=== PATIENT | female | born 1960 | race Caucasian/White ===

== ENCOUNTER 2017-05-12 16:53 | Emergency (ER) | payer MEDICARE, OTHER ==
[~2017-05-12] VITALS: Ht 172.7 cm; Wt 104.3 kg
--- OUTSIDE RECORDS SUMMARY | ~2017-05-12 | XMS | Clinical Summary ---
Demographics + + + | Address | [address] | | | [place] [address] | + + + | Home Phone [...] Providers + +------+ + | Care Solderer Name | Role | Phone | + +------+ + | Sulaiman Carrera MD | PP | Unavailable | + +------+ + Source Comments MARK is fully live on both [facility] and [facility] Allergies + + + [...] + + + + + + | Nmleqvc-Gkvtlaxvoc-N | | | 08/29/19 | Balance problems [...] in | | | | | | [facility]) | | | | | | [...] | imbalances, sleep apnea, neck pain, medication [id number] | + + + + + | [...]
[~2017-05-12 16:53] MED LIST: ACTONEL35 MG PO; ASPIRIN EC81 MG PO; AZITHROMYCIN500 MG PO; BETOPTIC S10 ML OU; BONIVA150 MG PO; BUTRANS1 EAC1 TD; CALCIUM + VITA1 EACH PO; CALCIUM PLUS D; CARAFATE1 GM PO; CEPHALEXIN500 MG PO; CLINDAMYCIN HC300 MG PO; CYANOCOBAL1000 MCG/M IM; CYMBALTA30 MG PO; CYMBALTA60 MG PO; GABAPENTIN300 MG PO; KEFLEX500 MG PO; LASIX80 MG PO; LEVAQUIN500 MG PO; LEVOFLOXACIN750 MG PO; LEVOTHROID50 MCG PO; LOMOTIL TABLET1 EACH PO; LORTAB 5-500 T1 EACH PO; METHOCARBAMOL750 MG PO; METOPROLOL SUCC50 MG PO; METOPROLOL TART50 MG PO; MULTIVITAMINS1 EAC7 PO; NAPROXEN500 MG PO; NICOTINE PATCH1 EAC1 TD; NITROGLYCERIN0.4 MG SL; NORCO 10-325 T1 EACH PO; NORCO 5-325 TA1 EACH PO; NORCO 7.5-3251 EACH PO; OMEPRAZOLE20 M1 PO; ONDANSETRON HCL4 MG PO; OXYCODONE HCL5 MG PO; OXYCONTIN20 MG PO; POTASSIUM CHLO10 MEQ PO; POTASSIUM CHLO20 ME1 PO; PREDNISONE20 MG PO; PROMETHAZINE HC25 M1 PO; PROVENTIL HFA6.7 GM INH; REQUIP0.5 MG PO; REQUIP1 MG PO; TIZANIDINE HCL4 MG PO; TOPIRAGEN50 MG PO; TORSEMIDE5 MG PO; TRAVATAN Z EYE GTTS; TRAVATAN Z5 ML OS; VITAMIN C500 M2 PO; VITAMIN D5000 UNIT PO; ZITHROMAX250 MG PO; ZITHROMAX500 MG PO; ZOFRAN4 MG PO
== END 2017-05-12 17:13 | disposition home or self-care (01) ==
LOC: ED 16:53
DX: J02.9 Acute pharyngitis, unspecified (principal); Z00.8 Encounter for other general examination

== ENCOUNTER 2017-06-25 09:52 | Emergency (ER) | payer MEDICARE, OTHER ==
[~2017-06-25] VITALS: Ht 172.7 cm; Wt 90.7 kg
--- OUTSIDE RECORDS SUMMARY | ~2017-06-25 | XMS | Clinical Summary ---
Demographics + + + | Address | [address] | | | [place] [address] | + + + | Home Phone [...] Team Providers + +------+ + | Care Tint Layer Name | Role | Phone | + +------+ + | Sulaiman Carrera MD | PP | Unavailable | + +------+ + Source Comments MARK is fully live on both [facility] Ambulatory and [facility] InPatient.[facility] Allergies + + + + + [...] + + + + + + | Eqifmog-Leyagkpbix-P | | | 08/29/19 | Balance problems [...] in | | | | | | [facility]) | | | | | | [...] | imbalances, sleep apnea, neck pain, medication [id number] | + + + + + | [...]
--- OUTSIDE RECORDS SUMMARY | 2017-06-25 10:40 | XMS | Clinical Summary ---
Demographics + + + | Address | [address] | | | [place] [address] | + + + | Home Phone | | + + + | Preferred Language | Unknown | + + + | Marital Status | Single | + + + | Latter Day Affiliation | ADV | + + + | Race | White | + + + | Ethnic Group | Not or | + + + Author + + + | Author | [facility] | + + + | Organization | [facility] | + + + | Address | Unknown | + + + | Phone | Unavailable | + + + Support +------+ +---------+ + | Name | Relationship | Address | Phone | +------+ +---------+ + ECON | Unknown | | +------+ +---------+ + ECON | Unknown | | +------+ +---------+ + Care Team Providers + +------+ + | Care Superintendent Warehouse Name | Role | Phone | + +------+ + | Sulaiman Carrera MD | PP | Unavailable | + +------+ + Source Comments MARK is fully live on both [facility] Ambulatory and [facility] InPatient.[facility] Allergies + + + + + + | Active Allergy | Reactions | Severity | Noted | Comments | | | | | Date | | + + + + + + | Amitriptyline | | | 10/04/19 | Grand mal seizures | | | | | 09 | | + + + + + + | Ciprofloxacin | | | 01/23/20 | | | | | | 06 | | + + + + + + | Clarithromycin | Hives | | 06/28/19 | Mainly in the legs | | | | | 08 | | + + + + + + | Clindamycin | | | 01/23/20 | | | | | | 06 | | + + + + + + | Codeine | | | 01/23/20 | | | | | | 06 | | + + + + + + | Gpsmshv-Jijowarwps-K | | | 08/29/19 | Balance problems | | sa-Caff | | | 09 | | + + + + + + | Butalbital-Acetamino | | | 02/22/20 | | | p-Caf-Cod | | | 09 | | + + + + + + | Cephalexin | | | 01/23/20 | | | | | | 06 | | + + + + + + | Ketorolac | Unknown | | 11/24/19 | | | | | | 15 | | + + + + + + | Levofloxacin | Hives, Pruritus | Medium | 01/11/20 | | | | | | 10 | | + + + + + + | Morphine | | | | IM ( only in | | | | | | [facility]) | | | | | | made gut pain worse | | | | | | 08/27/06: Trial of | | | | | | oral MSIR caused leg | | | | | | swelling | + + + + + + | Penicillins | | | 01/23/20 | | | | | | 06 | | + + + + + + | Sulfa (Sulfonamide | | | 01/23/20 | | | Antibiotics) | | | 06 | | + + + + + + | Sulfamethoxazole-Tri | Unknown | | | | | methoprim | | | | | + + + + + + | Tramadol | | | 01/23/20 | | | | | | 06 | | + + + + + + | Tramadol Hcl | Unknown | | | | + + + + + + Current Medications + + +-------+---------+------+------+-------+ | Prescription | Sig. | Disp. | Refills | Star | End | Statu | | | | | | t | Date | s | | | | | | Date | | | + + +-------+---------+------+------+-------+ | POTASSIUM CHLORIDE | take 3 tablet | | | | | Activ | | SR 20 MEQ TAB, | (20meq) by oral | | | | | e | | PARTICLES/CRYSTALS | route twice daily | | | | | | | | with food | | | | | | + + +-------+---------+------+------+-------+ | CALCIUM 600 WITH | 1000 mg tab 4 x | | | | | Activ | | VITAMIN D OR | daily | | | | | e | + + +-------+---------+------+------+-------+ | Cyanocobalamin | 1 inj q month | | | | | Activ | | 1,000 mcg/mL | | | | | | e | | Injection Syringe | | | | | | | + + +-------+---------+------+------+-------+ | Multivitamin Oral | 1 tab by mouth twice | | | | | Activ | | Tablet | daily | | | | | e | + + +-------+---------+------+------+-------+ | methocarbamol 750 | Take 1 tablet by | | | | | Activ | | mg Oral Tablet | mouth three times | | | | | e | | | daily. | | | | | | + + +-------+---------+------+------+-------+ | sucralfate | Take 1 Tab by mouth | 120 | 1 | 05/2 | | Activ | | (CARAFATE) 1 gram | before meals. | | | /20 | | e | | Oral Tablet | | | | 09 | | | + + +-------+---------+------+------+-------+ | gabapentin 300 mg | Take 900 mg by mouth | | | | | Activ | | Oral Tablet | three times daily. | | | | | e | + + +-------+---------+------+------+-------+ | cholecalciferol, | Take 4,000 Units by | | | | | Activ | | Vitamin D3, 1,000 | mouth once daily. | | | | | e | | unit Oral tablet | | | | | | | + + +-------+---------+------+------+-------+ | betaxolol | 1-2 drops two times | | | | | Activ | | (BETOPTIC S) 0.25 % | daily. | | | | | e | | Ophthalmic Drops, | | | | | | | | Suspension | | | | | | | + + +-------+---------+------+------+-------+ | travoprost | 1 drop once daily in | | | | | Activ | | (TRAVATAN Z) 0.004 % | the evening. | | | | | e | | Ophthalmic Drops | | | | | | | + + +-------+---------+------+------+-------+ | omeprazole 20 mg | Take 20 mg by mouth | | | | | Activ | | Oral capsule,delayed | two times daily. | | | | | e | | release(DR/EC) | | | | | | | + + +-------+---------+------+------+-------+ | furosemide 80 mg | Take 80 mg by mouth | | | | | Activ | | Oral tablet | two times daily. | | | | | e | + + +-------+---------+------+------+-------+ | torsemide 5 mg | Take 20 mg by mouth | | | | | Activ | | Oral tablet | once daily. | | | | | e | + + +-------+---------+------+------+-------+ | metoprolol | Take 50 mg by mouth | | | | | Activ | | tartrate 50 mg Oral | three times daily. | | | | | e | | tablet | | | | | | | + + +-------+---------+------+------+-------+ | DULoxetine 60 mg | Take 60 mg by mouth | | | | | Activ | | oral capsule,delayed | once daily. | | | | | e | | release(DR/EC) | | | | | | | + + +-------+---------+------+------+-------+ | topiramate 50 mg | Take 50 mg by mouth | | | | | Activ | | oral tablet | two times daily. | | | | | e | + + +-------+---------+------+------+-------+ | ondansetron ODT 4 | Take 4 mg by mouth | | | | | Activ | | mg oral | every twelve hours | | | | | e | | tablet,disintegratin | as needed. | | | | | | | g | | | | | | | + + +-------+---------+------+------+-------+ | buprenorphine | Apply 15 mcg to skin | | | | | Activ | | (BUTRANS) 15 | every seven days. | | | | | e | | mcg/hour transdermal | | | | | | | | patch weekly | | | | | | | + + +-------+---------+------+------+-------+ | | Take 1 tablet by | | | | | Activ | | HYDROcodone-acetamin | mouth every six | | | | | e | | ophen 10-325 mg oral | hours as needed. | | | | | | | tablet | | | | | | | + + +-------+---------+------+------+-------+ | levothyroxine 75 | Take 75 mcg by mouth | | | | | Activ | | mcg oral tablet | once daily. | | | | | e | + + +-------+---------+------+------+-------+ | meclizine 25 mg | Take 25 mg by mouth | | | | | Activ | | oral tablet | three times daily as | | | | | e | | | needed for | | | | | | | | nausea/vomiting. | | | | | | + + +-------+---------+------+------+-------+ | rOPINIRole 1 mg | Take 2 mg by mouth | | | | | Activ | | oral tablet | once daily in the | | | | | e | | | evening. | | | | | | + + +-------+---------+------+------+-------+ | nitroglycerin 0.4 | Place 0.4 mg under | | | | | Activ | | mg sublingual | tongue every five | | | | | e | | tablet, sublingual | minutes as needed | | | | | | | | for chest pain. | | | | | | | | Place under tongue | | | | | | | | and allow to | | | | | | | | dissolve. | | | | | | | | Administer every 5 | | | | | | | | minutes, max of 3 | | | | | | | | doses in 15 minutes. | | | | | | + + +-------+---------+------+------+-------+ Active Problems + + + | Problem | Noted Date | + + + | Post laminectomy syndrome | 06/23/2013 | + + + | Chronic migraine without aura, with status migrainosus | 06/23/2013 | + + + + + | Overview: since childhood, strong family history, metabolic | | imbalances, sleep apnea, neck pain, medication [id number] | + + + + + | IGT (impaired glucose tolerance) | 05/31/2013 | + + + | Falling | 10/03/2009 | + + + | Anal or rectal pain | 10/05/2008 | + + + | Muscle Strain hips | 08/22/2008 | + + + | Neck pain | 08/22/2008 | + + + | Radicular pain in left arm | 08/22/2008 | + + + | S/P Gastric Bypass Surgery November 22, 2003 | 07/25/2008 | + + + | Fibromyalgia | 07/25/2008 | + + + + + | Overview: Craniocervical junction appears stenotic in | | cervical extension. | + + + + + | Chronic Bilateral Shoulder Pain | 07/24/2008 | + + + + + | Overview: Left: Calcific tendinitis of the supraspinatus | | tendon.Right: Normal | + + + + + | Coccydynia | 07/24/2008 | + + + | Spinal Fusion Lumbar spine | 06/21/2008 | + + + + + | Overview: Surgery 05/15/08 Dr Ricky everett to | | get operative reports | + + + + + | Osteopenia | 08/24/2007 | + + + | LBP (low back pain) | 03/31/2007 | + + + | Encounter for long-term (current) use of medications | 01/11/2007 | + + + + + | Overview: ICD10 | + + + + + | Hypothyroidism | 11/11/2006 | + + + | Major Depressive Disorder, Recurrent Episode, Moderate | 07/31/2006 | + + + | Adjustment Disorder with Anxiety | 07/31/2006 | + + + | Iron deficiency | 03/09/2006 | + + + | Metabolic syndrome X 250.80 | | + + + | Essential hypertension | | + + + + + | Overview: ICD10 | + + + +---+ | Asthma 493.9 | | + +---+ | Myalgia and myositis | | + +---+ + + | Overview: <PROVIDER>DAVIDE LIZARRAGA | | | | ICD10 | + + + +---+ | Abnormal glucose | | + +---+ + + | Overview: ICD10 | + + Resolved Problems + + + + | Problem | Noted | Resolved | | | Date | Date | + + + + | Bilateral leg pain | 03/03/20 | | | | 08 | 9 | + + + + | Radiculitis, lumbosacral | 03/03/20 | | | | 08 | 9 | + + + + | Status post total knee replacement | 03/03/20 | | | | 08 | 9 | + + + + + + | Overview: ICD10 | + + + + + + | Abdominal Pain, dumping syndrome Hx of gastric bypass | 03/03/20 | | | | 08 | 9 | + + + + | Dumping syndrome | 03/03/20 | | | | 08 | 9 | + + + + | Diarrhea following gastrointestinal surgery | 03/01/20 | | | | 08 | 9 | + + + + | Status post total knee replacement | 03/31/20 | | | | 07 | 8 | + + + + + + | Overview: ICD10 | + + + + + + | DJD (degenerative joint disease) of knee | 12/23/19 | | | | 07 | 8 | + + + + | Pain in right Ankle and Foot | 12/23/19 | | | | 07 | 7 | + + + + + + | Overview: Bonde spur right heel | + + + + + + | Bilateral Knee Pain | 11/03/19 | | | | 07 | 8 | + + + + + + | Overview: Surgical opinion pending for right knee due | | DJD/arthritis | + + + + + + | Right Hip Region Pain | 10/24/19 | | | | 07 | 7 | + + + + | Neck pain | 08/12/19 | | | | 07 | 7 | + + + + + + | Overview: Myofacial pain and mechanical | | Negative pathology noted on xray | + + + + + + | Right shoulder rotator cuff strain | 07/02/19 | | | | 07 | 7 | + + + + | Spondylosis with myelopathy, lumbar region | 07/02/19 | | | | 07 | 9 | + + + + | Herniated Lumbar Intervertebral Disc L4-5 | 07/02/19 | | | | 07 | 9 | + + + + | Migraine headache | 05/29/20 | | | | 06 | 9 | + + + + + + | Overview: since childhood, strong family history, metabolic | | imbalances, sleep apnea, neck pain, medication reboundResolved | | since being on amitriptyline 50 mg per day | + + + +---+ + | Obstructive sleep apnea 780.57 | | | | | | 8 | + +---+ + + + | Overview: No longer uses CPAP | + + + +---+ + | Chronic abdominal pain | | | | | | 7 | + +---+ + + + | Overview: nococeptive and myofacial pain with weakness of the | | abdominal wall | + + Family History + + +------+ + | Medical History | Relation | Name | Comments | + + +------+ + | Arthritis | Brother | | | + + +------+ + | Additional Family | Father | | Migraine | | History | | | | + + +------+ + | Arthritis | Father | | | + + +------+ + | Heart Disease | Father | | | + + +------+ + | Allergies | Maternal | | | | | Grandfath | | | | | er | | | + + +------+ + | Arthritis | Maternal | | | | | Grandfath | | | | | er | | | + + +------+ + | Asthma | Maternal | | | | | Grandfath | | | | | er | | | + + +------+ + | Heart Disease | Maternal | | | | | Grandfath | | | | | er | | | + + +------+ + | Stroke | Maternal | | | | | Grandfath | | | | | er | | | + + +------+ + | Allergies | Maternal | | | | | Grandmoth | | | | | er | | | + + +------+ + | Arthritis | Maternal | | | | | Grandmoth | | | | | er | | | + + +------+ + | Heart Disease | Maternal | | | | | Grandmoth | | | | | er | | | + + +------+ + | Thyroid | Maternal | | | | | Grandmoth | | | | | er | | | + + +------+ + | Additional Family | Mother | | Migraine | | History | | | | + + +------+ + | Allergies | Mother | | | + + +------+ + | Arthritis | Mother | | | + + +------+ + | Cancer | Mother | | | + + +------+ + | Heart Disease | Mother | | | + + +------+ + | Thyroid | Mother | | | + + +------+ + | Allergies | Paternal | | | | | Grandfath | | | | | er | | | + + +------+ + | Arthritis | Paternal | | | | | Grandfath | | | | | er | | | + + +------+ + | Heart Disease | Paternal | | | | | Grandfath | | | | | er | | | + + +------+ + | Stroke | Paternal | | | | | Grandfath | | | | | er | | | + + +------+ + | Allergies | Paternal | | | | | Grandmoth | | | | | er | | | + + +------+ + | Arthritis | Paternal | | | | | Grandmoth | | | | | er | | | + + +------+ + | Heart Disease | Paternal | | | | | Grandmoth | | | | | er | | | + + +------+ + | Stroke | Paternal | | | | | Grandmoth | | | | | er | | | + + +------+ + | Arthritis | Sister | | | + + +------+ + | Allergies | Sister | | | + + +------+ + + +------+--------+ + | Relation | Name | Status | Comments | + +------+--------+ + | Brother | | | | + +------+--------+ + | Father | | | | + +------+--------+ + | Maternal Grandfather | | | | + +------+--------+ + | Maternal Grandmother | | | | + +------+--------+ + | Mother | | | | + +------+--------+ + | Paternal Grandfather | | | | + +------+--------+ + | Paternal Grandmother | | | | + +------+--------+ + | Sister | | | | + +------+--------+ + | Sister | | | | + +------+--------+ + Social History + + + +--------+------+ | Tobacco Use | Types | Packs/Day | Years | Date | | | | | Used | | + + + +--------+------+ | Former Smoker | Cigarettes | 0.5 | 35 | | + + + +--------+------+ + + | Comments: one pack in five days | + + + + +---------+ + | Alcohol Use | Drinks/We | oz/Week | Comments | | | ek | | | + + +---------+ + | No | | | | + + +---------+ + + + + | Sex Assigned at | Date Recorded | | | | + + + | Not on file | | + + + Last Filed Vital Signs + + + + | Vital Sign | Reading | Time Taken | + + + + | Blood Pressure | 122/69 | 02/05/2017 1:12 PM PDT | + + + + | Pulse | 63 | 02/05/2017 1:12 PM PDT | + + + + | Temperature | 36.7 C (98.1 F) | 08/09/2013 4:27 PM PST | + + + + | Respiratory Rate | 15 | 02/05/2017 1:12 PM PDT | + + + + | Oxygen Saturation | 97% | 02/05/2017 1:12 PM PDT | + + + + | Inhaled Oxygen | - | - | | Concentration | | | + + + + | Weight | 93.9 kg (207 lb) | 02/05/2017 1:12 PM PDT | + + + + | Height | 172.7 cm (5' 8") | 02/05/2017 1:12 PM PDT | + + + + | Body Mass Index | 31.47 | 02/05/2017 1:12 PM PDT | + + + + Plan of Treatment + + + + + | Health Maintenance | Due Date | Last Done | Comments | + + + + + | INFLUENZA VACCINE | | 02/06/2016, 02/14/2015, | | | (FLU SHOT) | 7 | 02/16/2014, Additional history | | | | | exists | | + + + + + Results Not on filefrom Last 3 Months
== END 2017-06-25 11:45 | disposition home or self-care (01) ==
LOC: ED 09:52
DX: R11.2 Nausea with vomiting, unspecified (principal); G43.909 Migraine, unspecified, not intractable, without status migrainosus; Z87.891 Personal history of nicotine dependence; Z88.1 Allergy status to other antibiotic agents; Z88.5 Allergy status to narcotic agent; Z88.0 Allergy status to penicillin; Z88.2 Allergy status to sulfonamides; Z88.8 Allergy status to other drugs, medicaments and biological substances; Z88.6 Allergy status to analgesic agent; Z79.899 Other long term (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
CPT/HCPCS: 80053; 82150; 83690; 85025; 87502; 96374; 99283; J2405; J7030

== ENCOUNTER 2018-03-05 17:00 | Inpatient (IN) | payer MEDICARE, OTHER ==
[~2018-03-05] VITALS: Ht 172.7 cm; Wt 105.2 kg
--- NOTE | ~2018-03-05 | DS ---
[facility] [address], [place] [address] Draft ADMISSION DATE: 03/05/2018 DISCHARGE DATE: REASON FOR ADMISSION: Small bowel obstruction. HISTORY OF PRESENT ILLNESS: This 58-year-old woman presents to the emergency room with nausea, abdominal pain, thought likely related initially to the urinary tract infection. Her urinalysis was abnormal. She had a slightly elevated white count, some vomiting, and diarrhea. She had been started on Rocephin intravenously, and Omnicef antibiotic as an outpatient. She returned to the emergency room, and was evaluated by Dr. Liam Forst. Noted that she was intolerant of antibiotics and unable to fill her Zofran prescription due to insurance reasons. She had more abdominal pain and distention. A CT scan was obtained by Dr. Frost, which showed findings of high-grade bowel obstruction considered distal small bowel. There was no evidence of pneumatosis or perforation. White count was elevated at 13.5, hematocrit 49.3, platelets 213,000. Electrolytes were normal. Urinalysis was not repeated. She has a complex past medical history, including multiple chronic illnesses, but more dominantly history of gastric bypass operation. Small bowel obstruction in the past requiring operation. History of cholecystectomy, left knee and shoulder arthroscopic operations and weight loss related to her gastric bypass requiring redundant skin removal in the past. Other history includes ovariectomy, hysterectomy and appendectomy. She is admitted for further evaluation and care. PERTINENT PHYSICAL EXAMINATION: GENERAL: Showed an elderly white woman, looking vastly older than age of 58 years. Mucous membranes are slightly dry. Trachea midline. CHEST: Clear. HEART: Regular without murmur. ABDOMEN: Protuberant and obese. There is a midline incision. Laparoscopic incisions are noted from other operative interventions. HOSPITAL COURSE: She was admitted given aggressive fluid resuscitation due to bowel obstructive process. The CT scan was reviewed confirming a rather extensive bowel obstruction most of it appearing to be originating in the terminal ileum somewhere another. A nasogastric tube was placed draining copious amounts of fluid. She had a fair amount of tenderness of her abdomen initially, but this improved with hydration and nasogastric tube decompression. She was observed, though she to noted that she felt "miserable" with PATIENT NAME: NAFISA GALARZA DISCHARGE SUMMARY DATE OF : 58 REPORT #: [id number] PHYSICIAN: LANIE KILGORE MD PCP: JOHN DESAI REPORT IS CONFIDENTIAL AND NOT TO BE RELEASED WITHOUT AUTHORIZATION [facility] [address], [place] [address] Draft pain all over, including her abdomen, but not dominantly in her abdomen. This is her usual and customary state of affairs (chronic pain). Consideration was made for small-bowel follow-through with Gastrografin as it would possibly allow for stimulation of her gout and resolution of the obstruction. However, she strongly preferred operative intervention. On March 07, 2018, she underwent extensive intraabdominal adhesiolysis of small bowel loops with adhesions, but there was no transition point related to adhesions particularly. Extensive adhesions were noted indeed. The anatomy of a Zoe-en-Y gastric bypass was noted, though her stomach appeared to be largely intact with no sign of small gastric pouch. 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 There were ischemic change of the ileum and to some degree the cecum itself related to this. Notably, the right colon was markedly dilated and the cecal bascule extended into the pelvis. This culminated in a right partial colectomy with jncb-hi-ngnf ileocolostomy (efren type). The operation was prolonged, complicated, and difficult taking over 5 hours. She was taken to the intensive care unit postoperatively for further management. A drain was left in place in the region of the right colon and pelvis. She was able to be extubated, however. She had considerable third space losses as manifested by elevated heart rate and low urine output. This was responsive to fluid boluses that were given using lactated Ringer's solution. In time, her urine output picked up though she remained somewhat tachycardic. IV metoprolol was administered on the basis of known abstinence from her longstanding beta-colby use, which controlled her heart rate, but did not markedly decrease her blood pressure and indeed improved her urine output actually. She had progressive recovery and in time was able to have a nasogastric tube removed. She did have elevated temperature at one point requiring more aggressive pulmonary toilet, which was beneficial including the use of incentive spirometry. The drain was within the abdomen, and showed no drainage of purulent material or other issue and therefore, it was removed. She was advanced in her diet from liquids to a more full liquid diet and ultimately added Ensure. She noted marked diarrhea by that point and recounted a fact that she is lactose intolerant. Her diet was improved with avoiding lactose containing foods and had resolution of her diarrhea, but still good ongoing bowel function, and urine output. Once transferred to the floor, efforts were made to improve her ambulation. She did develop some drainage in the lower aspect of her long midline incision. This was opened at the bedside and had egress of a fair amount of old blood and fluid. Digital palpation the abdominal fascia showed it to be completely intact. There was no sign of dehiscence. Gram stain and cultures were obtained. No sign of growth on cultures. By day of discharge, the initial Gram stain showed a few gram-positive cocci. PATIENT NAME: NAFISA GALARZA DISCHARGE SUMMARY DATE OF : 58 REPORT #: [id number] PHYSICIAN: LANIE KILGORE MD PCP: JOHN DESAI REPORT IS CONFIDENTIAL AND NOT TO BE RELEASED WITHOUT AUTHORIZATION [facility] [address], [place] [address] Draft Nevertheless, she was covered for pathogens with Levaquin and Flagyl. She is ready to go home at this point. She will be doing wound care on her own with Kerlix gauze applied to the depths of the wound twice a day. She is advised to shower on a daily basis and allow water to enter into the wound. Clips were left in place. The skin will remain so for the time being and be removed in the office setting. She is to lift no more than 20 pounds for the next four weeks. Her diet is as usual. DISCHARGE MEDICATIONS: Will include, 1. Levaquin 750 mg one p.o. daily, #5. 2. Flagyl 250 mg tablets 500 mg p.o. t.i.d. with meals, quantity 15. 3. Methocarbamol 750 mg p.o. q.4 hours as needed for muscle spasms. 4. Carafate 1 g p.o. q.i.d. as needed for stomach pain. 5. Levothyroxine 75 mcg p.o. daily. 6. Lasix 80 mg p.o. b.i.d. 7. Torsemide 5 mg p.o. five days a week Thursday through Thursday. 8. Multivitamin one p.o. daily. 9. Nitroglycerin sublingual 0.4 mg as needed for chest pain. 10. Lomotil 1 tablets four times a day as needed for diarrhea. 11. Calcium carbonate, calcium tablets 500 mg p.o. 3 times a day. 12. Gabapentin 900 mg p.o. 3 times daily. 13. Potassium chloride 20 mEq three tabs p.o. daily. 14. Peacham 10/325 one tablet p.o. five times daily as needed for pain (longstanding). 15. Vitamin C 500 mg p.o. t.i.d. 16. Vitamin B12 injection 1000 mcg intramuscularly monthly. 17. Naloxone injection as needed for over-sedation. 18. Meclizine 25 mg tablets t.i.d. as needed for nausea. 19. Zoledronic acid mannitol (Reclast 5 mg intravenously annually). 20. Zofran 4 mg p.o. t.i.d. as needed for nausea. 21. Metoprolol 25 mg one-half tab p.o. b.i.d. 22. Topiramate 50 mg tablets two tabs p.o. b.i.d. 23. Vitamin D3 5000 units p.o. daily. 24. Omeprazole 20 mg p.o. b.i.d. 25. Sumatriptan tablet 25 mg as needed for migraine. 26. Combigan eye drops 5 mL solution, one drop each eye two times daily. 27. Fluticasone 16 g spray nasally as needed for allergies. 28. Ketoconazole 15 g cream to areas of rash as needed. 29. Systane Balance 10 mL drops in each eye as needed for dry eyes. 30. Olopatadine 2.5 mg drops each eye as needed for allergies. DISCHARGE DIAGNOSES: PATIENT NAME: NAFISA GALARZA DISCHARGE SUMMARY DATE OF : 58 REPORT #: [id number] PHYSICIAN: LANIE KILGORE MD PCP: JOHN DESAI REPORT IS CONFIDENTIAL AND NOT TO BE RELEASED WITHOUT AUTHORIZATION [facility] [address], [place] [address] Draft 1. 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 2. Extensive intraabdominal adhesions. 3. History of gastric bypass operation, Zoe-en-Y type. 4. Status post exploratory laparotomy, extensive lysis of adhesions and right partial colectomy with primary anastomosis for obstructing cecal bascule with ischemia of cecum and ileum. 5. Morbid obesity. 6. Hypothyroidism. 7. Hypertension. 8. Non ulcer dyspepsia. 9. Postoperative wound drainage, not definitive for infection. FOLLOWUP PLAN: She is return to see me in approximately 10 days or so at which point, clips will be removed. She will change her gauze dressing b.i.d. and allow water to enter the wound as needed. She will lift no more than 20 pounds for the next four weeks and she is instructed to ambulate as much as possible. MD DANO Zapien/PRICE /[id number] cc: Liam Desai MD Copies: LIAM FROST CLAUDIU-GILY ~ PATIENT NAME: NAFISA GALARZA DISCHARGE SUMMARY DATE OF : 58 REPORT #: [id number] PHYSICIAN: LANIE KILGORE MD PCP: JOHN DESAI REPORT IS CONFIDENTIAL AND NOT TO BE RELEASED WITHOUT AUTHORIZATION
--- OUTSIDE RECORDS SUMMARY | ~2018-03-05 | XMS | Encounter Summary ---
Demographics + + + | Address | [address] | | | [place] [address] | + + + | Home Phone | | + + + | Preferred Language | Unknown | + + + | Marital Status | | + + + | Cheondoism Affiliation | 1001 | + + + | Race | Unknown | + + + | Ethnic Group | Unknown | + + + Author + + + | Author | [facility] | | | and Jairana | + + + | Organization | [facility] | | | [...] Team Providers + +------+ + | Care Spray Mixer Name | Role | Phone | + +------+ + | Petrona Thapa | PCP | | | MD | | | + +------+ + Reason for Visit Self-referral (Routine) +--------+--------+ + + + + | Status | Reason | Specialty | Diagnoses / | Referred By | Referred To | | | | | Procedures | Contact | Contact | +--------+--------+ + + + + | Closed | | Audiology | Diagnoses | | Esarey, | | | | | | | [place], [place] | | | | | Vertigo/Medi | | CCC-A [address] | | | | | care/Emmy | | [address] | | | | | /Self | | [address] | | | | | Procedures | | [place] | | | | | OFFICE VISIT | | [phone] Phone: | | | | | REGULAR | | [phone] | | | | | | | Fax: | | | | | | | [phone] | +--------+--------+ + + + + Encounter Details +--------+---------+ + + + | Date | Type | Department | Care Team | Description | +--------+---------+ + + + | 12/30/ | Office | [facility] | Elisabet Munson [place] | Subjective tinnitus | | 2018 | Visit | AUDIOLOGY AND | CCC-A [address] | of left ear (Primary | | | | [facility] | [address] | Dx) | | | | [address] | [place] [address] | | | | | [address] | [phone] | | | | | [place] [address] | | | | | | [phone] | | | +--------+---------+ + + + [...] on file | | + + + as of this encounter Progress Notes Elisabet Munson, CCC-A - 12/30/2017 1330 PDTReferring Provider: Petrona Yao Ms. Meehan is troubled by and echoing noise and sensation in her left ear. She feels that her hearing has gotten worse. She is still experiencing balance difficulty and uses a supp ort cane in her left hand. Results of Hearing Test: Right ear--Pure tone air and bone conduction testing showed 25-20d B threshold at 250 Hz through 8 KHz. Left ear --Pure tone air and bone conduction testing showed 25-45dB threshold at 250 Hz through 8 KHz. Speech Recognition Thresholds were 20dB in the right ear and 30dB in the left ear. Speech Discrimination Scores were 100% in right ear and 96% in the left ear. Tympanometry showed normal type A tracing in the right ear and Type C with negative mid dle-ear air pressure in the left ear. Impression and Recommendation: A sensory-neural hearing loss, left ear worse than right ea r. Echoing noise in the left ear. Follow-up care with Dr. Genao, Sr. Thank you. in this encounter Plan of Treatment +--------+---------+ + + + | Date | Type | Specialty | Care Team | Description | +--------+---------+ + + + | 03/16/ | Office | Internal Medicine | Alanis, | | | 2017 | Visit | | MD Petrona | | | | | | [address] [place] [address] [place] | | | | | | [place] [address] | | | | | | [phone] | | | | | | | | +--------+---------+ + + + | 04/26/ | Office | Orthopedic Surgery | Alanis, | | | 2017 | Visit | | MD Petrona | | | | | | [address] | | | | | | [place] [address] | | | | | | [phone] | | | | | | | | | | | | Lc Vail MD | | | | | | [address] [place] | | | | | | [place] | | | | | | [address] | | | | | | [phone] | | | | | | | | +--------+---------+ + + + as of this encounter Procedures + +--------+ + + + | Procedure Name | Priori | Date/Time | Associated Diagnosis | Comments | | | ty | | | | + +--------+ + + + | DIAGNOSTIC REPORT - | | 12/30/2017 | | Results for this | | EXTERNAL SCAN | | 0000 PDT | | procedure are in the | | | | | | results section. | + +--------+ + + + in this encounter Results DIAGNOSTIC REPORT - EXTERNAL SCAN (12/30/2017) + + + | Narrative | Performed At | + + + | Ordered by an | | | unspecified provider. | | + + + in this encounter Visit Diagnoses + + | Diagnosis | + + | Subjective tinnitus of left ear - Primary | + +"
--- OUTSIDE RECORDS SUMMARY | ~2018-03-05 | XMS | Encounter Summary ---
Demographics + + + | Address | [address] | | | [place] [address] | + + + | Home Phone | | + + + | Preferred Language | Unknown | + + + | Marital Status | | + + + | Alevism Affiliation | 1001 | + + + | Race | Unknown | + + + | Ethnic Group | Unknown | + + + Author + + + | Author | [facility] | | | and Jairana | + + + | Organization | [facility] | | [...] Team Providers + +------+ + | Care Landscape Supervisor Name | Role | Phone | + +------+ + | Petrona Thapa | PCP | | | MD | | | + +------+ + Encounter Details +--------+ + + + + | Date | Type | Department | Care Team | Description | +--------+ + + + + | 01/15/ | Procedure | [facility] | | | | 2018 | Pass | [facility] MRI [address] | | | | | | [place], | | | | | | [place] [address] | | | | | | [phone] | | | +--------+ + + + [...] + + + as of this encounter Plan of Treatment +--------+---------+ + + + | Date | Type | Specialty | Care Team | Description | +--------+---------+ + + + | 03/16/ | Office | Internal Medicine | Alanis, | | | 2017 | Visit | | MD Petrona | | | | | | [address] [place] | | | | | | [place] [address] | | | | | | [phone] | | | | | | | | +--------+---------+ + + + | 04/26/ | Office | Orthopedic Surgery | Alanis, | | | 2017 | Visit | | MD Petrona | | | | | | [address] | | | | | | [place] [address] | | | | | | [phone] | | | | | | | | | | | | Lc Vail MD | | | | | | [address] [place] | | | | | | [place] | | | | | | [address] | | | | | | [phone] | | | | | | | | +--------+---------+ + + + as of this encounter Visit Diagnoses Not on filein this encounter"
--- OUTSIDE RECORDS SUMMARY | ~2018-03-05 | XMS | Encounter Summary ---
Demographics + + + | Address | [address] | | | [place] [address] | + + + | Home Phone | | + + + | Preferred Language | Unknown | + + + | Marital Status | | + + + | Oriental Orthodox Affiliation | 1001 | + + + | Race | Unknown | + + + | Ethnic Group | Unknown | + + + Author + + + | Author | [facility] | | | and Jairana | + + + | Organization | [facility] | [...] Team Providers + +------+ + | Care Ditch Worker Name | Role | Phone | + +------+ + | Petrona Thapa | PCP | | | MD | | | + +------+ + Reason for Visit + + + | Reason | Comments | + + + | Injections | Vitamin B12 | + + + Encounter Details +--------+ + + + + | Date | Type | Department | Care Team | Description | +--------+ + + + + | 02/17/ | Clinical | [facility] INTER[facility] | Alanis, | Vitamin B12 | | 2018 | Support | MEDICINE [address] [place] [address] | MD Petrona | deficiency | | | | [facility] | [address] [place] [address] | | | | | [place] [address] | [place] [address] | | | | | [phone] | [phone] | | | | | | | [...] + as of this encounter Progress Notes Maggie Montoya LPN - 02/17/2018 1115 PDTFormatting of this note may be different from the o [place]. Administrations This Visit cyanocobalamin (VITAMIN B-12) injection 1,000 mcg Admin Date 02/17/2018 Action Given Dose 1000 mcg Route Intramuscular Administered By Maggie Montoya LPN Vitamin B12 1000mcg given IM left deltoid. Patient tolerated injection well. in this encounter Plan of Treatment +--------+---------+ + + + | Date | Type | Specialty | Care Team | Description | +--------+---------+ + + + | 03/16/ | Office | Internal Medicine | Alanis, | | | 2017 | Visit | | MD Petrona | | | | | | [address] [place] [address] [place] | | | | | | [place] [address] | | | | | | [phone] | | | | | | | | +--------+---------+ + + + | 04/26/ | Office | Orthopedic Surgery | Alanis, | | | 2017 | Visit | | MD Petrona | | | | | | [address] | | | | | | [place] [address] | | | | | | [phone] | | | | | | | | | | | | Lc Vail MD | | | | | | [address] | | | | | | [place] | | | | | | [address] | | | | | | [phone] | | | | | | | | +--------+---------+ + + + as of this encounter Visit Diagnoses + + | Diagnosis | + + | Vitamin B12 deficiency | + + | Other B-complex deficiencies | + + Administered Medications + +--------+ +--------+------+ + | Medication Order | MAR | Action | Dose | Rate | Site | | | Action | Date | | | | + +--------+ +--------+------+ + | cyanocobalamin (VITAMIN B-12) | Given | 11/17/2017 | 1,000 | | Deltoid- | | injection 1,000 mcg 1,000 mcg, | | 11:16 | mcg | | Left | | Intramuscular, EVERY 30 DAYS, | | PDT | | | | | First dose on [facility] 10/15/17 at 1215 | | | | | | + +--------+ +--------+------+ + +-------+ +--------+---+ + | Given | | 1,000 | | Deltoid- | | | 8 10:40 | mcg | | Left | | | PDT | | | | +-------+ +--------+---+ + | Given | 02/17/2018 | 1,000 | | Deltoid- | | | 11:49 | mcg | | Left | | | PDT | | | | +-------+ +--------+---+ + +---+---+ | | | +---+---+ in this encounter"
--- OUTSIDE RECORDS SUMMARY | ~2018-03-05 | XMS | Clinical Summary ---
Demographics + + + | Address | [address] | | | [place] [address] | + + + | Home Phone [...] Phone | + + +---------+ + | ROSINA KENNEDY | ECON | Unknown | | + + +---------+ + | DON KENNEDY | ECON | Unknown | | + + +---------+ + Care Team Providers + +------+ + | Care Binding End Stitcher Name | Role | Phone | + +------+ + | Sulaiman Carrera MD | PP | Unavailable | + +------+ + Source Comments MARK is fully live on both EpicCare Ambulatory and EpicCare InPatient.[facility] Allergies + + + + + [...] + + + + + + | Bfeuxca-Poldaeombr-K | | | 08/29/19 | Balance problems [...] in | | | | | | [facility]) | | | | | | [...] gram | before meals. | | | 9/20 | | e | | Oral Tablet [...] | | | | e | | release(/CARLA) | | | | | | | [...] | imbalances, sleep apnea, neck pain, medication [id number] | + + + + + | [...] + + | 04/07/ | Office | | Sushila Belle, | | | 2018 | Visit | | AGACNP [address] | | | | | | [place], [place] | | | | | | [address] | | | | | | [phone] | | | | | | | | +--------+---------+ + + + + + + + + | Health Maintenance | Due Date | Last Done | Comments | + + + + + | INFLUENZA VACCINE | | 02/04/2017 | | | (FLU SHOT) | 8 | | | + + + + + Results Not on filefrom Last 3 Months Insurance + +--------+ +--------+ + + | Payer | Benefi | Subscriber | Type | Phone | Address | | | t Plan | ID | | | | | | / | | | | | | | Group | | | | | + +--------+ +--------+ + + | MEDICARE | MEDICA | xxxxxxxxxx | Medica | +1- | [address] | | | RE A & | | re | [phone] | [place] [address] | | | B | | | | | + +--------+ +--------+ + + | GROUT PUMP OPERATOR MEDICAID | GROUT PUMP OPERATOR | xxxxxxxx | Medica | | | | | [place] | | id | | | | | [place] | | | | | + +--------+ +--------+ + + + +--------+ +--------+ + + | Guarantor Name | Accoun | Relation to | Date | Phone | Billing Address | | | t Type | Patient | of | | | | | | | | | | + +--------+ +--------+ + + | BELINDA MEEHAN | Person | Self [birth year] | Home: | [address] | | | al/Fam | | 9 | +1- | [place] [address] | | | bijan | | | 8583 | | + +--------+ +--------+ + + | BELINDA MEEHAN | Medica | Self | [birth year] | Home: | [address] | | | re | | 1959 | +- | [place] [address] | | | Recurr | | | [address]83 | | | | ing | | | | | + +--------+ +--------+ + +
--- OUTSIDE RECORDS SUMMARY | ~2018-03-05 | XMS | Encounter Summary ---
Demographics + + + | Address | [address] | | | [place] [address] | + + + | Home Phone | | + + + | Preferred Language | Unknown | + + + | Marital Status | | + + + | Mosque Affiliation | 1001 | + + + | Race | Unknown | + + + | Ethnic Group | Unknown | + + + Author + + + | Author | [facility] | | | and Jairana | + + + | Organization | [facility] [...] Team Providers + +------+ + | Care Cattle Rancher Name | Role | Phone | + [...] | Specialty | Physical | Diagnoses | Genna | [facility] | | Services | Therapy | Acute pain | MD Lc | HOSPITAL | | | Required | | of right | [address] | PHYSICAL | | | | | shoulder | [address] [place] | THERAPY [address] | | | | | Tear of | [place] | [place] | | | | | right | [address] | [place] | | | | | supraspinatu | Phone: | [phone] | | | | | s tendon, | [phone] | Phone: | | | | | initial | Fax: | [phone] | | | | | encounter | [phone] | Fax: | | | | | | | [phone] | +--------+ + + + + + Evaluate & Treat (Routine) +--------+ + + + + + | Status | Reason | Specialty | Diagnoses / | Referred By | Referred To | | | | | Procedures | Contact | Contact | +--------+ + + + + + | Closed | Specialty | Orthopedic | Diagnoses | | Audi, | | | Services | Surgery | Acute pain | Emmy-Tajt | Ruben Leonardo MD | | | Required | | of right | i, | [address] | | | | | shoulder | Sulaiman-Gily | [place] | | | | | Tear of | , [address] | [place], [place] | | | | | right | [address] | [address] Phone: | | | | | supraspinatu | [place], | [phone] | | | | | s tendon, | [place] | Fax: | | | | | initial | [address] | [phone] | | | | | encounter | Phone: | | | | | | | [phone] | | | | | | | Fax: | | | | | | | [phone] | | +--------+ + + + + + Reason for Visit + + + | Reason | Comments | + + + | New Patient | right shoulder onset 3 months | + + + Evaluate & Treat (Routine) +--------+ + + + + + | Status | Reason | Specialty | Diagnoses / | Referred By | Referred To | | | | | Procedures | Contact | Contact | +--------+ + + + + + | Closed | Specialty | Orthopedic | Diagnoses | | Audi, | | | Services | Surgery | Acute pain | Emmy-Tajt | Ruben Leonardo MD | | | Required | | of right | i, | [address] | | | | | shoulder | Sulaiman-Russell | [place] | | | | | Tear of | MD [address] | [place] | | | | | right | [address] | [address] Phone: | | | | | supraspinatu | [place], | [phone] | | | | | s tendon, | [place] | Fax: | | | | | initial | [address] | [phone] | | | | | encounter | Phone: | | | | | | | [phone] | | | | | | | Fax: | | | | | | | [phone] | | +--------+ + + + + + Encounter Details +--------+---------+ + + + | Date | Type | Department | Care Team | Description | +--------+---------+ + + + | 02/23/ | Office | [facility] | Lc Vail, | Acute pain of right | | 2018 | Visit | ORTHOPEDIC SURGERY | [address] [place] [address] | shoulder; Tear of | | | | [address] [facility] | [place], [place] | right supraspinatus | | | | [place] | [address] | tendon, initial | | | | [address] | [phone] | encounter | | | | [phone] | | | +--------+---------+ + + + [...] + + + as of this encounter Last Filed Vital Signs + + + + | Vital Sign | Reading | Time Taken | + + + + | Blood Pressure | - | - | + + + + | Pulse | - | - | + + + + | Temperature | - | - | + + + + | Respiratory Rate | - | - | + + + + | Oxygen Saturation | - | - | + + + + | Inhaled Oxygen | - | - | | Concentration | | | + + + + | Weight | 101.6 kg (224 lb) | 02/23/20181308 PDT | + + + + | Height | 172.7 cm (5' 8") | 02/23/20181308 PDT | + + + + | Body Mass Index | 34.06 | 02/23/20181308 PDT | + + + + in this encounter Instructions Patient Instructions - Lc Vail MD - 02/23/2018 1330 PDTFormatting of this note may be different from the original. "Reaching Up" for Shoulder Flexibility This stretch can help restore shoulder flexibility and relieve pain over time. When stretch ing, be sure to breathe deeply. And follow any special instructions from your healthcare pro vider or therapist. 1. Raise the hand on the side you want to stretch as high as you can. Then grasp a stable s urface, such as a bookcase or a doorframe, with the same hand. 2. Keeping your arm straight, lower your body by bending your knees. Stop when you feel the stretch in the shoulder. Try to hold the stretch [id number]. 3. Work up to [id number] of this stretch,3times a day. Work up to holding the stret ch for30 to 60seconds. Note: Your back should remain straight. To enhance the stretch over time, try to bend your knees lower. Or, raise your arm higher at the start of the stretch. Frozen shoulder Frozen shoulder is another name for adhesive capsulitis. This causes restricted movement in the shoulder. If you have frozen shoulder, this stretch may cause mild pain, especially whe n you first get started. A few months may pass before you achieve the results you want. But once your shoulder heals, it rarely becomes frozen again. So stick to your stretching progra m. If you have any questions, ask your healthcare provider. Date Last Reviewed: 07/16/201719998526-5410 [employer] [place] [address]. All [facility] ts reserved. This information is not intended as a substitute for professional medical care. Always follow your healthcare professional's instructions. in this encounter Progress Notes Lc Vail MD - 02/23/2018 1330 PDTFormatting of this note may be different from the original. [facility] HISTORY AND PHYSICAL EXAMINATION Pt. Name/Age/: Belinda Meehan 58 y.o. 1960 Primary Care Physician: Petrona Thapa Chief Complaint/Reason for Visit: New Patient (right shoulder onset 3 months ) History of Present Illness: The patient is a pleasant 58 y.o. female who presents with a three-month history of right s houlder pain. It began without incident. It bothers her at night at this point. She state s that moving and stretching make her pain worse. She can't comb her hair without crying. She has tried physical therapy and heat albeit not physical therapy for her shoulder. She h as had no previous injections. She states her pain right now is an 8 out of 10 and at her w orst her pain is a 10 out of 10. Her pain is getting worse as time goes on. She quit smoki ng in 2013. Past Medical History: Past Medical History: Diagnosis [...] apnea Spondylosis with myelopathy, lumbar region Stroke ([facility]) Syncope Tremor Type II or unspecified type diabetes mellitus with other specified manifestations, not stated as uncontrolled 05/04/2017 Vitamin D deficiency Past Surgical History: Procedure Laterality Date ADENOIDECTOMY APPENDECTOMY BREAST LUMPECTOMY Left 2001 CARPAL TUNNEL RELEASE 2001 SECTION CHOLECYSTECTOMY 2004 COLONOSCOPY N/A 12/18/2017 Procedure: COLONOSCOPY; Surgeon: Luther Brito MD; Location: [facility] MEDICAL PROCEDURE UNIT DILATION AND CURETTAGE OF UTERUS ELBOW SURGERY FINGER TRIGGER RELEASE 2002 FINGER TRIGGER RELEASE 2010 GASTRIC BYPASS SURGERY 2004 HYSTERECTOMY 05/14/1980 JOINT REPLACEMENT Bilateral 2007,2008 KNEE ARTHROSCOPY 2005 LAPAROSCOPY 01/27/2015 LAPAROTOMY 2008 ROTATOR CUFF REPAIR 2005 SPINE SURGERY TONSILLECTOMY 1964 UPPER GASTROINTESTINAL ENDOSCOPY N/A 12/18/2017 Procedure: EGD; Surgeon: Luther Brito MD; Location: [facility] MEDICAL PROCEDURE UNIT Allergies: Allergies Allergen Reactions Codeine Sulfate Nausea Only Levofloxacin Hives, Itching and Rash Amitriptyline Hcl Other (See Comments) Confused and questionable for seizures Dvqvbywxvc-Orer-Sbyssfjc Hives and Rash Cephalexin Hives Ciprofloxacin Hives and Rash Clarithromycin Hives and Rash Clindamycin Hcl Hives and Rash Doxycycline Rash Duloxetine Other (See Comments) Migraines and nausea Ketorolac Hives Levofloxacin Hives and Rash Morphine Swelling Penicillins Hives and Rash Ropinirole Hcl Hives Sulfamethoxazole-Trimethoprim Hives and Rash Tramadol Hcl Nausea Only Current Medications: Current Outpatient Prescriptions Medication Sig Dispense Refill [...] hour s. 120 tablet 3 potassium chloride (KLOR-CON M20) 20 mEq ER [...] Days Morelia Thapa MD 1,000 mcg at 02/17/18 1149 triamcinolone acetonide (KENALOG-40) 40 mg/mL injection 40 mg 40 mg Intra-articular On ce Lc Vail MD Family History: Family History Problem Relation Age [...] High blood pressure Son Renal Failure Son Social History: Social History Social History Marital status: Spouse name: N/A Number of children: 2 Years of education: N/A Occupational History Not on file. Social History Main Topics Smoking status: Former Smoker Packs/day: 0.50 Years: 30.00 Types: Cigarettes Quit date: 04/15/2014 Smokeless tobacco: Never Used Comment: stopped smoking Alcohol use No Drug use: No Sexual activity: No Other Topics Concern Not on file Social History Narrative No narrative on file Review of Systems All of these are negative unless otherwise marked Eyes: [] Double vision [] Glasses/contacts [] Failing vision Respiratory: [] Asthma/Wheezing [] Pneumonia [] Night sweats [] Shortness of breath [] Chronic cough [] Coughing up blood [] Exposure to tuberculosis Cardiovascular: [] Heart Problems [] Hypertension [] Heart murmur [] Palpitations [] Rheumatic fever [] Phlebitis [] Chest pain [] Ankle swelling [] Leg cramps [] Racin g heart [] Skipping beats [] Blood clots Urinary Tract: [] Painful urination [] Kidney Stones [] Any urine leakage [] Weak urine stream [] Night urination [] Urine infections [] Bedwetting [] Blood in urine Ear/Nose/Throat: [] Frequent Colds [] Sinus Disease [] Nose obstruction [] Sneezing Spells [] Change in taste [] Artificial teeth [] Ears ringing [] Ear pain [] Hearing loss [] Teeth problems [] Hoarseness [] Neck swelling [] Sore throat [] Congestion [] Nosebleeds [] Nasal allergies Gastrointestinal: [] Abdominal pain [] Heartburn [] Blood from rectum [] Colitis [] Gallbladder problems [] Troubl e swallowing [] Bloated stomach [] Change in stools [] Vomiting blood [] Nausea [] Hemorrhoids [] Jaundice [ ] Hepatitis [] Diarrhea [] Constipation [] Diverticulitis Musculoskeletal: [] Physical handicaps [] Back or shoulder pain []Rheumatoid disease [] Osteoarthritis [] Joint pain [] Joint swelling []Gout [] Leg cramps at night Skin: [] Skin rashes [] Itching/Burning [] Skin bruises easil y [] Artificial tanning [] Skin cancer [] Hair loss [] Changes in moles Psychiatric: [] Depression [] Suicidal thoughts [] Sleep pattern changes [] Appetite changes [] Recent counseling [] Nervousness/anxiety [] Physical violence [] Marital problems Neurological: [] Headaches [] Seizures [] Stroke/TIA [] Faintness [] Tremors [] Numbness [] Dizziness [] Changes in handwriting [] Memory loss [] Shooting pains Endocrine: [] Thyroid [] Diabetes Systemic: []Weight loss/gain (over 10 lbs) []Fever/chills []Fatigue [] Sleeping Difficulties [] Speech change [] Voice change Admission Weight: Weight: 101.6 kg (224 lb) BMI: Body mass index is 34.06 kg/m. Physical Examination: Ht 1.727 m (5' 8") | Wt 101.6 kg (224 lb) | BMI 34.06 kg/m General: Alert, oriented, no acute distress HEENT: Normocephalic, atraumatic Cardiovascular: Regular rate and rhythm Respiratory: Breathing normally at a regular rate Ortho Exam Right Shoulder Exam Right Left Forward Flexion 120 150 Abduction 90 120 External Rotation 40 40 Internal rotation Belt T12 Tender to Palpation: subacromial joint External Rotation Strength 3/5 Internal Rotation Strength 5/5 Hawkin's Positive Neer's Positive Maribel's can't test (patient guarding against position) Skin: intact Radial pulse 2+. Sensation intact to light touch in the first dorsal webspace, and the pads of the small and index fingers. Able to flex and extend the thumb at the interphalangeal meri int, make an "ok" sign, adduct and abduct the fingers, and oppose the thumb to the small fin leana. Diagnostic Studies: Imaging Axillary lateral of the right shoulder obtained today and previous right shoulder films rev iewed. These other views from September 2017 include an AP, the Gillespie, and a scapular Y. The patient has no significant humeral osteoarthrosis. There is some acromioclavicular joint os teoarthrosis. MRI of the right shoulder dated February 17, 2018 reviewed. The patient does have a partia l-thickness rotator cuff tear (supraspinatus) with some tendinosis. There is some acromiocl avicular joint osteoarthrosis. Labs- Lab Results Component Value Date NA 140 11/17/2017 K 4.1 12/10/2017 CL 104 11/17/2017 CO2 26 11/17/2017 ANIONGAP 10 11/17/2017 GLU 105 11/17/2017 BUN 5 (L) 11/17/2017 CREA 0.72 11/17/2017 GFRNONAA >60 11/17/2017 CALCIUM 9.1 11/17/2017 ALBUMIN 4.1 11/17/2017 BILITOT 0.5 11/17/2017 TOTALPROTEIN 6.9 11/17/2017 AST 47 (H) 11/17/2017 ALT 34 11/17/2017 ALKPHOS 91 11/17/2017 WBC 6.5 11/17/2017 HGB 15.1 11/17/2017 HCT 44.0 11/17/2017 MCV 96.1 11/17/2017 PLT 189 11/17/2017 ESR 10 11/17/2017 CRP 0.48 05/04/2017 Assessment and Plan: 1. Acute pain of right shoulder * [facility] Physical Therapy - AMB Referral triamcinolone acetonide (KENALOG-40) 40 mg/mL injection 40 mg 2. Tear of right supraspinatus tendon, initial encounter * [facility] Physical Therapy - AMB Refe rral triamcinolone acetonide (KENALOG-40) 40 mg/mL injection 40 mg The patient is a pleasant 58 y.o. female who presents with a right partial thickness supras pinatus tear. Treatment options were discussed with the patient including non-operative celeste tment modalities. Considering the nature of the patient's condition, decision was made to pr oceed with physical therapy and a subacromial injection. She [facility] and states that she has a hard time sleeping at night. The injection should help with h er pain. It should also allow her to do physical therapy. This is not an acute injury and a course of nonoperative management is indicated prior to consideration of surgical interven tion. Of note, she presented to [facility] today. I asked her to stay out of the sling and work on motion. I am worried that she will begin to develop a frozen shoulder if she continues to not use her shoulder. Follow-up: Return in about 2 months (around 04/25/2018). with no x-ray Portions of this report were transcribed using voice recognition software. Every effort wa s made to ensure accuracy; however, inadvertent computerized customer experience analyst errors may be pre sent. I appreciate the opportunity to help with the management of this patient. Lc Vail MDin this encounter Plan of Treatment +--------+---------+ + + + | Date | Type | Specialty | Care Team | Description | +--------+---------+ + + + | 03/16/ | Office | Internal Medicine | Alanis, | | | 2017 | Visit | | MD Petrona | | | | | | [address] | | | | | | [place] [address] | | | | | | [phone] | | | | | | | | +--------+---------+ + + + | 04/26/ | Office | Orthopedic Surgery | Alanis, | | 2017 | Visit | | MD Petrona | | | | | | [address] | | | | | | [place] [address] | | | | | | [phone] | | | | | | | | | | | | Lc Vail MD | | | | | | [address] [facility] | | | | | | [place] | | | | | | [address] | | | | | | [phone] | | | | | | | | +--------+---------+ + + + + +--------+ + + | Name | Priori | Associated Diagnoses | Order Schedule | | | ty | | | + +--------+ + + | * [facility] Physical Therapy - AMB | Routin | Acute pain of | Ordered: 02/23/2018 | | Referral | e | right shoulder Tear | | | | | of right | | | | | supraspinatus | | | | | tendon, initial | | | | | encounter | | + +--------+ + + as of this encounter Visit Diagnoses + + | Diagnosis | + + | Acute pain of right shoulder | + + | Tear of right supraspinatus tendon, initial encounter | + + Administered Medications + +--------+ +-------+------+ + | Medication Order | MAR | Action | Dose | Rate | Site | | | Action | Date | | | | + +--------+ +-------+------+ + | triamcinolone acetonide | Given | | 40 mg | | Shoulder | | (KENALOG-40) 40 mg/mL injection | | 8 13:26 | | | -Right | | 40 mg 40 mg, Intra-articular, | | PDT | | | | | ONCE, 02/23/18 at 1400, For 1 | | | | | | | dose, Shake well. Not for IV use. | | | | | | + +--------+ +-------+------+ + +---+---+ | | | +---+---+ in this encounter
--- OUTSIDE RECORDS SUMMARY | ~2018-03-05 | XMS | Encounter Summary ---
Demographics + + + | Address | [address] | | | [place] [address] | + + + | Home Phone | | + + + | Preferred Language | Unknown | + + + | Marital Status | | + + + | Rastafarian Affiliation | 1001 | + + + | Race | Unknown | + + + | Ethnic Group | Unknown | + + + Author + + + | Author | [facility] | | | and Jairana | + + + | Organization | [facility] | | | [...] Team Providers + +------+ + | Care Belt Sander Name | Role | Phone | [...] + + + + + + | Pending | Specialty | Physical | Diagnoses | | [facility] | | Review | Services | Therapy / | Physical | Emmy-Tajt | [facility] [address] | | | Required | Rehabilitatio | deconditioni | i, | [address] | | | | n | ng Chronic | Sulaiman-Gily | [place], | | | | | bilateral | , MD [address] | [place] [address] | | | | | low back | [address] | Phone: | | | | | pain without | [place], | [phone] | | | | | sciatica | [place] | Fax: | | | | | Primary | [address] | [phone] | | | | | osteoarthrit | Phone: | | | | | | is of both | [phone] | | | | | | knees | Fax: | | | | | | Procedures | [phone] | | | | | | PT | | | + + + + + + + Reason for Visit + + + | Reason | Comments | + + + | Edema | 1 month | + + + | Medication Refill | | + + + | Abdominal Pain | | + + + | Spasms | legs and hips | + + + Encounter Details +--------+---------+ + + + | Date | Type | Department | Care Team | Description | +--------+---------+ + + + | 12/10/ | Office | [facility] | Alanis, | Elevated liver | | 2018 | Visit | MEDICINE [address] | MD Petrona | enzymes (Primary | | | | [address] [place] | [address] [facility] | Dx); Limb cramps; | | | | [place] [address] | [place] [address] | Physical | | | | [phone] | [phone] | deconditioning; | | | | | | Chronic bilateral | | | | | | low back pain | | | | | | without sciatica; | | | | | | Primary | | | | | | osteoarthritis of | | | | | | both knees | +--------+---------+ + + + Social History [...] + + + | Blood Pressure | 104/60 | 12/10/2017915 PDT | + + + + | Pulse | 54 | 12/10/2017915 PDT | + + + + | Temperature | 36.5 C (97.7 F) | 12/10/2017915 PDT | + + + + | Respiratory Rate | 16 | 12/10/2017915 PDT | + + + + | Oxygen Saturation | 95% | 12/10/2017915 PDT | + + + + | Inhaled Oxygen | - | - | | Concentration | | | + + + + | Weight | 101.1 kg (222 lb | 12/10/2017915 PDT | | | 14.2 oz) | | + + + + | Height | - | - | + + + + | Body Mass Index | 33.89 | 12/10/2017915 PDT | + + + + in this encounter Progress Notes Maggie Montoya LPN - 12/10/2017929 PDTFormatting of this note may be different from the o [place]. Administrations This Visit cyanocobalamin (VITAMIN B-12) injection 1,000 mcg Admin Date 12/10/2017 Action Given Dose 1000 mcg Route Intramuscular Administered By Maggie Montoya LPN Vitamin B12 1000mcg given IM Left deltoid. Patient tolerated injection well. Petrona Thapa MD - 12/10/2017929 PDTFormatting of this note may be differe nt from the original. CHIEF COMPLAINT Chief Complaint Patient presents with Edema 1 month Medication Refill Abdominal Pain Spasms legs and hips HPI Belinda Meehan is a 57 y.o. y/o female who presents today for several issues: She had blood work at last visit in the context of lower extremities edema and fatigue. He r labs looked okay except for an elevated liver enzyme. She doesn't remember being tested f or hep C. She status post cholecystectomy a few years ago. No right upper quadrant pain. No jaundice. She complains of cramps in her upper and lower extremities and she would like to have her p otassium and magnesium checked. She also states she has experienced decreased ability to ambulate and recent months. She h as difficulty walking longer distances because of pain in her lower back and in her knees. She is interested in doing physical therapy in [place], pool therapy has helped in the pas t. Needs refill of gabapentin. REVIEW OF SYSTEMS See HPI for further [...] apnea Spondylosis with myelopathy, lumbar region Stroke ([facility]) Syncope Tremor Type II or unspecified [...] SURGERY 2004 HYSTERECTOMY 05/14/1980 JOINT REPLACEMENT Bilateral 2006,2007 KNEE ARTHROSCOPY 2005 LAPAROSCOPY 01/27/2015 LAPAROTOMY 2008 [...] Take 3 capsules by mouth 3 times daily for 30 day s. 270 capsule 3 HYDROcodone-acetaminophen (NORCO) 10-325 mg per [...] (See Comments) Confused and questionable for seizures Ezsqfotgce-Ctuv-Ngcejsdk Cephalexin Hives Duloxetine Migraines and nausea Ketorolac Hives Morphine Swelling Ropinirole Hcl Hives Tramadol Hcl Nausea Only Qqynyfqfql-Qoba-Ytzdapuh Hives and Rash Ciprofloxacin Hives and Rash Clarithromycin Hives and Rash Clindamycin Hcl Hives and Rash Doxycycline Rash Levofloxacin Hives and Rash Penicillins Hives and Rash Sulfamethoxazole-Trimethoprim Hives and Rash PHYSICAL EXAM VITAL SIGNS: BP 104/60 | Pulse 54 | Temp 36.5 C (97.7 F) (Temporal) | Resp 16 | Wt 101.1 kg (222 lb 14.2 oz) | SpO2 95% | BMI 33.89 kg/m Constitutional: Well developed, Well nourished, No acute distress, Pleasant female. Neck: Normal range of motion, No tenderness, Supple. Lymphatic: No lymphadenopathy noted. Cardiovascular: Regular rate & rhythm, No murmurs, No rubs, No gallops. 2+ lower extremitie s edema, chronic. Thorax & Lungs: Normal breath sounds, No respiratory distress, No wheezing, No rubs. Skin: Warm, Dry, No erythema, No rash. Musculoskeletal: Decreased range of motion in larger joints of her limbs and in her lower b ack. No joint swelling or redness. Neurologic: Alert & oriented x 3. Psychiatric: Affect normal, Judgment normal, Mood normal. ASSESSMENT & PLAN 1. Elevated liver enzymes - Hepatitis C Ab; Future - US Abdomen Limited; Future 2. Limb cramps - Magnesium; Future - Potassium; Future 3. Physical deconditioning - Physical Therapy - Ambulatory Referral; Future 4. Chronic bilateral low back pain without sciatica - Physical Therapy - Ambulatory Referral; Future - gabapentin (NEURONTIN) 300 mg capsule; Take 3 capsules by mouth 3 times daily for 30 days . Dispense: 270 capsule; Refill: 3 5. Primary osteoarthritis of both knees - Physical Therapy - Ambulatory Referral; Future FOLLOW-UP No Follow-up on file. Note: Parts of this documentwere created using Proper[employer] speech recognition software. As a r esult, there may be unintended word spelling errors. Every attempt was made to correct the dictation. in this encounter Plan of Treatment +--------+---------+ + + + | Date | Type | Specialty | Care Team | Description | +--------+---------+ + + + | 03/16/ | Office | Internal Medicine | Alanis, | | | 2017 | Visit | | MD Petrona | | | | | | [facility] [address] [facility] | | | | | | [place] [address] | | | | | | [phone] | | | | | | | | +--------+---------+ + + + | 04/26/ | Office | Orthopedic Surgery | Alanis, | | | 2017 | Visit | | MD Petrona | | | | | | [address] [facility] | | | | | | [place] [address] | | | | | | [phone] | | | | | | | | | | | | Lc Vail MD | | | | | | [address] [place] | | | | | | [place] | | | | | | [address] | | | | | | [phone] | | | | | | | | +--------+---------+ + + + + +--------+ + + | Name | Priori | Associated Diagnoses | Order Schedule | | | ty | | | + +--------+ + + | US Abdomen Limited | Routin | Elevated liver | Expected: | | | e | enzymes | 12/10/2017, Expires: | | | | | 12/10/2018 | + +--------+ + + + +--------+ + + | Name | Priori | Associated Diagnoses | Order Schedule | | | ty | | | + +--------+ + + | Physical Therapy - Ambulatory | Routin | Physical | Expected: | | Referral | e | deconditioning | 12/10/2017, Expires: | | | | Chronic bilateral | 12/10/2018 | | | | low back pain | | | | | without sciatica | | | | | Primary | | | | | osteoarthritis of | | | | | both knees | | + +--------+ + + as of this encounter Procedures + +--------+ + + + | Procedure Name | Priori | Date/Time | Associated Diagnosis | Comments | | | ty | | | | + +--------+ + + + | IMAGING REPORT - | | 12/28/2017 | | Results for this | | EXTERNAL SCAN | | 0000 PDT | | procedure are in the | | | | | | results section. | + +--------+ + + + in this encounter Results IMAGING REPORT - EXTERNAL SCAN (12/28/2017) + + + | Narrative | Performed At | + + + | Ordered by an | | | unspecified provider. | | + + + Potassium (12/10/2017 1030) + +-------+ + + | Component | Value | Ref Range | Performed At | + +-------+ + + | K | 4.1 | 3.5 - 5.1 mmol/L | [facility] | | | | | [facility] | | | | | CENTER - | | | | | LABORATORY | + +-------+ + + + + | Specimen | + + | Blood | + + + + + + + | Performing | Address | City/State/Zipcode | Phone Number | | Organization | | | | + + + + + | [facility] | [address] | [place] | [phone] | | [facility] | | [address] | | | - LABORATORY | | | | + + + + + | [facility] | [address] | [place] | | | [facility] | | [address] | | | - LABORATORY | | | | + + + + + Magnesium (12/10/2017 1030) + +-------+ + + | Component | Value | Ref Range | Performed At | + +-------+ + + | MG | 2.4 | 1.8 - 2.5 mg/dL | [facility] | | | | | [facility] | | | | | CENTER - | | | | | LABORATORY | + +-------+ + + + + | Specimen | + + | Blood | + + + + + + + | Performing | Address | City/State/Zipcode | Phone Number | | Organization | | | | + + + + + | [facility] | [address] | [place], [place] | [phone] | | [facility] | | [address] | | | - LABORATORY | | | | + + + + + | [facility] | [address] | [place] | | | [facility] | | [address] | | | - LABORATORY | | | | + + + + + Hepatitis C Ab (12/10/2017 1030) + + + + + | Component | Value | Ref Range | Performed At | + + + + + | Hepatitis C Ab | 0.3Comment: | 0.0 - 0.9 s/co ratio | [facility] | | | | | [facility] | | | | | | | | Nega | | | | | tive: < | | | | | 0.8 | | | | | | | | | | | | | | | Indeterminate: 0.8 - | | | | | 0.9 | | | | | | | | | | P | | | | | ositive: > 0.9 | | | | | The [facility] recommends that | | | | | a positive HCV antibody | | | | | result be followed up | | | | | with a HCV Nucleic Acid | | | | | Amplification test | | | | | ([id number]). | | | + + + + + + + | Specimen | + + | Blood | + + + + + | Narrative | Performed At | + + + | Performed at: [address] [facility] [address], | REFERENCE LAB | | [place], [place] [id number] [place]: Bandar Gan MD, | [facility] | | Phone: [phone] | | + + + + + + + + | Performing | Address | City/State/Zipcode | Phone Number | | Organization | | | | + + + + + | REFERENCE LAB | [address] | [place] [address] | [phone] | | [facility] | Drive [facility] | | | + + + + + in this encounter Visit Diagnoses + + | Diagnosis | + + | Elevated liver enzymes - Primary | + + | Nonspecific elevation of levels of transaminase or lactic acid dehydrogenase (LDH) | + + | Limb cramps | + + | Cramp of limb | + + | Physical deconditioning | + + | Debility, unspecified | + + | Chronic bilateral low back pain without sciatica | + + | Primary osteoarthritis of both knees | + + | Primary localized osteoarthrosis, lower leg | + + Administered Medications + +--------+ [...] | | | First dose on [facility] 10/15/17 at 1215 | | | [...]
--- OUTSIDE RECORDS SUMMARY | ~2018-03-05 | XMS | Encounter Summary ---
Demographics + + + | Address | [address] | | | [place] [address] | + + + | Home Phone [...] Team Providers + +------+ + | Care Powerhouse Mechanic Apprentice Name | Role | Phone | [...] + + | 02/22/ | Refill | [facility] | Alanis, | Medication Refill | | 2017 | | MEDICINE [address] [place] [address] | MD Petrona | | | | | [facility] | [address] [place] [address] | | | | | [place] [address] | [place] [address] | | | | | [phone] | [phone] | | | | | | | [...] | | | | | [place] [address] | | | | | | [phone] | | | | | | | | +--------+---------+ + + + | 04/26/ | Office | Orthopedic Surgery | Alanis, | | | 2017 | Visit | | MD Petrona | | | | | | [address] [facility] | | | | | | [place] [address] | | | | | | [phone] | | | | | | | | | | | | Lc Vail MD | | | | | | [address] [place] | | | | | | [place] | | | | | | [address] | | | | | | [phone] | | | | | | | | +--------+---------+ + + + as of this encounter Visit Diagnoses Not on filein this encounter"
--- OUTSIDE RECORDS SUMMARY | ~2018-03-05 | XMS | Encounter Summary ---
Demographics + + + | Address | [address] | | | [place] [address] | + + + | Home Phone [...] Team Providers + +------+ + | Care Astrobiologist Name | Role | Phone | + [...] Description | +--------+--------+ + + + | 02/24/ | Refill | [facility] | Alanis, | Medication Refill | | 2017 | | MEDICINE [address] [place] [address] | MD Petrona | | | | | [facility] | [address] [place] [address] | | | | | [place] [address] | [place] [address] | | | | | [phone] | [phone] | | | | | | | [...] | | | | | [place] [address] | | | | | | [phone] | | | | | | | | +--------+---------+ + + + | 04/26/ | Office | Orthopedic Surgery | Alanis, | | | 2017 | Visit | | MD Petrona | | | | | | [address] [facility] | | | | | | [place] [address] | | | | | | [phone] | | | | | | | | | | | | Lc Vail MD | | | | | | [address] [place] | | | | | | [place] | | | | | | [address] | | | | | | [phone] | | | | | | | | +--------+---------+ + + + as of this encounter Visit Diagnoses Not on filein this encounter"
--- OUTSIDE RECORDS SUMMARY | ~2018-03-05 | XMS | Encounter Summary ---
Demographics + + + | Address | [address] | | | [place] [address] | + + + | Home Phone [...] Providers + +------+ + | Care Product Marketing Executive Name | Role | Phone [...] + + | 03/05/ | Telephone | [facility] | Alanis, | Vomiting | | 2018 | | MEDICINE [address] [place] [address] | MD Petrona | | | | | [facility] | [address] [place] [address] | | | | | [place] [address] | [place] [address] | | | | | [phone] | [phone] | | | | | | | [...] | | | | | [place] [address] | | | | | | [phone] | | | | | | | | +--------+---------+ + + + | 04/26/ | Office | Orthopedic Surgery | Emmy-Tajti, | | | 2018 | Visit | | MD Petrona | | | | | | [address] | | | | | | [place] [address] | | | | | | [phone] | | | | | | | | | | | | Lc Vail MD | | | | | | [address] [place] | | | | | | [place] | | | | | | [address] | | | | | | [phone] | | | | | | | | +--------+---------+ + + + as of this encounter Visit Diagnoses Not on filein this encounter"
--- OUTSIDE RECORDS SUMMARY | ~2018-03-05 | XMS | Encounter Summary ---
Demographics + + + | Address | [address] | | | [place] [address] | + + + | Home Phone [...] Providers + +------+ + | Care Oil Refinery Process Technician Name | Role | Phone | [...] + + | 02/18/ | Telephone | [facility] | Alanis, | Results | | 2018 | | MEDICINE [address] [place] [address] | MD Petrona | | | | | [facility] | [address] [place] [address] | | | | | [place] [address] | [place] [address] | | | | | [phone] | [phone] | | | | | | | [...] | | | | | [address] | | | | | | [place] [address] | | | | | | [phone] | | | | | | | | +--------+---------+ + + + | 04/26/ | Office | Orthopedic Surgery | Alanis, | | | 2018 | Visit | | MD Petrona | | | | | | [address] | | | | | | [place] [address] | | | | | | [phone] | | | | | | | | | | | | Lc Vail MD | | | | | | [address] [place] | | | | | | [place] | | | | | | [address] | | | | | | [phone] | | | | | | | | +--------+---------+ + + + as of this encounter Visit Diagnoses Not on filein this encounter"
--- OUTSIDE RECORDS SUMMARY | ~2018-03-05 | XMS | Encounter Summary ---
Demographics + + + | Address | [address] | | | [place] [address] | + + + | Home Phone | | + + + | Preferred Language | Unknown | + + + | Marital Status | | + + + | Hindu Affiliation | 1001 | + + + [...] Providers + +------+ + | Care Aircraft Delivery Checker Name | Role | Phone | [...] + + | 03/05/ | Telephone | [facility] | Alanis, | Vomiting | | 2018 | | MEDICINE [address] [place] [address] | MD Petrona | | | | | [facility] | [address] [place] [address] | | | | | [place] [address] | [place] [address] | | | | | [phone] | [phone] | | | | | | | [...] | | | | | [place] [address] | | | | | | [phone] | | | | | | | | +--------+---------+ + + + | 04/26/ | Office | Orthopedic Surgery | Emmy-Tajti, | | | 2018 | Visit | | MD Petrona | | | | | | [address] | | | | | | [place] [address] | | | | | | [phone] | | | | | | | | | | | | Lc Vail MD | | | | | | [address] [place] | | | | | | [place] | | | | | | [address] | | | | | | [phone] | | | | | | | | +--------+---------+ + + + as of this encounter Visit Diagnoses Not on filein this encounter"
--- OUTSIDE RECORDS SUMMARY | ~2018-03-05 | XMS | Encounter Summary ---
Demographics + + + | Address | [address] | | | [place] [address] | + + + | Home Phone [...] + + | Author | [facility] | | | and Jairana | + + + | Organization | [facility] | | | [...] Team Providers + +------+ + | Care Precision Assembly Inspector Name | Role | Phone | [...] Services | Surgery | Acute pain | Emmy-Cristin | Ruben Leonardo MD | | | Required | | of right | i, | [address] | | | | | shoulder | Sulaiman-Gily | [address] [place] | | | | | Tear of | MD [address] | [place], [place] | | | | | right | [address] | [address] Phone: | | | | | supraspinatu | [place], | [phone] | | | | | s tendon, | [place] | Fax: | | | | | initial | [address] | [phone] | | | | | encounter | Phone: | | | | | | | [phone] | | | | | | | Fax: | | | | | | | [phone] | | +--------+ + + + + + Diagnostic/Screening (Routine) +--------+--------+ + + + + | Status | Reason | Specialty | Diagnoses / | Referred By | Referred To | | | | | Procedures | Contact | Contact | +--------+--------+ + + + + | Closed | | Radiology | Diagnoses | | [facility] | | | | | Acute pain | Emmy-Tajt | [address] | | | | | of right | i, | [place], | | | | | shoulder | [place] | [place] | | | | | Procedures | , MD [address] | [address] | | | | | MRI Shoulder | [address] | Phone: | | | | | Right wo | [place], | [phone] | | | | | Contrast | [place] | Fax: | | | | | | [address] | [phone] | | | | | | Phone: | | | | | | | [phone] | | | | | | | Fax: | | | | | | | [phone] | | +--------+--------+ + + + + Reason for Visit + + + | Reason | Comments | + + + | Follow-up | 3 month | + + + | Lab Results | | + + + | Injections | Vitamin B12 | + + + | Shoulder Pain | Right shoulder blade. barely able to lift arm with out pain. 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 | + + + Encounter Details +--------+---------+ + + + | Date | Type | Department | Care Team | Description | +--------+---------+ + + + | 01/15/ | Office | [facility] | Alanis, | Acute pain of right | | 2017 | Visit | MEDICINE [address] | MD [place] | shoulder (Primary | | | | [address] [place] | [address] [facility] | Dx); Chronic | | | | [place] [address] | [place] [address] | diarrhea; Fatty | | | | [phone] | [phone] | liver; S/P bariatric | | | | | | surgery; Chronic | | | | | | bilateral low back | | | | | | pain without | | | | | | sciatica; Tear of | | | | | | right supraspinatus | | | | | | tendon, initial | | | | | | encounter | +--------+---------+ + + + Social History [...] + + + | Blood Pressure | 110/60 | 01/15/20181055 PDT | + + + + | Pulse | 59 | 01/15/20181055 PDT | + + + + | Temperature | 36.5 C (97.7 F) | 01/15/20181055 PDT | + + + + | Respiratory Rate | 16 | 01/15/20181055 PDT | + + + + | Oxygen Saturation | 96% | 01/15/20181055 PDT | + + + + | Inhaled Oxygen | - | - | | Concentration | | | + + + + | Weight | 102 kg (224 lb 13.9 | 01/15/20181055 PDT | | | oz) | | + + + + | Height | - | - | + + + + | Body Mass Index | 34.19 | 01/15/2018 1056 PDT | + + + + in this encounter Progress Notes Maggie Montoya LPN - 01/15/2018 1045 PDT Vitamin B12 1000mcg given IM right yonathanoidIoneviv-[place] Whitlock MD - 01/15/2018 1045 PDTFormatting of this note may be different from the original. CHIEF COMPLAINT Chief Complaint Patient presents with Follow-up 3 month Lab Results Injections Vitamin B12 Shoulder Pain Right shoulder blade. barely able to lift arm with out pain. 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 y/o female who presents today for several issues: She has been complaining of right shoulder pain for last several weeks and has gotten worse , has trouble lifting her right upper extremity especially above horizontal. No trauma or f all at the onset of symptoms. Has an x-ray of the shoulder a few weeks ago which showed onl y minimal before meals joint arthritis. Has chronic diarrhea, uses Lomotil and occasional Imodium, needs a refill of Lomotil. Had an upper and lower endoscopy recently showing only mild inflammation in her systolic, with a tumor adenomatous polyp that was removed from her colon. Had an ultrasound showing fatty liver recently. She has gained close to 20 pounds in recen t months. Has chronic back pain related to degenerative disc disease and arthritis. Takes gabapentin . Needs a refill. No chest pain shortness of breath or palpitations. REVIEW OF SYSTEMS See HPI for further [...] Procedure: COLONOSCOPY; Surgeon: Luther Brito MD; Location: [facility] MEDICAL PROCEDURE UNIT DILATION AND CURETTAGE OF UTERUS ELBOW SURGERY FINGER TRIGGER RELEASE 2002 FINGER TRIGGER RELEASE 2010 GASTRIC BYPASS SURGERY 2004 HYSTERECTOMY 05/14/1980 JOINT REPLACEMENT Bilateral 2007,2008 KNEE ARTHROSCOPY 2005 LAPAROSCOPY 01/27/2015 LAPAROTOMY 2008 ROTATOR CUFF REPAIR 2005 SPINE SURGERY TONSILLECTOMY 1964 UPPER GASTROINTESTINAL ENDOSCOPY N/A 12/18/2017 Procedure: EGD; Surgeon: Luther Brito MD; Location: [facility] MEDICAL PROCEDURE UNIT CURRENT MEDICATIONS [...] 6 h ours as needed for Pain. ketoconazole (NIZORAL) 2% cream Apply topically 2 times daily for 14 days. 15 g 1 levothyroxine (SYNTHROID) 75 MCG tablet Take 1 [...] Cla Maddie Thapa MD 1,000 mcg at 12/10/17 1040 ALLERGIES Allergies Allergen Reactions Codeine Sulfate Nausea Only Levofloxacin Hives, Itching and Rash Amitriptyline Hcl Other (See Comments) Confused and questionable for seizures Uqkduksxzi-Zusk-Idhbwetc Hives and Rash Cephalexin Hives Ciprofloxacin Hives and Rash Clarithromycin Hives and Rash Clindamycin Hcl Hives and Rash Doxycycline Rash Duloxetine Other (See Comments) Migraines and nausea Ketorolac Hives Levofloxacin Hives and Rash Morphine Swelling Penicillins Hives and Rash Ropinirole Hcl Hives Sulfamethoxazole-Trimethoprim Hives and Rash Tramadol Hcl Nausea Only PHYSICAL EXAM VITAL SIGNS: BP 110/60 | Pulse 59 | Temp 36.5 C (97.7 F) (Temporal) | Resp 16 | Wt 102 kg (224 lb 13.9 oz) | SpO2 96% | BMI 34.19 kg/m Constitutional: Well developed, Well nourished, No [...] No rubs. Abdomen: Bowel sounds normal, Soft, No tenderness, No masses, No HSM, no masses. Skin: Warm, Dry, No erythema, No rash. Musculoskeletal: Good range of motion in all major joints. No tenderness to palpation or ma amanda deformities noted. Neurologic: Alert & oriented x 3, Normal motor function, Normal sensory function, No focal deficits noted. CN II-XII intact. Psychiatric: Affect normal, Judgment normal, Mood normal. ASSESSMENT & PLAN 1. Acute pain of right shoulder - MRI Shoulder Right wo Contrast; Future 2. Chronic diarrhea - diphenoxylate-atropine (LOMOTIL) 2.5-0.025 mg per tablet; Take 1 tablet by mouth 4 times daily as needed for Diarrhea. Dispense: 120 tablet; Refill: 5 3. Fatty liver - Advised to reduce caloric intake by working on portion sizes to introduce a weight loss o f 10-15 pounds in the next 3 months. 4. S/P bariatric surgery with chronic diarrhea - diphenoxylate-atropine (LOMOTIL) 2.5-0.025 mg per tablet; Take 1 tablet by mouth 4 times daily as needed for Diarrhea. Dispense: 120 tablet; Refill: 5 5. Chronic bilateral low back pain without sciatica - gabapentin (NEURONTIN) 300 mg capsule; Take 3 capsules by mouth 3 times daily. Dispense: 270 capsule; Refill: 3 FOLLOW-UP No Follow-up on file. Note: Parts of this documentwere created using ClearFlow speech recognition software. As a r esult, [...] | | | | | [place] [address] | | | | | | [phone] | | | | | | | | +--------+---------+ + + + | 04/26/ | Office | Orthopedic Surgery | Alanis, | | | 2017 | Visit | | MD [place] | | | | | | [address] | | | | | | [place] [address] | | | | | | [phone] | | | | | | | | | | | | Lc Vail MD | | | | | | [address] | | | | | | [place] | | | | | | [address] | | | | | | [phone] | | | | | | | | +--------+---------+ + + + + +--------+ + + | Name | Priori | Associated Diagnoses | Order Schedule | | | ty | | | + +--------+ + + | * [facility] Orthopedic Surgery - | Routin | Acute pain of | Expected: | | AMB Referral | e | right shoulder Tear | 02/18/2018, Expires: | | | | of right | 02/18/2019 | | | | supraspinatus | | | | | tendon, initial | | | | | encounter | | + +--------+ + + as of this encounter Results MRI Shoulder Right wo Contrast (02/17/2018 1055) + + + | Narrative | Performed At | + + + | TECHNIQUE: MRI of the right shoulder with sequences to include | [facility] | | coronal proton density, axial proton density, sagittal proton | | | density, coronal T2. CLINICAL INFORMATION: R shoulder pain x 4 | | | months, inability to adbuct above horizontal, no trauma | | | COMPARISON: Radiographs dated 09/22/2017 FINDINGS: Rotator cuff: | | | There is moderate edema and thickening within the lateral aspect of | | | the supraspinatus tendon. Mild thickening at the lateral aspect of | | | the infraspinatus tendon. There is a small intrasubstance | | | insertional tear at the lateral aspect of the supraspinatus tendon | | | measuring 3 mm. Articular sided supraspinatus tendon tear, | | | approximately 75% thickness, measuring 8 mm in the anterior posterior | | | dimension and 8 mm in the transverse dimension. Mild edema and | | | thickening at the lateral aspect of the subscapularis tendon without | | | definite tear. The teres minor tendon appears intact. Mild | | | intermediate T2 signal intensity noted within the long head biceps | | | tendon without definite tendon tear. Labrum: There is a tear at | | | the posterior superior labrum with small paralabral cyst, 10 to 11:00 | | | position. No other definite labral tear. Bone and joint: | | | Subcortical cystic change at the anterior aspect of the humeral head | | | with focal cortical irregularity. The glenohumeral chondral | | | surfaces appear to be preserved. Type II acromion is seen with | | | mild degeneration of the acromioclavicular joint with small inferior | | | bony spurring at the distal clavicle. Neurovascular | | | structures:The neurovascular structures have normal course and signal | | | through the shoulder girdle. Other findings: No soft tissue mass | | | or abnormal fluid collection. IMPRESSIONS: Lateral articular | | | sided supraspinatus tendon tear, approximately 75% thickness and | | | measuring up to 8 mm. Additional small intrasubstance insertional | | | tear of the supraspinatus tendon. Associated moderate tendinosis. | | | Mild infraspinatus, subscapularis, and long head biceps | | | tendinosis. Small posterior/superior labral tear. Chronic | | | subcortical cystic changes at the anterior humeral head. Mild AC | | | joint hypertrophy with small inferior bony spurring at the distal | | | clavicle. Dictated and Signed by: Romeo John MD | | | Electronically signed: 02/17/2018 2:43 PM | | + + + + + | Procedure Note | + + | Tawanda, Rad Results In - 02/17/2018 1447 PDT | | TECHNIQUE: MRI of the right shoulder with sequences to include coronal proton | | density, axial proton density, sagittal proton density, coronal T2. | | | | CLINICAL INFORMATION: R shoulder pain x 4 months, inability to adbuct above | | horizontal, no trauma | | | | COMPARISON: Radiographs dated 09/22/2017 | | | | FINDINGS: | | Rotator cuff: There is moderate edema and thickening within the lateral aspect | | of the supraspinatus tendon. Mild thickening at the lateral aspect of the | | infraspinatus tendon. There is a small intrasubstance insertional tear at the | | lateral aspect of the supraspinatus tendon measuring 3 mm. Articular sided | | supraspinatus tendon tear, approximately 75% thickness, measuring 8 mm in the | | anterior posterior dimension and 8 mm in the transverse dimension. Mild edema | | and thickening at the lateral aspect of the subscapularis tendon without | | definite tear. The teres minor tendon appears intact. Mild intermediate T2 | | signal intensity noted within the long head biceps tendon without definite | | tendon tear. | | | | Labrum: There is a tear at the posterior superior labrum with small paralabral | | cyst, 10 to 11:00 position. No other definite labral tear. | | | | Bone and joint: Subcortical cystic change at the anterior aspect of the humeral | | head with focal cortical irregularity. The glenohumeral chondral surfaces | | appear to be preserved. Type II acromion is seen with mild degeneration of the | | acromioclavicular joint with small inferior bony spurring at the distal | | clavicle. | | | | Neurovascular structures:The neurovascular structures have normal course and | | signal through the shoulder girdle. | | | | Other findings: No soft tissue mass or abnormal fluid collection. | | | | | | IMPRESSIONS: | | Lateral articular sided supraspinatus tendon tear, approximately 75% thickness | | and measuring up to 8 mm. Additional small intrasubstance insertional tear of | | the supraspinatus tendon. Associated moderate tendinosis. | | | | Mild infraspinatus, subscapularis, and long head biceps tendinosis. | | | | Small posterior/superior labral tear. | | | | Chronic subcortical cystic changes at the anterior humeral head. | | | | Mild AC joint hypertrophy with small inferior bony spurring at the distal | | clavicle. | | | | Dictated and Signed by: Romeo John MD | | Electronically signed: 02/17/2018 2:43 PM | + + + +---------+ + + | Performing | Address | City/State/Zipcode | Phone Number | | Organization | | | | + +---------+ + + | [facility] | | | | + +---------+ + + in this encounter Visit Diagnoses + + | Diagnosis | + + | Acute pain of right shoulder - Primary | + + | Chronic diarrhea | + + | Diarrhea | + + | Fatty liver | + + | Other chronic nonalcoholic liver disease | + + | S/P bariatric surgery | + + | Bariatric surgery status | + + | Chronic bilateral low back pain without sciatica | + + | Tear of right supraspinatus tendon, initial encounter | + +"
--- OUTSIDE RECORDS SUMMARY | ~2018-03-05 | XMS | Encounter Summary ---
Demographics + + + | Address | [address] | | | [place] [address] | + + + | Home Phone [...] Team Providers + +------+ + | Care News Assistant Name | Role | Phone | + +------+ + | [place] Thapa | PCP | | | MD | | | + +------+ + Encounter Details +--------+ + + + + | Date | Type | Department | Care Team | Description | +--------+ + + + + | 02/22/ | Orders Only | [facility] | Lc Vail, | Right shoulder pain, | | 2017 | | ORTHOPEDIC SURGERY | MD Acosta [facility] | unspecified | | | | [address] [place] [address] | [place] | chronicity (Primary | | | | [place] | [address] | Dx) | | | | [address] | [phone] | | | | | [phone] | | | +--------+ + + + [...] | | | | | [place] [address] | | | | | | [phone] | | | | | | | | +--------+---------+ + + + | 04/26/ | Office | Orthopedic Surgery | Alanis, | | | 2017 | Visit | | MD [place] | | | | | | [address] | | | | | | [place] [address] | | | | | | [phone] | | | | | | | | | | | | Lc Vail MD | | | | | | [address] [place] [address] | | | | | | [place], [place] | | | | | | [address] | | | | | | [phone] | | | | | | | | +--------+---------+ + + + as of this encounter Results XR Shoulder Right 1 Vw (02/23/2018 1304) + + + | Narrative | Performed [...] + | Ollie Neff Results In - 02/23/2018 1418 PDT XR SHOULDER RIGHT 1 VW 02/23/2018 1:04 PM | | | | HISTORY: SHOULDER PAIN. | | | | COMPARISON: Multiple priors. | | | | FINDINGS: | | Axillary view of the right shoulder shows no acute findings. Degenerative cysts | | are in the humeral head. There are mild degenerative changes of the AC joint. | | The glenohumeral joint is intact. Bone mineralization is normal. Soft tissues | | are unremarkable. | | | | IMPRESSION - | | Degenerative changes as described above. | | | | Dictated and Signed by: Sarath Avila MD [...] + | Right shoulder pain, unspecified chronicity - Primary | + +"
--- OUTSIDE RECORDS SUMMARY | ~2018-03-05 | XMS | Encounter Summary ---
Demographics + + + | Address | [address] | | | [place] [address] | + + + | Home Phone [...] + +------+ + | Care Director Of Health Education Name | Role | Phone | + [...] | [facility] | Alanis, | Lab Results | | 2017 | | MEDICINE [address] [place] [address] | MD [place] | | | | | [facility] | [address] [place] [address] | | | | | [place] [address] | [place] [address] | | | | | [phone] | | | | | | | [...] | | | | | [place] [address] | | | | | | [phone] | | | | | | | | +--------+---------+ + + + | 04/26/ | Office | Orthopedic Surgery | Emmy-Kamlesh, | | | 2017 | Visit | | MD [place] | | | | | | [address] | | | | | | [place] [address] | | | | | | [phone] | | | | | | | | | | | | Lc Vail MD | | | | | | [address] | | | | | | [place] | | | | | | [address] | | | | | | [phone] | | | | | | | | +--------+---------+ + + + as of this encounter Visit Diagnoses Not on filein this encounter"
--- OUTSIDE RECORDS SUMMARY | ~2018-03-05 | XMS | Encounter Summary ---
Demographics + + + | Address | [address] | | | [place] [address] | + + + | Home Phone | | + + + | Preferred Language | Unknown | + + + | Marital Status | | + + + | Orthodoxy Affiliation | 1001 | + + + [...] Team Providers + +------+ + | Care Claim Inspector Name | Role | Phone | [...] Description | +--------+--------+ + + + | 01/20/ | Refill | [facility] | Alanis, | Medication Refill | | 2017 | | MEDICINE [address] [place] [address] | MD [place] | | | | | [facility] | [address] [place] [address] | | | | | [place] [address] | [place] [address] | | | | | [phone] | [phone] | | | | | | | [...] | | | | | [place] [address] | | | | | | [phone] | | | | | | | | +--------+---------+ + + + | 04/26/ | Office | Orthopedic Surgery | Alanis, | | | 2017 | Visit | | MD [place] | | | | | | [address] [facility] | | | | | | [place] [address] | | | | | | [phone] | | | | | | | | | | | | Lc Vail MD | | | | | | [address] [place] | | | | | | [place] | | | | | | [address] | | | | | | [phone] | | | | | | | | +--------+---------+ + + + as of this encounter Visit Diagnoses Not on filein this encounter"
--- OUTSIDE RECORDS SUMMARY | ~2018-03-05 | XMS | Encounter Summary ---
Demographics + + + | Address | [address] | | | [place] [address] | + + + | Home Phone | | + + + | Preferred Language | Unknown | + + + | Marital Status | | + + + | Latter-Day Affiliation | 1001 | + + + | Race | Unknown | + + + | Ethnic Group | Unknown | + + + Author + + + | Author | [facility] | | | and Jairana | + + + | Organization | [facility] | | | and [...] Providers + +------+ + | Care Electrical Design Technician Name | Role | Phone | + +------+ + | [place] Thapa | PCP | | | MD | | | + +------+ + Encounter Details +--------+ + + + + | Date | Type | Department | Care Team | Description | +--------+ + + + + | 02/23/ | Hospital | [facility] | Lc [place], | Right shoulder pain, | | 2018 | Encounter | [facility] | MD Acosta [facility] | unspecified | | | | [address] [place] | [place] | chronicity | | | | [place] | [address] | | | | | [address] | [phone] | | | | | [phone] | | | +--------+ + + + [...] + + + as of this encounter Medications at Time of Discharge + + + +---------+ + + | Medication | Sig. | Disp. | Refills | Start | End Date | | | | | | Date | | + + + +---------+ + + | ascorbic acid | Take 500 mg by mouth | | | | | | (VITAMIN C) 500 mg | Daily. | | | | | | tablet | | | | | | + + + +---------+ + + | betaxolol 0.5% | Place 1 drop into | | | | | | ophthalmic | both eyes 2 times | | | | | | suspension | daily. | | | | | + + + +---------+ + + | Calcium Carbonate | TABS: 1 tablet by | | | 02/29/20 | | | (CALTRATE 600 PO) | mouth four times a | | | 12 | | | | day | | | | | + + + +---------+ + + | cholecalciferol | Take 5,000 Units by | | | | | | (VITAMIN D-3) 5000 | mouth Daily. | | | | | | UNITS TABS | | | | | | + + + +---------+ + + | clobetasol | apply topically to | | 0 | 01/01/20 | | | (TEMOVATE) 0.05% | affected area twice | | | 17 | | | cream | a day | | | | | + + + +---------+ + + | | Take 1 tablet by | 120 | 5 | 01/16/20 | | | diphenoxylate-atropi | mouth 4 times daily | tablet | | 18 | | | ne (LOMOTIL) | as needed [...] daily. | capsule | | 18 | | | capsuleIndications: | | | | | | | Chronic bilateral | | | | | | | low back pain | | | | | | | without sciatica | | | | | | + + + +---------+ + + | | Take 1 tablet by | | | | | | HYDROcodone-acetamin | mouth [...] day | tablet | | 17 | | | tabletIndications: | | | | | | | Muscle spasm | | | | | | + + + +---------+ + + | metoprolol | take 1/2 tablet by | 30 | 3 | 02/25/20 | | | tartrate (LOPRESSOR) | mouth twice a day | tablet | | 18 | | | 25 mg tablet | | | | | | + + + +---------+ + + | Multiple | 1 tablet by mouth | | | 02/29/20 | | | Vitamins-Minerals | [...] day | capsule | | 17 | | | capsule | | | | | | + + + +---------+ + + | ondansetron | Take 1 tablet by | 120 | 3 | 10/16/19 | | | (ZOFRAN ODT) 4 mg | mouth every 6 hours. | tablet | | 18 | | | disintegrating | | | | [...] daily | tablet | | 18 | | | tablet | as needed. | | | | | + + + +---------+ + + | topiramate | take 2 tablets by | 228 | 5 | 03/30/20 | | | (TOPAMAX) 50 MG | mouth every 12 hours | tablet | | 17 | | | tablet | for MIGRAINE | | | | | | | PREVENTION | | | | | + + + +---------+ + + | torsemide | take 1 tablet by | 25 | 5 | 12/29/19 | | | (DEMADEX) 5 mg | mouth 5 TIMES A WEEK | tablet | | 18 | | | tablet | | | | | | + + + +---------+ + + | travoprost | 1 drop nightly. | | | | | | (TRAVATAN Z) 0.004% | | | | | | | ophthalmic solution | | | | | | + + + +---------+ + + | UNABLE TO | CPAP Mask | 400 | 5 | 10/16/19 | | | FINDIndications: OLIVER | | each | | 18 | | | (obstructive sleep | | | | | | | apnea) | | | | | | + + + +---------+ + + | zoledronic acid | Inject 5 mg into the | | | | | | (RECLAST) 5 mg/100 [...] | + + + +---------+ + + as of this encounter Plan [...] | | | | | [place] [address] | | | | | | [phone] | | | | | | | | +--------+---------+ + + + | 04/26/ | Office | Orthopedic Surgery | EmmyCarmen, | | | 2017 | Visit | | MD [place] | | | | | | [address] [facility] | | | | | | [place] [address] | | | | | | [phone] | | | | | | | | | | | | Lc Vail MD | | | | | | [address] [place] | | | | | | [place] | | | | | | [address] | | | | | | [phone] | | | | | | | [...] this | | VW | e | 1304 PDT | pain, unspecified | procedure are in the | | | | | chronicity | results section. | + +--------+ + + + in this encounter Results XR Shoulder Right [...] | Tawanda, Rad Results In - 02/23/2018 1418 PDT XR [...] Right shoulder pain, unspecified chronicity | + +"
--- OUTSIDE RECORDS SUMMARY | ~2018-03-05 | XMS | Encounter Summary ---
Demographics + + + | Address | [address] | | | [place] [address] | + + + | Home Phone | | + + + | Preferred Language | Unknown | + + + | Marital Status | | + + + | Zoroastrian Affiliation | 1001 | + + + | Race | Unknown | + + + | Ethnic Group | Unknown | + + + Author + + + | Author | [facility] | | | and Jairana | + + + | Organization | [facility] | | | [...] Team Providers + +------+ + | Care Robotics Application Engineer Name | Role | Phone | [...] + + | 03/02/ | Telephone | [facility] | Alanis, | Results, Imaging | | 2017 | | MEDICINE [address] [place] [address] | MD Petrona | | | | | [facility] | [address] [place] [address] | | | | | [place] [address] | [place] [address] | | | | | [phone] | [phone] | | | | | | | [...] | | | | | | Karla MARQUES | | | | | | [place] [address] | | | | | | [phone] | | | | | | | | +--------+---------+ + + + | 04/26/ | Office | Orthopedic Surgery | Alanis, | | | 2017 | Visit | | MD Petrona | | | | | | [address] | | | | | | [place] [address] | | | | | | [phone] | | | | | | | | | | | | Lc Vail MD | | | | | | [address] [place] | | | | | | [place] | | | | | | [address] | | | | | | [phone] | | | | | | | | +--------+---------+ + + + as of this encounter Visit Diagnoses Not on filein this encounter"
--- OUTSIDE RECORDS SUMMARY | ~2018-03-05 | XMS | Encounter Summary ---
Demographics + + + | Address | [address] | | | [place] [address] | + + + | Home Phone [...] Team Providers + +------+ + | Care Women'S Soccer Coach Name | Role | Phone | [...] + + | 02/04/ | Telephone | [facility] | Alanis, | Other (Kidney pain ) | | 2018 | | MEDICINE [address] | MD Petrona | | | | | [facility] | [address] [place] [address] | | | | | [place] [address] | [place] [address] | | | | | [phone] | [phone] | | | | | | | [...] | | | | | [place] [address] | | | | | | [phone] | | | | | | | | +--------+---------+ + + + | 04/26/ | Office | Orthopedic Surgery | Alanis, | | | 2017 | Visit | | MD Petrona | | | | | | [address] | | | | | | [place] [address] | | | | | | [phone] | | | | | | | | | | | | Lc Vail MD | | | | | | [address] [place] | | | | | | [place] | | | | | | [address] | | | | | | [phone] | | | | | | | | +--------+---------+ + + + as of this encounter Visit Diagnoses Not on filein this encounter"
--- OUTSIDE RECORDS SUMMARY | ~2018-03-05 | XMS | Encounter Summary ---
Demographics + + + | Address | [address] | | | [place] [address] | + + + | Home Phone | | + + + | Preferred Language | Unknown | + + + | Marital Status | | + + + | Samaritan Affiliation | 1001 | + + + | Race | Unknown | + + + | Ethnic Group | Unknown | + + + Author + + + | Author | [facility] | | | and Jairana | + + + | Organization | [facility] | | | [...] Team Providers + +------+ + | Care Cable Installer Name | Role | Phone | + +------+ + | Petrona Thapa | PCP | | | MD | | | + +------+ + Encounter Details +--------+ + + + + | Date | Type | Department | Care Team | Description | +--------+ + + + + | 12/18/ | Procedure | [facility] | | | | 2018 | Pass | [facility] | | | | | | [address] | | | | | | [place] | | | | | | [address] | | | | | | [phone] | | | +--------+ + + + [...] | | | | | [place] [address] | | | | | | [phone] | | | | | | | | +--------+---------+ + + + | 04/26/ | Office | Orthopedic Surgery | Alanis, | | | 2017 | Visit | | MD Petrona | | | | | | [address] | | | | | | [place] [address] | | | | | | [phone] | | | | | | | | | | | | Lc Vail MD | | | | | | [address] | | | | | | [place] | | | | | | [address] | | | | | | [phone] | | | | | | | | +--------+---------+ + + + as of this encounter Visit Diagnoses Not on filein this encounter"
--- OUTSIDE RECORDS SUMMARY | ~2018-03-05 | XMS | Encounter Summary ---
Demographics + + + | Address | [address] | | | [place] [address] | + + + | Home Phone [...] +------+ + | Care Printed Circuit Boards Beveler Name | Role | Phone | + [...] + + | Authorized | Specialty | Physical | Diagnoses | [...] | | | | | laterality | [address] | [address] | | | | | Dysfunction | Phone: | Phone: | | | | | of left | [phone] | [phone] | | | | | eustachian | Fax: | Fax: | | | | | tube | [phone] | [phone] | + + + + + + + Encounter Details [...] [place], | unspecified | | | | [place], [place] | [place] [address] | laterality (Primary | | | | [address] | [phone] | Dx); Dysfunction of | | | | [phone] | | left eustachian tube | +--------+ [...] | | | | | [place] [address] | | | | | | [phone] | | | | | | | | +--------+---------+ + + + | 04/26/ | Office | Orthopedic Surgery | Alanis, | | | 2017 | Visit | | MD Petrona | | | | | | [address] | | | | | | [place] [address] | | | | | | [phone] | | | | | | | | | | | | Lc Vail MD | | | | | | [address] | | | | | | [place], [place] | | | | | | [address] | | | | | | [phone] | | | | | | | | +--------+---------+ + + + + +--------+ + + | Name | Priori | Associated Diagnoses | Order Schedule | | | ty | | | + +--------+ + + | * [facility] [place] [facility] - [facility] | Routin | Benign paroxysmal | Ordered: 01/04/2018 | | Referral | e | positional vertigo, | | | | | unspecified | | | | | laterality | | | | | Dysfunction of left | | | | | eustachian tube | | + +--------+ + + as of this encounter Visit Diagnoses + + | Diagnosis | + + | Benign paroxysmal positional vertigo, unspecified laterality - Primary | + + | Dysfunction of left eustachian tube | + + | Dysfunction of Eustachian tube | + +"
--- OUTSIDE RECORDS SUMMARY | ~2018-03-05 | XMS | Encounter Summary ---
Demographics + + + | Address | [address] | | | [place] [address] | + + + | Home Phone | | + + + | Preferred Language | Unknown | + + + | Marital Status | | + + + | Restorationist Affiliation | 1001 | + + + | Race | Unknown | + + + | Ethnic Group | Unknown | + + + Author + + + | Author | [facility] | | | and Jairana | + + + | Organization | [facility] | | [...] Team Providers + +------+ + | Care Rug Cutter Helper Name | Role | Phone | [...] + + | 03/04/ | Telephone | [facility] | Alanis, | Fever | | 2018 | | MEDICINE [address] [place] [address] | MD Petrona | | | | | [facility] | [address] [place] [address] | | | | | [place] [address] | [place] [address] | | | | | [phone] | [phone] | | | | | | | [...] | | | | | | Karla [address] | | | | | | [place] [address] | | | | | | [phone] | | | | | | | | +--------+---------+ + + + | 04/26/ | Office | Orthopedic Surgery | Alanis, | | | 2018 | Visit | | MD Petrona | | | | | | [address] | | | | | | [place] [address] | | | | | | [phone] | | | | | | | | | | | | Lc Vail MD | | | | | | [address] [place] | | | | | | [place] | | | | | | [address] | | | | | | [phone] | | | | | | | | +--------+---------+ + + + as of this encounter Visit Diagnoses Not on filein this encounter"
--- OUTSIDE RECORDS SUMMARY | ~2018-03-05 | XMS | Encounter Summary ---
Demographics + + + | Address | [address] | | | [place] [address] | + + + | Home Phone [...] Team Providers + +------+ + | Care Beater Operator Name | Role | Phone | [...] | Services | y | Vertigo | Emmy-Cristin | MD Sid [address] | | | Required | | Procedures | i, | [address] | | | | | 11/19 APRIL | Pet[place]a | [address] | | | | | PENDING | MD [address] | [place], | | | | | | [address] | [place] [address] | | | | | | [place], | Phone: | | | | | | [place] | [phone] | | | | | | [address] | Fax: | | | | | | Phone: | [phone] | | | | | | [phone] | | | | | | | Fax: | | | | | | | [phone] | | + + + + + [...] [place], | unspecified | | | | [place], [place] | [place] [address] | laterality (Primary | | | | [address] | [phone] | Dx); Dysfunction of | | | | [phone] | | left eustachian tube | +--------+---------+ [...] | Blood Pressure | 110/64 | 12/30/2017 1414 PDT | + + + + | Pulse | 59 | 12/30/20171413 PDT | + + + + | Temperature | - | - | + + + + | Respiratory Rate | 15 | 12/30/20171413 PDT | + + + + | Oxygen Saturation | 97% | 12/30/20171413 PDT | + + + + | Inhaled Oxygen | - | - | | Concentration | | | + + + + | Weight | 102.1 kg (225 lb) | 12/30/20171413 PDT | + + + + | Height | 172.7 cm (5' 8") | 12/30/2017 1414 PDT | + + + + | Body Mass Index | 34.21 | 12/30/2017 1414 PDT | + + + + in this encounter Progress Notes Ulysses Genao MD - 12/30/2017 1415 PDTPatient comes in because of persistent problems with her balance. She has a chronic back disease and walks with a cane. She notes that she has spinning sensations if she does much turning of her head. She has very significant flight of ideas and that she was hard to narrow down her answers and that most the time was quite v ague. She denies any dizziness when she moves in bed and indicates that most the time she d oes lays on her back. When she first sits up she occasionally feels lightheaded but in disc ussing it at length it would seem that it's not lightheaded bit more the spinning sensation. She was shown how to do Tayler maneuvers in the past and has tried to do it on her own but not having any significant improvement. She's previously had an MRI scan of her head in 201 5 and also of the ENG that showed benign positional vertigo. She also notes that in her lef t ear she has an echo type of [...] cane because of the chronic back problem. Patiandrew jacobsen's tympanograms were normal A shaped tympanograms. The left tympanogram has a negative nichole ft to it. Her speech bookkeeper receptionist threshold is 20 dB in the [...] the difficulty eating able to get clear answers.in this encounter Plan of Treatment +--------+---------+ + + + | Date | Type | Specialty | Care Team | Description | +--------+---------+ + + + | 03/16/ | Office | Internal Medicine | Alanis, | | | 2017 | Visit | | MD Petrona | | | | | | [facility] [address] [place] | | | | | | [place] [address] | | | | | | [phone] | | | | | | | | +--------+---------+ + + + | 04/26/ | Office | Orthopedic Surgery | Emmy-Kamlesh, | | | 2017 | Visit | | MD [place]rona | | | | | | [address] [facility] | | | | | | [place] [address] | | | | | | [phone] | | | | | | | | | | | | Lc Vail MD | | | | | | [address] [place] | | | | | | [place] | | | | | | [address] | | | | | | [phone] | | | | | | | | +--------+---------+ + + + as of this encounter Visit Diagnoses + + | Diagnosis | + + | Benign paroxysmal positional vertigo, unspecified laterality - Primary | + + | Dysfunction of left eustachian tube | + + | Dysfunction of Eustachian tube | + +
--- OUTSIDE RECORDS SUMMARY | ~2018-03-05 | XMS | Encounter Summary ---
Demographics + + + | Address | [address] | | | [place] [address] | + + + | Home Phone [...] Providers + +------+ + | Care Internet And E Business Project Manager Name | Role | Phone [...] + + | 01/14/ | Refill | [facility] | Alanis, | Medication Refill | | 2017 | | MEDICINE [address] [place] [address] | MD Petrona | | | | | [facility] | [address] [place] [address] | | | | | [place] [address] | [place] [address] | | | | | [phone] | [phone] | | | | | | | [...] | | | | | [place] [address] | | | | | | [phone] | | | | | | | | +--------+---------+ + + + | 04/26/ | Office | Orthopedic Surgery | Alanis, | | | 2017 | Visit | | MD Petrona | | | | | | [address] [facility] | | | | | | [place] [address] | | | | | | [phone] | | | | | | | | | | | | Lc Vail MD | | | | | | [address] [place] | | | | | | [place] | | | | | | [address] | | | | | | [phone] | | | | | | | | +--------+---------+ + + + as of this encounter Visit Diagnoses Not on filein this encounter"
--- OUTSIDE RECORDS SUMMARY | ~2018-03-05 | XMS | Encounter Summary ---
Demographics + + + | Address | [address] | | | [place] [address] | + + + | Home Phone [...] Team Providers + +------+ + | Care Doctor Of Nursing Practice Name | Role | Phone | + [...] + | 03/02/ | [facility] | [facility] | Emmy-Tajti, | Neck pain on right | | 2018 | Visit | MEDICINE [address] | MD [place] | side (Primary Dx); | | | | Street [place] | [address] [facility] | Primary stabbing | | | | [place] [address] | [place] [address] | headache; | | | | [phone] | [phone] | Non-intractable | | | | | [...] + | Blood Pressure | 124/70 | 03/02/2018926 PDT | + + + + | Pulse | 56 | 03/02/2018926 PDT | + + + + | Temperature | 36.5 C (97.7 F) | 03/02/2018926 PDT | + + + + | Respiratory Rate | 16 | 03/02/2018926 PDT | + + + + | Oxygen Saturation | 97% | 03/02/2018926 PDT | + + + + | Inhaled Oxygen | - | - | | Concentration | | | + + + + | Weight | 101.2 kg (223 lb 1.7 | 03/02/2018926 PDT | | | oz) | | + + + + | Height | - | - | + + + + | Body Mass Index | 33.92 | 03/02/2018926 PDT | + + + + in this encounter Progress Notes Oksana Florian, Medical Student - 03/02/2018929 PDTFormatting of this note may be dif ferent from the original. [facility] PROGRESS NOTE Pt. Name/Age/: Belinda Meehan 58 y.o. 1960 Med. Record Number: [id number] HPI: Belinda Meehan is a 58 y.o. [...] (chronic obstructive pulmonary disease) ([facility]) Depression Diarrhea Dumping syndrome Fall at home Fatigue fracture of vertebra Fibromyalgia Full dentures GERD (gastroesophageal reflux disease) Glaucoma Hyperparathyroidism ([facility]) Hypothyroidism IBS (irritable bowel syndrome) Idiopathic scoliosis Leg edema Low back pain Lumbar postlaminectomy syndrome Lumbar radiculopathy primarily right 01/04/2015 Meniere syndrome Migraine with aura Migraines Muscle cramping Muscle spasm Myalgia Nonalcoholic hepatosteatosis Obesity Opioid dependence ([facility]) Orthostatic hypotension OLIVER (obstructive sleep apnea) Osteoarthritis, generalized Osteopenia Osteoporosis Peripheral neuropathy Rheumatoid arthritis ([facility]) Right arm pain 01/04/2015 RLS (restless legs syndrome) S/P lumbar fusion 01/04/2015 Scoliosis Sleep apnea Spondylosis with myelopathy, lumbar region Stroke ([facility]) Syncope Tremor Type II or unspecified type diabetes mellitus with other specified manifestations, not stated as uncontrolled 05/04/2017 Vitamin D deficiency Past Surgical History: Procedure Laterality Date ADENOIDECTOMY APPENDECTOMY BREAST LUMPECTOMY Left 2002 CARPAL TUNNEL RELEASE 2002 SECTION CHOLECYSTECTOMY 2004 COLONOSCOPY N/A 12/18/2017 Procedure: COLONOSCOPY; Surgeon: Luther Brito MD; Location: [facility] MEDICAL PROCEDURE UNIT DILATION AND CURETTAGE OF UTERUS ELBOW SURGERY FINGER TRIGGER RELEASE 2002 FINGER TRIGGER RELEASE 2010 GASTRIC BYPASS SURGERY 2004 HYSTERECTOMY 05/14/1980 JOINT REPLACEMENT Bilateral 2007,2008 KNEE ARTHROSCOPY 2005 LAPAROSCOPY 01/27/2015 LAPAROTOMY 2008 ROTATOR CUFF REPAIR 2005 SPINE SURGERY TONSILLECTOMY 1964 UPPER GASTROINTESTINAL ENDOSCOPY N/A 12/18/2017 Procedure: EGD; Surgeon: Luther Brito MD; Location: [facility] MEDICAL PROCEDURE UNIT Allergies Allergen Reactions Levofloxacin Hives,Itching,Rash Qswxueswuo-Zrkf-Ujhvfbbs Hives,Rash Cephalexin Hives Ciprofloxacin Hives,Rash Clarithromycin Hives,Rash [...] attestation - [place] Thapa MD - 03/02/2018 1246 PDTPatient seen personally be me. Note reviewed. in this encounter Plan of Treatment +--------+---------+ + + + | Date | Type | Specialty | Care Team | Description | +--------+---------+ + + + | 03/16/ | Office | Internal Medicine | Alanis, | | | 2017 | Visit | | MD [place] | | | | | | [facility] [address] | | | | | | [place] [address] | | | | | | [phone] | | | | | | | | +--------+---------+ + + + | 04/26/ | Office | Orthopedic Surgery | EmmyAlberot, | | | 2017 | Visit | | MD [place] | | | | | | [address] [facility] | | | | | | [place] [address] | | | | | | [phone] | | | | | | | | | | | | Lc Vail MD | | | | | | [address] [place] | | | | | | [place] | | | | | | [id number] | | | | | | [phone] | | | | | | | | +--------+---------+ + + + as of this encounter Results Comprehensive Metabolic Panel (03/02/2018 1041) + + + + + | Component | Value | Ref Range | Performed At | + + + + + | NA | 140 | 136 - 149 mmol/L | [facility] | [facility] - | | | | | [facility]ORY | + + + + + | K | 4.1 | 3.5 - 5.1 mmol/L | [facility] | [facility] - | | | | | LAB[facility]ATORY | + + + + + | CL | 105 | 98 - 109 mmol/L | [facility] - | | | | | [facility]ORY | + + + + + | CO2 | 27 | 24 - 31 mmol/L | [facility] | [facility] - | | | | | LAB[facility]ATORY | + + + + + | ANION GAP | 8 | 3 - 16 mmol/L | [facility] - | | | | | LAB[facility]ORY | + + + + + | GLUCOSE | 101 | 70 - 109 mg/dL | [facility] | [facility] - | | | | | LAB[facility]ATORY | + + + + + | BUN | 9 | 7 - 18 mg/dL | [facility] | [facility] | | [facility] - | | | | | LAB[facility]ATORY | + + + + + | Creatinine, | 0.83 | 0.60 - 1.30 mg/dL | [facility] | | Serum/Plasma | | | [facility] | | | [facility] - | | | | | LAB[facility]ATORY | + + + + + | eGFR if not | >60Comment: GLOMERULAR | >=60 mL/min/1.73m2 | [facility] | | [facility] | FILTRATION | | [facility] | | | RATE,ESTIMATED mL/min | | CENTER - | | | /1.97s3Yeyf than 60 | | LABORATORY | | | Chronic kidney | | | | | disease,if found over a | | | | | 3-month period.Less than | | | | | 15 Kidney | | | | | failureFor | | | | | Americans,multiply the | | | | | calculated GFR by 1.21. | | | | | | | | + + + + + | CALCIUM | 9.0 | 8.3 - 10.5 mg/dL | [facility] | | [facility] | | [facility] - | | | | | LAB[facility]ATORY | + + + + + | ALBUMIN | 4.4 | 3.2 - 5.0 g/dL | [facility] | | | [facility] | | | | [facility] - | | | | | LABORATORY | + + + + + | Bilirubin Total | 0.7 | 0.1 - 1.5 mg/dL | [facility] | | [facility] | | | | [facility] - | | | | | LAB[facility]ATORY | + + + + + | Total protein | 7.3 | 6.0 - 7.8 g/dL | [facility] | | [facility] | | | | [facility] - | | | | | LABORATORY | + + + + + | AST | 37 | 10 - 42 U/L | [facility] | | | | [facility] - | | | | | LABORATORY | + + + + + | ALT | 37 | 6 - 45 U/L | [facility] | | | | [facility] - | | | | | LABORATORY | + + + + + | ALK PHOS | 99 | 40 - 110 U/L | [facility] | | | [facility] | | | [facility] - | | | | | LABORATORY | + + + + + | GLOBULIN | 2.9 | 2.1 - 3.8 g/dL | [facility] | | | | [facility] | | | | [facility] - | | | | | LABORATORY | + + + + + | Albumin/Globulin | 1.5 | 0.8 - 2.0 | [facility] | | ratio | | | [facility] | | | | [facility] - | | | | | LABORATORY | + + + + + | BUN/CREA | 10.8 | | [facility] | | | | | [facility] | | | | | CENTER - | | | | | LABORATORY | + + + + + + + | Specimen | + + | Blood | + + + + + + + | Performing | Address | City/State/[facility] | Phone Number | | Organization | | | | + + + + + | [facility] | [address] | [place] | [phone] | | [facility] | | [address] | | | - LABORATORY | | | | + + + + + | [facility] | [address] | [place] | | | [facility] | | [id number] | | | - LABORATORY | | | | + + + + + CBC with Differential (03/02/2018 1041) + + + + + | Component | Value | Ref Range | Performed At | + + + + + | WBC | 10.3 | 4.0 - 11.0 K/uL | [facility] | | | | | [facility] | | | | | CENTER - | | | | | LABORATORY | + + + + + | RBC | 4.66 | 3.70 - 5.20 M/uL | [facility] | | | | | [facility] | | | | | CENTER - | | | | | LABORATORY | + + + + + | Hgb | 15.2 | 11.5 - 16.0 g/dL | [facility] | | | | | [facility] | | | | [facility] - | | | | | LAB[facility]ATORY | + + + + + | Hct | 45.3 | 34.0 - 47.0 % | [facility] | | | | | [facility] | | | | [facility] - | | | | | LABORATORY | + + + + + | MCV | 97.2 | 83.0 - 101.0 fL | [facility] | | | | | [facility] | | | | [facility] - | | | | | LABORATORY | + + + + + | MCH | 32.7 | 28.0 - 35.0 pg | [facility] | | | | | [facility] | | | | [facility] - | | | | | LAB[facility]ATORY | + + + + + | MCHC | 33.6 | 32.0 - 36.0 g/dL | [facility] | | | | | [facility] | | | | [facility] - | | | | | LABORATORY | + + + + + | RDW-CV | 12.3 | <15.0 % | [facility] | | | | [facility] | | | [facility] - | | | | | LABORATORY | + + + + + | Platelet Count | 239 | 140 - 440 K/uL | [facility] | | | | [facility] | [facility] - | | | | | LAB[facility]ATORY | + + + + + | MPV | 9.6 | fL | [facility] | | | [facility] - | | | | | LAB[facility]ATORY | + + + + + | % Neutrophils | 71.2 | 45.0 - 82.0 % | [facility] | | | | | [facility] | | | | [facility] - | | | | | LAB[facility]ATORY | + + + + + | % Lymphocytes | 20.0 | 20.0 - 45.0 % | [facility] | | | | | [facility] | | | | [facility] - | | | | | LABORATORY | + + + + + | % Monocytes | 6.6 | 4.0 - 12.0 % | [facility] | | | | | [facility] | | | | [facility] - | | | | | LABORATORY | + + + + + | % Eosinophils | 0.6 | 0.0 - 5.0 % | [facility] | | | | | [facility] | | | | | [facility] - | | | | | LABORATORY | + + + + + | % Basophils | 1.6 (H) | 0.0 - 1.0 % | [facility] | | | | | [facility] | | | | [facility] - | | | | | LABORATORY | + + + + + | Absolute Neutrophils | 7.30 | 1.80 - 8.50 K/uL | [facility] | | | [facility] | | | [facility] - | | | | | LABORATORY | + + + + + | Absolute Lymphocytes | 2.10 | 0.60 - 3.20 K/uL | [facility] | | | | [facility] | | | | [facility] - | | | | | LAB[facility]ATORY | + + + + + | Absolute Monocytes | 0.70 | 0.00 - 1.00 K/uL | [facility] | | | | [facility] | | | | [facility] - | | | | | LAB[facility]ATORY | + + + + + | Absolute Eosinophils | 0.10 | 0.00 - 0.40 K/uL | [facility] | | | | | [facility] | | | | [facility] - | | | | | LABORATORY | + + + + + | Absolute Basophils | 0.20 (H) | 0.00 - 0.10 K/uL | [facility] | | | [facility] | [facility] - | | | | | LAB[facility]ATORY | + + + + + + + | Specimen | + + | Blood | + + + + + + + | Performing | Address | City/[facility] Mex[facility]ode | Phone Number | | Organization | | | | + + + + + | [facility] | [address] | [place], [place] | [phone] | | [facility] | | [address] | | | - LABORATORY | | | | + + + + + | [facility] | [address] | [place], [place] | | | [facility] | | [address] | | | - LABORATORY | | | | + + + + + Sedimentation Rate (03/02/20181040) + +-------+ + + | Component | Value | Ref Range | Performed At | + +-------+ + + | ESR | 4 | <30 mm/hr | [facility] | | | | [facility] - [...] ST[facility] | [address] | [place], [place] | [phone] | | [facility] | | [address] | | | - LABORATORY | | | | + + + + + | [facility] | [address] | [place], [place] | | | [facility] | | [address] | | | - LABORATORY | | | | + + + + + XR Cervical Spine 2 or 3 Views (03/02/2018 1039) + + + | Narrative | Performed [...] | Tawanda, Rad Results In - 03/02/2018 1059 PDT XR CERVICAL SPINE 2 OR 3 VIEWS 03/02/2018 | | 10:39 AMHISTORY: Neck pain.COMPARISON: Multiple priors.FINDINGS:Visualized skull base | | and facial structures demonstrate no acute findings.Prevertebral soft tissues are | | normal.There is minimal retrolisthesis of C2 over C3. Minimal anterolisthesis is notedof | | C4 over C5. Bone mineralization is normal. The dens is normal. Vertebral bodyheight are | | preserved with no evidence for compression fractures. Disc height aremaintained. Facet | | joints are intact. Soft tissue structures are unremarkable.Visualized upper chest | | demonstrates no acute findings. IMPRESSION -Minimal degenerative changes as described | | above.Dictated and Signed by: Sarath Avila MD Electronically signed: 03/02/2018 10:56 AM | | | |There is minimal retrolisthesis of C2 [...] Neck pain on right side - Primary | + + | Cervicalgia | + + | Primary stabbing headache | + + | Non-intractable vomiting with nausea, unspecified vomiting type | + +"
--- OUTSIDE RECORDS SUMMARY | ~2018-03-05 | XMS | Encounter Summary ---
Demographics + + + | Address | [address] | | | [place] [address] | + + + | Home Phone [...] Team Providers + +------+ + | Care Slabber Name | Role | Phone | + [...] + + | 02/01/ | Telephone | [facility] | Alanis, | Other (B12 shot) | | 2017 | | MEDICINE [address] [place] [address] | MD [place] | | | | | [facility] | [address] [place] [address] | | | | | [place] [address] | [place] [address] | | | | | [phone] | [phone] | | | | | | | [...] | | | | | [place] [address] | | | | | | [phone] | | | | | | | | +--------+---------+ + + + | 04/26/ | Office | Orthopedic Surgery | Emmy-Kamlesh, | | | 2017 | Visit | | MD [place] | | | | | | [address] [place] | | | | | | [place] [address] | | | | | | [phone] | | | | | | | | | | | | Lc Vail MD | | | | | | [address] [place] | | | | | | [place] | | | | | | [address] | | | | | | [phone] | | | | | | | | +--------+---------+ + + + as of this encounter Visit Diagnoses Not on filein this encounter"
--- OUTSIDE RECORDS SUMMARY | ~2018-03-05 | XMS | Encounter Summary ---
Demographics + + + | Address | [address] | | | [place] [address] | + + + | Home Phone [...] Team Providers + +------+ + | Care Ship/Rec/Doc Control Name | Role | Phone | + [...] + + | 01/05/ | Telephone | [facility] | Luther Brito MD | Results | | 2017 | | GASTROENTEROLOGY | [address] | | | | | [address] [place] | [address] [place] | | | | | [address] [place], [place] | [place] [address] | | | | | [address] | [phone] | | | | | [phone] | | | +--------+ + + + [...] | | | | | [place] [address] | | | | | | [phone] | | | | | | | | +--------+---------+ + + + | 04/26/ | Office | Orthopedic Surgery | Alanis, | | | 2018 | Visit | | MD [place] | | | | | | [address] [place] | | | | | | [place] [address] | | | | | | [phone] | | | | | | | | | | | | Lc Vail MD | | | | | | [address] [place] | | | | | | [place] | | | | | | [address] | | | | | | [phone] | | | | | | | | +--------+---------+ + + + as of this encounter Visit Diagnoses Not on filein this encounter"
--- OUTSIDE RECORDS SUMMARY | ~2018-03-05 | XMS | Clinical Summary ---
Demographics + + + | Address | [address] | | | [place] [address] | + + + | Home Phone [...] Providers + +------+ + | Care Educational Guidance Counselor Name | Role | Phone | + +------+ + | Petrona Thapa | PP | | | MD | | | [...] + + + + + + | [id number] | Hives, Rash | Low | 10/11/20 | | | eine | | | 17 | | + + + + + + | Cephalexin | Hives | Low | 10/11/20 | | | | | | 17 [...] + + + Current Medications + + + +---------+------+------+-------+ | Prescription | Sig. | Disp. | Refills | Star | End | Statu | | | | | | t | Date | s | | | | | | Date | | | + + + +---------+------+------+-------+ | Multiple | 1 tablet by mouth | | | / | | Activ | | Vitamins-Minerals | twice daily | | | 6/20 | | e | | (COMPLETE WOMENS) | | | | 12 | | | | TABS | | | | | | | + + + +---------+------+------+-------+ | Calcium Carbonate | TABS: 1 tablet by | | | 02/13 | | Activ | | (CALTRATE 600 PO) | mouth four times a | | | 6/20 | | e | | | day | | | 12 | | | + + + +---------+------+------+-------+ | travoprost | 1 drop nightly. | | | | | Activ | | (TRAVATAN Z) 0.004% | | | | | | e | | ophthalmic solution | | | | | | | + + + +---------+------+------+-------+ | ascorbic acid | Take 500 mg by mouth | | | | | Activ | | (VITAMIN C) 500 mg | Daily. | | | | | e | | tablet | | | | | | | + + + +---------+------+------+-------+ | cholecalciferol | Take 5,000 Units by | | | | | Activ | | (VITAMIN D-3) 5000 | mouth Daily. | | | | | e | | UNITS TABS | | | | | | | + + + +---------+------+------+-------+ | zoledronic acid | Inject 5 mg into the | | | | | Activ | | (RECLAST) 5 mg/100 | vein once. YEARLY | | | | | e | | mL SOLN | | | | | | | + + + +---------+------+------+-------+ | clobetasol | apply topically to | | 0 | 07/1 | | Activ | | (TEMOVATE) 0.05% | affected area twice | | | 9/20 | | e | | cream | a day | | | 17 | | | + + + +---------+------+------+-------+ | topiramate | take 2 tablets by | 228 | 5 | 10/1 | | Activ | | (TOPAMAX) 50 MG | mouth every 12 hours | tablet | | 6/20 | | e | | tablet | for MIGRAINE | | | 17 | | | | | PREVENTION | | | | | | + + + +---------+------+------+-------+ | omeprazole | take 1 capsule by | 180 | 1 | 11/1 | | Activ | | (PRILOSEC) 20 mg | mouth twice a day | capsule | | 4/20 | | e | | capsule | | | | 17 | | | + + + +---------+------+------+-------+ | methocarbamol | take 1 tablet by | 60 | 3 | 11/2 | | Activ | | (ROBAXIN) 750 mg | mouth twice a day | tablet | | 0/20 | | e | | tabletIndications: | | | | 17 | | | | Muscle spasm | | | | | | | + + + +---------+------+------+-------+ | | Take 1 tablet by | | | | | Activ | | HYDROcodone-acetamin | mouth every 6 hours | | | | | e | | ophen (NORCO) 10-325 | as needed for Pain. | | | | | | | mg per tablet | | | | | | | + + + +---------+------+------+-------+ | fluticasone | 1 spray by Nasal | 9.9 mL | 5 | 02/0 | | Activ | | (FLONASE) 50 | route 2 times daily. | | | 1/20 | | e | | mcg/nasal | | | | 18 | | | | sprayIndications: | | | | | | | | Chronic allergic | | | | | | | | rhinitis due to | | | | | | | | other allergic | | | | | | | | trigger, unspecified | | | | | | | | seasonality | | | | | | | + + + +---------+------+------+-------+ | betaxolol 0.5% | Place 1 drop into | | | | | Activ | | ophthalmic | both eyes 2 times | | | | | e | | suspension | daily. | | | | | | + + + +---------+------+------+-------+ | nitroglycerin | Place 1 tablet under | 25 | 3 | 04/1 | | Activ | | (NITROSTAT) 0.4 mg | the tongue every 5 | tablet | | 0/20 | | e | | SL | minutes as needed | | | 18 | | | | tabletIndications: | for Chest pain. | | | | | | | Chest pain, | | | | | | | | unspecified type | | | | | | | + + + +---------+------+------+-------+ | UNABLE TO | CPAP Mask | 400 | 5 | 05/0 | | Activ | | FINDIndications: OLIVER | | each | | 3/20 | | e | | (obstructive sleep | | | | 18 | | | | apnea) | | | | | | | + + + +---------+------+------+-------+ | ondansetron | Take 1 tablet by | 120 | 3 | 05/0 | | Activ | | (ZOFRAN ODT) 4 mg | mouth every 6 hours. | tablet | | 3/20 | | e | | disintegrating | | | | 18 | | | | tabletIndications: | | | | | | | | Nausea | | | | | | | + + + +---------+------+------+-------+ | torsemide | take 1 tablet by | 25 | 5 | 07/1 | | Activ | | (DEMADEX) 5 mg | mouth 5 TIMES A WEEK | tablet | | 6/20 | | e | | tablet | | | | 18 | | | + + + +---------+------+------+-------+ | furosemide (LASIX) | take 1 tablet by | 180 | 1 | 07/2 | | Activ | | 80 mg tablet | mouth twice a day | tablet | | 0/20 | | e | | | | | | 18 | | | + + + +---------+------+------+-------+ | naloxone (NARCAN) | Inject 1 mL under | 1 mL | 4 | 08/0 | | Activ | | 0.4 mg/mL injection | the skin as needed | | | 1/20 | | e | | | for Apnea or | | | 18 | | | | | Decreased | | | | | | | | Responsiveness. | | | | | | + + + +---------+------+------+-------+ | | Take 1 tablet by | 120 | 5 | 08/0 | | Activ | | diphenoxylate-atropi | mouth 4 times daily | tablet | | 3/20 | | e | | ne (LOMOTIL) | as needed for | | | 18 | | | | 2.5-0.025 mg per | Diarrhea. | | | | | | | tabletIndications: | | | | | | | | Chronic diarrhea, | | | | | | | | S/P bariatric | | | | | | | | surgery | | | | | | | + + + +---------+------+------+-------+ | gabapentin | Take 3 capsules by | 270 | 3 | 08/0 | | Activ | | (NEURONTIN) 300 mg | mouth 3 times daily. | capsule | | 3/20 | | e | | capsuleIndications: | | | | 18 | | | | Chronic bilateral | | | | | | | | low back pain | | | | | | | | without sciatica | | | | | | | + + + +---------+------+------+-------+ | potassium chloride | take 3 tablets by | 450 | 1 | 08/0 | | Activ | | (KLOR-CON M20) 20 | mouth every morning | tablet | | 8/20 | | e | | mEq ER tablet | and 2 every evening | | | 18 | | | | | with food | | | | | | + + + +---------+------+------+-------+ | levothyroxine | take 1 tablet by | 90 | 2 | 08/2 | | Activ | | (SYNTHROID) 75 MCG | mouth every morning | tablet | | 3/20 | | e | | tablet | BEFORE BREAKFAST | | | 18 | | | + + + +---------+------+------+-------+ | sucralfate | Take 1 tablet by | 120 | 1 | 09/0 | | Activ | | (CARAFATE) 1 g | mouth 4 times daily | tablet | | 6/20 | | e | | tablet | as needed. | | | 18 | | | + + + +---------+------+------+-------+ | metoprolol | take 1/2 tablet by | 30 | 3 | 09/ | | Activ | | tartrate (LOPRESSOR) | mouth twice a day | tablet | | 2/20 | | e | | 25 mg tablet | | | | 18 | | | + + + +---------+------+------+-------+ | meclizine | take 1 tablet by | 90 | 0 | 02/13 | | Activ | | (ANTIVERT) 25 mg | mouth three times a | tablet | | 2/20 | | e | | tablet | day if needed for | | | 18 | | | | | dizziness | | | | | | + + + +---------+------+------+-------+ | SUMAtriptan | 1 tab by mouth with | 9 | 0 | 09/1 | | Activ | | (IMITREX) 25 mg | onset of migraine, | tablet | | 9/20 | | e | | tablet | may repeat in 2 | | | 18 | | | | | hours if no relief. | | | | | | | | Max 2 tabs/24 hours | | | | | | + + + +---------+------+------+-------+ | promethazine | Place 1 suppository | 20 | 1 | 02/14 | | Activ | | (PHENERGAN) 12.5 mg | rectally every 6 | supposito | | 07/04 | | e | | suppositoryIndicatio | hours as needed for | ry | | 18 | | | | ns: Non-intractable | Nausea or Vomiting. | | | | | | | vomiting with | | | | | | | | nausea, unspecified | | | | | | | | vomiting type | | | | | | | + + + +---------+------+------+-------+ | meclizine | take 1 tablet by | | 0 | 12/13 | 02/13 | Disco | | (ANTIVERT) 25 mg | mouth three times a | | | 03/04 | 08/04 | ntinu | | tablet | day if needed for | | | 17 | 18 | ed | | | dizziness | | | | | | + + + +---------+------+------+-------+ | metoprolol | take 1/2 tablet by | 30 | 11 | 03/15 | 02/13 | Disco | | tartrate (LOPRESSOR) | mouth twice a day | tablet | | 08/04 | 020 | ntinu | | 25 mg tablet | | | | 17 | 18 | ed | + + + +---------+------+------+-------+ | sucralfate | Take 1 tablet by | 120 | 1 | 04/1 | 09/0 | Disco | | (CARAFATE) 1 g | mouth 4 times daily | tablet | | 0/20 | 6/20 | ntinu | | tablet | as needed. | | | 18 | 18 | ed | + + + +---------+------+------+-------+ | SUMAtriptan | Take 1 tablet by | 12 | 0 | 09/ | 09 | Disco | | (IMITREX) 25 mg | mouth as needed for | tablet | | 8/20 | 9/20 | ntinu | | tablet | Migraine. | | | 18 | 18 | ed | + + + +---------+------+------+-------+ + + [...] | (VITAMIN B-12) | | | | /20 | | e | | injection 1,000 mcg | | | | 18 | | | + + +-------+ +------+------+-------+ | triamcinolone | 40 mg | IX | ONCE | 02/13 | 02/13 | Ended | | acetonide | | | | 07/04 | 07/04 | | | (KENALOG-40) 40 | | | | 18 | 18 | | | mg/mL injection 40 | | | | | | | | mgIndications: Acute | | | | | | | | pain of right | | | | | | | | shoulder, Tear of | | | | | | | | right supraspinatus | | | | | | | | tendon, initial | | | | | | | | encounter | | | | | | | + + +-------+ +------+------+-------+ Active Problems + + + | Problem | Noted Date | + + + | Fatty liver | 01/15/2018 | + + + | S/P bariatric surgery | 01/15/2018 | + + + | Dysfunction of left eustachian tube | 01/01/2018 | + + + | Diarrhea, unspecified type | 11/24/2017 | + + + | Chronic diarrhea | 11/24/2017 | + + + | Gastroesophageal reflux disease, esophagitis presence not | 11/24/2017 | | specified | | + + + | History of gastric ulcer | 11/24/2017 | + + + | Abdominal pain | 11/24/2017 | + + + | Narcotic dependence (HCC) | 11/24/2017 | + + + | Obesity (BMI 30-39.9) | 11/24/2017 | + + + | Type II or unspecified type diabetes mellitus with other | 05/04/2017 | | specified manifestations, not stated as uncontrolled | | + + + | Bilateral sacroiliitis (HCC) | 02/27/2015 | + + + | S/P lumbar fusion | 01/04/2015 | + + + | Chronic neck pain | 01/04/2015 | + + + | Chronic low back pain | 01/04/2015 | + + + | Lumbar radiculopathy primarily right | 01/04/2015 | + + + | Right arm pain | 01/04/2015 | + + + | BENIGN PAROXYSMAL POSITIONAL VERTIGO | 07/21/2011 | + + + | DIZZINESS AND GIDDINESS | 05/20/2010 | + + + | MENIERE'S DISEASE | 05/20/2010 | + + + | TINNITUS | 05/20/2010 | + + + | S/P gastric bypass | 07/25/2008 | + + + | Chronic shoulder pain | 07/24/2008 | + + + + + | Overview: Overview: | | Left: Calcific tendinitis of the supraspinatus tendon. | | Right: Normal | + + + + + | Coccydynia | 07/24/2008 | + + + | Osteopenia | 08/24/2007 | + + + | Major depressive disorder, recurrent episode, moderate (HCC) | 07/31/2006 | + + + | HYPERTENSION, BENIGN ESSENTIAL | | + + + | PALPITATIONS | | + + + | LUMBAGO | | + + + | RHEUMATOID ARTHRITIS | | + + + + + | Overview: ICD-10 Record update | + + + +---+ | COMMON MIGRAINE | | + +---+ | FIBROMYALGIA | | + +---+ | CLOS FX UNS PART VERT COLUMN W/O SP CRD INJURY | | + +---+ | SCOLIOSIS , IDIOPATHIC | | + +---+ | HYPOTHYROIDISM | | + +---+ | UNSPECIFIED HEARING LOSS | | + +---+ + + | Overview: ICD-10 Record update | + + + +---+ | RENAL CYST, LEFT | | + +---+ Encounters +--------+ + + + + | Date | Type | Specialty | Care Team | Description | +--------+ + + + + | 03/05/ | Telephone | | Alanis, | Other | | 2017 | | | MD Petrona | | +--------+ + + + + | 03/05/ | Telephone | | Alanis | Vomiting | | 2017 | | | MD [place]a | | +--------+ + + + + | 03/04/ | Telephone | | Alanis, | Fever | | 2018 | | | MD Petrona | | +--------+ + + + + | 03/03/ | Telephone | | Alanis, | Medication Question | | 2017 | | | MD Petrona | | +--------+ + + + + | 03/02/ | Hospital | | Alanis, | Neck pain on right | | 2018 | Encounter | | MD Petrona | side | +--------+ + + + + | 03/02/ | Office | | Alanis, | Neck pain on right | 2018 | Visit | | MD Petrona | side (Primary Dx); | | | | | | Primary stabbing | | | | | | headache; | | | | | | Non-intractable | | | | | | vomiting with | | | | | | nausea, unspecified | | | | | | vomiting type | +--------+ + + + + | 03/02/ | Telephone | | Alanis, | Lab Results | | 2017 | | | MD Pert[place] | | +--------+ + + + + | 03/02/ | Telephone | | Alanis, | Results, Imaging | | 2017 | | | MD Petrona | | +--------+ + + + + | 03/01/ | Telephone | | Alanis, | Other | | 2017 | | | MD Petrona | | +--------+ + + + + | 02/24/ | Refill | | Alanis, | Medication Refill | | 2017 | | | MD Petrona | | +--------+ + + + + | 02/23/ | Hospital | | [facility], | Right shoulder pain, | | 2017 | Encounter | | MD | unspecified | | | | | | chronicity | +--------+ + + + + | 02/23/ | Office | | [facility] [place], | Acute pain of right | | 2017 | Visit | | MD | shoulder; Tear of | | | | | | right supraspinatus | | | | | | tendon, initial | | | | | | encounter | +--------+ + + + + | 02/22/ | Refill | | Alanis, | Medication Refill | | 2017 | | | MD Petrona | | +--------+ + + + + | 02/22/ | Orders Only | | [facility] [place], | Right shoulder pain, | | 2017 | | | MD | unspecified | | | | | | chronicity (Primary | | | | | | Dx) | +--------+ + + + + | 02/18/ | Refill | | Alanis, | Results, Imaging | | 2017 | | | MD Petrona | | +--------+ + + + + | 02/18/ | Telephone | | Alanis, | Results | | 2017 | | | MD [place]rona | | +--------+ + + + + | 02/17/ | Clinical | | Alanis, | Vitamin B12 | | 2017 | Support | | MD Petrona | deficiency | +--------+ + + + + | 02/17/ | Hospital | | Alanis, | Acute pain of right | | 2017 | Encounter | | MD Petrona | shoulder | +--------+ + + + + | 02/11/ | Telephone | | Alanis, | Arm Pain (Right Arm) | | 2018 | | | MD Petrona | | +--------+ + + + + | 02/04/ | Telephone | | Alanis, | Other (Kidney pain ) | | 2017 | | | MD Petrona | | +--------+ + + + + | 02/03/ | Refill | | Alanis, | Medication Refill | | 2017 | | | MD [place]rona | | +--------+ + + + + | 02/01/ | Telephone | | Alanis, | Other (B12 shot) | | 2017 | | | MD Petrona | | +--------+ + + + + | 01/25/ | Telephone | | Alanis, | Medical Problem | | 2018 | | | MD [place]rona | | +--------+ + + + + | 01/20/ | Refill | | Alanis, | Medication Refill | | 2017 | | | MD [place]ron[place] | | +--------+ + + + + | 01/15/ | Office | | Alanis, | Acute pain of right | | 2018 | Visit | | MD Petrona | shoulder (Primary | | | | | | Dx); Chronic | | | | | | diarrhea; Fatty | | | | | | liver; S/P bariatric | | | | | | surgery; Chronic | | | | | | bilateral low back | | | | | | pain without | | | | | | sciatica; Tear of | | | | | | right supraspinatus | | | | | | tendon, initial | | | | | | encounter | +--------+ + + + + | 01/15/ | Procedure | | | | | 2018 | Pass | | | | +--------+ + + + + | 01/14/ | Refill | | Alanis, | Medication Refill | | 2017 | | | MD Petrona | | +--------+ + + + + | 01/12/ | Refill | | Alanis, | Medication Refill | | 2017 | | | MD [place]rona | | +--------+ + + + + | 01/08/ | Telephone | | Alanis, | Results, Imaging | | 2017 | | | MD [place]ron[place] | | +--------+ + + + + | 01/05/ | Telephone | | Luther Brito MD | Results | | 2017 | | | | | +--------+ + + + + | 01/04/ | Telephone | | Alanis, | Skin Irritation | | 2017 | | | MD [place]rona | | +--------+ + + + + | 01/04/ | Telephone | | Ulysses Genao MD | Other | | 2017 | | | | | +--------+ + + + + | 01/04/ | Orders Only | | Ulysses Genao MD | Benign paroxysmal | | 2017 | | | | positional vertigo, | | | | | | unspecified | | | | | | laterality (Primary | | | | | | Dx); Dysfunction of | | | | | | left eustachian tube | +--------+ + + + + | 01/04/ | Telephone | | Ulysses Genao MD | Other | | 2017 | | | | | +--------+ + + + + | 01/01/ | Refill | | Alanis, | Medication Refill | | 2017 | | | MD [place] | | +--------+ + + + + | 12/30/ | Office | | Ulysses Genao MD | Benign paroxysmal | | 2017 | Visit | | | positional vertigo, | | | | | | unspecified | | | | | | laterality (Primary | | | | | | Dx); Dysfunction of | | | | | | left eustachian tube | +--------+ + + + + | 12/30/ | Office | | Elisabet Munson MS | Subjective tinnitus | | 2017 | Visit | | CCC-A | of left ear (Primary | | | | | | Dx) | +--------+ + + + + | 12/28/ | Telephone | | Alanis, | Results, Imaging | | 2017 | | | MD Petroan | | +--------+ + + + + | 12/28/ | Telephone | | Alanis, | Radiology | | 2017 | | | MD Petrona | Appointment | +--------+ + + + + | 12/26/ | Refill | | Alanis, | Medication Refill | | 2017 | | | MD [place]ron[place] | | +--------+ + + + + | 12/18/ | Hospital | | Luther Brito MD | Abdominal pain, | | 2018 | Encounter | | | unspecified | | | | | | abdominal location; | | | | | | Gastroesophageal | | | | | | reflux disease, | | | | | | esophagitis presence | | | | | | not specified; | | | | | | History of gastric | | | | | | ulcer; Diarrhea, | | | | | | unspecified type | +--------+ + + + + | 12/18/ | Procedure | | | | | 2018 | Pass | | | | +--------+ + + + + | 12/18/ | Surgery | | Luther Brito MD | EGD | | 2017 | | | | | +--------+ + + + + | 12/17/ | Anesthesia | | Ruben Kumar | | | 2017 | Event | | MD [place] | | +--------+ + + + + | 12/10/ | Office | | Alanis, | Elevated liver | | 2017 | Visit | | MD Petrona | enzymes (Primary | | | | | | Dx); Limb cramps; | | | | | | Physical | | | | | | deconditioning; | | | | | | Chronic bilateral | | | | | | low back pain | | | | | | without sciatica; | | | | | | Primary | | | | | | osteoarthritis of | | | | | | both knees | +--------+ + + + + | 12/10/ | Telephone | | Alanis, | Lab Results | | 2017 | | | MD [place]ron[place] | | +--------+ + + + + | 12/07/ | Abstract | | Alanis, | | | 2017 | | | MD [place] | | +--------+ + + + + from Last 3 Months Immunizations + + + + | Name | Dates Previously Given | Next Due | + + + + | INFLUENZA PF | 02/04/2017 | | | QUAD(PED/ADOL/ADULT) | | [...] + + + | TDAP, (ADOL/ADULT) | 06/17/2014 | | + + + + Family [...] | + + +------+ + | Renal Failure | Son | | | + + [...] | 172.7 cm (5' 8") | 02/23/2018 130 PDT | + + + + | Body Mass Index | 33.92 | 03/02/2018926 PDT | + + + + Plan of Treatment +--------+---------+ + + + | Date | Type | Specialty | Care Team | Description | +--------+---------+ + + + | 03/16/ | Office | | Alanis, | | | 2017 | Visit | | MD Petrona | | | | | | [address] | | | | | | [place] [address] | | | | | | [phone] | | | | | | | | +--------+---------+ + + + | 04/26/ | Office | | Alanis, | | | 2017 | Visit | | MD Petrona | | | | | | [address] | | | | | | [place] [address] | | | | | | [phone] | | | | | | | | | | | | Lc [facility] MD | | | | | | [address] | | | | | | [place] | | | | | | [address] | | | | | | [phone] | | | | | | | | +--------+---------+ + + + + + + + + | Health Maintenance | Due Date | Last Done | Comments | + + + + + | Diabetic Eye Exam | | | | | (Bi-Annually) | 7 | | | + + + + + | Diabetic Foot Exam | | | | | | 7 | | | + + + + + | Hemoglobin A1c Q3 | | | | | Months | 7 | | | + + + + + | Cervical Cancer | | | | | Screening (Pap) | 9 | | | + + + + + | BREAST CANCER | | | | | SCREENING (MAMM Q2 | 9 | | | | YEARS 50-74) | | | | + + + + + | Microalbumin | | | | | Screening | 5 | | | + + + + + | Statin Therapy | | | | | (optimal intensity) | 5 | | | + + + + + | Vaccine: Influenza | | 02/06/2017, 02/04/2017, | | | (#1) | 8 | 02/08/2016, Additional history | | | | | exists | | + + + + + | Vaccine: | | 06/17/2014 | | | Dtap/Tdap/Td (2 - | 5 | | | | Td) | | | | + + + + + | Colorectal Cancer | | 12/18/2017, 12/18/2017 | | | Screening | 8 | | | | (Colonoscopy) | | | | + + + + + | Vaccine: | Completed | 03/23/2010 | | | Pneumococcal 19-64 | | | | | (PPSV23 only) Medium | | | | | Risk | | | | + + + + + | Hepatitis C | Completed | 12/10/2017 | | | Screening | | | | + + + + + Procedures + +--------+ + + + | Procedure Name | Priori | Date/Time | Associated Diagnosis | Comments | | | ty | | | | + +--------+ + + + | COMPREHENSIVE | Routin | 03/02/2018 | Non-intractable | Results for this | | METABOLIC PANEL | e | 1041 PDT | vomiting with | procedure are in the | | | | | nausea, unspecified | results section. | | | | | vomiting type | | + +--------+ + + + | CBC WITH | Routin | 03/02/2018 | Non-intractable | Results for this | | DIFFERENTIAL | e | 1041 PDT | vomiting with | procedure are in the | | | | | nausea, unspecified | results section. | | | | | vomiting type | | + +--------+ + + + | SEDIMENTATION RATE | Routin | 03/02/2018 | Primary stabbing | Results for this | | | e | 1041 PDT | headache | procedure are in the | | | | | | results section. | + +--------+ + + + | XR CERVICAL SPINE 2 | Routin | 03/02/2018 | Neck pain on right | Results for this | | OR 3 VIEWS | e | 1039 PDT | side | procedure are in the [...] + +--------+ + + + | MRI SHOULDER RIGHT | Routin | 02/17/2018 | Acute pain of | Results for this | | WO CONTRAST | e | 1055 PDT | right shoulder | procedure are in the | | [...] for this | | | e | 1049 PDT | | procedure are in the | | | | | | results section. | + +--------+ + + + | COLONOSCOPY | | 12/18/2017 | Chronic diarrhea | | | | | 1045 PDT | (K52.9), S/P gastric | | | | | | bypass (Z98.84), | | | | [...] | | | | | | (R10. | | + +--------+ + + + | EGD | | 12/18/2017 | Chronic diarrhea | | | | | 1045 PDT | (K52.9), S/P gastric | | | | | | bypass (Z98.84), | | | | [...] | | | | | | (R10. | | + +--------+ + + + | COLONOSCOPY | Routin | 12/18/2017 | | Results for this | | | e | 1043 PDT | | procedure are in the | | | | | | results section. | + +--------+ + + + | SURGICAL PATHOLOGY | Routin | 12/18/2017 | | Results for this | | EXAM | e | 0000 PDT | | procedure are in the | | | | | | results section. | + +--------+ + + + | POTASSIUM | Routin | 12/10/2017 | Limb cramps | Results for this | | | e | 1030 PDT | | procedure are in the | | | | | | results section. | + +--------+ + + + | MAGNESIUM | Routin | 12/10/2017 | Limb cramps | Results for this | | | e | 1030 PDT | | procedure are in the | | | | | | results section. | + +--------+ + + + | HEPATITIS C AB | Routin | 12/10/2017 | Elevated liver | Results for this | | | e | 1030 PDT | enzymes | procedure are in the | | | | | | results section. | + +--------+ + + + from Last 3 Months Results Sedimentation Rate (03/02/2018 1041) + +-------+ + + | Component | Value | Ref Range | Performed At | + +-------+ + + | ESR | 4 | <30 mm/hr | [facility] | | | | | [facility] | | | | | [facility] | | | | | LABORATORY | + +-------+ + + + + | Specimen | + + | Blood | + + + + + + + | Performing | Address | City/State/Zipcode | Phone Number | | Organization | | | | + + + + + | [facility] | [address] | [place], [place] | [phone] | | [facility] | | [address] | | | - LABORATORY | | | | + + + + + | [facility] | [address] | [place], [place] | | | [facility] | | [address] | | | - LABORATORY | | | | + + + + + CBC with Differential (03/02/20181040) + + + + + | Component | Value | Ref Range | Performed At | + + + + + | WBC | 10.3 | 4.0 - 11.0 K/uL | [facility] | | | [...] + | [facility] | [address] | [place] | [phone] | | [facility] | | [address] | | | - LABORATORY | | | | + + + + + | [facility] | [address] | [place] | | | [facility] | | [address] | | | - LABORATORY | | | | + + + + + Comprehensive Metabolic Panel (03/02/2018 1041) + + [...] ST. | | Serum/Plasma | | | [facility] | | | | | CENTER - | | | | | LABORATORY | + + + + + | eGFR if not | >60Comment: GLOMERULAR | >=60 mL/min/1.73m2 | [facility] | | [place] | FILTRATION | | [facility] | | | RATE,ESTIMATED mL/min | | CENTER - | | | /1.21l5Argb than 60 | | LABORATORY | | [...] [facility] | | | | | [facility] | | | | | [...] | 1.5 | 0.8 - 2.0 | [facility] | | ratio | | | [facility] | | | | | CENTER - | | | | | LABORATORY | + + + + + | JENNY/BRE | 10.8 | | [facility] | | | | [facility] | | | | | [...] [address] | [place] | [phone] | | [facility] | | [address] | | | - LABORATORY | | | | + + + + + | [facility] | [address] | [place], [place] | | | [facility] | | [address] | | | - LABORATORY | | [...] | | | + +---------+ + + XR Shoulder Right 1 Vw (02/23/2018 1304) [...] | | | + +---------+ + + MRI Shoulder Right wo Contrast (02/17/2018 1055) [...] + + | Performing | Address | City/[facility] | Phone Number | | Organization | | | | + +---------+ + + | [facility] | | | | + +---------+ + + DIAGNOSTIC REPORT - EXTERNAL SCAN (12/30/2017) + + + | Narrative | Performed At | + + + | Ordered by an | | | unspecified provider. | | + + + IMAGING REPORT - EXTERNAL SCAN (12/28/2017) + + + | Narrative | Performed At | + + + | Ordered by an | | | unspecified provider. | | + + + EGD (12/18/2017 1049) + + ---+ | Narrative | Performed At | + + ---+ | | [facility] | | GastroenterologyPatient Name: Belinda BrittonsProcedstanley Date: 12/18/2017 | [facility] | | 10:49 AMMRN: [id number] #: [id number] of : | | | 9Admit Type: AmbulatoryAge: 57Room: [facility] 01Gender: FemaleNote | | | Status: FinalizedAttending MD: Luther Brito , | | | MDProcedure: Upper GI | | | endoscopyIndications: Generalized abdominal pain, | | | Heartburn, Suspected esophageal | | | reflux, DiarrheaProviders: Luther Brito MD, | | | Maris Epperson RN, Tal Diaz, | | | [facility], Ruben Kumar MD | | | (Anesthesia Staff)Medicines: Monitored Anesthesia | | | CareComplications: No immediate | | | complications.Procedure: Pre-Anesthesia Assessment: - | | | Prior to the procedure, a History and Physical was performed, and | | | patient medications and allergies were reviewed. The patient | | | is competent. The risks and benefits of the procedure and the | | | sedation options and risks were discussed with the patient. | | | All questions were answered and informed consent was | | | obtained. Patient identification and proposed procedure were | | | verified by the physician, the nurse, the anesthesiologist | | | and the organic extractions technician in the pre-procedure area in the procedure | | | room. Mental Status Examination: alert and oriented. Airway | | | Examination: normal oropharyngeal airway and neck mobility. | | | Respiratory Examination: clear to auscultation. CV | | | Examination: normal. Prophylactic Antibiotics: The patient | | | does not require prophylactic antibiotics. Prior | | | Anticoagulants: The patient has taken no previous anticoagulant or | | | antiplatelet agents. ASA Grade Assessment: III - A patient | | | with severe systemic disease. After reviewing the risks and | | | benefits, the patient was deemed in satisfactory condition to | | | undergo the procedure. The anesthesia plan was to use | | | monitored anesthesia care (MAC). Immediately prior to | | | administration of medications, the patient was re-assessed for | | | adequacy to receive sedatives. The heart rate, respiratory | | | rate, oxygen saturations, blood pressure, adequacy of | | | pulmonary ventilation, and response to care were monitored | | | throughout the procedure. The physical status of the patient | | | was re-assessed after the procedure. After obtaining informed | | | consent, the endoscope was passed under direct vision. | | | Throughout the procedure, the patient's blood pressure, pulse, | | | and oxygen saturations were monitored continuously. The | | | Endoscope was introduced through the mouth, and advanced to | | | the afferent and efferent jejunal loops. The upper GI | | | endoscopy was accomplished without difficulty. The patient | | | tolerated the procedure well.Findings: The Z-line was | | | irregular and was found 35 cm from the incisors. Biopsies | | | were taken with a cold forceps for histology. Verification of patient | | | identification for the specimen was done by the physician and | | | nurse using the patient's name and date. Estimated | | | blood loss was minimal. 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 The gastrojejunal anastomosis | | | was characterized by healthy appearing mucosa. This was | | | traversed. The mouoe-qx-qnqmoxc limb was characterized by healthy | | | appearing mucosa. The jejunojejunal anastomosis was | | | characterized by healthy appearing mucosa. The | | | wnekwzqo-jo-pxuciob limb was not examined as it could not be | | | reached. Biopsies were taken with a cold forceps for | | | histology. Verification of patient identification for the specimen was | | | done by the physician and nurse using the patient's name and | | | date. Estimated blood loss was minimal. | | | Diffuse mildly erythematous mucosa without bleeding was found in the | | | stomach. Biopsies were taken with a cold forceps for | | | histology. Verification of patient identification for the [...] for emergencies. The signs and symptoms of | | | potential delayed complications were discussed with the | | | patient. Return to normal activities tomorrow. Written discharge | | | instructions were provided to the patient. - High | | | fiber diet. - Continue present medications. - Await | | | pathology results. - Repeat upper endoscopy for surveillance | | | based on pathology results. - Return to GI clinic PRN. | | | - No aspirin, ibuprofen, naproxen, or other non-steroidal | | | anti-inflammatory drugs. - The findings and recommendations | | | were discussed with the patient. - Low fat diet | | | indefinitely.Luther Brito MD12/18/2017 11:59:34 AMThis report has | | | been signed electronically.Number of Addenda: 0Note Initiated On: | | | 12/18/2017 10:49 AMTotal Procedure Duration: 0 hours 7 minutes 58 | | | seconds Scope In: 11:00:36 AMScope Out: 11:08:34 AM [place] | | | [facility], [address], [place] | | | [address] | | |Luther Brito MD | | |12/18/2017 11:59:34 AM | | |This report has been signed electronically. | | |Number of Addenda: 0 | | |Note Initiated On: 12/18/2017 10:49 AM | | |Total Procedure Duration: 0 hours 7 minutes 58 seconds | | |Scope In: 11:00:36 AM | | |Scope Out: 11:08:34 AM | | | [facility], [address] [facility], [place], [place] | | | [address] | | + + ---+ + +---------+ + + | Performing | Address | City/State/Zipcode | Phone Number | | Organization | | | | + +---------+ + + | [facility] | | | | + +---------+ + + COLONOSCOPY (12/18/2017 1043) + + ---+ | Narrative | Performed At | + + ---+ | | [facility] | | GastroenterologyPatient Name: Belinda BrittonsProcedure Date: 12/18/2017 | [facility] | | 10:43 AMMRN: [id number] #: [id number] of : | | | 9Admit Type: AmbulatoryAge: 57Room: [facility] 01Gender: FemaleNote | | | Status: FinalizedAttending MD: Luther Brito , | | | MDProcedure: ColonoscopyIndications: | | | Generalized abdominal pain, Chronic diarrheaProviders: | | | Luther Brito MD, Maris Epperson RN, Tal Diaz, | | | [facility], Ruben Kumar MD | | | (Anesthesia Staff)Medicines: Monitored Anesthesia | | | CareComplications: No immediate | | | complications.Procedure: Pre-Anesthesia Assessment: - | | | Prior to the procedure, a History and Physical was performed, and | | | patient medications and allergies were reviewed. The patient | | | is competent. The risks and benefits of the procedure and the | | | sedation options and risks were discussed with the patient. | | | All questions were answered and informed consent was | | | obtained. Patient identification and proposed procedure were | | | verified by the physician, the nurse, the anesthesiologist | | | and the organic extractions technician in the pre-procedure area in the procedure | | | room. Mental Status Examination: alert and oriented. Airway | | | Examination: normal oropharyngeal airway and neck mobility. | | | Respiratory Examination: clear to auscultation. CV | | | Examination: normal. Prophylactic Antibiotics: The patient | | | does not require prophylactic antibiotics. Prior | | | Anticoagulants: The patient has taken no previous anticoagulant or | | | antiplatelet agents. ASA Grade Assessment: III - A patient | | | with severe systemic disease. After reviewing the risks and | | | benefits, the patient was deemed in satisfactory condition to | | | undergo the procedure. The anesthesia plan was to use | | | monitored anesthesia care (MAC). Immediately prior to | | | administration of medications, the patient was re-assessed for | | | adequacy to receive sedatives. The heart rate, respiratory | | | rate, oxygen saturations, blood pressure, adequacy of | | | pulmonary ventilation, and response to care were monitored | | | throughout the procedure. The physical status of the patient | | | was re-assessed after the procedure. After I obtained informed | | | consent, the scope was passed under direct vision. | | | Throughout the procedure, the patient's blood pressure, pulse, | | | and oxygen saturations were monitored continuously. The | | | Colonoscope was introduced through the anus and advanced to 5 | | | cm into the ileum. The colonoscopy was technically difficult | | | and complex due to previous surgery, restricted mobility of | | | the colon, a redundant colon, significant looping, a tortuous | | | colon and the patient's body habitus. The patient tolerated | | | the procedure well. The quality of the bowel preparation was | | | fair.Findings: The perianal and digital rectal examinations | | | were normal. A 7 mm polyp was found in the transverse colon. | | | The polyp was sessile. The polyp was removed with a hot | | | snare. Resection and retrieval were complete. Verification of | | | patient identification for the specimen was done by the | | | physician and nurse using the patient's name and date. | | | Estimated blood loss was minimal. No other significant | | | abnormalities were identified in a careful examination of the | | | remainder of the colon. Biopsies for histology were taken | | | with a cold forceps from the right colon, left colon and | | | transverse colon for evaluation of microscopic | | | colitis. No other significant abnormalities were identified in | | | a careful examination of the remainder of the colon. | | | The terminal ileum appeared normal. The retroflexed view of | | | the distal rectum and anal verge was normal and showed no | | | anal or rectal abnormalities.Impression: - Preparation of the | | | colon was fair. - One 7 mm polyp in the transverse colon, | | | removed with a hot snare. Resected and retrieved. - | | | The examined portion of the ileum was normal. - The distal | | | rectum and anal verge are normal on retroflexion view. - | | | Biopsies were taken with a cold forceps from the right colon, left | | | colon and transverse colon for evaluation of microscopic | | | colitis.Recommendation: - Patient has a contact number | | | available for emergencies. The signs and symptoms of | | | potential delayed complications were discussed with the | | | patient. Return to normal activities tomorrow. Written discharge | | | instructions were provided to the patient. - High | | | fiber diet and low fat diet. - Continue present | | | medications. - Await pathology results. - Repeat | | | colonoscopy in 3 years for surveillance based on pathology | | | results. - Return to GI clinic PRN. - No aspirin, | | | ibuprofen, naproxen, or other non-steroidal anti-inflammatory | | | drugs. - The findings and recommendations were discussed with | | | the patient.Luther Brito MD12/18/2017 12:03:26 PMThis report has | | | been signed electronically.Number of Addenda: 0Note Initiated On: | | | 12/18/2017 10:43 AMScope Withdrawal Time: 0 hours 15 minutes 57 seconds | | | Total Procedure Duration: 0 hours 44 minutes 29 seconds Scope In: | | | 11:12:28 AMScope Out: 11:56:57 AM [facility] | | | [place], [address] [place] [address] | | | - Return to GI [...] |Scope Out: 11:56:57 AM | | | [facility], [address] [facility], [place], [place] | | | [address] | | + + ---+ + +---------+ + + | Performing | Address | City/State/[facility] Mexicocode | Phone Number | | Organization | | | | + +---------+ + + | [facility] | | | | + +---------+ + + Surgical Pathology Exam (12/18/2017) + + + | Narrative | Performed [...] specific diagnostic abnormality. C. GE junction, biopsy: | | | - Gastroesophageal junction with reactive epithelial features and | | | mild chronic inflammation. - Negative for specialized intestinal | | | metaplasia or dysplasia. D. Transverse colon polyp, biopsy: | | | - Tubular adenoma (one fragment). E. Random colon biopsy: | | | - Benign colonic mucosa, negative for specific diagnostic | | | abnormality. JVR:[facility]:C2NR GROSS DESCRIPTION: Received in five | | | parts. All specimens are received in formalin, labeled "Belinda | | | Shefali." All specimen descriptions are listed on the requisition, | | | not the containers. A. Part A, "gastric biopsies," consists of | | | five foss-pink and karimi colored tissue fragments measuring from 0.15 to | | | 0.5 cm. Submitted all in (A1). B. Part B, "jejunal | | | biopsies," consists of eight foss-pink and karimi colored tissue | | | fragments measuring from 0.1 to 0.4 cm. Submitted all in (B1). | | | C. Part C, "GE junction biopsies," consists of two foss-karimi tissue | | | fragments measuring from 0.3 to 0.5 cm. Submitted all in (C1). | | | D. Part D, "transverse colon polyp," consists of a 0.5 x 0.4 x 0.25 | | | cm, yellow-pink and karimi colored tissue fragment. Submitted all in | | | (D1). E. Part E, "Random colon biopsies," consists of nine | | | pink-karimi tissue fragments measuring from 0.1 to 0.4 cm. Submitted | | | all in (E1). ka:CLR:glc PERFORMING LABORATORY: Tissue processing | | | and slide preparation were performed by [facility], [address] | | [facility], [address], [place] [address] (Silo Operator: Stephen | | | Joanna Jacobson IA#: [id number]). Professional interpretation was | | | performed by [facility], [facility] | | | Branch, [address] [facility], [place] [address] (Medical | | | Director: Stephen Jacobson M.D.; EWA#: [id number]). | | | Diagnostician: Stephen Jacobson MD Pathologist Electronically | | | Signed 12/21/2017 | | + + + + +---------+ + + | Performing | Address | City/State/Zipcode | Phone Number | | Organization | | | | + +---------+ + + | [facility] | | | | | [facility] | | | | + +---------+ + + Hepatitis C Ab (12/10/2017 1030) [...] 0.9 | | | | | The CDC recommends that | | | | | a positive HCV antibody | | | | | result be followed up | | | | | with a HCV Nucleic Acid | | | | | Amplification test | | | | | ([id number]). | | | + + + + + + + | Specimen | + + | Blood | + + + + + | Narrative | Performed At | + + + | Performed at: 01 - [facility] [address], | REFERENCE LAB | | [place], [place] [id number] Auditor Internal: Bandar Gan MD, | MARIANNA [place]Y | | Phone: [phone] | | + + + + + + + + | Performing | Address | City/State/Zipcode | Phone Number | | Organization | | | | + + + + + | REFERENCE LAB | [address] | [place], [place] [address] | [phone] | | [facility] - [place] | Asha Soni | | | + + + + + Potassium (12/10/2017 1030) + [...] + | [facility] | [address] | [place] | [phone] | | [facility] | | [address] | | | - LABORATORY | | | | + + + + + | [facility] | [address] | [place], [place] | | | [facility] | | [address] | | | - LABORATORY | | | | + + + + + Magnesium (12/10/2017 1030) + +-------+ + + | Component | Value | Ref Range | Performed At | + +-------+ + + | MG | 2.4 | 1.8 - 2.5 mg/dL | [facility] | | | [facility] | | | | | [...] + | [facility] | [address] | [place] | [phone] | | [facility] | | [address] | | | - LABORATORY | | | | + + + + + | [facility] | [address] | [place] | | | [facility] | | [address] | | | - LABORATORY | | | | + + + + + from Last 3 Months Insurance + +--------+ +--------+ +---------+ | Payer | Benefi | Subscriber | Type | Phone | Address | | | t Plan | ID | | | | | | / | | | | | | | Group | | | | | + +--------+ +--------+ +---------+ | MEDICARE | MEDICA | [id number] | Medica | +- | | | | RE | | re | [phone] | | | | PART A | | | | | | | AND B | | | | | + +--------+ +--------+ +---------+ | [employer] | MODA | [id number] | Medica | [phone] | | MEDICAID HMO | HEALTH | | id | [id number] | | | | MDCD | | | | | | | HMO [place] | | | | | + +--------+ +--------+ +---------+ + +--------+ +--------+ + + | Guarantor Name | Accoun | Relation to | Date | Phone | Billing Address | | | t Type | Patient | of | | | | | | | | | | + +--------+ +--------+ + + | BELINDA MEEHAN | Person | Self [birth year] Home: | [address] | | | al/Fam | | 1960 | [phone] | [place] [address] | | | bijan | | | [phone] | | + +--------+ +--------+ + +
--- OUTSIDE RECORDS SUMMARY | ~2018-03-05 | XMS | Encounter Summary ---
Demographics + + + | Address | [address] | | | [place] [address] | + + + | Home Phone [...] + + | 02/18/ | Telephone | [facility] | Alanis, | Results | | 2018 | | MEDICINE [address] [place] [address] | MD [place] | | | | | [facility] | [address] [place] [address] | | | | | [place] [address] | [place] [address] | | | | | [phone] | [phone] | | | | | | | [...] | | | | | [address] [facility] | | | | | | [place] [address] | | | | | | [phone] | | | | | | | | +--------+---------+ + + + | 04/26/ | Office | Orthopedic Surgery | Alanis, | | | 2018 | Visit | | MD Petrona | | | | | | [address] | | | | | | [place] [address] | | | | | | [phone] | | | | | | | | | | | | Lc Vail MD | | | | | | [address] [place] | | | | | | [place] | | | | | | [address] | | | | | | [phone] | | | | | | | | +--------+---------+ + + + as of this encounter Visit Diagnoses Not on filein this encounter"
--- OUTSIDE RECORDS SUMMARY | ~2018-03-05 | XMS | Encounter Summary ---
Demographics + + + | Address | [address] | | | [place] [address] | + + + | Home Phone [...] Providers + +------+ + | Care Battery Recharger Name | Role | Phone | + [...] + + | 12/10/ | Telephone | [facility] | Alanis, | Lab Results | | 2017 | | MEDICINE [address] [place] [address] | MD [place] | | | | | [facility] | [address] [place] [address] | | | | | [place] [address] | [place] [address] | | | | | [phone] | [phone] | | | | | | | [...] | | | | | [place] [address] | | | | | | [phone] | | | | | | | | +--------+---------+ + + + | 04/26/ | Office | Orthopedic Surgery | Emmy-Kamlesh, | | | 2017 | Visit | | MD [place] | | | | | | [address] | | | | | | [place] [address] | | | | | | [phone] | | | | | | | | | | | | Lc Vail MD | | | | | | [address] | | | | | | [place] | | | | | | [address] | | | | | | [phone] | | | | | | | | +--------+---------+ + + + as of this encounter Visit Diagnoses Not on filein this encounter"
--- OUTSIDE RECORDS SUMMARY | ~2018-03-05 | XMS | Encounter Summary ---
Demographics + + + | Address | [address] | | | [place] [address] | + + + | Home Phone [...] Providers + +------+ + | Care Assistant In Nursing Name | Role | Phone | + +------+ + | Petrona Thapa | PCP | | | MD | | | + +------+ + Encounter Details +--------+---------+ + + + | Date | Type | Department | Care Team | Description | +--------+---------+ + + + | 12/18/ | Surgery | [facility] | Luther Brito MD | EGD | | 2018 | | MED CTR [facility] OP | [address] | | | | | [address] | [address] | | | | | [place], [place] | [place] [address] | | | | | [address] | [phone] | | | | | [phone] | | | +--------+---------+ + + + [...] | Blood Pressure | 115/75 | 12/18/2017 1230 PDT | + + + + | Pulse | 83 | 12/18/20171229 PDT | + + + + | Temperature | 36.5 C (97.7 F) | 12/18/2017 1201 PDT | + + + + | Respiratory Rate | 15 | 12/18/2017 1230 PDT | + + + + | Oxygen Saturation | 97% | 12/18/2017 1230 PDT | + + + + | Inhaled Oxygen | - | - | | Concentration | | | + + + + | Weight | 102.8 kg (226 lb | 12/18/2017913 PDT | | | 10.1 oz) | | + + + + | Height | 172.7 cm (5' 8") | 12/18/2017913 PDT | + + + + | Body Mass Index | 34.46 | 12/18/2017913 PDT | + + + + in this encounter Discharge Instructions Mary Jane Grant RN - 12/18/2017 [...] You can't be awakened Date Last Reviewed: 04/01/201619996964-3594 [employer]. [address] [place] [address]. All righ ts reserved. This information is not intended as a substitute for professional medical care. Always follow your healthcare professional's instructions. in this encounter Medications at Time of [...] | | | | | [place] [address] | | | | | | [phone] | | | | | | | | +--------+---------+ + + + | 04/26/ | Office | Orthopedic Surgery | Alanis, | | | 2017 | Visit | | MD Petrona | | | | | | [address] | | | | | | [place] [address] | | | | | | [phone] | | | | | | | | | | | | Lc Vail MD | | | | | | [address] | | | | | | [place] | | | | | | [address] | | | | | | [phone] | | | | | | | [...] + + + in this encounter Results EGD (12/18/2017 1049) + + ---+ | Narrative | Performed At | + + ---+ | | [facility] | | GastroenterologyPatient Name: Belinda BrittonsProcedure Date: 12/18/2017 | [facility] | | 10:49 AMMRN: [id number] #: [id number] of : | | | 9Admit Type: AmbulatoryAge: 57Room: [facility] 01Gender: FemaleNote | | | Status: FinalizedAttending MD: Luther Brito , | | | MDProcedure: Upper GI | | | endoscopyIndications: Generalized abdominal pain, | | | Heartburn, Suspected esophageal | | | reflux, DiarrheaProviders: Luther Brito MD, | | | Maris Epperson RN, Tal Diaz, | | | [facility], Ruben Kumar MD | | | (Anesthesia [...] the anesthesiologist | | | and the pharmacy technician per diem in the pre-procedure area in the procedure [...] This was | | | traversed. The tgtep-iz-ztybgoz limb was characterized by healthy | | | appearing mucosa. The jejunojejunal anastomosis was | | | characterized by healthy appearing mucosa. The | | | tgpumasa-zx-lawalhe limb was not examined as it could [...] Scope In: 11:00:36 AMScope Out: 11:08:34 AM [place] | | | [facility], [address] [place] [address] | | | [id number] | | |Luther Brito MD | | |12/18/2017 11:59:34 AM | | |This report has been signed electronically. | | |Number of Addenda: 0 | | |Note Initiated On: 12/18/2017 10:49 AM | | |Total Procedure Duration: 0 hours 7 minutes 58 seconds | | |Scope In: 11:00:36 AM | | |Scope Out: 11:08:34 AM | | | [facility], [address] [place] [address] | | | [address] | | + + ---+ + +---------+ [...] 12/18/2017 | [facility] | | 10:43 AMMRN: [id number] #: [id number] of : | | | 1960dmit Type: AmbulatoryAge: 57Room: [facility] 01Gender: FemaleNote | | | Status: FinalizedAttending MD: Luther Brito , | | | MDProcedure: ColonoscopyIndications: | | | Generalized abdominal pain, Chronic diarrheaProviders: | | | Luther Brito MD, Maris Epperson RN, Tal Diaz, | | | [facility], Ruben Kumar MD | | | (Anesthesia [...] the anesthesiologist | | | and the pharmacy technician per diem in the pre-procedure area in the procedure [...] | | 11:12:28 AMScope Out: 11:56:[address] [facility] | | | [place], [address] [place] [address] | | | - Return to GI [...] |Scope Out: 11:56:57 AM | | | [facility], [address] [place] [address] | | | [address] | | + + ---+ + +---------+ [...] for specific diagnostic | | | abnormality. JVR:[facility]:C2NR GROSS DESCRIPTION: Received in five | | [...] Submitted | | | all in (E1). sharan:MARTIN:samantha PERFORMING LABORATORY: Tissue processing | | | and slide preparation were performed by [facility], [address], [place] [address] (Flow Trader: Stephen Jacobson M.D. CLIA#: [id number]). Professional interpretation was | | | performed by [facility], [facility] | | | Branch, [address] [place] [address] (Medical | | | Director: Stephen Jacobson M.D.; CLIA#: [id number]). | | | Diagnostician: Stephen Jacobson MD Pathologist Electronically | | | Signed 12/21/2017 | | + + + + +---------+ + + | Performing | Address | City/State/[facility] Centercode | Phone Number | | Organization | | | | + +---------+ + + | [facility] | | | | | [employer] | | | | + +---------+ + + in this encounter Visit Diagnoses Not on filein this encounter Admitting Diagnoses + + | Diagnosis | + + | Chronic diarrhea (K52.9), S/P gastric bypass (Z98.84), Diarrhea, unspecified type | | (R19.7), Gastroesophageal reflux disease, esophagitis presence not specified (K21.9), | | History of gastric ulcer (Z87.19), Abdominal pain, unspecified abdominal location (R10. | + + | 9), Narcotic dependence (HCC) (F11.20), Obesity (BMI 30.0-34.9) (E66.9) | + + Administered Medications + +--------+---------+------+------+------+ | Medication Order [...] | | | 1 dose, RT will administer. | | + +---+ | | | [...] or COPD | | | or current smoking. | | + +---+ | | | [...] once | | | blood glucose > 70. | | + +---+ | | | [...] | | | once blood glucose > 70. | | + +---+ | | | [...] | hydromorphone if morphine | | | ineffective. | | + +---+ | | | + +---+ + +---------+ +---+-------+---+ | lactated ringers (LR) infusion | New Bag | 12/18/2017 | | 100 | | | at 100 mL/hr, Intravenous, | | 9:28 | | mL/hr | | | CONTINUOUS, Starting Thu12/18/17 | | PDT | | | | | at 0930, Pre-op | | | | | | + +---------+ +---+-------+---+ +---------+ +---+---+---+ | New Bag | 12/18/2017 | | | | | | 11:59 | | | | | | PDT | | | | +---------+ +---+---+---+ + +---+ | | | + +---+ | ondansetron (ZOFRAN ODT) | | | disintegrating tablet 4 mg 4 mg, | | | Oral, EVERY 6 HOURS PRN, Nausea, | | | Vomiting, Starting Thu12/18/17 at | | | 1223, First line agent | | + +---+ | | | + +---+ | ondansetron (ZOFRAN) injection | | | 4 mg 4 mg, Intravenous, ONCE | | | PRN, Nausea, Starting 12/18/17 | | | at 1223, For 1 [...] status or unable to | | | tolerate. | | + +---+ | | | [...] | | | first if both are ordered. | | + +---+ | | | + +---+ in this encounter
--- OUTSIDE RECORDS SUMMARY | ~2018-03-05 | XMS | Encounter Summary ---
Demographics + + + | Address | [address] | | | [place] [address] | + + + | Home Phone [...] Providers + +------+ + | Care Lead Business Analyst Name | Role | Phone | [...] + + | 01/05/ | Telephone | [facility] | Luther Brito MD | Results | | 2017 | | GASTROENTEROLOGY | [address] | | | | | [address] [place] | [address] | | | | | [address] [place], [place] | [place] [address] | | | | | [address] | [phone] | | | | | [phone] | | | +--------+ + + + [...] | | | | | [place] [address] | | | | | | [phone] | | | | | | | | +--------+---------+ + + + | 04/26/ | Office | Orthopedic Surgery | Alanis, | | | 2018 | Visit | | MD Petrona | | | | | | [address] [place] | | | | | | [place] [address] | | | | | | [phone] | | | | | | | | | | | | Lc Vail MD | | | | | | [address] [place] | | | | | | [place] | | | | | | [address] | | | | | | [phone] | | | | | | | | +--------+---------+ + + + as of this encounter Visit Diagnoses Not on filein this encounter"
--- OUTSIDE RECORDS SUMMARY | ~2018-03-05 | XMS | Encounter Summary ---
Demographics + + + | Address | [address] | | | [place] [address] | + + + | Home Phone [...] Team Providers + +------+ + | Care Aluminum Siding Applicator Name | Role | Phone | + [...] | | | | | [address] | | | | | | [place] | | | | | | [address] | | | | | | [phone] | | | +--------+ + + + [...] | | | | | [place] [address] | | | | | | [phone] | | | | | | | | +--------+---------+ + + + | 04/26/ | Office | Orthopedic Surgery | Alanis, | | | 2017 | Visit | | MD Petrona | | | | | | [address] | | | | | | [place] [address] | | | | | | [phone] | | | | | | | | | | | | Lc Vail MD | | | | | | [address] | | | | | | [place] | | | | | | [address] | | | | | | [phone] | | | | | | | | +--------+---------+ + + + as of this encounter Visit Diagnoses Not on filein this encounter"
--- OUTSIDE RECORDS SUMMARY | ~2018-03-05 | XMS | Encounter Summary ---
Demographics + + + | Address | [address] | | | [place] [address] | + + + | Home Phone [...] Team Providers + +------+ + | Care Sizer Machine Name | Role | Phone | [...] + + | 01/05/ | Telephone | [facility] | Luther Brito MD | Results | | 2017 | | GASTROENTEROLOGY | [address] | | | | | [address] [place] | [address] | | | | | [address] [place], [place] | [place] [address] | | | | | [address] | [phone] | | | | | [phone] | | | +--------+ + + + [...] | | | | | [place] [address] | | | | | | [phone] | | | | | | | | +--------+---------+ + + + | 04/26/ | Office | Orthopedic Surgery | Alanis, | | | 2018 | Visit | | MD [place] | | | | | | [address] [place] | | | | | | [place] [address] | | | | | | [phone] | | | | | | | | | | | | Lc Vail MD | | | | | | [address] [place] | | | | | | [place] | | | | | | [address] | | | | | | [phone] | | | | | | | | +--------+---------+ + + + as of this encounter Visit Diagnoses Not on filein this encounter"
--- OUTSIDE RECORDS SUMMARY | ~2018-03-05 | XMS | Encounter Summary ---
Demographics + + + | Address | [address] | | | [place] [address] | + + + | Home Phone [...] Providers + +------+ + | Care Sales Engineer Account Manager Name | Role | Phone [...] | | | | | [address] | | | | | | [place] | | | | | | [address] | | | | | | [phone] | | | +--------+ + + + [...] | | | | | [place] [address] | | | | | | [phone] | | | | | | | | +--------+---------+ + + + | 04/26/ | Office | Orthopedic Surgery | Alanis, | | | 2017 | Visit | | MD Petrona | | | | | | [address] | | | | | | [place] [address] | | | | | | [phone] | | | | | | | | | | | | Lc Vail MD | | | | | | [address] | | | | | | [place] | | | | | | [address] | | | | | | [phone] | | | | | | | | +--------+---------+ + + + as of this encounter Visit Diagnoses Not on filein this encounter"
--- OUTSIDE RECORDS SUMMARY | ~2018-03-05 | XMS | Clinical Summary ---
Demographics + + + | Address | [address] | | | [place] [address] [...] + +------+ + | Care Epic Ambulatory Analyst Name | Role | Phone | + +------+ + | Sulaiman Carrera MD | PP | Unavailable | + +------+ + Source Comments MARK is fully live on both EpicCare Ambulatory and EpicCare InPatient.[facility] Allergies + + + + + [...] + + + + + + | Grhiuvs-Kkmmfpqwzl-J | | | 08/29/19 | Balance problems [...] in | | | | | | [facility]) | | | | | | [...] | imbalances, sleep apnea, neck pain, medication [id number] | + + + + + | [...] | | | | | | [place], [place] | | | | | | [address] | | | | | | [phone] | | | | | | | [...] | re | [address] | [place] [address] | | | B | | | | | + +--------+ +--------+ + + | CONTRACT ADMINISTRATIVE ASSISTANT MEDICAID | CONTRACT ADMINISTRATIVE ASSISTANT | xxxxxxxx | Medica | | | [...] | 9 | [phone]- | [place] [address] | | | bijan | | | 8583 | | + +--------+ +--------+ + + | BELINDA MEEHAN | Medica | Self | [birth year] | Home: | [address] | | | re | | 1959 | +- | [place] [address] | | | Recurr | | | 8583 | | | | ing | | | | | + +--------+ +--------+ + +
--- OUTSIDE RECORDS SUMMARY | ~2018-03-05 | XMS | Encounter Summary ---
Demographics + + + | Address | [address] | | | [place] [address] | + + + | Home Phone [...] Providers + +------+ + | Care Manager Fire Name | Role | Phone | + [...] + + | 02/18/ | Refill | [facility] | Alanis, | Results, Imaging | | 2017 | | MEDICINE [address] | MD [place]ron[place] | | | | | [place] | [address] [place] [address] | | | | | [place] [address] | [place] [address] | | | | | [phone] | [phone] | | | | | | | [...] | | | | | [place] [address] | | | | | | [phone] | | | | | | | | +--------+---------+ + + + | 04/26/ | Office | Orthopedic Surgery | Alanis, | | | 2017 | Visit | | MD [place] | | | | | | [address] | | | | | | [place] [address] | | | | | | [phone] | | | | | | | | | | | | Lc Vail MD | | | | | | [address] [place] | | | | | | [place], [place] | | | | | | [address] | | | | | | [phone] | | | | | | | | +--------+---------+ + + + as of this encounter Visit Diagnoses Not on filein this encounter"
--- OUTSIDE RECORDS SUMMARY | ~2018-03-05 | XMS | Encounter Summary ---
Demographics + + + | Address | [address] | | | [place] [address] | + + + | Home Phone [...] Team Providers + +------+ + | Care Dried Fruit Washer Name | Role | Phone | [...] + + | 02/17/ | Clinical | [facility] | Alanis, | Vitamin B12 | | 2018 | Support | MEDICINE [address] [place] [address] | MD [place]rona | deficiency | | | | [facility] | [address] [place] [address] | | | | | [place] [address] | [place] [address] | | | | | [phone] | [phone] | | | | | | | [...] | | | | | | [address] [place] [address] [place] | | | | | | [place] [address] | | | | | | [phone] | | | | | | | | +--------+---------+ + + + | 04/26/ | Office | Orthopedic Surgery | Alanis, | | | 2017 | Visit | | MD [place] | | | | | | [address] | | | | | | [place] [address] | | | | | | [phone] | | | | | | | | | | | | Lc Vail MD | | | | | | [address] | | | | | | [place] | | | | | | [address] | | | | | | [phone] | | | | | | | [...] | | | | First dose on [facility] 10/15/17 at 1215 | | | [...]
--- OUTSIDE RECORDS SUMMARY | ~2018-03-05 | XMS | Encounter Summary ---
Demographics + + + | Address | [address] | | | [place] [address] | + + + | Home Phone [...] Team Providers + +------+ + | Care Workers Compensation Administrator Name | Role | Phone | [...] + + | 01/01/ | Refill | [facility] | [place], | Medication Refill | | 2017 | | MEDICINE [address] [place] [address] | MD Petrona | | | | | [facility] | [address] [place] [address] | | | | | [place] [address] | [place] [address] | | | | | [phone] | [phone] | | | | | | | [...] | | | | | [place] [address] | | | | | | [phone] | | | | | | | | +--------+---------+ + + + | 04/26/ | Office | Orthopedic Surgery | Alanis, | | | 2017 | Visit | | MD Petrona | | | | | | [address] [facility] | | | | | | [place] [address] | | | | | | [phone] | | | | | | | | | | | | Lc Vail MD | | | | | | [address] [place] | | | | | | [place] | | | | | | [address] | | | | | | [phone] | | | | | | | | +--------+---------+ + + + as of this encounter Visit Diagnoses Not on filein this encounter"
--- OUTSIDE RECORDS SUMMARY | ~2018-03-05 | XMS | Clinical Summary ---
Demographics + + + | Address | [address] | | | [place] [address] | + + + | Home Phone [...] Team Providers + +------+ + | Care Zig Zag Stitcher Name | Role | Phone | [...] + + + + + + | Rdsglaniez-Thwp-Eyji | Hives, Rash | Low | 10/11/20 [...] + | 01/14/ | Refill | | [place]is, | Medication Refill | | 2017 | [...] | | | | | [place] [address] | | | | | | [phone] | | | | | | | | +--------+---------+ + + + | 04/26/ | Office | | Alanis, | | | 2017 | Visit | | MD Petrona | | | | | | [address] | | | | | | [place] [address] | | | | | | [phone] | | | | | | | | | | | | Lc Vail MD | | | | | | [address] | | | | | | [place] | | | | | | [address] | | | | | | [phone] | | | | | | | [...] JEFF HOROWITZ | | | | | [facility] | | | | | [place] - | | | | | LABORATORY | + +-------+ + + + + | Specimen | + + | Blood | + + + + + + + | Performing | Address | City/State/Zipcode | Phone Number | | Organization | | | | + + + + + | [facility] | [address] | [place], [place] | [phone] | | [facility] | | [address] | | | - LABORATORY | | | | + + + + + | [facility] | [address] | [place], [place] | | | [facility] | | [address] | | | - LABORATORY | | [...] + | [facility] | [address] | [place] | [phone] | | [facility] | | [address] | | | - LABORATORY | | | | + + + + + | [facility] | [address] | [place] | | | [facility] | | [address] | | | - LABORATORY | | [...] ST. | | Serum/Plasma | | | [facility] | | | | | CENTER - | | | | | LABORATORY | + + + + + | eGFR if not | >60Comment: GLOMERULAR | >=60 mL/min/1.73m2 | [facility] | | INDIAN | FILTRATION | | [facility] | | | RATE,ESTIMATED mL/min | | CENTER - | | | /1.46p8Hywe than 60 | | LABORATORY | | [...] [facility] | | | | | [facility] | | | | | CENTER [...] ST. | | ratio | | | [facility] | | | | | CENTER - | | | | | LABORATORY | + + + + + | JENNY/BRE | 10.8 | | [facility] | | | | | [facility] | | | | | CENTER [...] [address] | [place] | [phone] | | [facility] | | [address] | | | - LABORATORY | | | | + + + + + | [facility] | [address] | [place], [place] | | | [facility] | | [address] | | | - LABORATORY | | [...] + + | Performing | Address | City/State/[facility]code | Phone Number | | Organization [...] 12/18/2017 | [facility] | | 10:49 AMMRN: [id number] #: [id number] of : | | | 9Admit Type: AmbulatoryAge: 57Room: [facility] 01Gender: FemaleNote | | | Status: FinalizedAttending MD: Luther Brito , | | | MDProcedure: Upper GI | | | endoscopyIndications: Generalized abdominal pain, | | | Heartburn, Suspected esophageal | | | reflux, DiarrheaProviders: Luther Brito MD, | | | Maris Epperson RN, Tal Diaz, | | | [facility], Ruben Kumar MD | | | (Anesthesia [...] the anesthesiologist | | | and the mechanic sound technician in the pre-procedure area in the [...] This was | | | traversed. The bblfz-rg-vvkpsbm limb was characterized by healthy | | | appearing mucosa. The jejunojejunal anastomosis was | | | characterized by healthy appearing mucosa. The | | | lbfwyuww-ds-jytpjeq limb was not examined as it could [...] Scope In: 11:00:36 AMScope Out: 11:08:34 AM [place] | | | [facility], [address], [place] | | | [address] | | |Luther Brito MD | | |12/18/2017 11:59:34 AM | | |This report has been signed electronically. | | |Number of Addenda: 0 | | |Note Initiated On: 12/18/2017 10:49 AM | | |Total Procedure Duration: 0 hours 7 minutes 58 seconds | | |Scope In: 11:00:36 AM | | |Scope Out: 11:08:34 AM | | | [facility], [address] [facility], [place], [place] | | | [address] | | + + ---+ + +---------+ [...] 12/18/2017 | [place] | | 10:43 AMMRN: [id number] #: [id number] of : | | | 9Admit Type: AmbulatoryAge: 57Room: [facility] 01Gender: FemaleNote | | | Status: FinalizedAttending MD: Luther Brito , | | | MDProcedure: ColonoscopyIndications: | | | Generalized abdominal pain, Chronic diarrheaProviders: | | | Luther Brito MD, Maris Epperson RN, Tal Diaz, | | | [facility], Ruben Kumar MD | | | (Anesthesia [...] the anesthesiologist | | | and the mechanic sound technician in the pre-procedure area in the [...] [facility] | | | [place], [address] [place] [address] | | | - Return to GI [...] |Scope Out: 11:56:57 AM | | | [facility], [address] [facility], [place], [place] | | | [address] | | + + ---+ + +---------+ + + | Performing | Address | City/State/[facility] Hospitalcode | Phone Number | | Organization [...] for specific diagnostic | | | abnormality. JVR:[facility]:C2NR GROSS DESCRIPTION: Received in five | | [...] | and slide preparation were performed by [facility], [address] | | [facility], [address], [place] [address] (Lehr Operator: Stephen | | | Joanna Jacobson IA#: [id number]). Professional interpretation was | | | performed by [facility], [facility] | | | Branch, [address] [facility], [place] [address] (Medical | | | Director: Stephen Jacobson M.D.; EWA#: [id number]). | | | Diagnostician: Stephen Jacobson MD [...] Amplification test | | | | | ([id number]). | | | + + + + + + + | Specimen | + + | Blood | + + + + + | Narrative | Performed At | + + + | Performed at: 01 - [facility] [address], | REFERENCE LAB | | [place], [place] [id number] Derrick Boat Leverman: Bandar Gan MD, | MARIANNA ROY | | Phone: [phone] | | + + + + + + + + | Performing | Address | City/State/Zipcode | Phone Number | | Organization | | | | + + + + + | [facility] | [address] | [place], [place] [address] | [phone] | | MARIANNA - MANUELA | Asha [...] + | [facility] | [address] | [place] | [phone] | | [facility] | | [address] | | | - LABORATORY | | | | + + + + + | [facility] | [address] | [place], [place] | | | [facility] | | [address] | | | - LABORATORY | | | | + + + + + Magnesium (12/10/2017 1030) + +-------+ + + | Component | Value | Ref Range | Performed At | + +-------+ + + | MG | 2.4 | 1.8 - 2.5 mg/dL | [facility] | | | | | [facility] | | | | | CENTER - | | | | | LABORATORY | + +-------+ + + + + | Specimen | + + | Blood | + + + + + + + | Performing | Address | City/State/Zipcode | Phone Number | | Organization | | | | + + + + + | [facility] | [address] | [place] | [phone] | | [facility] | | [address] | | | - LABORATORY | | | | + + + + + | [facility] | [address] | [place] | | | [facility] | | [address] | | | - LABORATORY | | [...] +--------+ +---------+ | MEDICARE | MEDICA | [id number] | Medica | +- | | | | RE | | re | [phone] | | | | PART A | | | | | | | AND B | | | | | + +--------+ +--------+ +---------+ | [employer] | MODA | [id number] | Medica | [phone] | | | MEDICAID HMO | HEALTH [...] 1960 | [phone] | [place] [address] | | | bijan | | | [phone] | | + +--------+ +--------+ + +
--- OUTSIDE RECORDS SUMMARY | ~2018-03-05 | XMS | Encounter Summary ---
Demographics + + + | Address | [address] | | | [place] [address] | + + + | Home Phone [...] Team Providers + +------+ + | Care Engineering Illustrator Name | Role | Phone | + +------+ + | Petrona Thapa | PCP | | | MD | | | + +------+ + Encounter Details +--------+---------+ + + + | Date | Type | Department | Care Team | Description | +--------+---------+ + + + | 12/18/ | Surgery | [facility] | Luther Brito MD | EGD | | 2018 | | MED CTR [facility] IN[facility] OP | [address] | | | | | [address] | [address] [place] | | | | | [place], [place] | [place] [address] | | | | | [address] | [phone] | | | | | [phone] | | | +--------+---------+ + + + [...] You can't be awakened Date Last Reviewed: 04/01/201619991439-4444 [employer]. [address] [place] [address]. All righ ts reserved. This information is [...] | | | | | [place] [address] | | | | | | [phone] | | | | | | | | +--------+---------+ + + + | 04/26/ | Office | Orthopedic Surgery | Alanis, | | | 2017 | Visit | | MD Petrona | | | | | | [address] | | | | | | [place] [address] | | | | | | [phone] | | | | | | | | | | | | Lc Vail MD | | | | | | [address] | | | | | | [place] | | | | | | [address] | | | | | | [phone] | | | | | | | [...] 12/18/2017 | [facility] | | 10:49 AMMRN: [id number] #: [id number] of : | | | 9Admit Type: AmbulatoryAge: 57Room: [facility] 01Gender: FemaleNote | | | Status: FinalizedAttending MD: Luther Brito , | | | MDProcedure: Upper GI | | | endoscopyIndications: Generalized abdominal pain, | | | Heartburn, Suspected esophageal | | | reflux, DiarrheaProviders: Luther Brito MD, | | | Maris Epperson RN, Tal Diaz, | | | [facility], Ruben Kumar MD | | | (Anesthesia [...] the anesthesiologist | | | and the nanotechnician in the pre-procedure area in the procedure [...] This was | | | traversed. The gfncr-js-bvyqgxu limb was characterized by healthy | | | appearing mucosa. The jejunojejunal anastomosis was | | | characterized by healthy appearing mucosa. The | | | wmcuwtkc-jj-absdbzt limb was not examined as it could [...] Scope In: 11:00:36 AMScope Out: 11:08:34 AM [place] | | | [facility], [address] [place] [address] | | | [address] | | |Luther Brito MD | | |12/18/2017 11:59:34 AM | | |This report has been signed electronically. | | |Number of Addenda: 0 | | |Note Initiated On: 12/18/2017 10:49 AM | | |Total Procedure Duration: 0 hours 7 minutes 58 seconds | | |Scope In: 11:00:36 AM | | |Scope Out: 11:08:34 AM | | | [facility], [address] [place] [address] | | | [address] | | + + ---+ + +---------+ [...] 12/18/2017 | [facility] | | 10:43 AMMRN: [id number] #: [id number] of : | | | 1960dmit Type: AmbulatoryAge: 57Room: [facility] 01Gender: FemaleNote | | | Status: FinalizedAttending MD: Luther Brito , | | | MDProcedure: ColonoscopyIndications: | | | Generalized abdominal pain, Chronic diarrheaProviders: | | | Luther Brito MD, Maris Epperson RN, Tal Diaz, | | | [facility], Ruben Kumar MD | | | (Anesthesia [...] the anesthesiologist | | | and the nanotechnician in the pre-procedure area in the procedure [...] | | 11:12:28 AMScope Out: 11:56:57 AM [facility] | | | [place], [address] [place] [address] | | | - Return to GI [...] |Scope Out: 11:56:57 AM | | | [facility], [address] [place] [address] | | | [address] | | + + ---+ + +---------+ [...] for specific diagnostic | | | abnormality. JVR:[place]:C2NR GROSS DESCRIPTION: Received in five | | [...] | and slide preparation were performed by [facility], [address] | [address], [place] [address] (Clock And Watch Hands Painter: Stephen Jacobson M.D. CLIA#: [id number]). Professional interpretation was | | | performed by [facility], [facility] | | | Branch, [address] [place] [address] (Medical | | | Director: Stephen Jacobson M.D.; CLIA#: [id number]). | | | Diagnostician: Stephen Jacobson MD Pathologist Electronically | | | Signed 12/21/2017 | | + + + + +---------+ + + | Performing | Address | City/State/[facility] Mexicocode | Phone Number | | Organization | | | | + +---------+ + + | [facility] | | | | | [facility] | | | | + +---------+ + [...]
--- OUTSIDE RECORDS SUMMARY | ~2018-03-05 | XMS | Encounter Summary ---
Demographics + + + | Address | [address] | | | [place] [address] | + + + | Home Phone [...] Team Providers + +------+ + | Care Manual Equipment Mechanic Name | Role | Phone [...] + | 03/04/ | Telephone | [facility] | [place]is, | Fever | | 2018 | | MEDICINE [address] [place] [address] | MD Petrona | | | | | [facility] | [address] [place] [address] | | | | | [place] [address] | [place] [address] | | | | | [phone] | [phone] | | | | | | | [...] | | | | | [address] | | | | | | [place] [address] | | | | | | [phone] | | | | | | | | +--------+---------+ + + + | 04/26/ | Office | Orthopedic Surgery | Alanis, | | | 2018 | Visit | | MD Petrona | | | | | | [address] | | | | | | [place] [address] | | | | | | [phone] | | | | | | | | | | | | Lc Vail MD | | | | | | [address] [place] | | | | | | [place] | | | | | | [address] | | | | | | [phone] | | | | | | | | +--------+---------+ + + + as of this encounter Visit Diagnoses Not on filein this encounter"
--- OUTSIDE RECORDS SUMMARY | ~2018-03-05 | XMS | Encounter Summary ---
Demographics + + + | Address | [address] | | | [place] [address] | + + + | Home Phone [...] Team Providers + +------+ + | Care Computational Physicist Name | Role | Phone | + [...] + + | 01/04/ | Telephone | [facility] | Alanis, | Skin Irritation | | 2017 | | MEDICINE [address] [place] [address] | MD Petrona | | | | | [facility] | [address] [place] [address] | | | | | [place] [address] | [place] [address] | | | | | [phone] | [phone] | | | | | | | [...] | | | | | [place] [address] | | | | | | [phone] | | | | | | | | +--------+---------+ + + + | 04/26/ | Office | Orthopedic Surgery | Emmy-Kamlesh, | | | 2017 | Visit | | MD Petrona | | | | | | [address] [facility] | | | | | | [place] [address] | | | | | | [phone] | | | | | | | | | | | | Lc Vail MD | | | | | | [address] [place] | | | | | | [place], [place] | | | | | | [address] | | | | | | [phone] | | | | | | | | +--------+---------+ + + + as of this encounter Visit Diagnoses + + | Diagnosis | + + | Tinea cruris - Primary | + + | Dermatophytosis of groin and perianal area | + +"
--- OUTSIDE RECORDS SUMMARY | ~2018-03-05 | XMS | Encounter Summary ---
Demographics + + + | Address | [address] | | | [place] [address] | + + + | Home Phone [...] Providers + +------+ + | Care District Wildlife Manager Name | Role | Phone | [...] Refill | | 2017 | | MEDICINE [address] [place] [address] | MD Petrona | | | | | [facility] | [address] [place] [address] | | | | | [place] [address] | [place] [address] | | | | | [phone] | [phone] | | | | | | | [...] | | | | | [place] [address] | | | | | | [phone] | | | | | | | | +--------+---------+ + + + | 04/26/ | Office | Orthopedic Surgery | Alanis, | | | 2017 | Visit | | MD Petrona | | | | | | [address] [facility] | | | | | | [place] [address] | | | | | | [phone] | | | | | | | | | | | | Lc Vail MD | | | | | | [address] [place] | | | | | | [place] | | | | | | [address] | | | | | | [phone] | | | | | | | | +--------+---------+ + + + as of this encounter Visit Diagnoses Not on filein this encounter"
--- OUTSIDE RECORDS SUMMARY | ~2018-03-05 | XMS | Clinical Summary ---
Demographics + + + | Address | [address] | | | [place] [address] | + + + | Home Phone [...] Providers + +------+ + | Care Quality Manager Name | Role | Phone [...] + + + + + + | Hxdznpnxce-Mjuq-Lunn | Hives, Rash | Low | 10/11/20 [...] | | | | | [place] [address] | | | | | | [phone] | | | | | | | | +--------+---------+ + + + | 04/26/ | Office | | Alanis, | | | 2017 | Visit | | MD Petrona | | | | | | [address] | | | | | | [place] [address] | | | | | | [phone] | | | | | | | | | | | | Lc Vail MD | | | | | | [address] | | | | | | [place] | | | | | | [address] | | | | | | [phone] | | | | | | | [...] [facility]FF [facility] | | | | | [facility] | | | | | [place] - | | | | | LABORATORY | + +-------+ + + + + | Specimen | + + | Blood | + + + + + + + | Performing | Address | City/State/Zipcode | Phone Number | | Organization | | | | + + + + + | [facility] | [address] | [place], [place] | [phone] | | [facility] | | [address] | | | - LABORATORY | | | | + + + + + | [facility] | [address] | [place], [place] | | | [facility] | | [address] | | | - LABORATORY | | [...] + | [facility] | [address] | [place] | [phone] | | [facility] | | [address] | | | - LABORATORY | | | | + + + + + | [facility] | [address] | [place] | | | [facility] | | [address] | | | - LABORATORY | | [...] ST. | | Serum/Plasma | | | [facility] | | | | | CENTER - | | | | | LABORATORY | + + + + + | eGFR if not | >60Comment: GLOMERULAR | >=60 mL/min/1.73m2 | [facility] | | YEMENI | FILTRATION | | [facility] | | | RATE,ESTIMATED mL/min | | CENTER - | | | /1.95h9Qejn than 60 | | LABORATORY | | [...] [facility] | | | | | [facility] | | | | | CENTER [...] ST. | | ratio | | | [facility] | | | | | CENTER - | | | | | LABORATORY | + + + + + | JENNY/BRE | 10.8 | | [facility] | | | | | [facility] | | | | | CENTER [...] [address] | [place] | [phone] | | [facility] | | [address] | | | - LABORATORY | | | | + + + + + | [facility] | [address] | [place], [place] | | | [facility] | | [address] | | | - LABORATORY | | [...] 12/18/2017 | [facility]OVATION | | 10:49 AMMRN: [id number] #: [id number] of : | | | 9Admit Type: AmbulatoryAge: 57Room: [facility] 01Gender: FemaleNote | | | Status: FinalizedAttending MD: Luther Brito , | | | MDProcedure: Upper GI | | | endoscopyIndications: Generalized abdominal pain, | | | Heartburn, Suspected esophageal | | | reflux, DiarrheaProviders: Luther Brito MD, | | | Maris Epperson RN, Tal Diaz, | | | [facility], Ruben Kumar MD | | | [...] the anesthesiologist | | | and the radio/tv technician in the pre-procedure area in the [...] This was | | | traversed. The usnjc-jv-uxwshww limb was characterized by healthy | | | appearing mucosa. The jejunojejunal anastomosis was | | | characterized by healthy appearing mucosa. The | | | kpgpzfjx-dx-vqwybey limb was not examined as it could [...] Scope In: 11:00:36 AMScope Out: 11:08:34 AM [place] | | | [facility], [address] [place], [place] | | | [address] | | |Luther Brito MD | | |12/18/2017 11:59:34 AM | | |This report has been signed electronically. | | |Number of Addenda: 0 | | |Note Initiated On: 12/18/2017 10:49 AM | | |Total Procedure Duration: 0 hours 7 minutes 58 seconds | | |Scope In: 11:00:36 AM | | |Scope Out: 11:08:34 AM | | | [facility], [address] [facility], [place], [place] | | | [address] | | + + ---+ + +---------+ [...] 12/18/2017 | [facility] | | 10:43 AMMRN: [id number] #: [id number] of : | | | 9Admit Type: AmbulatoryAge: 57Room: [facility] 01Gender: FemaleNote | | | Status: FinalizedAttending MD: Luther Brito , | | | MDProcedure: ColonoscopyIndications: | | | Generalized abdominal pain, Chronic diarrheaProviders: | | | Luther Brito MD, Maris Epperson RN, Tal Diaz, | | | [facility], Ruben Kumar MD | | | [...] the anesthesiologist | | | and the radio/tv technician in the pre-procedure area in the [...] | | 11:12:28 AMScope Out: 11:56:57 AM [facility] | | | [place], [address] [place] [address] | | | - Return to GI [...] |Scope Out: 11:56:57 AM | | | [facility], [address] [facility], [place], [place] | | | [address] | | + + ---+ + +---------+ [...] for specific diagnostic | | | abnormality. JVR:[facility]:C2NR GROSS DESCRIPTION: Received in five | [...] | and slide preparation were performed by [facility], [address] | | | [facility], [address], [place] [address] (Blaster Helper: Stephen | | | Joanna Jacobson [place]#: [id number]). Professional interpretation was | | | performed by [facility], [facility] | | | Branch, [address] [facility], [place] [address] (Medical | | | Director: Stephen Jacobson M.D.; EWA#: [id number]). | | | Diagnostician: Stephen Jacobson MD [...] Amplification test | | | | | ([id number]). | | | + + + + + + + | Specimen | + + | Blood | + + + + + | Narrative | Performed At | + + + | Performed at: 01 - [facility] [address], | REFERENCE LAB | | [place], [place] [id number] Private Branch Exchange Installer: Bandar Gan MD, | MARIANNA ROY | | Phone: [phone] | | + + + + + + + + | Performing | Address | City/State/Zipcode | Phone Number | | Organization | | | | + + + + + | [facility] | [address] | [place], [place] [address] | [phone] | | MARIANNA - MANUELA | Asha [...] + | [facility] | [address] | [place] | [phone] | | [facility] | | [address] | | | - LABORATORY | | | | + + + + + | [facility] | [address] | [place], [place] | | | [facility] | | [address] | | | - LABORATORY | | | | + + + + + Magnesium (12/10/2017 1030) + +-------+ + + | Component | Value | Ref Range | Performed At | + +-------+ + + | MG | 2.4 | 1.8 - 2.5 mg/dL | [facility] | | | | | [facility] | | | | | CENTER - | | | | | LABORATORY | + +-------+ + + + + | Specimen | + + | Blood | + + + + + + + | Performing | Address | City/State/Zipcode | Phone Number | | Organization | | | | + + + + + | [facility] | [address] | [place] | [phone] | | [facility] | | [address] | | | - LABORATORY | | | | + + + + + | [facility] | [address] | [place] | | | [facility] | | [address] | | | - LABORATORY | | [...] +--------+ +---------+ | MEDICARE | MEDICA | [id number] | Medica | +- | | | | RE | | re | [phone] | | | | PART A | | | | | | | AND B | | | | | + +--------+ +--------+ +---------+ | [employer] | MODA | [id number] | Medica | [phone] | | | MEDICAID HMO | HEALTH [...] 1960 | [phone] | [place] [address] | | | bijan | | | [phone] | | + +--------+ +--------+ + +
--- OUTSIDE RECORDS SUMMARY | ~2018-03-05 | XMS | Encounter Summary ---
Demographics + + + | Address | [address] | | | [place] [address] | + + + | Home Phone [...] Providers + +------+ + | Care Supervisor Rice Milling Name | Role | Phone | + +------+ + | Petrona Thapa | PCP | | | MD | | | + +------+ + Encounter Details +--------+ + + + + | Date | Type | Department | Care Team | Description | +--------+ + + + + | 12/18/ | Anesthesia | [facility] | Ruben Kumar | | | 2018 | Event | [facility] INTRA OP | MD [place] [address] | | | | | [address] | [facility] | | | | | [place] | [place] [address] | | | | | [address] | [phone] | | | | | [phone] | | | +--------+ + + + [...] Periph | 12/18/17; 928; Right; Forearm; | 12/18/17928 by | 12/18/17 1321 by | | lyssa | hgwv-qic-lonfvj catheter system; | HEMANT SANTOS | Lucy Aviles, | | IV | 20 gauge, 1 1/4 in length; | | RN | | | intradermal injection, tolerated | | | | | well; 12/18/17; 1321 | | | +--------+ + + + in this encounter Social History + + [...] | | | | | [place] [address] | | | | | | [phone] | | | | | | | | +--------+---------+ + + + | 04/26/ | Office | Orthopedic Surgery | Alanis, | | | 2017 | Visit | | MD Petrona | | | | | | [address] | | | | | | [place] [address] | | | | | | [phone] | | | | | | | | | | | | Lc Vail MD | | | | | | [address] | | | | | | [place] | | | | | | [address] | | | | | | [phone] | | | | | | | | +--------+---------+ + + + as of this encounter Visit Diagnoses Not on filein this encounter Administered Medications + +---------+ +------+-------+------+ | Medication Order | MAR | Action | Dose | Rate | Site | | | Action | Date | | | | + +---------+ +------+-------+------+ | lactated ringers (LR) infusion | New Bag | 12/18/2017 | | 100 | | | at 100 mL/hr, Intravenous, | | 9:28 | | mL/hr | | | CONTINUOUS, Starting 12/18/17 | | PDT | | | | | at 0930, Pre-op | | | | | | + +---------+ +------+-------+------+ +---------+ +---+---+---+ | New Bag | 12/18/2017 | | | | | | 11:59 | | | | | | PDT | | | | +---------+ +---+---+---+ +---+---+ | | | +---+---+ + +-------+ +--------+---+---+ | lidocaine (PF) 2% injection | Given | 12/18/2017 | 100 mg | | | | Intravenous, PRN, Starting Fri | | 10:57 | | | | | 12/18/17 at 1057, Anesthesia | | PDT | | | | | Intra-op | | | | | | + +-------+ +--------+---+---+ +---+---+ | | | +---+---+ + +-------+ +-------+---+---+ | propofol (DIPRIVAN) injection | Given | 12/18/2017 | 50 mg | | | | Intravenous, PRN, Starting Fri | | 10:57 | | | | | 12/18/17 at 1057, Anesthesia | | PDT | | | | | Intra-op | | | | | | + +-------+ +-------+---+---+ +---+---+ | | | +---+---+ + + + + +-------+---+ | propofol (DIPRIVAN) injection | Rate/Dos | 12/18/2017 | 180 | 111 | | | Intravenous, CONTINUOUS PRN, | e Change | 11:03 | mcg/kg/m | mL/hr | | | Starting 12/18/17 at 1057, | | PDT | in | | | | Anesthesia Intra-op | | | | | | + + + + +-------+---+ + + + +-------+---+ | Rate/Dose Change | 12/18/2017 | 160 | 98.7 | | | | 11:09 | mcg/kg/m | mL/hr | | | | PDT | in | | | + + + +-------+---+ | New Bag | 12/18/2017 | 100 | 61.7 | | | | 11:48 | mcg/kg/m | mL/hr | | | | PDT | in | | | + + + +-------+---+ +---+---+ | | | +---+---+ in this encounter"
--- OUTSIDE RECORDS SUMMARY | ~2018-03-05 | XMS | Encounter Summary ---
Demographics + + + | Address | [address] | | | [place] [address] | + + + | Home Phone [...] Team Providers + +------+ + | Care Realtime Captioner Name | Role | Phone | + [...] + + | 01/12/ | Refill | [facility] | Alanis, | Medication Refill | | 2017 | | MEDICINE [address] [place] [address] | MD Petrona | | | | | [facility] | [address] [place] [address] | | | | | [place] [address] | [place] [address] | | | | | [phone] | [phone] | | | | | | | [...] | | | | | [place] [address] | | | | | | [phone] | | | | | | | | +--------+---------+ + + + | 04/26/ | Office | Orthopedic Surgery | Alanis, | | | 2017 | Visit | | MD Petrona | | | | | | [address] [facility] | | | | | | [place] [address] | | | | | | [phone] | | | | | | | | | | | | Lc Vail MD | | | | | | [address] [place] | | | | | | [place] | | | | | | [address] | | | | | | [phone] | | | | | | | | +--------+---------+ + + + as of this encounter Visit Diagnoses Not on filein this encounter"
--- OUTSIDE RECORDS SUMMARY | ~2018-03-05 | XMS | Encounter Summary ---
Demographics + + + | Address | [address] | | | [place] [address] | + + + | Home Phone [...] Providers + +------+ + | Care Outsole Flexer Name | Role | Phone | + [...] + + | 02/01/ | Telephone | [facility] | Alanis, | Other (B12 shot) | | 2017 | | MEDICINE [address] [place] [address] | MD Petrona | | | | | [facility] | [address] [place] [address] | | | | | [place] [address] | [place] [address] | | | | | [phone] | [phone] | | | | | | | [...] | | | | | [place] [address] | | | | | | [phone] | | | | | | | | +--------+---------+ + + + | 04/26/ | Office | Orthopedic Surgery | Emmy-Kamlesh, | | | 2017 | Visit | | MD Petrona | | | | | | [address] [place] | | | | | | [place] [address] | | | | | | [phone] | | | | | | | | | | | | Lc Vail MD | | | | | | [address] [place] | | | | | | [place] | | | | | | [address] | | | | | | [phone] | | | | | | | | +--------+---------+ + + + as of this encounter Visit Diagnoses Not on filein this encounter"
--- OUTSIDE RECORDS SUMMARY | ~2018-03-05 | XMS | Encounter Summary ---
Demographics + + + | Address | [address] | | | [place] [address] | + + + | Home Phone [...] Providers + +------+ + | Care Motorcycle Delivery Driver Name | Role | Phone | + +------+ + | Petrona Thapa | PCP | | | MD | | | + +------+ + Encounter Details +--------+ + + + + | Date | Type | Department | Care Team | Description | +--------+ + + + + | 03/02/ | Hospital | [facility] | Alanis, | Neck pain on right | | 2018 | Encounter | [facility] | MD Petrona | side | | | | [address] [place] | [address] [place] | | | | | [place], [place] | [place] [address] | | | | | [address] | [phone] | | | | | [phone] | | | +--------+ + + + [...] [place] | | | | | | [place] [address] | | | | | | [phone] | | | | | | | | +--------+---------+ + + + | 04/26/ | Office | Orthopedic Surgery | Alanis, | | | 2017 | Visit | | MD Petrona | | | | | | [address] [place] | | | | | | [place] [address] | | | | | | [phone] | | | | | | | | | | | | Lc Vail MD | | | | | | [address] [place] | | | | | | [place] | | | | | | [address] | | | | | | [phone] | | | | | | | [...] + + in this encounter Results XR Cervical Spine 2 or 3 Views [...] + | Neck pain on right side | + + | Cervicalgia | + +"
--- OUTSIDE RECORDS SUMMARY | ~2018-03-05 | XMS | Encounter Summary ---
Demographics + + + | Address | [address] | | | [place] [address] | + + + | Home Phone [...] Team Providers + +------+ + | Care Photographer Helper Name | Role | Phone | [...] W | | | | | | [place], | | | | | | [place] [address] | | | | | | [phone] | | | +--------+ + + + [...] | | | | | [place] [address] | | | | | | [phone] | | | | | | | | +--------+---------+ + + + | 04/26/ | Office | Orthopedic Surgery | Alanis, | | | 2017 | Visit | | MD Petrona | | | | | | [address] [place] | | | | | | [place] [address] | | | | | | [phone] | | | | | | | | | | | | Lc Vail MD | | | | | | [address] [place] | | | | | | [place] | | | | | | [address] | | | | | | [phone] | | | | | | | | +--------+---------+ + + + as of this encounter Visit Diagnoses Not on filein this encounter"
--- OUTSIDE RECORDS SUMMARY | ~2018-03-05 | XMS | Encounter Summary ---
Demographics + + + | Address | [address] | | | [place] [address] | + + + | Home Phone [...] Providers + +------+ + | Care Licensed Funeral Director And Embalmer Name | Role | Phone | + [...] | | | | | laterality | [address] | [address] | | | | | Dysfunction | Phone: | Phone: | | | | | of left | [phone] | [phone] | | | | | eustachian | Fax: | Fax: | | | | | tube | [phone] | [phone] | + + + + + + [...] [place], | unspecified | | | | [place], [place] | [place] [address] | laterality (Primary | | | | [address] | [phone] | Dx); Dysfunction of | | | | [phone] | | left eustachian tube | +--------+ [...] | | | | | [place] [address] | | | | | | [phone] | | | | | | | | +--------+---------+ + + + | 04/26/ | Office | Orthopedic Surgery | Alanis, | | | 2017 | Visit | | MD Petrona | | | | | | [address] | | | | | | [place] [address] | | | | | | [phone] | | | | | | | | | | | | Lc Vail MD | | | | | | [address] | | | | | | [place], [place] | | | | | | [address] | | | | | | [phone] | | | | | | | [...]
--- OUTSIDE RECORDS SUMMARY | ~2018-03-05 | XMS | Encounter Summary ---
Demographics + + + | Address | [address] | | | [place] [address] | + + + | Home Phone [...] Providers + +------+ + | Care Auto Cleaner Name | Role | Phone | [...] + + | 01/04/ | Telephone | [facility] | Ulysses Genao MD | Other | | 2017 | | OTOLARYNGOLOGY [address] | [address] [facility] | | | | | [address] [facility] [address] | [address] [place], | | | | | [place], [place] | [place] [address] | | | | | [address] | [phone] | | | | | [phone] | | | +--------+ + + + [...] | | | | | [address] [place] | | | | | | [place] [address] | | | | | | [phone] | | | | | | | | +--------+---------+ + + + | 04/26/ | Office | Orthopedic Surgery | Alanis, | | | 2018 | Visit | | MD Petrona | | | | | | [address] | | | | | | [place] [address] | | | | | | [phone] | | | | | | | | | | | | Lc Vail MD | | | | | | [address] [place] | | | | | | [place] | | | | | | [address] | | | | | | [phone] | | | | | | | | +--------+---------+ + + + as of this encounter Visit Diagnoses Not on filein this encounter"
--- OUTSIDE RECORDS SUMMARY | ~2018-03-05 | XMS | Encounter Summary ---
Demographics + + + | Address | [address] | | | [place] [address] | + + + | Home Phone [...] Providers + +------+ + | Care Travel Occupational Therapist Name | Role | Phone [...] | | | | | [address] | [facility] | | | | | [place] | [place] [address] | | | | | [address] | [phone] | | | | | [phone] | | | +--------+ + + + [...] 12/18/17 1321 by | | lyssa | dmcs-lhx-vqetat catheter system; | HEMANT SANTOS | Lucy [...] | | | | | [place] [address] | | | | | | [phone] | | | | | | | | +--------+---------+ + + + | 04/26/ | Office | Orthopedic Surgery | Alanis, | | | 2017 | Visit | | MD Petrona | | | | | | [address] | | | | | | [place] [address] | | | | | | [phone] | | | | | | | | | | | | Lc Vail MD | | | | | | [address] | | | | | | [place] | | | | | | [address] | | | | | | [phone] | | | | | | | [...]
--- OUTSIDE RECORDS SUMMARY | ~2018-03-05 | XMS | Encounter Summary ---
Demographics + + + | Address | [address] | | | [place] [address] | + + + | Home Phone [...] Team Providers + +------+ + | Care Rewriter Name | Role | Phone | + [...] + + | 12/26/ | Refill | [facility] | Alanis, | Medication Refill | | 2017 | | MEDICINE [address] [place] [address] | MD Petrona | | | | | [facility] | [address] [place] [address] | | | | | [place] [address] | [place] [address] | | | | | [phone] | [phone] | | | | | | | [...] | | | | | [place] [address] | | | | | | [phone] | | | | | | | | +--------+---------+ + + + | 04/26/ | Office | Orthopedic Surgery | Alanis, | | | 2017 | Visit | | MD Petrona | | | | | | [address] [facility] | | | | | | [place] [address] | | | | | | [phone] | | | | | | | | | | | | Lc Vail MD | | | | | | [address] [place] | | | | | | [place] | | | | | | [address] | | | | | | [phone] | | | | | | | | +--------+---------+ + + + as of this encounter Visit Diagnoses Not on filein this encounter"
--- OUTSIDE RECORDS SUMMARY | ~2018-03-05 | XMS | Encounter Summary ---
Demographics + + + | Address | [address] | | | [place] [address] | + + + | Home Phone [...] Providers + +------+ + | Care Gold Charmer Name | Role | Phone | + +------+ + | Petrona Thapa | PCP | | | MD | | | + +------+ + Encounter Details +--------+ + + + + | Date | Type | Department | Care Team | Description | +--------+ + + + + | 02/22/ | Orders Only | [facility] | Lc Vial, | Right shoulder pain, | | 2017 | | ORTHOPEDIC SURGERY | [facility] | unspecified | | | | [address] [place] [address] | [place] | chronicity (Primary | | | | [place] | [address] | Dx) | | | | [address] | [phone] | | | | | [phone] | | | +--------+ + + + [...] | | | | | [place] [address] | | | | | | [phone] | | | | | | | | +--------+---------+ + + + | 04/26/ | Office | Orthopedic Surgery | Alanis, | | | 2017 | Visit | | MD [place] | | | | | | Karla [place] | | | | | | [place] [address] | | | | | | [phone] | | | | | | | | | | | | Lc Vail MD | | | | | | [address] [place] [address] | | | | | | [place], [place] | | | | | | [address] | | | | | | [phone] | | | | | | | [...]
--- OUTSIDE RECORDS SUMMARY | ~2018-03-05 | XMS | Encounter Summary ---
Demographics + + + | Address | [address] | | | [place] [address] | + + + | Home Phone [...] Providers + +------+ + | Care Enrollment Management Coordinator Name | Role | Phone | [...] + + | 02/04/ | Telephone | [facility] | Alanis, | Other (Kidney pain ) | | 2018 | | MEDICINE [address] | MD Petrona | | | | | [facility] | [address] [place] [address] | | | | | [place] [address] | [place] [address] | | | | | [phone] | [phone] | | | | | | | [...] | | | | | [place] [address] | | | | | | [phone] | | | | | | | | +--------+---------+ + + + | 04/26/ | Office | Orthopedic Surgery | Alanis, | | | 2017 | Visit | | MD Petrona | | | | | | [address] [place] | | | | | | [place] [address] | | | | | | [phone] | | | | | | | | | | | | Lc Vail MD | | | | | | [address] [place] | | | | | | [place] | | | | | | [address] | | | | | | [phone] | | | | | | | | +--------+---------+ + + + as of this encounter Visit Diagnoses Not on filein this encounter"
--- OUTSIDE RECORDS SUMMARY | ~2018-03-05 | XMS | Encounter Summary ---
Demographics + + + | Address | [address] | | | [place] [address] | + + + | Home Phone [...] Team Providers + +------+ + | Care Lean Process Deployment Consultant Name | Role | Phone | [...] | | | | [address] | [place] [address] | | | | | | [place], | Phone: | | | | | | [place] | [phone] | | | | | | [address] | Fax: | | | | | | Phone: | [phone] | | | | | | [phone] | | | | | | | Fax: | | | | | | | [phone] | | + + + + + + + Encounter Details +--------+---------+ + + + | Date | Type | Department | Care Team | Description | +--------+---------+ + + + | 12/30/ | Office | [facility] | Ulysses Genao MD | Benign paroxysmal | | 2018 | Visit | OTOLARYNGOLOGY [address] | [address] [place] | positional vertigo, | | | | [address] [address] | [address] [place], | unspecified | | | | [place], [place] | [place] [address] | laterality (Primary | | | | [address] | [phone] | Dx); Dysfunction of | | | | [phone] | | left eustachian tube | +--------+---------+ [...] negative nichole ft to it. Her speech reception specialist threshold is 20 dB in the right [...] Petrona | | | | | | [facility] [address] [place] | | | | | | [place] [address] | | | | | | [phone] | | | | | | | | +--------+---------+ + + + | 04/26/ | Office | Orthopedic Surgery | Emmy-Kamlesh, | | | 2017 | Visit | | MD Petrona | | | | | | [address] [facility] | | | | | | [place] [address] | | | | | | [phone] | | | | | | | | | | | | Lc Vail MD | | | | | | [address] [place] | | | | | | [place] | | | | | | [address] | | | | | | [phone] | | | | | | | | +--------+---------+ + + + as of this encounter Visit Diagnoses + + | Diagnosis | + + | Benign paroxysmal positional vertigo, unspecified laterality - Primary | + + | Dysfunction of left eustachian tube | + + | Dysfunction of Eustachian tube | + +
--- OUTSIDE RECORDS SUMMARY | ~2018-03-05 | XMS | Encounter Summary ---
Demographics + + + | Address | [address] | | | [place] [address] | + + + | Home Phone [...] Providers + +------+ + | Care Box Person Name | Role | Phone | [...] + + | 01/04/ | Telephone | [facility] | Alanis, | Skin Irritation | | 2017 | | MEDICINE [address] [place] [address] | MD Petrona | | | | | [facility] | [address] [place] [address] | | | | | [place] [address] | [place] [address] | | | | | [phone] | [phone] | | | | | | | [...] | | | | | [place] [address] | | | | | | [phone] | | | | | | | | +--------+---------+ + + + | 04/26/ | Office | Orthopedic Surgery | Emmy-Kamlesh, | | | 2017 | Visit | | MD Petrona | | | | | | [address] [facility] | | | | | | [place] [address] | | | | | | [phone] | | | | | | | | | | | | Lc Vail MD | | | | | | [address] [place] | | | | | | [place], [place] | | | | | | [address] | | | | | | [phone] | | | | | | | | +--------+---------+ + + + as of this encounter Visit Diagnoses + + | Diagnosis | + + | Tinea cruris - Primary | + + | Dermatophytosis of groin and perianal area | + +"
--- OUTSIDE RECORDS SUMMARY | ~2018-03-05 | XMS | Encounter Summary ---
Demographics + + + | Address | [address] | | | [place] [address] | + + + | Home Phone [...] Team Providers + +------+ + | Care Kindergartner Name | Role | Phone | + [...] + + | 02/24/ | Refill | [facility] | Alanis, | Medication Refill | | 2017 | | MEDICINE [address] [place] [address] | MD Petrona | | | | | [facility] | [address] [place] [address] | | | | | [place] [address] | [place] [address] | | | | | [phone] | [phone] | | | | | | | [...] | | | | | [place] [address] | | | | | | [phone] | | | | | | | | +--------+---------+ + + + | 04/26/ | Office | Orthopedic Surgery | Alanis, | | | 2017 | Visit | | MD Petrona | | | | | | [address] [facility] | | | | | | [place] [address] | | | | | | [phone] | | | | | | | | | | | | Lc Vail MD | | | | | | [address] [place] | | | | | | [place] | | | | | | [address] | | | | | | [phone] | | | | | | | | +--------+---------+ + + + as of this encounter Visit Diagnoses Not on filein this encounter"
--- OUTSIDE RECORDS SUMMARY | ~2018-03-05 | XMS | Encounter Summary ---
Demographics + + + | Address | [address] | | | [place] [address] [...] Providers + +------+ + | Care Director Day Care Center Name | Role | Phone | + [...] + + | 03/01/ | Telephone | [facility] | Alanis, | Other | | 2017 | | MEDICINE [address] [place] [address] | MD Petrona | | | | | [facility] | [address] [place] [address] | | | | | [place] [address] | [place] [address] | | | | | [phone] | [phone] | | | | | | | [...] | | | | | [address] | | | | | | [place] [address] | | | | | | [phone] | | | | | | | | +--------+---------+ + + + | 04/26/ | Office | Orthopedic Surgery | Alanis, | | | 2018 | Visit | | MD Petrona | | | | | | [address] | | | | | | [place] [address] | | | | | | [phone] | | | | | | | | | | | | Lc Vail MD | | | | | | [address] [place] | | | | | | [place] | | | | | | [address] | | | | | | [phone] | | | | | | | | +--------+---------+ + + + as of this encounter Visit Diagnoses Not on filein this encounter"
--- OUTSIDE RECORDS SUMMARY | ~2018-03-05 | XMS | Encounter Summary ---
Demographics + + + | Address | [address] | | | [place] [address] | + + + | Home Phone [...] Providers + +------+ + | Care Injection Maintenance Technician Name | Role | Phone | + +------+ + | Petrona Thapa | PCP | | | MD | | | + +------+ + Encounter Details +--------+ + + + + | Date | Type | Department | Care Team | Description | +--------+ + + + + | 12/07/ | Abstract | [facility] | Alanis, | | | 2017 | | MEDICINE [address] | MD Petrona | | | | | [address] [place] | [address] [facility] | | | | | [place] [address] | [place] [address] | | | | | [phone] | [phone] | | | | | | | [...] | | | | | [place] [address] | | | | | | [phone] | | | | | | | | +--------+---------+ + + + | 04/26/ | Office | Orthopedic Surgery | Alanis, | | | 2017 | Visit | | MD Petrona | | | | | | [address] | | | | | | [place] [address] | | | | | | [phone] | | | | | | | | | | | | Lc Vail MD | | | | | | [address] [place] | | | | | | [place] | | | | | | [address] | | | | | | [phone] | | | | | | | | +--------+---------+ + + + as of this encounter Procedures + +--------+ + + + | Procedure Name | Priori | Date/Time | Associated Diagnosis | Comments | | | ty | | | | + +--------+ + + + | DEXA BONE DENSITY | Routin | 04/01/2016 | | Results for this | | STUDY WO VERT FX | e | 0000 PDT | | procedure are in the | | ASSESSMENT | | | | results section. | + +--------+ + + + in this encounter Results DEXA Bone Density wo Rowdy Bray (04/01/2016) + +-------+ + + | Component | Value | Ref Range | Performed At | + +-------+ + + | EXT LOWEST T-SCORE | -2.3 | | | + +-------+ + + in this encounter Visit Diagnoses Not on filein this encounter"
--- OUTSIDE RECORDS SUMMARY | ~2018-03-05 | XMS | Encounter Summary ---
Demographics + + + | Address | [address] | | | [place] [address] | + + + | Home Phone [...] Providers + +------+ + | Care Cable Tv Installer Name | Role | Phone | [...] | | | OFFICE VISIT | | [address] Phone: | | | | | REGULAR | | [phone] | | | | | | | Fax: | | | | | | | [phone] | +--------+--------+ + + + + Encounter Details +--------+---------+ + + + | Date | Type | Department | Care Team | Description | +--------+---------+ + + + | 12/30/ | Office | [facility] | Elisabet Munson MS | Subjective tinnitus | | 2018 | Visit | AUDIOLOGY AND | [facility] [address] | of left ear (Primary | | | | [facility] | [address] [place] | Dx) | | | | [address] | [place] [address] | | | | | [address] [place] | [phone] | | | | | [place] [address] | | | | | | [phone] | | | +--------+---------+ + + + [...] | | | | | | [address] [place] [address] [place] | | | | | | [place] [address] | | | | | | [phone] | | | | | | | | +--------+---------+ + + + | 04/26/ | Office | Orthopedic Surgery | Alanis, | | | 2017 | Visit | | MD Petrona | | | | | | [address] | | | | | | [place] [address] | | | | | | [phone] | | | | | | | | | | | | Lc Vail MD | | | | | | [address] [place] | | | | | | [place] | | | | | | [address] | | | | | | [phone] | | | | | | | [...]
--- OUTSIDE RECORDS SUMMARY | ~2018-03-05 | XMS | Encounter Summary ---
Demographics + + + | Address | [address] | | | [place] [address] | + + + | Home Phone [...] Providers + +------+ + | Care Gun Mechanic Name | Role | Phone | [...] Rehabilitatio | deconditioni | i, | [address] | | | | n | ng Chronic | Sulaiman-Gily | [place], | | | | | bilateral | , MD [address] | [place] [address] | | | | | low back | [address] | Phone: | | | | | pain without | [place], | [phone] | | | | | sciatica | [place] | Fax: | | | | | Primary | [address] | [phone] | | | | | osteoarthrit | Phone: | | | | | | is of both | [phone] | | | | | | knees | Fax: | | | | | | Procedures | [phone] | | | | | | PT [...] + + | 12/10/ | Office | [facility] | Alanis, | Elevated liver | | 2018 | Visit | MEDICINE [address] | MD Petrona | enzymes (Primary | | | | [address] [place] | [address] [facility] | Dx); Limb cramps; | | | | [place] [address] | [place] [address] | Physical | | | | [phone] | [phone] | deconditioning; | | | | | [...] is interested in doing physical therapy in [place], pool therapy has helped in the pas [...] (See Comments) Confused and questionable for seizures Bohcrduqas-Qndo-Nsezosma Cephalexin Hives Duloxetine Migraines and nausea Ketorolac Hives Morphine Swelling Ropinirole Hcl Hives Tramadol Hcl Nausea Only Mrnqgqzznz-Zplh-Uxfjjanx Hives and Rash Ciprofloxacin Hives and Rash [...] Note: Parts of this documentwere created using [employer] speech recognition software. As a r [...] | [facility] [address] [facility] | | | | | | [place] [address] | | | | | | [phone] | | | | | | | | +--------+---------+ + + + | 04/26/ | Office | Orthopedic Surgery | Alanis, | | | 2017 | Visit | | MD Petrona | | | | | | [address] [facility] | | | | | | [place] [address] | | | | | | [phone] | | | | | | | | | | | | Lc Vail MD | | | | | | [address] [place] | | | | | | [place] | | | | | | [address] | | | | | | [phone] | | | | | | | [...] [address] | [place] | [phone] | | [facility] | | [address] | | | - LABORATORY | | | | + + + + + | [facility] | [address] | [place] | | | [facility] | | [address] | | | - LABORATORY | | [...] + | [facility] | [address] | [place], [place] | [phone] | | [facility] | | [address] | | | - LABORATORY | | | | + + + + + | [facility] | [address] | [place] | | | [facility] | | [address] | | | - LABORATORY | | [...] 0.9 | | | | | The [facility][NOTE 2] recommends that | | | | | a positive HCV antibody | | | | | result be followed up | | | | | with a HCV Nucleic Acid | | | | | Amplification test | | | | | ([id number]). | | | + + + + + + + | Specimen | + + | Blood | + + + + + | Narrative | Performed At | + + + | Performed at: [facility] [address], | REFERENCE LAB | | [place], [place] [id number] Label Remover: Bandar Gan MD, | [facility] | | Phone: [phone] | | + + + + + + + + | Performing | Address | City/State/Zipcode | Phone Number | | Organization | | | | + + + + + | REFERENCE LAB | [address] | [place] [address] | [phone] | | [facility] | [address] | | | + + + + [...] | First dose on [facility] 10/15/17 at 1215 | | | | [...]
--- OUTSIDE RECORDS SUMMARY | ~2018-03-05 | XMS | Encounter Summary ---
Demographics + + + | Address | [address] | | | [place] [address] | + + + | Home Phone [...] Team Providers + +------+ + | Care Filleter Name | Role | Phone | + [...] + + | 01/01/ | Refill | [facility] | Alanis, | Medication Refill | | 2017 | | MEDICINE [address] [place] [address] | MD Petrona | | | | | [facility] | [address] [place] [address] | | | | | [place] [address] | [place] [address] | | | | | [phone] | [phone] | | | | | | | [...] | | | | | [place] [address] | | | | | | [phone] | | | | | | | | +--------+---------+ + + + | 04/26/ | Office | Orthopedic Surgery | Alanis, | | | 2017 | Visit | | MD Petrona | | | | | | [address] [facility] | | | | | | [place] [address] | | | | | | [phone] | | | | | | | | | | | | Lc Vail MD | | | | | | [address] [place] | | | | | | [place] | | | | | | [address] | | | | | | [phone] | | | | | | | | +--------+---------+ + + + as of this encounter Visit Diagnoses Not on filein this encounter"
--- OUTSIDE RECORDS SUMMARY | ~2018-03-05 | XMS | Encounter Summary ---
Demographics + + + | Address | [address] | | | [place] [address] | + + + | Home Phone [...] + + | 01/04/ | Telephone | [facility] | Ulysses Genao MD | Other | | 2017 | | OTOLARYNGOLOGY [address] | [address] [facility] | | | | | [address] [facility] [address] | [address] [place], | | | | | [place], [place] | [place] [address] | | | | | [address] | [phone] | | | | | [phone] | | | +--------+ + + + [...] | | | | | [address] [place] | | | | | | [place] [address] | | | | | | [phone] | | | | | | | | +--------+---------+ + + + | 04/26/ | Office | Orthopedic Surgery | Alanis, | | | 2018 | Visit | | MD Petrona | | | | | | [address] | | | | | | [place] [address] | | | | | | [phone] | | | | | | | | | | | | Lc Vail MD | | | | | | [address] [place] | | | | | | [place] | | | | | | [address] | | | | | | [phone] | | | | | | | | +--------+---------+ + + + as of this encounter Visit Diagnoses Not on filein this encounter"
--- OUTSIDE RECORDS SUMMARY | ~2018-03-05 | XMS | Encounter Summary ---
Demographics + + + | Address | [address] | | | [place] [address] | + + + | Home Phone [...] Team Providers + +------+ + | Care River Guide Name | Role | Phone | [...] + + | 01/25/ | Telephone | [facility] | Alanis, | Medical Problem | | 2017 | | MEDICINE [address] [place] [address] | MD Petrona | | | | | [facility] | [address] [place] [address] | | | | | [place] [address] | [place] [address] | | | | | [phone] | [phone] | | | | | | | [...] | | | | | [place] [address] | | | | | | [phone] | | | | | | | | +--------+---------+ + + + | 04/26/ | Office | Orthopedic Surgery | Alanis, | | | 2017 | Visit | | MD Petrona | | | | | | [address] [place] | | | | | | [place] [address] | | | | | | [phone] | | | | | | | | | | | | Lc Vail MD | | | | | | [address] [place] | | | | | | [place], [place] | | | | | | [address] | | | | | | [phone] | | | | | | | | +--------+---------+ + + + as of this encounter Visit Diagnoses Not on filein this encounter"
--- OUTSIDE RECORDS SUMMARY | ~2018-03-05 | XMS | Encounter Summary ---
Demographics + + + | Address | [address] | | | [place] [address] | + + + | Home Phone [...] | [facility] | | | [...] Team Providers + +------+ + | Care Jigsaw Operator Name | Role | Phone | [...] + | 02/17/ | Clinical | [facility] | Alanis, | Vitamin B12 | | 2018 | Support | MEDICINE [address] [place] [address] | MD Petrona | deficiency | | | | [facility] | [address] [place] [address] | | | | | [place] [address] | [place] [address] | | | | | [phone] | [phone] | | | | | | | [...] | | | | | | [address] [place] [address] [place] | | | | | | [place] [address] | | | | | | [phone] | | | | | | | | +--------+---------+ + + + | 04/26/ | Office | Orthopedic Surgery | Alanis, | | | 2017 | Visit | | MD Petrona | | | | | | [address] | | | | | | [place] [address] | | | | | | [phone] | | | | | | | | | | | | Lc Vail MD | | | | | | [address] | | | | | | [place] | | | | | | [address] | | | | | | [phone] | | | | | | | [...] | | | | First dose on [facility] 10/15/17 at 1215 | | | [...]
--- OUTSIDE RECORDS SUMMARY | ~2018-03-05 | XMS | Encounter Summary ---
Demographics + + + | Address | [address] | | | [place] [address] | + + + | Home Phone [...] Providers + +------+ + | Care Store Sales Leader Name | Role | Phone | [...] + + | 02/01/ | Telephone | [facility] | Alanis, | Other (B12 shot) | | 2017 | | MEDICINE [address] [place] [address] | MD Petrona | | | | | [facility] | [address] [place] [address] | | | | | [place] [address] | [place] [address] | | | | | [phone] | [phone] | | | | | | | [...] | | | | | [place] [address] | | | | | | [phone] | | | | | | | | +--------+---------+ + + + | 04/26/ | Office | Orthopedic Surgery | Emmy-Kamlesh, | | | 2017 | Visit | | MD Petrona | | | | | | [address] [place] | | | | | | [place] [address] | | | | | | [phone] | | | | | | | | | | | | Lc Vail MD | | | | | | [address] [place] | | | | | | [place] | | | | | | [address] | | | | | | [phone] | | | | | | | | +--------+---------+ + + + as of this encounter Visit Diagnoses Not on filein this encounter"
--- OUTSIDE RECORDS SUMMARY | ~2018-03-05 | XMS | Encounter Summary ---
Demographics + + + | Address | [address] | | | [place] [address] | + + + | Home Phone [...] + + | 12/28/ | Telephone | [facility] | Alanis, | Results, Imaging | | 2017 | | MEDICINE [address] [place] [address] | MD Petrona | | | | | [facility] | [address] [place] [address] | | | | | [place] [address] | [place] [address] | | | | | [phone] | [phone] | | | | | | | [...] | | | | | [place] [address] | | | | | | [phone] | | | | | | | | +--------+---------+ + + + | 04/26/ | Office | Orthopedic Surgery | Alanis, | | | 2017 | Visit | | MD Petrona | | | | | | [address] [place] | | | | | | [place] [address] | | | | | | [phone] | | | | | | | | | | | | Lc Vail MD | | | | | | [address] [place] | | | | | | [place] | | | | | | [address] | | | | | | [phone] | | | | | | | | +--------+---------+ + + + as of this encounter Visit Diagnoses Not on filein this encounter"
--- OUTSIDE RECORDS SUMMARY | ~2018-03-05 | XMS | Encounter Summary ---
Demographics + + + | Address | [address] | | | [place] [address] | + + + | Home Phone [...] Team Providers + +------+ + | Care Last Inserter Name | Role | Phone | [...] + + | 01/04/ | Telephone | [facility] | Alanis, | Skin Irritation | | 2017 | | MEDICINE [address] [place] [address] | MD Petrona | | | | | [facility] | [address] [place] [address] | | | | | [place] [address] | [place] [address] | | | | | [phone] | [phone] | | | | | | | [...] | | | | | [place] [address] | | | | | | [phone] | | | | | | | | +--------+---------+ + + + | 04/26/ | Office | Orthopedic Surgery | Emmy-Kamlesh, | | | 2017 | Visit | | MD Petrona | | | | | | [address] [facility] | | | | | | [place] [address] | | | | | | [phone] | | | | | | | | | | | | Lc Vail MD | | | | | | [address] [place] | | | | | | [place], [place] | | | | | | [address] | | | | | | [phone] | | | | | | | | +--------+---------+ + + + as of this encounter Visit Diagnoses + + | Diagnosis | + + | Tinea cruris - Primary | + + | Dermatophytosis of groin and perianal area | + +"
--- OUTSIDE RECORDS SUMMARY | ~2018-03-05 | XMS | Encounter Summary ---
Demographics + + + | Address | [address] | | | [place] [address] | + + + | Home Phone [...] Providers + +------+ + | Care Avionics Systems Integration Specialist Name | Role | Phone [...] + + | 03/05/ | Telephone | [facility] | Alanis, | Other | | 2017 | | MEDICINE [address] [place] [address] | MD Petrona | | | | | [facility] | [address] [place] [address] | | | | | [place] [address] | [place] [address] | | | | | [phone] | [phone] | | | | | | | [...] | | | | | Karla LUDWIG [address] [place] | | | | | | [place] [address] | | | | | | [phone] | | | | | | | | +--------+---------+ + + + | 04/26/ | Office | Orthopedic Surgery | Alanis, | | | 2018 | Visit | | MD Petrona | | | | | | [address] | | | | | | [place] [address] | | | | | | [phone] | | | | | | | | | | | | Lc Vail MD | | | | | | [address] | | | | | | [place] | | | | | | [address] | | | | | | [phone] | | | | | | | | +--------+---------+ + + + as of this encounter Visit Diagnoses + + | Diagnosis | + + | Non-intractable vomiting with nausea, unspecified vomiting type - Primary | + +"
--- OUTSIDE RECORDS SUMMARY | ~2018-03-05 | XMS | Encounter Summary ---
Demographics + + + | Address | [address] | | | [place] [address] | + + + | Home Phone [...] Team Providers + +------+ + | Care Resident Service Coordinator Name | Role | Phone | [...] + + | 02/22/ | Refill | [facility] | Alanis, | Medication Refill | | 2017 | | MEDICINE [address] [place] [address] | MD Petrona | | | | | [facility] | [address] [place] [address] | | | | | [place] [address] | [place] [address] | | | | | [phone] | [phone] | | | | | | | [...] | | | | | [place] [address] | | | | | | [phone] | | | | | | | | +--------+---------+ + + + | 04/26/ | Office | Orthopedic Surgery | Alanis, | | | 2017 | Visit | | MD Petrona | | | | | | [address] [facility] | | | | | | [place] [address] | | | | | | [phone] | | | | | | | | | | | | Lc Vail MD | | | | | | [address] [place] | | | | | | [place] | | | | | | [address] | | | | | | [phone] | | | | | | | | +--------+---------+ + + + as of this encounter Visit Diagnoses Not on filein this encounter"
--- OUTSIDE RECORDS SUMMARY | ~2018-03-05 | XMS | Encounter Summary ---
Demographics + + + | Address | [address] | | | [place] [address] | + + + | Home Phone [...] Providers + +------+ + | Care Molding Line Assistant Name | Role | Phone | [...] + + | 03/03/ | Telephone | [facility] | Alanis, | Medication Question | | 2017 | | MEDICINE [address] [place] [address] | MD Petrona | | | | | [facility] | [address] [place] [address] | | | | | [place] [address] | [place] [address] | | | | | [phone] | [phone] | | | | | | | [...] | | | | | [place] [address] | | | | | | [phone] | | | | | | | | +--------+---------+ + + + | 04/26/ | Office | Orthopedic Surgery | Alanis, | | | 2017 | Visit | | MD Petrona | | | | | | [address] | | | | | | [place] [address] | | | | | | [phone] | | | | | | | | | | | | Lc Vail MD | | | | | | [address] | | | | | | [place] | | | | | | [address] | | | | | | [phone] | | | | | | | | +--------+---------+ + + + as of this encounter Visit Diagnoses Not on filein this encounter"
--- OUTSIDE RECORDS SUMMARY | ~2018-03-05 | XMS | Encounter Summary ---
Demographics + + + | Address | [address] | | | [place] [address] | + + + | Home Phone [...] Team Providers + +------+ + | Care Skating Rink Manager Name | Role | Phone | [...] + + | 02/11/ | Telephone | [facility] | Alanis, | Arm Pain (Right Arm) | | 2018 | | MEDICINE [address] [place] [address] | MD Petrona | | | | | [facility] | [address] [place] [address] | | | | | [place] [address] | [place] [address] | | | | | [phone] | [phone] | | | | | | | [...] | | | | | [place] [address] | | | | | | [phone] | | | | | | | | +--------+---------+ + + + | 04/26/ | Office | Orthopedic Surgery | Alanis, | | | 2017 | Visit | | MD Petrona | | | | | | [address] [place] | | | | | | [place] [address] | | | | | | [phone] | | | | | | | | | | | | Lc Vail MD | | | | | | [address] [place] | | | | | | [place], [place] | | | | | | [address] | | | | | | [phone] | | | | | | | | +--------+---------+ + + + as of this encounter Visit Diagnoses Not on filein this encounter"
--- OUTSIDE RECORDS SUMMARY | ~2018-03-05 | XMS | Encounter Summary ---
Demographics + + + | Address | [address] | | | [place] [address] | + + + | Home Phone [...] Providers + +------+ + | Care Cargo Tank Mechanic Name | Role | Phone | [...] + + | 01/04/ | Telephone | [facility] | Ulysses Genao MD | Other | | 2017 | | OTOLARYNGOLOGY 301 | [address] [facility] | | | | | [address] [facility] 210 | [address] [place], | | | | | [place], [place] | [place] [address] | | | | | [address] | [phone] | | | | | [phone] | | | +--------+ + + + [...] | | | | | Karla [place] | | | | | | [place] [address] | | | | | | [phone] | | | | | | | | +--------+---------+ + + + | 04/26/ | Office | Orthopedic Surgery | Alanis, | | | 2018 | Visit | | MD Petrona | | | | | | [address] | | | | | | [place] [address] | | | | | | [phone] | | | | | | | | | | | | Lc Vail MD | | | | | | [address] [place] | | | | | | [place] | | | | | | [address] | | | | | | [phone] | | | | | | | | +--------+---------+ + + + as of this encounter Visit Diagnoses Not on filein this encounter"
--- OUTSIDE RECORDS SUMMARY | ~2018-03-05 | XMS | Encounter Summary ---
Demographics + + + | Address | [address] | | | [place] [address] | + + + | Home Phone [...] Providers + +------+ + | Care Senior Sql Server Dba Name | Role | Phone | + [...] + + | 01/20/ | Refill | [facility] | Alanis, | Medication Refill | | 2017 | | MEDICINE [address] [place] [address] | MD Petrona | | | | | [facility] | [address] [place] [address] | | | | | [place] [address] | [place] [address] | | | | | [phone] | [phone] | | | | | | | [...] | | | | | [place] [address] | | | | | | [phone] | | | | | | | | +--------+---------+ + + + | 04/26/ | Office | Orthopedic Surgery | Alanis, | | | 2017 | Visit | | MD Petrona | | | | | | [address] [facility] | | | | | | [place] [address] | | | | | | [phone] | | | | | | | | | | | | Lc Vail MD | | | | | | [address] [place] | | | | | | [place] | | | | | | [address] | | | | | | [phone] | | | | | | | | +--------+---------+ + + + as of this encounter Visit Diagnoses Not on filein this encounter"
--- OUTSIDE RECORDS SUMMARY | ~2018-03-05 | XMS | Encounter Summary ---
Demographics + + + | Address | [address] | | | [place] [address] | + + + | Home Phone [...] Providers + +------+ + | Care System Dispatcher Name | Role | Phone | + +------+ + | Petrona Thapa | PCP | | | MD | | | + +------+ + Encounter Details +--------+ + + + + | Date | Type | Department | Care Team | Description | +--------+ + + + + | 12/07/ | Abstract | [facility] | Alanis, | | | 2017 | | MEDICINE [address] | MD Petrona | | | | | [address] [place] | [address] [facility] | | | | | [place] [address] | [place] [address] | | | | | [phone] | [phone] | | | | | | | [...] | | | | | [place] [address] | | | | | | [phone] | | | | | | | | +--------+---------+ + + + | 04/26/ | Office | Orthopedic Surgery | Alanis, | | | 2017 | Visit | | MD Petrona | | | | | | [address] | | | | | | [place] [address] | | | | | | [phone] | | | | | | | | | | | | Lc Vail MD | | | | | | [address] [place] | | | | | | [place] | | | | | | [address] | | | | | | [phone] | | | | | | | [...]
--- OUTSIDE RECORDS SUMMARY | ~2018-03-05 | XMS | Encounter Summary ---
Demographics + + + | Address | [address] | | | [place] [address] | + + + | Home Phone [...] Providers + +------+ + | Care Jet Engine Mechanic Name | Role | Phone | [...] + + | 02/03/ | Refill | [facility] | Alanis, | Medication Refill | | 2017 | | MEDICINE [address] [place] [address] | MD Petrona | | | | | [facility] | [address] [place] [address] | | | | | [place] [address] | [place] [address] | | | | | [phone] | [phone] | | | | | | | [...] | | | | | [place] [address] | | | | | | [phone] | | | | | | | | +--------+---------+ + + + | 04/26/ | Office | Orthopedic Surgery | Alanis, | | | 2017 | Visit | | MD Petrona | | | | | | [address] [facility] | | | | | | [place] [address] | | | | | | [phone] | | | | | | | | | | | | Lc Vail MD | | | | | | [address] [place] | | | | | | [place] | | | | | | [address] | | | | | | [phone] | | | | | | | | +--------+---------+ + + + as of this encounter Visit Diagnoses Not on filein this encounter"
--- OUTSIDE RECORDS SUMMARY | ~2018-03-05 | XMS | Encounter Summary ---
Demographics + + + | Address | [address] | | | [place] [address] | + + + | Home Phone [...] Providers + +------+ + | Care Binding Cementer French Cord Name | Role | Phone | + [...] + + | 01/25/ | Telephone | [facility] | Alanis, | Medical Problem | | 2017 | | MEDICINE [address] [place] [address] | MD Petrona | | | | | [facility] | [address] [place] [address] | | | | | [place] [address] | [place] [address] | | | | | [phone] | [phone] | | | | | | | [...] | | | | | [place] [address] | | | | | | [phone] | | | | | | | | +--------+---------+ + + + | 04/26/ | Office | Orthopedic Surgery | Alanis, | | | 2017 | Visit | | MD Petrona | | | | | | [address] [place] | | | | | | [place] [address] | | | | | | [phone] | | | | | | | | | | | | Lc Vail MD | | | | | | [address] [place] | | | | | | [place], [place] | | | | | | [address] | | | | | | [phone] | | | | | | | | +--------+---------+ + + + as of this encounter Visit Diagnoses Not on filein this encounter"
--- OUTSIDE RECORDS SUMMARY | ~2018-03-05 | XMS | Encounter Summary ---
Demographics + + + | Address | [address] | | | [place] [address] | + + + | Home Phone [...] Team Providers + +------+ + | Care Chin Strap Sewer Name | Role | Phone [...] + + | 01/04/ | Telephone | [facility] | Ulysses Genao MD | Other | | 2017 | | OTOLARYNGOLOGY 301 | [address] [facility] | | | | | [address] [facility] 210 | [address] [place], | | | | | [place], [place] | [place] [address] | | | | | [address] | [phone] | | | | | [phone] | | | +--------+ + + + [...] | | | | | Karla [address] | | | | | | [place] [address] | | | | | | [phone] | | | | | | | | +--------+---------+ + + + | 04/26/ | Office | Orthopedic Surgery | Alanis, | | | 2018 | Visit | | MD Petrona | | | | | | [address] | | | | | | [place] [address] | | | | | | [phone] | | | | | | | | | | | | Lc Vail MD | | | | | | [address] [place] | | | | | | [place] | | | | | | [address] | | | | | | [phone] | | | | | | | | +--------+---------+ + + + as of this encounter Visit Diagnoses Not on filein this encounter"
--- OUTSIDE RECORDS SUMMARY | ~2018-03-05 | XMS | Encounter Summary ---
Demographics + + + | Address | [address] | | | [place] [address] | + + + | Home Phone [...] Providers + +------+ + | Care Highway Maintenance Technician Name | Role | Phone [...] | | right | [address] | [address] Phone: | | | | | supraspinatu | [place], | [phone] | | | | | s tendon, | [place] | Fax: | | | | | initial | [address] | [phone] | | | | | encounter | Phone: | | | | | | | [phone] | | | | | | | Fax: | | | | | | | [phone] | | +--------+ + + + + [...] Acute pain | Emmy-Tajt | [address] | | | | | of right | i, | [place], | | | | | shoulder | [place] | [place] | | | | | Procedures | , MD [address] | [address] | | | | | MRI Shoulder | [address] | Phone: | | | | | Right wo | [place], | [phone] | | | | | Contrast | [place] | Fax: | | | | | | [address] | [phone] | | | | | | Phone: | | | | | | | [phone] | | | | | | | Fax: | | | | | | | [phone] | | +--------+--------+ + + + + [...] + + | 01/15/ | Office | [facility] INTER[facility] | Alanis, | Acute pain of right | | 2017 | Visit | MEDICINE [address] | MD Petrona | shoulder (Primary | | | | Street [place] | [address] [facility] | Dx); Chronic | | | | [place] [address] | [place] [address] | diarrhea; Fatty | | | | [phone] | [phone] | liver; S/P bariatric | | | [...] Surgeon: Luther Brito MD; Location: [facility] MEDICAL PROCEDURE UNIT DILATION AND CURETTAGE OF UTERUS ELBOW SURGERY FINGER TRIGGER RELEASE 2002 FINGER TRIGGER RELEASE 2010 GASTRIC BYPASS SURGERY 2004 HYSTERECTOMY 05/14/1980 JOINT REPLACEMENT Bilateral 2007,2008 KNEE ARTHROSCOPY 2005 LAPAROSCOPY 01/27/2015 LAPAROTOMY 2008 ROTATOR CUFF REPAIR 2005 SPINE SURGERY TONSILLECTOMY 1964 UPPER GASTROINTESTINAL ENDOSCOPY N/A 12/18/2017 Procedure: EGD; Surgeon: Luther Brito MD; Location: [facility] MEDICAL PROCEDURE UNIT CURRENT MEDICATIONS Current [...] (See Comments) Confused and questionable for seizures Zixtxjjrul-Tccx-Ghkxndzb Hives and Rash Cephalexin Hives Ciprofloxacin Hives [...] Note: Parts of this documentwere created using Rocketick speech recognition software. As a r esult, [...] | | | | | [place] [address] | | | | | | [phone] | | | | | | | | +--------+---------+ + + + | 04/26/ | Office | Orthopedic Surgery | Alanis, | | | 2017 | Visit | | MD Petrona | | | | | | [address] | | | | | | [place] [address] | | | | | | [phone] | | | | | | | | | | | | Lc Vail MD | | | | | | [address] | | | | | | [place] | | | | | | [address] | | | | | | [phone] | | | | | | | | +--------+---------+ + + + + +--------+ + + | Name | Priori | Associated Diagnoses | Order Schedule | | | ty | | | + +--------+ + + | * [facility] Orthopedic Surgery - | Routin | Acute [...]
--- OUTSIDE RECORDS SUMMARY | ~2018-03-05 | XMS | Encounter Summary ---
Demographics + + + | Address | [address] | | | [place] [address] | + + + | Home Phone [...] Team Providers + +------+ + | Care Nba Player Name | Role | Phone | + +------+ + | Petrona Thapa | PCP | | | MD | | | + +------+ + Encounter Details +--------+ + + + + | Date | Type | Department | Care Team | Description | +--------+ + + + + | 02/23/ | Hospital | [facility] | Lc Vail, | Right shoulder pain, | | 2018 | Encounter | [facility] [address] [facility] | MD Acosta [facility] | unspecified | | | | [address] [place] | [place] | chronicity | | | | [place] | [address] | | | | | [address] | [phone] | | | | | [phone] | | | +--------+ + + + [...] | | | | | [place] [address] | | | | | | [phone] | | | | | | | | +--------+---------+ + + + | 04/26/ | Office | Orthopedic Surgery | EmmyCarmen, | | | 2017 | Visit | | MD [place]rona | | | | | | [address] [facility] | | | | | | [place] [address] | | | | | | [phone] | | | | | | | | | | | | Lc Vail MD | | | | | | [address] [place] | | | | | | [place] | | | | | | [address] | | | | | | [phone] | | | | | | | [...]
--- OUTSIDE RECORDS SUMMARY | ~2018-03-05 | XMS | Encounter Summary ---
Demographics + + + | Address | [address] | | | [place] [address] | + + + | Home Phone [...] Providers + +------+ + | Care Baby Attendant Name | Role | Phone | [...] + + | 01/12/ | Refill | [facility] | Alanis, | Medication Refill | | 2017 | | MEDICINE [address] [place] [address] | MD Petrona | | | | | [facility] | [address] [place] [address] | | | | | [place] [address] | [place] [address] | | | | | [phone] | | | | | | | [...] | | | | | [place] [address] | | | | | | [phone] | | | | | | | | +--------+---------+ + + + | 04/26/ | Office | Orthopedic Surgery | Alanis, | | | 2017 | Visit | | MD Petrona | | | | | | [address] [facility] | | | | | | [place] [address] | | | | | | [phone] | | | | | | | | | | | | Lc Vail MD | | | | | | [address] [place] | | | | | | [place] | | | | | | [address] | | | | | | [phone] | | | | | | | | +--------+---------+ + + + as of this encounter Visit Diagnoses Not on filein this encounter"
--- OUTSIDE RECORDS SUMMARY | ~2018-03-05 | XMS | Encounter Summary ---
Demographics + + + | Address | [address] | | | [place] [address] | + + + | Home Phone [...] Providers + +------+ + | Care Mobile Health Vehicle Operator Name | Role | Phone | [...] | | | OFFICE VISIT | | [address] Phone: | | | | | REGULAR | | [phone] | | | | | | | Fax: | | | | | | | [phone] | +--------+--------+ + + + + Encounter Details +--------+---------+ + + + | Date | Type | Department | Care Team | Description | +--------+---------+ + + + | 12/30/ | Office | [facility] | Elisabet Munson MS | Subjective tinnitus | | 2018 | Visit | AUDIOLOGY AND | [facility] [address] | of left ear (Primary | | | | [facility] | [address] [place] | Dx) | | | | [address] | [place] [address] | | | | | [address] [place] | [phone] | | | | | [place] [address] | | | | | | [phone] | | | +--------+---------+ + + + [...] | | | | | | [address] [place] [address] [place] | | | | | | [place] [address] | | | | | | [phone] | | | | | | | | +--------+---------+ + + + | 04/26/ | Office | Orthopedic Surgery | Alanis, | | | 2017 | Visit | | MD [place]a | | | | | | [address] | | | | | | [place] [address] | | | | | | [phone] | | | | | | | | | | | | Lc Vail MD | | | | | | [address] [place] | | | | | | [place] | | | | | | [address] | | | | | | [phone] | | | | | | | [...]
--- OUTSIDE RECORDS SUMMARY | ~2018-03-05 | XMS | Encounter Summary ---
Demographics + + + | Address | [address] | | | [place] [address] | + + + | Home Phone [...] Providers + +------+ + | Care Dry Color Tester Name | Role | Phone | [...] + + | 01/04/ | Telephone | [facility] | Ulysses Genao MD | Other | | 2017 | | OTOLARYNGOLOGY [address] | [address] [facility] | | | | | [address] [facility] 210 | [address] [place], | | | | | [place], [place] | [place] [address] | | | | | [address] | [phone] | | | | | [phone] | | | +--------+ + + + [...] | | | | | Karla LUDW[address] [place] | | | | | | [place] [address] | | | | | | [phone] | | | | | | | | +--------+---------+ + + + | 04/26/ | Office | Orthopedic Surgery | Alanis, | | | 2018 | Visit | | MD [place] | | | | | | [address] | | | | | | [place] [address] | | | | | | [phone] | | | | | | | | | | | | Lc Vail MD | | | | | | [address] [place] | | | | | | [place] | | | | | | [address] | | | | | | [phone] | | | | | | | | +--------+---------+ + + + as of this encounter Visit Diagnoses Not on filein this encounter"
--- OUTSIDE RECORDS SUMMARY | ~2018-03-05 | XMS | Encounter Summary ---
Demographics + + + | Address | [address] | | | [place] [address] | + + + | Home Phone [...] Providers + +------+ + | Care Wet End Helper Name | Role | Phone | [...] + + | 02/18/ | Refill | [facility] | Alanis, | Results, Imaging | | 2017 | | MEDICINE [address] | MD [place]rona | | | | | [place] | [address] [place] [address] | | | | | [place] [address] | [place] [address] | | | | | [phone] | [phone] | | | | | | | [...] | | | | | [place] [address] | | | | | | [phone] | | | | | | | | +--------+---------+ + + + | 04/26/ | Office | Orthopedic Surgery | Alanis, | | | 2017 | Visit | | MD [place] | | | | | | [address] [place] | | | | | | [place] [address] | | | | | | [phone] | | | | | | | | | | | | Lc Vail MD | | | | | | [address] [place] | | | | | | [place], [place] | | | | | | [address] | | | | | | [phone] | | | | | | | | +--------+---------+ + + + as of this encounter Visit Diagnoses Not on filein this encounter"
--- OUTSIDE RECORDS SUMMARY | ~2018-03-05 | XMS | Encounter Summary ---
Demographics + + + | Address | [address] | | | [place] [address] | + + + | Home Phone [...] Team Providers + +------+ + | Care Dispensing Optician Apprentice Name | Role | Phone | [...] + + | 03/02/ | Office | [facility] | Emmy-Tajti, | Neck pain on right | | 2018 | Visit | MEDICINE [address] | MD Petrona | side (Primary Dx); | | | | Street [place] | [address] [facility] | Primary stabbing | | | | [place] [address] | [place] [address] | headache; | | | | [phone] | [phone] | Non-intractable | | | | | [...] may be dif ferent from the original. [facility] PROGRESS NOTE Pt. Name/Age/: Belinda Meehan 58 y.o. 1960 Med. Record Number: [id number] HPI: Belinda Meehan is a 58 y.o. [...] insufficiency Coccydynia COPD (chronic obstructive pulmonary disease) ([facility] [...] spasm Myalgia Nonalcoholic hepatosteatosis Obesity Opioid dependence ([facility]) Orthostatic hypotension OLIVER (obstructive sleep apnea) Osteoarthritis, generalized Osteopenia Osteoporosis Peripheral neuropathy Rheumatoid arthritis ([facility] [...] Location: [facility] MEDICAL PROCEDURE UNIT Allergies Allergen Reactions Levofloxacin Hives,Itching,Rash Hoqdjtohlb-Lmba-Rvzjjwgv Hives,Rash Cephalexin Hives Ciprofloxacin Hives,Rash Clarithromycin Hives,Rash [...] | | | | | [place] [address] | | | | | | [phone] | | | | | | | | +--------+---------+ + + + | 04/26/ | Office | Orthopedic Surgery | EmmyAlberto, | | | 2017 | Visit | | MD [place] | | | | | | [address] [facility] | | | | | | [place] [address] | | | | | | [phone] | | | | | | | | | | | | Lc Vail MD | | | | | | [address] [place] | | | | | | [place] | | | | | | [address] | | | | | [phone] | | | | | | | [...] | >60Comment: GLOMERULAR | >=60 mL/min/1.73m2 | [facility] | | TRISTANIAN | FILTRATION | | [facility] | | | RATE,ESTIMATED mL/min | | CENTER - | | | /1.61r8Mmkc than 60 | | LABORATORY | | [...] [facility] | | | | | [facility] | | | | | CENTER - | | | | | LABORATORY | + + + + + + + | Specimen | + + | Blood | + + + + + + + | Performing | Address | City/State/[facility] | Phone Number | | Organization | | | | + + + + + | [facility] | [address] | [place] | [phone] | | [facility] | | [address] | | | - LABORATORY | | | | + + + + + | [facility] | [address] | [place] | | | [facility] | | [address] | | | - LABORATORY | | | | + + + + + CBC with Differential (03/02/2018 1041) + + + + + | Component | Value | Ref Range | Performed At | + + + + + | WBC | 10.3 | 4.0 - 11.0 K/uL | [facility] | | | | | [facility] | | | | | CENTER - | | | | | LABORATORY | + + + + + | RBC | 4.66 | 3.70 - 5.20 M/uL | [facility] | | | | | [facility] | | | | | [...] + + | Performing | Address | [facility] | Phone Number | | Organization | | | | + + + + + | [facility] | [address] | [place], [place] | [phone] | | [facility] | | [address] | | | - LABORATORY | | | | + + + + + | [facility] | [address] | [place], [place] | | | [facility] | | [address] | | | - LABORATORY | | [...] ST[facility] | [address] | [place], [place] | [phone] | | [facility] | | [address] | | | - LABORATORY | | | | + + + + + | [facility] | [address] | [place], [place] | | | [facility] | | [address] | | | - LABORATORY | | [...]
--- OUTSIDE RECORDS SUMMARY | ~2018-03-05 | XMS | Encounter Summary ---
Demographics + + + | Address | [address] | | | [place] [address] | + + + | Home Phone [...] Providers + +------+ + | Care Copy Supervisor Name | Role | Phone | [...] | Telephone | [facility] | Ulysses Genao MD | Other | | 2017 | | OTOLARYNGOLOGY [address] | [address] [facility] | | | | | [address] [facility] [address] | [address], | | | | | [place], [place] | [place] [address] | | | | | [address] | [phone] | | | | | [phone] | | | +--------+ + + + [...] | | | | | [place]la [place] | | | | | | [place] [address] | | | | | | [phone] | | | | | | | | +--------+---------+ + + + | 04/26/ | Office | Orthopedic Surgery | Alanis, | | | 2018 | Visit | | MD [place] | | | | | | [address] | | | | | | [place] [address] | | | | | | [phone] | | | | | | | | | | | | Lc Vail MD | | | | | | [address] [place] | | | | | | [place] | | | | | | [address] | | | | | | [phone] | | | | | | | | +--------+---------+ + + + as of this encounter Visit Diagnoses Not on filein this encounter"
--- OUTSIDE RECORDS SUMMARY | ~2018-03-05 | XMS | Encounter Summary ---
Demographics + + + | Address | [address] | | | [place] [address] | + + + | Home Phone [...] Providers + +------+ + | Care Principal Mechanical Engineer Name | Role | Phone [...] Radiology | | 2018 | | MEDICINE [address] [place] [address] | MD Petrona | Appointment | | | | [facility] | [address] [place] [address] | | | | | [place] [address] | [place] [address] | | | | | [phone] | [phone] | | | | | | | [...] | | | | | [place] [address] | | | | | | [phone] | | | | | | | | +--------+---------+ + + + | 11/12/ | Office | Orthopedic Surgery | Emmy-Kamlesh, | | | 2017 | Visit | | MD Petrona | | | | | | [address] | | | | | | [place] [address] | | | | | | [phone] | | | | | | | | | | | | Lc Vail MD | | | | | | [address] [place] | | | | | | [place] | | | | | | [address] | | | | | | [phone] | | | | | | | | +--------+---------+ + + + as of this encounter Visit Diagnoses Not on filein this encounter"
--- OUTSIDE RECORDS SUMMARY | ~2018-03-05 | XMS | Encounter Summary ---
Demographics + + + | Address | [address] | | | [place] [address] | + + + | Home Phone [...] Team Providers + +------+ + | Care Reeling Machine Operator Name | Role | Phone [...] + + | 03/02/ | Office | [facility] | Emmy-Tajti, | Neck pain on right | | 2018 | Visit | MEDICINE [address] | MD Petrona | side (Primary Dx); | | | | Street [place] | [address] [facility] | Primary stabbing | | | | [place] [address] | [place] [address] | headache; | | | | [phone] | [phone] | Non-intractable | | | | | [...] may be dif ferent from the original. [facility] PROGRESS NOTE Pt. Name/Age/: Belinda Meehan 58 y.o. 1960 Med. Record Number: [id number] HPI: Belinda Meehan is a 58 y.o. [...] Osteoporosis Peripheral neuropathy Rheumatoid arthritis ([facility] [...] Procedure: COLONOSCOPY; Surgeon: Luther Brito MD; Location: [facility] DILATION AND CURETTAGE OF UTERUS ELBOW SURGERY FINGER TRIGGER RELEASE 2002 FINGER TRIGGER RELEASE 2010 GASTRIC BYPASS SURGERY 2004 HYSTERECTOMY 05/14/1980 JOINT REPLACEMENT Bilateral 2007,2008 KNEE ARTHROSCOPY 2005 LAPAROSCOPY 01/27/2015 LAPAROTOMY 2008 ROTATOR CUFF REPAIR 2005 SPINE SURGERY TONSILLECTOMY 1964 UPPER GASTROINTESTINAL ENDOSCOPY N/A 12/18/2017 Procedure: EGD; Surgeon: Luther Brito MD; Location: [facility] Allergies Allergen Reactions Levofloxacin Hives,Itching,Rash Gjjaxancza-Schh-Pmuuhgrm Hives,Rash Cephalexin Hives Ciprofloxacin Hives,Rash Clarithromycin Hives,Rash [...] | | | | [facility] [address] | | | | | | [place] [address] | | | | | | [phone] | | | | | | | | +--------+---------+ + + + | 04/26/ | Office | Orthopedic Surgery | EmmyAlberto, | | | 2017 | Visit | | MD Petrona | | | | | | [address] [facility] | | | | | | [place] [address] | | | | | | [phone] | | | | | | | | | | | | Lc Vail MD | | | | | | [address] [place] | | | | | | [place] | | | | | | [address] | | | | | | [phone] | | | | | | | [...] | >60Comment: GLOMERULAR | >=60 mL/min/1.73m2 | [facility] | | ANGOLAN | FILTRATION | | [facility] | | | RATE,ESTIMATED mL/min | | CENTER - | | | /1.04k3Rknf than 60 | | LABORATORY | | [...] [facility] | | | | | [facility] | | | | | CENTER - | | | | | LABORATORY | + + + + + + + | Specimen | + + | Blood | + + + + + + + | Performing | Address | City/State/[facility] | Phone Number | | Organization | | | | + + + + + | [facility] | [address] | [place] | [phone] | | [facility] | | [address] | | | - LABORATORY | | | | + + + + + | [facility] | [address] | [place] | | | [facility] | | [address] | | | - LABORATORY | | | | + + + + + CBC with Differential (03/02/2018 1041) + + + + + | Component | Value | Ref Range | Performed At | + + + + + | WBC | 10.3 | 4.0 - 11.0 K/uL | [facility] | | | | | [facility] | | | | | CENTER - | | | | | LABORATORY | + + + + + | RBC | 4.66 | 3.70 - 5.20 M/uL | [facility] | | | | | [facility] | | | | | CENTER - [...] + + | Performing | Address | City/[facility] | Phone Number | | Organization | | | | + + + + + | [facility] | [address] | [place], [place] | [phone] | | [facility] | | [address] | | | - LABORATORY | | | | + + + + + | [facility] | [address] | [place], [place] | | | [facility] | | [address] | | | - LABORATORY | | [...] ST. | [address] | [place], [place] | [phone] | | [facility] | | [address] | | | - LABORATORY | | | | + + + + + | [facility] | [address] | [place], [place] | | | [facility] | | [address] | | | - LABORATORY | | [...]
--- OUTSIDE RECORDS SUMMARY | ~2018-03-05 | XMS | Encounter Summary ---
Demographics + + + | Address | [address] | | | [place] [address] | + + + | Home Phone [...] Providers + +------+ + | Care Event Marketing Coordinator Name | Role | Phone | [...] + + | 03/02/ | Telephone | [facility] | Alanis, | Lab Results | | 2017 | | MEDICINE [address] [place] [address] | MD Petrona | | | | | [facility] | [address] [place] [address] | | | | | [place] [address] | [place] [address] | | | | | [phone] | [phone] | | | | | | | [...] | | | | | [place] [address] | | | | | | [phone] | | | | | | | | +--------+---------+ + + + | 04/26/ | Office | Orthopedic Surgery | Emmy-Kamlesh, | | | 2017 | Visit | | MD Petrona | | | | | | [address] | | | | | | [place] [address] | | | | | | [phone] | | | | | | | | | | | | Lc Vail MD | | | | | | [address] | | | | | | [place] | | | | | | [address] | | | | | | [phone] | | | | | | | | +--------+---------+ + + + as of this encounter Visit Diagnoses Not on filein this encounter"
--- OUTSIDE RECORDS SUMMARY | ~2018-03-05 | XMS | Encounter Summary ---
Demographics + + + | Address | [address] | | | [place] [address] | + + + | Home Phone [...] Team Providers + +------+ + | Care Oval Or Circular Glass Cutter Name | Role | Phone | [...] | | | | | [address] | [facility] | | | | | [place] | [place] [address] | | | | | [address] | [phone] | | | | | [phone] | | | +--------+ + + + [...] 12/18/17 1321 by | | lyssa | ioyu-fkv-jzxgys catheter system; | HEMANT SANTOS | Lucy [...] | | | | | [place] [address] | | | | | | [phone] | | | | | | | | +--------+---------+ + + + | 04/26/ | Office | Orthopedic Surgery | Alanis, | | | 2017 | Visit | | MD Petrona | | | | | | [address] | | | | | | [place] [address] | | | | | | [phone] | | | | | | | | | | | | Lc Vail MD | | | | | | [address] | | | | | | [place] | | | | | | [address] | | | | | | [phone] | | | | | | | [...]
--- OUTSIDE RECORDS SUMMARY | ~2018-03-05 | XMS | Encounter Summary ---
Demographics + + + | Address | [address] | | | [place] [address] | + + + | Home Phone [...] Providers + +------+ + | Care Hotel Controller Name | Role | Phone | [...] Acute pain | Emmy-Tajt | [address] | | | | | of right | i, | [place], | | | | | shoulder | [place] | [place] | | | | | Procedures | , MD [address] | [address] | | | | | MRI Shoulder | [address] | Phone: | | | | | Right wo | [place], | [phone] | | | | | Contrast | [place] | Fax: | | | | | | [address] | [phone] | | | | | | Phone: | | | | | | | [phone] | | | | | | | Fax: | | | | | | | [phone] | | +--------+--------+ + + + + Diagnostic/Screening (Routine) +--------+--------+ [...] Acute pain | Emmy-Tajt | [address] | | | | | of right | i, | [place], | | | | | shoulder | [place] | [place] | | | | | Procedures | , MD [address] | [address] | | | | | MRI Shoulder | [address] | Phone: | | | | | Right wo | [place], | [phone] | | | | | Contrast | [place] | Fax: | | | | | | [address] | [phone] | | | | | | Phone: | | | | | | | [phone] | | | | | | | Fax: | | | | | | | [phone] | | +--------+--------+ + + + + [...] Acute pain | Emmy-Tajt | [address] | | | | | of right | i, | [place], | | | | | shoulder | [place] | [place] | | | | | Procedures | , MD [address] | [address] | | | | | MRI Shoulder | [address] | Phone: | | | | | Right wo | [place], | [phone] | | | | | Contrast | [place] | Fax: | | | | | | [address] | [phone] | | | | | | Phone: | | | | | | | [phone] | | | | | | | Fax: | | | | | | | [phone] | | +--------+--------+ + + + + Encounter Details +--------+ + + + + | Date | Type | Department | Care Team | Description | +--------+ + + + + | 02/17/ | Hospital | [facility] | Emmy-Kamlesh, | Acute pain of right | | 2018 | Encounter | MED CTR MRI [address] | MD Petrona | shoulder | | | | [address] [place], | [address] [place] | | | | | [place] [address] | [place] [address] | | | | | [phone] | | | | | | | [...] | | | | | [place] [address] | | | | | | [phone] | | | | | | | | +--------+---------+ + + + | 04/26/ | Office | Orthopedic Surgery | Alanis, | | | 2017 | Visit | | MD Petrona | | | | | | [address] | | | | | | [place] [address] | | | | | | [phone] | | | | | | | | | | | | Lc Vail MD | | | | | | [address] [place] | | | | | | [place] | | | | | | [address] | | | | | | [phone] | | | | | | | [...] + + + in this encounter Results MRI Shoulder Right [...] + + | Performing | Address | City/State/[facility] | Phone Number | | Organization | | | | + +---------+ + + | [facility] | | | | + +---------+ + + in this encounter Visit Diagnoses + + | Diagnosis | + + | Acute pain of right shoulder | + +"
--- OUTSIDE RECORDS SUMMARY | ~2018-03-05 | XMS | Encounter Summary ---
Demographics + + + | Address | [address] | | | [place] [address] | + + + | Home Phone [...] Providers + +------+ + | Care Rehabilitation Center Manager Name | Role | Phone [...] + + | 03/02/ | Telephone | [facility] | Alanis, | Lab Results | | 2017 | | MEDICINE [address] [place] [address] | MD Petrona | | | | | [facility] [place] [facility] | [address] [place] [address] | | | | | [place] [address] | [place] [address] | | | | | [phone] | [phone] | | | | | | | [...] | | | | | [place] [address] | | | | | | [phone] | | | | | | | | +--------+---------+ + + + | 04/26/ | Office | Orthopedic Surgery | Emmy-Kamlesh, | | | 2017 | Visit | | MD Petrona | | | | | | [address] | | | | | | [place] [address] | | | | | | [phone] | | | | | | | | | | | | Lc Vail MD | | | | | | [address] | | | | | | [place] | | | | | | [address] | | | | | | [phone] | | | | | | | | +--------+---------+ + + + as of this encounter Visit Diagnoses Not on filein this encounter"
--- OUTSIDE RECORDS SUMMARY | ~2018-03-05 | XMS | Encounter Summary ---
Demographics + + + | Address | [address] | | | [place] [address] | + + + | Home Phone [...] Providers + +------+ + | Care Bottom Bleacher Name | Role | Phone | [...] Arm) | | 2018 | | MEDICINE [address] [place] [address] | MD Petrona | | | | | [facility] | [address] [place] [address] | | | | | [place] [address] | [place] [address] | | | | | [phone] | [phone] | | | | | | | [...] | | | | | [place] [address] | | | | | | [phone] | | | | | | | | +--------+---------+ + + + | 04/26/ | Office | Orthopedic Surgery | Alanis, | | | 2017 | Visit | | MD Petrona | | | | | | [address] [place] | | | | | | [place] [address] | | | | | | [phone] | | | | | | | | | | | | Lc Vail MD | | | | | | [address] [place] | | | | | | [place], [place] | | | | | | [address] | | | | | | [phone] | | | | | | | | +--------+---------+ + + + as of this encounter Visit Diagnoses Not on filein this encounter"
--- OUTSIDE RECORDS SUMMARY | ~2018-03-05 | XMS | Encounter Summary ---
Demographics + + + | Address | [address] | | | [place] [address] | + + + | Home Phone [...] | Organization | [facility] | | | [...] Team Providers + +------+ + | Care Lastex Operator Name | Role | Phone | + +------+ + | Petrona Thapa | PCP | | | MD | | | + +------+ + Encounter Details +--------+ + + + + | Date | Type | Department | Care Team | Description | +--------+ + + + + | 03/02/ | Hospital | [facility] | Alanis, | Neck pain on right | | 2018 | Encounter | MED [facility] | MD Petrona | side | | | | [address] [place] | [address] [place] | | | | | [place], [place] | [place] [address] | | | | | [address] | [phone] | | | | | [phone] | | | +--------+ + + + [...] 5 | 10/16/19 | | | FINDIndications: OILVER | | each | | 18 | [...] | | | | | | [place] [address] | | | | | | [phone] | | | | | | | | +--------+---------+ + + + | 04/26/ | Office | Orthopedic Surgery | Alanis, | | | 2017 | Visit | | MD Petrona | | | | | | [address] [place] | | | | | | [place] [address] | | | | | | [phone] | | | | | | | | | | | | Lc Vail MD | | | | | | [address] [place] | | | | | | [place] | | | | | | [address] | | | | | | [phone] | | | | | | | [...]
--- OUTSIDE RECORDS SUMMARY | ~2018-03-05 | XMS | Encounter Summary ---
Demographics + + + | Address | [address] | | | [place] [address] | + + + | Home Phone [...] Providers + +------+ + | Care Test Carrier Name | Role | Phone | [...] + + | 03/03/ | Telephone | [facility] | Alanis, | Medication Question | | 2017 | | MEDICINE [address] [place] [address] | MD Petrona | | | | | [facility] | [address] [place] [address] | | | | | [place] [address] | [place] [address] | | | | | [phone] | | | | | | | [...] | | | | | [place] [address] | | | | | | [phone] | | | | | | | | +--------+---------+ + + + | 04/26/ | Office | Orthopedic Surgery | Alanis, | | | 2017 | Visit | | MD Petrona | | | | | | [address] | | | | | | [place] [address] | | | | | | [phone] | | | | | | | | | | | | Lc Vail MD | | | | | | [address] | | | | | | [place] | | | | | | [address] | | | | | | [phone] | | | | | | | | +--------+---------+ + + + as of this encounter Visit Diagnoses Not on filein this encounter"
--- OUTSIDE RECORDS SUMMARY | ~2018-03-05 | XMS | Encounter Summary ---
Demographics + + + | Address | [address] | | | [place] [address] | + + + | Home Phone [...] Providers + +------+ + | Care Stone Carriage Operator Name | Role | Phone [...] + + | 03/01/ | Telephone | [facility] | Alanis, | Other | | 2017 | | MEDICINE [address] [place] [address] | MD Petrona | | | | | [facility] | [address] [place] [address] | | | | | [place] [address] | [place] [address] | | | | | [phone] | | | | | | | [...] | | | | | [address] [place] | | | | | | [place] [address] | | | | | | [phone] | | | | | | | | +--------+---------+ + + + | 04/26/ | Office | Orthopedic Surgery | Alanis, | | | 2018 | Visit | | MD Petrona | | | | | | [address] | | | | | | [place] [address] | | | | | | [phone] | | | | | | | | | | | | Lc Vail MD | | | | | | [address] [place] | | | | | | [place] | | | | | | [address] | | | | | | [phone] | | | | | | | | +--------+---------+ + + + as of this encounter Visit Diagnoses Not on filein this encounter"
--- OUTSIDE RECORDS SUMMARY | ~2018-03-05 | XMS | Encounter Summary ---
Demographics + + + | Address | [address] | | | [place] [address] | + + + | Home Phone [...] Providers + +------+ + | Care Qa Software Tester Name | Role | Phone | + +------+ + | Petrona Thapa | PCP | | | MD | | | + +------+ + Encounter Details +--------+ + + + + | Date | Type | Department | Care Team | Description | +--------+ + + + + | 03/02/ | Hospital | [facility] | Alanis, | Neck pain on right | | 2018 | Encounter | [facility] | MD Petrona | side | | | | [address] [place] | [address] [place] | | | | | [place], [place] | [place] [address] | | | | | [address] | [phone] | | | | | [phone] | | | +--------+ + + + [...] | | | | | | [place] [address] | | | | | | [phone] | | | | | | | | +--------+---------+ + + + | 04/26/ | Office | Orthopedic Surgery | Alanis, | | | 2017 | Visit | | MD Petrona | | | | | | [address] [place] | | | | | | [place] [address] | | | | | | [phone] | | | | | | | | | | | | Lc Vail MD | | | | | | [address] [place] | | | | | | [place] | | | | | | [address] | | | | | | [phone] | | | | | | | [...]
--- OUTSIDE RECORDS SUMMARY | ~2018-03-05 | XMS | Encounter Summary ---
Demographics + + + | Address | [address] | | | [place] [address] | + + + | Home Phone [...] + | 03/03/ | Telephone | [facility] | Alanis, | Medication Question | | 2017 | | MEDICINE [address] [place] [address] | MD Petrona | | | | | [facility] | [address] [place] [address] | | | | | [place] [address] | [place] [address] | | | | | [phone] | [phone] | | | | | | | [...] | | | | | [place] [address] | | | | | | [phone] | | | | | | | | +--------+---------+ + + + | 04/26/ | Office | Orthopedic Surgery | Alanis, | | | 2017 | Visit | | MD Petrona | | | | | | [address] | | | | | | [place] [address] | | | | | | [phone] | | | | | | | | | | | | Lc Vail MD | | | | | | [address] | | | | | | [place] | | | | | | [address] | | | | | | [phone] | | | | | | | | +--------+---------+ + + + as of this encounter Visit Diagnoses Not on filein this encounter"
--- OUTSIDE RECORDS SUMMARY | ~2018-03-05 | XMS | Encounter Summary ---
Demographics + + + | Address | [address] | | | [place] [address] | + + + | Home Phone [...] Providers + +------+ + | Care Screw Eye Assembler Name | Role | Phone | [...] + + | 12/28/ | Telephone | [facility] | Alanis, | Radiology | | 2018 | | MEDICINE [address] [place] [address] | MD Petrona | Appointment | | | | [facility] | [address] [place] [address] | | | | | [place] [address] | [place] [address] | | | | | [phone] | [phone] | | | | | | | [...] | | | | | [place] [address] | | | | | | [phone] | | | | | | | | +--------+---------+ + + + | 11/12/ | Office | Orthopedic Surgery | Emmy-Kamlesh, | | | 2017 | Visit | | MD Petrona | | | | | | [address] | | | | | | [place] [address] | | | | | | [phone] | | | | | | | | | | | | Lc Vail MD | | | | | | [address] [place] | | | | | | [place] | | | | | | [address] | | | | | | [phone] | | | | | | | | +--------+---------+ + + + as of this encounter Visit Diagnoses Not on filein this encounter"
--- OUTSIDE RECORDS SUMMARY | ~2018-03-05 | XMS | Encounter Summary ---
Demographics + + + | Address | [address] | | | [place] [address] | + + + | Home Phone [...] Acute pain | Emmy-Tajt | [address] | | | | | of right | i, | [place], | | | | | shoulder | [place] | [place] | | | | | Procedures | , MD [address] | [address] | | | | | MRI Shoulder | [address] | Phone: | | | | | Right wo | [place], | [phone] | | | | | Contrast | [place] | Fax: | | | | | | [address] | [phone] | | | | | | Phone: | | | | | | | [phone] | | | | | | | Fax: | | | | | | | [phone] | | +--------+--------+ + + + + [...] Acute pain | Emmy-Tajt | [address] | | | | | of right | i, | [place], | | | | | shoulder | [place] | [place] | | | | | Procedures | , MD [address] | [address] | | | | | MRI Shoulder | [address] | Phone: | | | | | Right wo | [place], | [phone] | | | | | Contrast | [place] | Fax: | | | | | | [address] | [phone] | | | | | | Phone: | | | | | | | [phone] | | | | | | | Fax: | | | | | | | [phone] | | +--------+--------+ + + + + [...] Acute pain | Emmy-Tajt | [address] | | | | | of right | i, | [place], | | | | | shoulder | [place] | [place] | | | | | Procedures | , MD [address] | [address] | | | | | MRI Shoulder | [address] | Phone: | | | | | Right wo | [place], | [phone] | | | | | Contrast | [place] | Fax: | | | | | | [address] | [phone] | | | | | | Phone: | | | | | | | [phone] | | | | | | | Fax: | | | | | | | [phone] | | +--------+--------+ + + + + Encounter Details +--------+ + + + + | Date | Type | Department | Care Team | Description | +--------+ + + + + | 02/17/ | Hospital | [facility] | Emmy-Kamlesh, | Acute pain of right | | 2018 | Encounter | MED CTR MRI [address] | MD Petrona | shoulder | | | | [address] [place], | [address] [place] | | | | | [place] [address] | [place] [address] | | | | | [phone] | [phone] | | | | | | | [...] | | | | | [place] [address] | | | | | | [phone] | | | | | | | | +--------+---------+ + + + | 04/26/ | Office | Orthopedic Surgery | Alanis, | | | 2017 | Visit | | MD [place] | | | | | | Karla KAY | | | | | | [place] [address] | | | | | | [phone] | | | | | | | | | | | | Lc Vail MD | | | | | | [address] [place] | | | | | | [place] | | | | | | [address] | | | | | | [phone] | | | | | | | [...] + + | Performing | Address | City/[facility] | Phone Number | | Organization | | | | + +---------+ + + | [facility] | | | | + +---------+ + + in this encounter Visit Diagnoses + + | Diagnosis | + + | Acute pain of right shoulder | + +"
--- OUTSIDE RECORDS SUMMARY | ~2018-03-05 | XMS | Encounter Summary ---
Demographics + + + | Address | [address] | | | [place] [address] | + + + | Home Phone [...] Providers + +------+ + | Care Gold Nib Grinder Name | Role | Phone | [...] + + | 02/04/ | Telephone | [facility] | Alanis, | Other (Kidney pain ) | | 2018 | | MEDICINE [id number] | [place] | | | | | [facility] | [address] [place] [address] | | | | | [place] [address] | [place] [address] | | | | | [phone] | [phone] | | | | | | | [...] | | | | | [place] [address] | | | | | | [phone] | | | | | | | | +--------+---------+ + + + | 04/26/ | Office | Orthopedic Surgery | Alanis, | | | 2017 | Visit | | [place] | | | | | | [address] [place] | | | | | | [place] [address] | | | | | | [phone] | | | | | | | | | | | | Lc Vail MD | | | | | | [address] [place] | | | | | | [place] | | | | | | [address] | | | | | | [phone] | | | | | | | | +--------+---------+ + + + as of this encounter Visit Diagnoses Not on filein this encounter"
--- OUTSIDE RECORDS SUMMARY | ~2018-03-05 | XMS | Encounter Summary ---
Demographics + + + | Address | [address] | | | [place] [address] | + + + | Home Phone [...] Providers + +------+ + | Care Recovery Unit Operator Name | Role | Phone [...] + + | 12/28/ | Telephone | [facility] | Alanis, | Radiology | | 2018 | | MEDICINE [address] [place] [address] | MD Petrona | Appointment | | | | [facility] | [address] [place] [address] | | | | | [place] [address] | [place] [address] | | | | | [phone] | [phone] | | | | | | | [...] | | | | | [place] [address] | | | | | | [phone] | | | | | | | | +--------+---------+ + + + | 11/12/ | Office | Orthopedic Surgery | Emmy-Kamlesh, | | | 2017 | Visit | | MD Petrona | | | | | | [address] | | | | | | [place] [address] | | | | | | [phone] | | | | | | | | | | | | Lc Vail MD | | | | | | [address] [place] | | | | | | [place] | | | | | | [address] | | | | | | [phone] | | | | | | | | +--------+---------+ + + + as of this encounter Visit Diagnoses Not on filein this encounter"
--- OUTSIDE RECORDS SUMMARY | ~2018-03-05 | XMS | Encounter Summary ---
Demographics + + + | Address | [address] | | | [place] [address] | + + + | Home Phone [...] | | 2018 | | MEDICINE [address] [place] [address] | MD Petrona | | | | | [facility] | [address] [place] [address] | | | | | [place] [address] | [place] [address] | | | | | [phone] | | | | | | | [...] | | | | | [place] [address] | | | | | | [phone] | | | | | | | | +--------+---------+ + + + | 04/26/ | Office | Orthopedic Surgery | Emmy-Tajti, | | | 2018 | Visit | | MD Petrona | | | | | | [address] | | | | | | [place] [address] | | | | | | [phone] | | | | | | | | | | | | Lc Vail MD | | | | | | [address] [place] | | | | | | [place] | | | | | | [address] | | | | | | [phone] | | | | | | | | +--------+---------+ + + + as of this encounter Visit Diagnoses Not on filein this encounter"
--- OUTSIDE RECORDS SUMMARY | ~2018-03-05 | XMS | Encounter Summary ---
Demographics + + + | Address | [address] | | | [place] [address] | + + + | Home Phone [...] | + + +---------+ + | Ardiana Grant | ECON | Unknown | | [...] + + | 12/26/ | Refill | [facility] | Alanis, | Medication Refill | | 2017 | | MEDICINE [address] [place] [address] | MD Petrona | | | | | [facility] | [address] [place] [address] | | | | | [place] [address] | [place] [address] | | | | | [phone] | [phone] | | | | | | | [...] | | | | | [place] [address] | | | | | | [phone] | | | | | | | | +--------+---------+ + + + | 04/26/ | Office | Orthopedic Surgery | Alanis, | | | 2017 | Visit | | MD Petrona | | | | | | [address] [facility] | | | | | | [place] [address] | | | | | | [phone] | | | | | | | | | | | | Lc Vail MD | | | | | | [address] [place] | | | | | | [place] | | | | | | [address] | | | | | | [phone] | | | | | | | | +--------+---------+ + + + as of this encounter Visit Diagnoses Not on filein this encounter"
--- OUTSIDE RECORDS SUMMARY | ~2018-03-05 | XMS | Encounter Summary ---
Demographics + + + | Address | [address] | | | [place] [address] | + + + | Home Phone [...] Providers + +------+ + | Care Locomotive Lubricating Systems Clerk Name | Role | Phone | [...] | | right | [address] | [address] Phone: | | | | | supraspinatu | [place], | [phone] | | | | | s tendon, | [place] | Fax: | | | | | initial | [address] | [phone] | | | | | encounter | Phone: | | | | | | | [phone] | | | | | | | Fax: | | | | | | | [phone] | | +--------+ + + + + [...] Acute pain | Emmy-Tajt | [address] | | | | | of right | i, | [place], | | | | | shoulder | Petrona | [place] | | | | | Procedures | , MD [address] | [address] | | | | | MRI Shoulder | [address] | Phone: | | | | | Right wo | [place], | [phone] | | | | | Contrast | [place] | Fax: | | | | | | [address] | [phone] | | | | | | Phone: | | | | | | | [phone] | | | | | | | Fax: | | | | | | | [phone] | | +--------+--------+ + + + + [...] + + | 01/15/ | Office | [facility] | Alanis, | Acute pain of right | | 2017 | Visit | MEDICINE [address] | MD Petrona | shoulder (Primary | | | | Street [place] | [address] [facility] | Dx); Chronic | | | | [place] [address] | [place] [address] | diarrhea; Fatty | | | | [phone] | [phone] | liver; S/P bariatric | | | [...] Procedure: COLONOSCOPY; Surgeon: Luther Brito MD; Location: [facility] MEDICAL PROCEDURE UNIT DILATION AND CURETTAGE OF UTERUS ELBOW SURGERY FINGER TRIGGER RELEASE 2002 FINGER TRIGGER RELEASE 2010 GASTRIC BYPASS SURGERY 2004 HYSTERECTOMY 05/14/1980 JOINT REPLACEMENT Bilateral 2007,2008 KNEE ARTHROSCOPY 2005 LAPAROSCOPY 01/27/2015 LAPAROTOMY 2008 ROTATOR CUFF REPAIR 2005 SPINE SURGERY TONSILLECTOMY 1964 UPPER GASTROINTESTINAL ENDOSCOPY N/A 12/18/2017 Procedure: EGD; Surgeon: Luther Brito MD; Location: [facility] MEDICAL PROCEDURE UNIT CURRENT MEDICATIONS Current [...] (See Comments) Confused and questionable for seizures Njsragsbzt-Llbi-Mrxczdjw Hives and Rash Cephalexin Hives Ciprofloxacin Hives [...] Note: Parts of this documentwere created using [employer] speech recognition software. As a r esult, [...] | | | | | [place] [address] | | | | | | [phone] | | | | | | | | +--------+---------+ + + + | 04/26/ | Office | Orthopedic Surgery | Alanis, | | | 2017 | Visit | | MD Petrona | | | | | | [address] | | | | | | [place] [address] | | | | | | [phone] | | | | | | | | | | | | Lc Vail MD | | | | | | [address] | | | | | | [place] | | | | | | [address] | | | | | | [phone] | | | | | | | | +--------+---------+ + + + + +--------+ + + | Name | Priori | Associated Diagnoses | Order Schedule | | | ty | | | + +--------+ + + | * [facility] Orthopedic Surgery - | Routin | Acute [...]
--- OUTSIDE RECORDS SUMMARY | ~2018-03-05 | XMS | Encounter Summary ---
Demographics + + + | Address | [address] | | | [place] [address] | + + + | Home Phone [...] Providers + +------+ + | Care Fence Maker Name | Role | Phone | [...] + + | 03/05/ | Telephone | [facility] | Alanis, | Other | | 2017 | | MEDICINE [address] [place] [address] | MD Petrona | | | | | [facility] | [address] [place] [address] | | | | | [place] [address] | [place] [address] | | | | | [phone] | [phone] | | | | | | | [...] | | | | | [address] [place] | | | | | | [place] [address] | | | | | | [phone] | | | | | | | | +--------+---------+ + + + | 04/26/ | Office | Orthopedic Surgery | Alanis, | | | 2018 | Visit | | MD Petrona | | | | | | [address] [place] | | | | | | [place] [address] | | | | | | [phone] | | | | | | | | | | | | Lc Vail MD | | | | | | [address] [place] | | | | | | [place] | | | | | | [address] | | | | | | [phone] | | | | | | | | +--------+---------+ + + + as of this encounter Visit Diagnoses + + | Diagnosis | + + | Non-intractable vomiting with nausea, unspecified vomiting type - Primary | + +"
--- OUTSIDE RECORDS SUMMARY | ~2018-03-05 | XMS | Encounter Summary ---
Demographics + + + | Address | [address] | | | [place] [address] | + + + | Home Phone [...] Team Providers + +------+ + | Care Shank Boner Name | Role | Phone | [...] | | ORTHOPEDIC SURGERY | MD Acosta [facility] | unspecified | | | | [address] [place] [address] | [place] | chronicity (Primary | | | | [place] | [address] | Dx) | | | | [address] | [phone] | | | | | [phone] | | | +--------+ + + + [...] | | | | | [place] [address] | | | | | | [phone] | | | | | | | | +--------+---------+ + + + | 04/26/ | Office | Orthopedic Surgery | Alanis, | | | 2017 | Visit | | MD Petrona | | | | | | [address] | | | | | | [place] [address] | | | | | | [phone] | | | | | | | | | | | | Lc Vail MD | | | | | | [address] [place] [address] | | | | | | [place], [place] | | | | | | [address] | | | | | | [phone] | | | | | | | [...]
--- OUTSIDE RECORDS SUMMARY | ~2018-03-05 | XMS | Encounter Summary ---
Demographics + + + | Address | [address] | | | [place] [address] | + + + | Home Phone [...] Providers + +------+ + | Care Lead Instructor/Flight Attendant Name | Role | Phone | [...] + | 02/03/ | Refill | [facility] | Alanis, | Medication Refill | | 2017 | | MEDICINE [address] [place] [address] | MD Petrona | | | | | [facility] | [address] [place] [address] | | | | | [place] [address] | [place] [address] | | | | | [phone] | | | | | | | [...] | | | | | [place] [address] | | | | | | [phone] | | | | | | | | +--------+---------+ + + + | 04/26/ | Office | Orthopedic Surgery | Alanis, | | | 2017 | Visit | | MD Petrona | | | | | | [address] [facility] | | | | | | [place] [address] | | | | | | [phone] | | | | | | | | | | | | Lc Vail MD | | | | | | [address] [place] | | | | | | [place] | | | | | | [address] | | | | | | [phone] | | | | | | | | +--------+---------+ + + + as of this encounter Visit Diagnoses Not on filein this encounter"
--- OUTSIDE RECORDS SUMMARY | ~2018-03-05 | XMS | Encounter Summary ---
Demographics + + + | Address | [address] | | | [place] [address] | + + + | Home Phone [...] Providers + +------+ + | Care Visual Display Associate Name | Role | Phone | [...] | | | | [address] | [place] [address] | | | | | | [place], | Phone: | | | | | | [place] | [phone] | | | | | | [address] | Fax: | | | | | | Phone: | [phone] | | | | | | [phone] | | | | | | | Fax: | | | | | | | [phone] | | + + + + + + + Encounter Details +--------+---------+ + + + | Date | Type | Department | Care Team | Description | +--------+---------+ + + + | 12/30/ | Office | [facility] | Ulysses Genao MD | Benign paroxysmal | | 2018 | Visit | OTOLARYNGOLOGY [address] | [address] [place] | positional vertigo, | | | | [address] | [address] [place], | unspecified | | | | [place], [place] | [place] [address] | laterality (Primary | | | | [address] | [phone] | Dx); Dysfunction of | | | | [phone] | | left eustachian tube | +--------+---------+ [...] negative nichole ft to it. Her speech board certified family physician threshold is 20 dB in the right [...] Petrona | | | | | | [facility] [address] [place] | | | | | | [place] [address] | | | | | | [phone] | | | | | | | | +--------+---------+ + + + | 04/26/ | Office | Orthopedic Surgery | Emmy-Kamlesh, | | | 2017 | Visit | | MD Petrona | | | | | | [address] [facility] | | | | | | [place] [address] | | | | | | [phone] | | | | | | | | | | | | Lc Vail MD | | | | | | [address] [place] | | | | | | [place] | | | | | | [address] | | | | | | [phone] | | | | | | | | +--------+---------+ + + + as of this encounter Visit Diagnoses + + | Diagnosis | + + | Benign paroxysmal positional vertigo, unspecified laterality - Primary | + + | Dysfunction of left eustachian tube | + + | Dysfunction of Eustachian tube | + +
--- OUTSIDE RECORDS SUMMARY | ~2018-03-05 | XMS | Encounter Summary ---
Demographics + + + | Address | [address] | | | [place] [address] | + + + | Home Phone [...] + +------+ + | Care Client Experience Administrator Name | Role | Phone | + +------+ + | Petrona Thapa | PCP | | | MD | | | + +------+ + Encounter Details +--------+ + + + + | Date | Type | Department | Care Team | Description | +--------+ + + + + | 02/23/ | Hospital | [facility] | Lc Vail, | Right shoulder pain, | | 2018 | Encounter | [facility] [address] [facility] | MD Acosta [facility] | unspecified | | | | [address] [place] | [place] | chronicity | | | | [place] | [address] | | | | | [address] | [phone] | | | | | [phone] | | | +--------+ + + + [...] | | | | | [place] [address] | | | | | | [phone] | | | | | | | | +--------+---------+ + + + | 04/26/ | Office | Orthopedic Surgery | EmmyCarmen, | | | 2017 | Visit | | MD Petrona | | | | | | [address] [facility] | | | | | | [place] [address] | | | | | | [phone] | | | | | | | | | | | | Lc Vail MD | | | | | | [address] [place] | | | | | | [place] | | | | | | [address] | | | | | | [phone] | | | | | | | [...]
--- OUTSIDE RECORDS SUMMARY | ~2018-03-05 | XMS | Encounter Summary ---
Demographics + + + | Address | [address] | | | [place] [address] | + + + | Home Phone [...] Providers + +------+ + | Care Continuity Reader Name | Role | Phone | [...] + + | 12/28/ | Telephone | [facility] | Alanis, | Results, Imaging | | 2017 | | MEDICINE [address] [place] [address] | MD Petrona | | | | | [facility] | [address] [place] [address] | | | | | [place] [address] | [place] [address] | | | | | [phone] | [phone] | | | | | | | [...] | | | | | [place] [address] | | | | | | [phone] | | | | | | | | +--------+---------+ + + + | 04/26/ | Office | Orthopedic Surgery | Alanis, | | | 2017 | Visit | | MD Petrona | | | | | | [address] | | | | | | [place] [address] | | | | | | [phone] | | | | | | | | | | | | Lc Vail MD | | | | | | [address] [place] | | | | | | [place] | | | | | | [address] | | | | | | [phone] | | | | | | | | +--------+---------+ + + + as of this encounter Visit Diagnoses Not on filein this encounter"
--- OUTSIDE RECORDS SUMMARY | ~2018-03-05 | XMS | Encounter Summary ---
Demographics + + + | Address | [address] | | | [place] [address] | + + + | Home Phone [...] Providers + +------+ + | Care Paint Preparer Name | Role | Phone | [...] + + | 02/11/ | Telephone | [facility] | Alanis, | Arm Pain (Right Arm) | | 2018 | | MEDICINE [address] [place] [address] | MD Petrona | | | | | [facility] | [address] [place] [address] | | | | | [place] [address] | [place] [address] | | | | | [phone] | | | | | | | [...] | | | | | [place] [address] | | | | | | [phone] | | | | | | | | +--------+---------+ + + + | 04/26/ | Office | Orthopedic Surgery | Alanis, | | | 2017 | Visit | | MD Petrona | | | | | | [address] [place] | | | | | | [place] [address] | | | | | | [phone] | | | | | | | | | | | | Lc Vail MD | | | | | | [address] [place] | | | | | | [place], [place] | | | | | | [address] | | | | | | [phone] | | | | | | | | +--------+---------+ + + + as of this encounter Visit Diagnoses Not on filein this encounter"
--- OUTSIDE RECORDS SUMMARY | ~2018-03-05 | XMS | Encounter Summary ---
Demographics + + + | Address | [address] | | | [place] [address] | + + + | Home Phone [...] Providers + +------+ + | Care Animal Trainer Supervisor Name | Role | Phone | [...] + + | 12/28/ | Telephone | [facility] | Alanis, | Results, Imaging | | 2017 | | MEDICINE [address] [place] [address] | MD Petrona | | | | | [facility] | [address] [place] [address] | | | | | [place] [address] | [place] [address] | | | | | [phone] | [phone] | | | | | | | [...] | | | | | [place] [address] | | | | | | [phone] | | | | | | | | +--------+---------+ + + + | 04/26/ | Office | Orthopedic Surgery | Alanis, | | | 2017 | Visit | | MD Petrona | | | | | | [address] | | | | | | [place] [address] | | | | | | [phone] | | | | | | | | | | | | Lc Vail MD | | | | | | [address] [place] | | | | | | [place] | | | | | | [address] | | | | | | [phone] | | | | | | | | +--------+---------+ + + + as of this encounter Visit Diagnoses Not on filein this encounter"
--- OUTSIDE RECORDS SUMMARY | ~2018-03-05 | XMS | Encounter Summary ---
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 Name | Role | Phone | [...] + + | 01/12/ | Refill | [facility] | Alanis, | Medication Refill | | 2017 | | MEDICINE [address] [place] [address] | MD Petrona | | | | | [facility] | [address] [place] [address] | | | | | [place] [address] | [place] [address] | | | | | [phone] | [phone] | | | | | | | [...] Petrona | | | | | | [address] | | | | | | [place] [address] | | | | | | [phone] | | | | | | | | +--------+---------+ + + + | 04/26/ | Office | Orthopedic Surgery | Alanis, | | | 2017 | Visit | | MD Petrona | | | | | | [address] [facility] | | | | | | [place] [address] | | | | | | [phone] | | | | | | | | | | | | Lc Vail MD | | | | | | [address] [place] | | | | | | [place] | | | | | | [address] | | | | | | [phone] | | | | | | | | +--------+---------+ + + + as of this encounter Visit Diagnoses Not on filein this encounter"
--- OUTSIDE RECORDS SUMMARY | ~2018-03-05 | XMS | Encounter Summary ---
Demographics + + + | Address | [address] | | | [place] [address] | + + + | Home Phone [...] Providers + +------+ + | Care Quality Tech Name | Role | Phone | [...] + + | 01/08/ | Telephone | [facility] | Alanis, | Results, Imaging | | 2017 | | MEDICINE [address] [place] [address] | MD Petrona | | | | | [facility] | [address] [place] [address] | | | | | [place] [address] | [place] [address] | | | | | [phone] | [phone] | | | | | | | [...] | | | | | [place] [address] | | | | | | [phone] | | | | | | | | +--------+---------+ + + + | 04/26/ | Office | Orthopedic Surgery | Alanis, | | | 2017 | Visit | | MD Petrona | | | | | | [address] | | | | | | [place] [address] | | | | | | [phone] | | | | | | | | | | | | Lc Vail MD | | | | | | [address] [place] | | | | | | [place] | | | | | | [address] | | | | | | [phone] | | | | | | | | +--------+---------+ + + + as of this encounter Visit Diagnoses Not on filein this encounter"
--- OUTSIDE RECORDS SUMMARY | ~2018-03-05 | XMS | Encounter Summary ---
Demographics + + + | Address | [address] | | | [place] [address] | + + + | Home Phone [...] Providers + +------+ + | Care Environmental Science Program Director Name | Role | Phone [...] + + | 02/18/ | Telephone | [facility] | Alanis, | Results | | 2018 | | MEDICINE [address] [place] [address] | MD Petrona | | | | | [facility] | [address] [place] [address] | | | | | [place] [address] | [place] [address] | | | | | [phone] | [phone] | | | | | | | [...] | | | | | [place] [address] | | | | | | [phone] | | | | | | | | +--------+---------+ + + + | 04/26/ | Office | Orthopedic Surgery | Alanis, | | | 2018 | Visit | | MD Petrona | | | | | | [address] | | | | | | [place] [address] | | | | | | [phone] | | | | | | | | | | | | Lc Vail MD | | | | | | [address] [place] | | | | | | [place] | | | | | | [address] | | | | | | [phone] | | | | | | | | +--------+---------+ + + + as of this encounter Visit Diagnoses Not on filein this encounter"
--- OUTSIDE RECORDS SUMMARY | ~2018-03-05 | XMS | Encounter Summary ---
Demographics + + + | Address | [address] | | | [place] [address] | + + + | Home Phone [...] Providers + +------+ + | Care Media Clerk Name | Role | Phone | [...] + | 03/01/ | Telephone | [facility] | Alanis, | Other | | 2017 | | MEDICINE [address] [place] [address] | MD Petrona | | | | | [facility] | [address] [place] [address] | | | | | [place] [address] | [place] [address] | | | | | [phone] | [phone] | | | | | | | [...] | | | | | [address]la [address] [place] | | | | | | [place] [address] | | | | | | [phone] | | | | | | | | +--------+---------+ + + + | 04/26/ | Office | Orthopedic Surgery | Alanis, | | | 2018 | Visit | | MD Petrona | | | | | | [address] | | | | | | [place] [address] | | | | | | [phone] | | | | | | | | | | | | Lc Vail MD | | | | | | [address] [place] | | | | | | [place] | | | | | | [address] | | | | | | [phone] | | | | | | | | +--------+---------+ + + + as of this encounter Visit Diagnoses Not on filein this encounter"
--- OUTSIDE RECORDS SUMMARY | ~2018-03-05 | XMS | Encounter Summary ---
Demographics + + + | Address | [address] | | | [place] [address] | + + + | Home Phone [...] Team Providers + +------+ + | Care Honing Machine Operator Production Name | Role | Phone | [...] | | | Tear of | [place] | [place] | | | | | right | [address] | [place] | | | | | supraspinatu | Phone: | [address] | | | | | s tendon, | [phone] | Phone: | | | | | initial | Fax: | [phone] | | | | | encounter | [phone] | Fax: | | | | | | | [phone] | +--------+ + + + + + [...] | | right | [address] | [address] Phone: | | | | | supraspinatu | [place], | [phone] | | | | | s tendon, | [place] | Fax: | | | | | initial | [address] | [phone] | | | | | encounter | Phone: | | | | | | | [phone] | | | | | | | Fax: | | | | | | | [phone] | | +--------+ + + + + [...] | | right | [address] | [address] Phone: | | | | | supraspinatu | [place], | [phone] | | | | | s tendon, | [place] | Fax: | | | | | initial | [address] | [phone] | | | | | encounter | Phone: | | | | | | | [phone] | | | | | | | Fax: | | | | | | | [phone] | | +--------+ + + + + + Encounter Details +--------+---------+ + + + | Date | Type | Department | Care Team | Description | +--------+---------+ + + + | 02/23/ | Office | [facility] | Lc Vail, | Acute pain of right | | 2018 | Visit | ORTHOPEDIC SURGERY | [address] [place] [address] | shoulder; Tear of | | | | [address] [facility] | [place], [place] | right supraspinatus | | | | [place] | [address] | tendon, initial | | | | [address] | [phone] | encounter | | | | [phone] | | | +--------+---------+ + + + [...] the shoulder. Try to hold the stretch [id number]. 3. Work up to [id number] of this stretch,3times a day. Work up [...] ask your healthcare provider. Date Last Reviewed: 07/16/201719994486-0661 [employer]. [address] [place] [address]. All [facility] ts reserved. This information is not intended as a substitute for professional medical care. Always follow your healthcare professional's instructions. in this encounter Progress Notes Lc Vail MD - 02/23/2018 1330 PDTFormatting of this note may be different from the original. [facility] HISTORY AND PHYSICAL EXAMINATION [...] H[facility]PITAL [facility]URSING FACILITY MEDICAL PROCEDURE UNIT Allergies: Allergies Allergen Reactions Codeine Sulfate Nausea Only Levofloxacin Hives, Itching and Rash Amitriptyline Hcl Other (See Comments) Confused and questionable for seizures Jyhsfvqhqc-Eknw-Rdsapnql Hives and Rash Cephalexin Hives Ciprofloxacin Hives [...] and extend the thumb at the interphalangeal mrei int, make an "ok" sign, adduct and [...] 1. Acute pain of right shoulder * [facility] Physical Therapy - AMB Referral triamcinolone acetonide (KENALOG-40) 40 mg/mL injection 40 mg 2. Tear of right supraspinatus tendon, initial encounter * [facility] Physical Therapy - AMB Refe rral triamcinolone [...] injection. She is very symptomatic at the [facility] ent and states that she has a hard time sleeping at night. The injection should help with h er pain. It should also allow her to do physical therapy. This is not an acute injury and a course of nonoperative management is indicated prior to consideration of surgical interven tion. Of note, she presented to [facility] today. I asked her to stay [...] made to ensure accuracy; however, inadvertent computerized service mechanic errors may be pre sent. I appreciate [...] KAY | | | | | | [place] [address] | | | | | | [phone] | | | | | | | | +--------+---------+ + + + | 04/26/ | Office | Orthopedic Surgery | Alanis, | | 2017 | Visit | | MD Petrona | | | | | | [address] | | | | | | [place] [address] | | | | | | [phone] | | | | | | | | | | | | Lc Vail MD | | | | | | [address] [facility] | | | | | | [place] | | | | | | [address] | | | | | | [phone] | | | | | | | [...]
--- OUTSIDE RECORDS SUMMARY | ~2018-03-05 | XMS | Encounter Summary ---
Demographics + + + | Address | [address] | | | [place] [address] | + + + | Home Phone [...] Providers + +------+ + | Care Senior Piping Designer Name | Role | Phone | + +------+ + | Petrona Thapa | PCP | | | MD | | | + +------+ + Encounter Details +--------+ + + + + | Date | Type | Department | Care Team | Description | +--------+ + + + + | 12/07/ | Abstract | [facility] | Alanis, | | | 2017 | | MEDICINE [address] | MD Petrona | | | | | [address] [place] | [address] [facility] | | | | | [place] [address] | [place] [address] | | | | | [phone] | [phone] | | | | | | | [...] | | | | | [place] [address] | | | | | | [phone] | | | | | | | | +--------+---------+ + + + | 04/26/ | Office | Orthopedic Surgery | Alanis, | | | 2017 | Visit | | MD Petrona | | | | | | [address] | | | | | | [place] [address] | | | | | | [phone] | | | | | | | | | | | | Lc Vail MD | | | | | | [address] [place] | | | | | | [place] | | | | | | [address] | | | | | | [phone] | | | | | | | [...]
--- OUTSIDE RECORDS SUMMARY | ~2018-03-05 | XMS | Encounter Summary ---
Demographics + + + | Address | [address] | | | [place] [address] | + + + | Home Phone [...] Team Providers + +------+ + | Care Deep Submergence Vehicle Crewmember Name | Role | Phone | [...] + + | 02/18/ | Refill | [facility] | Alanis, | Results, Imaging | | 2017 | | MEDICINE [address] | MD Petrona | | | | | [place]ij[place] | [address] [place] [address] | | | | | [place] [address] | [place] [address] | | | | | [phone] | [phone] | | | | | | | [...] | | | | | [place] [address] | | | | | | [phone] | | | | | | | | +--------+---------+ + + + | 04/26/ | Office | Orthopedic Surgery | Alanis, | | | 2017 | Visit | | MD Petrona | | | | | | [address] [place] | | | | | | [place] [address] | | | | | | [phone] | | | | | | | | | | | | Lc Vail MD | | | | | | [address] [place] | | | | | | [place], [place] | | | | | | [address] | | | | | | [phone] | | | | | | | | +--------+---------+ + + + as of this encounter Visit Diagnoses Not on filein this encounter"
--- OUTSIDE RECORDS SUMMARY | ~2018-03-05 | XMS | Encounter Summary ---
Demographics + + + | Address | [address] | | | [place] [address] | + + + | Home Phone [...] Providers + +------+ + | Care Community Pharmacist Name | Role | Phone | [...] + + | 02/03/ | Refill | [facility] | Alanis, | Medication Refill | | 2017 | | MEDICINE [address] [place] [address] | MD Petrona | | | | | [facility] | [address] [place] [address] | | | | | [place] [address] | [place] [address] | | | | | [phone] | [phone] | | | | | | | [...] | | | | | [place] [address] | | | | | | [phone] | | | | | | | | +--------+---------+ + + + | 04/26/ | Office | Orthopedic Surgery | Alanis, | | | 2017 | Visit | | MD Petrona | | | | | | [address] | | | | | | [place] [address] | | | | | | [phone] | | | | | | | | | | | | Lc Vail MD | | | | | | [address] [place] | | | | | | [place] | | | | | | [address] | | | | | | [phone] | | | | | | | | +--------+---------+ + + + as of this encounter Visit Diagnoses Not on filein this encounter"
--- OUTSIDE RECORDS SUMMARY | ~2018-03-05 | XMS | Encounter Summary ---
Demographics + + + | Address | [address] | | | [place] [address] | + + + | Home Phone [...] | | | Tear of | [place] | [place] | | | | | right | [address] | [place] | | | | | supraspinatu | Phone: | [address] | | | | | s tendon, | [phone] | Phone: | | | | | initial | Fax: | [phone] | | | | | encounter | [phone] | Fax: | | | | | | | [phone] | +--------+ + + + + + [...] | | right | [address] | [address] Phone: | | | | | supraspinatu | [place], | [phone] | | | | | s tendon, | [place] | Fax: | | | | | initial | [address] | [phone] | | | | | encounter | Phone: | | | | | | | [phone] | | | | | | | Fax: | | | | | | | [phone] | | +--------+ + + + + [...] | | right | [address] | [address] Phone: | | | | | supraspinatu | [place], | [phone] | | | | | s tendon, | [place] | Fax: | | | | | initial | [address] | [phone] | | | | | encounter | Phone: | | | | | | | [phone] | | | | | | | Fax: | | | | | | | [phone] | | +--------+ + + + + + Encounter Details +--------+---------+ + + + | Date | Type | Department | Care Team | Description | +--------+---------+ + + + | 02/23/ | Office | [facility] | Lc Vail, | Acute pain of right | | 2018 | Visit | ORTHOPEDIC SURGERY | [address] [place] [address] | shoulder; Tear of | | | | [address] [facility] | [place], [place] | right supraspinatus | | | | [place] | [address] | tendon, initial | | | | [address] | [phone] | encounter | | | | [phone] | | | +--------+---------+ + + + [...] the shoulder. Try to hold the stretch [id number]. 3. Work up to [id number] of this stretch,3times a day. Work up [...] ask your healthcare provider. Date Last Reviewed: 07/16/201719998470-2966 [employer]. [address] [place] [address]. All [facility] ts reserved. This information is not intended as a substitute for professional medical care. Always follow your healthcare professional's instructions. in this encounter Progress Notes Lc Vail MD - 02/23/2018 1330 PDTFormatting of this note may be different from the original. [facility] HISTORY AND PHYSICAL EXAMINATION Pt. [...] COLONOSCOPY; Surgeon: Luther Brito MD; Location: [facility] MEDICAL PROCEDURE UNIT DILATION AND CURETTAGE OF UTERUS ELBOW SURGERY FINGER TRIGGER RELEASE 2002 FINGER TRIGGER RELEASE 2010 GASTRIC BYPASS SURGERY 2004 HYSTERECTOMY 05/14/1980 JOINT REPLACEMENT Bilateral 2007,2008 KNEE ARTHROSCOPY 2005 LAPAROSCOPY 01/27/2015 LAPAROTOMY 2008 ROTATOR CUFF REPAIR 2005 SPINE SURGERY TONSILLECTOMY 1964 UPPER GASTROINTESTINAL ENDOSCOPY N/A 12/18/2017 Procedure: EGD; Surgeon: Luther Brito MD; Location: [facility] MEDICAL PROCEDURE UNIT Allergies: Allergies Allergen Reactions Codeine Sulfate Nausea Only Levofloxacin Hives, Itching and Rash Amitriptyline Hcl Other (See Comments) Confused and questionable for seizures Zyiinvqylp-Uxhd-Rktctegs Hives and Rash Cephalexin Hives Ciprofloxacin Hives [...] 1. Acute pain of right shoulder * [facility] Physical Therapy - AMB Referral triamcinolone acetonide (KENALOG-40) 40 mg/mL injection 40 mg 2. Tear of right supraspinatus tendon, initial encounter * [facility] Physical Therapy - AMB Refe rral [...] injection. She is very symptomatic at the [facility] ent and states that she has a hard time sleeping at night. The injection should help with h er pain. It should also allow her to do physical therapy. This is not an acute injury and a course of nonoperative management is indicated prior to consideration of surgical interven tion. Of note, she presented to [facility] today. I asked her to stay [...] made to ensure accuracy; however, inadvertent computerized dental specialist errors may be pre sent. I appreciate [...] KAY | | | | | | [place] [address] | | | | | | [phone] | | | | | | | | +--------+---------+ + + + | 04/26/ | Office | Orthopedic Surgery | Alanis, | | 2017 | Visit | | MD Petrona | | | | | | [address] | | | | | | [place] [address] | | | | | | [phone] | | | | | | | | | | | | Lc Vail MD | | | | | | [address] [facility] | | | | | | [place] | | | | | | [address] | | | | | | [phone] | | | | | | | [...]
--- OUTSIDE RECORDS SUMMARY | ~2018-03-05 | XMS | Encounter Summary ---
Demographics + + + | Address | [address] | | | [place] [address] | + + + | Home Phone [...] Providers + +------+ + | Care C Consultant Name | Role | Phone | [...] | | 2017 | | MEDICINE [address] [place] [address] | MD Petrona | | | | | [facility] | [address] [place] [place] [address] | | | | | [place] [address] | [place] [address] | | | | | [phone] | [phone] | | | | | | | [...] | | | | | [place] [address] | | | | | | [phone] | | | | | | | | +--------+---------+ + + + | 04/26/ | Office | Orthopedic Surgery | Alanis, | | | 2017 | Visit | | MD Petrona | | | | | | [address] [facility] | | | | | | [place] [address] | | | | | | [phone] | | | | | | | | | | | | Lc Vail MD | | | | | | [address] [place] | | | | | | [place] | | | | | | [address] | | | | | | [phone] | | | | | | | | +--------+---------+ + + + as of this encounter Visit Diagnoses Not on filein this encounter"
--- OUTSIDE RECORDS SUMMARY | ~2018-03-05 | XMS | Encounter Summary ---
Demographics + + + | Address | [address] | | | [place] [address] | + + + | Home Phone [...] [facility] | Alanis, | Results, Imaging | | 2017 | | MEDICINE [address] [place] [address] | MD Petrona | | | | | [facility] [place] | [address] [place] [address] | | | | | [place] [address] | [place] [address] | | | | | [phone] | [phone] | | | | | | | [...] | | | | | [place] [address] | | | | | | [phone] | | | | | | | | +--------+---------+ + + + | 04/26/ | Office | Orthopedic Surgery | Alanis, | | | 2017 | Visit | | MD Petrona | | | | | | [address] [place] | | | | | | [place] [address] | | | | | | [phone] | | | | | | | | | | | | Lc Vail MD | | | | | | [address] [place] | | | | | | [place] | | | | | | [address] | | | | | | [phone] | | | | | | | | +--------+---------+ + + + as of this encounter Visit Diagnoses Not on filein this encounter"
--- OUTSIDE RECORDS SUMMARY | ~2018-03-05 | XMS | Clinical Summary ---
Demographics + + + | Address | [address] | | | [place] [address] | + + + | Home Phone [...] Providers + +------+ + | Care Linux Admin Engineer Name | Role | Phone | + +------+ + | Sulaiman Carrera MD | PP | Unavailable | + +------+ + Source Comments MARK is fully live on both EpicCare Ambulatory and EpicCare InPatient.[facility], [facility] University Allergies + + + + + [...] + + + + + + | Iaeubcj-Unqvmhhqqr-G | | | 08/29/19 | Balance problems [...] in | | | | | | [facility]) | | | | | [...] | imbalances, sleep apnea, neck pain, medication [id number] | + + + + + | [...] | | | | | | [place], [place] | | | | | | [address] | | | | | | [phone] | | | | | | | [...] | re | [address] | [place] [address] | | | B | | | | | + +--------+ +--------+ + + | MANUFACTURING ENGINEERING INTERN MEDICAID | MANUFACTURING ENGINEERING INTERN | xxxxxxxx | Medica | | | [...] | 9 | +1- | [place] [address] | | | bijan | | | 8583 | | + +--------+ +--------+ + + | BELINDA MEEHAN | Medica | Self | [birth year] | Home: | [address] | | | re | | 1959 | +- | [place] [address] | | | Recurr | | | 8583 | | | | ing | | | | | + +--------+ +--------+ + +
--- OUTSIDE RECORDS SUMMARY | ~2018-03-05 | XMS | Encounter Summary ---
Demographics + + + | Address | [address] | | | [place] [address] | + + + | Home Phone [...] Providers + +------+ + | Care Rn Imaging Name | Role | Phone | [...] + + | 02/24/ | Refill | [facility] | Alanis, | Medication Refill | | 2017 | | MEDICINE [address] [place] [address] | MD Petrona | | | | | [facility] | [address] [place] [address] | | | | | [place] [address] | [place] [address] | | | | | [phone] | [phone] | | | | | | | [...] | | | | | [place] [address] | | | | | | [phone] | | | | | | | | +--------+---------+ + + + | 04/26/ | Office | Orthopedic Surgery | Alanis, | | | 2017 | Visit | | MD Petrona | | | | | | [address] [facility] | | | | | | [place] [address] | | | | | | [phone] | | | | | | | | | | | | Lc Vail MD | | | | | | [address] [place] | | | | | | [place] | | | | | | [address] | | | | | | [phone] | | | | | | | | +--------+---------+ + + + as of this encounter Visit Diagnoses Not on filein this encounter"
--- OUTSIDE RECORDS SUMMARY | ~2018-03-05 | XMS | Encounter Summary ---
Demographics + + + | Address | [address] | | | [place] [address] | + + + | Home Phone [...] Team Providers + +------+ + | Care Merchant Banker Name | Role | Phone | + +------+ + | Petrona Thapa | PCP | | | MD | | | + +------+ + Encounter Details +--------+ + + + + | Date | Type | Department | Care Team | Description | +--------+ + + + + | 12/18/ | Hospital | [facility] | Luther Brito MD | Abdominal pain, | | 2018 | Encounter | [facility] | [address] | unspecified | | | | [address] | [address] [place] | abdominal location; | | | | [place], [place] | [place] [address] | Gastroesophageal | | | | [address] | [phone] | reflux disease, | | | | [phone] | | esophagitis presence | | | [...] + | Blood Pressure | 115/75 | 12/18/20170 PDT | + + + + | Pulse | 83 | 12/18/20170 PDT | + + + + | Temperature | 36.5 C (97.7 F) | 12/18/2017 1201 PDT | + + + + | Respiratory Rate | 15 | 12/18/20171229 PDT | + + + + | Oxygen Saturation | 97% | 12/18/20171229 PDT | + + + [...] You can't be awakened Date Last Reviewed: 04/01/201619995197-5325 [employer]. [address] [place] [address]. All righ ts reserved. This information is [...] | 2017 | Visit | | MD Petorna | | | | | | [address] [facility] | | | | | | [place] [address] | | | | | | [phone] | | | | | | | | +--------+---------+ + + + | 04/26/ | Office | Orthopedic Surgery | Alanis, | | | 2017 | Visit | | MD Petrona | | | | | | [address] | | | | | | [place] [address] | | | | | | [phone] | | | | | | | | | | | | Lc Vail MD | | | | | | [address] | | | | | | [place] | | | | | | [address] | | | | | | [phone] | | | | | | | [...] 12/18/2017 | [facility] | | 10:49 AMMRN: [id number] #: [id number] of : | | | 9Admit Type: AmbulatoryAge: 57Room: [facility] 01Gender: FemaleNote | | | Status: FinalizedAttending MD: Luther Brito , | | | MDProcedure: Upper GI | | | endoscopyIndications: Generalized abdominal pain, | | | Heartburn, Suspected esophageal | | | reflux, DiarrheaProviders: Luther Brito MD, | | | Maris Epperson RN, Tal Diaz, | | | [facility], Ruben Kumar MD | | | [...] the anesthesiologist | | | and the air technician in the pre-procedure area in the [...] This was | | | traversed. The ajcoy-dv-nvubfkr limb was characterized by healthy | | | appearing mucosa. The jejunojejunal anastomosis was | | | characterized by healthy appearing mucosa. The | | | voagenfw-be-pguhlat limb was not examined as it could [...] Scope In: 11:00:36 AMScope Out: 11:08:34 AM [place] | | | [facility], [address] [place] [address] | | | [address] | | |Luther Brito MD | | |12/18/2017 11:59:34 AM | | |This report has been signed electronically. | | |Number of Addenda: 0 | | |Note Initiated On: 12/18/2017 10:49 AM | | |Total Procedure Duration: 0 hours 7 minutes 58 seconds | | |Scope In: 11:00:36 AM | | |Scope Out: 11:08:34 AM | | | [place] [facility], [address] [place] [address] | | | [address] | | + + ---+ + +---------+ + + | Performing | Address | City/State/Zipcode | Phone Number | | Organization | | | | + +---------+ + + | [facility] | | | | + +---------+ + + COLONOSCOPY (12/18/2017 1043) + + ---+ | Narrative | Performed At | + + ---+ | | [facility] | | GastroenterologyPatient Name: Belinda Lili Date: 12/18/2017 | [facility] | | 10:43 AMMRN: [id number] #: [id number] of : | | | 9Admit Type: AmbulatoryAge: 57Room: [facility] 01Gender: FemaleNote | | | Status: FinalizedAttending MD: Luther Brito , | | | MDProcedure: ColonoscopyIndications: | | | Generalized abdominal pain, Chronic diarrheaProviders: | | | Luther Brito MD, Maris Epperson RN, Tal Diaz, | | | [facility], Ruben Kumar MD | | | [...] the anesthesiologist | | | and the air technician in the pre-procedure area in the [...] | | 11:12:28 AMScope Out: 11:56:57 AM [facility] | | | [place], [address] [place] [address] | | | - Return to GI [...] |Scope Out: 11:56:57 AM | | | [facility], [address] [place] [address] | | | [address] | | + + ---+ + +---------+ [...] for specific diagnostic | | | abnormality. VR:[facility]:C2NR GROSS DESCRIPTION: Received in five | [...] | and slide preparation were performed by [facility], [address] | | [facility], [address], [place] [address] (Manager Strategic Marketing: Stephen | | | Joanna Jacobson CLIA#: [id number]). Professional interpretation was | | | performed by [facility], [facility] | | | Branch, [address] [place] [address] (Medical | | | Director: Stephen Jacobson M.D.; CLIA#: [id number]). | | | Diagnostician: Stephen Jacobson MD [...] + | History of gastric ulcer | + + | Personal history of other diseases of digestive system | + + | Diarrhea, unspecified type | + + Admitting Diagnoses + + | Diagnosis | [...]
--- OUTSIDE RECORDS SUMMARY | ~2018-03-05 | XMS | Encounter Summary ---
Demographics + + + | Address | [address] | | | [place] [address] | + + + | Home Phone [...] + + | 01/25/ | Telephone | [facility] | Alanis, | Medical Problem | | 2017 | | MEDICINE [address] [place] [address] | MD Petrona | | | | | [facility] | [address] [place] [address] | | | | | [place] [address] | [place] [address] | | | | | [phone] | [phone] | | | | | | | [...] KAY | | | | | | [place] [address] | | | | | | [phone] | | | | | | | | +--------+---------+ + + + | 04/26/ | Office | Orthopedic Surgery | Alanis, | | | 2017 | Visit | | MD Petrona | | | | | | [address] | | | | | | [place] [address] | | | | | | [phone] | | | | | | | | | | | | Lc Vail MD | | | | | | [address] [place] | | | | | | [place], [place] | | | | | | [address] | | | | | | [phone] | | | | | | | | +--------+---------+ + + + as of this encounter Visit Diagnoses Not on filein this encounter"
--- OUTSIDE RECORDS SUMMARY | ~2018-03-05 | XMS | Encounter Summary ---
Demographics + + + | Address | [address] | | | [place] [address] | + + + | Home Phone [...] Team Providers + +------+ + | Care Printing Pressman Name | Role | Phone | + +------+ + | Petrona Thapa | PCP | | | MD | | | + +------+ + Encounter Details +--------+ + + + + | Date | Type | Department | Care Team | Description | +--------+ + + + + | 12/18/ | Hospital | [facility] | Luther Brito MD | Abdominal pain, | | 2018 | Encounter | [facility] | [address] | unspecified | | | | [address] | [address] [place] | abdominal location; | | | | [place], [place] | [place] [address] | Gastroesophageal | | | | [address] | [phone] | reflux disease, | | | | [phone] | | esophagitis presence | | | [...] You can't be awakened Date Last Reviewed: 04/01/201619994237-0744 [employer]. [address] [place] [address]. All righ ts reserved. This information is [...] | | | | [address] [facility] | | | | | | [place] [address] | | | | | | [phone] | | | | | | | | +--------+---------+ + + + | 04/26/ | Office | Orthopedic Surgery | Alanis, | | | 2017 | Visit | | MD Petrona | | | | | | [address] | | | | | | [place] [address] | | | | | | [phone] | | | | | | | | | | | | Lc Vail MD | | | | | | [address] | | | | | | [place] | | | | | | [address] | | | | | | [phone] | | | | | | | [...] 12/18/2017 | PROVATION | | 10:49 AMMRN: [id number] #: [id number] of : | | | 9Admit Type: AmbulatoryAge: 57Room: [facility] 01Gender: FemaleNote | | | Status: FinalizedAttending MD: Luther Brito , | | | MDProcedure: Upper GI | | | endoscopyIndications: Generalized abdominal pain, | | | Heartburn, Suspected esophageal | | | reflux, DiarrheaProviders: Luther Brito MD, | | | Maris Epperson RN, Tal Diaz, | | | [facility], Ruben Kumar MD | | [...] the anesthesiologist | | | and the copier repair technician in the pre-procedure area in [...] This was | | | traversed. The ryjfj-md-ixerogd limb was characterized by healthy | | | appearing mucosa. The jejunojejunal anastomosis was | | | characterized by healthy appearing mucosa. The | | | jlklifom-tz-xrqvbhp limb was not examined as it could [...] Scope In: 11:00:36 AMScope Out: 11:08:34 AM [place] | | | [facility], [address] [place] [address] | | | [address] | | |Luther Brito MD | | |12/18/2017 11:59:34 AM | | |This report has been signed electronically. | | |Number of Addenda: 0 | | |Note Initiated On: 12/18/2017 10:49 AM | | |Total Procedure Duration: 0 hours 7 minutes 58 seconds | | |Scope In: 11:00:36 AM | | |Scope Out: 11:08:34 AM | | | [place] [facility], [address] [place] [address] | | | [address] | | + + ---+ + +---------+ [...] 12/18/2017 | PROVATION | | 10:43 AMMRN: [id number] #: [id number] of : | | | 9Admit Type: AmbulatoryAge: 57Room: [facility] 01Gender: FemaleNote | | | Status: FinalizedAttending MD: Luther Brito , | | | MDProcedure: ColonoscopyIndications: | | | Generalized abdominal pain, Chronic diarrheaProviders: | | | Luther Brito MD, Maris Epperson RN, Tal Diaz, | | | [facility], Ruben Kumar MD | | [...] the anesthesiologist | | | and the copier repair technician in the pre-procedure area in [...] | 11:12:28 AMScope Out: 11:56:57 AM [facility] | | | [place], [address] [place] [address] | | | - Return to GI [...] |Scope Out: 11:56:57 AM | | | [facility], [address] [place] [address] | | | [address] | | + + ---+ + +---------+ [...] for specific diagnostic | | | abnormality. [facility]:C2NR GROSS DESCRIPTION: Received in five | | [...] | and slide preparation were performed by [employer], [address] | | [facility], [address], [place] [address] (Face Burler: Stephen | | | Joanna Jacobson CLIA#: [id number]). Professional interpretation was | | | performed by [employer], [facility] | | | Branch, [address] [place] [address] (Medical | | | Director: Stephen Jacobson M.D.; CLIA#: [id number]). | | | Diagnostician: Stephen Jacobson MD [...]
--- OUTSIDE RECORDS SUMMARY | ~2018-03-05 | XMS | Encounter Summary ---
Demographics + + + | Address | [address] | | | [place] [address] | + + + | Home Phone [...] + + | 12/10/ | Telephone | [facility] | Alanis, | Lab Results | | 2017 | | MEDICINE [address] [place] [address] | MD Petrona | | | | | [facility] | [address] [place] [address] | | | | | [place] [address] | [place] [address] | | | | | [phone] | [phone] | | | | | | | [...] | | | | | [place] [address] | | | | | | [phone] | | | | | | | | +--------+---------+ + + + | 04/26/ | Office | Orthopedic Surgery | Emmy-Kamlesh, | | | 2017 | Visit | | MD Petrona | | | | | | [address] | | | | | | [place] [address] | | | | | | [phone] | | | | | | | | | | | | Lc Vail MD | | | | | | [address] | | | | | | [place] | | | | | | [address] | | | | | | [phone] | | | | | | | | +--------+---------+ + + + as of this encounter Visit Diagnoses Not on filein this encounter"
--- OUTSIDE RECORDS SUMMARY | ~2018-03-05 | XMS | Encounter Summary ---
Demographics + + + | Address | [address] | | | [place] [address] | + + + | Home Phone [...] Providers + +------+ + | Care Carton Stamper Name | Role | Phone | [...] + | 12/26/ | Refill | [facility] | Alanis, | Medication Refill | | 2017 | | MEDICINE [address] [place] [address] | MD Petrona | | | | | [facility] | [address] [place] [address] | | | | | [place] [address] | [place] [address] | | | | | [phone] | [phone] | | | | | | | [...] | | | | | [place] [address] | | | | | | [phone] | | | | | | | | +--------+---------+ + + + | 04/26/ | Office | Orthopedic Surgery | Alanis, | | | 2017 | Visit | | MD Petrona | | | | | | [address] [facility] | | | | | | [place] [address] | | | | | | [phone] | | | | | | | | | | | | Lc Vail MD | | | | | | [address] [place] | | | | | | [place] | | | | | | [address] | | | | | | [phone] | | | | | | | | +--------+---------+ + + + as of this encounter Visit Diagnoses Not on filein this encounter"
--- OUTSIDE RECORDS SUMMARY | ~2018-03-05 | XMS | Encounter Summary ---
Demographics + + + | Address | [address] | | | [place] [address] | + + + | Home Phone [...] + + | 01/01/ | Refill | [facility] | Alanis, | Medication Refill | | 2017 | | MEDICINE [address] [place] [address] | MD Petrona | | | | | [facility] | [address] [place] [address] | | | | | [place] [address] | [place] [address] | | | | | [phone] | [phone] | | | | | | | [...] | | | | | [place] [address] | | | | | | [phone] | | | | | | | | +--------+---------+ + + + | 04/26/ | Office | Orthopedic Surgery | Alanis, | | | 2017 | Visit | | MD Petrona | | | | | | [address] [facility] | | | | | | [place] [address] | | | | | | [phone] | | | | | | | | | | | | Lc Vail MD | | | | | | [address] [place] | | | | | | [place] | | | | | | [address] | | | | | | [phone] | | | | | | | | +--------+---------+ + + + as of this encounter Visit Diagnoses Not on filein this encounter"
--- OUTSIDE RECORDS SUMMARY | ~2018-03-05 | XMS | Encounter Summary ---
Demographics + + + | Address | [address] | | | [place] [address] | + + + | Home Phone [...] Team Providers + +------+ + | Care Blindmaker Name | Role | Phone | + +------+ + | Petrona Thapa | PCP | | | MD | | | + +------+ + Encounter Details +--------+---------+ + + + | Date | Type | Department | Care Team | Description | +--------+---------+ + + + | 12/18/ | Surgery | [facility] | Luther Brito MD | EGD | | 2018 | | MED CTR MP INTRA OP | [address] | | | | | [address] | [address] [place] | | | | | [place], [place] | [place] [address] | | | | | [address] | [phone] | | | | | [phone] | | | +--------+---------+ + + + [...] You can't be awakened Date Last Reviewed: 04/01/201619997649-3900 The [employer]. [address] [place] [address]. All righ ts reserved. This information is [...] | | | | | [place] [address] | | | | | | [phone] | | | | | | | | +--------+---------+ + + + | 04/26/ | Office | Orthopedic Surgery | Alanis, | | | 2017 | Visit | | MD Petrona | | | | | | [address] | | | | | | [place] [address] | | | | | | [phone] | | | | | | | | | | | | Lc Vail MD | | | | | | [address] | | | | | | [place] | | | | | | [address] | | | | | | [phone] | | | | | | | [...] 12/18/2017 | PROVATION | | 10:49 AMMRN: [id number] #: [id number] of : | | | 9Admit Type: AmbulatoryAge: 57Room: [facility] 01Gender: FemaleNote | | | Status: FinalizedAttending MD: Luther Brito , | | | MDProcedure: Upper GI | | | endoscopyIndications: Generalized abdominal pain, | | | Heartburn, Suspected esophageal | | | reflux, DiarrheaProviders: Luther Brito MD, | | | Maris Epperson RN, aTl Diaz, | | | [facility], Ruben Kumar MD | | | (Anesthesia [...] the anesthesiologist | | | and the behavioral health technician in the pre-procedure area in the [...] This was | | | traversed. The fjsos-rf-rphwaei limb was characterized by healthy | | | appearing mucosa. The jejunojejunal anastomosis was | | | characterized by healthy appearing mucosa. The | | | avgoelbw-gc-wdhiaze limb was not examined as it could [...] Scope In: 11:00:36 AMScope Out: 11:08:34 AM [place] | | | [facility], [address] [place] [address] | | | [address] | | |Luther Brito MD | | |12/18/2017 11:59:34 AM | | |This report has been signed electronically. | | |Number of Addenda: 0 | | |Note Initiated On: 12/18/2017 10:49 AM | | |Total Procedure Duration: 0 hours 7 minutes 58 seconds | | |Scope In: 11:00:36 AM | | |Scope Out: 11:08:34 AM | | | [facility], [address] [place] [address] | | | [address] | | + + ---+ + +---------+ [...] 12/18/2017 | PROVATION | | 10:43 AMMRN: [id number] #: [id number] of : | | | [address]dmit Type: AmbulatoryAge: 57Room: [facility] 01Gender: FemaleNote | | | Status: FinalizedAttending MD: Luther Brito , | | | MDProcedure: ColonoscopyIndications: | | | Generalized abdominal pain, Chronic diarrheaProviders: | | | Luther Brito MD, Maris Epperson RN, Tal Diaz, | | | [facility], Ruben Kumar MD | | | (Anesthesia [...] the anesthesiologist | | | and the behavioral health technician in the pre-procedure area in the [...] | | 11:12:28 AMScope Out: 11:56:57 AM [facility] | | | [place], [address] [place] [address] | | | - Return to GI [...] | | [facility], [address] [place] [address] | | | [address] | | + + ---+ + +---------+ [...] for specific diagnostic | | | abnormality. JVR:[facility]:C2NR GROSS DESCRIPTION: Received in five | | [...] | and slide preparation were performed by [employer], [address], [place] [address] (Admitted Attorneys: Stephen Jacobson M.D. CLIA#: [id number]). Professional interpretation was | | | performed by [facility], [facility] | | | Branch, [address] [place] [address] (Medical | | | Director: Stephen Jacobson M.D.; CLIA#: [id number]). | | | Diagnostician: Stephen Jacobson MD Pathologist Electronically | | | Signed 12/21/2017 | | + + + + +---------+ + + | Performing | Address | City/State/[facility] Centercode | Phone Number | | Organization | | | | + +---------+ + + | [facility] | | | | | [id number] | | | | + +---------+ + [...]
--- OUTSIDE RECORDS SUMMARY | ~2018-03-05 | XMS | Encounter Summary ---
Demographics + + + | Address | [address] | | | [place] [address] | + + + | Home Phone [...] Team Providers + +------+ + | Care Manuscripts Archivist Name | Role | Phone | [...] + + | 03/04/ | Telephone | [facility] | Alanis, | Fever | | 2018 | | MEDICINE [address] [place] [address] | MD Petrona | | | | | [facility] [place] | [address] [place] [address] | | | | | [place] [address] | [place] [address] | | | | | [phone] | [phone] | | | | | | | [...] | | | | | [address] [place] | | | | | | [place] [address] | | | | | | [phone] | | | | | | | | +--------+---------+ + + + | 04/26/ | Office | Orthopedic Surgery | Alanis, | | | 2018 | Visit | | MD Petrona | | | | | | [address] | | | | | | [place] [address] | | | | | | [phone] | | | | | | | | | | | | Lc Vail MD | | | | | | [address] [place] | | | | | | [place] | | | | | | [address] | | | | | | [phone] | | | | | | | | +--------+---------+ + + + as of this encounter Visit Diagnoses Not on filein this encounter"
--- OUTSIDE RECORDS SUMMARY | ~2018-03-05 | XMS | Encounter Summary ---
Demographics + + + | Address | [address] | | | [place] [address] [...] Providers + +------+ + | Care Plywood Scarfer Tender Name | Role | Phone | [...] [facility] | Alanis, | Other | | 2017 | | MEDICINE [address] [place] [place] [address] | MD Petrona | | | | | [facility] | [address] [place] [address] | | | | | [place] [address] | [place] [address] | | | | | [phone] | [phone] | | | | | | | [...] | | | | | [address] LUDW[address] CREST[place] | | | | | | [place] [address] | | | | | | [phone] | | | | | | | | +--------+---------+ + + + | 04/26/ | Office | Orthopedic Surgery | Alanis, | | | 2018 | Visit | | MD Petrona | | | | | | [address] | | | | | | [place] [address] | | | | | | [phone] | | | | | | | | | | | | Lc Vail MD | | | | | | [address] | | | | | | [place] | | | | | | [address] | | | | | | [phone] | | | | | | | | +--------+---------+ + + + as of this encounter Visit Diagnoses + + | Diagnosis | + + | Non-intractable vomiting with nausea, unspecified vomiting type - Primary | + +"
--- OUTSIDE RECORDS SUMMARY | ~2018-03-05 | XMS | Encounter Summary ---
Demographics + + + | Address | [address] | | | [place] [address] | + + + | Home Phone [...] Providers + +------+ + | Care Financial Sales Consultant Name | Role | Phone [...] + | 01/08/ | Telephone | [facility] | Alanis, | Results, Imaging | | 2017 | | MEDICINE [address] [place] [address] | MD Petrona | | | | | [facility] | [address] [place] [address] | | | | | [place] [address] | [place] [address] | | | | | [phone] | [phone] | | | | | | | [...] | | | | | [place] [address] | | | | | | [phone] | | | | | | | | +--------+---------+ + + + | 04/26/ | Office | Orthopedic Surgery | Alanis, | | | 2017 | Visit | | MD Petrona | | | | | | [address] | | | | | | [place] [address] | | | | | | [phone] | | | | | | | | | | | | Lc Vail MD | | | | | | [address] [place] | | | | | | [place] | | | | | | [address] | | | | | | [phone] | | | | | | | | +--------+---------+ + + + as of this encounter Visit Diagnoses Not on filein this encounter"
--- OUTSIDE RECORDS SUMMARY | ~2018-03-05 | XMS | Encounter Summary ---
Demographics + + + | Address | [address] | | | [place] [address] | + + + | Home Phone [...] | | | | | laterality | [address] | [address] | | | | | Dysfunction | Phone: | Phone: | | | | | of left | [phone] | [phone] | | | | | eustachian | Fax: | Fax: | | | | | tube | [phone] | [phone] | + + + + + + [...] [place], | unspecified | | | | [place], [place] | [place] [address] | laterality (Primary | | | | [address] | [phone] | Dx); Dysfunction of | | | | [phone] | | left eustachian tube | +--------+ [...] | | | | | [place] [address] | | | | | | [phone] | | | | | | | | +--------+---------+ + + + | 04/26/ | Office | Orthopedic Surgery | Alanis, | | | 2017 | Visit | | MD Petrona | | | | | | [address] | | | | | | [place] [address] | | | | | | [phone] | | | | | | | | | | | | Lc Vail MD | | | | | | [address] | | | | | | [place], [place] | | | | | | [address] | | | | | | [phone] | | | | | | | [...]
--- OUTSIDE RECORDS SUMMARY | ~2018-03-05 | XMS | Encounter Summary ---
Demographics + + + | Address | [address] | | | [place] [address] | + + + | Home Phone [...] Team Providers + +------+ + | Care Sparker And Patcher Name | Role | Phone [...] + + | 02/22/ | Refill | [facility] | Alanis, | Medication Refill | | 2017 | | MEDICINE [address] [place] [address] | MD Petrona | | | | | [facility] | [address] [place] [address] | | | | | [place] [address] | [place] [address] | | | | | [phone] | [phone] | | | | | | | [...] | | | | | [place] [address] | | | | | | [phone] | | | | | | | | +--------+---------+ + + + | 04/26/ | Office | Orthopedic Surgery | Alanis, | | | 2017 | Visit | | MD Petrona | | | | | | [address] [facility] | | | | | | [place] [address] | | | | | | [phone] | | | | | | | | | | | | Lc Vail MD | | | | | | [address] [place] | | | | | | [place] | | | | | | [address] | | | | | | [phone] | | | | | | | | +--------+---------+ + + + as of this encounter Visit Diagnoses Not on filein this encounter"
--- OUTSIDE RECORDS SUMMARY | ~2018-03-05 | XMS | Encounter Summary ---
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 | [phone] | | | | | | knees | Fax: | | | | | | Procedures | [phone] | | | | | | PT [...] + + | 12/10/ | Office | [facility] | Alanis, | Elevated liver | | 2018 | Visit | MEDICINE [address] | MD Petrona | enzymes (Primary | | | | [address] [place] | [address] [facility] | Dx); Limb cramps; | | | | [place] [address] | [place] [address] | Physical | | | | [phone] | [phone] | deconditioning; | | | | | [...] is interested in doing physical therapy in [employer], pool therapy has helped in the pas [...] (See Comments) Confused and questionable for seizures Bkwkjhkait-Ezyu-Suazegpa Cephalexin Hives Duloxetine Migraines and nausea Ketorolac Hives Morphine Swelling Ropinirole Hcl Hives Tramadol Hcl Nausea Only Akvtchuvzc-Axsf-Hygqcqvm Hives and Rash Ciprofloxacin Hives and Rash [...] Note: Parts of this documentwere created using [employer] speech recognition software. As a r esult, [...] | | [facility] [address] [facility] | | | | | | [place] [address] | | | | | | [phone] | | | | | | | | +--------+---------+ + + + | 04/26/ | Office | Orthopedic Surgery | Alanis, | | | 2017 | Visit | | MD Petrona | | | | | | [address] [facility] | | | | | | [place] [address] | | | | | | [phone] | | | | | | | | | | | | Lc Vail MD | | | | | | [address] [place] | | | | | | [place] | | | | | | [address] | | | | | | [phone] | | | | | | | [...] | | | | | [facility] | | | | [...] [address] | [place] | [phone] | | [facility] | | [address] | | | - LABORATORY | | | | + + + + + | [facility] | [address] | [place] | | | [facility] | | [address] | | | - LABORATORY | | | | + + + + + Magnesium (12/10/2017 1030) + +-------+ + + | Component | Value | Ref Range | Performed At | + +-------+ + + | MG | 2.4 | 1.8 - 2.5 mg/dL | [facility] | | | | | [facility] | | | | [...] + | [facility] | [address] | [place], [place] | [phone] | | [facility] | | [address] | | | - LABORATORY | | | | + + + + + | [facility] | [address] | [place] | | | [facility] | | [address] | | | - LABORATORY | | [...] 0.9 | | | | | The [facility] recommends that | | | | | a positive HCV antibody | | | | | result be followed up | | | | | with a HCV Nucleic Acid | | | | | Amplification test | | | | | ([id number]). | | | + + + + + + + | Specimen | + + | Blood | + + + + + | Narrative | Performed At | + + + | Performed at: [facility] [address], | REFERENCE LAB | | [place], [place] [address] Palaeontologist: Bandar Gan MD, | [facility] | | Phone: [phone] | | + + + + + + + + | Performing | Address | City/State/Zipcode | Phone Number | | Organization | | | | + + + + + | REFERENCE LAB | [address] | [place] [address] | [phone] | | [facility] | Drive [facility] | | | + + + + [...]
--- OUTSIDE RECORDS SUMMARY | ~2018-03-05 | XMS | Encounter Summary ---
[...] Providers + +------+ + | Care Sql Report Writer Name | Role | Phone [...] W | | | | | | [place], | | | | | | [place] [address] | | | | | | [phone] | | | +--------+ + + + [...] | | | | | [place] [address] | | | | | | [phone] | | | | | | | | +--------+---------+ + + + | 04/26/ | Office | Orthopedic Surgery | Alanis, | | | 2017 | Visit | | MD Pertona | | | | | | [address] | | | | | | [place] [address] | | | | | | [phone] | | | | | | | | | | | | Lc Vail MD | | | | | | [address] [place] | | | | | | [place] | | | | | | [address] | | | | | | [phone] | | | | | | | | +--------+---------+ + + + as of this encounter Visit Diagnoses Not on filein this encounter"
--- OUTSIDE RECORDS SUMMARY | ~2018-03-05 | XMS | Encounter Summary ---
Demographics + + + | Address | [address] | | | [place] [address] | + + + | Home Phone [...] Providers + +------+ + | Care Product Communications Manager Name | Role | Phone [...] Acute pain | Emmy-Tajt | [address] | | | | | of right | i, | [place], | | | | | shoulder | [place] | [place] | | | | | Procedures | , MD [address] | [address] | | | | | MRI Shoulder | [address] | Phone: | | | | | Right wo | [place], | [phone] | | | | | Contrast | [place] | Fax: | | | | | | [address] | [phone] | | | | | | Phone: | | | | | | | [phone] | | | | | | | Fax: | | | | | | | [phone] | | +--------+--------+ + + + + [...] Acute pain | Emmy-Tajt | [address] | | | | | of right | i, | [place], | | | | | shoulder | [place] | [place] | | | | | Procedures | , MD [address] | [address] | | | | | MRI Shoulder | [address] | Phone: | | | | | Right wo | [place], | [phone] | | | | | Contrast | [place] | Fax: | | | | | | [address] | [phone] | | | | | | Phone: | | | | | | | [phone] | | | | | | | Fax: | | | | | | | [phone] | | +--------+--------+ + + + + [...] Acute pain | Emmy-Tajt | [address] | | | | | of right | i, | [place], | | | | | shoulder | [place] | [place] | | | | | Procedures | , MD [address] | [address] | | | | | MRI Shoulder | [address] | Phone: | | | | | Right wo | [place], | [phone] | | | | | Contrast | [place] | Fax: | | | | | | [address] | [phone] | | | | | | Phone: | | | | | | | [phone] | | | | | | | Fax: | | | | | | | [phone] | | +--------+--------+ + + + + Encounter Details +--------+ + + + + | Date | Type | Department | Care Team | Description | +--------+ + + + + | 02/17/ | Hospital | [facility] | Emmy-Kamlesh, | Acute pain of right | | 2018 | Encounter | MED CTR MRI [address] | MD Petrona | shoulder | | | | [address] [place], | [address] [place] | | | | | [place] [address] | [place] [address] | | | | | [phone] | [phone] | | | | | | | [...] | | | | | [place] [address] | | | | | | [phone] | | | | | | | | +--------+---------+ + + + | 04/26/ | Office | Orthopedic Surgery | Alanis, | | | 2017 | Visit | | MD Petrona | | | | | | [address] | | | | | | [place] [address] | | | | | | [phone] | | | | | | | | | | | | Lc Vail MD | | | | | | [address] [place] | | | | | | [place] | | | | | | [address] | | | | | | [phone] | | | | | | | [...] + + | Performing | Address | City/State/[facility] | Phone Number | | Organization | | | | + +---------+ + + | [facility] | | | | + +---------+ + + in this encounter Visit Diagnoses + + | Diagnosis | + + | Acute pain of right shoulder | + +"
--- OUTSIDE RECORDS SUMMARY | ~2018-03-05 | XMS | Encounter Summary ---
Demographics + + + | Address | [address] | | | [place] [address] | + + + | Home Phone [...] Team Providers + +------+ + | Care Deaf Teacher Name | Role | Phone | + +------+ + | Petrona Thapa | PCP | | | MD | | | + +------+ + Encounter Details +--------+ + + + + | Date | Type | Department | Care Team | Description | +--------+ + + + + | 12/18/ | Hospital | [facility] | Luther Brito MD | Abdominal pain, | | 2018 | Encounter | MED CTR MP INTRA OP | [address] | unspecified | | | | [address] | [address] [place] | abdominal location; | | | | [place], [place] | [place] [address] | Gastroesophageal | | | | [address] | [phone] | reflux disease, | | | | [phone] | | esophagitis presence | | | [...] You can't be awakened Date Last Reviewed: 04/01/201619998063-5992 [employer] [place] [address]. All righ ts reserved. This information is [...] | | | | | [address] [facility] | | | | | | [place] [address] | | | | | | [phone] | | | | | | | | +--------+---------+ + + + | 04/26/ | Office | Orthopedic Surgery | Alanis, | | | 2017 | Visit | | MD Petrona | | | | | | [address] | | | | | | [place] [address] | | | | | | [phone] | | | | | | | | | | | | Lc Vail MD | | | | | | [address] | | | | | | [place] | | | | | | [address] | | | | | | [phone] | | | | | | | [...] 12/18/2017 | [facility] | | 10:49 AMMRN: [id number] #: [id number] of : | | | 9Admit Type: AmbulatoryAge: 57Room: [facility] 01Gender: FemaleNote | | | Status: FinalizedAttending MD: Luther Brito , | | | MDProcedure: Upper GI | | | endoscopyIndications: Generalized abdominal pain, | | | Heartburn, Suspected esophageal | | | reflux, DiarrheaProviders: Luther Brito MD, | | | Maris Epperson RN, Tal Diaz, | | | [facility], Ruben Kumar MD | | | (Anesthesia [...] the anesthesiologist | | | and the equipment engineering technician in the pre-procedure area in the [...] This was | | | traversed. The kllkx-hs-dadobxg limb was characterized by healthy | | | appearing mucosa. The jejunojejunal anastomosis was | | | characterized by healthy appearing mucosa. The | | | ffldmczq-ou-kzebkyq limb was not examined as it could [...] Scope In: 11:00:36 AMScope Out: 11:08:34 AM [place] | | | [facility], [address] [place] [address] | | | [id number] | | |Luther Brito MD | | |12/18/2017 11:59:34 AM | | |This report has been signed electronically. | | |Number of Addenda: 0 | | |Note Initiated On: 12/18/2017 10:49 AM | | |Total Procedure Duration: 0 hours 7 minutes 58 seconds | | |Scope In: 11:00:36 AM | | |Scope Out: 11:08:34 AM | | | [place] [facility], [address] [place] [address] | | | [id number] | | + + ---+ + +---------+ [...] 12/18/2017 | [facility] | | 10:43 AMMRN: [id number] #: [id number] of : | | | 9Admit Type: AmbulatoryAge: 57Room: [facility] 01Gender: FemaleNote | | | Status: FinalizedAttending MD: Luther Brito , | | | MDProcedure: ColonoscopyIndications: | | | Generalized abdominal pain, Chronic diarrheaProviders: | | | Luther Brito MD, Maris Epperson RN, Tal Diaz, | | | [facility], Ruben Kumar MD | | | (Anesthesia [...] the anesthesiologist | | | and the equipment engineering technician in the pre-procedure area in the [...] | | 11:12:28 AMScope Out: 11:56:57 AM [facility] | | | [place], [address] [place] [address] | | | - Return to GI [...] |Scope Out: 11:56:57 AM | | | [facility], [address] [place] [address] | | | [id number] | | + + ---+ + +---------+ [...] for specific diagnostic | | | abnormality. [facility]C2NR GROSS DESCRIPTION: Received in five | [...] | and slide preparation were performed by [facility], [address] | | [facility], [address], [place] [address] (Filter Press Tender Head: Stephen | | | Joanna Jacobson CLIA#: [id number]). Professional interpretation was | | | performed by [facility], [facility] | | | Branch, [address] [place] [address] (Medical | | | Director: Stephen Jacobson M.D.; CLIA#: [id number]). | | | Diagnostician: Stephen Jacobson MD [...]
--- OUTSIDE RECORDS SUMMARY | ~2018-03-05 | XMS | Encounter Summary ---
Demographics + + + | Address | [address] | | | [place] [address] | + + + | Home Phone [...] Team Providers + +------+ + | Care Slug Press Operator Name | Role | Phone [...] + + | 01/20/ | Refill | [facility] | Alanis, | Medication Refill | | 2017 | | MEDICINE [address] [place] [address] | MD Petrona | | | | | [facility] | [address] [place] [address] | | | | | [place] [address] | [place] [address] | | | | | [phone] | [phone] | | | | | | | [...] | | | | | [place] [address] | | | | | | [phone] | | | | | | | | +--------+---------+ + + + | 04/26/ | Office | Orthopedic Surgery | Alanis, | | | 2017 | Visit | | MD Petrona | | | | | | [address] [facility] | | | | | | [place] [address] | | | | | | [phone] | | | | | | | | | | | | Lc Vail MD | | | | | | [address] [place] | | | | | | [place] | | | | | | [address] | | | | | | [phone] | | | | | | | | +--------+---------+ + + + as of this encounter Visit Diagnoses Not on filein this encounter"
--- OUTSIDE RECORDS SUMMARY | ~2018-03-05 | XMS | Encounter Summary ---
Demographics + + + | Address | [address] | | | [place] [address] | + + + | Home Phone [...] Team Providers + +------+ + | Care Institute Director Name | Role | Phone | [...] + | 12/10/ | Telephone | [facility] | Alanis, | Lab Results | | 2017 | | MEDICINE [address] [place] [address] | MD [place] | | | | | [facility] | [address] [place] [address] | | | | | [place] [address] | [place] [address] | | | | | [phone] | | | | | | | [...] | | | | | [place] [address] | | | | | | [phone] | | | | | | | | +--------+---------+ + + + | 04/26/ | Office | Orthopedic Surgery | Emmy-Kamlesh, | | | 2017 | Visit | | MD Petrona | | | | | | [address] | | | | | | [place] [address] | | | | | | [phone] | | | | | | | | | | | | Lc Vail MD | | | | | | [address] | | | | | | [place] | | | | | | [address] | | | | | | [phone] | | | | | | | | +--------+---------+ + + + as of this encounter Visit Diagnoses Not on filein this encounter"
--- OUTSIDE RECORDS SUMMARY | ~2018-03-05 | XMS | Encounter Summary ---
Demographics + + + | Address | [address] | | | [place] [address] | + + + | Home Phone [...] Providers + +------+ + | Care Associate Field Service Engineer Name | Role | Phone [...] | 03/02/ | Telephone | [facility] | Alanis, | Results, Imaging | | 2017 | | MEDICINE [address] [place] [address] | MD Petrona | | | | | [facility] | [address] [place] [address] | | | | | [place] [address] | [place] [address] | | | | | [phone] | | | | | | | [...] | | | | | [place] [address] | | | | | | [phone] | | | | | | | | +--------+---------+ + + + | 04/26/ | Office | Orthopedic Surgery | Alanis, | | | 2017 | Visit | | MD [place]rona | | | | | | [address] [place] | | | | | | [place] [address] | | | | | | [phone] | | | | | | | | | | | | Lc Vail MD | | | | | | [address] [place] | | | | | | [place] | | | | | | [address] | | | | | | [phone] | | | | | | | | +--------+---------+ + + + as of this encounter Visit Diagnoses Not on filein this encounter"
--- OUTSIDE RECORDS SUMMARY | ~2018-03-05 | XMS | Encounter Summary ---
Demographics + + + | Address | [address] | | | [place] [address] | + + + | Home Phone [...] Team Providers + +------+ + | Care Sharples Machine Operator Name | Role | Phone [...] + + | 01/08/ | Telephone | [facility] | Alanis, | Results, Imaging | | 2017 | | MEDICINE [address] [place] [address] | MD [place]ron[place] | | | | | [facility] | [address] [place] [address] | | | | | [place] [address] | [place] [address] | | | | | [phone] | | | | | | | [...] | | | | | [place] [address] | | | | | | [phone] | | | | | | | | +--------+---------+ + + + | 04/26/ | Office | Orthopedic Surgery | Alanis, | | | 2017 | Visit | | MD Petrona | | | | | | [address] | | | | | | [place] [address] | | | | | | [phone] | | | | | | | | | | | | Lc Vail MD | | | | | | [address] [place] | | | | | | [place] | | | | | | [address] | | | | | | [phone] | | | | | | | | +--------+---------+ + + + as of this encounter Visit Diagnoses Not on filein this encounter"
[~2018-03-05 17:00] MED LIST changes: -CALCIUM + VITA1 EACH PO; +CALCIUM500 MG PO; +EVZIO2 MG/0.4 M IM; -LEVOTHROID50 MCG PO; +LEVOTHYROXINE75 MCG PO; +MACRODANTIN100 MG PO; +MECLIZINE HCL25 MG PO; -MULTIVITAMINS1 EAC7 PO; +MULTIVITAMINS1 EAC8 PO; +PHENERGAN25 MG PR; +RECLAST 55 MG/100 M IV
--- OUTSIDE RECORDS SUMMARY | 2018-03-05 17:04 | XMS ---
PreManage Notification: NAFISA GALARZA Security Chicken Sexer Events No recent Security Events currently on file CRITERIA MET - Group Notification - [facility] - 2 Visits in 30 Days CARE PROVIDERS [place], Internal Medicine Current JOHNNY PHONE: [phone] Helio Vasquez MD PHONE: Unknown Daniella has no Care Guidelines for this patient. Mona VISIT COUNT (12 MO.) [address] [place] [address] TOTAL 4 NOTE: Visits indicate total known visits. ED/UCC VISIT TRACKING (12 MO.) 03/05/2018 17:00 [facility] [place] TYPE: Emergency COMPLAINT: - VOMITING 03/04/2018 09:30 [facility] [place] TYPE: Emergency COMPLAINT: - VOMITING 06/25/2017 09:52 [facility] [place] TYPE: Emergency COMPLAINT: - NAUSEA/VOMITING DIAGNOSES: - Nausea with vomiting, unspecified - Allergy status to narcotic agent status - Migraine, unspecified, not intractable, without status migrainosus - Allergy status to sulfonamides status - Other remote computer terminal operator (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 - Allergy status to other antibiotic agents status - Personal history of nicotine dependence - Allergy status to analgesic agent status - Allergy status to other drugs, medicaments and biological substances status - Allergy status to penicillin 05/12/2017 16:54 [facility] [place] TYPE: Emergency COMPLAINT: - SORE THROAT DIAGNOSES: - Encounter for other general examination - Acute pharyngitis, unspecified INPATIENT VISIT TRACKING (12 MO.) No inpatient visits to display in this time frame [id number]
--- NOTE | 2018-03-05 20:50 | NUR ---
PT ARRIVES TO FLOOR VIA STRETCHER. PT PULLED OVER TO BED WITH ASSISTANCE. PT REPORTS DISCOMFORT TO THROAT AND EAR DUE TO NG TUBE. PT REPORTS NAUSEA. PRN ZOFRAN ADMINISTERED. PT ORIENTED TO ROOM AND CALL LIGHT SYSTEM. PT PROVIDED WITH ORAL SWABS, UNDERSTANDS NPO STATUS. PT DENIES FURTHER NEEDS AT THIS TIME. CALL LIGHT IN PT'S LAP.
--- NOTE | 2018-03-05 22:30 | NUR ---
ASSISTED PATIENT UP TO THE BSC. 1PA PATIENT TOLERATED WELL. PATIENT HAD VERY SMALL BM AND VOIDED WELL. STATED SHE "CAN'T BREATH WELL". ENCOURAGED HER TO BREATH THROUGH HER MOUTH, SHE WAS ATTEMPTING TO TAKE DEEP BREATHS THROUGH HER NOSE WITH THE NG TUBE IN PLACE. PATIENT WAS ABLE TO RELAX SOME. ASSISTED HER BACK INTO BED. NG TUBE IN PLACE, LIWS. IV FLUIDS PER ORDER, SITE WNL. SCDS IN PLACE. CALL LIGHT IN REACH. PATIENT REQUESTING MOUTH SWABS, PLACED AT BEDSIDE.
--- NOTE | 2018-03-06 02:13 | NUR ---
HELPED PT TO THE BSC, AND BACK TO BED. GAVE HER A SPRITE SODA PER HER REQUEST. BEDSIDE TABLE AND CALL LIGHT IN REACH.
--- NOTE | 2018-03-06 05:22 | NUR ---
VITALS AND I&OS DONE AND CHARTED. BEDSIDE TABLE AND CALL LIGHT IN REACH. GARBAGES EMPTIED. WARM BLANKET GIVEN. PT NEEDS NOTHING AT THIS TIME.
--- NOTE | 2018-03-06 05:34 | NUR ---
PATIENT ARRIVED AT APROXIMATELY 2049 LAST EVENING WITH A DX OF UTI AND SBO. PATIENT SAID SHE HAD BEEN VOMITING FOR 4 DAYS AND HAD NOT BEEN ABLE TO STOP. PATIENT HAS A SCOPALAMINE PATCH BEHIND HER RT EAR. HAS HAD ZOFRAN AND PROMETHAZINE FOR NAUSEA SO FAR THIS SHIFT. PATIENT JUST GOT UO AND USED THE BEDSIDE COMMODE. LOW BACK LEE INCREASED TO 10/10 AND 0.5MG IV DILAUDID WAS GIVEN SIVP, THEN PATIENT BECAME NAUSEATED AND 8 MG IV ZOFRAN WAS GIVEN. NAUSEA WAS RELIEVED AND PAIN NOW DOWN TO 0/10. D5LR STILL RUNNING AT 125MLS/HR AFTER A 1 LITER LR BOLUS. PT HAS AN NG TUBE IN HER RT NARE TO LIWS WHICH HAS NOT REALLY HAD ANY DRAINAGE. PATIENT HAS HAAD 1 2GRAM MAG+ RIDER AND IS FINISHING HER 3RD 10MEQ K+ RIDER AFTER WHICH SHE WILL GET ONE MORE. PATIENT IS VOIDING PER BEDSIDE COMMODE AND IS NOW CALM AND RELAXED. PATIENT HAS HYPOACTIVE BOWEL TONES, LUNGS ARE CLEAR.
[2018-03-06] MEDS ORDERED: ZOFRAN ODT4 MG PO (08:13)
[2018-03-06] MEDS ORDERED: METOPROLOL TART25 MG PO (08:14)
[2018-03-06] MEDS ORDERED: TOPIRAMATE50 MG PO (08:17)
--- NOTE | 2018-03-06 08:18 | NUR ---
RECIEVED BEDSIDE REPORT FROM LIUDMILA FINNEY. PT AWAKE BUT DROWSY. REPORTS NAUSEA RETURNED AFTER XRAY CAME IN. PAIN REPORTED TO BE 8/10 CHRONIC. PT REQUESTS MORE WATER, BUT HOLDING OFF UNTIL DR KILGORE ROUNDS. POSSIBLE SURGERY TODAY.
[2018-03-06] MEDS ORDERED: VITAMIN D5000 UNI1 PO (09:40)
[2018-03-06] MEDS ORDERED: OMEPRAZOLE20 MG PO (09:41)
[2018-03-06] MEDS ORDERED: SUMATRIPTAN SUC25 MG PO (09:42)
[2018-03-06] MEDS ORDERED: K-TAB ER20 MEQ PO (09:43)
[2018-03-06] MEDS ORDERED: FLUTICASONE PRO16 GM NAS (09:55)
[2018-03-06] MEDS ORDERED: COMBIGAN EYE DRO5 ML OU (09:55)
[2018-03-06] MEDS ORDERED: KETOCONAZOLE15 GM TOP (09:56)
[2018-03-06] MEDS ORDERED: OLOPATADINE HC2.5 ML OU (09:57)
[2018-03-06] MEDS ORDERED: SYSTANE BALANCE10 ML OU (09:58)
--- NOTE | 2018-03-06 10:22 | NUR ---
MED REC COMPLETE
--- NOTE | 2018-03-06 10:26 | NUR ---
PT COMPLAINS OF SEVERE PAIN IN HER BACK, CHRONIC. SCREENER AND BLENDER AND RN REPOSITIONED PT, STATED THAT WAS MUCH BETTER FOR NOW. PT C/O DISCOMFORT FROM THE NG TUBE. RN EXPLAINED THAT IT IS NECESSARY FOR NOW. DR KILGORE ON FLOOR, ADVISED PT THAT HE WOULD ROUND SOON HE COULD.
--- NOTE | 2018-03-06 10:52 | NUR ---
pt asked for assistance to turn onto her left side, assisted pt and tucked a pillow behind her for support. pt also asked for a 7-up. pt is resting in bed safely with call light in reach.
--- NOTE | 2018-03-06 11:53 | HP ---
[facility] [address], [place] [address] Signed ADMISSION DATE: 03/05/2018 REASON FOR ADMISSION: Bowel obstruction. HISTORY OF PRESENT ILLNESS: This 58-year-old white woman presented to the emergency room yesterday with nausea, abdominal pain and thought likely to have urinary tract infection. Urinalysis showed 10 white cells per high-power field. Yesterday, she did not really have abdominal pain, only vomiting and diarrhea. Her white count was slightly elevated. She had been started on Rocephin intravenously and given Omnicef antibiotic. She returned to the emergency room today and was evaluated again by Dr. Wheeler noting that she was intolerant of an antibiotic and unable to fill her Zofran prescription due to insurance reasons. As she had more abdominal pain and distention, a CT scan was obtained by Dr. Wheeler, which showed findings of high-grade bowel obstruction considered in the distal small bowel. There is no evidence of perforation or pneumatosis. The patient's white count is elevated at 13.5, hematocrit 49.3, platelets 213,000. Electrolytes are normal. A urinalysis was not repeated. Her past medical history is said to include gastric bypass operation. My review of her CT scan images; however, show a relatively large stomach, or perhaps gastric remnant. Nasogastric tube has been placed with decompression. Currently, the patient still feels somewhat uncomfortable, bloated, and so forth. She notes that her symptoms have been going on since Thursday (today is Thursday). PAST MEDICAL HISTORY: 1. Rather extensive and considerable amount of polypharmacy is noted. Specifically, note from prior evaluation from Dr. Laguerre in 2013, confirms prior history of tonsillectomy, pelvic surgery including D and C, ovariectomy, oophorectomy, and appendectomy. 2. History of "gastric bypass.". 3. Cholecystectomy. 4. Left knee and left shoulder arthroscopic operations. 5. Redundant skin removal 10 pounds and history of exploration of the abdomen for bowel obstruction. She denies that she has had such operation in the past for bowel obstruction though. It is documented several times in the previous notes. REVIEW OF SYSTEMS: She does not have too much abdominal pain particularly, just feels somewhat miserable Electronically Signed By: LANIE KILGORE MD 03/06/18 1153 PATIENT NAME: NFAISA GALARZA HISTORY AND PHYSICAL DATE OF : 58 REPORT #: [id number] PHYSICIAN: LANIE KILGORE MD PCP: JOHN DESAI REPORT IS CONFIDENTIAL AND NOT TO BE RELEASED WITHOUT AUTHORIZATION [facility] [address] [place], [place] [address] Signed and distended. PHYSICAL EXAMINATION: GENERAL: An elderly woman despite her age of 58 years, mucous membranes are slightly moist. Trachea is midline. CHEST: Clear. HEART: Regular. ABDOMEN: Rather protuberant and obese. There is no focal tenderness. Laparoscopic incisions are noted from operation over the tissue extensively and bariatric operation. EXTREMITIES: Mild edema. LABORATORY DATA: Show white count 13.5, hematocrit 49.3, platelets 213,000. Chem profile is essentially normal. Glucose elevated at 161, calcium 9.1, liver enzymes normal. Lipase normal at 26. Urinalysis from yesterday showing specific gravity of 1.01, pH is 6, urine white cells 10. I have reviewed the CT scan myself in detail and have reviewed the radiologist's report. There does appear to be distended loops of small bowel throughout much of the abdomen. The liver and spleen appeared to be normal. Examination of the stomach shows it to be of normal anatomic configuration. I did not see a small gastric pouch nor Zoe limb or anything of that sort. Dilated loops of small bowel extend well beyond the area of the ligament of Treitz and although the possibility of internal herniation is a consideration and a typical Zoe-en-Y gastric bypass operations, this anatomy seems atypical for that. There were numerous bowel loops noted well distal to this. ASSESSMENT: She clinically appears to have small-bowel obstruction. Review of the urinalysis from yesterday shows only minimal findings to suggest urinary tract infection. I think that is an unlikely underlying problem in this situation. A nasogastric tube has been placed and appears to be functioning. Additional fluid resuscitation would be appropriate. She may have some liquids for comfort sake. We will review a KUB in the morning. If she has not had prompt resolution she may require exploration and remedy of the bowel obstruction whatever its underlying cause is. She was noted to have a plethora of medications at time of admission. This does include Lasix, gabapentin, Gordon, Synthroid, meclizine, methocarbamol, metoprolol, nitrofurantoin, nitroglycerin, Prilosec, sucralfate, topiramate, and other less worrisome medicines. We will be mindful of those medicines and re-initiate them as appropriate. For now, sliding scale insulin would be initiated and some of the baseline medicines held at bay for the moment. Electronically Signed By: LANIE KILGORE MD 03/06/18 1153 PATIENT NAME: NAFISA GALARZA HISTORY AND PHYSICAL DATE OF : 58 REPORT #: [id number] PHYSICIAN: LANIE KILGORE MD PCP: JOHN DESAI REPORT IS CONFIDENTIAL AND NOT TO BE RELEASED WITHOUT AUTHORIZATION [facility] [address] [place], [place] [address] [address] Signed MD DANO Zapien/PRICE /[id number] cc: Liam Frost Copies: LIAM FROST ~ Electronically Signed By: LANIE KILGORE MD 03/06/18 1153 PATIENT NAME: NAFISA GALARZA HISTORY AND PHYSICAL DATE OF : 58 REPORT #: [id number] PHYSICIAN: LANIE KILGORE MD PCP: JOHN DESAI REPORT IS CONFIDENTIAL AND NOT TO BE RELEASED WITHOUT AUTHORIZATION
--- NOTE | 2018-03-06 13:20 | NUR ---
REPORT RECEIVED FROM LIUDMILA GARCIA. PT ASLEEP IN CHAIR WITH SUCTION ON NG TUBE. IVF INFUSING.
--- NOTE | 2018-03-06 14:42 | NUR ---
PT CONTINUES TO SLEEP IN CHAIR. SUCTION TO LIWS.
--- NOTE | 2018-03-06 14:51 | NUR ---
pt is sitting up in chair with call light in reach, pt asked for a cup of ice.
--- NOTE | 2018-03-06 15:50 | NUR ---
PT CALLED FOR PUMP BEEPING. ASKED ABOUT PAIN AND HOW SHE WAS FEELING. PT RATED PAIN 8\10. PT STATES SITTING UP IN THE CHAIR FOR SO LONG MADE HER BACK HURT ADMINISTERED DILAUIDID AND ZOFRAN SHE STATES THE DILAUIDID USUALLY MAKES HER NAUSEOUS. NG TUBE DRAINING WNL. IVF INFUSING WNL.
--- NOTE | 2018-03-06 18:38 | NUR ---
PT SAT IN CHAIR FOR SEVERAL HOURS TODAY. REPORTS CHRONIC BACK PAIN. NG TO LAILA. D5LR @125. PIVOTS TO COMMODE. GIVEN DILAUDID AND ZOFRAN X1 SINCE 1300. CLEAR LIQUIDS, TOLERATING WELL.
--- NOTE | 2018-03-06 19:11 | NUR ---
pt is resting in bed safely with call light inreach. pt did not eat any dinner due to nausea but is sipping on a 7-up.
--- NOTE | 2018-03-06 20:37 | NUR ---
PATIENT C/O OF 9/10 LOW BACK PAIN AND NAUSEA. 8MG IV ZOFRAN GIVEN FOLLOWED BY 0.5MG IV DILAUDID. PAIN DECREASED TO A 3 /10 AND NAUSEA WAS GETTING BETTER.
--- NOTE | 2018-03-06 22:55 | NUR ---
PATIENT GOT UP AND USED THE RESTROOM AND NOW C/O 9/10 LOW BACK PAIN AND NAUSEA AGAIN. 12.5MG IV PROMETHAZINE IN 20 MLS SALINE GIVEN SIVP OVER 10 MINUTES FOLLOWED BY 0.5MG IV DILAUDID. PATIENT'S PAIN AND NAUSEA RESOLVED AND PATIENT NOW RESTING QUIETLY, EYES CLOSED, RESPIRATIONS EVEN AND REGULAR. O2 SATS 94% ON ROOM AIR AND PULSE IS 84. CALL LIGHT IN REACH.
--- NOTE | 2018-03-07 00:26 | NUR ---
PATIENT CONTINUES TO REST QUIETLY IN BED AT THIS TIME. EYES CLOSED, RESPIRATIONS EVEN AND REGULAR. NO SIGNS OF DISTRESS. FACE RELAXED AND CALL LIGHT IS IN REACH.
--- NOTE | 2018-03-07 02:10 | NUR ---
PATIENT GOT UP AND USED THE BEDSIDE COMMODE AND VOIDED 400MLS. BACK IN BED PATIENT SAID HER BACK PAIN WAS 10/10 ANDD PATIENT GOT ANOTHER 0.5MG DILAUDID. PATIENT RESTING QUIETLY AT THIS TIME.
--- NOTE | 2018-03-07 03:01 | NUR ---
PATIENT RESTING QUIETLY NOW. EYES CLOSED, SLIGHT SNORE, RESPIRATIONS REGULAR AND EVEN. CALL LIGHT IN REACH.
--- NOTE | 2018-03-07 07:10 | NUR ---
RECIEVED REPORT FROM LIUDMILA FINNEY. LIUDMILA HERNANDEZ WAS IN ROOM STARTING NEW IV, 22G IN R FOREARM, LATERAL EDGE. RN REPORTS PT PAINFUL AND ANXIOUS OVERNIGHT. PT VOIDING WELL. NG TUBE TO LIWS. PT REPORTS PASSING GAS AND BELCHING, BUT NO BM. PT WOULD LIKE SURGERY TODAY.
--- NOTE | 2018-03-07 07:47 | NUR ---
0550 PATIENT HAD TO BE MEDICATED AGGAIN WITH 8MG OF ZOFRAN AND 0.5MG OF DILAUDID FOR 10/10 PAIN AFTER GETTING UP TO USE THE COMMODE. PATIENT HTEN WHEN BACK TO SLEEP AND BEDSIDE REPORT GIVEN TO DAY SHIFT RN.
--- NOTE | 2018-03-07 08:15 | NUR ---
THIS PIPE LINE GAUGER ASSISTED PATIENT UP TO BEDSIDE COMMODE. PATIENT VOIDED AND COMPLAINS OF STOMACH PAIN RATED AT AN 8 OUT OF 10. PATIENT REFUSES TO SIT UP IN BED OR CHAIR. PATIENT PERFORMED ORAL CARE AND AM CARE. CALL LIGHT IN REACH. RN NOTIFIED OF PATIENT'S PAIN. NO OTHER NEEDS AT THIS TIME.
--- NOTE | 2018-03-07 10:10 | NUR ---
PATIENT RESTING IN BED. CALL LIGHT IN REACH. NO OTHER NEEDS AT THIS TIME.
--- NOTE | 2018-03-07 10:54 | NUR ---
THIS AIRCRAFT ELECTRICAL SYSTEMS SPECIALIST ASSISTED PATIENT TO WALK INTO BATHROOM. PATIENT TOLERATED AMBULATION WELL. PATIENT BACK INTO BEDSIDE RECLINER, FEET ELEVATED. CALL LIGHT IN REACH. NO OTHER NEEDS AT THIS TIME.
--- NOTE | 2018-03-07 13:23 | NUR ---
CALLED DR KILGORE RE: TIMING OF PREOP ABX. HE WOULD LIKE TO WAIT ONCALL TO OR FOR THE ABX. PRIOR SURGERY IS JUST COMPLETING, [facility].
--- NOTE | 2018-03-07 14:26 | NUR ---
PT OFF THE FLOOR TO SURGERY. DISCUSSED WITH LIUDMILA CONCEPCION PT ALLERGIES. MD AND PHARMACIST DISCUSSED LISTED ALLERGY AND CONFIRMED BEST OPTION. LIST OF ALLERGIES, FACESHEET, LABELS.
--- NOTE | 2018-03-07 14:30 | NUR ---
PATIENT OFF THE FLOOR FOR SURGERY, LINENS CHANGED. ROOM CLEANED.
--- NOTE | 2018-03-07 19:13 | NUR ---
RECIEVED REPORT FROM LIUDMILA GARCIA. PT AT SURGERY AT THIS TIME.
--- NOTE | 2018-03-07 20:17 | NUR ---
03/07/182016 Tiesha Alvares 1956 PT ARRIVED IN PACU SLEEPY WITH NO C/O'S. NG TO LOW INTERMITENT SUCTION. 2010 C/O ABD PAIN. UNABLE TO RATE PAIN AT THIS TIME. DILAUDID 0.5MG GIVEN IVP.
--- NOTE | 2018-03-07 21:00 | NUR ---
PATIENT ARRIVED TO [place] [id number] FROM PAC[facility]IA [facility]. BREATHING IS EVEN AND UNLABORED. PATIENT PLACED ON 2L O2 DUE TO O2 SATURATION OF 91%. PATIENT REPORTS "MY PAIN IS A 100 RIGHT NOW AFTER YOU MOVED ME TO THE BED." WHEN NOT BEING VERBALLY STIMULATED, PATIENT IS RESTFUL WITH EYES CLOSED, BEGINS TO SNORE, RR DOWN TO 9 WHILE ASLEEP. ASSESSMENT AND VITALS DONE. DRESSING TO MIDLINE INCISION TO ABD CDI, ZACARIAS DRAIN NOTED WITH SANGUINOUS OUTPUT. NGT PRESENT, HOOKED UP TO LIS, SCANT AMOUNT OF THICK BROWN CONTENT NOTED IN SUCTION TUBING.
--- NOTE | 2018-03-07 22:00 | NUR ---
PATIENT CONTINUES TO BE RESTFUL WITH EYES CLOSED, OCCASIONALLY OPENS EYES AND STATES "I AM GOING TO BE SICK." HEART RATE RISES TO >130 WHILE AWAKE. PRN ZOFRAN GIVEN. PATIENT QUICKLY BECOMES RESTFUL WITH EYES CLOSED, FLACC SCORE OF 0, RR REMAINS BETWEEN 9 AND 12.
--- NOTE | 2018-03-07 23:06 | NUR ---
PATIENT REQUESTING ICE CHIPS. AFTER GIVING PATIENT ICE CHIPS, SHE STATES "I NEED SOMETHING FOR PAIN. MOVING INTO THE BED MADE ME HURT A LOT." EDUCATED PATIENT THAT RR HAS BEEN RELATIVELY LOW BETWEEN 9 AND 10 AND THAT NARCOTIC USE SHOULD BE AVOIDED AT THIS TIME. UPDATED DR. KILGORE ABOUT PATIENT'S SUSTAINED TACHYCARDIA WITH HEART RATE >120 WHILE AT REST. 500 CC LR BOLUS OVER ONE HOUR TO BE GIVEN. ALSO NOTIFIED THAT PATIENT HAS NOT BEEN ABLE TO RECEIVE PAIN MEDICATION DUE TO RR OF 9 AND 10 WHILE PATIENT AT REST. 1000 MG IV TYLENOL Q6P ORDERED FOR PAIN.
--- NOTE | 2018-03-08 00:30 | NUR ---
UPDATED DR. KILGORE REGARDING PATIENT'S CONTINUED TACHYCARDIA AND BORDERLINE LOW URINE OUTPUT. DR. KILGORE STATES THAT 2O CC/HR FOR URINE OUTPUT IS ADEQUATE, NO NEW ORDERS REGADING PATIENT HR. PATIENT'S BP STABLE. PATIENT'S RR CONTINUES TO BE 9, EXPRESSED CONCERN WITH PAIN CONTROL AND NOT BEING COMFORTABLE GIVING IV NARCOTICS. ORDERED TORDOL, AWARE THAT IT IS LISTED ALLERGY. PATIENT STATES REPORTS THAT TORDOL MAKES HER FEEL SICK AND STATES "IT MAKES ME DEATHLY ILL. TORDOL AND I DON'T GET ALONG." STATES THAT IT IS OKAY TO GIVE IV DILAUDID, USE NARCAN IF NECESSARY. REGARDING URINE OUTPUT, DR. KILGORE STATES THAT IF URINE OUTPUT DROPS TO LESS THAN 20 CC/HR, GIVE PATIENT 500 ML LR BOLUS.
--- NOTE | 2018-03-08 01:00 | NUR ---
PATIENT RESTING COMFORTABLY IN BED, BREATHING IS EVEN AND UNLABORED, RR IS 9, O2 SATURATION IS 94% ON ROOM AIR, FLACC SCORE OF 0. ASSESSMENT AND VITALS DONE. NO ACUTE CHANGES FROM ASSESSMENT AT BEGINNING OF SHIFT.
--- NOTE | 2018-03-08 02:06 | NUR ---
PT MEDICATED WITH 0.5MG IV DILAUDID FOR 10/10 ABDOMINAL PAIN.
--- NOTE | 2018-03-08 03:34 | NUR ---
PATIENT REPOSITIONED IN BED. REPORTS 6/10 PAIN IN ABD AND STATES "THE PAIN IS STILL THERE, BUT IT IS MUCH BETTER THAN THE PAIN I HAD WHEN I CAME TO THE HOSPITAL." DISCUSSED PAIN MANAGEMENT WITH PATIENT, PATIENT REPORTS A PAIN GOAL OF 5. 0.5 MG DILAUDID GIVEN, RR IS 12 WHILE AWAKE, O2 SATURATION IS 96% ON ROOM AIR. AFTER DILAUDID ADMINISTRATION, RR SUSTAINED BETWEEN 8 AND 10, O2 SATURATION 94% ON ROOM AIR. PATIENT ALSO GIVEN 8 MG IV ZOFRAN FOR NAUSEA. PATIENT DENIES FURTHER NEEDS AT THIS TIME. CALL LIGHT WITHIN REACH.
--- NOTE | 2018-03-08 05:18 | NUR ---
PATIENT REPORTS 9/10 PAIN IN ABD, PRN DILAUDID GIVEN. RR IS SATISFACTORY BETWEEN 9 AND 10, O2 SATURATION 94% ON ROOM AIR. PATIENT DENIES FURTHER NEEDS, CALL LIGHT WITHIN REACH.
--- NOTE | 2018-03-08 06:00 | NUR ---
NOTIFIED DR. KILGORE REGARDING PATIENT'S CONTINUED LOW URINE OUTPUT DESPITE FLUID BOLUS. ALSO NOTIFIED HIM THAT PATIENT APPEARS TO BE PALE. LAB CURRENTLY IN ROOM TO DRAW SCHEDULED LABS, DR. KILGORE ORDERS ANOTHER FLUID BOLUS OF 500 CC LR, AND STATES "WE WILL WAIT AND SEE WHAT LABS SHOW."
--- NOTE | 2018-03-08 07:04 | NUR ---
PATIENT GIVEN IV DILAUDID FOR 10/10 PAIN IN ABD, PATIENT CONINUES TO HAVE RR OF 9 AT REST, O2 SATURATION 95% ON ROOM AIR.
--- NOTE | 2018-03-08 07:30 | NUR ---
REPORT RECIEVED. PATIENT IS MOANING AT TIMES, IV PATENT, PRITCHETT CATH PATENT WITH SMALL SHARMIN URINE NOTED.
--- NOTE | 2018-03-08 08:00 | NUR ---
ASSESSMENT DONE. ABD DRESSING IS INTACT. IS TAKING ICE CHIPS. NG IRRIGATED WITH 30 ML OF NS. SCD'S ON. TALKED WITH PATIENT ABOUT PLAN OF CARE, IS UNDERSTANDING. C/O PAIN, NO MEDICATION GIVEN AT THIS TIME. C/O SLIGHT NAUSEA. WILL MEDICATE WITH PHENERGAN.
--- NOTE | 2018-03-08 08:30 | NUR ---
DR. KILGORE HERE TO SEE PATIENT, ORDERS RECIEVED. WILL RECIEVE LR BOLUS PRN U/O < 20 ML Q HR.
--- NOTE | 2018-03-08 09:02 | NUR ---
U/O IN LAST HR=10 ML. LR BOLUS 500 ML HUNG.
--- NOTE | 2018-03-08 10:00 | NUR ---
SECOND BOLUS OF 500 ML HUNG U/O LAST HR 18 ML
--- NOTE | 2018-03-08 10:00 | NUR ---
RESTFUL AT THIS TIME. POSITIONED TO RIGHT SIDE. NO DISTRESS NOTED. NG INTACT.
--- NOTE | 2018-03-08 11:00 | NUR ---
U/O LAST HR=30 ML. NO BOLUS THIS HR.
--- NOTE | 2018-03-08 11:35 | NUR ---
C/O ABD PAIN 02/22. DILAUDID 0.5 MG IV GIVEN. HAS BEEN TAKING POPSICLE AND WATER, SIPS 7-UP. THIS OKAY WITH DR. KILGORE.
--- NOTE | 2018-03-08 12:10 | NUR ---
ATTEMPTED TWICE TO START PERIPHERAL IV SITE, UNSUCESSFUL. PATIENT C/O PAIN /, THEN FALLS ASLEEP. NOT MEDICATED AT THIS TIME. HAS RECIEVED DILAUDID 0.5MG IV ONCE THUS FAR THIS SHIFT.
--- NOTE | 2018-03-08 13:20 | NUR ---
DILAUDID 0.5 MG IV GIVEN FOR C/O PAIN. REPOSITIONED.
--- NOTE | 2018-03-08 13:33 | NUR ---
RESTFUL AFTER DILAUDID 0.5 MG IV GIVEN.
--- NOTE | 2018-03-08 16:00 | NUR ---
DILAUDID 0.5 MG IV GIVEN FOR C/O POST-OP PAIN FOLLOWED BY ZOFRAN FOR C/O NAUSEA. ABD DRESSING REMAINS INTACT, ZACARIAS INTACT. BOLUS LR HUNG OVER LAST TWO HOURS TOTAL U/O 30 ML, EQUAL TO 15 ML EACH HOUR. ASSESSMENT DONE.
--- NOTE | 2018-03-08 18:15 | NUR ---
DR. KILGORE UPDATED ON PATIENT CONDITION. ORDERS RECIEVED.
--- NOTE | 2018-03-08 18:30 | NUR ---
LOPRESSOR 5 MG IV GIVEN. LASIX 20 MG IV GIVEN PER MD ORDERS. DILAUDID 0.5 MG IV GIVEN FOR PAIN.
--- NOTE | 2018-03-08 18:40 | NUR ---
SAT AT BEDSIDE THEN STOOD BRIEFLY, TOLERATED WELL. NEEDS MUCH ENCOURAGEMENT. C/O INCREASED NAUSEA WITH MOVEMENT.
--- NOTE | 2018-03-08 19:10 | NUR ---
REPORT TO NEXT SHIFT.
--- NOTE | 2018-03-08 19:15 | NUR ---
SHIFT REPORT RECEIVED FROM LIUDMILA THOMPSON. PT IS RESTING IN BED. RA. PRITCHETT PATENT. IV INFUSING WNL. HR SINUS TACHY ON MONITOR. WILL CONTINUE TO MONITOR.
--- NOTE | 2018-03-08 20:15 | NUR ---
ASSESSMENT COMPLETED. PT IS DROWSY, EASILY ROUSABLE, ORIENTED. REPORTS 10/10 ABDOMINAL PAIN, PT ALSO HAS ORAL TEMP OF 100.3, 1000MG IV OFIRMEV ADMINISTERED. LUNGS CLEAR, DIM IN BASES, RA. HR REGULAR, TACHY IN 110'S, DENIES SOB AND CHEST PAIN. BOWEL TONES ABSENT, ABDOMEN LARGE, SOFT, AND TENDER, REPORTS NAUSEA, 12.5MG IV PHENERGAN ADMINISTERED. PERIPHERAL PULSES STRONG, SCD'S IN PLACE. MIDLINE SURGICAL SITE COVERED WITH MEPILEX AND OPSITE, DRESSING INTACT, SMALL AMOUNT OF OLD SHADOWING NOTED. ZACARIAS TO RLQ DRAINING SEROSANGUINOUS FLUID, 10ML EMPTIED, DRESSING OF MEPILEX AND OPSITE C/D/I. NG TO L.I.S. DRAINING GREEN LIQUID. PRITCHETT PATENT, UO INCREASING SINCE DOSE OF LASIX. IV PATENT, INFUSING WNL. PT DENIES NEEDS, WILL CONTINUE TO MONITOR.
--- NOTE | 2018-03-08 21:30 | NUR ---
PT HAD ~6.4 SECOND RUN OF SVT WITH RATE REACHING 177 BPM. PT'S HEARTRATE THEN QUICKLY RETURNED TO 110'S, PT SLEPT THROUGH THIS EPISODE, NO APPARENT DISTRESS. PT HAS 5MG IV LOPRESSOR DUE AT 2200, GIVEN AT THIS TIME. WILL CONTINUE TO CLOSELY MONITOR.
--- NOTE | 2018-03-08 22:02 | NUR ---
PT CURRENTLY SLEEPING, NO APPARENT DISTRESS. RESPIRATIONS EVEN AND UNLABORED, RR:19, SPO2:95% ON RA, HR:95. PRITCHETT EMPTIED OF 75ML FOR PAST 2 HOURS. WILL CONTINUE TO CLOSELY MONITOR.
--- NOTE | 2018-03-08 23:11 | NUR ---
PT CALLED AND REQUESTED SOMETHING FOR 10/10 ABDOMINAL PAIN. 0.5MG IV DILAUDID ADMINISTERED AT THIS TIME. ORAL TEMP 99.3 AT THIS TIME. PT PROVIDED WITH A A FEW SIPS OF 7-UP. NO FURTHER REQUESTS AT THIS TIME.
--- NOTE | 2018-03-08 23:54 | NUR ---
PT SLEEPING, NO APPARENT DISTRESS. RESPIRATIONS EVEN AND UNLABORED, RR:14, SPO2:94% ON RA, HR:92. LUNGS REMAIN CLEAR/DIM. BOWEL TONES REMAIN ABSENT. DRESSING TO MIDLINE UNCHANGED, ZACARIAS DRAIN HAS SCANT AMOUNT OF SEROSANGUINOUS DRAINAGE PRESENT. PRITCHETT PATENT, 50ML URINE OUTPUT FOR PAST 2 HOURS. IV PATENT, INFUSING WNL. SCD'S ON. NG REMAINS TO L.I.S.. WILL ALLOW FOR REST AND CONTINUE TO MONITOR.
--- NOTE | 2018-03-09 02:17 | NUR ---
PT CONTINUES TO SLEEP, NO APPARENT DISTRESS. RESPIRATIONS EVEN AND UNLABORED, RR:14, SPO2:94% ON RA, HR:85. PRITCHETT PATENT, 75ML OUT FOR PAST 2 HOURS. IVF INFUSING WNL. WILL ALLOW FOR REST AND CONTINUE TO MONITOR.
--- NOTE | 2018-03-09 02:55 | NUR ---
PT CALLED TO REQUEST PAIN MEDICATION FOR 10/10 ABDOMINAL PAIN. 0.5MG IV DILAUDID ADMINISTERED. PT ALSO PROVIDED WITH FRESH ICE CHIPS, SHE HAS ONLY BEEN TAKING SIPS OF 7-UP. NO FURTHER REQUESTS AT THIS TIME, CALL LIGHT IS WITHIN REACH.
--- NOTE | 2018-03-09 04:20 | NUR ---
ASSESSMENT COMPLETED. PT REMAINS DROWSY, EASILY ROUSABLE. REPORTS 10/10 PAIN AND NAUSEA, MEDICATED AT THIS TIME WITH 12.5MG IV PHENERGAN, WILL RE-EVALUATE PAIN AFTER PHENERGAN HAS HAD TIME TO TAKE EFFECT. PT CONSISTENTLY RATES HER ABDOMINAL PAIN 10/10, THOUGH AT THIS TIME FLACC PAIN SCORE IS 0. LUNGS REMAIN CLEAR AND DIM IN BASES, RA. HR REGULAR, RATE IN THE 90'S. BOWEL TONES REMAIN ABSENT, NG TO L.I.S. DRESSINGS TO SURGICAL SITE AND ZACARIAS REMAIN UNCHANGED, ZACARIAS DOES NOT APPEAR TO NEED EMPTIED AT THIS TIME. PRITCHETT PATENT, 60ML OUTPUT FOR LAST 2 HOURS. IV PATENT, INFUSING WNL. SCD'S ON. CONTINUE TO MONITOR CLOSELY.
--- NOTE | 2018-03-09 05:29 | NUR ---
PT SLEEPING, NO APPARENT DISTRESS. RR:15, SPO2:95%, HR:88.
--- NOTE | 2018-03-09 05:50 | NUR ---
PT CALLS TO REQUEST PAIN MEDICATION FOR 10/10 ABDOMINAL PAIN, 0.5MG IV DILAUDID ADMINISTERED AT THIS TIME.
--- NOTE | 2018-03-09 07:30 | NUR ---
REPORT RECIEVED. PATIENT IS RESTFUL IN BED. IVF PATENT AT 125 ML/HR. PRITCHETT CATH WITH CLEAR SHARMIN URINE. NG PATENT TO LIS. SCD'S ON.
--- NOTE | 2018-03-09 08:00 | NUR ---
ASSESSMEN DONE. TALKED WITH PATIENT ABOUT PLAN OF CARE. NO QUESIONS REGARDING CARES AT THIS TIME.
--- NOTE | 2018-03-09 10:05 | NUR ---
DILAUDID 0.5 MG IV GIVEN FOR PAIN.
--- NOTE | 2018-03-09 10:45 | NUR ---
OUT OF BED TO CHAIR WITH ASSIST, TOLERATED WELL. ENC USE OF I.S. C/O NAUSEA.
--- NOTE | 2018-03-09 10:50 | NUR ---
IV 20 GA STARTED TO LEFT FOREARM. ZOFRAN 4 MG IV GIVEN FOR NAUSEA.
--- NOTE | 2018-03-09 12:00 | NUR ---
ASSESSMENT DONE. ENC COUGH AND DEEP BREATH. LUNGS ARE WITH COURSE BREATH SOUNDS LLL.
--- NOTE | 2018-03-09 12:43 | NUR ---
BACK TO BED WITH ASSIST.
--- NOTE | 2018-03-09 13:25 | NUR ---
DR. KILGORE HERE TO SEE PATIENT. ORDES RECIEVED.
--- NOTE | 2018-03-09 14:30 | NUR ---
K PHOS AND MAG, IVF TO 15 ML WHILE THESE MEDS INFUSING.
--- NOTE | 2018-03-09 15:00 | NUR ---
STATES FEELS NEED TO HAVE BM, OOB TO COMMODE WITH MUCH ENCOURAGEMENT. MOVING FAIR WITH ASSIST. STATES PASSED GAS. BACK TO BED AFTER SITTING ON COMMODE FOR APPROX 10 MIN.
--- NOTE | 2018-03-09 17:58 | NUR ---
PATIENT ATTEMPTING TO COUGH, SOME SPUTUM EXPIRATED, BUT REFUSES TO DEEP BREATHE. STATES " IT HURTS, AND I JUST CAN'T" INSTRUCTED TO SPLINT WITH BLANKET. PATIENT NOT RECEPTIVE TO INSTRUCTION, NOW DEMANDING SODA AND PILLOW TO EXCHANGED FOR SOMETHING SOFTER AND COVERS TO BE REMOVED. PROVIDED REQUESTS. ADMINISTERED IV LOPRESSOR SLOWLY OVER 5 MINUTES. PATIENT APPEARS TO BE RESTING CALMY NOW WITH EYES CLOSED, SATURATIONS 96% 2L NC. CALL LIGHT WITHIN REACH, NO OTHER NEEDS AT THIS TIME.
--- NOTE | 2018-03-09 19:20 | NUR ---
SHIFT REPORT RECEIVED FROM LIUDMILA THOMPSON. PT CURENTLY RESTING IN BED. 2L O2. NG TO Rosina PRITCHETT PATENT. IVF INFUSING WNL. CALL LIGHT WITHIN REACH.
--- NOTE | 2018-03-09 20:15 | NUR ---
ASSESSMENT COMPLETED. PT IS DROWSY, EASILY ROUSABLE, ORIENTED. REPORTS 10/10 ABDOMINAL PAIN, MEDICATED WITH 0.5MG IV DILAUDID. LUNGS COARSE THROUGHOUT, 2L O2 VIA NC, PRODUCTIVE COUGH, ENCOURAGED COUGH WITH SPLINTING AND DEEP BREATHING. HR REGULAR, LITTLE TACHY 100-105, DENIES SOB AND CHEST PAIN. BOWEL TONES RARE, REPORTS NAUSEA, 12.5MG IV PHENERGAN ADMINISTERED. NG TO L.I.S. DRAINGING GREEN FLUID. PRITCHETT PATENT, UO LARGE. DRESSING TO MIDLINE HAS SMALL AMOUNT OF SHADOWING NOTED, OTHERWISE IS INTACT. DRESSING TO ZACARIAS DRAIN C/D/I, MINIMAL SEROSANGUINOUS DRAINAGE NOTED IN BULB. SCD'S IN PLACE. IV PATENT, INFUSING WNL. PT PROVIDED WITH FRESH ICE CHIPS AND 7-UP, MINIMAL INTAKE. CALL LIGHT WITHIN REACH, NO FURTHER REQUESTS AT THIS TIME.
--- NOTE | 2018-03-09 22:05 | NUR ---
IN TO ADMINISTER IV LOPRESSOR, VSS. PT SLEEPING, NO APPARENT DISRESS. RESPIRATIONS EVEN AND UNLABORED, RR:13, SPO2:96% ON 2L, HR:91. PRITCHETT PATENT, DRAINING CLEAR SHARMIN URINE, QS. WILL ALLOW FOR REST AND CONTINUE TO MONITOR.
--- NOTE | 2018-03-10 00:09 | NUR ---
ASSESSMENT COMPLETED. PT RESTING, OPENED EYES AND LOOKED AT ME WHILE I WAS AUSCULTATING LUNGS, AND THEN CLOSED HER EYES AGAIN WITHOUT SPEAKING. SHE DOES NOT APPEAR TO BE IN ANY DISTRESS. LUNGS REMAIN SOMEWHAT COARSE, 2L O2 VIA NC. HR REGULAR. BOWEL TONES REMAIN RARE, NG TO L.I.S. DRAINING GREEN LIQUID. DRESSING TO MIDLINE AND ZACARIAS UNCHANGED, ZACARIAS CONTINUES TO ONLY HAVE MINIMAL SEROSANGUINOUS DRAINAGE PRESENT IN BULB. PRITCHETT PATENT, CLEAR SHARMIN URINE, QS. SCD'S IN PLACE. IV PATENT AND INFUSING WNL. WILL ALLOW FOR REST AND CONTINUE TO MONITOR.
--- NOTE | 2018-03-10 00:26 | NUR ---
PT CALLED AND REQUESTED MEDICATION FOR NAUSEA AND 10/10 ABDOMINAL PAIN. 0.5MG IV DILAUDID AND 4MG IV ZOFRAN ADMINISTERED AT THIS TIME.
--- NOTE | 2018-03-10 04:18 | NUR ---
PT SLEEPING, NO APPARENT DISTRESS. RESPIRATIONS EVEN AND UNLABORED, LUNGS REMAIN COARSE, 2L O2 VIA NC. BOWEL TONES REMAIN RARE. DRESSING TO MIDLINE INCISION AND ZACARIAS REMAIN UNCHANGED. UO REMAINS QS. NG TO L.I.S. IVF INFUSING WNL. WILL ALLOW FOR REST AND CONTINUE TO MONITOR.
--- NOTE | 2018-03-10 05:41 | NUR ---
PT CALLED TO REQUEST MEDICATION FOR 10/10 ABDOMINAL PAIN, 0.5MG IV DILAUDID ADMINISTERED.
--- NOTE | 2018-03-10 07:26 | NUR ---
C/O PAIN, DILAUDID 0.5 MG IV GIVENN FOR PAIN.
--- NOTE | 2018-03-10 07:30 | NUR ---
REPORT RECIEVED. PATIENT RESTFUL IN BED.
--- NOTE | 2018-03-10 08:00 | NUR ---
ASSESSMENT DONE. PRITCHETT CATH PATENT, NG PATENT,IV PATENT, ABD DRESSING IS INTACT, ZACARIAS INTACT. TALKED WITH PATIENT ABOUT PLAN OF CARE, IS UNDERSTANDING.
--- NOTE | 2018-03-10 09:15 | NUR ---
TO CHAIR WITH ASSIST. TOLERATED TRANSFER WELL.
--- NOTE | 2018-03-10 10:30 | NUR ---
BACK TO BED WITH ASSIST. C/O PAIN. REQUESTING PAIN MEDICATION.
--- NOTE | 2018-03-10 10:40 | NUR ---
DILAUDID 0.5 MG IV GIVEN FOR PAIN. ABD DRESSING REMAINS INTACT.
--- NOTE | 2018-03-10 11:23 | NUR ---
BACK TO BED WITH ASSIST. MOVING WELL. C/O INCREASE PAIN WITH MOVEMENT.
--- NOTE | 2018-03-10 13:55 | NUR ---
pt complained of pain in abdomen "100/10". gave 0.5mg dilaudid iv.
--- NOTE | 2018-03-10 14:00 | NUR ---
HERE TO SEE NILE. TRANSFER ORDERS TO MED-SURG RECIEVED.
--- NOTE | 2018-03-10 15:18 | NUR ---
MONITOR DC'D. LASIX 20 MG IV GIVEN.
--- NOTE | 2018-03-10 15:30 | NUR ---
REPORT GIVEN TO Mayra GARCIA RN.
--- NOTE | 2018-03-10 15:45 | NUR ---
CASH POSTER DILAUDID HUNG AND EDUCATION GIVEN TO PATIENT. KCL HUNG PER ORDERS.
--- NOTE | 2018-03-10 16:00 | NUR ---
TO MED-SUG VIA BED.
--- NOTE | 2018-03-10 16:05 | NUR ---
PT ARRIVED TO UNIT VIA BED. PT ALERT AND ORIENTED. REPORTING PAIN "ALL OVER". PT AWARE OF HOW TO USE EMAIL MARKETING INTERN FOR PAIN CONTROL. REPORTS PAIN 6/10 AT THIS TIME. DENIES NAUSEA. NGT IN PLACE TO LIS, PUTTING OUT BROWN LIQUID. PRITCHETT IN PLACE, PATENT QS OUTPUT. IVF AND K RIDER RUNNING WNL. MIDLINE INCISION DRESSED WITH MEPILEX AND OPSITE. RIGHT ZACARIAS DRAIN IN PLACE ALSO DRESSED WITH MEPILEX AND OPSITE, SMALL AMOUNT OF SEROSANGUINOUS DRAINAGE NOTED. CALL LIGHT WITHIN REACH.
--- NOTE | 2018-03-10 18:11 | NUR ---
PATIENT WAS FEELING SICK TO HER STOMIC, REFUSED DINNER, GAVE COLD RAG FOR HER FACE AND A RED DEVIL SODA,CALL LIGHT IN REACH, NO OTHER NEEDS AT THIS TIME.
--- NOTE | 2018-03-10 19:25 | NUR ---
REPORT RECIEVED. NO REQUESTS AT THIS TIME. CALL LIGHT WITHIN REACH. PT SLEEPING.
--- NOTE | 2018-03-10 21:00 | NUR ---
PATIENT COMPLAINS OF ONGOING NAUSEA DESPITE PRN ZOFRAN AND PHENERGAN. PATIENT HAS BEEN USING PLANT ELECTRICAL ENGINEER FREQUENTLY BUT HER PAIN CONTINUES TO BE 8/10 WITH THE NUASEA. MD MADE AWARE. ORDERS TO GIVE IV TORADOL DESPITE PATIENT'S CONCERNS OF ALLERGY. DISCUSSED THIS WITH . PRN ZOFRAN WILL BE GIVEN SOON POSSIBLE AND WILL DISCUSS FURTHER CARE TO PREVENT NAUSEA WITH PATIENT.
--- NOTE | 2018-03-10 21:45 | NUR ---
IN ROOM TO ADMIN EVENING MEDS. PT STATES THAT SHE IS FEELING NAUSEAUS AFTER USING HER AIRPORT REFUELING HANDLER PUMP. PT GIVEN PRN ZOFRAN WELL PRN PAIN MEDS PER ORDERS. PT'S LS COURSE, PRODUCTIVE COUGH NOTED. SPUTUM YELLOW, PT SUCTIONS SELF TO REMOVE SPUTUM. PT DENIES SOB/CP. BT HYPOACTIVE, PT'S ABD TENDER, NG TO LIWS, SMALL AMOUNT OF CLEAR/BROWN DRAINAGE. IV RUNNING WNL. MIDLINE INCISION COVERED WITH MEPILEX, INTACT. ZACARIAS DRAIN HAS MODERATE AMOUNT OF SEROSANGUINEOUS DRAINAGE. PT AOX4, DROWSY. NO FURTHER REQUESTS AT THIS TIME. CALL LIGHT WITHIN REACH. AIRPORT REFUELING HANDLER WITHIN REACH.
--- NOTE | 2018-03-10 22:30 | NUR ---
PATIENT TOLD JAROD SAMI AND MYSELF THAT SHE WOULD LEAVE TO GO HOME WITH HER SON IF THE DOCTOR CONTINUED TO GIVE HER MEDICATIONS SHE IS ALLERGIC TO. ASSURED PATIENT THAT WE WERE MONITORING HER CLOSELY AND ASSESSING FOR SIGNS OF ALLERGY. PATIENT DENIES ITCHING, LIGHTHEADEDNESS, OR ANY OTHER COMPLAINTS BESIDES THE NAUSEA. ASSURED PATIENT WE WOULD COMMUNICATE HER CONSERNS TO THE MD. WHICH I DID IN PERSON.
--- NOTE | 2018-03-10 22:54 | NUR ---
VITALS AND I&OS DONE AND CHARTED. BEDSIDE TABLE AND CALL LIGHT IN REACH. PT ASKED TO TALK TO HER NURSE. I INFORMED
--- NOTE | 2018-03-11 00:19 | NUR ---
PT GIVEN ICE CHIPS PER PT REQUEST. PT STATES THAT SHE IS HOT AND CANT SEEM TO COOL DOWN. PT DIAPHORETIC. T: 98.1. THERMOSTAT ADJUSTED. BLANKETS REMOVED. NO FURTHER NEEDS AT THIS TIME. CALL LIGHT WITHIN REACH.
--- NOTE | 2018-03-11 02:06 | NUR ---
BLOOD PRESSURE AND HEART RATE DONE AND CHARTED PER REQUEST OF LIUDMILA PERKINS.
--- NOTE | 2018-03-11 02:15 | NUR ---
IN ROOM TO ADMIN 0200 MEDS. PT SLEEPING IN BED. PT C/O 8/10 PAIN AND WAS EDUCATED TO USE SYSTEM PLANNING ENGINEER. PT RECEPTIVE. OCCASSIONAL CONGESTED COUGH PRESENT, PATIENT SUCTIONING SELF, SMALL AMOUNT OF YELLOW SPUTUM NOTED. NG TO LIWS WNL. ZACARIAS DRAIN WNL. LS REMAIN COARSE. ON RA. NO NEEDS AT THIS TIME. CALL LIGHT WITHIN REACH.
--- NOTE | 2018-03-11 05:38 | NUR ---
PT AOX4, NG TO LIWS, LOW OUTPUT. ZACARIAS DRAIN INTACT MODERATE AMOUNT OF SEROSANGUINEOUS DRAINAGE. PT'S WOUND C/D/I. ABD TENDER, BT HYPOACTIVE, PT REMAINS NPO EXCEPT CLEARS WITH NG. PT C/O NAUSEA 1X THIS SHIFT. PRN NAUSEA MEDICATIONS ADMINISTERED. PT'S SENIOR FIRE PROTECTION ENGINEER REMAINS WNL. EDUCATION PROVIDED TO PT REGARDING USE AND PAIN CONTROL. LS DIMINISHED/COURSE PT ENCOURAGED TO COUGH AND DEEP BREATH, PT SELF SUCTIONING. SMALL AMOUNT OF THICK YELLOW/CLEAR SPUTUM NOTED WITH OCCASSIONAL COUGH. DENIES SOB/CP.
--- NOTE | 2018-03-11 06:36 | NUR ---
VITALS AND I&OS DONE AND CHARTED. INFORMED MADDIE OF TEMP AND OUTPUT. BEDSIDE TABLE AND CALL LIGHT IN REACH.
--- NOTE | 2018-03-11 08:09 | NUR ---
REPORT RECEIVED. 2L NC IN PLACE. NGT TO LIS. D5LR @ 75ML/HR. PRITCHETT IN PLACE. PT SITTING UP IN CHAIR. REPORTS PAIN WELL CONTROLLED AT THIS TIME. CALL LIGHT IN REACH. REQUESTING 7UP AT THIS TIME. DENIES OTHER NEEDS.
--- NOTE | 2018-03-11 09:00 | NUR ---
2PA PT BACK TO BED FOR ABD X-RAY. UNABLE TO GO WITH IMAGING. REPORTING NAUSEA, PHENERGAN GIVEN. X-RAY DONE. CALL LIGHT IN REACH. LIS NGT IN PLACE.
--- NOTE | 2018-03-11 10:53 | NUR ---
LOW URINE OUTPUT. 100/4HR. DR KILGORE NOTIFIED. NEW ORDERS ON 20MG LASIX IV AND 20MEQ K+ IV.
--- NOTE | 2018-03-11 12:30 | NUR ---
2PA TO BSC. PT UP TO CHAIR FOR LUNCH. PT IS VERYH RESISTANT TO PLAN OF CARE. CHANGED CHAIRS FOR PT. REPORTING CONSTANT NAUSEA. EDUCATED ON INTAKE. REPORTS PAIN 8/10. EDUCATED ON MANAGER UTILIZATION USE AND PAIN MANAGEMENT. NGT @ LIS. SMALL AMOUNT GASTRIC SECRETIONS FROM NGT. PRITCHETT DRAING QS CLEAR URINE. 2L NC IN PLACE. BOWEL TONES ACTIVE x4. DENIES FURTHER NEEDS.
--- NOTE | 2018-03-11 15:58 | NUR ---
ROUNDED WITH DR KILGORE. PLAN OF CARE DISCUSSED. QUESTIONS AND CONCERNS ADRESSED. ORDERS TO DC PRITCHETT CATHETER AND NGT DONE. PT TOLERATED WELL. SIPS OF WATER AT THIS TIME. CALL LIGHT IN REACH. DENIES FURTHER NEEDS.
--- NOTE | 2018-03-11 17:19 | NUR ---
MY CNA2 TRAINEE TOOK OUT IV.
--- NOTE | 2018-03-11 17:24 | NUR ---
TEMP 101.9 REPORTED [address] PROGRAM COUNSELOR. DR KILGORE NOTIFIED. ORDERED TYLENOL 650 Q6P.
--- NOTE | 2018-03-11 18:46 | NUR ---
PT HAD OK DAY. CONSTANT NAUSEA STILL ZOFRAN GIVEN X1 THIS SHIFT. PHENERGAN BEFORE X-RAY./ PT SHOWERED. ENCOURAGED DEEP BREATHING AND IS. PT HAS MODERATE AMOUNT OF CLEAR/GREEN MUCUS. PRITCHETT AND NGT DC'D. BOWEL TONES ACTIVE X4. FINE CRACKLES IN RLL. PASSING GAS. NO BM THIS SHIFT. DUE TO VOID. WORKED WITH PT X1. WALKED 2PA FWW TO BATHROOM FOR SHOWER. TOLERATED WELL. TOLERATING CLEAR LIQUIDS AT HTIS TIME. DRESSING C/D/I. DOCUMENT CONTROL ASSISTANT PUMP HANDLING PAIN WELL.
--- NOTE | 2018-03-11 19:35 | NUR ---
PT AWAKE, WATCHING TV, NO C/O PAIN, CALL LIGHT AND FLUIDS WITHING HANDS REACH. NO REQUESTS.
--- NOTE | 2018-03-11 21:27 | NUR ---
VITALS AND I&OS DONE AND CHARTED. HELPED PT GET BACK INTO BED FROM THE BATHROOM. BEDSIDE TABLE AND CALL LIGHT IN REACH. PT NEEDS NOTHING MORE AT THIS TIME.
--- NOTE | 2018-03-11 21:30 | NUR ---
HELPED PT BACK FROM THE BATHROOM. BEDSIDE TABLE AND CALL LIGHT IN REACH. PT NEEDS NOTHING MORE AT THIS TIME.
--- NOTE | 2018-03-11 22:36 | NUR ---
CHARGE NURSE ROUNDING NOTE:, CALL LIGHT AND FLUIDS AT BEDSIDE, BED ALARM ON, RESTING, EYES CLOSED, LIGHTS AND TV ON AT PTS REQUESTS, F/C PATENT. NO REQUESTS
--- NOTE | 2018-03-12 02:50 | NUR ---
HELPED PT GET TO THE BATHROOM AND BACK TO BED WITH HER FWW. DID A COMPLETE BED CHANGE DUE TO HER SWEATING. CHANGED GOWN AND ATTENDS. BEDSIDE TABLE AND CALL LIGHT IN REACH. CHECKED HER TEMP. 98.0
--- NOTE | 2018-03-12 03:22 | NUR ---
PT'S B/P AND HEART RATE DONE AND CHARTED.
--- NOTE | 2018-03-12 03:50 | NUR ---
B\P AMD PULSE TAKEN AND CHARTED PER RN AMARI.
--- NOTE | 2018-03-12 05:27 | NUR ---
VITALS AND I&OS DONE AND CHARTED. BEDSIDE TABLE AND CALL LIGHT IN REACH.
--- NOTE | 2018-03-12 07:42 | NUR ---
RECEIVED REPORT FROM INSTRUCTIONAL TECHNOLOGY COACH RN. PT IN BED. D5LR@ 75ML/HR. 1L NC IN PLACE. CPOX AT 95% AND HR @ 84. RESPIRATIONS ARE 14. PT REPORTING PAIN 5/10 AFTER PRESSING NUISANCE WILDLIFE TRAPPER. SCD'S IN PLACE. PT REPORTING NAUSEA. ZOFRAN GIVEN AT 0700. PT IS DROWSY AND WAKES TO VERBAL STIMULI. CALL LIGHT AND NUISANCE WILDLIFE TRAPPER WITHIN REACH.
--- NOTE | 2018-03-12 10:01 | NUR ---
ROUNDED WITH DR KILGORE. PLAN OF CARE DISCUSSED. NEW ORDERS RECIEVED. QUESTIONS ANSWERED AND CONCERNS ADRESSED.
--- NOTE | 2018-03-12 10:13 | OR ---
[facility] [address], [place] [address] Signed DATE OF OPERATION: 03/07/2018 SURGEON: Lanie Kilgore MD PREOPERATIVE DIAGNOSES: 1. Persistent distal small bowel obstruction. 2. Obesity. 3. History of Zoe-en-Y gastric bypass. POSTOPERATIVE DIAGNOSES: 1. Extensive intraabdominal small bowel adhesions. 2. Anatomy of Zoe-en-Y bypass with retention of stomach (no sign of small gastric pouch). 3. 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 PROCEDURES: 1. Extensive lysis of adhesions, prolonged complicated difficult. 2. Right partial colectomy and [id number] ileocolostomy. ASSISTANTS: Nurse (Dianelys John, RN and Catrina Caldera RN). ANESTHESIA: General endotracheal; Reyna Espana CRNA. DRAIN: 7 mm Nathan. INDICATION: This 58-year-old obese white woman was admitted by me to the hospital after presentation to the emergency room on March 05, 2018. She was found to have a rather extensive-appearing distal small bowel obstruction. She has prior history of Zoe-en-Y gastric bypass from what I can gather from available information. Notably, however, her anatomy shows the stomach to be intact and I doubt that there was any gastric pouch made. She has been fluid resuscitated, undergone nasogastric tube decompression and despite conservative measures fails to show much improvement on plain abdominal x-ray. She is taken to operation at this time to remedy the small bowel obstruction, whatever its cause. She understands the risks of bleeding, infection, need for open procedure and other unforeseen complications and wishes to proceed. Of note, she has had other prior abdominal interventions few of which she can actually relate and notably has no Electronically Signed By: LANIE KILGORE MD 03/12/18 1013 PATIENT NAME: NAFISA GALARZA OPERATIVE REPORT DATE OF : 58 REPORT #: [id number] PHYSICIAN: LANIE KILGORE MD PCP: JOHN DESAI REPORT IS CONFIDENTIAL AND NOT TO BE RELEASED WITHOUT AUTHORIZATION [facility] [address], [place] [address] Signed umbilicus which was excised in the past--somewhat indicator of prior extensive abdominal interventions. FINDINGS: The abdomen was entered without problem. She had extensive intraabdominal adhesions between bowel loops. Dilated bowel loops were noted. None were particularly ischemic. All were somewhat inflamed, but in the very distal portion where the ileum joined the cecum, there was ischemic change and marked inflammation. There were dense adhesions of bowel loops to the low pelvis. Quite notable was a very low cecum with a cecal bascule (modified cecal volvulus) likely causing the obstructive process. Once the anatomy was well defined, right partial colectomy was deemed most appropriate solution to the problem. On special note, the anatomy of the Zoe Y bypass was well defined. The Zoe limb appeared to extend to the anterior stomach, though I did not dissect out that area to any degree and was antecolic. Notable was the jejunojejunal anastomosis which was widely patent. It was particularly notable that the proximal jejunal limb, extending from the duodenum was markedly dilated, but there was no obstructive process at the anastomosis. The Zoe limb was surprisingly long in its insertion distance from the ligament of Treitz. Additionally notable was the length of the Zoe limb extending to the stomach itself. The sigmoid colon, left colon appeared normal. After dissection, there was surgical absence of pelvic organs and it appeared the vaginal cuff served as a nidus for adhesion formation of small bowel loops in the pelvis. The right colon was rather dilated and the cecal portion which extended well below the pelvic inlet and was folded back on itself had an ischemic appearance from the beginning of dissection and the ileum which was ultimately defined to this area had ischemic changes as well. I suspect a cecal bascule was the source of her obstructive problem. On that basis, right colectomy was performed with a pcih-ld-scks anastomosis. The operation was prolonged, complicated, and difficult extending from approximately 2:47 p.m. to 8:00 p.m. DESCRIPTION OF PROCEDURE: The patient was brought to the operating room, given a general endotracheal anesthetic. Preoperative antibiotic clindamycin had been given. Sequential compression device stockings used and heparin subcutaneously administered. She was given general endotracheal anesthetic without problem and a Baker catheter was then placed. The abdomen was prepared with a chlorhexidine solution and draped sterilely. There was no umbilicus. It had been resected from past operations. The midline incision extended somewhat cephalad to the area where the umbilicus would normally be. An incision was made in the old incision initially quite limited in size. She had thick abdominal wall pannus. The abdomen was ultimately entered with meticulous care showing the peritoneal Electronically Signed By: LANIE KILGORE MD 03/12/18 1013 PATIENT NAME: NAFISA GALARZA OPERATIVE REPORT DATE OF : 58 REPORT #: [id number] PHYSICIAN: LANIE KILGORE MD PCP: JOHN DESAI REPORT IS CONFIDENTIAL AND NOT TO BE RELEASED WITHOUT AUTHORIZATION [facility] [address] [facility] [place] [address] Signed wall free of intraabdominal adhesions of bowel loops. Once the abdomen was entered, a small amount of ascites type fluid was noted. The bowel loops were quite markedly dilated and somewhat inflamed. There were extensive interloop adhesions throughout. The incision was extended inferiorly initially to allow for examination of the lower abdomen which is where obstruction was defined radiographically. Dense adhesions and matted bowel precluded any obvious identification of a transition point. Incision was extended cephalad a bit. The long task of adhesiolysis was then undertaken. Using sharp electrocautery dissection, meticulous care was taken to lyse interloop adhesions freeing the small bowel fully. This was considerably lengthy and an independent operation of its own. Ultimately, the dilated jejunal loop extending from the ligament of Treitz (transition from duodenum to jejunum) was identified and it was markedly dilated. This was dissected down to what was the jejunojejunostomy from Zoe-en-Y bypass. There was no sign of obstruction at that anastomosis. The Zoe limb was dissected free from interloop adhesions and it was surprisingly lengthy more than I would have expected or performed myself. Extended in an antecolic position and attached to the anterior aspect of the stomach did not define that much was not necessary, but it was clear that the antrum of the stomach was intact. A nasogastric tube could be palpated in this area. Dissection was then taken distalward along the bowel freeing the loops. Interloop adhesions were quite extensive and ultimately were freed up down to an area of the low pelvis. An area of violaceous colon or small bowel was identified in the right lower quadrant. The right colon was identified more cephalad and appeared quite viable, but dissection distally showed the area that was likely the cecum, but later identified to only be really the mid right colon as the cecum extended extremely low into the pelvis. This was freed up more fully. There appeared to be dense adhesions of small bowel loops to what appeared to be a vaginal cuff from prior hysterectomy. With meticulous care, these were freed up ultimately identifying well the sigmoid colon and rectum which were apparently juxtaposed essentially to the region of the cecum itself. With careful inspection, it appeared the cecum extended well below the pelvic inlet and was folded back upon itself. Ultimately, it became obvious this was a cecal bascule. Further dissection of the small bowel ultimately allowed for identification of the ileum which was narrowed and scarred into the area of the cecal bascule. Irrigation was undertaken and the anatomy more carefully examined confirming findings. As there was no specific transition point for the bowel obstruction and the folded back cecal bascule with ischemic change was quite notable, was deemed likely the bowel obstruction was related to the cecal bascule. Simple unfolding of the cecal bascule was then unlikely to provide a remedy to this problem particularly as it had an ischemic appearance and as did the very distal portion of the ileum. It was not frankly necrotic by any means. It may have survived, but under the circumstances, resection was deemed most appropriate. Electronically Signed By: LANIE KILGORE MD 03/12/18 1013 PATIENT NAME: NAFISA GALARZA OPERATIVE REPORT DATE OF : 58 REPORT #: [id number] PHYSICIAN: LANIE KILGORE MD PCP: JOHN DESAI REPORT IS CONFIDENTIAL AND NOT TO BE RELEASED WITHOUT AUTHORIZATION [address] [address] Signed The Bookwalter retractor which had already been in place was rearranged and small bowel packed to the left side of the abdomen which was now completely freed up. White line of Toldt and normal-appearing though enlarged right colon was freed and using blunt dissection, retroperitoneal structures . The ureter was identified and well out of harm's way. Serial application of hemostats to the scored mesentery of the portion of the ileum and portion of right colon was undertaken. Vascular pedicle was secured with 0 silk ties. Considerable amount of fecal material which was mostly liquid in the right colon was milked into the cecal area. Bowel clamp applied and a ANALI-75 mm stapler used to transect the cecum. Further dissection was undertaken more proximally. An area considered optimally viable for the ileum was identified and transection with a ANALI stapling device made there as well. Specimen was passed off the table and examined by the team and later opened and found to have ischemic change of the mucosa of the cecum. Isolating laparotomy packs were placed. Plans were made for anastomosis. By this point, several hours of operation had been undertaken and although the bowel was somewhat edematous and full was completely viable without any enterotomies. The stapled end of the cecum and ilium were identified and the ileum and right colon aligned and secured partially with 3-0 silk sutures. Staple lines of the right colon and that of the ileum were incised with electrocautery and 75 mm stapling device placed into the colon. There was a small amount of fecal soilage which was well entrapped with laparotomy packs. The mesentery of both the colon and the small bowel were verified as not encumbered in the stapler and the stapler was fired. Inspection internally showed no sign of bleeding of the staple line. The anvil site was then oversewn with interrupted 3-0 silk sutures. In the superior aspect of the staple line, a serosal tear of the colon was noted. This was oversewn with meticulous care using interrupted 3-0 silk sutures. The areas are additionally bolstered with some more ilium sewn directly over that. Palpation of the anastomosis showed to be widely patent. Gloves were changed and irrigation undertaken the abdomen. The small bowel was replaced into a natural anatomic configuration after placement of a 7 mm flat Nathan drain in the right lower quadrant extending into the pelvis. Midline fascia was then reapproximated with running bidirectional #1 PDS suture. Subcutaneous tissue was copiously irrigated and skin secured with clips. Mepilex silver sponge dressing was applied as was an OpSite. Drain was attached to bulb suction. The operation was extremely prolonged, complicated, and difficult taking 4+ hours. Electronically Signed By: LANIE KILGORE MD 03/12/18 1013 PATIENT NAME: NAFISA GALARZA OPERATIVE REPORT DATE OF : 58 REPORT #: [id number] PHYSICIAN: LANIE KILGORE MD PCP: JOHN DESAI REPORT IS CONFIDENTIAL AND NOT TO BE RELEASED WITHOUT AUTHORIZATION [address] [address] Signed MD DANO Zapien/PRICE /[id number] Copies: ~ Electronically Signed By: LANIE KILGORE MD 03/12/18 1013 PATIENT NAME: NAFISA GALARZA OPERATIVE REPORT DATE OF : 58 REPORT #: [id number] PHYSICIAN: LANIE KILGORE MD PCP: JOHN DESAI REPORT IS CONFIDENTIAL AND NOT TO BE RELEASED WITHOUT AUTHORIZATION
--- NOTE | 2018-03-12 11:52 | NUR ---
PT UP TO BATHROOM. HAD LARGE LIQUID BM. BACK TO BED. PT IS WORRIED ABOUT DEVELOPING "DUMPING SYNDROME". TRIED REASSURING PT THAT WE WANT HER TO HAVE A BM.
--- NOTE | 2018-03-12 14:40 | NUR ---
PT OOB FOR ANOTHER BM. THEN WORKING WITH PHYSICAL THERPY. PT WALKED OUT IN FLORES 2 DOORS DOWN THEN BACK TO BED. PULSE INCREASED TO 120 WHILE AMBULATING. USED ELEMENTARY EDUCATION TEACHER WHEN BACK TO BED. SCD'S IN PLACE. CALL LIGHT IN REACH. 7UP AT BEDSIDE.
--- NOTE | 2018-03-12 14:57 | NUR ---
SBA FWW TO BATHROOM.
--- NOTE | 2018-03-12 19:05 | NUR ---
BEDSIDE REPORT RECEIVED FROM OFFGOING RN. PT LYING IN BED WATCHING TV. PT DENIES NEEDS AT THIS TIME. CALL LIGHT WITHIN REACH.
--- NOTE | 2018-03-12 20:43 | NUR ---
HELPED PT TO THE BATHROOM AND BACK TO BED WITH HER FWW. BEDSIDE TABLE AND CALL LIGHT IN REACH. FRESH ICE FOR PEPSI GIVEN.
--- NOTE | 2018-03-12 20:58 | NUR ---
PT ASSESSMENT COMPLETE. PT REPORTS PAIN TO ABD 8/10, DESCRIBES CRAMPING PAIN AFTER EATING BANANA. PT JUST UP TO THE BATHROOM WITH 1 PA AND FWW. PRN NORCO TO BE ADMINISTERED. PT REPORTS SLIGHT AMOUNT OF NAUSEA. DENIES SOB. BT'S ACTIVE. PT REPORTS PASSING FLATUS, HAD BM EARLIER TODAY. ABD TENDER TO PALPATION. DRESSING TO ABD D/I. SMALL AMOUNT OF SHADOWING NOTED TO LOWER PORTION OF MIDLINE MEPILEX. ZACARIAS DRAIN IN PLACE WITH SS DRAINAGE PRESENT. PT DENIES OTHER NEEDS AT THIS TIME. PT AGREES TO EAT CRACKERS WITH PAIN PILL. CALL LIGHT WITHIN PT REACH.
--- NOTE | 2018-03-12 21:58 | NUR ---
PT RESTING IN BED WITH EYES CLOSED. RESPIRATIONS EVEN AND UNLABORED. PT APPEARS TO BE SLEEPING. SAO2 93%, HR 97. CALL LIGHT WITHIN REACH. PT DOES NOT WAKE WHILE PSYCHOLOGICAL AIDE IN DOORWAY.
--- NOTE | 2018-03-12 22:03 | NUR ---
charge nurse rounding note: watching tv, no requests, call lihgt and fluids at bedside
--- NOTE | 2018-03-13 01:15 | NUR ---
PT RESTING IN BED WITH EYES CLOSED. PT DOES NOT WAKE WHILE PAYABLE PROCESSOR IN ROOM. SA02 94%, HR 87. CALL LIGHT WITHIN PT REACH. ROOM WITHIN VIEW OF RN STATION.
--- NOTE | 2018-03-13 02:19 | NUR ---
PT ASSESSMENT COMPLETE. PT REPORTS PAIN 8/10 TO ABD. BT'S ACTIVE. PT REPORTS PASSING FLATUS. ABD REMAINS TENDER TO PALPATION. SMALL AMOUNT OF SHADOWING PRESENT TO MIDLINE DRESSING AND ZACARIAS DRESSING. ZACARIAS WITH SMALL AMOUNT OF SS DRAINAGE PRESENT. PT WITH RHONCI THROUGHOUT, PRODUCTIVE COUGH. RHONCI DO NOT CLEAR WITH COUGH. PT DEMONSTRATES APPROPRIATE IS USE. FREQUENCY OF IS USE REINFORCED, PT STATES UNDERSTANDING. PT DENIES OTHER NEEDS AT THIS TIME. CALL LIGHT WITHIN REACH. PRN NORCO TO BE ADMINISTERED FOR 8/10 PAIN, PT EATTING JUAQUIN CRACKER PRIOR TO PAIN MEDICATION.
--- NOTE | 2018-03-13 02:40 | NUR ---
PT UP TO USE THE BATHROOM WITH 1PA AND FWW. PT TOLERATED WELL, ASSISTED BACK TO BED. PT REQUEST TO HAVE CPAP APPLIED. RT NOTIFIED.
--- NOTE | 2018-03-13 03:57 | NUR ---
PT TAKES CPAP OFF, STATES THAT SHE DOES NOT LIKE THE MASK. STATES THAT IT LEAKS AND IS UNCOMFORTABLE. SA02 95%. PT ON RA.
--- NOTE | 2018-03-13 05:17 | NUR ---
PT SLEPT WELL THIS SHIFT. NORCO X 2 FOR PAIN. NAUSEA WELL CONTROLLED THIS SHIFT, NO ANTIEMETICS REQUIRED. CPAP USED FOR ~1 HOUR, PT DID NOT TOLERATE. PT TOLERATING RA WELL. CPOX IN PLACE. PT WITH RHONCI THROUGHOUT, PRODUCTIVE OCCASIONAL COUGH. ENCOURAGE COUGH AND DEEP BREATHING, AND IS USE. MIDLINE MEPILEX AND OPSITE WITH SMALL AMOUNT OF SHADOWING PRESENT. ZACARIAS DRAIN TO RLQ WITH SS DRAINAGE. PT PASSING FLATUS THIS SHIFT, BT'S ACTIVE, SLIGHT ABD TENDERNESS PRESENT. 1 PA WITH FWW TO BATHROOM. UO QS. PT TOLERATED BANANA AND CRACKERS THIS SHIFT. [id number].
--- NOTE | 2018-03-13 05:17 | NUR ---
PT RESTING WITH EYES CLOSED, APPEARS TO BE SLEEPING. SA02 93%. PT DOES NOT WAKE WHILE ADJUSTER AND INSPECTOR IN DOORWAY. CALL LIGHT WITHIN REACH.
--- NOTE | 2018-03-13 06:57 | NUR ---
PT C/O CRAMPING AND NAUSEA. PT STATES THAT SHE NEEDS TO USE THE BATHROOM. PASSING FLATUS. PT HAD SM BM, CARTER. PRN ZOFRAN ADMINISTERED FOR NAUSEA. PT DENIES OTHER NEEDS AT THIS TIME. CALL LIGHT WITHIN REACH. ROOM WITHIN VIEW OF RN STATION.
--- NOTE | 2018-03-13 08:55 | NUR ---
PT REQUESTING PAIN MEDICATION. PT RATING PAIN HIGH 10/10 TO ABD, BACK "EVERYWHERE". PT WITH OCCASIONAL GRIMACE, RESTING QUIETLY IN BED, WATCHING TV. 1 TAB NORCO GIVEN PER ORDER. PT DENIES OTHER NEEDS AT THIS TIME.
--- NOTE | 2018-03-13 09:36 | NUR ---
PT UP TO RESTROOM WITH GAS. BACK TO BED ADN STATES SHE DOES NOT FEEL WELL THIS MORNING. TEMP OF 102.1, TACHY AT 131 AND LOW BP OF 93
--- NOTE | 2018-03-13 09:37 | NUR ---
ADMINISTERED MOTRIN FOR FEVER.
--- NOTE | 2018-03-13 09:58 | NUR ---
INSTRUCTED PT TO USE IS AND WATCHED HER USE IT. WILL REASSESS VS SHORTLY AND CALL DR. KILGORE.
--- NOTE | 2018-03-13 10:15 | NUR ---
pt is sitting up in bed resting safely with call light in reach. pt's temp and HR were both very elevated and BP was low, nurse notifed. vitals retaken after 15-20 minutes per nurse's instructions. temp and HR had decreased and BP and increased, reported to nurse. pt did not eat any breakfast due to an upset stomach. pt was offered a shower but is declining at this time, will recheck later.
--- NOTE | 2018-03-13 12:55 | NUR ---
PT UP TO RESTROOM AGAIN FOR GAS. SAT IN CHAIR FOR APPROX 1 1\2 HOURS. 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 TEMP NOW NORMAL.
--- NOTE | 2018-03-13 13:23 | NUR ---
PT INTO RESTROOM FOR LARGE LIQUID BM. ANTOHER [address] IN TO SEE PT AND REMOVE DRESSING AND DRAIN. PT TOLERATED WELL.
--- NOTE | 2018-03-13 14:22 | NUR ---
pt asked to go back to bed, assisted pt to bed where she is now resting safely with call light in reach. pt still does not want to shower.
--- NOTE | 2018-03-13 16:44 | NUR ---
MOVED PT TO ROOM 115. PT ABLE TO WALK ENTIRE WAY TO ROOM ON OWN WITH FWW. PT STATES SHE IS EXHAUSTED. ADMINSTERED PAIN, SCHEDULED AND NAUSEA MEDS. PT NOW WOULD LIKE TO TAKE A NAP.
--- NOTE | 2018-03-13 17:50 | NUR ---
PT UP TO RESTROOM AGAIN. STATES HER SHOULDERS ARE SORE. HEAT PACK IN PLACE. PT ALSO STILL NAUSEOUS. ADMINISTERED PHENEGREN. VS STABLE, SLIGHT TEMP AT 99.7. HR 124.
--- NOTE | 2018-03-13 18:07 | NUR ---
PT MOVED DOWN FLORES TODAY. WALKED ENTIRE FLORES. ZACARIAS AND DRESSINGS REMOVED. INCISION CDI IWTH ADRIEN INTACT. SL, FRAGILE IV IN WRIST. MULTIPLE LIQUID BOWEL MOVEMENTS. HAD FEVER OF 102 THIS MORNING. LOW GRADE OFF AND ON THROUGHOUT DAY. TACHY. REFUSES CPAP. GIVEN ZOFRAN, PHEN. NORCO AND MOTRIN.
--- NOTE | 2018-03-13 18:11 | NUR ---
Nurse Wright took and charted vitals and I&Os. pt is resting in bed safely with call light in reach
--- NOTE | 2018-03-13 19:10 | NUR ---
BEDSIDE REPORT RECEIVED FROM OFFGOING RN. PT RESTING IN BED WITH EYES CLOSED. DOES NOT WAKE DURING REPORT. PT CALL LIGHT WITHIN REACH.
--- NOTE | 2018-03-13 20:36 | NUR ---
PT ASSESSMENT COMPLETE. PT RATES PAIN 10/10 TO L SHOULDER AND BACK. DISCUSSED AVAILABLE PAIN MEDICATIONS WITH PT. PT DECLINES MOTRIN OR TYLENOL. STATES THAT THESE ARE TOO HARD ON HER STOMACH. PT AGREES TO WAIT UNTIL NORCO IS AVAILBLE. PT DECLINES ICE TO SITE. PT DENIES NAUSEA OR SOB AT THIS TIME. BT'S ACTIVE, PT CONTINUES TO HAVE LOOSE STOOL. ABD TENDER TO PALPATION. DARIEN/MIDLINE INCISION PATRICIA, NO DRAINAGE NOTED. BANDAID OVER OLD DRAIN SITE C/D/I. LUNNGS SOUND COARSE THROUGHOUT. PT ABLE TO DEMONSTRATE APPROPRIATE IS USE. PT DENIES FURTHER NEEDS AT THIS TIME. CALL LIGHT WITHIN REACH ARE PERSONAL ITEMS.
--- NOTE | 2018-03-13 22:09 | NUR ---
3 UNSUCCESSFUL IV ATTEMPTS BY ART RN - 3 UNSUCCESSFUL IV ATTEMPTS BY DANNY JONES RN
--- NOTE | 2018-03-13 22:25 | NUR ---
NOTIFIED OF INABILITY TO START NEW IV. OK'D TO LEAVE PT'S IV OUT. PT REQUESTING PRN PAIN MEDICATION. NORCO ADMINISTERED. PT DENIES FURTHER NEEDS AT THIS TIME. CALL LIGHT WITHIN REACH.
--- NOTE | 2018-03-14 00:23 | NUR ---
PT RESTING IN BED WITH EYES CLOSED. RESPIRATIONS ARE EVEN AND UNLABORED. NO S/SX OF DISTRESS NOTED. PT APPEARS TO BE SLEEPING. CALL LIGHT WITHIN REACH.
--- NOTE | 2018-03-14 02:06 | NUR ---
PT ASSESSMENT COMPLETE. PT RESTING IN BED WITH EYES CLOSED. PT DOES NOT WAKE WHEN SPINNING BATH PERSON ENTERS THE ROOM. PT WAKES TO VOICE. PT IMMEDIATELY RATES PAIN 10/10. EDUCATION RE: PAIN SCALE PROVIDED. PT CONTINUES TO RATE 10/10. INFORMED PT THAT NEXT NORCO DUE IN 2 HOURS. PT STATES UNDERSTANDING. LUNG SOUNDS COARSE IN BILATERAL UPPER LOBES, DIMINSIHED IN BILATERAL BASES. PT REPORTS CONTINUING PRODUCTIVE COUGH. MIDLINE DARIEN INTACT, NO DRAINAGE NOTED. OLD ZACARIAS SITE WITH BANDAID, SMALL AMOUNT OF DRAINAGE NOTED. BT'S ACTIVE. PT DENIES TENDERNESS TO ABDOMINAL PALPATION. PT REQUESTING 7UP TO DRINK, PROVIDED. DENIES OTHER NEEDS AT THIS TIME. CALL LIGTH WITHIN REACH.
--- NOTE | 2018-03-14 03:16 | NUR ---
PT ASSISTED UP TO THE BATHROOM BY RN LOADING UNIT OPERATOR. PT NOTED TO HAVE LARGE AMOUNT OF DRAINAGE BROWNISH/RED FROM LOWER PORTION OF MIDLINE INCISION. PT ASSISTED BACK TO BED AFTER URING THE BATHROOM. MIDLINE INCISION FURTHER ASSESSED. PT NOTED TO HAVE HARDNESS TO EITHER SIDE OF THE INCISION. WHEN THESE AREAS WERE PRESSED MORE BROWNISH/RED DRAINAGE CAME FROM INCISION. PT DENIES FURTHER NEEDS AT THIS TIME CALL LIGHT WITHIN REACH. MD NOTIFIED OF FINDINGS BY PHONE. MD WOULD LIKE IV RESTARTED, ABD PAD TO BE PLACED TO SITE. VITAL SIGNS WNL, HR 111.
--- NOTE | 2018-03-14 04:30 | NUR ---
PT SLEPT WELL THIS SHIFT. NORCO X 1 FOR PAIN. NO NAUSEA. PT CONTINUES TO HAVE PRODUCTIVE COUGH PER HER REPORTS. LUNGS SOUND COARSE, OCCASIONAL RHONCI. MIDLINE INCISION CONTROL INTEGRATION ENGINEER. PT GOT UP TO USE THE BATHROOM AROUND 0300 HAD LARGE AMOUNT OF BROWNISH/ RED DRAINAGE FROM BOTTOM OF INCISION. HARD POCKETS NOTED TO EACH SIDE OF BOTTOM INCISION. MD NOTIFIED, ABD PAD PLACED TO SITE PER MD. PT PASSING FLATUS, HAVING BM'S THROUGHOUT THE NIGHT. BT'S ACTIVE. NEW IV SITE PLACED BY BUFFER MACHINE. IV SL. 1 PA TO BR WITH FWW. UO QS.
--- NOTE | 2018-03-14 06:13 | NUR ---
PT UP TO USE THE BATHROOM AND BACK TO BED WITH 1 PA AND FWW. PT TOLERATED WELL. PT REPORTS PAIN "EVERYWHERE", RATES 10/10. PRN NORCO ADMINISTERED. NO NEW DRAINAGE NOTED TO ABD PAD OVER MIDLINE INCISION. PT REQUESTS MORE 7UP, PROVIDED. PT DENIES FURTHER NEEDS AT THIS TIME. CALL LIGHT WITHIN REACH.
--- NOTE | 2018-03-14 07:39 | NUR ---
PATIENT RESTING, EYES CLOSED. CALL LIGHT IN REACH. AM CARE SET UP FOR PATIENT TO USE AT ANOTHER TIME. NO OTHER NEEDS AT THIS TIME.
--- NOTE | 2018-03-14 08:07 | NUR ---
PATIENT STATES SHE DOES NOT WANT BREAKFAST AT THIS TIME, SHE HAS AN UPSET STOMACH. PATIENT WASHED HANDS AND FACE WITH COLD WASH CLOTH. PATIENT RESTING IN BED, STATES SHE IS SLIGHTLY NAUSEOUS. RN NOTIFIED. NO OTHER NEEDS AT THIS TIME.
--- NOTE | 2018-03-14 09:07 | NUR ---
PT CONT TO HAVE LOW GRADE TEMP 99.3 ORALLY THIS AM. PT USING I.S. FREQUENTLY AND APPROPRIATELY. PT DENIES PAIN AT THIS TIME. REPORTS NAUSEA, MEDICATED WITH ORAL ZOFRAN. PT REFUSED BREAKFAST THIS AM D/T NAUSEA. BT ACTIVE, PT REPORTS POSITIVE FLATUS. OCC MOIST COUGH. MIDLINE INCISION OPEND TO AIR. NO DRAINAGE OR BLEEDING NOTED. DARIEN INTACT, NO REDNESS OR INFLAMMATION NOTED, INCISION WELL APPROXIMATED. PT ALERT AND ORIENTED. CALL LIGHT WITHIN REACH.
--- NOTE | 2018-03-14 10:20 | NUR ---
PT RESTING IN BED WITH EYES CLOSED, RESP EVEN AND UNLABORED.
--- NOTE | 2018-03-14 10:53 | NUR ---
THIS AUTO TECH ASSISTED PATIENT UP TO BATHROOM. PATIENT COMPLAINS OF PAIN AND NAUSEA. RN NOTIFIED. PATIENT HAS BLOOD AND CLEAR DISCHARGE COMING FROM INCISION SITE, UNDERWEAR SOILED. RN NOTIFIED. PATIENT GIVEN CLEAN UNDERWEAR AND ABDOMINAL PAD FOR LEAKAGE. NO OTHER NEEDS AT THIS TIME.
--- NOTE | 2018-03-14 12:10 | NUR ---
PT CONT TO HAVE LOW GRADE TEMPS. DR. JAME JAVIER.
--- NOTE | 2018-03-14 12:15 | NUR ---
DR. KILGORE ROUNDED ON PT. SWABBED ABD INCISION FOR CULTURE, SENT TO LAB. PACKED WOUND WITH DRY KERLEX GAUZE. ORDERS PUT IN FOR DRESSING CHANGES.
--- NOTE | 2018-03-14 12:27 | NUR ---
PT RESTING IN BED WITH EYES CLOSED, RESP EVEN AND UNLABORED. PT AWOKE EASILY BUT REMAINS DROWSY. MEDICATED WITH SCHEDULED MEDS. CALL LIGHT WITHIN REACH.
--- NOTE | 2018-03-14 14:34 | NUR ---
PT SITTING UP IN BED WATCHING TV. DENIES NEEDS OR CONCERNS AT THIS TIME. CALL LIGHT WITHIN REACH.
--- NOTE | 2018-03-14 14:40 | NUR ---
patient has been up and down quite often for the bathroom, stool sample is needed, updated nurse
--- NOTE | 2018-03-14 16:03 | NUR ---
PT SBA WITH WALKER TO RESTROOM. AMB BACK TO BED. PT STATES "I FEEL SO WEAK TODAY." CALL LIGHT WITHIN REACH.
--- NOTE | 2018-03-14 17:25 | NUR ---
THIS HIGH PRESSURE OPERATOR ASSISTED PATIENT UP INTO SHOWER. PATIENT SHOWERED WITH ASSISTANCE. THIS HIGH PRESSURE OPERATOR PERFORMED PERICARE AND SKINCARE. PATIENT HAS REDNESS AND SKIN BREAKDOWN UNDER BREASTS, RN NOTIFIED. PATIENT BACK IN BED, RN IN ROOM FOR DRESSING CHANGE. CALL LIGHT IN REACH. NO OTHER NEEDS AT THIS TIME.
--- NOTE | 2018-03-14 18:46 | NUR ---
PATIENT HAS HAD LIQUID BM NONSTOP FOR THE LAST HOUR. PATIENT STATES SHE IS UNABLE TO CONTROL IT OR HOLD IT IN LONG ENOUGH TO MAKE IT TO THE BATHROOM. PATIENT USING BEDSIDE COMMODE AT THIS TIME. PATIENT APPEARS TO HAVE ELEVATED ANXIETY AND CRIES OUT CONSTANTLY THAT "I AM SO TIRED OF THIS, I CANT KEEP THIS UP, MY BODY IS GIVING UP, ITS PREPARING ME TO GO TO THE OTHER SIDE. I DONT WANT TO . I AM TOO TIRED TO KEEP DOING THIS. PLEASE MAKE IT STOP." RN NOTIFIED. PATIENT STILL USING BEDSIDE COMMODE. THIS GEOTHERMAL HVAC TECHNICIAN SET UP SPECIMEN CUP FOR STOOL SAMPLE. PATIENT CALL LIGHT IN REACH. NO OTHER NEEDS AT THIS TIME.
--- NOTE | 2018-03-14 18:54 | NUR ---
PT UP TO BSC. HAVING PROFUSE LIQUID STOOL. HR 135-140 AND IRREGULAR. PT REPORTS FEELING WEAK, TEARFUL STATES "I JUST WISH THIS WOULD STOP, I'M FEELING SO WEAK." DR. KILGORE NOTIFIED. IMODIUM ORDERED WELL FLUID BOLUS. SCHEDULED METOPROLOL GIVEN EARLY PER DR. KILGORE.
--- NOTE | 2018-03-14 19:15 | NUR ---
BEDSIDE REPORT RECEIVED FROM OFFGOING RN. PT RESTING WITH EYES CLOSED. CALL LIGHT WITHIN REACH.
--- NOTE | 2018-03-14 22:01 | NUR ---
PT ASSESSMENT COMPLETE. PT RATES PAIN 10/10 "EVERYWHERE". PRN NORCO ADMINISTERED. PT DENIES NAUSEA AND SOB. PT STATES THAT SHE STILL OCCASIONALL HAS SPUTUM PRODUCUTION AND OCCASIONAL COUGH. LUNG SOUNDS CLEAR TO BILATERAL UPPER LOBES, DIM TO BILATERAL LOWER LOBES. MIDLINE INCISION WITH STAPES, KERLEX PACKING PRESENT AT INFERIOR PORTION OF THE WOUND. SEROSANGUINEOUS DRAINAGE PRESENT TO ATTENDS. OLD ZACARIAS SITE HAS BANDAID IN PLACE, D/I. PT HAS VARIOUS BRUISING HEAD TO TOE. PT ASSISTED TO THE BATHROOM AND BACK TO BED WITH 1PA AND WALKER. PT C/O FEELING WEAK. PT DENIES OTHER NEEDS AT THIS TIME. CALL LIGHT WITHIN REACH.
--- NOTE | 2018-03-14 22:10 | NUR ---
DRESSING CHANGED PERFORMED TO INFERIOR PORTION OF MIDLINE INCISION. STERILE KERLIX, Q-TIPS, AND GLOVES UTILIZED. ABD PAD PLACED OVER TAIL OF PACKING. PT TOLERATED WELL. DENIES OTHER NEEDS AT THIS TIME. CALL LIGHT WITHIN REACH.
--- NOTE | 2018-03-14 23:27 | NUR ---
PATIENT UP AND AMBULATED WITH 1PSBA AND FWW, VOIDED AND BACK TO BED. CALL LIGHT IN REACH.
--- NOTE | 2018-03-15 01:15 | NUR ---
PT RESTING IN BED WITH EYES CLOSED. RESPIRATIONS ARE EVEN AND UNLABORED. PT DOES NOT WAKE WHILE DIRECTOR MEDICAL SAFETY IN DOORWAY. PT APPEARS TO BE SLEEPING. CALL LIGHT WITHIN REACH.
--- NOTE | 2018-03-15 01:56 | NUR ---
PT RESTING IN BED WITH EYES CLOSED. PT DOES NOT WAKE WHILE BANQUET SUPERVISOR IN DOORWAY. PT APPEARS TO BE SLEEPING. CALL LIGHT WITHIN REACH.
--- NOTE | 2018-03-15 03:37 | NUR ---
PT RESTING IN BED WITH EYES CLOSED. PT WAKES EASILY TO VOICE. PT ASSESSMENT COMPLETE. PT RATES PAIN 9/10, "EVERYWHERE". PRN NORCO ADMINISTERED. PT DENIES NAUSEA OR SOB AT THIS TIME. LUNGS SOUND CLEAR TO BILATERAL UPPER LOBES, DIMINISHED TO BILATERAL LOWER LOBES. PT REPORTS THAT COUGHING IS GREATLY DECREASED FROM PREVIOUS. BT'S ACTIVE. NO BM THIS SHIFT. PT STATES THAT SHE GENERALLY HAS DIARRHEA AFTER TAKING IN MILK PRODUCTS, STATES THAT SHE GETS DIARRHEA AFTER DRINKING ENSURE IN THE PAST. PT REPORTS ABD "TENDER IN SPOTS". MIDLINE INCISION WELL APPROXIMATED, DARIEN IN PLACE. KERLEX PACKING PRESENT TO INFERIOR PORTION OF WOUND. SCANT SEROSANGUINEOUS DRAINAGE NOTED AT THIS TIME. PT DENIES FURTHER NEEDS. CALL LIGHT WITHIN REACH.
--- NOTE | 2018-03-15 04:32 | NUR ---
PATIENT UP TO THE RESTROOM AGAIN WITH 1PSBA AND FWW, VOIDED, AND THEN WENT BACK TO BED AND TRYING TO GET SOME MORE SLEEP.
--- NOTE | 2018-03-15 04:53 | NUR ---
PT UTILIZES CALL LIGHT, REPORTS CHEST PAIN. WRTIER TO ROOM, PT DESCRIBES 10/10 CHEST PAIN, STATES THAT IT "FEELS LIKE AN ELEPHANT IS SITTING ON HER CHEST". PT STATES MAYBE I TOOK A DRINK WRONG. OFFERED PT ANOTHER DRINK SHE STATES SHE DOES NOT THINK THIS WILL HELP. RT TO ROOM FOR EKG. EKG ON CHART. AFTER EKG PT STATES, "I THINK IF YOU REPOSITION MY PILLOW IT WILL MAKE IT BETTER." PT REPOSITIONED. STATES THAT PAIN TO CHEST IS RELIEVED.PT DENIES FURTHER NEEDS AT THIS TIME CALL LIGHT WITHIN REACH.
--- NOTE | 2018-03-15 05:00 | NUR ---
INADVERTENTLY PUT THE EKG ORDER IN UNDER DR SAENZ, WHEN IN FACT IT SHOULD HAVE BEEN DR. KILGORE. DELETED ORDER AND REORDERED UNDER DR KILGORE, PT WAS HAVING CHEST PAIN. EKG WAS COMPLETED BY RT KALYAN.
--- NOTE | 2018-03-15 05:15 | NUR ---
PT UP OFF AND ON THIS SHIFT. NORCO X 2 FOR PAIN. NO ANTIEMETICS REQUIRED. PT C/O CHEST PAIN ~0430, RELIEVED BY REPOSITIONING PILLOW. LUNGS CLEAR TO BILATERAL UPPER LOBES, DIM TO BILATERAL BASES. COUGH IMPROVED. MIDLINE INCISION WITH DARIEN, WELL APPROXIMATED. PACKING WITH KERLEX TO INFERIOR PORTION OF THE WOUND, SANGUINEOUS TO SEROSANGUINEOUS DRAINAGE PRESENT. CHANGE BID-TID ORDERED. ATTENDS IN PLACE. NO BM THIS SHIFT. C-DIFF PENDING. LR @ 125. 1 PA WITH FWW. REGULAR DIET.
--- NOTE | 2018-03-15 08:12 | NUR ---
PT AWAKE IN BED WATCHING TV. APPEARS TO BE IN BETTER SPIRITS THIS AM. REPORTING "A LITTLE BIT OF PAIN". DENIES NEED FOR PAIN MEDS AT THIS TIME. DENIES NAUSEA. NOTED THAT PT HAS HAD VERY DECREASED APPETITE STATES "THINGS JUST DON'T TASTE RIGHT TO ME." WILL ENCOURAGE CLEAR ENSURE. MIDLINE INCIION OPEN TO AIR, DARIEN IN PLACE AND WNL. GAUZE PACKING IN BOTTOM INCH OF INCISION PER DR. KILGORE. MILD SEROSANGUINOUS DRAINAGE NOTED. ZACARIAS DRAIN SITE COVERED WITH BANDAID, NO NEW DRAINAGE OR INFLAMMATION. IV INFUSING WNL. PT ALERT AND ORIENTED. CALL LIGHT WITHIN REACH.
--- NOTE | 2018-03-15 09:01 | NUR ---
PATIENT CALLED TO GO BATHROOM. PATIENT BACK TO BED. PATIENT COMPLAINS ABOUT PAIN. PATIENT RATES HER PAIN A 8 OUT OF 10. RN NOTIFIED. CALL LIGHT WITHIN REACH. NO OTHER NEEDS AT THIS TIME.
--- NOTE | 2018-03-15 09:44 | NUR ---
Pt. called and needed to use the restroom, since we were already in the bathroom I got her showered. Dr. Mina came in the room and discussed the plan. pt was steady and very talkative. got her to the chair and call light in place.
--- NOTE | 2018-03-15 10:00 | NUR ---
PT SHOWERED WITH ASSISTANCE FROM RFID MANAGER. PT AMB IN ROOM TO CHAIR. SITTING UP IN RECLINER. ABD PACKING REMOVED AND REPACKED PER ORDERS. MODERATE AMOUNT OF SEROSANGUIOUS DRAINAGE WITH SOME PURULENT DRAINAGE NOTED, NO ODOR NOTED AT THIS TIME. P.T. IN ROOM TO ASSIST PT WITH EXERCISES.
--- NOTE | 2018-03-15 10:06 | NUR ---
PATIENT SITING UP IN CHAIR. PATIENT GO TO BATHROOM.LINES CHANGED. PATIENT BACK TO BED TO TAKE VITALS. OT IN ROOM. VITALS AND I&O DONE. PATIENT GO TO WALK WITH OT. ICE WATER GIVEN. NO OTHER NEEDS AT THIS TIME.
--- NOTE | 2018-03-15 11:05 | NUR ---
PT ASSISTED TO RESTROOM AND BACK TO BED. IV RESTARTED, FLUSHES WELL, DRESSING CDI. PT GIVEN WARM PACK FOR C/O OF PAIN IN LEFT SHOULDER. MEDICATED PREVIOUSLY BY ROCHELLE NUR.
--- NOTE | 2018-03-15 12:01 | NUR ---
PATIENT CALL TO GO TO BR. PATIENT BACK TO BED. PATIENT COMPLAINS ABOUT PAIN. PATIENT RATES HER PAIN A 9 OUT OF 10. RN NOTIFIED. CALL LIGHT WITHIN REACH. NO OTHER NEEDS AT THIS TIME.
--- NOTE | 2018-03-15 12:27 | NUR ---
PT MEDICATED WITH SCHEDULED MEDS AND PRN IBUPROFEN FOR C/O 910 GENERALIZED PAIN. PT WATCHING TV. REPORTS THAT SHE TRIED TO EAT SOME MASHED POTATOES BUT "DIDN'T LIKE THE GRAVY." CALL LIGHT WITHIN REACH.
--- NOTE | 2018-03-15 13:09 | NUR ---
PATIENT RESTING IN BED. VITAL AND I&O DONE. ICE WATER GIVEN. CALL LIGHT WITHIN REACH. NO OTHER NEEDS AT THIS TIME.
--- NOTE | 2018-03-15 13:16 | NUR ---
PT SITTING UP IN BED WATCHING TV AND EATING LUNCH. PT COMPLAINS THAT FOOD IS JUST NOT WHAT SHE IS USED TO. PT REQUESTED HER OPTICAL LATHE OPERATOR BE CONTACTED, WHICH I DID. HE WILL COME TODAY FOR A VISIT. PRAYED WITH PT, WILL FOLLOW NEEDED
--- NOTE | 2018-03-15 14:52 | NUR ---
PATIENT CALLS TO GO TO BR. PATIENT BACK TO CHAIR. CALL LIGHT WITHIN REACH. NO OTHER NEEDS AT THIS TIME.
--- NOTE | 2018-03-15 15:17 | NUR ---
SHEILA CALLS TO USE THE BR. PATIENT BACK TO BED. CALL LIGHT WITHIN REACH. NO OTHER NEEDS AT THIS TIME.
--- NOTE | 2018-03-15 15:27 | NUR ---
NOTED PACKING SATURATED WITH SEROSANGUINOUS DRAIANGE. DRESSING CHANGED. REPACKED WITH FRESH, DRY KERLEX GAUZE. PT WILLEM WELL. CALL LIGHT WITHIN REACH.
--- NOTE | 2018-03-15 16:33 | NUR ---
PATIENT CALLS TO USE THE BR. PATIENT BACK TO BED. PATIENT ASKS TO TALK WITH RN. RN NOTIFIED. CALL LIGHT WITHIN REACH. NO OTHER NEEDS AT THIS TIME.
--- NOTE | 2018-03-15 16:50 | NUR ---
PATIENT CALLS FOR PAIN MEDICINE. RN NOTIFIED. NO OTHER NEEDS AT THIS TIME.
--- NOTE | 2018-03-15 17:10 | NUR ---
SBA WITH FWW INTO BATHROOM TO VOID, MINIMAL ASSIST. SCANT AMOUNT RED SERROUS DRAINAGE ON ABD DRSG. HYDROCODONE GIVEN FOR GENERALYZED [place] PAINS. WATCHING MOVIE ON TV. CALL LIGHT IN EASY REACH.
--- NOTE | 2018-03-15 18:09 | NUR ---
PT STATES SHE HAD A GOOD DAY, APPETITE BETTER FOR DINNER. AFEBRILE TODAY. CONT. BID DRSG CHANGES.
--- NOTE | 2018-03-15 18:13 | NUR ---
PATIENT RESTING IN BED. VITALS AND I&O DONE. BLOOD PRESURE LILI, RN NOTIFIED. ICE WATER GIVEN. CALL LIGHT WITHIN REACH. NO OTHER NEEDS AT THIS TIME.
--- NOTE | 2018-03-15 18:25 | EKG ---
[facility] [address] [place], [place] [address] Signed Sinus tachycardia Possible Left atrial enlargement Inferior infarct , age undetermined Abnormal ECG No previous ECGs available Confirmed by MALVIN SAENZ MD ([id number]) on 03/15/2018 6:25:17 PM Electronically Signed By: MALVIN SAENZ MD 03/15/18 1825 PATIENT NAME: NAFISA GALARZA Electrocardiogram DATE OF : 58 PHYSICIAN: MALVIN SAENZ MD REPORT #: [id number] REPORT IS CONFIDENTIAL AND NOT TO BE RELEASED WITHOUT AUTHORIZATION
--- NOTE | 2018-03-15 19:10 | NUR ---
BEDSIDE REPORT RECEIVED FROM OFFGOING RN. PT RESTING IN BED, CALL LIGHT WITHIN REACH.
--- NOTE | 2018-03-15 20:11 | NUR ---
HELPED PT TO RESTROOM WITH FWW AND BACK TO BED. SCDS ARE IN PLACE AND HEAT PAD TO LEFT SHOULDER. VS TAKEN AND ENTERED. PT HAS FRESH WATER AT BEDSIDE AND DENIES FURTHER NEEDS.
--- NOTE | 2018-03-15 20:52 | NUR ---
HELPED PT TO RESTROOM AND BACK TO BED, SHE DENIES FURTHER NEEDS.
--- NOTE | 2018-03-15 22:50 | NUR ---
PT ASSESSMENT COMPLETE. PT RATES PAIN 9/10, GENERALIZED. PRN NORCO ADMINISTERED. PT DIAPHORETIC, ROOM WARM, PT STATES SHE IS TOO HOT. TEMP ADJUSTED. LUNGS SOUND CLEAR TO ALL LOBES, PT REPORTS CONTINUING OCCASIONAL COUGH. BT'S ACTIVE, PT DENIES BM TODAY. ABDOMEN TENDER TO PALPATION. MIDLINE INCISION WELL APPROXIMATED. PACKING PRESENT TO INFERIOR ASPECT OF WOUND. SEROSANGUINEOUS DRAINAGE PRESENT. WOUND CARE PERFORMED ORDERED. SANGUINEOUS AND PURULENT DRAINAGE PRESENT TO PACKING REMOVED FROM WOUND. PT TOLERATED WELL. PT DENIES FURTHER NEEDS AT THIS TIME. CALL LIGHT WITHIN PT REACH.
--- NOTE | 2018-03-16 00:20 | NUR ---
PT RESTING IN BED WITH EYES CLOSED. PT SNORING AUDIBLY. PT APPEARS TO BE SLEEPING, PT DOES NOT WAKE WHILE WEB MARKETING MANAGER IN DOORWAY. CALL LIGHT WITHIN PT REACH.
--- NOTE | 2018-03-16 03:12 | NUR ---
PT ASSESSMENT COMPLETE. PT STATES THAT PAIN IS "OK". LUNG SOUNDS CLEAR. PT DENIES SOB. PT ABD SLIGHTLY DISTENDED. BT'S ACTIVE. MIDLINE INCISION WELL APPROXIMATED. INFERIOR PORITION PACKED WITH GAUZE. SEROSANGUINEOUS DRAINAGE PRESENT WITH ABD REINFORCEMENT TO INFERIOR PORTION OF MIDLINE INCISION. PT REPORTS TENDERNESS TO ABD PALPATION. PT DENIES NEEDS AT THIS TIME. AGREES TO USE CALL LIGHT FOR NEEDS.
--- NOTE | 2018-03-16 04:44 | NUR ---
VS & I&O'S COMPLETE AND HELPED PT TO THE RESTROOM AND BACK TO BED. FRESH WATER IS AT BEDSIDE.
--- NOTE | 2018-03-16 06:37 | NUR ---
PT RESTED WELL THIS SHIFT. NORCO X 2 FOR PAIN. NO EPISODES OF NAUSEA. MIDLINE INCISION WELL APPROXIMATED. KERLEX PACKING TO INFERIOR PORTION OF WOUND WITH SEROSANG DRAINAGE. DRESSING CHANGED THIS SHIFT ORDERED. NO NEW DRAINAGE FROM OLD ZACARIAS SITE THIS SHIFT. BT'S ACTIVE. NO BM THIS SHIFT. PT REPORTS TENDERNESS TO ABD. 1 PA WITH FWW TO BR. UO QS. LR @ 125. RED DIET, ENCOURAGE INTAKE, AVOID LACTOSE.
--- NOTE | 2018-03-16 09:17 | NUR ---
PATIENT UP TO SHOWER CHAIR AND BACK TO BED 1 PERSON ASSIST FWW. PATIENT MOSTLY INDEPENDENT IN SHOWER. NEW GOWN PROVIDED. LINENS CHANGED. FRESHWATER GIVEN. CALL LIGHT IN REACH. NO FURTHER NEEDS AT THIS TIME.
--- NOTE | 2018-03-16 09:22 | NUR ---
PT STATES SHE SLEPT BETTER LAST NIGHT AND HAD MORE OF AN APPETITE THIS MORNING. AFEBRILE. UP EARLY FOR SHOWER. IN GOOD SPIRITS.
--- NOTE | 2018-03-16 10:23 | NUR ---
WALKED IN HALLWAY WITH PT, TOLERATED WELL. C/O DARIEN PULLING WHEN SHE AMBULATES. DARIEN ARE INTACT SOME REDNESS AT INSETION SITE, WOUND WAS REPACKED WITH DRY STERILE GAUZE AND ABD TO COVER. SCANT AMOUNT REDDISH DRAINAGE ON OLD DRESSING. ZACARIAS SITE NO LONGER DRAINING.
--- NOTE | 2018-03-16 12:12 | NUR ---
PT LAYING IN BED, ALERT AND ORIENTED. SHE SAID SHE WAS A LITTLE SORE-HAD BEEN UP AND WALKING IN UNIT. I ENCOURAGED HER TO CONTINUE TO WORK ON HER RECOVERY AND DC HOME. EXTENDED A BLESSING WILL FOLLOW NEEDED
--- NOTE | 2018-03-16 12:53 | NUR ---
ATE 30% OF LUNCH, SIPPING FLUIDS, NEEDS ENCOURAGEMENT TO DRINK. IVF PATENT AND URINE OUTPUT IS VERY GOOD. MINIMAL ASSIST OOB. CONT. TO C/O DARIEN PULLING AND ITCHING. INSTRUCTED PT TO STOP TOUCHING AND RUBBING THEM. PACKING IN PLACE NO INCREASE IN DRAINAGE OR REDNESS. RESTING IN BED AT THIS TIME.
--- NOTE | 2018-03-16 14:26 | NUR ---
PATIENT TOILETED AND LAYED BACK DOWN. DID VITALS AND I&O'S. CALL LIGHT IN REACH. PATIENT NEEDS NOTHING ELSE.
[2018-03-16] MEDS ORDERED: LEVAQUIN750 MG PO (17:40)
[2018-03-16] MEDS ORDERED: METRONIDAZOLE250 MG PO (17:40)
--- NOTE | 2018-03-16 18:00 | NUR ---
DR KILGORE IN TO SEE PT. DISCUSSED GOING HOME TONIGHT. PT ABLE TO DEMONSTRATE ABD WOUND PACKING BY HERSELF. STATES SHE IS COMFORTABLE DOING WOUND CARE. DRESSING SUPPLIES PROVIDED FOR [address] KILGORE AND DC ORDERS WILL BE WRITTEN FOR HER.
--- NOTE | 2018-03-16 18:37 | NUR ---
DISCHARGE INSTRUCTIONS GIVEN TO PT AND AGAIN REVIEWED PROCEDURE FOR WOUND PACKING, PT ABLE TO CORRECTLY DESCRIBE WOUND CARE AND SX TO REPORT. UNDERSTANDS TO CALL DR KILGORE'S OFFICE TO SCHEDULE FOLLOWUP APPT IN THE MORNING. PHARMACY IN TO SEE PT AT THIS TIME. CALL PLACED TO [facility] [phone] FOR [facility]. STATES HE WILL BE RIGHT UP. PT IS UP IN ROOM DRESSED. IN GOOD SPIRITS.SL DC'D INTACT.
--- NOTE | 2018-03-16 19:02 | NUR ---
PT DISCHARGED HOME WITH SON AT THIS TIME.
== END 2018-03-16 19:00 | disposition home or self-care (01) | DRG 330 ==
LOC: ED 17:00 → MS 17:01 → CCU 17:01 → MS 03-10 16:05
PROVIDERS: ADMIT Surgery
PROC: 0DN80ZZ Release Small Intestine, Open Approach (ICD-10-PCS; 2018-03-07)
PROC: 0DBF0ZZ Excision of Right Large Intestine, Open Approach (ICD-10-PCS; principal; 2018-03-07 14:00)
DX: K56.50 Intestinal adhesions [bands], unspecified as to partial versus complete obstruction (principal); N39.0 Urinary tract infection, site not specified; Z98.84 Bariatric surgery status; E03.9 Hypothyroidism, unspecified; I10 Essential (primary) hypertension; H81.09 Meniere's disease, unspecified ear; K91.1 Postgastric surgery syndromes; Z87.891 Personal history of nicotine dependence; Z90.722 Acquired absence of ovaries, bilateral; R10.13 Epigastric pain
CPT/HCPCS: 36415; 71045; 74018; 74177; 80048; 80053; 82247; 82465; 83605; 83615; 83690; 83735; 84100; 84478; 84550; 85025; 87493; 88307; 93005; 93010; 94640; 94660; 94762; 96361; 96374; 96375; 97110; 97116; 97162; 97530; 99285; J0131; J0696; J1100; J1170; J1644; J1885; J2250; J2405; J2550; J2704; J3010; J3475; J3480; J7030; J7060; J7120; Q9967

== ENCOUNTER 2018-11-09 09:18 | Emergency (ER) | payer MEDICARE, OTHER ==
[~2018-11-09] VITALS: Ht 172.7 cm; Wt 105.2 kg
--- OUTSIDE RECORDS SUMMARY | ~2018-11-09 | XMS | Encounter Summary ---
Demographics + + + | Address | [address] | | | [place] [address] | + + + | Home Phone | | + + + | Preferred Language | Unknown | + + + | Marital Status | Single | + + + | Mosque Affiliation | ADV | + + + | Race | White | + + + | Ethnic Group | Not or | + + + Author + + + | Author | [facility] | + + + | Organization | [facility] | + + + | Address | Unknown | + + + | Phone | Unavailable | + + + Support + + +---------+ + | Name | Relationship | Address | Phone | + + +---------+ + | Sree Wells | ECON | Unknown | | + + +---------+ + | Marco Antonio Wells | ECON | Unknown | | + + +---------+ + Care Team Providers + +------+ + | Care Acetylene Plant Operator Name | Role | Phone | + +------+ + | Pedrito Gutierrez MD | PCP | | + +------+ + Reason for Visit Office Visit - E/M Services (Routine) +--------+--------+ + + + + | Status | Reason | Specialty | Diagnoses / | Referred By | Referred To | | | | | Procedures | Contact | Contact | +--------+--------+ + + + + | Closed | | Surgery | | Non-[facility] | [facility] | | | | | | [facility] Dept | MD Chris | | | | | | | [address] | | | | | | | [address] | | | | | | | [place], | | | | | | | [place] | | | | | | | [address] | | | | | | | Phone: | | | | | | | [phone] | | | | | | | Fax: | | | | | | | [phone] | +--------+--------+ + + + + Encounter Details +--------+---------+ + + + | Date | Type | Department | Care Team | Description | +--------+---------+ + + + | 11/10/ | Office | [facility]ive [facility] | Chris Padgett, | Status Post | | 2007 | Visit | [facility] [address] | [address] | Bariatric Surgery; | | | | Mychal Kovacs Mailcode: | [address] | Abdominal Pain, | | | | [facility] | [place], [place] | Other Specified Site | | | | [facility] and He[facility], | [address] | | | | | [facility] floor [place], | [phone] | | | | | [place] [address] | | | | | | [phone] | | | +--------+---------+ + + + Social History + + + +--------+------+ | Tobacco Use | Types | Packs/Day | Years | Date | | | | | Used | | + + + +--------+------+ | Current Every Day | Cigarettes | 1 | 30 | | | Smoker | | | | | + + + +--------+------+ + + | Comments: one pack in five days | + + + + +---------+ + | Alcohol Use | Drinks/Week | oz/Week | Comments | + + +---------+ + | No | | | | + + +---------+ + + + + | Sex Assigned at | Date Recorded | | | | + + + | Not on file | | + + + + + + + | Job Start Date | Occupation | Industry | + + + + | Not on file | Not on file | Not on file | + + + + + + + + | Travel History | Travel Start | Travel End | + + + + + + | No recent travel history available. | + + documented as of this encounter Last Filed Vital Signs + + + + + | Vital Sign | Reading | Time Taken | Comments | + + + + + | Blood Pressure | 107/54 | 11/11/2007 1:27 PM | | | | | PDT | | + + + + + | Pulse | 59 | 11/11/2007 1:27 PM | | | | | PDT | | + + + + + | Temperature | 36.9 C (98.5 F) | 11/11/2007 1:27 PM | | | | | PDT | | + + + + + | Respiratory Rate | 12 | 11/11/2007 1:27 PM | | | | | PDT | | + + + + + | Oxygen Saturation | - | - | | + + + + + | Inhaled Oxygen | - | - | | | Concentration | | | | + + + + + | Weight | 89.5 kg (197 lb 4.8 | 11/11/2007 1:27 PM | | | | oz) | PDT | | + + + + + | Height | - | - | | + + + + + | Body Mass Index | 29.14 | 08/24/2007 1:00 PM | | | | | PDT | | + + + + + documented in this encounter Progress Notes Chris Padgett - 11/12/2007 3:12 PM PDTThis patient is s/p laparascopic gastric bypass many years ago. She continues to have acute bouts of abdominal pain. All strudies have bee n normal. It is possible that she has an internal hernia which we have been unable to diagn ose by any of the usual tests. I have offered to explore her for this pain giving her abnou t a 50% chance that we will find something. She is not sure she wants an operation. We illl follow for now. document ed in this encounter Plan of Treatment Not on filedocumented as of this encounter Visit Diagnoses + + | Diagnosis | + + | Status post bariatric surgery Bariatric surgery status | + + | Abdominal pain, other specified site | + + documented in this encounter"
--- OUTSIDE RECORDS SUMMARY | ~2018-11-09 | XMS | Encounter Summary ---
Demographics + + + | Address | [address] | | | [place] [address] | + + + | Home Phone | | + + + | Preferred Language | Unknown | + + + | Marital Status | | + + + | Christian Affiliation | 1001 | + + + | Race | Unknown | + + + | Ethnic Group | Unknown | + + + Author + + + | Author | [facility] | | | and Jairana | + + + | Organization | [facility] | | | and Jairana | + + + | Address | Unknown | + + + | Phone | Unavailable | + + + Support + + +---------+ + | Name | Relationship | Address | Phone | + + +---------+ + | Adriana Grant | ECON | Unknown | | | Caregiver | | | | + + +---------+ + | Sree Wells | ECON | Unknown | | + + +---------+ + | Marco Antonio Wells | ECON | Unknown | | + + +---------+ + Care Team Providers + +------+ + | Care Critical Care Rn Name | Role | Phone | + +------+ + | Petrona Thapa | PCP | | | MD | | | + +------+ + Reason for Referral Evaluate & Treat (Routine) + + + + + + + | Status | Reason | Specialty | Diagnoses / | Referred By | Referred To | | | | | Procedures | Contact | Contact | + + + + + + + | Authorized | Specialty | Gastroenterol | Diagnoses | | Alisha, | | | Services | ogy | Nausea | Emmy-Tajt | MD Luther | | | Required | | | i, | [address] | | | | | | Petrnoa | [address] | | | | | MD [address] | [address] | | | | | | [address] | [place], | | | | | | [place], | [place] [address] | | | | | | [place] | Phone: | | | | | | [address] | [phone] | | | | | | Phone: | Fax: | | | | | | [phone] | [phone] | | | | | | Fax: | | | | | | | [phone] | | + + + + + + + Reason for Visit + + + | Reason | Comments | + + + | Medication Question | | + + + Encounter Details +--------+ + + + + | Date | Type | Department | Care Team | Description | +--------+ + + + + | 08/13/ | Telephone | [facility] | Alanis, | Medication Question | | 2018 | | MEDICINE [address] [place] [address] | MD Petrona | | | | | [facility] | [address] [place] [address] | | | | | [place] [address] | [place] [address] | | | | | [phone] | [phone] | | | | | | | [...] + +---------+ + | No | 0 | 0.0 | | | | Standard | | | | | drinks or | | | | | | | | | | equivalen | | | | | t | | | + + +---------+ + [...] Description | +--------+---------+ + + + | 11/15/ | Office | Internal Medicine | Alanis, | | | 2019 | Visit | | MD Petrona | | | | | | [address] [place] [address] GABRIEL | | | | | | [place] [address] | | | | | | [phone] | | | | | | | | +--------+---------+ + + + + +--------+ + + | Name | Priori | Associated Diagnoses | Order Schedule | | | ty | | | + +--------+ + + | * [facility] - | Routin | Nausea | Expected: | | AMB Referral | e | | 08/17/2018, Expires: | | | | | 08/18/2019 | + +--------+ + + documented as of this encounter Visit Diagnoses + + | Diagnosis | + + | Nausea - Primary Nausea alone | + + documented in this encounter"
--- OUTSIDE RECORDS SUMMARY | ~2018-11-09 | XMS | Encounter Summary ---
Demographics + + + | Address | [address] | | | [place] [address] | + + + | Home Phone | | + + + | Preferred Language | Unknown | + + + | Marital Status | Single | + + + | Amish Affiliation | ADV | + + + | Race | White | + + + | Ethnic Group | Not or | + + + Author + + + | Author | [facility] | + + + | Organization | [facility] | + + + | Address | [...] Team Providers + +------+ + | Care Installations Inspector Name | Role | Phone | + +------+ + | Pedrito Gutierrez MD | PCP | | + +------+ + Reason for Visit + + + | Reason | Comments | + + + | Lab findings, | | | teaching, guidance, | | | and counseling | | + + + | Falls | | + + + Encounter Details +--------+ + + + + | Date | Type | Department | Care Team | Description | +--------+ + + + + | 08/07/ | Telephone | [facility] | Beto Meeks MD | Lab findings, | | 2008 | | [facility] | [address] | teaching, guidance, | | | | [facility] | [place], [place] | and counseling; | | | | [place] [address] | [address] | Falls | | | | [address] | [phone] | | | | | [facility] | | | | | | [facility] | | | | | | [place], | | | | | | [place] [address] | | | | | | [phone] | | | +--------+ + + + [...]
--- OUTSIDE RECORDS SUMMARY | ~2018-11-09 | XMS | Encounter Summary ---
Demographics + + + | Address | [address] | | | [place] [address] | + + + | Home Phone [...] Author + + + | Author | [facility] | + + + | Organization | [facility] | + + + | Address | [...] Team Providers + +------+ + | Care Ladle Patcher Name | Role | Phone | + +------+ + | Maria Esther Cintron MD | PCP | Unavailable | + +------+ + Encounter Details +--------+ + + + + | Date | Type | Department | Care Team | Description | +--------+ + + + + | 04/19/ | Telephone | [facility] | Chris Padgett, | | | 2007 | | [place] [address] | [address] | | | | | [address] Mailcode: | [address] | | | | | [address] | [place], [place] | | | | | Health and Healing, | [address] | | | | | 6th floor [place], | [phone] | | | | | [place] [address] | | | | | | [phone] | | | +--------+ + + + [...]
--- OUTSIDE RECORDS SUMMARY | ~2018-11-09 | XMS | Encounter Summary ---
Demographics + + + | Address | [address] | | | [place] [address] | + + + | Home Phone | | + + + | Preferred Language | Unknown | + + + | Marital Status | Single | + + + | Religion Affiliation | ADV | + + + | Race | White | + + + | Ethnic Group | Not or | + + + Author + + + | Author | [facility] | + + + | Organization | [facility] | + + + | Address | [...] Team Providers + +------+ + | Care Thread Dresser Name | Role | Phone | + +------+ + | Pedrito Gutierrez MD | PCP | | + +------+ + Encounter Details +--------+---------+ + + + | Date | Type | Department | Care Team | Description | +--------+---------+ + + + | 05/27/ | Office | [facility] | Beto Meeks MD | Hypothyroidism | | 2006 | Visit | [facility] | [address] | (Primary Dx) | | | | [facility] | [place], [place] | | | | | [place] [address] | [address] | | | | | [address] | [phone] | | | | | [facility] | | | | | | [facility] | | | | | | [place], | | | | | | [place] [address] | | | | | | [phone] | | | +--------+---------+ + + + [...] + + + | Blood Pressure | 121/64 | 05/27/2007 3:07 PM | | | | | PST | | + + + + + | Pulse | 87 | 05/27/2007 3:07 PM | | | | | PST | | + + + + + | Temperature | 39.5 C (103.1 F) | 05/27/2007 3:07 PM | | | | | PST | [...] + + + + | Weight | 91.4 kg (201 lb 6.4 | 05/27/2007 3:07 PM | | | | oz) | PST | | + + + + + | Height | 175.3 cm (5' 9") | 05/27/2007 3:07 PM | | | | | PST | | + + + + + | Body Mass Index | 29.74 | 05/27/2007 3:07 PM | | | | | PST | | + + + + + documented in this encounter Progress Notes Beto Meeks - 05/27/2007 4:03 PM PST Component Reference Range 02/23/2007 VITAMIN D 25 HYDROXY 20-57 ng/mL 51 TSH 0.28-5.00 uIU/ml 1.70 documented in this encounter Plan of Treatment Not on filedocumented as of this encounter Visit Diagnoses + + | Diagnosis | + + | Hypothyroidism - Primary Unspecified hypothyroidism | + + documented in this encounter
--- OUTSIDE RECORDS SUMMARY | ~2018-11-09 | XMS | Encounter Summary ---
Demographics + + + | Address | [address] | | | [place] [address] | + + + | Home Phone [...] Author + + + | Author | [facility] | + + + | Organization | [facility] | + + + | [...] Team Providers + +------+ + | Care Motor Equipment Lieutenant Name | Role | Phone | + +------+ + | Pedrito Gutierrez MD | PCP | | + +------+ + Reason for Visit AUTH/CERT +--------+--------+ + + + + | Status | Reason | Specialty | Diagnoses / | Referred By | Referred To | | | | | Procedures | Contact | Contact | +--------+--------+ + + + + | Closed | | | | | [facility] | | | | | | | Proc Unit | | | | | | | [address] | | | | | | | [address] [facility] | | | | | | | [facility] | | | | [facility] | | | | | | | [facility] | | | | | | | [place], [place] | | | | | | | [address] Phone: | | | | | | | [phone] | | | | | | | Fax: | | | | | | | [phone] | +--------+--------+ + + + + Encounter Details +--------+ + + + + | Date | Type | Department | Care Team | Description | +--------+ + + + + | 09/14/ | Hospital | [facility] | Olivia, | | | 2008 | Encounter | [address] | MD Pedrito | | | | | [facility] | | | | | | [facility] | | | | | | HEALING [place], | | | | | | [place] [address] | | | | | | [phone] | | | +--------+ + + + [...] + + + | Blood Pressure | 117/71 | 09/14/2008 8:58 AM | | | | | PDT | | + + + + + | Pulse | 92 | 09/14/2008 8:58 AM | | | | | PDT | | + + + + + | Temperature | 35.7 C (96.3 F) | 09/14/2008 8:32 AM | | | | | PDT | | + + + + + | Respiratory Rate | 16 | 09/14/2008 8:58 AM | | | | | PDT | | + + + + + | Oxygen Saturation | - | - | | + + + + + | Inhaled Oxygen | - | - | | | Concentration | | | | + + + + + | Weight | 88.9 kg (196 lb) | 09/14/2008 7:37 AM | | | | | PDT | | + + + + + | Height | 175.3 cm (5' 9") | 09/14/2008 7:37 AM | | | | | PDT | | + + + + + | Body Mass Index | 28.94 | 09/14/2008 7:37 AM | | | | | PDT | | + + + + + documented in this encounter Discharge Summaries Vilma Gibbons - 09/14/2008 9:07 AM PDT documented in this encounter Discharge Instructions Marleen Barbosa - 09/14/2008 [facility] Endoscopy [address] [address] Toll Free ext: [phone] Home Care Instructions after EGD (Upper Endoscopy) Medications You have received sedation medications. These medications can cause you to be forgetful and drowsy and will take the remainder of the day to wear off. DO NOT drink alcohol, drive, ope rate heavy machinery, sign legal documents, or make major decisions until tomorrow. Common After Effects Mild abdominal pain, bloating, and gas. Sore throat. You may treat it with throat lozenges and/or gargle with warm salt water. You may bruise at your IV site. If you have pain, redness, or swelling at your IV site, halina ly a warm compress. Diet You may resume eating, but start with small meals of soft foods and liquids. Scrambled eggs and mashed potatoes are good examples. If you tolerate small, soft meals, then you may res ume your usual diet. Activity With the exception of driving and operating heavy machinery, you may resume your usual leve l of activity. Complications Call your GI doctor if you have: Abnormal pain or any new unexplained symptoms. Shortness of breath, chest or neck pain. Vomiting blood or rectal bleeding. Fever above 101.5 Redness, pain, or swelling at your IV site that is not relieved with warm compress. For any questions related to your procedure, call: Thursday- Thursday 8:00- 4:30 Endoscopy After business hours, or on weekends and holidays [facility] and have the GI doctor puff ironer paged. The provider who performed your procedure is: Dr. Pedrito Baker Findings: Normal exam. Follow up Appointments with: Your referring provider Your primary care provider or referring provider will receive copies of the procedure repor t. documented in this encounter Medications at Time of Discharge + + + +---------+--------+ + | Medication | Sig | Dispensed | Refills | Start | End Date | | | | | | Date | | + + + +---------+--------+ + | CALCIUM 600 WITH | 1000 mg tab 4 x | | 0 | | | | VITAMIN D OR | daily | | | | | + + + +---------+--------+ + | Cyanocobalamin | 1 inj q month | | 0 | | | | 1,000 mcg/mL | | | | | | | Injection Syringe | | | | | | + + + +---------+--------+ + | methocarbamol 750 | Take 1 tablet by | | 0 | | | | mg Oral Tablet | mouth three times | | | | | | | daily. | | | | | + + + +---------+--------+ + | Multivitamin Oral | 1 tab by mouth twice | | 0 | | | | Tablet | daily | | | | | + + + +---------+--------+ + | POTASSIUM CHLORIDE | take 3 tablet | | 0 | | | | SR 20 MEQ TAB, | (20meq) by oral | | | | | | PARTICLES/CRYSTALS | route twice daily | | | | | | | with food | | | | | + + + +---------+--------+ + documented as of this encounter Progress Notes Pedrito Baker MD - 09/14/2008 8:14 AM PDT PROCEDURE NOTE: Subjective: Belinda Meehan is a 48 y.o. female MR# [id number] presents today for an EG D to evaluate abdominal pain following gastric bypass obesity surgery. PARQ held and all que stions addressed. Objective: Vital Signs: Blood pressure 117/74, pulse 92, temperature 37.1 C (98.8 F), resp. rate 1 6, height 1.753 m (5' 9"), weight 88.905 kg (196 lb). Neuro: patient is Patient oriented X3. Mental status clear and intact Mallampati Score: II Neck negative Respiratory Lungs clear to auscultation bilaterally with good air exchange Cardiac Regular Rate and Rhythm. Abdomen: soft, normal active bowel sounds, nontender, no masses, no organomegaly Medications: Meds reviewed Allergies: Allergies as of 09/12/2008 - reviewed 08/28/2008 Allergen Reaction Noted Keflex (cephalexin) 01/22/2006 Sulfa (sulfonamides) 01/22/2006 Codeine 01/22/2006 Penicillins 01/22/2006 Clindamycin 01/22/2006 Cipro (ciprofloxacin) 01/22/2006 Tramadol 01/22/2006 Morphine Clarithromycin Hives 06/28/2007 Ombjmqv-vzwvzxzbrt-lyj-caff 08/28/2008 See procedure note 09/14/2008 documented in this encounter Plan of Treatment Not on filedocumented as of this encounter Visit Diagnoses Not on filedocumented in this encounter Administered Medications + +--------+ +---------+------+------+ | Medication Order | MAR | Action | Dose | Rate | Site | | | Action | Date | | | | + +--------+ +---------+------+------+ | fentanyl (aka SUBLIMAZE) | Given | 09/15/19 | 100 mcg | | | | injection 1 dose, Starting Ginna | | 09 8:15 | | | | | 09/14/08 at 0804, Until Ginna 09/14/08 | | AM PDT | | | | | at 0824 | | | | | | + +--------+ +---------+------+------+ +---+---+ | | | +---+---+ + +-------+ +------+---+---+ | midazolam (aka VERSED) | Given | 09/15/19 | 4 mg | | | | injection 1 dose, Starting Ginna | | 09 8:15 | | | | | 09/14/08 at 0805, Until Ginna 09/14/08 | | AM PDT | | | | | at 0825 | | | | | | + +-------+ +------+---+---+ +---+---+ | | | +---+---+ documented in this encounter
--- OUTSIDE RECORDS SUMMARY | ~2018-11-09 | XMS | Encounter Summary ---
Demographics + + + | Address | [address] | | | [place] [address] | + + + | Home Phone | | + + + | Preferred Language | Unknown | + + + | Marital Status | Single | + + + | Restoration Affiliation | ADV | + + + | Race | White | + + + | Ethnic Group | Not or | + + + Author + + + | Author | [facility] | + + + | Organization | [facility] | + + + | Address [...] Team Providers + +------+ + | Care Welding Process Specialist Name | Role | Phone | [...] + + + | Closed | | Pain | Diagnoses | Mirjemal, | Alin, | | | | Management | LBP (low | NIHARIKA Jean | Lukasz Rhodes, PhD | | | | | back pain) | [address] | | | | | DJD | [address] | [address] | | | | | (degenerativ | [place], [place] | [place] | | | | | e joint | [address] | [address] | | | | | disease) of | | Phone: | | | | | knee Knee | | [phone] | | | | | pain Major | | Fax: | | | | | depressive | | [phone] | | | | | disorder, | | | | | | | recurrent | | | | | | | episode, | | | | | | | moderate | | | | | | | (HCC) | | | | | | | Adjustment | | | | | | | disorder | | | | | | | with anxiety | | | | | | | | | | | | | | Spondylosis | | | | | | | with | | | | | | | myelopathy, | | | | | | | lumbar | | | | | | | region | | | | | | | Migraine | | | | | | | headache | | | | | | | Herniated | | | | | | | lumbar | | | | | | | intervertebr | | | | | | | al disc | | | | | | | Procedures | | | | | | | CONSULT TO | | | | | | | PAIN CENTER | | | +--------+--------+ + + + + Encounter Details +--------+ + + + + | Date | Type | Department | Care Team | Description | +--------+ + + + + | 04/20/ | Paramedic Rn | [facility] Comprehensive | Miranda Lambert, | LBP (Low Back Pain); | | 2006 | | [facility] at | ANP | DJD (Degenerative | | | | [facility] | | [facility] Disease) of | | | | [address] | | Knee; Bilateral Knee | | | | Mail Code: CH15P | | Pain; Major | | | | [facility] | | Depressive Disorder, | | | | and Healing, | | Recurrent Episode, | | | | Floor [place], [place] | | Moderate (HCC); | | | | [address] | | Adjustment Disorder | | | | [phone] | | with Anxiety; | | | | | | Spondylosis with | | | | | | Myelopathy, Lumbar | | | | | | Region; Migraine | | | | | | Headache; Herniated | | | | | | Lumbar | | | | | | Intervertebral Disc | | | | | | L4-5 | +--------+ + + + + Social [...] back pain) Lumbago | + + | DJD (degenerative joint disease) of knee Osteoarthrosis, unspecified whether | | generalized or localized, lower leg | + + | Bilateral Knee Pain Pain in joint, lower leg | + + | Major depressive disorder, recurrent episode, moderate (HCC) Major depressive | | disorder, recurrent episode, moderate | + + | Adjustment disorder with anxiety | + + | Spondylosis with myelopathy, lumbar region | + + | Migraine headache Migraine, unspecified, without mention of intractable migraine | | without mention of status migrainosus | + + | Herniated Lumbar Intervertebral Disc L4-5 Displacement of lumbar intervertebral disc | | without myelopathy | + + documented in this encounter"
--- OUTSIDE RECORDS SUMMARY | ~2018-11-09 | XMS | Encounter Summary ---
Demographics + + + | Address | [address] | | | [place] [address] | + + + | Home Phone | | + + + | Preferred Language | Unknown | + + + | Marital Status | Single | + + + | Jewish Affiliation | ADV | + + + | Race | White | + + + | Ethnic Group | Not or | + + + Author + + + | Author | [facility] | + + + | Organization | [facility] | + + + | Address [...] Team Providers + +------+ + | Care Vehicle Fuel Systems Converter Name | Role | Phone | + +------+ + | Pedrito Gutierrez MD | PCP | | + +------+ + Reason for Visit + + + | Reason | Comments | + + + | Refill Request | SUCRALFATE | + + + Encounter Details +--------+--------+ + + + | Date | Type | Department | Care Team | Description | +--------+--------+ + + + | 10/18/ | Refill | [facility] | Chris Padgett, | Refill Request | | 2009 | | Center [address] | [address] | (SUCRALFATE) | | | | [address] Mailcode: | [facility] | | | | | [address] for | [place], [place] | | | | | Health and Healing, | [address] | | | | | [address] [facility], | [phone] | | | | | [place] [address] | | | | | | [phone] | | | +--------+--------+ + + + [...]
--- OUTSIDE RECORDS SUMMARY | ~2018-11-09 | XMS | Encounter Summary ---
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 [address] | Bandar Stroud MD | | | | | Procedures | [address] | [address] | | | | | CONSULT TO | MALIK | [address] | | | | | SURGERY - | [place], [place] | [address], | | | | | GENERAL | [address] | [place] | | | | | | | [address] | | | | | | | Phone: | | | | | | | [phone] | | | | | | | Fax: | | | | | | | [phone] | +--------+--------+ + + + + Encounter Details +--------+ + + + + | Date | Type | Department | Care Team | Description | +--------+ + + + + | 08/31/ | Safety Advisor | [facility] | Nuris Cardenas NP | Hemorrhoid (Primary | | 2008 | | Center [address] | [address] | Dx) | | | | [facility] | [place] [address] | | | | | Mailcode: [id number] | | | | | | Physicians [address] | | | | | | [place], [place] | | | | | | [address] | | | | | | [phone] | | | +--------+ + + + [...] + | Diagnosis | + + | Hemorrhoid - Primary Unspecified hemorrhoids without mention of complication | + + documented in this encounter"
--- OUTSIDE RECORDS SUMMARY | ~2018-11-09 | XMS | Encounter Summary ---
Demographics + + + | Address | [address] | | | [place] [address] | + + + | Home Phone | | + + + | Preferred Language | Unknown | + + + | Marital Status | Single | + + + | Mormonism Affiliation | ADV | + + + | Race | White | + + + | Ethnic Group | Not or | + + + Author + + + | Author | [facility] | + + + | Organization | [facility] | + + + | [...] Providers + +------+ + | Care Health Screener Name | Role | Phone | + +------+ + | Sulaiman Carrera MD | PCP | Unavailable | + +------+ + Encounter Details +--------+ + + + + | Date | Type | Department | Care Team | Description | +--------+ + + + + | 10/05/ | Ancillary | Registration [address] | Ramon Ibarra, | | | 2006 | Registratio | Sara Hartley | [address] [facility] | | | | n | [facility] Mailcode: | [facility] [place] | | | | | [address] [place], [place] | [address] | | | | | [address] | [phone] | | | | | [phone] | | | +--------+ + + + [...]
--- OUTSIDE RECORDS SUMMARY | ~2018-11-09 | XMS | Encounter Summary ---
Demographics + + + | Address | [address] | | | [place] [address] | + + + | Home Phone [...] Author + + + | Author | [facility] | + + + | Organization | [facility] | + + + | [...] Providers + +------+ + | Care Pipe Smoking Machine Offbearer Name | Role | Phone | + [...] Description | +--------+--------+ + + + | 06/08/ | Refill | [facility] | Miracle, Miranda, | Refill Request | | 2006 | | Center Outpatient | ANP | | | | | Therapy Center [address] | [address] | | | | | | Outpatient Therapy | | | | | | Center 2nd floor | | | | | | Mailcode: [id number] | | | | | | [place], [place] | | | | | | [address] | | | | | | [phone] | | | +--------+--------+ + + + [...]
--- OUTSIDE RECORDS SUMMARY | ~2018-11-09 | XMS | Encounter Summary ---
Demographics + + + | Address | [address] | | | [place] [address] | + + + | Home Phone | | + + + | Preferred Language | Unknown | + + + | Marital Status | Single | + + + | Episcopalian Affiliation | ADV | + + + [...] Team Providers + +------+ + | Care Preliminary School Psychologist Name | Role | Phone | + +------+ + PCP | Unavailable | + +------+ + Encounter Details +--------+ + + + + | Date | Type | Department | Care Team | Description | +--------+ + + + + | 04/03/ | Office | | Report, Outpatient | Progress Note | | 2004 | Visit-Trans | | Consultation | | | | cribed | | [...] as of this encounter Progress Notes Interface, Workforce Development Assistant In - 01/11/2005 7:39 PM PDT Referred From and Faxed To: General Surgery Referred To: Outpatient [facility] Consulting Physician: Svetlana Maki R.D., L.D. Consultation Date: 09/14/2003 Reason for Requested Consultation: Diet consultation prior to having gastric bypass and gallbladder removal. Documented Time of Visit: 12:50 until 2:00. Length of Visit: 70 minutes of face to face consultation with patient. Subjective: The patient attended public information meeting April 2003. Surgery date is pending. The patient states no food allergies, no food intolerance, no lactose intolerance and does currently take dairy foods in. She states since the public information session in April, she has discontinued eating red meats, enjoys eating vegetarian foods and has reduced the amount of Pepsi from 12 cans a day to one can per day, also trying to quit smoking. Currently, she is down to two cigarettes per day. Objective: 43-year-old female. Height is 5'10 , weight in April was 332.8 lb. For past medical history, medications, and supplements, please see history and physical note of May 13, 2003. Consultation Findings: The patient has made some very good dietary changes since April, trying to get ready for the surgery. She has reduced her regular soda per day, reduced her cigarette smoking and has tried to make some healthful dietary changes by reducing the amount of saturated fat in her diet. I congratulated her on these very excellent changes. She also feels that she has lost perhaps 20 lb since April. We cannot document this because my office scale only goes to 300 lb. Post Surgery Diet Education: 1. Provided visual, verbal, and written information on diet progression following bariatric surgery and gallbladder removal. Emphasized and highlighted need for protein, fluid intake, very small portions 5-6 times a day. 2. Discussed weight loss plateaus, food journal, lifelong dietary changes. 3. Discussed importance of physical activity, minimum of 200 minutes a week to maintain weight loss. 4. Behavior changes: Chew food well, eat small portions recommended to minimize stomach discomfort, start practicing before surgery. 5. Post surgery nutrition supplements discussed including chewable multivitamin and mineral supplement, calcium supplement, and vitamin B12. Patient Understanding: The patient is receptive and interactive. She understands the changes in food intake after surgery. Expected Outcome: I think patient will do moderately well if able to maintain diet progression and commits to lifelong dietary and physical activity suggestions discussed today. Recommendations: The patient's goal is to lose weight. 1. Read material, follow diet progression. 2. Practice behavior changes, slow down eating before surgery. 3. Exercise after surgery when approved by Joanna 4. Follow-up with R.DYudy as needed post surgery, recommend between 3-6 months time. She is coming from [place] so this can be scheduled on the same day of her physician visit. General surgery can schedule this. 5. Indra's business card with contact information for questions. Svetlana Maki R.D., LKyrie. SR/y39 P [phone] cc: documente d in this encounter Plan of Treatment Not on filedocumented as of this encounter Visit Diagnoses Not on filedocumented in this encounter"
--- OUTSIDE RECORDS SUMMARY | ~2018-11-09 | XMS | Encounter Summary ---
Demographics + + + | Address | [address] | | | [place] [address] | + + + | Home Phone | | + + + | Preferred Language | Unknown | + + + | Marital Status | Single | + + + | Yazidi Affiliation | ADV | + + + [...] Team Providers + +------+ + | Care Security Screener Name | Role | Phone | [...]
--- OUTSIDE RECORDS SUMMARY | ~2018-11-09 | XMS | Encounter Summary ---
Demographics + + + | Address | [address] | | | [place] [address] | + + + | Home Phone [...] Author + + + | Author | [facility] | + + + | Organization | [facility] | + + + | [...] Team Providers + +------+ + | Care Barrel Roller Operator Name | Role | Phone | + +------+ + PCP | Unavailable | + +------+ + Encounter Details +--------+ + + + + | Date | Type | Department | Care Team | Description | +--------+ + + + + | 07/04/ | Office | Endocrinology, | Beto Meeks MD | | | 2005 | Visit-ECX | Diabetes and | [address] | | | | | Clinical Nutrition | [place], [place] | | | | | [address] | [address] | | | | | [facility] | [phone] | | | | | Mailcode: OPC5 | | | | | | Outpatient Clinic | | | | | | [facility] | | | | | | [facility] | | | | | | [phone] | | | +--------+ + + + [...] + + + | Blood Pressure | 110/78 | 07/03/2005 1:00 PM | | | | | PST | | + + + + + | Pulse | 72 | 07/03/2005 1:00 PM | | | | | PST [...] + + + + | Weight | 159.3 kg (351 lb 3.1 | 07/03/2005 1:00 PM | | | | oz) | PST | | + + + + + | Height | - | - | | + + + + + | Body Mass Index | - | - | | + + + + + documented in this encounter Plan of Treatment Not on filedocumented as of this encounter Visit Diagnoses Not on filedocumented in this encounter"
--- OUTSIDE RECORDS SUMMARY | ~2018-11-09 | XMS | Encounter Summary ---
Demographics + + + | Address | [address] | | | [place] [address] | + + + | Home Phone [...] Author + + + | Author | [facility] | + + + | Organization | [facility] | + + + | Address [...] Team Providers + +------+ + | Care Curtain Cleaner Name | Role | Phone | + +------+ + | Pedrito Gutierrez MD | PCP | | + +------+ + Reason for Visit +--------+ + | Reason | Comments | +--------+ + | Other | lab results | +--------+ + Encounter Details +--------+ + + + + | Date | Type | Department | Care Team | Description | +--------+ + + + + | 08/14/ | Telephone | Dig[facility]ive Health | Chris Padgett, | Other (lab results) | | 2006 | | Center [address] | [address] | | | | | [address] Mailcode: | [address] | | | | | [facility] [facility] | [place], [place] | | | | | Health and Healing, | [address] | | | | | [address] [place] [address], | [phone] | | | | | [place] [address] | | | | | | [phone] | | | +--------+ + + + [...]
--- OUTSIDE RECORDS SUMMARY | ~2018-11-09 | XMS | Encounter Summary ---
Demographics + + + | Address | [address] | | | [place] [address] | + + + | Home Phone [...] Author + + + | Author | [facility] | + + + | Organization | [facility] | + + + | [...] Team Providers + +------+ + | Care Egg Gatherer Name | Role | Phone | + [...] + + | 11/11/ | Office | [facility] Center at [facility] | Lukasz Charles, | Major Depressive | | 2006 | Visit | 15th Floor [address] | PhD [address] | Disorder, Recurrent | | | | [address] | [address] [place], [place] | Episode, Moderate | | | | Code: [facility] Center | [address] | ([facility] Left Knee | | | | for Health and | [phone] | Pain; Neck Pain; | | | | Healing, 15th Floor | | Spondylosis with | | | | [place], [place] | | Myelopathy, Lumbar | | | | [address] | | Region; Chronic | | | | [phone] | | Abdominal Pain; | | | [...] this encounter Progress Notes Lukasz Charles - 11/11/2006 9:03 AM PDTPROGRESS NOTE: Belinda Meehan is a 46 y.o. female with head, abdominal, back, and leg pain. She has sym ptoms of depression and anxiety along with her pain. She is having her niece visit this kemi worley. We discussed the need to pace herself and to limit activity so she is able to function f or her full visit. We discussed her frustration after being told she is not a candidate for knee replacement because she is too young. We discussed activity and sleep. Ms. Meehan has ongoing depression and frustration. She is not suicidal. She has a good p lucia to pace herself during the upcoming family visits. She has good social support. She se ems to be doing well and she is coping with changes well. She has using good self-care skil ls. Diagnosis: Prescott I: 1. (296.32) Major depressive disorder, recurrent, moderate. 2. (309.24) Adjustment disorder with anxiety. 3. 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 Prescott II: Deferred Prescott III: abdominal pain, migraine headache, low back pain. Prescott IV: low finances Prescott V: GAF 55-60 Plan: Return in 2 weeks. Check niece's visit, pacing, relaxation, activity, distraction. Contin ue cognitive/behavioral therapy. Total time spent with patient was approximately 45 minutes. LUKASZ CHARLES PHD [facility] [address] [facility], [address] [place] [address] documented in this encount er Plan of Treatment + + +--------+ + + | Name | Type | Priori | Associated Diagnoses | Order Schedule | | | | ty | | | + + +--------+ + + | IA PSYCHOTHERPY, | Procedures | Routin | Major Depressive | Ordered: 11/11/2006 | | OFFICE (45-50) | | e | Disorder, Recurrent | | | | | | Episode, Moderate | | | | | | ([facility]) Left Knee | | | | | | Pain Neck Pain | | | | | | Spondylosis with | | | | | | Myelopathy, Lumbar | | | | | | Region Chronic | | | | | | [...] recurrent episode, moderate | + + | Left Knee Pain Pain in joint, lower leg | + + | Neck pain Cervicalgia | + + | Spondylosis with myelopathy, lumbar region | + + | Chronic abdominal pain Abdominal pain, unspecified site | + + | Adjustment disorder with anxiety | + + | Other pain disorders related to psychological factors | + + documented in this encounter"
--- OUTSIDE RECORDS SUMMARY | ~2018-11-09 | XMS | Encounter Summary ---
Demographics + + + | Address | [address] | | | [place] [address] | + + + | Home Phone | | + + + | Preferred Language | Unknown | + + + | Marital Status | Single | + + + | Roman Catholic Affiliation | ADV | + + [...] Team Providers + +------+ + | Care Chef Instructor Name | Role | Phone | [...] as of this encounter Progress Notes Interface, Alarm Signal Operator In - 01/12/2005 12:26 AM PDT [id number] [facility] Date: 07/25/2004 Clinic: Rheumatology [...] weight that she has lost. At the [employer], a study was presented [...] 6 months. Caitlin Rivera M.S., F.N.P. / [id number] / [id number] / [id number] / [id number] cc: Pedrito Gutierrez M.D. [address] [facility] [place] [address] Electronically signed by Caitlin Rivera 07-31-2004 12:02:37 PM documented i n this encounter Plan of Treatment Not on filedocumented as of this encounter Visit Diagnoses Not on filedocumented in this encounter"
--- OUTSIDE RECORDS SUMMARY | ~2018-11-09 | XMS | Encounter Summary ---
Demographics + + + | Address | [address] | | | [place] [address] | + + + | Home Phone | | + + + | Preferred Language | Unknown | + + + | Marital Status | Single | + + + | Episcopal Affiliation | ADV | + + + | Race | White | + + + | Ethnic Group | Not or | + + + Author + + + | Author | [facility] | + + + | Organization | [facility] | + + + | Address [...] Team Providers + +------+ + | Care Metal Patternmaker Apprentice Name | Role | Phone | + +------+ + | Pedrito Gutierrez MD | PCP | | + +------+ + Reason for Visit + + + | Reason | Comments | + + + | Osteopenia | | + + + Encounter Details +--------+ + + + + | Date | Type | Department | Care Team | Description | +--------+ + + + + | 06/25/ | Telephone | [facility] | Chris Padgett, | Osteopenia | | 2006 | | Center [address] | [address] | | | | | [address] Mailcode: | [address] | | | | | [facility] | [place], [place] | | | | | Health and Healing, | [address] | | | | | 6th floor [place], | [phone] | | | | | [place] [address] | | | | | | [phone] | | | +--------+ + + + [...]
--- OUTSIDE RECORDS SUMMARY | ~2018-11-09 | XMS | Encounter Summary ---
Demographics + + + | Address | [address] | | | [place] [address] | + + + | Home Phone | | + + + | Preferred Language | Unknown | + + + | Marital Status | | + + + | Gnosticism Affiliation | 1001 | + + + | Race | Unknown | + + + | Ethnic Group | Unknown | + + + Author + + + | Author | [facility] | | | and Jairana | + + + | Organization | [facility] | | | and Jairana | [...] Team Providers + +------+ + | Care Grinder Hardboard Name | Role | Phone | + +------+ + | Petrona Thapa | PCP | | | MD | | | + +------+ + Reason for Visit + + + | Reason | Comments | + + + | Appointment | | + + + Encounter Details +--------+ + + + + | Date | Type | Department | Care Team | Description | +--------+ + + + + | 09/13/ | Telephone | [facility] | Alanis, | Appointment | | 2019 | | MEDICINE [address] [place] [address] | MD Petrona | | | | | [facility] | [address] [place] [address] | | | | | [place] [address] | [place] [address] | | | | | [phone] | [phone] | | | | | | | [...] Internal Medicine | Alanis, | | | 2018 | Visit | | MD Petrona | | | | | | [facility] [address] | | | | | | [place] [address] | | | | | | [phone] | | | | | | | | +--------+---------+ + + + documented as of this encounter Visit Diagnoses Not on filedocumented in this encounter"
--- OUTSIDE RECORDS SUMMARY | ~2018-11-09 | XMS | Encounter Summary ---
Demographics + + + | Address | [address] | | | [place] [address] | + + + | Home Phone | | + + + | Preferred Language | Unknown | + + + | Marital Status | Single | + + + | Adventism Affiliation | ADV | + + + [...] Team Providers + +------+ + | Care Geoint Analyst Name | Role | Phone | + +------+ + | Sulaiman Carerra MD | PCP | Unavailable | + +------+ + Encounter Details +--------+ + + + + | Date | Type | Department | Care Team | Description | +--------+ + + + + | 09/10/ | Ancillary | Registration [id number] | Beto Meeks MD | | | 2005 | Registratio | [address] | [address] | | | | n | [facility] Mailcode: | [place], [place] | | | | | [address] [place], [place] | [address] | | | | | [address] | [phone] | | | | | [phone] | | | +--------+ + + + [...] + | VITAMIN D, | Routin | 09/10/2004 | | Results for this | | 25-HYDROXY, SERUM | e | 3:48 PM | | procedure are in the | | | | PST | | results section. | + +--------+ + + + | COMPLETE METABOLIC | Routin | 09/10/2004 | | Results for this | | SET | e | 3:48 PM | | procedure are in the | | (NA,K,CL,CO2,BUN,CRE | | PST | | results section. | | AT,GLUC,CA,AST,ALT,B | | | | | | DEYA TOTAL,ALK | | | | | | PHOS,ALB,PROT TOTAL) | | | | | + +--------+ + + + | CBC ONLY | Routin | 09/10/2004 | | Results for this | | | e | 3:48 PM | | procedure are in the | | | | PST | | results section. | + +--------+ + + + | MAGNESIUM, PLASMA | Routin | 09/10/2004 | | Results for this | | | e | 3:48 PM | | procedure are in the | | | | PST | | results section. | + +--------+ + + + documented in this encounter Results VITAMIN D, 25-HYDROXY (09/10/2004 3:48 PM PST) + +--------+ + + + | Component | Value | Ref Range | Performed | Pathologist | | | | | At | Signature | + +--------+ + + + | VITAMIN D | 77 (H) | 10 - 68 ng/mL | | | | 25 HYDROXY | | | | | + +--------+ + + + + + | Specimen | + + | | + + + + + + + | Performing | Address | City/State/Zipcode | Phone Number | | Organization | | | | + + + + + | [facility] | [address] | [place] [address] | | | LABORATORY | | | | + + + + + CBC ONLY WITH PLATELET (09/10/2004 3:48 PM PST) + + + + + + | Component | Value | Ref Range | Performed | Pathologist | | | | | At | Signature | + + + + + + | WHITE CELL | 9.9 | 4.4 - 11.0 K/cu | [facility] | | | COUNT | | mm | DEPARTMENT | | | | | | OF | | | | | | PATHOLOGY | | + + + + + + | RED CELL | 4.97 | 3.65 - 5.10 | [facility] | | | COUNT | | M/cu mm | DEPARTMENT | | | | | | OF | | | | | | PATHOLOGY | | + + + + + + | HEMOGLOBIN | 15.5 (H) | 11.4 - 15.0 | [facility] | | | | | g/dL | DEPARTMENT | | | | | | OF | | | | | | PATHOLOGY | | + + + + + + | HEMATOCRIT | 44.9 (H) | 33.0 - 44.6 % | [facility] | | | | | | DEPARTMENT | | | | | | OF | | | | | | PATHOLOGY | | + + + + + + | MCV | 90.3 | 80.0 - 96.0 fL | [facility] [...] + + + + | PLATELET | 271 | 150 - 400 K/cu | [facility] [...] | + + + + + | [facility] DEPARTMENT OF | [address] [facility] | [place] [address] | | | PATHOLOGY | [address] | | | + + + + + | [facility] DEPARTMENT OF | [address] [facility] | [place] [address] | | | PATHOLOGY | [address] | | | + + + + + COMP METABOLIC SET (09/10/2004 3:48 PM PST) + +---------+ + + + | Component | Value | Ref Range | Performed | Pathologist | | | | | At | Signature | + +---------+ + + + | GLUCOSE, | 92 | 65 - 110 mg/dL | [facility] | | | PLASMA | | | DEPARTMENT | | | (LAB) | | | OF | | | | | | PATHOLOGY | | + +---------+ + + + | BUN, PLASMA | 16 | 6 - 20 mg/dL | [facility] [...] +---------+ + + + | TOTAL | 7.4 | 6.1 - 7.9 g/dL | [facility] | | | PROTEIN, | | | DEPARTMENT | | | PLASMA | | | OF | | | (LAB) | | | PATHOLOGY | | + +---------+ + + + | ALBUMIN, | 4.3 | 3.5 - 4.7 g/dL | [facility] | | | PLASMA | | | DEPARTMENT | | | (LAB) | | | OF | | | | | | PATHOLOGY | | + +---------+ + + + | CALCIUM, | 10.0 | 8.5 - 10.5 | [facility] | [...] + + + | ALK PHOS | 105 (H) | 42 - 98 U/L | [facility] | | | | | | DEPARTMENT | | | | | | OF | | | | | | PATHOLOGY | | + +---------+ + + + | AST(SGOT) | 33 | 15 - 41 U/L | [facility] | | | | | | DEPARTMENT | | | | | | OF | | | | | | PATHOLOGY | | + +---------+ + + + | SODIUM, | 140 | 136 - 145 | [facility] | | | PLASMA | | mmol/L | DEPARTMENT | | | (LAB) | | | OF | | | | | | PATHOLOGY | | + +---------+ + + + | POTASSIUM, | 3.8 | 3.5 - 5.1 | [facility] | | | PLASMA | | mmol/L | DEPARTMENT | | | (LAB) | | | OF | | | | | | PATHOLOGY | | + +---------+ + + + | CHLORIDE, | 106 | 98 - 107 mmol/L | [facility] [...] + + + | ALT (SGPT) | 61 (H) | 13 - 48 U/L | [facility] [...] | + + + + + | [facility] DEPARTMENT OF | [address] | [place] [address] | | | PATHOLOGY | [address] | | | + + + + + | [facility] DEPARTMENT OF | [address] | [place] [address] | | | PATHOLOGY | [address] | | | + + + + + MAGNESIUM, PLASMA (09/10/2004 3:48 PM PST) + +---------+ + + + | Component | Value | Ref Range | Performed | Pathologist | | | | | At | Signature | + +---------+ + + + | MAGNESIUM,P | 2.6 (H) | 1.8 - 2.5 mg/dL | [facility] [...] | + + + + + | [facility][1] | [address] | [place] [address] | | | PATHOLOGY | [address] | | | + + + + + | [facility][1] | [address] | [place] [address] | | | PATHOLOGY | [address] | | | + + + + + documented in this encounter Visit Diagnoses Not on filedocumented in this encounter"
--- OUTSIDE RECORDS SUMMARY | ~2018-11-09 | XMS | Encounter Summary ---
Demographics + + + | Address | [address] | | | [place] [address] | + + + | Home Phone [...] Author + + + | Author | [facility] | + + + | Organization | [facility] | + + + | Address | Unknown | + + + | Phone | Unavailable | + + + Support + + +---------+ + | Name | Relationship | Address | Phone | + + +---------+ + | Sere Wells | ECON | Unknown | | + + +---------+ + | Marco Antonio Wells | ECON | Unknown | | + + +---------+ + Care Team Providers + +------+ + | Care Dial Buffer Name | Role | Phone | + +------+ + | Pedrito Gutierrez MD | PCP | | + +------+ + Reason for Visit + + + | Reason | Comments | + + + | Discussion | | + + + Encounter Details +--------+ + + + + | Date | Type | Department | Care Team | Description | +--------+ + + + + | 10/22/ | Telephone | Neurology at | CesarTaniya, | Discussion | | 2007 | | [facility] & | | | | | | Healing [address] | | | | | | [address] Mail Code: | | | | | | [address] [facility] | | | | | | Health and Healing, | | | | | | 8th floor [place], | | | | | | [place] [address] | | | | | | [phone] | | | +--------+ + + + [...]
--- OUTSIDE RECORDS SUMMARY | ~2018-11-09 | XMS | Encounter Summary ---
Demographics + + + | Address | [address] | | | [place] [address] | + + + | Home Phone [...] Author + + + | Author | [facility] | + + + | Organization | [facility] | + + + | Address [...] Team Providers + +------+ + | Care Value Stream Coach Name | Role | Phone | [...] | +--------+ + + + + | 08/12/ | Telephone | [facility] | Chris Padgett, | Lab findings, | | 2006 | | Center [address] | [address] | teaching, guidance, | | | | [address] Mailcode: | [address] | and counseling | | | | [facility] | [place], [place] | | | | | Health and Healing, | [address] | | | | | 6th floor [place], | [phone] | | | | | [place] [address] | | | | | | [phone] | | | +--------+ + + + [...]
--- OUTSIDE RECORDS SUMMARY | ~2018-11-09 | XMS | Encounter Summary ---
Demographics + + + | Address | [address] | | | [place] [address] | + + + | Home Phone | | + + + | Preferred Language | Unknown | + + + | Marital Status | | + + + | Denominational Affiliation | 1001 | + + + | Race | Unknown | + + + | Ethnic Group | Unknown | + + + Author + + + | Author | [facility] | | | and Jairana | + + + | Organization | [facility] | | | and Jairana | [...] Team Providers + +------+ + | Care Registrar Assistant Name | Role | Phone | + [...] Required | | | i, | [address] | | | | | osteoporosis | Sulaiman-Iv[address]ny | Cece Zhao, | | | | | without | , MD [address] | [place] [address] | | | | | current | [address] | Phone: | | | | | pathological | [place], | [phone] | | | | | fracture | [place] | Fax: | | | | | | [address] | [phone] | | | | | | Phone: | | | | | | | [phone] | | | | | | | Fax: | | | | | | | [phone] | | +--------+ + + + + + Service/Procedure (Routine) +--------+ + + + + [...] Required | | | i, | [address] | | | | | osteoporosis | Sulaiman-Iv[address]ny | Cece Zhao, | | | | | without | , MD [address] | [place] [address] | | | | | current | [address] | Phone: | | | | | pathological | [place], | [phone] | | | | | fracture | [place] | Fax: | | | | | | [address] | [phone] | | | | | | Phone: | | | | | | | [phone] | | | | | | | Fax: | | | | | | | [phone] | | +--------+ + + + + + Reason for Visit Service/Procedure (Routine) +--------+ [...] Required | | | i, | [address] | | | | | osteoporosis | Sulaiman-Russell | Cece Zhao, | | | | | without | , [address] | [place] [address] | | | | | current | [address] | Phone: | | | | | pathological | [place], | [phone] | | | | | fracture | [place] | Fax: | | | | | | [address] | [phone] | | | | | | Phone: | | | | | | | [phone] | | | | | | | Fax: | | | | | | | [phone] | | +--------+ + + + + + Encounter Details +--------+ + + + + | Date | Type | Department | Care Team | Description | +--------+ + + + + | 10/14/ | Hospital | [facility] | Alnais, | Age-related | | 2019 | Encounter | MED CTR OP INFUSION | MD [place] | osteoporosis without | | | | [address] | [address] [facility] | current | | | | [place], [place] | [place] [address] | pathological | | | | [address] | [phone] | fracture (Primary | | | | [phone] | | Dx) | +--------+ + + + + Social [...] + + + | Blood Pressure | 99/55 | 10/14/20181099 PDT | + + + + | Pulse | 64 | 10/14/20181099 PDT | + + + + | Temperature | 36 C (96.8 F) | 10/14/20181023 PDT | + + + + | Respiratory Rate | 16 | 10/14/20181099 PDT | + + + + | Oxygen Saturation | 97% | 10/14/20181099 PDT | + + + + | Inhaled Oxygen | - | - | | Concentration | | | + + + + | Weight | - | - | + + + + | Height | - | - | + + + + | Body Mass Index | - | - | + + + + documented in this encounter Medications at Time of Discharge + + + +---------+ + + | Medication | Sig | Dispensed | Refills | Start | End Date | | | | | | Date | | + + + +---------+ + + | albuterol 90 | Inhale 2 puffs into | 1 | 5 | 05/17/20 | | | mcg/puff inhaler | the lungs every 6 | Inhaler | | 18 | | | | hours as needed for | | | | | | | Wheezing, Shortness | | | | | | | of Breath or | | | | | | | Increased Work of | | | | | | | Breathing (cough). | | | | | + + [...] times daily. | | | 18 | | | mcg/nasal | | | | [...] tablet by | 180 | 2 | 06/09/20 | | | 80 mg tablet | mouth twice a day | tablet | | 18 | | + + + +---------+ + + | gabapentin | take 3 capsules by | 270 | 3 | 10/06/19 | | | (NEURONTIN) 300 mg | mouth three times a | capsule | | 19 | | | capsule | day | | | | | + + + +---------+ + + | | Take 1 tablet by | | 0 | | | | HYDROcodone-acetamin | mouth every 6 hours | | | | | | ophen (NORCO) 10-325 | as needed for Pain. | | | | | | mg per tablet | | | | | | + + + +---------+ + + | Incontinence | As directed | 100 | 11 | 05/05/20 | | | Supplies | | each | | 18 | | | MISCIndications: | | | | | | | Mixed incontinence | | | | | | | urge and stress | | | | | | | (male)(female), | | | | | | | Inflammatory bowel | | | | | | | disease | | | | | | + + + +---------+ + + | levothyroxine | take 1 tablet by | 90 | 2 | 02/05/20 | | | (SYNTHROID) 75 MCG | mouth every morning | tablet | | 18 | | | tablet | BEFORE BREAKFAST | | | | | + + + +---------+ + + | loperamide | Take 2 capsules by | 180 | 3 | 07/16/19 | | | (IMODIUM) 2 mg | mouth 3 times daily. | capsule | | 19 | | | capsuleIndications: | 4 tablets AM 2 | | | | | | Chronic diarrhea | tablets PM | | | | | + + + +---------+ + + | meclizine | take 1 tablet by | 90 | 0 | 02/25/20 | | | (ANTIVERT) 25 mg | mouth three times a | tablet | | 18 | | | tablet | day if needed for | | | | | | | dizziness | | | | | + + + +---------+ + + | metoprolol | take 1/2 tablet by | 30 | 3 | 06/28/19 | | | tartrate (LOPRESSOR) | mouth twice a day | tablet | | 19 | | | 25 mg tablet | | [...] as needed | | | 18 | | | | for Apnea or | | | | | | | Decreased | | | | | | | Responsiveness. | | | | | + + + +---------+ + + | nitroglycerin | Place 1 tablet under | 25 | 3 | 09/23/19 | | | (NITROSTAT) 0.4 mg | the tongue every 5 | tablet | | 18 | | | SL | minutes as needed | | | | | | tabletIndications: | for Chest pain. | | | | | | Chest pain, | | | | | | | unspecified type | | | | | | + + + +---------+ + + | omeprazole | take 1 capsule by | 60 | 10 | 04/27/20 | | | (PRILOSEC) 20 mg | mouth twice a day | capsule | | 18 | | | capsule | | | | | | + + + +---------+ + + | ondansetron | Take 1 tablet by | 270 | 2 | 06/25/19 | | | (ZOFRAN ODT) 4 mg | mouth every 8 hours | tablet | | 19 | | | disintegrating | as needed for | | | | | | tabletIndications: | Nausea. | | | | | | Nausea | | | | | | + + + +---------+ + + | potassium chloride | take 3 tablets by | 450 | 1 | 05/04/20 | | | (KLOR-CON M20) 20 | mouth every morning | tablet | | 18 | | | mEq ER tablet | and 2 every evening | | | | | | | with food | | | | | + + + +---------+ + + | sucralfate | take 1 tablet by | 120 | 1 | 09/08/19 | | | (CARAFATE) 1 g | mouth four times a | tablet | | 19 | | | tablet | day if needed | | | | | + + + +---------+ + + | SUMAtriptan | Take 1 tab by mouth | 9 | 11 | 08/27/19 | | | (IMITREX) 25 mg | on on-set of | tablet | | 19 | | | tabletIndications: | Migraine, may repeat | | | | | | Migraine without | in 2 hours if | | | | | | aura and without | needed. Max 2 tabs/ | | | | | | status migrainosus, | 24 hours | | | | | | not intractable | | | | | | + + + +---------+ + + | topiramate | take 2 tablets by | 228 | 5 | 05/03/20 | | | (TOPAMAX) 50 MG | mouth every 12 hours | tablet | | 18 | | | tablet | for MIGRAINE | | | | | | | PREVENTION | | | | | + + + +---------+ + + | torsemide | take 1 tablet by | 25 | 5 | 08/17/19 | | | (DEMADEX) 5 mg | mouth 5 TIMES A WEEK | tablet | | 19 | | | tablet | | | | | | + + + +---------+ + + | travoprost | 1 drop nightly. | | 0 | | | | (KENYONFaiza Ruiz) 0.004% | | | | | | | ophthalmic solution | | | | | | + + + +---------+ + + | UNABLE TO | Gloves | 400 | 11 | 05/05/20 | | | FINDIndications: | Use as directed | each | | 18 | | | Mixed incontinence | | | | | | | urge and stress | | | | | | | (male)(female), | | | | | | | Inflammatory bowel | | | | | | | disease | | | | | | + + + +---------+ + + | UNABLE TO | Air Mattress | 1 each | 5 | 04/12/20 | | | FINDIndications: | REHAN: 3 months. | | | 18 | | | Pressure injury of | | | | | | | right buttock, stage | | | | | | | 1, Reduced mobility | | | | | | + + + +---------+ + + | zinc sulfate 220 | Take 1 capsule by | 30 | 1 | 04/08/20 | | | mg | mouth Daily. | capsule | | 18 | | | capsuleIndications: | | | | | | | Pressure injury of | | | | | | | right buttock, stage | | | | | | | 1 | | | | | | + [...] documented as of this encounter Progress Notes Lisa Warren RN - 10/14/2018 1141 PDT Vitals: 10/14/18 1024 10/14/18 1100 BP: 103/58 99/55 Pulse: 60 64 Resp: 16 16 Temp: 36 C (96.8 F) TempSrc: Oral SpO2: 95% 97% Administrations This Visit zoledronic acid (RECLAST) IVPB 5 mg Admin Date 10/14/2018 Action New Bag Dose 5 mg Rate 200 mL/hr Route Intravenous Administered By Lisa Warren RN Monitored throughout treatment; treatment completed without untoward effects from medicatio n noted. Next visit per MD. Verbalizes understanding of plan of care. VS stable. Discharged ambulatory with walking canes. to home in stable condition. Electronically signed by: Lisa Warren RN 10/14/2018 11:41 Lisa Simms RN - 07/2018 1042 PDT Vitals: 10/14/18 1024 BP: 103/58 Pulse: 60 Resp: 16 Temp: 36 C (96.8 F) Belinda Meehan received into room 440, independent ambulation with accompanied by family. States here for Reclast infusion. Reports no change in condition, plan of care since last M D visit. Alert, oriented x 4, cooperative. Consent signed. Electronically signed by: Lisa Warren RN 10/14/2018 10:42 documented in this encoun ter Plan of Treatment +--------+---------+ + + + | Date | Type | Specialty | Care Team | Description | +--------+---------+ + + + | 11/15/ | Office | Internal Medicine | Alanis, | | | 2018 | Visit | | [place] | | | | | | [facility] | | | | | | [place] [address] | | | | | | [phone] | | | | | | | | +--------+---------+ + + + + +--------+ + + | Name | Priori | Associated Diagnoses | Order Schedule | | | ty | | | + +--------+ + + | * [facility] OP Infusion - AMB Referral | Routin | Age-related | 1 Occurrences | | | e | osteoporosis without | starting 10/14/2018 | | | | current | until 10/14/2018 | | | | pathological | | | | | fracture | | + +--------+ + + documented as of this encounter Procedures + +--------+ + + + | Procedure Name | Priori | Date/Time | Associated Diagnosis | Comments | | | ty | | | | + +--------+ + + + | LABS - EXTERNAL SCAN | | 10/12/2018 | | Results for this | | | | 0:00 PDT | | procedure are in the | | | | | | results section. | + +--------+ + + + documented in this encounter Results LABS - EXTERNAL SCAN (10/12/2018 0:00 PDT) + + + | Narrative | Performed At | + + + | Ordered by an | | | unspecified provider. | | + + + documented in this encounter Visit Diagnoses + + | Diagnosis | + + | Age-related osteoporosis without current pathological fracture - Primary Senile | | osteoporosis | + + documented in this encounter Administered Medications + +---------+ +------+-------+------+ | Medication Order | MAR | Action | Dose | Rate | Site | | | Action | Date | | | | + +---------+ +------+-------+------+ | zoledronic acid (RECLAST) IVPB | New Bag | 10/15/19 | 5 mg | 200 | | | 5 mg 5 mg, Intravenous, | | 19 10:55 | | mL/hr | | | Administer over 30 Minutes, ONCE, | | PDT | | | | | Ginna 10/14/18 at 1100, For 1 dose | | | | | | + +---------+ +------+-------+------+ +---+---+ | | | +---+---+ documented in this encounter"
--- OUTSIDE RECORDS SUMMARY | ~2018-11-09 | XMS | Encounter Summary ---
Demographics + + + | Address | [address] | | | [place] [address] | + + + | Home Phone | | + + + | Preferred Language | Unknown | + + + | Marital Status | Single | + + + | Jew Affiliation | ADV | + + + [...] Team Providers + +------+ + | Care Towerman Name | Role | Phone | + +------+ + | Maria Esther Cintron MD | PCP | Unavailable | + +------+ + Reason for Visit + + + | Reason | Comments | + + + | Dehydration | | + + + Encounter Details +--------+ + + + + | Date | Type | Department | Care Team | Description | +--------+ + + + + | 10/31/ | Telephone | Digestive Health | Chris Padgett, | Dehydration | | 2008 | | Center [address] | [address] [facility] | | | | | [address] [place] Mailcode: | Naeem Clementina Winkler | | | | | MIGUEL ÁNGELS [facility] | [place], [place] | | | | | Health and Healing, | [address] | | | | | 6th floor [place], | [phone] | | | | | [place] [address] | | | | | | [phone] | | | +--------+ + + + [...]
--- OUTSIDE RECORDS SUMMARY | ~2018-11-09 | XMS | Encounter Summary ---
Demographics + + + | Address | [address] | | | [place] [address] | + + + | Home Phone [...] + + + | Author | [facility] | + + + | Organization | [facility] | + + + | [...] Team Providers + +------+ + | Care Ncr Operator Name | Role | Phone | [...] Refill Request | | 2008 | | Center [address] | [address] | (Sucralfate) | | | | [place] Mailcode: | [facility] | | | | | [address] for | [place], [place] | | | | | Health and Healing, | [address] | | | | | [address]th [facility], | [phone] | | | | | [place] [address] | | | | | | [phone] | | | +--------+--------+ + + + [...]
--- OUTSIDE RECORDS SUMMARY | ~2018-11-09 | XMS | Encounter Summary ---
Demographics + + + | Address | [address] | | | [place] [address] | + + + | Home Phone [...] + + + | Author | [facility] | + + + | Organization | [facility] | + + + [...] Team Providers + +------+ + | Care Lump Maker Name | Role | Phone | + +------+ + PCP | Unavailable | + +------+ + Encounter Details +--------+ + + + + | Date | Type | Department | Care Team | Description | +--------+ + + + + | 12/12/ | Office | [facility], | Clinic, [...] as of this encounter Progress Notes Interface, Bottler Helper In - 09/13/2005 2:06 AM PST [id number] GEOVANNI [facility] Date: 12/12/2004 Clinic: Endocrinology PHONE CONTACT NOTE The patient called me today after having surgery last week here at [facility]. Her concern was the development of 2 decubiti ulcers on her coccyx. One is approximately the size of a quarter and the other is about the size of a sliver dollar. She had some discomfort in this area during the preceding days, but no ulcer was apparent until today. She has been applying Duoderm and apparently has a foam rubber cushion that she received in the hospital, but she is still having substantial pain in this area. She also recently had shoulder surgery, which prevents her from lying on that side. The donut she has apparently collapses under her weight, and therefore provides no pressure relief in the area of the decubiti. She is getting up and ambulating, and showers every day. She has been keeping the area clean. She requested an inflatable donut cushion which I have ordered today through [employer], phone #[phone] and fax #[phone]. Today, the patient will monitor the decubiti closely and will be in touch with myself and her other physician depending on the progress. She also still has [address], which may be removed in one or two weeks when she returns to the Surgery Clinic at [facility]. Beto Meeks M.D. PD / HS [id number] / [id number] / [id number] / [id number] cc: Chris Padgett M.D. Electronically signed by Beto Meeks 09-12-2005 02:22:31 AM documented i n this encounter Plan of Treatment Not on filedocumented as of this encounter Visit Diagnoses Not on filedocumented in this encounter"
--- OUTSIDE RECORDS SUMMARY | ~2018-11-09 | XMS | Encounter Summary ---
Demographics + + + | Address | [address] | | | [place] [address] | + + + | Home Phone [...] Author + + + | Author | [facility] | + + + | Organization | [facility] | + + + | Address [...] Providers + +------+ + | Care Vacuum Cleaner Repairer Name | Role | Phone | + +------+ + | Sulaiman Carrera MD | PCP | Unavailable | + +------+ + Encounter Details +--------+ + + + + | Date | Type | Department | Care Team | Description | +--------+ + + + + | 01/29/ | Ancillary | Registration [id number] | Beto Meeks MD | | | 2005 | Registratio | [address] | [address] | | | | n | [facility] Mailcode: | [place], [place] | | | | | [address] [place], [place] | [address] | | | | | [address] | [phone] | | | | | [phone] | | | +--------+ + + + [...] | + +--------+ + + + | DIFFERENTIAL | Routin | 01/29/2006 | | Results for this | | | e | 2:31 PM | | procedure are in the | | | | PDT | | results section. | + +--------+ + + + | CBC, WITH | Routin | 01/29/2006 | | Results for this | | DIFFERENTIAL | e | 2:31 PM | | procedure are in the | | | | PDT | | results section. | + +--------+ + + + | VITAMIN D, | Routin | 01/29/2006 | | Results for this | | 25-HYDROXY, SERUM | e | 2:31 PM | | procedure are in the | | | | PDT | | results section. | + +--------+ + + + | COMPLETE METABOLIC | Routin | 01/29/2006 | | Results for this | | SET | e | 2:31 PM | | procedure are in the | | (NA,K,CL,CO2,BUN,CRE | | PDT | | results section. | | AT,GLUC,CA,AST,ALT,B | | | | | | DEYA TOTAL,ALK | | | | | | PHOS,ALB,PROT TOTAL) | | | | | + +--------+ + + + | TSH | Routin | 01/29/2006 | | Results for this | | | e | 2:31 PM | | procedure are in the | | | | PDT | | results section. | + +--------+ + + + documented in this encounter Results VITAMIN D, 25-HYDROXY (01/29/2006 2:31 PM PDT) + + + + + + | Component | Value | Ref Range | Performed | Pathologist | | | | | At | Signature | + + + + + + | VITAMIN D | 28Comment: TEST | 20 - 57 ng/mL | | | | 25 HYDROXY | INFORMATION: VITAMIN D, | | | | | | 25-HYDROXYThis assay | | | | | | accurately quantifies | | | | | | the sum of vitamin | | | | | | D3,25-Hydroxy and | | | | | | vitamin D2, | | | | | | 25-Hydroxy. Test | | | | | | performed by [facility] | | | | | | [facility]. | | | | + + + + + + + + | Specimen | + + | | + + + + + + + | Performing | Address | City/State/Zipcode | Phone Number | | Organization | | | | + + + + + | [facility] | [address] | [place], [place] | | | [facility] | | [address] | | + + + + + TSH-THYROID STIM HORMONE (01/29/2006 2:31 PM PDT) + + + + + + | Component | Value | Ref Range | Performed | Pathologist | | | | | At | Signature | + + + + + + | TSH | 4.30Comment: Test | 0.28 - 5.00 | | | | | performed by [facility] | uIU/ml | | | | | [facility] | | | | | | [employer]. | | | | + + + + + + + + | Specimen | + + | | + + + + + + + | Performing | Address | City/State/Zipcode | Phone Number | | Organization | | | | + + + + + | [facility] | [address] | [place] [address] | | | LABORATORY | | | | + + + + + DIFFERENTIAL (01/29/2006 2:31 PM PDT) + +-------+ + + + | Component | Value | Ref Range | Performed | Pathologist | | | | | At | Signature | + +-------+ + + + | NEUTROPHIL | 53 | 50 - 70 % | [facility] | | | % | | | DEPARTMENT | | | | | | OF | | | | | | PATHOLOGY | | + +-------+ + + + | LYMPHOCYTE | 37 | 18 - 42 % | [facility] | | | % | | | DEPARTMENT | | | | | | OF | | | | | | PATHOLOGY | | + +-------+ + + + | MONOCYTE % | 8 | 2 - 8 % | [facility] | | | | | | DEPARTMENT | | | | | | OF | | | | | | PATHOLOGY | | + +-------+ + + + | EOS % | 2 | 1 - 3 % | [facility] | | | | | | DEPARTMENT | | | | | | OF | | | | | | PATHOLOGY | | + +-------+ + + + | BASO % | 0 | <3 % | [facility] | | | | | | DEPARTMENT | | | | | | OF | | | | | | PATHOLOGY | | + +-------+ + + + | NEUTROPHIL | 3.8 | 1.8 - 7.7 K/cu | [facility] | | | # | | mm | DEPARTMENT | | | | | | OF | | | | | | PATHOLOGY | | + +-------+ + + + | LYMPHOCYTE | 2.6 | 1.0 - 4.8 K/cu | [facility] | | | # | | mm | DEPARTMENT | | | | | | OF | | | | | | PATHOLOGY | | + +-------+ + + + | MONOCYTE # | 0.6 | 0.1 - 0.6 K/cu | [facility] | | | | | mm | DEPARTMENT | | | | | | OF | | | | | | PATHOLOGY | | + +-------+ + + + | EOS # | 0.1 | <0.6 K/cu mm | [facility] | | | | | | DEPARTMENT | | | | | | OF | | | | | | PATHOLOGY | | + +-------+ + + + | BASO # | 0.0 | <0.3 | [facility] | | | | | [...] | + + + + + | [facility] DEPARTMENT OF | [address] | [place] [address] | | | PATHOLOGY | [address] | | | + + + + + | [facility] DEPARTMENT OF | [address] | [place] [address] | | | PATHOLOGY | [address] | | | + + + + + CBC, WITH DIFFERENTIAL (01/29/2006 2:31 PM PDT) + +-------+ + + + | Component | Value | Ref Range | Performed | Pathologist | | | | | At | Signature | + +-------+ + + + | WHITE CELL | 7.1 | 4.4 - 11.0 K/cu | [facility] | | | COUNT | | mm | DEPARTMENT | | | | | | OF | | | | | | PATHOLOGY | | + +-------+ + + + | RED CELL | 4.62 | 4.00 - 5.20 | [facility] | [...] +-------+ + + + | HEMATOCRIT | 44.2 | 36.0 - 46.0 % | [facility] | | | | | | DEPARTMENT | | | | | | OF | | | | | | PATHOLOGY | | + +-------+ + + + | MCV | 95.4 | 80.0 - 96.0 fL | [facility] | | | | | | DEPARTMENT | | | | | | OF | | | | | | PATHOLOGY | | + +-------+ + + + | MCHC | 34.0 | 33.4 - 35.5 | [facility] | | | | | g/dL | DEPARTMENT | | | | | | OF | | | | | | PATHOLOGY | | + +-------+ + + + | RDW | 12.1 | 11.5 - 15.0 % | [facility] | | | | | | DEPARTMENT | | | | | | OF | | | | | | PATHOLOGY | | + +-------+ + + + | PLATELET | 263 | 150 - 400 K/cu | [facility] [...] + | [facility] DEPARTMENT OF | [address] | [place] [address] | | | PATHOLOGY | [address] | | | + + + + + | [facility] DEPARTMENT OF | [address] | [place] [address] | | | PATHOLOGY | [address] | | | + + + + + COMP METABOLIC SET (01/29/2006 2:31 PM PDT) + +---------+ + + + | Component | Value | Ref Range | Performed | Pathologist | | | | | At | Signature | + +---------+ + + + | GLUCOSE, | 87 | 65 - 110 mg/dL | [facility] | | | PLASMA | | | DEPARTMENT | | | (LAB) | | | OF | | | | | | PATHOLOGY | | + +---------+ + + + | BUN, PLASMA | 9 | 6 - 20 mg/dL | [facility] [...] +---------+ + + + | TOTAL | 7.1 | 6.1 - 7.9 g/dL | [facility] | | | PROTEIN, | | | DEPARTMENT | | | PLASMA | | | OF | | | (LAB) | | | PATHOLOGY | | + +---------+ + + + | ALBUMIN, | 3.9 | 3.5 - 4.7 g/dL | [facility] | | | PLASMA | | | DEPARTMENT | | | (LAB) | | | OF | | | | | | PATHOLOGY | | + +---------+ + + + | CALCIUM, | 9.4 | 8.5 - 10.5 | [facility] | | | PLASMA | | mg/dL | DEPARTMENT | | | (LAB) | | | OF | | | | | | PATHOLOGY | | + +---------+ + + + | BILIRUBIN | 0.3 | 0.3 - 1.2 mg/dL | [facility] | | | TOTAL | | | DEPARTMENT | | | | | | OF | | | | | | PATHOLOGY | | + +---------+ + + + | ALK PHOS | 153 (H) | 42 - 98 U/L | [facility] | | | | | | DEPARTMENT | | | | | | OF | | | | | | PATHOLOGY | | + +---------+ + + + | AST(SGOT) | 32 | 15 - 41 U/L | [facility] | | | | | | DEPARTMENT | | | | | | OF | | | | | | PATHOLOGY | | + +---------+ + + + | SODIUM, | 138 | 136 - 145 | [facility] | [...] +---------+ + + + | CHLORIDE, | 102 | 98 - 107 mmol/L | [facility] [...] + + + | ALT (SGPT) | 54 (H) | 13 - 48 U/L | [facility] | | | | | | DEPARTMENT | | | | | | OF | | | | | | PATHOLOGY | | + +---------+ + + + + + | Specimen | + + | | + + + + + | Narrative | Performed At | + + + | [id number] Estimated GFR > 60 mL/min/1.73 sq m if non- | [facility] | | [id number] Estimated GFR > 60 mL/min/1.73 sq m if GFR | DEPARTMENT OF | | is estimated using the MDRD equation recommended by the National | PATHOLOGY | | Kidney Disease Education Program. Estimated GFR Interpretive | | | Information: <60 mL/min/1.73 sq m Chronic Kidney Disease | | | <15 mL/mon/1.73 sq m Kidney Failure Estimated GFR greater | | | than 60mL/min/1.73 is of limited clinical Value. The MDRD equation | | | is not valid in the following situations: - Patients under 18 years | | | of age - Severe malnutrition or obesity - Vegetarian diet - | | | Rapidly changing kidney function | | + + + + + + + + | Performing | Address | City/State/Zipcode | Phone Number | | Organization | | | | + + + + + | [facility] | [address] | [place] [address] | | | PATHOLOGY | [address] | | | + + + + + | [facility] | [address] | [place] [address] | | | PATHOLOGY | [address] | | | + + + + + documented in this encounter Visit Diagnoses Not on filedocumented in this encounter"
--- OUTSIDE RECORDS SUMMARY | ~2018-11-09 | XMS | Encounter Summary ---
Demographics + + + | Address | [address] | | | [place] [address] | + + + | Home Phone [...] + + + | Author | [facility] | + + + | Organization | [facility] | + + + | Address [...] Providers + +------+ + | Care Senior Principal Process Engineer Name | Role | Phone | + +------+ + PCP | Unavailable | + +------+ + Encounter Details +--------+ + + + + | Date | Type | Department | Care Team | Description | +--------+ + + + + | 10/20/ | Results | General Surgery | Chris Padgett, | | | 2005 | Only | [address] | [address] | | | | | [facility] | Naeem Mcrae | | | | | Mailcode: [id number] | [place], [place] | | | | | Physicians Sharmila | [address] | | | | | [address] [place], | [phone] | | | | | [place] [address] | | | | | | [phone] | | | +--------+ + + + [...] | + +--------+ + + + | CT PELVIS W IV | Routin | 10/23/2005 | | Results for this | | CONTRAST | e | 11:15 AM | | procedure are in the | | | | PDT | | results section. | + +--------+ + + + | CT ABDOMEN W IV | Routin | 10/23/2005 | | Results for this | | CONTRAST | e | 11:15 AM | | procedure are in the | | | | PDT | | results section. | + +--------+ + + + documented in this encounter Results CT PELVIS W CONTRAST (10/23/2005 11:15 AM PDT) + + + + + + | Component | Value | Ref Range | Performed | Pathologist | | | | | At | Signature | + + + + + + | CT PELVIS W | Radiologist 1: RICARDO, | | | | | CONTRAST | LILIANA, MDCT abdomen and | | | | | | pelvis with oral and 150 | | | | | | cc intravenous | | | | | | omnipaque. Comparison: | | | | | | None. Findings: ABDOMEN: | | | | | | Benign 1 cm posterior | | | | | | right lobe hepatic cyst | | | | | | orhemangioma is noted | | | | | | image 11. There is no | | | | | | suspect hepatic | | | | | | lesion.Cholecystectomy | | | | | | clips are present in the | | | | | | gallbladder | | | | | | fossa. Thereis no | | | | | | biliary duct | | | | | | dilation. Pancreas, | | | | | | spleen, left | | | | | | adrenalgland, and left | | | | | | kidney are | | | | | | normal. There is a | | | | | | punctate | | | | | | collectingsystem | | | | | | calcification in the | | | | | | right lower pole with | | | | | | peripherallow/fluid | | | | | | attenuation 1.6 cm cyst, | | | | | | possibly representing | | | | | | acaliceal diverticulum | | | | | | or other benign renal | | | | | | cyst. 8 mm focal | | | | | | areaof low attenuation | | | | | | nodular thickening of | | | | | | the apex of the | | | | | | rightadrenal gland may | | | | | | represent a small | | | | | | adrenal | | | | | | adenoma. Retroaorticl | | | | | | eft renal vein is | | | | | | incidentally noted. | | | | | | PELVIS: Bladder is | | | | | | unremarkable. Uterus | | | | | | is surgically | | | | | | absent.Ovaries are not | | | | | | identified and are | | | | | | likely absent as | | | | | | well. Thereis no | | | | | | adnexal mass. There | | | | | | is no abdominal-pelvic | | | | | | adenopathy | | | | | | orascites. Postsurgic | | | | | | al changes are noted | | | | | | following gastric | | | | | | bypasssurgery with | | | | | | Zoe-en-Y | | | | | | anastomosis. Osseous | | | | | | structures areintact. | | | | | | CONCLUSION: 1. Punctate | | | | | | right renal calculus | | | | | | possibly associated with | | | | | | calycealdiverticulum. | | | | | | 2. Status post gastric | | | | | | bypass surgery, | | | | | | cholecystectomy,hysterec | | | | | | matthew, and bilateral | | | | | | salpingo | | | | | | oophorectomy. No | | | | | | acuteabnormality. | | | | + + + + + + + + | Specimen | + + | | + + + +---------+ + + | Performing | Address | City/State/Zipcode | Phone Number | | Organization | | | | + +---------+ + + | [facility] DEPARTMENT OF | | | | | RADIOLOGY | | | | + +---------+ + + CT ABDOMEN W CONTRAST (10/23/2005 11:15 AM PDT) + + + + + + | Component | Value | Ref Range | Performed | Pathologist | | | | | At | Signature | + + + + + + | CT ABDOMEN | Radiologist 1: RICARDO, | | | | | W CONTRAST | LILIANA, MDCT abdomen and | | | | | | pelvis with oral and 150 | | | | | | cc intravenous | | | | | | omnipaque. Comparison: | | | | | | None. Findings: ABDOMEN: | | | | | | Benign 1 cm posterior | | | | | | right lobe hepatic cyst | | | | | | orhemangioma is noted | | | | | | image 11. There is no | | | | | | suspect hepatic | | | | | | lesion.Cholecystectomy | | | | | | clips are present in the | | | | | | gallbladder | | | | | | fossa. Thereis no | | | | | | biliary duct | | | | | | dilation. Pancreas, | | | | | | spleen, left | | | | | | adrenalgland, and left | | | | | | kidney are | | | | | | normal. There is a | | | | | | punctate | | | | | | collectingsystem | | | | | | calcification in the | | | | | | right lower pole with | | | | | | peripherallow/fluid | | | | | | attenuation 1.6 cm cyst, | | | | | | possibly representing | | | | | | acaliceal diverticulum | | | | | | or other benign renal | | | | | | cyst. 8 mm focal | | | | | | areaof low attenuation | | | | | | nodular thickening of | | | | | | the apex of the | | | | | | rightadrenal gland may | | | | | | represent a small | | | | | | adrenal | | | | | | adenoma. Retroaorticl | | | | | | eft renal vein is | | | | | | incidentally noted. | | | | | | PELVIS: Bladder is | | | | | | unremarkable. Uterus | | | | | | is surgically | | | | | | absent.Ovaries are not | | | | | | identified and are | | | | | | likely absent as | | | | | | well. Thereis no | | | | | | adnexal mass. There | | | | | | is no abdominal-pelvic | | | | | | adenopathy | | | | | | orascites. Postsurgic | | | | | | al changes are noted | | | | | | following gastric | | | | | | bypasssurgery with | | | | | | Zoe-en-Y | | | | | | anastomosis. Osseous | | | | | | structures areintact. | | | | | | CONCLUSION: 1. Punctate | | | | | | right renal calculus | | | | | | possibly associated with | | | | | | calycealdiverticulum. | | | | | | 2. Status post gastric | | | | | | bypass surgery, | | | | | | cholecystectomy,hysterec | | | | | | matthew, and bilateral | | | | | | salpingo | | | | | | oophorectomy. No | | | | | | acuteabnormality. | | | | + + + + + + + + | Specimen | + + | | + + + +---------+ + + | Performing | Address | City/State/Zipcode | Phone Number | | Organization | | | | + +---------+ + + | [facility] DEPARTMENT OF | | | | | RADIOLOGY | | | | + +---------+ + + documented in this encounter Visit Diagnoses Not on filedocumented in this encounter"
--- OUTSIDE RECORDS SUMMARY | ~2018-11-09 | XMS | Encounter Summary ---
Demographics + + + | Address | [address] | | | [place] [address] | + + + | Home Phone [...] Team Providers + +------+ + | Care Machine Oiler Name | Role | Phone | + [...] Description | +--------+---------+ + + + | 08/26/ | Office | Pain Center at [facility] | Lukasz hCarles, | Major Depressive | | 2006 | Visit | 15th Floor [address] | PhD [address] | Disorder, Recurrent | | | | [address] | Ave [place], [place] | Episode, Moderate | | | | Code: [facility] | [address] | ([facility]); Spondylosis | | | | for Health and | [phone] | with Myelopathy, | | | | Healing, 15th Floor | | Lumbar Region; | | | | [place], [place] | | Herniated Lumbar | | | | [address] | | Intervertebral Disc | | | | [phone] | | L4-5; Neck Pain; | | | | | | Migraine Headache; | | | | | | Chronic Abdominal | | | | | | Pain; Adjustment | | | [...] this encounter Progress Notes Lukasz Charles - 08/26/2006 11:03 AM PDTPROGRESS NOTE: Belinda Meehan is a 46 y.o. female with head, abdominal, back, and leg pain. She has sym ptoms of depression and anxiety along with her pain. She reported that she has been using r elaxation and self-regulation techniques with good result. She was pleased with the result last visit and has been more consistent with practice. She has been doing embroidery and cr oss stitch when the weather has been cold and she has been walking on the warmer days. She has a plan to join [employer] and walk to the gym. She has talked to a friend about walking the riverwalk. Overall she has made some good changes. We discussed thought management an d eliminating negative self-talk. She recognizes the need to make some changes and focus on her own control. She was given a copy of the book Managing Pain Before It Manages You by John Canela. Ms. Meehan has ongoing depression and frustration. She is making good progress and is natalie ing an effort to improve. Diagnosis: [place] I: 1. (296.32) Major depressive disorder, recurrent, moderate. 2. (309.24) Adjustment disorder with anxiety. 3. 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 [place] II: Deferred [place] III: abdominal pain, migraine headache, low back pain. [place] IV: low finances [place] V: GAF 50 Plan: Return in 2 weeks. Check pacing, relaxation, activity, distraction. Check managing Pain.. . book. Continue cognitive/behavioral therapy. Total time spent with patient was approximately 45 minutes. LUKASZ CHARLES [facility] [address] [place] [address] And [facility] [address] [place] [address] documented in this encount er Plan of Treatment + + +--------+ + + | Name | Type | Priori | Associated Diagnoses | Order Schedule | | | | ty | | | + + +--------+ + + | [place] PSYCHOTHERPY, | Procedures | Routin | Major Depressive | Ordered: 08/26/2006 | | OFFICE (45-50) | | e | Disorder, Recurrent | | | | | | Episode, Moderate | | | | | | (HCC) Spondylosis | | | | | | with Myelopathy, | | | | | | Lumbar Region | | | | | | Herniated Lumbar | | | | | | Intervertebral Disc | | | | | | L4-5 Neck Pain | | | | | | Migraine Headache | | | | | | Chronic [...] | without myelopathy | + + | Neck pain Cervicalgia | + + | Migraine headache Migraine, unspecified, without mention of intractable migraine | | without mention of status migrainosus | + + | Chronic abdominal pain Abdominal pain, unspecified site | + + | Adjustment disorder with anxiety | + + | Other pain disorders related to psychological factors | + + documented in this encounter"
--- OUTSIDE RECORDS SUMMARY | ~2018-11-09 | XMS | Encounter Summary ---
Demographics + + + | Address | [address] | | | [place] [address] | + + + | Home Phone [...] Team Providers + +------+ + | Care Manufacturing Job Titles Name | Role | Phone | + +------+ + PCP | Unavailable | + +------+ + Encounter Details +--------+ + + + + | Date | Type | Department | Care Team | Description | +--------+ + + + + | 02/11/ | Office | | Note, Outpatient | [...] as of this encounter Progress Notes Interface, Gum Cook In - 01/12/2005 8:09 AM PDTClinic Date: 02/12/2004 Clinic: Subjective: Mrs. Meehan is a 44-year-old woman, who had a laparoscopic gastric bypass on November 22, 2003. She really is doing quite well. She has since had an operation of a bone spur on her ankle, but in terms of her gastric bypass, she has done well. She has lost approximately 39 pounds. She is doing water exercises. She has no nausea or vomiting. She is eating well. Present Medications: Her present medications are ranitidine, multivitamins, calcium, vitamin D, and B12 injections. Physical Examination Vital Signs: Her weight today is 256 pounds, and her blood pressure is 162/88. Examination shows her wounds to be well healed and no problems. Plan: Plan is to get a CBC and a complete metabolic panel today and see her in 4 months. Chris Padgett M.D. ROSA / SHARIF [id number] / [id number] / [id number] / Tdocumented in this encounter Plan of Treatment Not on filedocumented as of this encounter Visit Diagnoses Not on filedocumented in this encounter"
--- OUTSIDE RECORDS SUMMARY | ~2018-11-09 | XMS | Encounter Summary ---
Demographics + + + | Address | [address] | | | [place] [address] | + + + | Home Phone [...] Author + + + | Author | [facility] | + + + | Organization | [facility] | + + + | [...] Team Providers + +------+ + | Care Automotive Engineering Technician Name | Role | Phone | + +------+ + | Pedrito Gutierrez MD | PCP | | + +------+ + Reason for Visit + + + | Reason | Comments | + + + | LBP - Low back pain | both legs | + + + Encounter Details +--------+---------+ + + + | Date | Type | Department | Care Team | Description | +--------+---------+ + + + | 01/11/ | Office | [facility] Comprehensive | PetraInesDelfina, | Left Knee Pain; DJD | | 2006 | Visit | Pain Center at | ANP | (Degenerative Joint | | | | [place] | | Disease) of Knee; | | | | [address] | | Herniated Lumbar | | | | Mail Code: CH15P | | Intervertebral Disc | | | | [facility] | | L4-5; Spondylosis | | | | and Healing, | | with Myelopathy, | | | | Floor [place], [place] | | Lumbar Region; | | | | [address] | | Fibromyalgia | | | | [phone] | | syndrome 729.1; | | | | | | Encounter for | | | | | | Long-Term (Current) | | | | | | Use of Opioids | +--------+---------+ + + + Social History [...] + + + | Blood Pressure | 120/82 | 01/11/2007 2:43 PM | | | | | PDT | | + + + + + | Pulse | 62 | 01/11/2007 2:43 PM | | | | | PDT | | + + + + + | Temperature | 37.3 C (99.1 F) | 01/11/2007 2:43 PM | | | | | PDT | | + + + + + | Respiratory Rate | 16 | 01/11/2007 2:43 PM | | | | | PDT | | + + + + + | Oxygen Saturation | - | - | | + + + + + | Inhaled Oxygen | - | - | | | Concentration | | | | + + + + + | Weight | 88 kg (193 lb 14.4 | 01/11/2007 2:43 PM | | | | oz) | PDT | | + + + + + | Height | 175.3 cm (5' 9") | 01/11/2007 2:43 PM | | | | | PDT | | + + + + + | Body Mass Index | 28.63 | 01/11/2007 2:43 PM | | | | | PDT | | + + + + + documented in this encounter Patient Instructions Patient Instructions Delfina Molina - 01/11/2007 3:18 PM PDT1. Take Oxycontin 40mg, 1 ta blets every 12 hours. 2. Continue oxycodone 5mg, 1 tablet every 6 hrs as needed for activity related breakthrough pain NTE 2 per day. 3. Follow up after your left knee surgery rehabilitation to review . Call in for your presc riptions 7 days before you are due. 4. Continue with outside PT and Independent Home Exercise Program until surgery pending 02/13 12/19. documented in this encounter Progress Notes Delfina Molina - 01/11/2007 3:04 PM PDTFormatting of this note might be different from lesli gomez. 01/11/2007 Belinda Meehan is a 46 y.o. female [facility] Comprehensive Pain Center Return Visit Chief Complaint: Chief Complaint Patient presents with LBP - Low back pain both legs History of Present Illness: Belinda Meehan is a 46 y.o. 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 Belinda Meehan is here today for a follow up visit to review chronic pain management plan of care. Since prior visit this condition has improved in the right heel and lower back . She does not have new pain complaints on this visit. Expectations for this visit include: continue with current therapy The worst pain is located in the left knee and low back and described as constant dull, ach ing, with right leg pain. A Brief Pain Inventory and a pain drawing has be completed, which I reviewed. Current pain intensity on a VA Scale 0-10 is: 8 in the left knee;8/10 in the lower back and right leg. New treatment since last visit includes: increased oxycontin dose to 40mg q12hr ; plans to start PT for the knee pre op Since prior visit, mood and sleep "Better "sleeping longer" Not waking up as early (2 hour s ) with the pain. Review of Systems: Bones, Joints, and Muscles: joint pain, muscle pain and stiffness Gastrointestinal System: negative Genitourinary System: negative Nervous System: negative Psychiatric History: depressed mood No confusion or sedation with medications. Since prior visit, there have been no changes in past medical history, past surgical histor y, family history, or social history. Current outpatient prescriptions Medication Sig Dispense Refill Oxycodone HCl (OXYCONTIN) 20 mg Oral Tablet Sustained Release 12 hr take 2 tablet (40 m g) by oral route every 12 hours Omeprazole (PRILOSEC) 20 mg Oral Capsule, Delayed Release(E.C.) take 1 capsule (20 mg) by oral route once daily before a meal Oxycodone HCl 5 mg Oral Tablet take 1 tablet (5 mg) by mouth every 6 hours as needed fo r pain 120 0 LEVOTHYROXINE OR takes .05mg daily Oxcarbazepine [...] Family History Mother Migraine Physical examination: BP 120/82 | Pulse 62 | Temp (Src) 99.1 F (37.3 C) (Oral) | Resp 16 | Ht 1.753 m (5' 9") | Wt 87.952 kg (193 lbs 14.4 oz) Body mass index is 28.63 kg/(m^2). General appearance:Flat affect, alert in no acute distress, well groomed, pleasant, left an talgic gait Impression: 719.46J Left Knee Pain 715.36B DJD (Degenerative Joint Disease) of Knee 722.10H Herniated Lumbar Intervertebral Disc L4-5 721.42 Spondylosis with Myelopathy, Lumbar Region 729.1 Fibromyalgia syndrome 729.1 V58.69 Encounter for Long-Term (Current) Use of Opioids Belinda Meehan was compliant with all aspects of chronic opioid therapy , is using the me dication as directed, demonstrates benefits, and has no serious adverse effects. There were no significant cognitive or mood impairments. There is no evidence of diversion past or pre sent. I discussed the goal of decreasing the short acitng oxycododne in favor of optimizing the long acting oxycodone. Belinda is not likely to receive more pain control until her kne e surgery pending 03/01/07. We have discussed pursuing regional anesthesia for her surgery and continuing with her current opioid dose through the surgical and post surgical period. I will continue to prescribe and review her chronic pain issues following srugical rehabilit ation. Iwill not be managing her acute post operative pain needs. Recommendations/Plan: A 30 minute visit with greater than 50% spent in reviewing the progress notes and counselli ng/education of the patient. 1. .Take Oxycontin 40mg, 1 tablets every 12 hours. 2. Continue oxycodone 5mg 1 tablet every 6 hrs as needed for activity related breakthrough pain NTE 2 per day. 3. Follow up after your left knee surgery rehabilitation to review . Belinda remineded to ca ll in for your prescriptions 7 days before the due. 4. Continue with outside PT and Independent Home Exercise Program until surgery pending 02/13 12/19. DELFINA MOLINA [facility] Pain Center Mail code CH 4P [place] [facility] and [address] [address] Ailyn Foster - 01/12/20 07 2:58 PM PDT Ailyn Foster - 01/11/2007 2:43 PM PDTCMA History: PMH/PSH/SH/FH review 1. Has [...] you require any medication refills today? Yes but may need to change mg on oxyconti n, and sig on oxycodone documented in this encount er Plan of Treatment Not on filedocumented as of this encounter Visit Diagnoses + + | Diagnosis | + + | Left Knee Pain Pain in joint, lower leg | + + | DJD (degenerative joint disease) of knee Osteoarthrosis, unspecified whether | | generalized or localized, lower leg | + + | Herniated Lumbar Intervertebral Disc L4-5 Displacement of lumbar intervertebral disc | | without myelopathy | + + | Spondylosis with myelopathy, lumbar region | + + | Fibromyalgia syndrome 729.1 Mylagia and myositis, unspecified | + + | Encounter for Long-Term (Current) Use of Opioids Encounter for long-term (current) | | use of other medications | + + documented in this encounter
--- OUTSIDE RECORDS SUMMARY | ~2018-11-09 | XMS | Encounter Summary ---
Demographics + + + | Address | [address] | | | [place] [address] | + + + | Home Phone [...] Author + + + | Author | [facility] | + + + | Organization | [facility] | + + + | [...] Team Providers + +------+ + | Care Property Custodian Name | Role | Phone | [...] as of this encounter Progress Notes Interface, Chief Dog License Inspector In - 04/07/2006 2:32 AM PDT [id number] GEOVANNI SKELTON Molly [id number] Clinic Date: 04/01/2006 Clinic: Rheumatology Belinda Meehan is here for a couple of trigger point injections. She comes from [place]. Tomorrow, she is due for an EGD [...] 4 months. Caitlin Rivera M.S., F.N.P. / [id number] / [id number] / [id number] / [id number] Electronically signed by Caitlin Rivera 04-06-2006 03:23:35 PM documented i n this encounter Plan of Treatment Not on filedocumented as of this encounter Visit Diagnoses Not on filedocumented in this encounter"
--- OUTSIDE RECORDS SUMMARY | ~2018-11-09 | XMS | Encounter Summary ---
Demographics + + + | Address | [address] | | | [place] [address] | + + + | Home Phone [...] Organization | [facility] | | | and Jairana [...] Team Providers + +------+ + | Care Script Worker Name | Role | Phone | + +------+ + | Petrona Thapa | PCP | | | MD | | | + +------+ + Reason for Visit + + + | Reason | Comments | + + + | Sinus Pain | | + + + Encounter Details +--------+ + + + + | Date | Type | Department | Care Team | Description | +--------+ + + + + | 09/01/ | Telephone | [facility] | Alanis, | Sinus Pain | | 2019 | | MEDICINE [address] [place] [address] | MD Petrona | | | | | [facility] | [address] [place] [address] | | | | | [place] [address] | [place] [address] | | | | | [phone] | [phone] | | | | | | | [...] Petrona | | | | | | [facility] [address]ONICA KAY | | | | | | [place] [address] | | | | | | [phone] | | | | | | | | +--------+---------+ + + + documented as of this encounter Visit Diagnoses Not on filedocumented in this encounter"
--- OUTSIDE RECORDS SUMMARY | ~2018-11-09 | XMS | Encounter Summary ---
Demographics + + + | Address | [address] | | | [place] [address] | + + + | Home Phone [...] Team Providers + +------+ + | Care Site Lead Name | Role | Phone | + [...] myositis, | [address] | | | | | unspecified | [address] | [address] | | | | | Encounter | [place] | | | | | for | [address] | [address] | | | | | long-term | | Phone: | | | | | (current) | | [phone] | | | | | use of other | | Fax: | | | | | medications | | [phone] | | | | | LBP (low [...] 06/23/ | Office | Pain Center at [facility] | Lukasz Charles, | Major depressive | | 2013 | Visit | [address]th Floor [address] | PhD [address] | disorder, recurrent | | | | [address] | Ave [place], [place] | episode, moderate | | | | Code: [facility] Center | [address] | ([facility]) (Primary Dx); | | | | for Health and | [phone] | LBP (low back pain); | | | | Healing, 15th Floor | | Adjustment disorder | | | | [place], [place] | | with anxiety | | | | [address] | | | | | | [phone] | | | +--------+---------+ + + + [...] an appropriate candidate for a stimulator. Diagnosis: [place] I: 1. (296.32) Major depressive disorder, recurrent, moderate. 2. (309.24) Adjustment disorder with anxiety. [place] II: Deferred [place] III: abdominal pain, migraine headache, low back pain, fibromyalgia. [place] IV: low finances [place] V: GAF 55-60 Plan: return in 1 month. Check mood, pain, activity, stress management. Ask about spinal cord stimulator, any changes at home. Continue cognitive/behavioral therapy. Total time spent with patient was approximately 45 minutes. LUKASZ CHARLES [facility] [address] [facility], 4th [place] [address] documented in this en counter Plan of [...]
--- OUTSIDE RECORDS SUMMARY | ~2018-11-09 | XMS | Encounter Summary ---
Demographics + + + | Address | [address] | | | [place] [address] | + + + | Home Phone [...] + + + | Author | [facility] | + + + | Organization | [facility] | + + + | [...] Team Providers + +------+ + | Care Juice Weigher Name | Role | Phone | + +------+ + | Pedrito Gutierrez MD | PCP | | + +------+ + Encounter Details +--------+ + + + + | Date | Type | Department | Care Team | Description | +--------+ + + + + | 12/24/ | Telephone | General Surgery | Chris Padgett, | | | 2005 | | Bariatric [address] | [address] | | | | | [address] [address] | [facility] | | | | | Road Mailcode: | [place], [place] | | | | | [address] | [address] | | | | | [address] | [phone] | | | | | [place], [place] | | | | | | [address] | | | | | | [phone] | | | +--------+ + + + [...]
--- OUTSIDE RECORDS SUMMARY | ~2018-11-09 | XMS | Encounter Summary ---
Demographics + + + | Address | [address] | | | [place] [address] | + + + | Home Phone [...] Author + + + | Author | [facility] | + + + | Organization | [facility] | + + + | Address [...] Team Providers + +------+ + | Care Carton Inspector Name | Role | Phone | [...] | Bianca, | | | | | Internal | T, DRIVER MATERIAL HANDLER [address] | Bandar Stroud MD | | | | | hemorrhoid | [address] | [address] | | | | | Rectal pain | AVE | [address] | | | | | Procedures | [place], [place] | [place], | | | | | CONSULT TO | [address] | [place] | | | | | COLORECTAL | | [address] | | | | | SURGERY | | Phone: | | | | | | | [phone] | | | | | | | Fax: | | | | | | | [phone] | +--------+--------+ + + + + Encounter Details +--------+---------+ + + + | Date | Type | Department | Care Team | Description | +--------+---------+ + + + | 10/03/ | Office | Digestive Health | Bandar Valenzuela, | Anal or Rectal Pain | | 2008 | Visit | Center at [facility] [address] | [address] | (Primary Dx) | | | | [address] | [address] | | | | | Mailcode: [place] | [place], [place] | | | | | [facility] and | [address] | | | | | [facility] 2 | [phone] | | | | | [place], [place] | | | | | | [address] | | | | | | [phone] | | | +--------+---------+ + + + [...] + + + | Blood Pressure | 127/67 | 10/03/2008 10:33 AM | | | | | PDT | | + + + + + | Pulse | 74 | 10/03/2008 10:33 AM | | | | | PDT | | + + + + + | Temperature | - | - | | + + + + + | Respiratory Rate | 16 | 10/03/2008 10:33 AM | | | | | PDT | | + + + + + | Oxygen Saturation | - | - | | + + + + + | Inhaled Oxygen | - | - | | | Concentration | | | | + + + + + | Weight | 91.9 kg (202 lb 9.6 | 10/03/2008 10:33 AM | | | | oz) | PDT | | + + + + + | Height | - | - | | + + + + + | Body Mass Index | 29.92 | 09/14/2008 7:37 AM | | | | | PDT | | + + + + + documented in this encounter Progress Notes Bandar Valenzuela MD - 10/05/2008 10:36 PM PDTFormatting of this note might be different fr om the original. 10/03/2008 Colorectal Surgery Clinic New Patient Consultation Referring Physician: NURIS CARDENAS NP Reason for consultation: Hemorrhoids HPI: Belinda Meehan is a 48-year-old woman with an extensive past medical history including fibr omyalgia, irritable bowel syndrome, dumping syndrome, and intestinal ulcers who presents wit h a several year history of anorectal pain. She describes the pain has severe, 10 out of 10 , sharp, in the "high rectum or intestines", and not associated with bowel movements. She h as three to five bowel movements per day, with occasional rectal bleeding. She has not note d blood mixed with the stool. Her pain occasionally wakes her up at night and can last for one to two hours. She has some occasional in confidence to diarrhea and gas, but not solid stool. She had a normal colonoscopy at [facility] in 2005 PMH: Past Medical History Diagnosis Date Chronic Abdominal [...] Headache Kidney Stone Unspecified Disorder of Thyroid PSH: Past Surgical History Procedure Date Hx salpingo-oophorectomy Colonoscopy 03/2006 Hx tonsillectomy Pr d&c after delivery Pr inject trigger point, 1 or 2 Hx knee replacement 02/2007 Left knee Hx knee replacement 08/2007 right knee Hx lumbar fusion 05/2008 [id number] with bone spur removals Hx appendectomy Hx cholecystectomy Hx section Hx hysterectomy Gastric bypass Mayra Padgett wt 278 01/18 Paniculectomy MED: Current outpatient prescriptions prior to encounter Medication [...] t bedtime. levothyroxine 50 mcg Oral Tablet take 1 tablet (50 mcg) by oral route once daily 30 1 2 methocarbamol 750 mg Oral Tablet Take 1-2 Tabs by mouth three times daily. Multivitamin Oral Tablet 1 tab by mouth twice daily omeprazole magnesium (PRILOSEC OTC) 20 mg Oral Tablet, Delayed Release (E.C.) take 1 ta blet by mouth twice daily oxycodone CR 40 mg Oral Tablet Sustained Release 12 hr Take 40 mg by mouth two times da bijan. PERCOCET 5-325 mg Oral Tablet Take 1-2 Tabs by mouth every four hours as needed. #120/ month. POTASSIUM CHLORIDE SR 20 MEQ TAB, PARTICLES/CRYSTALS take 1 tablet (20meq) by oral rout e once daily with food promethazine 25 mg Oral Tablet 1 tab by mouth as needed sucralfate (CARAFATE) 1 gram Oral Tablet 1 tab four times daily as needed for abdominal pain 120 3 VITAMIN C 500 MG CHEWABLE TAB four times a day ALL: Allergies Allergen Reactions Keflex (Cephalexin) Sulfa (Sulfonamides) Codeine Penicillins Clindamycin Cipro (Ciprofloxacin) Tramadol Morphine IM ( only in [facility]) made gut pain worse 08/27/06: Trial of oral MSIR caused leg swelling Clarithromycin Hives Mainly in the legs Lbjqrdv-iaaphewnuh-fzf-caff Balance problems Amitriptyline Grand mal seizures SH: History Substance Use Topics Tobacco Use: Quit -- 1.0 packs/day for 30 years one pack in five days Alcohol Use: No FH: Family History Problem Relation Cancer Mother Heart Father Additional Family History Father Migraine Additional Family History Mother Migraine No family hx CRC ROS: positive for diminished vision, seizures related to medications, angina, competitions, heartburn, weight loss, and pneumonia. All others negative other than HPI Exam BP 127/67 | Pulse 74 | Resp 16 | Wt 91.899 kg (202 lb 9.6 oz) Gen: Alert, NAD Neuro: A&O, some difficulty with gait Psych: normal affect, speech HEENT: Anicteric Cor: Reg Pulm: Clear Abd: soft, nt Extr: warm perianal skin: small external tags digital exam: normal tone, no masses, reports severe pain with palpation of all areas, not worse with palpation of levator or posterior midline Anoscopy: normal appearing internal hemorrhoids, no fissure Labs: Component Reference Range 07/28/2008 08/28/2008 GLUCOSE (LAB) 60-99 mg/dL 98 BUN 6-20 mg/dL 12 CREATININE,PLASMA 0.60-1.10 mg/dL 0.64 TOTAL PROTEIN 6.1-7.9 g/dL 6.7 ALBUMIN (LAB) 3.5-4.7 g/dL 3.7 CALCIUM (LAB) 8.6-10.2 mg/dL 9.4 9.7 BILIRUBIN TOTAL 0.3-1.2 mg/dL 0.7 ALK PHOS 42-98 U/L 109 (H) AST(SGOT) 15-41 U/L 39 SODIUM (LAB) 134-143 mmol/L 143 POTASSIUM (LAB) 3.4-5.0 mmol/L 4.2 CHLORIDE 97-108 mmol/L 100 TOTAL CO2 23-31 mmol/L 31 ALT (SGPT) 13-48 U/L 75 (H) AST CMNT SL HEMO POTASSIUM CMNT SL HEMO IRON SERUM 37-160 ug/dL 89 IRON BIND CAP SERUM 245-400 ug/dL 431 (A) VITAMIN D 25 HYDROXY 30-100 ng/mL 52 PTH, SERUM 12-65 pg/mL 49 Additional data: 1. INTERNAL HEMORRHOIDS. 2. TWO DIMINUTIVE POLYPS IN THE SIGMOID, BIOPSIED AND REMOVED. TWO SESSILE POLYPS IN THE RECTUM, SNARED. 3. NORMAL APPEARING TERMINAL ILEUM. NO CAUSE FOUND FOR ABDOMINAL PAIN ON THIS EXAM. Patholgy C: Rectum, polypectomy x 2: - Colorectal mucosa with xanthomatous changes of lamina propria - Negative for dysplasia - Please see comment Comment: The findings in the rectal biopsies reveal xanthomatous changes of lamina propria. Special stains for PAS/d, mucicarmine and Sana are reviewed. Impression: Belinda Meehan a 48 year old woman a long-standing history of anorectal pain. This occur s and the setting of fibromyalgia and other chronic pain issues. Her exam today did not rev eal any cause of her pain. She did have some xanthomatous changes on biopsies taken at her 2006 colonoscopy, but this is an extremely unusual finding and it's significance is uncertai n. Recommendations: I have recommended an initial approach with conservative management including a fiber suppl ementation and on a fluids. Consideration can be given to further testing with either repea t endoscopy to evaluate for further xanthomatous changes, or pelvic floor testing to more cl early define potential causes for her pelvic pain. Her her her documented in this e ncounter Plan of Treatment + + +--------+ + + | Name | Type | Priori | Associated Diagnoses | Order Schedule | | | | ty | | | + + +--------+ + + | [facility] | Procedures | Routin | Anal or Rectal | Ordered: 10/05/2008 | | ANOSCOPY | | e | Pain | | + + +--------+ + + documented as of this encounter Visit Diagnoses + + | Diagnosis | + + | Anal or rectal pain - Primary | + + documented in this encounter
--- OUTSIDE RECORDS SUMMARY | ~2018-11-09 | XMS | Encounter Summary ---
Demographics + + + | Address | [address] | | | [place] [address] | + + + | Home Phone [...] Author + + + | Author | [facility] | + + + | Organization | [facility] | + + + | Address [...] Team Providers + +------+ + | Care Box Coverer Hand Name | Role | Phone | [...] as of this encounter Progress Notes Interface, Software Developer Mid Level In - 01/12/2005 9:13 AM PDT [id number] [facility] Date: 04/10/2004 Clinic: Rheumatology [...] with sitting and it is worse in diver's tender and early evening. Her IGF-1 was low [...] 3 months. Caitlin Rivera M.S., F.N.P. / [id number] / [id number] / [id number] / cc: Pedrito Gutierrez M.D. [address] [facility] [place] [address] documented i n this encounter Plan of Treatment Not on filedocumented as of this encounter Visit Diagnoses Not on filedocumented in this encounter"
--- OUTSIDE RECORDS SUMMARY | ~2018-11-09 | XMS | Encounter Summary ---
Demographics + + + | Address | [address] | | | [place] [address] | + + + | Home Phone [...] Author + + + | Author | [facility] | + + + | Organization | [facility] | + + + | Address [...] Team Providers + +------+ + | Care Radiographer Name | Role | Phone | + +------+ + | Sulaiman Carrera MD | PCP | Unavailable | + +------+ + Encounter Details +--------+ + + + + | Date | Type | Department | Care Team | Description | +--------+ + + + + | 08/06/ | Ancillary | Registration [address] | Caitlin Rivera, | | | 2005 | Registratio Anika [address]ley | JIMBO | | | | n | [facility] Mailcode: | | | | | | [address] [place], [place] | | | | | | [address] | | | | | | [phone] | | | +--------+ + + + [...]
--- OUTSIDE RECORDS SUMMARY | ~2018-11-09 | XMS | Encounter Summary ---
Demographics + + + | Address | [address] | | | [place] [address] | + + + | Home Phone [...] Author + + + | Author | [facility] | + + + | Organization | [facility] | + + + | Address [...] Team Providers + +------+ + | Care Automatic Dispenser Mechanic Name | Role | Phone | + +------+ + | Pedrito Gutierrez MD | PCP | | + +------+ + Reason for Visit + + + | Reason | Comments | + + + | MRI Results | | + + + Encounter Details +--------+---------+ + + + | Date | Type | Department | Care Team | Description | +--------+---------+ + + + | 10/28/ | Office | Orthopaedics at | Angel Morales | Muscular | | 2006 | Visit | [facility] [address] Mychal Maier MD,PhD [address] | Deconditioning; | | | | Av[address]enn[address] Mailcode: [address] | [address] | Physical | | | | [facility] | [place], [place] | Deconditioning | | | | and | [address] | | | | | Floor [place], [place] | [phone] | | | | | [address] | | | | | | [phone] | | | +--------+---------+ + + + [...] documented as of this encounter Progress Notes Angel Morales - 10/28/2006 9:40 AM Gini Meehan is here with a diagnosis of left knee OA and muscular deconditioning. She has participated in PT 1-2 x/weekly x 6 weeks. She continues to fall when the left knee gives out with no fair warning, while walking. She rep orts her pain is fairly consistent with intermittent burning on the inside of the knee and s hooting pain throughout the knee. Dr. Ibarra evaluated and has concern for neurologic basi s, however ordered MRI to assess possibility of cartilage/loose body mechanical instability Her interval history and physical exam is unchanged as outlined in my previous note. The MRI of left, knee dated is read and reviewed in detail with Belinda Meehan. Si gnificant findings include: Degenerative mild changes of the cartilage, minimal post menisc al changes from prior surgery with Dr. Vasquez. Assessment: No evidence of mechanical instability, suspect Neuro-basis. Plan: No Follow up necessary with Ortho knee. Recommend continue pain management, PT for co nditioning and neurology assessment. Angel Morales M.D., Ph.D. Accounting File Clerk, Surgical Fibre [facility] Department of [email or web address] [email or web address] documented in this encou er Plan of Treatment Not on filedocumented as of this encounter Visit Diagnoses + + | Diagnosis | + + | Muscular deconditioning Muscular wasting and disuse atrophy, not elsewhere classified | + + | Physical deconditioning Muscular wasting and disuse atrophy, not elsewhere classified | + + documented in this encounter"
--- OUTSIDE RECORDS SUMMARY | ~2018-11-09 | XMS | Encounter Summary ---
Demographics + + + | Address | [address] | | | [place] [address] | + + + | Home Phone [...] Team Providers + +------+ + | Care Terminal Operator Name | Role | Phone | [...]
--- OUTSIDE RECORDS SUMMARY | ~2018-11-09 | XMS | Encounter Summary ---
Demographics + + + | Address | [address] | | | [place] [address] | + + + | Home Phone [...] + + + | Author | [facility] | + + + | Organization | [facility] | + + + | [...] Team Providers + +------+ + | Care Insurance Loss Control Surveyor Name | Role | Phone | + +------+ + PCP | Unavailable | + +------+ + Reason for Visit + + + | Reason | Comments | + + + | Abdominal pain | recurrent, right abdominal, ED visit | + + + Encounter Details +--------+ + + + + | Date | Type | Department | Care Team | Description | +--------+ + + + + | 12/25/ | Telephone | General Surgery | Chris Padgett, | Abdominal pain | | 2005 | | Bariatric [address] | [address] | (recurrent, right | | | | [address] | [address] | abdominal, ED visit) | | | | Road Mailcode: | [place], [place] | | | | | [address] | [address] | | | | | [address] | [phone] | | | | | [place], [place] | | | | | | [address] | | | | | | [phone] | | | +--------+ + + + [...]
--- OUTSIDE RECORDS SUMMARY | ~2018-11-09 | XMS | Encounter Summary ---
Demographics + + + | Address | [address] | | | [place] [address] | + + + | Home Phone [...] + + + | Author | [facility] | + + + | Organization | [facility] | + + + | [...] Providers + +------+ + | Care Head Filter Tank Tender Helper Name | Role | Phone | + +------+ + | Pedrito Gutierrez MD | PCP | | + +------+ + Encounter Details +--------+ + + + + | Date | Type | Department | Care Team | Description | +--------+ + + + + | 01/11/ | Telephone | Digestive Health | Chris Padgett, | | | 2009 | | Center [address] | [address] | | | | | [address] Mailcode: | [address] | | | | | [address] | [place], [place] | | | | | Health and Healing, | [address] | | | | | [address]th [facility], | [phone] | | | | | [place] [address] | | | | | | [phone] | | | +--------+ + + + [...]
--- OUTSIDE RECORDS SUMMARY | ~2018-11-09 | XMS | Encounter Summary ---
Demographics + + + | Address | [address] | | | [place] [address] | + + + | Home Phone [...] Team Providers + +------+ + | Care Tyre Fitter Name | Role | Phone | + [...] | | | | | Encounter | [place], [place] | [place] | | | | | for | [address] | [address] | | | | | long-term | | Phone: | | | | | (current) | | [phone] | | | | | use of other | | Fax: | | | | | medications | | [phone] | | | | | LBP (low [...] Description | +--------+---------+ + + + | 04/21/ | Office | Pain [facility] at [facility] | Lukasz Charles, | Major depressive | | 2012 | Visit | 15th Floor [address] | PhD [address] | disorder, recurrent | | | | [address] Mail | Ave [place], [place] | episode, moderate | | | | Code: [facility] | [address] | ([facility]) (Primary Dx); | | | | for Health and | [phone] | LBP (low back pain); | | | | Healing, 15th Floor | | Fibromyalgia; | | | | [place], [place] | | Adjustment disorder | | | | [address] | | with anxiety | | | | [phone] | | | +--------+---------+ + + + [...] encounter Progress Notes Lukasz Charles, PhD - 04/21/2013 11:51 AM PSTPROGRESS NOTE: Belinda Meehan is a 53 y.o. female with diffuse body pain. I have not seen her since . She has started seeing a new primary care provider who recommended that she return to [facility] for pain assessment and treatment. She reported that she has had numerous surgeries and other health problems since we last met. We discussed some of her health issues. We discus sed her activities and details of her current life. She described a very stressful home sit uation. She is still in a 2-bedroom apartment. Both of her sons have moved in with her and one of the sons has a girlfriend and new baby who also live there with her. She is paying most of the expenses and she understands that people are taking advantage of her. She is st ruggling with the situation but she is not at a point of making definite changes. We discus sed the goals and limitations of treatment here. She plans to return in 1 month. Ms. Meehan has depression and a lot of stress in her life. She is not suicidal. She has realistic expectations and she understands that she needs to make some changes in her living situation. Diagnosis: [place] I: 1. (296.32) Major depressive disorder, recurrent, moderate. 2. (309.24) Adjustment disorder with anxiety. [place] II: Deferred [place] III: abdominal pain, migraine headache, low back pain, fibromyalgia. [place] IV: low finances [place] V: GAF 55-60 Plan: return in 1 month. Check mood, pain, activity. Ask about visiting with Dr. Montero, spinal cord stimulator, any changes at home. Continue cognitive/behavioral therapy. Total time spent with patient was approximately 50 minutes. LUKASZ CHARLES PHD [facility] [address] [place] [address] And [facility], [address] [place] [address] documented in this en counter Plan of Treatment Not on filedocumented as of this encounter Visit Diagnoses + + | Diagnosis | + + | Major depressive disorder, recurrent episode, moderate (HCC) - Primary Major | | depressive disorder, recurrent episode, moderate | + + | LBP (low back pain) Lumbago | + + | Fibromyalgia Mylagia and myositis, unspecified | + + | Adjustment disorder with anxiety | + + documented in this encounter"
--- OUTSIDE RECORDS SUMMARY | ~2018-11-09 | XMS | Encounter Summary ---
Demographics + + + | Address | [address] | | | [place] [address] | + + + | Home Phone [...] Providers + +------+ + | Care Product Safety Expert Name | Role | Phone | [...]
--- OUTSIDE RECORDS SUMMARY | ~2018-11-09 | XMS | Encounter Summary ---
Demographics + + + | Address | [address] | | | [place] [address] | + + + | Home Phone [...] Team Providers + +------+ + | Care Hairspring Cutter Name | Role | Phone | [...] findings, | | 2008 | | [facility] [address] | | teaching, guidance, | | | | [facility] [address] | | and counseling | | | | Mailcode: [id number] | | | | | | [facility] | | | | | | [place], [place] | | | | | | [address] | | | | | | [phone] | | | +--------+ + + + [...]
--- OUTSIDE RECORDS SUMMARY | ~2018-11-09 | XMS | Encounter Summary ---
Demographics + + + | Address | [address] | | | [place] [address] | + + + | Home Phone [...] Team Providers + +------+ + | Care Ophthalmic Surgeon Name | Role | Phone | + [...] + + | 04/08/ | Telephone | MARK Basilio | Rosi Antonio, | | | 2012 | | Pain Center at | ANP | | | | | [facility] | | | | | | [address] | | | | | | Mail Code: [id number] | | | | | | [facility] | | | | | | and Healing, | | | | | | Floor [place], [place] | | | | | | [address] | | | | | | [phone] | | | +--------+ + + + [...]
--- OUTSIDE RECORDS SUMMARY | ~2018-11-09 | XMS | Encounter Summary ---
Demographics + + + | Address | [address] | | | [place] [address] | + + + | Home Phone [...] Team Providers + +------+ + | Care Perforator Name | Role | Phone | + [...] as of this encounter Progress Notes Interface, Computer Builder In - 01/12/2006 1:16 AM PDTCLINIC DATE: 05/24/2002 [facility]UR[facility]INIC [facility] CARE PROVIDER: Pedrito Gutierrez M.D., [place], [place]. REFERRING PROVIDER : Issac Meeks M.D., [facility] Endocrinology. REASON FOR CONSULTATION: Dr. 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 She was told she had carpal tunnel [...] use drugs. 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 She is applying for disability compensation. She lives in [facility] and is currently undergoing a [...] position sense throughout. Coordination: Fine finger movements, qnbdvw-dl-oqmg, rapid alternating movements, and mvpi-od-qipl maneuvers are intact though lesago-ds-cyjf is limited by poor depth perception due [...] Pete M.D. Neurology/Neuromuscular Fellow [employer] / HS [id number] / [id number] / [id number] / cc: Issac Meeks M.D. [facility] Endocrinology Pedrito Gutierrez M.D. [address] [place] [id number] signed by Interface, Computer Builder In at 01/12/2006 1:1 6 AM PDTdocumented in this encounter Plan of Treatment Not on filedocumented as of this encounter Visit Diagnoses Not on filedocumented in this encounter
--- OUTSIDE RECORDS SUMMARY | ~2018-11-09 | XMS | Encounter Summary ---
Demographics + + + | Address | [address] | | | [place] [address] | + + + | Home Phone [...] Author + + + | Author | [facility] | + + + | Organization | [facility] | + + + | Address [...] Providers + +------+ + | Care Commercial Marketing Specialist Name | Role | Phone | [...] | | | [facility] | [place], [place] | | | | | [address] | [address] | | | | | [address] | [phone] | | | | | [facility] | | | | | | [facility] | | | | | | [place], | | | | | | [place] [address] | | | | | | [phone] | | | +--------+---------+ + + + [...]
--- OUTSIDE RECORDS SUMMARY | ~2018-11-09 | XMS | Encounter Summary ---
Demographics + + + | Address | [address] | | | [place] [address] | + + + | Home Phone [...] Team Providers + +------+ + | Care Electrodynamicist Name | Role | Phone | + [...] | + +--------+ + + + | MA GI TRACT IMAGING, | | 05/12/2006 | | | | INTRALUMINAL | | | | | + +--------+ + + + documented in this encounter Visit Diagnoses Not on filedocumented in this encounter"
--- OUTSIDE RECORDS SUMMARY | ~2018-11-09 | XMS | Encounter Summary ---
Demographics + + + | Address | [address] | | | [place] [address] | + + + | Home Phone [...] Providers + +------+ + | Care Rn Radiation Oncology Name | Role | Phone | + [...] | Transcriptions | + + | Interface, Maintenance Of Way Clerk In - 06/05/2005 5:20 AM PST | | [id number] | | [id number] GEOVANNI Barnes | | | | Date: 12/06/2004 | | | | Attending Surgeon: Chris Padgett M.D. | | | | Health Care Assistant(s): | | | | Preoperative Diagnosis(es): | [...] | | BW / HS | | [id number] / [id number] / [id number] / | | | | | | | | | | | | Electronically signed by Chris Padgett 12-31-2004 03:02:45 PM | + + documented in this encounter Visit Diagnoses Not on filedocumented in this encounter"
--- OUTSIDE RECORDS SUMMARY | ~2018-11-09 | XMS | Encounter Summary ---
Demographics + + + | Address | [address] | | | [place] [address] | + + + | Home Phone [...] | Author | [facility] | + + + | Organization | [facility] | + + + | Address | [...] Team Providers + +------+ + | Care Payloader Machine Operator Name | Role | Phone | + +------+ + PCP | Unavailable | + +------+ + Encounter Details +--------+ + + + + | Date | Type | Department | Care Team | Description | +--------+ + + + + | 05/23/ | Procedure - | Neurophysiology | Report, Emg | Neurophysiology | | 2001 | | EMG at [address] | | | | | Transcribed | Jayce Mcrae | | | | | | Road Mailcode: | | | | | | [address] [place] | | | | | | [facility] | | | | | | [place], [place] | | | | | | [address] | | | | | | [phone] | | | +--------+ + + + [...] | + +--------+ + + + | EMG/NERVE CONDUCTION | | 05/23/2002 | | | | STUDIES,ADULT - | | | | | | NEUROLOGY | | | | | + +--------+ + + + documented in this encounter Visit Diagnoses Not on filedocumented in this encounter"
--- OUTSIDE RECORDS SUMMARY | ~2018-11-09 | XMS | Encounter Summary ---
Demographics + + + | Address | [address] | | | [place] [address] | + + + | Home Phone [...] Author + + + | Author | [facility] | + + + | Organization | [facility] | + + + | [...] Team Providers + +------+ + | Care Bran Mixer Name | Role | Phone | [...] | | | 2006 | Registratio | [address] | [address] | | | | n | [facility] Mailcode: | [place], [place] | | | | | RPB07 [place], [place] | [address] | | | | | [address] | [phone] | | | | | [phone] | | | +--------+ + + + [...] | [facility] | | | | | [facility] | | | | | | [facility]. | | | | + + + + + + + + | Specimen | + + | | + + + + + + + | Performing | Address | City/State/Zipcode | Phone Number | | Organization | | | | + + + + + | [facility] | [address] | [place] [address] | | | LABORATORY | | | [...] [facility] | | | | | | [facility],[address] | | | | | | [facility], [facility] [place] [place] | | | | | | [address] | | | | | | [phone] | | | | | | Sincere [...] [facility] | [address] | [place], [place] | | | [facility] | | [address] | | + + + + + documented in this encounter Visit Diagnoses Not on filedocumented in this encounter"
--- OUTSIDE RECORDS SUMMARY | ~2018-11-09 | XMS | Encounter Summary ---
Demographics + + + | Address | [address] | | | [place] [address] | + + + | Home Phone [...] + + + | Author | [facility] | + + + | Organization | [facility] | + + + | Address [...] Team Providers + +------+ + | Care Quote Clerk Name | Role | Phone | [...] Other (wondering | | 2008 | | Center [address] | [address] | ablout colonoscopy) | | | | [address] Mailcode: | [facility] | | | | | [address] for | [place], [place] | | | | | Health and Healing, | [address] | | | | | [address] [place] [address], | [phone] | | | | | [place] [address] | | | | | | [phone] | | | +--------+ + + + [...]
--- OUTSIDE RECORDS SUMMARY | ~2018-11-09 | XMS | Encounter Summary ---
Demographics + + + | Address | [address] | | | [place] [address] | + + + | Home Phone [...] Author + + + | Author | [facility] | + + + | Organization | [facility] | + + + | [...] Providers + +------+ + | Care Animal Laboratory Helper Name | Role | Phone | + +------+ + PCP | Unavailable | + +------+ + Encounter Details +--------+ + + + + | Date | Type | Department | Care Team | Description | +--------+ + + + + | 01/21/ | Abstract | General Surgery | Unknown . | | | 2004 | | [address] | | | | | | [facility] | | | | | | Mailcode: L223A | | | | | | Lb Doll | | | | | | Mateusz [address] [place] [address], | | | | | | [place] [address] | | | | | | [phone] | | | +--------+ + + + [...]
--- OUTSIDE RECORDS SUMMARY | ~2018-11-09 | XMS | Encounter Summary ---
Demographics + + + | Address | [address] | | | [place] [address] | + + + | Home Phone [...] Team Providers + +------+ + | Care Payroll Officer Name | Role | Phone | [...]
--- OUTSIDE RECORDS SUMMARY | ~2018-11-09 | XMS | Encounter Summary ---
Demographics + + + | Address | [address] | | | [place] [address] | + + + | Home Phone [...] Author + + + | Author | [facility] | + + + | Organization | [facility] | + + + | Address | [...] Providers + +------+ + | Care Assistant At Surgery Name | Role | Phone | + [...] | on | [facility] | [address] | | | | | [facility] | [place], [place] | | | | | [address] | [address] | | | | | [address] | [phone] | | | | | Road Mailcode: | | | | | | [id number] [facility]icians | | | | | | [place], | | | | | | [place] [address] | | | | | | [phone] | | | +--------+ + + + [...]
--- OUTSIDE RECORDS SUMMARY | ~2018-11-09 | XMS | Encounter Summary ---
Demographics + + + | Address | [address] | | | [place] [address] | + + + | Home Phone [...] Providers + +------+ + | Care Health Care Coordinator Name | Role | Phone | + +------+ + | Pedrito Gutierrez MD | PCP | | + +------+ + Reason for Referral Consultation (Routine) + + + + + + + | Status | Reason | Specialty | Diagnoses / | Referred By | Referred To | | | | | Procedures | Contact | Contact | + + + + + + + | Canceled | Specialty | Gastroenterol | Diagnoses | Lorin, | Alaina | | | Services | ogy | Chronic | MD Chris | MD Rohan | | | Required | | abdominal | [address] | Digestive | | | | | pain | [address] | [facility] [address] | | | | | Procedures | Clementina Peterson | [address] | | | | | CONSULT TO | [place] | | | | | GI PROCEDURE | [address] | [address] | | | | | UNIT: | Phone: | | | | | | COLONOSCOPY | [phone] | | | | | | | Fax: | | | | | | | [phone] | | + + + + + + + Reason for Visit + + + | Reason | Comments | + + + | Follow-up visit | | + + + Encounter Details +--------+---------+ + + + | Date | Type | Department | Care Team | Description | +--------+---------+ + + + | 01/22/ | Office | General Surgery | Alhaji Padgettifford, | Chronic Abdominal | | 2005 | Visit | Bariatric [address] | MD [address]or[address] | Pain (Primary Dx) | | | | [address]rae | [facility] | | | | | Road Mailcode: | [place], [place] | | | | | L[address]A Physicians | [address] | | | | | [address] | [phone] | | | | | [place], [place] | | | | | | [address] | | | | | | [phone] | | | +--------+---------+ + + + [...] + + + | Blood Pressure | 130/84 | 01/22/2006 2:47 PM | | | | | PDT | | + + + + + | Pulse | 80 | 01/22/2006 2:47 PM | | | | | PDT | | + + + + + | Temperature | 37.3 C (99.1 F) | 01/22/2006 1:44 PM | | | | | PDT | | + + + + + | Respiratory Rate | 20 | 01/22/2006 2:47 PM | | | | | PDT | | + + + + + | Oxygen Saturation | - | - | | + + + + + | Inhaled Oxygen | - | - | | | Concentration | | | | + + + + + | Weight | 126.2 kg (278 lb 3.5 | 01/22/2006 2:47 PM | | | | oz) | PDT | | + + + + + | Height | 157.5 cm (5' 2") | 01/22/2006 2:47 PM | | | | | PDT | | + + + + + | Body Mass Index | 50.89 | 01/22/2006 2:47 PM | | | | | PDT | | + + + + + documented in this encounter Progress Notes Kameron Harding Md - 01/22/2006 3:20 PM PDTEstablished patient evaluation: SUBJECTIVE: Belinda Meehan is a 45 year old woman who returns to bariatric surgery clinic for follow up. She is approximately 2 years s/p lap gastric bypass and abdominoplasty. She continues to complain of chronic abdominal pain. Ms. Meehan has been seen in the [facility] emergency dept twice in the last month for sudden onset abdominal pain. Her workup and im aging studies were all negative. RUQ ultrasound showed normal liver, pancreas, and common b ile duct. Abdominal series showed mild wall thickening of small bowel segment. CT scan of the abdomen and pelvis were normal. Ms. Meehan reports her pain is intermittent in nature and is circumferential. She had a mild increase in her ALT/AST to 114/103. Her current t consists of yogurt, popsicles, bananas, peaches. OBJECTIVE: BP 130/84 | Pulse 80 | Temp (Src) 99.1 (Oral) | Resp 20 | Ht 5' 2" (1.58m) | Wt 278 lbs 3.5 oz (126.2kg) General: alert, oriented, no acute distress Abdomen: soft, nondistended, tenderness to palpation ASSESSMENT: 45 year old woman with chronic abdominal pain after laparoscopic letitia-en-Y gastric bypass w ith no clear etiology. PLAN: We will check Ms. Meehan' vitamin D level, as well as refill her oxycodone prescription. She will follow up with us in 6 months. We have also referred the patient to have an outpat ient colonoscopy as she has a family history of colon CA. The patient was seen and examined with Dr. Jose L Padgett who agrees with the above assessme nt and plan. documented in this encounter Plan of Treatment Not on filedocumented as of this encounter Results VITAMIN D, 125-DIHYDROXY (01/22/2006 3:28 PM PDT) + + + + + + | Component | Value | Ref Range | Performed | Pathologist | | | | | At | Signature | + + + + + + | VIT D, | 35Comment: Testing | 15 - 75 pg/mL | | | | 1,25-DIHYDR | performed by [facility] | | | | | [facility] | Laboratory. | | | | + + + + + + + + | Specimen | + + | | + + + + + + + | Performing | Address | City/State/Zipcode | Phone Number | | Organization | | | | + + + + + | [facility] | [address] | [place], [place] | | | [facility] | | [address] | | + + + + + documented in this encounter Visit Diagnoses + + | Diagnosis | + + | Chronic abdominal pain - Primary Abdominal pain, unspecified site | + + documented in this encounter
--- OUTSIDE RECORDS SUMMARY | ~2018-11-09 | XMS | Encounter Summary ---
Demographics + + + | Address | [address] | | | [place] [address] | + + + | Home Phone [...] Providers + +------+ + | Care Loss Prevention Guard Name | Role | Phone | + +------+ + | Maria Esther Cintron MD | PCP | Unavailable | + +------+ + Encounter Details +--------+ + + + + | Date | Type | Department | Care Team | Description | +--------+ + + + + | 08/24/ | Abstract | Digestive Health | Patricia Banegas, | | | 2011 | | [place] at [facility] [address] | FASTENER TECHNOLOGIST [address] | | | | | [address] | [facility] [address] | | | | | Mailcode: Center | [place], [place] | | | | | for Health and | [address] | | | | | [facility], [facility] 2 | [phone] | | | | | [place], [place] | | | | | | [address] | | | | | | [phone] | | | +--------+ + + + [...]
--- OUTSIDE RECORDS SUMMARY | ~2018-11-09 | XMS | Encounter Summary ---
Demographics + + + | Address | [address] | | | [place] [address] | + + + | Home Phone [...] Team Providers + +------+ + | Care Audio Visual Engineer Name | Role | Phone | + +------+ + | Pedriot Gutierrez MD | PCP | | + [...] + + | 06/21/ | Office | [facility] | Delfina Molina, | LBP (Low Back Pain) | | 2008 | Visit | Pain Center at | ANP | (Primary Dx); Spinal | | | | [facility] | | Fusion Lumbar spine | | | | [address] | | ; Hx Arthroplasty | | | | Mail Code: CH15P | | of both Knees; | | | | Center for [facility] | | Fibromyalgia | | | | and | | syndrome 729.1; | | | | Floor [place], [place] | | Abdominal Pain, | | | | [address] | | dumping syndrome Hx | | | | [phone] | | of gastric bypass; | | [...] Belinda Meehan is a 48 y.o. female [facility] Pain Center Return Visit Chief [...] management plan of care. Since prior visit 2/29/09 Belinda reports being in more pain in the lower back and all over, she states "where am I not having pain". . She does have new pain complaints on this visit. She reported that she is healing well from her back surgery L5 S1 fusion with richard ne spur removal on 05/15/2008 Dr. Betty Thomas MD [facility], after having problems with nu mbness, burning [...] a migraine sp ecialist this week in [place], Dr Lucio Nichols. Next area of chronic [...] drawing has be completed, which I reviewed. [facility] Brief Pain Inventory: (ten= worst possible [...] 3. Mental Health care: Dr Ogden psychology [facility] last visit today . She [...] 300 mg) by oral route once daily mltjumehew-ierloeeazvjbi-oeqnqahs (FIORICET) 50-325-40 mg Oral Tablet take 2 [...] Mayra Padgett wt 278 01/18 Paniculectomy Hx lumbar fusion 05/2008 L1-A1guwxsy with bone spur removals Family History Problem [...] psychologist when ever sh e comes to [place] for medical care. She has a strong [...] with any concerns or questions. DELFINA MOLINA [facility] Mail code CH 4P [facility] [address] [place] [address] Ty Mendez - 12/2008 9:11 AM PSTCMA History: PMH/PSH/SH/FH review Patient had lumbar fusion in May 22. She also reports tooth abcess. She has script for an tibiotic tx waiting for her in [place]. 1. Has your pain changed from your [...]
--- OUTSIDE RECORDS SUMMARY | ~2018-11-09 | XMS | Encounter Summary ---
Demographics + + + | Address | [address] | | | [place] [address] | + + + | Home Phone [...] Author + + + | Author | [facility] | + + + | Organization | [facility] | + + + | Address [...] Team Providers + +------+ + | Care Electrical Wirer Name | Role | Phone | + [...] | 2007 | | Center [address] | [address] | stool order); | | | | [address] Mailcode: | [facility] | Diarrhea | | | | [address] for | [place], [place] | | | | | Health and [facility], | [address] | | | | | [address] [place] [address], | [phone] | | | | | [place] [address] | | | | | | [phone] | | | +--------+ + + + [...]
--- OUTSIDE RECORDS SUMMARY | ~2018-11-09 | XMS | Encounter Summary ---
Demographics + + + | Address | [address] | | | [place] [address] | + + + | Home Phone [...] + + + | Author | [facility] | + + + | Organization | [facility] | + + + | [...] Team Providers + +------+ + | Care Tomato Pulper Operator Name | Role | Phone | + +------+ + | Sulaiman Carrera MD | PCP | Unavailable | + +------+ + Encounter Details +--------+ + + + + | Date | Type | Department | Care Team | Description | +--------+ + + + + | 08/26/ | Ancillary | Registration [address] | | | | 2006 | [address] | | | | | n | [facility] Mailcode: | | | | | | RPB07 [place], [place] | | | | | | [address] | | | | | | [phone] | | | +--------+ + + + [...]
--- OUTSIDE RECORDS SUMMARY | ~2018-11-09 | XMS | Encounter Summary ---
Demographics + + + | Address | [address] | | | [place] [address] | + + + | Home Phone [...] Author + + + | Author | [facility] | + + + | Organization | [facility] | + + + | [...] Providers + +------+ + | Care Film Masker Name | Role | Phone | + +------+ + | Sulaiman Carrera MD | PCP | Unavailable | + +------+ + Encounter Details +--------+ + + + + | Date | Type | Department | Care Team | Description | +--------+ + + + + | 06/30/ | Telephone | Pain Center at [facility] | Lukasz Ogden, | | | 2013 | | 15th Floor [address] | PhD [address] | | | | | [address] Mail | [place], [place] | | | | | Code: [facility] Center | [address] | | | | | for Health and | [phone] | | | | | Healing, 15th Floor | | | | | | [place], [place] | | | | | | [address] | | | | | | [phone] | | | +--------+ + + + [...]
--- OUTSIDE RECORDS SUMMARY | ~2018-11-09 | XMS | Encounter Summary ---
Demographics + + + | Address | [address] | | | [place] [address] | + + + | Home Phone [...] + +------+ + | Care Director Of Finance Name | Role | Phone | + [...] | teaching, guidance, | | | | [facility] [address] | | and counseling | | | | Mailcode: PV430 | | | | | | Physician's [place] | | | | | | [place], [place] | | | | | | [address] | | | | | | [phone] | | | +--------+ + + + [...]
--- OUTSIDE RECORDS SUMMARY | ~2018-11-09 | XMS | Encounter Summary ---
Demographics + + + | Address | [address] | | | [place] [address] | + + + | Home Phone [...] Providers + +------+ + | Care Pole Peeling Machine Operator Helper Name | Role | [...] as of this encounter Discharge Summaries Interface, Sap Pp Consultant In - 08/30/2005 2:07 AM PST [id number] GEOVANNI Barnes Admission Date: 07/24/2005 Discharge Date: [...] for an appointment. Joanna Ritchie M.D. / [id number] / [id number] / [id number] / Electronically signed by Chris Padgett 08-29-2005 03:28:23 PM documented i n this encounter Plan of Treatment Not on filedocumented as of this encounter Visit Diagnoses Not on filedocumented in this encounter"
--- OUTSIDE RECORDS SUMMARY | ~2018-11-09 | XMS | Encounter Summary ---
Demographics + + + | Address | [address] | | | [place] [address] | + + + | Home Phone | | + + + | Preferred Language | Unknown | + + + | Marital Status | | + + + | Spiritism Affiliation | 1001 | + + + | Race | Unknown | + + + | Ethnic Group | Unknown | + + + Author + + + | Author | [facility] | | | and Jairana | + + + | Organization | [facility] | | | and [...] Team Providers + +------+ + | Care Support Associate Name | Role | Phone | [...] + + | 09/04/ | Refill | [facility] | Alanis, | Medication Refill | | 2018 | | MEDICINE [address] [place] [address] | MD [place] | | | | | [facility] | [address] [place] [address] | | | | | [place] [address] | [place] [address] | | | | | [phone] | [phone] | | | | | | | [...] | | | | | [place] [address] | | | | | | [phone] | | | | | | | | +--------+---------+ + + + documented as of this encounter Visit Diagnoses Not on filedocumented in this encounter"
--- OUTSIDE RECORDS SUMMARY | ~2018-11-09 | XMS | Encounter Summary ---
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 Local PT [...] documented in this encounter Progress Notes Delfina oMlina - 03/03/2008 10:36 AM PDTFormatting of this note might be different from th jennifer gomez. 03/03/2008 Belinda Meehan is a 48 y.o. female [facility] Pain Center Return Visit Chief [...] be ing reviewed by Dr Constantino SHEEHAN acute care assistant. MRI of the brain and it was normal A Brief Pain Inventory and a pain drawing has be completed, which I reviewed. [facility] Brief Pain Inventory: (ten= worst possible [...] Ogden PhD TPI every 5-6 months with [facility] Rheumatology Hilda Saenz Review of Systems: [...] history, fam bijan history, or social history. [facility] Encorinology PRASHANT DE LA O ACNP ThuNovember 12, 2007 Assessment: 1) Hypothyroidism [...] be contributing to her hypotension. She needs g vera a PCP. We will continue to discuss with her options at [facility] with, hopefully, coordinatio n of services. [...] 300 mg) by oral route once daily mykpiorqpf-eoiqelazzdvaf-rivprshf (FIORICET) 50-325-40 mg Oral Tablet take 2 [...] MILD DISK BULGE. Transcribed By: Armaan Rivera : [id number] : 1442 Approved By: Radiologist: Physical Examination: [...] with any concerns or questions. DELFINA MOLINA [facility] Mail code CH 4P [place] [facility] and [address] [address] Kristin Ailyn L - 03/03/20 08 10:24 AM PDTCMKatie History: [...]
--- OUTSIDE RECORDS SUMMARY | ~2018-11-09 | XMS | Encounter Summary ---
Demographics + + + | Address | [address] | | | [place] [address] | + + + | Home Phone [...] Team Providers + +------+ + | Care Passenger Service Supervisor Name | Role | Phone | [...] | | | | | (degenerativ | [place] | [place] | | | | | e joint | [address] | [address] | | | | | disease) of | | Phone: | | | | | knee Knee | | [phone] | | | | | pain Major | | Fax: | | | | | depressive | | [phone] | | | | | disorder, | [...] + + + + | 04/20/ | Physical Therapy Professor | [facility] | Miranda Lambert, | LBP (Low Back Pain); | | 2006 | | Pain Center at | ANP | 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
--- OUTSIDE RECORDS SUMMARY | ~2018-11-09 | XMS | Encounter Summary ---
Demographics + + + | Address | [address] | | | [place] [address] | + + + | Home Phone [...] Team Providers + +------+ + | Care Quality Control Technician Name | Role | Phone [...]
--- OUTSIDE RECORDS SUMMARY | ~2018-11-09 | XMS | Encounter Summary ---
Demographics + + + | Address | [address] | | | [place] [address] | + + + | Home Phone [...] + + + | Author | [facility] | + + + | Organization | [facility] | + + + | Address [...] Team Providers + +------+ + | Care Panel Saw Operator Name | Role | Phone [...] as of this encounter Progress Notes Interface, Buggy Driver In - 01/12/2005 6:20 AM PDT JenniferBelinda garner [id number] MED REC NUMBER: [id number] NAME : Belinda Meehan DATE : 1960 DISCHARGE ASSESSMENT AND CASE MANAGEMENT NOTES Chart Reviewed: 2004-12-04 15:29:00 Fruit Or Nut Farmer: Lou Jordan RN Preadmission living situation: family If facilty, name: Additional needs assessment: Case Management Initial Assessment and Ongoing Notes: 12/04/2004 15:29 Rec'd referral from IR printout. Pt presenti jen for panniculectomy per Dr. Chris Padgett 12/06/2004. ----- ------- Living Situation: Pt lives w/ her son, Sree in [place], [place]. Pt also has a caregiver from [facility] come in for 8-9 hours per day when her son is not home. Transportation: Pat w/ [facility] will take pt home (H) (C). Home Health: Pt has an RN from [facility] visit once a month for an assesment (H) or (C). Medical Equipment: Pt states that she has forearm crutches, a shower chair, and is working on getting hand bars installed into her shower. ---- Co-Morbidities: Panniculitis, s/p gastric bypass, arthritis, asthma, NIDDM, GERD, HTN, and sleep apnea. ------ Providers: PCP is Dr. Pedrito Gutierrez in [facility] and Dr. William Meeks [facility] metabolic disorder clinic. Narrative: Pt asked [...] or concerns, contact information given. Jean NUR [id number] documented i n this encounter Plan of Treatment Not on filedocumented as of this encounter Visit Diagnoses Not on filedocumented in this encounter"
--- OUTSIDE RECORDS SUMMARY | ~2018-11-09 | XMS | Encounter Summary ---
Demographics + + + | Address | [address] | | | [place] [address] | + + + | Home Phone [...] + + + | Author | [facility] | + + + | Organization | [facility] | + + + [...] 2008 | | [facility] | [address] | Specialist | | | | [facility] | [place], [place] | | | | | [place] [address] | [address] | | | | | [address] [place] | [phone] | | | | | Road Mailcode: | | | | | | [id number] [facility] | | | | | | [place], | | | | | | [place] [address] | | | | | | [phone] | | | +--------+ + + + [...]
--- OUTSIDE RECORDS SUMMARY | ~2018-11-09 | XMS | Encounter Summary ---
Demographics + + + | Address | [address] | | | [place] [address] | + + + | Home Phone [...] + + + | Author | [facility] | + + + | Organization | [facility] | + + + | Address | [...] Team Providers + +------+ + | Care Preparation Supervisor Canning Name | Role | Phone | + [...] | | | | | | | [id number] | | | | | | | [address] | | | | | | | [facility] | | | | | | | [place], [place] | | | | | | | [address] | | | | | | | Phone: | | | | | | | [phone] | | | | | | | Fax: | | | | | | | [phone] | +--------+--------+ + + + + Encounter Details +--------+ + + + + | Date | Type | Department | Care Team | Description | +--------+ + + + + | 02/22/ | Hospital | [facility] [address] | Hai [place]os, | | | 2008 | Encounter | [address] | | | | | | [address] | | | | | | [place], | | | | | | [place] [address] | | | | | | [phone] | | | +--------+ + + + [...] Brief Hospital Course: Patient was admitted to [facility] short stay surgery. Patient was taken to [...] business hours at or page the orthopedist sr solutions consultant after regular business hours at [phone]. If you have any of the following: [...] at . Follow Up Tests: (Tests at [facility] must be entered into [employer]) none Condition On Discharge: stable Vital Signs [...] Brief Hospital Course: Patient was admitted to [facility] short stay surgery. Patient was taken to [...] business hours at or page the orthopedist sr solutions consultant after regular business hours at [phone]. If you have any of the following: [...] at . Follow Up Tests: (Tests at [facility] must be entered into Epic) none Condition [...] Mode of Transportation: Car Accompanied by: Family/Responsible Libertarian Discharge Nurse: LONI KOWALSKI RN Date: 02/22/2009 [...] + + + + + | [facility] | [address] | [place] [address] | | | PATHOLOGY | [address] [...] + + + + + | [facility] | [address] | [place] [address] | | | PATHOLOGY | [address] [...] Surgical | | | | | | | | | | | | Smear..............: [...] | | | | | performed at [place] | | | | | | [facility] | | | | | | Laboratory. | | | | + + + + + + + + | Specimen | + + | | + + + + + + + | Performing | Address | City/State/Zipcode | Phone Number | | Organization | | | | + + + + + | [facility] | [address] | [place] [address] | | | PATHOLOGY | [address] [...] + | [facility] | [address] | [place] [address] | | | PATHOLOGY | [address] [...] + + | CULTURE | Acid Fast | | | | | RESULT | Bacilli Culture | | | | | | | | | | | | Source.............: | | | | | | 1) left scapular | | | | | | lesion, surgical | | | | | | Surgical RLB FA | | | | | | Stain...........: | | | | | | AFB NOT detected. | | | | | | Preliminary | | | | | | 1......: Acid Fast | | | | | | Bacilli NOT detected at | | | | | | 4 weeks. Final | | | | | | Report.......: Acid | | | | | | Fast Bacilli NOT | | | | | | detected at 6 | | | | | | weeks.Comment: Test | | | | | | performed at [place] | | | | | | [facility] | | | | | | Laboratory | | | | + + + + + + + + | Specimen | + + | | + + + + + + + | Performing | Address | City/State/Zipcode | Phone Number | | Organization | | | | + + + + + | [facility] | [address] | [place] [address] | | | PATHOLOGY | [address] [...] + + + + + | [facility] | [address] | [place] [address] | | | PATHOLOGY | [address] [...] | | | | | | Nocardia | | | | | | Surgical RLB Gram | | | | | | Stain...........: No | | | | | | Squamous epithelial | | | | | | cells | | | | | | | | | | | | | | | | | | No PMN's | | | | | | | | | | | | | | | | | | No organisms | | | | | | seen. Culture: | | | | | | Preliminary | | | | | | Report: No growth after | | | | | | 3 days. No | | | | | | Brucella isolated | | | | | | No anaerobes | | | | | | isolated Final | | | | | | Report | | | | | | Resulted: | | | | | | 16/ | | | | | | RLB | | | | | | ([facility] [address] [facility]) | | | | | | [facility] | | | | | | [facility] | | | | | | [address] | | | | | | [address] | | | | | | [place] | | | | | | , [place] [address] | | | | + + + + + + + + | Specimen | + + | | + + + + + + + | Performing | Address | City/State/Zipcode | Phone Number | | Organization | | | | + + + + + | [facility] | [address] | [place] [address] | | | PATHOLOGY | [address] | | | + + + + + ANESTHESIA/SEDATION (02/22/2009 12:00 AM PDT) + + + | Narrative | Performed At | + + + | | | + + + + + | Procedure Note | + + | Vilma Gibbons - 02/22/2009 12:00 AM PDT | | | + + OPERATION RECORD (02/22/2009 12:00 AM PDT) + + + | Narrative | Performed At | + + + | [id number] | | | [id number] | | | [phone] [address] | | | [place] [id number] | | | Date: 02/22/2009 Attending | | | Surgeon: Hai Hoyos MD | | | Boiling House Hand(s): Donna Robertson | | | Shantel Clancy Preoperative Diagnosis(es): Left symptomatic | | | scapula lesion. Postoperative Diagnosis(es): Left symptomatic | | | scapula lesion. Procedures Performed: 1. Curettage and | | | bone grafting of the left scapular lesion. 2. Open biopsy, | | | left scapular lesion. Donna Clancy served as my | | | marketing assistant because no other qualified help was available. | | | Anesthesia: General plus local. EBL: Minimal. | | | Complications: None. Specimens: Left scapular lesion for | | | frozen and permanent section as well as cultures. Implants: | | | 1 cc DBX. Findings: Frozen consistent with an osteoblastoma. | | | Drains: None. Disposition: The patient was successfully | | | awoken and transferred to PACU in stable condition. | | | Postoperative Plan: The patient to be weightbearing as tolerated | | | about the left upper extremity without restrictions. She is to | | | be discharged home for the PACU today and follow up with me in 2 | | | weeks for wound check and to review final pathology. She may remove | | | her dressing in 2 days. She may shower. She is not to | | | submerge the incision. Indications: Ms. Meehan is a | | | 49-year-old woman who presented to me with complaints of | | | significant pain about the posterior aspect of the left shoulder at | | | the area of the scapula. The patient was discretely tender over | | | this area. Radiographic imaging demonstrated a lesion within the | | | scapular spine. This was reviewed with the radiologist, and this | | | was felt to be too large to be amenable to radiofrequency | | | ablation. Therefore, my recommendation is to proceed with open | | | biopsy, curettage, and bone grafting if this was found to be | | | consistent with a benign lesion. All the risks and benefits of | | | this procedure were explained to the patient. All questions were | | | answered and informed consent was obtained. Procedure: The | | | patient came to the operating room on 02/22/09. In the | | | preoperative holding area, the patient was met and the operative | | | site, which was the left upper extremity, was then signed by | | | me. The patient was then transferred to the operative room | | | suite, placed on the operating table in supine position, and an | | | airway was established. At this point, she was then rolled into | | | the lateral decubitus position with the left side up. An | | | axillary roll was then placed in the ideal position. The down leg | | | was then well padded. At this point, the left upper extremity was | | | then prepped and draped in the usual sterile fashion. A timeout | | | was then taken to verify the patient, site, and | | | procedure. Preoperative antibiotics were not administered | | | because I did not want to compromise my intraoperative | | | cultures. Vancomycin was administered after cultures were | | | obtained. Open biopsy of the left scapular lesion: At this | | | point, I then outlined the scapular spine about the posterior | | | aspect of the scapula. I then used a #10 blade in order to | | | incise down to the dermis and subcutaneous tissues until I reached | | | the subcutaneous border of the scapular spine. I then flushed | | | the periosteum directly overlying the scapular spine. This was | | | then dissected proximally and distally, which gave me direct | | | visualization about the scapular spine. I then used a TPS shiela in | | | order to perform my cortical perforation at the level of this | | | lesion, which was previously visualized on the preoperative CT | | | scan. At this point, once I created a cortical perforation over | | | the lesion, I then used curettes in order to obtain intralesional | | | tissue from this lesion. At this point, this tissue was then | | | sent to Pathology as a frozen section. I also obtained a portion | | | of tissue and sent it as cultures, which included aerobic, | | | anaerobic, AFB, fungal, Nocardia, and Brucella. At this point, I | | | then awaited my frozen section results. This was found to be | | | consistent with osteoblastoma. There was no evidence of | | | malignancy. I therefore proceeded with curettage and bone | | | grafting. Curettaging and bone grafting of the left scapular | | | lesion: At this point, I then performed an extended intralesional | | | curettage. This was done by first taking the TPS shiela and then | | | creating a large cortical perforation about the posterior aspect of | | | the scapular spine, so I was able to visualize the entirety of the | | | lesion. Once this was done, I then used a curette in order to | | | curettage intralesional, may be entirety of the lesion. I then | | | again used a TPS shiela in order to meticulously extend my | | | intralesional curettage circumferentially around the entirety of | | | the lesion. Once this was done, the wound was then copiously | | | irrigated. Meticulous hemostasis was then obtained. I then | | | placed 1 cc of DBX into the scapular lesion in order to fill the | | | void. At this point, I [...] | | aforementioned. MD ARTIS Wei / [id number] / | | | [id number] / [id number] / | | + + + + + | Procedure Note | + + | Hai Hoyos MD - 02/22/2009 12:00 AM PDT [id number] | | [id number] [place] | | [id number] Date: 02/22/2009 Attending Surgeon: Hai | | MD Romain [facility] Hand(s): Shantel Whipple Preoperative | | Diagnosis(es):Left symptomatic scapula lesion. Postoperative Diagnosis(es):Left | | symptomatic scapula lesion. Procedures Performed:1. Curettage and bone grafting of | | the left scapular lesion.2. Open biopsy, left scapular lesion. Donna Clancy | | served as my marketing assistant because no other qualified help wasavailable. [...] plan is as aforementioned. 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 | | | | | | Case seen by:Tiesha Gonzáles | | | | | | Joanna Brown/Surgical | | | | | | Pathology FellowYasmin | | | | | | Kendall, | | | | | | M.DYudy/PathologistT:02/26/ | | | | | | 09/rdl | | | | | | Frozen Section | | | | | | Diagnosis:Left scapular | | | | | | lesion (specimen | | | | | | B): - Benign | | | | | | bone-forming | | | | | | neoplasm Frozen | | | | | | section diagnosis | | | | | | confirmed by: Jatinder | | | | | | Ada Mccarthy M.D./Resident | | | | | | Demetrice Argueat, | | | | | | M.DYudy/Pathologist | | | | | | Clinical [...] | | | | | (initials BM) | | | | | | and: A: Left | | | | | | scapular | | | | | | [...] | | | | | | submitted. | | | | | | B: Left scapular | | | | | | lesion (FS): Received | | | | | | are multiple focally | | | | | | firm,hemorrhagic purple | | | | | | fragments of bone | | | | | | measuring 1.2 x 0.8 x | | | | | | 0.4 cm | | | | | | inaggregate. The | | | | | | frozen section residue | | | | | | consists of the entire | | | | | | specimenwhich is | | | | | | submitted in | | | | | | toto. Cassette | | | | | | Index:A: Left | | | | | | scapular lesion:A1, | | | | | | [...] | | | | | | Rendering | | | | | | Diagnostician: Yasmin | | | | | | Kendall | | | | | | Shamir | | | | | | mary carmen Signed 02/28/2009 | | | | + + + + + + + + | Specimen | + + | Other | + + + + + + + | Performing | Address | City/State/Zipcode | Phone Number | | Organization | | | | + + + + + | [facility] | [facility] | [place] [address] | | | PATHOLOGY | [address] | | | + + + + + | [facility] DEPARTMENT OF | [address] [facility] | [place] [address] | | | PATHOLOGY | [address] [...]
--- OUTSIDE RECORDS SUMMARY | ~2018-11-09 | XMS | Encounter Summary ---
Demographics + + + | Address | [address] | | | [place] [address] | + + + | Home Phone [...] Author + + + | Author | [facility] | + + + | Organization | [facility] | + + + | [...] Providers + +------+ + | Care Sales Ledger Administrator Name | Role | Phone | + +------+ + | Pedrito Gutierrez MD | PCP | | + +------+ + Encounter Details +--------+ + + + + | Date | Type | Department | Care Team | Description | +--------+ + + + + | 02/21/ | Hospital | Cardiac | Sj, Car Ecg Tech | | | 2008 | Encounter | Non-Invasive Testing | [address] | | | | | at [facility] | [facility] | | | | | [address] | [place] [address] | | | | | [facility] | | | | | | Mailcode: [id number] [address] | | | | | | Naeem [place] | | | | | | [place], | | | | | | [place] [address] | | | | | | [phone] | | | +--------+ + + + [...]
--- OUTSIDE RECORDS SUMMARY | ~2018-11-09 | XMS | Clinical Summary ---
Demographics + + + | Address | [address] | | | [place] [address] | + + + | Home Phone [...] Team Providers + +------+ + | Care Mohel Name | Role | Phone | + +------+ + | Sulaiman Carrera MD | PP | Unavailable | + +------+ + Source Comments [facility] Allergies + + + + + [...] + + + + + + | Ovrxjjp-Dttknhqocr-Q | | | 08/29/19 | Balance problems [...] in | | | | | | [facility]) | | | | | | made [...] gram | before meals. | | | / | | e | | Oral Tablet [...] | imbalances, sleep apnea, neck pain, medication [id number] | + + + + + | [...] + + + + + | Pneumococcal (Adult) | | | | | (1 of 1 - PPSV23) | 8 | | | + + + + + | Influenza (Flu) | | 02/04/2017 | | | vaccination (Season | 9 | | | | Ended) | | | | + + + [...] | B | | sent | | [place], [place] | | | | | | | | [address] | | + +--------+ +--------+ + +--------+ | [employer] | [employer] | xxxxxxxx | | | | Medica [...] | 1960 | [phone] | [place] [address] | | | bijan | | | 3 (Home) | | + +--------+ +--------+ + + | Belinda Meehan | Medica | Self | [birth year] | [address] | | | re | | 9 | [phone] | [place] [address] | | | Recurr | | | 3 (Home) | | | | ing | | | | | + +--------+ +--------+ + + Advance Directives + + + + + | Type | Date Recorded | Patient | Explanation | | | | Audio Visual Design Engineer | | + + + + + | Advance | 11/19/2004 12:00 | | ADVANCE DIRECTIVE | | Directives and | AM | | | | Living Will | | | | + + + + + | Power of | | | | | Residential Green Building Designer | | | | + + + [...]
--- OUTSIDE RECORDS SUMMARY | ~2018-11-09 | XMS | Encounter Summary ---
Demographics + + + | Address | [address] | | | [place] [address] | + + + | Home Phone [...] Team Providers + +------+ + | Care Hansard Reporter Name | Role | Phone | [...] | Pain | Diagnoses | Miracle, | Moffat, | | | | Management | LBP (low | NIHARIKA Jean | Lukasz Rhodes, PhD | | | | | back pain) | [address] | | | | | DJD | [address] | [address] | | | | | (degenerativ | [place], [place] | [place], [place] | | | | | e joint | [address] | [address] | | | | | disease) of | | Phone: | | | | | knee Knee | | [phone] | | | | | pain Major | | Fax: | | | | | depressive | | [phone] | | | | | disorder, | [...] / | Office | [facility] at [facility] | Lukasz Charles, | Major Depressive | | 2007 | Visit | 15th Floor [address] | PhD [address] | Disorder, Recurrent | | | | [address] Mail | Ave [place], [place] | Episode, Moderate | | | | Code: [facility] Center | [address] | ([facility]); LBP (Low Back | | | | for Health and | [phone] | Pain); Fibromyalgia | | | | Healing, 15th Floor | | syndrome 729.1; | | | | [place], [place] | | Adjustment Disorder | | | | [address] | | with Anxiety; | | | | [phone] | | Bilateral Knee Pain; | | [...] skills during intense pain episode s. Diagnosis: Sammamish I: 1. (296.32) Major depressive disorder, recurrent, moderate. 2. (309.24) Adjustment disorder with anxiety. 3. 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 Sammamish II: Deferred Sammamish III: abdominal pain, migraine headache, low back pain. Sammamish IV: low finances Sammamish V: GAF 55-60 Plan: return with next medical follow-up appointment. Check mood, knee surgery, relaxatio n, activity, distraction. Continue cognitive/behavioral therapy. Total time spent with patient was approximately 45 minutes. LUKASZ CHARLES [facility] [address] [facility], [address] [place] [address] documented in this encount er Plan of Treatment + + +--------+ + + | Name | Type | Priori | Associated Diagnoses | Order Schedule | | | | ty | | | + + +--------+ + + | [facility], | Procedures | Routin | Major Depressive | Ordered: 08/13/2007 | | OFFICE (14-87) | | e | Disorder, Recurrent | | | | | | Episode, Moderate | | | | | | ([facility]) LBP (Low Back | | | | [...]
--- OUTSIDE RECORDS SUMMARY | ~2018-11-09 | XMS | Encounter Summary ---
Demographics + + + | Address | [address] | | | [place] [address] | + + + | Home Phone [...] Team Providers + +------+ + | Care Scale Installer Name | Role | Phone | [...] Description | +--------+--------+ + + + | 03// | Refill | Kraig Turner | Beto Meeks MD | Refill Request | | 2010 | | [facility] | [address] | | | | | [facility] | [place], [place] | | | | | [place] [address] | [address] | | | | | [address] | [phone] | | | | | Road Mailcode: | | | | | | [id number] [facility] | | | | | | [place], | | | | | | [place] [address] | | | | | | [phone] | | | +--------+--------+ + + + [...]
--- OUTSIDE RECORDS SUMMARY | ~2018-11-09 | XMS | Encounter Summary ---
[...] Team Providers + +------+ + | Care Long Line Teamster Name | Role | Phone | + +------+ + | Pedrito Gutierrez MD | PCP | | + +------+ + Encounter Details +--------+ + + + + | Date | Type | Department | Care Team | Description | +--------+ + + + + | 03/08/ | Telephone | Orthopaedics at | Hai Hoyos, | | | 2008 | | PPV [address] MD | | | | | [facility] | | | | | | Mailcode: [id number] | | | | | | Physician's [place] | | | | | | [place], [place] | | | | | | [address] | | | | | | [phone] | | | +--------+ + + + [...]
--- OUTSIDE RECORDS SUMMARY | ~2018-11-09 | XMS | Encounter Summary ---
Demographics + + + | Address | [address] | | | [place] [address] | + + + | Home Phone [...] Author + + + | Author | [facility] | + + + | Organization | [facility] | + + + | [...] Team Providers + +------+ + | Care Evp Operations Name | Role | Phone | + [...] | +--------+ + + + + | 11/10/ | Telephone | Kraig Turner | Beto Meeks MD | Letter From | | 2008 | | [facility] | [address] | Specialist | | | | [facility] | [place], [place] | | | | | [place] [address] | [address] | | | | | [address] [place] | [phone] | | | | | Road Mailcode: | | | | | | [id number] Physicians | | | | | | [place], | | | | | | [place] [address] | | | | | | [phone] | | | +--------+ + + + [...]
--- OUTSIDE RECORDS SUMMARY | ~2018-11-09 | XMS | Encounter Summary ---
Demographics + + + | Address | [address] | | | [place] [address] | + + + | Home Phone [...] + + + | Author | [facility] | + + + | Organization | [facility] | + + + | Address [...] Team Providers + +------+ + | Care Industrial Safety And Health Specialist Name | Role | Phone | + +------+ + | Pedrito Gutierrez MD | PCP | | + +------+ + Reason for Visit + + + | Reason | Comments | + + + | Back pain | leg pain | + + + Encounter Details +--------+---------+ + + + | Date | Type | Department | Care Team | Description | +--------+---------+ + + + | 09/09/ | Office | [facility] | Delfina Molina, | Spondylosis with | | 2006 | Visit | Pain Center at | ANP | Myelopathy, Lumbar | | | | [facility] | | Region; DJD | | | | [address] | | (Degenerative Joint | | | | Mail Code: CH15P | | Disease) of Left | | | | [facility] | | Knee; Fibromyalgia | | | | and Healing, | | syndrome 729.1; | | | | Floor [place], [place] | | Major Depressive | | | | [address] | | Disorder, Recurrent | | | | [phone] | | Episode, Moderate | | | | | | ([facility]); Adjustment | | | | | | [...] + + + | Blood Pressure | 130/88 | 09/09/2006 12:25 PM | | | | | PDT | | + + + + + | Pulse | 78 | 09/09/2006 12:25 PM | | | | | PDT | | + + + + + | Temperature | 36.6 C (97.8 F) | 09/09/2006 12:25 PM | | | | | PDT | | + + + + + | Respiratory Rate | 16 | 09/09/2006 12:25 PM | | | | | PDT | | + + + + + | Oxygen Saturation | - | - | | + + + + + | Inhaled Oxygen | - | - | | | Concentration | | | | + + + + + | Weight | 99.3 kg (219 lb) | 09/09/2006 12:25 PM | | | | | PDT | | + + + + + | Height | 175.3 cm (5' 9") | 09/09/2006 12:25 PM | | | | | PDT | | + + + + + | Body Mass Index | 32.34 | 09/09/2006 12:25 PM | | | | | PDT | | + + + + + documented in this encounter Patient Instructions Patient Instructions Delfina Molina - 09/09/2006 1:22 PM PDT1. Increase fentanyl patch: apply 25mcg/hr patch to area of clean, dry, skin and change every 72 hours. 2. Continue with Morrill 10/325 1 tablet as needed for activity related pain NTE 3 per day. 3. Continue with pain psychology and physical therapy. 4. Follow up in two weeks. 5. Keep neurology evaluation as able with insurance aurthorization. documented in this encounter Progress Notes Delfina Molina - 09/09/2006 1:00 PM PDTFormatting of this note might be different from lesli gomez. 09/09/2006 Belinda Meehan is a 46 y.o. female [facility] Return Visit Chief Complaint: Chief Complaint Patient presents with Back pain leg pain History of Present Illness: Belinda Meehan is a 46 y.o. year-old female with a history of chronic pain due to multiple chronic pain conditions Belinda Barnes is here today for a follow up visit, and reports decreased chronic pain since prio r visit. She reports an uneventful transition from morphine to the fentanyl and decreased p ain overall, at most a 20% reduction in the fibromyalgia pain, 100% in shoulders, and has no t changed the lower back or leg pain. She has been working with PT on her lower back this h as not been aggrevating. Belinda Meehan was compliant with all aspects of chronic opioid therapy , is using the me dication as directed, demonstrates benefits, and has no serious adverse effects. There were no significant cognitive or mood impairments. There is no evidence of diversion past or pre sent. She reports that the trileptal helps with her right buttock and leg radicular pain best res ults at night time, this pain was aggrevated by a fall last week, no new weakness or numbnes s. She has been using loftstrand crutches and not her cane since prior visit, a suggestion of PT this may explain her decreased shoulder pain also. Dr Morales as recommended a secon d opinion on left knee replacement surgery she has been referred to Dr. Oscar SHEEHAN. Mood and sleep has improved, she does use her CPAP machine. There have been no reported new procedures, diagnostic studies or changes in medical care s joycelyn prior visit. She had a fall from her car last week and reports that the increased pain in her back and left knee has been decreasing, she has not been able to see Dr Gutierrez yet b tx does have and appointment next week to address both legs swelling. She slava any numbnes s or pain with her swelling she has had this happen before and diuretics have resolved the p roblem. Current outpatient prescriptions Medication Sig Dispense Refill MULTI VIT-FLUORIDE OR None Entered ACTONEL 35 MG TAB take 1 tablet (35mg) by oral route once weekly in the morning, at odna st 30 minutes before the first food, beverage, or medication of the day CYANOCOBALAMIN 1,000 MCG TAB 1 x monthly TRILEPTAL 150 MG TAB 1 1/2 tablets twice daily 90 3 NORCO 10 MG-325 MG TAB take 1 tablet by oral route every 4-6 hours as needed for pain N TE 5 per day 120 0 TRILEPTAL 150 MG TAB take 1 1/2 tablets (225mg) by oral route 2 times per day 90 1 PROMETHAZINE 25 MG TAB once daily Side effects: denies Past Medical [...] and swelling Gastrointestinal System: negative Genitourinary System: negative Nervous System: weakness and headache Psychiatric History: depressed Mood and sleep disturbance Physical examination: BP 130/88 | Pulse 78 | Temp (Src) 97.8 F (36.6 C) (Oral) | Resp 16 | Ht 1.753 m (5' 9") | Wt 99.338 kg (219 lbs) Body mass index is 32.34 kg/(m^2). General appearance: Large statured woman, Appears healthy. Alert; in no acute distress. P leasant. Well groomed. Loftsrand curtches left antalgic gait, nonwegiht bearing to the left knee. Bilateral LE 1+ PE up to knees, no reddness, heat, tnerness, negative homans sign, afebrile and drainage PPP bilaterall DP/TP. Impression: 721.42 Spondylosis with Myelopathy, Lumbar Region 715.96F 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 729.1 Fibromyalgia syndrome 729.1 296.32 Major Depressive Disorder, Recurrent Episode, Moderate 309.24 Adjustment Disorder with Anxiety 346.90D Migraine Headache Recommendations/Plan: total 30 minute visit with greater than 50% spent in reviewing the progress notes, imaging and counselling/education of the patient. 1. Increase fentanyl patch: apply 25mcg/hr patch to area of clean, dry, skin and change ev eduardo 72 hours. 2. Continue with Morrill 10/325 1 tablet as needed for activity related pain NTE 3 per day. 3. Continue with pain psychology and physical therapy. 4. Follow up in two weeks to review medication management 5. Keep neurology evaluation as able with insurance aurthorization.- migraine headache eval uation 6. PCP to assess LE edema/swelling. DELFINA MOLINA [facility] Comprehensive Pain Center Mail code CH 4P [facility] and [address] [address] Ailyn Foster 09/10/19 07 12:20 PM PDTCMA History: PMH/PSH/SH/FH review 1. Has [...] medication refills today? yes [facility] Plan of Treatment Not on filedocumented as of this encounter Visit Diagnoses + + | Diagnosis | + + | Spondylosis with myelopathy, lumbar region | + + | 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 Osteoarthrosis, unspecified whether | | generalized or localized, lower leg | + + | Fibromyalgia [...]
--- OUTSIDE RECORDS SUMMARY | ~2018-11-09 | XMS | Encounter Summary ---
Demographics + + + | Address | [address] | | | [place] [address] | + + + | Home Phone [...] Providers + +------+ + | Care Health Unit Clerk Name | Role | Phone | [...] Mychal Kovacs | | | | | [facility] | [place], [place] | | | | | [address]arm[address] | [address] | | | | | Jayce Mcrae | [phone] | | | | | Road Mailcode: | | | | | | [id number] | | | | | | [place]armila [place], | | | | | | [place] [address] | | | | | | [phone] | | | +--------+--------+ + + + [...]
--- OUTSIDE RECORDS SUMMARY | ~2018-11-09 | XMS | Encounter Summary ---
Demographics + + + | Address | [address] | | | [place] [address] | + + + | Home Phone [...] Author + + + | Author | [facility] | + + + | Organization | [facility] | + + + | Address [...] Team Providers + +------+ + | Care Trimmer Operator Three Knife Name | Role | Phone | + +------+ + | Maria Esther Cintron MD | PCP | Unavailable | + +------+ + Encounter Details +--------+ + + + + | Date | Type | Department | Care Team | Description | +--------+ + + + + | 10/06/ | Abstract | [facility] | Patricia Banegas, | | | 2012 | | [place] [facility] [address] | FULL CHARGE BOOKKEEPER [address] | | | | | TRACE Kovacs | , [facility] [address] | | | | | Mailcode: Center | [place], [place] | | | | | for Health and | [address] | | | | | [facility] [address] | [phone] | | | | | [place], [place] | | | | | | [address] | | | | | | [phone] | | | +--------+ + + + [...]
--- OUTSIDE RECORDS SUMMARY | ~2018-11-09 | XMS | Encounter Summary ---
Demographics + + + | Address | [address] | | | [place] [address] | + + + | Home Phone [...] Team Providers + +------+ + | Care Agricultural Economics Professor Name | Role | Phone | [...] Refill Request | | 2007 | | Center [address] | [address] | | | | | Mychal Kovacs Mailcode: | Naeem Mcrae | | | | | [facility] for | [place], [place] | | | | | Health and Healing, | [address] | | | | | 6th floor [place], | [phone] | | | | | [place] [address] | | | | | | [phone] | | | +--------+--------+ + + + [...]
--- OUTSIDE RECORDS SUMMARY | ~2018-11-09 | XMS | Encounter Summary ---
Demographics + + + | Address | [address] | | | [place] [address] | + + + | Home Phone [...] + + + | Author | [facility] | + + + | Organization | [facility] | + + + | Address [...] Team Providers + +------+ + | Care Flow Match Sofa Cutter Name | Role | Phone | [...] 09/23/ | Office | [facility] Center at [facility] | Lukasz Charles, | Major Depressive | | 2006 | Visit | 15th Floor [address] | PhD [address] | Disorder, Recurrent | | | | [address] Mail | Ave [place], [place] | Episode, Moderate | | | | Code: [facility] Center | [address] | (HCC); Chronic | | | | for Health and | [phone] | Abdominal Pain; | | | | Healing, 15th Floor | | Herniated Lumbar | | | | [place], [place] | | Intervertebral Disc | | | | [address] | | L4-5; DJD | | | | [phone] | | (Degenerative Joint | | | [...] progress but still neglects self-care occasionally. Diagnosis: [place] I: 1. (296.32) Major depressive disorder, recurrent, moderate. 2. (309.24) Adjustment disorder with anxiety. 3. 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 [place] II: Deferred [place] III: abdominal pain, migraine headache, low back pain. [place] IV: low finances [place] V: GAF 50 Plan: Return in 2 weeks. Check preparation for move and for niece's visit, [employer] gym, pacing, r elaxation, activity, distraction. Check managing Pain... book. Discuss need for further vi sits. Total time spent with patient was approximately [address] [facility] Comprehensive Pain Center [address] [facility] [place] [address] documented in this encount er Plan of Treatment + + +--------+ + + | Name | Type | Priori | Associated Diagnoses | Order Schedule | | | | ty | | | + + +--------+ + + | ND PSYCHOTHERPY, | Procedures | Routin | Major Depressive | Ordered: 09/23/2006 | | OFFICE (45-50) | | e | Disorder, Recurrent | | | | | | Episode, Moderate | | | | | | ([facility]) Chronic | | | | | | [...]
--- OUTSIDE RECORDS SUMMARY | ~2018-11-09 | XMS | Encounter Summary ---
Demographics + + + | Address | [address] | | | [place] [address] | + + + | Home Phone [...] Providers + +------+ + | Care Kennel Manager Dog Track Name | Role | Phone | + [...] | Pain | Diagnoses | Miracle, | Morris, | | | | Management | LBP (low | NIHARIKA Jean | Lukasz Rhodes, PhD | | | | | back pain) | [address] | [address] | | | | | DJD | [address] | [address] | | | | | (degenerativ | [place], [place] | [place] | | | | | e joint | [address] | [address] | | | | | disease) of | | Phone: | | | | | knee Knee | | [phone] | | | | | pain Major | | Fax: | | | | | depressive | | [phone] | | | | | disorder, | [...] [facility] | Lukasz Charles, | Major Depressive | | 2007 | Visit | 15th Floor [address] | PhD [address] | Disorder, Recurrent | | | | [address] Mail | Ave [place], [place] | Episode, Mild (HCC); | | | | Code: [facility] Center | [address] | LBP (Low Back | | | | for Health and | [phone] | Pain); Migraine | | | | Healing, 15th Floor | | Headache | | | | [place], [place] | | | | | | [address] | | | | | | [phone] | | | +--------+---------+ + + + [...] scheduled to come here after surgery. Diagnosis: [place] I: 1. (296.31) Major depressive disorder, recurrent, mild. 2. (309.24) Adjustment disorder with anxiety. 3. 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 [place] II: Deferred [place] III: abdominal pain, migraine headache, low back pain. [place] IV: low finances [place] V: GAF 55-60 Plan: return with next medical follow-up appointment. Check mood, pain, surgical recovery , relaxation, activity, distraction, eating. Ask about headaches, fainting, Thanksgiving. Continue cognitive/behavioral therapy. Total time spent with patient was approximately 45 minutes. LUKASZ CHARLES [facility] Comprehensive Pain Center [address] [facility], [address] [place] [address] documented in this encount Plan of Treatment + + +--------+ + + | Name | Type | Priori | Associated Diagnoses | Order Schedule | | | | ty | | | + + +--------+ + + | MD PSYCHOTHERPY, | Procedures | Routin | Major Depressive | Ordered: 04/28/2008 | | OFFICE (22-73) | | e | Disorder, Recurrent | [...]
--- OUTSIDE RECORDS SUMMARY | ~2018-11-09 | XMS | Encounter Summary ---
Demographics + + + | Address | [address] | | | [place] [address] | + + + | Home Phone [...] | [facility] | | | and [...] Team Providers + +------+ + | Care Kardex Clerk Name | Role | Phone | [...] + + | 09/03/ | Telephone | [facility] | Alanis, | Fall; Hip Pain | | 2018 | | MEDICINE [address] [place] [address] | MD Petrona | | | | | [facility] | [address] [place] [address] | | | | | [place] [address] | [place] [address] | | | | | [phone] | [phone] | | | | | | | [...] | | | | | [place] [address] | | | | | | [phone] | | | | | | | | +--------+---------+ + + + documented as of this encounter Visit Diagnoses Not on filedocumented in this encounter"
--- OUTSIDE RECORDS SUMMARY | ~2018-11-09 | XMS | Encounter Summary ---
Demographics + + + | Address | [address] | | | [place] [address] | + + + | Home Phone [...] Author + + + | Author | [facility] | + + + | Organization | [facility] | + + + | [...] Team Providers + +------+ + | Care Instructor Adjunct Pharmacy Technician Name | Role | Phone | [...] Conser, | [place], | | | | , Diabetes & | H/O gastric | Patricia Lopez NP | MD Beto | | | | Metabolism | bypass | [address] | [address] | | | | | Hypovitamino | [address], | Ave | | | | | sis D [address] | [address] | [place], [place] | | | | | nutritional | [facility] [place] | [address] | | | | | deficiency | [address] | Phone: | | | | | Other | Phone: | [phone] | | | | | protein-jose manuel | [phone] | Fax: | | | | | nick | Fax: | [phone] | | | | | malnutrition | [phone] | | | | | | Weight | | | | | | | gain | | | | | | | Procedures | | | | | | | CONSULT TO | | | | | | | ENDO | | | | | | | [address] | | | | | | | [address] | | | +--------+--------+ + + + + Encounter Details +--------+---------+ + + + | Date | Type | Department | Care Team | Description | +--------+---------+ + + + | 12/21/ | Office | Kraig Turner | Beto Meeks MD | Metabolic syndrome X | | 2012 | Visit | [facility] | [address] | 250.80 (Primary | | | | [facility] | [place], [place] | Dx); Hypothyroidism; | | | | [facility] [address] | [address] | Essential | | | | [place] | [phone] | hypertension [address]; | | | | Road [facility] | | Secondary | | | | [facility] | | hyperparathyroidism, | | | | [facility] [place], | | non-renal (HCC) | | | | [place] [address] | | | | | | [phone] | | | +--------+---------+ + + + [...] 32.9 (L) RDW 11.5-15.0 % 12.4 PLATELET XA720-042 K/cu mm 205 IRON 30-160 ug/dL 114 [...] like the sleeve but was told by [facility] STATISTICAL MACHINE SERVICER that it is not an option, recommended pharmacologic weight mgmt. Gets primary care in [place], [place] (Maria Esther Cintron). Weight leveled out [...] replacement 08/2007 right knee Lumbar fusion 05/2008 [id number] with bone spur removals Appendectomy Cholecystectomy section [...] Hives Mainly in the legs Clindamycin Codeine Ctljipw-Cgwibjvszr-Pcv-Caff Balance problems Fioricet W/Codeine (Kadyxfwxft-Wzwblfifew-Ntd-Cod) Keflex (Cephalexin) Morphine IM ( only in [facility]) made gut pain worse 08/27/06: Trial of [...] UE&LE Labs Reviewed Today 2001 A1C 6 2007 TSH 1.3 2009 Vit D 47 Dexa [...] that I have documented were reviewed wi th a staff physician at the time of this visit. The staff physician agrees that my assessmen t, plan and services provided are appropriate. Ly Allred MD R-2, Internal Medicine Pager: [phone] documented in this enco unter Plan of [...] - | | | A1C | Interpretive | | AIRPORT - | | | | Information If | | KEYMAR | | | | you are screening for | | | | | | diabetes: | | | | | | <5.7 | | | | | | Non-diabetic | | | | | | 5.7-6.4 | | | | | | Prediabetes | | | | | | >6.4 | | | | | | Diabetes, if confirmed | | | | | | For monitoring | | | | | | of diabetes | | | | | | control: | | | | | | <7.0 | | | | | | Usual goal of treatment; | | | | | | low risk for | | | | | | complications | | | | | | 7.0-8.0 | | | | | | Some increased risk for | | | | | | long-term | | | | | | complications [...] + | [facility] | [address] | [place] [address] | | | [place] | | | [...] + | [facility] | [address] | [place] [address] | | | SERVICES, SPECIAL | PARK [...] 27 | 20 - 50 % | [facility] | | | SATURATION | | | [...] + + + + | [facility] | [address] | [place] [address] | | | SERVICES, CORE | PARK [...] | New reference range and methodology effective 02/11/13. | [facility] | | | LABORATORY | | | SERVICES, | | | SPECIAL IMM + | | | COAG | + + + + + + + + | Performing | Address | City/State/Zipcode | Phone Number | | Organization | | | | + + + + + | [facility] | [address] [facility] | [place] [address] | | | SERVICES, SPECIAL | PARK [...] by | | | | | | [address] | | | | | | Abdiaziz Morales, [facility] [place] | | | | | | [address] | | | | | | [phone].[email or web address]. | | | | | | abraham, [employer], | | | | | | Esteban SHEEHAN. Director | | | | + + + + + + + + | Specimen | + + | Blood - Blood | + + + + + + + | Performing | Address | City/State/Zipcode | Phone Number | | Organization | | | | + + + + + | [facility] | [address] | [place], [place] | | | [facility] | | [address] | | + + + + + [...] | | Deficiency: less than 20 ng/mL | LABORATORY | | Optimum level: greater than or equal to 20 ng/mL* | SERVICES, | | *(Mark CL et | SPECIAL IMM + | | al. Pediatrics 2008; 122:1128-38.) 18 years and older: | COAG | | Deficiency: less than 20 ng/mL | | | Insufficiency: 20-29 ng/mL | | | Optimum Level: 30-80 ng/mL | | | High: 81-150 ng/ml | | | Toxic: Greater than 150 ng/mL | | | This assay accurately quantifies the sum of Vitamin D3 25-hydroxy | | | and Vitamin D2, 25-hydroxy. | | + + + + + + + + | Performing | Address | City/State/Zipcode | Phone Number | | Organization | | | | + + + + + | [facility] | [address] | [place] [address] | | | SERVICES, SPECIAL | PARK [...] + | [facility] | [address] | [place] [address] | | | [place] | | | | + + + [...]
--- OUTSIDE RECORDS SUMMARY | ~2018-11-09 | XMS | Encounter Summary ---
Demographics + + + | Address | [address] | | | [place] [address] | + + + | Home Phone [...] + + + | Author | [facility] | + + + | Organization | [facility] | + + + | [...] Providers + +------+ + | Care Channel Lip Stiffener Insoles Name | Role | Phone | + +------+ + PCP | Unavailable | + +------+ + Encounter Details +--------+ + + + + | Date | Type | Department | Care Team | Description | +--------+ + + + + | 11/27/ | Office | [facility] | Clinic, [...] as of this encounter Progress Notes Interface, Mobility Architect Manager In - 12/11/2005 2:05 AM PDT [id number] GEOVANNI SKELTON J [id number] Clinic Date: 11/27/2005 Clinic: Rheumatology Primary Care Physician: Pedrito Gutierrez M.D. Belinda Meehan is a 45-year-old woman here for followup of fibromyalgia. She has had a recent MRI for low back pain indicating that she has 4 herniated disks, and she is due to have trials of steroid injections starting tomorrow morning. She notes she has pain in the legs all the time. She apparently does not have any spinal stenosis. If the steroid injections are not useful, she will be referred for a possible surgery. She does find trigger point injections to be fairly useful and would like several of those today. The area of her trapezius, bilaterally hurt, is painful as well as the right upper gluteal muscle. She does have a history of gastric bypass and has had difficulty with abdominal pain. She had a minor procedure done in the gut and felt quite a lot better but now again has had abdominal discomfort for which belladonna is fairly useful. Allergies: SHE HAS RECENTLY BECOME ALLERGIC TO TRAMADOL. IT GAVE HER HIVES AND RASH. SHE ALSO ENDED UP WITH A RASH TO MORPHINE WITH HER LAST HOSPITALIZATION. So currently, she is not using any opiate for pain management. Current Medications: She takes Wellbutrin 300 mg daily, propranolol 60 mg b.i.d., belladonna 1 every 8 hours for gut pain, ranitidine 150 mg, ibuprofen 800 mg t.i.d., and supplements. Objective: Vital Signs: Weight is 184, pulse 16 regular, and blood pressure 104/70. She has tender myofascial trigger points in the bilateral trapezius and the right upper gluteus edwardo. Assessment and Plan: 1. We went ahead and did trigger point injections using 0.5% procaine for a total of 8 mL. She tolerated the injections quite well. 2. I have given her 2 trial prescriptions that she can run by the anesthesiologist whom she sees for steroid injections tomorrow. For Lyrica, she could use 50 mg or 100 mg at bedtime. I gave her #21 free with the coupon. I have also given her #14 free up to 75 mg, and she may be able to find a dose that is appropriate. She has had a past trial of Neurontin and ended up being very sleepy and fatigued with it. I am thinking that Lyrica may be most useful for her to use at night for pain control. If she tolerates it well, she could use it during the day. Doses run anywhere from 50 mg t.i.d. to 150 mg or even 200 mg b.i.d. Lastly, I do think she should have some oxycodone to use for bad pain flares, but I will leave this up to her anesthesiologist and Dr. Gutierrez. I will see her back in about 6 months. Caitlin Rivera M.S., F.N.P. / [id number] / [id number] / [id number] / [id number] cc: Pedrito Gutierrez M.D. [address] [place] [address] [id number] Electronically signed by Caitlin Rivera 12-10-2005 09:27:21 AM documented i n this encounter Plan of Treatment Not on filedocumented as of this encounter Visit Diagnoses Not on filedocumented in this encounter"
--- OUTSIDE RECORDS SUMMARY | ~2018-11-09 | XMS | Encounter Summary ---
Demographics + + + | Address | [address] | | | [place] [address] | + + + | Home Phone [...] Team Providers + +------+ + | Care Airport Sales Agent Name | Role | Phone | [...] | | | | | | | [address]/[address] | | | | | | | [facility] | | | | | | | [facility]ILION | | | | | | | [place], [place] | | | | | | | [address] | | | | | | | Phone: | | | | | | | [phone] | | | | | | | Fax: | | | | | | | [phone] | +--------+--------+ + + + + Encounter Details +--------+ + + + + | Date | Type | Department | Care Team | Description | +--------+ + + + + | 02/22/ | Hospital | [facility] [address] | Hai Hoyos, | | | 2008 | Encounter | [address] | | | | | | [address] [place] | | | | | | [place], | | | | | | [place] [address] | | | | | | [phone] | | | +--------+ + + + [...] Brief Hospital Course: Patient was admitted to [facility] short stay surgery. Patient was taken to [...] business hours at or page the orthopedist concreter after regular business hours at [phone]. If you have any of the following: [...] at . Follow Up Tests: (Tests at [facility] must be entered into [employer]) none Condition On Discharge: stable Vital Signs [...] Brief Hospital Course: Patient was admitted to [facility] short stay surgery. Patient was taken to [...] business hours at or page the orthopedist concreter after regular business hours at [phone]. If you have any of the following: [...] appointment, please call our scheduling line at [phone]. Follow Up Tests: (Tests at [facility] must be entered into Epic) none Condition [...] + + + | [facility] | [address] | [place] [address] | | | PATHOLOGY | [address] [...] + + + | [facility] | [address] | [place] [address] | | | PATHOLOGY | [address] [...] | | | | | performed at [place] | | | | | | [facility] | | | | | | Laboratory. | | | | + + + + + + + + | Specimen | + + | | + + + + + + + | Performing | Address | City/State/Zipcode | Phone Number | | Organization | | | | + + + + + | [facility] | [address] | [place] [address] | | | PATHOLOGY | [address] [...] OF | [address] | [place] [address] | | | PATHOLOGY | [address] [...] | | | | | performed at [place] | | | | | | [facility] | | | | | | Laboratory | | | | + + + + + + + + | Specimen | + + | | + + + + + + + | Performing | Address | City/State/Zipcode | Phone Number | | Organization | | | | + + + + + | [facility] | [address] | [place] [address] | | | PATHOLOGY | [address] [...] + + + | [facility] | [address] | [place] [address] | | | PATHOLOGY | [address] [...] RLB | | | | | | ([facility]) | | | | | | [facility] | | | | | | [facility] | | | | | | [address] | | | | | | [address] | | | | | | [place] | | | | | | , [place] [address] | | | | + + + + + + + + | Specimen | + + | | + + + + + + + | Performing | Address | City/State/Zipcode | Phone Number | | Organization | | | | + + + + + | [facility] | [address] | [place] [address] | | | PATHOLOGY | [address] [...] Performed At | + + + | [id number] | | | [id number] | | | [id number] GEOVANNI | | | BELINDA Barnes [id number] | | | Date: 02/22/2009 Attending | | | Surgeon: Hai Hoyos MD | | | Adoption Specialist(s): Donna Robertson | | | Shantel Clancy Preoperative Diagnosis(es): Left symptomatic | | | scapula lesion. Postoperative Diagnosis(es): Left symptomatic | | | scapula lesion. Procedures Performed: 1. Curettage and | | | bone grafting of the left scapular lesion. 2. Open biopsy, | | | left scapular lesion. Donna Clancy served as my | | | department assistant because no other qualified help was [...] | | aforementioned. MD ARTIS Wei / [id number] / | | | [id number] / [id number] / | | + + + + + | Procedure Note | + + | Hai Hoyos MD - 02/22/2009 12:00 AM PDT [id number] | | [id number] GEOVANNI Barnes | | [id number] Date: 02/22/2009 Attending Surgeon: Hai | | MD Romain Adoption Specialist(s): Shantel Whipple Preoperative | | Diagnosis(es):Left symptomatic scapula lesion. Postoperative Diagnosis(es):Left | | symptomatic scapula lesion. Procedures Performed:1. Curettage and bone grafting of | | the left scapular lesion.2. Open biopsy, left scapular lesion. Donna Clancy | | served as my department assistant because no other qualified help wasavailable. [...] plan is as aforementioned. CHARU Wei / [id number] / [id number] / [id number] /D: | | 02/22/2009T: 02/22/2009 | | [...] Hoyos MD | |ZA / HS | |[id number] / [id number] / [id number] / | | | | | | [...] Argueta, | | | | | | M.DYudy/Pathologist [...] + + + | [facility] | [facility] | [place] [address] | | | PATHOLOGY | [address] | | | + + + + + | [facility] DEPARTMENT OF | [address] [facility] | [place] [address] | | | PATHOLOGY | [address] [...]
--- OUTSIDE RECORDS SUMMARY | ~2018-11-09 | XMS | Encounter Summary ---
Demographics + + + | Address | [address] | | | [place] [address] | + + + | Home Phone [...] Author + + + | Author | [facility] | + + + | Organization | [facility] | + + + | Address [...] Team Providers + +------+ + | Care Band Cutter Name | Role | Phone | [...] [address] | | | | | | [place], [place] | | | | | | [address] | | | | | | [phone] | | | +--------+ + + + [...]
--- OUTSIDE RECORDS SUMMARY | ~2018-11-09 | XMS | Encounter Summary ---
Demographics + + + | Address | [address] | | | [place] [address] | + + + | Home Phone [...] Team Providers + +------+ + | Care Pinsetter Mechanic Automatic Name | Role | Phone | + [...]
--- OUTSIDE RECORDS SUMMARY | ~2018-11-09 | XMS | Encounter Summary ---
Demographics + + + | Address | [address] | | | [place] [address] | + + + | Home Phone [...] | | | Metabolism | bypass | [address] | [address] | | | | | Hypovitamino | [address], | Ave | | | | | sis D [address] | [address] | [place], [place] | | | | | nutritional | [place], [place] | [address] | | | | | deficiency | [address] | Phone: | | | | | Other | Phone: | [phone] | | | | | protein-jose manuel | [phone] | Fax: | | | | | nick | Fax: | [phone] | | | | | malnutrition | [phone] | | | | | | Weight | | | | | | | gain | | | | | | | Procedures | | | | | | | CONSULT TO | | | | | | | ENDO | | | | | | | [address] | | | | | | | [address] | | | +--------+--------+ + + + + Encounter Details +--------+---------+ + + + | Date | Type | Department | Care Team | Description | +--------+---------+ + + + | 05/31/ | Office | Kraig Turner | Beto Meeks MD | Hypothyroidism | | 2012 | Visit | [facility] | [address] | (Primary Dx); | | | | [facility] | [place], [place] | Metabolic syndrome X | | | | [facility] [address] | [address] | 250.80; Essential | | | | [facility] | [phone] | hypertension [address]; | | | | [facility] | | IGT (impaired | | | | [facility] | | glucose tolerance) | | | | [facility]ilion [place], | | | | | | [place] [address] | | | | | | [phone] | | | +--------+---------+ + + + [...] month in the pain center her at [facility], so she is hoping to find an [...] Hives Mainly in the legs Clindamycin Codeine Kvzdtmy-Wtikwzjvpk-Vqo-Caff Balance problems Fioricet W/Codeine (Nbaimrsnqy-Wmxkwqqnoz-Rse-Cod) Keflex (Cephalexin) Morphine IM ( only in [facility]) made gut pain worse 08/27/06: Trial [...] U/L 41 ANION GAP 8 VITAMIN B12, [id number] pg/ml >2000 (H) HEMOGLOBIN A1C <=5.6 % [...] SERUM 15.0-85.0 pg/ml 222.9 (H) VITAMIN B12, [id number] pg/ml > 2000 HEMOGLOBIN A1C <=5.6 % [...] 5. Healthy Lifestyle 6. RTC 2-3 Months Susan kuo in this encounter Plan of Treatment + [...]
--- OUTSIDE RECORDS SUMMARY | ~2018-11-09 | XMS | Encounter Summary ---
Demographics + + + | Address | [address] | | | [place] [address] | + + + | Home Phone [...] + + + | Author | [facility] | + + + | Organization | [facility] | + + + | Address [...] Providers + +------+ + | Care Database Developer Name | Role | Phone | + +------+ + | Pedrito Gutierrez MD | PCP | | + +------+ + Encounter Details +--------+---------+ + + + | Date | Type | Department | Care Team | Description | +--------+---------+ + + + | 01/29/ | Office | Orthopaedics at | Hai Hoyos, | Other Specified | | 2008 | Visit | [facility] [address] | | Pre-Operative | | | | [facility] [address] | | Examination (Primary | | | | Mailcode: [id number] | | Dx) | | | | Physician's [place]ila | | | | | | [place], [place] | | | | | | [address] | | | | | | [phone] | | | +--------+---------+ + + + [...] take place on the hill at the [facility]: Surgeries scheduled in the [facility] ( [facility]): registration is located on the 4th floor of [facility] (Day Surgery). Surgeries scheduled in the [facility]: registration is located on the 9th floor. Surgeries scheduled in [facility]: registration is located on the 6th floor. Surgeries scheduled in the [facility]: registration is located i n the [facility] on the first floor. For surgeries scheduled to take place at the [facility]: registration is l [...] If you use specialized medical equipment at [facility], please check with your provider before [...]
--- OUTSIDE RECORDS SUMMARY | ~2018-11-09 | XMS | Encounter Summary ---
Demographics + + + | Address | [address] | | | [place] [address] | + + + | Home Phone [...] Providers + +------+ + | Care Environmental Services Manager Name | Role | Phone [...] | | | | | | [address] | | | | | | Mail Code: CH15P | | | | | | [facility] | | | | | | and Healing, | | | | | | Floor [place], [place] | | | | | | [address] | | | | | | [phone] | | | +--------+ + + + [...]
--- OUTSIDE RECORDS SUMMARY | ~2018-11-09 | XMS | Encounter Summary ---
Demographics + + + | Address | [address] | | | [place] [address] | + + + | Home Phone [...] Team Providers + +------+ + | Care Train Gateman Name | Role | Phone | + [...] as of this encounter Progress Notes Interface, Physical Therapy Asst In - 10/15/2005 2:06 AM PDT [id number] GEOVANNI Barnes Clinic Date: 09/18/2005 Clinic: Ms. [...] about a month. Chris Padgett M.D. / [id number] / [id number] / [id number] / [id number] Electronically signed by Chris Padgett 10-14-2005 08:13:46 AM documented i n this encounter Plan of Treatment Not on filedocumented as of this encounter Visit Diagnoses Not on filedocumented in this encounter"
--- OUTSIDE RECORDS SUMMARY | ~2018-11-09 | XMS | Encounter Summary ---
Demographics + + + | Address | [address] | | | [place] [address] | + + + | Home Phone [...] Team Providers + +------+ + | Care Disc Pad Grinder Name | Role | Phone | + +------+ + | Pedrito Gutierrez MD | PCP | | + +------+ + Encounter Details +--------+ + + + + | Date | Type | Department | Care Team | Description | +--------+ + + + + | 08/22/ | Hospital | Radiology/Imaging | | | | 2008 | Encounter | Lab at [facility] [address] | | | | | | [address] | | | | | | Mailcode: CH3G | | | | | | [facility] | | | | | | and Healing, 3rd | | | | | | Floor [place], [place] | | | | | | [address] | | | | | | [phone] | | | +--------+ + + + [...]
--- OUTSIDE RECORDS SUMMARY | ~2018-11-09 | XMS | Encounter Summary ---
Demographics + + + | Address | [address] | | | [place] [address] | + + + | Home Phone [...] Author + + + | Author | [facility] | + + + | Organization | [facility] | + + + | Address [...] Providers + +------+ + | Care Waste Removalist Name | Role | Phone | + [...] Description | +--------+--------+ + + + | 11/03/ | Refill | Kraig Turner | Beto Meeks MD | Refill Request | | 2007 | | [facility] | [address] | | | | | [facility] | [place], [place] | | | | | [place] [address] | [address] | | | | | [facility] | [phone] | | | | | Road [facility] | | | | | | [facility] | | | | | | Pavilion [place], | | | | | | [place] [address] | | | | | | [phone] | | | +--------+--------+ + + + [...]
--- OUTSIDE RECORDS SUMMARY | ~2018-11-09 | XMS | Encounter Summary ---
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 Diagnosis: Leland I: 1. (296.32) Major depressive disorder, recurrent, moderate. 2. (309.24) Adjustment disorder with anxiety. 3. 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 Leland II: Deferred Leland III: abdominal pain, migraine headache, low back pain. Leland IV: low finances Leland V: GAF 50 Plan: Return in 2 weeks. Check preparation for niece's visit, [employer] gym, pacing, relaxation, ac tivity, distraction. Check managing Pain... book. Continue cognitive/behavioral therapy. Total time spent with patient was approximately 45 minutes. LUKASZ CHARLES PHD [facility] [address] [facility], [address] [place] [address] documented in this encount er Plan of Treatment + + +--------+ + + | Name | Type | Priori | Associated Diagnoses | Order Schedule | | | | ty | | | + + +--------+ + + | [facility] PSYCHOTHERPY, | Procedures | Routin | Major [...]
--- OUTSIDE RECORDS SUMMARY | ~2018-11-09 | XMS | Encounter Summary ---
Demographics + + + | Address | [address] | | | [place] [address] | + + + | Home Phone [...] Team Providers + +------+ + | Care Network Control Operators Supervisor Name | Role | Phone | + +------+ + PCP | Unavailable | + +------+ + Encounter Details +--------+ + + + + | Date | Type | Department | Care Team | Description | +--------+ + + + + | 01/11/ | Results | Endocrinology, | Beto Meeks MD | | | 2001 | Only | Diabetes and | [address] | | | | | Clinical Nutrition | [place], [place] | | | | | [address] | [address] | | | | | [facility] | [phone] | | | | | Mailcode: [id number] | | | | | | Outpatient Clinic | | | | | | [facility] | | | | | | [place] [address] | | | | | | [phone] | | | +--------+ + + + [...] [facility] | [address] | [place], [place] | | | [facility] | | [address] | | + + + + + [...] + + + | Non-Diabetic 4.0 - | | | 5.9% Level of Control | | | Excellent Less | | | than 7% | | | Good | | | 7.0 - 8.0 | | | Fair | | | 8.1 - 9.5 | | | Poor | | | Greater than 9.5% | | + + + + + + + + | Performing | Address | City/State/Zipcode | Phone Number | | Organization | | | | + + + + + | [facility] | [address] | [place] [address] | | | LABORATORY | | | [...] + + + + | [facility] DEPARTMENT OF | [address] | [place] [address] | | | PATHOLOGY | [address] | | | + + + + + | [facility] DEPARTMENT OF | [address] | [place] [address] | | | PATHOLOGY | [address] | | | + + + + + LIPASE (01/11/2002 3:50 PM PDT) + +--------+ + + + | Component | Value | Ref Range | Performed | Pathologist | | | | | At | Signature | + +--------+ + + + | LIPASE | 21 (L) | 22 - 51 U/L | [facility] | | | (LAB) | [...] + + + + | [facility] DEPARTMENT | [address] [facility] | [place] [address] | | | PATHOLOGY | [address] | | | + + + + + | [facility] | [address] [facility] | [place] [address] | | | PATHOLOGY | [address] [...] + + + + | [facility] DEPARTMENT OF | [address] | [place] [address] | | | PATHOLOGY | [address] | | | + + + + + | [facility] DEPARTMENT | [address] | [place] [address] | | | PATHOLOGY | [address] [...] + + + + | [facility] DEPARTMENT OF | [address] | [place] [address] | | | PATHOLOGY | [address] | | | + + + + + | [facility] DEPARTMENT OF | [address] | [place] [address] | | | PATHOLOGY | [address] | | | + + + + + documented in this encounter Visit Diagnoses Not on filedocumented in this encounter"
--- OUTSIDE RECORDS SUMMARY | ~2018-11-09 | XMS | Encounter Summary ---
Demographics + + + | Address | [address] | | | [place] [address] | + + + | Home Phone [...] + + + | Author | [facility] | + + + | Organization | [facility] | + + + | [...] Team Providers + +------+ + | Care Simulation Software Engineer Name | Role | Phone [...] Clementina Winkler | | | | | [facility] | [place], [place] | | | | | Health and Healing, | [address] | | | | | 6th floor [place], | [phone] | | | | | [place] [address] | | | | | | [phone] | | | +--------+ + + + [...]
--- OUTSIDE RECORDS SUMMARY | ~2018-11-09 | XMS | Encounter Summary ---
Demographics + + + | Address | [address] | | | [place] [address] | + + + | Home Phone [...] Providers + +------+ + | Care Ophthalmic Surgical Assistant Name | Role | Phone | + +------+ + PCP | Unavailable | + +------+ + Encounter Details +--------+ + + + + | Date | Type | Department | Care Team | Description | +--------+ + + + + | 05/20/ | Results | General Surgery | Chris Padgett, | | | 2003 | Only | [address] | [address] | | | | | [facility] | [address] | | | | | Mailcode: [id number] | [place], [place] | | | | | Physicians [address]armila | [address] | | | | | [address] [place], | [phone] | | | | | [place] [address] | | | | | | [phone] | | | +--------+ + + + [...] + | VITAMIN D, | Routin | 05/20/2004 | | Results for this | | 25-HYDROXY, SERUM | e | 1:48 PM | | procedure are in the | | | | PST | | results section. | + +--------+ + + + | COMPLETE METABOLIC | Routin | 05/20/2004 | | Results for this | | SET | e | 1:48 PM | | procedure are in the | | (NA,K,CL,CO2,BUN,CRE | | PST | | results section. | | AT,GLUC,CA,AST,ALT,B | | | | | | DEYA TOTAL,ALK | | | | | | PHOS,ALB,PROT TOTAL) | | | | | + +--------+ + + + documented in this encounter Results VITAMIN D, 25-HYDROXY (05/20/2004 1:48 PM PST) + +--------+ + + + | Component | Value | Ref Range | Performed | Pathologist | | | | | At | Signature | + +--------+ + + + | VITAMIN D | 69 (H) | 10 - 68 ng/mL | | | | 25 HYDROXY | | | | | + +--------+ + + + + + | Specimen | + + | | + + + + + + + | Performing | Address | City/State/Zipcode | Phone Number | | Organization | | | | + + + + + | [facility] | [address] | [place] [address] | | | LABORATORY | | | | + + + + + COMP METABOLIC SET (05/20/2004 1:48 PM PST) + +---------+ + + + [...] +---------+ + + + | TOTAL | 7.3 [...] +---------+ + + + | POTASSIUM, | 3.3 (L) | 3.5 - 5.1 | [facility] [...] + + + | ALT (SGPT) | 24 | 13 - 48 U/L | [facility] [...] | [facility] DEPARTMENT OF | [address] | [place] [address] | | | PATHOLOGY | [address] | | | + + + + + | [facility] | [address] | [place] [address] | | | PATHOLOGY | [address] | | | + + + + + documented in this encounter Visit Diagnoses Not on filedocumented in this encounter"
--- OUTSIDE RECORDS SUMMARY | ~2018-11-09 | XMS | Encounter Summary ---
Demographics + + + | Address | [address] | | | [place] [address] | + + + | Home Phone [...] + + + | Author | [facility] | + + + | Organization | [facility] | + + + | [...] Providers + +------+ + | Care Licensed Pharmacist Name | Role | Phone | + [...] 2009 | | [facility] | [address] | | | | | [facility] | [place], [place] | | | | | [address] | [address] | | | | | [facility] | [phone] | | | | | [facility] | | | | | | [facility] | | | | | | [facility] [place], | | | | | | [place] [address] | | | | | | [phone] | | | +--------+--------+ + + + [...]
--- OUTSIDE RECORDS SUMMARY | ~2018-11-09 | XMS | Encounter Summary ---
Demographics + + + | Address | [address] | | | [place] [address] | + + + | Home Phone [...] Providers + +------+ + | Care Clinical Ob Name | Role | Phone | + [...] | | | Metabolism | bypass | [address] | [address] | | | | | Hypovitamino | [address], | Ave | | | | | sis D [address] | [address] | [place], [place] | | | | | nutritional | [facility] [place] | [address] | | | | | deficiency | [address] | Phone: | | | | | Other | Phone: | [phone] | | | | | protein-jose manuel | [phone] | Fax: | | | | | nick | Fax: | [phone] | | | | | malnutrition | [phone] | | | | | | Weight | | | | | | | gain | | | | | | | Procedures | | | | | | | CONSULT TO | | | | | | | ENDO | | | | | | | [address] | | | | | | | [address] | | | +--------+--------+ + + + [...] | | | [facility] | [place], [place] | Dx); Hypothyroidism; | | | | [facility] [address] | [address] | Essential | | | | [address] | [phone] | hypertension 401.9; | | | | Road [facility] | | 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 Gets primary care in [place], [place] (Maria Esther Cintron). Weight leveled out [...] replacement 08/2007 right knee Lumbar fusion 05/2008 L5-V1cqxtzh with bone spur removals Appendectomy Cholecystectomy section [...] Hives Mainly in the legs Clindamycin Codeine Bhhyphu-Csuylsobcd-Dnf-Caff Balance problems Fioricet W/Codeine (Raatyoeubg-Abaocdmbkg-Vmy-Cod) Keflex (Cephalexin) Morphine IM ( only in [facility]) made gut pain worse 08/27/06: Trial of [...] Ly Allred MD R-2, Internal Medicine Pager: [phone] documented in this enco unter Plan of [...] | | | Information If | | [place] | | | | you are screening [...] + | [facility] - | [address] | [place] [address] | | | [place] | | | [...] [facility] | [address] | [place] [address] | | | SERVICES, SPECIAL | PARK [...] 27 | 20 - 50 % | [facility] | | | SATURATION | | | [...] | + + + + + | [facility] | [address] | [place] [address] | | | SERVICES, CORE | PARK [...] | + + + + + | [facility] | [address] [facility] | [place] [address] | | | SERVICES, SPECIAL | PARK [...] by | | | | | | [employer],[address] | | | | | | Abdiaziz Morales, [facility] | | | | | | [address] | | | | | | [phone].[employer]. | | | | | | abraham, [...] [facility] | [address] | [place], [place] | | | [facility] | | [address] | | + + + + + [...] | + + + + + | [facility] | [address] | [place] [address] | | | SERVICES, SPECIAL | PARK [...] + | [facility] | [address] | [place] [address] | | | [place] | | | | + + + [...]
--- OUTSIDE RECORDS SUMMARY | ~2018-11-09 | XMS | Encounter Summary ---
Demographics + + + | Address | [address] | | | [place] [address] | + + + | Home Phone [...] + + | Author | [facility] | + + + | Organization | [facility] | + + + | [...] Providers + +------+ + | Care Oracle Apex Developer Name | Role | Phone | + +------+ + | Pedrito Gutierrez MD | PCP | | + +------+ + Encounter Details +--------+---------+ + + + | Date | Type | Department | Care Team | Description | +--------+---------+ + + + | 07/30/ | Office | Comprehensive Pain | Nathalia Arora | Cervical Spondylosis | | 2006 | Visit | [facility] | [address] | without Myelopathy | | | | [place] [address] | Clementina Winkler [place], | (Primary Dx); | | | | Mychal Kovacs Mail Code: | [place] [address] | Spondylosis with | | | | [facility] | | Myelopathy, Lumbar | | | | Health and Healing, | | Region; Herniated | | | | 15th Floor | | Lumbar | | | | [place], [place] | | Intervertebral Disc; | | | | [address] | | Unspecified Myalgia | | | | [phone] | | and Myositis | +--------+---------+ + [...] this encounter Progress Notes Nathalia Arora - 07/30/2006 1:12 PM PSTFormatting of this note might be different from th e original. Physical Therapy Medicare Progress Note Date: 07/30/2006 Belinda Meehan [id number] Start of Care: 06/23/2006 Referring Provider: [...] 05/29/2006 Insurance: Medicare Number of used/authorized visits: 3/5 Medicare certification from: 07/16/2006 through Subjective: Patient reported upon rising this am lowback pain 10/10, and now 7/10. "I fee l like I've been hit by a truck." Objective: Patient returned for her 2nd f/u visit, she has been ill with pneumonia for at east 1 week, is taking antibiotics, and also presented today with migraine symptoms. Genoveva t stated she was not overly sore post her 1st physical therapy visit and has been doing her home exercises. Major complaint today is pain/tightness of cervical and upper back areas. Patient stated also she has fallen 3 times without injury and is using her loftstrand crutch es at home, but did not brink any gait devices with her today. Patient has multiple appts. At [facility] today, including a f/u regarding her connelly density test which showed progressive oste oporosis. Treatment: Upon palpation noted significant tightness of paracervicals, upper traps, thora columbar erector spinae hypertonicity, R>L and spasm at right gluteals. Continue with myofas cial release to lowback and right gluteals, right thoracolumbar erector spinae and right upp er traps and paracervicals X 20 minutes. Followed by active sidelying stretch for right hip flexors with verbal cues to stabilize; then in supine hook lying patient performed isometri c transverse abdominis contractions, then added posterior pelvic tilt; ended with bilateral shoulder F/E, emphasized thoracic and lumbopelvic control. Patient was issued and instructe d in use of single based cane on left side, advised to use this the remainder of the day whi lisy here and to always have gait devices with her. Assessment: Patient's symptoms consistent with mechanical and myofascial sources; decreased strength of core, no change in function secondary to onset of pneumonia. Plan: Continue with manual therapy PRN, progress patient in core stabilization regime and i solated stretches for lowback, hips, and lower extremities. Treatment began: 1010 Treatment ended: 1100 Nathalia Arora, Physical Therapist License number [id number] documented in this encoun ter Plan of Treatment + + +--------+ + + | Name | Type | Priori | Associated Diagnoses | Order Schedule | | | | ty | | | + + +--------+ + + | TX MANUAL THER | Procedures | Routin | Cervical | Ordered: 07/30/2006 | | TECH,1+REGIONS,EA 15 | | e [...] | + + +--------+ + + | TX THERAPEUTIC | Procedures | Routin | Cervical | Ordered: 07/30/2006 | | EXERCISES | | e | [...]
--- OUTSIDE RECORDS SUMMARY | ~2018-11-09 | XMS | Encounter Summary ---
Demographics + + + | Address | [address] | | | [place] [address] | + + + | Home Phone [...] Providers + +------+ + | Care Career Technical Counselor Name | Role | Phone | [...]
--- OUTSIDE RECORDS SUMMARY | ~2018-11-09 | XMS | Encounter Summary ---
Demographics + + + | Address | [address] | | | [place] [address] | + + + | Home Phone [...] Author + + + | Author | [facility] | + + + | Organization | [facility] | + + + | Address [...] Team Providers + +------+ + | Care Monogram Operator Name | Role | Phone | [...] | Caitlin Rivera, | Fibromyalgia | | 2006 | Visit | Rheumatology [address] | [address] | (Primary Dx); | | | | [address] | | Fibromyalgia; | | | | Road Mailcode: OPC5 | | Fibromyalgia | | | | Outpatient Clinic | | | | | | Building [place], | | | | | | [place] [address] | | | | | | [phone] | | | +--------+---------+ + + + [...] discomfort- entire abd around to back. Seeing [facility] pain clinic. Fentanyl patch helped pain a [...] + + +--------+ + + | [place] INJECT TRIGGER | Procedures | Routin | Fibromyalgia | Ordered: 02/16/2007 | | POINTS, > 3 | | e | | | + + +--------+ + + | [place] INJECT TRIGGER | Procedures | Routin | Fibromyalgia | Ordered: 02/16/2007 | | POINTS, > 3 | | e | Fibromyalgia | | + + +--------+ + + | [place] INJECT TRIGGER | Procedures | Routin | [...]
--- OUTSIDE RECORDS SUMMARY | ~2018-11-09 | XMS | Encounter Summary ---
Demographics + + + | Address | [address] | | | [place] [address] | + + + | Home Phone [...] Author + + + | Author | [facility] | + + + | Organization | [facility] | + + + | Address | [...] Team Providers + +------+ + | Care Mate Fourth Name | Role | Phone | + [...] [address] | | | | | [facility] | [place], [place] | | | | | [place] [address] | [address] | | | | | [facility] | [phone] | | | | | Road [facility] | | | | | | [facility] | | | | | | [facility] [place], | | | | | | [place] [address] | | | | | | [phone] | | | +--------+--------+ + + + [...]
--- OUTSIDE RECORDS SUMMARY | ~2018-11-09 | XMS | Encounter Summary ---
Demographics + + + | Address | [address] | | | [place] [address] | + + + | Home Phone [...] Team Providers + +------+ + | Care Tar And Ammonia Pump Operator Name | Role | Phone | [...] 08/12/ | Office | [facility] | Lukasz Charles, | Major Depressive | | 2006 | Visit | 15th Floor [address] | PhD [address] | Disorder, Recurrent | | | | [address] Mail | Ave [place], [place] | Episode, Moderate | | | | Code: [facility] | [address] | ([facility]); Neck Pain; | | | | for Health and | [phone] | Migraine Headache; | | | | Healing, 15th Floor | | Spondylosis with | | | | [place], [place] | | Myelopathy, Lumbar | | | | [address] | | Region; Adjustment | | | | [phone] | | Disorder with | | | [...] is making an effort to improve. Diagnosis: [place] I: 1. (296.32) Major depressive disorder, recurrent, moderate. 2. (309.24) Adjustment disorder with anxiety. 3. 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 [place] II: Deferred [place] III: abdominal pain, migraine headache, low back pain. [place] IV: low finances [place] V: GAF 50 Plan: Return in 2 weeks. Check pacing, relaxation, activity, distraction. Ask about coping with previous headache. Continue cognitive/behavioral therapy. Total time spent with patient was approximately 45 minutes. LUKASZ CHARLES [facility], [address]th [place] [address] documented in this encount er Plan of Treatment + + +--------+ + + | Name | Type | Priori | Associated Diagnoses | Order Schedule | | | | ty | | | + + +--------+ + + | PA PSYCHOTHERPY, | Procedures | Routin | Major [...]
--- OUTSIDE RECORDS SUMMARY | ~2018-11-09 | XMS | Encounter Summary ---
Demographics + + + | Address | [address] | | | [place] [address] | + + + | Home Phone [...] Author | [facility] | + + + | Organization | [facility] | + + + | Address | [...] Team Providers + +------+ + | Care Political Researcher Name | Role | Phone | + +------+ + | Sulaiman Carrera MD | PCP | Unavailable | + +------+ + Encounter Details +--------+ + + + + | Date | Type | Department | Care Team | Description | +--------+ + + + + | 09/18/ | Ancillary | Registration [address] | Chris Padgett, | | | 2005 | Registratio | [address] | [address] [facility] | | | | n | [facility] Mailcode: | [address] | | | | | [address] [place], [place] | [place], [place] | | | | | [address] | [address] | | | | | [phone] | [phone] | | | | | | | [...] + +--------+ + + + | X-RAY ABDOMEN 2 | Routin | 09/18/2005 | | Results for this | | VIEWS | e | 2:15 PM | | procedure are in the | | | | PDT | | results section. | + +--------+ + + + documented in this encounter Results ABDOMEN 2 VIEWS (09/18/2005 2:15 PM PDT) + + + + + + | Component | Value | Ref Range | Performed | Pathologist | | | | | At | Signature | + + + + + + | ABDOMEN, 2 | Radiologist 1: RICARDO, | | | | | VIEWS | LILIANA, MDSupine and | | | | | | upright abdomen. No | | | | | | comparison. Bowel gas | | | | | | pattern is | | | | | | normal. Cholecystecto | | | | | | my clips are present | | | | | | inthe right upper | | | | | | quadrant. Surgical | | | | | | staple lines are noted | | | | | | in theepigastrium and | | | | | | left midabdomen, in | | | | | | keeping with probable | | | | | | gastricbypass with | | | | | | Zoe-en-Y anastomosis. | | | | | | CONCLUSION: 1. No | | | | | | bowel obstruction or | | | | | | perforation. | | | | + + + + + + + + | Specimen | + + | | + + + +---------+ + + | Performing | Address | City/State/Zipcode | Phone Number | | Organization | | | | + +---------+ + + | [facility] DEPARTMENT OF | | | | | RADIOLOGY | | | | + +---------+ + + documented in this encounter Visit Diagnoses Not on filedocumented in this encounter"
--- OUTSIDE RECORDS SUMMARY | ~2018-11-09 | XMS | Encounter Summary ---
Demographics + + + | Address | [address] | | | [place] [address] | + + + | Home Phone [...] + | Organization | [facility] | | | and Jairana [...] Team Providers + +------+ + | Care Records Management Analyst Name | Role | Phone | [...] Required | | | i, | W Gibson | | | | | osteoporosis | Sulaiman-Iv[address]ny | Cece Zhao, | | | | | without | , MD [address] | [place] [address] | | | | | current | [address] | Phone: | | | | | pathological | [place] Z[place]O, | [phone] | | | | | fracture | [place] | Fax: | | | | | | [address] | [phone] | | | | | | Phone: | | | | | | | [phone] | | | | | | | Fax: | | | | | | | [phone] | | +--------+ + + + + + Reason for Visit + + + | Reason | Comments | + + + | Medication Orders | | + + + Encounter Details +--------+ + + + + | Date | Type | Department | Care Team | Description | +--------+ + + + + | 09/20/ | Telephone | [facility] | Alanis, | Medication Orders | | 2019 | | MEDICINE [address] [place] [address] | MD [place] | | | | | [facility] | [address] [place] [address] | | | | | [place] [address] | [place] [address] | | | | | [phone] | [phone] | | | | | | | [...] | | | | | [place] [address] | | | | | | [phone] | | | | | | | | +--------+---------+ + + + + +--------+ + + | Name | Priori | Associated Diagnoses | Order Schedule | | | ty | | | + +--------+ + + | * [facility] OP Infusion - AMB Referral | Routin | Age-related | Expected: | | | e | osteoporosis without | 09/22/2018, Expires: | | | | current | 09/23/2019 | | | | pathological | | | | | fracture | | + +--------+ + + documented as of this encounter Visit Diagnoses + + | Diagnosis | + + | Age-related osteoporosis without current pathological fracture - Primary Senile | | osteoporosis | + + documented in this encounter"
--- OUTSIDE RECORDS SUMMARY | ~2018-11-09 | XMS | Encounter Summary ---
Demographics + + + | Address | [address] | | | [place] [address] | + + + | Home Phone [...] Team Providers + +------+ + | Care Habilitative Interventionist Name | Role | Phone | + [...] [address] | | | | | [facility] | [place], [place] | | | | | [address] | [address] | | | | | [facility] | [phone] | | | | | Road Physicians | | | | | | [facility] | | | | | | [facility] [place], | | | | | | [place] [address] | | | | | | [phone] | | | +--------+--------+ + + + [...]
--- OUTSIDE RECORDS SUMMARY | ~2018-11-09 | XMS | Encounter Summary ---
Demographics + + + | Address | [address] | | | [place] [address] | + + + | Home Phone [...] Team Providers + +------+ + | Care Qc Tech Name | Role | Phone | [...] | | | [facility] | [place], [place] | | | | | Health and Healing, | [address] | | | | | 6th floor [place], | [phone] | | | | | [place] [address] | | | | | | [phone] | | | +--------+ + + + [...]
--- OUTSIDE RECORDS SUMMARY | ~2018-11-09 | XMS | Encounter Summary ---
Demographics + + + | Address | [address] | | | [place] [address] | + + + | Home Phone [...] Author + + + | Author | [facility] | + + + | Organization | [facility] | + + + | [...] Providers + +------+ + | Care Supervisor Aluminum Fabrication Name | Role | Phone | [...] + + | 10/05/ | Telephone | Orthopaedics at | Ramon Ibarra, | MRI Results | | 2006 | | [facility] [address] | [address] [facility] | | | | | [address] Mailcode: CH12A | [place], [place] | | | | | [facility] | [address] | | | | | and | [phone] | | | | | [place], [place] | | | | | | [address] | | | | | | [phone] | | | +--------+ + + + [...]
--- OUTSIDE RECORDS SUMMARY | ~2018-11-09 | XMS | Encounter Summary ---
Demographics + + + | Address | [address] | | | [place] [address] | + + + | Home Phone [...] Providers + +------+ + | Care Robotics Technician Name | Role | Phone | [...] + + | / | Office | [facility] | Delfina Molina, | LBP (Low Back Pain); | | 2007 | Visit | Pain Center at | ANP | Spondylosis with | | | | [facility] | | Myelopathy, Lumbar | | | | [address] | | Region; Herniated | | | | Mail Code: CH15P | | Lumbar | | | | [facility] | | Intervertebral Disc | | | | and Healing | | L4-5; Fibromyalgia | | | | Floor [place], [place] | | syndrome 729.1; | | | | [address] | | Bilateral Knee Pain; | | | | [phone] | | Arthroplasty of the | | | | | | Left Knee; DJD | | [...] Moderate | | | | | | ([facility]); Adjustment | | | | [...] in this encounter Patient Instructions Patient Instructions Miracle, Delfina - 08/13/2007 9:18 AM PSTContinue with current [...] Belinda Meehan is a 47 y.o. female [facility] Return Visit Chief Complaint: [...] drawing has be completed, which I reviewed. 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 Pending 08/30/07 DR Cadet in [facility]: right knee arthroplasty. Urology evaluation for ur [...] Collection Time Resulting Agency 05/25/2007 4:[address] [facility] DEPARTMENT OF RADIOLOGY Component Results MR CERVICAL [...] with any concerns or questions. DELFINA MOLINA [facility] Mail code CH 4P [facility] [address] [facility] [address] Ailyn Bello 08/13/19 08 8:52 AM PSTCMA History: PMH/PSH/SH/FH review 1. Has [...]
--- OUTSIDE RECORDS SUMMARY | ~2018-11-09 | XMS | Encounter Summary ---
Demographics + + + | Address | [address] | | | [place] [address] | + + + | Home Phone [...] Author + + + | Author | [facility] | + + + | Organization | [facility] | + + + | [...] Team Providers + +------+ + | Care Hazmat Tanker Driver Name | Role | Phone | [...] | Pain | Diagnoses | Miracle, | [place], | | | | Management | LBP (low | NIHARIKA Jean | Lukasz Rhodes, PhD | | | | | back pain) | [address] | [address] | | | | | DJD | [address] | [address] | | | | | (degenerativ | [place], [place] | [place], [place] | | | | | e joint | [address] | [address] | | | | | disease) of | | Phone: | | | | | knee Knee | | [phone] | | | | | pain Major | | Fax: | | | | | depressive | | [phone] | | | | | disorder, | [...] 03/03/ | Office | [facility] | Lukasz Charles, | Major Depressive | | 2007 | Visit | 15th Floor [address] | PhD [address] | Disorder, Recurrent | | | | [address] Mail | Ave [place], [place] | Episode, Moderate | | | | Code: [facility] | [address] | ([facility]); LBP (Low Back | | | | for Health and | [phone] | Pain); Bilateral | | | | Healing, 15th Floor | | Knee Pain; | | | | [place], [place] | | Fibromyalgia | | | | [address] | | syndrome 729.1; | | | | [phone] | | Adjustment Disorder | | | [...] as of this encounter Progress Notes Lukasz hCarles - 03/03/2008 10:08 AM PDTPROGRESS NOTE: Belinda [...] a lot and is going to the [employer] regularly. She mentioned that she is taking [...] seems to be doing good self-care. Diagnosis: [place] I: 1. (296.32) Major depressive disorder, recurrent, moderate. 2. (309.24) Adjustment disorder with anxiety. 3. 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 [place] II: Deferred [place] III: abdominal pain, migraine headache, low back pain. [place] IV: low finances [place] V: GAF 55-60 Plan: return with next medical follow-up appointment. Check mood, pain, relaxation, activ ity, distraction, eating. Continue cognitive/behavioral therapy. Total time spent with patient was approximately 45 minutes. LUKASZ CHARLES PHD [facility] [address] [facility], 4th [place] [address] documented in this encount er Plan of Treatment + + +--------+ + + | Name | Type | Priori | Associated Diagnoses | Order Schedule | | | | ty | | | + + +--------+ + + | MD PSYCHOTHERPY, | Procedures | Routin | Major Depressive | Ordered: 03/03/2008 | | OFFICE (76-79) | | e | Disorder, Recurrent | [...]
--- OUTSIDE RECORDS SUMMARY | ~2018-11-09 | XMS | Encounter Summary ---
Demographics + + + | Address | [address] | | | [place] [address] | + + + | Home Phone [...] Team Providers + +------+ + | Care Gyroscope Repairer Name | Role | Phone | [...] | | | | Hemorrhoid | T, MEDICAL RESEARCH SCIENTIST [address] | Bandar Stroud MD | | | | | Procedures | Sara MIN | [address] | | | | | CONSULT TO | MALIK | [address] | | | | | SURGERY - | [place], [place] | [address] [place], | | | | | GENERAL | [address] | [place] | | | | | | | [address] | | | | | | | Phone: | | | | | | | [phone] | | | | | | | Fax: | | | | | | | [phone] | +--------+--------+ + + + + Encounter Details +--------+ + + + + | Date | Type | Department | Care Team | Description | +--------+ + + + + | 08/31/ | Nutritionists | Digestive Health | Nuris Cardenas NP | Hemorrhoid (Primary | | 2008 | | Center [address] | [address] | Dx) | | | | [facility] | [place] [address] | | | | | Mailcode: [id number] | | | | | | Physicians [address] | | | | | | [place], [place] | | | | | | [address] | | | | | | [phone] | | | +--------+ + + + [...]
--- OUTSIDE RECORDS SUMMARY | ~2018-11-09 | XMS | Encounter Summary ---
Demographics + + + | Address | [address] | | | [place] [address] | + + + | Home Phone [...] Team Providers + +------+ + | Care Wine Specialist Name | Role | Phone | + +------+ + PCP | Unavailable | + +------+ + Encounter Details +--------+ + + + + | Date | Type | Department | Care Team | Description | +--------+ + + + + | 02/18/ | Results | Endocrinology, | Beto Meeks MD | | | 2000 | Only | Diabetes and | [address] | | | | | Clinical Nutrition | [place], [place] | | | | | [address] | [address] | | | | | [facility] | [phone] | | | | | Mailcode: OPC5 | | | | | | Outpatient Clinic | | | | | | [facility] | | | | | | [place] [address] | | | | | | [phone] | | | +--------+ + + + [...] | + + + + + | [facility] | [address] | [place] [address] | | | LABORATORY | | | [...] | + + + + + | [facility] | [address] | [place] [address] | | | LABORATORY | | | [...] | + + + + + | [facility] | [address] | [place] [address] | | | LABORATORY | | | | + + + + + documented in this encounter Visit Diagnoses Not on filedocumented in this encounter"
--- OUTSIDE RECORDS SUMMARY | ~2018-11-09 | XMS | Encounter Summary ---
Demographics + + + | Address | [address] | | | [place] [address] | + + + | Home Phone [...] Team Providers + +------+ + | Care Stroboroma Operator Name | Role | Phone | [...] | | Center [address] | [address] | from pneumonia, | | | | [address] Mailcode: | [address] | wants to get back on | | | | [address] for | [place], [place] | vitamins) | | | | Health and Healing, | [address] | | | | | [address] [place] [address], | [phone] | | | | | [place] [address] | | | | | | [phone] | | | +--------+ + + + [...]
--- OUTSIDE RECORDS SUMMARY | ~2018-11-09 | XMS | Encounter Summary ---
Demographics + + + | Address | [address] | | | [place] [address] | + + + | Home Phone [...] Providers + +------+ + | Care Mapping Analyst Name | Role | Phone | [...] | | | [address] Mailcode: | [facility] | | | | | [address] for | [place], [place] | | | | | Health and Healing, | [address] | | | | | [address] [place] [address], | [phone] | | | | | [place] [address] | | | | | | [phone] | | | +--------+ + + + [...]
--- OUTSIDE RECORDS SUMMARY | ~2018-11-09 | XMS | Encounter Summary ---
Demographics + + + | Address | [address] | | | [place] [address] | + + + | Home Phone [...] Providers + +------+ + | Care Housekeeping Coordinator Name | Role | Phone | [...] ogy | Iron | [place], | [facility] | | | | | deficiency | MD Carlos | [address] | | | | | Procedures | [address] | [facility] | | | | | CONSULT TO | [address] | Mailcode: | | | | | GI PROCEDURE | Rd | [address] | | | | | UNIT: EGD | [place], [place] | [place] | | | | | | [address] | [address] | | | | | | Phone: | [place], | | | | | | [phone] | [place] [address] | | | | | | | Phone: | | | | | | | [phone] | | | | | | | Fax: | | | | | | | [phone] | +--------+--------+ + + + + Consultation (Routine) +--------+--------+ + + + + | Status | Reason | Specialty | Diagnoses / | Referred By | Referred To | | | | | Procedures | Contact | Contact | +--------+--------+ + + + + | Closed | | Gastroenterol | Diagnoses | | Gas Endo | | | | ogy | Iron | [place], | [facility] [address] | | | | | deficiency | MD Carlos | [address] | | | | | Procedures | [address] | [facility] | | | | | CONSULT TO | [address] | Mailcode: | | | | | GI PROCEDURE | Rd | [address] | | | | | UNIT: | [place], [place] | [place] | | | | | COLONOSCOPY | [address] | [address] | | | | | | Phone: | [place], | | | | | | [phone] | [place] [address] | | | | | | | Phone: | | | | | | | [phone] | | | | | | | Fax: | | | | | | | [phone] | +--------+--------+ + + + + Reason for Visit + + + | Reason | Comments | + + + | Procedure | pre colon | + + + | Abdominal pain | | + + + Encounter Details +--------+---------+ + + + | Date | Type | Department | Care Team | Description | +--------+---------+ + + + | 03/10/ | Office | [facility] Division of | Carlos Arreola, | Chronic Abdominal | | 2005 | Visit | Gastroenterology/Hep | [address] | Pain; Iron | | | | atology [address] | [address] | Deficiency | | | | [address] | [place] [address] | | | | | Road Mailcode: | [phone] | | | | | [address] [facility] | | | | | | [address] | | | | | | [place], [place] | | | | | | [address] | | | | | | [phone] | | | +--------+---------+ + + + [...] + + + | Blood Pressure | 116/74 | 03/10/2006 1:20 PM | | | | | PDT | | + + + + + | Pulse | 68 | 03/10/2006 1:20 PM | | | | | PDT | | + + + + + | Temperature | 36.7 C (98 F) | 03/10/2006 1:20 PM | | | | | PDT | | + + + + + | Respiratory Rate | 16 | 03/10/2006 1:20 PM | | | | | PDT | | + + + + + | Oxygen Saturation | - | - | | + + + + + | Inhaled Oxygen | - | - | | | Concentration | | | | + + + + + | Weight | 88 kg (194 lb) | 03/10/2006 1:20 PM | | | | | PDT | | + + + + + | Height | - | - | | + + + + + | Body Mass Index | 35.48 | 01/22/2006 2:47 PM | | | | | PDT | | + + + + + documented in this encounter Patient Instructions Patient Instructions 03/10/2006 1:30 PM PDT Dear Belinda Meehan It was a pleasure meeting you today. If you need to contact me, please do so by calling and asking for my lpn or medical assistant Cierra Alexis. I always do my best to return your call within the same working day. The call will initially go to one of my assistants, and they w ill relay the message to me. IF YOU GO TO AN EMERGENCY ROOM AGAIN IN THE FUTURE, I RECOMMEND THAT AN AMYLASE AND LIPASE BE DRAWN TO EVALUATE FOR ACUTE PANCREATITIS. If you have had labs drawn today, I will contact you if there are any abnormal values. Oth erwise, you can be assured that I have looked at your labs and they are normal. If you would like copies of the results mailed to you, call my office and we would be happy to do so. If you are going to be scheduled for an XRAY or endoscopy (colonoscopy/upper endoscopy), kraig corona contact me 1 week after you have undergone the evaluation, and I will let you know the results of those procedures and any new suggestions. Please feel free to contact me with any other questions or issues. Carlos Arreola MD. [facility] Division Of Gastroenterology/Hepatology [facility] [address] [facility] [address] [place] [address] documented in this encounter Progress Anup Plascencia - 03/10/2006 2:52 PM PDTI saw and examined the patient and discussed the ca se with Dr. Arreola. I agree with the resident's findings and plan as written.Veto lentz signed by Anup Reyes at 03/10/2006 2:52 PM PDTSilverblatt, Carlos - 03/09/2006 9:32 AM PDT GENERAL GASTROENTEROLOGY CLINIC INITIAL CONSULTATION Belinda Meehan is an 46 y.o. female, who is referred by Chris Padgett, for evaluation prior to colonoscopy given FHx of Colon Cancer. Subj: Pt sees Dr. Padgett and was referred for colonoscopy. FHx of colon cancer includes: grand father at old age Symptoms include pain for past year, episodic but there most days, doesn't relate to food i ntake or exercise reliably, often awakes her from sleep. 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 Lost 200lbs psot bypass surgery, has gained weight mor e recently, 'water weight' more than from dietary indiscretion per patient. She strictly av oids fatty foods since surgery. Her pain is diffuse in the abdomen and radiates to her back. Pt still smokes, does not note rleatio of pain to cig use. No claudication symptoms. Prio r 'stroke in my left eye' and takes ASA. No other NSAIDs. She notes reflux, takes H2RA, no dysphagia or early satiety. No hx of ulcer. No melena, BRBRPR but has occasionally seen blood in bowel movements. 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 She has presented to emergency rooms with acute pain, had normal imaging and mild transaminase elevation without cholestasis. Sh e had her beta colby dose halved in january due to low bp. Pt is s/p kalia 02/16. No biliary stones seen on prior imaging (yes kidney stones). Past Medical History: CHRONIC ABDOMINAL PAIN on Oxycodone, NSAIDs, ASA Comment: RUQ u/s at OSH reportedly nl panc, bile ducts, liver; ct abd/pel normal, Metabolic syndrome X 250.80[250.80] Essential hypertension 401.9[401.9] Asthma 493.9[493.9] Joint pain 719.40[719.40] Fibromyalgia syndrome 729.1[729.1] Muscle pain 729.1[729.1] Obstructive sleep apnea 780.57[780.57A] Impaired glucose tolerance 790.2[790.2] Degenerative disorder 796.4[796.4] Past Surgical History: GASTRIC BYPASS November 2003 Lap assisted letitia-en-y bypass Mayra Padgett Comment: wt 278 01/18 PANICULECTOMY Crrent outpatient prescriptions: PROMETHAZINE 25 MG TAB, prn, Disp: , Rfl: VITAMIN B-12 1,000 MCG/ML INJECTION, inject 0.1 milliliter (100 mcg) by intramuscular route once a month, Disp: , Rfl: RANITIDINE 150 MG TAB, take 1 tablet (150mg) by oral route 2 times per day, Disp: , Rfl: PROMETHAZINE 25 MG TAB, None Entered, Disp: , Rfl: NEURO B12 FORTE INJECTION, None Entered, Disp: , Rfl: ZANTAC 150 EFFERDOSE 150 MG TAB, take 1 tablet (150mg) dissolved in 6-8 ounces of water by oral route 2 times per day, Disp: , Rfl: WELLBUTRIN XL 300 MG 24 HR TAB, take 1 tablet (300mg) by oral route once daily, Disp: , Rfl : PROPRANOLOL 60 MG TAB, take 1 tablet (60mg) by oral route 2 times per day, Disp: , Rfl: BELLADONNA ALKALOID-PHOSPHORUS OR, None Entered, Disp: , Rfl: VICODIN 5 MG-500 MG TAB, take 1 tablet by oral route every 4-6 hours as needed for pain, Di sp: , Rfl: OXYCODONE 5 MG TAB, take 2 tablets (10mg) by oral route every 4 hours as needed*, Disp: 100 , Rfl: 0 OXYCODONE 15 MG TAB, q. 3 hrs PRN, Disp: , Rfl: Allergies: Keflex (cephalexin) Sulfa (sulfonamides) Codeine Penicillins Clindamycin Cipro (ciprofloxaci* Tramadol Social History: Tobacco Use: still smokes Packs/Day: 1 Years: 30 Alcohol Use: No No family history on file Review of Systems: o/w negative Examination: BP 116/74 | Pulse 68 | Temp 98 | Resp 16 | Wt 194 lbs (88.0kg) General: Healthy appearing, calm, pleasant. Appearing their stated age. Eyes: Sclerae anicteric. ENMT: No oral lesions. Neck: Supple, no carotid bruits,no thyromegaly. Cardiac: Regular rate and rhythm, S1 S2 Nl, no M/R/G/. Chest: CTA Bilaterally. Lymph nodes: No lymphadenopathy in the neck supraclavicular or other areas. Extremities: 2/2 bilateral pulses, no edema. Skin: Warm, dry, no rashes or lesions, no spider angiomata. Neuro: A & 0 *3, non-focal Psych: Alert and oriented and appropriate in all spheres. Abdomen: Bowel sounds present, soft, NT/ND, no Hepatosplenomegaly. No masses. Striae Data: CT abd/pel 10/18 [facility]: There is no suspect hepatic lesion. Cholecystectomy clips present There is no biliary duct dilation. Pancreas, spleen, left adrenal gland, and left kidney are normal. Uterus is surgically absent. no adnexal mass. CONCLUSION: 1. Punctate right renal calculus possibly associated with calyceal diverticulum. 2. Status post gastric bypass surgery, cholecystectomy, hysterectomy, and bilateral salpingo oophorectomy. No acute abnormality. lab review from 01/29/06: bun/cr 9/.7 sca 9.4 ast 32/alt 54 alk ph/bili 153/0.3 tpro 7.3 alb 3.9 tsh 4.3 wbc 7 hct 44 mcv 95 plt 263 ferritin 11 07/21 Assessment: Belinda Meehan is an 46 y.o. female, who is referred for evaluation and manag ement of chronic abdominal pain. Several etiologies are possible here. She is iron deficient and age 46 and should be referred for colonoscopy and EGD. The latte r appropriate to evalute her abdominal pain definitively as well. I would recommend obtainin g random duodenal biopsies to evaluate for evidence of sprue. She has chronic abdominal pain. Possible explanations include weight gain post bypass surg eduardo, Hyper PTH (known diagnosis, she has kidney stones and abd pain), Marginal ulcer in anas tamosis or other area (prior surgery, on Aspirin), Functional, NSAID enteropathy, chronic pa ncreatitis, kidney stones (seen on ct), GERD. She does have risks for pancreatitis and desc ribes pain consistent with this. EUS would be most sensitive but with her anatomy this is n ot a useful test. Her history does not overtly suggest intestinal angina or mesenteric vascular disease, thou gh she does smoke and has other risk factors. She has mild transaminase elevation, likely from fatty liver. She has no evidence of biliary obstruction or pancreatitis. She should continue to work hard at losing weight steadily. Plan: 1. recheck PTH, Ca 2. Colonoscopy/EGD (PK, Chronic Abd Pain, FHx CRC) 3. recheck cbc, ferritin, add inr 4. check TG 5. PPI BID trial, samples given CARLOS ARREOLA MD documented in this enco unter Plan of Treatment Not on filedocumented as of this encounter Results TRIGLYCERIDES (03/10/2006 2:42 PM [...] | | OF | | | | Normal | | PATHOLOGY | | | | : | | | | | | <150 | | | | | | Borderline | | | | | | High: 150 - | | | | | | 199 | | | | | | High: | | | | | | 200 - | | | | | | 499 | | | | | | Very High: | | | | | | >=500 | | | | + + + + + + + + | Specimen | + + | | + + + + + + + | Performing | Address | City/State/Zipcode | Phone Number | | Organization | | | | + + + + + | [facility] DEPARTMENT OF | [facility] | [place] [address] | | | PATHOLOGY | [address] | | | + + + + + | [place] DEPARTMENT OF | [facility] | [place] [address] | | | PATHOLOGY | [address] | | | + + + + + PROTHROMBIN TIME (03/10/2006 2:42 PM PDT) + + + + + + | Component | Value | Ref Range | Performed | Pathologist | | | | | At | Signature | + + + + + + | INR | 1.01Comment: | 0.90 - 1.20 INR | [facility] | | | | PT INR | | DEPARTMENT | | | | Therapeutic ranges for | | OF | | | | full | | PATHOLOGY | | | | anticoagulation: | | | | | | INR for | | | | | | Venous | | | | | | Thromboembolism | | | | | | | | | | | | (2.0-3.0)INR | | | | | | INR for most | | | | | | patients with mech. | | | | | | valves (2.5-3.5)I | | | | | | NR | | | | + + + + + + + + | Specimen | + + | Blood | + + + + + + + | Performing | Address | City/State/Zipcode | Phone Number | | Organization | | | | + + + + + | [facility] | [address] [facility] | [place] [address] | | | PATHOLOGY | [address] | | | + + + + + | [facility] | [address] [facility] | [place] [address] | | | PATHOLOGY | [address] [...] + + + + + | [facility] | [address] | [place] [address] | | | PATHOLOGY | [address] | | | + + + + + | [facility] | [facility] | [place] [address] | | | PATHOLOGY | [address] [...] DEPARTMENT OF | [address] | [place] [address] | | | PATHOLOGY | [address] | | | + + + + + | [facility] | [address] | [place] [address] | | | PATHOLOGY | [address] [...] | | | | | performed by [employer] | pg/mL | | | | | [facility]. | | | | + + + + + + + + | Specimen | + + | | + + + + + + + | Performing | Address | City/State/Zipcode | Phone Number | | Organization | | | | + + + + + | [facility] | [address] | [place] [address] | | | LABORATORY | | | [...] | | | | | performed at [place] | | | | | | [facility] | | | | | | Laboratory | | | | + + + + + + + + | Specimen | + + | | + + + + + + + | Performing | Address | City/State/Zipcode | Phone Number | | Organization | | | | + + + + + | [facility] | [address] | [place] [address] | | | LABORATORY | | | | + + + + + documented in this encounter Visit Diagnoses + + | Diagnosis | + + | Chronic abdominal pain Abdominal pain, unspecified site | + + | Iron deficiency Other disorders of iron metabolism | + + documented in this encounter"
--- OUTSIDE RECORDS SUMMARY | ~2018-11-09 | XMS | Encounter Summary ---
Demographics + + + | Address | [address] | | | [place] [address] | + + + | Home Phone [...] Providers + +------+ + | Care Pipe Threader Name | Role | Phone | + [...] Description | +--------+--------+ + + + | // | Refill | Kraig Turner | Beto Meeks MD | Refill Request | | 2011 | | [facility] | [address] | | | | | [facility] | [place], [place] | | | | | [address] | [address] | | | | | [address] | [phone] | | | | | Road Mailcode: | | | | | | [id number] [facility] | | | | | | [place], | | | | | | [place] [address] | | | | | | [phone] | | | +--------+--------+ + + + [...]
--- OUTSIDE RECORDS SUMMARY | ~2018-11-09 | XMS | Encounter Summary ---
Demographics + + + | Address | [address] | | | [place] [address] | + + + | Home Phone [...] Providers + +------+ + | Care Medical Clerk Name | Role | Phone | [...] Endocrinology | | | | kurt | [facility] | | | | | | [place], [place] | | | | | | [address] | | | +--------+ + + + [...] as of this encounter Progress Notes Interface, Structural Shop Helper In - 12/06/2006 2:32 AM PDT [id number] GEOVANNI [place] [id number] Clinic Date: 10/29/2006 Clinic: Endocrinology Subjective: Belinda [...] been working with the Pain [facility] at [facility] to optimize her pain management. Fortunately, the [...] patch 25 mcg for 72 hours. 2. [place]/acetaminophen 10 mg/325 mg, 1 every 6 hours [...] months. Beto Meeks M.D. PD / HS [id number] / [id number] / [id number] / [id number] cc: Pedrito Gutierrez M.D. [address] [address] Chris Padgett M.D. Electronically signed by Beto Meeks 12-05-2006 05:17:05 AM documented in this encounter Plan of Treatment Not on filedocumented as of this encounter Visit Diagnoses Not on filedocumented in this encounter"
--- OUTSIDE RECORDS SUMMARY | ~2018-11-09 | XMS | Encounter Summary ---
Demographics + + + | Address | [address] | | | [place] [address] | + + + | Home Phone [...] Author + + + | Author | [facility] | + + + | Organization | [facility] | + + + | Address [...] Team Providers + +------+ + | Care Floatlight Powder Mixer Name | Role | Phone | [...] | | 2006 | Visit | Center [facility] | [address] | Pain; Cervical Pain; | | | | [place] [address] [place], | Pain in Joint, Site | | | | [address] Mail Code: | [place] [address] | Unspecified; | | | | [address] [place] for | | Depression | | | | Health and Healing, | | | | | | [address]th Floor | | | | | | [place], [place] | | | | | | [address] | | | | | | [phone] | | | +--------+---------+ + + + [...] as of this encounter Progress Notes Nathalia Cantu - 06/23/2006 8:03 AM PSTFormatting of this note might be different from lesli gomez. PROGRESS NOTE: PHYSICAL THERAPY MEDICARE INITIAL EVALUATION NOTE Date: 06/23/2006 Name: Belinda Meehan [id number] 46 y.o. female Start of Care: 06/23/2005 [...] the last few gregory hs. Handedness: right Morse: [place], [place] Chief Complaint: Headaches and cervical pain, bilateral [...] HX SALPINGO-OOPHORECTOMY COLONOSCOPY Comment: 03/2006 HX TONSILLECTOMY ME D&C AFTER DELIVERY ME INJECT TRIGGER POINT, 1 OR 2 Medications: [...] complete plan of care with Miranda Lambert N.P. and Dr. Andres Ogden, psycholog ist. Activate [...] | + + +--------+ + + | [facility] PHYS THERAPY | Procedures | Routin | [...]
--- OUTSIDE RECORDS SUMMARY | ~2018-11-09 | XMS | Encounter Summary ---
Demographics + + + | Address | [address] | | | [place] [address] | + + + | Home Phone [...] Providers + +------+ + | Care Assistant Program Director Name | Role | Phone | + +------+ + | Pedrito Gutierrez MD | PCP | | + +------+ + Encounter Details +--------+---------+ + + + | Date | Type | Department | Care Team | Description | +--------+---------+ + + + | 07/30/ | Office | [facility] | Eliezer [place]ano, | Abdominal Pain | | 2006 | Visit | Center [address] | [address] | (Primary Dx) | | | | [address] Mailcode: | [address] | | | | | [facility] | [place], [place] | | | | | Health and Healing, | [address] | | | | | 6th floor [place], | [phone] | | | | | [place] [address] | | | | | | [phone] | | | +--------+---------+ + + + [...] [facility] [address] [facility], 6th [place] [address] Malena Hurst - 07/30 4:09 PM PSTS: C/o chronic [...]
--- OUTSIDE RECORDS SUMMARY | ~2018-11-09 | XMS | Encounter Summary ---
Demographics + + + | Address | [address] | | | [place] [address] | + + + | Home Phone [...] + + + | Author | [facility] | + + + | Organization | [facility] | + + + | [...] Team Providers + +------+ + | Care Navigation Officer Name | Role | Phone | [...] [id number] | | | | | | [place], [place] | | | | | | [address] | | | | | | [phone] | | | +--------+--------+ + + + [...]
--- OUTSIDE RECORDS SUMMARY | ~2018-11-09 | XMS | Encounter Summary ---
Demographics + + + | Address | [address] | | | [place] [address] | + + + | Home Phone [...] Team Providers + +------+ + | Care Field Agronomist Name | Role | Phone | + [...] as of this encounter Progress Notes Interface, Deli Department Manager In - 01/12/2005 10:09 AM PDT [id number] GEOVANNI Barnes Clinic Date: 12/12/2004 Clinic: Endocrinology PHONE CONTACT NOTE The patient called me today after having surgery last week here at [facility]. Her concern was the development of 2 [...] cushion which I have ordered today through [employer], phone #[phone] and fax #[phone]. Today, the patient will monitor the decubiti closely and will be in touch with myself and her other physician depending on the progress. She also still has [address], which may be removed in one or two weeks when she returns to the Surgery Clinic at [facility]. Beto Meeks M.D. PD / HS [id number] / [id number] / [id number] / [id number] cc: Chris Padgett M.D. documented i n this encounter Plan of Treatment Not on filedocumented as of this encounter Visit Diagnoses Not on filedocumented in this encounter"
--- OUTSIDE RECORDS SUMMARY | ~2018-11-09 | XMS | Encounter Summary ---
Demographics + + + | Address | [address] | | | [place] [address] | + + + | Home Phone [...] Team Providers + +------+ + | Care Rehabilitation Psychologist Name | Role | Phone | [...] | | | [facility] | [place], [place] | | | | | [address] | [address] | | | | | [address] | [phone] | | | | | Road Physicians | | | | | | [facility] | | | | | | [facility] [place], | | | | | | [place] [address] | | | | | | [phone] | | | +--------+ + + + [...]
--- OUTSIDE RECORDS SUMMARY | ~2018-11-09 | XMS | Encounter Summary ---
Demographics + + + | Address | [address] | | | [place] [address] | + + + | Home Phone [...] Team Providers + +------+ + | Care Soiled Linen Distributor Name | Role | Phone | + [...] as of this encounter Progress Notes Interface, Die Lay Out Worker In - 08/14/2005 2:05 AM PST [id number] [facility] Date: 08/06/2005 Clinic: Rheumatology [...] of antiinflammatory diet that one of the bander operator in [place] has written a book about, and I have had a patient do extremely well with it in terms of her IBS and fibromyalgia pain and fatigue. Belinda is interested in this and will pursue it. 3. I have given her a lot of articles that she can pass onto her physicians in [place]. She would like somebody there to learn [...] 4 months. Caitlin Rivera M.S., F.N.P. / [id number] / [id number] / [id number] / [id number] cc: Pedrito Gutierrez M.D. [address] [place] [address] Electronically signed by Caitlin Rivera 08-13-2005 03:37:47 PM documented i n this encounter Plan of Treatment Not on filedocumented as of this encounter Visit Diagnoses Not on filedocumented in this encounter"
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
--- OUTSIDE RECORDS SUMMARY | ~2018-11-09 | XMS | Encounter Summary ---
Demographics + + + | Address | [address] | | | [place] [address] | + + + | Home Phone [...] Team Providers + +------+ + | Care Wick And Base Assembler Name | Role | Phone | [...] Lab findings, | | 2008 | | [place] [address] | [address] | teaching, guidance, | | | | Mychal [address]ov[address] Mailcode: | [address] | and counseling | | | | [address] | [place], [place] | (08/28/08 Lab | | | | [facility], | [address] | results) | | | | [address] [place] [address], | [phone] | | | | | [place] [address] | | | | | | [phone] | | | +--------+ + + + [...]
--- OUTSIDE RECORDS SUMMARY | ~2018-11-09 | XMS | Encounter Summary ---
Demographics + + + | Address | [address] | | | [place] [address] | + + + | Home Phone [...] Team Providers + +------+ + | Care Screenplay Writer Name | Role | Phone | [...] + + | 06/21/ | Office | [facility] | Delfina Molina, | LBP (Low Back Pain) | | 2008 | Visit | Pain Center at | ANP | (Primary Dx); Spinal | | | | [facility] | | Fusion Lumbar spine | | | | [address] | | ; Hx Arthroplasty | | | | Mail Code: CH15P | | of both Knees; | | | | Center for [facility] | | Fibromyalgia | | | | and | | syndrome 729.1; | | | | Floor [place], [place] | | Abdominal Pain, | | | | [address] | | dumping syndrome Hx | | | | [phone] | | of gastric bypass; | | [...] Belinda Meehan is a 48 y.o. female [facility] Pain Center Return Visit [...] removal on 05/15/2008 Dr. Betty Thomas MD [facility], after having problems with nu mbness, [...] a migraine sp ecialist this week in [place], Dr Lucio Nichols. Next area of chronic [...] drawing has be completed, which I reviewed. [facility] Brief Pain Inventory: (ten= worst possible [...] 3. Mental Health care: Dr Ogden psychology [facility] last visit today . She [...] 300 mg) by oral route once daily mwhgblxjlu-jifyypbsnfrmu-hdgtrxkk (FIORICET) 50-325-40 mg Oral Tablet take 2 [...] 278 01/18 Paniculectomy Hx lumbar fusion 05/2008 L1-J3dvlxdi with bone spur removals Family History Problem [...] psychologist when ever sh e comes to [place] for medical care. She has a strong [...] with any concerns or questions. DELFINA MOLINA [facility] Mail code CH 4P [facility] [address] [place] [id number] Ty Mendez - 12/2008 9:11 AM PSTCMA History: PMH/PSH/SH/FH review Patient had lumbar fusion in May 22. She also reports tooth abcess. She has script for an tibiotic tx waiting for her in [place]. 1. Has your pain changed from your [...]
--- OUTSIDE RECORDS SUMMARY | ~2018-11-09 | XMS | Encounter Summary ---
Demographics + + + | Address | [address] | | | [place] [address] | + + + | Home Phone [...] Team Providers + +------+ + | Care Traffic Assistant Name | Role | Phone | [...] as of this encounter Progress Notes Interface, Miller Kiln Dried Salt In - 06/06/2005 2:05 AM [facility] [id number] [facility] Date: 05/29/2005 Clinic: Bariatric [...] a day. She has had workups in [place] including CT and upper GI with small-bowel followthrough which have reportedly been negative. She has some recent changes in her medications including addition of a calcium channel colby and diclofenac. She says her symptoms gets worse every time she takes pain medicine. She is currently taking oxycodone. Her primary doctor in [place] is Dr. Gutierrez. Physical Examination: Vital Signs: [...] will try to arrange for her in [place], so she does not have to come out here. We will call Dr. Gutierrez to try to arrange for this and followup her within 3 months. The patient was seen with Dr. Padgett. Karen Cisneros M.D. Chris Padgett M.D. / SHARIF [id number] / [id number] / [id number] / [id number] Electronically signed by Chris Padgett 06-05-2005 05:29:09 PM documented i n this encounter Plan of Treatment Not on filedocumented as of this encounter Visit Diagnoses Not on filedocumented in this encounter"
--- OUTSIDE RECORDS SUMMARY | ~2018-11-09 | XMS | Encounter Summary ---
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 Diagnosis: [place] I: 1. (296.32) Major depressive disorder, recurrent, moderate. 2. (309.24) Adjustment disorder with anxiety. 3. 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 [place] II: Deferred [place] III: abdominal pain, migraine headache, low back pain. [place] IV: low finances [place] V: GAF 55-60 Plan: Return with next medical follow-up appointment. Check mood, knee surgery, pacing, relaxati on, activity, distraction. Continue cognitive/behavioral therapy. Discuss need for further sessions. Total time spent with patient was approximately 45 minutes. LUKASZ CHARLES PHD [facility] [address] [facility], [address] [place] [address] documented in this encount er Plan of [...] | | | | | | ([facility]) Spondylosis | | | | [...]
--- OUTSIDE RECORDS SUMMARY | ~2018-11-09 | XMS | Encounter Summary ---
Demographics + + + | Address | [address] | | | [place] [address] | + + + | Home Phone [...] | Organization | [facility] | | | and Jairana [...] Team Providers + +------+ + | Care Cardiology Teacher Name | Role | Phone | [...] + + | 09/01/ | Telephone | [facility] | Alanis, | Sinus Pain | | 2019 | | MEDICINE [address] [place] [address] | MD [place] | | | | | [facility] | [address] [place] [address] | | | | | [place] [address] | [place] [address] | | | | | [phone] | [phone] | | | | | | | [...] | | | | | [place] [address] | | | | | | [phone] | | | | | | | | +--------+---------+ + + + documented as of this encounter Visit Diagnoses Not on filedocumented in this encounter"
--- OUTSIDE RECORDS SUMMARY | ~2018-11-09 | XMS | Encounter Summary ---
Demographics + + + | Address | [address] | | | [place] [address] | + + + | Home Phone [...] Team Providers + +------+ + | Care Psychological Operations Officer Name | Role | Phone | + +------+ + | Maria Esther Cintron MD | PCP | Unavailable | + +------+ + Encounter Details +--------+ + + + + | Date | Type | Department | Care Team | Description | +--------+ + + + + | 01/03/ | Telephone | [facility] | Miranda Lambert, | | | 2009 | | Pain Center at | ANP | | | | | [facility] | | | | | | [address] | | | | | | Mail Code: CH15P | | | | | | [facility] | | | | | | and Healing, | | | | | | Floor [place], [place] | | | | | | [address] | | | | | | [phone] | | | +--------+ + + + [...]
--- OUTSIDE RECORDS SUMMARY | ~2018-11-09 | XMS | Encounter Summary ---
Demographics + + + | Address | [address] | | | [place] [address] | + + + | Home Phone [...] Author + + + | Author | [facility] | + + + | Organization | [facility] | + + + | Address [...] Team Providers + +------+ + | Care Government Program Manager Name | Role | Phone [...] | Pain | Diagnoses | Miracle, | Villalba, | | | | Management | LBP (low | NIHARIKA Jean | Lukasz Rhodes, PhD | | | | | back pain) | [address] | | | | | DJD | [address] | [address] | | | | | (degenerativ | [place], [place] | [place] | | | | | e joint | [address] | [address] | | | | | disease) of | | Phone: | | | | | knee Knee | | [phone] | | | | | pain Major | | Fax: | | | | | depressive | | [phone] | | | | | disorder, | [...] 04/13/ | Office | Pain Center at [facility] | Lukasz Charles, | Major Depressive | | 2007 | Visit | 15th Floor [address] | PhD [address] | Disorder, Recurrent | | | | [address] Mail | Ave [place], [place] | Episode, Mild (HCC); | | | | Code: [facility] Center | [address] | LBP (Low Back | | | | for Health and | [phone] | Pain); Migraine | | | | Healing, 15th Floor | | Headache; Adjustment | | | | [place], [place] | | Disorder with | | | | [address] | | Anxiety | | | | [phone] | | | +--------+---------+ + + + [...] as of this encounter Progress Notes Lukasz Charlse - 04/13/2008 10:01 AM PDTPROGRESS NOTE: Belinda [...] plans for her surgical recovery period. Diagnosis: [place] I: 1. (296.31) Major depressive disorder, recurrent, mild. 2. (309.24) Adjustment disorder with anxiety. 3. 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 [place] II: Deferred [place] III: abdominal pain, migraine headache, low back pain. [place] IV: low finances [place] V: GAF 55-60 Plan: return with next medical follow-up appointment. Check mood, pain, relaxation, activ ity, distraction, eating. Ask about headaches, fainting, surgery. Continue cognitive/behav ioral therapy. Total time spent with patient was approximately 45 minutes. LUKASZ CHARLES PHD [facility] [address] [facility] [place] [address] documented in this encount er Plan of Treatment + + +--------+ + + | Name | Type | Priori | Associated Diagnoses | Order Schedule | | | | ty | | | + + +--------+ + + | [facility], | Procedures | Routin | Major Depressive | Ordered: 04/13/2008 | | OFFICE (12-40) | | e | Disorder, Recurrent | [...]
--- OUTSIDE RECORDS SUMMARY | ~2018-11-09 | XMS | Encounter Summary ---
Demographics + + + | Address | [address] | | | [place] [address] | + + + | Home Phone [...] Team Providers + +------+ + | Care Invoice Machine Operator Name | Role | Phone [...] as of this encounter Progress Notes Interface, Habilitation Worker In - 01/12/2005 9:13 AM PDT [id number] [facility] Date: 04/10/2004 Clinic: Rheumatology [...] with sitting and it is worse in chainer and early evening. Her IGF-1 was low [...] 3 months. Caitlin Rivera M.S., F.N.P. / [id number] / [id number] / [id number] / cc: Pedrito Gutierrez M.D. [address] [place] [address] documented i n this encounter Plan of Treatment Not on filedocumented as of this encounter Visit Diagnoses Not on filedocumented in this encounter"
--- OUTSIDE RECORDS SUMMARY | ~2018-11-09 | XMS | Encounter Summary ---
Demographics + + + | Address | [address] | | | [place] [address] | + + + | Home Phone [...] Team Providers + +------+ + | Care Snuff Box Finisher Name | Role | Phone | + +------+ + | Pedrito Gutierrez MD | PCP | | + +------+ + Reason for Visit + + + | Reason | Comments | + + + | GOTTLIEB - Headache | | + + + | Muscle pain | multiple site | + + + | Shoulder pain | | + + + | Back pain | | + + + | Leg Pain | | + + + Encounter Details +--------+---------+ + + + | Date | Type | Department | Care Team | Description | +--------+---------+ + + + | 11/23/ | Office | [facility] | Delfina Molina, | LBP (Low Back Pain); | | 2007 | Visit | Pain Center at | ANP | Arthroplasty of the | | | | [place] | | Left Knee; | | | | [address] | | Spondylosis with | | | | Mail Code: CH15P | | Myelopathy, Lumbar | | | | Center for [facility] | | Region; Fibromyalgia | | | | and | | syndrome 729.1; | | | | Floor [place], [place] | | Encounter for | | | | [address] | | Long-Term (Current) | | | | [phone] | | Use of Opioids; | | [...] | | | | | L4-5 | +--------+---------+ + + + Social History [...] + + + | Blood Pressure | 118/68 | 11/24/2007 9:07 AM | | | | | PDT | | + + + + + | Pulse | 67 | 11/24/2007 9:07 AM | | | | | PDT | | + + + + + | Temperature | 36.8 C (98.2 F) | 11/24/2007 9:07 AM | | | | | PDT | | + + + + + | Respiratory Rate | 16 | 11/24/2007 9:07 AM | | | | | PDT | | + + + + + | Oxygen Saturation | 99% | 11/24/2007 9:07 AM | | | | | PDT | | + + + + + | Inhaled Oxygen | - | - | | | Concentration | | | | + + + + + | Weight | 86.6 kg (191 lb) | 11/24/2007 9:07 AM | | | | | PDT | | + + + + + | Height | 175.3 cm (5' 9") | 11/24/2007 9:07 AM | | | | | PDT | | + + + + + | Body Mass Index | 28.21 | 11/24/2007 9:07 AM | | | | | PDT | | + + + + + documented in this encounter Patient Instructions Patient Instructions Delfina Molina - 11/24/2007 2:21 PM PDTPlease continue with your cur rent pain treatment, schedule a follow up with Dr. Emma SHEEHAN to review our recommendations /plan and to commence therapy as appropriate. documented in this encounter Progress Notes Delfina Molina - 11/24/2007 9:33 AM PDTFormatting of this note might be different from lesli gomez. 11/24/2007 Belinda Meehan is a 47 y.o. female [facility] Return Visit Chief Complaint: Chief Complaint Patient presents with GOTTLIEB - Headache Muscle pain multiple site Shoulder pain Back pain Leg Pain History of Present Illness: Belinda Meehan is a 47 y.o. 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 Belinda Meehan is here today for a follow up visit to review chronic pain management plan of care. Since prior visit 08/13/07 she reports improved right knee pain S/p arthroplasty. However the condition of her lower has not improved "locking here and there". Her worst pa in is the abdomen currently being assessed by Dr. Escobar surgery, upper endoscopy has not been done since these new symptoms. Carafate is effective reliever of this pain. Expectations for this visit include: review pain management and medications since having he r right knee arthroplasty. A Brief Pain Inventory and a pain drawing has be completed, which I reviewed. [facility] Brief Pain Inventory: Right Now: 9 Least in 24 hours: 7 Worst in 24 hours: 10 Average: 8 % Relief (med/treat): 30 General Activity: 9 Mood: 9 Walking Ability: 9 Normal Work: 10 Relations with Others: 10 Enjoyment of Life: 10 Sexual Activity: 0 Sleep: 9 The worst pain today is located, bilateral upper quadrant abdomen described as intermittent , sharp. "like something is riping me apart" Pain improves with carafat and abstaining from food and drink, and is aggrevated within a few minutes of eating and drinking anything. Dur ation of pain a few minutes to the most 60 minutes. Pain is associated with dirrhea denies nausea or vomiting or bloody stool. Lower back described as sharp and aching with left leg shooting pain with numbness in the f oot. Treatment since last visit includes: 1. Medication management:Oxycontin 40 mg Q12hr oxycodone 2 tablets every 4 hours "does not get me through the 30 days with #120 pills". Averages 8 per day. 2. Physical Rehabilitation: has been completed for the right knee post op 3. Mental Health care: NA. Last saw Dr. Ogden 08/13/2007 Since prior visit, Belinda Barnes reports that mood is depressed, she reports being inactive due to the cold weather, snow in her region ; and sleep reported to be poor. She reports stall ing on her home exercise program of swimming [ outdoor pool] over the winter and reports danelle ng frusted by the weather not being better. She requests a prescription for an indoor lap 9 0 degree pool she would like to use. Review of Systems: Bones, Joints, and Muscles: joint pain and muscle pain Gastrointestinal System: negative Genitourinary System: negative Nervous System: Numbness in left leg and headaches [ has been using the oxycodone for] Psychiatric History: depressed mood, sleep disturbance and decreased energy Since prior visit, there have been no changes in past medical history, past surgical histor y, family history, or social history. Current outpatient medications Medication Sig Dispense Refill CALCIUM 600 WITH VITAMIN D OR ( 400 unit of Vit D) 1 tab 4 x daily Cyanocobalamin 1,000 mcg/mL Injection Syringe 1 inj q month Docusate Sodium 100 mg Oral Tablet take 1 tablet (100 mg) by oral route once daily at b edtime as needed Ferrous Sulfate 325 (65) mg Oral Tablet take 1 tablet (325 mg) by oral route 3 times pe r day Furosemide (LASIX) 80 mg OR TABS take 1 tablet (40mg) by oral route once daily levothyroxine 50 mcg Oral Tablet take 1 tablet (50 mcg) by oral route once daily 30 1 2 Multivitamin Oral Tablet 1 tab po bid omeprazole magnesium (PRILOSEC OTC) 20 mg Oral Tablet, Delayed Release (E.C.) take 1 ta blet by mouth twice daily Oxycodone HCl (OXYCONTIN) 40 mg Oral Tablet Sustained Release 12 hr take 1 tablet (40mg ) by mouth every 12 hours 60 0 Oxycodone HCl 5 mg Oral Tablet take 2 tablets (10 mg) by oral route every 4-6 hours as needed for pain POTASSIUM CHLORIDE SR 20 MEQ TAB, PARTICLES/CRYSTALS take 1 tablet (20meq) by oral rout e once daily with food Procaine HCl 1 [...] 1 gram Oral Tablet 1 po qid 14 1 VITAMIN C 500 MG CHEWABLE TAB [...] Father Migraine Additional Family History Mother Migraine Resulting Agency [facility] TEST[facility] Result Impression NAME: BELINDA MEEHAN MR #: [id number] DATE OF EXAM: [id number] PHYSICIAN: EMMA ROJAS LUMBAR SPINE W/O CONTRAST AT 1503 HOURS [...] DISK BULGE. Transcribed By: Armaan Mata : [id number] : 1442 Approved By: Radiologist: Physical Examination: BP 118/68 | Pulse 67 | Temp (Src) 36.8 C (98.2 F) (Oral) | Resp 16 | Ht 1.753 m (5' 9") | Wt 86.637 kg (191 lbs) | SpO2 99% Body mass index is 28.21 kg/(m^2). General appearance: Alert in no acute distress, well groomed, pleasant, cane steady gait Impression: 724.2AF LBP (Low Back Pain) V43.65D Arthroplasty of the Left Knee 721.42 Spondylosis with Myelopathy, Lumbar Region 729.1 Fibromyalgia syndrome 729.1 V58.69 Encounter for Long-Term (Current) Use of Opioids 296.32 Major Depressive Disorder, Recurrent Episode, Moderate 309.24 Adjustment Disorder with Anxiety 722.10H Herniated Lumbar Intervertebral Disc L4-5 Belinda has seen improved function with ambulation and pain control in her knees since havin g both of her knees replaced, she has ongoing chronic lower back and left leg pain due to richardson mbar spondylosis/degenerative disc disease with radiculopathy due to L4-5 disc herniation. She may benefit with repeating a TESI and addressing this area with physical therapy however she would prefer to work with local reactivation and see if things improve, she is willing to travel the distance for PT. Trials of neuropathic agents [ gabapentin, pregablain and ox carbazapine] for symptoms of radiculitis have been helpful in the past, however adverse side effects have prompted an end to therapy. Onset of new symptoms-abdominal pain [characteristics of PUD] have been debilitating for Mirta phipps, she has lost weight [6 lbs] as food/drink is a trigger to this pain. Opioids are not recommended to treat this specifically, not until a diagnosis is known. I discussed with Anu rooney switching her oxycontin to fentanyl patch [avoid ingestion] as she found this helpful in the past, however she plans to begin swimming and and this did not adhere as well. Recommendations/Plan: A 30 minute visit with greater than 50% spent in reviewing the progress notes and counselli ng/education of the patient. 1. Continue with current opioid therapy no changes recommended. - I don't suggest she use the oxycodone for headache mangement. 2. I encouraged Belinda to return to her routine exercise program and focus on the progress she has made to date. If she is interested in seeing Nathalia Arora PT here at the [facility] to address her back pain that would be fine also. - Rx given for local lap pool for daily exercise 3. Continue with pain psychology: Dr. Ogden PhD as scheduled 4. Schedule follow up 3 months or sooner if needed - The pateint was asked to call the clinic with any concerns or questions. 5. Continue with abdominal pain assessment with Dr. Escobar possible PUD vs Hernia. 6. PT here at the [facility] available 7. Repeat TESI as needed. DELFINA MOLINA [facility] Mail code CH 4P [facility] and [address] [address] Ty Omalley - 9:12 AM PDTCMA History: PMH/PSH/SH/FH review 1. Has your pain changed from your last visit? increased 2. Do you have any new weakness or decrease in sensation? yes Feet and leg 3. Do you have any difficulty with urination? Yes 4. How often do you have a bowel movement? more than once daily 5. Are you having difficulties with sexual function? No 6. Do your medications cause any side effects? no 7. Have you had physical therapy appointments since your last visit? No. PT in [place] 8. Have you had psychology appointments since your last visit? yes 9. Have you had any diagnostic studies since your last appointment? no 10. Do you require any medication refills today? Discuss medications. documented in this encounte r Plan of Treatment Not on filedocumented as of this encounter Visit Diagnoses + + | Diagnosis | + + | LBP (low back pain) Lumbago | + + | Arthroplasty of the Left Knee Knee joint replacement by other means | + + | Spondylosis with myelopathy, [...] myelopathy | + + documented in this encounter
--- OUTSIDE RECORDS SUMMARY | ~2018-11-09 | XMS | Encounter Summary ---
Demographics + + + | Address | [address] | | | [place] [address] | + + + | Home Phone [...] Providers + +------+ + | Care Accounting Specialist Name | Role | Phone | [...] | Registratio | Sara Hartley | [address] [facility] | | | | n | [facility] Mailcode: | [address] | | | | | [address] [place], [place] | [place], [place] | | | | | [address] | [address] | | | | | [phone] | [phone] | | | | | | | [...]
--- OUTSIDE RECORDS SUMMARY | ~2018-11-09 | XMS | Encounter Summary ---
Demographics + + + | Address | [address] | | | [place] [address] | + + + | Home Phone [...] Team Providers + +------+ + | Care Cloth Washer Back Tender Name | Role | Phone | + +------+ + | Sulaiman Carrera MD | PCP | Unavailable | + +------+ + Encounter Details +--------+ + + + + | Date | Type | Department | Care Team | Description | +--------+ + + + + | 06/30/ | Telephone | Pain Center at [facility] | Lukasz Ogden, | | | 2013 | | 15th Floor [address] | PhD [address] | | | | | [address] | [place], [place] | | | | | Code: [facility] Center | [address] | | | | | for Health and | [phone] | | | | | Healing, 15th Floor | | | | | | [place], [place] | | | | | | [address] | | | | | | [phone] | | | +--------+ + + + [...]
--- OUTSIDE RECORDS SUMMARY | ~2018-11-09 | XMS | Encounter Summary ---
Demographics + + + | Address | [address] | | | [place] [address] | + + + | Home Phone [...] Author + + + | Author | [facility] | + + + | Organization | [facility] | + + + | Address [...] Providers + +------+ + | Care Certified Tumor Registrar Name | Role | Phone | + [...] | | | | behavior of | [facility] | Orthopaedics | | | | | bone and | & Fractur | [address] | | | | | articular | [address] | [address] | | | | | cartilage | [address] | [address] | | | | | Procedures | [place], | [place], [place] | | | | | REQUEST TO | [place] [address] | [address] | | | | | SURGERY | Phone: | | | | | | MINE MANAGER | [phone] | | | | | | IN BONE | Fax: | | | | | | BIOPSY,OPEN | [phone] | | | | | | DEEP IN | | | | | | | EXCIS/CURET | | | | | | | BENIGN TUMR | | | | | | | CLAV/SCAPULA | | | | | | | IN EXCIS | | | | | | | BENIGN TUMR | | | | | | | CLAV/SCAP,AU | | | | | | | TOGRFT IN | | | | | | [...] | | | | | | | [facility] | Orthopaedics | | | | | | & Fractur | [address] | | | | | | [address] | [address] | | | | | | Nirav Kovacs | [place] | | | | | | [place], | [place], [place] | | | | | | [place] [address] | [address] | | | | | | Phone: | | | | | | | [phone] | | | | | | | Fax: | | | | | | | [phone] | | +--------+--------+ + + + + Encounter Details +--------+---------+ + + + | Date | Type | Department | Care Team | Description | +--------+---------+ + + + | 01/01/ | Office | Orthopaedics at | José Miguel Moreno, | 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 | Visit | [facility] [address] | | Uncertain Behavior | | | | [facility] [address] | | of Bone and | | | | Mailcode: 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 | | | | [facility] | | (Primary Dx) | | | | [place], [place] | | | | | | [address] | | | | | | [phone] | | | +--------+---------+ + + + [...] + documented in this encounter Progress Notes Maylin Bird - 01/03/2009 3:50 PM PDTAddended by: [...] 08/2007 right knee Hx lumbar fusion 05/2008 L5-G8ktnygc with bone spur removals Hx appendectomy Hx cholecystectomy Hx section Hx hysterectomy Gastric bypass Mayra Padgett wt 278 01/18 Paniculectomy Allergies: Allergies Allergen Reactions Keflex (Cephalexin) Sulfa (Sulfonamides) Codeine Penicillins Clindamycin Cipro (Ciprofloxacin) Tramadol Morphine IM ( only in [facility]) made gut pain worse 08/27/06: Trial of oral MSIR caused leg swelling Clarithromycin Hives Mainly in the legs Unytfcs-zargogvfam-mdi-caff Balance problems Amitriptyline Grand mal seizures Medications: [...] signs are noted as recorded by the Seam Steamer. General: Alert, awake, and oriented x3. No [...] No: | | | | | | | | | | | | [id number] Name | | | | | | : BELINDA MEEHAN | | | | | | Birthday: | | | | | | 1960 Sex: | | | | | | F Alias:Patient | | | | | | Location: [id number]: | | | | | | Outpatient | | | | | | ActiveOrdering | | | | | | Physician: JOSÉ MIGUEL | | | | | | MARYSOL MORENO SCAPULA | | | | | | COMPLETE completed on | | | | | | 01/01/2009 11:55 | | | | | | AMAccession # | | | | | | [id number]:LEFT | | | | | | SCAPULA | | | | | | COMPLETE: 01/01/2009 | | | | | | Dictated | | | | | | 01/01/2009COMPARISON: | | | | | | Bilateral shoulders, | | | | | | 07/24/2008.FINDINGS: | | | | | | The osseous structures | | | | | | are intact with no | | | | | | fracture | | | | | | ormalalignment. There | | | | | | is persistent | | | | | | calcification within the | | | | | | distalsupraspinatus | | | | | | tendon. There is mild | | | | | | spurring at | | | | | | theacromioclavicular | | | | | | joint. The visualized | | | | | | scapula is | | | | | | normal. Medialclavicl | | | | | | e is not well | | | | | | appreciated on this | | | | [...] | | | | | | disease.3. Incomplete | | | | | | ly evaluated medial left | | | | | | clavicle.END | | | | | | IMPRESSION:I have | | | | | | personally viewed this | | | | | | procedure/exam and | | | | | | reviewed this | | | | | | report.STATUS | | | | | | PRELIMINARY - UNSIGNED | | | | | | / Ailyn Cisse | | | | | | have personally viewed | | | | | | this procedure/exam and | | | | | | reviewed this | | | | | | report.Author: BONNIE | | | | | | NOHELIA | | | | | | M.AdaReviewer: BONNIE | | | | | | [...]
--- OUTSIDE RECORDS SUMMARY | ~2018-11-09 | XMS | Encounter Summary ---
Demographics + + + | Address | [address] | | | [place] [address] | + + + | Home Phone [...] Team Providers + +------+ + | Care Fuel System Maintenance Supervisor Name | Role | Phone [...] 11/24/ | Office | Pain Center at [facility] | Lukasz Charles, | Major Depressive | | 2006 | Visit | 15th Floor [address] | PhD [address] | Disorder, Recurrent | | | | [address] | Ave [place], [place] | Episode, Moderate | | | | Code: [facility] Center | [address] | ([facility]); Spondylosis | | | | for Health and | [phone] | with Myelopathy, | | | | Healing, 15th Floor | | Lumbar Region; Left | | | | [place], [place] | | Knee Pain; | | | | [address] | | Adjustment Disorder | | | | [phone] | | with Anxiety; Other | | [...] some pl ans for more activity. Diagnosis: [place] I: 1. (296.32) Major depressive disorder, recurrent, moderate. 2. (309.24) Adjustment disorder with anxiety. 3. 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 [place] II: Deferred [place] III: abdominal pain, migraine headache, low back pain. [place] IV: low finances [place] V: GAF 55-60 Plan: Return in 2 weeks. Check mood, pacing, relaxation, activity, distraction. Continue cognit gerda/behavioral therapy. Set goals for summer activity. Total time spent with patient was approximately 45 minutes. LUKASZ CHARLES PHD [facility] [address] [facility], [address]th [place] [address] documented in this encount er Plan of [...]
--- OUTSIDE RECORDS SUMMARY | ~2018-11-09 | XMS | Encounter Summary ---
Demographics + + + | Address | [address] | | | [place] [address] | + + + | Home Phone [...] | Organization | [facility] | | | and Jairana [...] Team Providers + +------+ + | Care Podiatry Doctor Name | Role | Phone | [...] | | | | sciatica | [place] [address] | | | | | | S/P lumbar | Phone: | | | | | | fusion | [phone] | | | | | | Sacroiliac | Fax: | | | | | | inflammation | [phone] | | | | | | (HCC) [...] | Specialty | Physical | Diagnoses | Rob | [facility] | | | Services [...] | | | | sciatica | [place] [address] | [address] | | | | | S/P lumbar | Phone: | Phone: | | | | | fusion | [phone] | [phone] | | | | | Sacroiliac | Fax: | Fax: | | | | | inflammation | [phone] | [phone] | | | | | ([facility]) | | | | | | | [...] | | sciatica | [address] | [address] Phone: | | | | | | [place], | [phone] | | | | | | [place] | Fax: | | | | | | [address] | [phone] | | | | | | Phone: | | | | | | | [phone] | | | | | | | Fax: | | | | | | | [phone] | | + + + + + + + Encounter Details +--------+---------+ + + + | Date | Type | Department | Care Team | Description | +--------+---------+ + + + | 09/23/ | Office | [facility] | Lencho Rivas, | Sacroiliac | | 2019 | Visit | PHYSIATRY [address] | PA-C [address] | inflammation (HCC) | | | | [place], | [address] [place] | (Primary Dx); Acute | | | | [place] [address] | [place] [address] | midline low back | | | | [phone] | [phone] | pain with bilateral | | | | | | sciatica; S/P lumbar | | [...] + | Blood Pressure | 99/57 | 09/23/2018904 PDT | + + + + | Pulse | 65 | 09/23/2018904 PDT | + + + + | [...] | 91.2 kg (201 lb 1 | 09/23/2018904 PDT | | | oz) | | + + + + | Height | 172.7 cm (5' 8") | 09/23/2018904 PDT | + + + + | Body Mass Index | 30.57 | 09/23/2018 0905 PDT | + + + + documented in this encounter Patient Instructions Patient Instructions Lencho Rivas PA-C - 09/23/2018 9:20 PDTReferral to aquatic therapy ([facility]). Referral to massage therapy. Due to severity [...] press against a nerve. Date Last Reviewed: 08/13/201719993571-9628 [employer]. [address] [place] [address], [place] [address]. All righ ts reserved. This information is not intended as a substitute for professional medical care. Always follow your healthcare professional's instructions. documented in this encounter Progress Notes Lencho Rivas PA-C - 09/23/2018 0920 PDTFormatting of this note might be different from th jennifer gomez. Lencho Rivas PA-C [address] [facility] [place] [address] FAX: CHIEF COMPLAINT: Chief Complaint Patient presents [...] Procedure: COLONOSCOPY; Surgeon: Luther Brito MD; Location: [facility] MEDICAL PROCEDURE UNIT DILATION AND CURETTAGE OF UTERUS ELBOW SURGERY FINGER TRIGGER RELEASE 2002 FINGER TRIGGER RELEASE 2009 GASTRIC BYPASS SURGERY 2004 HYSTERECTOMY 05/14/1980 JOINT REPLACEMENT Bilateral 2007 2007 KNEE ARTHROSCOPY 2005 LAPAROSCOPY 01/27/2015 LAPAROTOMY 2008 ROTATOR CUFF REPAIR 2005 SPINE SURGERY TONSILLECTOMY 1964 UPPER GASTROINTESTINAL ENDOSCOPY N/A 12/18/2017 Procedure: EGD; Surgeon: Luther Brito MD; Location: [facility] MEDICAL PROCEDURE UNIT CURRENT MEDICATIONS: Current Outpatient [...] Days Morelia Thapa MD 1,000 mcg at 09/15/18 1121 ALLERGIES: Allergies Allergen Reactions Ensure Diarrhea Food Diarrhea Lactose Codeine Sulfate Nausea Only Levofloxacin Hives, Itching and Rash Butalbital Ropinirole Amitriptyline Hcl Other (See Comments) Confused and questionable for seizures Wzlnwpqhqi-Ciyu-Edgyjipd Hives and Rash Cephalexin Hives Ciprofloxacin Hives [...] has no apparent deficits with short or residential memory. Cranial nerves 2-12 appear grossly intact. [...] a good candidate for aquatic therapy. Referra magdalene ardon today I did feel that Belinda Meehan would be a good candidate for size therapy. Referral placed today Patient is currently enrolled in a pain clinic in [place], [place]. 5) Patient will follow up with me as needed. I spent 30 minutes in visit with Belinda Meehan today with the majority of time spent cou nselling the patient on her diagnosis, options for her care, and coordinating her care. ELECTRONICALLY SIGNED BY: Lencho Rivas PA-C, 09/23/2018 documented in this encou nter Plan of Treatment +--------+---------+ + + + | Date | Type | Specialty | Care Team | Description | +--------+---------+ + + + | 11/15/ | Office | Internal Medicine | Alanis, | | | 2018 | Visit | | MD [place] | | | | | | [facility] [address] | | | | | | [place] [address] | | | | | | [phone] | | | | | | | | +--------+---------+ + + + + +--------+ + + | Name | Priori | Associated Diagnoses | Order Schedule | | | ty | | | + +--------+ + + | [facility] Aquatic Therapy | Routin | Acute midline low | Ordered: 09/23/2018 | | | e | back pain with | | | | | bilateral sciatica | | | | | S/P lumbar fusion | | | | | Sacroiliac | | | | | inflammation (HCC) | | | | | Osteoporosis with | | | | | current pathological | | | | | fracture with | | | | | delayed healing, | | | | | unspecified | | | | | osteoporosis type, | | | | | subsequent encounter | | + +--------+ + + | Massage Therapy - AMB Referral | Routin | Acute midline low | Ordered: 09/23/2018 | | | e | back pain with | | | | | bilateral sciatica | | | | | S/P lumbar fusion | | | | | Sacroiliac | | | | | inflammation (HCC) | | | | | Osteoporosis with | | | | | current pathological | | | | | fracture with | | | | | delayed healing, | | | | | unspecified | | | | | osteoporosis type, | | | | | subsequent encounter | | + +--------+ + + documented [...]
--- OUTSIDE RECORDS SUMMARY | ~2018-11-09 | XMS | Encounter Summary ---
Demographics + + + | Address | [address] | | | [place] [address] | + + + | Home Phone [...] Providers + +------+ + | Care Property Damage Claims Adjustor Name | Role | Phone | + [...] 2005 | Visit-ECX | Diabetes and | [address] | | | | | Clinical Nutrition | [place], [place] | | | | | [address] | [address] | | | | | [facility] | [phone] | | | | | Mailcode: OPC5 | | | | | | Outpatient Clinic | | | | | | Building [place], | | | | | | [place] [address] | | | | | | [phone] | | | +--------+ + + + [...]
--- OUTSIDE RECORDS SUMMARY | ~2018-11-09 | XMS | Encounter Summary ---
Demographics + + + | Address | [address] | | | [place] [address] | + + + | Home Phone [...] Team Providers + +------+ + | Care Chemical Waste Management Technician Name | Role | Phone | [...] | | 2004 | anned | [address] [facility] | | | | | | [facility] | | | | | | [place], [place] | | | | | | [address] | | | +--------+ + + + [...] + documented in this encounter Results ORDERS ALAYNA (12/13/2004 12:00 AM PDT) + + + | Narrative | Performed At | + + + | | | + + + documented in this encounter Visit Diagnoses Not on filedocumented in this encounter"
--- OUTSIDE RECORDS SUMMARY | ~2018-11-09 | XMS | Encounter Summary ---
Demographics + + + | Address | [address] | | | [place] [address] | + + + | Home Phone [...] Providers + +------+ + | Care Rn Resource Nurse Name | Role | Phone | + +------+ + PCP | Unavailable | + +------+ + Encounter Details +--------+ + + + + | Date | Type | Department | Care Team | Description | +--------+ + + + + | 07/24/ | Office | [facility] SUR[facility]ERY | Clinic, [...] as of this encounter Progress Notes Interface, Food Packer In - 08/30/2005 2:07 AM PST [id number] [facility] Date: 07/24/2005 Clinic: Surgery Mrs. Meehan is now about a year post-laparoscopic gastric bypass and she has had a panniculectomy. Her weight now is in the normal range, but she has had several episodes of acute cramping abdominal pain. She has had a workup which consisted of CAT scan, endoscopy, and upper GI series. None of these have shown any abnormalities. I think the possibility still exists that she does have an internal hernia and we will explore that laparoscopically. I have explained the procedure to her and the fact we may need to do this procedure open if we find something. She understands and consents to surgery. There is a brief workup in her chart for surgery. Chris Padgett M.D. ROSA / [id number] / [id number] / [id number] / [id number] Electronically signed by Chris Padgett 08-29-2005 03:28:14 PM documented i n this encounter Plan of Treatment Not on filedocumented as of this encounter Visit Diagnoses Not on filedocumented in this encounter"
--- OUTSIDE RECORDS SUMMARY | ~2018-11-09 | XMS | Encounter Summary ---
Demographics + + + | Address | [address] | | | [place] [address] | + + + | Home Phone [...] Author + + + | Author | [facility] | + + + | Organization | [facility] | + + + | Address [...] Team Providers + +------+ + | Care Pen Tester Name | Role | Phone | [...] 09/23/ | Office | [facility] Center at [facility] | Lukasz Charles, | Major Depressive | | 2006 | Visit | 15th Floor [address] | PhD [address] | Disorder, Recurrent | | | | [address] Mail | Ave [place], [place] | Episode, Moderate | | | | Code: [facility] Center | [address] | (HCC); Chronic | | | | for Health and | [phone] | Abdominal Pain; | | | | Healing, 15th Floor | | Herniated Lumbar | | | | [place], [place] | | Intervertebral Disc | | | | [address] | | L4-5; 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 Diagnosis: Martelle I: 1. (296.32) Major depressive disorder, recurrent, moderate. 2. (309.24) Adjustment disorder with anxiety. 3. 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 Martelle II: Deferred Martelle III: abdominal pain, migraine headache, low back pain. Martelle IV: low finances Martelle V: GAF 50 Plan: Return in 2 weeks. Check preparation for move and for niece's visit, Curves gym, pacing, r elaxation, activity, distraction. Check managing Pain... book. Discuss need for further vi sits. Total time spent with patient was approximately 45 minutes. LUKASZ CHARLES [facility] [address] [place] [address] documented in this encount er Plan of [...] Moderate | | | | | | ([facility]) Chronic | | | | | | [...]
--- OUTSIDE RECORDS SUMMARY | ~2018-11-09 | XMS | Encounter Summary ---
Demographics + + + | Address | [address] | | | [place] [address] | + + + | Home Phone [...] Providers + +------+ + | Care Community Chest Officer Name | Role | Phone | [...] 2010 | | [facility] | [address] | (actonel) | | | | [place] [facility] | [place], [place] | | | | | [place] [address] | [address] | | | | | [address] | [phone] | | | | | Road [facility] | | | | | | [facility] | | | | | | [facility] [place], | | | | | | [place] [address] | | | | | | [phone] | | | +--------+--------+ + + + [...]
--- OUTSIDE RECORDS SUMMARY | ~2018-11-09 | XMS | Encounter Summary ---
Demographics + + + | Address | [address] | | | [place] [address] | + + + | Home Phone [...] Team Providers + +------+ + | Care Mortuary Beautician Name | Role | Phone | + [...] NE | | | | | | [address] | [facility] | | | | | | [place], [place] | [facility] | | | | | | [address] | [id number] | | | | | | | [place], [place] | | | | | | | [address] | | | | | | | Phone: | | | | | | | [phone] | | | | | | | Fax: | | | | | | | [phone] | +--------+--------+ + + + + Encounter Details +--------+---------+ + + + | Date | Type | Department | Care Team | Description | +--------+---------+ + + + | 06/23/ | Office | [facility] Comprehensive | Adrien Smith, | Fibromyalgia | | 2013 | Visit | Pain Center at | MD [address] [facility] | syndrome 729.1 | | | | [facility] | [facility] [address] | (Primary Dx); LBP | | | | [address] | [place], [place] | (low back pain); | | | | Mail Code: CH15P | [address] | Chronic Bilateral | | | | [facility] | [phone] | Shoulder Pain; Post | | | | and | | laminectomy | | | | Floor [place], [place] | | syndrome; Chronic | | | | [address] | | migraine | | | | [phone] | | | +--------+---------+ + + + [...] evaluation of a patient with fibromyalgia, the [facility] Fibromyalgia clinic suggests laboratory screening to [...] therapy in the management of fibromyalgia (C arville SF et al. Karen Rheum Dis 2008;67:536 541). Recent data suggests that fibromyalgia patients may have reduced WINDOWS INFRASTRUCTURE ENGINEER opioid receptors (Reji solomon RE, et al. Decreased central mu-opioid receptor availability in fibromyalgia. J Neurosci . 27(37):31030-2, 2006Feb 24.) and there are no controlled [...] documented in our notes. ADRIEN SMITH MD Minilab Operator, [facility] Waistband Setter, Pain Medicine Professor, Anesthesiology & Perioperative Medicine Brandon Phipps Md - 06/23/2013 2:21 PM PST [facility] Return Visit with [...] as she has worked with him be [facility]. This visit can be in tandem with [...] steroid injections, which she has had in e past before her lumbar surgeries and recently in [place]. She has short-term relief from thes e treatments. I would like her to return to see Dr. Adrien Smith to discuss these treatment options. Consult to [facility] physical therapy: A supervised physical therapy [...] has been treated at the [facility] for back pain with the following problem [...] Overview Note: Surgery 05/15/08 Dr Ricky Garnett [facility] karlos to get operative reports Osteopenia 08/24/2007 [...] and a pain drawing which I reviewed. [facility] Brief Pain Inventory: (ten= worst possible pain or complete interference) Right Now: 9 (06/23/131316) Least in 24 hours: 7 (06/23/131316) Worst in 24 hours: 10 (06/23/131316) Average: [...] right knee Lumbar fusion 05/2008, ' & L5-F9hujyhd with bone spur removals Appendectomy Cholecystectomy section [...] Hives Mainly in the legs Clindamycin Codeine Kuswnhq-Cpizxyauby-Yek-Caff Balance problems Fioricet W/Codeine (Hwdejchrxm-Fanxflbutg-Zzf-Cod) Keflex (Cephalexin) Morphine IM ( only in [facility]) made gut pain worse 08/27/06: Trial of oral MSIR caused leg swelling Penicillins Sulfa (Sulfonamide Antibiotics) Tramadol Ms. Meehan reports no side effects. The Review of Systems provided by Ms. Meehan and documented by the HOOF TRIMMER was reviewed. Austyn tional comments: 1. BONES, [...] evaluation of a patient with fibromyalgia, the [facility] Fibromyalgia clinic suggests laboratory screening to i nclude: vitamin B6, B12, Sedimentation Rate (ESR), Insulin Like Growth Factor-1 (IGF-1). W e think it is worth checking these if they have not been checked recently, other labs have b jessie checked, we reviewed them today. The mainstay [...] opioid therapy in the management of fibromyalgia ([place] SF et al. Karen Rheum D is 2008;67:536 541). Recent data suggests that fibromyalgia patients may have reduced WINDOWS INFRASTRUCTURE ENGINEER opioid receptors (Xavi FRANK, et al. Decreased central mu-opioid receptor availability in fib romyalgia. J Neurosci. 27(37):18808-3, 2006Feb 24.) and there are no controlled [...] upwards every 3 - 7 days. Belinda Barnes Shefali was provi ded written instructions, we had a detailed PARQ discussion regarding this medication and it s side effects, and she was instructed to call with any problems. 4. Follow-up PRN as needed with Rosi COCHRAN MD,PhD [facility] Marquita, Maris Lopez MA - 06/23/2013 1:18 PM [...]
--- OUTSIDE RECORDS SUMMARY | ~2018-11-09 | XMS | Encounter Summary ---
[...] Providers + +------+ + | Care Animal Physiologist Name | Role | Phone | + [...] | | | | Clinical Nutrition | [place], [place] | | | | | [address] | [address] | | | | | [facility] | [phone] | | | | | Mailcode: OPC5 | | | | | | Outpatient Clinic | | | | | | [facility] | | | | | | [place] [address] | | | | | | [phone] | | | +--------+ + + + [...] + + + | [facility] | [address] | [place] [address] | | | LABORATORY | | | [...] | uIU/ml | | | | | [facility] | | | | | | Laboratories. | | | | + + + + + + + + | Specimen | + + | | + + + + + + + | Performing | Address | City/State/Zipcode | Phone Number | | Organization | | | | + + + + + | [facility] | [address] | [place] [address] | | | LABORATORY | | | [...] | [facility] | [address] | [place] [address] | | | LABORATORY | | | [...] | | | SERUM | performed by [facility] | | | | | | [facility] | | | | | | Laboratories. | | | | + + + + + + + + | Specimen | + + | | + + + + + + + | Performing | Address | City/State/Zipcode | Phone Number | | Organization | | | | + + + + + | [facility] | [address] | [place] [address] | | | LABORATORY | | | [...] DEPARTMENT OF | [address] | [place], [place] [address] | | | PATHOLOGY | [address] | | | + + + + + | [facility] | [address] | [place] [address] | | | PATHOLOGY | [address] | | | + + + + + documented in this encounter Visit Diagnoses Not on filedocumented in this encounter"
--- OUTSIDE RECORDS SUMMARY | ~2018-11-09 | XMS | Encounter Summary ---
Demographics + + + | Address | [address] | | | [place] [address] | + + + | Home Phone [...] Team Providers + +------+ + | Care Bar Tacker Sewing Machine Name | Role | Phone | + +------+ + PCP | Unavailable | + +------+ + Encounter Details +--------+ + + + + | Date | Type | Department | Care Team | Description | +--------+ + + + + | 07/24/ | Office | Hematology | [place], | | | 2005 | Visit-ECX | Oncology [address] | MD [address] | | | | | [address] | [address] | | | | | Road Mailcode: | [place] [address] | | | | | [address] [facility] | [phone] | | | | | [place], | | | | | | [place] [address] | | | | | | [phone] | | | +--------+ + + + [...]
--- OUTSIDE RECORDS SUMMARY | ~2018-11-09 | XMS | Encounter Summary ---
Demographics + + + | Address | [address] | | | [place] [address] | + + + | Home Phone [...] Providers + +------+ + | Care Incident Response Specialist Name | Role | Phone | [...] as of this encounter Progress Notes Interface, Firer Automatic Stoker In - 01/12/2005 6:20 AM PDT [id number] [facility] Clinic Date: 11/18/2004 Clinic: General [...] patient to send pictures to our financial sales manager and core composer feeder for evaluation for medicare for panniculectomy. Described [...] authorization for panniculectomy. Melisa Thorne / SHARIF [id number] / [id number] / [id number] / [id number] cc: Chris Padgett M.D. Joanna Valdez MD [facility] [address] [place] [address] Electronically signed by Kenisha Melton 11-26-2004 05:00:55 PM documented i n this encounter Plan of Treatment Not on filedocumented as of this encounter Visit Diagnoses Not on filedocumented in this encounter"
--- OUTSIDE RECORDS SUMMARY | ~2018-11-09 | XMS | Encounter Summary ---
Demographics + + + | Address | [address] | | | [place] [address] | + + + | Home Phone [...] + + + | Author | [facility] | + + + | Organization | [facility] | + + + | Address | [...] Providers + +------+ + | Care Flame Gouger Name | Role | Phone | + [...] | | | Metabolism | bypass | [address] | [address] | | | | | Hypovitamino | [address], | Ave | | | | | sis D B12 | [address] | [place], [place] | | | | | nutritional | [place], [place] | [address] | | | | | deficiency | [address] | Phone: | | | | | Other | Phone: | [phone] | | | | | protein-jose manuel | [phone] | Fax: | | | | | nick | Fax: | [phone] | | | | | malnutrition | [phone] | | | | | | Weight | | | | | | | gain | | | | | | | Procedures | | | | | | | CONSULT TO | | | | | | | ENDO | | | | | | | [address] | | | +--------+--------+ + + + + Encounter Details +--------+---------+ + + + | Date | Type | Department | Care Team | Description | +--------+---------+ + + + | 08/09/ | Office | Kraig Turner | Beto Meeks MD | IGT (impaired | | 2014 | Visit | [facility] | [address] | glucose tolerance) | | | | [facility] | [place], [place] | (Primary Dx); | | | | [facility] [address] | [address] | Metabolic syndrome X | | | | [address] | [phone] | 250.80; Essential | | | | Road [facility] | | hypertension 401.9; | | | | [facility] | | Unstable balance | | | | Pavilion [place], | | | | | | [place] [address] | | | | | | [phone] | | | +--------+---------+ + + + [...] Hives Mainly in the legs Clindamycin Codeine Bfysfxk-Mllxdhqcbo-Scu-Caff Balance problems Fioricet W/Codeine (Lvjsnngskh-Hoqumkbjmn-Keb-Cod) Keflex (Cephalexin) Morphine IM ( only in [facility]) made gut pain worse 08/27/06: [...] U/L 41 ANION GAP 8 VITAMIN B12, [id number] pg/ml >2000 (H) HEMOGLOBIN A1C <=5.6 % [...] SERUM 15.0-85.0 pg/ml 222.9 (H) VITAMIN B12, [id number] pg/ml > 2000 HEMOGLOBIN A1C <=5.6 % 5.7 POC CB at 3:40 PM Assessment Belinda J Shefali is a 53 y.o. female who has [...] home vi a a long drive to [place]. She needs further evaluation of her right hip and FACILITIES MANAGEMENT EXECUTIVE. This c an be most easily accomplished [...] + +--------+ + + + | [place] COLLECTION | Routin | 08/09/2013 | IGT [...] | | | A1C,POC | | | JESSICAAM | | | | | | BEN [...] [facility] | [address] | [place], [place] | | | BEN GURROLA OF CARE | [address] | [address] | | | TESTS | | | [...] | [facility] | [address] | [place], [place] | | | IZABELA LATAH OF [facility] | [address] | [address] | | | TESTS | | | [...]
--- OUTSIDE RECORDS SUMMARY | ~2018-11-09 | XMS | Encounter Summary ---
Demographics + + + | Address | [address] | | | [place] [address] | + + + | Home Phone [...] Author + + + | Author | [facility] | + + + | Organization | [facility] | + + + | Address [...] Providers + +------+ + | Care Recreation Therapy Teacher Name | Role | Phone | [...] | | Migraine | MD Edy | [address] | | | | | headache | [address] | [address] | | | | | Procedures | [address] | Mail Code: | | | | | CONSULT TO | Rd | [facility] | | | | | NEUROLOGY | [place], [place] | for Health | | | | | | [address] | and Healing, | | | | | | Phone: | 8th floor | | | | | | [phone] | [place], [place] | | | | | | | [address] | | | | | | | Phone: | | | | | | | [phone] | | | | | | | Fax: | | | | | | | [phone] | +--------+--------+ + + + + Reason [...] Health | [address] | Edema; | | | | [facility] | [place], [place] | Weak; | | | | Pavilion [address] | [address] | Migraine Headache | | | | [address] | [phone] | | | | | Road [facility] | | | | | | [facility] | | | | | | [facility] [place], | | | | | | [place] [address] | | | | | | [phone] | | | +--------+---------+ + + + [...] and treatment plan. I agree with documen vikyion by Dr. Stephens. Please see attached notes [...] 1.30 FREE T4 0.6-1.6 ng/dL 0.7 Edy Mcbirde - 03/01/2008 9 :37 PM PDT ENDOCRINOLOGY [...] (ciprofloxacin) Tramadol Morphine IM ( only in [facility]) made gut pain worse 08/27/06: Trial of oral MSIR caused leg swelling Clarithromycin Hives Mainly in the legs Current outpatient prescriptions : aspirin chewable (BABY ASPIRIN) 81 mg Oral Tablet, Chewa ble, 2 daily, Disp: , Rfl: buPROPion XL (WELLBUTRIN XL) 300 mg Oral Tablet Sustained Release 24 hr, take 1 tablet (300 mg) by oral route once daily, Disp: , Rfl: ovrmlaixex-dzdhjydqmuxjf-mypylqqe (FIORICET) 50-325-40 mg Oral Tablet, take 2 [...] LE edema Results for BELINDA MEEHAN Molly (ID#[id number]) as of 03/01/2008 9:22:28 PM Ref. Range [...] K/cu mm 220 Results for BELINDA MEEHAN (ID#[id number]) as of 03/01/2008 9:22:28 PM Ref. Range [...] be contributing to her hypotension. She nee ds good a PCP. We will continue to discuss with her options at [facility] with, hopefully, coordin atcount includes the [facility] of services. RTC in 3 mos, earlier [...] + + + + + | [facility] DEPARTMENT OF | [facility] | [place] [address] | | | PATHOLOGY | [address] | | | + + + + + | [facility] DEPARTMENT OF | [address] | [place] [address] | | | PATHOLOGY | [address] [...] Performed At | + + + | [id number] Estimated GFR > 60 mL/min/1.73 sq m if non- | [facility] | | Lebanese [id number] Estimated GFR > 60 mL/min/1.73 sq m if | DEPARTMENT | | Lebanese GFR is estimated using the MDRD equation recommended by | PATHOLOGY | | the National Kidney Disease Education Program. Estimated GFR | | | Interpretive Information: <60 mL/min/1.73 sq m Chronic | | | Kidney Disease <15 mL/mon/1.73 sq m Kidney Failure | | | Estimated GFR greater than 60mL/min/1.73 is of limited clinical | | | Value. The MDRD equation is not valid in the following situations: | | | - Patients under 18 years of age - Severe malnutrition or obesity | | | - Vegetarian diet - Rapidly changing kidney function New | | | Creatinine Reference ranges effective 08. | | + + + + + + + + | Performing | Address | City/State/Zipcode | Phone Number | | Organization | | | | + + + + + | [facility] | [address] [facility] | [place] [address] | | | PATHOLOGY | [address] | | | + + + + + | [facility] | [address] [facility] | [place] [address] | | | PATHOLOGY | [address] [...] + + + | Reference Range change | | | effective 04/05/07 [facility] ([facility]) | | | [facility] [address] | | | [place] [address] | | + + + + + + + + | Performing | Address | City/State/Zipcode | Phone Number | | Organization | | | | + + + + + | [facility] | [address] | [place] [address] | | | LABORATORY | | | [...] + + + | Reference range change | | | effective 04/05/07 [facility] ([facility]) | | | [facility] | | | [address] | | | [place] [address] | | + + + + + + + + | Performing | Address | City/State/Zipcode | Phone Number | | Organization | | | | + + + + + | [facility] | [address] | [place] [address] | | | LABORATORY | | | [...]
--- OUTSIDE RECORDS SUMMARY | ~2018-11-09 | XMS | Encounter Summary ---
Demographics + + + | Address | [address] | | | [place] [address] | + + + | Home Phone [...] + +------+ + | Care Associate Professor Of Pathology Name | Role | Phone | + [...] as of this encounter Progress Notes Interface, Kitchen Steward/Stewardess In - 10/03/2006 2:33 AM PDT [id number] GEOVANNI SKELTON J [id number] Clinic Date: 09/14/2006 Clinic: Rheumatology Belinda Meehan [...] every 3 days changed; Trileptal 225 mg; Pass Christian 10/325; and Actonel. Objective: Weight is 214, [...] to this. Caitlin Rivera M.S., F.N.P. / [id number] / [id number] / [id number] / [id number] cc: Pedrito Gutierrez M.D. [address] [facility] [address], [place] [address] [facility] Electronically signed by Caitlin Rivera 10-02-2006 09:24:29 AM documented in this encounter Plan of Treatment Not on filedocumented as of this encounter Visit Diagnoses Not on filedocumented in this encounter"
--- OUTSIDE RECORDS SUMMARY | ~2018-11-09 | XMS | Encounter Summary ---
Demographics + + + | Address | [address] | | | [place] [address] | + + + | Home Phone [...] Team Providers + +------+ + | Care Tree Fruit And Nut Farming Supervisor Name | Role | Phone | + +------+ + PCP | Unavailable | + +------+ + Encounter Details +--------+ + + + + | Date | Type | Department | Care Team | Description | +--------+ + + + + | 07/28/ | Results | Neurology Stroke | Indira Bender, | | | 2003 | Only | Center [address] | DO Neurology [address] | | | | | [facility] | [address] | | | | | Mailcode: CR131 | [place], [place] | | | | | Outpatient Clinic | [address] | | | | | [facility], | [phone] | | | | | [place] [address] | | | | | | [phone] | | | +--------+ + + + [...] | | | | | 2,SERUM | [facility] | | | | | | Laboratories. | | | | + + + + + + + + | Specimen | + + | | + + + + + + + | Performing | Address | City/State/Zipcode | Phone Number | | Organization | | | | + + + + + | [facility] | [address] | [place] [address] | | | LABORATORY | | | | + + + + + documented in this encounter Visit Diagnoses Not on filedocumented in this encounter"
--- OUTSIDE RECORDS SUMMARY | ~2018-11-09 | XMS | Encounter Summary ---
Demographics + + + | Address | [address] | | | [place] [address] | + + + | Home Phone [...] Team Providers + +------+ + | Care Marinator Name | Role | Phone | + [...] [address] | | | | | | [place], [place] | | | | | | [address] | | | | | | [phone] | | | +--------+--------+ + + + [...]
--- OUTSIDE RECORDS SUMMARY | ~2018-11-09 | XMS | Encounter Summary ---
Demographics + + + | Address | [address] | | | [place] [address] | + + + | Home Phone [...] Team Providers + +------+ + | Care Diversity Specialist Name | Role | Phone | [...] Naeem Mcrae | | | | | [address] | [place], [place] | | | | | Health and Healing, | [address] | | | | | 6th [facility], | [phone] | | | | | [place] [address] | | | | | | [phone] | | | +--------+ + + + [...]
--- OUTSIDE RECORDS SUMMARY | ~2018-11-09 | XMS | Encounter Summary ---
Demographics + + + | Address | [address] | | | [place] [address] | + + + | Home Phone [...] Team Providers + +------+ + | Care Voip Network Technician Name | Role | Phone | + +------+ + | Maria Esther Cintron MD | PCP | Unavailable | + +------+ + Encounter Details +--------+ + + + + | Date | Type | Department | Care Team | Description | +--------+ + + + + | 10/06/ | Abstract | Digestive Health | Patricia Banegas, | | | 2012 | | [place] at [facility] [address] | PARACHUTE INSPECTOR [address] | | | | | [address] | , [facility] 350 | | | | | Mailcode: Center | [place], [place] | | | | | for Health and | [address] | | | | | [facility], [facility] 2 | [phone] | | | | | [place], [place] | | | | | | [address] | | | | | | [phone] | | | +--------+ + + + [...]
--- OUTSIDE RECORDS SUMMARY | ~2018-11-09 | XMS | Encounter Summary ---
Demographics + + + | Address | [address] | | | [place] [address] | + + + | Home Phone [...] + + | Author | [facility] | + + + | Organization | [facility] | + + + | [...] Team Providers + +------+ + | Care Sumo Wrestler Name | Role | Phone | + [...] [address] | | | | | [place] [facility] | [place], [place] | | | | | [address] | [address] | | | | | [facility] | [phone] | | | | | Road Physicians | | | | | | [facility] | | | | | | [facility] [place], | | | | | | [place] [address] | | | | | | [phone] | | | +--------+--------+ + + + [...]
--- OUTSIDE RECORDS SUMMARY | ~2018-11-09 | XMS | Encounter Summary ---
Demographics + + + | Address | [address] | | | [place] [address] | + + + | Home Phone [...] Organization | [facility] | | | and Jairana [...] Providers + +------+ + | Care Mechanical Fitter Name | Role | Phone | [...] + + | 09/16/ | Telephone | [facility] | Alanis, | Results, Imaging | | 2018 | | MEDICINE [address] [place] [address] | MD Petrona | | | | | [facility] | [address] [place] [address] | | | | | [place] [address] | [place] [address] | | | | | [phone] | [phone] | | | | | | | [...] | | | | | [place] [address] | | | | | | [phone] | | | | | | | | +--------+---------+ + + + documented as of this encounter Visit Diagnoses Not on filedocumented in this encounter"
--- OUTSIDE RECORDS SUMMARY | ~2018-11-09 | XMS | Encounter Summary ---
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, Lumbar | | | | [facility] | | Region; Herniated | | | | [address] | | Lumbar | | | | Mail Code: CH15P | | Intervertebral Disc | | | | [place] for [facility] | | L4-5; Left Knee | | | | and Healing, | | Pain; Opioid | | | | Floor [place], [place] | | [place]ependence, | | | | [address] | | Continuous ([facility]); | | | | [phone] | | Migraine Headache; | | | | | | Fibromyalgia | | | | | | syndrome 729.1; | | | | | | Major Depressive | | | | | | Disorder, Recurrent | | | | | | Episode, Moderate | | | | | | ([facility]); Adjustment | | | | | [...] is a 46 y.o. female [facility] Comprehensive Pain Center Return Visit [...] and Independent Home Exercise Program DELFINA MOLINA [facility] Comprehensive Pain Center Mail code CH 4P [place] for Health and [address] [address] Ailyn Foster - 01/05/20 07 1:29 [...] medication refills today? yes documented in this [facility] Plan of Treatment Not on filedocumented [...]
--- OUTSIDE RECORDS SUMMARY | ~2018-11-09 | XMS | Encounter Summary ---
Demographics + + + | Address | [address] | | | [place] [address] | + + + | Home Phone [...] Providers + +------+ + | Care Graphics Edit Technician Name | Role | Phone | [...] | | [address] Mail | Ave [place], [place] | Episode, Moderate | | | | Code: [facility] Center | [address] | ([facility]); Left Knee | | | | for Health and | [phone] | Pain; Neck Pain; | | | | Healing, 15th Floor | | Spondylosis with | | | | [place], [place] | | Myelopathy, Lumbar | | | | [address] | | Region; Chronic | | | | [phone] | | Abdominal Pain; | | | [...] has using good self-care skil ls. Diagnosis: [place] I: 1. (296.32) Major depressive disorder, recurrent, moderate. 2. (309.24) Adjustment disorder with anxiety. 3. 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 [place] II: Deferred [place] III: abdominal pain, migraine headache, low back pain. [place] IV: low finances [place] V: GAF 55-60 Plan: Return in 2 weeks. Check niece's visit, pacing, relaxation, activity, distraction. Contin ue cognitive/behavioral therapy. Total time spent with patient was approximately 45 minutes. LUKASZ CHARLES PHD Comprehensive [facility] [address] [facility], 4th [place] [address] documented in this encount er Plan of [...] | | | ([facility]) Left Knee | | | | [...]
--- OUTSIDE RECORDS SUMMARY | ~2018-11-09 | XMS | Encounter Summary ---
Demographics + + + | Address | [address] | | | [place] [address] | + + + | Home Phone [...] + +------+ + | Care Head Filter Press Tender Name | Role | Phone [...] | 2005 | | Center at [facility] [address] | [address] | | | | | [address] | [facility] | | | | | Mailcode: Center | [place] [address] | | | | | for Health and | [phone] | | | | | Healing, Building [address] | | | | | | [place], [place] | | | | | | [address] | | | | | | [phone] | | | +--------+ + + + [...]
--- OUTSIDE RECORDS SUMMARY | ~2018-11-09 | XMS | Encounter Summary ---
Demographics + + + | Address | [address] | | | [place] [address] | + + + | Home Phone [...] Providers + +------+ + | Care Coil Binder Name | Role | Phone | + +------+ + | Sulaiman Carrera MD | PCP | Unavailable | + +------+ + Encounter Details +--------+ + + + + | Date | Type | Department | Care Team | Description | +--------+ + + + + | 08/23/ | Document-Sc | UNKNOWN DEPARTMENT | Unknown . | | | 2007 | anned | [address] [facility] | | | | | | [facility] | | | | | | [place], [place] | | | | | | [address] | | | +--------+ + + + [...] + + | BONE DENSITOMETRY | | 08/24/2007 | | Results for this | | | | 12:00 AM | | procedure are in the | | | | PDT | | results section. | + +--------+ + + + documented in this encounter Results BONE DENSITOMETRY (08/24/2007 12:00 AM PDT) + + + | Narrative | Performed At | + + + | | | | | | + + + + + | Procedure Note | + + | Vilma Gibbons - 11/03/2013 10:22 AM PDT | + + documented in this encounter Visit Diagnoses Not on filedocumented in this encounter"
--- OUTSIDE RECORDS SUMMARY | ~2018-11-09 | XMS | Encounter Summary ---
Demographics + + + | Address | [address] | | | [place] [address] | + + + | Home Phone [...] Team Providers + +------+ + | Care Capper Machine Operator Name | Role | Phone | + +------+ + | Pedrito Gutierrez MD | PCP | | + +------+ + Encounter Details +--------+ + + + + | Date | Type | Department | Care Team | Description | +--------+ + + + + | 12/26/ | Telephone | MARK Basilio | Lukasz Ogden, | | | 2007 | | Pain Center at | PhD [address] | | | | | [facility] | [place], [place] | | | | | [address] | [address] | | | | | Mail Code: CH15P | [phone] | | | | | [facility] | | | | | | and , | | | | | | Floor [place], [place] | | | | | | [address] | | | | | | [phone] | | | +--------+ + + + [...]
--- OUTSIDE RECORDS SUMMARY | ~2018-11-09 | XMS | Encounter Summary ---
Demographics + + + | Address | [address] | | | [place] [address] | + + + | Home Phone [...] Team Providers + +------+ + | Care Ems Helicopter Pilot Name | Role | Phone | + +------+ + PCP | Unavailable | + +------+ + Encounter Details +--------+ + + + + | Date | Type | Department | Care Team | Description | +--------+ + + + + | 02/14/ | Abstract | General Surgery | Chris Padgett, | | | 2004 | | [address] | [address] [facility] | | | | | [facility] | [facility] | | | | | Mailcode: L223A | [place], [place] | | | | | Physicians Sharmila | [address] | | | | | [address] [place], | [phone] | | | | | [place] [address] | | | | | | [phone] | | | +--------+ + + + [...]
--- OUTSIDE RECORDS SUMMARY | ~2018-11-09 | XMS | Encounter Summary ---
Demographics + + + | Address | [address] | | | [place] [address] | + + + | Home Phone [...] Team Providers + +------+ + | Care Flexographic Printing Machinist Name | Role | Phone | [...] as of this encounter Progress Notes Interface, Transport Technician In - 08/30/2005 2:07 AM PST [id number] GEOVANNI Barnes Clinic Date: 07/24/2005 Clinic: Surgery [...] for surgery. Chris Padgett M.D. ROSA / [id number] / [id number] / [id number] / [id number] Electronically signed by Chris Padgett 08-29-2005 03:28:14 PM documented i n this encounter Plan of Treatment Not on filedocumented as of this encounter Visit Diagnoses Not on filedocumented in this encounter"
--- OUTSIDE RECORDS SUMMARY | ~2018-11-09 | XMS | Encounter Summary ---
Demographics + + + | Address | [address] | | | [place] [address] | + + + | Home Phone [...] Team Providers + +------+ + | Care Exchange Floor Manager Name | Role | Phone | [...] as of this encounter Progress Notes Interface, Government Program Manager In - 11/05/2005 2:06 AM PDT [id number] GEOVANNI Barnes [id number] Clinic Date: 10/20/2005 Clinic: Bariatric Surgery Clinic Subjective: Ms. Meehan returns today for continued evaluation of her abdominal pain. She has had a gastric bypass followed by a panniculectomy approximately 1 year ago. She has had diffuse sharp and crampy abdominal pain which lasts up to 45 minutes. She says "it takes her breath away." She went to the emergency room at [place] last night and got some IV pain [...] . Wali Valentine M.D. CONNOR / SHARIF [id number] / [id number] / [id number] / [id number] Electronically signed by Luther Valentine 11-04-2005 11:36:40 AM documented i n this encounter Plan of Treatment Not on filedocumented as of this encounter Visit Diagnoses Not on filedocumented in this encounter
--- OUTSIDE RECORDS SUMMARY | ~2018-11-09 | XMS | Encounter Summary ---
Demographics + + + | Address | [address] | | | [place] [address] | + + + | Home Phone [...] Team Providers + +------+ + | Care Flotation Tender Helper Name | Role | Phone [...] of this encounter Progress Notes Interface, Director Business Travel In - 02/15/2006 2:03 AM PDT [id number] GEOVANNI BELINDA Molly [id number] Clinic Date: 01/29/2006 Clinic: Endocrinology Belinda Meehan [...] her visits to the Emergency Department in [place], she apparently had elevated "liver enzyme levels" and her blood pressure was up to 160/98. She subsequently underwent diagnostic testing that apparently included CT imaging of her abdomen and upper GI endoscopy, abdominal ultrasound, and other testing; the results of which have apparently been normal. She started going to [employer] approximately 2 weeks ago which has increased her level of physical activity. She has only occasional headaches, due in part to ongoing treatment with propanolol. She apparently was referred by Dr. Padgett to see a actuarial intern here at [facility] for further evaluation of severe recurrent [...] evaluated recently at the Emergency Department in [place]. Her alkaline phosphatase level today is about [...] would benefit from being evaluated by a actuarial intern. According to the patient, no gastroenterologists are available in [place]. She needs to petition her primary care provider and her insurance company to give the necessary authorization to allow her to be evaluated by a actuarial intern. Plan: 1. Await results of serum 25-hydroxyvitamin [...] She needs to be seen by a actuarial intern. 5. Return to see me again in 3 months. Beto Meeks M.D. PD / HS [id number] / [id number] / [id number] / cc: Pedrito Gutierrez M.D. [address] [place] [address] Chris Padgett M.D. Electronically signed by Beto Meeks 02-14-2006 02:02:55 AM documented i n this encounter Plan of Treatment Not on filedocumented as of this encounter Visit Diagnoses Not on filedocumented in this encounter
--- OUTSIDE RECORDS SUMMARY | ~2018-11-09 | XMS | Encounter Summary ---
Demographics + + + | Address | [address] | | | [place] [address] | + + + | Home Phone [...] Author + + + | Author | [facility] | + + + | Organization | [facility] | + + + | Address [...] Providers + +------+ + | Care Steel Placer Name | Role | Phone | + [...] | - Disregard | | | | [facility] | | | | | | [address] | | | | | | Mail Code: CH15P | | | | | | [facility] | | | | | | and | | | | | | Floor [place], [place] | | | | | | [address] | | | | | | [phone] | | | +--------+ + + + [...]
--- OUTSIDE RECORDS SUMMARY | ~2018-11-09 | XMS | Encounter Summary ---
Demographics + + + | Address | [address] | | | [place] [address] | + + + | Home Phone [...] | Organization | [facility] | | | and [...] Team Providers + +------+ + | Care Basic Sciences Dean Name | Role | Phone | [...] + + | 09/04/ | Refill | [facility] | Alanis, | Medication Refill | | 2018 | | MEDICINE [address] [place] [address] | MD Petrona | | | | | [facility] | [address] [place] [address] | | | | | [place] [address] | [place] [address] | | | | | [phone] | [phone] | | | | | | | [...] | | | | | [place] [address] | | | | | | [phone] | | | | | | | | +--------+---------+ + + + documented as of this encounter Visit Diagnoses Not on filedocumented in this encounter"
--- OUTSIDE RECORDS SUMMARY | ~2018-11-09 | XMS | Encounter Summary ---
Demographics + + + | Address | [address] | | | [place] [address] | + + + | Home Phone [...] Author | [facility] | + + + | Organization | [facility] | + + + | Address | [...] Team Providers + +------+ + | Care Ornamental Ironworker Helper Name | Role | Phone | [...] | | | | Clinical Nutrition | [place], [place] | | | | | [address] | [address] | | | | | [facility] | [phone] | | | | | Mailcode: OPC5 | | | | | | Outpatient Clinic | | | | | | [facility] | | | | | | [place] [address] | | | | | | [phone] | | | +--------+ + + + [...] + + + | [facility] | [address] | [place] [address] | | | LABORATORY | | | [...] | uIU/ml | | | | | [facility] | | | | | | Laboratories. | | | | + + + + + + + + | Specimen | + + | | + + + + + + + | Performing | Address | City/State/Zipcode | Phone Number | | Organization | | | | + + + + + | [facility] | [address] | [place] [address] | | | LABORATORY | | | [...] | [facility] | [facility] [address] | [place] [address] | | | PATHOLOGY | [address] | | | + + + + + | [facility] DEPARTMENT OF | [address] | [place] [address] | | | PATHOLOGY | [address] | | | + + + + + documented in this encounter Visit Diagnoses Not on filedocumented in this encounter"
--- OUTSIDE RECORDS SUMMARY | ~2018-11-09 | XMS | Encounter Summary ---
Demographics + + + | Address | [address] | | | [place] [address] | + + + | Home Phone [...] Providers + +------+ + | Care Board Setter Name | Role | Phone | [...] 01/26/ | Office | Rheumatology at | HrCaitlin kaba, | Fibromyalgia | | 2007 | Visit | [facility] [address] | MANAGER ADOBE | syndrome 729.1 | | | | [facility] [address] | | (Primary Dx); | | | | Physicians [place] | | Fibromyalgia | | | | [place], [place] | | | | | | [address] | | | | | | [phone] | | | +--------+---------+ + + + [...] + + +--------+ + + | [place] INJECT TRIGGER | Procedures | Routin | [...]
--- OUTSIDE RECORDS SUMMARY | ~2018-11-09 | XMS | Encounter Summary ---
Demographics + + + | Address | [address] | | | [place] [address] | + + + | Home Phone [...] Providers + +------+ + | Care Band Sawmill Operator Name | Role | Phone | + +------+ + | Pedrito Gutierrez MD | PCP | | + +------+ + Encounter Details +--------+---------+ + + + | Date | Type | Department | Care Team | Description | +--------+---------+ + + + | 09/23/ | Office | Comprehensive Pain | Nathalia Arora | Spondylosis with | | 2006 | Visit | [facility] | [address] | Myelopathy, Lumbar | | | | [place] [address] | [address] [place], | Region; Herniated | | | | [address] Mail Code: | [place] [address] | Lumbar | | | | CH15P [place] for | | Intervertebral Disc | | | | Health and Healing, | | L4-5; Neck Pain; | | | | 15th Floor | | Fibromyalgia | | | | [facility] [place] | | syndrome 729.1 | | | | [address] | | | | | | [phone] | | | +--------+---------+ + + + [...] Medicare Progress Note Date: 09/23/2006 Belinda Meehan [id number] Start of Care: 06/23/2006 Referring Provider: [...] 05/29/2006 Insurance: Medicare Number of used/authorized visits: 8 Medicare certification from: 09/13/2006 through 10/12/2006 Subjective: [...] patient has increased her walking time at [employer] to 30-40 minutes daily, no t able [...] therapist to address other issues. Treatment began: 5 Treatment ended: 1199 Nathalia Arora, Physical Therapist License #[id number] documented in this encoun ter Plan of Treatment + + +--------+ + + | Name | Type | Priori | Associated Diagnoses | Order Schedule | | | | ty | | | + + +--------+ + + | MD THERAPEUTIC | Procedures | Routin | Spondylosis [...] MD THERAPEUTIC | Procedures | Routin | Spondylosis [...]
--- OUTSIDE RECORDS SUMMARY | ~2018-11-09 | XMS | Encounter Summary ---
Demographics + + + | Address | [address] | | | [place] [address] | + + + | Home Phone [...] Providers + +------+ + | Care Forestry Technical Officer Name | Role | Phone [...] [address] | | | | | [facility] | [address] | | | | | Mailcode: L223A | [place], [place] | | | | | Physicians [address] | [address] | | | | | [address] [place], | [phone] | | | | | [place] [address] | | | | | | [phone] | | | +--------+ + + + [...] DEPARTMENT OF | [address] | [place] [address] | | | PATHOLOGY | [address] | | | + + + + + | [facility] DEPARTMENT OF | [address] | [place] [address] | | | PATHOLOGY | [address] [...] | + + + + + | [facility] | [address] [facility] | [place] [address] | | | PATHOLOGY | [address] | | | + + + + + | [facility] | [address] [facility] | [place] [address] | | | PATHOLOGY | [address] | | | + + + + + documented in this encounter Visit Diagnoses Not on filedocumented in this encounter"
--- OUTSIDE RECORDS SUMMARY | ~2018-11-09 | XMS | Encounter Summary ---
Demographics + + + | Address | [address] | | | [place] [address] | + + + | Home Phone [...] + + + | Author | [facility] | + + + | Organization | [facility] | + + [...] Team Providers + +------+ + | Care Muffler Mechanic Name | Role | Phone | [...] 2005 | Visit-ECX | Diabetes and | [address] | | | | | Clinical Nutrition | [place], [place] | | | | | [address] | [address] | | | | | [facility] | [phone] | | | | | Mailcode: OPC5 | | | | | | Outpatient Clinic | | | | | | Building [place], | | | | | | [place] [address] | | | | | | [phone] | | | +--------+ + + + [...]
--- OUTSIDE RECORDS SUMMARY | ~2018-11-09 | XMS | Encounter Summary ---
Demographics + + + | Address | [address] | | | [place] [address] | + + + | Home Phone [...] Providers + +------+ + | Care Elementary Art Teacher Name | Role | Phone [...] [address] | | | | | [facility] | [place], [place] | | | | | Health and Healing, | [address] | | | | | 6th floor [place], | [phone] | | | | | [place] [address] | | | | | | [phone] | | | +--------+---------+ + + + [...] [facility] [address] [facility], 6th [place] [address] Malena Hurst - 07/30 4:09 PM PSTS: [...]
--- OUTSIDE RECORDS SUMMARY | ~2018-11-09 | XMS | Encounter Summary ---
Demographics + + + | Address | [address] | | | [place] [address] | + + + | Home Phone [...] Author + + + | Author | [facility] | + + + | Organization | [facility] | + + + | Address | [...] Team Providers + +------+ + | Care Stockroom Coordinator Name | Role | Phone | [...] | | | 2005 | Activity | [address] | | | | | | [facility] Mailcode: | | | | | | [id number] [place], [place] | | | | | | [address] | | | | | | [phone] | | | +--------+ + + + [...]
--- OUTSIDE RECORDS SUMMARY | ~2018-11-09 | XMS | Encounter Summary ---
Demographics + + + | Address | [address] | | | [place] [address] | + + + | Home Phone [...] Team Providers + +------+ + | Care Rag Cutting Machine Feeder Name | Role | Phone [...] | | | | Internal | T, SIX HORSE HITCH DRIVER [address] | Bandar Stroud MD | | | | | hemorrhoid | [address] | [address] | | | | | Rectal pain | AVE | [address] | | | | | Procedures | [place], [place] | [place], | | | | | CONSULT TO | [address] | [place] | | | | | COLORECTAL | | [address] | | | | | SURGERY | | Phone: | | | | | | | [phone] | | | | | | | Fax: | | | | | | | [phone] | +--------+--------+ + + + + Encounter Details +--------+---------+ + + + | Date | Type | Department | Care Team | Description | +--------+---------+ + + + | 10/03/ | Office | Digestive Health | Bandar Valenzuela, | Anal or Rectal Pain | | 2008 | Visit | Center at [facility] [address] | [address] | (Primary Dx) | | | | [address] | [address] | | | | | Mailcode: [place] | [place], [place] | | | | | [facility] and | [address] | | | | | [facility] 2 | [phone] | | | | | [place], [place] | | | | | | [address] | | | | | | [phone] | | | +--------+---------+ + + + [...] stool. She had a normal colonoscopy at [facility] in 2005 PMH: Past [...] 08/2007 right knee Hx lumbar fusion 05/2008 L5-G4uudcfh with bone spur removals Hx appendectomy Hx [...] (Ciprofloxacin) Tramadol Morphine IM ( only in [facility]) made gut pain worse 08/27/06: Trial of oral MSIR caused leg swelling Clarithromycin Hives Mainly in the legs Wiktmfh-ywpayfhxei-gax-caff Balance problems Amitriptyline Grand mal seizures SH: [...] + + +--------+ + + | [facility] | Procedures | Routin | Anal or Rectal | Ordered: 10/05/2008 | | ANOSCOPY | | e | Pain | | + + +--------+ + + documented as of this encounter Visit Diagnoses + + | Diagnosis | + + | Anal or rectal pain - Primary | + + documented in this encounter
--- OUTSIDE RECORDS SUMMARY | ~2018-11-09 | XMS | Encounter Summary ---
Demographics + + + | Address | [address] | | | [place] [address] | + + + | Home Phone [...] Team Providers + +------+ + | Care Substitute Teacher Name | Role | Phone | [...] | | 2003 | anned | [address] [facility] | | | | | | [facility] | | | | | | [place], [place] | | | | | | [address] | | | +--------+ + + + [...]
--- OUTSIDE RECORDS SUMMARY | ~2018-11-09 | XMS | Encounter Summary ---
Demographics + + + | Address | [address] | | | [place] [address] | + + + | Home Phone [...] Providers + +------+ + | Care Press And Blow Machine Tender Name | Role | Phone [...] [address] | | | | | [address] | [place], [place] | | | | | Health and Healing, | [address] | | | | | 6th floor [facility], | [phone] | | | | | [place] [address] | | | | | | [phone] | | | +--------+ + + + [...]
--- OUTSIDE RECORDS SUMMARY | ~2018-11-09 | XMS | Encounter Summary ---
Demographics + + + | Address | [address] | | | [place] [address] | + + + | Home Phone [...] Team Providers + +------+ + | Care Worm Packer Name | Role | Phone | + +------+ + | Maria Esther Cintron MD | PCP | Unavailable | + +------+ + Encounter Details +--------+ + + + + | Date | Type | Department | Care Team | Description | +--------+ + + + + | 08/25/ | Abstract | Digestive Health | Patricia Banegas, | | | 2011 | | [place] at [facility] [address] | [address] | | | | | [address] | [facility] 350 | | | | | Mailcode: Center | [place], [place] | | | | | for Health and | [address] | | | | | [facility] [place], [facility] 2 | [phone] | | | | | [place], [place] | | | | | | [address] | | | | | | [phone] | | | +--------+ + + + [...]
--- OUTSIDE RECORDS SUMMARY | ~2018-11-09 | XMS | Encounter Summary ---
Demographics + + + | Address | [address] | | | [place] [address] | + + + | Home Phone [...] Team Providers + +------+ + | Care Cosmetology Professor Name | Role | Phone | [...]
--- OUTSIDE RECORDS SUMMARY | ~2018-11-09 | XMS | Encounter Summary ---
Demographics + + + | Address | [address] | | | [place] [address] | + + + | Home Phone [...] Providers + +------+ + | Care Aircraft Body Repairer Name | Role | Phone | [...]
--- OUTSIDE RECORDS SUMMARY | ~2018-11-09 | XMS | Encounter Summary ---
Demographics + + + | Address | [address] | | | [place] [address] | + + + | Home Phone [...] Team Providers + +------+ + | Care Geographic Information Systems Analyst Name | Role | Phone [...] [id number] | | | | | | [place], [place] | | | | | | [address] | | | | | | [phone] | | | +--------+ + + + [...]
--- OUTSIDE RECORDS SUMMARY | ~2018-11-09 | XMS | Encounter Summary ---
Demographics + + + | Address | [address] | | | [place] [address] | + + + | Home Phone [...] + | Organization | [facility] | | | and [...] Providers + +------+ + | Care Sports Official Name | Role | Phone | [...] + + | 08/14/ | Refill | [facility] | Alanis, | Medication Refill | | 2018 | | MEDICINE [address] [place] [address] | MD Petrona | | | | | [facility] | [address] [place] [address] | | | | | [place] [address] | [place] [address] | | | | | [phone] | [phone] | | | | | | | [...] | | | | | [place] [address] | | | | | | [phone] | | | | | | | | +--------+---------+ + + + documented as of this encounter Visit Diagnoses Not on filedocumented in this encounter"
--- OUTSIDE RECORDS SUMMARY | ~2018-11-09 | XMS | Encounter Summary ---
Demographics + + + | Address | [address] | | | [place] [address] | + + + | Home Phone [...] Team Providers + +------+ + | Care Key Ringer Name | Role | Phone | + [...] as of this encounter Progress Notes Interface, Plaster Form Maker In - 09/13/2005 2:06 AM PST [id number] [facility] Date: 01/02/2005 Clinic: Endocrinology [...] months. Beto Meeks M.D. PD / HS [id number] / [id number] / [id number] / [id number] cc: Chris Padgett M.D. Electronically signed by Beto Meeks 09-12-2005 02:22:56 AM documented i n this encounter Plan of Treatment Not on filedocumented as of this encounter Visit Diagnoses Not on filedocumented in this encounter"
--- OUTSIDE RECORDS SUMMARY | ~2018-11-09 | XMS | Encounter Summary ---
Demographics + + + | Address | [address] | | | [place] [address] | + + + | Home Phone [...] Team Providers + +------+ + | Care Bank Runner Name | Role | Phone | [...] as of this encounter Progress Notes Interface, Biological Sciences Instructor In - 01/12/2005 8:09 AM PDT [id number] [facility] Date: 10/23/2003 Clinic: Ms. [...] ahead. Chris Padgett M.D. CD / HS [id number] / [id number] / [id number] / [id number] documented i n this encounter Plan of Treatment Not on filedocumented as of this encounter Visit Diagnoses Not on filedocumented in this encounter"
--- OUTSIDE RECORDS SUMMARY | ~2018-11-09 | XMS | Encounter Summary ---
Demographics + + + | Address | [address] | | | [place] [address] | + + + | Home Phone [...] Providers + +------+ + | Care Sugar Presser Name | Role | Phone | [...] Health | [address] | | | | | [facility] | [place], [place] | | | | | [address] | [address] | | | | | [facility] | [phone] | | | | | Road Mailcode: | | | | | | [id number] Physicians | | | | | | Sharm[place] [facility] | | | | | | [place] [address] | | | | | | [phone] | | | +--------+ + + + [...]
--- OUTSIDE RECORDS SUMMARY | ~2018-11-09 | XMS | Encounter Summary ---
Demographics + + + | Address | [address] | | | [place] [address] | + + + | Home Phone [...] Team Providers + +------+ + | Care Ap Operator Name | Role | Phone | [...] [address] | [address] | surg next month) | | | | [address] Mailcode: | [address] | | | | | [facility] | [place], [place] | | | | | Health and Healing, | [address] | | | | | 6th floor [place], | [phone] | | | | | [place] [address] | | | | | | [phone] | | | +--------+ + + + [...]
--- OUTSIDE RECORDS SUMMARY | ~2018-11-09 | XMS | Encounter Summary ---
Demographics + + + | Address | [address] | | | [place] [address] | + + + | Home Phone [...] Author + + + | Author | [facility] | + + + | Organization | [facility] | + + + | [...] Team Providers + +------+ + | Care Kohinoor Operator Name | Role | Phone | + +------+ + PCP | Unavailable | + +------+ + Encounter Details +--------+ + + + + | Date | Type | Department | Care Team | Description | +--------+ + + + + | 01/02/ | Telephone | Digestive Health | Kenisha Melton, | | | 2005 | | [place] [address] | [facility] [address] | | | | | [facility] | [facility] | | | | | Mailcode: [id number] | [place], [place] | | | | | Physicians [address] | [address] | | | | | [place], [place] | [phone] | | | | | [address] | | | | | | [phone] | | | +--------+ + + + [...]
--- OUTSIDE RECORDS SUMMARY | ~2018-11-09 | XMS | Encounter Summary ---
Demographics + + + | Address | [address] | | | [place] [address] | + + + | Home Phone [...] Providers + +------+ + | Care Online Marketing Manager Name | Role | Phone | [...] Status post | MD Chris | Density Chh | | | Required | | gastric | [address] | [address] | | | | | bypass for | [address] | Ave | | | | | obesity | [address] | Mailcode: | | | | | Procedures | [place], [place] | [address] | | | | | CONSULT TO | [address] | for Health | | | | | BONE | Phone: | and Healing | | | | | DENSITOMETRY | [phone] | [place], [place] | | | | | | Fax: | [address] | | | | | | [phone] | Phone: | | | | | | | [phone] | | | | | | | Fax: | | | | | | | [phone] | +--------+ + + + + + [...] 2005 | Visit | Center [address] | [address] | Pain (Primary Dx); | | | | [address] Mailcode: | [address] | Status Post Gastric | | | | [facility] | [place], [place] | Bypass for Obesity | | | | Health and [facility], | [address] | | | | | 6th floor [place], | [phone] | | | | | [place] [address] | | | | | | [phone] | | | +--------+---------+ + + + [...] and capsule endoscopy. Is schedu led with pain svc. Thu. 05/29. Hx. vertebral fx. with [...] | | | BOWEL W MX | [place]: Upper GI | | | | | [...] | | | | | the remaining | | | | | | stomach. Contrastrapi | | | | | | dly empties from the | | | | | | stomach into the small | | | | | | bowel. The small bowel | | | | | | motility and contours | | | | | | appear normal. There | | | | | | wereno areas of small | | | | | | bowel wall thickening or | | | | | | aperistalsis | | | | | | noted.Contrast partly | | | | | | filled the ascending | | | | | | colon by one hour 55 | | | | | | minutes.Terminal ileum | | | | | | appears normal. | | | | | | IMPRESSION:1. Expecte | | | | | | d postsurgical changes | | | | | | of Zoe-en-Y gastric | | | | | | bypassprocedure.2. Sm | | | | | | all sliding hiatal | | | | | [...] | | + +---------+ + + | [facility] | | | | [...]
--- OUTSIDE RECORDS SUMMARY | ~2018-11-09 | XMS | Encounter Summary ---
Demographics + + + | Address | [address] | | | [place] [address] | + + + | Home Phone [...] Team Providers + +------+ + | Care Soda Dialyzer Name | Role | Phone | + [...] as of this encounter Progress Notes Interface, Pickle Processor In - 08/14/2005 2:05 AM PST [id number] [facility] Date: 08/06/2005 Clinic: Rheumatology [...] of antiinflammatory diet that one of the ripsaw grader in [place] has written a book about, and I have had a patient do extremely well with it in terms of her IBS and fibromyalgia pain and fatigue. Belinda is interested in this and will pursue it. 3. I have given her a lot of articles that she can pass onto her physicians in [place]. She would like somebody there to learn [...] 4 months. Caitlin Rivera M.S., F.N.P. / [id number] / [id number] / [id number] / [id number] cc: Pedrito Gutierrez M.D. [address] [place] [address] Electronically signed by Caitlin Rivera 08-13-2005 03:37:47 PM documented i n this encounter Plan of Treatment Not on filedocumented as of this encounter Visit Diagnoses Not on filedocumented in this encounter"
--- OUTSIDE RECORDS SUMMARY | ~2018-11-09 | XMS | Encounter Summary ---
Demographics + + + | Address | [address] | | | [place] [address] | + + + | Home Phone [...] Providers + +------+ + | Care Special Agent Group Insurance Name | Role | Phone | [...] as of this encounter Progress Notes Interface, Laboratory Apparatus Glass Grinder In - 03/29/2005 5:05 AM PDT [id number] [facility] Date: 03/20/2005 Clinic: Rheumatology [...] and sense of disability is 5/10. Her outsole caser needs a note from me that she [...] for fibromyalgia, although I do not believe Belidna is one of them. She still has all the myofascial trigger points, tender points, and chronic widespread pain which is the criteria for the diagnosis of fibromyalgia by the [place] [employer]. She also has the [...] to treat restless legs. There is a airfield manager in [place] who is using large doses to reduce [...] 4 months. Caitlin Rivera M.S., F.N.P. / [id number] / [id number] / [id number] / [id number] cc: Pedrito Gutierrez M.D. [address] [place] [address] Belinda Meehan [address] [place] [address] Electronically signed by Caitlin Rivera 03-28-2005 01:43:14 PM documented i n this encounter Plan of Treatment Not on filedocumented as of this encounter Visit Diagnoses Not on filedocumented in this encounter"
--- OUTSIDE RECORDS SUMMARY | ~2018-11-09 | XMS | Encounter Summary ---
Demographics + + + | Address | [address] | | | [place] [address] | + + + | Home Phone [...] [facility] | [address] | teaching, guidance, | | | | [facility] | [place], [place] | and counseling | | | | [facility] [address] | [address] | | | | | [address] [place] | [phone] | | | | | [facility] | | | | | | [facility] | | | | | | Pavilion [place], | | | | | | [place] [address] | | | | | | [phone] | | | +--------+ + + + [...]
--- OUTSIDE RECORDS SUMMARY | ~2018-11-09 | XMS | Encounter Summary ---
Demographics + + + | Address | [address] | | | [place] [address] | + + + | Home Phone [...] | Organization | [facility] | | | and Jairana [...] Team Providers + +------+ + | Care Gastroenterology Manager Name | Role | Phone | + +------+ + | Petrona Thapa | PCP | | | MD | | | + +------+ + Encounter Details +--------+ + + + + | Date | Type | Department | Care Team | Description | +--------+ + + + + | 09/01/ | Abstract | [facility] | Provider, | | | 2019 | | GASTROENTEROLOGY | MD Colin [address] | | | | | [address] [facility] | Sulma Boyd | | | | | [address] | [place] [address] | | | | | [address] | | | | | | [phone] | | | +--------+ + + + [...] Petrona | | | | | | [facility] [address] | | | | | | [place] [address] | | | | | | [phone] | | | | | | | | +--------+---------+ + + + documented as of this encounter Visit Diagnoses Not on filedocumented in this encounter"
--- OUTSIDE RECORDS SUMMARY | ~2018-11-09 | XMS | Encounter Summary ---
Demographics + + + | Address | [address] | | | [place] [address] | + + + | Home Phone [...] Providers + +------+ + | Care Gun Number Name | Role | Phone | + +------+ + | Sulaiman Carrera MD | PCP | Unavailable | + +------+ + Encounter Details +--------+ + + + + | Date | Type | Department | Care Team | Description | +--------+ + + + + | 12/05/ | Ancillary | Registration [address] | Chris Padgett, | | | 2004 | Registratio | [address] | [address] [facility] | | | | n | [facility] Mailcode: | [address] | | | | | [address] [place], [place] | [place], [place] | | | | | [address] | [address] | | | | | [phone] | [phone] | | | | | | | [...]
--- OUTSIDE RECORDS SUMMARY | ~2018-11-09 | XMS | Encounter Summary ---
Demographics + + + | Address | [address] | | | [place] [address] | + + + | Home Phone [...] Providers + +------+ + | Care Electronic Wirer Name | Role | Phone | + +------+ + | Sulaiman Carrera MD | PCP | Unavailable | + +------+ + Encounter Details +--------+ + + + + | Date | Type | Department | Care Team | Description | +--------+ + + + + | 09/14/ | Ancillary | Registration [address] | Caitlin Rivera, | | | 2006 | Registratio [address] | JIMBO | | | | n | [facility] Mailcode: | | | | | | [address] [place], [place] | | | | | | [address] | | | | | | [phone] | | | +--------+ + + + [...] + | CHEST, 2 | Radiologist 1: BLOSSOM | | | | | [place] | Joanna GOODWINEXAM: PA | | | | | STEREO | and lateral chest. | | | | | | COMPARISON: 10/23/03. | | | | | | FINDINGS: The cardiac | | | | | | and mediastinal | | | | | | contours are | | | | | | normal. Thelungs are | | | | | | clear. There is no | | | [...] + + + + + | [facility] | [address] | [place] [address] | | | LABORATORY | | | | + + + + + documented in this encounter Visit Diagnoses Not on filedocumented in this encounter"
--- OUTSIDE RECORDS SUMMARY | ~2018-11-09 | XMS | Encounter Summary ---
Demographics + + + | Address | [address] | | | [place] [address] | + + + | Home Phone [...] Team Providers + +------+ + | Care Practicing Urologist Name | Role | Phone | + +------+ + | Sulaiman Carrera MD | PCP | Unavailable | + +------+ + Reason for Referral [...] | | unspecified | [address] | [address] | | | | | Encounter | [place], [place] | [place] | | | | | for | [address] | [address] | | | | | long-term | | Phone: | | | | | (current) | | [phone] | | | | | use of other | | Fax: | | | | | medications | | [phone] | | | | | LBP (low [...] | Diagnoses | Paco, | Fili Pt Family Preservation Worker | | | | Therapy | Myalgia and | NIHARIKA Drake | [facility] [address] | | | | | myositis, | [address] | [address] | | | | | unspecified | [address] | Mailcode: | | | | | LBP (low | [place], [place] | [facility] | | | | | back pain) | [address] | for Health | | | | | Chronic | | and Healing | | | | | shoulder | | [place], [place] | | | | | pain Muscle | | [address] | | | | | strain | | Phone: | | | | | Radicular | | [phone] | | | | | pain in [...] | | Management | Chronic | Taqueria Strong, SAND WHEELER | Anali T, ANP | | | | | neck pain | [address] | [address] | | | | | Low back | [address] | [address] | | | | | pain | [place], [place] | [place], [place] | | | | | | [address] | [address] | | | | | | Phone: | | | | | | | [phone] | | | | | | | Fax: | | | | | | | [phone] | | +--------+--------+ + + + + Encounter Details +--------+---------+ + + + | Date | Type | Department | Care Team | Description | +--------+---------+ + + + | 04/05/ | Office | [facility] Comprehensive | Anali Tillman, | LBP (low back pain) | | 2012 | Visit | Pain Center at | ANP | (Primary Dx); | | | | [facility][Note 2] | | Fibromyalgia | | | | [address] | | syndrome 729.1; | | | | [facility] | | Encounter for | | | | Center for Health | | Long-Term (Current) | | | | and Healing, | | Use of Opioids; | | | | Floor [place], [place] | | Chronic Bilateral | | | | [address] | | Shoulder Pain; | | | | [phone] | | Muscle Strain hips; | | | | | | Radicular pain in | | [...] in this encounter Patient Instructions Patient Instructions Anali Tillman, ANP - 04/05/2013 9:40 AM PDT Recommendations: Belinda and I reviewed her history [...] to discuss these treatment options. Consult to [facility] physical therapy: A supervised physical therapy evaluation and treatment pr ogram is central to the management of leg [...] time if you have questions or concerns. ANALI TILLMAN, [facility] [address] Mail Code: [place] [address] documented in this encounter Progress Notes Anali Tillman ANP - 04/05/2013 9:28 AM PDTFormatting of this note might be different fro m the original. [facility] Office Visit 04/05/2013 Belinda Meehan; ; : 1960 Ms. Meehan was referred for pain management consultation by Taqueria Raman NP [address] [place] [address] Chief Complaint Patient presents with New patient [...] steroid injections by Dr. Lit Cintron in [place] at the [facility] and had good relief from [...] included: Epidural steroid injections she received in [place] and helped for a short time INSIDE SALES ADVISOR Brief Pain Inventory: (ten= worst possible pain [...] right knee Lumbar fusion 05/2008 & 2011 L5-K0tvesob with bone spur removals Appendectomy Cholecystectomy section [...] Hives Mainly in the legs Clindamycin Codeine Xhqvpux-Rwbvstbdtp-Ywr-Caff Balance problems Fioricet W/Codeine (Ghlxjzgxrj-Querwtnpke-Wwu-Cod) Keflex (Cephalexin) Morphine IM ( only in [facility]) made gut pain worse [...] levels. As part of today's visit the [facility] new patient questionnaire was [...] you expect from your visits to the [facility] ? Don't know BP [...] Overview Note: Surgery 05/15/08 Dr Ricky Garnett [facility] karlos to get operative reports Osteopenia 08/24/2007 [...] before her lumbar surgeries and recently in [place]. She has short-term relief from the se treatments. I would like her to return to see Dr. Murali Montero to discuss these treatment options. Consult to [facility] physical therapy: A supervised physical therapy evaluation [...] of which more than 50% was spent rarft-bh-ezua in revie wing pain questionnaire, medical record, consultation, discussion, addressing questions and counselling/education. [facility] [address] Mail [place]: [place] [address] aris Riley MA - 04/05/2013 8:25 AM PDT Review [...] | + + | Other, Faculty - 04/25/2013 10:20 AM PST | + [...]
--- OUTSIDE RECORDS SUMMARY | ~2018-11-09 | XMS | Encounter Summary ---
Demographics + + + | Address | [address] | | | [place] [address] | + + + | Home Phone [...] Team Providers + +------+ + | Care Grant Administrator Name | Role | Phone | [...] 2011 | | [facility] | [address] | (levothyroxine) | | | | [facility] | [place], [place] | | | | | [place] [address] | [address] | | | | | [address] | [phone] | | | | | Road Physicians | | | | | | [facility] | | | | | | [facility] [place], | | | | | | [place] [address] | | | | | | [phone] | | | +--------+--------+ + + + [...]
--- OUTSIDE RECORDS SUMMARY | ~2018-11-09 | XMS | Encounter Summary ---
Demographics + + + | Address | [address] | | | [place] [address] | + + + | Home Phone [...] + +------+ + | Care Clinical Specialist Name | Role | Phone | + +------+ + | Pedrito Gutierrez MD | PCP | | + +------+ + Encounter Details +--------+---------+ + + + | Date | Type | Department | Care Team | Description | +--------+---------+ + + + | 07/25/ | Office | Kraig Turner | Beto Meeks MD | Osteopenia (Primary | | 2008 | Visit | [facility] | [address] | Dx); S/P Gastric | | | | [facility] | [place], [place] | Bypass Surgery November | | | | [facility] [address] | [address] | 2003; | | | | [address] | [phone] | Hypothyroidism; | | | | [facility] | | Essential | | | | [facility] | | hypertension 401.9; | | | | [facility] [place], | | Iron Deficiency | | | | [place] [address] | | | | | | [phone] | | | +--------+---------+ + + + [...] + + + | Blood Pressure | 109/75 | 07/25/2008 1:04 PM | | | | | PST | | + + + + + | Pulse | 78 | 07/25/2008 1:04 PM | | | | | PST [...] | 88.7 kg (195 lb 8 | 07/25/2008 1:04 PM | | | | oz) | PST | | + + + + + | Height | 176 cm (5' 9.3") | 07/25/2008 1:04 PM | | | | | PST | | + + + + + | Body Mass Index | 28.62 | 07/25/2008 1:04 PM | | | | | PST | | + + + + + documented in this encounter Progress Notes Beto Meeks MD - 07/25/2008 1:54 PM PSTFormatting of this note might be different from lesli gomez. Subjective Belinda Meehan is a 48 y.o. female who is here for a followup visit regarding problems be low. She has been taking amitriptyline for migraines - seems to help. She had her BMD chec ked yesterday. Takes 2400 mg of calcium daily with vit D 1600 IU/d. Her last vit D here wa s 47 ng/ml. Patient Active Problem List Diagnoses Code Metabolic syndrome X 250.80 250.80 Essential hypertension 401.9 401.9 Asthma 493.9 493.9 Fibromyalgia syndrome 729.1 729.1 Impaired glucose tolerance 790.2 790.2 Iron Deficiency 275.0C Major Depressive Disorder, Recurrent Episode, Moderate 296.32 Adjustment Disorder with Anxiety 309.24 Hypothyroidism 244.9AQ Encounter for Long-Term (Current) Use of Opioids V58.69 LBP (Low Back Pain) 724.2AF Osteopenia 733.90X Spinal Fusion Lumbar spine V45.4J Chronic Bilateral Shoulder Pain 719.41AB Coccydynia 724.79C Allergies Allergen Reactions Keflex (Cephalexin) Sulfa (Sulfonamides) Codeine Penicillins Clindamycin Cipro (Ciprofloxacin) Tramadol Morphine IM ( only in [facility]) made gut pain worse 08/27/06: Trial of [...] 300 mg) by oral route once daily nrplqurlbw-sshuwigzmfgfi-qddjqaxq (FIORICET) 50-325-40 mg Oral Tablet take 2 [...] CHEWABLE TAB four times a day Physical Exam Blood pressure 109/75, pulse 78, height 1.76 m (5' 9.3"), weight 88.678 kg (195 lb 8 oz). Body mass index is 28.62 kg/(m^2). Alert, NAD, mood WNL Skin unremarkable Cardiac-RRR, no murmur/S3/S4/rubs. No JVD. Pulses 2+. No bruits Abdomen: No hepatosplenomegaly, masses, or tenderness Extremities: no pretibial edema. Labs Component Reference Range 02/29/2008 GLUCOSE (LAB) 60-99 [...] uIU/ml 1.30 FREE T4 0.6-1.6 ng/dL 0.7 Assessment Belinda Meehan is a 48 y.o. female who has medical problems noted above. Hyopothyroidism: Normal labs in Feb. Osteopenia of Hip: Fairly stable 06/21, 08/20, and 07/24/08. She dropped about 30% after darrian atric surgery in November 2003 as a consequence of major weight loss, but has been stable since. Takes adequate calcium, vit D, and Actonel. Last vit D done here was 47 ng/ml 1 year ago. Need to recheck vit D and PTH. T-score was -0.9 in spine, -0.3 in radius, -2.0 in hip Hypotension: This has improved, but is not completely gone. Decreasing her dose of amitri ptyline seems to have helped. Spine surgery in May: Had some type of fusion done; several screws are in place. Numb ness of LE has improved. Doing okay - wears a brace. She is hoping to resume swimming next week. Plan Check 25-OH vit D level, irone/TIBC, PTH May do a 24 urine calcium measurement Increase calcium intake prn RTC 3-4 months documented in this encounter Plan of Treatment Not on filedocumented as of this encounter Visit Diagnoses + + | Diagnosis | + + | Osteopenia - Primary Disorder of bone and cartilage, unspecified | + + | S/P Gastric Bypass Surgery November 22, 2003 Bariatric surgery status | + + | Hypothyroidism Unspecified hypothyroidism | + + | Essential hypertension 401.9 Unspecified essential hypertension | + + | Iron deficiency Other disorders of iron metabolism | + + documented in this encounter
--- OUTSIDE RECORDS SUMMARY | ~2018-11-09 | XMS | Encounter Summary ---
Demographics + + + | Address | [address] | | | [place] [address] | + + + | Home Phone [...] Providers + +------+ + | Care Evp Head Of [employer] Experience Strategy Name | Role | Phone | + [...] 07/30/ | Office | [facility] at [facility] | Lukasz Charles, | Major Depressive | | 2006 | Visit | 15th Floor [address] | PhD [address] | Disorder, Recurrent | | | | [address] | Ave [place], [place] | Episode, Moderate; | | | | Code: [facility] | [address] | Chronic Abdominal | | | | for Health and | [phone] | Pain; Herniated | | | | Healing, 15th Floor | | Lumbar | | | | [place], [place] | | Intervertebral Disc | | | | [address] | | L4-5; 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 Ms. Meehan has depression and frustration. She is having some difficulty increasing her a ctivity level but she is putting forth effort. She appears to have good insight. Diagnosis: [place] I: 1. (296.32) Major depressive disorder, recurrent, moderate. 2. (309.24) Adjustment disorder with anxiety. 3. 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 [place] II: Deferred [place] III: abdominal pain, migraine headache, low back pain. [place] IV: low finances [place] V: GAF 50 Plan: Return in 2 weeks. Check pacing, relaxation, activity. Check trip to [place]. Check mood. Continue cognitive/behavioral therapy. Total time spent with patient was approximately 45 minutes. LUKASZ CHARLES PHD [facility] [address] [facility] [place] [address] documented in this encount er Plan of Treatment + + +--------+ + + | Name | Type | Priori | Associated Diagnoses | Order Schedule | | | | ty | | | + + +--------+ + + | [facility], | Procedures | Routin | Major Depressive | Ordered: 07/31/2006 | | OFFICE (79-21) | | e | Disorder, Recurrent | [...]
--- OUTSIDE RECORDS SUMMARY | ~2018-11-09 | XMS | Encounter Summary ---
Demographics + + + | Address | [address] | | | [place] [address] | + + + | Home Phone [...] Team Providers + +------+ + | Care Blocker Polishing Name | Role | Phone | + +------+ + PCP | Unavailable | + +------+ + Encounter Details +--------+ + + + + | Date | Type | Department | Care Team | Description | +--------+ + + + + | 01/21/ | Abstract | General Surgery | Unknown . | | | 2004 | | Bariatric [address] | | | | | | [address] | | | | | | Road Mailcode: | | | | | | [id number] [facility] | | | | | | [address] | | | | | | [place], [place] | | | | | | [address] | | | | | | [phone] | | | +--------+ + + + [...]
--- OUTSIDE RECORDS SUMMARY | ~2018-11-09 | XMS | Encounter Summary ---
Demographics + + + | Address | [address] | | | [place] [address] | + + + | Home Phone [...] Providers + +------+ + | Care Nuclear Plant Equipment Operator Name | Role | Phone [...] | Osteopenia | MD Beto | Density [facility] | | | | | Procedures | [address] | [address] | | | | | CONSULT TO | Ave | [address] | | | | | BONE | [place], [place] | Road | | | | | DENSITOMETRY | [address] | Mailcode: | | | | | | Phone: | [address]ER[address] | | | | | | [phone] | [address] | | | | | | Fax: | [place], [place] | | | | | | [phone] | [address] | | | | | | | Phone: | | | | | | | [phone] | | | | | | | Fax: | | | | | | | [phone] | +--------+--------+ + + + + Reason [...] | 2007 | | [facility] | [address] | | | | | [facility] | [place], [place] | | | | | [address] | [address] | | | | | [address] | [phone] | | | | | [facility] | | | | | | [facility] | | | | | | [address] [place], | | | | | | [place] [address] | | | | | | [phone] | | | +--------+ + + + [...]
--- OUTSIDE RECORDS SUMMARY | ~2018-11-09 | XMS | Encounter Summary ---
Demographics + + + | Address | [address] | | | [place] [address] | + + + | Home Phone [...] Author + + + | Author | [facility] | + + + | Organization | [facility] | + + + | Address [...] Team Providers + +------+ + | Care Custodial Officer Name | Role | Phone | [...] | | | Metabolism | bypass | [address] | [address] | | | | | Hypovitamino | [address], | Ave | | | | | sis D [address] | [address] | [place], [place] | | | | | nutritional | [place], [place] | [address] | | | | | deficiency | [address] | Phone: | | | | | Other | Phone: | [phone] | | | | | protein-jose manuel | [phone] | Fax: | | | | | nick | Fax: | [phone] | | | | | malnutrition | [phone] | | | | | | Weight | | | | | | | gain | | | | | | | Procedures | | | | | | | CONSULT TO | | | | | | | ENDO | | | | | | | [address] | | | | | | | [address] | | | +--------+--------+ + + + [...] | | | [facility] | [place], [place] | Dx); Hypothyroidism; | | | | [facility] [address] | [address] | Essential | | | | [facility] | [phone] | hypertension 401.9; | | | | [facility] | | Fibromyalgia | | | | [facility] | | syndrome 729.1 | | | | [facility]ilion [place], | | | | | | [place] [address] | | | | | | [phone] | | | +--------+---------+ + + + [...] Hives Mainly in the legs Clindamycin Codeine Vhvpjvl-Qpwgijaiiv-Tju-Caff Balance problems Fioricet W/Codeine (Uwhwvbcjtu-Sgzlhpyetv-Ygr-Cod) Keflex (Cephalexin) Morphine IM ( only in [facility]) made gut pain worse 08/27/06: [...] U/L 41 ANION GAP 8 VITAMIN B12, [id number] pg/ml >2000 (H) HEMOGLOBIN A1C <=5.6 % [...] SERUM 15.0-85.0 pg/ml 222.9 (H) VITAMIN B12, [id number] pg/ml > 2000 HEMOGLOBIN A1C <=5.6 % [...] PARQ. She wants to proceed with tr abdoulaye. 2. Increase calcium intake to 3 doses [...]
--- OUTSIDE RECORDS SUMMARY | ~2018-11-09 | XMS | Encounter Summary ---
Demographics + + + | Address | [address] | | | [place] [address] | + + + | Home Phone [...] Providers + +------+ + | Care Manager Pricing Name | Role | Phone | + [...] | | | Metabolism | bypass | [address] | [address] | | | | | Hypovitamino | [address], | Ave | | | | | sis D B12 | [address] | [place], [place] | | | | | nutritional | [place] | [address] | | | | | deficiency | [address] | Phone: | | | | | Other | Phone: | [phone] | | | | | protein-jose manuel | [phone] | Fax: | | | | | nick | Fax: | [phone] | | | | | malnutrition | [phone] | | | | | | Weight | | | | | | | gain | | | | | | | Procedures | | | | | | | CONSULT TO | | | | | | | ENDO | | | | | | | [address] | | | | | | | [address] | | | +--------+--------+ + + + [...] | | | [facility] | [place], [place] | Metabolic syndrome X | | | | [facility] [address] | [address] | 250.80; Essential | | | | [facility] | [phone] | hypertension 401.9; | | | | [facility] | | IGT (impaired | | | | [facility] | | glucose tolerance) | | | | Pavilion [place], | | | | | | [place] [address] | | | | | | [phone] | | | +--------+---------+ + + + [...] month in the pain center her at [facility], so she is hoping to find an [...] Hives Mainly in the legs Clindamycin Codeine Qbkoeda-Xwilabsrfc-Uwv-Caff Balance problems Fioricet W/Codeine (Ohomwrxqpb-Hiihwyihxx-Sis-Cod) Keflex (Cephalexin) Morphine IM ( only in [facility]) made gut pain worse 08/27/06: Trial [...] U/L 41 ANION GAP 8 VITAMIN B12, [id number] pg/ml >2000 (H) HEMOGLOBIN A1C <=5.6 % [...] SERUM 15.0-85.0 pg/ml 222.9 (H) VITAMIN B12, [id number] pg/ml > 2000 HEMOGLOBIN A1C <=5.6 % [...]
--- OUTSIDE RECORDS SUMMARY | ~2018-11-09 | XMS | Encounter Summary ---
Demographics + + + | Address | [address] | | | [place] [address] | + + + | Home Phone [...] Team Providers + +------+ + | Care Banquet Food Server Name | Role | Phone | + +------+ + PCP | Unavailable | + +------+ + Encounter Details +--------+ + + + + | Date | Type | Department | Care Team | Description | +--------+ + + + + | 08/09/ | Results | | Other, Faculty | | | 2002 | Only | | [phone] | | +--------+ + + + + [...] + | Ordered by [facility] | [facility] | | | DEPARTMENT OF | | | PATHOLOGY | + + + + + + + + | Performing | Address | City/State/Zipcode | Phone Number | | Organization | | | | + + + + + | [facility] DEPARTMENT OF | [address] | [place] [address] | | | PATHOLOGY | [address] | | | + + + + + | [place] DEPARTMENT OF | [address] | [place] [address] | | | PATHOLOGY | [address] | | | + + + + + documented in this encounter Visit Diagnoses Not on filedocumented in this encounter"
--- OUTSIDE RECORDS SUMMARY | ~2018-11-09 | XMS | Encounter Summary ---
Demographics + + + | Address | [address] | | | [place] [address] | + + + | Home Phone [...] Team Providers + +------+ + | Care Siding Mechanic Name | Role | Phone | + +------+ + | Sulaiman Carrera MD | PCP | Unavailable | + +------+ + Encounter Details +--------+ + + + + | Date | Type | Department | Care Team | Description | +--------+ + + + + | 12/21/ | Inside | Laboratory, | Beto Meeks MD | | | 2012 | Referral | Specimen Collection | [address] | | | | Order | at [facility] 3rd Floor | [facility] [place] | | | | | [address] | [address] | | | | | [facility] | [phone] | | | | | [place], [place] | | | | | | [address] | | | | | | [phone] | | | +--------+ + + + [...]
--- OUTSIDE RECORDS SUMMARY | ~2018-11-09 | XMS | Encounter Summary ---
Demographics + + + | Address | [address] | | | [place] [address] | + + + | Home Phone [...] Providers + +------+ + | Care Manager Integration Name | Role | Phone | + [...]
--- OUTSIDE RECORDS SUMMARY | ~2018-11-09 | XMS | Encounter Summary ---
Demographics + + + | Address | [address] | | | [place] [address] | + + + | Home Phone [...] Author | [facility] | + + + | Organization | [facility] | + + + | Address | [...] Providers + +------+ + | Care Military Source Operations Specialist Name | Role | Phone | + +------+ + | Pedrito Gutierrez MD | PCP | | + +------+ + Encounter Details +--------+---------+ + + + | Date | Type | Department | Care Team | Description | +--------+---------+ + + + | 02/01/ | Office | [facility] | Chris Padgett, | Status Post | | 2006 | Visit | Center [address] | [address] | Bariatric Surgery; | | | | [address] Mailcode: | [address] | Follow-Up | | | | [facility] Center for | [place], [place] | Examination | | | | Health and Healing, | [address] | Following Surgery | | | | 6th floor [place], | [phone] | | | | | [place] [address] | | | | | | [phone] | | | +--------+---------+ + + + [...] history of intermittent abdominal pain comes to [facility] for 3 mo f/u evaluation with [...] m/r/g Chest: CTA bilaterally Last edited by: GRCAE LEAL (ThuFeb 01, 2007 Grace Ortiz Md [...]
--- OUTSIDE RECORDS SUMMARY | ~2018-11-09 | XMS | Encounter Summary ---
Demographics + + + | Address | [address] | | | [place] [address] | + + + | Home Phone [...] Team Providers + +------+ + | Care Tattoo Designer Name | Role | Phone | [...] | | | | behavior of | [facility] | Orthopaedics | | | | | bone and | & Fractur | [address] | | | | | articular | [address] | [address] | | | | | cartilage | [address] | Rd | | | | | Procedures | [place], | [place], [place] | | | | | REQUEST TO | [place] [address] | [address] | | | | | SURGERY | Phone: | | | | | | PRODUCE ASSOCIATE | [phone] | | | | | | RI BONE | Fax: | | | | | | BIOPSY,OPEN | [phone] | | | | | | DEEP [...] | | | | | | | [facility] | Orthopaedics | | | | | | & Fractur | [address] | | | | | | [address] | [address] | | | | | | [address] | [place] | | | | | | [place], | [place], [place] | | | | | | [place] [address] | [address] | | | | | | Phone: | | | | | | | [phone] | | | | | | | Fax: | | | | | | | [phone] | | +--------+--------+ + + + + Encounter Details +--------+---------+ + + + | Date | Type | Department | Care Team | Description | +--------+---------+ + + + | 01/01/ | Office | Orthopaedics at | José Miguel Moreno, | 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 | Visit | [facility] [address] | | Uncertain Behavior | | | | [facility] [address] | | of Bone and | | | | Mailcode: 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 | | | | [facility] | | (Primary Dx) | | | | [place], [place] | | | | | | [address] | | | | | | [phone] | | | +--------+---------+ + + + [...] 08/2007 right knee Hx lumbar fusion 05/2008 L5-G2jbchjw with bone spur removals Hx appendectomy Hx cholecystectomy Hx section Hx hysterectomy Gastric bypass Mayra Padgett wt 278 01/18 Paniculectomy Allergies: Allergies Allergen Reactions Keflex (Cephalexin) Sulfa (Sulfonamides) Codeine Penicillins Clindamycin Cipro (Ciprofloxacin) Tramadol Morphine IM ( only in [facility]) made gut pain worse 08/27/06: Trial of oral MSIR caused leg swelling Clarithromycin Hives Mainly in the legs Pmqntkj-vgeaxvfjms-psw-caff Balance problems Amitriptyline Grand mal seizures Medications: [...] signs are noted as recorded by the Printed Products Assembler. General: Alert, awake, and oriented x3. No [...] | | | | | | | [id number] Name | | | | | | : BELINDA MEEHAN | | | | | | Birthday: | | | | | | 1960 Sex: | | | | | | F Alias:Patient | | | | | | Location: [id number]: | | | | | | Outpatient | | | | | | ActiveOrdering | | | | | | Physician: JOSÉ MIGUEL | | | | | | MARYSOL MORENO SCAPULA | | | | | | COMPLETE completed on | | | | | | 01/01/2009 11:55 | | | | | | AMAccession # | | | | | | [id number]:LEFT | | | | | | SCAPULA [...]
--- OUTSIDE RECORDS SUMMARY | ~2018-11-09 | XMS | Encounter Summary ---
Demographics + + + | Address | [address] | | | [place] [address] | + + + | Home Phone [...] Team Providers + +------+ + | Care Assisted Living Manager Name | Role | Phone | + +------+ + | Pedrito Gutierrez MD | PCP | | + +------+ + Encounter Details +--------+---------+ + + + | Date | Type | Department | Care Team | Description | +--------+---------+ + + + | 11/24/ | Office | Preoperative | [address] | Other Specified | | 2007 | Visit | Medicine Clinic at | [facility] [address] | Pre-Operative | | | | [facility] 4th Floor [address] | [place] [address] | Examination; | | | | [address] Mail | | Hemorrhagic Disorder | | | | Code: [facility] Center | | due to Intrinsic | | | | for Health and | | Circulating | | | | Healing,4th Floor | | Anticoagulants | | | | [facility] [place] | | | | | | [address] | | | | | | [phone] | | | +--------+---------+ + + + [...] for | | | | | | most patients with mech. | | | | | | | | | | | | valves [...] + + + + + | [facility] DEPARTMENT OF | [address] | [place] [address] | | | PATHOLOGY | [address] | | | + + + + + | [place] DEPARTMENT OF | [address] [facility] | [place] [address] | | | PATHOLOGY | [address] [...] | [facility] | | | | APTT | seconds | DEPARTMENT | | | | Therapeutic | | OF | | | | Range | | PATHOLOGY | | | | | | | | | | (75-120) | | | | | | sec | | [...] + + + + + | [facility] DEPARTMENT | [address] | [place] [address] | | | PATHOLOGY | [address] | | | + + + + + | [facility] DEPARTMENT OF | [address] | [place] [address] | | | PATHOLOGY | [address] [...] DEPARTMENT OF | [address] | [place] [address] | | | PATHOLOGY | [address] | | | + + + + + | [facility] DEPARTMENT OF | [address] | [place] [address] | | | PATHOLOGY | [address] [...] Performed At | + + + | [id number] Estimated GFR > 60 mL/min/1.73 sq m if non- | [facility] | | [place] [id number] Estimated GFR > 60 mL/min/1.73 sq m if | DEPARTMENT OF | | [place] GFR is estimated using the MDRD equation [...] Vegetarian diet - Rapidly changing kidney function | | + + + + + + + + | Performing | Address | City/State/Zipcode | Phone Number | | Organization | | | | + + + + + | [facility] | [address] | [place] [address] | | | PATHOLOGY | [address] | | | + + + + + | [facility] | [facility] [address] | [place] [address] | | | PATHOLOGY | [address] [...] + + | Ordered by an | [facility] DEPT OF | | unspecified provider. Please click on view image for the detailed | CARDIOLOGY | | interpretation from [employer] results. | | |results. | | | | | + + + + + + + + | Performing | Address | City/State/Zipcode | Phone Number | | Organization | | | | + + + + + | [facility] DEPT OF | [address] | [place], [place] | | | CARDIOLOGY | [address] | [address] | | + + + + + | [facility] DEPT OF | [address] | [place], [place] | | | CARDIOLOGY | [address] | [address] | | + + + + + documented in this encounter Visit Diagnoses + + | Diagnosis | + + | Other specified pre-operative examination | + + | Hemorrhagic disorder due to intrinsic circulating anticoagulants | + + documented in this encounter
--- OUTSIDE RECORDS SUMMARY | ~2018-11-09 | XMS | Encounter Summary ---
Demographics + + + | Address | [address] | | | [place] [address] | + + + | Home Phone [...] Team Providers + +------+ + | Care Desk Sergeant Name | Role | Phone | + [...] | Transcriptions | + + | Interface, Medical Office Coordinator In - 06/05/2005 5:20 AM PST Date: | | 11/22/2003Attending Surgeon: Chris Padgett M.D.Acid Wash Operator(s): | | Ramon Valentine M.D.Preoperative Diagnosis:Morbid obesity.Postoperative [...] our proximal transected portion down and did islte-yq-facs stapled jejunojejunostomy | | using a single [...] to this antecolic and antegastric andperformed a imrb-uo-fvru gastrojejunostomy | | after placing a posteriorinterrupted [...] Valentine | | Syed Padgett M.D.MOOKIE / [id number] / [id number] / [id number] / [id number]: 11/22/2003T: | | 11/22/2003 | |cm to [...] transected portion down and did a | |ortf-ak-stna stapled jejunojejunostomy using a single firing blue [...] antecolic and antegastric and | |performed a jbmu-ew-dxkc gastrojejunostomy after placing a posterior | |interrupted [...] | | | |MOOKIE / SHARIF | |[id number] / [id number] / [id number] / [id number] | | | | | + + documented in this encounter Visit Diagnoses Not on filedocumented in this encounter"
--- OUTSIDE RECORDS SUMMARY | ~2018-11-09 | XMS | Encounter Summary ---
Demographics + + + | Address | [address] | | | [place] [address] | + + + | Home Phone [...] Providers + +------+ + | Care Inside Tester Name | Role | Phone | [...] Muscular | | 2006 | Visit | [facility] [address] Maier MD,PhD [address] | Deconditioning; | | | | Avjennifer Mailcode: CH12A | [address] | Physical | | | | [facility] | [place], [place] | Deconditioning | | | | and | [address] | | | | | Floor [place], [place] | [phone] | | | | | [address] | | | | | | [phone] | | | +--------+---------+ + + + [...] and neurology assessment. Angel Morales M.D., Ph.D. Carver And Checkerer Specials, Surgical Excelsior Machine Feeder Orthopedics & Cartilage Reconstruction Surgery Department of Orthopedics [email or web address] documented in this encou er Plan of Treatment Not on filedocumented as of this encounter Visit Diagnoses + + | Diagnosis | + + | Muscular deconditioning Muscular wasting and disuse atrophy, not elsewhere classified | + + | Physical deconditioning Muscular wasting and disuse atrophy, not elsewhere classified | + + documented in this encounter"
--- OUTSIDE RECORDS SUMMARY | ~2018-11-09 | XMS | Encounter Summary ---
Demographics + + + | Address | [address] | | | [place] [address] | + + + | Home Phone [...] Providers + +------+ + | Care Hand Stitcher Name | Role | Phone | + +------+ + PCP | Unavailable | + +------+ + Encounter Details +--------+ + + + + | Date | Type | Department | Care Team | Description | +--------+ + + + + | 07/24/ | Office | [facility] | Clinic, | Progress Note | | 2006 | Visit-Trans | ONCOLOGY | Hematology/Oncology | | | | cribed | | [...] as of this encounter Progress Notes Interface, Inspector Packer Glass Container In - 08/19/2005 2:05 AM PST [id number] [facility] Date: 07/24/2005 Clinic: Hematology [...] full and complete summary. Lukasz Sellers M.D. porcelain enamel repairer TGD / [id number] / [id number] / [id number] / [id number] cc: Pedrito Gutierrez M.D. .. [address] [address] Electronically signed by Lukasz Sellers 08-18-2005 01:28:24 PM documented i n this encounter Plan of Treatment Not on filedocumented as of this encounter Visit Diagnoses Not on filedocumented in this encounter"
--- OUTSIDE RECORDS SUMMARY | ~2018-11-09 | XMS | Encounter Summary ---
Demographics + + + | Address | [address] | | | [place] [address] | + + + | Home Phone [...] Team Providers + +------+ + | Care Work Ticket Distributor Name | Role | Phone | [...] | | | | | abdominal | [place] | [address] [facility] | | | | | pain | Health & | [facility] | | | | | Procedures | Science | Rd [place], | | | | | REQUEST TO | University | [place] | | | | | SURGERY | [address] [facility] | [address] | | | | | [employer] | [address] | Phone: | | | | | [place] | Rd | [phone] | | | | | EXPLORATORY | [place], [place] | Fax: | | | | | OF ABDOMEN | [address] | [phone] | | | | | [place] FREEING [...] | | | | | | Rd [place], | | | | | | | [place] | | | | | | | [address] | | | | | | | Phone: | | | | | | | [phone] | | | | | | | Fax: | | | | | | | [phone] | +--------+--------+ + + + + Encounter Details +--------+---------+ + + + | Date | Type | Department | Care Team | Description | +--------+---------+ + + + | 11/24/ | Office | Digestive Health | Chris Ruano, | Chronic Abdominal | | 2007 | Visit | Center [address] | MD [address] | Pain (Primary Dx) | | | | [address] Mailcode: | [address] | | | | | [facility] for | [place], [place] | | | | | Health and Healing, | [address] | | | | | 6th floor [place], | [phone] | | | | | [place] [address] | | | | | | [phone] | | | +--------+---------+ + + + [...] the resident s note. CHRIS RUANO MD [facility] [address] [facility], 6th [place] [phone] Chris Peralta - 10:55 AM PDTThe patient has had a long history of abdominal pain and now requests ex ploration for a possible internal hernia. Will schedule. I saw the patient with Dr. Saavedra on who performed a hx and phy. SeanNoemi willson Darrion - 11/25/2007 1:17 PM PDT 11/25/2007 1:10 [...] not work at this time. Lives in [place], [place] FH: Noncontributory ROS: No recent fevers, [...] | [facility] | | | | INR | | DEPARTMENT | | | | Therapeutic ranges for | | OF | | | | full | | PATHOLOGY | | | | anticoagulation: | | | | | | INR for Venous | | | | | | Thromboembolism | | | | | | | | | | | | (2.0-3.0) | | | | | | INR INR for | | | | | [...] | + + + + + | [facility] DEPARTMENT OF | [address] | [place] [address] | | | PATHOLOGY | [address] | | | + + + + + | [facility] | [address] [facility] | [place] [address] | | | PATHOLOGY | [address] [...] | | | | are normal. Lungs | | | | | | are clear. Osseous | | | | | | structures are | | | | | | intact. Cholecystecto | | | | | | my clips are | | | | | | [...]
--- OUTSIDE RECORDS SUMMARY | ~2018-11-09 | XMS | Encounter Summary ---
Demographics + + + | Address | [address] | | | [place] [address] | + + + | Home Phone [...] Team Providers + +------+ + | Care Wing Commander Name | Role | Phone | [...] | Registratio | [address] | [address] | | | | n | [facility] Mailcode: | [place], [place] | | | | | [address] [place], [place] | [address] | | | | | [address] | [phone] | | | | | [phone] | | | +--------+ + + + [...] DEPARTMENT OF | [address] | [place] [address] | | | PATHOLOGY | [address] | | | + + + + + | [place] DEPARTMENT | [address] | [place] [address] | | | PATHOLOGY | [address] [...] + + + + + | [facility] DEPARTMENT | [address] [place] [address] | [place] [address] | | | PATHOLOGY | [address] | | | + + + + + | [facility] DEPARTMENT OF | [address] [place] [address] | [place] [address] | | | PATHOLOGY | [address] [...] | | | performed by Colin | Nayeli/aida | | | | | [facility] | | | | | | Laboratories. | | | | + + + + + + + + | Specimen | + + | | + + + + + + + | Performing | Address | City/State/Zipcode | Phone Number | | Organization | | | | + + + + + | [facility] | [address] | [place] [address] | | | LABORATORY | | | | + + + + + documented in this encounter Visit Diagnoses Not on filedocumented in this encounter"
--- OUTSIDE RECORDS SUMMARY | ~2018-11-09 | XMS | Encounter Summary ---
Demographics + + + | Address | [address] | | | [place] [address] | + + + | Home Phone [...] Team Providers + +------+ + | Care Hydro Pneumatic Tester Name | Role | Phone | [...] | | 2004 | anned | [address] [facility] | | | | | | [facility] | | | | | | [place], [place] | | | | | | [address] | | | +--------+ + + + [...]
--- OUTSIDE RECORDS SUMMARY | ~2018-11-09 | XMS | Encounter Summary ---
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 [facility] Sports Medicine Clinic 09/23/2006 Belinda Meehan [...] a gastri c bypass and is much siebel consultant now. She is doing PT as this point. With some benefit. She is concerned because she now has some poppin mahesh dlocking symptoms and wants to know if there si something that windows software engineer be done w ith a scope to fix her knee. N oerytheant Past Medical History Diagnosis Date CHRONIC ABDOMINAL [...] (ciprofloxacin) Tramadol Morphine IM ( only in [facility]) made gut pain worse 08/27/06: [...] the MRI. Ramon Ibarra M.D. Sports Medicine [facility] Orthopaedics and Rehabilitation [facility] [place] [address] [phone] documented in this encoun ter Plan of [...] | | | | | | COMPARISON: Radiograp | | | | | | hs from 09/23/06. | | | | | | HISTORY: Knee pain, | | | | | | evaluate for medial | | | | | | meniscal tear. | | | | | | PROCEDURE:1. Coronal | | | | | | proton density fast spin | | | | | | echo.2. Coronal FSE | | | | | | mid TE with fat | | | | | | saturation..3. Sagitt | | | | | | al proton density fast | | | | | | spin echo.4. Sagittal | | | | | | FSE mid TE with fat | | | | | | saturation.5. Axial | | | | | | T1 FSE.6. Axial FSE | | | | | | mid TE with fat | | | | | | saturation.7. Sagitta | | | | | | l 3D/WATSf cartilage | | | | | [...] | | | | | | myxoid | | | | | | degeneration. The | | | | | | lateral meniscus | | | | | | isotherwise | | | | | | intact. Articular | | | | | | cartilage is preserved | | | | | | throughout thelateral | | | | | | compartment. Articular | | | | | | cartilage along the | | | | | | medial and lateral | | | | | | patellar | | | | | | facetsdemonstrates | | | | | | heterogeneous | | | | | | intrasubstance signal | | | | | | with diffusethinning and | | | | | | surface | | | | | | irregularity. There | | | | | | is mild marginalspurring | | | | | | of the patella as well. | | | | | | There is no joint | | | | | | effusion or bone marrow | | | | | | signal abnormality.There | | | | | | is no popliteal cyst. | | | | | | The anterior cruciate | | | | | [...] | | | | | | areintact.IMPRESSION: | | | | | | 1. Radial tear of the | | | [...] | | | | | lateral meniscus. | | | | | | 3. Articular | | | | | | cartilage thinning and | | | | | | surface irregularity | | | | | | [...] | | + +---------+ + + | [facility] DEPARTMENT OF | | | [...] | | | | | ANDSALT JAQUEZ | | | | | | VIEWS: 09/23/2006 | | | | | | Dictated 09/23/2006 | | | | | | COMPARISON: Compariso | | | | | | n knees of 06/2003 are | | | | | | not of | | | | | [...] | | | | | | no | | | | | | jointeffusion. There | | | | | | is slight lateral tilt | | | | | | and sclerosis of the | | | | [...] | | + +---------+ + + | [facility] DEPARTMENT OF | | | [...]
--- OUTSIDE RECORDS SUMMARY | ~2018-11-09 | XMS | Encounter Summary ---
Demographics + + + | Address | [address] | | | [place] [address] | + + + | Home Phone [...] + + | Author | [facility] | + + + | Organization | [facility] | + + + | Address | [...] Team Providers + +------+ + | Care Painter And Grader Cork Name | Role | Phone | + [...] | | | | Road Mailcode: | [place], [place] | | | | | [address] Physicians | [address] | | | | | [address] | [phone] | | | | | [place], [place] | | | | | | [address] | | | | | | [phone] | | | +--------+ + + + [...]
--- OUTSIDE RECORDS SUMMARY | ~2018-11-09 | XMS | Encounter Summary ---
Demographics + + + | Address | [address] | | | [place] [address] | + + + | Home Phone [...] Providers + +------+ + | Care Hot Metal Charger Name | Role | Phone | [...] | Neurology | Diagnoses | [place], | [place], | | | | | Migraine | NIHARIKA Jean | Merari Lopez MD | | | | | headache | [address] | | | | | | Procedures | [address] | | | | | | CONSULT TO | [place], [place] | | | | | | NEUROLOGY | [address] | | +--------+--------+ + + + + [...] (Primary Dx); | | | | [facility] | | Migraine Headache; | | | | [address] | | Opioid Dependence, | | | | Mail Code: CH15P | | Continuous (HCC); | | | | [facility] | | Neck Pain; Right | | | | and | | shoulder rotator | | | | Floor [place], [place] | | cuff strain; | | | | [address] | | Spondylosis with | | | | [phone] | | Myelopathy, Lumbar | | | [...] 10/23/2006 1:33 PM PDT1. Continue with current [facility] cations no changes 2. Continue with orthopedic surgical workup 3. Schedule Neurology evaluation [facility] order placed for Dr. Merari Mittal MD 4. Follow up 11/11/06 documented in this encounter Progress Notes Delfina Molina - 10/23/2006 1:20 PM PDTFormatting of this note might be different from th e original. 10/23/2006 Belinda Meehan is a 46 y.o. female [facility] Comprehensive Pain Center Return Visit Chief [...] car. She has not been seeing the [facility] PT , await ing the surgical plan for her left knee. MRI done, ordered by Dr. Ibarra who referred to Dr. Angel Morales for surgical opinion, scheduled for 10/28/06. She continues to see Dr. Alin adames at [facility] and reports benefit and would like to nelly becky she has two more scheduled visits. She [...] Collection Time Resulting Agency 10/05/2006 9:20 AM [facility] DEPARTMENT OF RADIOLOGY Component Results MR KNEE [...] the free margin and undersurface of the car wash supervisor horn of the medial meniscus suspicious for [...] the left knee 3. Schedule Neurology evaluation [facility] order placed for Dr. Merari Mittal MD 4. Follow up 11/11/06 to reivew pain management 5. Cntinue with PT and psychology as scheduled DELFINA MOLINA [facility] Mail code CH 4P [facility] and [place] [address] [facility] [address] iValencia macias - 10/23 12:47 PM [...]
--- OUTSIDE RECORDS SUMMARY | ~2018-11-09 | XMS | Encounter Summary ---
Demographics + + + | Address | [address] | | | [place] [address] | + + + | Home Phone [...] Providers + +------+ + | Care Service Center Representative Name | Role | Phone [...] Lorin, | | | | | | Monique Dept | MD Eliezer | | | | | | | [address] | | | | | | | [address] | | | | | | | [place], | | | | | | | [place] | | | | | | | [address] | | | | | | | Phone: | | | | | | | [phone] | | | | | | | Fax: | | | | | | | [phone] | +--------+--------+ + + + + Encounter Details +--------+---------+ + + + | Date | Type | Department | Care Team | Description | +--------+---------+ + + + | 07/10/ | Office | Digestive Health | Eliezer Ruano, | Abdominal Pain, | | 2008 | Visit | Center [address] | [address] | dumping syndrome Hx | | | | [address] Mailcode: | [address] | of gastric bypass | | | | [facility] for | [place], [place] | (Primary Dx) | | | | Health and Healing, | [address] | | | | | 6th floor [place], | [phone] | | | | | [place] [address] | | | | | | [phone] | | | +--------+---------+ + + + [...] and plan of care. ELIEZER RUANO MD [address] [place]dy Mailcode: [place] [address] Yuriy Mayo MD - 06/16 [...] surgery, L5-S1 fusion with spur removal in [place], [place] 7 weeks ago. Allergies Allergen Reactions Keflex (Cephalexin) Sulfa (Sulfonamides) Codeine Penicillins Clindamycin Cipro (Ciprofloxacin) Tramadol Morphine IM ( only in [facility]) made gut pain worse 08/27/06: Trial of oral MSIR caused leg swelling Clarithromycin Hives Mainly in the legs Current outpatient prescriptions prior to encounter Medication Sig Dispense Refill aspirin chewable (BABY ASPIRIN) 81 mg Oral Tablet, Chewable 2 daily buPROPion XL (WELLBUTRIN XL) 300 mg Oral Tablet Sustained Release 24 hr take 1 tablet ( 300 mg) by oral route once daily xgfsaxarmd-zgdnyrszubezv-zxykoxkz (FIORICET) 50-325-40 mg Oral Tablet take 2 [...] 278 01/18 Paniculectomy Hx lumbar fusion 05/2008 L1-J8wnkodg with bone spur removals Review of Systems: [...]
--- OUTSIDE RECORDS SUMMARY | ~2018-11-09 | XMS | Encounter Summary ---
Demographics + + + | Address | [address] | | | [place] [address] | + + + | Home Phone [...] Team Providers + +------+ + | Care Interior Decorator Paperhanging Name | Role | Phone | + +------+ + PCP | Unavailable | + +------+ + Encounter Details +--------+ + + + + | Date | Type | Department | Care Team | Description | +--------+ + + + + | 11/22/ | Results | | Other, Faculty | | | 2004 | Only | | [phone] | | +--------+ + + + + [...] + + | [place] DEPARTMENT OF | [address] | [place] [address] | | | PATHOLOGY | [address] | | | + + + + + | [facility] DEPARTMENT OF | [address] | [place] [address] | | | PATHOLOGY | [address] [...] | + + + + + | [facility] | [address] [facility] | [place] [address] | | | PATHOLOGY | [address] | | | + + + + + | [facility] | [address] [facility] | [place] [address] | | | PATHOLOGY | [address] [...] | + + + + + | [facility] | [address] [facility] | [place] [address] | | | PATHOLOGY | [address] | | | + + + + + | [facility] | [facility] | [place] [address] | | | PATHOLOGY | [address] [...] + | Ordered by SYEDA MCKENZIE | MISU | | | DEPARTMENT OF | | | PATHOLOGY | + + + + + + + + | Performing | Address | City/State/Zipcode | Phone Number | | Organization | | | | + + + + + | [facility] DEPARTMENT OF | [address] | [place] [address] | | | PATHOLOGY | [address] | | | + + + + + | [facility] DEPARTMENT OF | [address] | [place] [address] | | | PATHOLOGY | [address] [...] + | Ordered by SYEDA MCKENZIE | MISU | | | DEPARTMENT OF | | | PATHOLOGY | + + + + + + + + | Performing | Address | City/State/Zipcode | Phone Number | | Organization | | | | + + + + + | [facility] DEPARTMENT OF | [address] | [place] [address] | | | PATHOLOGY | [address] | | | + + + + + | [place] DEPARTMENT OF | [address] | [place] [address] | | | PATHOLOGY | [address] [...] | + + + + + | [facility] | [address] | [place] [address] | | | PATHOLOGY | [address] | | | + + + + + | [facility] | [address] | [place] [address] | | | PATHOLOGY | [address] | | | + + + + + documented in this encounter Visit Diagnoses Not on filedocumented in this encounter"
--- OUTSIDE RECORDS SUMMARY | ~2018-11-09 | XMS | Encounter Summary ---
Demographics + + + | Address | [address] | | | [place] [address] [...] Team Providers + +------+ + | Care Fixer Supervisor Name | Role | Phone | + +------+ + PCP | Unavailable | + +------+ + Encounter Details +--------+ + + + + | Date | Type | Department | Care Team | Description | +--------+ + + + + | 01/02/ | Telephone | Digestive Health | Kenisha Melton, | | | 2005 | | [place] [address] | [facility] [address] | | | | | [facility] | [facility] | | | | | Mailcode: TRS212 | [place], [place] | | | | | Physicians Sharmila | [address] | | | | | [place], [place] | [phone] | | | | | [address] | | | | | | [phone] | | | +--------+ + + + [...]
--- OUTSIDE RECORDS SUMMARY | ~2018-11-09 | XMS | Encounter Summary ---
Demographics + + + | Address | [address] | | | [place] [address] | + + + | Home Phone [...] Team Providers + +------+ + | Care Tufting Machine Fixer Name | Role | Phone | [...] as of this encounter Progress Notes Interface, Brake Lining Driller In - 03/29/2005 5:05 AM PDT [id number] [facility] Date: 03/20/2005 Clinic: Rheumatology [...] and sense of disability is 5/10. Her casey saw operator needs a note from me that she [...] for the diagnosis of fibromyalgia by the [employer]. She also has the [...] to treat restless legs. There is a expressive music therapist in [place] who is using large doses to reduce [...] 4 months. Caitlin Rivera M.S., F.N.P. / [id number] / [id number] / [id number] / [id number] cc: Pedrito Gutierrez M.D. [address] [place] [address] Belinda Meehan [address] [facility] [place] [address] Electronically signed by Caitlin Rivera 03-28-2005 01:43:14 PM documented i n this encounter Plan of Treatment Not on filedocumented as of this encounter Visit Diagnoses Not on filedocumented in this encounter"
--- OUTSIDE RECORDS SUMMARY | ~2018-11-09 | XMS | Encounter Summary ---
Demographics + + + | Address | [address] | | | [place] [address] | + + + | Home Phone [...] Providers + +------+ + | Care Climatology Teacher Name | Role | Phone | [...] + + | 06/28/ | Office | [facility] Comprehensive | Delfina Molina, | LBP (Low Back Pain); | | 2007 | Visit | Pain Center at | ANP | Encounter for | | | | [facility] | | Long-Term (Current) | | | | [address] | | Use of Opioids; | | | | Mail Code: CH15P | | Arthroplasty of the | | | | [facility] | | Left Knee; Bilateral | | | | and | | Knee Pain; [address] | | | | Floor [place], [place] | | (Degenerative Joint | | | | [address] | | Disease) of Knee; | | | | [phone] | | Spondylosis with | | | [...] as working with Madeleine evans or in [facility]. Epidural steroid injections are awhile call to schedule with Dr. Kylha SHEEHAN. documented in this encounter Progress Notes Delfina Molina - 06/28/2007 8:56 AM PSTFormatting of this note might be different from th e original. 06/28/2007 Belinda Meehan is a 47 [address] [facility] Comprehensive Pain Center Return Visit [...] be in bed so long. 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 Current outpatient medications Medication Sig Dispense Refill [...] Collection Time Resulting Agency 05/25/2007 4:[address] [facility] DEPARTMENT OF RADIOLOGY Component Results [...] CENTER PAIN CENTER Mail code CH 4P [facility] and [facility] [address] [facility] [address] Ailyn Bello 06/28/19 08 8:38 [...]
--- OUTSIDE RECORDS SUMMARY | ~2018-11-09 | XMS | Encounter Summary ---
Demographics + + + | Address | [address] | | | [place] [address] | + + + | Home Phone [...] Providers + +------+ + | Care Outsole Paraffiner Name | Role | Phone | + [...] | | | | Clinical Nutrition | [place], [place] | | | | | [address] | [address] | | | | | [facility] | [phone] | | | | | Mailcode: OPC5 | | | | | | Outpatient Clinic | | | | | | [facility] | | | | | | [place] [address] | | | | | | [phone] | | | +--------+ + + + [...] | | | | | performed by [facility] | | | | | | Laboratories. | | | | + + + + + + + + | Specimen | + + | | + + + + + + + | Performing | Address | City/State/Zipcode | Phone Number | | Organization | | | | + + + + + | [facility] | [address] | [place], [place] | | | [facility] | | [address] | | + + + + + HEMOGLOBIN A1C (05/31/2002 3:21 PM PST) + + + + + + | Component | Value | Ref Range | Performed | Pathologist | | | | | At | Signature | + + + + + + | HEMOGLOBIN | 6.0Comment: Test | <7.1 % | | | | A1C | performed by [facility] | | | | | | [facility] | | | | | [...] + | [facility] | [address] | [place] [address] | | | LABORATORY | | | [...] | [facility] DEPARTMENT OF | [address] [facility] [address] | [place] [address] | | | PATHOLOGY | [address] | | | + + + + + | [facility] DEPARTMENT OF | [address] [facility] [address] | [place] [address] | | | PATHOLOGY | [address] [...] [facility] | [address] | [place] [address] | | | PATHOLOGY | [address] | | | + + + + + | [facility] | [address] | [place] [address] | | | PATHOLOGY | [address] | | | + + + + + documented in this encounter Visit Diagnoses Not on filedocumented in this encounter"
--- OUTSIDE RECORDS SUMMARY | ~2018-11-09 | XMS | Encounter Summary ---
Demographics + + + | Address | [address] | | | [place] [address] | + + + | Home Phone [...] Team Providers + +------+ + | Care Millwright Name | Role | Phone | + [...]
--- OUTSIDE RECORDS SUMMARY | ~2018-11-09 | XMS | Encounter Summary ---
Demographics + + + | Address | [address] | | | [place] [address] | + + + | Home Phone [...] Team Providers + +------+ + | Care Maid Cleaning Cooking Name | Role | Phone | + +------+ + | Sulaiman Carrera MD | PCP | Unavailable | + +------+ + Encounter Details +--------+ + + + + | Date | Type | Department | Care Team | Description | +--------+ + + + + | 07/24/ | Ancillary | Registration 3181 | [place], | | | 2005 | Registratio | Sara [address]ley | MD Lukas[address] | | | | n | [facility] Mailcode: | Mychal Kovacs [place], | | | | | [address] [place], [place] | [place] [address] | | | | | [address] | [phone] | | | | | [phone] | | | +--------+ + + + [...] | | | | | performed at [place] | | | | | | [facility] | | | | | | Laboratory | | | | + + + + + + + + | Specimen | + + | | + + + + + + + | Performing | Address | City/State/Zipcode | Phone Number | | Organization | | | | + + + + + | [facility] | [address] | [place] [address] | | | LABORATORY | | | [...] | + + + + + | [facility] | [address] [facility] | [place] [address] | | | PATHOLOGY | [address] | | | + + + + + | [facility] | [address] [facility] | [place] [address] | | | PATHOLOGY | [address] [...] | + + + + + | [facility] DEPARTMENT OF | [address] [facility] | [place] [address] | | | PATHOLOGY | [address] | | | + + + + + | [facility] DEPARTMENT OF | [address] [facility] | [place] [address] | | | PATHOLOGY | [address] [...] | [place] DEPARTMENT OF | [address] | [place] [address] | | | PATHOLOGY | [address] | | | + + + + + | [place] DEPARTMENT OF | [address] [facility] | [place] [address] | | | PATHOLOGY | [address] [...] | + + + + + | [facility] DEPARTMENT OF | [facility] | [place] [address] | | | PATHOLOGY | [address] | | | + + + + + | [place] DEPARTMENT OF | [address] | [place] [address] | | | PATHOLOGY | [address] [...] | | | | | | | (75-120)sec | | | | | | Hepa | | | | | | rin levels of 0.35-0.7 | | | | | | U/mL | | | | + + + + + + + + | Specimen | + + | | + + + + + + + | Performing | Address | City/State/Zipcode | Phone Number | | Organization | | | | + + + + + | [facility] | [address] | [place] [address] | | | PATHOLOGY | [address] | | | + + + + + | [facility] | [address] | [place] [address] | | | PATHOLOGY | [address] | | | + + + + + documented in this encounter Visit Diagnoses Not on filedocumented in this encounter"
--- OUTSIDE RECORDS SUMMARY | ~2018-11-09 | XMS | Encounter Summary ---
Demographics + + + | Address | [address] | | | [place] [address] | + + + | Home Phone [...] Providers + +------+ + | Care Elementary School Music Teacher Name | Role | Phone | [...] as of this encounter Progress Notes Interface, President Financial Institution In - 11/05/2005 2:06 AM PDT [id number] GEOVANNI Barnes [id number] Clinic Date: 10/20/2005 Clinic: Bariatric Surgery Clinic Subjective: Ms. Meehan returns today for continued evaluation of her abdominal pain. She has had a gastric bypass followed by a panniculectomy approximately 1 year ago. She has had diffuse sharp and crampy abdominal pain which lasts up to 45 minutes. She says "it takes her breath away." She went to the emergency room at [place] last night and got some IV pain [...] . Wali Valentine M.D. CONNOR / SHARIF [id number] / [id number] / [id number] / [id number] Electronically signed by Luther Valentine 11-04-2005 11:36:40 AM documented i n this encounter Plan of Treatment Not on filedocumented as of this encounter Visit Diagnoses Not on filedocumented in this encounter
--- OUTSIDE RECORDS SUMMARY | ~2018-11-09 | XMS | Encounter Summary ---
Demographics + + + | Address | [address] | | | [place] [address] | + + + | Home Phone [...] Team Providers + +------+ + | Care Hazardous Waste Remover Name | Role | Phone | + +------+ + PCP | Unavailable | + +------+ + Encounter Details +--------+ + + + + | Date | Type | Department | Care Team | Description | +--------+ + + + + | 02/26/ | Results | Kraig Turner | Beto Meeks MD | | | 2003 | Only | [facility] | [address] | | | | | [facility] | [place], [place] | | | | | [address] [facility] [address] | [address] | | | | | [address] | [phone] | | | | | Road Mailcode: | | | | | | [id number] Physicians | | | | | | [place], | | | | | | [place] [address] | | | | | | [phone] | | | +--------+ + + + [...] | | | | | performed at [place] | | | | | | [facility] | | | | | | Laboratory | | | | + + + + + + + + | Specimen | + + | | + + + + + + + | Performing | Address | City/State/Zipcode | Phone Number | | Organization | | | | + + + + + | [facility] | [address] | [place] [address] | | | LABORATORY | | | [...] + + + + + | [facility] | [address] | [place] [address] | | | LABORATORY | | | [...] | | | performed by [facility] | [facility] | | | | | [facility] | | | | | | Laboratories. | | | | + + + + + + + + | Specimen | + + | | + + + + + + + | Performing | Address | City/State/Zipcode | Phone Number | | Organization | | | | + + + + + | [facility] | [address] | [place] [address] | | | LABORATORY | | | [...] | | | SERUM | performed by [place] | | | | | | [facility] | | | | | | Laboratories. | | | | + + + + + + + + | Specimen | + + | | + + + + + + + | Performing | Address | City/State/Zipcode | Phone Number | | Organization | | | | + + + + + | [facility] | [address] | [place] [address] | | | LABORATORY | | | [...] + | [place] DEPARTMENT OF | [address] | [place] [address] | | | PATHOLOGY | [address] | | | + + + + + | [place] DEPARTMENT OF | [address] | [place] [address] | | | PATHOLOGY | [address] [...] [facility] DEPARTMENT OF | [facility] | [place] [address] | | | PATHOLOGY | [address] | | | + + + + + | [place] DEPARTMENT OF | [facility] | [place] [address] | | | PATHOLOGY | [address] | | | + + + + + documented in this encounter Visit Diagnoses Not on filedocumented in this encounter"
--- OUTSIDE RECORDS SUMMARY | ~2018-11-09 | XMS | Encounter Summary ---
Demographics + + + | Address | [address] | | | [place] [address] | + + + | Home Phone [...] Team Providers + +------+ + | Care Devulcanizer Charger Name | Role | Phone | [...] | | | | | Encounter | [place], [place] | [place] | | | | | for | [address] | [address] | | | | | long-term | | Phone: | | | | | (current) | | [phone] | | | | | use of other | | Fax: | | | | | medications | | [phone] | | | | | LBP (low [...] | | [address] Mail | Ave [place], [place] | episode, moderate | | | | Code: [facility] | [address] | ([facility]) (Primary Dx); | | | | for Health and | [phone] | LBP (low back pain); | | | | Healing, 15th Floor | | Fibromyalgia; | | | | [place], [place] | | Adjustment disorder | | | | [address] | | with anxiety | | | | [phone] | | | +--------+---------+ + + + [...] living with her and her son's girlfr kohler has moved back in. There is a [...] gives her a lot of motivation. Diagnosis: [place] I: 1. (296.32) Major depressive disorder, recurrent, moderate. 2. (309.24) Adjustment disorder with anxiety. [place] II: Deferred [place] III: abdominal pain, migraine headache, low back pain, fibromyalgia. [place] IV: low finances [place] V: GAF 55-60 Plan: return in 1 month. Check mood, pain, activity, stress management. Ask about any ch anges at home, taking care of her own self, sleeping. Continue cognitive/behavioral therapy . Total time spent with patient was approximately 45 minutes. LUKASZ CHARLES PHD [facility], [address] [place] [address] documented in this en counter Plan of [...]
--- OUTSIDE RECORDS SUMMARY | ~2018-11-09 | XMS | Encounter Summary ---
Demographics + + + | Address | [address] | | | [place] [address] | + + + | Home Phone [...] Author + + + | Author | [facility] | + + + | Organization | [facility] | + + + | [...] Team Providers + +------+ + | Care Firer Bisque Kiln Name | Role | Phone | + [...] | | | | Clinical Nutrition | [place], [place] | | | | | [address] | [address] | | | | | [facility] | [phone] | | | | | Mailcode: OPC5 | | | | | | Outpatient Clinic | | | | | | [facility] | | | | | | [place] [address] | | | | | | [phone] | | | +--------+ + + + [...] [facility] | [address] | [place], [place] | | | [facility] | | [address] | | + + + + + [...] | + + + + + | [facility] | [address] | [place] [address] | | | LABORATORY | | | [...] | + + + + + | [facility] DEPARTMENT OF | [address] | [place] [address] | | | PATHOLOGY | [address] | | | + + + + + | [facility] DEPARTMENT OF | [address] | [place] [address] | | | PATHOLOGY | [address] [...] | + + + + + | [facility] DEPARTMENT | [address] [facility] | [place] [address] | | | PATHOLOGY | [address] | | | + + + + + | [facility] | [address] [facility] | [place] [address] | | | PATHOLOGY | [address] [...] | + + + + + | [facility] DEPARTMENT OF | [address] | [place] [address] | | | PATHOLOGY | [address] | | | + + + + + | [facility] DEPARTMENT | [address] | [place] [address] | | | PATHOLOGY | [address] [...] | + + + + + | [facility] DEPARTMENT OF | [address] | [place] [address] | | | PATHOLOGY | [address] | | | + + + + + | [facility] DEPARTMENT OF | [address] | [place] [address] | | | PATHOLOGY | [address] | | | + + + + + documented in this encounter Visit Diagnoses Not on filedocumented in this encounter"
--- OUTSIDE RECORDS SUMMARY | ~2018-11-09 | XMS | Encounter Summary ---
Demographics + + + | Address | [address] | | | [place] [address] | + + + | Home Phone [...] + +------+ + | Care Director Of Event Management Name | Role | Phone | [...] | | 2004 | anned | [address] [facility] | | | | | | [facility] | | | | | | [place], [place] | | | | | | [address] | | | +--------+ + + + [...]
--- OUTSIDE RECORDS SUMMARY | ~2018-11-09 | XMS | Encounter Summary ---
Demographics + + + | Address | [address] | | | [place] [address] | + + + | Home Phone [...] Providers + +------+ + | Care Auto Washer Name | Role | Phone | + +------+ + | Sulaiman Carrera MD | PCP | Unavailable | + +------+ + Encounter Details +--------+ + + + + | Date | Type | Department | Care Team | Description | +--------+ + + + + | 12/06/ | Hospital | Registration 3181 | Chris Padgett, | | | 2004 | Activity | [address] | [address] [facility] | | | | | [facility] Mailcode: | [address] | | | | | [address] [place], [place] | [place], [place] | | | | | [address] | [address] | | | | | [phone] | [phone] | | | | | | | [...] | + + + + + | [facility] [place] | [address] [facility] | [place] [address] | | | PATHOLOGY | [address] | | | + + + + + | [facility] [place] [place] | [address] [place] [address] | [place] [address] | | | PATHOLOGY | [address] [...] | [facility] DEPARTMENT | [address] [facility] | [place] [address] | | | PATHOLOGY | [address] | | | + + + + + | [facility] [place] [place] | [address] [place] [address] | [place] [address] | | | PATHOLOGY | [address] [...] [facility] DE[facility] | [address] | [place] [address] | | | PATHOLOGY | [address] | | | + + + + + | [place] DEPARTMENT OF | [address] | [place] [address] | | | PATHOLOGY | [address] | | | + + + + + MAGNESIUM, PLASMA (12/07/2004 6:42 AM PDT) + +-------+ + + + | Component | Value | Ref Range | Performed | Pathologist | | | | | At | Signature | + +-------+ + + + | MAGNESIUM,P | 1.8 | 1.8 - 2.5 mg/dL | [facility] | | | LASMA | | | [...] [facility] DE[facility] | [address] [facility] | [place] [address] | | | PATHOLOGY | [address] | | | + + + + + | [facility] DEPARTMENT OF | [facility] | [place] [address] | | | PATHOLOGY | [address] | | | + + + + + documented in this encounter Visit Diagnoses Not on filedocumented in this encounter"
--- OUTSIDE RECORDS SUMMARY | ~2018-11-09 | XMS | Encounter Summary ---
Demographics + + + | Address | [address] | | | [place] [address] | + + + | Home Phone [...] Providers + +------+ + | Care Marketing Account Executive Name | Role | Phone | + +------+ + | Pedrito Gutierrez MD | PCP | | + +------+ + Encounter Details +--------+---------+ + + + | Date | Type | Department | Care Team | Description | +--------+---------+ + + + | 08/05/ | Office | [facility] | Nathalia Arora | Cervical Spondylosis | | 2006 | Visit | [facility] | [address] | without Myelopathy | | | | [place] [address] | Clementina Wiknler [place], | (Primary Dx); | | | | [address] Mail Code: | [place] [address] | Spondylosis with | | | | [facility] | | Myelopathy, Lumbar | | | | Health and Healing, | | Region; Herniated | | | | 15th Floor | | Lumbar | | | | [place], [place] | | Intervertebral Disc; | | | | [address] | | Unspecified Myalgia | | | | [phone] | | and Myositis | +--------+---------+ + [...] Medicare Progress Note Date: 08/05/2006 Belinda Meehan [id number] Start of Care: 06/23/2006 Referring Provider: [...] keep hydrated, went to the ED in [place] and was sent home by the M.DYudy [...] other week. Treatment began: 1099 Treatment ended: 115 Nathalia Arora, Physical Therapist License number [id number] documented in this encoun ter Plan of Treatment + + +--------+ + + | Name | Type | Priori | Associated Diagnoses | Order Schedule | | | | ty | | | + + +--------+ + + | AR MANUAL THER | Procedures | Routin | [...] + + +--------+ + + | AR THERAPEUTIC | Procedures | Routin | Cervical [...] + + +--------+ + + | AR THERAPEUTIC | Procedures | Routin | Cervical [...]
--- OUTSIDE RECORDS SUMMARY | ~2018-11-09 | XMS | Encounter Summary ---
Demographics + + + | Address | [address] | | | [place] [address] | + + + | Home Phone [...] Team Providers + +------+ + | Care Recording Studio Setup Worker Name | Role | Phone | [...] | Pain | Diagnoses | [place], | [place], | | | | Management | LBP (low | NIHARIKA Jean | Lukasz Rhodes, PhD | | | | | back pain) | [address] | [address] | | | | | DJD | [address] | [address] | | | | | (degenerativ | [place], [place] | [place], [place] | | | | | e joint | [address] | [address] | | | | | disease) of | | Phone: | | | | | knee Knee | | [phone] | | | | | pain Major | | Fax: | | | | | depressive | | [phone] | | | | | disorder, | [...] 04/28/ | Office | [facility] at [facility] | Lukasz Charles, | Major Depressive | | 2007 | Visit | 15th Floor [address] | PhD [address] | Disorder, Recurrent | | | | [address] Mail | Ave [place], [place] | Episode, Mild (HCC); | | | | Code: [facility] Center | [address] | LBP (Low Back | | | | for Health and | [phone] | Pain); Migraine | | | | Healing, 15th Floor | | Headache | | | | [place], [place] | | | | | | [address] | | | | | | [phone] | | | +--------+---------+ + + + [...] scheduled to come here after surgery. Diagnosis: [place] I: 1. (296.31) Major depressive disorder, recurrent, mild. 2. (309.24) Adjustment disorder with anxiety. 3. 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 [place] II: Deferred [place] III: abdominal pain, migraine headache, low back pain. [place] IV: low finances [place] V: GAF 55-60 Plan: return with next medical follow-up appointment. Check mood, pain, surgical recovery , relaxation, activity, distraction, eating. Ask about headaches, fainting, Thanksgiving. Continue cognitive/behavioral therapy. Total time spent with patient was approximately [address] [facility] [address] [facility], [address] [place] [address] documented in this encount Plan of Treatment + + +--------+ + + | Name | Type | Priori | Associated Diagnoses | Order Schedule | | | | ty | | | + + +--------+ + + | [facility], | Procedures | Routin | Major Depressive | Ordered: 04/28/2008 | | OFFICE (90-87) | | e | Disorder, Recurrent | [...]
--- OUTSIDE RECORDS SUMMARY | ~2018-11-09 | XMS | Encounter Summary ---
Demographics + + + | Address | [address] | | | [place] [address] | + + + | Home Phone [...] Team Providers + +------+ + | Care Job Boss Name | Role | Phone | [...] 10/28/ | Office | [facility] at [facility] | Lukasz Charles, | Major Depressive | | 2006 | Visit | 15th Floor [address] | PhD [address] | Disorder, Recurrent | | | | [address] Mail | Ave [place], [place] | Episode, Moderate | | | | Code: [facility] Center | [address] | ([facility]); Neck Pain; | | | | for Health and | [phone] | Herniated Lumbar | | | | Healing, 15th Floor | | Intervertebral Disc | | | | [place], [place] | | L4-5; 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 She has been doing cross stitch [...] She has using good self-care skills. Diagnosis: [place] I: 1. (296.32) Major depressive disorder, recurrent, moderate. 2. (309.24) Adjustment disorder with anxiety. 3. 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 [place] II: Deferred [place] III: abdominal pain, migraine headache, low back pain. [place] IV: low finances [place] V: GAF 50 Plan: Return in 2 weeks. Check preparation for move and for niece's visit, results of orthopedic visit. Check pacing, relaxation, activity, distraction. Continue cognitive/behavioral the rapy. Total time spent with patient was approximately 45 minutes. LUKASZ CHARLES PHD [facility] [address] [facility], 4th [place] [address] documented in this encount er Plan of [...]
--- OUTSIDE RECORDS SUMMARY | ~2018-11-09 | XMS | Encounter Summary ---
Demographics + + + | Address | [address] | | | [place] [address] | + + + | Home Phone [...] Team Providers + +------+ + | Care Garage Construction Equipment Mechanic Name | Role | Phone | + +------+ + | Crystal Gutierrez MD | PCP | | + +------+ + Encounter Details +--------+ + + + + | Date | Type | Department | Care Team | Description | +--------+ + + + + | 09/14/ | Procedure - | [facility] Division of | Endoscopy, Gi | EGD | | 2008 | | Gastroenterology/Hep | | (esophagogastroduode | | | Transcribed | atology [address] | | noscopy) | | | | [address] | | | | | | Road Mailcode: | | | | | | [address] [place] | | | | | | [facility] [address] | | | | | | [place], [place] | | | | | | [address] | | | | | | [phone] | | | +--------+ + + + [...] + + + | PROCEDURES:PANENDOSCOPY (EGD) CPT: [id number]. PERSONNEL:THE | | | ATTENDING PHYSICIAN WAS [...] AM PDT | | PROCEDURES:PANENDOSCOPY (EGD) CPT: [id number]. | | PERSONNEL:THE ATTENDING PHYSICIAN WAS PRESENT [...]
--- OUTSIDE RECORDS SUMMARY | ~2018-11-09 | XMS | Encounter Summary ---
Demographics + + + | Address | [address] | | | [place] [address] | + + + | Home Phone [...] Providers + +------+ + | Care Tank Insulator Rubber Name | Role | Phone | + [...] + + | 01/21/ | Telephone | Kraig Turner | Beto Meeks MD | Lab Results | | 2013 | | [facility] | [address] | | | | | [facility] | [place], [place] | | | | | [place] [address] | [address] | | | | | [address] | [phone] | | | | | Road Physicians | | | | | | [facility] | | | | | | [facility], | | | | | | [place] [address] | | | | | | [phone] | | | +--------+ + + + [...]
--- OUTSIDE RECORDS SUMMARY | ~2018-11-09 | XMS | Encounter Summary ---
Demographics + + + | Address | [address] | | | [place] [address] | + + + | Home Phone [...] Team Providers + +------+ + | Care Swatcher Name | Role | Phone | + [...] [address] | | | | | | [facility] Mailcode: | | | | | | [address] [place], [place] | | | | | | [address] | | | | | | [phone] | | | +--------+ + + + [...]
--- OUTSIDE RECORDS SUMMARY | ~2018-11-09 | XMS | Encounter Summary ---
Demographics + + + | Address | [address] | | | [place] [address] | + + + | Home Phone [...] Team Providers + +------+ + | Care Telecommunications Line Installer Name | Role | Phone | [...] | Procedures | [address] | [facility] | | | | | CONSULT TO | Naeem Mcrae | Mailcode: | | | | | GI PROCEDURE | Rd | [address] | | | | | UNIT: EGD | [place], [place] | [place] | | | | | | [address] | [address] | | | | | | Phone: | [place], | | | | | | [phone] | [place] [address] | | | | | | | Phone: | | | | | | | [phone] | | | | | | | Fax: | | | | | | | [phone] | +--------+--------+ + + + + Consultation [...] | Procedures | [address] | [facility] | | | | | CONSULT TO | Naeem Mcrae | Mailcode: | | | | | GI PROCEDURE | Rd | [address] | | | | | UNIT: | [place], [place] | [place] | | | | | COLONOSCOPY | [address] | [address] | | | | | | Phone: | [place], | | | | | | [phone] | [place] [address] | | | | | | | Phone: | | | | | | | [phone] | | | | | | | Fax: | | | | | | | [phone] | +--------+--------+ + + + + Reason [...] + + | 03/10/ | Office | [facility] Division of | Carlos Arreola, | Chronic Abdominal | | 2005 | Visit | Gastroenterology/Hep | [address] | Pain; Iron | | | | atology [address] | [address] | Deficiency | | | | [address] | [place] [address] | | | | | Road Mailcode: | [phone] | | | | | [address] [facility]icians | | | | | | [address] | | | | | | [place], [place] | | | | | | [address] | | | | | | [phone] | | | +--------+---------+ + + + [...] contact me, please do so by calling [phone] and asking for my central supply assistant Cierra Alexis. I always do my [...] other questions or issues. Carlos Arreola MD. [facility] Division Of Gastroenterology/Hepatology [facility] [facility] [address] [place] [address] documented in this encounter Progress Anup Plascencia [...] prior heavy use 20 -25yrs ago ('tended barrel cooper then'). Lost 200lbs psot bypass surgery, has [...] [facility] DEPARTMENT OF | [facility] | [place] [address] | | | PATHOLOGY | [address] | | | + + + + + | [place] DEPARTMENT OF | [facility] | [place] [address] | | | PATHOLOGY | [address] [...] | [facility] | [address] | [place] [address] | | | PATHOLOGY | [address] | | | + + + + + | [facility] | [address] | [place] [address] | | | PATHOLOGY | [address] [...] | [facility] | [address] | [place] [address] | | | PATHOLOGY | [address] | | | + + + + + | [facility] | [facility] | [place] [address] | | | PATHOLOGY | [address] [...] DEPARTMENT OF | [address] | [place] [address] | | | PATHOLOGY | [address] | | | + + + + + | [facility] | [address] | [place] [address] | | | PATHOLOGY | [address] [...] | | | | | performed by [employer] | pg/mL | | | | | [facility]. | | | | + + + + + + + + | Specimen | + + | | + + + + + + + | Performing | Address | City/State/Zipcode | Phone Number | | Organization | | | | + + + + + | [facility] | [address] | [place] [address] | | | LABORATORY | | | [...] | | | | | performed at [place] | | | | | | [facility] | | | | | | Laboratory | | | | + + + + + + + + | Specimen | + + | | + + + + + + + | Performing | Address | City/State/Zipcode | Phone Number | | Organization | | | | + + + + + | [facility] | [address] | [place] [address] | | | LABORATORY | | | | + + + + + documented in this encounter Visit Diagnoses + + | Diagnosis | + + | Chronic abdominal pain Abdominal pain, unspecified site | + + | Iron deficiency Other disorders of iron metabolism | + + documented in this encounter"
--- OUTSIDE RECORDS SUMMARY | ~2018-11-09 | XMS | Encounter Summary ---
Demographics + + + | Address | [address] | | | [place] [address] | + + + | Home Phone [...] Providers + +------+ + | Care Fuel Testing Technician Name | Role | Phone | + +------+ + | Pedrito Gutierrez MD | PCP | | + +------+ + Encounter Details +--------+---------+ + + + | Date | Type | Department | Care Team | Description | +--------+---------+ + + + | 11/24/ | Office | Comprehensive Pain | Nathalia Arora | Left Knee Pain; | | 2006 | Visit | [facility] | [address] | Spondylosis with | | | | [address] | Clementina Winkler [place], | Myelopathy, Lumbar | | | | [address] Kovacs Mail Code: | [place] [address] | Region; Herniated | | | | [facility] | | Lumbar | | | | [facility], | | Intervertebral Disc | | | | 15th Floor | | L4-5; Fibromyalgia | | | | [facility] [place] | | syndrome 729.1 | | | | [address] | | | | | | [phone] | | | +--------+---------+ + + + [...] December 02, 2006 Patient: Belinda J Shefali, [id number], 1960 I agree with the proposed Physical Therapy Treatment Plan. Provider: DELFINA MOLINA ANP Nathalia Garrett - 007 11:16 AM PDT Physical Therapy Medicare Progress Note Date: 11/27/2006 Belinda Meehan [id number]. 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 hotel concierge goals: Improve gait so patient can ambulate with single based cane. Plan: Patient will return for f/u visit in 2 weeks and at that time will progress in core, hip, and knee strengthening regime. Treatment began: 1100 Treatment ended: 1200 Nathalia Arora, Physical Therapist License #[id number] documented in this encoun ter Plan of Treatment + + +--------+ + + | Name | Type | Priori | Associated Diagnoses | Order Schedule | | | | ty | | | + + +--------+ + + | [facility] | Procedures | Routin | [...]
--- OUTSIDE RECORDS SUMMARY | ~2018-11-09 | XMS | Encounter Summary ---
Demographics + + + | Address | [address] | | | [place] [address] | + + + | Home Phone [...] | Organization | [facility] | | | and Jairana [...] + + | 09/03/ | Telephone | [facility] | Alanis, | Fall; Hip Pain | | 2018 | | MEDICINE [address] [place] [address] | MD Petrona | | | | | [facility] | [address] [place] [address] | | | | | [place] [address] | [place] [address] | | | | | [phone] | [phone] | | | | | | | [...] | | | | | [place] [address] | | | | | | [phone] | | | | | | | | +--------+---------+ + + + documented as of this encounter Visit Diagnoses Not on filedocumented in this encounter"
--- OUTSIDE RECORDS SUMMARY | ~2018-11-09 | XMS | Encounter Summary ---
Demographics + + + | Address | [address] | | | [place] [address] | + + + | Home Phone [...] Team Providers + +------+ + | Care Lathe Tender Name | Role | Phone | + +------+ + | Sulaiman Carrera MD | PCP | Unavailable | + +------+ + Encounter Details +--------+ + + + + | Date | Type | Department | Care Team | Description | +--------+ + + + + | 03/19/ | Ancillary | Registration [address] | | | | 2004 | [address] | | | | | n | [facility] Mailcode: | | | | | | RPB07 [place], [place] | | | | | | [address] | | | | | | [phone] | | | +--------+ + + + [...]
--- OUTSIDE RECORDS SUMMARY | ~2018-11-09 | XMS | Encounter Summary ---
Demographics + + + | Address | [address] | | | [place] [address] | + + + | Home Phone [...] Providers + +------+ + | Care Customer Insight Analyst Name | Role | Phone | [...] as of this encounter Progress Notes Interface, Icu Clerk In - 01/12/2005 10:09 AM PDT [id number] [facility] Date: 12/25/2004 Clinic: GENERAL [...] will send an emergency supply fax to [facility] at fax #[phone], first 30 pills, oxycodone 5 mg to [...] the current plan. Melisa Thorne / SHARIF [id number] / [id number] / [id number] / [id number] Electronically signed by Kenisha [place] 01-01-2005 04:41:20 PM documented i n this encounter Plan of Treatment Not on filedocumented as of this encounter Visit Diagnoses Not on filedocumented in this encounter"
--- OUTSIDE RECORDS SUMMARY | ~2018-11-09 | XMS | Encounter Summary ---
Demographics + + + | Address | [address] | | | [place] [address] | + + + | Home Phone [...] Team Providers + +------+ + | Care Coffee Roaster Helper Name | Role | Phone | + +------+ + | Pedrito Gutierrez MD | PCP | | + +------+ + Encounter Details +--------+------+ + + + | Date | Type | Department | Care Team | Description | +--------+------+ + + + | 08/28/ | Lab | Laboratory at [facility] | | Chronic Abdominal | | 2008 | | [address] | | Pain; Status Post | | | | [place], [place] | | Bariatric Surgery | | | | [address] | | | | | | [phone] | | | +--------+------+ + + + [...] Performed At | + + + | [id number] Estimated GFR > 60 mL/min/1.73 sq m if non- | [facility] | | [place] [id number] Estimated GFR > 60 mL/min/1.73 sq m if | DEPARTMENT OF | | [place] GFR is estimated using the MDRD equation [...] Vegetarian diet - Rapidly changing kidney function Sample | | | hemolyzed. Results for K, Total Bili., Direct Bili., AST, LD, or HDL | | | may be inaccurate. Refer to comment under test result. * Corrected | | | 08/29/08 08:40: K COMMENT, prev report: SL HEMO | | + + + + + + + + | Performing | Address | City/State/Zipcode | Phone Number | | Organization | | | | + + + + + | [facility] | [address] | [place] [address] | | | PATHOLOGY | [address] | | | + + + + + | [facility] DEPARTMENT | [address] | [place] [address] | | | PATHOLOGY | [address] | | | + + + + + INR (08/28/2008 3:31 PM PDT) + + + + + + | Component | Value | Ref Range | Performed | Pathologist | | | | | At | Signature | + + + + + + | INR | 0.96Comment: | 0.90 - 1.20 INR | [facility] | | | | INR | | [...] | [facility] DEPARTMENT OF | [address] | [place] [address] | | | PATHOLOGY | [address] | | | + + + + + | [facility] DEPARTMENT OF | [address] | [place] [address] | | | PATHOLOGY | [address] | | | + + + + + documented in this encounter Visit Diagnoses + + | Diagnosis | + + | Chronic abdominal pain Abdominal pain, unspecified site | + + | Status post bariatric surgery Bariatric surgery status | + + documented in this encounter"
--- OUTSIDE RECORDS SUMMARY | ~2018-11-09 | XMS | Encounter Summary ---
Demographics + + + | Address | [address] | | | [place] [address] | + + + | Home Phone [...] Providers + +------+ + | Care Golf Course Designer Name | Role | Phone | [...] 10/18/ | Office | Rheumatology at | HrCaitlin kaba, | Fibromyalgia | | 2007 | Visit | [facility] [address] | COLLEGE COUNSELOR | syndrome 7[address] | | | | [address] [facility] [address] | | (Primary Dx); | | | | Physicians [address] | | Fibromyalgia | | | | [place], [place] | | | | | | [address] | | | | | | [phone] | | | +--------+---------+ + + + [...] Placed This Encounter GEODON 20 MG CAP doshantelle colin in this encounter Plan of Treatment + + +--------+ + + | Name | Type | Priori | Associated Diagnoses | Order Schedule | | | | ty | | | + + +--------+ + + | SD INJECT TRIGGER | Procedures | Routin | [...]
--- OUTSIDE RECORDS SUMMARY | ~2018-11-09 | XMS | Encounter Summary ---
Demographics + + + | Address | [address] | | | [place] [address] | + + + | Home Phone [...] Providers + +------+ + | Care Warehouse Record Clerk Name | Role | Phone | [...] | | | | Clinical Nutrition | [place], [place] | | | | | [address] | [address] | | | | | [facility] | [phone] | | | | | Mailcode: [id number] | | | | | | Outpatient Clinic | | | | | | [facility] | | | | | | [place] [address] | | | | | | [phone] | | | +--------+ + + + [...] | + + + + + | [facility] | [address] | [place] [address] | | | LABORATORY | | | [...] | pg/mL | | | | | [facility] | | | | | | Laboratory. | | | | + + + + + + + + | Specimen | + + | | + + + + + + + | Performing | Address | City/State/Zipcode | Phone Number | | Organization | | | | + + + + + | [facility] | [address] | [place] [address] | | | LABORATORY | | | [...] DEPARTMENT OF | [address] | [place] [address] | | | PATHOLOGY | [address] | | | + + + + + | [facility] DEPARTMENT OF | [address] | [place] [address] | | | PATHOLOGY | [address] [...] + + + + | [facility] | [address] | [place] [address] | | | PATHOLOGY | [address] | | | + + + + + | [facility] | [facility] | [place] [address] | | | PATHOLOGY | [address] | | | + + + + + documented in this encounter Visit Diagnoses Not on filedocumented in this encounter"
--- OUTSIDE RECORDS SUMMARY | ~2018-11-09 | XMS | Encounter Summary ---
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 [address] | [facility] | of Bone and | | | | Mailcode: PV430 | [address] | Articular Cartilage | | | | Physician's Sharmila | [address] [place], | (Primary Dx) | | | | [place], [place] | [place] [address] | | | | | [address] | [phone] | | | | | [phone] | | | +--------+ + + + [...]
--- OUTSIDE RECORDS SUMMARY | ~2018-11-09 | XMS | Encounter Summary ---
Demographics + + + | Address | [address] | | | [place] [address] | + + + | Home Phone [...] Team Providers + +------+ + | Care Automobile Rental Representative Name | Role | Phone | [...] of this encounter Progress Notes Interface, Construction Site Crossing Guard In - 09/13/2005 2:06 AM PST [id number] [facility]ANNI [facility] Date: 07/03/2005 Clinic: [...] which are pending through the laboratory in [place]. Allergies: PENICILLIN, CODEINE, KEFLEX, SULFA, CIPRO, AND [...] which were done several days ago in [place]. Beto Meeks M.D. PD / HS [id number] / [id number] / [id number] / [id number] cc: Chris Padgett M.D. [facility] Electronically signed by Beto Meeks 09-12-2005 02:23:07 AM documented i n this encounter Plan of Treatment Not on filedocumented as of this encounter Visit Diagnoses Not on filedocumented in this encounter"
--- OUTSIDE RECORDS SUMMARY | ~2018-11-09 | XMS | Encounter Summary ---
Demographics + + + | Address | [address] | | | [place] [address] | + + + | Home Phone [...] Providers + +------+ + | Care Loan Servicing Officer Name | Role | Phone | [...] Telephone | [facility] | Nuris Cardenas NP | Abdominal pain | | 2005 | | Center [address] | [address] | | | | | [facility] | [place] [address] | | | | | Mailcode: [id number] | | | | | | Physicians [address] | | | | | | [place], [place] | | | | | | [address] | | | | | | [phone] | | | +--------+ + + + [...]
--- OUTSIDE RECORDS SUMMARY | ~2018-11-09 | XMS | Encounter Summary ---
Demographics + + + | Address | [address] | | | [place] [address] | + + + | Home Phone [...] + +------+ + | Care Special Education Director Name | Role | Phone | + +------+ + | Maria Esther Cintron MD | PCP | Unavailable | + +------+ + Encounter Details +--------+------+ + + + | Date | Type | Department | Care Team | Description | +--------+------+ + + + | 12/21/ | Lab | Laboratory, | | Metabolic syndrome X | | 2012 | | Specimen Collection | | 250.80 (Primary | | | | at [facility] 3rd Floor | | Dx); Hypothyroidism; | | | | [address] | | Essential | | | | [address] | | hypertension 401.9; | | | | [place], [place] | | Type II or | | | | [address] | | unspecified type | | | | [phone] | | diabetes mellitus | | | [...] | | | LABORATORY | | | [place] | | | SERVICES, | | | [...] | | Interpretive Information: <60 mL/min/1.73 sq | SERVICES, CORE | | m Chronic Kidney Disease <15 mL/min/1.73 | | | sq m Kidney Failure Estimated GFR greater | | | that 60 mL/min/1.73 sq m is of limited clinical value. The MDRD | | | equation is not valid in the following situations: - Patients under | | | 18 years of age - Severe malnutrition or obesity - Vegetarian diet | | | - Rapidly changing kidney function New reference range effective | | | 09/28/2012 for Total proteins performed in Core Lab only. | | + + + + + + + + | Performing | Address | City/State/Zipcode | Phone Number | | Organization | | | | + + + + + | [facility] | [address] | [place] [address] | | | SERVICES, CORE | [address] [...] | + + + + + | [facility] | [address] | [place] [address] | | | SERVICES, CORE | [address] [...] | | | Information If | | [facility] | | | | you are screening [...] + | [facility] | [address] | [place] [address] | | | [place] | | | [...] + | [facility] | [address] | [place] [address] | | | SERVICES, SPECIAL | [address] [...] + | [facility] | [address] | [place] [address] | | | SERVICES, CORE | PARK [...] + | [facility] | [address] | [place] [address] | | | SERVICES, SPECIAL | [address] [...] by | | | | | | [address] | | | | | | Abdiaziz Morales, [facility] | | | | | | [address] | | | | | | [phone].[email or web address]. | | | | | | abraham, [...] [facility] | [address] | [place], [place] | | | [facility] | | [address] | | + + + + + [...] | + + + + + | [facility] | [address] | [place] [address] | | | SERVICES, SPECIAL | [address] [...] + | [facility] | [address] | [place] [address] | | | [place] | | | [...]
--- OUTSIDE RECORDS SUMMARY | ~2018-11-09 | XMS | Encounter Summary ---
Demographics + + + | Address | [address] | | | [place] [address] | + + + | Home Phone [...] | Organization | [facility] | | | and [...] Team Providers + +------+ + | Care Dish Technician Name | Role | Phone | + +------+ + | Petrona Thapa | PCP | | | MD | | | + +------+ + Encounter Details +--------+ + + + + | Date | Type | Department | Care Team | Description | +--------+ + + + + | 09/06/ | Abstract | [facility] | Provider, | | | 2019 | | GASTROENTEROLOGY | MD [address] | | | | | [address] [facility] | [address] | | | | | [address] | [place] [address] | | | | | [address] | | | | | | [phone] | | | +--------+ + + + [...] [facility] | | | | | | [place] [address] | | | | | | [phone] | | | | | | | [...]
--- OUTSIDE RECORDS SUMMARY | ~2018-11-09 | XMS | Encounter Summary ---
Demographics + + + | Address | [address] | | | [place] [address] | + + + | Home Phone [...] Providers + +------+ + | Care Mannequin Coloring Artist Name | Role | Phone | [...] | | 2003 | anned | [address] [facility] | | | | | | [facility] | | | | | | [place], [place] | | | | | | [address] | | | +--------+ + + + [...]
--- OUTSIDE RECORDS SUMMARY | ~2018-11-09 | XMS | Encounter Summary ---
Demographics + + + | Address | [address] | | | [place] [address] | + + + | Home Phone [...] Providers + +------+ + | Care Supervisor Molding Name | Role | Phone | + [...]
--- OUTSIDE RECORDS SUMMARY | ~2018-11-09 | XMS | Encounter Summary ---
Demographics + + + | Address | [address] | | | [place] [address] | + + + | Home Phone [...] Providers + +------+ + | Care Train Controller Name | Role | Phone | [...] Lab findings, | | 2007 | | [facility] [address] | [address] | teaching, guidance, | | | | [address] Mailcode: | [address] | and counseling | | | | [facility] for | [place], [place] | | | | | Health and Healing, | [address] | | | | | [facility] floor [place], | [phone] | | | | | [place] [address] | | | | | | [phone] | | | +--------+ + + + [...]
--- OUTSIDE RECORDS SUMMARY | ~2018-11-09 | XMS | Encounter Summary ---
Demographics + + + | Address | [address] | | | [place] [address] | + + + | Home Phone [...] Team Providers + +------+ + | Care Per Diem Physical Therapist Name | Role | Phone | + +------+ + | Pedrito Gutierrez MD | PCP | | + +------+ + Reason for Visit + + + | Reason | Comments | + + + | Back pain | leg and knee pain | + + + Encounter Details +--------+---------+ + + + | Date | Type | Department | Care Team | Description | +--------+---------+ + + + | 03/31/ | Office | [facility] | PetraDelfina, | Encounter for | | 2006 | Visit | Pain Center at | ANP | Long-Term (Current) | | | | [facility] | | Use of Opioids; Left | | | | [address] | | Knee Pain; | | | | Mail Code: CH15P | | Arthroplasty of the | | | | [facility] | | Left Knee; DJD | | | | and Healing, | | (Degenerative Joint | | | | Floor [place], [place] | | Disease) of Knee; | | | | [address] | | Fibromyalgia | | | | [phone] | | syndrome 729.1; | | | | | | Adjustment Disorder | | | | | | with Anxiety; LBP | | | | | | (Low Back Pain); | | | | | | Spondylosis [...] + | Blood Pressure | 100/62 | 03/31/2007 9:15 AM | | | | | PDT | | + + + + + | Pulse | 90 | 03/31/2007 9:15 AM | | | | | PDT | | + + + + + | Temperature | 37.8 C (100 F) | 03/31/2007 9:15 AM | | | | | PDT | | + + + + + | Respiratory Rate | 16 | 03/31/2007 9:15 AM | | | | | PDT | | + + + + + | Oxygen Saturation | - | - | | + + + + + | Inhaled Oxygen | - | - | | | Concentration | | | | + + + + + | Weight | 84.4 kg (186 lb 1.6 | 03/31/2007 9:15 AM | | | | oz) | PDT | | + + + + + | Height | 175.3 cm (5' 9") | 03/31/2007 9:15 AM | | | | | PDT | | + + + + + | Body Mass Index | 27.48 | 03/31/2007 9:15 AM | | | | | PDT | | + + + + + documented in this encounter Patient Instructions Patient Instructions Delfina Molina - 03/31/2007 10:[address] Ogden Continue PT for left knee Follow up after PT for knee has finished to discuss PT for the lower back Continue with Oxycontin 40mg 1 tablet every [address] Brenda SHEEHAN Follow up with Dr. Vasquez for your Acute pain management documented in this encounter Progress Notes Delfina Molina - 03/31/2007 9:40 AM PDTFormatting of this note might be different from lesli gomez. 03/31/2007 Belinda Meehan is a 47 y.o. female [facility] Pain Center Return Visit Chief Complaint: Chief Complaint Patient presents with Back pain leg and knee pain History of Present Illness: Belinda Meehan is a 47 y.o. year-old female with a history of chronic pain due to No diagnosis found. Belinda Meehan is here today for a follow up visit to review chronic pain management plan of care. Since prior visit this condition has improved. She does have new pain complaints in the left knee since her left knee arthroplasty she reports she exchanged one pain for ano ther, her bone on horta feeling has tete and she describes the left knee pain as a hot burning pressure. Expectations for this visit include continue current pain medication and see if I will pres cribe the hydrocodone for her acute pain as Dr. Vasquez her surgeon is no in the clinic today. A Brief Pain Inventory and a pain drawing has be completed, which I reviewed. Current pain intensity of the left knee which is her worst pain on a VA Scale 0-10 is: 10 with current th erapy providing 10 % relief of pain. The worst pain today is located in the left knee and described as hot burning pressure Made better by hydrocodone and elevation also ice , and made worse by gravity and weight be aring. She reports that he lower back pain "is still there, bothers me every day" however the left knee pain is overriding this pain since her surgery. Treatment since last visit includes: medication management and physical therapy Since prior visit, mood is reported to be: unchanged and sleep reported to be unchanged. Review of Systems: Bones, Joints, and Muscles: joint pain, muscle pain and stiffness Gastrointestinal System: negative Genitourinary System: negative Nervous System: weakness Psychiatric History: depressed mood and sleep disturbance Since prior visit, there have been no changes in past medical history, family history, or s ocial history. Left knee arthroplasty date not taken Current outpatient prescriptions Medication Sig Dispense Refill Oxcarbazepine (TRILEPTAL) 150 mg Oral Tablet take 1 1/2 tablets by mouth twice daily 9 0 5 Cyanocobalamin 1,000 mcg/mL Injection Syringe 1 inj q month Multivitamin Oral Tablet 1 tab po bid Risedronate Sodium (ACTONEL) 35 mg Oral Tablet 1 tab po q week Procaine HCl 1 % Injection Solution 0.5% 8 cc 0 Ferrous Sulfate 325 (65) mg Oral Tablet [...] Surgical History Procedure Date Gastric bypass C. Devenejeannie wt 278 01/18 Paniculectomy Hx cholecystectomy Hx salpingo-oophorectomy Colonoscopy 03/2006 Hx tonsillectomy Pr d&c after delivery Pr inject trigger point, 1 or 2 Hx knee replacement Hx hysterectomy Hx section Family History Problem Relation Cancer Mother Heart Father Additional Family History Father Migraine Additional Family History Mother Migraine Physical examination: BP 100/62 | Pulse 90 | Temp (Src) 100 F (37.8 C) (Oral) | Resp 16 | Ht 1.753 m (5' 9") | Wt 84.414 kg (186 lbs 1.6 oz) Body mass index is 27.48 kg/(m^2). General appearance: Alert in no acute distress, well groomed, pleasant Left knee: surgical scar healed and well approximated, warm no redness or discharge, it is swollen but according to Belinda it has decreased in size. She has a low grade temp 100 degrees today does not have an URTI or cough does feel chilled . She wonders if is because she has been out of her hydrocodone for several days and having withdrawal. No hypesthesia, allodynia hyperalgesia or hyperpathia Impression: V58.69 Encounter for Long-Term (Current) Use of Opioids 719.46J Left Knee Pain V43.65D Arthroplasty of the Left Knee 715.36B DJD (Degenerative Joint Disease) of Knee 729.1 Fibromyalgia syndrome 729.1 309.24 Adjustment Disorder with Anxiety 724.2AF LBP (Low Back Pain) 721.42 Spondylosis with Myelopathy, Lumbar Region 722.10H Herniated Lumbar Intervertebral Disc L4-5 I am transferring Belinda Barnes to Dr. Gutierrez as of today, for monitoring and maintenance of me dical pain management due to chronic abdominal pain, lumbar spondylosis with radiculopathy, DJD of the knees and fibromyalgia. I see no value in her continuing here at the [facility] until her bilateral knee surgical plans have been finalized and she has physically rehabilitated. Our treatment plans for chronic lower back pain which was her major pain complaint has been postponed due to the knee surgery she is stable on her opioid therapy has been compliant with all aspects of chronic opioid therapy , is using the medication as directed, demonstrates benefits, and has no serious adverse effects. There were no significant cognitive or mood impairments. T here is no evidence of diversion past or present. Dr Slaughter is currently prescribing and I see no need to change her dose. I would like to anticipate follow at the [facility] in 2-3 months or sooner as is felt necessary to work with the lower back pain due to lumbar spondylosis and radiculo aleksander. Most of her pain today is acute pain and I would like Dr. Vasquez or Dr. Gutierrez to prescribe and manage this. Recommendations/Plan: A 30 minute visit with greater than 50% spent in reviewing the progress notes and counselli ng/education of the patient. 1. Continue with pain psychology Dr. Ogden schedule as planned 2. Continue PT for left knee with Dr. Pedro SHEEHAN. 3. Follow up [facility] after physical therapy for the left knee has edward colin, to discuss PT for the lower back. - I encouraged Belinda to delay the right knee arthroplasty until her left knee has complete ly healed I am concerned about the surgical trauma sensatizing her more aggrevating her fibr omyalgia central sensatization. 4. Continue with Oxycontin 40mg, 1 tablet every [address] Brenda SHEEHAN is now jose aguilar 5. I recommended that she contact Dr. Vasquez for her acute pain management, otherwise it wou ld be reasonable for her to return to oxycodone 5mg, 1 tablet bid PRN pain with Dr. Brenda SHEEHAN. - The pateint was asked to call the clinic with any concerns or questions. DELFINA MOLINA [facility] Mail code CH 4P [facility] and [address] [address] Tasha Can - 03/31/2007 9:15 AM PDTCMA History: PMH/PSH/SH/FH review 1. Has [...] therapy appointments since your last visit? Yes for knee 8. Have you had psychology appointments since your last visit? no 9. Have you had any diagnostic studies since your last appointment? Yes knee 10. Do you require any medication refills today? no documented in this encounter Plan of Treatment Not on filedocumented as of this encounter Visit Diagnoses + + | Diagnosis | + + | Encounter for Long-Term (Current) Use of Opioids Encounter for long-term (current) | | use of other medications | + + | Left Knee Pain [...]
--- OUTSIDE RECORDS SUMMARY | ~2018-11-09 | XMS | Encounter Summary ---
Demographics + + + | Address | [address] | | | [place] [address] | + + + | Home Phone [...] Team Providers + +------+ + | Care Brazer Production Line Name | Role | Phone | [...] [address] | | | | | [address] | [place], [place] | | | | | Health and Healing, | [address] | | | | | 6th floor [place], | [phone] | | | | | [place] [address] | | | | | | [phone] | | | +--------+ + + + [...]
--- OUTSIDE RECORDS SUMMARY | ~2018-11-09 | XMS | Encounter Summary ---
Demographics + + + | Address | [address] | | | [place] [address] | + + + | Home Phone [...] Providers + +------+ + | Care Silk Weaver Name | Role | Phone | + [...] as of this encounter Progress Notes Interface, Scientific Informatics Project Leader In - 01/12/2005 6:32 AM PDT Referred [...] she was going to go to the charity: water food store and try to find another [...] two months. Svetlana Maki R.D. SR/x35 P [id number] signed by Interface, Scientific Informatics Project Leader In at 01/12/2005 6:32 AM [facility] umented in this encounter Plan of Treatment Not on filedocumented as of this encounter Visit Diagnoses Not on filedocumented in this encounter"
--- OUTSIDE RECORDS SUMMARY | ~2018-11-09 | XMS | Encounter Summary ---
Demographics + + + | Address | [address] | | | [place] [address] | + + + | Home Phone [...] Providers + +------+ + | Care Supervisor Agricultural Education Name | Role | Phone | [...] | PPV [address] | [facility] | Pre-Operative | | | | [facility] | Gastro [facility] | Examination (Primary | | | | Mailcode: [id number] | [address] | Dx) | | | | [facility] | [address] [place], | | | | | [place], [place] | [place] [address] | | | | | [address] | [phone] | | | | | [phone] | | | +--------+---------+ + + + [...] surgeries scheduled to take place on the cairo at the [facility]: Surgeries scheduled in the [facility] ([address] [place] [address]): registration is located on the 4th floor of [facility] (Day Surgery). Surgeries scheduled in the [facility]: registration is located on the 9th floor. Surgeries scheduled in [facility]: registration is located on the 6th floor. Surgeries scheduled in the [facility]: registration is located i n the [facility] on the first floor. For surgeries scheduled to take place at the [facility]: registration is l ocated on the 4th [...] If you use specialized medical equipment at [facility], please check with your provider before bringing [...] surgeries scheduled to take place on the cairo at the [facility]: Surgeries scheduled in the [facility] ( [facility]): registration is located on the 4th floor of [facility] (Day Surgery). Surgeries scheduled in the [facility]: registration is located on the 9th floor. Surgeries scheduled in [facility]: registration is located on the 6th floor. Surgeries scheduled in the [facility]: registration is located i n the [facility] on the first floor. For surgeries scheduled to take place at the [facility]: registration is l [...] you use specialized medical equipment at [facility], please check with your provider before [...] 08/2007 right knee Hx lumbar fusion 05/2008 [id number] with bone spur removals Hx appendectomy Hx [...] (Ciprofloxacin) Tramadol Morphine IM ( only in [facility]) made gut pain worse 08/27/06: Trial of oral MSIR caused leg swelling Clarithromycin Hives Mainly in the legs Jlqjxrc-ttfqfkpijz-nlz-caff Balance problems Amitriptyline Grand mal seizures Fioricet W/codeine (Uov-iwkbfqsrrw-ayhfbbsoiu-caf) FAMILY HISTORY: Family History Problem Relation Cancer [...] | | | | <15 mL/min/1.73 sq | | | | | | m Kidney Failure | | | | | [...] | + + + + + | [facility] | [address] | [place] [address] | | | PATHOLOGY | [address] | | | + + + + + | [facility] DEPART[facility] OF | [address] | [place] [address] | | | PATHOLOGY | [address] [...] DEPARTMENT OF | [address] | [place] [address] | | | PATHOLOGY | [address] | | | + + + + + | [facility] | [address] | [place] [address] | | | PATHOLOGY | [address] | | | + + + + + documented in this encounter Visit Diagnoses + + | Diagnosis | + + | Other specified pre-operative examination - Primary | + + documented in this encounter
--- OUTSIDE RECORDS SUMMARY | ~2018-11-09 | XMS | Encounter Summary ---
Demographics + + + | Address | [address] | | | [place] [address] | + + + | Home Phone [...] Providers + +------+ + | Care Casting Room Operator Name | Role | Phone | [...] as of this encounter Progress Notes Interface, Deburrer Strip In - 01/03/2006 3:02 AM [facility] [place] [address] [address], [place] [address] or November 01, 2002 Pedrito Gutierrez M.D. [facility] [address] [place] [id number] RE: BELIDNA MEEHAN MR #: [id number] Dear Dr. Gutierrez: Belinda was seen in [...] be referred for bariatric surgery here at [facility]. We have several physicians who perform [...] Sincerely, Maurilio Estrada M.D. KRIS / SHARIF [id number] / [id number] / [id number] / Tdocumented in this encounter Plan of Treatment Not on filedocumented as of this encounter Visit Diagnoses Not on filedocumented in this encounter"
--- OUTSIDE RECORDS SUMMARY | ~2018-11-09 | XMS | Encounter Summary ---
Demographics + + + | Address | [address] | | | [place] [address] | + + + | Home Phone [...] Providers + +------+ + | Care Pit Crew Support Worker Name | Role | Phone [...] | | Center at [facility] | | endoscopy procedure | | | | Mychal Kovacs | | | | | | Mailcode: [place] | | | | | | [facility] and | | | | | | [place] [address] | | | | | | [place], [place] | | | | | | [address] | | | | | | [phone] | | | +--------+ + + + [...] en doscopy in the Gastro[facility]ology [facility] at [facility], see transcri bed report. Earnest Ward documented in this encount er Plan of Treatment + + +--------+ + + | Name | Type | Priori | Associated Diagnoses | Order Schedule | | | | ty | | | + + +--------+ + + | [facility]AG[facility], | Procedures | Routin [...]
--- OUTSIDE RECORDS SUMMARY | ~2018-11-09 | XMS | Encounter Summary ---
Demographics + + + | Address | [address] | | | [place] [address] | + + + | Home Phone [...] Providers + +------+ + | Care Cobbler Upper Name | Role | Phone | + +------+ + | Pedrito Gutierrez MD | PCP | | + +------+ + Encounter Details +--------+ + + + + | Date | Type | Department | Care Team | Description | +--------+ + + + + | 10/05/ | DELETED | Orthopaedics at | Ramon Ibarra, | CLINIC NOTES | | 2006 | TRANSCRIPTI | [facility] [address] | [address] [facility] | QUESTIONNAIRE | | | ON | Bethanie Mailcode: CH12A | [facility], [place] | | | | | [facility] | [address] | | | | | and Healing, | [phone] | | | | | Floor [place], [place] | | | | | | [address] | | | | | | [phone] | | | +--------+ + + + [...]
--- OUTSIDE RECORDS SUMMARY | ~2018-11-09 | XMS | Encounter Summary ---
Demographics + + + | Address | [address] | | | [place] [address] | + + + | Home Phone [...] | | Center [address] | MD Aomr[address] | | | | | Mychal Kovacs Mailcode: | [address] | | | | | [address] for | [place], [place] | | | | | Health and Healing, | [address] | | | | | 6th floor [place], | [phone] | | | | | [place] [address] | | | | | | [phone] | | | +--------+ + + + [...]
--- OUTSIDE RECORDS SUMMARY | ~2018-11-09 | XMS | Encounter Summary ---
Demographics + + + | Address | [address] | | | [place] [address] | + + + | Home Phone [...] Team Providers + +------+ + | Care Silver Miner Blasting Name | Role | Phone | + [...] + + | 09/12/ | Telephone | [facility] | Miranda Lambert, | Medication | | 2009 | | Pain Center at | ANP | Adjustment (rec's | | | | [facility] | | for weaning due to | | | | [address] | | over use) | | | | Mail Code: CH15P | | | | | | [facility] | | | | | | and Healing, | | | | | | Floor [place], [place] | | | | | | [address] | | | | | | [phone] | | | +--------+ + + + [...]
--- OUTSIDE RECORDS SUMMARY | ~2018-11-09 | XMS | Encounter Summary ---
Demographics + + + | Address | [address] | | | [place] [address] | + + + | Home Phone [...] Team Providers + +------+ + | Care Futures Trader Name | Role | Phone | [...] [address] | | | | | [facility] | [place], [place] | | | | | [place] [address] | [address] | | | | | [facility] | [phone] | | | | | Road Physicians | | | | | | [facility] | | | | | | [facility] [place], | | | | | | [place] [address] | | | | | | [phone] | | | +--------+--------+ + + + [...]
--- OUTSIDE RECORDS SUMMARY | ~2018-11-09 | XMS | Encounter Summary ---
Demographics + + + | Address | [address] | | | [place] [address] | + + + | Home Phone [...] | [facility] | | | and Jairana [...] Team Providers + +------+ + | Care Felled Seam Operator Name | Role | Phone | [...] +--------+ + + + + + | Denied | Specialty | Gastroenterol | Diagnoses | Alisha | [facility] | | | Services | ogy / | Obesity | MD Luther | Nutrition | | | Required | Nutrition | (BMI | [address] | [address] | | | | | 30.0-34.9) | [address] | [address] | | | | | Nausea | [address] | [place], | | | | | Dumping | [place], | [place] [address] | | | | | syndrome | [place] [address] | Phone: | | | | | | Phone: | [phone] | | | | | | [phone] | Fax: | | | | | | Fax: | [phone] | | | | | | [phone] | | +--------+ + + + + [...] | Services | ogy | Nausea | Emmy-Cristin | MD Luther | | | Required | | | i, | [address] | | | | | | Sulaiman-Russell | [address] | | | | | | , [address] | [address] | | | | | | [address] | [place], | | | | | | [place], | [place] [address] | | | | | | [place] | Phone: | | | | | | [address] | [phone] | | | | | | Phone: | Fax: | | | | | | [phone] | [phone] | | | | | | Fax: | | | | | | | [phone] | | + + + + + + + Reason for Visit Evaluate & Treat (Routine) + + + [...] | Services | ogy | Nausea | Rene | MD Luther | | | Required | | | i, | [address] | | | | | | [place] | [address] | | | | | | , [address] | [address] | | | | | | [address] | [place], | | | | | | [place], | [place] [address] | | | | | | [place] | Phone: | | | | | | [address] | [phone] | | | | | | Phone: | Fax: | | | | | | [phone] | [phone] | | | | | | Fax: | | | | | | | [phone] | | + + + + + + + Encounter Details +--------+---------+ + + + | Date | Type | Department | Care Team | Description | +--------+---------+ + + + | 10/18/ | Office | [facility] | Alanis, | Obesity (BMI | | 2019 | Visit | GASTROENTEROLOGY | MD Petrona | 30.0-34.9) (Primary | | | | [address] | [address] [place] | Dx); Nausea; Dumping | | | | [address] [place], [place] | [place] [address] | syndrome; 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); | | | | [phone] | | Gastroesophageal | | | | | Luther Brito MD | reflux disease, | | | | | [address] | esophagitis presence | | | | | [address] [place] | not specified | | | | | [place] [address] | | | | | | [phone] | | | | | | | [...] + | Blood Pressure | 100/52 | 10/18/20181004 PDT | + + + + | Pulse | 68 | 10/18/20181004 PDT | + + + + | Temperature | 36.6 C (97.8 F) | 10/18/20181004 PDT | + + + + | Respiratory Rate | 16 | 10/18/20181004 PDT | + + + + | Oxygen Saturation | 98% | 10/18/20185 PDT | + + + + | Inhaled Oxygen | - | - | | Concentration | | | + + + + | Weight | 90.8 kg (200 lb 2.8 | 10/18/20185 PDT | | | oz) | | + + + + | Height | 172.7 cm (5' 8") | 10/18/2018 1005 PDT | + + + + | Body Mass Index | 30.44 | 10/18/2018 1005 PDT | + + + + documented in this encounter Progress Dixie Reyna RN - 10/18/2018 1030 PDTReferral to nutrition placed; if not approved will ask PCP to refer patient. P DTdocumented in this encounter Plan of [...] | | | | | [place] [address] | | | | | | [phone] | | | | | | | | +--------+---------+ + + + + +--------+ + + | Name | Priori | Associated Diagnoses | Order Schedule | | | ty | | | + +--------+ + + | Ambulatory referral to | Routin | Obesity (BMI | Expected: 10/18/2018 | | Gastroenterology | e | 30.0-34.9) Nausea | (Approximate), | | | | Dumping syndrome | Expires: 04/20/2019 | + +--------+ + + documented as [...]
--- OUTSIDE RECORDS SUMMARY | ~2018-11-09 | XMS | Encounter Summary ---
Demographics + + + | Address | [address] | | | [place] [address] | + + + | Home Phone [...] + + + | Author | [facility] | + + + | Organization | [facility] | + + + | [...] Providers + +------+ + | Care Awning Erector Name | Role | Phone | + +------+ + | Pedrito Gutierrez MD | PCP | | + +------+ + Encounter Details +--------+ + + + + | Date | Type | Department | Care Team | Description | +--------+ + + + + | 07/30/ | Office | [facility] 7th | Clinic, | Progress Note | | 2006 | Visit-Trans | Floor [address] | Endocrinology | | | | cribed | [facility] | | | | | | Mailcode: [facility] | | | | | | [place], [place] | | | | | | [address] | | | | | | [phone] | | | +--------+ + + + [...] as of this encounter Progress Notes Interface, Command And Control Specialist In - 09/16/2006 7:22 AM PDT [id number] GEOVANNI [place] [address] Clinic Date: 07/30/2006 Clinic: Endocrinology Subjective: Belinda [...] year. Beto Meeks M.D. PD / HS [id number] / [id number] / [id number] / [id number] cc: Joanna Arshad M.D. Jonathan Hitzman, M.D. [address] [place] [address] Electronically signed by Beto Meeks 09-15-2006 11:40:17 PM documented in this encounter Plan of Treatment Not on filedocumented as of this encounter Visit Diagnoses Not on filedocumented in this encounter"
--- OUTSIDE RECORDS SUMMARY | ~2018-11-09 | XMS | Encounter Summary ---
Demographics + + + | Address | [address] | | | [place] [address] | + + + | Home Phone [...] Team Providers + +------+ + | Care Surgery Aide Name | Role | Phone | [...] | | | | Clinical Nutrition | [place], [place] | | | | | [address] | [address] | | | | | [facility] | [phone] | | | | | Mailcode: OPC5 | | | | | | Outpatient Clinic | | | | | | [facility] | | | | | | [place] [address] | | | | | | [phone] | | | +--------+ + + + [...] + + + + + | [facility] | [address] | [place] [address] | | | LABORATORY | | | [...] | pg/mL | | | | | [place] [facility] [...] + + + + + | [facility] | [address] | [place] [address] | | | LABORATORY | | | [...] DEPARTMENT OF | [address] | [place] [address] | | | PATHOLOGY | [address] | | | + + + + + | [facility] DEPARTMENT OF | [address] | [place] [address] | | | PATHOLOGY | [address] [...] + | [facility] | [address] | [place] [address] | | | PATHOLOGY | [address] | | | + + + + + | [facility] | [facility] | [place] [address] | | | PATHOLOGY | [address] | | | + + + + + documented in this encounter Visit Diagnoses Not on filedocumented in this encounter"
--- OUTSIDE RECORDS SUMMARY | ~2018-11-09 | XMS | Encounter Summary ---
Demographics + + + | Address | [address] | | | [place] [address] | + + + | Home Phone [...] Team Providers + +------+ + | Care Case Management Director Name | Role | Phone [...] [address] | [address] [facility] | | | | | [facility] | [facility] | | | | | Mailcode: L223A | [place], [place] | | | | | Physicians [address] | [address] | | | | | [address] [place], | [phone] | | | | | [place] [address] | | | | | | [phone] | | | +--------+ + + + [...]
--- OUTSIDE RECORDS SUMMARY | ~2018-11-09 | XMS | Encounter Summary ---
Demographics + + + | Address | [address] | | | [place] [address] | + + + | Home Phone [...] Providers + +------+ + | Care Media Intern Name | Role | Phone | [...] of this encounter Progress Notes Interface, Paper Control Clerk In - 01/12/2005 6:32 AM PDTClinic Date: [...] improves, and the leg discomfort is actually outbound call center representative of restless legs. I have given [...] 4 months. Caitlin Rivera M.S., F.N.P. / [id number] / [id number] / [id number] / [id number] cc: Pedrito Gutierrez M.D. [address] [place], [place] [id number] signed by Interface, Paper Control Clerk In at 01/12/2005 6:3 2 AM PDTdocumented in this encounter Plan of Treatment Not on filedocumented as of this encounter Visit Diagnoses Not on filedocumented in this encounter"
--- OUTSIDE RECORDS SUMMARY | ~2018-11-09 | XMS | Encounter Summary ---
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 [place] | | syndrome 729.1 | | | | [address] | | | | | | [phone] | | | +--------+---------+ + + + [...] December 02, 2006 Patient: Belinda J Shefali, [id number], 1960 I agree with the proposed Physical Therapy Treatment Plan. Provider: DELFINA MOLINA ANP Nathalia Garrett - 007 11:16 AM PDT Physical Therapy Medicare Progress Note Date: 11/27/2006 Belinda Meehan [id number]. 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 director long term care goals: Improve gait so patient can ambulate with single based cane. Plan: Patient will return for f/u visit in 2 weeks and at that time will progress in core, hip, and knee strengthening regime. Treatment began: 1100 Treatment ended: 1200 Nathalia Arora, Physical Therapist License #[id number] documented in this encoun ter Plan of Treatment + + +--------+ + + | Name | Type | Priori | Associated Diagnoses | Order Schedule | | | | ty | | | + + +--------+ + + | [place] PHYS THERAPY | Procedures | Routin | [...]
--- OUTSIDE RECORDS SUMMARY | ~2018-11-09 | XMS | Encounter Summary ---
Demographics + + + | Address | [address] | | | [place] [address] | + + + | Home Phone [...] Providers + +------+ + | Care Compressor Stations Superintendent Name | Role | Phone | [...] | | deficiency | MD Carlos | [address] | | | | | Procedures | [address] | [facility] | | | | | CONSULT TO | [address] | Mailcode: | | | | | GI PROCEDURE | Rd | [address] | | | | | UNIT: SM | [place], [place] | [place] | | | | | B[address]EL | [address] | [address] | | | | | CAPSULE | Phone: | [place], | | | | | ENDOSCOPY | [phone] | [place] [address] | | | | | | | Phone: | | | | | | | [phone] | | | | | | | Fax: | | | | | | | [phone] | +--------+--------+ + + + + Consultation (Routine) +--------+--------+ + + + + | Status | Reason | Specialty | Diagnoses / | Referred By | Referred To | | | | | Procedures | Contact | Contact | +--------+--------+ + + + + | Closed | | Pain | Diagnoses | | Mirjemal, | | | | Management | Chronic | Elba | NIHARIKA Jean | | | | | abdominal | MD Carlos | [address] | | | | | pain | [address] | [address] | | | | | Procedures | [facility] | [place], [place] | | | | | CONSULT TO | Rd | [address] | | | | | PAIN CENTER | [place], [place] | | | | | | | [address] | | | | | | | Phone: | | | | | | | [phone] | | +--------+--------+ + + + + Encounter Details +--------+---------+ + + + | Date | Type | Department | Care Team | Description | +--------+---------+ + + + | 04/07/ | Office | [facility] Division of | Carlos Arreola, | Iron Deficiency; | | 2005 | Visit | Gastroenterology/Hep | MD Demetrio Eduardo | Chronic Abdominal | | | | atology [address] | Pain | | | | [address] | [place] [address] | | | | | Road Mailcode: | [phone] | | | | | [address] Physicians | | | | | | [address] | | | | | | [place], [place] | | | | | | [address] | | | | | | [phone] | | | +--------+---------+ + + + [...] 04/24/2006 7:[address] received from [facility] from 01/15/06 and 03/19/06 CT Scan abdomen. Unremarkable findings (pasted below). Also, UGI series from December reviewed and normal (past ed below). [facility] labs received and [...] HEPATIS NODES. Transcribed By: Armaan Rivera : [id number] : 1224 Approved By: CT ABDOMEN AND [...] HEPATIS NODES. Transcribed By: Armaan Mata : [id number] : 1224 Approved By: Carlos Benton - [...]
--- OUTSIDE RECORDS SUMMARY | ~2018-11-09 | XMS | Encounter Summary ---
Demographics + + + | Address | [address] | | | [place] [address] | + + + | Home Phone [...] Providers + +------+ + | Care Fire Extinguisher Repairer Inspector Name | Role | Phone | [...] | | | | Clinical Nutrition | [place], [place] | | | | | [address] | [address] | | | | | [facility] | [phone] | | | | | Mailcode: OPC5 | | | | | | Outpatient Clinic | | | | | | [facility] | | | | | | [place] [address] | | | | | | [phone] | | | +--------+ + + + [...] [facility] DEPARTMENT OF | [address] | [place] [address] | | | PATHOLOGY | [address] | | | + + + + + | [facility] DEPARTMENT OF | [address] | [place] [address] | | | PATHOLOGY | [address] [...] OF [place] | [address] | [place] [address] | | | PATHOLOGY | [address] | | | + + + + + | [facility] | [address] | [place] [address] | | | PATHOLOGY | [address] | | | + + + + + documented in this encounter Visit Diagnoses Not on filedocumented in this encounter"
--- OUTSIDE RECORDS SUMMARY | ~2018-11-09 | XMS | Encounter Summary ---
Demographics + + + | Address | [address] | | | [place] [address] [...] Providers + +------+ + | Care Automobile Club Information Clerk Name | Role | Phone | [...] | + +--------+ + + + | DE GI TRACT IMAGING, | | 05/12/2006 | | | | INTRALUMINAL | | | | | + +--------+ + + + documented in this encounter Visit Diagnoses Not on filedocumented in this encounter"
--- OUTSIDE RECORDS SUMMARY | ~2018-11-09 | XMS | Encounter Summary ---
Demographics + + + | Address | [address] | | | [place] [address] | + + + | Home Phone [...] Team Providers + +------+ + | Care Yarn Weigher Name | Role | Phone | [...] Closed | | Pain | Diagnoses | Petra, | Alin, | | | | Management | Depressive | NIHARIKA Jean | Lukasz Rhodes, PhD | | | | | disorder, | [address] | [address] | | | | | not | [address] | [address] | | | | | elsewhere | [place], [place] | [place], [place] | | | | | classified | [address] | [address] | | | | | Procedures | | Phone: | | | | | [place] | | [phone] | | | | | PSYCHOTHERPY | | Fax: | | | | | , OFFICE | | [phone] | | | | | (74-15) | | | +--------+--------+ + + + + Encounter Details +--------+---------+ + + + | Date | Type | Department | Care Team | Description | +--------+---------+ + + + | 07/15/ | Office | [facility] Center at [facility] | Lukasz Charles, | Major Depressive | | 2006 | Visit | 15th Floor [address] | PhD [address] | Disorder, Recurrent | | | | [address] Mail | Ave [place], [place] | Episode, Moderate | | | | Code: [facility] | [address] | ([facility]); Cervical | | | | for Health and | [phone] | Spondylosis without | | | | Healing, 15th Floor | | Myelopathy; Migraine | | | | [place], [place] | | Headache; | | | | [address] | | Adjustment Disorder | | | | [phone] | | with Anxiety | +--------+---------+ + [...] this encounter Progress Notes Lukasz Charles - 07/15/2006 3:17 PM PSTPROGRESS NOTE: Belinda Meehan is a 46 y.o. female with head, abdominal, back, and leg pain. She has had pain for many years and she is having difficulty coping with increasing and spreading pain. She has symptoms of depression and anxiety along with her pain. She reported no change in her situation but did state that she had had some increased pain. We discussed physiologic responses to pain and practiced slow diaphragmatic breathing and gentle shoulder rolls. We used biofeedback to confirm physical changes. Temperature of right hand increased from 88 degrees to 94 degrees. EMG of trapezius muscles decreased from 20 mv to 4-8 mv. She report ed feeling more relaxed. We discussed the need to practice and she was given written instru ctions for practice. We discussed activity level and she set a goal to increase walking. Ms. Meehan has depression and frustration. She may have some difficulty increasing her ac tivity level. She appears to have good insight. Diagnosis: Trego I: 1. (296.32) Major depressive disorder, recurrent, moderate. 2. (309.24) Adjustment disorder with anxiety. 3. 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 Trego II: Deferred Trego III: abdominal pain, migraine headache, low back pain. Trego IV: low finances Trego V: GAF 50 Plan: Return in 2 weeks. Check relaxation and activity. Check mood. Continue cognitive/behavio ral therapy. Total time spent with patient was approximately 50 minutes. LUKASZ CHARLES PHD [facility] [facility], [address] [place] [address] documented [facility] Plan of Treatment + + +--------+ + + | Name | Type | Priori | Associated Diagnoses | Order Schedule | | | | ty | | | + + +--------+ + + | [place] [facility], | Procedures | Routin | Major Depressive | Ordered: 07/15/2006 | | OFFICE (45-50) | | e | Disorder, Recurrent | | | | | | Episode, Moderate | | | | | | ([facility]) Cervical | | | | | | Spondylosis without | | | | | | Myelopathy Migraine | | | | | | Headache | | | | | | Adjustment Disorder | | | | | | with Anxiety | | + + +--------+ + + | [place] BIOFEEDBACK | Procedures | Routin | Cervical | Ordered: 07/15/2006 | | TRAINING,ANY | | e | Spondylosis without | | | MODALITY | | | Myelopathy Migraine | | | | | | Headache | | | | | | Adjustment Disorder | | | | | | with Anxiety | | + + +--------+ + + documented as of this encounter Visit Diagnoses + + | Diagnosis | + + | Major depressive disorder, recurrent episode, moderate (HCC) Major depressive | | disorder, recurrent episode, moderate | + + | Cervical spondylosis without myelopathy | + + | Migraine headache Migraine, unspecified, without mention of intractable migraine | | without mention of status migrainosus | + + | Adjustment disorder with anxiety | + + documented in this encounter"
--- OUTSIDE RECORDS SUMMARY | ~2018-11-09 | XMS | Encounter Summary ---
Demographics + + + | Address | [address] | | | [place] [address] | + + + | Home Phone [...] Team Providers + +------+ + | Care Heating Unit Installer Name | Role | Phone | [...] [address] | | | | | [place] [facility] | [place], [place] | | | | | [address] | [address] | | | | | [facility] | [phone] | | | | | Road Physicians | | | | | | [facility] | | | | | | [facility] [place], | | | | | | [place] [address] | | | | | | [phone] | | | +--------+--------+ + + + [...]
--- OUTSIDE RECORDS SUMMARY | ~2018-11-09 | XMS | Encounter Summary ---
Demographics + + + | Address | [address] | | | [place] [address] | + + + | Home Phone [...] + | Organization | [facility] | | | and Jairana | [...] Team Providers + +------+ + | Care Perioperative Tech Name | Role | Phone | [...] + + | Authorized | Specialty | Podiatry | Diagnoses | [...] | | | | phalanx of | [address] | [address] | | | | | left great | [place], | Phone: | | | | | toe, initial | [place] | [phone] | | | | | encounter | [address] | Fax: | | | | | | Phone: | [phone] | | | | | | [phone] | | | | | | | Fax: | | | | | | | [phone] | | + + + + + + + Encounter Details +--------+ + + + + | Date | Type | Department | Care Team | Description | +--------+ + + + + | 08/26/ | Orders Only | [facility] | Alanis, | Closed nondisplaced | | 2018 | | MEDICINE [address] | MD Petrona | fracture of proximal | | | | [address] [place] | [address] [place] | phalanx of left | | | | [facility] [place] [address] | [place] [address] | great toe, initial | | | | [phone] | [phone] | encounter (Primary | | | | [...] | | | | | [place] [address] | | | | | | [phone] | | | | | | | | +--------+---------+ + + + + +--------+ + + | Name | Priori | Associated Diagnoses | Order Schedule | | | ty | | | + +--------+ + + | Podiatry, External - AMB Referral | Routin | Closed | Ordered: 08/26/2018 | | | e | nondisplaced | | | | | fracture of proximal | | | | | phalanx of left | | | | | great toe, initial | | | | | encounter | | + +--------+ + + documented as of this encounter Visit Diagnoses + + | Diagnosis | + + | Closed nondisplaced fracture of proximal phalanx of left great toe, initial encounter | | - Primary | + + documented in this encounter"
--- OUTSIDE RECORDS SUMMARY | ~2018-11-09 | XMS | Encounter Summary ---
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 | | | | Therapy | Myalgia and | NIHARIKA Drake | [facility] [address] | | | | | myositis, | [address] | [address] | | | | | unspecified | [address] | Mailcode: | | | | | LBP (low | [place], [place] | [facility] | | | | | back pain) | [address] | for Health | | | | | Chronic | | and Healing | | | | | shoulder | | [place], [place] | | | | | pain Muscle | | [address] | | | | | strain | | Phone: | | | | | Radicular | | [phone] | | | | | pain in [...] | Management | Chronic | Taqueria Strong, SPECIALTY DEVELOPMENT CONSULTANT | Anali T, ANP | | | | | neck pain | [address] | [address] | | | | | Low back | AVE [place] | [address] | | | | | pain | [place], [place] | [place], [place] | | | | | | [address] | [address] | | | | | | Phone: | | | | | | | [phone] | | | | | | | Fax: | | | | | | | [phone] | | +--------+--------+ + + + + Encounter Details +--------+---------+ + + + | Date | Type | Department | Care Team | Description | +--------+---------+ + + + | 04/05/ | Office | [facility] Comprehensive | Anali Tillman, | LBP (low back pain) | | 2012 | Visit | Pain Center at | ANP | (Primary Dx); | | | | [facility] | | Fibromyalgia | | | | [address] | | syndrome 729.1; | | | | [facility] | Encounter for | | | | Center for Health | | Long-Term (Current) | | | | and Healing, | | Use of Opioids; | | | | Floor [place], [place] | | Chronic Bilateral | | | | [address] | | Shoulder Pain; | | | | [phone] | | Muscle Strain hips; | | [...] to discuss these treatment options. Consult to [facility] physical therapy: A supervised physical therapy [...] you have questions or concerns. ANALI TILLMAN, [facility] [address] Mail Code: [place] [address] documented in this encounter Progress Notes Anali Tillman ANP - 04/05/2013 9:28 AM PDTFormatting of this note might be different fro m the original. [facility] Office Visit 04/05/2013 Belinda Meehan; ; : 1960 Ms. Meehan was referred for pain management consultation by Taqueria Raman NP [address] [place] [address] Chief Complaint Patient presents with New patient consultation Whole Body Pain History of Present Illness: Belnida Meehan is a 49 y.o. year-old female [...] to taper off gabapentin 2. Order for [facility] neurology Dr. Taniya Guerrero if falls [...] steroid injections by Dr. 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) made gut pain worse 08/27/06: Trial [...] levels. As part of today's visit the [facility] new patient questionnaire was review [...] you expect from your visits to the [facility] ? Don't know BP 127/59 [...] Overview Note: Surgery 05/15/08 Dr Ricky Garnett [facility] karlos to get operative reports Osteopenia 08/24/2007 [...] before her lumbar surgeries and recently in [place]. She has short-term relief from the se treatments. I would like her to return to see Dr. Murali Montero to discuss these treatment options. Consult to [facility] physical therapy: A supervised physical therapy [...] of which more than 50% was spent rhnul-eo-mzlj in revie wing pain questionnaire, medical record, consultation, discussion, addressing questions and counselling/education. [facility] [address] Mail Code: [place] [address] aris Riley MA - 04/05/2013 [...]
--- OUTSIDE RECORDS SUMMARY | ~2018-11-09 | XMS | Encounter Summary ---
Demographics + + + | Address | [address] | | | [place] [address] | + + + | Home Phone [...] Providers + +------+ + | Care Application Engineer Name | Role | Phone [...] as of this encounter Progress Notes Interface, Architectural Draftsman In - 12/07/2005 3:08 AM [facility] [place] [address] [place], [place] [address] or January 31, 2003 Pedrito Gutierrez M.D. [address] [place] [address] RE: BELINDA MEEHAN MR #: [id number] Dear Dr. Gutierrez: I had the pleasure [...] She had surgery 5 days ago in [place] on her right hand and wrist, for [...] time to help minimize her travel to [place]. In the meantime, please feel free to contact me if you have other questions, concerns, or suggestions regarding her condition. Sincerely, Issac Meeks M.D. home assessment nurse Division of Endocrinology, Diabetes, and Clinical Nutrition, Director of Metabolic Disorders Clinic MONIQUE / SHARIF [id number] / [id number] / [id number] / Tdocumented in this encounter Plan of Treatment Not on filedocumented as of this encounter Visit Diagnoses Not on filedocumented in this encounter"
--- OUTSIDE RECORDS SUMMARY | ~2018-11-09 | XMS | Encounter Summary ---
Demographics + + + | Address | [address] | | | [place] [address] | + + + | Home Phone [...] Providers + +------+ + | Care Nursing Educator Name | Role | Phone | + [...] | | | [facility] | [place], [place] | | | | | [address] | [address] | | | | | [address] | [phone] | | | | | Road Mailcode: | | | | | | [id number] Physicians | | | | | | [place], | | | | | | [place] [address] | | | | | | [phone] | | | +--------+ + + + [...]
--- OUTSIDE RECORDS SUMMARY | ~2018-11-09 | XMS | Encounter Summary ---
Demographics + + + | Address | [address] | | | [place] [address] | + + + | Home Phone [...] Team Providers + +------+ + | Care Popped Corn Oven Attendant Name | Role | Phone | [...] | | | | [address] | [facility] | | | | | Mailcode: Center | [place] [address] | | | | | for Health and | [phone] | | | | | Healing, [address] | | | | | | [place], [place] | | | | | | [address] | | | | | | [phone] | | | +--------+ + + + [...]
--- OUTSIDE RECORDS SUMMARY | ~2018-11-09 | XMS | Encounter Summary ---
Demographics + + + | Address | [address] | | | [place] [address] | + + + | Home Phone [...] Team Providers + +------+ + | Care Presidential Support Specialist Name | Role | Phone [...] [address] | [address] [facility] | | | | | [facility] | [facility] | | | | | Mailcode: L223A | [place], [place] | | | | | Physicians [address] | [address] | | | | | [address] [place], | [phone] | | | | | [place] [address] | | | | | | [phone] | | | +--------+ + + + [...]
--- OUTSIDE RECORDS SUMMARY | ~2018-11-09 | XMS | Encounter Summary ---
Demographics + + + | Address | [address] | | | [place] [address] | + + + | Home Phone [...] Providers + +------+ + | Care Pharmacy Benefit Manager Name | Role | Phone | [...] | teaching, guidance, | | | | [address] | | and counseling | | | | Mailcode: PV430 | | | | | | [facility] | | | | | | [place], [place] | | | | | | [address] | | | | | | [phone] | | | +--------+ + + + [...]
--- OUTSIDE RECORDS SUMMARY | ~2018-11-09 | XMS | Encounter Summary ---
Demographics + + + | Address | [address] | | | [place] [address] | + + + | Home Phone [...] Team Providers + +------+ + | Care Durable Medical Equipment Technician Name | Role | Phone [...] (has been | | 2007 | | Center [address] | [address] | in the bathroom | | | | [address] Mailcode: | [address] | since one this | | | | [address] for | [place], [place] | morning with | | | | Health and [facility], | [address] | IBS/dumping syndrome | | | | 6th floor [place], | [phone] | symptoms) | | | | [place] [address] | | | | | | [phone] | | | +--------+ + + + [...]
--- OUTSIDE RECORDS SUMMARY | ~2018-11-09 | XMS | Encounter Summary ---
Demographics + + + | Address | [address] | | | [place] [address] | + + + | Home Phone [...] Providers + +------+ + | Care Resource Development Manager Name | Role | Phone [...] of this encounter Progress Notes Interface, Locomotive Boilermaker In - 01/12/2005 9:01 AM PDT [id number] GEOVANNI [facility] Date: 05/20/2004 Clinic: Morbid [...] Surgery Chris Padgett M.D. MS / HS [id number] / [id number] / [id number] / [id number] documented i n this encounter Plan of Treatment Not on filedocumented as of this encounter Visit Diagnoses Not on filedocumented in this encounter"
--- OUTSIDE RECORDS SUMMARY | ~2018-11-09 | XMS | Encounter Summary ---
Demographics + + + | Address | [address] | | | [place] [address] | + + + | Home Phone [...] Providers + +------+ + | Care Solutions Operator Name | Role | Phone | [...] 12/04/ | Office | Pain Center at [facility] | Lukasz Charles, | Major Depressive | | 2006 | Visit | 15th Floor [address] | PhD [address] | Disorder, Recurrent | | | | [address] Mail | Ave [place], [place] | Episode, Moderate | | | | Code: [facility] Center | [address] | ([facility]); Spondylosis | | | | for Health and | [phone] | with Myelopathy, | | | | Healing, 15th Floor | | Lumbar Region; Left | | | | [place], [place] | | Knee Pain; | | | | [address] | | Adjustment Disorder | | | | [phone] | | with Anxiety; Other | | [...] is optimistic about her knee surgery. Diagnosis: Holland I: 1. (296.32) Major depressive disorder, recurrent, moderate. 2. (309.24) Adjustment disorder with anxiety. 3. 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 Holland II: Deferred Holland III: abdominal pain, migraine headache, low back pain. Holland IV: low finances Holland V: GAF 55-60 Plan: Return in 3 months. Check mood, knee surgery, pacing, relaxation, activity, distraction. Continue cognitive/behavioral therapy. Discuss need for further sessions. Total time spent with patient was approximately 45 minutes. LUKASZ CHARLES PHD [facility] [address] [facility], [address]th [place] [address] documented in this encount er Plan of [...]
--- OUTSIDE RECORDS SUMMARY | ~2018-11-09 | XMS | Encounter Summary ---
Demographics + + + | Address | [address] | | | [place] [address] | + + + | Home Phone [...] Team Providers + +------+ + | Care Stereo Compiler Name | Role | Phone | [...] as of this encounter Progress Notes Interface, Instrumentation Supervisor In - 01/11/2005 6:26 PM PDT Referred [...] blindness. History was obtained from the patient, [facility] medical records, and two magnetic resonance [...] any point. She has been seen her graphic specialist in [facility], Dr. Lc Renteria, who by her report [...] and fibromyalgia. SOCIAL HISTORY: Patient lives in [facility] with her eldest son. She supports herself [...] acute distress. She does have a right-sided Bolivian crutch which she uses to enter and [...] biceps, triceps, wrist extensors, finger extensors, hand cardiovascular rn, hip flexors and extensors, and ankle, plantar, and dorsiflexors as well as knee flexors and extensors. There is no pronator drift. Reflexes are 2+ and symmetrical at the biceps, triceps, brachioradialis, patellar, and ankle regions. Toes are downgoing to plantar stimulation. Light touch and tuning fork is within normal limits in the lower extremities. Fcipon-go-vhim and fine finger movements are within normal [...] Amin M.D., Neurophthalmology cc: CRYSTAL CARTER M.D. [facility] [address] [facility]. [facility] [id number] signed by Interface, Instrumentation Supervisor In at 2004 6:26 PM PDTdocumented in this encounter Plan of Treatment Not on filedocumented as of this encounter Visit Diagnoses Not on filedocumented in this encounter"
--- OUTSIDE RECORDS SUMMARY | ~2018-11-09 | XMS | Encounter Summary ---
Demographics + + + | Address | [address] | | | [place] [address] | + + + | Home Phone [...] Providers + +------+ + | Care Kitchen Aide Name | Role | Phone | [...] 12/04/ | Office | [facility] Center at [facility] | Lukasz Charles, | Major Depressive | | 2006 | Visit | 15th Floor [address] | PhD [address] | Disorder, Recurrent | | | | [address] Mail | Ave [place], [place] | Episode, Moderate | | | | Code: [facility] Center | [address] | ([facility]); Spondylosis | | | | for Health and | [phone] | with Myelopathy, | | | | Healing, 15th Floor | | Lumbar Region; Left | | | | [place], [place] | | Knee Pain; | | | | [address] | | Adjustment Disorder | | | | [phone] | | with Anxiety; Other | | [...] is optimistic about her knee surgery. Diagnosis: Houston I: 1. (296.32) Major depressive disorder, recurrent, moderate. 2. (309.24) Adjustment disorder with anxiety. 3. 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 Houston II: Deferred Houston III: abdominal pain, migraine headache, low back pain. Houston IV: low finances Houston V: GAF 55-60 Plan: Return in 3 months. Check mood, knee surgery, pacing, relaxation, activity, distraction. Continue cognitive/behavioral therapy. Discuss need for further sessions. Total time spent with patient was approximately 45 minutes. LUKASZ CHARLES PHD [facility] [address] [facility], 4th [place] [address] documented in this encount er Plan of [...]
--- OUTSIDE RECORDS SUMMARY | ~2018-11-09 | XMS | Encounter Summary ---
Demographics + + + | Address | [address] | | | [place] [address] | + + + | Home Phone [...] Providers + +------+ + | Care Rn Forensic Name | Role | Phone | + +------+ + | Sulaiman Carrera MD | PCP | Unavailable | + +------+ + Encounter Details +--------+ + + + + | Date | Type | Department | Care Team | Description | +--------+ + + + + | 04/20/ | Documentati | [facility] | Rosi Antonio, | | | 2012 | on | Pain Center at | ANP | | | | | [facility] | | | | | | [address] | | | | | | Mail Code: CH15 | | | | | | [place] for Health | | | | | | and Healing,15 | | | | | | Floor [place], [place] | | | | | | [address] | | | | | | [phone] | | | +--------+ + + + [...] evidence of neural impingement. 3. Small disc | | | / osteophyte complex at T12-L1, stable. | | [...]
--- OUTSIDE RECORDS SUMMARY | ~2018-11-09 | XMS | Encounter Summary ---
Demographics + + + | Address | [address] | | | [place] [address] | + + + | Home Phone [...] Providers + +------+ + | Care Pattern Grader Name | Role | Phone | [...] Only | [facility] | [address] | | | | | [facility] | [place], [place] | | | | | Sharmila [facility] [address] | [address] | | | | | [address] [place] | [phone] | | | | | Road Mailcode: | | | | | | [id number] [facility] | | | | | | [place]armila [place], | | | | | | [place] [address] | | | | | | [phone] | | | +--------+ + + + [...] mIU/mL | | | | | [facility] | | | | | | Normals: | | | | | | | | | | | | Males: <1 | | | | | | 8 | | | | | | Females | | | | | | Follicular: 2- | | | | | | 12 | | | | | | Mid-cycle: 3-33 | | | | | | | | | | | | Luteal: 2-12 | | | | | | | | | | | | Post.belle: >20 | | | | | | Test performed by | | | | | | [facility] | | | | | | [facility]. | | | | + + + + + + + + | Specimen | + + | | + + + + + + + | Performing | Address | City/State/Zipcode | Phone Number | | Organization | | | | + + + + + | [facility] | [address] | [place] [address] | | | LABORATORY | | | [...] | pg/mL | | | | | [facility] | | | | | | Laboratory. | | | | + + + + + + + + | Specimen | + + | | + + + + + + + | Performing | Address | City/State/Zipcode | Phone Number | | Organization | | | | + + + + + | [facility] | [address] | [place] [address] | | | LABORATORY | | | [...] | + + + + + | [facility] | [address] | [place] [address] | | | PATHOLOGY | [address] | | | + + + + + | [facility] | [address] | [place] [address] | | | PATHOLOGY | [address] | | | + + + + + documented in this encounter Visit Diagnoses Not on filedocumented in this encounter"
--- OUTSIDE RECORDS SUMMARY | ~2018-11-09 | XMS | Encounter Summary ---
Demographics + + + | Address | [address] | | | [place] [address] | + + + | Home Phone [...] [address] | | | | | [facility] | [address] | | | | | Mailcode: L223A | [place], [place] | | | | | Physicians [address]ila | [address] | | | | | [address] [place], | [phone] | | | | | [place] [address] | | | | | | [phone] | | | +--------+ + + + [...] DEPARTMENT OF | [address] | [place] [address] | | | PATHOLOGY | [address] | | | + + + + + | [facility] DEPARTMENT OF | [address] | [place] [address] | | | PATHOLOGY | [address] [...] + + + | [facility] | [address] [facility] | [place] [address] | | | PATHOLOGY | [address] | | | + + + + + | [facility] | [address] [facility] | [place] [address] | | | PATHOLOGY | [address] | | | + + + + + documented in this encounter Visit Diagnoses Not on filedocumented in this encounter"
--- OUTSIDE RECORDS SUMMARY | ~2018-11-09 | XMS | Encounter Summary ---
Demographics + + + | Address | [address] | | | [place] [address] | + + + | Home Phone [...] + | Organization | [facility] | | | and [...] Providers + +------+ + | Care Die Assembler Name | Role | Phone | [...] + + | 08/14/ | Refill | [facility] | Alanis, | Medication Refill | | 2018 | | MEDICINE [address] [place] [address] | MD Petrona | | | | | [facility] | [address] [place] [address] | | | | | [place] [address] | [place] [address] | | | | | [phone] | [phone] | | | | | | | [...] | | | | | [place] [address] | | | | | | [phone] | | | | | | | | +--------+---------+ + + + documented as of this encounter Visit Diagnoses Not on filedocumented in this encounter"
--- OUTSIDE RECORDS SUMMARY | ~2018-11-09 | XMS | Encounter Summary ---
Demographics + + + | Address | [address] | | | [place] [address] | + + + | Home Phone [...] Providers + +------+ + | Care Custom Car Builder Name | Role | Phone | [...] | | | Road Mailcode: | [place] [address] | | | | | [address] [facility] | [phone] | | | | | [place], | | | | | | [place] [address] | | | | | | [phone] | | | +--------+ + + + [...]
--- OUTSIDE RECORDS SUMMARY | ~2018-11-09 | XMS | Encounter Summary ---
Demographics + + + | Address | [address] | | | [place] [address] | + + + | Home Phone [...] Providers + +------+ + | Care News Camera Person Name | Role | Phone | [...] as of this encounter Progress Notes Interface, Dermatology Physician Assistant In - 12/11/2005 2:05 AM PDT [id number] GEOVANNI SKELTON J [id number] Clinic Date: 11/27/2005 Clinic: Rheumatology Primary Care [...] 6 months. Caitlin Rivera M.S., F.N.P. / [id number] / [id number] / [id number] / [id number] cc: Pedrito Gutierrez M.D. [address] [place] [id number] Electronically signed by Caitlin Rivera 12-10-2005 09:27:21 AM documented i n this encounter Plan of Treatment Not on filedocumented as of this encounter Visit Diagnoses Not on filedocumented in this encounter"
--- OUTSIDE RECORDS SUMMARY | ~2018-11-09 | XMS | Encounter Summary ---
Demographics + + + | Address | [address] | | | [place] [address] | + + + | Home Phone [...] Team Providers + +------+ + | Care Halal Butcher Name | Role | Phone | [...] | | | [facility] | [place], [place] | | | | | [address] | [address] | | | | | [facility] | [phone] | | | | | Road Mailcode: | | | | | | [id number] Physicians | | | | | | Sharmila [facility] | | | | | | [place] [address] | | | | | | [phone] | | | +--------+ + + + [...]
--- OUTSIDE RECORDS SUMMARY | ~2018-11-09 | XMS | Encounter Summary ---
Demographics + + + | Address | [address] | | | [place] [address] | + + + | Home Phone [...] | Organization | [facility] | | | and Jairana [...] Providers + +------+ + | Care Manager Case Management Name | Role | Phone | + +------+ + | Petrona Thapa | PCP | | | MD | | | + +------+ + Encounter Details +--------+ + + + + | Date | Type | Department | Care Team | Description | +--------+ + + + + | 09/06/ | Abstract | [facility] | Provider, | | | 2019 | | GASTROENTEROLOGY | MD [address] | | | | | [address] [facility] | Sulma Boyd | | | | | [address] [place] | [place] [address] | | | | | [address] | | | | | | [phone] | | | +--------+ + + + [...] CECE | | | | | | [place] [address] | | | | | | [phone] | | | | | | | [...]
--- OUTSIDE RECORDS SUMMARY | ~2018-11-09 | XMS | Encounter Summary ---
Demographics + + + | Address | [address] | | | [place] [address] | + + + | Home Phone [...] Team Providers + +------+ + | Care Balance Recesser Name | Role | Phone | + [...] | Procedures | [address] | [facility] | | | | | CONSULT TO | [address] | Mailcode: | | | | | GI PROCEDURE | Rd | [address] | | | | | UNIT: SM | [place], [place] | [address] | | | | | [address] | [address] | [address] | | | | | CAPSULE | Phone: | [place], | | | | | ENDOSCOPY | [phone] | [place] [address] | | | | | | | Phone: | | | | | | | [phone] | | | | | | | Fax: | | | | | | | [phone] | +--------+--------+ + + + + Consultation [...] | | | | | Procedures | [facility] | [place], [place] | | | | | CONSULT TO | Rd | [address] | | | | | PAIN CENTER | [place], [place] | | | | | | | [address] | | | | | | | Phone: | | | | | | | [phone] | | +--------+--------+ + + + + Encounter Details +--------+---------+ + + + | Date | Type | Department | Care Team | Description | +--------+---------+ + + + | 04/07/ | Office | [facility] Division of | Carlos Arreola, | Iron Deficiency; | | 2005 | Visit | Gastroenterology/Hep | MD Demetrio Eduardo | Chronic Abdominal | | | | atology [address] | Pain | | | | [address] | [place] [address] | | | | | Road Mailcode: | [phone] | | | | | [address] [facility] | | | | | | [address] | | | | | | [place], [place] | | | | | | [address] | | | | | | [phone] | | | +--------+---------+ + + + [...] December reviewed and normal (past ed below). [facility] labs received and reviewed: neg O&P [...] HEPATIS NODES. Transcribed By: Armaan Rivera : [id number] : 1224 Approved By: CT ABDOMEN AND [...] HEPATIS NODES. Transcribed By: Armaan Mata : [id number] : 1224 Approved By: Carlos Benton - [...] Exam: vs as above no exam Imp: KP Chronic Pain in setting of letitia-en-y bypass [...]
--- OUTSIDE RECORDS SUMMARY | ~2018-11-09 | XMS | Encounter Summary ---
Demographics + + + | Address | [address] | | | [place] [address] | + + + | Home Phone [...] Team Providers + +------+ + | Care Ward Maid Name | Role | Phone | [...] + + | 03/14/ | Office | [facility] | Rileyjemal Delfina, | Spondylosis with | | 2006 | [...] (Degenerative Joint | | | | Floor [place], [place] | | Disease) of Left | | | | [address] | | Knee; Right shoulder | | | | [phone] | | rotator cuff | | | [...] previous 6 days. 2. May continue with Cameron NTE 4 per day as prescribed 3. [...] Meehan is a 46 y.o. female [facility] Return Visit Chief Complaint: Chief Complaint Patient presents with Pain History of Present Illness: Belinda Meehan is a 46 y.o. year-old female with a history of chronic pain due to degenerative spine disease, abdominal pain, fibromyalgia and right rot ator cuff injury. Belinda reports pain in her left knee and having seen Dr. Morales in orth opedics at [facility], she reports that surgery is not an [...] swelling has resolved. Belinda has been using Cameron 10/325 an average of 5 tablets per day. 1 tablet has an effecti ve duration of 5 hours "pain breaks through at about 4 hours", she reports taking a Cameron ev eduardo 5 hours. She denies any [...] Collection Time Resulting Agency 07/30/2006 4:00 PM [facility] DEPARTMENT OF PATHOLOGY Component Results Component Value [...] previous 6 days. 2. May continue with Cameron NTE 4 per day as prescribed 3. Continue with PT and Psychology as scheduled. 4. Continue with Trileptal 150mg 1 1/2 tablet twice a day 5. Follow up to review medications on 09/09/06 and call with any concerns or questions. DELFINA MOLINA [facility] Mail code CH 4P [facility] and [address] [address] Ailyn Foster - 08/27/19 9:09 [...] medication refills today? yes [facility] Plan of Treatment Not on filedocumented [...]
--- OUTSIDE RECORDS SUMMARY | ~2018-11-09 | XMS | Encounter Summary ---
Demographics + + + | Address | [address] | | | [place] [address] | + + + | Home Phone [...] | Organization | [facility] | | | and [...] + + | 09/15/ | Office | [facility] | Alanis, | Pain in right lower | | 2019 | Visit | MEDICINE [address] | MD Petrona | leg (Primary Dx); | | | | [address] [place] | [address] [facility] | Fall in bathtub, | | | | [place] [address] | [place] [address] | initial encounter; | | | | [phone] | [phone] | Other osteoporosis | | | | [...] + | Blood Pressure | 114/78 | 09/15/20181011 PDT | + + + + | Pulse | 64 | 09/15/20181011 PDT | + + + + | Temperature | 36.7 C (98.1 F) | 09/15/20181011 PDT | + + + + | Respiratory Rate | 16 | 09/15/20181011 PDT | + + + + | Oxygen Saturation | 96% | 09/15/20181011 PDT | + + + + | Inhaled Oxygen | - | - | | Concentration | | | + + + + | Weight | 91.2 kg (201 lb 1 | 09/15/2018 1012 PDT | | | oz) | | + + + + | Height | 172.7 cm (5' 8") | 09/15/2018 1012 PDT | + + + + | Body Mass Index | 30.57 | 09/15/2018 1012 PDT | + + + + documented in this encounter Progress Notes Maggie Montoya LPN - 09/15/2018 1030 PDT Administrations This Visit cyanocobalamin (VITAMIN B-12) injection 1,000 mcg Admin Date 09/15/2018 Action Given Dose 1000 mcg Route Intramuscular Administered By Maggie Montoya LPN Vitamin B12 1000mcg given IM left deltoid. Patient tolerated injection well. Oz Johnston MD - 09/15/2018 1030 PDT CHIEF COMPLAINT Chief Complaint Patient presents with [...] Common migraine COPD (chronic obstructive pulmonary disease) ([facility] [...] Myalgia Nausea Nonalcoholic hepatosteatosis Obesity Opioid dependence ([facility]) Orthostatic hypotension OLIVER (obstructive sleep apnea) Osteoarthritis, generalized Osteopenia Osteoporosis Palpitations Peripheral neuropathy Rheumatoid arthritis ([facility] [...] Procedure: COLONOSCOPY; Surgeon: Luther Brito MD; Location: [facility] DILATION AND CURETTAGE OF UTERUS ELBOW SURGERY FINGER TRIGGER RELEASE 2003 FINGER TRIGGER RELEASE 2010 GASTRIC BYPASS SURGERY 2004 HYSTERECTOMY 05/14/1980 JOINT REPLACEMENT Bilateral 2007 2008 KNEE ARTHROSCOPY 2005 LAPAROSCOPY 01/27/2015 LAPAROTOMY 2008 ROTATOR CUFF REPAIR 2005 SPINE SURGERY TONSILLECTOMY 1964 UPPER GASTROINTESTINAL ENDOSCOPY N/A 12/18/2017 Procedure: EGD; Surgeon: Luther Brito MD; Location: [facility] MEDICAL PROCEDURE UNIT CURRENT MEDICATIONS Current [...] ours as needed for Pain. Incontinence Supplies [facility] As directed 100 each 11 levothyroxine (SYNTHROID) [...] (See Comments) Confused and questionable for seizures Lxijdgdddc-Ulxo-Xwmrzyuf Hives and Rash Cephalexin Hives Ciprofloxacin Hives [...] Note: Parts of this documentwere created using [employer] speech recognition software. As a r esult, there may be unintended word spelling errors. Every attempt was made to correct the dictation. documented i n this encounter Plan of Treatment +--------+---------+ + + + | Date | Type | Specialty | Care Team | Description | +--------+---------+ + + + | 11/15/ | Office | Internal Medicine | EmmyHeikeJeffdolly, | | | 2018 | Visit | | MD Petrona | | | | | | Karla [place] [place] | | | | | | [place] [address] | | | | | | [phone] | | | | | | | | +--------+---------+ + + + documented as of this encounter Results XR Tibia Fibula Right 2 Vw (09/15/2018 11:41 PDT) + + | Specimen | + [...] - No acute osseous abnormality. Diffuse subcutaneous | | | soft tissue swelling. Dictated and Signed by: Romeo John | | | Electronically signed: 09/15/2018 12:28 PM | | + + + + + | Procedure Note | + + | Tawanda, Rad Results In - 09/15/2018 1231 PDT CLINICAL INFORMATION: R lower leg pain [...] | cyanocobalamin (VITAMIN B-12) | Given | 09/16/19 | 1,000 | | Deltoid- | | injection 1,000 mcg 1,000 mcg, | | 19 11:21 | mcg | | Left | | Intramuscular, EVERY 30 DAYS, | | PDT | | | | | First dose on [facility] 10/15/17 at 1215 | | | | | | + +--------+ +--------+------+ + +-------+ +--------+---+ + | Given | 06/17/19 | 1,000 | | Deltoid- | | | 19 11:32 | mcg | | Right | | | PST | | | | +-------+ +--------+---+ + | Given | 05/17/20 | 1,000 | | Deltoid- | | | 18 11:02 | mcg | | Left | | | PST | | | | +-------+ +--------+---+ + +---+---+ | | | +---+---+ documented in this encounter
--- OUTSIDE RECORDS SUMMARY | ~2018-11-09 | XMS | Encounter Summary ---
Demographics + + + | Address | [address] | | | [place] [address] | + + + | Home Phone [...] Team Providers + +------+ + | Care Crochet Machine Operator Name | Role | Phone [...] | | | [facility] | [place], [place] | | | | | [facility] [address] | [address] | | | | | [address] [place] | [phone] | | | | | Road Mailcode: | | | | | | [id number] Physicians | | | | | | [place], | | | | | | [place] [address] | | | | | | [phone] | | | +--------+ + + + [...] by | | | | | | [facility] | | | | | | [facility] Laboratory. | | | | + + + + + + + + | Specimen | + + | | + + + + + + + | Performing | Address | City/State/Zipcode | Phone Number | | Organization | | | | + + + + + | [facility] | [address] | [place] [address] | | | LABORATORY | | | [...] | pg/mL | | | | | [facility] | | | | | | Laboratory. | | | | + + + + + + + + | Specimen | + + | | + + + + + + + | Performing | Address | City/State/Zipcode | Phone Number | | Organization | | | | + + + + + | [facility] | [address] | [place] [address] | | | LABORATORY | | | [...] | [facility] | [address] | [place] [address] | | | PATHOLOGY | [address] | | | + + + + + | [facility] | [address] | [place] [address] | | | PATHOLOGY | [address] | | | + + + + + documented in this encounter Visit Diagnoses Not on filedocumented in this encounter"
--- OUTSIDE RECORDS SUMMARY | ~2018-11-09 | XMS | Encounter Summary ---
Demographics + + + | Address | [address] | | | [place] [address] | + + + | Home Phone [...] Team Providers + +------+ + | Care Shale Miner Name | Role | Phone | + [...] as of this encounter Progress Notes Interface, Shoes Hand Sewer In - 08/30/2005 2:07 AM PST [id number] [facility] Date: 08/11/2005 Clinic: Colorectal [...] Rebekah Navas M.D. Chris Padgett M.D. / [id number] / [id number] / [id number] / [id number] E: 08/14/2005 [email or web address] cc: Dr. Sarah [place], [place] Electronically signed by Chris Padgett 08-29-2005 03:28:30 PM documented i n this encounter Plan of Treatment Not on filedocumented as of this encounter Visit Diagnoses Not on filedocumented in this encounter"
--- OUTSIDE RECORDS SUMMARY | ~2018-11-09 | XMS | Encounter Summary ---
Demographics + + + | Address | [address] | | | [place] [address] | + + + | Home Phone [...] Providers + +------+ + | Care Rail Switchman Name | Role | Phone | + [...] + + | 03/28/ | Documentati | [facility] | Rosi Antonio, | Erroneous Encounter | | 2012 | on | Pain Center at | ANP | - Disregard | | | | [facility] | | | | | | [address] | | | | | | Mail Code: CH15P | | | | | | [facility] | | | | | | and | | | | | | Floor [place], [place] | | | | | | [address] | | | | | | [phone] | | | +--------+ + + + [...]
--- OUTSIDE RECORDS SUMMARY | ~2018-11-09 | XMS | Encounter Summary ---
Demographics + + + | Address | [address] | | | [place] [address] | + + + | Home Phone [...] Providers + +------+ + | Care Market Development Executive Name | Role | Phone | [...] [address] | [address] | | | | | [facility] | [address] | | | | | Mailcode: L223A | [place], [place] | | | | | Physicians Sharmila | [address] | | | | | [address] [place], | [phone] | | | | | [place] [address] | | | | | | [phone] | | | +--------+ + + + [...] DEPARTMENT OF | [address] | [place] [address] | | | PATHOLOGY | [address] | | | + + + + + | [facility] DEPARTMENT OF | [address] | [place] [address] | | | PATHOLOGY | [address] [...] + + + | [facility] DEPARTMENT OF | [address] | [place] [address] | | | PATHOLOGY | [address] | | | + + + + + | [facility] DEPARTMENT OF | [address] | [place] [address] | | | PATHOLOGY | [address] [...] At | + + + | SPEC FRANCISCO J 11-25-03 @ 0700 | [facility] | | | DEPARTMENT OF | | | PATHOLOGY | + + + + + + + + | Performing | Address | City/State/Zipcode | Phone Number | | Organization | | | | + + + + + | [facility] DEPARTMENT OF | [address] | [place] [address] | | | PATHOLOGY | [address] | | | + + + + + | [facility] DEPARTMENT OF | [address] | [place] [address] | | | PATHOLOGY | [address] [...] | | | | | no pleural | | | | | | effusion. There is a | | | | | | large amount ofoverlying | | | | | [...] + + + | [facility] DEPARTMENT OF | [address] | [place] [address] | | | PATHOLOGY | [address] | | | + + + + + | [facility] DEPARTMENT OF | [address] [facility] | [place] [address] | | | PATHOLOGY | [address] [...] + + + | [facility] DEPARTMENT OF | [address] | [place] [address] | | | PATHOLOGY | [address] | | | + + + + + | [facility] DEPARTMENT OF | [address] | [place] [address] | | | PATHOLOGY | [address] | | | + + + + + documented in this encounter Visit Diagnoses Not on filedocumented in this encounter"
--- OUTSIDE RECORDS SUMMARY | ~2018-11-09 | XMS | Encounter Summary ---
Demographics + + + | Address | [address] | | | [place] [address] | + + + | Home Phone [...] Team Providers + +------+ + | Care Spin Instructor Name | Role | Phone | [...] | Visit | Rheumatology [address] | SAMPLE MAKER | Fibromyalgia; | | | | [address] | | Fibromyalgia | | | | Road Mailcode: OPC5 | | | | | | Outpatient Clinic | | | | | | [facility], | | | | | | [place] [address] | | | | | | [phone] | | | +--------+---------+ + + + [...] however and [facility]. Some of this is [...] 4-5/5 for all major deltoids, biceps, triceps. Block Cuber slightly weak. Tone is normal. There is [...] cervical spine MRI to be done at [facility]. A few of these patients [...] + + +--------+ + + | [place] INJECT TRIGGER | Procedures | Routin | [...] | | | | | | Craniocervical junction | | | | | | [...] obtained. | | | | | | | | | | | | Flex | | | | | | | | | | | | Neutral | | | | | | ExtendC2/3: | | | | | | 1.19 | | | | | | cm | | | | | | 1.11 | | | | | | cm | | | | | | cmC3/4: | | | | | | 1.27 | | | | | | cm | | | | | | 1.21 | | | | | | cm | | | | | | cmC4/5: | | | | | | 1.31 | | | | | | cm | | | | | | 1.29 | | | | | | cm | | | | | | cmC5/6: | | | | | | 1.27 | | | | | | cm | | | | | | 1.20 | | | | | | cm | | | | | | cmC6/7: | | | | | | 1.31 | | | | | | cm | | | | | | 1.24 | | | | | | cm | | | | | | cmC7/T1: | | | | | | 1.23 | | | | | | cm | | | | | | 1.24 | | | | | | cm | | | | | | [...] | | + +---------+ + + | [facility] DEPARTMENT OF | | | | | RADIOLOGY | | | | + +---------+ + + documented in this encounter Visit Diagnoses + + | Diagnosis | + + | Cervicalgia | + + | Fibromyalgia Mylagia and myositis, unspecified | + + documented in this encounter"
--- OUTSIDE RECORDS SUMMARY | ~2018-11-09 | XMS | Encounter Summary ---
Demographics + + + | Address | [address] | | | [place] [address] | + + + | Home Phone [...] Team Providers + +------+ + | Care Geophysical Observer Name | Role | Phone | [...] | | | | Clinical Nutrition | [place], [place] | | | | | [address] | [address] | | | | | [facility] | [phone] | | | | | Mailcode: OPC5 | | | | | | Outpatient Clinic | | | | | | [facility] | | | | | | [place] [address] | | | | | | [phone] | | | +--------+ + + + [...] + + + | [facility] | [address] | [place] [address] | | | LABORATORY | | | [...] | uIU/ml | | | | | [facility] | | | | | | Laboratories. | | | | + + + + + + + + | Specimen | + + | | + + + + + + + | Performing | Address | City/State/Zipcode | Phone Number | | Organization | | | | + + + + + | [facility] | [address] | [place] [address] | | | LABORATORY | | | [...] + + | [facility] | [facility] | [place] [address] | | | PATHOLOGY | [address] | | | + + + + + | [facility] DEPARTMENT OF | [address] | [place] [address] | | | PATHOLOGY | [address] | | | + + + + + documented in this encounter Visit Diagnoses Not on filedocumented in this encounter"
--- OUTSIDE RECORDS SUMMARY | ~2018-11-09 | XMS | Encounter Summary ---
Demographics + + + | Address | [address] | | | [place] [address] | + + + | Home Phone [...] Providers + +------+ + | Care Product Development Ecologist Name | Role | Phone | + [...] as of this encounter Progress Notes Interface, Hat Lining Paster In - 01/12/2005 12:26 AM PDT [id number] [facility] Date: 07/25/2004 Clinic: Rheumatology [...] weight that she has lost. At the [employer], a study was presented [...] 6 months. Caitlin Rivera M.S., F.N.P. / [id number] / [id number] / [id number] / [id number] cc: Pedrito Gutierrez M.D. [address] [facility] [place] [address] Electronically signed by Caitlin Rivera 07-31-2004 12:02:37 PM documented i n this encounter Plan of Treatment Not on filedocumented as of this encounter Visit Diagnoses Not on filedocumented in this encounter"
--- OUTSIDE RECORDS SUMMARY | ~2018-11-09 | XMS | Encounter Summary ---
Demographics + + + | Address | [address] | | | [place] [address] | + + + | Home Phone [...] Organization | [facility] | | | and [...] Team Providers + +------+ + | Care Rough Carpenter Name | Role | Phone | + [...] + + | 09/09/ | Telephone | [facility] | Alanis, | Phone Attempt | | 2019 | | MEDICINE [address] [place] [address] | MD Petrona | | | | | [facility] | [address] [place] [address] | | | | | [place] [address] | [place] [address] | | | | | [phone] | [phone] | | | | | | | [...] | | | | | [place] [address] | | | | | | [phone] | | | | | | | | +--------+---------+ + + + documented as of this encounter Visit Diagnoses Not on filedocumented in this encounter"
--- OUTSIDE RECORDS SUMMARY | ~2018-11-09 | XMS | Encounter Summary ---
Demographics + + + | Address | [address] | | | [place] [address] | + + + | Home Phone [...] Providers + +------+ + | Care Technical Information Specialist Name | Role | Phone | + +------+ + | Sulaiman Carrera MD | PCP | Unavailable | + +------+ + Encounter Details +--------+ + + + + | Date | Type | Department | Care Team | Description | +--------+ + + + + | 06/12/ | Telephone | [facility] | Chris Padgett, | | | 2008 | | Center [address] | [address] [facility] | | | | | [address] Mailcode: | [address] | | | | | [facility] Center for | [place], [place] | | | | | Health and Healing, | [address] | | | | | 6th floor [place], | [phone] | | | | | [place] [address] | | | | | | [phone] | | | +--------+ + + + [...]
--- OUTSIDE RECORDS SUMMARY | ~2018-11-09 | XMS | Encounter Summary ---
Demographics + + + | Address | [address] | | | [place] [address] | + + + | Home Phone [...] Providers + +------+ + | Care Felling Bucking Supervisor Name | Role | Phone | [...] | | | [facility] | [place], [place] | | | | | Sharmila [address] | [address] | | | | | [address] | [phone] | | | | | Road Mailcode: | | | | | | [id number] Physicians | | | | | | [place], | | | | | | [place] [address] | | | | | | [phone] | | | +--------+ + + + [...]
--- OUTSIDE RECORDS SUMMARY | ~2018-11-09 | XMS | Encounter Summary ---
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 Diagnosis: Odessa I: 1. (296.32) Major depressive disorder, recurrent, moderate. 2. (309.24) Adjustment disorder with anxiety. 3. 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 Odessa II: Deferred Odessa III: abdominal pain, migraine headache, low back pain. Odessa IV: low finances Odessa V: GAF 55-60 Plan: Return with next medical follow-up appointment. Check mood, knee surgery, pacing, relaxati on, activity, distraction. Continue cognitive/behavioral therapy. Discuss need for further sessions. Total time spent with patient was approximately 45 minutes. LUKASZ CHARLES PHD [facility] [address] [facility], 4th [place] [address] documented in this encount er Plan of [...] | | | | | ([facility]) Spondylosis | | | | [...]
--- OUTSIDE RECORDS SUMMARY | ~2018-11-09 | XMS | Encounter Summary ---
Demographics + + + | Address | [address] | | | [place] [address] | + + + | Home Phone [...] Team Providers + +------+ + | Care Full Time Name | Role | Phone | [...] Status Post | | 2007 | | Center [address] | [address] [facility] | Bariatric Surgery | | | | [address] Mailcode: | [address] | (Primary Dx) | | | | [facility] Center for | [place], [place] | | | | | Health and Healing, | [address] | | | | | 6th floor [place], | [phone] | | | | | [place] [address] | | | | | | [phone] | | | +--------+ + + + [...] | | | | | | ng/mLInsufficiency: 2 | | | | | | 0-29 ng/mLOptimum | | | | | | Level: 30-80 | | | | | | ng/mLPossible | | | | | | Toxicity: Greater | | | | | | than 80 ng/mLPerformed | | | | | | by [employer],[address] | | | | | | [address] Morales, [facility] [place] | | | | | | [address] | | | | | | [phone][employer]. | | | | | | Sincere [...] [facility] | [address] | [place], [place] | | | UNIV PTH - INTFC | | [address] | | + + + + + PTH, SERUM (07/01/2007 2:32 PM PST) + + + + + + | Component | Value | Ref Range | Performed | Pathologist | | | | | At | Signature | + + + + + + | PTH, SERUM | 56.0Comment: Test | 15.0 - 75.0 | | | | | performed by [facility] | pg/mL | | | | | Tk Terry. | | | | + + + + + + + + | Specimen | + + | | + + + + + + + | Performing | Address | City/State/Zipcode | Phone Number | | Organization | | | | + + + + + | [facility] | [address] | [place] [address] | | | LABORATORY | | | [...] RLB ([address] [facility]) | | | [facility] [place] [address] | | | [place] [address] | | + + + + + + + + | Performing | Address | City/State/Zipcode | Phone Number | | Organization | | | | + + + + + | [facility] | [address] | [place] [address] | | | LABORATORY | | | [...] RLB ([address] [facility]) | | | [facility] [place] [address] | | | [place] [address] | | + + + + + + + + | Performing | Address | City/State/Zipcode | Phone Number | | Organization | | | | + + + + + | [facility] | [address] [facility] | [place] [address] | | | LABORATORY | | | [...] Performed At | + + + | [address] Estimated GFR > 60 mL/min/1.73 sq m if non- | [facility] | | [address] Estimated GFR > 60 mL/min/1.73 sq m [...] + + + + | [facility] DEPARTMENT | [address] [facility] | [place] [address] | | | PATHOLOGY | [address] | | | + + + + + | [facility] DEPARTMENT OF | [address] | [place] [address] | | | PATHOLOGY | [address] [...] DEPARTMENT OF | [address] | [place] [address] | | | PATHOLOGY | [address] | | | + + + + + | [facility] | [address] | [place] [address] | | | PATHOLOGY | [address] | | | + + + + + documented in this encounter Visit Diagnoses + + | Diagnosis | + + | Status post bariatric surgery - Primary Bariatric surgery status | + + documented in this encounter"
--- OUTSIDE RECORDS SUMMARY | ~2018-11-09 | XMS | Encounter Summary ---
Demographics + + + | Address | [address] | | | [place] [address] | + + + | Home Phone [...] Team Providers + +------+ + | Care Electrolog Operator Name | Role | Phone | [...] as of this encounter Progress Notes Interface, Safety Inspector In - 07/03/2006 2:33 AM PST [id number] GEOVANNI SKELTON [place] [id number] Clinic Date: 06/24/2006 Clinic: Rheumatology Subjective: Belinda Meehan is a 46-year-old woman here for followup of fibromyalgia. 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 Caitlin Rivera M.S., F.N.P. / [id number] / [id number] / [id number] / [id number] cc: [facility] Electronically signed by Caitlin Rivera 07-02-2006 11:27:56 AM documented in this encounter Plan of Treatment Not on filedocumented as of this encounter Visit Diagnoses Not on filedocumented in this encounter"
--- OUTSIDE RECORDS SUMMARY | ~2018-11-09 | XMS | Encounter Summary ---
Demographics + + + | Address | [address] | | | [place] [address] | + + + | Home Phone [...] | [facility] [...] + +------+ + | Care Elementary School Band Director Name | Role | Phone | [...] | phalanx of | [address] | [address] | | | | | left great | [place], | Phone: | | | | | toe, initial | [place] | [phone] | | | | | encounter | [address] | Fax: | | | | | | Phone: | [phone] | | | | | | [phone] | | | | | | | Fax: | | | | | | | [phone] | | + + + + + + + Encounter Details +--------+ + + + + | Date | Type | Department | Care Team | Description | +--------+ + + + + | 08/26/ | Orders Only | [facility] | Alanis, | Closed nondisplaced | | 2018 | | MEDICINE [address] | MD Petrona | fracture of proximal | | | | [address] [place] | [address] [place] | phalanx of left | | | | [place] [address] | [place] [address] | great toe, initial | | | | [phone] | [phone] | encounter (Primary | | | | [...] | | | | | [place] [address] | | | | | | [phone] | | | | | | | [...]
--- OUTSIDE RECORDS SUMMARY | ~2018-11-09 | XMS | Encounter Summary ---
Demographics + + + | Address | [address] | | | [place] [address] | + + + | Home Phone [...] Providers + +------+ + | Care Field Assessor Name | Role | Phone | + +------+ + | Pedrito Gutierrez MD | PCP | | + +------+ + Encounter Details +--------+ + + + + | Date | Type | Department | Care Team | Description | +--------+ + + + + | 07/30/ | Office | [facility] 7th | Clinic, | Progress Note | | 2006 | Visit-Trans | Floor [address] | Endocrinology | | | | cribed | [facility] | | | | | | Mailcode: [facility] | | | | | | [place], [place] | | | | | | [address] | | | | | | [phone] | | | +--------+ + + + [...] as of this encounter Progress Notes Interface, Laborer Aquatic Life In - 09/16/2006 7:22 AM PDT [id number] GEOVANNI Barnes [address] Clinic Date: 07/30/2006 Clinic: Endocrinology Subjective: Belinda [...] year. Beto Meeks M.D. PD / HS [id number] / [id number] / [id number] / [id number] cc: Joanna Arshad M.D. Jonathan Hitzman, M.D. [address] [place] [address] Electronically signed by Beto Meeks 09-15-2006 11:40:17 PM documented in this encounter Plan of Treatment Not on filedocumented as of this encounter Visit Diagnoses Not on filedocumented in this encounter"
--- OUTSIDE RECORDS SUMMARY | ~2018-11-09 | XMS | Encounter Summary ---
Demographics + + + | Address | [address] | | | [place] [address] | + + + | Home Phone [...] Providers + +------+ + | Care Kelp Or Seagrass Gatherer Name | Role | Phone | [...] | | 2007 | Visit | Rheumatology [address] | ORDER PROCESSING MANAGER | syndrome 729.1 | | | | [address] [place] | | (Primary Dx) | | | | Road Mailcode: OPC5 | | | | | | Outpatient Clinic | | | | | | [place], | | | | | | [place] [address] | | | | | | [phone] | | | +--------+---------+ + + + [...] have much room. I wonder about small music journalist ior fossa. There is a disc bulge [...] 07/05/2007 56.0 15.0-75.0 Final Test performed by [facility]. VITAMIN D 25 HYDROXY (ng/mL) 07/03/2007 47 20-57 Final Comment: TEST INFORMATION: VITAMIN D, 25-HYDROXY This assay accurately quantifies the sum of vitamin D3, 25-hydroxy and vitamin D2, 25-hydroxy. Deficiency: Less than 20 ng/mL Insufficiency: 20-29 ng/mL Optimum Level: 30-80 ng/mL Possible Toxicity: Greater than 80 ng/mL Performed by [email or web address] Application, [address] [place] [id number] [email or web address], Sincere Jordan MD - Lab. Director documented in this encount er Plan of Treatment Not on filedocumented as of this encounter Visit Diagnoses + + | Diagnosis | + + | Fibromyalgia syndrome 729.1 - Primary Mylagia and myositis, unspecified | + + documented in this encounter"
--- OUTSIDE RECORDS SUMMARY | ~2018-11-09 | XMS | Encounter Summary ---
Demographics + + + | Address | [address] | | | [place] [address] | + + + | Home Phone [...] Organization | [facility] | | | and Jairana [...] Team Providers + +------+ + | Care Mower Sharpener Name | Role | Phone | [...] Required | | | i, | [address] | | | | | osteoporosis | Sul[address]Iv[address] | Cece Zhao, | | | | | without | , MD [address] | [place] [address] | | | | | current | [address] | Phone: | | | | | pathological | [place], | [phone] | | | | | fracture | [place] | Fax: | | | | | | [address] | [phone] | | | | | | Phone: | | | | | | | [phone] | | | | | | | Fax: | | | | | | | [phone] | | +--------+ + + + + + Reason for Visit + + + | Reason | Comments | + + + | Medication Orders | | + + + Encounter Details +--------+ + + + + | Date | Type | Department | Care Team | Description | +--------+ + + + + | 09/20/ | Telephone | [facility] | Alanis, | Medication Orders | | 2019 | | MEDICINE [address] [place] [address] | MD Petrona | | | | | [facility] | [address] [place] [address] | | | | | [place] [address] | [place] [address] | | | | | [phone] | [phone] | | | | | | | [...] | | | | | [place] [address] | | | | | | [phone] | | | | | | | [...]
--- OUTSIDE RECORDS SUMMARY | ~2018-11-09 | XMS | Encounter Summary ---
Demographics + + + | Address | [address] | | | [place] [address] | + + + | Home Phone [...] Team Providers + +------+ + | Care Toolmaker Name | Role | Phone | + [...] | | | | Clinical Nutrition | [place], [place] | | | | | [address] | [address] | | | | | [facility] | [phone] | | | | | Mailcode: OPC5 | | | | | | Outpatient Clinic | | | | | | [facility] | | | | | | [place] [address] | | | | | | [phone] | | | +--------+ + + + [...] | + + + + + | [facility] DEPARTMENT OF | [address] | [place] [address] | | | PATHOLOGY | [address] | | | + + + + + | [facility] DEPARTMENT OF | [address] | [place] [address] | | | PATHOLOGY | [address] [...] + | [facility] | [address] | [place] [address] | | | PATHOLOGY | [address] | | | + + + + + | [facility] | [address] | [place] [address] | | | PATHOLOGY | [address] | | | + + + + + documented in this encounter Visit Diagnoses Not on filedocumented in this encounter"
--- OUTSIDE RECORDS SUMMARY | ~2018-11-09 | XMS | Encounter Summary ---
Demographics + + + | Address | [address] | | | [place] [address] | + + + | Home Phone [...] Providers + +------+ + | Care Envelope Fold Operator Name | Role | Phone | [...] | 2006 | Visit | Center at [facility] | [address] | Myelopathy, Lumbar | | | | [address] [place], | Region; Neck Pain; | | | | [address] Mail Code: | [place] [address] | Herniated Lumbar | | | | [facility] | | Intervertebral Disc | | | | Health and Healing, | | L4-5; Fibromyalgia | | | | 15th Floor | | syndrome 729.1; NO | | | | [place], [place] | | DIAGNOSIS RECEIVED | | | | [address] | | | | | | [phone] | | | +--------+---------+ + + + [...] Date: December 02, 2006 Patient: Belinda Meehan, [id number], 1960 I agree with the proposed Physical Therapy Treatment Plan. Provider: DELFINA BUNDY elfina Molina - 007 11:31 AM PDTThis encounter was opened in error. Please disregard this note. athalia Arora - 007 12:26 PM PDT PROGRESS NOTE: Physical Therapy Medicare Progress Note Date: 10/07/2006 Belinda Meehan [id number]. 1960 Start of Care: 06/23/2006 Referring Provider: [...] dial meniscal tear. Patient continues walking at [place] on a daily basis, (when she is no t in [place] for appts), 30-40 minutes, and her HEP [...] issue of left knee joint. Treatment began: 1110 Treatment ended: 115 Nathalia Arora, Physical Therapist License #[id number] documented in this encoun ter Plan of [...]
--- OUTSIDE RECORDS SUMMARY | ~2018-11-09 | XMS | Encounter Summary ---
Demographics + + + | Address | [address] | | | [place] [address] [...] Team Providers + +------+ + | Care Turbine Inspector Name | Role | Phone | [...] | End General | | | | , Diabetes & | | Epic Dept | Ppv [address] | | | | Metabolism | | | [address] | | | | | | | [facility] | | | | | | | Physicians | | | | | | | Pavilion | | | | | | | Physicians | | | | | | | Pavilion | | | | | | | [place], [place] | | | | | | | [address] | | | | | | | Phone: | | | | | | | [phone] | | | | | | | Fax: | | | | | | | [phone] | +--------+--------+ + + + + Encounter Details +--------+---------+ + + + | Date | Type | Department | Care Team | Description | +--------+---------+ + + + | 01/05/ | Office | Dig[facility]ive Health | Eliezer Ruano, | Follow-Up | | 2007 | Visit | Center [address] | [address] [facility] | Examination | | | | [address] Mailcode: | [address] | Following Surgery | | | | [facility] | [place], [place] | (Primary Dx) | | | | Health and Healing, | [address] | | | | | 6th floor [place], | [phone] | | | | | [place] [address] | | | | | | [phone] | | | +--------+---------+ + + + [...] plan of care. ELIEZER RUANO MD [facility] [address] [place] [address] And [facility], [address] [place] [address] Tejas Trevino - 01/05 1:54 PM PDTS: Pt is here one week postop lysis of adhesions. She is doing well. She i s still having some pain. PE: Midline incision closed with reshma. Coventry removed. There was a small opening of [...]
--- OUTSIDE RECORDS SUMMARY | ~2018-11-09 | XMS | Encounter Summary ---
Demographics + + + | Address | [address] | | | [place] [address] | + + + | Home Phone [...] Team Providers + +------+ + | Care Monitor And Storage Bin Tender Name | Role | Phone | [...] 05/28/ | Office | Pain Center at [facility] | Lukasz Charles, | Major Depressive | | 2006 | Visit | 15th Floor [address] | PhD [address] | Disorder, Recurrent | | | | [address] Mail | Ave [place], [place] | Episode, Moderate | | | | Code: [facility] | [address] | ([facility]); LBP (Low Back | | | | for Health and | [phone] | Pain); 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 Diagnosis: [place] I: 1. (296.32) Major depressive disorder, recurrent, moderate. 2. (309.24) Adjustment disorder with anxiety. 3. 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 [place] II: Deferred [place] III: abdominal pain, migraine headache, low back pain. [place] IV: low finances [place] V: GAF 55-60 Plan: Return with next medical follow-up appointment. Check mood, knee surgery, relaxation, acti vity, distraction. Continue cognitive/behavioral therapy. Total time spent with patient was approximately 45 minutes. LUKASZ CHARLES PHD [facility] [address] [facility] [place], 4th [place] [address] documented in this encount er Plan of [...]
--- OUTSIDE RECORDS SUMMARY | ~2018-11-09 | XMS | Encounter Summary ---
Demographics + + + | Address | [address] | | | [place] [address] | + + + | Home Phone [...] Team Providers + +------+ + | Care Crawler Tractor Operator Name | Role | Phone | [...] [address] | | | | | | [place], [place] | | | | | | [address] | | | | | | [phone] | | | +--------+ + + + [...]
--- OUTSIDE RECORDS SUMMARY | ~2018-11-09 | XMS | Encounter Summary ---
Demographics + + + | Address | [address] | | | [place] [address] | + + + | Home Phone [...] Providers + +------+ + | Care Transfer Table Operator Name | Role | Phone | [...] + + | 09/23/ | Office | [facility] | Delfina Molina, | Spondylosis with | | 2006 | Visit | Pain Center at | ANP | Myelopathy, Lumbar | | | | [facility] | | Region; Herniated | | | | [address] | | Lumbar | | | | Mail Code: CH15P | | Intervertebral Disc | | | | [place] [facility] | | L4-5; Right shoulder | | | | and , | | rotator cuff | | | | Floor [place], [place] | | strain; DJD | | | | [address] | | (Degenerative Joint | | | | [phone] | | Disease) of Left | | [...] 72 hours on schedule 2. Continue with [place] 10/325 1 tablet three times per day [...] is a 46 y.o. female [facility] Comprehensive [...] 72 hours on schedule 2. Continue with [place] 10/325 1 tablet three times per day as needed for increased pain wit h activity. 3. Continue with Trileptal 150mg, 1 tablet twice a day 4. Continue with PT and psychology as scheduled 5. Follow up with Delfina Molnia in 4 weeks or sooner if needed. 6. Continue with orthopedic and neurology evaluations as scheduled DELFINA MOLINA [facility] Mail code CH 4P [place] [facility] and [address] [address] Ty Omalley - 7 9:28 [...] Yes , Fentanyl patch documented in this [facility] Plan of Treatment Not on filedocumented [...]
--- OUTSIDE RECORDS SUMMARY | ~2018-11-09 | XMS | Encounter Summary ---
Demographics + + + | Address | [address] | | | [place] [address] | + + + | Home Phone [...] Providers + +------+ + | Care Crop Puller Name | Role | Phone | [...] | [address] | [address] [place], | Region; Neck Pain; | | | | [address] Mail Code: | [place] [address] | Herniated Lumbar | | | | [facility]15[facility] | | Intervertebral Disc | | | | Health and Healing, | | L4-5; Fibromyalgia | | | | 15th Floor | | syndrome 729.1 | | | | [place], [place] | | | | | | [address] | | | | | | [phone] | | | +--------+---------+ + + + [...] August 12, 2006 Patient: Belinda Molly Meehan, [id number], 1960 I agree with the proposed Physical Therapy Treatment Plan. Provider: DELFINA MOLINA ANP Nathalia Keyes - 007 12:04 PM PST Physical Therapy Medicare Progress Note Date: 08/12/2006 Belinda Meehan [id number]. 1960 Start of Care: 06/23/2006 Referring Provider: [...] nausea, pain lev el head/neck 10/10; lowback 4/10. Objective: Patient was unable to perform active [...] lower extremities. Treatment began: 1099 Treatment ended: 113 Nathalia Arora, Physical Therapist License number [id number] documented in this encoun ter Plan of Treatment + + +--------+ + + | Name | Type | Priori | Associated Diagnoses | Order Schedule | | | | ty | | | + + +--------+ + + | [facility] THERAPEUTIC | Procedures | Routin | Spondylosis [...] + + +--------+ + + | [place] THERAPEUTIC | Procedures | Routin | Spondylosis [...]
--- OUTSIDE RECORDS SUMMARY | ~2018-11-09 | XMS | Encounter Summary ---
Demographics + + + | Address | [address] | | | [place] [address] | + + + | Home Phone [...] Providers + +------+ + | Care Supervisor Rod Placing Name | Role | Phone | + +------+ + | Pedrito Gutierrez MD | PCP | | + +------+ + Encounter Details +--------+ + + + + | Date | Type | Department | Care Team | Description | +--------+ + + + + | 05/20/ | Telephone | Dig[facility]ive Health | Rohan Foley MD | | | 2005 | | [place] at [facility] [address] | | | | | | [address] | | | | | | Mailcode: Center | | | | | | for Health and | | | | | | [facility], Building [address] | | | | | | [place], [place] | | | | | | [address] | | | | | | [phone] | | | +--------+ + + + [...]
--- OUTSIDE RECORDS SUMMARY | ~2018-11-09 | XMS | Encounter Summary ---
Demographics + + + | Address | [address] | | | [place] [address] | + + + | Home Phone [...] as of this encounter Progress Notes Interface, Eight Arm Operator In - 01/12/2005 8:09 AM PDT [id number] [facility] Date: 02/27/2004 Clinic: [facility] Subjective: The patient underwent gastric bypass surgery in November 2003 under the care of Dr. Chris Padgett here at [facility]. She has been doing well after [...] been scheduled through the Sleep Clinic in [place]. Medications 1. Ranitidine 150 mg p.o. b.i.d. [...] months. Issac Meeks M.D. MONIQUE / SHARIF [id number] / [id number] / [id number] / cc: Joanna Arshad M.D. [address] [facility] [place] [address] documented i n this encounter Plan of Treatment Not on filedocumented as of this encounter Visit Diagnoses Not on filedocumented in this encounter"
--- OUTSIDE RECORDS SUMMARY | ~2018-11-09 | XMS | Encounter Summary ---
Demographics + + + | Address | [address] | | | [place] [address] | + + + | Home Phone [...] Providers + +------+ + | Care Duct Layer Supervisor Name | Role | Phone | [...] as of this encounter Progress Notes Interface, Adjunct Professor In - 01/11/2005 11:07 PM PDT Referred [...] is being seen by an orthopedist in [place]. She brings her brace today which she states is going well. The patient, however, yesterday awoke with neck stiffness and pain with spasming type pains in the area of her neck. She was seen in the emergency room last night in [place] for injection after a migraine. She states [...] Jesus M.D. Domingo Lozoya M.D. Gokul P [id number] cc: Pedrito Gutierrez MD [address] [place], [place] [email or web address] signed by Interface, Adjunct Professor In at 5 11:07 PM PDTdocumented in this encounter Plan of Treatment Not on filedocumented as of this encounter Visit Diagnoses Not on filedocumented in this encounter"
--- OUTSIDE RECORDS SUMMARY | ~2018-11-09 | XMS | Encounter Summary ---
Demographics + + + | Address | [address] | | | [place] [address] | + + + | Home Phone [...] Providers + +------+ + | Care Director Design Name | Role | Phone | [...] | | | | | abdominal | [place] | [address] [facility] | | | | | pain | Health & | [facility] | | | | | Procedures | Science | Rd [place], | | | | | REQUEST TO | University | [place] | | | | | SURGERY | [address] [facility] | [address] | | | | | LINE SERVICE TECHNICIAN | [address] | Phone: | | | | | [place] | Rd | [phone] | | | | | EXPLORATORY | [place], [place] | Fax: | | | | | OF ABDOMEN | [address] | [phone] | | | | | IN [place] | | | | | | [...] | | | | | | Rd [place], | | | | | | | [place] | | | | | | | [address] | | | | | | | Phone: | | | | | | | [phone] | | | | | | | Fax: | | | | | | | [phone] | +--------+--------+ + + + + Encounter [...] | | | [facility] for | [place], [place] | | | | | Health and Healing, | [address] | | | | | 6th floor [place], | [phone] | | | | | [place] [address] | | | | | | [phone] | | | +--------+---------+ + + + [...] the resident s note. CHRIS RUANO MD [facility] [address] [facility], 6th [place] [phone] Chris Peralta - 10:55 AM PDTThe patient [...] not work at this time. Lives in [place], [place] FH: Noncontributory ROS: No recent fevers, [...] DEPARTMENT OF | [address] | [place] [address] | | | PATHOLOGY | [address] | | | + + + + + | [facility] | [address] [facility] | [place] [address] | | | PATHOLOGY | [address] [...] | | + +---------+ + + | [facility] DEPARTMENT OF | | | | | RADIOLOGY | | | | + +---------+ + + documented in this encounter Visit Diagnoses + + | Diagnosis | + + | Chronic abdominal pain - Primary Abdominal pain, unspecified site | + + documented in this encounter"
--- OUTSIDE RECORDS SUMMARY | ~2018-11-09 | XMS | Encounter Summary ---
Demographics + + + | Address | [address] | | | [place] [address] | + + + | Home Phone [...] | Organization | [facility] | | | and Jairana [...] Providers + +------+ + | Care Roustabout Pusher Name | Role | Phone | [...] Required | | | i, | [address] | | | | | osteoporosis | [address] | Cece Zhao, | | | | | without | , [place] [address] | [place] [address] | | | | | current | [address] | Phone: | | | | | pathological | [place], | [phone] | | | | | fracture | [place] | Fax: | | | | | | [address] | [phone] | | | | | | Phone: | | | | | | | [phone] | | | | | | | Fax: | | | | | | | [phone] | | +--------+ + + + + [...] Required | | | i, | [address] | | | | | osteoporosis | [address] | Cece Zhao, | | | | | without | , MD [address] | [place] [address] | | | | | current | [address] | Phone: | | | | | pathological | [place], | [phone] | | | | | fracture | [place] | Fax: | | | | | | [address] | [phone] | | | | | | Phone: | | | | | | | [phone] | | | | | | | Fax: | | | | | | | [phone] | | +--------+ + + + + [...] Required | | | i, | [address] | | | | | osteoporosis | Sulaiman-Russell | Cece Zhao, | | | | | without | , [address] | [place] [address] | | | | | current | [address] | Phone: | | | | | pathological | [place], | [phone] | | | | | fracture | [place] | Fax: | | | | | | [address] | [phone] | | | | | | Phone: | | | | | | | [phone] | | | | | | | Fax: | | | | | | | [phone] | | +--------+ + + + + + Encounter Details +--------+ + + + + | Date | Type | Department | Care Team | Description | +--------+ + + + + | 10/14/ | Hospital | [facility] | Alanis, | Age-related | | 2019 | Encounter | MED CTR OP INFUSION | MD Petrona | osteoporosis without | | | | [address] | [address] [facility] | current | | | | [place], [place] | [place] [address] | pathological | | | | [address] | [phone] | fracture (Primary | | | | [phone] | | Dx) | +--------+ + + [...] Petrona | | | | | | [facility] [address] [facility] | | | | | | [place] [address] | | | | | | [phone] | | | | | | | [...]
--- OUTSIDE RECORDS SUMMARY | ~2018-11-09 | XMS | Encounter Summary ---
Demographics + + + | Address | [address] | | | [place] [address] | + + + | Home Phone [...] Team Providers + +------+ + | Care Transcription Specialist Name | Role | Phone | [...] 2006 | Visit-ECX | Diabetes and | [address] | | | | | Clinical Nutrition | [place], [place] | | | | | [address] | [address] | | | | | [facility] | [phone] | | | | | Mailcode: OPC5 | | | | | | Outpatient Clinic | | | | | | Building [place], | | | | | | [place] [address] | | | | | | [phone] | | | +--------+ + + + [...]
--- OUTSIDE RECORDS SUMMARY | ~2018-11-09 | XMS | Encounter Summary ---
Demographics + + + | Address | [address] | | | [place] [address] | + + + | Home Phone [...] Team Providers + +------+ + | Care Scorekeeper Name | Role | Phone | + [...] + | 08/26/ | Office | Orthopaedics at | Morales, Angel | Osteoarth NOS-L/Leg | | 2006 | Visit | [facility] [address] | MD Darrion,PhD [address] | (Primary Dx) | | | | Bethanie Mailcode: CH12A | [address] [facility] | | | | | [facility] | [place], [place] | | | | | and [facility], | [address] | | | | | Floor [place], [place] | [phone] | | | | | [address] | | | | | | [phone] | | | +--------+---------+ + + + [...] (ciprofloxacin) Tramadol Morphine IM ( only in [facility]) made gut pain worse REVIEW [...] normal limits except as noted. RIGHT LEFT [place] Crepitation J Sign Apprehension LIGAMENTS: Within normal [...] are not effective. Angel Morales M.D., Ph.D. Assigner, Surgical Cartridge Filler Orthopedics & Cartilage Reconstruction Surgery Department of Orthopedics [email or web address] documented in this encou nter Plan of Treatment Not on filedocumented as of this encounter Visit Diagnoses + + | Diagnosis | + + | Osteoarthrosis, unspecified whether generalized or localized, lower leg - Primary | + + documented in this encounter
--- OUTSIDE RECORDS SUMMARY | ~2018-11-09 | XMS | Encounter Summary ---
Demographics + + + | Address | [address] | | | [place] [address] | + + + | Home Phone [...] Providers + +------+ + | Care Fraud Examiner Name | Role | Phone | [...] | | | | | site | [place], [place] | [place], [place] | | | | | Cervicalgia | [address] | [address] | | | | | Pain in | | | | | | | joint, site | | | | | | | unspecified | | | | | | | Procedures | | | | | | | [place] | | | | | | | [...] Spondylosis | | 2006 | Visit | Center at [facility] | [address] | without Myelopathy | | | | [address] | [address] [place], | (Primary Dx); | | | | [address] Mail Code: | [place] [address] | Spondylosis with | | | | [facility] for | | Myelopathy, Lumbar | | | | Health and Healing, | | Region; Herniated | | | | 15th Floor | | Lumbar | | | | [place], [place] | | Intervertebral Disc; | | | | [address] | | Unspecified Myalgia | | | | [phone] | | and Myositis | +--------+---------+ + [...] Date: July 17, 2006 Patient: Belinda Meehan, [id number], 1960 I agree with the proposed Physical Therapy Treatment Plan. Provider: DELFINA MOLINA ANP elfina Molina - 007 6:13 PM PST.pt rlands onNathalia - 07/15/2006 4:28 PM PSTFormatting of this note might be different from the origin al. Physical Therapy Medicare Progress Note Date: 07/15/2006 Belinda Meehan [id number]. 1960 Start of Care: 06/23/2006 Referring Provider: [...] + + +--------+ + + | [place] MANUAL THER | Procedures | Routin | [...] [place] THERAPEUTIC | Procedures | Routin | Cervical [...]
--- OUTSIDE RECORDS SUMMARY | ~2018-11-09 | XMS | Encounter Summary ---
Demographics + + + | Address | [address] | | | [place] [address] | + + + | Home Phone [...] Organization | [facility] | | | and [...] Providers + +------+ + | Care Signal Wirer Name | Role | Phone | [...] + + | 08/24/ | Telephone | [facility] | Alanis, | Toe Pain | | 2019 | | MEDICINE [address] [place] [address] | MD [place]rona | | | | | [facility] | [address] [place] [address] | | | | | [place] [address] | [place] [address] | | | | | [phone] | [phone] | | | | | | | [...] | | | | | [place] [address] | | | | | | [phone] | | | | | | | | +--------+---------+ + + + + +--------+ + + | Name | Priori | Associated Diagnoses | Order Schedule | | | ty | | | + +--------+ + + | XR Toe Left 2 + Vw | Routin | Toe pain, left | Expected: | | | e | | 08/24/2018, Expires: | | | | | 08/25/2019 | + +--------+ + + documented as of this encounter Visit Diagnoses + + | Diagnosis | + + | Toe pain, left - Primary Pain in limb | + + documented in this encounter"
--- OUTSIDE RECORDS SUMMARY | ~2018-11-09 | XMS | Encounter Summary ---
Demographics + + + | Address | [address] | | | [place] [address] | + + + | Home Phone [...] Providers + +------+ + | Care Planning Consultant Name | Role | Phone | [...] as of this encounter Progress Notes Interface, Fabrication Engineer In - 01/13/2005 9:03 AM PDT [id number] [facility] Date: 01/02/2005 Clinic: [facility] Subjective: Ms. Meehan presents today on a walk-in basis for evaluation of some discharge from her panniculectomy incisions over her medial thighs. She reports that she was in town today from [place], [place], to get some labs drawn at [facility] and decided to stop by the clinic [...] Sree Riley M.D. Chris Padgett M.D. / [id number] / [id number] / [id number] / [id number] C: 01/08/2005 cmw documented i n this encounter Plan of Treatment Not on filedocumented as of this encounter Visit Diagnoses Not on filedocumented in this encounter"
--- OUTSIDE RECORDS SUMMARY | ~2018-11-09 | XMS | Encounter Summary ---
Demographics + + + | Address | [address] | | | [place] [address] | + + + | Home Phone [...] + + | Organization | [facility] | | | and Jairana | [...] Providers + +------+ + | Care School Office Manager Name | Role | Phone [...] Imaging | | 2018 | | MEDICINE [address] [place] [address] | MD Petrona | | | | | [facility] | [address] [place] [address] | | | | | [place] [address] | [place] [address] | | | | | [phone] | [phone] | | | | | | | [...] Petrona | | | | | | [facility] [address] | | | | | | [place] [address] | | | | | | [phone] | | | | | | | | +--------+---------+ + + + documented as of this encounter Visit Diagnoses Not on filedocumented in this encounter"
--- OUTSIDE RECORDS SUMMARY | ~2018-11-09 | XMS | Encounter Summary ---
Demographics + + + | Address | [address] | | | [place] [address] | + + + | Home Phone [...] Team Providers + +------+ + | Care Painting Trades Worker Name | Role | Phone | + +------+ + | Sulaiman Carrera MD | PCP | Unavailable | + +------+ + Encounter Details +--------+ + + + + | Date | Type | Department | Care Team | Description | +--------+ + + + + | 04/02/ | Hospital | Registration 3181 | Astrid Artis | | | 2005 | Activity | S Lisa Wilson MD [address] | | | | | [facility] Mailcode: | [place], [place] | | | | | RPB07 [place], [place] | [address] | | | | | [address] | [phone] | | | | | [phone] | | | +--------+ + + + [...] | | | | | | diagnostic | | | | | | abnormalityB: Colon, | | | | | | sigmoid, | | | | | | polypectomy: - | | | | | | Hyperplastic | | | | | | polypC: Rectum, | | | | | | polypectomy x 2: | | | | | | - Colorectal mucosa | | | | | | with xanthomatous | | | | | | changes of lamina | | | | | | propria - | | | | | | Negative for dysplasia- | | | | | | Please see comment | | | | | | Comment: The findings | | | | | | in the rectal biopsies | | | | | | reveal xanthomatous | | | | | | changesof lamina | | | | | | propria. Special stains | | | | | | for PAS/d, mucicarmine | | | | | | and Sana arereviewed. | | | | | | Case reviewed by:C. | | | | | | Shalini Jung, | | | | | | M.D./Surgical Pathology | | | | | | FellowManish Cherry, | | | | | | M.D./PathologistT:04/06/ | | | | | | 06:[facility] I have reviewed | | | [...] | | | | | | 46-year-old | | | | | | female. Status post | | | | | | gastric bypass. Now | | | | | | irondeficiency; small | | | | | | bowel looks | | | | | | normal. Rule out | | | | | | sprue. Few sessile | | | | | | polyps.Rule out | | | | | | ulceration. Gross | | | | | | Description:Three | | | | | | specimens are received | | | | | | in formalin. | | | | | | A: Jejunum | | | | | | biopsy: Received are | | | | | | five fragments of karimi, | | | | | | soft tissue,measuring | | | | | | 0.5 x 0.5 x 0.5 cm in | | | | | | aggregate. The entire | | | | | | specimen issubmitted. | | | | | | B: Sigmoid colon | | | | | | polyp biopsy x | | | | | | 2: Received are two | | | | | | fragments of karimi,soft | | | | | | tissue, measuring 0.5 x | | | | | | 0.5 x 0.2 cm in | | | | | | aggregate. The | | | | | | entirespecimen is | | | | | | submitted. C: Rectal | | | | | | polyp x 2: Received | | | | | | is a single fragment of | | | [...] | | | | | | 2:B1, | | | | | | wrappedC: Rectal | | | | | | polyp x 2:C1, | | | | | | wrappedJK:CNL:labRenderi | | | | | | ng | | | | | | Diagnostician: Manish | | | | | | Jo Ann | | | | | | M.AdaPathologistElectroni | | | | | | mary [...] | [facility] | [address] [facility] | [place] [address] | | | PATHOLOGY | [address] | | | + + + + + | [facility] DEPARTMENT OF | [address] [facility] | [place] [address] | | | PATHOLOGY | [address] | | | + + + + + documented in this encounter Visit Diagnoses Not on filedocumented in this encounter"
--- OUTSIDE RECORDS SUMMARY | ~2018-11-09 | XMS | Encounter Summary ---
Demographics + + + | Address | [address] | | | [place] [address] | + + + | Home Phone [...] + +------+ + | Care Special Education Paraeducator Name | Role | Phone | + [...] | | | Mychal Kovacs Mailcode: | [facility] | | | | | [address] for | [place], [place] | | | | | Health and Healing, | [address] | | | | | 6th [facility], | [phone] | | | | | [place] [address] | | | | | | [phone] | | | +--------+--------+ + + + [...]
--- OUTSIDE RECORDS SUMMARY | ~2018-11-09 | XMS | Encounter Summary ---
Demographics + + + | Address | [address] | | | [place] [address] | + + + | Home Phone [...] Team Providers + +------+ + | Care Quantitative Research Analyst Name | Role | Phone | [...] + + | 06/28/ | Office | 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 Epidural steroid injections are awhile call to schedule with Dr. Kylah SHEEHAN. documented in this encounter Progress Notes Delfina Molina - 06/28/2007 8:56 AM PSTFormatting of this note might be different from th e original. 06/28/2007 Belinda Meehan is a 47 y.o. female [facility] [...] be in bed so long. Son primary human services care specialist. Current outpatient medications Medication Sig Dispense Refill [...] Resulting Agency 05/25/2007 4:06 PM [facility] DEPARTMENT OF RADIOLOGY Component Results [...] with any concerns or questions. DELFINA MOLINA [facility] Mail code CH 4P [facility] [address] [facility] [address] Ailyn Bello [...]
--- OUTSIDE RECORDS SUMMARY | ~2018-11-09 | XMS | Encounter Summary ---
Demographics + + + | Address | [address] | | | [place] [address] | + + + | Home Phone [...] Team Providers + +------+ + | Care Custody Officer Name | Role | Phone | [...] ANP | Assessment | | | | [facility] | | | | | | [address] | | | | | | Mail Code: CH15P | | | | | | [facility] | | | | | | and Healing, | | | | | | Floor [place], [place] | | | | | | [address] | | | | | | [phone] | | | +--------+ + + + [...]
--- OUTSIDE RECORDS SUMMARY | ~2018-11-09 | XMS | Encounter Summary ---
Demographics + + + | Address | [address] | | | [place] [address] | + + + | Home Phone [...] Team Providers + +------+ + | Care Wind Tunnel Engineer Name | Role | Phone | + +------+ + | Pedrito Gutierrez MD | PCP | | + +------+ + Encounter Details +--------+ + + + + | Date | Type | Department | Care Team | Description | +--------+ + + + + | 11/24/ | Results | Registration 3181 | Vilma Gibbons | | | 2007 | Only | Sara [address]ley | [phone] | | | | | [facility] Mailcode: | | | | | | [address] [place], [place] | | | | | | [address] | | | | | | [phone] | | | +--------+ + + + [...] [facility] DEPARTMENT OF | [address] | [place] [address] | | | PATHOLOGY | [address] | | | + + + + + | [facility] DEPARTMENT OF | [address] | [place] [address] | | | PATHOLOGY | [address] | | | + + + + + documented in this encounter Visit Diagnoses Not on filedocumented in this encounter"
--- OUTSIDE RECORDS SUMMARY | ~2018-11-09 | XMS | Encounter Summary ---
Demographics + + + | Address | [address] | | | [place] [address] | + + + | Home Phone [...] + +------+ + | Care Forge Shop Machine Repairer Name | Role | Phone | [...] + + | 07/24/ | Office | [facility] | Delfina Lambert, | Chronic Bilateral | | 2008 | Visit | [facility] Center at | ANP | Shoulder [facility] | | | | [facility] | | (Primary Dx); Spinal | | | | [address] | | Fusion Lumbar spine | | | | Mail Code: CH15P | | ; LBP (Low Back | | | | [place] [facility] | | Pain); Osteopenia; | | | | and Healing, | | Fibromyalgia | | | | Floor [place], [place] | | syndrome 729.1; | | | | [address] | | Major Depressive | | | | [phone] | | Disorder, Recurrent | | | | | | Episode, Moderate | | | | | | ([facility]); Adjustment | | | | | | [...] Belinda Meehan is a 48 y.o. female [facility] Return [...] drawing has be completed, which I reviewed. [facility] Brief Pain Inventory: (ten= worst possible pain [...] and omentum to the pelvic floor on 7/14/200 8 for a 2 year h/o abdominal [...] 300 mg) by oral route once daily cealhsfsrr-miwjwrimevnsh-hfcdexup (FIORICET) 50-325-40 mg Oral Tablet take 2 [...] 278 01/18 Paniculectomy Hx lumbar fusion 05/2008 L1-F3jhmqjs with bone spur removals Family History Problem [...] plain x rays of bilateral shoulders, today [facility] building third floor, I reviewed the [...] COMPRE[facility] Mail code CH 4P [place] [facility] [address] [place] [address] Ailyn Bello - 02/2009 3:13 PM PSTCMA History: PMH/PSH/SH/ review 1. Has your [...] supraspinatus | | | | | | tendon. Glenohumeralj | | | | | | oint space appears | | | | | | normal. There is mild | | | | [...] | | | | | | appear | | | | | | normal. Thebones are | | | | | | intact without fracture | | | | | | or focal | | | | | | destruction. Soft | | | | | | tissuesappear | | | | | | [...]
--- OUTSIDE RECORDS SUMMARY | ~2018-11-09 | XMS | Encounter Summary ---
Demographics + + + | Address | [address] | | | [place] [address] | + + + | Home Phone [...] Providers + +------+ + | Care Pocket Setter Lockstitch Name | Role | Phone | [...] as of this encounter Progress Notes Interface, Spice Miller Hammer Mill In - 12/09/2005 2:08 AM PDT [id number] [place]NI [place] [id number] Clinic Date: 11/26/2005 Clinic: General Surgery Clinic [...] with extensive workup. Prescription picked up at [facility] on November 25, 2005, for 50 oxycodone 5 mg. Melisa Thorne / SHARIF [id number] / [id number] / [id number] / [id number] Electronically signed by Kenisha Melton 12-05-2005 08:28:34 PM documented i n this encounter Plan of Treatment Not on filedocumented as of this encounter Visit Diagnoses Not on filedocumented in this encounter"
--- OUTSIDE RECORDS SUMMARY | ~2018-11-09 | XMS | Encounter Summary ---
Demographics + + + | Address | [address] | | | [place] [address] | + + + | Home Phone [...] Team Providers + +------+ + | Care Specification Manager Name | Role | Phone | [...] | | | Metabolism | bypass | [address] | [address] | | | | | Hypovitamino | [address], | Ave | | | | | sis D B12 | [address] | [place], [place] | | | | | nutritional | [place], [place] | [address] | | | | | deficiency | [address] | Phone: | | | | | Other | Phone: | [phone] | | | | | protein-jose manuel | [phone] | Fax: | | | | | nick | Fax: | [phone] | | | | | malnutrition | [phone] | | | | | | Weight | | | | | | | gain | | | | | | | Procedures | | | | | | | CONSULT TO | | | | | | | ENDO | | | | | | | [address] | | | | | | | [address] | | | +--------+--------+ + + + [...] | | | [facility] | [place], [place] | Dx); Hypothyroidism; | | | | Pavilion [address] | [address] | Essential | | | | [facility] | [phone] | hypertension 401.[address]; | | | | Road [facility] | | Fibromyalgia | | | | [facility] | | syndrome 729.1 | | | | Pavilion [place], | | | | | | [place] [address] | | | | | | [phone] | | | +--------+---------+ + + + [...] Hives Mainly in the legs Clindamycin Codeine Exazaxc-Swqxwwrqsj-Sas-Caff Balance problems Fioricet W/Codeine (Mgpgqtotas-Brasdcczsa-Kci-Cod) Keflex (Cephalexin) Morphine IM ( only in [facility]) made gut pain worse 08/27/06: Trial [...] U/L 41 ANION GAP 8 VITAMIN B12, [id number] pg/ml >2000 (H) HEMOGLOBIN A1C <=5.6 % [...] SERUM 15.0-85.0 pg/ml 222.9 (H) VITAMIN B12, [id number] pg/ml > 2000 HEMOGLOBIN A1C <=5.6 % [...]
--- OUTSIDE RECORDS SUMMARY | ~2018-11-09 | XMS | Encounter Summary ---
Demographics + + + | Address | [address] | | | [place] [address] | + + + | Home Phone [...] Team Providers + +------+ + | Care Oncology Nurse Navigator Name | Role | Phone | + [...] [address] [place] | | | | | [facility] | | | | | | [place] [address] | [address] | | | | | [address] [place] | [phone] | | | | | Road Mailcode: | | | | | | [id number] Physicians | | | | | | [place], | | | | | | [place] [address] | | | | | | [phone] | | | +--------+--------+ + + + [...]
--- OUTSIDE RECORDS SUMMARY | ~2018-11-09 | XMS | Encounter Summary ---
Demographics + + + | Address | [address] | | | [place] [address] | + + + | Home Phone [...] Providers + +------+ + | Care Field Research Assistant Name | Role | Phone | [...] as of this encounter Progress Notes Interface, Lot Worker In - 01/11/2005 6:26 PM PDTClinic Date: [...] bypass surgery. Dwaine Al M.D. LEDY / [id number] / [id number] / [id number] / Tdocumented in this encounter Plan of Treatment Not on filedocumented as of this encounter Visit Diagnoses Not on filedocumented in this encounter"
--- OUTSIDE RECORDS SUMMARY | ~2018-11-09 | XMS | Encounter Summary ---
Demographics + + + | Address | [address] | | | [place] [address] | + + + | Home Phone [...] Providers + +------+ + | Care Construction Worker Name | Role | Phone [...] as of this encounter Progress Notes Interface, Ditching Machine Operator In - 10/30/2005 2:06 AM PDT [id number] GEOVANNI Barnes [id number] Clinic Date: 10/23/2005 Clinic: Ms. Meehan comes in today for followup of her abdominal CT. The CT is normal. We will follow her for abdominal pain. I will see her again in 3 months. If she has exacerbation, she can come earlier. I also gave her 30 tablets of 5 mg oxycodone for the pain. Chris Padgett M.D. CD / [id number] / [id number] / [id number] / Electronically signed by Chris Padgett 10-29-2005 10:10:39 AM documented i n this encounter Plan of Treatment Not on filedocumented as of this encounter Visit Diagnoses Not on filedocumented in this encounter"
--- OUTSIDE RECORDS SUMMARY | ~2018-11-09 | XMS | Encounter Summary ---
Demographics + + + | Address | [address] | | | [place] [address] | + + + | Home Phone [...] Providers + +------+ + | Care Estate And Trust Tax Principal Name | Role | Phone | + [...] | | | Mychal Kovacs Mailcode: | [facility] | | | | | [address] for | [place], [place] | | | | | Health and Healing, | [address] | | | | | 6th [facility], | [phone] | | | | | [place] [address] | | | | | | [phone] | | | +--------+--------+ + + + [...]
--- OUTSIDE RECORDS SUMMARY | ~2018-11-09 | XMS | Encounter Summary ---
Demographics + + + | Address | [address] | | | [place] [address] | + + + | Home Phone [...] Team Providers + +------+ + | Care Coverage Specialist Name | Role | Phone | [...] as of this encounter Progress Notes Interface, Public Health Registrar In - 10/15/2005 2:06 AM PDT [id number] GEOVANNI Barnes Clinic Date: 09/18/2005 Clinic: Ms. [...] about a month. Chris Padgett M.D. / [id number] / [id number] / [id number] / [id number] Electronically signed by Chris Padgett 10-14-2005 08:13:46 AM documented i n this encounter Plan of Treatment Not on filedocumented as of this encounter Visit Diagnoses Not on filedocumented in this encounter"
--- OUTSIDE RECORDS SUMMARY | ~2018-11-09 | XMS | Encounter Summary ---
Demographics + + + | Address | [address] | | | [place] [address] | + + + | Home Phone [...] Team Providers + +------+ + | Care Tactical Air Control Party Manager Name | Role | Phone | [...] [address] | | | | | [address] | [place], [place] | | | | | Health and Healing, | [address] | | | | | 6th floor [place], | [phone] | | | | | [place] [address] | | | | | | [phone] | | | +--------+ + + + [...]
--- OUTSIDE RECORDS SUMMARY | ~2018-11-09 | XMS | Encounter Summary ---
Demographics + + + | Address | [address] | | | [place] [address] | + + + | Home Phone [...] Team Providers + +------+ + | Care Remotely Piloted Vehicle Controller Name | Role | Phone | [...] of this encounter Progress Notes Interface, Lead Refiner In - 02/17/2006 3:04 AM [facility] [place] [address] [place], [place] [address] or October 02, 2001 Pedrito Gutierrez M.D. [facility] [address] [place] [address] RE: BELINDA GALARZA MR #: [id number] Dear Dr. 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 Sincerely, Issac Meeks M.D. laundry aid, Division of Endocrinology, Diabetes, and Clinical Forging Die Finisher, Metabolic Disorders Clinic Ph#: [phone] [facility] / [id number] / [id number] / [id number] / C: 10/13/2001 praful [id number] signed by Interface, Lead Refiner In at 02/17/2006 3:04 AM [facility]ed in this encounter Plan of Treatment Not on filedocumented as of this encounter Visit Diagnoses Not on filedocumented in this encounter"
--- OUTSIDE RECORDS SUMMARY | ~2018-11-09 | XMS | Encounter Summary ---
Demographics + + + | Address | [address] | | | [place] [address] | + + + | Home Phone [...] Team Providers + +------+ + | Care Developer Advocate Name | Role | Phone | [...] | Metabolism | | | [address] | | | | | | | [employer] | | | | | | | Physicians | | | | | | | Pavilion | | | | | | | Physicians | | | | | | | Pavilion | | | | | | | [place], [place] | | | | | | | [address] | | | | | | | Phone: | | | | | | | [phone] | | | | | | | Fax: | | | | | | | [phone] | +--------+--------+ + + + + Encounter Details +--------+---------+ + + + | Date | Type | Department | Care Team | Description | +--------+---------+ + + + | 08/23/ | Office | Kraig Turner | Beto Meeks MD | Osteopenia (Primary | | 2008 | Visit | Diabetes Health | [address] | Dx); Hypothyroidism; | | | | [facility] | [place], [place] | Metabolic syndrome | | | | [facility] [address] | [address] | X 250.80; Essential | | | | [address] | [phone] | hypertension [address]; | | | | Road [facility] | | Fibromyalgia | | | | [facility] | | syndrome 729.1 | | | | Pavilion [place], | | | | | | [place] [address] | | | | | | [phone] | | | +--------+---------+ + + + [...] 08/24/2007 1:39:05 P M Modules accepted: Orders eBto Meeks - 08/24/2007 1 :32 PM PDT [...] knee replacement do ne on 08/30/[address] [place] [address] Vasquez. Patient Active Problem List [...] by oral route once daily at bedti la as needed Oxycodone HCl (OXYCONTIN) 40 mg [...]
--- OUTSIDE RECORDS SUMMARY | ~2018-11-09 | XMS | Encounter Summary ---
Demographics + + + | Address | [address] | | | [place] [address] | + + + | Home Phone [...] Providers + +------+ + | Care Logistics Coordinator Name | Role | Phone | [...] as of this encounter Progress Notes Interface, Mill Beam Fitter In - 01/11/2005 5:17 PM PDT [place] [facility] [address] [place] [address] or June 26, 2003 Pedrito Gutierrez M.D. [address] [place] [address] RE: BELINDA MEEHAN MR #: [id number] Dear Dr. Gutierrez: I had the pleasure of seeing your patient, Ms. Belinda Meehan, today in the [facility] Division of Rheumatology Clinic. She [...] Sincerely, Sesar Nash M.D. NURIA / SHARIF [id number] / [id number] / [id number] / [id number] cc: Kelley Alegre [address] [place] [address] FAX: [phone] signed by Interface, Mill Beam Fitter In at 01/11/2005 5:17 PM PDTdocumented in this encounter Plan of Treatment Not on filedocumented as of this encounter Visit Diagnoses Not on filedocumented in this encounter"
--- OUTSIDE RECORDS SUMMARY | ~2018-11-09 | XMS | Encounter Summary ---
Demographics + + + | Address | [address] | | | [place] [address] | + + + | Home Phone [...] + +------+ + | Care Spot Welder Name | Role | Phone | [...] of this encounter Progress Notes Interface, Director Appointment In - 03/26/2006 1:05 AM [facility] [place] [address] [place], [place] [address] or February 22, 2001 Pedrito Gutierrez M.D. [facility] [address] [place] [address] RE: BELINDA MEEHAN MR #: [id number] Dear [...] regarding this patient. Sincerely, Issac Meeks M.D. school secretary Division of Endocrinology, Diabetes, and Clinical Handicraft Or Hobby Shop Manager, Metabolic Disorders Clinic PBD / HS [id number] / [id number] / [id number] / [id number] signed by Interface, Director Appointment In at 03/26/2006 1:05 AM PDTdocume nted in this encounter Plan of Treatment Not on filedocumented as of this encounter Visit Diagnoses Not on filedocumented in this encounter
--- OUTSIDE RECORDS SUMMARY | ~2018-11-09 | XMS | Encounter Summary ---
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 [id number] Start of Care: 06/23/2006 Referring Provider: [...] and when she is finished at the [facility] with physical therapy advised to [...] + + +--------+ + + | CO THERAPEUTIC | Procedures | Routin | Spondylosis [...]
--- OUTSIDE RECORDS SUMMARY | ~2018-11-09 | XMS | Encounter Summary ---
Demographics + + + | Address | [address] | | | [place] [address] | + + + | Home Phone [...] Organization | [facility] | | | and Jairana | [...] Providers + +------+ + | Care Nursing Information Systems Coordinator Name | Role | Phone | [...] + + | 08/19/ | Telephone | [facility] | Alanis, | Cold-like Symptoms | | 2019 | | MEDICINE [address] [place] [address] | MD [place] | | | | | [facility] | [address] [place] [address] | | | | | [place] [address] | [place] [address] | | | | | [phone] | [phone] | | | | | | | [...] | | | | | | [address] [place] [address] [place] | | | | | | [place] [address] | | | | | | [phone] | | | | | | | | +--------+---------+ + + + documented as of this encounter Visit Diagnoses Not on filedocumented in this encounter"
--- OUTSIDE RECORDS SUMMARY | ~2018-11-09 | XMS | Encounter Summary ---
Demographics + + + | Address | [address] | | | [place] [address] | + + + | Home Phone [...] Providers + +------+ + | Care Truck Hopper Name | Role | Phone | + [...] 08/12/ | Office | Pain Center at [facility] | Lukasz Charles, | Major Depressive | | 2006 | Visit | 15th Floor [address] | PhD [address] | Disorder, Recurrent | | | | [address] Mail | Ave [place], [place] | Episode, Moderate | | | | Code: [facility] | [address] | ([facility]); Neck Pain; | | | | for Health and | [phone] | Migraine Headache; | | | | Healing, 15th Floor | | Spondylosis with | | | | [place], [place] | | Myelopathy, Lumbar | | | | [address] | | Region; Adjustment | | | | [phone] | | Disorder with | | | [...] is making an effort to improve. Diagnosis: Barrow I: 1. (296.32) Major depressive disorder, recurrent, moderate. 2. (309.24) Adjustment disorder with anxiety. 3. 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 Barrow II: Deferred Barrow III: abdominal pain, migraine headache, low back pain. Barrow IV: low finances Barrow V: GAF 50 Plan: Return in 2 weeks. Check pacing, relaxation, activity, distraction. Ask about coping with previous headache. Continue cognitive/behavioral therapy. Total time spent with patient was approximately 45 minutes. LUKASZ CHARLES [facility] [[email or web address]] Pain Center [facility], [address]th [place] [address] documented in this encount er Plan of [...]
--- OUTSIDE RECORDS SUMMARY | ~2018-11-09 | XMS | Encounter Summary ---
Demographics + + + | Address | [address] | | | [place] [address] | + + + | Home Phone [...] Providers + +------+ + | Care Police Records Clerk Name | Role | Phone | [...] | Registratio | Sara Hartley | [address] [facility] | | | | n | [facility] Mailcode: | [address] | | | | | [address] [place], [place] | [place], [place] | | | | | [address] | [address] | | | | | [phone] | [phone] | | | | | | | [...] | | + +---------+ + + | [facility] DEPARTMENT OF | | | | | RADIOLOGY | | | | + +---------+ + + documented in this encounter Visit Diagnoses Not on filedocumented in this encounter"
--- OUTSIDE RECORDS SUMMARY | ~2018-11-09 | XMS | Encounter Summary ---
Demographics + + + | Address | [address] | | | [place] [address] | + + + | Home Phone [...] Providers + +------+ + | Care Food Manager Name | Role | Phone | [...] + | 09/01/ | Telephone | Orthopaedics at | Angel Morales | Other | | 2006 | | [facility] [address] Maier MD,PhD [address] | | | | | Bethanie Mailcode: CH12A | [address] | | | | | [facility] | [place], [place] | | | | | and Healing, | [address] | | | | | Floor [place], [place] | [phone] | | | | | [address] | | | | | | [phone] | | | +--------+ + + + [...]
--- OUTSIDE RECORDS SUMMARY | ~2018-11-09 | XMS | Encounter Summary ---
Demographics + + + | Address | [address] | | | [place] [address] | + + + | Home Phone [...] Providers + +------+ + | Care Field Automobile Adjuster Name | Role | Phone | [...] of this encounter Progress Notes Interface, Paper Baler In - 08/22/2005 2:06 AM PST [id number] [facility] Date: 07/31/2005 Clinic: Surgery [...] exploratory laparotomy. Plan: Emergency supply approved by [facility] in [place]. Quantity 35 was requested and will be filled. I will send a prescription for 40 additional oxycodone 5 mg. The patient will be seen in clinic in one week. Melisa Thorne / SHARIF [id number] / [id number] / [id number] / [id number] Electronically signed by Kenisha Melton 08-21-2005 07:00:10 PM documented corrie cortes this encounter Plan of Treatment Not on filedocumented as of this encounter Visit Diagnoses Not on filedocumented in this encounter"
--- OUTSIDE RECORDS SUMMARY | ~2018-11-09 | XMS | Encounter Summary ---
Demographics + + + | Address | [address] | | | [place] [address] | + + + | Home Phone [...] Providers + +------+ + | Care Brick And Block Mason Name | Role | Phone | [...] [address] | | | | | [facility] | [address] | | | | | Mailcode: L223A | [place], [place] | | | | | Physicians [address]armila | [address] | | | | | [address] [place], | [phone] | | | | | [place] [address] | | | | | | [phone] | | | +--------+ + + + [...] + + + | [facility] | [address] | [place] [address] | | | LABORATORY | | | [...] DEPARTMENT OF | [address] | [place] [address] | | | PATHOLOGY | [address] | | | + + + + + | [facility] | [address] | [place] [address] | | | PATHOLOGY | [address] | | | + + + + + documented in this encounter Visit Diagnoses Not on filedocumented in this encounter"
--- OUTSIDE RECORDS SUMMARY | ~2018-11-09 | XMS | Encounter Summary ---
Demographics + + + | Address | [address] | | | [place] [address] | + + + | Home Phone [...] Team Providers + +------+ + | Care Burner Hand Name | Role | Phone | + +------+ + | Pedrito Gutierrez MD | PCP | | + +------+ + Encounter Details +--------+ + + + + | Date | Type | Department | Care Team | Description | +--------+ + + + + | 12/09/ | Documentati | Anesthesiology | Unknown . | | | 2004 | on | [address] | | | | | | [place] | | | | | | [place], [place] | | | | | | [address] | | | +--------+ + + + [...] | Patient: BELINDA MEEHAN J Med Rec: [id number] Sex F Bdate: 1960 | | Date/Time Data | | Entered Into [facility] | | Anesth PostOp | | Surgery Date [id number] 12/09/04 10:30 | | [id number] 11/23/03 10:57 | | Anesthesiologist SYEDA ANDREWS [...]
--- OUTSIDE RECORDS SUMMARY | ~2018-11-09 | XMS | Encounter Summary ---
Demographics + + + | Address | [address] | | | [place] [address] | + + + | Home Phone [...] Team Providers + +------+ + | Care Treer Name | Role | Phone | + [...] | | | [facility] | [place], [place] | | | | | [address] | [address] | | | | | [address] [place] | [phone] | | | | | Road Mailcode: | | | | | | [id number] Physicians | | | | | | [place], | | | | | | [place] [address] | | | | | | [phone] | | | +--------+ + + + [...]
--- OUTSIDE RECORDS SUMMARY | ~2018-11-09 | XMS | Encounter Summary ---
Demographics + + + | Address | [address] | | | [place] [address] | + + + | Home Phone [...] Providers + +------+ + | Care Licensed Master Social Worker Name | Role | Phone | + +------+ + | Sulaiman Carrera MD | PCP | Unavailable | + +------+ + Reason for Visit +--------+ + | Reason | Comments | +--------+ + | GLF | | +--------+ + Encounter Details +--------+ + + + + | Date | Type | Department | Care Team | Description | +--------+ + + + + | 08/09/ | Emergency | [facility] | | | | 2013 | | Department [address] | | | | | | [address] | | | | | | [facility] | | | | | | [place] [address] | | | | | | [phone] | | | +--------+ + + + [...] + + + | Blood Pressure | 120/63 | 08/09/2013 4:27 PM | | | | | PST | | + + + + + | Pulse | 67 | 08/09/2013 4:27 PM | | | | | PST | | + + + + + | Temperature | 36.7 C (98.1 F) | 08/09/2013 4:27 PM | | | | | PST | | + + + + + | Respiratory Rate | 15 | 08/09/2013 4:27 PM | | | | | PST | | + + + + + | Oxygen Saturation | 99% | 08/09/2013 4:27 PM | | | | | PST | | + + + + + | Inhaled Oxygen | - | - | | | Concentration | | | | + + + + + | Weight | 72.6 kg (160 lb) | 08/09/2013 4:27 PM | | | | | PST | | + + + + + | Height | - | - | | + + + + + | Body Mass Index | 24.33 | 08/09/2013 2:50 PM | | | [...]
--- OUTSIDE RECORDS SUMMARY | ~2018-11-09 | XMS | Encounter Summary ---
Demographics + + + | Address | [address] | | | [place] [address] | + + + | Home Phone [...] Team Providers + +------+ + | Care Archeology Faculty Member Name | Role | Phone [...] as of this encounter Progress Notes Interface, Fermentologist In - 08/19/2005 2:05 AM PST [id number] [facility] Date: 07/24/2005 Clinic: Hematology Clinic Referring [...] full and complete summary. Lukasz Sellers M.D. plisse machine operator TGD / [id number] / [id number] / [id number] / [id number] cc: Pedrito Gutierrez M.D. .. [address] [address] Electronically signed by Lukasz Sellers 08-18-2005 01:28:24 PM documented i n this encounter Plan of Treatment Not on filedocumented as of this encounter Visit Diagnoses Not on filedocumented in this encounter"
--- OUTSIDE RECORDS SUMMARY | ~2018-11-09 | XMS | Encounter Summary ---
Demographics + + + | Address | [address] | | | [place] [address] | + + + | Home Phone [...] Team Providers + +------+ + | Care Appraisal Manager Name | Role | Phone | [...] + + | 07/30/ | Office | [facility] Comprehensive | Delfina Molina, | Cervical Spondylosis | | 2006 | Visit | Pain Center at | ANP | without Myelopathy | | | | [facility] | | (Primary Dx); Right | | | | [address] | | shoulder rotator | | | | Mail Code: CH15P | | cuff strain; | | | | [facility] | | Spondylosis with | | | | and Healing, | | Myelopathy, Lumbar | | | | Floor [place], [place] | | Region; Herniated | | | | [address] | | Lumbar | | | | [phone] | | Intervertebral Disc | | | | | | L4-5; Migraine | | | [...] Belinda Meehan is a 46 y.o. female [facility] Center Return Visit Chief Complaint: [...] these have helped improve function but not nursing home, and she reports sleeping poorly due to pain disru ption since prior visit. Since prior visit she had a 06/24/06: Bone density study and her T-Score -1.2 lumbar spine a nd -2.2 proximal femur. Collection Information Collection Date Collection Time Resulting Agency 03/10/2006 2:42 PM [facility] DEPARTMENT OF PATHOLOGY Component Results Component Value Range Status CALCIUM (LAB) 9.5 8.5 - 10.5 mg/dL Fin SPINE LUMBAR 2 VIEWS AT 1421 HOURS LUMBAR SPINE, 10/01/05 HISTORY: Back pain. FINDINGS: AP and lateral views of the lumbar spine show five gmp-jme-xpleeiq lumbar vertebrae in normal alignment with no [...] spent in reviewing of chart, imaging and investment counselor ing/coordindation of care. 1. For the [...] appropriate care and safety for your patient, [facility] Pain Center r equires a primary [...] Please indicate and fax your response to [phone]. I called and left a message on Dr Jarrett Evans general voice mail requesting he call me to discuss prescribing and patient care. DELFINA MOLINA [facility] Center Mail code CH 4P [facility] [address] [facility] [address] Tasha Michelle - 07/30/2006 7:35 AM PSTCMA History: PMH/PSH/SH/FH [...] | | | | CERVICAL, 3 | MARINA, | | | | | VIEWS | MDSTUDY: Cervical | | | | | | spine, AP, lateral, and | | | | | | odontoid views. | | | | | | DATE: 07/30/2006 | | | | | | COMPARISON: NONE | | | | | | FINDINGS: There is mild | | | | | | disc space narrowing at | | | | | | C3-4 through | | | | | | C6-7. There isno | | | | | | significant | | | | | | uncovertebral | | | | | | spurring. The facets | | | | | [...]
--- OUTSIDE RECORDS SUMMARY | ~2018-11-09 | XMS | Encounter Summary ---
Demographics + + + | Address | [address] | | | [place] [address] | + + + | Home Phone [...] Team Providers + +------+ + | Care Dehydrator Tender Name | Role | Phone | [...] | PPV [address] | ENGINEERING INSPECTION ASSISTANT | Disc Disease; | | | | [facility] | | Fibromyalgia | | | | [facility] | | | | | | [place], [place] | | | | | | [address] | | | | | | [phone] | | | +--------+---------+ + + + [...] the LBP is gone. Dr. Ricky smith Seadrift was her surgeon. She think s a [...] 300 mg) by oral route once daily lcvnxufeud-xhoiwobqpcrqz-duoqncwz (FIORICET) 50-325-40 mg Oral Tablet take 2 [...]
--- OUTSIDE RECORDS SUMMARY | ~2018-11-09 | XMS | Encounter Summary ---
Demographics + + + | Address | [address] | | | [place] [address] | + + + | Home Phone [...] Providers + +------+ + | Care Outbound Sales Representative Name | Role | Phone [...] TRACE Kovacs | | | | | [facility] | [place], [place] | | | | | [address] | [address] | | | | | [address] | [phone] | | | | | Road Physicians | | | | | | [facility] | | | | | | [facility] [place], | | | | | | [place] [address] | | | | | | [phone] | | | +--------+ + + + [...]
--- OUTSIDE RECORDS SUMMARY | ~2018-11-09 | XMS | Encounter Summary ---
Demographics + + + | Address | [address] | | | [place] [address] | + + + | Home Phone [...] Team Providers + +------+ + | Care Will Call Clerk Name | Role | Phone | [...] as of this encounter Progress Notes Interface, Trim Stencil Maker In - 01/12/2005 6:20 AM PDT JenniferBelinda garner [id number] MED REC NUMBER: [id number] NAME : Belinda Meehan DATE : 1960 DISCHARGE ASSESSMENT AND CASE MANAGEMENT NOTES Chart Reviewed: 2004-12-04 15:29:00 [employer] Sprayer: Lou Jordan RN Preadmission living situation: family If facilty, name: Additional needs assessment: Case Management Initial Assessment and Ongoing Notes: 12/04/2004 15:29 Rec'd referral from IR printout. Pt presenti jen for panniculectomy per Dr. Chris Padgett 12/06/2004. ----- ------- Living Situation: Pt lives w/ her son, Sree in [place], [place]. Pt also has a caregiver from [employer] [facility] come in for 8-9 hours per day when her son is not home. Transportation: Pat w/ [facility] will take pt home (H) (C). Home Health: Pt has an RN from [employer] [facility] visit once a month for an assesment (H) or (C). Medical Equipment: Pt states that she has forearm crutches, a shower chair, and is working on getting hand bars installed into her shower. ---- Co-Morbidities: Panniculitis, s/p gastric bypass, arthritis, asthma, NIDDM, GERD, HTN, and sleep apnea. ------ Providers: PCP is Dr. Pedrito Gutierrez in [facility] and Dr. William Meeks [facility] metabolic disorder clinic. Narrative: Pt asked [...] or concerns, [place] [id number] documented i n this encounter Plan of Treatment Not on filedocumented as of this encounter Visit Diagnoses Not on filedocumented in this encounter"
--- OUTSIDE RECORDS SUMMARY | ~2018-11-09 | XMS | Encounter Summary ---
Demographics + + + | Address | [address] | | | [place] [address] | + + + | Home Phone [...] Providers + +------+ + | Care Dental Laboratory Supervisor Name | Role | Phone [...] | Pain | Diagnoses | Emmy | Tumbler Tender Chh | | | | Management | | Taj[place], | [address] | | | | | Radiculopath | Sulaiman G, | Ave Mail | | | | | y, cervical | MD [address] | Code: CH15P | | | | | region Low | [address] | Center for | | | | | back pain | [place], | Health and | | | | | Fibromyalgia | [place] | Healing,[address] | | | | | [address] | [address] | Floor | | | | | disease, | Phone: | [place], [place] | | | | | bilateral | [phone] | [address] | | | | | Rheumatoid | Fax: | Phone: | | | | | arthritis, | [phone] | [phone] | | | | | unspecified | | Fax: | | | | | | | [phone] | | | | | Postlaminect | [...] + + | 02/05/ | Office | [facility] | Shalonda Garcia, | Post laminectomy | | 2017 | Visit | Pain Center at | FRESH MEAT GRADER [address] | syndrome (Primary | | | | [place] | Ave [place], [place] | Dx); Intractable | | | | [address] | [address] | chronic migraine | | | | Mail Code: [facility] | [phone] | without aura and | | | | [facility] | | with status | | | | and | | migrainosus; | | | | Floor [facility] [place] | | Fibromyalgia | | | | [address] | | | | | | [phone] | | | +--------+---------+ + + + [...] Instructions Kathleen Riley - 02/05/2017 1:35 PM PDTBrenda, It was good to meet you today. [...] Discuss with your PCP, a referral to [facility] for discussion regarding spinal cord stimulator Shalonda Mustafa DNP, FRESH MEAT GRADER-C Adult Pain Service /Comprehensive Pain Center [facility] [place] [address] documented in this encounter Progress Notes Jing Holloway - 02/05/2017 1:35 PM PDT Date: 02/05/2017 was referred for pain management consultation by Sulaiman Whitlock MD [address] [place] [address] Reason for consult: cervical radiculopathy, low back [...] by her primary care pr magdy in [facility]. This provider is currently in [...] patient at a pain cli brigida in [facility], however her insurance changed and she no longer has coverage at this clinic. She is hesitant to seek care with providers near her home in [place], citing a neg ative experience with a [...] able to perform routine tasks such as [employer]. She feels she is at the point where is not able to determine which medications are hel pful in improving her pain. She endorses incontinence symptoms. She reports there are "days I just want to " because her pain is so bad. 's treatment for this pain complaint has included: MEDICATIONS: - Gabapentin - [place]don - Butran - Cymbalta - Fentanyl Patches NON-MEDICATION THERAPIES: - Physical Therapy - Exercise - Heat/Ice - Pool Therapy - Brace/Support - TENS INTERVENTIONS: - Spinal surgery x3, Laminectomy unknown level - Epidural Steroid Injections - Trigger Point Injections lives in a single family home in [place], [place]. She is not currently working , she receives disability. As a result of her pain, notes multiple changes in her life, including limiting her ability to perform routine tasks. 's goals from today's appointment include: consultation only (advice only to you and your primary care physician), counseling, drug treatment, help in coping with the pain a nd stress management. NUB CARD TENDER Brief Pain Inventory: (ten= worst possible pain [...] pulmonary disease) (HCC) CVA (cerebral vascular accident) (HCC) Fibromyalgia 07/25/2008 Craniocervical junction appears stenotic in cervical extension. Headache HTN (hypertension) Hypothyroidism 11/11/2006 IBS (irritable bowel syndrome) Internal hemorrhoid Kidney stone Major depressive disorder, recurrent episode, moderate (HCC) 07/31/2006 Metabolic syndrome X 250.80 Metabolic syndrome X 250.80 Optic nerve hemorrhage left eye Other general symptoms Pneumonia PUD (peptic ulcer disease) RA (rheumatoid arthritis) ([facility]) Radiculitis, lumbosacral 03/03/2008 Reduced vision Scoliosis Sleep apnea Spondylosis with myelopathy, lumbar region 07/02/2006 Vertebral fracture T7,8,9 Xray T spine 2003 Past Surgical History Procedure Laterality Date Salpingo-oophorectomy Colonoscopy 03/2006 Tonsillectomy Pr d&c after delivery Pr inject trigger point, 1 or 2 Knee replacement 02/2007 Left knee Knee replacement 08/2007 right knee Lumbar fusion 05/2008, '11 & '12 L5-N9mfqfbx with bone spur removals Appendectomy Cholecystectomy section [...] Hives Mainly in the legs Clindamycin Codeine Sygmozz-Nfspmkhrwt-Oap-Caff Balance problems Fioricet W/Codeine [Wlknimzvin-Jmkoqnbrxy-Lpa-Cod] Keflex [Cephalexin] Ketorolac Unknown Morphine IM ( only in [facility]) made gut pain worse 08/27/06: Trial [...] and summary of old medical records (source: [facility]), as summarized in the body of the [...] by her primary care pr magdy in [facility]. She reports that this provider [...] Whitlock MD may consider a referral to [facility] for discu ssion regarding spinal cord stimulator -No follow up needed at this time 02/05/2017: Kathleen Pina am functioning as a clinical medical transcriptionist for JIMBO Dutta DNP-C I have reviewed and verified the above scribed note of my visit with this patient as record ed by Kathleen Riley. Shalonda Mustafa DNP, FNP-C Adult Pain Service /Comprehensive Pain Center [address] [place] [address] aris Riley MA - 02/05/2017 1:35 PM PDT Review [...]
--- OUTSIDE RECORDS SUMMARY | ~2018-11-09 | XMS | Encounter Summary ---
Demographics + + + | Address | [address] | | | [place] [address] | + + + | Home Phone [...] Team Providers + +------+ + | Care Estimator And Drafter Name | Role | [...] [address] | [address] [facility] | | | | | [facility] | [facility] | | | | | Mailcode: L223A | [place], [place] | | | | | Physicians [address] | [address] | | | | | [address] [place], | [phone] | | | | | [place] [address] | | | | | | [phone] | | | +--------+ + + + [...]
--- OUTSIDE RECORDS SUMMARY | ~2018-11-09 | XMS | Encounter Summary ---
Demographics + + + | Address | [address] | | | [place] [address] | + + + | Home Phone [...] Providers + +------+ + | Care Physical Therapist Assistant Name | Role | [...] | Pre-Operative | | | | Stay [address] | [place], [place] | Examination; HTN | | | | [facility] | [address] | (Hypertension); | | | | Mailcode: [id number] | [phone] | Chronic Pain | | | | Richa Doll | | | | | | [address] [facility] [place] | | | | | | [address] | | | | | | [phone] | | | +--------+---------+ + + + [...] restrictions or a bowel preparation. Your [facility] gical team will give you additional printed [...] PM please call your surgeons' office for [id number]. PARKING Parking for patients and visitors is available in the [facility] Parking structure located across from the emergency [...] ADVICE FOR DAY OF SURGERY: Remove nail montserratian from at least one fingernail (if applicable) [...] surgeries scheduled to take place [place] the [place] at the [facility]: Surgeries scheduled in the [facility] ([address] [place] [address]): registration is located on the 4th floor of [facility] (Day Surgery). Surgeries scheduled in the [facility]: registration is located on the 9th floor . For surgeries scheduled to take place at the [facility]: registration i s located on the 4th floor (Surgery Center). AVOID THESE MEDICATIONS FOR 7 DAYS BEFORE SURGERY PRODUCTS CONTAINING ASPIRIN Jacquelyn-[place], Anacin, Anexsia with Codeine, Len nos, Aspirin, Aspirin suppositories, Ascri ptin, Aspergum, Axotal, B-A-C, Baby Aspirin, Lucila, BC Powder, Bexophene, Buffaprin, Bufferi n, Buffinol, Cama-Arthritis Strength, Congespirin, [place], Coricidin, Damason, Darvon, Dristan , Anastasia-Gesic, Digel, Dolprin #3 Tablets, Donatab, Doxaphene, Duragesic, Easprin, Ecotrin, Dipika grin Forte, Emiprin, Emprazil, Equagesic, Equazine M, Excedrin, Fiogesic, Fiorgen PH, Fioric et, Fiorinal, 4-Way Cold Tablet Gemnisyn, Indocin, Liquprin, Lortab ASA, Magnaprin, Marnal, Meprobamate, Midol, Momentum, N orgesic, [place], Orphengesic, Pabalate, P-A-C, Percodan, Presalin, Robaxasil, Roxiprin, Bunny eto, Salocol SK-65 Compound, Sine-Aid, Sine-Off,, Greenlee, Supac, Talwin Compound, Trigesic, Tolectin , Traiminicin, Vanquish, ZORprin, Zomax PRODUCTS CONTAINING IBUPROFEN Advil, Aleve, Haltran, Medipren, Midol, Motrin, Naproxyn, Nuprin, Rufen OTHER PRODUCTS WHICH MAY PROMOTE BLEEDING Vitamin E, Gingko Biloba, Marine Fatty Acids, [place]-3 Fish Oil Supplements documented in this encounter [...] + + + + | [facility] | [address] [facility] [address] [facility] [facility] | [place] [address] | | | PATHOLOGY | [address] | | | + + + + + | [facility] DEPARTMENT OF | [address] | [place] [address] | | | PATHOLOGY | [address] | | | + + + + + INR (02/21/2009 1:22 PM PDT) + + + + + + | Component | Value | Ref Range | Performed | Pathologist | | | | | At | Signature | + + + + + + | INR | 1.02Comment: | 0.90 - 1.20 INR | [facility] | | | | INR | | [...] + + + + + | [facility] DEPARTMENT OF | [address] | [place] [address] | | | PATHOLOGY | [address] | | | + + + + + | [facility] DEPARTMENT OF | [address] | [place] [address] | | | PATHOLOGY | [address] [...] | | | DEPARTMENT | | | TURKS AND CAICOS ISLANDER | | | OF | | [...] + + + + | [facility] | [address] [facility] | [place] [address] | | | PATHOLOGY | [address] | | | + + + + + | [facility] | [address] [place] [address] | [place] [address] | | | PATHOLOGY | [address] [...] + + + + + | [facility] DEPARTMENT OF | [address] | [place] [address] | | | PATHOLOGY | [address] | | | + + + + + | [facility] DEPARTMENT OF | [address] | [place] [address] | | | PATHOLOGY | [address] [...] view image for the detailed interpretation from [employer] results. | CARDIOLOGY | | | | + + + + + + + + | Performing | Address | City/State/Zipcode | Phone Number | | Organization | | | | + + + + + | [facility] | [address] | [place], [place] | | | CARDIOLOGY | [address] | [address] | | + + + + + | [facility] | [address] | [place], [place] | | | CARDIOLOGY | [address] | [address] | | + + + + + [...]
--- OUTSIDE RECORDS SUMMARY | ~2018-11-09 | XMS | Encounter Summary ---
Demographics + + + | Address | [address] | | | [place] [address] | + + + | Home Phone [...] Team Providers + +------+ + | Care Valance Cutter Name | Role | Phone | [...] | | | | Clinical Nutrition | [place], [place] | | | | | [address] | [address] | | | | | [facility] | [phone] | | | | | Mailcode: OPC5 | | | | | | Outpatient Clinic | | | | | | [facility] | | | | | | [place] [address] | | | | | | [phone] | | | +--------+ + + + [...] + + + | [facility] | [address] | [place] [address] | | | LABORATORY | | | [...] | | | [facility] | | | | | | Laboratories. | | | | + + + + + + + + | Specimen | + + | | + + + + + + + | Performing | Address | City/State/Zipcode | Phone Number | | Organization | | | | + + + + + | [facility] | [address] | [place] [address] | | | LABORATORY | | | [...] | + + + + + | [facility] | [address] | [place] [address] | | | LABORATORY | | | [...] | | | SERUM | performed by [place] | | | | | | [facility] | | | | | | Laboratories. | | | | + + + + + + + + | Specimen | + + | | + + + + + + + | Performing | Address | City/State/Zipcode | Phone Number | | Organization | | | | + + + + + | [facility] | [address] | [place] [address] | | | LABORATORY | | | [...] DEPARTMENT OF | [address] | [place], [place] [address] | | | PATHOLOGY | [address] | | | + + + + + | [facility] | [address] | [place] [address] | | | PATHOLOGY | [address] | | | + + + + + documented in this encounter Visit Diagnoses Not on filedocumented in this encounter"
--- OUTSIDE RECORDS SUMMARY | ~2018-11-09 | XMS | Encounter Summary ---
Demographics + + + | Address | [address] | | | [place] [address] | + + + | Home Phone [...] Providers + +------+ + | Care Fuel Oil Truck Driver Name | Role | Phone [...] | | | | Jayce Mcrae | [facility] | | | | | Road Mailcode: | [place], [place] | | | | | [address] [facility] | [address] | | | | | [address] | [phone] | | | | | [place], [place] | | | | | | [address] | | | | | | [phone] | | | +--------+ + + + [...]
--- OUTSIDE RECORDS SUMMARY | ~2018-11-09 | XMS | Encounter Summary ---
Demographics + + + | Address | [address] | | | [place] [address] | + + + | Home Phone [...] as of this encounter Progress Notes Interface, Civil Engineer Land Development In - 01/21/2006 1:09 AM [facility] [place] [address], [place] [address] or March 15, 2002 Pedrito Gutierrez M.D. [facility] [address] [place] [address] RE: BELINDA MEEHAN MR #: [id number] Dear Dr. Gutierrez: I had the pleasure [...] to set her up to see a leasing consultant in Neurology or the [facility] [...] to contact me. Sincerely, Issac Meeks M.D. adult basic education manager Division of Endocrinology, Diabetes, and Clinical Four Slide Machine Setter of Metabolic Disorders Clinic [employer]zz / SHARIF [id number] / [id number] / [id number] / Tdocumented in this encounter Plan of Treatment Not on filedocumented as of this encounter Visit Diagnoses Not on filedocumented in this encounter"
--- OUTSIDE RECORDS SUMMARY | ~2018-11-09 | XMS | Encounter Summary ---
Demographics + + + | Address | [address] | | | [place] [address] | + + + | Home Phone [...] Providers + +------+ + | Care Float Phlebotomist Name | Role | Phone | + [...] + + + + | 07/24/ | Telephone | Kraig Turner | Beto Meeks MD | Lab Results | | 2012 | | [facility] | [address] | | | | | [facility] | [place], [place] | | | | | [place] [address] | [address] | | | | | Jayce Mcrae | [phone] | | | | | Road Physicians | | | | | | [facility] | | | | | | [facility], | | | | | | [place] [address] | | | | | | [phone] | | | +--------+ + + + [...]
--- OUTSIDE RECORDS SUMMARY | ~2018-11-09 | XMS | Encounter Summary ---
Demographics + + + | Address | [address] | | | [place] [address] | + + + | Home Phone [...] Team Providers + +------+ + | Care Temperature Regulator Pyrometer Name | Role | Phone | + [...] [address] | | | | | | [place], [place] | | | | | | [address] | | | | | | [phone] | | | +--------+ + + + [...]
--- OUTSIDE RECORDS SUMMARY | ~2018-11-09 | XMS | Encounter Summary ---
Demographics + + + | Address | [address] | | | [place] [address] | + + + | Home Phone [...] Author + + + | Author | [facility] | + + + | Organization | [facility] | + + + | Address [...] Providers + +------+ + | Care Customer Service Representative Teller Name | Role | Phone | [...] | | | | Clinical Nutrition | [place], [place] | | | | | [address] | [address] | | | | | [facility] | [phone] | | | | | Mailcode: OPC5 | | | | | | Outpatient Clinic | | | | | | [facility] | | | | | | [place] [address] | | | | | | [phone] | | | +--------+ + + + [...] | [facility] | [address] | [place] [address] | | | PATHOLOGY | [address] | | | + + + + + | [facility] | [facility] [address] | [place] [address] | | | PATHOLOGY | [address] | | | + + + + + documented in this encounter Visit Diagnoses Not on filedocumented in this encounter"
--- OUTSIDE RECORDS SUMMARY | ~2018-11-09 | XMS | Encounter Summary ---
Demographics + + + | Address | [address] | | | [place] [address] | + + + | Home Phone [...] Providers + +------+ + | Care Residential Advisor Name | Role | Phone | [...] | | | | | Clementina Winkler [place], | | | | | | [place] [address] | | | | | | [phone] | | +--------+ + + + + [...] | | | | | spaces are | | | | | | overlap. No fracture | | | | | | isnoted. Left knee | | | | | | findings: The knee is | | | | | | obliqued which limits | | | | | | thisexamination as the | | | | | | joint spaces are | | | | | | overlap. No fracture | | | | | | ispresent. IMPRESSION: | | | | | | 1. Limited | | | | | | examination due to | | | | | | patient positioning | | | | | | shows nodisplaced | | | | | | fracture. Recommend | | | | | | obtaining three views of | | | | | | each kneefor additional | | | | | [...] | | | | | aremaintained. No | | | | | | soft tissue swelling is | | | | | | present. 3 mm of | | | | | | ulnarminus variance is | | | | | | noted. Left wrist | | | | | | findings: There is no | | | | | | fracture. The joint | | | | | | spaces | | | | | | aremaintained. No | | | | | | soft tissue swelling is | | | | | | present. 3 mm of | | | | | | ulnarminus variance is | | | | | | noted. IMPRESSION: | | | | | | 1. No fracture and no | | | | | | radiographic evidence | | | | | | of | | | | | | inflammatoryarthropathy. [...] | | | | | | aremaintained. There | | | | | | is no soft tissue | | | | | | swelling. Left hand | | | | | | findings: There is no | | | | | | fracture. The joint | | | | | | spaces | | | | | | aremaintained. There | | | | | | is no soft tissue | | | | | | swelling. IMPRESSION: | | | | | | 1. Normal hands | | | | | | bilaterally without | | | | | | radiographic evidence | | | | | | ofinflammatory | | | | | | [...]
--- OUTSIDE RECORDS SUMMARY | ~2018-11-09 | XMS | Encounter Summary ---
Demographics + + + | Address | [address] | | | [place] [address] | + + + | Home Phone [...] + +------+ + | Care High School Foreign Language Tutor Name | Role | Phone | [...] + + | 07/24/ | Office | [facility] Comprehensive | Delfina Lambert, | Chronic Bilateral | | 2008 | Visit | Pain Center at | ANP | Shoulder Pain | | | | [facility] | | (Primary Dx); Spinal | | | | [address] | | Fusion Lumbar spine | | | | Mail Code: CH15P | | ; LBP (Low Back | | | | [place] [facility] | | Pain); Osteopenia; | | | | and Healing, | | Fibromyalgia | | | | Floor [place], [place] | | syndrome 729.1; | | | | [address] | | Major Depressive | | | | [phone] | | Disorder, Recurrent | | | [...] Belinda Meehan is a 48 y.o. female [facility] Comprehensive [...] drawing has be completed, which I reviewed. [facility] Brief Pain Inventory: (ten= worst [...] 300 mg) by oral route once daily acdqmujyns-bdtxqchriihbm-spbsgtgl (FIORICET) 50-325-40 mg Oral Tablet take 2 [...] 278 01/18 Paniculectomy Hx lumbar fusion 05/2008 L1-F3afkoxi with bone spur removals Family History Problem [...] plain x rays of bilateral shoulders, today [facility] building third floor, I reviewed the [...] PAIN CENTER Mail code CH 4P [facility] [address] [place] [address] Ailyn Bello - 02/2009 3:13 PM [...]
--- OUTSIDE RECORDS SUMMARY | ~2018-11-09 | XMS | Encounter Summary ---
Demographics + + + | Address | [address] | | | [place] [address] | + + + | Home Phone [...] + | Organization | [facility] | | | and Jairana [...] Team Providers + +------+ + | Care Tack Cleaner Name | Role | Phone | [...] + + | 09/13/ | Telephone | [facility] | Alanis, | Appointment | | 2019 | | MEDICINE [address] [place] [address] | MD [place] | | | | | [facility] | [address] [place] [address] | | | | | [place] [address] | [place] [address] | | | | | [phone] | [phone] | | | | | | | [...] [facility] VERONICA KAY | | | | | | [place] [address] | | | | | | [phone] | | | | | | | | +--------+---------+ + + + documented as of this encounter Visit Diagnoses Not on filedocumented in this encounter"
--- OUTSIDE RECORDS SUMMARY | ~2018-11-09 | XMS | Encounter Summary ---
Demographics + + + | Address | [address] | | | [place] [address] | + + + | Home Phone [...] Providers + +------+ + | Care Bar And Filler Assembler Name | Role | Phone | [...] | Center [address] | [address] [facility] | | | | | Mychal Kovacs Mailcode: | Naeem Mcrae | | | | | [address] for | [place], [place] | | | | | Health and Healing, | [address] | | | | | 6th floor [place], | [phone] | | | | | [place] [address] | | | | | | [phone] | | | +--------+ + + + [...]
--- OUTSIDE RECORDS SUMMARY | ~2018-11-09 | XMS | Encounter Summary ---
Demographics + + + | Address | [address] | | | [place] [address] | + + + | Home Phone [...] Team Providers + +------+ + | Care Rhic Systems Safety Engineer Name | Role | Phone | [...] as of this encounter Progress Notes Interface, Screwdown Operator In - 01/12/2005 8:09 AM PDT [id number] [facility] Date: 03/07/2004 Clinic: [facility] TELEPHONE CONVERSATION Subjective: Belinda contacted [...] cholelithiasis. She is welcome to come to [facility] for evaluation; however, given the distance of a 4-hour travel time, we found it would be more expeditious for her to be seen at her local hospital in [place]. The patient also agrees with this plan [...] additional followup as needed. Christie Kirkpatrick / [id number] / [id number] / [id number] / documented i n this encounter Plan of Treatment Not on filedocumented as of this encounter Visit Diagnoses Not on filedocumented in this encounter"
--- OUTSIDE RECORDS SUMMARY | ~2018-11-09 | XMS | Encounter Summary ---
Demographics + + + | Address | [address] | | | [place] [address] | + + + | Home Phone [...] Providers + +------+ + | Care Lap Hand Tool Name | Role | Phone | + [...] | Center [address] | [address] [facility] | | | | | Mychal Kovacs Mailcode: | Naeem Mcrae | | | | | [address] for | [place], [place] | | | | | Health and Healing, | [address] | | | | | 6th floor [place], | [phone] | | | | | [place] [address] | | | | | | [phone] | | | +--------+ + + + [...]
--- OUTSIDE RECORDS SUMMARY | ~2018-11-09 | XMS | Encounter Summary ---
Demographics + + + | Address | [address] | | | [place] [address] | + + + | Home Phone [...] Providers + +------+ + | Care Manual Tester Name | Role | Phone | [...] as of this encounter Progress Notes Interface, Voice Instructor In - 11/19/2005 3:09 AM PDT [facility] [address] [place] [address] or May 09, 2003 Pedrito Gutierrez M.D. [address] [place] [address] RE: BELINDA MEEHAN MR #: [id number] Dear Dr. Gutierrez: I had the pleasure [...] this testing done through your clinic in [place]. I will plan to see her again [...] regarding her condition. Sincerely, Issac Meeks M.D. honing machine operator production, Division of Endocrinology, Diabetes, and Clinical Surgical Oncologist, Metabolic Disorders Clinic PBD / [id number] / [id number] / [id number] / Tdocumented in this encounter Plan of Treatment Not on filedocumented as of this encounter Visit Diagnoses Not on filedocumented in this encounter"
--- OUTSIDE RECORDS SUMMARY | ~2018-11-09 | XMS | Encounter Summary ---
Demographics + + + | Address | [address] | | | [place] [address] | + + + | Home Phone [...] Team Providers + +------+ + | Care Server Security Administrator Name | Role | Phone | [...] | Pain | Diagnoses | Emmy | Steam Plant Operator Chh | | | | Management | [...] | | | | | [facility] | [address] | Floor | | | | | disease, | Phone: | [place], [place] | | | | | bilateral | [phone] | [address] | | | | | Rheumatoid | Fax: | Phone: | | | | | arthritis, | [phone] | [phone] | | | | | unspecified | | Fax: | | | | | | | [phone] | | | | | Postlaminect | [...] + + | 02/05/ | Office | [facility] | Shalonda Garcia, | Post laminectomy | | 2017 | Visit | Pain Center at | RESIDENT CAREGIVER [address] | syndrome (Primary | | | | [place] | Ave [place], [place] | Dx); Intractable | | | | [address] | [address] | chronic migraine | | | | Mail Code: [facility] | [phone] | without aura and | | | | [facility] | | with status | | | | and | | migrainosus; | | | | Floor [facility] [place] | | Fibromyalgia | | | | [address] | | | | | | [phone] | | | +--------+---------+ + + + [...] Discuss with your PCP, a referral to [facility] for discussion regarding spinal cord stimulator Shalonda Mustafa DNP, RESIDENT CAREGIVER-C Adult Pain Service /Comprehensive Pain Center [facility] [place] [address] documented in this encounter Progress Notes Jing Holloway - 02/05/2017 1:35 PM PDT Date: 02/05/2017 was referred for pain management consultation by Sulaiman Whitlock MD [address] [place] [address] Reason for consult: cervical radiculopathy, low back [...] by her primary care pr magdy in [facility]. This provider is currently in the process of re-opening a new clinic and may be available to see patients next month. She reports that this provider d oes not wish to continue prescribing her pain medication and has instructed her to find anot her provided to take over her pain prescriptions. She was previously a patient at a pain cli brigida in [facility], however her insurance changed and she no longer has coverage at this clinic. She is hesitant to seek care with providers near her home in [facility], citing a neg ative experience with [...] able to perform routine tasks such as [employer]. She feels she is at the point where is not able to determine which medications are hel pful in improving her pain. She endorses incontinence symptoms. She reports there are "days I just want to " because her pain is so bad. 's treatment for this pain complaint has included: MEDICATIONS: - Gabapentin - [place] - Butran - Cymbalta - Fentanyl Patches NON-MEDICATION THERAPIES: - Physical Therapy - Exercise - Heat/Ice - Pool Therapy - Brace/Support - TENS INTERVENTIONS: - Spinal surgery x3, Laminectomy unknown level - Epidural Steroid Injections - Trigger Point Injections lives in a single family home in [place], [place]. She is not currently working , she receives disability. As a result of her pain, notes multiple changes in her life, including limiting her ability to perform routine tasks. 's goals from today's appointment include: consultation only (advice only to you and your primary care physician), counseling, drug treatment, help in coping with the pain a nd stress management. 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 Brief Pain Inventory: (ten= worst possible [...] ulcer disease) RA (rheumatoid arthritis) ([facility]) Radiculitis, lumbosacral 03/03/2008 Reduced vision Scoliosis Sleep apnea Spondylosis with myelopathy, lumbar region 07/02/2006 Vertebral fracture T7,8,9 Xray T spine 2003 Past Surgical History Procedure Laterality Date Salpingo-oophorectomy Colonoscopy 03/2006 Tonsillectomy Pr d&c after delivery Pr inject trigger point, 1 or 2 Knee replacement 02/2007 Left knee Knee replacement 08/2007 right knee Lumbar fusion 05/2008, '11 & '12 L5-L2pulysh with bone spur removals Appendectomy Cholecystectomy section [...] Hives Mainly in the legs Clindamycin Codeine Ljmbmfl-Mqpzcftguy-Syi-Caff Balance problems Fioricet W/Codeine [Sqybmbyixj-Jqhvonhyhq-Mkt-Cod] Keflex [Cephalexin] Ketorolac Unknown Morphine IM ( only in [facility]) made gut [...] and summary of old medical records (source: [facility]), as summarized in the body of the [...] by her primary care pr magdy in [facility]. She reports that this provider does [...] Whitlock MD may consider a referral to [facility] for discu ssion regarding spinal cord stimulator -No follow up needed at this time 02/05/2017: Kathleen Pina am functioning as a medical administrative technician for JIMBO Dutta DNP-C I have reviewed and verified the above scribed note of my visit with this patient as record ed by Kathleen Riley. Shalonda Mustafa DNP, FNP-C Adult Pain Service /[facility] [address] [place] [address] aris Riley MA - 02/05/2017 1:35 PM [...]
--- OUTSIDE RECORDS SUMMARY | ~2018-11-09 | XMS | Encounter Summary ---
Demographics + + + | Address | [address] | | | [place] [address] | + + + | Home Phone [...] Team Providers + +------+ + | Care Solvent Mixer Name | Role | Phone | [...] | | | Mychal Kovacs Mailcode: | [facility] | | | | | [address] for | [place], [place] | | | | | Health and Healing, | [address] | | | | | [address] [facility], | [phone] | | | | | [place] [address] | | | | | | [phone] | | | +--------+--------+ + + + [...]
--- OUTSIDE RECORDS SUMMARY | ~2018-11-09 | XMS | Encounter Summary ---
Demographics + + + | Address | [address] | | | [place] [address] | + + + | Home Phone [...] Providers + +------+ + | Care Lime Spreader Name | Role | Phone | [...] + + | 11/23/ | Office | [facility] | Delfina Molina, | LBP (Low [...] | | | Center for [facility] | | Region; Fibromyalgia | | | | and | | syndrome 729.1; | | | | Floor [place], [place] | | Encounter for | | | | [address] | | Long-Term (Current) | | | | [phone] | | Use of Opioids; | | [...] Belinda Meehan is a 47 y.o. female [facility] Pain Center Return Visit Chief Complaint: [...] drawing has be completed, which I reviewed. [facility] Brief Pain Inventory: Right Now: 9 [...] Result Impression NAME: BELINDA MEEHAN MR #: [id number] DATE OF EXAM: [id number] PHYSICIAN: EMMA ROJAS [...] DISK BULGE. Transcribed By: Armaan Mata : [id number] : 1442 Approved By: Radiologist: Physical Examination: [...] seeing Nathalia Arora PT here at the [facility] to address her back [...] vs Hernia. 6. PT here at the [facility] available 7. Repeat TESI as needed. DELFINA MOLINA [facility] Mail code CH 4P [facility] and [address] [address] Ty Omalley - 9:12 AM [...]
--- OUTSIDE RECORDS SUMMARY | ~2018-11-09 | XMS | Encounter Summary ---
Demographics + + + | Address | [address] | | | [place] [address] | + + + | Home Phone [...] + +------+ + | Care Electrical Engineering Technologist Name | Role | Phone | [...]
--- OUTSIDE RECORDS SUMMARY | ~2018-11-09 | XMS | Encounter Summary ---
Demographics + + + | Address | [address] | | | [place] [address] | + + + | Home Phone [...] Providers + +------+ + | Care Media Arts Professor Name | Role | Phone [...] | | | | Clinical Nutrition | [place], [place] | | | | | [address] | [address] | | | | | [facility] | [phone] | | | | | Mailcode: OPC5 | | | | | | Outpatient Clinic | | | | | | [facility] | | | | | | [place] [address] | | | | | | [phone] | | | +--------+ + + + [...] + + + | [facility] | [address] | [place] [address] | | | LABORATORY | | | [...] + + + | [facility] | [address] | [place] [address] | | | LABORATORY | | | [...] Blood Test performed by | | | [facility]. | | + + + + + + + + | Performing | Address | City/State/Zipcode | Phone Number | | Organization | | | | + + + + + | [facility] | [address] | [place] [address] | | | LABORATORY | | | | + + + + + documented in this encounter Visit Diagnoses Not on filedocumented in this encounter"
--- OUTSIDE RECORDS SUMMARY | ~2018-11-09 | XMS | Encounter Summary ---
Demographics + + + | Address | [address] | | | [place] [address] | + + + | Home Phone [...] +------+ + | Care Travel Registered Nurse Pacu Name | Role | Phone | + [...] as of this encounter Progress Notes Interface, Circular Knitter In - 07/03/2006 2:33 AM PST [id number] GEOVANNI SKELTON J [id number] Clinic Date: 06/24/2006 Clinic: Rheumatology Subjective: Belinda Meehan is a 46-year-old woman here for followup of fibromyalgia. She comes from [place] and is now also working with the [...] I will have a meeting soon with [facility] to start doing my films here, and [...] 2 months. Caitlin Rivera M.S., F.N.P. / [id number] / [id number] / [id number] / [id number] cc: [facility] Electronically signed by Caitlin Rivera 07-02-2006 11:27:56 AM documented in this encounter Plan of Treatment Not on filedocumented as of this encounter Visit Diagnoses Not on filedocumented in this encounter"
--- OUTSIDE RECORDS SUMMARY | ~2018-11-09 | XMS | Encounter Summary ---
Demographics + + + | Address | [address] | | | [place] [address] | + + + | Home Phone [...] Team Providers + +------+ + | Care Perl Software Engineer Name | Role | Phone [...] Banegas, | | | 2012 | | [place] [facility] [address] | GERMAN TEACHER [address] | | | | | [address] | , [facility] 350 | | | | | Mailcode: Center | [place], [place] | | | | | for Health and | [address] | | | | | [facility] 2 | [phone] | | | | | [place], [place] | | | | | | [address] | | | | | | [phone] | | | +--------+ + + + [...]
--- OUTSIDE RECORDS SUMMARY | ~2018-11-09 | XMS | Encounter Summary ---
Demographics + + + | Address | [address] | | | [place] [address] | + + + | Home Phone [...] Providers + +------+ + | Care Farm Management Teacher Name | Role | Phone | [...] [address] | [address] [facility] | | | | | [facility] | [facility] [place] [facility] | | | | | Mailcode: L223A | [place], [place] | | | | | Physicians [address]armila | [address] | | | | | [address] [place], | [phone] | | | | | [place] [address] | | | | | | [phone] | | | +--------+ + + + [...]
--- OUTSIDE RECORDS SUMMARY | ~2018-11-09 | XMS | Encounter Summary ---
Demographics + + + | Address | [address] | | | [place] [address] | + + + | Home Phone [...] Lab findings, | | 2007 | | [place] [address] | [address] | teaching, guidance, | | | | Mychal Kovacs Mailcode: | [address] | and counseling | | | | [facility] [place] for | [place], [place] | | | | | Health and Healing, | [address] | | | | | [facility] floor [place], | [phone] | | | | | [place] [address] | | | | | | [phone] | | | +--------+ + + + [...]
--- OUTSIDE RECORDS SUMMARY | ~2018-11-09 | XMS | Encounter Summary ---
Demographics + + + | Address | [address] | | | [place] [address] | + + + | Home Phone [...] Providers + +------+ + | Care Candy Separator Hard Name | Role | Phone | + [...] [address] | [address] | (Referral to | | | | Mychal Kovacs Mailcode: | [address] | Urologist) | | | | [facility] | [place], [place] | | | | | Health and Healing, | [address] | | | | | 6th floor [place], | [phone] | | | | | [place] [address] | | | | | | [phone] | | | +--------+ + + + [...]
--- OUTSIDE RECORDS SUMMARY | ~2018-11-09 | XMS | Encounter Summary ---
Demographics + + + | Address | [address] | | | [place] [address] | + + + | Home Phone [...] + +------+ + | Care Sales Planning Analyst Name | Role | Phone [...] | | ogy | Epigastric | T, CIVIL ENGINEERING SPECIALIST [address] | [address] | | | | | pain Status | [address] | [address] | | | | | post | AVE | [address] | | | | | bariatric | [place], [place] | Mailcode: | | | | | surgery | [address] | [address] | | | | | Procedures | | [place] | | | | | CONSULT TO | | [address] | | | | | GI PROCEDURE | | [place], | | | | | UNIT: EGD | | [place] [address] | | | | | | | Phone: | | | | | | | [phone] | | | | | | | Fax: | | | | | | | [phone] | +--------+--------+ + + + + Reason [...] | | | | | | [address] [facility] | | | | | | | [address] | | | | | | | Rd [place], | | | | | | | [place] | | | | | | | [address] | | | | | | | Phone: | | | | | | | [phone] | | | | | | | Fax: | | | | | | | [phone] | +--------+--------+ + + + + Encounter Details +--------+---------+ + + + | Date | Type | Department | Care Team | Description | +--------+---------+ + + + | 08/28/ | Office | Digestive Health | Chris Padgett, | Epigastric Pain | | 2008 | Visit | [place] [address] | [address] | (Primary Dx); Status | | | | [address] [place] Mailcode: | [address] | Post Bariatric | | | | [facility] Center for | [place], [place] | Surgery | | | | Health and Healing, | [address] | | | | | 6th floor [place], | [phone] | | | | | [place] [address] | | | | | | [phone] | | | +--------+---------+ + + + [...] + + +--------+ + + | [facility] | Procedures | Routin | [...] Performed At | + + + | [id number] Estimated GFR > 60 mL/min/1.73 sq m if non- | [facility] | | Singaporean [id number] Estimated GFR > 60 mL/min/1.73 sq m if | DEPARTMENT OF | | Singaporean GFR is estimated using the MDRD equation [...] | [facility] | [address] [facility] | [place] [address] | | | PATHOLOGY | [address] | | | + + + + + | [facility] | [address] | [place] [address] | | | PATHOLOGY | [address] | | | + + + + + documented in this encounter Visit Diagnoses + + | Diagnosis | + + | Epigastric pain - Primary Abdominal pain, epigastric | + + | Status post bariatric surgery Bariatric surgery status | + + documented in this encounter"
--- OUTSIDE RECORDS SUMMARY | ~2018-11-09 | XMS | Encounter Summary ---
Demographics + + + | Address | [address] | | | [place] [address] | + + + | Home Phone [...] Providers + +------+ + | Care Independent Distributor Name | Role | Phone | [...] Mychal Kovacs | | | | | [place] [facility] | [place], [place] | | | | | [place] [address] | [address] | | | | | [facility] | [phone] | | | | | Road Physicians | | | | | | [facility] | | | | | | [facility]ilion [place], | | | | | | [place] [address] | | | | | | [phone] | | | +--------+--------+ + + + [...]
--- OUTSIDE RECORDS SUMMARY | ~2018-11-09 | XMS | Encounter Summary ---
Demographics + + + | Address | [address] | | | [place] [address] | + + + | Home Phone [...] Organization | [facility] | | | and [...] Providers + +------+ + | Care Test Data Developer Name | Role | Phone | [...] + + | 08/23/ | Telephone | [facility] | Alanis, | Medication Follow-up | | 2019 | | [address] | MD [place] | (Prior | | | | [place]ley [place] | [address] [place] [address] | Authorization | | | | [place] [id number] | [place] [id number] | needed) | | | | [phone] | [phone] | | | | | | | [...] | | | | | | [address] | | | | | | [place] [address] | | | | | | [phone] | | | | | | | | +--------+---------+ + + + documented as of this encounter Visit Diagnoses Not on filedocumented in this encounter"
--- OUTSIDE RECORDS SUMMARY | ~2018-11-09 | XMS | Encounter Summary ---
Demographics + + + | Address | [address] | | | [place] [address] | + + + | Home Phone [...] Team Providers + +------+ + | Care Used Equipment Sales Representative Name | Role | Phone [...] + | 03// | Telephone | Orthopaedics at | Angel Morales | Knee pain | | 2006 | | [facility] [address] Sara Maier MD,PhD [address] | | | | | Beth[place] Mailcode: CH12A | [address] | | | | | [facility] | [place], [place] | | | | | and Healing, | [address] | | | | | Floor [place], [place] | [phone] | | | | | [address] | | | | | | [phone] | | | +--------+ + + + [...]
--- OUTSIDE RECORDS SUMMARY | ~2018-11-09 | XMS | Encounter Summary ---
Demographics + + + | Address | [address] | | | [place] [address] | + + + | Home Phone [...] Providers + +------+ + | Care [employer] Dean Name | Role | Phone | + +------+ + | Crystal Gutierrez MD | PCP | | + +------+ + Encounter Details +--------+ + + + + | Date | Type | Department | Care Team | Description | +--------+ + + + + | 09/14/ | Procedure - | [facility] Division of | Endoscopy, Gi | EGD | | 2008 | | Gastroenterology/Hep | | (esophagogastroduode | | | Transcribed | atology [address] | | noscopy) | | | | [address] | | | | | | Road Mailcode: | | | | | | [address] | | | | | | [place] [facility] [address] | | | | | | [place], [place] | | | | | | [address] | | | | | | [phone] | | | +--------+ + + + [...] + + + | PROCEDURES:PANENDOSCOPY (EGD) CPT: [id number]. PERSONNEL:THE | | | ATTENDING PHYSICIAN WAS [...] AM PDT | | PROCEDURES:PANENDOSCOPY (EGD) CPT: [id number]. | | PERSONNEL:THE ATTENDING PHYSICIAN WAS PRESENT [...]
--- OUTSIDE RECORDS SUMMARY | ~2018-11-09 | XMS | Encounter Summary ---
Demographics + + + | Address | [address] | | | [place] [address] | + + + | Home Phone [...] Providers + +------+ + | Care Cap Lining Machine Operator Name | Role | Phone [...] as of this encounter Progress Notes Interface, Presidential Helicopter Crew Chief In - 06/23/2006 2:36 AM PST [id number] GEOVANNI SKELTON Molly [id number] Clinic Date: 05/05/2006 Clinic: Endocrinology Subjective: Belinda [...] replacement. Beto Meeks M.D. PD / HS [id number] / [id number] / [id number] / cc: Pedrito Gutierrez M.D. [address] [place] [address] Joanna Arshad M.D. [facility] Electronically signed by Beto Meeks 06-20-2006 11:48:11 PM documented i n this encounter Plan of Treatment Not on filedocumented as of this encounter Visit Diagnoses Not on filedocumented in this encounter"
--- OUTSIDE RECORDS SUMMARY | ~2018-11-09 | XMS | Encounter Summary ---
Demographics + + + | Address | [address] | | | [place] [address] | + + + | Home Phone [...] Providers + +------+ + | Care Pocket Builder Name | Role | Phone | [...] | [place] [address] | [address] [place], | Myelopathy, Lumbar | | | | Mychal Kovacs Mail Code: | [place] [address] | Region; Herniated | | | | CH15P [facility] | | Lumbar | | | | Health and Healing, | | Intervertebral Disc | | | | 15th Floor | | L4-5; Fibromyalgia | | | | [facility] [place] | | syndrome 729.1 | | | | [address] | | | | | | [phone] | | | +--------+---------+ + + + [...] Note Date: December 02, 2006 Patient: Belinda Molly Meehan, [id number], 1960 I agree with the proposed Physical Therapy Treatment Plan. Provider: DELFINA MOLINA ANP Nathalia Garrett - 007 4:49 PM PDT Physical Therapy Medicare Progress Note Date: 09/09/2006 Belinda Meehan [id number]. 1960 Start of Care: 06/23/2006 Referring Provider: [...] with walking and sitting; driving back to [place] 2 weeks ago, stopped at rest place and got out of care, falling onto B knees, getting better. Objective: Apparently patient's trip home 2 weeks ago was most likely related to her positi oning, ie B knees were hyperflexed for a prolonged time. She has not fallen since then, use s her lofstrand crutches consistently. Functionally, patient is walking 25 minutes at [employer] at least daily and tolerating it we [...] able to prepare a meal using the quitchene. Plan: Patient has 2 f/u visits remaining, [...] + + +--------+ + + | MA MANUAL THER | Procedures | Routin | [...] + + +--------+ + + | MA THERAPEUTIC | Procedures | Routin | Neck [...]
--- OUTSIDE RECORDS SUMMARY | ~2018-11-09 | XMS | Encounter Summary ---
Demographics + + + | Address | [address] | | | [place] [address] [...] Team Providers + +------+ + | Care Rigging Loft Repairer Name | Role | Phone | [...] [address] | [address] [facility] | | | | | [facility] | [facility] | | | | | Mailcode: L223A | [place], [place] | | | | | Physicians [address]ila | [address] | | | | | [address] [place], | [phone] | | | | | [place] [address] | | | | | | [phone] | | | +--------+ + + + [...]
--- OUTSIDE RECORDS SUMMARY | ~2018-11-09 | XMS | Encounter Summary ---
Demographics + + + | Address | [address] | | | [place] [address] | + + + | Home Phone [...] Team Providers + +------+ + | Care Flatwork Ironer Name | Role | Phone | [...] as of this encounter Progress Notes Interface, Dye Tub Tender In - 09/13/2005 2:06 AM PST [id number] GEOVANNI SKELTON Molly Clinic Date: 07/03/2005 Clinic: [...] which are pending through the laboratory in [place]. Allergies: PENICILLIN, CODEINE, KEFLEX, SULFA, CIPRO, AND [...] which were done several days ago in [place]. Beto Meeks M.D. PD / HS [id number] / [id number] / [id number] / [id number] cc: Chris Padgett M.D. [facility] Electronically signed by Beto Meeks 09-12-2005 02:23:07 AM documented i n this encounter Plan of Treatment Not on filedocumented as of this encounter Visit Diagnoses Not on filedocumented in this encounter"
--- OUTSIDE RECORDS SUMMARY | ~2018-11-09 | XMS | Encounter Summary ---
Demographics + + + | Address | [address] | | | [place] [address] | + + + | Home Phone [...] Providers + +------+ + | Care Photo Lab Technician Name | Role | Phone | [...] + + | 09/12/ | Telephone | [facility] | Miranda Lambert, | Medication | | 2009 | | Pain Center at | ANP | Adjustment (rec's | | | | [facility] | | for weaning due to | | | | [address] | | over use) | | | | Mail Code: CH15P | | | | | | [facility] | | | | | | and Healing, | | | | | | Floor [place], [place] | | | | | | [address] | | | | | | [phone] | | | +--------+ + + + [...]
--- OUTSIDE RECORDS SUMMARY | ~2018-11-09 | XMS | Encounter Summary ---
Demographics + + + | Address | [address] | | | [place] [address] | + + + | Home Phone [...] Team Providers + +------+ + | Care Rand Tacker Name | Role | Phone | + [...] | Management | Chronic | [employer], SIENE MAKER | Rosi Armijo, ANP | | | | | neck pain | [address] | [address] | | | | | Low back | [address] | [address] | | | | | pain | [place] | [place], [place] | | | | | | [address] | [address] | | | | | | Phone: | | | | | | | [phone] | | | | | | | Fax: | | | | | | | [phone] | | +--------+--------+ + + + + Encounter Details +--------+---------+ + + + | Date | Type | Department | Care Team | Description | +--------+---------+ + + + | 08/09/ | Office | [facility] | Rosi Antonio, | Fibromyalgia | | 2013 | Visit | Pain Center at | ANP | syndrome 729.1 | | | | [facility] | | (Primary Dx); Major | | | | [address] | | depressive disorder, | | | | Mail Code: CH15P | | recurrent episode, | | | | [facility] | | moderate (HCC); | | | | and | | Adjustment disorder | | | | Floor [place], [place] | | with anxiety; LBP | | | | [address] | | (low back pain); | | | | [phone] | | Osteopenia; Chronic | | | [...] al. Diabetes Care. 28(1):89-94, 2004; Anca M, ACID SUPERVISOR Drugs. [address] 1:25-30; discussion [...] might be different fro m the original. [facility] Pain [facility] Return Visit 08/09/2013 Belinda [...] never going to her local hospital in [place] for any medical evaluations. Belinda is very [...] Overview Note: Surgery 05/15/08 Dr Ricky Garnett [facility] k[facility]os to get operative reports Osteopenia 08/24/2007 [...] and a pain drawing which I reviewed. [facility] Brief [...] regions, she notes pain in her right congregation, bilateral shoul crista muscles, left elbow, entire [...] knee Lumbar fusion 05/2008, '11 & '12 L5-Z9nroycd with bone spur removals Appendectomy Cholecystectomy section [...] Hives Mainly in the legs Clindamycin Codeine Vtymbqr-Ghtpbrsced-Ggm-Caff Balance problems Fioricet W/Codeine (Cbaqnqmygv-Ouxseqaikp-Vup-Cod) Keflex (Cephalexin) Morphine IM ( only in [facility]) made gut pain worse 08/27/06: Trial of oral MSIR caused leg swelling Penicillins Sulfa (Sulfonamide Antibiotics) Tramadol Ms. Meehan reports no side effects. The Review of Systems provided by Ms. Meehan and documented by the [facility] was reviewed. This data was entered [...] et al. Diabetes Care. 28(1):89-94, 2004; Anca Lopez, ACID SUPERVISOR Drugs. [address] 1:25-30; discussion 45-, 2006; Dio SJ.et al.Neuroscience Letters. 397(3):219-23, 20 [...] of which more than 50% was spent rregi-zj-rgqo in r eviewing pain questionnaire, medical record, consultation, discussion, addressing questions and counselling/education. [facility] Sarah Beth Guzman - 08/09 10:19 AM PSTJOHN History: 1. Has your pain changed from [...] | + +---------+ + + | [facility] DEPARTMENT OF | | | | | [...]
--- OUTSIDE RECORDS SUMMARY | ~2018-11-09 | XMS | Encounter Summary ---
Demographics + + + | Address | [address] | | | [place] [address] | + + + | Home Phone [...] + +------+ + | Care Continuous Improvement Facilitator Name | Role | Phone | [...] 2007 | | [facility] | [address] | | | | | [facility] | Clementina W[address] [place], | | | | | [place] [address] | [place] [address] | | | | | [address] | [phone] | | | | | Road Physicians | | | | | | [facility] | | | | | | [place], | | | | | | [place] [address] | | | | | | [phone] | | | +--------+ + + + [...] | | + +---------+--------+ + + | [place] DXA BONE | Imaging | Routin | [...]
--- OUTSIDE RECORDS SUMMARY | ~2018-11-09 | XMS | Encounter Summary ---
Demographics + + + | Address | [address] | | | [place] [address] | + + + | Home Phone [...] Providers + +------+ + | Care Flight Crew Ordnanceman Name | Role | Phone | + [...] as of this encounter Progress Notes Interface, Stitch Separator In - 01/12/2005 8:09 AM PDT [id number] GEOVANNI Barnes Clinic Date: 03/07/2004 Clinic: [facility] TELEPHONE CONVERSATION Subjective: Belinda contacted [...] She is welcome to come to [facility] for evaluation; however, given the distance of a 4-hour travel time, we found it would be more expeditious for her to be seen at her local hospital in [place]. The patient also agrees with this plan [...] additional followup as needed. Christie Kirkpatrick / [id number] / [id number] / [id number] / documented i n this encounter Plan of Treatment Not on filedocumented as of this encounter Visit Diagnoses Not on filedocumented in this encounter"
--- OUTSIDE RECORDS SUMMARY | ~2018-11-09 | XMS | Encounter Summary ---
Demographics + + + | Address | [address] | | | [place] [address] | + + + | Home Phone [...] Providers + +------+ + | Care Mixed Livestock Farm Worker Name | Role | Phone | + +------+ + PCP | Unavailable | + +------+ + Encounter Details +--------+ + + + + | Date | Type | Department | Care Team | Description | +--------+ + + + + | 11/22/ | Results | | Other, Faculty | | | 2004 | Only | | [phone] | | +--------+ + + + + [...] + + | [facility] DEPARTMENT OF | [address] | [place] [address] | | | PATHOLOGY | [address] | | | + + + + + | [facility] DEPARTMENT OF | [address] | [place] [address] | | | PATHOLOGY | [address] [...] | + + + + + | [facility] | [address] | [place] [address] | | | PATHOLOGY | [address] | | | + + + + + | [facility] | [address] | [place] [address] | | | PATHOLOGY | [address] [...] | + + + + + | [facility] | [address] | [place] [address] | | | PATHOLOGY | [address] | | | + + + + + | [facility] | [facility] | [place] [address] | | | PATHOLOGY | [address] [...] + | Ordered by SYEDA MCKENZIE | [facility] | | | DEPARTMENT OF | | | PATHOLOGY | + + + + + + + + | Performing | Address | City/State/Zipcode | Phone Number | | Organization | | | | + + + + + | [facility] DEPARTMENT OF | [address] | [place] [address] | | | PATHOLOGY | [address] | | | + + + + + | [facility] DEPARTMENT OF | [address] | [place] [address] | | | PATHOLOGY | [address] [...] + | Ordered by SYEDA MCKENZIE | [facility] | | | DEPARTMENT OF | | | PATHOLOGY | + + + + + + + + | Performing | Address | City/State/Zipcode | Phone Number | | Organization | | | | + + + + + | [facility] DEPARTMENT OF | [address] | [place] [address] | | | PATHOLOGY | [address] | | | + + + + + | [facility] OF | [address] | [place] [address] | | | PATHOLOGY | [address] [...] | + + + + + | [facility] | [address] | [place] [address] | | | PATHOLOGY | [address] | | | + + + + + | [facility] | [address] | [place] [address] | | | PATHOLOGY | [address] | | | + + + + + documented in this encounter Visit Diagnoses Not on filedocumented in this encounter"
--- OUTSIDE RECORDS SUMMARY | ~2018-11-09 | XMS | Encounter Summary ---
Demographics + + + | Address | [address] | | | [place] [address] | + + + | Home Phone [...] Team Providers + +------+ + | Care Peanut Sheller Name | Role | Phone | [...] Closed | | Surgery | Diagnoses | Nuirs Cardenas | Bianca, | | | | | Internal | T, CHAPLAIN RESIDENT [address] | Bandar Stroud MD | | | | | hemorrhoid | [address] | [address] | | | | | Rectal pain | AVE | [address] | | | | | Procedures | [place], [place] | [address], | | | | | CONSULT TO | [address] | [place] | | | | | COLORECTAL | | [address] | | | | | SURGERY | | Phone: | | | | | | | [phone] | | | | | | | Fax: | | | | | | | [phone] | +--------+--------+ + + + + Encounter Details +--------+ + + + + | Date | Type | Department | Care Team | Description | +--------+ + + + + | 08/10/ | Sign Wirer | [facility] | Nuris Cardenas NP | Internal Hemorrhoid; | | 2008 | | Center [address] | [address] | Rectal Pain | | | | [address] | [place] [address] | | | | | Mailcode: ACL081 | | | | | | Physicians Sharmila | | | | | | [place], [place] | | | | | | [address] | | | | | | [phone] | | | +--------+ + + + [...]
--- OUTSIDE RECORDS SUMMARY | ~2018-11-09 | XMS | Encounter Summary ---
Demographics + + + | Address | [address] | | | [place] [address] | + + + | Home Phone [...] Team Providers + +------+ + | Care Cream Ripener Name | Role | Phone | + [...] 05/29/ | Office | [facility] | Lukasz Charles, | Major Depressive | | 2005 | Visit | 15th Floor [address] | PhD [address] | Disorder, Recurrent | | | | [address] Mail | Ave [place], [place] | Episode, Moderate | | | | Code: [facility] | [address] | ([facility]); Chronic | | | | for Health and | [phone] | Abdominal Pain; | | | | Healing, 15th Floor | | Cervical Pain; | | | | [place], [place] | | Headache; Adjustment | | | | [address] | | Disorder with | | | | [phone] | | Anxiety; Other Pain | | [...] Notes Lukasz Charles - 05/29/2006 6:15 PM [facility] Initial Psychological Wendy luation IDENTIFYING INFORMATION: Belinda Meehan is a 46 y.o. female Date of : 1960 Consulting Physician: LUKASZ CHARLES PHD Consultation Date: 05/29/2006 Referring Provider: Carlos Arreola Identifying Information: Belinda Meehan is a 46 y.o. female who lives in [facility] her 2 sons. The patient was referred [...] disability benefits. 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 Marital History: , not currently in [...] and decreasing depression and anx iety. Diagnosis: [place] I: 1. (296.32) Major depressive disorder, recurrent, moderate. 2. (309.24) Adjustment disorder with anxiety. 3. 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 [place] II: Deferred [place] III: abdominal pain, migraine headache, low back pain. [place] IV: low finances [place] V: GAF 50 Recommendations: 1. Psychological counseling to increase knowledge and use of cognitive and behavioral pain coping skills is recommended. The treatment should include relaxation training to improve c ontrol over physiologic responses to pain. Treatment should also focus on decreasing sympto ms of depression and increasing participation in social, recreational and leisure activities . Ms. 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 LUKASZ CHARLES PHD [facility], 4th [place] [address] documented in this encount er Plan of Treatment + + +--------+ + + | Name | Type | Priori | Associated Diagnoses | Order Schedule | | | | ty | | | + + +--------+ + + | [facility] | Procedures | Routin | Major [...]
--- OUTSIDE RECORDS SUMMARY | ~2018-11-09 | XMS | Encounter Summary ---
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 Diagnosis: [place] I: 1. (296.32) Major depressive disorder, recurrent, moderate. 2. (309.24) Adjustment disorder with anxiety. 3. 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 [place] II: Deferred [place] III: abdominal pain, migraine headache, low back pain. [place] IV: low finances [place] V: GAF 55-60 Plan: Return in 2 weeks. Check mood, pacing, relaxation, activity, distraction. Continue cognit gerda/behavioral therapy. Set goals for summer activity. Total time spent with patient was approximately 45 minutes. LUKASZ CHARLES PHD [facility] [address] [facility], 4th [place] [address] documented in this encount er Plan of [...]
--- OUTSIDE RECORDS SUMMARY | ~2018-11-09 | XMS | Encounter Summary ---
Demographics + + + | Address | [address] | | | [place] [address] | + + + | Home Phone [...] Providers + +------+ + | Care Dairy Cattle Farm Worker Name | Role | Phone [...] Rom results of | | | | [facility] | | several radiology | | | | [address] | | studies) | | | | Mail Code: CH15P | | | | | | [facility] | | | | | | and Healing, | | | | | | Floor [place], [place] | | | | | | [address] | | | | | | [phone] | | | +--------+ + + + [...] | + +--------+ + + + | RI MRI LOWER EXTREM | Routin | 08/22/2005 [...] | + +--------+ + + + | RI MRI LOWER EXTREM | Routin | 03/05/2005 [...] + | NAME: BELINDA MEEHAN MR #: [id number] | [facility] | | DATE OF EXAM: [id number] PHYSICIAN: EMMA ROJAS | CARE TESTS | | | | | LUMBAR SPINE W/O CONTRAST AT 1503 HOURS | | | MRI LUMBAR SPINE, 10/06/05 HISTORY: Low back pain with radiation | | | into hips. TECHNIQUE: T1/T2/STIR sagittal, T1 and [...] Armaan Rivera | | | H : [id number] : 1442 Approved By: Radiologist: | | + + + + + + + + | Performing | Address | City/State/Zipcode | Phone Number | | Organization | | | | + + + + + | [facility] | [address] | [place], [place] | | | [place] POINT OF CARE | [address] | [address] | | | TESTS | | | | + + + + + | [facility] | [address] | [place], [place] | | | TESTS | [address] | [address] | | + + + + + SPINE CERV 4 VIEWS (10/01/2005) + + + | Impressions | Performed At | + + + | SPINE CERVICAL 2 VIEWS AT 1410 HOURS CERVICAL SPINE, | [facility] | | 10/01/05 HISTORY: Chronic back pain. FINDINGS: AP, lateral, | CARE TESTS | | and odontoid views of the cervical spine demonstrate normal alignment | | | with no evidence of fracture, osseous lesion, significant disk | | | space narrowing or degenerative change. The soft tissues and | | | odontoid appear normal. IMPRESSION: NORMAL APPEARANCE. | | + + + + + + + + | Performing | Address | City/State/Zipcode | Phone Number | | Organization | | | | + + + + + | [facility] | [address] | [place], [place] | | | [place], POINT OF CARE | [address] | [address] | | | TESTS | | | | + + + + + | [facility] | [address] | [place], [place] | | | TESTS | [facility] | [address] | | + + + + + SPINE THORACIC 2 VIEWS (10/01/2005) + + + | Impressions | Performed At | + + + | SPINE THORACIC 2 VIEW AT 1416 HOURS THORACIC SPINE, 10/01/05 | [facility] | | HISTORY: Back pain. FINDINGS: AP, lateral, and swimmer's | CARE TESTS | | views of the thoracic spine show 12 rib-bearing thoracic vertebrae | | | in normal alignment with no evidence of osseous lesion, fracture, | | | significant degenerative change or disk space narrowing. The | | | paravertebral soft tissues appear normal. IMPRESSION: NO | | | SIGNIFICANT PATHOLOGY. Transcribed By: Armaan Mata : | | | [id number] : 1137 Approved By: | | + + + + + + + + | Performing | Address | City/State/Zipcode | Phone Number | | Organization | | | | + + + + + | [facility] | [address] | [place], [place] | | | [facility] | [address] | [address] | | | TESTS | | | | + + + + + | [facility] | [address] [facility] [address] | [place], [place] | | | TESTS | [address] | [address] | | + + + + + MRI SPINE CERVICAL WO CONTRAST (10/01/2005) + + + | Impressions | Performed At | + + + | SPINE LUMBAR 2 VIEWS AT 1421 HOURS LUMBAR SPINE, 10/01/05 | [facility] | | HISTORY: Back pain. FINDINGS: AP and lateral views of the lumbar | CARE TESTS | | spine show five lgh-grr-vtfeloe lumbar vertebrae in normal alignment | | [...] | SPONDYLOSIS. Transcribed By: Armaan Mata : [id number] : | | | 1402 Approved By: | | + + + + + + + + | Performing | Address | City/[facility] | Phone Number | | Organization | | | | + + + + + | [facility] | [address] | [place], [place] | | | [place], POINT OF CARE | [address] | [address] | | | TESTS | | | | + + + + + | [facility] | [address] | [place], [place] | | | TESTS | [address] | [address] | | + + + + + [...] | | Transcribed By: Adriana Pacheco : [id number] : 1215 Approved | | | By: | | + + + + + + + + | Performing | Address | City/State/Zipcode | Phone Number | | Organization | | | | + + + + + | [facility] | [address] | [place], [place] | | | [facility] | [address] | [address] | | | TESTS | | | | + + + + + | [facility] | [address] | [place], [place] | | | TESTS | [address] | [address] | | + + + + + RI MRI LOWER EXTREM JT, W/O CONTRAST (08/22/2005) + + + | Impressions | Performed At | + + + | LOWER EXTREMITY JOINT RT W/O AT 1619 HOURS RIGHT KNEE MRI, | [facility] | | 08/22/05 HISTORY: [...] + + + + + | [facility] | [address] | [place], [place] | | | [place] POINT OF CARE | [address] | [address] | | | TESTS | | | | + + + + + | [facility] | [address] | [place], [place] | | | TESTS | [address] | [address] | | + + + + + [...] [facility] | [address] | [place], [place] | | | IZ[place]ELA POINT OF CARE | [address] | [address] | | | TESTS | | | | + + + + + | [facility] | [address] | [place], [place] | | | TESTS | [address] | [address] | | + + + + + RI MRI LOWER EXTREM JT, W/O CONTRAST (03/05/2005) [...] | | | By: Armaan Mata : [id number] : 1416 Approved By: | | + + + + + + + + | Performing | Address | City/State/Zipcode | Phone Number | | Organization | | | | + + + + + | [facility] | [address] | [place], [place] | | | [facility] [place] [facility] | [address] | [address] | | | TESTS | | | [...] Armaan | | | Nicole Saenz : [id number] : 1555 Approved By: | | + + + + + + + + | Performing | Address | City/State/Zipcode | Phone Number | | Organization | | | | + + + + + | [facility] | [address] | [place], [place] | | | [facility] | [address] | [address] | | | TESTS | | | [...] Adriana | | | Aminata Pacheco : [id number] : 1505 Approved By: | | + + + + + + + + | Performing | Address | City/State/Zipcode | Phone Number | | Organization | | | | + + + + + | [facility] | [address] | [place], [place] | | | IZ[place]ELA, POINT OF CARE | [address] | [address] | | | TESTS | | | | + + + + + documented in this encounter Visit Diagnoses Not on filedocumented in this encounter"
--- OUTSIDE RECORDS SUMMARY | ~2018-11-09 | XMS | Encounter Summary ---
Demographics + + + | Address | [address] | | | [place] [address] | + + + | Home Phone [...] | | | | | | [address] | | | | | | | [address] | | | | | | | Mailcode: | | | | | | | [place] for | | | | | | | Health and | | | | | | | Healing, | | | | | | | Building [address] | | | | | | | [place], [place] | | | | | | | [address] | | | | | | | Phone: | | | | | | | [phone] | | | | | | | Fax: | | | | | | | [phone] | +--------+--------+ + + + + Encounter Details +--------+---------+ + + + | Date | Type | Department | Care Team | Description | +--------+---------+ + + + | 01/10/ | Office | Digestive Health | Chris Padgett, | Status post | | 2009 | Visit | Center [address] | [address] | bariatric surgery | | | | [address] Mailcode: | [address] | (Primary Dx) | | | | [facility] | [place], [place] | | | | | Health and [facility], | [address] | | | | | 6th floor [place], | [phone] | | | | | [place] [address] | | | | | | [phone] | | | +--------+---------+ + + + [...] and I asked her to see a pelota maker where she lives. Will obtain CBC and [...]
--- OUTSIDE RECORDS SUMMARY | ~2018-11-09 | XMS | Encounter Summary ---
Demographics + + + | Address | [address] | | | [place] [address] | + + + | Home Phone [...] Team Providers + +------+ + | Care Carding Doubler Name | Role | Phone | + [...] Description | +--------+--------+ + + + | 07/10/ | Refill | [facility] | Miracle, [...] [address] | | | | | | [place], [place] | | | | | | [address] | | | | | | [phone] | | | +--------+--------+ + + + [...]
--- OUTSIDE RECORDS SUMMARY | ~2018-11-09 | XMS | Encounter Summary ---
Demographics + + + | Address | [address] | | | [place] [address] | + + + | Home Phone [...] Providers + +------+ + | Care Bindery Supervisor Name | Role | Phone | [...] Densitometry | | MD Beto | Density [facility] | | | | | Osteoporosis | [address] | [address] | | | | | Procedures | Ave | [address] | | | | | CONSULT TO | [place], [place] | Road | | | | | BONE | [address] | Mailcode: | | | | | DENSITOMETRY | Phone: | [address] | | | | | | [phone] | [address] | | | | | | Fax: | [place], [place] | | | | | | [phone] | [address] | | | | | | | Phone: | | | | | | | [phone] | | | | | | | Fax: | | | | | | | [phone] | +--------+--------+ + + + + Reason [...] 2007 | | [facility] | [address] | | | | | Center at Physicians | [place], [place] | | | | | [address] | [address] | | | | | [address]ina | [phone] | | | | | [facility] | | | | | | [facility] | | | | | | [place] [place], | | | | | | [place] [address] | | | | | | [phone] | | | +--------+ + + + [...]
--- OUTSIDE RECORDS SUMMARY | ~2018-11-09 | XMS | Encounter Summary ---
Demographics + + + | Address | [address] | | | [place] [address] | + + + | Home Phone [...] + + + | Author | [facility] | + + + | Organization | [facility] | + + + | [...] Team Providers + +------+ + | Care Webbing Supervisor Name | Role | Phone | [...] [address] | | | | | | [place], [place] | | | | | | [address] | | | | | | [phone] | | | +--------+--------+ + + + [...]
--- OUTSIDE RECORDS SUMMARY | ~2018-11-09 | XMS | Encounter Summary ---
Demographics + + + | Address | [address] | | | [place] [address] | + + + | Home Phone [...] Providers + +------+ + | Care Office Runner Name | Role | Phone | [...] Rd | Follow-Up | | | | [facility] Center for | [place], [place] | Examination | | | | Health and Healing, | [address] | Following Surgery | | | | 6th floor [place], | [phone] | | | | | [place] [address] | | | | | | [phone] | | | +--------+---------+ + + + [...] history of intermittent abdominal pain comes to [facility] for 3 mo f/u evaluation with [...]
--- OUTSIDE RECORDS SUMMARY | ~2018-11-09 | XMS | Encounter Summary ---
Demographics + + + | Address | [address] | | | [place] [address] | + + + | Home Phone [...] Team Providers + +------+ + | Care Checkering Machine Operator Name | Role | Phone [...] [address] | | | | | [address] | [place], [place] | | | | | Health and Healing, | [address] | | | | | 6th floor [place], | [phone] | | | | | [place] [address] | | | | | | [phone] | | | +--------+ + + + [...]
--- OUTSIDE RECORDS SUMMARY | ~2018-11-09 | XMS | Encounter Summary ---
Demographics + + + | Address | [address] | | | [place] [address] | + + + | Home Phone [...] Team Providers + +------+ + | Care Addiction Medicine Physician Name | Role | Phone [...] | | | | pain | [address] [place] | [facility] | | | | | Procedures | [address] | [address] | | | | | CONSULT TO | [place], [place] | [place], [place] | | | | | GI PROCEDURE | [address] | [address] | | | | | UNIT: | Phone: | | | | | | COLONOSCOPY | [phone] | | | | | | | Fax: | | | | | | | [phone] | | + + + + + [...] | | | | [address] | [facility] | | | | | Road Mailcode: | [place], [place] | | | | | [address] Physicians | [address] | | | | | [address] | [phone] | | | | | [place], [place] | | | | | | [address] | | | | | | [phone] | | | +--------+---------+ + + + [...] Ms. Meehan has been seen in the [facility] emergency dept twice in the [...] [facility] | [address] | [place], [place] | | | [facility] | | [address] | | + + + + + documented in this encounter Visit Diagnoses + + | Diagnosis | + + | Chronic abdominal pain - Primary Abdominal pain, unspecified site | + + documented in this encounter
--- OUTSIDE RECORDS SUMMARY | ~2018-11-09 | XMS | Encounter Summary ---
Demographics + + + | Address | [address] | | | [place] [address] | + + + | Home Phone [...] Providers + +------+ + | Care Staff Radiographer Name | Role | Phone | [...] | | | | | MIGUEL ÁNGELS [facility] | [place], [place] | | | | | Health and Healing, | [address] | | | | | 6th floor [place], | [phone] | | | | | [place] [address] | | | | | | [phone] | | | +--------+ + + + [...]
--- OUTSIDE RECORDS SUMMARY | ~2018-11-09 | XMS | Encounter Summary ---
Demographics + + + | Address | [address] | | | [place] [address] | + + + | Home Phone [...] Providers + +------+ + | Care Instrument Mechanic Name | Role | Phone | [...] [address] | | | | | [facility] Center for | [place], [place] | | | | | Health and Healing, | [address] | | | | | 6th floor [place], | [phone] | | | | | [place] [address] | | | | | | [phone] | | | +--------+--------+ + + + [...]
--- OUTSIDE RECORDS SUMMARY | ~2018-11-09 | XMS | Encounter Summary ---
Demographics + + + | Address | [address] | | | [place] [address] | + + + | Home Phone [...] Providers + +------+ + | Care Training Engineer Name | Role | Phone | [...] + + | 03/19/ | Telephone | [facility] Division of | Carlos Arreola, | Erroneous Encounter | | 2005 | | Gastroenterology/Hep | [address] | - Disregard (ERROR) | | | | atology [address] | [facility] | | | | | Jayce [facility] | [place] [address] | | | | | Road Mailcode: | [phone] | | | | | [address] [facility] | | | | | | [address] | | | | | | [place], [place] | | | | | | [address] | | | | | | [phone] | | | +--------+ + + + [...]
--- OUTSIDE RECORDS SUMMARY | ~2018-11-09 | XMS | Encounter Summary ---
[...] Providers + +------+ + | Care Master Automotive Technician Name | Role | Phone | [...] | | Pre-Operative | | | | [facility] [address] | | Examination (Primary | | | | Mailcode: [id number] | | Dx) | | | | Physician's Sharmila | | | | | | [place], [place] | | | | | | [address] | | | | | | [phone] | | | +--------+---------+ + + + [...] place on the hill at the [facility]: Surgeries scheduled in the [facility]): registration is located on the 4th floor of [facility] (Day Surgery). Surgeries scheduled in the [facility]: registration is located on the 9th floor. Surgeries scheduled in [facility]: registration is located on the 6th floor. Surgeries scheduled in the [facility]: registration is located i n the [facility] on the first floor. For surgeries scheduled to take place at the [place] [facility]: registration is l [...] If you use specialized medical equipment at [facility], please check with your provider before bringing [...]
--- OUTSIDE RECORDS SUMMARY | ~2018-11-09 | XMS | Encounter Summary ---
Demographics + + + | Address | [address] | | | [place] [address] | + + + | Home Phone [...] Providers + +------+ + | Care Hat Stock Laminating Machine Operator Name | Role | Phone [...] | Registratio | S Lisa Hartley | [address] | | | | n | [facility] Mailcode: | [place], [place] | | | | | [address] [place], [place] | [address] | | | | | [address] | [phone] | | | | | [phone] | | | +--------+ + + + [...] + + + | [facility] | [address] | [place] [address] | | | LABORATORY | | | [...] at: | | | | | | [facility],[address] | | | | | | Abdaiziz Morales, [facility] | | | | | | [place] [phone] | | | | | | [email or web address] | | | | + + + + + + + + | Specimen | + + | | + + + + + + + | Performing | Address | City/State/Zipcode | Phone Number | | Organization | | | | + + + + + | [facility] | [address] | [place], [place] | | | [facility] | | [address] | | + + + + + [...] Iron and TIBC, Serum Test performed by [facility] | | | [facility]. | | + + + + + + + + | Performing | Address | City/State/Zipcode | Phone Number | | Organization | | | | + + + + + | [facility] | [address] | [place] [address] | | | LABORATORY | | | [...] [facility] | | | | | | [facility] | | | | | | Laboratories. | | | | + + + + + + + + | Specimen | + + | | + + + + + + + | Performing | Address | City/State/Zipcode | Phone Number | | Organization | | | | + + + + + | [facility] | [address] | [place] [address] | | | LABORATORY | | | [...] DEPARTMENT OF | [address] | [place] [address] | | | PATHOLOGY | [address] | | | + + + + + | [facility] DEPARTMENT OF | [address] | [place] [address] | | | PATHOLOGY | [address] [...] + | [facility][1] | [address] [facility] | [place] [address] | | | PATHOLOGY | [address] | | | + + + + + | [facility][1] | [address] [facility] | [place] [address] | | | PATHOLOGY | [address] [...] Performed At | + + + | [id number] Estimated GFR > 60 mL/min/1.73 sq m if non- | [facility] | | [id number] Estimated GFR > 60 mL/min/1.73 sq m [...] + + | [facility][1] | [facility] | [place] [address] | | | PATHOLOGY | [address] | | | + + + + + | [facility][1] | [address] [facility] | [place] [address] | | | PATHOLOGY | [address] | | | + + + + + documented in this encounter Visit Diagnoses Not on filedocumented in this encounter"
--- OUTSIDE RECORDS SUMMARY | ~2018-11-09 | XMS | Clinical Summary ---
Demographics + + + | Address | [address] | | | [place] [address] | + + + | Home Phone [...] + | Organization | [facility] | | | and [...] Team Providers + +------+ + | Care Organizational Psychologist Name | Role | Phone | [...] + + + + + + | Dmyqvvgqtr-Opyt-Jaeb | Hives, Rash | Low | 03/25/20 [...] tablet by mouth | | 0 | 09/1 | | Activ | | Vitamins-Minerals | twice daily | | | 6/20 | | e | | (COMPLETE WOMENS) | | | | 12 | | | | TABS | | | | | | | + + + +---------+------+------+-------+ | travoprost | 1 drop nightly. | | 0 | | | Activ [...] tablet by | 90 | 0 | 09/1 | | Activ | | (ANTIVERT) 25 [...] + + +---------+------+------+-------+ | UNABLE TO | Air Mattress | 1 each | 5 | 10/2 | | Activ | | FINDIndications: | REHAN: 3 months. | | | 9/20 | | e | | Pressure injury of | | | | 18 | | | | right buttock, stage | | | | | | | | 1, Reduced mobility | | | | | | | + + + +---------+------+------+-------+ | omeprazole | take 1 capsule by | 60 | 10 | 11/1 | | Activ | | (PRILOSEC) 20 mg | mouth twice a day | capsule | | 3/20 | | e | | capsule | | | | 18 | | | + + + +---------+------+------+-------+ | topiramate | take 2 tablets by | 228 | 5 | 11/1 | | Activ | | (TOPAMAX) 50 MG | mouth every 12 hours | tablet | | 9/20 | | e | | tablet | for MIGRAINE | | | 18 | | | | | PREVENTION | | | | | | + + + +---------+------+------+-------+ | potassium chloride | take 3 tablets by | 450 | 1 | 04/16 | | Activ | | (KLOR-CON M20) 20 | mouth every morning | tablet | | 0/20 | | e | | mEq ER tablet | and 2 every evening | | | 18 | | | | | with food | | | | | | + + + +---------+------+------+-------+ | Incontinence | As directed | 100 | 11 | 04/16 | | Activ | | Supplies | | each | | 07/04 | | e | | MISCIndications: | [...] + + +---------+------+------+-------+ | UNABLE TO | Gloves | 400 | 11 | 11/2 | | Activ | | FINDIndications: | Use as directed | each | | 1/20 | | e | | Mixed incontinence | | | | 18 | | | | urge and stress [...] puffs into | 1 | 5 | 12/0 | | Activ | | mcg/puff inhaler | the lungs every 6 | Inhaler | | 3/20 | | e | | | hours as needed for | | | 18 | | | | | Wheezing, Shortness | | | | | | | | of Breath or | | | | | | | | Increased Work of | | | | | | | | Breathing (cough). | | | | | | + + + +---------+------+------+-------+ | furosemide (LASIX) | take 1 tablet by | 180 | 2 | 12/2 | | Activ | | 80 mg tablet | mouth twice a day | tablet | | 12/02 | | e | | | | | | 18 | | | + + + +---------+------+------+-------+ | ondansetron | Take 1 tablet by | 270 | 2 | 06/15 | | Activ | | (ZOFRAN ODT) 4 mg | mouth every 8 hours | tablet | | 07/04 | | e | | disintegrating | as needed for | | | 19 | | | | tabletIndications: | Nausea. | | | | | | | Nausea | | | | | | | + + + +---------+------+------+-------+ | metoprolol | take 1/2 tablet by | 30 | 3 | 06/15 | | Activ | | tartrate (LOPRESSOR) | mouth twice a day | tablet | | 10/02 | | e | | 25 mg tablet | | | | 19 | | | + + + +---------+------+------+-------+ | loperamide | Take 2 capsules by | 180 | 3 | 02/0 | | Activ | | (IMODIUM) 2 mg | mouth 3 times daily. | capsule | | 20 | | e | | capsuleIndications: | 4 tablets AM 2 | | | 19 | | | | Chronic diarrhea | tablets PM | | | | | | + + + +---------+------+------+-------+ | torsemide | take 1 tablet by | 25 | 5 | 03/0 | | Activ | | (DEMADEX) 5 mg | mouth 5 TIMES A WEEK | tablet | | 20 | | e | | tablet | | | | 19 | | | + + + +---------+------+------+-------+ | SUMAtriptan | Take 1 tab by mouth | 9 | 11 | 03/1 | | Activ | | (IMITREX) 25 mg | on on-set of | tablet | | 20 | | e | | tabletIndications: | Migraine, may repeat | | | 19 | | | | Migraine without | in 2 hours if | | | | | | | aura and without | needed. Max 2 tabs/ | | | | | | | status migrainosus, | 24 hours | | | | | | | not intractable | | | | | | | + + + +---------+------+------+-------+ | sucralfate | take 1 tablet by | 120 | 1 | 03/2 | | Activ | | (CARAFATE) 1 g | mouth four times a | tablet | | 6/20 | | e | | tablet | day if needed | | | 19 | | | + + + +---------+------+------+-------+ | gabapentin | take 3 capsules by | 270 | 3 | 04/2 | | Activ | | (NEURONTIN) 300 mg | mouth three times a | capsule | | 3/20 | | e | | capsule | day | | | 19 | | | [...] 1 tablet by | | 0 | 09/1 | 05/0 | Disco | | (CALTRATE 600 PO) | mouth four times a | | | 6/20 | 6/20 | ntinu | | | day | | | 12 | 19 | ed | + + + +---------+------+------+-------+ | clobetasol | apply topically to | | 0 | 07/1 | 05/0 | Disco | | (TEMOVATE) 0.05% | affected area twice | | | /20 | 6/20 | ntinu | | cream | a day | | | 17 | 19 | ed | + + + +---------+------+------+-------+ | methocarbamol | take 1 tablet by | 60 | 3 | 11/2 | 05/0 | Disco | | (ROBAXIN) 750 mg | mouth twice a day | tablet | | 0/20 | 6/20 | ntinu | | tabletIndications: | | | | 17 | 19 | ed | | Muscle spasm | | | [...] | IM | EVERY 30 DAYS | | | Activ | | (VITAMIN B-12) | | | | 09/01 | | e | | injection 1,000 mcg | | | | 18 | | | + + +-------+ +------+------+-------+ Active Problems + + + | Problem | Noted Date | + + + | Age-related osteoporosis [...] Date | + + + + | Type II or unspecified type diabetes mellitus with other | 05/04/20 | | | specified manifestations, not stated as uncontrolled | 17 | 9 | + + + + Encounters +--------+ + + + + | Date | Type | Specialty | Care Team | Description | +--------+ + + + + | 11/09/ | Telephone | | Alanis, | Medical Problem | | 2018 | | | MD Petrona | | +--------+ + + + + | 11/03/ | Telephone | | Alanis, | Headache | | 2018 | | | MD Petrona | | +--------+ + + + + | 10/18/ | Office | | Alanis, | Obesity (BMI | | 2018 | Visit | | MD Petrona | 30.0-34.9) (Primary | | | | | Luther Brito MD | Dx); Nausea; 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; 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); | | | | | | Gastroesophageal | | | | | | reflux disease, | | | | | | esophagitis presence | | | | | | not specified | +--------+ + + + + | 10/14/ | Hospital | | Alanis, | Age-related | | 2018 | Encounter | | MD Petrona | osteoporosis without | | | | | | current | | | | | | pathological | | | | | | fracture (Primary | | | | | | Dx) | +--------+ + + + + | 10/11/ | Telephone | | Alanis, | LABS | | 2019 | | | MD Petrona | | +--------+ + + + + | 10/05/ | Telephone | | Alanis, | Appointment Question | | 2019 | | | MD Petrona | | +--------+ + + + + | 09/30/ | Refill | | Alanis, | Medication Refill | | 2019 | | | MD Petrona | | +--------+ + + + + | 09/23/ | Office | | Lencho Rivas, | Sacroiliac | | 2019 | Visit | | PA-C | inflammation (HCC) | | | | | | (Primary Dx); Acute | | | | | | midline low back | | | | | [...] | | | | | Fibromyalgia | +--------+ + + + + | 09/20/ | Telephone | | Alanis, | Medication Orders | | 2018 | | | MD Petrona | | +--------+ + + + + | 09/16/ | Telephone | | Alanis, | Results, Imaging | | 2018 | | | MD Petrona | | +--------+ + + + + | 09/15/ | Hospital | | Emmy-Kamlesh, | Pain in right lower | | 2018 | Encounter | | MD Petrona | leg | +--------+ + + + + | 09/15/ | Office | | Alanis, | Pain in right lower | | 2018 | Visit | | MD Petrona | leg (Primary Dx); | | | | | | Fall in bathtub, | | | | | | initial encounter; | | | | | | Other osteoporosis | | | | | | with current | | | | | | pathological | | | | | | fracture, initial | | | | | | encounter; B12 | | | | | | deficiency | +--------+ + + + + | 09/13/ | Telephone | | Alanis, | Appointment | | 2018 | | | MD Petrona | | +--------+ + + + + | 09/09/ | Telephone | | Alanis, | Phone Attempt | | 2018 | | | MD Petrona | | +--------+ + + + + | 09/06/ | Abstract | | Provider, | | | 2019 | | | MD Colin | | +--------+ + + + + | 09/04/ | Refill | | Alanis, | Medication Refill | | 2018 | | | MD Petrona | | +--------+ + + + + | 09/03/ | Telephone | | Emmy-Kamlesh, | Fall; Hip Pain | | 2018 | | | MD Petrona | | +--------+ + + + + | 09/01/ | Abstract | | Provider, | | | 2018 | | | MD Colin | | +--------+ + + + + | 09/01/ | Telephone | | Alanis, | Sinus Pain | | 2018 | | | MD Petrona | | +--------+ + + + + | 08/26/ | Orders Only | | Emmy-Kamlesh, | Closed nondisplaced | 2018 | | | MD Petrona | fracture of proximal | | | | | | phalanx of left | | | | | | great toe, initial | | | | | | encounter (Primary | | | | | | Dx) | +--------+ + + + + | 08/26/ | Telephone | | Alanis, | Headache (Adult - | | 2018 | | | MD Petrona | Recurrent Or Known | | | | | | Dx Migraines) | +--------+ + + + + | 08/24/ | Telephone | | Alanis, | Toe Pain | | 2018 | | | MD Petrona | | +--------+ + + + + | 08/23/ | Telephone | | Alanis, | Medication Follow-up | | 2018 | | | MD Petrona | (Prior | | | | | | Authorization | | | | | | needed) | +--------+ + + + + | 08/19/ | Telephone | | Alanis, | Cold-like Symptoms | | 2018 | | | MD Petrona | | +--------+ + + + + | 08/14/ | Refill | | Alanis, | Medication Refill | | 2018 | | | MD Petrona | | +--------+ + + + + | 08/13/ | Telephone | | Alanis, | Medication Question | | 2018 | | | MD Petrona | | +--------+ + + + + from Last 3 Months Immunizations + + + + | Name | Dates Previously Given | Next Due | + + + + | INFLUENZA PF | 02/17/2018, 02/04/2017 | | | QUAD(PED/ADOL/ADULT) | | | | ,PSKT or VIAL | | | + + + + | INFLUENZA PF | 02/06/2016, 02/14/2015, 02/16/2014, | | | TRIVALENT(PED/ADOL/A | 02/13/2013, 02/02/2012, 02/03/2011 | | | DULT) PSKT | | | + + + [...] + | Oxygen Saturation | 98% | 10/18/20181004 PDT | + + + + | Inhaled Oxygen | - | - | | Concentration | | | + + + + | Weight | 90.8 kg (200 lb 2.8 | 10/18/20181004 PDT | | | oz) | | + + + + | Height | 172.7 cm (5' 8") | 10/18/20181004 PDT | + + + + | Body Mass Index | 30.44 | 10/18/20181004 PDT | + + + + Plan of Treatment +--------+---------+ + + + | Date | Type | Specialty | Care Team | Description | +--------+---------+ + + + | 11/15/ | Office | | Alanis, | | | 2018 | Visit | | MD Petrona | | | | | | [address] [place] [address] [place] | | | | | | [place] [address] | | | | | | [phone] | | | | | | | [...] | | 03/01/2018 | | | Screening (Ages | 0 | | | | 50-74) | | | | + + [...] + | Vaccine: Influenza | Completed | 02/17/2018, 02/06/2017, | | | | | 02/04/2017, Additional history | | | | | [...] RIGHT 2 VW | e | 11:41 PDT | lower leg | procedure are in the | | | | | | results section. | + +--------+ + + + | IMAGING REPORT - | | 08/25/2018 | | Results for this | | EXTERNAL SCAN | | 0:00 PDT | | procedure are in the | | | | | | results section. | + +--------+ + + + | IMAGING REPORT - | | 08/17/2018 | | Results for this | | EXTERNAL SCAN | | 0:00 PST | | procedure are in the | | | | | | results section. | + +--------+ + + + | IMAGING REPORT - | | 08/17/2018 | | Results for this | | EXTERNAL SCAN | | 0:00 PST | | procedure are in the | | | | | | results section. | + +--------+ + + + from Last 3 Months Results LABS - EXTERNAL SCAN (10/12/2018 0:00 PDT)Only the most recent of 2 results within the period is included. + + + | Narrative | Performed At | + + + | Ordered by an | | | unspecified provider. | | + + + XR Tibia Fibula Right 2 Vw (09/15/2018 [...] | | | + +---------+ + + IMAGING REPORT - EXTERNAL SCAN (08/25/2018 0:00 PDT)Only the most recent of 3 results with in the time period is included. + + [...] +--------+ +---------+--------+ | MEDICARE | MEDICA | [id number] | 07/16/19 | [phone] | | Medica | | | RE | | 03-Pre | 5 | | re | | | PART A | | sent | | | | | | AND B | | | | | | + +--------+ +--------+ +---------+--------+ | [employer] | MODA | [id number] | | [phone] | | Medica | | MEDICAID HMO | HEALTH | | 013-Pr | 1 | | id | | | MDCD | | esent | | | | | | HMO [...] | | al/Fam | | 1960 | [id number] | [place] [address] | | | bijan | | | 3 (Home) | | + +--------+ +--------+ + + Advance Directives Patient has advance care planning documents on file. For more information, please contact:[facility] [place] [address]
--- OUTSIDE RECORDS SUMMARY | ~2018-11-09 | XMS | Encounter Summary ---
Demographics + + + | Address | [address] | | | [place] [address] | + + + | Home Phone [...] Providers + +------+ + | Care Rn Diabetes Name | Role | Phone | + +------+ + | Pedrito Gutierrez MD | PCP | | + +------+ + Encounter Details +--------+ + + + + | Date | Type | Department | Care Team | Description | +--------+ + + + + | 03/10/ | Orders Only | [facility] Division of | Anup Reyes MD | Chronic Abdominal | | 2005 | | Gastroenterology/Hep | | Pain; Iron | | | | atology [address] | | Deficiency | | | | [address] | | | | | | Road Mailcode: | | | | | | PV[address] Physicians | | | | | | [facility] [address] | | | | | | [place], [place] | | | | | | [address] | | | | | | [phone] | | | +--------+ + + + [...] | + + + + + | [facility] DEPARTMENT OF | [address] | [place] [address] | | | PATHOLOGY | [address] | | | + + + + + | [facility] DEPARTMENT OF | [address] | [place] [address] | | | PATHOLOGY | [address] [...] | + + + + + | [facility] DEPARTMENT OF | [address] [facility] | [place] [address] | | | PATHOLOGY | [address] | | | + + + + + | [facility] DEPARTMENT OF | [address] [facility] | [place] [address] | | | PATHOLOGY | [address] [...] OF | [address] | [place] [address] | | | PATHOLOGY | [address] | | | + + + + + | [facility] DEPARTMENT OF | [address] | [place] [address] | | | PATHOLOGY | [address] [...] | + + + + + | [facility] DEPARTMENT OF | [address] | [place] [address] | | | PATHOLOGY | [address] | | | + + + + + | [facility] DEPARTMENT OF | [address] | [place] [address] | | | PATHOLOGY | [address] [...] | pg/mL | | | | | [facility]. | | | | + + + + + + + + | Specimen | + + | | + + + + + + + | Performing | Address | City/State/Zipcode | Phone Number | | Organization | | | | + + + + + | [facility] | [address] | [place] [address] | | | LABORATORY | | | [...] | | | | | performed at [facility] [...] + + + | [facility] | [address] | [place] [address] | | | LABORATORY | | | | + + + + + documented in this encounter Visit Diagnoses + + | Diagnosis | + + | Chronic abdominal pain Abdominal pain, unspecified site | + + | Iron deficiency Other disorders of iron metabolism | + + documented in this encounter"
--- OUTSIDE RECORDS SUMMARY | ~2018-11-09 | XMS | Encounter Summary ---
Demographics + + + | Address | [address] | | | [place] [address] | + + + | Home Phone [...] Team Providers + +------+ + | Care Graphic Design Teacher Name | Role | Phone | [...] | | | | | Clementina Winkler [place], | | | | | | [place] [address] | | | | | | [phone] | | +--------+ + + + + [...] + +---------+ + + | [facility] DEPARTMENT OF | | | | | RADIOLOGY | | | | + +---------+ + + documented in this encounter Visit Diagnoses Not on filedocumented in this encounter"
--- OUTSIDE RECORDS SUMMARY | ~2018-11-09 | XMS | Encounter Summary ---
Demographics + + + | Address | [address] | | | [place] [address] | + + + | Home Phone [...] | Organization | [facility] | | | and [...] Providers + +------+ + | Care Ornamental Brick Installer Name | Role | Phone | [...] + + | 09/30/ | Refill | [facility] | Alanis, | Medication Refill | | 2018 | | MEDICINE [address] [place] [address] | MD Petrona | | | | | [facility] | [address] [place] [address] | | | | | [place] [address] | [place] [address] | | | | | [phone] | [phone] | | | | | | | [...] | | | | | [place] [address] | | | | | | [phone] | | | | | | | | +--------+---------+ + + + documented as of this encounter Visit Diagnoses Not on filedocumented in this encounter"
--- OUTSIDE RECORDS SUMMARY | ~2018-11-09 | XMS | Encounter Summary ---
Demographics + + + | Address | [address] | | | [place] [address] | + + + | Home Phone [...] as of this encounter Progress Notes Interface, Jet Piercer Operator In - 01/03/2006 3:02 AM PDTCLINIC DATE: 11/01/2002 NEUROM[facility] CLINIC PRIMARY CARE PROVIDER: Pedrito Gutierrez M.D. OTHER PHYSICIAN: Issac Meeks M.D., [facility] Endocrinology. PROBLEM LIST 1. Fibromyalgia and [...] fatigue. She reportedly has begun walking with [place] crutches much of the time due to [...] Irving Pete M.D. Neurology/Neuromuscular Fellow TBD / [id number] / [id number] / [id number] / [id number] C: 11/10/2002 BRAD cc: Issac Meeks M.D. [facility] Endocrinology Pedrito Gutierrez M.D. [address] [place], [place] [email or web address] signed by Interface, Jet Piercer Operator In at 01/03/2006 3:0 2 AM PDTdocumented in this encounter Plan of Treatment Not on filedocumented as of this encounter Visit Diagnoses Not on filedocumented in this encounter
--- OUTSIDE RECORDS SUMMARY | ~2018-11-09 | XMS | Encounter Summary ---
Demographics + + + | Address | [address] | | | [place] [address] | + + + | Home Phone [...] Team Providers + +------+ + | Care Glove Maker Name | Role | Phone | [...] + + | 05/28/ | Office | [facility] | Delfina Lambert, | LBP (Low Back Pain); | | 2006 | Visit | [facility] Center at | ANP | Bilateral Knee | | | | [place] | | Pain; Arthroplasty | | | | [address] | | of the Left Knee; | | | | Mail Code: CH15P | | Encounter for | | | | [facility] | | Long-Term (Current) | | | | and Healing, | | Use of Opioids; | | | | Floor [place], [place] | | Migraine Headache; | | | | [address] | | Herniated Lumbar | | | | [phone] | | Intervertebral Disc | | | [...] encounter Patient Instructions Patient Instructions Delfina Lambert - 05/28/2007 11:05 AM PSTDecrease Trileptal by 1/2 tab let (75 mg) every 5 days till noted change in migraines or pain, keep decreasing in this man ner till off. Continue with Oxycontin 40mg, 1 tablet every 12 [address] Follow up [address] Brenda SHEEHAN For ongoing prescribing and management of leg swelling jane gill. documented in this encounter Progress Notes Ines Lambertanne - 05/28/2007 11:00 AM PSTFormatting of this note might be different from lesli gomez. 05/28/2007 Belinda Meehan is a 47 y.o. female [facility] Return Visit [...] [facility] Mail code CH 4P [facility] [address] asha Nolasco - 05/28/2007 10:01 AM [...] of 103.2 she was seen here at [facility] today the temp is 100.2 3. [...]
--- OUTSIDE RECORDS SUMMARY | ~2018-11-09 | XMS | Encounter Summary ---
Demographics + + + | Address | [address] | | | [place] [address] | + + + | Home Phone [...] Team Providers + +------+ + | Care Machinist Wood Name | Role | Phone | [...] | | | | | Procedures | [place], [place] | [address] | | | | | CONSULT TO | [address] | for Health | | | | | BONE | Phone: | and Healing | | | | | DENSITOMETRY | [phone] | [place], [place] | | | | | | Fax: | [address] | | | | | | [phone] | Phone: | | | | | | | [phone] | | | | | | | Fax: | | | | | | | [phone] | +--------+ + + + + + [...] | | | [facility] | [place], [place] | [facility] | | | | Health and [facility], | [address] | | | | | 6th floor [place], | [phone] | | | | | [place] [address] | | | | | | [phone] | | | +--------+---------+ + + + [...] | | + +---------+ + + | [facility] DEPARTMENT OF | | | | [...]
--- OUTSIDE RECORDS SUMMARY | ~2018-11-09 | XMS | Encounter Summary ---
Demographics + + + | Address | [address] | | | [place] [address] | + + + | Home Phone [...] Providers + +------+ + | Care Dial Mounter Name | Role | Phone | [...] of this encounter Progress Notes Interface, Leather Staker In - 01/12/2005 10:09 AM PDT [id number] [facility] Date: 12/19/2004 Clinic: General [...] as vitamin B12. Melisa Thorne / SHARIF [id number] / [id number] / [id number] / [id number] cc: Pedrito Gutierrez M.D. [address] [address] FAX: [phone] Chris Padgett M.D. General Surgery, [facility] Electronically signed by Kenisha Melton 12-25-2004 04:28:39 PM documented i n this encounter Plan of Treatment Not on filedocumented as of this encounter Visit Diagnoses Not on filedocumented in this encounter"
--- OUTSIDE RECORDS SUMMARY | ~2018-11-09 | XMS | Encounter Summary ---
Demographics + + + | Address | [address] | | | [place] [address] | + + + | Home Phone [...] +------+ + | Care Travel Registered Nurse Nicu Name | Role | Phone | + [...] | | | | | | | [facility] | | | | | | | Physicians | | | | | | | Pavilion | | | | | | | Physicians | | | | | | | Pavilion | | | | | | | [place], [place] | | | | | | | [address] | | | | | | | Phone: | | | | | | | [phone] | | | | | | | Fax: | | | | | | | [phone] | +--------+--------+ + + + + Encounter Details +--------+---------+ + + + | Date | Type | Department | Care Team | Description | +--------+---------+ + + + | 01/05/ | Office | Digestive Health | Eliezer Ruano, | Follow-Up | | 2007 | Visit | Center [address] | [address] [facility] | Examination | | | | [address] K[address]acs Mailcode: | [address] | Following Surgery | | | | [facility] | [place], [place] | (Primary Dx) | | | | Health and Healing, | [address] | | | | | 6th floor [place], | [phone] | | | | | [place] [address] | | | | | | [phone] | | | +--------+---------+ + + + [...] documented in this encounter Progress Notes Eliezer Rauno - 01/06/2008 6:27 PM PDTI performed a history and physical examination o f the patient and discussed her management with the resident. I reviewed the resident francesco guevara and agree with the documented findings and plan of care. ELIEZER RUANO MD [facility] [address] [place] [address] And [facility], [address] [place] [address] Tejas Trevino - 01/05 1:54 PM PDTS: Pt is here one week postop lysis of adhesions. She is doing well. She i s still having some pain. PE: Midline incision closed with reshma. [place] removed. There was a small opening of [...]
--- OUTSIDE RECORDS SUMMARY | ~2018-11-09 | XMS | Encounter Summary ---
[...] Providers + +------+ + | Care Exchange Teller Name | Role | Phone | [...] as of this encounter Progress Notes Interface, Sap Functional Analyst In - 01/21/2006 1:09 AM [facility] [place] [address] [address], [place] [address] or March 15, 2002 Pedrito Gutierrez M.D. [facility] [address] [place] [address] RE: BELINDA MEEHAN MR #: [id number] Dear Dr. Gutierrez: I had the pleasure [...] to set her up to see a analytics consultant in Neurology or the Neuromuscular Clinic [...] to contact me. Sincerely, Issac Meeks M.D. nutrition aide Division of Endocrinology, Diabetes, and Clinical Otolaryngology Physician of Metabolic Disorders Clinic [employer]zz / SHARIF [id number] / [id number] / [id number] / Tdocumented in this encounter Plan of Treatment Not on filedocumented as of this encounter Visit Diagnoses Not on filedocumented in this encounter"
--- OUTSIDE RECORDS SUMMARY | ~2018-11-09 | XMS | Encounter Summary ---
Demographics + + + | Address | [address] | | | [place] [address] | + + + | Home Phone [...] Team Providers + +------+ + | Care Kindergartners Helper Name | Role | Phone | + +------+ + | Pedrito Gutierrez MD | PCP | | + +------+ + Encounter Details +--------+ + + + + | Date | Type | Department | Care Team | Description | +--------+ + + + + | 08/22/ | Hospital | Radiology/Imaging | | | | 2008 | Encounter | Lab at [facility] [address] | | | | | | [address] | | | | | | Mailcode: CH3G | | | | | | [facility] | | | | | | and Healing, 3rd | | | | | | Floor [place], [place] | | | | | | [address] | | | | | | [phone] | | | +--------+ + + + [...]
--- OUTSIDE RECORDS SUMMARY | ~2018-11-09 | XMS | Encounter Summary ---
Demographics + + + | Address | [address] | | | [place] [address] | + + + | Home Phone [...] Team Providers + +------+ + | Care Channeler Insole Name | Role | Phone | + [...] as of this encounter Progress Notes Interface, Bowling Ball Finisher In - 08/19/2005 2:05 AM PST [id number] [facility] Clinic Date: 07/24/2005 Clinic: Hematology/Oncology [...] or malignancies. 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 She still smokes 1/2 [...] are appreciated. No petechiae. Laboratory: Labs from [place]: Homocysteine 8.5 and SANIA negative. CBC: White [...] laboratory studies that have been obtained from [place], it does not appear that she has [...] supplementation. Karen Hoff M.D. Lukasz Sellers M.D. technical report writer / [id number] / [id number] / [id number] / [id number] cc: Pedrito Gutierrez M.D. [facility] [address] [place] [address] FAX: [phone] Electronically signed by Lukasz Sellers 08-18-2005 01:27:53 PM documented i n this encounter Plan of Treatment Not on filedocumented as of this encounter Visit Diagnoses Not on filedocumented in this encounter"
--- OUTSIDE RECORDS SUMMARY | ~2018-11-09 | XMS | Encounter Summary ---
[...] Providers + +------+ + | Care Residential Mortgage Manager Name | Role | Phone | [...] Rd | | | | | [facility] [place] for | [place], [place] | | | | | Health and Healing, | [address] | | | | | [address] [place] [address], | [phone] | | | | | [place] [address] | | | | | | [phone] | | | +--------+ + + + [...]
--- OUTSIDE RECORDS SUMMARY | ~2018-11-09 | XMS | Encounter Summary ---
Demographics + + + | Address | [address] | | | [place] [address] | + + + | Home Phone [...] Providers + +------+ + | Care Global Coordinator Name | Role | Phone | [...] Medication requested | | 2007 | | [place] [address] | [address] | (sucralfate | | | | [address] Mailcode: | [address] | (CARAFATE) 1 gram | | | | [address] | [place], [place] | Oral Tablet) | | | | Health and Healing, | [address] | | | | | [address] [place] [address], | [phone] | | | | | [place] [address] | | | | | | [phone] | | | +--------+ + + + [...]
--- OUTSIDE RECORDS SUMMARY | ~2018-11-09 | XMS | Encounter Summary ---
Demographics + + + | Address | [address] | | | [place] [address] | + + + | Home Phone [...] Providers + +------+ + | Care Principal Bioinformatics Specialist Name | Role | Phone | [...] [address] | | | | | | [place], [place] | | | | | | [address] | | | | | | [phone] | | | +--------+--------+ + + + [...]
--- OUTSIDE RECORDS SUMMARY | ~2018-11-09 | XMS | Encounter Summary ---
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 Continue with [...] of this note might be different from e original. 12/04/2006 Belinda Meehan is a 46 y.o. female [facility] Comprehensive Pain Center Return Visit [...] She deneis sweating however has [facility] aqua pool program referral of her orthopedist physician. She reports going to [facility] three times a week for the past [...] the past week of Fentanyl patch and Stendal. Trileptal he lps with right leg pain and sleep. "been sleeping great". Expectations for this visit include : discussing the sticking problems with the fentanyl pa tc and her insurance not being willing prescribe Stendal. There have been no other change in [...] an d her insurance stopped coverage of Stendal. I believe doing pool therapy three times [...] might be d iverting or using her Stendal? Until I know more I will not be prescribing a breakthrough sina n medication but am willing to prescribe early for her fentanyl. I have asked Belinda to pick out hand and be responsible for her own medication pick out hand. I discussed with Tasha Nolasco CMA the issue of Insurance PA for Stendal this was in progress as of the time the patient was here. At the time I completed this note we had word that Ins urance would not approve coverage. I will discuss this with Belinda once I know her story o n where the dispensed #70 Stendal is. [ Tasha reported calling [employer] who reported: Belinda's s on picking up [...] each exchange. 3. Patient instructed to pick out hand and be responsible for her own medications. 4. Follow up in two weeks to review pain management. Once she is again stable on the fen tanyl patch I will transfer her prescribing to Dr. Gutierrez. She has completed the Multidisci plinary patient Care program here at the [facility]. DELFINA MOLINA [facility] Pain Center Mail code CH 4P [facility] and [address] [address] Tasha Can - 12/04/2006 7:43 [...] + + | Opioid dependence, continuous ([facility]) Opioid type dependence, continuous | + + | Major depressive disorder, recurrent episode, moderate ([facility]) Major depressive | | disorder, [...]
--- OUTSIDE RECORDS SUMMARY | ~2018-11-09 | XMS | Encounter Summary ---
Demographics + + + | Address | [address] | | | [place] [address] | + + + | Home Phone [...] | [facility] | | | and Jairana [...] Providers + +------+ + | Care Pit Recorder Name | Role | Phone | [...] + + | 10/11/ | Telephone | [facility] | Alanis, | LABS | | 2018 | | MEDICINE [address] [place] [address] | MD [place] | | | | | [facility] | [address] [place] [address] | | | | | [place] [address] | [place] [address] | | | | | [phone] | [phone] | | | | | | | [...] | | | | | [place] [address] | | | | | | [phone] | | | | | | | | +--------+---------+ + + + + +--------+ + + | Name | Priori | Associated Diagnoses | Order Schedule | | | ty | | | + +--------+ + + | Calcium | Routin | Osteoporosis, | 1 Occurrences | | | e | unspecified | starting 10/11/2018 | | | | osteoporosis type, | until 10/12/2019 | | | | unspecified | | | | | pathological | | | | | fracture presence | | + +--------+ + + | Creatinine | Routin | Osteoporosis, | 1 Occurrences | | | e | unspecified | starting 10/11/2018 | | | | osteoporosis type, | until 10/12/2019 | | | | unspecified | | | | | pathological | | | | | fracture presence | | + +--------+ + + documented as of this encounter Visit Diagnoses + + | Diagnosis | + + | Osteoporosis, unspecified osteoporosis type, unspecified pathological fracture | | presence - Primary | + + documented in this encounter"
--- OUTSIDE RECORDS SUMMARY | ~2018-11-09 | XMS | Encounter Summary ---
Demographics + + + | Address | [address] | | | [place] [address] | + + + | Home Phone [...] Team Providers + +------+ + | Care Nremt Name | Role | Phone | + [...] 2005 | Visit-ECX | Diabetes and | [address] | | | | | Clinical Nutrition | [place], [place] | | | | | [address] | [address] | | | | | [facility] | [phone] | | | | | Mailcode: OPC5 | | | | | | Outpatient Clinic | | | | | | Building [place], | | | | | | [place] [address] | | | | | | [phone] | | | +--------+ + + + [...]
--- OUTSIDE RECORDS SUMMARY | ~2018-11-09 | XMS | Encounter Summary ---
Demographics + + + | Address | [address] | | | [place] [address] | + + + | Home Phone [...] + +------+ + | Care Terrazzo Polisher Helper Name | Role | Phone | [...] as of this encounter Progress Notes Interface, Surgical Lead In - 01/12/2006 1:16 AM PDTCLINIC DATE: 05/24/2002 NEUROMUSCULAR CLINIC PRIMARE CARE PROVIDER: Pedrito Gutierrez M.D., [place], [place]. REFERRING PROVIDER : Issac Meeks M.D., [facility] Endocrinology. REASON FOR CONSULTATION: [...] has some mild associated weakness in her airplane first officer. She was told she had carpal tunnel [...] use drugs. 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 She is applying for disability compensation. She lives in [facility] and is currently undergoing a divorce. REVIEW [...] position sense throughout. Coordination: Fine finger movements, sikswt-wk-akqd, rapid alternating movements, and zsee-in-leqt maneuvers are intact though xkpboy-fk-qpdf is limited by poor depth perception due [...] majority of which was spent in counseling. Irvign Pete M.D. Neurology/Neuromuscular Fellow TB[employer]zz / HS [id number] / [id number] / [id number] / cc: Issac Meeks M.D. [facility] Endocrinology Pedrito Gutierrez M.D. [address] [place] [id number] signed by Interface, Surgical Lead In at 01/12/2006 1:1 6 AM PDTdocumented in this encounter Plan of Treatment Not on filedocumented as of this encounter Visit Diagnoses Not on filedocumented in this encounter
--- OUTSIDE RECORDS SUMMARY | ~2018-11-09 | XMS | Encounter Summary ---
Demographics + + + | Address | [address] | | | [place] [address] | + + + | Home Phone [...] + +------+ + | Care Nuclear Plant Instrument Technician Name | Role | Phone | [...] as of this encounter Progress Notes Interface, Aluminum Siding Applicator In - 12/25/2005 2:07 AM PDT [id number] GEOVANNI Barnes [id number] Clinic Date: 12/05/2005 Clinic: General Surgery Clinic PHONE CONSULTATION Subjective: Belinda Meehan has been under our care with a history of gastric bypass and recurrent abdominal pain, nondiagnostic on multiple tests. She was requesting a prescription for oxycodone which will be sent to her home at [address] [place] [address]. Oxycodone 5 mg, 5 to 10 p.o. [...] Padgett in clinic. Melisa Thorne / SHARIF [id number] / [id number] / [id number] / [id number] Electronically signed by Kenisha Melton 12-24-2005 01:41:04 PM documented i n this encounter Plan of Treatment Not on filedocumented as of this encounter Visit Diagnoses Not on filedocumented in this encounter"
--- OUTSIDE RECORDS SUMMARY | ~2018-11-09 | XMS | Encounter Summary ---
Demographics + + + | Address | [address] | | | [place] [address] | + + + | Home Phone [...] Providers + +------+ + | Care Nurse Midwife/Clinical Instructor Name | Role | Phone | [...] as of this encounter Progress Notes Interface, Spring Former Hand In - 01/12/2005 10:09 AM PDT [id number] GE[facility] Clinic Date: 12/12/2004 Clinic: Endocrinology PHONE CONTACT NOTE The patient called me today after having surgery last week here at [facility]. Her concern was the [...] cushion which I have ordered today through [employer], phone #[phone] and fax #[phone]. Today, the patient will monitor the decubiti closely and will be in touch with myself and her other physician depending on the progress. She also still has [address], which may be removed in one or two weeks when she returns to the Surgery Clinic at [facility]. Beto Meeks M.D. PD / HS [id number] / [id number] / [id number] / [id number] cc: Chris Padgett M.D. documented i n this encounter Plan of Treatment Not on filedocumented as of this encounter Visit Diagnoses Not on filedocumented in this encounter"
--- OUTSIDE RECORDS SUMMARY | ~2018-11-09 | XMS | Encounter Summary ---
Demographics + + + | Address | [address] | | | [place] [address] | + + + | Home Phone [...] Team Providers + +------+ + | Care Change Person Name | Role | Phone | [...] as of this encounter Progress Notes Interface, Telegraph Repeater Installer In - 01/12/2005 6:32 AM PDTClinic Date: [...] improves, and the leg discomfort is actually client services representative of restless legs. I have given [...] 4 months. Caitlin Rivera M.S., F.N.P. / [id number] / [id number] / [id number] / [id number] cc: Pedrito Gutierrez M.D. [address] [place], [place] [address]Gaizxruxvkvgxv signed by Interface, Telegraph Repeater Installer In at 01/12/2005 6:3 2 AM PDTdocumented in this encounter Plan of Treatment Not on filedocumented as of this encounter Visit Diagnoses Not on filedocumented in this encounter"
--- OUTSIDE RECORDS SUMMARY | ~2018-11-09 | XMS | Encounter Summary ---
Demographics + + + | Address | [address] | | | [place] [address] | + + + | Home Phone [...] Providers + +------+ + | Care Field Irrigation Worker Name | Role | Phone | [...] | | [facility] | [place], [place] | | | | | Health and Healing, | [address] | | | | | 6th floor [place], | [phone] | | | | | [place] [address] | | | | | | [phone] | | | +--------+ + + + [...]
--- OUTSIDE RECORDS SUMMARY | ~2018-11-09 | XMS | Encounter Summary ---
Demographics + + + | Address | [address] | | | [place] [address] | + + + | Home Phone [...] Providers + +------+ + | Care Warehouse Picker Name | Role | Phone | + +------+ + | Maria Esther Cintron MD | PCP | Unavailable | + +------+ + Encounter Details +--------+ + + + + | Date | Type | Department | Care Team | Description | +--------+ + + + + | 01/03/ | Telephone | [facility] | Miranda Lambert, | | | 2009 | | Pain Center at | ANP | | | | | [facility] | | | | | | [address] | | | | | | Mail Code: CH15P | | | | | | [facility] | | | | | | and Healing, | | | | | | Floor [place], [place] | | | | | | [address] | | | | | | [phone] | | | +--------+ + + + [...]
--- OUTSIDE RECORDS SUMMARY | ~2018-11-09 | XMS | Encounter Summary ---
Demographics + + + | Address | [address] | | | [place] [address] | + + + | Home Phone [...] Providers + +------+ + | Care Business Services Clerk Name | Role | Phone | [...] [address] | | | | | [facility] | [place], [place] | | | | | [address] | [address] | | | | | [address] | [phone] | | | | | Road Physicians | | | | | | [facility] | | | | | | [place], | | | | | | [place] [address] | | | | | | [phone] | | | +--------+ + + + [...]
--- OUTSIDE RECORDS SUMMARY | ~2018-11-09 | XMS | Encounter Summary ---
Demographics + + + | Address | [address] | | | [place] [address] | + + + | Home Phone [...] Providers + +------+ + | Care Hand Rigger Name | Role | Phone | [...] | Osteopenia | MD Beto | Density [facility] | | | | | Procedures | [address] | [address] | | | | | CONSULT TO | Ave | [address] | | | | | BONE | [place], [place] | Road | | | | | DENSITOMETRY | [address] | Mailcode: | | | | | | Phone: | [address] | | | | | | [phone] | [address] | | | | | | Fax: | [place], [place] | | | | | | [phone] | [address] | | | | | | | Phone: | | | | | | | [phone] | | | | | | | Fax: | | | | | | | [phone] | +--------+--------+ + + + + Encounter Details +--------+ + + + + | Date | Type | Department | Care Team | Description | +--------+ + + + + | 07/24/ | Hospital | Endocrinology, | Sjh, Bmd Dexa | | | 2008 | Encounter | Diabetes and | [address] | | | | | Clinical Nutrition | [address] [place], | | | | | [address] | [place] [address] | | | | | [facility] | | | | | | Mailcode: [address] | | | | | | [address] | | | | | | [place], [place] | | | | | | [address] | | | | | | [phone] | | | +--------+ + + + [...] | deleted from the Results section by Thu Matthews [[id number]] on | | | 04/17/2009 at 5:16 PM (File: [id number]) | | + + + BONE DENSITOMETRY [...]
--- OUTSIDE RECORDS SUMMARY | ~2018-11-09 | XMS | Encounter Summary ---
Demographics + + + | Address | [address] | | | [place] [address] | + + + | Home Phone [...] Team Providers + +------+ + | Care Stamp Pad Maker Name | Role | Phone [...] [place] | | 2008 | | [facility] [address] MD | | | | | [facility] | | | | | | Mailcode: [id number] | | | | | | Physician's Sharmila | | | | | | [place], [place] | | | | | | [address] | | | | | | [phone] | | | +--------+ + + + [...]
--- OUTSIDE RECORDS SUMMARY | ~2018-11-09 | XMS | Encounter Summary ---
Demographics + + + | Address | [address] | | | [place] [address] | + + + | Home Phone [...] Team Providers + +------+ + | Care Procedures Tech Name | Role | Phone | [...] [address] | [facility] | Pre-Operative | | | | [facility] | Gastro [facility] | Examination (Primary | | | | Mailcode: [id number] | [address] | Dx) | | | | Physician's Pavilion | [address] [place], | | | | | [place], [place] | [place] [address] | | | | | [address] | [phone] | | | | | [phone] | | | +--------+---------+ + + + [...] surgeries scheduled to take place on the [place] at the [facility]: Surgeries scheduled in the [facility] ([address] [place] [address]): registration is located on the 4th floor of [facility] (Day Surgery). Surgeries scheduled in the [facility]: registration is located on the 9th floor. Surgeries scheduled in [facility]: registration is located on the 6th floor. Surgeries scheduled in the [facility]: registration is located i n the [facility] on the first floor. For surgeries scheduled to take place at the [facility]: registration is l ocated on the [...] If you use specialized medical equipment at [facility], please check with your provider before [...] surgeries scheduled to take place on the [place] at the [facility]: Surgeries scheduled in the [facility] ( North): registration is located on the 4th floor of [facility] (Day Surgery). Surgeries scheduled in the [facility]: registration is located on the 9th floor. Surgeries scheduled in [facility]: registration is located on the 6th floor. Surgeries scheduled in the [facility]: registration is located i n the [facility] on the first floor. For surgeries scheduled to take place at the [place] [facility]: registration is l [...] you use specialized medical equipment at h [facility], please check with your provider before [...] Overview Note: Surgery 05/15/08 Dr Ricky Garnett [place] JEY karlos to get operative reports Osteopenia [...] 08/2007 right knee Hx lumbar fusion 05/2008 [id number] with bone spur removals Hx appendectomy Hx [...] (Ciprofloxacin) Tramadol Morphine IM ( only in [facility]) made gut pain worse 08/27/06: Trial of oral MSIR caused leg swelling Clarithromycin Hives Mainly in the legs Gfrkkmg-tlyolwzqoe-oex-caff Balance problems Amitriptyline Grand mal seizures Fioricet W/codeine (Ktt-zkneawncdw-tbrmdjyyda-caf) FAMILY HISTORY: Family History Problem Relation Cancer [...] | | | DEPARTMENT | | | [facility] | | | OF | | | [...] + | [facility] | [address] | [place] [address] | | | PATHOLOGY | [address] | | | + + + + + | [facility] DEPARTMENT OF | [address] | [place] [address] | | | PATHOLOGY | [address] [...] DEPARTMENT OF | [address] | [place] [address] | | | PATHOLOGY | [address] | | | + + + + + | [facility] | [address] | [place] [address] | | | PATHOLOGY | [address] | | | + + + + + documented in this encounter Visit Diagnoses + + | Diagnosis | + + | Other specified pre-operative examination - Primary | + + documented in this encounter
--- OUTSIDE RECORDS SUMMARY | ~2018-11-09 | XMS | Encounter Summary ---
Demographics + + + | Address | [address] | | | [place] [address] | + + + | Home Phone [...] Team Providers + +------+ + | Care Icu Clerk Name | Role | Phone | [...] as of this encounter Progress Notes Interface, Gathering Machine Feeder In - 11/19/2005 3:09 AM PDT [place] [facility] [address] [place] [address] or May 09, 2003 Pedrito Gutierrez M.D. [address] [place] [address] RE: BELINDA MEEHAN MR #: [id number] Dear Dr. Gutierrez: I had the pleasure [...] this testing done through your clinic in [place]. I will plan to see her again [...] regarding her condition. Sincerely, Issac Meeks M.D. axle turner, Division of Endocrinology, Diabetes, and Clinical Tree Tapping Laborer, Metabolic Disorders Clinic PBD / HS [id number] / [id number] / [id number] / Tdocumented in this encounter Plan of Treatment Not on filedocumented as of this encounter Visit Diagnoses Not on filedocumented in this encounter"
--- OUTSIDE RECORDS SUMMARY | ~2018-11-09 | XMS | Encounter Summary ---
Demographics + + + | Address | [address] | | | [place] [address] | + + + | Home [...] Providers + +------+ + | Care Home Office Claim Specialist Name | Role | Phone | [...] 2005 | Visit-ECX | Diabetes and | [address] | | | | | Clinical Nutrition | [place], [place] | | | | | [address] | [address] | | | | | [facility] | [phone] | | | | | Mailcode: OPC5 | | | | | | Outpatient Clinic | | | | | | Building [place], | | | | | | [place] [address] | | | | | | [phone] | | | +--------+ + + + [...]
--- OUTSIDE RECORDS SUMMARY | ~2018-11-09 | XMS | Encounter Summary ---
Demographics + + + | Address | [address] | | | [place] [address] | + + + | Home Phone [...] Providers + +------+ + | Care Regional Operations Manager Name | Role | Phone [...] | Pain | Diagnoses | Miracle, | [place], | | | | Management | LBP (low | NIHARIKA Jean | Lukasz Rhodes, PhD | | | | | back pain) | [address] | | | | | DJD | [address] | [address] | | | | | (degenerativ | [place], [place] | [place] | | | | | e joint | [address] | [address] | | | | | disease) of | | Phone: | | | | | knee Knee | | [phone] | | | | | pain Major | | Fax: | | | | | depressive | | [phone] | | | | | disorder, | [...] 11/23/ | Office | Pain Center at [facility] | Lukasz Charles, | Major Depressive | | 2007 | Visit | 15th Floor [address] | PhD [address] | Disorder, Recurrent | | | | [address] Mail | Ave [place], [place] | Episode, Moderate | | | | Code: [facility] Center | [address] | ([facility]); LBP (Low Back | | | | for Health and | [phone] | Pain); Bilateral | | | | Healing, 15th Floor | | Knee Pain; | | | | [place], [place] | | Adjustment Disorder | | | | [address] | | with Anxiety | | | | [phone] | | | +--------+---------+ + + + [...] frustra tion by being less active. Diagnosis: [place] I: 1. (296.32) Major depressive disorder, recurrent, moderate. 2. (309.24) Adjustment disorder with anxiety. 3. 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 [place] II: Deferred [place] III: abdominal pain, migraine headache, low back pain. [place] IV: low finances [place] V: GAF 55-60 Plan: return with next medical follow-up appointment. Check mood, abdominal pain, relaxat ion, activity, distraction. Continue cognitive/behavioral therapy. Total time spent with patient was approximately 45 minutes. LUKASZ CHARLES [facility] [address] [place] [address] And [facility], 4th [place] [address] documented in this encount er Plan of [...]
--- OUTSIDE RECORDS SUMMARY | ~2018-11-09 | XMS | Encounter Summary ---
Demographics + + + | Address | [address] | | | [place] [address] | + + + | Home Phone [...] Providers + +------+ + | Care Computational Geneticist Name | Role | Phone | [...] [address] | | | | | | [place], [place] | | | | | | [address] | | | | | | [phone] | | | +--------+ + + + [...]
--- OUTSIDE RECORDS SUMMARY | ~2018-11-09 | XMS | Encounter Summary ---
Demographics + + + | Address | [address] | | | [place] [address] | + + + | Home Phone [...] | Organization | [facility] | | | and Jairana [...] Team Providers + +------+ + | Care Elevator Examiner And Adjuster Name | Role | Phone | [...] + + | 10/05/ | Telephone | [facility] | Alanis, | Appointment Question | | 2018 | | MEDICINE [address] [place] [address] | MD Petrona | | | | | [facility] | [address] [place] [address] | | | | | [place] [address] | [place] [address] | | | | | [phone] | [phone] | | | | | | | [...] | | | | | | [address] [place] [address] | | | | | | [place] [address] | | | | | | [phone] | | | | | | | | +--------+---------+ + + + documented as of this encounter Visit Diagnoses Not on filedocumented in this encounter"
--- OUTSIDE RECORDS SUMMARY | ~2018-11-09 | XMS | Encounter Summary ---
[...] Providers + +------+ + | Care Face Worker Name | Role | Phone | [...] [address] | [address] | swelling) | | | | [address] [place] Mailcode: | [facility] | | | | | [address] for | [place], [place] | | | | | Health and Healing, | [address] | | | | | 6th floor [place], | [phone] | | | | | [place] [address] | | | | | | [phone] | | | +--------+ + + + [...]
--- OUTSIDE RECORDS SUMMARY | ~2018-11-09 | XMS | Encounter Summary ---
Demographics + + + | Address | [address] | | | [place] [address] | + + + | Home Phone [...] | | | | | | Mailcode: [place] | | | | | | [facility] and | | | | | | [place] [address] | | | | | | [place], [place] | | | | | | [address] | | | | | | [phone] | | | +--------+ + + + [...] en doscopy in the Gastroenterology Clinic at [facility], see transcri bed report. Earnest Ward documented in this encount er Plan of Treatment + + +--------+ + + | Name | Type | Priori | Associated Diagnoses | Order Schedule | | | | ty | | | + + +--------+ + + | SD GI TRACT IMAGING, | Procedures | Routin [...]
--- OUTSIDE RECORDS SUMMARY | ~2018-11-09 | XMS | Encounter Summary ---
Demographics + + + | Address | [address] | | | [place] [address] | + + + | Home Phone [...] Providers + +------+ + | Care Adult Care Manager Name | Role | Phone | + +------+ + | Pedirto Gutierrez MD | PCP | | + [...] | | Migraine | NIHARIKA Jean | [facility] [address] | | | | | headache | [address] | [address] | | | | | Procedures | [address] | Mail Code: | | | | | CONSULT TO | [place], [place] | [address] | | | | | NEUROLOGY | [address] | for Health | | | | | | | and Healing, | | | | | | | 8th floor | | | | | | | [place], [place] | | | | | | | [address] | | | | | | | Phone: | | | | | | | [phone] | | | | | | | Fax: | | | | | | | [phone] | +--------+--------+ + + + + Reason for Visit +--------+ + | Reason | Comments | +--------+ + | Pain | back, legs, headache | +--------+ + Encounter Details +--------+---------+ + + + | Date | Type | Department | Care Team | Description | +--------+---------+ + + + | 08/12/ | Office | MARK Basilio | Delfina Molina, | Migraine Headache | | 2006 | Visit | Pain Center at | ANP | (Primary Dx); | | | | [facility] | | 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 | | Right shoulder | | | | and Healing, | | rotator cuff strain; | | | | Floor [place], [place] | | Fibromyalgia | | | | [address] | | syndrome 729.1; | | | | [phone] | | Depression | +--------+---------+ + + [...] in two weeks or PRN DELFINA MOLINA [facility] Mail code CH 4P Health and [facility] [address] [facility] [address] Alisha Marquez - 7 8:25 [...]
--- OUTSIDE RECORDS SUMMARY | ~2018-11-09 | XMS | Encounter Summary ---
[...] Providers + +------+ + | Care Senior Consumer Insights Consultant Name | Role | Phone | [...] of this encounter Progress Notes Interface, Blow Down Operator In - 01/12/2005 6:20 AM PDT [id number] [facility] Date: 11/18/2004 Clinic: General [...] The patient to send pictures to our director of student financial aid and ticket scheduler for evaluation for medicare for panniculectomy. Described [...] authorization for panniculectomy. Melisa Thorne / SHARIF [id number] / [id number] / [id number] / [id number] cc: Chris Padgett M.D. Joanna Valdez MD [facility] [address] [place] [address] Electronically signed by Kenisha Melton 11-26-2004 05:00:55 PM documented i n this encounter Plan of Treatment Not on filedocumented as of this encounter Visit Diagnoses Not on filedocumented in this encounter"
--- OUTSIDE RECORDS SUMMARY | ~2018-11-09 | XMS | Encounter Summary ---
Demographics + + + | Address | [address] | | | [place] [address] | + + + | Home Phone [...] Providers + +------+ + | Care Lab Clerk Name | Role | Phone | [...] as of this encounter Progress Notes Interface, Tipple Oiler In - 09/13/2005 2:06 AM PST [id number] [facility] Date: 01/02/2005 Clinic: Endocrinology [...] months. Beto Meeks M.D. PD / HS [id number] / [id number] / [id number] / [id number] cc: Chris Padgett M.D. Electronically signed by Beto Meeks 09-12-2005 02:22:56 AM documented i n this encounter Plan of Treatment Not on filedocumented as of this encounter Visit Diagnoses Not on filedocumented in this encounter"
--- OUTSIDE RECORDS SUMMARY | ~2018-11-09 | XMS | Encounter Summary ---
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 2. Continue with Combs 10/325 1 tablet as needed for activity [...] able to see Dr Gutierrez yet b sd does have and appointment next week to [...] ev eduardo 72 hours. 2. Continue with Combs 10/325 1 tablet as needed for activity related pain NTE 3 per day. 3. Continue with pain psychology and physical therapy. 4. Follow up in two weeks to review medication management 5. Keep neurology evaluation as able with insurance aurthorization.- migraine headache eval uation 6. PCP to assess LE edema/swelling. DELFINA MOLINA [facility] Comprehensive Pain Center Mail code CH 4P [facility] and [address] [address] Ailyn Foster 09/10/19 07 12:20 [...] medication refills today? yes documented in this trihealtht er Plan of Treatment Not on filedocumented [...]
--- OUTSIDE RECORDS SUMMARY | ~2018-11-09 | XMS | Encounter Summary ---
Demographics + + + | Address | [address] | | | [place] [address] | + + + | Home Phone [...] Providers + +------+ + | Care Spanish Lecturer Name | Role | Phone | [...] [facility] | Lukasz Charles, | Major Depressive | | 2006 | Visit | 15th Floor [address] | PhD [address] | Disorder, Recurrent | | | | [address] Mail | Ave [place], [place] | Episode, Moderate | | | | Code: [facility] Center | [address] | ([facility]); Neck Pain; | | | | for Health and | [phone] | Herniated Lumbar | | | | Healing, 15th Floor | | Intervertebral Disc | | | | [place], [place] | | L4-5; 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 She has been doing cross stitch [...] She has using good self-care skills. Diagnosis: [place] I: 1. (296.32) Major depressive disorder, recurrent, moderate. 2. (309.24) Adjustment disorder with anxiety. 3. 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 [place] II: Deferred [place] III: abdominal pain, migraine headache, low back pain. [place] IV: low finances [place] V: GAF 50 Plan: Return in 2 weeks. Check preparation for move and for niece's visit, results of orthopedic visit. Check pacing, relaxation, activity, distraction. Continue cognitive/behavioral the rapy. Total time spent with patient was approximately 45 minutes. LUKASZ CHARLES PHD [facility] [address] [facility], 4th [place] [address] documented in this encount er Plan of [...]
--- OUTSIDE RECORDS SUMMARY | ~2018-11-09 | XMS | Encounter Summary ---
Demographics + + + | Address | [address] | | | [place] [address] | + + + | Home Phone [...] Providers + +------+ + | Care Assistant Manager Bilingual Name | Role | Phone | + [...]
--- OUTSIDE RECORDS SUMMARY | ~2018-11-09 | XMS | Encounter Summary ---
Demographics + + + | Address | [address] | | | [place] [address] | + + + | Home Phone [...] Providers + +------+ + | Care Registered Pharmacist Name | Role | Phone | [...] [address] | | | | | SAKINA [facility] | [place], [place] | | | | | Health and Healing, | [address] | | | | | 6th floor [place], | [phone] | | | | | [place] [address] | | | | | | [phone] | | | +--------+ + + + [...]
--- OUTSIDE RECORDS SUMMARY | ~2018-11-09 | XMS | Encounter Summary ---
Demographics + + + | Address | [address] | | | [place] [address] | + + + | Home Phone [...] + +------+ + | Care Director Of Admissions Name | Role | Phone | + [...] Endocrinology | | | | kurt | [facility] | | | | | | [place], [place] | | | | | | [address] | | | +--------+ + + + [...] as of this encounter Progress Notes Interface, Rock Lather In - 12/06/2006 2:32 AM PDT [id number] GEOVANNI Barnes [id number] Clinic Date: 10/29/2006 Clinic: Endocrinology Subjective: Belinda [...] been working with the Pain Clinic at [facility] to optimize her pain management. Fortunately, [...] patch 25 mcg for 72 hours. 2. [place]/acetaminophen 10 mg/325 mg, 1 every 6 hours [...] months. Beto Meeks M.D. PD / HS [id number] / [id number] / [id number] / [id number] cc: Pedrito Gutierrez M.D. [address] [address] Chris Padgett M.D. Electronically signed by Beto Meeks 12-05-2006 05:17:05 AM documented in this encounter Plan of Treatment Not on filedocumented as of this encounter Visit Diagnoses Not on filedocumented in this encounter"
--- OUTSIDE RECORDS SUMMARY | ~2018-11-09 | XMS | Encounter Summary ---
Demographics + + + | Address | [address] | | | [place] [address] | + + + | Home Phone [...] Providers + +------+ + | Care Cover Cutter Machine Name | Role | Phone [...] as of this encounter Discharge Summaries Interface, Ornamental Metal Erector Apprentice In - 01/12/2005 6:32 AM PDTAdmission Date: [...] M.D., D.M.D. Chris Padgett M.D. [email or web address] A [id number] cc: documente d in this encounter Plan of Treatment Not on filedocumented as of this encounter Visit Diagnoses Not on filedocumented in this encounter"
--- OUTSIDE RECORDS SUMMARY | ~2018-11-09 | XMS | Encounter Summary ---
Demographics + + + | Address | [address] | | | [place] [address] | + + + | Home Phone [...] | Organization | [facility] | | | and Jairana [...] Providers + +------+ + | Care Drafter Commercial Name | Role | Phone | [...] + + | 11/03/ | Telephone | [facility] | Alanis, | Headache | | 2019 | | MEDICINE [address] [place] [address] | MD Petrona | | | | | [facility] | [address] [place] [address] | | | | | [place] [address] | [place] [address] | | | | | [phone] | [phone] | | | | | | | [...] | | | | | [place] [address] | | | | | | [phone] | | | | | | | | +--------+---------+ + + + documented as of this encounter Visit Diagnoses Not on filedocumented in this encounter"
--- OUTSIDE RECORDS SUMMARY | ~2018-11-09 | XMS | Encounter Summary ---
Demographics + + + | Address | [address] | | | [place] [address] | + + + | Home Phone [...] +------+ + | Care Oil And Gas Field Technician Name | Role | Phone [...] | | Migraine | MD Edy | [facility] [address] | | | | | headache | [address] | [address] | | | | | Procedures | [facility] | Mail Code: | | | | | CONSULT TO | Rd | [facility] | | | | | NEUROLOGY | [place], [place] | for Health | | | | | | [address] | and Healing, | | | | | | Phone: | [facility] floor | | | | | | [phone] | [place], [place] | | | | | | | [address] | | | | | | | Phone: | | | | | | | [phone] | | | | | | | Fax: | | | | | | | [phone] | +--------+--------+ + + + + Encounter Details +--------+---------+ + + + | Date | Type | Department | Care Team | Description | +--------+---------+ + + + | 03/24/ | Office | Neurology at | Taniya Guerrero, | Migraine Headache | | 2007 | Visit | [facility] & | | (Primary Dx) | | | | Healing [address] | | | | | | [address] Mail Code: | | | | | | CH8C [facility] | | | | | | Health and Healing, | | | | | | 8th floor [place], | | | | | | [place] [address] | | | | | | [phone] | | | +--------+---------+ + + + [...] low blood pressure. 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 Social History Main [...] touch symmetrically throughout. Cerebellar testing shows normal pklsdn-nj-ozww and finger tapping. On gait testing, she [...] the names of 3 headache specialists in [place]- Dr. Koby García, Dr. Dakota Sweet and [...]
--- OUTSIDE RECORDS SUMMARY | ~2018-11-09 | XMS | Encounter Summary ---
Demographics + + + | Address | [address] | | | [place] [address] | + + + | Home Phone [...] Providers + +------+ + | Care Cotton Program Technician Name | Role | Phone | [...] | | | | | Procedures | [address] | | | | | | CONSULT TO | [address] | | | | | | NEUROLOGY | [place], [place] | | | | | | | [address] | | +--------+--------+ + + + + Reason for Visit + + + | Reason | Comments | + + + | Back pain | | + + + Encounter Details +--------+---------+ + + + | Date | Type | Department | Care Team | Description | +--------+---------+ + + + | 10/03/ | Office | [facility] Comprehensive | Miranda Lambert, | Falling; | | 2009 | Visit | Pain Center at | ANP | Fibromyalgia; LBP | | | | [facility] | | (low back pain); | | | | [address] | | Encounter for | | | | Mail Code: CH15P | | Long-Term (Current) | | | | Center for Health | | Use of Opioids; | | | | and | | Hypothyroidism; | | | | Floor [place], [place] | | Metabolic syndrome X | | | | [address] | | 250.80; Major | | | | [phone] | | depressive disorder, | | | [...] Schedule an appointment with Dr. Cesar SHEEHAN [facility] Neurology - If you continue [...] Belinda Meehan is a 49 y.o. female [facility] Comprehensive Pain Center Return Visit [...] drawing has be completed, which I reviewed. [facility] Brief Pain Inventory: (ten= worst possible [...] it no help 4. Dr. Ricky SHEEHAN [facility] [facility] did spine surgery last seen [...] 08/2007 right knee Hx lumbar fusion 05/2008 [id number] with bone spur removals Hx appendectomy Hx cholecystectomy Hx section Hx hysterectomy Gastric bypass Mayra Padgett wt 278 01/18 Paniculectomy Family History Problem Relation Cancer Mother Heart Father Additional Family History Father Migraine Additional Family History Mother Migraine Taniya Guerrero MD [facility] Neurology 2007 evaluation of migraines: [...] the names of 3 headache specialists in [place]- Dr. Koby García, Dr. Dakota Sweet and Dr. Eavristo Nichols. No follow up was made with [...] a neurologist Dr. Taniya Guerrero here at [facility] at that time headaches were due to medication rebound with exterminator use of opioids and m igraine abortive [...] and there is no evidence to support exterminator benefit of opioids for this pa in [...] to schedule a follow up appointment with [facility] neurologists Dr. Guerrero, for falls [...] to taper off gabapentin 2. Order for [facility] neurology Dr. Taniya Guerrero if [...] COMPREHENSIVE [facility] Mail code CH 4P [place] [facility] Healing [address] [place] [address] Ailyn Foster 1:03 PM PDTCMA History: [...]
--- OUTSIDE RECORDS SUMMARY | ~2018-11-09 | XMS | Encounter Summary ---
Demographics + + + | Address | [address] | | | [place] [address] | + + + | Home Phone [...] Providers + +------+ + | Care Regional Commercial Sales Manager Name | Role | Phone [...] NOS-L/Leg | | 2006 | Visit | [facility] [address] | MD Darrion,PhD [address] | (Primary Dx) | | | | Bethanie Mailcode: CH12A | [address] [facility] | | | | | [facility] | [place], [place] | | | | | and [facility], | [address] | | | | | Floor [place], [place] | [phone] | | | | | [address] | | | | | | [phone] | | | +--------+---------+ + + + [...] [facility]) made gut pain worse REVIEW OF [...] normal limits except as noted. RIGHT LEFT [place] Crepitation J Sign Apprehension LIGAMENTS: Within normal [...] are not effective. Angel Morales M.D., Ph.D. Vice President Process, Surgical Regional Commercial Sales Manager Orthopedics & Cartilage Reconstruction Surgery Department of Orthopedics [email or web address] documented in this encou nter Plan of Treatment Not on filedocumented as of this encounter Visit Diagnoses + + | Diagnosis | + + | Osteoarthrosis, unspecified whether generalized or localized, lower leg - Primary | + + documented in this encounter
--- OUTSIDE RECORDS SUMMARY | ~2018-11-09 | XMS | Encounter Summary ---
Demographics + + + | Address | [address] | | | [place] [address] | + + + | Home Phone [...] Team Providers + +------+ + | Care Picker Operator Name | Role | Phone | [...] 2006 | Visit-ECX | Diabetes and | [address] | | | | | Clinical Nutrition | [place], [place] | | | | | [address] | [address] | | | | | [facility] | [phone] | | | | | Mailcode: OPC5 | | | | | | Outpatient Clinic | | | | | | Building [place], | | | | | | [place] [address] | | | | | | [phone] | | | +--------+ + + + [...]
--- OUTSIDE RECORDS SUMMARY | ~2018-11-09 | XMS | Encounter Summary ---
Demographics + + + | Address | [address] | | | [place] [address] | + + + | Home Phone [...] Providers + +------+ + | Care Audit Tech Name | Role | Phone | [...] | | | [facility] | [place], [place] | | | | | [place] | [address] | | | | | [address] [place] | [phone] | | | | | [facility] | | | | | | [facility] | | | | | | [facility] [place], | | | | | | [place] [address] | | | | | | [phone] | | | +--------+--------+ + + + [...]
--- OUTSIDE RECORDS SUMMARY | ~2018-11-09 | XMS | Encounter Summary ---
Demographics + + + | Address | [address] | | | [place] [address] | + + + | Home Phone [...] | Neurology | Diagnoses | [place], | [place], | | | | | Migraine | NIHARIKA Jean | Merari Lopez MD | | | | | headache | [address] | | | | | | Procedures | [address] | | | | | | CONSULT TO | [place], [place] | | | | | | NEUROLOGY | [address] | | +--------+--------+ + + + + [...] | (Primary Dx); | | | | [facility] | | Migraine Headache; | | | | [address] | | Opioid Dependence, | | | | Mail Code: CH15P | | Continuous (HCC); | | | | [facility] | | Neck Pain; Right | | | | and | | shoulder rotator | | | | Floor [place], [place] | | cuff strain; | | | | [address] | | Spondylosis with | | | | [phone] | | Myelopathy, Lumbar | | | [...] 10/23/2006 1:33 PM PDT1. [facility] no changes 2. Continue with orthopedic surgical workup 3. Schedule Neurology evaluation [facility] order placed for Dr. Merari Mittal MD 4. Follow up 11/11/06 documented in this encounter Progress Notes Delfina Molina - 10/23/2006 1:20 PM PDTFormatting of this note might be different from th e original. 10/23/2006 Belinda Meehan is a 46 y.o. female [facility] Return Visit Chief [...] car. She has not been seeing the [facility] PT , await ing the surgical plan for her left knee. MRI done, ordered by Dr. Ibarra who referred to Dr. Angel Morales for surgical opinion, scheduled for 10/28/06. She continues to see Dr. Alin adames at [facility] and reports benefit and would like [...] Collection Time Resulting Agency 10/05/2006 9:20 AM [facility] DEPARTMENT OF RADIOLOGY Component Results MR [...] the free margin and undersurface of the spinning supervisor horn of the medial meniscus suspicious [...] the left knee 3. Schedule Neurology evaluation [facility] order placed for Dr. Merari Mittal MD 4. Follow up 11/11/06 to reivew pain management 5. Cntinue with PT and psychology as scheduled DELFINA MOLINA [facility] Pain Center Mail code CH 4P [facility] and [place] [id number] [facility] [address] iValencia macias - 10/23 12:47 PM [...]
--- OUTSIDE RECORDS SUMMARY | ~2018-11-09 | XMS | Encounter Summary ---
Demographics + + + | Address | [address] | | | [place] [address] | + + + | Home Phone [...] Team Providers + +------+ + | Care Hoe Runner Name | Role | Phone | [...] as of this encounter Progress Notes Interface, Direct Support Professional Home Health In - 01/12/2005 6:46 AM [facility] Date: 11/27/2003 Clinic: Surgery Clinic Subjective: This patient of Dr. Chris Padgett walks into clinic today to discuss her laparoscopic incisions and a lesion on her lower back. She was discharged from [facility] approximately 36 hours ago following a laparoscopic [...] discharge and would like to proceed to [place], where her home is. She agrees to [...] additional questions. Liliya Kirkpatrick. NELLY / SHARIF [id number] / [id number] / [id number] / [id number] Tdocumented in this encounter Plan of Treatment Not on filedocumented as of this encounter Visit Diagnoses Not on filedocumented in this encounter"
--- OUTSIDE RECORDS SUMMARY | ~2018-11-09 | XMS | Encounter Summary ---
Demographics + + + | Address | [address] | | | [place] [address] | + + + | Home Phone [...] Team Providers + +------+ + | Care Telemarketing Fundraiser Name | Role | Phone | + +------+ + | Pedrito Gutierrez MD | PCP | | + +------+ + Encounter Details +--------+---------+ + + + | Date | Type | Department | Care Team | Description | +--------+---------+ + + + | 09/23/ | Office | Comprehensive Pain | Nathalia Arora | Spondylosis with | | 2006 | Visit | [facility] | [address] | Myelopathy, Lumbar | | | | [place] [address] | [place], | Region; Herniated | | | | [address] Mail Code: | [place] [address] | Lumbar | | | | CH15P [place] for | | Intervertebral Disc | | | | Health and Healing, | | L4-5; Neck Pain; | | | | 15th Floor | | Fibromyalgia | | | | [facility] [place] | | syndrome 729.1 | | | | [address] | | | | | | [phone] | | | +--------+---------+ + + + [...] Medicare Progress Note Date: 09/23/2006 Belinda Meehan [id number]. 1960 Start of Care: 06/23/2006 Referring Provider: [...] patient has increased her walking time at [employer] to 30-40 minutes daily, no t able [...] ended: 1199 Nathalia Arora, Physical Therapist License #[id number] documented in this encoun ter Plan of [...]
--- OUTSIDE RECORDS SUMMARY | ~2018-11-09 | XMS | Encounter Summary ---
Demographics + + + | Address | [address] | | | [place] [address] | + + + | Home Phone [...] Providers + +------+ + | Care Bakery Manager Name | Role | Phone | [...] Pain Center at [facility] | Lukasz Charles, | Major Depressive | | 2006 | Visit | 15th Floor [address] | PhD [address] | Disorder, Recurrent | | | | [address] Mail | Ave [place], [place] | Episode, Moderate | | | | Code: [facility] | [address] | ([facility]); LBP (Low Back | | | | for Health and | [phone] | Pain); DJD | | | | Healing, 15th Floor | | (Degenerative Joint | | | | [place], [place] | | Disease) of Knee; | | | | [address] | | Other Pain Disorders | | | | [phone] | | Related to | | | [...] she is having some acute illness. Diagnosis: Austin I: 1. (296.32) Major depressive disorder, recurrent, moderate. 2. (309.24) Adjustment disorder with anxiety. 3. 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 Austin II: Deferred Austin III: abdominal pain, migraine headache, low back pain. Austin IV: low finances Austin V: GAF 55-60 Plan: Return with next medical follow-up appointment. Check mood, knee surgery, relaxation, acti vity, distraction. Continue cognitive/behavioral therapy. Total time spent with patient was approximately 45 minutes. LUKASZ CHARLES PHD [facility] [address] [facility], 4th [place] [address] documented in this encount er Plan of [...]
--- OUTSIDE RECORDS SUMMARY | ~2018-11-09 | XMS | Encounter Summary ---
Demographics + + + | Address | [address] | | | [place] [address] | + + + | Home Phone [...] Providers + +------+ + | Care Supervisor Wash House Name | Role | Phone | [...] | | | | CONSULT TO | [place], [place] | Road | | | | | BONE | [address] | Mailcode: | | | | | DENSITOMETRY | Phone: | RODERICK Eduardo | | | | | | [phone] | Naeem [place] | | | | | | Fax: | [place], [place] | | | | | | [phone] | [address] | | | | | | | Phone: | | | | | | | [phone] | | | | | | | Fax: | | | | | | | [phone] | +--------+--------+ + + + + Reason [...] | | [facility] | [place], [place] | | | | | [address] | [address] | | | | | [address] | [phone] | | | | | [facility] | | | | | | [facility] | | | | | | Sharmila [place], | | | | | | [place] [address] | | | | | | [phone] | | | +--------+ + + + [...]
--- OUTSIDE RECORDS SUMMARY | ~2018-11-09 | XMS | Encounter Summary ---
Demographics + + + | Address | [address] | | | [place] [address] | + + + | Home Phone [...] Providers + +------+ + | Care Professional Athletes Coach Name | Role | Phone | [...] of this encounter Progress Notes Interface, Business Liaison Manager In - 08/19/2005 2:05 AM PST [id number] [facility] Date: 07/29/2005 Clinic: Hematology [...] pursue aggressive iron supplementation. Lukasz Sellers M.D. project construction assistant manager NANCY / SHARIF [id number] / [id number] / [phone] / [phone] cc: Pedrito Gutierrez M.D. [address] [place] [id number] Electronically signed by Lukasz Sellers 08-18-2005 01:28:12 PM documented i n this encounter Plan of Treatment Not on filedocumented as of this encounter Visit Diagnoses Not on filedocumented in this encounter"
--- OUTSIDE RECORDS SUMMARY | ~2018-11-09 | XMS | Encounter Summary ---
Demographics + + + | Address | [address] | | | [place] [address] | + + + | Home Phone [...] Author + + + | Author | [facility] | + + + | Organization | [facility] | + + + | Address [...] Providers + +------+ + | Care Design Drafter Name | Role | Phone | [...] [place] | | | | | [facility] | [place] [address] | | | | | Mailcode: [id number] | | | | | | Physicians [address] | | | | | | [place], [place] | | | | | | [address] | | | | | | [phone] | | | +--------+ + + + [...]
--- OUTSIDE RECORDS SUMMARY | ~2018-11-09 | XMS | Encounter Summary ---
Demographics + + + | Address | [address] | | | [place] [address] | + + + | Home Phone [...] | Registratio | [address] | [address] | | | | n | [facility] Mailcode: | [place], [place] | | | | | RPB07 [place], [place] | [address] | | | | | [address] | [phone] | | | | | [phone] | | | +--------+ + + + [...] + + | [facility] | [address] | [place] [address] | | | LABORATORY | | | [...] | [facility] DEPARTMENT OF | [address] [facility] | [place] [address] | | | PATHOLOGY | [address] | | | + + + + + | [place] DEPARTMENT OF | [address] | [facility] [place] [address] | | | PATHOLOGY | [address] [...] + | [facility] DEPARTMENT OF | [address] | [place] [address] | | | PATHOLOGY | [address] | | | + + + + + | [place] DEPARTMENT OF | [address] | [place] [address] | | | PATHOLOGY | [address] [...] + | [facility] | [address] | [place] [address] | | | PATHOLOGY | [address] | | | + + + + + | [facility] | [address] | [place] [address] | | | PATHOLOGY | [address] | | | + + + + + documented in this encounter Visit Diagnoses Not on filedocumented in this encounter"
--- OUTSIDE RECORDS SUMMARY | ~2018-11-09 | XMS | Encounter Summary ---
Demographics + + + | Address | [address] | | | [place] [address] | + + + | Home Phone [...] Team Providers + +------+ + | Care Type Caster Name | Role | Phone | [...] Telephone | [facility] | Nuris Cardenas ADVISOR ADVOCATE ANGEL CO FOUNDER | Lab Results (Jose L | | 2005 | | Center [address] | [address] | Lor[place] patient) | | | | [address] Mailcode: | [place] [address] | | | | | [address] for | | | | | | Health and Healing, | | | | | | 6th floor [place], | | | | | | [place] [address] | | | | | | [phone] | | | +--------+ + + + [...]
--- OUTSIDE RECORDS SUMMARY | ~2018-11-09 | XMS | Encounter Summary ---
Demographics + + + | Address | [address] | | | [place] [address] | + + + | Home Phone [...] Team Providers + +------+ + | Care Class 1 Owner Operator Name | Role | Phone | [...] PPV | | | | | | [address] | | | | | | [facility] | | | | | | Mailcode: PV450 | | | | | | Physicians [place] | | | | | | [place], [place] | | | | | | [address] | | | | | | [phone] | | | +--------+ + + + [...] | | | | | | | [id number] Name | | | | | | : GEOVANNIBELINDA Ruiz Molly | | | | | | Birthday: | | | | | | 1960 Sex: | | | | | | F Alias:Patient | | | | | | Location: [id number]: | | | | | | Outpatient | | | | | | ActiveOrdering | | | | | | Physician: JOSÉ MIGUEL | | | | | | MARYSOL MORENO SCAPULA | | | | | | COMPLETE completed on | | | | | | 01/01/2009 11:55 | | | | | | AMAccession # | | | | | | [id number]:LEFT | | | | | | SCAPULA [...]
--- OUTSIDE RECORDS SUMMARY | ~2018-11-09 | XMS | Encounter Summary ---
Demographics + + + | Address | [address] | | | [place] [address] | + + + | Home Phone [...] | Organization | [facility] | | | and Jairana [...] Providers + +------+ + | Care Barrel Tester Name | Role | Phone | [...] | | | | sciatica | [place] [address] | | | | | | S/P lumbar | Phone: | | | | | | fusion | [phone] | | | | | | Sacroiliac | Fax: | | | | | | inflammation | [phone] | | | | | | (HCC) [...] | | | | sciatica | [place] [address] | [address] | | | | | S/P lumbar | Phone: | Phone: | | | | | fusion | [phone] | [phone] | | | | | Sacroiliac | Fax: | Fax: | | | | | inflammation | [phone] | [phone] | | | | | ([facility]) | | | | | [...] | | sciatica | [address] | [address] Phone: | | | | | | [place], | [phone] | | | | | | [place] | Fax: | | | | | | [address] | [phone] | | | | | | Phone: | | | | | | | [phone] | | | | | | | Fax: | | | | | | | [phone] | | + + + + + + + Encounter Details +--------+---------+ + + + | Date | Type | Department | Care Team | Description | +--------+---------+ + + + | 09/23/ | Office | [facility] | Lencho Rivas, | Sacroiliac | | 2019 | Visit | PHYSIATRY [address] | PA-C [address] | inflammation (HCC) | | | | [place], | [address] [place] | (Primary Dx); Acute | | | | [place] [address] | [place] [address] | midline low back | | | | [phone] | [phone] | pain with bilateral | | | [...] 09/23/2018 9:20 PDTReferral to aquatic therapy ([facility]). Referral to massage therapy. Due to [...] press against a nerve. Date Last Reviewed: 08/13/201719997218-1122 [employer]. [address] [place] [address], [place] [address]. All righ ts reserved. This information is not intended as a substitute for professional medical care. Always follow your healthcare professional's instructions. documented in this encounter Progress Notes Lencho Rivas PA-C - 09/23/2018 0920 PDTFormatting of this note might be different from th jennifer gomez. Lencho Rivas PA-C [address] [facility], [address] [place] [address] FAX: CHIEF COMPLAINT: Chief Complaint Patient presents [...] Procedure: COLONOSCOPY; Surgeon: Luther Brito MD; Location: [facility] DILATION AND CURETTAGE OF UTERUS ELBOW SURGERY FINGER TRIGGER RELEASE 2002 FINGER TRIGGER RELEASE 2009 GASTRIC BYPASS SURGERY 2004 HYSTERECTOMY 05/14/1980 JOINT REPLACEMENT Bilateral 2007 2007 KNEE ARTHROSCOPY 2005 LAPAROSCOPY 01/27/2015 LAPAROTOMY 2008 ROTATOR CUFF REPAIR 2005 SPINE SURGERY TONSILLECTOMY 1964 UPPER GASTROINTESTINAL ENDOSCOPY N/A 12/18/2017 Procedure: EGD; Surgeon: Luther Brito MD; Location: [facility] PROC[facility] UN[facility] CURRENT MEDICATIONS: Current Outpatient [...] (See Comments) Confused and questionable for seizures Sftymxujbj-Gmuy-Lvzoosdp Hives and Rash Cephalexin Hives Ciprofloxacin Hives [...] apparent deficits with short or intermediate memory. Cranial nerves 2-12 appear grossly intact. [...] currently enrolled in a pain clinic in [place], [place]. 5) Patient will follow up with [...] | | | [facility] [address] | | | | | | [place] [address] | | | | | | [phone] | | | | | | | [...]
--- OUTSIDE RECORDS SUMMARY | ~2018-11-09 | XMS | Encounter Summary ---
Demographics + + + | Address | [address] | | | [place] [address] | + + + | Home Phone [...] Providers + +------+ + | Care Document Controller Name | Role | Phone | + +------+ + | Pedrito Gutierrez MD | PCP | | + +------+ + Encounter Details +--------+---------+ + + + | Date | Type | Department | Care Team | Description | +--------+---------+ + + + | 07/30/ | Office | [facility] | Nathalia Arora | Cervical Spondylosis | | 2006 | Visit | [facility] | [address] | without Myelopathy | | | | [place] [address] | [place]ina [place], | (Primary Dx); | | | | [address] Mail Code: | [place] [address] | Spondylosis with | | | | CH15P [facility] for | | Myelopathy, Lumbar | | | | Health and Healing, | | Region; Herniated | | | | 15th Floor | | Lumbar | | | | [place], [place] | | Intervertebral Disc; | | | | [address] | | Unspecified Myalgia | | | | [phone] | | and Myositis | +--------+---------+ + [...] Medicare Progress Note Date: 07/30/2006 Belinda Meehan [id number]. 1960 Start of Care: 06/23/2006 Referring Provider: [...] her today. Patient has multiple appts. At [facility] today, including a f/u regarding her connelly [...]
--- OUTSIDE RECORDS SUMMARY | ~2018-11-09 | XMS | Encounter Summary ---
Demographics + + + | Address | [address] | | | [place] [address] | + + + | Home Phone [...] + +------+ + | Care Railway Signal Operator Name | Role | Phone | [...] | Stay [address] | [place], [place] | Examination; HTN | | | | [facility] | [address] | (Hypertension); | | | | Mailcode: UHN65 | [phone] | Chronic Pain | | | | Richa Doll | | | | | | [address] [facility] [place] | | | | | | [address] | | | | | | [phone] | | | +--------+---------+ + + + [...] dietary restrictions or a bowel preparation. Your [facility] gical team will give you additional printed [...] PM please call your surgeons' office for [id number]-orlx. PARKING Parking for patients and visitors is available in the [facility] Parking structure located across from [...] ADVICE FOR DAY OF SURGERY: Remove nail indonesian from at least one fingernail (if applicable) [...] surgeries scheduled to take place on the [place] at the [facility]: Surgeries scheduled in the [facility] ([address] [place] [address]): registration is located on the 4th floor of [facility] (Day Surgery). Surgeries scheduled in the [facility]: registration is located on the 9th floor . For surgeries scheduled to take place at the [facility]: registration i s located on the 4th floor (Surgery Center). AVOID THESE MEDICATIONS FOR 7 DAYS BEFORE SURGERY PRODUCTS CONTAINING ASPIRIN Jacquelyn-Radford, Anacin, Anexsia with Codeine, Len nos, Aspirin, Aspirin suppositories, Ascri ptin, Aspergum, Axotal, B-A-C, Baby Aspirin, Lucila, BC Powder, Bexophene, Buffaprin, Bufferi n, Buffinol, Cama-Arthritis Strength, Congespirin, Plevna, Coricidin, Damason, Darvon, Dristan , Anastasia-Gesic, Digel, Dolprin #3 Tablets, Donatab, Doxaphene, Duragesic, Easprin, Ecotrin, Dipika grin Forte, Emiprin, Emprazil, Equagesic, Equazine M, Excedrin, Fiogesic, Fiorgen PH, Fioric et, Fiorinal, 4-Way Cold Tablet Gemnisyn, Indocin, Liquprin, Lortab ASA, Magnaprin, Marnal, Meprobamate, Midol, Momentum, N orgesic, [place], Orphengesic, Pabalate, P-A-C, Percodan, Presalin, Robaxasil, Roxiprin, Bunny eto, Salocol SK-65 Compound, Sine-Aid, Sine-Off,, [place]ie, Supac, Talwin Compound, Trigesic, Tolectin , Traiminicin, Vanquish, ZORprin, Zomax PRODUCTS CONTAINING IBUPROFEN Advil, Aleve, Haltran, Medipren, Midol, Motrin, Naproxyn, Nuprin, Rufen OTHER PRODUCTS WHICH MAY PROMOTE BLEEDING Vitamin E, Gingko Biloba, Marine Fatty Acids, Sheffield-3 Fish Oil Supplements documented in this encounter [...] + | [facility] | [address] [facility] | [place] [address] | | | PATHOLOGY | [address] | | | + + + + + | [facility] DEPARTMENT OF | [address] [facility] [facility] | [place] [address] | | | PATHOLOGY | [address] | | | + + + + + INR (02/21/2009 1:22 PM PDT) + + + + + + | Component | Value | Ref Range | Performed | Pathologist | | | | | At | Signature | + + + + + + | INR | 1.02Comment: | 0.90 - 1.20 INR | [facility] | | | | INR | | [...] DEPARTMENT OF | [address] | [place] [address] | | | PATHOLOGY | [address] | | | + + + + + | [facility] DEPARTMENT OF | [address] | [place] [address] | | | PATHOLOGY | [address] [...] | | | DEPARTMENT | | | TRIN[place]IAN | | | OF | | | [...] + | [facility] | [address] [facility] | [place] [address] | | | PATHOLOGY | [address] | | | + + + + + | [facility] | [address] [place] [address] | [place] [address] | | | PATHOLOGY | [address] [...] DEPARTMENT OF | [address] | [place] [address] | | | PATHOLOGY | [address] | | | + + + + + | [facility] DEPARTMENT OF | [address] | [place] [address] | | | PATHOLOGY | [address] [...] view image for the detailed interpretation from [employer] results. | CARDIOLOGY | | | | + + + + + + + + | Performing | Address | City/State/Zipcode | Phone Number | | Organization | | | | + + + + + | [facility] DEPT OF | [address] | [place], [place] | | | CARDIOLOGY | [address] | [address] | | + + + + + | [facility] DE[facility] OF | [address] | [place], [place] | | | CARDIOLOGY | [address] | [address] | | + + + + + [...]
--- OUTSIDE RECORDS SUMMARY | ~2018-11-09 | XMS | Encounter Summary ---
Demographics + + + | Address | [address] | | | [place] [address] | + + + | Home Phone [...] + +------+ + | Care Middle School French Teacher Name | Role | Phone | [...] + + | 03/28/ | Documentati | [facility] Comprehensive | Rosi Antonio, | Erroneous Encounter | | 2012 | on | Pain Center at | ANP | - Disregard | | | | [facility] [place] [facility] | | | | | | [address] | | | | | | Mail Code: CH15P | | | | | | [facility] | | | | | | and | | | | | | Floor [place], [place] | | | | | | [address] | | | | | | [phone] | | | +--------+ + + + [...]
--- OUTSIDE RECORDS SUMMARY | ~2018-11-09 | XMS | Encounter Summary ---
Demographics + + + | Address | [address] | | | [place] [address] | + + + | Home Phone [...] Team Providers + +------+ + | Care Ignition Expert Name | Role | Phone | [...] + + | 03/03/ | Office | [facility] Comprehensive | Delfina Molina, | LBP (Low Back Pain); | | 2007 | Visit | Pain Center at | ANP | Spondylosis with | | | | [facility] | | Myelopathy, Lumbar | | | | [address] | | Region; Bilateral | | | | Mail Code: CH15P | | Leg Pain; | | | | [facility] | | Radiculitis, | | | | and Healing, | | Lumbosacral; | | | | Floor [place], [place] | | Encounter for | | | | [address] | | Long-Term (Current) | | | | [phone] | | Use of Opioids; Hx | [...] Meehan is a 48 y[address] [facility] Comprehensive Pain Center Return Visit Chief [...] be ing reviewed by Dr Constantino SHEEHAN disposition clerk. MRI of the brain and it was normal A Brief Pain Inventory and a pain drawing has be completed, which I reviewed. [facility] Brief Pain Inventory: (ten= worst possible [...] Ogden PhD TPI every 5-[address] [facility] Rheumatology Hilda Saenz Review of Systems: [...] history, fam bijan history, or social history. [facility] Encorinology PRASHANT DE LA O ACNP [...] continue to discuss with her options at [facility] with, hopefully, coordinatio n of services. [...] 300 mg) by oral route once daily ninxyhhziu-fugptouncapnm-mqktrogi (FIORICET) 50-325-40 mg Oral Tablet take 2 [...] DISK BULGE. Transcribed By: Armaan Rivera : [id number] : 1442 Approved By: Radiologist: Physical Examination: [...] with any concerns or questions. DELFINA MOLINA [facility] Mail code CH 4P [facility] and [address] [address] Kristin Ailyn L - 03/03/20 [...]
--- OUTSIDE RECORDS SUMMARY | ~2018-11-09 | XMS | Encounter Summary ---
Demographics + + + | Address | [address] | | | [place] [address] | + + + | Home Phone [...] Providers + +------+ + | Care Technical Support Internship Name | Role | Phone | [...] | 2012 | | Center at [facility] [address] | WATER RESOURCES PROGRAM DIRECTOR [address] | | | | | [address] | [facility] [address] | | | | | Mailcode: Center | [place], [place] | | | | | for Health and | [address] | | | | | [facility] [address] | [phone] | | | | | [place], [place] | | | | | | [address] | | | | | | [phone] | | | +--------+ + + + [...]
--- OUTSIDE RECORDS SUMMARY | ~2018-11-09 | XMS | Encounter Summary ---
Demographics + + + | Address | [address] | | | [place] [address] [...] Team Providers + +------+ + | Care Spiritual Care Coordinator Name | Role | Phone [...] Osteopenia | MD Beto | Density [facility] | | | | | Procedures | [address] | [address] | | | | | CONSULT TO | Ave | [address]ae[address] Mcrae | | | | | BONE | [place], [place] | Road | | | | | DENSITOMETRY | [address] | Mailcode: | | | | | | Phone: | MANUELDuke Jayce | | | | | | [phone] | [address] | | | | | | Fax: | [place], [place] | | | | | | [phone] | [address] | | | | | | | Phone: | | | | | | | [phone] | | | | | | | Fax: | | | | | | | [phone] | +--------+--------+ + + + + Encounter Details +--------+ + + + + | Date | Type | Department | Care Team | Description | +--------+ + + + + | 07/24/ | Hospital | Endocrinology, | Sjh, Bmd Dexa | | | 2008 | Encounter | Diabetes and | [address] | | | | | Clinical Nutrition | [address] [place], | | | | | [address] | [place] [address] | | | | | [facility] | | | | | | Mailcode: [id number] | | | | | | [address] | | | | | | [place], [place] | | | | | | [address] | | | | | | [phone] | | | +--------+ + + + [...] from the Results section by Thu Matthews [[id number]] on | | | 04/17/2009 at 5:16 PM (File: [id number]) | | + + + BONE DENSITOMETRY [...]
--- OUTSIDE RECORDS SUMMARY | ~2018-11-09 | XMS | Encounter Summary ---
Demographics + + + | Address | [address] | | | [place] [address] | + + + | Home Phone [...] Providers + +------+ + | Care Copper Miner Name | Role | Phone | + +------+ + | Sulaiman Carrera MD | PCP | Unavailable | + +------+ + Encounter Details +--------+ + + + + | Date | Type | Department | Care Team | Description | +--------+ + + + + | 08/09/ | Hospital | Diagnostic Imaging | | | | 2013 | Encounter | Services at [facility] | | | | | | [address] | | | | | | [facility] | | | | | | Mailcode: [id number] [facility] | | | | | | [facility], | | | | | | [place] [address] | | | | | | [phone] | | | +--------+ + + + [...] | | + +---------+ + + | [facility] DEPARTMENT OF | | | | [...]
--- OUTSIDE RECORDS SUMMARY | ~2018-11-09 | XMS | Encounter Summary ---
Demographics + + + | Address | [address] | | | [place] [address] | + + + | Home Phone [...] Team Providers + +------+ + | Care Geropsychologist Name | Role | Phone | + +------+ + | Maria Esther Cintron MD | PCP | Unavailable | + +------+ + Encounter Details +--------+ + + + + | Date | Type | Department | Care Team | Description | +--------+ + + + + | 10/11/ | Abstract | Digestive Health | Patricia Banegas, | | | 2012 | | [place] [facility] [address] | [address] | | | | | [address] | , [facility] 350 | | | | | Mailcode: Center | [place], [place] | | | | | for Health and | [address] | | | | | [facility], [facility] 2 | [phone] | | | | | [place], [place] | | | | | | [address] | | | | | | [phone] | | | +--------+ + + + [...]
--- OUTSIDE RECORDS SUMMARY | ~2018-11-09 | XMS | Encounter Summary ---
Demographics + + + | Address | [address] | | | [place] [address] | + + + | Home Phone [...] Providers + +------+ + | Care Optical Fabricator Name | Role | Phone | [...] [address] | | | | | [facility] | [address] [place], | | | | | [address] | [place] [address] | | | | | Mail Code: CH15P | | | | | | [facility] | | | | | | and | | | | | | Floor [place], [place] | | | | | | [address] | | | | | | [phone] | | | +--------+ + + + [...]
--- OUTSIDE RECORDS SUMMARY | ~2018-11-09 | XMS | Encounter Summary ---
Demographics + + + | Address | [address] | | | [place] [address] | + + + | Home Phone [...] Providers + +------+ + | Care Automatic Oven Operator Name | Role | Phone | [...] [address] | | | | | [facility] | [place], [place] | | | | | [address] | [address] | | | | | [address] [place] | [phone] | | | | | [facility] | | | | | | [place] [facility] | | | | | | [facility] | | | | | | [place] [address] | | | | | | [phone] | | | +--------+ + + + [...]
--- OUTSIDE RECORDS SUMMARY | ~2018-11-09 | XMS | Encounter Summary ---
Demographics + + + | Address | [address] | | | [place] [address] | + + + | Home Phone [...] Providers + +------+ + | Care Supervisor Sawing And Assembly Name | Role | Phone [...] + | 05/29/ | Office | [facility] Comprehensive | Delfina [place], | Chronic Abdominal | | 2005 | Visit | Pain Center at | ANP | Pain; Cervical Pain; | | | | [facility] | | Joint pain 719.40; | | | | [address] | | Depression | | | | Mail Code: CH15P | | | | | | [facility] | | | | | | and Healing, | | | | | | Floor [place], [place] | | | | | | [address] | | | | | | [phone] | | | +--------+---------+ + + + [...] a Physical Therapy evaluation here at the [facility] in [place]. 3. Patient will be referred for a Psychology evaluation here at the [facility] Pain [facility]. 4. Following the completion of [...] Belinda Meehan is a 46 y.o. female [id number] Chief Complaint: Patient presents with: Pain - [...] as PAIN MEDICINES: Opioids: Hydrocodone (Vicodin, Lortab, Strunk): Why stopped?: don't remember. Came off due [...] HX SALPINGO-OOPHORECTOMY COLONOSCOPY Comment: 03/2006 HX TONSILLECTOMY TN D&C AFTER DELIVERY TN INJECT TRIGGER POINT, 1 OR 2 Family [...] a Physical Therapy evaluation here at the [facility]. 3. Patient will be referred for a Psychology evaluation here at the [facility] Pain [facility] er. 4. Following the completion of [...] you for referring [facility] [place] [facility] management evaluation. I trust that you will find the recomm endations satisfactory and that you will be able to implement these in the care of your meheren ent. Should you have any concerns or questions, please contact me, I would be happy to add ress those with you. DELFINA MOLINA [facility] Pain [place] Mail code CH 4P [place] for [facility] and Healing [address] [place] [address] [place] [address] meryTasha - 05/29/2006 1:51 PM PSTInitial [...] drinking? no -Do you ever drink an eye-senior project engineer in the morning to relieve the shakes? [...] stressful life experiences recently? yes If yes, explain:rug cleaner brigida pain GOALS AND EXPECTATIONS 23. What do you expect from our pain program? Help in coping with the pain 24. What types of treatment do you expect from your visits to the [facility] Pain Center ? Stress Management documented [...]
--- OUTSIDE RECORDS SUMMARY | ~2018-11-09 | XMS | Encounter Summary ---
[...] Team Providers + +------+ + | Care Blast Furnace Keeper Name | Role | Phone | [...] | | | Center at [facility] | [place], [place] | and counseling; | | | | [place] [address] | [address] | [place] | | | | [address] | [phone] | | | | | Road [facility]icians | | | | | | [facility] | | | | | | [place], | | | | | | [place] [address] | | | | | | [phone] | | | +--------+ + + + [...]
--- OUTSIDE RECORDS SUMMARY | ~2018-11-09 | XMS | Encounter Summary ---
Demographics + + + | Address | [address] | | | [place] [address] | + + + | Home Phone [...]
--- OUTSIDE RECORDS SUMMARY | ~2018-11-09 | XMS | Encounter Summary ---
Demographics + + + | Address | [address] | | | [place] [address] | + + + | Home Phone [...] Padgett, | | | 2006 | | Center [address] | [address] | | | | | [address] Mailcode: | [address]ae[address]rae | | | | | [address] | [place], [place] | | | | | Health and Healing, | [address] | | | | | 6th [facility], | [phone] | | | | | [place] [address] | | | | | | [phone] | | | +--------+ + + + [...]
--- OUTSIDE RECORDS SUMMARY | ~2018-11-09 | XMS | Encounter Summary ---
Demographics + + + | Address | [address] | | | [place] [address] | + + + | Home Phone [...] + +------+ + | Care Quality Control Scientist Name | Role | Phone | [...] | Transcriptions | + + | Interface, Nerve Specialist In - 08/06/2005 2:06 AM PST | | [id number] | | [id number] GEOVANNI Barnes | | | | Date: 07/25/2005 | | | | Attending Surgeon: Chris Padgett M.D. | | | | Supervisor Shaving And Splitting(s): Bandar Langley M.D. | | | | [...] | | DT / HS | | [id number] / [id number] / [id number] / [id number] | | | | | | | | | | | | Electronically signed by Chris Padgett 08-05-2005 12:36:41 PM | + + documented in this encounter Visit Diagnoses Not on filedocumented in this encounter"
--- OUTSIDE RECORDS SUMMARY | ~2018-11-09 | XMS | Encounter Summary ---
Demographics + + + | Address | [address] | | | [place] [address] | + + + | Home Phone [...] Providers + +------+ + | Care Punch Finisher Name | Role | Phone | [...] [facility] | | | | | | [address] | | | | | | Mail Code: CH15P | | | | | | [facility] | | | | | | and Healing, | | | | | | Floor [place], [place] | | | | | | [address] | | | | | | [phone] | | | +--------+ + + + [...]
--- OUTSIDE RECORDS SUMMARY | ~2018-11-09 | XMS | Encounter Summary ---
Demographics + + + | Address | [address] | | | [place] [address] | + + + | Home Phone [...] Team Providers + +------+ + | Care Petal Shaper Hand Name | Role | Phone | [...] as of this encounter Discharge Summaries Interface, Staff Appraiser In - 01/12/2005 10:09 AM PDT [id number] GEOVANNI Barnes Admission Date: 12/06/2004 Discharge Date: [...] her incision looked clear, dry, and intact. Neversink were in place. She had some moderate [...] Sree Carrillo M.D. Chris Padgett M.D. / [id number] / [id number] / [id number] / [id number] Electronically signed by Chris Padgett 12-31-2004 03:03:21 PM documented i n this encounter Plan of Treatment Not on filedocumented as of this encounter Visit Diagnoses Not on filedocumented in this encounter"
--- OUTSIDE RECORDS SUMMARY | ~2018-11-09 | XMS | Encounter Summary ---
Demographics + + + | Address | [address] | | | [place] [address] | + + + | Home Phone [...] Team Providers + +------+ + | Care Swedish Masseuse Name | Role | Phone | + [...]
--- OUTSIDE RECORDS SUMMARY | ~2018-11-09 | XMS | Encounter Summary ---
Demographics + + + | Address | [address] | | | [place] [address] | + + + | Home Phone [...] Team Providers + +------+ + | Care Monkey Keeper Name | Role | Phone | [...] as of this encounter Progress Notes Interface, Gantry Crane Operator In - 07/09/2005 2:07 AM PST [id number] GEOVANNI Barnes Clinic Date: 07/03/2005 Clinic: Ms. [...] this operation. Chris Padgett M.D. ROSA / [id number] / [id number] / [id number] / [id number] Electronically signed by Chris Padgett 07-08-2005 01:45:20 PM documented i n this encounter Plan of Treatment Not on filedocumented as of this encounter Visit Diagnoses Not on filedocumented in this encounter"
--- OUTSIDE RECORDS SUMMARY | ~2018-11-09 | XMS | Encounter Summary ---
[...] +------+ + | Care Cutting Table Operator Name | Role | Phone [...] | | | | | Encounter | [place] | | | | | for | [address] | [address] | | | | | long-term | | Phone: | | | | | (current) | | [phone] | | | | | use of other | | Fax: | | | | | medications | | [phone] | | | | | LBP (low [...] 08/09/ | Office | Pain Center at [facility] | Lukasz Charles, | Major depressive | | 2013 | Visit | 15th Floor [address] | PhD [address] | disorder, recurrent | | | | Min [address] Mail | Ave [place], [place] | episode, moderate | | | | Code: [facility] Center | [address] | ([facility]) (Primary Dx); | | | | for Health and | [phone] | LBP (low back pain); | | | | Healing, 15th Floor | | Fibromyalgia; | | | | [place], [place] | | Adjustment disorder | | | | [address] | | with anxiety | | | | [phone] | | | +--------+---------+ + + + [...] gives her a lot of motivation. Diagnosis: [place] I: 1. (296.32) Major depressive disorder, recurrent, moderate. 2. (309.24) Adjustment disorder with anxiety. [place] II: Deferred [place] III: abdominal pain, migraine headache, low back pain, fibromyalgia. [place] IV: low finances [place] V: GAF 55-60 Plan: return in 1 month. Check mood, pain, activity, stress management. Ask about any ch anges at home, taking care of her own self, sleeping. Continue cognitive/behavioral therapy . Total time spent with patient was approximately 45 minutes. LUKASZ CHARLES PHD [facility], 4th [place] [address] documented in this en counter Plan of [...]
--- OUTSIDE RECORDS SUMMARY | ~2018-11-09 | XMS | Encounter Summary ---
Demographics + + + | Address | [address] | | | [place] [address] | + + + | Home Phone [...] Providers + +------+ + | Care Assistant Construction Superintendent Name | Role | Phone | [...] | - Disregard | | | | [facility] | | | | | | [address] | | | | | | Mail Code: CH15P | | | | | | [facility] | | | | | | and | | | | | | Floor [place], [place] | | | | | | [address] | | | | | | [phone] | | | +--------+ + + + [...]
--- OUTSIDE RECORDS SUMMARY | ~2018-11-09 | XMS | Encounter Summary ---
Demographics + + + | Address | [address] | | | [place] [address] | + + + | Home Phone [...] Abdominal | | 2005 | | Bariatric [address] | [address] | Pain (Primary Dx) | | | | [address] | [address] | | | | | Road Mailcode: | [place], [place] | | | | | [address] [facility] | [address] | | | | | [address] | [phone] | | | | | [place], [place] | | | | | | [address] | | | | | | [phone] | | | +--------+ + + + [...] [facility] | [address] | [place], [place] | | | [facility] | | [address] | | + + + + + documented in this encounter Visit Diagnoses + + | Diagnosis | + + | Chronic abdominal pain - Primary Abdominal pain, unspecified site | + + documented in this encounter"
--- OUTSIDE RECORDS SUMMARY | ~2018-11-09 | XMS | Encounter Summary ---
Demographics + + + | Address | [address] | | | [place] [address] | + + + | Home Phone [...] | Organization | [facility] | | [...] Team Providers + +------+ + | Care Flex O Writer Operator Name | Role | Phone | + +------+ + | Petrona Thapa | PCP | | | MD | | | + +------+ + Encounter Details +--------+ + + + + | Date | Type | Department | Care Team | Description | +--------+ + + + + | 09/15/ | Hospital | [facility] | Emmy-Kamlesh, | Pain in right lower | | 2019 | Encounter | [facility] | MD Petrona | leg | | | | [address] [place] | [address] [place] | | | | | [place] | [place] [address] | | | | | [address] | [phone] | | | | | [phone] | | | +--------+ + + + [...] puffs into | 1 | 5 | 12/03/20 | | | mcg/puff inhaler | the [...] | | | | | [place] [address] | | | | | | [phone] | | | | | | | [...]
--- OUTSIDE RECORDS SUMMARY | ~2018-11-09 | XMS | Encounter Summary ---
Demographics + + + | Address | [address] | | | [place] [address] | + + + | Home Phone [...] + +------+ + | Care Records Management Engineer Name | Role | Phone [...] ANP | Assessment | | | | [facility] | | | | | | [address] | | | | | | Mail Code: CH15P | | | | | | [facility] | | | | | | and Healing, | | | | | | Floor [place], [place] | | | | | | [address] | | | | | | [phone] | | | +--------+ + + + [...]
--- OUTSIDE RECORDS SUMMARY | ~2018-11-09 | XMS | Encounter Summary ---
Demographics + + + | Address | [address] | | | [place] [address] | + + + | Home Phone [...] Providers + +------+ + | Care Long Term Care Administrator Name | Role | Phone | [...] | | | | | | [place], | | | | | | | [place] | | | | | | | [address] | | | | | | | Phone: | | | | | | | [phone] | | | | | | | Fax: | | | | | | | [phone] | +--------+--------+ + + + + Encounter Details +--------+---------+ + + + | Date | Type | Department | Care Team | Description | +--------+---------+ + + + | 11/10/ | Office | Digestive Health | Chris Padgett, | Status Post | | 2007 | Visit | [place] [address] | [address] | Bariatric Surgery; | | | | [address] Mailcode: | [address] | Abdominal Pain, | | | | [facility] Center for | [place], [place] | Other Specified Site | | | | Health and Healing, | [address] | | | | | [facility] floor [place], | [phone] | | | | | [place] [address] | | | | | | [phone] | | | +--------+---------+ + + + [...]
--- OUTSIDE RECORDS SUMMARY | ~2018-11-09 | XMS | Encounter Summary ---
Demographics + + + | Address | [address] | | | [place] [address] | + + + | Home Phone [...] Providers + +------+ + | Care Sample Stitcher Name | Role | Phone | [...]
--- OUTSIDE RECORDS SUMMARY | ~2018-11-09 | XMS | Encounter Summary ---
Demographics + + + | Address | [address] | | | [place] [address] | + + + | Home Phone [...] Team Providers + +------+ + | Care Gluing Machine Operator Name | Role | [...] 05/29/ | Office | Pain Center at [facility] | Lukasz Charles, | Major Depressive | | 2005 | Visit | 15th Floor [address] | PhD [address] | Disorder, Recurrent | | | | [address] Mail | Ave [place], [place] | Episode, Moderate | | | | Code: [facility] | [address] | ([facility]); Chronic | | | | for Health and | [phone] | Abdominal Pain; | | | | Healing, 15th Floor | | Cervical Pain; | | | | [place], [place] | | Headache; Adjustment | | | | [address] | | Disorder with | | | | [phone] | | Anxiety; Other Pain | | [...] Notes Lukasz Charles - 05/29/2006 6:15 PM [facility] Initial Psychological Wendy luation IDENTIFYING INFORMATION: Belinda Meehan is a 46 y.o. female Date of : 1960 Consulting Physician: LUKASZ CHARLES PHD Consultation Date: 05/29/2006 Referring Provider: Carlos Arreola Identifying Information: Belinda Meehan is a 46 y.o. female who lives in [facility] [place] her 2 sons. The patient was referred [...] disability benefits. 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 Marital History: , not currently in a [...] Punishing R esponses and general Activity. Conclusions: Belinad Meehan is a 46 y.o. female with [...] and decreasing depression and anx iety. Diagnosis: [place] I: 1. (296.32) Major depressive disorder, recurrent, moderate. 2. (309.24) Adjustment disorder with anxiety. 3. 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 [place] II: Deferred [place] III: abdominal pain, migraine headache, low back pain. [place] IV: low finances [place] V: GAF 50 Recommendations: 1. Psychological counseling to increase knowledge and use of cognitive and behavioral pain coping skills is recommended. The treatment should include relaxation training to improve c ontrol over physiologic responses to pain. Treatment should also focus on decreasing sympto ms of depression and increasing participation in social, recreational and leisure activities . Ms. 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 LUKASZ CHARLES PHD [facility], 4th [place] [address] documented in this encount er Plan of Treatment + + +--------+ + + | Name | Type | Priori | Associated Diagnoses | Order Schedule | | | | ty | | | + + +--------+ + + | [facility] | Procedures | Routin | Major [...]
--- OUTSIDE RECORDS SUMMARY | ~2018-11-09 | XMS | Encounter Summary ---
Demographics + + + | Address | [address] | | | [place] [address] | + + + | Home Phone [...] Team Providers + +------+ + | Care Enforcement Officer Name | Role | Phone | [...] [address] | | | | | | [place], [place] | | | | | | [address] | | | | | | [phone] | | | +--------+--------+ + + + [...]
--- OUTSIDE RECORDS SUMMARY | ~2018-11-09 | XMS | Encounter Summary ---
Demographics + + + | Address | [address] | | | [place] [address] | + + + | Home Phone [...] Team Providers + +------+ + | Care Logging Rafter Laborer Name | Role | Phone | [...] as of this encounter Discharge Summaries Interface, Costumer Assistant In - 08/30/2005 2:07 AM PST [id number] GEOVANNI Barnes Admission Date: 07/24/2005 Discharge Date: [...] for an appointment. Joanna Ritchie M.D. / [id number] / [id number] / [id number] / Electronically signed by Chris Padgett 08-29-2005 03:28:23 PM documented i n this encounter Plan of Treatment Not on filedocumented as of this encounter Visit Diagnoses Not on filedocumented in this encounter"
--- OUTSIDE RECORDS SUMMARY | ~2018-11-09 | XMS | Encounter Summary ---
Demographics + + + | Address | [address] | | | [place] [address] | + + + | Home Phone [...] Providers + +------+ + | Care Connie Cleaner Name | Role | Phone | [...] | [facility] [address] | MUD CLEANER OPERATOR | Disc Disease; | | | | [facility] | | Fibromyalgia | | | | [facility] | | | | | | [place], [place] | | | | | | [address] | | | | | | [phone] | | | +--------+---------+ + + + [...] the original. Subjective: I periodically see Belinda Mehean for Fibromyalgia. She had low back disc s urgery with pins and fixation 6 weeks ago. She could not be specific exactly which discs or procedure was done, but thinsk it was L4-5 and L5/S1 discs. She has had good results, the le g numbness is gone and much of the LBP is gone. Dr. Ricky smith [place] was her surgeon. She think s a [...] 300 mg) by oral route once daily wlztfeuepp-iqsqcpqyvdwpx-vbpuqfpp (FIORICET) 50-325-40 mg Oral Tablet take 2 [...] + + +--------+ + + | IN INJECT TRIGGER | Procedures | Routin | [...]
--- OUTSIDE RECORDS SUMMARY | ~2018-11-09 | XMS | Encounter Summary ---
Demographics + + + | Address | [address] | | | [place] [address] | + + + | Home Phone [...] Team Providers + +------+ + | Care Rest Room Maid Name | Role | Phone | [...] as of this encounter Progress Notes Interface, Inventory Controller In - 03/26/2006 1:05 AM [facility] [place] [address] [place], [place] [address] or February 22, 2001 Pedrito Gutierrez M.D. [facility] [address] [place] [address] RE: BELINDA MEEHAN MR #: [id number] Dear [...] regarding this patient. Sincerely, Issac Meeks M.D. packager and strapper Division of Endocrinology, Diabetes, and Clinical Plastics Nurse, Metabolic Disorders Clinic PBD / HS [id number] / [id number] / [id number] / [id number] signed by Interface, Inventory Controller In at 03/26/2006 1:05 AM PDTdocume nted in this encounter Plan of Treatment Not on filedocumented as of this encounter Visit Diagnoses Not on filedocumented in this encounter
--- OUTSIDE RECORDS SUMMARY | ~2018-11-09 | XMS | Encounter Summary ---
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 female [facility] Pain [facility] Return Visit Chief Complaint: Chief Complaint Patient presents with LBP - Low back pain both legs History of Present Illness: Belinda Meehan is a 46 y.o. 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 She reports resolusiton of the the right heel bone spur and plantar facia pain working with exercises and her bag valver. Belinda Meehan is here today for a [...] until surgery pending 02/13 12/19. DELFINA MOLINA [facility] Comprehensive Pain Center Mail code CH 4P [place] [facility] and [address] [address] Ailyn Foster - 01/12/20 07 [...]
--- OUTSIDE RECORDS SUMMARY | ~2018-11-09 | XMS | Encounter Summary ---
Demographics + + + | Address | [address] | | | [place] [address] | + + + | Home Phone [...] as of this encounter Progress Notes Interface, Stockroom Inventory Clerk In - 04/07/2006 2:32 AM PDT [id number] GEOVANNI SKELTON Molly [id number] Clinic Date: 04/01/2006 Clinic: Rheumatology Belinda Meehan is here for a couple of trigger point injections. She comes from [place]. Tomorrow, she is due for an EGD [...] 4 months. Caitlin Rivera M.S., F.N.P. / [id number] / [id number] / [id number] / [id number] Electronically signed by Caitlin Rivera 04-06-2006 03:23:35 PM documented i n this encounter Plan of Treatment Not on filedocumented as of this encounter Visit Diagnoses Not on filedocumented in this encounter"
--- OUTSIDE RECORDS SUMMARY | ~2018-11-09 | XMS | Encounter Summary ---
[...] Providers + +------+ + | Care Radio Frequency Design Engineer Name | Role | Phone [...] 03/26/ | Telephone | Orthopaedics at | aHi Hoyos, | Prescription renewal | | 2008 | | [facility] [address] | | | | | | [facility] | | | | | | Mailcode: PV430 | | | | | | Physician's [place] | | | | | | [place], [place] | | | | | | [address] | | | | | | [phone] | | | +--------+ + + + [...]
--- OUTSIDE RECORDS SUMMARY | ~2018-11-09 | XMS | Encounter Summary ---
Demographics + + + | Address | [address] | | | [place] [address] | + + + | Home Phone [...] + +------+ + | Care Renewable Energy Consultant Name | Role | Phone | [...] 2005 | Activity | Sara Hartley | [address] [facility] | | | | | [facility] Mailcode: | [address] | | | | | RPB07 [place], [place] | [place], [place] | | | | | [address] | [address] | | | | | [phone] | [phone] | | | | | | | [...]
--- OUTSIDE RECORDS SUMMARY | ~2018-11-09 | XMS | Encounter Summary ---
Demographics + + + | Address | [address] | | | [place] [address] | + + + | Home Phone [...] Team Providers + +------+ + | Care Topographical Engineer Name | Role | Phone | [...] Pain; Cervical Pain; | | | | [facility] | | Joint pain 719.40; | | | | [address] | | Depression | | | | Mail Code: CH15P | | | | | | [facility] | | | | | | and Healing, | | | | | | Floor [place], [place] | | | | | | [address] | | | | | | [phone] | | | +--------+---------+ + + + [...] at the [facility] in [place]. 3. Patient will be referred for a Psychology evaluation here at the [facility]. 4. Following the completion of these evaluations, [...] Belinda Meehan is a 46 y.o. female [id number] Chief Complaint: Patient presents with: Pain - [...] as PAIN MEDICINES: Opioids: Hydrocodone (Vicodin, Lortab, [place]): Why stopped?: don't remember. Came off due [...] HX SALPINGO-OOPHORECTOMY COLONOSCOPY Comment: 03/2006 HX TONSILLECTOMY MD D&C AFTER DELIVERY MD INJECT TRIGGER POINT, 1 OR 2 Family [...] a Physical Therapy evaluation here at the [facility]. 3. Patient will be referred for a Psychology evaluation here at the [facility] er. 4. Following the completion of [...] you for referring [facility] [place] for a chronic pain management evaluation. I trust that you will find the recomm endations satisfactory and that you will be able to implement these in the care of your mehreen ent. Should you have any concerns or questions, please contact me, I would be happy to add ress those with you. DELFINA MOLINA [facility] [place] Mail code CH 4P [place] [facility] [address] [place] [address] [place] [address] meryTasha - 05/29/2006 1:51 PM [...] drinking? no -Do you ever drink an eye-tool designer in the morning to relieve the shakes? [...] stressful life experiences recently? 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 What do you expect from our pain program? Help in coping with the pain 24. What types of treatment do you expect from your visits to the [facility] ? Stress Management [...]
--- OUTSIDE RECORDS SUMMARY | ~2018-11-09 | XMS | Encounter Summary ---
Demographics + + + | Address | [address] | | | [place] [address] | + + + | Home Phone [...] + +------+ + | Care Deputy Sheriff Generalist/Bailiff Name | Role | Phone | + [...] as of this encounter Progress Notes Interface, Slubber Machine Operator In - 01/11/2005 6:26 PM PDTClinic Date: [...] bypass surgery. Dwaine Al M.D. LEDY / [id number] / [id number] / [id number] / Tdocumented in this encounter Plan of Treatment Not on filedocumented as of this encounter Visit Diagnoses Not on filedocumented in this encounter"
--- OUTSIDE RECORDS SUMMARY | ~2018-11-09 | XMS | Encounter Summary ---
Demographics + + + | Address | [address] | | | [place] [address] | + + + | Home Phone [...] Providers + +------+ + | Care Residential Roofer Name | Role | Phone | [...] Neurology 3303 | | | | | [facility] | [address] | | | | | Mailcode: CR131 | [place], [place] | | | | | Outpatient Clinic | [address] | | | | | [facility], | [phone] | | | | | [place] [address] | | | | | | [phone] | | | +--------+ + + + [...] | | | | | 2,SERUM | [facility] | | | | | | Laboratories. | | | | + + + + + + + + | Specimen | + + | | + + + + + + + | Performing | Address | City/State/Zipcode | Phone Number | | Organization | | | | + + + + + | [facility] | [address] | [place] [address] | | | LABORATORY | | | | + + + + + documented in this encounter Visit Diagnoses Not on filedocumented in this encounter"
--- OUTSIDE RECORDS SUMMARY | ~2018-11-09 | XMS | Encounter Summary ---
Demographics + + + | Address | [address] | | | [place] [address] | + + + | Home Phone [...] Team Providers + +------+ + | Care Caser Up Name | Role | Phone | [...] | | | | | Procedures | [address] | | | | | | CONSULT TO | [address] | | | | | | NEUROLOGY | [place], [place] | | | | | | | [address] | | +--------+--------+ + + + + Reason for Visit + + + | Reason | Comments | + + + | Back pain | | + + + Encounter Details +--------+---------+ + + + | Date | Type | Department | Care Team | Description | +--------+---------+ + + + | 10/03/ | Office | [facility] Comprehensive | Miranda Lambert, | Falling; | | 2009 | Visit | Pain Center at | ANP | Fibromyalgia; LBP | | | | [facility] | | (low back pain); | | | | [address] | | Encounter for | | | | Mail Code: CH15P | | Long-Term (Current) | | | [facility] | | Use of Opioids; | | | | and | | Hypothyroidism; | | | | Floor [place], [place] | | Metabolic syndrome X | | | | [address] | | 250.80; Major | | | | [phone] | | depressive disorder, | | | [...] Schedule an appointment with Dr. Cesar SHEEHAN [facility] Neurology - If you continue to fall [...] Belinda Meehan is a 49 y.o. female [facility] Comprehensive Pain Center Return Visit [...] reviewed. [facility] Brief Pain Inventory: (ten= worst [...] it no help 4. Dr. Ricky SHEEHAN [facility] spine did spine surgery last seen [...] plans or intentions Started gabapentin 08/14/09 Dr Garíca prescribed for back pain instructed to stopped [...] 08/2007 right knee Hx lumbar fusion 05/2008 [id number] with bone spur removals Hx appendectomy Hx cholecystectomy Hx section Hx hysterectomy Gastric bypass Mayra Padgett wt 278 01/18 Paniculectomy Family History Problem Relation Cancer Mother Heart Father Additional Family History Father Migraine Additional Family History Mother Migraine Taniya Guerrero MD [facility] Neurology 2007 evaluation of migraines: Impression: Belinda [...] the names of 3 headache specialists in [place]- Dr. Koby García, Dr. Dakota Sweet and [...] a neurologist Dr. 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 Guerrero, for falls workup. Dr. [...] taper off gabapentin 2. Order for [facility] neurology Dr. Taniya Guerrero if falls continue [...] COMPREHENSIVE PAIN CENTER Mail code CH 4P [place] [facility] [address] [place] [address] Ailyn Foster 1:03 PM PDTCMA History: [...]
--- OUTSIDE RECORDS SUMMARY | ~2018-11-09 | XMS | Encounter Summary ---
Demographics + + + | Address | [address] | | | [place] [address] | + + + | Home Phone [...] + + | 04/08/ | Telephone | [facility] Division of | Carlos Arreola, | Swelling | | 2005 | | Gastroenterology/Hep | [address] | (INTESTINES) | | | | atology [address] | | | | | [address] | [place] [address] | | | | | Road Mailcode: | [phone] | | | | | PV310 Physicians | | | | | | [address] | | | | | | [place], [place] | | | | | | [address] | | | | | | [phone] | | | +--------+ + + + [...]
--- OUTSIDE RECORDS SUMMARY | ~2018-11-09 | XMS | Encounter Summary ---
Demographics + + + | Address | [address] | | | [place] [address] | + + + | Home Phone [...] Providers + +------+ + | Care Brush Finisher Name | Role | Phone | [...] [address] | | | | | | [place], [place] | | | | | | [address] | | | | | | [phone] | | | +--------+ + + + [...]
--- OUTSIDE RECORDS SUMMARY | ~2018-11-09 | XMS | Encounter Summary ---
Demographics + + + | Address | [address] | | | [place] [address] | + + + | Home Phone [...] | hypertension 401.9; | | | | [place], [place] | | Type II or | | | | [address] | | unspecified type | | | | [phone] | | diabetes mellitus | | | [...] | | | LABORATORY | | | SAMOAN | | | SERVICES, | | | [...] | + + + + + | [facility] | [address] | [place] [address] | | | SERVICES, CORE | [address] [...] | + + + + + | [facility] | [address] | [place] [address] | | | SERVICES, CORE | [place] [...] | | | Information If | | [facility] | | | | you are screening [...] + | [facility] - | [address] | [place] [address] | | | [place] | | | [...] [facility] | [address] | [place] [address] | | | SERVICES, SPECIAL | PARK [...] [facility] | [address] | [place] [address] | | | SERVICES, CORE | PARK [...] [facility] | [address] | [place] [address] | | | SERVICES, SPECIAL | PARK [...] by | | | | | | [place],[address] | | | | | | Abdiaziz Morales, [facility] | | | | | | [address] | | | | | | [phone].Razient. | | | | | | abraham, [...] [facility] | [address] | [place], [place] | | | UN[facility] | | [address] | | + + + + + [...] | + + + + + | [facility] | [address] | [place] [address] | | | SERVICES, SPECIAL | PARK [...] + | [facility] | [address] | [place] [address] | | | [place] | | | [...]
--- OUTSIDE RECORDS SUMMARY | ~2018-11-09 | XMS | Encounter Summary ---
Demographics + + + | Address | [address] | | | [place] [address] | + + + | Home Phone [...] Providers + +------+ + | Care Car Tracer Name | Role | Phone | + [...] | | | [facility] | [place], [place] | | | | | Health and Healing, | [address] | | | | | 6th floor [place], | [phone] | | | | | [place] [address] | | | | | | [phone] | | | +--------+ + + + [...]
--- OUTSIDE RECORDS SUMMARY | ~2018-11-09 | XMS | Encounter Summary ---
Demographics + + + | Address | [address] | | | [place] [address] | + + + | Home Phone [...] Team Providers + +------+ + | Care Poleyard Supervisor Name | Role | Phone | [...] | Registratio | [address] | [address] | | | | n | [facility] Mailcode: | [place], [place] | | | | | RPB07 [place], [place] | [address] | | | | | [address] | [phone] | | | | | [phone] | | | +--------+ + + + [...] [facility] | [address] | [place], [place] | | | UN[facility] P[facility] - INTFC | | [address] | | + + + + + [...] | | | | | [facility] | | | | | | [facility]. | | | | + + + + + + + + | Specimen | + + | | + + + + + + + | Performing | Address | City/State/Zipcode | Phone Number | | Organization | | | | + + + + + | [facility] | [address] | [place] [address] | | | LABORATORY | | | [...] [facility] DEPARTMENT OF | [address] | [place] [address] | | | PATHOLOGY | [address] | | | + + + + + | [facility] DEPARTMENT OF | [address] | [place] [address] | | | PATHOLOGY | [address] [...] + | [place] DEPARTMENT OF | [address] | [place] [address] | | | PATHOLOGY | [address] | | | + + + + + | [place] DEPARTMENT OF | [address] | [place] [address] | | | PATHOLOGY | [address] [...] Performed At | + + + | [id number] Estimated GFR > 60 mL/min/1.73 sq m if non- | [facility] | | [id number] Estimated GFR > 60 mL/min/1.73 sq m [...] | [facility] | [address] | [place] [address] | | | PATHOLOGY | [address] | | | + + + + + | [facility] | [address] | [place] [address] | | | PATHOLOGY | [address] | | | + + + + + documented in this encounter Visit Diagnoses Not on filedocumented in this encounter"
--- OUTSIDE RECORDS SUMMARY | ~2018-11-09 | XMS | Encounter Summary ---
Demographics + + + | Address | [address] | | | [place] [address] | + + + | Home Phone [...] Providers + +------+ + | Care Commercial Door Installer Name | Role | Phone | [...] | | | | Clinical Nutrition | [place], [place] | | | | | [address] | [address] | | | | | [facility] | [phone] | | | | | Mailcode: OPC5 | | | | | | Outpatient Clinic | | | | | | [facility] | | | | | | [place] [address] | | | | | | [phone] | | | +--------+ + + + [...] | + + + + + | [facility] | [address] | [place] [address] | | | LABORATORY | | | [...] + + + + + | [facility] | [address] | [place] [address] | | | LABORATORY | | | [...] + + + + + | [facility] | [address] | [place] [address] | | | LABORATORY | | | | + + + + + documented in this encounter Visit Diagnoses Not on filedocumented in this encounter"
--- OUTSIDE RECORDS SUMMARY | ~2018-11-09 | XMS | Encounter Summary ---
Demographics + + + | Address | [address] | | | [place] [address] | + + + | Home Phone [...] +------+ + | Care Travel Registered Nurse Icu Name | Role | Phone | + [...] | [facility] [address] | PLUMBER PIPE FITTING | syndrome 729.1 | | | | [address] | | (Primary Dx); | | | | Physicians [place] | | Fibromyalgia | | | | [place], [place] | | | | | | [address] | | | | | | [phone] | | | +--------+---------+ + + + [...] + + +--------+ + + | DC INJECT TRIGGER | Procedures | Routin | [...]
--- OUTSIDE RECORDS SUMMARY | ~2018-11-09 | XMS | Encounter Summary ---
Demographics + + + | Address | [address] | | | [place] [address] | + + + | Home Phone [...] Team Providers + +------+ + | Care Woodwind Instruments Inspector Name | Role | Phone | [...] Closed | | Endocrinology | Diagnoses | Bassam, | Constantino, | | | | , Diabetes & | H/O gastric | Patricia Lopez NP | MD Beto | | | | Metabolism | bypass | [address] | [address] | | | | | Hypovitamino | [address], | Ave | | | | | sis D [address] | [address] | [place], [place] | | | | | nutritional | [place] | [address] | | | | | deficiency | [address] | Phone: | | | | | Other | Phone: | [phone] | | | | | protein-jose manuel | [phone] | Fax: | | | | | nick | Fax: | [phone] | | | | | malnutrition | [phone] | | | | | | Weight | | | | | | | gain | | | | | | | Procedures | | | | | | | CONSULT TO | | | | | | | ENDO | | | | | | | [address] | | | | | | | [address] | | | +--------+--------+ + + + [...] | | | | | | | [address] | | | | | | | Mailcode: | | | | | | | [place] for | | | | | | | Health and | | | | | | | Healing, | | | | | | | Building [address] | | | | | | | [place], [place] | | | | | | | [address] | | | | | | | Phone: | | | | | | | [phone] | | | | | | | Fax: | | | | | | | [phone] | +--------+--------+ + + + + Encounter Details +--------+---------+ + + + | Date | Type | Department | Care Team | Description | +--------+---------+ + + + | 09/23/ | Office | Digestive Health | Patricia Banegas, | H/O gastric bypass | | 2013 | Visit | Center at [facility] [address] | MACHINE SET UP OPERATOR PAPER GOODS [address] | (Primary Dx); | | | | [address] | , [address] | Hypovitaminosis D; | | | | Mailcode: Center | [facility] [place] | B12 nutritional | | | | for Health and | [address] | deficiency; Other | | | | Healing, Building 2 | [phone] | protein-calorie | | | | [facility] [place] | | malnutrition; Weight | | | | [address] | | gain; Teeth decayed | | | | [phone] | | | +--------+---------+ + + + [...] with iron, take twice the adult dose (kristentones: two daily) Additional supplements may be recommended [...] make an appt with me Calories approx. 5315-9773 per day when 3 mos or more out from surgery to maintain weight l oss. Calories may need to be adjusted up for individual needs. I recommend eating 5-6 times per day. Teak.FoKo Protein 60-100+ gms per day Water: 64 oz per day, your urine should be light yellow. Please let up know if you would like a referral to see the Head Operator. I would be happy to put in referrals to [facility], medical membership is $198 for 3 mos. If you are 12 mos or more out from surgery and would like referral for excess skin removal please let us know. Call us if you have any questions or concerns, or send VendRx message for non-urgent issue sYudy Banegas RN, [facility] Nurse Practitioner for Bariatric Surgery Formerly named [facility] | [address] | [place], [place] | [address] | documented in this encounter Progress Notes [...] Hives Mainly in the legs Clindamycin Codeine Xfqyuuv-Zrwjogsqku-Arp-Caff Balance problems Fioricet W/Codeine (Glclxiiltx-Ffdxflzjpd-Qkm-Cod) Keflex (Cephalexin) Morphine IM ( only in [facility] [...] replacement 08/2007 right knee Lumbar fusion 05/2008 L5-W5rrigls with bone spur removals Appendectomy Cholecystectomy section Hysterectomy Gastric bypass aMyra Padgett wt 278 01/18 Paniculectomy History Social [...] to POC and will call or send Sentilla message if any issues. Start time 1325, end time 1353. I spent a total of 28 minutes face to face with this patie nt. Over 50% of visit was in counseling. ~ 2 Minutes of additional time spent reviewing chart prior to visit and documenting after t his visit. Patricia Banegas RN, [facility] Nurse Practitioner for Bariatric Surgery Formerly named [facility] | [address] | [place], [place] | [address] | documented in this e ncounter Plan [...]
--- OUTSIDE RECORDS SUMMARY | ~2018-11-09 | XMS | Encounter Summary ---
Demographics + + + | Address | [address] | | | [place] [address] | + + + | Home Phone [...] Providers + +------+ + | Care Caustic Plant Worker Name | Role | Phone | [...] [address] | | | | | [facility] | [place], [place] | | | | | [address] | [address] | | | | | [address] | [phone] | | | | | [facility] Physicians | | | | | | [facility] | | | | | | [facility] | | | | | | [place] [address] | | | | | | [phone] | | | +--------+ + + + [...]
--- OUTSIDE RECORDS SUMMARY | ~2018-11-09 | XMS | Encounter Summary ---
Demographics + + + | Address | [address] | | | [place] [address] | + + + | Home Phone [...] Team Providers + +------+ + | Care Labeling Machine Operator Name | Role | Phone [...] | ANP | | | | | [facility] | | | | | | [address] | | | | | | Mail Code: CH15 | | | | | | [place] [facility] | | | | | | and Healing,15 | | | | | | Floor [place], [place] | | | | | | [address] | | | | | | [phone] | | | +--------+ + + + [...]
--- OUTSIDE RECORDS SUMMARY | ~2018-11-09 | XMS | Encounter Summary ---
Demographics + + + | Address | [address] | | | [place] [address] | + + + | Home Phone [...] Organization | [facility] | | | and [...] Providers + +------+ + | Care Car Starter Name | Role | Phone | + [...] | | | [place], | [place] [address] | | | | | | [place] | Phone: | | | | | | [address] | [phone] | | | | | | Phone: | Fax: | | | | | | [phone] | [phone] | | | | | | Fax: | | | | | | | [phone] | | + + + + + + + Reason for Visit + + + | Reason | Comments | + + + | Medication Question | | + + + Encounter Details +--------+ + + + + | Date | Type | Department | Care Team | Description | +--------+ + + + + | 08/13/ | Telephone | [facility] INTER[facility] | Alanis, | Medication Question | | 2018 | | MEDICINE [address] [place] [address] | MD Petrona | | | | | [facility] | [address] [place] [address] | | | | | [place] [address] | [place] [address] | | | | | [phone] | [phone] | | | | | | | [...] | | | | | | [address] [place] [address] [address] | | | | | | [place] [address] | | | | | | [phone] | | | | | | | [...]
--- OUTSIDE RECORDS SUMMARY | ~2018-11-09 | XMS | Encounter Summary ---
Demographics + + + | Address | [address] | | | [place] [address] | + + + | Home Phone [...] Providers + +------+ + | Care Blast Hole Driller Name | Role | Phone | [...] | | 2003 | anned | [address] [facility] | | | | | | [facility] | | | | | | [place], [place] | | | | | | [address] | | | +--------+ + + + [...]
--- OUTSIDE RECORDS SUMMARY | ~2018-11-09 | XMS | Encounter Summary ---
Demographics + + + | Address | [address] | | | [place] [address] | + + + | Home Phone [...] Providers + +------+ + | Care Security Checker Name | Role | Phone | [...] Lab findings, | | 2007 | | Center [address] | [address] | teaching, guidance, | | | | Mychal Kovacs Mailcode: | [address] | and counseling (labs | | | | [facility] Center for | [place], [place] | done on 07/01/07) | | | | Health and Healing, | [address] | | | | | [address] [place] [address], | [phone] | | | | | [place] [address] | | | | | | [phone] | | | +--------+ + + + [...]
--- OUTSIDE RECORDS SUMMARY | ~2018-11-09 | XMS | Encounter Summary ---
Demographics + + + | Address | [address] | | | [place] [address] | + + + | Home Phone [...] Team Providers + +------+ + | Care Knitting Inspector Name | Role | Phone | [...] of this encounter Progress Notes Interface, Senior Lead Developer In - 02/15/2006 2:03 AM PDT [id number] GEOVANNI SKELTON Molly [id number] Clinic Date: 10/23/2005 Clinic: Endocrinology Subjective: Belinda [...] her back on October 06, 2005, in [place], [place]. This study showed a moderate central disk bulge at L4-L5 consistent with a herniated nucleus pulposus. There has been some discussion by her physicians in [place] about the possibility of giving her epidural [...] most recent laboratory studies were performed in [place] on July 02, 2005. At that time, [...] months. Beto Meeks M.D. PD / HS [id number] / [id number] / [id number] / cc: Joanna Arshad M.D. [address] [place] [address] Electronically signed by Beto Meeks 02-14-2006 02:02:42 AM documented i n this encounter Plan of Treatment Not on filedocumented as of this encounter Visit Diagnoses Not on filedocumented in this encounter"
--- OUTSIDE RECORDS SUMMARY | ~2018-11-09 | XMS | Encounter Summary ---
Demographics + + + | Address | [address] | | | [place] [address] | + + + | Home Phone [...] Team Providers + +------+ + | Care Blower Operator Name | Role | Phone | [...] as of this encounter Progress Notes Interface, Status Controller In - 01/11/2005 8:56 PM PDTClinic Date: [...] bypass surgery and will be admitted to [facility] for this procedure on November [...] Ester Romero M.D. Issac Meeks M.D. / [id number] / [id number] / [id number] / [id number] Tdocumented in this encounter Plan of Treatment Not on filedocumented as of this encounter Visit Diagnoses Not on filedocumented in this encounter"
--- OUTSIDE RECORDS SUMMARY | ~2018-11-09 | XMS | Encounter Summary ---
Demographics + + + | Address | [address] | | | [place] [address] | + + + | Home Phone [...] Team Providers + +------+ + | Care Bowling Alley Floors Installer Name | Role | Phone | [...]
--- OUTSIDE RECORDS SUMMARY | ~2018-11-09 | XMS | Encounter Summary ---
Demographics + + + | Address | [address] | | | [place] [address] | + + + | Home Phone [...] + +------+ + | Care Director Of [facility] Service Center Name | Role | Phone | + +------+ + | Maria Esther Cintron MD | PCP | Unavailable | + +------+ + Encounter Details +--------+ + + + + | Date | Type | Department | Care Team | Description | +--------+ + + + + | 08/26/ | Telephone | Digestive Health | Chris Padgett, | | | 2010 | | [place] [address] | [address] | | | | | Mychal Kovacs Mailcode: | [address] | | | | | [address] | [place], [place] | | | | | Health and Healing, | [address] | | | | | 6th floor [place], | [phone] | | | | | [place] [address] | | | | | | [phone] | | | +--------+ + + + [...]
--- OUTSIDE RECORDS SUMMARY | ~2018-11-09 | XMS | Encounter Summary ---
Demographics + + + | Address | [address] | | | [place] [address] | + + + | Home Phone [...] Providers + +------+ + | Care Fish Packer Name | Role | Phone | [...] | Urinary | MD Chris | General Chh | | | | | incontinence | [address] | [address] | | | | | Procedures | Jayce Harltey | Avjennifer Mail | | | | | CONSULT TO | [address] | Code: CH10U | | | | | SURGERY - | [place], [place] | [facility] | | | | | UROLOGY | [address] | Health and | | | | | | Phone: | | | | | | | [phone] | Floor | | | | | | Fax: | [place], [place] | | | | | | [phone] | [address] | | | | | | | Phone: | | | | | | | [phone] | | | | | | | Fax: | | | | | | | [phone] | +--------+--------+ + + + + Reason for Visit + + + | Reason | Comments | + + + | Follow-up visit | | + + + Encounter Details +--------+---------+ + + + | Date | Type | Department | Care Team | Description | +--------+---------+ + + + | 10/29/ | Office | Digestive Health | LorinChris, | Urinary Incontinence | | 2006 | Visit | Center [address] | [address] | (Primary Dx); | | | | Mychal Kovacs Mailcode: | [address] | Status Post | | | | [facility] Center for | [place], [place] | Bariatric Surgery | | | | Health and [facility], | [address] | | | | | 6th floor [place], | [phone] | | | | | [place] [address] | | | | | | [phone] | | | +--------+---------+ + + + [...] coughing. Medications: Fentanyl 25 mcg 72 hours, Quenemo/JOJO 10 mg/325 mg PRN Q 6 hrs, [...] kg ( 206 lbs 14.4 oz) GEN: NEENA, John HEENT: WNL CV: RRR no M/R/G Resp: [...]
--- OUTSIDE RECORDS SUMMARY | ~2018-11-09 | XMS | Encounter Summary ---
Demographics + + + | Address | [address] | | | [place] [address] | + + + | Home Phone [...] Team Providers + +------+ + | Care Graduation Coach Name | Role | Phone | [...] + + | 03/31/ | Office | [facility] | PetraDelfina, | Encounter for | | 2006 | Visit | Pain Center at | ANP | Long-Term (Current) | | | | [facility] | | Use of Opioids; Left | | | | [address] | | Knee Pain; | | | | Mail Code: CH15P | | Arthroplasty of the | | | | [facility] | | Left Knee; DJD | | | | and Healing, | | (Degenerative Joint | | | | Floor [place], [place] | | Disease) of Knee; | | | | [address] | | Fibromyalgia | | | | [phone] | | syndrome 729.1; | | | [...] Belinda Meehan is a 47 y.o. female [facility] Comprehensive Pain [...] value in her continuing here at the [facility] until her bilateral [...] any concerns or questions. DELFINA MOLINA [facility] Mail code CH 4P [facility] and [address] [address] Tasha Can - 03/31/2007 9:15 [...]
--- OUTSIDE RECORDS SUMMARY | ~2018-11-09 | XMS | Encounter Summary ---
Demographics + + + | Address | [address] | | | [place] [address] | + + + | Home Phone [...] Providers + +------+ + | Care Language Translator Name | Role | Phone | + +------+ + | Pedrito Gutierrez MD | PCP | | + +------+ + Encounter Details +--------+ + + + + | Date | Type | Department | Care Team | Description | +--------+ + + + + | 04/17/ | Telephone | [facility] Division of | Carlos Arreola, | | | 2005 | | Gastroenterology/Hep | MD Demetrio Eduardo | | | | | atology [address] | [address] | | | | | [address] | [place] [address] | | | | | Road Mailcode: | [phone] | | | | | [address]310 Physicians | | | | | | [facility] [address] | | | | | | [place], [place] | | | | | | [address] | | | | | | [phone] | | | +--------+ + + + [...]
--- OUTSIDE RECORDS SUMMARY | ~2018-11-09 | XMS | Encounter Summary ---
Demographics + + + | Address | [address] | | | [place] [address] | + + + | Home Phone [...] Team Providers + +------+ + | Care Pricing Intern Name | Role | Phone | [...] | | | | | | | [facility] | | | | | | | Physicians | | | | | | | Pavilion | | | | | | | Physicians | | | | | | | Pavilion | | | | | | | [place], [place] | | | | | | | [address] | | | | | | | Phone: | | | | | | | [phone] | | | | | | | Fax: | | | | | | | [phone] | +--------+--------+ + + + + Encounter [...] | | | Center [facility] | [place], [place] | Metabolic syndrome | | | | Pavilion [address] | [address] | X 250.80; Essential | | | | [address] | [phone] | hypertension 401.9; | | | | Road Physicians | | Fibromyalgia | | | | [facility] | | syndrome 729.1 | | | | Pavilion [place], | | | | | | [place] [address] | | | | | | [phone] | | | +--------+---------+ + + + [...] knee replacement do ne on 08/30/[address] [place] [address] Vasquez. Patient Active Problem List [...] by oral route once daily at bedti sc as needed Oxycodone HCl (OXYCONTIN) 40 mg [...]
--- OUTSIDE RECORDS SUMMARY | ~2018-11-09 | XMS | Encounter Summary ---
Demographics + + + | Address | [address] | | | [place] [address] | + + + | Home Phone [...] Team Providers + +------+ + | Care Pet Supplies Salesperson Name | Role | [...] as of this encounter Progress Notes Byron, Generalist In - 01/12/2005 6:46 AM PDTClinic Date: [...] months. Chris Padgett M.D. CD / HS [id number] / [id number] / [id number] / Tdocumented in this encounter Plan of Treatment Not on filedocumented as of this encounter Visit Diagnoses Not on filedocumented in this encounter"
--- OUTSIDE RECORDS SUMMARY | ~2018-11-09 | XMS | Encounter Summary ---
Demographics + + + | Address | [address] | | | [place] [address] | + + + | Home Phone [...] Providers + +------+ + | Care Traffic Line Painter Name | Role | Phone | [...] Jayce | | | | | | [facility] | | | | | | Mailcode: PV430 | | | | | | Physician's [address] | | | | | | [place], [place] | | | | | | [address] | | | | | | [phone] | | | +--------+ + + + [...]
--- OUTSIDE RECORDS SUMMARY | ~2018-11-09 | XMS | Encounter Summary ---
Demographics + + + | Address | [address] | | | [place] [address] | + + + | Home Phone [...] Providers + +------+ + | Care Felt Hat Steamer Name | Role | Phone | + [...] [address] | | | | | | [place], [place] | | | | | | [address] | | | | | | [phone] | | | +--------+ + + + [...]
--- OUTSIDE RECORDS SUMMARY | ~2018-11-09 | XMS | Encounter Summary ---
Demographics + + + | Address | [address] | | | [place] [address] | + + + | Home Phone [...] Providers + +------+ + | Care Clinical Assistant Name | Role | Phone | [...] [address] | | | | | [address] | [place], [place] | | | | | Health and Healing, | [address] | | | | | 6th floor [place], | [phone] | | | | | [place] [address] | | | | | | [phone] | | | +--------+ + + + [...]
--- OUTSIDE RECORDS SUMMARY | ~2018-11-09 | XMS | Encounter Summary ---
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
--- OUTSIDE RECORDS SUMMARY | ~2018-11-09 | XMS | Encounter Summary ---
Demographics + + + | Address | [address] | | | [place] [address] | + + + | Home Phone [...] Providers + +------+ + | Care Bindery Leadperson Name | Role | Phone | + [...] [address] | | | | | [facility] | [place], [place] | | | | | [address] | [address] | | | | | [facility] | [phone] | | | | | Road Physicians | | | | | | [facility] | | | | | | Pavilion [place], | | | | | | [place] [address] | | | | | | [phone] | | | +--------+--------+ + + + [...]
--- OUTSIDE RECORDS SUMMARY | ~2018-11-09 | XMS | Encounter Summary ---
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 female [facility] Comprehensive [...] and Independent Home Exercise Program DELFINA MOLINA [facility] Pain Center Mail code CH 4P [place] for Health and [address] [address] Ailyn Foster - 01/05/20 07 [...] medication refills today? yes documented in this [facility] Plan of Treatment Not on [...]
--- OUTSIDE RECORDS SUMMARY | ~2018-11-09 | XMS | Encounter Summary ---
Demographics + + + | Address | [address] | | | [place] [address] | + + + | Home Phone [...] Providers + +------+ + | Care Quality Director Name | Role | Phone | [...] Migraine | NIHARIKA Jean | [facility] [address] | | | | | headache | [address] | | | | | Procedures | [address] | Mail Code: | | | | | CONSULT TO | [place], [place] | [address] | | | | | NEUROLOGY | [address] | for Health | | | | | | | and Healing, | | | | | | | 8th floor | | | | | | | [place], [place] | | | | | | | [address] | | | | | | | Phone: | | | | | | | [phone] | | | | | | | Fax: | | | | | | | [phone] | +--------+--------+ + + + + Reason [...] (Primary Dx); | | | | [facility] | | 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 Health and [facility] [address] [facility] [address] Alisha Marquez - 7 [...]
--- OUTSIDE RECORDS SUMMARY | ~2018-11-09 | XMS | Encounter Summary ---
Demographics + + + | Address | [address] | | | [place] [address] | + + + | Home Phone [...] + | Organization | [facility] | | | and Jairana [...] Providers + +------+ + | Care Facility Assistant Name | Role | Phone | [...] + + | 11/03/ | Telephone | [facility] | Alanis, | Headache | | 2019 | | MEDICINE [address] [place] [address] | MD Petrona | | | | | [facility] | [address] [place] [address] | | | | | [place] [address] | [place] [address] | | | | | [phone] | [phone] | | | | | | | [...] | | | | | [place] [address] | | | | | | [phone] | | | | | | | | +--------+---------+ + + + documented as of this encounter Visit Diagnoses Not on filedocumented in this encounter"
--- OUTSIDE RECORDS SUMMARY | ~2018-11-09 | XMS | Encounter Summary ---
Demographics + + + | Address | [address] | | | [place] [address] | + + + | Home Phone [...] Providers + +------+ + | Care Travel Agency Manager Name | Role | Phone | [...] [address] | [address] | labs put in) | | | | Mychal Kovacs Mailcode: | [address] | | | | | [facility] Center for | [place], [place] | | | | | Health and Healing, | [address] | | | | | 6th floor [place], | [phone] | | | | | [place] [address] | | | | | | [phone] | | | +--------+ + + + [...]
--- OUTSIDE RECORDS SUMMARY | ~2018-11-09 | XMS | Encounter Summary ---
Demographics + + + | Address | [address] | | | [place] [address] | + + + | Home Phone [...] Providers + +------+ + | Care General Laborer Name | Role | Phone [...]
--- OUTSIDE RECORDS SUMMARY | ~2018-11-09 | XMS | Encounter Summary ---
Demographics + + + | Address | [address] | | | [place] [address] | + + + | Home Phone [...] Providers + +------+ + | Care Pen Or Pencil Assembly Machine Operator Name | Role | Phone [...] Pain; Status Post | | | | [place], [place] | | Bariatric Surgery | | | | [address] | | | | | | [phone] | | | +--------+------+ + + + [...] Performed At | + + + | [id number] Estimated GFR > 60 mL/min/1.73 sq m if non- | [facility] | | Algerian [id number] Estimated GFR > 60 mL/min/1.73 sq m if | DEPARTMENT OF | | Algerian GFR is estimated using the MDRD equation [...] + | [facility] | [address] | [place] [address] | | | PATHOLOGY | [address] | | | + + + + + | [facility] | [address] | [place] [address] | | | PATHOLOGY | [address] | | | + + + + + INR (08/28/2008 3:31 PM PDT) + + + + + + | Component | Value | Ref Range | Performed | Pathologist | | | | | At | Signature | + + + + + + | INR | 0.96Comment: | 0.90 - 1.20 INR | [facility] | | | | INR | [...] + + + + + | [facility] DE[facility] | [address] | [place] [address] | | | PATHOLOGY | [address] | | | + + + + + | [facility] DEPARTMENT OF | [address] | [place] [address] | | | PATHOLOGY | [address] | | | + + + + + documented in this encounter Visit Diagnoses + + | Diagnosis | + + | Chronic abdominal pain Abdominal pain, unspecified site | + + | Status post bariatric surgery Bariatric surgery status | + + documented in this encounter"
--- OUTSIDE RECORDS SUMMARY | ~2018-11-09 | XMS | Encounter Summary ---
Demographics + + + | Address | [address] | | | [place] [address] | + + + | Home Phone [...] | Registratio | [address] | [address] | | | | n | [facility] Mailcode: | [place], [place] | | | | | RPB07 [place], [place] | [address] | | | | | [address] | [phone] | | | | | [phone] | | | +--------+ + + + [...] DEPARTMENT OF | [address] | [place] [address] | | | PATHOLOGY | [address] | | | + + + + + | [place] DEPARTMENT | [address] | [place] [address] | | | PATHOLOGY | [address] [...] + + | [facility] DEPARTMENT | [address] [place] [address] | [place] [address] | | | PATHOLOGY | [address] | | | + + + + + | [facility] DEPARTMENT OF | [address] [place] [address] | [place] [address] | | | PATHOLOGY | [address] [...] | Nayeli/aida | | | | | [facility] [...] | + + + + + | [facility] | [address] | [place] [address] | | | LABORATORY | | | | + + + + + documented in this encounter Visit Diagnoses Not on filedocumented in this encounter"
--- OUTSIDE RECORDS SUMMARY | ~2018-11-09 | XMS | Encounter Summary ---
[...] Team Providers + +------+ + | Care Artist Model Name | Role | Phone | [...] of this encounter Progress Notes Interface, Client Leader In - 02/15/2006 2:03 AM PDT [id number] GEOVANNI SKELTON Molly [id number] Clinic Date: 10/23/2005 Clinic: Endocrinology Subjective: Belinda [...] her back on October 06, 2005, in [place], [place]. This study showed a moderate central disk bulge at L4-L5 consistent with a herniated nucleus pulposus. There has been some discussion by her physicians in [place] about the possibility of giving her epidural [...] most recent laboratory studies were performed in [place] on July 02, 2005. At that time, [...] months. Beto Meeks M.D. PD / HS [id number] / [id number] / [id number] / cc: Joanna Arshad M.D. [address] [place] [address] Electronically signed by Beto Meeks 02-14-2006 02:02:42 AM documented i n this encounter Plan of Treatment Not on filedocumented as of this encounter Visit Diagnoses Not on filedocumented in this encounter"
--- OUTSIDE RECORDS SUMMARY | ~2018-11-09 | XMS | Encounter Summary ---
Demographics + + + | Address | [address] | | | [place] [address] | + + + | Home Phone [...] Team Providers + +------+ + | Care U.S. Representative Name | Role | Phone | [...] + + | 08/10/ | Telephone | MARK Basilio | Rosi Antonio, | Fall Ground Level | | 2013 | | Pain Center at | ANP | | | | | [facility] | | | | | | [address] | | | | | | Mail Code: CH15P | | | | | | [facility] | | | | | | and Healing, | | | | | | Floor [place], [place] | | | | | | [address] | | | | | | [phone] | | | +--------+ + + + [...]
--- OUTSIDE RECORDS SUMMARY | ~2018-11-09 | XMS | Encounter Summary ---
Demographics + + + | Address | [address] | | | [place] [address] | + + + | Home Phone [...] Providers + +------+ + | Care Solderer Assembly Repair Name | Role | Phone | [...] | [facility] [address] | [address] [place], | Region; Herniated | | | | [address] Mail Code: | [place] [address] | Lumbar | | | | CH15P [place] for | | Intervertebral Disc | | | | Health and Healing, | | L4-5; Neck Pain; | | | | 15th Floor | | Fibromyalgia | | | | [facility] [place] | | syndrome 729.1 | | | | [address] | | | | | | [phone] | | | +--------+---------+ + + + [...] Medicare Progress Note Date: 08/26/2006 Belinda Meehan [id number]. 1960 Start of Care: 06/23/2006 Referring Provider: Miranda Lambret Primary Diagnosis: Encounter Diagnoses Code Name Primary? [...] and when she is finished at the [facility] with physical therapy advised to become [...] DE THERAPEUTIC | Procedures | Routin | Spondylosis [...]
--- OUTSIDE RECORDS SUMMARY | ~2018-11-09 | XMS | Encounter Summary ---
Demographics + + + | Address | [address] | | | [place] [address] | + + + | Home Phone [...] Team Providers + +------+ + | Care Chute Feeder Name | Role | Phone | [...] | | | [facility] | [place], [place] | | | | | Sharmila [facility] [address] | [address] | | | | | [address] [place] | [phone] | | | | | Road Mailcode: | | | | | | [id number] Physicians | | | | | | [place], | | | | | | [place] [address] | | | | | | [phone] | | | +--------+ + + + [...] | | | | | performed at [facility] | | | | | | [place] [...] + + + | [facility] | [address] | [place] [address] | | | LABORATORY | | | [...] | + + + + + | [facility] | [address] | [place] [address] | | | LABORATORY | | | [...] | [facility] | | | | | [facility] | | | | | | Laboratories. | | | | + + + + + + + + | Specimen | + + | | + + + + + + + | Performing | Address | City/State/Zipcode | Phone Number | | Organization | | | | + + + + + | [facility] | [address] | [place] [address] | | | LABORATORY | | | [...] | | | SERUM | performed by [facility] | | | | | | [facility] | | | | | | Laboratories. | | | | + + + + + + + + | Specimen | + + | | + + + + + + + | Performing | Address | City/State/Zipcode | Phone Number | | Organization | | | | + + + + + | [facility] | [address] | [place] [address] | | | LABORATORY | | | [...] DEPARTMENT OF | [address] | [place] [address] | | | PATHOLOGY | [address] | | | + + + + + | [place] DEPARTMENT OF | [address] | [place] [address] | | | PATHOLOGY | [address] [...] DEPARTMENT OF | [facility] | [place] [address] | | | PATHOLOGY | [address] | | | + + + + + | [place] DEPARTMENT OF | [facility] | [place] [address] | | | PATHOLOGY | [address] | | | + + + + + documented in this encounter Visit Diagnoses Not on filedocumented in this encounter"
--- OUTSIDE RECORDS SUMMARY | ~2018-11-09 | XMS | Encounter Summary ---
Demographics + + + | Address | [address] | | | [place] [address] | + + + | Home Phone [...] Providers + +------+ + | Care Manager French Name | Role | Phone | + [...] + + | 04/09/ | Telephone | [facility] Division of | Carlos Arreola, | Erroneous Encounter | | 2005 | | Gastroenterology/Hep | MD Demetrio Eduardo | - Disregard | | | | atology [address] | (duplicate call; see | | | | [address] | [place] [address] | other encounter ) | | | | Road Mailcode: | [phone] | | | | | PV310 Physicians | | | | | | [facility] [address] | | | | | | [place], [place] | | | | | | [address] | | | | | | [phone] | | | +--------+ + + + [...]
--- OUTSIDE RECORDS SUMMARY | ~2018-11-09 | XMS | Encounter Summary ---
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 female [facility] Comprehensive Pain Center Return Visit Chief [...] Simons. We reviewed materials risk notice and [facility] opioid agreement. A ll questions were [...] management and reduce opioid need. DELFINA MOLINA [facility] Comprehensive Pain Center Mail code CH 4P [facility] [address] [facility] [address] Ailyn Foster 12/22/19 12:51 PM PDTCMA History: PMH/PSH/SH/FH review [...]
--- OUTSIDE RECORDS SUMMARY | ~2018-11-09 | XMS | Encounter Summary ---
Demographics + + + | Address | [address] | | | [place] [address] | + + + | Home Phone [...] Providers + +------+ + | Care Visual Coordinator Name | Role | Phone | + +------+ + | Pedrito Gutierrez MD | PCP | | + +------+ + Encounter Details +--------+ + + + + | Date | Type | Department | Care Team | Description | +--------+ + + + + | 11/24/ | Hospital | Cardiac | Sj, Car Ecg Tech | | | 2007 | Encounter | Non-Invasive Testing | [address] | | | | | at [facility] | [facility] | | | | | [address] | [place] [address] | | | | | [facility] | | | | | | Mailcode: [id number] [address] | | | | | | [address] | | | | | | [place], | | | | | | [place] [address] | | | | | | [phone] | | | +--------+ + + + [...]
--- OUTSIDE RECORDS SUMMARY | ~2018-11-09 | XMS | Encounter Summary ---
Demographics + + + | Address | [address] | | | [place] [address] | + + + | Home Phone [...] + +------+ + | Care Informatics Nurse Specialist Name | Role | Phone [...] PPV | | | | | | [address] | | | | | | [facility] | | | | | | Mailcode: PV450 | | | | | | Physicians Sharmila | | | | | | [place], [place] | | | | | | [address] | | | | | | [phone] | | | +--------+ + + + [...] | | | | | | | [id number] Name | | | | | | : GEOVANNIBELINDA Ruiz Molly | | | | | | Birthday: | | | | | | 1960 Sex: | | | | | | F Alias:Patient | | | | | | Location: [id number]: | | | | | | Outpatient | | | | | | ActiveOrdering | | | | | | Physician: JOSÉ MIGUEL | | | | | | MARYSOL MORENO SCAPULA | | | | | | COMPLETE completed on | | | | | | 01/01/2009 11:55 | | | | | | AMAccession # | | | | | | [id number] | | | | | | SCAPULA [...]
--- OUTSIDE RECORDS SUMMARY | ~2018-11-09 | XMS | Encounter Summary ---
Demographics + + + | Address | [address] | | | [place] [address] | + + + | Home Phone [...] Providers + +------+ + | Care Campus Aide Name | Role | Phone | [...] [address] | | | | | | [place], [place] | | | | | | [address] | | | | | | [phone] | | | +--------+ + + + [...]
--- OUTSIDE RECORDS SUMMARY | ~2018-11-09 | XMS | Encounter Summary ---
Demographics + + + | Address | [address] | | | [place] [address] | + + + | Home Phone [...] Providers + +------+ + | Care Supervisor Lens Generating Name | Role | Phone | + [...] as of this encounter Progress Notes Interface, Flake Or Shred Roll Operator In - 02/19/2005 5:04 AM PDT [id number] GEOVANNI Barnes Clinic Date: 01/17/2005 Clinic: General [...] with Dr. Dwaine Larson. She has a bwx-tilq-lnvkd lesion at the distal aspect of her [...] closure. Devin German M.D. Dwaine Larson M.D. [facility] / [id number] / [id number] / [id number] / [id number] Electronically signed by Dwaine Larson 02-18-2005 09:15:31 AM documented i n this encounter Plan of Treatment Not on filedocumented as of this encounter Visit Diagnoses Not on filedocumented in this encounter
--- OUTSIDE RECORDS SUMMARY | ~2018-11-09 | XMS | Encounter Summary ---
Demographics + + + | Address | [address] | | | [place] [address] | + + + | Home Phone [...] + +------+ + | Care Call Center Dispatcher Name | Role | Phone | [...] | Transcriptions | + + | Interface, Funeral Home Makeup Artist In - 06/05/2005 5:20 AM PST | | [id number] | | [id number] GEOVANNI Barnes | | | | Date: 12/06/2004 | | | | Attending Surgeon: Chris Padgett M.D. | | | | Joint Finisher(s): | | | | Preoperative Diagnosis(es): | [...] | | BW / HS | | [id number] / [id number] / [id number] / | | | | | | | | | | | | Electronically signed by Chris Padgett 12-31-2004 03:02:45 PM | + + documented in this encounter Visit Diagnoses Not on filedocumented in this encounter"
--- OUTSIDE RECORDS SUMMARY | ~2018-11-09 | XMS | Encounter Summary ---
Demographics + + + | Address | [address] | | | [place] [address] | + + + | Home Phone [...] + +------+ + | Care Quality Control Chemist Name | Role | Phone | [...] | | | Metabolism | bypass | [address] | [address] | | | | | Hypovitamino | [address], | Ave | | | | | sis D [address] | [address] | [place], [place] | | | | | nutritional | [place] | [address] | | | | | deficiency | [address] | Phone: | | | | | Other | Phone: | [phone] | | | | | protein-jose manuel | [phone] | Fax: | | | | | nick | Fax: | [phone] | | | | | malnutrition | [phone] | | | | | | Weight | | | | | | | gain | | | | | | | Procedures | | | | | | | CONSULT TO | | | | | | | ENDO | | | | | | | [address] | | | | | | | [address] | | | +--------+--------+ + + + [...] | | | | | | | [place] for | | | | | | | Health and | | | | | | | Healing, | | | | | | | Building [address] | | | | | | | [place], [place] | | | | | | | [address] | | | | | | | Phone: | | | | | | | [phone] | | | | | | | Fax: | | | | | | | [phone] | +--------+--------+ + + + + Encounter Details +--------+---------+ + + + | Date | Type | Department | Care Team | Description | +--------+---------+ + + + | 09/23/ | Office | Digestive Health | Patricia Banegas, | H/O gastric bypass | | 2013 | Visit | Center at [facility] [address] | TRANSFER TABLE OPERATOR [address] | (Primary Dx); | | | | [address] | , [address] | Hypovitaminosis D; | | | | Mailcode: Center | [facility] [place] | B12 nutritional | | | | for Health and | [address] | deficiency; Other | | | | Healing, Building [address] | [phone] | protein-calorie | | | | [facility] [place] | | malnutrition; Weight | | | | [address] | | gain; Teeth decayed | | | | [phone] | | | +--------+---------+ + + + [...] make an appt with me Calories approx. 8465-3165 per day when 3 mos or more out from surgery to maintain weight l oss. Calories may need to be adjusted up for individual needs. I recommend eating 5-6 times per day. [employer] Protein 60-100+ gms per day Water: 64 oz per day, your urine should be light yellow. Please let up know if you would like a referral to see the Boiler Operators Supervisor. I would be happy to put in referrals to [facility], medical membership is $198 for 3 mos. If you are 12 mos or more out from surgery and would like referral for excess skin removal please let us know. Call us if you have any questions or concerns, or send [employer] message for non-urgent issue sYudy Banegas RN, [facility] Nurse Practitioner for Bariatric Surgery [facility] | CH6D [address] | [place] | [address] | documented in this encounter Progress Notes [...] Hives Mainly in the legs Clindamycin Codeine Ofmyzch-Icrkziimin-Dab-Caff Balance problems Fioricet W/Codeine (Wyoruxnnco-Nqvqyorlno-Qhq-Cod) Keflex (Cephalexin) Morphine IM ( only in [facility]) made gut pain worse 08/27/06: Trial [...] replacement 08/2007 right knee Lumbar fusion 05/2008 L5-Q8fxroow with bone spur removals Appendectomy Cholecystectomy section [...] to POC and will call or send [employer] message if any issues. Start time 1325, end time 1353. I spent a total of 28 minutes face to face with this patie nt. Over 50% of visit was in counseling. ~ 2 Minutes of additional time spent reviewing chart prior to visit and documenting after t his visit. Patricia Banegas RN, [facility] Nurse Practitioner for Bariatric Surgery [facility] | CH[address]D [address] | [place], [place] | [address] | documented in this e ncounter Plan [...]
--- OUTSIDE RECORDS SUMMARY | ~2018-11-09 | XMS | Encounter Summary ---
Demographics + + + | Address | [address] | | | [place] [address] | + + + | Home Phone [...] Providers + +------+ + | Care Section Gang Worker Name | Role | Phone | + +------+ + | Pedrito Gutierrez MD | PCP | | + +------+ + Encounter Details +--------+ + + + + | Date | Type | Department | Care Team | Description | +--------+ + + + + | 03/26/ | Telephone | [facility] Division of | Carlos Arreola, | | | 2005 | | Gastroenterology/Hep | MD Demetrio Eduardo | | | | | atology [address] | | | | | [address] | [place] [address] | | | | | Road Mailcode: | [phone] | | | | | PV310 Physicians | | | | | | [facility] [address] | | | | | | [place], [place] | | | | | | [address] | | | | | | [phone] | | | +--------+ + + + [...]
--- OUTSIDE RECORDS SUMMARY | ~2018-11-09 | XMS | Encounter Summary ---
Demographics + + + | Address | [address] | | | [place] [address] | + + + | Home Phone [...] Providers + +------+ + | Care Etl Bi Developer Name | Role | Phone [...] [address] | | | | | [facility] Center for | [place], [place] | | | | | Health and Healing, | [address] | | | | | 6th floor [place], | [phone] | | | | | [place] [address] | | | | | | [phone] | | | +--------+ + + + [...]
--- OUTSIDE RECORDS SUMMARY | ~2018-11-09 | XMS | Encounter Summary ---
Demographics + + + | Address | [address] | | | [place] [address] | + + + | Home Phone [...] Providers + +------+ + | Care Rubber And Pounder Name | Role | Phone | + [...] [place] | | | | | | [facility] | | | | | | Mailcode: [id number] | | | | | | Lb Doll | | | | | | Mateusz [address] [place] [address], | | | | | | [place] [address] | | | | | | [phone] | | | +--------+ + + + [...]
--- OUTSIDE RECORDS SUMMARY | ~2018-11-09 | XMS | Encounter Summary ---
Demographics + + + | Address | [address] | | | [place] [address] | + + + | Home Phone [...] Team Providers + +------+ + | Care Rewrite Editor Name | Role | Phone | [...] Jayce | Endocrinology | | | | kutr | [facility] | | | | | | [place], [place] | | | | | | [address] | | | +--------+ + + + [...] as of this encounter Progress Notes Interface, Lawn Care Specialist In - 03/12/2007 2:28 AM PDT [id number] GEOVANNI Barnes [id number] Clinic Date: 02/23/2007 Clinic: Endocrinology Subjective: Belinda [...] performed next Thursday, March 01, 2007, in [place]. The right knee will be replaced in [...] patch 25 mcg for 72 hours. 2. Dixon/acetaminophen 10 mg/325 mg, 1 every 6 hours [...] months. Beto Meeks M.D. PD / HS [id number] / [id number] / [id number] / [id number] cc: Pedrito Gutierrez M.D. [address] [place] [address] Chris Padgett M.D. Department of Surgery, [facility] Electronically signed by Beto Meeks 03-11-2007 04:41:13 PM nterface, Lawn Care Specialist In - 03/12/2007 2:28 AM PDT [id number] GEOVANNI SKELTON J 138332 Clinic Date: 02/23/2007 Clinic: Endocrinology Belinda Meehan [...] her primary care provider, Dr. Gutierrez in [place]. She had a followup eye exam today, [...] replacement next Thursday (in 6 days) in [place], [place]. The right knee replacement tentatively will [...] as needed. Beto Meeks M.D. / SHARIF [id number] / [id number] / [id number] / [id number] cc: Pedrito Gutierrez M.D. [address] [place] [address] Joanna Arshad M.D. Electronically signed by Beto Meeks 03-11-2007 04:41:08 PM documented in this encounter Plan of Treatment Not on filedocumented as of this encounter Visit Diagnoses Not on filedocumented in this encounter"
--- OUTSIDE RECORDS SUMMARY | ~2018-11-09 | XMS | Encounter Summary ---
Demographics + + + | Address | [address] | | | [place] [address] | + + + | Home Phone [...] Providers + +------+ + | Care Assurance Senior Manager Insurance Name | Role | Phone | [...] | Activity | S Lisa Wilson MD [address] | | | | | [facility] Mailcode: | [place], [place] | | | | | RPB07 [place], [place] | [address] | | | | | [address] | [phone] | | | | | [phone] | | | +--------+ + + + [...] M.D./PathologistT:04/06/ | | | | | | 06:[facility] I have reviewed | | | | [...] + | [facility] | [address] [facility] | [place] [address] | | | PATHOLOGY | [address] | | | + + + + + | [facility] DEPARTMENT OF | [address] [facility] | [place] [address] | | | PATHOLOGY | [address] | | | + + + + + documented in this encounter Visit Diagnoses Not on filedocumented in this encounter"
--- OUTSIDE RECORDS SUMMARY | ~2018-11-09 | XMS | Encounter Summary ---
Demographics + + + | Address | [address] | | | [place] [address] | + + + | Home Phone [...] Providers + +------+ + | Care Director Transportation Name | Role | Phone | [...] | Pain | Diagnoses | [place], | [place], | | | | Management | LBP (low | NIHARIKA Jean | Lukasz Rhodes, PhD | | | | | back pain) | [address] | | | | | [address]D | [address] | [address] | | | | | (degenerativ | [place], [place] | [place] | | | | | e joint | [address] | [address] | | | | | disease) of | | Phone: | | | | | knee Knee | | [phone] | | | | | pain Major | | Fax: | | | | | depressive | | [phone] | | | | | disorder, | [...] 11/23/ | Office | Pain Center at [facility] | Lukasz Charles, | Major Depressive | | 2007 | Visit | 15th Floor [address] | PhD [address] | Disorder, Recurrent | | | | [address] Mail | Ave [place], [place] | Episode, Moderate | | | | Code: [facility] Center | [address] | ([facility]); LBP (Low Back | | | | for Health and | [phone] | Pain); Bilateral | | | | Healing, 15th Floor | | Knee Pain; | | | | [place], [place] | | Adjustment Disorder | | | | [address] | | with Anxiety | | | | [phone] | | | +--------+---------+ + + + [...] frustra tion by being less active. Diagnosis: Pelican I: 1. (296.32) Major depressive disorder, recurrent, moderate. 2. (309.24) Adjustment disorder with anxiety. 3. 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 [place] II: Deferred Pelican III: abdominal pain, migraine headache, low back pain. Pel[place] IV: low finances Pelican V: GAF 55-60 Plan: return with next medical follow-up appointment. Check mood, abdominal pain, relaxat ion, activity, distraction. Continue cognitive/behavioral therapy. Total time spent with patient was approximately 45 minutes. LUKASZ CHARLES [facility] [address] [place] [address] And [facility], [address]th [place] [address] documented in this encount er Plan of [...]
--- OUTSIDE RECORDS SUMMARY | ~2018-11-09 | XMS | Encounter Summary ---
[...] + +------+ + | Care Per Diem Rn Name | Role | Phone | [...] Order | at PPV 3rd Floor | [facility] [place] | | | | | [address] | [address] | | | | | [facility] | [phone] | | | | | [place], [place] | | | | | | [address] | | | | | | [phone] | | | +--------+ + + + [...]
--- OUTSIDE RECORDS SUMMARY | ~2018-11-09 | XMS | Encounter Summary ---
Demographics + + + | Address | [address] | | | [place] [address] | + + + | Home Phone [...] | | | | Clinical Nutrition | [place], [place] | | | | | [address] | [address] | | | | | [facility] | [phone] | | | | | Mailcode: OPC5 | | | | | | Outpatient Clinic | | | | | | [facility] | | | | | | [place] [address] | | | | | | [phone] | | | +--------+ + + + [...] | + + + + + | [facility] | [address] | [place] [address] | | | PATHOLOGY | [address] | | | + + + + + | [facility] | [facility] [address] | [place] [address] | | | PATHOLOGY | [address] | | | + + + + + documented in this encounter Visit Diagnoses Not on filedocumented in this encounter"
--- OUTSIDE RECORDS SUMMARY | ~2018-11-09 | XMS | Encounter Summary ---
[...] Providers + +------+ + | Care Psychology Lecturer Name | Role | Phone | + +------+ + | Maria Esther Cintron MD | PCP | Unavailable | + +------+ + Encounter Details +--------+ + + + + | Date | Type | Department | Care Team | Description | +--------+ + + + + | 08/24/ | Abstract | Digestive Health | Patricia Banegas, | | | 2011 | | Stella at [facility] [address] | JEWELRY CASTING MODEL MAKER APPRENTICE [address] | | | | | [address] | [facility] [address] | | | | | Mailcode: Center | [place], [place] | | | | | for Health and | [address] | | | | | [facility] 2 | [phone] | | | | | [place], [place] | | | | | | [address] | | | | | | [phone] | | | +--------+ + + + [...]
--- OUTSIDE RECORDS SUMMARY | ~2018-11-09 | XMS | Encounter Summary ---
Demographics + + + | Address | [address] | | | [place] [address] | + + + | Home Phone [...] + +------+ + | Care Field Artillery Operations Specialist Name | Role | Phone | + +------+ + | Pedrito Gutierrez MD | PCP | | + +------+ + Encounter Details +--------+ + + + + | Date | Type | Department | Care Team | Description | +--------+ + + + + | 03/10/ | Orders Only | [facility] Division of | Anup Reyes MD [...] [address] | | | | | | [place], [place] | | | | | | [address] | | | | | | [phone] | | | +--------+ + + + [...] DEPARTMENT OF | [address] | [place] [address] | | | PATHOLOGY | [address] | | | + + + + + | [facility] DEPARTMENT OF | [address] | [place] [address] | | | PATHOLOGY | [address] [...] [facility] DEPARTMENT OF | [address] [facility] | [place] [address] | | | PATHOLOGY | [address] | | | + + + + + | [facility] DEPARTMENT OF | [address] [facility] | [place] [address] | | | PATHOLOGY | [address] [...] DEPARTMENT OF | [address] | [place] [address] | | | PATHOLOGY | [address] | | | + + + + + | [facility] DEPARTMENT OF | [address] | [place] [address] | | | PATHOLOGY | [address] [...] [facility] DEPARTMENT OF | [address] | [place] [address] | | | PATHOLOGY | [address] | | | + + + + + | [facility] DEPARTMENT OF | [address] | [place] [address] | | | PATHOLOGY | [address] [...] + + + | [facility] | [address] | [place] [address] | | | LABORATORY | | | [...] | | | | | performed at [facility] | | | | | [facility] [...] + + + | [facility] | [address] | [place] [address] | | | LABORATORY | | | | + + + + + documented in this encounter Visit Diagnoses + + | Diagnosis | + + | Chronic abdominal pain Abdominal pain, unspecified site | + + | Iron deficiency Other disorders of iron metabolism | + + documented in this encounter"
--- OUTSIDE RECORDS SUMMARY | ~2018-11-09 | XMS | Encounter Summary ---
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 Diagnosis: Lowville I: 1. (296.32) Major depressive disorder, recurrent, moderate. 2. (309.24) Adjustment disorder with anxiety. 3. 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 [place] II: Deferred [place] III: abdominal pain, migraine headache, low back pain. [place] IV: low finances [place] V: GAF 50 Plan: Return in 2 weeks. Check preparation for niece's visit, [employer], pacing, relaxation, ac tivity, distraction. Check managing Pain... book. Continue cognitive/behavioral therapy. Total time spent with patient was approximately 45 minutes. LUKASZ CHARLES PHD [facility] Center [address] [facility], [address] [place] [address] documented in this encount er Plan of [...]
--- OUTSIDE RECORDS SUMMARY | ~2018-11-09 | XMS | Encounter Summary ---
Demographics + + + | Address | [address] | | | [place] [address] | + + + | Home Phone [...] Team Providers + +------+ + | Care Reverse Engineer Name | Role | Phone | [...] [address] | | | | | [facility] | [address] | | | | | Mailcode: L223A | [place], [place] | | | | | Physicians [address]armila | [address] | | | | | [address] [place], | [phone] | | | | | [place] [address] | | | | | | [phone] | | | +--------+ + + + [...] + +---------+ + + | [facility] DEPARTMENT OF | | [...] + +---------+ + + | [facility] DEPARTMENT OF | | | | | RADIOLOGY | | | | + +---------+ + + documented in this encounter Visit Diagnoses Not on filedocumented in this encounter"
--- OUTSIDE RECORDS SUMMARY | ~2018-11-09 | XMS | Encounter Summary ---
Demographics + + + | Address | [address] | | | [place] [address] | + + + | Home Phone [...] Team Providers + +------+ + | Care Zoo Director Name | Role | Phone | [...] + + | 06/22/ | Office | [facility] | Delfina Molina, | Herniated Lumbar [...] Pain; Opioid | | | | Floor [place], [place] | | Dependence, | | | | [address] | | Continuous ([facility]); | | | | [phone] | | Major Depressive | | | | | | Disorder, Recurrent | | | | | | Episode, Moderate | | | | | | ([facility]); Adjustment | | | | [...] Belinda Meehan is a 46 y.o. female [facility] Return Visit Chief Complaint: [...] She deneis sweating however has [facility] aqua pool program referral of her orthopedist physician. She reports going to [email or web address] three times a week for the past [...] the past week of Fentanyl patch and [place]. Trileptal he lps with right leg pain and sleep. "been sleeping great". Expectations for this visit include : discussing the sticking problems with the fentanyl pa tc and her insurance not being willing prescribe [place]. There have been no other change in [...] an d her insurance stopped coverage of [place]. I believe doing pool therapy three times [...] might be d iverting or using her [place]? Until I know more I will not be prescribing a breakthrough sina n medication but am willing to prescribe early for her fentanyl. I have asked Belinda to picking crew supervisor and be responsible for her own medication picking crew supervisor. I discussed with Tasha Nolasco CMA the issue of Insurance PA for [place] this was in progress as of the time the patient was here. At the time I completed this note we had word that Ins urance would not approve coverage. I will discuss this with Belinda once I know her story o n where the dispensed #70 [place] is. [ Tasha reported calling [employer] who reported: Belinda's s on picking up [...] with each exchange. 3. Patient instructed to picking crew supervisor and be responsible for her own medications. 4. Follow up in two weeks to review pain management. Once she is again stable on the fen tanyl patch I will transfer her prescribing to Dr. Gutierrez. She has completed the Multidisci plinary patient Care program here at the [facility]. DELFINA MOLINA [facility] Mail code CH 4P [facility] and [address] [address] Tasha Can - 12/04/2006 7:43 [...] + | Opioid dependence, continuous ([facility]) Opioid type dependence, continuous | + + | Major depressive disorder, recurrent episode, moderate ([facility]) Major depressive | | disorder, [...]
--- OUTSIDE RECORDS SUMMARY | ~2018-11-09 | XMS | Encounter Summary ---
Demographics + + + | Address | [address] | | | [place] [address] | + + + | Home Phone [...] Providers + +------+ + | Care Certified Cytotechnologist Name | Role | Phone | + [...] of this encounter Progress Notes Interface, Government Relations Analyst In - 08/22/2005 2:06 AM PST [id number] [facility] Date: 07/31/2005 Clinic: Surgery [...] exploratory laparotomy. Plan: Emergency supply approved by [facility] in [place]. Quantity 35 was requested and will be filled. I will send a prescription for 40 additional oxycodone 5 mg. The patient will be seen in clinic in one week. Melisa Thorne / SHARIF [id number] / [id number] / [id number] / [id number] Electronically signed by Kenisha Melton 08-21-2005 07:00:10 PM documented corrie cortes this encounter Plan of Treatment Not on filedocumented as of this encounter Visit Diagnoses Not on filedocumented in this encounter"
--- OUTSIDE RECORDS SUMMARY | ~2018-11-09 | XMS | Encounter Summary ---
Demographics + + + | Address | [address] | | | [place] [address] | + + + | Home Phone [...] Providers + +------+ + | Care Manager Agriculture Name | Role | Phone | + [...] | | | [place]anie Mailcode: | [facility] | | | | | [address] for | [place], [place] | | | | | Health and Healing, | [address] | | | | | 6th floor [place], | [phone] | | | | | [place] [address] | | | | | | [phone] | | | +--------+ + + + [...]
--- OUTSIDE RECORDS SUMMARY | ~2018-11-09 | XMS | Encounter Summary ---
Demographics + + + | Address | [address] | | | [place] [address] | + + + | Home Phone [...] + +------+ + | Care Emergency Medicine Specialist Name | Role | Phone [...] NOTES | | 2006 | TRANSCRIPTI | [facility] [address] | [address] [facility] | QUESTIONNAIRE | | | ON | Bethanie Mailcode: CH12A | [facility], [place] | | | | | [facility] | [address] | | | | | and Healing, | [phone] | | | | | Floor [place], [place] | | | | | | [address] | | | | | | [phone] | | | +--------+ + + + [...]
--- OUTSIDE RECORDS SUMMARY | ~2018-11-09 | XMS | Encounter Summary ---
Demographics + + + | Address | [address] | | | [place] [address] | + + + | Home Phone [...] Providers + +------+ + | Care Automotive Design Drafter Name | Role | Phone [...] ANP | | | | | [facility] | | | | | | [address] | | | | | | Mail Code: CH15P | | | | | | [facility] | | | | | | and Healing, | | | | | | Floor [place], [place] | | | | | | [address] | | | | | | [phone] | | | +--------+ + + + [...]
--- OUTSIDE RECORDS SUMMARY | ~2018-11-09 | XMS | Encounter Summary ---
Demographics + + + | Address | [address] | | | [place] [address] | + + + | Home Phone [...] [address] | (actonel) | | | | [facility] | [place], [place] | | | | | [place] [address] | [address] | | | | | [address] | [phone] | | | | | [address] [facility] | | | | | | [facility] | | | | | | [facility] [place], | | | | | | [place] [address] | | | | | | [phone] | | | +--------+--------+ + + + [...]
--- OUTSIDE RECORDS SUMMARY | ~2018-11-09 | XMS | Encounter Summary ---
Demographics + + + | Address | [address] | | | [place] [address] | + + + | Home Phone [...] Providers + +------+ + | Care Inspector Salvage Name | Role | Phone | + +------+ + | Sulaiman Carrera MD | PCP | Unavailable | + +------+ + Encounter Details +--------+ + + + + | Date | Type | Department | Care Team | Description | +--------+ + + + + | 06/24/ | Document-Sc | UNKNOWN DEPARTMENT | Unknown . | | | 2006 | anned | [address] [facility] | | | | | | [facility] | | | | | | [place], [place] | | | | | | [address] | | | +--------+ + + + [...]
--- OUTSIDE RECORDS SUMMARY | ~2018-11-09 | XMS | Encounter Summary ---
Demographics + + + | Address | [address] | | | [place] [address] | + + + | Home Phone [...] Providers + +------+ + | Care Assistant Track Coach Name | Role | Phone [...] of this encounter Progress Notes Interface, Senior Teller In - 10/03/2006 2:33 AM PDT [id number] GEOVANNI SKELTON J [id number] Clinic Date: 09/14/2006 Clinic: Rheumatology Belinda Meehan [...] every 3 days changed; Trileptal 225 mg; Cypress 10/325; and Actonel. Objective: Weight is 214, [...] to this. Caitlin Rivera M.S., F.N.P. / [id number] / [id number] / [id number] / [id number] cc: Pedrito Gutierrez M.D. [address] [facility] [address] [place], [place] [address] [facility] Electronically signed by Caitlin Rivera 10-02-2006 09:24:29 AM documented in this encounter Plan of Treatment Not on filedocumented as of this encounter Visit Diagnoses Not on filedocumented in this encounter"
--- OUTSIDE RECORDS SUMMARY | ~2018-11-09 | XMS | Encounter Summary ---
Demographics + + + | Address | [address] | | | [place] [address] | + + + | Home Phone [...] Providers + +------+ + | Care Die Turner Name | Role | Phone | [...] | 2006 | Visit | Center at [facility] | [address] | Myelopathy, Lumbar | | | | [place] [address] [place], | Region; Neck Pain; | | | | [address] Mail Code: | [place] [address] | Herniated Lumbar | | | | CH15P [facility] for | | Intervertebral Disc | | | | Health and Healing, | | L4-5; Fibromyalgia | | | | 15th Floor | | syndrome 729.1; NO | | | | [place], [place] | | DIAGNOSIS RECEIVED | | | | [address] | | | | | | [phone] | | | +--------+---------+ + + + [...] Date: December 02, 2006 Patient: Belinda Meehan, [id number], 1960 I agree with the proposed Physical Therapy Treatment Plan. Provider: DELFINA BUNDY elfina Molina - 007 11:31 AM PDTThis encounter was opened in error. Please disregard this note. athalia Arora - 007 12:26 PM PDT PROGRESS NOTE: Physical Therapy Medicare Progress Note Date: 10/07/2006 Belinda Meehan [id number]. 1960 Start of Care: 06/23/2006 Referring Provider: [...] dial meniscal tear. Patient continues walking at [employer] on a daily basis, (when she is no t in [place] for appts), 30-40 minutes, and her HEP [...] ended: 115 Nathalia Arora, Physical Therapist License #[id number] documented in this encoun ter Plan of [...]
--- OUTSIDE RECORDS SUMMARY | ~2018-11-09 | XMS | Encounter Summary ---
Demographics + + + | Address | [address] | | | [place] [address] | + + + | Home Phone [...] Providers + +------+ + | Care Television Analyzer Name | Role | Phone | + [...] Telephone | [facility] | Nuris Cardenas FAIRGROUND OPERATOR | Lab Results (Jose L | | 2005 | | Center [address] | [address] | [place] patient) | | | | [address] Mailcode: | [place] [address] | | | | | [address] for | | | | | | Health and Healing, | | | | | | 6th floor [place], | | | | | | [place] [address] | | | | | | [phone] | | | +--------+ + + + [...]
--- OUTSIDE RECORDS SUMMARY | ~2018-11-09 | XMS | Encounter Summary ---
Demographics + + + | Address | [address] | | | [place] [address] | + + + | Home Phone [...] of this encounter Progress Notes Interface, Outside Plant Supervisor In - 01/03/2006 3:02 AM PDTCLINIC DATE: 11/01/2002 NEUROMUSCULAR CLINIC PRIMARY CARE PROVIDER: Pedrito Gutierrez M.D. OTHER PHYSICIAN: Issac Meeks M.D., [facility]. PROBLEM LIST 1. Fibromyalgia and chronic [...] fatigue. She reportedly has begun walking with [place] crutches much of the time due to [...] Irving Pete M.D. Neurology/Neuromuscular Fellow TBD / [id number] / [id number] / [id number] / [id number] C: 11/10/2002 BRAD cc: Issac Meeks M.D. [facility] Pedrito Gutierrez M.D. [address] [place], [place] [address]Noghpazomrckmg signed by Interface, Outside Plant Supervisor In at 01/03/2006 3:0 2 AM PDTdocumented in this encounter Plan of Treatment Not on filedocumented as of this encounter Visit Diagnoses Not on filedocumented in this encounter
--- OUTSIDE RECORDS SUMMARY | ~2018-11-09 | XMS | Encounter Summary ---
Demographics + + + | Address | [address] | | | [place] [address] | + + + | Home Phone [...] Providers + +------+ + | Care Regional Engagement Consultant Name | Role | Phone | [...] | | | | | NEUROLOGY | [place], [place] | for Health | | | | | | [address] | and Healing, | | | | | | Phone: | 8th floor | | | | | | [phone] | [place], [place] | | | | | | | [address] | | | | | | | Phone: | | | | | | | [phone] | | | | | | | Fax: | | | | | | | [phone] | +--------+--------+ + + + + Reason [...] | | | [facility] | [place], [place] | Weak; | | | | [facility] [address] | [address] | Migraine Headache | | | | [address] | [phone] | | | | | Road [facility] | | | | | | [facility] | | | | | | [facility] [place], | | | | | | [place] [address] | | | | | | [phone] | | | +--------+---------+ + + + [...] tolerance 790.2 [790.2] Fibromyalgia syndrome 729.1 [729.1] <PROVIDER>ADVIDE BOX Allergies Allergen Reactions Keflex (cephalexin) Sulfa (sulfonamides) Codeine Penicillins Clindamycin Cipro (ciprofloxacin) Tramadol Morphine IM ( only in [facility]) made gut pain worse 08/27/06: Trial of oral MSIR caused leg swelling Clarithromycin Hives Mainly in the legs Current outpatient prescriptions : aspirin chewable (BABY ASPIRIN) 81 mg Oral Tablet, Chewa ble, 2 daily, Disp: , Rfl: buPROPion XL (WELLBUTRIN XL) 300 mg Oral Tablet Sustained Release 24 hr, take 1 tablet (300 mg) by oral route once daily, Disp: , Rfl: wgggrxoqoi-fhjnrhyruogvd-fsugvjju (FIORICET) 50-325-40 mg Oral Tablet, take 2 [...] LE edema Results for BELINDA MEEHAN Molly (ID#[id number]) as of 03/01/2008 9:22:28 PM Ref. Range [...] K/cu mm 220 Results for BELINDA MEEHAN (ID#[id number]) as of 03/01/2008 9:22:28 PM Ref. Range [...] to discuss with her options at [facility] with, [facility]. RTC in 3 mos, earlier [...] [facility] DEPARTMENT OF | [facility] | [place] [address] | | | PATHOLOGY | [address] | | | + + + + + | [facility] DEPARTMENT OF | [address] | [place] [address] | | | PATHOLOGY | [address] [...] Performed At | + + + | [id number] Estimated GFR > 60 mL/min/1.73 sq m if non- | [facility] | | Ghanaian 533334 Estimated GFR > 60 mL/min/1.73 sq m if | DEPARTMENT | | Ghanaian GFR is estimated using the MDRD equation [...] + + | [facility] | [address] [facility] | [place] [address] | | | PATHOLOGY | [address] | | | + + + + + | [facility] | [address] [facility] | [facility] [place] [place] [address] | | | PATHOLOGY | [address] [...] RLB ([facility] [facility]) | | | [facility] [address] | | | [place] [address] | | + + + + + + + + | Performing | Address | City/State/Zipcode | Phone Number | | Organization | | | | + + + + + | [facility] | [address] | [place] [address] | | | LABORATORY | | | [...] ([address] [facility]) | | | [facility] | | | [address] | | | [place] [address] | | + + + + + + + + | Performing | Address | City/State/Zipcode | Phone Number | | Organization | | | | + + + + + | [facility] | [address] | [place] [address] | | | LABORATORY | | | [...]
--- OUTSIDE RECORDS SUMMARY | ~2018-11-09 | XMS | Encounter Summary ---
Demographics + + + | Address | [address] | | | [place] [address] | + + + | Home Phone [...] + + + | Author | [facility] | + + + | Organization | [facility] | + + + | [...] Team Providers + +------+ + | Care Newscast Director Name | Role | Phone | [...] | | 2005 | anned | [address] [facility] | | | | | | [facility] | | | | | | [place], [place] | | | | | | [address] | | | +--------+ + + + [...]
--- OUTSIDE RECORDS SUMMARY | ~2018-11-09 | XMS | Encounter Summary ---
[...] + +------+ + | Care Applications Support Specialist Name | Role | Phone [...] Rom results of | | | | [facility] | | several radiology | | | | [address] | | studies) | | | | Mail Code: CH15P | | | | | | [facility] | | | | | | and Healing, | | | | | | Floor [place], [place] | | | | | | [address] | | | | | | [phone] | | | +--------+ + + + [...] + +--------+ + + + | MA MRI LOWER EXTREM | Routin | 08/22/2005 [...] + +--------+ + + + | MA MRI LOWER EXTREM | Routin | 03/05/2005 [...] + | NAME: BELINDA MEEHAN MR #: [id number] | [facility] | | DATE OF [...] Armaan Rivera | | | H : [id number] : 1442 Approved By: Radiologist: | | + + + + + + + + | Performing | Address | City/State/Zipcode | Phone Number | | Organization | | | | + + + + + | [facility] | [address] | [place], [place] | | | [place] POINT OF CARE | [address] | [address] | | | TESTS | | | | + + + + + | [facility] | [address] | [place], [place] | | | TESTS | [address] | [address] | | + + + + + [...] JESSICA[facility] | [address] | [place], [place] | | | [place], POINT OF CARE | [address] | [address] | | | TESTS | | | | + + + + + | [facility] C[facility] | [address] | [place], [place] | | | TESTS | [facility] | [address] | | + + + + + [...] By: Armaan Mata : | | | [id number] : 1137 Approved By: | | + + + + + + + + | Performing | Address | City/State/Zipcode | Phone Number | | Organization | | | | + + + + + | [facility] | [address] | [place], [place] | | | [facility] | [address] | [address] | | | TESTS | | | | + + + + + | [facility] | [address] [facility] [address] | [place], [place] | | | TESTS | [address] | [address] | | + + + + + MRI SPINE CERVICAL WO CONTRAST (10/01/2005) + + + | Impressions | Performed At | + + + | SPINE LUMBAR 2 VIEWS AT 1421 HOURS LUMBAR SPINE, 10/01/05 | [facility] | | HISTORY: Back pain. FINDINGS: AP and lateral views of the lumbar | CARE TESTS | | spine show five eif-pwn-hgboavi lumbar vertebrae in normal alignment | | [...] | SPONDYLOSIS. Transcribed By: Armaan Mata : [id number] : | | | 1402 Approved By: | | + + + + + + + + | Performing | Address | City[facility] | Phone Number | | Organization | | | | + + + + + | [facility] | [address] | [place], [place] | | | [place], POINT OF CARE | [address] | [address] | | | TESTS | | | | + + + + + | [facility] | [address] | [place], [place] | | | TESTS | [address] | [address] | | + + + + + [...] | | Transcribed By: Adriana Pacheco : [id number] : 1215 Approved | | | By: | | + + + + + + + + | Performing | Address | City/State/Zipcode | Phone Number | | Organization | | | | + + + + + | [facility] | [address] | [place], [place] | | | [facility] | [address] | [address] | | | TESTS | | | | + + + + + | [facility] | [address] | [place], [place] | | | TESTS | [address] | [address] | | + + + + + MA MRI LOWER EXTREM JT, W/O CONTRAST (08/22/2005) + + + | Impressions | Performed At | + + + | LOWER EXTREMITY JOINT RT W/O AT 1619 HOURS RIGHT KNEE MRI, | [facility] | | 08/22/05 HISTORY: Chronic posterior [...] [facility] | [address] | [place], [place] | | | [place] POINT OF CARE | [address] | [address] | | | TESTS | | | | + + + + + | [facility] | [address] | [place], [place] | | | TESTS | [address] | [address] | | + + + + + [...] JESSICA[facility] | [address] | [place], [place] | | | [place] POINT OF CARE | [address] | [address] | | | TESTS | | | | + + + + + | [facility] | [address] | [place], [place] | | | TESTS | [address] | [address] | | + + + + + MA MRI LOWER EXTREM JT, W/O CONTRAST (03/05/2005) [...] | | | By: Armaan Mata : [id number] : 1416 Approved By: | | + + + + + + + + | Performing | Address | City/State/Zipcode | Phone Number | | Organization | | | | + + + + + | [facility] | [address] | [place], [place] | | | [facility] [place] [facility] | [address] | [address] | | | TESTS | | | [...] Armaan | | | Nicole Saenz : [id number] : 1555 Approved By: | | + + + + + + + + | Performing | Address | City/State/Zipcode | Phone Number | | Organization | | | | + + + + + | [facility] | [address] | [place], [place] | | | [facility] | [address] | [address] | | | TESTS | | | [...] Adriana | | | Aminata Pacheco : [id number] : 1505 Approved By: | | + + + + + + + + | Performing | Address | City/State/Zipcode | Phone Number | | Organization | | | | + + + + + | [facility] | [address] | [place], [place] | | | [place], POINT OF CARE | [address] | [address] | | | TESTS | | | | + + + + + documented in this encounter Visit Diagnoses Not on filedocumented in this encounter"
--- OUTSIDE RECORDS SUMMARY | ~2018-11-09 | XMS | Encounter Summary ---
Demographics + + + | Address | [address] | | | [place] [address] | + + + | Home Phone [...] | Other | | 2006 | | [facility] [address] MD,PhD [address] | | | | | Beth[place] Mailcode: CH12A | [address] | | | | | [facility] | [place], [place] | | | | | and Healing, | [address] | | | | | Floor [place], [place] | [phone] | | | | | [address] | | | | | | [phone] | | | +--------+ + + + [...]
--- OUTSIDE RECORDS SUMMARY | ~2018-11-09 | XMS | Encounter Summary ---
Demographics + + + | Address | [address] | | | [place] [address] | + + + | Home Phone [...]
--- OUTSIDE RECORDS SUMMARY | ~2018-11-09 | XMS | Encounter Summary ---
Demographics + + + | Address | [address] | | | [place] [address] | + + + | Home Phone [...] Providers + +------+ + | Care Lens Grinder Name | Role | Phone | + +------+ + | Pedrito Gutierrez MD | PCP | | + +------+ + Encounter Details +--------+------+ + + + | Date | Type | Department | Care Team | Description | +--------+------+ + + + | 02/28/ | Lab | Laboratory, | | Hypothyroidism; | | 2007 | | Specimen Collection | | Edema | | | | at [facility] 3rd Floor | | | | | | [address] | | | | | | [facility] | | | | | | [place], [place] | | | | | | [address] | | | | | | [phone] | | | +--------+------+ + + + [...] | [facility] | [address] [facility] | [place] [address] | | | PATHOLOGY | [address] | | | + + + + + | [facility] | [address] [facility] | [place] [address] | | | PATHOLOGY | [address] [...] Performed At | + + + | [id number] Estimated GFR > 60 mL/min/1.73 sq m if non- | [facility] | | Indian [id number] Estimated GFR > 60 mL/min/1.73 sq m if | DEPARTMENT OF | | Indian GFR is estimated using the MDRD equation [...] | [facility] DEPARTMENT | [address] | [place] [address] | | | PATHOLOGY | [address] | | | + + + + + | [facility] | [address] | [place] [address] | | | PATHOLOGY | [address] [...] change | | | effective 04/05/07 RLB ([address] [facility]) | | | [facility] [place] [address] | | | [place] [address] | | + + + + + + + + | Performing | Address | City/State/Zipcode | Phone Number | | Organization | | | | + + + + + | [facility] | [address] | [place] [address] | | | LABORATORY | | | [...] RLB ([address] [facility]) | | | [facility] | | | [address] | | | [place] [address] | | + + + + + + + + | Performing | Address | City/State/Zipcode | Phone Number | | Organization | | | | + + + + + | [facility] | [address] | [place] [address] | | | LABORATORY | | | | + + + + + documented in this encounter Visit Diagnoses + + | Diagnosis | + + | Hypothyroidism Unspecified hypothyroidism | + + | Edema | + + documented in this encounter"
--- OUTSIDE RECORDS SUMMARY | ~2018-11-09 | XMS | Encounter Summary ---
Demographics + + + | Address | [address] | | | [place] [address] | + + + | Home Phone [...] Team Providers + +------+ + | Care Capacity Management Specialist Name | Role | Phone [...] of this encounter Progress Notes Interface, Counter Dish Carrier In - 01/12/2005 10:09 AM PDT [id number] [facility] Date: 12/19/2004 Clinic: General [...] as vitamin B12. Melisa Thorne / SHARIF [id number] / [id number] / [id number] / [id number] cc: Pedrito Gutierrez M.D. [address] [address] FAX: [phone] Chris Padgett M.D. General Surgery, [facility] Electronically signed by Kenisha Melton 12-25-2004 04:28:39 PM documented i n this encounter Plan of Treatment Not on filedocumented as of this encounter Visit Diagnoses Not on filedocumented in this encounter"
--- OUTSIDE RECORDS SUMMARY | ~2018-11-09 | XMS | Encounter Summary ---
Demographics + + + | Address | [address] | | | [place] [address] | + + + | Home Phone [...] Providers + +------+ + | Care Bank Compliance Officer Name | Role | Phone | [...] | | 2007 | anned | [address] [facility] | | | | | | [facility] | | | | | | [place], [place] | | | | | | [address] | | | +--------+ + + + [...]
--- OUTSIDE RECORDS SUMMARY | ~2018-11-09 | XMS | Encounter Summary ---
Demographics + + + | Address | [address] | | | [place] [address] | + + + | Home Phone [...] Providers + +------+ + | Care Pharmacy Messenger Name | Role | Phone | [...] as of this encounter Progress Notes Interface, Glove Stitcher In - 01/03/2006 3:02 AM [facility] [place] [address] [address], [place] [address] or November 01, 2002 Pedrito Gutierrez M.D. [facility] [address] [place] [id number] RE: BELINDA MEEHAN MR #: [id number] Dear Dr. Gutierrez: Belinda was seen in [...] be referred for bariatric surgery here at [facility]. We have several physicians who perform the [...] Sincerely, Maurilio Estrada M.D. KRIS / SHARIF [id number] / [id number] / [id number] / Tdocumented in this encounter Plan of Treatment Not on filedocumented as of this encounter Visit Diagnoses Not on filedocumented in this encounter"
--- OUTSIDE RECORDS SUMMARY | ~2018-11-09 | XMS | Encounter Summary ---
Demographics + + + | Address | [address] | | | [place] [address] | + + + | Home Phone [...] + +------+ + | Care Food Service Coordinator Name | Role | Phone [...] as of this encounter Progress Notes Interface, Ammonia Still Operator In - 01/11/2005 7:39 PM PDT [...] 3-6 months time. She is coming from [place] so this can be scheduled on the same day of her physician visit. General surgery can schedule this. 5. Indra's business card with contact information for questions. Svetlana Maki R.D., LKyrie. SR/y39 P [phone] cc: documente d in this encounter Plan of Treatment Not on filedocumented as of this encounter Visit Diagnoses Not on filedocumented in this encounter"
--- OUTSIDE RECORDS SUMMARY | ~2018-11-09 | XMS | Encounter Summary ---
Demographics + + + | Address | [address] | | | [place] [address] | + + + | Home Phone [...] Providers + +------+ + | Care Clerical Support Name | Role | Phone | + [...] Knee pain | | 2006 | | [facility] [address] Sara Maier MD,PhD [address] | | | | | Bethanie Mailcode: CH12A | [address] | | | | | [facility] | [place], [place] | | | | | and Healing, | [address] | | | | | Floor [place], [place] | [phone] | | | | | [address] | | | | | | [phone] | | | +--------+ + + + [...]
--- OUTSIDE RECORDS SUMMARY | ~2018-11-09 | XMS | Encounter Summary ---
Demographics + + + | Address | [address] | | | [place] [address] | + + + | Home Phone [...] Providers + +------+ + | Care Manager New Product Name | Role | Phone | [...] of this encounter Progress Notes Interface, City Controller In - 01/12/2005 6:32 AM PDT Referred [...] she was going to go to the [employer] food store and try to find another [...] two months. Svetlana Maki R.D. SR/x35 P [id number] signed by Interface, City Controller In at 01/12/2005 6:32 AM [facility]ed in this encounter Plan of Treatment Not on filedocumented as of this encounter Visit Diagnoses Not on filedocumented in this encounter"
--- OUTSIDE RECORDS SUMMARY | ~2018-11-09 | XMS | Encounter Summary ---
Demographics + + + | Address | [address] | | | [place] [address] | + + + | Home Phone [...] Providers + +------+ + | Care First Sampler Name | Role | Phone | [...] | Pain | Diagnoses | Miracle, | [place], | | | | Management | LBP (low | NIHARIKA Jean | Lukasz Rhodes, PhD | | | | | back pain) | [address] | [address] | | | | | DJD | [address] | [address] | | | | | (degenerativ | [place], [place] | [place] | | | | | e joint | [address] | [address] | | | | | disease) of | | Phone: | | | | | knee Knee | | [phone] | | | | | pain Major | | Fax: | | | | | depressive | | [phone] | | | | | disorder, | [...] 03/03/ | Office | [facility] | Lukasz Charles, | Major Depressive | | 2007 | Visit | 15th Floor [address] | PhD [address] | Disorder, Recurrent | | | | [address] Mail | Ave [place], [place] | Episode, Moderate | | | | Code: [facility] | [address] | ([facility]); LBP (Low Back | | | | for Health and | [phone] | Pain); Bilateral | | | | Healing, 15th Floor | | Knee Pain; | | | | [place], [place] | | Fibromyalgia | | | | [address] | | syndrome 729.1; | | | | [phone] | | Adjustment Disorder | | | [...] a lot and is going to the cuaQea regularly. She mentioned that she is taking [...] seems to be doing good self-care. Diagnosis: Bowman I: 1. (296.32) Major depressive disorder, recurrent, moderate. 2. (309.24) Adjustment disorder with anxiety. 3. 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 Bowman II: Deferred Bowman III: abdominal pain, migraine headache, low back pain. Bowman IV: low finances Bowman V: GAF 55-60 Plan: return with next medical follow-up appointment. Check mood, pain, relaxation, activ ity, distraction, eating. Continue cognitive/behavioral therapy. Total time spent with patient was approximately 45 minutes. LUKASZ CHARLES PHD [facility] [address] [facility], 4th [place] [address] documented in this encount er Plan of Treatment + + +--------+ + + | Name | Type | Priori | Associated Diagnoses | Order Schedule | | | | ty | | | + + +--------+ + + | DE PSYCHOTHERPY, | Procedures | Routin | Major Depressive | Ordered: 03/03/2008 | | OFFICE (32-82) | | e | Disorder, Recurrent | [...]
--- OUTSIDE RECORDS SUMMARY | ~2018-11-09 | XMS | Encounter Summary ---
Demographics + + + | Address | [address] | | | [place] [address] | + + + | Home Phone [...] Team Providers + +------+ + | Care Merchandise Processor Name | Role | Phone | [...] | Registratio | S Lisa [place] | [address] | | | | n | [facility] Mailcode: | [place], [place] | | | | | [address] [place], [place] | [address] | | | | | [address] | [phone] | | | | | [phone] | | | +--------+ + + + [...] pg/mL | | | | | [facility]. | | | | + + + + + + + + | Specimen | + + | | + + + + + + + | Performing | Address | City/State/Zipcode | Phone Number | | Organization | | | | + + + + + | [facility] | [address] | [place] [address] | | | LABORATORY | | | [...] at: | | | | | | [email or web address] | | | | | | Abdiaziz Morales, [facility] [place] | | | | | | [place] [address] [phone] | | | | | | [phone] [email or web address] | | | | + + + + + + + + | Specimen | + + | | + + + + + + + | Performing | Address | City/State/Zipcode | Phone Number | | Organization | | | | + + + + + | [facility] | [address] | [place], [place] | | | [facility] | | [address] | | + + + + + [...] Iron and TIBC, Serum Test performed by [facility] | | | [facility]. | | + + + + + + + + | Performing | Address | City/State/Zipcode | Phone Number | | Organization | | | | + + + + + | [facility] | [address] | [place] [address] | | | LABORATORY | | | [...] [facility] | | | | | | [facility] | | | | | | Laboratories. | | | | + + + + + + + + | Specimen | + + | | + + + + + + + | Performing | Address | City/State/Zipcode | Phone Number | | Organization | | | | + + + + + | [facility] | [address] | [place] [address] | | | LABORATORY | | | [...] DEPARTMENT OF | [address] | [place] [address] | | | PATHOLOGY | [address] | | | + + + + + | [facility] DEPARTMENT OF | [address] | [place] [address] | | | PATHOLOGY | [address] [...] + | [facility] | [address] [facility] | [place] [address] | | | PATHOLOGY | [address] | | | + + + + + | [facility] | [address] [facility] | [place] [address] | | | PATHOLOGY | [address] [...] Performed At | + + + | 820841 Estimated GFR > 60 mL/min/1.73 sq m if non- | [facility] | | 314007 Estimated GFR > 60 mL/min/1.73 sq m [...] + + | [facility] | [facility] | [place] [address] | | | PATHOLOGY | [address] | | | + + + + + | [facility] | [address] [facility] | [place] [address] | | | PATHOLOGY | [address] | | | + + + + + documented in this encounter Visit Diagnoses Not on filedocumented in this encounter"
--- OUTSIDE RECORDS SUMMARY | ~2018-11-09 | XMS | Encounter Summary ---
Demographics + + + | Address | [address] | | | [place] [address] | + + + | Home Phone [...] Team Providers + +------+ + | Care Nerve Specialist Name | Role | Phone | [...] [address] | | | | | [facility] | [place], [place] | | | | | [address] | [address] | | | | | [address] | [phone] | | | | | Road Mailcode: | | | | | | [id number] Physicians | | | | | | [place], | | | | | | [place] [address] | | | | | | [phone] | | | +--------+--------+ + + + [...]
--- OUTSIDE RECORDS SUMMARY | ~2018-11-09 | XMS | Encounter Summary ---
Demographics + + + | Address | [address] | | | [place] [address] | + + + | Home Phone [...] Providers + +------+ + | Care Team Assembly Line Machine Operator Name | Role | Phone [...] as of this encounter Progress Notes Interface, Human Factors Ergonomist In - 01/13/2005 9:03 AM PDT [id number] [facility] Date: 01/02/2005 Clinic: Endocrinology [...] months. Beto Meeks M.D. PD / HS [id number] / [id number] / [id number] / [id number] cc: Chris Padgett M.D. documented i n this encounter Plan of Treatment Not on filedocumented as of this encounter Visit Diagnoses Not on filedocumented in this encounter"
--- OUTSIDE RECORDS SUMMARY | ~2018-11-09 | XMS | Encounter Summary ---
Demographics + + + | Address | [address] | | | [place] [address] | + + + | Home Phone [...] Team Providers + +------+ + | Care Aviation Technician Name | Role | Phone | [...] | Management | Chronic | Taqueria Strong, FOOD SERVICE HOTEL RUNNER | Rosi Armijo, ANP | | | | | neck pain | [address] | [address] | | | | | Low back | [address] | [address] | | | | | pain | [address] | [place], [place] | | | | | | [address] | [address] | | | | | | Phone: | | | | | | | [phone] | | | | | | | Fax: | | | | | | | [phone] | | +--------+--------+ + + + + Encounter Details +--------+---------+ + + + | Date | Type | Department | Care Team | Description | +--------+---------+ + + + | 08/09/ | Office | [facility] Comprehensive | Rosi Antonio, | Fibromyalgia | | 2013 | Visit | Pain Center at | ANP | syndrome 729.1 | | | | [facility] | | (Primary Dx); Major | | | | [address] | | depressive disorder, | | | | Mail Code: CH15P | | recurrent episode, | | | | [facility] | | moderate (HCC); | | | | and | | Adjustment disorder | | | | Floor [place], [place] | | with anxiety; LBP | | | | [address] | | (low back pain); | | | | [phone] | | Osteopenia; Chronic | | | [...] al. Diabetes Care. 28(1):89-94, 2004; Anca M, LEAD MOBILE DEVELOPER Drugs. [address] 1:25-30; discussion 45-6, [...] might be different fro m the original. [facility] Comprehensive Pain Center Return Visit [...] never going to her local hospital in [place] for any medical evaluations. Belinda is very [...] Overview Note: Surgery 05/15/08 Dr Ricky Garnett [facility] karlos to get operative reports [...] and a pain drawing which I reviewed. [facility] Brief Pain Inventory: (ten= worst possible pain [...] regions, she notes pain in her right mormonism, bilateral shoul crista muscles, left elbow, entire [...] knee Lumbar fusion 05/2008, '11 & '12 L5-M7tgwxvq with bone spur removals Appendectomy Cholecystectomy section [...] Hives Mainly in the legs Clindamycin Codeine Icwmeab-Eptrxsgjvl-Fnr-Caff Balance problems Fioricet W/Codeine (Qklumehnrv-Chtqxqlggq-Scd-Cod) Keflex (Cephalexin) Morphine IM ( only in [facility]) made gut pain worse 08/27/06: Trial of oral MSIR caused leg swelling Penicillins Sulfa (Sulfonamide Antibiotics) Tramadol Ms. Meehan reports no side effects. The Review of Systems provided by Ms. Meehan and documented by the [facility] was reviewed. This data was entered [...] al. Diabetes Care. 28(1):89-94, 2004; Anca Lopez, LEAD MOBILE DEVELOPER Drugs. [address] 1:25-30; discussion 45-, [...] of which more than 50% was spent nepzu-xy-ranl in r eviewing pain questionnaire, medical record, [...] | | + +---------+ + + | [facility] DEPARTMENT OF | | | [...]
--- OUTSIDE RECORDS SUMMARY | ~2018-11-09 | XMS | Encounter Summary ---
Demographics + + + | Address | [address] | | | [place] [address] | + + + | Home Phone [...] Team Providers + +------+ + | Care Buffet Waiter/Waitress Name | Role | Phone | [...] | | ogy | Epigastric | T, CHARTER COACH DRIVER [address] | [address] | | | | | pain Status | [address] | [address] | | | | | post | AVE | [address] | | | | | bariatric | [place], [place] | Mailcode: | | | | | surgery | [address] | UHN83 | | | | | Procedures | | [address] | | | | | CONSULT TO | | [address] | | | | | GI PROCEDURE | | [place], | | | | | UNIT: EGD | | [place] [address] | | | | | | | Phone: | | | | | | | [phone] | | | | | | | Fax: | | | | | | | [phone] | +--------+--------+ + + + + Reason [...] | | | | | | [address] [facility] | | | | | | | [address] | | | | | | | [address] [place], | | | | | | | [place] | | | | | | | [address] | | | | | | | Phone: | | | | | | | [phone] | | | | | | | Fax: | | | | | | | [phone] | +--------+--------+ + + + + Encounter Details +--------+---------+ + + + | Date | Type | Department | Care Team | Description | +--------+---------+ + + + | 08/28/ | Office | Digestive Health | Chris Padgett, | Epigastric Pain | | 2008 | Visit | [place] [address] | [address] | (Primary Dx); Status | | | | [address] Mailcode: | [address] | Post Bariatric | | | | [facility] for | [place], [place] | Surgery | | | | Health and Healing, | [address] | | | | | 6th floor [place], | [phone] | | | | | [place] [address] | | | | | | [phone] | | | +--------+---------+ + + + [...] + + +--------+ + + | [facility] GI | Procedures | Routin | [...] Performed At | + + + | [id number] Estimated GFR > 60 mL/min/1.73 sq m if non- | [facility] | | Sudanese 288774 Estimated GFR > 60 mL/min/1.73 sq m if | DEPARTMENT OF | | Sudanese GFR is estimated using the MDRD equation [...] [facility] | [address] [facility] | [place] [address] | | | PATHOLOGY | [address] | | | + + + + + | [facility] | [address] | [place] [address] | | | PATHOLOGY | [address] | | | + + + + + documented in this encounter Visit Diagnoses + + | Diagnosis | + + | Epigastric pain - Primary Abdominal pain, epigastric | + + | Status post bariatric surgery Bariatric surgery status | + + documented in this encounter"
--- OUTSIDE RECORDS SUMMARY | ~2018-11-09 | XMS | Encounter Summary ---
Demographics + + + | Address | [address] | | | [place] [address] | + + + | Home Phone [...] Providers + +------+ + | Care Resource Program Teacher Name | Role | Phone | [...] | Registratio | Sara [place] | [address] [facility] | | | | n | [facility] Mailcode: | [address] | | | | | [address] [place], [place] | [place], [place] | | | | | [address] | [address] | | | | | [phone] | [phone] | | | | | | | [...]
--- OUTSIDE RECORDS SUMMARY | ~2018-11-09 | XMS | Encounter Summary ---
Demographics + + + | Address | [address] | | | [place] [address] | + + + | Home Phone [...] Organization | [facility] | | | and [...] + + | 09/30/ | Refill | [facility] | Alanis, | Medication Refill | | 2018 | | MEDICINE [address] [place] [address] | MD Petrona | | | | | [facility] | [address] [place] [address] | | | | | [place] [address] | [place] [address] | | | | | [phone] | [phone] | | | | | | | [...] | | | | | [address] [address] | | | | | | [phone] | | | | | | | | +--------+---------+ + + + documented as of this encounter Visit Diagnoses Not on filedocumented in this encounter"
--- OUTSIDE RECORDS SUMMARY | ~2018-11-09 | XMS | Encounter Summary ---
Demographics + + + | Address | [address] | | | [place] [address] | + + + | Home Phone [...] Team Providers + +------+ + | Care Weather Forcaster Name | Role | Phone | + [...] | Visit | Rheumatology [address] | MATERIAL CONTROL ANALYST | syndrome 729.1 | | | | [address] | | (Primary Dx) | | | | Road Mailcode: OPC5 | | | | | | Outpatient Clinic | | | | | | [place], | | | | | | [place] [address] | | | | | | [phone] | | | +--------+---------+ + + + [...] have much room. I wonder about small associate media director ior fossa. There is a disc bulge [...] 07/05/2007 56.0 15.0-75.0 Final Test performed by [facility]. VITAMIN D 25 HYDROXY (ng/mL) 07/03/2007 47 20-57 Final Comment: TEST INFORMATION: VITAMIN D, 25-HYDROXY This assay accurately quantifies the sum of vitamin D3, 25-hydroxy and vitamin D2, 25-hydroxy. Deficiency: Less than 20 ng/mL Insufficiency: 20-29 ng/mL Optimum Level: 30-80 ng/mL Possible Toxicity: Greater than 80 ng/mL Performed by [facility], [address] [place] [id number] [email or web address], Sincere Jordan MD - Lab. Director documented in this encount er Plan of Treatment Not on filedocumented as of this encounter Visit Diagnoses + + | Diagnosis | + + | Fibromyalgia syndrome 729.1 - Primary Mylagia and myositis, unspecified | + + documented in this encounter"
--- OUTSIDE RECORDS SUMMARY | ~2018-11-09 | XMS | Encounter Summary ---
Demographics + + + | Address | [address] | | | [place] [address] | + + + | Home Phone [...] since one this | | | | [address] for | [place], [place] | morning with | | | | Health and [facility], | [address] | IBS/dumping syndrome | | | | 6th floor [place], | [phone] | symptoms) | | | | [place] [address] | | | | | | [phone] | | | +--------+ + + + [...]
--- OUTSIDE RECORDS SUMMARY | ~2018-11-09 | XMS | Encounter Summary ---
Demographics + + + | Address | [address] | | | [place] [address] | + + + | Home Phone [...] Providers + +------+ + | Care Construction Management Instructor Name | Role | Phone | [...] | Discussion | | 2007 | | [facility] & | | | | | | Healing [address] | | | | | | [address] Mail Code: | | | | | | CH8C [facility] | | | | | | Health and Healing, | | | | | | 8th floor [place], | | | | | | [place] [address] | | | | | | [phone] | | | +--------+ + + + [...]
--- OUTSIDE RECORDS SUMMARY | ~2018-11-09 | XMS | Encounter Summary ---
Demographics + + + | Address | [address] | | | [place] [address] | + + + | Home Phone [...] Providers + +------+ + | Care Foundation Drill Operator Helper Name | Role | [...] RD | | | | | | [facility] | | | | | | [place] [address] | | | | | | [phone] | | | +--------+ + + + [...]
--- OUTSIDE RECORDS SUMMARY | ~2018-11-09 | XMS | Encounter Summary ---
Demographics + + + | Address | [address] | | | [place] [address] | + + + | Home Phone [...] Providers + +------+ + | Care Textile Cutting Machine Operator Name | Role | [...] | | | [address] Mailcode: | [facility] | Diarrhea | | | | [address] for | [place], [place] | | | | | Health and [facility], | [address] | | | | | [address] [place] [address], | [phone] | | | | | [place] [address] | | | | | | [phone] | | | +--------+ + + + [...]
--- OUTSIDE RECORDS SUMMARY | ~2018-11-09 | XMS | Encounter Summary ---
Demographics + + + | Address | [address] | | | [place] [address] | + + + | Home Phone [...] Team Providers + +------+ + | Care Handicapper Harness Racing Name | Role | Phone | + [...] as of this encounter Progress Notes Interface, Assembly Cleaner In - 01/12/2005 8:09 AM PDT [id number] [facility] Date: 10/23/2003 Clinic: Ms. [...] ahead. Chris Padgett M.D. CD / HS [id number] / [id number] / [id number] / [id number] documented i n this encounter Plan of Treatment Not on filedocumented as of this encounter Visit Diagnoses Not on filedocumented in this encounter"
--- OUTSIDE RECORDS SUMMARY | ~2018-11-09 | XMS | Encounter Summary ---
Demographics + + + | Address | [address] | | | [place] [address] | + + + | Home Phone [...] Providers + +------+ + | Care Funeral Limousine Driver Name | Role | Phone | [...] | ANP | | | | | [facility] | | | | | | [address] | | | | | | Mail Code: CH15P | | | | | | [place] for [facility] | | | | | | and Healing, | | | | | | Floor [place], [place] | | | | | | [address] | | | | | | [phone] | | | +--------+ + + + [...]
--- OUTSIDE RECORDS SUMMARY | ~2018-11-09 | XMS | Encounter Summary ---
Demographics + + + | Address | [address] | | | [place] [address] | + + + | Home Phone [...] as of this encounter Progress Notes Interface, Real Estate Accountant In - 02/17/2006 3:04 AM [facility] [place] [address] [place], [place] [address] or October 02, 2001 Pedrito Gutierrez M.D. [facility] [address] [place] [address] RE: BELINDA GALARZA MR #: [id number] Dear Dr. 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 Sincerely, Issac Meeks M.D. muck miner, Division of Endocrinology, Diabetes, and Clinical Resort Housekeeper, Metabolic Disorders Clinic Ph#: [phone] [facility] / [id number] / [id number] / [id number] / C: 10/13/2001 praful [id number] signed by Interface, Real Estate Accountant In at 02/17/2006 3:04 AM [facility] umented in this encounter Plan of Treatment Not on filedocumented as of this encounter Visit Diagnoses Not on filedocumented in this encounter"
--- OUTSIDE RECORDS SUMMARY | ~2018-11-09 | XMS | Encounter Summary ---
Demographics + + + | Address | [address] | | | [place] [address] | + + + | Home Phone [...] + +------+ + | Care Emergency Room Tech Name | Role | Phone | [...] | and counseling | | | | [facility] | [place], [place] | | | | | Health and Healing, | [address] | | | | | 6th floor [place], | [phone] | | | | | [place] [address] | | | | | | [phone] | | | +--------+ + + + [...]
--- OUTSIDE RECORDS SUMMARY | ~2018-11-09 | XMS | Encounter Summary ---
Demographics + + + | Address | [address] | | | [place] [address] | + + + | Home Phone [...] Providers + +------+ + | Care Ic Designer Custom Name | Role | Phone | + [...] | | Center at [facility] [address] | SALES BROKER [address] | | | | | [address] | [facility] [place] [address] | | | | | Mailcode: Center | [place], [place] | | | | | for Health and | [address] | | | | | [facility] 2 | [phone] | | | | | [place], [place] | | | | | | [address] | | | | | | [phone] | | | +--------+ + + + [...]
--- OUTSIDE RECORDS SUMMARY | ~2018-11-09 | XMS | Encounter Summary ---
Demographics + + + | Address | [address] | | | [place] [address] [...] Providers + +------+ + | Care Meat Sales And Storage Manager Name | Role | Phone | [...] | | | | Internal | T, COOK ROOM SUPERVISOR 1971 | Bandar Stroud MD | | | | | hemorrhoid | [address] | [address] | | | | | Rectal pain | AVE | [address] | | | | | Procedures | [place], [place] | [address] [place], | | | | | CONSULT TO | [address] | [place] | | | | | COLORECTAL | | [address] | | | | | SURGERY | | Phone: | | | | | | | [phone] | | | | | | | Fax: | | | | | | | [phone] | +--------+--------+ + + + + Encounter Details +--------+ + + + + | Date | Type | Department | Care Team | Description | +--------+ + + + + | 08/10/ | [facility] | Digestive Health | Nuris Cardenas NP | Internal Hemorrhoid; | | 2008 | | Center [address] | [address] | Rectal Pain | | | | [facility] [address] | [place] [address] | | | | | Mailcode: [id number] | | | | | | Physicians Sharmila | | | | | | [place], [place] | | | | | | [address] | | | | | | [phone] | | | +--------+ + + + [...]
--- OUTSIDE RECORDS SUMMARY | ~2018-11-09 | XMS | Encounter Summary ---
Demographics + + + | Address | [address] | | | [place] [address] | + + + | Home Phone [...] Providers + +------+ + | Care Manager Sales Support Name | Role | Phone | [...] Jayce | | | | | at [facility] | [facility] | | | | | [address] | [place] [address] | | | | | [facility] | | | | | | Mailcode: [id number] Jayce | | | | | | [address] | | | | | | [place], | | | | | | [place] [address] | | | | | | [phone] | | | +--------+ + + + [...]
--- OUTSIDE RECORDS SUMMARY | ~2018-11-09 | XMS | Encounter Summary ---
Demographics + + + | Address | [address] | | | [place] [address] | + + + | Home Phone [...] Providers + +------+ + | Care Lease Buyer Name | Role | Phone | [...] [address] | | | | | | [place], [place] | | | | | | [address] | | | | | | [phone] | | | +--------+ + + + [...]
--- OUTSIDE RECORDS SUMMARY | ~2018-11-09 | XMS | Encounter Summary ---
Demographics + + + | Address | [address] | | | [place] [address] | + + + | Home Phone [...] + +------+ + | Care Environmental Health Safety Engineer Name | Role | Phone [...] W | MD [address] | | | | | Mychal Kovacs Mailcode: | [address] | | | | | [address] for | [place], [place] | | | | | Health and Healing, | [address] | | | | | 6th floor [place], | [phone] | | | | | [place] [address] | | | | | | [phone] | | | +--------+ + + + [...]
--- OUTSIDE RECORDS SUMMARY | ~2018-11-09 | XMS | Encounter Summary ---
Demographics + + + | Address | [address] | | | [place] [address] | + + + | Home Phone [...] Providers + +------+ + | Care Traffic Routing Engineer Name | Role | Phone | [...]
--- OUTSIDE RECORDS SUMMARY | ~2018-11-09 | XMS | Encounter Summary ---
Demographics + + + | Address | [address] | | | [place] [address] | + + + | Home Phone [...] + +------+ + | Care Software Applications Developer Name | Role | Phone [...] [address] | | | | | [facility] | Clementina Winkler [place], | | | | | Sharmila [address] | [place] [address] | | | | | [address] | [phone] | | | | | Road Physicians | | | | | | [facility] | | | | | | Pavil[facility]etris [place], | | | | | | [place] [address] | | | | | | [phone] | | | +--------+ + + + [...] | | + +---------+--------+ + + | [place] DXA BONE | Imaging | Routin | [...]
--- OUTSIDE RECORDS SUMMARY | ~2018-11-09 | XMS | Encounter Summary ---
Demographics + + + | Address | [address] | | | [place] [address] | + + + | Home Phone [...] | Organization | [facility] | | [...] Providers + +------+ + | Care Die Stamper Name | Role | Phone | [...] + + | 08/26/ | Telephone | [facility] | Alanis, | Headache (Adult - | | 2018 | | MEDICINE [address] | MD [place] | Recurrent Or Known | | | | [address] Wall | [address] [facility] | Dx Migraines) | | | | [place] [address] | [place] [address] | | | | | [phone] | [phone] | | | | | | | [...] | | | | | [place] [address] | | | | | | [phone] | | | | | | | [...]
--- OUTSIDE RECORDS SUMMARY | ~2018-11-09 | XMS | Encounter Summary ---
Demographics + + + | Address | [address] | | | [place] [address] | + + + | Home Phone [...] Team Providers + +------+ + | Care Slice Plug Cutter Operator Name | Role | Phone [...] MRI Results | | 2006 | | [facility] [address] | [address] | | | | | Bethanie Mailcode: CH12A | [place], [place] | | | | | [facility] | [address] | | | | | and | [phone] | | | | | [place], [place] | | | | | | [address] | | | | | | [phone] | | | +--------+ + + + [...]
--- OUTSIDE RECORDS SUMMARY | ~2018-11-09 | XMS | Encounter Summary ---
Demographics + + + | Address | [address] | | | [place] [address] | + + + | Home Phone [...] Team Providers + +------+ + | Care Duck Farmer Name | Role | Phone | [...] of this encounter Progress Notes Interface, Fish And Game Club Manager In - 06/06/2005 2:05 AM [facility] [id number] [facility] Date: 05/29/2005 Clinic: Bariatric [...] a day. She has had workups in [place] including CT and upper GI with small-bowel followthrough which have reportedly been negative. She has some recent changes in her medications including addition of a calcium channel colby and diclofenac. She says her symptoms gets worse every time she takes pain medicine. She is currently taking oxycodone. Her primary doctor in [place] is Dr. Gutierrez. Physical Examination: Vital Signs: [...] will try to arrange for her in [place], so she does not have to come out here. We will call Dr. Gutierrez to try to arrange for this and followup her within 3 months. The patient was seen with Dr. Padgett. Karen Cisneros M.D. Chris Padgett M.D. / SHARIF [id number] / [id number] / [id number] / [id number] Electronically signed by Chris Padgett 06-05-2005 05:29:09 PM documented i n this encounter Plan of Treatment Not on filedocumented as of this encounter Visit Diagnoses Not on filedocumented in this encounter"
--- OUTSIDE RECORDS SUMMARY | ~2018-11-09 | XMS | Encounter Summary ---
Demographics + + + | Address | [address] | | | [place] [address] | + + + | Home Phone [...] + +------+ + | Care Press Operator Assistant Name | Role | Phone [...] of this encounter Progress Notes Interface, Manager Finance In - 01/12/2005 10:09 AM PDT [id number] [facility] Date: 12/11/2004 Clinic: Telephone [...] sent to Ms. Meehan' home address at [facility] [address] [address]. The address was confirmed with Ms. Meehan prior to sending. Ms. Meehan has a followup appointment in Dr. Padgett's clinic on December 19, 2004. Nathalia Richard R.N., B.S.N. Liliya Kirkpatrick. / [id number] / [id number] / [id number] / Electronically signed by Nuris Chapman 12-20-2004 05:05:06 PM docushazia i n this encounter Plan of Treatment Not on filedocumented as of this encounter Visit Diagnoses Not on filedocumented in this encounter"
--- OUTSIDE RECORDS SUMMARY | ~2018-11-09 | XMS | Encounter Summary ---
Demographics + + + | Address | [address] | | | [place] [address] | + + + | Home Phone [...] Lab findings, | | 2008 | | [place] [address] | [address] | teaching, guidance, | | | | Mychal Kovacs Mailcode: | [address] | and counseling | | | | [address] | [place], [place] | (08/28/08 Lab | | | | Health and Healing, | [address] | results) | | | | [address] [place] [address], | [phone] | | | | | [place] [address] | | | | | | [phone] | | | +--------+ + + + [...]
--- OUTSIDE RECORDS SUMMARY | ~2018-11-09 | XMS | Encounter Summary ---
Demographics + + + | Address | [address] | | | [place] [address] | + + + | Home Phone [...] Providers + +------+ + | Care Associate Medical Director Name | Role | Phone [...] | Osteopenia | MD Beto | [facility] | | | | | Procedures | [address] | [address] | | | | | CONSULT TO | Ave | [address] | | | | | BONE | [place], [place] | Road | | | | | DENSITOMETRY | [address] | Mailcode: | | | | | | Phone: | [address] | | | | | | [phone] | [address] | | | | | | Fax: | [place], [place] | | | | | | [phone] | [address] | | | | | | | Phone: | | | | | | | [phone] | | | | | | | Fax: | | | | | | | [phone] | +--------+--------+ + + + + Reason [...] | | | [facility] | [place], [place] | | | | | [address] | [address] | | | | | [address] Clementina | [phone] | | | | | [facility] | | | | | | [facility] | | | | | | Sharmila [place], | | | | | | [place] [address] | | | | | | [phone] | | | +--------+ + + + [...]
--- OUTSIDE RECORDS SUMMARY | ~2018-11-09 | XMS | Encounter Summary ---
Demographics + + + | Address | [address] | | | [place] [address] | + + + | Home Phone [...] Providers + +------+ + | Care Switchboard Operator Assistant Name | Role | Phone [...] [address] | | | | | [facility] | [address] | | | | | Mailcode: [id number] | [place], [place] | | | | | Physicians Sharmila | [address] | | | | | [address] [place], | [phone] | | | | | [place] [address] | | | | | | [phone] | | | +--------+ + + + [...] DEPARTMENT OF | [address] | [place] [address] | | | PATHOLOGY | [address] | | | + + + + + | [facility] DEPARTMENT OF | [address] | [facility] [place] [address] | | | PATHOLOGY | [address] [...] | [facility] DEPARTMENT OF | [address] | [place] [address] | | | PATHOLOGY | [address] | | | + + + + + | [facility] DEPARTMENT OF | [address] | [place] [address] | | | PATHOLOGY | [address] [...] + | [facility] DEPARTMENT OF | [address] | [place] [address] | | | PATHOLOGY | [address] | | | + + + + + | [facility] DEPARTMENT OF | [address] | [place] [address] | | | PATHOLOGY | [address] [...] [facility] DEPARTMENT OF | [address] | [place] [address] | | | PATHOLOGY | [address] | | | + + + + + | [facility] DEPARTMENT OF | [address] [facility] | [place] [address] | | | PATHOLOGY | [address] [...] | [facility] DEPARTMENT OF | [address] | [place] [address] | | | PATHOLOGY | [address] | | | + + + + + | [facility] DEPARTMENT OF | [address] | [place] [address] | | | PATHOLOGY | [address] | | | + + + + + documented in this encounter Visit Diagnoses Not on filedocumented in this encounter"
--- OUTSIDE RECORDS SUMMARY | ~2018-11-09 | XMS | Encounter Summary ---
Demographics + + + | Address | [address] | | | [place] [address] | + + + | Home Phone [...] | | | | FAMILY | Rd [place], | | | | | | MEDICINE | [place] | | | | | | [address] | [address] | | | | | | [address] | Phone: | | | | | | [place], | [phone] | | | | | | [place] [address] | Fax: | | | | | | Phone: | [phone] | | | | | | [phone] | | | | | | | Fax: | | | | | | | [phone] | | +--------+--------+ + + + + Encounter Details +--------+---------+ + + + | Date | Type | Department | Care Team | Description | +--------+---------+ + + + | 07/01/ | Office | Digestive Health | Chris Padgett, | Status Post | | 2007 | Visit | Center [address] | [address] | Bariatric Surgery | | | | Mychal Gan Mailcode: | [address] | (Primary Dx) | | | | [facility] for | [place], [place] | | | | | Health and Healing, | [address] | | | | | 6th floor [place], | [phone] | | | | | [place] [address] | | | | | | [phone] | | | +--------+---------+ + + + [...] Kenisha Melton - 07/01/2007 5:00 PM PSTMrs. Christianson Chris Tobar - 07/01/2007 2:29 PM PSTMrs. Meehan ret urns for her 3.5 year bariatric followup after gastric bypass surgery. She is being followe d with [facility] providers for metabolic syndrome and hypothyroidism - Dr. Meeks, emotional issue s - Dr. Lukasz Ogden, and her PCP in [place]. She has sx of stress urinary incontinence [...] treated. She would like a urology or MEDICINE WORKER referral as appropriate. Labs ordered. See in [...] | | | | | | by [employer],[address] | | | | | | [address]ph[address]ia Mor[address], [facility] [place] | | | | | | [address] | | | | | | [phone].[employer]. | | | | | | Sincere [...] + + | [facility] | [address] | [place], [place] | | | [facility] | | [address] | | + + + + + [...] | pg/mL | | | | | [facility]. | | | | + + + + + + + + | Specimen | + + | | + + + + + + + | Performing | Address | City/State/Zipcode | Phone Number | | Organization | | | | + + + + + | [facility] | [address] | [place] [address] | | | LABORATORY | | | [...] RLB ([facility] [facility]) | | | [facility] [address] | | | [place] [address] | | + + + + + + + + | Performing | Address | City/State/Zipcode | Phone Number | | Organization | | | | + + + + + | [facility] | [address] | [place] [address] | | | LABORATORY | | | [...] ([address] [facility]) | | | [place] [address] | | | [place] [address] | | + + + + + + + + | Performing | Address | City/State/Zipcode | Phone Number | | Organization | | | | + + + + + | [facility] | [address] [place] [address] | | | LABORATORY | | | [...] Performed At | + + + | [address] Estimated GFR > 60 mL/min/1.73 sq m if non- | [facility] | | [address] Estimated GFR > 60 mL/min/1.73 sq m [...] DEPARTMENT OF | [address] | [place] [address] | | | PATHOLOGY | [address] | | | + + + + + | [facility] DEPARTMENT OF | [address] | [place] [address] | | | PATHOLOGY | [address] [...] | + + + + + | [facility] | [facility] | [place] [address] | | | PATHOLOGY | [address] | | | + + + + + | [facility] | [facility] | [place] [address] | | | PATHOLOGY | [address] | | | + + + + + documented in this encounter Visit Diagnoses + + | Diagnosis | + + | Status post bariatric surgery - Primary Bariatric surgery status | + + documented in this encounter"
--- OUTSIDE RECORDS SUMMARY | ~2018-11-09 | XMS | Encounter Summary ---
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 Provider: DELFINA MOLINA ANP Nathalia Garrett - 007 4:49 PM PDT Physical Therapy Medicare Progress Note Date: 09/09/2006 Belinda Meehan [id number]. 1960 Start of Care: 06/23/2006 Referring Provider: [...] with walking and sitting; driving back to [place] 2 weeks ago, stopped at rest place and got out of care, falling onto B knees, getting better. Objective: Apparently patient's trip home 2 weeks ago was most likely related to her positi oning, ie B knees were hyperflexed for a prolonged time. She has not fallen since then, use s her lofstrand crutches consistently. Functionally, patient is walking 25 minutes at [employer] at least daily and tolerating it we [...] able to prepare a meal using the [place]. Plan: Patient has 2 f/u visits remaining, [...] + + +--------+ + + | [place] MANUAL THER | Procedures | Routin | [...] + + +--------+ + + | [place] THERAPEUTIC | Procedures | Routin | Neck [...]
--- OUTSIDE RECORDS SUMMARY | ~2018-11-09 | XMS | Encounter Summary ---
Demographics + + + | Address | [address] | | | [place] [address] | + + + | Home Phone [...] Team Providers + +------+ + | Care Colored Leather Setter Name | Role | Phone | [...] | | 2005 | anned | [address] [facility] | | | | | | [facility] | | | | | | [place], [place] | | | | | | [address] | | | +--------+ + + + [...]
--- OUTSIDE RECORDS SUMMARY | ~2018-11-09 | XMS | Encounter Summary ---
Demographics + + + | Address | [address] | | | [place] [address] | + + + | Home Phone [...] Team Providers + +------+ + | Care Photograph Inspector Name | Role | Phone | [...] ANP | | | | | [facility] | | | | | | [address] | | | | | | Mail Code: CH15P | | | | | | [facility] | | | | | | and Healing, | | | | | | Floor [place], [place] | | | | | | [address] | | | | | | [phone] | | | +--------+ + + + [...]
--- OUTSIDE RECORDS SUMMARY | ~2018-11-09 | XMS | Encounter Summary ---
Demographics + + + | Address | [address] | | | [place] [address] | + + + | Home Phone [...] Providers + +------+ + | Care Social Human Services Assistants Name | Role | Phone | [...] + + | 09/16/ | Telephone | [facility] | Miranda Lambert, | Memory loss | | 2006 | | Pain Center at | ANP | | | | | [facility] | | | | | | [address] | | | | | | Mail Code: CH15P | | | | | | [facility] | | | | | | and Healing, | | | | | | Floor [place], [place] | | | | | | [address] | | | | | | [phone] | | | +--------+ + + + [...]
--- OUTSIDE RECORDS SUMMARY | ~2018-11-09 | XMS | Encounter Summary ---
Demographics + + + | Address | [address] | | | [place] [address] | + + + | Home Phone [...] Providers + +------+ + | Care Precision Farming Coordinator Name | Role | Phone | [...] in Left Arm; | | | | [facility] | | Fibromyalgia; | | | | [address] | | Chronic Bilateral | | | | Mail Code: CH15P | | Shoulder Pain; | | | | [facility] | | Coccydynia; LBP (Low | | | | and Healing,15th | | Back Pain); | | | | Floor [place], [place] | | Adjustment Disorder | | | | [address] | | with Anxiety; Major | | | | [phone] | | Depressive Disorder, | | | [...] Belinda Meehan is a 48 y.o. female [facility] Return Visit Chief Complaint: [...] drawing has be completed, which I reviewed. [facility] Brief Pain Inventory: (ten= worst [...] 4-6 per day, out for over one wejennifer Jimenes 2. 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 and [address] [address] Ty Omalley - 08/13 3:00 [...] per day. documented in this [facility] Plan of Treatment Not on filedocumented [...]
--- OUTSIDE RECORDS SUMMARY | ~2018-11-09 | XMS | Encounter Summary ---
Demographics + + + | Address | [address] | | | [place] [address] | + + + | Home Phone [...] Providers + +------+ + | Care Engineering And Development Director Name | Role | [...] as of this encounter Progress Notes Interface, Track Oiler In - 01/12/2005 10:09 AM PDT [id number] [facility] Date: 12/25/2004 Clinic: GENERAL [...] will send an emergency supply fax to [facility] at fax #[phone], first 30 pills, oxycodone 5 mg to [...] the current plan. Melisa Thorne / SHARIF [id number] / [id number] / [id number] / [id number] Electronically signed by Kenisha Melton 01-01-2005 04:41:20 PM documented i n this encounter Plan of Treatment Not on filedocumented as of this encounter Visit Diagnoses Not on filedocumented in this encounter"
--- OUTSIDE RECORDS SUMMARY | ~2018-11-09 | XMS | Encounter Summary ---
Demographics + + + | Address | [address] | | | [place] [address] | + + + | Home Phone [...] Providers + +------+ + | Care Functional Consultant Name | Role | Phone | + +------+ + | Pedrito Gutierrez MD | PCP | | + +------+ + Encounter Details +--------+ + + + + | Date | Type | Department | Care Team | Description | +--------+ + + + + | 03/26/ | Telephone | [facility] Division of | Carlos Arreola, | | | 2005 | | Gastroenterology/Hep | MD Demetrio Eduardo | | | | | atology [address] | [address] | | | | | [address] | [place] [address] | | | | | Road Mailcode: | [phone] | | | | | [address] Physicians | | | | | | Sharmila [facility] [address] | | | | | | [place], [place] | | | | | | [address] | | | | | | [phone] | | | +--------+ + + + [...]
--- OUTSIDE RECORDS SUMMARY | ~2018-11-09 | XMS | Encounter Summary ---
Demographics + + + | Address | [address] | | | [place] [address] | + + + | Home Phone [...] | Organization | [facility] | | | and [...] Providers + +------+ + | Care Meat Stock Clerk Name | Role | Phone | [...] + + | 10/05/ | Telephone | [facility] | Alanis, | Appointment Question | | 2018 | | MEDICINE [address] [place] [address] | MD [place] | | | | | [facility] | [address] [place] [address] | | | | | [place] [address] | [place] [address] | | | | | [phone] | [phone] | | | | | | | [...] | | | | | | [address] [place] [address] | | | | | | [place] [address] | | | | | | [phone] | | | | | | | | +--------+---------+ + + + documented as of this encounter Visit Diagnoses Not on filedocumented in this encounter"
--- OUTSIDE RECORDS SUMMARY | ~2018-11-09 | XMS | Encounter Summary ---
Demographics + + + | Address | [address] | | | [place] [address] | + + + | Home Phone [...] Team Providers + +------+ + | Care Photovoltaic Testing Technician Name | Role | Phone [...] [address] | | | | | [address] | [place], [place] | | | | | Health and Healing, | [address] | | | | | 6th floor [place], | [phone] | | | | | [place] [address] | | | | | | [phone] | | | +--------+ + + + [...]
--- OUTSIDE RECORDS SUMMARY | ~2018-11-09 | XMS | Encounter Summary ---
Demographics + + + | Address | [address] | | | [place] [address] | + + + | Home Phone [...] + | Organization | [facility] | | | and [...] Providers + +------+ + | Care Box Inspector Name | Role | Phone | [...] + + | 08/26/ | Telephone | [facility] | Alanis, | Headache (Adult - | | 2018 | | MEDICINE [address] | MD [place] | Recurrent Or Known | | | | [address] | [address] [facility] | Dx Migraines) | | | | [place] [address] | [place] [address] | | | | | [phone] | [phone] | | | | | | | [...] | | | | | [place] [address] | | | | | | [phone] | | | | | | | [...]
--- OUTSIDE RECORDS SUMMARY | ~2018-11-09 | XMS | Encounter Summary ---
Demographics + + + | Address | [address] | | | [place] [address] | + + + | Home Phone [...] Providers + +------+ + | Care Insole Buffer Name | Role | Phone | [...] | | [place] [address] | [address] | | | | | Mychal Kovacs Mailcode: | [address] | | | | | [address] | [place], [place] | | | | | Health and Healing, | [address] | | | | | 6th floor [place], | [phone] | | | | | [place] [address] | | | | | | [phone] | | | +--------+ + + + [...]
--- OUTSIDE RECORDS SUMMARY | ~2018-11-09 | XMS | Encounter Summary ---
Demographics + + + | Address | [address] | | | [place] [address] | + + + | Home Phone [...] Providers + +------+ + | Care Applications Sales Representative Name | Role | Phone [...] + + | 08/28/ | Office | [facility] Comprehensive | Delfina Lambert, | Neck Pain; Radicular | | 2008 | Visit | Pain Center at | ANP | Pain in Left Arm; | | | | [facility] | | Fibromyalgia; | | | | [address] | | Chronic Bilateral | | | | Mail Code: CH15P | | Shoulder Pain; | | | | [facility] | | Coccydynia; LBP (Low | | | | and Healing,15th | | Back Pain); | | | | Floor [place], [place] | | Adjustment Disorder | | | | [address] | | with Anxiety; Major | | | | [phone] | | Depressive Disorder, | | | [...] Belinda Meehan is a 48 y.o. female [facility] Pain [...] drawing has be completed, which I reviewed. 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 documented in this [facility] Plan of Treatment Not on filedocumented [...]
--- OUTSIDE RECORDS SUMMARY | ~2018-11-09 | XMS | Encounter Summary ---
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
--- OUTSIDE RECORDS SUMMARY | ~2018-11-09 | XMS | Encounter Summary ---
Demographics + + + | Address | [address] | | | [place] [address] | + + + | Home Phone [...] Donaldson MD | | | | | [facility] | | | | | | Mailcode: PV430 | | | | | | Physician's Sharmila | | | | | | [place], [place] | | | | | | [address] | | | | | | [phone] | | | +--------+ + + + [...]
--- OUTSIDE RECORDS SUMMARY | ~2018-11-09 | XMS | Encounter Summary ---
Demographics + + + | Address | [address] | | | [place] [address] | + + + | Home Phone [...] + + | 03/19/ | Telephone | [facility] Division of | Carlos Arreola, | Erroneous Encounter | | 2005 | | Gastroenterology/Hep | [address] | - Disregard (ERROR) | | | | atology [address] | [facility] | | | | | Jayce [facility] | [place] [address] | | | | | Road Mailcode: | [phone] | | | | | PV310 Physicians | | | | | | Pavilion [address] | | | | | | [place], [place] | | | | | | [address] | | | | | | [phone] | | | +--------+ + + + [...]
--- OUTSIDE RECORDS SUMMARY | ~2018-11-09 | XMS | Encounter Summary ---
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 [facility] Sports Medicine Clinic 09/23/2006 Belinad Meehan is a 46 y.o. 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 She is doing PT as this point. With some benefit. She is concerned because she now has some poppin mahesh dlocking symptoms and wants to know if there si something that lpn medical assistant be done w ith a scope to [...] Morphine IM ( only in [facility]) made gut pain worse 08/27/06: Trial [...] the MRI. Ramon Ibarra M.D. Sports Medicine [facility] Orthopaedics and Rehabilitation [facility] [place] [address] [phone] documented in this encoun ter Plan of [...] | + +---------+ + + | [facility] DEPARTMENT OF | | | [...] | + +---------+ + + | [facility] DEPARTMENT OF | | | [...]
--- OUTSIDE RECORDS SUMMARY | ~2018-11-09 | XMS | Encounter Summary ---
Demographics + + + | Address | [address] | | | [place] [address] | + + + | Home Phone [...] Providers + +------+ + | Care Video Control Operator Name | Role | Phone [...] | | Migraine | MD Edy | [facility] [address] | | | | | headache | [address] | [address] | | | | | Procedures | [facility] | Mail Code: | | | | | CONSULT TO | Rd | [facility] Center | | | | | NEUROLOGY | [place], [place] | for Health | | | | | | [address] | and Healing, | | | | | | Phone: | [facility] floor | | | | | | [phone] | [place], [place] | | | | | | | [address] | | | | | | | Phone: | | | | | | | [phone] | | | | | | | Fax: | | | | | | | [phone] | +--------+--------+ + + + + Encounter Details +--------+---------+ + + + | Date | Type | Department | Care Team | Description | +--------+---------+ + + + | 03/24/ | Office | Neurology at | Taniya Guerrero, | Migraine Headache | | 2007 | Visit | [facility] & | | (Primary Dx) | | | | Healing [address] | | | | | | [address] Mail Code: | | | | | | CH8C [facility] | | | | | | Health and Healing, | | | | | | 8th floor [place], | | | | | | [place] [address] | | | | | | [phone] | | | +--------+---------+ + + + [...] low blood pressure. 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 Social History Main Topics [...] touch symmetrically throughout. Cerebellar testing shows normal bxedbp-ab-ixqt and finger tapping. On gait testing, she [...] the names of 3 headache specialists in [place]- Dr. Koby García, Dr. Dakota Sweet and [...]
--- OUTSIDE RECORDS SUMMARY | ~2018-11-09 | XMS | Encounter Summary ---
Demographics + + + | Address | [address] | | | [place] [address] | + + + | Home Phone [...] Team Providers + +------+ + | Care Guideman Name | Role | Phone | + [...] JIMBO | | | | n | [place] Mailcode: | | | | | | RPB07 [place], [place] | | | | | | [address] | | | | | | [phone] | | | +--------+ + + + [...] + + | [facility] | [address] | [place] [address] | | | LABORATORY | | | | + + + + + documented in this encounter Visit Diagnoses Not on filedocumented in this encounter"
--- OUTSIDE RECORDS SUMMARY | ~2018-11-09 | XMS | Encounter Summary ---
Demographics + + + | Address | [address] | | | [place] [address] [...] | Organization | [facility] | | | and Jairana [...] Providers + +------+ + | Care Military Logistics Specialist Name | Role | Phone | [...] + + | 08/19/ | Telephone | [facility] | Alanis, | Cold-like Symptoms | | 2019 | | MEDICINE [address] [place] [address] | MD Petrona | | | | | [facility] | [address] [place] [address] | | | | | [place] [address] | [place] [address] | | | | | [phone] | [phone] | | | | | | | [...] | | | | | | [address] [place] [address] [place] | | | | | | [place] [address] | | | | | | [phone] | | | | | | | | +--------+---------+ + + + documented as of this encounter Visit Diagnoses Not on filedocumented in this encounter"
--- OUTSIDE RECORDS SUMMARY | ~2018-11-09 | XMS | Encounter Summary ---
Demographics + + + | Address | [address] | | | [place] [address] | + + + | Home Phone [...] Team Providers + +------+ + | Care Other Sports Coach Or Instructor Name | Role | Phone | [...] | | | | n | [facility] Mailcode: | | | | | | RPB07 [place], [place] | | | | | | [address] | | | | | | [phone] | | | +--------+ + + + [...]
--- OUTSIDE RECORDS SUMMARY | ~2018-11-09 | XMS | Encounter Summary ---
Demographics + + + | Address | [address] | | | [place] [address] [...] Providers + +------+ + | Care Elevator Dispatcher Name | Role | Phone | [...] Registratio | Sara Hartley | MD [address] | | | | n | [facility] Mailcode: | [address] [place], | | | | | RPB[address] [place], [place] | [place] [address] | | | | | [address] | [phone] | | | | | [phone] | | | +--------+ + + + [...] | | | | | performed at [place] | | | | | | [facility] | | | | | | Laboratory | | | | + + + + + + + + | Specimen | + + | | + + + + + + + | Performing | Address | City/State/Zipcode | Phone Number | | Organization | | | | + + + + + | [facility] | [address] | [place] [address] | | | LABORATORY | | | [...] | [facility] | [address] [facility] | [place] [address] | | | PATHOLOGY | [address] | | | + + + + + | [facility] | [address] [facility] | [place] [address] | | | PATHOLOGY | [address] [...] [facility] DEPARTMENT OF | [address] [facility] | [place] [address] | | | PATHOLOGY | [address] | | | + + + + + | [facility] DEPARTMENT OF | [address] [facility] | [place] [address] | | | PATHOLOGY | [address] [...] DEPARTMENT OF | [address] | [place] [address] | | | PATHOLOGY | [address] | | | + + + + + | [place] DEPARTMENT OF | [address] [facility] | [place] [address] | | | PATHOLOGY | [address] [...] | [facility] DEPARTMENT OF | [facility] | [place] [address] | | | PATHOLOGY | [address] | | | + + + + + | [place] DEPARTMENT OF | [address] | [place] [address] | | | PATHOLOGY | [address] [...] [facility] | [address] | [place] [address] | | | PATHOLOGY | [address] | | | + + + + + | [facility] | [address] | [place] [address] | | | PATHOLOGY | [address] | | | + + + + + documented in this encounter Visit Diagnoses Not on filedocumented in this encounter"
--- OUTSIDE RECORDS SUMMARY | ~2018-11-09 | XMS | Encounter Summary ---
Demographics + + + | Address | [address] | | | [place] [address] | + + + | Home Phone [...] Providers + +------+ + | Care Computer Systems Analyst Name | Role | Phone [...] | | | | Urinary | MD Chirs | General Chh | | | | | incontinence | [address] | [address] | | | | | Procedures | [address] | Avjennifer Mail | | | | | CONSULT TO | [address] | Code: CH10U | | | | | SURGERY - | [place], [place] | [facility] | | | | | UROLOGY | [address] | Health and | | | | | | Phone: | | | | | | | [phone] | Floor | | | | | | Fax: | [place], [place] | | | | | | [phone] | [address] | | | | | | | Phone: | | | | | | | [phone] | | | | | | | Fax: | | | | | | | [phone] | +--------+--------+ + + + + Reason [...] | Status Post | | | | [facility] for | [place], [place] | Bariatric Surgery | | | | Health and [facility], | [address] | | | | | 6th floor [place], | [phone] | | | | | [place] [address] | | | | | | [phone] | | | +--------+---------+ + + + [...] coughing. Medications: Fentanyl 25 mcg 72 hours, [place]/JOJO 10 mg/325 mg PRN Q 6 hrs, [...]
--- OUTSIDE RECORDS SUMMARY | ~2018-11-09 | XMS | Encounter Summary ---
Demographics + + + | Address | [address] | | | [place] [address] | + + + | Home Phone [...] Providers + +------+ + | Care Web Software Engineer Name | Role | Phone [...] [address] | | | | | | Mozier [address]ie | | | | | | [place], [place] | | | | | | [address] | | | +--------+ + + + [...] | Patient: BELINDA MEEHAN J Med Rec: [id number] Sex F Bdate: 1960 | | Date/Time Data | | Entered Into [facility] | | Anesth PostOp | | Surgery Date [id number] 12/09/04 10:30 | | [id number] 11/23/03 10:57 | | Anesthesiologist SYEDA ANDREWS [...]
--- OUTSIDE RECORDS SUMMARY | ~2018-11-09 | XMS | Encounter Summary ---
Demographics + + + | Address | [address] | | | [place] [address] | + + + | Home Phone [...] + +------+ + | Care Senior Web Developer Name | Role | Phone [...] | Registratio | Sara Hartley | [address] [facility] | | | | n | [facility] Mailcode: | [address] | | | | | RPB[address] [place], [place] | [place], [place] | | | | | [address] | [address] | | | | | [phone] | [phone] | | | | | | | [...]
--- OUTSIDE RECORDS SUMMARY | ~2018-11-09 | XMS | Encounter Summary ---
Demographics + + + | Address | [address] | | | [place] [address] | + + + | Home Phone [...] Team Providers + +------+ + | Care Outdoor Education Teacher Name | Role | Phone [...] | teaching, guidance, | | | | [facility] [address] | | and counseling | | | | Mailcode: PV430 | | | | | | Physician's [address] | | | | | | [place], [place] | | | | | | [address] | | | | | | [phone] | | | +--------+ + + + [...]
--- OUTSIDE RECORDS SUMMARY | ~2018-11-09 | XMS | Encounter Summary ---
Demographics + + + | Address | [address] | | | [place] [address] | + + + | Home Phone [...] Providers + +------+ + | Care Heel Edge Inker Machine Name | Role | Phone | [...] as of this encounter Discharge Summaries Interface, Backup Administrator In - 01/12/2005 6:32 AM PDTAdmission Date: [...] M.D., D.M.D. Chris Padgett M.D. CLAIRE/carolynn A [id number] cc: documente d in this encounter Plan of Treatment Not on filedocumented as of this encounter Visit Diagnoses Not on filedocumented in this encounter"
--- OUTSIDE RECORDS SUMMARY | ~2018-11-09 | XMS | Encounter Summary ---
Demographics + + + | Address | [address] | | | [place] [address] | + + + | Home Phone [...] Providers + +------+ + | Care Flight Follower Name | Role | Phone | + [...] as of this encounter Progress Notes Interface, Remotely Operated Vehicle In - 12/25/2005 2:07 AM PDT [id number] GEOVANNI Barnes [id number] Clinic Date: 12/05/2005 Clinic: General Surgery Clinic PHONE CONSULTATION Subjective: Belinda Meehan has been under our care with a history of gastric bypass and recurrent abdominal pain, nondiagnostic on multiple tests. She was requesting a prescription for oxycodone which will be sent to her home at [address] [place] [address]. Oxycodone 5 mg, 5 to 10 p.o. [...] Padgett in clinic. Melisa Thorne / SHARIF [id number] / [id number] / [id number] / [id number] Electronically signed by Kenisha Melton 12-24-2005 01:41:04 PM documented i n this encounter Plan of Treatment Not on filedocumented as of this encounter Visit Diagnoses Not on filedocumented in this encounter"
--- OUTSIDE RECORDS SUMMARY | ~2018-11-09 | XMS | Encounter Summary ---
Demographics + + + | Address | [address] | | | [place] [address] | + + + | Home Phone [...] + +------+ + | Care Law Enforcement Officer Name | Role | Phone [...] | Edema | | | | at [facility] 3rd Floor | | | | | | [address] | | | | | | [facility] | | | | | | [place], [place] | | | | | | [address] | | | | | | [phone] | | | +--------+------+ + + + [...] + | [facility] | [address] [facility] | [place] [address] | | | PATHOLOGY | [address] | | | + + + + + | [facility] OF | [address] [facility] | [place] [address] | | | PATHOLOGY | [address] [...] Performed At | + + + | [id number] Estimated GFR > 60 mL/min/1.73 sq m if non- | [facility] | | [place] [id number] Estimated GFR > 60 mL/min/1.73 sq m if | DEPARTMENT OF | | [place] GFR is estimated using the MDRD equation [...] + + | [facility] DEPARTMENT | [address] | [place] [address] | | | PATHOLOGY | [address] | | | + + + + + | [facility] | [address] | [place] [address] | | | PATHOLOGY | [address] [...] change | | | effective 04/05/07 [address] [facility]) | | | [place] [address] | | | [place] [address] | | + + + + + + + + | Performing | Address | City/State/Zipcode | Phone Number | | Organization | | | | + + + + + | [facility] | [address] | [place] [address] | | | LABORATORY | | | [...] | | | [facility] | | | [address] | | | [place] [address] | | + + + + + + + + | Performing | Address | City/State/Zipcode | Phone Number | | Organization | | | | + + + + + | [facility] | [address] | [place] [address] | | | LABORATORY | | | | + + + + + documented in this encounter Visit Diagnoses + + | Diagnosis | + + | Hypothyroidism Unspecified hypothyroidism | + + | Edema | + + documented in this encounter"
--- OUTSIDE RECORDS SUMMARY | ~2018-11-09 | XMS | Encounter Summary ---
Demographics + + + | Address | [address] | | | [place] [address] | + + + | Home Phone [...] Providers + +------+ + | Care Gear Tooth Lapping Machine Operator Name | Role | Phone | + +------+ + | Pedrito Gutierrez MD | PCP | | + +------+ + Encounter Details +--------+ + + + + | Date | Type | Department | Care Team | Description | +--------+ + + + + | 11/24/ | Respiratory | | Other, Faculty | | | 2003 | | | [phone] | | | | Therapy-[facility] | | [...]
--- OUTSIDE RECORDS SUMMARY | ~2018-11-09 | XMS | Encounter Summary ---
Demographics + + + | Address | [address] | | | [place] [address] | + + + | Home Phone [...] | Registratio | Sara Hartley | [address] [facility] | | | | n | [facility] Mailcode: | [address] | | | | | RPB[address] [place], [place] | [place], [place] | | | | | [address] | [address] | | | | | [phone] | [phone] | | | | | | | [...] CENTER DEPARTMENT OF | [address] | [place] [address] | | | PATHOLOGY | [address] | | | + + + + + | [place] DEPARTMENT OF | [address] | [place] [address] | | | PATHOLOGY | [address] [...] DEPARTMENT OF | [address] | [place] [address] | | | PATHOLOGY | [address] | | | + + + + + | [place] DEPARTMENT OF | [address] | [place] [address] | | | PATHOLOGY | [address] [...] Performed At | + + + | [id number] Estimated GFR > 60 mL/min/1.73 sq m if non- | [facility] | | [id number] Estimated GFR > 60 mL/min/1.73 sq m [...] | + + + + + | [facility] | [address] | [place] [address] | | | PATHOLOGY | [address] | | | + + + + + | [facility] OF | [address] | [place] [address] | | | PATHOLOGY | [address] | | | + + + + + documented in this encounter Visit Diagnoses Not on filedocumented in this encounter"
--- OUTSIDE RECORDS SUMMARY | ~2018-11-09 | XMS | Encounter Summary ---
Demographics + + + | Address | [address] | | | [place] [address] | + + + | Home Phone [...] Providers + +------+ + | Care Neurology Physician Assistant Name | Role | Phone | + +------+ + PCP | Unavailable | + +------+ + Encounter Details +--------+ + + + + | Date | Type | Department | Care Team | Description | +--------+ + + + + | 07/04/ | Office | Endocrinology, | Beto Meeks MD | | | 2005 | Visit-ECX | Diabetes and | [address] | | | | | Clinical Nutrition | [place], [place] | | | | | [address] | [address] | | | | | [facility] | [phone] | | | | | Mailcode: OPC5 | | | | | | Outpatient Clinic | | | | | | [facility] | | | | | | [facility] | | | | | | [phone] | | | +--------+ + + + [...]
--- OUTSIDE RECORDS SUMMARY | ~2018-11-09 | XMS | Encounter Summary ---
Demographics + + + | Address | [address] | | | [place] [address] | + + + | Home Phone [...] Team Providers + +------+ + | Care Lightning Rod Installer Name | Role | Phone | [...] as of this encounter Progress Notes Interface, Biomedical Engineering Professor In - 09/13/2005 2:06 AM PST [id number] GEOVANNI Barnes Clinic Date: 12/12/2004 Clinic: Endocrinology PHONE CONTACT NOTE The patient called me today after having surgery last week here at [facility]. Her concern was the development [...] cushion which I have ordered today through [employer], phone #[phone] and fax #[phone]. Today, the patient will monitor the decubiti closely and will be in touch with myself and her other physician depending on the progress. She also still has [address], which may be removed in one or two weeks when she returns to the Surgery Clinic at [facility]. Beto Meeks M.D. PD / HS [id number] / [id number] / [id number] / [id number] cc: Chris Padgett M.D. Electronically signed by Beto Meeks 09-12-2005 02:22:31 AM documented i n this encounter Plan of Treatment Not on filedocumented as of this encounter Visit Diagnoses Not on filedocumented in this encounter"
--- OUTSIDE RECORDS SUMMARY | ~2018-11-09 | XMS | Encounter Summary ---
Demographics + + + | Address | [address] | | | [place] [address] | + + + | Home Phone [...] Providers + +------+ + | Care Residential Program Manager Name | Role | Phone [...] | | | | Clinical Nutrition | [place], [place] | | | | | [address] | [address] | | | | | [facility] | [phone] | | | | | Mailcode: OPC5 | | | | | | Outpatient Clinic | | | | | | [facility] | | | | | | [place] [address] | | | | | | [phone] | | | +--------+ + + + [...] | | | | | performed by [facility] | | | | | [...] REG | [address] | [place], [place] | | | [facility] | | [address] | | + + + + + [...] Shaw | | | | | | [facility] | | | | | | [...] + + + | [facility] | [address] | [place] [address] | | | LABORATORY | | | [...] [facility] DE[facility]MENT [facility] | [address] [facility] | [place] [address] | | | PATHOLOGY | [address] | | | + + + + + | [facility] DEPARTMENT OF | [address] [facility] | [place] [address] | | | PATHOLOGY | [address] [...] + | [facility] | [address] | [place] [address] | | | PATHOLOGY | [address] | | | + + + + + | [facility] | [address] | [place] [address] | | | PATHOLOGY | [address] | | | + + + + + documented in this encounter Visit Diagnoses Not on filedocumented in this encounter"
--- OUTSIDE RECORDS SUMMARY | ~2018-11-09 | XMS | Encounter Summary ---
Demographics + + + | Address | [address] | | | [place] [address] | + + + | Home Phone [...] Providers + +------+ + | Care Stitch Cleaner Name | Role | Phone | [...] | Transcriptions | + + | Interface, Kaiwhakahaere In - 08/06/2005 2:06 AM PST | | [id number] | | [id number] GEOVANNI Barnes | | | | Date: 07/25/2005 | | | | Attending Surgeon: Chris Padgett M.D. | | | | Outdoor Adventure Leader(s): Bandar Langley M.D. | | | | [...] | | DT / HS | | [id number] / [id number] / [id number] / [id number] | | | | | | | | | | | | Electronically signed by Chris Padgett 08-05-2005 12:36:41 PM | + + documented in this encounter Visit Diagnoses Not on filedocumented in this encounter"
--- OUTSIDE RECORDS SUMMARY | ~2018-11-09 | XMS | Encounter Summary ---
Demographics + + + | Address | [address] | | | [place] [address] | + + + | Home Phone [...] Providers + +------+ + | Care Individual Pension Adviser Name | Role | Phone | [...]
--- OUTSIDE RECORDS SUMMARY | ~2018-11-09 | XMS | Encounter Summary ---
Demographics + + + | Address | [address] | | | [place] [address] | + + + | Home Phone [...] Providers + +------+ + | Care Rubber Mill Operator Name | Role | Phone [...] 2006 | Registratio | Sara Hartley | [address] [facility] | | | | n | [facility] Mailcode: | [address] | | | | | RPB[address] [place], [place] | [place], [place] | | | | | [address] | [address] | | | | | [phone] | [phone] | | | | | | | [...]
--- OUTSIDE RECORDS SUMMARY | ~2018-11-09 | XMS | Encounter Summary ---
Demographics + + + | Address | [address] | | | [place] [address] | + + + | Home Phone [...] Team Providers + +------+ + | Care Date Night Caregiver Name | Role | Phone | [...]
--- OUTSIDE RECORDS SUMMARY | ~2018-11-09 | XMS | Encounter Summary ---
Demographics + + + | Address | [address] | | | [place] [address] | + + + | Home Phone [...] Providers + +------+ + | Care Spa Attendant Name | Role | Phone | [...] | | | | | Encounter | [place] | | | | | for | [address] | [address] | | | | | long-term | | Phone: | | | | | (current) | | [phone] | | | | | use of other | | Fax: | | | | | medications | | [phone] | | | | | LBP (low [...] 06/23/ | Office | [facility] | Lukasz Charles, | Major depressive | | 2013 | Visit | 15th Floor [address] | PhD [address] | disorder, recurrent | | | | [address] Mail | Ave [place], [place] | episode, moderate | | | | Code: [facility] | [address] | ([facility]) (Primary Dx); | | | | for Health and | [phone] | LBP (low back pain); | | | | Healing, 15th Floor | | Adjustment disorder | | | | [place], [place] | | with anxiety | | | | [address] | | | | | | [phone] | | | +--------+---------+ + + + [...] an appropriate candidate for a stimulator. Diagnosis: Torrey I: 1. (296.32) Major depressive disorder, recurrent, moderate. 2. (309.24) Adjustment disorder with anxiety. Torrey II: Deferred Torrey III: abdominal pain, migraine headache, low back pain, fibromyalgia. Torrey IV: low finances Torrey V: GAF 55-60 Plan: return in 1 month. Check mood, pain, activity, stress management. Ask about spinal cord stimulator, any changes at home. Continue cognitive/behavioral therapy. Total time spent with patient was approximately 45 minutes. LUKASZ CHARLES PHD [facility] [address] [facility], 4th [place] [address] documented in this en counter Plan of [...]
--- OUTSIDE RECORDS SUMMARY | ~2018-11-09 | XMS | Encounter Summary ---
Demographics + + + | Address | [address] | | | [place] [address] | + + + | Home Phone [...] + | Organization | [facility] | | | and [...] Providers + +------+ + | Care Wine Sales Representative Name | Role | Phone | + +------+ + | Petroan Thapa | PCP | | | MD [...] + + | 09/15/ | Office | [facility] | Alanis, | Pain in right lower | | 2019 | Visit | MEDICINE [address] | MD [place] | leg (Primary Dx); | | | | [address] [place] | [address] [facility] | Fall in bathtub, | | | | [place] [address] | [place] [address] | initial encounter; | | | | [phone] | [phone] | Other osteoporosis | | | | [...] pulmonary disease) ([facility]) Depression Diarrhea Dumping syndrome Fall at home Fatigue fracture of vertebra Fibromyalgia Full dentures GERD (gastroesophageal reflux disease) Glaucoma Hyperparathyroidism ([facility]) Hypothyroidism IBS (irritable bowel syndrome) Idiopathic scoliosis Leg edema Low back pain Lumbar postlaminectomy syndrome Lumbar radiculopathy primarily right 01/04/2015 Meniere syndrome Migraine with aura Migraines Muscle cramping Muscle spasm Myalgia Nausea Nonalcoholic hepatosteatosis Obesity Opioid dependence ([facility]) Orthostatic hypotension OLIVER (obstructive sleep apnea) Osteoarthritis, generalized Osteopenia Osteoporosis Palpitations Peripheral neuropathy Rheumatoid arthritis ([facility]) Right arm pain 01/04/2015 RLS (restless [...] ours as needed for Pain. Incontinence Supplies [facility] As directed 100 each 11 levothyroxine [...] (See Comments) Confused and questionable for seizures Myafnydjaz-Bigh-Tvleoqsf Hives and Rash Cephalexin Hives Ciprofloxacin Hives [...] Note: Parts of this documentwere created using Nuevolution speech recognition software. As a r esult, [...] | | | | | [place] [address] | | | | | | [phone] | | | | | | | [...]
--- OUTSIDE RECORDS SUMMARY | ~2018-11-09 | XMS | Encounter Summary ---
Demographics + + + | Address | [address] | | | [place] [address] | + + + | Home Phone [...] Team Providers + +------+ + | Care Molecular Genetic Pathologist Name | Role | Phone | + [...] Jayce Hartley | | | | | [facility] | [address] [place], | | | | | [address] | [place] [address] | | | | | Mail Code: CH15P | | | | | | [facility] | | | | | | and | | | | | | Floor [place], [place] | | | | | | [address] | | | | | | [phone] | | | +--------+ + + + [...]
--- OUTSIDE RECORDS SUMMARY | ~2018-11-09 | XMS | Encounter Summary ---
Demographics + + + | Address | [address] | | | [place] [address] | + + + | Home Phone [...] Providers + +------+ + | Care Group Chief Operator Name | Role | Phone | + +------+ + | Sulaiman Carrera MD | PCP | Unavailable | + +------+ + Encounter Details +--------+ + + + + | Date | Type | Department | Care Team | Description | +--------+ + + + + | 08/09/ | Hospital | Diagnostic Imaging | | | | 2013 | Encounter | Services at [facility] | | | | | | [address] | | | | | | [facility] | | | | | | Mailcode: L340 [facility] | | | | | | [facility], [place], | | | | | | [place] [address] | | | | | | [phone] | | | +--------+ + + + [...] | | + +---------+ + + | [facility] DEPARTMENT OF | | | [...]
--- OUTSIDE RECORDS SUMMARY | ~2018-11-09 | XMS | Encounter Summary ---
[...] + +------+ + | Care Director Home Name | Role | Phone | [...] [address] | [address] [facility] | | | | | [facility] | [facility] | | | | | Mailcode: L223A | [place], [place] | | | | | Physicians Sharmila | [address] | | | | | [address] [place], | [phone] | | | | | [place] [address] | | | | | | [phone] | | | +--------+ + + + [...]
--- OUTSIDE RECORDS SUMMARY | ~2018-11-09 | XMS | Encounter Summary ---
Demographics + + + | Address | [address] | | | [place] [address] | + + + | Home Phone [...] + + | 05/28/ | Office | [facility] | Delfina Lambert, | LBP (Low [...] of Opioids; | | | | Floor [place], [place] | | Migraine Headache; | | | | [address] | | Herniated Lumbar | | | | [phone] | | Intervertebral Disc | | | | | | L4-5; Fibromyalgia | | | | | | syndrome 729.1; | | | | | | Major Depressive | | | | | | Disorder, Recurrent | | | | | | Episode, Moderate | | | | | | ([facility]); Adjustment | | | | | | [...] Belinda Meehan is a 47 y.o. female [facility] Return Visit Chief [...] diagnostics and lab results. 6. [facility] with [facility] knee Post arthroplasty physical rehabiliation. 7. Schedule follow up in one month or sooner if needed - The pateint was asked to call the clinic with any concerns or questions. [facility] Mail code CH 4P [facility] [address] asha Nolasco - 05/28/2007 10:01 AM [...] of 103.2 she was seen here at [facility] today the temp is 100.2 3. Do [...]
--- OUTSIDE RECORDS SUMMARY | ~2018-11-09 | XMS | Encounter Summary ---
Demographics + + + | Address | [address] | | | [place] [address] | + + + | Home Phone [...] Team Providers + +------+ + | Care Arrt Technologist Name | Role | Phone | [...] | Visit | Rheumatology [address] | TRAFFIC SIGN SUPERVISOR | (Primary Dx); | | | | [address] | | Fibromyalgia; | | | | Road Mailcode: OPC5 | | Fibromyalgia | | | | Outpatient Clinic | | | | | | Building [place], | | | | | | [place] [address] | | | | | | [phone] | | | +--------+---------+ + + + [...] discomfort- entire abd around to back. Seeing [facility] pain [facility]. Fentanyl patch helped pain [...]
--- OUTSIDE RECORDS SUMMARY | ~2018-11-09 | XMS | Encounter Summary ---
Demographics + + + | Address | [address] | | | [place] [address] [...] Team Providers + +------+ + | Care Kraft Digester Operator Name | Role | Phone | [...] ANP | | | | | [facility] | | | | | | [address] | | | | | | Mail Code: CH15P | | | | | | [facility] | | | | | | and Healing, | | | | | | Floor [place], [place] | | | | | | [address] | | | | | | [phone] | | | +--------+ + + + [...]
--- OUTSIDE RECORDS SUMMARY | ~2018-11-09 | XMS | Encounter Summary ---
Demographics + + + | Address | [address] | | | [place] [address] | + + + | Home Phone [...] Providers + +------+ + | Care Spa Coordinator Name | Role | Phone | [...] as of this encounter Progress Notes Interface, Philatelic Consultant In - 01/11/2005 11:07 PM PDT [...] is being seen by an orthopedist in [place]. She brings her brace today which she states is going well. The patient, however, yesterday awoke with neck stiffness and pain with spasming type pains in the area of her neck. She was seen in the emergency room last night in [place] for injection after a migraine. She states [...] Jesus M.D. Domingo Lozoya M.D. Gokul P [phone] cc: Pedrito Gutierrez MD [address] [place], [place] [email or web address] signed by Interface, Philatelic Consultant In at 5 11:07 PM PDTdocumented in this encounter Plan of Treatment Not on filedocumented as of this encounter Visit Diagnoses Not on filedocumented in this encounter"
--- OUTSIDE RECORDS SUMMARY | ~2018-11-09 | XMS | Encounter Summary ---
Demographics + + + | Address | [address] | | | [place] [address] | + + + | Home Phone [...] Providers + +------+ + | Care Carpet Or Rug Layer Helper Name | Role | Phone [...] [address] | | | | | | [place], [place] | | | | | | [address] | | | | | | [phone] | | | +--------+ + + + [...]
--- OUTSIDE RECORDS SUMMARY | ~2018-11-09 | XMS | Encounter Summary ---
Demographics + + + | Address | [address] | | | [place] [address] | + + + | Home Phone [...] Providers + +------+ + | Care Dietary Tech Name | Role | Phone | [...] [address] | | | | | | [place], [place] | | | | | | [address] | | | | | | [phone] | | | +--------+ + + + [...]
--- OUTSIDE RECORDS SUMMARY | ~2018-11-09 | XMS | Encounter Summary ---
[...] Providers + +------+ + | Care Pattern Stamper Name | Role | Phone | [...] | | | Metabolism | bypass | [address] | [address] | | | | | Hypovitamino | [address], | Ave | | | | | sis D B12 | [address] | [place], [place] | | | | | nutritional | [place] | [address] | | | | | deficiency | [address] | Phone: | | | | | Other | Phone: | [phone] | | | | | protein-jose manuel | [phone] | Fax: | | | | | nick | Fax: | [phone] | | | | | malnutrition | [phone] | | | | | | Weight | | | | | | | gain | | | | | | | Procedures | | | | | | | CONSULT TO | | | | | | | ENDO | | | | | | | [address] | | | +--------+--------+ + + + [...] | | | [facility] | [place], [place] | (Primary Dx); | | | | Pavilion [address] | [address] | Metabolic syndrome X | | | | [address] | [phone] | 250.80; Essential | | | | Road Physicians | | hypertension 401.9; | | | | [facility] | | Unstable balance | | | | Pavilion [place], | | | | | | [place] [address] | | | | | | [phone] | | | +--------+---------+ + + + [...] Hives Mainly in the legs Clindamycin Codeine Oonnelm-Npzaysgjdw-Aut-Caff Balance problems Fioricet W/Codeine (Wnucnjrbiu-Hhqfjspwcb-Rlx-Cod) Keflex (Cephalexin) Morphine IM ( only in [facility]) made gut pain [...] U/L 41 ANION GAP 8 VITAMIN B12, [id number] pg/ml >2000 (H) HEMOGLOBIN A1C <=5.6 % [...] SERUM 15.0-85.0 pg/ml 222.9 (H) VITAMIN B12, [id number] pg/ml > 2000 HEMOGLOBIN A1C <=5.6 % [...] home vi a a long drive to [place]. She needs further evaluation of her right hip and EMISSION TECHNICIAN. This c an be most easily accomplished [...] | + +--------+ + + + | MD COLLECTION | Routin | 08/09/2013 | IGT [...] JESSICAAM | [address] | [place], [place] | | | [facility] CARE | [address] | [address] | | | TESTS | | | [...] VERONICA | [address] | [place], [place] | | | IZABELA RAGAN OF [facility] | [address] | [address] | | | TESTS | | | [...]
--- OUTSIDE RECORDS SUMMARY | ~2018-11-09 | XMS | Encounter Summary ---
Demographics + + + | Address | [address] | | | [place] [address] | + + + | Home Phone [...] Providers + +------+ + | Care Furnace Firer Name | Role | Phone | + [...] | Registratio | Sara Hartley | [address] [facility] | | | | n | [facility] Mailcode: | [facility] [place] | | | | | [address] [place], [place] | [address] | | | | | [address] | [phone] | | | | | [phone] | | | +--------+ + + + [...]
--- OUTSIDE RECORDS SUMMARY | ~2018-11-09 | XMS | Encounter Summary ---
Demographics + + + | Address | [address] | | | [place] [address] | + + + | Home Phone [...] Providers + +------+ + | Care Gift Manager Name | Role | Phone | [...] | Center [address] | [address] [facility] | Bariatric Surgery | | | | Mychal Kovacs Mailcode: | [address] | (Primary Dx) | | | | [facility] for | [place], [place] | | | | | Health and Healing, | [address] | | | | | 6th floor [place], | [phone] | | | | | [place] [address] | | | | | | [phone] | | | +--------+ + + + [...] | | | | | | by [employer],[address] | | | | | | Abdiaziz Morales, [facility], [place] | | | | | | [address] | | | | | | [phone].[email or web address]. | | | | | | Sincere [...] [facility] | [address] | [place], [place] | | | UN[facility] | | [address] | | + + + + + [...] + + + + + | [facility] | [address] | [place] [address] | | | LABORATORY | | | [...] RLB ([address] [facility]) | | | [facility] [place] [address] | | | [place] [address] | | + + + + + + + + | Performing | Address | City/State/Zipcode | Phone Number | | Organization | | | | + + + + + | [facility] | [address] | [place] [address] | | | LABORATORY | | | [...] RLB ([address] [facility]) | | | [facility] [place] [address] | | | [place] [address] | | + + + + + + + + | Performing | Address | City/State/Zipcode | Phone Number | | Organization | | | | + + + + + | [facility] | [address] [facility] | [place] [address] | | | LABORATORY | | | [...] Performed At | + + + | [address] Estimated GFR > 60 mL/min/1.73 sq m if non- | [facility] | | [address] Estimated GFR > 60 mL/min/1.73 sq m [...] | [facility] DEPARTMENT | [address] [facility] | [place] [address] | | | PATHOLOGY | [address] | | | + + + + + | [facility] DEPARTMENT OF | [address] | [place] [address] | | | PATHOLOGY | [address] [...] DEPARTMENT OF | [address] | [place] [address] | | | PATHOLOGY | [address] | | | + + + + + | [facility] | [address] | [place] [address] | | | PATHOLOGY | [address] | | | + + + + + documented in this encounter Visit Diagnoses + + | Diagnosis | + + | Status post bariatric surgery - Primary Bariatric surgery status | + + documented in this encounter"
--- OUTSIDE RECORDS SUMMARY | ~2018-11-09 | XMS | Encounter Summary ---
Demographics + + + | Address | [address] | | | [place] [address] | + + + | Home Phone [...] + +------+ + | Care Cash Applications Specialist Name | Role | Phone | [...] Densitometry | | MD Beto | D[facility] | | | | | Osteoporosis | [address] | [address] | | | | | Procedures | Ave | [address] | | | | | CONSULT TO | [place], [place] | Road | | | | | BONE | [address] | Mailcode: | | | | | DENSITOMETRY | Phone: | [address] | | | | | | [phone] | [facility] | | | | | | Fax: | [place], [place] | | | | | | [phone] | [address] | | | | | | | Phone: | | | | | | | [phone] | | | | | | | Fax: | | | | | | | [phone] | +--------+--------+ + + + + Encounter Details +--------+---------+ + + + | Date | Type | Department | Care Team | Description | +--------+---------+ + + + | 08/23/ | Office | Endocrinology, | Sjh, Bmd Dexa | Other Osteoporosis | | 2007 | Visit | Diabetes and | [address] | (Primary Dx); | | | | Clinical Nutrition | [address] [place], | Symptomatic | | | | [address] | [place] [address] | Menopausal or Female | | | | [address] | | Climacteric States; | | | | Mailcode: [address] [place] [address] | | Disorder of Bone | | | | [address] | | and Cartilage, | | | | [place], [place] | | Unspecified | | | | [address] | | | | | | [phone] | | | +--------+---------+ + + + [...] | | + +---------+--------+ + + | [facility] DXA BONE | Imaging | Routin | [...]
--- OUTSIDE RECORDS SUMMARY | ~2018-11-09 | XMS | Encounter Summary ---
Demographics + + + | Address | [address] | | | [place] [address] | + + + | Home Phone [...] Providers + +------+ + | Care Knitting Machine Tender Name | Role | Phone [...] as of this encounter Progress Notes Interface, Compliance Nurse In - 07/09/2005 2:07 AM PST [id number] [facility] Date: 07/03/2005 Clinic: Ms. [...] this operation. Chris Padgett M.D. ROSA / [id number] / [id number] / [id number] / [id number] Electronically signed by Chris Padgett 07-08-2005 01:45:20 PM documented i n this encounter Plan of Treatment Not on filedocumented as of this encounter Visit Diagnoses Not on filedocumented in this encounter"
--- OUTSIDE RECORDS SUMMARY | ~2018-11-09 | XMS | Encounter Summary ---
Demographics + + + | Address | [address] | | | [place] [address] | + + + | Home Phone [...] Team Providers + +------+ + | Care Chemist Physical Name | Role | Phone | + [...] | | | | | | | [facility] | | | | | | [facility] AND | | | | | | | HEALING | | | | | | | [place], [place] | | | | | | | [address] Phone: | | | | | | | [phone] | | | | | | | Fax: | | | | | | | [phone] | +--------+--------+ + + + + Encounter Details +--------+ + + + + | Date | Type | Department | Care Team | Description | +--------+ + + + + | 09/14/ | Hospital | [facility] GI PROCEDURE | [place], | | | 2008 | Encounter | [address] | MD Pedrito | | | | | [facility] | | | | | | [facility] | | | | | | HEALING [place], | | | | | | [place] [address] | | | | | | [phone] | | | +--------+ + + + [...] encounter Discharge Instructions Marleen Barbosa - 09/14/2008 [facility] [place] Endoscopy [address] [place] [address] Toll Free ext: [phone] Home Care Instructions after EGD (Upper Endoscopy) [...] hours, or on weekends and holidays Hospital Hostess Host and have the GI doctor refrigeration engineering teacher paged. The provider who performed your procedure [...] Meehan is a 48 y.o. female MR# [id number] presents today for an EG D to [...] 01/22/2006 Tramadol 01/22/2006 Morphine Clarithromycin Hives 06/28/2007 Nphuglj-rderpvgxug-jhp-caff 08/28/2008 See procedure note 09/14/2008 documented in [...]
--- OUTSIDE RECORDS SUMMARY | ~2018-11-09 | XMS | Encounter Summary ---
Demographics + + + | Address | [address] | | | [place] [address] | + + + | Home Phone [...] Providers + +------+ + | Care Wool Scourer Name | Role | Phone | [...] | Transcriptions | + + | Interface, Admissions Gate Attendant In - 06/05/2005 5:20 AM PST Date: | | 11/22/2003Attending Surgeon: Chris Padgett M.D.Horse Race Starter(s): | | Ramon Valentine M.D.Preoperative Diagnosis:Morbid obesity.Postoperative [...] our proximal transected portion down and did mmlss-yd-pizt stapled jejunojejunostomy | | using a single [...] to this antecolic and antegastric andperformed a svto-ul-ctkq gastrojejunostomy | | after placing a posteriorinterrupted [...] Valentine | | Syed Padgett M.D.MOOKIE / [id number] / [id number] / [id number] / [id number]: 11/22/2003T: | | 11/22/2003 | |cm to [...] transected portion down and did a | |evca-ol-xfhf stapled jejunojejunostomy using a single firing blue [...] antecolic and antegastric and | |performed a sepi-wp-kxrc gastrojejunostomy after placing a posterior | |interrupted [...] | | | |MOOKIE / SHARIF | |[id number] / [id number] / [id number] / [id number] | | | | | + + documented in this encounter Visit Diagnoses Not on filedocumented in this encounter"
--- OUTSIDE RECORDS SUMMARY | ~2018-11-09 | XMS | Encounter Summary ---
Demographics + + + | Address | [address] | | | [place] [address] | + + + | Home Phone [...] [address] | | | | | [facility] | [place], [place] | | | | | [address] | [address] | | | | | [address] | [phone] | | | | | Road Physicians | | | | | | [facility] | | | | | | [facility] [place], | | | | | | [place] [address] | | | | | | [phone] | | | +--------+ + + + [...]
--- OUTSIDE RECORDS SUMMARY | ~2018-11-09 | XMS | Encounter Summary ---
Demographics + + + | Address | [address] | | | [place] [address] | + + + | Home Phone [...] | | | | | | | [facility] | | | | | | | Health and | | | | | | | Healing, | | | | | | | [address] | | | | | | | [place], [place] | | | | | | | [address] | | | | | | | Phone: | | | | | | | [phone] | | | | | | | Fax: | | | | | | | [phone] | +--------+--------+ + + + + Encounter [...] (Primary Dx) | | | | [facility] | [place], [place] | | | | | Health and [facility], | [address] | | | | | 6th floor [place], | [phone] | | | | | [place] [address] | | | | | | [phone] | | | +--------+---------+ + + + [...] and I asked her to see a ammunition and explosives handler where she lives. Will obtain CBC and [...]
--- OUTSIDE RECORDS SUMMARY | ~2018-11-09 | XMS | Encounter Summary ---
Demographics + + + | Address | [address] | | | [place] [address] | + + + | Home Phone [...] Organization | [facility] | | | and [...] Providers + +------+ + | Care Surveillance Supervisor Name | Role | Phone | + +------+ + | Petrona Thapa | PCP | | | MD | | | + +------+ + Encounter Details +--------+ + + + + | Date | Type | Department | Care Team | Description | +--------+ + + + + | 09/15/ | Hospital | [facility] | Emmy-Kamlesh, | Pain in right lower | | 2019 | Encounter | [facility] | MD Petrona | leg | | | | [address] [place] | [address] [place] | | | | | [place] | [place] [address] | | | | | [address] | [phone] | | | | | [phone] | | | +--------+ + + + [...] | | | | | [place] [address] | | | | | | [phone] | | | | | | | [...]
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
--- OUTSIDE RECORDS SUMMARY | ~2018-11-09 | XMS | Encounter Summary ---
Demographics + + + | Address | [address] | | | [place] [address] | + + + | Home Phone [...] Team Providers + +------+ + | Care Abrasive Grader Name | Role | Phone | [...] as of this encounter Progress Notes Interface, Substitute School Nurse In - 06/23/2006 2:36 AM PST [id number] GEOVANNI SKELTON Molly [id number] Clinic Date: 05/05/2006 Clinic: Endocrinology Subjective: Belinda [...] replacement. Beto Meeks M.D. PD / HS [id number] / [id number] / [id number] / cc: Pedrito Gutierrez M.D. [address] [facility] [place] [address] Joanna Arshad M.D. [facility] Electronically signed by Beto Meeks 06-20-2006 11:48:11 PM documented i n this encounter Plan of Treatment Not on filedocumented as of this encounter Visit Diagnoses Not on filedocumented in this encounter"
--- OUTSIDE RECORDS SUMMARY | ~2018-11-09 | XMS | Encounter Summary ---
Demographics + + + | Address | [address] | | | [place] [address] | + + + | Home Phone [...] Providers + +------+ + | Care Seed Sales Manager Name | Role | Phone [...] | Center [address] | [address] [facility] | | | | | Mychal Kovacs Mailcode: | [address] | | | | | [facility] | [place], [place] | | | | | Health and Healing, | [address] | | | | | 6th floor [place], | [phone] | | | | | [place] [address] | | | | | | [phone] | | | +--------+ + + + [...]
--- OUTSIDE RECORDS SUMMARY | ~2018-11-09 | XMS | Encounter Summary ---
Demographics + + + | Address | [address] | | | [place] [address] | + + + | Home Phone [...] Providers + +------+ + | Care Medical Administrative Technician Name | Role | Phone | [...] [address] | | | | | [facility] | [place], [place] | | | | | [address] | [address] | | | | | [facility] | [phone] | | | | | [facility] | | | | | | [facility] | | | | | | [facility] [place], | | | | | | [place] [address] | | | | | | [phone] | | | +--------+--------+ + + + [...]
--- OUTSIDE RECORDS SUMMARY | ~2018-11-09 | XMS | Encounter Summary ---
Demographics + + + | Address | [address] | | | [place] [address] | + + + | Home Phone [...] Team Providers + +------+ + | Care Slip Cover Operator Name | Role | Phone | [...] JIMBO | | | | n | [facility] Mailcode: | | | | | | [address] [place], [place] | | | | | | [address] | | | | | | [phone] | | | +--------+ + + + [...]
--- OUTSIDE RECORDS SUMMARY | ~2018-11-09 | XMS | Encounter Summary ---
Demographics + + + | Address | [address] | | | [place] [address] | + + + | Home Phone [...] Team Providers + +------+ + | Care Errand Runner Name | Role | Phone | [...]
--- OUTSIDE RECORDS SUMMARY | ~2018-11-09 | XMS | Encounter Summary ---
Demographics + + + | Address | [address] | | | [place] [address] | + + + | Home Phone [...] Team Providers + +------+ + | Care Micro Paleontologist Name | Role | Phone | + [...] | Registratio | Sara Hartley | [address] [facility] | | | | n | [facility] Mailcode: | [address] | | | | | [address] [place], [place] | [place], [place] | | | | | [address] | [address] | | | | | [phone] | [phone] | | | | | | | [...]
--- OUTSIDE RECORDS SUMMARY | ~2018-11-09 | XMS | Encounter Summary ---
Demographics + + + | Address | [address] | | | [place] [address] | + + + | Home Phone [...] + +------+ + | Care Broaching Machine Operator Name | Role | Phone [...] 07/30/ | Office | [facility] Center at [facility] | Lukasz Charles, | Major Depressive | | 2006 | Visit | 15th Floor [address] | PhD [address] | Disorder, Recurrent | | | | [address] | Ave [place], [place] | Episode, Moderate; | | | | Code: [facility] Center | [address] | Chronic Abdominal | | | | for Health and | [phone] | Pain; Herniated | | | | Healing, 15th Floor | | Lumbar | | | | [place], [place] | | Intervertebral Disc | | | | [address] | | L4-5; 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 Ms. Meehan has depression and frustration. She is having some difficulty increasing her a ctivity level but she is putting forth effort. She appears to have good insight. Diagnosis: [place] I: 1. (296.32) Major depressive disorder, recurrent, moderate. 2. (309.24) Adjustment disorder with anxiety. 3. 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 [place] II: Deferred [place] III: abdominal pain, migraine headache, low back pain. [place] IV: low finances [place] V: GAF 50 Plan: Return in 2 weeks. Check pacing, relaxation, activity. Check trip to [place]. Check mood. Continue cognitive/behavioral therapy. Total time spent with patient was approximately 45 minutes. LUKASZ CHARLES PHD [facility] [address] [place] [address] documented in this encount er Plan of Treatment + + +--------+ + + | Name | Type | Priori | Associated Diagnoses | Order Schedule | | | | ty | | | + + +--------+ + + | [facility], | Procedures | Routin | Major Depressive | Ordered: 07/31/2006 | | OFFICE ([id number]) | | e | Disorder, Recurrent | [...]
--- OUTSIDE RECORDS SUMMARY | ~2018-11-09 | XMS | Encounter Summary ---
Demographics + + + | Address | [address] | | | [place] [address] | + + + | Home Phone [...] Providers + +------+ + | Care Avionics Supervisor Name | Role | Phone | [...] 10/07/ | Office | [facility] at [facility] | Lukasz Charles, | Major Depressive | | 2006 | Visit | 15th Floor [address] | PhD [address] | Disorder, Recurrent | | | | [address] | [address] [place], [place] | Episode, Moderate | | | | Code: [facility] Center | [address] | (HCC); Spondylosis | | | | for Health and | [phone] | with Myelopathy, | | | | Healing, 15th Floor | | Lumbar Region; | | | | [place], [place] | | Chronic Abdominal | | | | [address] | | Pain; Adjustment | | | | [phone] | | Disorder with | | | [...] will need to continue self-c are. Diagnosis: [place] I: 1. (296.32) Major depressive disorder, recurrent, moderate. 2. (309.24) Adjustment disorder with anxiety. 3. 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 [place] II: Deferred [place] III: abdominal pain, migraine headache, low back pain. [place] IV: low finances [place] V: GAF 50 Plan: Return in 2 weeks. Schedule 4 follow-up appointments. Check preparation for move and for niece's visit. Check Curves gym, pacing, relaxation, activity, distraction. Check "Managin g Pain..." book. Continue cognitive/behavioral therapy. Total time spent with patient was approximately 45 minutes. LUKASZ CHARLES PHD [facility] [address] [facility], [address] [place] [address] documented in this encount er Plan of [...] | | | | ([facility]) Spondylosis | | | | | [...]
--- OUTSIDE RECORDS SUMMARY | ~2018-11-09 | XMS | Encounter Summary ---
Demographics + + + | Address | [address] | | | [place] [address] | + + + | Home Phone [...] Team Providers + +------+ + | Care Eap Consultant Name | Role | Phone | [...]
--- OUTSIDE RECORDS SUMMARY | ~2018-11-09 | XMS | Encounter Summary ---
Demographics + + + | Address | [address] | | | [place] [address] | + + + | Home Phone [...] + +------+ + | Care User Experience Designer Name | Role | Phone | [...] as of this encounter Progress Notes Interface, Negotiator In - 01/12/2005 8:09 AM PDTClinic Date: [...] months. Chris Padgett M.D. ROSA / SHARIF [id number] / [id number] / [id number] / Tdocumented in this encounter Plan of Treatment Not on filedocumented as of this encounter Visit Diagnoses Not on filedocumented in this encounter"
--- OUTSIDE RECORDS SUMMARY | ~2018-11-09 | XMS | Encounter Summary ---
Demographics + + + | Address | [address] | | | [place] [address] | + + + | Home Phone [...] Team Providers + +------+ + | Care Sdet Name | Role | Phone | + [...] Floor [address] | PhD [address] | Disorder, Recurrent | | | | [address] | [place], [place] | Episode, Moderate | | | | Code: [facility] Center | [address] | (HCC); Spondylosis | | | | for Health and | [phone] | with Myelopathy, | | | | Healing, 15th Floor | | Lumbar Region; | | | | [place], [place] | | Chronic Abdominal | | | | [address] | | Pain; Adjustment | | | | [phone] | | Disorder with | | | [...] will need to continue self-c are. Diagnosis: [place] I: 1. (296.32) Major depressive disorder, recurrent, moderate. 2. (309.24) Adjustment disorder with anxiety. 3. 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 [place] II: Deferred [place] III: abdominal pain, migraine headache, low back pain. [place] IV: low finances [place] V: GAF 50 Plan: Return in 2 weeks. Schedule 4 follow-up appointments. Check preparation for move and for niece's visit. Check Curves gym, pacing, relaxation, activity, distraction. Check "Managin g Pain..." book. Continue cognitive/behavioral therapy. Total time spent with patient was approximately 45 minutes. LUKASZ CHARLES PHD [facility] [address] [facility], [address] [place] [address] documented in this encount er Plan of [...]
--- OUTSIDE RECORDS SUMMARY | ~2018-11-09 | XMS | Encounter Summary ---
Demographics + + + | Address | [address] | | | [place] [address] | + + + | Home Phone [...] Providers + +------+ + | Care Medical Records Supervisor Name | Role | Phone [...] Endocrinology | | | | kurt | [facility] | | | | | | [place], [place] | | | | | | [address] | | | +--------+ + + + [...] of this encounter Progress Notes Interface, Industrial Tech Instructor In - 03/12/2007 2:28 AM PDT [id number] GEOVANNI Barnes [id number] Clinic Date: 02/23/2007 Clinic: Endocrinology Subjective: Belinda [...] performed next Thursday, March 01, 2007, in [place]. The right knee will be replaced in [...] patch 25 mcg for 72 hours. 2. [place]/acetaminophen 10 mg/325 mg, 1 every 6 hours [...] months. Beto Meeks M.D. PD / HS [id number] / [id number] / [id number] / [id number] cc: Pedrito Gutierrez M.D. [address] [place] [address] Chris Padgett M.D. Department of Surgery, [facility] Electronically signed by Beto Meeks 03-11-2007 04:41:13 PM nterface, Industrial Tech Instructor In - 03/12/2007 2:28 AM PDT [id number] GEOVANNI SKELTON J [id number] Clinic Date: 02/23/2007 Clinic: Endocrinology Belinda Meehan [...] her primary care provider, Dr. Gutierrez in [place]. She had a followup eye exam today, [...] replacement next Thursday (in 6 days) in [place], [place]. The right knee replacement tentatively will [...] as needed. Beto Meeks M.D. / SHARIF [id number] / [id number] / [id number] / [id number] cc: Pedrito Gutierrez M.D. [address] [place] [address] Joanna Arshad M.D. Electronically signed by Beto Meeks 03-11-2007 04:41:08 PM documented in this encounter Plan of Treatment Not on filedocumented as of this encounter Visit Diagnoses Not on filedocumented in this encounter"
--- OUTSIDE RECORDS SUMMARY | ~2018-11-09 | XMS | Encounter Summary ---
Demographics + + + | Address | [address] | | | [place] [address] | + + + | Home Phone [...] Providers + +------+ + | Care Curing Bin Operator Name | Role | Phone | [...]
--- OUTSIDE RECORDS SUMMARY | ~2018-11-09 | XMS | Encounter Summary ---
Demographics + + + | Address | [address] | | | [place] [address] | + + + | Home Phone [...] Team Providers + +------+ + | Care Commanding Officer Traffic Division Name | Role | Phone | + [...] as of this encounter Progress Notes Interface, Kettle Skimmer In - 01/11/2005 6:26 PM PDT Referred [...] History was obtained from the patient, [facility] medical records, and two magnetic resonance [...] any point. She has been seen her surveillance sensor officer in [facility], Dr. Lc Renteria, who by her report [...] and fibromyalgia. SOCIAL HISTORY: Patient lives in [facility] with her eldest son. She supports herself [...] acute distress. She does have a right-sided Portuguese crutch which she uses to enter and [...] biceps, triceps, wrist extensors, finger extensors, hand jukebox checker, hip flexors and extensors, and ankle, plantar, and dorsiflexors as well as knee flexors and extensors. There is no pronator drift. Reflexes are 2+ and symmetrical at the biceps, triceps, brachioradialis, patellar, and ankle regions. Toes are downgoing to plantar stimulation. Light touch and tuning fork is within normal limits in the lower extremities. Dzsvro-ie-ionl and fine finger movements are within normal [...] migraine headaches. 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 [facility] [address] [facility]. [facility] [id number] signed by Interface, Kettle Skimmer In at 2004 6:26 PM PDTdocumented in this encounter Plan of Treatment Not on filedocumented as of this encounter Visit Diagnoses Not on filedocumented in this encounter"
--- OUTSIDE RECORDS SUMMARY | ~2018-11-09 | XMS | Encounter Summary ---
[...] + +------+ + | Care Heating Unit Mechanic Name | Role | Phone | [...] | Activity | Sara Hartley | [address] [facility] | | | | | [facility] Mailcode: | [address] | | | | | [address] [place], [place] | [place], [place] | | | | | [address] | [address] | | | | | [phone] | | | | | | | [...] [facility] | [address] [facility] | [place] [address] | | | PATHOLOGY | [address] | | | + + + + + | [facility] | [address] [place] [address] | [place] [address] | | | PATHOLOGY | [address] [...] | [facility] DEPARTMENT | [address] [facility] | [place] [address] | | | PATHOLOGY | [address] | | | + + + + + | [facility] | [address] [place] [address] | [place] [address] | | | PATHOLOGY | [address] [...] [facility] DE[facility] | [address] | [place] [address] | | | PATHOLOGY | [address] | | | + + + + + | [place] DEPARTMENT OF | [address] | [place] [address] | | | PATHOLOGY | [address] | | | + + + + + MAGNESIUM, PLASMA (12/07/2004 6:42 AM PDT) + +-------+ + + + | Component | Value | Ref Range | Performed | Pathologist | | | | | At | Signature | + +-------+ + + + | MAGNESIUM,P | 1.8 | 1.8 - 2.5 mg/dL | [facility] | | | LASMA | | | [...] [facility] DEPARTMENT OF | [address] [facility] | [place] [address] | | | PATHOLOGY | [address] | | | + + + + + | [facility] DEPARTMENT OF | [facility] | [place] [address] | | | PATHOLOGY | [address] | | | + + + + + documented in this encounter Visit Diagnoses Not on filedocumented in this encounter"
--- OUTSIDE RECORDS SUMMARY | ~2018-11-09 | XMS | Encounter Summary ---
Demographics + + + | Address | [address] | | | [place] [address] | + + + | Home Phone [...] Team Providers + +------+ + | Care Sharepoint Admin Name | Role | Phone | [...] | Registratio | Sara Hartley | [address] [facility] | | | | n | [facility] Mailcode: | [address] | | | | | [address] [place], [place] | [place], [place] | | | | | [address] | [address] | | | | | [phone] | [phone] | | | | | | | [...] [facility] DEPARTMENT OF | [address] | [place] [address] | | | PATHOLOGY | [address] | | | + + + + + | [place] DEPARTMENT OF | [address] | [place] [address] | | | PATHOLOGY | [address] [...] | [facility] DEPARTMENT OF | [address] | [place] [address] | | | PATHOLOGY | [address] | | | + + + + + | [facility] DEPARTMENT OF | [address] | [place] [address] | | | PATHOLOGY | [address] [...] Performed At | + + + | [id number] Estimated GFR > 60 mL/min/1.73 sq m if non- | [facility] | | [id number] Estimated GFR > 60 mL/min/1.73 sq m [...] + | [facility] | [address] | [place] [address] | | | PATHOLOGY | [address] | | | + + + + + | [facility] | [address] | [place] [address] | | | PATHOLOGY | [address] | | | + + + + + documented in this encounter Visit Diagnoses Not on filedocumented in this encounter"
--- OUTSIDE RECORDS SUMMARY | ~2018-11-09 | XMS | Encounter Summary ---
Demographics + + + | Address | [address] | | | [place] [address] | + + + | Home Phone [...] Team Providers + +------+ + | Care Cube Cutter Name | Role | Phone | [...] | | | | Road Mailcode: | [place], [place] | | | | | [address] [facility] | [address] | | | | | [address] | [phone] | | | | | [place], [place] | | | | | | [address] | | | | | | [phone] | | | +--------+ + + + [...] [facility] | [address] | [place], [place] | | | [facility] | | [address] | | + + + + + documented in this encounter Visit Diagnoses + + | Diagnosis | + + | Chronic abdominal pain - Primary Abdominal pain, unspecified site | + + documented in this encounter"
--- OUTSIDE RECORDS SUMMARY | ~2018-11-09 | XMS | Encounter Summary ---
Demographics + + + | Address | [address] | | | [place] [address] | + + + | Home Phone [...] Providers + +------+ + | Care Boxing And Pressing Supervisor Name | Role | Phone | [...] Densitometry | | MD Beto | Density [facility] | | | | | Osteoporosis | [address] | [address] | | | | | Procedures | Ave | Naeem Mcrae | | | | | CONSULT TO | [place], [place] | Road | | | | | BONE | [address] | Mailcode: | | | | | DENSITOMETRY | Phone: | RODERICK Jayce | | | | | | [phone] | [facility] | | | | | | Fax: | [place], [place] | | | | | | [phone] | [address] | | | | | | | Phone: | | | | | | | [phone] | | | | | | | Fax: | | | | | | | [phone] | +--------+--------+ + + + + Encounter [...] | | Clinical Nutrition | [address] [place], | Symptomatic | | | | [address] | [place] [address] | Menopausal or Female | | | | [address] | | Climacteric States; | | | | Mailcode: [address] [place] [address] | | Disorder of Bone | | | | Naeem De La Rosa | | and Cartilage, | | | | [place], [place] | | Unspecified | | | | [address] | | | | | | [phone] | | | +--------+---------+ + + + [...]
--- OUTSIDE RECORDS SUMMARY | ~2018-11-09 | XMS | Encounter Summary ---
Demographics + + + | Address | [address] | | | [place] [address] | + + + | Home Phone [...] Team Providers + +------+ + | Care Mounted Police Name | Role | Phone | [...] | | | | | | | [address] | | | | | | | [address]rae | | | | | | | [place], | | | | | | | [place] | | | | | | | [address] | | | | | | | Phone: | | | | | | | [phone] | | | | | | | Fax: | | | | | | | [phone] | +--------+--------+ + + + + Encounter Details +--------+---------+ + + + | Date | Type | Department | Care Team | Description | +--------+---------+ + + + | 07/10/ | Office | Digestive Health | Eliezer Ruano, | Abdominal Pain, | | 2008 | Visit | Center [address] | [address] | dumping syndrome Hx | | | | [address] Mailcode: | [address] | of gastric bypass | | | | [facility] | [place], [place] | (Primary Dx) | | | | Health and Healing, | [address] | | | | | 6th floor [place], | [phone] | | | | | [place] [address] | | | | | | [phone] | | | +--------+---------+ + + + [...] and plan of care. ELIEZER RUANO MD [address] [place] Mailcode: [place] [address] Yuriy Mayo MD - 06/16 [...] surgery, L5-S1 fusion with spur removal in [place], [place] 7 weeks ago. Allergies Allergen Reactions [...] 300 mg) by oral route once daily yjtlyhvzak-rhckfnxqxuiqn-gwfvahmk (FIORICET) 50-325-40 mg Oral Tablet take 2 [...] 278 01/18 Paniculectomy Hx lumbar fusion 05/2008 L1-P2tjjcic with bone spur removals Review of Systems: [...]
--- OUTSIDE RECORDS SUMMARY | ~2018-11-09 | XMS | Encounter Summary ---
Demographics + + + | Address | [address] | | | [place] [address] [...] Team Providers + +------+ + | Care Multi Operation Machine Operator Name | Role | Phone [...] | | | | Clinical Nutrition | [place], [place] | | | | | [address] | [address] | | | | | [facility] | [phone] | | | | | Mailcode: OPC5 | | | | | | Outpatient Clinic | | | | | | [facility] | | | | | | [place] [address] | | | | | | [phone] | | | +--------+ + + + [...] Test performed by | | | [facility]. | | + + + + + + + + | Performing | Address | City/State/Zipcode | Phone Number | | Organization | | | | + + + + + | [facility] | [address] | [place] [address] | | | LABORATORY | | | [...] + + | [facility] | [address] | [place] [address] | | | LABORATORY | | | | + + + + + documented in this encounter Visit Diagnoses Not on filedocumented in this encounter"
--- OUTSIDE RECORDS SUMMARY | ~2018-11-09 | XMS | Encounter Summary ---
Demographics + + + | Address | [address] | | | [place] [address] | + + + | Home Phone [...] Providers + +------+ + | Care Chief Deputy Court Clerk Name | Role | Phone [...] of this encounter Progress Notes Interface, Trim Master Operator In - 01/11/2005 8:56 PM PDTClinic [...] bypass surgery and will be admitted to [facility] for this procedure on November 22, [...] above assessment and plan. Ester Romero M.D. Issca Meeks M.D. / [id number] / [id number] / [id number] / [id number] Tdocumented in this encounter Plan of Treatment Not on filedocumented as of this encounter Visit Diagnoses Not on filedocumented in this encounter"
--- OUTSIDE RECORDS SUMMARY | ~2018-11-09 | XMS | Encounter Summary ---
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 Provider: DELFINA MOLINA ANP Nathalia Keyes - 007 12:04 PM PST Physical Therapy Medicare Progress Note Date: 08/12/2006 Belinda Meehan [id number]. 1960 Start of Care: 06/23/2006 Referring Provider: [...] + + +--------+ + + | PA THERAPEUTIC | Procedures | Routin | Spondylosis [...] + + +--------+ + + | PA THERAPEUTIC | Procedures | Routin | Spondylosis [...]
--- OUTSIDE RECORDS SUMMARY | ~2018-11-09 | XMS | Encounter Summary ---
Demographics + + + | Address | [address] | | | [place] [address] [...] Providers + +------+ + | Care Digital Printer Operator Name | Role | Phone [...] | | | 2006 | Registratio [address] | JIMBO | | | | n | [facility] Mailcode: | | | | | | [address] [place], [place] | | | | | | [address] | | | | | | [phone] | | | +--------+ + + + [...]
--- OUTSIDE RECORDS SUMMARY | ~2018-11-09 | XMS | Encounter Summary ---
Demographics + + + | Address | [address] | | | [place] [address] | + + + | Home Phone [...] Organization | [facility] | [...] Providers + +------+ + | Care Hot Molder Name | Role | Phone | [...] | 30.0-34.9) | [address] | [address] | | | | | Nausea | [address] | [place], | | | | | Dumping | [place], | [place] [address] | | | | | syndrome | [place] [address] | Phone: | | | | | | Phone: | [phone] | | | | | | [phone] | Fax: | | | | | | Fax: | [phone] | | | | | | [phone] | | +--------+ + + + + [...] | | | [place], | [place] [address] | | | | | | [place] | Phone: | | | | | | [address] | [phone] | | | | | | Phone: | Fax: | | | | | | [phone] | [phone] | | | | | | Fax: | | | | | | | [phone] | | + + + + + [...] | | | [place], | [place] [address] | | | | | | [place] | Phone: | | | | | | [address] | [phone] | | | | | | Phone: | Fax: | | | | | | [phone] | [phone] | | | | | | Fax: | | | | | | | [phone] | | + + + + + + + Encounter Details +--------+---------+ + + + | Date | Type | Department | Care Team | Description | +--------+---------+ + + + | 10/18/ | Office | [facility] | Alanis, | Obesity (BMI | | 2019 | Visit | GASTROENTEROLOGY | MD Petrona | 30.0-34.9) (Primary | | | | [address] | [address] [place] | Dx); Nausea; Dumping | | | | [address] [place], [place] | [place] [address] | syndrome; 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
--- OUTSIDE RECORDS SUMMARY | ~2018-11-09 | XMS | Encounter Summary ---
Demographics + + + | Address | [address] | | | [place] [address] | + + + | Home Phone [...] Providers + +------+ + | Care Night Nurse Name | Role | Phone | [...] | Pain | Diagnoses | Miracle, | Rabun, | | | | Management | LBP (low | NIHARIKA Jean | Lukasz Rhodes, PhD | | | | | back pain) | [address] | | | | | DJD | [address] | [address] | | | | | (degenerativ | [place], [place] | [place], [place] | | | | | e joint | [address] | [address] | | | | | disease) of | | Phone: | | | | | knee Knee | | [phone] | | | | | pain Major | | Fax: | | | | | depressive | | [phone] | | | | | disorder, | [...] / | Office | [facility] | Lukasz Charles, | Major Depressive | | 2007 | Visit | 15th Floor [address] | PhD [address] | Disorder, Recurrent | | | | [address] Mail | Ave [place], [place] | Episode, Moderate | | | | Code: [facility] Center | [address] | ([facility]); LBP (Low Back | | | | for Health and | [phone] | Pain); Fibromyalgia | | | | Healing, 15th Floor | | syndrome 729.1; | | | | [place], [place] | | Adjustment Disorder | | | | [address] | | with Anxiety; | | | | [phone] | | Bilateral Knee Pain; | | [...] skills during intense pain episode s. Diagnosis: Arabi I: 1. (296.32) Major depressive disorder, recurrent, moderate. 2. (309.24) Adjustment disorder with anxiety. 3. 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 Arabi II: Deferred Arabi III: abdominal pain, migraine headache, low back pain. Arabi IV: low finances Arabi V: GAF 55-60 Plan: return with next medical follow-up appointment. Check mood, knee surgery, relaxatio n, activity, distraction. Continue cognitive/behavioral therapy. Total time spent with patient was approximately 45 minutes. LUKASZ CHARLES [facility] [address] [facility], [address] [place] [address] documented in this encount er Plan of Treatment + + +--------+ + + | Name | Type | Priori | Associated Diagnoses | Order Schedule | | | | ty | | | + + +--------+ + + | FL PSYCHOTHERPY, | Procedures | Routin | Major Depressive | Ordered: 08/13/2007 | | OFFICE (73-02) | | e | Disorder, Recurrent | | | | | | Episode, Moderate | | | | | | ([facility]) LBP (Low Back | | [...]
--- OUTSIDE RECORDS SUMMARY | ~2018-11-09 | XMS | Encounter Summary ---
Demographics + + + | Address | [address] | | | [place] [address] | + + + | Home Phone [...] Providers + +------+ + | Care Hospice Bereavement Coordinator Name | Role | Phone | [...] | | 2004 | anned | [address] [facility] | | | | | | [facility] | | | | | | [place], [place] | | | | | | [address] | | | +--------+ + + + [...]
--- OUTSIDE RECORDS SUMMARY | ~2018-11-09 | XMS | Encounter Summary ---
Demographics + + + | Address | [address] | | | [place] [address] | + + + | Home Phone [...] Providers + +------+ + | Care Burr Filer Name | Role | Phone | + [...] [address] | | | | | [facility] | [place], [place] | | | | | [address] | [address] | | | | | [address] | [phone] | | | | | Road Mailcode: | | | | | | [id number] Physicians | | | | | | [address], | | | | | | [place] [address] | | | | | | [phone] | | | +--------+--------+ + + + [...]
--- OUTSIDE RECORDS SUMMARY | ~2018-11-09 | XMS | Encounter Summary ---
Demographics + + + | Address | [address] | | | [place] [address] | + + + | Home Phone [...] Providers + +------+ + | Care It Operations Analyst Name | Role | Phone [...] as of this encounter Progress Notes Interface, China Decorator In - 08/19/2005 2:05 AM PST [id number] [facility] Date: 07/29/2005 Clinic: Hematology [...] pursue aggressive iron supplementation. Lukasz Sellers M.D. toe lining closer NANCY / SHARIF [id number] / [id number] / [id number] / [id number] cc: Pedrito Gutierrez M.D. [address] [place] [address] Electronically signed by Lukasz Sellers 08-18-2005 01:28:12 PM documented i n this encounter Plan of Treatment Not on filedocumented as of this encounter Visit Diagnoses Not on filedocumented in this encounter"
--- OUTSIDE RECORDS SUMMARY | ~2018-11-09 | XMS | Encounter Summary ---
Demographics + + + | Address | [address] | | | [place] [address] | + + + | Home Phone [...] Providers + +------+ + | Care Clinical Appeals Specialist Name | Role | Phone [...] as of this encounter Progress Notes Interface, Varnish Finisher In - 08/19/2005 2:05 AM PST [id number] [facility] Date: 07/24/2005 Clinic: Hematology/Oncology [...] or malignancies. 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 She still smokes 1/2 [...] are appreciated. No petechiae. Laboratory: Labs from [place]: Homocysteine 8.5 and SANIA negative. CBC: White [...] laboratory studies that have been obtained from [place], it does not appear that she has [...] supplementation. Karen Hoff M.D. Lukasz Sellers M.D. tack welder / [id number] / [id number] / [id number] / [id number] cc: Pedrito Gutierrez M.D. [facility] [address] [place] [address] FAX: [phone] Electronically signed by Lukasz Sellers 08-18-2005 01:27:53 PM documented i n this encounter Plan of Treatment Not on filedocumented as of this encounter Visit Diagnoses Not on filedocumented in this encounter"
--- OUTSIDE RECORDS SUMMARY | ~2018-11-09 | XMS | Encounter Summary ---
Demographics + + + | Address | [address] | | | [place] [address] | + + + | Home Phone [...] Providers + +------+ + | Care Forest Science Professor Name | Role | Phone [...] | | | Clinical Nutrition | [place], [place] | | | | | [address] | [address] | | | | | [facility] | [phone] | | | | | Mailcode: OPC5 | | | | | | Outpatient Clinic | | | | | | [facility] | | | | | | [place] [address] | | | | | | [phone] | | | +--------+ + + + [...] Test performed by | | | [facility]. | | + + + + + + + + | Performing | Address | City/State/Zipcode | Phone Number | | Organization | | | | + + + + + | [facility] | [address] | [place] [address] | | | LABORATORY | | | [...] + + + + + | [facility] | [address] | [place] [address] | | | LABORATORY | | | | + + + + + documented in this encounter Visit Diagnoses Not on filedocumented in this encounter"
--- OUTSIDE RECORDS SUMMARY | ~2018-11-09 | XMS | Encounter Summary ---
Demographics + + + | Address | [address] | | | [place] [address] | + + + | Home Phone [...] Providers + +------+ + | Care Human Services Worker Name | Role | Phone [...] | +--------+ + + + + | 09/19/ | Telephone | Kraig Turner | Beto Meeks MD | Lab Results | | 2007 | | [facility] | [address] | | | | | [facility] | [place], [place] | | | | | [place] [address] | [address] | | | | | [address] | [phone] | | | | | Road Physicians | | | | | | [facility] | | | | | | [facility] [place], | | | | | | [place] [address] | | | | | | [phone] | | | +--------+ + + + [...]
--- OUTSIDE RECORDS SUMMARY | ~2018-11-09 | XMS | Encounter Summary ---
Demographics + + + | Address | [address] | | | [place] [address] | + + + | Home Phone [...] + +------+ + | Care Digital Marketing Project Manager Name | Role | Phone [...] | Activity | [address] | [address] [facility] | | | | | [facility] Mailcode: | [address] | | | | | [address] [place], [place] | [place], [place] | | | | | [address] | [address] | | | | | [phone] | [phone] | | | | | | | [...]
--- OUTSIDE RECORDS SUMMARY | ~2018-11-09 | XMS | Encounter Summary ---
Demographics + + + | Address | [address] | | | [place] [address] | + + + | Home Phone [...] Providers + +------+ + | Care Migratory Worker Name | Role | Phone | + +------+ + | Sulaiman Carrera MD | PCP | Unavailable | + +------+ + Encounter Details +--------+ + + + + | Date | Type | Department | Care Team | Description | +--------+ + + + + | 02/23/ | Ancillary | Registration [id number] | Beto eMeks MD | | | 2006 | Registratio | [address] | [address] | | | | n | [facility] Mailcode: | [place], [place] | | | | | [address] [place], [place] | [address] | | | | | [address] | [phone] | | | | | [phone] | | | +--------+ + + + [...] | + + + + + | [facility] | [address] | [place] [address] | | | LABORATORY | | | [...] Laboratories,[address] | | | | | | [facility], [facility] [place] | | | | | | [address] | | | | | | [phone]. | | | | | | Sincere [...] [facility] | [address] | [place], [place] | | | [facility] | | [address] | | + + + + + documented in this encounter Visit Diagnoses Not on filedocumented in this encounter"
--- OUTSIDE RECORDS SUMMARY | ~2018-11-09 | XMS | Encounter Summary ---
Demographics + + + | Address | [address] | | | [place] [address] | + + + | Home Phone [...] Team Providers + +------+ + | Care Battalion Fire Chief Name | Role | Phone | [...] | | | | | | [address] | | | | | | [facility] | | | | | | [place], [place] | | | | | | [address] | | | | | | [phone] | | | +--------+ + + + [...]
--- OUTSIDE RECORDS SUMMARY | ~2018-11-09 | XMS | Encounter Summary ---
Demographics + + + | Address | [address] | | | [place] [address] | + + + | Home Phone [...] Providers + +------+ + | Care Service Crew Supervisor Name | Role | Phone [...] | | 2006 | anned | [address] [facility] | | | | | | [facility] | | | | | | [place], [place] | | | | | | [address] | | | +--------+ + + + [...]
--- OUTSIDE RECORDS SUMMARY | ~2018-11-09 | XMS | Encounter Summary ---
Demographics + + + | Address | [address] | | | [place] [address] | + + + | Home Phone [...] Team Providers + +------+ + | Care Meeting Coordinator Name | Role | Phone | [...] of this encounter Progress Notes Interface, Fire Management Specialist In - 12/09/2005 2:08 AM PDT [id number] GEOVANNI Barnes [id number] Clinic Date: 11/26/2005 Clinic: General Surgery Clinic [...] with extensive workup. Prescription picked up at [facility] on November 25, 2005, for 50 oxycodone 5 mg. Melisa Thorne / SHARIF [id number] / [id number] / [id number] / [id number] Electronically signed by Kenisha Melton 12-05-2005 08:28:34 PM documented i n this encounter Plan of Treatment Not on filedocumented as of this encounter Visit Diagnoses Not on filedocumented in this encounter"
--- OUTSIDE RECORDS SUMMARY | ~2018-11-09 | XMS | Encounter Summary ---
Demographics + + + | Address | [address] | | | [place] [address] | + + + | Home Phone [...] + +------+ + | Care Automotive Sales Specialist Name | Role | Phone [...] [address] | | | | | | [place], [place] | | | | | | [address] | | | | | | [phone] | | | +--------+ + + + [...]
--- OUTSIDE RECORDS SUMMARY | ~2018-11-09 | XMS | Encounter Summary ---
Demographics + + + | Address | [address] | | | [place] [address] [...] Team Providers + +------+ + | Care Electrophysiology Technologist Name | Role | Phone | [...] | [facility] [address] | STATION ENGINEER MAIN LINE | syndrome 729.1 | | | | [address] | | (Primary Dx); | | | | Physicians [place] | | Fibromyalgia | | | | [place], [place] | | | | | | [address] | | | | | | [phone] | | | +--------+---------+ + + + [...]
--- OUTSIDE RECORDS SUMMARY | ~2018-11-09 | XMS | Encounter Summary ---
Demographics + + + | Address | [address] | | | [place] [address] | + + + | Home Phone [...] Providers + +------+ + | Care Tool Honing Machine Set Up Operator Name | Role [...] as of this encounter Progress Notes Byron, Environmental Communications Specialist In - 01/12/2005 6:46 AM PDTClinic [...] months. Chris Padgett M.D. CD / HS [id number] / [id number] / [id number] / Tdocumented in this encounter Plan of Treatment Not on filedocumented as of this encounter Visit Diagnoses Not on filedocumented in this encounter"
--- OUTSIDE RECORDS SUMMARY | ~2018-11-09 | XMS | Encounter Summary ---
Demographics + + + | Address | [address] | | | [place] [address] | + + + | Home Phone [...] Team Providers + +------+ + | Care Pace Analyst Name | Role | Phone | [...] and counseling (labs | | | | [facility] for | [place], [place] | done on 07/01/07) | | | | Health and Healing, | [address] | | | | | [address] [place] [address], | [phone] | | | | | [place] [address] | | | | | | [phone] | | | +--------+ + + + [...]
--- OUTSIDE RECORDS SUMMARY | ~2018-11-09 | XMS | Encounter Summary ---
Demographics + + + | Address | [address] | | | [place] [address] [...] Providers + +------+ + | Care Medical Officer Name | Role | Phone | [...] | | | [address]chal Kov[address] Mailcode: | [facility] | | | | | [address] for | [place], [place] | | | | | Health and Healing, | [address] | | | | | [address] [facility], | [phone] | | | | | [place] [address] | | | | | | [phone] | | | +--------+--------+ + + + [...]
--- OUTSIDE RECORDS SUMMARY | ~2018-11-09 | XMS | Encounter Summary ---
Demographics + + + | Address | [address] | | | [place] [address] | + + + | Home Phone [...] Providers + +------+ + | Care Wine Consultant Name | Role | Phone | [...] | | | | | n | [facility] Mailcode: | | | | | | [address] [place], [place] | | | | | | [address] | | | | | | [phone] | | | +--------+ + + + [...]
--- OUTSIDE RECORDS SUMMARY | ~2018-11-09 | XMS | Encounter Summary ---
Demographics + + + | Address | [address] | | | [place] [address] | + + + | Home Phone [...] Providers + +------+ + | Care Web Applications Programmer Name | Role | Phone | [...] | Pain | Diagnoses | Miracle, | Archuleta, | | | | Management | LBP (low | NIHARIKA Jean | Lukasz Rhodes, PhD | | | | | back pain) | [address] | | | | | DJD | [address] | [address] | | | | | (degenerativ | [place], [place] | | | | | e joint | [address] | [address] | | | | | disease) of | | Phone: | | | | | knee Knee | | [phone] | | | | | pain Major | | Fax: | | | | | depressive | | [phone] | | | | | disorder, | [...] | Office | [facility] at [facility] | Lukasz Charles, | Major Depressive | | 2008 | Visit | 15th Floor [address] | PhD [address] | Disorder, Recurrent | | | | [address] Mail | Ave [place], [place] | Episode, Mild (HCC); | | | | Code: [facility] Center | [address] | LBP (Low Back | | | | for Health and | [phone] | Pain); Migraine | | | | Healing, 15th Floor | | Headache | | | | [place], [place] | | | | | | [address] | | | | | | [phone] | | | +--------+---------+ + + + [...] specialist this week. She reported that sh Relatient has done some sewing and she found [...] benefit as she becomes more active. Diagnosis: [place] I: 1. (296.31) Major depressive disorder, recurrent, mild. 2. (309.24) Adjustment disorder with anxiety. 3. 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 [place] II: Deferred [place] III: abdominal pain, migraine headache, low back pain. [place] IV: low finances [place] V: GAF 55-60 Plan: return with next medical follow-up appointment. Check mood, pain, surgical recovery , relaxation, activity, distraction, eating. Ask about headache specialist, physical therap y. Continue cognitive/behavioral therapy. Total time spent with patient was approximately 45 minutes. LUKASZ CHARLES PHD [facility] [address] [facility], 4th [place] [address] documented in this en counter Plan of [...]
--- OUTSIDE RECORDS SUMMARY | ~2018-11-09 | XMS | Encounter Summary ---
Demographics + + + | Address | [address] | | | [place] [address] | + + + | Home Phone [...] Providers + +------+ + | Care It Security Consultant Name | Role | Phone [...] 2007 | Only | Sara Hartley | [phone] | | | | | [facility] Mailcode: | | | | | | [address] [place], [place] | | | | | | [address] | | | | | | [phone] | | | +--------+ + + + [...] [facility] [place] DEPARTMENT OF | [address] | [place] [address] | | | PATHOLOGY | [address] | | | + + + + + | [facility] DEPARTMENT OF | [address] | [place] [address] | | | PATHOLOGY | [address] | | | + + + + + documented in this encounter Visit Diagnoses Not on filedocumented in this encounter"
--- OUTSIDE RECORDS SUMMARY | ~2018-11-09 | XMS | Encounter Summary ---
Demographics + + + | Address | [address] | | | [place] [address] | + + + | Home Phone [...] + +------+ + | Care Cnc Machine Operator Name | Role | Phone [...] | | | | | Encounter | [place], [place] | | | | | for | [address] | [address] | | | | | long-term | | Phone: | | | | | (current) | | [phone] | | | | | use of other | | Fax: | | | | | medications | | [phone] | | | | | LBP (low [...] | | [address] Mail | Ave [place], [place] | episode, moderate | | | | Code: [facility] Center | [address] | ([facility]) (Primary Dx); | | | | for Health and | [phone] | LBP (low back pain); | | | | Healing, 15th Floor | | Fibromyalgia; | | | | [place], [place] | | Adjustment disorder | | | | [address] | | with anxiety | | | | [phone] | | | +--------+---------+ + + + [...] - 04/21/2013 11:51 AM PSTPROGRESS NOTE: Belinda Meehna is a 53 y.o. female with diffuse body pain. I have not seen her since . She has started seeing a new primary care provider who recommended that she return to [facility] for pain assessment and treatment. [...] some changes in her living situation. Diagnosis: [place] I: 1. (296.32) Major depressive disorder, recurrent, moderate. 2. (309.24) Adjustment disorder with anxiety. [place] II: Deferred [place] III: abdominal pain, migraine headache, low back pain, fibromyalgia. [place] IV: low finances [place] V: GAF 55-60 Plan: return in 1 month. Check mood, pain, activity. Ask about visiting with Dr. Montero, spinal cord stimulator, any changes at home. Continue cognitive/behavioral therapy. Total time spent with patient was approximately 50 minutes. LUKASZ CHARLES PHD [facility] [address] [place] [address] And [facility], [address] [place] [address] documented in this en counter Plan of [...]
--- OUTSIDE RECORDS SUMMARY | ~2018-11-09 | XMS | Encounter Summary ---
Demographics + + + | Address | [address] | | | [place] [address] | + + + | Home Phone [...] Providers + +------+ + | Care Building Services Supervisor Name | Role | Phone [...] of this encounter Progress Notes Interface, Color Technician In - 12/07/2005 3:08 AM [facility] [place] [address] [place], [place] [address] or January 31, 2003 Pedrito Gutierrez M.D. [address] [place] [address] RE: BELINDA MEEHAN MR #: [id number] Dear Dr. Gutierrez: I had the pleasure [...] She had surgery 5 days ago in [place] on her right hand and wrist, for [...] time to help minimize her travel to [place]. In the meantime, please feel free to contact me if you have other questions, concerns, or suggestions regarding her condition. Sincerely, Issac Meeks M.D. stud beef cattle farmer Division of Endocrinology, Diabetes, and Clinical Nutrition, Director of Metabolic Disorders Clinic MONIQUE / SHARIF [id number] / [id number] / [id number] / Tdocumented in this encounter Plan of Treatment Not on filedocumented as of this encounter Visit Diagnoses Not on filedocumented in this encounter"
--- OUTSIDE RECORDS SUMMARY | ~2018-11-09 | XMS | Encounter Summary ---
Demographics + + + | Address | [address] | | | [place] [address] | + + + | Home Phone [...] Team Providers + +------+ + | Care Worsted Winder Name | Role | Phone | [...] Medication requested | | 2007 | | [place] [address] | [address] | (sucralfate | | | | Mychal Kovacs Mailcode: | [address] | (CARAFATE) 1 gram | | | | [address] | [place], [place] | Oral Tablet) | | | | Health and Healing, | [address] | | | | | [address] [place] [address], | [phone] | | | | | [place] [address] | | | | | | [phone] | | | +--------+ + + + [...]
--- OUTSIDE RECORDS SUMMARY | ~2018-11-09 | XMS | Encounter Summary ---
Demographics + + + | Address | [address] | | | [place] [address] | + + + | Home Phone [...] + +------+ + | Care Make Up Man Name | Role | Phone [...] | | | | | | Floor [place], [place] | | | | | | [address] | | | | | | [phone] | | | +--------+ + + + [...]
--- OUTSIDE RECORDS SUMMARY | ~2018-11-09 | XMS | Encounter Summary ---
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 2. May continue with [place] NTE 4 per day as prescribed 3. [...] seen Dr. Morales in orth opedics at [facility], she reports that surgery is not [...] swelling has resolved. Belinda has been using [place] 10/325 an average of 5 tablets per day. 1 tablet has an effecti ve duration of 5 hours "pain breaks through at about 4 hours", she reports taking a [place] ev eduardo 5 hours. She denies any [...] Collection Time Resulting Agency 07/30/2006 4:00 PM [facility] DEPARTMENT OF PATHOLOGY Component Results [...] previous 6 days. 2. May continue with [place] NTE 4 per day as prescribed 3. Continue with PT and Psychology as scheduled. 4. Continue with Trileptal 150mg 1 1/2 tablet twice a day 5. Follow up to review medications on 09/09/06 and call with any concerns or questions. DELFINA MOLINA [facility] Mail code CH 4P [facility] and [address] [address] Ailyn [place] - 08/27/19 9:09 [...] medication refills today? yes [facility] Plan of Treatment Not on filedocumented as [...]
--- OUTSIDE RECORDS SUMMARY | ~2018-11-09 | XMS | Encounter Summary ---
Demographics + + + | Address | [address] | | | [place] [address] | + + + | Home Phone [...] Providers + +------+ + | Care Fish And Wildlife Biologist Name | Role | Phone | [...] | | | | | n | [facility] Mailcode: | | | | | | [address] [place], [place] | | | | | | [address] | | | | | | [phone] | | | +--------+ + + + [...]
--- OUTSIDE RECORDS SUMMARY | ~2018-11-09 | XMS | Encounter Summary ---
Demographics + + + | Address | [address] | | | [place] [address] | + + + | Home Phone [...] Team Providers + +------+ + | Care Bible Teacher Name | Role | Phone | [...] Rd | | | | | S[facility]INA [facility] | [place], [place] | | | | | Health and Healing, | [address] | | | | | 6th floor [place], | [phone] | | | | | [place] [address] | | | | | | [phone] | | | +--------+ + + + [...]
--- OUTSIDE RECORDS SUMMARY | ~2018-11-09 | XMS | Encounter Summary ---
Demographics + + + | Address | [address] | | | [place] [address] | + + + | Home Phone [...] | Registratio | Sara Hartley | [address] [facility] | | | | n | [facility] Mailcode: | [address] | | | | | [address] [place], [place] | [place], [place] | | | | | [address] | [address] | | | | | [phone] | [phone] | | | | | | | [...]
--- OUTSIDE RECORDS SUMMARY | ~2018-11-09 | XMS | Encounter Summary ---
Demographics + + + | Address | [address] | | | [place] [address] | + + + | Home Phone [...] | + + +---------+ + | Marco Atnonio Wells | ECON | Unknown | | + + +---------+ + Care Team Providers + +------+ + | Care Assistant Softball Coach Name | Role | Phone | [...] | Pain | Diagnoses | Miracle, | [place], | | | | Management | LBP (low | NIHARIKA Jean | Lukasz Rhodes, PhD | | | | | back pain) | [address] | | | | | DJD | [address] | [address] | | | | | (degenerativ | [place], [place] | [place], [place] | | | | | e joint | [address] | [address] | | | | | disease) of | | Phone: | | | | | knee Knee | | [phone] | | | | | pain Major | | Fax: | | | | | depressive | | [phone] | | | | | disorder, | [...] | | [address] Mail | Ave [place], [place] | Episode, Mild (HCC); | | | | Code: [facility] Center | [address] | LBP (Low Back | | | | for Health and | [phone] | Pain); Migraine | | | | Healing, 15th Floor | | Headache | | | | [place], [place] | | | | | | [address] | | | | | | [phone] | | | +--------+---------+ + + + [...] specialist this week. She reported that sh Spacebar has done some sewing and she found [...] benefit as she becomes more active. Diagnosis: [place] I: 1. (296.31) Major depressive disorder, recurrent, mild. 2. (309.24) Adjustment disorder with anxiety. 3. 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 [place] II: Deferred [place] III: abdominal pain, migraine headache, low back pain. [place] IV: low finances [place] V: GAF 55-60 Plan: return with next medical follow-up appointment. Check mood, pain, surgical recovery , relaxation, activity, distraction, eating. Ask about headache specialist, physical therap y. Continue cognitive/behavioral therapy. Total time spent with patient was approximately 45 minutes. LUKASZ CHARLES PHD [facility] [address] [facility], 4th [place] [address] documented in this en counter Plan of [...]
--- OUTSIDE RECORDS SUMMARY | ~2018-11-09 | XMS | Encounter Summary ---
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 1960 Start of Care: 06/23/2006 Referring Provider: [...] keep hydrated, went to the ED in [place] and was sent home by the M.DYudy There without a ny treatment and advised by him to contact the pain clinic. Patient did not some relief with her last treatment, and continues her exercises consistent ly. She is walking daily at [facility] for 15-20 minutes, sitting X [...]
--- OUTSIDE RECORDS SUMMARY | ~2018-11-09 | XMS | Encounter Summary ---
Demographics + + + | Address | [address] | | | [place] [address] | + + + | Home Phone [...] Providers + +------+ + | Care Roving Tester Laboratory Name | Role | Phone | [...] | | 2006 | Visit | Center [facility] | [address] | Pain; Cervical Pain; | | | | [place] [address] | [address] [place], | Pain in Joint, Site | | | | [address] Mail Code: | [place] [address] | Unspecified; | | | | [facility] [place] for | | Depression | | | | Health and Healing, | | | | | | 15th Floor | | | | | | [place], [place] | | | | | | [address] | | | | | | [phone] | | | +--------+---------+ + + + [...] EVALUATION NOTE Date: 06/23/2006 Name: Belinda Meehan [id number] 46 y.o. female Start of Care: 06/23/2005 [...] the last few gregory hs. Handedness: right [place]: [place], [place] Chief Complaint: Headaches and cervical pain, bilateral [...]
--- OUTSIDE RECORDS SUMMARY | ~2018-11-09 | XMS | Encounter Summary ---
Demographics + + + | Address | [address] | | | [place] [address] | + + + | Home Phone [...] Providers + +------+ + | Care Certified Pathology Assistant Name | Role | Phone | + +------+ + | Pedrito Gutierrez MD | PCP | | + +------+ + Encounter Details +--------+ + + + + | Date | Type | Department | Care Team | Description | +--------+ + + + + | 04/17/ | Telephone | [facility] Division of | Carlos Arreola, | | | 2005 | | Gastroenterology/Hep | MD Demetrio Eduardo | | | | | atology [address] | [address] | | | | | [address] | [place] [address] | | | | | Road Mailcode: | [phone] | | | | | [address] Physicians | | | | | | Sharmila [facility] [address] | | | | | | [place], [place] | | | | | | [address] | | | | | | [phone] | | | +--------+ + + + [...]
--- OUTSIDE RECORDS SUMMARY | ~2018-11-09 | XMS | Encounter Summary ---
Demographics + + + | Address | [address] | | | [place] [address] | + + + | Home Phone [...] Providers + +------+ + | Care Recreation Specialist Name | Role | Phone | [...] | Registratio | Sara Hartley | [address] [facility] | | | | n | [facility] Mailcode: | [address] | | | | | [address] [place], [place] | [place], [place] | | | | | [address] | [address] | | | | | [phone] | [phone] | | | | | | | [...]
--- OUTSIDE RECORDS SUMMARY | ~2018-11-09 | XMS | Encounter Summary ---
Demographics + + + | Address | [address] | | | [place] [address] | + + + | Home Phone [...] Providers + +------+ + | Care Recycling Operator Name | Role | Phone | [...] | | Center [address] | [address] | from pneumonia, | | | | Mychal Kovacs Mailcode: | [address] | wants to get back on | | | | [address] for | [place], [place] | vitamins) | | | | Health and Healing, | [address] | | | | | [address] [place] [address], | [phone] | | | | | [place] [address] | | | | | | [phone] | | | +--------+ + + + [...]
--- OUTSIDE RECORDS SUMMARY | ~2018-11-09 | XMS | Encounter Summary ---
Demographics + + + | Address | [address] | | | [place] [address] | + + + | Home Phone [...] Providers + +------+ + | Care Electrical Test Engineer Name | Role | Phone [...] of this encounter Progress Notes Interface, Cook Helper Dessert In - 01/12/2005 8:09 AM PDT [id number] [facility] Date: 02/27/2004 Clinic: [facility] Subjective: The patient underwent gastric bypass surgery in November 2003 under the care of Dr. Chris Padgett here at [facility]. She has been doing well after [...] been scheduled through the Sleep Clinic in [place]. Medications 1. Ranitidine 150 mg p.o. b.i.d. [...] months. Issac Meeks M.D. MONIQUE / SHARIF [id number] / [id number] / [id number] / cc: Joanna Arshad M.D. [address] [facility] [place] [address] documented i n this encounter Plan of Treatment Not on filedocumented as of this encounter Visit Diagnoses Not on filedocumented in this encounter"
--- OUTSIDE RECORDS SUMMARY | ~2018-11-09 | XMS | Encounter Summary ---
Demographics + + + | Address | [address] | | | [place] [address] [...] Providers + +------+ + | Care Stave Block Roller Name | Role | Phone | [...] as of this encounter Progress Notes Interface, Shuttle Repairer In - 01/12/2005 9:01 AM PDT [id number] [facility] Date: 05/20/2004 Clinic: Morbid [...] Surgery Chris Padgett M.D. MS / HS [id number] / [id number] / [id number] / [id number] documented i n this encounter Plan of Treatment Not on filedocumented as of this encounter Visit Diagnoses Not on filedocumented in this encounter"
--- OUTSIDE RECORDS SUMMARY | ~2018-11-09 | XMS | Encounter Summary ---
Demographics + + + | Address | [address] | | | [place] [address] | + + + | Home Phone [...] + +------+ + | Care Senior Lead Java Developer Name | Role | Phone [...]
--- OUTSIDE RECORDS SUMMARY | ~2018-11-09 | XMS | Encounter Summary ---
Demographics + + + | Address | [address] | | | [place] [address] | + + + | Home Phone [...] Team Providers + +------+ + | Care Pulpwood Contractor Name | Role | Phone | [...] Mychal Kovacs | | | | | [place] [facility] | [place], [place] | | | | | [place] [address] | [address] | | | | | [facility] | [phone] | | | | | Road Physicians | | | | | | [facility] | | | | | | Pavilion [place], | | | | | | [place] [address] | | | | | | [phone] | | | +--------+--------+ + + + [...]
--- OUTSIDE RECORDS SUMMARY | ~2018-11-09 | XMS | Encounter Summary ---
Demographics + + + | Address | [address] | | | [place] [address] | + + + | Home Phone [...] Providers + +------+ + | Care In Processing Instructor Name | Role | Phone | [...] [address] | | | | | | [place], [place] | | | | | | [address] | | | | | | [phone] | | | +--------+ + + + [...]
--- OUTSIDE RECORDS SUMMARY | ~2018-11-09 | XMS | Encounter Summary ---
Demographics + + + | Address | [address] | | | [place] [address] | + + + | Home Phone [...] Providers + +------+ + | Care Instructional Developer Name | Role | Phone | [...] | | | [facility] | [place], [place] | Bypass Surgery November | | | | [facility] [address] | [address] | 2003; | | | | [address] | [phone] | Hypothyroidism; | | | | Road Physicians | | Essential | | | | [facility] | | hypertension 401.9; | | | | [facility] [place], | | Iron Deficiency | | | | [place] [address] | | | | | | [phone] | | | +--------+---------+ + + + [...] Tramadol Morphine IM ( only in [facility]) made gut pain worse 08/27/06: Trial of [...] 300 mg) by oral route once daily jzlyefwzxb-dpexvqwvsswct-dtsdtthm (FIORICET) 50-325-40 mg Oral Tablet take 2 [...]
--- OUTSIDE RECORDS SUMMARY | ~2018-11-09 | XMS | Encounter Summary ---
Demographics + + + | Address | [address] | | | [place] [address] | + + + | Home Phone [...] + +------+ + | Care Manager Of Maintenance Name | Role | Phone | [...] | | | | | not | [address] | [address] | | | | | elsewhere | [place], [place] | [place], [place] | | | | | classified | [address] | [address] | | | | | Procedures | | Phone: | | | | | [place] | | [phone] | | | | | PSYCHOTHERPY | | Fax: | | | | | , OFFICE | | [phone] | | | | | (69-68) | | | +--------+--------+ + + + + Encounter Details +--------+---------+ + + + | Date | Type | Department | Care Team | Description | +--------+---------+ + + + | 07/15/ | Office | [facility] Center at [facility] | Lukasz Charles, | Major Depressive | | 2006 | Visit | 15th Floor [address] | PhD [address] | Disorder, Recurrent | | | | [address] Mail | Ave [place], [place] | Episode, Moderate | | | | Code: [facility] Center | [address] | ([facility]); Cervical | | | | for Health and | [phone] | Spondylosis without | | | | Healing, 15th Floor | | Myelopathy; Migraine | | | | [place], [place] | | Headache; | | | | [address] | | Adjustment Disorder | | | | [phone] | | with Anxiety | +--------+---------+ + [...] She appears to have good insight. Diagnosis: [place] I: 1. (296.32) Major depressive disorder, recurrent, moderate. 2. (309.24) Adjustment disorder with anxiety. 3. 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 [place] II: Deferred [place] III: abdominal pain, migraine headache, low back pain. [place] IV: low finances [place] V: GAF 50 Plan: Return in 2 weeks. Check relaxation and activity. Check mood. Continue cognitive/behavio ral therapy. Total time spent with patient was approximately 50 minutes. LUKASZ CHARLES PHD [facility], 4th [place] [address] [facility] Plan of Treatment + + [...] | | | ([facility]) Cervical | | | | | | Spondylosis without | | | | | | Myelopathy Migraine | | | | | | Headache | | | | | | Adjustment Disorder | | | | | | with Anxiety | | + + +--------+ + + | [place] BIOFEEDBACK | Procedures | Routin | Cervical [...]
--- OUTSIDE RECORDS SUMMARY | ~2018-11-09 | XMS | Encounter Summary ---
Demographics + + + | Address | [address] | | | [place] [address] | + + + | Home Phone [...] Providers + +------+ + | Care Bottom Cager Name | Role | Phone | + [...] [address] | | | | | [facility] | [place], [place] | | | | | [address]arm[address] | [address] | | | | | [address] | [phone] | | | | | Road Physicians | | | | | | [facility] | | | | | | Pavilion [place], | | | | | | [place] [address] | | | | | | [phone] | | | +--------+ + + + [...]
--- OUTSIDE RECORDS SUMMARY | ~2018-11-09 | XMS | Clinical Summary ---
Demographics + + + | Address | [address] | | | [place] [address] | + + + | Home Phone [...] | Organization | [facility] | | | and Jairana [...] Providers + +------+ + | Care Machine Bander And Cellophaner Name | Role | Phone | [...] + + + + + + | Ioxgardmqa-Mcqf-Hnux | Hives, Rash | Low | 03/25/20 [...] | | | | | | [address] [place] [address] [place] | | | | | | [place] [address] | | | | | | [phone] | | | | | | | [...] +--------+ +---------+--------+ | MEDICARE | MEDICA | [id number] | 07/16/19 | [phone] | | Medica | | | RE | | 03-Pre | 5 | | re | | | PART A | | sent | | | | | | AND B | | | | | | + +--------+ +--------+ +---------+--------+ | [employer] | MODA | [id number] | | [phone] | | Medica | [...] | | al/Fam | | 1960 | [id number] | [place] [address] | | | bijan | | | 3 (Home) | | + +--------+ +--------+ + + Advance Directives Patient has advance care planning documents on file. For more information, please contact:[facility] [place] [address]
--- OUTSIDE RECORDS SUMMARY | ~2018-11-09 | XMS | Encounter Summary ---
Demographics + + + | Address | [address] | | | [place] [address] | + + + | Home Phone [...] Team Providers + +------+ + | Care Apricot Washer Name | Role | Phone | [...] Jayce | | | | | at [facility] | [facility] | | | | | [address] | [place] [address] | | | | | [facility] | | | | | | Mailcode: OP12B Jayce | | | | | | Naeem De La Rosa | | | | | | [place], | | | | | | [place] [address] | | | | | | [phone] | | | +--------+ + + + [...]
--- OUTSIDE RECORDS SUMMARY | ~2018-11-09 | XMS | Encounter Summary ---
Demographics + + + | Address | [address] | | | [place] [address] | + + + | Home Phone [...] Providers + +------+ + | Care Wire Machine Operator Name | Role | Phone [...] of this encounter Progress Notes Interface, Physical Design Engineer In - 01/12/2005 6:46 AM [facility] Date: 11/27/2003 Clinic: Surgery Clinic Subjective: This patient of Dr. Chris Padgett walks into clinic today to discuss her laparoscopic incisions and a lesion on her lower back. She was discharged from [facility] approximately 36 hours ago following [...] discharge and would like to proceed to [place], where her home is. She agrees to [...] additional questions. Liliya Kirkpatrick. NELLY / SHARIF [id number] / [id number] / [id number] / [id number] Tdocumented in this encounter Plan of Treatment Not on filedocumented as of this encounter Visit Diagnoses Not on filedocumented in this encounter"
--- OUTSIDE RECORDS SUMMARY | ~2018-11-09 | XMS | Encounter Summary ---
Demographics + + + | Address | [address] | | | [place] [address] | + + + | Home Phone [...] | | | [address] | [place], [place] | | | | | Health and Healing, | [address] | | | | | 6th [facility], | [phone] | | | | | [place] [address] | | | | | | [phone] | | | +--------+ + + + [...]
--- OUTSIDE RECORDS SUMMARY | ~2018-11-09 | XMS | Encounter Summary ---
Demographics + + + | Address | [address] | | | [place] [address] | + + + | Home Phone [...] Team Providers + +------+ + | Care Mottler Machine Feeder Name | Role | Phone | + +------+ + PCP | Unavailable | + +------+ + Encounter Details +--------+ + + + + | Date | Type | Department | Care Team | Description | +--------+ + + + + | 12/21/ | Results | Rheumatology | Caitlin Rivera, | | | 2003 | Only | [place] [address] | SPLUNK ARCHITECT | | | | | Jayce [address]rae | | | | | | Road Mailcode: OPC5 | | | | | | Outpatient Clinic | | | | | | Zach [facility] | | | | | | [place] [address] | | | | | | [phone] | | | +--------+ + + + [...] by [facility] | | | [facility]. | | + + + + + + + + | Performing | Address | City/State/Zipcode | Phone Number | | Organization | | | | + + + + + | [facility] | [address] [facility] | [place] [address] | | | LABORATORY | | | [...] | + + + + + | [facility] | [address] | [place] [address] | | | LABORATORY | | | [...] | | | | | performed at [place] | | | | | | [place] [...] + + + | [facility] | [address] | [place] [address] | | | LABORATORY | | | | + + + + + documented in this encounter Visit Diagnoses Not on filedocumented in this encounter"
--- OUTSIDE RECORDS SUMMARY | ~2018-11-09 | XMS | Encounter Summary ---
Demographics + + + | Address | [address] | | | [place] [address] | + + + | Home Phone [...] Providers + +------+ + | Care Supervisor Salvage Name | Role | Phone | [...] [address] | | | | | [facility] | [place], [place] | | | | | [place] [address] | [address] | | | | | Jayce Mcrae | [phone] | | | | | Road Physicians | | | | | | [facility] | | | | | | [facility] [place], | | | | | | [place] [address] | | | | | | [phone] | | | +--------+ + + + [...]
--- OUTSIDE RECORDS SUMMARY | ~2018-11-09 | XMS | Encounter Summary ---
Demographics + + + | Address | [address] | | | [place] [address] | + + + | Home Phone [...] Providers + +------+ + | Care Store Host Name | Role | Phone | [...] + + | 04/09/ | Telephone | [facility] Division of | Carlos Arreola, | Erroneous Encounter | | 2005 | | Gastroenterology/Hep | MD Demetrio Eduardo | - Disregard | | | | atology [address] | (duplicate call; see | | | | [address] | [place] [address] | other encounter ) | | | | Road Mailcode: | [phone] | | | | | [address] Physicians | | | | | | [facility] [address] | | | | | | [place], [place] | | | | | | [address] | | | | | | [phone] | | | +--------+ + + + [...]
--- OUTSIDE RECORDS SUMMARY | ~2018-11-09 | XMS | Encounter Summary ---
Demographics + + + | Address | [address] | | | [place] [address] | + + + | Home Phone [...] Providers + +------+ + | Care Digital Media Director Name | Role | Phone | [...] [address] | | | | | | [place], [place] | | | | | | [address] | | | | | | [phone] | | | +--------+--------+ + + + [...]
--- OUTSIDE RECORDS SUMMARY | ~2018-11-09 | XMS | Encounter Summary ---
Demographics + + + | Address | [address] | | | [place] [address] | + + + | Home Phone [...] Providers + +------+ + | Care Metal Moulder'S Assistant Name | Role | Phone | [...] as of this encounter Progress Notes Interface, Supply Tech In - 01/12/2005 10:09 AM PDT [id number] [facility] Date: 12/11/2004 Clinic: Telephone [...] sent to Ms. Meehan' home address at [facility] [address] [address]. The address was confirmed with Ms. Meehan prior to sending. Ms. Meehan has a followup appointment in Dr. Padgett's clinic on December 19, 2004. Nathalia Richard R.N., B.S.N. Liliya Kirkpatrick. / [id number] / [id number] / [id number] / Electronically signed by Nuris Chapman 12-20-2004 05:05:06 PM docushazia i n this encounter Plan of Treatment Not on filedocumented as of this encounter Visit Diagnoses Not on filedocumented in this encounter"
--- OUTSIDE RECORDS SUMMARY | ~2018-11-09 | XMS | Encounter Summary ---
Demographics + + + | Address | [address] | | | [place] [address] | + + + | Home Phone [...] | Organization | [facility] | [...] Providers + +------+ + | Care Freight Team Associate Name | Role | Phone | [...] + + | 08/23/ | Telephone | [facility] | Alanis, | Medication Follow-up | | 2019 | | [address] | MD Petrona | (Prior | | | | [place]anan [place] | [address] [place] [address] | Authorization | | | | [place] [address] | [place] [address] | needed) | | | | [phone] | [phone] | | | | | | | [...] | | | | | [place] [address] | | | | | | [phone] | | | | | | | | +--------+---------+ + + + documented as of this encounter Visit Diagnoses Not on filedocumented in this encounter"
--- OUTSIDE RECORDS SUMMARY | ~2018-11-09 | XMS | Encounter Summary ---
Demographics + + + | Address | [address] | | | [place] [address] | + + + | Home Phone [...] | Organization | [facility] | | | and [...] Providers + +------+ + | Care Medical Imaging Tech Name | Role | Phone | + +------+ + | Petrona Thapa | PCP | | | MD | | | + +------+ + Encounter Details +--------+ + + + + | Date | Type | Department | Care Team | Description | +--------+ + + + + | 09/01/ | Abstract | [facility] | Provider, | | | 2019 | | GASTROENTEROLOGY | MD Colin [address] | | | | | [address] [facility] | Sulma Boyd | | | | | [address] [place] [place] | [place] [address] | | | | | [address] | | | | | | [phone] | | | +--------+ + + + [...] | | [facility] [address] | | | | | | [place] [address] | | | | | | [phone] | | | | | | | | +--------+---------+ + + + documented as of this encounter Visit Diagnoses Not on filedocumented in this encounter"
--- OUTSIDE RECORDS SUMMARY | ~2018-11-09 | XMS | Encounter Summary ---
Demographics + + + | Address | [address] | | | [place] [address] | + + + | Home Phone [...] [address] | | | | | [facility] | Bethanie [place], [place] | | | | | [address] | [address] | | | | | Mail Code: CH15P | [phone] | | | | | [facility] | | | | | | and , | | | | | | Floor [place], [place] | | | | | | [address] | | | | | | [phone] | | | +--------+ + + + [...]
--- OUTSIDE RECORDS SUMMARY | ~2018-11-09 | XMS | Encounter Summary ---
Demographics + + + | Address | [address] | | | [place] [address] | + + + | Home Phone [...] Providers + +------+ + | Care Almond Roaster Name | Role | Phone | [...]
--- OUTSIDE RECORDS SUMMARY | ~2018-11-09 | XMS | Encounter Summary ---
Demographics + + + | Address | [address] | | | [place] [address] | + + + | Home Phone [...] Team Providers + +------+ + | Care Flitch Hanger Name | Role | Phone | + +------+ + PCP | Unavailable | + +------+ + Encounter Details +--------+ + + + + | Date | Type | Department | Care Team | Description | +--------+ + + + + | 01/22/ | Abstract | General Surgery | Chris Padgett, | | | 2004 | | [address] | [address] [facility] | | | | | [facility] | [facility] | | | | | Mailcode: L223A | [place], [place] | | | | | Physicians Sharmila | [address] | | | | | [address] [place], | [phone] | | | | | [place] [address] | | | | | | [phone] | | | +--------+ + + + [...]
--- OUTSIDE RECORDS SUMMARY | ~2018-11-09 | XMS | Encounter Summary ---
Demographics + + + | Address | [address] | | | [place] [address] | + + + | Home Phone [...] | Organization | [facility] | | | and Jairana [...] Attempt | | 2019 | | MEDICINE [address] [place] [address] | MD Petrona | | | | | [facility] | [address] [place] [address] | | | | | [place] [address] | [place] [address] | | | | | [phone] | [phone] | | | | | | | [...] | | | | | [place] [address] | | | | | | [phone] | | | | | | | | +--------+---------+ + + + documented as of this encounter Visit Diagnoses Not on filedocumented in this encounter"
--- OUTSIDE RECORDS SUMMARY | ~2018-11-09 | XMS | Encounter Summary ---
Demographics + + + | Address | [address] | | | [place] [address] | + + + | Home Phone [...] | | | | [address] MAL[address] | [facility] | | | | | | [place], [place] | [facility] | | | | | | [address] | [id number] | | | | | | | [place], [place] | | | | | | | [address] | | | | | | | Phone: | | | | | | | [phone] | | | | | | | Fax: | | | | | | | [phone] | +--------+--------+ + + + + Encounter Details +--------+---------+ + + + | Date | Type | Department | Care Team | Description | +--------+---------+ + + + | 06/23/ | Office | [facility] Comprehensive | Adrien Smith, | Fibromyalgia | | 2013 | Visit | Pain Center at | MD [address] [facility] | syndrome 729.1 | | | | [facility] | [facility] [address] | (Primary Dx); LBP | | | | [address] | [place], [place] | (low back pain); | | | | Mail Code: CH15P | [address] | Chronic Bilateral | | | | [facility] | [phone] | Shoulder Pain; Post | | | | and | | laminectomy | | | | Floor [place], [place] | | syndrome; Chronic | | | | [address] | | migraine | | | | [phone] | | | +--------+---------+ + + + [...] of a patient with fibromyalgia, the [facility] Fibromyalgia clinic suggests laboratory screening to i [...] suggests that fibromyalgia patients may have reduced PC TECH opioid receptors (Reji solomon RE, et al. Decreased central mu-opioid receptor availability in fibromyalgia. J Neurosci . 27(37):90161-5, 2006Feb 24.) and there are no controlled [...] documented in our notes. ADRIEN SMITH MD Agile Test Lead, [facility] Brood Hatchery Manager, Pain Medicine Professor, Anesthesiology & Perioperative Medicine Brandon Phipps Md - 06/23/2013 2:21 PM PST [facility] Return Visit with Dr. Adrien [...] as she has worked with [facility]. This visit can be in [...] before her lumbar surgeries and recently in [place]. She has short-term relief from thes e treatments. I would like her to return to see Dr. Adrien Smith to discuss these treatment options. Consult to [facility] physical therapy: A supervised physical therapy evaluation [...] Overview Note: Surgery 05/15/08 Dr Ricky Garnett [facility] karlos to get operative reports [...] and a pain drawing which I reviewed. [facility] Brief Pain Inventory: (ten= worst [...] right knee Lumbar fusion 05/2008, ' & L5-V9tzgqxf with bone spur removals Appendectomy Cholecystectomy section [...] Hives Mainly in the legs Clindamycin Codeine Vgtxqft-Zifxxztuti-Pzd-Caff Balance problems Fioricet W/Codeine (Swugdnslqu-Wqwxgmxdoi-Hpj-Cod) Keflex (Cephalexin) Morphine IM ( only in [facility]) made gut pain worse 08/27/06: Trial of oral MSIR caused leg swelling Penicillins Sulfa (Sulfonamide Antibiotics) Tramadol Ms. Meehan reports no side effects. The Review of Systems provided by Ms. Meehan and documented by the RELATIONSHIP MANAGEMENT LEAD was reviewed. Austyn tional comments: 1. BONES, [...] of a patient with fibromyalgia, the [facility] Fibromyalgia clinic suggests laboratory screening to i [...] suggests that fibromyalgia patients may have reduced PC TECH opioid receptors (Xavi FRANK, et al. Decreased central mu-opioid receptor availability in fib romyalgia. J Neurosci. 27(37):08492-3, 2006Feb 24.) and there are no controlled [...]
--- OUTSIDE RECORDS SUMMARY | ~2018-11-09 | XMS | Encounter Summary ---
Demographics + + + | Address | [address] | | | [place] [address] | + + + | Home Phone [...] + | Organization | [facility] | | [...] Team Providers + +------+ + | Care Pouncer Name | Role | Phone | + [...] Pain | | 2019 | | MEDICINE [address] [place] [address] | MD Petrona | | | | | [facility] | [address] [place] [address] | | | | | [place] [address] | [place] [address] | | | | | [phone] | [phone] | | | | | | | [...] | | | | | [place] [address] | | | | | | [phone] | | | | | | | [...]
--- OUTSIDE RECORDS SUMMARY | ~2018-11-09 | XMS | Encounter Summary ---
Demographics + + + | Address | [address] | | | [place] [address] | + + + | Home Phone [...] Providers + +------+ + | Care Engineering Supervisor Name | Role | Phone | [...] | | | | Clinical Nutrition | [place], [place] | | | | | [address] | [address] | | | | | [facility] | [phone] | | | | | Mailcode: OPC5 | | | | | | Outpatient Clinic | | | | | | [facility] | | | | | | [place] [address] | | | | | | [phone] | | | +--------+ + + + [...] + + + | [facility] | [address] | [place] [address] | | | LABORATORY | | | [...] + + + | [facility] | [address] | [place] [address] | | | LABORATORY | | | [...] Blood Test performed by | | | [facility]. | | + + + + + + + + | Performing | Address | City/State/Zipcode | Phone Number | | Organization | | | | + + + + + | [facility] | [address] | [place] [address] | | | LABORATORY | | | | + + + + + documented in this encounter Visit Diagnoses Not on filedocumented in this encounter"
--- OUTSIDE RECORDS SUMMARY | ~2018-11-09 | XMS | Encounter Summary ---
Demographics + + + | Address | [address] | | | [place] [address] | + + + | Home Phone [...] Providers + +------+ + | Care Last Picker Name | Role | Phone | [...] Hospital | | | | | | [address] | | | | | | Mail Code: CH15P | | | | | | [facility] | | | | | | and Healing, | | | | | | Floor [place], [place] | | | | | | [address] | | | | | | [phone] | | | +--------+ + + + [...]
--- OUTSIDE RECORDS SUMMARY | ~2018-11-09 | XMS | Encounter Summary ---
[...] Providers + +------+ + | Care Merchandise Director Name | Role | Phone | + +------+ + PCP | Unavailable | + +------+ + Encounter Details +--------+ + + + + | Date | Type | Department | Care Team | Description | +--------+ + + + + | 12/21/ | Results | Rheumatology | Caitlin Rivera, | | | 2003 | Only | [place] [address] | [address] | | | | | [address] | | | | | | Road Mailcode: OPC5 | | | | | | Outpatient Clinic | | | | | | [facility] | | | | | | [place] [address] | | | | | | [phone] | | | +--------+ + + + [...] Iron and TIBC, Serum Test performed by [facility] | | | [facility]. | | + + + + + + + + | Performing | Address | City/State/Zipcode | Phone Number | | Organization | | | | + + + + + | [facility] | [address] [facility] | [place] [address] | | | LABORATORY | | | [...] | + + + + + | [facility] | [address] | [place] [address] | | | LABORATORY | | | [...] | | | | | performed at [facility] | | | | | | [facility] | | | | | | Laboratory | | | | + + + + + + + + | Specimen | + + | | + + + + + + + | Performing | Address | City/State/Zipcode | Phone Number | | Organization | | | | + + + + + | [facility] | [address] | [place] [address] | | | LABORATORY | | | | + + + + + documented in this encounter Visit Diagnoses Not on filedocumented in this encounter"
--- OUTSIDE RECORDS SUMMARY | ~2018-11-09 | XMS | Encounter Summary ---
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 Diagnosis: Maringouin I: 1. (296.32) Major depressive disorder, recurrent, moderate. 2. (309.24) Adjustment disorder with anxiety. 3. 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 Maringouin II: Deferred Maringouin III: abdominal pain, migraine headache, low back pain. Maringouin IV: low finances Maringouin V: GAF 50 Plan: Return in 2 weeks. Check pacing, relaxation, activity, distraction. Check managing Pain.. . book. Continue cognitive/behavioral therapy. Total time spent with patient was approximately 45 minutes. LUKASZ CHARLES [facility] [address] [place] [address] And [facility] [address] [place] [address] documented in this encount er Plan of [...]
--- OUTSIDE RECORDS SUMMARY | ~2018-11-09 | XMS | Encounter Summary ---
Demographics + + + | Address | [address] | | | [place] [address] | + + + | Home Phone [...] Providers + +------+ + | Care Mining Teacher Name | Role | Phone | [...] as of this encounter Progress Notes Interface, Earthmoving Labourer In - 01/11/2005 5:17 PM PDT [place] [facility] [address] [place] [address] or June 26, 2003 Pedrito Gutierrez M.D. [address] [place] [address] RE: BELINDA MEEHAN MR #: [id number] Dear Dr. Gutierrez: I had the pleasure [...] Sincerely, Sesar Nash M.D. NURIA / SHARIF [id number] / [id number] / [id number] / [id number] cc: Kelley Alegre [address] [place] [address] FAX: [phone] signed by Interface, Earthmoving Labourer In at 01/11/2005 5:17 PM PDTdocumented in this encounter Plan of Treatment Not on filedocumented as of this encounter Visit Diagnoses Not on filedocumented in this encounter"
--- OUTSIDE RECORDS SUMMARY | ~2018-11-09 | XMS | Encounter Summary ---
Demographics + + + | Address | [address] | | | [place] [address] | + + + | Home Phone [...] Providers + +------+ + | Care Cotton Broker Name | Role | Phone | [...] of this encounter Progress Notes Interface, Certified Medical Transcriptionist In - 01/13/2005 9:03 AM PDT [id number] [facility] Date: 01/02/2005 Clinic: Endocrinology [...] months. Beto Meeks M.D. PD / HS [id number] / [id number] / [id number] / [id number] cc: Chris Padgett M.D. documented i n this encounter Plan of Treatment Not on filedocumented as of this encounter Visit Diagnoses Not on filedocumented in this encounter"
--- OUTSIDE RECORDS SUMMARY | ~2018-11-09 | XMS | Encounter Summary ---
[...] Team Providers + +------+ + | Care Deburrer Strip Name | Role | Phone | + [...] Naeem Mcrae | | | | | [address] | [place], [place] | | | | | Health and Healing, | [address] | | | | | [address] [facility], | [phone] | | | | | [place] [address] | | | | | | [phone] | | | +--------+ + + + [...]
--- OUTSIDE RECORDS SUMMARY | ~2018-11-09 | XMS | Encounter Summary ---
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 11/11/2006 Belinda Meehna is a 46 y.o. female [facility] [...] weeks. 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 Fentanyl patch 25mcg/hr Q72hr 3. Orange 10/325 NTE 4 per day 4 Continue [...] weeks or sooner if needed. DELFINA MOLINA [employer] [facility] Comprehensive Pain Center Mail code CH 4P [facility] and [facility] [address] [facility] [address] Tasha Can - 11/11/2006 9:29 AM PDTCMA [...]
--- OUTSIDE RECORDS SUMMARY | ~2018-11-09 | XMS | Encounter Summary ---
Demographics + + + | Address | [address] | | | [place] [address] | + + + | Home Phone [...] Providers + +------+ + | Care Radio Electronics Technician Name | Role | Phone | [...]
--- OUTSIDE RECORDS SUMMARY | ~2018-11-09 | XMS | Encounter Summary ---
Demographics + + + | Address | [address] | | | [place] [address] | + + + | Home Phone [...] Providers + +------+ + | Care Building And Construction Manager Name | Role | Phone [...] as of this encounter Discharge Summaries Interface, R Developer In - 01/12/2005 10:09 AM PDT [id number] GEOVANNI Barnes Admission Date: 12/06/2004 Discharge Date: [...] her incision looked clear, dry, and intact. [place] were in place. She had some moderate [...] Sree Carrillo M.D. Chris Padgett M.D. / [id number] / [id number] / [id number] / [id number] Electronically signed by Chris Padgett 12-31-2004 03:03:21 PM documented i n this encounter Plan of Treatment Not on filedocumented as of this encounter Visit Diagnoses Not on filedocumented in this encounter"
--- OUTSIDE RECORDS SUMMARY | ~2018-11-09 | XMS | Encounter Summary ---
Demographics + + + | Address | [address] | | | [place] [address] | + + + | Home Phone [...] Providers + +------+ + | Care Public Works Inspector Name | Role | Phone | [...] ANP | | | | | [facility] | | | | | | [address] | | | | | | Mail Code: CH15P | | | | | | [facility] | | | | | | and Healing, | | | | | | Floor [place], [place] | | | | | | [address] | | | | | | [phone] | | | +--------+ + + + [...]
--- OUTSIDE RECORDS SUMMARY | ~2018-11-09 | XMS | Encounter Summary ---
Demographics + + + | Address | [address] | | | [place] [address] | + + + | Home Phone [...] + +------+ + | Care Aircraft Engine Technician Name | Role | Phone [...] of this encounter Progress Notes Interface, Tank Truck Mechanic In - 10/30/2005 2:06 AM PDT [id number] GEOVANNI Barnes [id number] Clinic Date: 10/23/2005 Clinic: Ms. Meehan comes in today for followup of her abdominal CT. The CT is normal. We will follow her for abdominal pain. I will see her again in 3 months. If she has exacerbation, she can come earlier. I also gave her 30 tablets of 5 mg oxycodone for the pain. Chris Padgett M.D. CD / [id number] / [id number] / [id number] / Electronically signed by Chris Padgett 10-29-2005 10:10:39 AM documented i n this encounter Plan of Treatment Not on filedocumented as of this encounter Visit Diagnoses Not on filedocumented in this encounter"
--- OUTSIDE RECORDS SUMMARY | ~2018-11-09 | XMS | Encounter Summary ---
Demographics + + + | Address | [address] | | | [place] [address] | + + + | Home Phone [...] Providers + +------+ + | Care Field Recruiter Name | Role | Phone | [...] | Visit | Rheumatology [address] | INSPECTOR BALANCE WHEEL MOTION | Fibromyalgia; | | | | [address] | | Fibromyalgia | | | | Road Mailcode: OPC5 | | | | | | Outpatient Clinic | | | | | | [facility], | | | | | | [place] [address] | | | | | | [phone] | | | +--------+---------+ + + + [...] however and she [facility]. Some of this is [...] 4-5/5 for all major deltoids, biceps, triceps. Ekg Tech slightly weak. Tone is normal. There is [...] cervical spine MRI to be done at [facility]. A few of these patients have [...]
--- OUTSIDE RECORDS SUMMARY | ~2018-11-09 | XMS | Encounter Summary ---
Demographics + + + | Address | [address] | | | [place] [address] | + + + | Home Phone [...] Providers + +------+ + | Care Vehicle Painter Name | Role | Phone | + +------+ + PCP | Unavailable | + +------+ + Encounter Details +--------+ + + + + | Date | Type | Department | Care Team | Description | +--------+ + + + + | 08/09/ | Results | | Other, Faculty | | | 2002 | Only | | [phone] | | +--------+ + + + + [...] DEPARTMENT OF | [address] | [place] [address] | | | PATHOLOGY | [address] | | | + + + + + | [place] DEPARTMENT OF | [address] | [place] [address] | | | PATHOLOGY | [address] | | | + + + + + documented in this encounter Visit Diagnoses Not on filedocumented in this encounter"
--- OUTSIDE RECORDS SUMMARY | ~2018-11-09 | XMS | Encounter Summary ---
Demographics + + + | Address | [address] | | | [place] [address] | + + + | Home Phone [...] Providers + +------+ + | Care Computer Salesperson Retail Name | Role | Phone | [...] | | 2003 | anned | [address] [facility] | | | | | | [facility] | | | | | | [place], [place] | | | | | | [address] | | | +--------+ + + + [...]
--- OUTSIDE RECORDS SUMMARY | ~2018-11-09 | XMS | Encounter Summary ---
Demographics + + + | Address | [address] | | | [place] [address] | + + + | Home Phone [...] Providers + +------+ + | Care Cast Iron Dipper Name | Role | Phone | [...] + + | 12/21/ | Office | [facility] Comprehensive | Delfina Molina, | Left Knee [...] Hip | | | | [facility] | | Region Pain; | | | | and Healing, | | Spondylosis with | | | | Floor [place], [place] | | Myelopathy, Lumbar | | | | [address] | | Region; Herniated | | | | [phone] | | Lumbar | | | | [...] Simons. We reviewed materials risk notice and [facility] opioid agreement. A ll questions [...] management and reduce opioid need. DELFINA MOLINA [facility] Comprehensive Pain Center Mail code CH 4P [facility] Health and [facility] [address] [facility] [address] Ailyn Foster 12/22/19 12:51 [...]
--- OUTSIDE RECORDS SUMMARY | ~2018-11-09 | XMS | Encounter Summary ---
Demographics + + + | Address | [address] | | | [place] [address] | + + + | Home Phone [...] Providers + +------+ + | Care Inside Technical Sales Representative Name | Role | Phone [...] + | 07/30/ | Office | [facility] Comprehensive | Delfina Molina, | Cervical Spondylosis | | 2006 | Visit | Pain Center at | ANP | without Myelopathy | | | [facility] | | (Primary Dx); Right | | | | [address] | | shoulder rotator | | | | Mail Code: CH15P | | cuff strain; | | | | [place] [facility] | | Spondylosis with | | | | and Healing, | | Myelopathy, Lumbar | | | | Floor [place], [place] | | Region; Herniated | | | | [address] | | Lumbar | | | | [phone] | | Intervertebral Disc | | | [...] these have helped improve function but not alf, and she reports sleeping poorly due to pain disru ption since prior visit. Since prior visit she had a 06/24/06: Bone density study and her T-Score -1.2 lumbar spine a nd -2.2 proximal femur. Collection Information Collection Date Collection Time Resulting Agency 03/10/2006 2:42 PM [facility] DEPARTMENT OF PATHOLOGY Component Results Component Value Range Status CALCIUM (LAB) 9.5 8.5 - 10.5 mg/dL Fin SPINE LUMBAR 2 VIEWS AT 1421 HOURS LUMBAR SPINE, 10/01/05 HISTORY: Back pain. FINDINGS: AP and lateral views of the lumbar spine show five ucs-mjj-afkwrmi lumbar vertebrae in normal alignment with no [...] in reviewing of chart, imaging and career technical counselor ing/coordindation of care. 1. For the [...] Please indicate and fax your response to [phone]. I called and left a message on Dr Jarrett Evans general voice mail requesting he call me to discuss prescribing and patient care. DELFINA MOLINA [facility] Pain Center Mail code CH 4P [facility] Health and [facility] [address] [facility] [address] Tasha Michelle - 07/30/2006 7:35 [...]
--- OUTSIDE RECORDS SUMMARY | ~2018-11-09 | XMS | Encounter Summary ---
Demographics + + + | Address | [address] | | | [place] [address] | + + + | Home Phone [...] Providers + +------+ + | Care Mud Worker Name | Role | Phone | [...] Closed | | Physical | Diagnoses | Miracle, | Fili Pt Rn Surgical | | | | Therapy | Muscle | NIHARIKA Jean | Chh [address] | | | | | strain Neck | [address] | | | | | pain | [address] | Mailcode: | | | | | Fibromyalgia | [place], [place] | CH3P Center | | | | | Radicular | [address] | for Health | | | | | pain in left | | and Healing | | | | | arm | | [place], [place] | | | | | Procedures | | [address] | | | | | PHYSICAL | | Phone: | | | | | THERAPY | | [phone] | | | | | REFERRAL | [...] + + | 08/22/ | Office | [facility] Comprehensive | Delfina Lambert, | Muscle Strain hips; | | 2008 | Visit | Pain Center at | ANP | Fibromyalgia; Neck | | | | [facility] | | Pain; Radicular Pain | | | | [address] | | in Left Arm; | | | | Mail Code: CH15P | | Dizziness; Black | | | | [facility] | | Out; Falling | | | | and Healing, | |Falling | | | | Floor [place], [place] | | | | | | [address] | | | | | | [phone] | | | +--------+---------+ + + + [...] visit Schedule MRI of the neck at [facility] Use your TENS for the [...] has be completed, which I reviewed. [facility] Brief Pain Inventory: (ten= worst [...] appointment to see lumbar spine surgery in [place] on . Psychiatric History: depressed mood, sleep [...] 278 01/18 Paniculectomy Hx lumbar fusion 05/2008 L5-[id number] with bone spur removals Family History Problem [...] to get the MRI results befor planning [facility] care. Belinda was compliant with [...] COMPREHENSIVE PAIN CENTER Mail code CH 4P [facility] [address] [place] [address] Ailyn Foster - 03/2009 9:30 AM [...] | | | | | vertebral artery | | | | | | flow. Dizziness | | | | | | andvertigo with cervical | | | | | [...] | | | | | | signal | | | | | | abnormality. At the | | | | | | C3-C4 level, thereis | | | | | | right uncovertebral | | | | | | osteophyte [...] | | | | | | canal | | | | | | narrowing. Degenerati | | | | | | vechanges appear stable | | | | | | compared to the prior | | | | | | study.CSF flow study | | | | | | demonstrates normal | | | | | | biphasic flow at the | | | | | | level of theforamen | | | | | | magnum in both neutral | | | | | | and extension | | | | | | positions. The | | | | | | flowwithin the vertebral | | | | | | arteries appears normal | | | | | | and symmetric in | | | | | | bothneutral and | | | | | | extension | | | | | | [...] | | | | | | spinal | | | | | | canalnarrowing.2. [place] | | | | | | e CSF flow study | | | | [...] | | | | | | extension | | | | | | positions. If more | | | | | [...] SCHROEDER | | | | | | BRADLEYUS | | | | | | PRELIMINARY [...]
--- OUTSIDE RECORDS SUMMARY | ~2018-11-09 | XMS | Encounter Summary ---
Demographics + + + | Address | [address] | | | [place] [address] | + + + | Home Phone [...] Providers + +------+ + | Care Security Orderly Name | Role | Phone | [...] | Pain | Diagnoses | Miracle, | Morgan, | | | | Management | LBP (low | NIHARIKA Jean | Lukasz Rhodes, PhD | | | | | back pain) | [address] | | | | | DJD | [address] | [address] | | | | | (degenerativ | [place], [place] | [place] | | | | | e joint | [address] | [address] | | | | | disease) of | | Phone: | | | | | knee Knee | | [phone] | | | | | pain Major | | Fax: | | | | | depressive | | [phone] | | | | | disorder, | [...] 04/13/ | Office | Pain Center at [facility] | Lukasz Charles, | Major Depressive | | 2007 | Visit | 15th Floor [address] | PhD [address] | Disorder, Recurrent | | | | [address] Mail | Ave [place], [place] | Episode, Mild (HCC); | | | | Code: [facility] | [address] | LBP (Low Back | | | | for Health and | [phone] | Pain); Migraine | | | | Healing, 15th Floor | | Headache; Adjustment | | | | [place], [place] | | Disorder with | | | | [address] | | Anxiety | | | | [phone] | | | +--------+---------+ + + + [...] for her surgical recovery period. Diagnosis: [place] I: 1. (296.31) Major depressive disorder, recurrent, mild. 2. (309.24) Adjustment disorder with anxiety. 3. 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 [place] II: Deferred [place] III: abdominal pain, migraine headache, low back pain. [place] IV: low finances [place] V: GAF 55-60 Plan: return with next medical follow-up appointment. Check mood, pain, relaxation, activ ity, distraction, eating. Ask about headaches, fainting, surgery. Continue cognitive/behav ioral therapy. Total time spent with patient was approximately 45 minutes. LUKASZ CHARLES PHD [facility] [address] [facility] [place] [place] [address] documented in this encount er Plan of Treatment + + +--------+ + + | Name | Type | Priori | Associated Diagnoses | Order Schedule | | | | ty | | | + + +--------+ + + | [facility] PSYCHOTHERPY, | Procedures | Routin | Major Depressive | Ordered: 04/13/2008 | | OFFICE (80-31) | | e | Disorder, Recurrent | [...]
--- OUTSIDE RECORDS SUMMARY | ~2018-11-09 | XMS | Encounter Summary ---
Demographics + + + | Address | [address] | | | [place] [address] | + + + | Home Phone [...] Providers + +------+ + | Care Rehab Nursing Tech Name | Role | Phone | [...] this encounter Progress Notes Interface, High School Library Media Specialist In - 02/19/2005 5:04 AM PDT [id number] GEOVANNI Barnes Clinic Date: 01/17/2005 Clinic: General [...] with Dr. Dwaine Larson. She has a iky-ipbl-ficpy lesion at the distal aspect of her [...] Devin German M.D. Dwaine Larson M.D. [facility] / [id number] / [id number] / [id number] / [id number] Electronically signed by Dwaine Larson 02-18-2005 09:15:31 AM documented i n this encounter Plan of Treatment Not on filedocumented as of this encounter Visit Diagnoses Not on filedocumented in this encounter
--- OUTSIDE RECORDS SUMMARY | ~2018-11-09 | XMS | Clinical Summary ---
Demographics + + + | Address | [address] | | | [place] [address] | + + + | Home Phone [...] Team Providers + +------+ + | Care Union Representative Name | Role | Phone | + +------+ + | Sulaiman Carrera MD | PP | Unavailable | + +------+ + Source Comments MARK is fully live on both [facility] and [facility] InPatient.[facility] Allergies + + + [...] + + + + + + | Vxdjtjw-Lxvcnqyphu-Y | | | 08/29/19 | Balance problems [...] | | | | | [facility] [facility]) | | | | | | [...] | imbalances, sleep apnea, neck pain, medication [id number] | + + + + + | [...] | | | | | | | [address] | | + +--------+ +--------+ + +--------+ | POSTBED STITCHER MEDICAID | POSTBED STITCHER | [id number] | | | | Medica [...] | 1960 | [phone] | [place] [address] | | | bijan | | | 3 (Home) | | + +--------+ +--------+ + + | Belinda Meehan | Medica | Self | [birth year] | [address] | | | re | | 9 | [phone] | [place] [address] | | | Recurr | | | 3 (Home) | | | | ing | | | | | + +--------+ +--------+ + + Advance Directives + + + + + | Type | Date Recorded | Patient | Explanation | | | | Buffer Machine | | + + + + + | Advance | 11/19/2004 12:00 | | ADVANCE DIRECTIVE | | Directives and | AM | | | | Living Will | | | | + + + + + | Power of | | | | | Clinical Researcher | | | | + + + [...]
--- OUTSIDE RECORDS SUMMARY | ~2018-11-09 | XMS | Encounter Summary ---
Demographics + + + | Address | [address] | | | [place] [address] | + + + | Home Phone [...] Team Providers + +------+ + | Care Creping Machine Operator Helper Name | Role | [...] | | | [facility] | [place], [place] | | | | | Health and Healing, | [address] | | | | | 6th floor [place], | [phone] | | | | | [place] [address] | | | | | | [phone] | | | +--------+ + + + [...]
--- OUTSIDE RECORDS SUMMARY | ~2018-11-09 | XMS | Encounter Summary ---
Demographics + + + | Address | [address] | | | [place] [address] | + + + | Home Phone [...] + +------+ + | Care Education Program Coordinator Name | Role | Phone [...] as of this encounter Progress Notes Interface, Fan Mail Clerk In - 01/13/2005 9:03 AM PDT [id number] GEOVANNI Barnes Clinic Date: 01/02/2005 Clinic: [facility] Subjective: Ms. Meehan presents today on a walk-in basis for evaluation of some discharge from her panniculectomy incisions over her medial thighs. She reports that she was in town today from [place], [place], to get some labs drawn at [facility] and decided to stop by the [...] Sree Riley M.D. Chris Padgett M.D. / [id number] / [id number] / [id number] / [id number] C: 01/08/2005 cmw documented i n this encounter Plan of Treatment Not on filedocumented as of this encounter Visit Diagnoses Not on filedocumented in this encounter"
--- OUTSIDE RECORDS SUMMARY | ~2018-11-09 | XMS | Encounter Summary ---
Demographics + + + | Address | [address] | | | [place] [address] [...] Providers + +------+ + | Care Assistant Baseball Coach Name | Role | Phone | [...] | | | | | site | [place] | | | | | Cervicalgia | [address] | [address] | | | | | Pain in [...] | 2006 | Visit | Center at [facility] | [address] | without Myelopathy | | | | [place] [address] | Clementina Winkler [place], | (Primary Dx); | | | | [address] Mail Code: | [place] [address] | Spondylosis with | | | | CH15P [facility] for | | Myelopathy, Lumbar | | | | Health and Healing, | | Region; Herniated | | | | 15th Floor | | Lumbar | | | | [place], [place] | | Intervertebral Disc; | | | | [address] | | Unspecified Myalgia | | | | [phone] | | and Myositis | +--------+---------+ + [...] Date: July 17, 2006 Patient: Belinda Meehan, [id number], 1960 I agree with the proposed Physical Therapy Treatment Plan. Provider: DELFINA MOLINA ANP elfina Molina - 007 6:13 PM PST.pt rlands onNathalia - 07/15/2006 4:28 PM PSTFormatting of this note might be different from the origin al. Physical Therapy Medicare Progress Note Date: 07/15/2006 Belinda Meehan [id number]. 1960 Start of Care: 06/23/2006 Referring Provider: [...]
--- OUTSIDE RECORDS SUMMARY | ~2018-11-09 | XMS | Encounter Summary ---
Demographics + + + | Address | [address] | | | [place] [address] | + + + | Home Phone [...] | Morbid | Pedrito Maier, | MD Chirs | | | | | obesity | MD | [address] | | | | | (HCC) | [place] | [address] | | | | | | FAMILY | [address] [place], | | | | | | MEDICINE | [place] | | | | | | [address] | [address] | | | | | | [address] | Phone: | | | | | | [place], | [phone] | | | | | | [place] [address] | Fax: | | | | | | Phone: | [phone] | | | | | | [phone] | | | | | | | Fax: | | | | | | | [phone] | | +--------+--------+ + + + + [...] | | | [facility] | [place], [place] | | | | | Health and Healing, | [address] | | | | | 6th floor [place], | [phone] | | | | | [place] [address] | | | | | | [phone] | | | +--------+---------+ + + + [...] surgery. She is being followe d with [facility] providers for metabolic syndrome and hypothyroidism - Dr. Meeks, emotional issue s - Dr. Lukasz Ogden, and her PCP in [place]. She has sx of stress urinary incontinence [...] treated. She would like a urology or [facility] referral as appropriate. Labs ordered. See in [...] | | | | | | by [employer],[address] | | | | | | Stephlatia Morales, [facility], [place] | | | | | | [address] | | | | | | [email or web address]. | | | | | | Sincere [...] [facility] | [address] | [place], [place] | | | UNIV P[facility] - INTFC | | [address] | | + + + + + [...] | pg/mL | | | | | [facility]. | | | | + + + + + + + + | Specimen | + + | | + + + + + + + | Performing | Address | City/State/Zipcode | Phone Number | | Organization | | | | + + + + + | [facility] | [address] | [place] [address] | | | LABORATORY | | | [...] RLB ([facility]) | | | [facility] [address] | | | [place] [address] | | + + + + + + + + | Performing | Address | City/State/Zipcode | Phone Number | | Organization | | | | + + + + + | [facility] | [address] | [place] [address] | | | LABORATORY | | | [...] RLB ([address] [facility]) | | | [facility] [place] [address] | | | [place] [address] | | + + + + + + + + | Performing | Address | City/State/Zipcode | Phone Number | | Organization | | | | + + + + + | [facility] | [address] [place] [address] | | | LABORATORY | | | [...] Performed At | + + + | [address] Estimated GFR > 60 mL/min/1.73 sq m if non- | [facility] | | [address] Estimated GFR > 60 mL/min/1.73 sq m [...] DEPARTMENT OF | [address] | [place] [address] | | | PATHOLOGY | [address] | | | + + + + + | [facility] DEPARTMENT OF | [address] | [place] [address] | | | PATHOLOGY | [address] [...] + | [facility] | [facility] | [place] [address] | | | PATHOLOGY | [address] | | | + + + + + | [facility] | [facility] | [place] [address] | | | PATHOLOGY | [address] | | | + + + + + documented in this encounter Visit Diagnoses + + | Diagnosis | + + | Status post bariatric surgery - Primary Bariatric surgery status | + + documented in this encounter"
--- OUTSIDE RECORDS SUMMARY | ~2018-11-09 | XMS | Encounter Summary ---
Demographics + + + | Address | [address] | | | [place] [address] | + + + | Home Phone [...] Providers + +------+ + | Care Coordinator Volunteer Services Name | Role | Phone | [...] + + | 04/08/ | Telephone | [facility] Division of | Carlos Arreola, | Swelling | | 2005 | | Gastroenterology/Hep | [address] | (INTESTINES) | | | | atology [address] | | | | | [address] | [place] [address] | | | | | Road Mailcode: | [phone] | | | | | [facility] | | | | | | [address] | | | | | | [place], [place] | | | | | | [address] | | | | | | [phone] | | | +--------+ + + + [...]
--- OUTSIDE RECORDS SUMMARY | ~2018-11-09 | XMS | Encounter Summary ---
[...] +------+ + | Care Inbound Customer Service Representative Name | Role | Phone [...] | | | Center at [facility] | [place], [place] | and counseling | | | | Pav[address] | [address] | | | | | [address] [place] | [phone] | | | | | [facility] | | | | | | [facility] | | | | | | Pavilion [place], | | | | | | [place] [address] | | | | | | [phone] | | | +--------+ + + + [...]
--- OUTSIDE RECORDS SUMMARY | ~2018-11-09 | XMS | Encounter Summary ---
Demographics + + + | Address | [address] | | | [place] [address] | + + + | Home Phone [...] Team Providers + +------+ + | Care Calibration Tester Name | Role | Phone | [...] + + | 11/11/ | Office | [facility] Comprehensive | Delfina Molina, | Spondylosis with | | 2006 | Visit | Pain Center at | ANP | Myelopathy, Lumbar | | | | [facility] | | Region; Left Knee | | | | [address] | | Pain; Right Hip | | | | Mail Code: CH15P | | Region Pain; Opioid | | | | [facility] | | Dependence, | | | | and Healing, | | Continuous ([facility]); | | | | Floor [place], [place] | | Major Depressive | | | | [address] | | Disorder, Recurrent | | | | [phone] | | Episode, Moderate | | | | | | ([facility]); [...] two weeks. 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 Expectations for this visit include [...] hypothyroidism Bone spur on right heel - nursing associate last week, insurance [place] for [place] Current [...] bid 2. Fentanyl patch 25mcg/hr Q72hr 3. [place] 10/325 NTE 4 per day 4 Continue [...] weeks or sooner if needed. DELFINA MOLINA [facility] Comprehensive Pain Center Mail code CH 4P [facility] and [facility] [place] [address] [facility] [address] Tasha Can - 11/11/2006 9:29 AM PDTCMA [...]
--- OUTSIDE RECORDS SUMMARY | ~2018-11-09 | XMS | Encounter Summary ---
Demographics + + + | Address | [address] | | | [place] [address] | + + + | Home Phone [...] | Organization | [facility] | | | and [...] Providers + +------+ + | Care Launch Operator Name | Role | Phone | [...] LABS | | 2018 | | MEDICINE [address] [place] [address] | MD [place] | | | | | [facility] | [address] [place] [address] | | | | | [place] [address] | [place] [address] | | | | | [phone] | [phone] | | | | | | | [...] | | | | | [place] [address] | | | | | | [phone] | | | | | | | [...]
--- OUTSIDE RECORDS SUMMARY | ~2018-11-09 | XMS | Encounter Summary ---
Demographics + + + | Address | [address] | | | [place] [address] | + + + | Home Phone [...] | teaching, guidance, | | | | [address] | | and counseling | | | | Mailcode: PV430 | | | | | | Physician's [place] | | | | | | [place], [place] | | | | | | [address] | | | | | | [phone] | | | +--------+ + + + [...]
--- OUTSIDE RECORDS SUMMARY | ~2018-11-09 | XMS | Encounter Summary ---
[...] Team Providers + +------+ + | Care Monumental Stonemason Name | Role | Phone | + [...]
--- OUTSIDE RECORDS SUMMARY | ~2018-11-09 | XMS | Encounter Summary ---
Demographics + + + | Address | [address] | | | [place] [address] | + + + | Home Phone [...] + +------+ + | Care E Commerce Merchant Name | Role | Phone | [...] Mychal Kovacs | | | | | [facility] | [place], [place] | | | | | [place] [address] | [address] | | | | | [facility] | [phone] | | | | | [facility] | | | | | | [facility] | | | | | | [facility] [place], | | | | | | [place] [address] | | | | | | [phone] | | | +--------+--------+ + + + [...]
--- OUTSIDE RECORDS SUMMARY | ~2018-11-09 | XMS | Encounter Summary ---
Demographics + + + | Address | [address] | | | [place] [address] | + + + | Home Phone [...] Providers + +------+ + | Care Actuarial Science Professor Name | Role | Phone [...] + + | 09/23/ | Office | [facility] Comprehensive | Delfina Molina, | Spondylosis with | | 2006 | Visit | Pain Center at | ANP | Myelopathy, Lumbar | | | | [facility] | | Region; Herniated | | | | [address] | | Lumbar | | | | Mail Code: CH15P | | Intervertebral Disc | | | | [place] for [facility] | | L4-5; Right shoulder | | | | and , | | rotator cuff | | | | Floor [place], [place] | | strain; DJD | | | | [address]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 Continue with Pelican 10/325 1 tablet three times per day [...] 72 hours on schedule 2. Continue with Pelican 10/325 1 tablet three times per day as needed for increased pain wit h activity. 3. Continue with Trileptal 150mg, 1 tablet twice a day 4. Continue with PT and psychology as scheduled 5. Follow up with Delfina Molina in 4 weeks or sooner if needed. 6. Continue with orthopedic and neurology evaluations as scheduled DELFINA MOLINA [facility] Comprehensive Pain Center Mail code CH 4P [place] [facility] and [address] [address] Ty Omalley - 7 9:28 [...]
--- OUTSIDE RECORDS SUMMARY | ~2018-11-09 | XMS | Encounter Summary ---
Demographics + + + | Address | [address] | | | [place] [address] | + + + | Home Phone [...] Providers + +------+ + | Care Linux System Administrator Name | Role | Phone [...] Naeem Mcrae | | | | | [address] | [place], [place] | | | | | Health and Healing, | [address] | | | | | [address]th [facility], | [phone] | | | | | [place] [address] | | | | | | [phone] | | | +--------+ + + + [...]
--- OUTSIDE RECORDS SUMMARY | ~2018-11-09 | XMS | Encounter Summary ---
Demographics + + + | Address | [address] | | | [place] [address] | + + + | Home Phone [...] Providers + +------+ + | Care Pewter Fabricator Name | Role | Phone | [...] | | [facility] | [place], [place] | | | | | [place] [address] | [address] | | | | | Jayce Naeem [place] | [phone] | | | | | Road [facility] | | | | | | [facility] | | | | | | [facility] [place], | | | | | | [place] [address] | | | | | | [phone] | | | +--------+ + + + [...]
--- OUTSIDE RECORDS SUMMARY | ~2018-11-09 | XMS | Encounter Summary ---
Demographics + + + | Address | [address] | | | [place] [address] | + + + | Home Phone [...] Providers + +------+ + | Care Hydraulic Miner Name | Role | Phone | [...] as of this encounter Progress Notes Interface, Transit Clerk In - 08/30/2005 2:07 AM PST [id number] GE[facility]ANNI [facility] Date: 08/11/2005 Clinic: Colorectal [...] Rebekah Navas M.D. Chris Padgett M.D. / [id number] / [id number] / [id number] / [id number] E: 08/14/2005 [email or web address] cc: Dr. Sarah De Jesus, [place] Electronically signed by Chris Padgett 08-29-2005 03:28:30 PM documented i n this encounter Plan of Treatment Not on filedocumented as of this encounter Visit Diagnoses Not on filedocumented in this encounter"
--- OUTSIDE RECORDS SUMMARY | ~2018-11-09 | XMS | Encounter Summary ---
Demographics + + + | Address | [address] | | | [place] [address] | + + + | Home Phone [...] Providers + +------+ + | Care Hand Stapler Name | Role | Phone | + +------+ + | Pedrito Gutierrez MD | PCP | | + +------+ + Encounter Details +--------+ + + + + | Date | Type | Department | Care Team | Description | +--------+ + + + + | 11/24/ | Respiratory | | Other, Faculty | | | 2003 | | | [phone] | | | | Therapy[facility] | | [...]
--- OUTSIDE RECORDS SUMMARY | ~2018-11-09 | XMS | Encounter Summary ---
Demographics + + + | Address | [address] | | | [place] [address] | + + + | Home Phone [...] + +------+ + | Care Resident Services Manager Name | Role | Phone [...] Donaldson MD | | | | | [facility] | | | | | | Mailcode: PV430 | | | | | | [facility] [place] | | | | | | [place], [place] | | | | | | [address] | | | | | | [phone] | | | +--------+ + + + [...]
--- OUTSIDE RECORDS SUMMARY | ~2018-11-09 | XMS | Encounter Summary ---
Demographics + + + | Address | [address] | | | [place] [address] | + + + | Home Phone [...] Team Providers + +------+ + | Care Buddhist Monk Name | Role | Phone | + [...] + + | / | Office | 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 female [facility] [...] drawing has be completed, which I reviewed. MANAGER PLAN Brief Pain Inventory: Right Now: 9 Least [...] Physical therapy: Two days per week in [place] knees and both legs, shoulders and back [...] social history. Pending 08/30/07 DR Cadet in [facility]: right knee arthroplasty. Urology evaluation for [...] Collection Time Resulting Agency 05/25/2007 4:06 PM [facility] DEPARTMENT OF RADIOLOGY Component Results MR [...] HOSPITAL PAIN CENTER Mail code CH 4P [facility] [address] [facility] [address] Ailyn Bello 08/13/19 08 [...]
--- OUTSIDE RECORDS SUMMARY | ~2018-11-09 | XMS | Encounter Summary ---
Demographics + + + | Address | [address] | | | [place] [address] | + + + | Home Phone [...] Providers + +------+ + | Care Basketball Coach Name | Role | Phone | [...] | Diagnoses | Miracle, | Fili Pt Head Sampler | | | | Therapy | Muscle | NIHARIKA Jean | [facility] [address] | | | | | strain Neck | [address] | | | | | pain | [address] | Mailcode: | | | | | Fibromyalgia | [place], [place] | CH3P Center | | | | | Radicular | [address] | for Health | | | | | pain in left | | and Healing | | | | | arm | | [place], [place] | | | | | Procedures | | [address] | | | | | PHYSICAL | | Phone: | | | | | THERAPY | | [phone] | | | | | REFERRAL | [...] + + | 08/22/ | Office | [facility] Comprehensive | Delfina Lambert, | Muscle Strain hips; | | 2008 | Visit | Pain Center at | ANP | Fibromyalgia; Neck | | | | [facility] | | Pain; Radicular Pain | | | | [address] | | in Left Arm; | | | | Mail Code: CH15P | | Dizziness; Black | | | | [facility] | | Out; Falling | | | | and Healing, | |Falling | | | | Floor [place], [place] | | | | | | [address] | | | | | | [phone] | | | +--------+---------+ + + + [...] visit Schedule MRI of the neck at [facility] Use your TENS for the muscle [...] appointment to see lumbar spine surgery in [place] on . Psychiatric History: depressed mood, sleep [...] 278 01/18 Paniculectomy Hx lumbar fusion 05/2008 [id number] with bone spur removals Family History Problem [...] to get the MRI results befor planning [facility] care. Belinda was compliant with all [...] COMPREHENSIVE PAIN CENTER Mail code CH 4P [facility] [address] [place] [address] Ailyn Foster - 03/2009 9:30 AM [...]
--- OUTSIDE RECORDS SUMMARY | ~2018-11-09 | XMS | Encounter Summary ---
Demographics + + + | Address | [address] | | | [place] [address] | + + + | Home Phone [...] Providers + +------+ + | Care Light Equipment Operator Name | Role | Phone [...]
--- OUTSIDE RECORDS SUMMARY | ~2018-11-09 | XMS | Encounter Summary ---
Demographics + + + | Address | [address] | | | [place] [address] | + + + | Home Phone [...] + +------+ + | Care Stamp Pad Finisher Name | Role | Phone | [...] as of this encounter Progress Notes Interface, Non Emergency Services Ambulance Driver In - 02/15/2006 2:03 AM PDT [id number] GEOVANNI BELINDA Molly [id number] Clinic Date: 01/29/2006 Clinic: Endocrinology Belinda Meehan [...] her visits to the Emergency Department in [place], she apparently had elevated "liver enzyme levels" and her blood pressure was up to 160/98. She subsequently underwent diagnostic testing that apparently included CT imaging of her abdomen and upper GI endoscopy, abdominal ultrasound, and other testing; the results of which have apparently been normal. She started going to [employer] approximately 2 weeks ago which has increased her level of physical activity. She has only occasional headaches, due in part to ongoing treatment with propanolol. She apparently was referred by Dr. Padgett to see a insurance processing clerk here at [facility] for further evaluation of severe recurrent [...] (her blood pressure is usually 112/68 at [facility]), and pulse 60 beats per minute and [...] evaluated recently at the Emergency Department in [place]. Her alkaline phosphatase level today is about [...] would benefit from being evaluated by a insurance processing clerk. According to the patient, no gastroenterologists are available in [place]. She needs to petition her primary care provider and her insurance company to give the necessary authorization to allow her to be evaluated by a insurance processing clerk. Plan: 1. Await results of serum [...] She needs to be seen by a insurance processing clerk. 5. Return to see me again in 3 months. Beto Meeks M.D. PD / HS [id number] / [id number] / [id number] / cc: Pedrito Gutierrez M.D. [address] [place] [address] Chris Padgett M.D. Electronically signed by Beto Meeks 02-14-2006 02:02:55 AM documented i n this encounter Plan of Treatment Not on filedocumented as of this encounter Visit Diagnoses Not on filedocumented in this encounter
--- OUTSIDE RECORDS SUMMARY | ~2018-11-09 | XMS | Encounter Summary ---
Demographics + + + | Address | [address] | | | [place] [address] | + + + | Home Phone [...] Providers + +------+ + | Care Laborer Aquatic Life Name | Role | Phone | + +------+ + | Pedrito Gutierrez MD | PCP | | + +------+ + Encounter Details +--------+---------+ + + + | Date | Type | Department | Care Team | Description | +--------+---------+ + + + | 11/24/ | Office | Preoperative | 2, [facility] Department Chair [address] | Other Specified | | 2007 | Visit | Medicine Clinic at | [facility] [address] [facility] [address] | Pre-Operative | | | | [facility] 4th Floor [address] | [place] [address] | Examination; | | | | [address] Mail | | Hemorrhagic Disorder | | | | Code: [facility] Center | | due to Intrinsic | | | | for Health and | | Circulating | | | | Healing,4th Floor | | Anticoagulants | | | | [facility] [place] | | | | | | [address] | | | | | | [phone] | | | +--------+---------+ + + + [...] [place] DEPARTMENT OF | [address] [facility] | [place] [address] | | | PATHOLOGY | [address] | | | + + + + + | [place] DEPARTMENT OF | [address] [facility] | [place] [address] | | | PATHOLOGY | [address] [...] | [facility] DEPARTMENT | [address] | [place] [address] | | | PATHOLOGY | [address] | | | + + + + + | [facility] DEPARTMENT OF | [address] | [place] [address] | | | PATHOLOGY | [address] [...] DEPARTMENT OF | [address] | [place] [address] | | | PATHOLOGY | [address] | | | + + + + + | [facility] DEPARTMENT OF | [address] | [place] [address] | | | PATHOLOGY | [address] [...] Performed At | + + + | [id number] Estimated GFR > 60 mL/min/1.73 sq m if non- | [facility] | | Burmese [id number] Estimated GFR > 60 mL/min/1.73 sq m if | DEPARTMENT OF | | Burmese GFR is estimated using the MDRD equation [...] COUNSELING [facility]ENTER | [address] | [place] [address] | | | PATHOLOGY | [address] | | | + + + + + | [facility] | [facility] [address] | [place] [address] | | | PATHOLOGY | [address] [...] + + | Ordered by an | [facility] DEPT OF | | unspecified provider. Please click on view image for the detailed | CARDIOLOGY | | interpretation from [employer] results. | | |results. | | | | | + + + + + + + + | Performing | Address | City/State/Zipcode | Phone Number | | Organization | | | | + + + + + | [facility] DEPT OF | [address] | [place], [place] | | | CARDIOLOGY | [address] | [address] | | + + + + + | [facility] OF | [address] | [place], [place] | | | CARDIOLOGY | [address] | [address] | | + + + + + documented in this encounter Visit Diagnoses + + | Diagnosis | + + | Other specified pre-operative examination | + + | Hemorrhagic disorder due to intrinsic circulating anticoagulants | + + documented in this encounter
--- OUTSIDE RECORDS SUMMARY | ~2018-11-09 | XMS | Encounter Summary ---
Demographics + + + | Address | [address] | | | [place] [address] | + + + | Home Phone [...] Team Providers + +------+ + | Care Investigator Name | Role | Phone | + +------+ + | Pedrito Gutierrez MD | PCP | | + +------+ + Encounter Details +--------+ + + + + | Date | Type | Department | Care Team | Description | +--------+ + + + + | 05/20/ | Telephone | Digestive Health | Rohan Foley MD | | | 2005 | | [place] [facility] [address] | | | | | | [address] | | | | | | Mailcode: Center | | | | | | for Health and | | | | | | [facility], [address] | | | | | | [place], [place] | | | | | | [address] | | | | | | [phone] | | | +--------+ + + + [...]
--- OUTSIDE RECORDS SUMMARY | ~2018-11-09 | XMS | Encounter Summary ---
Demographics + + + | Address | [address] | | | [place] [address] | + + + | Home Phone [...] Providers + +------+ + | Care Financial Analyst Intern Name | Role | Phone [...] [address] | | | | | [address] | [place], [place] | | | | | Health and Healing, | [address] | | | | | 6th floor [place], | [phone] | | | | | [place] [address] | | | | | | [phone] | | | +--------+ + + + [...]
--- OUTSIDE RECORDS SUMMARY | ~2018-11-09 | XMS | Encounter Summary ---
Demographics + + + | Address | [address] | | | [place] [address] | + + + | Home Phone [...]
--- OUTSIDE RECORDS SUMMARY | ~2018-11-09 | XMS | Encounter Summary ---
[...] Team Providers + +------+ + | Care Atmospheric Physics Professor Name | Role | Phone | [...] | teaching, guidance, | | | | [facility] [address] | | and counseling | | | | Mailcode: PV430 | | | | | | Physician's [place] | | | | | | [place], [place] | | | | | | [address] | | | | | | [phone] | | | +--------+ + + + [...]
[~2018-11-09 09:18] MED LIST changes: +COMBIGAN EYE DRO5 ML OU; +FLUTICASONE PRO16 GM NAS; +K-TAB ER20 MEQ PO; +KETOCONAZOLE15 GM TOP; +LEVAQUIN750 MG PO; +METOPROLOL TART25 MG PO; +METRONIDAZOLE250 MG PO; +OLOPATADINE HC2.5 ML OU; +OMEPRAZOLE20 MG PO; +SUMATRIPTAN SUC25 MG PO; +SYSTANE BALANCE10 ML OU; +TOPIRAMATE50 MG PO; +VITAMIN D5000 UNI1 PO; +ZOFRAN ODT4 MG PO
--- OUTSIDE RECORDS SUMMARY | 2018-11-09 09:22 | XMS ---
PreManage Notification: NAFISA GALARZA Security Sr Solutions Consultant Events No recent Security Events currently on file CRITERIA MET - Group Notification - PDMP CARE PROVIDERS [place], Internal Medicine Current JOHN PHONE: Unknown Helio Vasquez Current PHONE: Unknown Daniella has no Care Guidelines for this patient. Mona VISIT COUNT (12 MO.) Katalina Martin TOTAL 3 NOTE: Visits indicate total known visits. ED/UCC VISIT TRACKING (12 MO.) 11/09/2018 09:19 [facility] [place] TYPE: Emergency COMPLAINT: - WEAKNESS/DIAHRREA/VOMITING 03/05/2018 17:00 [facility] [place] TYPE: Emergency COMPLAINT: - VOMITING 03/04/2018 09:30 [facility] [place] TYPE: Emergency COMPLAINT: - VOMITING DIAGNOSES: - Allergy status to penicillin - Other nursing home (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 - Allergy status to other antibiotic agents status - Dizziness and giddiness - Dehydration - Allergy status to sulfonamides status - Allergy status to narcotic agent status - Noninfective gastroenteritis and colitis, unspecified - Allergy status to analgesic agent status - Urinary tract infection, site not specified - Allergy status to other drugs, medicaments and biological substances status - Personal history of nicotine dependence INPATIENT VISIT TRACKING (12 MO.) 03/05/2018 23:[address] [facility] [place] TYPE: Medical Surgical COMPLAINT: - SMALL BOWEL OBSTRUCTION DIAGNOSES: - Bariatric surgery status - Intestinal adhesions [bands], unspecified as to partial versus complete obstruction - Urinary tract infection, site not specified - Personal history of nicotine dependence - Acquired absence of ovaries, bilateral - Postgastric surgery syndromes - Hypothyroidism, unspecified - Meniere's disease, unspecified ear - Unspecified intestinal obstruction, unspecified as to partial versus complete obstruction - Epigastric pain - Essential (primary) hypertension [email or web address]
[2018-11-09] MEDS ORDERED: ZOFRAN4 MG SL (12:26)
== END 2018-11-09 12:40 | disposition home or self-care (01) ==
LOC: ED 09:18
DX: A08.4 Viral intestinal infection, unspecified (principal); Z87.891 Personal history of nicotine dependence; Z90.49 Acquired absence of other specified parts of digestive tract; Z90.710 Acquired absence of both cervix and uterus; Z88.0 Allergy status to penicillin; Z88.1 Allergy status to other antibiotic agents; Z88.5 Allergy status to narcotic agent; Z88.6 Allergy status to analgesic agent; Z88.8 Allergy status to other drugs, medicaments and biological substances; Z79.899 Other long term (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
CPT/HCPCS: 74177; 80053; 81001; 83605; 83690; 85025; 99284-25; J1170; J2405; J7030

== ENCOUNTER → 2018-12-11 | Emergency (ER) | payer MEDICARE, OTHER ==
[~2018-12-11] VITALS: Ht 172.7 cm; Wt 91.6 kg
[~2018-12-11] MED LIST changes: +EPIN0.3P; +ZOFRAN4 MG SL
--- OUTSIDE RECORDS SUMMARY | 2018-12-11 20:08 | XMS ---
PreManage Notification: NAFISA GUIDRY Security Litigation Paralegal Events No recent Security Events currently on file CRITERIA MET - Group Notification - [facility] - Has Care Guidelines - PDMP CARE PROVIDERS [place] Internal Medicine Current JOHN PHONE: Unknown Helio Vasquez Treatment Current PHONE: Unknown Daniella has no Care Guidelines for this patient. Care History Medical/Surgical 11/10/2018 [facility] - W CONTACTED PATIENT. PATIENT HAS A PCP APT WITH PCP OFFICE ON 11/15/18 FOR ER FOLLOW UP. E.D. VISIT COUNT (12 MO.) 4 [facility] TOTAL 4 NOTE: Visits indicate total known visits. ED/UCC VISIT TRACKING (12 MO.) 12/11/2018 20:06 [facility] [place] TYPE: Emergency COMPLAINT: - DIZZINESS/FALL 11/09/2018 09:19 [facility] [place] TYPE: Emergency COMPLAINT: - WEAKNESS/DIAHRREA/VOMITING DIAGNOSES: - Other ad terminal makeup operator (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 - Allergy status to other drugs, medicaments and biological substances status - Allergy status to other antibiotic agents status - Nausea with vomiting, unspecified - Viral intestinal infection, unspecified - Allergy status to narcotic agent status - Acquired absence of other specified parts of digestive tract - Acquired absence of both cervix and uterus - Allergy status to penicillin - Allergy status to analgesic agent status - Personal history of nicotine dependence 03/05/2018 17:00 [facility] [place] TYPE: Emergency COMPLAINT: - VOMITING 03/04/2018 09:30 [facility] [place] TYPE: Emergency COMPLAINT: - VOMITING DIAGNOSES: - Allergy status to penicillin - Other [facility] (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 - Allergy status to [...] - Epigastric pain - Essential (primary) hypertension [email or web address]
--- NOTE | 2018-12-12 17:28 | EKG ---
[facility] [address] [facility] [place], [place] [address] Signed Sinus bradycardia Low voltage QRS Borderline ECG Confirmed by ROSINA BECKMAN DO ([id number]) on 12/12/2018 5:28:15 PM Electronically Signed By: ROSINA BECKMAN DO 12/12/18 1728 PATIENT NAME: NAFISA GUIDRY Electrocardiogram DATE OF : 58 PHYSICIAN: ROSINA BECKMAN DO REPORT #: [id number] REPORT IS CONFIDENTIAL AND NOT TO BE RELEASED WITHOUT AUTHORIZATION
== END ==
LOC: ED 20:05
DX: M54.5 Low back pain (principal); Z87.891 Personal history of nicotine dependence; Z90.710 Acquired absence of both cervix and uterus; Z88.0 Allergy status to penicillin; Z90.49 Acquired absence of other specified parts of digestive tract; Z88.1 Allergy status to other antibiotic agents; Z88.5 Allergy status to narcotic agent; Z88.2 Allergy status to sulfonamides; Z88.6 Allergy status to analgesic agent; Z88.8 Allergy status to other drugs, medicaments and biological substances; Z79.899 Other long term (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; W18.30XA Fall on same level, unspecified, initial encounter
CPT/HCPCS: 72128; 72131; 72170; 80053; 83735; 84484; 85025; 93005; 93010; 96374; 99284-25; J2405

== ENCOUNTER 2019-06-25 21:38 | Emergency (ER) | payer MEDICARE, OTHER ==
[~2019-06-25] VITALS: Ht 172.7 cm; Wt 91.6 kg
== END 2019-06-25 23:11 | disposition home or self-care (01) ==
LOC: ED 21:38
DX: G89.11 Acute pain due to trauma (principal); M25.511 Pain in right shoulder; G43.909 Migraine, unspecified, not intractable, without status migrainosus; Z87.891 Personal history of nicotine dependence; Z88.5 Allergy status to narcotic agent; Z88.1 Allergy status to other antibiotic agents; Z88.0 Allergy status to penicillin; Z88.2 Allergy status to sulfonamides; Z88.6 Allergy status to analgesic agent; Z79.899 Other long term (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
CPT/HCPCS: 73030; 99283-25

== ENCOUNTER 2019-10-16 02:59 | Emergency (ER) | payer MEDICARE, OTHER ==
[~2019-10-16] VITALS: Ht 167.6 cm; Wt 99.8 kg
--- OUTSIDE RECORDS SUMMARY | ~2019-10-16 | XMS | Encounter Summary ---
Demographics + + + | Address | [address] | | | [place] [address] | + + + | Home Phone | | + + + | Preferred Language | Unknown | + + + | Marital Status | | + + + | Mu-Ism Affiliation | 1001 | + + + | Race | Unknown | + + + | Ethnic Group | Unknown | + + + Author + + + | Author | [facility] | | | and Jairana | + + + | Organization | [facility] | | | and [...] Team Providers + +------+ + | Care Integration Director Name | Role | Phone | + +------+ + | Petrona Thapa | PCP | | | MD | | | + +------+ + Reason for Visit + + + | Reason | Comments | + + + | New Patient | Vertigo. Echoing in her ears. Migraines | + + + Evaluate & Treat (Routine) +--------+ + + + + + | Status | Reason | Specialty | Diagnoses / | Referred By | Referred To | | | | | Procedures | Contact | Contact | +--------+ + + + + + | Closed | Specialty | Otolaryngolog | Diagnoses | | Ulysses Genao | | | Services | y | Vertigo | Emmy-Tajt | MD Sid [address] | | | Required | | Procedures | i, | [address] | | | | | 6/ APRIL | [place] | [address] | | | | | PENDING | MD [address] | [place], | | | | | | [address] | [place] [address] | | | | | | [place], | Phone: | | | | | | [place] | [phone] | | | | | | [address] | Fax: | | | | | | Phone: | [phone] | | | | | | [phone] | | | | | | | Fax: | | | | | | | [phone] | | +--------+ + + + + + Encounter Details +--------+---------+ + + + | Date | Type | Department | Care Team | Description | +--------+---------+ + + + | 12/30/ | Office | [facility] | Ulysses Genao MD | Benign paroxysmal | | 2018 | Visit | OTOLARYNGOLOGY [address] | [address] [place] | positional vertigo, | | | | [address] | [address] [place], | unspecified | | | | [place], [place] | [place] [address] | laterality (Primary | | | | [address] | [phone] | Dx); Dysfunction of | | | | [phone] | | left eustachian tube | +--------+---------+ + + + Social History [...] + + + | Blood Pressure | 110/64 | 12/30/2017 2:14 PM | | | | | PDT | | + + + + + | Pulse | 59 | 12/30/2017 2:14 PM | | | | | PDT | | + + + + + | Temperature | - | - | | + + + + + | Respiratory Rate | 15 | 12/30/2017 2:14 PM | | | | | PDT | | + + + + + | Oxygen Saturation | 97% | 12/30/2017 2:14 PM | | | | | PDT | | + + + + + | Inhaled Oxygen | - | - | | | Concentration | | | | + + + + + | Weight | 102.1 kg (225 lb) | 12/30/2017 2:14 PM | | | | | PDT | | + + + + + | Height | 172.7 cm (5' 8") | 12/30/2017 2:14 PM | | | | | PDT | | + + + + + | Body Mass Index | 34.21 | 12/30/2017 2:14 PM | | | | | PDT | | + + + + + documented in this encounter Progress Notes Ulysses Genao MD - 12/30/2017 2:15 PM PDTPatient comes in because of persistent problems with her balance. She has a chronic back disease and walks with a cane. She notes that she has spinning sensations if she does much turning of her head. She has very significant fli ght of ideas and that she was hard to narrow down her answers and that most the time was cassy te vague. She denies any dizziness when she moves in bed and indicates that most the time s he does lays on her back. When she first sits up she occasionally feels lightheaded but in discussing it at length it would seem that it's not lightheaded bit more the spinning sensat ion. She was shown how to do Tayler maneuvers in the past and has tried to do it on her own but not having any significant improvement. She's previously had an MRI scan of her head in 2015 and also of the ENG that showed benign positional vertigo. She also notes that in her left ear she has an echo type of sound. She is accompanied by a care provider. Examination: Patient is an alert 57-year-old patient who again has a lot of flight of ideas . Skin of the face nose and ears all appeared to be smooth and healthy. Ear canals are ope n and clean and drums are clear. Nasal passages no obstruction no mass or lesion noted. In the oral cavity no mass or lesions were noted. No mass seen in the oropharynx and posterio r pharyngeal wall is smooth. Patient has upper and lower dentures. Neck there was no mass or lymphadenopathy noted. Thyroid area smooth and trachea is midline. She moves her neck o kylie without any obvious nystagmus of the eyes noted at the moment. She seems reluctant to g o to move her head. She is walking with a cane because of the chronic back problem. Patien t's tympanograms were normal A shaped tympanograms. The left tympanogram has a negative nichole ft to it. Her speech ship erector threshold is 20 dB in the right ear and 30 dB in the left ea r and this is down from 15 in both ears in 2015. Her speech discrimination scores were 100% in the right ear and 96% in the left ear. Impression: Probable benign paroxysmal positional vertigo. #2 left ear eustachian tube dys function. Plan: Patient will be scheduled with physical therapy for an Tayler maneuver. If this is no t improving her condition then she may need a repeat MRI scan of her head. Extended time wa s spent with the patient because of the difficulty eating able to get clear answers.Scott moreau signed by Ulysses Genao MD at 12/31/2017 8:20 AM PDTdocumented in this encounter Plan of Treatment +--------+ + + + + | Date | Type | Specialty | Care Team | Description | +--------+ + + + + | 10/16/ | Clinical | Internal Medicine | | | | 2019 | Support | | | | +--------+ + + + + | 11/14/ | Office | Internal Medicine | Alanis, | | | 2019 | Visit | | MD Petrona | | | | | | [address] [place] | | | | | | [place], [place] [address] | | | | | | [phone] | | | | | | | | +--------+ + + + + | 12/20/ | Office | Audiology | Elisabet Munson MS | | | 2019 | Visit | | [facility] [address] | | | | [address] [place] | | | | | | [place] [address] | | | | | | [phone] | | | | | | | | +--------+ + + + + | 12/20/ | Office | Otolaryngology | Ulysses Genao MD | | | 2019 | Visit | | [address] | | | | | | [address] [place], | | | | | | [place] [address] | | | | | | [phone] | | | | | | | | +--------+ + + + + + + +--------+ + + | Name | Type | Priori | Associated Diagnoses | Order Schedule | | | | ty | | | + + +--------+ + + | * [facility] | Outpatient | Routin | Vertigo | Ordered: 11/18/2017 | | Otolaryngology - AMB | Referral | e | | | | Referral | | | | | + + +--------+ + + documented as of this encounter Visit Diagnoses + + | Diagnosis | + + | Benign paroxysmal positional vertigo, unspecified laterality - Primary | + + | Dysfunction of left eustachian tube Dysfunction of Eustachian tube | + + documented in this encounter
--- OUTSIDE RECORDS SUMMARY | ~2019-10-16 | XMS | Encounter Summary ---
Demographics + + + | Address | [address] | | | [place] [address] | + + + | Home Phone | | + + + | Preferred Language | Unknown | + + + | Marital Status | | + + + | Methodist Affiliation | 1001 | + + + | Race | Unknown | + + + | Ethnic Group | Unknown | + + + Author + + + | Author | [facility] | | | and Jairana | + + + | Organization | [facility] | | | and [...] Team Providers + +------+ + | Care Kick Plate Installer Name | Role | Phone | + +------+ + | Petrona Thapa | PCP | | | MD | | | + +------+ + Reason for Visit + + + | Reason | Comments | + + + | Lab Results | | + + + Encounter Details +--------+ + + + + | Date | Type | Department | Care Team | Description | +--------+ + + + + | 11/16/ | Telephone | [facility] | Alanis, | Lab Results | | 2019 | | MEDICINE [address] [place] [address] | MD Petrona | | | | | [facility] | [address] [place] [address] | | | | | [place] [address] | [place] [address] | | | | | [phone] | [phone] | | | | | | | [...] + + documented as of this encounter Plan of Treatment +--------+ + [...] Petrona | | | | | | [facility] [address] | | | | | | [place] [address] | | | | | | [phone] | | | | | | | | +--------+ + + + + | 12/20/ | Office | Audiology | Elisabet Munson MS | | 2019 | Visit | | [facility] [address] [place] | | | | | | [place] [address] | | | | | | [phone] | | | | | | | | +--------+ + + + + | 12/20/ | Office | Otolaryngology | Ulysses eGnao MD | | | 2020 | Visit | | [address] | | | | | | [address] [place], | | | | | | [place] [address] | | | | | | [phone] | | | | | | | | +--------+ + + + + documented as of this encounter Visit Diagnoses Not on filedocumented in this encounter"
--- OUTSIDE RECORDS SUMMARY | ~2019-10-16 | XMS | Encounter Summary ---
Demographics + + + | Address | [address] | | | [place] [address] | + + + | Home Phone | | + + + | Preferred Language | Unknown | + + + | Marital Status | Single | + + + | Latter-Day Affiliation | ADV | + + + | Race | White | + + + | Ethnic Group | Not or | + + + Author + + + | Author | [facility] | + + + | Organization | [facility] | + + + | Address | [...] Team Providers + +------+ + | Care Crate Repairer Name | Role | Phone | + +------+ + | Pedrito Gutierrez MD | PCP | | + +------+ + Encounter Details +--------+ + + + + | Date | Type | Department | Care Team | Description | +--------+ + + + + | 01/01/ | Hospital | Diagnostic | | | | 2008 | Encounter | [facility] | | | | | | [address] | | | | | | [address] | | | | | | [place], [address] | | | | | | [place], [place] | | | | | | [address] | | | | | | [phone] | | | +--------+ + + + [...] + + documented as of this encounter Medications at Time of Discharge + + + +---------+ + + | Medication | Sig | Dispensed | Refills | Start | End Date | | | | | | Date | | + + + +---------+ + + | CALCIUM 600 WITH | 1000 mg tab 4 x | | 0 | | | | VITAMIN D OR | daily | | | | | + + + +---------+ + + | Cyanocobalamin | 1 inj q month | | 0 | | | | 1,000 mcg/mL | | | | | | | Injection Syringe | | | | | | + + + +---------+ + + | methocarbamol 750 | Take 1 tablet by | | 0 | | | | mg Oral Tablet | mouth three times | | | | | | | daily. | | | | | + + + +---------+ + + | Multivitamin Oral | 1 tab by mouth twice | | 0 | | | | Tablet | daily | | | | | + + + +---------+ + + | POTASSIUM CHLORIDE | take 3 tablet | | 0 | | | | SR 20 MEQ TAB, | (20meq) by oral | | | | | | PARTICLES/CRYSTALS | route twice daily | | | | | | | with food | | | | | + + + +---------+ + + | sucralfate | Take 1 Tab by mouth | 120 | 1 | 11/11/19 | | | (CARAFATE) 1 gram | before meals. | | | 09 | | | Oral Tablet | | | | | | + + + +---------+ + + documented as of this encounter Plan of Treatment Not on filedocumented as of this encounter Procedures + +--------+ + + + | Procedure Name | Priori | Date/Time | Associated Diagnosis | Comments | | | ty | | | | + +--------+ + + + | X-RAY SCAPULA | Routin | 01/01/2009 | Neoplasm of | Results for this | | COMPLETE | e | 11:55 AM | Uncertain Behavior | procedure are in the | | | | PDT | of Bone and | results section. | | | | | Articular Cartilage | | + +--------+ + + + documented in this encounter Results X-RAY SCAPULA COMPLETE (01/01/2009 11:55 AM PDT) + + + + + + | Component | Value | Ref Range | Performed | Pathologist | | | | | At | Signature | + + + + + + | SCAPULA | ,,PRELIMINARY - | | | | | COMPLETE | UNSIGNED Med Rec No: | | | | | | [id number] Name: | | | | | | BELINDA MEEHAN | | | | | | Birthday: 1960 | | | | | | Sex: F | | | | | | Alias:Patient Location: | | | | | | [id number]: Outpatient | | | | | | ActiveOrdering | | | | | | Physician: JOSÉ MIGUEL | | | | | | MARYSOL MORENO SCAPULA | | | | | | COMPLETE completed on | | | | | | 01/01/2009 11:55 | | | | | | AMAccession # | | | | | | [id number]:LEFT | | | | | | SCAPULA COMPLETE: | | | | | | 01/01/2009 Dictated | | | | | | 01/01/2009COMPARISON: | | | | | | Bilateral shoulders, | | | | | | 07/24/2008.FINDINGS: | | | | | | The osseous structures | | | | | | are intact with no | | | | | | fracture ormalalignment. | | | | | | There is persistent | | | | | | calcification within the | | | | | | distalsupraspinatus | | | | | | tendon. There is mild | | | | | | spurring at | | | | | | theacromioclavicular | | | | | | joint. The visualized | | | | | | scapula is normal. | | | | | | Medialclavicle is not | | | | | | well appreciated on this | | | | | | study. The visualized | | | | | | leftchest and soft | | | | | | tissues are | | | | | | normal.IMPRESSION:1. 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 | | | | | | Incompletely evaluated | | | | | | medial left | | | | | | clavicle.END | | | | | | IMPRESSION:I have | | | | | | personally viewed this | | | | | | procedure/exam and | | | | | | reviewed this | | | | | | report.STATUS | | | | | | PRELIMINARY - UNSIGNED / | | | | | | Ailyn Cisse have | | | | | | personally viewed this | | | | | | procedure/exam and | | | | | | reviewed this | | | | | | report.Author: BONNIE | | | | | | NOHELIA | | | | | | JoannaReviewer: BONNIE | | | | | | Joanna POZOSTATUS | | | | | | FINAL / Dr. NICOLE | | | | | | NOHELIASTATUS | | | | | | PRELIMINARY - UNSIGNED / | | | | | | Dr. 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
--- OUTSIDE RECORDS SUMMARY | ~2019-10-16 | XMS | Encounter Summary ---
Demographics + + + | Address | [address] | | | [place] [address] | + + + | Home Phone | | + + + | Preferred Language | Unknown | + + + | Marital Status | | + + + | Advent Affiliation | 1001 | + + + | Race | Unknown | + + + | Ethnic Group | Unknown | + + + Author + + + | Author | [facility] | | | and Jairana | + + + | Organization | [facility] | | | [...] Team Providers + +------+ + | Care Deckhand Name | Role | Phone | + +------+ + | Petrona Thapa | PCP | | | MD | | | + +------+ + Reason for Visit +--------+ + | Reason | Comments | +--------+ + | Other | | +--------+ + Encounter Details +--------+ + + + + | Date | Type | Department | Care Team | Description | +--------+ + + + + | 04/02/ | Telephone | [facility] | Alanis, | Other | | 2018 | | MEDICINE [address] [place] [address] | MD Petrona | | | | | [facility] | [address] [place] [address] | | | | | [place] [address] | [place] [address] | | | | | [phone] | [phone] | | | | | | | [...] [place] | | | | | | [place] [address] | | | | | | [phone] | | | | | | | | +--------+ + + + + | 12/20/ | Office | Audiology | Elisabet Munson MS | | 2019 | Visit | | [facility] [address] | | | | | [address] [place] | | | | | | [place] [address] | | | | | | [phone] | | | | | | | | +--------+ + + + + | 12/20/ | Office | Otolaryngology | Ulysses Genao MD | | | 2020 | Visit | | [address] [facility] | | | | | | [address] [place], | | | | | | [place] [address] | | | | | | [phone] | | | | | | | | +--------+ + + + + documented as of this encounter Visit Diagnoses Not on filedocumented in this encounter"
--- OUTSIDE RECORDS SUMMARY | ~2019-10-16 | XMS | Encounter Summary ---
Demographics + + + | Address | [address] | | | [place] [address] | + + + | Home Phone | | + + + | Preferred Language | Unknown | + + + | Marital Status | | + + + | Spiritism Affiliation | 1001 | + + + | Race | Unknown | + + + | Ethnic Group | Unknown | + + + Author + + + | Author | [facility] | | | and Jairana | + + + | Organization | [facility] | | [...] Team Providers + +------+ + | Care Bead Wrapper Name | Role | Phone | + +------+ + PCP | Unavailable | + +------+ + Encounter Details +--------+ + + + + | Date | Type | Department | Care Team | Description | +--------+ + + + + | 07/30/ | Hospital | [facility] | Ulysses Genao MD | | | 2011 - | Encounter | [facility] | [address] | | | | | [address] [place] | [address] [place], | | | / | | [place] [address] | [place] [address] | | | 2011 | | [phone] | [phone] | | | | | | | | +--------+ + + + + Social History + +-------+ +--------+------+ | Tobacco Use | Types | Packs/Day | Years | Date | | | | | Used | | + +-------+ +--------+------+ | Never Assessed | | | | | + +-------+ +--------+------+ + + + | Sex Assigned at [...] + + + +---------+ + + | promethazine | Take 25 mg by mouth | | 0 | 05/20/20 | | | (PHENERGAN) 25 mg | every 6 hours as | | | 10 | 5 | | tablet | needed. | | | | | + + + +---------+ + + documented as of this encounter Plan of Treatment +--------+ + + + + | Date | Type | Specialty | Care Team | Description | +--------+ + + + + | 10/16/ | Clinical | Internal Medicine | | | | 2020 | Support | | | | +--------+ + + + + | 11/14/ | Office | Internal Medicine | Alanis, | | | 2019 | Visit | | MD Petrona | | | | | | [address] [place] | | | | | | [place] [address] | | | | | | [phone] | | | | | | | | +--------+ + + + + | 12/20/ | Office | Audiology | Elisabet Munson MS | | | 2019 | Visit | | [facility] [address] | | | | [address] [place] | | | | | | [place] [address] | | | | | | [phone] | | | | | | | | +--------+ + + + + | 12/20/ | Office | Otolaryngology | Ulysses Genao MD | | | 2019 | Visit | | [address] | | | | | | [address] [place], | | | | | | [place] [address] | | | | | | [phone] | | | | | | | | +--------+ + + + + documented as of this encounter Visit Diagnoses Not on filedocumented in this encounter"
--- OUTSIDE RECORDS SUMMARY | ~2019-10-16 | XMS | Encounter Summary ---
Demographics + + + | Address | [address] | | | [place] [address] | + + + | Home Phone | | + + + | Preferred Language | Unknown | + + + | Marital Status | | + + + | Anabaptist Affiliation | 1001 | + + + | Race | Unknown | + + + | Ethnic Group | Unknown | + + + Author + + + | Author | [facility] | | | and Jairana | + + + | Organization | [facility] | | [...] Team Providers + +------+ + | Care Crimp Setter Name | Role | Phone | + +------+ + | Petrona Thapa | PCP | | | MD | | | + +------+ + Reason for Visit + + + | Reason | Comments | + + + | Medical Problem | | + + + Encounter Details +--------+ + + + + | Date | Type | Department | Care Team | Description | +--------+ + + + + | 07/17/ | Telephone | [facility] | Alanis, | Medical Problem | | 2017 | | MEDICINE [address] [place] [address] | MD Petrona | | | | | [facility] | [address] [place] [address] | | | | | [place] [address] | [place] [address] | | | | | [phone] | [phone] | | | | | | | [...] [place] | | | | | | [place] [address] | | | | | | [phone] | | | | | | | | +--------+ + + + + | 12/20/ | Office | Audiology | Ceasar MunsonahMS | | | 2019 | Visit | | [facility] [address] [place] | | | | | | [place] [address] | | | | | | [phone] | | | | | | | | +--------+ + + + + | 12/20/ | Office | Otolaryngology | Ulysses Genao MD | | | 2019 | Visit | | [address] | | | | | | [address] [place], | | | | | | [place] [address] | | | | | | [phone] | | | | | | | | +--------+ + + + + documented as of this encounter Visit Diagnoses Not on filedocumented in this encounter"
--- OUTSIDE RECORDS SUMMARY | ~2019-10-16 | XMS | Encounter Summary ---
Demographics + + + | Address | [address] | | | [place] [address] | + + + | Home Phone | | + + + | Preferred Language | Unknown | + + + | Marital Status | | + + + | Episcopalian Affiliation | 1001 | + + + | Race | Unknown | + + + | Ethnic Group | Unknown | + + + Author + + + | Author | [facility] | | | and Jairana | + + + | Organization | [facility] | | | and [...] Team Providers + +------+ + | Care Warehouse Handler Name | Role | Phone | + +------+ + | Petrona Thapa | PCP | | | MD | | | + +------+ + Encounter Details +--------+ + + + + | Date | Type | Department | Care Team | Description | +--------+ + + + + | 09/01/ | Abstract | [facility] | Provider, | | | 2018 | | GASTROENTEROLOGY | MD Colin [address] | | | | | [address] [facility] | Sulma [address]. | | | | | [address] [place] | [place] [address] | | | | | [address] | | | | | | [phone] | | | +--------+ + + + [...] | | | | | [place] [address] | | | | | | [phone] | | | | | | | | +--------+ + + + + | 12/20/ | Office | Audiology | Elisabet Munson MS | | 2019 | Visit | | [facility] [address] | | | | | | [facility] [place] | | | | | | [place] [address] | | | | | | [phone] | | | | | | | | +--------+ + + + + | 12/20/ | Office | Otolaryngology | Ulysses Genao MD | | | 2019 | Visit | | [address] [facility] | | | | | | [address] [place], | | | | | | [place] [address] | | | | | | [phone] | | | | | | | | +--------+ + + + + documented as of this encounter Visit Diagnoses Not on filedocumented in this encounter"
--- OUTSIDE RECORDS SUMMARY | ~2019-10-16 | XMS | Encounter Summary ---
Demographics + + + | Address | [address] | | | [place] [address] | + + + | Home Phone | | + + + | Preferred Language | Unknown | + + + | Marital Status | | + + + | Christian Affiliation | 1001 | + + + | Race | Unknown | + + + | Ethnic Group | Unknown | + + + Author + + + | Author | [facility] | | | and Jairana | + + + | Organization | [facility] | | [...] Team Providers + +------+ + | Care Bottom Crane Operator Name | Role | Phone | + +------+ + | Petrona Thapa | PCP | | | MD | | | + +------+ + Reason for Visit + + + | Reason | Comments | + + + | Hospitalization | | + + + Encounter Details +--------+ + + + + | Date | Type | Department | Care Team | Description | +--------+ + + + + | 03/08/ | Telephone | [facility] | Alanis, | Hospitalization | | 2017 | | MEDICINE [address] [place] [address] | MD Petrona | | | | | [facility] | [address] [place] [address] | | | | | [place] [address] | [place] [address] | | | | | [phone] | [phone] | | | | | | | [...] | | | | | | [address] [facility] | | | | | | [place] [address] | | | | | | [phone] | | | | | | | | +--------+ + + + + | 12/20/ | Office | Audiology | Elisabet Munson MS | | | 2019 | Visit | | [facility] [address] [place] | | | | | | [place], [place] [address] | | | | | | [phone] | | | | | | | | +--------+ + + + + | 12/20/ | Office | Otolaryngology | Ulysses Genao MD | | | 2019 | Visit | | [address] | | | | | | [address] [place], | | | | | | [place] [address] | | | | | | [phone] | | | | | | | | +--------+ + + + + documented as of this encounter Visit Diagnoses Not on filedocumented in this encounter"
--- OUTSIDE RECORDS SUMMARY | ~2019-10-16 | XMS | Encounter Summary ---
Demographics + + + | Address | [address] | | | [place] [address] | + + + | Home Phone | | + + + | Preferred Language | Unknown | + + + | Marital Status | | + + + | Confucianist Affiliation | [id number] | + + + [...] Team Providers + +------+ + | Care Film Cleaner Name | Role | Phone | + +------+ + | Petrona Thapa | PCP | | | MD | | | + +------+ + Encounter Details +--------+---------+ + + + | Date | Type | Department | Care Team | Description | +--------+---------+ + + + | 12/20/ | Office | [facility] | Elisabet Munson MS | Sensorineural | | 2019 | Visit | AUDIOLOGY AND | [facility] [address] | hearing loss (SNHL) | | | | [facility] | [address] [place] | of both ears | | | | [address] | [place] [address] | (Primary Dx); | | | | [address] [place] | [phone] | Dizziness and | | | | [place] [address] | | giddiness | | | | [phone] | | | +--------+---------+ + + + [...] documented as of this encounter Progress Notes Elisabet Munson MS [facility] - 12/20/2018 9:30 AM PDTReferring Provider: No additional provider found M.Buzz. Ms. Meehan presents with dizziness and more hearing loss in the right ear. Results of Hearing Test: Right ear--Pure tone air and bone conduction testing showed a flat 40-25dB threshold at 250 Hz through 8 KHz. Left ear --Pure tone air and bone conduction testing showed a flat 25-45dB threshold at 250 Hz through 8 KHz. Speech Recognition Thresholds were 30dB in the right ear and 25dB in the left ear. Speech Discrimination Scores were 100% in right ear and 100% in the left ear. Tympanometry showed normal type A tracing in right ear and a Type C tracing with signif icant negative air pressure in the left ear.. Impression and Recommendation: A bilateral sensory-neural hearing loss with dizziness. Follow-up care with Dr. Genao, . Thank you. documented in thi s encounter Plan of Treatment +--------+ + + + + | Date | Type | Specialty | Care Team | Description | +--------+ + + + + | 10/16/ | Clinical | Internal Medicine | | | | 2020 | Support | | | | +--------+ + + + + | 11/14/ | Office | Internal Medicine | Alanis | | | 2019 | Visit | | MD Petrona | | | | | | [address] [place] | | | | | | [place] [address] | | | | | | [phone] | | | | | | | | +--------+ + + + + | 12/20/ | Office | Audiology | Elisabet Munson MS | | | 2019 | Visit | | [facility] [address] | | | | | | [address] [place] | | | | | | [place] [address] | | | | | | [phone] | | | | | | | | +--------+ + + + + | 12/20/ | Office | Otolaryngology | Ulysses Genao MD | | | 2019 | Visit | | [address] | | | | | | [address] [place], | | | | | | [place] [address] | | | | | | [phone] | | | | | | | | +--------+ + + + + documented as of this encounter Procedures + +--------+ + + + | Procedure Name | Priori | Date/Time | Associated Diagnosis | Comments | | | ty | | | | + +--------+ + + + | DIAGNOSTIC REPORT - | | 12/20/2018 | | Results for this | | EXTERNAL SCAN | | 12:00 AM | | procedure are in the | | | | PDT | | results section. | + +--------+ + + + documented in this encounter Results DIAGNOSTIC REPORT - EXTERNAL SCAN (12/20/2018 12:00 AM PDT) + + + | Narrative | Performed At | + + + | Ordered by an | | | unspecified provider. | | + + + documented in this encounter Visit Diagnoses + + | Diagnosis | + + | Sensorineural hearing loss (SNHL) of both ears - Primary | + + | Dizziness and giddiness | + + documented in this encounter"
--- OUTSIDE RECORDS SUMMARY | ~2019-10-16 | XMS | Encounter Summary ---
Demographics + + + | Address | [address] | | | [place] [address] | + + + | Home Phone | | + + + | Preferred Language | Unknown | + + + | Marital Status | | + + + | Catholic Affiliation | 1001 | + + + [...] Team Providers + +------+ + | Care Scrap Hooker Name | Role | Phone | + +------+ + | Petrona Thapa | PCP | | | MD | | | + +------+ + Reason for Visit + + + | Reason | Comments | + + + | Medication Refill | | + + + Encounter Details +--------+--------+ + + + | Date | Type | Department | Care Team | Description | +--------+--------+ + + + | 03/25/ | Refill | [facility] | Alanis, | Medication Refill | | 2016 | | MEDICINE [address] [place] [address] | MD Petrona | | | | | [facility] | [address] [place] [address] | | | | | [place] [address] | [place] [address] | | | | | [phone] | [phone] | | | | | | | [...] | | | | | | [place] [address] | | | | | | [phone] | | | | | | | | +--------+ + + + + | 12/20/ | Office | Audiology | DarioElisabet ramires MS | | | 2019 | Visit | | [facility] [address] | | | | | | [address] [place] | | | | | | [place], [place] [address] | | | | | | [phone] | | | | | | | | +--------+ + + + + | 12/20/ | Office | Otolaryngology | Ulysses Genao MD | | | 2019 | Visit | | [address] | | | | | | [address] [place], | | | | | | [place] [address] | | | | | | [phone] | | | | | | | | +--------+ + + + + documented as of this encounter Visit Diagnoses Not on filedocumented in this encounter"
--- OUTSIDE RECORDS SUMMARY | ~2019-10-16 | XMS | Encounter Summary ---
Demographics + + + | Address | [address] | | | [place] [address] | + + + | Home Phone [...] Author + + + | Author | [facility] | + + + | Organization | [facility] | + + + | Address | Unknown | + + + | Phone | Unavailable | + + + Support + + +---------+ + | Name | Relationship | Address | Phone | + + +---------+ + | rSee Wells | ECON | Unknown | | + + +---------+ + | Marco Antonio Wells | ECON | Unknown | | + + +---------+ + Care Team Providers + +------+ + | Care Wood Mechanist Name | Role | Phone | + +------+ + | Pedrito Gutierrez MD | PCP | | + +------+ + Reason for Visit + + + | Reason | Comments | + + + | Back pain | both legs | + + + Encounter Details +--------+---------+ + + + | Date | Type | Department | Care Team | Description | +--------+---------+ + + + | 11/11/ | Office | [facility] | Delfina Molina, | Spondylosis with | | 2006 | Visit | Pain Center at | ANP | Myelopathy, Lumbar | | | | [facility] | | Region; Left Knee | | | | [address] | | Pain; Right Hip | | | | Mailcode: [id number] | | Region Pain; Opioid | | | | [facility] | | Dependence, | | | | and Healing, | | Continuous ([facility]); | | | | Building | | Major Depressive | | | | Floor [place], [place] | | Disorder, Recurrent | | | | [address] | | Episode, Moderate | | | | [phone] | | ([facility]); Adjustment | | | | | | Disorder with | | | | | | Anxiety; Herniated | | | | | | Lumbar | | | | | | Intervertebral Disc | | | | | | L4-5; Fibromyalgia | | | | | | syndrome 729.1 | +--------+---------+ + + + Social History [...] + + + | Blood Pressure | 110/76 | 11/11/2006 9:29 AM | | | | | PDT | | + + + + + | Pulse | 66 | 11/11/2006 9:29 AM | | | | | PDT | | + + + + + | Temperature | 37.2 C (98.9 F) | 11/11/2006 9:29 AM | | | | | PDT | | + + + + + | Respiratory Rate | 16 | 11/11/2006 9:29 AM | | | | | PDT | | + + + + + | Oxygen Saturation | - | - | | + + + + + | Inhaled Oxygen | - | - | | | Concentration | | | | + + + + + | Weight | 91.7 kg (202 lb 1.6 | 11/11/2006 9:29 AM | | | | oz) | PDT | | + + + + + | Height | 175.3 cm (5' 9") | 11/11/2006 9:29 AM | | | | | PDT | | + + + + + | Body Mass Index | 29.84 | 11/11/2006 9:29 AM | | | | | PDT | | + + + + + documented in this encounter Patient Instructions Patient Instructions Delfina Molina - 11/11/2006 9:51 AM PDT1. Continue with PT and psych ology 2. Continue with current medication therapy 3. Follow up in 4 weeks documented in this encounter Progress Notes Delfina Molina - 11/11/2006 9:50 AM PDTFormatting of this note might be different from lesli gomez. 11/11/2006 Belinda Molly Meehan is a 46 y.o. female [facility] Return Visit Chief Complaint: Chief Complaint Patient presents with Back pain both legs History of Present Illness: Belinda Meehan is a 46 y.o. year-old female with a history of chronic pain due to degenrative spine joint disease and fibromyalgia. Belinda Meehan is here today for a follow up visit. Since prior visit this condition has improved since last visit 10/23/06. She does have a new pain complaint bone spur in the rig ht heel. Ms. Faith completed the Brief Pain Inventory and a pain drawing which I reviewed. Her current pain is 9/10. Lower back and right leg The pain is burning in center with radiation pain into outer right leg, she describes it as "nails put into legs". Trileptal not help with lower leg but is helping with the neck pain . Leg shooting sometimes needles Shoulder and abdominal pain 100% resolved Has not had a headache in two weeks, with combination therapy - opioids and trileptal The pain is made better by resting, medications and physical therapy, relaxation and DBT. The back pain is made worse by the end of the day, prolonged sitting, climbing hills. New treatment since her last visit includes thyroid replacement dx by encorinology with hyp othyroidism has not seen any change in her myalgia. Mood and sleep : depression and sleep unchanged since prior visit, excited about her grandlaurita zhang visiting for two weeks. 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 Expectations for this visit include continue with current treatement, she asked for my opin ion on a surgical opinion on her back. Has not seen neurology for headaches assessment as h er PCP has not written the aurthorization. Hx of series of three ELIANA lasted for two weeks at the most. There have been no other change in past surgical history, family history, or social history since last visit. Bilateral leg swelling ED visit. Dr. Ibarra declined left knee replacement Injection in hips pending and second on knee replacement Started thyroid replacement: hypothyroidism Bone spur on right heel - authorizer last week, insurance [place] for U/S Current outpatient prescriptions Medication Sig Dispense Refill LEVOTHYROXINE OR takes .05mg daily Oxcarbazepine (TRILEPTAL) 150 mg OR TABS tab one po twice a day Fentanyl 25 mcg/hr TD PT72 apply 1 patch (25mcg/h) by transdermal route every 72 hours 10 0 Hydrocodone-Acetaminophen (NORCO) 10-325 mg OR TABS take 1 tablet by oral route every 4 -6 hours as needed for pain NTE 3 per day 90 0 Furosemide (LASIX) 80 mg OR TABS take [...] effects: denies Past Medical History Diagnosis Date CHRONIC ABDOMINAL PAIN on Oxycodone, NSAIDs, ASA RUQ u/s at OSH reportedly nl panc, bile ducts, liver; ct abd/pel normal, KIDNEY STONE 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 2005 endoscopy VERTEBRAL FRACTURE T7,8,9 Xray T spine 2003 OPTIC NERVE HEMORRHAGE left eye Past Surgical History Procedure Date Gastric bypass Mayra Padgett wt 278 01/18 Paniculectomy Hx cholecystectomy Hx hysterectomy Hx salpingo-oophorectomy Colonoscopy 03/2006 Hx tonsillectomy Pr d&c after delivery Pr inject trigger point, 1 or 2 Family History Problem Relation Cancer Mother Heart Father Additional Family History Father Migraine Additional Family History Mother Migraine Review of Systems: Bones, Joints, and Muscles: joint pain, muscle pain, stiffness and swelling Gastrointestinal System: negative Genitourinary System: urinary incontinence Nervous System: numbness and weakness Psychiatric History: depressed mood, sleep disturbance and decreased energy Physical examination: BP 110/76 | Pulse 66 | Temp (Src) 98.9 F (37.2 C) (Oral) | Resp 16 | Ht 1.753 m (5' 9") | Wt 91.672 kg (202 lbs 1.6 oz) Body mass index is 29.84 kg/(m^2). General appearance: Alert in no acute distress, crutches, sunburned, Impression: 721.42 Spondylosis with Myelopathy, Lumbar Region 719.46J Left Knee Pain 719.45F Right Hip Region Pain 304.01B Opioid Dependence, Continuous 296.32 Major Depressive Disorder, Recurrent Episode, Moderate 309.24 Adjustment Disorder with Anxiety 722.10H Herniated Lumbar Intervertebral Disc L4-5 729.1 Fibromyalgia syndrome 729.1 Belinda has been gradually improving with some of her chronic pain complaints, she has had r esolution of her abdominal, right shoulder and neck pain and reports having less headaches, she has not had her neurology assessment yet, I would still like this to happen. She stable on her current pain medications which are benefiting her without adverse effects. I would l temo her to continue with PT and pain psychology, address her lower back pain, that might not improve well unless her knee pain improves. No interventional pain management planned for. Belinda Meehan was compliant with all aspects of chronic opioid therapy , is using the me dication as directed, demonstrates benefits, and has no serious adverse effects. There were no significant cognitive or mood impairments. There is no evidence of diversion past or pre sent. Recommendations/Plan: total 30 minute visit with greater than 50% spent in reviewing the progress notes, imaging and counselling/education of the patient. Pateint instructed to continue with the followin. Trileptal 150mg bid 2. Fentanyl patch 25mcg/hr Q72hr 3. [place] 10/325 NTE 4 per day 4 Continue with PT and ask to address back, knee and hip pain consider pool therapy and dev elopment of IHEP in a pool program 5. Continue with pain psychology 6. We discuss her questions re surgery options for her back, I mention how surgery was not something I would recommend and it would not necessarily mprove her back pain, it may help w ith her radicular pain. I told her it would be reasonable for her to get a neurosurgical opi nion and referral through Dr. Gutierrez's office. 7. Follow up in 4 weeks or sooner if needed. DELFINA MOLINA [facility] Center Mail code CH 4P [facility] [address] [facility] [address] Tasha Can - 11/11/2006 9:29 AM PDTCMA History: PMH/PSH/SH/FH review 1. Has your pain changed from your last visit? no change 2. Do you have any new weakness or decrease in sensation? no 3. Do you have any difficulty with urination? No 4. How often do you have a bowel movement? once daily 5. Are you having difficulties with sexual function? Not applicable 6. Do your medications cause any side effects? no 7. Have you had physical therapy appointments since your last visit? Yes start on the 24 of november 8. Have you had psychology appointments since your last visit? no 9. Have you had any diagnostic studies since your last appointment? no 10. Do you require any medication refills today? no documented in this encounter Plan of Treatment Not on filedocumented as of this encounter Visit Diagnoses + + | Diagnosis | + + | Spondylosis with myelopathy, lumbar region | + + | Left Knee Pain Pain in joint, lower leg | + + | Right Hip Region Pain Pain in joint, pelvic region and thigh | + + | Opioid dependence, continuous (HCC) Opioid type dependence, continuous | + + | Major depressive disorder, recurrent episode, moderate (HCC) Major depressive | | disorder, recurrent episode, moderate | + + | Adjustment disorder with anxiety | + + | Herniated Lumbar Intervertebral Disc L4-5 Displacement of lumbar intervertebral disc | | without myelopathy | + + | Fibromyalgia syndrome 729.1 Mylagia and myositis, unspecified | + + documented in this encounter
--- OUTSIDE RECORDS SUMMARY | ~2019-10-16 | XMS | Encounter Summary ---
Demographics + + + | Address | [address] | | | [place] [address] | + + + | Home Phone | | + + + | Preferred Language | Unknown | + + + | Marital Status | | + + + | Advent Affiliation | 1001 | + + + | Race | Unknown | + + + | Ethnic Group | Unknown | + + + Author + + + | Author | [facility] | | | and Jairana | + + + | Organization | [facility] | | [...] Team Providers + +------+ + | Care Arc Cutter Plasma Arc Name | Role | Phone | + +------+ + | Petrona Thapa | PCP | | | MD | | | + +------+ + Encounter Details +--------+ + + + + | Date | Type | Department | Care Team | Description | +--------+ + + + + | 02/23/ | Hospital | [facility] | [place] | Right shoulder pain, | | 2018 | Encounter | [facility] | MD [address] | unspecified | | | | [address] [place] | [address] [place] | chronicity | | | | [place] | [place] [address] | | | | | [address] | [phone] | | | | | [phone] | | | +--------+ + + + [...] + + + +---------+ + + | ascorbic acid | Take 500 mg by mouth | | 0 | | | | (VITAMIN C) 500 mg | Daily. | | | | | | tablet | | | | | | + + + +---------+ + + | cholecalciferol | Take 5,000 Units by | | 0 | | | | (VITAMIN D-3) 5000 | mouth Daily. | | | | | | UNITS TABS | | | | | | + + + +---------+ + + | COMBIGAN 0.2-0.5 % | | | 0 | 02/14/20 | | | ophthalmic solution | | | | 18 | | + + + +---------+ + + | | Take 1 tablet by | | 0 | | | | HYDROcodone-acetamin | mouth every 4 hours | | | | | | ophen (NORCO) 10-325 | as needed for Pain. | | | | | | mg per tablet | | | | | | + + + +---------+ + + | Multiple | 1 tablet by mouth | | 0 | 02/29/20 | | | Vitamins-Minerals | twice daily | | | 12 | | | (COMPLETE WOMENS) | | | | | | | TABS | | | | | | + + + +---------+ + + | zoledronic acid | Inject 5 mg into the | | 0 | | | | (RECLAST) 5 mg/100 | vein once. YEARLY | | | | | | mL SOLN | | | | | | + + + +---------+ + + | betaxolol 0.5% | Place 1 drop into | | 0 | | | | ophthalmic | both eyes 2 times | | | | 9 | | suspension | daily. | | | | | + + + +---------+ + + | Calcium Carbonate | TABS: 1 tablet by | | 0 | 02/29/20 | | | (CALTRATE 600 PO) | mouth four times a | | | 12 | 9 | | | day | | | | | + + + +---------+ + + | clobetasol | apply topically to | | 0 | 01/01/20 | | | (TEMOVATE) 0.05% | affected area twice | | | 17 | 9 | | cream | a day | | | | | + + + +---------+ + + | | Take 1 tablet by | 120 | 5 | 01/16/20 | | | diphenoxylate-atropi | mouth 4 times daily | tablet | | 18 | 8 | | ne (LOMOTIL) | as needed for | | | | | | 2.5-0.025 mg per | Diarrhea. | | | | | | tabletIndications: | | | | | | | Chronic diarrhea, | | | | | | | S/P bariatric | | | | | | | surgery | | | | | | + + + +---------+ + + | fluticasone | 1 spray by Nasal | 9.9 mL | 5 | 07/16/19 | | | (FLONASE) 50 | route 2 times daily. | | | 18 | 9 | | mcg/nasal | | | | | | | sprayIndications: | | | | | | | Chronic allergic | | | | | | | rhinitis due to | | | | | | | other allergic | | | | | | | trigger, unspecified | | | | | | | seasonality | | | | | | + + + +---------+ + + | furosemide (LASIX) | take 1 tablet by | 180 | 1 | 01/02/20 | | | 80 mg tablet | mouth twice a day | tablet | | 18 | 8 | + + + +---------+ + + | gabapentin | Take 3 capsules by | 270 | 3 | 01/16/20 | | | (NEURONTIN) 300 mg | mouth 3 times daily. | capsule | | 18 | 9 | | capsuleIndications: | | | | | | | Chronic bilateral | | | | | | | low back pain | | | | | | | without sciatica | | | | | | + + + +---------+ + + | levothyroxine | take 1 tablet by | 90 | 2 | 02/05/20 | | | (SYNTHROID) 75 MCG | mouth every morning | tablet | | 18 | 9 | | tablet | BEFORE BREAKFAST | | | | | + + + +---------+ + + | meclizine | take 1 tablet by | | 0 | 01/01/20 | | | (ANTIVERT) 25 mg | mouth three times a | | | 17 | 8 | | tablet | day if needed for | | | | | | | dizziness | | | | | + + + +---------+ + + | methocarbamol | take 1 tablet by | 60 | 3 | 05/04/20 | 05/06/201 | | (ROBAXIN) 750 mg | mouth twice a day | tablet | | 17 | 9 | | tabletIndications: | | | | | | | Muscle spasm | | | | | | + + + +---------+ + + | metoprolol | take 1/2 tablet by | 30 | 3 | 02/25/20 | | | tartrate (LOPRESSOR) | mouth twice a day | tablet | | 18 | 9 | | 25 mg tablet | | | | | | + + + +---------+ + + | naloxone (NARCAN) | Inject 1 mL under | 1 mL | 4 | 01/14/20 | | | 0.4 mg/mL injection | the skin as needed | | | 18 | 9 | | | for Apnea or | | | | | | | Decreased | | | | | | | Responsiveness. | | | | | + + + +---------+ + + | nitroglycerin | Place 1 tablet under | 25 | 3 | 09/23/19 | | | (NITROSTAT) 0.4 mg | the tongue every 5 | tablet | | 18 | 9 | | SL | minutes as needed | | | | | | tabletIndications: | for Chest pain. | | | | | | Chest pain, | | | | | | | unspecified type | | | | | | + + + +---------+ + + | omeprazole | take 1 capsule by | 180 | 1 | 04/28/20 | | | (PRILOSEC) 20 mg | mouth twice a day | capsule | | 17 | 8 | | capsule | | | | | | + + + +---------+ + + | ondansetron | Take 1 tablet by | 120 | 3 | 10/16/19 | | | (ZOFRAN ODT) 4 mg | mouth every 6 hours. | tablet | | 18 | 8 | | disintegrating | | | | | | | tabletIndications: | | | | | | | Nausea | | | | | | + + + +---------+ + + | potassium chloride | take 3 tablets by | 450 | 1 | 01/21/20 | | | (KLOR-CON M20) 20 | mouth every morning | tablet | | 18 | 8 | | mEq ER tablet | and 2 every evening | | | | | | | with food | | | | | + + + +---------+ + + | sucralfate | Take 1 tablet by | 120 | 1 | 02/19/20 | | | (CARAFATE) 1 g | mouth 4 times daily | tablet | | 18 | 9 | | tablet | as needed. | | | | | + + + +---------+ + + | topiramate | take 2 tablets by | 228 | 5 | 03/30/20 | | | (TOPAMAX) 50 MG | mouth every 12 hours | tablet | | 17 | 8 | | tablet | for MIGRAINE | | | | | | | PREVENTION | | | | | + + + +---------+ + + | torsemide | take 1 tablet by | 25 | 5 | 12/29/19 | | | (DEMADEX) 5 mg | mouth 5 TIMES A WEEK | tablet | | 18 | 9 | | tablet | | | | | | + + + +---------+ + + | travoprost | 1 drop nightly. | | 0 | | | | (TRAVATAN Z) 0.004% | | | | | 9 | | ophthalmic solution | | | | | | + + + +---------+ + + | UNABLE TO | CPAP Mask | 400 | 5 | 10/16/19 | | | FINDIndications: OLIVER | | each | | 18 | 8 | | (obstructive sleep | | | | | | | apnea) | | | | | | + [...] | | | | | [place] [address] | | | | | | [phone] | | | | | | | | +--------+ + + + + | 12/20/ | Office | Audiology | Elisabet Munson MS | | | 2019 | Visit | | [facility] | | | | | | [place] | | | | | | [place] [address] | | | | | | [phone] | | | | | | | | +--------+ + + + + | 12/20/ | Office | Otolaryngology | Genao, Ulysses E, MD | | | 2020 | Visit | | [address] [place] | | | | | | [address] [place], | | | | | | [place] [address] | | | | | | [phone] | | | | | | | | +--------+ + + + + documented as of this encounter Procedures + +--------+ + + + | Procedure Name | Priori | Date/Time | Associated Diagnosis | Comments | | | ty | | | | + +--------+ + + + | XR SHOULDER RIGHT 1 | Routin | 02/23/2018 | Right shoulder | Results for this | | VW | e | 1:04 PM | pain, unspecified | procedure are in the | | | | PDT | chronicity | results section. | + +--------+ + + + documented in this encounter Results XR Shoulder Right 1 Vw (02/23/2018 1:04 PM PDT) + + | Specimen | + + | | + + + + + | Narrative | Performed At | + + + | XR SHOULDER RIGHT 1 VW 02/23/2018 1:04 PM HISTORY: SHOULDER PAIN. | [facility] | | COMPARISON: Multiple priors. FINDINGS: Axillary view of the | | | right shoulder shows no acute findings. Degenerative cysts are in the | | | humeral head. There are mild degenerative changes of the AC joint. | | | The glenohumeral joint is intact. Bone mineralization is normal. Soft | | | tissues are unremarkable. IMPRESSION - Degenerative changes as | | | described above. Dictated and Signed by: Sarath Avila MD | | | Electronically signed: 02/23/2018 2:15 PM | | + + + + + | Procedure Note | + + | Tawanda, Rad Results In - 02/23/2018 2:18 PM PDT XR SHOULDER RIGHT 1 VW 02/23/2018 1:04 | | PMHISTORY: SHOULDER PAIN.COMPARISON: Multiple priors.FINDINGS:Axillary view of the right | | shoulder shows no acute findings. Degenerative cystsare in the humeral head. There are | | mild degenerative changes of the AC joint.The glenohumeral joint is intact. Bone | | mineralization is normal. Soft tissuesare unremarkable.IMPRESSION -Degenerative changes | | as described above.Dictated and Signed by: Sarath Avila MD Electronically signed: | | 02/23/2018 2:15 PM | |Axillary view of the right shoulder shows no acute findings. Degenerative cysts | |are in the humeral head. There are mild degenerative changes of the AC joint. | |The glenohumeral joint is intact. Bone mineralization is normal. Soft tissues | |are unremarkable. | | | |IMPRESSION - | |Degenerative changes as described above. | | | |Dictated and Signed by: Sarath Avila MD | | Electronically signed: 02/23/2018 2:15 PM | + + + +---------+ + + | Performing | Address | City/State/Zipcode | Phone Number | | Organization | | | | + +---------+ + + | [facility] | | | | + +---------+ + + documented in this encounter Visit Diagnoses + + | Diagnosis | + + | Right shoulder pain, unspecified chronicity | + + documented in this encounter"
--- OUTSIDE RECORDS SUMMARY | ~2019-10-16 | XMS | Encounter Summary ---
Demographics + + + | Address | [address] | | | [place] [address] | + + + | Home Phone | | + + + | Preferred Language | Unknown | + + + | Marital Status | | + + + | Anabaptism Affiliation | 1001 | + + + | Race | Unknown | + + + | Ethnic Group | Unknown | + + + Author + + + | Author | [facility] | | | and Jairana | + + + | Organization | [facility] | | | [...] Team Providers + +------+ + | Care Organ Builder Name | Role | Phone | + [...] | Specialty | Physical | Diagnoses | | [place], | | | Services | Medicine and | Chronic | Emmy[place]Tajt | Carlos Armijo MD | | | Required | Rehabilitatio | bilateral | i, | [address] | | | | n | low back | [address] | [address] [place] | | | | | pain without | [address] | [place] | | | | | sciatica | [address] | [address] Phone: | | | | | | [place], | [phone] | | | | | | [place] | Fax: | | | | | | [address] | [phone] | | | | | | Phone: | | | | | | | [phone] | | | | | | | Fax: | | | | | | | [phone] | | +--------+ + + + + + Reason for Visit + + + | Reason | Comments | + + + | Medication Orders | | + + + Encounter Details +--------+ + + + + | Date | Type | Department | Care Team | Description | +--------+ + + + + | 07/15/ | Telephone | [facility] | Alanis, | Medication Orders | | 2018 | | MEDICINE [address] [place] [address] | MD Petrona | | | | | [facility] | [address] [place] [address] | | | | | [place] [address] | [place] [address] | | | | | [phone] | [phone] | | | | | | | [...] | | | | | [place] [address] | | | | | | [phone] | | | | | | | | +--------+ + + + + | 12/20/ | Office | Audiology | Elisabet Munson | | | 2019 | Visit | | [facility] [address] | | | | | | [address] [place] | | | | | | [place] [address] | | | | | | [phone] | | | | | | | | +--------+ + + + + | 12/20/ | Office | Otolaryngology | Ulysses Genao MD | | | 2019 | Visit | | [address] [place] | | | | | | [address] [place], | | | | | | [place] [address] | | | | | | [phone] | | | | | | | | +--------+ + + + + + + +--------+ + + | Name | Type | Priori | Associated Diagnoses | Order Schedule | | | | ty | | | + + +--------+ + + | * [facility] | Outpatient | Routin | Chronic bilateral | Expected: | | Physiatry - AMB | Referral | e | low back pain | 07/19/2018, Expires: | | Referral | | | without sciatica | 07/19/2019 | + + +--------+ + + documented as of this encounter Visit Diagnoses + + | Diagnosis | + + | Chronic diarrhea - Primary Diarrhea | + + | Chronic bilateral low back pain without sciatica | + + documented in this encounter"
--- OUTSIDE RECORDS SUMMARY | ~2019-10-16 | XMS | Encounter Summary ---
Demographics + + + | Address | [address] | | | [place] [address] | + + + | Home Phone | | + + + | Preferred Language | Unknown | + + + | Marital Status | | + + + | Buddhism Affiliation | 1001 | + + + [...] Team Providers + +------+ + | Care Inspector Hot Forgings Name | Role | Phone | + [...] Description | +--------+--------+ + + + | 09/30/ | Refill | [facility] | Alanis, | Medication Refill | | 2018 | | MEDICINE [address] [place] [address] | MD Petrona | | | | | [facility] | [address] [place] [address] | | | | | [place] [address] | [place] [address] | | | | | [phone] | [phone] | | | | | | | [...] | | | | | | [place] [address] | | | | | | [phone] | | | | | | | | +--------+ + + + + | 12/20/ | Office | Audiology | DarioElisabet ramires MS | | | 2019 | Visit | | [facility] [address] | | | | | | [address] [place] | | | | | | [place], [place] [address] | | | | | | [phone] | | | | | | | | +--------+ + + + + | 12/20/ | Office | Otolaryngology | Ulysses Genao MD | | | 2019 | Visit | | [address] [place] | | | | | | [address] [place], | | | | | | [place] [address] | | | | | | [phone] | | | | | | | | +--------+ + + + + documented as of this encounter Visit Diagnoses Not on filedocumented in this encounter"
--- OUTSIDE RECORDS SUMMARY | ~2019-10-16 | XMS | Encounter Summary ---
Demographics + + + | Address | [address] | | | [place] [address] | + + + | Home Phone | | + + + | Preferred Language | Unknown | + + + | Marital Status | | + + + | Hoahaoism Affiliation | 1001 | + + + | Race | Unknown | + + + | Ethnic Group | Unknown | + + + Author + + + | Author | [facility] | | | and Jairana | + + + | Organization | [facility] | | | and [...] Team Providers + +------+ + | Care Demi Chef Name | Role | Phone | + [...] + + | 07/17/ | Telephone | [facility] | Alanis, | Medical Problem | | 2017 | | MEDICINE [address] [place] [address] | MD Petrona | | | | | [facility] | [address] [place] [address] | | | | | [place] [address] | [place] [address] | | | | | [phone] | [phone] | | | | | | | [...] | | | | | | [place] [address] | | | | | | [phone] | | | | | | | | +--------+ + + + + | 12/20/ | Office | Audiology | Ceasar MunsonahMS | | | 2019 | Visit | | [facility] [address] | | | | | | [address] [place] | | | | | | [place] [address] | | | | | | [phone] | | | | | | | | +--------+ + + + + | 12/20/ | Office | Otolaryngology | Ulysses Genao MD | | | 2019 | Visit | | [address] [place] | | | | | | [address] [place], | | | | | | [place] [address] | | | | | | [phone] | | | | | | | | +--------+ + + + + documented as of this encounter Visit Diagnoses Not on filedocumented in this encounter"
--- OUTSIDE RECORDS SUMMARY | ~2019-10-16 | XMS | Encounter Summary ---
Demographics + + + | Address | [address] | | | [place] [address] | + + + | Home Phone | | + + + | Preferred Language | Unknown | + + + | Marital Status | | + + + | Latter Day Affiliation | 1001 | + + + | Race | Unknown | + + + | Ethnic Group | Unknown | + + + Author + + + | Author | [facility] | | | and Jairana | + + + | Organization | [facility] | | | [...] Team Providers + +------+ + | Care Cover Stitch Machine Operator Name | Role | Phone | + +------+ + | Petrona Thapa | PCP | | | MD | | | + +------+ + Reason for Visit + + + | Reason | Comments | + + + | Follow-up | Hand infection is better now. | + + + | Other | Pain between shoulder blades | + + + Encounter Details +--------+---------+ + + + | Date | Type | Department | Care Team | Description | +--------+---------+ + + + | 02/15/ | Office | [facility] | Alanis, | Antibiotic-associate | | 2019 | Visit | MEDICINE [address] | MD Petrona | d diarrhea (Primary | | | | [address] [place] | [address] [facility] | Dx); longterm | | | | [place] [address] | [place] [address] | prescription opiate | | | | [phone] | [phone] | use; Seasonal | | | | | | allergic rhinitis | | | | | | due to pollen; Need | | | | | | for immunization | | | | | | against influenza; | | | | | | Mixed | | | | | | hyperlipidemia; | | | | | | Vitamin B 12 | | | | | | deficiency; Elevated | | | | | | liver enzymes | +--------+---------+ + + + Social History [...] + | Blood Pressure | 100/60 | 02/15/2019 9:44 AM | | | | | PDT | | + + + + + | Pulse | 55 | 02/15/2019 9:44 AM | | | | | PDT | | + + + + + | Temperature | 36.6 C (97.9 F) | 02/15/2019 9:44 AM | | | | | PDT | | + + + + + | Respiratory Rate | 16 | 02/15/2019 9:44 AM | | | | | PDT | | + + + + + | Oxygen Saturation | 96% | 02/15/2019 9:44 AM | | | | | PDT | | + + + + + | Inhaled Oxygen | - | - | | | Concentration | | | | + + + + + | Weight | 91.3 kg (201 lb 4.5 | 02/15/2019 9:44 AM | | | | oz) | PDT | | + + + + + | Height | - | - | | + + + + + | Body Mass Index | 30.6 | 01/17/2019 9:53 AM | | | | | PDT | | + + + + + documented in this encounter Progress Notes Maggie Montoya LPN - 02/15/2019 9:30 AM PDT Vitamin B12 1000 mcg given IM right deltoid Flu vac given IM left deltoid. Patient tolerated injections well documented in this enc ounter Plan of Treatment +--------+ + + + [...] | | | | | [place] [address] | | | | | | [phone] | | | | | | | | +--------+ + + + + | 12/20/ | Office | Audiology | Elisbaet Munson MS | | | 2019 | Visit | | [facility] [address] | | | | | | [address] [place] | | | | | | [place] [address] | | | | | | [phone] | | | | | | | | +--------+ + + + + | 12/20/ | Office | Otolaryngology | Ulysses Genao MD | | | 2019 | Visit | | [address] [place] | | | | | | [address] [place], | | | | | | [place] [address] | | | | | | [phone] | | | | | | | | +--------+ + + + + + +---------+--------+ + + | Name | Type | Priori | Associated Diagnoses | Order Schedule | | | | ty | | | + +---------+--------+ + + | US Abdomen Limited | Imaging | Routin | Elevated liver | Expected: | | | | e | enzymes | 02/15/2019, Expires: | | | | | | 02/16/2020 | + +---------+--------+ + + documented as of this encounter Results Comprehensive Metabolic Panel (02/15/2019 10:48 AM PDT) + + + + + + | Component | Value | Ref Range | Performed | Pathologist | | | | | At | Signature | + + + + + + | Na | 143 | 136 - 145 | [facility] | | | | | mmol/L | [facility] | | | | | [facility] | | | | | | [facility] - | | | | | | LABORATORY | | + + + + + + | K | 4.7 | 3.4 - 5.1 | [facility] | | | | | mmol/L | [facility] | | | | | | [facility] | | | | | | [facility] - | | | | | | LABORATORY | | + + + + + + | Cl | 109 (H) | 98 - 107 mmol/L | [facility] | | | | | | [facility] | | | [facility] | | [facility] | | | | | | [facility] - | | | | | | LABORATORY | | + + + + + + | CO2 | 32 (H) | 20 - 31 mmol/L | [facility] | | | | | | [facility] | [facility] | [facility] | | | | | | [facility] - | | | | | | LABORATORY | | + + + + + + | Anion Gap | 2 (L) | 3 - 16 mmol/L | [facility] | | | | | | [facility] | | | | | | [facility] | | | | | | [facility] - | | | | | | LABORATORY | | + + + + + + | Glucose | 97 | 60 - 106 mg/dL | [facility] | | | | | | [facility] | | | | | | [facility] | | | | | | [facility] - | | | | | | LABORATORY | | + + + + + + | BUN | 10 | 9 - 23 mg/dL | [facility] | | | | | | [facility] | | | | | | [facility] | | | | | | C[facility] - | | | | | | LABORATORY | | + + + + + + | Creatinine | 0.87 | 0.55 - 1.02 | [facility] | | | | | mg/dL | [facility] | | [facility] | | [facility] | | | | | | C[facility] - | | | | | | LABORATORY | | + + + + + + | eGFR if not | >60Comment: GLOMERULAR | >=60 | [facility] | | | | FILTRATION | mL/min/1.73m2 | [facility] | | | TURKISH | RATE,ESTIMATED | | MEDICAL | | | | mL/min/1.98b6Ziqt than | | CENTER - | | | | 60 Chronic kidney | | LABORATORY | | | | disease,if found over a | | | | | | 3-month period.Less than | | | | | | 15 Kidney failureFor | | | | | | | | | | | | Americans,multiply the | | | | | | calculated GFR by 1.21. | | | | | | | | | | + + + + + + | Calcium | 9.8 | 8.7 - 10.4 | [facility] | | | | | mg/dL | [facility] | | | | | | [facility] | | | | | | CENTER - | | | | | | LABORATORY | | + + + + + + | Albumin | 4.4 | 3.2 - 4.8 g/dL | [facility] | | | | | | [facility] | | | | | | [facility] | | | | | | [facility] - | | | | | | LABORATORY | | + + + + + + | Bilirubin | 0.4 | 0.3 - 1.2 mg/dL | [facility] | | | Total | | | [facility] | | | | | | [facility] | | | | | | CENTER - | | | | | | LABORATORY | | + + + + + + | Total | 6.5 | 5.7 - 8.2 g/dL | [facility] | | | Protein | | | [facility] | | | | | | [facility] | | | | | | CENTER - | | | | | | LABORATORY | | + + + + + + | AST | 59 (H) | 0 - 34 U/L | [facility] | | | | | | [facility] | | | | | | [facility] | | | | | | C[facility] - | | | | | | LABORATORY | | + + + + + + | ALT | 61 (H) | 10 - 49 U/L | [facility] | | | | | | [facility] | | | | | | [facility] | | | | | | CENTER - | | | | | | LABORATORY | | + + + + + + | Alkaline | 96 | 46 - 116 U/L | [facility] | | | Phosphatase | | | [facility] | | [facility] | | | [facility] | | | | | | C[facility] - | | | | | | LABORATORY | | + + + + + + | Globulin | 2.1 | 2.1 - 3.8 g/dL | [facility] | | | | | | [facility] | | | | | | [facility] | | | | | | [facility] - | | | | | | LABORATORY | | + + + + + + | Albumin/Flor | 2.1 (H) | 0.8 - 1.9 | [facility] | | | bulin Ratio | | | [facility] | | | | | | [facility] | | | | | | CENTER - | | | | | | LABORATORY | | + + + + + + | BUN/Creatin | 11.5 | | [facility] | | | ine Ratio | | | [facility] | | | | | | [facility] | | | | | | CENTER - | | | | | | LABORATORY | | + + + + + + + + | Specimen | + + | Blood | + + + + + + + | Performing | Address | City/State/Zipcode | Phone Number | | Organization | | | | + + + + + | [facility] | [address] | [place], [place] | [phone] | | [facility] | | [address] | | | - LABORATORY | | | | + + + + + Lipid Panel (02/15/2019 10:48 AM PDT) + +-------+ + + + | Component | Value | Ref Range | Performed | Pathologist | | | | | At | Signature | + +-------+ + + + | Triglycerid | 103 | <=150 mg/dL | [facility] | | | es | | | [facility] | | | | | | [facility] | | | | | | CENTER - | | | | | | LABORATORY | | + +-------+ + + + | Cholesterol | 145 | <=200 mg/dL | [facility] | | | | | | [facility] | | | | | | [facility] | | | | | | [facility]ENTER - | | | | | | LABORATORY | | + +-------+ + + + | HDL | 50 | 40 - 60 mg/dL | [facility] | | | | | | [facility] | | | | | | [facility] | | | | | | [facility]ENTER - | | | | | | LABORATORY | | + +-------+ + + + | Chol/HDL | 2.9 | | [facility] | | | Ratio | | | [facility] | | | | | | [facility] | | | | | | CENTER - | | | | | | LABORATORY | | + +-------+ + + + | LDL, | 74 | <=130 mg/dL | [facility] | | | Calculated | | | [facility] | | | | | | MEDICAL | | | | | | CENTER - | | | | | | LABORATORY | | + +-------+ + + + + + | Specimen | + + | Blood | + + + + + + + | Performing | Address | City/State/Zipcode | Phone Number | | Organization | | | | + + + + + | [facility] | [address] | [place] | [phone] | | [facility] | | [address] | | | - LABORATORY | | | | + + + + + documented in this encounter Visit Diagnoses + + | Diagnosis | + + | Antibiotic-associated diarrhea - Primary Diarrhea | + + | longterm prescription opiate use | + + | Seasonal allergic rhinitis due to pollen | + + | Need for immunization against influenza Need for prophylactic vaccination and | | inoculation against influenza | + + | Mixed hyperlipidemia | + + | Vitamin B 12 deficiency Other B-complex deficiencies | + + | Elevated liver enzymes Nonspecific elevation of levels of transaminase or lactic acid | | dehydrogenase (LDH) | + + documented in this encounter Administered Medications + +--------+ +--------+------+ + | Medication Order | MAR | Action | Dose | Rate | Site | | | Action | Date | | | | + +--------+ +--------+------+ + | cyanocobalamin (VITAMIN B-12) | Given | 09/15/19 | 1,000 | | Deltoid- | | injection 1,000 mcg 1,000 mcg, | | 20 10:23 | mcg | | Right | | Intramuscular, EVERY 30 DAYS, | | AM PDT | | | | | First dose on [facility] 10/15/17 at 1215 | | | | | | + +--------+ +--------+------+ + +-------+ +--------+---+ + | Given | 08/15/19 | 1,000 | | Deltoid- | | | 20 9:20 | mcg | | Right | | | AM PST | | | | +-------+ +--------+---+ + | Given | 07/18/19 | 1,000 | | Deltoid- | | | 20 9:13 | mcg | | Left | | | AM PST | | | | +-------+ +--------+---+ + +---+---+ | | | +---+---+ documented in this encounter"
--- OUTSIDE RECORDS SUMMARY | ~2019-10-16 | XMS | Encounter Summary ---
Demographics + + + | Address | [address] | | | [place] [address] | + + + | Home Phone [...] Author + + + | Author | [facility] | + + + | Organization | [facility] | + + [...] Team Providers + +------+ + | Care Clinical Evaluator Name | Role | Phone | + [...] + + + | Closed | | Bone | Diagnoses | Constantino | Brandon Bone | | | | Densitometry | Osteopenia | MD Beto | Density [facility] | | | | | Procedures | [address] | [address] | | | | | CONSULT TO | Ave | Naeem Mcrae | | | | | BONE | [place], [place] | Rd Mailcode: | | | | | DENSITOMETRY | [address] | [id number] | | | | | | Phone: | Naeem De La Rosa | | | | | | [phone] | [place], [place] | | | | | | Fax: | [address] | | | | | | [phone] | Phone: | | | | | | | [phone] | | | | | | | Fax: | | | | | | | [phone] | +--------+--------+ + + + + Reason for Visit +--------+ + | Reason | Comments | +--------+ + | Other | | +--------+ + Encounter Details +--------+ + + + + | Date | Type | Department | Care Team | Description | +--------+ + + + + | 05/29/ | Telephone | Kraig Turner | Beto Meeks MD | Other | | 2007 | | [facility] | [address] | | | | | [facility] | [facility] [place] | | | | | [address] | [address] | | | | | [address] | [phone] | | | | | [facility] | | | | | | Physician's | | | | | | [facility] [place], | | | | | | [place] [address] | | | | | | [phone] | | | +--------+ + + + [...] + | Diagnosis | + + | Osteopenia - Primary Disorder of bone and cartilage, unspecified | + + documented in this encounter"
--- OUTSIDE RECORDS SUMMARY | ~2019-10-16 | XMS | Encounter Summary ---
Demographics + + + | Address | [address] | | | [place] [address] | + + + | Home Phone | | + + + | Preferred Language | Unknown | + + + | Marital Status | | + + + | Synagogue Affiliation | 1001 | + + + | Race | Unknown | + + + | Ethnic Group | Unknown | + + + Author + + + | Author | [facility] | | | and Jairana | + + + | Organization | [facility] | | | [...] Team Providers + +------+ + | Care Loading Supervisor Name | Role | Phone | [...] + + | 03/02/ | Telephone | [facility] | Alanis, | Lab Results | | 2017 | | MEDICINE [address] [place] [address] | MD Petrona | | | | | [facility] | [address] [place] [address] | | | | | [place] [address] | [place] [address] | | | | | [phone] | [phone] | | | | | | | [...] Petrona | | | | | | [facility] [address] | | | | | | [place] [address] | | | | | | [phone] | | | | | | | | +--------+ + + + + | 12/20/ | Office | Audiology | Elisabet Munson MS | | 2019 | Visit | | [facility] [address] | | | | | | [address] [place] | | | | | | [place] [address] | | | | | | [phone] | | | | | | | | +--------+ + + + + | 12/20/ | Office | Otolaryngology | Ulysses Genao MD | | | 2020 | Visit | | [address] | | | | | | [address] [place], | | | | | | [place] [address] | | | | | | [phone] | | | | | | | | +--------+ + + + + documented as of this encounter Visit Diagnoses Not on filedocumented in this encounter"
--- OUTSIDE RECORDS SUMMARY | ~2019-10-16 | XMS | Encounter Summary ---
Demographics + + + | Address | [address] | | | [place] [address] | + + + | Home Phone [...] Team Providers + +------+ + | Care Inbound Call Center Representative Name | Role | Phone | + [...]
--- OUTSIDE RECORDS SUMMARY | ~2019-10-16 | XMS | Encounter Summary ---
Demographics + + + | Address | [address] | | | [place] [address] | + + + | Home Phone [...] Author + + + | Author | [facility] | + + + | Organization | [facility] | + + + | Address | [...] Team Providers + +------+ + | Care Charge Poster Name | Role | Phone | + [...] | Closed | | | | | [facility] | | | | | | | General Surg | | | | | | | [address] | | | | | | | [address] | | | | | | | [place], | | | | | | | [place] | | | | | | | [address] | | | | | | | Phone: | | | | | | | [phone] | | | | | | | Fax: | | | | | | | [phone] | +--------+--------+ + + + + Encounter Details +--------+ + + + + | Date | Type | Department | Care Team | Description | +--------+ + + + + | 12/26/ | Hospital | [facility] [address] | Chris Ruano, | | | 2007 - | Encounter | [address] | MD [address] [facility] | | | | | [place], [place] | [address] | | | 12/30/ | | [address] | [place], [place] | | | 2007 | | [phone] | [address] | | | | | | [phone] | | | | | | | [...] + + + | Blood Pressure | 103/55 | 12/31/2007 6:33 AM | | | | | PDT | | + + + + + | Pulse | 65 | 12/31/2007 6:33 AM | | | | | PDT | | + + + + + | Temperature | 37 C (98.6 F) | 12/31/2007 6:33 AM | | | | | PDT | | + + + + + | Respiratory Rate | 18 | 12/31/2007 6:33 AM | | | | | PDT | | + + + + + | Oxygen Saturation | 94% | 12/31/2007 6:33 AM | | | | | PDT | | + + + + + | Inhaled Oxygen | - | - | | | Concentration | | | | + + + + + | Weight | 86.5 kg (190 lb 11.2 | 12/27/2007 6:00 AM | | | | oz) | PDT | | + + + + + | Height | 175.3 cm (5' 9") | 12/27/2007 3:59 PM | | | | | PDT | | + + + + + | Body Mass Index | 28.16 | 12/27/2007 6:00 AM | | | | | PDT | | + + + + + documented in this encounter Discharge Summaries Other, Faculty - 12/31/2007 1:56 PM PDT Other, Faculty - 12/31/2007 1:56 PM PDT Other, Faculty - 12/31/2007 1:56 PM PDT Joselyn Geoffrey - 12/31/2007 1:02 PM PDT INPATIENT PHYSICIAN DISCHARGE SUMMARY Author: GEOFFREY JOLLY MD Attending Physician: Chris Ruano PCP: Pedrito Gutierrez MD Admission Date: 12/27/2007 Discharge Date: 12/31/07 Principal Final Diagnosis: Abdominal pain and partial small bowel obstruction Additional Diagnoses: You or your family had the following procedures: Exploratory laparotomy and Lysis of adhesions Principal Procedure: Exploratory Laparotomy and Lysis of adhesions. Additional Procedures: Reason for Admission, Significant Findings, Treatment, and Complications Brief Hospital Course: Ms. Meehan is a 47-year-old woman who is post laparoscopic gastric bypass and subsequent panniculectomy who complains of 2 years of abdominal pain and intermittent nausea. She has had a diagnostic laparoscopy and was noted to have dense adhesions to her pelvis. Informed consent was obtained and she underwen t an exploratory laparotomy and lysis of adhesions. Please see operative notes for details. Post-operatively, she resumed her bowel function and was able to tolerate a regular bariatri c diet. She developed a cough with productive greenish sputum, but did not develop any blood in the sputum or fevers, chest pain Or shortness of breath. She stated that this is common for her after surgery. Currently she is in good condition, able to ambulate, eat, urinate a nd is having good bowel function. Diet: Regular bariatric diet Activity: No driving while taking pain medications, limit lifting to 10 lbs or less, shower ing is okay but no submerging underwater. Medications: CONTINUE these medications which have NOT CHANGED CALCIUM 600 WITH VITAMIN D OR ( 400 unit of Vit D) 1 tab 4 x daily Cyanocobalamin 1,000 mcg/mL Injection Syringe 1 inj q month Docusate Sodium 100 mg Oral Tablet take 1 tablet (100 mg) by oral route once daily at bedtime as needed Ferrous Sulfate 325 (65) mg Oral Tablet take 1 tablet (325 mg) by oral route 3 times per day Furosemide (LASIX) 80 mg OR TABS take 1 tablet (40mg) by oral route once daily levothyroxine 50 mcg Oral Tablet take 1 tablet (50 mcg) by oral route once daily Qty: 30 Refills: 12 Multivitamin Oral Tablet 1 tab po bid omeprazole magnesium (PRILOSEC OTC) 20 mg Oral Tablet, Delayed Release (E.C.) take 1 tablet by mouth twice daily Oxycodone HCl (OXYCONTIN) 40 mg Oral Tablet Sustained Release 12 hr take 1 tablet (40mg) by mouth every 12 hours Qty: 60 Refills: 0 Oxycodone HCl 5 mg Oral Tablet take 2 tablets (10 mg) by oral route every 4-6 hours as needed for pain POTASSIUM CHLORIDE SR 20 MEQ TAB, PARTICLES/CRYSTALS take 1 tablet (20meq) by oral route once daily with food Procaine HCl 1 % Injection Solution procaine 0.5% Qty: 12 cc Refills: 0 Associated Diagnoses: Fibromyalgia; Fibromyalgia promethazine 25 mg Oral Tablet as needed propranolol CR (INDERAL LA) 160 mg Oral Capsule,Sustained Action 24 hr take 1 capsule (160 mg) by oral route once daily riserdronate (ACTONEL) 35 mg Oral Tablet take 1 tablet (35 mg) by oral route once weekly in the morning, at least 30 minutes before the first food, beverage, or medication of the day Qty: 12 Refills: 1 year sucralfate (CARAFATE) 1 gram Oral Tablet 1 tab four times daily as needed for abdominal pain Qty: 60 Refills: 3 sucralfate (CARAFATE) 1 gram Oral Tablet 1 po qid Qty: 14 Refills: 1 VITAMIN C 500 MG CHEWABLE TAB four times a day Outstanding labs/studies: None Diet: Regular bariatric diet Activity: No driving while taking pain medications, limit lifting to 10 lbs or less, shower ing is okay but no submerging underwater. Follow Up: Follow up to [facility] surgery clinic in one week for removal of efren. Disposition: Home Condition: Good Discharging Physician: GEOFFREY JOLLY MD Attending Physician: Chris Ruano documented in this enco unter Discharge Instructions Instructions Lisa Ulloa RN - 12/31/2007INPATIENT PROVIDER DISCHARGE AND INTERDISCIPLI WHITNEY INSTRUCTIONS Discharge Date: 12/31/07 Service: Green surgery You or your family member have been primarily hospitalized for: Abdominal pain and partial small bowel obstruction. Principal Final Diagnosis: Abdominal pain and partial small bowel obstruction Additional Diagnoses: You or your family had the following procedures: Exploratory laparotomy and Lysis of adhesions Principal Procedure: Exploratory Laparotomy and Lysis of adhesions. Additional Procedures: Reason for Admission, Significant Findings, Treatment, and Complications Brief Hospital Course: Ms. Meehan is a 47-year-old woman who is post laparoscopic gastric bypass and subsequent panniculectomy who complains of 2 years of abdominal pain and intermittent nausea. She has had a diagnostic laparoscopy and was noted to have dense adhesions to her pelvis. Informed consent was obtained and she underwen t an exploratory laparotomy and lysis of adhesions. Please see operative notes for details. Post-operatively, she resumed her bowel function and was able to tolerate a regular bariatri c diet. She developed a cough with productive greenish sputum, but did not develop any blood in the sputum or fevers, chest pain Or shortness of breath. She stated that this is common for her after surgery. Currently she is in good condition, able to ambulate, eat, urinate a nd is having good bowel function. Diet: Regular bariatric diet Activity: No driving while taking pain medications, limit lifting to 10 lbs or less, shower ing is okay but no submerging underwater. Special Instructions: (Treatment, Equipment, Supplies, Dressings, LAB follow-up) Weigh daily: no Call: [facility] surgery clinic at If you have any of the following: Difficulty breathing or unusual shortness of breath Excessive bleeding, drainage at the operative site Fevers, chills, increased pain that is not relieved by pain medications Persistent nausea or vomiting Other SPECIFIC concerns, such as: Increased pain, fast heart rate, vomiting, abdominal dist ension, and incision leakage. Follow Up Appointments: PCP: Pedrito Gutierrez MD When? In 2 weeks Other: Follow up to [facility] surgery clinic in 1 week for efren removal. Follow Up Tests: (Tests at [facility] must be entered into Epic) None Condition On Discharge: Good Vital Signs at discharge as appropriate: BP: 103/55 mmHg (12/31/07 6:33 AM) Pulse: 65 (12/31/07 6:33 AM) Resp: 18 (12/31/07 6:33 AM) Wt - Scale: 86.5 kg (190 lbs 11.2 oz) (12/27/07 6:00 AM) Discharge Patient To: Home Does patient have a planned readmission: No Discharge Summary Completed?: Yes- Date 12/31/07 Discharging Provider: GEOFFREY JOLLY MD Date Completed: 12/31/07 Time Completed: 1:00PM Discharging Attending: Chris Ruano INPATIENT NURSE ORDER FOR DISCHARGE AND INTERDISCIPLINARY INSTRUCTIONS DISCHARGE DATE: 12/31/2007 Review with patient/family: Understanding of disease/injury/surgical repair Yes Signs/symptoms that they should report Yes Understanding of medications and side effects Yes Activity and diet instructions Yes Follow-up appointments Yes Any concerns/fears Yes Personal Effects/Medications: Admit belongings list verified Discharged Via: Wheelchair Mode of Transportation: Car Accompanied by: Family/Responsible Democrat Discharge Nurse: Lisa Ulloa Date: 12/31/2007 Discharge Time: 1:44 PM documented in this encounter Medications at Time [...] documented as of this encounter Progress Notes Astrid Craig - 12/31/2007 10:59 AM PDTPT contact: Pt ambulating independently in halls with out fww. States she has no further needs. She has abdominal precaution handout and can verba lize them. She states she has a preventative maintenance technician and raised toilet seat. No further needs. DC PT.Elec tronically signed by Astrid Craig at 12/31/2007 11:00 AM PDTBetty Goldman - 12/30/2007 9: 40 AM PDT Physical Therapy Evaluation December 30, 2007 Time: eval, treatment Activity orders: Up ad willie Precautions: Abdominal, h/o falls due to knee instability (use FWW) Admitting Diagnosis: Abdominal Pain HPI: 47 yo female admitted 12/24/07 with abdominal pain (h/o gastric bypass) - diagnosed w ith parital small bowel obstruction, intraabdominal adhesions with possible volvulus-Procedu re 12/27/07: exploratory laparotomy and lysis of adhesions. 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 Ambulation limited by knee, back pain. Falls: Falls "once in a while" due to knees. Previous Household Activities done by patient: Son helps with things around the house. 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 "he is very helpful and loves to clean" [facility] Residence: [facility] Patient's current discharge plan: Plan to discharge home Home environment: House, No Steps to enter. 1 level home "The bone doctor has told me not to ever do stairs" Bathroom: Tub shower Equipment: Owned: shower bench, FWW, cane, forearm crutches Son can provide as needed assist at home Patient / Family Goal / Subjective Statement: "I walk as much as I can" Communication / Other: Language: Romanian Physical Assessment PROM: LE's WFL AROM: LE's WFL Strength: WFL's Bilateral LE's. NT formally but WFL. Edema: None visualized Skin Integrity: Intact UE Neurological Function: Gross Motor Coordination: Intact Bilaterally Balance for ADL performance Sitting static balance: No LOB at EOB. Standing static balance: No LOB standing with or without walker Endurence / Activity Tolerance: Appropriate for situation Vital Signs / Pain: See documentation flowsheet Pain Management: No significant c/o pain Mobility Sit to stand from chair with SBA. Did not use FWW to stand "this is how I do it". Ambulated 300 feet with FWW with no assist needed. No rest breaks. No LOB. Gait WFL's. No c/o pain. Focus of treatment provided this date: Treatment Note: S-Agreeable to go over abdominal precautions and how they affect bed mobility O-Instructed in bed mobility with bed flat, pt used rail, logroll with max vc's in and out of bed. Described reasoning behind abdominal precautions A-Able to demonstrate logroll technique with ques and with rail. P-One more visit to ensure independent with bed mobility. Ended Session: Patient left in Chair and Call button in reach. Assessment: Impression: 47 yo female admitted 12/24/07 with abdominal pain (h/o gastric b ypass) - diagnosed with parital small bowel obstruction, intraabdominal adhesions with possi ble volvulus-Procedure 12/27/07: exploratory laparotomy and lysis of adhesions presents today with decreased knowledge of abdominal precautions, bed mobility. Rehab Potential: Good. Anticipated needs at discharge: home with assist prn Anticipated equipment needs at discharge: Owns all DME needed Goals: Due date 01.06.08 1. Independent verbalizing and adhering to abdominal precautions 2. Independent in and out of bed via logroll with bed flat no rail. Treatment Plan: Education, bed mobility Frequency: visits 1 more Treatment plan / goals discussed with Patient. BETTY GOLDMAN PT 12/30/2007 Mehran Camacho Md - 2007 8:41 AM PDT INPATIENT PROGRESS NOTE Hospital Day:3 Author; MEHRAN GRANGER MD Attending Physician: Chris Ruano Hx: Small amount flatus and BM yesterday. No flatus overnight. Pain fairly well controlled on Oxycontin and oxycodone. Ambulating Physical Exam: Last Vitals: BP 124/76 | Pulse 79 | Temp 36.8 C (98.2 F) | Resp 16 | Ht 1.753 m (5' 9") | Wt 86.5 kg (190 lbs 11.2 oz) | SpO2 92% O2 Delivery Device: None (room air) (12/30/07 6:56 AM) 24 Hour Vital Min/Max: Systolic (24hrs), Av mmHg, Min:96 mmHg, Max:124 mmHg Diastolic (24hrs), Av mmHg, Min:51 mmHg, Max:76 mmHg Pulse Av.0 Min: 60 Max: 79 Temp Av.9 C (98.5 F) Min: 36.8 C (98.2 F) Max: 37.2 C (99 F) Resp Av.0 Min: 16 Max: 16 SpO2 Av.0 % Min: 92 % Max: 98 % Intake/Output Summary (Last 24 hours) at 12/29 0841 Last data filed at 12/29 0600 Gross per 24 hour Intake 2320 ml Output 2750 ml Net -430 ml acetaminophen (aka TYLENOL) suppository 325-650 mg, 325-650 mg, Rectal, EVERY 4 HOURS NE EDED acetaminophen (aka TYLENOL) tablet 650 mg, 650 mg, Oral, EVERY 6 HOURS dextrose 5%-NaCl 0.45%-KCl 20 mEq/L IV infusion, , Intravenous, CONTINUOUS lansoprazole (aka PREVACID) capsule 30 mg, 30 mg, Oral, DAILY levothyroxine tablet 50 mcg, 50 mcg, Oral, DAILY nalbuphine (aka NUBAIN) injection 2.5 mg, 2.5 mg, Intravenous, EVERY 5 MINUTES NEEDED ondansetron (aka ZOFRAN) injection 4 mg, 4 mg, Intravenous, EVERY 12 HOURS NEEDED oxycodone CR (aka OXYCONTIN) tablet 40 mg, 40 mg, Oral, TWICE DAILY oxycodone immediate release (aka ROXICODONE) tablet 5-30 mg, 5-30 mg, Oral, EVERY 3 HOURS A S NEEDED promethazine (aka PHENERGAN) liquid 25 mg, 25 mg, Oral, EVERY 6 HOURS NEEDED propranolol ER (aka INDERAL LA) capsule 160 mg, 160 mg, Oral, AT BEDTIME General Appearance: Alert and oriented x 4 Respiratory: Clear Cardiovascular: Regular Gastrointestinal: Soft, tender, incision dry no erythema Assessment and Plan: POD #3 s/p exploratory laparotomy and extensive lysis of adhesions. Awaiting more convincing bowel function. Continue clear liquid diet. Current pain regimen acceptable. D/C nava iyaBeto canas - 8 2:23 PM PDT12/28/07 Initial Case Management Asssessment and Plan: Reviewed medical record: yes Interviewed patient and/or caregiver: yes, pt. Pre-admission functional status: Needed assistance. Pre-admission living situation: Lives with son in apartment in [place], [place]. Pre-admission services in place: Son is caregiver paid by [facility] to provide 20hrs/ month of care. [facility] small engine technician is Reyna Ocasio, , ext [phone]. Already has @ home: shower chair, walker, crutches, cane. Pt/Family/Caregiver goals: Pt wants to return home, but thinks she will need additional hel p with showering, light housekeeping, meal prep. She would like [facility] to authorize addition al paid hours for her son. Transportation plans upon discharge: Transportation connection (volunteers) . Applications Instructor who brought pt to [place] is Pablo All @ [phone]. NEED 24 HOUR NOTICE TO ARRAN GE. Anticipated discharge needs: Transportation coordination; Possible increased in home servic es if available. Left message for small engine technician Reyna Amarjit to call me to discuss process and eligibility requ irements for increased in-home services for a short time. Surgical procedure was an exp lap and lysis of adhesions, so these needs should be short lived. Expect discharge Thursday at [place]. [place] [id number]. 12/29/07 update: received call back from [facility] small engine technician Reyna Ocasio. She will make home vi sit when pt returns home to assess for need for increased services. Pt also has contracted RN who visits. She pass along d/c date when known. Ms. Ocasio indicated that pt recently h ad HH PT, and she thinks this was in place immediately prior to admission. In terms of [employer], the above transport info is a volunteer organization she may use, but she also has a medical transportation benefit that can be utilized for transport home through [employer] [phone]. [place] [phone]. 12/31/07: Pt ready for discharge. Pt called transportation line herself and has volunteer water taxi driver here to take her home. I notified medicaid small engine technician by voicemail [place] [phone]. hite, Debbiearnoldo - 12/29/2007 9:52 AM PDTFormatting of this note might be different from the origi nal. Nutrition Belindanevin Meehan is a 47 y.o. Female s/p ex lap ISAIAH for partial SBO POD#2 Diet: CL I/O BMx0 CBG 92-107 Pert meds: noted Lab Results Lab Test Name Results Date/Time NA 131 12/29/07 K 5.0 12/29/07 CL 105 12/29/07 BICARB 19 12/29/07 BUN 4 12/29/07 CR 0.42 12/29/07 GLU 97 12/29/07 CA 7.9 12/29/07 MG 1.8 12/07/04 PO4 4.3 12/07/04 AST 26 11/25/07 ALT 27 11/25/07 AP 97 11/25/07 TBILI 0.7 11/25/07 ALB 3.8 11/25/07 Nutrition Diagnosis Problem: Pt with inadequate food and jenna intake Etiology:r/t inability to take food and jenna by mouth d/t post op ileus As shown by NPO/CL day #2 Nutrition Goal Ht 69" Wt 86.5 kg ABW 71 kg BMI 28 Energy needs: 1775-2130kcal(25-30 kcal/kgABW) Pro needs:92-107 gm protein (1.3-1.5 gm pro/kgABW) Assessment Pt starting CL diet today awaiting return of bowel fx as evidenced by No flatus or BM. Plan Monitor po advance, sahara If unable to advance diet in 5-7 days, rec nutrition support #[id number] ducristaAmber Katie - 12/28 9:43 AM PDT INPATIENT ADULT PAIN SERVICE NEURAXIAL BLOCK PROGRESS NOTE 12/29/2007 POD# 2. Status post: . Status post: exploratory laparotomy and lysis of adhesions Pain Score 0/10 (at rest), 0/10 (cough, deep breath, movement). Pain at home over "100 at times." Side Effects: Nausea/Vomiting: none Urticaria: none Numbness/Weakness: mild Low BP/Dizziness: none Sedation: none Activity level: Out of bed Diet: Tolerates liquids Medications: Type: Epidural Medications: Bupivacaine 0.1 % and Hydromorphone 10 mcg/ml Rate: 10 ml/hour Anticoagulants: No PROTHROMBIN TIME (INR) (INR) Date Value 11/25/07 1.06 PLATELET COUNT (K/cu mm) Date Value 12/29/07 153 APTT (seconds) Date Value 11/25/07 28.4 Opioids Oxycontin 40 mg x 2 Other analgesics:None Other psychoactive medications: None Physical Exam: Last Vitals:BP 104/53 | Pulse 72 | Temp 37.7 C (99.9 F) | Resp 16 | Ht 1.753 m (5' 9") | Wt 86.5 kg (190 lbs 11.2 oz) | SpO2 94% 24 hour Vitals min/max : Systolic (24hrs), Av mmHg, Min:91 mmHg, Max:106 mmHg Diastolic (24hrs), Av mmHg, Min:45 mmHg, Max:53 mmHg Pulse Av.5 Min: 65 Max: 85 Temp Av.7 C (99.9 F) Min: 37.1 C (98.8 F) Max: 38.3 C (100.9 F) Resp Av.8 Min: 15 Max: 16 SpO2 Av.3 % Min: 93 % Max: 98 % General Appearance: Mental Status: Awake and alert Orientation: Coherent Motor: Moves all extremities Neuraxial Catheter: Location: T9-11 Dressing: Intact Exit Site: Dried blood and Non-tender Bleeding: no Chest tube in place:no Assessment 1. Pain control: Good 2. Prior to hospitalization: Chronic use of opioids Oxycontin 40 mg bid and oxycodone 3. Chronic abdominal, back and head pain. Plan: Transition to oral pain medications, Discontinue neuraxial infusion and Catheter removed (t ip intact) AMBER RAINES PA-C Janice Woodson, Mehran - 12/28 5:22 AM PDT INPATIENT PROGRESS NOTE Author; GEOFFREY JOLLY MD Attending Physician: Chris Ruano Hx: Slept better, pain reduced. Feeling some shoulder pain. No f/BM No nausea or vomiting Not walking as much. Physical Exam: Last Vitals: BP 97/47 | Pulse 85 | Temp 37.5 C (99.5 F) | Resp 16 | Ht 1.753 m (5' 9") | Wt 86.5 kg (190 lbs 11.2 oz) | SpO2 95% 24 Hour Vital Min/Max: Systolic (24hrs), Av mmHg, Min:84 mmHg, Max:106 mmHg Diastolic (24hrs), Av mmHg, Min:45 mmHg, Max:65 mmHg Pulse Av.5 Min: 65 Max: 85 Temp Av.6 C (99.6 F) Min: 36.8 C (98.2 F) Max: 38.3 C (100.9 F) Resp Av.2 Min: 12 Max: 16 SpO2 Av.0 % Min: 92 % Max: 98 % Intake/Output Summary (Last 24 hours) at 12/28 0522 Last data filed at 12/28 0000 Gross per 24 hour Intake 3082 ml Output 1125 ml Net 1957 ml Labs Component Reference Range 12/28/2007 12/29/2007 GLUCOSE (LAB) 60-99 mg/dL 82 97 BUN 6-20 mg/dL 7 4 (L) CREATININE,PLASMA 0.60-1.10 mg/dL 0.59 (L) 0.42 (L) SODIUM (LAB) 134-143 mmol/L 135 131 (L) POTASSIUM (LAB) 3.4-5.0 mmol/L 3.9 5.0 CHLORIDE 97-108 mmol/L 106 105 TOTAL CO2 23-31 mmol/L 23 19 (L) CALCIUM (LAB) 8.6-10.2 mg/dL 8.3 (L) 7.9 (L) POTASSIUM CMNT MRK HEMO WHITE CELL COUNT 4.4-11.0 K/cu mm 11.4 (H) 9.5 RED CELL COUNT 4.00-5.20 M/cu mm 4.33 3.91 (L) HEMOGLOBIN 12.0-16.0 g/dL 13.3 12.1 HEMATOCRIT 36.0-46.0 % 39.9 36.1 MCV 80.0-96.0 fL 92.2 92.4 MCHC 33.4-35.5 g/dL 33.4 33.5 RDW 11.5-15.0 % 13.8 13.7 PLATELET COUNT 150-400 K/cu mm 181 153 acetaminophen (aka TYLENOL) suppository 325-650 mg, 325-650 mg, Rectal, EVERY 4 HOURS NE EDED bupivacaine 0.1 %-hydromorphone 10 mcg/mL epidural infusion , , Epidural, CONTINUOUS dextrose 5%-NaCl 0.45%-KCl 20 mEq/L IV infusion, , Intravenous, CONTINUOUS lansoprazole (aka PREVACID) capsule 30 mg, 30 mg, Oral, DAILY levothyroxine tablet 50 mcg, 50 mcg, Oral, DAILY nalbuphine (aka NUBAIN) injection 2.5 mg, 2.5 mg, Intravenous, EVERY 5 MINUTES NEEDED naloxone (aka NARCAN) injection, , Intravenous, NEEDED ondansetron (aka ZOFRAN) injection 4 mg, 4 mg, Intravenous, EVERY 12 HOURS NEEDED oxycodone CR (aka OXYCONTIN) tablet 40 mg, 40 mg, Oral, TWICE DAILY propranolol ER (aka INDERAL LA) capsule 160 mg, 160 mg, Oral, AT BEDTIME General Appearance: NAD, alert and oriented, Respiratory: CTAB, no wheezes, crackles or rhonchi Cardiovascular: RRR, no murmurs Abd: Soft, NT, ND, incision CDI Ext: No LE edema, pulses intact Skin: Warm Assessment and Plan: 47 yr old with morbid obesity s/p Ex lap ISAIAH POD # 2 Pain: D/C epidural, and continue home oxycontin, add oxycodone Diet: Clears, awaiting bowel function. Activity: ambulate as tolerated Meds: synthroid, propranolol Proph: Prevacid, SCDs, ambulate. Dispo: D/C home once bowel function returns Addendum: Mehran Granger Would continue epidural until able to take PO enisha Lawrence - 12/27 8:21 AM PDT INPATIENT PROGRESS NOTE Hospital Day:1 Author; KENISHA LAWRENCE ACNP Attending Physician: Chris Ruano Hx: Was dizzy when she got up, two people helped her to stand and go to the chair. Left side of her abdomen is not as numb as the right. Dressing placed over her midline in cision due to drainage, changed her dressing for the first time. Used her walker to get duane und since having right knee surgery in August. Feels shaky with walking, got in the chair an d sat up for two hours. She was up all night due to right sided headache, now 01/22. Has hi story of migraine headaches, treated with a new medication (maxalt) at home, ineffective and leading to a feeling of facial explosion with sinus pressure. Dry mouth, would like to sta rt liquids. No nausea. No flatus. History of yellow diarrhea for 2 weeks, no bowel prep. No inspirometer yet, knows how to use one after her knee surgeries. Was started back on Ind eral by her PCP, 160 mg in the evening, has been on this for 2 years. It is a preventive fo r headaches. Would like her nava catheter removed, but needs to stay in with the epidural catheter in.. Wondered if she would be on the Carafate in the hospital for abdominal pain ( acid with drinking). Complaints of right shoulder pain, started last nite with the headache. History of arthritis and has this pain occasionally ( on Actonel each - for osteo porosis). Physical Exam: Last Vitals: BP 84/65 | Pulse 66 | Temp 36.8 C (98.2 F) | Resp 12 | Ht 1.753 m (5' 9") | Wt 86.5 kg (190 lbs 11.2 oz) | SpO2 92% O2 Delivery Device: None (room air) (12/28/07 7:13 AM) 24 Hour Vital Min/Max: Systolic (24hrs), Av mmHg, Min:84 mmHg, Max:127 mmHg Diastolic (24hrs), Av mmHg, Min:53 mmHg, Max:84 mmHg Pulse Av.7 Min: 58 Max: 72 Temp Av.9 C (98.5 F) Min: 36.5 C (97.7 F) Max: 37.4 C (99.3 F) Resp Av.8 Min: 10 Max: 18 SpO2 Av.5 % Min: 92 % Max: 100 % Intake/Output Summary (Last 24 hours) at 12/27 08 Last data filed at 12/27 0700 Gross per 24 hour Intake 5197 ml Output 640 ml Net 4557 ml General Appearance: Alert and oriented X3 HEENT: PERRLA, EOMI's, dry mucosa Neck: no LAD, supple Respiratory: CTA bilaterally Cardiovascular: RRR, no tachycardia Gastrointestinal: Soft, skin with decreased sensation left abdomen (post epidural bolus), D ressing over incision, CDI, no swelling or erythema. Nondistended, hypo bowel tones Musculoskeletal: CROUCH's, stength 5/5, Skin: no swelling, pulses intact bilaterally, equal. Epidural cath mid back CDI, no erythem a or swelling Neurologic: intact Psychiatric: no problems noted Assessment and Plan: POD #1, exploratory with ISAIAH. History of gastric bypass, abdominal p ain Cardiac: Fluid bolus, watch hypotension with epidural in, on Inderal in the sukumar for headac hes Pulm: Order IS, 10X per hour while awake order GI: Sips clear liquids to start : Only 640 mls urine output, concentrated, 100 mls listed for nites. 45 mls currently i n the bag. Nava to stay in while epidural infusing, fluid bolus since UO low, watch for nee d for additional fluid bolus Pain: Pain Service consulting, epidural management, will order Oxycontin to start. Has a pheresis specialist at home MS: Limit ambulation if hypotensive, dizziness when up. Transfer to chair. Amber Gonzalez 8:17 AM PDT INPATIENT ADULT PAIN SERVICE NEURAXIAL BLOCK PROGRESS NOTE 12/28/2007 POD# 1. Status post: exploratory laparotomy and lysis of adhesions Pain Score 4/10 (at rest), 8/10 (cough, deep breath, movement), in the abdomen, left side only. Complains of "migraine headache" which involves the right side of head and neck. Rates this as 7/10, throbbing. Pain at home abdomen, migraine headaches and low back, "more than 100"/10 at times. States went to ER for relief of migraines and abdominal pain. Treated pro phylactically with inderal for migraines, no home medication was helpful. Would receive dem tre and vistaril in the ER and that was helpful. Took Oxycontin 40 mg bid and oxycodone 2-3 tabs every 4 hours for low back pain at home. Pt of [facility] [employer] at [facility]. Side Effects: Nausea/Vomiting: none Urticaria: none Numbness/Weakness: moderate right thigh and lower abdomen Low BP/Dizziness: mild Sedation: none Activity level: In bed all the time Diet: NPO/sips/ice chips Medications: Type: Epidural Medications: Bupivacaine 0.1 % and Hydromorphone 10 mcg/ml Rate: 10 ml/hour Anticoagulants: No PROTHROMBIN TIME (INR) (INR) Date Value 11/25/07 1.06 PLATELET COUNT (K/cu mm) Date Value 11/25/07 232 APTT (seconds) Date Value 11/25/07 28.4 Opioids:None Other analgesics:None Other psychoactive medications: None Physical Exam: Last Vitals:BP 84/65 | Pulse 66 | Temp 36.8 C (98.2 F) | Resp 12 | Ht 1.753 m (5' 9") | Wt 86.5 kg (190 lbs 11.2 oz) | SpO2 92% 24 hour Vitals min/max : Systolic (24hrs), Av mmHg, Min:84 mmHg, Max:127 mmHg Diastolic (24hrs), Av mmHg, Min:53 mmHg, Max:84 mmHg Pulse Av.7 Min: 58 Max: 72 Temp Av.9 C (98.5 F) Min: 36.5 C (97.7 F) Max: 37.4 C (99.3 F) Resp Av.8 Min: 10 Max: 18 SpO2 Av.5 % Min: 92 % Max: 100 % General Appearance: Mental Status: Awake and alert Orientation: Coherent Motor: Moves all extremities Sensory: hypesthetic right low abdomen and thigh Neuraxial Catheter: Location: T6-8;depth at skin ? cm Dressing: Intact Exit Site: Clean and Non-tender Bleeding: no Chest tube in place:no Assessment 1. Pain control: Fair 2. Prior to hospitalization: Chronic use of opioids oxycontin 40 mg bid and oxycodone 2-3 e very 4 hours prn. Chronic low back, abdominal pain and "migraine headaches." History of frequent ER visits fo r pain control of abdomen and headaches. 3. Current right sided headache. 4. Possible unilateral block, but pain reasonably controlled. 5. Have placed patient left side down and given bolus of 5 ml of epidural, had bilateral sp read. Plan: Continue neuraxial infusion, titrate infusion as needed Start home dose of oxycontin 40 mg every 12 hours. AMBER RAINES PA-C osHilary jacobsen - 2007 11:53 AM PDTMsYudy Meehan was seen in the PACU by APS. She is alert with VSS. Patient is pain free. The epidural is functioning well. Hilary Pete MD Anesthesiology Asult Pain Service evenChris shah - 12/27/2007 10:45 AM PDTINPATIENT BRIEF OPERATIVE NOTE Date: 12/27/2007 Author: CHRIS RUANO MD Attending Physician: Mayra Ruano Assistants: Ana Lilia Granger Preoperative Diagnosis: abdominal pain Postoperative Diagnosis: intraabdominal adhesions with possible volvulus Procedure Performed: exploratory laparotomy and lysis of adhesions Estimated Blood Loss: 50 ml Fluids: per Anesthesia Specimens: none Complications: none Drains: none Disposition: extubated to PACU, stable Findings: adhesions with a band of omentum to the pelvis, numerous adhesions of the termina l ileum to the pelvic floor documented in this enc ounter Plan of Treatment Not on filedocumented as of this encounter Procedures + +--------+ + + + | Procedure Name | Priori | Date/Time | Associated Diagnosis | Comments | | | ty | | | | + +--------+ + + + | ANESTHESIA/SEDATION | | 12/31/2007 | | Results for this | | | | 1:56 PM | | procedure are in the | | | | PDT | | results section. | + +--------+ + + + | ANESTHESIA/SEDATION | | 12/30/2007 | | Results for this | | | | 7:47 PM | | procedure are in the | | | | PDT | | results section. | + +--------+ + + + | BASIC METABOLIC SET | Routin | 12/30/2007 | | Results for this | | (NA, K, CL, TCO2, | e | 7:03 AM | | procedure are in the | | BUN, CR, GLU, CA) | | PDT | | results section. | + +--------+ + + + | CBC ONLY | Routin | 12/30/2007 | | Results for this | | | e | 7:03 AM | | procedure are in the | | | | PDT | | results section. | + +--------+ + + + | PHOSPHORUS, PLASMA | Routin | 12/30/2007 | | Results for this | | | e | 7:03 AM | | procedure are in the | | | | PDT | | results section. | + +--------+ + + + | MAGNESIUM, PLASMA | Routin | 12/30/2007 | | Results for this | | | e | 7:03 AM | | procedure are in the | | | | PDT | | results section. | + +--------+ + + + | X-RAY PORTABLE CHEST | Routin | 12/29/2007 | | Results for this | | 1 VIEW | e | 2:54 PM | | procedure are in the | | | | PDT | | results section. | + +--------+ + + + | BASIC METABOLIC SET | Routin | 12/29/2007 | | Results for this | | (NA, K, CL, TCO2, | e | 5:33 AM | | procedure are in the | | BUN, CR, GLU, CA) | | PDT | | results section. | + +--------+ + + + | CBC ONLY | Routin | 12/29/2007 | | Results for this | | | e | 5:33 AM | | procedure are in the | | | | PDT | | results section. | + +--------+ + + + | ANESTHESIA/SEDATION | | 12/28/2007 | | Results for this | | | | 11:28 PM | | procedure are in the | | | | PDT | | results section. | + +--------+ + + + | ANESTHESIA/SEDATION | | 12/28/2007 | | Results for this | | | | 9:09 PM | | procedure are in the | | | | PDT | | results section. | + +--------+ + + + | BASIC METABOLIC SET | Routin | 12/28/2007 | | Results for this | | (NA, K, CL, TCO2, | e | 11:20 AM | | procedure are in the | | BUN, CR, GLU, CA) | | PDT | | results section. | + +--------+ + + + | CBC ONLY | Routin | 12/28/2007 | | Results for this | | | e | 11:20 AM | | procedure are in the | | | | PDT | | results section. | + +--------+ + + + | TYPE AND SCREEN | Routin | 12/27/2007 | | Results for this | | | e | 6:32 AM | | procedure are in the | | | | PDT | | results section. | + +--------+ + + + | OPERATION RECORD | | 12/27/2007 | | Results for this | | | | 12:00 AM | | procedure are in the | | | | PDT | | results section. | + +--------+ + + + documented in this encounter Results ANESTHESIA/SEDATION (12/31/2007 1:56 PM PDT) + + + | Narrative | Performed At | + + + | | | + + + + + | Procedure Note | + + | Vilma Gibbons - 12/31/2007 1:56 PM PDT | + + ANESTHESIA/SEDATION (12/30/2007 7:47 PM PDT) + + + | Narrative | Performed At | + + + | | | + + + + + | Procedure Note | + + | Other, Faculty - 12/30/2007 7:47 PM PDT | + + PHOSPHORUS, PLASMA (12/30/2007 7:03 AM PDT) + +-------+ + + + | Component | Value | Ref Range | Performed | Pathologist | | | | | At | Signature | + +-------+ + + + | PHOSPHORUS, | 3.4 | 2.4 - 4.7 mg/dL | [facility] | | | PLASMA | | | DEPARTMENT | | | (LAB) | | | OF | | | | | | PATHOLOGY | | + +-------+ + + + + + | Specimen | + + | Blood - Blood | + + + + + | Narrative | Performed At | + + + | New Reference ranges effective 07 for: Sodium, | [facility] | | Potassium, Chloride,Total CO2, Calcium | DEPARTMENT OF | | | PATHOLOGY | + + + + + + + + | Performing | Address | City/State/Zipcode | Phone Number | | Organization | | | | + + + + + | [facility] DEPARTMENT OF | [address] | [place] [address] | | | PATHOLOGY | [address] | | | + + + + + | [facility] DEPARTMENT OF | [address] | [place] [address] | | | PATHOLOGY | [address] | | | + + + + + MAGNESIUM, PLASMA (12/30/2007 7:03 AM PDT) + +-------+ + + + | Component | Value | Ref Range | Performed | Pathologist | | | | | At | Signature | + +-------+ + + + | MAGNESIUM,P | 2.0 | 1.8 - 2.5 mg/dL | [facility] | | | LASMA | | | DEPARTMENT | | | | | | OF | | | | | | PATHOLOGY | | + +-------+ + + + + + | Specimen | + + | Blood - Blood | + + + + + | Narrative | Performed At | + + + | New Reference ranges effective 07 for: Sodium, | [facility] | | Potassium, Chloride,Total CO2, Calcium | DEPARTMENT OF | | | PATHOLOGY | + + + + + + + + | Performing | Address | City/State/Zipcode | Phone Number | | Organization | | | | + + + + + | [facility] | [address] | [place] [address] | | | PATHOLOGY | [address] | | | + + + + + | [facility] | [address] | [place] [address] | | | PATHOLOGY | [address] | | | + + + + + BASIC METABOLIC SET (NA, K, CL, TCO2, BUN, CR, GLU, CA) (12/30/2007 7:03 AM PDT) + + + + + + | Component | Value | Ref Range | Performed | Pathologist | | | | | At | Signature | + + + + + + | GLUCOSE, | 134 (H) | 60 - 99 mg/dL | [facility] | | | PLASMA | | | DEPARTMENT | | | (LAB) | | | OF | | | | | | PATHOLOGY | | + + + + + + | CREATININE | 0.59 (L) | 0.60 - 1.10 | [facility] | | | PLASMA | | mg/dL | DEPARTMENT | | | (LAB) | | | OF | | | | | | PATHOLOGY | | + + + + + + | SODIUM, | 143 | 134 - 143 | [facility] | | | PLASMA | | mmol/L | DEPARTMENT | | | (LAB) | | | OF | | | | | | PATHOLOGY | | + + + + + + | POTASSIUM, | 4.4 | 3.4 - 5.0 | [facility] | | | PLASMA | | mmol/L | DEPARTMENT | | | (LAB) | | | OF | | | | | | PATHOLOGY | | + + + + + + | CHLORIDE, | 109 (H) | 97 - 108 mmol/L | [facility] | | | PLASMA | | | DEPARTMENT | | | (LAB) | | | OF | | | | | | PATHOLOGY | | + + + + + + | TOTAL CO2, | 29 | 23 - 31 mmol/L | [facility] | | | PLASMA | | | DEPARTMENT | | | (LAB) | | | OF | | | | | | PATHOLOGY | | + + + + + + | CALCIUM, | 8.7 | 8.6 - 10.2 | [facility] | | | PLASMA | | mg/dL | DEPARTMENT | | | (LAB) | | | OF | | | | | | PATHOLOGY | | + + + + + + | BUN, PLASMA | < 1 (L) | 6 - 20 mg/dL | [facility] | | | (LAB) | | | DEPARTMENT | | | | | | OF | | | | | | PATHOLOGY | | + + + + + + + + | Specimen | + + | Blood - Blood | + + + + + | Narrative | Performed At | + + + | New Reference ranges effective 07 for: Sodium, | [facility] | | Potassium, Chloride,Total CO2, Calcium | DEPARTMENT OF | | | PATHOLOGY | + + + + + + + + | Performing | Address | City/State/Zipcode | Phone Number | | Organization | | | | + + + + + | [facility] DEPARTMENT OF | [address] | [place] [address] | | | PATHOLOGY | [address] | | | + + + + + | [facility] DEPARTMENT OF | [address] | [place] [address] | | | PATHOLOGY | [address] | | | + + + + + CBC ONLY (12/30/2007 7:03 AM PDT) + +-------+ + + + | Component | Value | Ref Range | Performed | Pathologist | | | | | At | Signature | + +-------+ + + + | WHITE CELL | 8.6 | 4.4 - 11.0 K/cu | [facility] | | | COUNT | | mm | DEPARTMENT | | | | | | OF | | | | | | PATHOLOGY | | + +-------+ + + + | RED CELL | 4.09 | 4.00 - 5.20 | [facility] | | | COUNT | | M/cu mm | DEPARTMENT | | | | | | OF | | | | | | PATHOLOGY | | + +-------+ + + + | HEMOGLOBIN | 12.7 | 12.0 - 16.0 | [facility] | | | | | g/dL | DEPARTMENT | | | | | | OF | | | | | | PATHOLOGY | | + +-------+ + + + | HEMATOCRIT | 37.9 | 36.0 - 46.0 % | [facility] | | | | | | DEPARTMENT | | | | | | OF | | | | | | PATHOLOGY | | + +-------+ + + + | MCV | 92.5 | 80.0 - 96.0 fL | [facility] | | | | | | DEPARTMENT | | | | | | OF | | | | | | PATHOLOGY | | + +-------+ + + + | MCHC | 33.6 | 33.4 - 35.5 | [facility] | | | | | g/dL | DEPARTMENT | | | | | | OF | | | | | | PATHOLOGY | | + +-------+ + + + | RDW | 13.4 | 11.5 - 15.0 % | [facility] | | | | | | DEPARTMENT | | | | | | OF | | | | | | PATHOLOGY | | + +-------+ + + + | PLATELET | 180 | 150 - 400 K/cu | [facility] [...] | + + + + + | [facility] DEPARTMENT OF | [address] | [place] [address] | | | PATHOLOGY | [address] | | | + + + + + | [facility] DEPARTMENT OF | [address] | [place] [address] | | | PATHOLOGY | [address] | | | + + + + + X-RAY PORTABLE CHEST 1 VIEW (12/29/2007 2:54 PM PDT) + + + + + + | Component | Value | Ref Range | Performed | Pathologist | | | | | At | Signature | + + + + + + | X-RAY | EXAM: AP | | | | | PORTABLE | CHEST.COMPARISON: | | | | | CHEST 1 | 11/25/07FINDINGS: | | | | | VIEW | There is loss of left | | | | | | hemidiaphragm | | | | | | silhouette, with anarea | | | | | | of focal consolidation | | | | | | in the retrocardiac | | | | | | region. There isalso | | | | | | tenting of the left | | | | | | hemidiaphragm. There | | | | | | is mild blunting ofthe | | | | | | costophrenic angles | | | | | | bilaterally. The | | | | | | cardiac and | | | | | | mediastinalsilhouettes | | | | | | are within normal | | | | | | limits. There is mild | | | | | | bibasilarsubsegmental | | | | | | atelectasis. There is | | | | | | no pneumothorax, and no | | | | | | pulmonaryedema. The | | | | | | osseous structures are | | | | | | unremarkable.IMPRESSION: | | | | | | 1. Retrocardiac opacity | | | | | | which may represent | | | | | | atelectasis, but | | | | | | isconcerning for | | | | | | infectious pneumonia. | | | | | | Aspiration is an | | | | | | additionalconsideration. | | | | | | Follow-up studies may | | | | | | be useful. Mild | | | | | | bilateralpleural | | | | | | effusions.I have | | | | | | personally viewed this | | | | | | procedure/exam and | | | | | | reviewed this | | | | | | report.STATUS FINAL / | | | | | | Dr. NAHED CHRISTINE | | | | + + + + + + + + | Specimen | + + | | + + + +---------+ + + | Performing | Address | City/State/Zipcode | Phone Number | | Organization | | | | + +---------+ + + | [facility] | | | | | RADIOLOGY | | | | + +---------+ + + CBC ONLY (12/29/2007 5:33 AM PDT) + + + + + + | Component | Value | Ref Range | Performed | Pathologist | | | | | At | Signature | + + + + + + | WHITE CELL | 9.5 | 4.4 - 11.0 K/cu | [facility] | | | COUNT | | mm | DEPARTMENT | | | | | | OF | | | | | | PATHOLOGY | | + + + + + + | RED CELL | 3.91 (L) | 4.00 - 5.20 | [facility] | | | COUNT | | M/cu mm | DEPARTMENT | | | | | | OF | | | | | | PATHOLOGY | | + + + + + + | HEMOGLOBIN | 12.1 | 12.0 - 16.0 | [facility] | | | | | g/dL | DEPARTMENT | | | | | | OF | | | | | | PATHOLOGY | | + + + + + + | HEMATOCRIT | 36.1 | 36.0 - 46.0 % | [facility] | | | | | | DEPARTMENT | | | | | | OF | | | | | | PATHOLOGY | | + + + + + + | MCV | 92.4 | 80.0 - 96.0 fL | [facility] | | | | | | DEPARTMENT | | | | | | OF | | | | | | PATHOLOGY | | + + + + + + | MCHC | 33.5 | 33.4 - 35.5 | [facility] | | | | | g/dL | DEPARTMENT | | | | | | OF | | | | | | PATHOLOGY | | + + + + + + | RDW | 13.7 | 11.5 - 15.0 % | [facility] | | | | | | DEPARTMENT | | | | | | OF | | | | | | PATHOLOGY | | + + + + + + | PLATELET | 153 | 150 - 400 K/cu | [facility] [...] | + + + + + | [facility] | [address] | [place] [address] | | | PATHOLOGY | [address] | | | + + + + + | [facility] | [facility] | [place] [address] | | | PATHOLOGY | [address] | | | + + + + + BASIC METABOLIC SET (NA, K, CL, TCO2, BUN, CR, GLU, CA) (12/29/2007 5:33 AM PDT) + + + + + + | Component | Value | Ref Range | Performed | Pathologist | | | | | At | Signature | + + + + + + | GLUCOSE, | 97 | 60 - 99 mg/dL | [facility] | | | PLASMA | | | DEPARTMENT | | | (LAB) | | | OF | | | | | | PATHOLOGY | | + + + + + + | BUN, PLASMA | 4 (L) | 6 - 20 mg/dL | [facility] | | | (LAB) | | | DEPARTMENT | | | | | | OF | | | | | | PATHOLOGY | | + + + + + + | CREATININE | 0.42 (L) | 0.60 - 1.10 | [facility] | | | PLASMA | | mg/dL | DEPARTMENT | | | (LAB) | | | OF | | | | | | PATHOLOGY | | + + + + + + | SODIUM, | 131 (L) | 134 - 143 | [facility] | | | PLASMA | | mmol/L | DEPARTMENT | | | (LAB) | | | OF | | | | | | PATHOLOGY | | + + + + + + | POTASSIUM, | 5.0 | 3.4 - 5.0 | [facility] | | | PLASMA | | mmol/L | DEPARTMENT | | | (LAB) | | | OF | | | | | | PATHOLOGY | | + + + + + + | CHLORIDE, | 105 | 97 - 108 mmol/L | [facility] | | | PLASMA | | | DEPARTMENT | | | (LAB) | | | OF | | | | | | PATHOLOGY | | + + + + + + | TOTAL CO2, | 19 (L) | 23 - 31 mmol/L | [facility] | | | PLASMA | | | DEPARTMENT | | | (LAB) | | | OF | | | | | | PATHOLOGY | | + + + + + + | CALCIUM, | 7.9 (L) | 8.6 - 10.2 | [facility] | | | PLASMA | | mg/dL | DEPARTMENT | | | (LAB) | | | OF | | | | | | PATHOLOGY | | + + + + + + | POTASSIUM | MRK HEMO | | [facility] | | | CMNT | | | DEPARTMENT | | | | | | OF | | | | | | PATHOLOGY | | + + + + + + + + | Specimen | + + | Blood - Blood | + + + + + | Narrative | Performed At | + + + | New Reference ranges effective 07 for: Sodium, | [facility] | | Potassium, Chloride,Total CO2, Calcium Sample hemolyzed. Results for | DEPARTMENT OF | | K, Total Bili., Direct Bili., AST, LD, or HDL may be inaccurate. | PATHOLOGY | | Refer to comment under test result. | | + + + + + + + + | Performing | Address | City/State/Zipcode | Phone Number | | Organization | | | | + + + + + | [facility] DEPARTMENT | [address] [place] [address] | [place] [address] | | | PATHOLOGY | [address] | | | + + + + + | [facility] OF | [address] | [place] [address] | | | PATHOLOGY | [address] | | | + + + + + ANESTHESIA/SEDATION (12/28/2007 11:28 PM PDT) + + + | Narrative | Performed At | + + + | | | + + + + + | Procedure Note | + + | Vilma Gibbons - 12/28/2007 11:28 PM PDT | + + ANESTHESIA/SEDATION (12/28/2007 9:09 PM PDT) + + + | Narrative | Performed At | + + + | | | + + + + + | Procedure Note | + + | Vilma Gibbons - 12/28/2007 9:09 PM PDT | + + CBC ONLY (12/28/2007 11:20 AM PDT) + + + + + + | Component | Value | Ref Range | Performed | Pathologist | | | | | At | Signature | + + + + + + | WHITE CELL | 11.4 (H) | 4.4 - 11.0 K/cu | [facility] | | | COUNT | | mm | DEPARTMENT | | | | | | OF | | | | | | PATHOLOGY | | + + + + + + | RED CELL | 4.33 | 4.00 - 5.20 | [facility] | | | COUNT | | M/cu mm | DEPARTMENT | | | | | | OF | | | | | | PATHOLOGY | | + + + + + + | HEMOGLOBIN | 13.3 | 12.0 - 16.0 | [facility] | | | | | g/dL | DEPARTMENT | | | | | | OF | | | | | | PATHOLOGY | | + + + + + + | HEMATOCRIT | 39.9 | 36.0 - 46.0 % | [facility] | | | | | | DEPARTMENT | | | | | | OF | | | | | | PATHOLOGY | | + + + + + + | MCV | 92.2 | 80.0 - 96.0 fL | [facility] | | | | | | DEPARTMENT | | | | | | OF | | | | | | PATHOLOGY | | + + + + + + | MCHC | 33.4 | 33.4 - 35.5 | [facility] | | | | | g/dL | DEPARTMENT | | | | | | OF | | | | | | PATHOLOGY | | + + + + + + | RDW | 13.8 | 11.5 - 15.0 % | [facility] | | | | | | DEPARTMENT | | | | | | OF | | | | | | PATHOLOGY | | + + + + + + | PLATELET | 181 | 150 - 400 K/cu | [facility] [...] | + + + + + | [facility] | [facility] | [place] [address] | | | PATHOLOGY | [address] | | | + + + + + | [facility] DEPARTMENT OF | [address] | [place] [address] | | | PATHOLOGY | [address] | | | + + + + + BASIC METABOLIC SET (NA, K, CL, TCO2, BUN, CR, GLU, CA) (12/28/2007 11:20 AM PDT) + + + + + + | Component | Value | Ref Range | Performed | Pathologist | | | | | At | Signature | + + + + + + | GLUCOSE, | 82 | 60 - 99 mg/dL | [facility] | | | PLASMA | | | DEPARTMENT | | | (LAB) | | | OF | | | | | | PATHOLOGY | | + + + + + + | BUN, PLASMA | 7 | 6 - 20 mg/dL | [facility] | | | (LAB) | | | DEPARTMENT | | | | | | OF | | | | | | PATHOLOGY | | + + + + + + | CREATININE | 0.59 (L) | 0.60 - 1.10 | [facility] | | | PLASMA | | mg/dL | DEPARTMENT | | | (LAB) | | | OF | | | | | | PATHOLOGY | | + + + + + + | SODIUM, | 135 | 134 - 143 | [facility] | | | PLASMA | | mmol/L | DEPARTMENT | | | (LAB) | | | OF | | | | | | PATHOLOGY | | + + + + + + | POTASSIUM, | 3.9 | 3.4 - 5.0 | [facility] | | | PLASMA | | mmol/L | DEPARTMENT | | | (LAB) | | | OF | | | | | | PATHOLOGY | | + + + + + + | CHLORIDE, | 106 | 97 - 108 mmol/L | [facility] | | | PLASMA | | | DEPARTMENT | | | (LAB) | | | OF | | | | | | PATHOLOGY | | + + + + + + | TOTAL CO2, | 23 | 23 - 31 mmol/L | [facility] | | | PLASMA | | | DEPARTMENT | | | (LAB) | | | OF | | | | | | PATHOLOGY | | + + + + + + | CALCIUM, | 8.3 (L) | 8.6 - 10.2 | [facility] | | | PLASMA | | mg/dL | DEPARTMENT | | | (LAB) | | | OF | | | | | | PATHOLOGY | | + + + + + + + + | Specimen | + + | Blood - Blood | + + + + + | Narrative | Performed At | + + + | New Reference ranges effective 07 for: Sodium, | [facility] | | Potassium, Chloride,Total CO2, Calcium | DEPARTMENT OF | | | PATHOLOGY | + + + + + + + + | Performing | Address | City/State/Zipcode | Phone Number | | Organization | | | | + + + + + | [facility] | [phone] | [place] [address] | | | PATHOLOGY | [address] | | | + + + + + | [facility] | [address] [place] [address] | [place] [address] | | | PATHOLOGY | [address] | | | + + + + + TYPE AND SCREEN (12/27/2007 6:32 AM PDT) + + + + + + | Component | Value | Ref Range | Performed | Pathologist | | | | | At | Signature | + + + + + + | ABO GROUP | O | | [facility] | | | | | | DEPARTMENT | | | | | | OF | | | | | | PATHOLOGY | | + + + + + + | RH TYPE | Positive | | [facility] | | | | | | DEPARTMENT | | | | | | OF | | | | | | PATHOLOGY | | + + + + + + | Antibody | Negative | | [facility] | | | Screen | | | DEPARTMENT | | | [...] | + + + + + | [facility] DEPARTMENT OF | [address] | [place] [address] | | | PATHOLOGY | [address] | | | + + + + + | [facility] OF | [address] | [place] [address] | | | PATHOLOGY | [address] | | | + + + + + OPERATION RECORD (12/27/2007 12:00 AM PDT) + + | Procedure Note | + + | Mehran Granger Md - 12/27/2007 12:00 AM [facility] [id number] | | [id number] GEOVANNI SKELTON Molly [id number] | | Date: 12/27/2007 Attending Surgeon: Chris Ruano M.D. Market Research Consultant(s): | | Mehran Granger M.D. Preoperative Diagnosis(es): 1. Abdominal pain. 2. Partial | | small-bowel obstruction. Postoperative Diagnosis(es): 1. Abdominal pain. 2. | | Partial small-bowel obstruction. Procedures Performed: 1. Exploratory | | laparotomy. 2. Lysis of adhesions. Anesthesia: General endotracheal. | | Estimated Blood Loss: 100 mL. Specimens: None. Findings: Dense adhesions of the | | terminal ileum and cecum and omentum to the pelvic floor. There was a tight omental | | adhesion into the pelvis which crossed a loop of small-bowel. The patient's alimentary | | limb measured 140 cm, the biliary limb measured 30 cm, and the common channel measured | | 300 cm. The jejunojejunostomy was widely patent. Indications: Ms. Meehan is a | | 47-year-old woman who is post laparoscopic gastric bypass and subsequent panniculectomy | | who complains of 2 years of abdominal pain and intermittent nausea. She has had a | | diagnostic laparoscopy and was noted to have dense adhesions to her pelvis. | | Procedure: Ms. Meehan was correctly identified in the preoperative holding area. She | | was taken to the operating room and placed in supine position. General endotracheal | | anesthesia was induced, and the patient's abdomen was prepped and draped in the usual | | sterile fashion. A midline incision was made from just above the umbilicus to the pubic | | tubercle. The incision was carried down to the level of the fascia using electrocautery. | | The abdomen was entered sharply, and adhesions to the anterior abdominal wall were | | minimal and these were taken down sharply. The abdomen was explored, and each of the | | limbs of the Zoe-en-Y gastric bypass was carefully measured, and the measurements were | | as stated in the findings. Exploration of the pelvis revealed dense adhesions of the | | terminal ileum and cecum and the omentum to the pelvic floor. These adhesions were taken | | down with the combination of electrocautery and sharp dissection. We were able to free | | up all the loops of the terminal ileum from the pelvis relieving what we believed to be | | the adhesions which contributed to her abdominal pain and intermittent nausea and | | obstructive symptoms. The pelvis was then carefully inspected for hemostasis. The | | abdomen was then irrigated with 2 L of warm sterile saline. The fascia was then closed | | using two #1 Maxon sutures in a running fashion. The dermis was closed with loosely | | placed subdermal 2-0 Maxon interrupted sutures. The skin was then closed using surgical | | efren. Dressings were placed, and the patient was awakened from anesthesia. All | | sponge, needle, and instrument counts were correct at the end of the case. The patient | | was then extubated and taken to the PACU in good condition. Dr. Chris Ruano was | | present for the entire procedure. Joanna Cooper | | Hari Ruano. GQ / HS [id number] / [id number] / [id number] / | | | | Anesthesia: | | General endotracheal. | | | | | | Estimated Blood Loss: | | 100 mL. | | | | | | Specimens: | | None. | | | | | | Findings: | | Dense adhesions of the terminal ileum and cecum and omentum to the pelvic | | floor. There was a tight omental adhesion into the pelvis which crossed a | | loop of small-bowel. The patient's alimentary limb measured 140 cm, the | | biliary limb measured 30 cm, and the common channel measured 300 cm. The | | jejunojejunostomy was widely patent. | | | | | | Indications: | | Ms. Meehan is a 47-year-old woman who is post laparoscopic gastric bypass | | and subsequent panniculectomy who complains of 2 years of abdominal pain | | and intermittent nausea. She has had a diagnostic laparoscopy and was | | noted to have dense adhesions to her pelvis. | | | | | | Procedure: | | Ms. Meehan was correctly identified in the preoperative holding area. She | | was taken to the operating room and placed in supine position. General | | endotracheal anesthesia was induced, and the patient's abdomen was prepped | | and draped in the usual sterile fashion. A midline incision was made from | | just above the umbilicus to the pubic tubercle. The incision was carried | | down to the level of the fascia using electrocautery. The abdomen was | | entered sharply, and adhesions to the anterior abdominal wall were minimal | | and these were taken down sharply. The abdomen was explored, and each of | | the limbs of the Zoe-en-Y gastric bypass was carefully measured, and the | | measurements were as stated in the findings. Exploration of the pelvis | | revealed dense adhesions of the terminal ileum and cecum and the omentum to | | the pelvic floor. These adhesions were taken down with the combination of | | electrocautery and sharp dissection. We were able to free up all the loops | | of the terminal ileum from the pelvis relieving what we believed to be the | | adhesions which contributed to her abdominal pain and intermittent nausea | | and obstructive symptoms. The pelvis was then carefully inspected for | | hemostasis. The abdomen was then irrigated with 2 L of warm sterile | | saline. The fascia was then closed using two #1 Maxon sutures in a running | | fashion. The dermis was closed with loosely placed subdermal 2-0 Maxon | | interrupted sutures. The skin was then closed using surgical efren. | | Dressings were placed, and the patient was awakened from anesthesia. All | | sponge, needle, and instrument counts were correct at the end of the case. | | The patient was then extubated and taken to the PACU in good condition. | | Dr. Chris Ruano was present for the entire procedure. | | | | | | | | | | | | | | | | | | Mehran Granger M.D. | | | | | | | | | | | | | | Chris Ruano M.D. | | | | | | GQ / HS | | [id number] / [id number] / [id number] / | | | | | | | | | | | | | | | | | | | | | | | + + documented in this encounter Visit Diagnoses Not on filedocumented in this encounter Administered Medications + +--------+ +--------+------+------+ | Medication Order | MAR | Action | Dose | Rate | Site | | | Action | Date | | | | + +--------+ +--------+------+------+ | acetaminophen (aka TYLENOL) | Given | 12/31/19 | 650 mg | | | | tablet 650 mg 650 mg, oral, | | 08 10:00 | | | | | EVERY 6 HOURS, First dose on Thu | | AM PDT | | | | | 12/29/07 at 1000, Until | | | | | | | Discontinued | | | | | | + +--------+ +--------+------+------+ +-------+ +--------+---+---+ | Given | 12/31/19 | 650 mg | | | | | 08 4:00 | | | | | | AM PDT | | | | +-------+ +--------+---+---+ | Given | 12/30/19 | 650 mg | | | | | 08 10:00 | | | | | | PM PDT | | | | +-------+ +--------+---+---+ +---+---+ | | | +---+---+ + +---------+ +---+ +---+ | bupivacaine 0.1 %-hydromorphone | New Bag | 12/29/19 | | 10 mL/hr | | | 10 mcg/mL epidural infusion | | 08 12:21 | | | | | epidural, CONTINUOUS, Starting | | AM PDT | | | | | 12/27/07 at 0945, Until Wed | | | | | | | 12/29/07 at 0954 | | | | | | + +---------+ +---+ +---+ +---------+ +---+ +---+ | New Bag | 12/27/19 | | 10 mL/hr | | | | 08 11:10 | | | | | | AM PDT | | | | +---------+ +---+ +---+ +---+---+ | | | +---+---+ + +---------+ +---+-------+---+ | dextrose 5%-NaCl 0.45%-KCl 20 | New Bag | 12/28/19 | | 100 | | | mEq/L IV infusion intravenous, | | 08 7:12 | | mL/hr | | | CONTINUOUS, Starting Thu12/27/07 | | AM PDT | | | | | at 1100, Until Thu12/29/07 at | | | | | | | 1445, at 100 mL/hr | | | | | | + +---------+ +---+-------+---+ +---------+ +---+-------+---+ | New Bag | 12/27/19 | | 100 | | | | 08 11:00 | | mL/hr | | | | AM PDT | | | | +---------+ +---+-------+---+ +---+---+ | | | +---+---+ + +---------+ +---+-------+---+ | dextrose 5%-NaCl 0.45%-KCl 20 | New Bag | 12/29/19 | | 100 | | | mEq/L IV infusion intravenous, | | 08 3:30 | | mL/hr | | | CONTINUOUS, Starting Thu12/29/07 | | PM PDT | | | | | at 1530, Until Thu12/30/07 at | | | | | | | 0836, at 100 mL/hr | | | | | | + +---------+ +---+-------+---+ +---+---+ | | | +---+---+ + +---------+ +---+ +---+ | dextrose 5%-NaCl 0.45%-KCl 20 | New Bag | 12/30/19 | | 50 mL/hr | | | mEq/L IV infusion intravenous, | | 08 8:45 | | | | | CONTINUOUS, Starting [place] 12/30/07 | | AM PDT | | | | | at 0845, Until Thu12/30/07 at | | | | | | | 1835, at 50 mL/hr | | | | | | + +---------+ +---+ +---+ +---+---+ | | | +---+---+ + +-------+ +--------+---+---+ | fentanyl (aka SUBLIMAZE) | Given | 12/27/19 | 25 mcg | | | | injection 25-200 mcg 25-200 mcg, | | 08 11:00 | | | | | intravenous, POSTPROCEDURE PRN, | | AM PDT | | | | | Starting 12/27/07 at 0933, | | | | | | | Until Thu12/27/07 at 1240, | | | | | | | moderate pain | | | | | | + +-------+ +--------+---+---+ +---+---+ | | | +---+---+ + +-------+ +--------+---+---+ | HYDROmorphone (aka DILAUDID) | Given | 12/27/19 | 0.2 mg | | | | injection 0.2-2 mg 0.2-2 mg, | | 08 11:00 | | | | | intravenous, POSTPROCEDURE PRN, | | AM PDT | | | | | Starting 12/27/07 at 0933, | | | | | | | Until Thu12/27/07 at 1240, | | | | | | | moderate pain | | | | | | + +-------+ +--------+---+---+ +---+---+ | | | +---+---+ + +-------+ +-------+---+---+ | lansoprazole (aka PREVACID) | Given | 12/31/19 | 30 mg | | | | capsule 30 mg 30 mg, oral, | | 08 9:00 | | | | | DAILY, First dose on 12/27/07 | | AM PDT | | | | | at 1400, Until Discontinued | | | | | | + +-------+ +-------+---+---+ +-------+ +-------+---+---+ | Given | 12/30/19 | 30 mg | | | | | 08 9:00 | | | | | | AM PDT | | | | +-------+ +-------+---+---+ | Given | 12/29/19 | 30 mg | | | | | 08 9:00 | | | | | | AM PDT | | | | +-------+ +-------+---+---+ +---+---+ | | | +---+---+ + +-------+ +--------+---+---+ | levothyroxine tablet 50 mcg 50 | Given | 12/31/19 | 50 mcg | | | | mcg, oral, DAILY, First dose on | | 08 9:00 | | | | | 12/27/07 at 1400, Until | | AM PDT | | | | | Discontinued | | | | | | + +-------+ +--------+---+---+ +-------+ +--------+---+---+ | Given | 12/30/19 | 50 mcg | | | | | 08 9:00 | | | | | | AM PDT | | | | +-------+ +--------+---+---+ | Given | 12/29/19 | 50 mcg | | | | | 08 9:00 | | | | | | AM PDT | | | | +-------+ +--------+---+---+ +---+---+ | | | +---+---+ + +-------+ + +---+---+ | NaCl 0.9 % IV bolus 1,000 mL, | Given | 07/15/20 | 1,000 mL | | | | intravenous, ONCE, 1 dose, Tue | | 08 9:15 | | | | | 12/28/07 at 0900 | | AM PDT | | | | + +-------+ + +---+---+ +---+---+ | | | +---+---+ + +-------+ +------+---+---+ | ondansetron (aka ZOFRAN) | Given | 12/30/19 | 4 mg | | | | injection 4 mg 4 mg, | | 08 1:21 | | | | | intravenous, EVERY 12 HOURS | | PM PDT | | | | | NEEDED, Starting Thu12/27/07 at | | | | | | | 0940, Until Thu12/31/07 at 1957, | | | | | | | nausea/vomiting | | | | | | + +-------+ +------+---+---+ +-------+ +------+---+---+ | Given | 12/29/19 | 4 mg | | | | | 08 10:13 | | | | | | AM PDT | | | | +-------+ +------+---+---+ +---+---+ | | | +---+---+ + +-------+ +-------+---+---+ | oxycodone CR (aka OXYCONTIN) | Given | 12/31/19 | 40 mg | | | | tablet 40 mg 40 mg, oral, TWICE | | 08 9:00 | | | | | DAILY, First dose on Thu12/28/07 | | AM PDT | | | | | at 0900, Until Discontinued | | | | | | + +-------+ +-------+---+---+ +-------+ +-------+---+---+ | Given | 12/30/19 | 40 mg | | | | | 08 9:00 | | | | | | PM PDT | | | | +-------+ +-------+---+---+ | Given | 12/30/19 | 40 mg | | | | | 08 9:00 | | | | | | AM PDT | | | | +-------+ +-------+---+---+ +---+---+ | | | +---+---+ + +-------+ +-------+---+---+ | oxycodone immediate release | Given | 12/31/19 | 30 mg | | | | (aka ROXICODONE) tablet 5-30 mg | | 08 1:53 | | | | | 5-30 mg, oral, EVERY 3 HOURS | | PM PDT | | | | | NEEDED, Starting Thu12/29/07 at | | | | | | | 0953, Until Thu12/31/07 at 1957, | | | | | | | severe pain | | | | | | + +-------+ +-------+---+---+ +-------+ +-------+---+---+ | Given | 12/31/19 | 15 mg | | | | | 08 4:38 | | | | | | AM PDT | | | | +-------+ +-------+---+---+ | Given | 12/31/19 | 15 mg | | | | | 08 1:10 | | | | | | AM PDT | | | | +-------+ +-------+---+---+ +---+---+ | | | +---+---+ + +-------+ +-------+---+---+ | promethazine (aka PHENERGAN) | Given | 12/30/19 | 25 mg | | | | liquid 25 mg 25 mg, oral, EVERY | | 08 8:02 | | | | | 6 HOURS NEEDED, Starting Wed | | PM PDT | | | | | 12/29/07 at 1012, Until Fri | | | | | | | 12/31/07 at 1957, nausea/vomiting | | | | | | + +-------+ +-------+---+---+ +-------+ +-------+---+---+ | Given | 12/30/19 | 25 mg | | | | | 08 7:03 | | | | | | AM PDT | | | | +-------+ +-------+---+---+ | Given | 12/30/19 | 25 mg | | | | | 08 1:14 | | | | | | AM PDT | | | | +-------+ +-------+---+---+ +---+---+ | | | +---+---+ + +-------+ +--------+---+---+ | propranolol ER (aka INDERAL LA) | Given | 12/30/19 | 160 mg | | | | capsule 160 mg 160 mg, oral, AT | | 08 10:00 | | | | | BEDTIME, First dose (after last | | PM PDT | | | | | modification) on Thu12/28/07 at | | | | | | | 2100, Until Discontinued | | | | | | + +-------+ +--------+---+---+ +---+---+ | | | +---+---+ documented in this encounter
--- OUTSIDE RECORDS SUMMARY | ~2019-10-16 | XMS | Encounter Summary ---
Demographics + + + | Address | [address] | | | [place] [address] | + + + | Home Phone [...] Team Providers + +------+ + | Care Utility Clerk Name | Role | Phone | + [...]
--- OUTSIDE RECORDS SUMMARY | ~2019-10-16 | XMS | Encounter Summary ---
Demographics + + + | Address | [address] | | | [place] [address] | + + + | Home Phone | | + + + | Preferred Language | Unknown | + + + | Marital Status | | + + + | Taoism Affiliation | 1001 | + + + | Race | Unknown | + + + | Ethnic Group | Unknown | + + + Author + + + | Author | [facility] | | | and Jairana | + + + | Organization | [facility] | | | [...] Team Providers + +------+ + | Care Motorcycle Deliverer Name | Role | Phone | + [...] Description | +--------+--------+ + + + | 06/11/ | Refill | [facility] | Alanis, | Medication Refill | | 2017 | | MEDICINE [address] [place] [address] | MD Pterona | | | | | [facility] | [address] [place] [address] | | | | | [place] [address] | [place] [address] | | | | | [phone] | [phone] | | | | | | | [...] | | | | | | [place] [address] | | | | | | [phone] | | | | | | | | +--------+ + + + + | 12/20/ | Office | Audiology | DarioElisabet ramires MS | | | 2019 | Visit | | [facility] [address] | | | | | | [address] [place] | | | | | | [place], [place] [address] | | | | | | [phone] | | | | | | | | +--------+ + + + + | 12/20/ | Office | Otolaryngology | Ulysses Genao MD | | | 2019 | Visit | | [address] | | | | | | [address] [place], | | | | | | [place] [address] | | | | | | [phone] | | | | | | | | +--------+ + + + + documented as of this encounter Visit Diagnoses Not on filedocumented in this encounter"
--- OUTSIDE RECORDS SUMMARY | ~2019-10-16 | XMS | Encounter Summary ---
Demographics + + + | Address | [address] | | | [place] [address] | + + + | Home Phone | | + + + | Preferred Language | Unknown | + + + | Marital Status | Single | + + + | Judaism Affiliation | ADV | + + + | Race | White | + + + | Ethnic Group | Not or | + + + Author + + + | Author | [facility] | + + + | Organization | [facility] | + + + | Address [...] Team Providers + +------+ + | Care Sponge Hooker Name | Role | Phone | + +------+ + | Pedrito Gutierrez MD | PCP | | + +------+ + Encounter Details +--------+---------+ + + + | Date | Type | Department | Care Team | Description | +--------+---------+ + + + | 11/24/ | Office | Preoperative | 2, [facility] [address] | Other Specified | | 2007 | Visit | Medicine Clinic at | [facility] [address] | Pre-Operative | | | | [facility] 4th Floor [address] | [place] [address] | Examination; | | | | [address] | | Hemorrhagic Disorder | | | | Mailcode: CH4S | | due to Intrinsic | | | | [facility] | | Circulating | | | | and Healing, | | Anticoagulants | | | | Building [address] [facility] | | | | | | [place], [place] | | | | | | [address] | | | | | | [phone] | | | +--------+---------+ + + + [...] | Blood Pressure | 128/72 | 11/25/2007 2:09 PM | | | | | PDT | | + + + + + | Pulse | 62 | 11/25/2007 2:09 PM | | | | | PDT | | + + + + + | Temperature | 37.1 C (98.8 F) | 11/25/2007 2:09 PM | | | | | PDT | | + + + + + | Respiratory Rate | 12 | 11/25/2007 2:09 PM | | | | | PDT | | + + + + + | Oxygen Saturation | 99% | 11/25/2007 2:09 PM | | | | | PDT | | + + + + + | Inhaled Oxygen | - | - | | | Concentration | | | | + + + + + | Weight | 87.1 kg (192 lb) | 11/25/2007 2:09 PM | | | | | PDT | | + + + + + | Height | 175.3 cm (5' 9") | 11/25/2007 2:09 PM | | | | | PDT | | + + + + + | Body Mass Index | 28.35 | 11/25/2007 2:09 PM | | | | | PDT | | + + + + + documented in this encounter Progress Notes Marco Antonio Rader RN - 11/29/2007 12:50 PM PDTSee Scanned H&P. documented in this en counter Plan of Treatment + +------+--------+ + + | Name | Type | Priori | Associated Diagnoses | Order Schedule | | | | ty | | | + +------+--------+ + + | TYPE AND SCREEN | Lab | Routin | Other Specified | Ordered: 11/25/2007 | | | | e | Pre-Operative | | | | | | Examination | | + +------+--------+ + + | 12 LEAD ECG | ECG | Routin | Other Specified | Ordered: 11/25/2007 | | | | e | Pre-Operative | | | | | | Examination | | + +------+--------+ + + | 12 LEAD ECG | ECG | Routin | Other Specified | Ordered: 11/25/2007 | | | | e | Pre-Operative | | | | | | Examination | | + +------+--------+ + + documented as of this encounter Procedures + +--------+ + + + | Procedure Name | Priori | Date/Time | Associated Diagnosis | Comments | | | ty | | | | + +--------+ + + + | INR | Routin | 11/25/2007 | Hemorrhagic | Results for this | | | e | 2:39 PM | Disorder due to | procedure are in the | | | | PDT | Intrinsic | results section. | | | | | Circulating | | | | | | Anticoagulants | | + +--------+ + + + | COMPLETE METABOLIC | Routin | 11/25/2007 | Other Specified | Results for this | | SET | e | 2:39 PM | Pre-Operative | procedure are in the | | (NA,K,CL,CO2,BUN,CRE | | PDT | Examination | results section. | | AT,GLUC,CA,AST,ALT,B | | | | | | DEYA TOTAL,ALK | | | | | | PHOS,ALB,PROT TOTAL) | | | | | + +--------+ + + + | CBC ONLY | Routin | 11/25/2007 | Other Specified | Results for this | | | e | 2:39 PM | Pre-Operative | procedure are in the | | | | PDT | Examination | results section. | + +--------+ + + + | APTT (ACT. PART. | Routin | 11/25/2007 | Hemorrhagic | Results for this | | THROMBO TIME) | e | 2:39 PM | Disorder due to | procedure are in the | | | | PDT | Intrinsic | results section. | | | | | Circulating | | | | | | Anticoagulants | | + +--------+ + + + | 12 LEAD ECG | Routin | 11/25/2007 | | Results for this | | | e | 2:12 PM | | procedure are in the | | | | PDT | | results section. | + +--------+ + + + documented in this encounter Results INR (PT) (11/25/2007 2:39 PM PDT) + + + + + + | Component | Value | Ref Range | Performed | Pathologist | | | | | At | Signature | + + + + + + | INR | 1.06Comment: | 0.90 - 1.20 INR | [facility] | | | | PT INR Therapeutic | | DEPARTMENT | | | | ranges for full | | OF | | | | anticoagulation: | | PATHOLOGY | | | | INR for | | | | | | Venous Thromboembolism | | | | | | | | | | | | (2.0-3.0) INR | | | | | | INR for most | | | | [...] + | [facility] DEPARTMENT OF | [address] | [place] [address] | | | PATHOLOGY | [address] | | | + + + + + | [facility] DEPARTMENT OF | [address] | [place] [address] | | | PATHOLOGY | [address] | | | + + + + + APTT (ACT. PART. THROMBO TIME) (11/25/2007 2:39 PM PDT) + + + + + + | Component | Value | Ref Range | Performed | Pathologist | | | | | At | Signature | + + + + + + | APTT | 28.4Comment: | 26.0 - 36.0 | [facility] | | | | APTT Therapeutic Range | seconds | DEPARTMENT | | | | | | OF | | | | (75-120) | | PATHOLOGY | | | | sec | | | | | | Heparin levels of | | | | | | 0.35-0.7 U/mL | | | | + + + + + + + + | Specimen | + + | Blood - Blood | + + + + + + + | Performing | Address | City/State/Zipcode | Phone Number | | Organization | | | | + + + + + | [facility] DEPARTMENT OF | [address] | [place] [address] | | | PATHOLOGY | [address] | | | + + + + + | [facility] DEPARTMENT OF | [address] | [place] [address] | | | PATHOLOGY | [address] | | | + + + + + CBC ONLY (11/25/2007 2:39 PM PDT) + +-------+ + + + | Component | Value | Ref Range | Performed | Pathologist | | | | | At | Signature | + +-------+ + + + | WHITE CELL | 8.7 | 4.4 - 11.0 K/cu | [facility] | | | COUNT | | mm | DEPARTMENT | | | | | | OF | | | | | | PATHOLOGY | | + +-------+ + + + | RED CELL | 4.79 | 4.00 - 5.20 | [facility] | | | COUNT | | M/cu mm | DEPARTMENT | | | | | | OF | | | | | | PATHOLOGY | | + +-------+ + + + | HEMOGLOBIN | 15.0 | 12.0 - 16.0 | [facility] | | | | | g/dL | DEPARTMENT | | | | | | OF | | | | | | PATHOLOGY | | + +-------+ + + + | HEMATOCRIT | 43.5 | 36.0 - 46.0 % | [facility] | | | | | | DEPARTMENT | | | | | | OF | | | | | | PATHOLOGY | | + +-------+ + + + | MCV | 90.9 | 80.0 - 96.0 fL | [facility] [...] +-------+ + + + | RDW | 13.1 | 11.5 - 15.0 % | [facility] | | | | | | DEPARTMENT | | | | | | OF | | | | | | PATHOLOGY | | + +-------+ + + + | PLATELET | 232 | 150 - 400 K/cu | [facility] [...] DEPARTMENT OF | [address] | [place] [address] | | | PATHOLOGY | [address] | | | + + + + + | [facility] DEPARTMENT OF | [address] | [place] [address] | | | PATHOLOGY | [address] | | | + + + + + COMPLETE METABOLIC SET (NA,K,CL,CO2,BUN,CREAT,GLUC,CA,AST,ALT,BILI TOTAL,ALK PHOS,ALB,PROT TOTAL) (11/25/2007 2:39 PM PDT) + +-------+ + + + | Component | Value | Ref Range | Performed | Pathologist | | | | | At | Signature | + +-------+ + + + | GLUCOSE, | 71 | 60 - 99 mg/dL | [facility] [...] +-------+ + + + | CREATININE | 0.7 | 0.6 - 1.1 mg/dL | [facility] | | | PLASMA | | | DEPARTMENT | | | (LAB) | | | OF | | | | | | PATHOLOGY | | + +-------+ + + + | TOTAL | 6.9 | 6.1 - 7.9 g/dL | [facility] | | | PROTEIN, | | | DEPARTMENT | | | PLASMA | | | OF | | | (LAB) | | | PATHOLOGY | | + +-------+ + + + | ALBUMIN, | 3.8 | 3.5 - 4.7 g/dL | [facility] | | | PLASMA | | | DEPARTMENT | | | (LAB) | | | OF | | | | | | PATHOLOGY | | + +-------+ + + + | CALCIUM, | 9.3 | 8.5 - 10.5 | [facility] | | | PLASMA | | mg/dL | DEPARTMENT | | | (LAB) | | | OF | | | | | | PATHOLOGY | | + +-------+ + + + | BILIRUBIN | 0.7 | 0.3 - 1.2 mg/dL | [facility] | | | TOTAL | | | DEPARTMENT | | | | | | OF | | | | | | PATHOLOGY | | + +-------+ + + + | ALK PHOS | 97 | 42 - 98 U/L | [facility] | | | | | | DEPARTMENT | | | | | | OF | | | | | | PATHOLOGY | | + +-------+ + + + | AST(SGOT) | 26 | 15 - 41 U/L | [facility] | | | | | | DEPARTMENT | | | | | | OF | | | | | | PATHOLOGY | | + +-------+ + + + | SODIUM, | 141 [...] +-------+ + + + | CHLORIDE, | 105 | 98 - 107 mmol/L | [facility] | | | PLASMA | | | DEPARTMENT | | | (LAB) | | | OF | | | | | | PATHOLOGY | | + +-------+ + + + | TOTAL CO2, | 28 | 23 - 29 mmol/L | [facility] | | | PLASMA | | | DEPARTMENT | | | (LAB) | | | OF | | | | | | PATHOLOGY | | + +-------+ + + + | ALT (SGPT) | 27 | 13 - 48 U/L | [facility] | | | | | | DEPARTMENT | | | | | | OF | | | | | | PATHOLOGY | | + +-------+ + + + + + | Specimen | + + | Blood - Blood | + + + + + | Narrative | Performed At | + + + | [id number] Estimated GFR > 60 mL/min/1.73 sq m if non- | [facility] | | Malagasy [id number] Estimated GFR > 60 mL/min/1.73 sq m if | DEPARTMENT OF | | [place] GFR is estimated using the MDRD equation recommended by | PATHOLOGY | | the National Kidney Disease Education Program. Estimated GFR | | | Interpretive Information: <60 mL/min/1.73 sq m Chronic Kidney | | | Disease <15 mL/mon/1.73 sq m Kidney Failure Estimated GFR | | | greater than 60mL/min/1.73 is of limited clinical Value. The MDRD | | | equation is not valid in the following situations: - Patients under | | | 18 years of age - Severe malnutrition or obesity - Vegetarian diet | | | - Rapidly changing kidney function | | + + + + + + + + | Performing | Address | City/State/Zipcode | Phone Number | | Organization | | | | + + + + + | [facility] | [address] | [place] [address] | | | PATHOLOGY | [address] | | | + + + + + | [facility] | [address] [place] [address] | [place] [address] | | | PATHOLOGY | [address] | | | + + + + + 12 LEAD ECG (11/25/2007 2:12 PM PDT) + + + + + + | Component | Value | Ref Range | Performed | Pathologist | | | | | At | Signature | + + + + + + | VENTRICULAR | 63 | BPM | [facility] | | | RATE | | | OF | | | | | | CARDIOLOGY | | + + + + + + | ATRIAL RATE | 63 | BPM | [facility] | | | | | | OF | | | | | | CARDIOLOGY | | + + + + + + | P-R | 166 | ms | [facility] | | | INTERVAL | | | OF | | | | | | CARDIOLOGY | | + + + + + + | QRS | 84 | ms | [facility] | | | DURATION | | | OF | | | | | | CARDIOLOGY | | + + + + + + | QT | 406 | ms | [facility] | | | | | | OF | | | | | | CARDIOLOGY | | + + + + + + | QTC | 416 | ms | [facility] | | | | | | OF | | | | | | CARDIOLOGY | | + + + + + + | P AXIS | 62 | degrees | [facility] | | | | | | OF | | | | | | CARDIOLOGY | | + + + + + + | R AXIS | 55 | degrees | [facility] | | | | | | OF | | | | | | CARDIOLOGY | | + + + + + + | T AXIS | 84 | degrees | [facility] | | | | | | OF | | | | | | CARDIOLOGY | | + + + + + + | EKG | Normal sinus | | [facility] | | | DIAGNOSIS | rhythmNormal ECG"I have | | OF | | | | personally interpreted | | CARDIOLOGY | | | | this report, either | | | | | | alone or with a | | | | | | trainee."Confirmed by | | | | | | NIRMALA GABRIEL ([id number]) on | | | | | | 29-Nov-2007 11:02:51 | | | | + + + + + + | LINK TO | | | [facility] | | | [facility] | | | OF | | | (ECG | | | CARDIOLOGY | | | VIEWER) | | | | | + + + + + + + + | Specimen | + + | | + + + + + | Narrative | Performed At | + + + | Ordered by an | [facility] DEPT OF | | unspecified provider. Please click on view image for the detailed | CARDIOLOGY | | interpretation from [employer] results. | | |results. | | | | | + + + + + + + + | Performing | Address | City/State/Zipcode | Phone Number | | Organization | | | | + + + + + | [facility] OF | [address] | [place], [place] | | | CARDIOLOGY | [address] | [address] | | + + + + + | [facility] OF | [address] | [place], [place] | | | CARDIOLOGY | [address] | [address] | | + + + + + documented in this encounter Visit Diagnoses + + | Diagnosis | + + | Other specified pre-operative examination | + + | Hemorrhagic disorder due to intrinsic circulating anticoagulants | + + documented in this encounter
--- OUTSIDE RECORDS SUMMARY | ~2019-10-16 | XMS | Encounter Summary ---
Demographics + + + | Address | [address] | | | [place] [address] | + + + | Home Phone [...] + + + | Author | [facility] | + + + | Organization | [facility] | + + + | [...] Team Providers + +------+ + | Care Costume Shop Coordinator Name | Role | Phone | + +------+ + | Pedrito Gutierrez MD | PCP | | + +------+ + Reason for Visit + + + | Reason | Comments | + + + | Physical therapy | | | assessment | | + + + Encounter Details +--------+---------+ + + + | Date | Type | Department | Care Team | Description | +--------+---------+ + + + | 06/24/ | Office | Comprehensive Pain | Nathalia Cantu | Chronic Abdominal | | 2006 | Visit | [facility] | [address] | Pain; Cervical Pain; | | | | [place] [address] [place], | Pain in Joint, Site | | | | [address] Mailcode: | [place] [address] | Unspecified; | | | | [facility] | | Depression | | | | [facility] and He[facility], | | | | | | Building | | | | | | Floor [place], [place] | | | | | | [address] | | | | | | [phone] | | | +--------+---------+ + + + [...] documented as of this encounter Progress Notes MaiteNathalia - 06/23/2006 8:03 AM PSTFormatting of this note might be different from lesli gomez. PROGRESS NOTE: PHYSICAL THERAPY MEDICARE INITIAL EVALUATION NOTE Date: 06/23/2006 Name: Belinda Meehan [id number] y.o. female Start of Care: 06/23/2005 Referring Provider: Pedrito Gutierrez Primary Diagnosis: 789.00BQ CHRONIC ABDOMINAL PAIN 723.1L CERVICAL PAIN 719.40 PAIN IN JOINT, SITE UNSPECIFIED 311G DEPRESSION Referral Diagnosis: 789.00BQ CHRONIC ABDOMINAL PAIN 723.1L CERVICAL PAIN 719.40 PAIN IN JOINT, SITE UNSPECIFIED 311G DEPRESSION Date of Onset: 05/29/2006 Insurance: Medicare Number of used/authorized visits: 06/19 Medicare certification from: 06/15/2006 through 07/15/2006 SUBJECTIVE: Spinal symptoms started about 10 years ago, have become worse the last few gregory hs. Handedness: right [place]: [place], [place] Chief Complaint: Headaches and cervical pain, bilateral lower extremity symptoms,R>L, and abdominal pain. Date of Onset: 05/29/2006 HPI: Pt. correlates her current physical status to being extremely obese 10 years ago, lu es any specific injury or trauma except for a cervical whiplash injury that occurred about 3 0 years ago for which she continued to have symptoms. Pt. has had a gastric bypass in 2003, and about a year ago began having abdominal pain, source unknown at this time, multiple diag nostic tests have been done and are negative. Pt's lower extremity symptoms are correlated t o her lowback pain, this has been chronic for at least 10 years. 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 Comment: 2005 endoscopy Past Surgical History: GASTRIC BYPASS Mayra Padgett Comment: wt 278 01/18 PANICULECTOMY HX CHOLECYSTECTOMY HX HYSTERECTOMY HX SALPINGO-OOPHORECTOMY COLONOSCOPY Comment: 03/2006 HX TONSILLECTOMY OK D&C AFTER DELIVERY OK INJECT TRIGGER POINT, 1 OR 2 Medications: Current outpatient prescriptions: GERITOL OR tonix with ferrix; 2 tsp daily MULTIVITAMIN OR twice daily DOCUSATE SODIUM 100 MG CAP twice daily CALCIUM + D 600 MG-200 UNIT TAB 4 tabs daily VITAMIN C 500 MG CAP twice daily MAGNESIUM 200 MG TAB 2 tabs twice daily VITAMIN E 400 UNIT CAP once daily PRILOSEC 20 MG CAP take 1 capsule (20mg) by oral route once daily before a meal GERITOL COMPLETE OR 2 x daily CYANOCOBALAMIN 1,000 MCG TAB 1 x monthly GLUCOSAMINE 1500 COMPLEX OR daily ASPIRIN OR None Entered PROMETHAZINE 25 MG TAB prn WELLBUTRIN XL 300 MG 24 HR TAB take 1 tablet (300mg) by oral route once daily BELLADONNA ALKALOID-PHOSPHORUS OR None Entered OXYCODONE 15 MG TAB q. 3 hrs PRN pt. is currently taking promethzine, oxycodone, and wellbutrin Diagnostic Tests/Findings: Negative Employer: Pt. has been on disability for about 5 years. Physical Demands of Occupation: NA Leisure Activities: Reading, crafts including quilt making and cross stitch Functional Limitations: Sitting X 30 minutes maximum can vary, Standing and cooking X 10 minutes, then rests for about 20 minutes. Sleeping disturbed after 3-4 hours, wakes up from the pain, some of the time cannot return to sleep, oxycodone can help. Walking X 2 blocks. Throughout a 16 hour day, pt. sleeps 20 minutes at a time about every 2 hours. Pain Aggravated by: Bending, twisting, lifting which is curtailed because pt. doesn't ammon ate; eating certain foods can provoke abdominal symptoms, can be nuts, even yoghurt at times . Prolonged sitting or standing still Pain Eased by: Medication, sidelying with pillow, heat Pain Pattern Throughout theDay: Stiff/sore upon rising, pain level now 9/10, worst 10/10, b est 6/10 Special Questions: Cough/sneeze positive intermittently; headaches/migraines over 30 years, left optic nerve dysfunction since stroke around 1999, legally blind left eye, drop attacks questionable. Patient Goals: Figure out how to manage some of these symptoms without using pain medicatio n. Previous Treatment: Physical therapy for bilateral knees, hands, and shoulders. OBJECTIVE: Observation/Posture: Forward head, round shoulders Gait: Gait disturbance, pt. does use forearm crutches at home Palpation: Generalized tenderness lumbosacral paraspinals and gluteals, upper traps and sca lenes; also proximal insertion of rectus femoris and iliopsoas bilateral. Lumbar AROM: not tested, deferred Cervical AROM: Abnormal results recorded only Forward Flexion: pulling pain Extension: posterior focal symptoms, 60% of normal Right Rotation: 75% of normal reproduced ipsilateral pain Left Rotation: 60% of normal provoked both contralateral and ipsilateral symptoms Left equal to Right Lateral Flexion and reproduced ipsilateral and contralateral symptoms AROM: Extremities WNL PROM: not tested Passive Accessory: deferrred Strength/ RMIN: Manual muscle testing: deactivation and weakness of bilateral hip ABD/TFL, 4 to 4-/5; right ankle joint weakness secondary to previous achilles injury/repair. Weakne ss of bilateral quads secondary to pain, symptoms reproduced with resistance. Significant de activation and weakness of abdominals, poor ability to stabilize with lumbopelvic stabilizer s. Bilateral upper extremities deferred at this time. L/T Sensation: deferred Pinprick Sensation: not tested Proprioception/ Kinesthetic Awareness: Poor trunk and lower extremities; reported history o f falls, in fact 15-20 times the past couple of years, ie extremities giving out and also bl ack outs. Last fall was 2 months ago at which time pt. fell directly onto bilateral knee meri ints. DTR's: Bilateral KJ hyperreflexic, 3/4+; Right AJ absent, Left AJ 1/4+, then absent with re peated testing. Special Tests/ Joint Plays: Active Assistive supine SLR: Right positive at 45 degrees Left negative, reproduced ipsilateral groin/anterior hip symp toms Fabere: Positive bilateral Hip Quadrant: postive bilateral Prone Knee Bend positive bilateral Cervical Tests: Spurling's positive right, negative left Cervical Rotation/Extension: right postive, left negative Treatment Today: Evaluation only and discussion of results with pt. ASSESSMENT: Pt. is 46 year old female who presented with multiple medical problems and diff use body pain, especially cervical and abdominal pain; symptoms consistent with mechanical a nd myofascial sources, right upper extremity radiculopathy and possible facetogenic involvem ent. Treatment Diagnosis: 789.00BQ CHRONIC ABDOMINAL PAIN 723.1L CERVICAL PAIN 719.40 PAIN IN JOINT, SITE UNSPECIFIED 311G DEPRESSION Primary Diagnosis: 789.00BQ CHRONIC ABDOMINAL PAIN 723.1L CERVICAL PAIN 719.40 PAIN IN JOINT, SITE UNSPECIFIED 311G DEPRESSION Functional Goals: 1. Prevent injury by preventing falls 2. Sitting X 60 minutes, pain level <5/10 3. Standing and cooking X 30 minutes, pain level <5/10 4. Walking 1/4 of a mile, pain level <5/10 Short Term Goals: Establish home exercise program Rehab Potential for Stated Goals: Good PLAN: Establish complete plan of care with Miranda Lambert NGia and Dr. Andres Ogden, psycholog ist. Activate and strengthen core stabilizers Neuromuscular and posteral reeducation for spine Progressive strengthening and stabilization of bilateral hips Pt. may require further diagnostic tests for cervical spine as well as bilateral hip joints to rule out pathology. Frequency: 1 X/week X 4 visits concurrently with Psychology. Treatment began: 799 Treatment ende: 899 Nathalia Cantu, Physical Therapist, License number [id number] NATHALIA CANTU documented in this encoun ter Plan of Treatment + + +--------+ + + | Name | Type | Priori | Associated Diagnoses | Order Schedule | | | | ty | | | + + +--------+ + + | [facility] | Procedures | Routin | Chronic Abdominal | Ordered: 06/23/2006 | | EVALUATION | | e | Pain Cervical Pain | | | | | | Pain in Joint, Site | | | | | | Unspecified | | | | | | Depression | | + + +--------+ + + documented as of this encounter Visit Diagnoses + + | Diagnosis | + + | Chronic abdominal pain Abdominal pain, unspecified site | + + | Cervical pain Cervicalgia | + + | Pain in joint, site unspecified | + + | Depression Depressive disorder, not elsewhere classified | + + documented in this encounter"
--- OUTSIDE RECORDS SUMMARY | ~2019-10-16 | XMS | Encounter Summary ---
Demographics + + + | Address | [address] | | | [place] [address] | + + + | Home Phone | | + + + | Preferred Language | Unknown | + + + | Marital Status | | + + + | [employer] Affiliation | [id number] | + + + [...] Team Providers + +------+ + | Care Residential Builder Name | Role | Phone | [...] | | Osteoporosis | i, | [address] | | | | | , | [place] | [place], | | | | | unspecified | , [place] [address] | [place] [address] | | | | | osteoporosis | [address] | Phone: | | | | | type, | [place], | [phone] | | | | | unspecified | [place] | Fax: | | | | | pathological | [address] | [phone] | | | | | fracture | Phone: | | | | | | presence | [phone] | | | | | | Procedures | Fax: | | | | | | [place] | [phone] | | | | | | ZOLEDRONIC | | | | | | | ACID 1MG | | | +--------+ + + + + + Encounter Details +--------+ + + + + | Date | Type | Department | Care Team | Description | +--------+ + + + + | 08/18/ | Hospital | [facility] | Alanis, | Osteopenia, | | 2018 | Encounter | MED CTR OP INFUSION | MD [place] | unspecified location | | | | [address] | [address] [facility] | | | | | [place] | [place] [address] | | | | | [address] | [phone] | | | | | [phone] | | | +--------+ + + + [...] signed by: Roya Voss RN 08/18/2017 12:25 iNkita Guzman, PharmD - 08/18/2017 11:[address] Booth office and got verbal report of what pts most r ecent Scr was from her lab draw at [facility]. Marlyn PharmD reports it was 0.81 [...] | | | | | [place] [address] | | | | | | [phone] | | | | | | | | +--------+ + + + + | 12/20/ | Office | Audiology | Elisabet Munson MS | | | 2019 | Visit | | [address] | | | | | | [place] [address] [address] | | | | | | [place] [id number] | | | | | | [phone] | | | | | | | | +--------+ + + + + | 12/20/ | Office | Otolaryngology | Ulysses Genao MD | | | 2019 | Visit | | [address] [place] | | | | | | [address] [place], | | | | | | [place] [address] | | | | | | [phone] | | | | | | | [...]
--- OUTSIDE RECORDS SUMMARY | ~2019-10-16 | XMS | Encounter Summary ---
Demographics + + + | Address | [address] | | | [place] [address] | + + + | Home Phone | | + + + | Preferred Language | Unknown | + + + | Marital Status | | + + + | Muslim Affiliation | 1001 | + + + | Race | Unknown | + + + | Ethnic Group | Unknown | + + + Author + + + | Author | [facility] | | | and Jairana | + + + | Organization | [facility] | | | [...] Team Providers + +------+ + | Care Media Specialist Name | Role | Phone | [...] Description | +--------+--------+ + + + | 05/04/ | Refill | [facility] | Alanis, | Medication Refill | | 2016 | | MEDICINE [address] [place] [address] | MD Petrona | | | | | [facility] | [address] [place] [address] | | | | | [place] [address] | [place] [address] | | | | | [phone] | [phone] | | | | | | | [...] | | | | | | [place] [address] | | | | | | [phone] | | | | | | | | +--------+ + + + + | 12/20/ | Office | Audiology | DarioElisabet ramires MS | | | 2019 | Visit | | [facility] [address] | | | | | | [address] [place] | | | | | | [place], [place] [address] | | | | | | [phone] | | | | | | | | +--------+ + + + + | 12/20/ | Office | Otolaryngology | Ulysses Genao MD | | | 2019 | Visit | | [address] [place] | | | | | | [address] [place], | | | | | | [place] [address] | | | | | | [phone] | | | | | | | | +--------+ + + + + documented as of this encounter Visit Diagnoses Not on filedocumented in this encounter"
--- OUTSIDE RECORDS SUMMARY | ~2019-10-16 | XMS | Encounter Summary ---
Demographics + + + | Address | [address] | | | [place] [address] | + + + | Home Phone | | + + + | Preferred Language | Unknown | + + + | Marital Status | Single | + + + | Uatsdin Affiliation | ADV | + + + [...] Team Providers + +------+ + | Care Finishing Range Supervisor Name | Role | Phone | [...] as of this encounter Progress Notes Interface, Banner Painter In - 02/17/2006 3:04 AM [facility] [place] [address] [place], [place] [address] or October 02, 2001 Pedrito Gutierrez M.D. [facility] [address] [place] [address] RE: BELINDA GALARZA MR #: [id number] Dear Dr. 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 Sincerely, Issac Meeks M.D. archivist nonprofit foundation, Division of Endocrinology, Diabetes, and Clinical Joy Operator, Metabolic Disorders Clinic Ph#: [phone] [facility] / [id number] / [id number] / [id number] / C: 10/13/2001 praful [id number] signed by Interface, Banner Painter In at 02/17/2006 3:04 AM [facility] umented in this encounter Plan of Treatment Not on filedocumented as of this encounter Visit Diagnoses Not on filedocumented in this encounter"
--- OUTSIDE RECORDS SUMMARY | ~2019-10-16 | XMS | Encounter Summary ---
Demographics + + + | Address | [address] | | | [place] [address] | + + + | Home Phone | | + + + | Preferred Language | Unknown | + + + | Marital Status | Single | + + + | Adventist Affiliation | ADV | + + + | Race | White | + + + | Ethnic Group | Not or | + + + Author + + + | Author | [facility] | + + + | Organization | [facility] | + + + | [...] Team Providers + +------+ + | Care Golf Cart Maker Name | Role | Phone | [...] | | | Monique Dept | MD Chrsi | | | | | | | [address] | | | | | | | [address] | | | | | | | [place], | | | | | | | [place] | | | | | | | [address] | | | | | | | Phone: | | | | | | | [phone] | | | | | | | Fax: | | | | | | | [phone] | +--------+--------+ + + + + Encounter Details +--------+---------+ + + + | Date | Type | Department | Care Team | Description | +--------+---------+ + + + | 11/10/ | Office | Digestive Health | Chris Padgett, | Status Post | | 2007 | Visit | [place] [address] | [address] | Bariatric Surgery; | | | | Ave Mailcode: CH4S | [address] | Abdominal Pain, | | | | [facility] | [place], [place] | Other Specified Site | | | | and Healing, | [address] | | | | | Building | [phone] | | | | | Floor [place], [place] | | | | | | [address] | | | | | | [phone] | | | +--------+---------+ + + + [...] + + documented in this encounter Progress Chris Liu - 11/12/2007 3:12 PM PDTThis patient is [...]
--- OUTSIDE RECORDS SUMMARY | ~2019-10-16 | XMS | Encounter Summary ---
Demographics + + + | Address | [address] | | | [place] [address] | + + + | Home Phone [...] Team Providers + +------+ + | Care Front Window Cashier Name | Role | Phone | + [...] Description | +--------+--------+ + + + | 11/26/ | Refill | [facility] | Alanis, | Medication Refill | | 2018 | | MEDICINE [address] [place] [address] | MD Petrona | | | | | [facility] | [address] [place] [address] | | | | | [place] [address] | [place] [address] | | | | | [phone] | [phone] | | | | | | | [...] | | | | | | [place] [address] | | | | | | [phone] | | | | | | | | +--------+ + + + + | 12/20/ | Office | Audiology | Elisabet MunsonMS | | | 2019 | Visit | | [facility] [address] | | | | | | [address] [place] | | | | | | [place] [address] | | | | | | [phone] | | | | | | | | +--------+ + + + + | 12/20/ | Office | Otolaryngology | Ulysses Genao MD | | | 2019 | Visit | | [address] [place] | | | | | | [address] [place], | | | | | | [place] [address] | | | | | | [phone] | | | | | | | | +--------+ + + + + documented as of this encounter Visit Diagnoses + + | Diagnosis | + + | Chronic diarrhea Diarrhea | + + documented in this encounter"
--- OUTSIDE RECORDS SUMMARY | ~2019-10-16 | XMS | Encounter Summary ---
Demographics + + + | Address | [address] | | | [place] [address] | + + + | Home Phone [...] Team Providers + +------+ + | Care College President Name | Role | Phone | + +------+ + | Sulaiman Carrera MD | PCP | | + +------+ + Reason for Visit +--------+ + | Reason | Comments | +--------+ + | Other | | +--------+ + Encounter Details +--------+ + + + + | Date | Type | Department | Care Team | Description | +--------+ + + + + | 04/08/ | Telephone | [facility] Comprehensive | Rosi Antonio, | | | 2012 | | Pain Center at | ANP | | | | | [facility] | | | | | | [address] | | | | | | Mailcode: CH15P | | | | | | [facility] | | | | | | and Healing, | | | | | | | | | | | | Floor [place], [place] | | | | | | [address] | | | | | | [phone] | | | +--------+ + + + [...]
--- OUTSIDE RECORDS SUMMARY | ~2019-10-16 | XMS | Encounter Summary ---
Demographics + + + | Address | [address] | | | [place] [address] | + + + | Home Phone | | + + + | Preferred Language | Unknown | + + + | Marital Status | Single | + + + | Baptism Affiliation | ADV | + + + | Race | White | + + + | Ethnic Group | Not or | + + + Author + + + | Author | [facility] | + + + | Organization | [facility] | + + + | [...] Team Providers + +------+ + | Care Client Care Representative Name | Role | Phone | + +------+ + | Maria Esther Cintron MD | PCP | | + +------+ + Encounter Details +--------+------+ + + + | Date | Type | Department | Care Team | Description | +--------+------+ + + + | 12/21/ | Lab | Laboratory at [facility] | | Metabolic syndrome X | | 2012 | | [address] | | 250.80 (Primary | | | | Loop Physician's | | Dx); Hypothyroidism; | | | | [address], [address]rd floor | | Essential | | | | [place], [place] | | hypertension 401.9; | | | | [address] | | Type II or | | | | [phone] | | unspecified type | | | | | | diabetes mellitus | | | | | | with other specified | | | | | | manifestations, not | | | | | | stated as | | | | | | uncontrolled; | | | | | | Unspecified | | | | | | hypothyroidism; | | | | | | Unspecified | | | | | | essential | | | | | | hypertension | +--------+------+ + + + Social History + + [...] + | CBC ONLY | Routin | 12/21/2012 | Metabolic syndrome | Results for this | | | e | 2:51 PM | X 250.80 | procedure are in the | | | | PDT | Hypothyroidism | results section. | | | | | Essential | | | | | | hypertension 401.9 | | + +--------+ + + + | VITAMIN D, | Routin | 12/21/2012 | Metabolic syndrome | Results for this | | 25-HYDROXY, SERUM | e | 2:51 PM | X 250.80 | procedure are in the | | | | PDT | Hypothyroidism | results section. | | | | | Essential | | | | | | hypertension 401.9 | | + +--------+ + + + | LYME AB IMMUNOBLOT, | Routin | 12/21/2012 | Metabolic syndrome | Results for this | | SERUM | e | 2:51 PM | X 250.80 | procedure are in the | | | | PDT | Hypothyroidism | results section. | | | | | Essential | | | | | | hypertension 401.9 | | + +--------+ + + + | COMPLETE METABOLIC | Routin | 12/21/2012 | Metabolic syndrome | Results for this | | SET | e | 2:51 PM | X 250.80 | procedure are in the | | (NA,K,CL,CO2,BUN,CRE | | PDT | | results section. | | AT,GLUC,CA,AST,ALT,B | | | | | | DEYA TOTAL,ALK | | | | | | PHOS,ALB,PROT TOTAL) | | | | | + +--------+ + + + | CBC ONLY | Routin | 12/21/2012 | Metabolic syndrome | Results for this | | | e | 2:51 PM | X 250.80 | procedure are in the | | | | PDT | Hypothyroidism | results section. | | | | | Essential | | | | | | hypertension 401.9 | | + +--------+ + + + | PTH, SERUM | Routin | 12/21/2012 | Metabolic syndrome | Results for this | | | e | 2:51 PM | X 250.80 | procedure are in the | | | | PDT | Hypothyroidism | results section. | | | | | Essential | | | | | | hypertension 401.9 | | + +--------+ + + + | TSH | Routin | 12/21/2012 | Metabolic syndrome | Results for this | | | e | 2:51 PM | X 250.80 | procedure are in the | | | | PDT | Hypothyroidism | results section. | | | | | Essential | | | | | | hypertension 401.9 | | + +--------+ + + + | VITAMIN B-12 | Routin | 12/21/2012 | Metabolic syndrome | Results for this | | | e | 2:51 PM | X 250.80 | procedure are in the | | | | PDT | Hypothyroidism | results section. | | | | | Essential | | | | | | hypertension 401.9 | | + +--------+ + + + | HEMOGLOBIN A1C, | Routin | 12/21/2012 | Metabolic syndrome | Results for this | | BLOOD | e | 2:51 PM | X 250.80 | procedure are in the | | | | PDT | Hypothyroidism | results section. | | | | | Essential | | | | | | hypertension 401.9 | | + +--------+ + + + | IRON AND TIBC, SERUM | Routin | 12/21/2012 | Metabolic syndrome | Results for this | | | e | 2:51 PM | X 250.80 | procedure are in the | | | | PDT | Hypothyroidism | results section. | | | | | Essential | | | | | | hypertension 401.9 | | + +--------+ + + + documented in this encounter Results COMPLETE METABOLIC SET (NA,K,CL,CO2,BUN,CREAT,GLUC,CA,AST,ALT,BILI TOTAL,ALK PHOS,ALB,PROT TOTAL) (12/21/2012 2:51 PM PDT) + +---------+ + + + | Component | Value | Ref Range | Performed | Pathologist | | | | | At | Signature | + +---------+ + + + | GLUCOSE, | 87 | 60 - 99 mg/dL | [facility] | | | PLASMA | | | LABORATORY | | | (LAB) | | | SERVICES, | | | | | | CORE | | + +---------+ + + + | BUN, PLASMA | 6 | 6 - 20 mg/dL | [facility] | | | (LAB) | | | LABORATORY | | | | | | SERVICES, | | | | | | CORE | | + +---------+ + + + | CREATININE | 0.60 | 0.60 - 1.10 | [facility] | | | PLASMA | | mg/dL | LABORATORY | | | (LAB) | | | SERVICES, | | | | | | CORE | | + +---------+ + + + | EGFR | >60 | >60 mL/min | [facility] | | | - | | | LABORATORY | | | LIBYAN | | | SERVICES, | | | | | | CORE | | + +---------+ + + + | EGFR NON | >60 | >60 mL/min | [facility] | | | -BRADEN | | | LABORATORY | | | RICAN | | | SERVICES, | | | | | | CORE | | + +---------+ + + + | SODIUM, | 143 | 136 - 145 | [facility] | | | PLASMA | | mmol/L | LABORATORY | | | (LAB) | | | SERVICES, | | | | | | CORE | | + +---------+ + + + | POTASSIUM, | 3.9 | 3.4 - 5.0 | [facility] | | | PLASMA | | mmol/L | LABORATORY | | | (LAB) | | | SERVICES, | | | | | | CORE | | + +---------+ + + + | CHLORIDE, | 104 | 97 - 108 mmol/L | [facility] | | | PLASMA | | | LABORATORY | | | (LAB) | | | SERVICES, | | | | | | CORE | | + +---------+ + + + | TOTAL CO2, | 31 | 21 - 32 mmol/L | [facility] | | | PLASMA | | | LABORATORY | | | (LAB) | | | SERVICES, | | | | | | CORE | | + +---------+ + + + | CALCIUM, | 9.2 | 8.6 - 10.2 | [facility] | | | PLASMA | | mg/dL | LABORATORY | | | (LAB) | | | SERVICES, | | | | | | CORE | | + +---------+ + + + | BILIRUBIN | 0.4 | 0.3 - 1.2 mg/dL | [facility] | | | TOTAL | | | LABORATORY | | | | | | SERVICES, | | | | | | CORE | | + +---------+ + + + | TOTAL | 7.4 | 6.4 - 8.2 g/dL | [facility] | | | PROTEIN, | | | LABORATORY | | | PLASMA | | | SERVICES, | | | (LAB) | | | CORE | | + +---------+ + + + | ALBUMIN, | 4.0 | 3.5 - 4.7 g/dL | [facility] | | | PLASMA | | | LABORATORY | | | (LAB) | | | SERVICES, | | | | | | CORE | | + +---------+ + + + | ALK PHOS | 163 (H) | 42 - 98 U/L | [facility] | | | | | | LABORATORY | | | | | | SERVICES, | | | | | | CORE | | + +---------+ + + + | AST(SGOT) | 35 | 15 - 41 U/L | [facility] | | | | | | LABORATORY | | | | | | SERVICES, | | | | | | CORE | | + +---------+ + + + | ALT (SGPT) | 41 | 12 - 60 U/L | [facility] | | | | | | LABORATORY | | | | | | SERVICES, | | | | | | CORE | | + +---------+ + + + | ANION | 8 | 4 - 11 mmol/L | [facility] | | | GAP(ALB | | | LABORATORY | | | CORRECTED) | | | SERVICES, | | | | | | CORE | | + +---------+ + + + | POTASSIUM | No Hemo | | [facility] | | | CMNT | | | LABORATORY | | | | | | SERVICES, | | | | | | CORE | | + +---------+ + + + | BILI T CMNT | No Hemo | | [facility] | | | | | | LABORATORY | | | | | | SERVICES, | | | | | | CORE | | + +---------+ + + + | AST CMNT | No Hemo | | [facility] | | | | | | LABORATORY | | | | | | SERVICES, | | | | | | CORE | | + +---------+ + + + | ANION GAP | 8 | mmol/L | [facility] | | | | | | LABORATORY | | | | | | SERVICES, | | | | | | CORE | | + +---------+ + + + + + | Specimen | + + | Blood - Blood | + + + + + | Narrative | Performed At | + + + | GFR is estimated using the MDRD equation recommended by the | [facility] | | National Kidney Disease Education Program. Estimated GFR | LABORATORY | | Interpretive Information: <60 mL/min/1.73 sq m | SERVICES, CORE | | Chronic Kidney Disease <15 mL/min/1.73 sq m | | | Kidney Failure Estimated GFR greater that 60 mL/min/1.73 sq m is of | | | limited clinical value. The MDRD equation is not valid in the | | | following situations: - Patients under 18 years of age - Severe | | | malnutrition or obesity - Vegetarian diet - Rapidly changing kidney | | | function New reference range effective 2012 for Total proteins | | | performed in Core Lab only. | | + + + + + + + + | Performing | Address | City/State/Zipcode | Phone Number | | Organization | | | | + + + + + | [facility] | [address] | [place] [address] | | | SERVICES, CORE | [address] | | | + + + + + CBC (12/21/2012 2:51 PM PDT) + + + + + + | Component | Value | Ref Range | Performed | Pathologist | | | | | At | Signature | + + + + + + | WBC COUNT | 7.1 | 4.4 - 11.0 K/cu | [facility] | | | | | mm | LABORATORY | | | | | | SERVICES, | | | | | | CORE | | + + + + + + | RED CELL | 4.47 | 4.00 - 5.20 | [facility] | | | COUNT | | M/cu mm | LABORATORY | | | | | | SERVICES, | | | | | | CORE | | + + + + + + | HEMOGLOBIN | 14.7 | 12.0 - 16.0 | [facility] | | | | | g/dL | LABORATORY | | | | | | SERVICES, | | | | | | CORE | | + + + + + + | HEMATOCRIT | 44.6 | 36.0 - 46.0 % | [facility] | | | | | | LABORATORY | | | | | | SERVICES, | | | | | | CORE | | + + + + + + | MCV | 99.8 (H) | 80.0 - 96.0 fL | [facility] | | | | | | LABORATORY | | | | | | SERVICES, | | | | | | CORE | | + + + + + + | MCHC | 32.9 (L) | 33.4 - 35.5 | [facility] | | | | | g/dL | LABORATORY | | | | | | SERVICES, | | | | | | CORE | | + + + + + + | RDW | 12.4 | 11.5 - 15.0 % | [facility] | | | | | | LABORATORY | | | | | | SERVICES, | | | | | | CORE | | + + + + + + | PLATELET | 205 | 150 - 400 K/cu | [facility] | | | COUNT | | mm | LABORATORY | | | | | | SERVICES, | | | | | | CORE | | + + + + + + + + | Specimen | + + | Blood - Blood | + + + + + + + | Performing | Address | City/State/Zipcode | Phone Number | | Organization | | | | + + + + + | [facility] | [address] | [place] [address] | | | SERVICES, CORE | [address] | | | + + + + + HEMOGLOBIN A1C, BLOOD (12/21/2012 2:51 PM PDT) + + + + + + | Component | Value | Ref Range | Performed | Pathologist | | | | | At | Signature | + + + + + + | HEMOGLOBIN | 5.7 (H)Comment: Hgb A1c | <=5.6 % | [facility] - | | | A1C | Interpretive Information | | [facility] - | | | | If you are | | [place] | | | | screening for diabetes: | | | | | | <5.7 | | | | | | Non-diabetic | | | | | | 5.7-6.4 | | | | | | Prediabetes | | | | | | >6.4 | | | | | | Diabetes, if confirmed | | | | | | For monitoring of | | | | | | diabetes control: | | | | | | <7.0 | | | | | | Usual goal of treatment; | | | | | | low risk for | | | | | | complications | | | | | | 7.0-8.0 Some | | | | | | increased risk for | | | | | | long-term complications | | | | | | >8.0 | | | | | | Higher risk of | | | | | | complications; strongly | | | | | | consider | | | | | | | | | | | | intensifying therapy. | | | | + + + + + + + + | Specimen | + + | Blood - Blood | + + + + + + + | Performing | Address | City/State/Zipcode | Phone Number | | Organization | | | | + + + + + | [facility] | [address] | [place] [address] | | | [place] | | | | + + + + + VITAMIN B-12, SERUM (12/21/2012 2:51 PM PDT) + + + + + + | Component | Value | Ref Range | Performed | Pathologist | | | | | At | Signature | + + + + + + | VITAMIN B12 | >2000 (H) | 190 - 910 pg/ml | [facility] | | | | | | LABORATORY | | | | | | SERVICES, | | | | | | SPECIAL IMM | | | | | | + COAG | | + + + + + + + + | Specimen | + + | Blood - Blood | + + + + + | Narrative | Performed At | + + + | New reference range and methodology effective 07/26/12. | [facility] | | | LABORATORY | | | SERVICES, | | | SPECIAL IMM + | | | COAG | + + + + + + + + | Performing | Address | City/State/Zipcode | Phone Number | | Organization | | | | + + + + + | [facility] | [address] | [place] [address] | | | SERVICES, SPECIAL | [address] | | | | IMM + COAG | | | | + + + + + IRON AND TIBC, SERUM (12/21/2012 2:51 PM PDT) + +-------+ + + + | Component | Value | Ref Range | Performed | Pathologist | | | | | At | Signature | + +-------+ + + + | IRON | 114 | 30 - 160 ug/dL | [facility] | | | | | | LABORATORY | | | | | | SERVICES, | | | | | | CORE | | + +-------+ + + + | IRON BIND | 430 | 240 - 450 ug/dL | [facility] | | | CAP | | | LABORATORY | | | | | | SERVICES, | | | | | | CORE | | + +-------+ + + + | % | 27 | 20 - 50 % | [facility] | | | SATURATION | | | LABORATORY | | | TRANSFERRIN | | | SERVICES, | | | , | | | CORE | | + +-------+ + + + + + | Specimen | + + | Blood - Blood | + + + + + + + | Performing | Address | City/State/Zipcode | Phone Number | | Organization | | | | + + + + + | [facility] | [address] | [place] [address] | | | SERVICES, CORE | [address] | | | + + + + + PTH, SERUM (12/21/2012 2:51 PM PDT) + + + + + + | Component | Value | Ref Range | Performed | Pathologist | | | | | At | Signature | + + + + + + | PARATHYROID | 222.9 (H) | 15.0 - 85.0 | [facility] | | | . INTACT | | pg/ml | LABORATORY | | | | | | SERVICES, | | | | | | SPECIAL IMM | | | | | | + COAG | | + + + + + + + + | Specimen | + + | Blood - Blood | + + + + + | Narrative | Performed At | + + + | New reference range and methodology effective 07/26/12. | [facility] | | | LABORATORY | | | SERVICES, | | | SPECIAL IMM + | | | COAG | + + + + + + + + | Performing | Address | City/State/Zipcode | Phone Number | | Organization | | | | + + + + + | [facility] | [address] | [place] [address] | | | SERVICES, SPECIAL | [address] | | | | IMM + COAG | | | | + + + + + LYME AB WESTERN BLOT, SERUM (12/21/2012 2:51 PM PDT) + + + + + + | Component | Value | Ref Range | Performed | Pathologist | | | | | At | Signature | + + + + + + | LYME | NegativeComment: Band(s) | Negative | [facility] | | | IMMUNOBLOT | present: | | REG UNIV | | | IGG, SERUM | NONE(Insufficient number | | PTH - INTFC | | | | of bands for positive | | | | | | result)INTERPRETIVE | | | | | | INFORMATION: Borrelia | | | | | | Burgdorferi Ab, | | | | | | IgGWestern Blot For this | | | | | | assay, a positive | | | | | | result is reported when | | | | | | any 5 ormore of the | | | | | | following 10 bands are | | | | | | present: 18, 23, 28, | | | | | | 30,39, 41, 45, 58, 66, | | | | | | or 93 kDa. All other | | | | | | banding patternsare | | | | | | reported as negative. | | | | + + + + + + | LYME | NegativeComment: Band(s) | Negative | [facility] | | | IMMUNOBLOT | present: | | REG UNIV | | | IGM, SERUM | NONE(Insufficient number | | PTH - INTFC | | | | of bands for positive | | | | | | result)INTERPRETIVE | | | | | | INFORMATION: Borrelia | | | | | | Burgdorferi Antibody,IgM | | | | | | [place] Blot For this | | | | | | assay, a positive result | | | | | | is reported when any 2 | | | | | | ormore of the following | | | | | | bands are present: 23, | | | | | | 39, or 41 kDa. All other | | | | | | banding patterns are | | | | | | reported as | | | | | | negative.Performed by | | | | | | [address] | | | | | | [address], [facility] [place] | | | | | | [address] | | | | | | [phone].[employer]. | | | | | | Get rosario, | | | | | | , Lab. Director | | | | + + + + + + + + | Specimen | + + | Blood - Blood | + + + + + + + | Performing | Address | City/State/Zipcode | Phone Number | | Organization | | | | + + + + + | [facility] | [address] | [place], [place] | | | UNIV PTH - INTFC | | [address] | | + + + + + VITAMIN D, 25-HYDROXY, SERUM (12/21/2012 2:51 PM PDT) + +-------+ + + + | Component | Value | Ref Range | Performed | Pathologist | | | | | At | Signature | + +-------+ + + + | VITAMIN D | 30.3 | 30 - 80 ng/mL | [facility] | | | 25 HYDROXY | | | LABORATORY | | | | | | SERVICES, | | | | | | SPECIAL IMM | | | | | | + COAG | | + +-------+ + + + + + | Specimen | + + | Blood - Blood | + + + + + | Narrative | Performed At | + + + | REFERENCE INTERVAL: Vitamin D, 25-Hydroxy 0-17years: | [facility] | | Deficiency: less than 20 ng/mL Optimum level: | LABORATORY | | greater than or equal to 20 ng/mL* | SERVICES, | | *(Flores CL et al. Pediatrics 2008; 122:1128-38.) 18 | SPECIAL IMM + | | years and older: Deficiency: less than 20 | COAG | | ng/mL Insufficiency: 20-29 ng/mL | | | Optimum Level: 30-80 ng/mL High: | | | 81-150 ng/ml Toxic: Greater than | | | 150 ng/mL This assay accurately quantifies the sum of Vitamin D3 | | | 25-hydroxy and Vitamin D2, 25-hydroxy. | | + + + + + + + + | Performing | Address | City/State/Zipcode | Phone Number | | Organization | | | | + + + + + | [facility] | [address] | [place] [address] | | | SERVICES, SPECIAL | [address] | | | | IMM + COAG | | | | + + + + + TSH (12/21/2012 2:51 PM PDT) + + + + + + | Component | Value | Ref Range | Performed | Pathologist | | | | | At | Signature | + + + + + + | TSH | 0.96Comment: Normal TSH | 0.34 - 5.60 | [facility] | | | | value in : | mcIU/mL | [facility] | | | | 0.5-2.5. uIU/ml | | [place] | | + + + + + + + + | Specimen | + + | Blood - Blood | + + + + + + + | Performing | Address | City/State/Zipcode | Phone Number | | Organization | | | | + + + + + | [facility] | [address] | [place] [address] | | | [facility] | | | | + + + + + documented in this encounter Visit Diagnoses + + | Diagnosis | + + | Metabolic syndrome X 250.80 - Primary Type II or unspecified type diabetes mellitus | | with other specified manifestations, not stated as uncontrolled | + + | Hypothyroidism Unspecified hypothyroidism | + + | Essential hypertension 401.9 Unspecified essential hypertension | + + | Unspecified hypothyroidism | + + documented in this encounter"
--- OUTSIDE RECORDS SUMMARY | ~2019-10-16 | XMS | Encounter Summary ---
Demographics + + + | Address | [address] | | | [place] [address] | + + + | Home Phone [...] Team Providers + +------+ + | Care Model And Mold Maker Name | Role | Phone | [...] | | | | Clinical Nutrition | [place], [place] | | | | | [address] | [address] | | | | | Loop Mailcode: OPC5 | [phone] | | | | | Outpatient Clinic | | | | | | [facility] | | | | | | [place] [address] | | | | | | [phone] | | | +--------+ + + + [...] | | | | | performed by [facility] | | | | | [...] [facility] | [address] | [place], [place] | | | [facility] | | [address] | | + + + + + HEMOGLOBIN A1C (05/31/2002 3:21 PM PST) + + + + + + | Component | Value | Ref Range | Performed | Pathologist | | | | | At | Signature | + + + + + + | HEMOGLOBIN | 6.0Comment: Test | <7.1 % | | | | A1C | performed by [facility] | | | | | | St [...] | + + + + + | [facility] | [address] | [place] [address] | | | LABORATORY | | | [...] | + + + + + | [facility] DEPARTMENT OF | [address] | [place] [address] | | | PATHOLOGY | [address] | | | + + + + + | [facility] DEPARTMENT OF | [address] | [place] [address] | | | PATHOLOGY | [address] [...] + + + + + | [facility] | [address] | [place] [address] | | | PATHOLOGY | [address] | | | + + + + + | [facility] | [address] [facility] | [place] [address] | | | PATHOLOGY | [address] | | | + + + + + documented in this encounter Visit Diagnoses Not on filedocumented in this encounter"
--- OUTSIDE RECORDS SUMMARY | ~2019-10-16 | XMS | Encounter Summary ---
Demographics + + + | Address | [address] | | | [place] [address] | + + + | Home Phone [...] Providers + +------+ + | Care Clinical Informatics Physician Name | Role | Phone | [...] Description | +--------+--------+ + + + | 10/08/ | Refill | Kraig Turner | Beto Meeks MD | Refill Request | | 2009 | | [facility] | [address] | | | | | [facility] | [place], [place] | | | | | [address] | [address] | | | | | [address] | [phone] | | | | | [facility] | | | | | | Physician's | | | | | | Pavilion [place], | | | | | | [place] [address] | | | | | | [phone] | | | +--------+--------+ + + + [...]
--- OUTSIDE RECORDS SUMMARY | ~2019-10-16 | XMS | Encounter Summary ---
Demographics + + + | Address | [address] | | | [place] [address] | + + + | Home Phone | | + + + | Preferred Language | Unknown | + + + | Marital Status | | + + + | Gnosticist Affiliation | 1001 | + + + | Race | Unknown | + + + | Ethnic Group | Unknown | + + + Author + + + | Author | [facility] | | | and Jairana | + + + | Organization | [facility] | | | [...] Team Providers + +------+ + | Care Systems Technician Name | Role | Phone | + +------+ + | Petrona Thapa | PCP | | | MD | | | + +------+ + Reason for Visit + + + | Reason | Comments | + + + | Foot Pain | | + + + Encounter Details +--------+ + + + + | Date | Type | Department | Care Team | Description | +--------+ + + + + | 07/01/ | Telephone | [facility] | Alanis, | Foot Pain | | 2018 | | MEDICINE [address] [place] [address] | MD Petrona | | | | | [facility] | [address] [place] [address] | | | | | [place] [address] | [place] [address] | | | | | [phone] | [phone] | | | | | | | [...] | | | | | [place] [address] | | | | | | [phone] | | | | | | | | +--------+ + + + + | 12/20/ | Office | Audiology | Elisabet Munson MS | | 2019 | Visit | | [facility] [address] | | | | | | [address] [place] | | | | | | [place] [address] | | | | | | [phone] | | | | | | | | +--------+ + + + + | 12/20/ | Office | Otolaryngology | Ulysses Genao MD | | | 2020 | Visit | | [address] | | | | | | [address] [place], | | | | | | [place] [address] | | | | | | [phone] | | | | | | | | +--------+ + + + + documented as of this encounter Visit Diagnoses Not on filedocumented in this encounter"
--- OUTSIDE RECORDS SUMMARY | ~2019-10-16 | XMS | Encounter Summary ---
Demographics + + + | Address | [address] | | | [place] [address] | + + + | Home Phone | | + + + | Preferred Language | Unknown | + + + | Marital Status | | + + + | Tenriism Affiliation | 1001 | + + + [...] Team Providers + +------+ + | Care Polysomnographer Name | Role | Phone | + +------+ + | Petrona Thapa | PCP | | | MD | | | + +------+ + Encounter Details +--------+ + + + + | Date | Type | Department | Care Team | Description | +--------+ + + + + | 12/07/ | Abstract | [facility] | Alanis, | | | 2017 | | MEDICINE [address] | MD Petrona | | | | | [address] [facility] | [address] [facility] | | | | | [place] [address] | [place] [address] | | | | | [phone] | [phone] | | | | | | | [...] | | | | | | [place] [address] | | | | | | [phone] | | | | | | | | +--------+ + + + + | 12/20/ | Office | Audiology | Elisabet Munson MS | | | 2019 | Visit | | [facility] [address] | | | | | | [address] | | | | | | [place] [address] | | | | | | [phone] | | | | | | | | +--------+ + + + + | 12/20/ | Office | Otolaryngology | Ulysses Genao MD | | | 2020 | Visit | | [address] | | | | | | [address] [place], | | | | | | [place] [address] | | | | | | [phone] | | | | | | | | +--------+ + + + + documented as of this encounter Procedures + +--------+ + + + | Procedure Name | Priori | Date/Time | Associated Diagnosis | Comments | | | ty | | | | + +--------+ + + + | DEXA BONE DENSITY | Routin | 04/01/2016 | | Results for this | | STUDY MARTHA GILLIAM | e | | | procedure are in the | | ASSESSMENT | | | | results section. | + +--------+ + + + documented in this encounter Results DEXA Bone Density wo Rowdy Bray (04/01/2016) + +-------+ + + + | Component | Value | Ref Range | Performed | Pathologist | | | | | At | Signature | + +-------+ + + + | EXT LOWEST | -2.3 | | | | | T-SCORE | | | | | + +-------+ + + + documented in this encounter Visit Diagnoses Not on filedocumented in this encounter"
--- OUTSIDE RECORDS SUMMARY | ~2019-10-16 | XMS | Encounter Summary ---
Demographics + + + | Address | [address] | | | [place] [address] | + + + | Home Phone [...] Team Providers + +------+ + | Care Collector Of Aquarium Specimens Name | Role | Phone | + [...] | Medicine and | Low back | Emmy-Cristin | Carlos Armijo MD | | | | Rehabilitatio | pain | i, | [address] | | | | n | | Petrona | [address] [place] | | | | | MD [address] | [place] | | | | | | [address] | [address] Phone: | | | | | | [place], | [phone] | | | | | | [place] | Fax: | | | | | | [address] | [phone] | | | | | | Phone: | | | | | | | [phone] | | | | | | | Fax: | | | | | | | [phone] | | +--------+--------+ + + + + Encounter Details +--------+---------+ + + + | Date | Type | Department | Care Team | Description | +--------+---------+ + + + | 11/28/ | Office | [facility] | Carlos Hsieh | NO SHOW (Primary Dx) | | 2014 | Visit | PHYSIATRY [address] | T, [address] | | | | [address] | [place], [place] | | | | | [place], [place] | [address] | | | | | [address] | | | | | | [phone] | Joe, | | | | | | MARY Montero [address] | | | | | | [address] | | | | | | [place] [address] | | | | | | [phone] | | | | | | | [...] documented in this encounter Plan of Treatment +--------+ [...] | | | | | [place] [address] | | | | | | [phone] | | | | | | | | +--------+ + + + + | 12/20/ | Office | Audiology | Elisabet MunsonMS | | | 2019 | Visit | | [facility] [address] | | | | | | [address] [place] | | | | | | [place] [address] | | | | | | [phone] | | | | | | | | +--------+ + + + + | 12/20/ | Office | Otolaryngology | Ulysses Genao MD | | | 2019 | Visit | | [address] | | | | | | [address] [place], | | | | | | [place] [address] | | | | | | [phone] | | | | | | | | +--------+ + + + + documented as of this encounter Visit Diagnoses + + | Diagnosis | + + | No Show - Primary Code used for vists where the patient is not seen | + + documented in this encounter"
--- OUTSIDE RECORDS SUMMARY | ~2019-10-16 | XMS | Encounter Summary ---
Demographics + + + | Address | [address] | | | [place] [address] | + + + | Home Phone [...] Team Providers + +------+ + | Care Resource Manager Forester Name | Role | Phone | + +------+ + | Pedrito Gutierrez MD | PCP | | + +------+ + Encounter Details +--------+ + + + + | Date | Type | Department | Care Team | Description | +--------+ + + + + | 12/09/ | Documentati | Anesthesiology | Unknown . | | | 2004 | on | [address] | | | | | | [place], | | | | | | [place] [address] | | | +--------+ + + + [...] + + + | ANESTHESIA/SEDATION | | 12/09/2004 | | Results for this | | | | 10:30 AM | | procedure are in the | | | | PDT | | results section. | + +--------+ + + + documented in this encounter Results ANESTHESIA/SEDATION (12/09/2004 10:30 AM PDT) + + + | Narrative | Performed At | + + + | Ordered by an unspecified provider. | | + + + + + | Transcriptions | + + | 12/09/2004 10:30 AM PDT Anesthesia PostOp Report | | | | Patient: BELINDA MEEHAN J Med Rec: [id number] Sex F Bdate: 1960 | | Date/Time Data | | Entered Into [facility] | | Anesth PostOp | | Surgery Date [id number] 12/09/04 10:30 | | [id number] 11/23/03 10:57 | | Anesthesiologist SYEDA ANDREWS 12/09/04 10:30 | | KO MONTGOMERY 11/23/03 10:57 | | Resident Anesthesiolog LOPEZ REYNOLDS 12/09/04 10:30 | | Complications | | None/None Reported YES 11/23/03 12:25 | | Outcomes Information | | Satisfied with care YES 11/23/03 12:25 | | Info obtained from PATIENT 11/23/03 12:25 | | Outcome of Anesthesia NO CHANGE IN HOSPITAL COURSE 11/23/03 12:25 | | | + + documented in this encounter Visit Diagnoses Not on filedocumented in this encounter"
--- OUTSIDE RECORDS SUMMARY | ~2019-10-16 | XMS | Encounter Summary ---
Demographics + + + | Address | [address] | | | [place] [address] | + + + | Home Phone [...] Team Providers + +------+ + | Care Potato Chip Maker Name | Role | Phone | + +------+ + | Petrona Thapa | PCP | | | MD | | | + +------+ + Reason for Visit + + + | Reason | Comments | + + + | Paperwork | | + + + Encounter Details +--------+ + + + + | Date | Type | Department | Care Team | Description | +--------+ + + + + | 03/02/ | Telephone | [facility] | Alanis, | Paperwork | | 2017 | | MEDICINE [address] [place] [address] | MD Petrona | | | | | [facility] | [address] [place] [address] | | | | | [place] [address] | [place] [address] | | | | | [phone] | [phone] | | | | | | | [...] | | | | | [place] [address] | | | | | | [phone] | | | | | | | | +--------+ + + + + | 12/20/ | Office | Audiology | Elisabet Munson MS | | 2019 | Visit | | [facility] [address] | | | | | | [address] [place] | | | | | | [place] [address] | | | | | | [phone] | | | | | | | | +--------+ + + + + | 12/20/ | Office | Otolaryngology | Ulysses Genao MD | | | 2020 | Visit | | [address] | | | | | | [address] [place], | | | | | | [place] [address] | | | | | | [phone] | | | | | | | | +--------+ + + + + documented as of this encounter Visit Diagnoses Not on filedocumented in this encounter"
--- OUTSIDE RECORDS SUMMARY | ~2019-10-16 | XMS | Encounter Summary ---
Demographics + + + | Address | [address] | | | [place] [address] | + + + | Home Phone | | + + + | Preferred Language | Unknown | + + + | Marital Status | | + + + | Congregation Affiliation | 1001 | + + + | Race | Unknown | + + + | Ethnic Group | Unknown | + + + Author + + + | Author | [facility] | | | and Jairana | + + + | Organization | [facility] | | | [...] Team Providers + +------+ + | Care Rating Clerk Name | Role | Phone | [...] | | | | 6/ APRIL | Petrona | [address] | | | | | PENDING | [address] | [place], | | | | | | [address] | [place] [address] | | | | | | [place], | Phone: | | | | | | [place] | [phone] | | | | | | [address] | Fax: | | | | | | Phone: | [phone] | | | | | | [phone] | | | | | | | Fax: | | | | | | | [phone] | | +--------+ + + + + + Encounter Details +--------+---------+ + + + | Date | Type | Department | Care Team | Description | +--------+---------+ + + + | 12/30/ | Office | [facility] | Ulysses Genao MD | Benign paroxysmal | | 2018 | Visit | OTOLARYNGOLOGY [address] | [address] | positional vertigo, | | | | [address] | [address] [place], | unspecified | | | | [place], [place] | [place] [address] | laterality (Primary | | | | [address] | [phone] | Dx); Dysfunction of | | | | [phone] | | left eustachian tube | +--------+---------+ [...] negative nichole ft to it. Her speech veterinary receptionist threshold is 20 dB in the right [...] | | | | | [place], [place] [address] | | | | | | [phone] | | | | | | | | +--------+ + + + + | 12/20/ | Office | Audiology | Elisabet Munson MS | | | 2019 | Visit | | [facility] [address] | | | | | | [address] [place] | | | | | | [place] [address] | | | | | | [phone] | | | | | | | | +--------+ + + + + | 12/20/ | Office | Otolaryngology | Ulysses Genao MD | | | 2019 | Visit | | [address] | | | | | | [address] [place], | | | | | | [place] [address] | | | | | | [phone] | | | | | | | [...]
--- OUTSIDE RECORDS SUMMARY | ~2019-10-16 | XMS | Encounter Summary ---
Demographics + + + | Address | [address] | | | [place] [address] | + + + | Home Phone [...] Team Providers + +------+ + | Care Home Economics Expert Name | Role | Phone | + [...] Rom results of | | | | [facility] | | several radiology | | | | [address] | | studies) | | | | Mailcode: CH15P | | | | | | [facility] | | | | | | and Healing, | | | | | | Building | | | | | | Floor [place], [place] | | | | | | [address] | | | | | | [phone] | | | +--------+ + + + [...] | + +--------+ + + + | [place] MRI LOWER EXTREM | Routin | 08/22/2005 [...] | + +--------+ + + + | [place] MRI LOWER EXTREM | Routin | 03/05/2005 [...] + | NAME: BELINDA MEEHAN MR #: [id number] | [facility] | | DATE OF EXAM: [id number] [...] WITH A | | | HERNIATED NUCLEUS PULPOSUS. 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 Transcribed By: Armaan Rivera | | | H : [id number] : 1442 Approved By: Radiologist: | | + + + + + + + + | Performing | Address | City/State/Zipcode | Phone Number | | Organization | | | | + + + + + | [facility] | [address] | [place], [place] | | | [place] [facility] | [address] | [address] | | | TESTS | | | | + + + + + | [facility] | [address] | [place], [place] | | | TESTS | [address] | [address] | | + + + + + [...] + + + + | [facility] | [address] | [place], [place] | | | [place] [facility] | [facility] | [address] | | | TESTS | | | | + + + + + | [facility] | [address] | [place], [place] | | | TESTS | [facility] | [address] | | + + + + + SPINE THORACIC 2 VIEWS (10/01/2005) + + + | Impressions | Performed At | + + + | SPINE THORACIC 2 VIEW AT 1416 HOURS THORACIC SPINE, 10/01/05 | [facility] | | HISTORY: Back pain. FINDINGS: [...] By: Armaan Mata : | | | [id number] : 1137 Approved By: | | + + + + + + + + | Performing | Address | City/State/Zipcode | Phone Number | | Organization | | | | + + + + + | [facility] | [address] | [place], [place] | | | [place] [facility] | [address] | [address] | | | TESTS | | | | + + + + + | [facility] | [address] [facility] [address] | [place], [place] | | | TESTS | [address] | [address] | | + + + + + MRI SPINE CERVICAL WO CONTRAST (10/01/2005) + + + | Impressions | Performed At | + + + | SPINE LUMBAR 2 VIEWS AT 1421 HOURS LUMBAR SPINE, 10/01/05 | [facility] | | HISTORY: Back pain. FINDINGS: AP and lateral views of the lumbar | CARE TESTS | | spine show five pev-boo-qgooioq lumbar vertebrae in normal alignment | | [...] | | | SPONDYLOSIS. Transcribed By: Armaan Mata : [id number] : | | | 1402 Approved By: | | + + + + + + + + | Performing | Address | City/[facility] | Phone Number | | Organization | | | | + + + + + | [facility] | [address] | [place], [place] | | | [place] [facility] | [address] | [address] | | | TESTS | | | | + + + + + | [facility] | [address] | [place], [place] | | | TESTS | [address] | [address] | | + + + + + [...] | | Transcribed By: Adriana Pacheco : [id number] : 1215 Approved By: | | | | | + + + + + + + + | Performing | Address | City/State/Zipcode | Phone Number | | Organization | | | | + + + + + | [facility] | [address] | [place], [place] | | | [facility] [place] [facility] | [address] | [address] | | | TESTS | | | | + + + + + | [facility] | [address] | [place], [place] | | | TESTS | [address] | [address] | | + + + + + [place] MRI LOWER EXTREM JT, W/O CONTRAST (08/22/2005) + + + | Impressions | Performed At | + + + | LOWER EXTREMITY JOINT RT W/O AT 1619 HOURS RIGHT KNEE MRI, | [facility] | | 08/22/05 HISTORY: Chronic [...] + + | Performing | Address | City[facility] | Phone Number | | Organization | | | | + + + + + | [facility] | [address] | [place], [place] | | | [place] [facility] | [address] | [address] | | | TESTS | | | | + + + + + | [facility] | [address] | [place], [place] | | | TESTS | [address] | [address] | | + + + + + [...] + + + + + | [facility] | [address] | [place], [place] | | | [place] [facility] | [address] | [address] | | | TESTS | | | | + + + + + | [facility] | [address] | [place], [place] | | | TESTS | [address] | [address] | | + + + + + [place] MRI LOWER EXTREM JT, W/O CONTRAST (03/05/2005) [...] | | | By: Armaan Mata : [id number] : 1416 Approved By: | | + + + + + + + + | Performing | Address | City/State/Zipcode | Phone Number | | Organization | | | | + + + + + | [facility] | [address] | [place], [place] | | | [facility] [place] [facility] | [address] | [address] | | | TESTS | | | [...] Armaan | | | Nicole Saenz : [id number] : 1555 Approved By: | | + + + + + + + + | Performing | Address | City/State/Zipcode | Phone Number | | Organization | | | | + + + + + | [facility] | [address] | [place], [place] | | | [facility] [place] [facility] | [address] | [address] | | | TESTS | | | [...] Adriana | | | Aminata Pacheco : [id number] : 1505 Approved By: | | + + + + + + + + | Performing | Address | City/State/Zipcode | Phone Number | | Organization | | | | + + + + + | [facility] | [address] [facility] [address] | [place], [place] | | | [place] OF [facility] | [address] | [address] | | | TESTS | | | | + + + + + documented in this encounter Visit Diagnoses Not on filedocumented in this encounter"
--- OUTSIDE RECORDS SUMMARY | ~2019-10-16 | XMS | Encounter Summary ---
Demographics + + + | Address | [address] | | | [place] [address] | + + + | Home Phone | | + + + | Preferred Language | Unknown | + + + | Marital Status | | + + + | Nondenominational Affiliation | 1001 | + + + [...] Team Providers + +------+ + | Care Sas Statistical Programmer Name | Role | Phone | [...] + | 06/30/ | Refill | [facility] | Alanis, | Medication Refill | | 2017 | | MEDICINE [address] [place] [address] | MD Petrona | | | | | [facility] | [address] [place] [address] | | | | | [place] [address] | [place] [address] | | | | | [phone] | [phone] | | | | | | | [...] | | | | | [place] [address] | | | | | | [phone] | | | | | | | | +--------+ + + + + | 12/20/ | Office | Audiology | Elisabet Munson MS | | | 2019 | Visit | | [facility] [address] | | | | | | [address] [place] | | | | | | [place] [address] | | | | | | [phone] | | | | | | | | +--------+ + + + + | 12/20/ | Office | Otolaryngology | Ulysses Genao MD | | | 2019 | Visit | | [address] | | | | | | [address] [place], | | | | | | [place] [address] | | | | | | [phone] | | | | | | | | +--------+ + + + + documented as of this encounter Visit Diagnoses + + | Diagnosis | + + | Bronchitis - Primary Bronchitis, not specified as acute or chronic | + + documented in this encounter"
--- OUTSIDE RECORDS SUMMARY | ~2019-10-16 | XMS | Encounter Summary ---
Demographics + + + | Address | [address] | | | [place] [address] | + + + | Home Phone [...] Team Providers + +------+ + | Care Busgirl Name | Role | Phone | + [...] | | | | | Procedures | [facility] [place] | [address] | | | | | CONSULT TO | [address] | for Health | | | | | BONE | Phone: | and Healing, | | | | | DENSITOMETRY | [phone] | [address] | | | | | | Fax: | [place], [place] | | | | | | [phone] | [address] | | | | | | | Phone: | | | | | | | [phone] | | | | | | | Fax: | | | | | | | [phone] | +--------+ + + + + + [...] | | | [facility] | [place], [place] | [address] | | | | and Healing, | [address] | | | | | [facility] | [phone] | | | | | Floor [place], [place] | | | | | | [address] | | | | | | [phone] | | | +--------+---------+ + + + [...] | | | | | changes of Zeo-en-Y | | | | | | gastric [...] | | + +---------+ + + | [facility] | | | | | [...]
--- OUTSIDE RECORDS SUMMARY | ~2019-10-16 | XMS | Encounter Summary ---
Demographics + + + | Address | [address] | | | [place] [address] | + + + | Home Phone [...] Team Providers + +------+ + | Care Deer Farmer Name | Role | Phone | + +------+ + | Pedrito Gutierrez MD | PCP | | + +------+ + Reason for Visit + + + | Reason | Comments | + + + | Follow-up visit | | + + + Office Visit [...] | | | Epic Dept | MD Eliezer | | | | | | | [address] | | | | | | | [address] | | | | | | | [place], | | | | | | | [place] | | | | | | | [address] | | | | | | | Phone: | | | | | | | [phone] | | | | | | | Fax: | | | | | | | [phone] | +--------+--------+ + + + + Encounter Details +--------+---------+ + + + | Date | Type | Department | Care Team | Description | +--------+---------+ + + + | 07/10/ | Office | [facility] | Eliezer Ruano, | Abdominal Pain, | | 2008 | Visit | [place] [address] | [address] | dumping syndrome Hx | | | | Ave Mailcode: [facility] | [address] | of gastric bypass | | | [facility] | [place], [place] | (Primary Dx) | | | | and Healing, | [address] | | | | | Building | [phone] | | | | | Floor [place], [place] | | | | | | [address] | | | | | | [phone] | | | +--------+---------+ + + + [...] + + + | Blood Pressure | 128/60 | 07/10/2008 12:49 PM | | | | | PST | | + + + + + | Pulse | 65 | 07/10/2008 12:49 PM | | | | | PST | | + + + + + | Temperature | 36.9 C (98.5 F) | 07/10/2008 12:49 PM | | | | | PST | | + + + + + | Respiratory Rate | 16 | 07/10/2008 12:49 PM | | | | | PST | | + + + + + | Oxygen Saturation | - | - | | + + + + + | Inhaled Oxygen | - | - | | | Concentration | | | | + + + + + | Weight | 90.9 kg (200 lb 6.4 | 07/10/2008 12:49 PM | | | | oz) | PST | | + + + + + | Height | - | - | | + + + + + | Body Mass Index | 29.59 | 06/21/2008 9:06 AM | | | | | PST | | + + + + + documented in this encounter Progress Notes Eliezer Ruano MD - 07/17/2008 11:42 AM PSTI performed a history and physical examinati on of the patient and discussed her management with the resident. I reviewed the resident s note and agree with the documented findings and plan of care. ELIEZER RUANO MD [address] Mailcode: [place] [address] Yuriy Mayo MD - 06/16 1:34 PM PST Subjective: Belinda Meehan is a 48 year old female who underwent an exploratory laparotomy and lysis of dense adhesions of the terminal ileum, cecum, and omentum to the pelvic floor on 8 for a 2 year h/o abdominal pain and nausea. She is s/p-gastric bypass performed in 2003 an d subsequent panniculectomy. Since the ISAIAH procedure she reports less abdominal pain and nini sea. She states that there is still some abdominal pain, but significantly less frequently a nd less severe than before. She is eating well and having regular BMs. She reports no recent fevers. She has continued low back pain and knee pain. She recently underwent back surgery, L5-S1 fusion with spur removal in [place], [place] 7 weeks ago. Allergies Allergen Reactions Keflex (Cephalexin) Sulfa (Sulfonamides) Codeine Penicillins Clindamycin Cipro (Ciprofloxacin) Tramadol Morphine IM ( only in [facility]) made gut pain worse 08/27/06: Trial of oral MSIR caused leg swelling Clarithromycin Hives Mainly in the legs Current outpatient prescriptions prior to encounter Medication Sig Dispense Refill aspirin chewable (BABY ASPIRIN) 81 mg Oral Tablet, Chewable 2 daily buPROPion XL (WELLBUTRIN XL) 300 mg Oral Tablet Sustained Release 24 hr take 1 tablet ( 300 mg) by oral route once daily omzfqbrmeb-nuthzaqbqjchd-vcukggrk (FIORICET) 50-325-40 mg Oral Tablet take 2 as needed for migraine CALCIUM 600 WITH VITAMIN D OR ( [...] oral route once daily 30 1 2 MAGNESIUM 300 mg Oral Capsule 2 cap daily methocarbamol 750 mg Oral Tablet Take 750 mg by mouth three times daily. Multivitamin Oral Tablet 1 tab po bid nitroglycerin 0.4 mg Sublingual Tablet, Sublingual as needed for chest pain omeprazole magnesium (PRILOSEC OTC) 20 mg Oral Tablet, Delayed Release (E.C.) take 1 ta blet by mouth twice daily oxycodone CR (OXYCONTIN) 40 mg Oral Tablet Sustained Release 12 hr take 1 tablet (40 mg ) by oral route every 12 hours 10 0 Oxycodone HCl 5 mg Oral Tablet take 2 tablets (10 mg) by oral route every 4-6 hours as needed for pain POTASSIUM CHLORIDE SR 20 MEQ TAB, PARTICLES/CRYSTALS take 1 tablet (20meq) by oral rout e once daily with food pregabalin 75 mg Oral Capsule Take 1 Cap by mouth. Pregabalin (Lyrica) is FDA approved for the treatment of postherpetic neuralgia, painful diabetic peripheral neuropathy, and fi bromyalgia. It has evidence for efficacy in many types of neuropathic pain, anxiety, sleep d isturbances, and muscle pain. It is not protein bound, not metabolized, and has no signific ant drug-drug interactions. It has consistent absorption at all dose s and can be dosed BID or TID. Pateint has tried and failed trials of amitriptyline, nortriptyline and gabapentin . Trial of pregablin [Lyrica]: Starting dose of 75 mg, 1 capsule twice a day; if no adverse effects [ ataxia, disturbance in thinking, hand and feet swelling, weight gain, drowsiness/ dizziness, constipation, visual disturbance] increase as tolerated till taking 150 mg to max imum of 300 mg twice a day. Contraindications: Hypersensitivity. Monitoring: pain assessment , adverse effects with dose changes, platelet count, CK levels with occurrence of myopathy s ymptoms such as malaise, fever or muscle pain 120 1 procaine 1 % Injection Solution procaine 0.5% 12 cc 0 promethazine 25 mg Oral Tablet as [...] MG CHEWABLE TAB four times a day vitamin E 400 unit Oral Capsule 2 cap daily Past Medical History Diagnosis Date Chronic Abdominal [...] bypass Other General Symptoms Headache Kidney Stone Past Surgical History Procedure Date Hx salpingo-oophorectomy Colonoscopy 03/2006 Hx tonsillectomy Pr d&c after delivery Pr inject trigger point, 1 or 2 Hx knee replacement 02/2007 Left knee Hx knee replacement 08/2007 right knee Hx cholecystectomy Hx section Hx hysterectomy Gastric bypass Mayra Ruano wt 278 01/18 Paniculectomy Hx lumbar fusion 05/2008 L1-G8anjubu with bone spur removals Review of Systems: General: no loss of appetite, nausea, vomiting, fevers or chills Resp: no SOB, coughs, runny nose CV: no CP Gastrointestinal System: mild abdominal pain, generalized Bones, Joints, and Muscles: has right knee pain Exam: BP 128/60, Pulse 65, Temperature 36.9 C (98.5 F), Temperature source Oral, RR 16, Wt 90 .901 kg (200 lbs 6.4 oz)( < 3 %ile). General: A/Ox3, NAD HEENT: PERRL, EOMI CVS: RRR Chest: CTAB Abdomen: BS present, S/NT/ND, midling scar, horizontal scar from panniculoectomy. Extremities: No c/c/e Assessment/Plan: 48 yo female s/p-ISAIAH for abdominal pain, nausea and vomiting, h/o-RYGBP performed in 2003. Pt is doing well with less abdominal pain, nausea and vomiting. Will plan to follow up in 6 months with a repeat CBC and CMP at that time. This patient was seen and examined with Dr. Eliezer Ruano. documented in this encounter Plan of Treatment Not on filedocumented as of this encounter Visit Diagnoses + + | Diagnosis | + + | Abdominal Pain, dumping syndrome Hx of gastric bypass - Primary Abdominal pain, | | other specified site | + + documented in this encounter"
--- OUTSIDE RECORDS SUMMARY | ~2019-10-16 | XMS | Encounter Summary ---
Demographics + + + | Address | [address] | | | [place] [address] | + + + | Home Phone | | + + + | Preferred Language | Unknown | + + + | Marital Status | | + + + | Zoroastrianism Affiliation | 1001 | + + + | Race | Unknown | + + + | Ethnic Group | Unknown | + + + Author + + + | Author | [facility] | | | and Jairana | + + + | Organization | [facility] | | | and [...] Team Providers + +------+ + | Care Mason Tender Name | Role | Phone | [...] Description | +--------+--------+ + + + | 07/14/ | Refill | [facility] | Alanis, | Medication Refill | | 2017 | | MEDICINE [address] [place] [address] | MD Petrona | | | | | [facility] | [address] [place] [address] | | | | | [place] [address] | [place] [address] | | | | | [phone] | [phone] | | | | | | | [...] | | | | | | [place] [address] | | | | | | [phone] | | | | | | | | +--------+ + + + + | 12/20/ | Office | Audiology | DarioElisabet ramires MS | | | 2019 | Visit | | [facility] [address] | | | | | | [address] [place] | | | | | | [place], [place] [address] | | | | | | [phone] | | | | | | | | +--------+ + + + + | 12/20/ | Office | Otolaryngology | Ulysses Genao MD | | | 2019 | Visit | | [address] | | | | | | [address] [place], | | | | | | [place] [address] | | | | | | [phone] | | | | | | | | +--------+ + + + + documented as of this encounter Visit Diagnoses Not on filedocumented in this encounter"
--- OUTSIDE RECORDS SUMMARY | ~2019-10-16 | XMS | Encounter Summary ---
Demographics + + + | Address | [address] | | | [place] [address] | + + + | Home Phone [...] Author + + + | Author | [facility] | + + + | Organization | [facility] | + + + | [...] Team Providers + +------+ + | Care Fleet Maintenance Foreman Name | Role | Phone | + +------+ + | Pedrito Gutierrez MD | PCP | | + +------+ + Encounter Details +--------+---------+ + + + | Date | Type | Department | Care Team | Description | +--------+---------+ + + + | 09/09/ | Office | Comprehensive Pain | Nathalia Arora | Neck Pain; | | 2006 | Visit | [facility] | [address] | 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 Provider: DELFINA MOLINA ANP Nathalia Garrett - 007 4:49 PM PDT Physical Therapy Medicare Progress Note Date: 09/09/2006 Belinda J Shefali [id number]. 1960 Start of Care: 06/23/2006 Referring Provider: [...] with walking and sitting; driving back to [employer] 2 weeks ago, stopped at rest place and got out of care, falling onto B knees, getting better. Objective: Apparently patient's trip home 2 weeks ago was most likely related to her positi oning, ie B knees were hyperflexed for a prolonged time. She has not fallen since then, use s her lofstrand crutches consistently. Functionally, patient is walking 25 minutes at [employer] at least daily and tolerating it we [...] | + + +--------+ + + | [facility] MANUAL THER | Procedures | Routin | [...] | + + +--------+ + + | [facility]ERAPEUTIC | Procedures | Routin | Neck [...]
--- OUTSIDE RECORDS SUMMARY | ~2019-10-16 | XMS | Encounter Summary ---
Demographics + + + | Address | [address] | | | [place] [address] | + + + | Home Phone [...] + + + | Author | [facility] | + + + | Organization | [facility] | + + + | Address [...] Team Providers + +------+ + | Care Rn Clinical Research Name | Role | Phone | + +------+ + | Pedrito Gutierrez MD | PCP | | + +------+ + Encounter Details +--------+ + + + + | Date | Type | Department | Care Team | Description | +--------+ + + + + | 02/23/ | Office | UNKNOWN DEPARTMENT | Clinic, | Progress Note | | 2006 | Visit-Trans | [address] | Endocrinology | | | | kurt | [address] | | | | | | [place], [place] | | | | | | [address] | | | +--------+ + + + [...] as of this encounter Progress Notes Interface, Hotel Manager In - 03/12/2007 2:28 AM PDT [id number] GEOVANNI Barnes [id number] Clinic Date: 02/23/2007 Clinic: Endocrinology Subjective: Belinda Meehan is a 47-year-old woman who underwent gastric bypass surgery in November 2003, which resulted in an approximately 137-pound weight loss compared to her current weight today. 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 She was having episodes of severe abdominal pain, but these have nearly resolved. Her main concern is ongoing marked body pains, low back pain and sciatica, and severe knee pain. She is going to have a left knee replacement performed next Thursday, March 01, 2007, in [place]. The right knee will be replaced in about 6 months. She had an ophthalmologic evaluation earlier today which reportedly showed no evidence of diabetic retinopathy, but she did have evidence of cataracts. She has been fairly physically active during this summer. Her main activity has been swimming. Other activities are more limited because of low back pain and knee pain. The abdominal pain has been occurring only occasionally, with episodes about every 3 or 4 months. This is a marked improvement compared to the situation many months ago when she was having episodes every day. Unfortunately, she is having migraine headaches every day. Medications: 1. Fentanyl patch 25 mcg for 72 hours. 2. Brea/acetaminophen 10 mg/325 mg, 1 every 6 hours p.r.n. 3. Actonel 35 mg per week. 4. Trileptal 150 mg b.i.d. 5. Promethazine 25 mg every 6 hours. 6. Vitamin B12 1 mg IM every month. 7. Furosemide 80 mg every morning. 8. Potassium chloride 20 mEq every morning. 9. Multivitamin 2 tablets daily. 10. Vitamin C 500 mg, 4 tablets daily. 11. Calcium 600 mg plus vitamin D 400 units, 4 tablets daily. 12. Docusate sodium 100 mg p.r.n. 13. Levoxyl 50 mcg daily. 14. Wellbutrin XL 300 mg daily. Physical Examination: Weight 194.3 pounds (decreased 12 pounds since October 2006, same as July 30, 2006), blood pressure 112/80, and pulse 64 beats per minute and regular. She is tanned, as a consequence of standing a lot of time out in the sun this summer. She is alert and in no acute distress. Mood within normal limits. Estimated thyroid mass 20 to 25 g. No thyroid nodules are palpable. No cervical adenopathy. Cardiac: Regular rate and rhythm. No murmur, S3, S4, or rubs. No JVD. Pulses within normal limits. Abdomen: No hepatosplenomegaly, masses, or tenderness. Extremities: Benign. Deep tendon reflexes 1 to 2+. Laboratory Studies: Her previous serum TSH concentration was mildly elevated to 7.7 microunits per milliliter on September 14, 2006. Her serum TSH concentration measured yesterday, while taking levothyroxine 50 mcg daily, was 1.70 microunits per milliliter, which is perfect. Despite her relatively modest dose of vitamin D, her serum 25 hydroxy vitamin D concentration was 51 ng/mL on February 23, 2007. In summary, she appears to be doing fairly well from an endocrinology standpoint. She is tolerating Actonel without problems. She is no longer vitamin D deficient. Her major problems are related to fibromyalgia and degenerative joint disease. She will have a left knee replacement performed next week, which will help alleviate some of the pain that is limiting her overall physical activity. Plan: 1. Continue current medications. 2. Return to see me again in about 3 months. Beto Meeks M.D. PD / HS [id number] / [id number] / [id number] / [id number] cc: Pedrito Gutierrez M.D. [address] [place] [address] Chris Padgett M.D. Department of Surgery, [facility] Electronically signed by Beto Meeks 03-11-2007 04:41:13 PM nterface, Hotel Manager In - 03/12/2007 2:28 AM PDT [id number] GEOVANNI SKELTON J [id number] Clinic Date: 02/23/2007 Clinic: Endocrinology Belinda Meehan is a 47-year-old woman who underwent gastric bypass surgery in November 2003, subsequently reduced her weight by more than 50%, but has continued to have that persistent low back pain and intermittent severe abdominal pain. At one point, dominantly abdominal pain is present nearly continuously, but the current frequency of pain is only 3 or 4 times per month for short periods of time. She continues to be followed in the Pain Clinic, and by her other various physicians, including her primary care provider, Dr. Gutierrez in [place]. She had a followup eye exam today, which showed no significant changes. She has cataracts present bilaterally, which may need to be dealt with later. Remarkably, she said she is starting to regain vision in her right eye. She had previously been told that she would not regain any vision. She has substantial diffuse body pains related to fibromyalgias, that has predominant symptoms of sciatica and low back pain related to previously diagnosed lumbar disc herniations. Despite the various pains, she is very active this summer, doing lots of swimming. She has been having more migraine headaches which are occurring daily. She is scheduled to have a left knee replacement next Thursday (in 6 days) in [place], [place]. The right knee replacement tentatively will be performed in about 6 months. Medications: 1. Vitamin B12 1 mg intramuscularly every month. 2. Multivitamin 1 p.o. b.i.d. 3. Actonel 35 mg p.o. weekly. 4. Ferrous sulfate 325 mg (65 mg IM) 1 p.o. t.i.d. 5. Docusate sodium 100 mg, 1 p.o. at bedtime p.r.n. 6. OxyContin 40 mg in 12 hour time release tablet, 1 p.o. q. 12 hours. 7. Oxycodone 5 mg, 1 tablet p.o. every 6 hours p.r.n. pain, not to exceed 2 per day. 8. Prilosec 20 mg p.o. daily. 9. Levothyroxine 50 mcg daily. 10. Trileptal 150 mg p.o. b.i.d. 11. Lasix 80 mg daily. 12. Potassium chloride 20 mEq once daily. 13. Promethazine 25 mg p.o. q. 6 hours p.r.n. 14. Calcium 600 mg with vitamin D 400 units, 1 tablet p.o. 4 times daily. 15. Vitamin C 500 mg chewable tablets 4 times daily. 16. Aspirin 81 mg daily. 17. Z-River starting last night 1 daily for 5 days. Physical Examination: Vital Signs: Weight 194.3 pounds (decreased 12 pounds compared to October 2006, but increased 35 pounds from her dontae of 159 pounds), blood pressure 112/80, and pulse 65 beats per minute and regular. General: She was alert and in no acute distress. Mood within normal limits. Cardiac: Regular rate and rhythm. No murmurs, S3, S4, or rubs. No JVD. Pulses were within normal limits. No arterial bruits. Abdomen: No hepatosplenomegaly, masses, or tenderness. Extremities: No pretibial edema. Her tremor has diminished. Her skin is tanned. In summary, she has ongoing medical problems like before. No new problems seem to have developed since her last visit. We just need to recheck her vitamin D status to ensure that she has not developed vitamin D deficiency again. Frequent sun exposure and tanning should help reduce her rest of vitamin D deficiency during this summer, but I anticipate the risk of increase again during the winter because of ongoing vitamin D malabsorption and diminished sun exposure during the winter months. Her previous serum TSH concentration was only mildly elevated, but we need to recheck her thyroid today to ensure that it has normalized (serum TSH 7.7 microunits per mL on September 14, 2006). Her previous vitamin D level was 31ng/mL. In July, vitamin B12 1278 pg/mL, serum PTH adequate at 48 pg/mL. Percent iron saturation was decreased to 13%. Plan: 1. Check serum TSH and repeat 25-hydroxyvitamin D today. 2. Continue to follow up with primary care provider. 3. Return to see me again in about 3 months, or sooner as needed. Beto Meeks M.D. / SHARIF [id number] / [id number] / [id number] / [id number] cc: Pedrito Gutierrez M.D. [address] [place] [address] Joanna Arshad M.D. Electronically signed by Beto Meeks 03-11-2007 04:41:08 PM documented in this encounter Plan of Treatment Not on filedocumented as of this encounter Visit Diagnoses Not on filedocumented in this encounter"
--- OUTSIDE RECORDS SUMMARY | ~2019-10-16 | XMS | Encounter Summary ---
Demographics + + + | Address | [address] | | | [place] [address] | + + + | Home Phone | | + + + | Preferred Language | Unknown | + + + | Marital Status | | + + + | Restorationism Affiliation | 1001 | + + + | Race | Unknown | + + + | Ethnic Group | Unknown | + + + Author + + + | Author | [facility] | | | and Jairana | + + + | Organization | [facility] | | | [...] Team Providers + +------+ + | Care Side Sawyer Name | Role | Phone | + +------+ + | Petrona Thapa | PCP | | | MD | | | + +------+ + Reason for Visit + + + | Reason | Comments | + + + | Medication Prior | Gabapentin | | Authorization | | + + + Encounter Details +--------+ + + + + | Date | Type | Department | Care Team | Description | +--------+ + + + + | 03/29/ | Telephone | [facility] | Alanis, | Medication Prior | | 2017 | | MEDICINE [address] [place] [address] | MD Petrona | Authorization | | | | [facility] | [address] [place] [address] | (Gabapentin ) | | | | [place] [address] | [place] [address] | | | | | [phone] | [phone] | | | | | | | [...] | | | | | [address] | | | | | | [place] [address] | | | | | | [phone] | | | | | | | | +--------+ + + + + | 12/20/ | Office | Audiology | Elisabet Munson MS | | | 2019 | Visit | | [facility] [address] | | | | | | [address] [place] | | | | | | [place] [address] | | | | | | [phone] | | | | | | | | +--------+ + + + + | 12/20/ | Office | Otolaryngology | Ulysses Genao MD | | | 2019 | Visit | | [address] | | | | | | [address] [place], | | | | | | [place] [address] | | | | | | [phone] | | | | | | | | +--------+ + + + + documented as of this encounter Visit Diagnoses Not on filedocumented in this encounter"
--- OUTSIDE RECORDS SUMMARY | ~2019-10-16 | XMS | Encounter Summary ---
Demographics + + + | Address | [address] | | | [place] [address] | + + + | Home Phone [...] Team Providers + +------+ + | Care Human Performance Consultant Name | Role | Phone | [...] | | | | Clinical Nutrition | [place], [place] | | | | | [address] | [address] | | | | | Loop Mailcode: OPC5 | [phone] | | | | | Outpatient Clinic | | | | | | [facility] | | | | | | [place] [address] | | | | | | [phone] | | | +--------+ + + + [...] + + + | [facility] | [address] | [place] [address] | | | LABORATORY | | | [...] + + + | [facility] | [address] | [place] [address] | | | LABORATORY | | | [...] Blood Test performed by | | | [facility]. | | + + + + + + + + | Performing | Address | City/State/Zipcode | Phone Number | | Organization | | | | + + + + + | [facility] | [address] | [place] [address] | | | LABORATORY | | | | + + + + + documented in this encounter Visit Diagnoses Not on filedocumented in this encounter"
--- OUTSIDE RECORDS SUMMARY | ~2019-10-16 | XMS | Encounter Summary ---
Demographics + + + | Address | [address] | | | [place] [address] | + + + | Home Phone [...] Team Providers + +------+ + | Care Control Specialist Name | Role | Phone | [...] Description | +--------+---------+ + + + | 01/26/ | Office | Rheumatology at | [facility], | Fibromyalgia | | 2007 | Visit | [facility] [address] | [address] CHANGER | syndrome 729.[address] | | | | [address] | | (Primary Dx); | | | | Physician's | | Fibromyalgia | | | | Pavilion, 4th Floor | | | | | | [place], [place] | | | | | | [address] | | | | | | [phone] | | | +--------+---------+ + + + [...] + + + | Blood Pressure | 111/64 | 01/27/2008 2:44 PM | | | | | PDT | | + + + + + | Pulse | 65 | 01/27/2008 2:44 PM | | | | | PDT [...] + + + + | Weight | 85.4 kg (188 lb 4.8 | 01/27/2008 2:44 PM | | | | oz) | PDT | | + + + + + | Height | - | - | | + + + + + | Body Mass Index | 27.81 | 12/27/2007 3:59 PM | | | | | PDT | | + + + + + documented in this encounter Progress Notes Caitlin Rivera - 01/27/2008 5:40 PM PDT Subjective: I periodically see Belinda Meehan for Fibromyalgia. She had her second knee replacement and it went well. She had abdominal surgery one month ago for pain, adhesions a nd other probelms were found. She will see a neurologist for 2 episodes of syncope during mi graine. She would like tp injections today. Pain: 02/22 Fatigue: 02/22 Current outpatient prescriptions Medication buPROPion XL (WELLBUTRIN XL) 300 mg Oral Tablet Sustained Release 24 hr CALCIUM 600 WITH VITAMIN D OR Cyanocobalamin 1,000 mcg/mL Injection Syringe Docusate Sodium 100 mg Oral Tablet Furosemide (LASIX) 80 mg OR TABS levothyroxine 50 mcg Oral Tablet Multivitamin Oral Tablet omeprazole magnesium (PRILOSEC OTC) 20 mg Oral Tablet, Delayed Release (E.C.) oxycodone (immediate release) 5 mg Oral Tablet oxycodone CR (OXYCONTIN) 40 mg Oral Tablet Sustained Release 12 hr Oxycodone HCl 5 mg Oral Tablet POTASSIUM CHLORIDE SR 20 MEQ TAB, PARTICLES/CRYSTALS promethazine 25 mg Oral Tablet propranolol CR (INDERAL LA) 160 mg Oral Capsule,Sustained Action 24 hr riserdronate (ACTONEL) 35 mg Oral Tablet sucralfate (CARAFATE) 1 gram Oral Tablet VITAMIN C 500 MG CHEWABLE TAB Physical Exam: BP 111/64 | Pulse 65 | Wt 85.412 kg (188 lbs 4.8 oz) She had myofascial trigger points at the bilateral trapezius, levator scapula, rhomboids at _t5, infraspinatus. Impression and Plan: 1. All the trigger points listed in the objective section were injected using 0.5% procaine for a total of 12 cc's. The injections were well tolerated, muscles softened and after car e instructions were given. documented in this encount er Plan of Treatment + + +--------+ + + | Name | Type | Priori | Associated Diagnoses | Order Schedule | | | | ty | | | + + +--------+ + + | SC INJECT TRIGGER | Procedures | Routin | Fibromyalgia | Ordered: 01/27/2008 | | POINT, 1 OR 2 | | e | | | + + +--------+ + + documented as of this encounter Visit Diagnoses + + | Diagnosis | + + | Fibromyalgia syndrome 729.1 - Primary Mylagia and myositis, unspecified | + + | Fibromyalgia Mylagia and myositis, unspecified | + + documented in this encounter"
--- OUTSIDE RECORDS SUMMARY | ~2019-10-16 | XMS | Encounter Summary ---
Demographics + + + | Address | [address] | | | [place] [address] [...] Team Providers + +------+ + | Care Visual Artist Name | Role | Phone | + +------+ + PCP | Unavailable | + +------+ + Encounter Details +--------+ + + + + | Date | Type | Department | Care Team | Description | +--------+ + + + + | 07/24/ | Office | [facility] & | | Progress Note | | 2006 | Visit-Trans | ONCOLOGY | | | | | cribed | [...] as of this encounter Progress Notes Interface, Insurance Compliance Analyst In - 08/19/2005 2:05 AM PST [id number] GEOVANNI Barnes Clinic Date: 07/24/2005 Clinic: Hematology Clinic Referring Physician: Pedrito Gutierrez M.D. Problem List: Increased bruising; date of onset, 1960. Ms. Meehan was currently referred by Dr. Pedrito Gutierrez for further evaluation of increased bruising and abdominal labs. She was seen by Dr. Karen Hoff in clinic, who dictated full and complete note of the encounter. I was there, saw the patient myself, and agreed with her evaluation. This patient has an interesting problem. She has increased bruising. She has had multiple procedures in the past without severe bleeding, so I do not think she has a severe bleeding diathesis; however, we will work up fully for bruising which would include performing platelet function assay, reviewing her coagulation labs. We will also check a ferritin to see iron deficiency associated with increased bruising. If the bruising persists, it may be worth considering backing off the vitamin E as this can be associated with bruising. The patient does have an elevated von Willebrand's panel; this is consistent with her chronic inflammatory state. We will repeat this to verify that it is not below normal. Once my evaluation is done, I will send a full and complete summary. Lukasz Sellers M.D. artistic associate NANCY / SHARIF [id number] / [id number] / [id number] / [id number] cc: Pedrito Gutierrez M.D. [address] [place] [address] Electronically signed by Lukasz Sellers 08-18-2005 01:28:24 PM documented i n this encounter Plan of Treatment Not on filedocumented as of this encounter Visit Diagnoses Not on filedocumented in this encounter"
--- OUTSIDE RECORDS SUMMARY | ~2019-10-16 | XMS | Encounter Summary ---
Demographics + + + | Address | [address] | | | [place] [address] | + + + | Home Phone [...] Author + + + | Author | [facility] | + + + | Organization | [facility] | + + + | [...] Providers + +------+ + | Care Customer Sales Representative Name | Role | Phone | + +------+ + PCP | Unavailable | + +------+ + Encounter Details +--------+ + + + + | Date | Type | Department | Care Team | Description | +--------+ + + + + | 07/04/ | Office | Endocrinology, | Beto Meeks MD | | | 2005 | Visit-ECX | Diabetes and | [address] | | | | | Clinical Nutrition | [place], [place] | | | | | [address] | [address] | | | | | Loop Mailcode: OPC5 | [phone] | | | | | Outpatient Clinic | | | | | | [facility] | | | | | | [place] [address] | | | | | | [phone] | | | +--------+ + + + [...]
--- OUTSIDE RECORDS SUMMARY | ~2019-10-16 | XMS | Encounter Summary ---
Demographics + + + | Address | [address] | | | [place] [address] | + + + | Home Phone | | + + + | Preferred Language | Unknown | + + + | Marital Status | Single | + + + | Evangelical Affiliation | ADV | + + + [...] Team Providers + +------+ + | Care Chiller Tender Name | Role | Phone | [...] [address] | | | | | | [place], [place] | | | | | | [address] | | | | | | [phone] | | | +--------+ + + + [...]
--- OUTSIDE RECORDS SUMMARY | ~2019-10-16 | XMS | Encounter Summary ---
Demographics + + + | Address | [address] | | | [place] [address] | + + + | Home Phone [...] Team Providers + +------+ + | Care Acid Wash Operator Name | Role | Phone | [...] | | | | Clinical Nutrition | [place], [place] | | | | | [address] | [address] | | | | | Loop Mailcode: OPC5 | [phone] | | | | | Outpatient Clinic | | | | | | [facility] | | | | | | [place] [address] | | | | | | [phone] | | | +--------+ + + + [...] [facility] | [address] | [place], [place] | | | [facility] | | [address] | | + + + + + [...] | + + + + + | [facility] | [address] | [place] [address] | | | LABORATORY | | | [...] DEPARTMENT OF | [address] | [place] [address] | | | PATHOLOGY | [address] | | | + + + + + | [facility] DEPARTMENT OF | [address] | [place] [address] | | | PATHOLOGY | [address] | | | + + + + + LIPASE (01/11/2002 3:50 PM PDT) + +--------+ + + + | Component | Value | Ref Range | Performed | Pathologist | | | | | At | Signature | + +--------+ + + + | LIPASE | 21 (L) | 22 - 51 U/L | [facility] | | | (LAB) | | [...] | + + + + + | [facility] | [address] [facility] | [place] [address] | | | PATHOLOGY | [address] | | | + + + + + | [facility] | [facility] | [place] [address] | | | PATHOLOGY | [address] [...] DEPARTMENT OF | [address] | [place] [address] | | | PATHOLOGY | [address] | | | + + + + + | [facility] DEPARTMENT | [address] | [place] [address] | | | PATHOLOGY | [address] [...] | + + + + + | [facility] | [address] | [place] [address] | | | PATHOLOGY | [address] | | | + + + + + | [facility] | [facility] | [place] [address] | | | PATHOLOGY | [address] | | | + + + + + documented in this encounter Visit Diagnoses Not on filedocumented in this encounter"
--- OUTSIDE RECORDS SUMMARY | ~2019-10-16 | XMS | Encounter Summary ---
Demographics + + + | Address | [address] | | | [place] [address] | + + + | Home Phone [...] Team Providers + +------+ + | Care Nursing Program Manager Name | Role | Phone | [...] | | | | kurt | [address] | | | | | | [place], [place] | | | | | | [address] | | | +--------+ + + + [...] as of this encounter Progress Notes Interface, Geometry Tutor In - 03/12/2007 2:28 AM PDT [id number] GEOVANNI Barnes [id number] Clinic Date: 02/23/2007 Clinic: Endocrinology Subjective: Belinda [...] performed next Thursday, March 01, 2007, in [place]. The right knee will be replaced in [...] patch 25 mcg for 72 hours. 2. Cawood/acetaminophen 10 mg/325 mg, 1 every 6 hours [...] months. Beto Meeks M.D. PD / HS [id number] / [id number] / [id number] / [id number] cc: Pedrito Gutierrez M.D. [address] [place] [address] Chris Padgett M.D. Department of Surgery, [facility] Electronically signed by Beto Meeks 03-11-2007 04:41:13 PM nterface, Geometry Tutor In - 03/12/2007 2:28 AM PDT [id number] GEOVANNI SKELTON J [id number] Clinic Date: 02/23/2007 Clinic: Endocrinology Belinda Meehan [...] her primary care provider, Dr. Gutierrez in [place]. She had a followup eye exam today, [...] replacement next Thursday (in 6 days) in [place], [place]. The right knee replacement tentatively will [...] as needed. Beto Meeks M.D. / SHARIF [id number] / [id number] / [id number] / [id number] cc: Pedrito Gutierrez M.D. [address] [place] [address] Joanna Arshad M.D. Electronically signed by Beto Meeks 03-11-2007 04:41:08 PM documented in this encounter Plan of Treatment Not on filedocumented as of this encounter Visit Diagnoses Not on filedocumented in this encounter"
--- OUTSIDE RECORDS SUMMARY | ~2019-10-16 | XMS | Encounter Summary ---
Demographics + + + | Address | [address] | | | [place] [address] | + + + | Home Phone [...] Team Providers + +------+ + | Care Channel Program Manager Name | Role | Phone | + +------+ + PCP | Unavailable | + +------+ + Encounter Details +--------+ + + + + | Date | Type | Department | Care Team | Description | +--------+ + + + + | 02/11/ | Results | General Surgery | Chris Padgett, | | | 2003 | Only | [address] | [address] | | | | | Loop Mailcode: | [address] | | | | | [address] Physician's | [place], [place] | | | | | [address] | [address] | | | | | [place], [place] | [phone] | | | | | [address] | | | | | | [phone] | | | +--------+ + + + [...] + | COMPLETE METABOLIC | Routin | 02/12/2004 | | Results for this | | [...] + | CBC ONLY | Routin | 02/12/2004 | | Results for this | | | e | 3:21 PM | | procedure are in the | | | | PDT | | results section. | + +--------+ + + + documented in this encounter Results CBC ONLY WITH PLATELET (02/12/2004 3:21 PM PDT) + + + + + + | Component | Value | Ref Range | Performed | Pathologist | | | | | At | Signature | + + + + + + | WHITE CELL | 10.2 | 4.4 - 11.0 K/cu | [facility] | | | COUNT | | mm | DEPARTMENT | | | | | | OF | | | | | | PATHOLOGY | | + + + + + + | RED CELL | 4.78 | 3.65 - 5.10 | [facility] | | | COUNT | | M/cu mm | DEPARTMENT | | | | | | OF | | | | | | PATHOLOGY | | + + + + + + | HEMOGLOBIN | 14.7 | 11.4 - 15.0 | [facility] | | | | | g/dL | DEPARTMENT | | | | | | OF | | | | | | PATHOLOGY | | + + + + + + | HEMATOCRIT | 44.2 | 33.0 - 44.6 % | [facility] [...] + + + + | MCH | 30.8 | 29.0 - 32.0 pg | [facility] | | | | | | DEPARTMENT | | | | | | OF | | | | | | PATHOLOGY | | + + + + + + | MCHC | 33.3 (L) | 33.4 - 35.5 | [facility] | | | | | g/dL | DEPARTMENT | | | | | | OF | | | | | | PATHOLOGY | | + + + + + + | RDW | 11.9 | 11.5 - 15.0 % | [facility] | | | | | | DEPARTMENT | | | | | | OF | | | | | | PATHOLOGY | | + + + + + + | PLATELET | 235 | 150 - 400 K/cu | [facility] | | | COUNT | | mm | DEPARTMENT | | | | | | OF | | | | | | PATHOLOGY | | + + + + + + | MPV | 10.1 | 7.4 - 10.4 fL | [facility] [...] DEPARTMENT OF | [address] | [place] [address] | | | PATHOLOGY | [address] | | | + + + + + | [facility] DEPARTMENT OF | [address] | [place] [address] | | | PATHOLOGY | [address] | | | + + + + + COMP METABOLIC SET (02/12/2004 3:21 PM PDT) + +-------+ + + + | Component | Value | Ref Range | Performed | Pathologist | | | | | At | Signature | + +-------+ + + + | GLUCOSE, | 108 | 65 - 110 mg/dL | [facility] [...] +-------+ + + + | TOTAL | 7.4 | 6.1 - 7.9 g/dL | [facility] | | | PROTEIN, | | | DEPARTMENT | | | PLASMA | | | OF | | | (LAB) | | | PATHOLOGY | | + +-------+ + + + | ALBUMIN, | 4.0 | 3.5 - 4.7 g/dL | [facility] | | | PLASMA | | | DEPARTMENT | | | (LAB) | | | OF | | | | | | PATHOLOGY | | + +-------+ + + + | CALCIUM, | 10.0 | 8.5 - 10.5 | [facility] | | | PLASMA | | mg/dL | DEPARTMENT | | | (LAB) | | | OF | | | | | | PATHOLOGY | | + +-------+ + + + | BILIRUBIN | 0.5 | 0.3 - 1.2 mg/dL | [facility] | | | TOTAL | | | DEPARTMENT | | | | | | OF | | | | | | PATHOLOGY | | + +-------+ + + + | ALK PHOS | 85 | 42 - 98 U/L | [facility] | | | | | | DEPARTMENT | | | | | | OF | | | | | | PATHOLOGY | | + +-------+ + + + | AST(SGOT) | 28 | 15 - 41 U/L | [facility] [...] + + + | TOTAL CO2, | 26 | 23 - 29 mmol/L | [facility] | | | PLASMA | | | DEPARTMENT | | | (LAB) | | | OF | | | | | | PATHOLOGY | | + +-------+ + + + | ALT (SGPT) | 23 | 13 - 48 U/L | [facility] [...] | + + + + + | [facility] | [address] | [place] [address] | | | PATHOLOGY | [address] | | | + + + + + | [facility] | [address] | [place] [address] | | | PATHOLOGY | [address] | | | + + + + + documented in this encounter Visit Diagnoses Not on filedocumented in this encounter"
--- OUTSIDE RECORDS SUMMARY | ~2019-10-16 | XMS | Encounter Summary ---
Demographics + + + | Address | [address] | | | [place] [address] | + + + | Home Phone [...] Team Providers + +------+ + | Care Billboard Mechanic Name | Role | Phone | + [...] 2006 | Visit | Rheumatology [address] | DOCUMENT SPECIALIST | Fibromyalgia; | | | | [address] | | Fibromyalgia | | | | Mailcode: OPC5 | | | | | | Outpatient Clinic | | | | | | [facility], | | | | | | [place] [address] | | | | | | [phone] | | | +--------+---------+ + + + [...] 4-5/5 for all major deltoids, biceps, triceps. District Branch Manager slightly weak. Tone is normal. There is [...] cervical spine MRI to be done at [facility]. A few of these patients have [...] + + +--------+ + + | MN INJECT TRIGGER | Procedures | Routin | [...]
--- OUTSIDE RECORDS SUMMARY | ~2019-10-16 | XMS | Encounter Summary ---
Demographics + + + | Address | [address] | | | [place] [address] | + + + | Home Phone [...] Providers + +------+ + | Care Floor Mechanic Name | Role | Phone | [...] [facility] | | | | | [facility] [place] [facility] | [place], [place] | | | | | [address] | [address] | | | | | [address] | [phone] | | | | | [facility] | | | | | | Physician's | | | | | | [facility] [place], | | | | | | [place] [address] | | | | | | [phone] | | | +--------+--------+ + + + [...]
--- OUTSIDE RECORDS SUMMARY | ~2019-10-16 | XMS | Encounter Summary ---
Demographics + + + | Address | [address] | | | [place] [address] | + + + | Home Phone [...] Team Providers + +------+ + | Care Tool Design Checker Name | Role | Phone | + [...] + + | 12/28/ | Telephone | [facility] | Alanis, | Results, Imaging | | 2017 | | MEDICINE [address] | MD [place] | | | | | [facility] | [address] [place] [address] | | | | | [place] [address] | [place] [address] | | | | | [phone] | [phone] | | | | | | | [...] | | | | | [address] | | | | | | [place] [address] | | | | | | [phone] | | | | | | | | +--------+ + + + + | 12/20/ | Office | Audiology | Elisabet Munson MS | | | 2019 | Visit | | [facility] [address] | | | | | [address] [place] | | | | | | [place], [place] [address] | | | | | | [phone] | | | | | | | | +--------+ + + + + | 12/20/ | Office | Otolaryngology | Ulysses Genao MD | | | 2019 | Visit | | [address] | | | | | | [address] [place], | | | | | | [place] [address] | | | | | | [phone] | | | | | | | | +--------+ + + + + documented as of this encounter Visit Diagnoses Not on filedocumented in this encounter"
--- OUTSIDE RECORDS SUMMARY | ~2019-10-16 | XMS | Encounter Summary ---
Demographics + + + | Address | [address] | | | [place] [address] | + + + | Home Phone [...] Team Providers + +------+ + | Care Charger Tester Name | Role | Phone | + +------+ + | Pedrito Gutierrez MD | PCP | | + +------+ + Reason for Visit + + + | Reason | Comments | + + + | Memory loss | | + + + Encounter Details +--------+ + + + + | Date | Type | Department | Care Team | Description | +--------+ + + + + | 09/16/ | Telephone | [facility] | Miranda Lambert, | Memory loss | | 2006 | | Pain Center at | ANP | | | | | [facility] | | | | | | [address] | | | | | | Mailcode: CH15P | | | | | | [facility] | | | | | | and Healing, | | | | | | Building | | | | | | Floor [place], [place] | | | | | | [address] | | | | | | [phone] | | | +--------+ + + + [...]
--- OUTSIDE RECORDS SUMMARY | ~2019-10-16 | XMS | Encounter Summary ---
Demographics + + + | Address | [address] | | | [place] [address] | + + + | Home Phone [...] Team Providers + +------+ + | Care Surface Plate Inspector Name | Role | Phone | + +------+ + PCP | Unavailable | + +------+ + Encounter Details +--------+ + + + + | Date | Type | Department | Care Team | Description | +--------+ + + + + | 10/23/ | Office | | Note, Outpatient | [...] as of this encounter Progress Notes Interface, Ic Designer Custom In - 10/30/2005 2:06 AM PDT [id number] GEOVANNI Barnes [id number] Clinic Date: 10/23/2005 Clinic: Ms. Meehan comes in today for followup of her abdominal CT. The CT is normal. We will follow her for abdominal pain. I will see her again in 3 months. If she has exacerbation, she can come earlier. I also gave her 30 tablets of 5 mg oxycodone for the pain. Chris Padgett M.D. CD / [id number] / [id number] / [id number] / Electronically signed by Chris Padgett 10-29-2005 10:10:39 AM documented i n this encounter Plan of Treatment Not on filedocumented as of this encounter Visit Diagnoses Not on filedocumented in this encounter"
--- OUTSIDE RECORDS SUMMARY | ~2019-10-16 | XMS | Encounter Summary ---
Demographics + + + | Address | [address] | | | [place] [address] | + + + | Home Phone | | + + + | Preferred Language | Unknown | + + + | Marital Status | | + + + | Roman Catholic Affiliation | 1001 | + + [...] Team Providers + +------+ + | Care House Father Name | Role | Phone | + [...] [address] | | | | | milycare | Sulaim[address]ell | [address] | | | | | Medicare/Ion | , MD [address] | [address] [place] | | | | | escu | [address] | [place], [place] | | | | | Procedures | [place], | [address] Phone: | | | | | OFFICE VISIT | [place] | [phone] | | | | | REGULAR | [address] | Fax: | | | | | | Phone: | [phone] | | | | | | [phone] | | | | | | | Fax: | | | | | | | [phone] | | +--------+--------+ + + + + Encounter Details +--------+---------+ + + + | Date | Type | Department | Care Team | Description | +--------+---------+ + + + | 10/18/ | Office | [facility] | Elisabet Munson, | Encounter for | | 2014 | Visit | AUDIOLOGY AND | [facility] [address] | hearing evaluation | | | | HEARING AID SERVICES | [facility] [address] [facility] | (Primary Dx) | | | | [address] | [place] [address] | | | | | [facility] [address] [facility] | [phone] | | | | | [place] [address] | | | | | | [phone] | | | +--------+---------+ + + + [...] as of this encounter Progress Notes Jeimy Ceasarrafa, CCC-A - 10/18/2014 2:54 PM PDTReferring Provider: [...] both ears. Follow-up care with Dr. Genao, Thank you. documented in thi s encounter [...] | | | | | | [address] [facility] [address] | | | | | | [place] [address] | | | | | | [phone] | | | | | | | | +--------+ + + + + | 12/20/ | Office | Audiology | Elisabet MunsonMS | | | 2019 | Visit | | [facility] [address] | | | | [address] [place] | | | | | | [place] [address] | | | | | | [phone] | | | | | | | | +--------+ + + + + | 12/20/ | Office | Otolaryngology | Ulysses Genao MD | | | 2019 | Visit | | [address] | | | | | | [address] [place], | | | | | | [place] [address] | | | | | | [phone] | | | | | | | [...]
--- OUTSIDE RECORDS SUMMARY | ~2019-10-16 | XMS | Encounter Summary ---
Demographics + + + | Address | [address] | | | [place] [address] | + + + | Home Phone [...] Team Providers + +------+ + | Care Public Health Epidemiologist Name | Role | Phone | + [...] + + | 05/28/ | Office | [facility] Comprehensive | Delfina Molina, | LBP (Low Back Pain); | | 2006 | Visit | Pain Center at | ANP | Bilateral Knee | | | | [facility] | | Pain; Arthroplasty | | [...] Migraine Headache; | | | | Floor [place], [place] | | Herniated Lumbar | | | | [address] | | Intervertebral Disc | | | | [phone] | | L4-5; Fibromyalgia | | | [...] Belinda Meehan is a 47 y.o. female [facility] Comprehensive [...] diagnostics and lab results. 6. [facility] physical rehabiliation. 7. Schedule follow up in one month or sooner if needed - The pateint was asked to call the clinic with any concerns or questions. DELFINA MOLINA [facility] Mail code CH 4P [facility] [address] [place] [address] asha Nolasco - 05/28/2007 10:01 AM [...] of 103.2 she was seen here at [facility] today the temp is 100.2 3. Do [...]
--- OUTSIDE RECORDS SUMMARY | ~2019-10-16 | XMS | Encounter Summary ---
Demographics + + + | Address | [address] | | | [place] [address] | + + + | Home Phone | | + + + | Preferred Language | Unknown | + + + | Marital Status | | + + + | Episcopalian Affiliation | 1001 | + + + | Race | Unknown | + + + | Ethnic Group | Unknown | + + + Author + + + | Author | [facility] | | | and Jairana | + + + | Organization | [facility] [...] Team Providers + +------+ + | Care Steamtable Attendant Railroad Name | Role | Phone | + [...] + + | 07/16/ | Telephone | [facility] | Alanis, | Results, Imaging | | 2017 | | MEDICINE [address] | MD Petrona | | | | | [facility] | [address] [place] [address] | | | | | [place] [address] | [place] [address] | | | | | [phone] | [phone] | | | | | | | [...] | | | | | [place] [address] | | | | | | [phone] | | | | | | | | +--------+ + + + + | 12/20/ | Office | Audiology | Elisabet Munson MS | | | 2019 | Visit | | [facility] [address] | | | | | | [address] [place] | | | | | | [place], [place] [address] | | | | | | [phone] | | | | | | | | +--------+ + + + + | 12/20/ | Office | Otolaryngology | Ulysses Genao MD | | | 2019 | Visit | | [address] | | | | | | [address] [place], | | | | | | [place] [address] | | | | | | [phone] | | | | | | | | +--------+ + + + + documented as of this encounter Visit Diagnoses Not on filedocumented in this encounter"
--- OUTSIDE RECORDS SUMMARY | ~2019-10-16 | XMS | Encounter Summary ---
Demographics + + + | Address | [address] | | | [place] [address] | + + + | Home Phone [...] Providers + +------+ + | Care Marketing Forecaster Name | Role | Phone | + [...] + | 01/17/ | Refill | [facility] | Alanis, | Medication Refill | | 2018 | | MEDICINE [address] [place] [address] | MD Petrona | | | | | [facility] [place] | [address] [place] [address] | | | | | [place] [address] | [place] [address] | | | | | [phone] | [phone] | | | | | | | [...] | | | | | [place] [address] | | | | | | [phone] | | | | | | | | +--------+ + + + + | 12/20/ | Office | Audiology | DarioElisabet ramires MS | | | 2019 | Visit | | [facility] [address] | | | | | [address] [place] | | | | | | [place], [place] [address] | | | | | | [phone] | | | | | | | | +--------+ + + + + | 12/20/ | Office | Otolaryngology | Ulysses Genao MD | | | 2019 | Visit | | [address] | | | | | | [address] [place], | | | | | | [place] [address] | | | | | | [phone] | | | | | | | | +--------+ + + + + documented as of this encounter Visit Diagnoses Not on filedocumented in this encounter"
--- OUTSIDE RECORDS SUMMARY | ~2019-10-16 | XMS | Encounter Summary ---
Demographics + + + | Address | [address] | | | [place] [address] | + + + | Home Phone | | + + + | Preferred Language | Unknown | + + + | Marital Status | | + + + | Judaism Affiliation | 1001 | + + + | Race | Unknown | + + + | Ethnic Group | Unknown | + + + Author + + + | Author | [facility] | | | and Jairana | + + + | Organization | [facility] | | | [...] Team Providers + +------+ + | Care Operator Electronic Warfare Name | Role | Phone | + [...] + | 05/18/ | Refill | [facility] | Alanis, | Medication Refill | | 2016 | | MEDICINE [address] [place] [address] | MD Petrona | | | | | [facility] | [address] [place] [address] | | | | | [place] [address] | [place] [address] | | | | | [phone] | [phone] | | | | | | | [...] | | | | | [place] [address] | | | | | | [phone] | | | | | | | | +--------+ + + + + | 12/20/ | Office | Audiology | DarioElisabet ramires MS | | | 2019 | Visit | | [facility] [address] | | | | | [address] [place] | | | | | | [place], [place] [address] | | | | | | [phone] | | | | | | | | +--------+ + + + + | 12/20/ | Office | Otolaryngology | Ulysses Genao MD | | | 2019 | Visit | | [address] | | | | | | [address] [place], | | | | | | [place] [address] | | | | | | [phone] | | | | | | | | +--------+ + + + + documented as of this encounter Visit Diagnoses Not on filedocumented in this encounter"
--- OUTSIDE RECORDS SUMMARY | ~2019-10-16 | XMS | Encounter Summary ---
Demographics + + + | Address | [address] | | | [place] [address] | + + + | Home Phone | | + + + | Preferred Language | Unknown | + + + | Marital Status | | + + + | Bahai Affiliation | 1001 | + + + | Race | Unknown | + + + | Ethnic Group | Unknown | + + + Author + + + | Author | [facility] | | | and Jairana | + + + | Organization | [facility] | | [...] Team Providers + +------+ + | Care Jewelry Salesperson Name | Role | Phone | + +------+ + | Petrona Thapa | PCP | | | MD | | | + +------+ + Encounter Details +--------+ + + + + | Date | Type | Department | Care Team | Description | +--------+ + + + + | 09/06/ | Abstract | [facility] | Provider, | | | 2018 | | GASTROENTEROLOGY | MD Colin [address] | | | | | [address] [facility] | Sulma Kovacs. | | | | | [address] [place] | [place] [address] | | | | | [address] | | | | | | [phone] | | | +--------+ + + + [...] | | | | | [place] [address] | | | | | | [phone] | | | | | | | | +--------+ + + + + | 12/20/ | Office | Audiology | Elisabet Munson MS | | 2019 | Visit | | [facility] [address] | | | | | | [facility] [address] [place] | | | | | | [place] [address] | | | | | | [phone] | | | | | | | | +--------+ + + + + | 12/20/ | Office | Otolaryngology | Ulysses Genao MD | | | 2019 | Visit | | [address] [facility] | | | | | | [address] [place], | | | | | | [place] [address] | | | | | | [phone] | | | | | | | | +--------+ + + + + documented as of this encounter Procedures + +--------+ + + + | Procedure Name | Priori | Date/Time | Associated Diagnosis | Comments | | | ty | | | | + +--------+ + + + | EXTERNAL: | Routin | 12/18/2017 | | Results for this | | COLONOSCOPY | e | | | procedure are in the | | | | | | results section. | + +--------+ + + + documented in this encounter Results EXTERNAL: COLONOSCOPY (12/18/2017) + + + + + + | Component | Value | Ref Range | Performed | Pathologist | | | | | At | Signature | + + + + + + | Colonoscopy | See Full Report ~ | | EXTERNAL | | | | Luther Brito MD | | LAB | | | Impression, | | | | | | External | | | | | + + + + + + + +---------+ + + | Performing | Address | City/State/Zipcode | Phone Number | | Organization | | | | + +---------+ + + | EXTERNAL LAB | | | | + +---------+ + + documented in this encounter Visit Diagnoses Not on filedocumented in this encounter"
--- OUTSIDE RECORDS SUMMARY | ~2019-10-16 | XMS | Encounter Summary ---
Demographics + + + | Address | [address] | | | [place] [address] | + + + | Home Phone [...] Team Providers + +------+ + | Care Epic Ambulatory Specialists Name | Role | Phone | + [...] + + | 03/30/ | Telephone | [facility] | Alanis, | Appointment | | 2019 | | MEDICINE [address] [place] [address] | MD Petrona | | | | | [facility] | [address] [place] [address] | | | | | [place] [address] | [place] [address] | | | | | [phone] | [phone] | | | | | | | [...] | | | | | [place] [address] | | | | | | [phone] | | | | | | | | +--------+ + + + + | 12/20/ | Office | Audiology | Elisabet Munson MS | | 2019 | Visit | | [address] | | | | | | [address] [place] | | | | | | [place] [address] | | | | | | [phone] | | | | | | | | +--------+ + + + + | 12/20/ | Office | Otolaryngology | Ulysses Genao MD | | | 2020 | Visit | | [address] | | | | | | [address] [place], | | | | | | [place] [address] | | | | | | [phone] | | | | | | | | +--------+ + + + + documented as of this encounter Visit Diagnoses Not on filedocumented in this encounter"
--- OUTSIDE RECORDS SUMMARY | ~2019-10-16 | XMS | Encounter Summary ---
Demographics + + + | Address | [address] | | | [place] [address] | + + + | Home Phone [...] Author + + + | Author | [facility] | + + + | Organization | [facility] | + + + | Address | [...] Team Providers + +------+ + | Care Material Flow Engineer Name | Role | Phone | [...] | | | | | abdominal | [place] | [address] | | | | | pain | Health & | [facility] | | | | | Procedures | Science | [address] [place], | | | | | REQUEST TO | University | [place] | | | | | SURGERY | [address] | [address] | | | | | EXPORT COORDINATOR | Naeem Mcrae | Phone: | | | | | [place] | Rd | [phone] | | | | | EXPLORATORY | [place], [place] | Fax: | | | | | OF ABDOMEN | [address] | [phone] | | | | | [place] | | | | | | [...] | | | | | | [address] [place], | | | | | | | [place] | | | | | | | [address] | | | | | | | Phone: | | | | | | | [phone] | | | | | | | Fax: | | | | | | | [phone] | +--------+--------+ + + + + Encounter [...] | [facility] | [place], [place] | | | | | and Healing, | [address] | | | | | Building 1, 6th | [phone] | | | | | Floor [place], [place] | | | | | | [address] | | | | | | [phone] | | | +--------+---------+ + + + [...] the resident s note. CHRIS RUANO MD [facility] [address] [facility], 6th [place] [address] Chris Peralta - 10:55 AM [...] not work at this time. Lives in [place], [place] FH: Noncontributory ROS: No recent fevers, [...] | + + + + + | [facility] | [address] | [place] [address] | | | PATHOLOGY | [address] | | | + + + + + | [facility] | [address] | [place] [address] | | | PATHOLOGY | [address] [...]
--- OUTSIDE RECORDS SUMMARY | ~2019-10-16 | XMS | Encounter Summary ---
Demographics + + + | Address | [address] | | | [place] [address] | + + + | Home Phone [...] Team Providers + +------+ + | Care Lasting Machine Operator Name | Role | Phone [...] Rd | | | | | | [place], [place] | | | | | | [address] | | | +--------+ + + + [...]
--- OUTSIDE RECORDS SUMMARY | ~2019-10-16 | XMS | Encounter Summary ---
Demographics + + + | Address | [address] | | | [place] [address] | + + + | Home Phone [...] Team Providers + +------+ + | Care Plug Stitcher Name | Role | Phone | [...] | | | | | (degenerativ | [place], [place] | | | | | e joint | [address] | [address] | | | | | disease) of | | Phone: | | | | | knee Knee | | [phone] | | | | | pain Major | | Fax: | | | | | depressive | | [phone] | | | | | disorder, | [...] + + + + | 04/20/ | Radio Survey Worker | [facility] | Miranda Lambert, | LBP (Low Back Pain); | | 2006 | | Pain Center at | ANP | 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
--- OUTSIDE RECORDS SUMMARY | ~2019-10-16 | XMS | Encounter Summary ---
Demographics + + + | Address | [address] | | | [place] [address] | + + + | Home Phone | | + + + | Preferred Language | Unknown | + + + | Marital Status | | + + + | Gnosticism Affiliation | 1001 | + + + | Race | Unknown | + + + | Ethnic Group | Unknown | + + + Author + + + | Author | [facility] | | | and Jairana | + + + | Organization | [facility] | | | [...] Team Providers + +------+ + | Care Oil And Gas Specialist Name | Role | Phone | + +------+ + | [place]a Thapa | PCP | | | MD | | | + +------+ + Reason for Visit +--------+ + | Reason | Comments | +--------+ + | Pain | | +--------+ + Encounter Details +--------+ + + + + | Date | Type | Department | Care Team | Description | +--------+ + + + + | 01/21/ | Telephone | [facility] | Alanis, | Pain | | 2019 | | MEDICINE [address] [place] [address] | MD Petrona | | | | | [facility] | [address] [place] [address] | | | | | [place] [address] | [place] [address] | | | | | [phone] | [phone] | | | | | | | [...] | | | | | [place] [address] | | | | | | [phone] | | | | | | | | +--------+ + + + + | 12/20/ | Office | Audiology | Elisabet Munson MS | | 2019 | Visit | | [facility] [address] | | | | | | [address] [place] | | | | | | [place] [address] | | | | | | [phone] | | | | | | | | +--------+ + + + + | 12/20/ | Office | Otolaryngology | Ulysses Genao MD | | | 2020 | Visit | | [address] [facility] | | | | | | [address] [place], | | | | | | [place] [address] | | | | | | [phone] | | | | | | | | +--------+ + + + + documented as of this encounter Visit Diagnoses Not on filedocumented in this encounter"
--- OUTSIDE RECORDS SUMMARY | ~2019-10-16 | XMS | Encounter Summary ---
Demographics + + + | Address | [address] | | | [place] [address] | + + + | Home Phone | | + + + | Preferred Language | Unknown | + + + | Marital Status | | + + + | Yarsanism Affiliation | 1001 | + + + | Race | Unknown | + + + | Ethnic Group | Unknown | + + + Author + + + | Author | [facility] | | | and Jairana | + + + | Organization | [facility] | | [...] Team Providers + +------+ + | Care Dental Patient Coordinator Name | Role | Phone | [...] + + | 02/17/ | Clinical | [facility] | Alanis, | Vitamin B12 | | 2017 | Support | MEDICINE [address] [place] [address] | MD Petrona | deficiency | | | | [facility] | [address] [place] [address] | | | | | [place] [address] | [place] [address] | | | | | [phone] | [phone] | | | | | | | [...] Progress Notes Maggie Montoya LPN - 02/17/2018 11:15 AM PDT Administrations [...] [place] | | | | | | [address] [place] [address] [place] | | | | | | [place] [address] | | | | | | [phone] | | | | | | | | +--------+ + + + + | 12/20/ | Office | Audiology | Elisabet Munson MS | | | 2019 | Visit | | [facility] [address] | | | | | | [address] [place] | | | | | | [place], [place] [address] | | | | | | [phone] | | | | | | | | +--------+ + + + + | 12/20/ | Office | Otolaryngology | Ulysses Genao MD | | | 2019 | Visit | | [address] | | | | | | [address] [place], | | | | | | [place] [address] | | | | | | [phone] | | | | | | | [...] | | | | First dose on [facility] 10/15/17 at 1215 | | | | [...]
--- OUTSIDE RECORDS SUMMARY | ~2019-10-16 | XMS | Encounter Summary ---
Demographics + + + | Address | [address] | | | [place] [address] | + + + | Home Phone [...] Providers + +------+ + | Care Terminal Clerk Name | Role | Phone | [...] Description | +--------+--------+ + + + | 03/28/ | Refill | [facility] | Alanis, | Medication Refill | | 2016 | | MEDICINE [address] [place] [address] | MD Petrona | | | | | [facility] | [address] [place] [address] | | | | | [place] [address] | [place] [address] | | | | | [phone] | [phone] | | | | | | | [...] | | | | | [place] [address] | | | | | | [phone] | | | | | | | | +--------+ + + + + | 12/20/ | Office | Audiology | DarioElisabet ramires MS | | | 2019 | Visit | | [facility] [address] | | | | | | [address] [place] | | | | | | [place], [place] [address] | | | | | | [phone] | | | | | | | | +--------+ + + + + | 12/20/ | Office | Otolaryngology | Ulysses Genao MD | | | 2019 | Visit | | [address] | | | | | | [address] [place], | | | | | | [place] [address] | | | | | | [phone] | | | | | | | | +--------+ + + + + documented as of this encounter Visit Diagnoses Not on filedocumented in this encounter"
--- OUTSIDE RECORDS SUMMARY | ~2019-10-16 | XMS | Encounter Summary ---
Demographics + + + | Address | [address] | | | [place] [address] [...] Team Providers + +------+ + | Care Debit Agent Name | Role | Phone | + +------+ + | Sulaiman Carrera MD | PCP | | + +------+ + Encounter Details +--------+ + + + + | Date | Type | Department | Care Team | Description | +--------+ + + + + | 01/28/ | Document-Sc | UNKNOWN DEPARTMENT | Unknown . | | | 2006 | anned | [address] | | | | | | [address] | | | | | | [place], [place] | | | | | | [address] | | | +--------+ + + + [...]
--- OUTSIDE RECORDS SUMMARY | ~2019-10-16 | XMS | Encounter Summary ---
Demographics + + + | Address | [address] | | | [place] [address] | + + + | Home Phone | | + + + | Preferred Language | Unknown | + + + | Marital Status | | + + + | Bahai Affiliation | 1001 | + + + | Race | Unknown | + + + | Ethnic Group | Unknown | + + + Author + + + | Author | [facility] | | | and Jairana | + + + | Organization | [facility] | | | and [...] Team Providers + +------+ + | Care Entertainment Director Name | Role | Phone | + +------+ + | Petrona Thapa | PCP | | | MD | | | + +------+ + Reason for Visit + + + | Reason | Comments | + + + | Chest Pain | | + + + Encounter Details +--------+ + + + + | Date | Type | Department | Care Team | Description | +--------+ + + + + | 09/14/ | Telephone | [facility] | Alanis, | Chest Pain | | 2019 | | MEDICINE [address] [place] [address] | MD Petrona | | | | | [facility] | [address] [facility] | | | | | [place] [address] | [place] [address] | | | | | [phone] | [phone] | | | | | | | [...] | | | | | [place] [address] | | | | | | [phone] | | | | | | | | +--------+ + + + + | 12/20/ | Office | Audiology | Elisabet Munson MS | | 2019 | Visit | | [facility] | | | | | [address] [place] | | | | | | [place] [address] | | | | | | [phone] | | | | | | | | +--------+ + + + + | 12/20/ | Office | Otolaryngology | Ulysses Genao MD | | | 2020 | Visit | | [address] | | | | | | [address] [place], | | | | | | [place] [address] | | | | | | [phone] | | | | | | | | +--------+ + + + + documented as of this encounter Visit Diagnoses Not on filedocumented in this encounter"
--- OUTSIDE RECORDS SUMMARY | ~2019-10-16 | XMS | Encounter Summary ---
Demographics + + + | Address | [address] | | | [place] [address] | + + + | Home Phone [...] Team Providers + +------+ + | Care Information Systems Operator Name | Role | Phone | + +------+ + PCP | Unavailable | + +------+ + Encounter Details +--------+ + + + + | Date | Type | Department | Care Team | Description | +--------+ + + + + | 03/20/ | Office | [facility] | Clinic, [...] as of this encounter Progress Notes Interface, [employer] Sergeant In - 03/29/2005 5:05 AM PDT [id number] [facility] Date: 03/20/2005 Clinic: Rheumatology Primary Care Physician: Dr. Pedrito Gutierrez. Subjective: Belinda Meehan is a 45-year-old woman who I periodically see for fibromyalgia. She has found trigger point injections to be fairly useful for some of her myofascial trigger points that are peripheral pain generators. She is feeling somewhat worse since the last visit in July 2004. Since that visit, she has had a shoulder surgery for shoulder arthritis, I believe. She has had excess skin removal around her abdomen and thighs after gastric bypass surgery. She is also due to have a knee surgery for a meniscal tear. She has a lot of trouble with sleep. She is able to get to sleep, but then she is unable to get comfortable by about 3 in the morning, and she is up. She generally has to get up and move, and can be in bed no longer. On VAS, pain is 8/10, sense of fatigue is 3/10, and sense of disability is 5/10. Her skilled nursing case manager needs a note from me that she still has fibromyalgia despite having had the gastric bypass surgery. I generally never see anybody loose their fibromyalgia who has had gastric bypass surgery, often they do get some pain reductions and improvement in energy. There is the one study that showed that 50% of patients who got gastric bypass surgery pretty well lost their criteria for fibromyalgia, although I do not believe Belinda is one of them. She still has all the myofascial trigger points, tender points, and chronic widespread pain which is the criteria for the diagnosis of fibromyalgia by the [employer]. She also has the associated problems of nonrestorative sleep. Current Medications: Betoptic S, promethazine as needed, cyanocobalamin 100 mg every 2 weeks, ranitidine 150 mg b.i.d., wellbutrin 300 mg daily, hydrocodone 10/325 p.r.n. typical use is 2 to 4 per day 3 times a week, vitamin E 400 units, magnesium 400 mg b.i.d., calcium 600 mg q.i.d., multivitamin b.i.d., and aspirin 81 mg daily. Allergies: PENICILLIN, CODEINE, KEFLEX, SULFA, CIPROFLOXACIN, AND CLINDAMYCIN. Objective: Vital Signs: Weight is 165, pulse 56 and regular, blood pressure 104/62. She has tender myofascial trigger points in the bilateral trapezius, the left levator scapula, bilateral quadratus lumborum, left upper gluteus edwardo, and bilateral piriformis area. Assessment and Plan: 1. We went ahead and did the trigger point injections using 0.5% procaine for a total of 14 mL. She tolerated the injections quite well, the lower injections had about half of a mg of Depo-Medrol added to 12 mL of injectate. 2. I do think it is worth a trial of Mirapex to treat restless legs. There is a television repairman in [place] who is using large doses to reduce fibromyalgia pain by 50%. I do think it is worth treating restless legs as anything that we can do to improve restorative sleep is helpful in fibromyalgia. I have given her samples of 0.25 mg and 0.5, and she can gradually increase her dose to 1 to 2 mg as tolerated at bedtime. 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 This is a hypothesis but is being looked at carefully by researchers. She may pass this on to Dr. Gutierrez. I will see her back in about 4 months. Caitlin Rviera M.S., F.N.P. / [id number] / [id number] / [id number] / [id number] cc: Pedrito Gutierrez M.D. [address] [place] [address] Belinda Meehan [address] [place] [address] Electronically signed by Caitlin Rivera 03-28-2005 01:43:14 PM documented i n this encounter Plan of Treatment Not on filedocumented as of this encounter Visit Diagnoses Not on filedocumented in this encounter"
--- OUTSIDE RECORDS SUMMARY | ~2019-10-16 | XMS | Encounter Summary ---
Demographics + + + | Address | [address] | | | [place] [address] | + + + | Home Phone [...] Team Providers + +------+ + | Care Electric Blanket Packer Name | Role | Phone | [...] as of this encounter Progress Notes Interface, Enamel Sprayer In - 01/11/2005 5:17 PM PDT [place] [facility] [address] [place] [address] or June 26, 2003 Pedrito Gutierrez M.D. [address] [place] [address] RE: BELINDA MEEHAN MR #: [id number] Dear Dr. Gutierrez: I had the pleasure of seeing your patient, Ms. Belinda Meehan, today in the [facility] Division of Rheumatology Clinic. She was [...] after that visit. Sincerely, Sesar Nash M.D. NURIA / SHARIF [id number] / [id number] / [id number] / [id number] cc: Kelley Alegre [address] [place] [address] FAX: [phone] signed by Interface, Enamel Sprayer In at 01/11/2005 5:17 PM PDTdocumented in this encounter Plan of Treatment Not on filedocumented as of this encounter Visit Diagnoses Not on filedocumented in this encounter"
--- OUTSIDE RECORDS SUMMARY | ~2019-10-16 | XMS | Encounter Summary ---
Demographics + + + | Address | [address] | | | [place] [address] | + + + | Home Phone [...] Providers + +------+ + | Care Shovel Mechanic Name | Role | Phone | [...] | | | | | Encounter | [place], [place] | [place] | | | | | for | [address] | [address] | | | | | long-term | | Phone: | | | | | (current) | | [phone] | | | | | use of other | | Fax: | | | | | medications | | [phone] | | | | | LBP (low [...] 04/21/ | Office | [facility] at [facility] | Lukasz Charles, | Major depressive | | 2012 | Visit | [address] | PhD [address] | disorder, recurrent | | | | Mailcode: CH15P | [place], [place] | episode, moderate | | | | [place] for [facility] | [address] | ([facility]) (Primary Dx); | | | | and Healing, | [phone] | LBP (low back pain); | | | | | | Fibromyalgia; | | | | Floor [place], [place] | | Adjustment disorder | | | | [address] | | with anxiety | | | | [phone] | | | +--------+---------+ + + + [...] pain. I have not seen her since 200 9. She has started seeing a new primary care provider who recommended that she return to [facility] for pain assessment and treatment. She reported [...] some changes in her living situation. Diagnosis: [place] I: 1. (296.32) Major depressive disorder, recurrent, moderate. 2. (309.24) Adjustment disorder with anxiety. [place] II: Deferred [place] III: abdominal pain, migraine headache, low back pain, fibromyalgia. [place] IV: low finances [place] V: GAF 55-60 Plan: return in 1 month. Check mood, pain, activity. Ask about visiting with Dr. Montero, spinal cord stimulator, any changes at home. Continue cognitive/behavioral therapy. Total time spent with patient was approximately 50 minutes. LUKASZ CHARLES PHD [facility] [address] [place] [address] [place] [address] documented in this en counter Plan of [...]
--- OUTSIDE RECORDS SUMMARY | ~2019-10-16 | XMS | Encounter Summary ---
Demographics + + + | Address | [address] | | | [place] [address] | + + + | Home Phone [...] Team Providers + +------+ + | Care Underground Drill Operator Name | Role | Phone | [...] order); | | | | Ave Mailcode: [facility] | [address] | Diarrhea | | | | [facility] | [place], [place] | | | | | and Healing, | [address] | | | | | [place] [address] [facility] | [phone] | | | | | [place], [place] | | | | | | [address] | | | | | | [phone] | | | +--------+ + + + [...]
--- OUTSIDE RECORDS SUMMARY | ~2019-10-16 | XMS | Encounter Summary ---
Demographics + + + | Address | [address] | | | [place] [address] | + + + | Home Phone [...] Providers + +------+ + | Care Assistant Unit Forester Name | Role | Phone | + +------+ + | Petrona Thapa | PCP | | | MD | | | + +------+ + Encounter Details +--------+ + + + + | Date | Type | Department | Care Team | Description | +--------+ + + + + | 08/11/ | Orders Only | [facility] | Nikita Guzman W, | | | 2018 | | [facility] OP INFUSION | PharmD [address] | | | | | [address] | [address] [place], [place] | | | | | [place], [place] | [address] | | | | | [address] | | | | | | [phone] | | | +--------+ + + + [...] documented as of this encounter Progress Notes Nikita Guzman, Anna Marie - 08/11/2018 8:40 AM PSTIn September 2018 the Electronic Medical Record (EMR) system used by [facility] will be updated. The category used to file the infusion therapy plan currently ordered for this patient is to be discontinued. The changes to the order category within the EMR are administrative and in no way affect t he care of the patient. This encounter was created in the EMR to review the current orders for this patient and natalie e the necessary changes to insure continuity of care. Please contact the [facility] at with any questions regarding these keating es. documented in this encounter Plan of Treatment [...] | | | | | [place] [address] | | | | | | [phone] | | | | | | | | +--------+ + + + + | 12/20/ | Office | Audiology | Elisabet Munson MS | | | 2019 | Visit | | [facility] [address] | | | | | | [address] [place] | | | | | | [place] [address] | | | | | | [phone] | | | | | | | | +--------+ + + + + | 12/20/ | Office | Otolaryngology | Ulysses Genao MD | | | 2019 | Visit | | [address] [place] | | | | | | [address] [place], | | | | | | [place] [address] | | | | | | [phone] | | | | | | | | +--------+ + + + + documented as of this encounter Visit Diagnoses Not on filedocumented in this encounter"
--- OUTSIDE RECORDS SUMMARY | ~2019-10-16 | XMS | Encounter Summary ---
Demographics + + + | Address | [address] | | | [place] [address] | + + + | Home Phone [...] Providers + +------+ + | Care It Project Coordinator Name | Role | Phone | + +------+ + | Maria Estehr Cintron MD | PCP | | + [...] | | | Metabolism | bypass | [address] | [address] | | | | | Hypovitamino | [address], | Ave | | | | | sis D [address]12 | [address] | [place], [place] | | | | | nutritional | [place], [place] | [address] | | | | | deficiency | [address] | Phone: | | | | | Other | Phone: | [phone] | | | | | protein-jose manuel | [phone] | Fax: | | | | | nick | Fax: | [phone] | | | | | malnutrition | [phone] | | | | | | Weight | | | | | | | gain | | | | | | | Procedures | | | | | | | CONSULT TO | | | | | | | ENDO | | | | | | | [address] | | | | | | | [address] | | | +--------+--------+ + + + [...] | | | | | | | [facility] | | | | | | | Health and | | | | | | | Healing, | | | | | | | [address] | | | | | | | [place], [place] | | | | | | | [address] | | | | | | | Phone: | | | | | | | [phone] | | | | | | | Fax: | | | | | | | [phone] | +--------+--------+ + + + + Encounter Details +--------+---------+ + + + | Date | Type | Department | Care Team | Description | +--------+---------+ + + + | 09/23/ | Office | Digestive Health | Patricia Banegas, | H/O gastric bypass | | 2013 | Visit | Center at [address] | CONTRACTING OFFICER [address] | (Primary Dx); | | | | [address] | [facility] [address] | Hypovitaminosis D; | | | | Mailcode: Center | [place], [place] | B12 nutritional | | | | for Health and | [address] | deficiency; Other | | | | Healing, [address] | [phone] | protein-calorie | | | | [facility] [place] | | malnutrition; Weight | | | | [address] | | gain; Teeth decayed | | | | [phone] | | | +--------+---------+ + + + [...] make an appt with me Calories approx. 3481-3930 per day when 3 mos or more out from surgery to maintain weight l oss. Calories may need to be adjusted up for individual needs. I recommend eating 5-6 times per day. [employer] Protein 60-100+ gms per day Water: 64 oz per day, your urine should be light yellow. Please let up know if you would like a referral to see the Applied Psychology Teacher. I would be happy to put in referrals to [facility], medical membership is $198 for 3 mos. If you are 12 mos or more out from surgery and would like referral for excess skin removal please let us know. Call us if you have any questions or concerns, or send DivvyCloud message for non-urgent issue s. Patricia Banegas RN, [facility] Nurse Practitioner for Bariatric Surgery [facility] | [address] | [place] | [address] | documented in this encounter Progress Notes [...] Hives Mainly in the legs Clindamycin Codeine Rovnpti-Pyzkgdmiqc-Mth-Caff Balance problems Fioricet W/Codeine (Tzhydjgkoj-Zhntqfvogt-Yvn-Cod) Keflex (Cephalexin) Morphine IM ( only in [facility]) made gut pain worse 08/27/06: Trial [...] replacement 08/2007 right knee Lumbar fusion 05/2008 L5-U6lfikkt with bone spur removals Appendectomy Cholecystectomy section [...] to POC and will call or send mymxlog message if any issues. Start time 1325, end time 1353. I spent a total of 28 minutes face to face with this patie nt. Over 50% of visit was in counseling. ~ 2 Minutes of additional time spent reviewing chart prior to visit and documenting after t his visit. Patricia Banegas RN, [facility]- Nurse Practitioner for Bariatric Surgery [facility] | [address] | [place], [place] | [address] | documented in this e ncounter Plan [...]
--- OUTSIDE RECORDS SUMMARY | ~2019-10-16 | XMS | Encounter Summary ---
Demographics + + + | Address | [address] | | | [place] [address] | + + + | Home Phone [...] + + + | Author | [facility] | + + + | Organization | [facility] | + + + | [...] Team Providers + +------+ + | Care Transportation Maintenance Specialist Name | Role | Phone | [...] | | | | FAMILY | Rd [place], | | | | | | MEDICINE | [place] | | | | | | [address] | [address] | | | | | | [address] [place] | Phone: | | | | | | [place], | [phone] | | | | | | [place] [address] | Fax: | | | | | | Phone: | [phone] | | | | | | [phone] | | | | | | | Fax: | | | | | | | [phone] | | +--------+--------+ + + + + [...] | (Primary Dx) | | | | [place] for [facility] | [place], [place] | | | | | and Healing, | [address] | | | | | [facility] | [phone] | | | | | Floor [place], [place] | | | | | | [address] | | | | | | [phone] | | | +--------+---------+ + + + [...] surgery. She is being [facility]e d with [facility] for metabolic syndrome and hypothyroidism - Dr. Meeks, emotional issue s - Dr. Lukasz Ogden, and her PCP in [place]. She has sx of stress urinary incontinence [...] treated. She would like a urology or CINDER SNAPPER referral as appropriate. Labs ordered. See in [...] [place] | | | | | | [place] [address] | | | | | | [phone]. | | | | | | Sincere [...] [facility] | [address] | [place], [place] | | | UN[facility] | | [address] | | + + + + + [...] | pg/mL | | | | | [facility]. | | | | + + + + + + + + | Specimen | + + | | + + + + + + + | Performing | Address | City/State/Zipcode | Phone Number | | Organization | | | | + + + + + | [facility] | [address] | [place] [address] | | | LABORATORY | | | [...] RLB ([facility]) | | | [facility] [place] [address] | | | [place] [address] | | + + + + + + + + | Performing | Address | City/State/Zipcode | Phone Number | | Organization | | | | + + + + + | [facility] | [address] | [place] [address] | | | LABORATORY | | | [...] RLB ([facility]) | | | [facility] [place] [address] | | | [place] [address] | | + + + + + + + + | Performing | Address | City/State/Zipcode | Phone Number | | Organization | | | | + + + + + | [facility] | [address] | [place] [address] | | | LABORATORY | | | [...] Performed At | + + + | [address] Estimated GFR > 60 mL/min/1.73 sq m if non- | [facility] | | [address] Estimated GFR > 60 mL/min/1.73 sq m [...] | + + + + + | [facility] DEPARTMENT OF | [address] [facility] | [place] [address] | | | PATHOLOGY | [address] | | | + + + + + | [facility] DEPARTMENT OF | [address] [facility] | [place] [address] | | | PATHOLOGY | [address] [...] | [facility] | [address] [facility] | [place] [address] | | | PATHOLOGY | [address] | | | + + + + + | [facility] | [address] [facility] | [place] [address] | | | PATHOLOGY | [address] | | | + + + + + documented in this encounter Visit Diagnoses + + | Diagnosis | + + | Status post bariatric surgery - Primary Bariatric surgery status | + + documented in this encounter"
--- OUTSIDE RECORDS SUMMARY | ~2019-10-16 | XMS | Encounter Summary ---
Demographics + + + | Address | [address] | | | [place] [address] | + + + | Home Phone [...] Team Providers + +------+ + | Care Mannequin Maker Name | Role | Phone | [...] | Pain | Diagnoses | [place], | [place], | | | | Management | LBP (low | NIHARIKA Jean | Lukasz Rhodes, PhD | | | | | back pain) | [address] | [address] | | | | | DJD | [address] | Ave | | | | | (degenerativ | [place], [place] | [place], [place] | | | | | e joint | [address] | [address] | | | | | disease) of | | Phone: | | | | | knee Knee | | [phone] | | | | | pain Major | | Fax: | | | | | depressive | | [phone] | | | | | disorder, | [...] 03/03/ | Office | [facility] | Lukasz Charles, | Major Depressive | | 2007 | Visit | [address] | PhD [address] | Disorder, Recurrent | | | | Mailcode: [facility] | [place], [place] | Episode, Moderate | | | | [facility] | [address] | ([facility]); LBP (Low Back | | | | and Healing, | [phone] | Pain); Bilateral | | | | | | Knee Pain; | | | | Floor [place], [place] | | Fibromyalgia | | | | [address] | | syndrome 729.1; | | | | [phone] | | Adjustment Disorder | | | [...] seems to be doing good self-care. Diagnosis: [place] I: 1. (296.32) Major depressive disorder, recurrent, moderate. 2. (309.24) Adjustment disorder with anxiety. 3. 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 [place] II: Deferred [place] III: abdominal pain, migraine headache, low back pain. [place] IV: low finances [place] V: GAF 55-60 Plan: return with next medical follow-up appointment. Check mood, pain, relaxation, activ ity, distraction, eating. Continue cognitive/behavioral therapy. Total time spent with patient was approximately 45 minutes. LUKASZ CHARLES PHD [facility] [address] [facility], 4th [place] [address] documented in this encount er Plan of Treatment + + +--------+ + + | Name | Type | Priori | Associated Diagnoses | Order Schedule | | | | ty | | | + + +--------+ + + | [place] PSYCHOTHERPY, | Procedures | Routin | Major Depressive | Ordered: 03/03/2008 | | OFFICE (19-45) | | e | Disorder, Recurrent | [...]
--- OUTSIDE RECORDS SUMMARY | ~2019-10-16 | XMS | Encounter Summary ---
Demographics + + + | Address | [address] | | | [place] [address] | + + + | Home Phone [...] Team Providers + +------+ + | Care Generation Mechanic Helper Name | Role | Phone | [...] Pavilion | | | | | | [place], [place] | | | | | | [address] | | | | | | [phone] | | | +--------+ + + + [...]
--- OUTSIDE RECORDS SUMMARY | ~2019-10-16 | XMS | Encounter Summary ---
Demographics + + + | Address | [address] | | | [place] [address] | + + + | Home Phone [...] Providers + +------+ + | Care Service Desk Technician Name | Role | Phone | [...] | Pain | Diagnoses | Miracle, | [place], | | | | Management | LBP (low | NIHARIKA Jean | Lukasz Rhodes, PhD | | | | | back pain) | [address] | | | | | DJD | [address] | Ave | | | | | (degenerativ | [place], [place] | [place], [place] | | | | | e joint | [address] | [address] | | | | | disease) of | | Phone: | | | | | knee Knee | | [phone] | | | | | pain Major | | Fax: | | | | | depressive | | [phone] | | | | | disorder, | [...] Description | +--------+---------+ + + + | / | Office | [facility] at [facility] | Lukasz Charles, | Major Depressive | | 2007 | Visit | [address] | PhD [address] | Disorder, Recurrent | | | | Mailcode: [facility] | [place], [place] | Episode, Moderate | | | | [place] for [facility] | [address] | ([facility]); LBP (Low Back | | | | and Healing, | [phone] | Pain); Fibromyalgia | | | | | | syndrome 729.1; | | | | Floor [place], [place] | | Adjustment Disorder | | | | [address] | | with Anxiety; | | | | [phone] | | Bilateral Knee Pain; | | | | | | Other Pain | | | | | [...] this encounter Progress Notes Lukasz Charles - 08/13/2007 9:01 AM PSTPROGRESS NOTE: Belinda Meehan is a 47 y.o. female with head, abdominal, back, and leg pain. She reporte d improvement since her last visit. She had pneumonia but is doing better now. She has bee n more assertive with her health care and is more satisfied. She described some episodes of intense abdominal pain. She usually curls up in pain and cries. We discussed using relaxa tion techniques, breathing, trying to stretch out. She admitted that she has not been using those skills. She reported that she is planning another knee replacement in a couple month s. She is doing well with her left knee replacement. She has had ongoing depression but sh jennifer has been doing some creative work (quilting) and some reading. Ms. Meehan has ongoing depression and frustration. She is not suicidal. She is doing jeni ewhat better but needs to remember to use self-management skills during intense pain episode s. Diagnosis: [place] I: 1. (296.32) Major depressive disorder, recurrent, moderate. 2. (309.24) Adjustment disorder with anxiety. 3. 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 [place] II: Deferred [place] III: abdominal pain, migraine headache, low back pain. [place] IV: low finances Nov[place] V: GAF 55-60 Plan: return with next medical follow-up appointment. Check mood, knee surgery, relaxatio n, activity, distraction. Continue cognitive/behavioral therapy. Total time spent with patient was approximately 45 minutes. LUKASZ CHARLES [facility] [address] [facility], 4th [place] [address] documented in this encount er Plan of Treatment + + +--------+ + + | Name | Type | Priori | Associated Diagnoses | Order Schedule | | | | ty | | | + + +--------+ + + | [place] PSYCHOTHERPY, | Procedures | Routin | Major Depressive | Ordered: 08/13/2007 | | OFFICE (83-57) | | e | Disorder, Recurrent | | | | | | Episode, Moderate | | | | | | ([facility]) LBP (Low Back | | | | | | Pain) Fibromyalgia | | | | | | syndrome 729.1 | | | | | | Adjustment Disorder | | | | | | with Anxiety | | | | | | Bilateral Knee Pain | | | | | | Other Pain | | | | | [...] pain) Lumbago | + + | Fibromyalgia syndrome 729.1 Mylagia and myositis, unspecified | + + | Adjustment disorder with anxiety | + + | Bilateral Knee Pain Pain in joint, lower leg | + + | Other pain disorders related to psychological factors | + + documented in this encounter"
--- OUTSIDE RECORDS SUMMARY | ~2019-10-16 | XMS | Encounter Summary ---
Demographics + + + | Address | [address] | | | [place] [address] | + + + | Home Phone [...] Team Providers + +------+ + | Care Fence Post Cutter Name | Role | Phone | [...] | Visit | [facility] [address] | MAMMALOGIST | syndrome 729.1 | | | | [address] | | (Primary Dx); | | | | Physician's | | Fibromyalgia | | | | [address], [address]th Floor | | | | | | [place], [place] | | | | | | [address] | | | | | | [phone] | | | +--------+---------+ + + + [...] Placed This Encounter GEODON 20 MG CAP documente d in this encounter Plan of Treatment + + +--------+ + + | Name | Type | Priori | Associated Diagnoses | Order Schedule | | | | ty | | | + + +--------+ + + | [place] INJECT TRIGGER | Procedures | Routin | [...]
--- OUTSIDE RECORDS SUMMARY | ~2019-10-16 | XMS | Encounter Summary ---
Demographics + + + | Address | [address] | | | [place] [address] | + + + | Home Phone [...] Providers + +------+ + | Care Personnel Associate Name | Role | Phone | [...] as of this encounter Progress Notes Interface, Fiber Optics Supervisor In - 01/12/2005 8:09 AM PDTClinic Date: [...] months. Chris Padgett M.D. ROSA / SHARIF [id number] / [id number] / [id number] / Tdocumented in this encounter Plan of Treatment Not on filedocumented as of this encounter Visit Diagnoses Not on filedocumented in this encounter"
--- OUTSIDE RECORDS SUMMARY | ~2019-10-16 | XMS | Encounter Summary ---
Demographics + + + | Address | [address] | | | [place] [address] | + + + | Home Phone [...] Team Providers + +------+ + | Care Detective Youth Bureau Name | Role | Phone | + +------+ + PCP | Unavailable | + +------+ + Encounter Details +--------+ + + + + | Date | Type | Department | Care Team | Description | +--------+ + + + + | 11/22/ | Results | | Other, Faculty | | | 2004 | Only | | [phone] | | +--------+ + + + + [...] + | Ordered by SYEDA MCKENZIE | [facility] | | | DEPARTMENT OF | | | PATHOLOGY | + + + + + + + + | Performing | Address | City/State/Zipcode | Phone Number | | Organization | | | | + + + + + | [facility] DEPARTMENT OF | [address] [facility] | [place] [address] | | | PATHOLOGY | [address] | | | + + + + + | [facility] DEPARTMENT OF | [address] | [place] [address] | | | PATHOLOGY | [address] [...] At | + + + | Ordered won MCKENZIE | [facility] | | | DEPARTMENT OF | | | PATHOLOGY | + + + + + + + + | Performing | Address | City/State/Zipcode | Phone Number | | Organization | | | | + + + + + | [facility] DEPARTMENT | [address] [facility] | [place] [address] | | | PATHOLOGY | [address] | | | + + + + + | [facility] | [address] [facility] | [place] [address] | | | PATHOLOGY | [address] [...] At | + + + | Ordered won MCKENZIE | [facility] | | | DEPARTMENT OF | | | PATHOLOGY | + + + + + + + + | Performing | Address | City/State/Zipcode | Phone Number | | Organization | | | | + + + + + | [facility] | [address] [facility] | [place] [address] | | | PATHOLOGY | [address] | | | + + + + + | [facility] | [address] [facility] | [place] [address] | | | PATHOLOGY | [address] [...] DEPARTMENT OF | [address] | [place] [address] | | | PATHOLOGY | [address] | | | + + + + + | [facility] DEPARTMENT OF | [address] | [place] [address] | | | PATHOLOGY | [address] [...] + + + | Ordered by SYEDA MCKENIZE | [facility] | | | DEPARTMENT OF | | | PATHOLOGY | + + + + + + + + | Performing | Address | City/State/Zipcode | Phone Number | | Organization | | | | + + + + + | [facility] DEPARTMENT OF | [address] | [place] [address] | | | PATHOLOGY | [address] | | | + + + + + | [facility] DEPARTMENT OF | [address] | [place] [address] | | | PATHOLOGY | [address] [...] At | + + + | Ordered won MCKENZIE | [facility] | | | DEPARTMENT OF | | | PATHOLOGY | + + + + + + + + | Performing | Address | City/State/Zipcode | Phone Number | | Organization | | | | + + + + + | [facility] DEPARTMENT | [address] | [place] [address] | | | PATHOLOGY | [address] | | | + + + + + | [facility] DEPARTMENT OF | [address] | [place] [address] | | | PATHOLOGY | [address] | | | + + + + + documented in this encounter Visit Diagnoses Not on filedocumented in this encounter"
--- OUTSIDE RECORDS SUMMARY | ~2019-10-16 | XMS | Encounter Summary ---
Demographics + + + | Address | [address] | | | [place] [address] | + + + | Home Phone [...] Team Providers + +------+ + | Care Resin Painter Name | Role | Phone | [...] | Pain | Diagnoses | Miracle, | [place], | | | | Management | LBP (low | NIHARIKA Jean | Lukasz Rhodes, PhD | | | | | back pain) | [address] | [address] | | | | | DJD | [address] | Ave | | | | | (degenerativ | [place], [place] | [place] | | | | | e joint | [address] | [address] | | | | | disease) of | | Phone: | | | | | knee Knee | | [phone] | | | | | pain Major | | Fax: | | | | | depressive | | [phone] | | | | | disorder, | [...] 11/23/ | Office | [facility] at [facility] | Lukasz Charles, | Major Depressive | | 2007 | Visit | [address] | PhD [address] | Disorder, Recurrent | | | | Mailcode: 15P | [place], [place] | Episode, Moderate | | | | [facility] for [facility] | [address] | ([facility]); LBP (Low Back | | | | and Healing, | [phone] | Pain); Bilateral | | | | | | Knee Pain; | | | | Floor [place], [place] | | Adjustment Disorder | | | | [address] | | with Anxiety | | | | [phone] | | | +--------+---------+ + + + [...] frustra tion by being less active. Diagnosis: [place] I: 1. (296.32) Major depressive disorder, recurrent, moderate. 2. (309.24) Adjustment disorder with anxiety. 3. 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 [place] II: Deferred [place] III: abdominal pain, migraine headache, low back pain. [place] IV: low finances [place] V: GAF 55-60 Plan: return with next medical follow-up appointment. Check mood, abdominal pain, relaxat ion, activity, distraction. Continue cognitive/behavioral therapy. Total time spent with patient was approximately 45 minutes. LUKASZ [facility] [address] [facility], [address] [place] [address] documented in this encount er Plan of [...]
--- OUTSIDE RECORDS SUMMARY | ~2019-10-16 | XMS | Encounter Summary ---
Demographics + + + | Address | [address] | | | [place] [address] | + + + | Home Phone [...] Team Providers + +------+ + | Care Salesperson Pianos And [employer]gans Name | Role | Phone | + [...] as of this encounter Progress Notes Interface, Logging Crew Foreman In - 01/12/2005 12:26 AM PDT [id number] [facility] Date: 07/25/2004 Clinic: Rheumatology [...] weight that she has lost. At the [employer], a study was presented [...] 6 months. Caitlin Rivera M.S., F.N.P. / [id number] / [id number] / [id number] / [id number] cc: Pedrito Gutierrez M.D. [address] [facility] [place] [address] Electronically signed by Caitlin Rivera 07-31-2004 12:02:37 PM documented i n this encounter Plan of Treatment Not on filedocumented as of this encounter Visit Diagnoses Not on filedocumented in this encounter"
--- OUTSIDE RECORDS SUMMARY | ~2019-10-16 | XMS | Encounter Summary ---
Demographics + + + | Address | [address] | | | [place] [address] | + + + | Home Phone [...] Providers + +------+ + | Care Project Safety Manager Name | Role | Phone [...] + + | 06/17/ | Telephone | [facility] | Alanis, | Referral | | 2019 | | MEDICINE [address] [place] [address] | MD [place] | | | | | [facility] | [address] [place] [address] | | | | | [place] [address] | [place] [address] | | | | | [phone] | [phone] | | | | | | | [...] | | | | | [place] [address] | | | | | | [phone] | | | | | | | | +--------+ + + + + | 12/20/ | Office | Audiology | Elisabet Munson MS | | 2019 | Visit | | [facility] [address] | | | | | | [address] [place] | | | | | | [place] [address] | | | | | | [phone] | | | | | | | | +--------+ + + + + | 12/20/ | Office | Otolaryngology | Ulysses Genao MD | | | 2020 | Visit | | [address] | | | | | | [address] [place], | | | | | | [place] [address] | | | | | | [phone] | | | | | | | | +--------+ + + + + documented as of this encounter Visit Diagnoses Not on filedocumented in this encounter"
--- OUTSIDE RECORDS SUMMARY | ~2019-10-16 | XMS | Encounter Summary ---
Demographics + + + | Address | [address] | | | [place] [address] | + + + | Home Phone [...] Team Providers + +------+ + | Care Locket Maker Name | Role | Phone | [...] pneumonia, | | | | Avjennifer Mailcode: [facility] | [address] | wants to get back on | | | | [facility] | [place], [place] | vitamins) | | | | and Healing, | [address] | | | | | [place] [address] [facility] | [phone] | | | | | Floor [place], [place] | | | | | | [address] | | | | | | [phone] | | | +--------+ + + + [...]
--- OUTSIDE RECORDS SUMMARY | ~2019-10-16 | XMS | Encounter Summary ---
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
--- OUTSIDE RECORDS SUMMARY | ~2019-10-16 | XMS | Encounter Summary ---
Demographics + + + | Address | [address] | | | [place] [address] | + + + | Home Phone [...] Providers + +------+ + | Care Application Integrator Name | Role | Phone | + +------+ + | Pedrito Carter MD | PCP | | + +------+ + Reason for Visit AUTH/CERT +--------+--------+ + + + + | Status | Reason | Specialty | Diagnoses / | Referred By | Referred To | | | | | Procedures | Contact | Contact | +--------+--------+ + + + + | Closed | | | | | [facility] | | | | | | | [facility] | | | | | | | [address] | | | | | | | [address] | | | | | | | [address] | | | | | | | [id number] | | | | | | | [place] | | | | | | | [facility] | | | | | | | [place], [place] | | | | | | | [address] | | | | | | | Phone: | | | | | | | [phone] | | | | | | | Fax: | | | | | | | [phone] | +--------+--------+ + + + + Encounter Details +--------+ + + + + | Date | Type | Department | Care Team | Description | +--------+ + + + + | 02/22/ | Hospital | [facility] [address] | [place]os, | | | 2008 | Encounter | [address] | | | | | | [id number] | | | | | | [place], | | | | | | [place] [address] | | | | | | [phone] | | | +--------+ + + + [...] + + + | Blood Pressure | 100/51 | 02/22/2009 10:45 AM | | | | | PDT | | + + + + + | Pulse | 73 | 02/22/2009 10:45 AM | | | | | PDT | | + + + + + | Temperature | 36.6 C (97.9 F) | 02/22/2009 9:53 AM | | | | | PDT | | + + + + + | Respiratory Rate | 16 | 02/22/2009 10:45 AM | | | | | PDT | | + + + + + | Oxygen Saturation | 97% | 02/22/2009 10:45 AM | | | | | PDT | | + + + + + | Inhaled Oxygen | - | - | | | Concentration | | | | + + + + + | Weight | 101.3 kg (223 lb 5.2 | 02/22/2009 6:00 AM | | | | oz) | PDT | | + + + + + | Height | 175.3 cm (5' 9") | 02/22/2009 6:00 AM | | | | | PDT | | + + + + + | Body Mass Index | 32.98 | 02/22/2009 6:00 AM | | | | | PDT | | + + + + + documented in this encounter Discharge Summaries Donna Clancy PA - 02/22/2009 9:59 AM PDT INPATIENT PROVIDER DISCHARGE Discharge Date: 02/22/2009 Service: Orthopedic Oncology You or your family member have been primarily hospitalized for: Surgery Principal Final Diagnosis: Open biopsy with curettage, allograft packing left scapula lesion Additional Diagnoses: none You or your family had the following procedures: Principal Procedure: Open biopsy with curettage, allograft packing left scapula lesion Additional Procedures: none Reason for Admission, Significant Findings, Treatment, and Complications Brief Hospital Course: Patient was admitted to [facility] short stay surgery. Patient was taken to the operating room f or above named procedure. Patient will be discharged to home once PACU criteria is met. Nguyễn de's weight bearing status upon discharge is non weight bearing left upper extremity. Nguyễn de will follow up in our orthopedic oncology clinic in 2 for wound check and discussion o f final pathology. Passive and active ROM in shoulder and elbow. Discharge Medications: START taking these medications oxycodone CR (OXYCONTIN) 40 mg Oral Tablet Sustained Release 12 hr Take 1 Tab by mouth every twelve hours. Qty: 40 Refills: 0 oxycodone, immediate release, 10 mg Oral Tablet Take 1-2 Tabs by mouth every three hours. Qty: 80 Refills: 0 senna-docusate (SENNA WITH DOCUSATE SODIUM) 8.6-50 mg Oral Tablet Take 2 Tabs by mouth two times daily. Qty: 60 Refills: 2 CONTINUE these medications which have NOT CHANGED aspirin chewable (BABY ASPIRIN) 81 mg Oral Tablet, Chewable 2 daily buPROPion XL (WELLBUTRIN XL) 300 mg Oral Tablet Sustained Release 24 hr take 1 tablet (300 mg) by oral route once daily CALCIUM 600 WITH VITAMIN D OR ( 400 unit of Vit D) 1 tab 4 x daily Cyanocobalamin 1,000 mcg/mL Injection Syringe 1 inj q month Docusate Sodium 100 mg Oral Tablet take 1 tablet (100 mg) by oral route once daily at bedtime as needed furosemide (LASIX) 40 mg Oral Tablet take 1 tablet (40 mg) by oral route once daily INDERAL LA 120 mg Oral Capsule,Sustained Action 24 hr Take 120 mg by mouth once daily at bedtime. levothyroxine 50 mcg Oral Tablet Take 1 Tab by mouth once daily. Qty: 30 Refills: 3 methocarbamol 750 mg Oral Tablet Take 1-2 Tabs by mouth three times daily. Multivitamin Oral Tablet 1 tab by mouth twice daily omeprazole magnesium (PRILOSEC OTC) 20 mg Oral Tablet, Delayed Release (E.C.) take 1 tablet by mouth twice daily oxycodone CR 40 mg Oral Tablet Sustained Release 12 hr Take 40 mg by mouth two times daily. OXYCODONE HCL (OXYCONTIN OR) Take by mouth. 10 mg (2 tablets) every 6 hours POTASSIUM CHLORIDE SR 20 MEQ TAB, PARTICLES/CRYSTALS take 1 tablet (20meq) by oral route once daily with food promethazine 25 mg Oral Tablet 1 tab by mouth as needed risedronate (ACTONEL) 35 mg Oral Tablet tablet Take 1 Tab by mouth every seven days. Qty: 12 Refills: 12 sucralfate (CARAFATE) 1 gram Oral Tablet Take 1 Tab by mouth before meals. Qty: 120 Refills: 1 VITAMIN C 500 MG CHEWABLE TAB four times a day Diet: regular Activity: No driving while taking narcotic pain medicine. Other restrictions include: No lifting with you left arm. Patient should wear her sling for comfort only. Please move you r shoulder and elbow as much as possible. Special Instructions: (Treatment, Equipment, Supplies, Dressings, LAB follow-up) Weigh daily: no Please leave surgical dressing on for 3 days. You may remove the dressing after 3 days and shower. Allow the water to run over the incision, but do not scrub the incision. You may re-dress the incision if you wish, but it does not have to be covered. No bathing or soakin g for 3-4 weeks. Call: Donna Clancy PA-C during regular business hours at or page the orthopedist weatherization administrator after regular business hours at [phone]. If you have any of the following: Difficulty breathing or unusual shortness of breath Excessive bleeding, drainage at the operative site Fevers, chills, increased pain that is not relieved by pain medications Persistent nausea or vomiting Follow Up Appointments: PCP: Pedrito CARTER When? Routine health care Orthopedic Oncology Clinic 4th Floor Physicians [place] 03/07/09 at 11:30am. If you have a ny scheduling conflicts with this appointment, please call our scheduling line at . Follow Up Tests: (Tests at [facility] must be entered into [facility]) none Condition On Discharge: stable Vital Signs at discharge as appropriate: BP: 132/63 mmHg (02/22/09 6:00 AM) Pulse: 66 (02/22/09 6:00 AM) Resp: 16 (02/22/09 6:00 AM) Wt - Scale: 101.3 kg (223 lb 5.2 oz) (02/22/09 6:00 AM ) Discharge Patient To: Home Does patient have a planned readmission: No Discharge Summary Completed?: Yes- Date 02/22/09 Discharging Provider: NGUYỄN LR Date Completed: 02/22/2009 Time Completed: 957 Discharging Attending: Hai Hoyos MDElectronically signed by NGUYỄN Lr 02/22/2009 9:59 AM PDTdocumented in this encounter Discharge Instructions Instructions Loni Kowalski RN - 02/22/2009 INPATIENT PROVIDER DISCHARGE AND INTERDISCIPLINARY INSTRUCTIONS Discharge Date: 02/22/2009 Service: Orthopedic Oncology You or your family member have been primarily hospitalized for: Surgery Principal Final Diagnosis: Open biopsy with curettage, allograft packing left scapula lesion Additional Diagnoses: none You or your family had the following procedures: Principal Procedure: Open biopsy with curettage, allograft packing left scapula lesion Additional Procedures: none Reason for Admission, Significant Findings, Treatment, and Complications Brief Hospital Course: Patient was admitted to [facility] short stay surgery. Patient was taken to the operating room f or above named procedure. Patient will be discharged to home once PACU criteria is met. Nguyễn de's weight bearing status upon discharge is weight bearing as tolerated left upper extre mity. Patient will follow up in our orthopedic oncology clinic in 2 for wound check and dis cussion of final pathology. Discharge Medications: START taking these medications oxycodone CR (OXYCONTIN) 40 mg Oral Tablet Sustained Release 12 hr Take 1 Tab by mouth every twelve hours. Qty: 40 Refills: 0 oxycodone, immediate release, 10 mg Oral Tablet Take 1-2 Tabs by mouth every three hours. Qty: 80 Refills: 0 senna-docusate (SENNA WITH DOCUSATE SODIUM) 8.6-50 mg Oral Tablet Take 2 Tabs by mouth two times daily. Qty: 60 Refills: 2 CONTINUE these medications which have NOT CHANGED aspirin chewable (BABY ASPIRIN) 81 mg Oral Tablet, Chewable 2 daily buPROPion XL (WELLBUTRIN XL) 300 mg Oral Tablet Sustained Release 24 hr take 1 tablet (300 mg) by oral route once daily CALCIUM 600 WITH VITAMIN D OR ( 400 unit of Vit D) 1 tab 4 x daily Cyanocobalamin 1,000 mcg/mL Injection Syringe 1 inj q month Docusate Sodium 100 mg Oral Tablet take 1 tablet (100 mg) by oral route once daily at bedtime as needed furosemide (LASIX) 40 mg Oral Tablet take 1 tablet (40 mg) by oral route once daily INDERAL LA 120 mg Oral Capsule,Sustained Action 24 hr Take 120 mg by mouth once daily at bedtime. levothyroxine 50 mcg Oral Tablet Take 1 Tab by mouth once daily. Qty: 30 Refills: 3 methocarbamol 750 mg Oral Tablet Take 1-2 Tabs by mouth three times daily. Multivitamin Oral Tablet 1 tab by mouth twice daily omeprazole magnesium (PRILOSEC OTC) 20 mg Oral Tablet, Delayed Release (E.C.) take 1 tablet by mouth twice daily oxycodone CR 40 mg Oral Tablet Sustained Release 12 hr Take 40 mg by mouth two times daily. OXYCODONE HCL (OXYCONTIN OR) Take by mouth. 10 mg (2 tablets) every 6 hours POTASSIUM CHLORIDE SR 20 MEQ TAB, PARTICLES/CRYSTALS take 1 tablet (20meq) by oral route once daily with food promethazine 25 mg Oral Tablet 1 tab by mouth as needed risedronate (ACTONEL) 35 mg Oral Tablet tablet Take 1 Tab by mouth every seven days. Qty: 12 Refills: 12 sucralfate (CARAFATE) 1 gram Oral Tablet Take 1 Tab by mouth before meals. Qty: 120 Refills: 1 VITAMIN C 500 MG CHEWABLE TAB four times a day Diet: regular Activity: No driving while taking narcotic pain medicine. Other restrictions include: Randa brown should wear her sling for comfort only. Please move your shoulder and elbow as much as possible. Special Instructions: (Treatment, Equipment, Supplies, Dressings, LAB follow-up) Weigh daily: no Please leave surgical dressing on for 3 days. You may remove the dressing after 3 days and shower. Allow the water to run over the incision, but do not scrub the incision. You may re-dress the incision if you wish, but it does not have to be covered. No bathing or soakin g for 3-4 weeks. Call: Donna Clancy PA-C during regular business hours at or page the orthopedist weatherization administrator after regular business hours at [phone]. If you have any of the following: Difficulty breathing or unusual shortness of breath Excessive bleeding, drainage at the operative site Fevers, chills, increased pain that is not relieved by pain medications Persistent nausea or vomiting Follow Up Appointments: PCP: Pedrito CARTER When? Routine health care Orthopedic Oncology Clinic 4th Floor Physicians [place] 03/07/09 at 11:30am. If you have a ny scheduling conflicts with this appointment, please call our scheduling line at . Follow Up Tests: (Tests at [facility] must be entered into [employer]) none Condition On Discharge: stable Vital Signs at discharge as appropriate: BP: 132/63 mmHg (02/22/09 6:00 AM) Pulse: 66 (02/22/09 6:00 AM) Resp: 16 (02/22/09 6:00 AM) Wt - Scale: 101.3 kg (223 lb 5.2 oz) (02/22/09 6:00 AM ) Discharge Patient To: Home Does patient have a planned readmission: No Discharge Summary Completed?: Yes- Date 02/22/09 Discharging Provider: NGUYỄN LR Date Completed: 02/22/2009 Time Completed: 957 Discharging Attending: Hai Hoyos MD INPATIENT NURSE ORDER FOR DISCHARGE AND INTERDISCIPLINARY INSTRUCTIONS DISCHARGE DATE: 02/22/2009 PATIENT EDUCATION: Patient given the following printed education materials Review with patient/family: Understanding of disease/injury/surgical repair Yes Signs/symptoms that they should report Yes Understanding of medications and side effects Yes Activity and diet instructions Follow-up appointments Yes Any concerns/fears Yes Smoking Cessation Counseling/Information was given on admission. Additional Instructions: (ex: dYesaily weights, wound care, tube feeding, trach care, CBG m onitoring etc.) Personal Effects/Medications: Sent home with patient Discharged Via: Wheelchair Mode of Transportation: Car Accompanied by: Family/Responsible Democrat Discharge Nurse: LONI KOWALSKI RN Date: 02/22/2009 Discharge Time: 11:28 AM documented in this encounter Medications at Time [...] | + +--------+ + + + | PROCEDURE NOTE | Routin | 07/20/2015 | | Results for this | | | e | 12:25 PM | | procedure are in the | | | | PST | | results section. | + +--------+ + + + | ANESTHESIA/SEDATION | | 02/22/2009 | | Results for this | | | | 1:00 PM | | procedure are in the | | | | PDT | | results section. | + +--------+ + + + | ANESTHESIA/SEDATION | | 02/22/2009 | | Results for this | | | | 1:00 PM | | procedure are in the | | | | PDT | | results section. | + +--------+ + + + | ANESTHESIA/SEDATION | | 02/22/2009 | | Results for this | | | | 1:00 PM | | procedure are in the | | | | PDT | | results section. | + +--------+ + + + | ANESTHESIA/SEDATION | | 02/22/2009 | | Results for this | | | | 1:00 PM | | procedure are in the | | | | PDT | | results section. | + +--------+ + + + | PATHOLOGY | | 02/22/2009 | | Results for this | | | | 1:00 PM | | procedure are in the | | | | PDT | | results section. | + +--------+ + + + | FUNGUS PRELIMINARY 1 | Routin | 02/22/2009 | | Results for this | | | e | 8:59 AM | | procedure are in the | | | | PDT | | results section. | + +--------+ + + + | AFB PRELIM 1 | Routin | 02/22/2009 | | Results for this | | | e | 8:59 AM | | procedure are in the | | | | PDT | | results section. | + +--------+ + + + | CULTURE, TISSUE | Routin | 02/22/2009 | | Results for this | | | e | 8:59 AM | | procedure are in the | | | | PDT | | results section. | + +--------+ + + + | FUNGAL SMEAR ONLY | Routin | 02/22/2009 | | Results for this | | | e | 8:59 AM | | procedure are in the | | | | PDT | | results section. | + +--------+ + + + | ACID FAST BACILLI, | Routin | 02/22/2009 | | Results for this | | SMEAR ONLY | e | 8:59 AM | | procedure are in the | | | | PDT | | results section. | + +--------+ + + + | CULTURE, FUNGAL & | Routin | 02/22/2009 | | Results for this | | SMEAR | e | 8:59 AM | | procedure are in the | | | | PDT | | results section. | + +--------+ + + + | CULTURE, AFB (ALL | Routin | 02/22/2009 | | Results for this | | SPEC TYPES EXCEPT | e | 8:59 AM | | procedure are in the | | BLOOD) | | PDT | | results section. | + +--------+ + + + | ANESTHESIA/SEDATION | | 02/22/2009 | | Results for this | | | | 12:00 AM | | procedure are in the | | | | PDT | | results section. | + +--------+ + + + | OPERATION RECORD | | 02/22/2009 | | Results for this | | | | 12:00 AM | | procedure are in the | | | | PDT | | results section. | + +--------+ + + + | SURGICAL PATHOLOGY | Routin | 02/22/2009 | | Results for this | | | e | | | procedure are in the | | | | | | results section. | + +--------+ + + + documented in this encounter Results PROCEDURE NOTE (07/20/2015 12:25 PM PST)ANESTHESIA/SEDATION (02/22/2009 1:00 PM PDT) + + + | Narrative | Performed At | + + + | | | + + + + + | Procedure Note | + + | Edwige Faculty - 02/22/2009 1:00 PM PDT | | | + + ANESTHESIA/SEDATION (02/22/2009 1:00 PM PDT) + + + | Narrative | Performed At | + + + | | | + + + + + | Procedure Note | + + | Vilma Gibbons - 02/22/2009 1:00 PM PDT | | | + + ANESTHESIA/SEDATION (02/22/2009 1:00 PM PDT) + + + | Narrative | Performed At | + + + | | | + + + + + | Procedure Note | + + | Vilma Gibbons - 02/22/2009 1:00 PM PDT | | | + + ANESTHESIA/SEDATION (02/22/2009 1:00 PM PDT) + + + | Narrative | Performed At | + + + | | | + + + + + | Procedure Note | + + | Edwige, Faculty - 02/22/2009 1:00 PM PDT | | | + + PATHOLOGY (02/22/2009 1:00 PM PDT) + + + | Narrative | Performed At | + + + | | | + + + + + | Procedure Note | + + | Other, Faculty - 02/22/2009 1:00 PM PDT | | | + + FUNGUS PRELIMINARY 1 (02/22/2009 8:59 AM PDT) + + + + + + | Component | Value | Ref Range | Performed | Pathologist | | | | | At | Signature | + + + + + + | PRELIM | Fungus NOT detected at 1 | | | | | FUNGAL ISOL | week. | | | | + + + + + + + + | Specimen | + + | | + + + + + + + | Performing | Address | City/State/Zipcode | Phone Number | | Organization | | | | + + + + + | [facility] | [address] | [place] [address] | | | PATHOLOGY | [address] | | | + + + + + FUNGAL SMEAR ONLY (02/22/2009 8:59 AM PDT) + + + + + + | Component | Value | Ref Range | Performed | Pathologist | | | | | At | Signature | + + + + + + | SOURCE BODY | 1) left scapular lesion, | | | | | SITE | surgical Surgical | | | | + + + + + + | CALCOFLUOR | No fungal elements seen | | | | | WHITE STAIN | | | | | | ONLY | | | | | + + + + + + + + | Specimen | + + | | + + + + + + + | Performing | Address | City/State/Zipcode | Phone Number | | Organization | | | | + + + + + | [facility] | [address] | [place] [address] | | | PATHOLOGY | [address] | | | + + + + + CULTURE, FUNGAL & SMEAR (02/22/2009 8:59 AM PDT) + + + + + + | Component | Value | Ref Range | Performed | Pathologist | | | | | At | Signature | + + + + + + | SOURCE BODY | 1) left scapular lesion, | | | | | SITE | surgical Surgical | | | | + + + + + + | CULTURE | Fungus Culture | | | | | RESULT | Culture Source | | | | | | ....: 1) left | | | | | | scapular lesion, | | | | | | surgical Surgical | | | | | | Smear..............: | | | | | | No fungal elements seen | | | | | | Preliminary | | | | | | 1......: Fungus NOT | | | | | | detected at 1 week. [facility] | | | | | | Final Report: Fungus | | | | | | NOT isolated after 3 | | | | | | weeks.Comment: Test | | | | | | performed at [facility] | | | | | | [facility] | | | | | | Laboratory. | | | | + + + + + + + + | Specimen | + + | | + + + + + + + | Performing | Address | City/State/Zipcode | Phone Number | | Organization | | | | + + + + + | [facility] | [address] | [place] [address] | | | PATHOLOGY | [address] | | | + + + + + AFB PRELIM 1 (02/22/2009 8:59 AM PDT) + + + + + + | Component | Value | Ref Range | Performed | Pathologist | | | | | At | Signature | + + + + + + | PRELIMINARY | Acid Fast Bacilli NOT | | | | | 1 | detected at 4 weeks. | | | | + + + + + + + + | Specimen | + + | | + + + + + + + | Performing | Address | City/State/Zipcode | Phone Number | | Organization | | | | + + + + + | [facility] | [address] | [place] [address] | | | PATHOLOGY | [address] | | | + + + + + CULTURE, AFB (ALL SPECIMEN TYPES) (02/22/2009 8:59 AM PDT) + + + + + + | Component | Value | Ref Range | Performed | Pathologist | | | | | At | Signature | + + + + + + | SOURCE BODY | 1) left scapular lesion, | | | | | SITE | surgical Surgical | | | | + + + + + + | CULTURE | Acid Fast Bacilli | | | | | RESULT | Culture | | | | | | Source.............: | | | | | | 1) left scapular lesion, | | | | | | surgical Surgical [facility] | | | | | | FA Stain...........: | | | | | | AFB NOT detected. | | | | | | Preliminary 1......: | | | | | | Acid Fast Bacilli NOT | | | | | | detected at 4 weeks. | | | | | | Final Report.......: | | | | | | Acid Fast Bacilli | | | | | | NOT detected at 6 | | | | | | weeks.Comment: Test | | | | | | performed at [facility] | | | | | | [facility] | | | | | | Laboratory | | | | + + + + + + + + | Specimen | + + | | + + + + + + + | Performing | Address | City/State/Zipcode | Phone Number | | Organization | | | | + + + + + | [facility] | [address] | [place] [address] | | | PATHOLOGY | [address] | | | + + + + + ACID FAST BACILLI, SMEAR ONLY (02/22/2009 8:59 AM PDT) + + + + + + | Component | Value | Ref Range | Performed | Pathologist | | | | | At | Signature | + + + + + + | SOURCE BODY | 1) left scapular lesion, | | | | | SITE | surgical Surgical | | | | + + + + + + | FLUOROCHROM | AFB NOT detected. | | | | | E STAIN | | | | | + + + + + + + + | Specimen | + + | | + + + + + + + | Performing | Address | City/State/Zipcode | Phone Number | | Organization | | | | + + + + + | [facility] | [address] | [place] [address] | | | PATHOLOGY | [address] | | | + + + + + CULTURE, TISSUE (02/22/2009 8:59 AM PDT) + + + + + + | Component | Value | Ref Range | Performed | Pathologist | | | | | At | Signature | + + + + + + | SOURCE BODY | 1) left scapular lesion, | | | | | SITE | surgical R/O Brucella, | | | | | | [facility] | | | | + + + + + + | CULTURE | Tissue Culture | | | | | RESULT | | | | | | | Source...............: | | | | | | 1) left scapular lesion, | | | | | | surgical R/OBrucella, | | | | | | | | | | | | | | | | | | Nocardia Surgical [facility] | | | | | | Gram Stain...........: | | | | | | No Squamous epithelial | | | | | | cells | | | | | | | | | | | | No PMN's | | | | | | | | | | | | No organisms seen. | | | | | | Culture: | | | | | | Preliminary Report: No | | | | | | growth after 3 days. | | | | | | No Brucella | | | | | | isolated No | | | | | | anaerobes isolated | | | | | | Final Report | | | | | | Resulted: 02/28/09 | | | | | | [facility] ([facility] | | | | | | Way Lab) | | | | | | [facility] | | | | | | [address] [place] | | | | | [address] | | | | | | [place] [address] | | | | + + + + + + + + | Specimen | + + | | + + + + + + + | Performing | Address | City/State/Zipcode | Phone Number | | Organization | | | | + + + + + | [facility] | [address] | [place] [address] | | | PATHOLOGY | [address] | | | + + + + + ANESTHESIA/SEDATION (02/22/2009 12:00 AM PDT) + + + | Narrative | Performed At | + + + | | | + + + + + | Procedure Note | + + | Edwige Faculty - 02/22/2009 12:00 AM PDT | | | + + OPERATION RECORD (02/22/2009 12:00 AM PDT) + + + | Narrative | Performed At | + + + | [id number] | | | [id number] | | | [place] [id number] | | | Date: 02/22/2009 Attending Surgeon: | | | Hai Hoyos MD Dynamometer Mechanic(s): | | | Shantel Whipple Preoperative | | | Diagnosis(es): Left symptomatic scapula lesion. Postoperative | | | Diagnosis(es): Left symptomatic scapula lesion. Procedures | | | Performed: 1. Curettage and bone grafting of the left scapular | | | lesion. 2. Open biopsy, left scapular lesion. | | | Donna Clancy served as my construction administrative assistant because no other qualified | | | help was available. Anesthesia: General plus local. | | | EBL: Minimal. Complications: None. Specimens: Left | | | scapular lesion for frozen and permanent section as well as | | | cultures. Implants: 1 cc DBX. 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 Drains: None. | | | Disposition: The patient was successfully awoken and transferred to | | | PACU in stable condition. Postoperative Plan: The patient | | | to be weightbearing as tolerated about the left upper extremity | | | without restrictions. She is to be discharged home for the PACU | | | today and follow up with me in 2 weeks for wound check and to review | | | final pathology. She may remove her dressing in 2 days. She may | | | shower. She is not to submerge the incision. Indications: | | | Ms. Meehan is a 49-year-old woman who presented to me with | | | complaints of significant pain about the posterior aspect of the left | | | shoulder at the area of the scapula. The patient was discretely | | | tender over this area. Radiographic imaging demonstrated a lesion | | | within the scapular spine. This was reviewed with the | | | radiologist, and this was felt to be too large to be amenable to | | | radiofrequency ablation. Therefore, my recommendation is to | | | proceed with open biopsy, curettage, and bone grafting if this was | | | found to be consistent with a benign lesion. All the risks and | | | benefits of this procedure were explained to the patient. All | | | questions were answered and informed consent was obtained. | | | Procedure: The patient came to the operating room on 02/22/09. In | | | the preoperative holding area, the patient was met and the | | | operative site, which was the left upper extremity, was then signed | | | by me. The patient was then transferred to the operative room | | | suite, placed on the operating table in supine position, and an | | | airway was established. At this point, she was then rolled into | | | the lateral decubitus position with the left side up. An axillary | | | roll was then placed in the ideal position. The down leg was then | | | well padded. At this point, the left upper extremity was then | | | prepped and draped in the usual sterile fashion. A timeout was then | | | taken to verify the patient, site, and procedure. Preoperative | | | antibiotics were not administered because I did not want to | | | compromise my intraoperative cultures. Vancomycin was | | | administered after cultures were obtained. Open biopsy of the | | | left scapular lesion: At this point, I then outlined the scapular | | | spine about the posterior aspect of the scapula. I then used a | | | #10 blade in order to incise down to the dermis and subcutaneous | | | tissues until I reached the subcutaneous border of the scapular | | | spine. I then flushed the periosteum directly overlying the | | | scapular spine. This was then dissected proximally and distally, | | | which gave me direct visualization about the scapular spine. I | | | then used a TPS shiela in order to perform my cortical perforation at | | | the level of this lesion, which was previously visualized on the | | | preoperative CT scan. At this point, once I created a cortical | | | perforation over the lesion, I then used curettes in order to | | | obtain intralesional tissue from this lesion. At this point, this | | | tissue was then sent to Pathology as a frozen section. I also | | | obtained a portion of tissue and sent it as cultures, which | | | included aerobic, anaerobic, AFB, fungal, Nocardia, and Brucella. | | | At this point, I then awaited my frozen section results. 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 There was no | | | evidence of malignancy. I therefore proceeded with curettage and | | | bone grafting. Curettaging and bone grafting of the left | | | scapular lesion: At this point, I then performed an extended | | | intralesional curettage. This was done by first taking the TPS | | | shiela and then creating a large cortical perforation about the | | | posterior aspect of the scapular spine, so I was able to visualize | | | the entirety of the lesion. Once this was done, I then used a | | | curette in order to curettage intralesional, may be entirety of the | | | lesion. I then again used a TPS shiela in order to meticulously | | | extend my intralesional curettage circumferentially around the | | | entirety of the lesion. Once this was done, the wound was then | | | copiously irrigated. Meticulous hemostasis was then obtained. I | | | then placed 1 cc of DBX into the scapular lesion in order to fill | | | the void. At this point, I then proceeded with my closure. This | | | was done by first 0 Vicryls to reapproximate the periosteum and | | | muscular fat and perimuscular fascia. I then used 2-0 Vicryl for | | | the superficial soft tissues and 4-0 subcuticular Caprosyn and | | | Dermabond for the skin. Local anesthetic was applied followed by | | | sterile dressing. The patient was then successfully awoken and | | | transferred to PACU in stable condition. Postoperative plan is as | | | aforementioned. MD ARTIS Wei / SHARIF [id number] / | | | [id number] / [id number] / | | + + + + + | Procedure Note | + + | Hai Hoyos MD - 02/22/2009 12:00 AM PDT [id number] | | [id number] GEOVANNI Barnes | | [id number] Date: 02/22/2009 Attending Surgeon: Hai | | MD Romain Dynamometer Mechanic(s): Raj Whipple. Preoperative | | Diagnosis(es):Left symptomatic scapula lesion. Postoperative Diagnosis(es):Left | | symptomatic scapula lesion. Procedures Performed:1. Curettage and bone grafting of | | the left scapular lesion.2. Open biopsy, left scapular lesion. Donna Clancy | | served as my construction administrative assistant because no other qualified help wasavailable. Anesthesia:General | | plus local. EBL:Minimal. Complications:None. Specimens:Left scapular lesion for | | frozen and permanent section as well as cultures. Implants:1 cc DBX. Findings:Frozen | | consistent with an osteoblastoma. Drains:None. Disposition:The patient was | | successfully awoken and transferred to PACU in stablecondition. Postoperative Plan:The | | patient to be weightbearing as tolerated about the left upper extremitywithout | | restrictions. She is to be discharged home for the PACU today andfollow up with me in 2 | | weeks for wound check and to review final pathology.She may remove her dressing in 2 | | days. She may shower. She is not tosubmerge the incision. Indications:Ms. Meehan is | | a 49-year-old woman who presented to me with complaints ofsignificant pain about the | | posterior aspect of the left shoulder at thearea of the scapula. The patient was | | discretely tender over this area.Radiographic imaging demonstrated a lesion within the | | scapular spine. Thiswas reviewed with the radiologist, and this was felt to be too | | large to beamenable to radiofrequency ablation. Therefore, my recommendation is | | toproceed with open biopsy, curettage, and bone grafting if this was found jules | | consistent with a benign lesion. All the risks and benefits of thisprocedure were | | explained to the patient. All questions were answered andinformed consent was obtained. | | Procedure:The patient came to the operating room on 02/22/09. In the | | preoperativeholding area, the patient was met and the operative site, which was theleft | | upper extremity, was then signed by me. The patient was thentransferred to the | | operative room suite, placed on the operating table insupine position, and an airway was | | established. At this point, she wasthen rolled into the lateral decubitus position | | with the left side up. Anaxillary roll was then placed in the ideal position. The down | | leg was thenwell padded. At this point, the left upper extremity was then prepped | | anddraped in the usual sterile fashion. A timeout was then taken to verifythe patient, | | site, and procedure. Preoperative antibiotics were notadministered because I did not | | want to compromise my intraoperativecultures. Vancomycin was administered after | | cultures were obtained. Open biopsy of the left scapular lesion: At this point, I then | | outlined thescapular spine about the posterior aspect of the scapula. I then used a#10 | | blade in order to incise down to the dermis and subcutaneous tissuesuntil I reached the | | subcutaneous border of the scapular spine. I thenflushed the periosteum directly | | overlying the scapular spine. This wasthen dissected proximally and distally, which | | gave me direct visualizationabout the scapular spine. I then used a TPS shiela in order | | to perform mycortical perforation at the level of this lesion, which was | | previouslyvisualized on the preoperative CT scan. At this point, once I created | | acortical perforation over the lesion, I then used curettes in order toobtain | | intralesional tissue from this lesion. At this point, this tissuewas then sent to | | Pathology as a frozen section. I also obtained a portionof tissue and sent it as | | cultures, which included aerobic, anaerobic, AFB,fungal, Nocardia, and Brucella. At | | this point, I then awaited my frozensection results. This was found to be consistent | | with osteoblastoma.There was no evidence of malignancy. I therefore proceeded with | | curettageand bone grafting. Curettaging and bone grafting of the left scapular lesion: | | At this point, Jesse performed an extended intralesional curettage. This was done by | | firsttaking the TPS shiela and then creating a large cortical perforation aboutthe | | posterior aspect of the scapular spine, so I was able to visualize theentirety of the | | lesion. Once this was done, I then used a curette in orderto curettage intralesional, | | may be entirety of the lesion. I then againused a TPS shiela in order to meticulously | | extend my intralesional curettagecircumferentially around the entirety of the lesion. | | Once this was done,the wound was then copiously irrigated. Meticulous hemostasis was | | thenobtained. I then placed 1 cc of DBX into the scapular lesion in order tofill the | | void. At this point, I then proceeded with my closure. This wasdone by first 0 Vicryls | | to reapproximate the periosteum and muscular fatand perimuscular fascia. I then used | | 2-0 Vicryl for the superficial softtissues and 4-0 subcuticular Caprosyn and Dermabond | | for the skin. Localanesthetic was applied followed by sterile dressing. The patient | | was thensuccessfully awoken and transferred to PACU in stable condition.Postoperative | | plan is as aforementioned. CHARU Wei / [id number] / [id number] / [id number] /D: | | 02/22/2009T: 02/22/2009 | | | |Postoperative Plan: | |The patient to be weightbearing as tolerated about the left upper extremity | |without restrictions. She is to be discharged home for the PACU today and | |follow up with me in 2 weeks for wound check and to review final pathology. | |She may remove her dressing in 2 days. She may shower. She is not to | |submerge the incision. | | | | | |Indications: | |Ms. Meehan is a 49-year-old woman who presented to me with complaints of | |significant pain about the posterior aspect of the left shoulder at the | |area of the scapula. The patient was discretely tender over this area. | |Radiographic imaging demonstrated a lesion within the scapular spine. This | |was reviewed with the radiologist, and this was felt to be too large to be | |amenable to radiofrequency ablation. Therefore, my recommendation is to | |proceed with open biopsy, curettage, and bone grafting if this was found to | |be consistent with a benign lesion. All the risks and benefits of this | |procedure were explained to the patient. All questions were answered and | |informed consent was obtained. | | | | | |Procedure: | |The patient came to the operating room on 02/22/09. In the preoperative | |holding area, the patient was met and the operative site, which was the | |left upper extremity, was then signed by me. The patient was then | |transferred to the operative room suite, placed on the operating table in | |supine position, and an airway was established. At this point, she was | |then rolled into the lateral decubitus position with the left side up. An | |axillary roll was then placed in the ideal position. The down leg was then | |well padded. At this point, the left upper extremity was then prepped and | |draped in the usual sterile fashion. A timeout was then taken to verify | |the patient, site, and procedure. Preoperative antibiotics were not | |administered because I did not want to compromise my intraoperative | |cultures. Vancomycin was administered after cultures were obtained. | | | | | |Open biopsy of the left scapular lesion: At this point, I then outlined the | |scapular spine about the posterior aspect of the scapula. I then used a | |#10 blade in order to incise down to the dermis and subcutaneous tissues | |until I reached the subcutaneous border of the scapular spine. I then | |flushed the periosteum directly overlying the scapular spine. This was | |then dissected proximally and distally, which gave me direct visualization | |about the scapular spine. I then used a TPS shiela in order to perform my | |cortical perforation at the level of this lesion, which was previously | |visualized on the preoperative CT scan. At this point, once I created a | |cortical perforation over the lesion, I then used curettes in order to | |obtain intralesional tissue from this lesion. At this point, this tissue | |was then sent to Pathology as a frozen section. I also obtained a portion | |of tissue and sent it as cultures, which included aerobic, anaerobic, AFB, | |fungal, Nocardia, and Brucella. At this point, I then awaited my frozen | |section results. This was found to be consistent with osteoblastoma. | |There was no evidence of malignancy. I therefore proceeded with curettage | |and bone grafting. | | | | | |Curettaging and bone grafting of the left scapular lesion: At this point, I | |then performed an extended intralesional curettage. This was done by first | |taking the TPS shiela and then creating a large cortical perforation about | |the posterior aspect of the scapular spine, so I was able to visualize the | |entirety of the lesion. Once this was done, I then used a curette in order | |to curettage intralesional, may be entirety of the lesion. I then again | |used a TPS shiela in order to meticulously extend my intralesional curettage | |circumferentially around the entirety of the lesion. Once this was done, | |the wound was then copiously irrigated. Meticulous hemostasis was then | |obtained. I then placed 1 cc of DBX into the scapular lesion in order to | |fill the void. At this point, I then proceeded with my closure. This was | |done by first 0 Vicryls to reapproximate the periosteum and muscular fat | |and perimuscular fascia. I then used 2-0 Vicryl for the superficial soft | |tissues and 4-0 subcuticular Caprosyn and Dermabond for the skin. Local | |anesthetic was applied followed by sterile dressing. The patient was then | |successfully awoken and transferred to PACU in stable condition. | |Postoperative plan is as aforementioned. 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 | | | | | | Case seen by:Tiesha Gonzáles | | | | | | Joanna Brown/Surgical | | | | | | Pathology FellowAtiya | | | | | | Kendall, | | | | | | M.DYudy/PathologistT:02/26/ | | | | | | 09/rdl | | | | | | Frozen Section | | | | | | Diagnosis:Left scapular | | | | | | lesion (specimen B): | | | | | | - Benign bone-forming | | | | | | neoplasm Frozen | | | | | | section diagnosis | | | | | | confirmed by: Jatinder Caballero | | | | | | Joanna Mccarthy/Resident | | | | | | Demetrice Argueta, | | | | | | MNajma/Pathologist | | | | | | Clinical History:The | | | | | | patient is a 49-year-old | | | | | | female. Suspect | | | | | | osteoblastoma. | | | | | | Gross | | | | | | Description:Received are | | | | | | two specimens fresh in | | | | | | containers labeled with | | | | | | the patient'sname | | | | | | (initials BM) and: | | | | | | A: Left scapular | | | | | | lesion: Received are | | | | | | multiple irregular, | | | | | | firm, heavilycauterized | | | | | | red bone measuring 3.2 x | | | | | | 2.8 x 0.6 cm in | | | | | | aggregate. The | | | | | | entirespecimen is | | | | | | submitted. B: | | | | | | Left scapular lesion | | | | | | (FS): Received are | | | | | | multiple focally | | | | | | firm,hemorrhagic purple | | | | | | fragments of bone | | | | | | measuring 1.2 x 0.8 x | | | | | | 0.4 cm inaggregate. | | | | | | The frozen section | | | | | | residue consists of the | | | | | | entire specimenwhich is | | | | | | submitted in toto. | | | | | | Cassette Index:A: | | | | | | Left scapular | | | | | | lesion:A1, | | | | | | decalcification | | | | | | performedB: Left | | | | | | scapular lesion (FS):B1, | | | | | | frozen section residue, | | | | | | decalcification | | | | | | performedJKK/JHONATHAN/rdl | | | | | | My electronic | | | | | | signature indicates that | | | | | | I have personally | | | | | | reviewed alldiagnostic | | | | | | slides, the gross and/or | | | | | | microscopic portion of | | | | | | thisreport and | | | | | | formulated the final | | | | | | diagnosis. | | | | | | Rendering Diagnostician: | | | | | | Yasmin Argueta | | | | | | Luis Ai | | | | | | mary carmen Signed 02/28/2009 | | | | + + + + + + + + | Specimen | + + | Other | + + + + + + + | Performing | Address | City/State/Zipcode | Phone Number | | Organization | | | | + + + + + | [facility] DEPARTMENT OF | [address] | [place] [address] | | | PATHOLOGY | [address] | | | + + + + + | [facility] DEPARTMENT OF | [facility] | [place] [address] | | | PATHOLOGY | [address] [...] | fentanyl (aka SUBLIMAZE) | Given | 02/23/20 | 100 mcg | | | | injection 1 dose, Starting Ginna | | 09 10:15 | | | | | 02/22/09 at 1009, Until Ginna | | AM PDT | | | | | 02/22/09 at 1015 | | | | | | + +--------+ +---------+------+------+ +---+---+ | | | +---+---+ + +-------+ +-------+---+---+ | oxycodone (aka ROXICODONE) | Given | 02/23/20 | 10 mg | | | | liquid 1 dose, Starting Ginna | | 09 11:45 | | | | | 02/22/09 at 1141, Until Ginna | | AM PDT | | | | | 02/22/09 at 1145 | | | | | | + +-------+ +-------+---+---+ +---+---+ | | | +---+---+ documented in this encounter
--- OUTSIDE RECORDS SUMMARY | ~2019-10-16 | XMS | Encounter Summary ---
Demographics + + + | Address | [address] | | | [place] [address] | + + + | Home Phone [...] Providers + +------+ + | Care Chief Bank Examiner Name | Role | Phone | + +------+ + PCP | Unavailable | + +------+ + Encounter Details +--------+ + + + + | Date | Type | Department | Care Team | Description | +--------+ + + + + | 08/11/ | Hospital | [facility] | Ruben Tobias | | | 2001 | Encounter | MED CTR SLEEP | MD Raji [address] | | | | | ARTHUR [address] | [place] | | | | | [place], [place] | [place] [address] | | | | | [address] | [phone] | | | | | [phone] | | | +--------+ + + + [...] | | | | | | [place] [address] | | | | | | [phone] | | | | | | | | +--------+ + + + + | 12/20/ | Office | Audiology | Elisabet Munson MS | | | 2019 | Visit | | [facility] | | | | | | [address] [place] [address] [place] | | | | | | [place] [address] | | | | | | [phone] | | | | | | | | +--------+ + + + + | 12/20/ | Office | Otolaryngology | Ulysses Genao MD | | | 2020 | Visit | | [address] [facility] | | | | | | [address] [place], | | | | | | [place] [address] | | | | | | [phone] | | | | | | | | +--------+ + + + + documented as of this encounter Visit Diagnoses Not on filedocumented in this encounter"
--- OUTSIDE RECORDS SUMMARY | ~2019-10-16 | XMS | Encounter Summary ---
Demographics + + + | Address | [address] | | | [place] [address] | + + + | Home Phone [...] Team Providers + +------+ + | Care Photocomposition Keyboard Operator Name | Role | Phone | [...] | +--------+ + + + + | 10/19/ | Telephone | [facility] | Alanis, | Lab Order | | 2017 | | MEDICINE [address] [place] [address] | MD [place] | | | | | [facility] | [address] [place] [address] | | | | | [place] [address] | [place] [address] | | | | | [phone] | [phone] | | | | | | | [...] | | | | | [place] [address] | | | | | | [phone] | | | | | | | | +--------+ + + + + | 12/20/ | Office | Audiology | Elisabet Munson MS | | 2019 | Visit | | [facility] [address] | | | | | | [address] [place] | | | | | | [place] [address] | | | | | | [phone] | | | | | | | | +--------+ + + + + | 12/20/ | Office | Otolaryngology | Ulysses Genao MD | | | 2020 | Visit | | [address] | | | | | | [address] [place], | | | | | | [place] [address] | | | | | | [phone] | | | | | | | | +--------+ + + + + documented as of this encounter Visit Diagnoses Not on filedocumented in this encounter"
--- OUTSIDE RECORDS SUMMARY | ~2019-10-16 | XMS | Encounter Summary ---
Demographics + + + | Address | [address] | | | [place] [address] | + + + | Home Phone [...] Team Providers + +------+ + | Care Broom Man Name | Role | Phone | + [...] + + | 02/25/ | Telephone | [facility] INTER[facility] | Alanis, | Pain | | 2019 | | MEDICINE [address] [place] [address] | MD [place] | | | | | [facility] | [address] [place] [address] | | | | | [place] [address] | [place] [address] | | | | | [phone] | [phone] | | | | | | | [...] | | | | | [place] [address] | | | | | | [phone] | | | | | | | | +--------+ + + + + | 12/20/ | Office | Audiology | Elisabet Munson MS | | 2019 | Visit | | [facility] [address] | | | | | | [address] [place] | | | | | | [place] [address] | | | | | | [phone] | | | | | | | | +--------+ + + + + | 12/20/ | Office | Otolaryngology | Ulysses Genao MD | | | 2020 | Visit | | [address] [facility] | | | | | | [address] [place], | | | | | | [place] [address] | | | | | | [phone] | | | | | | | | +--------+ + + + + documented as of this encounter Visit Diagnoses Not on filedocumented in this encounter"
--- OUTSIDE RECORDS SUMMARY | ~2019-10-16 | XMS | Encounter Summary ---
Demographics + + + | Address | [address] | | | [place] [address] | + + + | Home Phone [...] Team Providers + +------+ + | Care Child Care Supervisor Name | Role | Phone | [...] Description | +--------+--------+ + + + | 10/05/ | Refill | [facility] | Alanis, | Medication Refill | | 2017 | | MEDICINE [address] [place] [address] | MD [place] | | | | | [facility] | [address] [place] [address] | | | | | [place] [address] | [place] [address] | | | | | [phone] | [phone] | | | | | | | [...] | | | | | | [place] [address] | | | | | | [phone] | | | | | | | | +--------+ + + + + | 12/20/ | Office | Audiology | DarioElisabet ramires MS | | | 2019 | Visit | | [facility] [address] | | | | | | [address] [place] | | | | | | [place], [place] [address] | | | | | | [phone] | | | | | | | | +--------+ + + + + | 12/20/ | Office | Otolaryngology | Ulysses Genao MD | | | 2019 | Visit | | [address] | | | | | | [address] [place], | | | | | | [place] [address] | | | | | | [phone] | | | | | | | | +--------+ + + + + documented as of this encounter Visit Diagnoses Not on filedocumented in this encounter"
--- OUTSIDE RECORDS SUMMARY | ~2019-10-16 | XMS | Encounter Summary ---
Demographics + + + | Address | [address] | | | [place] [address] | + + + | Home Phone [...] Providers + +------+ + | Care Contract Manager Name | Role | Phone | + +------+ + | Pderito Gutierrez MD | PCP | | + [...] | | | [facility] | [place], [place] | | | | | [address] | [address] | | | | | [address] | [phone] | | | | | [facility] | | | | | | [facility] | | | | | | [facility] [place], | | | | | | [place] [address] | | | | | | [phone] | | | +--------+ + + + [...]
--- OUTSIDE RECORDS SUMMARY | ~2019-10-16 | XMS | Encounter Summary ---
Demographics + + + | Address | [address] | | | [place] [address] | + + + | Home Phone [...] Team Providers + +------+ + | Care [employer] Name | Role | Phone | + [...] + + | 06/30/ | Telephone | [facility] | Alanis, | Other | | 2019 | | MEDICINE [address] [place] [address] | MD Petrona | | | | | [facility] | [address] [place] [address] | | | | | [place] [address] | [place] [address] | | | | | [phone] | [phone] | | | | | | | [...] | | | | | [place] [address] | | | | | | [phone] | | | | | | | | +--------+ + + + + | 12/20/ | Office | Audiology | Elisabet Munson MS | | 2019 | Visit | | [facility] [address] | | | | | | [address] [place] | | | | | | [place] [address] | | | | | | [phone] | | | | | | | | +--------+ + + + + | 12/20/ | Office | Otolaryngology | Ulysses Genao MD | | | 2019 | Visit | | [address] | | | | | | [address] [place], | | | | | | [place] [address] | | | | | | [phone] | | | | | | | | +--------+ + + + + + +---------+--------+ + + | Name | Type | Priori | Associated Diagnoses | Order Schedule | | | | ty | | | + +---------+--------+ + + | US Renal Limited | Imaging | Routin | Renal cyst | Expected: | | | | e | | 07/05/2018, Expires: | | | | | | 07/05/2019 | + +---------+--------+ + + documented as of this encounter Visit Diagnoses + + | Diagnosis | + + | 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
--- OUTSIDE RECORDS SUMMARY | ~2019-10-16 | XMS | Encounter Summary ---
Demographics + + + | Address | [address] | | | [place] [address] | + + + | Home Phone [...] +------+ + | Care Pipe Smoking Machine Operator Name | Role | Phone [...] Description | +--------+---------+ + + + | 01/04/ | Office | [facility] Comprehensive | Delfina Molina, | Spondylosis with | | 2006 | Visit | Pain Center at | ANP | Myelopathy, Lumbar | | | | [facility] | | Region; Herniated | | | | [address] | | Lumbar | | | | Mailcode: [id number] | | Intervertebral Disc | | | | [facility] | | L4-5; Left Knee | | | | and Healing, | | Pain; Opioid | | | | Building | | Dependence, | | | | Floor [place], [place] | | Continuous ([facility]); | | | | [address] | | Migraine Headache; | | | | [phone] | | Fibromyalgia | | | | | | syndrome 729.1; | | | | | | Major Depressive | | | | | | Disorder, Recurrent | | | | | | Episode, Moderate | | | | | | ([facility]); Adjustment | | | | | | Disorder with | | | | | | Anxiety; Pain in | | | | | | right Ankle and Foot | +--------+---------+ + + + Social History [...] + | Blood Pressure | 130/84 | 01/04/2007 1:29 PM | | | | | PDT | | + + + + + | Pulse | 88 | 01/04/2007 1:29 PM | | | | | PDT | | + + + + + | Temperature | 37.2 C (99 F) | 01/04/2007 1:29 PM | | | | | PDT | | + + + + + | Respiratory Rate | 16 | 01/04/2007 1:29 PM | | | | | PDT | | + + + + + | Oxygen Saturation | - | - | | + + + + + | Inhaled Oxygen | - | - | | | Concentration | | | | + + + + + | Weight | 88.7 kg (195 lb 8 | 01/04/2007 1:29 PM | | | | oz) | PDT | | + + + + + | Height | 175.3 cm (5' 9") | 01/04/2007 1:29 PM | | | | | PDT | | + + + + + | Body Mass Index | 28.87 | 01/04/2007 1:29 PM | | | | | PDT | | + + + + + documented in this encounter Patient Instructions Patient Instructions Delfina Molina - 01/04/2007 2:07 PM PDTTake Oxycontin 20mg, 2 tablet s every 12 hours. Note the effect on your pain control and adverse side effects. Continue oxycodone 5mg 1-2 tablet every 4-6 hrs as needed for activity related breakthrough pain NTE 4 per day. Follow up in one week to review Continue with outside PT and Independent Home Exercise Program documented in this encounter Progress Notes Delfina Molina - 01/04/2007 1:49 PM PDTFormatting of this note might be different from lesli rodriguez original. 01/04/2007 Belinda Meehan is a 46 y.o. female [facility] Comprehensive Pain Center Return Visit Chief Complaint: Chief Complaint Patient presents with Back pain History of Present Illness: Belinda Meehan is a 46 y.o. year-old female with a history of chronic pain due to degenerative spine and joint disease Belinda Meehan is here today for a follow up visit to review chronic pain management plan of care. Since prior visit this condition has improved. She does not have new pain complaints on t his visit. Expectations for this visit include continue with current treatment for next two months the n reveiw A Brief Pain Inventory and a pain drawing has be completed, which I reviewed. Current pain intensity on a VA Scale 0-10 is: 7 The worst pain is located in the low back and described as dull aching and constant, with right leg pain. Treatments since last visit includes: rotation of fentanyl patch to oral oxycontin went wit hout a problem she denies any adverse side effects and that it is working to reduce her pain by 30%. She reports that it is not as helpful for the abdominal pain or migraines as the f entanyl was, but it does help with the back pain more along with doing physical and pool the rapy 2-3 times per week. With the current medication regimen, Belinda Conteh pain is well contro lled., using narcotic analgesics intermittently up to 4 oxycodone PRN. Since prior visit, mood is reported to be: "better a little bit" and sleep improved Review of Systems: Bones, Joints, and Muscles: joint pain and muscle pain Gastrointestinal System: negative Genitourinary System: negative Nervous System: Headaches decreased since being on Trileptal Psychiatric History: sleep disturbance improved though No confusion or sedation with medications. Since prior visit, there have been no changes, past surgical history, family history, or so cial history. Hx of GERD and increased with actonel PPI helps Current outpatient prescriptions Medication Sig Dispense Refill Oxycodone HCl 5 mg Oral Tablet take 2 tablets (10 mg) by oral route every 4 hours as ne eded for pain average of 3-4 per day Oxycodone HCl (OXYCONTIN) 20 mg Oral Tablet Sustained Release 12 hr take 1 tablet (20 m g) by oral route every 12 hours Omeprazole (PRILOSEC) 20 mg Oral Capsule, Delayed Release(E.C.) take 1 capsule (20 mg) by oral route once daily before a meal LEVOTHYROXINE OR takes .05mg daily Oxcarbazepine (TRILEPTAL) [...] Family History Mother Migraine Physical examination: BP 130/84 | Pulse 88 | Temp (Src) 99 F (37.2 C) (Oral) | Resp 16 | Ht 1.753 m (5' 9") | Wt 88.678 kg (195 lbs 8.0 oz) Body mass index is 28.87 kg/(m^2). General appearance: Alert in no acute distress, well groomed, pleasant right antalgic gait Impression: 721.42 Spondylosis with Myelopathy, Lumbar Region 722.10H Herniated Lumbar Intervertebral Disc L4-5 719.46J Left Knee Pain 304.01B Opioid Dependence, Continuous 346.90D Migraine Headache 729.1 Fibromyalgia syndrome 729.1 296.32 Major Depressive Disorder, Recurrent Episode, Moderate 309.24 Adjustment Disorder with Anxiety 719.47 Pain in right Ankle and Foot improved no longer using leg immobilizer Belinda Meehan was compliant with all aspects of chronic opioid therapy , is using the me dication as directed, demonstrates benefits, and has no serious adverse effects. There were no significant cognitive or mood impairments. There is no evidence of diversion past or pre sent. She would likely benefit by a dose increase of her oxycontin to improve the duration o f effect and potentially reduce the use of PRN oxycodone. I will continue to prescribe Belinda's medications till she has recovered from her left knee arthroplasty and he chronic pain has been re-evaluated I hope that with her left knee pain being addressed with surgery and rehabilitation that her back pain can be addressed and impr tiago with physical therapy. Recommendations/Plan: A 30 minute visit with greater than 50% spent in reviewing the progress notes and counselli ng/education of the patient. 1.Take Oxycontin 20mg, 2 tablets every 12 hours. Note the effect on your pain control and adverse side effects. 2. Continue oxycodone 5mg 1-2 tablet every 4-6 hrs as needed for activity related breakthro ugh pain NTE 4 per day. 3. Follow up in one week to review 4. Continue with outside PT and Independent Home Exercise Program DELFINA MOLINA [facility] Comprehensive Pain Center Mail code CH 4P [place] [place] [address] [facility] [address] Ailyn Foster - 01/05/20 07 1:29 PM PDTCMA History: PMH/PSH/SH/FH review 1. Has your pain changed from your last visit? decreased 2. Do you have any new weakness [...] medication refills today? yes documented in this [place]healtht Plan of Treatment Not on filedocumented as of this encounter Visit Diagnoses + + | Diagnosis | + + | Spondylosis with myelopathy, lumbar region | + + | Herniated Lumbar Intervertebral Disc L4-5 Displacement of lumbar intervertebral disc | | without myelopathy | + + | Left Knee Pain Pain in joint, lower leg | + + | Opioid dependence, continuous (HCC) Opioid type dependence, continuous | + + | Migraine headache Migraine, unspecified, without mention of intractable migraine | | without mention of status migrainosus | + + | Fibromyalgia syndrome 729.1 Mylagia and myositis, unspecified | + + | Major depressive disorder, recurrent episode, moderate (HCC) Major depressive | | disorder, recurrent episode, moderate | + + | Adjustment disorder with anxiety | + + | Pain in right Ankle and Foot Pain in joint, ankle and foot | + + documented in this encounter
--- OUTSIDE RECORDS SUMMARY | ~2019-10-16 | XMS | Encounter Summary ---
Demographics + + + | Address | [address] | | | [place] [address] | + + + | Home Phone [...] Team Providers + +------+ + | Care Tanbark Peeler Name | Role | Phone | + +------+ + | Petrona Thapa | PCP | | | MD | | | + +------+ + Encounter Details +--------+---------+ + + + | Date | Type | Department | Care Team | Description | +--------+---------+ + + + | 12/18/ | Surgery | [facility] | Luther Brito MD | EGD | | 2018 | | MED CTR MP INTRA OP | [address] | | | | | [address] | [place], [place] | | | | | [place], [place] | [address] | | | | | [address] | [phone] | | | | | [phone] | | | +--------+---------+ + + + [...] You can't be awakened Date Last Reviewed: 04/01/201619990413-3290 [employer]. [address] [place] [address]. All righ ts reserved. This information is [...] tablet by mouth | | 0 | 09/16/20 | | | Vitamins-Minerals | twice daily [...] | 120 | 1 | 09/23/19 | | | (CARAFATE) 1 g | [...] | | | | | | [place] [address] | | | | | | [phone] | | | | | | | | +--------+ + + + + | 12/20/ | Office | Audiology | Elisabet Munson MS | | | 2019 | Visit | | [facility] [address] | | | | | [address] [place] | | | | | | [place] [address] | | | | | | [phone] | | | | | | | | +--------+ + + + + | 12/20/ | Office | Otolaryngology | Ulysses Genao MD | | | 2019 | Visit | | [address] | | | | | | [address] [place], | | | | | | [place] [address] | | | | | | [phone] | | | | | | | [...] 12/18/2017 | PROVATION | | 10:49 AMMRN: [id number] #: [id number] of : | | | 9Admit Type: AmbulatoryAge: 57Room: [facility] 01Gender: FemaleNote | | | Status: FinalizedAttending MD: Luther Brito [facility]: | | | Upper GI endoscopyIndications: Generalized abdominal | | | pain, Heartburn, Suspected esophageal | | | reflux, DiarrheaProviders: Luther Brito MD, Maris | | | LIUDMILA Epperson, Tal Diaz CMA, Ruben | | | Hudson Kumar MD (Anesthesia [...] the anesthesiologist and the | | | plastics technician in the pre-procedure area in the [...] | appearing mucosa. This was traversed. The sinjl-lr-awpzcsn limb | | | was characterized by healthy appearing mucosa. The | | | jejunojejunal anastomosis was characterized by healthy | | | appearing mucosa. The hkbcrtzy-kk-bbalwao limb was not examined | | | [...] AMScope Out: | | | 11:08:34 AM [facility] [address] | | | [place] [address] | | | - Return to GI [...] |Scope Out: 11:08:34 AM | | | [facility] [address] [place], [place] | | | [address] | | + + -+ + +---------+ [...] | [facility] | | GastroenterologyPatient Name: Belinda Josselinerocedstanley Date: 12/18/2017 | PROVATION | | 10:43 AMMRN: [id number] #: [id number] of : | | | 9Admit Type: AmbulatoryAge: 57Room: [facility] 01Gender: FemaleNote | | | Status: FinalizedAttending MD: Luther Brito [facility]cedure: | | | ColonoscopyIndications: Generalized abdominal pain, | | | Chronic diarrheaProviders: Luther Brito MD, Jessica | | | [...] the anesthesiologist and the | | | plastics technician in the pre-procedure area in the [...] Scope In: 11:12:28 AMScope Out: 11:56:57 AM [place] | | | [facility], [address] [place] [address] | | | [phone] | | | - Await pathology results. [...] |Scope Out: 11:56:57 AM | | | [facility], [address] [place] [address] | | | [address] | | + + -+ + +---------+ [...] for specific diagnostic abnormality. | | | VR:[facility]:C2NR GROSS DESCRIPTION: Received in five parts. | [...] | | slide preparation were performed by [employer], [address] [place] [address] | | | [facility], [facility] [[email or web address]] [address], [place] [address] (Buffer Operator: Stephen Jacobson, | | | Joanna CLIA#: [id number]). Professional interpretation was performed | | | by [employer], [facility], [facility] | | | [facility] [place] [address] (Buffer Operator: Stephen | | | Joanna Jacobson; CLIA#: [id number]). Diagnostician: Stephen Khan | | | Kavon [...] filedocumented in this encounter Administered Medications + +--------+---------+------+------+------+ [...] ONCE PRN, Wheezing, | | | Starting 12/18/17 at 0905, For | | | 1 [...] glucose < 50, | | | Starting Thu12/18/17 at 0905, | | | Repeat in [...] MIN PRN, Pain, Starting | | | 12/18/17 at 1223, Maximum total | | | [...] PRN, Nausea, Vomiting, | | | Starting Thu12/18/17 at 1223, | | | First line [...]
--- OUTSIDE RECORDS SUMMARY | ~2019-10-16 | XMS | Encounter Summary ---
Demographics + + + | Address | [address] | | | [place] [address] | + + + | Home Phone [...] Team Providers + +------+ + | Care Leasing Machine Tender Name | Role | Phone [...] | - Disregard | | | | [facility] | | | | | | [address] | | | | | | Mailcode: CH15P | | | | | | [facility] | | | | | | and Healing, | | | | | | Building | | | | | | Floor [place], [place] | | | | | | [address] | | | | | | [phone] | | | +--------+ + + + [...]
--- OUTSIDE RECORDS SUMMARY | ~2019-10-16 | XMS | Encounter Summary ---
Demographics + + + | Address | [address] | | | [place] [address] | + + + | Home Phone [...] Providers + +------+ + | Care Power Plant Superintendent Name | Role | Phone | + +------+ + PCP | Unavailable | + +------+ + Encounter Details +--------+ + + + + | Date | Type | Department | Care Team | Description | +--------+ + + + + | 07/31/ | Hospital | [facility] | Ruben Tobias | | | 2005 | Encounter | MED CTR SLEEP | MD Raji [address] | | | | | [place] [address] | [facility] | | | | | [place], [place] | [place] [address] | | | | | [address] | [phone] | | | | | [phone] | | | +--------+ + + + [...] | | | | | [place] [address] | | | | | | [phone] | | | | | | | | +--------+ + + + + | 12/20/ | Office | Audiology | Elisabet Munson MS | | | 2019 | Visit | | [facility] | | | | | | [address] [place] [address] [place] | | | | | | [place] [address] | | | | | | [phone] | | | | | | | | +--------+ + + + + | 12/20/ | Office | Otolaryngology | Ulysses Genao MD | | | 2020 | Visit | | [address] [facility] | | | | | | [address] [place], | | | | | | [place] [address] | | | | | | [phone] | | | | | | | | +--------+ + + + + documented as of this encounter Visit Diagnoses Not on filedocumented in this encounter"
--- OUTSIDE RECORDS SUMMARY | ~2019-10-16 | XMS | Encounter Summary ---
Demographics + + + | Address | [address] | | | [place] [address] | + + + | Home Phone [...] Providers + +------+ + | Care Court Administrator Name | Role | Phone | + +------+ + | Pedrito Gutierrez MD | PCP | | + +------+ + Encounter Details +--------+ + + + + | Date | Type | Department | Care Team | Description | +--------+ + + + + | 01/14/ | Telephone | [facility] | Chris Padgett, | | | 2009 | | [place] [address] | [address] [facility] | | | | | [place] Mailcode: CH4S | [facility] | | | | | [facility] | [place], [place] | | | | | and Healing, | [address] | | | | | [facility] | [phone] | | | | | Floor [place], [place] | | | | | | [address] | | | | | | [phone] | | | +--------+ + + + [...]
--- OUTSIDE RECORDS SUMMARY | ~2019-10-16 | XMS | Encounter Summary ---
Demographics + + + | Address | [address] | | | [place] [address] | + + + | Home Phone [...] Team Providers + +------+ + | Care Ecological Technical Officer Name | Role | Phone | [...] | | | | | hemorrhoid | [place], [place] | [address] [facility] | | | | | Rectal pain | [address] | [facility] | | | | | Procedures | | [address] [place], | | | | | CONSULT TO | | [place] | | | | | [place] | | [address] | | | | | SURGERY | | Phone: | | | | | | | [phone] | | | | | | | Fax: | | | | | | | [phone] | +--------+--------+ + + + + Encounter Details +--------+ + + + + | Date | Type | Department | Care Team | Description | +--------+ + + + + | 08/10/ | Hat Trimmer | [facility] | Nuris Cardenas, ANP | Internal Hemorrhoid; | | 2008 | | [place] [address] [address] | | Rectal Pain | | | | [address] | | | | | | Mailcode: [id number] | | | | | | [facility] | | | | | | [place], [place] | | | | | | [address] | | | | | | [phone] | | | +--------+ + + + [...]
--- OUTSIDE RECORDS SUMMARY | ~2019-10-16 | XMS | Encounter Summary ---
Demographics + + + | Address | [address] | | | [place] [address] | + + + | Home Phone [...] Team Providers + +------+ + | Care Professor Of Apologetics Name | Role | Phone | + [...] [address] | | | | | | [place], [place] | | | | | | [address] | | | | | | [phone] | | | +--------+--------+ + + + [...]
--- OUTSIDE RECORDS SUMMARY | ~2019-10-16 | XMS | Encounter Summary ---
Demographics + + + | Address | [address] | | | [place] [address] | + + + | Home Phone [...] Providers + +------+ + | Care Mail Messenger Name | Role | Phone | [...]
--- OUTSIDE RECORDS SUMMARY | ~2019-10-16 | XMS | Encounter Summary ---
Demographics + + + | Address | [address] | | | [place] [address] | + + + | Home Phone [...] Team Providers + +------+ + | Care Liner Inserter Name | Role | Phone | + [...] | Visit | [facility] [address] | [place] | syndrome 729.[address] | | | | [address] | | (Primary Dx); | | | | Physician's | | Fibromyalgia | | | | [address], [address] Floor | | | | | | [place], [place] | | | | | | [address] | | | | | | [phone] | | | +--------+---------+ + + + [...]
--- OUTSIDE RECORDS SUMMARY | ~2019-10-16 | XMS | Encounter Summary ---
Demographics + + + | Address | [address] | | | [place] [address] | + + + | Home Phone [...] Team Providers + +------+ + | Care Education Analyst Name | Role | Phone | [...] + + | 03/03/ | Office | [facility] Comprehensive | Delfina Molina, | LBP (Low Back Pain); | | 2007 | Visit | Pain Center at | ANP | Spondylosis with | | | | [facility] | | Myelopathy, Lumbar | | | | [address] | | Region; Bilateral | | | | Mailcode: CH15P | | Leg Pain; | | | | [facility] | | Radiculitis, | | | | and Healing, | | Lumbosacral; | | | | Building | | Encounter for | | | | Floor [place], [place] | | Long-Term (Current) | | | | [address] | | Use of Opioids; Hx | | | | [phone] | | Arthroplasty of both | | [...] Belinda Meehan is a 48 y.o. female [facility] Comprehensive [...] be ing reviewed by Dr Constantino SHEEHAN youth specialist. MRI of the brain and it was normal A Brief Pain Inventory and a pain drawing has be completed, which I reviewed. [facility] Brief Pain Inventory: (ten= worst [...] Ogden PhD TPI every 5-6 months with [facility] Rheumatology Hilda Saenz Review [...] history, fam bijan history, or social history. [facility] Encorinology [facility] ACNP ThuNovember 12, 2007 Assessment: 1) [...] continue to discuss with her options at [facility] with, hopefully, coordinatio n [...] 300 mg) by oral route once daily ngoabwdtrm-zwbydmlwppaej-wutuouqm (FIORICET) 50-325-40 mg Oral Tablet take 2 [...] DISK BULGE. Transcribed By: Armaan Mata : [id number] : 1442 Approved By: Radiologist: Physical Examination: [...] with any concerns or questions. DELFINA MOLINA [facility] Mail code CH 4P [facility] [address] [place] [address] Ailyn Foster - 03/03/20 08 10:24 [...]
--- OUTSIDE RECORDS SUMMARY | ~2019-10-16 | XMS | Encounter Summary ---
Demographics + + + | Address | [address] | | | [place] [address] | + + + | Home Phone [...] Team Providers + +------+ + | Care Research Dietitian Name | Role | Phone | + +------+ + | Sulaiman Carrera MD | PCP | | + +------+ + Encounter Details +--------+ + + + + | Date | Type | Department | Care Team | Description | +--------+ + + + + | 04/02/ | Hospital | Registration 3181 | Astrid Artis | | | 2005 | Activity | TRACE Wilson MD [address] | | | | | [place] Mailcode: RPB07 | [place], [place] | | | | | [place], [place] | [address] | | | | | [address] | [phone] | | | | | [phone] | | | +--------+ + + + [...] + | SURGICAL PATHOLOGY | Routin | 04/02/2006 | | Results for this | | | e | | | procedure are in the | | | | | | results section. | + +--------+ + + + documented in this encounter Results SURGICAL PATHOLOGY (04/02/2006) + + + + + + | Component | Value | Ref Range | Performed | Pathologist | | | | | At | Signature | + + + + + + | SURGICAL | SOURCE OF SPECIMEN:A | | [facility] | | | PATHOLOGY | Jejunum biopsySOURCE OF | | DEPARTMENT | | | | SPECIMEN:B Sigmoid colon | | OF | | | | polyp biopsySOURCE OF | | PATHOLOGY | | | | SPECIMEN:C Rectal polyp | | | | | | x 2 Final Pathologic | | | | | | Diagnosis:A: Small | | | | | | bowel, jejunum, mucosal | | | | | | biopsy: - Small | | | | | | bowel mucosa with no | | | | | | diagnostic abnormalityB: | | | | | | Colon, sigmoid, | | | | | | polypectomy: - | | | | | | Hyperplastic polypC: | | | | | | Rectum, polypectomy x | | | | | | 2: - Colorectal | | | | | | mucosa with xanthomatous | | | | | | changes of lamina | | | | | | propria - Negative | | | | | | for dysplasia- Please | | | | | | see comment Comment: | | | | | | The findings in the | | | | | | rectal biopsies reveal | | | | | | xanthomatous changesof | | | | | | lamina propria. Special | | | | | | stains for PAS/d, | | | | | | mucicarmine and Sana | | | | | | arereviewed. Case | | | | | | reviewed by:Mayra Loya | | | | | | Joanna Jung/Surgical | | | | | | Pathology FellowDavid | | | | | | Jo Ann | | | | | | M.D./PathologistT:04/06/ | | | | | | 06:[facility] I have reviewed | | | | | | all diagnostic slides | | | | | | and have edited the | | | | | | gross and/ormicroscopic | | | | | | portion of this report | | | | | | as part of my pathologic | | | | | | assessment andfinal | | | | | | diagnosis. Clinical | | | | | | History:The patient is a | | | | | | 46-year-old female. | | | | | | Status post gastric | | | | | | bypass. Now | | | | | | irondeficiency; small | | | | | | bowel looks normal. | | | | | | Rule out sprue. Few | | | | | | sessile polyps.Rule out | | | | | | ulceration. Gross | | | | | | Description:Three | | | | | | specimens are received | | | | | | in formalin. A: | | | | | | Jejunum biopsy: | | | | | | Received are five | | | | | | fragments of karimi, soft | | | | | | tissue,measuring 0.5 x | | | | | | 0.5 x 0.5 cm in | | | | | | aggregate. The entire | | | | | | specimen issubmitted. B: | | | | | | Sigmoid colon polyp | | | | | | biopsy x 2: Received | | | | | | are two fragments of | | | | | | karimi,soft tissue, | | | | | | measuring 0.5 x 0.5 x | | | | | | 0.2 cm in aggregate. | | | | | | The entirespecimen is | | | | | | submitted. C: Rectal | | | | | | polyp x 2: Received is | | | | | | a single fragment of | | | | | | karimi, soft | | | | | | tissue,measuring 0.5 x | | | | | | 0.3 x 0.2 cm. The | | | | | | entire specimen is | | | | | | submitted. Cassette | | | | | | Index:A: Jejunum | | | | | | biopsy:A1B: Sigmoid | | | | | | colon polyp biopsy x | | | | | | 2:B1, wrappedC: Rectal | | | | | | polyp x 2:C1, | | | | | | wrappedJK:CNL:labRenderi | | | | | | ng Diagnostician: | | | | | | Manish Cherry | | | | | | MNajmaPathologistElectroni | | | | | | mary carmen Signed 04/06/2006 | | | | + + + + + + + + | Specimen | + + | | + + + + + + + | Performing | Address | City/State/Zipcode | Phone Number | | Organization | | | | + + + + + | [facility] | [address] | [place] [address] | | | PATHOLOGY | [address] | | | + + + + + | [facility] DEPARTMENT [facility] | [facility] | [place] [address] | | | PATHOLOGY | [address] | | | + + + + + documented in this encounter Visit Diagnoses Not on filedocumented in this encounter"
--- OUTSIDE RECORDS SUMMARY | ~2019-10-16 | XMS | Encounter Summary ---
Demographics + + + | Address | [address] | | | [place] [address] | + + + | Home Phone [...] Providers + +------+ + | Care Business Analytics Analyst Name | Role | Phone | [...] | | | | | abdominal | [place] | [address] [facility] [address] | | | | | pain | Health & | [facility] | | | | | Procedures | Science | [address] [place], | | | | | REQUEST TO | University | [place] | | | | | SURGERY | [address] | [address] | | | | | TECHNICAL COMMUNICATION TEACHER | [address]em [address] | Phone: | | | | | CO | Rd | [phone] | | | | | EXPLORATORY | [place], [place] | Fax: | | | | | OF ABDOMEN | [address] | [phone] | | | | | [address] | | | | | | [...] | | | | | | [address] [place], | | | | | | | [place] | | | | | | | [address] | | | | | | | Phone: | | | | | | | [phone] | | | | | | | Fax: | | | | | | | [phone] | +--------+--------+ + + + + Encounter Details +--------+---------+ + + + | Date | Type | Department | Care Team | Description | +--------+---------+ + + + | 11/24/ | Office | Digestive Health | Chris Ruano, | Chronic Abdominal | | 2007 | Visit | Center [address] | [address] | Pain (Primary Dx) | | | | Ave Mailcode: CH4S | [address] | | | | [facility] | [place], [place] | | | | | and Healing, | [address] | | | | | Building 1, 6th | [phone] | | | | | Floor [place], [place] | | | | | | [address] | | | | | | [phone] | | | +--------+---------+ + + + [...] the resident s note. CHRIS RUANO MD [facility] [address] [facility] [place] [address] Chris Peralta - 10:55 AM [...] not work at this time. Lives in [place], [place] FH: Noncontributory ROS: No recent fevers, [...] + + + | [facility] | [address] | [place] [address] | | | PATHOLOGY | [address] | | | + + + + + | [facility] | [address] | [place] [address] | | | PATHOLOGY | [address] [...]
--- OUTSIDE RECORDS SUMMARY | ~2019-10-16 | XMS | Encounter Summary ---
Demographics + + + | Address | [address] | | | [place] [address] | + + + | Home Phone | | + + + | Preferred Language | Unknown | + + + | Marital Status | | + + + | Adventist Affiliation | 1001 | + + + | Race | Unknown | + + + | Ethnic Group | Unknown | + + + Author + + + | Author | [facility] | | | and Jairana | + + + | Organization | [facility] | | | [...] Providers + +------+ + | Care Well Blower Name | Role | Phone | + [...] + + | 05/25/ | Refill | [facility] | Alanis, | Medication Refill | | 2016 | | MEDICINE [address] [place] [address] | MD Petrona | | | | | [facility] | [address] [place] [address] | | | | | [place] [address] | [place] [address] | | | | | [phone] | [phone] | | | | | | | [...] | | | | | | [place] [address] | | | | | | [phone] | | | | | | | | +--------+ + + + + | 12/20/ | Office | Audiology | DarioElisabet ramires MS | | | 2019 | Visit | | [facility] [address] | | | | [address] [place] | | | | | | [place], [place] [address] | | | | | | [phone] | | | | | | | | +--------+ + + + + | 12/20/ | Office | Otolaryngology | Ulysses Genao MD | | | 2019 | Visit | | [address] | | | | | | [address] [place], | | | | | | [place] [address] | | | | | | [phone] | | | | | | | | +--------+ + + + + documented as of this encounter Visit Diagnoses Not on filedocumented in this encounter"
--- OUTSIDE RECORDS SUMMARY | ~2019-10-16 | XMS | Encounter Summary ---
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 Provider: DELFINA MOLINA ANP elfina Molina - 007 6:13 PM PST.pt rlands Nathalia willson - 07/15/2006 4:28 PM PSTFormatting of this note might be different from the origin al. Physical Therapy Medicare Progress Note Date: 07/15/2006 Belinda Meehan [id number]. 1960 Start of Care: 06/23/2006 Referring Provider: Dlefina Molina Primary Diagnosis: Encounter Diagnoses Code Name [...] + + +--------+ + + | [facility] | Procedures | Routin | [...] + + +--------+ + + | [facility] | Procedures | Routin | Cervical [...]
--- OUTSIDE RECORDS SUMMARY | ~2019-10-16 | XMS | Encounter Summary ---
Demographics + + + | Address | [address] | | | [place] [address] | + + + | Home Phone [...] Team Providers + +------+ + | Care Extra Gang Supervisor Name | Role | Phone | [...] as of this encounter Progress Notes Interface, Waiter/Waitress Tavern In - 11/05/2005 2:06 AM PDT [id number] GEOVANNI Barnes [id number] Clinic Date: 10/20/2005 Clinic: Bariatric Surgery Clinic Subjective: Ms. Meehan returns today for continued evaluation of her abdominal pain. She has had a gastric bypass followed by a panniculectomy approximately 1 year ago. She has had diffuse sharp and crampy abdominal pain which lasts up to 45 minutes. She says "it takes her breath away." She went to the emergency room at [facility] last night and got some IV pain [...] . Wali Valentine M.D. CONNOR / SHARIF [id number] / [id number] / [id number] / [id number] Electronically signed by Luther Valentine 11-04-2005 11:36:40 AM documented i n this encounter Plan of Treatment Not on filedocumented as of this encounter Visit Diagnoses Not on filedocumented in this encounter
--- OUTSIDE RECORDS SUMMARY | ~2019-10-16 | XMS | Encounter Summary ---
Demographics + + + | Address | [address] | | | [place] [address] | + + + | Home Phone [...] Team Providers + +------+ + | Care Instrument Technician Apprentice Name | Role | Phone | [...] Description | +--------+--------+ + + + | 02/18/ | Refill | [facility] | Alanis, | Results, Imaging | | 2017 | | MEDICINE [address] [place] [address] | MD [place]ron[place] | | | | | [facility] | [address] [place] [address] | | | | | [place] [address] | [place] [address] | | | | | [phone] | [phone] | | | | | | | [...] | | | | | | [place] [address] | | | | | | [phone] | | | | | | | | +--------+ + + + + | 12/20/ | Office | Audiology | Ceasar MunsonahMS | | | 2019 | Visit | | [facility] [address] | | | | | [address] [place] | | | | | | [place] [address] | | | | | | [phone] | | | | | | | | +--------+ + + + + | 12/20/ | Office | Otolaryngology | Ulysses Genao MD | | | 2019 | Visit | | [address] | | | | | | [address] [place], | | | | | | [place] [address] | | | | | | [phone] | | | | | | | | +--------+ + + + + documented as of this encounter Visit Diagnoses Not on filedocumented in this encounter"
--- OUTSIDE RECORDS SUMMARY | ~2019-10-16 | XMS | Encounter Summary ---
Demographics + + + | Address | [address] | | | [place] [address] | + + + | Home Phone [...] Team Providers + +------+ + | Care Electronic Warfare Technician Name | Role | Phone | [...] as of this encounter Progress Notes Interface, Environmental Health Inspector In - 01/11/2005 7:39 PM PDT Referred [...] 3-6 months time. She is coming from [place] so this can be scheduled on the same day of her physician visit. General surgery can schedule this. 5. Indra's business card with contact information for questions. Svetlana Maki R.D., LKyrie. SR/y39 P [phone] cc: documente d in this encounter Plan of Treatment Not on filedocumented as of this encounter Visit Diagnoses Not on filedocumented in this encounter"
--- OUTSIDE RECORDS SUMMARY | ~2019-10-16 | XMS | Encounter Summary ---
Demographics + + + | Address | [address] | | | [place] [address] | + + + | Home Phone [...] Team Providers + +------+ + | Care Blueprint Duplicator Name | Role | Phone | + +------+ + PCP | Unavailable | + +------+ + Encounter Details +--------+ + + + + | Date | Type | Department | Care Team | Description | +--------+ + + + + | 12/09/ | Discharge | | Summary, Discharge | D/C Summary ODDS | | 2005 | Summary-Tra | | | | | [...] as of this encounter Discharge Summaries Interface, Group Therapy Counselor In - 01/12/2005 10:09 AM PDT [id number] GEOVANNI Barnes Admission Date: 12/06/2004 Discharge Date: 12/09/2004 Staff Physician: Chris Padgett M.D. Principal Final Diagnosis: Unwanted paniculectomy. Other Diagnosis: Previous history of gastric bypass. Reason for Admission: This is a 44-year-old female who lost approximately 200 pounds following gastric bypass surgery. She currently has a large pannus compromising her daily activities. In addition, she has bilateral excess skin on her thighs that she wants removed. Hospital Course: This patient was admitted postoperatively with [address] Her pain was well controlled with medication. She remained afebrile. Her drains continued to place over 100 mL per ZACARIAS of serosanguinous fluid. Her postoperative hematocrit remained stable. She advanced her diet as tolerated and was able to have a bowel movement and ambulate appropriately. Upon discharge, her incision looked clear, dry, and intact. Holland were in place. She had some moderate amount of serous drainage coming out from her left thigh wound. There appears to be a small seroma in place; however, it did not appear erythematous or painful. She remained afebrile throughout this event. Condition on Discharge: Stable. Disposition: To home. Discharge Medication(s): Oxycodone 15 mg p.o. q.3 h. p.r.n. She was given 5-mg tablets, #60. Activity: As tolerated with weight-lifting restrictions to less than 20 pounds until followup visit. Diet: Regular bariatric diet. Followup appointment will be with Dr. Chris Padgett on , December 19, 2004. At that point, the JPs will likely be removed as well as the efren. Sree Carrillo M.D. Chris Padgett M.D. / [id number] / [id number] / [id number] / [id number] Electronically signed by Chris Padgett 12-31-2004 03:03:21 PM documented i n this encounter Plan of Treatment Not on filedocumented as of this encounter Visit Diagnoses Not on filedocumented in this encounter"
--- OUTSIDE RECORDS SUMMARY | ~2019-10-16 | XMS | Encounter Summary ---
Demographics + + + | Address | [address] | | | [place] [address] | + + + | Home Phone [...] Providers + +------+ + | Care Research And Development Manager Name | Role | Phone [...] as of this encounter Progress Notes Interface, Wash Tank Tender In - 01/13/2005 9:03 AM PDT [id number] GEOVANNI Barnes Clinic Date: 01/02/2005 Clinic: Endocrinology [...] her again in about 6 months. Beto eMeks M.D. PD / HS [id number] / [id number] / [id number] / [id number] cc: Chris Padgett M.D. documented i n this encounter Plan of Treatment Not on filedocumented as of this encounter Visit Diagnoses Not on filedocumented in this encounter"
--- OUTSIDE RECORDS SUMMARY | ~2019-10-16 | XMS | Encounter Summary ---
Demographics + + + | Address | [address] | | | [place] [address] | + + + | Home Phone [...] Team Providers + +------+ + | Care Cracking Machine Operator Name | Role | Phone | + +------+ + | Petrona Thapa | PCP | | | MD | | | + +------+ + Reason for Referral Service/Procedure (Routine) +--------+--------+ + + + + | Status | Reason | Specialty | Diagnoses / | Referred By | Referred To | | | | | Procedures | Contact | Contact | +--------+--------+ + + + + | Denied | | Massage | Diagnoses | Rob, | | | | | Therapist | Acute | [facility] | | | | | | midline low | [address] | | | | | | back pain | [address] | | | | | | with | [address] | | | | | | bilateral | [place], | | | | | | sciatica | [place] [address] | | | | | | S/P lumbar | Phone: | | | | | | fusion | [phone] | | | | | | Sacroiliac | Fax: | | | | | | inflammation | [phone] | | | | | | (HCC) | | | | | | | Osteoporosis | | | | | | | with | | | | | | | current | | | | | | | pathological | | | | | | | fracture | | | | | | | with delayed | | | | | | | healing, | | | | | | | unspecified | | | | | | | osteoporosis | | | | | | | type, | | | | | | | subsequent | | | | | | | encounter | | | +--------+--------+ + + + + Evaluate & Treat (Routine) +--------+ + + + + + | Status | Reason | Specialty | Diagnoses / | Referred By | Referred To | | | | | Procedures | Contact | Contact | +--------+ + + + + + | Closed | Specialty | Physical | Diagnoses | Rob, | [facility] | | | Services | Therapy | Acute | [facility] | | | Required | | midline low | [address] | PHYSICAL | | | | | back pain | [address] | [address] | | | | | with | [address] | [place] | | | | | bilateral | [place], | [place], [place] | | | | | sciatica | [place] [address] | [address] | | | | | S/P lumbar | Phone: | Phone: | | | | | fusion | [phone] | [phone] | | | | | Sacroiliac | Fax: | Fax: | | | | | inflammation | [phone] | [phone] | | | | | ([facility]) | | | | | | | Osteoporosis | | | | | | | with | | | | | | | current | | | | | | | pathological | | | | | | | fracture | | | | | | | with delayed | | | | | | | healing, | | | | | | | unspecified | | | | | | | osteoporosis | | | | | | | type, | | | | | | | subsequent | | | | | | | encounter | | | | | | | Procedures | | | | | | | HIM 09/23/18 | | | +--------+ + + + + + Reason for Visit + + + | Reason | Comments | + + + | Back Pain | | + + + Evaluate & [...] | | n | low back | [address] | [address] | | | | | pain without | [address] | [place] | | | | | sciatica | [address] | [address] Phone: | | | | | | [place], | [phone] | | | | | | [place] | Fax: | | | | | | [address] | [phone] | | | | | | Phone: | | | | | | | [phone] | | | | | | | Fax: | | | | | | | [phone] | | +--------+ + + + + + Encounter Details +--------+---------+ + + + | Date | Type | Department | Care Team | Description | +--------+---------+ + + + | 09/23/ | Office | [facility] | Lencho Rivas, | Sacroiliac | | 2019 | Visit | PHYSIATRY [address] | PA-C [address] | inflammation (HCC) | | | | [address] | [address] [place] | (Primary Dx); Acute | | | | [place] | [place] [address] | midline low back | | | | [address] | [phone] | pain with bilateral | | | | [phone] | | sciatica; S/P lumbar | | | | | | fusion; | | | | | | Osteoporosis with | | | | | | current pathological | | | | | | fracture with | | | | | | delayed healing, | | | | | | unspecified | | | | | | osteoporosis type, | | | | | | subsequent | | | | | | encounter; | | | | | | Fibromyalgia [...] + + + | Blood Pressure | 99/57 | 09/23/2018 9:05 AM | | | | | PDT | | + + + + + | Pulse | 65 | 09/23/2018 9:05 AM | | | | | PDT [...] | 91.2 kg (201 lb 1 | 09/23/2018 9:05 AM | | | | oz) | PDT | | + + + + + | Height | 172.7 cm (5' 8") | 09/23/2018 9:05 AM | | | | | PDT | | + + + + + | Body Mass Index | 30.57 | 09/23/2018 9:05 AM | | | | | PDT | | + + + + + documented in this encounter Patient Instructions Patient Instructions Lencho Rivas PA-C - 09/23/2018 9:20 AM PDTReferral to michelle james ([facility]). Referral to massage therapy. Due to severity of osteoporosis we cannot do injections safely. Continue to go to pain management for pain control medications. Possible Causes of Low Back or Leg Pain BIG: The symptoms in your back or leg may be due to pressure on a nerve. This pressure may be caused by a damaged disk or by abnormal bone growth. Either way, you may feel pain, burni ng, tingling, or numbness. If you have pressure on a nerve that connects to the sciatic nerv e, pain may shoot down your leg. Pressure from the disk Constant wear and tear can weaken a disk over time and cause back pain. The disk can then b e damaged by a sudden movement or injury. If its soft center starts to bulge, the disk may p ress on a nerve. Or the outside of the disk may tear, and the soft center may squeeze throug h and pinch a nerve. Pressure from bone As a disk wears out, the vertebrae right above and below the disk start to touch. This can put pressure on a nerve. Often, abnormal bone (called bone spurs) grows where the vertebrae rub against each other. This can cause the foramen or the spinal canal to narrow (called magnolia nosis) and press against a nerve. Date Last Reviewed: 08/13/[id number] [employer]. [address] [place] [address]. All righ ts reserved. This information is not intended as a substitute for professional medical care. Always follow your healthcare professional's instructions. documented in this encounter Progress Notes Lencho Rivas PA-C - 09/23/2018 9:20 AM PDTFormatting of this note might be different fro m the original. Lencho Rivas PA-C [address] [place] [address], [address] [place] [address] FAX: CHIEF COMPLAINT: Chief Complaint Patient presents with Back Pain HISTORY OF PRESENT ILLNESS: The patient is a 58 y.o. female with the complaint of back sym ptoms that began many years ago. The patient describes symptom onset following standing str aight for 5 minutes. The symptoms have been gradually worsening. Patient does have recent fracture of left great toe. She also has history of fractures in the past years of multiple arm fractures. Recent bone density scan shows a T score of -4.1. Patient has had sacroili ac injections in the past with great relief. She rates the pain as severe. The symptoms are daily, continuous. She describes the pain as aching, dull, numbing, sharp and tingling. The patient describes leg symptoms that occur on both sides. The leg symptoms are constant and the symptoms travels from the lateral thigh to feet bilaterally. The patient does not report any change in bowel or bladder function recently. Her symptoms improve with nothing. Her symptoms worsen with laying down. She has tried PT, TENS, Steroids, Injections and Muscle relaxers. . PAST MEDICAL HISTORY: Past Medical History: Diagnosis Date Anemia Anxiety Arthritis Atypical chest pain Benign essential hypertension Blind left eye Cervical radiculopathy Chronic bilateral low back pain with left-sided sciatica Chronic low back pain 01/04/2015 Chronic neck pain 01/04/2015 Chronic pain Chronic venous insufficiency Coccydynia Common migraine COPD (chronic obstructive pulmonary disease) ([facility]) Depression Diarrhea Dumping syndrome Fall at home Fatigue fracture of vertebra Fibromyalgia Full dentures GERD (gastroesophageal reflux disease) Glaucoma Hyperparathyroidism ([facility]) Hypothyroidism IBS (irritable bowel syndrome) Idiopathic scoliosis Leg edema Low back pain Lumbar postlaminectomy syndrome Lumbar radiculopathy primarily right 01/04/2015 Meniere syndrome Migraine with aura Migraines Muscle cramping Muscle spasm Myalgia Nausea Nonalcoholic hepatosteatosis Obesity Opioid dependence ([facility]) Orthostatic hypotension OLIVER (obstructive sleep apnea) Osteoarthritis, generalized Osteopenia Osteoporosis Palpitations Peripheral neuropathy Rheumatoid arthritis ([facility]) Right arm pain 01/04/2015 RLS (restless legs syndrome) S/P lumbar fusion 01/04/2015 Scoliosis Sleep apnea Spondylosis with myelopathy, lumbar region Stroke ([facility]) Syncope Tremor Type II or unspecified type diabetes mellitus with other specified manifestations, not stated as uncontrolled 05/04/2017 Vitamin D deficiency PAST SURGICAL HISTORY: Past Surgical History: Procedure Laterality Date ADENOIDECTOMY APPENDECTOMY BREAST LUMPECTOMY Left 2002 CARPAL TUNNEL RELEASE 2002 SECTION CHOLECYSTECTOMY 2004 COLONOSCOPY N/A 12/18/2017 Procedure: COLONOSCOPY; Surgeon: Luther Brito MD; Location: [facility] DILATION AND CURETTAGE OF UTERUS ELBOW SURGERY FINGER TRIGGER RELEASE 2003 FINGER TRIGGER RELEASE 2010 GASTRIC BYPASS SURGERY 2004 HYSTERECTOMY 05/14/1980 JOINT REPLACEMENT Bilateral 2007 2008 KNEE ARTHROSCOPY 2005 LAPAROSCOPY 01/27/2015 LAPAROTOMY 2008 ROTATOR CUFF REPAIR 2005 SPINE SURGERY TONSILLECTOMY 1964 UPPER GASTROINTESTINAL ENDOSCOPY N/A 12/18/2017 Procedure: EGD; Surgeon: Luther Brito MD; Location: [facility] CURRENT MEDICATIONS: Current Outpatient Medications Medication Sig Dispense Refill [...] 0 COMBIGAN 0.2-0.5 % ophthalmic solution 0 fluticasone (FLONASE) 50 mcg/nasal spray 1 [...] Cla Maddie Thapa MD 1,000 mcg at 09/15/18 1121 ALLERGIES: Allergies Allergen Reactions Ensure Diarrhea Food Diarrhea Lactose Codeine Sulfate Nausea Only Levofloxacin Hives, Itching and Rash Butalbital Ropinirole Amitriptyline Hcl Other (See Comments) Confused and questionable for seizures Ajsshxskev-Twir-Zdvmhjjv Hives and Rash Cephalexin Hives Ciprofloxacin Hives and Rash Clarithromycin Hives and Rash Clindamycin Hcl Hives and Rash Doxycycline Rash Duloxetine Other (See Comments) Migraines and nausea Ketorolac Hives Levofloxacin Hives and Rash Morphine Swelling Penicillins Hives and Rash Ropinirole Hcl Hives Sulfamethoxazole-Trimethoprim Hives and Rash Tramadol Hcl Nausea Only SOCIAL HISTORY: The patient reports that she quit smoking about 4 years ago. Her smoking use included ciga rettes. She has a 15.00 pack-year smoking history. She has never used smokeless tobacco. She reports that she does not drink alcohol or use drugs. FAMILY HISTORY: Family History Problem Relation [...] High blood pressure Son Renal failure Son REVIEW OF SYSTEMS: GENERALLY: +fever, +night sweats, no anemia, +fatigue, +profound weight changes. EYES: +eye problems, +use of corrective lenses, +eye injury, no double vision, +blindness. EARS, NOSE, AND THROAT: No changes in taste or smell, +hearing difficulty, +ringing in the ears, no ear drainage, +dizziness, no voice changes, no difficulty swallowing, no significa nt snoring, no sleep apnea, no sinus problems, +major dental work(dentures) NEUROLOGICALLY: Please see the review of systems discussed above in the history of present illness. In addition, the patient has numbness/pain of legs, awake with numbness, weakness , tremor/shaking, stroke, fainting spells, loss of consciousness, muscle aching, coordinatio n difficulty, change in walk, headaches, migraine, back injury, pain in back, pain in neck. PSYCHIATRIC: +depression, +sleep disorders, no anxiety, no bipolar disorder, no psychotic episodes. CARDIOVASCULAR: No heart attacks, no heart murmur, no heart fluttering, no chest pain, no ankle swelling. LUNG DISEASE: No shortness of breath, no cough, no tuberculosis, no bloody cough, no asth ma, no emphysema/COPD. GASTROINTESTINAL: +bowel disease, +nausea or vomiting, no rectal bleeding, no constipation , no stool incontinence, no liver disease, no gallbladder disease, +abdominal pain, no ulcer s. KIDNEY DISEASE: +urinary frequency, no painful or difficult urination, +incontinence. ENDOCRINE: No diabetes, +thyroid disease, no osteopenia, +osteoporosis, no breast drainage . SKIN: No breast lumps, +skin changes, no rashes, no itches. HEMATOLOGIC/LYMPHATIC: No enlarged lymph nodes, no easy or unusual bleeding, no personal h istory of cancer. RHEUMATOLOGIC: +joint arthritis, no rheumatoid arthritis. PHYSICAL EXAMINATION: Blood pressure 99/57, pulse 65, height 1.727 m (5' 8"), weight 91.2 kg (201 lb 1 oz), not c urrently . Body mass index is 30.57 kg/m. GENERAL: Belinda Meehan is in no acute distress with unlabored respirations. The patient does appear uncomfortable throughout the exam today. HEENT: HEAD/FACE: EYES: EARS: NASOPHARNYX: OROPHARNYX: Normocephalic and atraumatic. There are no areas of recent trauma. Normal sclerae without icterus. No drainage or tenderness. Clear without drainage. Clear without erythema. NECK (ANTERIOR): Supple and without palpable masses. CHEST: The patient is in no acute respiratory distress with unlabored respirations. HEART: There is lower extremity edema. ABDOMEN: Soft, non-tender, non-distended, and without palpable masses. NEUROLOGIC: The patient is awake, alert, and oriented to time, place, person. She follows simple and complex commands. Her speech is fluent. She comprehends speech well. She has no apparent deficits with short or retirement memory. Cranial nerves 2-12 appear grossly intact. Sensory exam does not show diminished sensation to light touch in the lower extremities. MUSCULOSKELETAL There is tenderness in the midline of the cervical or thoracic spine. Ther e is major palpable deformity of the spine. Straight leg raise and slump-sit are negative. Romeo's maneuver and impingement testing were negative for any groin pain. There was tenderness to palpation over the greater troch anters & sacral sulci. The patient localized the majority of the pain to the entire upper, mid, and low back region. Lumbar facet loading was positive. Strength testing showed 4/5 s trength throughout the lower extremities. The patient was able to heel and toe walk without difficulty. There was no redness, effusion, warmth or joint line tenderness in the knees o r ankles. REFLEXES: (2 OR 2+ IS NORMAL) REFLEX: RIGHT LEFT PATELLAR 0 0 ACHILLES 0 0 BABINSKI DOWNGOING DOWNGOING EXTREMITIES: No cyanosis, clubbing, or edema. Distal pulses are palpable. RADIOGRAPHIC REVIEW: DEXA from August 2018 reviewed in great detail today. Results suggest T score of -4.1. ASSESSMENT: Encounter Diagnoses Name Primary? Acute midline low back pain with bilateral sciatica S/P lumbar fusion Sacroiliac inflammation (HCC) Yes Osteoporosis with current pathological fracture with delayed healing, unspecified osteo porosis type, subsequent encounter Fibromyalgia PLAN: Belinda Meehan presented today, and it was a pleasure seeing this patient and assessing h er problems. 1) Today we discussed the patient's differential diagnosis with the likely primary issue be ing sacroiliitis and severe osteoporosis. Patient's description of symptoms, physical exam, and imaging suggest this diagnosis at this time. 2) I counseled patient on treatment options which included conservative self management usi ng OTC NSAIDs/Ice and heat packs, physical therapy, prescription medications, epidural stero id injection, neuromodulation therapies, as well as possible surgical intervention. 3) Imaging: As descibed above in radiology review. 4) Due to severity of osteoporosis patient is not a candidate for steroid injections. I did feel that Belinda Meehan would be a good candidate for aquatic therapy. Referra l placed today I did feel that Belinda Meehan would be a good candidate for size therapy. Referral placed today Patient is currently enrolled in a pain clinic in [place], [place]. 5) Patient will follow up with me as needed. I spent 30 minutes in visit with Belinda Molly Shefali today with the majority of time spent cou nselling the patient on her diagnosis, options for her care, and coordinating her care. ELECTRONICALLY SIGNED BY: Lencho Rivas PA-C, 09/23/2018 documented in this en counter Plan of Treatment +--------+ + + + [...] | | | | | [place] [address] | | | | | | [phone] | | | | | | | | +--------+ + + + + | 12/20/ | Office | Audiology | Elisabet Munson MS | | | 2019 | Visit | | [facility] [address] | | | | | | [address] | | | | | | [place] [address] | | | | | | [phone] | | | | | | | | +--------+ + + + + | 12/20/ | Office | Otolaryngology | Ulysses Genao MD | | | 2019 | Visit | | [address] [place] | | | | | | [address] [place], | | | | | | [place] [address] | | | | | | [phone] | | | | | | | | +--------+ + + + + + + +--------+ + + | Name | Type | Priori | Associated Diagnoses | Order Schedule | | | | ty | | | + + +--------+ + + | [facility] Aquatic Therapy | Outpatient | Routin | Acute midline low | Ordered: 09/23/2018 | | | Referral | e | back pain with | | | | | | bilateral sciatica | | | | | | S/P lumbar fusion | | | | | | Sacroiliac | | | | | | inflammation (HCC) | | | | | | Osteoporosis with | | | | | | current pathological | | | | | | fracture with | | | | | | delayed healing, | | | | | | unspecified | | | | | | osteoporosis type, | | | | | | subsequent encounter | | + + +--------+ + + | Massage Therapy - | Outpatient | Routin | Acute midline low | Ordered: 09/23/2018 | | AMB Referral | Referral | e | back pain with | | | | | | bilateral sciatica | | | | | | S/P lumbar fusion | | | | | | Sacroiliac | | | | | | inflammation (HCC) | | | | | | Osteoporosis with | | | | | | current pathological | | | | | | fracture with | | | | | | delayed healing, | | | | | | unspecified | | | | | | osteoporosis type, | | | | | | subsequent encounter | | + + +--------+ + + documented as of this encounter Visit Diagnoses + + | Diagnosis | + + | Sacroiliac inflammation (HCC) - Primary Sacroiliitis, not elsewhere classified | + + | Acute midline low back pain with bilateral sciatica | + + | S/P lumbar fusion Arthrodesis status | + + | Osteoporosis with current pathological fracture with delayed healing, unspecified | | osteoporosis type, subsequent encounter | + + | Fibromyalgia Mylagia and myositis, unspecified | + + documented in this encounter
--- OUTSIDE RECORDS SUMMARY | ~2019-10-16 | XMS | Encounter Summary ---
Demographics + + + | Address | [address] | | | [place] [address] | + + + | Home Phone [...] Team Providers + +------+ + | Care Campground Cleaning Attendant Name | Role | Phone | [...] as of this encounter Progress Notes Interface, Collateral Specialist In - 08/30/2005 2:07 AM PST [id number] [facility] Date: 08/11/2005 Clinic: Colorectal [...] Rebekah Navas M.D. Chris Padgett M.D. / [id number] / [id number] / [id number] / [id number] E: 08/14/2005 [email or web address] cc: Dr. Sarah De Jesus, [place] Electronically signed by Chris Padgett 08-29-2005 03:28:30 PM documented i n this encounter Plan of Treatment Not on filedocumented as of this encounter Visit Diagnoses Not on filedocumented in this encounter"
--- OUTSIDE RECORDS SUMMARY | ~2019-10-16 | XMS | Encounter Summary ---
Demographics + + + | Address | [address] | | | [place] [address] | + + + | Home Phone [...] Team Providers + +------+ + | Care Kinesiology Professor Name | Role | Phone | [...] [place], | | | | | [address] [place], [place] | [place] [address] | | | | | [address] | [phone] | | | | | [phone] | | | +--------+ + + + [...] | | | | | | [place] [address] | | | | | | [phone] | | | | | | | | +--------+ + + + + | 12/20/ | Office | Audiology | Elisabet Munson MS | | | 2019 | Visit | | [facility] [address] | | | | | [address] [place] | | | | | | [place] [address] | | | | | | [phone] | | | | | | | | +--------+ + + + + | 12/20/ | Office | Otolaryngology | Ulysses Genao MD | | | 2019 | Visit | | [address] | | | | | | [address] [place], | | | | | | [place] [address] | | | | | | [phone] | | | | | | | | +--------+ + + + + documented as of this encounter Visit Diagnoses Not on filedocumented in this encounter"
--- OUTSIDE RECORDS SUMMARY | ~2019-10-16 | XMS | Encounter Summary ---
Demographics + + + | Address | [address] | | | [place] [address] | + + + | Home Phone [...] Team Providers + +------+ + | Care Batching Operator Name | Role | Phone | [...] as of this encounter Progress Notes Interface, Ingredient Mixer In - 01/12/2005 10:09 AM PDT [id number] [facility] Date: 12/19/2004 Clinic: General [...] as vitamin B12. Melisa Thorne / SHARIF [id number] / [id number] / [id number] / [id number] cc: Pedrito Gutierrez M.D. [address] [address] FAX: [phone] Chris Padgett M.D. General Surgery, [facility] Electronically signed by Kenisha Melton 12-25-2004 04:28:39 PM documented i n this encounter Plan of Treatment Not on filedocumented as of this encounter Visit Diagnoses Not on filedocumented in this encounter"
--- OUTSIDE RECORDS SUMMARY | ~2019-10-16 | XMS | Encounter Summary ---
Demographics + + + | Address | [address] | | | [place] [address] | + + + | Home Phone [...] Team Providers + +------+ + | Care Fur Machine Operator Name | Role | Phone [...] + + | 03/02/ | Telephone | [facility] | Alanis, | Paperwork | | 2017 | | MEDICINE [address] [place] [address] | MD [place] | | | | | [facility] | [address] [place] [address] | | | | | [place] [address] | [place] [address] | | | | | [phone] | [phone] | | | | | | | [...] | | | | | [place] [address] | | | | | | [phone] | | | | | | | | +--------+ + + + + | 12/20/ | Office | Audiology | Elisabet Munson MS | | 2019 | Visit | | [facility] [address] | | | | | | [address] [place] | | | | | | [place] [address] | | | | | | [phone] | | | | | | | | +--------+ + + + + | 12/20/ | Office | Otolaryngology | Ulysses Genao MD | | | 2020 | Visit | | [address] | | | | | | [address] [place], | | | | | | [place] [address] | | | | | | [phone] | | | | | | | | +--------+ + + + + documented as of this encounter Visit Diagnoses Not on filedocumented in this encounter"
--- OUTSIDE RECORDS SUMMARY | ~2019-10-16 | XMS | Encounter Summary ---
Demographics + + + | Address | [address] | | | [place] [address] | + + + | Home Phone [...] Team Providers + +------+ + | Care Intelligence Group Supervisor Name | Role | Phone | + +------+ + | Pedrito Gutierrez MD | PCP | | + +------+ + Reason for Visit + + + | Reason | Comments | + + + | Preop | | + + + | Pre-op evaluation | | + + + Encounter Details +--------+---------+ + + + | Date | Type | Department | Care Team | Description | +--------+---------+ + + + | 02/21/ | Office | Orthopaedics at | Donna Clancy | Other Specified | | 2008 | Visit | [address] | [facility] | Pre-Operative | | | | [address] | [facility] | Examination (Primary | | | | Mailcode: PV430 | [address] | Dx) | | | | Physician's Pavilion | [address] [place], | | | | | [place], [place] | [place] [address] | | | | | [address] | [phone] | | | | | [phone] | | | +--------+---------+ + + + [...] surgeries scheduled to take place on the bolton at the [facility]: Surgeries scheduled in the [facility] ([address] [place] [address]): registration is located on the 4th floor of [facility] (Day Surgery). Surgeries scheduled in the [facility]: registration is located on the 9th floor. Surgeries scheduled in [facility]: registration is located on the 6th floor. Surgeries scheduled in the [facility]: registration is located i n the [facility] on the first floor. For surgeries scheduled to take place at the [facility]: registration is l ocated on the 4th [...] If you use specialized medical equipment at h [facility], please check with your provider before [...] surgeries scheduled to take place on the bolton at the [facility]: Surgeries scheduled in the [facility]): registration is located on the 4th floor of [facility] (Day Surgery). Surgeries scheduled in the [facility]: registration is located on the 9th floor. Surgeries scheduled in [facility]: registration is located on the 6th floor. Surgeries scheduled in the [facility]: registration is located i n the [facility] on the first floor. For surgeries scheduled to take place at the [facility]: registration is l [...] If you use specialized medical equipment at h [facility], please check with your provider before [...] Overview Note: Surgery 05/15/08 Dr Ricky Garnett [place] JEY akrlos to get operative reports Osteopenia [733.90X] 08/24/2007 [...] 08/2007 right knee Hx lumbar fusion 05/2008 [id number] with bone spur removals Hx appendectomy Hx [...] (Ciprofloxacin) Tramadol Morphine IM ( only in [facility]) made gut pain worse 08/27/06: Trial of oral MSIR caused leg swelling Clarithromycin Hives Mainly in the legs Ixkoikn-uxdcjembsw-sjb-caff Balance problems Amitriptyline Grand mal seizures Fioricet W/codeine (Coi-jylifsxddu-duyigwysre-caf) FAMILY HISTORY: Family History Problem Relation Cancer [...] was held, additional questions with discussion were completed.Scott moreau signed by NADEGE Lr at 02/21/2009 11:42 AM PDTdocumented in this encount er Plan [...] | | | DEPARTMENT | | | [place] | | | OF | | | [...] + + + | [facility] | [address] | [place] [address] | | | PATHOLOGY | [address] | | | + + + + + | [facility] DEPARTMENT OF | [address] | [place] [address] | | | PATHOLOGY | [address] [...] DEPARTMENT OF | [address] | [place] [address] | | | PATHOLOGY | [address] | | | + + + + + | [facility] | [address] | [place] [address] | | | PATHOLOGY | [address] | | | + + + + + documented in this encounter Visit Diagnoses + + | Diagnosis | + + | Other specified pre-operative examination - Primary | + + documented in this encounter
--- OUTSIDE RECORDS SUMMARY | ~2019-10-16 | XMS | Encounter Summary ---
Demographics + + + | Address | [address] | | | [place] [address] | + + + | Home Phone [...] Providers + +------+ + | Care Child Day Care Provider Name | Role | Phone | [...] Medication requested | | 2007 | | [place] [address] | [address] | (sucralfate | | | | Ave Mailcode: CH4S | [facility] | (CARAFATE) 1 gram | | | | [facility] | [place], [place] | Oral Tablet) | | | | and Healing, | [address] | | | | | [facility] | [phone] | | | | | [place], [place] | | | | | | [address] | | | | | | [phone] | | | +--------+ + + + [...]
--- OUTSIDE RECORDS SUMMARY | ~2019-10-16 | XMS | Encounter Summary ---
Demographics + + + | Address | [address] | | | [place] [address] | + + + | Home Phone [...] Providers + +------+ + | Care Heel Brusher Name | Role | Phone | + [...] + + | 02/17/ | Clinical | [facility] | Alanis, | Vitamin B12 | | 2017 | Support | MEDICINE [address] [place] [address] | MD [place] | deficiency | | | | [facility] | [address] [place] [address] | | | | | [place] [address] | [place] [address] | | | | | [phone] | [phone] | | | | | | | [...] [place] | | | | | | [address] [place] [address] [place] | | | | | | [place] [address] | | | | | | [phone] | | | | | | | | +--------+ + + + + | 12/20/ | Office | Audiology | Elisabet Munson MS | | | 2019 | Visit | | [facility] [address] | | | | | | [address] [place] | | | | | | [place], [place] [address] | | | | | | [phone] | | | | | | | | +--------+ + + + + | 12/20/ | Office | Otolaryngology | Ulysses Genao MD | | | 2019 | Visit | | [address] | | | | | | [address] [place], | | | | | | [place] [address] | | | | | | [phone] | | | | | | | [...]
--- OUTSIDE RECORDS SUMMARY | ~2019-10-16 | XMS | Encounter Summary ---
Demographics + + + | Address | [address] | | | [place] [address] | + + + | Home Phone [...] Team Providers + +------+ + | Care Toe Closing Machine Tender Name | Role | Phone | + +------+ + | Pedrito Gutierrez MD | PCP | | + +------+ + Encounter Details +--------+---------+ + + + | Date | Type | Department | Care Team | Description | +--------+---------+ + + + | 11/24/ | Office | Preoperative | 2, [facility] Case [facility] [address] | Other Specified | | 2007 | Visit | Medicine Clinic at | [facility] [address] | Pre-Operative | | | | [facility] 4th Floor [address] | [place] [address] | Examination; | | | | [address] | | Hemorrhagic Disorder | | | | Mailcode: CH4S | | due to Intrinsic | | | | [facility] | | Circulating | | | | and Healing, | | Anticoagulants | | | | Building [address]th [facility] | | | | | | [place], [place] | | | | | | [address] | | | | | | [phone] | | | +--------+---------+ + + + [...] DEPARTMENT OF | [address] | [place] [address] | | | PATHOLOGY | [address] | | | + + + + + | [facility] DEPARTMENT OF | [address] | [place] [address] | | | PATHOLOGY | [address] [...] | + + + + + | [facility] DEPARTMENT OF | [address] [facility] | [place] [address] | | | PATHOLOGY | [address] | | | + + + + + | [facility] DEPARTMENT OF | [address] [facility] | [place] [address] | | | PATHOLOGY | [address] [...] DEPARTMENT OF | [address] | [place] [address] | | | PATHOLOGY | [address] | | | + + + + + | [facility] DEPARTMENT OF | [address] | [place] [address] | | | PATHOLOGY | [address] [...] Performed At | + + + | [id number] Estimated GFR > 60 mL/min/1.73 sq m if non- | [facility] | | [place] [id number] Estimated GFR > 60 mL/min/1.73 sq m if | DEPARTMENT OF | | [place] GFR is estimated using the MDRD equation [...] [facility] | [address] [facility] | [place] [address] | | | PATHOLOGY | [address] | | | + + + + + | [facility] | [address] [place] [address] | [place] [address] | | | PATHOLOGY | [address] [...] + + | Ordered by an | [facility] DEPT OF | | unspecified provider. Please click on view image for the detailed | CARDIOLOGY | | interpretation from [employer] results. | | |results. | | | | | + + + + + + + + | Performing | Address | City/State/Zipcode | Phone Number | | Organization | | | | + + + + + | [facility] DEPT OF | [address] | [place], [place] | | | CARDIOLOGY | [address] | [address] | | + + + + + | [facility] DEPT OF | [address] | [place], [place] | | | CARDIOLOGY | [address] | [address] | | + + + + + documented in this encounter Visit Diagnoses + + | Diagnosis | + + | Other specified pre-operative examination | + + | Hemorrhagic disorder due to intrinsic circulating anticoagulants | + + documented in this encounter
--- OUTSIDE RECORDS SUMMARY | ~2019-10-16 | XMS | Encounter Summary ---
Demographics + + + | Address | [address] | | | [place] [address] | + + + | Home Phone [...] + + | Author | [facility] | | | and Jairana | + + + | Organization | [facility] | | [...] Team Providers + +------+ + | Care Raw Material Handler Name | Role | Phone | + +------+ + | Petrona Thapa | PCP | | | MD | | | + +------+ + Reason for Visit + + + | Reason | Comments | + + + | Headache | migraine | + + + | Neck Pain | discuss order for MRI of the neck | + + + Encounter Details +--------+---------+ + + + | Date | Type | Department | Care Team | Description | +--------+---------+ + + + | 03/02/ | Office | [facility] | Emmy[place], | Neck pain on right | | 2018 | Visit | MEDICINE [address] | MD Petrona | side (Primary Dx); | | | | [address] [place] | [address] [place] | Primary stabbing | | | | [place] [address] | [place] [address] | headache; | | | | [phone] | [phone] | Non-intractable | | | | | | vomiting with | | | | | | nausea, unspecified | | | | | | vomiting type | +--------+---------+ + + + Social History [...] + + + | Blood Pressure | 124/70 | 03/02/2018 9:27 AM | | | | | PDT | | + + + + + | Pulse | 56 | 03/02/2018 9:27 AM | | | | | PDT | | + + + + + | Temperature | 36.5 C (97.7 F) | 03/02/2018 9:27 AM | | | | | PDT | | + + + + + | Respiratory Rate | 16 | 03/02/2018 9:27 AM | | | | | PDT | | + + + + + | Oxygen Saturation | 97% | 03/02/2018 9:27 AM | | | | | PDT | | + + + + + | Inhaled Oxygen | - | - | | | Concentration | | | | + + + + + | Weight | 101.2 kg (223 lb 1.7 | 03/02/2018 9:27 AM | | | | oz) | PDT | | + + + + + | Height | - | - | | + + + + + | Body Mass Index | 33.92 | 02/23/2018 1:09 PM | | | | | PDT | | + + + + + documented in this encounter Progress Notes Oksana Florian, Medical Student - 03/02/2018 9:[address] [facility] PROGRESS NOTE Pt. Name/Age/: Belinda Meehan 58 y.o. 1960 Med. Record Number: [id number] HPI: Belinda Meehan is a 58 y.o. female with past history of diabetes type 2, ost eoporosis, and chronic neck pain is presenting today with new onset severe headache for the past 2 days. Patient has a history of migraine headaches with aura but believes that the current episode of headache is more severe than before rating it 10/10 at its worse. She reports that the h eadache is localized to the left parietal region and is associated with neck pain on the rig ht side. She reports photosensitivity, flashing lights in her vision, headache wakes her up at night, and she often feels nauseas with onset of headache. She had an episodes of vomitin g following nausea. She takes hydrocodone for chronic back pain and it has not helped to all eviate the headache. Patient started taking zofran for nausea and that has been helpful. Patient's chronic neck and back pain control is monitored by pain clinic. ROS: See HPI. Otherwise unremarkable. Past Medical History: Diagnosis Date Anemia Anxiety Arthritis Atypical chest pain Benign essential hypertension Blind left eye Cervical radiculopathy Chronic bilateral low back pain with left-sided sciatica Chronic low back pain 01/04/2015 Chronic neck pain 01/04/2015 Chronic pain Chronic venous insufficiency Coccydynia COPD (chronic obstructive pulmonary disease) ([facility]) Depression Diarrhea Dumping syndrome Fall at home Fatigue fracture of vertebra Fibromyalgia Full dentures GERD (gastroesophageal reflux disease) Glaucoma Hyperparathyroidism ([facility]) Hypothyroidism IBS (irritable bowel syndrome) Idiopathic scoliosis Leg edema Low back pain Lumbar postlaminectomy syndrome Lumbar radiculopathy primarily right 01/04/2015 Meniere syndrome Migraine with aura Migraines Muscle cramping Muscle spasm Myalgia Nonalcoholic hepatosteatosis Obesity Opioid dependence ([facility]) Orthostatic hypotension OLIVER (obstructive sleep apnea) Osteoarthritis, generalized Osteopenia Osteoporosis Peripheral neuropathy Rheumatoid arthritis ([facility]) Right arm pain 01/04/2015 RLS (restless legs syndrome) S/P lumbar fusion 01/04/2015 Scoliosis Sleep apnea Spondylosis with myelopathy, lumbar region Stroke ([facility]) Syncope Tremor Type II or unspecified type diabetes mellitus with other specified manifestations, not stated as uncontrolled 05/04/2017 Vitamin D deficiency Past Surgical History: Procedure Laterality Date ADENOIDECTOMY APPENDECTOMY BREAST LUMPECTOMY Left 2002 CARPAL TUNNEL RELEASE 2002 SECTION CHOLECYSTECTOMY 2004 COLONOSCOPY N/A 12/18/2017 Procedure: COLONOSCOPY; Surgeon: Luther Brito MD; Location: [facility] MEDICAL PROCEDURE UNIT DILATION AND CURETTAGE OF UTERUS ELBOW SURGERY FINGER TRIGGER RELEASE 2003 FINGER TRIGGER RELEASE 2010 GASTRIC BYPASS SURGERY 2004 HYSTERECTOMY 05/14/1980 JOINT REPLACEMENT Bilateral 2007,2008 KNEE ARTHROSCOPY 2005 LAPAROSCOPY 01/27/2015 LAPAROTOMY 2008 ROTATOR CUFF REPAIR 2005 SPINE SURGERY TONSILLECTOMY 1964 UPPER GASTROINTESTINAL ENDOSCOPY N/A 12/18/2017 Procedure: EGD; Surgeon: Luther Brito MD; Location: [facility] MEDICAL PROCEDURE UNIT Allergies Allergen Reactions Levofloxacin Hives,Itching,Rash Ovoptglzgl-Oaqp-Txgyjiai Hives,Rash Cephalexin Hives Ciprofloxacin Hives,Rash Clarithromycin Hives,Rash Clindamycin Hcl Hives,Rash Doxycycline Rash Ketorolac Hives Levofloxacin Hives,Rash Morphine Swelling Penicillins Hives,Rash Ropinirole Hcl Hives Sulfamethoxazole-Trimethoprim Hives,Rash Intolerance Allergen Reactions Codeine Sulfate Nausea Only Amitriptyline Hcl Other (See Comments) Confused and questionable for seizures Duloxetine Other (See Comments) Migraines and nausea Tramadol Hcl Nausea Only Current Outpatient Prescriptions Medication Sig Dispense Refill [...] blet 1 SUMAtriptan (IMITREX) 25 mg tablet Take 1 tablet by mouth as needed for Migraine. 12 ta blet 0 topiramate (TOPAMAX) 50 MG tablet take 2 [...] Thapa MD 1,000 mcg at 02/17/18 1149 Physical Exam: Temp: 36.5 C (97.7 F) BP: 124/70 Pulse: 56 Resp: 16 SpO2: 97 % on Wt. Current: Weight: 101.2 kg (223 lb 1.7 oz) BMI: 33.92 Exam: General: Pleasant female in moderate distress, seems drowsy, not a good historian. HEENT: Normocephalic, Atraumatic, Pupils equal and reactive to light, clear conjunctiva, no se normal, mucous membranes pink and moist. Neck tender to palpation in the right suboccipit al region and along the sternocleidomastoid on the right. No lymph node enlargement Cardiovascular: Regular rate and rhythm, Normal S1 and S2, No murmurs, No Rubs, No gallops. No pedal edema Respiratory: Unlabored breathing, Clear to auscultation bilaterally, No wheezing, No crack les Skin: Warm, Surface intact, No lesions or bruises Neurological: Alert and oriented x 3, CN II-XII intact. Psychiatric: Affect normal, bouts of crying when talking about the pain. Assessment and Plan: 1. Neck pain on right side - Patient has chronic neck pain history and would benefit from imaging to see if any change s occurred. - XR Cervical Spine 2 or 3 Views; Future 2. Primary stabbing headache - Patient has a history of migraines but the pain seems to be exacerbated by the neck pain. Follow-up on imaging and inflammatory markers. - Sedimentation Rate; Future 3. Non-intractable vomiting with nausea, unspecified vomiting type - Patient reports that zofran is helping with nausea and vomiting. Likely secondary to head ache. Follow-up with labs. - CBC with Differential; Future - Comprehensive Metabolic Panel; Future Follow up in 1 month around 04/01/2018. Electronically signed by: Oksana Florian, 03/02/2018 11:37 Associated attestation - Petrona Thapa MD - 03/02/2018 12:46 PM PDTPatient s een personally be me. Note reviewed. documented in this encounter Plan of Treatment [...] | | | | | [place] [address] | | | | | | [phone] | | | | | | | | +--------+ + + + + | 12/20/ | Office | Audiology | Elisabet Munson MS | | | 2019 | Visit | | [facility] [address] | | | | | | [address] [place] | | | | | | [place] [address] | | | | | | [phone] | | | | | | | | +--------+ + + + + | 12/20/ | Office | Otolaryngology | Ulysses Genao MD | | | 2019 | Visit | | [address] | | | | | | [address] [place], | | | | | | [place] [address] | | | | | | [phone] | | | | | | | | +--------+ + + + + documented as of this encounter Results Comprehensive Metabolic Panel (03/02/2018 10:41 AM PDT) + + + + + [...] + + + + | K | 4.1 | 3.5 - 5.1 | [facility] | | | | | mmol/L | [facility] | [facility] - | | | | | | [facility]ATORY | | + + + + + + | Cl | 105 | 98 - 109 mmol/L | [facility] | | | | | [facility] | | [facility] | [facility] | | | [facility] - | | | | | | [facility]ATORY | | + + + + + + | CO2 | 27 | 24 - 31 mmol/L | [facility] | | | | | [facility] | | | | [facility] - | | | | | | LABORATORY | | + + + + + + | Anion Gap | 8 | 3 - 16 mmol/L | [facility] | | [facility] | [facility] | [facility] | [facility] - | | | | | | [facility]ATORY | | + + + + + + | Glucose | 101 | 70 - 109 mg/dL | [facility] | | | [facility] | [facility] | | | | | | [facility] | | | | | | [facility] - | | | | | | LABORATORY | | + + + + + + | BUN | 9 | 7 - 18 mg/dL | [facility] | | | | | | [facility] | | | | | | [facility] | | | | | | [facility] - | | | | | | LABORATORY | | + + + + + + | Creatinine | 0.83 | 0.60 - 1.30 | [facility] | | | | | mg/dL | [facility] | | | | | | [facility] | | | | | | [facility] - | | | | | | LABORATORY | | + + + + + + | eGFR if not | >60Comment: GLOMERULAR | >=60 | [facility] | | | | FILTRATION | mL/min/1.73m2 | [facility] | | | [facility] | RATE,ESTIMATED | | MEDICAL | | | | mL/min/1.90i9Kxkw than | | CENTER - | | [...] + + + + | Calcium | 9.0 | 8.3 - 10.5 | [facility] | | | | | mg/dL | [facility] | | | | | | [facility] | | | | | | [facility] - | | | | | | LABORATORY | | + + + + + + | Albumin | 4.4 | 3.2 - 5.0 g/dL | [facility] | | | | | | [facility] | | | | | | [facility] | | | | | | [facility] - | | | | | | LABORATORY | | + + + + + + | Bilirubin | 0.7 | 0.1 - 1.5 mg/dL | [facility] | | | Total | | | [facility] | | | | | | [facility] | | | | | | [facility] - | | | | | | LABORATORY | | + + + + + + | Total | 7.3 | 6.0 - 7.8 g/dL | [facility] | | | Protein | | | [facility] | | | | | | [facility] | | | | | | [facility] - | | | | | | LABORATORY | | + + + + + + | AST | 37 | 10 - 42 U/L | [facility] | | | | | | [facility] | | | [facility] | | [facility] | | | | | [facility] - | | | | | | LABORATORY | | + + + + + + | ALT | 37 | 6 - 45 U/L | [facility] | | | | | | [facility] | | | | | | [facility] | | | | | | [facility] - | | | | | | LABORATORY | | + + + + + + | Alkaline | 99 | 40 - 110 U/L | [facility] | | | Phosphatase | | | [facility] | | | | | | [facility] | | | | | | [facility] - | | | | | | LABORATORY | | + + + + + + | Globulin | 2.9 | 2.1 - 3.8 g/dL | [facility] [...] + + + + | BUN/Creatin | 10.8 | | [facility] | | | ine [...] [address] | [place] | [phone] | | [facility] | | [address] | | | - LABORATORY | | | | + + + + + CBC with Differential (03/02/2018 10:41 AM PDT) + + + + + + | Component | Value | Ref Range | Performed | Pathologist | | | | | At | Signature | + + + + + + | WBC | 10.3 | 4.0 - 11.0 K/uL | [facility] | | | | | | [facility] | | | | | | [facility] | | | | | [facility] - | | | | | | LABORATORY | | + + + + + + | RBC | 4.66 | 3.70 - 5.20 | [facility] | | | | | M/uL | [facility] | | | | | | [facility] | | | | | | [facility] - | | | | | | LABORATORY | | + + + + + + | Hemoglobin | 15.2 | 11.5 - 16.0 | [facility] | | | | | g/dL | [facility] | | | | | | [facility] | | | | | | [facility] - | | | | | | LABORATORY | | + + + + + + | Hematocrit | 45.3 | 34.0 - 47.0 % | [facility] | | | | | | [facility] | | | | | | [facility] | | | | | | [facility] - | | | | | | LABORATORY | | + + + + + + | MCV | 97.2 | 83.0 - 101.0 fL | [facility] | | | | | | [facility] | | | | | | [facility] | | | | | | [facility] - | | | | | | LABORATORY | | + + + + + + | MCH | 32.7 | 28.0 - 35.0 pg | [facility] | | | | | | [facility] | | | [facility] | | [facility] | | | | | | [facility] - | | | | | | LABORATORY | | + + + + + + | MCHC | 33.6 | 32.0 - 36.0 | [facility] | | | | | g/dL | [facility] | | | | | | [facility] | | | | | | C[facility] - | | | | | | LABORATORY | | + + + + + + | RDW-CV | 12.3 | <15.0 % | [facility] | | | | | | [facility] | | | | | | [facility] | | | | | | [facility] - | | | | | | LABORATORY | | + + + + + + | Platelet | 239 | 140 - 440 K/uL | [facility] | | | Count | | | [facility] | | [facility] | | | [facility] | | | | | | [facility] - | | | | | | LABORATORY | | + + + + + + | MPV | 9.6 | fL | [facility] | | | | | | [facility] | | | | | | [facility] | | | | | | [facility] - | | | | | | LABORATORY | | + + + + + + | % | 71.2 | 45.0 - 82.0 % | [facility] | | | Neutrophils | | | [facility] | | | | | | [facility] | | | | | | C[facility] - | | | | | | LABORATORY | | + + + + + + | % | 20.0 | 20.0 - 45.0 % | [facility] | | | Lymphocytes | | | [facility] | | | | | | [facility] | | | | | | [facility] - | | | | | | LABORATORY | | + + + + + + | % Monocytes | 6.6 | 4.0 - 12.0 % | [facility] | | | | | | [facility] | | | [facility] | | [facility] | | | | | | [facility] - | | | | | | LABORATORY | | + + + + + + | % | 0.6 | 0.0 - 5.0 % | [facility] | | | Eosinophils | | | [facility] | | | | | | [facility] | | | | | | CENTER - | | | | | | LABORATORY | | + + + + + + | % Basophils | 1.6 (H) | 0.0 - 1.0 % | [facility] | | | | | | [facility] | | | | | | [facility] | | | | | | [facility] - | | | | | | LABORATORY | | + + + + + + | Absolute | 7.30 | 1.80 - 8.50 | [facility] | | | Neutrophils | | K/uL | [facility] | | | | | | [facility] | | | | | | CENTER - | | | | | | LABORATORY | | + + + + + + | Absolute | 2.10 | 0.60 - 3.20 | [facility] | | | Lymphocytes | | K/uL | [facility] | | | | | | [facility] | | | | | | CENTER - | | | | | | LABORATORY | | + + + + + + | Absolute | 0.70 | 0.00 - 1.00 | [facility] | | | Monocytes | | K/uL | [facility] | | | | | | [facility] | | | | | | CENTER - | | | | | | LABORATORY | | + + + + + + | Absolute | 0.10 | 0.00 - 0.40 | [facility] | | | Eosinophils | | K/uL | [facility] | | | | | | [facility] | | | | | | CENTER - | | | | | | LABORATORY | | + + + + + + | Absolute | 0.20 (H) | 0.00 - 0.10 | [facility] | | | Basophils | | K/uL | [facility] | | | | [...] [address] | [place] | [phone] | | [facility] | | [address] | | | - LABORATORY | | | | + + + + + Sedimentation Rate (03/02/2018 10:41 AM PDT) + +-------+ + + + | Component | Value | Ref Range | Performed | Pathologist | | | | | At | Signature | + +-------+ + + + | Erythrocyte | 4 | <30 mm/hr | [facility] | | [...] ST. | [address] | [place], [place] | [phone] | | [facility] | | [address] | | | - LABORATORY | | | | + + + + + XR Cervical Spine 2 or 3 Views (03/02/2018 10:39 AM PDT) + + | Specimen | + + | | + + + + + | Narrative | Performed At | + + + | XR CERVICAL SPINE 2 OR 3 VIEWS 03/02/2018 10:39 AM HISTORY: Neck | [facility] | | pain. COMPARISON: Multiple priors. FINDINGS: Visualized skull | | | base and facial structures demonstrate no acute findings. | | | Prevertebral soft tissues are normal. There is minimal | | | retrolisthesis of C2 over C3. Minimal anterolisthesis is noted of C4 | | | over C5. Bone mineralization is normal. The dens is normal. Vertebral | | | body height are preserved with no evidence for compression fractures. | | | Disc height are maintained. Facet joints are intact. Soft tissue | | | structures are unremarkable. Visualized upper chest demonstrates no | | | acute findings. IMPRESSION - Minimal degenerative changes as | | | described above. Dictated and Signed by: Sarath Avila MD | | | Electronically signed: 03/02/2018 10:56 AM | | + + + + + | Procedure Note | + + | Tawanda, Rad Results In - 03/02/2018 10:59 AM PDT XR CERVICAL SPINE 2 OR 3 VIEWS | | 03/02/2018 10:39 AMHISTORY: Neck pain.COMPARISON: Multiple priors.FINDINGS:Visualized | | skull base and facial structures demonstrate no acute findings.Prevertebral soft tissues | | are normal.There is minimal retrolisthesis of C2 over C3. Minimal anterolisthesis is | | notedof C4 over C5. Bone mineralization is normal. The dens is normal. Vertebral | | bodyheight are preserved with no evidence for compression fractures. Disc height | | aremaintained. Facet joints are intact. Soft tissue structures are | | unremarkable.Visualized upper chest demonstrates no acute findings. IMPRESSION -Minimal | | degenerative changes as described above.Dictated and Signed by: Sarath Avila MD | | Electronically signed: 03/02/2018 10:56 AM | |There is minimal retrolisthesis of C2 over C3. Minimal anterolisthesis is noted | |of C4 over C5. Bone mineralization is normal. The dens is normal. Vertebral body | |height are preserved with no evidence for compression fractures. Disc height are | |maintained. Facet joints are intact. Soft tissue structures are unremarkable. | |Visualized upper chest demonstrates no acute findings. | | | |IMPRESSION - | |Minimal degenerative changes as described above. | | | |Dictated and Signed by: Sarath Avila MD | | Electronically signed: 03/02/2018 10:56 AM | + + + +---------+ + + | Performing | Address | City/State/Zipcode | Phone Number | | Organization | | | | + +---------+ + + | [facility] | | | | + +---------+ + + documented in this encounter Visit Diagnoses + + | Diagnosis | + + | Neck pain on right side - Primary Cervicalgia | + + | Primary stabbing headache | + + | Non-intractable vomiting with nausea, unspecified vomiting type | + + documented in this encounter"
--- OUTSIDE RECORDS SUMMARY | ~2019-10-16 | XMS | Encounter Summary ---
Demographics + + + | Address | [address] | | | [place] [address] | + + + | Home Phone [...] Team Providers + +------+ + | Care Shirt Cleaner Name | Role | Phone | + +------+ + | Sulaiman Carrera MD | PCP | | + +------+ + Encounter Details +--------+ + + + + | Date | Type | Department | Care Team | Description | +--------+ + + + + | 05/29/ | Ancillary | Registration [id number] | Chris Padgett, | | | 2006 | Registratio | [address] | [address] | | | | n | [place] Mailcode: [id number] | [address] | | | | | [place], [place] | [place], [place] | | | | | [address] | [address] | | | | | [phone] | [phone] | | | | | | | [...]
--- OUTSIDE RECORDS SUMMARY | ~2019-10-16 | XMS | Encounter Summary ---
Demographics + + + | Address | [address] | | | [place] [address] | + + + | Home Phone [...] Team Providers + +------+ + | Care Condemnation Engineer Name | Role | Phone | + +------+ + | Petrona Thapa | PCP | | | MD | | | + +------+ + Reason for Visit + + + | Reason | Comments | + + + | Pain Management | Sees pain clinic in [facility], Was switched to Simran 150mc | | | Transbuccal every 12 hrs | + + + | Results, Imaging | | + + + Encounter Details +--------+---------+ + + + | Date | Type | Department | Care Team | Description | +--------+---------+ + + + | 06/01/ | Office | [facility] | Emmy-Kamlesh, | Fibromyalgia | | 2017 | Visit | MEDICINE [address] | MD Petrona | (Primary Dx); | | | | [address] [place] | [address] [place] | Acquired | | | | [place] [address] | [place] [address] | hypothyroidism; | | | | [phone] | [phone] | Chronic bilateral | | | | | | low back pain | | | | | | without sciatica | +--------+---------+ + + + Social History [...] + + + | Blood Pressure | 103/70 | 06/01/2017 10:52 AM | | | | | PST | | + + + + + | Pulse | 97 | 06/01/2017 10:52 AM | | | | | PST | | + + + + + | Temperature | 36.6 C (97.8 F) | 06/01/2017 10:52 AM | | | | | PST | | + + + + + | Respiratory Rate | 16 | 06/01/2017 10:52 AM | | | | | PST | | + + + + + | Oxygen Saturation | 96% | 06/01/2017 10:52 AM | | | | | PST | | + + + + + | Inhaled Oxygen | - | - | | | Concentration | | | | + + + + + | Weight | 94.3 kg (207 lb 14.3 | 06/01/2017 10:52 AM | | | | oz) | PST | | + + + + + | Height | - | - | | + + + + + | Body Mass Index | 31.61 | 02/23/2017 10:07 AM | | | | | PDT | | + + + + + documented in this encounter Progress Maggie Bose LPN - 06/01/2017 10:45 AM PST Administrations This Visit cyanocobalamin (VITAMIN B-12) injection 1,000 mcg Admin Date 06/01/2017 Action Given Dose 1000 mcg Route Intramuscular Administered By Maggie Montoya LPN Vitamin B12 1000mcg given IM left UOQ. Patient tolerated procedure well.Electronically sign ed by Maggie Montoya LPN at 06/01/2017 11:41 AM Petrona Tafoya MD - 06/01/20 17 10:45 AM PST CHIEF COMPLAINT Chief Complaint Patient presents with Pain Management Sees pain clinic in [facility], Was switched to Belbuca 150 Transbuccal every 12 hrs Results, Imaging HPI Belindavera Meehan is a 57 y.o. y/o female who presents today for f/u for several issues: Has had a visit w/ the pain in the [facility], [place], and they gave her a trial of Belbuca. They also increase her gabapentin as below. She states this regimen is not working for her, she states she leaves with chronic pain 24 hours a day and she has to use a heating pad througho ut day and night. She has chronic back pain and had an x-ray recently showing possible loos e hardware. She is awaiting an MRI. She also has history of fibromyalgia. In the past she states she has used duloxetine and that helped. She is willing to try that again. She was recently seen in urgent care for ear discomfort and was given a course of Erythromy sara for ear infection. She still has some bubbling sensation of her ears but no fever or ch ills. Has an upper respiratory infection recently. Needs a refill of levothyroxine. Also wants a B12 injection today. Has history of deficiency and has been on monthly B12 in [facility] for the last several months. REVIEW OF SYSTEMS See HPI for further details. Review of systems otherwise negative. PAST MEDICAL HISTORY Past Medical History: Diagnosis Date Arthritis Atypical chest pain Benign essential hypertension Blind left eye Cervical radiculopathy Chronic low back pain 01/04/2015 Chronic neck pain 01/04/2015 Chronic pain Chronic venous insufficiency Coccydynia COPD (chronic obstructive pulmonary disease) (HCC) Depression Diarrhea Dumping syndrome Fatigue fracture of vertebra Fibromyalgia Glaucoma Hyperparathyroidism (HCC) Hypothyroidism IBS (irritable bowel syndrome) Idiopathic scoliosis Leg edema Lumbar postlaminectomy syndrome Lumbar radiculopathy primarily right 01/04/2015 Meniere syndrome Migraines Muscle cramping Muscle spasm Myalgia Nonalcoholic hepatosteatosis Obesity Opiate dependence (HCC) Orthostatic hypotension OLIVER (obstructive sleep apnea) Osteoarthritis, generalized Osteopenia Osteoporosis Peripheral neuropathy (HCC) Rheumatoid arthritis (HCC) Right arm pain 01/04/2015 RLS (restless legs syndrome) S/P lumbar fusion 01/04/2015 Scoliosis Spondylosis with myelopathy, lumbar region Stroke (HCC) [...] 0.25% ophthalmic suspension Use twice daily (Patient taking diff erently: Place 1 drop into both eyes 2 times daily.) buprenorphine (BELBUCA) [address] 150 mcg inside cheek every 12 hours. Calcium Carbonate (CALTRATE 600 PO) TABS: 1 [...] daily as needed for Diarrhea. 120 tablet 3 DULoxetine (CYMBALTA) [address] capsule Take 1 capsule by mouth Daily. 30 capsule 2 furosemide (LASIX) 80 mg tablet Take 1 tablet by mouth 2 times daily. 180 tablet 1 gabapentin (NEURONTIN) 300 mg capsule Take 4 capsules by mouth 3 times daily for 30 day s. 360 capsule levothyroxine (SYNTHROID) 75 MCG tablet Take 1 [...] tablet Take 4 mg by mouth every 6 hours as needed for Nausea. potassium chloride (K-DUR) 20 mEq ER tablet [...] Cla Maddie Thapa MD 1,000 mcg at 05/04/17 1713 ALLERGIES Allergies Allergen Reactions Codeine Sulfate Nausea Only Levofloxacin Hives, Itching and Rash Amitriptyline Hcl Other (See Comments) Confused and questionable for seizures Lakfbcpotj-Tubo-Tujxluhp Cephalexin Hives Ketorolac Hives Morphine Swelling Tramadol Hcl Nausea Only Aqlzxyvxfi-Nvlq-Sbqznoor Hives and Rash Ciprofloxacin Hives and Rash Clarithromycin Hives and Rash Clindamycin Hcl Hives and Rash Doxycycline Rash Levofloxacin Hives and Rash Penicillins Hives and Rash Sulfamethoxazole-Trimethoprim Hives and Rash PHYSICAL EXAM VITAL SIGNS: BP 103/70 | Pulse 97 | Temp 36.6 C (97.8 F) (Temporal) | Resp 16 | Wt 94.3 kg (207 lb 14.3 oz) | SpO2 96% | BMI 31.61 kg/m Constitutional: Well developed, Well nourished, No [...] normal, Mood normal. ASSESSMENT & PLAN 1. Fibromyalgia - DULoxetine (CYMBALTA) [address] capsule; Take 1 capsule by mouth Daily. Dispense: 30 caps ule; Refill: 2 2. Acquired hypothyroidism - levothyroxine (SYNTHROID) 75 MCG tablet; Take 1 tablet by mouth every morning (before kaylin akfast). Dispense: 90 tablet; Refill: 3 3. Chronic bilateral low back pain without sciatica - gabapentin (NEURONTIN) 300 mg capsule; Take 4 capsules by mouth 3 times daily for 30 days . Dispense: 360 capsule FOLLOW-UP No Follow-up on file. Note: Parts of this documentwere created using [employer] speech recognition software. As a r esult, there may be unintended word spelling errors. Every attempt was made to correct the dictation. Gayle colin in this encounter Plan of Treatment +--------+ [...] | | | | | [place] [address] | | | | | | [phone] | | | | | | | | +--------+ + + + + | 12/20/ | Office | Audiology | Elisabet Munson MS | | | 2019 | Visit | | [facility] [address] | | | | | [address] [place] | | | | | | [place] [address] | | | | | | [phone] | | | | | | | | +--------+ + + + + | 12/20/ | Office | Otolaryngology | Ulysses Genao MD | | | 2019 | Visit | | [address] | | | | | | [address] [place], | | | | | | [place] [address] | | | | | | [phone] | | | | | | | | +--------+ + + + + documented as of this encounter Procedures + +--------+ + + + | Procedure Name | Priori | Date/Time | Associated Diagnosis | Comments | | | ty | | | | + +--------+ + + + | DIAGNOSTIC REPORT - | | 02/25/2012 | | Results for this | | EXTERNAL SCAN | | 12:00 AM | | procedure are in the | | | | PDT | | results section. | + +--------+ + + + documented in this encounter Results DIAGNOSTIC REPORT - EXTERNAL SCAN (02/25/2012 12:00 AM PDT) + + + | Narrative | Performed At | + + + | Ordered by an | | | unspecified provider. | | + + + documented in this encounter Visit Diagnoses + + | Diagnosis | + + | Fibromyalgia - Primary Mylagia and myositis, unspecified | + + | Acquired hypothyroidism Unspecified hypothyroidism | + + | Chronic bilateral low back pain without sciatica | + + documented in this encounter Administered Medications + +--------+ +--------+------+ + | Medication Order | MAR | Action | Dose | Rate | Site | | | Action | Date | | | | + +--------+ +--------+------+ + | cyanocobalamin (VITAMIN B-12) | Given | 08/19/19 | 1,000 | | Deltoid- | | injection 1,000 mcg 1,000 mcg, | | 18 10:40 | mcg | | Right | | Intramuscular, EVERY 30 DAYS, | | AM PST | | | | | First dose on 02/23/17 at | | | | | | | 1145, For 6 doses | | | | | | + +--------+ +--------+------+ + +-------+ +--------+---+ + | Given | 06/01/20 | 1,000 | | Glut-Lef | | | 17 11:35 | mcg | | t | | | AM PST | | | | +-------+ +--------+---+ + | Given | 05/04/20 | 1,000 | | Deltoid- | | | 17 5:13 | mcg | | Right | | | PM PST | | | | +-------+ +--------+---+ + +---+---+ | | | +---+---+ documented in this encounter"
--- OUTSIDE RECORDS SUMMARY | ~2019-10-16 | XMS | Encounter Summary ---
Demographics + + + | Address | [address] | | | [place] [address] | + + + | Home Phone [...] + +------+ + | Care Forest Fire Prevention Specialist Name | Role | Phone | [...] + + | 10/05/ | Telephone | [facility] | Alanis, | Injections | | 2019 | | MEDICINE [address] [place] [address] | MD Petrona | | | | | [facility] | [address] [place] [address] | | | | | [place] [address] | [place] [address] | | | | | [phone] | [phone] | | | | | | | [...] | | | | | [place] [address] | | | | | | [phone] | | | | | | | | +--------+ + + + + | 12/20/ | Office | Audiology | Elisabet Munson MS | | | 2019 | Visit | | [facility] [address] | | | | | [address] [place] | | | | | | [place] [address] | | | | | | [phone] | | | | | | | | +--------+ + + + + | 12/20/ | Office | Otolaryngology | Ulysses Genao MD | | | 2020 | Visit | | [address] | | | | | | [address] [place], | | | | | | [place] [address] | | | | | | [phone] | | | | | | | | +--------+ + + + + documented as of this encounter Visit Diagnoses Not on filedocumented in this encounter"
--- OUTSIDE RECORDS SUMMARY | ~2019-10-16 | XMS | Encounter Summary ---
Demographics + + + | Address | [address] | | | [place] [address] | + + + | Home Phone [...] + +------+ + | Care Professor Of Communication And Writing Name | Role | Phone | + [...] + + | 11/11/ | Office | [facility] Comprehensive | Delfina Molina, | Spondylosis with | | 2006 | Visit | Pain Center at | ANP | Myelopathy, Lumbar | | | | [facility] | | Region; Left Knee | | | | [address] | | Pain; Right Hip | | | | Mailcode: CH15P | | Region Pain; Opioid | | | | [facility] | | Dependence, | | | | and Healing, | | Continuous ([facility]); | | | | Building | | 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 female PERRY [...] two weeks. 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 Expectations for this visit [...] hypothyroidism Bone spur on right heel - leak inspector last week, insurance [place] for [employer] Current [...] bid 2. Fentanyl patch 25mcg/hr Q72hr 3. [place]ham 10/325 NTE 4 per day 4 Continue [...] [facility] Center Mail code CH 4P [facility] [address] [facility] [address] Tasha Can - 11/11/2006 9:29 AM PDTCMA [...]
--- OUTSIDE RECORDS SUMMARY | ~2019-10-16 | XMS | Encounter Summary ---
Demographics + + + | Address | [address] | | | [place] [address] | + + + | Home Phone [...] Team Providers + +------+ + | Care Scaffold Worker Name | Role | Phone | [...] + + | 11/17/ | Office | [facility] INTER[facility] | Alanis, | Bilateral leg edema | | 2018 | Visit | MEDICINE [address] | MD Petrona | (Primary Dx); Venous | | | | Street [place] | [address] [facility] | insufficiency; | | | | [place] [address] | [place] [address] | Fatigue, unspecified | | | | [phone] | [phone] | type | | | | | [...] APPENDECTOMY BREAST LUMPECTOMY Left 2002 BREAST LUMPECTOMY 2001 CARPAL TUNNEL RELEASE 2002 SECTION CHOLECYSTECTOMY [...] (See Comments) Confused and questionable for seizures Mysdvvehxu-Gwxc-Llxvbecm Cephalexin Hives Duloxetine Migraines and nausea Ketorolac Hives Morphine Swelling Ropinirole Hcl Hives Tramadol Hcl Nausea Only Kieuyunvnb-Vtjw-Wlfcgzkb Hives and Rash Ciprofloxacin Hives and Rash [...] Note: Parts of this documentwere created using [employer] speech recognition software. As a r esult, [...] | | | | | [place] [address] | | | | | | [phone] | | | | | | | | +--------+ + + + + | 12/20/ | Office | Audiology | Elisabet Munson MS | | | 2019 | Visit | | [facility] [address] | | | | | [address] [place] | | | | | | [place] [address] | | | | | | [phone] | | | | | | | | +--------+ + + + + | 12/20/ | Office | Otolaryngology | Ulysses Genao MD | | | 2019 | Visit | | [address] | | | | | | [address] [place], | | | | | | [place] [address] | | | | | | [phone] | | | | | | | [...] [address] | [place] | [phone] | | [facility] | | [address] | | | - LABORATORY | | [...] | | [facility] | | | Sedimentati | | | [...] ST. | [address] | [place] | [phone] | | [facility] | | [address] | | | - LABORATORY | | [...] third generation TSH | uIU/mL | [facility] | | | | test. | | [...] + | [facility] | [address] | [place], [place] | [phone] | | [facility] | | [address] | | | - LABORATORY | | [...] not | >60Comment: GLOMERULAR | >=60 | [facility] | | | | FILTRATION | mL/min/1.73m2 | [facility] | | | GUYANESE | RATE,ESTIMATED | | MEDICAL | | | | mL/min/1.46a8Qsdt than | | CENTER - | | [...] 4.1 | 3.2 - 5.0 g/dL | [facility] | | | | | | [facility] | | | | | | MEDICAL | | | | | | CENTER - | | | | | | LABORATORY | | + + + + + + | Bilirubin | 0.5 | 0.1 - 1.5 mg/dL | [facility] | | | Total | | | [...] [address] | [place] | [phone] | | [facility] | | [address] | | | - LABORATORY | | | | + + + + + CBC with Differential (11/17/2017 11:40 AM PDT) + +-------+ + + + | Component | Value | Ref Range | Performed | Pathologist | | | | | At | Signature | + +-------+ + + + | WBC | 6.5 | 4.0 - 11.0 K/uL | [facility] | | | | | [facility] | | | | | | MEDICAL | | | | | | CENTER - | | | | | | LABORATORY | | + +-------+ + + + | RBC | 4.58 | 3.70 - 5.20 | [facility] | | | | | M/uL | [facility] | [...] | | Neutrophils | | K/uL | [facility] | [...] | Basophils | | K/uL | [facility] | [...] [address] | [place] | [phone] | | [facility] | | [address] | | | - LABORATORY | | [...] | | First dose on [facility] 10/15/17 at 1215 | | | [...]
--- OUTSIDE RECORDS SUMMARY | ~2019-10-16 | XMS | Encounter Summary ---
Demographics + + + | Address | [address] | | | [place] [address] | + + + | Home Phone | | + + + | Preferred Language | Unknown | + + + | Marital Status | | + + + | Restoration Affiliation | 1001 | + + + | Race | Unknown | + + + | Ethnic Group | Unknown | + + + Author + + + | Author | [facility] | | | and Jairana | + + + | Organization | [facility] | | | [...] Providers + +------+ + | Care Clinical Specialist Vascular Name | Role | Phone | + +------+ + | Petrnoa Thapa | PCP | | | MD | | | + +------+ + Reason for Visit + + + | Reason | Comments | + + + | Medication Refill | | + + + Encounter Details +--------+--------+ + + + | Date | Type | Department | Care Team | Description | +--------+--------+ + + + | 03/12/ | Refill | [facility] | Alanis, | Medication Refill | | 2018 | | MEDICINE [address] [place] [address] | MD Petrona | | | | | [facility] | [address] [place] [address] | | | | | [place] [address] | [place] [address] | | | | | [phone] | [phone] | | | | | | | [...] | | | | | [place] [address] | | | | | | [phone] | | | | | | | | +--------+ + + + + | 12/20/ | Office | Audiology | DarioElisabet ramires MS | | | 2019 | Visit | | [facility] [address] | | | [address] [place] | | | | | | [place], [place] [address] | | | | | | [phone] | | | | | | | | +--------+ + + + + | 12/20/ | Office | Otolaryngology | Ulysses Genao MD | | | 2019 | Visit | | [address] | | | | | | [address] [place], | | | | | | [place] [address] | | | | | | [phone] | | | | | | | | +--------+ + + + + documented as of this encounter Visit Diagnoses Not on filedocumented in this encounter"
--- OUTSIDE RECORDS SUMMARY | ~2019-10-16 | XMS | Encounter Summary ---
Demographics + + + | Address | [address] | | | [place] [address] | + + + | Home Phone [...] + +------+ + | Care Director Of Student Affairs Name | Role | Phone | + [...] + + | 08/28/ | Office | [facility] Comprehensive | Delfina Lambert, | Neck Pain; Radicular | | 2008 | Visit | Pain Center at | ANP | Pain in Left Arm; | | | | [facility] | | Fibromyalgia; | | | | [address] | | Chronic Bilateral | | | | Mailcode: CH15P | | Shoulder Pain; | | | | [facility] | | Coccydynia; LBP (Low | | | | and Healing, | | Back Pain); | | | | Building | | Adjustment Disorder | | | | Floor [place], [place] | | with Anxiety; Major | | | | [address] | | Depressive Disorder, | | | | [phone] | | Recurrent Episode, | | | [...] Belinda Meehan is a 48 y.o. female [facility] Return Visit Chief Complaint: Chief [...] drawing has be completed, which I reviewed. 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 documented in [facility] Plan of Treatment Not on filedocumented as [...]
--- OUTSIDE RECORDS SUMMARY | ~2019-10-16 | XMS | Encounter Summary ---
Demographics + + + | Address | [address] | | | [place] [address] | + + + | Home Phone [...] Team Providers + +------+ + | Care Technology Sales Specialist Name | Role | Phone | + +------+ + PCP | Unavailable | + +------+ + Encounter Details +--------+ + + + + | Date | Type | Department | Care Team | Description | +--------+ + + + + | 05/30/ | Results | rKaig Turner | Beto Meeks MD | | | 2003 | Only | [facility] | [address] | | | | | [facility] | [place], [place] | | | | | [address] | [address] | | | | | [address] | [phone] | | | | | Physician's | | | | | | Pavilion, [facility] floor | | | | | | [place], [place] | | | | | | [address] | | | | | | [phone] | | | +--------+ + + + [...] by | | | | | | [facility] | | | | | | Regional Laboratory. | | | | + + + + + + + + | Specimen | + + | | + + + + + + + | Performing | Address | City/State/Zipcode | Phone Number | | Organization | | | | + + + + + | [facility] | [address] | [place] [address] | | | LABORATORY | | | [...] | pg/mL | | | | | [facility] | | | | | | Laboratory. | | | | + + + + + + + + | Specimen | + + | | + + + + + + + | Performing | Address | City/State/Zipcode | Phone Number | | Organization | | | | + + + + + | [facility] | [address] | [place] [address] | | | LABORATORY | | | [...] | + + + + + | [facility] | [address] | [place] [address] | | | PATHOLOGY | [address] | | | + + + + + | [facility] DEPARTMENT OF | [address] | [place] [address] | | | PATHOLOGY | [address] | | | + + + + + documented in this encounter Visit Diagnoses Not on filedocumented in this encounter"
--- OUTSIDE RECORDS SUMMARY | ~2019-10-16 | XMS | Encounter Summary ---
Demographics + + + | Address | [address] | | | [place] [address] | + + + | Home Phone [...] Team Providers + +------+ + | Care Pearl Maker Name | Role | Phone | + +------+ + PCP | Unavailable | + +------+ + Encounter Details +--------+ + + + + | Date | Type | Department | Care Team | Description | +--------+ + + + + | 02/28/ | Abstract | [place] [facility] | DATA MIGRATION MYA | | | 2011 | | Conversion Location | SR | | | | | [address] [facility] | | | | | | [place], [place] | | | | | | [address] | | | | | | [phone] | | | +--------+ + + + [...] + + + | Blood Pressure | 96/54 | 05/03/2010 12:00 AM | | | | | PST [...] + + + + | Weight | 105.2 kg (232 lb) | 05/03/2010 12:00 AM | | | | | PST [...] | | | | | [place] [address] | | | | | | [phone] | | | | | | | | +--------+ + + + + | 12/20/ | Office | Audiology | Elisabet Munson MS | | | 2019 | Visit | | [facility] [address] | | | | | | [place] | | | | | | [place] [address] | | | | | | [phone] | | | | | | | | +--------+ + + + + | 12/20/ | Office | Otolaryngology | Genao, Ulysses E, MD | | | 2020 | Visit | | [address] | | | | | | [address] [place], | | | | | | [place] [address] | | | | | | [phone] | | | | | | | | +--------+ + + + + documented as of this encounter Visit Diagnoses Not on filedocumented in this encounter"
--- OUTSIDE RECORDS SUMMARY | ~2019-10-16 | XMS | Encounter Summary ---
Demographics + + + | Address | [address] | | | [place] [address] | + + + | Home Phone [...] Providers + +------+ + | Care Cook Railroad Name | Role | Phone | [...] | | | | [place], | [address] | | | | | | [place] | Phone: | | | | | | [address] | [phone] | | | | | | Phone: | Fax: | | | | | | [phone] | [phone] | | | | | | Fax: | | | | | | | [phone] | | +--------+ + + + + + Reason for Visit +--------+ + | Reason | Comments | +--------+ + | Other | bladder/ bowel issues | +--------+ + Encounter Details +--------+---------+ + + + | Date | Type | Department | Care Team | Description | +--------+---------+ + + + | 10/15/ | Office | [facility] | Alanis, | Mixed stress and | | 2017 | Visit | MEDICINE [address] [place] [address] | MD Petrona | urge urinary | | | | [facility] | [address] [place] [address] | incontinence | | | | [place] [address] | [place] [address] | (Primary Dx); OLIVER | | | | [phone] | [phone] | (obstructive sleep | | | | [...] Patient presents with Other bladder/ bowel issues [facility] Belinda Meehan is [...] apnea Spondylosis with myelopathy, lumbar region Stroke ([facility]) Syncope Tremor Type II or unspecified type [...] 1,000 mcg 1,000 mcg Intramuscular Q30 Days [facility] Maddie Thapa MD 1,000 mcg at 10/15/17 1149 ALLERGIES Allergies Allergen Reactions Codeine Sulfate Nausea Only Levofloxacin Hives, Itching and Rash Amitriptyline Hcl Other (See Comments) Confused and questionable for seizures Fycqxfnyxn-Vcnx-Zabqvdno Cephalexin Hives Duloxetine Migraines and nausea Ketorolac Hives Morphine Swelling Ropinirole Hcl Hives Tramadol Hcl Nausea Only Qbhewpsjax-Adpp-Lnpmtjrh Hives and Rash Ciprofloxacin Hives and Rash [...] warrant a GI consult. - * [facility] Gastroenterology - AMB Referral; Future 5. S/P gastric bypass - * [facility] Ref[facility]; Future 6. Nausea - ondansetron (ZOFRAN ODT) 4 mg disintegrating tablet; Take 1 tablet by mouth every 6 hours . Dispense: 120 tablet; Refill: 3 FOLLOW-UP Return in about 3 months (around 01/15/2018). Note: Parts of this documentwere created using [employer] speech recognition software. As a r esult, [...] | | | | | | [place] [address] | | | | | | [phone] | | | | | | | | +--------+ + + + + | 12/20/ | Office | Audiology | Elisabet Munson MS | | 2019 | Visit | | [address] | | | | | | [address] [place] | | | | | | [place] [address] | | | | | | [phone] | | | | | | | | +--------+ + + + + | 12/20/ | Office | Otolaryngology | Ulysses Genao MD | | | 2020 | Visit | | [address] | | | | | | [address] [place], | | | | | | [place] [address] | | | | | | [phone] | | | | | | | | +--------+ + + + + + + +--------+ + + | Name | Type | Priori | Associated Diagnoses | Order Schedule | | | | ty | | | + + +--------+ + + | * [facility] | Outpatient | Routin | Chronic diarrhea [...]
--- OUTSIDE RECORDS SUMMARY | ~2019-10-16 | XMS | Encounter Summary ---
Demographics + + + | Address | [address] | | | [place] [address] | + + + | Home Phone [...] Providers + +------+ + | Care Well Digger Name | Role | Phone | + +------+ + | Pedrito Gutierrez MD | PCP | | + +------+ + Reason for Visit + + + | Reason | Comments | + + + | Swelling | INTESTINES | + + + Encounter Details +--------+ + + + + | Date | Type | Department | Care Team | Description | +--------+ + + + + | 04/08/ | Telephone | [facility] Division of | Carlos Arreola, | Swelling | | 2005 | | Gastroenterology/Hep | [address] | (ANDREEA) | | | | atology [address] | | | | | [address] | [place] [address] | | | | | Mailcode: PV310 | [phone] | | | | | [facility] | | | | | | [address] | | | | | | [place], [place] | | | | | | [address] | | | | | | [phone] | | | +--------+ + + + [...]
--- OUTSIDE RECORDS SUMMARY | ~2019-10-16 | XMS | Encounter Summary ---
Demographics + + + | Address | [address] | | | [place] [address] | + + + | Home Phone [...] Providers + +------+ + | Care Concrete Pipe Making Machine Operator Name | Role | [...] floor | | | | | | [place], [place] | | | | | | [address] | | | | | | [phone] | | | +--------+------+ + + + [...] [facility] | [address] | [place] [address] | | | PATHOLOGY | [address] | | | + + + + + | [facility] | [address] | [place] [address] | | | PATHOLOGY | [address] [...] Performed At | + + + | [id number] Estimated GFR > 60 mL/min/1.73 sq m if non- | [facility] | | Panamanian [id number] Estimated GFR > 60 mL/min/1.73 sq m if | DEPARTMENT OF | | Panamanian GFR is estimated using the MDRD equation [...] + + + + | [facility] DEPARTMENT | [address] | [place] [address] | | | PATHOLOGY | [address] | | | + + + + + | [facility] | [address] | [place] [address] | | | PATHOLOGY | [address] [...] RLB ([facility]) | | | [facility] [place] [address] [facility] | | | [place] [address] | | + + + + + + + + | Performing | Address | City/State/Zipcode | Phone Number | | Organization | | | | + + + + + | [facility] | [address] | [place] [address] | | | LABORATORY | | | [...] RLB ([facility]) | | | [facility] [place] [address] | | | [place] [address] | | + + + + + + + + | Performing | Address | City/State/Zipcode | Phone Number | | Organization | | | | + + + + + | [facility] | [address] | [place] [address] | | | LABORATORY | | | | + + + + + documented in this encounter Visit Diagnoses + + | Diagnosis | + + | Hypothyroidism Unspecified hypothyroidism | + + | Edema | + + documented in this encounter"
--- OUTSIDE RECORDS SUMMARY | ~2019-10-16 | XMS | Encounter Summary ---
Demographics + + + | Address | [address] | | | [place] [address] | + + + | Home Phone [...] Providers + +------+ + | Care Hat Body Inspector Name | Role | Phone | [...] | | | | | Procedures | [facility] | Mailcode: | | | | | CONSULT TO | Rd | [facility] | | | | | NEUROLOGY | [place], [place] | for Health | | | | | | [address] | and Healing, | | | | | | Phone: | [address], | | | | | | [phone] | 8th Floor | | | | | | | [place], [place] | | | | | | | [address] | | | | | | | Phone: | | | | | | | [phone] | | | | | | | Fax: | | | | | | | [phone] | +--------+--------+ + + + + Encounter Details +--------+---------+ + + + | Date | Type | Department | Care Team | Description | +--------+---------+ + + + | 03/24/ | Office | Neurology at | Taniya Guerrero, | Migraine Headache | | 2007 | Visit | [facility] & | | (Primary Dx) | | | | Healing [address] | | | | | | Bethanie Mailcode: [facility] | | | | | | [facility] | | | | | | and Healing, | | | | | | Building | | | | | | Floor [place], [place] | | | | | | [address] | | | | | | [phone] | | | +--------+---------+ + + + [...] note might be different from t jayashree original. Clinic Date: 03/24/2008 Clinic: General Neurology Clinic [...] low blood pressure. 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 Social History Main Topics [...] touch symmetrically throughout. Cerebellar testing shows normal ktxbqm-eg-ituk and finger tapping. On gait testing, she [...] the names of 3 headache specialists in [place]- Dr. Koby García, Dr. Dakota Sweet and Dr. Evaristo Nichols. No follow up was made with me. documented in this encou nter Plan of [...] | + + | Other, Faculty - 04/06/2008 7:29 AM PDT | + + documented in this encounter Visit Diagnoses + + | Diagnosis | + + | Migraine headache - Primary Migraine, unspecified, without mention of intractable | | migraine without mention of status migrainosus | + + documented in this encounter
--- OUTSIDE RECORDS SUMMARY | ~2019-10-16 | XMS | Encounter Summary ---
Demographics + + + | Address | [address] | | | [place] [address] | + + + | Home Phone [...] Providers + +------+ + | Care Manager Utilization Name | Role | Phone | + +------+ + PCP | Unavailable | + +------+ + Encounter Details +--------+ + + + + | Date | Type | Department | Care Team | Description | +--------+ + + + + | 08/09/ | Results | | Other, Faculty | | | 2002 | Only | | [phone] | | +--------+ + + + + [...] | + + + | Ordered by [facility] | [facility] | | | DEPARTMENT OF | | | PATHOLOGY | + + + + + + + + | Performing | Address | City/State/Zipcode | Phone Number | | Organization | | | | + + + + + | [facility] DEPARTMENT OF | [facility] | [place] [address] | | | PATHOLOGY | [address] | | | + + + + + | [facility] DEPARTMENT OF | [facility] | [place] [address] | | | PATHOLOGY | [address] | | | + + + + + documented in this encounter Visit Diagnoses Not on filedocumented in this encounter"
--- OUTSIDE RECORDS SUMMARY | ~2019-10-16 | XMS | Encounter Summary ---
Demographics + + + | Address | [address] | | | [place] [address] | + + + | Home Phone [...] | Organization | [facility] | | | and [place] | + [...] Providers + +------+ + | Care Medical Record Administrator Name | Role | Phone | + +------+ + | Petrona Thapa | PCP | | | MD | | | + +------+ + Reason for Visit + + + | Reason | Comments | + + + | Grief/ Loss | | + + + Encounter Details +--------+ + + + + | Date | Type | Department | Care Team | Description | +--------+ + + + + | 03/10/ | Telephone | [facility] INTER[facility] | Alanis, | Grief/ Loss | | 2019 | | MEDICINE [address] [place] [address] | MD Petrona | | | | | [facility] | [address] [place] [address] | | | | | [place] [address] | [place] [address] | | | | | [phone] | [phone] | | | | | | | [...] | | | | | [place] [address] | | | | | | [phone] | | | | | | | | +--------+ + + + + | 12/20/ | Office | Audiology | Elisabet Munson MS | | 2019 | Visit | | [facility] [address] | | | | | | [address] [place] | | | | | | [place] [address] | | | | | | [phone] | | | | | | | | +--------+ + + + + | 12/20/ | Office | Otolaryngology | Ulysses Genao MD | | | 2020 | Visit | | [address] | | | | | | [address] [place], | | | | | | [place] [address] | | | | | | [phone] | | | | | | | | +--------+ + + + + documented as of this encounter Visit Diagnoses Not on filedocumented in this encounter"
--- OUTSIDE RECORDS SUMMARY | ~2019-10-16 | XMS | Encounter Summary ---
Demographics + + + | Address | [address] | | | [place] [address] | + + + | Home Phone | | + + + | Preferred Language | Unknown | + + + | Marital Status | | + + + | Restorationist Affiliation | 1001 | + + + [...] Team Providers + +------+ + | Care Supply Chain Director Name | Role | Phone | [...] | +--------+ + + + + | 08/20/ | Telephone | [facility] | Alanis, | Other | | 2018 | | MEDICINE [address] [place] [address] | MD Petrona | | | | | [facility] | [address] [place] [address] | | | | | [place] [address] | [place] [address] | | | | | [phone] | [phone] | | | | | | | [...] | | | | | [place] [address] | | | | | | [phone] | | | | | | | | +--------+ + + + + | 12/20/ | Office | Audiology | Elisabet Munson MS | | 2019 | Visit | | [facility] [address] | | | | | | [address] [place] | | | | | | [place] [address] | | | | | | [phone] | | | | | | | | +--------+ + + + + | 12/20/ | Office | Otolaryngology | Ulysses Genao MD | | | 2020 | Visit | | [address] [facility] | | | | | | [address] [place], | | | | | | [place] [address] | | | | | | [phone] | | | | | | | | +--------+ + + + + documented as of this encounter Visit Diagnoses Not on filedocumented in this encounter"
--- OUTSIDE RECORDS SUMMARY | ~2019-10-16 | XMS | Encounter Summary ---
Demographics + + + | Address | [address] | | | [place] [address] | + + + | Home Phone [...] | | | [facility] | [place], [place] | | | | | [address] | [address] | | | | | [address] | [phone] | | | | | [facility] | | | | | | Physician's | | | | | | Pavilion [place], | | | | | | [place] [address] | | | | | | [phone] | | | +--------+--------+ + + + [...]
--- OUTSIDE RECORDS SUMMARY | ~2019-10-16 | XMS | Encounter Summary ---
Demographics + + + | Address | [address] | | | [place] [address] | + + + | Home Phone [...] Team Providers + +------+ + | Care Mica Plate Layer Hand Name | Role | Phone | [...] + + | 04/25/ | Refill | [facility] | Alanis, | Medication Refill | | 2016 | | MEDICINE [address] [place] [address] | MD Petrona | | | | | [facility] | [address] [place] [address] | | | | | [place] [address] | [place] [address] | | | | | [phone] | [phone] | | | | | | | [...] | | | | | [place] [address] | | | | | | [phone] | | | | | | | | +--------+ + + + + | 12/20/ | Office | Audiology | DarioElisabet ramires MS | | | 2019 | Visit | | [facility] [address] | | | | | [address] [place] | | | | | | [place], [place] [address] | | | | | | [phone] | | | | | | | | +--------+ + + + + | 12/20/ | Office | Otolaryngology | Ulysses Genao MD | | | 2019 | Visit | | [address] | | | | | | [address] [place], | | | | | | [place] [address] | | | | | | [phone] | | | | | | | | +--------+ + + + + documented as of this encounter Visit Diagnoses Not on filedocumented in this encounter"
--- OUTSIDE RECORDS SUMMARY | ~2019-10-16 | XMS | Encounter Summary ---
Demographics + + + | Address | [address] | | | [place] [address] | + + + | Home Phone [...] Providers + +------+ + | Care Warehouse Shift Supervisor Name | Role | Phone | [...] [facility] | Alanis, | Pain | | 2019 | | MEDICINE [address] [place] [address] | MD Petrona | | | | | [facility] | [address] [place] [address] | | | | | [place] [address] | [place] [address] | | | | | [phone] | [phone] | | | | | | | [...] | | | | | [place] [address] | | | | | | [phone] | | | | | | | | +--------+ + + + + | 12/20/ | Office | Audiology | Elisabet Munson MS | | 2019 | Visit | | [facility] [address] | | | | | | [address] [place] | | | | | | [place] [address] | | | | | | [phone] | | | | | | | | +--------+ + + + + | 12/20/ | Office | Otolaryngology | Ulysses Genao MD | | | 2020 | Visit | | [address] [facility] | | | | | | [address] [place], | | | | | | [place] [address] | | | | | | [phone] | | | | | | | | +--------+ + + + + documented as of this encounter Visit Diagnoses Not on filedocumented in this encounter"
--- OUTSIDE RECORDS SUMMARY | ~2019-10-16 | XMS | Encounter Summary ---
Demographics + + + | Address | [address] | | | [place] [address] | + + + | Home Phone [...] + + + | Author | [facility] | | | and Jairana | + + + | Organization | [facility] | | [...] Team Providers + +------+ + | Care Policy Value Calculator Name | Role | Phone | + [...] + + | 03/25/ | Refill | [facility] | Alanis, | Medication Refill | | 2016 | | MEDICINE [address] [place] [address] | MD Petrona | | | | | [facility] | [address] [place] [address] | | | | | [place] [address] | [place] [address] | | | | | [phone] | [phone] | | | | | | | [...] | | | | | [place] [address] | | | | | | [phone] | | | | | | | | +--------+ + + + + | 12/20/ | Office | Audiology | DarioElisabet ramires MS | | | 2019 | Visit | | [facility] [address] | | | | | [address] [place] | | | | | | [place], [place] [address] | | | | | | [phone] | | | | | | | | +--------+ + + + + | 12/20/ | Office | Otolaryngology | Ulysses Genao MD | | | 2019 | Visit | | [address] | | | | | | [address] [place], | | | | | | [place] [address] | | | | | | [phone] | | | | | | | | +--------+ + + + + documented as of this encounter Visit Diagnoses Not on filedocumented in this encounter"
--- OUTSIDE RECORDS SUMMARY | ~2019-10-16 | XMS | Encounter Summary ---
Demographics + + + | Address | [address] | | | [place] [address] | + + + | Home Phone [...] Team Providers + +------+ + | Care Station Mechanic Apprentice Name | Role | Phone | + +------+ + | Petrona hTapa | PCP | | | MD | | | + +------+ + Reason for Visit + + + | Reason | Comments | + + + | Safety issue | | + + + Encounter Details +--------+ + + + + | Date | Type | Department | Care Team | Description | +--------+ + + + + | 06/09/ | Telephone | [facility] | Alanis, | Safety issue | | 2019 | | MEDICINE [address] [place] [address] | MD Petrona | | | | | [facility] | [address] [place] [address] | | | | | [place] [address] | [place] [address] | | | | | [phone] | [phone] | | | | | | | [...] | | | | | [place] [address] | | | | | | [phone] | | | | | | | | +--------+ + + + + | 12/20/ | Office | Audiology | Elisabet Munson MS | | 2019 | Visit | | [facility] [address] | | | | [address] [place] | | | | | | [place] [address] | | | | | | [phone] | | | | | | | | +--------+ + + + + | 12/20/ | Office | Otolaryngology | Ulysses Genao MD | | | 2020 | Visit | | [address] | | | | | | [address] [place], | | | | | | [place] [address] | | | | | | [phone] | | | | | | | | +--------+ + + + + documented as of this encounter Visit Diagnoses Not on filedocumented in this encounter"
--- OUTSIDE RECORDS SUMMARY | ~2019-10-16 | XMS | Encounter Summary ---
Demographics + + + | Address | [address] | | | [place] [address] | + + + | Home Phone [...] Providers + +------+ + | Care Hospital Pharmacy Technician Name | Role | Phone [...] | | | [facility] | [place], [place] | | | | | [address] | [address] | | | | | [address] | [phone] | | | | | [facility] | | | | | | Physician's | | | | | | Pavilion [place], | | | | | | [place] [address] | | | | | | [phone] | | | +--------+--------+ + + + [...]
--- OUTSIDE RECORDS SUMMARY | ~2019-10-16 | XMS | Encounter Summary ---
Demographics + + + | Address | [address] | | | [place] [address] | + + + | Home Phone [...] Team Providers + +------+ + | Care Analytics Associate Name | Role | Phone | + +------+ + | Pedrito Gutierrez MD | PCP | | + +------+ + Reason for Visit +--------+ + | Reason | Comments | +--------+ + | Pain | | +--------+ + Encounter Details +--------+---------+ + + + | Date | Type | Department | Care Team | Description | +--------+---------+ + + + | 03/14/ | Office | [facility] | RileyDelfina joaquin, | Spondylosis with | | 2006 | Visit | Pain Center at | ANP | Myelopathy, Lumbar | | | | [facility] | | Region; Herniated | | | | [address] | | Lumbar | | | | Mailcode: CH15P | | Intervertebral Disc | | | | [facility] | | L4-5; Neck Pain; DJD | | | | and Healing, | | (Degenerative Joint | | | | Building | | Disease) of Left | | | | Floor [place], [place] | | Knee; Right shoulder | | | | [address] | | rotator cuff | | | | [phone] | | strain; Major | | | | | | Depressive Disorder, | | | | | | Recurrent Episode, | | | | | | Moderate (HCC); | | | | | | Adjustment Disorder | | | | | | with Anxiety; | | | | | | Depression; Migraine | | | | | | Headache; Chronic | | | | | | [...] + + + | Blood Pressure | 122/78 | 08/26/2006 9:05 AM | | | | | PDT | | + + + + + | Pulse | 80 | 08/26/2006 9:05 AM | | | | | PDT | | + + + + + | Temperature | 36.8 C (98.3 F) | 08/26/2006 9:05 AM | | | | | PDT | | + + + + + | Respiratory Rate | 16 | 08/26/2006 9:05 AM | | | | | PDT | | + + + + + | Oxygen Saturation | - | - | | + + + + + | Inhaled Oxygen | - | - | | | Concentration | | | | + + + + + | Weight | 95 kg (209 lb 8 oz) | 08/26/2006 9:05 AM | | | | | PDT | | + + + + + | Height | 175.3 cm (5' 9") | 08/26/2006 9:05 AM | | | | | PDT | | + + + + + | Body Mass Index | 30.94 | 08/26/2006 9:05 AM | | | | | PDT | | + + + + + documented in this encounter Patient Instructions Patient Instructions 08/26/2006 10:10 AM PDT 1. Discontinue MSIR Starting am of 08/27/06 Apply to area of clean, dry, hairless skin one Fentanyl 12mcg/hr pa tch best applied to breast or shoulder (front or back, arms are OK), and hold in place for 2 -3 minutes with your hand to maximize adherence to your skin. After 72 hours, remove the pat ch, fold sticky side in, and flush down toilet (or dispose of securely). Then apply the next patch. Do not use any lotions, creams, or skin cleansers (aside from soap), such as alcohol, on s kin where patch is to be applied. If a patch begins to fall off before it is to be removed, you may use an occlusive dressin g (such as Tegaderm - talk to your pharmacist about obtaining these) or tape that your skin can tolerate to keep it on. DO NOT CUT OR DAMAGE THESE PATCHES BEFORE USING THEM! DO NOT APPLY DIRECT HEAT OR SOAK IN A HOT TUB WITH THESE ON! KEEP IN A LOCKED CUPBOARD, OUT OF THE REACH OF CHILDREN! Make sure you rotate the location of the patches, so you do not apply a patch to an area t hat has had a patch within the previous 6 days. 2. May continue with Franklin NTE 4 per day as prescribed 3. Continue with PT and PSychology as scheduled 4. Follow up to review medications on 09/09/06 and call with any concerns or questions. 5. Continue with Trileptal 150mg 1 1/2 tablet twice a day documented in this encounter Progress Notes Delfina Molina - 08/26/2006 9:44 AM PDTFormatting of this note might be different from th jennifer original. 08/26/2006 Belinda Meehan is a 46 y.o. female [facility] Pain Center Return Visit Chief Complaint: Chief Complaint Patient presents with Pain History of Present Illness: Belinda Meehan is a 46 y.o. year-old female with a history of chronic pain due to degenerative spine disease, abdominal pain, fibromyalgia and right rot ator cuff injury. Belinda reports pain in her left knee and having seen Dr. Morales in orth opedics at [facility], she reports that surgery is not an option until she has tried weight loss a nd rehabilitation, otherwise she is a potential candidate for arthroplasty. Belinda is here today for a follow up visit, and reports no change in her chronic pain since prior visit. She reports that her headaches have decreased in frequency and intensity sinc e increasing her trileptal to 225mg bid she deneis any adverse side effect to this medicatio n. She reports a trial of oral morphine causing leg swelling and since stopping the morphi ne, leg swelling has resolved. Belinda has been using Franklin 10/325 an average of 5 tablets per day. 1 tablet has an effecti ve duration of 5 hours "pain breaks through at about 4 hours", she reports taking a Franklin ev eduardo 5 hours. She denies any adverse effects such as constipation urinary retention, sedati on or cognitive changes. She has not tried methadone, oxycodone or fentanyl long acting opi oids in the past. Dr. Gutierrez does not want to manage a patient on methadone. This leaves ox ycodone or fentanyl options. Pain aggravating and alleviating factors are unchanged since prior visit. Physical therapy has been addressing her back and neck pain, her left knee has been problematic with instabil ity, falling and pain, she is going to ask PT to address this pain with her next visit today . She reports sleeping better as headaches are no longer waking her, she reports being hopefu l that her pain will improve more being treated and seeing improvements so far. There have been no reported new procedures, diagnostic studies or changes in medical care s joycelyn prior visit. Liver function in questions "enzymes up and down for years", has been scr eend for Hep B and C, denies alcohol use. Belinda Meehan was compliant with all aspects of chronic opioid therapy , is using the me dication as directed, demonstrates benefits, and has no serious adverse effects. There were no significant cognitive or mood impairments. There is no evidence of diversion past or pre sent. Current outpatient prescriptions Medication Sig Dispense Refill NORCO 10 MG-325 MG TAB take 1 tablet by oral route every 4-6 hours as needed for pain ACTONEL 35 MG TAB take 1 tablet (35mg) by oral route once weekly in the morning, at dona st 30 minutes before the first food, beverage, or medication of the day TRILEPTAL 150 MG TAB 1 tablet bid CYANOCOBALAMIN 1,000 MCG TAB 1 x monthly MULTI VIT-FLUORIDE OR None Entered PROMETHAZINE 25 MG TAB once daily CALCIUM + D 600 MG-200 UNIT TAB 4 tabs daily Side effects: leg swelling with morphine Past Medical History Diagnosis Date CHRONIC ABDOMINAL [...] Information Collection Date Collection Time Resulting Agency 07/30/2006 4:00 PM [facility] DEPARTMENT OF PATHOLOGY Component Results Component Value Range Status GLUCOSE (LAB) 92 65 - 110 mg/dL Fin BUN 13 6 - 20 mg/dL Fin CREATININE 0.7 0.6 - 1.1 mg/dL Fin TOTAL PROTEIN 7.0 6.1 - 7.9 g/dL Fin ALBUMIN (LAB) 3.9 3.5 - 4.7 g/dL Fin CALCIUM (LAB) 9.3 8.5 - 10.5 mg/dL Fin BILIRUBIN TOTAL 0.5 0.3 - 1.2 mg/dL Fin ALK PHOS 110 (H) 42 - 98 U/L Fin AST(SGOT) 25 15 - 41 U/L Fin SODIUM (LAB) 139 136 - 145 mmol/L Fin POTASSIUM (LAB) 3.7 3.5 - 5.1 mmol/L Fin CHLORIDE 103 98 - 107 mmol/L Fin TOTAL CO2 26 23 - 29 mmol/L Fin ALT (SGPT) 21 13 - 48 U/L Fin Physical examination: BP 122/78 | Pulse 80 | Temp (Src) 98.3 F (36.8 C) (Oral) | Resp 16 | Ht 1.753 m (5' 9") | Wt 95.029 kg (209 lbs 8.0 oz) Body mass index is 30.94 kg/(m^2). General appearance: Appears healthy. Alert; in no acute distress. Pleasant. 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 1. Discontinue MSIR Starting am of 08/27/06 Apply to area of clean, dry, hairless skin one Fentanyl 12mcg/hr pat ch best applied to breast or shoulder (front or back, arms are OK), and hold in place for 2- 3 minutes with your hand to maximize adherence to your skin. After 72 hours, remove the pat ch, fold sticky side in, and flush down toilet (or dispose of securely). Then apply the nex t patch. Do not use any lotions, creams, [...] a patch within the previous 6 days. 2. May continue with Franklin NTE 4 per day as prescribed 3. Continue with PT and Psychology as scheduled. 4. Continue with Trileptal 150mg 1 1/2 tablet twice a day 5. Follow up to review medications on 09/09/06 and call with any concerns or questions. DELFINA MOLINA [facility] Comprehensive Pain Center Mail code CH 4P [facility] and [address] [address] Ailyn Foster - 08/27/19 9:09 AM PDTCMA History: PMH/PSH/SH/FH review 1. Has [...] Do your medications cause any side effects? Yes morphine made legs swell up stopped amaris ing 7. Have you had physical therapy appointments since your last visit? no 8. Have you had psychology appointments since your last visit? no 9. Have you had any diagnostic studies since your last appointment? no 10. Do you require any medication refills today? yes [facility] Plan of Treatment Not on filedocumented as of this encounter Visit Diagnoses + + | Diagnosis | + + | Spondylosis with myelopathy, lumbar region | + + | Herniated Lumbar Intervertebral Disc L4-5 Displacement of lumbar intervertebral disc | | without myelopathy | + + | Neck pain Cervicalgia | + + | 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 Osteoarthrosis, unspecified whether | | generalized or localized, lower leg | + + | Right shoulder rotator cuff strain Injury, other and unspecified, shoulder and upper | | arm | + + | Major depressive disorder, recurrent episode, moderate (HCC) Major depressive | | disorder, recurrent episode, moderate | + + | Adjustment disorder with anxiety | + + | Depression Depressive disorder, not elsewhere classified | + + | Migraine headache Migraine, unspecified, without mention of intractable migraine | | without mention of status migrainosus | + + | Chronic abdominal pain Abdominal pain, unspecified site | + + | Fibromyalgia syndrome 729.1 Mylagia and myositis, unspecified | + + documented in this encounter
--- OUTSIDE RECORDS SUMMARY | ~2019-10-16 | XMS | Encounter Summary ---
Demographics + + + | Address | [address] | | | [place] [address] | + + + | Home Phone [...] Providers + +------+ + | Care Certified Scrum Master Name | Role | Phone | + [...] | 02/05/ | Office | PM SE [facility]IA[facility] | Joe, | Chronic low back | | 2015 | Visit | PHYSIATRY [address] | MARY Montero [address] | pain (Primary Dx); | | | | [address] | [address] | SCOLIOSIS , | | | | [place] | [place] [address] | IDIOPATHIC; Lumbar | | | | [address] | [phone] | radiculopathy | | | | [phone] | | primarily right; S/P | | [...] blood sugars if you a re diabetic. long term risk can lead to osteoporosis which is [...] were performed by a Dr. García in [place]. The patient is unable to take NSAID's [...] visit. ALLERGIES: Allergies Allergen Reactions Amitriptyline Hcl Qblprwpmmw-Zuwg-Lbimkwzj Cephalexin Ciprofloxacin Clarithromycin Clindamycin Hcl Codeine Sulfate [...] has no apparent deficits with short or long-term memory. She has appropriate fund of knowledge [...] PT (multiple sessions over the years) and rn critical care. Unfortunately she nelly nues to have significant [...] she is starting physical therapy again in [place]. 5. I will see the patient 2 weeks after the injection. She knows if conservative measures fail she may need surgery again. ELECTRONICALLY SIGNED BY: Kylah Diaz PA-C, 02/05/2015 SUPERVISING PHYSICIAN: Carlos Hsieh MD, who was present in the clinic today CC: Emmy documented in t his encounter Plan of Treatment +--------+ + + [...] Petrona | | | | | | [facility] [address] [place] | | | | | | [place] [address] | | | | | | [phone] | | | | | | | | +--------+ + + + + | 12/20/ | Office | Audiology | Elisabet Munson MS | | | 2019 | Visit | | [facility] [address] | | | | | [address] [place] | | | | | | [place] [address] | | | | | | [phone] | | | | | | | | +--------+ + + + + | 12/20/ | Office | Otolaryngology | Ulysses Genao MD | | | 2019 | Visit | | [address] [place] | | | | | | [address] [place], | | | | | | [place] [address] | | | | | | [phone] | | | | | | | [...] 720.0 Belinda Meehan presents to the | [facility] | | fluoroscopy suite for fluoroscopically guided bilateral sacroiliac [facility] | | joint steroid injections as [...] + + | Performing | Address | City/State/[facility] | Phone Number | | Organization | | | | + + + + + | [facility] | [address] | [place], [place] | [phone] | | [facility] | | [address] | | | - IMAGING | | [...] 720.0 Belinda Meehan presents to the | [facility] | | fluoroscopy suite for fluoroscopically guided bilateral sacroiliac [facility] | | joint steroid injections as [...] + + | [address] [facility] | [address] | [place] | [phone] | | [facility] | | [address] | | | - IMAGING | | [...]
--- OUTSIDE RECORDS SUMMARY | ~2019-10-16 | XMS | Encounter Summary ---
Demographics + + + | Address | [address] | | | [place] [address] | + + + | Home Phone [...] Providers + +------+ + | Care Block Mechanic Name | Role | Phone | [...] | | | Metabolism | bypass | [address] | [address] | | | | | Hypovitamino | [address], | Ave | | | | | sis D [address] | [address] | [place], [place] | | | | | nutritional | [place], [place] | [address] | | | | | deficiency | [address] | Phone: | | | | | Other | Phone: | [phone] | | | | | protein-jose manuel | [phone] | Fax: | | | | | nick | Fax: | [phone] | | | | | malnutrition | [phone] | | | | | | Weight | | | | | | | gain | | | | | | | Procedures | | | | | | | CONSULT TO | | | | | | | ENDO | | | | | | | [address] | | | | | | | [address] | | | +--------+--------+ + + + [...] | | | [facility] | [place], [place] | Dx); Hypothyroidism; | | | | [address] | [address] | Essential | | | | [address] | [phone] | hypertension 401.9; | | | | [facility] | | Secondary | | | | Physician's | | hyperparathyroidism, | | | | [facility]ilion [place], | | non-renal (HCC) | | | | [place] [address] | | | | | | [phone] | | | +--------+---------+ + + + [...] 32.9 (L) RDW 11.5-15.0 % 12.4 PLATELET FU267-660 K/cu mm 205 IRON 30-160 ug/dL 114 [...] like the sleeve but was told by [facility] PACKING OPERATOR that it is not an option, recommended pharmacologic weight mgmt. Gets primary care in [place], [place] (Maria Esther Cintron). Weight leveled out [...] replacement 08/2007 right knee Lumbar fusion 05/2008 L5-N3ngqerl with bone spur removals Appendectomy Cholecystectomy section [...] Hives Mainly in the legs Clindamycin Codeine Fuzwvbd-Egjpnenirv-Qat-Caff Balance problems Fioricet W/Codeine (Kayrzpfrfw-Asfjmgflro-Gxv-Cod) Keflex (Cephalexin) Morphine IM ( only in [facility]) made gut pain worse 08/27/06: Trial of [...] Ly Allred MD R-2, Internal Medicine Pager: [phone] documented in this enco unter Plan of [...] | | If you are | | [place] | | | | screening for diabetes: [...] + | [facility] - | [address] | [place] [address] | | | [place] | | | [...] [facility] | [address] | [place] [address] | | | SERVICES, SPECIAL | [place] [...] | + + + + + | [facility] | [address] | [place] [address] | | | SERVICES, CORE | PARK [...] | + + + + + | [facility] | [address] | [place] [address] | | | SERVICES, SPECIAL | KEAGAN [...] by | | | | | | [employer],[address] | | | | | | Abdiaziz Morales, [facility] | | | | | | [address] | | | | | | [phone].[employer]. | | | | | | [facility], [employer], | | | | [...] [facility] | [address] | [place], [place] | | | [facility] | | [address] | | + + + + + [...] | + + + + + | [facility] | [address] | [place] [address] | | | SERVICES, SPECIAL | PARK [...] + | [facility] | [address] | [place] [address] | | | [place] | | | [...]
--- OUTSIDE RECORDS SUMMARY | ~2019-10-16 | XMS | Encounter Summary ---
Demographics + + + | Address | [address] | | | [place] [address] | + + + | Home Phone [...] + + +---------+ + | Marco Antonio eWlls | ECON | Unknown | | + + +---------+ + Care Team Providers + +------+ + | Care Dentistry Professor Name | Role | Phone | + +------+ + PCP | Unavailable | + +------+ + Encounter Details +--------+ + + + + | Date | Type | Department | Care Team | Description | +--------+ + + + + | 09/14/ | Hospital | [facility] | Ruben Tobias | | | 2001 | Encounter | MED CTR SLEEP | MD Raji [address] | | | | | [place] [address] | [address] [facility] | | | | | [place], [place] | [place] [address] | | | | | [address] | [phone] | | | | | [phone] | | | +--------+ + + + [...] | | | | | [place] [address] | | | | | | [phone] | | | | | | | | +--------+ + + + + | 12/20/ | Office | Audiology | Elisabet Munson MS | | | 2019 | Visit | | [facility] | | | | | | [place] [address] [place] | | | | | | [place] [address] | | | | | | [phone] | | | | | | | | +--------+ + + + + | 12/20/ | Office | Otolaryngology | Ulysses Genao MD | | | 2020 | Visit | | [address] [facility] | | | | | | [address] [place], | | | | | | [place] [address] | | | | | | [phone] | | | | | | | | +--------+ + + + + documented as of this encounter Visit Diagnoses Not on filedocumented in this encounter"
--- OUTSIDE RECORDS SUMMARY | ~2019-10-16 | XMS | Encounter Summary ---
Demographics + + + | Address | [address] | | | [place] [address] | + + + | Home Phone [...] Team Providers + +------+ + | Care Button Pusher Name | Role | Phone | + [...] | at [place] | [facility] | | | | | [address] | [place] [address] | | | | | [address] | | | | | | [place], 2nd floor | | | | | | [place], [place] | | | | | | [address] | | | | | | [phone] | | | +--------+ + + + [...]
--- OUTSIDE RECORDS SUMMARY | ~2019-10-16 | XMS | Encounter Summary ---
Demographics + + + | Address | [address] | | | [place] [address] | + + + | Home Phone [...] Team Providers + +------+ + | Care Detail Maker And Fitter Name | Role | Phone | [...] | [facility] [address] [place], | Region; Herniated | | | | Mychal Kovacs Mailcode: | [place] [address] | Lumbar | | | | CH15P [place] [facility] | | Intervertebral Disc | | | | [facility], | | L4-5; Neck Pain; | | | | | | Fibromyalgia | | | | Floor [place], [place] | | syndrome 729.1 | | | | [address] | | | | | | [phone] | | | +--------+---------+ + + + [...] Medicare Progress Note Date: 08/26/2006 Belinda Meehan [id number]. 1960 Start of Care: 06/23/2006 Referring Provider: [...] and when she is finished at the [facility] with physical therapy advised to become [...] + + +--------+ + + | MS THERAPEUTIC | Procedures | Routin | Spondylosis [...]
--- OUTSIDE RECORDS SUMMARY | ~2019-10-16 | XMS | Encounter Summary ---
Demographics + + + | Address | [address] | | | [place] [address] | + + + | Home Phone [...] Team Providers + +------+ + | Care Area Captain Name | Role | Phone | + +------+ + | Pedrito Gutierrez MD | PCP | | + +------+ + Reason for Visit +--------+ + | Reason | Comments | +--------+ + | Other | pt having surg next month | +--------+ + Encounter Details +--------+ + + + + | Date | Type | Department | Care Team | Description | +--------+ + + + + | 12/09/ | Telephone | [facility] | Chris Padgett, | Other (pt having | | 2007 | | Center [address] | [address] | surg next month) | | | | Ave Mailcode: CH4S | Naeem Mcrae | | | | | [facility] | [place], [place] | | | | | and Healing, | [address] | | | | | [facility] | [phone] | | | | | Floor [place], [place] | | | | | | [address] | | | | | | [phone] | | | +--------+ + + + [...]
--- OUTSIDE RECORDS SUMMARY | ~2019-10-16 | XMS | Encounter Summary ---
Demographics + + + | Address | [address] | | | [place] [address] | + + + | Home Phone [...] Team Providers + +------+ + | Care Bunch Breaker Machine Operator Name | Role | Phone [...] + + | 10/05/ | Telephone | [facility] | Alanis, | Appointment Question | | 2018 | | MEDICINE [address] [place] [address] | MD Petrona | | | | | [facility] | [address] [place] [address] | | | | | [place] [address] | [place] [address] | | | | | [phone] | [phone] | | | | | | | [...] | | | | | [place] [address] | | | | | | [phone] | | | | | | | | +--------+ + + + + | 12/20/ | Office | Audiology | Elisabet Munson MS | | | 2019 | Visit | | [facility] [address] | | | | [address] [place] | | | | | | [place] [address] | | | | | | [phone] | | | | | | | | +--------+ + + + + | 12/20/ | Office | Otolaryngology | Ulysses Genao MD | | | 2019 | Visit | | [address] | | | | | | [address] [place], | | | | | | [place] [address] | | | | | | [phone] | | | | | | | | +--------+ + + + + documented as of this encounter Visit Diagnoses Not on filedocumented in this encounter"
--- OUTSIDE RECORDS SUMMARY | ~2019-10-16 | XMS | Encounter Summary ---
Demographics + + + | Address | [address] | | | [place] [address] | + + + | Home Phone [...] Team Providers + +------+ + | Care Poultry Boner Name | Role | Phone | + +------+ + | Petrona Thapa | PCP | | | MD | | | + +------+ + Reason for Visit + + + | Reason | Comments | + + + | Pain Management | Sees pain clinic in [facility], Was switched to Simran 150mc | | [...] | Acquired | | | | [place] [address] | [place] [address] | hypothyroidism; | | | | [phone] | [phone] | Chronic bilateral | | | | [...] with Pain Management Sees pain clinic in [facility], Was switched to Belbuca 150 Transbuccal every 12 hrs Results, Imaging HPI Belindavera Meehan is a 57 y.o. y/o female who presents today for f/u for several issues: Has had a visit w/ the pain in the [facility], [place], and they gave her a trial of [...] and has been on monthly B12 in [facility] for the last several months. REVIEW [...] (See Comments) Confused and questionable for seizures Dczlpemclm-Dqrs-Oorgrlao Cephalexin Hives Ketorolac Hives Morphine Swelling Tramadol Hcl Nausea Only Myceqaaquo-Hazo-Jxobyiea Hives and Rash Ciprofloxacin Hives and Rash [...] Note: Parts of this documentwere created using [employer] speech recognition software. As a r [...] | | | | | [place] [address] | | | | | | [phone] | | | | | | | | +--------+ + + + + | 12/20/ | Office | Audiology | Elisabet Munson MS | | | 2019 | Visit | | [facility] [address] | | | | [address] [place] | | | | | | [place] [address] | | | | | | [phone] | | | | | | | | +--------+ + + + + | 12/20/ | Office | Otolaryngology | Ulysses Genao MD | | | 2019 | Visit | | [address] | | | | | | [address] [place], | | | | | | [place] [address] | | | | | | [phone] | | | | | | | [...]
--- OUTSIDE RECORDS SUMMARY | ~2019-10-16 | XMS | Encounter Summary ---
Demographics + + + | Address | [address] | | | [place] [address] | + + + | Home Phone [...] Team Providers + +------+ + | Care Science Technician Name | Role | Phone | [...] Pavilion | | | | | | [place], [place] | | | | | | [address] | | | | | | [phone] | | | +--------+ + + + [...]
--- OUTSIDE RECORDS SUMMARY | ~2019-10-16 | XMS | Encounter Summary ---
Demographics + + + | Address | [address] | | | [place] [address] [...] + + + | Author | [facility] | | | and Jairana | + + + | Organization | [facility] | | | [...] Team Providers + +------+ + | Care Protozoology Teacher Name | Role | Phone | [...] + + | 06/07/ | Refill | [facility] | Alanis, | Medication Refill | | 2017 | | MEDICINE [address] [place] [address] | MD Petrona | | | | | [facility] | [address] [place] [address] | | | | | [place] [address] | [place] [address] | | | | | [phone] | [phone] | | | | | | | [...] | | | | | [place] [address] | | | | | | [phone] | | | | | | | | +--------+ + + + + | 12/20/ | Office | Audiology | DarioElisabet ramires MS | | | 2019 | Visit | | [facility] [address] | | | | [address] [place] | | | | | | [place], [place] [address] | | | | | | [phone] | | | | | | | | +--------+ + + + + | 12/20/ | Office | Otolaryngology | Ulysses Genao MD | | | 2019 | Visit | | [address] | | | | | | [address] [place], | | | | | | [place] [address] | | | | | | [phone] | | | | | | | | +--------+ + + + + documented as of this encounter Visit Diagnoses Not on filedocumented in this encounter"
--- OUTSIDE RECORDS SUMMARY | ~2019-10-16 | XMS | Encounter Summary ---
Demographics + + + | Address | [address] | | | [place] [address] | + + + | Home Phone [...] Team Providers + +------+ + | Care Algologist Name | Role | Phone | + [...] | | unspecified | [place], [place] | [address] | | | | | laterality | [address] | Phone: | | | | | | Phone: | [phone] | | | | | | [phone] | Fax: | | | | | | Fax: | [phone] | | | | | | [phone] | | +--------+ + + + + [...] [place], | unspecified | | | | [place], [place] | [place] [address] | laterality (Primary | | | | [address] | [phone] | Dx) | | | | [phone] | | | +--------+ + + + [...] | | | | | [place] [address] | | | | | | [phone] | | | | | | | | +--------+ + + + + | 12/20/ | Office | Audiology | Elisabet Munson MS | | | 2019 | Visit | | [facility] | | | | | | [address] | | | | | | [place] [address] | | | | | | [phone] | | | | | | | | +--------+ + + + + | 12/20/ | Office | Otolaryngology | Ulysses Genao MD | | | 2020 | Visit | | [address] | | | | | | [address] [place], | | | | | | [place] [address] | | | | | | [phone] | | | | | | | | +--------+ + + + + + + +--------+ + + | Name | Type | Priori | Associated Diagnoses | Order Schedule | | | | ty | | | + + +--------+ + + | * [facility] [place] | Outpatient | Routin | Benign [...]
--- OUTSIDE RECORDS SUMMARY | ~2019-10-16 | XMS | Encounter Summary ---
Demographics + + + | Address | [address] | | | [place] [address] | + + + | Home Phone [...] Team Providers + +------+ + | Care Silo Worker Name | Role | Phone | [...] Densitometry | | MD Beto | Density [facility] | | | | | Osteoporosis | [address] | [address] | | | | | Procedures | Ave | [address] | | | | | CONSULT TO | [place], [place] | Rd Mailcode: | | | | | BONE | [address] | [address] | | | | | DENSITOMETRY | Phone: | [address] | | | | | | [phone] | [place], [place] | | | | | | Fax: | [address] | | | | | | [phone] | Phone: | | | | | | | [phone] | | | | | | | Fax: | | | | | | | [phone] | +--------+--------+ + + + + Encounter Details +--------+---------+ + + + | Date | Type | Department | Care Team | Description | +--------+---------+ + + + | 08/23/ | Office | Endocrinology, | Sjh, Bmd Dexa | Other Osteoporosis | | 2007 | Visit | Diabetes and | [address] [place] | (Primary Dx); | | | | Clinical Nutrition | [facility], | Symptomatic | | | | [address] [place] | [place] [address] | Menopausal or Female | | | | [facility] Mailcode: | | Climacteric States; | | | | [address] [place] | | Disorder of Bone | | | | [facility], [place] | | and Cartilage, | | | | [address] | | Unspecified | | | | [phone] | | | +--------+---------+ + + + [...] | | + +---------+--------+ + + | [facility] DXA BONE | Imaging | Routin | [...]
--- OUTSIDE RECORDS SUMMARY | ~2019-10-16 | XMS | Encounter Summary ---
Demographics + + + | Address | [address] | | | [place] [address] | + + + | Home Phone [...] Providers + +------+ + | Care Service Supervisor Name | Role | Phone [...] + | 07/28/ | Telephone | [facility] | Alanis, | Other | | 2020 | | MEDICINE [address] [place] [address] | MD Petrona | | | | | [facility] | [address] [place] [address] | | | | | [place] [address] | [place] [address] | | | | | [phone] | [phone] | | | | | | | [...] | | | | | | [address] [place] | | | | | | [place] [address] | | | | | | [phone] | | | | | | | | +--------+ + + + + | 12/20/ | Office | Audiology | Elisabet Munson MS | | 2019 | Visit | | [facility] [address] | | | | | | [address] [place] | | | | | | [place] [address] | | | | | | [phone] | | | | | | | | +--------+ + + + + | 12/20/ | Office | Otolaryngology | Ulysses Genao MD | | | 2020 | Visit | | [address] [facility] | | | | | | [address] [place], | | | | | | [place] [address] | | | | | | [phone] | | | | | | | | +--------+ + + + + documented as of this encounter Visit Diagnoses Not on filedocumented in this encounter"
--- OUTSIDE RECORDS SUMMARY | ~2019-10-16 | XMS | Encounter Summary ---
Demographics + + + | Address | [address] | | | [place] [address] | + + + | Home Phone [...] Providers + +------+ + | Care Certified Shorthand Reporter Name | Role | Phone | + +------+ + | Petrona Thapa | PCP | | | MD | | | + +------+ + Reason for Visit + + + | Reason | Comments | + + + | IV Medication | | + + + Encounter Details +--------+ + + + + | Date | Type | Department | Care Team | Description | +--------+ + + + + | 07/16/ | Telephone | [facility] | Alanis, | IV Medication | | 2017 | | MEDICINE [address] [place] [address] | MD Petrona | | | | | [facility] | [address] [place] [address] | | | | | [place] [address] | [place] [address] | | | | | [phone] | [phone] | | | | | | | [...] | | | | | [place] [address] | | | | | | [phone] | | | | | | | | +--------+ + + + + | 12/20/ | Office | Audiology | Elisabet Munson MS | | | 2019 | Visit | | [facility] [address] | | | | | [address] [place] | | | | | | [place] [address] | | | | | | [phone] | | | | | | | | +--------+ + + + + | 12/20/ | Office | Otolaryngology | Ulysses Genao MD | | | 2019 | Visit | | [address] | | | | | | [address] [place], | | | | | | [place] [address] | | | | | | [phone] | | | | | | | | +--------+ + + + + documented as of this encounter Visit Diagnoses Not on filedocumented in this encounter"
--- OUTSIDE RECORDS SUMMARY | ~2019-10-16 | XMS | Encounter Summary ---
Demographics + + + | Address | [address] | | | [place] [address] | + + + | Home Phone [...] Team Providers + +------+ + | Care Regulatory Submissions Specialist Name | Role | Phone | [...] + + | 11/16/ | Telephone | [facility] | Alanis, | Lab Results | | 2019 | | MEDICINE [address] [place] [address] | MD Petrona | | | | | [facility] | [address] [place] [address] | | | | | [place] [address] | [place] [address] | | | | | [phone] | [phone] | | | | | | | [...] | | | | [facility] [address] | | | | | | [place] [address] | | | | | | [phone] | | | | | | | | +--------+ + + + + | 12/20/ | Office | Audiology | Elisabet Munson MS | | 2019 | Visit | | [facility] [address] | | | | | [address] [place] | | | | | | [place] [address] | | | | | | [phone] | | | | | | | | +--------+ + + + + | 12/20/ | Office | Otolaryngology | Ulysses Genao MD | | | 2020 | Visit | | [address] | | | | | | [address] [place], | | | | | | [place] [address] | | | | | | [phone] | | | | | | | | +--------+ + + + + documented as of this encounter Visit Diagnoses Not on filedocumented in this encounter"
--- OUTSIDE RECORDS SUMMARY | ~2019-10-16 | XMS | Encounter Summary ---
Demographics + + + | Address | [address] | | | [place] [address] | + + + | Home Phone [...] Team Providers + +------+ + | Care Stamping Mill Tender Name | Role | Phone | [...]
--- OUTSIDE RECORDS SUMMARY | ~2019-10-16 | XMS | Encounter Summary ---
Demographics + + + | Address | [address] | | | [place] [address] | + + + | Home Phone [...] Providers + +------+ + | Care Manager Life Insurance Name | Role | Phone | + [...] | Visit | [facility] [address] | MASKING MACHINE OPERATOR | Disc Disease; | | | | [address] | | Fibromyalgia | | | | Physician's | | | | | | Pavilion, 4th Floor | | | | | | [place], [place] | | | | | | [address] | | | | | | [phone] | | | +--------+---------+ + + + [...] much of the LBP is gone. Dr. Rciky smith Westby was her surgeon. She think s a [...] 300 mg) by oral route once daily zzlavmgmxx-mdfxqncqatrps-ljuinfgd (FIORICET) 50-325-40 mg Oral Tablet take 2 [...] | + + +--------+ + + | MA INJECT TRIGGER | Procedures | Routin | [...]
--- OUTSIDE RECORDS SUMMARY | ~2019-10-16 | XMS | Encounter Summary ---
Demographics + + + | Address | [address] | | | [place] [address] | + + + | Home Phone [...] Team Providers + +------+ + | Care Allergist Immunologist Name | Role | Phone | + [...] as of this encounter Progress Notes Interface, Cash Control Specialist In - 09/13/2005 2:06 AM PST [id number] [facility] Date: 01/02/2005 Clinic: Endocrinology [...] months. Beto Meeks M.D. PD / HS [id number] / [id number] / [id number] / [id number] cc: Chris Padgett M.D. Electronically signed by Beto Meeks 09-12-2005 02:22:56 AM documented i n this encounter Plan of Treatment Not on filedocumented as of this encounter Visit Diagnoses Not on filedocumented in this encounter"
--- OUTSIDE RECORDS SUMMARY | ~2019-10-16 | XMS | Encounter Summary ---
Demographics + + + | Address | [address] | | | [place] [address] | + + + | Home Phone [...] Providers + +------+ + | Care Clinical Research Physician Name | Role | Phone | + +------+ + | Pedrito Gutierrez MD | PCP | | + +------+ + Reason for Visit + + + | Reason | Comments | + + + | Erroneous Encounter | ERROR | | - Disregard | | + + + Encounter Details +--------+ + + + + | Date | Type | Department | Care Team | Description | +--------+ + + + + | 03/19/ | Telephone | [facility] Division of | Carlos Arreola, | Erroneous Encounter | | 2005 | | Gastroenterology/Hep | [address] | - Disregard (ERROR) | | | | atology [address] | [address] | | | | | [address] | [place] [address] | | | | | Mailcode: [id number] | [phone] | | | | | [facility] | | | | | | [address] | | | | | | [place], [place] | | | | | | [address] | | | | | | [phone] | | | +--------+ + + + [...]
--- OUTSIDE RECORDS SUMMARY | ~2019-10-16 | XMS | Encounter Summary ---
Demographics + + + | Address | [address] | | | [place] [address] | + + + | Home Phone [...] Team Providers + +------+ + | Care Orthotic And Prosthetic Technician Name | Role | Phone | [...]
--- OUTSIDE RECORDS SUMMARY | ~2019-10-16 | XMS | Encounter Summary ---
Demographics + + + | Address | [address] | | | [place] [address] | + + + | Home Phone [...] Providers + +------+ + | Care Automotive Services Manager Name | Role | Phone [...] as of this encounter Progress Notes Interface, Gas Truck Driver In - 10/15/2005 2:06 AM PDT [id number] [facility] Date: 09/18/2005 Clinic: Ms. [...] about a month. Chris Padgett M.D. / [id number] / [id number] / [id number] / [id number] Electronically signed by Chris Padgett 10-14-2005 08:13:46 AM documented i n this encounter Plan of Treatment Not on filedocumented as of this encounter Visit Diagnoses Not on filedocumented in this encounter"
--- OUTSIDE RECORDS SUMMARY | ~2019-10-16 | XMS | Encounter Summary ---
Demographics + + + | Address | [address] | | | [place] [address] | + + + | Home Phone [...] Team Providers + +------+ + | Care Recruiting Specialist Name | Role | Phone | [...] | | Essential | | | | [place], [place] | | hypertension 401.9; | | | | [address] | | Type II or | | | | [phone] | | unspecified type | | | [...] | | | LABORATORY | | | T[place] | | | SERVICES, | | | [...] | + + + + + | [facility] | [address] | [place] [address] | | | SERVICES, CORE | [address] [...] + + + + + | [facility] | [address] | [place] [address] | | | SERVICES, CORE | [address] [...] | | If you are | | [place] | | | | screening for diabetes: [...] + | [facility] | [address] | [place] [address] | | | [place] | | | [...] [facility] | [address] | [place] [address] | | | SERVICES, SPECIAL | P[facility] [...] HOSPITAL LABORATORY | [address] | [place] [address] | | | SERVICES, CORE | [address] [...] [facility] | [address] | [place] [address] | | | SERVICES, SPECIAL | [address] [...] by | | | | | | [address] | | | | | | Abdiaziz Morales, [facility],[place] | | | | | | [address] | | | | | | [phone].[employer]ap[employer]. | | | | | | Get [...] [facility] | [address] | [place], [place] | | | [facility] | | [address] | | + + + + + [...] | + + + + + | [facility] | [address] | [place] [address] | | | SERVICES, SPECIAL | [address] [...] + | [facility] | [address] | [place] [address] | | | [place] | | | | + + + [...]
--- OUTSIDE RECORDS SUMMARY | ~2019-10-16 | XMS | Encounter Summary ---
Demographics + + + | Address | [address] | | | [place] [address] | + + + | Home Phone [...] Providers + +------+ + | Care Drapery Installer Name | Role | Phone | [...]
--- OUTSIDE RECORDS SUMMARY | ~2019-10-16 | XMS | Encounter Summary ---
Demographics + + + | Address | [address] | | | [place] [address] | + + + | Home Phone [...] Team Providers + +------+ + | Care Grades 1 Thru 6 Visiting Teacher Name | Role | Phone | [...] | +--------+ + + + + | 02/09/ | Telephone | [facility] | Alanis, | Other | | 2019 | | MEDICINE [address] [place] [address] | MD Petrona | | | | | [facility] | [address] [place] [address] | | | | | [place] [address] | [place] [address] | | | | | [phone] | [phone] | | | | | | | [...] | | | | | [place] [address] | | | | | | [phone] | | | | | | | | +--------+ + + + + | 12/20/ | Office | Audiology | Elisabet Munson MS | | 2019 | Visit | | [facility] [address] | | | | [address] [place] | | | | | | [place] [address] | | | | | | [phone] | | | | | | | | +--------+ + + + + | 12/20/ | Office | Otolaryngology | Ulysses Genao MD | | | 2020 | Visit | | [address] [facility] | | | | | | [address] [place], | | | | | | [place] [address] | | | | | | [phone] | | | | | | | | +--------+ + + + + documented as of this encounter Visit Diagnoses Not on filedocumented in this encounter"
--- OUTSIDE RECORDS SUMMARY | ~2019-10-16 | XMS | Encounter Summary ---
Demographics + + + | Address | [address] | | | [place] [address] | + + + | Home Phone [...] Team Providers + +------+ + | Care Mussel Opener Name | Role | Phone | + [...] as of this encounter Progress Notes Interface, Airplane Rigger In - 01/11/2005 7:39 PM PDT Referred [...] 3-6 months time. She is coming from [place] so this can be scheduled on the same day of her physician visit. General surgery can schedule this. 5. Indra's business card with contact information for questions. Sveltana Maki R.D., LKyrie. SR/y39 P [phone] cc: documente d in this encounter Plan of Treatment Not on filedocumented as of this encounter Visit Diagnoses Not on filedocumented in this encounter"
--- OUTSIDE RECORDS SUMMARY | ~2019-10-16 | XMS | Encounter Summary ---
Demographics + + + | Address | [address] | | | [place] [address] | + + + | Home Phone [...] Providers + +------+ + | Care Manager Hotel Name | Role | Phone | + [...] + + | 06/22/ | Office | [facility] | Delfina Molina, | Herniated Lumbar [...] | Dependence, | | | | Floor [place], [place] | | Continuous ([facility]); | | | | [address] | | Major Depressive | | | | [phone] | | Disorder, Recurrent | | | | | | Episode, Moderate | | | | | | ([facility]); Adjustment | | | | | [...] Belinda Meehan is a 46 y.o. female [facility] Return Visit Chief Complaint: [...] the past week of Fentanyl patch and [place]. Trileptal he lps with right leg pain and sleep. "been sleeping great". Expectations for this visit include : discussing the sticking problems with the fentanyl pa tc and her insurance not being willing prescribe [place]. There have been no other change in [...] an d her insurance stopped coverage of [place]. I believe doing pool therapy three times [...] might be d iverting or using her [place]? Until I know more I will not be prescribing a breakthrough sina n medication but am willing to prescribe early for her fentanyl. I have asked Belinda to metal pickling equipment operator and be responsible for her own medication metal pickling equipment operator. I discussed with Tasha Nolasco CMA the issue of Insurance PA for [place] this was in progress as of the time the patient was here. At the time I completed this note we had word that Ins urance would not approve coverage. I will discuss this with Belinda once I know her story o n where the dispensed #70 [place] is. [ Tasha reported calling [employer] who reported: Belinda's s on picking up [...] with each exchange. 3. Patient instructed to metal pickling equipment operator and be responsible for her own medications. 4. Follow up in two weeks to review pain management. Once she is again stable on the fen tanyl patch I will transfer her prescribing to Dr. Gutierrez. She has completed the Multidisci plinary patient Care program here at the [facility]. DELFINA MOLINA [facility] Mail code CH [facility] and [address] [address] Tasha Can - 12/04/2006 7:43 [...] | + + | Opioid dependence, continuous ([facility]) Opioid type dependence, continuous | + [...]
--- OUTSIDE RECORDS SUMMARY | ~2019-10-16 | XMS | Encounter Summary ---
Demographics + + + | Address | [address] | | | [place] [address] | + + + | Home Phone [...] Providers + +------+ + | Care Integration Technician Name | Role | Phone | [...] Medicine Clinic at | [facility] [address] | Other Specified | | | | [facility] 4th Floor Day | [address] | Pre-Operative | | | | Stay [address] | [place], [place] | Examination; HTN | | | | [address] | [address] | (Hypertension); | | | | Mailcode: [id number] | [phone] | Chronic Pain | | | | [facility] | | | | | | [address] [facility] [place] | | | | | | [address] | | | | | | [phone] | | | +--------+---------+ + + + [...] dietary restrictions or a bowel preparation. Your [facility] gical team will give you additional printed [...] the surgery. Please see the list below, romana negrete has a list of products that contain [...] PM please call your surgeons' office for [id number]. PARKING Parking for patients and visitors is available in the [facility] Parking structure located across from the emergency department. Patient parking is available on level 1 and 3. Metere d parking is available on the top [...] ADVICE FOR DAY OF SURGERY: Remove nail equatorial guinean from at least one fingernail (if applicable) [...] surgeries scheduled to take place on the alum bank at the [facility]: Surgeries scheduled in the [facility] ([address] [place] [address]): registration is located on the 4th floor of [facility] (Day Surgery). Surgeries scheduled in the [facility]: registration is located on the 9th floor . For surgeries scheduled to take place at the [facility]: registration i s located on the 4th floor (Surgery Center). AVOID THESE MEDICATIONS FOR 7 DAYS BEFORE SURGERY PRODUCTS CONTAINING ASPIRIN Jacquelyn-Scurry, Anacin, Anexsia with Codeine, Len nos, Aspirin, Aspirin suppositories, Ascri ptin, Aspergum, Axotal, B-A-C, Baby Aspirin, Lucila, BC Powder, Bexophene, Buffaprin, Bufferi n, Buffinol, Cama-Arthritis Strength, Congespirin, Phoenix, Coricidin, Damason, Darvon, Dristan , Anastasia-Gesic, Digel, Dolprin #3 Tablets, Donatab, Doxaphene, Duragesic, Easprin, Ecotrin, Dipika grin Forte, Emiprin, Emprazil, Equagesic, Equazine M, Excedrin, Fiogesic, Fiorgen PH, Fioric et, Fiorinal, 4-Way Cold Tablet Gemnisyn, Indocin, Liquprin, Lortab ASA, Magnaprin, Marnal, Meprobamate, Midol, Momentum, N orgesic, Woodland, Orphengesic, Pabalate, P-A-C, Percodan, Presalin, Robaxasil, Roxiprin, Bunny eto, Salocol SK-65 Compound, Sine-Aid, Sine-Off,, Solomons, Supac, Talwin Compound, Trigesic, Tolectin , Traiminicin, Vanquish, ZORprin, Zomax PRODUCTS CONTAINING IBUPROFEN Advil, Aleve, Haltran, Medipren, Midol, Motrin, Naproxyn, Nuprin, Rufen OTHER PRODUCTS WHICH MAY PROMOTE BLEEDING Vitamin E, Gingko Biloba, Marine Fatty Acids, [place]-3 Fish Oil Supplements documented in this encounter Progress Notes Tera Etienne - 02/21/2009 1:46 PM PDTSee Scanned H&P. [...] + + + | [facility] DEPARTMENT | [address] [facility] | [place] [address] | | | PATHOLOGY | [address] | | | + + + + + | [facility] DEPARTMENT OF | [address] [facility] | [place] [address] | | | PATHOLOGY | [address] [...] + + + | [facility] DEPARTMENT OF | [address] | [place] [address] | | | PATHOLOGY | [address] | | | + + + + + | [facility] DEPARTMENT | [address] | [place] [address] | | | PATHOLOGY | [address] [...] | | | DEPARTMENT | | | [place] | | | OF | | | [...] | + + + + + | [facility] | [address] | [place] [address] | | | PATHOLOGY | [address] | | | + + + + + | [facility] | [address] | [place] [address] | | | PATHOLOGY | [address] [...] + + + | [facility] DEPARTMENT OF | [address] | [place] [address] | | | PATHOLOGY | [address] | | | + + + + + | [facility] DEPARTMENT OF | [address] | [place] [address] | | | PATHOLOGY | [address] [...] + + + | Please click | [facility] | | on view image for the detailed interpretation from [employer] results. | CARDIOLOGY | | | | + + + + + + + + | Performing | Address | City/State/Zipcode | Phone Number | | Organization | | | | + + + + + | [facility] | [address] | [place], [place] | | | CARDIOLOGY | [address] | [address] | | + + + + + | [facility] | [address] | [place], [place] | | | CARDIOLOGY | [address] | [address] | | + + + + + [...]
--- OUTSIDE RECORDS SUMMARY | ~2019-10-16 | XMS | Encounter Summary ---
Demographics + + + | Address | [address] | | | [place] [address] | + + + | Home Phone [...] Team Providers + +------+ + | Care Aged Or Disabled Care Worker Name | Role | Phone [...] as of this encounter Progress Notes Interface, Gyroscopic Engineering Technician In - 12/11/2005 2:05 AM PDT [id number] GEOVANNI SKELTON [id number] Clinic Date: 11/27/2005 Clinic: Rheumatology Primary Care [...] 6 months. Caitlin Rivera M.S., F.N.P. / [id number] / [id number] / [id number] / [id number] cc: Pedrito Gutierrez M.D. [address] [place] [address] Electronically signed by Caitlin Rivera 12-10-2005 09:27:21 AM documented i n this encounter Plan of Treatment Not on filedocumented as of this encounter Visit Diagnoses Not on filedocumented in this encounter"
--- OUTSIDE RECORDS SUMMARY | ~2019-10-16 | XMS | Encounter Summary ---
Demographics + + + | Address | [address] | | | [place] [address] | + + + | Home Phone [...] Team Providers + +------+ + | Care Solderer Dipper Name | Role | Phone | + [...] | | | | Clinical Nutrition | [place], [place] | | | | | [address] | [address] | | | | | Loop Mailcode: [id number] | [phone] | | | | | Outpatient Clinic | | | | | | [facility] | | | | | | [place] [address] | | | | | | [phone] | | | +--------+ + + + [...] | + + + + + | [facility] | [address] | [place] [address] | | | LABORATORY | | | [...] | pg/mL | | | | | [facility] | | | | | | Laboratory. | | | | + + + + + + + + | Specimen | + + | | + + + + + + + | Performing | Address | City/State/Zipcode | Phone Number | | Organization | | | | + + + + + | [facility] | [address] | [place] [address] | | | LABORATORY | | | [...] + + | [facility] DEPARTMENT OF | [address] | [place] [address] | | | PATHOLOGY | [address] | | | + + + + + | [facility] DEPARTMENT OF | [address] | [facility] [place] [address] | | | PATHOLOGY | [address] [...] + + + + + | [facility] DEPARTMENT OF | [address] | [place] [address] | | | PATHOLOGY | [address] | | | + + + + + | [facility] DEPARTMENT OF | [address] | [place] [address] | | | PATHOLOGY | [address] | | | + + + + + documented in this encounter Visit Diagnoses Not on filedocumented in this encounter"
--- OUTSIDE RECORDS SUMMARY | ~2019-10-16 | XMS | Encounter Summary ---
Demographics + + + | Address | [address] | | | [place] [address] | + + + | Home Phone [...] Team Providers + +------+ + | Care Him Clerk Name | Role | Phone | [...] | Neurology | Diagnoses | [place], | [place], | | | | | Migraine | NIHARIKA Jean | Merari Lopez MD | | | | | headache | [address] | | | | | | Procedures | [address] | | | | | | CONSULT TO | [place], [place] | | | | | | NEUROLOGY | [address] | | +--------+--------+ + + + + [...] | (Primary Dx); | | | | [facility] | | Migraine Headache; | | | | [address] | | Opioid Dependence, | | | | Mailcode: CH15P | | Continuous (HCC); | | | [facility] | | Neck Pain; Right | | | | and Healing, | | shoulder rotator | | | | Building | | cuff strain; | | | | Floor [facility] [place] | | 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 Schedule Neurology evaluation [facility] order placed for Dr. Merari Mittal MD 4. Follow up 11/11/06 documented in this encounter Progress Notes Delfina Molina - 10/23/2006 1:20 PM PDTFormatting of this note might be different from th e original. 10/23/2006 Belinda Meehan is a 46 y.o. female [facility] Return Visit Chief Complaint: [...] car. She has not been seeing the [facility] PT , await ing the surgical plan for her left knee. MRI done, ordered by Dr. Ibarra who referred to Dr. Angel Morales for surgical opinion, scheduled for 10/28/06. She continues to see Dr. Alin adames at [facility] and reports benefit and would like to nelly salude she has two more scheduled visits. She reports Dr. Woodson referred her to neurologist locally for her migraine assessment how ever not being scheduled due to insurance [place] barriers. She is interested in being referred to a Dr. Merari Mittal [facility] neurlogy whom she has heard works with [...] Collection Time Resulting Agency 10/05/2006 9:20 AM [facility] DEPARTMENT OF RADIOLOGY Component Results MR KNEE [...] the free margin and undersurface of the erisa attorney horn of the medial meniscus suspicious for [...] the left knee 3. Schedule Neurology evaluation [facility] order placed for Dr. Merari Mittal MD 4. Follow up 11/11/06 to reivew pain management 5. Cntinue with PT and psychology as scheduled DELFINA MOLINA [facility] Mail code CH 4P [address] [address] iAgustin maciasndy - 10/23 12:47 [...]
--- OUTSIDE RECORDS SUMMARY | ~2019-10-16 | XMS | Encounter Summary ---
Demographics + + + | Address | [address] | | | [place] [address] [...] Team Providers + +------+ + | Care Cancer Researcher Name | Role | Phone | [...] as of this encounter Progress Notes Interface, Spiral Winding Machine Helper In - 01/13/2005 9:03 AM PDT [id number] GEOVANNI [facility] Date: 01/02/2005 Clinic: [facility] Subjective: Ms. Meehan presents today on a walk-in basis for evaluation of some discharge from her panniculectomy incisions over her medial thighs. She reports that she was in town today from [place], [place], to get some labs drawn at [facility] and decided to stop by the clinic [...] Sree Riley M.D. Chris Padgett M.D. / [id number] / [id number] / [id number] / [id number] C: 01/08/2005 cmw documented i n this encounter Plan of Treatment Not on filedocumented as of this encounter Visit Diagnoses Not on filedocumented in this encounter"
--- OUTSIDE RECORDS SUMMARY | ~2019-10-16 | XMS | Encounter Summary ---
Demographics + + + | Address | [address] | | | [place] [address] | + + + | Home Phone [...] Team Providers + +------+ + | Care Floorworker Lasting Name | Role | Phone | + [...] as of this encounter Progress Notes Interface, Dog Sitter In - 09/13/2005 2:06 AM PST [id number] GEOVANNI SKELTON [facility] Date: 07/03/2005 Clinic: [...] which are pending through the laboratory in [place]. Allergies: PENICILLIN, CODEINE, KEFLEX, SULFA, CIPRO, AND [...] which were done several days ago in [place]. Beto Meeks M.D. PD / HS [id number] / [id number] / [id number] / [id number] cc: Chris Padgett M.D. [facility] Electronically signed by Beto Meeks 09-12-2005 02:23:07 AM documented i n this encounter Plan of Treatment Not on filedocumented as of this encounter Visit Diagnoses Not on filedocumented in this encounter"
--- OUTSIDE RECORDS SUMMARY | ~2019-10-16 | XMS | Encounter Summary ---
Demographics + + + | Address | [address] | | | [place] [address] | + + + | Home Phone [...] Team Providers + +------+ + | Care Reformatory Attendant Name | Role | Phone | + +------+ + | Sulaiman Carrera MD | PCP | | + +------+ + Encounter Details +--------+ + + + + | Date | Type | Department | Care Team | Description | +--------+ + + + + | 09/10/ | Ancillary | Registration [id number] | Beto Meeks MD | | | 2004 | Registratio | [facility] | [address] | | | | n | [place] Mailcode: RPB07 | [place], [place] | | | | | [place], [place] | [address] | | | | | [address] | [phone] | | | | | [phone] | | | +--------+ + + + [...] | + + + + + | [facility] | [address] | [place] [address] | | | LABORATORY | | | [...] + + | [facility] | [address] [facility] | [place] [address] | | | PATHOLOGY | [address] | | | + + + + + | [facility] | [address] [facility] | [place] [address] | | | PATHOLOGY | [address] [...] + + + + + | [facility] DEPARTMENT OF | [address] | [place] [address] | | | PATHOLOGY | [address] | | | + + + + + | [facility] DEPARTMENT OF | [address] | [place] [address] | | | PATHOLOGY | [address] [...] + + + + + | [facility] DEPARTMENT OF | [address] | [place] [address] | | | PATHOLOGY | [address] | | | + + + + + | [facility] DEPARTMENT OF | [address] | [place] [address] | | | PATHOLOGY | [address] | | | + + + + + documented in this encounter Visit Diagnoses Not on filedocumented in this encounter"
--- OUTSIDE RECORDS SUMMARY | ~2019-10-16 | XMS | Encounter Summary ---
Demographics + + + | Address | [address] | | | [place] [address] | + + + | Home Phone [...] Team Providers + +------+ + | Care Artificial Marble Worker Name | Role | Phone | + +------+ + | Petrona Thapa | PCP | | | MD | | | + +------+ + Encounter Details +--------+ + + + + | Date | Type | Department | Care Team | Description | +--------+ + + + + | 05/04/ | [facility] | [facility] | Alanis, | Left hip pain | | 2017 | Encounter | [facility] | MD Petrona | | | | | [address] [place] | [address] [facility] | | | | | [place], [place] | [place] [address] | | | | | [address] | [phone] | | | | | [phone] | | | +--------+ + + + [...] + + + +---------+ + + | buprenorphine | Place 1 patch onto | | 0 | | | | (BUTRANS) 20 mcg/hr | the skin Once a | | | | 7 | | patch | week. | | | | | + + [...] tablet by | 120 | 3 | 05/04/20 | | | diphenoxylate-atropi | mouth 4 times daily | tablet | | 17 | 7 | | ne (LOMOTIL) | [...] capsules by | 270 | 3 | 02/24/20 | | | (NEURONTIN) 300 mg | mouth 3 times daily. | capsule | | 17 | 7 | | capsuleIndications: | | | | | | | Chronic bilateral | | | | | | | low back pain | | | | | | | without sciatica | | | | | | + + + +---------+ + + | levothyroxine | Take 1 tablet by | 90 | 1 | 04/28/20 | | | (SYNTHROID) 75 MCG | mouth every morning | tablet | | 17 | 7 | | tablet | (before breakfast). | | | | [...] documented as of this encounter Progress Notes Petrona Thapa MD - 05/10/2017 10:49 AM PSTL spine x-ray ordered, please prin t [facility] signed by Petrona Thapa MD at 017 10:49 AM PSTdocumented in this encounter Plan of Treatment +--------+ [...] | | | | | [place] [address] | | | | | | [phone] | | | | | | | | +--------+ + + + + | 12/20/ | Office | Audiology | Elisabet Munson MS | | | 2019 | Visit | | [facility] [address] | | | | | [address] [place] | | | | | | [place] [address] | | | | | | [phone] | | | | | | | | +--------+ + + + + | 12/20/ | Office | Otolaryngology | Ulysses Genao MD | | | 2019 | Visit | | [address] | | | | | | [address] [place], | | | | | | [place] [address] | | | | | | [phone] | | | | | | | | +--------+ + + + + documented as of this encounter Procedures + +--------+ + + + | Procedure Name | Priori | Date/Time | Associated Diagnosis | Comments | | | ty | | | | + +--------+ + + + | XR HIP LEFT 2-3 | Routin | 05/04/2017 | Left hip pain | Results for this | | VIEWS | e | 3:50 PM | | procedure are in the | | | | PST | | results section. | + +--------+ + + + documented in this encounter Results XR Hip Left 2-3 Views (05/04/2017 3:50 PM PST) + + | Specimen | + + | | + + + + + | Narrative | Performed At | + + + | XR HIP LEFT 2-3 VIEWS 05/04/2017 3:50 PM HISTORY: L hip pain | [facility] | | after a fall. COMPARISON: None. FINDINGS: The left hip shows | | | no acute findings. There are mild degenerative changes of the | | | bilateral hips. Fusion hardware extends into the upper sacrum with | | | lucencies surrounding the partially imaged screws that are concerning | | | for loosening. Bone mineralization is normal. Soft tissues are | | | unremarkable. IMPRESSION - Mild degenerative changes of hips. | | | Fusion hardware extending into the upper sacrum with lucencies | | | surrounding the partially imaged screws that are concerning for | | | loosening. Further evaluation can be obtained with x-rays of the | | | lumbar spine if clinically indicated. Dictated and Signed by: | | | Sarath Avila MD Electronically signed: 05/04/2017 5:00 PM | | + + + + + | Procedure Note | + + | Tawanda, Rad Results In - 05/04/2017 5:03 PM PST XR HIP LEFT 2-3 VIEWS 05/04/2017 3:50 | | PMHISTORY: L hip pain after a fall.COMPARISON: None.FINDINGS:The left hip shows no acute | | findings. There are mild degenerative changes of thebilateral hips. Fusion hardware | | extends into the upper sacrum with lucenciessurrounding the partially imaged screws that | | are concerning for loosening. Bonemineralization is normal. Soft tissues are | | unremarkable.IMPRESSION -Mild degenerative changes of hips.Fusion hardware extending | | into the upper sacrum with lucencies surrounding thepartially imaged screws that are | | concerning for loosening. Further evaluationcan be obtained with x-rays of the lumbar | | spine if clinically indicated.Dictated and Signed by: Sarath Avila MD Electronically | | signed: 05/04/2017 5:00 PM | |mineralization is normal. Soft tissues are unremarkable. | | | |IMPRESSION - | |Mild degenerative changes of hips. | | | |Fusion hardware extending into the upper sacrum with lucencies surrounding the | |partially imaged screws that are concerning for loosening. Further evaluation | |can be obtained with x-rays of the lumbar spine if clinically indicated. | | | |Dictated and Signed by: Sarath Avila MD | | Electronically signed: 05/04/2017 5:00 PM | + + + +---------+ + + | Performing | Address | City/State[facility] | Phone Number | | Organization | | | | + +---------+ + + | [facility] | | | | + +---------+ + + documented in this encounter Visit Diagnoses + + | Diagnosis | + + | Left hip pain Pain in joint, pelvic region and thigh | + + documented in this encounter"
--- OUTSIDE RECORDS SUMMARY | ~2019-10-16 | XMS | Encounter Summary ---
Demographics + + + | Address | [address] | | | [place] [address] | + + + | Home Phone [...] Providers + +------+ + | Care Chief Architect Name | Role | Phone | [...] + + | 08/20/ | Telephone | [facility] | Alanis, | Other | | 2018 | | MEDICINE [address] [place] [address] | MD Petrona | | | | | [facility] | [address] [place] [address] | | | | | [place] [address] | [place] [address] | | | | | [phone] | [phone] | | | | | | | [...] | | | | | [place] [address] | | | | | | [phone] | | | | | | | | +--------+ + + + + | 12/20/ | Office | Audiology | Elisabet Munson MS | | 2019 | Visit | | [facility] [address] | | | | | | [address] [place] | | | | | | [place] [address] | | | | | | [phone] | | | | | | | | +--------+ + + + + | 12/20/ | Office | Otolaryngology | Ulysses Genao MD | | | 2020 | Visit | | [address] [facility] | | | | | | [address] [place], | | | | | | [place] [address] | | | | | | [phone] | | | | | | | | +--------+ + + + + documented as of this encounter Visit Diagnoses Not on filedocumented in this encounter"
--- OUTSIDE RECORDS SUMMARY | ~2019-10-16 | XMS | Encounter Summary ---
Demographics + + + | Address | [address] | | | [place] [address] | + + + | Home Phone [...] Team Providers + +------+ + | Care Trim Line Worker Name | Role | Phone | + +------+ + PCP | Unavailable | + +------+ + Encounter Details +--------+ + + + + | Date | Type | Department | Care Team | Description | +--------+ + + + + | 05/10/ | Office | | Note, Outpatient | [...] as of this encounter Progress Notes Interface, Crate Builder In - 01/12/2005 8:09 AM PDT [id number] GE[facility] Date: 10/23/2003 Clinic: Ms. Meehan is a 44-year-old woman who is morbidly obese. She weighs 333 pounds and is 5 feet 10 inches tall. Her comorbidities include arthritis in the weightbearing joints and metabolic syndrome. She has gallstones, hypertension, and mild diabetes. I have done a complete history and physical on her which is in the chart, and I plan on doing a laparoscopic gastric bypass. We will take the gallbladder out if it is easy to do. I have talked with the patient about this who understands the risks and the procedures and agrees to go ahead. Chris Padgett M.D. CD / HS [id number] / [id number] / [id number] / [id number] documented i n this encounter Plan of Treatment Not on filedocumented as of this encounter Visit Diagnoses Not on filedocumented in this encounter"
--- OUTSIDE RECORDS SUMMARY | ~2019-10-16 | XMS | Encounter Summary ---
Demographics + + + | Address | [address] | | | [place] [address] | + + + | Home Phone [...] Team Providers + +------+ + | Care Cost And Risk Analysis Manager Name | Role | Phone | [...] + | 06/30/ | Refill | [facility] | Alanis, | Medication Refill | | 2018 | | MEDICINE [address] [place] [address] | MD Petrona | | | | | [facility] | [address] [place] [address] | | | | | [place] [address] | [place] [address] | | | | | [phone] | [phone] | | | | | | | [...] | | | | | [place] [address] | | | | | | [phone] | | | | | | | | +--------+ + + + + | 12/20/ | Office | Audiology | Elisabet Munson | | | 2019 | Visit | | [facility] [address] [place] | | | | | | [place] [address] | | | | | | [phone] | | | | | | | | +--------+ + + + + | 12/20/ | Office | Otolaryngology | Ulysses Genao MD | | | 2019 | Visit | | [address] | | | | | | [address] [place], | | | | | | [place] [address] | | | | | | [phone] | | | | | | | | +--------+ + + + + documented as of this encounter Visit Diagnoses + + | Diagnosis | + + | Chronic bilateral low back pain without sciatica | + + documented in this encounter"
--- OUTSIDE RECORDS SUMMARY | ~2019-10-16 | XMS | Encounter Summary ---
Demographics + + + | Address | [address] | | | [place] [address] | + + + | Home Phone [...] Team Providers + +------+ + | Care Nephrology Social Worker Name | Role | Phone [...] | | | [facility] | [place], [place] | | | | | [address] | [address] | | | | | [address] | [phone] | | | | | Physician's | | | | | | Pavilion, 1st floor | | | | | | [place], [place] | | | | | | [address] | | | | | | [phone] | | | +--------+ + + + [...]
--- OUTSIDE RECORDS SUMMARY | ~2019-10-16 | XMS | Encounter Summary ---
Demographics + + + | Address | [address] | | | [place] [address] | + + + | Home Phone [...] Team Providers + +------+ + | Care Face Hardener Name | Role | Phone | + [...] [address] | | | | | [place], [place] | [place], [place] | | | | | [address] | [address] | | | | | [phone] | [phone] | | | | | | | [...]
--- OUTSIDE RECORDS SUMMARY | ~2019-10-16 | XMS | Encounter Summary ---
Demographics + + + | Address | [address] | | | [place] [address] | + + + | Home Phone [...] Providers + +------+ + | Care Industrial Sewer Name | Role | Phone | [...]
--- OUTSIDE RECORDS SUMMARY | ~2019-10-16 | XMS | Encounter Summary ---
Demographics + + + | Address | [address] | | | [place] [address] | + + + | Home Phone [...] Providers + +------+ + | Care Director Data Processing Name | Role | Phone | + [...] + + | 02/22/ | Refill | [facility] | Alanis, | Medication Refill | | 2017 | | MEDICINE [address] [place] [address] | MD Petrona | | | | | [facility] | [address] [place] [address] | | | | | [place] [address] | [place] [address] | | | | | [phone] | [phone] | | | | | | | [...] | | | | | [place] [address] | | | | | | [phone] | | | | | | | | +--------+ + + + + | 12/20/ | Office | Audiology | DarioElisabet ramires MS | | | 2019 | Visit | | [facility] [address] [place] | | | | | | [place], [place] [address] | | | | | | [phone] | | | | | | | | +--------+ + + + + | 12/20/ | Office | Otolaryngology | Ulysses Genao MD | | | 2019 | Visit | | [address] | | | | | | [address] [place], | | | | | | [place] [address] | | | | | | [phone] | | | | | | | | +--------+ + + + + documented as of this encounter Visit Diagnoses Not on filedocumented in this encounter"
--- OUTSIDE RECORDS SUMMARY | ~2019-10-16 | XMS | Encounter Summary ---
Demographics + + + | Address | [address] | | | [place] [address] | + + + | Home Phone [...] Providers + +------+ + | Care Sample Clerk Name | Role | Phone [...] [address] | | | | | | [place], [place] | | | | | | [address] | | | +--------+ + + + [...]
--- OUTSIDE RECORDS SUMMARY | ~2019-10-16 | XMS | Encounter Summary ---
Demographics + + + | Address | [address] | | | [place] [address] | + + + | Home Phone [...] Team Providers + +------+ + | Care Continuous Pillowcase Cutter Name | Role | Phone | + +------+ + | Pedrito Gutierrez MD | PCP | | + +------+ + Encounter Details +--------+ + + + + | Date | Type | Department | Care Team | Description | +--------+ + + + + | 08/04/ | Telephone | [facility] | Chris Padgett, | | | 2006 | | [place] [address] | [address] [facility] | | | | | Bethanie Mailcode: CH4S | [facility] | | | | | [facility] | [place], [place] | | | | | and Healing, | [address] | | | | | Building | [phone] | | | | | Floor [place], [place] | | | | | | [address] | | | | | | [phone] | | | +--------+ + + + [...]
--- OUTSIDE RECORDS SUMMARY | ~2019-10-16 | XMS | Encounter Summary ---
Demographics + + + | Address | [address] | | | [place] [address] | + + + | Home Phone [...] Providers + +------+ + | Care Rock Wool Insulator Name | Role | Phone | + [...] + + | 06/03/ | Telephone | [facility] | Alanis, | Referral | | 2017 | | MEDICINE [address] [place] [address] | MD Petrona | | | | | [facility] | [address] [place] [address] | | | | | [place] [address] | [place] [address] | | | | | [phone] | [phone] | | | | | | | [...] | | | | | [place] [address] | | | | | | [phone] | | | | | | | | +--------+ + + + + | 12/20/ | Office | Audiology | Elisabet Munson MS | | 2019 | Visit | | [facility] [address] | | | | [address] | | | | | | [place] [address] | | | | | | [phone] | | | | | | | | +--------+ + + + + | 12/20/ | Office | Otolaryngology | Ulysses Genao MD | | | 2020 | Visit | | [address] | | | | | | [address] [place], | | | | | | [place] [address] | | | | | | [phone] | | | | | | | | +--------+ + + + + documented as of this encounter Visit Diagnoses Not on filedocumented in this encounter"
--- OUTSIDE RECORDS SUMMARY | ~2019-10-16 | XMS | Encounter Summary ---
Demographics + + + | Address | [address] | | | [place] [address] | + + + | Home Phone [...] Providers + +------+ + | Care Deckhand Fishing Vessel Name | Role | Phone | + [...] | | | [facility] | [place], [place] | | | | | [address] | [address] | | | | | [address] | [phone] | | | | | Physician's Pavilion | | | | | | Physician's | | | | | | Pavilion [place], | | | | | | [place] [address] | | | | | | [phone] | | | +--------+--------+ + + + [...]
--- OUTSIDE RECORDS SUMMARY | ~2019-10-16 | XMS | Encounter Summary ---
Demographics + + + | Address | [address] | | | [place] [address] | + + + | Home Phone [...] Team Providers + +------+ + | Care Psychology Clinician Name | Role | Phone | + +------+ + | Pedrito Gutierrez MD | PCP | | + +------+ + Encounter Details +--------+---------+ + + + | Date | Type | Department | Care Team | Description | +--------+---------+ + + + | 07/30/ | Office | [facility] | Eliezer Ruano, | Abdominal Pain | | 2006 | Visit | [place] [address] | [address] | (Primary Dx) | | | | Ave Mailcode: CH4S | [address] | | | | | [facility] | [facility] [place] | | | | | and Healing, | [address] | | | | | [facility] 1, 6th | [phone] | | | | | Floor [place], [place] | | | | | | [address] | | | | | | [phone] | | | +--------+---------+ + + + [...] [facility] [address] [facility], 6th [place] [address] alena Palacio - 07/30 4:09 PM PSTS: [...]
--- OUTSIDE RECORDS SUMMARY | ~2019-10-16 | XMS | Encounter Summary ---
Demographics + + + | Address | [address] | | | [place] [address] | + + + | Home Phone [...] Team Providers + +------+ + | Care Standpipe Tender Name | Role | Phone | [...] 2005 | | Bariatric [address] | [address] | Pain (Primary Dx) | | | | [address] | [address] | | | | | Mailcode: L223A | [place], [place] | | | | | Physician[facility] | [address] | | | | | [address] [place], [place] | [phone] | | | | | [address] | | | | | | [phone] | | | +--------+ + + + [...] [facility] | [address] | [place], [place] | | | [facility] | | [address] | | + + + + + documented in this encounter Visit Diagnoses + + | Diagnosis | + + | Chronic abdominal pain - Primary Abdominal pain, unspecified site | + + documented in this encounter"
--- OUTSIDE RECORDS SUMMARY | ~2019-10-16 | XMS | Encounter Summary ---
Demographics + + + | Address | [address] | | | [place] [address] | + + + | Home Phone [...] Providers + +------+ + | Care Spreader Operator Name | Role | Phone | [...] + + | 04/02/ | Telephone | [facility] | Alanis, | Other | | 2018 | | MEDICINE [address] [place] [address] | MD [place] | | | | | [facility] | [address] [place] [address] | | | | | [place] [address] | [place] [address] | | | | | [phone] | [phone] | | | | | | | [...] | | | | | [place] [address] | | | | | | [phone] | | | | | | | | +--------+ + + + + | 12/20/ | Office | Audiology | Elisabet Munson MS | | 2019 | Visit | | [facility] [address] | | | | | | [address] [place] | | | | | | [place] [address] | | | | | | [phone] | | | | | | | | +--------+ + + + + | 12/20/ | Office | Otolaryngology | Ulysses Genao MD | | | 2020 | Visit | | [address] [facility] | | | | | | [address] [place], | | | | | | [place] [address] | | | | | | [phone] | | | | | | | | +--------+ + + + + documented as of this encounter Visit Diagnoses Not on filedocumented in this encounter"
--- OUTSIDE RECORDS SUMMARY | ~2019-10-16 | XMS | Encounter Summary ---
Demographics + + + | Address | [address] | | | [place] [address] | + + + | Home Phone [...] Team Providers + +------+ + | Care Doper Operator Name | Role | Phone | [...] + + | 02/04/ | Telephone | [facility] | Emmy-Kamlesh, | Other (Kidney pain ) | | 2017 | | MEDICINE [address] | MD [place] | | | | | [facility] | [address] [place] [address] | | | | | [place] [address] | [place] [address] | | | | | [phone] | [phone] | | | | | | | [...] | | | | | [place] [address] | | | | | | [phone] | | | | | | | | +--------+ + + + + | 12/20/ | Office | Audiology | Dariokeyla CeasarMS rafa | | | 2019 | Visit | | [facility] [address] | | | | | | [address] [place] | | | | | | [place], [place] [address] | | | | | | [phone] | | | | | | | | +--------+ + + + + | 12/20/ | Office | Otolaryngology | Ulysses Genao MD | | | 2019 | Visit | | [address] | | | | | | [address] [place], | | | | | | [place] [address] | | | | | | [phone] | | | | | | | | +--------+ + + + + documented as of this encounter Visit Diagnoses Not on filedocumented in this encounter"
--- OUTSIDE RECORDS SUMMARY | ~2019-10-16 | XMS | Encounter Summary ---
Demographics + + + | Address | [address] | | | [place] [address] | + + + | Home Phone [...] Providers + +------+ + | Care Flow Manager Name | Role | Phone | [...] + + | 09/12/ | Telephone | [facility] | Miranda Lambert, | Medication | | 2009 | | Pain Center at | ANP | Adjustment (rec's | | | | [place] | | for weaning due to | | | | [address] | | over use) | | | | Mailcode: CH15P | | | | | | [facility] | | | | | | and Healing, | | | | | | Building | | | | | | Floor [place], [place] | | | | | | [address] | | | | | | [phone] | | | +--------+ + + + [...]
--- OUTSIDE RECORDS SUMMARY | ~2019-10-16 | XMS | Encounter Summary ---
Demographics + + + | Address | [address] | | | [place] [address] | + + + | Home Phone [...] Team Providers + +------+ + | Care Marine Engineer Cpvec Name | Role | Phone | + [...] | | | [facility] | [place], [place] | and counseling; | | | | [address] | [address] | [place] | | | | [address] | [phone] | | | | | [facility] | | | | | | Physician's | | | | | | Pavilion [place], | | | | | | [place] [address] | | | | | | [phone] | | | +--------+ + + + [...]
--- OUTSIDE RECORDS SUMMARY | ~2019-10-16 | XMS | Encounter Summary ---
Demographics + + + | Address | [address] | | | [place] [address] | + + + | Home Phone [...] Team Providers + +------+ + | Care Audiology Technician Name | Role | Phone | + +------+ + PCP | Unavailable | + +------+ + Encounter Details +--------+ + + + + | Date | Type | Department | Care Team | Description | +--------+ + + + + | 08/11/ | Hospital | [facility] | Ruben Tobias | | | 2001 | Encounter | MED CTR SLEEP | MD Raji [address] | | | | | [place] [address] | [facility] | | | | | [place], [place] | [place] [address] | | | | | [address] | [phone] | | | | | [phone] | | | +--------+ + + + [...] | | | | | [place] [address] | | | | | | [phone] | | | | | | | | +--------+ + + + + | 12/20/ | Office | Audiology | Elisabet Munson MS | | | 2019 | Visit | | [facility] | | | | | | [address] [place] [address] [place] | | | | | | [place] [address] | | | | | | [phone] | | | | | | | | +--------+ + + + + | 12/20/ | Office | Otolaryngology | Ulysses Genao MD | | | 2020 | Visit | | [address] [facility] | | | | | | [address] [place], | | | | | | [place] [address] | | | | | | [phone] | | | | | | | | +--------+ + + + + documented as of this encounter Visit Diagnoses Not on filedocumented in this encounter"
--- OUTSIDE RECORDS SUMMARY | ~2019-10-16 | XMS | Encounter Summary ---
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 female [facility] Comprehensive Pain Center Return Visit Chief [...] drawing has be completed, which I reviewed. STAINED GLASS JOINER Brief Pain Inventory: Right Now: 9 Least [...] Physical therapy: Two days per week in [place] knees and both legs, shoulders and back [...] social history. Pending 08/30/07 DR Cadet in [facility]: right knee arthroplasty. Urology evaluation for ur [...] Collection Time Resulting Agency 05/25/2007 4:06 PM [facility] DEPARTMENT OF RADIOLOGY Component Results MR CERVICAL [...] with any concerns or questions. DELFINA MOLINA [facility] Mail code CH 4P [facility] [address] [facility] [address] Ailyn Bello 08/13/19 08 8:52 AM [...]
--- OUTSIDE RECORDS SUMMARY | ~2019-10-16 | XMS | Encounter Summary ---
Demographics + + + | Address | [address] | | | [place] [address] | + + + | Home Phone [...] Providers + +------+ + | Care Welder 2Nd Shift Name | Role | Phone | + +------+ + PCP | Unavailable | + +------+ + Encounter Details +--------+ + + + + | Date | Type | Department | Care Team | Description | +--------+ + + + + | 11/26/ | Office | | Note, Outpatient | [...] as of this encounter Progress Notes Interface, Named Account Executive In - 01/12/2005 6:46 AM [facility] Date: 11/27/2003 Clinic: Surgery Clinic Subjective: This patient of Dr. Chris Padgett walks into clinic today to discuss her laparoscopic incisions and a lesion on her lower back. She was discharged from [facility] approximately 36 hours ago following a laparoscopic gastric bypass procedure. She has otherwise been doing well. She has had no vomiting. She has been able to take in yogurt, apple sauce, and other soft foods as well as taking in 8 to 12 eight-ounce containers of liquid per day. Her primary concern is that her upper laparoscopic incision has opened slightly. She has not noted any drainage from it, no surrounding redness, and no increased pain. She also has concerns about some reddened area across her lower back that has a blister over the top of that. This is somewhat irritating but not acutely painful. In addition, reviewing her lab tests, she is noted to have a low potassium just prior to discharge, and she was sent home with 20 mEq of potassium to take daily. The patient has been staying in a motel since her discharge and would like to proceed to [place], where her home is. She agrees to wait until the results of the lab tests before starting on her trip home. Objective General: A 43-year-old woman in no distress. Eye contact is good. She walks in assisted by crutches. Abdomen: Obese and soft with laparoscopic incisions, 4 of which are intact. Upper incision which is approximately 1 cm in length is open slightly. Gentle exploration with Q-tip reveals no pockets and no drainage. It is approximated with a Steri-Strip as the patient finds this more comfortable. There are 2 other areas where there are small blisters under the tape on the lower 2 laparoscopic sites. The tape is pulled down to decrease irritation. Skin prep is placed around the laparoscopic sites in order to better protect from the Steri-Strips. The rash on her back approximately 10 cm in length and varying from 0.5 cm to 1 cm in width, superficial redness with 2 blebs approximately 0.5 cm to 1 cm in length, slightly elevated with clear fluid. These are not disturbed, left intact, no evidence of infection. Impression 1. Hypokalemia. She will have repeat labs drawn today. 2. She is anticoagulated with heparin. She will have a PPT drawn today. This is going to be only 2-1/2 hours after heparin injection, so it may prove difficult to evaluate. 3. A lesion on her back which is very consistent with contact dermatitis. She recalls lying on chucks plastic after which she noticed these lesions. She also has similar lesions under other plastic bandage indicating sensitivity and contact dermatitis. She will keep the area clean and dry. I have asked her to try to keep those blebs intact to reduce the risk for any infection or maceration. 4. Abdominal laparoscopic incision. She has one that has opened up slightly. No evidence of infection. It is approximated with a Steri-Strips at the patient's request but will no doubt heal by secondary intention. She will continue to monitor this. She is otherwise stable following her procedure. Plan 1. Labs as ordered. Discharge to be done today. 2. The patient will contact our office to give us contact phone numbers. 3. Continue wound care as instructed in the hospital. 4. Contact us should she have any additional questions. Liliya Kirkpatrick. NELLY / SHARIF [id number] / [id number] / [id number] / [phone] Tdocumented in this encounter Plan of Treatment Not on filedocumented as of this encounter Visit Diagnoses Not on filedocumented in this encounter"
--- OUTSIDE RECORDS SUMMARY | ~2019-10-16 | XMS | Encounter Summary ---
Demographics + + + | Address | [address] | | | [place] [address] | + + + | Home Phone [...] Team Providers + +------+ + | Care Nsh Teacher Name | Role | Phone | [...] 10/28/ | Office | [facility] at [facility] | Lukasz Charles, | Major Depressive | | 2006 | Visit | [address] | PhD [address] | Disorder, Recurrent | | | | Mailcode: CH15P | [place], [place] | Episode, Moderate | | | | [facility] | [address] | ([facility]); Neck Pain; | | | | and Healing, | [phone] | Herniated Lumbar | | | | Building | | Intervertebral Disc | | | | Floor [place], [place] | | L4-5; 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 She has been doing cross stitch [...] She has using good self-care skills. Diagnosis: [place] I: 1. (296.32) Major depressive disorder, recurrent, moderate. 2. (309.24) Adjustment disorder with anxiety. 3. 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 [place] II: Deferred [place] III: abdominal pain, migraine headache, low back pain. [place] IV: low finances [place] V: GAF 50 Plan: Return in 2 weeks. Check preparation for move and for niece's visit, results of orthopedic visit. Check pacing, relaxation, activity, distraction. Continue cognitive/behavioral the rapy. Total time spent with patient was approximately 45 minutes. LUKASZ CHARLES [facility] [address] [facility], 4th [place] [address] documented in this encount er Plan of [...]
--- OUTSIDE RECORDS SUMMARY | ~2019-10-16 | XMS | Encounter Summary ---
Demographics + + + | Address | [address] | | | [place] [address] | + + + | Home Phone [...] Team Providers + +------+ + | Care Counter Sales Representative Name | Role | Phone [...] | | | | | hemorrhoid | [place], [place] | [address] [facility] | | | | | Rectal pain | [address] | [facility] | | | | | Procedures | | Rd [place], | | | | | CONSULT TO | | [place] | | | | | [place] | | [address] | | | | | SURGERY | | Phone: | | | | | | | [phone] | | | | | | | Fax: | | | | | | | [phone] | +--------+--------+ + + + + Encounter Details +--------+ + + + + | Date | Type | Department | Care Team | Description | +--------+ + + + + | 08/10/ | Wire Spinner | Dig[facility]ive Health | Nuris Cardenas, ANP | Internal Hemorrhoid; | | 2008 | | [place] [address] [address] | | Rectal Pain | | | | [address] | | | | | | Mailcode: [id number] | | | | | | [facility] | | | | | | [place], [place] | | | | | | [address] | | | | | | [phone] | | | +--------+ + + + [...]
--- OUTSIDE RECORDS SUMMARY | ~2019-10-16 | XMS | Encounter Summary ---
Demographics + + + | Address | [address] | | | [place] [address] | + + + | Home Phone [...] Team Providers + +------+ + | Care Graduate Assistant Name | Role | Phone | [...] + + | 01/17/ | Office | [facility] | Alanis, | Surgical wound | | 2019 | Visit | [address] | MD [place] | infection (Primary | | | | [address] | [address] [place] [address] | Dx) | | | | [place] [address] | [place] [address] | | | | | [phone] | [phone] | | | | | | | [...] Procedure: COLONOSCOPY; Surgeon: Luther Brito MD; Location: [facility] MEDICAL PROCEDURE UNIT DILATION AND CURETTAGE OF UTERUS ELBOW SURGERY FINGER TRIGGER RELEASE 2002 FINGER TRIGGER RELEASE 2009 GASTRIC BYPASS SURGERY 2004 HYSTERECTOMY 05/14/1980 JOINT REPLACEMENT Bilateral 2006 2007 KNEE ARTHROSCOPY 2005 LAPAROSCOPY 01/27/2015 LAPAROTOMY 2008 ROTATOR CUFF REPAIR 2004 SPINE SURGERY TONSILLECTOMY 1964 UPPER GASTROINTESTINAL ENDOSCOPY N/A 12/18/2017 Procedure: EGD; Surgeon: Luther Brito MD; Location: [facility] MEDICAL PROCEDURE UNIT CURRENT MEDICATIONS [...] tablet under the tongue every 5 lupe ndaer as needed for Chest pain. 25 tablet [...] Allergen Reactions Ensure Diarrhea Food Diarrhea Lactose Wkpqxczprt-Tdf-Vnrc-Codeine Other (See Comments) Balance problems Codeine Sulfate Nausea Only Food Allergy Formula Diarrhea Ensure Levofloxacin Hives, Itching and Rash Butalbital Ropinirole Amitriptyline Hcl Other (See Comments) Confused and questionable for seizures Cshjscmzub-Hzfo-Uqhyvgxd Hives and Rash Cephalexin Hives Ciprofloxacin Hives [...] Note: Parts of this documentwere created using Airphrame speech recognition software. As a r esult, [...] | | | | | [place] [address] | | | | | | [phone] | | | | | | | | +--------+ + + + + | 12/20/ | Office | Audiology | Elisabet Munson MS | | | 2019 | Visit | | [facility] [address] | | | | [address] [place] | | | | | | [place] [address] | | | | | | [phone] | | | | | | | | +--------+ + + + + | 12/20/ | Office | Otolaryngology | Ulysses Genao MD | | | 2019 | Visit | | [address] | | | | | | [address] [place], | | | | | | [place] [address] | | | | | | [phone] | | | | | | | | +--------+ + + + + documented as of this encounter Visit Diagnoses + + | Diagnosis | + + | Surgical wound infection - Primary Other postoperative infection | + + documented in this encounter
--- OUTSIDE RECORDS SUMMARY | ~2019-10-16 | XMS | Encounter Summary ---
Demographics + + + | Address | [address] | | | [place] [address] | + + + | Home Phone [...] Providers + +------+ + | Care Air Force Senior Officer Name | Role | Phone | [...] + + | 05/04/ | Refill | [facility] | Alanis, | Medication Refill | | 2017 | | MEDICINE [address] [place] [address] | MD [place] | | | | | [facility] | [address] [place] [address] | | | | | [place] [address] | [place] [address] | | | | | [phone] | [phone] | | | | | | | [...] | | | | | [place] [address] | | | | | | [phone] | | | | | | | | +--------+ + + + + | 12/20/ | Office | Audiology | DarioElisabet ramires MS | | | 2019 | Visit | | [facility] [address] | | | | | [address] [place] | | | | | | [place], [place] [address] | | | | | | [phone] | | | | | | | | +--------+ + + + + | 12/20/ | Office | Otolaryngology | Ulysses Genao MD | | | 2019 | Visit | | [address] | | | | | | [address] [place], | | | | | | [place] [address] | | | | | | [phone] | | | | | | | | +--------+ + + + + documented as of this encounter Visit Diagnoses Not on filedocumented in this encounter"
--- OUTSIDE RECORDS SUMMARY | ~2019-10-16 | XMS | Encounter Summary ---
Demographics + + + | Address | [address] | | | [place] [address] | + + + | Home Phone [...] Providers + +------+ + | Care Director Loss Prevention Name | Role | Phone | + +------+ + | Maria Esther Cintron MD | PCP | | + +------+ + Encounter Details +--------+ + + + + | Date | Type | Department | Care Team | Description | +--------+ + + + + | 02/16/ | Telephone | [facility] | Chris Padgett, | | | 2007 | | [place] [address] | [address] [facility] | | | | | [place] Mailcode: CH4S | [address] | | | | | Center for [facility] | [place], [place] | | | | | and Healing, | [address] | | | | | Building , 6th | [phone] | | | | | Floor [place], [place] | | | | | | [address] | | | | | | [phone] | | | +--------+ + + + [...]
--- OUTSIDE RECORDS SUMMARY | ~2019-10-16 | XMS | Clinical Summary ---
Demographics + + + | Address | [address] | | | [place] [address] | + + + | Home Phone [...] Providers + +------+ + | Care Correctional Supply Supervisor Name | Role | Phone | [...] + + + + + + | Yunogxpwqc-Sgyu-Ypga | Rash | Low | | duplicate | | eine | | | | | + + + + + + | Icibycnxbe-Mjot-Vlch | Hives, Rash | Low | 03/25/20 | | | eine | | | 17 | | + + + + + + | Rubhhwovxd-Yfv-Ilte- | Other (See Comments) | Medium | [...] + + | Ropinirole | | | 03/04/20 | | | | | | 18 [...] Pain. | | | | | | | [...] tablet by | 270 | 2 | 08/3 | | Activ | | (ZOFRAN ODT) 4 mg | mouth every 8 hours | tablet | | 0/20 | | e | | disintegrating | as needed for | | | 19 | | | | tabletIndications: | Nausea. [...] | 19 | | | | : extermination supervisor | Decreased | | | | | [...] tablet by | 25 | 5 | 09/3 | | Activ | | (DEMADEX) 5 mg | mouth 5 TIMES A WEEK | tablet | | 0/20 | | e | | tablet | | | | 19 | | | + + + +---------+------+------+-------+ | SUMAtriptan | Take 1 tablet by | 12 | 5 | 10/0 | | Activ | | (IMITREX) 100 mg | mouth as needed for | tablet | | 7/20 | | e | | tabletIndications: | Migraine. Take 1 tab | | | 19 | | | | Migraine without | [...] hours | | | | | | + [...] tablet by | 180 | 2 | 12/0 | | Activ | | diphenoxylate-atropi | mouth 6 times daily. | tablet | | /20 | | e | | ne (LOMOTIL) | | | | 19 | | | | 2.5-0.025 mg per | | | | | | | | tabletIndications: | | | | | | | | Chronic diarrhea, | | | | | | | | History of Zoe-en-Y | | | | | | | | gastric bypass | | | | | | | + + + +---------+------+------+-------+ | furosemide (LASIX) | take 1 tablet by | 180 | 2 | 12/3 | | Activ | | 80 mg tablet | mouth twice a day | tablet | | 07/04 | | e | | | | | | 19 | [...] capsules by | 180 | 2 | 03/2 | | Activ | | (IMODIUM) 2 mg | mouth every morning | capsule | | 3/20 | | e | | capsule | and 2 capsules by | | | 20 | | | | | mouth every evening | | | | | | + + + +---------+------+------+-------+ | sucralfate | take 1 tablet by | 120 | 1 | 04/0 | | Activ | | (CARAFATE) 1 g | mouth four times a | tablet | | 9/20 | | e | | tablet | day if needed | | | 20 | | | [...] + + + +---------+------+------+-------+ | sucralfate | take 1 tablet by | 120 | 1 | 03/2 | 04/0 | Disco | | (CARAFATE) 1 g | mouth four times a | tablet | | 6/20 | 9/20 | ntinu | | tablet | day if needed | | | 19 | 20 | ed | | | | | | | | (Reor | | | | | | | | crista) | + + + +---------+------+------+-------+ | gabapentin | take 3 capsules by | 270 | 0 | 03/2 | 04/2 | Disco | | (NEURONTIN) 300 mg | mouth three times a | capsule | | 5/20 | 9/20 | ntinu | | capsule | day | | | 20 | 20 | ed | | | | | | | | (Reor | | | | | | | | crista) | + + + +---------+------+------+-------+ + + [...] + + | 10/13/ | Telephone | Internal Medicine | Alanis, | Appointment Question | | 2019 | | | MD Petrona | | +--------+ + + + + | 10/11/ | Refill | Internal Medicine | Alanis, | Medication Refill | | 2019 | | | MD Petrona | | +--------+ + + + + | 10/05/ | Telephone | Internal Medicine | Alanis, | Injections | | 2019 | | | MD Petrona | | +--------+ + + + + | 10/04/ | Documentati | Internal Medicine | Alanis, | | | 2019 | on | | MD Petrona | | +--------+ + + + + | 09/21/ | Refill | Internal Medicine | Alanis, | Medication Refill | | 2019 | | | MD Petrona | | +--------+ + + + + | 09/14/ | Clinical | Internal Medicine | Alanis, | B12 deficiency | | 2019 | Support | | MD Petrona | | +--------+ + + + + | 09/14/ | Telephone | Internal Medicine | Alanis, | Chest Pain | | 2019 | | | MD Petrona | | +--------+ + + + + | 09/06/ | Refill | Internal Medicine | Alanis, | Medication Refill | | 2019 | | | MD Petrona | | +--------+ + + + + | 09/04/ | Refill | Internal Medicine | Alanis, | Medication Refill | | 2019 | | | MD Petrona | | +--------+ + + + + | 09/04/ | Telephone | Internal Medicine | Alanis, | Appointment Question | | 2019 | | | MD Petrona | | +--------+ + + + + | 08/17/ | Telephone | Internal Medicine | Alanis, | Other | | 2019 | | | MD Petrona | | +--------+ + + + + | 08/16/ | Refill | Internal Medicine | Alanis, | Medication Refill | | 2019 | | | MD Petrona | | +--------+ + + + + | 08/14/ | Office | Internal Medicine | Alanis, | Situational insomnia | | 2019 | Visit | | MD Petrona | (Primary Dx); | | | | | | Situational | | | | | | depression | +--------+ + + + + | 07/28/ | Telephone | Internal Medicine | Alanis, | Other | | 2019 | | | MD Petrona | | +--------+ + + + + | 07/27/ | Telephone | Internal Medicine | Alanis, | Other | | 2019 | | | MD Petrona | | +--------+ + + + + | 07/19/ | Telephone | Internal Medicine | Alanis, | Lab Results | 2019 | | | MD Petrona | | +--------+ + + + + | 07/19/ | Refill | Internal Medicine | Alanis, | Medication Refill | | 2019 | | | MD Petrona | | +--------+ + + + + | 07/18/ | Office | Internal Medicine | Alanis, | Chronic bilateral | | 2019 | Visit | | MD Petrona | low back pain with | | | | | | bilateral sciatica | | | | | | (Primary Dx); Other | | | | | | idiopathic | | | | | | scoliosis, lumbar | | | | | | region; Acute pain | | | | | | of right shoulder; | | | | | | Acquired | | | | | | hypothyroidism | +--------+ + + + + from [...] | 02/13/2013, 02/02/2012, 02/03/2011 | | | DULZofia)CHRISTIANNEKT | | | + + + + [...] + + + + Plan of Treatment +--------+ + + + [...] | | | | | [place] [address] | | | | | | [phone] | | | | | | | | +--------+ + + + + | 12/20/ | Office | Audiology | Elisabet Munson MS | | | 2019 | Visit | | [facility] [address] | | | | | [address] [place] | | | | | | [place] [address] | | | | | | [phone] | | | | | | | | +--------+ + + + + | 12/20/ | Office | Otolaryngology | Ulysses Genao MD | | | 2019 | Visit | | [address] | | | | | | [address] [place], | | | | | | [place] [address] | | | | | | [phone] | | | | | | | | +--------+ + + + + + + + + + | Health Maintenance | Due Date | Last Done | Comments | + + + + + | Cervical Cancer | | | | | Screening (Pap) | 9 | | | + + + + + | Vaccine: Zoster (2 | | 02/18/2012 | | | of 3) | 2 | | | + + + + + | Adult Annual | | | | | Wellness Visit | 5 | | | + + + + + | Statin Therapy | | | | | (optimal intensity) | 5 | | | + + + + + | Breast Cancer | | 03/01/2018 | | | Screening | 0 | | | + + + + + | Vaccine: | | 06/17/2014, 10/27/2011, | | | Dtap/Tdap/Td (4 - | 5 | 04/21/2009, Additional history | | | Td) | | exists | | + + + + + | Colorectal Cancer | | 12/18/2017, 12/18/2017, | | | Screening | 8 | 12/18/2017 | | | (Colonoscopy) | | | | + + + + + | Hepatitis C | Completed | 12/10/2017 | | | Screening | | | | + + + + + | Vaccine: Influenza | Completed | 02/15/2019, 02/17/2018, | | | | | 02/06/2017, Additional history | | | | | exists | | + + + + + Procedures + +--------+ + + + | Procedure Name | Priori | Date/Time | Associated Diagnosis | Comments | | | ty | | | | + +--------+ + + + | TSH | Routin | 07/18/2019 | Acquired | Results for this | | | e | 10:01 AM | hypothyroidism | procedure are in the | | | | PST | | results section. | + +--------+ + + + from Last 3 Months Results TSH (07/18/2019 10:01 AM PST) + [...] [address] | [place] | [phone] | | [facility] | | [address] | | | - LABORATORY | | | | + + + + + from Last 3 Months Insurance [...] +--------+ +---------+--------+ | MEDICARE | MEDICA | [id number] | 07/16/19 | [phone] | | Medica | | | RE | | 03-Pre | 5 | | re | | | PART A | | sent | | | | | | AND B | | | | | | + +--------+ +--------+ +---------+--------+ | [employer] | [employer]A | [id number] | 06/16/19 | [phone] | | Medica [...] 1960 | [phone] | [place] [address] | | | bijan | | | 0 (Home) | | + +--------+ +--------+ + + Advance Directives + + + + + | Type | Date Recorded | Patient | Explanation | | | | Extruder Tender | | + + + + + | Power of | | | | | Supervisor Landscape | | | | + + + + + | Advance | 10/14/2018 10:09 | | | | Directive | AM | | | + + + + +
--- OUTSIDE RECORDS SUMMARY | ~2019-10-16 | XMS | Encounter Summary ---
Demographics + + + | Address | [address] | | | [place] [address] | + + + | Home Phone [...] Team Providers + +------+ + | Care User Experience Team Lead Name | Role | Phone | [...] Description | +--------+--------+ + + + | 09/28/ | Refill | Comprehensive Pain | Miranda [...] [address] | | | | | | [place], [place] | | | | | | [address] | | | | | | [phone] | | | +--------+--------+ + + + [...]
--- OUTSIDE RECORDS SUMMARY | ~2019-10-16 | XMS | Encounter Summary ---
Demographics + + + | Address | [address] | | | [place] [address] | + + + | Home Phone [...] Providers + +------+ + | Care Retail Shift Manager Name | Role | Phone | [...] | Osteopenia | | 2006 | | [place] [address] | [address] [facility] | | | | | Bethanie Mailcode: CH4S | Naeem Mcrae | | | | | [facility] | [place], [place] | | | | | and Healing, | [address] | | | | | [facility] | [phone] | | | | | Floor [place], [place] | | | | | | [address] | | | | | | [phone] | | | +--------+ + + + [...]
--- OUTSIDE RECORDS SUMMARY | ~2019-10-16 | XMS | Encounter Summary ---
Demographics + + + | Address | [address] | | | [place] [address] | + + + | Home Phone [...] Team Providers + +------+ + | Care Brim Welt Sewing Machine Operator Name | Role | [...] | | | Metabolism | bypass | [address] | [address] | | | | | Hypovitamino | [address], | Ave | | | | | sis D B12 | [address] | [place], [place] | | | | | nutritional | [place] | [address] | | | | | deficiency | [address] | Phone: | | | | | Other | Phone: | [phone] | | | | | protein-jose manuel | [phone] | Fax: | | | | | nick | Fax: | [phone] | | | | | malnutrition | [phone] | | | | | | Weight | | | | | | | gain | | | | | | | Procedures | | | | | | | CONSULT TO | | | | | | | ENDO | | | | | | | [address] | | | | | | | [address] | | | +--------+--------+ + + + [...] | | | | | | | [facility] | | | | | | | Health and | | | | | | | Healing, | | | | | | | [address] | | | | | | | [place], [place] | | | | | | | [address] | | | | | | | Phone: | | | | | | | [phone] | | | | | | | Fax: | | | | | | | [phone] | +--------+--------+ + + + + Encounter Details +--------+---------+ + + + | Date | Type | Department | Care Team | Description | +--------+---------+ + + + | 09/23/ | Office | Digestive Health | Patricia Banegas, | H/O gastric bypass | | 2013 | Visit | [facility] [address] | MANAGER EDITORIAL [address] | (Primary Dx); | | | | [address] | [facility] [address] | Hypovitaminosis D; | | | | Mailcode: Center | [place], [place] | B12 nutritional | | | | for Health and | [address] | deficiency; Other | | | | Healing, Building 2 | [phone] | protein-calorie | | | | [facility] [place] | | malnutrition; Weight | | | | [address] | | gain; Teeth decayed | | | | [phone] | | | +--------+---------+ + + + [...] make an appt with me Calories approx. 9773-3848 per day when 3 mos or more out from surgery to maintain weight l oss. Calories may need to be adjusted up for individual needs. I recommend eating 5-6 times per day. [employer] Protein 60-100+ gms per day Water: 64 oz per day, your urine should be light yellow. Please let up know if you would like a referral to see the Director [facility]. I would be happy to put in referrals to [facility], medical membership is $198 for 3 mos. If you are 12 mos or more out from surgery and would like referral for excess skin removal please let us know. Call us if you have any questions or concerns, or send [employer] message for non-urgent issue s. Patricia Banegas RN, [facility] Nurse Practitioner for Bariatric Surgery [facility] | [address] | [place], [place] | [address] | documented in this encounter Progress Notes [...] Hives Mainly in the legs Clindamycin Codeine Uqkuliq-Qokdyevjuy-Aww-Caff Balance problems Fioricet W/Codeine (Tehwvwbums-Yfhxylyesk-Uxn-Cod) Keflex (Cephalexin) Morphine IM ( only in [facility]) made gut pain worse 08/27/06: [...] replacement 08/2007 right knee Lumbar fusion 05/2008 L5-R3ahctsy with bone spur removals Appendectomy Cholecystectomy section [...] to POC and will call or send [employer] message if any issues. Start time 1325, end time 1353. I spent a total of 28 minutes face to face with this patie nt. Over 50% of visit was in counseling. ~ 2 Minutes of additional time spent reviewing chart prior to visit and documenting after t his visit. Patricia Banegas RN, [facility]- Nurse Practitioner for Bariatric Surgery [facility] | [address] | [place], [place] | [address] | documented in this e ncounter Plan [...]
--- OUTSIDE RECORDS SUMMARY | ~2019-10-16 | XMS | Encounter Summary ---
Demographics + + + | Address | [address] | | | [place] [address] | + + + | Home Phone [...] Team Providers + +------+ + | Care Educational Administration Teacher Name | Role | Phone | [...] [address] | | | | | [facility] | [place], [place] | | | | | [address] | [address] | | | | | [address] | [phone] | | | | | [facility] | | | | | | Physician's | | | | | | Pavilion [place], | | | | | | [place] [address] | | | | | | [phone] | | | +--------+ + + + [...]
--- OUTSIDE RECORDS SUMMARY | ~2019-10-16 | XMS | Encounter Summary ---
Demographics + + + | Address | [address] | | | [place] [address] | + + + | Home Phone [...] Providers + +------+ + | Care Electrical Products Engineer Name | Role | Phone | + +------+ + | Petrona Thapa | PCP | | | MD | | | + +------+ + Reason for Visit + + + | Reason | Comments | + + + | Cold-like Symptoms | | + + + Encounter Details +--------+ + + + + | Date | Type | Department | Care Team | Description | +--------+ + + + + | 08/19/ | Telephone | [facility] | Alanis, | Cold-like Symptoms | | 2018 | | MEDICINE [address] [place] [address] | MD Petrona | | | | | [facility] | [address] [place] [address] | | | | | [place] [address] | [place] [address] | | | | | [phone] | [phone] | | | | | | | [...] | | | | | [place] [address] | | | | | | [phone] | | | | | | | | +--------+ + + + + | 12/20/ | Office | Audiology | Elisabet Munson MS | | | 2019 | Visit | | [facility] [address] | | | | | [address] [place] | | | | | | [place] [address] | | | | | | [phone] | | | | | | | | +--------+ + + + + | 12/20/ | Office | Otolaryngology | Ulysses Genao MD | | | 2019 | Visit | | [address] | | | | | | [address] [place], | | | | | | [place] [address] | | | | | | [phone] | | | | | | | | +--------+ + + + + documented as of this encounter Visit Diagnoses Not on filedocumented in this encounter"
--- OUTSIDE RECORDS SUMMARY | ~2019-10-16 | XMS | Encounter Summary ---
Demographics + + + | Address | [address] | | | [place] [address] | + + + | Home Phone [...] Team Providers + +------+ + | Care Paying Teller Name | Role | Phone | + [...] | | | Metabolism | bypass | [address] | [address] | | | | | Hypovitamino | [address], | Ave | | | | | sis D [address]12 | [address] | [place], [place] | | | | | nutritional | [place], [place] | [address] | | | | | deficiency | [address] | Phone: | | | | | Other | Phone: | [phone] | | | | | protein-jose manuel | [phone] | Fax: | | | | | nick | Fax: | [phone] | | | | | malnutrition | [phone] | | | | | | Weight | | | | | | | gain | | | | | | | Procedures | | | | | | | CONSULT TO | | | | | | | ENDO | | | | | | | [address] | | | | | | | [address] | | | +--------+--------+ + + + [...] | | | [facility] | [place], [place] | Dx); Hypothyroidism; | | | | [address] | [address] | Essential | | | | [address] | [phone] | hypertension 401.9; | | | | [facility] | | Secondary | | | | Physician's | | hyperparathyroidism, | | | | [facility] [place], | | non-renal (HCC) | | | | [place] [address] | | | | | | [phone] | | | +--------+---------+ + + + [...] 32.9 (L) RDW 11.5-15.0 % 12.4 PLATELET LP437-945 K/cu mm 205 IRON 30-160 ug/dL 114 [...] like the sleeve but was told by [facility] MOTOR VEHICLE FIELD REPRESENTATIVE that it is not an option, recommended pharmacologic weight mgmt. Gets primary care in [place], [place] (Maria Esther Cintron). Weight leveled out [...] replacement 08/2007 right knee Lumbar fusion 05/2008 L5-U8cdcpao with bone spur removals Appendectomy Cholecystectomy section [...] Hives Mainly in the legs Clindamycin Codeine Demjunj-Xwfntxdlkn-Qnx-Caff Balance problems Fioricet W/Codeine (Wlechzkglx-Jvxekxqwir-Nrg-Cod) Keflex (Cephalexin) Morphine IM ( only in [facility]) made gut pain worse 08/27/06: [...] Ly Allred MD R-2, Internal Medicine Pager: [phone] documented in this enco unter Plan of [...] | | If you are | | [place] | | | | screening for diabetes: [...] + | [facility] | [address] | [place] [address] | | | [place] | | | [...] [facility] | [address] | [place] [address] | | | SERVICES, SPECIAL | [address] [...] + + + + + | [facility] | [address] | [place] [address] | | | SERVICES, CORE | PARK [...] + + + + + | [facility] | [address] | [place] [address] | | | SERVICES, SPECIAL | [address] [...] by | | | | | | Technical Machine,[address] | | | | | | Abdiaziz Morales, [facility] | | | | | | [address] | | | | | | [phone].Locaid. | | | | | | [facility], Get Gao, | | | | [...] [facility] | [address] | [place], [place] | | | [facility] | | [address] | | + + + + + [...] | + + + + + | [facility] | [address] | [place] [address] | | | SERVICES, SPECIAL | PARK [...] + | [facility] | [address] | [place] [address] | | | [place] | | | [...]
--- OUTSIDE RECORDS SUMMARY | ~2019-10-16 | XMS | Encounter Summary ---
Demographics + + + | Address | [address] | | | [place] [address] | + + + | Home Phone [...] + +------+ + | Care Separator Operator [employer] Name | Role | Phone | + [...] Pavilion | | | | | | [place], [place] | | | | | | [address] | | | | | | [phone] | | | +--------+ + + + [...]
--- OUTSIDE RECORDS SUMMARY | ~2019-10-16 | XMS | Encounter Summary ---
Demographics + + + | Address | [address] | | | [place] [address] | + + + | Home Phone [...] Team Providers + +------+ + | Care Bag Machine Set Up Operator Name | Role | Phone | + +------+ + PCP | Unavailable | + +------+ + Encounter Details +--------+ + + + + | Date | Type | Department | Care Team | Description | +--------+ + + + + | 11/22/ | Results | | Other, Faculty | | | 2004 | Only | | [phone] | | +--------+ + + + + [...] + | Ordered by SYEDA MCKENZIE | [facility] | | | DEPARTMENT OF | | | PATHOLOGY | + + + + + + + + | Performing | Address | City/State/Zipcode | Phone Number | | Organization | | | | + + + + + | [facility] DEPARTMENT OF | [address] [facility] | [place] [address] | | | PATHOLOGY | [address] | | | + + + + + | [place] DEPARTMENT OF | [address] | [place] [address] | | | PATHOLOGY | [address] [...] + + | [facility] DEPARTMENT | [address] | [place] [address] | | | PATHOLOGY | [address] | | | + + + + + | [facility] | [address] | [place] [address] | | | PATHOLOGY | [address] [...] + | [facility] | [address] | [place] [address] | | | PATHOLOGY | [address] | | | + + + + + | [facility] | [address] | [place] [address] | | | PATHOLOGY | [address] [...] DEPARTMENT OF | [address] | [place] [address] | | | PATHOLOGY | [address] | | | + + + + + | [facility] DEPARTMENT OF | [address] | [place] [address] | | | PATHOLOGY | [address] [...] DEPARTMENT OF | [address] | [place] [address] | | | PATHOLOGY | [address] | | | + + + + + | [facility] DEPARTMENT OF | [address] | [place] [address] | | | PATHOLOGY | [address] [...] + + | [facility] DEPARTMENT | [address] | [place] [address] | | | PATHOLOGY | [address] | | | + + + + + | [facility] DEPARTMENT OF | [address] | [place] [address] | | | PATHOLOGY | [address] | | | + + + + + documented in this encounter Visit Diagnoses Not on filedocumented in this encounter"
--- OUTSIDE RECORDS SUMMARY | ~2019-10-16 | XMS | Encounter Summary ---
Demographics + + + | Address | [address] | | | [place] [address] | + + + | Home Phone [...] Providers + +------+ + | Care Senior Analyst Market Intelligence Name | Role | Phone | + [...] + + | 07/24/ | Office | [facility] Comprehensive | Delfina Lambert, | Chronic Bilateral | | 2008 | Visit | Pain Center at | ANP | Shoulder Pain | | | | [facility] | | (Primary Dx); Spinal | | | | [address] | | Fusion Lumbar spine | | | | Mailcode: CH15P | | ; LBP (Low Back | | | | [facility] | | Pain); Osteopenia; | | | | and Healing, | | Fibromyalgia | | | | Building | | syndrome 7[address]; | | | | Floor [place], [place] | | Major Depressive | | | | [address] | | Disorder, Recurrent | | | | [phone] | | Episode, Moderate | | | | | | ([facility]); Adjustment | | | | | | [...] Belinda Meehan is a 48 y.o. female [facility] Comprehensive Pain [...] drawing has be completed, which I reviewed. [facility] Brief Pain Inventory: (ten= worst [...] 300 mg) by oral route once daily ltxvtuwvbm-sflysiohsisjk-occzixcm (FIORICET) 50-325-40 mg Oral Tablet take 2 [...] 278 01/18 Paniculectomy Hx lumbar fusion 05/2008 L1-D0ixxjbv with bone spur removals Family History Problem [...] plain x rays of bilateral shoulders, today [facility] building third floor, I reviewed the right [...] [facility] Mail code CH 4P [facility] [address] [place] [address] Ailyn Bello - 02/2009 3:13 PM [...] | | + +---------+ + + | [facility] DEPARTMENT OF | | | [...]
--- OUTSIDE RECORDS SUMMARY | ~2019-10-16 | XMS | Encounter Summary ---
Demographics + + + | Address | [address] | | | [place] [address] | + + + | Home Phone [...] Providers + +------+ + | Care Special Services Supervisor Name | Role | Phone | [...] + | 03/05/ | Telephone | [facility] | Alanis, | Other | | 2018 | | MEDICINE [address] [place] [address] | MD Petrona | | | | | [facility] | [address] [place] [address] | | | | | [place] [address] | [place] [address] | | | | | [phone] | [phone] | | | | | | | [...] | | | | | [place] [address] | | | | | | [phone] | | | | | | | | +--------+ + + + + | 12/20/ | Office | Audiology | Elisabet Munson MS | | 2019 | Visit | | [facility] [address] | | | | | | [address] [place] | | | | | | [place] [address] | | | | | | [phone] | | | | | | | | +--------+ + + + + | 12/20/ | Office | Otolaryngology | Ulysses Genao MD | | | 2019 | Visit | | [address] [facility] | | | | | | [address] [place], | | | | | | [place] [address] | | | | | | [phone] | | | | | | | | +--------+ + + + + documented as of this encounter Visit Diagnoses + + | Diagnosis | + + | Non-intractable vomiting with nausea, unspecified vomiting type - Primary | + + documented in this encounter"
--- OUTSIDE RECORDS SUMMARY | ~2019-10-16 | XMS | Encounter Summary ---
Demographics + + + | Address | [address] | | | [place] [address] | + + + | Home Phone [...] Team Providers + +------+ + | Care Nail Specialist Name | Role | Phone | [...] Densitometry | | MD Beto | Density [facility] | | | | | Osteoporosis | [address] | [address] | | | | | Procedures | Ave | Naeem Mcrae | | | | | CONSULT TO | [place], [place] | Rd Mailcode: | | | | | BONE | [address] | [address] | | | | | DENSITOMETRY | Phone: | Naeem De La Rosa | | | | | | [phone] | [place], [place] | | | | | | Fax: | [address] | | | | | | [phone] | Phone: | | | | | | | [phone] | | | | | | | Fax: | | | | | | | [phone] | +--------+--------+ + + + + Encounter Details +--------+---------+ + + + | Date | Type | Department | Care Team | Description | +--------+---------+ + + + | 08/23/ | Office | Endocrinology, | Sjh, Bmd Dexa | Other Osteoporosis | | 2007 | Visit | Diabetes and | [address] | (Primary Dx); | | | | Clinical Nutrition | [facility], | Symptomatic | | | | [address] | [place] [address] | Menopausal or Female | | | | [facility] Mailcode: | | Climacteric States; | | | | [address] | | Disorder of Bone | | | | [facility], [place] | | and Cartilage, | | | | [address] | | Unspecified | | | | [phone] | | | +--------+---------+ + + + [...] | | + +---------+--------+ + + | [place] DXA BONE | Imaging | Routin | [...]
--- OUTSIDE RECORDS SUMMARY | ~2019-10-16 | XMS | Encounter Summary ---
Demographics + + + | Address | [address] | | | [place] [address] | + + + | Home Phone [...] Providers + +------+ + | Care Steel Sash Erector Name | Role | Phone | + [...] | | | | [id number] Physician's | [place], [place] | | | | | [address] | [address] | | | | | [place], [place] | [phone] | | | | | [address] | | | | | | [phone] | | | +--------+ + + + [...]
--- OUTSIDE RECORDS SUMMARY | ~2019-10-16 | XMS | Encounter Summary ---
Demographics + + + | Address | [address] | | | [place] [address] | + + + | Home Phone [...] Providers + +------+ + | Care Insurance Administrative Assistant Name | Role | Phone [...] + | 06/25/ | Refill | [facility] | Alanis, | Medication Refill | | 2018 | | MEDICINE [address] [place] [address] | MD Petrona | | | | | [facility] | [address] [place] [address] | | | | | [place] [address] | [place] [address] | | | | | [phone] | [phone] | | | | | | | [...] | | | | | [place] [address] | | | | | | [phone] | | | | | | | | +--------+ + + + + | 12/20/ | Office | Audiology | Elisabet Munson | | | 2019 | Visit | | [facility] [address] | | | | | [address] [place] | | | | | | [place] [address] | | | | | | [phone] | | | | | | | | +--------+ + + + + | 12/20/ | Office | Otolaryngology | Ulysses Genao MD | | | 2019 | Visit | | [address] | | | | | | [address] [place], | | | | | | [place] [address] | | | | | | [phone] | | | | | | | | +--------+ + + + + documented as of this encounter Visit Diagnoses + + | Diagnosis | + + | Nausea - Primary Nausea alone | + + documented in this encounter"
--- OUTSIDE RECORDS SUMMARY | ~2019-10-16 | XMS | Encounter Summary ---
Demographics + + + | Address | [address] | | | [place] [address] | + + + | Home Phone [...] Providers + +------+ + | Care Supervisor Paper Machine Name | Role | Phone | [...] + + | 09/23/ | Office | [facility] Comprehensive | Lou Molinae, | Spondylosis with | | 2006 | Visit | Pain Center at | ANP | Myelopathy, Lumbar | | | | [facility] | | Region; Herniated | | | | [address] | | Lumbar | | | | Mailcode: CH15P | | Intervertebral Disc | | | | [place] [facility] | | L4-5; Right shoulder | | | | and Healing, | | rotator cuff | | | | Building | | strain; DJD | | | | Floor [place], [place] | | (Degenerative Joint | | | | [address] | | Disease) of Left | | | | [phone] | | Knee; Migraine | | | [...] 72 hours on schedule 2. Continue with [place] 10/325 1 tablet three times per day [...] 72 hours on schedule 2. Continue with [place] 10/325 1 tablet three times per day as needed for increased pain wit h activity. 3. Continue with Trileptal 150mg, 1 tablet twice a day 4. Continue with PT and psychology as scheduled 5. Follow up with Delfina Molina in 4 weeks or sooner if needed. 6. Continue with orthopedic and neurology evaluations as scheduled DELFINA MOLINA [facility] Comprehensive Pain Center Mail code CH 4P [place] [facility] and [address] [address] Ty Omalley - 9:28 AM [...] Yes , Fentanyl patch documented in this [facility] Plan of Treatment Not on filedocumented as [...]
--- OUTSIDE RECORDS SUMMARY | ~2019-10-16 | XMS | Encounter Summary ---
Demographics + + + | Address | [address] | | | [place] [address] | + + + | Home Phone [...] Team Providers + +------+ + | Care Travel Ticketing Reviewer Name | Role | Phone | + [...] + + | 01/25/ | Telephone | [facility] INTERNAL | Alanis, | Medical Problem | | 2017 | | MEDICINE [address] [place] [address] | MD Petrona | | | | | [facility] | [address] [place] [address] | | | | | [place] [address] | [place] [address] | | | | | [phone] | [phone] | | | | | | | [...] | | | | | | [place] [address] | | | | | | [phone] | | | | | | | | +--------+ + + + + | 12/20/ | Office | Audiology | Ceasar MunsonahMS | | | 2019 | Visit | | [facility] [address] | | | | | | [address] [place] | | | | | | [place] [address] | | | | | | [phone] | | | | | | | | +--------+ + + + + | 12/20/ | Office | Otolaryngology | Ulysses Genao MD | | | 2019 | Visit | | [address] | | | | | | [address] [place], | | | | | | [place] [address] | | | | | | [phone] | | | | | | | | +--------+ + + + + documented as of this encounter Visit Diagnoses Not on filedocumented in this encounter"
--- OUTSIDE RECORDS SUMMARY | ~2019-10-16 | XMS | Encounter Summary ---
Demographics + + + | Address | [address] | | | [place] [address] | + + + | Home Phone [...] Team Providers + +------+ + | Care Ct Scan Technologist Name | Role | Phone | [...] | | Center at [facility] [address] | [address] | | | | | [place] | , [address] | | | | | Mailcode: Center | [place], [place] | | | | | [facility] Health and | [address] | | | | | Healing, Building [address] | [phone] | | | | | [place], [place] | | | | | | [address] | | | | | | [phone] | | | +--------+ + + + [...]
--- OUTSIDE RECORDS SUMMARY | ~2019-10-16 | XMS | Encounter Summary ---
Demographics + + + | Address | [address] | | | [place] [address] | + + + | Home Phone [...] Team Providers + +------+ + | Care Exterminator Helper Name | Role | Phone | [...] | Services | Therapy | Other | [facility] | HOSPITAL | | | Required | | idiopathic | i, | PHYSICAL | | | | | scoliosis, | [facility]ell | THERAPY [address] | | | | | lumbar | , [address] | [place] | | | | | region | [address] | [place], [place] | | | | | Chronic | [place], | [address] | | | | | bilateral | [place] | Phone: | | | | | low back | [address] | [phone] | | | | | pain with | Phone: | Fax: | | | | | bilateral | [phone] | [phone] | | | | | sciatica | Fax: | | | | | | Procedures | [phone] | | | | | | 07/20 [...] + + | 07/18/ | Office | [facility] | Alanis, | Chronic bilateral | | 2020 | Visit | MEDICINE [address] [place] [address] | MD Petrona | low back pain with | | | | Street [address] | [address] [facility] | bilateral sciatica | | | | [place] [address] | [place] [address] | (Primary Dx); Other | | | | [phone] | [phone] | idiopathic | | | | | [...] issues: Patient recently did an MRI in [place], [place], after which she had a steroid injection in her tho racic spine for a bulging disc and chronic pain. So far it has helped just a little bit. Kevin rodriguez complains of not being bale to sleep, [...] Common migraine COPD (chronic obstructive pulmonary disease) ([facility]) Depression Diarrhea Dumping syndrome Fall at home Fatigue fracture of vertebra Fibromyalgia Full dentures GERD (gastroesophageal reflux disease) Glaucoma Hyperparathyroidism ([facility]) Hypothyroidism IBS (irritable bowel syndrome) Idiopathic scoliosis Leg edema Low back pain Lumbar postlaminectomy syndrome Lumbar radiculopathy primarily right 01/04/2015 Meniere syndrome Migraine with aura Migraines Muscle cramping Muscle spasm Myalgia Nausea Nonalcoholic hepatosteatosis Obesity Opioid dependence ([facility]) Orthostatic hypotension OLIVER (obstructive sleep apnea) Osteoarthritis, generalized Osteopenia Osteoporosis Palpitations Peripheral neuropathy Rheumatoid arthritis ([facility]) Right arm pain 01/04/2015 RLS (restless legs syndrome) S/P lumbar fusion 01/04/2015 Scoliosis Sleep apnea Spondylosis with myelopathy, lumbar region Stroke ([facility]) Syncope Tremor Type II [...] Allergen Reactions Ensure Diarrhea Food Diarrhea Lactose Wdeelmtmew-Tiw-Pjsn-Codeine Other (See Comments) Balance problems Codeine Sulfate Nausea Only Food Allergy Formula Diarrhea Ensure Levofloxacin Hives, Itching and Rash Butalbital Ropinirole Amitriptyline Hcl Other (See Comments) Confused and questionable for seizures Ldkyythqtu-Wnxw-Bopswflq Rash duplicate Hqvrvaekya-Ybje-Ofzyrnmb Hives and Rash Cephalexin Hives Ciprofloxacin Hives and Rash Clarithromycin Hives and Rash Clindamycin Hcl Hives and Rash Doxycycline Rash Duloxetine Other (See Comments) Migraines and nausea Ketorolac Hives Levofloxacin Hives and Rash Morphine Swelling Penicillins Hives and Rash Ropinirole Hcl Hives Sulfamethoxazole-Trimethoprim Hives and Rash Tramadol Hcl Nausea Only FOLLOW-UP No follow-ups on file. Notes: 1. Parts of this documentwere created using [email or web address] speech recognition software. As a resu lt, [...] | | | | | [place] [address] | | | | | | [phone] | | | | | | | | +--------+ + + + + | 12/20/ | Office | Audiology | Elisabet Munson MS | | 2019 | Visit | | CASSANDRA MACK | | | | | | [facility] [address] [place] | | | | | | [place] [address] | | | | | | [phone] | | | | | | | | +--------+ + + + + | 12/20/ | Office | Otolaryngology | Ulysses Genao MD | | | 2019 | Visit | | [address] [facility] | | | | | | [address] [place], | | | | | | [place] [address] | | | | | | [phone] | | | | | | | [...] + | [address] | [address] | [place] | [phone] | | [facility] | | [address] | | | - LABORATORY | | [...] | | | | First dose on [facility] 10/15/17 at 1215 | | | | [...]
--- OUTSIDE RECORDS SUMMARY | ~2019-10-16 | XMS | Encounter Summary ---
Demographics + + + | Address | [address] | | | [place] [address] | + + + | Home Phone [...] Providers + +------+ + | Care Tool And Fixture Repairer Name | Role | Phone | [...] | | | | | hemorrhoid | [place], [place] | [address] | | | | | Rectal pain | [address] | [facility] | | | | | Procedures | | Rd [place], | | | | | CONSULT TO | | [place] | | | | | [place] | | [address] | | | | | SURGERY | | Phone: | | | | | | | [phone] | | | | | | | Fax: | | | | | | | [phone] | +--------+--------+ + + + + Encounter [...] | | | | Mailcode: Center | [place], [place] | | | | | [facility] and | [address] | | | | | [facility] 2 | [phone] | | | | | [place], [place] | | | | | | [address] | | | | | | [phone] | | | +--------+---------+ + + + [...] stool. She had a normal colonoscopy at [facility] in 2005 PMH: Past Medical History Diagnosis [...] 08/2007 right knee Hx lumbar fusion 05/2008 L5-D0sfvaay with bone spur removals Hx appendectomy Hx [...] (Ciprofloxacin) Tramadol Morphine IM ( only in [facility]) made gut pain worse 08/27/06: Trial of oral MSIR caused leg swelling Clarithromycin Hives Mainly in the legs Hllrefs-mgpchyqbey-pzz-caff Balance problems Amitriptyline Grand mal seizures SH: [...] + + +--------+ + + | CO DIAGNOSTIC | Procedures | Routin | Anal or Rectal | Ordered: 10/05/2008 | | ANOSCOPY | | e | Pain | | + + +--------+ + + documented as of this encounter Visit Diagnoses + + | Diagnosis | + + | Anal or rectal pain - Primary | + + documented in this encounter
--- OUTSIDE RECORDS SUMMARY | ~2019-10-16 | XMS | Encounter Summary ---
Demographics + + + | Address | [address] | | | [place] [address] | + + + | Home Phone [...] + +------+ + | Care Water Quality Technician Name | Role | Phone | [...] + + | 05/06/ | Telephone | [facility] | Alanis, | Other | | 2017 | | MEDICINE [address] [place] [address] | MD Petrona | | | | | [facility] | [address] [place] [address] | | | | | [place] [address] | [place] [address] | | | | | [phone] | [phone] | | | | | | | [...] | | | | | [place] [address] | | | | | | [phone] | | | | | | | | +--------+ + + + + | 12/20/ | Office | Audiology | Elisabet Munson MS | | 2019 | Visit | | [facility] [address] | | | | | | [address] [place] | | | | | | [place] [address] | | | | | | [phone] | | | | | | | | +--------+ + + + + | 12/20/ | Office | Otolaryngology | Ulysses Genao MD | | | 2020 | Visit | | [address] [facility] | | | | | | [address] [place], | | | | | | [place] [address] | | | | | | [phone] | | | | | | | | +--------+ + + + + documented as of this encounter Visit Diagnoses Not on filedocumented in this encounter"
--- OUTSIDE RECORDS SUMMARY | ~2019-10-16 | XMS | Encounter Summary ---
Demographics + + + | Address | [address] | | | [place] [address] | + + + | Home Phone [...] Team Providers + +------+ + | Care Meteorologist In Charge Name | Role | Phone | [...] | | [facility] [address] | [employer] [address] | | | | | Sara Kovacs | , [address] | | | | | Mailcode: Center | [place], [place] | | | | | [facility] Health and | [address] | | | | | Healing, Building 2 | [phone] | | | | | [place], [place] | | | | | | [address] | | | | | | [phone] | | | +--------+ + + + [...]
--- OUTSIDE RECORDS SUMMARY | ~2019-10-16 | XMS | Encounter Summary ---
Demographics + + + | Address | [address] | | | [place] [address] | + + + | Home Phone [...] Team Providers + +------+ + | Care Ceramics Engineer Name | Role | Phone | [...] + + | 01/18/ | Refill | [facility] | Alanis, | Medication Refill; | | 2018 | | MEDICINE [address] | MD Petrona | Medication Refill | | | | [facility] | [address] [place] [address] | | | | | [place] [address] | [place] [address] | | | | | [phone] | [phone] | | | | | | | [...] | | | | | [place] [address] | | | | | | [phone] | | | | | | | | +--------+ + + + + | 12/20/ | Office | Audiology | Elisabet Munson MS | | | 2019 | Visit | | [facility] [address] | | | | [address] [place] | | | | | | [place], [place] [address] | | | | | | [phone] | | | | | | | | +--------+ + + + + | 12/20/ | Office | Otolaryngology | Ulysses Genao MD | | | 2019 | Visit | | [address] | | | | | | [address] [place], | | | | | | [place] [address] | | | | | | [phone] | | | | | | | | +--------+ + + + + documented as of this encounter Visit Diagnoses Not on filedocumented in this encounter"
--- OUTSIDE RECORDS SUMMARY | ~2019-10-16 | XMS | Encounter Summary ---
Demographics + + + | Address | [address] | | | [place] [address] | + + + | Home Phone [...] Team Providers + +------+ + | Care Conservation Assistant Name | Role | Phone | [...] | +--------+ + + + + | 05/18/ | Telephone | [facility] | Alanis, | Referral | | 2017 | | MEDICINE [address] [place] [address] | MD Petrona | | | | | [facility] | [address] [place] [address] | | | | | [place] [address] | [place] [address] | | | | | [phone] | [phone] | | | | | | | [...] | | | | | [place] [address] | | | | | | [phone] | | | | | | | | +--------+ + + + + | 12/20/ | Office | Audiology | Elisabet Munson MS | | 2019 | Visit | | [facility] [address] | | | | | [address] [place] | | | | | | [place] [address] | | | | | | [phone] | | | | | | | | +--------+ + + + + | 12/20/ | Office | Otolaryngology | Ulysses Genao MD | | | 2020 | Visit | | [address] | | | | | | [address] [place], | | | | | | [place] [address] | | | | | | [phone] | | | | | | | | +--------+ + + + + documented as of this encounter Visit Diagnoses Not on filedocumented in this encounter"
--- OUTSIDE RECORDS SUMMARY | ~2019-10-16 | XMS | Encounter Summary ---
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; | | | | [address] | | Pain in right Ankle | | | | Mailcode: CH15P | | and Foot; Right Hip | | | | Center for [facility] | | Region Pain; | | | | and Healing, | | 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 female [facility] Comprehensive Pain Center Return [...] Simons. We reviewed materials risk notice and [facility] opioid agreement. A ll questions were [...] management and reduce opioid need. DELFINA MOLINA [facility] Pain Center Mail code CH 4P [facility] [address] [facility] [address] Ailyn Foster 12/22/19 12:51 PM PDTCMA [...] + + | Opioid dependence, continuous ([facility]) Opioid type dependence, continuous | + [...]
--- OUTSIDE RECORDS SUMMARY | ~2019-10-16 | XMS | Encounter Summary ---
Demographics + + + | Address | [address] | | | [place] [address] | + + + | Home Phone [...] Providers + +------+ + | Care Photographic Laboratory Supervisor Name | Role | Phone | [...] + + | 07/20/ | Telephone | [facility] | Alanis, | Immunizations | | 2019 | | MEDICINE [address] [place] [address] | MD Petrona | | | | | [facility] | [address] [place] [address] | | | | | [place] [address] | [place] [address] | | | | | [phone] | [phone] | | | | | | | [...] | | | | | [place] [address] | | | | | | [phone] | | | | | | | | +--------+ + + + + | 12/20/ | Office | Audiology | Elisabet Munson MS | | | 2019 | Visit | | [facility] [address] | | | | [address] [place] | | | | | | [place] [address] | | | | | | [phone] | | | | | | | | +--------+ + + + + | 12/20/ | Office | Otolaryngology | Ulysses Genao MD | | | 2019 | Visit | | [address] | | | | | | [address] [place], | | | | | | [place] [address] | | | | | | [phone] | | | | | | | [...]
--- OUTSIDE RECORDS SUMMARY | ~2019-10-16 | XMS | Encounter Summary ---
Demographics + + + | Address | [address] | | | [place] [address] | + + + | Home Phone [...] Providers + +------+ + | Care Freight Traffic Consultant Name | Role | Phone | [...] + + | 03/03/ | Telephone | [facility] | Alanis, | Medication Question | | 2017 | | MEDICINE [address] [place] [address] | MD Petrona | | | | | [facility] | [address] [place] [address] | | | | | [place] [address] | [place] [address] | | | | | [phone] | [phone] | | | | | | | [...] | | | | | [place] [address] | | | | | | [phone] | | | | | | | | +--------+ + + + + | 12/20/ | Office | Audiology | Elisabet Munson MS | | | 2019 | Visit | | [facility] [address] | | | | | [address] [place] | | | | | | [place] [address] | | | | | | [phone] | | | | | | | | +--------+ + + + + | 12/20/ | Office | Otolaryngology | Ulysses Genao MD | | | 2019 | Visit | | [address] | | | | | | [address] [place], | | | | | | [place] [address] | | | | | | [phone] | | | | | | | | +--------+ + + + + documented as of this encounter Visit Diagnoses Not on filedocumented in this encounter"
--- OUTSIDE RECORDS SUMMARY | ~2019-10-16 | XMS | Encounter Summary ---
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
--- OUTSIDE RECORDS SUMMARY | ~2019-10-16 | XMS | Encounter Summary ---
Demographics + + + | Address | [address] | | | [place] [address] | + + + | Home Phone [...] Team Providers + +------+ + | Care Signal Intelligence Analyst Name | Role | Phone [...] | | | | | RE/Emmy | [place], [place] | [place], [place] | | | | | Procedures | [address] | [address] Phone: | | | | | [place] | Phone: | [phone] | | | | | SPONTANEOUS | [phone] | Fax: | | | | | [facility] | Fax: | [phone] | | | | | TEST RI | [phone] | | | | | | POSITIONAL | | | | | | | [facility] | | | | | | | TEST RI | | | | | | | CALORIC | | | | | | | VESTIBULAR | | | | | | | TEST RI | | | | | | | OPTOKINETIC | | | | | | | [facility] | | | | | | | TEST RI | | | | | | | OSCILLATING | | | | | | | TRACKING | | | | | | | TEST RI | | | | | | | SUPPLEMENTAL | | | | | | | ELECTRICAL | | | | | | | TEST RI | | | | | | [...] + | 12/07/ | Office | [facility] | [place]ab[place], [place] | Vertigo of central | | 2015 | Visit | AUDIOLOGY AND | [facility] [address] | origin, unspecified | | | | [facility] | [address] [facility] | laterality (Primary | | | | [address] | [place] [address] | Dx) | | | | [facility] | [phone] | | | | | [place] [address] | | | | | | [phone] | | | +--------+---------+ + + + [...] [facility] - 12/07/2014 2:12 PM PDTReferring Provider: Ulysess Genao M.D. VNG testing revealed abnormal oculomotor subtests. Critz [place] pike revealed nystagmus when [...] | | | | | [place] [address] | | | | | | [phone] | | | | | | | | +--------+ + + + + | 12/20/ | Office | Audiology | Elisabet Munson MS | | | 2019 | Visit | | [facility] [address] | | | | | [address] [place] | | | | | | [place] [address] | | | | | | [phone] | | | | | | | | +--------+ + + + + | 12/20/ | Office | Otolaryngology | Ulysses Genao MD | | 2019 | Visit | | [address] | | | | | | [address] [place], | | | | | | [place] [address] | | | | | | [phone] | | | | | | | [...]
--- OUTSIDE RECORDS SUMMARY | ~2019-10-16 | XMS | Encounter Summary ---
Demographics + + + | Address | [address] | | | [place] [address] | + + + | Home Phone [...] Team Providers + +------+ + | Care Help Desk Consultant Name | Role | Phone | [...] PHYSIATRY [address] | MD [address] | | | | | [address] | [place] | | | | | [place], [place] | [address] | | | | | [address] | | | | | | [phone] | | | +--------+ + + + [...] | | | | | [place] [address] | | | | | | [phone] | | | | | | | | +--------+ + + + + | 12/20/ | Office | Audiology | Elisabet Munson MS | | | 2019 | Visit | | [facility] [address] | | | | | | [place] [address] [place] | | | | | | [place] [address] | | | | | | [phone] | | | | | | | | +--------+ + + + + | 12/20/ | Office | Otolaryngology | Ulysses Genao MD | | | 2020 | Visit | | [address] | | | | | | [address] [place], | | | | | | [place] [address] | | | | | | [phone] | | | | | | | | +--------+ + + + + documented as of this encounter Visit Diagnoses Not on filedocumented in this encounter"
--- OUTSIDE RECORDS SUMMARY | ~2019-10-16 | XMS | Encounter Summary ---
Demographics + + + | Address | [address] | | | [place] [address] | + + + | Home Phone [...] Team Providers + +------+ + | Care Necktie Operator Pockets And Pieces Name | Role | Phone | + [...] | | [facility] [address] | [address]ATBUILDER APPRENTICE [address] | | | | | [place] | , [address] | | | | | Mailcode: Center | [place], [place] | | | | | [facility] and | [address] | | | | | Healing, Building [address] | [phone] | | | | | [place], [place] | | | | | | [address] | | | | | | [phone] | | | +--------+ + + + [...]
--- OUTSIDE RECORDS SUMMARY | ~2019-10-16 | XMS | Encounter Summary ---
Demographics + + + | Address | [address] | | | [place] [address] | + + + | Home Phone [...] Team Providers + +------+ + | Care Rent And Housing Investigator Name | Role | Phone | [...] Refill Request | | 2008 | | [place] [address] | [address] | (Sucralfate) | | | | [place] Mailcode: CH4S | [facility] | | | | | [facility] | [place], [place] | | | | | and [place], | [address] | | | | | [facility] | [phone] | | | | | Floor [place], [place] | | | | | | [address] | | | | | | [phone] | | | +--------+--------+ + + + [...]
--- OUTSIDE RECORDS SUMMARY | ~2019-10-16 | XMS | Encounter Summary ---
Demographics + + + | Address | [address] | | | [place] [address] | + + + | Home Phone [...] Team Providers + +------+ + | Care Municipal Clerk Name | Role | Phone | [...] + + | 09/16/ | Telephone | [facility] | Alanis, | Results, Imaging | | 2019 | | MEDICINE [address] | MD [place] | | | | | [facility] | [address] [place] [address] | | | | | [place] [address] | [place] [address] | | | | | [phone] | [phone] | | | | | | | [...] | | | | | [place] [address] | | | | | | [phone] | | | | | | | | +--------+ + + + + | 12/20/ | Office | Audiology | Elisabet Munson MS | | | 2019 | Visit | | [facility] [address] | | | | [address] [place] | | | | | | [place], [place] [address] | | | | | | [phone] | | | | | | | | +--------+ + + + + | 12/20/ | Office | Otolaryngology | Ulysses Genao MD | | | 2019 | Visit | | [address] | | | | | | [address] [place], | | | | | | [place] [address] | | | | | | [phone] | | | | | | | | +--------+ + + + + documented as of this encounter Visit Diagnoses Not on filedocumented in this encounter"
--- OUTSIDE RECORDS SUMMARY | ~2019-10-16 | XMS | Encounter Summary ---
Demographics + + + | Address | [address] | | | [place] [address] | + + + | Home Phone [...] Providers + +------+ + | Care Senior Radiation Protection Technician Name | Role | Phone | [...] as of this encounter Progress Notes Interface, Foot Cutter In - 07/09/2005 2:07 AM PST [id number] [facility] Date: 07/03/2005 Clinic: Ms. [...] this operation. Chris Padgett M.D. ROSA / [id number] / [id number] / [id number] / [id number] Electronically signed by Chris Padgett 07-08-2005 01:45:20 PM documented i n this encounter Plan of Treatment Not on filedocumented as of this encounter Visit Diagnoses Not on filedocumented in this encounter"
--- OUTSIDE RECORDS SUMMARY | ~2019-10-16 | XMS | Encounter Summary ---
Demographics + + + | Address | [address] | | | [place] [address] | + + + | Home Phone [...] Providers + +------+ + | Care Gas Stove Servicer Helper Name | Role | Phone | [...] + + | 02/01/ | Telephone | [facility] | Alanis, | Other (B12 shot) | | 2017 | | MEDICINE [address] [place] [address] | MD [place] | | | | | [facility] | [address] [place] [address] | | | | | [place] [address] | [place] [address] | | | | | [phone] | [phone] | | | | | | | [...] | | | | | [place] [address] | | | | | | [phone] | | | | | | | | +--------+ + + + + | 12/20/ | Office | Audiology | Eilsabet Munson MS | | 2019 | Visit | | [facility] [address] | | | | [address] [place] | | | | | | [place] [address] | | | | | | [phone] | | | | | | | | +--------+ + + + + | 12/20/ | Office | Otolaryngology | Ulysses Genao MD | | | 2020 | Visit | | [address] | | | | | | [address] [place], | | | | | | [place] [address] | | | | | | [phone] | | | | | | | | +--------+ + + + + documented as of this encounter Visit Diagnoses Not on filedocumented in this encounter"
--- OUTSIDE RECORDS SUMMARY | ~2019-10-16 | XMS | Encounter Summary ---
Demographics + + + | Address | [address] | | | [place] [address] | + + + | Home Phone [...] Team Providers + +------+ + | Care Shop Worker Name | Role | Phone | [...] of this encounter Progress Notes Interface, Medical Claims Examiner In - 01/11/2005 11:07 PM PDT Referred [...] is being seen by an orthopedist in [place]. She brings her brace today which she states is going well. The patient, however, yesterday awoke with neck stiffness and pain with spasming type pains in the area of her neck. She was seen in the emergency room last night in [place] for injection after a migraine. She states [...] Jesus M.D. Domingo Lozoya M.D. Gokul P [id number] cc: Pedrito Gutierrez MD [address] [place], [place] [email or web address] signed by Interface, Medical Claims Examiner In at 5 11:07 PM PDTdocumented in this encounter Plan of Treatment Not on filedocumented as of this encounter Visit Diagnoses Not on filedocumented in this encounter"
--- OUTSIDE RECORDS SUMMARY | ~2019-10-16 | XMS | Encounter Summary ---
Demographics + + + | Address | [address] | | | [place] [address] | + + + | Home Phone [...] Providers + +------+ + | Care Cable Television Program Director Name | Role | Phone | + +------+ + | Sulaiamn Carrera MD | PCP | | + +------+ + Encounter Details +--------+ + + + + | Date | Type | Department | Care Team | Description | +--------+ + + + + | 02/08/ | Telephone | Digestive Health | Chris Padgett, | | | 2008 | | [place] [address] | [address] [facility] | | | | | [place] Mailcode: CH4S | [address] | | | | | [facility] | [place], [place] | | | | | and Healing, | [address] | | | | | [place] [address], 6th | [phone] | | | | | Floor [place], [place] | | | | | | [address] | | | | | | [phone] | | | +--------+ + + + [...]
--- OUTSIDE RECORDS SUMMARY | ~2019-10-16 | XMS | Encounter Summary ---
Demographics + + + | Address | [address] | | | [place] [address] | + + + | Home Phone [...] Providers + +------+ + | Care Press Leader Name | Role | Phone | [...] + + | 08/03/ | Telephone | [facility] | Alanis, | Personal Problem | | 2019 | | MEDICINE [address] [place] [address] | MD Petrona | (Rash in private | | | | [facility] | [address] [facility] | [facility]) | | | | [place] [address] | [place] [address] | | | | | [phone] | [phone] | | | | | | | [...] | | | | | [place] [address] | | | | | | [phone] | | | | | | | | +--------+ + + + + | 12/20/ | Office | Audiology | Elisabet Munson MS | | | 2019 | Visit | | [facility] [address] | | [address] [place] | | | | | | [place], [place] [address] | | | | | | [phone] | | | | | | | | +--------+ + + + + | 12/20/ | Office | Otolaryngology | Ulysses Genao MD | | | 2019 | Visit | | [address] | | | | | | [address] [place], | | | | | | [place] [address] | | | | | | [phone] | | | | | | | | +--------+ + + + + documented as of this encounter Visit Diagnoses Not on filedocumented in this encounter"
--- OUTSIDE RECORDS SUMMARY | ~2019-10-16 | XMS | Encounter Summary ---
Demographics + + + | Address | [address] | | | [place] [address] | + + + | Home Phone [...] Team Providers + +------+ + | Care Book Sewing Machine Operator Name | Role | [...] + | 10/05/ | Telephone | [facility] | Alanis, | Appointment Question | | 2018 | | MEDICINE [address] [place] [address] | MD [place]ron[place] | | | | | [facility] | [address] [place] [address] | | | | | [place] [address] | [place] [address] | | | | | [phone] | [phone] | | | | | | | [...] | | | | | [place] [address] | | | | | | [phone] | | | | | | | | +--------+ + + + + | 12/20/ | Office | Audiology | Elisabet Munson MS | | | 2019 | Visit | | [facility] [address] | | | | [address] [place] | | | | | | [place] [address] | | | | | | [phone] | | | | | | | | +--------+ + + + + | 12/20/ | Office | Otolaryngology | Ulysses Genao MD | | | 2019 | Visit | | [address] | | | | | | [address] [place], | | | | | | [place] [address] | | | | | | [phone] | | | | | | | | +--------+ + + + + documented as of this encounter Visit Diagnoses Not on filedocumented in this encounter"
--- OUTSIDE RECORDS SUMMARY | ~2019-10-16 | XMS | Encounter Summary ---
Demographics + + + | Address | [address] | | | [place] [address] | + + + | Home Phone [...] Team Providers + +------+ + | Care Part Time Name | Role | Phone | + [...] + + | 07/06/ | Telephone | [facility] | Alanis, | Transfer Orders | | 2018 | | [address] | MD [place]ron[place] | | | | | [facility] | [address] [place] [address] | | | | | [place] [address] | [place] [address] | | | | | [phone] | [phone] | | | | | | | [...] | | | | | [place] [address] | | | | | | [phone] | | | | | | | | +--------+ + + + + | 12/20/ | Office | Audiology | Ceasar MunsonahMS | | | 2019 | Visit | | [facility] [address] | | | | | [address] [place] | | | | | | [place] [address] | | | | | | [phone] | | | | | | | | +--------+ + + + + | 12/20/ | Office | Otolaryngology | Ulysses Genao MD | | | 2019 | Visit | | [address] | | | | | | [address] [place], | | | | | | [place] [address] | | | | | | [phone] | | | | | | | | +--------+ + + + + documented as of this encounter Visit Diagnoses Not on filedocumented in this encounter"
--- OUTSIDE RECORDS SUMMARY | ~2019-10-16 | XMS | Encounter Summary ---
Demographics + + + | Address | [address] | | | [place] [address] | + + + | Home Phone [...] Providers + +------+ + | Care Instrument Assembly Supervisor Name | Role | Phone [...] | | | | | Procedures | [place], [place] | [address] [facility] | | | | | CONSULT TO | [address] | [address] | | | | | SURGERY - | | Rd [place], | | | | | GENERAL | | [place] | | | | | | | [address] | | | | | | | Phone: | | | | | | | [phone] | | | | | | | Fax: | | | | | | | [phone] | +--------+--------+ + + + + Encounter Details +--------+ + + + + | Date | Type | Department | Care Team | Description | +--------+ + + + + | 08/31/ | Practical Nursing Teacher | Dig[facility]ive Health | Nuris Cardenas ANP | Hemorrhoid (Primary | | 2008 | | Center [address] | | Dx) | | | | [address] | | | | | | Mailcode: [id number] | | | | | | [facility] | | | | | | [place], [place] | | | | | | [address] | | | | | | [phone] | | | +--------+ + + + [...]
--- OUTSIDE RECORDS SUMMARY | ~2019-10-16 | XMS | Encounter Summary ---
Demographics + + + | Address | [address] | | | [place] [address] | + + + | Home Phone [...] Providers + +------+ + | Care Family Service Worker Name | Role | Phone [...] of this encounter Progress Notes Interface, Cloth Hauler In - 01/12/2005 6:20 AM PDT [id number] [facility] Date: 11/18/2004 Clinic: General [...] patient to send pictures to our financial management analyst and graves registration specialist for evaluation for medicare for panniculectomy. Described [...] authorization for panniculectomy. Melisa Thorne / SHARIF [id number] / [id number] / [id number] / [id number] cc: Chris Padgett M.D. Joanna Valdez MD [facility] [address] [place] [address] Electronically signed by Kenisha Melton 11-26-2004 05:00:55 PM documented i n this encounter Plan of Treatment Not on filedocumented as of this encounter Visit Diagnoses Not on filedocumented in this encounter"
--- OUTSIDE RECORDS SUMMARY | ~2019-10-16 | XMS | Encounter Summary ---
Demographics + + + | Address | [address] | | | [place] [address] | + + + | Home Phone [...] Team Providers + +------+ + | Care Conduit Worker Name | Role | Phone | [...] + + | 04/25/ | Refill | [facility] | Alanis, | Medication Refill | | 2016 | | MEDICINE [address] [place] [address] | MD [place]rona | | | | | [facility] | [address] [place] [address] | | | | | [place] [address] | [place] [address] | | | | | [phone] | [phone] | | | | | | | [...] | | | | | [place] [address] | | | | | | [phone] | | | | | | | | +--------+ + + + + | 12/20/ | Office | Audiology | DarioElisabet ramires MS | | | 2019 | Visit | | [facility] [address] | | [address] [place] | | | | | | [place], [place] [address] | | | | | | [phone] | | | | | | | | +--------+ + + + + | 12/20/ | Office | Otolaryngology | Ulysses Genao MD | | | 2019 | Visit | | [address] | | | | | | [address] [place], | | | | | | [place] [address] | | | | | | [phone] | | | | | | | | +--------+ + + + + documented as of this encounter Visit Diagnoses Not on filedocumented in this encounter"
--- OUTSIDE RECORDS SUMMARY | ~2019-10-16 | XMS | Encounter Summary ---
Demographics + + + | Address | [address] | | | [place] [address] | + + + | Home Phone [...] Providers + +------+ + | Care Senior Abap Developer Name | Role | Phone | + +------+ + | Pedrito Gutierrez MD | PCP | | + +------+ + Encounter Details +--------+ + + + + | Date | Type | Department | Care Team | Description | +--------+ + + + + | 03/26/ | Telephone | [facility] Division of | Carlos Arreola, | | | 2005 | | Gastroenterology/Hep | [address] | | | | | atology [address] | [address] | | | | | [address] | [place] [address] | | | | | Mailcode: PV310 | [phone] | | | | | Physician[facility] | | | | | | [address] | | | | | | [place], [place] | | | | | | [address] | | | | | | [phone] | | | +--------+ + + + [...]
--- OUTSIDE RECORDS SUMMARY | ~2019-10-16 | XMS | Encounter Summary ---
Demographics + + + | Address | [address] | | | [place] [address] | + + + | Home Phone [...] Providers + +------+ + | Care Dental Appliance Fixer Name | Role | Phone | + [...] floor | | | | | | [place], [place] | | | | | | [address] | | | | | | [phone] | | | +--------+------+ + + + [...] [facility] | [address] [facility] | [place] [address] | | | PATHOLOGY | [address] | | | + + + + + | [facility] | [address] [facility] | [place] [address] | | | PATHOLOGY | [address] [...] Performed At | + + + | [id number] Estimated GFR > 60 mL/min/1.73 sq m if non- | [facility] | | Gren[place] 105043 Estimated GFR > 60 mL/min/1.73 sq m if | DEPARTMENT OF | | [place] GFR is estimated using the MDRD equation [...] CENTER DEPARTMENT | [address] | [place] [address] | | | PATHOLOGY | [address] | | | + + + + + | [facility] | [address] | [place] [address] | | | PATHOLOGY | [address] [...] RLB ([facility]) | | | [facility] [place] [address] [facility] | | | [place] [address] | | + + + + + + + + | Performing | Address | City/State/Zipcode | Phone Number | | Organization | | | | + + + + + | [facility] | [address] | [place] [address] | | | LABORATORY | | | [...] RLB ([address] [facility]) | | | [facility] [place] [address] | | | [place] [address] | | + + + + + + + + | Performing | Address | City/State/Zipcode | Phone Number | | Organization | | | | + + + + + | [facility] | [address] | [place] [address] | | | LABORATORY | | | | + + + + + documented in this encounter Visit Diagnoses + + | Diagnosis | + + | Hypothyroidism Unspecified hypothyroidism | + + | Edema | + + documented in this encounter"
--- OUTSIDE RECORDS SUMMARY | ~2019-10-16 | XMS | Encounter Summary ---
Demographics + + + | Address | [address] | | | [place] [address] | + + + | Home Phone [...] Team Providers + +------+ + | Care Tilt Wall Supervisor Name | Role | Phone | [...] | | [facility] [address] | MANAGER EMERGENCY DEPARTMENT [address] | | | | | [place] | , [address] | | | | | Mailcode: Center | [place], [place] | | | | | [facility] and | [address] | | | | | Healing, [address] | [phone] | | | | | [place], [place] | | | | | | [address] | | | | | | [phone] | | | +--------+ + + + [...]
--- OUTSIDE RECORDS SUMMARY | ~2019-10-16 | XMS | Encounter Summary ---
Demographics + + + | Address | [address] | | | [place] [address] | + + + | Home Phone [...] Team Providers + +------+ + | Care Remote Sensing Program Manager Name | Role | Phone | + +------+ + | Pedrito Gutierrez MD | PCP | | + +------+ + Encounter Details +--------+ + + + + | Date | Type | Department | Care Team | Description | +--------+ + + + + | 07/30/ | Office | [facility] [address] | Clinic, | Progress Note | | 2006 | Visit-Trans | [facility] | Endocrinology | | | | kutr | [place]a | | | | | | [facility], | | | | | | 7th floor | | | | | | [place], [place] | | | | | | [address] | | | | | | [phone] | | | +--------+ + + + [...] as of this encounter Progress Notes Interface, Tape Calender In - 09/16/2006 7:22 AM PDT [id number] GEOVANNI [place] [address] Clinic Date: 07/30/2006 Clinic: Endocrinology Subjective: Belinda [...] year. Beto Meeks M.D. PD / HS [id number] / [id number] / [id number] / [id number] cc: Joanna Arshad M.D. Jonathan Hitzman, M.D. [address] [facility] [place] [address] Electronically signed by Beto Meeks 09-15-2006 11:40:17 PM documented in this encounter Plan of Treatment Not on filedocumented as of this encounter Visit Diagnoses Not on filedocumented in this encounter"
--- OUTSIDE RECORDS SUMMARY | ~2019-10-16 | XMS | Encounter Summary ---
Demographics + + + | Address | [address] | | | [place] [address] | + + + | Home Phone [...] Providers + +------+ + | Care Community Product Specialist Name | Role | Phone | [...] + + | 01/01/ | Refill | [facility] | Alanis, | Medication Refill | | 2017 | | MEDICINE [address] [place] [address] | MD [place]ron[place] | | | | | [facility] | [address] [place] [address] | | | | | [place] [address] | [place] [address] | | | | | [phone] | [phone] | | | | | | | [...] | | | | | [place] [address] | | | | | | [phone] | | | | | | | | +--------+ + + + + | 12/20/ | Office | Audiology | DarioElisabet ramires MS | | | 2019 | Visit | | [facility] [address] | [address] [place] | | | | | | [place], [place] [address] | | | | | | [phone] | | | | | | | | +--------+ + + + + | 12/20/ | Office | Otolaryngology | Ulysses Genao MD | | | 2019 | Visit | | [address] | | | | | | [address] [place], | | | | | | [place] [address] | | | | | | [phone] | | | | | | | | +--------+ + + + + documented as of this encounter Visit Diagnoses Not on filedocumented in this encounter"
--- OUTSIDE RECORDS SUMMARY | ~2019-10-16 | XMS | Encounter Summary ---
Demographics + + + | Address | [address] | | | [place] [address] | + + + | Home Phone [...] Providers + +------+ + | Care Scale Shooter Name | Role | Phone | + [...] + | 09/04/ | Refill | [facility] | Alanis, | Medication Refill | | 2018 | | MEDICINE [address] [place] [address] | MD Petrona | | | | | [facility] | [address] [place] [address] | | | | | [place] [address] | [place] [address] | | | | | [phone] | [phone] | | | | | | | [...] | | | | | [place] [address] | | | | | | [phone] | | | | | | | | +--------+ + + + + | 12/20/ | Office | Audiology | DarioElisabet ramires MS | | | 2019 | Visit | | [facility] [address] | [address] [place] | | | | | | [place], [place] [address] | | | | | | [phone] | | | | | | | | +--------+ + + + + | 12/20/ | Office | Otolaryngology | Ulysses Genao MD | | | 2019 | Visit | | [address] | | | | | | [address] [place], | | | | | | [place] [address] | | | | | | [phone] | | | | | | | | +--------+ + + + + documented as of this encounter Visit Diagnoses Not on filedocumented in this encounter"
--- OUTSIDE RECORDS SUMMARY | ~2019-10-16 | XMS | Encounter Summary ---
Demographics + + + | Address | [address] | | | [place] [address] | + + + | Home Phone [...] Providers + +------+ + | Care Licensed Mortgage Loan Officer Name | Role | Phone | [...] | 2006 | Visit | [facility] [place] | MD Darrion,PhD [address] | (Primary Dx) | | | | for Health and | [address] | | | | | Healing [address] | [place], [place] | | | | | Ave Mailcode: | [address] | | | | | [facility] [place] for | [phone] | | | | | Health and Healing, | | | | | | [facility] [address] | | | | | | Floor [place], [place] | | | | | | [address] | | | | | | [phone] | | | +--------+---------+ + + + [...] (ciprofloxacin) Tramadol Morphine IM ( only in [facility]) made gut pain worse REVIEW OF [...] normal limits except as noted. RIGHT LEFT [place] Crepitation J Sign Apprehension LIGAMENTS: Within normal [...] are not effective. Angel Morales M.D., Ph.D. Enamel Sprayer, Surgical Seating And Mobility Technologist Orthopedics & Cartilage Reconstruction Surgery Department of Orthopedics [email or web address] documented in this encou nter Plan of Treatment Not on filedocumented as of this encounter Visit Diagnoses + + | Diagnosis | + + | Osteoarthrosis, unspecified whether generalized or localized, lower leg - Primary | + + documented in this encounter
--- OUTSIDE RECORDS SUMMARY | ~2019-10-16 | XMS | Encounter Summary ---
Demographics + + + | Address | [address] | | | [place] [address] | + + + | Home Phone [...] Providers + +------+ + | Care Travel Rn Name | Role | Phone | [...] [id number] | | | | | | [place] [facility] | | | | | | and Healing, | | | | | | | | | | | | Floor [place], [place] | | | | | | [address] | | | | | | [phone] | | | +--------+ + + + [...]
--- OUTSIDE RECORDS SUMMARY | ~2019-10-16 | XMS | Encounter Summary ---
Demographics + + + | Address | [address] | | | [place] [address] | + + + | Home Phone [...] Providers + +------+ + | Care Truck Jumper Name | Role | Phone | + +------+ + | Petrona Thapa | PCP | | | MD | | | + +------+ + Reason for Visit + + + | Reason | Comments | + + + | Skin Irritation | | + + + Encounter Details +--------+ + + + + | Date | Type | Department | Care Team | Description | +--------+ + + + + | 01/04/ | Telephone | [facility] | Alanis, | Skin Irritation | | 2017 | | MEDICINE [address] [place] [address] | MD Petrona | | | | | [facility] | [address] [place] [place] [address] | | | | | [place] [address] | [place] [address] | | | | | [phone] | [phone] | | | | | | | [...] | | | | | [place] [address] | | | | | | [phone] | | | | | | | | +--------+ + + + + | 12/20/ | Office | Audiology | Elisabet Munson MS | | | 2019 | Visit | | [facility] [address] | | | | [address] [place] | | | | | | [place] [address] | | | | | | [phone] | | | | | | | | +--------+ + + + + | 12/20/ | Office | Otolaryngology | Ulsyses Genao MD | | | 2019 | Visit | | [address] | | | | | | [address] [place], | | | | | | [place] [address] | | | | | | [phone] | | | | | | | | +--------+ + + + + documented as of this encounter Visit Diagnoses + + | Diagnosis | + + | Tinea cruris - Primary Dermatophytosis of groin and perianal area | + + documented in this encounter"
--- OUTSIDE RECORDS SUMMARY | ~2019-10-16 | XMS | Encounter Summary ---
Demographics + + + | Address | [address] | | | [place] [address] | + + + | Home Phone [...] Team Providers + +------+ + | Care Squirrel Man Name | Role | Phone | [...] + + | 05/28/ | Telephone | [facility] | Alanis, | Pain Management | | 2016 | | MEDICINE [address] [place] [address] | MD Petrona | | | | | [facility] | [address] [place] [address] | | | | | [place] [address] | [place] [address] | | | | | [phone] | [phone] | | | | | | | [...] | | | | | [place] [address] | | | | | | [phone] | | | | | | | | +--------+ + + + + | 12/20/ | Office | Audiology | Ceasar MunsonahMS | | | 2019 | Visit | | [facility] [address] | | | | [address] [place] | | | | | | [place] [address] | | | | | | [phone] | | | | | | | | +--------+ + + + + | 12/20/ | Office | Otolaryngology | Ulysses Genao MD | | | 2019 | Visit | | [address] | | | | | | [address] [place], | | | | | | [place] [address] | | | | | | [phone] | | | | | | | | +--------+ + + + + documented as of this encounter Visit Diagnoses Not on filedocumented in this encounter"
--- OUTSIDE RECORDS SUMMARY | ~2019-10-16 | XMS | Encounter Summary ---
Demographics + + + | Address | [address] | | | [place] [address] | + + + | Home Phone [...] Providers + +------+ + | Care General Office Worker Name | Role | Phone | + +------+ + | Petrona Thapa | PCP | | | MD | | | + +------+ + Reason for Visit + + + | Reason | Comments | + + + | Medication Refill | | + + + | Infusion | Reclast due approx 07/29/17, [facility] | + + + Encounter Details +--------+---------+ + + + | Date | Type | Department | Care Team | Description | +--------+---------+ + + + | 07/16/ | Office | [facility] | Emmy-Tajti, | Other osteoporosis, | | 2018 | Visit | MEDICINE [address] | MD Petrona | unspecified | | | | [address] [place] | [address] [facility] | pathological | | | | [place] [address] | [place] [address] | fracture presence | | | | [phone] | [phone] | (Primary Dx); | | | | [...] approx 07/29/17, last one done at the [facility] Belinda Meehan is a 57 y.o. y/o [...] She is seeing a pain specialist in [place] and is receiving hydrocodone from them. She needs a refill of Lomotil for chronic diarrhea which she tolerates well. She also reports some discomfort in the left nostril which is plugged most of the time for last several weeks. No fever or chills. No purulent drainage. Has history of allergies. RE[facility]. Review of systems otherwise negative. PAST MEDICAL HISTORY Past Medical History: Diagnosis Date Arthritis Atypical chest pain Benign essential hypertension Blind left eye Cervical radiculopathy Chronic low back pain 01/04/2015 Chronic neck pain 01/04/2015 Chronic pain Chronic venous insufficiency Coccydynia COPD (chronic obstructive pulmonary disease) ([facility]) Depression Diarrhea Dumping syndrome Fatigue fracture of vertebra Fibromyalgia Glaucoma Hyperparathyroidism (HCC) Hypothyroidism IBS (irritable bowel syndrome) Idiopathic scoliosis Leg edema Lumbar postlaminectomy syndrome Lumbar radiculopathy primarily right 01/04/2015 Meniere syndrome Migraines Muscle cramping Muscle spasm Myalgia Nonalcoholic hepatosteatosis Obesity Opiate dependence (HCC) Orthostatic hypotension OLIVER (obstructive sleep apnea) Osteoarthritis, generalized Osteopenia Osteoporosis Peripheral neuropathy ([facility]) Rheumatoid arthritis ([facility]) Right arm pain 01/04/2015 RLS (restless legs syndrome) S/P lumbar fusion 01/04/2015 Scoliosis Spondylosis with myelopathy, lumbar region Stroke ([facility] [...] (See Comments) Confused and questionable for seizures Taauressap-Lprt-Pijlzajv Cephalexin Hives Duloxetine Migraines and nausea Ketorolac Hives Morphine Swelling Ropinirole Hcl Hives Tramadol Hcl Nausea Only Dnncoyqgww-Rbfd-Qhjydkyh Hives and Rash Ciprofloxacin Hives and Rash [...] Note: Parts of this documentwere created using Your Image by [employer] speech recognition software. As a r esult, there may be unintended word spelling errors. Every attempt was made to correct the dictation. Anastasia Bonilla LPN - 07/16/2017 10:00 AM PST Vitamin B12 1000mcg given IM left deltoid. Patient tolerated injection well. docushazia in this enc ounter Plan of Treatment [...] | | | | | [place] [address] | | | | | | [phone] | | | | | | | | +--------+ + + + + | 12/20/ | Office | Audiology | Elisabet Munson MS | | | 2019 | Visit | | [facility] [address] | | | | | [address] [place] | | | | | | [place] [address] | | | | | | [phone] | | | | | | | | +--------+ + + + + | 12/20/ | Office | Otolaryngology | Ulysses Genao MD | | | 2019 | Visit | | [address] | | | | | | [address] [place], | | | | | | [place] [address] | | | | | | [phone] | | | | | | | [...]
--- OUTSIDE RECORDS SUMMARY | ~2019-10-16 | XMS | Encounter Summary ---
Demographics + + + | Address | [address] | | | [place] [address] | + + + | Home Phone [...] Team Providers + +------+ + | Care Validation Engineer Name | Role | Phone | + +------+ + | Petrona Thapa | PCP | | | MD | | | + +------+ + Reason for Visit + + + | Reason | Comments | + + + | TCM - Hosp FU | | + + + Encounter Details +--------+ + + + + | Date | Type | Department | Care Team | Description | +--------+ + + + + | 03/17/ | Telephone | [facility] | Alanis, | TCM - Hosp FU | | 2017 | | MEDICINE [address] [place] [address] | MD Petrona | | | | | [facility] | [address] [place] [address] | | | | | [place] [address] | [place] [address] | | | | | [phone] | [phone] | | | | | | | [...] | | | | | | [address] [facility] | | | | | | [place] [address] | | | | | | [phone] | | | | | | | | +--------+ + + + + | 12/20/ | Office | Audiology | Elisabet Munson MS | | | 2019 | Visit | | [facility] [address] | | | | [address] [place] | | | | | | [place], [place] [address] | | | | | | [phone] | | | | | | | | +--------+ + + + + | 12/20/ | Office | Otolaryngology | Ulysses Genao MD | | | 2019 | Visit | | [address] | | | | | | [address] [place], | | | | | | [place] [address] | | | | | | [phone] | | | | | | | | +--------+ + + + + documented as of this encounter Visit Diagnoses Not on filedocumented in this encounter"
--- OUTSIDE RECORDS SUMMARY | ~2019-10-16 | XMS | Encounter Summary ---
Demographics + + + | Address | [address] | | | [place] [address] | + + + | Home Phone [...] Team Providers + +------+ + | Care Compressor Operator Portable Name | Role | Phone | + [...] + + | 05/28/ | Office | [facility] | Delfina Molina, | LBP (Low Back Pain); | | 2006 | Visit | Pain Center at | ANP | Bilateral Knee | | | | [facility] | | Pain; Arthroplasty | | [...] Migraine Headache; | | | | Floor [place], [place] | | Herniated Lumbar | | | | [address] | | Intervertebral Disc | | | | [phone] | | L4-5; Fibromyalgia | | | [...] Belinda Meehan is a 47 y.o. female [facility] Pain Center Return [...] diagnostics and lab results. 6. [facility]tinue with [facility] knee Post arthroplasty physical rehabiliation. 7. Schedule follow up in one month or sooner if needed - The pateint was asked to call the clinic with any concerns or questions. DELFINA MOLINA [facility] Mail code CH 4P [facility] [address] [place] [address] asha Nolasco - 05/28/2007 10:01 AM [...] of 103.2 she was seen here at [facility] today the temp is [...]
--- OUTSIDE RECORDS SUMMARY | ~2019-10-16 | XMS | Encounter Summary ---
Demographics + + + | Address | [address] | | | [place] [address] | + + + | Home Phone [...] Providers + +------+ + | Care Family Resource Management Specialist Name | Role | Phone | [...] | | [facility] | [place], [place] | | | | | [address] | [address] | | | | | [address] | [phone] | | | | | Physician's | | | | | | Pavilion, 1st floor | | | | | | [place], [place] | | | | | | [address] | | | | | | [phone] | | | +--------+--------+ + + + [...]
--- OUTSIDE RECORDS SUMMARY | ~2019-10-16 | XMS | Encounter Summary ---
Demographics + + + | Address | [address] | | | [place] [address] | + + + | Home Phone [...] Providers + +------+ + | Care Certified Prosthetist Vice President Name | Role | Phone | + +------+ + | Petrona Thapa | PCP | | | MD | | | + +------+ + Reason for Visit +--------+ + | Reason | Comments | +--------+ + | Other | bowel issues | +--------+ + Encounter Details +--------+ + + + + | Date | Type | Department | Care Team | Description | +--------+ + + + + | 03/19/ | Telephone | [facility] | Alanis, | Other (bowel issues) | | 2017 | | MEDICINE [address] [place] [address] | MD Petrona | | | | | [facility] | [address] [place] [address] | | | | | [place] [address] | [place] [address] | | | | | [phone] | [phone] | | | | | | | [...] | | | | | [place] [address] | | | | | | [phone] | | | | | | | | +--------+ + + + + | 12/20/ | Office | Audiology | Dariokeyla CeasarMS rafa | | | 2019 | Visit | | [facility] [address] | | | [address] [place] | | | | | | [place], [place] [address] | | | | | | [phone] | | | | | | | | +--------+ + + + + | 12/20/ | Office | Otolaryngology | Ulysses Genao MD | | | 2019 | Visit | | [address] | | | | | | [address] [place], | | | | | | [place] [address] | | | | | | [phone] | | | | | | | | +--------+ + + + + documented as of this encounter Visit Diagnoses Not on filedocumented in this encounter"
--- OUTSIDE RECORDS SUMMARY | ~2019-10-16 | XMS | Encounter Summary ---
Demographics + + + | Address | [address] | | | [place] [address] | + + + | Home Phone [...] Providers + +------+ + | Care Fire Protection Fabricator Name | Role | Phone | [...] + | 04/26/ | Refill | [facility] | Alanis, | Medication Refill | | 2017 | | MEDICINE [address] [place] [address] | MD Petrona | | | | | [facility] | [address] [place] [address] | | | | | [place] [address] | [place] [address] | | | | | [phone] | [phone] | | | | | | | [...] | | | | | [place] [address] | | | | | | [phone] | | | | | | | | +--------+ + + + + | 12/20/ | Office | Audiology | DarioElisabet ramires MS | | | 2019 | Visit | | [facility] [address] | | [address] [place] | | | | | | [place], [place] [address] | | | | | | [phone] | | | | | | | | +--------+ + + + + | 12/20/ | Office | Otolaryngology | Ulysses Genao MD | | | 2019 | Visit | | [address] | | | | | | [address] [place], | | | | | | [place] [address] | | | | | | [phone] | | | | | | | | +--------+ + + + + documented as of this encounter Visit Diagnoses Not on filedocumented in this encounter"
--- OUTSIDE RECORDS SUMMARY | ~2019-10-16 | XMS | Encounter Summary ---
Demographics + + + | Address | [address] | | | [place] [address] | + + + | Home Phone [...] Providers + +------+ + | Care Mail Carrier Name | Role | Phone | [...] Refill Request | | 2008 | | [place] [address] | [address] | (Sucralfate) | | | | Bethanie Mailcode: CH4S | [facility] | | | | | [facility] | [place], [place] | | | | | and [place], | [address] | | | | | [facility] | [phone] | | | | | Floor [place], [place] | | | | | | [address] | | | | | | [phone] | | | +--------+--------+ + + + [...]
--- OUTSIDE RECORDS SUMMARY | ~2019-10-16 | XMS | Encounter Summary ---
Demographics + + + | Address | [address] | | | [place] [address] | + + + | Home Phone [...] Providers + +------+ + | Care Shipping Services Sales Representative Name | Role | Phone | + +------+ + | Petrona Thapa | PCP | | | MD | | | + +------+ + Reason for Visit + + + | Reason | Comments | + + + | Care Coordination | | + + + Encounter Details +--------+ + + + + | Date | Type | Department | Care Team | Description | +--------+ + + + + | 04/06/ | Telephone | [facility] | Alanis, | Care Coordination | | 2017 | | MEDICINE [address] [place] [address] | MD Petrona | | | | | [facility] | [address] [place] [address] | | | | | [place] [address] | [place] [address] | | | | | [phone] | [phone] | | | | | | | [...] | | | | | [place] [address] | | | | | | [phone] | | | | | | | | +--------+ + + + + | 12/20/ | Office | Audiology | Dariokeyla MS Elisabet | | | 2019 | Visit | | [facility] [address] | | [address] [place] | | | | | | [place] [address] | | | | | | [phone] | | | | | | | | +--------+ + + + + | 12/20/ | Office | Otolaryngology | Ulysses Genao MD | | | 2019 | Visit | | [address] | | | | | | [address] [place], | | | | | | [place] [address] | | | | | | [phone] | | | | | | | | +--------+ + + + + documented as of this encounter Visit Diagnoses Not on filedocumented in this encounter"
--- OUTSIDE RECORDS SUMMARY | ~2019-10-16 | XMS | Encounter Summary ---
Demographics + + + | Address | [address] | | | [place] [address] | + + + | Home Phone [...] Team Providers + +------+ + | Care Retaining Room Cutter Name | Role | Phone | [...] + | 02/17/ | Refill | [facility] | Alanis, | Medication Refill | | 2018 | | MEDICINE [address] [place] [address] | MD Petrona | | | | | [facility] | [address] [place] [address] | | | | | [place] [address] | [place] [address] | | | | | [phone] | [phone] | | | | | | | [...] | | | | | [place] [address] | | | | | | [phone] | | | | | | | | +--------+ + + + + | 12/20/ | Office | Audiology | Elisabet MunsonMS | | | 2019 | Visit | | [facility] [address] | | | | [address] [place] | | | | | | [place] [address] | | | | | | [phone] | | | | | | | | +--------+ + + + + | 12/20/ | Office | Otolaryngology | Ulysses Genao MD | | | 2019 | Visit | | [address] | | | | | | [address] [place], | | | | | | [place] [address] | | | | | | [phone] | | | | | | | | +--------+ + + + + documented as of this encounter Visit Diagnoses + + | Diagnosis | + + | Chest pain, unspecified type | + + documented in this encounter"
--- OUTSIDE RECORDS SUMMARY | ~2019-10-16 | XMS | Encounter Summary ---
Demographics + + + | Address | [address] | | | [place] [address] | + + + | Home Phone [...] Providers + +------+ + | Care Maintenance Planner Name | Role | Phone | [...] + + | 08/19/ | Telephone | [facility] | Alanis, | Cold-like Symptoms | | 2018 | | MEDICINE [address] [place] [address] | MD Petrona | | | | | [facility] | [address] [place] [address] | | | | | [place] [address] | [place] [address] | | | | | [phone] | [phone] | | | | | | | [...] | | | | | [place] [address] | | | | | | [phone] | | | | | | | | +--------+ + + + + | 12/20/ | Office | Audiology | Elisabet Munson MS | | | 2019 | Visit | | [facility] [address] | | | | | [address] [place] | | | | | | [place] [address] | | | | | | [phone] | | | | | | | | +--------+ + + + + | 12/20/ | Office | Otolaryngology | Ulysses Genao MD | | | 2019 | Visit | | [address] | | | | | | [address] [place], | | | | | | [place] [address] | | | | | | [phone] | | | | | | | | +--------+ + + + + documented as of this encounter Visit Diagnoses Not on filedocumented in this encounter"
--- OUTSIDE RECORDS SUMMARY | ~2019-10-16 | XMS | Encounter Summary ---
Demographics + + + | Address | [address] | | | [place] [address] | + + + | Home Phone [...] Team Providers + +------+ + | Care Speaking Unit Assembler Name | Role | Phone | [...] + + | 04/08/ | Telephone | [facility] | Alanis, | Headache | | 2017 | | MEDICINE [address] [place] [address] | MD Petrona | | | | | [facility] | [address] [facility] | | | | | [place] [address] | [place] [address] | | | | | [phone] | [phone] | | | | | | | [...] | | | | | [place] [address] | | | | | | [phone] | | | | | | | | +--------+ + + + + | 12/20/ | Office | Audiology | Elisabet Munson MS | | 2019 | Visit | | [facility] [address] | | | | | [address] | | | | | | [place] [address] | | | | | | [phone] | | | | | | | | +--------+ + + + + | 12/20/ | Office | Otolaryngology | Ulysses Genao MD | | | 2020 | Visit | | [address] | | | | | | [address] [place], | | | | | | [place] [id number] | | | | | | [phone] | | | | | | | | +--------+ + + + + documented as of this encounter Visit Diagnoses Not on filedocumented in this encounter"
--- OUTSIDE RECORDS SUMMARY | ~2019-10-16 | XMS | Encounter Summary ---
Demographics + + + | Address | [address] | | | [place] [address] | + + + | Home Phone [...] Team Providers + +------+ + | Care Estate Manager Name | Role | Phone | [...] | | | | | | [place], | | | | | | | [place] | | | | | | | [address] | | | | | | | Phone: | | | | | | | [phone] | | | | | | | Fax: | | | | | | | [phone] | +--------+--------+ + + + + Encounter Details +--------+---------+ + + + | Date | Type | Department | Care Team | Description | +--------+---------+ + + + | 11/10/ | Office | Digestive Health | Chris Padgett, | Status Post | | 2007 | Visit | [place] [address] | [address] | Bariatric Surgery; | | | | Ave Mailcode: CH4S | [address] | Abdominal Pain, | | | | Center [facility] | [place], [place] | Other Specified Site | | | | and Healing, | [address] | | | | | Building | [phone] | | | | | Floor [place], [place] | | | | | | [address] | | | | | | [phone] | | | +--------+---------+ + + + [...]
--- OUTSIDE RECORDS SUMMARY | ~2019-10-16 | XMS | Encounter Summary ---
Demographics + + + | Address | [address] | | | [place] [address] | + + + | Home Phone [...] Team Providers + +------+ + | Care Shelving Supervisor Name | Role | Phone | + +------+ + | Sulaiman Carrera MD | PCP | | + +------+ + Encounter Details +--------+ + + + + | Date | Type | Department | Care Team | Description | +--------+ + + + + | 10/05/ | Ancillary | Registration [address] | Ramon Ibarra, | | | 2006 | Registratio | [facility] [address] | [address] [facility] | | | | [address] | [address] Mailcode: [id number] | [place], [place] | | | | | [place], [place] | [address] | | | | | [address] | [phone] | | | | | [phone] | | | +--------+ + + + [...]
--- OUTSIDE RECORDS SUMMARY | ~2019-10-16 | XMS | Encounter Summary ---
Demographics + + + | Address | [address] | | | [place] [address] | + + + | Home Phone [...] | | | | [address] [facility] | [place], [place] | | | | | [address] | [address] | | | | | [place], [place] | [phone] | | | | | [address] | | | | | | [phone] | | | +--------+ + + + [...] + + | Performing | Address | City[facility] | Phone Number | | Organization | | | | + +---------+ + + | [facility] DEPARTMENT OF | | | | [...]
--- OUTSIDE RECORDS SUMMARY | ~2019-10-16 | XMS | Encounter Summary ---
Demographics + + + | Address | [address] | | | [place] [address] | + + + | Home Phone [...] Providers + +------+ + | Care Vp Client Services Name | Role | Phone | [...] of this encounter Progress Notes Interface, Manager Of Compensation In - 01/12/2005 6:32 AM PDTClinic Date: [...] improves, and the leg discomfort is actually safety representative of restless legs. I have given [...] 4 months. Caitlin Rivera M.S., F.N.P. / [id number] / [id number] / [id number] / [id number] cc: Pedrito Gutierrez M.D. [address] [place], [place] [id number] signed by Interface, Manager Of Compensation In at 01/12/2005 6:3 2 AM PDTdocumented in this encounter Plan of Treatment Not on filedocumented as of this encounter Visit Diagnoses Not on filedocumented in this encounter"
--- OUTSIDE RECORDS SUMMARY | ~2019-10-16 | XMS | Encounter Summary ---
[...] Team Providers + +------+ + | Care Radio Sales Account Executive Name | Role | Phone [...] + + | 01/04/ | Telephone | [facility] | Alanis, | Skin Irritation | | 2017 | | MEDICINE [address] [place] [address] | MD Petrona | | | | | [facility] | [address] [place] [address] | | | | | [place] [address] | [place] [address] | | | | | [phone] | [phone] | | | | | | | [...] | | | | | [place] [address] | | | | | | [phone] | | | | | | | | +--------+ + + + + | 12/20/ | Office | Audiology | Elisabet Munson MS | | | 2019 | Visit | | [facility] [address] [place] | | | | | | [place] [address] | | | | | | [phone] | | | | | | | | +--------+ + + + + | 12/20/ | Office | Otolaryngology | Ulysses Genao MD | | | 2019 | Visit | | [address] | | | | | | [address] [place], | | | | | | [place] [address] | | | | | | [phone] | | | | | | | | +--------+ + + + + documented as of this encounter Visit Diagnoses + + | Diagnosis | + + | Tinea cruris - Primary Dermatophytosis of groin and perianal area | + + documented in this encounter"
--- OUTSIDE RECORDS SUMMARY | ~2019-10-16 | XMS | Encounter Summary ---
Demographics + + + | Address | [address] | | | [place] [address] | + + + | Home Phone [...] Team Providers + +------+ + | Care Cutter Brake Lining Name | Role | Phone | + [...] | | | [facility] | [place], [place] | | | | | [address] | [address] | | | | | [address] | [phone] | | | | | [facility] | | | | | | Physician's | | | | | | Pavilion [place], | | | | | | [place] [address] | | | | | | [phone] | | | +--------+ + + + [...]
--- OUTSIDE RECORDS SUMMARY | ~2019-10-16 | XMS | Encounter Summary ---
Demographics + + + | Address | [address] | | | [place] [address] | + + + | Home Phone [...] Team Providers + +------+ + | Care Blankmaker Name | Role | Phone | + [...] | Discussion | | 2007 | | [facility] & | MD | | | | | Healing Radha3 Sara Horta | | | | | | Bethanie Mailcode: CH8C | | | | | | [facility] | | | | | | and Healing, | | | | | | Building | | | | | | Floor [place], [place] | | | | | | [address] | | | | | | [phone] | | | +--------+ + + + [...]
--- OUTSIDE RECORDS SUMMARY | ~2019-10-16 | XMS | Encounter Summary ---
Demographics + + + | Address | [address] | | | [place] [address] | + + + | Home Phone [...] + +------+ + | Care Real Estate Legal Assistant Name | Role | Phone | [...] | | Procedures | [place], | [address] Phone: | | | | | OFFICE VISIT | [place] | [phone] | | | | | REGULAR | [address] | Fax: | | | | | | Phone: | [phone] | | | | | | [phone] | | | | | | | Fax: | | | | | | | [phone] | | +--------+--------+ + + + + Encounter Details +--------+---------+ + + + | Date | Type | Department | Care Team | Description | +--------+---------+ + + + | 10/18/ | Office | [facility] | Elisabet Munson, | Encounter for | | 2014 | Visit | AUDIOLOGY AND | [facility] [address] | hearing evaluation | | | | HEARING AID SERVICES | [facility] [address] [facility] | (Primary Dx) | | | | [address] | [place] [address] | | | | | [facility] [address] [facility] | [phone] | | | | | [place] [address] | | | | | | [phone] | | | +--------+---------+ + + + [...] | | | | | | [address] [facility] [address] | | | | | | [place] [address] | | | | | | [phone] | | | | | | | | +--------+ + + + + | 12/20/ | Office | Audiology | Elisabet MunsonMS | | | 2019 | Visit | | [facility] [address] | | | | | | [address] [place] | | | | | | [place] [address] | | | | | | [phone] | | | | | | | | +--------+ + + + + | 12/20/ | Office | Otolaryngology | Ulysses Genao MD | | | 2019 | Visit | | [address] | | | | | | [address] [place], | | | | | | [place] [address] | | | | | | [phone] | | | | | | | [...]
--- OUTSIDE RECORDS SUMMARY | ~2019-10-16 | XMS | Encounter Summary ---
Demographics + + + | Address | [address] | | | [place] [address] | + + + | Home Phone [...] Team Providers + +------+ + | Care Lehr Operator Name | Role | Phone | [...] as of this encounter Progress Notes Interface, Belt Conveyor Drier In - 02/15/2006 2:03 AM PDT [id number] GEOVANNI SKELTON Molly [id number] Clinic Date: 10/23/2005 Clinic: Endocrinology Subjective: Belinda [...] her back on October 06, 2005, in [place], [place]. This study showed a moderate central disk bulge at L4-L5 consistent with a herniated nucleus pulposus. There has been some discussion by her physicians in [place] about the possibility of giving her epidural [...] most recent laboratory studies were performed in [place] on July 02, 2005. At that time, [...] months. Beto Meeks M.D. PD / HS [id number] / [id number] / [id number] / cc: Joanna Arshad M.D. [address] [place] [address] Electronically signed by Beto Meeks 02-14-2006 02:02:42 AM documented i n this encounter Plan of Treatment Not on filedocumented as of this encounter Visit Diagnoses Not on filedocumented in this encounter"
--- OUTSIDE RECORDS SUMMARY | ~2019-10-16 | XMS | Encounter Summary ---
Demographics + + + | Address | [address] | | | [place] [address] | + + + | Home Phone [...] Team Providers + +------+ + | Care Auditor Supervisor Name | Role | Phone | [...] Services | Therapy | Acute pain | [place] | [facility] | | | Required | | of right | Eliud, | PHYSICAL | | | | | shoulder | MD [address] | THERAPY 14[address] | | | | | Tear of | [address] | [place] | | | | | right | [place], | [place], [place] | | | | | supraspinatu | [place] | [address] | | | | | s tendon, | [address] | Phone: | | | | | initial | Phone: | [phone] | | | | | encounter | [phone] | Fax: | | | | | | Fax: | [phone] | | | | | | [phone] | | +--------+ + + + + [...] | | right | [address] | [address] Phone: | | | | | supraspinatu | [place], | [phone] | | | | | s tendon, | [place] | Fax: | | | | | initial | [address] | [phone] | | | | | encounter | Phone: | | | | | | | [phone] | | | | | | | Fax: | | | | | | | [phone] | | +--------+ + + + + + Encounter Details +--------+---------+ + + + | Date | Type | Department | Care Team | Description | +--------+---------+ + + + | 02/23/ | Office | [facility] | Lc Vail | Acute pain of right | | 2018 | Visit | ORTHOPEDIC SURGERY | MD Eliud [address] | shoulder; Tear of | | | | [address] [facility] | [facility] | right supraspinatus | | | | [place] | [place] [address] | tendon, initial | | | | [address] | [phone] | encounter | | | | [phone] | | | +--------+---------+ + + + [...] the shoulder. Try to hold the stretch ive4ukvdpnl. 3. Work up to qhguc1uyms of this stretch,3times a day. Work up [...] ask your healthcare provider. Date Last Reviewed: 07/16/201719995159-6949 [employer]. [address] [place] [address], [place] [address]. All righ ts reserved. This information is not intended as a substitute for professional medical care. Always follow your healthcare professional's instructions. documented in this encounter Progress Notes Lc Vail MD - 02/23/2018 1:30 PM PDTFormatting of this note might be different fro m the original. [facility] HISTORY AND PHYSICAL EXAMINATION [...] worse as time goes on. She quit [employer] in 2013. Past Medical History: Past [...] Location: [facility] MEDICAL PROCEDURE UNIT Allergies: Allergies Allergen Reactions Codeine Sulfate Nausea Only Levofloxacin Hives, Itching and Rash Amitriptyline Hcl Other (See Comments) Confused and questionable for seizures Lmqlpeelhg-Mpxv-Igfgppws Hives and Rash Cephalexin Hives Ciprofloxacin Hives [...] 1. Acute pain of right shoulder * [facility] Physical Therapy - AMB Referral triamcinolone acetonide (KENALOG-40) 40 mg/mL injection 40 mg 2. Tear of right supraspinatus tendon, initial encounter * [facility] Physical Therapy - AMB Refe rral [...] injection. She is very symptomatic at [facility] and states that she has a [...] made to ensure accuracy; however, inadvertent computerized van owner operator errors may be pre sent. I appreciate the opportunity to help with the management of this patient. Lc Vail MD [facility] umented in this encounter Plan of Treatment +--------+ [...] | | | | | | [place] [address] | | | | | | [phone] | | | | | | | | +--------+ + + + + | 12/20/ | Office | Audiology | Elisabet Munson MS | | | 2019 | Visit | | [facility] [address] | | | | | | [address] [place] | | | | | | [place] [address] | | | | | | [phone] | | | | | | | | +--------+ + + + + | 12/20/ | Office | Otolaryngology | Ulysses Genao MD | | | 2019 | Visit | | [address] | | | | | | [address] [place], | | | | | | [place] [address] | | | | | | [phone] | | | | | | | [...]
--- OUTSIDE RECORDS SUMMARY | ~2019-10-16 | XMS | Encounter Summary ---
Demographics + + + | Address | [address] | | | [place] [address] | + + + | Home Phone [...] Providers + +------+ + | Care Chief Operator Hydroformer Name | Role | Phone | + [...] Pavilion | | | | | | [place], [place] | | | | | | [address] | | | | | | [phone] | | | +--------+ + + + [...]
--- OUTSIDE RECORDS SUMMARY | ~2019-10-16 | XMS | Encounter Summary ---
Demographics + + + | Address | [address] | | | [place] [address] | + + + | Home Phone [...] Providers + +------+ + | Care Property Caretaker Name | Role | Phone | [...] Progress Notes Interface, Food Packer In - 02/17/2006 3:04 AM [facility] [place] [address] [place], [place] [address] or October 02, 2001 Pedrito Gutierrez M.D. [facility] [address] [place] [address] RE: BELINDA GALARZA MR #: [id number] Dear Dr. 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 Sincerely, Issac Meeks M.D. radiology scheduler, Division of Endocrinology, Diabetes, and Clinical Communications Scientist, Metabolic Disorders Clinic Ph#: [phone] [facility] / [id number] / [id number] / [id number] / C: 10/13/2001 praful [id number] signed by Interface, Food Packer In at 02/17/2006 3:04 AM [facility] umented in this encounter Plan of Treatment Not on filedocumented as of this encounter Visit Diagnoses Not on filedocumented in this encounter"
--- OUTSIDE RECORDS SUMMARY | ~2019-10-16 | XMS | Encounter Summary ---
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 She is doing PT as this point. With some benefit. She is concerned because she now has some poppin mahesh dlocking symptoms and wants to know if there si something that service observer chief be done w ith a scope to [...] (ciprofloxacin) Tramadol Morphine IM ( only in [facility] [...] the MRI. Ramon Ibarra M.D. Sports Medicine [facility] Orthopaedics and Rehabilitation [address] [place], [place] [address] [phone] documented in this encoun ter Plan of [...] | | + +---------+ + + | [facility] DEPARTMENT OF | | [...]
--- OUTSIDE RECORDS SUMMARY | ~2019-10-16 | XMS | Encounter Summary ---
Demographics + + + | Address | [address] | | | [place] [address] | + + + | Home Phone [...] Team Providers + +------+ + | Care Writing Manager Name | Role | Phone | [...] Naeem Clementina | | | | | [facility] | [place], [place] | | | | | and Healing, | [address] | | | | | [place] [address], [facility] | [phone] | | | | | Floor [place], [place] | | | | | | [address] | | | | | | [phone] | | | +--------+ + + + [...]
--- OUTSIDE RECORDS SUMMARY | ~2019-10-16 | XMS | Encounter Summary ---
Demographics + + + | Address | [address] | | | [place] [address] | + + + | Home Phone [...] Team Providers + +------+ + | Care Microstrategy Bi Developer Name | Role | Phone | [...] Other (wondering | | 2008 | | [place] [address] | [address] | ablout colonoscopy) | | | | Ave Mailcode: CH4S | [facility] | | | | | [facility] | [place], [place] | | | | | and [place], | [address] | | | | | [facility] | [phone] | | | | | [place], [place] | | | | | | [address] | | | | | | [phone] | | | +--------+ + + + [...]
--- OUTSIDE RECORDS SUMMARY | ~2019-10-16 | XMS | Encounter Summary ---
Demographics + + + | Address | [address] | | | [place] [address] | + + + | Home Phone [...] Team Providers + +------+ + | Care Program Advocate Name | Role | Phone | [...] | | | | Clinical Nutrition | [place], [place] | | | | | [address] | [address] | | | | | Loop Mailcode: OPC5 | [phone] | | | | | Outpatient Clinic | | | | | | [facility] | | | | | | [place] [address] | | | | | | [phone] | | | +--------+ + + + [...] + + + | [facility] | [address] | [place] [address] | | | LABORATORY | | | [...] + + + | [facility] | [address] | [place] [address] | | | LABORATORY | | | [...] Blood Test performed by | | | [facility]. | | + + + + + + + + | Performing | Address | City/State/Zipcode | Phone Number | | Organization | | | | + + + + + | [facility] | [address] | [place] [address] | | | LABORATORY | | | | + + + + + documented in this encounter Visit Diagnoses Not on filedocumented in this encounter"
--- OUTSIDE RECORDS SUMMARY | ~2019-10-16 | XMS | Encounter Summary ---
Demographics + + + | Address | [address] | | | [place] [address] | + + + | Home Phone [...] of this encounter Progress Notes Interface, Software Architect In - 06/23/2006 2:36 AM PST [id number] GEOVANNI SKELTON [place] [id number] Clinic Date: 05/05/2006 Clinic: Endocrinology Subjective: Belinda [...] replacement. Beto Meeks M.D. PD / HS [id number] / [id number] / [id number] / cc: Pedrito Gutierrez M.D. [address] [place] [address] Joanna Arshad M.D. [facility] Electronically signed by Beto Meeks 06-20-2006 11:48:11 PM documented i n this encounter Plan of Treatment Not on filedocumented as of this encounter Visit Diagnoses Not on filedocumented in this encounter"
--- OUTSIDE RECORDS SUMMARY | ~2019-10-16 | XMS | Encounter Summary ---
Demographics + + + | Address | [address] | | | [place] [address] | + + + | Home Phone [...] Team Providers + +------+ + | Care Rawhide Bone Roller Name | Role | Phone | [...] + + | 10/11/ | Telephone | [facility] | Alanis, | LABS | | 2019 | | MEDICINE [address] [place] [address] | MD [place]rona | | | | | [facility] | [address] [place] [address] | | | | | [place] [address] | [place] [address] | | | | | [phone] | [phone] | | | | | | | [...] | | | | | [place] [address] | | | | | | [phone] | | | | | | | | +--------+ + + + + | 12/20/ | Office | Audiology | Elisabet Munson MS | | 2019 | Visit | | [facility] [address] | | | | | | [address] [place] | | | | | | [place] [address] | | | | | | [phone] | | | | | | | | +--------+ + + + + | 12/20/ | Office | Otolaryngology | Ulysses Genao MD | | | 2019 | Visit | | [address] [facility] | | | | | | [address] [place], | | | | | | [place] [address] | | | | | | [phone] | | | | | | | | +--------+ + + + + documented as of this encounter Visit Diagnoses + + | Diagnosis | + + | Osteoporosis, unspecified osteoporosis type, unspecified pathological fracture | | presence - Primary | + + documented in this encounter"
--- OUTSIDE RECORDS SUMMARY | ~2019-10-16 | XMS | Encounter Summary ---
Demographics + + + | Address | [address] | | | [place] [address] | + + + | Home Phone [...] Team Providers + +------+ + | Care Impregnator Name | Role | Phone | + [...] of this encounter Progress Notes Interface, High Frequency Mill Operator In - 12/07/2005 3:08 AM [facility] [place] [address] [place], [place] [address] or January 31, 2003 Pedrito Gutierrez M.D. [address] [place] [address] RE: BELINDA MEEHAN MR #: [id number] Dear Dr. Gutierrez: I had the pleasure [...] She had surgery 5 days ago in [place] on her right hand and wrist, for [...] time to help minimize her travel to [place]. In the meantime, please feel free to contact me if you have other questions, concerns, or suggestions regarding her condition. Sincerely, Issac Meeks M.D. hammer setter Division of Endocrinology, Diabetes, and Clinical Nutrition, Director of Metabolic Disorders Clinic MONIQUE / SHARIF [id number] / [id number] / [id number] / Tdocumented in this encounter Plan of Treatment Not on filedocumented as of this encounter Visit Diagnoses Not on filedocumented in this encounter"
--- OUTSIDE RECORDS SUMMARY | ~2019-10-16 | XMS | Encounter Summary ---
Demographics + + + | Address | [address] | | | [place] [address] | + + + | Home Phone [...] Team Providers + +------+ + | Care Circular Sawyer Stone Name | Role | Phone | + [...] + + | 08/14/ | Office | [facility] | Alanis, | Situational insomnia | | 2020 | Visit | MEDICINE [address] | MD Petrona | (Primary Dx); | | | | [facility] | [address] [place] [address] | Situational | | | | [place] [address] | [place] [address] | depression | | | | [phone] | [phone] | | | | | | | [...] Total Score 10 (08/15/19934) (Printable questionnaires in Scottish ) Interpretation of Total Score: 1-4 = [...] apnea Spondylosis with myelopathy, lumbar region Stroke ([facility]) Syncope Tremor Type II or [...] Procedure: COLONOSCOPY; Surgeon: Luther Brito MD; Location: [facility] MEDICAL PROCEDURE UNIT DILATION AND CURETTAGE OF UTERUS ELBOW SURGERY FINGER TRIGGER RELEASE 2002 FINGER TRIGGER RELEASE 2010 GASTRIC BYPASS SURGERY 2004 HYSTERECTOMY 05/14/1980 JOINT REPLACEMENT Bilateral 2006 2007 KNEE ARTHROSCOPY 2005 LAPAROSCOPY 01/27/2015 LAPAROTOMY 2008 ROTATOR CUFF REPAIR 2005 SPINE SURGERY TONSILLECTOMY 1964 UPPER GASTROINTESTINAL ENDOSCOPY N/A 12/18/2017 Procedure: EGD; Surgeon: Luther Brito MD; Location: [facility] MEDICAL PROCEDURE UNIT CURRENT MEDICATIONS Current [...] Allergen Reactions Ensure Diarrhea Food Diarrhea Lactose Zruhwsmhlp-Wlf-Fnba-Codeine Other (See Comments) Balance problems Codeine Sulfate Nausea Only Food Allergy Formula Diarrhea Ensure Levofloxacin Hives, Itching and Rash Butalbital Ropinirole Amitriptyline Hcl Other (See Comments) Confused and questionable for seizures Gypthfcboz-Lvzr-Oljdeuif Rash duplicate Jhtefoijmz-Gubg-Vhpdmnmd Hives and Rash Cephalexin Hives Ciprofloxacin Hives and Rash Clarithromycin Hives and Rash Clindamycin Hcl Hives and Rash Doxycycline Rash Duloxetine Other (See Comments) Migraines and nausea Ketorolac Hives Levofloxacin Hives and Rash Morphine Swelling Penicillins Hives and Rash Ropinirole Hcl Hives Sulfamethoxazole-Trimethoprim Hives and Rash Tramadol Hcl Nausea Only FOLLOW-UP No follow-ups on file. Notes: 1. Parts of this documentwere created using [employer] speech recognition software. As a resu lt, [...] | | | | | [place] [address] | | | | | | [phone] | | | | | | | | +--------+ + + + + | 12/20/ | Office | Audiology | Elisabet Munson MS | | | 2019 | Visit | | [facility] | | | | | | [place] [address] [address] | | | | | | [place] [address] | | | | | | [phone] | | | | | | | | +--------+ + + + + | 12/20/ | Office | Otolaryngology | Ulysses Genao MD | | | 2020 | Visit | | [address] [place] | | | | | | [address] [place], | | | | | | [place] [address] | | | | | | [phone] | | | | | | | [...] | | First dose on [facility] 10/15/17 at 1215 | | | [...]
--- OUTSIDE RECORDS SUMMARY | ~2019-10-16 | XMS | Encounter Summary ---
Demographics + + + | Address | [address] | | | [place] [address] | + + + | Home Phone [...] Team Providers + +------+ + | Care Vascular Technologist Sonographer Name | Role | Phone | + [...] | GASTROENTEROLOGY | [address] [place] | | | | | [address] | [address] [place], | | | | | [address] [place], [place] | [place] [address] | | | | | [address] | [phone] | | | | | [phone] | | | +--------+ + + + [...] | | | | | [place] [address] | | | | | | [phone] | | | | | | | | +--------+ + + + + | 12/20/ | Office | Audiology | Elisabet Munson MS | | | 2019 | Visit | | [facility] [address] | | | | | | [address] [place] | | | | | | [place] [address] | | | | | | [phone] | | | | | | | | +--------+ + + + + | 12/20/ | Office | Otolaryngology | Ulysses Genao MD | | | 2019 | Visit | | [address] | | | | | | [address] [place], | | | | | | [place] [address] | | | | | | [phone] | | | | | | | | +--------+ + + + + documented as of this encounter Visit Diagnoses Not on filedocumented in this encounter"
--- OUTSIDE RECORDS SUMMARY | ~2019-10-16 | XMS | Encounter Summary ---
Demographics + + + | Address | [address] | | | [place] [address] | + + + | Home Phone [...] Team Providers + +------+ + | Care Percher Name | Role | Phone | + [...] | | | | Sara Kovacs | [facility] | | | | | Mailcode: Center | [place] [address] | | | | | for Health and | [phone] | | | | | Healing, [address] | | | | | | [place], [place] | | | | | | [address] | | | | | | [phone] | | | +--------+ + + + [...]
--- OUTSIDE RECORDS SUMMARY | ~2019-10-16 | XMS | Encounter Summary ---
Demographics + + + | Address | [address] | | | [place] [address] | + + + | Home Phone [...] | + + +---------+ + | Marco Antonoi Wells | ECON | Unknown | | + + +---------+ + Care Team Providers + +------+ + | Care Supervisor Files Name | Role | Phone | + [...] | phalanx of | [address] | [address] | | | | | left great | [place], | Phone: | | | | | toe, initial | [place] | [phone] | | | | | encounter | [address] | Fax: | | | | | | Phone: | [phone] | | | | | | [phone] | | | | | | | Fax: | | | | | | | [phone] | | +--------+ + + + + + Encounter Details +--------+ + + + + | Date | Type | Department | Care Team | Description | +--------+ + + + + | 08/26/ | Orders Only | [facility] | Alanis, | Closed nondisplaced | | 2018 | | MEDICINE [address] | MD Petrona | fracture of proximal | | | | [address] [place] | [address] [place] | phalanx of left | | | | [place] [address] | [place] [address] | great toe, initial | | | | [phone] | [phone] | encounter (Primary | | | | [...] | | | | | [place] [address] | | | | | | [phone] | | | | | | | | +--------+ + + + + | 12/20/ | Office | Audiology | Elisabet Munson MS | | 2019 | Visit | | [facility] [address] | | | | | [address] [place] [address] [place] | | | | | | [place] [address] | | | | | | [phone] | | | | | | | | +--------+ + + + + | 12/20/ | Office | Otolaryngology | Ulysses Genao MD | | | 2019 | Visit | | [address] [facility] | | | | | | [address] [place], | | | | | | [place] [address] | | | | | | [phone] | | | | | | | [...]
--- OUTSIDE RECORDS SUMMARY | ~2019-10-16 | XMS | Encounter Summary ---
Demographics + + + | Address | [address] | | | [place] [address] | + + + | Home Phone [...] Providers + +------+ + | Care Counter Supply Worker Name | Role | Phone | [...] | Osteopenia | | 2006 | | [place] [address] | [address] [facility] | | | | | [place] Mailcode: CH4S | Naeem Mcrae | | | | | [facility] | [place], [place] | | | | | and Healing, | [address] | | | | | [facility] | [phone] | | | | | Floor [place], [place] | | | | | | [address] | | | | | | [phone] | | | +--------+ + + + [...]
--- OUTSIDE RECORDS SUMMARY | ~2019-10-16 | XMS | Encounter Summary ---
Demographics + + + | Address | [address] | | | [place] [address] | + + + | Home Phone [...] Team Providers + +------+ + | Care Hedis Nurse Name | Role | Phone | [...] + + | 08/24/ | Telephone | [facility] | Alanis, | Toe Pain | | 2019 | | MEDICINE [address] [place] [address] | MD Petrona | | | | | [facility] | [address] [place] [address] | | | | | [place] [address] | [place] [address] | | | | | [phone] | [phone] | | | | | | | [...] | | | | | [place] [address] | | | | | | [phone] | | | | | | | | +--------+ + + + + | 12/20/ | Office | Audiology | Elisabet Munson MS | | 2019 | Visit | | [facility] | | | | | | [address] [place] | | | | | | [place] [address] | | | | | | [phone] | | | | | | | | +--------+ + + + + | 12/20/ | Office | Otolaryngology | Ulysses Genao MD | | | 2019 | Visit | | [address] | | | | | | [address] [place], | | | | | | [place] [address] | | | | | | [phone] | | | | | | | [...]
--- OUTSIDE RECORDS SUMMARY | ~2019-10-16 | XMS | Encounter Summary ---
Demographics + + + | Address | [address] | | | [place] [address] | + + + | Home Phone [...] Providers + +------+ + | Care Safety Sitter Name | Role | Phone | + [...] as of this encounter Progress Notes Interface, Research Subject In - 01/12/2005 6:32 AM PDT Referred [...] she was going to go to the [employer] food store and try to find another [...] two months. Svetlana Maki R.D. SR/x35 P [id number] signed by Interface, Research Subject In at 01/12/2005 6:32 AM [facility] this [facility] Plan of Treatment Not on filedocumented as of this encounter Visit Diagnoses Not on filedocumented in this encounter"
--- OUTSIDE RECORDS SUMMARY | ~2019-10-16 | XMS | Encounter Summary ---
Demographics + + + | Address | [address] | | | [place] [address] | + + + | Home Phone [...] Providers + +------+ + | Care Circuit Clerk Name | Role | Phone | [...] [address] | | | | | | [place], [place] | | | | | | [address] | | | +--------+ + + + [...]
--- OUTSIDE RECORDS SUMMARY | ~2019-10-16 | XMS | Encounter Summary ---
Demographics + + + | Address | [address] | | | [place] [address] | + + + | Home Phone [...] Team Providers + +------+ + | Care Bakery Decorator Name | Role | Phone | + [...] | +--------+ + + + + | 03// | Telephone | Orthopaedics | Angel Morales | Knee pain | | 2006 | | Faculty at [employer] | MD Darrion,PhD [address] | | | | | for Health and | [address] | | | | | Healing [address] | [place], [place] | | | | | Ave Mailcode: | [address] | | | | | [facility] | [phone] | | | | | Health and Healing, | | | | | | [facility] | | | | | | [place], [place] | | | | | | [address] | | | | | | [phone] | | | +--------+ + + + [...]
--- OUTSIDE RECORDS SUMMARY | ~2019-10-16 | XMS | Encounter Summary ---
Demographics + + + | Address | [address] | | | [place] [address] | + + + | Home Phone [...] Team Providers + +------+ + | Care Lab Analyst Name | Role | Phone | [...] | | | | Clinical Nutrition | [place], [place] | | | | | [address] | [address] | | | | | Loop Mailcode: OPC5 | [phone] | | | | | Outpatient Clinic | | | | | | [facility] | | | | | | [place] [address] | | | | | | [phone] | | | +--------+ + + + [...] + + + | [facility] | [address] | [place] [address] | | | LABORATORY | | | [...] | uIU/ml | | | | | [facility] | | | | | | Laboratories. | | | | + + + + + + + + | Specimen | + + | | + + + + + + + | Performing | Address | City/State/Zipcode | Phone Number | | Organization | | | | + + + + + | [facility] | [address] | [place] [address] | | | LABORATORY | | | [...] | + + + + + | [facility] | [address] | [place] [address] | | | LABORATORY | | | [...] | | | SERUM | performed by [place] | | | | | | [facility] | | | | | | Laboratories. | | | | + + + + + + + + | Specimen | + + | | + + + + + + + | Performing | Address | City/State/Zipcode | Phone Number | | Organization | | | | + + + + + | [facility] | [address] | [place] [address] | | | LABORATORY | | | [...] + + | [facility] | [address] | [place] [address] | | | PATHOLOGY | [address] | | | + + + + + | [facility] | [address] | [place] [address] | | | PATHOLOGY | [address] | | | + + + + + documented in this encounter Visit Diagnoses Not on filedocumented in this encounter"
--- OUTSIDE RECORDS SUMMARY | ~2019-10-16 | XMS | Encounter Summary ---
Demographics + + + | Address | [address] | | | [place] [address] | + + + | Home Phone [...] Team Providers + +------+ + | Care Nicking Machine Operator Name | Role | Phone [...] | at [place] [place] | [facility] | | | | | [address] | [place] [address] | | | | | [address] | | | | | | [place], 2nd floor | | | | | | [place], [place] | | | | | | [address] | | | | | | [phone] | | | +--------+ + + + [...]
--- OUTSIDE RECORDS SUMMARY | ~2019-10-16 | XMS | Encounter Summary ---
Demographics + + + | Address | [address] | | | [place] [address] | + + + | Home Phone [...] Team Providers + +------+ + | Care Straightener Gun Parts Name | Role | Phone | [...] | | Ave Mailcode: CH4S | [facility] | | | | | [facility] | [place], [place] | | | | | and Healing, | [address] | | | | | [facility] | [phone] | | | | | Floor [place], [place] | | | | | | [address] | | | | | | [phone] | | | +--------+ + + + [...]
--- OUTSIDE RECORDS SUMMARY | ~2019-10-16 | XMS | Encounter Summary ---
Demographics + + + | Address | [address] | | | [place] [address] | + + + | Home Phone [...] Providers + +------+ + | Care Assistant Center Manager Name | Role | Phone | [...] | | | [facility] | [place], [place] | | | | | [address] | [address] | | | | | [address] | [phone] | | | | | Physician's | | | | | | Pavilion, 1st floor | | | | | | [place], [place] | | | | | | [address] | | | | | | [phone] | | | +--------+ + + + [...]
--- OUTSIDE RECORDS SUMMARY | ~2019-10-16 | XMS | Encounter Summary ---
Demographics + + + | Address | [address] | | | [place] [address] | + + + | Home Phone [...] Providers + +------+ + | Care Terminal Gauger Name | Role | Phone | + [...] [address] | | | | | [place], [place] | [place], [place] | | | | | [address] | [address] | | | | | [phone] | [phone] | | | | | | | [...]
--- OUTSIDE RECORDS SUMMARY | ~2019-10-16 | XMS | Encounter Summary ---
Demographics + + + | Address | [address] | | | [place] [address] | + + + | Home Phone [...] Team Providers + +------+ + | Care Ax Survey Worker Name | Role | Phone | [...] + + | 09/04/ | Telephone | [facility] | Alanis, | Appointment Question | 2019 | | MEDICINE [address] [place] [address] | MD Petrona | | | | | [facility] | [address] [place] [address] | | | | | [place] [address] | [place] [address] | | | | | [phone] | [phone] | | | | | | | [...] | | | | | [place] [address] | | | | | | [phone] | | | | | | | | +--------+ + + + + | 12/20/ | Office | Audiology | Elisabet Munson MS | | | 2019 | Visit | | [facility] [address] | | | | | | [address] [place] | | | | | | [place] [address] | | | | | | [phone] | | | | | | | | +--------+ + + + + | 12/20/ | Office | Otolaryngology | Ulysses Genao MD | | | 2019 | Visit | | [address] | | | | | | [address] [place], | | | | | | [place] [address] | | | | | | [phone] | | | | | | | | +--------+ + + + + documented as of this encounter Visit Diagnoses Not on filedocumented in this encounter"
--- OUTSIDE RECORDS SUMMARY | ~2019-10-16 | XMS | Encounter Summary ---
Demographics + + + | Address | [address] | | | [place] [address] | + + + | Home Phone [...] Providers + +------+ + | Care Medical Services Manager Name | Role | Phone [...] + | 12/13/ | Telephone | [facility] | Alanis, | Follow-up | | 2019 | | MEDICINE [address] [place] [address] | MD Petrona | | | | | [facility] | [address] [place] [address] | | | | | [place] [address] | [place] [address] | | | | | [phone] | [phone] | | | | | | | [...] | | | | | [place] [address] | | | | | | [phone] | | | | | | | | +--------+ + + + + | 12/20/ | Office | Audiology | Elisabet Munson MS | | | 2019 | Visit | | [facility] [address] | | | | | | [address] [place] | | | | | | [place] [address] | | | | | | [phone] | | | | | | | | +--------+ + + + + | 12/20/ | Office | Otolaryngology | Ulysses Genao MD | | | 2020 | Visit | | [address] | | | | | | [address] [place], | | | | | | [place] [address] | | | | | | [phone] | | | | | | | | +--------+ + + + + documented as of this encounter Visit Diagnoses Not on filedocumented in this encounter"
--- OUTSIDE RECORDS SUMMARY | ~2019-10-16 | XMS | Encounter Summary ---
Demographics + + + | Address | [address] | | | [place] [address] | + + + | Home Phone [...] + +------+ + | Care Director Of Reimbursement Name | Role | Phone | + [...] | | | | [address] Physician's | [place], [place] | | | | | [address] | [address] | | | | | [place], [place] | [phone] | | | | | [address] | | | | | | [phone] | | | +--------+ + + + [...]
--- OUTSIDE RECORDS SUMMARY | ~2019-10-16 | XMS | Encounter Summary ---
Demographics + + + | Address | [address] | | | [place] [address] | + + + | Home Phone [...] Providers + +------+ + | Care Digital Developer Name | Role | Phone | [...] | | | [facility] | [place], [place] | and counseling | | | | [address] | [address] | | | | | [address] | [phone] | | | | | Physician's Pavilion | | | | | | Physician's | | | | | | Pavilion [place], | | | | | | [place] [address] | | | | | | [phone] | | | +--------+ + + + [...]
--- OUTSIDE RECORDS SUMMARY | ~2019-10-16 | XMS | Encounter Summary ---
Demographics + + + | Address | [address] | | | [place] [address] | + + + | Home Phone [...] Team Providers + +------+ + | Care Cage Loader Name | Role | Phone | + +------+ + | Pedrito Gutierrez MD | PCP | | + +------+ + Encounter Details +--------+---------+ + + + | Date | Type | Department | Care Team | Description | +--------+---------+ + + + | 11/24/ | Office | Comprehensive Pain | Nathalia Arora | Left Knee Pain; | | 2006 | Visit | [facility] | [address] | Spondylosis with | | | | [address] | [address] [place], | Myelopathy, Lumbar | | | | [place] Mailcode: | [place] [address] | Region; Herniated | | | | [facility] | | Lumbar | | | | Health and Healing, | | Intervertebral Disc | | | | | | L4-5; Fibromyalgia | | | | Floor [place], [place] | | syndrome 729.1 | | | | [address] | | | | | | [phone] | | | +--------+---------+ + + + [...] December 02, 2006 Patient: Belinda J Shefali, [id number], 1960 I agree with the proposed Physical Therapy Treatment Plan. Provider: DELFINA MOLINA ANP Nathalia Garrett - 007 11:16 AM PDT Physical Therapy Medicare Progress Note Date: 11/27/2006 Belinda Barnes Shefali [id number]. 1960 Start of Care: 11/24/2006 Referring Provider: [...] the free margin and undersurface of the gunstock spray unit adjuster horn of the medial meniscus suspicious for [...] gait using bilateral lofstrand crutches Patient's goals: halfway: Ambulation with single based cane Treatment: Patient [...] are to increased strength and endurance . FDC goals: Improve gait so patient can ambulate with single based cane. Plan: Patient will return for f/u visit in 2 weeks and at that time will progress in core, hip, and knee strengthening regime. Treatment began: 1100 Treatment ended: 1200 Nathalia Arora, Physical Therapist License #[id number] documented in this encoun ter Plan of Treatment + + +--------+ + + | Name | Type | Priori | Associated Diagnoses | Order Schedule | | | | ty | | | + + +--------+ + + | [facility] | Procedures | Routin | [...]
--- OUTSIDE RECORDS SUMMARY | ~2019-10-16 | XMS | Encounter Summary ---
Demographics + + + | Address | [address] | | | [place] [address] | + + + | Home Phone [...] Team Providers + +------+ + | Care Publicity Manager Name | Role | Phone | + +------+ + | Sulaiman Carrera MD | PCP | | + +------+ + Encounter Details +--------+ + + + + | Date | Type | Department | Care Team | Description | +--------+ + + + + | 08/09/ | Hospital | Diagnostic Imaging | | | | 2013 | Encounter | Services at [facility] | | | | | | [address] | | | | | | [address] [place] | | | | | | [facility], [address] [place] [address] | | | | | | [place], [place] | | | | | | [address] | | | | | | [phone] | | | +--------+ + + + [...] | + +---------+ + + | [facility] | | | | | [...]
--- OUTSIDE RECORDS SUMMARY | ~2019-10-16 | XMS | Encounter Summary ---
Demographics + + + | Address | [address] | | | [place] [address] | + + + | Home Phone [...] Providers + +------+ + | Care Commercial Loan Reviewer Name | Role | Phone | [...] Lab findings, | | 2006 | | [place] [address] | [address] | teaching, guidance, | | | | Ave Mailcode: CH4S | [address] | and counseling | | | | [facility] | [place], [place] | | | | | and Healing, | [address] | | | | | [facility] | [phone] | | | | | [place], [place] | | | | | | [address] | | | | | | [phone] | | | +--------+ + + + [...]
--- OUTSIDE RECORDS SUMMARY | ~2019-10-16 | XMS | Encounter Summary ---
Demographics + + + | Address | [address] | | | [place] [address] | + + + | Home Phone [...] Team Providers + +------+ + | Care History Department Chair Name | Role | Phone [...] + + | 06/17/ | Telephone | [facility] | Alanis, | Referral | | 2019 | | MEDICINE [address] [place] [address] | MD Petrona | | | | | [facility] | [address] [place] [address] | | | | | [place] [address] | [place] [address] | | | | | [phone] | [phone] | | | | | | | [...] | | | | | [place] [address] | | | | | | [phone] | | | | | | | | +--------+ + + + + | 12/20/ | Office | Audiology | Elisabet Munson MS | | 2019 | Visit | | [facility] [address] | | | | | [address] | | | | | | [place] [address] | | | | | | [phone] | | | | | | | | +--------+ + + + + | 12/20/ | Office | Otolaryngology | Ulysses Genao MD | | | 2020 | Visit | | [address] | | | | | | [address] [place], | | | | | | [place] [address] | | | | | | [phone] | | | | | | | | +--------+ + + + + documented as of this encounter Visit Diagnoses Not on filedocumented in this encounter"
--- OUTSIDE RECORDS SUMMARY | ~2019-10-16 | XMS | Encounter Summary ---
Demographics + + + | Address | [address] | | | [place] [address] | + + + [...] Providers + +------+ + | Care Director Cloud Transformation Name | Role | Phone | + [...]
--- OUTSIDE RECORDS SUMMARY | ~2019-10-16 | XMS | Encounter Summary ---
Demographics + + + | Address | [address] | | | [place] [address] | + + + | Home Phone [...] Providers + +------+ + | Care Epic Cadence Analyst Name | Role | Phone | [...] 10/07/ | Office | [facility] | Lukasz Charles, | Major Depressive | | 2006 | Visit | [address] | PhD [address] | Disorder, Recurrent | | | | Mailcode: CH15P | [facility] [place] | Episode, Moderate | | | | Center for Health | [address] | ([facility]); Spondylosis | | | | and Healing, | [phone] | with Myelopathy, | | | | Building | | Lumbar Region; | | | | Floor [facility] [place] | | Chronic Abdominal | | | | [address] | | Pain; Adjustment | | | | [phone] | | Disorder with | | | [...] - 10/07/2006 11:10 AM PDTPROGRESS NOTE: Belinda eMehan is a 46 y.o. female with head, [...] will need to continue self-c are. Diagnosis: [place] I: 1. (296.32) Major depressive disorder, recurrent, moderate. 2. (309.24) Adjustment disorder with anxiety. 3. 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 [place] II: Deferred [place] III: abdominal pain, migraine headache, low back pain. [place] IV: low finances [place] V: GAF 50 Plan: Return in 2 weeks. Schedule 4 follow-up appointments. Check preparation for move and for niece's visit. Check [employer] gym, pacing, relaxation, activity, distraction. Check "Managin g Pain..." book. Continue cognitive/behavioral therapy. Total time spent with patient was approximately 45 minutes. LUKASZ CHARLES PHD [facility] [address] [facility] [place] [address] documented in this encount er Plan of [...] | | | | ([facility]) Spondylosis | | | | | [...]
--- OUTSIDE RECORDS SUMMARY | ~2019-10-16 | XMS | Encounter Summary ---
Demographics + + + | Address | [address] | | | [place] [address] | + + + | Home Phone [...] Providers + +------+ + | Care Motorcycle Repairer Name | Role | Phone | [...] | | | | | [address] [place], | | | | | | [place] [address] | | | | | | [phone] | | +--------+ + + + + [...] | | + +---------+ + + | [facility] DEPARTMENT OF | | | | [...] | | + +---------+ + + | [facility] DEPARTMENT [facility] | | | | [...] | | + +---------+ + + | [facility] DEPARTMENT OF | | | | | RADIOLOGY | | | | + +---------+ + + documented in this encounter Visit Diagnoses Not on filedocumented in this encounter"
--- OUTSIDE RECORDS SUMMARY | ~2019-10-16 | XMS | Encounter Summary ---
Demographics + + + | Address | [address] | | | [place] [address] | + + + | Home Phone [...] + +------+ + | Care Labor Relations Supervisor Name | Role | Phone | [...] [address] | | | | | | [place], [place] | | | | | | [address] | | | | | | [phone] | | | +--------+--------+ + + + [...]
--- OUTSIDE RECORDS SUMMARY | ~2019-10-16 | XMS | Encounter Summary ---
Demographics + + + | Address | [address] | | | [place] [address] | + + + | Home Phone [...] Providers + +------+ + | Care Material Handling Crew Supervisor Name | Role | Phone [...]
--- OUTSIDE RECORDS SUMMARY | ~2019-10-16 | XMS | Encounter Summary ---
Demographics + + + | Address | [address] | | | [place] [address] | + + + | Home Phone [...] Team Providers + +------+ + | Care Mess Attendant Crew Name | Role | Phone | + [...] | | | | low back | Petrona | [address] | | | | | pain without | , MD [address] | [place], [place] | | | | | sciatica | [address] | [address] | | | | | Lumbar | [place], | Phone: | | | | | stenosis | [place] | [phone] | | | | | Opiate | [address] | Fax: | | | | | dependence, | Phone: | [phone] | | | | | continuous | [phone] | | | | | | (HCC) | Fax: | | | | | | | [phone] | | +--------+ + + + + + Reason for Visit + + + | Reason | Comments | + + + | Medication Refill | | + + + Encounter Details +--------+---------+ + + + | Date | Type | Department | Care Team | Description | +--------+---------+ + + + | 02/23/ | Office | [facility] | Emmy-[place], | B12 deficiency | | 2017 | Visit | MEDICINE [address] [place] [address] | MD Petrona | (Primary Dx); | | | | [facility] | [address] [place] [address] | Chronic bilateral | | | | [place] [address] | [place] [address] | low back pain | | | | [phone] | [phone] | without sciatica; | | | | [...] AM PDTWe are referr ing you to [facility] in [place]. B12 shot today. documented in this encounter Progress Notes Petrona Thapa MD - 02/23/2017 10:15 AM PDTFormatting of this note might be d ifferent from the original. CHIEF COMPLAINT Chief Complaint Patient presents with Medication Refill HPI Belindavera Meehan is a 57 y.o. [...] interested in seein a pain clinic in [facility] as she is an [place] resident. No [...] Chronic pain COPD (chronic obstructive pulmonary disease) ([facility]) Depression Diarrhea Dumping syndrome Fibromyalgia Hyperparathyroidism ([facility]) Hypothyroidism IBS (irritable bowel syndrome) Lumbar radiculopathy primarily right 01/04/2015 Meniere syndrome Migraine Migraines Obesity OLIVER (obstructive sleep apnea) Osteoarthritis, generalized Osteopenia Osteoporosis Peripheral neuropathy ([facility]) Rheumatoid arthritis ([facility]) Right arm pain 01/04/2015 RLS (restless legs syndrome) S/P lumbar fusion 01/04/2015 Scoliosis Stroke ([facility]) Syncope Tremor FAMILY HISTORY Family History Problem [...] Reactions Levofloxacin Hives and Itching Amitriptyline Hcl Awnhtwpfaz-Lmlp-Joftkjai Cephalexin Ciprofloxacin Clarithromycin Clindamycin Hcl Codeine Sulfate [...] Return in about 2 months (around 04/25/2017). Lew colin in this encounter Plan of [...] | | | | | [place] [address] | | | | | | [phone] | | | | | | | | +--------+ + + + + | 12/20/ | Office | Audiology | Elisabet Munson MS | | | 2019 | Visit | | [facility] [address] | | | | [address] [place] | | | | | | [place] [address] | | | | | | [phone] | | | | | | | | +--------+ + + + + | 12/20/ | Office | Otolaryngology | Ulysses Genao MD | | | 2019 | Visit | | [address] | | | | | | [address] [place], | | | | | | [place] [address] | | | | | | [phone] | | | | | | | [...]
--- OUTSIDE RECORDS SUMMARY | ~2019-10-16 | XMS | Encounter Summary ---
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 1960 Start of Care: 06/23/2006 Referring Provider: [...] patient has increased her walking time at [employer] to 30-40 minutes daily, no t able [...] + + +--------+ + + | [facility] | Procedures | Routin | Spondylosis [...] + + +--------+ + + | [facility] | Procedures | Routin | Spondylosis [...]
--- OUTSIDE RECORDS SUMMARY | ~2019-10-16 | XMS | Encounter Summary ---
Demographics + + + | Address | [address] | | | [place] [address] | + + + | Home Phone [...] Team Providers + +------+ + | Care Yard Goods Salesperson Name | Role | Phone | [...] | | | | | [address] [facility] | | | | | | [place], [place] | | | | | | [address] | | | | | | [phone] | | | +--------+ + + + [...] | | | | | [place] [address] | | | | | | [phone] | | | | | | | | +--------+ + + + + | 12/20/ | Office | Audiology | Elisabet Munson MS | | | 2019 | Visit | | [facility] [address] | | | | | | [place] | | | | | | [place] [address] | | | | | | [phone] | | | | | | | | +--------+ + + + + | 12/20/ | Office | Otolaryngology | Genao, Ulysses E, MD | | | 2020 | Visit | | [address] [place] | | | | | | [address] [place], | | | | | | [place] [address] | | | | | | [phone] | | | | | | | | +--------+ + + + + documented as of this encounter Visit Diagnoses Not on filedocumented in this encounter"
--- OUTSIDE RECORDS SUMMARY | ~2019-10-16 | XMS | Encounter Summary ---
Demographics + + + | Address | [address] | | | [place] [address] | + + + | Home Phone [...] Providers + +------+ + | Care Solar Installer Technician Name | Role | Phone | [...] + + | 07/06/ | Telephone | [facility] | Alanis, | Transfer Orders | | 2018 | | [address] | MD Petrona | | | | | [facility] | [address] [place] [address] | | | | | [place] [address] | [place] [address] | | | | | [phone] | [phone] | | | | | | | [...] | | | | | [place] [address] | | | | | | [phone] | | | | | | | | +--------+ + + + + | 12/20/ | Office | Audiology | Ceasar MunsonahMS | | | 2019 | Visit | | [facility] [address] | | | | | [address] [place] [address] [place] | | | | | | [place] [address] | | | | | | [phone] | | | | | | | | +--------+ + + + + | 12/20/ | Office | Otolaryngology | Ulysses Genao MD | | | 2019 | Visit | | [address] [place] | | | | | | [address] [place], | | | | | | [place] [address] | | | | | | [phone] | | | | | | | | +--------+ + + + + documented as of this encounter Visit Diagnoses Not on filedocumented in this encounter"
--- OUTSIDE RECORDS SUMMARY | ~2019-10-16 | XMS | Encounter Summary ---
Demographics + + + | Address | [address] | | | [place] [address] | + + + | Home Phone [...] Providers + +------+ + | Care Stone Spreader Operator Name | Role | Phone [...] | | | | [place], | [address] | | | | | | [place] | Phone: | | | | | | [address] | [phone] | | | | | | Phone: | Fax: | | | | | | [phone] | [phone] | | | | | | Fax: | | | | | | | [phone] | | +--------+ + + + + + Encounter Details +--------+---------+ + + + | Date | Type | Department | Care Team | Description | +--------+---------+ + + + | 11/16/ | Office | [facility] | Alanis, | Diarrhea, | | 2017 | Visit | GASTROENTEROLOGY | MD Petrona | unspecified type | | | | [address] [place] | [address] [facility] | (Primary Dx); | | | | [address] [place], [place] | [place] [address] | Chronic diarrhea; | | | | [address] | [phone] | S/P gastric bypass; | | | | [phone] | | Gastroesophageal | | | | | Luther Brito MD | reflux disease, | | | | | [address] | esophagitis presence | | | | | [place], [place] | not specified; | | | | | [address] | History of gastric | | | | | [phone] | ulcer; Abdominal | | | | | | pain, unspecified | | | | | | abdominal location; | | | | | | Narcotic dependence | | | | | | ([facility]); Obesity (BMI | | | | | [...] + documented in this encounter Progress Notes Dixie Salomon RN - 11/16/2017 9:30 AM PDTStool studies ordered and patient will complet e at [facility] in [place], orders were faxed; scheduled for egd/colon prop on 12/[address] Brito; advised to hold PPI day of procedure, she agreed. 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 in [place]. documented in this encounter Plan of Treatment +--------+ + + + + | Date | Type | Specialty | Care Team | Description | +--------+ + + + + | 05/04/ | Clinical | Internal Medicine | | | | 2019 | Support | | | | +--------+ + + + + | 11/14/ | Office | Internal Medicine | Alanis, | | | 2019 | Visit | | MD Petrona | | | | | | [address] [place] | | | | | | [place], [place] [address] | | | | | | [phone] | | | | | | | | +--------+ + + + + | 12/20/ | Office | Audiology | Elisabet Munson MS | | | 2019 | Visit | | [facility] [address] | | | | | [address] [place] [address] [place] | | | | | | [place] [address] | | | | | | [phone] | | | | | | | | +--------+ + + + + | 12/20/ | Office | Otolaryngology | Ulysses Genao MD | | | 2019 | Visit | | [address] [place] | | | | | | [address] [place], | | | | | | [place] [address] | | | | | | [phone] | | | | | | | [...]
--- OUTSIDE RECORDS SUMMARY | ~2019-10-16 | XMS | Encounter Summary ---
Demographics + + + | Address | [address] | | | [place] [address] | + + + | Home Phone [...] Providers + +------+ + | Care Face Boss Name | Role | Phone | + +------+ + | Petrona Thapa | PCP | | | MD | | | + +------+ + Reason for Visit + + + | Reason | Comments | + + + | Medication Problem | | + + + Encounter Details +--------+ + + + + | Date | Type | Department | Care Team | Description | +--------+ + + + + | 06/04/ | Telephone | [facility] | Alanis, | Medication Problem | | 2016 | | MEDICINE [address] [place] [address] | MD Petrona | | | | | [facility] | [address] [place] [address] | | | | | [place] [address] | [place] [address] | | | | | [phone] | [phone] | | | | | | | [...] | | | | | | [address] [facility] [place] | | | | | | [place] [address] | | | | | | [phone] | | | | | | | | +--------+ + + + + | 12/20/ | Office | Audiology | Elisabet Munson MS | | | 2019 | Visit | | [facility] [address] | | | | | [address] [place] [address] [place] | | | | | | [place] [address] | | | | | | [phone] | | | | | | | | +--------+ + + + + | 12/20/ | Office | Otolaryngology | Ulysses Genao MD | | | 2019 | Visit | | [address] [place] | | | | | | [address] [place], | | | | | | [place] [address] | | | | | | [phone] | | | | | | | | +--------+ + + + + documented as of this encounter Visit Diagnoses Not on filedocumented in this encounter"
--- OUTSIDE RECORDS SUMMARY | ~2019-10-16 | XMS | Encounter Summary ---
Demographics + + + | Address | [address] | | | [place] [address] | + + + | Home Phone [...] + +------+ + | Care Product Marketing Analyst Name | Role | Phone | + +------+ + | Pedrito Gutierrez MD | PCP | | + +------+ + Encounter Details +--------+ + + + + | Date | Type | Department | Care Team | Description | +--------+ + + + + | 11/24/ | Respiratory | | Other, Faculty | | | 2003 | | | [phone] | | | | [facility] | | [...]
--- OUTSIDE RECORDS SUMMARY | ~2019-10-16 | XMS | Encounter Summary ---
Demographics + + + | Address | [address] | | | [place] [address] | + + + | Home Phone [...] Team Providers + +------+ + | Care Carriage Operator Name | Role | Phone | [...] + + | 03/02/ | Telephone | [facility] | Alanis, | Results, Imaging | | 2019 | | MEDICINE [address] | MD Petrona | (outside imaging | | | | [address] [place] | [address] [facility] | report from St. | | | | [place] [address] | [place] [address] | [facility]) | | | | [phone] | [phone] | | | | | | | [...] | | | | | | [place] [address] | | | | | | [phone] | | | | | | | | +--------+ + + + + | 12/20/ | Office | Audiology | Elisabet Munson MS | | | 2019 | Visit | | [facility] [address] | | | | | [address] [place] | | | | | | [place] [address] | | | | | | [phone] | | | | | | | | +--------+ + + + + | 12/20/ | Office | Otolaryngology | Ulysses Genao MD | | | 2019 | Visit | | [address] [place] | | | | | | [address] [place], | | | | | | [place] [address] | | | | | | [phone] | | | | | | | | +--------+ + + + + documented as of this encounter Visit Diagnoses Not on filedocumented in this encounter"
--- OUTSIDE RECORDS SUMMARY | ~2019-10-16 | XMS | Encounter Summary ---
Demographics + + + | Address | [address] | | | [place] [address] | + + + | Home Phone [...] Team Providers + +------+ + | Care Ager Tender Name | Role | Phone | [...] | | | [facility] | [place], [place] | | | | | [address] | [address] | | | | | [address] | [phone] | | | | | [facility] | | | | | | Physician's | | | | | | Pavilion [place], | | | | | | [place] [address] | | | | | | [phone] | | | +--------+ + + + [...]
--- OUTSIDE RECORDS SUMMARY | ~2019-10-16 | XMS | Encounter Summary ---
Demographics + + + | Address | [address] | | | [place] [address] | + + + | Home Phone [...] Team Providers + +------+ + | Care Judge Name | Role | Phone | [...] | ANP | | | | | [facility] | | | | | | [address] | | | | | | Mailcode: CH15P | | | | | | [facility] | | | | | | and Healing, | | | | | | Building ,[address]th | | | | | | Floor [place], [place] | | | | | | [address] | | | | | | [phone] | | | +--------+ + + + [...]
--- OUTSIDE RECORDS SUMMARY | ~2019-10-16 | XMS | Encounter Summary ---
Demographics + + + | Address | [address] | | | [place] [address] | + + + | Home Phone [...] Team Providers + +------+ + | Care Gasfitter Name | Role | Phone | + [...]
--- OUTSIDE RECORDS SUMMARY | ~2019-10-16 | XMS | Encounter Summary ---
Demographics + + + | Address | [address] | | | [place] [address] | + + + | Home Phone [...] Team Providers + +------+ + | Care Tipple Supervisor Name | Role | Phone | [...] [address] | | | | | [facility] | [place], [place] | | | | | [address] | [address] | | | | | [address] | [phone] | | | | | [facility] | | | | | | Physician's | | | | | | Pavilion [place], | | | | | | [place] [address] | | | | | | [phone] | | | +--------+--------+ + + + [...]
--- OUTSIDE RECORDS SUMMARY | ~2019-10-16 | XMS | Encounter Summary ---
Demographics + + + | Address | [address] | | | [place] [address] | + + + | Home Phone [...] Team Providers + +------+ + | Care Psychiatric Clinical Nurse Specialist Name | Role | Phone | [...] + + | 07/19/ | Telephone | [facility] | Alanis, | Lab Results | | 2019 | | MEDICINE [address] [place] [address] | MD Petrona | | | | | [facility] | [address] [place] [address] | | | | | [place] [address] | [place] [address] | | | | | [phone] | [phone] | | | | | | | [...] | | | | | [place] [address] | | | | | | [phone] | | | | | | | | +--------+ + + + + | 12/20/ | Office | Audiology | Elisabet Munson MS | | 2019 | Visit | | [facility] [address] | [address] [place] | | | | | | [place] [address] | | | | | | [phone] | | | | | | | | +--------+ + + + + | 12/20/ | Office | Otolaryngology | Ulysses Genao MD | | | 2020 | Visit | | [address] [place] | | | | | | [address] [place], | | | | | | [place] [address] | | | | | | [phone] | | | | | | | | +--------+ + + + + documented as of this encounter Visit Diagnoses Not on filedocumented in this encounter"
--- OUTSIDE RECORDS SUMMARY | ~2019-10-16 | XMS | Encounter Summary ---
Demographics + + + | Address | [address] | | | [place] [address] | + + + | Home Phone [...] Team Providers + +------+ + | Care Asbestos Worker Helper Name | Role | Phone | [...] | [address] | [place], [place] | | | | | [place], [place] | [address] | | | | | [address] | | | | | | [phone] | | | +--------+ + + + [...] | | | | | [place] [address] | | | | | | [phone] | | | | | | | | +--------+ + + + + | 12/20/ | Office | Audiology | Elisabet Munson MS | | | 2019 | Visit | | [facility] [address] | | | | | | [address] [place] | | | | | | [place] [address] | | | | | | [phone] | | | | | | | | +--------+ + + + + | 12/20/ | Office | Otolaryngology | Ulysses Genao MD | | | 2020 | Visit | | [address] [facility] | | | | | | [address] [place], | | | | | | [place] [address] | | | | | | [phone] | | | | | | | | +--------+ + + + + documented as of this encounter Visit Diagnoses Not on filedocumented in this encounter"
--- OUTSIDE RECORDS SUMMARY | ~2019-10-16 | XMS | Encounter Summary ---
Demographics + + + | Address | [address] | | | [place] [address] | + + + | Home Phone [...] Providers + +------+ + | Care Ceramics Artist Name | Role | Phone | [...] 09/09/ | Office | [facility] | Lukasz Charles, | Major Depressive | | 2006 | Visit | [address] | PhD [address] | Disorder, Recurrent | | | | Mailcode: CH15P | [place], [place] | Episode, Moderate | | | | [facility] | [address] | (HCC); DJD | | | | and Healing, | [phone] | (Degenerative Joint | | | | Building | | Disease) of Left | | | | Floor [place], [place] | | Knee; Neck Pain; | | | | [address] | | Herniated Lumbar | | | | [phone] | | Intervertebral Disc | | | [...] is making an effort to improve. Diagnosis: Nichols I: 1. (296.32) Major depressive disorder, recurrent, moderate. 2. (309.24) Adjustment disorder with anxiety. 3. 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 Nichols II: Deferred Nichols III: abdominal pain, migraine headache, low back pain. Nichols IV: low finances Nichols V: GAF 50 Plan: Return in 2 weeks. Check preparation for niece's visit, Curves gym, pacing, relaxation, ac tivity, distraction. Check managing Pain... book. Continue cognitive/behavioral therapy. Total time spent with patient was approximately 45 minutes. LUKASZ CHARLES PHD [facility] [address] [facility] [address] [place] [address] documented in this encount er Plan of [...]
--- OUTSIDE RECORDS SUMMARY | ~2019-10-16 | XMS | Encounter Summary ---
Demographics + + + | Address | [address] | | | [place] [address] | + + + | Home Phone [...] Providers + +------+ + | Care Cnc Manufacturing Engineer Name | Role | Phone | [...] + + | 09/01/ | Telephone | [facility] | Alanis, | Sinus Pain | | 2019 | | MEDICINE [address] [place] [address] | MD Petrona | | | | | [facility] | [address] [place] [address] | | | | | [place] [address] | [place] [address] | | | | | [phone] | [phone] | | | | | | | [...] | | | | | [place] [address] | | | | | | [phone] | | | | | | | | +--------+ + + + + | 12/20/ | Office | Audiology | Elisabet Munson MS | | 2019 | Visit | | [facility] | | | | | [address] [place] | | | | | | [place] [address] | | | | | | [phone] | | | | | | | | +--------+ + + + + | 12/20/ | Office | Otolaryngology | Ulysses Genao MD | | | 2020 | Visit | | [address] | | | | | | [address] [place], | | | | | | [place] [address] | | | | | | [phone] | | | | | | | | +--------+ + + + + documented as of this encounter Visit Diagnoses Not on filedocumented in this encounter"
--- OUTSIDE RECORDS SUMMARY | ~2019-10-16 | XMS | Encounter Summary ---
Demographics + + + | Address | [address] | | | [place] [address] | + + + | Home Phone [...] Team Providers + +------+ + | Care Behaviour Support Teacher Name | Role | Phone | + +------+ + | Pedrito Gutierrez MD | PCP | | + +------+ + Encounter Details +--------+ + + + + | Date | Type | Department | Care Team | Description | +--------+ + + + + | 05/20/ | Telephone | Digestive Health | Rohan Foley MD | | | 2005 | | [place] [facility] [address] | | | | | | [address] | | | | | | Mailcode: Center | | | | | | for Health and | | | | | | [facility], Building [address] | | | | | | [place], [place] | | | | | | [address] | | | | | | [phone] | | | +--------+ + + + [...]
--- OUTSIDE RECORDS SUMMARY | ~2019-10-16 | XMS | Encounter Summary ---
Demographics + + + | Address | [address] | | | [place] [address] | + + + | Home Phone [...] Team Providers + +------+ + | Care Edge Kitter Name | Role | Phone | + +------+ + PCP | Unavailable | + +------+ + Encounter Details +--------+ + + + + | Date | Type | Department | Care Team | Description | +--------+ + + + + | 07/31/ | Hospital | [facility] | Ruben Tobias | | | 2005 | Encounter | MED CTR SLEEP | MD Raji [address] | | | | | [place] [address] | [facility] | | | | | [place], [place] | [place] [address] | | | | | [address] | [phone] | | | | | [phone] | | | +--------+ + + + [...] | | | | | [place] [address] | | | | | | [phone] | | | | | | | | +--------+ + + + + | 12/20/ | Office | Audiology | Elisabet Munson MS | | | 2019 | Visit | | [facility] | | | | | | [address] [place] [address] [place] | | | | | | [place] [address] | | | | | | [phone] | | | | | | | | +--------+ + + + + | 12/20/ | Office | Otolaryngology | Ulysses Genao MD | | | 2020 | Visit | | [address] [facility] | | | | | | [address] [place], | | | | | | [place] [address] | | | | | | [phone] | | | | | | | | +--------+ + + + + documented as of this encounter Visit Diagnoses Not on filedocumented in this encounter"
--- OUTSIDE RECORDS SUMMARY | ~2019-10-16 | XMS | Encounter Summary ---
Demographics + + + | Address | [address] | | | [place] [address] | + + + | Home Phone [...] Team Providers + +------+ + | Care Rod Hanger Name | Role | Phone | + [...] | | | [facility] | [place], [place] | | | | | [address] | [address] | | | | | [address] | [phone] | | | | | [facility] | | | | | | Physician's | | | | | | Pavilion [place], | | | | | | [place] [address] | | | | | | [phone] | | | +--------+ + + + [...]
--- OUTSIDE RECORDS SUMMARY | ~2019-10-16 | XMS | Encounter Summary ---
Demographics + + + | Address | [address] | | | [place] [address] | + + + | Home Phone [...] Providers + +------+ + | Care Wood Milling Machine Operator Name | Role | Phone | + +------+ + | Pedrito Gutierrez MD | PCP | | + +------+ + Encounter Details +--------+ + + + + | Date | Type | Department | Care Team | Description | +--------+ + + + + | 08/22/ | Hospital | Radiology/Imaging | | | | 2008 | Encounter | [facility] at [facility] [address] | | | | | | [address] Mailcode: | | | | | | CH3G [facility] | | | | | | Health and Healing, | | | | | | [place] [address], | | | | | | Floor [place], [place] | | | | | | [address] | | | | | | [phone] | | | +--------+ + + + [...]
--- OUTSIDE RECORDS SUMMARY | ~2019-10-16 | XMS | Encounter Summary ---
Demographics + + + | Address | [address] | | | [place] [address] [...] Naeem Mcrae | | | | | [facility] | [place], [place] | | | | | and [place], | [address] | | | | | [facility] , | [phone] | | | | | Floor [place], [place] | | | | | | [address] | | | | | | [phone] | | | +--------+ + + + [...]
--- OUTSIDE RECORDS SUMMARY | ~2019-10-16 | XMS | Encounter Summary ---
Demographics + + + | Address | [address] | | | [place] [address] | + + + | Home Phone [...] Providers + +------+ + | Care Tool Maintenance Technician Name | Role | Phone | [...] + + | 02/01/ | Telephone | [facility] | Alanis, | Other (B12 shot) | | 2017 | | MEDICINE [address] [place] [address] | MD Petrona | | | | | [facility] | [address] [place] [address] | | | | | [place] [address] | [place] [address] | | | | | [phone] | [phone] | | | | | | | [...] | | | | | [place] [address] | | | | | | [phone] | | | | | | | | +--------+ + + + + | 12/20/ | Office | Audiology | Elisabet Munson MS | | 2019 | Visit | | [facility] [address] | | | | | [address] [place] | | | | | | [place] [address] | | | | | | [phone] | | | | | | | | +--------+ + + + + | 12/20/ | Office | Otolaryngology | Ulysses Genao MD | | | 2020 | Visit | | [address] | | | | | | [address] [place], | | | | | | [place] [address] | | | | | | [phone] | | | | | | | | +--------+ + + + + documented as of this encounter Visit Diagnoses Not on filedocumented in this encounter"
--- OUTSIDE RECORDS SUMMARY | ~2019-10-16 | XMS | Encounter Summary ---
Demographics + + + | Address | [address] | | | [place] [address] | + + + | Home Phone [...] Team Providers + +------+ + | Care Bronzer Name | Role | Phone | + [...] + + | 04/02/ | Refill | [facility] | Alanis, | Medication Refill | | 2018 | | MEDICINE [address] [place] [address] | MD Petrona | | | | | [facility] | [address] [place] [address] | | | | | [place] [address] | [place] [address] | | | | | [phone] | [phone] | | | | | | | [...] | | | | | [place] [address] | | | | | | [phone] | | | | | | | | +--------+ + + + + | 12/20/ | Office | Audiology | DarioElisabet ramires MS | | | 2019 | Visit | | [facility] [address] | | | | | [address] [place] | | | | | | [place], [place] [address] | | | | | | [phone] | | | | | | | | +--------+ + + + + | 12/20/ | Office | Otolaryngology | Ulysses Genao MD | | | 2019 | Visit | | [address] | | | | | | [address] [place], | | | | | | [place] [address] | | | | | | [phone] | | | | | | | | +--------+ + + + + documented as of this encounter Visit Diagnoses Not on filedocumented in this encounter"
--- OUTSIDE RECORDS SUMMARY | ~2019-10-16 | XMS | Encounter Summary ---
Demographics + + + | Address | [address] | | | [place] [address] | + + + | Home Phone [...] Providers + +------+ + | Care Food Service Associate Name | Role | Phone | [...] + | 08/31/ | Refill | [facility] | Alanis, | Medication Refill | | 2017 | | MEDICINE [address] [place] [address] | MD Petrona | | | | | [facility] | [address] [place] [address] | | | | | [place] [address] | [place] [address] | | | | | [phone] | [phone] | | | | | | | [...] | | | | | [place] [address] | | | | | | [phone] | | | | | | | | +--------+ + + + + | 12/20/ | Office | Audiology | Elisabet Munson | | | 2019 | Visit | | [facility] [address] | | | | | [address] [place] | | | | | | [place] [address] | | | | | | [phone] | | | | | | | | +--------+ + + + + | 12/20/ | Office | Otolaryngology | Ulysses Genao MD | | | 2019 | Visit | | [address] | | | | | | [address] [place], | | | | | | [place] [address] | | | | | | [phone] | | | | | | | | +--------+ + + + + documented as of this encounter Visit Diagnoses + + | Diagnosis | + + | Chronic bilateral low back pain without sciatica | + + documented in this encounter"
--- OUTSIDE RECORDS SUMMARY | ~2019-10-16 | XMS | Encounter Summary ---
Demographics + + + | Address | [address] | | | [place] [address] | + + + | Home Phone [...] Team Providers + +------+ + | Care Baby Registry Sales Consultant Name | Role | Phone [...] + + | 11/03/ | Telephone | [facility] | Alanis, | Headache | | 2019 | | MEDICINE [address] [place] [address] | MD Petrona | | | | | [facility] | [address] [facility] | | | | | [place] [address] | [place] [address] | | | | | [phone] | [phone] | | | | | | | [...] | | | | | [place] [address] | | | | | | [phone] | | | | | | | | +--------+ + + + + | 12/20/ | Office | Audiology | Elisabet Munson MS | | 2019 | Visit | | [facility] [address] | | | | | | [address] [place] | | | | | | [place] [address] | | | | | | [phone] | | | | | | | | +--------+ + + + + | 12/20/ | Office | Otolaryngology | Ulysses Genao MD | | | 2020 | Visit | | [address] | | | | | | [address] [place], | | | | | | [place] [address] | | | | | | [phone] | | | | | | | | +--------+ + + + + documented as of this encounter Visit Diagnoses Not on filedocumented in this encounter"
--- OUTSIDE RECORDS SUMMARY | ~2019-10-16 | XMS | Encounter Summary ---
Demographics + + + | Address | [address] | | | [place] [address] | + + + | Home Phone [...] Team Providers + +------+ + | Care Fund Director Name | Role | Phone | [...] | at [place]ce [place] | [facility] | | | | | [address] | [place] [address] | | | | | [address] | | | | | | [place], 2nd floor | | | | | | [place], [place] | | | | | | [address] | | | | | | [phone] | | | +--------+ + + + [...]
--- OUTSIDE RECORDS SUMMARY | ~2019-10-16 | XMS | Encounter Summary ---
Demographics + + + | Address | [address] | | | [place] [address] | + + + | Home Phone [...] Providers + +------+ + | Care Cleaning Specialist Name | Role | Phone | [...] as of this encounter Progress Notes Interface, Wind Farm Support Specialist In - 08/22/2005 2:06 AM PST [id number] [facility]NI [facility] Date: 07/31/2005 Clinic: Surgery [...] exploratory laparotomy. Plan: Emergency supply approved by [facility] in [place]. Quantity 35 was requested and will be filled. I will send a prescription for 40 additional oxycodone 5 mg. The patient will be seen in clinic in one week. Melisa Thorne / SHARIF [id number] / [id number] / [id number] / [id number] Electronically signed by Kenisha Melton 08-21-2005 07:00:10 PM documented corrie cortes this encounter Plan of Treatment Not on filedocumented as of this encounter Visit Diagnoses Not on filedocumented in this encounter"
--- OUTSIDE RECORDS SUMMARY | ~2019-10-16 | XMS | Encounter Summary ---
Demographics + + + | Address | [address] | | | [place] [address] | + + + | Home Phone [...] Providers + +------+ + | Care Railroad Repairer Name | Role | Phone | [...] + + | 05/28/ | Telephone | [facility] | Alanis, | Pain Management | | 2016 | | MEDICINE [address] [place] [address] | MD Petrona | | | | | [facility] | [address] [place] [address] | | | | | [place] [address] | [place] [address] | | | | | [phone] | [phone] | | | | | | | [...] | | | | | [place] [address] | | | | | | [phone] | | | | | | | | +--------+ + + + + | 12/20/ | Office | Audiology | Ceasar MunsonahMS | | | 2019 | Visit | | [facility] [address] | | | | | | [address] [place] [address] [place] | | | | | | [place] [address] | | | | | | [phone] | | | | | | | | +--------+ + + + + | 12/20/ | Office | Otolaryngology | Ulysses Genao MD | | | 2019 | Visit | | [address] | | | | | | [address] [place], | | | | | | [place] [address] | | | | | | [phone] | | | | | | | | +--------+ + + + + documented as of this encounter Visit Diagnoses Not on filedocumented in this encounter"
--- OUTSIDE RECORDS SUMMARY | ~2019-10-16 | XMS | Encounter Summary ---
Demographics + + + | Address | [address] | | | [place] [address] | + + + | Home Phone [...] Team Providers + +------+ + | Care Knockdown Worker Name | Role | Phone | [...] + + | 03/05/ | Telephone | [facility] | Alanis, | Other | | 2018 | | MEDICINE [address] [place] [address] | MD Petrona | | | | | [facility] | [address] [place] [address] | | | | | [place] [address] | [place] [address] | | | | | [phone] | [phone] | | | | | | | [...] | | | | | [place] [address] | | | | | | [phone] | | | | | | | | +--------+ + + + + | 12/20/ | Office | Audiology | Elisabet Munson MS | | 2019 | Visit | | [facility] [address] | | | | | | [address] [place] | | | | | | [place] [address] | | | | | | [phone] | | | | | | | | +--------+ + + + + | 12/20/ | Office | Otolaryngology | Ulysses Genao MD | | | 2019 | Visit | | [address] [facility] | | | | | | [address] [place], | | | | | | [place] [address] | | | | | | [phone] | | | | | | | | +--------+ + + + + documented as of this encounter Visit Diagnoses + + | Diagnosis | + + | Non-intractable vomiting with nausea, unspecified vomiting type - Primary | + + documented in this encounter"
--- OUTSIDE RECORDS SUMMARY | ~2019-10-16 | XMS | Encounter Summary ---
Demographics + + + | Address | [address] | | | [place] [address] | + + + | Home Phone [...] Providers + +------+ + | Care Video Game Programmer Name | Role | Phone | [...] of this encounter Progress Notes Interface, Chief Of Staff Doctor In - 01/11/2005 5:17 PM PDT [place] [facility] [address] [place] [address] or June 26, 2003 Pedrito Gutierrez M.D. [address] [place] [address] RE: BELINDA MEEHAN MR #: [id number] Dear Dr. Gutierrez: I had the pleasure of seeing your patient, Ms. Belinda Meehan, today in the [facility] Division of Rheumatology Clinic. She was evaluated [...] Sincerely, Sesar Nash M.D. NURIA / SHARIF [id number] / [id number] / [id number] / [id number] cc: Kelley Alegre [address] [place] [address] FAX: [phone] signed by Interface, Chief Of Staff Doctor In at 01/11/2005 5:17 PM PDTdocumented in this encounter Plan of Treatment Not on filedocumented as of this encounter Visit Diagnoses Not on filedocumented in this encounter"
--- OUTSIDE RECORDS SUMMARY | ~2019-10-16 | XMS | Encounter Summary ---
Demographics + + + | Address | [address] | | | [place] [address] | + + + | Home Phone [...] Providers + +------+ + | Care Bench Lathe Operator Name | Role | Phone | [...] as of this encounter Progress Notes Interface, First Leveler In - 12/25/2005 2:07 AM PDT [id number] GEOVANNI Barnes [id number] Clinic Date: 12/05/2005 Clinic: General Surgery Clinic PHONE CONSULTATION Subjective: Belinda Meehan has been under our care with a history of gastric bypass and recurrent abdominal pain, nondiagnostic on multiple tests. She was requesting a prescription for oxycodone which will be sent to her home at [address] [place] [address]. Oxycodone 5 mg, 5 to 10 p.o. [...] Padgett in clinic. Melisa Thorne / SHARIF [id number] / [id number] / [id number] / [id number] Electronically signed by Kenisha Melton 12-24-2005 01:41:04 PM documented i n this encounter Plan of Treatment Not on filedocumented as of this encounter Visit Diagnoses Not on filedocumented in this encounter"
--- OUTSIDE RECORDS SUMMARY | ~2019-10-16 | XMS | Encounter Summary ---
Demographics + + + | Address | [address] | | | [place] [address] | + + + | Home Phone [...] Providers + +------+ + | Care Hoop Punch And Coiler Operator Name | Role | Phone | [...] Lab Results | | 2012 | | [facility] [address] | [facility] [address] | | | | | Sara [place] | [facility] [address] | | | | | Mailcode: Center | [place], [place] | | | | | for Health and | [address] | | | | | [place] [address] | [phone] | | | | | [place], [place] | | | | | | [address] | | | | | | [phone] | | | +--------+ + + + [...]
--- OUTSIDE RECORDS SUMMARY | ~2019-10-16 | XMS | Encounter Summary ---
Demographics + + + | Address | [address] | | | [place] [address] | + + + | Home Phone [...] Team Providers + +------+ + | Care Route Delivery Supervisor Name | Role | Phone [...] as of this encounter Progress Notes Interface, Extrusion Technician In - 01/12/2005 6:32 AM PDT Referred [...] she was going to go to the [email or web address] food store and try to find another [...] two months. Svetlana Maki R.D. SR/x35 P [id number] signed by Interface, Extrusion Technician In at 01/12/2005 6:32 AM [facility]ed in this encounter Plan of Treatment Not on filedocumented as of this encounter Visit Diagnoses Not on filedocumented in this encounter"
--- OUTSIDE RECORDS SUMMARY | ~2019-10-16 | XMS | Encounter Summary ---
Demographics + + + | Address | [address] | | | [place] [address] | + + + | Home Phone [...] Team Providers + +------+ + | Care Squad Sergeant Name | Role | Phone | [...] | | | Metabolism | bypass | [address] | [address] | | | | | Hypovitamino | [address], | Ave | | | | | sis [address] | [address] | [place], [place] | | | | | nutritional | [place] | [address] | | | | | deficiency | [address] | Phone: | | | | | Other | Phone: | [phone] | | | | | protein-jose manuel | [phone] | Fax: | | | | | nick | Fax: | [phone] | | | | | malnutrition | [phone] | | | | | | Weight | | | | | | | gain | | | | | | | Procedures | | | | | | | CONSULT TO | | | | | | | ENDO | | | | | | | [address] | | | +--------+--------+ + + + [...] | | | [facility] | [place], [place] | (Primary Dx); | | | | [address] | [address] | Metabolic syndrome X | | | | [address] | [phone] | 250.80; Essential | | | | Physician[facility] Pavilion | | hypertension 401.9; | | | | Physician's | | Unstable balance | | | | Pavilion [place], | | | | | | [place] [address] | | | | | | [phone] | | | +--------+---------+ + + + [...] Hives Mainly in the legs Clindamycin Codeine Alnfkgr-Vzjkuphdxi-Ubs-Caff Balance problems Fioricet W/Codeine (Edsltkkvby-Qnmwrkgshp-Deg-Cod) Keflex (Cephalexin) Morphine IM ( only in [facility]) made gut pain worse 08/27/06: Trial [...] U/L 41 ANION GAP 8 VITAMIN B12, [id number] pg/ml >2000 (H) HEMOGLOBIN A1C <=5.6 % [...] SERUM 15.0-85.0 pg/ml 222.9 (H) VITAMIN B12, [id number] pg/ml > 2000 HEMOGLOBIN A1C <=5.6 % [...] home vi a a long drive to [place]. She needs further evaluation of her right hip and SEA AIR LAND OFFICER. This c an be most easily accomplished [...] + +--------+ + + + | [place] | Routin | 08/09/2013 | IGT [...] MARQUAM | [address] | [place], [place] | | | [facility]ARE | [address] | [address] | | | TESTS | | | [...] VERONICA | [address] | [place], [place] | | | [facility] | [address] | [address] | | | TESTS | | | [...]
--- OUTSIDE RECORDS SUMMARY | ~2019-10-16 | XMS | Encounter Summary ---
Demographics + + + | Address | [address] | | | [place] [address] | + + + | Home Phone [...] Team Providers + +------+ + | Care Hr Coordinator Name | Role | Phone | + +------+ + | Sulaiman Carrera MD | PCP | | + +------+ + Encounter Details +--------+ + + + + | Date | Type | Department | Care Team | Description | +--------+ + + + + | 06/30/ | Telephone | [facility] | Lukasz Ogden, | | | 2013 | | [address] | PhD [address] | | | | | Mailcode: CH15P | [place], [place] | | | | | [facility] | [address] | | | | | and Healing, | [phone] | | | | | Building | | | | | | Floor [place], [place] | | | | | | [address] | | | | | | [phone] | | | +--------+ + + + [...]
--- OUTSIDE RECORDS SUMMARY | ~2019-10-16 | XMS | Encounter Summary ---
Demographics + + + | Address | [address] | | | [place] [address] | + + + | Home Phone [...] Team Providers + +------+ + | Care Appliance Line Assembler Name | Role | Phone [...] + + | 02/09/ | Telephone | [facility] | Alansi, | Other | | 2019 | | MEDICINE [address] [place] [address] | MD Petrona | | | | | [facility] | [address] [place] [address] | | | | | [place] [address] | [place] [address] | | | | | [phone] | [phone] | | | | | | | [...] | | | | | [place] [address] | | | | | | [phone] | | | | | | | | +--------+ + + + + | 12/20/ | Office | Audiology | Elisabet Munson MS | | 2019 | Visit | | [facility] [address] | | | | | | [address] [place] | | | | | | [place] [address] | | | | | | [phone] | | | | | | | | +--------+ + + + + | 12/20/ | Office | Otolaryngology | Ulysses Genao MD | | | 2020 | Visit | | [address] [facility] | | | | | | [address] [place], | | | | | | [place] [address] | | | | | | [phone] | | | | | | | | +--------+ + + + + documented as of this encounter Visit Diagnoses Not on filedocumented in this encounter"
--- OUTSIDE RECORDS SUMMARY | ~2019-10-16 | XMS | Encounter Summary ---
Demographics + + + | Address | [address] | | | [place] [address] | + + + | Home Phone [...] Providers + +------+ + | Care Dental Billing Specialist Name | Role | Phone | [...] [address] | | | | | | [place], [place] | | | | | | [address] | | | | | | [phone] | | | +--------+ + + + [...]
--- OUTSIDE RECORDS SUMMARY | ~2019-10-16 | XMS | Encounter Summary ---
Demographics + + + | Address | [address] | | | [place] [address] | + + + | Home Phone [...] Team Providers + +------+ + | Care Voice Intercept Technician Name | Role | Phone [...] | | | [facility] | [place], [place] | | | | | [address] | [address] | | | | | [address] | [phone] | | | | | Physician's | | | | | | Pavilion, 1st floor | | | | | | [place], [place] | | | | | | [address] | | | | | | [phone] | | | +--------+--------+ + + + [...]
--- OUTSIDE RECORDS SUMMARY | ~2019-10-16 | XMS | Encounter Summary ---
Demographics + + + | Address | [address] | | | [place] [address] | + + + | Home Phone [...] Team Providers + +------+ + | Care Cane Burner Name | Role | Phone | [...] [address] | | | | | [place], [place] | [place], [place] | | | | | [address] | [address] | | | | | [phone] | [phone] | | | | | | | [...] OF | [address] | [place] [address] | | | PATHOLOGY | [address] | | | + + + + + | [facility] DEPARTMENT OF | [address] | [place] [address] | | | PATHOLOGY | [address] [...] + + | [facility] DEPARTMENT OF | [address] | [place] [address] | | | PATHOLOGY | [address] | | | + + + + + | [facility] DEPARTMENT OF | [address] | [place] [address] | | | PATHOLOGY | [address] [...] Performed At | + + + | [id number] Estimated GFR > 60 mL/min/1.73 sq m if non- | [facility] | | 802171 Estimated GFR > 60 mL/min/1.73 sq m [...] [facility] | [address] | [place] [address] | | | PATHOLOGY | [address] | | | + + + + + | [facility] | [address] | [place] [address] | | | PATHOLOGY | [address] | | | + + + + + documented in this encounter Visit Diagnoses Not on filedocumented in this encounter"
--- OUTSIDE RECORDS SUMMARY | ~2019-10-16 | XMS | Encounter Summary ---
Demographics + + + | Address | [address] | | | [place] [address] | + + + | Home Phone [...] Providers + +------+ + | Care Art Supervisor Name | Role | Phone | [...] Rd | | | | | | [facility] | | | | | | [place], [facility] Floor | | | | | | [place], [place] | | | | | | [address] | | | | | | [phone] | | | +--------+ + + + [...]
--- OUTSIDE RECORDS SUMMARY | ~2019-10-16 | XMS | Encounter Summary ---
Demographics + + + | Address | [address] | | | [place] [address] | + + + | Home Phone [...] Team Providers + +------+ + | Care Tractor Crane Engineer Name | Role | Phone | + +------+ + | Pedrito Gutierrez MD | PCP | | + +------+ + Encounter Details +--------+---------+ + + + | Date | Type | Department | Care Team | Description | +--------+---------+ + + + | 08/05/ | Office | Comprehensive Pain | Nathalia Arora | Cervical Spondylosis | | 2006 | Visit | [facility] | [address] | without Myelopathy | | | | [place] [address] | [place]ina W[place], | (Primary Dx); | | | | [place] Mailcode: | [place] [address] | Spondylosis with | | | | [facility] | | Myelopathy, Lumbar | | | | Health and Healing, | | Region; Herniated | | | | Building | | Lumbar | | | | Floor [place], [place] | | Intervertebral Disc; | | | | [address] | | Unspecified Myalgia | | | | [phone] | | and Myositis | +--------+---------+ + [...] Progress Note Date: 08/05/2006 Belinda Molly Shefali [id number]. [id number] Start of Care: 06/23/2006 Referring Provider: [...] keep hydrated, went to the ED in [place] and was sent home by the M.[facility]ud[facility] without a ny treatment and advised by him to contact the pain clinic. Patient did not some relief with her last treatment, and continues her exercises consistent ly. She is walking daily at [facility] for 15-20 minutes, sitting X 60 minutes, [...] + + +--------+ + + | [place] MANUAL THER | Procedures | Routin | [...] + + +--------+ + + | [place] THERAPEUTIC | Procedures | Routin | Cervical [...] + + +--------+ + + | [place] THERAPEUTIC | Procedures | Routin | Cervical [...]
--- OUTSIDE RECORDS SUMMARY | ~2019-10-16 | XMS | Encounter Summary ---
Demographics + + + | Address | [address] | | | [place] [address] | + + + | Home Phone [...] Providers + +------+ + | Care Cage Supervisor Name | Role | Phone | [...] as of this encounter Progress Notes Interface, Store Group Manager In - 08/14/2005 2:05 AM PST [id number] GEOVANNI [facility] Clinic Date: 08/06/2005 Clinic: Rheumatology [...] of antiinflammatory diet that one of the compliance reviewer in [place] has written a book about, and I have had a patient do extremely well with it in terms of her IBS and fibromyalgia pain and fatigue. Belinda is interested in this and will pursue it. 3. I have given her a lot of articles that she can pass onto her physicians in [place]. She would like somebody there to learn [...] 4 months. Caitlin Rivera M.S., F.N.P. / [id number] / [id number] / [id number] / [id number] cc: Pedrito Gutierrez M.D. [address] [place] [address] Electronically signed by Caitlin Rivera 08-13-2005 03:37:47 PM documented i n this encounter Plan of Treatment Not on filedocumented as of this encounter Visit Diagnoses Not on filedocumented in this encounter"
--- OUTSIDE RECORDS SUMMARY | ~2019-10-16 | XMS | Encounter Summary ---
Demographics + + + | Address | [address] | | | [place] [address] | + + + | Home Phone [...] Team Providers + +------+ + | Care Fiber Artist Name | Role | Phone | [...] | | | Ave Mailcode: CH4S | [facility] | | | | | [facility] | [place], [place] | | | | | and Healing, | [address] | | | | | [place] [address] [facility] | [phone] | | | | | Floor [place], [place] | | | | | | [address] | | | | | | [phone] | | | +--------+ + + + [...]
--- OUTSIDE RECORDS SUMMARY | ~2019-10-16 | XMS | Encounter Summary ---
Demographics + + + | Address | [address] | | | [place] [address] | + + + | Home Phone [...] Providers + +------+ + | Care .Net Developer Name | Role | Phone | [...] [address] | | | | | [place], [place] | [place], [place] | | | | | [address] | [address] | | | | | [phone] | [phone] | | | | | | | [...]
--- OUTSIDE RECORDS SUMMARY | ~2019-10-16 | XMS | Encounter Summary ---
Demographics + + + | Address | [address] | | | [place] [address] | + + + | Home Phone [...] Providers + +------+ + | Care Master Certified Rv Technician Name | Role | Phone | [...] | | | | | | | [place], [place] | | | | | | | [address] | | | | | | | Phone: | | | | | | | [phone] | | | | | | | Fax: | | | | | | | [phone] | +--------+--------+ + + + + Encounter Details +--------+---------+ + + + | Date | Type | Department | Care Team | Description | +--------+---------+ + + + | 01/05/ | Office | Digestive Health | Eliezer Ruano, | Follow-Up | | 2007 | Visit | Center [address] | [address] [facility] | Examination | | | | Avjennifer Mailcode: CH4S | [address] | Following Surgery | | | | [facility] | [place], [place] | (Primary Dx) | | | | and Healing, | [address] | | | | | Building | [phone] | | | | | Floor [place], [place] | | | | | | [address] | | | | | | [phone] | | | +--------+---------+ + + + [...] and plan of care. ELIEZER RUANO MD [facility] [address] [place] [address] And [facility], [address] [place] [address] Tejas Trevino - 01/05 1:54 PM PDTS: Pt is here one week postop lysis of adhesions. She is doing well. She i s still having some pain. PE: Midline incision closed with reshma. [place] removed. There was a small opening of [...]
--- OUTSIDE RECORDS SUMMARY | ~2019-10-16 | XMS | Encounter Summary ---
Demographics + + + | Address | [address] | | | [place] [address] | + + + | Home Phone [...] Team Providers + +------+ + | Care Honey Producer Name | Role | Phone | [...] + + | 11/17/ | Office | [facility] | Alanis, | Bilateral leg edema | | 2018 | Visit | MEDICINE [address] | MD [place] | (Primary Dx); Venous | | | | [address] | [address] [facility] | insufficiency; | | | | [place] [address] | [place] [address] | Fatigue, unspecified | | | | [phone] | [phone] | type | | | | | [...] with myelopathy, lumbar region Stroke ([facility]) Syncope Tremor Type II or unspecified type [...] (See Comments) Confused and questionable for seizures Kbcxteiozg-Mwip-Vfharxge Cephalexin Hives Duloxetine Migraines and nausea Ketorolac Hives Morphine Swelling Ropinirole Hcl Hives Tramadol Hcl Nausea Only Vhzotqaqqn-Zsal-Htrjwdzw Hives and Rash Ciprofloxacin Hives and Rash [...] Note: Parts of this documentwere created using [employer]if[employer] speech recognition software. As a r esult, [...] | | | | | [place] [address] | | | | | | [phone] | | | | | | | | +--------+ + + + + | 12/20/ | Office | Audiology | Elisabet Munson MS | | | 2019 | Visit | | [facility] [address] | | | | | | [address] [place] | | | | | | [place] [address] | | | | | | [phone] | | | | | | | | +--------+ + + + + | 12/20/ | Office | Otolaryngology | Ulysses Genao MD | | | 2019 | Visit | | [address] | | | | | | [address] [place], | | | | | | [place] [address] | | | | | | [phone] | | | | | | | [...] [address] | [place] | [phone] | | [facility] | | [address] | | | - LABORATORY | | [...] ST. | [address] | [place] | [phone] | | [facility] | | [address] | | | - LABORATORY | | [...] + | [address] | [address] | [place], [place] | [phone] | | [facility] | | [address] | | | - LABORATORY | | [...] mL/min/1.73m2 | [facility] | | | [facility] | RATE,ESTIMATED | | MEDICAL | | | | mL/min/1.16o8Ejbf than | | CENTER - | | [...] [address] | [place] | [phone] | | [facility] | | [address] | | | - LABORATORY | | [...] | | | | | | [facility] | | | | | | MEDICAL [...] [address] | [place] | [phone] | | [facility] | | [address] | | | - LABORATORY | | [...] | | | | First dose on [facility] 10/15/17 at 1215 | | | [...]
--- OUTSIDE RECORDS SUMMARY | ~2019-10-16 | XMS | Encounter Summary ---
Demographics + + + | Address | [address] | | | [place] [address] | + + + | Home Phone [...] Team Providers + +------+ + | Care Vortex Operator Name | Role | Phone | [...] as of this encounter Progress Notes Interface, Vending Manager In - 02/19/2005 5:04 AM PDT [id number] [facility] Date: 01/17/2005 Clinic: General [...] with Dr. Dwaine Larson. She has a zyn-gwmh-dupue lesion at the distal aspect of her [...] closure. Devin German M.D. Dwaine Larson M.D. [facility] / [id number] / [id number] / [id number] / [id number] Electronically signed by Dwaine Larson 02-18-2005 09:15:31 AM documented i n this encounter Plan of Treatment Not on filedocumented as of this encounter Visit Diagnoses Not on filedocumented in this encounter
--- OUTSIDE RECORDS SUMMARY | ~2019-10-16 | XMS | Encounter Summary ---
Demographics + + + | Address | [address] | | | [place] [address] | + + + | Home Phone [...] Team Providers + +------+ + | Care Diesel Mechanic Helper Name | Role | Phone [...] as of this encounter Progress Notes Interface, Audio Production Engineer In - 01/21/2006 1:09 AM [facility] [place] [address] [address], [place] [address] or March 15, 2002 Pedrito Gutierrez M.D. [facility] [address] [place] [address] RE: BELINDA MEEHAN MR #: [id number] Dear Dr. Gutierrez: I had the pleasure [...] to set her up to see a animal nutrition consultant in Neurology or the [facility]romuscular [facility] [...] to contact me. Sincerely, Issac Meeks M.D. employee relations director Division of Endocrinology, Diabetes, and Clinical Horticulture Instructor of Metabolic Disorders Clinic [employer] / SHARIF [id number] / [id number] / [id number] / Tdocumented in this encounter Plan of Treatment Not on filedocumented as of this encounter Visit Diagnoses Not on filedocumented in this encounter"
--- OUTSIDE RECORDS SUMMARY | ~2019-10-16 | XMS | Encounter Summary ---
Demographics + + + | Address | [address] | | | [place] [address] | + + + | Home Phone [...] Providers + +------+ + | Care Computer Technology Teacher Name | Role | Phone [...] + + | 01/08/ | Telephone | [facility] | Alanis, | Results, Imaging | | 2017 | | MEDICINE [address] | MD Petrona | | | | | [facility] | [address] [place] [address] | | | | | [place] [address] | [place] [address] | | | | | [phone] | [phone] | | | | | | | [...] | | | | | [place] [address] | | | | | | [phone] | | | | | | | | +--------+ + + + + | 12/20/ | Office | Audiology | Elisabet Munson MS | | | 2019 | Visit | | [facility] [address] | | | | [address] [place] | | | | | | [place], [place] [address] | | | | | | [phone] | | | | | | | | +--------+ + + + + | 12/20/ | Office | Otolaryngology | Ulysses Genao MD | | | 2019 | Visit | | [address] | | | | | | [address] [place], | | | | | | [place] [address] | | | | | | [phone] | | | | | | | | +--------+ + + + + documented as of this encounter Visit Diagnoses Not on filedocumented in this encounter"
--- OUTSIDE RECORDS SUMMARY | ~2019-10-16 | XMS | Encounter Summary ---
Demographics + + + | Address | [address] | | | [place] [address] | + + + | Home Phone [...] + | 12/10/ | Office | [facility] | Alanis, | Elevated liver | | 2018 | Visit | MEDICINE [address] | MD Petrona | enzymes (Primary | | | | [address] [place] | [address] [facility] | Dx); Limb cramps; | | | | [place] [address] | [place] [address] | Physical | | | | [phone] | [phone] | deconditioning; | | | | | [...] Refill Abdominal Pain Spasms legs and hips [facility] Belinda Meehan is a 57 y.o. [...] is interested in doing physical therapy in [place], pool therapy has helped in the pas [...] (See Comments) Confused and questionable for seizures Mfcuvfegdi-Jpfu-Jcgomeqa Cephalexin Hives Duloxetine Migraines and nausea Ketorolac Hives Morphine Swelling Ropinirole Hcl Hives Tramadol Hcl Nausea Only Ykvpubcpjt-Nidz-Ewgyzprk Hives and Rash Ciprofloxacin Hives and Rash [...] Note: Parts of this documentwere created using [employer] speech recognition software. As a r esult, [...] | | | | [address] [facility] | | | | | | [place] [address] | | | | | | [phone] | | | | | | | | +--------+ + + + + | 12/20/ | Office | Audiology | Elisabet Munson MS | | | 2019 | Visit | | [facility] [address] | | | | | [address] [place] | | | | | | [place] [address] | | | | | | [phone] | | | | | | | | +--------+ + + + + | 12/20/ | Office | Otolaryngology | Ulysses Genao MD | | | 2019 | Visit | | [address] | | | | | | [address] [place], | | | | | | [place] [address] | | | | | | [phone] | | | | | | | [...] [address] | [place] | [phone] | | [facility] | | [address] | | | - LABORATORY | | [...] + | [address] | [address] | [place] | [phone] | | [facility] | | [address] | | | - LABORATORY | | [...] test | | | | | | ([id number]). | | | | + + + + + + + + | Specimen | + + | Blood | + + + + + | Narrative | Performed At | + + + | Performed at: 01 - [address] [address] [address] [address] [address], | REFERENCE LAB | | [place], [place] [id number] Slubber Operator: Bandar Gan MD, Phone: | [facility] | | [phone] | | + + + + + + + + | Performing | Address | City/State/Zipcode | Phone Number | | Organization | | | | + + + + + | REFERENCE LAB | [address] | [place], [place] | [phone] | | [facility] | [place] | [address] | | + + + + + [...] | | | First dose on [facility] 10/15/17 at 1215 | | | [...]
--- OUTSIDE RECORDS SUMMARY | ~2019-10-16 | XMS | Encounter Summary ---
Demographics + + + | Address | [address] | | | [place] [address] | + + + | Home Phone [...] Providers + +------+ + | Care Impregnator Electrolytic Capacitors Name | Role | Phone | + [...] | | | | Clinical Nutrition | [place], [place] | | | | | [address] | [address] | | | | | Loop Mailcode: OPC5 | [phone] | | | | | Outpatient Clinic | | | | | | [facility], | | | | | | [place] [address] | | | | | | [phone] | | | +--------+ + + + [...]
--- OUTSIDE RECORDS SUMMARY | ~2019-10-16 | XMS | Encounter Summary ---
Demographics + + + | Address | [address] | | | [place] [address] | + + + | Home Phone [...] Team Providers + +------+ + | Care Butane Compressor Operator Name | Role | Phone | + +------+ + | Petrona Thapa | PCP | | | MD | | | + +------+ + Encounter Details +--------+ + + + + | Date | Type | Department | Care Team | Description | +--------+ + + + + | 12/18/ | Hospital | [facility] | Luther Brito MD | Abdominal pain, | | 2018 | Encounter | [facility] | [address] | unspecified | | | | [address] | [place], [place] | abdominal location; | | | | [place], [place] | [address] | Gastroesophageal | | | | [address] | [phone] | reflux disease, | | | | [phone] | | esophagitis presence | | | [...] You can't be awakened Date Last Reviewed: 04/01/201619991842-4300 [employer]. [address] [place] [address], [place] [address]. All righ ts reserved. This information is [...] | | | | | [place] [address] | | | | | | [phone] | | | | | | | | +--------+ + + + + | 12/20/ | Office | Audiology | Elisabet Munson MS | | | 2019 | Visit | | [facility] [address] | | | | | [address] [place] | | | | | | [place] [address] | | | | | | [phone] | | | | | | | | +--------+ + + + + | 12/20/ | Office | Otolaryngology | Ulysses Genao MD | | | 2019 | Visit | | [address] | | | | | | [address] [place], | | | | | | [place] [address] | | | | | | [phone] | | | | | | | [...] 12/18/2017 | PROVATION | | 10:49 AMMRN: [id number] #: [id number] of : | | | 9Admit Type: AmbulatoryAge: 57Room: [facility] 01Gender: FemaleNote | | | Status: FinalizedAttending MD: Luther Brito [facility]: | | | Upper GI endoscopyIndications: [...] the anesthesiologist and the | | | technical maintenance technician in the pre-procedure area in [...] | appearing mucosa. This was traversed. The tvsvm-ko-bipplfx limb | | | was characterized by healthy appearing mucosa. The | | | jejunojejunal anastomosis was characterized by healthy | | | appearing mucosa. The yzguzftg-hn-ftapusu limb was not examined | | | [...] AMScope Out: | | | 11:08:34 AM [facility] [address] | | | [place] [address] | | | - Return to GI [...] |Scope Out: 11:08:34 AM | | | [facility], [facility] [place], [place] | | | [address] | | + + -+ + +---------+ [...] 12/18/2017 | PROVATION | | 10:43 AMMRN: [id number] #: [id number] of : | | | 9Admit Type: AmbulatoryAge: 57Room: [facility] 01Gender: FemaleNote | | | Status: FinalizedAttending MD: Luther Brito , [facility]cedure: | | | ColonoscopyIndications: Generalized abdominal pain, [...] the anesthesiologist and the | | | technical maintenance technician in the pre-procedure area in [...] Scope In: 11:12:28 AMScope Out: 11:56:57 AM [place] | | | [facility], [address] [place] [address] | | | [phone] | | | - Await pathology results. [...] |Scope Out: 11:56:57 AM | | | [facility], [address] [place] [address] , [place], [place] | | | [address] | | + + -+ + +---------+ [...] for specific diagnostic abnormality. | | | JVR:[facility]:C2NR GROSS DESCRIPTION: Received in five parts. | [...] | | slide preparation were performed by [employer], [address] [place] [address] | | | [facility], [place] [address] (Acoustic Sensor Operator: Stephen Jacobson | | | Joanna CLIA#: [id number]). Professional interpretation was performed | | | by [employer], [facility], [address] | | | [place] [address] (Acoustic Sensor Operator: Stephen | | Anika Jacobson M.D.; CLIA#: [id number]). Diagnostician: Stephen Khan | | | Kavon [...]
--- OUTSIDE RECORDS SUMMARY | ~2019-10-16 | XMS | Encounter Summary ---
Demographics + + + | Address | [address] | | | [place] [address] | + + + | Home Phone [...] Providers + +------+ + | Care Supervisor Paint Name | Role | Phone | + [...] | | | [facility] | [place], [place] | | | | | [address] | [address] | | | | | [address] | [phone] | | | | | Physician's | | | | | | Pavilion, 1st floor | | | | | | [place], [place] | | | | | | [address] | | | | | | [phone] | | | +--------+--------+ + + + [...]
--- OUTSIDE RECORDS SUMMARY | ~2019-10-16 | XMS | Encounter Summary ---
Demographics + + + | Address | [address] | | | [place] [address] | + + + | Home Phone [...] Providers + +------+ + | Care Field Artillery Targeting Technician Name | Role | Phone | [...] | | | | [facility] | [place], [place] | | | | | [address] | [address] | | | | | [place], [place] | [phone] | | | | | [address] | | | | | | [phone] | | | +--------+ + + + [...]
--- OUTSIDE RECORDS SUMMARY | ~2019-10-16 | XMS | Encounter Summary ---
Demographics + + + | Address | [address] | | | [place] [address] | + + + | Home Phone [...] + +------+ + | Care Director Of Speech Pathology Name | Role | Phone | + +------+ + | Petrona Thapa | PCP | | | MD | | | + +------+ + Reason for Visit + + + | Reason | Comments | + + + | Radiology | | | Appointment | | + + + Encounter Details +--------+ + + + + | Date | Type | Department | Care Team | Description | +--------+ + + + + | 12/28/ | Telephone | [facility] | Alanis, | Radiology | | 2018 | | MEDICINE [address] [place] [address] | MD Petrona | Appointment | | | | [facility] | [address] [place] [address] | | | | | [place] [address] | [place] [address] | | | | | [phone] | [phone] | | | | | | | [...] 11/14/ | Office | Internal Medicine | [place], | | | 2019 | Visit | | MD Petrona | | | | | | [address] | | | | | | [place] [address] | | | | | | [phone] | | | | | | | | +--------+ + + + + | 12/20/ | Office | Audiology | Elisabet Munson MS | | 2019 | Visit | | [facility] [address] | | | | [address] [place] | | | | | | [place] [address] | | | | | | [phone] | | | | | | | | +--------+ + + + + | 12/20/ | Office | Otolaryngology | Ulysses Genao MD | | | 2020 | Visit | | [address] | | | | | | [address] [place], | | | | | | [place] [address] | | | | | | [phone] | | | | | | | | +--------+ + + + + documented as of this encounter Visit Diagnoses Not on filedocumented in this encounter"
--- OUTSIDE RECORDS SUMMARY | ~2019-10-16 | XMS | Encounter Summary ---
Demographics + + + | Address | [address] | | | [place] [address] | + + + | Home Phone [...] Providers + +------+ + | Care Head Grinder Name | Role | Phone | [...] | Transcriptions | + + | Interface, Line Pilot In - 06/05/2005 5:20 AM PST Date: | | 11/22/2003Attending Surgeon: Chris Padgett M.D.Scowman(s): | | Ramon Valentine M.D.Preoperative Diagnosis:Morbid obesity.Postoperative [...] our proximal transected portion down and did lrztn-mk-mtnt stapled jejunojejunostomy | | using a single [...] to this antecolic and antegastric andperformed a vgfs-yn-lytv gastrojejunostomy | | after placing a posteriorinterrupted [...] Valentine | | Syed Padgett M.D.MOOKIE / [id number] / [id number] / [id number] / [id number]: 11/22/2003T: | | 11/22/2003 | |cm to [...] transected portion down and did a | |iabs-bf-cwuh stapled jejunojejunostomy using a single firing blue [...] antecolic and antegastric and | |performed a jouk-je-vsix gastrojejunostomy after placing a posterior | |interrupted [...] | | | |MOOKIE / SHARIF | |[id number] / [id number] / [id number] / [id number] | | | | | + + documented in this encounter Visit Diagnoses Not on filedocumented in this encounter"
--- OUTSIDE RECORDS SUMMARY | ~2019-10-16 | XMS | Encounter Summary ---
Demographics + + + | Address | [address] | | | [place] [address] | + + + | Home Phone [...] Team Providers + +------+ + | Care Scanning Coordinator Name | Role | Phone | + +------+ + | Petrona Thapa | PCP | | | MD | | | + +------+ + Encounter Details +--------+ + + + + | Date | Type | Department | Care Team | Description | +--------+ + + + + | 10/04/ | Documentati | [facility] | Alanis, | | | 2019 | on | MEDICINE [address] | MD Petrona | | | | | [address] [place] | [address] [facility] | | | | | [place] [address] | [place] [address] | | | | | [phone] | | | | | | | [...] | | | | | [place] [address] | | | | | | [phone] | | | | | | | | +--------+ + + + + | 12/20/ | Office | Audiology | Elisabet Munson MS | | | 2019 | Visit | | [facility] [address] | | | | | | [place] [address] [place] | | | | | | [place] [address] | | | | | | [phone] | | | | | | | | +--------+ + + + + | 12/20/ | Office | Otolaryngology | Ulysses Genao MD | | | 2020 | Visit | | [address] | | | | | | [address] [place], | | | | | | [place] [address] | | | | | | [phone] | | | | | | | | +--------+ + + + + documented as of this encounter Visit Diagnoses Not on filedocumented in this encounter"
--- OUTSIDE RECORDS SUMMARY | ~2019-10-16 | XMS | Encounter Summary ---
Demographics + + + | Address | [address] | | | [place] [address] | + + + | Home Phone [...] Providers + +------+ + | Care Linux Consultant Name | Role | Phone | [...] + + | 06/09/ | Telephone | [facility] | Alanis, | Safety issue | | 2019 | | MEDICINE [address] [place] [address] | MD Petrona | | | | | [facility] | [address] [place] [address] | | | | | [place] [address] | [place] [address] | | | | | [phone] | [phone] | | | | | | | [...] | | | | | [place] [address] | | | | | | [phone] | | | | | | | | +--------+ + + + + | 12/20/ | Office | Audiology | Elisabet Munson MS | | 2019 | Visit | | [facility] [address] | | | | [address] [place] | | | | | | [place] [address] | | | | | | [phone] | | | | | | | | +--------+ + + + + | 12/20/ | Office | Otolaryngology | Ulysses Genao MD | | | 2020 | Visit | | [address] | | | | | | [address] [place], | | | | | | [place] [address] | | | | | | [phone] | | | | | | | | +--------+ + + + + documented as of this encounter Visit Diagnoses Not on filedocumented in this encounter"
--- OUTSIDE RECORDS SUMMARY | ~2019-10-16 | XMS | Encounter Summary ---
Demographics + + + | Address | [address] | | | [place] [address] | + + + | Home Phone [...] Team Providers + +------+ + | Care Shell Plater Name | Role | Phone | [...] + + | 03/28/ | Documentati | [facility] | Rosi Antonio, | Erroneous Encounter | | 2012 | on | Pain Center at | ANP | - Disregard | | | | [facility] | | | | | | [address] | | | | | | Mailcode: CH15P | | | | | | [facility] | | | | | | and [place], | | | | | | [facility] | | | | | | [place], [place] | | | | | | [address] | | | | | | [phone] | | | +--------+ + + + [...]
--- OUTSIDE RECORDS SUMMARY | ~2019-10-16 | XMS | Encounter Summary ---
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 Diagnosis: Justice I: 1. (296.32) Major depressive disorder, recurrent, moderate. 2. (309.24) Adjustment disorder with anxiety. 3. 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 Justice II: Deferred Justice III: abdominal pain, migraine headache, low back pain. Justice IV: low finances Justice V: GAF 55-60 Plan: Return in 2 weeks. Check mood, pacing, relaxation, activity, distraction. Continue cognit gerda/behavioral therapy. Set goals for summer activity. Total time spent with patient was approximately 45 minutes. LUKASZ CHARLES PHD [facility] [address] [place] [address] And [facility], [address] [place] [address] documented in this encount er Plan of Treatment + + +--------+ + + | Name | Type | Priori | Associated Diagnoses | Order Schedule | | | | ty | | | + + +--------+ + + | [facility]YCHOTHER[facility], | Procedures | Routin | Major [...] depressive disorder, recurrent episode, moderate ([facility]) Major depressive | | disorder, [...]
--- OUTSIDE RECORDS SUMMARY | ~2019-10-16 | XMS | Encounter Summary ---
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
--- OUTSIDE RECORDS SUMMARY | ~2019-10-16 | XMS | Encounter Summary ---
Demographics + + + | Address | [address] | | | [place] [address] | + + + | Home Phone [...] Team Providers + +------+ + | Care Bibliographic Services Specialist Name | Role | Phone | [...] | | | Mailcode: PV240 | [place] [address] | | | | | [facility] | [phone] | | | | | [place], [place] | | | | | | [address] | | | | | | [phone] | | | +--------+ + + + [...]
--- OUTSIDE RECORDS SUMMARY | ~2019-10-16 | XMS | Encounter Summary ---
Demographics + + + | Address | [address] | | | [place] [address] | + + + | Home Phone [...] Team Providers + +------+ + | Care Foil Cutter Name | Role | Phone | [...] as of this encounter Progress Notes Interface, Vacuum Cleaner Repair Person In - 08/30/2005 2:07 AM PST [id number] [facility] Date: 07/24/2005 Clinic: Surgery [...] for surgery. Chris Padgett M.D. ROSA / [id number] / [id number] / [id number] / [id number] Electronically signed by Chris Padgett 08-29-2005 03:28:14 PM documented i n this encounter Plan of Treatment Not on filedocumented as of this encounter Visit Diagnoses Not on filedocumented in this encounter"
--- OUTSIDE RECORDS SUMMARY | ~2019-10-16 | XMS | Encounter Summary ---
Demographics + + + | Address | [address] | | | [place] [address] | + + + | Home Phone [...] Providers + +------+ + | Care Research Nurse Name | Role | Phone | [...] 2016 | | NEUR[facility]Y [place] | [address] | | | | | [address] [facility], | [address]ESSICA [address] | | | | | [address] [place] | [place] | | | | | [place] [address] | [address] | | | | | [phone] | | | +--------+ + + + [...] | | | | | [place] [address] | | | | | | [phone] | | | | | | | | +--------+ + + + + | 12/20/ | Office | Audiology | Elisabet Munson MS | | | 2019 | Visit | | [facility] [address] | | | | | | [address] [place] | | | | | | [place] [id number] | | | | | | [phone] | | | | | | | | +--------+ + + + + | 12/20/ | Office | Otolaryngology | Ulysses Genao MD | | | 2020 | Visit | | [address] | | | | | | [address] [place], | | | | | | [place] [id number] | | | | | | [phone] | | | | | | | | +--------+ + + + + documented as of this encounter Visit Diagnoses Not on filedocumented in this encounter"
--- OUTSIDE RECORDS SUMMARY | ~2019-10-16 | XMS | Encounter Summary ---
Demographics + + + | Address | [address] | | | [place] [address] | + + + | Home Phone [...] Providers + +------+ + | Care Associate Financial Planner Name | Role | Phone | + +------+ + | Sulaiman Carrera MD | PCP | | + +------+ + Encounter Details +--------+ + + + + | Date | Type | Department | Care Team | Description | +--------+ + + + + | 01/02/ | Ancillary | Registration [address] | Beto Meeks MD | | | 2004 | Registratio | [facility] | [address] | | | | n | [place] Mailcode: RPB07 | [place], [place] | | | | | [place], [place] | [address] | | | | | [address] | [phone] | | | | | [phone] | | | +--------+ + + + [...] DEPARTMENT OF | [address] | [place] [address] | | | PATHOLOGY | [address] | | | + + + + + | [facility] DEPARTMENT OF | [address] | [place] [address] | | | PATHOLOGY | [address] [...] | + + + + + | [facility] DEPARTMENT OF | [address] [facility] | [place] [address] | | | PATHOLOGY | [address] | | | + + + + + | [place] DEPARTMENT OF | [address] [facility] | [place] [address] | | | PATHOLOGY | [address] [...] | + + + + + | [facility] | [address] | [place] [address] | | | LABORATORY | | | | + + + + + documented in this encounter Visit Diagnoses Not on filedocumented in this encounter"
--- OUTSIDE RECORDS SUMMARY | ~2019-10-16 | XMS | Encounter Summary ---
Demographics + + + | Address | [address] | | | [place] [address] | + + + | Home Phone [...] Providers + +------+ + | Care Advertising Intern Name | Role | Phone | [...] | | | [facility] | [place], [place] | | | | | [address] | [address] | | | | | [address] | [phone] | | | | | Physician's | | | | | | Pavilion, rust floor | | | | | | [place], [place] | | | | | | [address] | | | | | | [phone] | | | +--------+ + + + [...] [facility] | [facility]. | | | | + + + + + + + + | Specimen | + + | | + + + + + + + | Performing | Address | City/State/Zipcode | Phone Number | | Organization | | | | + + + + + | [facility] | [address] | [place] [address] | | | LABORATORY | | | [...] | pg/mL | | | | | [facility] | | | | | | Laboratory. | | | | + + + + + + + + | Specimen | + + | | + + + + + + + | Performing | Address | City/State/Zipcode | Phone Number | | Organization | | | | + + + + + | [facility] | [address] | [place] [address] | | | LABORATORY | | | [...] | [facility] | [address] | [place] [address] | | | PATHOLOGY | [address] | | | + + + + + | [facility] DEPARTMENT OF | [address] | [place] [address] | | | PATHOLOGY | [address] | | | + + + + + documented in this encounter Visit Diagnoses Not on filedocumented in this encounter"
--- OUTSIDE RECORDS SUMMARY | ~2019-10-16 | XMS | Encounter Summary ---
Demographics + + + | Address | [address] | | | [place] [address] | + + + | Home Phone [...] Providers + +------+ + | Care Licensed Occupational Therapist Name | Role | Phone | [...] + + | 02/04/ | Telephone | [facility] | Emmy-Kamlesh, | Other (Kidney pain ) | | 2017 | | MEDICINE [address] | MD Petrona | | | | | [facility] | [address] [place] [address] | | | | | [place] [address] | [place] [address] | | | | | [phone] | [phone] | | | | | | | [...] | | | | | [place] [address] | | | | | | [phone] | | | | | | | | +--------+ + + + + | 12/20/ | Office | Audiology | Dariokeyla CeasarMS rafa | | | 2019 | Visit | | [facility] [address] | | | [address] [place] | | | | | | [place], [place] [address] | | | | | | [phone] | | | | | | | | +--------+ + + + + | 12/20/ | Office | Otolaryngology | Ulysses Genao MD | | | 2019 | Visit | | [address] | | | | | | [address] [place], | | | | | | [place] [address] | | | | | | [phone] | | | | | | | | +--------+ + + + + documented as of this encounter Visit Diagnoses Not on filedocumented in this encounter"
--- OUTSIDE RECORDS SUMMARY | ~2019-10-16 | XMS | Encounter Summary ---
Demographics + + + | Address | [address] | | | [place] [address] | + + + | Home Phone [...] + +------+ + | Care Medical Office Representative Name | Role | Phone | [...] + | 05/05/ | Telephone | [facility] | Alanis, | Incontinence | | 2018 | | MEDICINE [address] [place] [address] | MD Petrona | Supplies | | | | [facility] | [address] [place] [address] | | | | | [place] [address] | [place] [address] | | | | | [phone] | [phone] | | | | | | | [...] | | | [facility] [address]QU[address] | | | | | | [place] [address] | | | | | | [phone] | | | | | | | | +--------+ + + + + | 12/20/ | Office | Audiology | Elisabet Munson MS | | | 2019 | Visit | | [facility] [address] | | | | | [address] [place] | | | | | | [place] [address] | | | | | | [phone] | | | | | | | | +--------+ + + + + | 12/20/ | Office | Otolaryngology | Ulysses Genao MD | | | 2019 | Visit | | [address] | | | | | | [address] [place], | | | | | | [place] [address] | | | | | | [phone] | | | | | | | [...]
--- OUTSIDE RECORDS SUMMARY | ~2019-10-16 | XMS | Encounter Summary ---
Demographics + + + | Address | [address] | | | [place] [address] | + + + | Home Phone [...] Team Providers + +------+ + | Care Wellness Program Manager Name | Role | Phone [...] + | 10/11/ | Refill | [facility] | Alanis, | Medication Refill | | 2019 | | MEDICINE [address] | MD Petrona | | | | | [facility] | [address] [place] [address] | | | | | [place] [address] | [place] [address] | | | | | [phone] | [phone] | | | | | | | [...] | | | | | [address] [place] | | | | | | [place] [address] | | | | | | [phone] | | | | | | | | +--------+ + + + + | 12/20/ | Office | Audiology | DarioElisabet ramires MS | | | 2019 | Visit | | [facility] [address] | | | | | [address] [place] | | | | | | [place], [place] [address] | | | | | | [phone] | | | | | | | | +--------+ + + + + | 12/20/ | Office | Otolaryngology | Ulysses Genao MD | | | 2019 | Visit | | [address] | | | | | | [address] [place], | | | | | | [place] [address] | | | | | | [phone] | | | | | | | | +--------+ + + + + documented as of this encounter Visit Diagnoses Not on filedocumented in this encounter"
--- OUTSIDE RECORDS SUMMARY | ~2019-10-16 | XMS | Encounter Summary ---
Demographics + + + | Address | [address] | | | [place] [address] | + + + | Home Phone [...] Providers + +------+ + | Care Tax Audit Manager Name | Role | Phone | [...] + + | 06/02/ | Telephone | [facility] | lAanis, | Results | | 2018 | | MEDICINE [address] | MD Petrona | | | | | [facility] | [address] [place] [address] | | | | | [place] [address] | [place] [address] | | | | | [phone] | [phone] | | | | | | | [...] | | | | | [place] [address] | | | | | | [phone] | | | | | | | | +--------+ + + + + | 12/20/ | Office | Audiology | Elisabet Munson MS | | 2019 | Visit | | [facility] [address] | | | | | [address] [place] | | | | | | [place] [address] | | | | | | [phone] | | | | | | | | +--------+ + + + + | 12/20/ | Office | Otolaryngology | Ulysses Genao MD | | | 2020 | Visit | | [address] | | | | | | [address] [place], | | | | | | [place] [address] | | | | | | [phone] | | | | | | | | +--------+ + + + + documented as of this encounter Visit Diagnoses Not on filedocumented in this encounter"
--- OUTSIDE RECORDS SUMMARY | ~2019-10-16 | XMS | Encounter Summary ---
Demographics + + + | Address | [address] | | | [place] [address] | + + + | Home Phone [...] as of this encounter Progress Notes Interface, Telephoner In - 01/12/2005 8:09 AM PDTClinic Date: [...] months. Chris Padgett M.D. ROSA / SHARIF [id number] / [id number] / [id number] / Tdocumented in this encounter Plan of Treatment Not on filedocumented as of this encounter Visit Diagnoses Not on filedocumented in this encounter"
--- OUTSIDE RECORDS SUMMARY | ~2019-10-16 | XMS | Encounter Summary ---
Demographics + + + | Address | [address] | | | [place] [address] | + + + | Home Phone [...] Providers + +------+ + | Care Route Driver Salesperson Name | Role | Phone | [...] | | | | | Encounter | [place], [place] | [place] | | | | | for | [address] | [address] | | | | | long-term | | Phone: | | | | | (current) | | [phone] | | | | | use of other | | Fax: | | | | | medications | | [phone] | | | | | LBP (low [...] 06/23/ | Office | [facility] at [facility] | Lukasz Charles, | Major depressive | | 2013 | Visit | [address] | PhD [address] | disorder, recurrent | | | | Mailcode: CH15P | [place], [place] | episode, moderate | | | | [place] for [facility] | [address] | ([facility]) (Primary Dx); | | | | and Healing, | [phone] | LBP (low back pain); | | | | | | Adjustment disorder | | | | Floor [place], [place] | | with anxiety | | | | [address] | | | | | | [phone] | | | +--------+---------+ + + + [...] an appropriate candidate for a stimulator. Diagnosis: [place] I: 1. (296.32) Major depressive disorder, recurrent, moderate. 2. (309.24) Adjustment disorder with anxiety. [place] II: Deferred [place] III: abdominal pain, migraine headache, low back pain, fibromyalgia. [place] IV: low finances [place] V: GAF 55-60 Plan: return in 1 month. Check mood, pain, activity, stress management. Ask about spinal cord stimulator, any changes at home. Continue cognitive/behavioral therapy. Total time spent with patient was approximately 45 minutes. LUKASZ CHARLES PHD [facility] [address] [place] [address], [address] [place] [address] documented in this en counter Plan of [...]
--- OUTSIDE RECORDS SUMMARY | ~2019-10-16 | XMS | Encounter Summary ---
Demographics + + + | Address | [address] | | | [place] [address] | + + + | Home Phone [...] Providers + +------+ + | Care Inspector Welded Parts Name | Role | Phone | [...] + | 02/03/ | Refill | [facility] | Alanis, | Medication Refill | | 2017 | | MEDICINE [address] [place] [address] | MD Petrona | | | | | [facility] | [address] [place] [address] | | | | | [place] [address] | [place] [address] | | | | | [phone] | [phone] | | | | | | | [...] | | | | | [place] [address] | | | | | | [phone] | | | | | | | | +--------+ + + + + | 12/20/ | Office | Audiology | DarioElisabet ramires MS | | | 2019 | Visit | | [facility] [address] | | | [address] [place] | | | | | | [place], [place] [address] | | | | | | [phone] | | | | | | | | +--------+ + + + + | 12/20/ | Office | Otolaryngology | Ulysses Genao MD | | | 2019 | Visit | | [address] | | | | | | [address] [place], | | | | | | [place] [id number] | | | | | | [phone] | | | | | | | | +--------+ + + + + documented as of this encounter Visit Diagnoses Not on filedocumented in this encounter"
--- OUTSIDE RECORDS SUMMARY | ~2019-10-16 | XMS | Encounter Summary ---
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
--- OUTSIDE RECORDS SUMMARY | ~2019-10-16 | XMS | Encounter Summary ---
Demographics + + + | Address | [address] | | | [place] [address] | + + + | Home Phone [...] Providers + +------+ + | Care Assessment Rn Name | Role | Phone | [...] | | | [facility] | [place], [place] | | | | | [address] | [address] | | | | | [address] | [phone] | | | | | Physician's | | | | | | Pavilion, 1st floor | | | | | | [place], [place] | | | | | | [address] | | | | | | [phone] | | | +--------+ + + + [...]
--- OUTSIDE RECORDS SUMMARY | ~2019-10-16 | XMS | Encounter Summary ---
Demographics + + + | Address | [address] | | | [place] [address] | + + + | Home Phone [...] Team Providers + +------+ + | Care Punch Machine Operator Name | Role | [...] 11/24/ | Office | [facility] at [facility] | Lukasz Charles, | Major Depressive | | 2006 | Visit | [address] | PhD [address] | Disorder, Recurrent | | | | Mailcode: 15 | [place], [place] | Episode, Moderate | | | | [facility] | [address] | ([facility]); Spondylosis | | | | and Healing, | [phone] | with Myelopathy, | | | | Building | | Lumbar Region; Left | | | | Floor [place], [place] | | Knee Pain; | | | | [address] | | Adjustment Disorder | | | | [phone] | | with Anxiety; Other | | [...] some pl ans for more activity. Diagnosis: [place] I: 1. (296.32) Major depressive disorder, recurrent, moderate. 2. (309.24) Adjustment disorder with anxiety. 3. 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 [place] II: Deferred [place] III: abdominal pain, migraine headache, low back pain. [place] IV: low finances [place] V: GAF 55-60 Plan: Return in 2 weeks. Check mood, pacing, relaxation, activity, distraction. Continue cognit gerda/behavioral therapy. Set goals for summer activity. Total time spent with patient was approximately 45 minutes. LUKASZ CHARLES PHD [facility] [address] [place] [address] And [facility], [address] [place] [address] documented in this encount er Plan of [...] | Major depressive disorder, recurrent episode, moderate ([facility]) Major depressive | | disorder, recurrent episode, moderate | + + | Spondylosis with myelopathy, lumbar region | + + | Left Knee Pain Pain in joint, lower leg | + + | Adjustment disorder with anxiety | + + | Other pain disorders related to psychological factors | + + documented in this encounter"
--- OUTSIDE RECORDS SUMMARY | ~2019-10-16 | XMS | Encounter Summary ---
[...] Team Providers + +------+ + | Care Secure Software Assessor Name | Role | Phone | [...] | | | | | | | [place], [place] | | | | | | | [address] | | | | | | | Phone: | | | | | | | [phone] | | | | | | | Fax: | | | | | | | [phone] | +--------+--------+ + + + + Encounter [...] | | | [facility] | [place], [place] | Metabolic syndrome | | | | [address] | [address] | X 250.80; Essential | | | | [address] | [phone] | hypertension 401.9; | | | | Physician's Pavilion | | Fibromyalgia | | | | Physician's | | syndrome 729.1 | | | | Pavilion [place], | | | | | | [place] [address] | | | | | | [phone] | | | +--------+---------+ + + + [...] by oral route once daily at bedti oh as needed Oxycodone HCl (OXYCONTIN) 40 mg [...]
--- OUTSIDE RECORDS SUMMARY | ~2019-10-16 | XMS | Encounter Summary ---
Demographics + + + | Address | [address] | | | [place] [address] | + + + | Home Phone [...] Providers + +------+ + | Care Box Order Person Name | Role | Phone | [...] + | 12/14/ | Refill | [facility] | Alanis, | Medication Refill | | 2018 | | MEDICINE [address] [place] [address] | MD Petrona | | | | | [facility] | [address] [place] [address] | | | | | [place] [address] | [place] [address] | | | | | [phone] | [phone] | | | | | | | [...] | | | | | [place] [address] | | | | | | [phone] | | | | | | | | +--------+ + + + + | 12/20/ | Office | Audiology | DarioElisabet ramires MS | | | 2019 | Visit | | [facility] [address] [place] | | | | | | [place], [place] [address] | | | | | | [phone] | | | | | | | | +--------+ + + + + | 12/20/ | Office | Otolaryngology | Ulysses Genao MD | | | 2019 | Visit | | [address] | | | | | | [address] [place], | | | | | | [place] [address] | | | | | | [phone] | | | | | | | | +--------+ + + + + documented as of this encounter Visit Diagnoses Not on filedocumented in this encounter"
--- OUTSIDE RECORDS SUMMARY | ~2019-10-16 | XMS | Encounter Summary ---
Demographics + + + | Address | [address] | | | [place] [address] | + + + | Home Phone [...] Team Providers + +------+ + | Care Barber Tool Sharpener Name | Role | Phone | + [...] | | | | | | | [place], [place] | | | | | | | [address] | | | | | | | Phone: | | | | | | | [phone] | | | | | | | Fax: | | | | | | | [phone] | +--------+--------+ + + + + Encounter Details +--------+---------+ + + + | Date | Type | Department | Care Team | Description | +--------+---------+ + + + | 01/05/ | Office | Digestive Health | Eliezer Ruano, | Follow-Up | | 2007 | Visit | Center [address] | [address] [facility] | Examination | | | | Avjennifer Mailcode: CH4S | [address] | Following Surgery | | | | [facility] | [place], [place] | (Primary Dx) | | | | and Healing, | [address] | | | | | Building | [phone] | | | | | Floor [place], [place] | | | | | | [address] | | | | | | [phone] | | | +--------+---------+ + + + [...] plan of care. ELIEZER RUANO MD [facility] [address] [place] [address] And [facility], [address] [place] [address] Tejas Trevino - 01/05 1:54 PM PDTS: Pt is here one week postop lysis of adhesions. She is doing well. She i s still having some pain. PE: Midline incision closed with reshma. Eldora removed. There was a small opening of [...]
--- OUTSIDE RECORDS SUMMARY | ~2019-10-16 | XMS | Encounter Summary ---
Demographics + + + | Address | [address] | | | [place] [address] | + + + | Home Phone [...] Providers + +------+ + | Care Supervisor Coal Handling Name | Role | Phone | + [...]
--- OUTSIDE RECORDS SUMMARY | ~2019-10-16 | XMS | Encounter Summary ---
Demographics + + + | Address | [address] | | | [place] [address] | + + + | Home Phone [...] Providers + +------+ + | Care Systems Analyst Engineer Name | Role | Phone | [...] Description | +--------+--------+ + + + | 06/14/ | Refill | [facility] | Alanis, | Medication Refill | | 2018 | | MEDICINE [address] [place] [address] | MD Petrona | | | | | [facility] | [address] [place] [address] | | | | | [place] [address] | [place] [address] | | | | | [phone] | [phone] | | | | | | | [...] | | | | | [place] [address] | | | | | | [phone] | | | | | | | | +--------+ + + + + | 12/20/ | Office | Audiology | DarioElisabet ramires MS | | | 2019 | Visit | | [facility] [address] | | [address] [place] | | | | | | [place], [place] [address] | | | | | | [phone] | | | | | | | | +--------+ + + + + | 12/20/ | Office | Otolaryngology | Ulysses Genao MD | | | 2019 | Visit | | [address] | | | | | | [address] [place], | | | | | | [place] [address] | | | | | | [phone] | | | | | | | | +--------+ + + + + documented as of this encounter Visit Diagnoses Not on filedocumented in this encounter"
--- OUTSIDE RECORDS SUMMARY | ~2019-10-16 | XMS | Encounter Summary ---
Demographics + + + | Address | [address] | | | [place] [address] | + + + | Home Phone [...] + +------+ + | Care Director Of Income Tax Name | Role | Phone | [...] + + | 11/09/ | Telephone | [facility] | Alanis, | Medical Problem | | 2018 | | MEDICINE [address] [place] [address] | MD Petrona | | | | | [facility] | [address] [place] [address] | | | | | [place] [address] | [place] [address] | | | | | [phone] | [phone] | | | | | | | [...] | | | | | [place] [address] | | | | | | [phone] | | | | | | | | +--------+ + + + + | 12/20/ | Office | Audiology | Ceasar MunsonahMS | | | 2019 | Visit | | [facility] [address] | | | [address] [place] | | | | | | [place] [address] | | | | | | [phone] | | | | | | | | +--------+ + + + + | 12/20/ | Office | Otolaryngology | Ulysses Genao MD | | | 2019 | Visit | | [address] | | | | | | [address] [place], | | | | | | [place] [address] | | | | | | [phone] | | | | | | | | +--------+ + + + + documented as of this encounter Visit Diagnoses Not on filedocumented in this encounter"
--- OUTSIDE RECORDS SUMMARY | ~2019-10-16 | XMS | Encounter Summary ---
Demographics + + + | Address | [address] | | | [place] [address] | + + + | Home Phone [...] Team Providers + +------+ + | Care Suction Worker Name | Role | Phone | [...] | | | | SURGERY - | [place], [place] | [facility] [address] | | | | | UROLOGY | [address] | for Health | | | | | | Phone: | dat [place], | | | | | | [phone] | [address], | | | | | | Fax: | 10th Floor | | | | | | [phone] | [place], [place] | | | | | | | [address] | | | | | | | Phone: | | | | | | | [phone] | | | | | | | Fax: | | | | | | | [phone] | +--------+--------+ + + + + Reason [...] | Status Post | | | | [facility] | [facility] [place] | Bariatric Surgery | | | | and Healing, | [address] | | | | | [facility] | [phone] | | | | | Floor [place], [place] | | | | | | [address] | | | | | | [phone] | | | +--------+---------+ + + + [...] coughing. Medications: Fentanyl 25 mcg 72 hours, [place]/JOJO 10 mg/325 mg PRN Q 6 hrs, [...]
--- OUTSIDE RECORDS SUMMARY | ~2019-10-16 | XMS | Encounter Summary ---
Demographics + + + | Address | [address] | | | [place] [address] | + + + | Home Phone [...] Team Providers + +------+ + | Care Balloon Dipper Name | Role | Phone | + +------+ + | Pedrito Gutierrez MD | PCP | | + +------+ + Encounter Details +--------+ + + + + | Date | Type | Department | Care Team | Description | +--------+ + + + + | 04/02/ | Procedure - | | Endoscopy, Gi | Various: EGD | | 2005 | | | | (esophag,COLONOSCOPY | | | Transcribed | | | [...] + + + | COLONOSCOPY | | 04/02/2006 | | | + +--------+ + + + | EGD | | 04/02/2006 | | | + +--------+ + + + | BRONCHOSCOPY | | 04/02/2006 | | | + +--------+ + + + documented in this encounter Visit Diagnoses Not on filedocumented in this encounter"
--- OUTSIDE RECORDS SUMMARY | ~2019-10-16 | XMS | Encounter Summary ---
Demographics + + + | Address | [address] | | | [place] [address] | + + + | Home Phone [...] Team Providers + +------+ + | Care Brass Plater Name | Role | Phone | [...]
--- OUTSIDE RECORDS SUMMARY | ~2019-10-16 | XMS | Encounter Summary ---
Demographics + + + | Address | [address] | | | [place] [address] | + + + | Home Phone [...] Team Providers + +------+ + | Care Plastics Bench Mechanic Name | Role | Phone | [...] [place] | | | | | [facility] | [place], [place] | | | | | [address] | [address] | | | | | [address] | [phone] | | | | | Physician's Pavilion | | | | | | Physician's | | | | | | Pavilion [place], | | | | | | [place] [address] | | | | | | [phone] | | | +--------+--------+ + + + [...]
--- OUTSIDE RECORDS SUMMARY | ~2019-10-16 | XMS | Encounter Summary ---
Demographics + + + | Address | [address] | | | [place] [address] | + + + | Home Phone [...] Providers + +------+ + | Care Home Help Aide Name | Role | Phone | [...] Vomiting | | 2018 | | MEDICINE [address] [place] [address] | MD Petrona | | | | | [facility] | [address] [place] [address] | | | | | [place] [address] | [place] [address] | | | | | [phone] | [phone] | | | | | | | [...] | | | | | [place] [address] | | | | | | [phone] | | | | | | | | +--------+ + + + + | 12/20/ | Office | Audiology | Elisabet Munson MS | | 2019 | Visit | | [facility] [address] | | | | [address] [place] | | | | | | [place] [address] | | | | | | [phone] | | | | | | | | +--------+ + + + + | 12/20/ | Office | Otolaryngology | Ulysses Genao MD | | | 2020 | Visit | | [address] | | | | | | [address] [place], | | | | | | [place] [address] | | | | | | [phone] | | | | | | | | +--------+ + + + + documented as of this encounter Visit Diagnoses Not on filedocumented in this encounter"
--- OUTSIDE RECORDS SUMMARY | ~2019-10-16 | XMS | Encounter Summary ---
Demographics + + + | Address | [address] | | | [place] [address] | + + + | Home Phone [...] Providers + +------+ + | Care Manager Fund Name | Role | Phone | + [...] + | 02/15/ | Office | [facility] | Alanis, | Antibiotic-associate | | 2019 | Visit | MEDICINE [address] | MD Petrona | d diarrhea (Primary | | | | Street [place] | [address] [facility] | Dx); [facility] | | | | [place] [address] | [place] [address] | prescription opiate | | | | [phone] | [phone] | use; Seasonal | | | | [...] | | | | | [place] [address] | | | | | | [phone] | | | | | | | | +--------+ + + + + | 12/20/ | Office | Audiology | Elisabet Munson MS | | | 2019 | Visit | | [facility] [address] | | | | | | [address] [place] | | | | | | [place] [address] | | | | | | [phone] | | | | | | | | +--------+ + + + + | 12/20/ | Office | Otolaryngology | Ulysses Genao MD | | | 2019 | Visit | | [address] [place] | | | | | | [address] [place], | | | | | | [place] [address] | | | | | | [phone] | | | | | | | [...] | 0.87 | 0.55 - 1.02 | [facility] | | | | mg[facility]dL | [facility] | | | | | | [facility] | | | | | | CENTER - | | | | | | LABORATORY | | + + + + + + | eGFR if not | >60Comment: GLOMERULAR | >=60 | [facility] | | | | FILTRATION | mL/min/1.73m2 | [facility] | | | MONTSERR[facility]IAN | RATE,ESTIMATED | | MEDICAL | | | | mL/min/1.61e5Fboa than | | CENTER - | | [...] + | [address] | [address] | [place], [place] | [phone] | | [facility] | | [address] | | | - LABORATORY | | [...] [address] | [place] | [phone] | | [facility] | | [address] | | | - LABORATORY | | | | + + + + + documented in this encounter Visit Diagnoses + + | Diagnosis | + + | Antibiotic-associated diarrhea - Primary Diarrhea | + + | [facility] prescription opiate use | + + | [...] | | | | First dose on [facility] 10/15/17 at 1215 | | | [...]
--- OUTSIDE RECORDS SUMMARY | ~2019-10-16 | XMS | Encounter Summary ---
Demographics + + + | Address | [address] | | | [place] [address] | + + + | Home Phone [...] Team Providers + +------+ + | Care Planing Machine Operator Name | Role | Phone [...] + + | 04/19/ | Telephone | [facility] | Alanis, | Lab Results | | 2019 | | MEDICINE [address] [place] [address] | MD Petrona | | | | | [facility] | [address] [place] [address] | | | | | [place] [address] | [place] [address] | | | | | [phone] | [phone] | | | | | | | [...] | | [facility] [address] | | | | | | [place] [address] | | | | | | [phone] | | | | | | | | +--------+ + + + + | 12/20/ | Office | Audiology | Elisabet Munson MS | | 2019 | Visit | | [facility] [address] | | | | | [address] [place] | | | | | | [place] [address] | | | | | | [phone] | | | | | | | | +--------+ + + + + | 12/20/ | Office | Otolaryngology | Ulysses Genao MD | | | 2020 | Visit | | [address] | | | | | | [address] [place], | | | | | | [place] [address] | | | | | | [phone] | | | | | | | | +--------+ + + + + documented as of this encounter Visit Diagnoses Not on filedocumented in this encounter"
--- OUTSIDE RECORDS SUMMARY | ~2019-10-16 | XMS | Encounter Summary ---
Demographics + + + | Address | [address] | | | [place] [address] | + + + | Home Phone [...] Team Providers + +------+ + | Care Blue Split Trimmer Name | Role | Phone | [...] | | | | L223A Physician's | [place], [place] | | | | | [address] | [address] | | | | | [place], [place] | [phone] | | | | | [address] | | | | | | [phone] | | | +--------+ + + + [...] + | Performing | Address | City[facility] | Phone Number | | Organization | | | | + +---------+ + + | [facility] DEPARTMENT OF | | | | | [...]
--- OUTSIDE RECORDS SUMMARY | ~2019-10-16 | XMS | Encounter Summary ---
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 Provider: DELFINA MOLINA ANP elfina Molina - 007 6:13 PM PST.pt rlands Nathalia willson - 07/15/2006 4:28 PM PSTFormatting of this note might be different from the origin al. Physical Therapy Medicare Progress Note Date: 07/15/2006 Belinda Meehan [id number]. 1960 Start of Care: 06/23/2006 Referring Provider: [...] + + +--------+ + + | [place] MANUAL THER | Procedures | Routin | [...] + + +--------+ + + | [place] THERAPEUTIC | Procedures | Routin | Cervical [...]
--- OUTSIDE RECORDS SUMMARY | ~2019-10-16 | XMS | Encounter Summary ---
Demographics + + + | Address | [address] | | | [place] [address] | + + + | Home Phone [...] Providers + +------+ + | Care Stone Processing Machine Operator Name | Role | Phone [...] | | | | | [place] | OTRI | | | | | MD [address] | [place] [address] | | | | | | [address] | Phone: | | | | | | [place], | [phone] | | | | | | [place] | Fax: | | | | | | [address] | [phone] | | | | | | Phone: | | | | | | | [phone] | | | | | | | Fax: | | | | | | | [phone] | | +--------+ + + + + + Encounter Details +--------+---------+ + + + | Date | Type | Department | Care Team | Description | +--------+---------+ + + + | 10/18/ | Office | [facility] | Emmy-Kamlesh, | Obesity (BMI | | 2018 | Visit | GASTROENTEROLOGY | MD Petrona | 30.0-34.9) (Primary | | | | [address] [place] | [address] [place] | Dx); Nausea; Dumping | | | | [address] [place] | [place] [address] | syndrome; Cec[place] | | | | [address] | [phone] | volvulus (HCC); | | | | [phone] | | Gastroesophageal | | | | | Luther Brito MD | reflux disease, | | | | | [address] | esophagitis presence | | | | | [place] | not specified | | | | | [address] | | | | | | [phone] | | | | | | | [...] + + + + | 06/02/ | Office | Internal Medicine | Alanis, | | | 2019 | Visit | | MD [place]rona | | | | | | [address] [place] | | | | | | [place] [address] | | | | | | [phone] | | | | | | | | +--------+ + + + + | 12/20/ | Office | Audiology | Elisabet Munson MS | | | 2019 | Visit | | [facility] [address] | | | | | [address] [place] | | | | | | [place] [address] | | | | | | [phone] | | | | | | | | +--------+ + + + + | 12/20/ | Office | Otolaryngology | Ulysses Genao MD | | | 2019 | Visit | | [address] [place] | | | | | | [address] [place], | | | | | | [place] [address] | | | | | | [phone] | | | | | | | [...]
--- OUTSIDE RECORDS SUMMARY | ~2019-10-16 | XMS | Encounter Summary ---
Demographics + + + | Address | [address] | | | [place] [address] | + + + | Home Phone [...] Team Providers + +------+ + | Care Enamel Applier Name | Role | Phone | [...] Pavilion | | | | | | [place], [place] | | | | | | [address] | | | | | | [phone] | | | +--------+ + + + [...]
--- OUTSIDE RECORDS SUMMARY | ~2019-10-16 | XMS | Encounter Summary ---
Demographics + + + | Address | [address] | | | [place] [address] | + + + | Home Phone [...] Providers + +------+ + | Care Steel Rod Buster Name | Role | Phone | + [...] | Procedures | [address] | [place] | | | | | CONSULT TO | [facility] | [address] | | | | | GI PROCEDURE | Rd | floor | | | | | UNIT: SM | [place], [place] | [place], [place] | | | | | BOWEL | [address] | [address] | | | | | CAPSULE | Phone: | Phone: | | | | | ENDOSCOPY | [phone] | [phone] | | | | | | | Fax: | | | | | | | [phone] | +--------+--------+ + + + + Consultation [...] | | | | Procedures | [facility] | [place], [place] | | | | | CONSULT TO | Rd | [address] | | | | | PAIN CENTER | [place], [place] | | | | | | | [address] | | | | | | | Phone: | | | | | | | [phone] | | +--------+--------+ + + + + Encounter Details +--------+---------+ + + + | Date | Type | Department | Care Team | Description | +--------+---------+ + + + | 04/07/ | Office | [facility] Division of | Carlos Arreola, | Iron Deficiency; | | 2005 | Visit | Gastroenterology/Hep | [address] | Chronic Abdominal | | | | atology [address] | [facility] | Pain | | | | [address] | [place] [address] | | | | | Mailcode: PV310 | [phone] | | | | | Physician's Pavilion | | | | | | [address] | | | | | | [place], [place] | | | | | | [address] | | | | | | [phone] | | | +--------+---------+ + + + [...] December reviewed and normal (past ed below). [facility] labs received and reviewed: neg O&P UPPER [...] HEPATIS NODES. Transcribed By: Armaan Rivera : [id number] : 1224 Approved By: CT ABDOMEN AND [...] HEPATIS NODES. Transcribed By: Armaan Mata : [id number] : 1224 Approved By: Carlos Benton - [...]
--- OUTSIDE RECORDS SUMMARY | ~2019-10-16 | XMS | Encounter Summary ---
Demographics + + + | Address | [address] | | | [place] [address] | + + + | Home Phone [...] Providers + +------+ + | Care Spray Painter Name | Role | Phone | [...] + + | 03/03/ | Office | 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 female [facility] Comprehensive Pain Center Return [...] be ing reviewed by Dr Constantino SHEEHAN print operator. MRI of the brain and it was normal A Brief Pain Inventory and a pain drawing has be completed, which I reviewed. [facility] Brief Pain Inventory: (ten= worst possible pain [...] Ogden PhD TPI every 5-6 months with [facility] Rheumatology Hilda Saenz Review of Systems: Bones, [...] history, fam bijan history, or social history. [facility] Encorinology [facility] ACNP ThuNovember 12, 2007 Assessment: [...] continue to discuss with her options at [facility] with, hopefully, coordinatio n of services. RTC [...] 300 mg) by oral route once daily zkfwdskgjf-nnecxfdyoqubo-navphhrl (FIORICET) 50-325-40 mg Oral Tablet take 2 [...] DISK BULGE. Transcribed By: Armaan Mata : [id number] : 1442 Approved By: Radiologist: Physical Examination: [...] [facility] Mail code CH 4P [facility] [address] [place] [address] Ailyn Foster - 03/03/20 08 10:24 [...]
--- OUTSIDE RECORDS SUMMARY | ~2019-10-16 | XMS | Encounter Summary ---
Demographics + + + | Address | [address] | | | [place] [address] | + + + | Home Phone [...] Team Providers + +------+ + | Care Stained Glass Installer Name | Role | Phone [...] + + | 03/14/ | Office | [facility] Comprehensive | RileyDelfina joaquin, | Spondylosis with | | 2006 | Visit | Pain Center at | ANP | Myelopathy, Lumbar | | | | [facility] | | Region; Herniated | | [...] of Left | | | | Floor [place], [place] | | Knee; Right shoulder | | | | [address] | | rotator cuff | | | | [phone] | | strain; Major | | | [...] previous 6 days. 2. May continue with Hoolehua NTE 4 per day as prescribed 3. [...] Belinda Meehan is a 46 y.o. female [facility] Comprehensive Pain Center Return Visit Chief Complaint: Chief Complaint Patient presents with Pain History of Present Illness: Belinda Meehan is a 46 y.o. year-old female with a history of chronic pain due to degenerative spine disease, abdominal pain, fibromyalgia and right rot ator cuff injury. Belinda reports pain in her left knee and having seen Dr. Morales in orth opedics at [facility], she reports that surgery is not an [...] swelling has resolved. Belinda has been using Hoolehua 10/325 an average of 5 tablets per day. 1 tablet has an effecti ve duration of 5 hours "pain breaks through at about 4 hours", she reports taking a Hoolehua ev eduardo 5 hours. She denies any [...] Collection Time Resulting Agency 07/30/2006 4:00 PM [facility] DEPARTMENT OF PATHOLOGY Component Results Component Value [...] previous 6 days. 2. May continue with Hoolehua NTE 4 per day as prescribed 3. Continue with PT and Psychology as scheduled. 4. Continue with Trileptal 150mg 1 1/2 tablet twice a day 5. Follow up to review medications on 09/09/06 and call with any concerns or questions. DELFINA MOLINA [facility] Comprehensive Pain Center Mail code CH 4P [facility] and [address] [address] Ailyn Foster - 08/27/19 9:09 [...] medication refills today? [facility] Plan of Treatment Not on [...]
--- OUTSIDE RECORDS SUMMARY | ~2019-10-16 | XMS | Encounter Summary ---
Demographics + + + | Address | [address] | | | [place] [address] | + + + | Home Phone [...] Providers + +------+ + | Care Juvenile Detention Officer Name | Role | Phone | [...] | | | | L[address]A Physician's | [place], [place] | | | | | [address] | [address] | | | | | [place], [place] | [phone] | | | | | [address] | | | | | | [phone] | | | +--------+ + + + [...] + + + | [facility] | [address] | [place] [address] | | | LABORATORY | | | [...] DEPARTMENT OF | [address] | [place] [address] | | | PATHOLOGY | [address] | | | + + + + + | [facility] | [address] | [place] [address] | | | PATHOLOGY | [address] | | | + + + + + documented in this encounter Visit Diagnoses Not on filedocumented in this encounter"
--- OUTSIDE RECORDS SUMMARY | ~2019-10-16 | XMS | Encounter Summary ---
Demographics + + + | Address | [address] | | | [place] [address] | + + + | Home Phone [...] Providers + +------+ + | Care Painter Aircraft Name | Role | Phone | + [...] + + | 09/13/ | Telephone | [facility] | Alanis, | Appointment | | 2019 | | MEDICINE [address] [place] [address] | MD Petrona | | | | | [facility] | [address] [place] [address] | | | | | [place] [address] | [place] [address] | | | | | [phone] | [phone] | | | | | | | [...] | | | | | [place] [address] | | | | | | [phone] | | | | | | | | +--------+ + + + + | 12/20/ | Office | Audiology | Elisabet Munson MS | | 2019 | Visit | | [address] | | | | | | [address] [place] | | | | | | [place] [address] | | | | | | [phone] | | | | | | | | +--------+ + + + + | 12/20/ | Office | Otolaryngology | Ulysses Genao MD | | | 2020 | Visit | | [address] | | | | | | [address] [place], | | | | | | [place] [address] | | | | | | [phone] | | | | | | | | +--------+ + + + + documented as of this encounter Visit Diagnoses Not on filedocumented in this encounter"
--- OUTSIDE RECORDS SUMMARY | ~2019-10-16 | XMS | Encounter Summary ---
Demographics + + + | Address | [address] | | | [place] [address] | + + + | Home Phone [...] Providers + +------+ + | Care Gold Miner Blasting Name | Role | Phone [...] + + | 04/04/ | Telephone | [facility] | Alanis, | Toe Fracture | | 2019 | | MEDICINE [address] [place] [address] | MD Petrona | | | | | [facility] | [address] [place] [address] | | | | | [place] [address] | [place] [address] | | | | | [phone] | [phone] | | | | | | | [...] | | | | | [place] [address] | | | | | | [phone] | | | | | | | | +--------+ + + + + | 12/20/ | Office | Audiology | Elisabet Munson MS | | 2019 | Visit | | [facility] [address] | | | | | [address] [place] | | | | | | [place] [address] | | | | | | [phone] | | | | | | | | +--------+ + + + + | 12/20/ | Office | Otolaryngology | Ulysses Genao MD | | | 2020 | Visit | | [address] | | | | | | [address] [place], | | | | | | [place] [address] | | | | | | [phone] | | | | | | | | +--------+ + + + + documented as of this encounter Visit Diagnoses Not on filedocumented in this encounter"
--- OUTSIDE RECORDS SUMMARY | ~2019-10-16 | XMS | Encounter Summary ---
Demographics + + + | Address | [address] | | | [place] [address] | + + + | Home Phone [...] Team Providers + +------+ + | Care Strap Sewer Name | Role | Phone | [...] as of this encounter Progress Notes Interface, Technical Engineer In - 01/12/2005 9:13 AM PDT [id number] [facility] Date: 04/10/2004 Clinic: Rheumatology [...] with sitting and it is worse in engineering writer and early evening. Her IGF-1 was low [...] 3 months. Caitlin Rivera M.S., F.N.P. / [id number] / [id number] / [id number] / cc: Pedrito Gutierrez M.D. [address] [facility] [place] [address] documented i n this encounter Plan of Treatment Not on filedocumented as of this encounter Visit Diagnoses Not on filedocumented in this encounter"
--- OUTSIDE RECORDS SUMMARY | ~2019-10-16 | XMS | Encounter Summary ---
Demographics + + + | Address | [address] | | | [place] [address] | + + + | Home Phone [...] + +------+ + | Care Manager Of Recruiting Name | Role | Phone | + [...] | | | | L[address]A Physician's | [place], [place] | | | | | [address] | [address] | | | | | [place], [place] | [phone] | | | | | [address] | | | | | | [phone] | | | +--------+ + + + [...] OF | [address] | [place] [address] | | | PATHOLOGY | [address] | | | + + + + + | [facility] DEPARTMENT OF | [address] | [place] [address] | | | PATHOLOGY | [address] [...] [facility] | [address] | [place] [address] | | | PATHOLOGY | [address] | | | + + + + + | [facility] | [address] | [place] [address] | | | PATHOLOGY | [address] | | | + + + + + documented in this encounter Visit Diagnoses Not on filedocumented in this encounter"
--- OUTSIDE RECORDS SUMMARY | ~2019-10-16 | XMS | Encounter Summary ---
Demographics + + + | Address | [address] | | | [place] [address] | + + + | Home Phone [...] Team Providers + +------+ + | Care Cast Associate Name | Role | Phone | [...] | | | | sciatica | [place] [address] | | | | | | S/P lumbar | Phone: | | | | | | fusion | [phone] | | | | | | Sacroiliac | Fax: | | | | | | inflammation | [phone] | | | | | | (HCC) [...] | | | | sciatica | [place] [address] | [address] | | | | | S/P lumbar | Phone: | Phone: | | | | | fusion | [phone] | [phone] | | | | | Sacroiliac | Fax: | Fax: | | | | | inflammation | [phone] | [phone] | | | | | ([facility]) | | | | | | | [...] | | sciatica | [address] | [address] Phone: | | | | | | [place], | [phone] | | | | | | [place] | Fax: | | | | | | [address] | [phone] | | | | | | Phone: | | | | | | | [phone] | | | | | | | Fax: | | | | | | | [phone] | | +--------+ + + + + + Encounter Details +--------+---------+ + + + | Date | Type | Department | Care Team | Description | +--------+---------+ + + + | 09/23/ | Office | [facility] | Lencho Rivas, | Sacroiliac | | 2019 | Visit | PHYSIATRY [address] | PA-C [address] | inflammation (HCC) | | | | [address] | [address] [place] | (Primary Dx); Acute | | | | [place] | [place] [address] | midline low back | | | | [address] | [phone] | pain with bilateral | | | | [phone] | | sciatica; S/P lumbar | | [...] 9:20 AM PDTReferral to michelle james ([facility]). Referral to massage therapy. Due to severity [...] press against a nerve. Date Last Reviewed: 08/13/201719991216-2981 [employer]. [address] [place] [address]. All righ ts reserved. This information is not intended as a substitute for professional medical care. Always follow your healthcare professional's instructions. documented in this encounter Progress Notes Lencho Rivas PA-C - 09/23/2018 9:20 AM PDTFormatting of this note might be different fro m the original. Lencho Rivas PA-C [address] [place] [address], [address] [place] [address] FAX: CHIEF COMPLAINT: Chief Complaint Patient presents [...] COPD (chronic obstructive pulmonary disease) ([facility]) Depression Diarrhea Dumping syndrome Fall at home Fatigue fracture of vertebra Fibromyalgia Full dentures GERD (gastroesophageal reflux disease) Glaucoma Hyperparathyroidism ([facility]) Hypothyroidism IBS (irritable bowel syndrome) Idiopathic scoliosis Leg edema Low back pain Lumbar postlaminectomy syndrome Lumbar radiculopathy primarily right 01/04/2015 Meniere syndrome Migraine with aura Migraines Muscle cramping Muscle spasm Myalgia Nausea Nonalcoholic hepatosteatosis Obesity Opioid dependence ([facility]) Orthostatic hypotension OLIVER (obstructive sleep apnea) Osteoarthritis, generalized Osteopenia Osteoporosis Palpitations Peripheral neuropathy Rheumatoid arthritis ([facility]) Right arm pain 01/04/2015 RLS (restless legs syndrome) S/P lumbar fusion 01/04/2015 Scoliosis Sleep apnea Spondylosis with myelopathy, lumbar region Stroke ([facility]) Syncope Tremor Type II or unspecified type diabetes mellitus with other specified manifestations, not stated as uncontrolled 05/04/2017 Vitamin D deficiency PAST SURGICAL HISTORY: Past Surgical History: Procedure Laterality Date ADENOIDECTOMY APPENDECTOMY BREAST LUMPECTOMY Left 2002 CARPAL TUNNEL RELEASE 2002 SECTION CHOLECYSTECTOMY 2004 COLONOSCOPY N/A 12/18/2017 Procedure: COLONOSCOPY; Surgeon: Luther Brito MD; Location: [facility] MEDICAL PROCEDURE UNIT DILATION AND CURETTAGE OF UTERUS ELBOW SURGERY FINGER TRIGGER RELEASE 2003 FINGER TRIGGER RELEASE 2010 GASTRIC BYPASS SURGERY 2004 HYSTERECTOMY 05/14/1980 JOINT REPLACEMENT Bilateral 2007 2008 KNEE ARTHROSCOPY 2005 LAPAROSCOPY 01/27/2015 LAPAROTOMY 2008 ROTATOR CUFF REPAIR 2005 SPINE SURGERY TONSILLECTOMY 1964 UPPER GASTROINTESTINAL ENDOSCOPY N/A 12/18/2017 Procedure: EGD; Surgeon: Luther Brito MD; Location: [facility] MEDICAL PROCEDURE UNIT CURRENT MEDICATIONS: Current [...] (See Comments) Confused and questionable for seizures Kvgliaxjqh-Xqkr-Lravkszo Hives and Rash Cephalexin Hives Ciprofloxacin Hives [...] has no apparent deficits with short or fci memory. Cranial nerves 2-12 appear grossly intact. [...] currently enrolled in a pain clinic in [place], [place]. 5) Patient will follow up with [...] | | | | | [place] [address] | | | | | | [phone] | | | | | | | | +--------+ + + + + | 12/20/ | Office | Audiology | Elisabet Munson MS | | | 2019 | Visit | | [facility] [address] | | | | | | [address] | | | | | | [place] [address] | | | | | | [phone] | | | | | | | | +--------+ + + + + | 12/20/ | Office | Otolaryngology | Ulysses Genao MD | | | 2019 | Visit | | [address] [place] | | | | | | [address] [place], | | | | | | [place] [address] | | | | | | [phone] | | | | | | | [...]
--- OUTSIDE RECORDS SUMMARY | ~2019-10-16 | XMS | Encounter Summary ---
Demographics + + + | Address | [address] | | | [place] [address] | + + + | Home Phone [...] Team Providers + +------+ + | Care Hard Tile Setter Apprentice Name | Role | Phone | + +------+ + | Petrona Thapa | PCP | | | MD | | | + +------+ + Encounter Details +--------+ + + + + | Date | Type | Department | Care Team | Description | +--------+ + + + + | 05/10/ | Orders Only | [facility] | Alanis, | Chronic bilateral | | 2017 | | MEDICINE [address] | MD [place]ron[place] | low back pain with | | | | Street [place] | [address] [facility] | left-sided sciatica | | | | [place] [address] | [place] [address] | (Primary Dx) | | | | [phone] | [phone] | | | | | | | [...] | | | | | [place] [address] | | | | | | [phone] | | | | | | | | +--------+ + + + + | 12/20/ | Office | Audiology | Elisabet Munson MS | | | 2019 | Visit | | [facility] [address] | | | | | | [place] [address] [place] | | | | | | [place] [address] | | | | | | [phone] | | | | | | | | +--------+ + + + + | 12/20/ | Office | Otolaryngology | Ulysses Genao MD | | | 2020 | Visit | | [address] | | | | | | [address] [place], | | | | | | [place] [address] | | | | | | [phone] | | | | | | | [...]
--- OUTSIDE RECORDS SUMMARY | ~2019-10-16 | XMS | Encounter Summary ---
Demographics + + + | Address | [address] | | | [place] [address] | + + + | Home Phone [...] Providers + +------+ + | Care High Worker Name | Role | Phone | [...] + + | 04/08/ | Office | [facility] | Alanis, | Pressure injury of | | 2018 | Visit | MEDICINE [address] | MD Petrona | right buttock, stage | | | | [facility] | [address] [place] [address] | 1 (Primary Dx); OLIVER | | | | [place] [address] | [place] [address] | (obstructive sleep | | | | [phone] | [phone] | apnea); Lower leg | | | [...] insufficiency Coccydynia COPD (chronic obstructive pulmonary disease) ([facility] [...] spasm Myalgia Nonalcoholic hepatosteatosis Obesity Opioid dependence ([facility]) Orthostatic hypotension OLIVER (obstructive sleep apnea) Osteoarthritis, generalized Osteopenia Osteoporosis Peripheral neuropathy Rheumatoid arthritis [facility] CURRENT MEDICATIONS [...] (See Comments) Confused and questionable for seizures Wmuxqhleca-Mpcw-Mwupsavf Hives and Rash Cephalexin Hives Ciprofloxacin Hives [...] like to check with a provider in [place] which is closer to her home for [...] Note: Parts of this documentwere created using [employer] speech recognition software. As a r [...] | | | | | [place] [address] | | | | | | [phone] | | | | | | | | +--------+ + + + + | 12/20/ | Office | Audiology | Elisabet Munson MS | | | 2019 | Visit | | [facility] | | | | | | [place] [address] [address] | | | | | | [place] [address] | | | | | | [phone] | | | | | | | | +--------+ + + + + | 12/20/ | Office | Otolaryngology | Ulysses Genao MD | | | 2020 | Visit | | [address] | | | | | | [address] [place], | | | | | | [place] [address] | | | | | | [phone] | | | | | | | [...] | | First dose on [facility] 10/15/17 at 1215 | | | [...]
--- OUTSIDE RECORDS SUMMARY | ~2019-10-16 | XMS | Encounter Summary ---
Demographics + + + | Address | [address] | | | [place] [address] | + + + | Home Phone [...] Providers + +------+ + | Care Custom Dressmaker Name | Role | Phone | + [...] as of this encounter Progress Notes Interface, International Tax Manager In - 01/11/2005 8:56 PM PDTClinic Date: [...] bypass surgery and will be admitted to [facility] for this procedure on November 22, 2003. [...] Ester Romero M.D. Issac Meeks M.D. / [id number] / [id number] / [id number] / [id number] Tdocumented in this encounter Plan of Treatment Not on filedocumented as of this encounter Visit Diagnoses Not on filedocumented in this encounter"
--- OUTSIDE RECORDS SUMMARY | ~2019-10-16 | XMS | Encounter Summary ---
Demographics + + + | Address | [address] | | | [place] [address] | + + + | Home Phone [...] Team Providers + +------+ + | Care Commissary Agent Name | Role | Phone | [...] | Pain | Diagnoses | Miracle, | Yates, | | | | Management | LBP (low | NIHARIKA Jean | Lukasz Rhodes, PhD | | | | | back pain) | [address] | [address] | | | | | DJD | [address] | Ave | | | | | (degenerativ | [place], [place] | [place] | | | | | e joint | [address] | [address] | | | | | disease) of | | Phone: | | | | | knee Knee | | [phone] | | | | | pain Major | | Fax: | | | | | depressive | | [phone] | | | | | disorder, | [...] 04/28/ | Office | [facility] | Lukasz Charles, | Major Depressive | | 2007 | Visit | [address] | PhD [address] | Disorder, Recurrent | | | | Mailcode: CH15P | [place], [place] | Episode, Mild (HCC); | | | | [facility] | [address] | LBP (Low Back | | | | and Healing, | [phone] | Pain); Migraine | | | | | | Headache | | | | Floor [place], [place] | | | | | | [address] | | | | | | [phone] | | | +--------+---------+ + + + [...] scheduled to come here after surgery. Diagnosis: Anabel I: 1. (296.31) Major depressive disorder, recurrent, mild. 2. (309.24) Adjustment disorder with anxiety. 3. 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 Anabel II: Deferred Anabel III: abdominal pain, migraine headache, low back pain. Anabel IV: low finances Anabel V: GAF 55-60 Plan: return with next medical follow-up appointment. Check mood, pain, surgical recovery , relaxation, activity, distraction, eating. Ask about headaches, fainting, Thanksgiving. Continue cognitive/behavioral therapy. Total time spent with patient was approximately 45 minutes. LUKASZ CHARLES PHD [facility] [address] [facility], [address] [place] [address] documented in this encount er Plan of Treatment + + +--------+ + + | Name | Type | Priori | Associated Diagnoses | Order Schedule | | | | ty | | | + + +--------+ + + | [facility], | Procedures | Routin | Major Depressive | Ordered: 04/28/2008 | | OFFICE (95-02) | | e | Disorder, Recurrent | [...]
--- OUTSIDE RECORDS SUMMARY | ~2019-10-16 | XMS | Encounter Summary ---
Demographics + + + | Address | [address] | | | [place] [address] | + + + | Home Phone [...] Providers + +------+ + | Care Child Welfare Caseworker Name | Role | Phone | + [...] | | | [facility] | [place], [place] | and counseling; | | | | [address] | [address] | [place] | | | | [address] | [phone] | | | | | [facility] | | | | | | Physician's | | | | | | Pavilion [place], | | | | | | [place] [address] | | | | | | [phone] | | | +--------+ + + + [...]
--- OUTSIDE RECORDS SUMMARY | ~2019-10-16 | XMS | Encounter Summary ---
Demographics + + + | Address | [address] | | | [place] [address] | + + + | Home Phone [...] Providers + +------+ + | Care Board Certified Arts Therapist Name | Role | Phone | [...] Jayce Hartley | | | | | [facility] | [address] [place], | | | | | [address] | [place] [address] | | | | | Mailcode: CH15P | | | | | | [facility] | | | | | | and Healing, | | | | | | Building | | | | | | Floor [place], [place] | | | | | | [address] | | | | | | [phone] | | | +--------+ + + + [...]
--- OUTSIDE RECORDS SUMMARY | ~2019-10-16 | XMS | Encounter Summary ---
Demographics + + + | Address | [address] | | | [place] [address] | + + + | Home Phone [...] Providers + +------+ + | Care Health Claims Examiner Name | Role | Phone | [...] + + | 07/16/ | Telephone | [facility] | Alanis, | IV Medication | | 2017 | | MEDICINE [address] [place] [address] | MD [place]ron[place] | | | | | [facility] | [address] [place] [address] | | | | | [place] [address] | [place] [address] | | | | | [phone] | [phone] | | | | | | | [...] | | | | | [place] [address] | | | | | | [phone] | | | | | | | | +--------+ + + + + | 12/20/ | Office | Audiology | Elisabet Munson MS | | | 2019 | Visit | | [facility] [address] | | | | | [address] [place] | | | | | | [place] [address] | | | | | | [phone] | | | | | | | | +--------+ + + + + | 12/20/ | Office | Otolaryngology | Ulysses Genao MD | | | 2019 | Visit | | [address] | | | | | | [address] [place], | | | | | | [place] [address] | | | | | | [phone] | | | | | | | | +--------+ + + + + documented as of this encounter Visit Diagnoses Not on filedocumented in this encounter"
--- OUTSIDE RECORDS SUMMARY | ~2019-10-16 | XMS | Encounter Summary ---
Demographics + + + | Address | [address] | | | [place] [address] | + + + | Home Phone [...] Team Providers + +------+ + | Care Cornice Maker Name | Role | Phone | + +------+ + | Pedrito Gutierrez MD | PCP | | + +------+ + Encounter Details +--------+ + + + + | Date | Type | Department | Care Team | Description | +--------+ + + + + | 01/11/ | Telephone | [facility] | Chris Padgett, | | | 2009 | | [place] [address] | [address] [facility] | | | | | Bethanie Mailcode: CH4S | [facility] | | | | | Center for Health | [place], [place] | | | | | and Healing, | [address] | | | | | Building | [phone] | | | | | Floor [place], [place] | | | | | | [address] | | | | | | [phone] | | | +--------+ + + + [...]
--- OUTSIDE RECORDS SUMMARY | ~2019-10-16 | XMS | Encounter Summary ---
Demographics + + + | Address | [address] | | | [place] [address] | + + + | Home Phone [...] Team Providers + +------+ + | Care Ui Engineer Name | Role | Phone | [...] | | unspecified | [place], [place] | [address] | | | | | laterality | [address] | Phone: | | | | | | Phone: | [phone] | | | | | | [phone] | Fax: | | | | | | Fax: | [phone] | | | | | | [phone] | | +--------+ + + + + [...] [place], | unspecified | | | | [place], [place] | [place] [address] | laterality (Primary | | | | [address] | [phone] | Dx) | | | | [phone] | | | +--------+ + + + [...] | | | | | [place] [address] | | | | | | [phone] | | | | | | | | +--------+ + + + + | 12/20/ | Office | Audiology | Elisabet Munson MS | | | 2019 | Visit | | [facility] | | | | | | [address] | | | | | | [place] [address] | | | | | | [phone] | | | | | | | | +--------+ + + + + | 12/20/ | Office | Otolaryngology | Ulysses Genao MD | | | 2020 | Visit | | [address] | | | | | | [address] [place], | | | | | | [place] [address] | | | | | | [phone] | | | | | | | [...]
--- OUTSIDE RECORDS SUMMARY | ~2019-10-16 | XMS | Encounter Summary ---
Demographics + + + | Address | [address] | | | [place] [address] | + + + | Home Phone [...] Providers + +------+ + | Care Clinic Licensed Practical Nurse Name | Role | Phone | [...] | Procedures | [address] | [place] | | | | | CONSULT TO | [address] | [address] | | | | | GI PROCEDURE | Rd | floor | | | | | UNIT: EGD | [place], [place] | [place], [place] | | | | | | [address] | [address] | | | | | | Phone: | Phone: | | | | | | [phone] | [phone] | | | | | | | Fax: | | | | | | | [phone] | +--------+--------+ + + + + Consultation [...] | | | | | UNIT: | [place] | | | | | COLONOSCOPY | [address] | [address] | | | | | | Phone: | Phone: | | | | | | [phone] | [phone] | | | | | | | Fax: | | | | | | | [phone] | +--------+--------+ + + + + Reason [...] + + | 03/10/ | Office | [facility] Division of | Carlos Arreola, | Chronic Abdominal | | 2005 | Visit | Gastroenterology/Hep | MD [address] | Pain; Iron | | | | atology [address] | Deficiency | | | | [address] | [place] [address] | | | | | Mailcode: PV310 | [phone] | | | | | [facility] | | | | | | [address] | | | | | | [place], [place] | | | | | | [address] | | | | | | [phone] | | | +--------+---------+ + + + [...] so by calling and asking for my shipping assistant Cierra Alexis. I always do my [...] other questions or issues. Carlos Arreola MD. [facility] Division Of Gastroenterology/Hepatology [address] [place] [address] [place] [address] documented in this encounter Progress Anup Plascencia [...] prior heavy use 20 -25yrs ago ('tended aligner barrel and receiver then'). Lost 200lbs psot bypass surgery, has [...] + + + + | [facility] | [address] | [place] [address] | | | PATHOLOGY | [address] | | | + + + + + | [facility] | [address] | [place] [address] | | | PATHOLOGY | [address] [...] + + + + | [facility] | [address] [facility] | [place] [address] | | | PATHOLOGY | [address] | | | + + + + + | [facility] | [address] | [place] [address] | | | PATHOLOGY | [address] [...] | [facility] DEPARTMENT OF | [address] | [place] [address] | | | PATHOLOGY | [address] | | | + + + + + | [facility] | [facility] [address] | [place] [address] | | | PATHOLOGY | [address] [...] DEPARTMENT OF | [address] | [place] [address] | | | PATHOLOGY | [address] | | | + + + + + | [facility] | [address] | [place] [address] | | | PATHOLOGY | [address] [...] | pg/mL | | | | | [facility]. | | | | + + + + + + + + | Specimen | + + | | + + + + + + + | Performing | Address | City/State/Zipcode | Phone Number | | Organization | | | | + + + + + | [facility] | [address] | [place] [address] | | | LABORATORY | | | [...] | | | | | performed at [place] | | | | | | [facility] | | | | | | Laboratory | | | | + + + + + + + + | Specimen | + + | | + + + + + + + | Performing | Address | City/State/Zipcode | Phone Number | | Organization | | | | + + + + + | [facility] | [address] | [place] [address] | | | LABORATORY | | | | + + + + + documented in this encounter Visit Diagnoses + + | Diagnosis | + + | Chronic abdominal pain Abdominal pain, unspecified site | + + | Iron deficiency Other disorders of iron metabolism | + + documented in this encounter"
--- OUTSIDE RECORDS SUMMARY | ~2019-10-16 | XMS | Encounter Summary ---
Demographics + + + | Address | [address] | | | [place] [address] | + + + | Home Phone [...] Providers + +------+ + | Care Certified Art Therapist Name | Role | Phone | [...] as of this encounter Progress Notes Interface, Turfgrass Management Professor In - 01/11/2005 8:56 PM PDTClinic Date: [...] bypass surgery and will be admitted to [facility] for this procedure on November 22, 2003. [...] Ester Romero M.D. Issac Meeks M.D. / [id number] / [id number] / [id number] / [id number] Tdocumented in this encounter Plan of Treatment Not on filedocumented as of this encounter Visit Diagnoses Not on filedocumented in this encounter"
--- OUTSIDE RECORDS SUMMARY | ~2019-10-16 | XMS | Encounter Summary ---
Demographics + + + | Address | [address] | | | [place] [address] | + + + | Home Phone [...] Providers + +------+ + | Care Supervisor Parking Lot Name | Role | Phone | + [...] Rd | | | | | | [facility] | | | | | | [facility] Floor | | | | | | [place], [place] | | | | | | [address] | | | | | | [phone] | | | +--------+ + + + [...]
--- OUTSIDE RECORDS SUMMARY | ~2019-10-16 | XMS | Encounter Summary ---
Demographics + + + | Address | [address] | | | [place] [address] | + + + | Home Phone [...] Team Providers + +------+ + | Care Electrocardiograph Repairer Name | Role | Phone | [...] as of this encounter Progress Notes Interface, B2B Sales Manager In - 06/06/2005 2:05 AM [facility] [id number] GEOVANNI [facility] Date: 05/29/2005 Clinic: Bariatric [...] a day. She has had workups in [place] including CT and upper GI with small-bowel followthrough which have reportedly been negative. She has some recent changes in her medications including addition of a calcium channel colby and diclofenac. She says her symptoms gets worse every time she takes pain medicine. She is currently taking oxycodone. Her primary doctor in [place] is Dr. Gutierrez. Physical Examination: Vital Signs: [...] will try to arrange for her in [place], so she does not have to come out here. We will call Dr. Gutierrez to try to arrange for this and followup her within 3 months. The patient was seen with Dr. Padgett. Karen Cisneros M.D. Chris Padgett M.D. / SHARIF [id number] / [id number] / [id number] / [id number] Electronically signed by Chris Padgett 06-05-2005 05:29:09 PM documented i n this encounter Plan of Treatment Not on filedocumented as of this encounter Visit Diagnoses Not on filedocumented in this encounter"
--- OUTSIDE RECORDS SUMMARY | ~2019-10-16 | XMS | Encounter Summary ---
Demographics + + + | Address | [address] | | | [place] [address] | + + + | Home Phone [...] Providers + +------+ + | Care Salvage Engineer Name | Role | Phone | [...]
--- OUTSIDE RECORDS SUMMARY | ~2019-10-16 | XMS | Encounter Summary ---
Demographics + + + | Address | [address] | | | [place] [address] [...] + +------+ + | Care Director Of Home Care Hospice Name | Role | Phone | + +------+ + PCP | Unavailable | + +------+ + Encounter Details +--------+ + + + + | Date | Type | Department | Care Team | Description | +--------+ + + + + | 07/30/ | Hospital | [facility] | Ulysses Genao MD | | | 2011 - | Encounter | MED CTR OP RE[facility] | [address] | | | | | [address] [place] | [address] [place], | | | / | | [place] [address] | [place] [address] | | | 2011 | | [phone] | [phone] | | | | | | | [...] | | | | | [place] [address] | | | | | | [phone] | | | | | | | | +--------+ + + + + | 12/20/ | Office | Audiology | Elisbaet Munson MS | | | 2019 | Visit | | [facility] [address] | | | | [address] [place] | | | | | | [place] [address] | | | | | | [phone] | | | | | | | | +--------+ + + + + | 12/20/ | Office | Otolaryngology | Ulysses Genao MD | | | 2019 | Visit | | [address] | | | | | | [address] [place], | | | | | | [place] [address] | | | | | | [phone] | | | | | | | | +--------+ + + + + documented as of this encounter Visit Diagnoses Not on filedocumented in this encounter"
--- OUTSIDE RECORDS SUMMARY | ~2019-10-16 | XMS | Encounter Summary ---
Demographics + + + | Address | [address] | | | [place] [address] | + + + | Home Phone [...] [address] | | | | | | [place], [place] | | | | | | [address] | | | | | | [phone] | | | +--------+ + + + [...]
--- OUTSIDE RECORDS SUMMARY | ~2019-10-16 | XMS | Encounter Summary ---
Demographics + + + | Address | [address] | | | [place] [address] | + + + | Home Phone [...] Providers + +------+ + | Care Cloth Shader Name | Role | Phone | + [...] + + | 02/18/ | Telephone | [facility] | Alanis, | Results | | 2018 | | MEDICINE [address] | MD Petrona | | | | | [facility] | [address] [place] [address] | | | | | [place] [address] | [place] [address] | | | | | [phone] | [phone] | | | | | | | [...] | | | | | [place] [address] | | | | | | [phone] | | | | | | | | +--------+ + + + + | 12/20/ | Office | Audiology | Elisabet Munson MS | | 2019 | Visit | | [facility] [address] | | | | | | [address] [place] | | | | | | [place] [address] | | | | | | [phone] | | | | | | | | +--------+ + + + + | 12/20/ | Office | Otolaryngology | Ulysses Genao MD | | | 2020 | Visit | | [address] | | | | | | [address] [place], | | | | | | [place] [address] | | | | | | [phone] | | | | | | | | +--------+ + + + + documented as of this encounter Visit Diagnoses Not on filedocumented in this encounter"
--- OUTSIDE RECORDS SUMMARY | ~2019-10-16 | XMS | Clinical Summary ---
Demographics + + + | Address | [address] | | | [place] [address] | + + + | Home Phone [...] Team Providers + +------+ + | Care Copper Plate Printer Name | Role | Phone | + +------+ + | Sulaiman Carrera MD | PCP | | + +------+ + Source Comments MARK is fully live on both [facility] Ambulatory and [facility] InPatient.[facility] Allergies + + + + [...] + + + + + + | Rsptjhg-Zlrhibsksn-Q | | | 08/29/19 | Balance problems [...] in | | | | | | [facility]) | | | | | | made [...] | imbalances, sleep apnea, neck pain, medication [id number] | + + + + + | [...] | B | | sent | | [place], [place] | | | | | | | | [address] | | + +--------+ +--------+ + +--------+ | FINISHER BRUSH MEDICAID | FINISHER BRUSH | xxxxxxxx | | | | Medica [...] | 1960 | [phone] | [place] [address] | | | bijan | | | 3 (Home) | | + +--------+ +--------+ + + | Belinda Meehan | Medica | Self | [birth year] | | [address] | | | re | | 9 | [phone] | [place] [address] | | | Recurr | | | 3 (Home) | | | | ing | | | | | + +--------+ +--------+ + + Advance Directives + + + + + | Type | Date Recorded | Patient | Explanation | | | | Supply Chain Assistant | | + + + + + | Advance | 11/19/2004 12:00 | | ADVANCE DIRECTIVE | | Directives and | AM | | | | Living Will | | | | + + + + + | Power of | | | | | Train Brake Operator | | | | + + + [...]
--- OUTSIDE RECORDS SUMMARY | ~2019-10-16 | XMS | Encounter Summary ---
Demographics + + + | Address | [address] | | | [place] [address] | + + + | Home Phone [...] Team Providers + +------+ + | Care Instrumentation Engineer Name | Role | Phone | [...] + + | 06/13/ | Refill | [facility] | Alanis, | Medication Refill; | | 2018 | | MEDICINE [address] | MD Petrona | Medication Refill | | | | [facility] | [address] [place] [address] | | | | | [place] [address] | [place] [address] | | | | | [phone] | [phone] | | | | | | | [...] | | | | | [place] [address] | | | | | | [phone] | | | | | | | | +--------+ + + + + | 12/20/ | Office | Audiology | Elisabet Munson MS | | | 2019 | Visit | | [facility] [address] | | | | | | [address] [place] | | | | | | [place], [place] [address] | | | | | | [phone] | | | | | | | | +--------+ + + + + | 12/20/ | Office | Otolaryngology | Ulysses Genao MD | | | 2019 | Visit | | [address] [place] | | | | | | [address] [place], | | | | | | [place] [address] | | | | | | [phone] | | | | | | | | +--------+ + + + + documented as of this encounter Visit Diagnoses Not on filedocumented in this encounter"
--- OUTSIDE RECORDS SUMMARY | ~2019-10-16 | XMS | Encounter Summary ---
Demographics + + + | Address | [address] | | | [place] [address] | + + + | Home Phone [...] Providers + +------+ + | Care Insurance Specialist Name | Role | Phone | [...] + | 03/14/ | Refill | [facility] | Alanis, | Medication Refill | | 2018 | | MEDICINE [address] [place] [address] | MD Petrona | | | | | [facility] | [address] [place] [address] | | | | | [place] [address] | [place] [address] | | | | | [phone] | [phone] | | | | | | | [...] | | | | | [place] [address] | | | | | | [phone] | | | | | | | | +--------+ + + + + | 12/20/ | Office | Audiology | DarioElisabet ramires MS | | | 2019 | Visit | | [facility] [address] | | | | | [address] [place] | | | | | | [place], [place] [address] | | | | | | [phone] | | | | | | | | +--------+ + + + + | 12/20/ | Office | Otolaryngology | Ulysses Genao MD | | | 2019 | Visit | | [address] | | | | | | [address] [place], | | | | | | [place] [address] | | | | | | [phone] | | | | | | | | +--------+ + + + + documented as of this encounter Visit Diagnoses Not on filedocumented in this encounter"
--- OUTSIDE RECORDS SUMMARY | ~2019-10-16 | XMS | Encounter Summary ---
Demographics + + + | Address | [address] | | | [place] [address] | + + + | Home Phone [...] Providers + +------+ + | Care Training Technician Name | Role | Phone | + +------+ + | Sulaiman Carrera MD | PCP | | + +------+ + Encounter Details +--------+ + + + + | Date | Type | Department | Care Team | Description | +--------+ + + + + | 03/19/ | Ancillary | Registration 7661 | | | | 2004 | Registratio | [address] | | | | | n | Peterson Mailcode: [id number] | | | | | | [place], [place] | | | | | | [address] | | | | | | [phone] | | | +--------+ + + + [...]
--- OUTSIDE RECORDS SUMMARY | ~2019-10-16 | XMS | Encounter Summary ---
Demographics + + + | Address | [address] | | | [place] [address] | + + + | Home Phone [...] Team Providers + +------+ + | Care Explosive Operator Supervisor Name | Role | Phone | [...] + + | 07/28/ | Telephone | [facility] INTER[facility] | Alanis, | Other | | 2020 | | MEDICINE [address] [place] [address] | MD Petrona | | | | | [facility] | [address] [place] [address] | | | | | [place] [address] | [place] [address] | | | | | [phone] | [phone] | | | | | | | [...] | | | | | [place] [address] | | | | | | [phone] | | | | | | | | +--------+ + + + + | 12/20/ | Office | Audiology | Elisabet Munson MS | | 2019 | Visit | | [facility] [address] | | | | | | [address] [place] | | | | | | [place] [address] | | | | | | [phone] | | | | | | | | +--------+ + + + + | 12/20/ | Office | Otolaryngology | Ulysses Genao MD | | | 2020 | Visit | | [address] [facility] | | | | | | [address] [place], | | | | | | [place] [address] | | | | | | [phone] | | | | | | | | +--------+ + + + + documented as of this encounter Visit Diagnoses Not on filedocumented in this encounter"
--- OUTSIDE RECORDS SUMMARY | ~2019-10-16 | XMS | Encounter Summary ---
Demographics + + + | Address | [address] | | | [place] [address] [...] Team Providers + +------+ + | Care Accordion Maker Name | Role | Phone | [...] + | 12/26/ | Refill | [facility] | Alanis, | Medication Refill | | 2017 | | MEDICINE [address] [place] [address] | MD Petrona | | | | | [facility] | [address] [place] [address] | | | | | [place] [address] | [place] [address] | | | | | [phone] | [phone] | | | | | | | [...] | | | | | [place] [address] | | | | | | [phone] | | | | | | | | +--------+ + + + + | 12/20/ | Office | Audiology | DarioElisabet ramires MS | | | 2019 | Visit | | [facility] [address] | | | | | [address] [place] | | | | | | [place], [place] [address] | | | | | | [phone] | | | | | | | | +--------+ + + + + | 12/20/ | Office | Otolaryngology | Ulysses Genao MD | | | 2019 | Visit | | [address] [place] | | | | | | [address] [place], | | | | | | [place] [address] | | | | | | [phone] | | | | | | | | +--------+ + + + + documented as of this encounter Visit Diagnoses Not on filedocumented in this encounter"
--- OUTSIDE RECORDS SUMMARY | ~2019-10-16 | XMS | Encounter Summary ---
Demographics + + + | Address | [address] | | | [place] [address] | + + + | Home Phone [...] + +------+ + | Care Application Integration Specialist Name | Role | Phone | [...] of this encounter Progress Notes Interface, Gas Pumping Station Helper In - 12/11/2005 2:05 AM PDT [id number] GEOVANNI SKELTON J [id number] Clinic Date: 11/27/2005 Clinic: Rheumatology Primary Care [...] 6 months. Caitlin Rivera M.S., F.N.P. / [id number] / [id number] / [id number] / [id number] cc: Pedrito Gutierrez M.D. [address] [place] [address] Electronically signed by Caitlin Rivera 12-10-2005 09:27:21 AM documented i n this encounter Plan of Treatment Not on filedocumented as of this encounter Visit Diagnoses Not on filedocumented in this encounter"
--- OUTSIDE RECORDS SUMMARY | ~2019-10-16 | XMS | Encounter Summary ---
Demographics + + + | Address | [address] | | | [place] [address] | + + + | Home Phone [...] Providers + +------+ + | Care Director Gift Name | Role | Phone | + [...] | | | | Clinical Nutrition | [place], [place] | | | | | [address] | [address] | | | | | Loop Mailcode: OPC5 | [phone] | | | | | Outpatient Clinic | | | | | | [facility] | | | | | | [place] [address] | | | | | | [phone] | | | +--------+ + + + [...] + | [facility] | [address] | [place] [address] | | | PATHOLOGY | [place] | | | + + + + + | [facility] | [facility] | [place] [address] | | | PATHOLOGY | [place] | | | + + + + + documented in this encounter Visit Diagnoses Not on filedocumented in this encounter"
--- OUTSIDE RECORDS SUMMARY | ~2019-10-16 | XMS | Encounter Summary ---
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
--- OUTSIDE RECORDS SUMMARY | ~2019-10-16 | XMS | Encounter Summary ---
Demographics + + + | Address | [address] | | | [place] [address] | + + + | Home Phone [...] Rd | Urologist) | | | | [facility] | [place], [place] | | | | | and [place], | [address] | | | | | [facility] | [phone] | | | | | [place], [place] | | | | | | [address] | | | | | | [phone] | | | +--------+ + + + [...]
--- OUTSIDE RECORDS SUMMARY | ~2019-10-16 | XMS | Encounter Summary ---
Demographics + + + | Address | [address] | | | [place] [address] | + + + | Home Phone [...] Providers + +------+ + | Care Director Trust Name | Role | Phone | + [...] | | | [facility] | [place], [place] | Bypass Surgery November | | | | [address] | [address] | 2003; | | | | [address] | [phone] | Hypothyroidism; | | | | [facility] | | Essential | | | | Physician's | | hypertension 401.9; | | | | Pavilion [place], | | Iron Deficiency | | | | [place] [address] | | | | | | [phone] | | | +--------+---------+ + + + [...] (Ciprofloxacin) Tramadol Morphine IM ( only in [facility] [...] 300 mg) by oral route once daily ebkqegqogh-hwvpbonnpjvub-xaznteen (FIORICET) 50-325-40 mg Oral Tablet take 2 [...]
--- OUTSIDE RECORDS SUMMARY | ~2019-10-16 | XMS | Encounter Summary ---
Demographics + + + | Address | [address] | | | [place] [address] | + + + | Home Phone [...] Providers + +------+ + | Care Television News Anchor Name | Role | Phone | [...] + + | 10/18/ | Telephone | [facility] | Ulysses Genao MD | Appointment (MRI) | | 2014 | | OTOLARYNGOLOGY [address] | [address] [facility] | | | | | [address] [facility] [address] | [address] [place], | | | | | [place] | [place] [address] | | | | | [address] | [phone] | | | | | [phone] | | | +--------+ + + + [...] Petrona | | | | | | [facility] [address] | | | | | | [place] [address] | | | | | | [phone] | | | | | | | | +--------+ + + + + | 12/20/ | Office | Audiology | Elisabet Munson MS | | | 2019 | Visit | | [facility] | | | | | | [address] | | | | | | [place] [address] | | | | | | [phone] | | | | | | | | +--------+ + + + + | 12/20/ | Office | Otolaryngology | Ulysses Genao MD | | | 2020 | Visit | | [address] [facility] | | | | | | [address] [place], | | | | | | [place] [address] | | | | | | [phone] | | | | | | | | +--------+ + + + + documented as of this encounter Visit Diagnoses Not on filedocumented in this encounter"
--- OUTSIDE RECORDS SUMMARY | ~2019-10-16 | XMS | Encounter Summary ---
Demographics + + + | Address | [address] | | | [place] [address] | + + + | Home Phone [...] Team Providers + +------+ + | Care Electroplating Worker Name | Role | Phone | [...] | | | | Clinical Nutrition | [place], [place] | | | | | [address] | [address] | | | | | Loop Mailcode: OPC5 | [phone] | | | | | Outpatient Clinic | | | | | | [facility] | | | | | | [place] [address] | | | | | | [phone] | | | +--------+ + + + [...] + | [facility] | [address] | [place] [address] | | | PATHOLOGY | [place] [place] | | | + + + + + | [facility] | [facility] | [place] [address] | | | PATHOLOGY | [place] [place] | | | + + + + + documented in this encounter Visit Diagnoses Not on filedocumented in this encounter"
--- OUTSIDE RECORDS SUMMARY | ~2019-10-16 | XMS | Encounter Summary ---
Demographics + + + | Address | [address] | | | [place] [address] | + + + | Home Phone [...] Providers + +------+ + | Care Manager In Training Name | Role | Phone | [...] | | | | | | | [facility] | | | | | | | [facility] and | | | | | | | Healing, | | | | | | | [address] | | | | | | | [place], [place] | | | | | | | [address] | | | | | | | Phone: | | | | | | | [phone] | | | | | | | Fax: | | | | | | | [phone] | +--------+--------+ + + + + Encounter Details +--------+---------+ + + + | Date | Type | Department | Care Team | Description | +--------+---------+ + + + | 01/10/ | Office | Digestive Health | Chris Padgett, | Status post | | 2009 | Visit | Center [address] | [address] | bariatric surgery | | | | Ave Mailcode: CH4S | [address] | (Primary Dx) | | | | [facility] | [place], [place] | | | | | and [place], | [address] | | | | | [facility] | [phone] | | | | | Floor [place], [place] | | | | | | [address] | | | | | | [phone] | | | +--------+---------+ + + + [...] and I asked her to see a supervisor hospitality house where she lives. Will obtain CBC and [...]
--- OUTSIDE RECORDS SUMMARY | ~2019-10-16 | XMS | Encounter Summary ---
Demographics + + + | Address | [address] | | | [place] [address] | + + + | Home Phone [...] Providers + +------+ + | Care Building Surveyor Name | Role | Phone | [...] | | | | | Encounter | [place] | | | | | for | [address] | [address] | | | | | long-term | | Phone: | | | | | (current) | | [phone] | | | | | use of other | | Fax: | | | | | medications | | [phone] | | | | | LBP (low [...] 08/09/ | Office | [facility] | Lukasz Charles, | Major depressive | | 2013 | Visit | [address] | PhD [address] | disorder, recurrent | | | | Mailcode: CH15P | [place], [place] | episode, moderate | | | | [facility] for [facility] | [address] | ([facility]) (Primary Dx); | | | | and Healing, | [phone] | LBP (low back pain); | | | | | | Fibromyalgia; | | | | Floor [place], [place] | | Adjustment disorder | | | | [address] | | with anxiety | | | | [phone] | | | +--------+---------+ + + + [...] gives her a lot of motivation. Diagnosis: [place] I: 1. (296.32) Major depressive disorder, recurrent, moderate. 2. (309.24) Adjustment disorder with anxiety. [place] II: Deferred [place] III: abdominal pain, migraine headache, low back pain, fibromyalgia. [place] IV: low finances [place] V: GAF 55-60 Plan: return in 1 month. Check mood, pain, activity, stress management. Ask about any ch anges at home, taking care of her own self, sleeping. Continue cognitive/behavioral therapy . Total time spent with patient was approximately 45 minutes. LUKASZ CHARLES PHD [facility] [address] [place] [address] And [facility], [address] [place] [address] documented in this en counter Plan of [...]
--- OUTSIDE RECORDS SUMMARY | ~2019-10-16 | XMS | Encounter Summary ---
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 Diagnosis: [place] I: 1. (296.32) Major depressive disorder, recurrent, moderate. 2. (309.24) Adjustment disorder with anxiety. 3. 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 [place] II: Deferred [place] III: abdominal pain, migraine headache, low back pain. [place] [facility] IV: low finances [place] V: GAF 55-60 Plan: Return in 2 weeks. Check niece's visit, pacing, relaxation, activity, distraction. Contin ue cognitive/behavioral therapy. Total time spent with patient was approximately 45 minutes. LUKASZ CHARLES PHD [facility] [address] [facility], [address] [place] [address] documented in this encount er Plan of [...] | | | ([facility]) Left Knee | | [...]
--- OUTSIDE RECORDS SUMMARY | ~2019-10-16 | XMS | Encounter Summary ---
Demographics + + + | Address | [address] | | | [place] [address] | + + + | Home Phone [...] Providers + +------+ + | Care Restaurant Server Name | Role | Phone | [...] as of this encounter Progress Notes Interface, Geriatric Social Worker In - 01/11/2005 6:26 PM PDT Referred [...] blindness. History was obtained from the patient, [facility] medical records, and two magnetic [...] any point. She has been seen her watershed program manager in [facility], Dr. Lc Renteria, who by her [...] and fibromyalgia. SOCIAL HISTORY: Patient lives in [facility] with her eldest son. She supports [...] acute distress. She does have a right-sided Cuban crutch which she uses to enter and [...] biceps, triceps, wrist extensors, finger extensors, hand vice president sales and marketing, hip flexors and extensors, and ankle, plantar, and dorsiflexors as well as knee flexors and extensors. There is no pronator drift. Reflexes are 2+ and symmetrical at the biceps, triceps, brachioradialis, patellar, and ankle regions. Toes are downgoing to plantar stimulation. Light touch and tuning fork is within normal limits in the lower extremities. Mrfwxb-ob-wljo and fine finger movements are within normal [...] Amin M.D., Neurophthalmology cc: CRYSTAL CARTER M.D. [facility] [address] [facility]. [facility] [id number] signed by Interface, Geriatric Social Worker In at 2004 6:26 PM PDTdocumented in this encounter Plan of Treatment Not on filedocumented as of this encounter Visit Diagnoses Not on filedocumented in this encounter"
--- OUTSIDE RECORDS SUMMARY | ~2019-10-16 | XMS | Encounter Summary ---
Demographics + + + | Address | [address] | | | [place] [address] | + + + | Home Phone [...] Providers + +------+ + | Care English Composition Instructor Name | Role | Phone | [...] | | escu | [address] | [place] [address] | | | | | Procedures | [place], | Phone: | | | | | OFFICE VISIT | [place] | [phone] | | | | | REGULAR | [address] | Fax: | | | | | | Phone: | [phone] | | | | | | [phone] | | | | | | | Fax: | | | | | | | [phone] | | +--------+--------+ + + + + Encounter Details +--------+---------+ + + + | Date | Type | Department | Care Team | Description | +--------+---------+ + + + | 12/07/ | Office | [facility] | Ulysses Dsouza MD | BPPV (benign | | 2015 | Visit | OTOLARYNGOLOGY [address] | [address] [place] | paroxysmal | | | | [address] | [address] [place], | positional vertigo), | | | | [place] | [place] [address] | left (Primary Dx); | | | | [address] | [phone] | Vertigo of central | | | | [phone] | | origin, left | +--------+---------+ + [...] - 12/07/2014 1:48 PM PDT [facility] OTOLARYNGOLOGY [address] [facility] [address] OFFICE NOTE ULYSSES DSOUZA MD Patient: BELINDA MEEHAN Admitting: MR #: [id number] LOC: PT TYPE: Adm Date: 12/07/2014 : 1960 DATE OF VISIT: 12/07/2014. The patient is having a tremendous problem with her balance. At times she gets a spinning type sensation, other times she just tends to fall down and recently she has developed a w rist drop on the right arm. She has seen an orthopedist who put her in a splint. The [facility] ent has completed an MRI [...] there is a question of a [facility] involvement. The patient would repeatedly ask the [...] 12/07/2014 13:48:42 Transcribed on 12/08/2014 04:46:49 by [facility] job# [id number] Confirmation #: [id number] signed by Ulysses Dsouza MD at 12/08/2014 8:52 AM Ulysses Arnold MD - 12/07/2014 1:43 PM PDTSee dictation #[id number] signed by Dmitriy Dsouza MD at 12/07/2014 [...] | | | | | | [place] [address] | | | | | | [phone] | | | | | | | | +--------+ + + + + | 12/20/ | Office | Audiology | Elisabet Munson MS | | | 2019 | Visit | | [facility] [address] [place] | | | | | | [place] [address] | | | | | | [phone] | | | | | | | | +--------+ + + + + | 12/20/ | Office | Otolaryngology | Ulysses Dsouza MD | | | 2019 | Visit | | [address] | | | | | | [address] [place], | | | | | | [place] [address] | | | | | | [phone] | | | | | | | | +--------+ + + + + documented as of this encounter Visit Diagnoses + + | Diagnosis | + + | BPPV (benign paroxysmal positional vertigo), left - Primary | + + | Vertigo of central origin, left | + + documented in this encounter
--- OUTSIDE RECORDS SUMMARY | ~2019-10-16 | XMS | Encounter Summary ---
Demographics + + + | Address | [address] | | | [place] [address] | + + + | Home Phone [...] Team Providers + +------+ + | Care Strings Teacher Name | Role | Phone | [...] as of this encounter Discharge Summaries Interface, Electronic Prepress Operator In - 01/12/2005 6:32 AM PDTAdmission [...] M.D., D.M.D. Chris Padgett M.D. CLAIRE/carolynn A [id number] cc: documente d in this encounter Plan of Treatment Not on filedocumented as of this encounter Visit Diagnoses Not on filedocumented in this encounter"
--- OUTSIDE RECORDS SUMMARY | ~2019-10-16 | XMS | Encounter Summary ---
Demographics + + + | Address | [address] | | | [place] [address] | + + + | Home Phone [...] Providers + +------+ + | Care Link Trainer Maintenance Man Name | Role | Phone | [...] + + | 12/28/ | Telephone | [facility] | Alanis, | Results, Imaging | | 2017 | | MEDICINE [address] | MD Petrona | | | | | [facility] | [address] [place] [address] | | | | | [place] [address] | [place] [address] | | | | | [phone] | [phone] | | | | | | | [...] | | | | | [place] [address] | | | | | | [phone] | | | | | | | | +--------+ + + + + | 12/20/ | Office | Audiology | Elisabet Munson MS | | | 2019 | Visit | | [facility] [address] [place] | | | | | | [place], [place] [address] | | | | | | [phone] | | | | | | | | +--------+ + + + + | 12/20/ | Office | Otolaryngology | Ulysses Genao MD | | | 2019 | Visit | | [address] | | | | | | [address] [place], | | | | | | [place] [address] | | | | | | [phone] | | | | | | | | +--------+ + + + + documented as of this encounter Visit Diagnoses Not on filedocumented in this encounter"
--- OUTSIDE RECORDS SUMMARY | ~2019-10-16 | XMS | Encounter Summary ---
Demographics + + + | Address | [address] | | | [place] [address] | + + + | Home Phone [...] Providers + +------+ + | Care Project Planner Name | Role | Phone | [...] | disorder, | [address] | [address] | | | | | not | [address] | Ave | | | | | elsewhere | [place], [place] | [place], [place] | | | | | classified | [address] | [address] | | | | | Procedures | | Phone: | | | | | MD | | [phone] | | | | | PSYCHOTHERPY | | Fax: | | | | | , OFFICE | | [phone] | | | | | ([phone]) | | | +--------+--------+ + + + + Encounter Details +--------+---------+ + + + | Date | Type | Department | Care Team | Description | +--------+---------+ + + + | 07/15/ | Office | [facility] at [facility] | Lukasz Charles, | Major Depressive | | 2006 | Visit | [address] | PhD [address] | Disorder, Recurrent | | | | Mailcode: [id number] | [place], [place] | Episode, Moderate | | | | [facility] | [address] | ([facility]); Cervical | | | | and Healing, | [phone] | Spondylosis without | | | | Building | | Myelopathy; Migraine | | | | Floor [place], [place] | | Headache; | | | | [address] | | Adjustment Disorder | | | | [phone] | | with Anxiety | +--------+---------+ + [...] She appears to have good insight. Diagnosis: Applegate I: 1. (296.32) Major depressive disorder, recurrent, moderate. 2. (309.24) Adjustment disorder with anxiety. 3. 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 Applegate II: Deferred Applegate III: abdominal pain, migraine headache, low back pain. Applegate IV: low finances Applegate V: GAF 50 Plan: Return in 2 weeks. Check relaxation and activity. Check mood. Continue cognitive/behavio ral therapy. Total time spent with patient was approximately 50 minutes. LUKASZ CHARLES PHD [facility] [address] [place] [address] And [facility], [address] [place] [address] documented in this [facility] Plan of Treatment + + +--------+ [...] | ([facility]) Cervical | | | | | | Spondylosis without | | | | | | Myelopathy Migraine | | | | | | Headache | | | | | | Adjustment Disorder | | | | | | with Anxiety | | + + +--------+ + + | MD BIOFEEDBACK | Procedures | Routin | Cervical [...]
--- OUTSIDE RECORDS SUMMARY | ~2019-10-16 | XMS | Encounter Summary ---
Demographics + + + | Address | [address] | | | [place] [address] | + + + | Home Phone [...] Team Providers + +------+ + | Care Quarantine Officer Name | Role | Phone | [...] + | 01/14/ | Refill | [facility] | Alanis, | Medication Refill | | 2017 | | MEDICINE [address] [place] [address] | MD Petrona | | | | | [facility] | [address] [place] [address] | | | | | [place] [address] | [place] [address] | | | | | [phone] | [phone] | | | | | | | [...] | | | | | [place] [address] | | | | | | [phone] | | | | | | | | +--------+ + + + + | 12/20/ | Office | Audiology | DarioElisabet ramires MS | | | 2019 | Visit | | [facility] [address] [place] | | | | | | [place], [place] [address] | | | | | | [phone] | | | | | | | | +--------+ + + + + | 12/20/ | Office | Otolaryngology | Ulysses Genao MD | | | 2019 | Visit | | [address] | | | | | | [address] [place], | | | | | | [place] [address] | | | | | | [phone] | | | | | | | | +--------+ + + + + documented as of this encounter Visit Diagnoses Not on filedocumented in this encounter"
--- OUTSIDE RECORDS SUMMARY | ~2019-10-16 | XMS | Encounter Summary ---
Demographics + + + | Address | [address] | | | [place] [address] | + + + | Home Phone [...] Team Providers + +------+ + | Care Apprentice Lineman Third Step Name | Role | Phone | + [...] + | 09/21/ | Refill | [facility] | Alanis, | Medication Refill | | 2019 | | MEDICINE [address] | MD [place] | | | | | [facility] | [address] [place] [address] | | | | | [place] [address] | [place] [address] | | | | | [phone] | [phone] | | | | | | | [...] | | | | | [place] [address] | | | | | | [phone] | | | | | | | | +--------+ + + + + | 12/20/ | Office | Audiology | DarioElisabet ramires MS | | | 2019 | Visit | | [facility] [address] [place] | | | | | | [place], [place] [address] | | | | | | [phone] | | | | | | | | +--------+ + + + + | 12/20/ | Office | Otolaryngology | Ulysses Genao MD | | | 2019 | Visit | | [address] | | | | | | [address] [place], | | | | | | [place] [address] | | | | | | [phone] | | | | | | | | +--------+ + + + + documented as of this encounter Visit Diagnoses Not on filedocumented in this encounter"
--- OUTSIDE RECORDS SUMMARY | ~2019-10-16 | XMS | Encounter Summary ---
Demographics + + + | Address | [address] | | | [place] [address] | + + + | Home Phone [...] Providers + +------+ + | Care Manager Diesel Name | Role | Phone | + +------+ + | Petrona Thapa | PCP | | | MD | | | + +------+ + Encounter Details +--------+ + + + + | Date | Type | Department | Care Team | Description | +--------+ + + + + | 09/06/ | Abstract | [facility] | Provider, | | | 2018 | | GASTROENTEROLOGY | MD Colin [address] | | | | | [address] [facility] | Sulma Kovacs. | | | | | [address] [place] | [place] [address] | | | | | [address] | | | | | | [phone] | | | +--------+ + + + [...] | | | | | [place] [address] | | | | | | [phone] | | | | | | | | +--------+ + + + + | 12/20/ | Office | Audiology | Elisabet Munson MS | | 2019 | Visit | | [facility] [address] | | | | | | [facility] [place] | | | | | | [place] [address] | | | | | | [phone] | | | | | | | | +--------+ + + + + | 12/20/ | Office | Otolaryngology | Ulysses Genao MD | | | 2019 | Visit | | [address] [facility] | | | | | | [address] [place], | | | | | | [place] [address] | | | | | | [phone] | | | | | | | [...]
--- OUTSIDE RECORDS SUMMARY | ~2019-10-16 | XMS | Encounter Summary ---
Demographics + + + | Address | [address] | | | [place] [address] | + + + | Home Phone [...] Providers + +------+ + | Care Employee Health Nurse Name | Role | Phone | [...] + | 03/02/ | Telephone | [facility] | Alanis, | Results, Imaging | | 2017 | | MEDICINE [address] | MD [place]ron[place] | | | | | [facility] | [address] [place] [address] | | | | | [place] [address] | [place] [address] | | | | | [phone] | [phone] | | | | | | | [...] | | | | | [place] [address] | | | | | | [phone] | | | | | | | | +--------+ + + + + | 12/20/ | Office | Audiology | Elisabet Munson MS | | | 2019 | Visit | | [facility] [address] | [address] [place] | | | | | | [place], [place] [address] | | | | | | [phone] | | | | | | | | +--------+ + + + + | 12/20/ | Office | Otolaryngology | Ulysses Genao MD | | | 2019 | Visit | | [address] | | | | | | [address] [place], | | | | | | [place] [address] | | | | | | [phone] | | | | | | | | +--------+ + + + + documented as of this encounter Visit Diagnoses Not on filedocumented in this encounter"
--- OUTSIDE RECORDS SUMMARY | ~2019-10-16 | XMS | Encounter Summary ---
Demographics + + + | Address | [address] | | | [place] [address] | + + + | Home Phone [...] Providers + +------+ + | Care Senior Civil Engineer Name | Role | Phone | [...] + | 12/10/ | Office | [facility] | Alanis, | Elevated liver | | 2018 | Visit | MEDICINE [address] | MD [place] | enzymes (Primary | | | | [address] [place] | [address] [facility] | Dx); Limb cramps; | | | | [place] [address] | [place] [address] | Physical | | | | [phone] | [phone] | deconditioning; | | | | | [...] Refill Abdominal Pain Spasms legs and hips [facility] Belinda Meehan is a 57 y.o. [...] is interested in doing physical therapy in [place], pool therapy has helped in the pas [...] (See Comments) Confused and questionable for seizures Kcpstssdne-Xxkb-Qpxrzbrb Cephalexin Hives Duloxetine Migraines and nausea Ketorolac Hives Morphine Swelling Ropinirole Hcl Hives Tramadol Hcl Nausea Only Gvznmqzvyo-Jqgd-Fbgmitaq Hives and Rash Ciprofloxacin Hives and Rash [...] Note: Parts of this documentwere created using [employer] speech recognition software. As a r esult, [...] | | | | [address] [facility] [address] | | | | | | [place] [address] | | | | | | [phone] | | | | | | | | +--------+ + + + + | 12/20/ | Office | Audiology | Elisabet Munson MS | | | 2019 | Visit | | [facility] [address] | | | [address] [place] | | | | | | [place] [address] | | | | | | [phone] | | | | | | | | +--------+ + + + + | 12/20/ | Office | Otolaryngology | Ulysses Genao MD | | | 2019 | Visit | | [address] | | | | | | [address] [place], | | | | | | [place] [address] | | | | | | [phone] | | | | | | | [...] [address] | [place] | [phone] | | [facility] | | [address] | | | - LABORATORY | | [...] + | [address] | [address] | [place] | [phone] | | [facility] | | [address] | | | - LABORATORY | | [...] test | | | | | | ([id number]). | | | | + + + + + + + + | Specimen | + + | Blood | + + + + + | Narrative | Performed At | + + + | Performed at: 01 - [facility] [address] [address] [place] [address], | REFERENCE LAB | | [place], [place] [address] Buggy Runner: Bandar Gan MD, Phone: | [facility] | | [phone] | | + + + + + + + + | Performing | Address | City/State/Zipcode | Phone Number | | Organization | | | | + + + + + | REFERENCE LAB | [address] | [place], [place] | [phone] | | [facility] | [place] | [address] | | + + + + + [...] | | First dose on [facility] 10/15/17 at 1215 | | | [...]
--- OUTSIDE RECORDS SUMMARY | ~2019-10-16 | XMS | Encounter Summary ---
Demographics + + + | Address | [address] | | | [place] [address] | + + + | Home Phone [...] Providers + +------+ + | Care Radio Television Technical Director Name | Role | Phone | [...] [address] | | | | | [facility] | [place], [place] | | | | | [address] | [address] | | | | | [address] | [phone] | | | | | [facility] | | | | | | Physician's | | | | | | Pavilion [place], | | | | | | [place] [address] | | | | | | [phone] | | | +--------+--------+ + + + [...]
--- OUTSIDE RECORDS SUMMARY | ~2019-10-16 | XMS | Encounter Summary ---
Demographics + + + | Address | [address] | | | [place] [address] | + + + | Home Phone [...] +------+ + | Care Director Of Corporate Real Estate Name | Role | Phone | + [...] of this encounter Progress Notes Interface, Gas Blender In - 01/12/2005 10:09 AM PDT [id number] [facility] Date: 12/25/2004 Clinic: GENERAL [...] will send an emergency supply fax to [facility] at fax #[phone], first 30 pills, oxycodone 5 mg to [...] the current plan. Melisa Thorne / SHARIF [id number] / [id number] / [id number] / [id number] Electronically signed by Kenisha Melton 01-01-2005 04:41:20 PM documented i n this encounter Plan of Treatment Not on filedocumented as of this encounter Visit Diagnoses Not on filedocumented in this encounter"
--- OUTSIDE RECORDS SUMMARY | ~2019-10-16 | XMS | Encounter Summary ---
Demographics + + + | Address | [address] | | | [place] [address] | + + + | Home Phone [...] Providers + +------+ + | Care Principal Statistical Scientist Name | Role | Phone | + +------+ + | Sulaiman Carrera MD | PCP | | + +------+ + Encounter Details +--------+ + + + + | Date | Type | Department | Care Team | Description | +--------+ + + + + | 06/12/ | Telephone | [facility] | Chris Padgett, | | | 2008 | | [place] [address] | [address] [facility] | | | | | Bethanie Mailcode: CH4S | [address] | | | | | [facility] | [place], [place] | | | | | and Healing, | [address] | | | | | [facility] 1, 6th | [phone] | | | | | Floor [place], [place] | | | | | | [address] | | | | | | [phone] | | | +--------+ + + + [...]
--- OUTSIDE RECORDS SUMMARY | ~2019-10-16 | XMS | Encounter Summary ---
Demographics + + + | Address | [address] | | | [place] [address] | + + + | Home Phone [...] Team Providers + +------+ + | Care Brisket Puller Name | Role | Phone | [...] | | | [address] | [address] Phone: | | | | | | [place], | [phone] | | | | | | [place] | Fax: | | | | | | [address] | [phone] | | | | | | Phone: | | | | | | | [phone] | | | | | | | Fax: | | | | | | | [phone] | | +--------+--------+ + + + + [...] Chronic neck pain; | | | | [address] | | Chronic low back | | | | [phone] | | pain; Lumbar | | | [...] of the procedure you must provide a company driver to take you home. For all procedur es it is recommended that someone else drive you home. documented in this encounter Progress Notes Carlos Hsieh MD - 01/04/2015 8:13 AM PDT Carlos Hsieh MD [address] [facility], [address] [place], [place] [id number] FAX: PHYSICAL MEDICINE AND REHABILITATION H&P CHIEF COMPLAINT: Chief Complaint Patient presents with Neck Pain Neck pain that radiates between the shoulder blades and down from there HISTORY OF PRESENT ILLNESS: The patient is a 54 y.o. female being seen today at the [facility] of Dr. Booth for complaints of pain [...] were performed by a Dr. García in [place]. Th e patient is unable to take NSAID's because apparently last time she took them she was black and blue all over. PAST MEDICAL HISTORY: Past Medical History Diagnosis Date Diarrhea Osteoarthritis, generalized Migraine Osteopenia Obesity Syncope Hyperparathyroidism ([facility]) RLS (restless legs syndrome) OLIVER (obstructive sleep apnea) Depression COPD (chronic obstructive pulmonary disease) ([facility]) Fibromyalgia Peripheral neuropathy Chronic pain Benign essential hypertension Rheumatoid arthritis ([facility]) IBS (irritable bowel syndrome) Scoliosis Hypothyroidism Stroke ([facility]) Blind left eye Arthritis Osteoporosis [...] visit. ALLERGIES: Allergies Allergen Reactions Amitriptyline Hcl Yvoklvtxeb-Vcor-Vorycvbq Cephalexin Ciprofloxacin Clarithromycin Clindamycin Hcl Codeine Sulfate [...] has no apparent deficits with short or longwall shearer operator memory. She has appropriate fund of knowledge [...] of the cervical spine next week at [facility]. The patient was informed to contact [...] | | | | | [place] [address] | | | | | | [phone] | | | | | | | | +--------+ + + + + | 12/20/ | Office | Audiology | Elisabet Munson MS | | | 2019 | Visit | | [facility] [address] | | | | | | [address] [place] | | | | | | [place] [address] | | | | | | [phone] | | | | | | | | +--------+ + + + + | 12/20/ | Office | Otolaryngology | Ulysses Genao MD | | | 2020 | Visit | | [address] | | | | | | [address] [place], | | | | | | [place] [address] | | | | | | [phone] | | | | | | | | +--------+ + + + + documented as of this encounter Results [place] ELIANA Lumbar Transforaminal (01/19/2015 12:00 PM PDT) + + | Specimen | + + | | + + + + + | Narrative | Performed At | + + + | 01/19/2015 Bilateral Transforaminal Epidural Steroid Injections | [facility] | | Diagnosis: Lumbar radiculopathy ICD-9 Code 724.4 Belinda Basilio | [facility] | | Shefali presents to the fluoroscopy suite for [facility] | | fluoroscopically-guided bilateral [...] + + | [address] | [address] | [place] | [phone] | | [facility] | | [address] | | | - IMAGING | | [...]
--- OUTSIDE RECORDS SUMMARY | ~2019-10-16 | XMS | Encounter Summary ---
Demographics + + + | Address | [address] | | | [place] [address] | + + + | Home Phone [...] Team Providers + +------+ + | Care Nickel Plant Operator Name | Role | Phone [...] 2007 | Only | [address] | [phone] | | | | | Rd Mailcode: [id number] | | | | | | [place], [place] | | | | | | [address] | | | | | | [phone] | | | +--------+ + + + [...] | + + + + + | [facility] DEPARTMENT OF | [facility] | [place] [address] | | | PATHOLOGY | [address] | | | + + + + + | [place] DEPARTMENT OF | [facility] | [place] [address] | | | PATHOLOGY | [address] | | | + + + + + documented in this encounter Visit Diagnoses Not on filedocumented in this encounter"
--- OUTSIDE RECORDS SUMMARY | ~2019-10-16 | XMS | Encounter Summary ---
Demographics + + + | Address | [address] | | | [place] [address] | + + + | Home Phone [...] Providers + +------+ + | Care Warehouse Team Leader Name | Role | Phone [...] Johnston | | | | | | [place], [place] | [facility] | | | | | | [address] | [id number] | | | | | | | [place], [place] | | | | | | | [address] | | | | | | | Phone: | | | | | | | [phone] | | | | | | | Fax: | | | | | | | [phone] | +--------+--------+ + + + + Encounter Details +--------+---------+ + + + | Date | Type | Department | Care Team | Description | +--------+---------+ + + + | 06/23/ | Office | [facility] Comprehensive | Adrien Smith, | Fibromyalgia | | 2013 | Visit | Pain Center at | [address] [facility] | syndrome 729.1 | | | | [facility] | [facility] [id number] | (Primary Dx); LBP | | | | [address] | [place], [place] | (low back pain); | | | | Mailcode: CH15P | [address] | Chronic Bilateral | | | | [facility] | [phone] | Shoulder Pain; Post | | | | and Healing, | | laminectomy | | | | | | syndrome; Chronic | | | | Floor [place], [place] | | migraine | | | | [address] | | | | | | [phone] | | | +--------+---------+ + + + [...] evaluation of a patient with fibromyalgia, the [facility] Fibromyalgia clinic suggests laboratory screening to i [...] suggests that fibromyalgia patients may have reduced IRRIGATOR opioid receptors (Reji is RE, et al. Decreased central mu-opioid receptor availability in fibromyalgia. J Neurosci . 27(37):96165-0, 2006Feb 24.) and there are no controlled [...] documented in our notes. ADRIEN SMITH MD Senior Benefits Specialist, Comprehensive [facility] Center Irrigator, Pain Medicine Professor, Anesthesiology & Perioperative Medicine Brandon Phipps Md - 06/23/2013 2:21 PM PST [facility] Comprehensive Pain Center Return Visit with Dr. [...] as she has worked with him [facility] This visit can be in [...] before her lumbar surgeries and recently in [place]. She has short-term relief from thes e treatments. I would like her to return to see Dr. Adrien Smith to discuss these treatment options. Consult to [facility] physical therapy: A supervised physical therapy evaluation [...] and a pain drawing which I reviewed. LAY OUT WORKER Brief Pain Inventory: (ten= worst possible pain [...] knee Lumbar fusion 05/2008, ' & ' [id number] with bone spur removals Appendectomy Cholecystectomy section [...] Hives Mainly in the legs Clindamycin Codeine Ewsolpo-Gqdoslfytv-Gor-Caff Balance problems Fioricet W/Codeine (Nsuawclnsz-Newpnoiipd-Tvr-Cod) Keflex (Cephalexin) Morphine IM ( only in [facility]) made gut pain worse 08/27/06: Trial of oral MSIR caused leg swelling Penicillins Sulfa (Sulfonamide Antibiotics) Tramadol Ms. Meehan reports no side effects. The Review of Systems provided by Ms. Meehan and documented by the [facility] was reviewed. Austyn tional comments: 1. BONES, [...] evaluation of a patient with fibromyalgia, the [facility] Fibromyalgia clinic suggests laboratory screening to i [...] suggests that fibromyalgia patients may have reduced IRRIGATOR opioid receptors (Xavi RE, et al. Decreased central mu-opioid receptor availability in fib romyalgia. J Neurosci. 27(37):52579-6, 2006Feb 24.) and there are no controlled [...]
--- OUTSIDE RECORDS SUMMARY | ~2019-10-16 | XMS | Encounter Summary ---
Demographics + + + | Address | [address] | | | [place] [address] | + + + | Home Phone [...] Team Providers + +------+ + | Care Neuropsychiatrist Name | Role | Phone | + [...] + | 08/12/ | Refill | [facility] | Alanis, | Medication Refill | | 2017 | | MEDICINE [address] [place] [address] | MD Petrona | | | | | [facility] | [address] [place] [address] | | | | | [place] [address] | [place] [address] | | | | | [phone] | [phone] | | | | | | | [...] | | | | | [place] [address] | | | | | | [phone] | | | | | | | | +--------+ + + + + | 12/20/ | Office | Audiology | DarioElisabet ramires MS | | | 2019 | Visit | | [facility] [address] | | | | | [address] [place] | | | | | | [place], [place] [address] | | | | | | [phone] | | | | | | | | +--------+ + + + + | 12/20/ | Office | Otolaryngology | Ulysses Genao MD | | | 2019 | Visit | | [address] | | | | | | [address] [place], | | | | | | [place] [address] | | | | | | [phone] | | | | | | | | +--------+ + + + + documented as of this encounter Visit Diagnoses Not on filedocumented in this encounter"
--- OUTSIDE RECORDS SUMMARY | ~2019-10-16 | XMS | Encounter Summary ---
Demographics + + + | Address | [address] | | | [place] [address] | + + + | Home Phone [...] Team Providers + +------+ + | Care Acetaldehyde Converter Operator Name | Role | Phone | [...] + + | 05/04/ | Refill | [facility] | Alanis, | Medication Refill | | 2017 | | MEDICINE [address] [place] [address] | MD Petrona | | | | | [facility] | [address] [place] [address] | | | | | [place] [address] | [place] [address] | | | | | [phone] | [phone] | | | | | | | [...] | | | | | [place] [address] | | | | | | [phone] | | | | | | | | +--------+ + + + + | 12/20/ | Office | Audiology | DarioElisabet ramires MS | | | 2019 | Visit | | [facility] [address] | | | | | [address] [place] | | | | | | [place], [place] [address] | | | | | | [phone] | | | | | | | | +--------+ + + + + | 12/20/ | Office | Otolaryngology | Ulysses Genao MD | | | 2019 | Visit | | [address] | | | | | | [address] [place], | | | | | | [place] [address] | | | | | | [phone] | | | | | | | | +--------+ + + + + documented as of this encounter Visit Diagnoses Not on filedocumented in this encounter"
--- OUTSIDE RECORDS SUMMARY | ~2019-10-16 | XMS | Encounter Summary ---
Demographics + + + | Address | [address] | | | [place] [address] | + + + | Home Phone [...] Providers + +------+ + | Care Pickling Grader Name | Role | Phone | [...] + + | 04/06/ | Telephone | [facility] | Alanis, | Care Coordination | | 2017 | | MEDICINE [address] [place] [address] | MD Petrona | | | | | [facility] | [address] [place] [address] | | | | | [place] [address] | [place] [address] | | | | | [phone] | [phone] | | | | | | | [...] | | | | | [place] [address] | | | | | | [phone] | | | | | | | | +--------+ + + + + | 12/20/ | Office | Audiology | Dariokeyla MS Elisabet | | | 2019 | Visit | | [facility] [address] | | | | | [address] [place] | | | | | | [place] [address] | | | | | | [phone] | | | | | | | | +--------+ + + + + | 12/20/ | Office | Otolaryngology | Ulysses Genao MD | | | 2019 | Visit | | [address] | | | | | | [address] [place], | | | | | | [place] [address] | | | | | | [phone] | | | | | | | | +--------+ + + + + documented as of this encounter Visit Diagnoses Not on filedocumented in this encounter"
--- OUTSIDE RECORDS SUMMARY | ~2019-10-16 | XMS | Encounter Summary ---
Demographics + + + | Address | [address] | | | [place] [address] | + + + | Home Phone [...] Providers + +------+ + | Care Material Control Supervisor Name | Role | Phone [...] Jayce Hartley | | | | | [facility] | [address] [place], | | | | | [address] | [place] [address] | | | | | Mailcode: CH15P | | | | | | [facility] | | | | | | and Healing, | | | | | | Building | | | | | | Floor [place], [place] | | | | | | [address] | | | | | | [phone] | | | +--------+ + + + [...]
--- OUTSIDE RECORDS SUMMARY | ~2019-10-16 | XMS | Encounter Summary ---
Demographics + + + | Address | [address] | | | [place] [address] | + + + | Home Phone [...] Team Providers + +------+ + | Care Newspaper Illustrator Name | Role | Phone | [...] | | | [facility] | [place], [place] | | | | | [address] | [address] | | | | | [address] | [phone] | | | | | [facility] | | | | | | Physician's | | | | | | Pavilion [place], | | | | | | [place] [address] | | | | | | [phone] | | | +--------+ + + + [...]
--- OUTSIDE RECORDS SUMMARY | ~2019-10-16 | XMS | Encounter Summary ---
Demographics + + + | Address | [address] | | | [place] [address] | + + + | Home Phone [...] Providers + +------+ + | Care Trim Technician Name | Role | Phone | [...] + + | 09/02/ | Telephone | [facility] | Alanis, | Paperwork | | 2018 | | MEDICINE [address] [place] [address] | MD Petrona | | | | | [facility] | [address] [place] [address] | | | | | [place] [address] | [place] [address] | | | | | [phone] | [phone] | | | | | | | [...] | | | | | [place] [address] | | | | | | [phone] | | | | | | | | +--------+ + + + + | 12/20/ | Office | Audiology | Elisabet Munson MS | | 2019 | Visit | | [facility] [address] | | | | | | [address] [place] | | | | | | [place] [address] | | | | | | [phone] | | | | | | | | +--------+ + + + + | 12/20/ | Office | Otolaryngology | Ulysses Genao MD | | | 2020 | Visit | | [address] | | | | | | [address] [place], | | | | | | [place] [address] | | | | | | [phone] | | | | | | | | +--------+ + + + + documented as of this encounter Visit Diagnoses Not on filedocumented in this encounter"
--- OUTSIDE RECORDS SUMMARY | ~2019-10-16 | XMS | Encounter Summary ---
Demographics + + + | Address | [address] | | | [place] [address] | + + + | Home Phone [...] Providers + +------+ + | Care Benefits Coordinator Name | Role | Phone | [...] + + | 04/08/ | Telephone | [facility] | Rosi Antonio, | | | 2012 | | Pain Center at | ANP | | | | | [facility] | | | | | | [address] | | | | | | Mailcode: CH15P | | | | | | [facility] | | | | | | and Healing, | | | | | | | | | | | | Floor [place], [place] | | | | | | [address] | | | | | | [phone] | | | +--------+ + + + [...]
--- OUTSIDE RECORDS SUMMARY | ~2019-10-16 | XMS | Encounter Summary ---
Demographics + + + | Address | [address] | | | [place] [address] | + + + | Home Phone [...] Team Providers + +------+ + | Care Apparel Fashion Designer Name | Role | Phone | [...] + + | 05/26/ | Telephone | [facility] | Alanis, | Medication Question | | 2018 | | MEDICINE [address] [place] [address] | MD Petrona | | | | | [facility] | [address] [place] [address] | | | | | [place] [address] | [place] [address] | | | | | [phone] | [phone] | | | | | | | [...] | | | | | [place] [address] | | | | | | [phone] | | | | | | | | +--------+ + + + + | 12/20/ | Office | Audiology | Elisabet Munson MS | | | 2019 | Visit | | [facility] [address] | | | | | [address] [place] | | | | | | [place] [address] | | | | | | [phone] | | | | | | | | +--------+ + + + + | 12/20/ | Office | Otolaryngology | Ulysses Genao MD | | | 2019 | Visit | | [address] | | | | | | [address] [place], | | | | | | [place] [address] | | | | | | [phone] | | | | | | | | +--------+ + + + + documented as of this encounter Visit Diagnoses Not on filedocumented in this encounter"
--- OUTSIDE RECORDS SUMMARY | ~2019-10-16 | XMS | Encounter Summary ---
Demographics + + + | Address | [address] | | | [place] [address] | + + + | Home Phone [...] Providers + +------+ + | Care Oil Field Rig Builder Name | Role | Phone | [...] | ANP | | | | | [facility] | | | | | | [address] | | | | | | Mailcode: CH15P | | | | | | [place] [facility] | | | | | | and Healing, | | | | | | Building | | | | | | Floor [place], [place] | | | | | | [address] | | | | | | [phone] | | | +--------+ + + + [...]
--- OUTSIDE RECORDS SUMMARY | ~2019-10-16 | XMS | Encounter Summary ---
Demographics + + + | Address | [address] | | | [place] [address] | + + + | Home Phone [...] Team Providers + +------+ + | Care Popcorn Machine Operator Name | Role | Phone [...] Rehabilitatio | bilateral | i, | [address] | | | | n | low back | [address] | [place], | | | | | pain with | [address] | [place] [address] | | | | | left-sided | [address] | Phone: | | | | | sciatica | [place], | [phone] | | | | | Muscle spasm | [place] | Fax: | | | | | | [address] | [phone] | | | | | Fibromyalgia | Phone: | | | | | | | [phone] | | | | | | | Fax: | | | | | | | [phone] | | +--------+ + + + + + Reason for Visit + + + | Reason | Comments | + + + | Follow-up | 2 month | + + + Encounter Details +--------+---------+ + + + | Date | Type | Department | Care Team | Description | +--------+---------+ + + + | 05/04/ | Office | [facility] | Alanis, | Chronic bilateral | | 2017 | Visit | MEDICINE [address] | MD Petrona | low back pain with | | | | [address] | [address] [facility] | left-sided sciatica | | | | [place] [address] | [place] [address] | (Primary Dx); Muscle | | | | [phone] | [phone] | spasm; | | | | | [...] also help with symptoms. Date Last Reviewed: 07/29/201519996031-0542 [employer]. [address] [place] [address], [place] [address]. All righ ts reserved. This information is [...] Nonalcoholic hepatosteatosis Obesity Opiate dependence ([facility]) Orthostatic hypotension [place] (obstructive sleep apnea) Osteoarthritis, generalized Osteopenia Osteoporosis Peripheral neuropathy ([facility]) Rheumatoid arthritis ([facility]) Right arm [...] (See Comments) Confused and questionable for seizures Hgqligdqya-Swjz-Qhtkafgo Cephalexin Hives Ketorolac Hives Morphine Swelling Tramadol Hcl Nausea Only Owzvmhecma-Rcgj-Izkslnxy Hives and Rash Ciprofloxacin Hives and Rash [...] back pain with left-sided sciatica - * [facility] Physiatry - [facility] Referral; Future - CBC with Differential; Future - Comprehensive Metabolic Panel; Future - TSH; Future - CK Total; Future - C-Reactive Protein; Future 2. Muscle spasm - * [facility] Physiatry - [facility] Referral; Future - CBC with Differential; Future - Comprehensive Metabolic Panel; Future - TSH; Future - CK Total; Future - C-Reactive Protein; Future - methocarbamol (ROBAXIN) 750 mg tablet; take 1 tablet by mouth twice a day Dispense: 60 t ablet; Refill: 3 3. Fibromyalgia - * [facility] Physiatry - [facility] Referral; Future - CBC with Differential; Future - Comprehensive Metabolic Panel; Future - TSH; Future - CK Total; Future - C-Reactive Protein; Future 4. Left hip pain - XR Hip Left 2-3 Views; Future FOLLOW-UP No Follow-up on file. Note: Parts of this documentwere created using [email or web address] speech recognition software. As a r esult, [...] | | | | | [place] [address] | | | | | | [phone] | | | | | | | | +--------+ + + + + | 12/20/ | Office | Audiology | Elisabet Munson MS | | | 2019 | Visit | | [facility] [address] | | | | | | [address] [place] [address] [place] | | | | | | [place] [address] | | | | | | [phone] | | | | | | | | +--------+ + + + + | 12/20/ | Office | Otolaryngology | Ulysses Genao MD | | | 2020 | Visit | | [address] | | | | | | [address] [place], | | | | | | [place] [address] | | | | | | [phone] | | | | | | | [...] CRP | 0.48 | <8.00 mg/L | GILDAE | | | | | [...] [address] | [place] | [phone] | | [facility] | | [address] | | | - LABORATORY | | | | + + + + + CK Total (05/04/2017 3:42 PM PST) + +-------+ + + + | Component | Value | Ref Range | Performed | Pathologist | | | | | At | Signature | + +-------+ + + + | CK TOTAL | 168 | 22 - 269 U/L | [facility] | | | | [...] + | [facility] | [address] | [place] | [phone] | | [facility] | | [address] | | | - LABORATORY | | [...] [address] | [place] | [phone] | | [facility] | | [address] | | | - LABORATORY | | [...] | | | | | mg/dL | [facility] | | | | | | MEDICAL | | | | | | CENTER - | | | | | | LABORATORY | | + + + + + + | eGFR if not | >60Comment: GLOMERULAR | >=60 | [facility] | | | | FILTRATION | mL/min/1.73m2 | [facility] | | | RWANDAN | RATE,ESTIMATED | | MEDICAL | | | | mL/min/1.83c1Sgif than | | CENTER - | | [...] | | | | | mg/dL | [facility] | | | | | | [...] + | [facility] | [address] | [place] | [phone] | | [facility] | | [address] | | | - LABORATORY | | [...] + | [address] | [address] | [place] | [phone] | | [facility] | | [address] | | | - LABORATORY | | [...]
--- OUTSIDE RECORDS SUMMARY | ~2019-10-16 | XMS | Encounter Summary ---
Demographics + + + | Address | [address] | | | [place] [address] | + + + | Home Phone [...] Providers + +------+ + | Care Test Rack Operator Name | Role | Phone | + +------+ + | Pedrito Guiterrez MD | PCP | | + +------+ [...] | + +--------+ + + + | [facility], | | 05/12/2006 | | | | INTRALUMINAL | | | | | + +--------+ + + + documented in this encounter Visit Diagnoses Not on filedocumented in this encounter"
--- OUTSIDE RECORDS SUMMARY | ~2019-10-16 | XMS | Encounter Summary ---
Demographics + + + | Address | [address] | | | [place] [address] | + + + | Home Phone [...] +------+ + | Care Director Of Corporate Responsibility Name | Role | Phone | + [...] | | | | | Encounter | [place], [place] | [place] | | | | | for | [address] | [address] | | | | | long-term | | Phone: | | | | | (current) | | [phone] | | | | | use of other | | Fax: | | | | | medications | | [phone] | | | | | LBP (low [...] 08/09/ | Office | Pain Center at [facility] | Lukasz Charles, | Major depressive | | 2013 | Visit | [address] | PhD [address] | disorder, recurrent | | | | Mailcode: CH15P | [place], [place] | episode, moderate | | | | [facility] for [facility] | [address] | ([facility]) (Primary Dx); | | | | and Healing, | [phone] | LBP (low back pain); | | | | | | Fibromyalgia; | | | | Floor [place], [place] | | Adjustment disorder | | | | [address] | | with anxiety | | | | [phone] | | | +--------+---------+ + + + [...] gives her a lot of motivation. Diagnosis: [place] I: 1. (296.32) Major depressive disorder, recurrent, moderate. 2. (309.24) Adjustment disorder with anxiety. [place] II: Deferred [place] III: abdominal pain, migraine headache, low back pain, fibromyalgia. [place] IV: low finances [place] V: GAF 55-60 Plan: return in 1 month. Check mood, pain, activity, stress management. Ask about any ch anges at home, taking care of her own self, sleeping. Continue cognitive/behavioral therapy . Total time spent with patient was approximately 45 minutes. LUKASZ CHARLES PHD [facility] [address] [place] [address] And [facility], [address] [place] [address] documented in this en counter Plan of [...]
--- OUTSIDE RECORDS SUMMARY | ~2019-10-16 | XMS | Encounter Summary ---
Demographics + + + | Address | [address] | | | [place] [address] | + + + | Home Phone [...] Providers + +------+ + | Care Health Associate Name | Role | Phone | [...] + + | 03/10/ | Telephone | [facility] | Alanis, | Grief/ Loss | | 2019 | | MEDICINE [address] [place] [address] | MD Petrona | | | | | [facility] | [address] [place] [address] | | | | | [place] [address] | [place] [address] | | | | | [phone] | [phone] | | | | | | | [...] | | | | | [place] [address] | | | | | | [phone] | | | | | | | | +--------+ + + + + | 12/20/ | Office | Audiology | Elisabet Munson MS | | 2019 | Visit | | [facility] [address] | | | | [address] [place] | | | | | | [place] [address] | | | | | | [phone] | | | | | | | | +--------+ + + + + | 12/20/ | Office | Otolaryngology | Ulysses Genao MD | | | 2020 | Visit | | [address] | | | | | | [address] [place], | | | | | | [place] [address] | | | | | | [phone] | | | | | | | | +--------+ + + + + documented as of this encounter Visit Diagnoses Not on filedocumented in this encounter"
--- OUTSIDE RECORDS SUMMARY | ~2019-10-16 | XMS | Encounter Summary ---
Demographics + + + | Address | [address] | | | [place] [address] | + + + | Home Phone [...] Providers + +------+ + | Care Radiology Equipment Servicer Name | Role | Phone | + [...] + + | 07/16/ | Telephone | [facility] | Alanis, | Results, Imaging | | 2017 | | MEDICINE [address] | MD Petrona | | | | | [facility] | [address] [place] [address] | | | | | [place] [address] | [place] [address] | | | | | [phone] | [phone] | | | | | | | [...] | | | | | [place] [address] | | | | | | [phone] | | | | | | | | +--------+ + + + + | 12/20/ | Office | Audiology | Elisabet Munson MS | | | 2019 | Visit | | [facility] [address] | | | | [address] [place] | | | | | | [place], [place] [address] | | | | | | [phone] | | | | | | | | +--------+ + + + + | 12/20/ | Office | Otolaryngology | Ulysses Genao MD | | | 2019 | Visit | | [address] | | | | | | [address] [place], | | | | | | [place] [address] | | | | | | [phone] | | | | | | | | +--------+ + + + + documented as of this encounter Visit Diagnoses Not on filedocumented in this encounter"
--- OUTSIDE RECORDS SUMMARY | ~2019-10-16 | XMS | Encounter Summary ---
Demographics + + + | Address | [address] | | | [place] [address] | + + + | Home Phone [...] Providers + +------+ + | Care Warehouse Director Name | Role | Phone | [...]
--- OUTSIDE RECORDS SUMMARY | ~2019-10-16 | XMS | Encounter Summary ---
Demographics + + + | Address | [address] | | | [place] [address] | + + + | Home Phone [...] Providers + +------+ + | Care Lime Kiln Worker Name | Role | Phone | [...] Rehabilitatio | syndrome of | i, | [place] | | | | n | right | [place] | [place], | | | | | shoulder | , MD [address] | [place] [address] | | | | | Procedures | [address] | Phone: | | | | | PT | [place], | [phone] | | | | | | [place] | Fax: | | | | | | [address] | [phone] | | | | | | Phone: | | | | | | | [phone] | | | | | | | Fax: | | | | | | | [phone] | | +--------+ + + + + [...] + + | 09/22/ | Office | [facility] [place] | Alanis, | Impingement syndrome | | 2018 | Visit | MEDICINE [address] | MD [place] | of right shoulder | | | | Street [place] | [address] [place] | (Primary Dx); Chest | | | | [place] [address] | [place] [address] | pain, unspecified | | | | [phone] | [phone] | type | | | | | [...] spasm Myalgia Nonalcoholic hepatosteatosis Obesity Opioid dependence ([facility]) Orthostatic hypotension OLIVER (obstructive sleep apnea) Osteoarthritis, generalized Osteopenia Osteoporosis Peripheral neuropathy Rheumatoid arthritis (HCC) Right arm pain 01/04/2015 RLS (restless legs syndrome) S/P lumbar fusion 01/04/2015 Scoliosis Sleep apnea Spondylosis with myelopathy, lumbar region Stroke ([facility]) Syncope Tremor Type II or unspecified [...] (See Comments) Confused and questionable for seizures Gzjmzbcvyr-Cwox-Sinmrkfj Cephalexin Hives Duloxetine Migraines and nausea Ketorolac Hives Morphine Swelling Ropinirole Hcl Hives Tramadol Hcl Nausea Only Wqklqvtdfc-Sssa-Jmrutzbc Hives and Rash Ciprofloxacin Hives and Rash [...] Right 2 + Vw; Future - * [facility] Physical Therapy - AMB Referral; Future 2. Chest pain, unspecified type - nitroglycerin (NITROSTAT) 0.4 mg SL tablet; Place 1 tablet under the tongue every 5 minut es as needed for Chest pain. Dispense: 25 tablet; Refill: 3 FOLLOW-UP Return in about 6 months (around 03/24/2018). Note: Parts of this documentwere created using [employer] speech recognition software. As a r esult, [...] | | | | | [place] [address] | | | | | | [phone] | | | | | | | | +--------+ + + + + | 12/20/ | Office | Audiology | Elisabet Munson MS | | 2019 | Visit | | [facility] [address] | | | | | | [place] | | | | | | [place] [address] | | | | | | [phone] | | | | | | | | +--------+ + + + + | 12/20/ | Office | Otolaryngology | Ulysses Genao MD | | | 2019 | Visit | | [address] [place] | | | | | | [address] [place], | | | | | | [place] [address] | | | | | | [phone] | | | | | | | [...]
--- OUTSIDE RECORDS SUMMARY | ~2019-10-16 | XMS | Encounter Summary ---
Demographics + + + | Address | [address] | | | [place] [address] | + + + | Home Phone [...] Team Providers + +------+ + | Care Float Tender Name | Role | Phone | [...] as of this encounter Progress Notes Interface, Operations Support Manager In - 10/03/2006 2:33 AM PDT [id number] GEOVANNI SKELTON J [id number] Clinic Date: 09/14/2006 Clinic: Rheumatology Belinda Meehan [...] every 3 days changed; Trileptal 225 mg; Lankin 10/325; and Actonel. Objective: Weight is 214, [...] to this. Caitlin Rivera M.S., F.N.P. / [id number] / [id number] / [id number] / [id number] cc: Pedrito Gutierrez M.D. [address] [facility] [address], [place] [address] [facility] Electronically signed by Caitlin Rivera 10-02-2006 09:24:29 AM documented in this encounter Plan of Treatment Not on filedocumented as of this encounter Visit Diagnoses Not on filedocumented in this encounter"
--- OUTSIDE RECORDS SUMMARY | ~2019-10-16 | XMS | Encounter Summary ---
Demographics + + + | Address | [address] | | | [place] [address] | + + + | Home Phone [...] Providers + +------+ + | Care Credit Intern Name | Role | Phone | [...] [id number] | | | | | | [place], [place] | | | | | | [address] | | | | | | [phone] | | | +--------+ + + + [...]
--- OUTSIDE RECORDS SUMMARY | ~2019-10-16 | XMS | Encounter Summary ---
Demographics + + + | Address | [address] | | | [place] [address] | + + + | Home Phone [...] Team Providers + +------+ + | Care Bucket Chucker Name | Role | Phone | + [...] | | | | | | [address] [place], [place] | | | | | | [address] | | | | | | [phone] | | | +--------+ + + + [...]
--- OUTSIDE RECORDS SUMMARY | ~2019-10-16 | XMS | Encounter Summary ---
Demographics + + + | Address | [address] | | | [place] [address] | + + + | Home Phone [...] Team Providers + +------+ + | Care Programming Specialist Name | Role | Phone | [...] + + | 09/03/ | Telephone | [facility] | Alanis, | Fall; Hip Pain | | 2018 | | MEDICINE [address] [place] [address] | MD [place] | | | | | [facility] | [address] [place] [address] | | | | | [place] [address] | [place] [address] | | | | | [phone] | [phone] | | | | | | | [...] | | | | | [place] [address] | | | | | | [phone] | | | | | | | | +--------+ + + + + | 12/20/ | Office | Audiology | Dariokeyla CeasarMS rafa | | | 2019 | Visit | | [facility] [address] | | | | | [address] [place] [address] [place] | | | | | | [place], [place] [address] | | | | | | [phone] | | | | | | | | +--------+ + + + + | 12/20/ | Office | Otolaryngology | Ulysses Genao MD | | | 2019 | Visit | | [address] [place] | | | | | | [address] [place], | | | | | | [place] [address] | | | | | | [phone] | | | | | | | | +--------+ + + + + documented as of this encounter Visit Diagnoses Not on filedocumented in this encounter"
--- OUTSIDE RECORDS SUMMARY | ~2019-10-16 | XMS | Encounter Summary ---
Demographics + + + | Address | [address] | | | [place] [address] | + + + | Home Phone [...] Providers + +------+ + | Care Dial Equipment Engineer Name | Role | Phone | [...] [place] | | | | | | [place], [place] | [facility] | | | | | | [address] | [id number] | | | | | | | [place], [place] | | | | | | | [address] | | | | | | | Phone: | | | | | | | [phone] | | | | | | | Fax: | | | | | | | [phone] | +--------+--------+ + + + + Encounter Details +--------+---------+ + + + | Date | Type | Department | Care Team | Description | +--------+---------+ + + + | 06/23/ | Office | [facility] Comprehensive | Adrien Smith, | Fibromyalgia | | 2013 | Visit | Pain Center at | [address] [facility] | syndrome 729.1 | | | | [facility] | [facility] [id number] | (Primary Dx); LBP | | | | [address] | [place], [place] | (low back pain); | | | | Mailcode: CH15P | [address] | Chronic Bilateral | | | | [facility] | [phone] | Shoulder Pain; Post | | | | and Healing, | | laminectomy | | | | | | syndrome; Chronic | | | | Floor [place], [place] | | migraine | | | | [address] | | | | | | [phone] | | | +--------+---------+ + + + [...] evaluation of a patient with fibromyalgia, the [facility] Fibromyalgia clinic suggests laboratory screening to i [...] suggests that fibromyalgia patients may have reduced CONSTRUCTION CODE ADMINISTRATOR opioid receptors (Reji is RE, et al. Decreased central mu-opioid receptor availability in fibromyalgia. J Neurosci . 27(37):87297-9, 2006Feb 24.) and there are no controlled [...] documented in our notes. ADRIEN SMITH MD Passport Application Examiner, [facility] Irish Moss Operator, Pain Medicine Professor, Anesthesiology & Perioperative Medicine Brandon Phipps Md - 06/23/2013 2:21 PM PST [facility] Return Visit with Dr. [...] before her lumbar surgeries and recently in [place]. She has short-term relief from thes e treatments. I would like her to return to see Dr. Adrien Smith to discuss these treatment options. Consult to [facility] physical therapy: A supervised physical therapy evaluation [...] has been treated at the [facility] for back pain with [...] Overview Note: Surgery 05/15/08 Dr Ricky Garnett [place] JE[place] karlos to get operative reports Osteopenia [...] and a pain drawing which I reviewed. 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 Meehan reports no side effects. The Review of Systems provided by Ms. Meehan and documented by the [facility] was reviewed. Austyn tional comments: 1. BONES, [...] evaluation of a patient with fibromyalgia, the [facility] Fibromyalgia clinic suggests laboratory screening to i [...] suggests that fibromyalgia patients may have reduced CONSTRUCTION CODE ADMINISTRATOR opioid receptors (Xavi RE, et al. Decreased central mu-opioid receptor availability in fib romyalgia. J Neurosci. 27(37):39973-9, 2006Feb 24.) and there are no controlled [...]
--- OUTSIDE RECORDS SUMMARY | ~2019-10-16 | XMS | Encounter Summary ---
Demographics + + + | Address | [address] | | | [place] [address] | + + + | Home Phone [...] Team Providers + +------+ + | Care Chart Picker Name | Role | Phone | [...] | | | | | for | [address] | [address] | | | | | long-term | | Phone: | | | | | (current) | | [phone] | | | | | use of other | | Fax: | | | | | medications | | [phone] | | | | | LBP (low [...] | Diagnoses | Paco, | Fili Pt Gum Cook | | | | Therapy | Myalgia and | Rosi T, ANP | Ch[address] | | | | | myositis, | [address] | | | | | unspecified | [address] | Mailcode: | | | | | LBP (low | [place], [place] | [facility] | | | | | back pain) | [address] | for [facility] | | | | | Chronic | | and Healing, | | | | | shoulder | | [address] | | | | | pain Muscle | | [place], [place] | | | | | strain | | [address] | | | | | Radicular | | Phone: | | | | | pain in left | | [phone] | | | | | arm Neck [...] | | pain | [place], [place] | [place], [place] | | | | | | [address] | [address] | | | | | | Phone: | | | | | | | [phone] | | | | | | | Fax: | | | | | | | [phone] | | +--------+--------+ + + + + Encounter Details +--------+---------+ + + + | Date | Type | Department | Care Team | Description | +--------+---------+ + + + | 04/05/ | Office | [facility] | Rosi Antonio, | LBP (low back pain) | | 2012 | Visit | Pain Center at | ANP | (Primary Dx); | | | | [facility] | | Fibromyalgia | | | | [address] | | syndrome 729.1; | | | | Mailcode: CH15P | | Encounter for | | | | [place] [facility] | | Long-Term (Current) | | | | and Healing, | | Use of Opioids; | | | | | | Chronic Bilateral | | | | Floor [place], [place] | | Shoulder Pain; | | | | [address] | | Muscle Strain hips; | | | | [phone] | | Radicular pain in | | [...] adjusted upwards every 3 - 7 days. Isbaell Lee was provided written instructions, we had [...] to discuss these treatment options. Consult to [facility] physical therapy: A supervised physical therapy [...] you have questions or concerns. [facility] [address] Mail Code: [place] [address] documented in this encounter Progress Notes Rosi Antonio ANP - 04/05/2013 9:28 AM PDTFormatting of this note might be different fro m the original. [facility] Office Visit 04/05/2013 Belinda Meehan; ; : 1960 Ms. Meehan was referred for pain management consultation by Taqueria Raman NP [address] [place] [address] Chief Complaint Patient presents with New patient [...] to taper off gabapentin 2. Order for [facility] neurology Dr. Taniya Guerrero if falls [...] Dr. 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 As part of today's visit the [facility] new patient questionnaire was [...] you expect from your visits to the [facility] ? Don't know BP [...] Overview Note: Surgery 05/15/08 Dr Ricky Garnett [facility] to get operative reports Osteopenia [...] before her lumbar surgeries and recently in [place]. She has short-term relief from the se treatments. I would like her to return to see Dr. Murali Montero to discuss these treatment options. Consult to [facility] physical therapy: A supervised physical therapy [...] appointment for [address] Murali Monteor to discuss treatment options: either epidural steroid injections or spinal cord stimulator option. We suggested that Ms. Meehan discuss our consultation findings with her PCP, Sulaiman Whitlock MD and other involved health care providers. Thank you for this referral, it is my privilege to be part of [facility] health care team. Pl ease free to contact me at any time if you have questions or concerns. I spent 30 minutes with the patient of which more than 50% was spent dlcwk-qb-eskl in [facility] pain questionnaire, medical record, consultation, discussion, addressing questions and counselling/education. [facility] Callum Kovacs Mail Code: [place] [id number] mith, Maris Lopez MA - 04/05/2013 8:25 [...]
--- OUTSIDE RECORDS SUMMARY | ~2019-10-16 | XMS | Encounter Summary ---
Demographics + + + | Address | [address] | | | [place] [address] | + + + | Home Phone [...] Team Providers + +------+ + | Care Washing Machine Installer Name | Role | Phone | [...] [place] | | | | | | [address] | | | +--------+ + + + [...]
--- OUTSIDE RECORDS SUMMARY | ~2019-10-16 | XMS | Encounter Summary ---
Demographics + + + | Address | [address] | | | [place] [address] | + + + | Home Phone [...] Providers + +------+ + | Care Yarn Sizer Name | Role | Phone | + [...] + + | 04/08/ | Telephone | [facility] Division of | Carlos Arreola, | Swelling | | 2005 | | Gastroenterology/Hep | [address] | (ANDREEA) | | | | atology [address] | | | | | [address] | [place] [address] | | | | | Mailcode: PV310 | [phone] | | | | | [facility] | | | | | | [address] | | | | | | [place], [place] | | | | | | [address] | | | | | | [phone] | | | +--------+ + + + [...]
--- OUTSIDE RECORDS SUMMARY | ~2019-10-16 | XMS | Encounter Summary ---
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 Overall she has made some good changes. [...] natalie ing an effort to improve. Diagnosis: Keldron I: 1. (296.32) Major depressive disorder, recurrent, moderate. 2. (309.24) Adjustment disorder with anxiety. 3. 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 Keldron II: Deferred Keldron III: abdominal pain, migraine headache, low back pain. Keldron IV: low finances Keldron V: GAF 50 Plan: Return in 2 weeks. Check pacing, relaxation, activity, distraction. Check managing Pain.. . book. Continue cognitive/behavioral therapy. Total time spent with patient was approximately 45 minutes. LUKASZ CHARLES PHD [facility] [address] [place] [address] [facility] [address] [place] [address] documented in this encount er Plan of [...] | | | ([facility]) Spondylosis | | | [...] | Major depressive disorder, recurrent episode, moderate ([facility]) Major depressive | | [...]
--- OUTSIDE RECORDS SUMMARY | ~2019-10-16 | XMS | Encounter Summary ---
Demographics + + + | Address | [address] | | | [place] [address] | + + + | Home Phone [...] Providers + +------+ + | Care Managing Manager Name | Role | Phone | [...] n | Peterson Mailcode: RPB07 | [address] | | | | | [place], [place] | [place], [place] | | | | | [address] | [address] | | | | | [phone] | [phone] | | | | | | | [...]
--- OUTSIDE RECORDS SUMMARY | ~2019-10-16 | XMS | Encounter Summary ---
Demographics + + + | Address | [address] | | | [place] [address] | + + + | Home Phone [...] Providers + +------+ + | Care Mushroom Cutter Name | Role | Phone | [...] [place] | | | | | | [address] | | | | | | [phone] | | | +--------+ + + + [...] | | | | | [place] [address] | | | | | | [phone] | | | | | | | | +--------+ + + + + | 12/20/ | Office | Audiology | Elisabet Munson MS | | 2019 | Visit | | [address] | | | | | | [facility] [address] [place] | | | | | | [place] [address] | | | | | | [phone] | | | | | | | | +--------+ + + + + | 12/20/ | Office | Otolaryngology | Ulysses Genao MD | | | 2020 | Visit | | [address] | | | | | | [address] [place], | | | | | | [place] [address] | | | | | | [phone] | | | | | | | | +--------+ + + + + documented as of this encounter Visit Diagnoses Not on filedocumented in this encounter"
--- OUTSIDE RECORDS SUMMARY | ~2019-10-16 | XMS | Encounter Summary ---
Demographics + + + | Address | [address] | | | [place] [address] | + + + | Home Phone [...] Providers + +------+ + | Care Manager Supply Chain Planning Name | Role | Phone | + [...] | Management | Chronic | Taqueria Strong, QUARANTINE INSPECTOR | Rosi Armijo, ANP | | | | | neck pain | [address] | [address] | | | | | Low back | [place] | [place] | | | | | pain | [place] | [place], [place] | | | | | | [address] | [address] | | | | | | Phone: | | | | | | | [phone] | | | | | | | Fax: | | | | | | | [phone] | | +--------+--------+ + + + + Encounter Details +--------+---------+ + + + | Date | Type | Department | Care Team | Description | +--------+---------+ + + + | 08/09/ | Office | [facility] Comprehensive | Rosi Antonio, | Fibromyalgia | | 2013 | Visit | Pain Center at | ANP | syndrome 729.1 | | | [facility] | | (Primary Dx); Major | | | | [address] | | depressive disorder, | | | | Mailcode: CH15P | | recurrent episode, | | | | [facility] | | moderate ([facility]); | | | | and Healing, | | Adjustment disorder | | | | Building | | with anxiety; LBP | | | | Floor [place], [place] | | (low back pain); | | | | [address] | | Osteopenia; Chronic | | | | [phone] | | Bilateral Shoulder | | | [...] al. Diabetes Care. 28(1):89-94, 2004; Anca M, ANIMAL CARE SUPERVISOR Drugs. [address] 1:25-30; discussion 45-6, [...] might be different fro m the original. [facility] Comprehensive Pain Center Return Visit 08/09/2013 Belinda [...] never going to her local hospital in [place] for any medical evaluations. Belinda is very [...] Overview Note: Surgery 05/15/08 Dr Ricky Garnett [place] JEY karlos to get operative reports Osteopenia [...] and a pain drawing which I reviewed. [facility] Brief Pain Inventory: (ten= worst possible [...] regions, she notes pain in her right lutheran, bilateral shoul crista muscles, left elbow, entire [...] right knee Lumbar fusion 05/2008, ' & L5-N2ljufpu with bone spur removals Appendectomy Cholecystectomy section [...] Hives Mainly in the legs Clindamycin Codeine Dxfqnps-Dgfiwcfwla-Qdy-Caff Balance problems Fioricet W/Codeine (Lnirnkhgyw-Sbbbbkeoqi-Ewa-Cod) Keflex (Cephalexin) Morphine IM ( only in [facility]) made gut pain worse 08/27/06: Trial of oral MSIR caused leg swelling Penicillins Sulfa (Sulfonamide Antibiotics) Tramadol Ms. Meehan reports no side effects. The Review of Systems provided by Ms. Meehan and documented by the [facility] was reviewed. This data was entered by [...] al. Diabetes Care. 28(1):89-94, 2004; Anca M, ANIMAL CARE SUPERVISOR Drugs. [address] 1:25-30; discussion 45-6, [...] of which more than 50% was spent oxxsx-mp-swvn in r eviewing pain questionnaire, medical record, [...] | | + +---------+ + + | [facility] DEPARTMENT OF | | | [...]
--- OUTSIDE RECORDS SUMMARY | ~2019-10-16 | XMS | Encounter Summary ---
Demographics + + + | Address | [address] | | | [place] [address] | + + + | Home Phone [...] Team Providers + +------+ + | Care Miter Grinder Operator Name | Role | Phone | [...] + | 04/25/ | Telephone | [facility] | Alanis, | Paperwork; Pre-Op | | 2018 | | MEDICINE [address] [place] [address] | MD [place] | | | | | [facility] | [address] [place] [address] | | | | | [place] [address] | [place] [address] | | | | | [phone] | [phone] | | | | | | | [...] | | | | | [place] [address] | | | | | | [phone] | | | | | | | | +--------+ + + + + | 12/20/ | Office | Audiology | Elisabet Munson MS | | | 2019 | Visit | | [facility] [address] | | | | [address] [place] | | | | | | [place] [address] | | | | | | [phone] | | | | | | | | +--------+ + + + + | 12/20/ | Office | Otolaryngology | Ulysses Genao MD | | | 2019 | Visit | | [address] | | | | | | [address] [place], | | | | | | [place] [address] | | | | | | [phone] | | | | | | | | +--------+ + + + + documented as of this encounter Visit Diagnoses Not on filedocumented in this encounter"
--- OUTSIDE RECORDS SUMMARY | ~2019-10-16 | XMS | Encounter Summary ---
Demographics + + + | Address | [address] | | | [place] [address] | + + + | Home Phone [...] Providers + +------+ + | Care Advertising Copywriter Name | Role | Phone | + [...] [address] | | | | | [facility] | [place], [place] | | | | | [address] | [address] | | | | | [address] | [phone] | | | | | [facility] | | | | | | Physician's | | | | | | [facility] [place], | | | | | | [place] [address] | | | | | | [phone] | | | +--------+--------+ + + + [...]
--- OUTSIDE RECORDS SUMMARY | ~2019-10-16 | XMS | Encounter Summary ---
Demographics + + + | Address | [address] | | | [place] [address] | + + + | Home Phone [...] Team Providers + +------+ + | Care Rack Loader Name | Role | Phone | [...] + + | 09/09/ | Telephone | [facility] | Alanis, | Phone Attempt | | 2019 | | MEDICINE [address] [place] [address] | MD Petrona | | | | | [facility] | [address] [place] [address] | | | | | [place] [address] | [place] [address] | | | | | [phone] | [phone] | | | | | | | [...] | | | | | [place] [address] | | | | | | [phone] | | | | | | | | +--------+ + + + + | 12/20/ | Office | Audiology | Elisabet Munson MS | | | 2019 | Visit | | [facility] [address] | | | | [address] [place] | | | | | | [place] [address] | | | | | | [phone] | | | | | | | | +--------+ + + + + | 12/20/ | Office | Otolaryngology | Ulysses Genao MD | | | 2019 | Visit | | [address] | | | | | | [address] [place], | | | | | | [place] [address] | | | | | | [phone] | | | | | | | | +--------+ + + + + documented as of this encounter Visit Diagnoses Not on filedocumented in this encounter"
--- OUTSIDE RECORDS SUMMARY | ~2019-10-16 | XMS | Encounter Summary ---
Demographics + + + | Address | [address] | | | [place] [address] | + + + | Home Phone [...] Team Providers + +------+ + | Care Orchestra Teacher Name | Role | Phone | [...] [address] | | | | | [place], [place] | [place], [place] | | | | | [address] | [address] | | | | | [phone] | [phone] | | | | | | | [...] | | + +---------+ + + | [facility] DEPARTMENT OF | | | | | RADIOLOGY | | | | + +---------+ + + documented in this encounter Visit Diagnoses Not on filedocumented in this encounter"
--- OUTSIDE RECORDS SUMMARY | ~2019-10-16 | XMS | Encounter Summary ---
Demographics + + + | Address | [address] | | | [place] [address] | + + + | Home Phone [...] + | 02/17/ | Refill | [facility] | Alanis, | Medication Refill | | 2018 | | MEDICINE [address] [place] [address] | MD Petrona | | | | | [facility] | [address] [place] [address] | | | | | [place] [address] | [place] [address] | | | | | [phone] | [phone] | | | | | | | [...] | | | | | [place] [address] | | | | | | [phone] | | | | | | | | +--------+ + + + + | 12/20/ | Office | Audiology | Elisabet MunsonMS | | | 2019 | Visit | | [facility] [address] | | | | | [address] [place] | | | | | | [place] [address] | | | | | | [phone] | | | | | | | | +--------+ + + + + | 12/20/ | Office | Otolaryngology | Ulysses Genao MD | | | 2019 | Visit | | [address] | | | | | | [address] [place], | | | | | | [place] [address] | | | | | | [phone] | | | | | | | | +--------+ + + + + documented as of this encounter Visit Diagnoses + + | Diagnosis | + + | Chest pain, unspecified type | + + documented in this encounter"
--- OUTSIDE RECORDS SUMMARY | ~2019-10-16 | XMS | Encounter Summary ---
Demographics + + + | Address | [address] | | | [place] [address] | + + + | Home Phone [...] + +------+ + | Care Lay Out Machine Operator Name | Role | Phone [...] | | 2006 | | [facility] at [employer] | [address] | | | | | for [facility] and | [place], [place] | | | | | Healing [address] | [address] | | | | | Ave Mailcode: | [phone] | | | | | CH12A [facility] | | | | | | Health and Healing, | | | | | | [facility] | | | | | | [place], [place] | | | | | | [address] | | | | | | [phone] | | | +--------+ + + + [...]
--- OUTSIDE RECORDS SUMMARY | ~2019-10-16 | XMS | Encounter Summary ---
Demographics + + + | Address | [address] | | | [place] [address] | + + + | Home Phone [...] Providers + +------+ + | Care Cane Cutter Name | Role | Phone | + +------+ + | Sulaiman Carrera MD | PCP | | + +------+ + Encounter Details +--------+ + + + + | Date | Type | Department | Care Team | Description | +--------+ + + + + | 06/30/ | Telephone | [facility] | Lukasz Ogden, | | | 2013 | | [address] | PhD [address] | | | | | Mailcode: [id number] | [place], [place] | | | | | [facility] | [address] | | | | | and Healing, | [phone] | | | | | Building | | | | | | Floor [place], [place] | | | | | | [address] | | | | | | [phone] | | | +--------+ + + + [...]
--- OUTSIDE RECORDS SUMMARY | ~2019-10-16 | XMS | Encounter Summary ---
Demographics + + + | Address | [address] | | | [place] [address] | + + + | Home Phone [...] Providers + +------+ + | Care Group Sales Coordinator Name | Role | Phone | [...] [address] | | | | | [facility] | [place], [place] | | | | | [address] | [address] | | | | | [address] | [phone] | | | | | [facility] | | | | | | Physician's | | | | | | Pavilion [place], | | | | | | [place] [address] | | | | | | [phone] | | | +--------+--------+ + + + [...]
--- OUTSIDE RECORDS SUMMARY | ~2019-10-16 | XMS | Encounter Summary ---
Demographics + + + | Address | [address] | | | [place] [address] | + + + | Home Phone [...] Providers + +------+ + | Care Service Station Cashier Name | Role | Phone | + +------+ + | Petrona Thapa | PCP | | | MD | | | + +------+ + Encounter Details +--------+ + + + + | Date | Type | Department | Care Team | Description | +--------+ + + + + | 07/09/ | Abstract | [facility] | Alanis, | | | 2018 | | MEDICINE [address] | MD Petrona | | | | | [address] [facility] | [address] [facility] | | | | | [place] [address] | [place] [address] | | | | | [phone] | [phone] | | | | | | | [...] | | | | | [place] [address] | | | | | | [phone] | | | | | | | | +--------+ + + + + | 12/20/ | Office | Audiology | Elisabet Munson MS | | | 2019 | Visit | | [facility] [address] | | | | | | [address] [place] | | | | | | [place] [address] | | | | | | [phone] | | | | | | | | +--------+ + + + + | 12/20/ | Office | Otolaryngology | Ulysses Genao MD | | | 2019 | Visit | | [address] | | | | | | [address] [place], | | | | | | [place] [address] | | | | | | [phone] | | | | | | | [...]
--- OUTSIDE RECORDS SUMMARY | ~2019-10-16 | XMS | Encounter Summary ---
Demographics + + + | Address | [address] | | | [place] [address] | + + + | Home Phone [...] Providers + +------+ + | Care Candy Wrapping Machine Operator Name | Role | Phone [...] | | | | | | [place], [place] | | | | | | [address] | | | | | | [phone] | | | +--------+ + + + [...]
--- OUTSIDE RECORDS SUMMARY | ~2019-10-16 | XMS | Encounter Summary ---
Demographics + + + | Address | [address] | | | [place] [address] | + + + | Home Phone [...] Team Providers + +------+ + | Care Chucking Lathe Operator Name | Role | Phone [...] + | 04/29/ | Telephone | [facility] | Alanis, | Medication Refill | | 2017 | | MEDICINE [address] [place] [address] | MD Petrona | Assistance | | | | [facility] | [address] [place] [address] | | | | | [place] [address] | [place] [address] | | | | | [phone] | [phone] | | | | | | | [...] | | | | | [place] [address] | | | | | | [phone] | | | | | | | | +--------+ + + + + | 12/20/ | Office | Audiology | Elisabet Munson MS | | | 2019 | Visit | | [facility] [address] | | | | | [address] [place] | | | | | | [place] [address] | | | | | | [phone] | | | | | | | | +--------+ + + + + | 12/20/ | Office | Otolaryngology | Ulysses Genao MD | | | 2019 | Visit | | [address] | | | | | | [address] [place], | | | | | | [place] [address] | | | | | | [phone] | | | | | | | | +--------+ + + + + documented as of this encounter Visit Diagnoses Not on filedocumented in this encounter"
--- OUTSIDE RECORDS SUMMARY | ~2019-10-16 | XMS | Encounter Summary ---
[...] Providers + +------+ + | Care Brazing Machine Tender Name | Role | Phone [...] [facility] | Alanis, | Injections | | 2019 | | MEDICINE [address] [place] [address] | MD Petrona | | | | | [facility] | [address] [place] [address] | | | | | [place] [address] | [place] [address] | | | | | [phone] | [phone] | | | | | | | [...] | | | | | [place] [address] | | | | | | [phone] | | | | | | | | +--------+ + + + + | 12/20/ | Office | Audiology | Elisabet Munson MS | | | 2019 | Visit | | [facility] [address] | | | | | [address] [place] | | | | | | [place] [address] | | | | | | [phone] | | | | | | | | +--------+ + + + + | 12/20/ | Office | Otolaryngology | Ulysses Genao MD | | | 2020 | Visit | | [address] | | | | | | [address] [place], | | | | | | [place] [address] | | | | | | [phone] | | | | | | | | +--------+ + + + + documented as of this encounter Visit Diagnoses Not on filedocumented in this encounter"
--- OUTSIDE RECORDS SUMMARY | ~2019-10-16 | XMS | Encounter Summary ---
Demographics + + + | Address | [address] | | | [place] [address] | + + + | Home Phone [...] Team Providers + +------+ + | Care Cotton Sampler Name | Role | Phone | + +------+ + | Sulaiman Carrera MD | PCP | | + +------+ + Encounter Details +--------+ + + + + | Date | Type | Department | Care Team | Description | +--------+ + + + + | 02/23/ | Ancillary | Registration 3181 | Beto Meeks MD | | | 2006 | Registratio | [facility] | [address] | | | | n | [place] Mailcode: [id number] | [place], [place] | | | | | [place], [place] | [address] | | | | | [address] | [phone] | | | | | [phone] | | | +--------+ + + + [...] + + | [facility] | [address] | [place] [address] | | | LABORATORY | | | [...] [address] | | | | | | [facility], [facility] [place], [place] | | | | | | [address] | | | | | | [phone] | | | | | Sincere [...] [facility] | [address] | [place], [place] | | | [facility] | | [address] | | + + + + + documented in this encounter Visit Diagnoses Not on filedocumented in this encounter"
--- OUTSIDE RECORDS SUMMARY | ~2019-10-16 | XMS | Encounter Summary ---
Demographics + + + | Address | [address] | | | [place] [address] | + + + | Home Phone [...] Providers + +------+ + | Care Juvenile Court Liaison Name | Role | Phone | [...] + + | 10/07/ | Telephone | [facility] | Alanis, | Hip Pain | | 2017 | | MEDICINE [address] [place] [address] | MD Petrona | | | | | [facility] | [address] [place] [address] | | | | | [place] [address] | [place] [address] | | | | | [phone] | [phone] | | | | | | | [...] | | | | | [place] [address] | | | | | | [phone] | | | | | | | | +--------+ + + + + | 12/20/ | Office | Audiology | Elisabet Munson MS | | 2019 | Visit | | [facility] | | | | | | [address] [place] | | | | | | [place] [address] | | | | | | [phone] | | | | | | | | +--------+ + + + + | 12/20/ | Office | Otolaryngology | Ulysses Genao MD | | | 2020 | Visit | | [address] | | | | | | [address] [place], | | | | | | [place] [address] | | | | | | [phone] | | | | | | | | +--------+ + + + + documented as of this encounter Visit Diagnoses Not on filedocumented in this encounter"
--- OUTSIDE RECORDS SUMMARY | ~2019-10-16 | XMS | Encounter Summary ---
Demographics + + + | Address | [address] | | | [place] [address] | + + + | Home Phone [...] +------+ + | Care Commercial Real Estate Associate Name | Role | Phone | [...] + + | 12/10/ | Telephone | [facility] | Alanis, | Lab Results | | 2017 | | MEDICINE [address] [place] [address] | MD Petrona | | | | | [facility] | [address] [place] [address] | | | | | [place] [address] | [place] [address] | | | | | [phone] | [phone] | | | | | | | [...] | | | | | [place] [address] | | | | | | [phone] | | | | | | | | +--------+ + + + + | 12/20/ | Office | Audiology | Elisabet Munson MS | | 2019 | Visit | | [facility] [address] | | | | | [address] [place] | | | | | | [place] [address] | | | | | | [phone] | | | | | | | | +--------+ + + + + | 12/20/ | Office | Otolaryngology | Ulysses Genao MD | | | 2020 | Visit | | [address] | | | | | | [address] [place], | | | | | | [place] [address] | | | | | | [phone] | | | | | | | | +--------+ + + + + documented as of this encounter Visit Diagnoses Not on filedocumented in this encounter"
--- OUTSIDE RECORDS SUMMARY | ~2019-10-16 | XMS | Encounter Summary ---
Demographics + + + | Address | [address] | | | [place] [address] | + + + | Home Phone [...] Team Providers + +------+ + | Care Headlight Adjuster Name | Role | Phone | + +------+ + | Maria Esther Cintron MD | PCP | | + +------+ + Encounter Details +--------+ + + + + | Date | Type | Department | Care Team | Description | +--------+ + + + + | 10/27/ | Telephone | Digestive Health | Chris Padgett, | | | 2008 | | [place] [address] | [address] [facility] | | | | | Bethanie Mailcode: CH4S | [address] | | | | | Center for [facility] | [place], [place] | | | | | and Healing, | [address] | | | | | Building , 6th | [phone] | | | | | Floor [place], [place] | | | | | | [address] | | | | | | [phone] | | | +--------+ + + + [...]
--- OUTSIDE RECORDS SUMMARY | ~2019-10-16 | XMS | Encounter Summary ---
Demographics + + + | Address | [address] | | | [place] [address] | + + + | Home Phone [...] Providers + +------+ + | Care Environmental Field Services Technician Name | Role | Phone | + +------+ + | Pedrito Gutierrez MD | PCP | | + +------+ + Encounter Details +--------+---------+ + + + | Date | Type | Department | Care Team | Description | +--------+---------+ + + + | 02/01/ | Office | Digestive Health | Chris Padgett, | Status Post | | 2006 | Visit | [place] [address] | [address] | Bariatric Surgery; | | | | Ave Mailcode: CH4S | [address] | Follow-Up | | | | [facility] | [place], [place] | Examination | | | | and Healing, | [address] | Following Surgery | | | | Building | [phone] | | | | | Floor [place], [place] | | | | | | [address] | | | | | | [phone] | | | +--------+---------+ + + + [...] history of intermittent abdominal pain [facility] for [facility] mo f/u evaluation with [...]
--- OUTSIDE RECORDS SUMMARY | ~2019-10-16 | XMS | Encounter Summary ---
Demographics + + + | Address | [address] | | | [place] [address] | + + + | Home Phone [...] Providers + +------+ + | Care Blueprint Machine Operator Name | Role | Phone [...] | Pain | Diagnoses | Miracle, | Cloud, | | | | Management | LBP (low | NIHARIKA Jean | Lukasz Rhodes, PhD | | | | | back pain) | [address] | [address] | | | | | DJD | [address] | Ave | | | | | (degenerativ | [place], [place] | [place] | | | | | e joint | [address] | [address] | | | | | disease) of | | Phone: | | | | | knee Knee | | [phone] | | | | | pain Major | | Fax: | | | | | depressive | | [phone] | | | | | disorder, | [...] 04/13/ | Office | [facility] | Lukasz Charles, | Major Depressive | | 2007 | Visit | [address] | PhD [address] | Disorder, Recurrent | | | | Mailcode: 15P | [place], [place] | Episode, Mild (HCC); | | | | [place] for [facility] | [address] | LBP (Low Back | | | | and Healing, | [phone] | Pain); Migraine | | | | | | Headache; Adjustment | | | | Floor [place], [place] | | Disorder with | | | | [address] | | Anxiety | | | | [phone] | | | +--------+---------+ + + + [...] plans for her surgical recovery period. Diagnosis: [place] I: 1. (296.31) Major depressive disorder, recurrent, mild. 2. (309.24) Adjustment disorder with anxiety. 3. 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 [place] II: Deferred [place] III: abdominal pain, migraine headache, low back pain. [place] IV: low finances [place] V: GAF 55-60 Plan: return with next medical follow-up appointment. Check mood, pain, relaxation, activ ity, distraction, eating. Ask about headaches, fainting, surgery. Continue cognitive/behav ioral therapy. Total time spent with patient was approximately 45 minutes. LUKASZ CHARLES PHD [facility] [address] [facility] [address] [address] documented in this encount er Plan of Treatment + + +--------+ + + | Name | Type | Priori | Associated Diagnoses | Order Schedule | | | | ty | | | + + +--------+ + + | MS PSYCHOTHERPY, | Procedures | Routin | Major Depressive | Ordered: 04/13/2008 | | OFFICE (43-09) | | e | Disorder, Recurrent | [...]
--- OUTSIDE RECORDS SUMMARY | ~2019-10-16 | XMS | Encounter Summary ---
Demographics + + + | Address | [address] | | | [place] [address] | + + + | Home Phone [...] Team Providers + +------+ + | Care Fisheries Management Biologist Name | Role | Phone | [...] + | 03/03/ | Telephone | [facility] | Alanis, | Medication Question | | 2017 | | MEDICINE [address] [place] [address] | MD Petrona | | | | | [facility] | [address] [place] [address] | | | | | [place] [address] | [place] [address] | | | | | [phone] | [phone] | | | | | | | [...] | | | | | [place] [address] | | | | | | [phone] | | | | | | | | +--------+ + + + + | 12/20/ | Office | Audiology | Elisabet Munson MS | | | 2019 | Visit | | [facility] [address] | | | | [address] [place] | | | | | | [place] [address] | | | | | | [phone] | | | | | | | | +--------+ + + + + | 12/20/ | Office | Otolaryngology | Ulysses Genao MD | | | 2019 | Visit | | [address] | | | | | | [address] [place], | | | | | | [place] [address] | | | | | | [phone] | | | | | | | | +--------+ + + + + documented as of this encounter Visit Diagnoses Not on filedocumented in this encounter"
--- OUTSIDE RECORDS SUMMARY | ~2019-10-16 | XMS | Encounter Summary ---
Demographics + + + | Address | [address] | | | [place] [address] | + + + | Home Phone [...] Team Providers + +------+ + | Care Unishear Operator Name | Role | Phone | [...] + + | 04/19/ | Telephone | [facility] | Alanis, | Lab Results | | 2019 | | MEDICINE [address] [place] [address] | MD Petrona | | | | | [facility] | [address] [place] [address] | | | | | [place] [address] | [place] [address] | | | | | [phone] | [phone] | | | | | | | [...] | | [facility] [address] | | | | | | [place] [address] | | | | | | [phone] | | | | | | | | +--------+ + + + + | 12/20/ | Office | Audiology | Elisabet Munson MS | | 2019 | Visit | | [facility] [address] | | | | [address] [place] | | | | | | [place] [address] | | | | | | [phone] | | | | | | | | +--------+ + + + + | 12/20/ | Office | Otolaryngology | Ulysses Genao MD | | | 2020 | Visit | | [address] | | | | | | [address] [place], | | | | | | [place] [address] | | | | | | [phone] | | | | | | | | +--------+ + + + + documented as of this encounter Visit Diagnoses Not on filedocumented in this encounter"
--- OUTSIDE RECORDS SUMMARY | ~2019-10-16 | XMS | Encounter Summary ---
Demographics + + + | Address | [address] | | | [place] [address] | + + + | Home Phone [...] Team Providers + +------+ + | Care Messenger Office Name | Role | Phone | [...] [address] | | | | | | [place], [place] | | | | | | [address] | | | | | | [phone] | | | +--------+ + + + [...]
--- OUTSIDE RECORDS SUMMARY | ~2019-10-16 | XMS | Encounter Summary ---
Demographics + + + | Address | [address] | | | [place] [address] | + + + | Home Phone [...] Providers + +------+ + | Care Tap Builder Name | Role | Phone | [...] + + | 07/30/ | Office | [facility] Comprehensive | Delfina Molina, | Cervical Spondylosis | | 2006 | Visit | Pain Center at | ANP | without Myelopathy | | | | [facility] | | (Primary Dx); Right | | | | [address] | | shoulder rotator | | | | Mailcode: CH15P | | cuff strain; | | | | [place] for [facility] | | Spondylosis with | | | | and Healing, | | Myelopathy, Lumbar | | | | Building | | Region; Herniated | | | | Floor [place], [place] | | Lumbar | | | | [address] | | Intervertebral Disc | | | | [phone] | | L4-5; Migraine | | | [...] Belinda Meehan is a 46 y.o. female [facility] Pain Center Return Visit Chief Complaint: [...] these have helped improve function but not roasterman, and she reports sleeping poorly due to pain disru ption since prior visit. Since prior visit she had a 06/24/06: Bone density study and her T-Score -1.2 lumbar spine a nd -2.2 proximal femur. Collection Information Collection Date Collection Time Resulting Agency 03/10/2006 2:42 PM [facility] DEPARTMENT OF PATHOLOGY Component Results Component Value Range Status CALCIUM (LAB) 9.5 8.5 - 10.5 mg/dL Fin SPINE LUMBAR 2 VIEWS AT 1421 HOURS LUMBAR SPINE, 10/01/05 HISTORY: Back pain. FINDINGS: AP and lateral views of the lumbar spine show five soe-dlf-uqcssal lumbar vertebrae in normal alignment with no [...] spent in reviewing of chart, imaging and savings counselor ing/coordindation of care. 1. For the [...] appropriate care and safety for your patient, [facility] Pain Center r equires a primary [...] Please indicate and fax your response to [phone]. I called and left a message on [facility] general voice mail requesting he call me to discuss prescribing and patient care. DELFINA MOLINA [facility] Pain Center Mail code CH 4P [facility] Health and [address] [address] aurav Tasha - 07/30/2006 7:35 [...] | + +---------+ + + | [facility] DEPARTMENT OF | | | | | [...]
--- OUTSIDE RECORDS SUMMARY | ~2019-10-16 | XMS | Encounter Summary ---
Demographics + + + | Address | [address] | | | [place] [address] | + + + | Home Phone [...] Team Providers + +------+ + | Care Casing Finisher And Stuffer Name | Role | Phone | + [...] [address] | | | | | [facility] | [place], [place] | | | | | and Healing, | [address] | | | | | [facility] | [phone] | | | | | Floor [place], [place] | | | | | | [address] | | | | | | [phone] | | | +--------+ + + + [...]
--- OUTSIDE RECORDS SUMMARY | ~2019-10-16 | XMS | Encounter Summary ---
Demographics + + + | Address | [address] | | | [place] [address] | + + + | Home Phone [...] Providers + +------+ + | Care Securities Lending Trader Name | Role | Phone | + +------+ + | Pedrito Gutierrez MD | PCP | | + +------+ + Encounter Details +--------+---------+ + + + | Date | Type | Department | Care Team | Description | +--------+---------+ + + + | 07/30/ | Office | Digestive Health | Eliezer Ruano, | Abdominal Pain | | 2006 | Visit | [place] [address] | [address] | (Primary Dx) | | | | Ave Mailcode: CH4S | [address] | | | | | [facility] | [facility] [place] | | | | | and Healing, | [address] | | | | | [facility] 1, 6th | [phone] | | | | | Floor [place], [place] | | | | | | [address] | | | | | | [phone] | | | +--------+---------+ + + + [...] [facility] [address] [facility], 6th [place] [address] alena Palacio - 07/30 4:09 PM PSTS: [...]
--- OUTSIDE RECORDS SUMMARY | ~2019-10-16 | XMS | Encounter Summary ---
Demographics + + + | Address | [address] | | | [place] [address] | + + + | Home Phone [...] Team Providers + +------+ + | Care Sessions Clerk Name | Role | Phone | [...] [id number] | | | | | | [place], [place] | | | | | | [address] | | | | | | [phone] | | | +--------+ + + + [...]
--- OUTSIDE RECORDS SUMMARY | ~2019-10-16 | XMS | Encounter Summary ---
Demographics + + + | Address | [address] | | | [place] [address] | + + + | Home Phone [...] +------+ + | Care Sales And Marketing Vice President Name | Role | Phone [...] as of this encounter Progress Notes Interface, Timber Skidder In - 09/13/2005 2:06 AM PST [id number] [facility] Date: 12/12/2004 Clinic: Endocrinology PHONE CONTACT NOTE The patient called me today after having surgery last week here at [facility]. Her concern was the development of [...] cushion which I have ordered today through [employer], phone #[phone] and fax #[phone]. Today, the patient will monitor the decubiti closely and will be in touch with myself and her other physician depending on the progress. She also still has [address], which may be removed in one or two weeks when she returns to the Surgery Clinic at [facility]. Beto Meeks M.D. PD / HS [id number] / [id number] / [id number] / [id number] cc: Chris Padgett M.D. Electronically signed by Beto Meeks 09-12-2005 02:22:31 AM documented i n this encounter Plan of Treatment Not on filedocumented as of this encounter Visit Diagnoses Not on filedocumented in this encounter"
--- OUTSIDE RECORDS SUMMARY | ~2019-10-16 | XMS | Encounter Summary ---
Demographics + + + | Address | [address] | | | [place] [address] | + + + | Home Phone [...] Team Providers + +------+ + | Care Communication Coordinator Name | Role | Phone | [...] | | | | | [address] [facility] | | | | | [place], [place] | [place] [address] | | | | | [address] | [phone] | | | | | [phone] | | | +--------+ + + + [...] 12/18/17 1321 by | | lyssa | kubp-lly-fddgap catheter system; | Jaye Bird, | Lucy [...] | | | | | [place] [address] | | | | | | [phone] | | | | | | | | +--------+ + + + + | 12/20/ | Office | Audiology | Elisabet Munson MS | | 2019 | Visit | | [facility] | | | | | | [place] | | | | | | [place] [address] | | | | | | [phone] | | | | | | | | +--------+ + + + + | 12/20/ | Office | Otolaryngology | Ulysses Genao MD | | | 2020 | Visit | | [address] [facility] | | | | | | [address] [place], | | | | | | [place] [address] | | | | | | [phone] | | | | | | | [...] mcg/kg/m | mL/hr | | | Starting Thu12/18/17 at 1057, | | AM PDT | [...]
--- OUTSIDE RECORDS SUMMARY | ~2019-10-16 | XMS | Encounter Summary ---
Demographics + + + | Address | [address] | | | [place] [address] | + + + | Home Phone [...] | back pain | [place], | [address] | | | | | with | [place] | Phone: | | | | | bilateral | [address] | [phone] | | | | | sciatica | Phone: | Fax: | | | | | Procedures | [phone] | [phone] | | | | | MRI Lumbar | Fax: | | | | | | Spine wo | [phone] | | | | | | Contrast [...] + + | 05/17/ | Office | [facility] | [place], | Lumbar | | 2018 | Visit | MEDICINE [address] [place] [address] | MD Petrona | radiculopathy, acute | | | | Street [place] | [address] [place] [address] | (Primary Dx); Acute | | | | [place] [address] | [place] [address] | midline low back | | | | [phone] | [phone] | pain with bilateral | | | [...] (gastroesophageal reflux disease) Glaucoma Hyperparathyroidism ([facility]) Hypothyroidism IBS (irritable bowel syndrome) [...] Procedure: COLONOSCOPY; Surgeon: Luther Brito MD; Location: [facility] MEDICAL PROCEDURE UNIT DILATION AND CURETTAGE OF UTERUS ELBOW SURGERY FINGER TRIGGER RELEASE 2002 FINGER TRIGGER RELEASE 2010 GASTRIC BYPASS SURGERY 2004 HYSTERECTOMY 05/14/1980 JOINT REPLACEMENT Bilateral 2007 2008 KNEE ARTHROSCOPY 2005 LAPAROSCOPY 01/27/2015 LAPAROTOMY 2008 ROTATOR CUFF REPAIR 2005 SPINE SURGERY TONSILLECTOMY 1964 UPPER GASTROINTESTINAL ENDOSCOPY N/A 12/18/2017 Procedure: EGD; Surgeon: Luther Brito MD; Location: [facility] MEDICAL PROCEDURE UNIT CURRENT MEDICATIONS Current [...] ours as needed for Pain. Incontinence Supplies [facility] As directed 100 each 11 levothyroxine (SYNTHROID) [...] (See Comments) Confused and questionable for seizures Gqycsmqsel-Tjws-Yxzqvlas Hives and Rash Cephalexin Hives Ciprofloxacin Hives [...] Note: Parts of this documentwere created using [employer] speech recognition software. As a r esult, [...] | | | | | [place] [address] | | | | | | [phone] | | | | | | | | +--------+ + + + + | 12/20/ | Office | Audiology | Elisabet Munson | | | 2019 | Visit | | [facility] [address] | | | | [address] [place] | | | | | | [place] [address] | | | | | | [phone] | | | | | | | | +--------+ + + + + | 12/20/ | Office | Otolaryngology | Ulysses Genao MD | | | 2019 | Visit | | [address] | | | | | | [address] [place], | | | | | | [place] [address] | | | | | | [phone] | | | | | | | [...]
--- OUTSIDE RECORDS SUMMARY | ~2019-10-16 | XMS | Encounter Summary ---
Demographics + + + | Address | [address] | | | [place] [address] | + + + | Home Phone [...] Providers + +------+ + | Care Technology Applications Engineer Name | Role | Phone | [...] as of this encounter Progress Notes Interface, Machinery Dismantler In - 03/26/2006 1:05 AM [facility] [place] [address] [place], [place] [address] or February 22, 2001 Pedrito Gutierrez M.D. [facility] [address] [place] [address] RE: BELINDA MEEHAN MR #: [id number] Dear [...] regarding this patient. Sincerely, Issac Meeks M.D. traffic control signaler Division of Endocrinology, Diabetes, and Clinical Assembly Line Supervisor, Metabolic Disorders Clinic PBD / HS [id number] / [id number] / [id number] / [id number] signed by Interface, Machinery Dismantler In at 03/26/2006 1:05 AM PDTdocume nted in this encounter Plan of Treatment Not on filedocumented as of this encounter Visit Diagnoses Not on filedocumented in this encounter
--- OUTSIDE RECORDS SUMMARY | ~2019-10-16 | XMS | Encounter Summary ---
Demographics + + + | Address | [address] | | | [place] [address] | + + + | Home Phone [...] Providers + +------+ + | Care Rn Relief Charge Name | Role | Phone | [...] + | 08/14/ | Refill | [facility] | Alanis, | Medication Refill | | 2018 | | MEDICINE [address] [place] [address] | MD Petrona | | | | | [facility] | [address] [place] [address] | | | | | [place] [address] | [place] [address] | | | | | [phone] | [phone] | | | | | | | [...] | | | | | [place] [address] | | | | | | [phone] | | | | | | | | +--------+ + + + + | 12/20/ | Office | Audiology | DarioElisabet ramires MS | | | 2019 | Visit | | [facility] [address] | | | [address] [place] | | | | | | [place], [place] [address] | | | | | | [phone] | | | | | | | | +--------+ + + + + | 12/20/ | Office | Otolaryngology | Ulysses Genao MD | | | 2019 | Visit | | [address] [place] | | | | | | [address] [place], | | | | | | [place] [address] | | | | | | [phone] | | | | | | | | +--------+ + + + + documented as of this encounter Visit Diagnoses Not on filedocumented in this encounter"
--- OUTSIDE RECORDS SUMMARY | ~2019-10-16 | XMS | Encounter Summary ---
Demographics + + + | Address | [address] | | | [place] [address] | + + + | Home Phone [...] Team Providers + +------+ + | Care Composition Floor Setter Name | Role | Phone | [...] Lab findings, | | 2007 | | [place] [address] | [address] | teaching, guidance, | | | | Ave Mailcode: CH4S | [address] | and counseling | | | | [facility] | [place], [place] | | | | | and Healing, | [address] | | | | | [facility] | [phone] | | | | | [place], [place] | | | | | | [address] | | | | | | [phone] | | | +--------+ + + + [...]
--- OUTSIDE RECORDS SUMMARY | ~2019-10-16 | XMS | Encounter Summary ---
Demographics + + + | Address | [address] | | | [place] [address] [...] Team Providers + +------+ + | Care Armor Reconnaissance Vehicle Driver Name | Role | Phone | [...] [address] | | | | | [place], [place] | [place], [place] | | | | | [address] | [address] | | | | | [phone] | [phone] | | | | | | | [...]
--- OUTSIDE RECORDS SUMMARY | ~2019-10-16 | XMS | Encounter Summary ---
Demographics + + + | Address | [address] | | | [place] [address] | + + + | Home Phone [...] Providers + +------+ + | Care Rug Frame Mounter Name | Role | Phone | + [...] | | | | Clinical Nutrition | [place], [place] | | | | | [address] | [address] | | | | | Loop Mailcode: OPC5 | [phone] | | | | | Outpatient Clinic | | | | | | [facility], | | | | | | [place] [address] | | | | | | [phone] | | | +--------+ + + + [...]
--- OUTSIDE RECORDS SUMMARY | ~2019-10-16 | XMS | Encounter Summary ---
Demographics + + + | Address | [address] | | | [place] [address] | + + + | Home Phone [...] Providers + +------+ + | Care Order Builder Name | Role | Phone | [...] + | 11/15/ | Office | [facility] | Emmy-Tajti, | Arthralgia of both | | 2019 | Visit | MEDICINE [address] | MD Petrona | hands (Primary Dx); | | | | [address] [place] | [address] [facility] | Acquired | | | | [place] [address] | [place] [address] | hypothyroidism; | | | | [phone] | [phone] | Migraine without | | | | [...] Procedure: COLONOSCOPY; Surgeon: Luther Brito MD; Location: [facility] MEDICAL PROCEDURE UNIT DILATION AND CURETTAGE OF UTERUS ELBOW SURGERY FINGER TRIGGER RELEASE 2003 FINGER TRIGGER RELEASE 2010 GASTRIC BYPASS SURGERY 2004 HYSTERECTOMY 05/14/1980 JOINT REPLACEMENT Bilateral 2006 2007 KNEE ARTHROSCOPY 2005 LAPAROSCOPY 01/27/2015 LAPAROTOMY 2008 ROTATOR CUFF REPAIR 2005 SPINE SURGERY TONSILLECTOMY 1964 UPPER GASTROINTESTINAL ENDOSCOPY N/A 12/18/2017 Procedure: EGD; Surgeon: Luther Brito MD; Location: [facility] MEDICAL PROCEDURE UNIT CURRENT MEDICATIONS Current [...] (See Comments) Confused and questionable for seizures Noetlmqzim-Ryxb-Trlasnjg Hives and Rash Cephalexin Hives Ciprofloxacin Hives [...] Note: Parts of this documentwere created using [employer] speech recognition software. As a r esult, there may be unintended word spelling errors. Every attempt was made to correct the dictation. documente d in this encounter Plan of Treatment +--------+ + + + + | Date | Type | Specialty | Care Team | Description | +--------+ + + + + | 10/16/ | Clinical | Internal Medicine | | | | 2020 | Support | | | | +--------+ + + + + | 11/14/ | Office | Internal Medicine | EmmyAlberto, | | | 2019 | Visit | | MD Petrona | | | | | | [address] [place] | | | | | | [place] [address] | | | | | | [phone] | | | | | | | | +--------+ + + + + | 12/20/ | Office | Audiology | Elisabet Munson MS | | | 2019 | Visit | | [facility] [address] | | | | | [address] [place] | | | | | | [place] [address] | | | | | | [phone] | | | | | | | | +--------+ + + + + | 12/20/ | Office | Otolaryngology | Ulysses Genao MD | | | 2019 | Visit | | [address] [place] | | | | | | [address] [place], | | | | | | [place] [address] | | | | | | [phone] | | | | | | | [...] [address] | [place] | [phone] | | [facility] | | [address] | | | - LABORATORY | | [...] | | | | | with both NM-3 and | | | | | | [...] | + + + | Performed at: - [facility] [address], | REFERENCE LAB | | [place], [place] [id number] Channel Process Supervisor: Manish Chin MD, Phone: | [facility] | | [phone] Performed at: - [address] | | | [place], [place] [id number] Channel Process Supervisor: Jeannine Mendoza MD, | | | Phone: [phone] | | + + + + + + + + | Performing | Address | City/State/Zipcode | Phone Number | | Organization | | | | + + + + + | REFERENCE LAB | [address] | [place], [place] | [phone] | | [facility] | Drive [facility] | [address] | | + + + + + [...] + + | Performed at: 01 - [place] [address], | REFERENCE LAB | | [place], [place] [id number] Channel Process Supervisor: Bandar Gan MD, Phone: | [facility] [place] | | [phone] | | + + + + + + + + | Performing | Address | City/State/Zipcode | Phone Number | | Organization | | | | + + + + + | REFERENCE LAB | [address] | [place], [place] | [phone] | | [facility] | [address] | [address] | | + + + + + Uric Acid (11/15/2018 9:59 AM PDT) + +-------+ + + + | Component | Value | Ref Range | Performed | Pathologist | | | | | At | Signature | + +-------+ + + + | Uric Acid | 5.4 | 3.1 - 7.8 mg/dL | [facility] | | | | [...] [address] | [place] | [phone] | | [facility] | | [address] | | | - LABORATORY | | [...] [address] | [place] | [phone] | | [facility] | | [address] | | | - LABORATORY | | [...] [address] | [place] | [phone] | | [facility] | | [address] | | | - LABORATORY | | [...] 11 | 9 - 23 mg/dL | [facility] | | | | | | [facility] | | | | | | MEDICAL | | | | | | CENTER - | | | | | | LABORATORY | | + + + + + + | Creatinine | 0.82 | 0.55 - 1.02 | [facility] | | | | | mg/dL | [facility] | | | | | | MEDICAL | | | | | | CENTER - | | | | | | LABORATORY | | + + + + + + | eGFR if not | >60Comment: GLOMERULAR | >=60 | [facility] | | | | FILTRATION | mL/min/1.73m2 | [facility] | | | [place] | RATE,ESTIMATED | | MEDICAL | | | | mL/min/1.34x5Xhzx than | | CENTER - | | [...] LUDWIG. | [address] | [place], [place] | [phone] | | [facility] | | [address] | | | - LABORATORY | | [...] | | | First dose on [facility] 10/15/17 at 1215 | | | [...]
--- OUTSIDE RECORDS SUMMARY | ~2019-10-16 | XMS | Encounter Summary ---
Demographics + + + | Address | [address] | | | [place] [address] | + + + | Home Phone [...] Team Providers + +------+ + | Care Dietetics Director Name | Role | Phone | + +------+ + | Maria Esther Cintron MD | PCP | | + +------+ + Encounter Details +--------+ + + + + | Date | Type | Department | Care Team | Description | +--------+ + + + + | 04/19/ | Telephone | Digestive Health | Chris Padgett, | | | 2007 | | [place] [address] | [address] [facility] | | | | | [place] Mailcode: CH4S | [address] | | | | | [facility] | [place], [place] | | | | | and Healing, | [address] | | | | | Building , 6th | [phone] | | | | | Floor [place], [place] | | | | | | [address] | | | | | | [phone] | | | +--------+ + + + [...]
--- OUTSIDE RECORDS SUMMARY | ~2019-10-16 | XMS | Encounter Summary ---
Demographics + + + | Address | [address] | | | [place] [address] | + + + | Home Phone [...] Providers + +------+ + | Care Mud Tank Operator Name | Role | Phone | + +------+ + | Pedrito Gutierrez MD | PCP | | + +------+ + Encounter Details +--------+---------+ + + + | Date | Type | Department | Care Team | Description | +--------+---------+ + + + | 07/30/ | Office | Comprehensive Pain | Nathalia Arora | Cervical Spondylosis | | 2006 | Visit | [facility] | [address] | without Myelopathy | | | | [place] [address] | [place] [address], | (Primary Dx); | | | | [address] Mailcode: | [place] [address] | Spondylosis with | | | | [facility] | | Myelopathy, Lumbar | | | | Health and Healing, | | Region; Herniated | | | | Building | | Lumbar | | | | Floor [place], [place] | | Intervertebral Disc; | | | | [address] | | Unspecified Myalgia | | | | [phone] | | and Myositis | +--------+---------+ + [...] Progress Note Date: 07/30/2006 Belinda [place] [id number]. 1960 Start of Care: 06/23/2006 Referring Provider: [...] her today. Patient has multiple appts. At [facility] today, including a f/u regarding her connelly [...] [place] [facility] | Procedures | Routin | Cervical [...]
--- OUTSIDE RECORDS SUMMARY | ~2019-10-16 | XMS | Encounter Summary ---
Demographics + + + | Address | [address] | | | [place] [address] | + + + | Home Phone [...] Team Providers + +------+ + | Care Bookkeeping Machine Mechanic Name | Role | Phone | [...] as of this encounter Progress Notes Interface, Tonger In - 01/03/2006 3:02 AM PDTCLINIC DATE: 11/01/2002 NEUROMUSCULAR CLINIC PRIMARY CARE PROVIDER: Pedrito Gutierrez M.D. OTHER PHYSICIAN: Issac Meeks M.D., [facility] Endocrinology. PROBLEM LIST 1. Fibromyalgia and [...] fatigue. She reportedly has begun walking with [place] crutches much of the time due to [...] Irving Pete M.D. Neurology/Neuromuscular Fellow TBD / [id number] / [id number] / [id number] / [id number] C: 11/10/2002 BRAD cc: Issac Meeks M.D. [facility] Endocrinology Pedrito Guiterrez M.D. [address] [place], [place] [id number] signed by Interface, Tonger In at 01/03/2006 3:0 2 AM PDTdocumented in this encounter Plan of Treatment Not on filedocumented as of this encounter Visit Diagnoses Not on filedocumented in this encounter
--- OUTSIDE RECORDS SUMMARY | ~2019-10-16 | XMS | Encounter Summary ---
Demographics + + + | Address | [address] | | | [place] [address] | + + + | Home Phone [...] Providers + +------+ + | Care Poultry Cleaner Name | Role | Phone | + +------+ + | Pedrito Gutierrez MD | PCP | | + +------+ + Encounter Details +--------+---------+ + + + | Date | Type | Department | Care Team | Description | +--------+---------+ + + + | 08/05/ | Office | Comprehensive Pain | Nathalia Arora | Cervical Spondylosis | | 2006 | Visit | [facility] | [address] | without Myelopathy | | | | [place] [address] | [place] [address] [place], | (Primary Dx); | | | | [address] Mailcode: | [place] [address] | Spondylosis with | | | | [facility] | | Myelopathy, Lumbar | | | | Health and Healing, | | Region; Herniated | | | | Building | | Lumbar | | | | Floor [place], [place] | | Intervertebral Disc; | | | | [address] | | Unspecified Myalgia | | | | [phone] | | and Myositis | +--------+---------+ + [...] Progress Note Date: 08/05/2006 Belinda Molly Shefali [id number]. 1960 Start of Care: 06/23/2006 Referring Provider: [...] keep hydrated, went to the ED in [place] and was sent home by the [facility] without a ny treatment and advised by him to contact the pain clinic. Patient did not some relief with her last treatment, and continues her exercises consistent ly. She is walking daily at [facility] for 15-20 minutes, sitting X 60 [...]
--- OUTSIDE RECORDS SUMMARY | ~2019-10-16 | XMS | Encounter Summary ---
Demographics + + + | Address | [address] | | | [place] [address] | + + + | Home Phone [...] Team Providers + +------+ + | Care Color Specialist Name | Role | Phone | [...] Refill Request | | 2007 | | [place] [address] | [address] [facility] | | | | | [place] Mailcode: CH4S | [facility] | | | | | [facility] | [place], [place] | | | | | and [place], | [address] | | | | | [facility] | [phone] | | | | | Floor [place], [place] | | | | | | [address] | | | | | | [phone] | | | +--------+--------+ + + + [...]
--- OUTSIDE RECORDS SUMMARY | ~2019-10-16 | XMS | Encounter Summary ---
Demographics + + + | Address | [address] | | | [place] [address] | + + + | Home Phone [...] Team Providers + +------+ + | Care Sock Liner Name | Role | Phone | + +------+ + | Pedrito Gutierrez MD | PCP | | + +------+ + Encounter Details +--------+ + + + + | Date | Type | Department | Care Team | Description | +--------+ + + + + | 08/22/ | Hospital | Radiology/Imaging | | | | 2008 | Encounter | Lab at [facility] [address] | | | | | | [address] Mailcode: | | | | | | [facility] | | | | | | Health and Healing, | | | | | | [place] [address], | | | | | | Floor [place], [place] | | | | | | [address] | | | | | | [phone] | | | +--------+ + + + [...]
--- OUTSIDE RECORDS SUMMARY | ~2019-10-16 | XMS | Encounter Summary ---
Demographics + + + | Address | [address] | | | [place] [address] | + + + | Home Phone [...] + | 04/26/ | Refill | [facility] | Alanis, | Medication Refill | | 2018 | | MEDICINE [address] [place] [address] | MD Petrona | | | | | [facility] | [address] [place] [address] | | | | | [place] [address] | [place] [address] | | | | | [phone] | [phone] | | | | | | | [...] | | | | | [place] [address] | | | | | | [phone] | | | | | | | | +--------+ + + + + | 12/20/ | Office | Audiology | DarioElisabet ramires MS | | | 2019 | Visit | | [facility] [address] [place] | | | | | | [place], [place] [address] | | | | | | [phone] | | | | | | | | +--------+ + + + + | 12/20/ | Office | Otolaryngology | Ulysses Gneao MD | | | 2019 | Visit | | [address] | | | | | | [address] [place], | | | | | | [place] [address] | | | | | | [phone] | | | | | | | | +--------+ + + + + documented as of this encounter Visit Diagnoses Not on filedocumented in this encounter"
--- OUTSIDE RECORDS SUMMARY | ~2019-10-16 | XMS | Encounter Summary ---
Demographics + + + | Address | [address] | | | [place] [address] | + + + | Home Phone [...] Providers + +------+ + | Care Eligibility Analyst Name | Role | Phone | + +------+ + | Sulaiman Carrera MD | PCP | | + +------+ + Encounter Details +--------+ + + + + | Date | Type | Department | Care Team | Description | +--------+ + + + + | 01/02/ | Ancillary | Registration [address] | Beto Meeks MD | | | 2004 | Registratio | [facility] | [address] | | | | n | [place] Mailcode: [id number] | [place], [place] | | | | | [place], [place] | [address] | | | | | [address] | [phone] | | | | | [phone] | | | +--------+ + + + [...] DEPARTMENT OF | [address] | [place] [address] | | | PATHOLOGY | [address] | | | + + + + + | [facility] DEPARTMENT OF | [address] | [place] [address] | | | PATHOLOGY | [address] [...] [facility] DEPARTMENT OF | [address] [facility] | [place] [address] | | | PATHOLOGY | [address] | | | + + + + + | [place] DEPARTMENT OF | [address] [facility] | [place] [address] | | | PATHOLOGY | [address] [...] | + + + + + | [facility] | [address] | [place] [address] | | | LABORATORY | | | | + + + + + documented in this encounter Visit Diagnoses Not on filedocumented in this encounter"
--- OUTSIDE RECORDS SUMMARY | ~2019-10-16 | XMS | Encounter Summary ---
Demographics + + + | Address | [address] | | | [place] [address] | + + + | Home Phone [...] Team Providers + +------+ + | Care Hydrant Setter Name | Role | Phone | [...] 10/07/ | Office | [facility] | Lukasz Charles, | Major Depressive | | 2006 | Visit | [address] | PhD [address] | Disorder, Recurrent | | | | Mailcode: [id number] | [facility] [place] | Episode, Moderate | | | | [facility] | [address] | ([facility]); Spondylosis | | | | and Healing, | [phone] | with Myelopathy, | | | | Building | | Lumbar Region; | | | | Floor [facility] [place] | | Chronic Abdominal | | | | [address] | | Pain; Adjustment | | | | [phone] | | Disorder with | | | [...] need to continue self-c are. Diagnosis: [place] I: 1. (296.32) Major depressive disorder, recurrent, moderate. 2. (309.24) Adjustment disorder with anxiety. 3. 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 [place] II: Deferred [place] III: abdominal pain, migraine headache, low back pain. [place] IV: low finances [place] V: GAF 50 Plan: Return in 2 weeks. Schedule 4 follow-up appointments. Check preparation for move and for niece's visit. Check [employer] gym, pacing, relaxation, activity, distraction. Check "Managin g Pain..." book. Continue cognitive/behavioral therapy. Total time spent with patient was approximately 45 minutes. LUKASZ CHARLES PHD [facility] [address] [facility] [place] [address] documented in this encount er Plan of Treatment + + +--------+ + + | Name | Type | Priori | Associated Diagnoses | Order Schedule | | | | ty | | | + + +--------+ + + | IN PSYCHOTHERPY, | Procedures | Routin | Major Depressive | Ordered: 10/07/2006 | | OFFICE (45-50) | | e | Disorder, Recurrent | | | | | | Episode, Moderate | | | | | | ([facility]) Spondylosis | | | | | [...]
--- OUTSIDE RECORDS SUMMARY | ~2019-10-16 | XMS | Encounter Summary ---
Demographics + + + | Address | [address] | | | [place] [address] | + + + | Home Phone [...] and Services [place] | | | and Gregoryana | + + + | Organization | [...] Providers + +------+ + | Care Inspector Subassemblies Name | Role | Phone | + [...] | | | | [place], | [address] | | | | | | [place] | Phone: | | | | | | [address] | [phone] | | | | | | Phone: | Fax: | | | | | | [phone] | [phone] | | | | | | Fax: | | | | | | | [phone] | | +--------+ + + + + [...] + + | 04/18/ | Office | [facility] | Alanis, | Poor memory (Primary | | 2019 | Visit | MEDICINE [address] [place] [address] | MD [place] | Dx); B12 | | | | Street [place] | [address] [facility] | deficiency; Fatty | | | | [place] [address] | [place] [address] | liver | | | | [phone] | [phone] | | | | | | | [...] nl. No depression or suicidal thinki ng. Roach Cognitive Assessment (MoCA) Office Visit from 04/18/2019 in [facility] Visuospatial / Executive 4 Naming [...] Allergen Reactions Ensure Diarrhea Food Diarrhea Lactose Rxibtxxzfy-Aca-Itrw-Codeine Other (See Comments) Balance problems Codeine Sulfate Nausea Only Food Allergy Formula Diarrhea Ensure Levofloxacin Hives, Itching and Rash Butalbital Ropinirole Amitriptyline Hcl Other (See Comments) Confused and questionable for seizures Malzlmswwn-Dnkz-Yqgirbhq Rash duplicate Jnbwgdfvgc-Hucn-Plcpmtts Hives and Rash Cephalexin Hives Ciprofloxacin Hives [...] 1. Parts of this documentwere created using [employer] speech recognition software. As a resu lt, [...] | | | | | [facility] [address] | | | | | | [place] [address] | | | | | | [phone] | | | | | | | | +--------+ + + + + | 12/20/ | Office | Audiology | Elisabet Munson MS | | | 2019 | Visit | | [facility] [address] | | | | | [address] [place] | | | | | | [place] [address] | | | | | | [phone] | | | | | | | | +--------+ + + + + | 12/20/ | Office | Otolaryngology | Ulysses Genao MD | | | 2019 | Visit | | [address] | | | | | | [address] [place], | | | | | | [place] [address] | | | | | | [phone] | | | | | | | | +--------+ + + + + + + +--------+ + + | Name | Type | Priori | Associated Diagnoses | Order Schedule | | | | ty | | | + + +--------+ + + | [facility] | Outpatient | Routin | Poor [...] | | FILTRATION | mL/min/1.73m2 | Yudy EVANS | | | GAMBIAN | RATE,ESTIMATED | | MEDICAL | | | | mL/min/1.27h3Xujm than | | CENTER - | | [...] [address] | [place] | [phone] | | [facility] | | [address] | | | - LABORATORY | | | | + + + + + Folate (04/18/2019 11:29 AM PST) + +-------+ + + + | Component | Value | Ref Range | Performed | Pathologist | | | | | At | Signature | + +-------+ + + + | FOLATE | 40.9 | >5.4 ng/mL | [facility] | | | | | [...] + | [facility] | [address] | [place], [place] | [phone] | | [facility] | | [address] | | | - LABORATORY | | | | + + + + + Vitamin B-12 (04/18/2019 11:29 AM PST) + + + + + + | Component | Value | Ref Range | Performed | Pathologist | | | | | At | Signature | + + + + + + | VITAMIN | >[id number] (H)Comment: | 156 - 672 pg/mL | [...] [address] | [place] | [phone] | | [facility] | | [address] | | | - LABORATORY | | [...] | | | | First dose on [facility] 10/15/17 at 1215 | | [...]
--- OUTSIDE RECORDS SUMMARY | ~2019-10-16 | XMS | Encounter Summary ---
Demographics + + + | Address | [address] | | | [place] [address] | + + + | Home Phone [...] Team Providers + +------+ + | Care Nutrition Worker Name | Role | Phone | [...] of this encounter Progress Notes Interface, Annual Giving Officer In - 08/19/2005 2:05 AM PST [id number] GEOVANNI [facility] Date: 07/24/2005 Clinic: Hematology/Oncology [...] or malignancies. 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 She still smokes 1/2 [...] are appreciated. No petechiae. Laboratory: Labs from [place]: Homocysteine 8.5 and SANIA negative. CBC: White [...] laboratory studies that have been obtained from [place], it does not appear that she has [...] E supplementation. Karen Gramza, Joanna Sellers M.D. supervisor roving / HS [id number] / [id number] / [id number] / [id number] cc: Pedrito Gutierrez M.D. [facility] [address] [place] [address] FAX: [phone] Electronically signed by Lukasz Sellers 08-18-2005 01:27:53 PM documented i n this encounter Plan of Treatment Not on filedocumented as of this encounter Visit Diagnoses Not on filedocumented in this encounter"
--- OUTSIDE RECORDS SUMMARY | ~2019-10-16 | XMS | Encounter Summary ---
Demographics + + + | Address | [address] | | | [place] [address] | + + + | Home Phone [...] Providers + +------+ + | Care Sap Treasury Consultant Name | Role | Phone | [...] | | | | | [address] | [address] [facility] | | | | | [place], [place] | [place] [address] | | | | | [address] | [phone] | | | | | [phone] | | | +--------+ + + + [...] 12/18/17 1321 by | | lyssa | zvyg-cvg-xnfwfp catheter system; | Jaye Bird, | Lucy [...] | | | | | [place] [address] | | | | | | [phone] | | | | | | | | +--------+ + + + + | 12/20/ | Office | Audiology | Elisabet Munson MS | | 2019 | Visit | | [facility] | | | | | | [place] | | | | | | [place] [address] | | | | | | [phone] | | | | | | | | +--------+ + + + + | 12/20/ | Office | Otolaryngology | Ulysses Genao MD | | | 2020 | Visit | | [address] [facility] | | | | | | [address] [place], | | | | | | [place] [address] | | | | | | [phone] | | | | | | | [...]
--- OUTSIDE RECORDS SUMMARY | ~2019-10-16 | XMS | Encounter Summary ---
[...] Team Providers + +------+ + | Care Atomic Spectroscopist Name | Role | Phone | + [...] | | | | | [place], | | | | | | [place] [address] | | | | | | [phone] | | +--------+ + + + + [...] | + +---------+ + + | [facility] DEPARTMENT OF | | [...] | + +---------+ + + | [facility] DEPARTMENT OF | | [...] | + +---------+ + + | [facility] DEPARTMENT OF | | | | | RADIOLOGY | | | | + +---------+ + + documented in this encounter Visit Diagnoses Not on filedocumented in this encounter"
--- OUTSIDE RECORDS SUMMARY | ~2019-10-16 | XMS | Encounter Summary ---
Demographics + + + | Address | [address] | | | [place] [address] | + + + | Home Phone [...] Providers + +------+ + | Care Supervisor Production Name | Role | Phone | [...] | | | central | [address] | HOSPITAL | | | | | origin, | [address] | [address] | | | | | unspecified | [place] | [address]VE | | | | | laterality | [place], [place] | [place] | | | | | Procedures | [address] | [address] | | | | | MRI Brain w | Phone: | Phone: | | | | | wo Contrast | [phone] | [phone] | | | | | CT MRI | Fax: | Fax: | | | | | BRAIN COMBO | [phone] | [phone] | +--------+--------+ + + + + Reason [...] | | escu | [address] | [place] [address] | | | | | Procedures | [place], | Phone: | | | | | OFFICE VISIT | [place] | [phone] | | | | | REGULAR | [address] | Fax: | | | | | | Phone: | [phone] | | | | | | [phone] | | | | | | | Fax: | | | | | | | [phone] | | +--------+--------+ + + + + Encounter Details +--------+---------+ + + + | Date | Type | Department | Care Team | Description | +--------+---------+ + + + | 10/18/ | Office | [facility] | Ulysses Dsouza MD | Vertigo of central | | 2015 | Visit | OTOLARYNGOLOGY [address] | [address] | origin, unspecified | | | | [address] | [address] [place], | laterality (Primary | | | | [place], [place] | [place] [address] | Dx) | | | | [address] | [phone] | | | | | [phone] | | | +--------+---------+ + + + [...] MD - 10/18/2014 10:50 AM PDT [facility] OTOLARYNGOLOGY [address] [facility] [address] OFFICE NOTE ULYSSES DSOUZA MD Patient: BELINDA MEEHAN Admitting: MR #: [id number] LOC: PT TYPE: Adm Date: 10/18/2014 : [...] 10/18/2014 10:50:30 Transcribed on 10/18/2014 11:06:48 by [facility] job# [id number] Confirmation #: [id number] signed by Ulysses Dsouza MD at 10/18/2014 12:48 PM PDT Ulysses Dsouza MD - 10/18/2014 10:45 AM PDTSee dictation # [id number] signed by Ulysses Dsouza MD at 10/18/2014 10:51 AM PDTdocumented in th is encounter Plan of Treatment +--------+ + + [...] | | | | | [place] [address] | | | | | | [phone] | | | | | | | | +--------+ + + + + | 12/20/ | Office | Audiology | Elisabet Munson MS | | | 2019 | Visit | [facility] [address] | | | | | | [address] [place] [address] [place] | | | | | | [place] [address] | | | | | | [phone] | | | | | | | | +--------+ + + + + | 12/20/ | Office | Otolaryngology | Ulysses Dsouza MD | | | 2020 | Visit | | [address] | | | | | | [address] [place], | | | | | | [place] [address] | | | | | | [phone] | | | | | | | [...]
--- OUTSIDE RECORDS SUMMARY | ~2019-10-16 | XMS | Encounter Summary ---
Demographics + + + | Address | [address] | | | [place] [address] | + + + | Home Phone [...] | | | | Mailcode: CR131 | [place], [place] | | | | | Outpatient Clinic | [address] | | | | | [facility], | [phone] | | | | | [place] [address] | | | | | | [phone] | | | +--------+ + + + [...] | | | | | 2,SERUM | [facility] | [...] + + + | [facility] | [address] | [place] [address] | | | LABORATORY | | | | + + + + + documented in this encounter Visit Diagnoses Not on filedocumented in this encounter"
--- OUTSIDE RECORDS SUMMARY | ~2019-10-16 | XMS | Encounter Summary ---
Demographics + + + | Address | [address] | | | [place] [address] | + + + | Home Phone [...] Providers + +------+ + | Care Test Designer Name | Role | Phone | [...] [place] | | | | | | [facility] | | | | | | [place], [place] | | | | | | [address] | | | | | | [phone] | | | +--------+ + + + [...]
--- OUTSIDE RECORDS SUMMARY | ~2019-10-16 | XMS | Encounter Summary ---
Demographics + + + | Address | [address] | | | [place] [address] | + + + | Home Phone [...] + +------+ + | Care Sheet Metal Superintendent Name | Role | Phone | [...] of this encounter Progress Notes Interface, Manager Mail In - 02/15/2006 2:03 AM PDT [id number] GEOVANNI BELINDA [place] [id number] Clinic Date: 01/29/2006 Clinic: Endocrinology [place] Meehan [...] her visits to the Emergency Department in [place], she apparently had elevated "liver enzyme levels" and her blood pressure was up to 160/98. She subsequently underwent diagnostic testing that apparently included CT imaging of her abdomen and upper GI endoscopy, abdominal ultrasound, and other testing; the results of which have apparently been normal. She started going to [email or web address] approximately 2 weeks ago which has increased her level of physical activity. She has only occasional headaches, due in part to ongoing treatment with propanolol. She apparently was referred by Dr. Padgett to see a community representative here at [facility] for further evaluation of severe recurrent [...] ([facility] [facility] and pulse 60 beats per minute [...] evaluated recently at the Emergency Department in [place]. Her alkaline phosphatase level today is about [...] would benefit from being evaluated by a community representative. According to the patient, no gastroenterologists are available in [place]. She needs to petition her primary care provider and her insurance company to give the necessary authorization to allow her to be evaluated by a community representative. Plan: 1. Await results of serum 25-hydroxyvitamin [...] She needs to be seen by a community representative. 5. Return to see me again in 3 months. Beto Meeks M.D. PD / HS [id number] / [id number] / [id number] / cc: Pedrito Gutierrez M.D. [address] [place] [address] Chris Padgett M.D. Electronically signed by Beto Meeks 02-14-2006 02:02:55 AM documented i n this encounter Plan of Treatment Not on filedocumented as of this encounter Visit Diagnoses Not on filedocumented in this encounter
--- OUTSIDE RECORDS SUMMARY | ~2019-10-16 | XMS | Encounter Summary ---
Demographics + + + | Address | [address] | | | [place] [address] | + + + | Home Phone [...] Team Providers + +------+ + | Care Metallurgy Laboratory Technician Name | Role | Phone [...] Rehabilitatio | bilateral | i, | [address] | | | | n | low back | Sul[place]ny | [place], | | | | | pain with | [address] | [place] [address] | | | | | left-sided | [address] | Phone: | | | | | sciatica | [place], | [phone] | | | | | Muscle spasm | [place] | Fax: | | | | | | [address] | [phone] | | | | | Fibromyalgia | Phone: | | | | | | | [phone] | | | | | | | Fax: | | | | | | | [phone] | | +--------+ + + + + + Reason for Visit + + + | Reason | Comments | + + + | Follow-up | 2 month | + + + Encounter Details +--------+---------+ + + + | Date | Type | Department | Care Team | Description | +--------+---------+ + + + | 05/04/ | Office | [facility] | Alanis, | Chronic bilateral | | 2017 | Visit | MEDICINE [address] | MD [place] | low back pain with | | | | [address] | [address] [facility] | left-sided sciatica | | | | [place] [address] | [place] [address] | (Primary Dx); Muscle | | | | [phone] | [phone] | spasm; | | | | | [...] also help with symptoms. Date Last Reviewed: 07/29/201519996094-5635 [employer]. [address] [place] [address], [place] [address]. All righ ts reserved. This information is [...] insufficiency Coccydynia COPD (chronic obstructive pulmonary disease) ([facility]) Depression Diarrhea Dumping syndrome Fatigue fracture of vertebra Fibromyalgia Glaucoma Hyperparathyroidism (HCC) Hypothyroidism IBS (irritable bowel syndrome) Idiopathic scoliosis Leg edema Lumbar postlaminectomy syndrome Lumbar radiculopathy primarily right 01/04/2015 Meniere syndrome Migraines Muscle cramping Muscle spasm Myalgia Nonalcoholic hepatosteatosis Obesity Opiate dependence ([facility]) Orthostatic hypotension OLIVER (obstructive sleep apnea) Osteoarthritis, generalized Osteopenia Osteoporosis Peripheral neuropathy ([facility]) Rheumatoid arthritis ([facility]) Right arm pain 01/04/2015 RLS (restless legs syndrome) S/P lumbar fusion 01/04/2015 Scoliosis Spondylosis with myelopathy, lumbar region Stroke ([facility]) Syncope Tremor Type II or [...] (See Comments) Confused and questionable for seizures Zskwtcwmtj-Lxtb-Hhbgojmz Cephalexin Hives Ketorolac Hives Morphine Swelling Tramadol Hcl Nausea Only Gyechdwrhv-Tbxt-Qhfoomjy Hives and Rash Ciprofloxacin Hives and Rash [...] back pain with left-sided sciatica - * [facility] - [facility] Referral; Future - CBC with Differential; Future - Comprehensive Metabolic Panel; Future - TSH; Future - CK Total; Future - C-Reactive Protein; Future 2. Muscle spasm - * [facility] - [facility] Referral; Future - CBC with Differential; Future - Comprehensive Metabolic Panel; Future - TSH; Future - CK Total; Future - C-Reactive Protein; Future - methocarbamol (ROBAXIN) 750 mg tablet; take 1 tablet by mouth twice a day Dispense: 60 t ablet; Refill: 3 3. Fibromyalgia - * [facility] - [facility] Referral; Future - CBC with Differential; Future - Comprehensive Metabolic Panel; Future - TSH; Future - CK Total; Future - C-Reactive Protein; Future 4. Left hip pain - XR Hip Left 2-3 Views; Future FOLLOW-UP No Follow-up on file. Note: Parts of this documentwere created using [employer] speech recognition software. As a r esult, [...] | | | | | [place] [address] | | | | | | [phone] | | | | | | | | +--------+ + + + + | 12/20/ | Office | Audiology | Elisabet Munson MS | | | 2019 | Visit | | [facility] [address] | | | | | | [place] [address] [place] | | | | | | [place] [address] | | | | | | [phone] | | | | | | | | +--------+ + + + + | 12/20/ | Office | Otolaryngology | Ulysses Genao MD | | | 2020 | Visit | | [address] | | | | | | [address] [place], | | | | | | [place] [address] | | | | | | [phone] | | | | | | | [...] [address] | [place] | [phone] | | [facility] | | [address] | | | - LABORATORY | | [...] + | [facility] | [address] | [place] | [phone] | | [facility] | | [address] | | | - LABORATORY | | [...] [address] | [place] | [phone] | | [facility] | | [address] | | | - LABORATORY | | [...] | | | | | mg/dL | [facility] | | | | | | MEDICAL | | | | | | CENTER - | | | | | | LABORATORY | | + + + + + + | eGFR if not | >60Comment: GLOMERULAR | >=60 | [facility] | | | | FILTRATION | mL/min/1.73m2 | [facility] | | | LIBERIAN | RATE,ESTIMATED | | MEDICAL | | | | mL/min/1.84x4Autf than | | CENTER - | | [...] | | | | | mg/dL | [facility] | | | | | [...] + | [facility] | [address] | [place] | [phone] | | [facility] | | [address] | | | - LABORATORY | | [...] [address] | [place] | [phone] | | [facility] | | [address] | | | - LABORATORY | | [...]
--- OUTSIDE RECORDS SUMMARY | ~2019-10-16 | XMS | Encounter Summary ---
Demographics + + + | Address | [address] | | | [place] [address] | + + + | Home Phone [...] Providers + +------+ + | Care Claim Trainee Name | Role | Phone | [...] | pathological | | | | [place] [address] | [place] [address] | fracture presence | | | | [phone] | [phone] | (Primary Dx); | | | | [...] approx 07/29/17, last one done at the [facility] Belinda Meehan is a 57 y.o. y/o [...] She is seeing a pain specialist in [place] and is receiving hydrocodone from them. She needs a refill of Lomotil for chronic diarrhea which she tolerates well. She also reports some discomfort in the left nostril which is plugged most of the time for last several weeks. No fever or chills. No purulent drainage. Has history of allergies. REVIEW OF SYSTEMS See [facility] for further details. Review of systems otherwise negative. PAST MEDICAL HISTORY Past Medical History: Diagnosis Date Arthritis Atypical chest pain Benign essential hypertension Blind left eye Cervical radiculopathy Chronic low back pain 01/04/2015 Chronic neck pain 01/04/2015 Chronic pain Chronic venous insufficiency Coccydynia COPD (chronic obstructive pulmonary disease) ([facility]) Depression Diarrhea Dumping syndrome Fatigue fracture of vertebra Fibromyalgia Glaucoma Hyperparathyroidism (HCC) Hypothyroidism IBS (irritable bowel syndrome) Idiopathic scoliosis Leg edema Lumbar postlaminectomy syndrome Lumbar radiculopathy primarily right 01/04/2015 Meniere syndrome Migraines Muscle cramping Muscle spasm Myalgia Nonalcoholic hepatosteatosis Obesity Opiate dependence (HCC) Orthostatic hypotension OLIVER (obstructive sleep apnea) Osteoarthritis, generalized Osteopenia Osteoporosis Peripheral neuropathy ([facility]) Rheumatoid arthritis ([facility]) Right arm pain 01/04/2015 RLS (restless legs syndrome) S/P lumbar fusion 01/04/2015 Scoliosis Spondylosis with myelopathy, lumbar region Stroke ([facility]) Syncope Tremor Type II or unspecified [...] (See Comments) Confused and questionable for seizures Tnbcjklmgu-Qukj-Eytxumhe Cephalexin Hives Duloxetine Migraines and nausea Ketorolac Hives Morphine Swelling Ropinirole Hcl Hives Tramadol Hcl Nausea Only Lnbcbvdqja-Enpj-Halnwayy Hives and Rash Ciprofloxacin Hives and Rash [...] Note: Parts of this documentwere created using [employer] speech recognition software. As a r esult, [...] | | | | | [place] [address] | | | | | | [phone] | | | | | | | | +--------+ + + + + | 12/20/ | Office | Audiology | Elisabet Munson MS | | | 2019 | Visit | | [facility] [address] | | | | | [address] [place] | | | | | | [place] [address] | | | | | | [phone] | | | | | | | | +--------+ + + + + | 12/20/ | Office | Otolaryngology | Ulysses Genao MD | | | 2019 | Visit | | [address] | | | | | | [address] [place], | | | | | | [place] [address] | | | | | | [phone] | | | | | | | [...]
--- OUTSIDE RECORDS SUMMARY | ~2019-10-16 | XMS | Encounter Summary ---
Demographics + + + | Address | [address] | | | [place] [address] | + + + | Home Phone [...] Team Providers + +------+ + | Care A/C Tech Name | Role | Phone | [...] as of this encounter Progress Notes Interface, Hrbp In - 02/15/2006 2:03 AM PDT [id number] GEOVANNI BELINDA Molly [id number] Clinic Date: 01/29/2006 Clinic: Endocrinology Belinda Meehan [...] her visits to the Emergency Department in [place], she apparently had elevated "liver enzyme levels" and her blood pressure was up to 160/98. She subsequently underwent diagnostic testing that apparently included CT imaging of her abdomen and upper GI endoscopy, abdominal ultrasound, and other testing; the results of which have apparently been normal. She started going to [facility] approximately 2 weeks ago which has increased her level of physical activity. She has only occasional headaches, due in part to ongoing treatment with propanolol. She apparently was referred by Dr. Padgett to see a hospital admitting clerk here at [facility] for further evaluation of [...] [facility] 112[facility] [facility] and pulse 60 beats per [...] evaluated recently at the Emergency Department in [place]. Her alkaline phosphatase level today is about [...] would benefit from being evaluated by a hospital admitting clerk. According to the patient, no gastroenterologists are available in [place]. She needs to petition her primary care provider and her insurance company to give the necessary authorization to allow her to be evaluated by a hospital admitting clerk. Plan: 1. Await results of serum 25-hydroxyvitamin [...] She needs to be seen by a hospital admitting clerk. 5. Return to see me again in 3 months. Beto Meeks M.D. PD / HS [id number] / [id number] / [id number] / cc: Pedrito Gutierrez M.D. [address] [place] [address] Chris Padgett M.D. Electronically signed by Beto Meeks 02-14-2006 02:02:55 AM documented i n this encounter Plan of Treatment Not on filedocumented as of this encounter Visit Diagnoses Not on filedocumented in this encounter
--- OUTSIDE RECORDS SUMMARY | ~2019-10-16 | XMS | Encounter Summary ---
Demographics + + + | Address | [address] | | | [place] [address] | + + + | Home Phone [...] Providers + +------+ + | Care Accounting System Expert Name | Role | Phone | [...] | Pain | Diagnoses | Miracle, | [place], | | | | Management | LBP (low | NIHARIKA Jean | Lukasz Rhodes, PhD | | | | | back pain) | [address] | [address] | | | | | DJD | [address] | Ave | | | | | (degenerativ | [place], [place] | [place] | | | | | e joint | [address] | [address] | | | | | disease) of | | Phone: | | | | | knee Knee | | [phone] | | | | | pain Major | | Fax: | | | | | depressive | | [phone] | | | | | disorder, | [...] | | | | Mailcode: 15P | [place], [place] | Episode, Moderate | | | | [place] [facility] | [address] | ([facility]); LBP (Low Back | | | | and Healing, | [phone] | Pain); Bilateral | | | | | | Knee Pain; | | | | Floor [place], [place] | | Adjustment Disorder | | | | [address] | | with Anxiety | | | | [phone] | | | +--------+---------+ + + + [...] frustra tion by being less active. Diagnosis: Stover I: 1. (296.32) Major depressive disorder, recurrent, moderate. 2. (309.24) Adjustment disorder with anxiety. 3. 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 Stover II: Deferred Stover III: abdominal pain, migraine headache, low back pain. Stover IV: low finances Stover V: GAF 55-60 Plan: return with next medical follow-up appointment. Check mood, abdominal pain, relaxat ion, activity, distraction. Continue cognitive/behavioral therapy. Total time spent with patient was approximately 45 minutes. LUKASZ CHARLES LOCATED [facility]IN [facility] [address] [facility], [address] [place] [address] documented in this encount er Plan of Treatment + + +--------+ + + | Name | Type | Priori | Associated Diagnoses | Order Schedule | | | | ty | | | + + +--------+ + + | [place] PSYCHOTHERPY, | Procedures | Routin | Major [...]
--- OUTSIDE RECORDS SUMMARY | ~2019-10-16 | XMS | Encounter Summary ---
Demographics + + + | Address | [address] | | | [place] [address] | + + + | Home Phone [...] Providers + +------+ + | Care Fuel Cell Assembler Name | Role | Phone | [...] | phalanx of | [address] | [address] | | | | | left great | [place], | Phone: | | | | | toe, initial | [place] | [phone] | | | | | encounter | [address] | Fax: | | | | | | Phone: | [phone] | | | | | | [phone] | | | | | | | Fax: | | | | | | | [phone] | | +--------+ + + + + + Encounter Details +--------+ + + + + | Date | Type | Department | Care Team | Description | +--------+ + + + + | 08/26/ | Orders Only | [facility] | Alanis, | Closed nondisplaced | | 2018 | | MEDICINE [address] | MD [place] | fracture of proximal | | | | Street [place] | [address] [place] | phalanx of left | | | | [place] [address] | [place] [address] | great toe, initial | | | | [phone] | [phone] | encounter (Primary | | | | [...] | | | | | [place] [address] | | | | | | [phone] | | | | | | | | +--------+ + + + + | 12/20/ | Office | Audiology | Elisabet Munson MS | | 2019 | Visit | | [facility] [address] | | | | | | [address] [place] [address] [place] | | | | | | [place] [address] | | | | | | [phone] | | | | | | | | +--------+ + + + + | 12/20/ | Office | Otolaryngology | Ulysses Genao MD | | | 2019 | Visit | | [address] [facility] | | | | | | [address] [place], | | | | | | [place] [address] | | | | | | [phone] | | | | | | | [...]
--- OUTSIDE RECORDS SUMMARY | ~2019-10-16 | XMS | Encounter Summary ---
Demographics + + + | Address | [address] | | | [place] [address] | + + + | Home Phone [...] Team Providers + +------+ + | Care Neurology Director Name | Role | Phone | [...] + + | 07/20/ | Telephone | [facility] | Alanis, | Immunizations | | 2019 | | MEDICINE [address] [place] [address] | MD [place] | | | | | [facility] | [address] [place] [address] | | | | | [place] [address] | [place] [address] | | | | | [phone] | [phone] | | | | | | | [...] | | | | | [place] [address] | | | | | | [phone] | | | | | | | | +--------+ + + + + | 12/20/ | Office | Audiology | Elisabet Munson MS | | | 2019 | Visit | | [facility] [address] | | | | | | [address] [place] | | | | | | [place] [address] | | | | | | [phone] | | | | | | | | +--------+ + + + + | 12/20/ | Office | Otolaryngology | Ulysses Genao MD | | | 2019 | Visit | | [address] [place] | | | | | | [address] [place], | | | | | | [place] [address] | | | | | | [phone] | | | | | | | [...]
--- OUTSIDE RECORDS SUMMARY | ~2019-10-16 | XMS | Encounter Summary ---
Demographics + + + | Address | [address] | | | [place] [address] | + + + | Home Phone [...] Team Providers + +------+ + | Care Rat Breeder Name | Role | Phone | + [...] + + | 06/13/ | Refill | [facility] | Alanis, | Medication Refill; | | 2018 | | MEDICINE [address] | MD [place] | Medication Refill | | | | [facility] | [address] [place] [address] | | | | | [place] [address] | [place] [address] | | | | | [phone] | [phone] | | | | | | | [...] | | | | | [place] [address] | | | | | | [phone] | | | | | | | | +--------+ + + + + | 12/20/ | Office | Audiology | Elisabet Munson MS | | | 2019 | Visit | | [facility] [address] | | | | | | [address] [place] | | | | | | [place], [place] [address] | | | | | | [phone] | | | | | | | | +--------+ + + + + | 12/20/ | Office | Otolaryngology | Ulysses Genao MD | | | 2019 | Visit | | [address] [place] | | | | | | [address] [place], | | | | | | [place] [address] | | | | | | [phone] | | | | | | | | +--------+ + + + + documented as of this encounter Visit Diagnoses Not on filedocumented in this encounter"
--- OUTSIDE RECORDS SUMMARY | ~2019-10-16 | XMS | Encounter Summary ---
Demographics + + + | Address | [address] | | | [place] [address] | + + + | Home Phone [...] Providers + +------+ + | Care Senior Instructional Designer Name | Role | Phone | [...] + | 08/16/ | Refill | [facility] | Alanis, | Medication Refill | | 2019 | | MEDICINE [address] | MD [place] | | | | | [facility] | [address] [place] [address] | | | | | [place] [address] | [place] [address] | | | | | [phone] | [phone] | | | | | | | [...] | | | | | [place] [address] | | | | | | [phone] | | | | | | | | +--------+ + + + + | 12/20/ | Office | Audiology | DarioElisabet ramires MS | | | 2019 | Visit | | [facility] [address] | | | | | | [address] [place] | | | | | | [place], [place] [address] | | | | | | [phone] | | | | | | | | +--------+ + + + + | 12/20/ | Office | Otolaryngology | Ulysses Genao MD | | | 2019 | Visit | | [address] [place] | | | | | | [address] [place], | | | | | | [place] [address] | | | | | | [phone] | | | | | | | | +--------+ + + + + documented as of this encounter Visit Diagnoses Not on filedocumented in this encounter"
--- OUTSIDE RECORDS SUMMARY | ~2019-10-16 | XMS | Encounter Summary ---
Demographics + + + | Address | [address] | | | [place] [address] | + + + | Home Phone [...] Providers + +------+ + | Care Metal Fabricator Apprentice Name | Role | Phone | [...] of this encounter Progress Notes Interface, Vending Machine Assembler In - 01/12/2005 10:09 AM PDT [id number] GEOVANNI Barnes Clinic Date: 12/12/2004 Clinic: Endocrinology PHONE CONTACT NOTE The patient called me today after having surgery last week here at [facility]. Her concern was the development [...] cushion which I have ordered today through [employer] [place], phone #[phone] and fax #[phone]. Today, the patient will monitor the decubiti closely and will be in touch with myself and her other physician depending on the progress. She also still has [address], which may be removed in one or two weeks when she returns to the Surgery Clinic at [facility]. Beto Meeks M.D. PD / HS [id number] / [id number] / [id number] / [id number] cc: Chris Padgett M.D. documented i n this encounter Plan of Treatment Not on filedocumented as of this encounter Visit Diagnoses Not on filedocumented in this encounter"
--- OUTSIDE RECORDS SUMMARY | ~2019-10-16 | XMS | Encounter Summary ---
Demographics + + + | Address | [address] | | | [place] [address] | + + + | Home Phone [...] | + + +---------+ + | Sree eWlls | ECON | Unknown | | + + +---------+ + | Marco Antonio Wells | ECON | Unknown | | + + +---------+ + Care Team Providers + +------+ + | Care Chain Maker Loom Control Name | Role | Phone | [...] + | 04/09/ | Refill | [facility] | Alanis, | Medication Refill | | 2017 | | MEDICINE [place] | MD [place] | | | | | [address] | [address] [facility] | | | | | [place] | [facility] [place] [address] | | | | | [address] | [phone] | | | | | [phone] | | | +--------+--------+ + + + [...] | | | | | [place] [address] | | | | | | [phone] | | | | | | | | +--------+ + + + + | 07/08/ | Office | Audiology | Ceasar MunsonMS rafa | | | 2019 | Visit | | [facility] [address] | | | | | | [address] [place] | | | | | | [place], [place] [address] | | | | | | [phone] | | | | | | | | +--------+ + + + + | 12/20/ | Office | Otolaryngology | Ulysses Genao MD | | | 2019 | Visit | | [address] [place] | | | | | | [address] [place], | | | | | | [place] [address] | | | | | | [phone] | | | | | | | | +--------+ + + + + documented as of this encounter Visit Diagnoses Not on filedocumented in this encounter"
--- OUTSIDE RECORDS SUMMARY | ~2019-10-16 | XMS | Encounter Summary ---
Demographics + + + | Address | [address] | | | [place] [address] | + + + | Home Phone [...] Providers + +------+ + | Care Senior Director Finance Name | Role | Phone | [...] + + | 09/25/ | Telephone | [facility] | Alanis, | Other | | 2018 | | MEDICINE [address] [place] [address] | MD [place] | | | | | [facility] | [address] [place] [address] | | | | | [place] [address] | [place] [address] | | | | | [phone] | [phone] | | | | | | | [...] | | | | | [place] [address] | | | | | | [phone] | | | | | | | | +--------+ + + + + | 12/20/ | Office | Audiology | Elisabet Munson MS | | 2019 | Visit | | [facility] [address] | | | | | | [address] [place] | | | | | | [place] [address] | | | | | | [phone] | | | | | | | | +--------+ + + + + | 12/20/ | Office | Otolaryngology | Ulysses Genao MD | | | 2019 | Visit | | [address] [facility] | | | | | | [address] [place], | | | | | | [place] [address] | | | | | | [phone] | | | | | | | | +--------+ + + + + documented as of this encounter Visit Diagnoses + + | Diagnosis | + + | OLIVER (obstructive sleep apnea) - Primary Obstructive sleep apnea (adult) (pediatric) | + + documented in this encounter"
--- OUTSIDE RECORDS SUMMARY | ~2019-10-16 | XMS | Encounter Summary ---
Demographics + + + | Address | [address] | | | [place] [address] | + + + | Home Phone [...] Team Providers + +------+ + | Care Sed Middle School Teacher Name | Role | Phone | [...] + | 04/26/ | Refill | [facility] | Alanis, | Medication Refill | | 2018 | | MEDICINE [address] [place] [address] | MD [place] | | | | | [facility] | [address] [place] [address] | | | | | [place] [address] | [place] [address] | | | | | [phone] | [phone] | | | | | | | [...] | | | | | [place] [address] | | | | | | [phone] | | | | | | | | +--------+ + + + + | 12/20/ | Office | Audiology | DarioElisabet ramires MS | | | 2019 | Visit | | [facility] [address] | | | | | | [address] [place] | | | | | | [place], [place] [address] | | | | | | [phone] | | | | | | | | +--------+ + + + + | 12/20/ | Office | Otolaryngology | Ulysses Genao MD | | | 2019 | Visit | | [address] [place] | | | | | | [address] [place], | | | | | | [place] [address] | | | | | | [phone] | | | | | | | | +--------+ + + + + documented as of this encounter Visit Diagnoses Not on filedocumented in this encounter"
--- OUTSIDE RECORDS SUMMARY | ~2019-10-16 | XMS | Encounter Summary ---
Demographics + + + | Address | [address] | | | [place] [address] | + + + | Home Phone [...] Providers + +------+ + | Care Sales Communications Manager Name | Role | Phone [...] + + | 07/01/ | Telephone | [facility] | Alanis, | Foot Pain | | 2018 | | MEDICINE [address] [place] [address] | MD [place] | | | | | [facility] | [address] [place] [address] | | | | | [place] [address] | [place] [address] | | | | | [phone] | [phone] | | | | | | | [...] | | | | | [place] [address] | | | | | | [phone] | | | | | | | | +--------+ + + + + | 12/20/ | Office | Audiology | Elisabet Munson MS | | 2019 | Visit | | [facility] [address] | | | | | | [address] [place] | | | | | | [place] [address] | | | | | | [phone] | | | | | | | | +--------+ + + + + | 12/20/ | Office | Otolaryngology | Ulysses Genao MD | | | 2020 | Visit | | [address] [place] | | | | | | [address] [place], | | | | | | [place] [address] | | | | | | [phone] | | | | | | | | +--------+ + + + + documented as of this encounter Visit Diagnoses Not on filedocumented in this encounter"
--- OUTSIDE RECORDS SUMMARY | ~2019-10-16 | XMS | Encounter Summary ---
Demographics + + + | Address | [address] | | | [place] [address] | + + + | Home Phone [...] Providers + +------+ + | Care Visual Merchandising Coordinator Name | Role | Phone | [...] Xray | | | | | | [place], | [address] | | | | | Sacroiliitis | Carlos Armijo MD | [place], | | | | | , not | [address] | [place] | | | | | elsewhere | [facility] | [address] | | | | | classified | [place] | Phone: | | | | | ([facility]) | [address] | [phone] | | | | | Procedures | Phone: | Fax: | | | | | [place] INJECT SI | [phone] | [phone] | | | | | JOINT | Fax: | | | | | | ARTHRGRPHY&/ | [phone] | | | | | | ANES/STEROID | | | | | | | W/IMAGE [place] | | | | | | [...] + + | 02/27/ | Hospital | [facility] | Joe, | Bilateral | | 2015 | Encounter | MED CTR XRAY [address] | MARY Montero [address] | sacroiliitis (HCC) | | | | [address] [place] | [facility] [address] | (Primary Dx); | | | | [place] [address] | [place] [address] | Chronic low back | | | | [phone] | [phone] | pain; SCOLIOSIS , | | | | | | IDIOPATHIC; S/P | | | | | Content Creation Manager [facility]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; | | | | [...] | | | | | [place] [address] | | | | | | [phone] | | | | | | | | +--------+ + + + + | 12/20/ | Office | Audiology | Elisabet Munson MS | | | 2019 | Visit | | [facility] [address] | | | | | | [address] [place] | | | | | | [place] [address] | | | | | | [phone] | | | | | | | | +--------+ + + + + | 12/20/ | Office | Otolaryngology | Ulysses Genao MD | | | 2019 | Visit | | [address] | | | | | | [address] [place], | | | | | | [place] [address] | | | | | | [phone] | | | | | | | [...] 720.0 Belinda Meehan presents to the | [facility] | | fluoroscopy suite for fluoroscopically guided bilateral sacroiliac [facility] | | joint steroid injections as [...] + + | Performing | Address | City/State/[facility] | Phone Number | | Organization | | | | + + + + + | [facility] | [address] | [place], [place] | [phone] | | [facility] | | [address] | | | - IMAGING | | [...] 720.0 Belinda Meehan presents to the | [facility] | | fluoroscopy suite for fluoroscopically guided bilateral sacroiliac [facility] | | joint steroid injections as [...] | [facility] | [address] | [place], [place] | [phone] | | [facility] | | [address] | | | - IMAGING | | [...] | | | | | ONCE, Hermes 02/27/15 at 1430, For 1 | | | | | | | dose, Shake well. Not for IV | | | | | | | use., Radiology | | | | | | + +-------+ +-------+---+---+ +---+---+ | | | +---+---+ documented in this encounter"
--- OUTSIDE RECORDS SUMMARY | ~2019-10-16 | XMS | Encounter Summary ---
Demographics + + + | Address | [address] | | | [place] [address] | + + + | Home Phone [...] Acute pain | Emmy-Tajt | [address] | | | | | of right | i, | [place], | | | | | shoulder | [place] | [place] | | | | | Procedures | , MD [address] | [address] | | | | | MRI Shoulder | [address] | Phone: | | | | | Right wo | [place], | [phone] | | | | | Contrast | [place] | Fax: | | | | | | [address] | [phone] | | | | | | Phone: | | | | | | | [phone] | | | | | | | Fax: | | | | | | | [phone] | | +--------+--------+ + + + + [...] Acute pain | Emmy-Tajt | [address] | | | | | of right | i, | [place], | | | | | shoulder | [place] | [place] | | | | | Procedures | , [address] | [address] | | | | | MRI Shoulder | [address] | Phone: | | | | | Right wo | [place], | [phone] | | | | | Contrast | [place] | Fax: | | | | | | [address] | [phone] | | | | | | Phone: | | | | | | | [phone] | | | | | | | Fax: | | | | | | | [phone] | | +--------+--------+ + + + + Encounter Details +--------+ + + + + | Date | Type | Department | Care Team | Description | +--------+ + + + + | 02/17/ | Hospital | [facility] | Emmy-Kamlesh, | Acute pain of right | | 2018 | Encounter | MED CTR MRI [address] | MD [place] | shoulder | | | | [address] [place], | [address] [place] | | | | | [place] [address] | [place] [address] | | | | | [phone] | [phone] | | | | | | | [...] | | | | | | [place] [address] | | | | | | [phone] | | | | | | | | +--------+ + + + + | 12/20/ | Office | Audiology | Elisabet Munson MS | | | 2019 | Visit | | [facility] [address] | | | | | | [address] [place] | | | | | | [place] [address] | | | | | | [phone] | | | | | | | | +--------+ + + + + | 12/20/ | Office | Otolaryngology | Ulysses Genao MD | | | 2019 | Visit | | [address] | | | | | | [address] [place], | | | | | | [place] [address] | | | | | | [phone] | | | | | | | [...] + + | Tawanda, Ollie Results In 02/17/2018 2:47 PM PDT | | TECHNIQUE: [...]
--- OUTSIDE RECORDS SUMMARY | ~2019-10-16 | XMS | Encounter Summary ---
Demographics + + + | Address | [address] | | | [place] [address] | + + + | Home Phone [...] Providers + +------+ + | Care Metal Cnc Operator Name | Role | Phone | [...] 12/10/ | Telephone | [facility] | Alanis, | Lab Results | | 2017 | | MEDICINE [address] [place] [address] | MD [place] | | | | | [facility] | [address] [place] [address] | | | | | [place] [address] | [place] [address] | | | | | [phone] | [phone] | | | | | | | [...] | | | | | [place] [address] | | | | | | [phone] | | | | | | | | +--------+ + + + + | 12/20/ | Office | Audiology | Elisabet Munson MS | | 2019 | Visit | | [facility] [address] | | | | | | [address] [place] | | | | | | [place] [address] | | | | | | [phone] | | | | | | | | +--------+ + + + + | 12/20/ | Office | Otolaryngology | Ulysses Genao MD | | | 2020 | Visit | | [address] | | | | | | [address] [place], | | | | | | [place] [address] | | | | | | [phone] | | | | | | | | +--------+ + + + + documented as of this encounter Visit Diagnoses Not on filedocumented in this encounter"
--- OUTSIDE RECORDS SUMMARY | ~2019-10-16 | XMS | Encounter Summary ---
Demographics + + + | Address | [address] | | | [place] [address] | + + + | Home Phone [...] Providers + +------+ + | Care Parachute Inspector Name | Role | Phone | [...] + + | 07/24/ | Office | [facility] Comprehensive | Delfina Lambert, | Chronic Bilateral | | 2008 | Visit | Pain Center at | ANP | Shoulder Pain | | | | [facility] | | (Primary Dx); Spinal | | | | [address] | | Fusion Lumbar spine | | | | Mailcode: CH15P | | ; LBP (Low Back | | | | [facility] | | Pain); Osteopenia; | | | | and Healing, | | Fibromyalgia | | | | Building | | syndrome 729.1; | | | | Floor [place], [place] | | Major Depressive | | | | [address] | | Disorder, Recurrent | | | | [phone] | | Episode, Moderate | | | [...] Belinda Meehan is a 48 y.o. female [facility] Comprehensive [...] drawing has be completed, which I reviewed. [facility] Brief Pain Inventory: (ten= worst [...] 300 mg) by oral route once daily mgkeaayygw-coxlwoksuzvgf-acqdoawe (FIORICET) 50-325-40 mg Oral Tablet take 2 [...] 278 01/18 Paniculectomy Hx lumbar fusion 05/2008 [id number] with bone spur removals Family History Problem [...] plain x rays of bilateral shoulders, today [facility] building third floor, I reviewed the [...] [facility] Mail code CH 4P [facility] [address] [place] [address] Ailyn Bello - 02/2009 3:13 PM [...] | | + +---------+ + + | [facility] DEPARTMENT OF | | | | [...]
--- OUTSIDE RECORDS SUMMARY | ~2019-10-16 | XMS | Encounter Summary ---
Demographics + + + | Address | [address] | | | [place] [address] | + + + | Home Phone [...] + +------+ + | Care Brazing Furnace Feeder Name | Role | Phone | [...] + + | 03/02/ | Office | [facility] | Emmy-Jeffti, | Neck pain on right | | 2018 | Visit | MEDICINE [address] | MD [place] | side (Primary Dx); | | | | [address] [place] | [address] [place] | Primary stabbing | | | | [place] [address] | [place] [address] | headache; | | | | [phone] | [phone] | Non-intractable | | | | | [...] Medical Student - 03/02/2018 9:30 AM PDT [facility] PROGRESS NOTE Pt. Name/Age/: Belinda Meehan 58 y.o. 1960 Med. Record Number: [id number] HPI: Belinda Meehan is a 58 y.o. [...] insufficiency Coccydynia COPD (chronic obstructive pulmonary disease) ([facility]) Depression Diarrhea Dumping syndrome Fall at home Fatigue fracture of vertebra Fibromyalgia Full dentures GERD (gastroesophageal reflux disease) Glaucoma Hyperparathyroidism ([facility]) Hypothyroidism IBS (irritable bowel syndrome) Idiopathic scoliosis Leg edema Low back pain Lumbar postlaminectomy syndrome Lumbar radiculopathy primarily right 01/04/2015 Meniere syndrome Migraine with aura Migraines Muscle cramping Muscle spasm Myalgia Nonalcoholic hepatosteatosis Obesity Opioid dependence ([facility]) Orthostatic hypotension OLIVER (obstructive sleep apnea) Osteoarthritis, generalized Osteopenia Osteoporosis Peripheral neuropathy Rheumatoid arthritis ([facility]) Right arm pain 01/04/2015 RLS [...] PROCEDURE UNIT Allergies Allergen Reactions Levofloxacin Hives,Itching,Rash Dlqnndoegf-Dahf-Kuxbswvn Hives,Rash Cephalexin Hives Ciprofloxacin Hives,Rash Clarithromycin Hives,Rash [...] | | | | | [place] [address] | | | | | | [phone] | | | | | | | | +--------+ + + + + | 12/20/ | Office | Audiology | Elisabet Munson MS | | | 2019 | Visit | | [facility] [address] | | | | | | [address] [place] | | | | | | [place] [address] | | | | | | [phone] | | | | | | | | +--------+ + + + + | 12/20/ | Office | Otolaryngology | Ulysses Genao MD | | | 2019 | Visit | | [address] | | | | | | [address] [place], | | | | | | [place] [address] | | | | | | [phone] | | | | | | | [...] 101 | 70 - 109 mg/dL | [facility] | | | | | | [facility] | | | | | | [facility] | | | | | | C[facility] - | | | | | | LABORATORY | | + + + + + + | BUN | 9 | 7 - 18 mg/dL | [facility] | | | | | | [facility] | | | | | | [facility]ICAL | | | | | | CENTER - | | | | | | LABORATORY | | + + + + + + | Creatinine | 0.83 | 0.60 - 1.30 | [facility] | | | | | mg/dL | [...] | | MEDICAL | | | | mL/min/1.60d9Qdcy than | | CENTER - | | [...] [address] | [place] | [phone] | | [facility] | | [address] | | | - LABORATORY | | [...] [address] | [place] | [phone] | | [facility] | | [address] | | | - LABORATORY | | [...] ST. | [address] | [place], [place] | [phone] | | [facility] | | [address] | | | - LABORATORY | | [...]
--- OUTSIDE RECORDS SUMMARY | ~2019-10-16 | XMS | Encounter Summary ---
Demographics + + + | Address | [address] | | | [place] [address] | + + + | Home Phone [...] Providers + +------+ + | Care Lead Ingot Molder Name | Role | Phone | [...] | | | | Mailcode: L223A | [place], [place] | | | | | [facility] | [address] | | | | | [address] [place], [place] | [phone] | | | | | [address] | | | | | | [phone] | | | +--------+ + + + [...]
--- OUTSIDE RECORDS SUMMARY | ~2019-10-16 | XMS | Encounter Summary ---
Demographics + + + | Address | [address] | | | [place] [address] | + + + | Home Phone [...] Team Providers + +------+ + | Care Cna Pct Name | Role | Phone | + [...] 05/28/ | Office | [facility] at [facility] | Lukasz Charles, | Major Depressive | | 2006 | Visit | [address] | PhD [address] | Disorder, Recurrent | | | | Mailcode: CH15P | [place], [place] | Episode, Moderate | | | | [facility] | [address] | ([facility]); LBP (Low Back | | | | and Healing, | [phone] | Pain); DJD | | | | | | (Degenerative Joint | | | | Floor [place], [place] | | Disease) of Knee; | | | | [address] | | Other Pain Disorders | | | | [phone] | | Related to | | | [...] she is having some acute illness. Diagnosis: Reading I: 1. (296.32) Major depressive disorder, recurrent, moderate. 2. (309.24) Adjustment disorder with anxiety. 3. 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 Reading II: Deferred Reading III: abdominal pain, migraine headache, low back pain. Reading IV: low finances Reading V: GAF 55-60 Plan: Return with next medical follow-up appointment. Check mood, knee surgery, relaxation, acti vity, distraction. Continue cognitive/behavioral therapy. Total time spent with patient was approximately 45 minutes. LUKASZ CHARLES [facility] [address] [facility]th [place] [address] documented in this encount er Plan of Treatment + + +--------+ + + | Name | Type | Priori | Associated Diagnoses | Order Schedule | | | | ty | | | + + +--------+ + + | ME PSYCHOTHERPY, | Procedures | Routin | Major [...]
--- OUTSIDE RECORDS SUMMARY | ~2019-10-16 | XMS | Encounter Summary ---
Demographics + + + | Address | [address] | | | [place] [address] | + + + | Home Phone [...] Team Providers + +------+ + | Care Fashion Adviser Name | Role | Phone | [...] ANP | | | | | [facility] | | | | | | [address] | | | | | | Mailcode: CH15P | | | | | | [place] [facility] | | | | | | and Healing, | | | | | | | | | | | | Floor [place], [place] | | | | | | [address] | | | | | | [phone] | | | +--------+ + + + [...]
--- OUTSIDE RECORDS SUMMARY | ~2019-10-16 | XMS | Encounter Summary ---
Demographics + + + | Address | [address] | | | [place] [address] | + + + | Home Phone [...] Providers + +------+ + | Care Civil Engineer In Training Name | Role | Phone [...] | | right | [address] | [address] Phone: | | | | | supraspinatu | [place], | [phone] | | | | | s tendon, | [place] | Fax: | | | | | initial | [address] | [phone] | | | | | encounter | Phone: | | | | | | | [phone] | | | | | | | Fax: | | | | | | | [phone] | | +--------+ + + + + [...] pain | Emmy-Tajt | [address] | | | | | of right | i, | [place], | | | | | shoulder | [place] | [place] | | | | | Procedures | , MD [address] | [address] | | | | | MRI Shoulder | [address] | Phone: | | | | | Right wo | [place], | [phone] | | | | | Contrast | [place] | Fax: | | | | | | [address] | [phone] | | | | | | Phone: | | | | | | | [phone] | | | | | | | Fax: | | | | | | | [phone] | | +--------+--------+ + + + + [...] | 01/15/ | Office | [facility] | Alanis, | Acute pain of right | | 2017 | Visit | MEDICINE [address] [place] [address] | MD [place] | shoulder (Primary | | | | [facility] | [address] [facility] | Dx); Chronic | | | | [place] [address] | [place] [address] | diarrhea; Fatty | | | | [phone] | [phone] | liver; S/P bariatric | | | [...] Procedure: COLONOSCOPY; Surgeon: Luther Brito MD; Location: [facility] MEDICAL PROCEDURE UNIT DILATION AND CURETTAGE OF UTERUS ELBOW SURGERY FINGER TRIGGER RELEASE 2002 FINGER TRIGGER RELEASE 2009 GASTRIC BYPASS SURGERY 2004 HYSTERECTOMY 05/14/1980 JOINT REPLACEMENT Bilateral 2007,2008 KNEE ARTHROSCOPY 2005 LAPAROSCOPY 01/27/2015 LAPAROTOMY 2008 ROTATOR CUFF REPAIR 2005 SPINE SURGERY TONSILLECTOMY 1964 UPPER GASTROINTESTINAL ENDOSCOPY N/A 12/18/2017 Procedure: EGD; Surgeon: Luther Brito MD; Location: [facility] MEDICAL PROCEDURE UNIT CURRENT [...] (See Comments) Confused and questionable for seizures Rxagkdsgzi-Tzmd-Hbcsjuev Hives and Rash Cephalexin Hives Ciprofloxacin Hives [...] Note: Parts of this documentwere created using Dot VN speech recognition software. As a r esult, [...] | | | | | [place] [address] | | | | | | [phone] | | | | | | | | +--------+ + + + + | 12/20/ | Office | Audiology | Elisabet Munson MS | | | 2019 | Visit | | [facility] [address] | | | | | [address] [place] | | | | | | [place] [address] | | | | | | [phone] | | | | | | | | +--------+ + + + + | 12/20/ | Office | Otolaryngology | Ulysses Genao MD | | | 2019 | Visit | | [address] | | | | | | [address] [place], | | | | | | [place] [address] | | | | | | [phone] | | | | | | | | +--------+ + + + + + + +--------+ + + | Name | Type | Priori | Associated Diagnoses | Order Schedule | | | | ty | | | + + +--------+ + + | * [facility] | Outpatient | Routin | Acute pain [...] + | Ollie Neff Results In - 02/17/2018 2:47 PM PDT [...]
--- OUTSIDE RECORDS SUMMARY | ~2019-10-16 | XMS | Encounter Summary ---
Demographics + + + | Address | [address] | | | [place] [address] | + + + | Home Phone [...] Providers + +------+ + | Care Crisis Intervention Counselor Name | Role | Phone | [...] as of this encounter Progress Notes Interface, Fundraising Sale Representative In - 01/12/2005 9:01 AM PDT [id number] [facility] Date: 05/20/2004 Clinic: Morbid [...] Surgery Chris Padgett M.D. MS / HS [id number] / [id number] / [id number] / [id number] documented i n this encounter Plan of Treatment Not on filedocumented as of this encounter Visit Diagnoses Not on filedocumented in this encounter"
--- OUTSIDE RECORDS SUMMARY | ~2019-10-16 | XMS | Encounter Summary ---
Demographics + + + | Address | [address] | | | [place] [address] | + + + | Home Phone [...] Providers + +------+ + | Care Assistant Property Manager Name | Role | Phone | [...] | | Osteoporosis | i, | [address] | | | | | , | [place] | [place], | | | | | unspecified | , MD [address] | [place] [address] | | | | | osteoporosis | [address] | Phone: | | | | | type, | [place], | [phone] | | | | | unspecified | [place] | Fax: | | | | | pathological | [address] | [phone] | | | | | fracture | Phone: | | | | | | presence | [phone] | | | | | | Procedures | Fax: | | | | | | [place] | [phone] | | | | | | ZOLEDRONIC | | | | | | | ACID 1MG | | | +--------+ + + + + + Encounter Details +--------+ + + + + | Date | Type | Department | Care Team | Description | +--------+ + + + + | 08/18/ | Hospital | [facility] | [place]is, | Osteopenia, | | 2018 | Encounter | MED CTR OP INFUSION | MD [place] | unspecified location | | | | [address] | [address] [facility] | | | | | [place] Zhao MD | [place] [address] | | | | | [address] | [phone] | | | | | [phone] | | | +--------+ + + + [...] Scr was [facility]. Marlyn PharmD reports it was 0.81 mg/dL. [...] | | | | | [place] [address] | | | | | | [phone] | | | | | | | | +--------+ + + + + | 12/20/ | Office | Audiology | Elisabet Mnuson MS | | | 2019 | Visit | | [facility] | | | | | | [place] [address] [address] | | | | | | [place] [address] | | | | | | [phone] | | | | | | | | +--------+ + + + + | 12/20/ | Office | Otolaryngology | Ulysses Genao MD | | | 2019 | Visit | | [address] | | | | | | [address] [place], | | | | | | [place] [address] | | | | | | [phone] | | | | | | | [...]
--- OUTSIDE RECORDS SUMMARY | ~2019-10-16 | XMS | Encounter Summary ---
Demographics + + + | Address | [address] | | | [place] [address] | + + + | Home Phone [...] Providers + +------+ + | Care Copy Writer Name | Role | Phone | [...] of this encounter Progress Notes Interface, Electronic Device Monitor In - 06/23/2006 2:36 AM PST [id number] GEOVANNI SKELTON Molly [id number] Clinic Date: 05/05/2006 Clinic: Endocrinology Subjective: Belinda [...] replacement. Beto Meeks M.D. PD / HS [id number] / [id number] / [id number] / cc: Pedrito Gutierrez M.D. [address] [place] [address] Joanna Arshad M.D. [facility] Electronically signed by Beto Meeks 06-20-2006 11:48:11 PM documented i n this encounter Plan of Treatment Not on filedocumented as of this encounter Visit Diagnoses Not on filedocumented in this encounter"
--- OUTSIDE RECORDS SUMMARY | ~2019-10-16 | XMS | Encounter Summary ---
Demographics + + + | Address | [address] | | | [place] [address] | + + + | Home Phone [...] Team Providers + +------+ + | Care Corsetier Name | Role | Phone | + [...] + | 08/16/ | Refill | [facility] | [place]is, | Medication Refill | | 2019 | | MEDICINE [address] | MD [place] | | | | | [facility] | [address] [place] [address] | | | | | [place] [address] | [place] [address] | | | | | [phone] | [phone] | | | | | | | [...] | | | | | [place] [address] | | | | | | [phone] | | | | | | | | +--------+ + + + + | 12/20/ | Office | Audiology | DarioElisabet ramires MS | | | 2019 | Visit | | [facility] [address] | | | | | [address] [place] | | | | | | [place], [place] [address] | | | | | | [phone] | | | | | | | | +--------+ + + + + | 12/20/ | Office | Otolaryngology | Ulysses Genao MD | | | 2019 | Visit | | [address] | | | | | | [address] [place], | | | | | | [place] [address] | | | | | | [phone] | | | | | | | | +--------+ + + + + documented as of this encounter Visit Diagnoses Not on filedocumented in this encounter"
--- OUTSIDE RECORDS SUMMARY | ~2019-10-16 | XMS | Encounter Summary ---
Demographics + + + | Address | [address] | | | [place] [address] | + + + | Home Phone [...] Providers + +------+ + | Care General Dentist Name | Role | Phone | + [...] | | | | [address] Physician's | [place], [place] | | | | | [address] | [address] | | | | | [place], [place] | [phone] | | | | | [address] | | | | | | [phone] | | | +--------+ + + + [...]
--- OUTSIDE RECORDS SUMMARY | ~2019-10-16 | XMS | Encounter Summary ---
Demographics + + + | Address | [address] | | | [place] [address] | + + + | Home Phone [...] Providers + +------+ + | Care Store Stock Help Name | Role | Phone | + +------+ + | [place] Thapa | PCP | | | MD | | | + +------+ + Encounter Details +--------+ + + + + | Date | Type | Department | Care Team | Description | +--------+ + + + + | 05/10/ | Orders Only | [facility] | [place]is, | Chronic bilateral | | 2017 | | MEDICINE [address] | MD [place] | low back pain with | | | | Street [place] | [address] [facility] | left-sided sciatica | | | | [place] [address] | [place] [address] | (Primary Dx) | | | | [phone] | [phone] | | | | | | | [...] | | | | | [place] [address] | | | | | | [phone] | | | | | | | | +--------+ + + + + | 12/20/ | Office | Audiology | Elisabet Munson MS | | | 2019 | Visit | | [facility] [address] | | | | | | [place] [address] [place] | | | | | | [place] [address] | | | | | | [phone] | | | | | | | | +--------+ + + + + | 12/20/ | Office | Otolaryngology | Ulysses Genao MD | | | 2020 | Visit | | [address] | | | | | | [address] [place], | | | | | | [place] [address] | | | | | | [phone] | | | | | | | [...]
--- OUTSIDE RECORDS SUMMARY | ~2019-10-16 | XMS | Encounter Summary ---
Demographics + + + | Address | [address] | | | [place] [address] | + + + | Home Phone [...] Providers + +------+ + | Care Fisher Purse Seine Name | Role | Phone | + [...] | | | | | | [address] [place], [place] | | | | | | [address] | | | | | | [phone] | | | +--------+ + + + [...]
--- OUTSIDE RECORDS SUMMARY | ~2019-10-16 | XMS | Encounter Summary ---
Demographics + + + | Address | [address] | | | [place] [address] | + + + | Home Phone [...] Providers + +------+ + | Care Drafter Electronic Name | Role | Phone | + [...] + | 06/07/ | Refill | [facility] | Alanis, | Medication Refill | | 2017 | | MEDICINE [address] [place] [address] | MD [place] | | | | | [facility] | [address] [place] [address] | | | | | [place] [address] | [place] [address] | | | | | [phone] | [phone] | | | | | | | [...] | | | | | [place] [address] | | | | | | [phone] | | | | | | | | +--------+ + + + + | 12/20/ | Office | Audiology | DarioElisabet ramires MS | | | 2019 | Visit | | [facility] [address] | | | | | [address] [place] | | | | | | [place], [place] [address] | | | | | | [phone] | | | | | | | | +--------+ + + + + | 12/20/ | Office | Otolaryngology | Ulysses Genao MD | | | 2019 | Visit | | [address] | | | | | | [address] [place], | | | | | | [place] [address] | | | | | | [phone] | | | | | | | | +--------+ + + + + documented as of this encounter Visit Diagnoses Not on filedocumented in this encounter"
--- OUTSIDE RECORDS SUMMARY | ~2019-10-16 | XMS | Encounter Summary ---
Demographics + + + | Address | [address] | | | [place] [address] | + + + | Home Phone [...] Status Post | | 2007 | | [place] [address] | [address] [facility] | Bariatric Surgery | | | | Ave Mailcode: CH4S | [address] | (Primary Dx) | | | | [facility] | [place], [place] | | | | | and Healing, | [address] | | | | | Building [address]th | [phone] | | | | | Floor [place], [place] | | | | | | [address] | | | | | | [phone] | | | +--------+ + + + [...] | | | | | ng/mLPerformed by [facility] | | | | | | [facility],[address] | | | | | | [place], [facility] [place] [facility] [place] [address] | | | | | | [phone] | | | | | | Sincere [...] [facility] | [address] | [place], [place] | | | [facility] | | [address] | | + + + + + [...] | + + + + + | [facility] | [address] | [place] [address] | | | LABORATORY | | | [...] RLB ([facility]) | | | [facility] [place] [address] | | | [place] [address] | | + + + + + + + + | Performing | Address | City/State/Zipcode | Phone Number | | Organization | | | | + + + + + | [facility] | [address] | [place] [address] | | | LABORATORY | | | [...] RL ([facility]) | | | [facility] [place] [address] [address] | | | [place] [address] | | + + + + + + + + | Performing | Address | City/State/Zipcode | Phone Number | | Organization | | | | + + + + + | [facility] | [address] | [place] [address] | | | LABORATORY | | | [...] Performed At | + + + | [address] Estimated GFR > 60 mL/min/1.73 sq m if non- | [facility] | | [address] Estimated GFR > 60 mL/min/1.73 sq m [...] + + | [facility] DEPARTMENT OF | [address] | [place] [address] | | | PATHOLOGY | [address] | | | + + + + + | [place] DEPARTMENT | [address] | [place] [address] | | | PATHOLOGY | [address] [...] + + | [facility] | [address] | [place] [address] | | | PATHOLOGY | [address] | | | + + + + + | [facility] | [address] | [place] [address] | | | PATHOLOGY | [address] | | | + + + + + documented in this encounter Visit Diagnoses + + | Diagnosis | + + | Status post bariatric surgery - Primary Bariatric surgery status | + + documented in this encounter"
--- OUTSIDE RECORDS SUMMARY | ~2019-10-16 | XMS | Encounter Summary ---
Demographics + + + | Address | [address] | | | [place] [address] | + + + | Home Phone [...] + +------+ + | Care Sales Representative Business Courses Name | Role | Phone | [...] + + | 06/22/ | Office | [facility] | Delfina Molina, | Herniated Lumbar | | 2006 | Visit | Pain Center at | ANP | Intervertebral Disc | | | | [facility] | | L4-5; Spondylosis | | [...] | Dependence, | | | | Floor [place], [place] | | Continuous ([facility]); | | | | [address] | | Major Depressive | | | | [phone] | | Disorder, Recurrent | | | | | | Episode, Moderate | | | | | | ([facility]); Adjustment | | | | | | [...] Belinda Meehan is a 46 y.o. female [facility] Pain Center Return [...] the past week of Fentanyl patch and Farner. Trileptal he lps with right leg pain and sleep. "been sleeping great". Expectations for this visit include : discussing the sticking problems with the fentanyl pa tc and her insurance not being willing prescribe Farner. There have been no other change in [...] an d her insurance stopped coverage of Farner. I believe doing pool therapy three times [...] might be d iverting or using her Farner? Until I know more I will not be prescribing a breakthrough sina n medication but am willing to prescribe early for her fentanyl. I have asked Belinda to picker tender helper and be responsible for her own medication picker tender helper. I discussed with Tasha Nolasco CMA the issue of Insurance PA for Farner this was in progress as of the time the patient was here. At the time I completed this note we had word that Ins urance would not approve coverage. I will discuss this with Belinda once I know her story o n where the dispensed #70 Farner is. [ Tasha reported calling [employer] who reported: Belinda's s on picking up [...] with each exchange. 3. Patient instructed to picker tender helper and be responsible for her own medications. 4. Follow up in two weeks to review pain management. Once she is again stable on the fen tanyl patch I will transfer her prescribing to Dr. Gutierrez. She has completed the Multidisci plinary patient Care program here at the [facility]. DELFINA MOLINA [facility] Center Mail code CH 4P [facility] and [address] [address] Tasha Can - 12/04/2006 7:43 [...] + + | Opioid dependence, continuous ([facility]) Opioid type dependence, continuous | + + [...]
--- OUTSIDE RECORDS SUMMARY | ~2019-10-16 | XMS | Encounter Summary ---
Demographics + + + | Address | [address] | | | [place] [address] | + + + | Home Phone [...] Providers + +------+ + | Care Paper Making Machine Operator Name | Role | [...] of this encounter Progress Notes Interface, Hand Cigar Making Supervisor In - 08/19/2005 2:05 AM PST [id number] [facility] Date: 07/24/2005 Clinic: Hematology [...] full and complete summary. Lukasz Sellers M.D. sprinkler fitter NANCY / SHARIF [id number] / [id number] / [id number] / [id number] cc: Pedrito Gutierrez M.D. [address] [place] [address] Electronically signed by Lukasz Sellers 08-18-2005 01:28:24 PM documented i n this encounter Plan of Treatment Not on filedocumented as of this encounter Visit Diagnoses Not on filedocumented in this encounter"
--- OUTSIDE RECORDS SUMMARY | ~2019-10-16 | XMS | Encounter Summary ---
Demographics + + + | Address | [address] | | | [place] [address] | + + + | Home Phone [...] Team Providers + +------+ + | Care Wafer Slicer Name | Role | Phone | + [...] + + | 03/17/ | Telephone | [facility] | Alanis, | TCM - Hosp FU | | 2017 | | MEDICINE [address] [place] [address] | MD Petrona | | | | | [facility] | [address] [place] [address] | | | | | [place] [address] | [place] [address] | | | | | [phone] | [phone] | | | | | | | [...] | | | | | [place] [address] | | | | | | [phone] | | | | | | | | +--------+ + + + + | 12/20/ | Office | Audiology | Elisabet Munson MS | | | 2019 | Visit | | [facility] [address] | | | | | | [address] [place] | | | | | | [place], [place] [address] | | | | | | [phone] | | | | | | | | +--------+ + + + + | 12/20/ | Office | Otolaryngology | Ulysses Genao MD | | | 2019 | Visit | | [address] | | | | | | [address] [place], | | | | | | [place] [address] | | | | | | [phone] | | | | | | | | +--------+ + + + + documented as of this encounter Visit Diagnoses Not on filedocumented in this encounter"
--- OUTSIDE RECORDS SUMMARY | ~2019-10-16 | XMS | Encounter Summary ---
Demographics + + + | Address | [address] | | | [place] [address] | + + + | Home Phone [...] Providers + +------+ + | Care Strap Machine Operator Name | Role | Phone [...] | Pain | Diagnoses | Emmy | Resident Services Director Chh1 | | | | Management | [...] | | | | | [facility] | [address] | Building | | | | | disease, | Phone: | [address] | | | | | bilateral | [phone] | [place], [place] | | | | | Rheumatoid | Fax: | [address] | | | | | arthritis, | [phone] | Phone: | | | | | unspecified | | [phone] | | | | | | | Fax: | | | | | Postlaminect | | [phone] | | | | | toya | [...] + + | 02/05/ | Office | [facility] | Shalonda Garcia, | Post laminectomy | | 2017 | Visit | Pain Center at | GEROPSYCHOLOGIST [address] | syndrome (Primary | | | | [facility] | [place], [place] | Dx); Intractable | | | | [address] | [address] | chronic migraine | | | | Mailcode: CH15P | [phone] | without aura and | | | | [place] for [facility] | | with status | | | | and Healing, | | migrainosus; | | | | | | Fibromyalgia | | | | Floor [place], [place] | | | | | | [address] | | | | | | [phone] | | | +--------+---------+ + + + [...] Discuss with your PCP, a referral to [facility] for discussion regarding spinal cord stimulator Shalonda Mustafa DNP, GEROPSYCHOLOGIST-C Adult Pain Service /[facility] [place] [address] documented in this encounter Progress Notes Amie Jing - 02/05/2017 1:35 PM PDT Date: 02/05/2017 was referred for pain management consultation by Sulaiman Whitlock MD [address] [place] [address] Reason for consult: cervical radiculopathy, low back [...] by her primary care pr magdy in [facility]. 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 She feels she is at the point where is not able to determine which medications are hel pful in improving her pain. She endorses incontinence symptoms. She reports there are "days I just want to " because her pain is so bad. 's treatment for this pain complaint has included: MEDICATIONS: - Gabapentin - [place] - Butran - Cymbalta - Fentanyl Patches NON-MEDICATION THERAPIES: - Physical Therapy - Exercise - Heat/Ice - Pool Therapy - Brace/Support - TENS INTERVENTIONS: - Spinal surgery x3, Laminectomy unknown level - Epidural Steroid Injections - Trigger Point Injections lives in a single family home in [place], [place]. She is not currently working , she receives disability. As a result of her pain, notes multiple changes in her life, including limiting her ability to perform routine tasks. 's goals from today's appointment include: consultation only (advice only to you and your primary care physician), counseling, drug treatment, help in coping with the pain a nd stress management. 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 Headache HTN (hypertension) Hypothyroidism 11/11/2006 IBS (irritable bowel syndrome) Internal hemorrhoid Kidney stone Major depressive disorder, recurrent episode, moderate ([facility]) 07/31/2006 Metabolic syndrome X 250.80 Metabolic syndrome X 250.80 Optic nerve hemorrhage left eye Other general symptoms Pneumonia PUD (peptic ulcer disease) RA (rheumatoid arthritis) ([facility]) Radiculitis, lumbosacral 03/03/2008 Reduced vision Scoliosis Sleep apnea Spondylosis with myelopathy, lumbar region 07/02/2006 Vertebral fracture T7,8,9 Xray T spine 2003 Past Surgical History Procedure Laterality Date Salpingo-oophorectomy Colonoscopy 03/2006 Tonsillectomy Pr d&c after delivery Pr inject trigger point, 1 or 2 Knee replacement 02/2007 Left knee Knee replacement 08/2007 right knee Lumbar fusion 05/2008, '11 & '12 L5-P9spskdt with bone spur removals Appendectomy Cholecystectomy section [...] Hives Mainly in the legs Clindamycin Codeine Amfkuad-Wkcehsvqqo-Qfv-Caff Balance problems Fioricet W/Codeine [Nuzyrypdcr-Gtwbiasexh-Qrg-Cod] Keflex [Cephalexin] Ketorolac Unknown Morphine IM ( only in [facility]) made gut pain worse 08/27/06: Trial [...] and summary of old medical records (source: DuckDuck[employer]), as summarized in the body of the [...] by her primary care pr magdy in [facility]. She reports that this provider does not [...] Whitlock MD may consider a referral to [facility] for discu ssion regarding spinal cord stimulator -No follow up needed at this time 02/05/2017: I, Kathleen Riley am functioning as a director of medical education for MEGAN Dutta DNP I have reviewed and verified the above scribed note of my visit with this patient as record ed by Kathleen Riley. Shalonda Mustafa DNP, FNP-C Adult Pain Service /[facility] [address] [place] [address] Maris oCsta MA - 02/05/2017 1:35 PM PDT Review [...]
--- OUTSIDE RECORDS SUMMARY | ~2019-10-16 | XMS | Encounter Summary ---
Demographics + + + | Address | [address] | | | [place] [address] | + + + | Home Phone [...] Providers + +------+ + | Care Turntable Man Name | Role | Phone | [...] ANP | | | | | [facility] | | | | | | [address] | | | | | | Mailcode: CH15P | | | | | | [facility] | | | | | | and Healing, | | | | | | Building | | | | | | Floor [place], [place] | | | | | | [address] | | | | | | [phone] | | | +--------+ + + + [...]
--- OUTSIDE RECORDS SUMMARY | ~2019-10-16 | XMS | Encounter Summary ---
Demographics + + + | Address | [address] | | | [place] [address] | + + + | Home Phone [...] Providers + +------+ + | Care Public Events Facilities Rental Manager Name | Role | Phone [...] [address] | | | | | | [place], [place] | | | | | | [address] | | | | | | [phone] | | | +--------+ + + + [...]
--- OUTSIDE RECORDS SUMMARY | ~2019-10-16 | XMS | Encounter Summary ---
Demographics + + + | Address | [address] | | | [place] [address] | + + + | Home Phone [...] Team Providers + +------+ + | Care Can Tender Name | Role | Phone | [...] + +--------+ + + + | DC GI TRACT IMAGING, | | 05/12/2006 | | | | INTRALUMINAL | | | | | + +--------+ + + + documented in this encounter Visit Diagnoses Not on filedocumented in this encounter"
--- OUTSIDE RECORDS SUMMARY | ~2019-10-16 | XMS | Encounter Summary ---
Demographics + + + | Address | [address] | | | [place] [address] | + + + | Home Phone [...] Providers + +------+ + | Care Sanitary Aide Name | Role | Phone | [...] 11/11/ | Office | [facility] Center at [facility] | Lukasz Charles, | Major Depressive | | 2006 | Visit | [address] | PhD [address] | Disorder, Recurrent | | | | Mailcode: CH15P | [place], [place] | Episode, Moderate | | | | [facility] | [address] | ([facility]); Left Knee | | | | and Healing, | [phone] | Pain; Neck Pain; | | | | Building | | Spondylosis with | | | | Floor [place], [place] | | Myelopathy, Lumbar | | | | [address] | | Region; Chronic | | | | [phone] | | Abdominal Pain; | | | [...] has using good self-care skil ls. Diagnosis: Shirley I: 1. (296.32) Major depressive disorder, recurrent, moderate. 2. (309.24) Adjustment disorder with anxiety. 3. 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 Shirley II: Deferred Shirley III: abdominal pain, migraine headache, low back pain. Shirley IV: low finances Shirley V: GAF 55-60 Plan: Return in 2 weeks. Check niece's visit, pacing, relaxation, activity, distraction. Contin ue cognitive/behavioral therapy. Total time spent with patient was approximately 45 minutes. LUKASZ CHARLES PHD [facility] [address] [facility], [address] [place] [address] documented in this encount er Plan of [...] | ([facility]) Left Knee | | | | | [...]
--- OUTSIDE RECORDS SUMMARY | ~2019-10-16 | XMS | Encounter Summary ---
Demographics + + + | Address | [address] | | | [place] [address] | + + + | Home Phone [...] Providers + +------+ + | Care Baby Formula Worker Name | Role | Phone | [...] 2005 | Activity | TRACE Wilson MD [address] | | | | | [place] Mailcode: RPB07 | [place], [place] | | | | | [place], [place] | [address] | | | | | [address] | [phone] | | | | | [phone] | | | +--------+ + + + [...] | | | | | | 06:[facility] I have reviewed | | | [...] [facility] | [address] | [place] [address] | | | PATHOLOGY | [address] | | | + + + + + | [facility] DEPARTMENT OF | [facility] | [place] [address] | | | PATHOLOGY | [address] | | | + + + + + documented in this encounter Visit Diagnoses Not on filedocumented in this encounter"
--- OUTSIDE RECORDS SUMMARY | ~2019-10-16 | XMS | Encounter Summary ---
Demographics + + + | Address | [address] | | | [place] [address] | + + + | Home Phone [...] Team Providers + +------+ + | Care Reservation Sales Agent Name | Role | Phone [...] | | | | | Encounter | [place] | [place] | | | | | for | [address] | [address] | | | | | long-term | | Phone: | | | | | (current) | | [phone] | | | | | use of other | | Fax: | | | | | medications | | [phone] | | | | | LBP (low [...] 06/23/ | Office | Pain Center at [facility] | Lukasz Charles, | Major depressive | | 2013 | Visit | [address] | PhD [address] | disorder, recurrent | | | | Mailcode: CH15P | [place], [place] | episode, moderate | | | | [place] for [facility] | [address] | ([facility]) (Primary Dx); | | | | and Healing, | [phone] | LBP (low back pain); | | | | | | Adjustment disorder | | | | Floor [place], [place] | | with anxiety | | | | [address] | | | | | | [phone] | | | +--------+---------+ + + + [...] an appropriate candidate for a stimulator. Diagnosis: Wellington I: 1. (296.32) Major depressive disorder, recurrent, moderate. 2. (309.24) Adjustment disorder with anxiety. Wellington II: Deferred Wellington III: abdominal pain, migraine headache, low back pain, fibromyalgia. Wellington IV: low finances Wellington V: GAF 55-60 Plan: return in 1 month. Check mood, pain, activity, stress management. Ask about spinal cord stimulator, any changes at home. Continue cognitive/behavioral therapy. Total time spent with patient was approximately 45 minutes. LUKASZ CHARLES PHD [facility] [address] [place] [address], [address] [place] [address] documented in this en counter Plan of [...]
--- OUTSIDE RECORDS SUMMARY | ~2019-10-16 | XMS | Encounter Summary ---
Demographics + + + | Address | [address] | | | [place] [address] | + + + | Home Phone [...] Providers + +------+ + | Care Hot Mill Operator Name | Role | Phone [...] + + | 12/28/ | Telephone | [facility] | Alanis, | Radiology | | 2018 | | MEDICINE [address] [place] [address] | MD Petrona | Appointment | | | | [facility] | [address] [place] [address] | | | | | [place] [address] | [place] [address] | | | | | [phone] | [phone] | | | | | | | [...] | | | | | [place] [address] | | | | | | [phone] | | | | | | | | +--------+ + + + + | 12/20/ | Office | Audiology | Elisabet Munson MS | | 2019 | Visit | | [facility] [address] | | | | [address] [place] | | | | | | [place] [address] | | | | | | [phone] | | | | | | | | +--------+ + + + + | 12/20/ | Office | Otolaryngology | Ulysses Genao MD | | | 2020 | Visit | | [address] | | | | | | [address] [place], | | | | | | [place] [address] | | | | | | [phone] | | | | | | | | +--------+ + + + + documented as of this encounter Visit Diagnoses Not on filedocumented in this encounter"
--- OUTSIDE RECORDS SUMMARY | ~2019-10-16 | XMS | Encounter Summary ---
Demographics + + + | Address | [address] | | | [place] [address] | + + + | Home Phone [...] Team Providers + +------+ + | Care Astro Technician Name | Role | Phone | [...] | | | [facility] | [place], [place] | and counseling | | | | [address] | [address] | | | | | [address] | [phone] | | | | | [facility] | | | | | | Physician's | | | | | | Pavilion [place], | | | | | | [place] [address] | | | | | | [phone] | | | +--------+ + + + [...]
--- OUTSIDE RECORDS SUMMARY | ~2019-10-16 | XMS | Encounter Summary ---
Demographics + + + | Address | [address] | | | [place] [address] | + + + | Home Phone [...] Providers + +------+ + | Care Silver Buffer Name | Role | Phone | + +------+ + | [place] Thapa | PCP | | | MD | | | + +------+ + Reason for Visit + + + | Reason | Comments | + + + | Results, Imaging | outside imaging report from [facility] | + + + Encounter Details +--------+ + + + + | Date | Type | Department | Care Team | Description | +--------+ + + + + | 03/02/ | Telephone | [facility] | Alanis, | Results, Imaging | | 2019 | | MEDICINE [address] | MD Petrona | (outside imaging | | | | [address] [place] | [address] [facility] | report from St. | | | | [place] [address] | [place] [address] | [facility]) | | | | [phone] | [phone] | | | | | | | [...] | | | | | | [place] [address] | | | | | | [phone] | | | | | | | | +--------+ + + + + | 12/20/ | Office | Audiology | Elisabet Munson MS | | | 2019 | Visit | | [facility] [address] | | | | [address] [place] | | | | | | [place] [address] | | | | | | [phone] | | | | | | | | +--------+ + + + + | 12/20/ | Office | Otolaryngology | Ulysses Genao MD | | | 2019 | Visit | | [address] | | | | | | [address] [place], | | | | | | [place] [address] | | | | | | [phone] | | | | | | | | +--------+ + + + + documented as of this encounter Visit Diagnoses Not on filedocumented in this encounter"
--- OUTSIDE RECORDS SUMMARY | ~2019-10-16 | XMS | Encounter Summary ---
Demographics + + + | Address | [address] | | | [place] [address] | + + + | Home Phone [...] Providers + +------+ + | Care Parachute Officer Name | Role | Phone | + +------+ + | Pedrito Gutierrez MD | PCP | | + +------+ + Encounter Details +--------+ + + + + | Date | Type | Department | Care Team | Description | +--------+ + + + + | 05/20/ | Telephone | Digestive Health | Rohan Foley MD | | | 2005 | | [place] at [facility] [address] | | | | | | [address] | | | | | | Mailcode: Center | | | | | | for Health and | | | | | | [facility], Building [address] | | | | | | [place], [place] | | | | | | [address] | | | | | | [phone] | | | +--------+ + + + [...]
--- OUTSIDE RECORDS SUMMARY | ~2019-10-16 | XMS | Encounter Summary ---
Demographics + + + | Address | [address] | | | [place] [address] | + + + | Home Phone [...] Providers + +------+ + | Care Centrifugal Chiller Technician Name | Role | Phone | [...] Rd | | | | | | [place], [place] | | | | | | [address] | | | +--------+ + + + [...]
--- OUTSIDE RECORDS SUMMARY | ~2019-10-16 | XMS | Encounter Summary ---
Demographics + + + | Address | [address] | | | [place] [address] | + + + | Home Phone [...] Providers + +------+ + | Care Senior Financial Reporting Accountant Name | Role | Phone | + [...] | 2020 | Visit | MEDICINE [address] | MD Petrona | (Primary Dx); | | | | [facility] | [address] [place] [address] | Situational | | | | [place] [address] | [place] [address] | depression | | | | [phone] | [phone] | | | | | | | [...] Total Score 10 (08/15/19934) (Printable questionnaires in Libyan ) Interpretation of Total Score: 1-4 = [...] Surgeon: Luther Brito MD; Location: [facility] DILATION AND CURETTAGE OF UTERUS ELBOW SURGERY FINGER TRIGGER RELEASE 2002 FINGER TRIGGER RELEASE 2010 GASTRIC BYPASS SURGERY 2004 HYSTERECTOMY 05/14/1980 JOINT REPLACEMENT Bilateral 2006 2007 KNEE ARTHROSCOPY 2005 LAPAROSCOPY 01/27/2015 LAPAROTOMY 2008 ROTATOR CUFF REPAIR 2005 SPINE SURGERY TONSILLECTOMY 1964 UPPER GASTROINTESTINAL ENDOSCOPY N/A 12/18/2017 Procedure: EGD; Surgeon: Luther Brtio MD; Location: [facility] CURRENT MEDICATIONS Current [...] Allergen Reactions Ensure Diarrhea Food Diarrhea Lactose Apjupumuwx-Yjd-Xpoi-Codeine Other (See Comments) Balance problems Codeine Sulfate Nausea Only Food Allergy Formula Diarrhea Ensure Levofloxacin Hives, Itching and Rash Butalbital Ropinirole Amitriptyline Hcl Other (See Comments) Confused and questionable for seizures Oiekzwngiu-Jani-Opyruwrm Rash duplicate Awhnxpqalf-Rowt-Gaiativr Hives and Rash Cephalexin Hives Ciprofloxacin Hives and Rash Clarithromycin Hives and Rash Clindamycin Hcl Hives and Rash Doxycycline Rash Duloxetine Other (See Comments) Migraines and nausea Ketorolac Hives Levofloxacin Hives and Rash Morphine Swelling Penicillins Hives and Rash Ropinirole Hcl Hives Sulfamethoxazole-Trimethoprim Hives and Rash Tramadol Hcl Nausea Only FOLLOW-UP No follow-ups on file. Notes: 1. Parts of this documentwere created using Platial speech recognition software. As a resu lt, [...] | | | | | [place] [address] | | | | | | [phone] | | | | | | | | +--------+ + + + + | 12/20/ | Office | Audiology | Elisabet Munson MS | | | 2019 | Visit | | [facility] | | | | | | [place] [address] | | | | | | [place] [address] | | | | | | [phone] | | | | | | | | +--------+ + + + + | 12/20/ | Office | Otolaryngology | Ulysses Genao MD | | | 2020 | Visit | | [address] | | | | | | [address] [place], | | | | | | [place] [address] | | | | | | [phone] | | | | | | | [...]
--- OUTSIDE RECORDS SUMMARY | ~2019-10-16 | XMS | Encounter Summary ---
Demographics + + + | Address | [address] | | | [place] [address] | + + + | Home Phone [...] Providers + +------+ + | Care Lumber Mover Name | Role | Phone | + [...] | | | | Clinical Nutrition | [place], [place] | | | | | [address] | [address] | | | | | Loop Mailcode: OPC5 | [phone] | | | | | Outpatient Clinic | | | | | | [facility] | | | | | | [place] [address] | | | | | | [phone] | | | +--------+ + + + [...] | + + + + + | [facility] | [address] | [place] [address] | | | LABORATORY | | | [...] | pg/mL | | | | | [facility] | | | | | | Laboratory. | | | | + + + + + + + + | Specimen | + + | | + + + + + + + | Performing | Address | City/State/Zipcode | Phone Number | | Organization | | | | + + + + + | [facility] | [address] | [place] [address] | | | LABORATORY | | | [...] + + | [facility] DEPARTMENT OF | [address] | [place] [address] | | | PATHOLOGY | [address] | | | + + + + + | [facility] DEPARTMENT OF | [address] | [facility] [place] [address] | | | PATHOLOGY | [address] [...] | [facility] DEPARTMENT OF | [address] | [place] [address] | | | PATHOLOGY | [address] | | | + + + + + | [facility] DEPARTMENT OF | [address] | [place] [address] | | | PATHOLOGY | [address] | | | + + + + + documented in this encounter Visit Diagnoses Not on filedocumented in this encounter"
--- OUTSIDE RECORDS SUMMARY | ~2019-10-16 | XMS | Encounter Summary ---
Demographics + + + | Address | [address] | | | [place] [address] | + + + | Home Phone [...] Team Providers + +------+ + | Care Chili Pepper Grinder Name | Role | Phone | [...] + + | 06/21/ | Office | [facility] | Delfina Molina, | LBP (Low Back Pain) | | 2008 | Visit | Pain Center at | ANP | (Primary Dx); Spinal | | | | [facility] | | Fusion Lumbar spine | | | | [address] | | ; Hx Arthroplasty | | | | Mailcode: CH15P | | of both Knees; | | | | Center for [facility] | | Fibromyalgia | | | | and Healing, | | syndrome 729.1; | | | | | | Abdominal Pain, | | | | Floor [place], [place] | | dumping syndrome Hx | | | | [address] | | of gastric bypass; | | | | [phone] | | Dumping Syndrome; | | | [...] Belinda Meehan is a [address] [facility] Comprehensive [...] removal on 05/15/2008 Dr. Betty Thomas MD [facility], after having problems with nu mbness, [...] a migraine sp ecialist this week in [place], Dr Lucio Nichols. Next area of chronic [...] has be completed, which I reviewed. [facility] Brief Pain Inventory: (ten= worst [...] 3. Mental Health care: Dr Ogden psychology [facility] last visit today . [...] 300 mg) by oral route once daily ihypgfifzc-hqefwintiaraw-pfyponjp (FIORICET) 50-325-40 mg Oral Tablet take 2 [...] 278 01/18 Paniculectomy Hx lumbar fusion 05/2008 L1-O2ttkrkc with bone spur removals Family History Problem [...] psychologist when ever sh e comes to [place] for medical care. She has a strong [...] [facility] Mail code CH 4P [facility] [address] [facility] [address] Ty Mendez - 12/2008 9:11 AM PSTCMA History: PMH/PSH/SH/FH review Patient had lumbar fusion in May 22. She also reports tooth abcess. She has script for an tibiotic tx waiting for her in [place]. 1. Has your pain changed from your [...]
--- OUTSIDE RECORDS SUMMARY | ~2019-10-16 | XMS | Encounter Summary ---
Demographics + + + | Address | [address] | | | [place] [address] | + + + | Home Phone [...] Providers + +------+ + | Care Textile Designs Sales Representative Name | Role | Phone [...] Fracture | | 2019 | | MEDICINE [address] [place] [address] | MD Petrona | | | | | [facility] | [address] [place] [address] | | | | | [place] [address] | [place] [address] | | | | | [phone] | [phone] | | | | | | | [...] | | | | | [place] [address] | | | | | | [phone] | | | | | | | | +--------+ + + + + | 12/20/ | Office | Audiology | Elisabet Munson MS | | 2019 | Visit | | [facility] [address] | | | | | [address] [place] | | | | | | [place] [address] | | | | | | [phone] | | | | | | | | +--------+ + + + + | 12/20/ | Office | Otolaryngology | Ulysses Genao MD | | | 2020 | Visit | | [address] [place] | | | | | | [address] [place], | | | | | | [place] [address] | | | | | | [phone] | | | | | | | | +--------+ + + + + documented as of this encounter Visit Diagnoses Not on filedocumented in this encounter"
--- OUTSIDE RECORDS SUMMARY | ~2019-10-16 | XMS | Encounter Summary ---
Demographics + + + | Address | [address] | | | [place] [address] | + + + | Home Phone [...] Providers + +------+ + | Care Proof Operator Name | Role | Phone | + +------+ + | Petrona Thapa | PCP | | | MD | | | + +------+ + Encounter Details +--------+ + + + + | Date | Type | Department | Care Team | Description | +--------+ + + + + | 09/15/ | Hospital | [facility] | Alanis, | Pain in right lower | | 2019 | Encounter | [facility] | MD Petrona | leg | | | | [address] [place] | [address] [facility] | | | | | [place] | [place] [address] | | | | | [address] | [phone] | | | | | [phone] | | | +--------+ + + + [...] | | | | | [place] [address] | | | | | | [phone] | | | | | | | | +--------+ + + + + | 12/20/ | Office | Audiology | Elisabet Munson MS | | | 2019 | Visit | | [facility] [address] | | | | | | [address] [place] [place] | | | | | | [place] [address] | | | | | | [phone] | | | | | | | | +--------+ + + + + | 12/20/ | Office | Otolaryngology | Ulysses Genao MD | | | 2019 | Visit | | [address] [place] | | | | | | [address] [place], | | | | | | [place] [address] | | | | | | [phone] | | | | | | | [...]
--- OUTSIDE RECORDS SUMMARY | ~2019-10-16 | XMS | Encounter Summary ---
Demographics + + + | Address | [address] | | | [place] [address] | + + + | Home Phone [...] Providers + +------+ + | Care Dog Food Dough Mixer Name | Role | Phone | [...] + | 11/22/ | Refill | [facility] | Alanis, | Medication Refill | | 2018 | | MEDICINE [address] [place] [address] | MD Petrona | | | | | [facility] | [address] [place] [address] | | | | | [place] [address] | [place] [address] | | | | | [phone] | [phone] | | | | | | | [...] | | | | | [place] [address] | | | | | | [phone] | | | | | | | | +--------+ + + + + | 12/20/ | Office | Audiology | DarioElisabet ramires MS | | | 2019 | Visit | | [facility] [address] | | | | | [address] [place] | | | | | | [place], [place] [address] | | | | | | [phone] | | | | | | | | +--------+ + + + + | 12/20/ | Office | Otolaryngology | Ulysses Genao MD | | | 2019 | Visit | | [address] [place] | | | | | | [address] [place], | | | | | | [place] [address] | | | | | | [phone] | | | | | | | | +--------+ + + + + documented as of this encounter Visit Diagnoses Not on filedocumented in this encounter"
--- OUTSIDE RECORDS SUMMARY | ~2019-10-16 | XMS | Encounter Summary ---
Demographics + + + | Address | [address] | | | [place] [address] | + + + | Home Phone [...] Team Providers + +------+ + | Care Reactor Service Operator Name | Role | Phone | [...] [id number] | | | | | | [place], [place] | | | | | | [address] | | | | | | [phone] | | | +--------+ + + + [...]
--- OUTSIDE RECORDS SUMMARY | ~2019-10-16 | XMS | Encounter Summary ---
Demographics + + + | Address | [address] | | | [place] [address] | + + + | Home Phone [...] as of this encounter Progress Notes Interface, Consulting Software Engineer In - 01/11/2005 6:26 PM PDT Referred [...] blindness. History was obtained from the patient, [facility] medical records, and two magnetic resonance [...] any point. She has been seen her public health professor in [facility], Dr. Lc Renteria, who by [...] and fibromyalgia. SOCIAL HISTORY: Patient lives in [facility] with her eldest son. She [...] acute distress. She does have a right-sided Maltese crutch which she uses to enter and [...] biceps, triceps, wrist extensors, finger extensors, hand fire adjuster, hip flexors and extensors, and ankle, plantar, and dorsiflexors as well as knee flexors and extensors. There is no pronator drift. Reflexes are 2+ and symmetrical at the biceps, triceps, brachioradialis, patellar, and ankle regions. Toes are downgoing to plantar stimulation. Light touch and tuning fork is within normal limits in the lower extremities. Xdiiew-pa-psea and fine finger movements are within normal [...] Amin M.D., Neurophthalmology cc: CRYSTAL CARTER M.D. [facility] [address] [facility] [id number] signed by Interface, Consulting Software Engineer In at 2004 6:26 PM PDTdocumented in this encounter Plan of Treatment Not on filedocumented as of this encounter Visit Diagnoses Not on filedocumented in this encounter"
--- OUTSIDE RECORDS SUMMARY | ~2019-10-16 | XMS | Encounter Summary ---
Demographics + + + | Address | [address] | | | [place] [address] | + + + | Home Phone [...] Team Providers + +------+ + | Care Jail Officer Name | Role | Phone | [...] | | [facility] | [place], [place] | | | | | and [place], | [address] | | | | | [facility] , | [phone] | | | | | Floor [place], [place] | | | | | | [address] | | | | | | [phone] | | | +--------+ + + + [...]
--- OUTSIDE RECORDS SUMMARY | ~2019-10-16 | XMS | Encounter Summary ---
Demographics + + + | Address | [address] | | | [place] [address] | + + + | Home Phone [...] Providers + +------+ + | Care Home Day Care Provider Name | Role | [...] 2018 | | GASTROENTEROLOGY | [address] [facility] | | | | | [address] [facility] | [place], [place] | | | | | [address] [place], [place] | [address] | | | | | [address] | [phone] | | | | | [phone] | | | +--------+ + + + [...] | | | | | [place] [address] | | | | | | [phone] | | | | | | | | +--------+ + + + + | 12/20/ | Office | Audiology | Elisabet Munson MS | | 2019 | Visit | | [facility] [address] | | | | | [address] [place] | | | | | | [place] [address] | | | | | | [phone] | | | | | | | | +--------+ + + + + | 12/20/ | Office | Otolaryngology | Ulysses Genao MD | | | 2020 | Visit | | [address] [facility] | | | | | | [address] [place], | | | | | | [place] [address] | | | | | | [phone] | | | | | | | | +--------+ + + + + documented as of this encounter Visit Diagnoses Not on filedocumented in this encounter"
--- OUTSIDE RECORDS SUMMARY | ~2019-10-16 | XMS | Encounter Summary ---
Demographics + + + | Address | [address] | | | [place] [address] | + + + | Home Phone [...] Providers + +------+ + | Care Necktie Maker Name | Role | Phone | + +------+ + | Pedrito Gutierrez MD | PCP | | + +------+ + Encounter Details +--------+ + + + + | Date | Type | Department | Care Team | Description | +--------+ + + + + | 11/24/ | Respiratory | | Other, Faculty | | | 2003 | | | [phone] | | | | Therapy[facility] | | [...]
--- OUTSIDE RECORDS SUMMARY | ~2019-10-16 | XMS | Encounter Summary ---
Demographics + + + | Address | [address] | | | [place] [address] | + + + | Home Phone [...] Pavilion | | | | | | [place], [place] | | | | | | [address] | | | | | | [phone] | | | +--------+---------+ + + + [...] take place on the hill at the [facility]: Surgeries scheduled in the [facility]): registration is located on the 4th floor of [facility] (Day Surgery). Surgeries scheduled in the [facility]: registration is located on the 9th floor. Surgeries scheduled in [facility]: registration is located on the 6th floor. Surgeries scheduled in the [facility]: registration is located i n the [facility] on the first floor. For surgeries scheduled to take place at the [facility]: registration is l [...] If you use specialized [facility] equipment [facility], please check with your provider before [...]
--- OUTSIDE RECORDS SUMMARY | ~2019-10-16 | XMS | Encounter Summary ---
Demographics + + + | Address | [address] | | | [place] [address] | + + + | Home Phone [...] Providers + +------+ + | Care Outsole Skiver Name | Role | Phone | + [...] [address] | | | | | | [place], [place] | | | | | | [address] | | | | | | [phone] | | | +--------+ + + + [...]
--- OUTSIDE RECORDS SUMMARY | ~2019-10-16 | XMS | Encounter Summary ---
Demographics + + + | Address | [address] | | | [place] [address] | + + + | Home Phone [...] Team Providers + +------+ + | Care Allergy Specialist Name | Role | Phone | [...] as of this encounter Progress Notes Byron, Loss Prevention Guard In - 01/12/2005 6:46 AM PDTClinic Date: [...] months. Chris Padgett M.D. CD / HS [id number] / [id number] / [id number] / Tdocumented in this encounter Plan of Treatment Not on filedocumented as of this encounter Visit Diagnoses Not on filedocumented in this encounter"
--- OUTSIDE RECORDS SUMMARY | ~2019-10-16 | XMS | Encounter Summary ---
[...] Providers + +------+ + | Care Putty Glazer Name | Role | Phone | + [...] | Transcriptions | + + | Interface, Research Leader In - 08/06/2005 2:06 AM PST | | [id number] | | [id number] GEOVANNI Barnes | | | | Date: 07/25/2005 | | | | Attending Surgeon: Chris Padgett M.D. | | | | Manager Acute(s): Bandar Langley M.D. | | | | [...] | | DT / HS | | [id number] / [id number] / [id number] / [id number] | | | | | | | | | | | | Electronically signed by Chris Padgett 08-05-2005 12:36:41 PM | + + documented in this encounter Visit Diagnoses Not on filedocumented in this encounter"
--- OUTSIDE RECORDS SUMMARY | ~2019-10-16 | XMS | Encounter Summary ---
Demographics + + + | Address | [address] | | | [place] [address] | + + + | Home Phone [...] Providers + +------+ + | Care Physical Medicine Specialist Name | Role | Phone | [...] + | 06/16/ | Clinical | [facility] | Alanis, | B12 deficiency | | 2020 | Support | MEDICINE [address] [place] [address] | MD Petrona | (Primary Dx) | | | | [facility] | [address] [place] [address] | | | | | [place] [address] | [place] [address] | | | | | [phone] | [phone] | | | | | | | [...] of this encounter Progress Notes Shanta Whaley Material Flow Engineer - 06/16/2019 10:30 AM PSTFormatting of this note calderon ht be different from the original. Administrations This Visit cyanocobalamin (VITAMIN B-12) injection 1,000 mcg Admin Date 06/16/2019 Action Given Dose 1000 mcg Route Intramuscular Administered By Shanta Whaley Material Flow Engineer Patient tolerated injection well, advised to schedule [...] | | | | | [place] [address] | | | | | | [phone] | | | | | | | | +--------+ + + + + | 12/20/ | Office | Audiology | Elisabet Munson MS | | | 2019 | Visit | | [facility] [address] | | | | [address] [place] | | | | | | [place], [place] [address] | | | | | | [phone] | | | | | | | | +--------+ + + + + | 12/20/ | Office | Otolaryngology | Ulysses Genao MD | | | 2019 | Visit | | [address] [place] | | | | | | [address] [place], | | | | | | [place] [address] | | | | | | [phone] | | | | | | | [...]
--- OUTSIDE RECORDS SUMMARY | ~2019-10-16 | XMS | Encounter Summary ---
Demographics + + + | Address | [address] | | | [place] [address] | + + + | Home Phone [...] Providers + +------+ + | Care Solutions Architect Name | Role | Phone [...] Office | [facility] Comprehensive | Petra Delfina, | Encounter for | | 2006 | Visit | Pain Center at | ANP | Long-Term (Current) | | | | 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 DELFINA MOLINA [facility] Mail code CH 4P [facility] and [address] [address] Tasha Can - 03/31/2007 9:15 [...]
--- OUTSIDE RECORDS SUMMARY | ~2019-10-16 | XMS | Encounter Summary ---
Demographics + + + | Address | [address] | | | [place] [address] | + + + | Home Phone [...] Team Providers + +------+ + | Care Tobacco Acreage Measurer Name | Role | Phone | [...] + | 10/09/ | Refill | [facility] | Alanis, | Medication Refill | | 2017 | | MEDICINE [address] [place] [address] | MD Pertona | | | | | [facility] | [address] [place] [address] | | | | | [place] [address] | [place] [address] | | | | | [phone] | [phone] | | | | | | | [...] | | | | | [place] [address] | | | | | | [phone] | | | | | | | | +--------+ + + + + | 12/20/ | Office | Audiology | DarioElisabet ramires MS | | | 2019 | Visit | | [facility] [address] | | | | | [address] [place] | | | | | | [place], [place] [address] | | | | | | [phone] | | | | | | | | +--------+ + + + + | 12/20/ | Office | Otolaryngology | Ulysses Genao MD | | | 2019 | Visit | | [address] [place] | | | | | | [address] [place], | | | | | | [place] [address] | | | | | | [phone] | | | | | | | | +--------+ + + + + documented as of this encounter Visit Diagnoses Not on filedocumented in this encounter"
--- OUTSIDE RECORDS SUMMARY | ~2019-10-16 | XMS | Encounter Summary ---
Demographics + + + | Address | [address] | | | [place] [address] | + + + | Home Phone [...] + +------+ + | Care Press Tender Smoke Signal Name | Role | Phone | + [...] as of this encounter Progress Notes Interface, Hogshead Weigher In - 08/22/2005 2:06 AM PST [id number] GEOVANNI Barnes Clinic Date: 07/31/2005 Clinic: Surgery [...] exploratory laparotomy. Plan: Emergency supply approved by [facility] in [place]. Quantity 35 was requested and will be filled. I will send a prescription for 40 additional oxycodone 5 mg. The patient will be seen in clinic in one week. Melisa Thorne / SHARIF [id number] / [id number] / [id number] / [id number] Electronically signed by Kenisha Melton 08-21-2005 07:00:10 PM documented corrie cortes this encounter Plan of Treatment Not on filedocumented as of this encounter Visit Diagnoses Not on filedocumented in this encounter"
--- OUTSIDE RECORDS SUMMARY | ~2019-10-16 | XMS | Encounter Summary ---
Demographics + + + | Address | [address] | | | [place] [address] | + + + | Home Phone [...] + +------+ + | Care Television News Reporter Name | Role | Phone | [...] | CONSULT TO | Rd | [address] | | | | | NEUROLOGY | [place], [place] | for Health | | | | | | [address] | and Healing, | | | | | | Phone: | Building [address], | | | | | | [phone] | [facility] Floor | | | | | | | [place], [place] | | | | | | | [address] | | | | | | | Phone: | | | | | | | [phone] | | | | | | | Fax: | | | | | | | [phone] | +--------+--------+ + + + + Reason [...] | | | [facility] | [place], [place] | Weak; | | | | [address] | [address] | Migraine Headache | | | | [address] | [phone] | | | | | [facility] | | | | | | Physician's | | | | | | Pavilion [place], | | | | | | [place] [address] | | | | | | [phone] | | | +--------+---------+ + + + [...] oral route once daily, Disp: , Rfl: qhnfrfhvof-vyovyvacgvups-fnsumqgu (FIORICET) 50-325-40 mg Oral Tablet, take 2 [...] LE edema Results for BELINDA MEEHAN Molly (ID#[id number]) as of 03/01/2008 9:22:28 PM Ref. Range [...] K/cu mm 220 Results for BELINDA MEEHAN (ID#[id number]) as of 03/01/2008 9:22:28 PM Ref. Range [...] continue to discuss with her options at [facility] with, hopefully, coordin ation of services. [...] + | [facility] | [address] [address] | [place] [address] | | | PATHOLOGY | [address] | | | + + + + + | [place] DEPARTMENT OF | [address] | [place] [address] | | | PATHOLOGY | [address] [...] Performed At | + + + | [id number] Estimated GFR > 60 mL/min/1.73 sq m if non- | [facility] | | [place] [id number] Estimated GFR > 60 mL/min/1.73 sq m [...] | [facility] | [address] [facility] | [place] [address] | | | PATHOLOGY | [address] | | | + + + + + | [facility] | [address] [facility] | [place] [address] | | | PATHOLOGY | [address] [...] change effective | | | 04/05/07 [facility] ([facility]) | | | [facility] [address] [place] [facility] [facility] | | | [place] [address] | | + + + + + + + + | Performing | Address | City/State/Zipcode | Phone Number | | Organization | | | | + + + + + | [facility] | [address] | [place] [address] | | | LABORATORY | | | [...] change effective | | | 04/05/07 [facility] ([facility]) | | | [facility] [place] [address] [place] [facility] [facility] | | | [place] [address] | | + + + + + + + + | Performing | Address | City/State/Zipcode | Phone Number | | Organization | | | | + + + + + | [facility] | [address] | [place] [address] | | | LABORATORY | | | [...]
--- OUTSIDE RECORDS SUMMARY | ~2019-10-16 | XMS | Encounter Summary ---
Demographics + + + | Address | [address] | | | [place] [address] | + + + | Home Phone [...] Providers + +------+ + | Care Environmental Marketer Name | Role | Phone | + [...] | Ave Mailcode: CH4S | [facility] | | | | | [facility] | [place], [place] | | | | | and Healing, | [address] | | | | | [facility] | [phone] | | | | | Floor [place], [place] | | | | | | [address] | | | | | | [phone] | | | +--------+ + + + [...]
--- OUTSIDE RECORDS SUMMARY | ~2019-10-16 | XMS | Encounter Summary ---
Demographics + + + | Address | [address] | | | [place] [address] | + + + | Home Phone [...] Providers + +------+ + | Care Hat Renovator Name | Role | Phone | [...] as of this encounter Progress Notes Interface, Superintendent [employer] In - 03/26/2006 1:05 AM [facility] [place] [address] [place], [place] [address] or February 22, 2001 Pedrito Gutierrez M.D. [facility] [address] [place] [address] RE: BELINDA MEEHAN MR #: [id number] Dear [...] regarding this patient. Sincerely, Issac Meeks M.D. mental health program specialist Division of Endocrinology, Diabetes, and Clinical Loom Changer, Metabolic Disorders Clinic PBD / HS [id number] / [id number] / [id number] / [id number] signed by Interface, Superintendent [employer] In at 03/26/2006 1:05 AM PDTdocume nted in this encounter Plan of Treatment Not on filedocumented as of this encounter Visit Diagnoses Not on filedocumented in this encounter
--- OUTSIDE RECORDS SUMMARY | ~2019-10-16 | XMS | Encounter Summary ---
Demographics + + + | Address | [address] | | | [place] [address] | + + + | Home Phone [...] Providers + +------+ + | Care Cover Machine Operator Name | Role | Phone [...] + + | 03/04/ | Telephone | [facility] | Alanis, | Referral; Medication | | 2016 | | [address] | MD Petrona | Refill | | | | [facility] | [address] [place] [address] | | | | | [place] [address] | [place] [address] | | | | | [phone] | [phone] | | | | | | | [...] | | | | | [place] [address] | | | | | | [phone] | | | | | | | | +--------+ + + + + | 12/20/ | Office | Audiology | Elisabet Munson MS | | | 2019 | Visit | | [facility] [address] | | | | [address] [place] | | | | | | [place] [address] | | | | | | [phone] | | | | | | | | +--------+ + + + + | 12/20/ | Office | Otolaryngology | Ulysses Genao MD | | | 2019 | Visit | | [address] [place] | | | | | | [address] [place], | | | | | | [place] [address] | | | | | | [phone] | | | | | | | | +--------+ + + + + documented as of this encounter Visit Diagnoses Not on filedocumented in this encounter"
--- OUTSIDE RECORDS SUMMARY | ~2019-10-16 | XMS | Encounter Summary ---
Demographics + + + | Address | [address] | | | [place] [address] | + + + | Home Phone [...] + +------+ + | Care Assistant Professor Of Criminal Justice Name | Role | Phone | + [...] as of this encounter Progress Notes Interface, Electronics Mechanic In - 01/13/2005 9:03 AM PDT [id number] GEOVANNI Barnes Clinic Date: 01/02/2005 Clinic: Endocrinology [...] months. Beto Meeks M.D. PD / HS [id number] / [id number] / [id number] / [id number] cc: Chris Padgett M.D. documented i n this encounter Plan of Treatment Not on filedocumented as of this encounter Visit Diagnoses Not on filedocumented in this encounter"
--- OUTSIDE RECORDS SUMMARY | ~2019-10-16 | XMS | Encounter Summary ---
Demographics + + + | Address | [address] | | | [place] [address] | + + + | Home Phone [...] +------+ + | Care Assistant Professor Of Biochemistry Name | Role | [...] + + | 08/04/ | Refill | [facility] | Alanis, | Medication Refill | | 2017 | | MEDICINE [address] [place] [address] | MD Petrona | | | | | [facility] | [address] [place] [address] | | | | | [place] [address] | [place] [address] | | | | | [phone] | [phone] | | | | | | | [...] | | | | | [place] [address] | | | | | | [phone] | | | | | | | | +--------+ + + + + | 12/20/ | Office | Audiology | DarioElisabet ramires MS | | | 2019 | Visit | | [facility] [address] | | | | [address] [place] | | | | | | [place], [place] [address] | | | | | | [phone] | | | | | | | | +--------+ + + + + | 12/20/ | Office | Otolaryngology | Ulysses Genao MD | | | 2019 | Visit | | [address] | | | | | | [address] [place], | | | | | | [place] [address] | | | | | | [phone] | | | | | | | | +--------+ + + + + documented as of this encounter Visit Diagnoses Not on filedocumented in this encounter"
--- OUTSIDE RECORDS SUMMARY | ~2019-10-16 | XMS | Encounter Summary ---
Demographics + + + | Address | [address] | | | [place] [address] | + + + | Home Phone [...] Team Providers + +------+ + | Care Hosiery Bagger Name | Role | Phone | + [...] Procedures | [address] | [place] | | | | | CONSULT TO | [facility] | [address] | | | | | GI PROCEDURE | Rd | floor | | | | | UNIT: SM | [place], [place] | [place], [place] | | | | | BOWEL | [address] | [address] | | | | | CAPSULE | Phone: | Phone: | | | | | ENDOSCOPY | [phone] | [phone] | | | | | | | Fax: | | | | | | | [phone] | +--------+--------+ + + + + Consultation [...] | | | | | Procedures | [facility] | [place], [place] | | | | | CONSULT TO | Rd | [address] | | | | | PAIN CENTER | [place], [place] | | | | | | | [address] | | | | | | | Phone: | | | | | | | [phone] | | +--------+--------+ + + + + Encounter Details +--------+---------+ + + + | Date | Type | Department | Care Team | Description | +--------+---------+ + + + | 04/07/ | Office | [facility] Division of | Carlos Arreola, | Iron Deficiency; | | 2005 | Visit | Gastroenterology/Hep | [address] | Chronic Abdominal | | | | atology [address] | [facility] | Pain | | | | [address] | [place] [address] | | | | | Mailcode: PV310 | [phone] | | | | | [facility] | | | | | | [address] | | | | | | [place], [place] | | | | | | [address] | | | | | | [phone] | | | +--------+---------+ + + + [...] reviewed and normal (past ed below). [facility] labs received and reviewed: neg O&P UPPER [...] HEPATIS NODES. Transcribed By: Armaan Rivera : [id number] : 1224 Approved By: CT ABDOMEN AND [...] HEPATIS NODES. Transcribed By: Armaan Mata : [id number] : 1224 Approved By: Carlos Benton - 3:59 PM PDTPt seen previously seen by ok for chronic pain and PK, returns to [...]
--- OUTSIDE RECORDS SUMMARY | ~2019-10-16 | XMS | Encounter Summary ---
Demographics + + + | Address | [address] | | | [place] [address] | + + + | Home Phone [...] Providers + +------+ + | Care Grain Manager Name | Role | Phone | [...] + + | 06/30/ | Telephone | [facility] | Alanis, | Other | | 2019 | | MEDICINE [address] [place] [address] | MD Petrona | | | | | [facility] | [address] [place] [address] | | | | | [place] [address] | [place] [address] | | | | | [phone] | [phone] | | | | | | | [...] | | | | | [place] [address] | | | | | | [phone] | | | | | | | | +--------+ + + + + | 12/20/ | Office | Audiology | Elisabet Munson MS | | 2019 | Visit | | [facility] [address] | | | | | | [address] [place] | | | | | | [place] [address] | | | | | | [phone] | | | | | | | | +--------+ + + + + | 12/20/ | Office | Otolaryngology | Ulysses Genao MD | | | 2019 | Visit | | [address] | | | | | | [address] [place], | | | | | | [place] [address] | | | | | | [phone] | | | | | | | [...]
--- OUTSIDE RECORDS SUMMARY | ~2019-10-16 | XMS | Encounter Summary ---
Demographics + + + | Address | [address] | | | [place] [address] | + + + | Home Phone [...] Team Providers + +------+ + | Care Turnstile Attendant Name | Role | Phone | [...] | ANP | | | | | [facility] | | | | | | [address] | | | | | | Mailcode: CH15P | | | | | | [place] [facility] | | | | | | and Healing, | | | | | | Building ,15th | | | | | | Floor [place], [place] | | | | | | [address] | | | | | | [phone] | | | +--------+ + + + [...]
--- OUTSIDE RECORDS SUMMARY | ~2019-10-16 | XMS | Encounter Summary ---
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 female [facility] Comprehensive Pain Center Return Visit Chief [...] facia pain working with exercises and her twister in. Belinda Meehan is here today for a [...] until surgery pending 02/13 12/19. DELFINA MOLINA [facility] Pain Center Mail code CH 4P [place] [facility] and [address] [address] Ailyn Foster - 01/12/20 07 [...]
--- OUTSIDE RECORDS SUMMARY | ~2019-10-16 | XMS | Encounter Summary ---
Demographics + + + | Address | [address] | | | [place] [address] | + + + | Home Phone [...] Team Providers + +------+ + | Care Bariatric Nurse Name | Role | Phone | [...] + + | 07/27/ | Telephone | [facility] | Alanis, | Other | | 2020 | | MEDICINE [address] [place] [address] | MD Petrona | | | | | [facility] | [address] [place] [address] | | | | | [place] [address] | [place] [address] | | | | | [phone] | [phone] | | | | | | | [...] | | | | | [place] [address] | | | | | | [phone] | | | | | | | | +--------+ + + + + | 12/20/ | Office | Audiology | Elisabet Munson MS | | 2019 | Visit | | [facility] [address] | | | | | | [address] [place] | | | | | | [place] [address] | | | | | | [phone] | | | | | | | | +--------+ + + + + | 12/20/ | Office | Otolaryngology | Ulysses Genao MD | | | 2020 | Visit | | [address] [facility] | | | | | | [address] [place], | | | | | | [place] [address] | | | | | | [phone] | | | | | | | | +--------+ + + + + documented as of this encounter Visit Diagnoses Not on filedocumented in this encounter"
--- OUTSIDE RECORDS SUMMARY | ~2019-10-16 | XMS | Encounter Summary ---
Demographics + + + | Address | [address] | | | [place] [address] | + + + | Home Phone [...] Providers + +------+ + | Care Engine Room Helper Name | Role | Phone | + +------+ + | Petrona Thapa | PCP | | | MD | | | + +------+ + Encounter Details +--------+ + + + + | Date | Type | Department | Care Team | Description | +--------+ + + + + | 02/23/ | Hospital | [facility] | [place] | Right shoulder pain, | | 2018 | Encounter | [facility] | MD [address] | unspecified | | | | [address] [place] | [address] [place] | chronicity | | | | [place] | [place] [address] | | | | | [address] | [phone] | | | | | [phone] | | | +--------+ + + + [...] | | | | | [place] [address] | | | | | | [phone] | | | | | | | | +--------+ + + + + | 12/20/ | Office | Audiology | Elisabet Munson MS | | | 2019 | Visit | | [facility] | | | | | | [place] | | | | | | [place] [address] | | | | | | [phone] | | | | | | | | +--------+ + + + + | 12/20/ | Office | Otolaryngology | Genao, Ulysses E, MD | | | 2020 | Visit | | [address] | | | | | | [address] [place], | | | | | | [place] [address] | | | | | | [phone] | | | | | | | [...]
--- OUTSIDE RECORDS SUMMARY | ~2019-10-16 | XMS | Encounter Summary ---
Demographics + + + | Address | [address] | | | [place] [address] | + + + | Home Phone [...] Providers + +------+ + | Care Java Web Application Developer Name | Role | Phone [...] + | 06/03/ | Telephone | [facility] | Alanis, | Referral | | 2017 | | MEDICINE [address] [place] [address] | MD Petrona | | | | | [facility] | [address] [place] [address] | | | | | [place] [address] | [place] [address] | | | | | [phone] | [phone] | | | | | | | [...] | | | | | [place] [address] | | | | | | [phone] | | | | | | | | +--------+ + + + + | 12/20/ | Office | Audiology | Elisabet Munson MS | | 2019 | Visit | | [facility] [address] | | | | | | [address] | | | | | | [place] [address] | | | | | | [phone] | | | | | | | | +--------+ + + + + | 12/20/ | Office | Otolaryngology | Ulysses Genao MD | | | 2020 | Visit | | [address] | | | | | | [address] [place], | | | | | | [place] [address] | | | | | | [phone] | | | | | | | | +--------+ + + + + documented as of this encounter Visit Diagnoses Not on filedocumented in this encounter"
--- OUTSIDE RECORDS SUMMARY | ~2019-10-16 | XMS | Encounter Summary ---
Demographics + + + | Address | [address] | | | [place] [address] | + + + | Home Phone [...] Providers + +------+ + | Care Eyeglass Lens Cutter Name | Role | Phone | [...] as of this encounter Progress Notes Interface, Admitting Coordinator In - 08/14/2005 2:05 AM PST [id number] [facility] Date: 08/06/2005 Clinic: Rheumatology [...] of antiinflammatory diet that one of the physician's aide in [place] has written a book about, and I have had a patient do extremely well with it in terms of her IBS and fibromyalgia pain and fatigue. Belinda is interested in this and will pursue it. 3. I have given her a lot of articles that she can pass onto her physicians in [place]. She would like somebody there to learn [...] 4 months. Caitlin Rivera M.S., F.N.P. / [id number] / [id number] / [id number] / [id number] cc: Pedrito Gutierrez M.D. [address] [place] [address] Electronically signed by Caitlin Rivera 08-13-2005 03:37:47 PM documented i n this encounter Plan of Treatment Not on filedocumented as of this encounter Visit Diagnoses Not on filedocumented in this encounter"
--- OUTSIDE RECORDS SUMMARY | ~2019-10-16 | XMS | Encounter Summary ---
[...] Team Providers + +------+ + | Care Comfort Advisor Name | Role | Phone | [...] | | [facility] [address] | PHARMACOVIGILANCE SPECIALIST [address] | | | | | [place] | , [address] | | | | | Mailcode: Center | [place], [place] | | | | | [facility] and | [address] | | | | | Healing, Building 2 | [phone] | | | | | [place], [place] | | | | | | [address] | | | | | | [phone] | | | +--------+ + + + [...]
--- OUTSIDE RECORDS SUMMARY | ~2019-10-16 | XMS | Encounter Summary ---
Demographics + + + | Address | [address] | | | [place] [address] | + + + | Home Phone [...] Team Providers + +------+ + | Care Contracting Support Specialist Name | Role | Phone [...]
--- OUTSIDE RECORDS SUMMARY | ~2019-10-16 | XMS | Encounter Summary ---
Demographics + + + | Address | [address] | | | [place] [address] | + + + | Home Phone [...] Team Providers + +------+ + | Care Casino Gaming Inspector Name | Role | Phone | [...] + + | 08/28/ | Office | [facility] Comprehensive | Delfina Lambert, | Neck Pain; Radicular | | 2008 | Visit | Pain Center at | ANP | Pain in Left Arm; | | | | [facility] | | Fibromyalgia; | | | | [address] | | Chronic Bilateral | | | | Mailcode: CH15P | | Shoulder Pain; | | | | [facility] | | Coccydynia; LBP (Low | | | | and Healing, | | Back Pain); | | | | Building | | Adjustment Disorder | | | | Floor [place], [place] | | with Anxiety; Major | | | | [address] | | Depressive Disorder, | | | | [phone] | | Recurrent Episode, | | | [...] Belinda Meehan is a 48 y.o. female [facility] Pain Center Return Visit Chief [...] drawing has be completed, which I reviewed. 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 documented in this [facility] Plan of Treatment Not on filedocumented [...]
--- OUTSIDE RECORDS SUMMARY | ~2019-10-16 | XMS | Encounter Summary ---
Demographics + + + | Address | [address] | | | [place] [address] | + + + | Home Phone [...] Team Providers + +------+ + | Care Homeland Security Program Specialist Name | Role | Phone | [...] | | | [facility] | [place], [place] | | | | | [address] | [address] | | | | | [address] | [phone] | | | | | Physician's | | | | | | Pavilion, 1st floor | | | | | | [place], [place] | | | | | | [address] | | | | | | [phone] | | | +--------+ + + + [...]
--- OUTSIDE RECORDS SUMMARY | ~2019-10-16 | XMS | Encounter Summary ---
Demographics + + + | Address | [address] | | | [place] [address] | + + + | Home Phone [...] Providers + +------+ + | Care Technical Publications Manager Name | Role | Phone | [...] as of this encounter Progress Notes Interface, Press Operator In - 01/12/2005 8:09 AM PDT [id number] [facility] Date: 02/27/2004 Clinic: [facility] Subjective: The patient underwent gastric bypass surgery in November 2003 under the care of Dr. Chris Padgett here at [facility]. She has been doing well after the [...] been scheduled through the Sleep Clinic in [place]. Medications 1. Ranitidine 150 mg p.o. b.i.d. [...] months. Issac Meeks M.D. MONIQUE / SHARIF [id number] / [id number] / [id number] / cc: Joanna Arshad M.D. [address] [facility] [place] [address] documented i n this encounter Plan of Treatment Not on filedocumented as of this encounter Visit Diagnoses Not on filedocumented in this encounter"
--- OUTSIDE RECORDS SUMMARY | ~2019-10-16 | XMS | Encounter Summary ---
Demographics + + + | Address | [address] | | | [place] [address] | + + + | Home Phone [...] Team Providers + +------+ + | Care Spanish Interpreter/Translator Name | Role | Phone | + [...] + + | 01/31/ | Telephone | [facility] | Alanis, | Foot Pain | | 2019 | | MEDICINE [address] [place] [address] | MD Petrona | | | | | [facility] | [address] [place] [address] | | | | | [place] [address] | [place] [address] | | | | | [phone] | [phone] | | | | | | | [...] | | | | | [place] [address] | | | | | | [phone] | | | | | | | | +--------+ + + + + | 12/20/ | Office | Audiology | Elisabet Munson MS | | 2019 | Visit | | [facility] [address] | | | | | | [address] [place] | | | | | | [place] [address] | | | | | | [phone] | | | | | | | | +--------+ + + + + | 12/20/ | Office | Otolaryngology | Ulysses Genao MD | | | 2020 | Visit | | [address] | | | | | | [address] [place], | | | | | | [place] [address] | | | | | | [phone] | | | | | | | | +--------+ + + + + documented as of this encounter Visit Diagnoses Not on filedocumented in this encounter"
--- OUTSIDE RECORDS SUMMARY | ~2019-10-16 | XMS | Encounter Summary ---
Demographics + + + | Address | [address] | | | [place] [address] | + + + | Home Phone [...] Team Providers + +------+ + | Care Batch Heat Treat Operator Name | Role | Phone | [...] + | 06/30/ | Refill | [facility] | Alanis, | Medication Refill | | 2017 | | MEDICINE [address] [place] [address] | MD Petrona | | | | | [facility] | [address] [place] [address] | | | | | [place] [address] | [place] [address] | | | | | [phone] | [phone] | | | | | | | [...] | | | | | [place] [address] | | | | | | [phone] | | | | | | | | +--------+ + + + + | 12/20/ | Office | Audiology | DarioElisabet ramires MS | | | 2019 | Visit | | [facility] [address] | | | | | [address] [place] | | | | | | [place], [place] [address] | | | | | | [phone] | | | | | | | | +--------+ + + + + | 12/20/ | Office | Otolaryngology | Ulysses Genao MD | | | 2019 | Visit | | [address] | | | | | | [address] [place], | | | | | | [place] [address] | | | | | | [phone] | | | | | | | | +--------+ + + + + documented as of this encounter Visit Diagnoses Not on filedocumented in this encounter"
--- OUTSIDE RECORDS SUMMARY | ~2019-10-16 | XMS | Encounter Summary ---
Demographics + + + | Address | [address] | | | [place] [address] | + + + | Home Phone [...] Providers + +------+ + | Care Legal Summer Intern Name | Role | Phone | [...] + + | 03/19/ | Telephone | [facility] Division of | Carlos Arreola, | Erroneous Encounter | | 2005 | | Gastroenterology/Hep | [address] | - Disregard (ERROR) | | | | atology [address] | [address] | | | | | [address] | [place] [address] | | | | | Mailcode: PV310 | [phone] | | | | | [facility] | | | | | | [address] | | | | | | [place], [place] | | | | | | [address] | | | | | | [phone] | | | +--------+ + + + [...]
--- OUTSIDE RECORDS SUMMARY | ~2019-10-16 | XMS | Encounter Summary ---
Demographics + + + | Address | [address] | | | [place] [address] | + + + | Home Phone [...] Team Providers + +------+ + | Care Loin Trimmer Name | Role | Phone | [...]
--- OUTSIDE RECORDS SUMMARY | ~2019-10-16 | XMS | Encounter Summary ---
Demographics + + + | Address | [address] | | | [place] [address] | + + + | Home Phone [...] Providers + +------+ + | Care Rug Sample Beveler Name | Role | Phone | [...] as of this encounter Progress Notes Interface, Etl Tester In - 01/12/2005 6:32 AM PDTClinic Date: [...] improves, and the leg discomfort is actually marketing development representative of restless legs. I have given [...] 4 months. Caitlin Rivera M.S., F.N.P. / [id number] / [id number] / [id number] / [id number] cc: Pedrito Gutierrez M.D. [address] [place], [place] [address]Hivikqieqgxwly signed by Interface, Etl Tester In at 01/12/2005 6:3 2 AM PDTdocumented in this encounter Plan of Treatment Not on filedocumented as of this encounter Visit Diagnoses Not on filedocumented in this encounter"
--- OUTSIDE RECORDS SUMMARY | ~2019-10-16 | XMS | Encounter Summary ---
Demographics + + + | Address | [address] | | | [place] [address] | + + + | Home Phone [...] as of this encounter Progress Notes Interface, Measurer In - 11/05/2005 2:06 AM PDT [id number] GEOVANIN [facility] [id number] Clinic Date: 10/20/2005 Clinic: Bariatric Surgery Clinic Subjective: Ms. Meehan returns today for continued evaluation of her abdominal pain. She has had a gastric bypass followed by a panniculectomy approximately 1 year ago. She has had diffuse sharp and crampy abdominal pain which lasts up to 45 minutes. She says "it takes her breath away." She went to the emergency room at [facility] last night and got some IV pain [...] . Wali Valentine M.D. CONNOR / SHARIF [id number] / [id number] / [id number] / [id number] Electronically signed by Luther Valentine 11-04-2005 11:36:40 AM documented i n this encounter Plan of Treatment Not on filedocumented as of this encounter Visit Diagnoses Not on filedocumented in this encounter
--- OUTSIDE RECORDS SUMMARY | ~2019-10-16 | XMS | Encounter Summary ---
Demographics + + + | Address | [address] | | | [place] [address] | + + + | Home Phone [...] Providers + +------+ + | Care Plastic Products Sales Representative Name | Role | Phone [...] as of this encounter Progress Notes Interface, Lumber Hacker In - 01/12/2005 10:09 AM PDT [id number] [facility] Date: 12/11/2004 Clinic: Telephone [...] sent to Ms. Meehan' home address at [facility] [address] [address]. The address was confirmed with Ms. Meehan prior to sending. Ms. Meehan has a followup appointment in Dr. Padgett's clinic on December 19, 2004. Nathalia Richard R.N., B.S.N. Liliya Kirkpatrick. / [id number] / [id number] / [id number] / Electronically signed by Nuris Chapman 12-20-2004 05:05:06 PM docushazia i n this encounter Plan of Treatment Not on filedocumented as of this encounter Visit Diagnoses Not on filedocumented in this encounter"
--- OUTSIDE RECORDS SUMMARY | ~2019-10-16 | XMS | Encounter Summary ---
Demographics + + + | Address | [address] | | | [place] [address] | + + + | Home Phone [...] Providers + +------+ + | Care Assistant Media Planner Name | Role | Phone | [...] of this encounter Progress Notes Interface, Vp Ancillary In - 01/12/2006 1:16 AM PDTCLINIC DATE: 05/24/2002 NEUROMUSCULAR CLINIC PRIMARE CARE PROVIDER: Pedrito Gutierrez M.D., [place], [place]. REFERRING PROVIDER : Issac Meeks M.D., [facility] Endocrinology. REASON FOR CONSULTATION: Dr. Meeks recently [...] has some mild associated weakness in her mechanical engineering advisor. She was told she had carpal tunnel [...] use drugs. 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 She is applying for disability compensation. She lives in [facility] and is currently undergoing a divorce. [...] position sense throughout. Coordination: Fine finger movements, gjigzd-cq-vbnl, rapid alternating movements, and wlda-ci-kwqw maneuvers are intact though qiyqpt-tl-ocic is limited by poor depth perception due [...] Pete M.D. Neurology/Neuromuscular Fellow TBBuzz / HS [id number] / [id number] / [id number] / cc: Issac Meeks M.D. [facility] Endocrinology Pedrito Gutierrez M.D. [address] [place] [address]Kcusmpctshqfkg signed by Interface, Vp Ancillary In at 01/12/2006 1:1 6 AM PDTdocumented in this encounter Plan of Treatment Not on filedocumented as of this encounter Visit Diagnoses Not on filedocumented in this encounter
--- OUTSIDE RECORDS SUMMARY | ~2019-10-16 | XMS | Encounter Summary ---
Demographics + + + | Address | [address] | | | [place] [address] | + + + | Home Phone [...] Providers + +------+ + | Care Solution Analyst Name | Role | Phone | [...] + | 03/14/ | Refill | [facility] | Alanis, | Medication Refill | | 2018 | | MEDICINE [address] [place] [address] | MD Petrona | | | | | [facility] | [address] [place] [address] | | | | | [place] [address] | [place] [address] | | | | | [phone] | [phone] | | | | | | | [...] | | | | | [place] [address] | | | | | | [phone] | | | | | | | | +--------+ + + + + | 12/20/ | Office | Audiology | DarioElisabet ramires MS | | | 2019 | Visit | | [facility] [address] | | | | | [address] [place] | | | | | | [place], [place] [address] | | | | | | [phone] | | | | | | | | +--------+ + + + + | 12/20/ | Office | Otolaryngology | Ulysses Genao MD | | | 2019 | Visit | | [address] | | | | | | [address] [place], | | | | | | [place] [address] | | | | | | [phone] | | | | | | | | +--------+ + + + + documented as of this encounter Visit Diagnoses Not on filedocumented in this encounter"
--- OUTSIDE RECORDS SUMMARY | ~2019-10-16 | XMS | Encounter Summary ---
Demographics + + + | Address | [address] | | | [place] [address] | + + + | Home Phone [...] + +------+ + | Care Gauge And Instrument Inspector Name | Role | Phone | [...] + + | 04/09/ | Telephone | [facility] Division of | Carlos Arreola, | Erroneous Encounter | | 2005 | | Gastroenterology/Hep | [address] | - Disregard | | | | atology [address] | [address] | (duplicate call; see | | | | [address] | [place] [address] | other encounter ) | | | | Mailcode: [id number] | [phone] | | | | | [facility] | | | | | | [address] | | | | | | [place], [place] | | | | | | [address] | | | | | | [phone] | | | +--------+ + + + [...]
--- OUTSIDE RECORDS SUMMARY | ~2019-10-16 | XMS | Encounter Summary ---
Demographics + + + | Address | [address] | | | [place] [address] | + + + | Home Phone [...] | | [facility] | [address] [facility] | | | | | [facility] | [address] [place], | | | | | [address] | [place] [address] | | | | | [address] | [phone] | | | | | Physician's | | | | | | Pavilion, 1st floor | | | | | | [place], [place] | | | | | | [address] | | | | | | [phone] | | | +--------+ + + + [...] | | + +---------+--------+ + + | [place] DXA BONE | Imaging | Routin | [...]
--- OUTSIDE RECORDS SUMMARY | ~2019-10-16 | XMS | Encounter Summary ---
Demographics + + + | Address | [address] | | | [place] [address] | + + + | Home Phone [...] + +------+ + | Care Security System Technician Name | Role | Phone [...] Required | | | i, | [address] [place] | | | | | osteoporosis | Sulaiman-Russell | [place], | | | | | without | , MD [address] | [place] [address] | | | | | current | [address] | Phone: | | | | | pathological | [place], | [phone] | | | | | fracture | [place] | Fax: | | | | | | [address] | [phone] | | | | | | Phone: | | | | | | | [phone] | | | | | | | Fax: | | | | | | | [phone] | | +--------+ + + + + + Reason for Visit + + + | Reason | Comments | + + + | Medication Orders | | + + + Encounter Details +--------+ + + + + | Date | Type | Department | Care Team | Description | +--------+ + + + + | 09/20/ | Telephone | [facility] | Alanis, | Medication Orders | | 2019 | | MEDICINE [address] [place] [address] | MD Petrona | | | | | [facility] | [address] [place] [address] | | | | | [place] [address] | [place] [address] | | | | | [phone] | [phone] | | | | | | | [...] | | | | [address] [facility] | | | | | | [place] [address] | | | | | | [phone] | | | | | | | | +--------+ + + + + | 12/20/ | Office | Audiology | Elisabet Munson MS | | | 2019 | Visit | | [facility] [address] | | | | [address] [place] | | | | | | [place] [address] | | | | | | [phone] | | | | | | | | +--------+ + + + + | 12/20/ | Office | Otolaryngology | Ulysses Genao MD | | | 2019 | Visit | | [address] | | | | | | [address] [place], | | | | | | [place] [address] | | | | | | [phone] | | | | | | | [...]
--- OUTSIDE RECORDS SUMMARY | ~2019-10-16 | XMS | Encounter Summary ---
Demographics + + + | Address | [address] | | | [place] [address] | + + + | Home Phone [...] Providers + +------+ + | Care Bench Worker Apprentice Name | Role | Phone [...] + + | 09/03/ | Telephone | [facility] | Alanis, | Fall; Hip Pain | | 2018 | | MEDICINE [address] [place] [address] | MD Petrona | | | | | [facility] | [address] [place] [address] | | | | | [place] [address] | [place] [address] | | | | | [phone] | [phone] | | | | | | | [...] | | | | | [place] [address] | | | | | | [phone] | | | | | | | | +--------+ + + + + | 12/20/ | Office | Audiology | Dariokeyla CeasarMS rafa | | | 2019 | Visit | | [facility] [address] | | | | | [address] [place] | | | | | | [place], [place] [address] | | | | | | [phone] | | | | | | | | +--------+ + + + + | 12/20/ | Office | Otolaryngology | Ulysses Genao MD | | | 2019 | Visit | | [address] | | | | | | [address] [place], | | | | | | [place] [address] | | | | | | [phone] | | | | | | | | +--------+ + + + + documented as of this encounter Visit Diagnoses Not on filedocumented in this encounter"
--- OUTSIDE RECORDS SUMMARY | ~2019-10-16 | XMS | Encounter Summary ---
Demographics + + + | Address | [address] | | | [place] [address] | + + + | Home Phone [...] Team Providers + +------+ + | Care Fruit Or Nut Farmworker Name | Role | Phone | [...] | and counseling | | | | [facility] | [place], [place] | (08/28/08 Lab | | | | and Healing, | [address] | results) | | | | [place] [address] [facility] | [phone] | | | | | [place], [place] | | | | | | [address] | | | | | | [phone] | | | +--------+ + + + [...]
--- OUTSIDE RECORDS SUMMARY | ~2019-10-16 | XMS | Encounter Summary ---
Demographics + + + | Address | [address] | | | [place] [address] | + + + | Home Phone [...] Providers + +------+ + | Care Inspector Set Up And Lay Out Name | Role | Phone | [...] [address] | | | | | [place], [place] | [place] | | | | | [address] | [address] | | | | | [phone] | [phone] | | | | | | | [...] [facility] | [address] | [place] [address] | | | PATHOLOGY | [address] | | | + + + + + | [facility] | [address] | [place] [address] | | | PATHOLOGY | [address] [...] + + + + | [facility] DEPARTMENT OF | [address] | [place] [address] | | | PATHOLOGY | [address] | | | + + + + + | [place] DEPARTMENT OF | [address] | [place] [address] | | | PATHOLOGY | [address] [...] + + + + | [facility] DEPARTMENT OF | [address] [facility] | [place] [address] | | | PATHOLOGY | [address] | | | + + + + + | [facility] DEPARTMENT OF | [address] [facility] | [place] [address] | | | PATHOLOGY | [address] [...] + | [facility] | [address] [place] [address] | [place] [address] | | | PATHOLOGY | [address] | | | + + + + + | [facility] DEPARTMENT OF | [facility] | [place] [address] | | | PATHOLOGY | [address] | | | + + + + + documented in this encounter Visit Diagnoses Not on filedocumented in this encounter"
--- OUTSIDE RECORDS SUMMARY | ~2019-10-16 | XMS | Encounter Summary ---
Demographics + + + | Address | [address] | | | [place] [address] | + + + | Home Phone [...] Team Providers + +------+ + | Care Machinery Engineer Name | Role | Phone | + +------+ + | Petrona Thapa | PCP | | | MD | | | + +------+ + Encounter Details +--------+ + + + + | Date | Type | Department | Care Team | Description | +--------+ + + + + | 09/01/ | Abstract | [facility] | Provider, | | | 2018 | | GASTROENTEROLOGY | MD Colin [address] | | | | | [address] [facility] | Sulma Kovacs. | | | | | [address] [place] | [place] [address] | | | | | [address] | | | | | | [phone] | | | +--------+ + + + [...] | | | | | [place] [address] | | | | | | [phone] | | | | | | | | +--------+ + + + + | 12/20/ | Office | Audiology | Elisabet Munson MS | | 2019 | Visit | | [facility] [address] | | | | | | [facility] [address] | | | | | | [place] [address] | | | | | | [phone] | | | | | | | | +--------+ + + + + | 12/20/ | Office | Otolaryngology | Ulyssse Genao MD | | | 2019 | Visit | | [address] [facility] | | | | | | [address] [place], | | | | | | [place] [address] | | | | | | [phone] | | | | | | | | +--------+ + + + + documented as of this encounter Visit Diagnoses Not on filedocumented in this encounter"
--- OUTSIDE RECORDS SUMMARY | ~2019-10-16 | XMS | Encounter Summary ---
Demographics + + + | Address | [address] | | | [place] [address] | + + + | Home Phone [...] Team Providers + +------+ + | Care Photography Professor Name | Role | Phone | [...] as of this encounter Progress Notes Interface, Digital Sales Representative In - 02/15/2006 2:03 AM PDT [id number] GEOVANNI SKELTON [place] [id number] Clinic Date: 10/23/2005 Clinic: Endocrinology Subjective: Belinda [...] her back on October 06, 2005, in [place], [place]. This study showed a moderate central disk bulge at L4-L5 consistent with a herniated nucleus pulposus. There has been some discussion by her physicians in [place] about the possibility of giving her epidural [...] most recent laboratory studies were performed in [place] on July 02, 2005. At that time, [...] months. Beto Meeks M.D. PD / HS [id number] / [id number] / [id number] / cc: Joanna Arshad M.D. [address] [place] [address] Electronically signed by Beto Meeks 02-14-2006 02:02:42 AM documented i n this encounter Plan of Treatment Not on filedocumented as of this encounter Visit Diagnoses Not on filedocumented in this encounter"
--- OUTSIDE RECORDS SUMMARY | ~2019-10-16 | XMS | Encounter Summary ---
Demographics + + + | Address | [address] | | | [place] [address] | + + + | Home Phone [...] Providers + +------+ + | Care Concrete Mixer Loader Truck Mounted Name | Role | Phone | + [...] | 06/30/ | Refill | [facility] | Alanis, | Medication Refill | | 2017 | | MEDICINE [address] [place] [address] | MD Petrona | | | | | [facility] | [address] [place] [address] | | | | | [place] [address] | [place] [address] | | | | | [phone] | [phone] | | | | | | | [...] | | | | | [place] [address] | | | | | | [phone] | | | | | | | | +--------+ + + + + | 12/20/ | Office | Audiology | Elisabet Munson MS | | | 2019 | Visit | | [facility] [address] | | | | [address] [place] | | | | | | [place] [address] | | | | | | [phone] | | | | | | | | +--------+ + + + + | 12/20/ | Office | Otolaryngology | Ulysses Genao MD | | | 2019 | Visit | | [address] | | | | | | [address] [place], | | | | | | [place] [address] | | | | | | [phone] | | | | | | | | +--------+ + + + + documented as of this encounter Visit Diagnoses + + | Diagnosis | + + | Bronchitis - Primary Bronchitis, not specified as acute or chronic | + + documented in this encounter"
--- OUTSIDE RECORDS SUMMARY | ~2019-10-16 | XMS | Encounter Summary ---
Demographics + + + | Address | [address] | | | [place] [address] | + + + | Home Phone [...] Team Providers + +------+ + | Care Bailer Operators Supervisor Name | Role | Phone [...] | | | | SURGERY - | [place], [place] | [address] [place] | | | | | UROLOGY | [address] | for Health | | | | | | Phone: | dat [place], | | | | | | [phone] | [address], | | | | | | Fax: | 10th Floor | | | | | | [phone] | [place], [place] | | | | | | | [address] | | | | | | | Phone: | | | | | | | [phone] | | | | | | | Fax: | | | | | | | [phone] | +--------+--------+ + + + + Reason [...] | Status Post | | | | [facility] | [facility] [place] | Bariatric Surgery | | | | and Healing, | [address] | | | | | [facility] | [phone] | | | | | Floor [place], [place] | | | | | | [address] | | | | | | [phone] | | | +--------+---------+ + + + [...] coughing. Medications: Fentanyl 25 mcg 72 hours, [place]/JOJO 10 mg/325 mg PRN Q 6 hrs, [...]
--- OUTSIDE RECORDS SUMMARY | ~2019-10-16 | XMS | Encounter Summary ---
Demographics + + + | Address | [address] | | | [place] [address] | + + + | Home Phone [...] Providers + +------+ + | Care Shuttle Veneering Supervisor Name | Role | Phone | [...] Rd | | | | | | [place], [place] | | | | | | [address] | | | +--------+ + + + [...]
--- OUTSIDE RECORDS SUMMARY | ~2019-10-16 | XMS | Encounter Summary ---
Demographics + + + | Address | [address] | | | [place] [address] | + + + | Home Phone [...] Team Providers + +------+ + | Care Pasta Maker Name | Role | Phone | [...] Services | Therapy | Acute pain | [place] | [facility] | | | Required | | of right | Eliud, | PHYSICAL | | | | | shoulder | MD [address] | THERAPY 14[address] | | | | | Tear of | [address] | [place] | | | | | right | [place], | [place], [place] | | | | | supraspinatu | [place] | [address] | | | | | s tendon, | [address] | Phone: | | | | | initial | Phone: | [phone] | | | | | encounter | [phone] | Fax: | | | | | | Fax: | [phone] | | | | | | [phone] | | +--------+ + + + + [...] | | right | [address] | [address] Phone: | | | | | supraspinatu | [place], | [phone] | | | | | s tendon, | [place] | Fax: | | | | | initial | [address] | [phone] | | | | | encounter | Phone: | | | | | | | [phone] | | | | | | | Fax: | | | | | | | [phone] | | +--------+ + + + + + Encounter Details +--------+---------+ + + + | Date | Type | Department | Care Team | Description | +--------+---------+ + + + | 02/23/ | Office | [facility] | Lc Vail | Acute pain of right | | 2018 | Visit | ORTHOPEDIC SURGERY | MD Eliud [address] | shoulder; Tear of | | | | [address] [facility] | [facility] | right supraspinatus | | | | [place] | [place] [address] | tendon, initial | | | | [address] | [phone] | encounter | | | | [phone] | | | +--------+---------+ + + + [...] the shoulder. Try to hold the stretch [id number]. 3. Work up to [id number] of this stretch,3times a day. Work up [...] ask your healthcare provider. Date Last Reviewed: 07/16/[id number] [employer]. [address] [place] [address], [place] [address]. All righ ts reserved. This information is not intended as a substitute for professional medical care. Always follow your healthcare professional's instructions. documented in this encounter Progress Notes Lc Vail MD - 02/23/2018 1:30 PM PDTFormatting of this note might be different fro m the original. [facility] HISTORY AND PHYSICAL EXAMINATION [...] worse as time goes on. She quit Cel[employer] ng in 2013. Past Medical History: Past [...] COLONOSCOPY; Surgeon: Luther Brito MD; Location: [facility] MEDICAL PROCEDURE UNIT DILATION AND CURETTAGE OF UTERUS ELBOW SURGERY FINGER TRIGGER RELEASE 2002 FINGER TRIGGER RELEASE 2009 GASTRIC BYPASS SURGERY 2004 HYSTERECTOMY 05/14/1980 JOINT REPLACEMENT Bilateral 2007,2008 KNEE ARTHROSCOPY 2005 LAPAROSCOPY 01/27/2015 LAPAROTOMY 2008 ROTATOR CUFF REPAIR 2005 SPINE SURGERY TONSILLECTOMY 1964 UPPER GASTROINTESTINAL ENDOSCOPY N/A 12/18/2017 Procedure: EGD; Surgeon: Luther Brito MD; Location: [facility] MEDICAL PROCEDURE UNIT Allergies: Allergies Allergen Reactions Codeine Sulfate Nausea Only Levofloxacin Hives, Itching and Rash Amitriptyline Hcl Other (See Comments) Confused and questionable for seizures Uihbvkkdla-Tlhd-Iqtzigax Hives and Rash Cephalexin Hives Ciprofloxacin Hives [...] 1. Acute pain of right shoulder * [facility] Physical Therapy - AMB Referral triamcinolone acetonide (KENALOG-40) 40 mg/mL injection 40 mg 2. Tear of right supraspinatus tendon, initial encounter * [facility] Physical Therapy - AMB Refe [...] injection. She is very symptomatic at [facility] and states that she has a [...] made to ensure accuracy; however, inadvertent computerized brass plater errors may be pre sent. I appreciate the opportunity to help with the management of this patient. Lc Vail MD [facility] umented in this encounter Plan of [...] | | | | | | [place] [address] | | | | | | [phone] | | | | | | | | +--------+ + + + + | 12/20/ | Office | Audiology | Elisabet Munson MS | | | 2019 | Visit | | [facility] [address] | | | [address] [place] | | | | | | [place] [address] | | | | | | [phone] | | | | | | | | +--------+ + + + + | 12/20/ | Office | Otolaryngology | Ulysses Genao MD | | | 2019 | Visit | | [address] | | | | | | [address] [place], | | | | | | [place] [address] | | | | | | [phone] | | | | | | | [...]
--- OUTSIDE RECORDS SUMMARY | ~2019-10-16 | XMS | Encounter Summary ---
Demographics + + + | Address | [address] | | | [place] [address] | + + + | Home Phone [...] Team Providers + +------+ + | Care Fireworks Inspector Name | Role | Phone | [...] + + | 05/29/ | Office | [facility] Comprehensive | Delfina Molina, | Chronic Abdominal | | 2005 | Visit | Pain Center at | ANP | Pain; Cervical Pain; | | | | [facility] | | Joint pain 719.40; | | | | [address] | | Depression | | | | Mailcode: CH15P | | | | | | [facility] | | | | | | and Healing, | | | | | | Building | | | | | | Floor [place], [place] | | | | | | [address] | | | | | | [phone] | | | +--------+---------+ + + + [...] a Physical Therapy evaluation here at the [facility] in [place]. 3. Patient will be referred for a Psychology evaluation here at the [facility]. 4. Following the completion of these evaluations, [...] Belinda Meehan is a 46 y.o. female [id number] Chief Complaint: Patient presents with: Pain - [...] as PAIN MEDICINES: Opioids: Hydrocodone (Vicodin, Lortab, [place]): Why stopped?: don't remember. Came off due [...] HX [place]-OOPHORECTOMY COLONOSCOPY Comment: 03/2006 HX TONSILLECTOMY FL D&C AFTER DELIVERY FL INJECT TRIGGER POINT, 1 OR 2 Family [...] a Physical Therapy evaluation here at the [facility]. 3. Patient will be referred for a Psychology evaluation here at the [facility] Pain [facility] er. 4. Following the completion [...] you for [facility] [place] [facility] management evaluation. I trust that you will find the recomm endations satisfactory and that you will be able to implement these in the care of your mehreen ent. Should you have any concerns or questions, please contact me, I would be happy to add ress those with you. DELFINA MOLINA [facility] [place] Mail code CH 4P [place] [facility] [address] [place] [address] metimothy Tasha - 05/29/2006 1:51 PM [...] drinking? no -Do you ever drink an eye-machine ii coremaker in the morning to relieve the shakes? [...] stressful life experiences recently? yes If yes, explain:marine chronometer assembler brigida pain GOALS AND EXPECTATIONS 23. What do you expect from our pain program? Help in coping with the pain 24. What types of treatment do you expect from your visits to the [facility] Center ? Stress Management documented in [...]
--- OUTSIDE RECORDS SUMMARY | ~2019-10-16 | XMS | Encounter Summary ---
Demographics + + + | Address | [address] | | | [place] [address] | + + + | Home Phone [...] Team Providers + +------+ + | Care Bat Carrier Name | Role | Phone | [...] + + | 01/04/ | Telephone | [facility] | Ulysses Genao MD | Other | | 2017 | | OTOLARYNGOLOGY [address] | [address] [facility] | | | | | [address] [facility] [address] | [address] [place], | | | | | [place] | [place] [address] | | | | | [address] | [phone] | | | | | [phone] | | | +--------+ + + + [...] | | | | | [place] [address] | | | | | | [phone] | | | | | | | | +--------+ + + + + | 12/20/ | Office | Audiology | Elisabet Munson MS | | 2019 | Visit | | [facility] [address] | | | | [address] [place] | | | | | | [place] [address] | | | | | | [phone] | | | | | | | | +--------+ + + + + | 12/20/ | Office | Otolaryngology | Ulysses Genao MD | | | 2020 | Visit | | [address] [facility] | | | | | | [address] [place], | | | | | | [place] [address] | | | | | | [phone] | | | | | | | | +--------+ + + + + documented as of this encounter Visit Diagnoses Not on filedocumented in this encounter"
--- OUTSIDE RECORDS SUMMARY | ~2019-10-16 | XMS | Encounter Summary ---
Demographics + + + | Address | [address] | | | [place] [address] | + + + | Home Phone [...] Providers + +------+ + | Care Fly Rail Operator Name | Role | Phone | + +------+ + PCP | Unavailable | + +------+ + Encounter Details +--------+ + + + + | Date | Type | Department | Care Team | Description | +--------+ + + + + | 08/09/ | Results | | Other, Faculty | | | 2002 | Only | | [phone] | | +--------+ + + + + [...] + | Ordered by [facility] | [facility] | | | DEPARTMENT OF | | | PATHOLOGY | + + + + + + + + | Performing | Address | City/State/Zipcode | Phone Number | | Organization | | | | + + + + + | [facility] DEPARTMENT OF | [facility] | [place] [address] | | | PATHOLOGY | [address] | | | + + + + + | [facility] DEPARTMENT OF | [facility] | [place] [address] | | | PATHOLOGY | [address] | | | + + + + + documented in this encounter Visit Diagnoses Not on filedocumented in this encounter"
--- OUTSIDE RECORDS SUMMARY | ~2019-10-16 | XMS | Encounter Summary ---
Demographics + + + | Address | [address] | | | [place] [address] | + + + | Home Phone [...] + +------+ + | Care Project Management Manager Name | Role | Phone [...] [id number] | | | | | | [place], [place] | | | | | | [address] | | | | | | [phone] | | | +--------+ + + + [...]
--- OUTSIDE RECORDS SUMMARY | ~2019-10-16 | XMS | Encounter Summary ---
Demographics + + + | Address | [address] | | | [place] [address] | + + + | Home Phone [...] Team Providers + +------+ + | Care [place] Program Coordinator Name | Role | Phone [...] + + | 05/18/ | Telephone | [facility] | Alanis, | Referral | | 2017 | | MEDICINE [address] [place] [address] | MD Petrona | | | | | [facility] | [address] [place] [address] | | | | | [place] [address] | [place] [address] | | | | | [phone] | [phone] | | | | | | | [...] | | | | | [place] [address] | | | | | | [phone] | | | | | | | | +--------+ + + + + | 12/20/ | Office | Audiology | Elisabet Munson MS | | 2019 | Visit | | [facility] [address] | | | | | [address] | | | | | | [place] [address] | | | | | | [phone] | | | | | | | | +--------+ + + + + | 12/20/ | Office | Otolaryngology | Ulysses Genao MD | | | 2020 | Visit | | [address] | | | | | | [address] [place], | | | | | | [place] [address] | | | | | | [phone] | | | | | | | | +--------+ + + + + documented as of this encounter Visit Diagnoses Not on filedocumented in this encounter"
--- OUTSIDE RECORDS SUMMARY | ~2019-10-16 | XMS | Encounter Summary ---
Demographics + + + | Address | [address] | | | [place] [address] | + + + | Home Phone [...] Providers + +------+ + | Care Assembler Gold Frame Name | Role | Phone | + [...] Rd | | | | | | [place], [place] | | | | | | [address] | | | +--------+ + + + [...] as of this encounter Progress Notes Interface, Facsimile Operator In - 12/06/2006 2:32 AM PDT [id number] GEOVANNI [place] [id number] Clinic Date: 10/29/2006 Clinic: Endocrinology Subjective: Belinda [...] been working with the Pain Clinic at [facility] to optimize her pain management. Fortunately, [...] patch 25 mcg for 72 hours. 2. [place]/acetaminophen 10 mg/325 mg, 1 every 6 hours [...] months. Beto Meeks M.D. PD / HS [id number] / [id number] / [id number] / [id number] cc: Pedrito Gutierrez M.D. [address] [place] [address] Chris Padgett M.D. Electronically signed by Beto Meeks 12-05-2006 05:17:05 AM documented in this encounter Plan of Treatment Not on filedocumented as of this encounter Visit Diagnoses Not on filedocumented in this encounter"
--- OUTSIDE RECORDS SUMMARY | ~2019-10-16 | XMS | Encounter Summary ---
Demographics + + + | Address | [address] | | | [place] [address] | + + + | Home Phone [...] Team Providers + +------+ + | Care Manifest Clerk Name | Role | Phone | [...] [place] | | | | | | [address] | | | | | | [phone] | | | +--------+ + + + [...] | | | | | [place] [address] | | | | | | [phone] | | | | | | | | +--------+ + + + + | 12/20/ | Office | Audiology | Elisabet Munson MS | | 2019 | Visit | | CASSANDRA MACK | | | | | | [facility] Laron Zhao | | | | | | [place] [address] | | | | | | [phone] | | | | | | | | +--------+ + + + + | 12/20/ | Office | Otolaryngology | Ulysses Genao MD | | | 2020 | Visit | | [address] [place] | | | | | | [address] [place], | | | | | | [place] [address] | | | | | | [phone] | | | | | | | | +--------+ + + + + documented as of this encounter Visit Diagnoses Not on filedocumented in this encounter"
--- OUTSIDE RECORDS SUMMARY | ~2019-10-16 | XMS | Encounter Summary ---
Demographics + + + | Address | [address] | | | [place] [address] | + + + | Home Phone [...] Providers + +------+ + | Care Cleaning Matron Name | Role | Phone | + [...] + + | 05/03/ | Telephone | [facility] | Alanis, | Medication Prior | | 2017 | | MEDICINE [address] [place] [address] | MD Petrona | Authorization | | | | [facility] | [address] [place] [address] | (Sumatriptan) | | | | [place] [address] | [place] [address] | | | | | [phone] | [phone] | | | | | | | [...] | | [facility] [address]ICA [address]RI[address] | | | | | | [place] [address] | | | | | | [phone] | | | | | | | | +--------+ + + + + | 12/20/ | Office | Audiology | Elisabet Munson MS | | | 2019 | Visit | | [facility] [address] | | | [address] [place] [place] | | | | | | [place] [address] | | | | | | [phone] | | | | | | | | +--------+ + + + + | 12/20/ | Office | Otolaryngology | Ulysses Genao MD | | 2019 | Visit | | [address] [place] | | | | | | [address] [place], | | | | | | [place] [address] | | | | | | [phone] | | | | | | | | +--------+ + + + + documented as of this encounter Visit Diagnoses Not on filedocumented in this encounter"
--- OUTSIDE RECORDS SUMMARY | ~2019-10-16 | XMS | Encounter Summary ---
Demographics + + + | Address | [address] | | | [place] [address] | + + + | Home Phone [...] + +------+ + | Care Senior Product Development Manager Name | Role | Phone [...] + + | 05/06/ | Telephone | [facility] | Alanis, | Other | | 2017 | | MEDICINE [address] [place] [address] | MD Petrona | | | | | [facility] | [address] [place] [address] | | | | | [place] [address] | [place] [address] | | | | | [phone] | [phone] | | | | | | | [...] | | | | | [place] [address] | | | | | | [phone] | | | | | | | | +--------+ + + + + | 12/20/ | Office | Audiology | Elisabet Munson MS | | 2019 | Visit | | [facility] [address] | | | | | [address] [place] | | | | | | [place] [address] | | | | | | [phone] | | | | | | | | +--------+ + + + + | 12/20/ | Office | Otolaryngology | Ulysses Genao MD | | | 2020 | Visit | | [address] [facility] | | | | | | [address] [place], | | | | | | [place] [address] | | | | | | [phone] | | | | | | | | +--------+ + + + + documented as of this encounter Visit Diagnoses Not on filedocumented in this encounter"
--- OUTSIDE RECORDS SUMMARY | ~2019-10-16 | XMS | Encounter Summary ---
Demographics + + + | Address | [address] | | | [place] [address] | + + + | Home Phone [...] Team Providers + +------+ + | Care Hem Marker Name | Role | Phone | [...] + | 06/25/ | Refill | [facility] | Alanis, | Medication Refill | | 2018 | | MEDICINE [address] [place] [address] | MD Petrona | | | | | [facility] | [address] [place] [address] | | | | | [place] [address] | [place] [address] | | | | | [phone] | [phone] | | | | | | | [...] | | | | | [place] [address] | | | | | | [phone] | | | | | | | | +--------+ + + + + | 12/20/ | Office | Audiology | DarioElisabet ramires MS | | | 2019 | Visit | | [facility] [address] | | | | [address] [place] [address] [place] | | | | | | [place], [place] [address] | | | | | | [phone] | | | | | | | | +--------+ + + + + | 12/20/ | Office | Otolaryngology | Ulysses Genao MD | | | 2019 | Visit | | [address] [place] | | | | | | [address] [place], | | | | | | [place] [address] | | | | | | [phone] | | | | | | | | +--------+ + + + + documented as of this encounter Visit Diagnoses Not on filedocumented in this encounter"
--- OUTSIDE RECORDS SUMMARY | ~2019-10-16 | XMS | Encounter Summary ---
Demographics + + + | Address | [address] | | | [place] [address] | + + + | Home Phone [...] Team Providers + +------+ + | Care Conductor Road Freight Name | Role | Phone | + [...] | Diagnoses | Rileyacle, | Fili Pt Fishing Accessories Maker | | | | Therapy | Muscle | NIHARIKA Jean | Chh[address] | | | | | strain Neck | [address] | | | | | pain | [address] | Mailcode: | | | | | Fibromyalgia | [place], [place] | [facility] | | | | | Radicular | [address] | for Health | | | | | pain in left | | and Healing, | | | | | arm | | Building 1 | | | | | Procedures | | [place], [place] | | | | | PHYSICAL | | [address] | | | | | THERAPY | | Phone: | | | | | REFERRAL | | [phone] | +--------+--------+ + + + + Reason for Visit + + + | Reason | Comments | + + + | LBP - Low back pain | | + + + Encounter Details +--------+---------+ + + + | Date | Type | Department | Care Team | Description | +--------+---------+ + + + | 08/22/ | Office | [facility] | Delfina Lambert, | Muscle Strain hips; | | 2008 | Visit | Pain Center at | ANP | Fibromyalgia; Neck | | | | [facility] | | Pain; Radicular Pain | | | | [address] | | in Left Arm; | | | | Mailcode: CH15P | | Dizziness; Black | | | | [place] [facility] | | Out; Falling | | | | and Healing, | |Falling | | | | Building | | | | | | Floor [place], [place] | | | | | | [address] | | | | | | [phone] | | | +--------+---------+ + + + [...] visit Schedule MRI of the neck at [facility] Use your TENS for the muscle pain Schedule follow up after the MRI to review results documented in this encounter Progress Notes Delfina Lambert ANP - 08/22/2008 10:22 AM PDTFormatting of this note might be different fr om the original. 08/22/2008 Belinda Meehan is a 48 y.o. female [facility] Comprehensive Pain Center Return Visit Chief [...] drawing has be completed, which I reviewed. [facility] Brief Pain Inventory: (ten= worst [...] appointment to see lumbar spine surgery in [place] on . Psychiatric History: depressed mood, sleep [...] 278 01/18 Paniculectomy Hx lumbar fusion 05/2008 [id number] with bone spur removals Family History Problem [...] to get the MRI results befor planning [facility]. Belinda was compliant with all aspects [...] [facility] Mail code CH 4P [facility] and [address] [address] Ailyn Foster Malissa - 03/2009 [...]
--- OUTSIDE RECORDS SUMMARY | ~2019-10-16 | XMS | Encounter Summary ---
Demographics + + + | Address | [address] | | | [place] [address] | + + + | Home Phone [...] Providers + +------+ + | Care Client Delivery Manager Name | Role | Phone [...]
--- OUTSIDE RECORDS SUMMARY | ~2019-10-16 | XMS | Encounter Summary ---
Demographics + + + | Address | [address] | | | [place] [address] | + + + | Home Phone [...] Team Providers + +------+ + | Care Check Cashier Name | Role | Phone | [...] + + | 05/26/ | Telephone | [facility] | Alanis, | Diarrhea | | 2018 | | MEDICINE [address] [place] [address] | MD Petrona | | | | | [facility] | [address] [place] [address] | | | | | [place] [address] | [place] [address] | | | | | [phone] | [phone] | | | | | | | [...] | | | | | [place] [address] | | | | | | [phone] | | | | | | | | +--------+ + + + + | 12/20/ | Office | Audiology | Elisabet Munson MS | | 2019 | Visit | | [facility] [address] | | | | | [address] [place] | | | | | | [place] [address] | | | | | | [phone] | | | | | | | | +--------+ + + + + | 12/20/ | Office | Otolaryngology | Ulysses Genao MD | | | 2020 | Visit | | [address] | | | | | | [address] [place], | | | | | | [place] [address] | | | | | | [phone] | | | | | | | | +--------+ + + + + documented as of this encounter Visit Diagnoses Not on filedocumented in this encounter"
--- OUTSIDE RECORDS SUMMARY | ~2019-10-16 | XMS | Encounter Summary ---
Demographics + + + | Address | [address] | | | [place] [address] | + + + | Home Phone [...] Team Providers + +------+ + | Care Fall Internship Name | Role | Phone | [...] + | 01/04/ | Telephone | [facility] | Ulysses Genao MD | Other | | 2017 | | OTOLARYNGOLOGY [address] | [address] [facility] | | | | | [address] [facility] [address] | [address] [place], | | | | | [place] | [place] [address] | | | | | [address] | [phone] | | | | | [phone] | | | +--------+ + + + [...] | | | | | [place] [address] | | | | | | [phone] | | | | | | | | +--------+ + + + + | 12/20/ | Office | Audiology | Elisabet Munson MS | | 2019 | Visit | | [facility] [address] | | | | | [address] [place] [address] [place] | | | | | | [place] [address] | | | | | | [phone] | | | | | | | | +--------+ + + + + | 12/20/ | Office | Otolaryngology | Ulysses Genao MD | | | 2020 | Visit | | [address] [facility] | | | | | | [address] [place], | | | | | | [place] [address] | | | | | | [phone] | | | | | | | | +--------+ + + + + documented as of this encounter Visit Diagnoses Not on filedocumented in this encounter"
--- OUTSIDE RECORDS SUMMARY | ~2019-10-16 | XMS | Encounter Summary ---
Demographics + + + | Address | [address] | | | [place] [address] | + + + | Home Phone [...] Providers + +------+ + | Care Fish Icer Name | Role | Phone | [...] Pavilion | | | | | | [place], [place] | | | | | | [address] | | | | | | [phone] | | | +--------+ + + + [...]
--- OUTSIDE RECORDS SUMMARY | ~2019-10-16 | XMS | Encounter Summary ---
Demographics + + + | Address | [address] | | | [place] [address] | + + + | Home Phone [...] Providers + +------+ + | Care Operations Recruiter Name | Role | Phone | [...] | | | | | [address] | [address] [place], [place] | | | | | [place], [place] | [address] | | | | | [address] | | | | | | [phone] | | | +--------+ + + + [...] Electronic Medical Record (EMR) system used by [facility] will be updated. The category used [...] insure continuity of care. Please contact the [facility] at with any [...] | | | | | [place] [address] | | | | | | [phone] | | | | | | | | +--------+ + + + + | 12/20/ | Office | Audiology | Elisabet Munson MS | | | 2019 | Visit | | [facility] [address] | | | | | [address] [place] [address] [place] | | | | | | [place] [address] | | | | | | [phone] | | | | | | | | +--------+ + + + + | 12/20/ | Office | Otolaryngology | Ulysses Genao MD | | | 2019 | Visit | | [address] [place] | | | | | | [address] [place], | | | | | | [place] [address] | | | | | | [phone] | | | | | | | | +--------+ + + + + documented as of this encounter Visit Diagnoses Not on filedocumented in this encounter"
--- OUTSIDE RECORDS SUMMARY | ~2019-10-16 | XMS | Encounter Summary ---
Demographics + + + | Address | [address] | | | [place] [address] | + + + | Home Phone [...] Team Providers + +------+ + | Care Willower Name | Role | Phone | + [...] | | | | Clinical Nutrition | [place], [place] | | | | | [address] | [address] | | | | | Loop Mailcode: OPC5 | [phone] | | | | | Outpatient Clinic | | | | | | [facility] | | | | | | [place] [address] | | | | | | [phone] | | | +--------+ + + + [...] Blood Test performed by | | | [facility]. | | + + + + + + + + | Performing | Address | City/State/Zipcode | Phone Number | | Organization | | | | + + + + + | [facility] | [address] | [place] [address] | | | LABORATORY | | | [...] + + + | [facility] | [address] | [place] [address] | | | LABORATORY | | | | + + + + + documented in this encounter Visit Diagnoses Not on filedocumented in this encounter"
--- OUTSIDE RECORDS SUMMARY | ~2019-10-16 | XMS | Encounter Summary ---
Demographics + + + | Address | [address] | | | [place] [address] | + + + | Home Phone [...] Refill Request | | 2007 | | [place] [address] | [address] [facility] | | | | | [place] Mailcode: CH4S | [facility] | | | | | [facility] | [place], [place] | | | | | and [place], | [address] | | | | | [facility] | [phone] | | | | | Floor [place], [place] | | | | | | [address] | | | | | | [phone] | | | +--------+--------+ + + + [...]
--- OUTSIDE RECORDS SUMMARY | ~2019-10-16 | XMS | Encounter Summary ---
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 Diagnosis: Newport I: 1. (296.32) Major depressive disorder, recurrent, moderate. 2. (309.24) Adjustment disorder with anxiety. 3. 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 Newport II: Deferred Newport III: abdominal pain, migraine headache, low back pain. Newport IV: low finances Newport V: GAF 55-60 Plan: Return in 3 months. Check mood, knee surgery, pacing, relaxation, activity, distraction. Continue cognitive/behavioral therapy. Discuss need for further sessions. Total time spent with patient was approximately 45 minutes. LUKASZ CHARLES PHD [facility] [address] [facility], 4th [place] [address] documented in this encount er Plan of [...]
--- OUTSIDE RECORDS SUMMARY | ~2019-10-16 | XMS | Encounter Summary ---
Demographics + + + | Address | [address] | | | [place] [address] | + + + | Home Phone [...] Team Providers + +------+ + | Care Hardwood Floor Installation Helper Name | Role | Phone [...] | | | Metabolism | bypass | [address] | [address] | | | | | Hypovitamino | [address], | Ave | | | | | sis D [address] | [address] | [place], [place] | | | | | nutritional | [place], [place] | [address] | | | | | deficiency | [address] | Phone: | | | | | Other | Phone: | [phone] | | | | | protein-jose manuel | [phone] | Fax: | | | | | nick | Fax: | [phone] | | | | | malnutrition | [phone] | | | | | | Weight | | | | | | | gain | | | | | | | Procedures | | | | | | | CONSULT TO | | | | | | | ENDO | | | | | | | [address] | | | | | | | [address] | | | +--------+--------+ + + + [...] | | [facility] | [place], [place] | Dx); Hypothyroidism; | | | | Pavilion [address] | [address] | Essential | | | | [address] | [phone] | hypertension 401.9; | | | | [facility] | | Fibromyalgia | | | | Physician's | | syndrome 729.1 | | | | Pavilion [place], | | | | | | [place] [address] | | | | | | [phone] | | | +--------+---------+ + + + [...] Hives Mainly in the legs Clindamycin Codeine Zahdpdt-Mbohjveipo-Kjz-Caff Balance problems Fioricet W/Codeine (Cgzmjtfddp-Iebaxzcabk-Vnu-Cod) Keflex (Cephalexin) Morphine IM ( only in [facility]) made gut pain worse 08/27/06: [...] U/L 41 ANION GAP 8 VITAMIN B12, [id number] pg/ml >2000 (H) HEMOGLOBIN A1C <=5.6 % [...] SERUM 15.0-85.0 pg/ml 222.9 (H) VITAMIN B12, [id number] pg/ml > 2000 HEMOGLOBIN A1C <=5.6 % [...]
--- OUTSIDE RECORDS SUMMARY | ~2019-10-16 | XMS | Encounter Summary ---
Demographics + + + | Address | [address] | | | [place] [address] | + + + | Home Phone [...] Team Providers + +------+ + | Care Telegraph Repeater Installer Name | Role | Phone | [...] + + | 08/04/ | Refill | [facility] | Alanis, | Medication Refill | | 2017 | | MEDICINE [address] [place] [address] | MD Petrona | | | | | [facility] | [address] [place] [address] | | | | | [place] [address] | [place] [address] | | | | | [phone] | [phone] | | | | | | | [...] | | | | | [place] [address] | | | | | | [phone] | | | | | | | | +--------+ + + + + | 12/20/ | Office | Audiology | DarioElisabet ramires MS | | | 2019 | Visit | | [facility] [address] | | | | | [address] [place] | | | | | | [place], [place] [address] | | | | | | [phone] | | | | | | | | +--------+ + + + + | 12/20/ | Office | Otolaryngology | Ulysses Genao MD | | | 2019 | Visit | | [address] [place] | | | | | | [address] [place], | | | | | | [place] [address] | | | | | | [phone] | | | | | | | | +--------+ + + + + documented as of this encounter Visit Diagnoses Not on filedocumented in this encounter"
--- OUTSIDE RECORDS SUMMARY | ~2019-10-16 | XMS | Encounter Summary ---
Demographics + + + | Address | [address] | | | [place] [address] | + + + | Home Phone [...] Providers + +------+ + | Care Human Development Professor Name | Role | Phone | + +------+ + | Maria Esther Cintron MD | PCP | | + +------+ + Encounter Details +--------+ + + + + | Date | Type | Department | Care Team | Description | +--------+ + + + + | 02/16/ | Telephone | [facility] | Chris Padgett, | | | 2007 | | [place] [address] | [address] [facility] | | | | | [place] Mailcode: CH4S | [address] | | | | | Center [facility] | [place], [place] | | | | | and Healing, | [address] | | | | | Building , 6th | [phone] | | | | | Floor [place], [place] | | | | | | [address] | | | | | | [phone] | | | +--------+ + + + [...]
--- OUTSIDE RECORDS SUMMARY | ~2019-10-16 | XMS | Encounter Summary ---
Demographics + + + | Address | [address] | | | [place] [address] | + + + | Home Phone [...] + +------+ + | Care Computer Typesetter Keyliner Name | Role | Phone | + [...] + + | 08/18/ | Telephone | [facility] | Miranda Lambert, | Follow-up Diabetic | | 2006 | | Pain Center at | ANP | Assessment | | | | [facility] | | | | | | [address] | | | | | | Mailcode: CH15P | | | | | | [facility] | | | | | | and Healing, | | | | | | Building | | | | | | Floor [place], [place] | | | | | | [address] | | | | | | [phone] | | | +--------+ + + + [...]
--- OUTSIDE RECORDS SUMMARY | ~2019-10-16 | XMS | Encounter Summary ---
Demographics + + + | Address | [address] | | | [place] [address] | + + + | Home Phone [...] Team Providers + +------+ + | Care Fertilizer Applicator Name | Role | Phone | [...] | | | | Clinical Nutrition | [place], [place] | | | | | [address] | [address] | | | | | Loop Mailcode: OPC5 | [phone] | | | | | Outpatient Clinic | | | | | | [facility] | | | | | | [place] [address] | | | | | | [phone] | | | +--------+ + + + [...] + | [facility] | [address] | [place] [address] | | | LABORATORY | | | [...] + + + | [facility] | [address] | [place] [address] | | | LABORATORY | | | [...] + | [facility] | [address] | [place] [address] | | | LABORATORY | | | | + + + + + documented in this encounter Visit Diagnoses Not on filedocumented in this encounter"
--- OUTSIDE RECORDS SUMMARY | ~2019-10-16 | XMS | Encounter Summary ---
Demographics + + + | Address | [address] | | | [place] [address] | + + + | Home Phone [...] Providers + +------+ + | Care Gastroenterology Nurse Practitioner Name | Role | Phone [...] | | PENDING | [address] | [place], | | | | | [address] | [place] [address] | | | | | | [place], | Phone: | | | | | | [place] | [phone] | | | | | | [address] | Fax: | | | | | | Phone: | [phone] | | | | | | [phone] | | | | | | | Fax: | | | | | | | [phone] | | +--------+ + + + + + Reason for Visit + + + | Reason | Comments | + + + | Vertigo (Recurrent) | | + + + Encounter Details +--------+ + + + + | Date | Type | Department | Care Team | Description | +--------+ + + + + | 11/18/ | Telephone | [facility] | Alanis, | Vertigo (Recurrent) | | 2017 | | MEDICINE [address] [place] [address] | MD Petrona | | | | | [facility] | [address] [place] [address] | | | | | [place] [address] | [place] [address] | | | | | [phone] | [phone] | | | | | | | [...] | | | | | [place] [address] | | | | | | [phone] | | | | | | | | +--------+ + + + + | 12/20/ | Office | Audiology | Elisabet Munson MS | | | 2019 | Visit | | [facility] [address] | | | [address] [place] | | | | | | [place] [address] | | | | | | [phone] | | | | | | | | +--------+ + + + + | 12/20/ | Office | Otolaryngology | Ulysses Genao MD | | | 2019 | Visit | | [address] [place] | | | | | | [address] [place], | | | | | | [place] [address] | | | | | | [phone] | | | | | | | [...]
--- OUTSIDE RECORDS SUMMARY | ~2019-10-16 | XMS | Encounter Summary ---
Demographics + + + | Address | [address] | | | [place] [address] | + + + | Home Phone [...] Providers + +------+ + | Care Gas Well Drilling Manager Name | Role | Phone | [...] + + | 02/18/ | Telephone | [facility] | Alanis, | Results | | 2018 | | MEDICINE [address] | MD Petrona | | | | | [facility] | [address] [place] [address] | | | | | [place] [address] | [place] [address] | | | | | [phone] | [phone] | | | | | | | [...] | | | | | [place] [address] | | | | | | [phone] | | | | | | | | +--------+ + + + + | 12/20/ | Office | Audiology | Elisabet Munson MS | | 2019 | Visit | | [facility] [address] | | | | | [address] [place] | | | | | | [place] [address] | | | | | | [phone] | | | | | | | | +--------+ + + + + | 12/20/ | Office | Otolaryngology | Ulysses Genao MD | | | 2020 | Visit | | [address] | | | | | | [address] [place], | | | | | | [place] [address] | | | | | | [phone] | | | | | | | | +--------+ + + + + documented as of this encounter Visit Diagnoses Not on filedocumented in this encounter"
--- OUTSIDE RECORDS SUMMARY | ~2019-10-16 | XMS | Encounter Summary ---
Demographics + + + | Address | [address] | | | [place] [address] | + + + | Home Phone [...] Providers + +------+ + | Care Tread Booker Name | Role | Phone | [...] + + | 01/25/ | Telephone | [facility] | Alanis, | Medical Problem | | 2017 | | MEDICINE [address] [place] [address] | MD Petrona | | | | | [facility] | [address] [place] [address] | | | | | [place] [address] | [place] [address] | | | | | [phone] | [phone] | | | | | | | [...] | | | | | [address] [place] | | | | | | [place] [address] | | | | | | [phone] | | | | | | | | +--------+ + + + + | 12/20/ | Office | Audiology | Ceasar MunsonahMS | | | 2019 | Visit | | [facility] [address] | | | | | | [address] [place] | | | | | | [place] [address] | | | | | | [phone] | | | | | | | | +--------+ + + + + | 12/20/ | Office | Otolaryngology | Ulysses Genao MD | | | 2019 | Visit | | [address] | | | | | | [address] [place], | | | | | | [place] [address] | | | | | | [phone] | | | | | | | | +--------+ + + + + documented as of this encounter Visit Diagnoses Not on filedocumented in this encounter"
--- OUTSIDE RECORDS SUMMARY | ~2019-10-16 | XMS | Encounter Summary ---
Demographics + + + | Address | [address] | | | [place] [address] | + + + | Home Phone [...] Providers + +------+ + | Care Travel Services Professional Name | Role | Phone | + +------+ + | Petrona Thapa | PCP | | | MD | | | + +------+ + Encounter Details +--------+ + + + + | Date | Type | Department | Care Team | Description | +--------+ + + + + | 03/02/ | [facility] | [facility] | Alanis, | Neck pain on right | | 2018 | Encounter | MED [facility] | MD Petrona | side | | | | [address] [place] | [address] [place] | | | | | [place], [place] | [place] [address] | | | | | [address] | [phone] | | | | | [phone] | | | +--------+ + + + [...] | | | | | [place] [address] | | | | | | [phone] | | | | | | | | +--------+ + + + + | 12/20/ | Office | Audiology | Elisabet Munson MS | | | 2019 | Visit | | [facility] [address] | | | | | | [address] [place] | | | | | | [place] [address] | | | | | | [phone] | | | | | | | | +--------+ + + + + | 12/20/ | Office | Otolaryngology | Ulysses Genao MD | | | 2019 | Visit | | [address] | | | | | | [address] [place], | | | | | | [place] [address] | | | | | | [phone] | | | | | | | [...]
--- OUTSIDE RECORDS SUMMARY | ~2019-10-16 | XMS | Encounter Summary ---
Demographics + + + | Address | [address] | | | [place] [address] | + + + | Home Phone [...] Providers + +------+ + | Care Computer Lab Assistant Name | Role | Phone [...] Thoracic or | [place], | [address] | | | | | lumbosacral | Carlos Armijo MD | [place], | | | | | neuritis or | [address] | [place] | | | | | | ST [place] | [address] | | | | | radiculitis, | [place], [place] | Phone: | | | | | unspecified | [address] | [phone] | | | | | Procedures | Phone: | Fax: | | | | | [place] INJECT | [phone] | [phone] | | | | | ANES/STEROID | Fax: | | | | | | FORAMEN | [phone] | | | | | | LUMBAR/SACRA | | | | | | | L W IMG | | | | | | | GUIDE ,1 | | | | | | | LEVEL IA | | | | | | | [...] + + + + | 01/19/ | [facility] | [facility] | Carlos Hsieh | Lumbar radiculopathy | | 2015 | Encounter | MED CTR XRAY [address] | T, [address] | primarily right | | | | [place] | [facility] [place] | | | | | [place] [address] | [address] | | | | | [phone] | | | | | | | Pressure Testing Technician, [facility] | | | | | | [address] [place] | | +--------+ + + + [...] | | | | | Karla [address] [facility] | | | | | | [place] [address] | | | | | | [phone] | | | | | | | | +--------+ + + + + | 12/20/ | Office | Audiology | Elisabet Munson MS | | | 2019 | Visit | | [facility] [address] | | | | | | [address] [place] | | | | | | [place] [address] | | | | | | [phone] | | | | | | | | +--------+ + + + + | 12/20/ | Office | Otolaryngology | Ulysses Genao MD | | | 2019 | Visit | | [address] | | | | | | [address] [place], | | | | | | [place] [address] | | | | | | [phone] | | | | | | | [...] radiculopathy ICD-9 Code 724.4 Belinda Basilio | NATHAN | | Shefali presents to the fluoroscopy suite for [facility] | | fluoroscopically-guided bilateral L5-S1 transforaminal [...] | [address] | [address] | [place], [place] | [phone] | | [facility] | | [address] | | | - IMAGING | | [...]
--- OUTSIDE RECORDS SUMMARY | ~2019-10-16 | XMS | Encounter Summary ---
Demographics + + + | Address | [address] | | | [place] [address] | + + + | Home Phone [...] Providers + +------+ + | Care Transcription Typist Name | Role | Phone | + [...] + | 02/24/ | Refill | [facility] | Alanis, | Medication Refill | | 2017 | | MEDICINE [address] [place] [address] | MD Petrona | | | | | [facility] | [address] [place] [place] [address] | | | | | [place] [address] | [place] [address] | | | | | [phone] | [phone] | | | | | | | [...] | | | | | [place] [address] | | | | | | [phone] | | | | | | | | +--------+ + + + + | 12/20/ | Office | Audiology | DarioElisabet ramires MS | | | 2019 | Visit | | [facility] [address] | | | | | | [address] [place] | | | | | | [place], [place] [address] | | | | | | [phone] | | | | | | | | +--------+ + + + + | 12/20/ | Office | Otolaryngology | Ulysses Genao MD | | | 2019 | Visit | | [address] | | | | | | [address] [place], | | | | | | [place] [address] | | | | | | [phone] | | | | | | | | +--------+ + + + + documented as of this encounter Visit Diagnoses Not on filedocumented in this encounter"
--- OUTSIDE RECORDS SUMMARY | ~2019-10-16 | XMS | Encounter Summary ---
Demographics + + + | Address | [address] | | | [place] [address] | + + + | Home Phone [...] Providers + +------+ + | Care Network Cable Installer Name | Role | Phone [...] [facility]rae | | | | | | [facility] | | | | | | [place], [place] | | | | | | [address] | | | | | | [phone] | | | +--------+ + + + [...]
--- OUTSIDE RECORDS SUMMARY | ~2019-10-16 | XMS | Encounter Summary ---
Demographics + + + | Address | [address] | | | [place] [address] | + + + | Home Phone [...] Providers + +------+ + | Care Regional Safety Manager Name | Role | Phone [...] | | | [facility] | [place], [place] | | | | | [address] | [address] | | | | | [address] | [phone] | | | | | Physician's | | | | | | Pavilion, [facility] floor | | | | | | [place], [place] | | | | | | [address] | | | | | | [phone] | | | +--------+ + + + [...] | | | | | performed at [facility] | | | | | | [facility] | | | | | | Laboratory | | | | + + + + + + + + | Specimen | + + | | + + + + + + + | Performing | Address | City/State/Zipcode | Phone Number | | Organization | | | | + + + + + | [facility] | [address] | [place] [address] | | | LABORATORY | | | [...] | + + + + + | [facility] | [address] | [place] [address] | | | LABORATORY | | | [...] | [facility] | | | | | [facility] | | | | | | Laboratories. | | | | + + + + + + + + | Specimen | + + | | + + + + + + + | Performing | Address | City/State/Zipcode | Phone Number | | Organization | | | | + + + + + | [facility] | [address] | [place] [address] | | | LABORATORY | | | [...] | | | SERUM | performed by [facility] | | | | | | [facility] | | | | | | Laboratories. | | | | + + + + + + + + | Specimen | + + | | + + + + + + + | Performing | Address | City/State/Zipcode | Phone Number | | Organization | | | | + + + + + | [facility] | [address] | [place] [address] | | | LABORATORY | | | [...] [place] DEPARTMENT OF | [address] [facility] | [place] [address] | | | PATHOLOGY | [address] | | | + + + + + | [place] DEPARTMENT OF | [address] [facility] | [place] [address] | | | PATHOLOGY | [address] [...] + | [facility] | [facility] | [place] [address] | | | PATHOLOGY | [address] | | | + + + + + | [facility] | [facility] | [place] [address] | | | PATHOLOGY | [address] | | | + + + + + documented in this encounter Visit Diagnoses Not on filedocumented in this encounter"
--- OUTSIDE RECORDS SUMMARY | ~2019-10-16 | XMS | Encounter Summary ---
Demographics + + + | Address | [address] | | | [place] [address] | + + + | Home Phone [...] Providers + +------+ + | Care Control Officer Manager Name | Role | Phone | [...] + + | 04/29/ | Telephone | [facility] | Alanis, | Medication Refill | | 2017 | | MEDICINE [address] [place] [address] | MD Petrona | Assistance | | | | [facility] | [address] [place] [address] | | | | | [place] [address] | [place] [address] | | | | | [phone] | [phone] | | | | | | | [...] | | | | | [place] [address] | | | | | | [phone] | | | | | | | | +--------+ + + + + | 12/20/ | Office | Audiology | Elisabet Munson MS | | | 2019 | Visit | | [facility] [address] | | | | | | [address] [place] | | | | | | [place] [address] | | | | | | [phone] | | | | | | | | +--------+ + + + + | 12/20/ | Office | Otolaryngology | Ulysses Genao MD | | | 2019 | Visit | | [address] | | | | | | [address] [place], | | | | | | [place] [address] | | | | | | [phone] | | | | | | | | +--------+ + + + + documented as of this encounter Visit Diagnoses Not on filedocumented in this encounter"
--- OUTSIDE RECORDS SUMMARY | ~2019-10-16 | XMS | Encounter Summary ---
Demographics + + + | Address | [address] | | | [place] [address] | + + + | Home Phone [...]
--- OUTSIDE RECORDS SUMMARY | ~2019-10-16 | XMS | Encounter Summary ---
Demographics + + + | Address | [address] | | | [place] [address] | + + + | Home Phone [...] Providers + +------+ + | Care Bag Loader Name | Role | Phone | [...] | unspecified | | | | [address] [facility] | [address] | chronicity (Primary | | | | [place] | [place] [address] | Dx) | | | | [address] | [phone] | | | | | [phone] | | | +--------+ + + + [...] | | | | | [place] [address] | | | | | | [phone] | | | | | | | | +--------+ + + + + | 12/20/ | Office | Audiology | Elisabet Munson MS | | | 2019 | Visit | | [facility] [address] | | | | | | [place] [address] [place] | | | | | | [place] [address] | | | | | | [phone] | | | | | | | | +--------+ + + + + | 12/20/ | Office | Otolaryngology | Ulysses Genao MD | | | 2020 | Visit | | [address] [place] | | | | | | [address] [place], | | | | | | [place] [address] | | | | | | [phone] | | | | | | | [...]
--- OUTSIDE RECORDS SUMMARY | ~2019-10-16 | XMS | Encounter Summary ---
Demographics + + + | Address | [address] | | | [place] [address] | + + + | Home Phone [...] Providers + +------+ + | Care Bar Gauger And Lubricator Tender Name | Role | Phone | + +------+ + | Sulaiman Carrera MD | PCP | | + +------+ + Encounter Details +--------+ + + + + | Date | Type | Department | Care Team | Description | +--------+ + + + + | 03/19/ | Ancillary | Registration [id number] | | | | 2004 | Registratio | [facility] | | | | | n | Peterson Mailcode: RPB07 | | | | | | [place], [place] | | | | | | [address] | | | | | | [phone] | | | +--------+ + + + [...]
--- OUTSIDE RECORDS SUMMARY | ~2019-10-16 | XMS | Encounter Summary ---
Demographics + + + | Address | [address] | | | [place] [address] | + + + | Home Phone [...] + +------+ + | Care High School Math Tutor Name | Role | Phone | [...] Arm) | | 2017 | | MEDICINE [address] [place] [address] | MD Petrona | | | | | [facility] | [address] [place] [address] | | | | | [place] [address] | [place] [address] | | | | | [phone] | [phone] | | | | | | | [...] | | | | | [place] [address] | | | | | | [phone] | | | | | | | | +--------+ + + + + | 12/20/ | Office | Audiology | Jeimy CeasarMS rafa | | | 2019 | Visit | | [facility] [address] | | | | | | [address] [place] | | | | | | [place], [place] [address] | | | | | | [phone] | | | | | | | | +--------+ + + + + | 12/20/ | Office | Otolaryngology | Ulysses Genao MD | | | 2019 | Visit | | [address] | | | | | | [address] [place], | | | | | | [place] [address] | | | | | | [phone] | | | | | | | | +--------+ + + + + documented as of this encounter Visit Diagnoses Not on filedocumented in this encounter"
--- OUTSIDE RECORDS SUMMARY | ~2019-10-16 | XMS | Encounter Summary ---
Demographics + + + | Address | [address] | | | [place] [address] | + + + | Home Phone [...] Providers + +------+ + | Care Day Camp Unit Leader Name | Role | Phone | [...] as of this encounter Progress Notes Interface, Lighting Engineer In - 12/07/2005 3:08 AM [facility] [place] [address] [place], [place] [address] or January 31, 2003 Pedrito Gutierrez M.D. [address] [place] [address] RE: BELINDA MEEHAN MR #: [id number] Dear Dr. Gutierrez: I had the pleasure [...] She had surgery 5 days ago in [place] on her right hand and wrist, for [...] time to help minimize her travel to [place]. In the meantime, please feel free to contact me if you have other questions, concerns, or suggestions regarding her condition. Sincerely, Issac Meeks M.D. carpenter ship Division of Endocrinology, Diabetes, and Clinical Nutrition, Director of Metabolic Disorders Clinic MONIQUE / SHARIF [id number] / [id number] / [id number] / Tdocumented in this encounter Plan of Treatment Not on filedocumented as of this encounter Visit Diagnoses Not on filedocumented in this encounter"
--- OUTSIDE RECORDS SUMMARY | ~2019-10-16 | XMS | Encounter Summary ---
Demographics + + + | Address | [address] | | | [place] [address] | + + + | Home Phone [...] Providers + +------+ + | Care Bag Tester Name | Role | Phone | [...] + + | 06/04/ | Telephone | [facility] | Alanis, | Medication Problem | | 2016 | | MEDICINE [address] [place] [address] | MD Petrona | | | | | [facility] | [address] [place] [address] | | | | | [place] [address] | [place] [address] | | | | | [phone] | [phone] | | | | | | | [...] | | | | | [address] [facility] | | | | | | [place] [address] | | | | | | [phone] | | | | | | | | +--------+ + + + + | 12/20/ | Office | Audiology | Elisabet Munson MS | | | 2019 | Visit | | [facility] [address] | | | | | | [address] [place] | | | | | | [place] [address] | | | | | | [phone] | | | | | | | | +--------+ + + + + | 12/20/ | Office | Otolaryngology | Ulysses Genao MD | | | 2019 | Visit | | [address] | | | | | | [address] [place], | | | | | | [place] [address] | | | | | | [phone] | | | | | | | | +--------+ + + + + documented as of this encounter Visit Diagnoses Not on filedocumented in this encounter"
--- OUTSIDE RECORDS SUMMARY | ~2019-10-16 | XMS | Encounter Summary ---
Demographics + + + | Address | [address] | | | [place] [address] | + + + | Home Phone [...] Providers + +------+ + | Care Yard Manager Name | Role | Phone | + +------+ + PCP | Unavailable | + +------+ + Encounter Details +--------+ + + + + | Date | Type | Department | Care Team | Description | +--------+ + + + + | 09/14/ | Hospital | [facility] | Ruben Tobias | | | 2001 | Encounter | MED CTR SLEEP | MD Raji [address] | | | | | [place] [address] | [place] [facility] | | | | | [place], [place] | [place] [address] | | | | | [address] | [phone] | | | | | [phone] | | | +--------+ + + + [...] | | | | | [place] [address] | | | | | | [phone] | | | | | | | | +--------+ + + + + | 12/20/ | Office | Audiology | Elisabet Munson MS | | | 2019 | Visit | | [facility] | | | | | | [place] [address] [place] | | | | | | [place] [address] | | | | | | [phone] | | | | | | | | +--------+ + + + + | 12/20/ | Office | Otolaryngology | Ulysses Genao MD | | | 2020 | Visit | | [address] [facility] | | | | | | [address] [place], | | | | | | [place] [address] | | | | | | [phone] | | | | | | | | +--------+ + + + + documented as of this encounter Visit Diagnoses Not on filedocumented in this encounter"
--- OUTSIDE RECORDS SUMMARY | ~2019-10-16 | XMS | Encounter Summary ---
Demographics + + + | Address | [address] | | | [place] [address] | + + + | Home Phone [...] Providers + +------+ + | Care Medical Scientific Officer Name | Role | Phone | + +------+ + | Petrona Thapa | PCP | | | MD | | | + +------+ + Encounter Details +--------+ + + + + | Date | Type | Department | Care Team | Description | +--------+ + + + + | 05/04/ | [facility] | [facility] | Alanis, | Left hip pain | | 2017 | Encounter | MED CTR [facility] XRAY | MD Petrona | | | | | [address] [place] | [address] [facility] | | | | | [place], [place] | [place] [address] | | | | | [address] | [phone] | | | | | [phone] | | | +--------+ + + + [...] ordered, please prin t [facility] signed by Petrona Thapa MD at [address] [...] | | | | | [place] [address] | | | | | | [phone] | | | | | | | | +--------+ + + + + | 12/20/ | Office | Audiology | Elisabet Munson MS | | | 2019 | Visit | | [facility] [address] | | | | | | [address] [place] | | | | | | [place] [address] | | | | | | [phone] | | | | | | | | +--------+ + + + + | 12/20/ | Office | Otolaryngology | Ulysses Genao MD | | | 2019 | Visit | | [address] | | | | | | [address] [place], | | | | | | [place] [address] | | | | | | [phone] | | | | | | | [...] + + | Performing | Address | City/State/[facility] | Phone Number | [...]
--- OUTSIDE RECORDS SUMMARY | ~2019-10-16 | XMS | Encounter Summary ---
Demographics + + + | Address | [address] | | | [place] [address] | + + + | Home Phone [...] Providers + +------+ + | Care Electric Blasting Cap Assembler Name | Role | Phone | [...] | | sciatica | [address] | [place] [address] | | | | | Generalized | [place], | Phone: | | | | | osteoarthrit | [place] | [phone] | | | | | is | [address] | Fax: | | | | | | Phone: | [phone] | | | | | | [phone] | | | | | | | Fax: | | | | | | | [phone] | | +--------+ + + + + [...] Problem | | 2016 | | MEDICINE [address] [place] [address] | MD Petrona | | | | | [facility] | [address] [place] [address] | | | | | [place] [address] | [place] [address] | | | | | [phone] | [phone] | | | | | | | [...] | | | | | [place] [address] | | | | | | [phone] | | | | | | | | +--------+ + + + + | 12/20/ | Office | Audiology | Elisabet Munson MS | | | 2019 | Visit | | [facility] [address] | | | | | | [address] [place] | | | | | | [place] [address] | | | | | | [phone] | | | | | | | | +--------+ + + + + | 12/20/ | Office | Otolaryngology | Ulysses Genao MD | | | 2019 | Visit | | [address] | | | | | | [address] [place], | | | | | | [place] [address] | | | | | | [phone] | | | | | | | [...]
--- OUTSIDE RECORDS SUMMARY | ~2019-10-16 | XMS | Encounter Summary ---
Demographics + + + | Address | [address] | | | [place] [address] | + + + | Home Phone [...] Team Providers + +------+ + | Care Tubing Oiler Name | Role | Phone | [...] | | 2005 | | Center at [facility] [address] | | endoscopy procedure | | | | [address] | | | | | | Mailcode: [place] | | | | | | [facility] and | | | | | | [place] [address] | | | | | | [place], [place] | | | | | | [address] | | | | | | [phone] | | | +--------+ + + + [...] en doscopy in the [facility] at [facility], see transcri bed report. Earnest Ward documented in this encount er Plan of Treatment + + +--------+ + + | Name | Type | Priori | Associated Diagnoses | Order Schedule | | | | ty | | | + + +--------+ + + | AL GI TRACT IMAGING, | Procedures | Routin [...]
--- OUTSIDE RECORDS SUMMARY | ~2019-10-16 | XMS | Encounter Summary ---
Demographics + + + | Address | [address] | | | [place] [address] | + + + | Home Phone [...] Team Providers + +------+ + | Care Oven Laborer Name | Role | Phone | [...] + + | 06/25/ | Telephone | [facility] | Alanis, | Illness | | 2018 | | MEDICINE [address] [place] [address] | MD Petrona | | | | | [facility] | [address] [place] [address] | | | | | [place] [address] | [place] [address] | | | | | [phone] | [phone] | | | | | | | [...] | | | | | [place] [address] | | | | | | [phone] | | | | | | | | +--------+ + + + + | 12/20/ | Office | Audiology | Elisabet Munson MS | | 2019 | Visit | | [facility] [address] | | | | | | [address] [place] | | | | | | [place] [address] | | | | | | [phone] | | | | | | | | +--------+ + + + + | 12/20/ | Office | Otolaryngology | Ulysses Genao MD | | | 2020 | Visit | | [address] | | | | | | [address] [place], | | | | | | [place] [address] | | | | | | [phone] | | | | | | | | +--------+ + + + + documented as of this encounter Visit Diagnoses Not on filedocumented in this encounter"
--- OUTSIDE RECORDS SUMMARY | ~2019-10-16 | XMS | Encounter Summary ---
Demographics + + + | Address | [address] | | | [place] [address] | + + + | Home Phone [...] Providers + +------+ + | Care Timber Repairer Name | Role | Phone | [...] + + | 03/21/ | Office | [facility] | Emmy-Kamlesh, | Migraine without | | 2019 | Visit | MEDICINE [address] | MD Petrona | aura and without | | | | Street [facility] | [address] [place] [address] | status migrainosus, | | | | [place] [address] | [place] [address] | not intractable | | | | [phone] | [phone] | (Primary Dx); | | | | [...] She is working with an orthopedist in [facility], and she anticipates that she will hav [...] Common migraine COPD (chronic obstructive pulmonary disease) ([facility]) Depression Diarrhea Dumping syndrome Fall [...] apnea Spondylosis with myelopathy, lumbar region Stroke ([facility]) Syncope Tremor Type II or [...] Allergen Reactions Ensure Diarrhea Food Diarrhea Lactose Ikvgumksud-Hyw-Osqf-Codeine Other (See Comments) Balance problems Codeine Sulfate Nausea Only Food Allergy Formula Diarrhea Ensure Levofloxacin Hives, Itching and Rash Butalbital Ropinirole Amitriptyline Hcl Other (See Comments) Confused and questionable for seizures Cfvbyzfygb-Ccsw-Itxdwbpi Rash duplicate Bjlytjfvnq-Knkh-Wekhguoc Hives and Rash Cephalexin Hives Ciprofloxacin Hives [...] 1. Parts of this documentwere created using [employer] speech recognition software. As a resu lt, there may be unintended word spelling errors. Every attempt was made to correct the di ctation. documente d in this encounter Plan of Treatment +--------+ + + + + | Date | Type | Specialty | Care Team | Description | +--------+ + + + + | 10/16/ | Clinical | Internal Medicine | | | 2019 | Support | | | | +--------+ + + + + | 11/14/ | Office | Internal Medicine | Alanis, | | | 2019 | Visit | | MD Petrona | | | | | | [address] [facility] | | | | | | [place] [address] | | | | | | [phone] | | | | | | | | +--------+ + + + + | 12/20/ | Office | Audiology | Elisabet Munson MS | | | 2019 | Visit | | CCC-A [address] | | | | | [address] [place] | | | | | | [place] [address] | | | | | | [phone] | | | | | | | | +--------+ + + + + | 12/20/ | Office | Otolaryngology | Ulysses Genao MD | | | 2019 | Visit | | [address] | | | | | | [address] [place], | | | | | | [place] [address] | | | | | | [phone] | | | | | | | [...] | | First dose on [facility] 10/15/17 at 1215 | | | [...]
--- OUTSIDE RECORDS SUMMARY | ~2019-10-16 | XMS | Encounter Summary ---
Demographics + + + | Address | [address] | | | [place] [address] | + + + | Home Phone [...] Providers + +------+ + | Care Flat Lock Operator Name | Role | Phone | [...] | Osteopenia | MD Beto | Density [facility] | | | | | Procedures | [address] | [address] | | | | | CONSULT TO | Ave | Naeem Mcrae | | | | | BONE | [place], [place] | Rd Mailcode: | | | | | DENSITOMETRY | [address] | [place] Edu[place] | | | | | | Phone: | [address] | | | | | | [phone] | [place], [place] | | | | | | Fax: | [address] | | | | | | [phone] | Phone: | | | | | | | [phone] | | | | | | | Fax: | | | | | | | [phone] | +--------+--------+ + + + + Encounter Details +--------+ + + + + | Date | Type | Department | Care Team | Description | +--------+ + + + + | 07/24/ | Hospital | Endocrinology, | Sjh, Bmd Dexa | | | 2008 | Encounter | Diabetes and | [address] | | | | | Clinical Nutrition | [facility], | | | | | [address] | [place] [address] | | | | | [facility] Mailcode: | | | | | | [address] | | | | | | [place], [place] | | | | | | [address] | | | | | | [phone] | | | +--------+ + + + [...] documented as of this encounter Progress Notes Angeilca Roberts - 07/24/2008 12:00 AM PSTBone density [...] from the Results section by P Byron [[id number]] on | | | 04/17/2009 at 5:16 PM (File: [id number]) | | + + + BONE DENSITOMETRY [...]
--- OUTSIDE RECORDS SUMMARY | ~2019-10-16 | XMS | Encounter Summary ---
Demographics + + + | Address | [address] | | | [place] [address] | + + + | Home Phone [...] Providers + +------+ + | Care Dairy Lab Technician Name | Role | Phone [...] | Diagnoses | Rileyacle, | Fili Pt Ship Superintendent | | | | Therapy | Muscle | NIHARIKA Jean | Chh1 [address] | | | | | strain Neck | [address] | | | | | pain | [address] | Mailcode: | | | | | Fibromyalgia | [place], [place] | [facility] | | | | | Radicular | [address] | for Health | | | | | pain in left | | and Healing, | | | | | arm | | Building [address] | | | | | Procedures | | [place], [place] | | | | | PHYSICAL | | [address] | | | | | THERAPY | | Phone: | | | | | REFERRAL | | [phone] | +--------+--------+ + + + + Reason for Visit + + + | Reason | Comments | + + + | LBP - Low back pain | | + + + Encounter Details +--------+---------+ + + + | Date | Type | Department | Care Team | Description | +--------+---------+ + + + | 08/22/ | Office | IAWANG Basilio | Delfina Lambert, | Muscle Strain hips; | | 2008 | Visit | Pain Center at | ANP | Fibromyalgia; Neck | | | | [facility] | | Pain; Radicular Pain | | | | [address] | | in Left Arm; | | | | Mailcode: CH15P | | Dizziness; Black | | | | [place] [facility] | | Out; Falling | | | | and Healing, | |Falling | | | | Building | | | | | | Floor [place], [place] | | | | | | [address] | | | | | | [phone] | | | +--------+---------+ + + + [...] visit Schedule MRI of the neck at [facility] Use your TENS for the muscle pain Schedule follow up after the MRI to review results documented in this encounter Progress Notes Delfina Lambert ANP - 08/22/2008 10:22 AM PDTFormatting of this note might be different fr om the original. 08/22/2008 Belinda Meehan is a 48 y.o. female [facility] Comprehensive Pain Center Return [...] drawing has be completed, which I reviewed. [facility] Brief Pain Inventory: (ten= worst [...] appointment to see lumbar spine surgery in [place] on . Psychiatric History: depressed mood, sleep [...] 278 01/18 Paniculectomy Hx lumbar fusion 05/2008 [id number] with bone spur removals Family History Problem [...] to get the MRI results befor planning [facility] care. Belinda was compliant with all [...] [facility] Mail code CH 4P [facility] and [address] [address] Ailyn Foster Malissa - 03/2009 [...]
--- OUTSIDE RECORDS SUMMARY | ~2019-10-16 | XMS | Encounter Summary ---
Demographics + + + | Address | [address] | | | [place] [address] | + + + | Home Phone [...] Team Providers + +------+ + | Care Lard Bleacher Name | Role | Phone | + +------+ + | Sulaiman Carrera MD | PCP | | + +------+ + Encounter Details +--------+ + + + + | Date | Type | Department | Care Team | Description | +--------+ + + + + | 07/24/ | Ancillary | Registration [address] | [place], | | | 2006 | Registratio | [facility] | MD Lukasz [address] | | | [address] | [address] Mailcode: RPB07 | [place], | | | | | [place], [place] | [place] [address] | | | | | [address] | [phone] | | | | | [phone] | | | +--------+ + + + [...] | | | | | performed at [place] | | | | | | [facility] | | | | | | Laboratory | | | | + + + + + + + + | Specimen | + + | | + + + + + + + | Performing | Address | City/State/Zipcode | Phone Number | | Organization | | | | + + + + + | [facility] | [address] | [place] [address] | | | LABORATORY | | | [facility] DE[facility] | [address] | [place] [address] | | | PATHOLOGY | [address] | | | + + + + + | [facility] DEPARTMENT OF | [address] | [place] [address] | | | PATHOLOGY | [address] [...] DEPARTMENT OF | [address] | [place] [address] | | | PATHOLOGY | [address] | | | + + + + + | [facility] DEPARTMENT OF | [address] [facility] | [place] [address] | | | PATHOLOGY | [address] [...] | [address] | [place] [address] | | | PATHOLOGY | [address] | | | + + + + + | [facility] DEPARTMENT OF | [address] | [place] [address] | | | PATHOLOGY | [address] | | | + + + + + PROTHROMBIN TIME (07/24/2005 5:03 PM PST) + + + + + + | Component | Value | Ref Range | Performed | Pathologist | | | | | At | Signature | + + + + + + | INR | 0.97Comment: | 0.90 - 1.20 INR | [facility] | | | | PT INR [...] + + + + + | [facility] | [address] | [place] [address] | | | PATHOLOGY | [address] | | | + + + + + | [facility] DEPARTMENT OF | [address] | [place] [address] | | | PATHOLOGY | [address] [...] + + + + + | [facility] | [address] | [place] [address] | | | PATHOLOGY | [address] | | | + + + + + | [facility] | [address] | [place] [address] | | | PATHOLOGY | [address] | | | + + + + + documented in this encounter Visit Diagnoses Not on filedocumented in this encounter"
--- OUTSIDE RECORDS SUMMARY | ~2019-10-16 | XMS | Encounter Summary ---
Demographics + + + | Address | [address] | | | [place] [address] | + + + | Home Phone [...] Team Providers + +------+ + | Care Specimen Collector Name | Role | Phone | [...]
--- OUTSIDE RECORDS SUMMARY | ~2019-10-16 | XMS | Encounter Summary ---
Demographics + + + | Address | [address] | | | [place] [address] | + + + | Home Phone [...] Providers + +------+ + | Care Restaurant Kitchen And Service Manager Name | Role | Phone [...] | | | Mailcode: PV240 | [place] [address] | | | | | [facility] | [phone] | | | | | [place], [place] | | | | | | [address] | | | | | | [phone] | | | +--------+ + + + [...]
--- OUTSIDE RECORDS SUMMARY | ~2019-10-16 | XMS | Encounter Summary ---
Demographics + + + | Address | [address] | | | [place] [address] | + + + | Home Phone [...] Providers + +------+ + | Care Board Stacker Name | Role | Phone | + [...] + | 06/16/ | Clinical | [facility] | Alanis, | B12 deficiency | | 2020 | Support | MEDICINE [address] [place] [address] | MD Petrona | (Primary Dx) | | | | [facility] | [address] [place] [address] | | | | | [place] [address] | [place] [address] | | | | | [phone] | [phone] | | | | | | | [...] of this encounter Progress Notes Shanta Whaley Ct Scan Tech - 06/16/2019 10:30 AM PSTFormatting of this note calderon ht be different from the original. Administrations This Visit cyanocobalamin (VITAMIN B-12) injection 1,000 mcg Admin Date 06/16/2019 Action Given Dose 1000 mcg Route Intramuscular Administered By Shanta Whaley Ct Scan Tech Patient tolerated injection well, advised to schedule [...] | | | | | [place] [address] | | | | | | [phone] | | | | | | | | +--------+ + + + + | 12/20/ | Office | Audiology | Elisabet Munson MS | | | 2019 | Visit | | [facility] [address] | | | | | [address] [place] | | | | | | [place], [place] [address] | | | | | | [phone] | | | | | | | | +--------+ + + + + | 12/20/ | Office | Otolaryngology | Ulysses Genao MD | | | 2019 | Visit | | [address] | | | | | | [address] [place], | | | | | | [place] [address] | | | | | | [phone] | | | | | | | [...]
--- OUTSIDE RECORDS SUMMARY | ~2019-10-16 | XMS | Encounter Summary ---
Demographics + + + | Address | [address] | | | [place] [address] | + + + | Home Phone [...] Team Providers + +------+ + | Care Tie Tape Machine Operator Name | Role | Phone [...] | | | Metabolism | bypass | [address] | [address] | | | | | Hypovitamino | [address], | Ave | | | | | sis D B12 | [address] | [place], [place] | | | | | nutritional | [place], [place] | [address] | | | | | deficiency | [address] | Phone: | | | | | Other | Phone: | [phone] | | | | | protein-jose manuel | [phone] | Fax: | | | | | nick | Fax: | [phone] | | | | | malnutrition | [phone] | | | | | | Weight | | | | | | | gain | | | | | | | Procedures | | | | | | | CONSULT TO | | | | | | | ENDO | | | | | | | [address] | | | | | | | [address] | | | +--------+--------+ + + + [...] | | | [facility] | [place], [place] | Metabolic syndrome X | | | | Pavilion [address] | [address] | 250.80; Essential | | | | [address] | [phone] | hypertension 401.9; | | | | [facility] | | IGT (impaired | | | | Physician's | | glucose tolerance) | | | | Pavilion [place], | | | | | | [place] [address] | | | | | | [phone] | | | +--------+---------+ + + + [...] in the pain center her at [facility], so she is hoping to find an [...] Hives Mainly in the legs Clindamycin Codeine Fickakj-Pzewovgaaa-Hxb-Caff Balance problems Fioricet W/Codeine (Erhwjrzccu-Gftzxumiya-Ewl-Cod) Keflex (Cephalexin) Morphine IM ( only in [facility]) made gut pain worse 08/27/06: Trial of [...] U/L 41 ANION GAP 8 VITAMIN B12, [id number] pg/ml >2000 (H) HEMOGLOBIN A1C <=5.6 % [...] SERUM 15.0-85.0 pg/ml 222.9 (H) VITAMIN B12, [id number] pg/ml > 2000 HEMOGLOBIN A1C <=5.6 % [...]
--- OUTSIDE RECORDS SUMMARY | ~2019-10-16 | XMS | Encounter Summary ---
Demographics + + + | Address | [address] | | | [place] [address] | + + + | Home Phone [...] + +------+ + | Care Workers Compensation Analyst Name | Role | Phone | [...] + | 06/25/ | Refill | [facility] | Alanis, | Medication Refill | | 2018 | | MEDICINE [address] [place] [address] | MD Petrona | | | | | [facility] | [address] [place] [address] | | | | | [place] [address] | [place] [address] | | | | | [phone] | [phone] | | | | | | | [...] | | | | | [place] [address] | | | | | | [phone] | | | | | | | | +--------+ + + + + | 12/20/ | Office | Audiology | Elisabet Munson | | | 2019 | Visit | | [facility] [address] | | | | | [address] [place] | | | | | | [place] [address] | | | | | | [phone] | | | | | | | | +--------+ + + + + | 12/20/ | Office | Otolaryngology | Ulysses Genao MD | | | 2019 | Visit | | [address] | | | | | | [address] [place], | | | | | | [place] [address] | | | | | | [phone] | | | | | | | | +--------+ + + + + documented as of this encounter Visit Diagnoses + + | Diagnosis | + + | Nausea - Primary Nausea alone | + + documented in this encounter"
--- OUTSIDE RECORDS SUMMARY | ~2019-10-16 | XMS | Encounter Summary ---
Demographics + + + | Address | [address] | | | [place] [address] | + + + | Home Phone [...] Providers + +------+ + | Care Inbound Customer Service Agent Name | Role | Phone [...] + + | 09/15/ | Office | [facility] | Emmy-Tajti, | Pain in right lower | | 2019 | Visit | MEDICINE [address] | MD Petrona | leg (Primary Dx); | | | | [address] [place] | [address] [facility] | Fall in bathtub, | | | | [place] [address] | [place] [address] | initial encounter; | | | | [phone] | [phone] | Other osteoporosis | | | | [...] (See Comments) Confused and questionable for seizures Esducflmzu-Kpsp-Bfkrvkrv Hives and Rash Cephalexin Hives Ciprofloxacin Hives [...] Note: Parts of this documentwere created using [employer] speech recognition software. As a r esult, [...] | | | | | [place] [address] | | | | | | [phone] | | | | | | | | +--------+ + + + + | 12/20/ | Office | Audiology | Elisabet Munson MS | | | 2019 | Visit | | [facility] [address] | | | | | [address] [place] | | | | | | [place] [address] | | | | | | [phone] | | | | | | | | +--------+ + + + + | 12/20/ | Office | Otolaryngology | Ulysses Genao MD | | | 2019 | Visit | | [address] | | | | | | [address] [place], | | | | | | [place] [address] | | | | | | [phone] | | | | | | | [...]
--- OUTSIDE RECORDS SUMMARY | ~2019-10-16 | XMS | Encounter Summary ---
Demographics + + + | Address | [address] | | | [place] [address] | + + + | Home Phone [...] Providers + +------+ + | Care Front Line Supervisor Name | Role | Phone [...] 08/26/ | Office | [facility] Center at 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 Overall she has made some good changes. [...] natalie ing an effort to improve. Diagnosis: [place] I: 1. (296.32) Major depressive disorder, recurrent, moderate. 2. (309.24) Adjustment disorder with anxiety. 3. 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 [place] II: Deferred [place] III: abdominal pain, migraine headache, low back pain. [place] IV: low finances [place] V: GAF 50 Plan: Return in 2 weeks. Check pacing, relaxation, activity, distraction. Check managing Pain.. . book. Continue cognitive/behavioral therapy. Total time spent with patient was approximately 45 minutes. LUKASZ CHARLES PHD [facility] [address] [place] [address] And [facility] [address] [place] [address] documented in this encount er Plan of [...] | | | | | | ([facility]) Spondylosis | | | | | | [...] depressive disorder, recurrent episode, moderate ([facility]) Major depressive | | disorder, recurrent episode, [...]
--- OUTSIDE RECORDS SUMMARY | ~2019-10-16 | XMS | Encounter Summary ---
Demographics + + + | Address | [address] | | | [place] [address] | + + + | Home Phone [...] + +------+ + | Care Social Media Developer Name | Role | Phone | + +------+ + | Petrona Thapa | PCP | | | MD | | | + +------+ + Encounter Details +--------+ + + + + | Date | Type | Department | Care Team | Description | +--------+ + + + + | 10/04/ | Documentati | [facility] | Alanis, | | | 2019 | on | MEDICINE [address] | MD Petrona | | | | | [address] [place] | [address] [facility] | | | | | [place] [address] | [place] [address] | | | | | [phone] | [phone] | | | | | | | [...] | | | | | [place] [address] | | | | | | [phone] | | | | | | | | +--------+ + + + + | 12/20/ | Office | Audiology | Elisabet Munson MS | | | 2019 | Visit | | [facility] [address] | | | | | | [place] [address] [place] | | | | | | [place] [address] | | | | | | [phone] | | | | | | | | +--------+ + + + + | 12/20/ | Office | Otolaryngology | Ulysses Genao MD | | | 2020 | Visit | | [address] | | | | | | [address] [place], | | | | | | [place] [address] | | | | | | [phone] | | | | | | | | +--------+ + + + + documented as of this encounter Visit Diagnoses Not on filedocumented in this encounter"
--- OUTSIDE RECORDS SUMMARY | ~2019-10-16 | XMS | Encounter Summary ---
Demographics + + + | Address | [address] | | | [place] [address] | + + + | Home Phone [...] Providers + +------+ + | Care Cotton Opener Name | Role | Phone | [...] | Visit | [facility] [address] | ETL BI DEVELOPER | Disc Disease; | | | | [address] | | Fibromyalgia | | | | Physician's | | | | | | Pavilion, 4th Floor | | | | | | [place], [place] | | | | | | [address] | | | | | | [phone] | | | +--------+---------+ + + + [...] the LBP is gone. Dr. Ricky smith Igo was her surgeon. She think s a [...] 300 mg) by oral route once daily dcvabefxdp-seupxhqtechls-xscftowl (FIORICET) 50-325-40 mg Oral Tablet take 2 [...] + + +--------+ + + | AL INJECT TRIGGER | Procedures | Routin | [...]
--- OUTSIDE RECORDS SUMMARY | ~2019-10-16 | XMS | Encounter Summary ---
Demographics + + + | Address | [address] | | | [place] [address] | + + + | Home Phone [...] Team Providers + +------+ + | Care Skip Miner Blasting Name | Role | Phone [...] | | 2006 | | [facility] at [employer] | MD Darrion,PhD [address] | | | | | for Health and | [address] | | | | | Healing [address] | [place], [place] | | | | | Bethanie Mailcode: | [address] | | | | | [facility] | [phone] | | | | | Health and Healing, | | | | | | [facility] | | | | | | Floor [place], [place] | | | | | | [address] | | | | | | [phone] | | | +--------+ + + + [...]
--- OUTSIDE RECORDS SUMMARY | ~2019-10-16 | XMS | Encounter Summary ---
Demographics + + + | Address | [address] | | | [place] [address] | + + + | Home Phone [...] Providers + +------+ + | Care Office Executive Name | Role | Phone | [...] | | | | Clinical Nutrition | [place], [place] | | | | | [address] | [address] | | | | | Loop Mailcode: OPC5 | [phone] | | | | | Outpatient Clinic | | | | | | [facility] | | | | | | [place] [address] | | | | | | [phone] | | | +--------+ + + + [...] [facility] | [address] | [place], [place] | | | UN[facility] P[facility] - INT[facility] | | [address] | | + + + + + [...] | + + + + + | [facility] | [address] | [place] [address] | | | LABORATORY | | | [...] DEPARTMENT OF | [address] | [place] [address] | | | PATHOLOGY | [address] | | | + + + + + | [facility] DEPARTMENT OF | [address] | [place] [address] | | | PATHOLOGY | [address] | | | + + + + + LIPASE (01/11/2002 3:50 PM PDT) + +--------+ + + + | Component | Value | Ref Range | Performed | Pathologist | | | | | At | Signature | + +--------+ + + + | LIPASE | 21 (L) | 22 - 51 U/L | [facility] | | | (LAB) | | [...] | [facility] | [address] [facility] | [place] [address] | | | PATHOLOGY | [address] | | | + + + + + | [facility] | [address] [facility] | [place] [address] | | | PATHOLOGY | [address] [...] DEPARTMENT OF | [address] | [place] [address] | | | PATHOLOGY | [address] | | | + + + + + | [facility] DEPARTMENT | [address] | [place] [address] | | | PATHOLOGY | [address] [...] [facility] | [address] | [place] [address] | | | PATHOLOGY | [address] | | | + + + + + | [facility] | [address] | [place] [address] | | | PATHOLOGY | [address] | | | + + + + + documented in this encounter Visit Diagnoses Not on filedocumented in this encounter"
--- OUTSIDE RECORDS SUMMARY | ~2019-10-16 | XMS | Encounter Summary ---
Demographics + + + | Address | [address] | | | [place] [address] | + + + | Home Phone [...] Providers + +------+ + | Care Newspaper Deliverer Name | Role | Phone | [...] Rd | | | | | | [place], [place] | | | | | | [address] | | | +--------+ + + + [...]
--- OUTSIDE RECORDS SUMMARY | ~2019-10-16 | XMS | Encounter Summary ---
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 female [facility] Comprehensive [...] facia pain working with exercises and her customer service agent. Belinda Meehan is here today for [...] until surgery pending 02/13 12/19. DELFINA MOLINA [facility] Comprehensive Pain Center Mail code CH 4P [place] [facility] and [address] [address] Ailyn Foster - 01/12/20 07 [...]
--- OUTSIDE RECORDS SUMMARY | ~2019-10-16 | XMS | Encounter Summary ---
Demographics + + + | Address | [address] | | | [place] [address] | + + + | Home Phone [...] Providers + +------+ + | Care Bundle Sorter Name | Role | Phone | [...] + + | 05/03/ | Telephone | [facility] INTERNAL | Alanis, | Medication Prior | | 2017 | | MEDICINE [address] [place] [address] | MD Petrona | Authorization | | | | [facility] | [address] [place] [address] | (Sumatriptan) | | | | [place] [address] | [place] [address] | | | | | [phone] | [phone] | | | | | | | [...] | | [facility] [address] | | | | | | [place] [address] | | | | | | [phone] | | | | | | | | +--------+ + + + + | 12/20/ | Office | Audiology | Elisabet Munson MS | | | 2019 | Visit | | [facility] [address] | | | | [address] [place] | | | | | | [place] [address] | | | | | | [phone] | | | | | | | | +--------+ + + + + | 12/20/ | Office | Otolaryngology | Ulysses Genao MD | | 2019 | Visit | | [address] | | | | | | [address] [place], | | | | | | [place] [address] | | | | | | [phone] | | | | | | | | +--------+ + + + + documented as of this encounter Visit Diagnoses Not on filedocumented in this encounter"
--- OUTSIDE RECORDS SUMMARY | ~2019-10-16 | XMS | Encounter Summary ---
Demographics + + + | Address | [address] | | | [place] [address] | + + + | Home Phone [...] + | 01/12/ | Refill | [facility] INTER[facility] | Alanis, | Medication Refill | | 2017 | | MEDICINE [address] [place] [address] | MD Petrona | | | | | [facility] | [address] [place] [address] | | | | | [place] [address] | [place] [address] | | | | | [phone] | [phone] | | | | | | | [...] | | | | | [place] [address] | | | | | | [phone] | | | | | | | | +--------+ + + + + | 12/20/ | Office | Audiology | DarioElisabet ramires MS | | | 2019 | Visit | | [facility] [address] | | | | | [address] [place] | | | | | | [place], [place] [address] | | | | | | [phone] | | | | | | | | +--------+ + + + + | 12/20/ | Office | Otolaryngology | Ulysses Genao MD | | | 2019 | Visit | | [address] | | | | | | [address] [place], | | | | | | [place] [address] | | | | | | [phone] | | | | | | | | +--------+ + + + + documented as of this encounter Visit Diagnoses Not on filedocumented in this encounter"
--- OUTSIDE RECORDS SUMMARY | ~2019-10-16 | XMS | Encounter Summary ---
Demographics + + + | Address | [address] | | | [place] [address] | + + + | Home Phone [...] Team Providers + +------+ + | Care Disposition Clerk Name | Role | Phone | [...] + + | 06/29/ | Telephone | [facility] INTER[facility] | Alanis, | Illness | | 2018 | | MEDICINE [address] [place] [address] | MD Petrona | | | | | [facility] | [address] [place] [address] | | | | | [place] [address] | [place] [address] | | | | | [phone] | [phone] | | | | | | | [...] | | | | | [place] [address] | | | | | | [phone] | | | | | | | | +--------+ + + + + | 12/20/ | Office | Audiology | Elisabet Munson MS | | 2019 | Visit | | [facility] [address] | | | | | [address] [place] | | | | | | [place] [address] | | | | | | [phone] | | | | | | | | +--------+ + + + + | 12/20/ | Office | Otolaryngology | Ulysses Genao MD | | | 2020 | Visit | | [address] | | | | | | [address] [place], | | | | | | [place] [address] | | | | | | [phone] | | | | | | | | +--------+ + + + + documented as of this encounter Visit Diagnoses Not on filedocumented in this encounter"
--- OUTSIDE RECORDS SUMMARY | ~2019-10-16 | XMS | Encounter Summary ---
Demographics + + + | Address | [address] | | | [place] [address] | + + + | Home Phone [...] Providers + +------+ + | Care Clinical Psychiatrist Name | Role | Phone | + [...] of this encounter Progress Notes Interface, Operations Research Manager In - 01/12/2005 9:13 AM PDT [id number] GEOVANNI Barnes Clinic Date: 04/10/2004 Clinic: Rheumatology [...] with sitting and it is worse in spud driller and early evening. Her IGF-1 was low [...] 3 months. Caitlin Rivera M.S., F.N.P. / [id number] / [id number] / [id number] / cc: Pedrito Gutierrez M.D. [address] [facility] [place] [address] documented i n this encounter Plan of Treatment Not on filedocumented as of this encounter Visit Diagnoses Not on filedocumented in this encounter"
--- OUTSIDE RECORDS SUMMARY | ~2019-10-16 | XMS | Encounter Summary ---
Demographics + + + | Address | [address] | | | [place] [address] | + + + | Home Phone [...] Providers + +------+ + | Care Business Unit Manager Name | Role | Phone | [...] + + | 11/12/ | Telephone | [facility] INTER[facility] | Alanis, | Leg Swelling | | 2017 | | MEDICINE [address] [place] [address] | MD Petrona | | | | | [facility] | [address] [place] [address] | | | | | [place] [address] | [place] [address] | | | | | [phone] | [phone] | | | | | | | [...] | | | | | [address] | | | | | | [place] [address] | | | | | | [phone] | | | | | | | | +--------+ + + + + | 12/20/ | Office | Audiology | Elisabet Munson MS | | 2019 | Visit | | [facility] [address] | | | | [address] [place] | | | | | | [place] [address] | | | | | | [phone] | | | | | | | | +--------+ + + + + | 12/20/ | Office | Otolaryngology | Ulysses Genao MD | | | 2020 | Visit | | [address] | | | | | | [address] [place], | | | | | | [place] [address] | | | | | | [phone] | | | | | | | | +--------+ + + + + documented as of this encounter Visit Diagnoses Not on filedocumented in this encounter"
--- OUTSIDE RECORDS SUMMARY | ~2019-10-16 | XMS | Encounter Summary ---
Demographics + + + | Address | [address] | | | [place] [address] | + + + | Home Phone [...] Providers + +------+ + | Care Manager Urgent Care Name | Role | Phone | [...] + | 02/10/ | Refill | [facility] INTER[facility] | Alanis, | Medication Refill | | 2018 | | MEDICINE [address] [place] [address] | MD Petrona | | | | | [facility] | [address] [place] [address] | | | | | [place] [address] | [place] [address] | | | | | [phone] | [phone] | | | | | | | [...] | | | | | [place] [address] | | | | | | [phone] | | | | | | | | +--------+ + + + + | 12/20/ | Office | Audiology | Elisabet MunsonMS | | | 2019 | Visit | | [facility] [address] | | | | | [address] [place] | | | | | | [place] [address] | | | | | | [phone] | | | | | | | | +--------+ + + + + | 12/20/ | Office | Otolaryngology | Ulysses Genao MD | | | 2019 | Visit | | [address] | | | | | | [address] [place], | | | | | | [place] [address] | | | | | | [phone] | | | | | | | | +--------+ + + + + documented as of this encounter Visit Diagnoses + + | Diagnosis | + + | Nausea Nausea alone | + + documented in this encounter"
--- OUTSIDE RECORDS SUMMARY | ~2019-10-16 | XMS | Encounter Summary ---
Demographics + + + | Address | [address] | | | [place] [address] | + + + | Home Phone [...] Team Providers + +------+ + | Care Formulator Compounder Name | Role | Phone | + [...] + + | / | Office | [facility] Comprehensive | Delfina Molina, | LBP (Low Back Pain); | | 2007 | Visit | Pain Center at | ANP | Spondylosis with | | | | [facility] | | Myelopathy, Lumbar | | | | [address] | | Region; Herniated | | | | Mailcode: CH15P | | Lumbar | | | | [place] for [facility] | | Intervertebral Disc | | | | and Healing, | | L4-5; Fibromyalgia | | | | Building | | syndrome 729.1; | | | | Floor [place], [place] | | Bilateral Knee Pain; | | | | [address] | | Arthroplasty of the | | | | [phone] | | Left Knee; DJD | | [...] Belinda Meehan is a 47 y.o. female [facility] Comprehensive Pain Center Return [...] drawing has be completed, which I reviewed. GENERAL OFFICE ASSOCIATE Brief Pain Inventory: Right Now: 9 Least [...] Physical therapy: Two days per week in [place] knees and both legs, shoulders and back [...] social history. Pending 08/30/07 DR Cadet in [facility]: right knee arthroplasty. Urology evaluation for ur [...] Collection Time Resulting Agency 05/25/2007 4:06 PM [facility] DEPARTMENT OF RADIOLOGY Component Results [...] with any concerns or questions. DELFINA MOLINA [facility] Mail code CH 4P [facility] and [facility] [address] [facility] [address] Ailyn Bello 08/13/19 08 8:52 AM [...]
--- OUTSIDE RECORDS SUMMARY | ~2019-10-16 | XMS | Encounter Summary ---
Demographics + + + | Address | [address] | | | [place] [address] | + + + | Home Phone [...] + +------+ + | Care Supply Chain Business Analyst Name | Role | Phone [...] Lab findings, | | 2007 | | [place] [address] | [address] | teaching, guidance, | | | | Ave Mailcode: [facility] | [address] | and counseling (labs | | | | [facility] | [place], [place] | done on 07/01/07) | | | | and Healing, | [address] | | | | | [facility] [address] [facility] | [phone] | | | | | [place], [place] | | | | | | [address] | | | | | | [phone] | | | +--------+ + + + [...]
--- OUTSIDE RECORDS SUMMARY | ~2019-10-16 | XMS | Encounter Summary ---
Demographics + + + | Address | [address] | | | [place] [address] | + + + | Home Phone [...] Team Providers + +------+ + | Care Carpenter Maintenance Name | Role | Phone | [...] as of this encounter Progress Notes Interface, Bilingual Medical Receptionist In - 01/11/2005 6:26 PM PDTClinic Date: [...] bypass surgery. Dwaine Al M.D. LEDY / [id number] / [id number] / [id number] / Tdocumented in this encounter Plan of Treatment Not on filedocumented as of this encounter Visit Diagnoses Not on filedocumented in this encounter"
--- OUTSIDE RECORDS SUMMARY | ~2019-10-16 | XMS | Encounter Summary ---
Demographics + + + | Address | [address] | | | [place] [address] | + + + | Home Phone [...] Team Providers + +------+ + | Care Reporting Analyst Name | Role | Phone | [...] ANP | | | | | [facility] | | | | | | [address] | | | | | | Mailcode: CH15P | | | | | | [place] for [facility] | | | | | | and Healing, | | | | | | Building | | | | | | Floor [place], [place] | | | | | | [address] | | | | | | [phone] | | | +--------+ + + + [...]
--- OUTSIDE RECORDS SUMMARY | ~2019-10-16 | XMS | Encounter Summary ---
Demographics + + + | Address | [address] | | | [place] [address] | + + + | Home Phone [...] + +------+ + | Care Sales Development Consultant Name | Role | Phone [...] as of this encounter Progress Notes Interface, Colorist Formulator In - 04/07/2006 2:32 AM PDT [id number] GEOVANNI SKELTON [place] [id number] Clinic Date: 04/01/2006 Clinic: Rheumatology Belinda Meehan is here for a couple of trigger point injections. She comes from [place]. Tomorrow, she is due for an EGD [...] 4 months. Caitlin Rivera M.S., F.N.P. / [id number] / [id number] / [id number] / [id number] Electronically signed by Caitlin Rivera 04-06-2006 03:23:35 PM documented i n this encounter Plan of Treatment Not on filedocumented as of this encounter Visit Diagnoses Not on filedocumented in this encounter"
--- OUTSIDE RECORDS SUMMARY | ~2019-10-16 | XMS | Encounter Summary ---
Demographics + + + | Address | [address] | | | [place] [address] | + + + | Home Phone [...] Team Providers + +------+ + | Care Flower Cheniller Name | Role | Phone | + [...] + + | 01/08/ | Telephone | [facility] INTERNAL | Alanis, | Results, Imaging | | 2017 | | MEDICINE [address] | MD Petrona | | | | | [facility] | [address] [place] [address] | | | | | [place] [address] | [place] [address] | | | | | [phone] | [phone] | | | | | | | [...] | | | | | [place] [address] | | | | | | [phone] | | | | | | | | +--------+ + + + + | 12/20/ | Office | Audiology | Elisaebt Munson MS | | | 2019 | Visit | | [facility] [address] | | | [address] [place] | | | | | | [place], [place] [address] | | | | | | [phone] | | | | | | | | +--------+ + + + + | 12/20/ | Office | Otolaryngology | Ulysses Genao MD | | | 2019 | Visit | | [address] | | | | | | [address] [place], | | | | | | [place] [address] | | | | | | [phone] | | | | | | | | +--------+ + + + + documented as of this encounter Visit Diagnoses Not on filedocumented in this encounter"
--- OUTSIDE RECORDS SUMMARY | ~2019-10-16 | XMS | Encounter Summary ---
Demographics + + + | Address | [address] | | | [place] [address] | + + + | Home Phone [...] Providers + +------+ + | Care Tank Erector Name | Role | Phone | [...] Lab findings, | | 2007 | | [place] [address] | [address] | teaching, guidance, | | | | Ave Mailcode: CH4S | [address] | and counseling | | | | [facility] | [place], [place] | | | | | and Healing, | [address] | | | | | [facility] | [phone] | | | | | [place], [place] | | | | | | [address] | | | | | | [phone] | | | +--------+ + + + [...]
--- OUTSIDE RECORDS SUMMARY | ~2019-10-16 | XMS | Encounter Summary ---
Demographics + + + | Address | [address] | | | [place] [address] | + + + | Home Phone [...] Providers + +------+ + | Care Machine Maintenance Repairer Name | Role | Phone | [...] Status Post | | 2007 | | [place] [address] | [address] [facility] | Bariatric Surgery | | | | Ave Mailcode: CH4S | [address] | (Primary Dx) | | | | [facility] | [place], [place] | | | | | and Healing, | [address] | | | | | Building 1, 6th | [phone] | | | | | Floor [place], [place] | | | | | | [address] | | | | | | [phone] | | | +--------+ + + + [...] | | | | | ng/mLPerformed by [facility] | | | | | | [facility],[address] | | | | | | [place], [facility] [place] [address] | | | | | | [phone]. | | | | | | Sincere [...] [facility] | [address] | [place], [place] | | | UN[facility] | | [address] | | + + + + + [...] | + + + + + | [facility] | [address] | [place] [address] | | | LABORATORY | | | [...] RLB ([address] [facility]) | | | [facility] [place] [address] | | | [place] [address] | | + + + + + + + + | Performing | Address | City/State/Zipcode | Phone Number | | Organization | | | | + + + + + | [facility] | [address] | [place] [address] | | | LABORATORY | | | [...] RL ([address] [facility]) | | | [facility] [place] [address] [address] | | | [place] [address] | | + + + + + + + + | Performing | Address | City/State/Zipcode | Phone Number | | Organization | | | | + + + + + | [facility] | [address] | [place] [address] | | | LABORATORY | | | [...] Performed At | + + + | [address] Estimated GFR > 60 mL/min/1.73 sq m if non- | [facility] | | [address] Estimated GFR > 60 mL/min/1.73 sq m [...] DEPARTMENT OF | [address] | [place] [address] | | | PATHOLOGY | [address] | | | + + + + + | [place] DEPARTMENT | [address] | [place] [address] | | | PATHOLOGY | [address] [...] + + | [facility] | [address] | [place] [address] | | | PATHOLOGY | [address] | | | + + + + + | [facility] | [address] | [place] [address] | | | PATHOLOGY | [address] | | | + + + + + documented in this encounter Visit Diagnoses + + | Diagnosis | + + | Status post bariatric surgery - Primary Bariatric surgery status | + + documented in this encounter"
--- OUTSIDE RECORDS SUMMARY | ~2019-10-16 | XMS | Encounter Summary ---
Demographics + + + | Address | [address] | | | [place] [address] | + + + | Home Phone [...] Providers + +------+ + | Care Barge Engineer Name | Role | Phone | [...] as of this encounter Discharge Summaries Interface, Genetic Counsellor In - 01/12/2005 10:09 AM PDT [id number] GEOVANNI Barnes Admission Date: 12/06/2004 Discharge Date: [...] her incision looked clear, dry, and intact. Wales were in place. She had some moderate [...] Sree Carrillo M.D. Chris Padgett M.D. / [id number] / [id number] / [id number] / [id number] Electronically signed by Chris Padgett 12-31-2004 03:03:21 PM documented i n this encounter Plan of Treatment Not on filedocumented as of this encounter Visit Diagnoses Not on filedocumented in this encounter"
--- OUTSIDE RECORDS SUMMARY | ~2019-10-16 | XMS | Encounter Summary ---
Demographics + + + | Address | [address] | | | [place] [address] | + + + | Home Phone [...] Team Providers + +------+ + | Care Cork Mixer Name | Role | Phone | [...] Other (wondering | | 2008 | | [place] [address] | [address] | ablout colonoscopy) | | | | Ave Mailcode: CH4S | [facility] | | | | | [facility] | [place], [place] | | | | | and [place], | [address] | | | | | [facility] | [phone] | | | | | [place], [place] | | | | | | [address] | | | | | | [phone] | | | +--------+ + + + [...]
--- OUTSIDE RECORDS SUMMARY | ~2019-10-16 | XMS | Encounter Summary ---
Demographics + + + | Address | [address] | | | [place] [address] | + + + | Home Phone [...] Team Providers + +------+ + | Care Release Manager Name | Role | Phone | [...] | | Center at [facility] [address] | OIL DISPATCH[address] | | | | | [address] | , [address] | | | | | Mailcode: Center | [place], [place] | | | | | [facility] and | [address] | | | | | Healing, Building 2 | [phone] | | | | | [place], [place] | | | | | | [address] | | | | | | [phone] | | | +--------+ + + + [...]
--- OUTSIDE RECORDS SUMMARY | ~2019-10-16 | XMS | Encounter Summary ---
Demographics + + + | Address | [address] | | | [place] [address] | + + + | Home Phone [...] Providers + +------+ + | Care Wood Type Finisher Name | Role | Phone | + +------+ + | ePdrito Gutierrez MD | PCP | | + +------+ + Encounter Details +--------+ + + + + | Date | Type | Department | Care Team | Description | +--------+ + + + + | 08/04/ | Telephone | Digestive Health | Chris Padgett, | | | 2006 | | [place] [address] | [address] [facility] | | | | | [address] Mailcode: CH4S | [facility] | | | | | Center for Health | [place], [place] | | | | | and Healing, | [address] | | | | | Building | [phone] | | | | | Floor [place], [place] | | | | | | [address] | | | | | | [phone] | | | +--------+ + + + [...]
--- OUTSIDE RECORDS SUMMARY | ~2019-10-16 | XMS | Encounter Summary ---
Demographics + + + | Address | [address] | | | [place] [address] | + + + | Home Phone [...] Team Providers + +------+ + | Care Hobber Name | Role | Phone | + [...] | | | | Clinical Nutrition | [place], [place] | | | | | [address] | [address] | | | | | Loop Mailcode: OPC5 | [phone] | | | | | Outpatient Clinic | | | | | | [facility] | | | | | | [place] [address] | | | | | | [phone] | | | +--------+ + + + [...] | | | | | performed by [facility] | | | | | | Laboratories. | | | | + + + + + + + + | Specimen | + + | | + + + + + + + | Performing | Address | City/State/Zipcode | Phone Number | | Organization | | | | + + + + + | [facility] | [address] | [place], [place] | | | [facility] | | [address] | | + + + + + HEMOGLOBIN A1C (05/31/2002 3:21 PM PST) + + + + + + | Component | Value | Ref Range | Performed | Pathologist | | | | | At | Signature | + + + + + + | HEMOGLOBIN | 6.0Comment: Test | <7.1 % | | | | A1C | performed by [facility] | | | | | | Proctor [...] | + + + + + | [facility] | [address] | [place] [address] | | | LABORATORY | | | [...] [facility] DEPARTMENT OF | [address] | [place] [address] | | | PATHOLOGY | [address] | | | + + + + + | [facility] DEPARTMENT OF | [address] | [place] [address] | | | PATHOLOGY | [address] [...] | [facility] | [address] | [place] [address] | | | PATHOLOGY | [address] | | | + + + + + | [facility] | [address] [facility] | [place] [address] | | | PATHOLOGY | [address] | | | + + + + + documented in this encounter Visit Diagnoses Not on filedocumented in this encounter"
--- OUTSIDE RECORDS SUMMARY | ~2019-10-16 | XMS | Encounter Summary ---
Demographics + + + | Address | [address] | | | [place] [address] | + + + | Home Phone [...] Providers + +------+ + | Care Quality Rn Name | Role | Phone [...] [place] | | | | | | [address] | | | | | | [phone] | | | +--------+ + + + [...] | | | | | [place] [address] | | | | | | [phone] | | | | | | | | +--------+ + + + + | 12/20/ | Office | Audiology | Elisabet Munson MS | | 2019 | Visit | | [place]A MACK | | | | | | [facility] [address] | | | | | | [place] [address] | | | | | | [phone] | | | | | | | | +--------+ + + + + | 12/20/ | Office | Otolaryngology | Ulysses Genao MD | | | 2020 | Visit | | [address] | | | | | | [address] [place], | | | | | | [place] [address] | | | | | | [phone] | | | | | | | | +--------+ + + + + documented as of this encounter Visit Diagnoses Not on filedocumented in this encounter"
--- OUTSIDE RECORDS SUMMARY | ~2019-10-16 | XMS | Encounter Summary ---
Demographics + + + | Address | [address] | | | [place] [address] | + + + | Home Phone [...] Team Providers + +------+ + | Care Hooker Laster Name | Role | Phone | [...] + | 10/09/ | Refill | [facility] | Alanis, | Medication Refill | | 2017 | | MEDICINE [address] [place] [address] | MD Petrona | | | | | [facility] | [address] [place] [address] | | | | | [place] [address] | [place] [address] | | | | | [phone] | [phone] | | | | | | | [...] | | | | | [place] [address] | | | | | | [phone] | | | | | | | | +--------+ + + + + | 12/20/ | Office | Audiology | DarioElisabet ramires MS | | | 2019 | Visit | | [facility] [address] | | [address] [place] | | | | | | [place], [place] [address] | | | | | | [phone] | | | | | | | | +--------+ + + + + | 12/20/ | Office | Otolaryngology | Ulysses Genao MD | | | 2019 | Visit | | [address] | | | | | | [address] [place], | | | | | | [place] [address] | | | | | | [phone] | | | | | | | | +--------+ + + + + documented as of this encounter Visit Diagnoses Not on filedocumented in this encounter"
--- OUTSIDE RECORDS SUMMARY | ~2019-10-16 | XMS | Encounter Summary ---
Demographics + + + | Address | [address] | | | [place] [address] | + + + | Home Phone [...] Team Providers + +------+ + | Care Adhesive Bandage Machine Operator Name | Role | Phone [...] as of this encounter Progress Notes Interface, Meat Slicer In - 06/06/2005 2:05 AM [facility] [id number] [facility] Date: 05/29/2005 Clinic: Bariatric [...] a day. She has had workups in [place] including CT and upper GI with small-bowel followthrough which have reportedly been negative. She has some recent changes in her medications including addition of a calcium channel colby and diclofenac. She says her symptoms gets worse every time she takes pain medicine. She is currently taking oxycodone. Her primary doctor in [place] is Dr. Gutierrez. Physical Examination: Vital Signs: [...] will try to arrange for her in [place], so she does not have to come out here. We will call Dr. Gutierrez to try to arrange for this and followup her within 3 months. The patient was seen with Dr. Padgett. Karen Cisneros M.D. Chris Padgett M.D. / SHARIF [id number] / [id number] / [id number] / [id number] Electronically signed by Chris Padgett 06-05-2005 05:29:09 PM documented i n this encounter Plan of Treatment Not on filedocumented as of this encounter Visit Diagnoses Not on filedocumented in this encounter"
--- OUTSIDE RECORDS SUMMARY | ~2019-10-16 | XMS | Encounter Summary ---
Demographics + + + | Address | [address] | | | [place] [address] | + + + | Home Phone [...] Providers + +------+ + | Care Piano Mover Name | Role | Phone | [...] + + | 05/04/ | Refill | [facility] | Alanis, | Medication Refill | | 2016 | | MEDICINE [address] [place] [address] | MD [place] | | | | | [facility] | [address] [place] [address] | | | | | [place] [address] | [place] [address] | | | | | [phone] | [phone] | | | | | | | [...] | | | | | [place] [address] | | | | | | [phone] | | | | | | | | +--------+ + + + + | 12/20/ | Office | Audiology | DarioElisabet ramires MS | | | 2019 | Visit | | [facility] [address] | | | | | [address] [place] | | | | | | [place], [place] [address] | | | | | | [phone] | | | | | | | | +--------+ + + + + | 12/20/ | Office | Otolaryngology | Ulysses Genao MD | | | 2019 | Visit | | [address] | | | | | | [address] [place], | | | | | | [place] [address] | | | | | | [phone] | | | | | | | | +--------+ + + + + documented as of this encounter Visit Diagnoses Not on filedocumented in this encounter"
--- OUTSIDE RECORDS SUMMARY | ~2019-10-16 | XMS | Encounter Summary ---
Demographics + + + | Address | [address] | | | [place] [address] | + + + | Home Phone [...] Providers + +------+ + | Care Chief Clerk Shelter Name | Role | Phone | + [...] + | 11/15/ | Office | [facility] | Emmy-Tajti, | Arthralgia of both | | 2019 | Visit | MEDICINE [address] | MD [place]ron[place] | hands (Primary Dx); | | | | [address] [place] | [address] [facility] | Acquired | | | | [place] [address] | [place] [address] | hypothyroidism; | | | | [phone] | [phone] | Migraine without | | | | [...] migraine COPD (chronic obstructive pulmonary disease) ([facility]) Depression Diarrhea Dumping syndrome Fall at home Fatigue fracture of vertebra Fibromyalgia Full dentures GERD (gastroesophageal reflux disease) Glaucoma Hyperparathyroidism ([facility]) Hypothyroidism IBS (irritable bowel syndrome) Idiopathic scoliosis Leg edema Low back pain Lumbar postlaminectomy syndrome Lumbar radiculopathy primarily right 01/04/2015 Meniere syndrome Migraine with aura Migraines Muscle cramping Muscle spasm Myalgia Nausea Nonalcoholic hepatosteatosis Obesity Opioid dependence ([facility]) Orthostatic hypotension OLIVER (obstructive sleep apnea) Osteoarthritis, generalized Osteopenia Osteoporosis Palpitations Peripheral neuropathy Rheumatoid arthritis ([facility]) Right arm pain 01/04/2015 RLS (restless legs syndrome) S/P lumbar fusion 01/04/2015 Scoliosis Sleep apnea Spondylosis with myelopathy, lumbar region Stroke ([facility]) Syncope Tremor Type II or unspecified [...] Procedure: COLONOSCOPY; Surgeon: Luther Brito MD; Location: [facility] DILATION AND CURETTAGE OF UTERUS ELBOW SURGERY FINGER TRIGGER RELEASE 2003 FINGER TRIGGER RELEASE 2010 GASTRIC BYPASS SURGERY 2004 HYSTERECTOMY 05/14/1980 JOINT REPLACEMENT Bilateral 2006 2007 KNEE ARTHROSCOPY 2005 LAPAROSCOPY 01/27/2015 LAPAROTOMY 2008 ROTATOR CUFF REPAIR 2005 SPINE SURGERY TONSILLECTOMY 1964 UPPER GASTROINTESTINAL ENDOSCOPY N/A 12/18/2017 Procedure: EGD; Surgeon: Luther Brito MD; Location: [facility] CURRENT MEDICATIONS Current Outpatient [...] (See Comments) Confused and questionable for seizures Ckcqnxruyf-Exbo-Vpmgrwui Hives and Rash Cephalexin Hives Ciprofloxacin Hives [...] Note: Parts of this documentwere created using spotdock speech recognition software. As a r esult, [...] | | | | | [place] [address] | | | | | | [phone] | | | | | | | | +--------+ + + + + | 12/20/ | Office | Audiology | Elisabet Munson MS | | | 2019 | Visit | | [facility] [address] | | | | | [address] [place] | | | | | | [place] [address] | | | | | | [phone] | | | | | | | | +--------+ + + + + | 12/20/ | Office | Otolaryngology | Ulysses Genao MD | | | 2019 | Visit | | [address] | | | | | | [address] [place], | | | | | | [place] [address] | | | | | | [phone] | | | | | | | [...] [address] | [place] | [phone] | | [facility] | | [address] | | | - LABORATORY | | [...] | | | | | with both IL-3 and | | | | | | [...] + + + | Performed at: - [facility] [address], | REFERENCE LAB | | [place], [place] [id number] Lace Paper Machine Operator: Manish Chin MD, Phone: | [facility] | | [phone] Performed at: - [address] | | | [place], [place] [id number] Lace Paper Machine Operator: Jeannine Mendoza MD, | | | Phone: [phone] | | + + + + + + + + | Performing | Address | City/State/Zipcode | Phone Number | | Organization | | | | + + + + + | REFERENCE LAB | [address] | [place], [place] | [phone] | | [facility] | Drive [facility] | [address] | | + + + + + [...] + + | Performed at: 01 - [place] [address], | REFERENCE LAB | | [place], [place] [id number] Lace Paper Machine Operator: Bandar Gan MD, Phone: | [facility] | | [phone] | | + + + + + + + + | Performing | Address | City/State/Zipcode | Phone Number | | Organization | | | | + + + + + | REFERENCE LAB | [address] | [place], [place] | [phone] | | [facility] | [address] | [address] | | + + + + + [...] [address] | [place] | [phone] | | [facility] | | [address] | | | - LABORATORY | | [...] [address] | [place] | [phone] | | [facility] | | [address] | | | - LABORATORY | | [...] [address] | [place] | [phone] | | [facility] | | [address] | | | - LABORATORY | | [...] mL/min/1.73m2 | [facility] | | | [facility] | RATE,ESTIMATED | | MEDICAL | | | | mL/min/1.10n9Kizr than | | CENTER - | | [...] LUDWIG. | [address] | [place], [place] | [phone] | | [facility] | | [address] | | | - LABORATORY | | [...]
--- OUTSIDE RECORDS SUMMARY | ~2019-10-16 | XMS | Encounter Summary ---
Demographics + + + | Address | [address] | | | [place] [address] | + + + | Home Phone [...] Team Providers + +------+ + | Care Obstetrical Anesthesiologist Name | Role | Phone | [...] | | | Ave Mailcode: [facility] | [address] | Diarrhea | | | | [facility] | [place], [place] | | | | | and Healing, | [address] | | | | | [place] [address] [facility] | [phone] | | | | | [place], [place] | | | | | | [address] | | | | | | [phone] | | | +--------+ + + + [...]
--- OUTSIDE RECORDS SUMMARY | ~2019-10-16 | XMS | Encounter Summary ---
Demographics + + + | Address | [address] | | | [place] [address] | + + + | Home Phone [...] Team Providers + +------+ + | Care Polisher And Buffer Name | Role | Phone | [...] | | | | Clinical Nutrition | [place], [place] | | | | | [address] | [address] | | | | | Loop Mailcode: OPC5 | [phone] | | | | | Outpatient Clinic | | | | | | [facility] | | | | | | [place] [address] | | | | | | [phone] | | | +--------+ + + + [...] + + + | [facility] | [address] | [place] [address] | | | LABORATORY | | | [...] | uIU/ml | | | | | [facility] | | | | | | Laboratories. | | | | + + + + + + + + | Specimen | + + | | + + + + + + + | Performing | Address | City/State/Zipcode | Phone Number | | Organization | | | | + + + + + | [facility] | [address] | [place] [address] | | | LABORATORY | | | [...] + + + + + | [facility] | [address] | [place] [address] | | | LABORATORY | | | [...] | | | SERUM | performed by [facility] | | | | | | [facility] | | | | | | Laboratories. | | | | + + + + + + + + | Specimen | + + | | + + + + + + + | Performing | Address | City/State/Zipcode | Phone Number | | Organization | | | | + + + + + | [facility] | [address] | [place] [address] | | | LABORATORY | | | [...] + + | [facility] | [address] | [place] [address] | | | PATHOLOGY | [address] | | | + + + + + | [facility] | [address] | [place] [address] | | | PATHOLOGY | [address] | | | + + + + + documented in this encounter Visit Diagnoses Not on filedocumented in this encounter"
--- OUTSIDE RECORDS SUMMARY | ~2019-10-16 | XMS | Encounter Summary ---
Demographics + + + | Address | [address] | | | [place] [address] | + + + | Home Phone [...] Team Providers + +------+ + | Care Stake Setter Name | Role | Phone | [...] + + | 09/16/ | Telephone | [facility] | Miranda Lambert, | Memory loss | | 2006 | | Pain Center at | ANP | | | | | [facility] | | | | | | [address] | | | | | | Mailcode: CH15P | | | | | | [facility] | | | | | | and Healing, | | | | | | Building | | | | | | Floor [place], [place] | | | | | | [address] | | | | | | [phone] | | | +--------+ + + + [...]
--- OUTSIDE RECORDS SUMMARY | ~2019-10-16 | XMS | Encounter Summary ---
Demographics + + + | Address | [address] | | | [place] [address] | + + + | Home Phone [...] Team Providers + +------+ + | Care Roving Weight Gauger Name | Role | Phone | [...] + | 09/21/ | Refill | [facility] | Alanis, | Medication Refill | | 2019 | | MEDICINE [address] | MD [place] | | | | | [facility] | [address] [place] [address] | | | | | [place] [address] | [place] [address] | | | | | [phone] | [phone] | | | | | | | [...] | | | | | [place] [address] | | | | | | [phone] | | | | | | | | +--------+ + + + + | 12/20/ | Office | Audiology | DarioElisabet ramires MS | | | 2019 | Visit | | [facility] [address] | | | [address] [place] | | | | | | [place], [place] [address] | | | | | | [phone] | | | | | | | | +--------+ + + + + | 12/20/ | Office | Otolaryngology | Ulysses Geano MD | | | 2019 | Visit | | [address] | | | | | | [address] [place], | | | | | | [place] [address] | | | | | | [phone] | | | | | | | | +--------+ + + + + documented as of this encounter Visit Diagnoses Not on filedocumented in this encounter"
--- OUTSIDE RECORDS SUMMARY | ~2019-10-16 | XMS | Encounter Summary ---
Demographics + + + | Address | [address] | | | [place] [address] | + + + | Home Phone [...] Team Providers + +------+ + | Care Coin Collector Name | Role | Phone | [...] [facility] | | | | | | [facility] | | | | | | and Healing, | | | | | | Building [address]th | | | | | | Floor [place], [place] | | | | | | [address] | | | | | | [phone] | | | +--------+ + + + [...]
--- OUTSIDE RECORDS SUMMARY | ~2019-10-16 | XMS | Encounter Summary ---
Demographics + + + | Address | [address] | | | [place] [address] | + + + | Home Phone [...] Team Providers + +------+ + | Care Installation Drafter Name | Role | Phone | [...] | | | [address] | [address] Phone: | | | | | | [place], | [phone] | | | | | | [place] | Fax: | | | | | | [address] | [phone] | | | | | | Phone: | | | | | | | [phone] | | | | | | | Fax: | | | | | | | [phone] | | +--------+--------+ + + + + [...] Chronic neck pain; | | | | [address] | | Chronic low back | | | | [phone] | | pain; Lumbar | | | [...] of the procedure you must provide a driver messenger to take you home. For all procedur es it is recommended that someone else drive you home. documented in this encounter Progress Notes Carlos Hsieh MD - 01/04/2015 8:13 AM PDT Carlos Hsieh MD [address] [facility], [address] [place], [place] [address] FAX: PHYSICAL MEDICINE AND REHABILITATION H&P CHIEF COMPLAINT: Chief Complaint Patient presents with Neck Pain Neck pain that radiates between the shoulder blades and down from there HISTORY OF PRESENT ILLNESS: The patient is a 54 y.o. female being seen today at the [facility] of Dr. Booth for complaints [...] were performed by a Dr. García in [place]. Th e patient is unable to take NSAID's because apparently last time she took them she was black and blue all over. PAST MEDICAL HISTORY: Past Medical History Diagnosis Date Diarrhea Osteoarthritis, generalized Migraine Osteopenia Obesity Syncope Hyperparathyroidism ([facility]) RLS (restless legs syndrome) OLIVER (obstructive sleep apnea) Depression COPD (chronic obstructive pulmonary disease) ([facility]) Fibromyalgia Peripheral neuropathy Chronic pain Benign essential hypertension Rheumatoid arthritis ([facility]) IBS (irritable bowel syndrome) Scoliosis Hypothyroidism Stroke ([facility]) Blind left eye Arthritis Osteoporosis [...] visit. ALLERGIES: Allergies Allergen Reactions Amitriptyline Hcl Xjwzxmwiqg-Lazz-Qecnsuhh Cephalexin Ciprofloxacin Clarithromycin Clindamycin Hcl Codeine Sulfate [...] has no apparent deficits with short or middle or intermediate school principal memory. She has appropriate fund of knowledge [...] of the cervical spine next week at [facility]. The patient was informed to contact [...] | | | | | [place] [address] | | | | | | [phone] | | | | | | | | +--------+ + + + + | 12/20/ | Office | Audiology | Elisabet Munson MS | | | 2019 | Visit | | [facility] [address] | | | | | | [address] [place] | | | | | | [place] [address] | | | | | | [phone] | | | | | | | | +--------+ + + + + | 12/20/ | Office | Otolaryngology | Ulysses Genao MD | | | 2020 | Visit | | [address] | | | | | | [address] [place], | | | | | | [place] [address] | | | | | | [phone] | | | | | | | | +--------+ + + + + documented as of this encounter Results [place] ELIANA Lumbar Transforaminal (01/19/2015 12:00 PM PDT) + + | Specimen | + + | | + + + + + | Narrative | Performed At | + + + | 01/19/2015 Bilateral Transforaminal Epidural Steroid Injections | [place] | | Diagnosis: Lumbar radiculopathy ICD-9 Code 724.4 Belinda Basilio | [facility] | | Shefali presents to the fluoroscopy suite for [facility] | | fluoroscopically-guided bilateral L5-S1 [...] + | [address] | [address] | [place] | [phone] | | [facility] | | [address] | | | - IMAGING | | [...]
--- OUTSIDE RECORDS SUMMARY | ~2019-10-16 | XMS | Encounter Summary ---
Demographics + + + | Address | [address] | | | [place] [address] | + + + | Home Phone [...] Providers + +------+ + | Care Job Analysis Manager Name | Role | Phone [...] | | 2006 | Visit | Center [facility] | [address] | Pain; Cervical Pain; | | | | [place] [address] [place], | Pain in Joint, Site | | | | [address] Mailcode: | [place] [address] | Unspecified; | | | | CH15P [facility] | | Depression | | | | Health and Healing, | | | | | | Building | | | | | | Floor [place], [place] | | | | | | [address] | | | | | | [phone] | | | +--------+---------+ + + + [...] EVALUATION NOTE Date: 06/23/2006 Name: Belinda Meehan [id number] 46 y.o. female Start of Care: 06/23/2005 [...] the last few gregory hs. Handedness: right [place]: [place], [place] Chief Complaint: Headaches and cervical pain, bilateral [...] HX [place]-OOPHORECTOMY COLONOSCOPY Comment: 03/2006 HX TONSILLECTOMY [place] D&C AFTER DELIVERY [place] INJECT TRIGGER POINT, 1 OR 2 Medications: [...] + + +--------+ + + | [place] PHYS THERAPY | Procedures | Routin | [...]
--- OUTSIDE RECORDS SUMMARY | ~2019-10-16 | XMS | Encounter Summary ---
Demographics + + + | Address | [address] | | | [place] [address] | + + + | Home Phone [...] Providers + +------+ + | Care Structural Test Engineer Name | Role | Phone [...] + + | 02/02/ | Telephone | [facility] | Alanis, | Pain | | 2019 | | MEDICINE [address] [place] [address] | MD [place] | | | | | [place] | [address] [place] [address] | | | | | [place] [address] | [place] [address] | | | | | [phone] | [phone] | | | | | | | [...] | | | | | [place] [address] | | | | | | [phone] | | | | | | | | +--------+ + + + + | 12/20/ | Office | Audiology | Elisabet Munson MS | | 2019 | Visit | | [facility] [address] | | | | | | [address] [place] | | | | | | [place] [address] | | | | | | [phone] | | | | | | | | +--------+ + + + + | 12/20/ | Office | Otolaryngology | Ulysses Genao MD | | | 2020 | Visit | | [address] [facility] | | | | | | [address] [place], | | | | | | [place] [address] | | | | | | [phone] | | | | | | | | +--------+ + + + + documented as of this encounter Visit Diagnoses Not on filedocumented in this encounter"
--- OUTSIDE RECORDS SUMMARY | ~2019-10-16 | XMS | Encounter Summary ---
Demographics + + + | Address | [address] | | | [place] [address] | + + + | Home Phone [...] Providers + +------+ + | Care Mobile Designer Name | Role | Phone | [...] 09/23/ | Office | [facility] Center at [facility] | Lukasz Charles, | Major Depressive | | 2006 | Visit | [address] | PhD [address] | Disorder, Recurrent | | | | Mailcode: CH15 | [place], [place] | Episode, Moderate | | | | [facility] | [address] | (HCC); Chronic | | | | and Healing, | [phone] | Abdominal Pain; | | | | Building | | Herniated Lumbar | | | | Floor [place], [place] | | Intervertebral Disc | | | | [address] | | L4-5; 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 Diagnosis: Arnold I: 1. (296.32) Major depressive disorder, recurrent, moderate. 2. (309.24) Adjustment disorder with anxiety. 3. 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 Arnold II: Deferred Arnold III: abdominal pain, migraine headache, low back pain. Arnold IV: low finances Arnold V: GAF 50 Plan: Return in 2 weeks. Check preparation for move and for niece's visit, [employer] gym, pacing, r elaxation, activity, distraction. Check managing Pain... book. Discuss need for further vi sits. Total time spent with patient was approximately 45 minutes. LUKASZ CHARLES PHD [facility] [address] [facility], [address] [place] [id number] documented in this encount er Plan of [...]
--- OUTSIDE RECORDS SUMMARY | ~2019-10-16 | XMS | Encounter Summary ---
Demographics + + + | Address | [address] | | | [place] [address] | + + + | Home Phone [...] Team Providers + +------+ + | Care Smelter Liner Name | Role | Phone | [...] of this encounter Progress Notes Interface, Senior Sas Programmer In - 01/12/2005 8:09 AM PDT [id number] [facility] Date: 03/07/2004 Clinic: [facility] TELEPHONE CONVERSATION Subjective: Belinda contacted [...] cholelithiasis. She is welcome to come to [facility] for evaluation; however, given the distance of a 4-hour travel time, we found it would be more expeditious for her to be seen at her local hospital in [place]. The patient also agrees with this plan [...] additional followup as needed. Christie Kirkpatrick / [id number] / [id number] / [id number] / documented i n this encounter Plan of Treatment Not on filedocumented as of this encounter Visit Diagnoses Not on filedocumented in this encounter"
--- OUTSIDE RECORDS SUMMARY | ~2019-10-16 | XMS | Encounter Summary ---
Demographics + + + | Address | [address] | | | [place] [address] | + + + | Home Phone [...] Team Providers + +------+ + | Care Faith Doctor Name | Role | Phone | [...] + | 02/22/ | Telephone | [facility] | Alanis, | Medication Question | | 2018 | | MEDICINE [address] [place] [address] | MD [place] | | | | | [facility] | [address] [place] [address] | | | | | [place] [address] | [place] [address] | | | | | [phone] | [phone] | | | | | | | [...] | | | | | [place] [address] | | | | | | [phone] | | | | | | | | +--------+ + + + + | 12/20/ | Office | Audiology | Elisabet Munson MS | | | 2019 | Visit | | [facility] [address] | [address] [place] | | | | | | [place] [address] | | | | | | [phone] | | | | | | | | +--------+ + + + + | 12/20/ | Office | Otolaryngology | Ulysses Genao MD | | | 2019 | Visit | | [address] | | | | | | [address] [place], | | | | | | [place] [address] | | | | | | [phone] | | | | | | | | +--------+ + + + + documented as of this encounter Visit Diagnoses Not on filedocumented in this encounter"
--- OUTSIDE RECORDS SUMMARY | ~2019-10-16 | XMS | Encounter Summary ---
Demographics + + + | Address | [address] | | | [place] [address] | + + + | Home Phone [...] Providers + +------+ + | Care Medical Charge Entry Specialist Name | Role | Phone | [...] + + | 08/10/ | Telephone | [facility] | Rosi Antonio, | Fall Ground Level | | 2013 | | Pain Center at | ANP | | | | | [facility] | | | | | | [address] | | | | | | Mailcode: CH15P | | | | | | [facility] | | | | | | and Healing, | | | | | | Building | | | | | | Floor [place], [place] | | | | | | [address] | | | | | | [phone] | | | +--------+ + + + [...]
--- OUTSIDE RECORDS SUMMARY | ~2019-10-16 | XMS | Encounter Summary ---
Demographics + + + | Address | [address] | | | [place] [address] | + + + | Home Phone [...] Team Providers + +------+ + | Care Sounding Device Operator Name | Role | Phone | [...] Thoracic or | [place], | [address] | | | | | lumbosacral | Carlos Armijo MD | [place], | | | | | neuritis or | [address] | [place] | | | | | | ST [place] | [address] | | | | | radiculitis, | [place], [place] | Phone: | | | | | unspecified | [address] | [phone] | | | | | Procedures | Phone: | Fax: | | | | | ME INJECT | [phone] | [phone] | | | | | ANES/STEROID | Fax: | | | | | | FORAMEN | [phone] | | | | | | LUMBAR/SACRA | | | | | | | L W IMG | | | | | | | GUIDE ,1 | | | | | | | LEVEL ME | | | | | | | [...] + + + + | 01/19/ | [facility] | [facility] | Carlos Hsieh | Lumbar radiculopathy | | 2015 | Encounter | MED CTR XRAY [address] | T, [address] | primarily right | | | | [address] | [facility] [place] | | | | | [place] [address] | [address] | | | | | [phone] | | | | | | | Oil Burner Installer, [facility] | | | | | | [...] | | | | | Karla [facility] | | | | | | [place] [address] | | | | | | [phone] | | | | | | | | +--------+ + + + + | 12/20/ | Office | Audiology | Elisabet Munson MS | | | 2019 | Visit | | [facility] [address] | | | | | | [address] [place] | | | | | | [place] [address] | | | | | | [phone] | | | | | | | | +--------+ + + + + | 12/20/ | Office | Otolaryngology | Ulysses Genao MD | | | 2019 | Visit | | [address] | | | | | | [address] [place], | | | | | | [place] [address] | | | | | | [phone] | | | | | | | [...] Shefali presents to the fluoroscopy suite for [facility] | | fluoroscopically-guided bilateral L5-S1 [...] ST. | [address] | [place], [place] | [phone] | | [facility] | | [address] | | | - IMAGING | | [...]
--- OUTSIDE RECORDS SUMMARY | ~2019-10-16 | XMS | Encounter Summary ---
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 Provider: DELFINA MOLINA ANP Nathalia Keyes - 007 12:04 PM PST Physical Therapy Medicare Progress Note Date: 08/12/2006 Belinda Meehan [id number]. 1960 Start of Care: 06/23/2006 Referring Provider: [...] [place] THERAPEUTIC | Procedures | Routin | Spondylosis [...] [place] THERAPEUTIC | Procedures | Routin | Spondylosis [...]
--- OUTSIDE RECORDS SUMMARY | ~2019-10-16 | XMS | Encounter Summary ---
Demographics + + + | Address | [address] | | | [place] [address] | + + + | Home Phone [...] Providers + +------+ + | Care Electric Golf Cart Repairer Name | Role | Phone | [...] + + | 03/28/ | Refill | [facility] | Alanis, | Medication Refill | | 2016 | | MEDICINE [address] [place] [address] | MD Petrona | | | | | [facility] | [address] [place] [address] | | | | | [place] [address] | [place] [address] | | | | | [phone] | [phone] | | | | | | | [...] | | | | | [place] [address] | | | | | | [phone] | | | | | | | | +--------+ + + + + | 12/20/ | Office | Audiology | DarioElisabet ramires MS | | | 2019 | Visit | | [facility] [address] | | | | | | [address] [place] | | | | | | [place], [place] [address] | | | | | | [phone] | | | | | | | | +--------+ + + + + | 12/20/ | Office | Otolaryngology | Ulysses Genao MD | | | 2019 | Visit | | [address] | | | | | | [address] [place], | | | | | | [place] [id number] | | | | | | [phone] | | | | | | | | +--------+ + + + + documented as of this encounter Visit Diagnoses Not on filedocumented in this encounter"
--- OUTSIDE RECORDS SUMMARY | ~2019-10-16 | XMS | Encounter Summary ---
Demographics + + + | Address | [address] | | | [place] [address] [...] Providers + +------+ + | Care Consumer Affairs Director Name | Role | Phone | [...] | unspecified | | | | [address] [facility] | VERONICA KAY | chronicity (Primary | | | | [place] | [place] [address] | Dx) | | | | [address] | [phone] | | | | | [phone] | | | +--------+ + + + [...] | | | | | [place] [address] | | | | | | [phone] | | | | | | | | +--------+ + + + + | 12/20/ | Office | Audiology | Elisabet Munson MS | | | 2019 | Visit | | [facility] [address] | | | | | | [place] [address] [place] | | | | | | [place] [address] | | | | | | [phone] | | | | | | | | +--------+ + + + + | 12/20/ | Office | Otolaryngology | Ulysses Genao MD | | | 2020 | Visit | | [address] | | | | | | [address] [place], | | | | | | [place] [address] | | | | | | [phone] | | | | | | | [...]
--- OUTSIDE RECORDS SUMMARY | ~2019-10-16 | XMS | Encounter Summary ---
Demographics + + + | Address | [address] | | | [place] [address] | + + + | Home Phone [...] Required | | paroxysmal | [address] | [facility] | | | | | positional | [address] | [address] | | | | | vertigo, | [place] | AVE | | | | | left | [place], [place] | [place], [place] | | | | | Vertigo of | [address] | [address] | | | | | central | Phone: | Phone: | | | | | origin, left | [phone] | [phone] | | | | | | Fax: | Fax: | | | | | | [phone] | [phone] | +--------+ + + + + + + + | Scheduling Instructions | + + | Patient is going to be having an Tayler maneuver done and at [facility]. | + + Encounter Details +--------+ + + + + | Date | Type | Department | Care Team | Description | +--------+ + + + + | 12/11/ | Orders Only | [facility] | Ulysses Genao MD | Benign paroxysmal | | 2015 | | OTOLARYNGOLOGY [address] | [address] | positional vertigo, | | | | [address] | [address] [place], | left (Primary Dx); | | | | [place], [place] | [place] [address] | Vertigo of central | | | | [address] | [phone] | origin, left | | | | [phone] | | | +--------+ + + + [...] | | | | | [place] [address] | | | | | | [phone] | | | | | | | | +--------+ + + + + | 12/20/ | Office | Audiology | Elisabet Munson MS | | | 2019 | Visit | | [facility]A [address] | | | | | | [address] [place] | | | | | | [place] [address] | | | | | | [phone] | | | | | | | | +--------+ + + + + | 12/20/ | Office | Otolaryngology | Ulysses Genao MD | | | 2019 | Visit | | [address] | | | | | | [address] [place], | | | | | | [place] [address] | | | | | | [phone] | | | | | | | [...]
--- OUTSIDE RECORDS SUMMARY | ~2019-10-16 | XMS | Encounter Summary ---
Demographics + + + | Address | [address] | | | [place] [address] | + + + | Home Phone [...] Providers + +------+ + | Care Transportation Escort Name | Role | Phone | [...] 10/28/ | Office | [facility] | Lukasz Charles, | Major Depressive | | 2006 | Visit | [address] | PhD [address] | Disorder, Recurrent | | | | Mailcode: CH15P | [place], [place] | Episode, Moderate | | | | [facility] | [address] | ([facility]); Neck Pain; | | | | and Healing, | [phone] | Herniated Lumbar | | | | Building | | Intervertebral Disc | | | | Floor [place], [place] | | L4-5; 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 . She has been doing cross stitch [...] She has using good self-care skills. Diagnosis: [place] I: 1. (296.32) Major depressive disorder, recurrent, moderate. 2. (309.24) Adjustment disorder with anxiety. 3. 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 [place] II: Deferred [place] III: abdominal pain, migraine headache, low back pain. [place] IV: low finances [place] V: GAF 50 Plan: Return in 2 weeks. Check preparation for move and for niece's visit, results of orthopedic visit. Check pacing, relaxation, activity, distraction. Continue cognitive/behavioral the rapy. Total time spent with patient was approximately 45 minutes. LUKASZ CHARLES [facility] [address] [facility], 4th [place] [address] documented in this encount er Plan of [...]
--- OUTSIDE RECORDS SUMMARY | ~2019-10-16 | XMS | Encounter Summary ---
Demographics + + + | Address | [address] | | | [place] [address] | + + + | Home Phone [...] Team Providers + +------+ + | Care Turf Manager Name | Role | Phone | [...] Rd | | | | | | [place], [place] | | | | | | [address] | | | +--------+ + + + [...]
--- OUTSIDE RECORDS SUMMARY | ~2019-10-16 | XMS | Encounter Summary ---
Demographics + + + | Address | [address] | | | [place] [address] | + + + | Home Phone [...] Team Providers + +------+ + | Care Breaker Up Name | Role | Phone | [...] | Pain | Diagnoses | Miracle, | Spink, | | | | Management | LBP (low | NIHARIKA Jean | Lukasz Rhodes, PhD | | | | | back pain) | [address] | | | | | [address] | [address] | Ave | | | | | (degenerativ | [place], [place] | [place], [place] | | | | | e joint | [address] | [address] | | | | | disease) of | | Phone: | | | | | knee Knee | | [phone] | | | | | pain Major | | Fax: | | | | | depressive | | [phone] | | | | | disorder, | [...] 03/03/ | Office | [facility] | Lukasz Charles, | Major Depressive | | 2007 | Visit | [address] | PhD [address] | Disorder, Recurrent | | | | Mailcode: [facility] | [place], [place] | Episode, Moderate | | | | [facility] | [address] | ([facility]); LBP (Low Back | | | | and Healing, | [phone] | Pain); Bilateral | | | | | | Knee Pain; | | | | Floor [place], [place] | | Fibromyalgia | | | | [address] | | syndrome 729.1; | | | | [phone] | | Adjustment Disorder | | | [...] seems to be doing good self-care. Diagnosis: [place] I: 1. (296.32) Major depressive disorder, recurrent, moderate. 2. (309.24) Adjustment disorder with anxiety. 3. 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 [place] II: Deferred [place] III: abdominal pain, migraine headache, low back pain. [place] IV: low finances [place] V: GAF 55-60 Plan: return with next medical follow-up appointment. Check mood, pain, relaxation, activ ity, distraction, eating. Continue cognitive/behavioral therapy. Total time spent with patient was approximately 45 minutes. LUKASZ CHARLES PHD [facility] [address] [facility], 4th [place] [address] documented in this encount er Plan of Treatment + + +--------+ + + | Name | Type | Priori | Associated Diagnoses | Order Schedule | | | | ty | | | + + +--------+ + + | MD PSYCHOTHERPY, | Procedures | Routin | Major Depressive | Ordered: 03/03/2008 | | OFFICE (47-52) | | e | Disorder, Recurrent | [...]
--- OUTSIDE RECORDS SUMMARY | ~2019-10-16 | XMS | Encounter Summary ---
Demographics + + + | Address | [address] | | | [place] [address] | + + + | Home Phone [...] Providers + +------+ + | Care Driver Messenger Name | Role | Phone | [...] + + | 03/01/ | Telephone | [facility] | Alanis, | Other | | 2018 | | MEDICINE [address] [place] [address] | MD Petrona | | | | | [facility] | [address] [place] [address] | | | | | [place] [address] | [place] [address] | | | | | [phone] | [phone] | | | | | | | [...] | | | | | [place] [address] | | | | | | [phone] | | | | | | | | +--------+ + + + + | 12/20/ | Office | Audiology | Elisabet Munson MS | | 2019 | Visit | | [facility] [address] | | | | | | [address] [place] | | | | | | [place] [address] | | | | | | [phone] | | | | | | | | +--------+ + + + + | 12/20/ | Office | Otolaryngology | Ulysses Genao MD | | | 2020 | Visit | | [address] [facility] | | | | | | [address] [place], | | | | | | [place] [address] | | | | | | [phone] | | | | | | | | +--------+ + + + + documented as of this encounter Visit Diagnoses Not on filedocumented in this encounter"
--- OUTSIDE RECORDS SUMMARY | ~2019-10-16 | XMS | Encounter Summary ---
Demographics + + + | Address | [address] | | | [place] [address] | + + + | Home Phone [...] + + | 04/15/ | Telephone | [facility] | Alanis, | Other (Pain clinic) | | 2019 | | MEDICINE [address] [place] [address] | MD Petrona | | | | | [facility] | [address] [place] [address] | | | | | [place] [address] | [place] [address] | | | | | [phone] | [phone] | | | | | | | [...] | | | | [address] [facility] | | | | | | [place] [address] | | | | | | [phone] | | | | | | | | +--------+ + + + + | 12/20/ | Office | Audiology | Elisabet Munson MS | | | 2019 | Visit | | [facility] [address] | | | | | | [address] [place] | | | | | | [place], [place] [address] | | | | | | [phone] | | | | | | | | +--------+ + + + + | 12/20/ | Office | Otolaryngology | Ulysses Genao MD | | | 2019 | Visit | | [address] | | | | | | [address] [place], | | | | | | [place] [address] | | | | | | [phone] | | | | | | | | +--------+ + + + + documented as of this encounter Visit Diagnoses Not on filedocumented in this encounter"
--- OUTSIDE RECORDS SUMMARY | ~2019-10-16 | XMS | Encounter Summary ---
Demographics + + + | Address | [address] | | | [place] [address] | + + + | Home Phone [...] Providers + +------+ + | Care Air Brake Adjuster Name | Role | Phone | [...] + | 06/14/ | Refill | [facility] | Alanis, | Medication Refill | | 2018 | | MEDICINE [address] [place] [address] | MD Petrona | | | | | [facility] | [address] [place] [address] | | | | | [place] [address] | [place] [address] | | | | | [phone] | [phone] | | | | | | | [...] | | | | | [place] [address] | | | | | | [phone] | | | | | | | | +--------+ + + + + | 12/20/ | Office | Audiology | DarioElisabet ramires MS | | | 2019 | Visit | | [facility] [address] | | | | | | [address] [place] | | | | | | [place], [place] [address] | | | | | | [phone] | | | | | | | | +--------+ + + + + | 12/20/ | Office | Otolaryngology | Ulysses Genao MD | | | 2019 | Visit | | [address] | | | | | | [address] [place], | | | | | | [place] [address] | | | | | | [phone] | | | | | | | | +--------+ + + + + documented as of this encounter Visit Diagnoses Not on filedocumented in this encounter"
--- OUTSIDE RECORDS SUMMARY | ~2019-10-16 | XMS | Encounter Summary ---
Demographics + + + | Address | [address] | | | [place] [address] | + + + | Home Phone [...] Providers + +------+ + | Care Gym Supervisor Name | Role | Phone | [...] + + | 03/15/ | Telephone | [facility] | Alanis, | Appointment | | 2018 | | MEDICINE [address] [place] [address] | MD Petrona | | | | | [facility] | [address] [place] [address] | | | | | [place] [address] | [place] [address] | | | | | [phone] | [phone] | | | | | | | [...] | | | | | [place] [address] | | | | | | [phone] | | | | | | | | +--------+ + + + + | 12/20/ | Office | Audiology | Elisabet Munson MS | | 2019 | Visit | | [address] | | | | | | [address] [place] | | | | | | [place] [address] | | | | | | [phone] | | | | | | | | +--------+ + + + + | 12/20/ | Office | Otolaryngology | Ulysses Genao MD | | | 2020 | Visit | | [address] | | | | | | [address] [place], | | | | | | [place] [address] | | | | | | [phone] | | | | | | | | +--------+ + + + + documented as of this encounter Visit Diagnoses Not on filedocumented in this encounter"
--- OUTSIDE RECORDS SUMMARY | ~2019-10-16 | XMS | Encounter Summary ---
Demographics + + + | Address | [address] | | | [place] [address] | + + + | Home Phone [...] Providers + +------+ + | Care Air Brush Decorator Name | Role | Phone | [...] 2006 | Visit | Rheumatology 3245 | REHABILITATION ASSISTANT | (Primary Dx); | | | | TRACE Sharmila Schilling | | Fibromyalgia; | | | | Mailcode: OPC5 | | Fibromyalgia | | | | Outpatient Clinic | | | | | | Building [place], | | | | | | [place] [address] | | | | | | [phone] | | | +--------+---------+ + + + [...] discomfort- entire abd around to back. Seeing [facility] pain clinic. Fentanyl patch helped [...] + + +--------+ + + | NC INJECT TRIGGER | Procedures | Routin | Fibromyalgia | Ordered: 02/16/2007 | | POINTS, > 3 | | e | | | + + +--------+ + + | NC INJECT TRIGGER | Procedures | Routin | Fibromyalgia | Ordered: 02/16/2007 | | POINTS, > 3 | | e | Fibromyalgia | | + + +--------+ + + | NC INJECT TRIGGER | Procedures | Routin | [...]
--- OUTSIDE RECORDS SUMMARY | ~2019-10-16 | XMS | Encounter Summary ---
Demographics + + + | Address | [address] | | | [place] [address] | + + + | Home Phone [...] Providers + +------+ + | Care Go Go Dancer Name | Role | Phone | + +------+ + | Sulaiman Carrera MD | PCP | | + +------+ + Encounter Details +--------+ + + + + | Date | Type | Department | Care Team | Description | +--------+ + + + + | 08/26/ | Ancillary | Registration [id number] | | | | 2006 | Registratio | TRACE Mcrae | | | | | n | Peterson Mailcode: RPB07 | | | | | | [place], [place] | | | | | | [address] | | | | | | [phone] | | | +--------+ + + + [...]
--- OUTSIDE RECORDS SUMMARY | ~2019-10-16 | XMS | Encounter Summary ---
Demographics + + + | Address | [address] | | | [place] [address] | + + + | Home Phone [...] Team Providers + +------+ + | Care Bleacher [employer] Name | Role | Phone | + [...] | Pain | Diagnoses | Miracle, | [place], | | | | Management | LBP (low | NIHARIKA Jean | Lukasz Rhodes, PhD | | | | | back pain) | [address] | | | | | [address] | [address] | Ave | | | | | (degenerativ | [place], [place] | [place], [place] | | | | | e joint | [address] | [address] | | | | | disease) of | | Phone: | | | | | knee Knee | | [phone] | | | | | pain Major | | Fax: | | | | | depressive | | [phone] | | | | | disorder, | [...] 04/28/ | Office | [facility] | Lukasz Charles, | Major Depressive | | 2007 | Visit | [address] | PhD [address] | Disorder, Recurrent | | | | Mailcode: CH15P | [place], [place] | Episode, Mild (HCC); | | | | [place] [facility] | [address] | LBP (Low Back | | | | and Healing, | [phone] | Pain); Migraine | | | | | | Headache | | | | Floor [place], [place] | | | | | | [address] | | | | | | [phone] | | | +--------+---------+ + + + [...] scheduled to come here after surgery. Diagnosis: [place] I: 1. (296.31) Major depressive disorder, recurrent, mild. 2. (309.24) Adjustment disorder with anxiety. 3. 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 [place] II: Deferred [place] III: abdominal pain, migraine headache, low back pain. [place] IV: low finances [place] V: GAF 55-60 Plan: return with next medical follow-up appointment. Check mood, pain, surgical recovery , relaxation, activity, distraction, eating. Ask about headaches, fainting, Thanksgiving. Continue cognitive/behavioral therapy. Total time spent with patient was approximately 45 minutes. LUKASZ CHARLES PHD [facility] [address] [facility], 4th [place] [address] documented in this encount er Plan of Treatment + + +--------+ + + | Name | Type | Priori | Associated Diagnoses | Order Schedule | | | | ty | | | + + +--------+ + + | AL PSYCHOTHERPY, | Procedures | Routin | Major Depressive | Ordered: 04/28/2008 | | OFFICE (24-26) | | e | Disorder, Recurrent | [...]
--- OUTSIDE RECORDS SUMMARY | ~2019-10-16 | XMS | Encounter Summary ---
Demographics + + + | Address | [address] | | | [place] [address] | + + + | Home Phone [...] + +------+ + | Care Collector Of Internal Revenue Name | Role | Phone | + [...] + + | 09/14/ | Telephone | [facility] | Alanis, | Chest Pain | | 2019 | | MEDICINE [address] [place] [address] | MD Petrona | | | | | [facility] | [address] [facility] | | | | | [place] [address] | [place] [address] | | | | | [phone] | [phone] | | | | | | | [...] | | | | | [place] [address] | | | | | | [phone] | | | | | | | | +--------+ + + + + | 12/20/ | Office | Audiology | Elisabet Munson MS | | 2019 | Visit | | [facility] | | | | | [address] [place] | | | | | | [place] [address] | | | | | | [phone] | | | | | | | | +--------+ + + + + | 12/20/ | Office | Otolaryngology | Ulysses Genao MD | | | 2020 | Visit | | [address] | | | | | | [address] [place], | | | | | | [place] [address] | | | | | | [phone] | | | | | | | | +--------+ + + + + documented as of this encounter Visit Diagnoses Not on filedocumented in this encounter"
--- OUTSIDE RECORDS SUMMARY | ~2019-10-16 | XMS | Encounter Summary ---
Demographics + + + | Address | [address] | | | [place] [address] | + + + | Home Phone [...] Providers + +------+ + | Care Credit Reporter Name | Role | Phone | [...] | | | OFFICE VISIT | | [address] Phone: | | | | | REGULAR | | [phone] | | | | | | | Fax: | | | | | | | [phone] | +--------+--------+ + + + + Encounter Details +--------+---------+ + + + | Date | Type | Department | Care Team | Description | +--------+---------+ + + + | 12/30/ | Office | [facility] | Elisabet Munson MS | Subjective tinnitus | | 2018 | Visit | AUDIOLOGY AND | [facility] [address] | of left ear (Primary | | | | [facility] | [address] [place] | Dx) | | | | [address] | [place] [address] | | | | | [address] [place] | [phone] | | | | | [place] [address] | | | | | | [phone] | | | +--------+---------+ + + + [...] left ear. Follow-up care with Dr. Genao, . Thank [...] | | | | | | [address] [place] [address] [place] | | | | | | [place] [address] | | | | | | [phone] | | | | | | | | +--------+ + + + + | 12/20/ | Office | Audiology | Elisabet Munson MS | | | 2019 | Visit | | [facility] [address] | | | | | | [address] [place] | | | | | | [place], [place] [address] | | | | | | [phone] | | | | | | | | +--------+ + + + + | 12/20/ | Office | Otolaryngology | Ulysses Genao MD | | | 2019 | Visit | | [address] | | | | | | [address] [place], | | | | | | [place] [address] | | | | | | [phone] | | | | | | | [...]
--- OUTSIDE RECORDS SUMMARY | ~2019-10-16 | XMS | Encounter Summary ---
Demographics + + + | Address | [address] | | | [place] [address] | + + + | Home Phone [...] + +------+ + | Care Director Of Education And Training Name | Role | Phone | [...] + | 03/04/ | Telephone | [facility] | Alanis, | Fever | | 2018 | | MEDICINE [address] [place] [address] | MD Petrona | | | | | [facility] | [address] [place] [address] | | | | | [place] [address] | [place] [address] | | | | | [phone] | [phone] | | | | | | | [...] | | | | | [place] [address] | | | | | | [phone] | | | | | | | | +--------+ + + + + | 12/20/ | Office | Audiology | Elisabet Munson MS | | 2019 | Visit | | [facility] [address] | | | | | | [address] [place] | | | | | | [place] [address] | | | | | | [phone] | | | | | | | | +--------+ + + + + | 12/20/ | Office | Otolaryngology | Ulysses Genao MD | | | 2020 | Visit | | [address] [facility] | | | | | | [address] [place], | | | | | | [place] [address] | | | | | | [phone] | | | | | | | | +--------+ + + + + documented as of this encounter Visit Diagnoses Not on filedocumented in this encounter"
--- OUTSIDE RECORDS SUMMARY | ~2019-10-16 | XMS | Encounter Summary ---
Demographics + + + | Address | [address] | | | [place] [address] | + + + | Home Phone [...] Providers + +------+ + | Care Acid Dipper Name | Role | Phone | [...] | | | | CONSULT TO | [place], [place] | [address] | | | | | NEUROLOGY | [address] | for Health | | | | | | | and Healing, | | | | | | | Building [address], | | | | | | | 8th Floor | | | | | | | [place], [place] | | | | | | | [address] | | | | | | | Phone: | | | | | | | [phone] | | | | | | | Fax: | | | | | | | [phone] | +--------+--------+ + + + + Reason for Visit +--------+ + | Reason | Comments | +--------+ + | Pain | back, legs, headache | +--------+ + Encounter Details +--------+---------+ + + + | Date | Type | Department | Care Team | Description | +--------+---------+ + + + | 08/12/ | Office | [facility] | Delfina Molina, | Migraine Headache | | 2006 | Visit | Pain Center at | ANP | (Primary Dx); | | | | [facility] | | 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 female [facility] Return Visit Chief [...] in two weeks or PRN DELFINA MOLINA [facility] Mail code CH 4P [facility] and [address] [place] [address] Alisha Marquez - 7 [...]
--- OUTSIDE RECORDS SUMMARY | ~2019-10-16 | XMS | Encounter Summary ---
Demographics + + + | Address | [address] | | | [place] [address] | + + + | Home Phone [...] Providers + +------+ + | Care Training Assistant Name | Role | Phone | [...] as of this encounter Progress Notes Interface, Class A Lineman In - 01/12/2005 6:20 AM PDT JenniferBelinda garner [id number] MED REC NUMBER: [id number] NAME : Belinda Meehan DATE : 1960 DISCHARGE ASSESSMENT AND CASE MANAGEMENT NOTES Chart Reviewed: 2004-12-04 15:29:00 Finger Cobbler: Lou Jordan RN Preadmission living situation: family If facilty, name: Additional needs assessment: Case Management Initial Assessment and Ongoing Notes: 12/04/2004 15:29 Rec'd referral from IR printout. Pt presenti jen for panniculectomy per Dr. Chris Padgett 12/06/2004. ----- ------- Living Situation: Pt lives w/ her son, Sree in [place], [place]. Pt also has a caregiver from [employer] and [facility] [facility] [facility] come in for 8-9 hours per day when her son is not home. Transportation: Pat w/ [employer] [facility] will take pt home (H) (C). Home Health: Pt has an RN from [employer] and [facility] [facility] visit once a month for an assesment (H) or (C). Medical Equipment: Pt states that she has forearm crutches, a shower chair, and is working on getting hand bars installed into her shower. ---- Co-Morbidities: Panniculitis, s/p gastric bypass, arthritis, asthma, NIDDM, GERD, HTN, and sleep apnea. ------ Providers: PCP is Dr. Pedrito Gutierrez in [facility] and Dr. William Meeks [facility] metabolic disorder clinic. Narrative: Pt asked if [...] or concerns, contact information given. [place]UR [id number] documented i n this encounter Plan of Treatment Not on filedocumented as of this encounter Visit Diagnoses Not on filedocumented in this encounter"
--- OUTSIDE RECORDS SUMMARY | ~2019-10-16 | XMS | Encounter Summary ---
Demographics + + + | Address | [address] | | | [place] [address] | + + + | Home Phone [...] Providers + +------+ + | Care Health Evaluator Name | Role | Phone | [...] + | 05/30/ | Refill | [facility] | Alanis, | Medication Refill | | 2016 | | MEDICINE [address] [place] [address] | MD Petrona | | | | | [facility] | [address] [place] [address] | | | | | [place] [address] | [place] [address] | | | | | [phone] | [phone] | | | | | | | [...] | | | | | [place] [address] | | | | | | [phone] | | | | | | | | +--------+ + + + + | 12/20/ | Office | Audiology | DarioElisabet ramires MS | | | 2019 | Visit | | [facility] [address] | | | | [address] [place] | | | | | | [place], [place] [address] | | | | | | [phone] | | | | | | | | +--------+ + + + + | 12/20/ | Office | Otolaryngology | Ulysses Genao MD | | | 2019 | Visit | | [address] | | | | | | [address] [place], | | | | | | [place] [address] | | | | | | [phone] | | | | | | | | +--------+ + + + + documented as of this encounter Visit Diagnoses Not on filedocumented in this encounter"
--- OUTSIDE RECORDS SUMMARY | ~2019-10-16 | XMS | Encounter Summary ---
Demographics + + + | Address | [address] | | | [place] [address] | + + + | Home Phone [...] Providers + +------+ + | Care Trimming Operator Name | Role | Phone | [...] as of this encounter Progress Notes Interface, Wood Finisher In - 09/13/2005 2:06 AM PST [id number] [facility] Date: 07/03/2005 Clinic: [...] which are pending through the laboratory in [place]. Allergies: PENICILLIN, CODEINE, KEFLEX, SULFA, CIPRO, AND [...] which were done several days ago in [place]. Beto Meeks M.D. PD / HS [id number] / [id number] / [id number] / [id number] cc: Chris Padgett M.D. [facility] Electronically signed by Beto Meeks 09-12-2005 02:23:07 AM documented i n this encounter Plan of Treatment Not on filedocumented as of this encounter Visit Diagnoses Not on filedocumented in this encounter"
--- OUTSIDE RECORDS SUMMARY | ~2019-10-16 | XMS | Encounter Summary ---
Demographics + + + | Address | [address] | | | [place] [address] | + + + | Home Phone [...] Providers + +------+ + | Care Assistant Associate Full Professor Name | Role | Phone | [...] | | | | [id number] Physician's | [place], [place] | | | | | [address] | [address] | | | | | [place], [place] | [phone] | | | | | [address] | | | | | | [phone] | | | +--------+ + + + [...]
--- OUTSIDE RECORDS SUMMARY | ~2019-10-16 | XMS | Encounter Summary ---
Demographics + + + | Address | [address] | | | [place] [address] | + + + | Home Phone [...] as of this encounter Progress Notes Interface, Can Closing Machine Tender In - 01/11/2005 11:07 PM PDT Referred [...] is being seen by an orthopedist in [place]. She brings her brace today which she states is going well. The patient, however, yesterday awoke with neck stiffness and pain with spasming type pains in the area of her neck. She was seen in the emergency room last night in [place] for injection after a migraine. She states [...] Jesus M.D. Domingo Lozoya M.D. Gokul P [id number] cc: Pedrito Gutierrez MD [address] [place], [place] [address]Ulpjbkjevwepow signed by Interface, Can Closing Machine Tender In at 5 11:07 PM PDTdocumented in this encounter Plan of Treatment Not on filedocumented as of this encounter Visit Diagnoses Not on filedocumented in this encounter"
--- OUTSIDE RECORDS SUMMARY | ~2019-10-16 | XMS | Encounter Summary ---
Demographics + + + | Address | [address] | | | [place] [address] | + + + | Home Phone [...] Providers + +------+ + | Care Telephone Station Repairer Name | Role | Phone | [...] as of this encounter Progress Notes Interface, Sustainability Officer In - 03/29/2005 5:05 AM PDT [id number] [facility] Date: 03/20/2005 Clinic: Rheumatology [...] and sense of disability is 5/10. Her heel caser needs a note from me that [...] for the diagnosis of fibromyalgia by the [employer]. She also has the [...] to treat restless legs. There is a forensic psychologist in [place] who is using large doses to reduce [...] 4 months. Caitlin Rivera M.S., F.N.P. / [id number] / [id number] / [id number] / [id number] cc: Pedrito Gutierrez M.D. [address] [place] [address] Belinda Meehan [address] [facility] [place] [address] Electronically signed by Caitlin Rivera 03-28-2005 01:43:14 PM documented i n this encounter Plan of Treatment Not on filedocumented as of this encounter Visit Diagnoses Not on filedocumented in this encounter"
--- OUTSIDE RECORDS SUMMARY | ~2019-10-16 | XMS | Encounter Summary ---
Demographics + + + | Address | [address] | | | [place] [address] | + + + | Home Phone [...] Team Providers + +------+ + | Care Pack Changer Name | Role | Phone | + [...] + + | 09/15/ | Office | [facility] | Emmy-Tajti, | Pain in right lower | | 2019 | Visit | MEDICINE [address] | MD [place] | leg (Primary Dx); | | | | [address] [place] | [address] [facility] | Fall in bathtub, | | | | [place] [address] | [place] [address] | initial encounter; | | | | [phone] | [phone] | Other osteoporosis | | | | [...] Luther Brito MD; Location: [facility] DILATION AND CURETTAGE OF UTERUS ELBOW SURGERY FINGER TRIGGER RELEASE 2002 FINGER TRIGGER RELEASE 2009 GASTRIC BYPASS SURGERY 2004 HYSTERECTOMY 05/14/1980 JOINT REPLACEMENT Bilateral 2007 2008 KNEE ARTHROSCOPY 2005 LAPAROSCOPY 01/27/2015 LAPAROTOMY 2008 ROTATOR CUFF REPAIR 2005 SPINE SURGERY TONSILLECTOMY 1964 UPPER GASTROINTESTINAL ENDOSCOPY N/A 12/18/2017 Procedure: EGD; Surgeon: Luther Brito MD; Location: [facility] CURRENT MEDICATIONS Current [...] (See Comments) Confused and questionable for seizures Negebnmhfr-Vkwd-Lbpkwfex Hives and Rash Cephalexin Hives Ciprofloxacin Hives [...] Note: Parts of this documentwere created using [employer] speech recognition software. As a r esult, [...] | | | | | [place] [address] | | | | | | [phone] | | | | | | | | +--------+ + + + + | 12/20/ | Office | Audiology | Elisabet Munson MS | | | 2019 | Visit | | [facility] [address] | | | | [address] [place] | | | | | | [place] [address] | | | | | | [phone] | | | | | | | | +--------+ + + + + | 12/20/ | Office | Otolaryngology | Ulysses Genao MD | | | 2019 | Visit | | [address] | | | | | | [address] [place], | | | | | | [place] [address] | | | | | | [phone] | | | | | | | [...]
--- OUTSIDE RECORDS SUMMARY | ~2019-10-16 | XMS | Encounter Summary ---
Demographics + + + | Address | [address] | | | [place] [address] | + + + | Home Phone [...] Team Providers + +------+ + | Care Helpdesk Administrator Name | Role | Phone | [...] of this encounter Progress Notes Interface, Business And Marketing Teacher In - 01/03/2006 3:02 AM [facility] [place] [address] [place], [place] [address] or November 01, 2002 Pedrito Gutierrez M.D. [facility] [address] [place] [id number] RE: BELINDA MEEHAN MR #: [id number] Dear Dr. Gutierrez: Belinda was seen in [...] be referred for bariatric surgery here at [facility]. We have several physicians who [...] Sincerely, Maurilio Estrada M.D. KRIS / SHARIF [id number] / [id number] / [id number] / Tdocumented in this encounter Plan of Treatment Not on filedocumented as of this encounter Visit Diagnoses Not on filedocumented in this encounter"
--- OUTSIDE RECORDS SUMMARY | ~2019-10-16 | XMS | Encounter Summary ---
Demographics + + + | Address | [address] | | | [place] [address] | + + + | Home Phone [...] Providers + +------+ + | Care Painting Instructor Name | Role | Phone | [...]
--- OUTSIDE RECORDS SUMMARY | ~2019-10-16 | XMS | Encounter Summary ---
Demographics + + + | Address | [address] | | | [place] [address] | + + + | Home Phone [...] Providers + +------+ + | Care News Broadcaster Name | Role | Phone | + [...] of this encounter Progress Notes Interface, Corporate Real Estate Specialist In - 01/12/2005 8:09 AM PDT [id number] [facility] Date: 03/07/2004 Clinic: [facility] TELEPHONE CONVERSATION Subjective: Belinda contacted [...] cholelithiasis. She is welcome to come to [facility] for evaluation; however, given the distance of a 4-hour travel time, we found it would be more expeditious for her to be seen at her local hospital in [place]. The patient also agrees with this plan [...] additional followup as needed. Christie Kirkpatrick / [id number] / [id number] / [id number] / documented i n this encounter Plan of Treatment Not on filedocumented as of this encounter Visit Diagnoses Not on filedocumented in this encounter"
--- OUTSIDE RECORDS SUMMARY | ~2019-10-16 | XMS | Encounter Summary ---
Demographics + + + | Address | [address] | | | [place] [address] | + + + | Home Phone [...] Providers + +------+ + | Care Senior Lead Developer Name | Role | Phone [...] | [address] | [facility] | Pre-Operative | | | | [address] | [facility] | Examination (Primary | | | | Mailcode: PV430 | [address] | Dx) | | | | Physician's Pavilion | [address] [place], | | | | | [place], [place] | [place] [address] | | | | | [address] | [phone] | | | | | [phone] | | | +--------+---------+ + + + [...] surgeries scheduled to take place on the [place] at the [facility]: Surgeries scheduled in the [facility] ([address] [place] [address]): registration is located on the 4th floor of [facility] (Day Surgery). Surgeries scheduled in the [facility]: registration is located on the 9th floor. Surgeries scheduled in [facility]: registration is located on the 6th floor. Surgeries scheduled in the [facility]: registration is located i n the [facility] on the first floor. For surgeries scheduled to take place at the [facility]: registration is l ocated on the [...] you use specialized medical equipment at [facility], please check with your provider before [...] surgeries scheduled to take place on the [place] at the [facility]: Surgeries scheduled in the [facility] ( North): registration is located on the 4th floor of [facility] (Day Surgery). Surgeries scheduled in the [facility]: registration is located on the 9th floor. Surgeries scheduled in [facility]: registration is located on the 6th floor. Surgeries scheduled in the [facility]: registration is located i n the [facility] on the first floor. For surgeries scheduled to take place at the [facility]: registration is l [...] you use specialized medical equipment at [facility], please check with your provider before [...] Overview Note: Surgery 05/15/08 Dr Ricky Garnett [place] JEY karlos to get operative reports Osteopenia [...] 08/2007 right knee Hx lumbar fusion 05/2008 L5-L7oaikdg with bone spur removals Hx appendectomy Hx [...] Morphine IM ( only in [facility]) made gut pain worse 08/27/06: Trial of oral MSIR caused leg swelling Clarithromycin Hives Mainly in the legs Rwixfui-cczkugsgmb-mle-caff Balance problems Amitriptyline Grand mal seizures Fioricet W/codeine (Yvm-fcdrnxviec-crinaifxlb-caf) FAMILY HISTORY: Family History Problem Relation Cancer [...] | | | DEPARTMENT | | | [place] | | | OF | | | [...] + | [facility] | [address] | [place] [address] | | | PATHOLOGY | [address] | | | + + + + + | [facility] DEPARTMENT OF | [address] | [place] [address] | | | PATHOLOGY | [address] [...] DEPARTMENT OF | [address] | [place] [address] | | | PATHOLOGY | [address] | | | + + + + + | [facility] | [address] | [place] [address] | | | PATHOLOGY | [address] | | | + + + + + documented in this encounter Visit Diagnoses + + | Diagnosis | + + | Other specified pre-operative examination - Primary | + + documented in this encounter
--- OUTSIDE RECORDS SUMMARY | ~2019-10-16 | XMS | Encounter Summary ---
Demographics + + + | Address | [address] | | | [place] [address] | + + + | Home Phone [...] Providers + +------+ + | Care Rack Puncher Name | Role | Phone | [...] [id number] | | | | | | [place], [place] | | | | | | [address] | | | | | | [phone] | | | +--------+ + + + [...]
--- OUTSIDE RECORDS SUMMARY | ~2019-10-16 | XMS | Encounter Summary ---
Demographics + + + | Address | [address] | | | [place] [address] | + + + | Home Phone [...] + +------+ + | Care Manager Life Name | Role | Phone | + [...] | | sciatica | [address] | [address] | | | | | Lumbar | [place], | Phone: | | | | | stenosis | [place] | [phone] | | | | | Opiate | [address] | Fax: | | | | | dependence, | Phone: | [phone] | | | | | continuous | [phone] | | | | | | (HCC) | Fax: | | | | | | | [phone] | | +--------+ + + + + + Reason for Visit + + + | Reason | Comments | + + + | Medication Refill | | + + + Encounter Details +--------+---------+ + + + | Date | Type | Department | Care Team | Description | +--------+---------+ + + + | 02/23/ | Office | [facility] | Emmy[place], | B12 deficiency | | 2017 | Visit | MEDICINE [address] [place] [address] | MD Petrona | (Primary Dx); | | | | [facility] | [address] [place] [address] | Chronic bilateral | | | | [place] [address] | [place] [address] | low back pain | | | | [phone] | without sciatica; | | | | [...] AM PDTWe are referr ing you to [facility] in [place]. B12 shot today. documented in this encounter [...] interested in seein a pain clinic in [facility] as she is an [place] [...] Chronic pain COPD (chronic obstructive pulmonary disease) ([facility]) Depression Diarrhea Dumping syndrome Fibromyalgia Hyperparathyroidism ([facility]) Hypothyroidism IBS (irritable bowel syndrome) Lumbar radiculopathy primarily right 01/04/2015 Meniere syndrome Migraine Migraines Obesity OLIVER (obstructive sleep apnea) Osteoarthritis, generalized Osteopenia Osteoporosis Peripheral neuropathy ([facility]) Rheumatoid arthritis ([facility]) Right arm pain 01/04/2015 RLS (restless legs syndrome) S/P lumbar fusion 01/04/2015 Scoliosis Stroke ([facility]) Syncope Tremor FAMILY HISTORY Family [...] Reactions Levofloxacin Hives and Itching Amitriptyline Hcl Isnqoifurl-Ficr-Ofmaiqoc Cephalexin Ciprofloxacin Clarithromycin Clindamycin Hcl Codeine Sulfate [...] | | | | | [place] [address] | | | | | | [phone] | | | | | | | | +--------+ + + + + | 12/20/ | Office | Audiology | Elisabet Munson MS | | | 2019 | Visit | | [facility] [address] | [address] [place] | | | | | | [place] [address] | | | | | | [phone] | | | | | | | | +--------+ + + + + | 12/20/ | Office | Otolaryngology | Ulysses Genao MD | | | 2019 | Visit | | [address] | | | | | | [address] [place], | | | | | | [place] [address] | | | | | | [phone] | | | | | | | [...]
--- OUTSIDE RECORDS SUMMARY | ~2019-10-16 | XMS | Encounter Summary ---
Demographics + + + | Address | [address] | | | [place] [address] | + + + | Home Phone [...] + + | 06/25/ | Telephone | [facility] | Alanis, | Illness | | 2018 | | MEDICINE [address] [place] [address] | MD [place] | | | | | [facility] | [address] [place] [address] | | | | | [place] [address] | [place] [address] | | | | | [phone] | [phone] | | | | | | | [...] | | | | | [place] [address] | | | | | | [phone] | | | | | | | | +--------+ + + + + | 12/20/ | Office | Audiology | Elisabet Munson MS | | 2019 | Visit | | [facility] [address] | | | | | [address] [place] | | | | | | [place] [address] | | | | | | [phone] | | | | | | | | +--------+ + + + + | 12/20/ | Office | Otolaryngology | Ulysses Genao MD | | | 2020 | Visit | | [address] | | | | | | [address] [place], | | | | | | [place] [address] | | | | | | [phone] | | | | | | | | +--------+ + + + + documented as of this encounter Visit Diagnoses Not on filedocumented in this encounter"
--- OUTSIDE RECORDS SUMMARY | ~2019-10-16 | XMS | Encounter Summary ---
Demographics + + + | Address | [address] | | | [place] [address] | + + + | Home Phone [...] Team Providers + +------+ + | Care Unit Tender Name | Role | Phone | [...] | 2006 | Visit | [facility] | MD Darrion,PhD [address] | Deconditioning; | | | | for Health and | [address] | Physical | | | | Healing [address] | [place], [place] | Deconditioning | | | | Ave Mailcode: | [address] | | | | | CH12A | [phone] | | | | | Health and Healing, | | | | | | [facility] | | | | | | Floor [place], [place] | | | | | | [address] | | | | | | [phone] | | | +--------+---------+ + + + [...] and neurology assessment. Angel Morales M.D., Ph.D. Roof Assembler, Surgical Well Logging Captain Mud Analysis Orthopedics & Cartilage Reconstruction Surgery Department of [email or web address] [email or web address] documented in this encou nter Plan of Treatment Not on filedocumented as of this encounter Visit Diagnoses + + | Diagnosis | + + | Muscular deconditioning Muscular wasting and disuse atrophy, not elsewhere classified | + + | Physical deconditioning Muscular wasting and disuse atrophy, not elsewhere classified | + + documented in this encounter"
--- OUTSIDE RECORDS SUMMARY | ~2019-10-16 | XMS | Encounter Summary ---
Demographics + + + | Address | [address] | | | [place] [address] | + + + | Home Phone [...] Providers + +------+ + | Care Vacuum Applicator Operator Name | Role | Phone | [...] | | | | | Procedures | [facility] | Mailcode: | | | | | CONSULT TO | Rd | [facility] | | | | | NEUROLOGY | [place], [place] | for Health | | | | | | [address] | and Healing, | | | | | | Phone: | Building 1, | | | | | | [phone] | 8th Floor | | | | | | | [place], [place] | | | | | | | [address] | | | | | | | Phone: | | | | | | | [phone] | | | | | | | Fax: | | | | | | | [phone] | +--------+--------+ + + + + Encounter Details +--------+---------+ + + + | Date | Type | Department | Care Team | Description | +--------+---------+ + + + | 03/24/ | Office | Neurology at | Taniya Guerrero, | Migraine Headache | | 2007 | Visit | [facility] & | | (Primary Dx) | | | | Healing [address] | | | | | | [place] Mailcode: [facility] | | | | | | [facility] | | | | | | and Healing, | | | | | | Building | | | | | | Floor [place], [place] | | | | | | [address] | | | | | | [phone] | | | +--------+---------+ + + + [...] low blood pressure. 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 Social History Main Topics [...] touch symmetrically throughout. Cerebellar testing shows normal wpylqb-au-rtnn and finger tapping. On gait testing, she [...] the names of 3 headache specialists in [place]- Dr. Koby García, Dr. Dakota Sweet and [...]
--- OUTSIDE RECORDS SUMMARY | ~2019-10-16 | XMS | Encounter Summary ---
Demographics + + + | Address | [address] | | | [place] [address] | + + + | Home Phone [...] Providers + +------+ + | Care Section Supervisor Name | Role | Phone | [...] as of this encounter Progress Notes Interface, Continuous Process Tanner Rotary Drum In - 10/30/2005 2:06 AM PDT [id number] GEOVANNI Barnes [id number] Clinic Date: 10/23/2005 Clinic: Ms. Meehan comes in today for followup of her abdominal CT. The CT is normal. We will follow her for abdominal pain. I will see her again in 3 months. If she has exacerbation, she can come earlier. I also gave her 30 tablets of 5 mg oxycodone for the pain. Chris Padgett M.D. CD / [id number] / [id number] / [id number] / Electronically signed by Chris Padgett 10-29-2005 10:10:39 AM documented i n this encounter Plan of Treatment Not on filedocumented as of this encounter Visit Diagnoses Not on filedocumented in this encounter"
--- OUTSIDE RECORDS SUMMARY | ~2019-10-16 | XMS | Encounter Summary ---
[...] Team Providers + +------+ + | Care Laundry Tech Name | Role | Phone | [...] + + | 09/14/ | Telephone | [facility] | Alanis, | Referral | | 2017 | | MEDICINE [address] [place] [address] | MD [place]rona | | | | | [facility] | [address] [place] [address] | | | | | [place] [address] | [place] [address] | | | | | [phone] | [phone] | | | | | | | [...] | | | | | [place] [address] | | | | | | [phone] | | | | | | | | +--------+ + + + + | 12/20/ | Office | Audiology | Elisabet Munson MS | | 2019 | Visit | | [facility] [address] | | | | | | [address] | | | | | | [place] [address] | | | | | | [phone] | | | | | | | | +--------+ + + + + | 12/20/ | Office | Otolaryngology | Ulysses Genao MD | | | 2020 | Visit | | [address] | | | | | | [address] [place], | | | | | | [place] [address] | | | | | | [phone] | | | | | | | | +--------+ + + + + documented as of this encounter Visit Diagnoses Not on filedocumented in this encounter"
--- OUTSIDE RECORDS SUMMARY | ~2019-10-16 | XMS | Encounter Summary ---
Demographics + + + | Address | [address] | | | [place] [address] | + + + | Home Phone [...] + + | 03/08/ | Telephone | [facility] | Alanis, | Hospitalization | | 2017 | | MEDICINE [address] [place] [address] | MD [place] | | | | | [facility] | [address] [place] [address] | | | | | [place] [address] | [place] [address] | | | | | [phone] | [phone] | | | | | | | [...] REGION | | | | | | [place] [address] | | | | | | [phone] | | | | | | | | +--------+ + + + + | 12/20/ | Office | Audiology | Elisabet Munson MS | | | 2019 | Visit | | [facility] [address] | | | | | | [address] [place] | | | | | | [place], [place] [address] | | | | | | [phone] | | | | | | | | +--------+ + + + + | 12/20/ | Office | Otolaryngology | Ulysses Genao MD | | | 2019 | Visit | | [address] [place] | | | | | | [address] [place], | | | | | | [place] [address] | | | | | | [phone] | | | | | | | | +--------+ + + + + documented as of this encounter Visit Diagnoses Not on filedocumented in this encounter"
--- OUTSIDE RECORDS SUMMARY | ~2019-10-16 | XMS | Encounter Summary ---
Demographics + + + | Address | [address] | | | [place] [address] | + + + | Home Phone [...] Providers + +------+ + | Care Crew Lead Name | Role | Phone | [...] + + | 10/13/ | Telephone | [facility] | Alanis, | Appointment Question | 2019 | | MEDICINE [address] [place] [address] | MD Petrona | | | | | [facility] | [address] [place] [address] | | | | | [place] [address] | [place] [address] | | | | | [phone] | [phone] | | | | | | | [...] | | | | | [place] [address] | | | | | | [phone] | | | | | | | | +--------+ + + + + | 12/20/ | Office | Audiology | Elisabet Munson MS | | | 2019 | Visit | | [facility] [address] | | | | | | [address] [place] | | | | | | [place] [address] | | | | | | [phone] | | | | | | | | +--------+ + + + + | 12/20/ | Office | Otolaryngology | Ulysses Genao MD | | | 2019 | Visit | | [address] | | | | | | [address] [place], | | | | | | [place] [address] | | | | | | [phone] | | | | | | | | +--------+ + + + + documented as of this encounter Visit Diagnoses Not on filedocumented in this encounter"
--- OUTSIDE RECORDS SUMMARY | ~2019-10-16 | XMS | Encounter Summary ---
Demographics + + + | Address | [address] | | | [place] [address] | + + + | Home Phone [...] Team Providers + +------+ + | Care Duplicating Machine Servicer Name | Role | Phone | + +------+ + | Sulaiman Carrera MD | PCP | | + +------+ + Encounter Details +--------+ + + + + | Date | Type | Department | Care Team | Description | +--------+ + + + + | 01/29/ | Ancillary | Registration 3181 | Beto Meeks MD | | | 2005 | Registratio | [facility] | [address] | | | | n | [place] Mailcode: RPB07 | [place], [place] | | | | | [place], [place] | [address] | | | | | [address] | [phone] | | | | | [phone] | | | +--------+ + + + [...] | | | | Test performed by [facility] | | | | | [...] [facility] | [address] | [place], [place] | | | [facility] | | [address] | | + + + + + [...] + + + | [facility] | [address] | [place] [address] | | | LABORATORY | | | [...] BASO # | 0.0 | <0.3 | [facility] | | | | | | DEPARTMENT [...] [facility] DEPARTMENT OF | [address] [facility] [address] [address] [address] | [place] [address] | | | PATHOLOGY | [address] | | | + + + + + | [facility] DEPARTMENT OF | [address] | [place] [address] | | | PATHOLOGY | [address] [...] DEPARTMENT OF | [address] | [place], [place] [address] | | | PATHOLOGY | [address] | | | + + + + + | [facility] DEPARTMENT OF | [address] | [place] [address] | | | PATHOLOGY | [address] [...] Performed At | + + + | [id number] Estimated GFR > 60 mL/min/1.73 sq m if non- | [facility] | | [id number] Estimated GFR > 60 mL/min/1.73 sq m [...] DEPARTMENT OF | [address] | [place] [address] | | | PATHOLOGY | [address] | | | + + + + + | [facility] DEPARTMENT OF | [address] | [place] [address] | | | PATHOLOGY | [address] | | | + + + + + documented in this encounter Visit Diagnoses Not on filedocumented in this encounter"
--- OUTSIDE RECORDS SUMMARY | ~2019-10-16 | XMS | Encounter Summary ---
Demographics + + + | Address | [address] | | | [place] [address] | + + + | Home Phone [...] Providers + +------+ + | Care Floor Covering Layer Name | Role | Phone | [...] Pavilion | | | | | | [place], [place] | | | | | | [address] | | | | | | [phone] | | | +--------+ + + + [...]
--- OUTSIDE RECORDS SUMMARY | ~2019-10-16 | XMS | Encounter Summary ---
Demographics + + + | Address | [address] | | | [place] [address] | + + + | Home Phone [...] Team Providers + +------+ + | Care Mattress Renovator Name | Role | Phone | [...] as of this encounter Progress Notes Byron, Dishcloth Folder In - 01/12/2005 6:46 AM PDTClinic Date: [...] months. Chris Padgett M.D. CD / HS [id number] / [id number] / [id number] / Tdocumented in this encounter Plan of Treatment Not on filedocumented as of this encounter Visit Diagnoses Not on filedocumented in this encounter"
--- OUTSIDE RECORDS SUMMARY | ~2019-10-16 | XMS | Encounter Summary ---
Demographics + + + | Address | [address] | | | [place] [address] | + + + | Home Phone [...] Providers + +------+ + | Care Transport Manager Name | Role | Phone | [...] + | 10/11/ | Telephone | [facility] | Alanis, | LABS | | 2019 | | MEDICINE [address] [place] [address] | MD Petrona | | | | | [facility] | [address] [place] [address] | | | | | [place] [address] | [place] [address] | | | | | [phone] | [phone] | | | | | | | [...] | | | | | [place] [address] | | | | | | [phone] | | | | | | | | +--------+ + + + + | 12/20/ | Office | Audiology | Elisabet Munson MS | | 2019 | Visit | | [facility] [address] | | | | | [address] [place] | | | | | | [place] [address] | | | | | | [phone] | | | | | | | | +--------+ + + + + | 12/20/ | Office | Otolaryngology | Ulysses Genao MD | | | 2019 | Visit | | [address] [facility] | | | | | | [address] [place], | | | | | | [place] [address] | | | | | | [phone] | | | | | | | | +--------+ + + + + documented as of this encounter Visit Diagnoses + + | Diagnosis | + + | Osteoporosis, unspecified osteoporosis type, unspecified pathological fracture | | presence - Primary | + + documented in this encounter"
--- OUTSIDE RECORDS SUMMARY | ~2019-10-16 | XMS | Encounter Summary ---
Demographics + + + | Address | [address] | | | [place] [address] | + + + | Home Phone [...] Providers + +------+ + | Care Artificial Log Machine Operator Name | Role | Phone [...]
--- OUTSIDE RECORDS SUMMARY | ~2019-10-16 | XMS | Encounter Summary ---
Demographics + + + | Address | [address] | | | [place] [address] | + + + | Home Phone [...] Providers + +------+ + | Care Rail Car Repairman Name | Role | Phone [...] | | | | | Procedures | [facility] [place] | [address] | | | | | CONSULT TO | [address] | for Health | | | | | BONE | Phone: | and Healing, | | | | | DENSITOMETRY | [phone] | Building [address] | | | | | | Fax: | [place], [place] | | | | | | [phone] | [address] | | | | | | | Phone: | | | | | | | [phone] | | | | | | | Fax: | | | | | | | [phone] | +--------+ + + + + + [...] | | | [facility] | [place], [place] | Bypass for Obesity | | | | and Healing, | [address] | | | | | [facility] | [phone] | | | | | Floor [place], [place] | | | | | | [address] | | | | | | [phone] | | | +--------+---------+ + + + [...] | UGI W SMALL | Radiologist 1: FLROINDA, | | | | | BOWEL W [...]
--- OUTSIDE RECORDS SUMMARY | ~2019-10-16 | XMS | Encounter Summary ---
Demographics + + + | Address | [address] | | | [place] [address] | + + + | Home Phone [...] Organization | [facility] | | | and [...] Providers + +------+ + | Care Vending Technician Name | Role | Phone | [...] | | right | [address] | [address] Phone: | | | | | supraspinatu | [place], | [phone] | | | | | s tendon, | [place] | Fax: | | | | | initial | [address] | [phone] | | | | | encounter | Phone: | | | | | | | [phone] | | | | | | | Fax: | | | | | | | [phone] | | +--------+ + + + + [...] Acute pain | [facility] | [address] | | | | | of right | i, | [place], | | | | | shoulder | [place] | [place] | | | | | Procedures | , MD [address] | [address] | | | | | MRI Shoulder | [address] | Phone: | | | | | Right wo | [place], | [phone] | | | | | Contrast | [place] | Fax: | | | | | | [address] | [phone] | | | | | | Phone: | | | | | | | [phone] | | | | | | | Fax: | | | | | | | [phone] | | +--------+--------+ + + + + [...] + + | 01/15/ | Office | [facility] | Alanis, | Acute pain of right | | 2017 | Visit | MEDICINE [address] [place] [address] | MD [place]ron[place] | shoulder (Primary | | | | [facility] | [address] | Dx); Chronic | | | | [place] [address] | [place] [address] | diarrhea; Fatty | | | | [phone] | [phone] | liver; S/P bariatric | | | [...] Location: [facility] MEDICAL PROCEDURE UNIT CURRENT MEDICATIONS [...] (See Comments) Confused and questionable for seizures Gsgqayofcx-Fkbu-Vynomsym Hives and Rash Cephalexin Hives Ciprofloxacin Hives [...] Note: Parts of this documentwere created using [employer]io[employer] speech recognition software. As a r esult, [...] | | | | | [address] | | | | | | [place] [address] | | | | | | [phone] | | | | | | | | +--------+ + + + + | 12/20/ | Office | Audiology | Elisabet Munson MS | | | 2019 | Visit | | [facility] [address] | | | | | [address] [place] | | | | | | [place] [address] | | | | | | [phone] | | | | | | | | +--------+ + + + + | 12/20/ | Office | Otolaryngology | Ulysses Genao MD | | | 2019 | Visit | | [address] | | | | | | [address] [place], | | | | | | [place] [address] | | | | | | [phone] | | | | | | | [...]
--- OUTSIDE RECORDS SUMMARY | ~2019-10-16 | XMS | Encounter Summary ---
Demographics + + + | Address | [address] | | | [place] [address] | + + + | Home Phone [...] Providers + +------+ + | Care Bean Picker Name | Role | Phone | + +------+ + | [place] Thapa | PCP | | | MD | | | + +------+ + Encounter Details +--------+ + + + + | Date | Type | Department | Care Team | Description | +--------+ + + + + | 07/16/ | Orders Only | [facility] | Alanis, | | | 2017 | | MED CTR OP INFUSION | MD [place] | | | | | [address] | [address] [facility] | | | | | [place] | [place] [address] | | | | | [address] | [phone] | | | | | [phone] | | | +--------+ + + + [...] | | | | | [place] [address] | | | | | | [phone] | | | | | | | | +--------+ + + + + | 12/20/ | Office | Audiology | Elisabet Munson MS | | | 2019 | Visit | | [facility] | | | | | | [address] [place] [address] [place] | | | | | | [place] [address] | | | | | | [phone] | | | | | | | | +--------+ + + + + | 12/20/ | Office | Otolaryngology | Ulysses Genao MD | | | 2020 | Visit | | [address] [facility] | | | | | | [address] [place], | | | | | | [place] [address] | | | | | | [phone] | | | | | | | | +--------+ + + + + documented as of this encounter Visit Diagnoses Not on filedocumented in this encounter"
--- OUTSIDE RECORDS SUMMARY | ~2019-10-16 | XMS | Encounter Summary ---
Demographics + + + | Address | [address] | | | [place] [address] | + + + | Home Phone [...] Providers + +------+ + | Care Oyster Shipper Name | Role | Phone | + [...] | | | Ave Mailcode: CH4S | [facility] | | | | | [facility] | [place], [place] | | | | | and Healing, | [address] | | | | | [place] [address] [facility] | [phone] | | | | | Floor [place], [place] | | | | | | [address] | | | | | | [phone] | | | +--------+ + + + [...]
--- OUTSIDE RECORDS SUMMARY | ~2019-10-16 | XMS | Encounter Summary ---
Demographics + + + | Address | [address] | | | [place] [address] | + + + | Home Phone [...] Team Providers + +------+ + | Care Corncob Pipes Assembler Name | Role | Phone | [...] | | | | pain | [place] | [facility] [address] | | | | | Procedures | [address] [place] | [address] | | | | | CONSULT TO | [place], [place] | [place], [place] | | | | | GI PROCEDURE | [address] | [address] | | | | | UNIT: | Phone: | | | | | | COLONOSCOPY | [phone] | | | | | | | Fax: | | | | | | | [phone] | | + + + + + [...] | | | | Mailcode: L223A | [place], [place] | | | | | [facility] | [address] | | | | | [address] [place], [place] | [phone] | | | | | [address] | | | | | | [phone] | | | +--------+---------+ + + + [...] Ms. Meehan has been seen in the [facility] emergency dept twice in the last [...] [facility] | [address] | [place], [place] | | | [facility] | | [address] | | + + + + + documented in this encounter Visit Diagnoses + + | Diagnosis | + + | Chronic abdominal pain - Primary Abdominal pain, unspecified site | + + documented in this encounter
--- OUTSIDE RECORDS SUMMARY | ~2019-10-16 | XMS | Encounter Summary ---
Demographics + + + | Address | [address] | | | [place] [address] [...] Team Providers + +------+ + | Care Greenskeeper Name | Role | Phone | + [...] | Other | | 2008 | | [place] [address] | [address] | | | | | [place] Mailcode: CH4S | [address] | | | | | [facility] | [place], [place] | | | | | and Healing, | [address] | | | | | [place] [address], [facility] | [phone] | | | | | Floor [place], [place] | | | | | | [address] | | | | | | [phone] | | | +--------+ + + + [...]
--- OUTSIDE RECORDS SUMMARY | ~2019-10-16 | XMS | Encounter Summary ---
Demographics + + + | Address | [address] | | | [place] [address] | + + + | Home Phone [...] Team Providers + +------+ + | Care Comic Book Writer Name | Role | Phone | [...] Rom results of | | | | [facility] | | several radiology | | | | [address] | | studies) | | | | Mailcode: CH15P | | | | | | [facility] | | | | | | and Healing, | | | | | | Building | | | | | | Floor [place], [place] | | | | | | [address] | | | | | | [phone] | | | +--------+ + + + [...] | + +--------+ + + + | [place] MRI LOWER EXTREM | Routin | 08/22/2005 [...] | + +--------+ + + + | [place] MRI LOWER EXTREM | Routin | 03/05/2005 [...] + | NAME: BELINDA MEEHAN MR #: [id number] | [facility] | | DATE OF EXAM: [...] Armaan Rivera | | | H : [id number] : 1442 Approved By: Radiologist: | | + + + + + + + + | Performing | Address | City/State/Zipcode | Phone Number | | Organization | | | | + + + + + | [facility] | [address] | [place], [place] | | | [place] [facility] CARE | [address] | [address] | | | TESTS | | | | + + + + + | [facility] | [address] | [place], [place] | | | TESTS | [address] | [address] | | + + + + + [...] [facility] | [address] | [place], [place] | | | [place] [facility] | [facility] | [address] | | | TESTS | | | | + + + + + | [facility] | [address] | [place], [place] | | | TESTS | [facility] | [address] | | + + + + + [...] By: Armaan Mata : | | | [id number] : 1137 Approved By: | | + + + + + + + + | Performing | Address | City/State/Zipcode | Phone Number | | Organization | | | | + + + + + | [facility] | [address] | [place], [place] | | | [place] [facility]INT OF CARE | [address] | [address] | | | TESTS | | | | + + + + + | [facility] | [address] | [place], [place] | | | TESTS | [address] | [address] | | + + + + + MRI SPINE CERVICAL WO CONTRAST (10/01/2005) + + + | Impressions | Performed At | + + + | SPINE LUMBAR 2 VIEWS AT 1421 HOURS LUMBAR SPINE, 10/01/05 | [facility] | | HISTORY: Back pain. FINDINGS: AP and lateral views of the lumbar | CARE TESTS | | spine show five lvi-com-vbodjyl lumbar vertebrae in normal alignment | | [...] | SPONDYLOSIS. Transcribed By: Armaan Mata : [id number] : | | | 1402 Approved By: | | + + + + + + + + | Performing | Address | City[facility] | Phone Number | | Organization | | | | + + + + + | [facility] | [address] | [place], [place] | | | [place] | [address] | [address] | | | TESTS | | | | + + + + + | [facility] | [address] | [place], [place] | | | TESTS | [address] | [address] | | + + + + + [...] | | Transcribed By: Adriana Pacheco : [id number] : 1215 Approved By: | | | | | + + + + + + + + | Performing | Address | City/State/Zipcode | Phone Number | | Organization | | | | + + + + + | [facility] | [address] | [place], [place] | | | [facility] | [address] | [address] | | | TESTS | | | | + + + + + | [facility] | [address] | [place], [place] | | | TESTS | [address] | [address] | | + + + + + [place] MRI LOWER EXTREM JT, W/O CONTRAST (08/22/2005) + + + | Impressions | Performed At | + + + | LOWER EXTREMITY JOINT RT W/O AT 1619 HOURS RIGHT KNEE MRI, | [facility] | | 08/22/05 HISTORY: Chronic [...] + + | Performing | Address | City[facility] | Phone Number | | Organization | | | | + + + + + | [facility] | [address] | [place], [place] | | | [place] [facility] | [address] | [address] | | | TESTS | | | | + + + + + | [facility] | [address] | [place], [place] | | | TESTS | [address] | [address] | | + + + + + [...] | [address] | [place], [place] | | | [place] [facility] CARE | [address] | [address] | | | TESTS | | | | + + + + + | [facility] | [address] | [place], [place] | | | TESTS | [address] | [address] | | + + + + + [place] MRI LOWER EXTREM JT, W/O CONTRAST (03/05/2005) [...] | | | By: Armaan Mata : [id number] : 1416 Approved By: | | + + + + + + + + | Performing | Address | City/State/Zipcode | Phone Number | | Organization | | | | + + + + + | [facility] | [address] | [place], [place] | | | [facility] | [address] | [address] | | | TESTS | | | [...] Transcribed By: Armaan | | | Nicole Sanez : [id number] : [id number] Approved By: | | + + + + + + + + | Performing | Address | City/State/Zipcode | Phone Number | | Organization | | | | + + + + + | [facility] | [address] | [place], [place] | | | [facility] | [address] | [address] | | | TESTS | | | [...] Adriana | | | Aminata Pacheco : [id number] : [id number] Approved By: | | + + + + + + + + | Performing | Address | City/State/Zipcode | Phone Number | | Organization | | | | + + + + + | [facility] | [address] | [place], [place] | | | [facility] | [address] | [address] | | | TESTS | | | | + + + + + documented in this encounter Visit Diagnoses Not on filedocumented in this encounter"
--- OUTSIDE RECORDS SUMMARY | ~2019-10-16 | XMS | Encounter Summary ---
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 | | | | Therapy | Myalgia and | Rosi T, ANP | [facility] [address] | | | | | myositis, | [address] | | | | | unspecified | [address] | Mailcode: | | | | | LBP (low | [place], [place] | [facility] | | | | | back pain) | [address] | for Health | | | | | Chronic | | and Healing, | | | | | shoulder | | [address] | | | | | pain Muscle | | [place], [place] | | | | | strain | | [address] | | | | | Radicular | | Phone: | | | | | pain in left | | [phone] | | | | | arm Neck [...] | | pain | [place], [place] | [place], [place] | | | | | | [address] | [address] | | | | | | Phone: | | | | | | | [phone] | | | | | | | Fax: | | | | | | | [phone] | | +--------+--------+ + + + + Encounter Details +--------+---------+ + + + | Date | Type | Department | Care Team | Description | +--------+---------+ + + + | 04/05/ | Office | [facility] Comprehensive | Rosi Antonio, | LBP (low back pain) | | 2012 | Visit | Pain Center at | ANP | (Primary Dx); | | | | [facility] | | Fibromyalgia | | | | [address] | | syndrome 729.1; | | | | Mailcode: CH15P | | Encounter for | | | | [place] [facility] | | Long-Term (Current) | | | | and Healing, | | Use of Opioids; | | | | | | Chronic Bilateral | | | | Floor [place], [place] | | Shoulder Pain; | | | | [address] | | Muscle Strain hips; | | | | [phone] | | Radicular pain in | | [...] to discuss these treatment options. Consult to [facility] physical therapy: A supervised physical therapy [...] you have questions or concerns. NIHARIKA BERRIOS [facility] [address] Mail Code: [place] [address] documented in this encounter Progress Notes Rosi Antonio ANP - 04/05/2013 9:28 AM PDTFormatting of this note might be different fro m the original. [facility] Office Visit 04/05/2013 Belinda Meehan; ; : 1960 Ms. Meehan was referred for pain management consultation by Taqueria Raman NP [address] [place] [address] Chief Complaint Patient presents with New patient [...] to taper off gabapentin 2. Order for [facility] neurology Dr. Taniya Guerrero if falls [...] Dr. Lit Cintron in [place] at the 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 As part of today's visit the [facility] new patient questionnaire [...] you expect from your visits to the [facility] Pain [facility] ? Don't know [...] Overview Note: Surgery 05/15/08 Dr Ricky Garnett [facility] to get operative reports Osteopenia 08/24/2007 [...] will refer her to pain psychology, Dr. Andrse Ogden as she has worked with him [...] her lumbar surgeries and recently in [place]. She has short-term relief from the se treatments. I would like her to return to see Dr. Murali Montero to discuss these treatment options. Consult to [facility] physical therapy: A supervised physical therapy [...] is my privilege to be part of [facility] health care team. Pl ease free to contact me at any time if you have questions or concerns. I spent 30 minutes with the patient of which more than 50% was spent qmrau-xj-xhgz in [facility] pain questionnaire, medical record, consultation, discussion, addressing questions and counselling/education. [facility] Callum Kovacs Mail Code: [place] [id number] mith, Maris Lopez MA - 04/05/2013 8:25 [...]
--- OUTSIDE RECORDS SUMMARY | ~2019-10-16 | XMS | Encounter Summary ---
Demographics + + + | Address | [address] | | | [place] [address] | + + + | Home Phone [...] Providers + +------+ + | Care Parachute Crown Sewer Name | Role | Phone | + +------+ + | Maria Esther Cintron MD | PCP | | + +------+ + Encounter Details +--------+ + + + + | Date | Type | Department | Care Team | Description | +--------+ + + + + | 09/21/ | Telephone | [facility] | Chris Padgett, | | | 2008 | | [place] [address] | [address] [facility] | | | | | Bethanie Mailcode: CH4S | [address] | | | | | [facility] | [place], [place] | | | | | and Healing, | [address] | | | | | Building , 6th | [phone] | | | | | Floor [place], [place] | | | | | | [address] | | | | | | [phone] | | | +--------+ + + + [...]
--- OUTSIDE RECORDS SUMMARY | ~2019-10-16 | XMS | Encounter Summary ---
Demographics + + + | Address | [address] | | | [place] [address] [...] Providers + +------+ + | Care Staff Therapist Name | Role | Phone | [...] [address] | | | | | [facility] | [place], [place] | | | | | [address] | [address] | | | | | [address] | [phone] | | | | | Physician's Pavilion | | | | | | Physician's | | | | | | Pavilion [place], | | | | | | [place] [address] | | | | | | [phone] | | | +--------+--------+ + + + [...]
--- OUTSIDE RECORDS SUMMARY | ~2019-10-16 | XMS | Encounter Summary ---
Demographics + + + | Address | [address] | | | [place] [address] | + + + | Home Phone [...] Providers + +------+ + | Care Furniture Reproducer Name | Role | Phone | [...] + | 01/20/ | Refill | [facility] | Alanis, | Medication Refill | | 2017 | | MEDICINE [address] [place] [address] | MD Petrona | | | | | [facility] | [address] [place] [address] | | | | | [place] [address] | [place] [address] | | | | | [phone] | [phone] | | | | | | | [...] | | | | | [place] [address] | | | | | | [phone] | | | | | | | | +--------+ + + + + | 12/20/ | Office | Audiology | DarioElisabet ramires MS | | | 2019 | Visit | | [facility] [address] | | | | | | [address] [place] | | | | | | [place], [place] [address] | | | | | | [phone] | | | | | | | | +--------+ + + + + | 12/20/ | Office | Otolaryngology | Ulysses Genao MD | | | 2019 | Visit | | [address] | | | | | | [address] [place], | | | | | | [place] [address] | | | | | | [phone] | | | | | | | | +--------+ + + + + documented as of this encounter Visit Diagnoses Not on filedocumented in this encounter"
--- OUTSIDE RECORDS SUMMARY | ~2019-10-16 | XMS | Encounter Summary ---
Demographics + + + | Address | [address] | | | [place] [address] | + + + | Home Phone [...] Team Providers + +------+ + | Care Reexaminer Name | Role | Phone | + [...] as of this encounter Progress Notes Interface, Crucible Packer In - 01/12/2005 8:09 AM PDT [id number] [facility] Date: 10/23/2003 Clinic: Ms. [...] ahead. Chris Padgett M.D. CD / HS [id number] / [id number] / [id number] / [id number] documented i n this encounter Plan of Treatment Not on filedocumented as of this encounter Visit Diagnoses Not on filedocumented in this encounter"
--- OUTSIDE RECORDS SUMMARY | ~2019-10-16 | XMS | Encounter Summary ---
Demographics + + + | Address | [address] | | | [place] [address] | + + + | Home Phone [...] Providers + +------+ + | Care Commercial Sheet Metal Foreman Name | Role | Phone | + +------+ + | Sulaiman Carrera MD | PCP | | + +------+ + Encounter Details +--------+ + + + + | Date | Type | Department | Care Team | Description | +--------+ + + + + | 08/09/ | Hospital | Diagnostic Imaging | | | | 2013 | Encounter | Services at [facility] | | | | | | [address] | | | | | | Clementina Winkler SDWANG | | | | | | [facility] [address] [place] [address] | | | | | | [place], [place] | | | | | | [address] | | | | | | [phone] | | | +--------+ + + + [...]
--- OUTSIDE RECORDS SUMMARY | ~2019-10-16 | XMS | Encounter Summary ---
Demographics + + + | Address | [address] | | | [place] [address] | + + + | Home Phone [...] + + | 09/09/ | Telephone | [facility] | Alanis, | Phone Attempt | | 2019 | | MEDICINE [address] [place] [address] | MD Petrona | | | | | [facility] | [address] [place] [address] | | | | | [place] [address] | [place] [address] | | | | | [phone] | [phone] | | | | | | | [...] | | | | | [place] [address] | | | | | | [phone] | | | | | | | | +--------+ + + + + | 12/20/ | Office | Audiology | Elisabet Munson MS | | | 2019 | Visit | | [facility] [address] | | | | | [address] [place] | | | | | | [place] [address] | | | | | | [phone] | | | | | | | | +--------+ + + + + | 12/20/ | Office | Otolaryngology | Ulysses Genao MD | | | 2019 | Visit | | [address] | | | | | | [address] [place], | | | | | | [place] [address] | | | | | | [phone] | | | | | | | | +--------+ + + + + documented as of this encounter Visit Diagnoses Not on filedocumented in this encounter"
--- OUTSIDE RECORDS SUMMARY | ~2019-10-16 | XMS | Encounter Summary ---
Demographics + + + | Address | [address] | | | [place] [address] | + + + | Home Phone [...] Providers + +------+ + | Care Retort Load Expediter Name | Role | Phone | + +------+ + | Pedrito Gutierrez MD | PCP | | + +------+ + Encounter Details +--------+ + + + + | Date | Type | Department | Care Team | Description | +--------+ + + + + | 04/17/ | Telephone | [facility] Division of | Carlos Arreola, | | | 2005 | | Gastroenterology/Hep | [address] | | | | | atology [address] | | | | | [address] | [place] [address] | | | | | Mailcode: PV310 | [phone] | | | | | Physician's [address] | | | | | | [address] | | | | | | [place], [place] | | | | | | [address] | | | | | | [phone] | | | +--------+ + + + [...]
--- OUTSIDE RECORDS SUMMARY | ~2019-10-16 | XMS | Encounter Summary ---
Demographics + + + | Address | [address] | | | [place] [address] | + + + | Home Phone [...] Providers + +------+ + | Care Marketing Services Rep Name | Role | Phone | [...] as of this encounter Progress Notes Interface, Vb Developer In - 01/12/2005 9:01 AM PDT [id number] [facility] Date: 05/20/2004 Clinic: Morbid [...] Surgery Chris Padgett M.D. MS / HS [id number] / [id number] / [id number] / [id number] documented i n this encounter Plan of Treatment Not on filedocumented as of this encounter Visit Diagnoses Not on filedocumented in this encounter"
--- OUTSIDE RECORDS SUMMARY | ~2019-10-16 | XMS | Encounter Summary ---
Demographics + + + | Address | [address] | | | [place] [address] | + + + | Home Phone [...] Team Providers + +------+ + | Care Proofer Name | Role | Phone | + [...] Progress Notes Interface, Member Of The Legislative Council In - 07/09/2005 2:07 AM PST [id number] [facility] Date: 07/03/2005 Clinic: Ms. [...] be scheduling her for this operation. Chris aPdgett M.D. ROSA / [id number] / [id number] / [id number] / [id number] Electronically signed by Chris Padgett 07-08-2005 01:45:20 PM documented i n this encounter Plan of Treatment Not on filedocumented as of this encounter Visit Diagnoses Not on filedocumented in this encounter"
--- OUTSIDE RECORDS SUMMARY | ~2019-10-16 | XMS | Encounter Summary ---
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 1960 Start of Care: 06/23/2006 Referring Provider: [...] her today. Patient has multiple appts. At [facility] today, including a f/u regarding [...] + + +--------+ + + | ME MANUAL THER | Procedures | Routin | [...] + + +--------+ + + | ME THERAPEUTIC | Procedures | Routin | Cervical [...]
--- OUTSIDE RECORDS SUMMARY | ~2019-10-16 | XMS | Encounter Summary ---
Demographics + + + | Address | [address] | | | [place] [address] | + + + | Home Phone [...] + +------+ + | Care Voice Over Artist Name | Role | Phone | [...] | 09/04/ | Refill | [facility] | Alanis, | Medication Refill | | 2019 | | MEDICINE [address] | MD Petrona | | | | | [facility] | [address] [place] [address] | | | | | [place] [address] | [place] [address] | | | | | [phone] | [phone] | | | | | | | [...] | | | | | [place] [address] | | | | | | [phone] | | | | | | | | +--------+ + + + + | 12/20/ | Office | Audiology | DarioElisabet ramires MS | | | 2019 | Visit | | [facility] [address] | | | | [address] [place] | | | | | | [place], [place] [address] | | | | | | [phone] | | | | | | | | +--------+ + + + + | 12/20/ | Office | Otolaryngology | Ulysses Genao MD | | | 2019 | Visit | | [address] | | | | | | [address] [place], | | | | | | [place] [address] | | | | | | [phone] | | | | | | | | +--------+ + + + + documented as of this encounter Visit Diagnoses Not on filedocumented in this encounter"
--- OUTSIDE RECORDS SUMMARY | ~2019-10-16 | XMS | Encounter Summary ---
Demographics + + + | Address | [address] | | | [place] [address] | + + + | Home Phone [...] Team Providers + +------+ + | Care Sluice Tender Name | Role | Phone | [...] + | 08/23/ | Procedure | Kraig Tunrer | Marco Antonio Portillo MD | Bone Density Scan | | 2007 | | [facility] | [address] [facility] | | | | | [facility] | [address] [place], | | | | | [address] | [place] [address] | | | | | [address] | [phone] | | | | | Physician's | | | | | | Pavilion, 1st floor | | | | | | [place], [place] | | | | | | [address] | | | | | | [phone] | | | +--------+ + + + [...] | | + +---------+--------+ + + | [place] DXA BONE | Imaging | Routin | [...]
--- OUTSIDE RECORDS SUMMARY | ~2019-10-16 | XMS | Encounter Summary ---
[...] | | | | Mailcode: CR131 | [place], [place] | | | | | Outpatient Clinic | [address] | | | | | [facility], | [phone] | | | | | [place] [address] | | | | | | [phone] | | | +--------+ + + + [...] | | | | | 2,SERUM | [facility] | | | | | | Laboratories. | | | | + + + + + + + + | Specimen | + + | | + + + + + + + | Performing | Address | City/State/Zipcode | Phone Number | | Organization | | | | + + + + + | [facility] | [address] | [place] [address] | | | LABORATORY | | | | + + + + + documented in this encounter Visit Diagnoses Not on filedocumented in this encounter"
--- OUTSIDE RECORDS SUMMARY | ~2019-10-16 | XMS | Encounter Summary ---
Demographics + + + | Address | [address] | | | [place] [address] | + + + | Home Phone [...] Providers + +------+ + | Care Guidance Adviser Name | Role | Phone | [...] | | | | | | | [address]/[address] | | | | | | | [place] | | | | | | | Pavilion | | | | | | | [place], [place] | | | | | | | [address] | | | | | | | Phone: | | | | | | | [phone] | | | | | | | Fax: | | | | | | | [phone] | +--------+--------+ + + + + Encounter Details +--------+ + + + + | Date | Type | Department | Care Team | Description | +--------+ + + + + | 02/22/ | Hospital | [facility] [address] | Hai Hoyos, | | | 2008 | Encounter | [address] | | | | | | [address] [place] | | | | | | [place], | | | | | | [place] [address] | | | | | | [phone] | | | +--------+ + + + [...] Brief Hospital Course: Patient was admitted to [facility] short stay surgery. Patient was taken to the operating room f or above named procedure. Patient will be discharged to home once PACU criteria is met. Nguyễn ed's weight bearing status upon discharge is non [...] business hours at or page the orthopedist attraction worker after regular business hours at [phone]. If you have any of the following: [...] at . Follow Up Tests: (Tests at [facility] must be entered into Outcome Referrals) none Condition On Discharge: stable Vital Signs [...] Brief Hospital Course: Patient was admitted to [facility] short stay surgery. Patient was taken [...] business hours at or page the orthopedist attraction worker after regular business hours at [phone]. If you have any of the following: [...] appointment, please call our scheduling line at [phone]. Follow Up Tests: (Tests at [facility] must be entered into Epic) none [...] [facility] | [address] | [place] [address] | | | PATHOLOGY | [address] [...] [facility] | [address] | [place] [address] | | | PATHOLOGY | [address] [...] | | | | | performed at [place] | | | | | | Grady [...] [facility] | [address] | [place] [address] | | | PATHOLOGY | [address] [...] [facility] | [address] | [place] [address] | | | PATHOLOGY | [address] [...] | | | | | performed at [place] | | | | | | Grady [...] [facility] | [address] | [place] [address] | | | PATHOLOGY | [address] [...] [facility] | [address] | [place] [address] | | | PATHOLOGY | [address] [...] Lab) | | | | | | [facility] | | | | | | [address] [address] | | | | | [address] | | | | | | [place] [address] | | | | + + + + + + + + | Specimen | + + | | + + + + + + + | Performing | Address | City/State/Zipcode | Phone Number | | Organization | | | | + + + + + | [facility] | [address] | [place] [address] | | | PATHOLOGY | [address] [...] Performed At | + + + | [id number] | | | [id number] | | | GEOVANNI Barnes [id number] | | | Date: 02/22/2009 Attending Surgeon: | | | Hai Hoyos MD Small Battery Plate Assembler(s): | | | Shantel Whipple Preoperative | | | Diagnosis(es): Left symptomatic scapula lesion. Postoperative | | | Diagnosis(es): Left symptomatic scapula lesion. Procedures | | | Performed: 1. Curettage and bone grafting of the left scapular | | | lesion. 2. Open biopsy, left scapular lesion. | | | Donna Clancy served as my stores assistant because no other qualified | | [...] | aforementioned. MD ARTIS Wei / SHARIF [id number] / | | | [id number] / [id number] / | | + + + + + | Procedure Note | + + | Hai Hoyos MD - 02/22/2009 12:00 AM PDT [id number] | | [id number] [facility] | | [id number] Date: 02/22/2009 Attending Surgeon: Hai | | MD Romain Small Battery Plate Assembler(s): Raj Whipple. Preoperative | | Diagnosis(es):Left symptomatic scapula lesion. Postoperative Diagnosis(es):Left | | symptomatic scapula lesion. Procedures Performed:1. Curettage and bone grafting of | | the left scapular lesion.2. Open biopsy, left scapular lesion. Donna Clancy | | served as my stores assistant because no other qualified help wasavailable. [...] plan is as aforementioned. CHARU Wei / [id number] / [id number] / [id number] /D: | | 02/22/2009T: 02/22/2009 | | [...] |Hai Hoyos MD | |ZA / | |[id number] / [id number] / [id number] / | | | | | | [...] Argueta | | | | | | uLis Ai | | | | | | [...] DEPARTMENT OF | [address] | [place] [address] | | | PATHOLOGY | [address] | | | + + + + + | [facility] DEPARTMENT OF | [facility] | [place] [address] | | | PATHOLOGY | [address] [...]
--- OUTSIDE RECORDS SUMMARY | ~2019-10-16 | XMS | Encounter Summary ---
Demographics + + + | Address | [address] | | | [place] [address] | + + + | Home Phone [...] Team Providers + +------+ + | Care Final Dressing Cutter Name | Role | Phone | [...] Pain; Status Post | | | | [place], [place] | | Bariatric Surgery | | | | [address] | | | | | | [phone] | | | +--------+------+ + + + [...] Performed At | + + + | [id number] Estimated GFR > 60 mL/min/1.73 sq m if non- | [facility] | | [facility] [id number] Estimated GFR > 60 mL/min/1.73 sq m [...] + + + + + | [facility] | [address] | [place] [address] | | | PATHOLOGY | [address] | | | + + + + + | [facility] DEPARTMENT | [address] | [place] [address] | | | PATHOLOGY | [address] | | | + + + + + INR (08/28/2008 3:31 PM PDT) + + + + + + | Component | Value | Ref Range | Performed | Pathologist | | | | | At | Signature | + + + + + + | INR | 0.96Comment: | 0.90 - 1.20 INR | [facility] | | | | INR Therapeutic [...] + + + + + | [facility] | [address] [facility] | [place] [address] | | | PATHOLOGY | [address] | | | + + + + + | [facility] DEPARTMENT OF | [address] | [place] [address] | | | PATHOLOGY | [address] | | | + + + + + documented in this encounter Visit Diagnoses + + | Diagnosis | + + | Chronic abdominal pain Abdominal pain, unspecified site | + + | Status post bariatric surgery Bariatric surgery status | + + documented in this encounter"
--- OUTSIDE RECORDS SUMMARY | ~2019-10-16 | XMS | Encounter Summary ---
Demographics + + + | Address | [address] | | | [place] [address] | + + + | Home Phone [...] Team Providers + +------+ + | Care Soap Inspector Name | Role | Phone | [...] + | 07/14/ | Refill | [facility] | Alanis, | Medication Refill | | 2017 | | MEDICINE [address] [place] [address] | MD Petrona | | | | | [facility] | [address] [place] [address] | | | | | [place] [address] | [place] [address] | | | | | [phone] | [phone] | | | | | | | [...] | | | | | [address] [place] | | | | | | [place] [address] | | | | | | [phone] | | | | | | | | +--------+ + + + + | 12/20/ | Office | Audiology | DarioElisabet ramires MS | | | 2019 | Visit | | [facility] [address] | | | | [address] [place] | | | | | | [place], [place] [address] | | | | | | [phone] | | | | | | | | +--------+ + + + + | 12/20/ | Office | Otolaryngology | Ulysses Genao MD | | | 2019 | Visit | | [address] | | | | | | [address] [place], | | | | | | [place] [address] | | | | | | [phone] | | | | | | | | +--------+ + + + + documented as of this encounter Visit Diagnoses Not on filedocumented in this encounter"
--- OUTSIDE RECORDS SUMMARY | ~2019-10-16 | XMS | Encounter Summary ---
Demographics + + + | Address | [address] | | | [place] [address] | + + + | Home Phone [...] Team Providers + +------+ + | Care Platform Builder Name | Role | Phone | [...] | | CONSULT TO | Rd | [address] | | | | | NEUROLOGY | [place], [place] | for Health | | | | | | [address] | and Healing, | | | | | | Phone: | Building 1, | | | | | | [phone] | [facility] Floor | | | | | | | [place], [place] | | | | | | | [address] | | | | | | | Phone: | | | | | | | [phone] | | | | | | | Fax: | | | | | | | [phone] | +--------+--------+ + + + + Reason [...] | | | [facility] | [place], [place] | Weak; | | | | [address] | [address] | Migraine Headache | | | | [address] | [phone] | | | | | [facility] | | | | | | Physician's | | | | | | Pavilion [place], | | | | | | [place] [address] | | | | | | [phone] | | | +--------+---------+ + + + [...] oral route once daily, Disp: , Rfl: ngzgerfibf-uqenqmyedohnj-dpvbdhqq (FIORICET) 50-325-40 mg Oral Tablet, take 2 [...] LE edema Results for BELINDA MEEHAN Molly (ID#[id number]) as of 03/01/2008 9:22:28 PM Ref. Range [...] K/cu mm 220 Results for BELINDA MEEHAN (ID#[id number]) as of 03/01/2008 9:22:28 PM Ref. Range [...] continue to discuss with her options at [facility] with, hopefully, coordin ation of services. [...] + + | [facility][1] | [facility] | [place] [address] | | | PATHOLOGY | [address] | | | + + + + + | [place] DEPARTMENT OF | [address] | [place] [address] | | | PATHOLOGY | [address] [...] Performed At | + + + | [id number] Estimated GFR > 60 mL/min/1.73 sq m if non- | [facility] | | [place] [id number] Estimated GFR > 60 mL/min/1.73 sq m if | DEPARTMENT OF | | [place] GFR is estimated using the MDRD equation [...] + | [facility][1] | [address] [facility] | [place] [address] | | | PATHOLOGY | [address] | | | + + + + + | [facility][1] | [address] [facility] | [place] [address] | | | PATHOLOGY | [address] [...] change effective | | | 04/05/07 [facility] ([facility]) | | | [facility] [address] [place] [facility] | | | [place] [address] | | + + + + + + + + | Performing | Address | City/State/Zipcode | Phone Number | | Organization | | | | + + + + + | [facility] | [address] | [place] [address] | | | LABORATORY | [...] change effective | | | 04/05/07 [facility] ([facility]) | | | [facility] [place] [address] [place] [facility] | | | [place] [address] | | + + + + + + + + | Performing | Address | City/State/Zipcode | Phone Number | | Organization | | | | + + + + + | [facility] | [address] | [place] [address] | | | LABORATORY | | | [...]
--- OUTSIDE RECORDS SUMMARY | ~2019-10-16 | XMS | Encounter Summary ---
Demographics + + + | Address | [address] | | | [place] [address] | + + + | Home Phone [...] Providers + +------+ + | Care Insulation Estimator Name | Role | Phone | [...] + | 05/01/ | Refill | [facility] | Alanis, | Medication Refill | | 2017 | | MEDICINE [address] [place] [address] | MD Petrona | | | | | [facility] | [address] [place] [address] | | | | | [place] [address] | [place] [address] | | | | | [phone] | [phone] | | | | | | | [...] | | | | | [place] [address] | | | | | | [phone] | | | | | | | | +--------+ + + + + | 12/20/ | Office | Audiology | DarioElisabet ramires MS | | | 2019 | Visit | | [facility] [address] | | | | | | [address] [place] | | | | | | [place], [place] [address] | | | | | | [phone] | | | | | | | | +--------+ + + + + | 12/20/ | Office | Otolaryngology | Ulysses Genao MD | | | 2019 | Visit | | [address] | | | | | | [address] [place], | | | | | | [place] [address] | | | | | | [phone] | | | | | | | | +--------+ + + + + documented as of this encounter Visit Diagnoses Not on filedocumented in this encounter"
--- OUTSIDE RECORDS SUMMARY | ~2019-10-16 | XMS | Encounter Summary ---
Demographics + + + | Address | [address] | | | [place] [address] | + + + | Home Phone [...] Providers + +------+ + | Care Electrician Assistant Name | Role | Phone | + +------+ + PCP | Unavailable | + +------+ + Encounter Details +--------+ + + + + | Date | Type | Department | Care Team | Description | +--------+ + + + + | 01/02/ | Telephone | Digestive Health | Kenisha Melton, | | | 2005 | | [address] | [facility] [address] | | | | | [address] | [address] | | | | | Mailcode: [id number] | [place], [place] | | | | | [facility] | [address] | | | | | [place], [place] | [phone] | | | | | [address] | | | | | | [phone] | | | +--------+ + + + [...]
--- OUTSIDE RECORDS SUMMARY | ~2019-10-16 | XMS | Encounter Summary ---
Demographics + + + | Address | [address] | | | [place] [address] | + + + | Home Phone [...] Providers + +------+ + | Care Production Corrugator Name | Role | Phone | + [...] Mychal Kovacs | | | | | [place] [facility] | [place], [place] | | | | | [address] | [address] | | | | | [address] | [phone] | | | | | Physician[facility] Pavilion | | | | | | Physician's | | | | | | Pavilion [place], | | | | | | [place] [address] | | | | | | [phone] | | | +--------+ + + + [...]
--- OUTSIDE RECORDS SUMMARY | ~2019-10-16 | XMS | Encounter Summary ---
Demographics + + + | Address | [address] | | | [place] [address] | + + + | Home Phone [...] Providers + +------+ + | Care Concrete Gun Operator Name | Role | Phone [...] [id number] | | | | | | [place], [place] | | | | | | [address] | | | | | | [phone] | | | +--------+ + + + [...]
--- OUTSIDE RECORDS SUMMARY | ~2019-10-16 | XMS | Encounter Summary ---
Demographics + + + | Address | [address] | | | [place] [address] | + + + | Home Phone [...] Team Providers + +------+ + | Care Escort Blind Name | Role | Phone | + [...] + | 05/01/ | Refill | [facility] | Alanis, | Medication Refill | | 2017 | | MEDICINE [address] [place] [address] | MD Petrona | | | | | [facility] | [address] [place] [address] | | | | | [place] [address] | [place] [address] | | | | | [phone] | [phone] | | | | | | | [...] | | | | | [place] [address] | | | | | | [phone] | | | | | | | | +--------+ + + + + | 12/20/ | Office | Audiology | DarioElisabet ramires MS | | | 2019 | Visit | | [facility] [address] | | | | | [address] [place] | | | | | | [place], [place] [address] | | | | | | [phone] | | | | | | | | +--------+ + + + + | 12/20/ | Office | Otolaryngology | Ulysses Genao MD | | | 2019 | Visit | | [address] | | | | | | [address] [place], | | | | | | [place] [address] | | | | | | [phone] | | | | | | | | +--------+ + + + + documented as of this encounter Visit Diagnoses Not on filedocumented in this encounter"
--- OUTSIDE RECORDS SUMMARY | ~2019-10-16 | XMS | Encounter Summary ---
Demographics + + + | Address | [address] | | | [place] [address] | + + + | Home Phone [...] Team Providers + +------+ + | Care Telepathist Name | Role | Phone | + [...] as of this encounter Progress Notes Interface, Flask Fitter In - 12/09/2005 2:08 AM PDT [id number] GEOVANNI Barnes [id number] Clinic Date: 11/26/2005 Clinic: General Surgery Clinic [...] with extensive workup. Prescription picked up at [facility] on November 25, 2005, for 50 oxycodone 5 mg. Melisa Thorne / SHARIF [id number] / [id number] / [id number] / [id number] Electronically signed by Kenisha Melton 12-05-2005 08:28:34 PM documented i n this encounter Plan of Treatment Not on filedocumented as of this encounter Visit Diagnoses Not on filedocumented in this encounter"
--- OUTSIDE RECORDS SUMMARY | ~2019-10-16 | XMS | Encounter Summary ---
Demographics + + + | Address | [address] | | | [place] [address] | + + + | Home Phone [...] Providers + +------+ + | Care Water Aerobics Instructor Name | Role | Phone | [...] + + | 07/28/ | Telephone | [facility] | Alanis, | Appointment | | 2018 | | MEDICINE [address] [place] [address] | MD Petrona | | | | | [facility] | [address] [place] [address] | | | | | [place] [address] | [place] [address] | | | | | [phone] | [phone] | | | | | | | [...] | | | | | [place] [address] | | | | | | [phone] | | | | | | | | +--------+ + + + + | 12/20/ | Office | Audiology | Elisabet Munson MS | | 2019 | Visit | | [address] | | | | | | [address] [place] | | | | | | [place] [address] | | | | | | [phone] | | | | | | | | +--------+ + + + + | 12/20/ | Office | Otolaryngology | Ulysses Genao MD | | | 2020 | Visit | | [address] | | | | | | [address] [place], | | | | | | [place] [address] | | | | | | [phone] | | | | | | | | +--------+ + + + + documented as of this encounter Visit Diagnoses Not on filedocumented in this encounter"
--- OUTSIDE RECORDS SUMMARY | ~2019-10-16 | XMS | Encounter Summary ---
Demographics + + + | Address | [address] | | | [place] [address] [...] Providers + +------+ + | Care Core Fitter Name | Role | Phone | [...] 2007 | Visit | Rheumatology [address] STONEMASON SUPERVISOR | syndrome [address] | | | | [address] | | (Primary Dx) | | | | Mailcode: OPC5 | | | | | | Outpatient Clinic | | | | | | Building [place], | | | | | | [place] [address] | | | | | | [phone] | | | +--------+---------+ + + + [...] have much room. 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 There is a disc bulge [...] 07/05/2007 56.0 15.0-75.0 Final Test performed by [facility]. VITAMIN D 25 HYDROXY (ng/mL) 07/03/2007 47 20-57 Final Comment: TEST INFORMATION: VITAMIN D, 25-HYDROXY This assay accurately quantifies the sum of vitamin D3, 25-hydroxy and vitamin D2, 25-hydroxy. Deficiency: Less than 20 ng/mL Insufficiency: 20-29 ng/mL Optimum Level: 30-80 ng/mL Possible Toxicity: Greater than 80 ng/mL Performed by [employer], [address] [place] [id number] [email or web address], Sincere Jordan MD - Lab. Director documented in this encount er Plan of Treatment Not on filedocumented as of this encounter Visit Diagnoses + + | Diagnosis | + + | Fibromyalgia syndrome 729.1 - Primary Mylagia and myositis, unspecified | + + documented in this encounter"
--- OUTSIDE RECORDS SUMMARY | ~2019-10-16 | XMS | Encounter Summary ---
Demographics + + + | Address | [address] | | | [place] [address] | + + + | Home Phone [...] Providers + +------+ + | Care Passenger Conductor Name | Role | Phone | + [...] Question | | 2018 | | MEDICINE [address] [place] [address] | MD Petrona | | | | | [facility] | [address] [place] [address] | | | | | [place] [address] | [place] [address] | | | | | [phone] | [phone] | | | | | | | [...] | | | | | [place] [address] | | | | | | [phone] | | | | | | | | +--------+ + + + + | 12/20/ | Office | Audiology | Elisabet Munson MS | | | 2019 | Visit | | [facility] [address] | | | | | [address] [place] | | | | | | [place] [address] | | | | | | [phone] | | | | | | | | +--------+ + + + + | 12/20/ | Office | Otolaryngology | Ulysses Genao MD | | | 2019 | Visit | | [address] | | | | | | [address] [place], | | | | | | [place] [address] | | | | | | [phone] | | | | | | | | +--------+ + + + + documented as of this encounter Visit Diagnoses Not on filedocumented in this encounter"
--- OUTSIDE RECORDS SUMMARY | ~2019-10-16 | XMS | Encounter Summary ---
Demographics + + + | Address | [address] | | | [place] [address] | + + + | Home Phone [...] Providers + +------+ + | Care Area Director Of Home Health Sales Name | Role | Phone | [...] | | | [facility] | [place], [place] | | | | | [address] | [address] | | | | | [address] | [phone] | | | | | Physician's [address] | | | | | | Physician's | | | | | | [place], | | | | | | [place] [address] | | | | | | [phone] | | | +--------+---------+ + + + [...]
--- OUTSIDE RECORDS SUMMARY | ~2019-10-16 | XMS | Encounter Summary ---
Demographics + + + | Address | [address] | | | [place] [address] | + + + | Home Phone [...] Providers + +------+ + | Care Electric Drill Operator Name | Role | Phone [...] [place] | | | | | | [address] | | | | | | [phone] | | | +--------+ + + + [...] | | | | | [place] [address] | | | | | | [phone] | | | | | | | | +--------+ + + + + | 12/20/ | Office | Audiology | Elisabet Munson MS | | 2019 | Visit | | [address] | | | | | | [facility] [address] | | | | | | [place] [address] | | | | | | [phone] | | | | | | | | +--------+ + + + + | 12/20/ | Office | Otolaryngology | Ulysses Genao MD | | | 2020 | Visit | | [address] | | | | | | [address] [place], | | | | | | [place] [address] | | | | | | [phone] | | | | | | | | +--------+ + + + + documented as of this encounter Visit Diagnoses Not on filedocumented in this encounter"
--- OUTSIDE RECORDS SUMMARY | ~2019-10-16 | XMS | Encounter Summary ---
Demographics + + + | Address | [address] | | | [place] [address] | + + + | Home Phone [...] Providers + +------+ + | Care Harness Worker Name | Role | Phone | [...] | Neurology | Diagnoses | Miracle, | [place], | | | | | Migraine | NIHARIKA Jean | Merari Lopez MD | | | | | headache | [address] | | | | | | Procedures | Mychal Kovacs | | | | | | CONSULT TO | [place], [place] | | | | | | NEUROLOGY | [address] | | +--------+--------+ + + + + [...] | | [facility] | | Migraine Headache; | | | | [address] | | Opioid Dependence, | | | | Mailcode: CH15P | | Continuous (HCC); | | | [facility] | | Neck Pain; Right | | | | and Healing, | | shoulder rotator | | | | Building | | cuff strain; | | | | Floor [facility] [place] | | 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 Schedule Neurology evaluation [facility] order placed for Dr. Merari Mittal MD 4. Follow up 11/11/06 documented in this encounter Progress Notes Delfina Molina - 10/23/2006 1:20 PM PDTFormatting of this note might be different from th e original. 10/23/2006 Belinda Meehan is a 46 y.o. female [facility] [...] car. She has not been seeing the [facility] PT , await ing the surgical plan for her left knee. MRI done, ordered by Dr. Ibarra who referred to Dr. Angel Morales for surgical opinion, scheduled for 10/28/06. She continues to see Dr. Alin adames at [facility] and reports benefit and would like to nelly salude she has two more scheduled visits. She reports Dr. Woodson referred her to neurologist locally for her migraine assessment how ever not being scheduled due to insurance [place] barriers. She is interested in being referred to a Dr. Merari Mittal [facility] neurlogy whom she has heard works [...] Collection Time Resulting Agency 10/05/2006 9:20 AM [facility] DEPARTMENT OF RADIOLOGY Component Results MR [...] the free margin and undersurface of the director of rooms horn of the medial meniscus suspicious for [...] the left knee 3. Schedule Neurology evaluation [facility] order placed for Dr. Merari Mittal MD 4. Follow up 11/11/06 to reivew pain management 5. Cntinue with PT and psychology as scheduled DELFINA MOLINA [facility] Mail code CH 4P [address] [address] iAgustin maciasndy - 10/23 12:47 [...]
--- OUTSIDE RECORDS SUMMARY | ~2019-10-16 | XMS | Encounter Summary ---
Demographics + + + | Address | [address] | | | [place] [address] | + + + | Home Phone [...] Providers + +------+ + | Care Geodetic Advisor Name | Role | Phone | [...] | | | | | [facility] | | | | | | [address] | | | | | | Mailcode: CH15P | | | | | | [facility] | | | | | | and Healing, | | | | | | Building | | | | | | Floor [place], [place] | | | | | | [address] | | | | | | [phone] | | | +--------+ + + + [...]
--- OUTSIDE RECORDS SUMMARY | ~2019-10-16 | XMS | Encounter Summary ---
Demographics + + + | Address | [address] | | | [place] [address] | + + + | Home Phone [...] Providers + +------+ + | Care Visual Presentation Manager Name | Role | Phone | [...] + | 06/25/ | Refill | [facility] | Alanis, | Medication Refill | | 2018 | | MEDICINE [address] [place] [address] | MD Petrona | | | | | [facility] | [address] [place] [address] | | | | | [place] [address] | [place] [address] | | | | | [phone] | [phone] | | | | | | | [...] | | | | | [place] [address] | | | | | | [phone] | | | | | | | | +--------+ + + + + | 12/20/ | Office | Audiology | DarioElisabet ramires MS | | | 2019 | Visit | | [facility] [address] | | | | | [address] [place] | | | | | | [place], [place] [address] | | | | | | [phone] | | | | | | | | +--------+ + + + + | 12/20/ | Office | Otolaryngology | Ulysses Genao MD | | | 2019 | Visit | | [address] | | | | | | [address] [place], | | | | | | [place] [address] | | | | | | [phone] | | | | | | | | +--------+ + + + + documented as of this encounter Visit Diagnoses Not on filedocumented in this encounter"
--- OUTSIDE RECORDS SUMMARY | ~2019-10-16 | XMS | Encounter Summary ---
Demographics + + + | Address | [address] | | | [place] [address] | + + + | Home Phone [...] Providers + +------+ + | Care Business Database Analyst Name | Role | Phone [...] | Transcriptions | + + | Interface, Biology Intern In - 06/05/2005 5:20 AM PST | | [id number] | | [id number] GEOVANNI Barnes | | | | Date: 12/06/2004 | | | | Attending Surgeon: Chris Padgett M.D. | | | | Insole Department Worker(s): | | | | Preoperative Diagnosis(es): | [...] | | BW / HS | | [id number] / [id number] / [id number] / | | | | | | | | | | | | Electronically signed by Chris Padgett 12-31-2004 03:02:45 PM | + + documented in this encounter Visit Diagnoses Not on filedocumented in this encounter"
--- OUTSIDE RECORDS SUMMARY | ~2019-10-16 | XMS | Encounter Summary ---
Demographics + + + | Address | [address] | | | [place] [address] | + + + | Home Phone [...] Providers + +------+ + | Care Patent Law Specialist Name | Role | Phone | [...] | | | [facility] | [place], [place] | | | | | [address] | [address] | | | | | [address] | [phone] | | | | | Physician's | | | | | | Pavilion, 1st floor | | | | | | [place], [place] | | | | | | [address] | | | | | | [phone] | | | +--------+ + + + [...]
--- OUTSIDE RECORDS SUMMARY | ~2019-10-16 | XMS | Encounter Summary ---
Demographics + + + | Address | [address] | | | [place] [address] [...] Team Providers + +------+ + | Care Booster Pump Operator Name | Role | Phone [...] [id number] | | | | | | [place], [place] | | | | | | [address] | | | | | | [phone] | | | +--------+--------+ + + + [...]
--- OUTSIDE RECORDS SUMMARY | ~2019-10-16 | XMS | Encounter Summary ---
Demographics + + + | Address | [address] | | | [place] [address] | + + + | Home Phone [...] Providers + +------+ + | Care Boiler Plant Operator Name | Role | Phone | + +------+ + PCP | Unavailable | + +------+ + Encounter Details +--------+ + + + + | Date | Type | Department | Care Team | Description | +--------+ + + + + | 07/04/ | Office | Endocrinology, | Beto Meeks MD | | | 2005 | Visit-ECX | Diabetes and | [address] | | | | | Clinical Nutrition | [place], [place] | | | | | [address] | [address] | | | | | Loop Mailcode: OPC5 | [phone] | | | | | Outpatient Clinic | | | | | | [facility] | | | | | | [place] [address] | | | | | | [phone] | | | +--------+ + + + [...]
--- OUTSIDE RECORDS SUMMARY | ~2019-10-16 | XMS | Encounter Summary ---
Demographics + + + | Address | [address] | | | [place] [address] | + + + | Home Phone [...] Team Providers + +------+ + | Care Dimensional Engineer Name | Role | Phone | [...] | | | [facility] | [place], [place] | | | | | [address] | [address] | | | | | [address] | [phone] | | | | | Physician's | | | | | | Pavilion, 1st floor | | | | | | [place], [place] | | | | | | [address] | | | | | | [phone] | | | +--------+--------+ + + + [...]
--- OUTSIDE RECORDS SUMMARY | ~2019-10-16 | XMS | Encounter Summary ---
Demographics + + + | Address | [address] | | | [place] [address] | + + + | Home Phone [...] Paperwork | | 2018 | | MEDICINE [address] [place] [address] | MD Petrona | | | | | [facility] | [address] [place] [address] | | | | | [place] [address] | [place] [address] | | | | | [phone] | [phone] | | | | | | | [...] | | | | | [place] [address] | | | | | | [phone] | | | | | | | | +--------+ + + + + | 12/20/ | Office | Audiology | Elisabet Munson MS | | 2019 | Visit | | [facility] [address] | | | | | | [address] [place] | | | | | | [place] [address] | | | | | | [phone] | | | | | | | | +--------+ + + + + | 12/20/ | Office | Otolaryngology | Ulysses Genao MD | | | 2020 | Visit | | [address] | | | | | | [address] [place], | | | | | | [place] [address] | | | | | | [phone] | | | | | | | | +--------+ + + + + documented as of this encounter Visit Diagnoses Not on filedocumented in this encounter"
--- OUTSIDE RECORDS SUMMARY | ~2019-10-16 | XMS | Encounter Summary ---
Demographics + + + | Address | [address] | | | [place] [address] | + + + | Home Phone [...] Providers + +------+ + | Care Electronics Lead Name | Role | Phone | [...] | Pain | Diagnoses | Emmy | Line Operator Chh1 | | | | Management | [...] | | | | | Meniere's | [address] | Building | | | | | disease, | Phone: | 1,15th Floor | | | | | bilateral | [phone] | [place], [place] | | | | | Rheumatoid | Fax: | [address] | | | | | arthritis, | [phone] | Phone: | | | | | unspecified | | [phone] | | | | | | | Fax: | | | | | Postlaminect | | [phone] | | | | | toya | [...] + + | 02/05/ | Office | [facility] | Shalonda Garcia, | Post laminectomy | | 2017 | Visit | Pain Center at | MANAGER PRODUCT MANAGEMENT [address] | syndrome (Primary | | | | [facility] | [place], [place] | Dx); Intractable | | | | [address] | [address] | chronic migraine | | | | Mailcode: CH15P | [phone] | without aura and | | | | [place] [facility] | | with status | | | | and Healing, | | migrainosus; | | | | | | Fibromyalgia | | | | Floor [place], [place] | | | | | | [address] | | | | | | [phone] | | | +--------+---------+ + + + [...] Discuss with your PCP, a referral to [facility] for discussion regarding spinal cord stimulator Shalonda Mustafa DNP, MANAGER PRODUCT MANAGEMENT-C Adult Pain Service [facility] [employer] [place] [address] documented in this encounter Progress Notes Amie Jing - 02/05/2017 1:35 PM PDT Date: 02/05/2017 was referred for pain management consultation by Sulaiman Whitlock MD [address] [place] [address] Reason for consult: cervical radiculopathy, low back [...] by her primary care pr magdy in [facility]. This provider is currently in [...] patient at a pain cli brigida in [facility], however her insurance changed and she no longer has coverage at this clinic. 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 She feels she is at the point where is not able to determine which medications are hel pful in improving her pain. She endorses incontinence symptoms. She reports there are "days I just want to " because her pain is so bad. 's treatment for this pain complaint has included: MEDICATIONS: - Gabapentin - Maskell - Butran - Cymbalta - Fentanyl Patches NON-MEDICATION THERAPIES: - Physical Therapy - Exercise - Heat/Ice - Pool Therapy - Brace/Support - TENS INTERVENTIONS: - Spinal surgery x3, Laminectomy unknown level - Epidural Steroid Injections - Trigger Point Injections lives in a single family home in [place], [place]. She is not currently working , she receives disability. As a result of her pain, notes multiple changes in her life, including limiting her ability to perform routine tasks. 's goals from today's appointment include: consultation only (advice only to you and your primary care physician), counseling, drug treatment, help in coping with the pain a nd stress management. GENERATION ENGINEERING TECHNOLOGIST Brief Pain Inventory: (ten= worst possible pain [...] Colorectal polyps COPD (chronic obstructive pulmonary disease) ([facility]) CVA (cerebral vascular accident) ([facility]) Fibromyalgia 07/25/2008 Craniocervical junction appears stenotic in cervical extension. Headache HTN (hypertension) Hypothyroidism 11/11/2006 IBS (irritable bowel syndrome) Internal hemorrhoid Kidney stone Major depressive disorder, recurrent episode, moderate ([facility]) 07/31/2006 Metabolic syndrome X 250.80 Metabolic syndrome X 250.80 Optic nerve hemorrhage left eye Other general symptoms Pneumonia PUD (peptic ulcer disease) RA (rheumatoid arthritis) ([facility]) Radiculitis, lumbosacral 03/03/2008 Reduced vision Scoliosis Sleep apnea Spondylosis with myelopathy, lumbar region 07/02/2006 Vertebral fracture T7,8,9 Xray T spine 2003 Past Surgical History Procedure Laterality Date Salpingo-oophorectomy Colonoscopy 03/2006 Tonsillectomy Pr d&c after delivery Pr inject trigger point, 1 or 2 Knee replacement 02/2007 Left knee Knee replacement 08/2007 right knee Lumbar fusion 05/2008, '11 & '12 L5-D9suukfe with bone spur removals Appendectomy Cholecystectomy section [...] Hives Mainly in the legs Clindamycin Codeine Rdltebl-Bqqedwmqii-Wsw-Caff Balance problems Fioricet W/Codeine [Gogoovsuvx-Wnpbxfimky-Iex-Cod] Keflex [Cephalexin] Ketorolac Unknown Morphine IM ( only in [facility]) made gut pain worse 08/27/06: [...] and summary of old medical records (source: [employer]), as summarized in the body of the [...] by her primary care pr magdy in [facility]. She reports that this provider [...] Whitlock MD may consider a referral to [facility] for discu ssion regarding spinal cord stimulator -No follow up needed at this time 02/05/2017: I, Kathleen Riley am functioning as a medical corps officer for MEGAN Dutta DNP I have reviewed and verified the above scribed note of my visit with this patient as record ed by Kathleen Riley. Shalonda Mustafa DNP, FNP-C Adult Pain Service /[facility] [address] [place] [address] Maris Costa MA - 02/05/2017 1:35 PM [...]
--- OUTSIDE RECORDS SUMMARY | ~2019-10-16 | XMS | Encounter Summary ---
Demographics + + + | Address | [address] | | | [place] [address] | + + + | Home Phone [...] Team Providers + +------+ + | Care Leadite Worker Name | Role | Phone | [...] | 09/25/ | Telephone | [facility] | Alanis, | Other | | 2018 | | MEDICINE [address] [place] [address] | MD Petrona | | | | | [facility] | [address] [place] [address] | | | | | [place] [address] | [place] [address] | | | | | [phone] | [phone] | | | | | | | [...] | | | | | [place] [address] | | | | | | [phone] | | | | | | | | +--------+ + + + + | 12/20/ | Office | Audiology | Elisabet Munson MS | | 2019 | Visit | | [facility] [address] | | | | | | [address] [place] | | | | | | [place] [address] | | | | | | [phone] | | | | | | | | +--------+ + + + + | 12/20/ | Office | Otolaryngology | Ulysses Genao MD | | | 2019 | Visit | | [address] [facility] | | | | | | [address] [place], | | | | | | [place] [address] | | | | | | [phone] | | | | | | | | +--------+ + + + + documented as of this encounter Visit Diagnoses + + | Diagnosis | + + | OLIVER (obstructive sleep apnea) - Primary Obstructive sleep apnea (adult) (pediatric) | + + documented in this encounter"
--- OUTSIDE RECORDS SUMMARY | ~2019-10-16 | XMS | Encounter Summary ---
Demographics + + + | Address | [address] | | | [place] [address] | + + + | Home Phone [...] | Pain | Diagnoses | Miracle, | [place], | | | | Management | LBP (low | NIHARIKA Jean | Lukasz Rhodes, PhD | | | | | back pain) | [address] | [address] | | | | | [address] | [address] | Ave | | | | | (degenerativ | [place], [place] | [place] | | | | | e joint | [address] | [address] | | | | | disease) of | | Phone: | | | | | knee Knee | | [phone] | | | | | pain Major | | Fax: | | | | | depressive | | [phone] | | | | | disorder, | [...] 06/21/ | Office | Pain Center at [facility] | Lukasz Charles, | Major Depressive | | 2008 | Visit | [address] | PhD [address] | Disorder, Recurrent | | | | Mailcode: CH15P | [place], [place] | Episode, Mild (HCC); | | | | [place] [facility] | [address] | LBP (Low Back | | | | and Healing, | [phone] | Pain); Migraine | | | | | | Headache | | | | Floor [place], [place] | | | | | | [address] | | | | | | [phone] | | | +--------+---------+ + + + [...] migraine specialist this week. She reported that [email or web address] has done some sewing and she found [...] benefit as she becomes more active. Diagnosis: [place] I: 1. (296.31) Major depressive disorder, recurrent, mild. 2. (309.24) Adjustment disorder with anxiety. 3. 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 [place] II: Deferred [place] III: abdominal pain, migraine headache, low back pain. [place] IV: low finances [place] V: GAF 55-60 Plan: return with next medical follow-up appointment. Check mood, pain, surgical recovery , relaxation, activity, distraction, eating. Ask about headache specialist, physical therap y. Continue cognitive/behavioral therapy. Total time spent with patient was approximately 45 minutes. LUKASZ CHARLES PHD [facility] [address] [facility], [address] [place] [address] documented in this en counter Plan of [...]
--- OUTSIDE RECORDS SUMMARY | ~2019-10-16 | XMS | Encounter Summary ---
Demographics + + + | Address | [address] | | | [place] [address] | + + + | Home Phone [...] | | | | | | | [place], [place] | | | | | | | [address] | | | | | | | Phone: | | | | | | | [phone] | | | | | | | Fax: | | | | | | | [phone] | +--------+--------+ + + + + Encounter [...] | | | [facility] | [place], [place] | Metabolic syndrome | | | | [address] | [address] | X 250.80; Essential | | | | [address] | [phone] | hypertension 401.9; | | | | [facility] | | Fibromyalgia | | | | Physician's | | syndrome 729.1 | | | | Pavilion [place], | | | | | | [place] [address] | | | | | | [phone] | | | +--------+---------+ + + + [...] by oral route once daily at bedti nj as needed Oxycodone HCl (OXYCONTIN) 40 mg [...]
--- OUTSIDE RECORDS SUMMARY | ~2019-10-16 | XMS | Encounter Summary ---
[...] Team Providers + +------+ + | Care Events Traffic Controller Name | Role | Phone | [...] + | 05/25/ | Refill | [facility] | Alanis, | Medication Refill | | 2016 | | MEDICINE [address] [place] [address] | MD Petrona | | | | | [facility] | [address] [place] [address] | | | | | [place] [address] | [place] [address] | | | | | [phone] | [phone] | | | | | | | [...] | | | | | [place] [address] | | | | | | [phone] | | | | | | | | +--------+ + + + + | 12/20/ | Office | Audiology | DarioElisabet ramires MS | | | 2019 | Visit | | [facility] [address] | | | | | [address] [place] | | | | | | [place], [place] [address] | | | | | | [phone] | | | | | | | | +--------+ + + + + | 12/20/ | Office | Otolaryngology | Ulysses Genao MD | | | 2019 | Visit | | [address] | | | | | | [address] [place], | | | | | | [place] [address] | | | | | | [phone] | | | | | | | | +--------+ + + + + documented as of this encounter Visit Diagnoses Not on filedocumented in this encounter"
--- OUTSIDE RECORDS SUMMARY | ~2019-10-16 | XMS | Encounter Summary ---
Demographics + + + | Address | [address] | | | [place] [address] | + + + | Home Phone [...] Team Providers + +------+ + | Care Mending Carrier Name | Role | Phone | [...] 08/12/ | Office | [facility] Center at [facility] | Lukasz Charles, | Major Depressive | | 2006 | Visit | [address] | PhD [address] | Disorder, Recurrent | | | | Mailcode: CH15P | [place], [place] | Episode, Moderate | | | | [facility] | [address] | ([facility]); Neck Pain; | | | | and Healing, | [phone] | Migraine Headache; | | | | Building | | Spondylosis with | | | | Floor [place], [place] | | Myelopathy, Lumbar | | | | [address] | | Region; Adjustment | | | | [phone] | | Disorder with | | | [...] is making an effort to improve. Diagnosis: [place] I: 1. (296.32) Major depressive disorder, recurrent, moderate. 2. (309.24) Adjustment disorder with anxiety. 3. 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 [place] II: Deferred [place] III: abdominal pain, migraine headache, low back pain. [place] IV: low finances [place] V: GAF 50 Plan: Return in 2 weeks. Check pacing, relaxation, activity, distraction. Ask about coping with previous headache. Continue cognitive/behavioral therapy. Total time spent with patient was approximately 45 minutes. LUKASZ CHARLES [facility] [address] [facility] [place] [address] documented in this encount er Plan of [...]
--- OUTSIDE RECORDS SUMMARY | ~2019-10-16 | XMS | Encounter Summary ---
Demographics + + + | Address | [address] | | | [place] [address] [...] Team Providers + +------+ + | Care Amusement Machine Mechanic Name | Role | Phone [...] | 2006 | TRANSCRIPTI | [facility] at [employer] | [address] [facility] | QUESTIONNAIRE | | | ON | for Health and | [facility], [place] | | | | | Healing [address] | [address] | | | | | Beth[place] Mailcode: | [phone] | | | | | CH12A [facility] | | | | | | Health and Healing, | | | | | | [facility] | | | | | | [place], [place] | | | | | | [address] | | | | | | [phone] | | | +--------+ + + + [...]
--- OUTSIDE RECORDS SUMMARY | ~2019-10-16 | XMS | Encounter Summary ---
Demographics + + + | Address | [address] | | | [place] [address] | + + + | Home Phone [...] Providers + +------+ + | Care Bakery Assistant Name | Role | Phone | [...] Refill Request | | 2009 | | [place] [address] | [address] | (SUCRALFATE) | | | | [place] Mailcode: CH4S | [facility] | | | | | [facility] | [place], [place] | | | | | and Healing, | [address] | | | | | [facility] | [phone] | | | | | Floor [place], [place] | | | | | | [address] | | | | | | [phone] | | | +--------+--------+ + + + [...]
--- OUTSIDE RECORDS SUMMARY | ~2019-10-16 | XMS | Encounter Summary ---
Demographics + + + | Address | [address] | | | [place] [address] | + + + | Home Phone [...] + +------+ + | Care Physical Therapy Coordinator Name | Role | Phone | [...] | 06/21/ | Office | [facility] Comprehensive | Delfina Molina, | LBP (Low Back Pain) | | 2008 | Visit | Pain Center at | ANP | (Primary Dx); Spinal | | | | [facility] | | Fusion Lumbar spine | | | | [address] | | ; Hx Arthroplasty | | | | Mailcode: CH15P | | of both Knees; | | | | [facility] for [facility] | | Fibromyalgia | | | | and Healing, | | syndrome 729.1; | | | | | | Abdominal Pain, | | | | Floor [place], [place] | | dumping syndrome Hx | | | | [address] | | of gastric bypass; | | | | [phone] | | Dumping Syndrome; | | | [...] is a 48 y.o. female [facility] Comprehensive Pain [...] removal on 05/15/2008 Dr. Betty Thomas MD [facility], after having problems with nu mbness, [...] a migraine sp ecialist this week in [place], Dr Lucio Nichols. Next area of chronic [...] drawing has be completed, which I reviewed. [facility] Brief Pain Inventory: (ten= worst possible [...] 3. Mental Health care: Dr Ogden psychology [facility] last visit today . She [...] 300 mg) by oral route once daily escxchgjec-oxcywxgnrnwaz-ykgpeshm (FIORICET) 50-325-40 mg Oral Tablet take 2 [...] 278 01/18 Paniculectomy Hx lumbar fusion 05/2008 L1-M9itnxrr with bone spur removals Family History Problem [...] psychologist when ever sh e comes to [place] for medical care. She has a strong [...] any concerns or questions. DELFINA MOLINA [facility] Mail code CH 4P [facility] [address] [facility] [address] yT Mendez - 12/2008 9:11 AM PSTCMA History: PMH/PSH/SH/FH review Patient had lumbar fusion in May 22. She also reports tooth abcess. She has script for an tibiotic tx waiting for her in [place]. 1. Has your pain changed from your [...]
--- OUTSIDE RECORDS SUMMARY | ~2019-10-16 | XMS | Encounter Summary ---
Demographics + + + | Address | [address] | | | [place] [address] | + + + | Home Phone [...] Team Providers + +------+ + | Care Radiologic Technology Instructor Name | Role | Phone | + +------+ + | Petrona Thapa | PCP | | | MD | | | + +------+ + Encounter Details +--------+ + + + + | Date | Type | Department | Care Team | Description | +--------+ + + + + | 09/22/ | Hospital | [facility] | Alanis, | Impingement syndrome | | 2018 | Encounter | [facility] | MD Petrona | of right shoulder | | | | [address] [place] | [address] [place] | | | | | [place], [place] | [place] [address] | | | | | [address] | [phone] | | | | | [phone] | | | +--------+ + + + [...] 11/14/ | Office | Internal Medicine | lAanis, | | | 2019 | Visit | | MD Petrona | | | | | | [address] [place] | | | | | | [place] [address] | | | | | | [phone] | | | | | | | | +--------+ + + + + | 12/20/ | Office | Audiology | Elisabet Munson MS | | | 2019 | Visit | | [facility] [address] | | | | | [address] [place] | | | | | | [place] [address] | | | | | | [phone] | | | | | | | | +--------+ + + + + | 12/20/ | Office | Otolaryngology | Ulysses Genao MD | | | 2019 | Visit | | [address] | | | | | | [address] [place], | | | | | | [place] [address] | | | | | | [phone] | | | | | | | [...] AC joint. Dictated and Signed by: Sarath Donaldson | | MD [place] Electronically signed: 09/22/2017 [...]
--- OUTSIDE RECORDS SUMMARY | ~2019-10-16 | XMS | Encounter Summary ---
Demographics + + + | Address | [address] | | | [place] [address] | + + + | Home Phone [...] + +------+ + | Care Continuous Improvement Coach Name | Role | Phone | [...] | | Order | Loop [facility]'s | [place], [place] | | | | | Sharmila, [facility] floor | [address] | | | | | [place], [place] | [phone] | | | | | [address] | | | | | | [phone] | | | +--------+ + + + [...]
--- OUTSIDE RECORDS SUMMARY | ~2019-10-16 | XMS | Encounter Summary ---
Demographics + + + | Address | [address] | | | [place] [address] | + + + | Home Phone [...] Team Providers + +------+ + | Care Reconciliation Specialist Name | Role | Phone | [...] | Pain | Diagnoses | Miracle, | [place], | | | | Management | LBP (low | NIHARIKA Jean | Lukasz Rhodes, PhD | | | | | back pain) | [address] | | | | | [address] | [address] | Ave | | | | | (degenerativ | [place], [place] | [place], [place] | | | | | e joint | [address] | [address] | | | | | disease) of | | Phone: | | | | | knee Knee | | [phone] | | | | | pain Major | | Fax: | | | | | depressive | | [phone] | | | | | disorder, | [...] / | Office | [facility] Center at [facility] | Lukasz Charles, | Major Depressive | | 2007 | Visit | [address] | PhD [address] [place] | Disorder, Recurrent | | | | Mailcode: [facility] | [place], [place] | Episode, Moderate | | | | [place] for [facility] | [address] | ([facility]); LBP (Low Back | | | | and Healing, | [phone] | Pain); Fibromyalgia | | | | | | syndrome 729.1; | | | | Floor [place], [place] | | Adjustment Disorder | | | | [address] | | with Anxiety; | | | | [phone] | | Bilateral Knee Pain; | | [...] creative work (quilting) and some reading. Ms. Meeahn has ongoing depression and frustration. She is not suicidal. She is doing jeni ewhat better but needs to remember to use self-management skills during intense pain episode s. Diagnosis: [place] I: 1. (296.32) Major depressive disorder, recurrent, moderate. 2. (309.24) Adjustment disorder with anxiety. 3. 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 [place] II: Deferred [place] III: abdominal pain, migraine headache, low back pain. [place] IV: low finances [place] V: GAF 55-60 Plan: return with next medical follow-up appointment. Check mood, knee surgery, relaxatio n, activity, distraction. Continue cognitive/behavioral therapy. Total time spent with patient was approximately 45 minutes. LUKASZ CHARLES [facility] Comprehensive Pain Center [address] [facility], [address] [place] [address] documented in this encount er Plan of Treatment + + +--------+ + + | Name | Type | Priori | Associated Diagnoses | Order Schedule | | | | ty | | | + + +--------+ + + | CO PSYCHOTHERPY, | Procedures | Routin | Major Depressive | Ordered: 08/13/2007 | | OFFICE (36-37) | | e | Disorder, Recurrent | | | | | | Episode, Moderate | | | | | | ([facility]) LBP (Low Back | | | | [...]
--- OUTSIDE RECORDS SUMMARY | ~2019-10-16 | XMS | Encounter Summary ---
Demographics + + + | Address | [address] | | | [place] [address] | + + + | Home Phone [...] Providers + +------+ + | Care Precision Agronomist Name | Role | Phone | [...] + | 07/28/ | Telephone | [facility] | Alanis, | Appointment | | 2018 | | MEDICINE [address] [place] [address] | MD Petrona | | | | | [facility] | [address] [place] [address] | | | | | [place] [address] | [place] [address] | | | | | [phone] | [phone] | | | | | | | [...] | | | | | [place] [address] | | | | | | [phone] | | | | | | | | +--------+ + + + + | 12/20/ | Office | Audiology | Elisabet Munson MS | | 2019 | Visit | | [facility] | | | | | | [address] [place] | | | | | | [place] [address] | | | | | | [phone] | | | | | | | | +--------+ + + + + | 12/20/ | Office | Otolaryngology | Ulysses Genao MD | | | 2020 | Visit | | [address] | | | | | | [address] [place], | | | | | | [place] [address] | | | | | | [phone] | | | | | | | | +--------+ + + + + documented as of this encounter Visit Diagnoses Not on filedocumented in this encounter"
--- OUTSIDE RECORDS SUMMARY | ~2019-10-16 | XMS | Encounter Summary ---
Demographics + + + | Address | [address] | | | [place] [address] | + + + | Home Phone [...] Providers + +------+ + | Care Certified Veterinary Technician Name | Role | Phone | [...] + + | 09/13/ | Telephone | [facility] | Alanis, | Appointment | | 2019 | | MEDICINE [address] [place] [address] | MD Petrona | | | | | [facility] | [address] [place] [address] | | | | | [place] [address] | [place] [address] | | | | | [phone] | [phone] | | | | | | | [...] | | | | | [place] [address] | | | | | | [phone] | | | | | | | | +--------+ + + + + | 12/20/ | Office | Audiology | Elisabet Munson MS | | 2019 | Visit | | [facility] | | | | | | [address] [place] | | | | | | [place] [address] | | | | | | [phone] | | | | | | | | +--------+ + + + + | 12/20/ | Office | Otolaryngology | Ulysses Genao MD | | | 2020 | Visit | | [address] | | | | | | [address] [place], | | | | | | [place] [address] | | | | | | [phone] | | | | | | | | +--------+ + + + + documented as of this encounter Visit Diagnoses Not on filedocumented in this encounter"
--- OUTSIDE RECORDS SUMMARY | ~2019-10-16 | XMS | Encounter Summary ---
Demographics + + + | Address | [address] | | | [place] [address] | + + + | Home Phone [...] Providers + +------+ + | Care Podiatric Aide Name | Role | Phone | [...] + + | 08/26/ | Telephone | [facility] | Alanis, | Headache (Adult - | | 2018 | | MEDICINE [address] | MD Petrona | Recurrent Or Known | | | | [address] [place] | [address] [facility] | Dx Migraines) | | | | [place] [address] | [place] [address] | | | | | [phone] | [phone] | | | | | | | [...] | | | | | [place] [address] | | | | | | [phone] | | | | | | | | +--------+ + + + + | 12/20/ | Office | Audiology | Elisabet Munson MS | | | 2019 | Visit | | [facility] [address] | | | | | | [address] [place] | | | | | | [place] [address] | | | | | | [phone] | | | | | | | | +--------+ + + + + | 12/20/ | Office | Otolaryngology | Ulysses Genao MD | | | 2019 | Visit | | [address] | | | | | | [address] [place], | | | | | | [place] [address] | | | | | | [phone] | | | | | | | [...]
--- OUTSIDE RECORDS SUMMARY | ~2019-10-16 | XMS | Encounter Summary ---
Demographics + + + | Address | [address] | | | [place] [address] | + + + | Home Phone [...] Providers + +------+ + | Care Autism Motor Specialist Name | Role | Phone | [...] + + | 08/23/ | Telephone | [facility] | Alanis, | Medication Follow-up | | 2019 | | [address] | MD Petrona | (Prior | | | | [facility] | [address] [place] [address] | Authorization | | | | [place] [address] | [place] [address] | needed) | | | | [phone] | [phone] | | | | | | | [...] | | | | | [place] [address] | | | | | | [phone] | | | | | | | | +--------+ + + + + | 12/20/ | Office | Audiology | Elisabet Munson MS | | | 2019 | Visit | | [facility] [address] | | | | | | [address] [place] | | | | | | [place] [address] | | | | | | [phone] | | | | | | | | +--------+ + + + + | 12/20/ | Office | Otolaryngology | Ulysses Genao MD | | | 2019 | Visit | | [address] | | | | | | [address] [place], | | | | | | [place] [address] | | | | | | [phone] | | | | | | | | +--------+ + + + + documented as of this encounter Visit Diagnoses Not on filedocumented in this encounter"
--- OUTSIDE RECORDS SUMMARY | ~2019-10-16 | XMS | Encounter Summary ---
Demographics + + + | Address | [address] | | | [place] [address] | + + + | Home Phone [...] Providers + +------+ + | Care Adult Education Teacher Name | Role | Phone [...] + | 11/23/ | Office | [facility] [...] Encounter for | | | | Floor [place], [place] | | Long-Term (Current) | | | | [address] | | Use of Opioids; | | | | [phone] | | Major Depressive | | | [...] is a 47 y.o. female [facility] [...] [facility] Brief Pain Inventory: Right Now: 9 [...] Result Impression NAME: BELINDA MEEHAN MR #: [id number] DATE OF EXAM: [id number] PHYSICIAN: EMMA ROJAS [...] DISK BULGE. Transcribed By: Armaan Mata : [id number] : [id number] Approved By: Radiologist: Physical Examination: [...] seeing Nathalia Arora PT here at the [facility] to address her back [...] vs Hernia. 6. PT here at the [facility] available 7. Repeat TESI as needed. DELFINA MOLINA [facility] Mail code CH 4P [facility] and [address] [address] JasenTy montilla - 9:12 AM [...]
--- OUTSIDE RECORDS SUMMARY | ~2019-10-16 | XMS | Encounter Summary ---
Demographics + + + | Address | [address] | | | [place] [address] | + + + | Home Phone [...] | MD Beto | Density [facility] | | | | | Procedures | [address] | [address] | | | | | CONSULT TO | Ave | [address] | | | | | BONE | [place], [place] | Rd Mailcode: | | | | | DENSITOMETRY | [address] | RODERICK Eduardo | | | | | | Phone: | [address] | | | | | | [phone] | [place], [place] | | | | | | Fax: | [address] | | | | | | [phone] | Phone: | | | | | | | [phone] | | | | | | | Fax: | | | | | | | [phone] | +--------+--------+ + + + + Encounter Details +--------+ + + + + | Date | Type | Department | Care Team | Description | +--------+ + + + + | 07/24/ | Hospital | Endocrinology, | Sjh, Bmd Dexa | | | 2008 | Encounter | Diabetes and | [address] | | | | | Clinical Nutrition | [facility], | | | | | [address] | [place] [address] | | | | | [facility] Mailcode: | | | | | | [address] | | | | | | [place], [place] | | | | | | [address] | | | | | | [phone] | | | +--------+ + + + [...] from the Results section by P Byron [[id number]] on | | | 04/17/2009 at 5:16 PM (File: [id number]) | | + + + BONE DENSITOMETRY [...]
--- OUTSIDE RECORDS SUMMARY | ~2019-10-16 | XMS | Encounter Summary ---
Demographics + + + | Address | [address] | | | [place] [address] | + + + | Home Phone [...] Team Providers + +------+ + | Care Bait Tier Name | Role | Phone | [...] as of this encounter Progress Notes Interface, Outside Food Server In - 01/03/2006 3:02 AM [facility] [place] [address] [place], [place] [address] or November 01, 2002 Pedrito Gutierrez M.D. [facility] [address] [place] [address] RE: BELINDA MEEHAN MR #: [id number] Dear Dr. Gutierrez: Belinda was seen in [...] be referred for bariatric surgery here at [facility]. We have several physicians who perform [...] and management plan was discussed with Dr. eMeks. Sincerely, Maurilio Estrada M.D. KRIS / SHARIF [id number] / [id number] / [id number] / Tdocumented in this encounter Plan of Treatment Not on filedocumented as of this encounter Visit Diagnoses Not on filedocumented in this encounter"
--- OUTSIDE RECORDS SUMMARY | ~2019-10-16 | XMS | Encounter Summary ---
Demographics + + + | Address | [address] | | | [place] [address] | + + + | Home Phone [...] Providers + +------+ + | Care Structural Metal Fabricator Apprentice Name | Role | [...] + + | 07/19/ | Telephone | [facility] | Alanis, | Lab Results | | 2019 | | MEDICINE [address] [place] [address] | MD Petrona | | | | | [facility] | [address] [place] [address] | | | | | [place] [address] | [place] [address] | | | | | [phone] | [phone] | | | | | | | [...] | | | | | [place] [address] | | | | | | [phone] | | | | | | | | +--------+ + + + + | 12/20/ | Office | Audiology | Elisabet Munson MS | | 2019 | Visit | | [facility] [address] | | | | | [address] [place] | | | | | | [place] [address] | | | | | | [phone] | | | | | | | | +--------+ + + + + | 12/20/ | Office | Otolaryngology | Ulysses Genao MD | | | 2020 | Visit | | [address] | | | | | | [address] [place], | | | | | | [place] [address] | | | | | | [phone] | | | | | | | | +--------+ + + + + documented as of this encounter Visit Diagnoses Not on filedocumented in this encounter"
--- OUTSIDE RECORDS SUMMARY | ~2019-10-16 | XMS | Encounter Summary ---
Demographics + + + | Address | [address] | | | [place] [address] | + + + | Home Phone [...] Team Providers + +------+ + | Care Rfid Engineer Name | Role | Phone | [...] + + | 04/08/ | Office | [facility] | Alanis, | Pressure injury of | | 2018 | Visit | MEDICINE [address] | MD Petrona | right buttock, stage | | | | [facility] | [address] [place] [address] | 1 (Primary Dx); [address] | | | | [place] [address] | [place] [address] | (obstructive sleep | | | | [phone] | [phone] | apnea); Lower leg | | | [...] 1,000 mcg 1,000 mcg Intramuscular Q30 Days Moerlia Thapa MD 1,000 mcg at 04/08/18 1131 ALLERGIES Allergies Allergen Reactions Lactose Codeine Sulfate Nausea Only Levofloxacin Hives, Itching and Rash Amitriptyline Hcl Other (See Comments) Confused and questionable for seizures Fzvysjaqia-Pnhg-Rxuptcin Hives and Rash Cephalexin Hives Ciprofloxacin Hives [...] like to check with a provider in [place] which is closer to her home for [...] Note: Parts of this documentwere created using PlusFour[employer] speech recognition software. As a r esult, [...] | | | | | [place] [address] | | | | | | [phone] | | | | | | | | +--------+ + + + + | 12/20/ | Office | Audiology | Elisabet Munson MS | | | 2019 | Visit | | [address] | | | | | | [place] [address] [address] | | | | | | [place] [address] | | | | | | [phone] | | | | | | | | +--------+ + + + + | 12/20/ | Office | Otolaryngology | Ulysses Genao MD | | | 2020 | Visit | | [address] | | | | | | [address] [place], | | | | | | [place] [address] | | | | | | [phone] | | | | | | | [...]
--- OUTSIDE RECORDS SUMMARY | ~2019-10-16 | XMS | Encounter Summary ---
Demographics + + + | Address | [address] | | | [place] [address] | + + + | Home Phone [...] Providers + +------+ + | Care Truck Unloader Name | Role | Phone | + +------+ + | Pedrito Gutierrez MD | PCP | | + +------+ + Encounter Details +--------+ + + + + | Date | Type | Department | Care Team | Description | +--------+ + + + + | 07/30/ | Office | [facility] 700 | Clinic, | Progress Note | | 2006 | Visit-Trans | [facility] | Endocrinology | | | | kurt | Sacha | | | | | | [facility], | | | | | | 7th floor | | | | | | [place], [place] | | | | | | [address] | | | | | | [phone] | | | +--------+ + + + [...] of this encounter Progress Notes Interface, Foot Doctor In - 09/16/2006 7:22 AM PDT [id number] GEOVANNI Barnes [id number] Clinic Date: 07/30/2006 Clinic: Endocrinology Subjective: Belinda [...] year. Beto Meeks M.D. PD / HS [id number] / [id number] / [id number] / [id number] cc: Joanna Arshad M.D. Jonathan Hitzman, M.D. [address] [facility] [place] [address] Electronically signed by Beto Meeks 09-15-2006 11:40:17 PM documented in this encounter Plan of Treatment Not on filedocumented as of this encounter Visit Diagnoses Not on filedocumented in this encounter"
--- OUTSIDE RECORDS SUMMARY | ~2019-10-16 | XMS | Encounter Summary ---
Demographics + + + | Address | [address] | | | [place] [address] | + + + | Home Phone [...] Providers + +------+ + | Care Class B Truck Driver Name | Role | Phone [...] 2005 | | Bariatric [address] | [address] | Pain (Primary Dx) | | | | [address] | [address] | | | | | Mailcode: L223A | [place], [place] | | | | | Physician's Sharmila | [address] | | | | | [address] [place], [place] | [phone] | | | | | [address] | | | | | | [phone] | | | +--------+ + + + [...] [facility] | [address] | [place], [place] | | | [facility] | | [address] | | + + + + + documented in this encounter Visit Diagnoses + + | Diagnosis | + + | Chronic abdominal pain - Primary Abdominal pain, unspecified site | + + documented in this encounter"
--- OUTSIDE RECORDS SUMMARY | ~2019-10-16 | XMS | Encounter Summary ---
Demographics + + + | Address | [address] | | | [place] [address] | + + + | Home Phone [...] Team Providers + +------+ + | Care Faro Dealer Name | Role | Phone | [...] | | | | | | [place] [facility] | | | | | | | [facility] and | | | | | | | Healing, | | | | | | | Building [address] | | | | | | | [place], [place] | | | | | | | [address] | | | | | | | Phone: | | | | | | | [phone] | | | | | | | Fax: | | | | | | | [phone] | +--------+--------+ + + + + Encounter Details +--------+---------+ + + + | Date | Type | Department | Care Team | Description | +--------+---------+ + + + | 01/10/ | Office | Digestive Health | Chris Padgett, | Status post | | 2009 | Visit | Center [address] | [address] [facility] | bariatric surgery | | | | Ave Mailcode: CH4S | [address] | (Primary Dx) | | | | [facility] | [place], [place] | | | | | and [place], | [address] | | | | | [facility] | [phone] | | | | | Floor [place], [place] | | | | | | [address] | | | | | | [phone] | | | +--------+---------+ + + + [...] and I asked her to see a hand blocker where she lives. Will obtain CBC and [...]
--- OUTSIDE RECORDS SUMMARY | ~2019-10-16 | XMS | Encounter Summary ---
Demographics + + + | Address | [address] | | | [place] [address] | + + + | Home Phone [...] + +------+ + | Care Sample Maker Name | Role | Phone | + +------+ + | Pedrito Gutiererz MD | PCP | | + +------+ [...] Pavilion | | | | | | [place], [place] | | | | | | [address] | | | | | | [phone] | | | +--------+ + + + [...]
--- OUTSIDE RECORDS SUMMARY | ~2019-10-16 | XMS | Encounter Summary ---
Demographics + + + | Address | [address] | | | [place] [address] | + + + | Home Phone [...] Providers + +------+ + | Care Industrial Design Engineer Name | Role | Phone [...] + | 12/26/ | Refill | [facility] | Alanis, | Medication Refill | | 2017 | | MEDICINE [address] [place] [address] | MD Petrona | | | | | [facility] | [address] [place] [address] | | | | | [place] [address] | [place] [address] | | | | | [phone] | [phone] | | | | | | | [...] | | | | | [place] [address] | | | | | | [phone] | | | | | | | | +--------+ + + + + | 12/20/ | Office | Audiology | DarioElisabet ramires MS | | | 2019 | Visit | | [facility] [address] | | | | | [address] [place] | | | | | | [place], [place] [address] | | | | | | [phone] | | | | | | | | +--------+ + + + + | 12/20/ | Office | Otolaryngology | Ulysses Genao MD | | | 2019 | Visit | | [address] | | | | | | [address] [place], | | | | | | [place] [address] | | | | | | [phone] | | | | | | | | +--------+ + + + + documented as of this encounter Visit Diagnoses Not on filedocumented in this encounter"
--- OUTSIDE RECORDS SUMMARY | ~2019-10-16 | XMS | Encounter Summary ---
Demographics + + + | Address | [address] | | | [place] [address] | + + + | Home Phone [...] Providers + +------+ + | Care Administrative Director Name | Role | Phone | [...] [address] | | | | | [place], [place] | [place], [place] | | | | | [address] | [address] | | | | | [phone] | [phone] | | | | | | | [...]
--- OUTSIDE RECORDS SUMMARY | ~2019-10-16 | XMS | Encounter Summary ---
Demographics + + + | Address | [address] | | | [place] [address] | + + + | Home Phone [...] Providers + +------+ + | Care Escrow Manager Name | Role | Phone | [...] | Discussion | | 2007 | | [facility] & | MD | | | | | Healing [address] | | | | | | [place] Mailcode: CH8C | | | | | | [facility] | | | | | | and Healing, | | | | | | Building | | | | | | Floor [place], [place] | | | | | | [address] | | | | | | [phone] | | | +--------+ + + + [...]
--- OUTSIDE RECORDS SUMMARY | ~2019-10-16 | XMS | Encounter Summary ---
Demographics + + + | Address | [address] | | | [place] [address] [...] + + | 06/26/ | Telephone | [facility] | Alanis, | ER Follow-up | | 2017 | | MEDICINE [address] [place] [address] | MD Petrona | | | | | [place] | [address] [place] [address] | | | | | [place] [address] | [place] [address] | | | | | [phone] | [phone] | | | | | | | [...] Petrona | | | | | | [facility] [address] | | | | | | [place] [address] | | | | | | [phone] | | | | | | | | +--------+ + + + + | 12/20/ | Office | Audiology | Elisabet Munson MS | | | 2019 | Visit | | [facility] [address] | | | | | [address] [place] | | | | | | [place], [place] [address] | | | | | | [phone] | | | | | | | | +--------+ + + + + | 12/20/ | Office | Otolaryngology | Ulysses Genao MD | | | 2019 | Visit | | [address] | | | | | | [address] [place], | | | | | | [place] [address] | | | | | | [phone] | | | | | | | | +--------+ + + + + documented as of this encounter Visit Diagnoses Not on filedocumented in this encounter"
--- OUTSIDE RECORDS SUMMARY | ~2019-10-16 | XMS | Encounter Summary ---
Demographics + + + | Address | [address] | | | [place] [address] | + + + | Home Phone [...] Team Providers + +------+ + | Care Peoplesoft Hr Developer Name | Role | Phone | [...] [address] | | | | | | [place], [place] | | | | | | [address] | | | | | | [phone] | | | +--------+ + + + [...]
--- OUTSIDE RECORDS SUMMARY | ~2019-10-16 | XMS | Encounter Summary ---
Demographics + + + | Address | [address] | | | [place] [address] | + + + | Home Phone [...] Team Providers + +------+ + | Care Weight Caller Name | Role | Phone | + [...] 2007 | Visit | Rheumatology [address] ROLLER | syndrome [address] | | | | [address] | | (Primary Dx) | | | | Mailcode: OPC5 | | | | | | Outpatient Clinic | | | | | | Building [place], | | | | | | [place] [address] | | | | | | [phone] | | | +--------+---------+ + + + [...] have much room. 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 There is a disc bulge [...] 07/05/2007 56.0 15.0-75.0 Final Test performed by [facility]. VITAMIN D 25 HYDROXY (ng/mL) 07/03/2007 47 20-57 Final Comment: TEST INFORMATION: VITAMIN D, 25-HYDROXY This assay accurately quantifies the sum of vitamin D3, 25-hydroxy and vitamin D2, 25-hydroxy. Deficiency: Less than 20 ng/mL Insufficiency: 20-29 ng/mL Optimum Level: 30-80 ng/mL Possible Toxicity: Greater than 80 ng/mL Performed by [facility], [address] [place] [id number] [email or web address], Sincere Jordan MD - Lab. Director documented in this encount er Plan of Treatment Not on filedocumented as of this encounter Visit Diagnoses + + | Diagnosis | + + | Fibromyalgia syndrome 729.1 - Primary Mylagia and myositis, unspecified | + + documented in this encounter"
--- OUTSIDE RECORDS SUMMARY | ~2019-10-16 | XMS | Encounter Summary ---
Demographics + + + | Address | [address] | | | [place] [address] | + + + | Home Phone [...] + + | 02/18/ | Refill | [facility] | Alanis, | Results, Imaging | | 2017 | | MEDICINE [address] [place] [address] | MD Petrona | | | | | [facility] | [address] [place] [address] | | | | | [place] [address] | [place] [address] | | | | | [phone] | [phone] | | | | | | | [...] | | | | | [place] [address] | | | | | | [phone] | | | | | | | | +--------+ + + + + | 12/20/ | Office | Audiology | Ceasar MunsonahMS | | | 2019 | Visit | | [facility] [address] | | | | | [address] [place] | | | | | | [place] [address] | | | | | | [phone] | | | | | | | | +--------+ + + + + | 12/20/ | Office | Otolaryngology | Ulysses Genao MD | | | 2019 | Visit | | [address] | | | | | | [address] [place], | | | | | | [place] [address] | | | | | | [phone] | | | | | | | | +--------+ + + + + documented as of this encounter Visit Diagnoses Not on filedocumented in this encounter"
--- OUTSIDE RECORDS SUMMARY | ~2019-10-16 | XMS | Encounter Summary ---
Demographics + + + | Address | [address] | | | [place] [address] | + + + | Home Phone [...] Providers + +------+ + | Care Wind Turbine Technician Name | Role | Phone | + +------+ + | Pedrito Gutierrez MD | PCP | | + +------+ + Encounter Details +--------+ + + + + | Date | Type | Department | Care Team | Description | +--------+ + + + + | 01/14/ | Telephone | Digestive Health | Chris Padgett, | | | 2009 | | [place] [address] | [address] [facility] | | | | | [place] Mailcode: CH4S | [facility] | | | | | [facility] | [place], [place] | | | | | and Healing, | [address] | | | | | [facility] | [phone] | | | | | Floor [place], [place] | | | | | | [address] | | | | | | [phone] | | | +--------+ + + + [...]
--- OUTSIDE RECORDS SUMMARY | ~2019-10-16 | XMS | Encounter Summary ---
Demographics + + + | Address | [address] | | | [place] [address] | + + + | Home Phone [...] +------+ + | Care Aged Or Disabled Carer Name | Role | Phone | + [...] | at [address] [place] | [facility] | | | | | [address] | [place] [address] | | | | | [address] | | | | | | [place], 2nd floor | | | | | | [place], [place] | | | | | | [address] | | | | | | [phone] | | | +--------+ + + + [...]
--- OUTSIDE RECORDS SUMMARY | ~2019-10-16 | XMS | Encounter Summary ---
Demographics + + + | Address | [address] | | | [place] [address] | + + + | Home Phone [...] Providers + +------+ + | Care Training Associate Name | Role | Phone | + +------+ + | Petrona Thapa | PCP | | | MD | | | + +------+ + Encounter Details +--------+---------+ + + + | Date | Type | Department | Care Team | Description | +--------+---------+ + + + | 12/20/ | Office | [facility] | Elisabet Munson MS | Sensorineural | | 2019 | Visit | AUDIOLOGY AND | [facility] [address] | hearing loss (SNHL) | | | | [facility] | [address] [place] | of both ears | | | | [address] | [place] [address] | (Primary Dx); | | | | [address] [place] | [phone] | Dizziness and | | | | [place] [address] | | giddiness | | | | [phone] | | | +--------+---------+ + + + [...] | | | | | [place] [address] | | | | | | [phone] | | | | | | | | +--------+ + + + + | 12/20/ | Office | Audiology | Elisabet Munson MS | | | 2019 | Visit | | [facility] [address] | | | | | | [address] [place] | | | | | | [place] [address] | | | | | | [phone] | | | | | | | | +--------+ + + + + | 12/20/ | Office | Otolaryngology | Ulysses Genao MD | | | 2019 | Visit | | [address] | | | | | | [address] [place], | | | | | | [place] [address] | | | | | | [phone] | | | | | | | [...]
--- OUTSIDE RECORDS SUMMARY | ~2019-10-16 | XMS | Encounter Summary ---
Demographics + + + | Address | [address] | | | [place] [address] | + + + | Home Phone [...] Providers + +------+ + | Care Clinical Therapist Name | Role | Phone | [...] Rehabilitatio | syndrome of | i, | [place] | | | | n | right | [place] | [place], | | | | | shoulder | , MD [address] | [place] [address] | | | | | Procedures | [address] | Phone: | | | | | PT | [place], | [phone] | | | | | | [place] | Fax: | | | | | | [address] | [phone] | | | | | | Phone: | | | | | | | [phone] | | | | | | | Fax: | | | | | | | [phone] | | +--------+ + + + + [...] + + | 09/22/ | Office | [facility] | Alanis, | Impingement syndrome | | 2018 | Visit | MEDICINE [address] | MD [place] | of right shoulder | | | | Street [place] | [address] [place] | (Primary Dx); Chest | | | | [place] [address] | [place] [address] | pain, unspecified | | | | [phone] | [phone] | type | | | | | [...] spasm Myalgia Nonalcoholic hepatosteatosis Obesity Opioid dependence ([facility]) Orthostatic hypotension OLIVER (obstructive sleep [...] (See Comments) Confused and questionable for seizures Zdneuamxtq-Jcpy-Noxfhxwd Cephalexin Hives Duloxetine Migraines and nausea Ketorolac Hives Morphine Swelling Ropinirole Hcl Hives Tramadol Hcl Nausea Only Wrhrqrctqd-Hrgz-Jndmqeku Hives and Rash Ciprofloxacin Hives and Rash [...] Right 2 + Vw; Future - * [facility] Physical Therapy - AMB Referral; Future 2. Chest pain, unspecified type - nitroglycerin (NITROSTAT) 0.4 mg SL tablet; Place 1 tablet under the tongue every 5 minut es as needed for Chest pain. Dispense: 25 tablet; Refill: 3 FOLLOW-UP Return in about 6 months (around 03/24/2018). Note: Parts of this documentwere created using [employer] speech recognition software. As a r [...] | | | | | [place] [address] | | | | | | [phone] | | | | | | | | +--------+ + + + + | 12/20/ | Office | Audiology | Elisabet Munson MS | | 2019 | Visit | | [facility] [address] | | | | | | [place] | | | | | | [place] [address] | | | | | | [phone] | | | | | | | | +--------+ + + + + | 12/20/ | Office | Otolaryngology | Ulysses Genao MD | | | 2019 | Visit | | [address] [place] | | | | | | [address] [place], | | | | | | [place] [address] | | | | | | [phone] | | | | | | | [...] | | | |Dictated and Signed by: Sartah Avila MD | | Electronically signed: 09/22/2017 [...]
--- OUTSIDE RECORDS SUMMARY | ~2019-10-16 | XMS | Encounter Summary ---
Demographics + + + | Address | [address] | | | [place] [address] | + + + | Home Phone [...] Providers + +------+ + | Care Engineer Sergeant Name | Role | Phone | [...] + | 08/14/ | Telephone | [facility] | Alanis, | Lab Order | | 2017 | | MEDICINE [address] [place] [address] | MD [place] | | | | | [facility] | [address] [place] [address] | | | | | [place] [address] | [place] [address] | | | | | [phone] | [phone] | | | | | | | [...] | | | | | [place] [address] | | | | | | [phone] | | | | | | | | +--------+ + + + + | 12/20/ | Office | Audiology | Elisabet Munson MS | | 2019 | Visit | | [facility] [address] | | | | | | [address] [place] | | | | | | [place] [address] | | | | | | [phone] | | | | | | | | +--------+ + + + + | 12/20/ | Office | Otolaryngology | Ulysses Genao MD | | | 2019 | Visit | | [address] [place] | | | | | | [address] [place], | | | | | | [place] [address] | | | | | | [phone] | | | | | | | | +--------+ + + + + documented as of this encounter Visit Diagnoses + + | Diagnosis | + + | Preop examination - Primary Preoperative examination, unspecified | + + documented in this encounter"
--- OUTSIDE RECORDS SUMMARY | ~2019-10-16 | XMS | Encounter Summary ---
Demographics + + + | Address | [address] | | | [place] [address] | + + + | Home Phone [...] 07/30/ | Office | Pain Center at [facility] | Lukasz Charles, | Major Depressive | | 2006 | Visit | [address] | PhD [address] | Disorder, Recurrent | | | | Mailcode: [facility] | [place], [place] | Episode, Moderate; | | | | [facility] | [address] | Chronic Abdominal | | | | and Healing, | [phone] | Pain; Herniated | | | | Building | | Lumbar | | | | Floor [place], [place] | | Intervertebral Disc | | | | [address] | | L4-5; 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 Ms. Meehan has depression and frustration. She is having some difficulty increasing her a ctivity level but she is putting forth effort. She appears to have good insight. Diagnosis: [place] I: 1. (296.32) Major depressive disorder, recurrent, moderate. 2. (309.24) Adjustment disorder with anxiety. 3. 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 [place] II: Deferred [place] III: abdominal pain, migraine headache, low back pain. [place] IV: low finances [place] V: GAF 50 Plan: Return in 2 weeks. Check pacing, relaxation, activity. Check trip to [place]. Check mood. Continue cognitive/behavioral therapy. Total time spent with patient was approximately 45 minutes. LUKASZ CHARLES PHD [facility] [address] [facility] [address] [address] documented in this encount er Plan of [...]
--- OUTSIDE RECORDS SUMMARY | ~2019-10-16 | XMS | Encounter Summary ---
Demographics + + + | Address | [address] | | | [place] [address] | + + + | Home Phone [...] Team Providers + +------+ + | Care Experience Planning Strategist Name | Role | Phone | [...] | | | | | [place]ina [place], | | | | | | [place] [address] | | | +--------+ + + + [...] | Patient: BELINDA MEEHAN J Med Rec: [id number] Sex F Bdate: 1960 | | Date/Time Data | | Entered Into [facility] | | Anesth PostOp | | Surgery Date [id number] 12/09/04 10:30 | | [id number] 11/23/03 10:57 | | Anesthesiologist SYEDA ANDREWS [...]
--- OUTSIDE RECORDS SUMMARY | ~2019-10-16 | XMS | Encounter Summary ---
Demographics + + + | Address | [address] | | | [place] [address] | + + + | Home Phone [...] Providers + +------+ + | Care Heel Nail Rasper Name | Role | Phone | + [...]
--- OUTSIDE RECORDS SUMMARY | ~2019-10-16 | XMS | Encounter Summary ---
Demographics + + + | Address | [address] | | | [place] [address] | + + + | Home Phone [...] Team Providers + +------+ + | Care Compilation Clerk Name | Role | Phone | [...] | | | | Clinical Nutrition | [place], [place] | | | | | [address] | [address] | | | | | Loop Mailcode: OPC5 | [phone] | | | | | Outpatient Clinic | | | | | | [facility] [place], | | | | | | [place] [address] | | | | | | [phone] | | | +--------+ + + + [...]
--- OUTSIDE RECORDS SUMMARY | ~2019-10-16 | XMS | Encounter Summary ---
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 Provider: DELFINA MOLINA ANP Nathalia Garrett - 007 11:16 AM PDT Physical Therapy Medicare Progress Note Date: 11/27/2006 Belinda Barnes Shefali [id number]. 1960 Start of Care: 11/24/2006 Referring Provider: [...] the free margin and undersurface of the internal investigator horn of the medial meniscus suspicious for [...] gait using bilateral lofstrand crutches Patient's goals: detention: Ambulation with single based cane Treatment: Patient [...] are to increased strength and endurance . longterm goals: Improve gait so patient can ambulate with single based cane. Plan: Patient will return for f/u visit in 2 weeks and at that time will progress in core, hip, and knee strengthening regime. Treatment began: 1100 Treatment ended: 1200 Nathalia Arora, Physical Therapist License #[id number] documented in this encoun ter Plan of [...]
--- OUTSIDE RECORDS SUMMARY | ~2019-10-16 | XMS | Encounter Summary ---
Demographics + + + | Address | [address] | | | [place] [address] | + + + | Home Phone [...] Team Providers + +------+ + | Care Drag Out Man Name | Role | Phone | + +------+ + | Pedrito Gutierrez MD | PCP | | + +------+ + Encounter Details +--------+ + + + + | Date | Type | Department | Care Team | Description | +--------+ + + + + | 12/26/ | Telephone | [facility] | Lukasz Ogden, | | | 2007 | | Pain Center at | PhD [address] | | | | | [facility] | [place], [place] | | | | | [address] | [address] | | | | | Mailcode: CH15P | [phone] | | | | | [facility] | | | | | | and [place], | | | | | | Building | | | | | | [place], [place] | | | | | | [address] | | | | | | [phone] | | | +--------+ + + + [...]
--- OUTSIDE RECORDS SUMMARY | ~2019-10-16 | XMS | Encounter Summary ---
Demographics + + + | Address | [address] | | | [place] [address] | + + + | Home Phone [...] Team Providers + +------+ + | Care Moisture Machine Tender Name | Role | Phone [...] + + | 05/14/ | Telephone | [facility] | Alanis, | Referral | | 2017 | | MEDICINE [address] [place] [address] | MD [place] | | | | | [facility] | [address] [place] [address] | | | | | [place] [address] | [place] [address] | | | | | [phone] | [phone] | | | | | | | [...] | | | | | [place] [address] | | | | | | [phone] | | | | | | | | +--------+ + + + + | 12/20/ | Office | Audiology | Elisabet Munson MS | | 2019 | Visit | | [facility] [address] | | | | | | [address] | | | | | | [place] [address] | | | | | | [phone] | | | | | | | | +--------+ + + + + | 12/20/ | Office | Otolaryngology | Ulysses Genao MD | | | 2020 | Visit | | [address] | | | | | | [address] [place], | | | | | | [place] [address] | | | | | | [phone] | | | | | | | | +--------+ + + + + documented as of this encounter Visit Diagnoses Not on filedocumented in this encounter"
--- OUTSIDE RECORDS SUMMARY | ~2019-10-16 | XMS | Encounter Summary ---
Demographics + + + | Address | [address] | | | [place] [address] | + + + | Home Phone [...] Team Providers + +------+ + | Care Draughtsman Name | Role | Phone | + [...] Required | | | i, | [address] | | | | | osteoporosis | Sulaim[address]Iv[address] | [place], | | | | | without | , MD [address] | [place] [address] | | | | | current | [address] | Phone: | | | | | pathological | [place], | [phone] | | | | | fracture | [place] | Fax: | | | | | | [address] | [phone] | | | | | | Phone: | | | | | | | [phone] | | | | | | | Fax: | | | | | | | [phone] | | +--------+ + + + + [...] Required | | | i, | [address] | | | | | osteoporosis | Sulaiman-Russell | [place], | | | | | without | , MD [address] | [place] [address] | | | | | current | [address] | Phone: | | | | | pathological | [place], | [phone] | | | | | fracture | [place] | Fax: | | | | | | [address] | [phone] | | | | | | Phone: | | | | | | | [phone] | | | | | | | Fax: | | | | | | | [phone] | | +--------+ + + + + + Encounter Details +--------+ + + + + | Date | Type | Department | Care Team | Description | +--------+ + + + + | 10/14/ | Hospital | [facility] | Alanis, | Age-related | | 2019 | Encounter | MED CTR OP INFUSION | MD [place] | osteoporosis without | | | | [address] | [address] [facility] | current | | | | [place] | [place] [address] | pathological | | | | [address] | [phone] | fracture (Primary | | | | [phone] | | Dx) | +--------+ + + [...] | | | | | [place] [address] | | | | | | [phone] | | | | | | | | +--------+ + + + + | 12/20/ | Office | Audiology | Elisabet Munson MS | | | 2019 | Visit | | [facility] [address] | | | | | | [address] [place] | | | | | | [place] [address] | | | | | | [phone] | | | | | | | | +--------+ + + + + | 12/20/ | Office | Otolaryngology | Ulysses Genao MD | | | 2019 | Visit | | [address] [place] | | | | | | [address] [place], | | | | | | [place] [address] | | | | | | [phone] | | | | | | | [...]
--- OUTSIDE RECORDS SUMMARY | ~2019-10-16 | XMS | Encounter Summary ---
Demographics + + + | Address | [address] | | | [place] [address] | + + + | Home Phone [...] Providers + +------+ + | Care Director Television News Name | Role | Phone | [...] + + | 06/02/ | Telephone | [facility] | Alanis, | Results | | 2018 | | MEDICINE [address] | MD [place] | | | | | [facility] | [address] [place] [address] | | | | | [place] [address] | [place] [address] | | | | | [phone] | [phone] | | | | | | | [...] | | | | | [place] [address] | | | | | | [phone] | | | | | | | | +--------+ + + + + | 12/20/ | Office | Audiology | Elisabet Munson MS | | 2019 | Visit | | [facility] [address] | | | | | | [address] [place] | | | | | | [place] [address] | | | | | | [phone] | | | | | | | | +--------+ + + + + | 12/20/ | Office | Otolaryngology | Ulysses Genao MD | | | 2020 | Visit | | [address] | | | | | | [address] [place], | | | | | | [place] [address] | | | | | | [phone] | | | | | | | | +--------+ + + + + documented as of this encounter Visit Diagnoses Not on filedocumented in this encounter"
--- OUTSIDE RECORDS SUMMARY | ~2019-10-16 | XMS | Encounter Summary ---
Demographics + + + | Address | [address] | | | [place] [address] | + + + | Home Phone [...] Providers + +------+ + | Care Scaffold Erector Name | Role | Phone | [...] | | | | behavior of | [facility] | Orthopaedics | | | | | bone and | & Fractur | [address] | | | | | articular | [address] | Naeem Mcrae | | | | | cartilage | [address] | Rd | | | | | Procedures | [place], | [place], [place] | | | | | REQUEST TO | [place] [address] | [address] | | | | | SURGERY | Phone: | | | | | | USPS LETTER CARRIER | [phone] | | | | | | SD BONE | Fax: | | | | | | BIOPSY,OPEN | [phone] | | | | | | DEEP SD | | | | | | | EXCIS/CURET | | | | | | | BENIGN TUMR | | | | | | | CLAV/SCAPULA | | | | | | | SD EXCIS | | | | | | | BENIGN TUMR | | | | | | | CLAV/SCAP,AU | | | | | | | TOGRFT SD | | | | | | [...] | | | | | | | [facility] | Orthopaedics | | | | | | & Fractur | [address] | | | | | | [address] | Naeem Mcrae | | | | | | Nirav Kovacs | [place] | | | | | | [place], | [place], [place] | | | | | | [place] [address] | [address] | | | | | | Phone: | | | | | | | [phone] | | | | | | | Fax: | | | | | | | [phone] | | +--------+--------+ + + + + [...] | (Primary Dx) | | | | [place], [place] | | | | | | [address] | | | | | | [phone] | | | +--------+---------+ + + + [...] 08/2007 right knee Hx lumbar fusion 05/2008 L5-L1adttcr with bone spur removals Hx appendectomy Hx cholecystectomy Hx section Hx hysterectomy Gastric bypass Mayra Padgett wt 278 01/18 Paniculectomy Allergies: Allergies Allergen Reactions Keflex (Cephalexin) Sulfa (Sulfonamides) Codeine Penicillins Clindamycin Cipro (Ciprofloxacin) Tramadol Morphine IM ( only in [facility]) made gut pain worse 08/27/06: Trial of oral MSIR caused leg swelling Clarithromycin Hives Mainly in the legs Fawlzwb-bzjpwzsdjq-unm-caff Balance problems Amitriptyline Grand mal seizures Medications: [...] signs are noted as recorded by the Sales Agent Food Vending Service. General: Alert, awake, and oriented x3. No [...] to discuss treatment of this lesion. I suagr l review her imaging with our musculoskeletal [...] No: | | | | | | [id number] Name: | | | | | | BELINDA MEEHAN | | | | | | Birthday: 1960 | | | | | | Sex: F | | | | | | Alias:Patient Location: | | | | | | [id number]: Outpatient | | | | | | ActiveOrdering | | | | | | Physician: JOSÉ MIGUEL | | | | | | MARYSOL MORENO SCAPULA | | | | | | COMPLETE completed on | | | | | | 01/01/2009 11:55 | | | | | | AMAccession # | | | | | | [id number]:LEFT | | | | | | SCAPULA [...]
--- OUTSIDE RECORDS SUMMARY | ~2019-10-16 | XMS | Encounter Summary ---
Demographics + + + | Address | [address] | | | [place] [address] | + + + | Home Phone [...] Providers + +------+ + | Care Rental Management Trainee Name | Role | Phone | [...] Acute pain | Emmy-Tajt | [address] | | | | | of right | i, | [place], | | | | | shoulder | [place] | [place] | | | | | Procedures | , [place] [address] | [address] | | | | | MRI Shoulder | [address] | Phone: | | | | | Right wo | [place], | [phone] | | | | | Contrast | [place] | Fax: | | | | | | [address] | [phone] | | | | | | Phone: | | | | | | | [phone] | | | | | | | Fax: | | | | | | | [phone] | | +--------+--------+ + + + + [...] Acute pain | Emmy-Tajt | [address] | | | | | of right | i, | [place], | | | | | shoulder | [place] | [place] | | | | | Procedures | , [address] | [address] | | | | | MRI Shoulder | [address] | Phone: | | | | | Right wo | [place], | [phone] | | | | | Contrast | [place] | Fax: | | | | | | [address] | [phone] | | | | | | Phone: | | | | | | | [phone] | | | | | | | Fax: | | | | | | | [phone] | | +--------+--------+ + + + + Encounter Details +--------+ + + + + | Date | Type | Department | Care Team | Description | +--------+ + + + + | 02/17/ | Hospital | [facility] | Emmy-Kamlesh, | Acute pain of right | | 2018 | Encounter | MED CTR MRI [address] | MD [place] | shoulder | | | | [address] [place], | [address] [place] | | | | | [place] [address] | [place] [address] | | | | | [phone] | | | | | | | [...] | | | | | [place] [address] | | | | | | [phone] | | | | | | | | +--------+ + + + + | 12/20/ | Office | Audiology | Elisabet Munson MS | | | 2019 | Visit | | [facility] [address] | | | [address] [place] | | | | | | [place] [address] | | | | | | [phone] | | | | | | | | +--------+ + + + + | 12/20/ | Office | Otolaryngology | Ulysses Genao MD | | | 2019 | Visit | | [address] | | | | | | [address] [place], | | | | | | [place] [address] | | | | | | [phone] | | | | | | | [...]
--- OUTSIDE RECORDS SUMMARY | ~2019-10-16 | XMS | Encounter Summary ---
Demographics + + + | Address | [address] | | | [place] [address] | + + + | Home Phone [...] Providers + +------+ + | Care Route Cdl Driver Name | Role | Phone | [...] + + | 01/04/ | Office | [facility] Comprehensive | Delfina Molina, | Spondylosis with | | 2006 | Visit | Pain Center at | ANP | Myelopathy, Lumbar | | | | [facility] | | Region; Herniated | | | | [address] | | Lumbar | | | | Mailcode: CH15P | | Intervertebral Disc | | | | [facility] | | L4-5; Left Knee | | | | and Healing, | | Pain; Opioid | | | | Building | | [place], | | | | Floor [place], [place] | | Continuous ([facility]); | | | | [address] | | Migraine Headache; | | | | [phone] | | Fibromyalgia | | | | [...] Belinda Meehan is a 46 y.o. female [facility] Comprehensive Pain [...] and Independent Home Exercise Program DELFINA MOLINA [facility] Comprehensive Pain Center Mail code CH 4P [place] [facility] [place] [address] [facility] [address] Ailyn Foster - 01/05/20 07 [...] medication refills today? yes [facility] Plan of Treatment Not on [...]
--- OUTSIDE RECORDS SUMMARY | ~2019-10-16 | XMS | Encounter Summary ---
Demographics + + + | Address | [address] | | | [place] [address] | + + + | Home Phone [...] Team Providers + +------+ + | Care Milliner Helper Name | Role | Phone | [...] + + | 09/12/ | Telephone | [facility] | Miranda Lambert, | Medication [...] [place] | | | | | | [address] | | | | | | [phone] | | | +--------+ + + + [...]
--- OUTSIDE RECORDS SUMMARY | ~2019-10-16 | XMS | Encounter Summary ---
Demographics + + + | Address | [address] | | | [place] [address] | + + + | Home Phone [...] Providers + +------+ + | Care State Archivist Name | Role | Phone | [...] + | 05/18/ | Refill | [facility] | Alanis, | Medication Refill | | 2016 | | MEDICINE [address] [place] [address] | MD [place] | | | | | [facility] | [address] [place] [address] | | | | | [place] [address] | [place] [address] | | | | | [phone] | [phone] | | | | | | | [...] | | | | | [place] [address] | | | | | | [phone] | | | | | | | | +--------+ + + + + | 12/20/ | Office | Audiology | DarioElisabet ramires MS | | | 2019 | Visit | | [facility] [address] | [address] [place] | | | | | | [place], [place] [address] | | | | | | [phone] | | | | | | | | +--------+ + + + + | 12/20/ | Office | Otolaryngology | Ulysses Genao MD | | | 2019 | Visit | | [address] | | | | | | [address] [place], | | | | | | [place] [address] | | | | | | [phone] | | | | | | | | +--------+ + + + + documented as of this encounter Visit Diagnoses Not on filedocumented in this encounter"
--- OUTSIDE RECORDS SUMMARY | ~2019-10-16 | XMS | Encounter Summary ---
Demographics + + + | Address | [address] | | | [place] [address] | + + + | Home Phone [...] Providers + +------+ + | Care It Technical Architect Name | Role | Phone | [...] + | 08/14/ | Refill | [facility] | Alanis, | Medication Refill | | 2018 | | MEDICINE [address] [place] [address] | MD [place] | | | | | [facility] | [address] [place] [address] | | | | | [place] [address] | [place] [address] | | | | | [phone] | [phone] | | | | | | | [...] | | | | | [place] [address] | | | | | | [phone] | | | | | | | | +--------+ + + + + | 12/20/ | Office | Audiology | DarioElisabet ramires MS | | | 2019 | Visit | | [facility] [address] [place] | | | | | | [place], [place] [address] | | | | | | [phone] | | | | | | | | +--------+ + + + + | 12/20/ | Office | Otolaryngology | Ulysses Genao MD | | | 2019 | Visit | | [address] | | | | | | [address] [place], | | | | | | [place] [address] | | | | | | [phone] | | | | | | | | +--------+ + + + + documented as of this encounter Visit Diagnoses Not on filedocumented in this encounter"
--- OUTSIDE RECORDS SUMMARY | ~2019-10-16 | XMS | Encounter Summary ---
Demographics + + + | Address | [address] | | | [place] [address] | + + + | Home Phone [...] + + | 04/09/ | Telephone | [facility] Division of | Carlos Arreola, | Erroneous Encounter | | 2005 | | Gastroenterology/Hep | [address] | - Disregard | | | | atology [address] | (duplicate call; see | | | | [address] | [place] [address] | other encounter ) | | | | Mailcode: [id number] | [phone] | | | | | [facility] | | | | | | [address] | | | | | | [place], [place] | | | | | | [address] | | | | | | [phone] | | | +--------+ + + + [...]
--- OUTSIDE RECORDS SUMMARY | ~2019-10-16 | XMS | Encounter Summary ---
Demographics + + + | Address | [address] | | | [place] [address] | + + + | Home Phone [...] Team Providers + +------+ + | Care Seafood Fisherman Name | Role | Phone | + [...] Required | | | i, | [place] | | | | | osteoporosis | Sulaiman-Russell | [place], | | | | | without | , MD [address] | [place] [address] | | | | | current | [address] | Phone: | | | | | pathological | [place], | [phone] | | | | | fracture | [place] | Fax: | | | | | | [address] | [phone] | | | | | | Phone: | | | | | | | [phone] | | | | | | | Fax: | | | | | | | [phone] | | +--------+ + + + + + Reason for Visit + + + | Reason | Comments | + + + | Medication Orders | | + + + Encounter Details +--------+ + + + + | Date | Type | Department | Care Team | Description | +--------+ + + + + | 09/20/ | Telephone | [facility] | Alanis, | Medication Orders | | 2019 | | MEDICINE [address] [place] [address] | MD Petrona | | | | | [facility] | [address] [place] [address] | | | | | [place] [address] | [place] [address] | | | | | [phone] | [phone] | | | | | | | [...] | | [address] [facility] | | | | | | [place] [address] | | | | | | [phone] | | | | | | | | +--------+ + + + + | 12/20/ | Office | Audiology | Elisabet Munson MS | | | 2019 | Visit | | [facility] [address] | | | | | [address] [place] | | | | | | [place] [address] | | | | | | [phone] | | | | | | | | +--------+ + + + + | 12/20/ | Office | Otolaryngology | Ulysses Genao MD | | | 2019 | Visit | | [address] | | | | | | [address] [place], | | | | | | [place] [address] | | | | | | [phone] | | | | | | | [...]
--- OUTSIDE RECORDS SUMMARY | ~2019-10-16 | XMS | Encounter Summary ---
Demographics + + + | Address | [address] | | | [place] [address] | + + + | Home Phone [...] | | | | Mailcode: L223A | [place], [place] | | | | | [facility] | [address] | | | | | [address] [place], [place] | [phone] | | | | | [address] | | | | | | [phone] | | | +--------+ + + + [...]
--- OUTSIDE RECORDS SUMMARY | ~2019-10-16 | XMS | Encounter Summary ---
Demographics + + + | Address | [address] | | | [place] [address] | + + + | Home Phone [...] Providers + +------+ + | Care Psychology Assistant Name | Role | Phone | [...] Densitometry | | MD Beto | Density [facility] | | | | | Osteoporosis | [address] | [address] | | | | | Procedures | Ave | Naeem Mcrae | | | | | CONSULT TO | [place], [place] | Rd Mailcode: | | | | | BONE | [address] | [address] | | | | | DENSITOMETRY | Phone: | Naeem De La Rosa | | | | | | [phone] | [place], [place] | | | | | | Fax: | [address] | | | | | | [phone] | Phone: | | | | | | | [phone] | | | | | | | Fax: | | | | | | | [phone] | +--------+--------+ + + + + Reason [...] Sara Kovacs | | | | | [facility] | [place], [place] | | | | | [address] | [address] | | | | | [address] | [phone] | | | | | [facility] | | | | | | Physician's | | | | | | Pavilion [place], | | | | | | [place] [address] | | | | | | [phone] | | | +--------+ + + + [...]
--- OUTSIDE RECORDS SUMMARY | ~2019-10-16 | XMS | Encounter Summary ---
Demographics + + + | Address | [address] | | | [place] [address] | + + + | Home Phone [...] Providers + +------+ + | Care Meter Tester Primary Name | Role | Phone | + [...] + + | 10/18/ | Telephone | [facility] | Ulysses Genao MD | Appointment (MRI) | | 2014 | | OTOLARYNGOLOGY 301 | [address] [facility] | | | | | [address] [facility] [address] | [address] [place], | | | | | [place] | [place] [address] | | | | | [address] | [phone] | | | | | [phone] | | | +--------+ + + + [...] | | | | [facility] [address] | | | | | | [place] [address] | | | | | | [phone] | | | | | | | | +--------+ + + + + | 12/20/ | Office | Audiology | Elisabet Munson MS | | | 2019 | Visit | | [facility] | | | | | | [address] | | | | | | [place] [address] | | | | | | [phone] | | | | | | | | +--------+ + + + + | 12/20/ | Office | Otolaryngology | Ulysses Genao MD | | | 2020 | Visit | | [address] [facility] | | | | | | [address] [place], | | | | | | [place] [address] | | | | | | [phone] | | | | | | | | +--------+ + + + + documented as of this encounter Visit Diagnoses Not on filedocumented in this encounter"
--- OUTSIDE RECORDS SUMMARY | ~2019-10-16 | XMS | Encounter Summary ---
Demographics + + + | Address | [address] | | | [place] [address] | + + + | Home Phone [...] Providers + +------+ + | Care Utility System Operator Name | Role | Phone | [...] + | 01/18/ | Refill | [facility] | Alanis, | Medication Refill; | | 2018 | | MEDICINE [address] | MD Petrona | Medication Refill | | | | [facility] | [address] [place] [address] | | | | | [place] [address] | [place] [address] | | | | | [phone] | [phone] | | | | | | | [...] | | | | | [place] [address] | | | | | | [phone] | | | | | | | | +--------+ + + + + | 12/20/ | Office | Audiology | Elsiabet Munson MS | | | 2019 | Visit | | [facility] [address] | | | | | [address] [place] | | | | | | [place], [place] [address] | | | | | | [phone] | | | | | | | | +--------+ + + + + | 12/20/ | Office | Otolaryngology | Ulysses Genao MD | | | 2019 | Visit | | [address] | | | | | | [address] [place], | | | | | | [place] [address] | | | | | | [phone] | | | | | | | | +--------+ + + + + documented as of this encounter Visit Diagnoses Not on filedocumented in this encounter"
--- OUTSIDE RECORDS SUMMARY | ~2019-10-16 | XMS | Encounter Summary ---
Demographics + + + | Address | [address] | | | [place] [address] | + + + | Home Phone [...] + +------+ + | Care Head Of Partner Development Name | Role | Phone | [...] | | | | | | Mailcode: [facility] | | | | | | | [facility] Center | | | | | | | for Health | | | | | | | and Healing, | | | | | | | Building [address] | | | | | | | [facility] [place] | | | | | | | [address] | | | | | | | Phone: | | | | | | | [phone] | | | | | | | Fax: | | | | | | | [phone] | +--------+--------+ + + + + Encounter Details +--------+ + + + + | Date | Type | Department | Care Team | Description | +--------+ + + + + | 09/14/ | Hospital | [facility] PROCEDURE | Olivia, | | | 2008 | Encounter | [address] | MD Pedrito | | | | | [place] Mailcode: [facility] | | | | | | [facility] for | | | | | | Health and Healing, | | | | | | [address] | | | | | | [facility] [place] | | | | | | [address] | | | | | | [phone] | | | +--------+ + + + [...] Discharge Instructions Instructions Marleen Hogan - 09/14/2008 [facility] Endoscopy [address] [place] [address] Toll Free ext: [phone] Home Care Instructions after EGD (Upper Endoscopy) [...] hours, or on weekends and holidays Hospital Consulting Intern and have the GI doctor train reservation clerk paged. The provider who performed your procedure [...] Meehan is a 48 y.o. female MR# [id number] presents today for an EG D to [...] 01/22/2006 Tramadol 01/22/2006 Morphine Clarithromycin Hives 06/28/2007 Xmkbyru-mkbayquvte-rnm-caff 08/28/2008 See procedure note 09/14/2008 documented in [...]
--- OUTSIDE RECORDS SUMMARY | ~2019-10-16 | XMS | Encounter Summary ---
Demographics + + + | Address | [address] | | | [place] [address] | + + + | Home Phone [...] Providers + +------+ + | Care Accounting Coordinator Name | Role | Phone | + +------+ + | Maria Esther Cintron MD | PCP | | + +------+ + Encounter Details +--------+ + + + + | Date | Type | Department | Care Team | Description | +--------+ + + + + | 09/21/ | Telephone | [facility] | Chris Padgett, | | | 2008 | | [place] [address] | [address] [facility] | | | | | [place] Mailcode: CH4S | [address] | | | | | Center for Health | [place], [place] | | | | | and Healing, | [address] | | | | | Building , 6th | [phone] | | | | | Floor [place], [place] | | | | | | [address] | | | | | | [phone] | | | +--------+ + + + [...]
--- OUTSIDE RECORDS SUMMARY | ~2019-10-16 | XMS | Encounter Summary ---
Demographics + + + | Address | [address] | | | [place] [address] | + + + | Home Phone [...] Team Providers + +------+ + | Care Photogrammetric Tech Name | Role | Phone | [...] Rd | | | | | | [place], [place] | | | | | | [address] | | | +--------+ + + + [...]
--- OUTSIDE RECORDS SUMMARY | ~2019-10-16 | XMS | Encounter Summary ---
Demographics + + + | Address | [address] | | | [place] [address] | + + + | Home Phone [...] Providers + +------+ + | Care Nurse Supervisor Name | Role | Phone | [...] + + | 11/12/ | Telephone | [facility] | Alanis, | Leg Swelling | | 2017 | | MEDICINE [address] [place] [address] | MD Petrona | | | | | [facility] | [address] [place] [address] | | | | | [place] [address] | [place] [address] | | | | | [phone] | [phone] | | | | | | | [...] | | | | | [place] [address] | | | | | | [phone] | | | | | | | | +--------+ + + + + | 12/20/ | Office | Audiology | Elisabet Munson MS | | 2019 | Visit | | [facility] [address] | | | | [address] [place] | | | | | | [place] [address] | | | | | | [phone] | | | | | | | | +--------+ + + + + | 12/20/ | Office | Otolaryngology | Ulysses Genao MD | | | 2020 | Visit | | [address] | | | | | | [address] [place], | | | | | | [place] [address] | | | | | | [phone] | | | | | | | | +--------+ + + + + documented as of this encounter Visit Diagnoses Not on filedocumented in this encounter"
--- OUTSIDE RECORDS SUMMARY | ~2019-10-16 | XMS | Encounter Summary ---
Demographics + + + | Address | [address] | | | [place] [address] | + + + | Home Phone [...] Team Providers + +------+ + | Care Salt Maker Name | Role | Phone | [...] | | | | | Encounter | [place], [place] | [place] | | | | | for | [address] | [address] | | | | | long-term | | Phone: | | | | | (current) | | [phone] | | | | | use of other | | Fax: | | | | | medications | | [phone] | | | | | LBP (low [...] 04/21/ | Office | [facility] | Lukasz Charles, | Major depressive | | 2012 | Visit | [address] | PhD [address] | disorder, recurrent | | | | Mailcode: CH15P | [place], [place] | episode, moderate | | | | [place] for [facility] | [address] | ([facility]) (Primary Dx); | | | | and Healing, | [phone] | LBP (low back pain); | | | | | | Fibromyalgia; | | | | Floor [place], [place] | | Adjustment disorder | | | | [address] | | with anxiety | | | | [phone] | | | +--------+---------+ + + + [...] provider who recommended that she return to [facility] for pain assessment and treatment. [...] some changes in her living situation. Diagnosis: Huntington I: 1. (296.32) Major depressive disorder, recurrent, moderate. 2. (309.24) Adjustment disorder with anxiety. Huntington II: Deferred Huntington III: abdominal pain, migraine headache, low back pain, fibromyalgia. Huntington IV: low finances Huntington V: GAF 55-60 Plan: return in 1 month. Check mood, pain, activity. Ask about visiting with Dr. Montero, spinal cord stimulator, any changes at home. Continue cognitive/behavioral therapy. Total time spent with patient was approximately 50 minutes. LUKASZ CHARLES PHD [facility] [address] [place] [address] [place] [address] documented in this en counter Plan of [...]
--- OUTSIDE RECORDS SUMMARY | ~2019-10-16 | XMS | Encounter Summary ---
Demographics + + + | Address | [address] | | | [place] [address] | + + + | Home Phone [...] Providers + +------+ + | Care Maintenance Technician 2Nd Shift Name | Role | Phone [...] + | 09/04/ | Refill | [facility] | Alanis, | Medication Refill | | 2018 | | MEDICINE [address] [place] [address] | MD Petrona | | | | | [facility] | [address] [place] [address] | | | | | [place] [address] | [place] [address] | | | | | [phone] | [phone] | | | | | | | [...] | | | | | [place] [address] | | | | | | [phone] | | | | | | | | +--------+ + + + + | 12/20/ | Office | Audiology | DarioElisabet ramires MS | | | 2019 | Visit | | [facility] [address] | | [address] [place] | | | | | | [place], [place] [address] | | | | | | [phone] | | | | | | | | +--------+ + + + + | 12/20/ | Office | Otolaryngology | Ulysses Genao MD | | | 2019 | Visit | | [address] | | | | | | [address] [place], | | | | | | [place] [address] | | | | | | [phone] | | | | | | | | +--------+ + + + + documented as of this encounter Visit Diagnoses Not on filedocumented in this encounter"
--- OUTSIDE RECORDS SUMMARY | ~2019-10-16 | XMS | Encounter Summary ---
Demographics + + + | Address | [address] | | | [place] [address] | + + + | Home Phone [...] Team Providers + +------+ + | Care Scientist Immunology Name | Role | Phone | + [...] + | 06/11/ | Refill | [facility] | Alanis, | Medication Refill | | 2017 | | MEDICINE [address] [place] [address] | MD Petrona | | | | | [facility] | [address] [place] [address] | | | | | [place] [address] | [place] [address] | | | | | [phone] | [phone] | | | | | | | [...] | | | | | [place] [address] | | | | | | [phone] | | | | | | | | +--------+ + + + + | 12/20/ | Office | Audiology | DarioElisabet ramires MS | | | 2019 | Visit | | [facility] [address] | | [address] [place] | | | | | | [place], [place] [address] | | | | | | [phone] | | | | | | | | +--------+ + + + + | 12/20/ | Office | Otolaryngology | Ulysses Genao MD | | | 2019 | Visit | | [address] | | | | | | [address] [place], | | | | | | [place] [address] | | | | | | [phone] | | | | | | | | +--------+ + + + + documented as of this encounter Visit Diagnoses Not on filedocumented in this encounter"
--- OUTSIDE RECORDS SUMMARY | ~2019-10-16 | XMS | Encounter Summary ---
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 Diagnosis: Boston I: 1. (296.32) Major depressive disorder, recurrent, moderate. 2. (309.24) Adjustment disorder with anxiety. 3. 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 Boston II: Deferred Boston III: abdominal pain, migraine headache, low back pain. Boston IV: low finances Boston V: GAF 55-60 Plan: Return in 3 months. Check mood, knee surgery, pacing, relaxation, activity, distraction. Continue cognitive/behavioral therapy. Discuss need for further sessions. Total time spent with patient was approximately 45 minutes. LUKASZ CHARLES PHD [facility] [address] [facility], 4th [place] [address] documented in this encount er Plan of [...] Moderate | | | | | | ([facility]) Spondylosis | | | [...]
--- OUTSIDE RECORDS SUMMARY | ~2019-10-16 | XMS | Encounter Summary ---
Demographics + + + | Address | [address] | | | [place] [address] | + + + | Home Phone [...] Providers + +------+ + | Care Instructor Psychiatric Aide Name | Role | Phone | [...] + | 01/20/ | Refill | [facility] | Alanis, | Medication Refill | | 2017 | | MEDICINE [address] [place] [address] | MD Petrona | | | | | [facility] | [address] [place] [address] | | | | | [place] [address] | [place] [address] | | | | | [phone] | [phone] | | | | | | | [...] | | | | | [place] [address] | | | | | | [phone] | | | | | | | | +--------+ + + + + | 12/20/ | Office | Audiology | DarioElisabet ramires MS | | | 2019 | Visit | | [facility] [address] [place] | | | | | | [place], [place] [address] | | | | | | [phone] | | | | | | | | +--------+ + + + + | 12/20/ | Office | Otolaryngology | Ulysses Genao MD | | | 2019 | Visit | | [address] | | | | | | [address] [place], | | | | | | [place] [address] | | | | | | [phone] | | | | | | | | +--------+ + + + + documented as of this encounter Visit Diagnoses Not on filedocumented in this encounter"
--- OUTSIDE RECORDS SUMMARY | ~2019-10-16 | XMS | Encounter Summary ---
Demographics + + + | Address | [address] | | | [place] [address] | + + + | Home Phone [...] Providers + +------+ + | Care Staff Field Engineer Name | Role | Phone | [...] Results | | 2017 | | MEDICINE [address] [place] [address] | MD Petrona | | | | | [facility] | [address] [place] [address] | | | | | [place] [address] | [place] [address] | | | | | [phone] | [phone] | | | | | | | [...] | | | | | [place] [address] | | | | | | [phone] | | | | | | | | +--------+ + + + + | 12/20/ | Office | Audiology | Elisabet Munson MS | | 2019 | Visit | | [facility] [address] | [address] [place] | | | | | | [place] [address] | | | | | | [phone] | | | | | | | | +--------+ + + + + | 12/20/ | Office | Otolaryngology | Ulysses Genao MD | | | 2020 | Visit | | [address] | | | | | | [address] [place], | | | | | | [place] [address] | | | | | | [phone] | | | | | | | | +--------+ + + + + documented as of this encounter Visit Diagnoses Not on filedocumented in this encounter"
--- OUTSIDE RECORDS SUMMARY | ~2019-10-16 | XMS | Encounter Summary ---
Demographics + + + | Address | [address] | | | [place] [address] | + + + | Home Phone [...] Team Providers + +------+ + | Care Rover Tender Name | Role | Phone | [...] | | | [facility] | [place], [place] | | | | | [address] | [address] | | | | | [address] | [phone] | | | | | [facility] | | | | | | Physician's | | | | | | Pavilion [place], | | | | | | [place] [address] | | | | | | [phone] | | | +--------+ + + + [...]
--- OUTSIDE RECORDS SUMMARY | ~2019-10-16 | XMS | Encounter Summary ---
Demographics + + + | Address | [address] | | | [place] [address] | + + + | Home Phone [...] + | 08/31/ | Refill | [facility] | Alanis, | Medication Refill | | 2017 | | MEDICINE [address] [place] [address] | MD Petrona | | | | | [facility] | [address] [place] [address] | | | | | [place] [address] | [place] [address] | | | | | [phone] | [phone] | | | | | | | [...] | | | | | [place] [address] | | | | | | [phone] | | | | | | | | +--------+ + + + + | 12/20/ | Office | Audiology | Elisabet Munson | | | 2019 | Visit | | [facility] [address] | | [address] [place] | | | | | | [place] [address] | | | | | | [phone] | | | | | | | | +--------+ + + + + | 12/20/ | Office | Otolaryngology | Ulysses Genao MD | | | 2019 | Visit | | [address] | | | | | | [address] [place], | | | | | | [place] [address] | | | | | | [phone] | | | | | | | | +--------+ + + + + documented as of this encounter Visit Diagnoses + + | Diagnosis | + + | Chronic bilateral low back pain without sciatica | + + documented in this encounter"
--- OUTSIDE RECORDS SUMMARY | ~2019-10-16 | XMS | Encounter Summary ---
Demographics + + + | Address | [address] | | | [place] [address] | + + + | Home Phone [...] Team Providers + +------+ + | Care Lockstitch Binder Name | Role | Phone | [...] | | | [facility] | [place], [place] | | | | | [address] | [address] | | | | | [address] | [phone] | | | | | [facility] | | | | | | Physician's | | | | | | Pavilion [place], | | | | | | [place] [address] | | | | | | [phone] | | | +--------+--------+ + + + [...]
--- OUTSIDE RECORDS SUMMARY | ~2019-10-16 | XMS | Encounter Summary ---
Demographics + + + | Address | [address] | | | [place] [address] | + + + | Home Phone [...] Team Providers + +------+ + | Care Load Dispatcher Local Name | Role | Phone | [...]
--- OUTSIDE RECORDS SUMMARY | ~2019-10-16 | XMS | Encounter Summary ---
Demographics + + + | Address | [address] | | | [place] [address] | + + + | Home Phone [...] Team Providers + +------+ + | Care Advisory Internship Name | Role | Phone | [...] (has been | | 2007 | | [place] [address] | [address] | in the bathroom | | | | Ave Mailcode: CH4S | [facility] | since one this | | | | [facility] | [place], [place] | morning with | | | | and Healing, | [address] | IBS/dumping syndrome | | | | Building [address], | [phone] | symptoms) | | | | Floor [place], [place] | | | | | | [address] | | | | | | [phone] | | | +--------+ + + + [...]
--- OUTSIDE RECORDS SUMMARY | ~2019-10-16 | XMS | Encounter Summary ---
Demographics + + + | Address | [address] | | | [place] [address] | + + + | Home Phone [...] Team Providers + +------+ + | Care Hospitality Intern Name | Role | Phone | [...] + + | 03/31/ | Office | [facility] | Petra Delfina, | Encounter for | | 2006 | Visit | Pain Center at | ANP | Long-Term (Current) | | | | [facility] | | Use of Opioids; Left | | | | [address] | | Knee Pain; | | | | Mailcode: CH15P | | Arthroplasty of the | | | | [facility] | | Left Knee; DJD | | | | and Healing, | | (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 female [facility] Return Visit [...] in her continuing here at the [facility] until her bilateral knee surgical [...] any concerns or questions. DELFINA MOLINA [facility] Mail code CH 4P [facility] and [address] [address] Tasha Can - 03/31/2007 9:15 [...]
--- OUTSIDE RECORDS SUMMARY | ~2019-10-16 | XMS | Encounter Summary ---
Demographics + + + | Address | [address] | | | [place] [address] | + + + | Home Phone [...] Providers + +------+ + | Care Client Experience Manager Name | Role | Phone [...] + | 01/14/ | Refill | [facility] | Alanis, | Medication Refill | | 2017 | | MEDICINE [address] [place] [address] | MD Petrona | | | | | [facility] | [address] [place] [address] | | | | | [place] [address] | [place] [address] | | | | | [phone] | [phone] | | | | | | | [...] | | | | | [place] [address] | | | | | | [phone] | | | | | | | | +--------+ + + + + | 12/20/ | Office | Audiology | DarioElisabet ramires MS | | | 2019 | Visit | | [facility] [address] | | | | | [address] [place] | | | | | | [place], [place] [address] | | | | | | [phone] | | | | | | | | +--------+ + + + + | 12/20/ | Office | Otolaryngology | Ulysses Genao MD | | | 2019 | Visit | | [address] | | | | | | [address] [place], | | | | | | [place] [address] | | | | | | [phone] | | | | | | | | +--------+ + + + + documented as of this encounter Visit Diagnoses Not on filedocumented in this encounter"
--- OUTSIDE RECORDS SUMMARY | ~2019-10-16 | XMS | Encounter Summary ---
Demographics + + + | Address | [address] | | | [place] [address] | + + + | Home Phone [...] Team Providers + +------+ + | Care Compress Engineer Name | Role | Phone | [...] [address] | | | | | [place], [place] | [place], [place] | | | | | [address] | [address] | | | | | [phone] | [phone] | | | | | | | [...] DEPARTMENT OF | [address] | [place] [address] | | | PATHOLOGY | [address] | | | + + + + + | [facility] DEPARTMENT OF | [address] | [place] [address] | | | PATHOLOGY | [address] [...] + + | [facility] DEPARTMENT OF | [address] | [place] [address] | | | PATHOLOGY | [address] | | | + + + + + | [facility] DEPARTMENT OF | [address] | [place] [address] | | | PATHOLOGY | [address] [...] Performed At | + + + | [id number] Estimated GFR > 60 mL/min/1.73 sq m if non- | [facility] | | [id number] Estimated GFR > 60 mL/min/1.73 sq m [...] [facility] | [address] | [place] [address] | | | PATHOLOGY | [address] | | | + + + + + | [facility] | [address] | [place] [address] | | | PATHOLOGY | [address] | | | + + + + + documented in this encounter Visit Diagnoses Not on filedocumented in this encounter"
--- OUTSIDE RECORDS SUMMARY | ~2019-10-16 | XMS | Encounter Summary ---
Demographics + + + | Address | [address] | | | [place] [address] | + + + | Home Phone [...] Providers + +------+ + | Care Front Desk Attendant Name | Role | Phone | [...] + | 10/05/ | Refill | [facility] | Alanis, | Medication Refill | | 2017 | | MEDICINE [address] [place] [address] | MD Petrona | | | | | [facility] | [address] [place] [address] | | | | | [place] [address] | [place] [address] | | | | | [phone] | [phone] | | | | | | | [...] | | | | | [place] [address] | | | | | | [phone] | | | | | | | | +--------+ + + + + | 12/20/ | Office | Audiology | DarioElisabet ramires MS | | | 2019 | Visit | | [facility] [address] | | | | | | [address] [place] | | | | | | [place], [place] [address] | | | | | | [phone] | | | | | | | | +--------+ + + + + | 12/20/ | Office | Otolaryngology | Ulysses Genao MD | | | 2019 | Visit | | [address] | | | | | | [address] [place], | | | | | | [place] [address] | | | | | | [phone] | | | | | | | | +--------+ + + + + documented as of this encounter Visit Diagnoses Not on filedocumented in this encounter"
--- OUTSIDE RECORDS SUMMARY | ~2019-10-16 | XMS | Encounter Summary ---
Demographics + + + | Address | [address] | | | [place] [address] | + + + | Home Phone [...] Providers + +------+ + | Care Line Department Supervisor Name | Role | Phone | + +------+ + | Sulaiman Carrera MD | PCP | | + +------+ + Encounter Details +--------+ + + + + | Date | Type | Department | Care Team | Description | +--------+ + + + + | 08/26/ | Ancillary | Registration 9901 | | | | 2006 | Registratio | [address] | | | | | n | Peterson Mailcode: RPB07 | | | | | | [place], [place] | | | | | | [address] | | | | | | [phone] | | | +--------+ + + + [...]
--- OUTSIDE RECORDS SUMMARY | ~2019-10-16 | XMS | Encounter Summary ---
Demographics + + + | Address | [address] | | | [place] [address] | + + + | Home Phone [...] Providers + +------+ + | Care Clinic Nurse Name | Role | Phone [...] [address] | | | | | | [place], [place] | | | | | | [address] | | | | | | [phone] | | | +--------+ + + + [...] | | | | | [facility] | | | | | | Laboratories. | | | | + + + + + + + + | Specimen | + + | | + + + + + + + | Performing | Address | City/State/Zipcode | Phone Number | | Organization | | | | + + + + + | [facility] | [address] | [place] [address] | | | LABORATORY | | | | + + + + + documented in this encounter Visit Diagnoses Not on filedocumented in this encounter"
--- OUTSIDE RECORDS SUMMARY | ~2019-10-16 | XMS | Encounter Summary ---
Demographics + + + | Address | [address] | | | [place] [address] | + + + | Home Phone [...] Team Providers + +------+ + | Care Rotating Field Assembler Name | Role | Phone | [...] + | 12/14/ | Refill | [facility] | Alanis, | Medication Refill | | 2018 | | MEDICINE [address] [place] [address] | MD Petrona | | | | | [facility] | [address] [place] [address] | | | | | [place] [address] | [place] [address] | | | | | [phone] | [phone] | | | | | | | [...] | | | | | [place] [address] | | | | | | [phone] | | | | | | | | +--------+ + + + + | 12/20/ | Office | Audiology | DarioElisabet ramires MS | | | 2019 | Visit | | [facility] [address] | | | | | | [address] [place] | | | | | | [place], [place] [address] | | | | | | [phone] | | | | | | | | +--------+ + + + + | 12/20/ | Office | Otolaryngology | Ulysses Genao MD | | | 2019 | Visit | | [address] | | | | | | [address] [place], | | | | | | [place] [address] | | | | | | [phone] | | | | | | | | +--------+ + + + + documented as of this encounter Visit Diagnoses Not on filedocumented in this encounter"
--- OUTSIDE RECORDS SUMMARY | ~2019-10-16 | XMS | Encounter Summary ---
Demographics + + + | Address | [address] | | | [place] [address] [...] Providers + +------+ + | Care Commercial Artist Name | Role | Phone | [...] 2006 | Visit | Rheumatology [address] | SKILLED NURSING FACILITY COUNSELOR | Fibromyalgia; | | | | [address] | | Fibromyalgia | | | | Mailcode: OPC5 | | | | | | Outpatient Clinic | | | | | | [facility], | | | | | | [place] [address] | | | | | | [phone] | | | +--------+---------+ + + + [...] 4-5/5 for all major deltoids, biceps, triceps. Account Clerk slightly weak. Tone is normal. There is [...] spine MRI to be done at [facility]. A few of these patients [...] + + +--------+ + + | [place] INJECT TRIGGER | Procedures | Routin | [...]
--- OUTSIDE RECORDS SUMMARY | ~2019-10-16 | XMS | Encounter Summary ---
Demographics + + + | Address | [address] | | | [place] [address] | + + + | Home Phone [...] Providers + +------+ + | Care Press Operator Heavy Duty Name | Role | Phone | + [...] Refill Request | | 2009 | | [place] [address] | [address] | (SUCRALFATE) | | | | Bethanie Mailcode: CH4S | [facility] | | | | | [facility] | [place], [place] | | | | | and Healing, | [address] | | | | | [facility] | [phone] | | | | | Floor [place], [place] | | | | | | [address] | | | | | | [phone] | | | +--------+--------+ + + + [...]
--- OUTSIDE RECORDS SUMMARY | ~2019-10-16 | XMS | Encounter Summary ---
Demographics + + + | Address | [address] | | | [place] [address] | + + + | Home Phone [...] Providers + +------+ + | Care Public Service Representative Name | Role | Phone [...] Pavilion | | | | | | [place], [place] | | | | | | [address] | | | | | | [phone] | | | +--------+ + + + [...]
--- OUTSIDE RECORDS SUMMARY | ~2019-10-16 | XMS | Encounter Summary ---
Demographics + + + | Address | [address] | | | [place] [address] | + + + | Home Phone [...] Providers + +------+ + | Care Labor Operator Name | Role | Phone | [...] as of this encounter Progress Notes Interface, [employer] In - 01/13/2005 9:03 AM PDT [id number] GEOVANNI [facility] Clinic Date: 01/02/2005 Clinic: [facility] Subjective: Ms. Meehan presents today on a walk-in basis for evaluation of some discharge from her panniculectomy incisions over her medial thighs. She reports that she was in town today from [place], [place], to get some labs drawn at [...] Sree Riley M.D. Chris Padgett M.D. / [id number] / [id number] / [id number] / [id number] C: 01/08/2005 cmw documented i n this encounter Plan of Treatment Not on filedocumented as of this encounter Visit Diagnoses Not on filedocumented in this encounter"
--- OUTSIDE RECORDS SUMMARY | ~2019-10-16 | XMS | Encounter Summary ---
Demographics + + + | Address | [address] | | | [place] [address] | + + + | Home Phone [...] Providers + +------+ + | Care Brake Engineer Name | Role | Phone | + +------+ + | Maria Esther Cintron MD | PCP | | + +------+ + Encounter Details +--------+ + + + + | Date | Type | Department | Care Team | Description | +--------+ + + + + | 10/27/ | Telephone | Dig[facility]ive [facility] | Chris Padgett, | | | 2008 | | [place] [address] | [address] [facility] | | | | | [place] Mailcode: CH4S | Naeem Mcrae | | | | | [facility] | [place], [place] | | | | | and Healing, | [address] | | | | | Building , 6th | [phone] | | | | | Floor [place], [place] | | | | | | [address] | | | | | | [phone] | | | +--------+ + + + [...]
--- OUTSIDE RECORDS SUMMARY | ~2019-10-16 | XMS | Encounter Summary ---
Demographics + + + | Address | [address] | | | [place] [address] | + + + | Home Phone [...] Providers + +------+ + | Care Pipe Liner Name | Role | Phone | [...] | Transcriptions | + + | Interface, Train Director In - 06/05/2005 5:20 AM PST Date: | | 11/22/2003Attending Surgeon: Chris Padgett M.D.Records Management Technician(s): | | Ramon Valentine M.D.Preoperative Diagnosis:Morbid obesity.Postoperative [...] our proximal transected portion down and did nxurp-sj-vnvj stapled jejunojejunostomy | | using a single [...] to this antecolic and antegastric andperformed a fmdj-ee-qmel gastrojejunostomy | | after placing a posteriorinterrupted [...] Valentine | | Syed Padgett M.D.MOOKIE / [id number] / [id number] / [id number] / [id number]: 11/22/2003T: | | 11/22/2003 | |cm to [...] transected portion down and did a | |zsvf-at-fkus stapled jejunojejunostomy using a single firing blue [...] antecolic and antegastric and | |performed a wubl-ic-zlgx gastrojejunostomy after placing a posterior | |interrupted [...] | | | |MOOKIE / SHARIF | |[id number] / [id number] / [id number] / [id number] | | | | | + + documented in this encounter Visit Diagnoses Not on filedocumented in this encounter"
--- OUTSIDE RECORDS SUMMARY | ~2019-10-16 | XMS | Clinical Summary ---
Demographics + + + | Address | [address] | | | [place] [address] | + + + | Home Phone [...] Providers + +------+ + | Care Brand Strategy Manager Name | Role | Phone | + +------+ + | Sulaiman Carrera MD | PCP | | + +------+ + Source Comments MARK is fully live on both [facility] Ambulatory and [facility] InPatient.[facility] Allergies + + + + + [...] + + + + + + | Okivciu-Qqqkpqtxbz-N | | | 08/29/19 | Balance problems [...] in | | | | | | [facility]) | | | | | | [...] | imbalances, sleep apnea, neck pain, medication [id number] | + + + + + | [...] | B | | sent | | [place], [place] | | | | | | | | [address] | | + +--------+ +--------+ + +--------+ | FLOW FLOOR ATTENDANT MEDICAID | FLOW FLOOR ATTENDANT | xxxxxxxx | | | | Medica [...] | 1960 | [phone] | [place] [address] | | | bijan | | | 3 (Home) | | + +--------+ +--------+ + + | Belinda Meehan | Medica | Self | [birth year] | [address] | | | re | | 9 | [phone] | [place] [address] | | | Recurr | | | 3 (Home) | | | | ing | | | | | + +--------+ +--------+ + + Advance Directives + + + + + | Type | Date Recorded | Patient | Explanation | | | | Box Icer | | + + + + + | Advance | 11/19/2004 12:00 | | ADVANCE DIRECTIVE | | Directives and | AM | | | | Living Will | | | | + + + + + | Power of | | | | | Thread Laster | | | | + + + [...]
--- OUTSIDE RECORDS SUMMARY | ~2019-10-16 | XMS | Encounter Summary ---
Demographics + + + | Address | [address] | | | [place] [address] | + + + | Home Phone [...] Providers + +------+ + | Care Program Project Analyst Name | Role | Phone | [...] | | | | [id number] Physician's | [place], [place] | | | | | [address] | [address] | | | | | [place], [place] | [phone] | | | | | [address] | | | | | | [phone] | | | +--------+ + + + [...] + + + | [facility] | [address] | [place] [address] | | | LABORATORY | | | [...] DEPARTMENT OF | [address] | [place] [address] | | | PATHOLOGY | [address] | | | + + + + + | [facility] | [address] | [place] [address] | | | PATHOLOGY | [address] | | | + + + + + documented in this encounter Visit Diagnoses Not on filedocumented in this encounter"
--- OUTSIDE RECORDS SUMMARY | ~2019-10-16 | XMS | Encounter Summary ---
Demographics + + + | Address | [address] | | | [place] [address] | + + + | Home Phone [...] Team Providers + +------+ + | Care What Job Titles Mean Name | Role | Phone | + [...] Rd | | | | | | [place], [place] | | | | | | [address] | | | +--------+ + + + [...] as of this encounter Progress Notes Interface, Chip Tester In - 12/06/2006 2:32 AM PDT [id number] GEOVANNI Barnes [id number] Clinic Date: 10/29/2006 Clinic: Endocrinology Subjective: Belinda [...] been working with the Pain Clinic at [facility] to optimize her pain management. Fortunately, [...] patch 25 mcg for 72 hours. 2. [place]/acetaminophen 10 mg/325 mg, 1 every 6 hours [...] months. Beto Meeks M.D. PD / [id number] / [id number] / [id number] / [id number] cc: Pedrito Gutierrez M.D. [address] [address] Chris Padgett M.D. Electronically signed by Beto Meeks 12-05-2006 05:17:05 AM documented in this encounter Plan of Treatment Not on filedocumented as of this encounter Visit Diagnoses Not on filedocumented in this encounter"
--- OUTSIDE RECORDS SUMMARY | ~2019-10-16 | XMS | Encounter Summary ---
Demographics + + + | Address | [address] | | | [place] [address] | + + + | Home Phone [...] Providers + +------+ + | Care Life Sciences Instructor Name | Role | Phone [...] | 05/29/ | Office | [facility] | Delfina Molina, | Chronic Abdominal | | 2005 | Visit | Pain Center at | ANP | Pain; Cervical Pain; | | | | [facility] | | Joint pain 719.40; | | | | [address] | | Depression | | | | Mailcode: CH15P | | | | | | [facility] | | | | | | and Healing, | | | | | | Building | | | | | | Floor [place], [place] | | | | | | [address] | | | | | | [phone] | | | +--------+---------+ + + + [...] Physical Therapy evaluation here at the [facility] in [place]. 3. Patient will be referred for a Psychology evaluation here at the [facility]. 4. Following the completion of [...] Belinda Meehan is a 46 y.o. female [id number] Chief Complaint: Patient presents with: Pain - [...] as PAIN MEDICINES: Opioids: Hydrocodone (Vicodin, Lortab, [place]): Why stopped?: don't remember. Came off due [...] Physical Therapy evaluation here at the [facility]. 3. Patient will be referred for a Psychology evaluation here at the [facility] er. 4. Following the completion [...] No further recommendations at this point. Dr. rBenda Noriega.; I want to thank you for referring [facility] [place] [facility] evaluation. I trust that you will find the recomm endations satisfactory and that you will be able to implement these in the care of your mehreen ent. Should you have any concerns or questions, please contact me, I would be happy to add ress those with you. DELFINA MOLINA [facility] [place] Mail code CH 4P [place] [facility] [address] [place] [address] metimothy Tasha - 05/29/2006 1:51 PM [...] drinking? no -Do you ever drink an eye-medical records coordinator in the morning to relieve the shakes? [...] stressful life experiences recently? yes If yes, explain:taping foreman brigida pain GOALS AND EXPECTATIONS 23. What do you expect from our pain program? Help in coping with the pain 24. What types of treatment do you expect from your visits to the [facility] ? Stress Management documented [...]
--- OUTSIDE RECORDS SUMMARY | ~2019-10-16 | XMS | Encounter Summary ---
Demographics + + + | Address | [address] | | | [place] [address] | + + + | Home Phone [...] Providers + +------+ + | Care Manager Lighting Name | Role | Phone | + [...] + | 07/19/ | Refill | [facility] | Alanis, | Medication Refill | | 2019 | | MEDICINE [address] | MD Petrona | | | | | [facility] | [address] [place] [address] | | | | | [place] [address] | [place] [address] | | | | | [phone] | [phone] | | | | | | | [...] | | | | | [place] [address] | | | | | | [phone] | | | | | | | | +--------+ + + + + | 12/20/ | Office | Audiology | DarioElisabet ramires MS | | | 2019 | Visit | | [facility] [address] | | | | [address] [place] | | | | | | [place], [place] [address] | | | | | | [phone] | | | | | | | | +--------+ + + + + | 12/20/ | Office | Otolaryngology | Ulysses Genao MD | | | 2019 | Visit | | [address] | | | | | | [address] [place], | | | | | | [place] [address] | | | | | | [phone] | | | | | | | | +--------+ + + + + documented as of this encounter Visit Diagnoses Not on filedocumented in this encounter"
--- OUTSIDE RECORDS SUMMARY | ~2019-10-16 | XMS | Encounter Summary ---
Demographics + + + | Address | [address] | | | [place] [address] | + + + | Home Phone [...] Team Providers + +------+ + | Care Ehs Teacher Name | Role | Phone | [...] Naeem Clementina | | | | | [facility] | [place], [place] | | | | | and Healing, | [address] | | | | | [place] [address], the [facility] | [phone] | | | | | Floor [place], [place] | | | | | | [address] | | | | | | [phone] | | | +--------+ + + + [...]
--- OUTSIDE RECORDS SUMMARY | ~2019-10-16 | XMS | Encounter Summary ---
Demographics + + + | Address | [address] | | | [place] [address] | + + + | Home Phone [...] Providers + +------+ + | Care Steel Barrel Reamer Name | Role | Phone | + +------+ + PCP | Unavailable | + +------+ + Encounter Details +--------+ + + + + | Date | Type | Department | Care Team | Description | +--------+ + + + + | 12/21/ | Results | Rheumatology | Caitlin Rivera, | | | 2003 | Only | [place] [address] | FAA CERTIFIED POWERPLANT MECHANIC | | | | | Sharmila [place]illing | | | | | | Mailcode: OPC5 | | | | | | Outpatient Clinic | | | | | | Building [facility] | | | | | | [place] [address] | | | | | | [phone] | | | +--------+ + + + [...] Iron and TIBC, Serum Test performed by [facility] | | | [facility]. | | + + + + + + + + | Performing | Address | City/State/Zipcode | Phone Number | | Organization | | | | + + + + + | [facility] | [address] | [place] [address] | | | LABORATORY | | | [...] | + + + + + | [facility] | [address] | [place] [address] | | | LABORATORY | | | [...] | | | | | performed at [place] | | | | | | [facility] | | | | | | Laboratory | | | | + + + + + + + + | Specimen | + + | | + + + + + + + | Performing | Address | City/State/Zipcode | Phone Number | | Organization | | | | + + + + + | [facility] | [address] | [place] [address] | | | LABORATORY | | | | + + + + + documented in this encounter Visit Diagnoses Not on filedocumented in this encounter"
--- OUTSIDE RECORDS SUMMARY | ~2019-10-16 | XMS | Encounter Summary ---
Demographics + + + | Address | [address] | | | [place] [address] | + + + | Home Phone [...] Providers + +------+ + | Care Mica Miner Blasting Name | Role | Phone [...] | | | | [place], | [address] | | | | | | [place] | Phone: | | | | | | [address] | [phone] | | | | | | Phone: | Fax: | | | | | | [phone] | [phone] | | | | | | Fax: | | | | | | | [phone] | | +--------+ + + + + [...] + | 04/18/ | Office | [facility] | Alanis, | Poor memory (Primary | | 2019 | Visit | MEDICINE [address] [place] [address] | MD Petrona | Dx); [address] | | | | [address] [place] | [address] [facility] | deficiency; Fatty | | | | [place] [address] | [place] [address] | liver | | | | [phone] | [phone] | | | | | | | [...] nl. No depression or suicidal thinki ng. [place] Cognitive Assessment ([facility]) Office Visit from 04/18/2019 in [facility] Visuospatial / Executive 4 Naming [...] MD; Location: [facility] CURRENT MEDICATIONS Current [...] Allergen Reactions Ensure Diarrhea Food Diarrhea Lactose Awzfuxhzvq-Ohh-Yfyc-Codeine Other (See Comments) Balance problems Codeine Sulfate Nausea Only Food Allergy Formula Diarrhea Ensure Levofloxacin Hives, Itching and Rash Butalbital Ropinirole Amitriptyline Hcl Other (See Comments) Confused and questionable for seizures Bsfrxbjhvy-Zbtb-Bhynvoct Rash duplicate Ehxvageeby-Ysut-Hrogwuci Hives and Rash Cephalexin Hives Ciprofloxacin Hives [...] 1. Parts of this documentwere created using Patient[employer] speech recognition software. As a resu lt, [...] | | | | | [place] [address] | | | | | | [phone] | | | | | | | | +--------+ + + + + | 12/20/ | Office | Audiology | Elisabet Munson MS | | | 2019 | Visit | | [facility] [address] | | | | [address] [place] | | | | | | [place] [address] | | | | | | [phone] | | | | | | | | +--------+ + + + + | 12/20/ | Office | Otolaryngology | Ulysses Genao MD | | | 2019 | Visit | | [address] | | | | | | [address] [place], | | | | | | [place] [address] | | | | | | [phone] | | | | | | | [...] mL/min/1.73m2 | Yudy EVANS | | | BERMUDIAN | RATE,ESTIMATED | | MEDICAL | | | | mL/min/1.47s7Owsz than | | CENTER - | | [...] [address] | [place] | [phone] | | [facility] | | [address] | | | - LABORATORY | | [...] + | [address] | [address] | [place], [place] | [phone] | | [facility] | | [address] | | | - LABORATORY | | | | + + + + + Vitamin B-12 (04/18/2019 11:29 AM PST) + + + + + + | Component | Value | Ref Range | Performed | Pathologist | | | | | At | Signature | + + + + + + | VITAMIN | >[id number] (H)Comment: | 156 - 672 pg/mL | [...] [address] | [place] | [phone] | | [facility] | | [address] | | | - LABORATORY | | [...]
--- OUTSIDE RECORDS SUMMARY | ~2019-10-16 | XMS | Encounter Summary ---
Demographics + + + | Address | [address] | | | [place] [address] | + + + | Home Phone [...] Team Providers + +------+ + | Care Bagel Maker Name | Role | Phone | [...] + + | 05/05/ | Telephone | [facility] | Alanis, | Incontinence | | 2018 | | MEDICINE [address] [place] [address] | MD Petrona | Supplies | | | | [facility] | [address] [place] [address] | | | | | [place] [address] | [place] [address] | | | | | [phone] | [phone] | | | | | | | [...] | | [facility] [address] | | | | | | [place] [address] | | | | | | [phone] | | | | | | | | +--------+ + + + + | 12/20/ | Office | Audiology | Elisabet Munson MS | | | 2019 | Visit | | [facility] [address] | | | | [address] [place] | | | | | | [place] [address] | | | | | | [phone] | | | | | | | | +--------+ + + + + | 12/20/ | Office | Otolaryngology | Ulysses Genao MD | | | 2019 | Visit | | [address] | | | | | | [address] [place], | | | | | | [place] [address] | | | | | | [phone] | | | | | | | [...]
--- OUTSIDE RECORDS SUMMARY | ~2019-10-16 | XMS | Encounter Summary ---
Demographics + + + | Address | [address] | | | [place] [address] | + + + | Home Phone [...] Providers + +------+ + | Care Counter Molder Name | Role | Phone | [...] [id number] | | | | | | [place], [place] | | | | | | [address] | | | | | | [phone] | | | +--------+ + + + [...]
--- OUTSIDE RECORDS SUMMARY | ~2019-10-16 | XMS | Encounter Summary ---
Demographics + + + | Address | [address] | | | [place] [address] | + + + | Home Phone [...] Providers + +------+ + | Care Book Sewer Name | Role | Phone | [...] | | | | Clinical Nutrition | [place], [place] | | | | | [address] | [address] | | | | | Loop Mailcode: OPC5 | [phone] | | | | | Outpatient Clinic | | | | | | [place], | | | | | | [place] [address] | | | | | | [phone] | | | +--------+ + + + [...]
--- OUTSIDE RECORDS SUMMARY | ~2019-10-16 | XMS | Encounter Summary ---
Demographics + + + | Address | [address] | | | [place] [address] | + + + | Home Phone [...] Providers + +------+ + | Care Specialty Finishing Utility Person Name | Role | Phone | [...] + + | 01/17/ | Office | [facility] | Alanis, | Surgical wound | | 2019 | Visit | [address] | MD Petrona | infection (Primary | | | | [address] | [address] [place] [address] | Dx) | | | | [place] [address] | [place] [address] | | | | | [phone] | [phone] | | | | | | | [...] - [place]) Depression Diarrhea Dumping syndrome Fall at home Fatigue fracture of vertebra Fibromyalgia Full dentures GERD (gastroesophageal reflux disease) Glaucoma Hyperparathyroidism ([facility]) Hypothyroidism IBS (irritable bowel syndrome) Idiopathic scoliosis Leg edema Low back pain Lumbar postlaminectomy syndrome Lumbar radiculopathy primarily right 01/04/2015 Meniere syndrome Migraine with aura Migraines Muscle cramping Muscle spasm Myalgia Nausea Nonalcoholic hepatosteatosis Obesity Opioid dependence ([facility]) Orthostatic hypotension OLIVER (obstructive sleep apnea) Osteoarthritis, generalized Osteopenia Osteoporosis Palpitations Peripheral neuropathy Rheumatoid arthritis ([facility] [...] Allergen Reactions Ensure Diarrhea Food Diarrhea Lactose Bifhcpqhto-Lqv-Itfd-Codeine Other (See Comments) Balance problems Codeine Sulfate Nausea Only Food Allergy Formula Diarrhea Ensure Levofloxacin Hives, Itching and Rash Butalbital Ropinirole Amitriptyline Hcl Other (See Comments) Confused and questionable for seizures Tdeubyobsw-Zwvx-Keczsfbr Hives and Rash Cephalexin Hives Ciprofloxacin Hives [...] Note: Parts of this documentwere created using [employer] speech recognition software. As a r esult, [...] | | | | | [place] [address] | | | | | | [phone] | | | | | | | | +--------+ + + + + | 12/20/ | Office | Audiology | Elisabet Munson MS | | | 2019 | Visit | | [facility] [address] | | | | | | [address] [place] | | | | | | [place] [address] | | | | | | [phone] | | | | | | | | +--------+ + + + + | 12/20/ | Office | Otolaryngology | Ulysses Genao MD | | | 2019 | Visit | | [address] | | | | | | [address] [place], | | | | | | [place] [address] | | | | | | [phone] | | | | | | | | +--------+ + + + + documented as of this encounter Visit Diagnoses + + | Diagnosis | + + | Surgical wound infection - Primary Other postoperative infection | + + documented in this encounter
--- OUTSIDE RECORDS SUMMARY | ~2019-10-16 | XMS | Encounter Summary ---
Demographics + + + | Address | [address] | | | [place] [address] | + + + | Home Phone [...] Team Providers + +------+ + | Care Absence Management Consultant Name | Role | Phone [...] + + | 03/01/ | Telephone | [facility] | Alanis, | Other | | 2018 | | MEDICINE [address] [place] [address] | MD Petrona | | | | | [facility] | [address] [place] [address] | | | | | [place] [address] | [place] [address] | | | | | [phone] | [phone] | | | | | | | [...] | | | | | [place] [address] | | | | | | [phone] | | | | | | | | +--------+ + + + + | 12/20/ | Office | Audiology | Elisabet Munson MS | | 2019 | Visit | | [facility] [address] | | | | | | [address] [place] | | | | | | [place] [address] | | | | | | [phone] | | | | | | | | +--------+ + + + + | 12/20/ | Office | Otolaryngology | Ulysses Genao MD | | | 2020 | Visit | | [address] [facility] | | | | | | [address] [place], | | | | | | [place] [address] | | | | | | [phone] | | | | | | | | +--------+ + + + + documented as of this encounter Visit Diagnoses Not on filedocumented in this encounter"
--- OUTSIDE RECORDS SUMMARY | ~2019-10-16 | XMS | Encounter Summary ---
Demographics + + + | Address | [address] | | | [place] [address] | + + + | Home Phone [...] Providers + +------+ + | Care Facility Service Associate Name | Role | Phone [...] findings, | | 2007 | | [place] [address] | [address] | teaching, guidance, | | | | Ave Mailcode: [facility] | [address] | and counseling (labs | | | | [facility] | [place], [place] | done on 07/01/07) | | | | and Healing, | [address] | | | | | [facility] | [phone] | | | | | [place], [place] | | | | | | [address] | | | | | | [phone] | | | +--------+ + + + [...]
--- OUTSIDE RECORDS SUMMARY | ~2019-10-16 | XMS | Encounter Summary ---
Demographics + + + | Address | [address] | | | [place] [address] | + + + | Home Phone [...] | | sciatica | [address] | [address] Phone: | | | | | | [place], | [phone] | | | | | | [place] | Fax: | | | | | | [address] | [phone] | | | | | | Phone: | | | | | | | [phone] | | | | | | | Fax: | | | | | | | [phone] | | +--------+ + + + + + Reason for Visit + + + | Reason | Comments | + + + | Medication Orders | | + + + Encounter Details +--------+ + + + + | Date | Type | Department | Care Team | Description | +--------+ + + + + | 07/15/ | Telephone | [facility] | Alanis, | Medication Orders | | 2018 | | MEDICINE [address] [place] [address] | MD Petrona | | | | | [facility] | [address] [place] [address] | | | | | [place] [address] | [place] [address] | | | | | [phone] | [phone] | | | | | | | [...] | | | | | [place] [address] | | | | | | [phone] | | | | | | | | +--------+ + + + + | 12/20/ | Office | Audiology | Elisabet Munson | | | 2019 | Visit | | [facility] [address] | | | | | [address] [place] | | | | | | [place] [address] | | | | | | [phone] | | | | | | | | +--------+ + + + + | 12/20/ | Office | Otolaryngology | Ulysses Genao MD | | | 2019 | Visit | | [address] | | | | | | [address] [place], | | | | | | [place] [address] | | | | | | [phone] | | | | | | | [...]
--- OUTSIDE RECORDS SUMMARY | ~2019-10-16 | XMS | Encounter Summary ---
Demographics + + + | Address | [address] | | | [place] [address] | + + + | Home Phone [...] | | | | Mailcode: L223A | [place], [place] | | | | | [facility] | [address] | | | | | [address] [place], [place] | [phone] | | | | | [address] | | | | | | [phone] | | | +--------+ + + + [...]
--- OUTSIDE RECORDS SUMMARY | ~2019-10-16 | XMS | Encounter Summary ---
Demographics + + + | Address | [address] | | | [place] [address] | + + + | Home Phone [...] Providers + +------+ + | Care Drug Worker Name | Role | Phone | [...] as of this encounter Progress Notes Interface, Pci Security Consultant In - 07/03/2006 2:33 AM PST [id number] GEOVANNI SKELTON J [id number] Clinic Date: 06/24/2006 Clinic: Rheumatology Subjective: Belinda Meehan is a 46-year-old woman here for followup of fibromyalgia. She comes from [place] and is now also working with the [...] will have a meeting soon with [facility] to start doing my films here, [...] 2 months. Caitlin Rivera M.S., F.N.P. / [id number] / [id number] / [id number] / [id number] cc: [facility] Electronically signed by Caitlin Rivera 07-02-2006 11:27:56 AM documented in this encounter Plan of Treatment Not on filedocumented as of this encounter Visit Diagnoses Not on filedocumented in this encounter"
--- OUTSIDE RECORDS SUMMARY | ~2019-10-16 | XMS | Encounter Summary ---
Demographics + + + | Address | [address] | | | [place] [address] | + + + | Home Phone [...] Providers + +------+ + | Care Media Operator Name | Role | Phone | [...] as of this encounter Progress Notes Interface, Radiology Assistant In - 08/19/2005 2:05 AM PST [id number] GEOVANNI Barnes Clinic Date: 07/24/2005 Clinic: Hematology/Oncology [...] or malignancies. 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 She still smokes 1/2 [...] are appreciated. No petechiae. Laboratory: Labs from [place]: Homocysteine 8.5 and SANIA negative. CBC: White [...] laboratory studies that have been obtained from [place], it does not appear that she has [...] E supplementation. Karen Gramza, Joanna Sellers M.D. shaping machine tender / HS [id number] / [id number] / [id number] / [id number] cc: Pedrito Gutierrez M.D. [facility] [address] [place] [address] FAX: [phone] Electronically signed by Lukasz Sellers 08-18-2005 01:27:53 PM documented i n this encounter Plan of Treatment Not on filedocumented as of this encounter Visit Diagnoses Not on filedocumented in this encounter"
--- OUTSIDE RECORDS SUMMARY | ~2019-10-16 | XMS | Encounter Summary ---
Demographics + + + | Address | [address] | | | [place] [address] | + + + | Home Phone [...] Team Providers + +------+ + | Care Tennis Camp Instructor Name | Role | Phone | [...] | | [facility] | [place], [place] | | | | | [address] | [address] | | | | | [address] | [phone] | | | | | Physician's | | | | | | Pavilion, 1st floor | | | | | | [place], [place] | | | | | | [address] | | | | | | [phone] | | | +--------+ + + + [...]
--- OUTSIDE RECORDS SUMMARY | ~2019-10-16 | XMS | Encounter Summary ---
Demographics + + + | Address | [address] | | | [place] [address] | + + + | Home Phone [...] Organization | [facility] | | [...] Team Providers + +------+ + | Care Arborist Representative Name | Role | Phone | [...] + | 09/06/ | Refill | [facility] | Alanis, | Medication Refill | | 2019 | | MEDICINE [address] | MD Petrona | | | | | [facility] | [address] [place] [address] | | | | | [place] [address] | [place] [address] | | | | | [phone] | [phone] | | | | | | | [...] | | | | | [place] [address] | | | | | | [phone] | | | | | | | | +--------+ + + + + | 12/20/ | Office | Audiology | DarioElisabet ramires MS | | | 2019 | Visit | | [facility] [address] | | | | | [address] [place] | | | | | | [place], [place] [address] | | | | | | [phone] | | | | | | | | +--------+ + + + + | 12/20/ | Office | Otolaryngology | Ulysses Genao MD | | | 2019 | Visit | | [address] | | | | | | [address] [place], | | | | | | [place] [address] | | | | | | [phone] | | | | | | | | +--------+ + + + + documented as of this encounter Visit Diagnoses Not on filedocumented in this encounter"
--- OUTSIDE RECORDS SUMMARY | ~2019-10-16 | XMS | Encounter Summary ---
Demographics + + + | Address | [address] | | | [place] [address] | + + + | Home Phone [...] Providers + +------+ + | Care Car Shifter Name | Role | Phone | + [...] | | | Metabolism | bypass | [address] | [address] | | | | | Hypovitamino | [address], | Ave | | | | | sis D B12 | [address] | [place], [place] | | | | | nutritional | [place], [place] | [address] | | | | | deficiency | [address] | Phone: | | | | | Other | Phone: | [phone] | | | | | protein-jose manuel | [phone] | Fax: | | | | | nick | Fax: | [phone] | | | | | malnutrition | [phone] | | | | | | Weight | | | | | | | gain | | | | | | | Procedures | | | | | | | CONSULT TO | | | | | | | ENDO | | | | | | | [address] | | | | | | | [address] | | | +--------+--------+ + + + [...] | | | [facility] | [place], [place] | Metabolic syndrome X | | | | [address] | [address] | 250.80; Essential | | | | [address] | [phone] | hypertension 401.9; | | | | [facility] | | IGT (impaired | | | | Physician's | | glucose tolerance) | | | | Pavilion [place], | | | | | | [place] [address] | | | | | | [phone] | | | +--------+---------+ + + + [...] month in the pain center her at [facility], so she is hoping to [...] Hives Mainly in the legs Clindamycin Codeine Lmvcxgy-Uexvgjocwy-Ptq-Caff Balance problems Fioricet W/Codeine (Zxsxvvqsnq-Iuzbgpcpas-Cbo-Cod) Keflex (Cephalexin) Morphine IM ( only in [...] U/L 41 ANION GAP 8 VITAMIN B12, [id number] pg/ml >2000 (H) HEMOGLOBIN A1C <=5.6 % [...] SERUM 15.0-85.0 pg/ml 222.9 (H) VITAMIN B12, [id number] pg/ml > 2000 HEMOGLOBIN A1C <=5.6 % [...]
--- OUTSIDE RECORDS SUMMARY | ~2019-10-16 | XMS | Encounter Summary ---
Demographics + + + | Address | [address] | | | [place] [address] | + + + | Home Phone [...] Providers + +------+ + | Care B2B Sales Representative Name | Role | Phone [...] + | 03/30/ | Telephone | [facility] | Alanis, | Appointment | | 2019 | | MEDICINE [address] [place] [address] | MD [place]ron[place] | | | | | [facility] | [address] [place] [address] | | | | | [place] [address] | [place] [address] | | | | | [phone] | [phone] | | | | | | | [...] | | | | | [place] [address] | | | | | | [phone] | | | | | | | | +--------+ + + + + | 12/20/ | Office | Audiology | Elisabet Munson MS | | 2019 | Visit | | [address] [address] | | | | | | [address] [place] | | | | | | [place] [address] | | | | | | [phone] | | | | | | | | +--------+ + + + + | 12/20/ | Office | Otolaryngology | Ulysses Genao MD | | | 2020 | Visit | | [address] | | | | | | [address] [place], | | | | | | [place] [address] | | | | | | [phone] | | | | | | | | +--------+ + + + + documented as of this encounter Visit Diagnoses Not on filedocumented in this encounter"
--- OUTSIDE RECORDS SUMMARY | ~2019-10-16 | XMS | Encounter Summary ---
Demographics + + + | Address | [address] | | | [place] [address] | + + + | Home Phone [...] Providers + +------+ + | Care Cardiovascular Rn Name | Role | Phone | [...] | | Osteoporosis | i, | [address] | | | | | , | [place] | [place], | | | | | unspecified | , MD [address] | [place] [address] | | | | | osteoporosis | [address] | Phone: | | | | | type, | [place], | [phone] | | | | | unspecified | [place] | Fax: | | | | | pathological | [address] | [phone] | | | | | fracture | Phone: | | | | | | presence | [phone] | | | | | | Procedures | Fax: | | | | | | [place] | [phone] | | | | | | ZOLEDRONIC | | | | | | | ACID 1MG | | | +--------+ + + + + + Encounter Details +--------+ + + + + | Date | Type | Department | Care Team | Description | +--------+ + + + + | 07/20/ | Orders Only | [facility] | Alanis, | Osteoporosis, | | 2018 | | MEDICINE [address] [place] [address] | MD Petrona | unspecified | | | | [facility] | [address] [place] [address] | osteoporosis type, | | | | [place] [address] | [place] [address] | unspecified | | | | [phone] | [phone] | pathological | | | | | [...] | | | | | [place] [address] | | | | | | [phone] | | | | | | | | +--------+ + + + + | 12/20/ | Office | Audiology | Elisabet Munson MS | | | 2019 | Visit | | [facility] [address] | | | | | [address] | | | | | | [place] [address] | | | | | | [phone] | | | | | | | | +--------+ + + + + | 12/20/ | Office | Otolaryngology | Ulysses Genao MD | | | 2019 | Visit | | [address] | | | | | | [address] [place], | | | | | | [place] [address] | | | | | | [phone] | | | | | | | [...]
--- OUTSIDE RECORDS SUMMARY | ~2019-10-16 | XMS | Encounter Summary ---
Demographics + + + | Address | [address] | | | [place] [address] [...] Providers + +------+ + | Care Log Data Technician Name | Role | Phone | [...] | | MD [address] | [place] | | | | | | [address] | [address] | | | | | | [place], | Phone: | | | | | | [place] | [phone] | | | | | | [address] | | | | | | | Phone: | | | | | | | [phone] | | | | | | | Fax: | | | | | | | [phone] | | +--------+ + + + + [...] [place] | Dx) | | | | [place] [address] | [place] [address] | | | | | [phone] | [phone] | | | | | | | [...] | | | | | [place] [address] | | | | | | [phone] | | | | | | | | +--------+ + + + + | 12/20/ | Office | Audiology | Elisabet Munson MS | | | 2019 | Visit | | [facility] | | | | | | [address] [place] | | | | | | [place] [address] | | | | | | [phone] | | | | | | | | +--------+ + + + + | 12/20/ | Office | Otolaryngology | Ulysses Genao MD | | | 2020 | Visit | | [address] [facility] | | | | | | [address] [place], | | | | | | [place] [address] | | | | | | [phone] | | | | | | | | +--------+ + + + + + + +--------+ + + | Name | Type | Priori | Associated Diagnoses | Order Schedule | | | | ty | | | + + +--------+ + + | [place] | Outpatient | Routin | Multiple food [...]
--- OUTSIDE RECORDS SUMMARY | ~2019-10-16 | XMS | Encounter Summary ---
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 Diagnosis: [place] I: 1. (296.32) Major depressive disorder, recurrent, moderate. 2. (309.24) Adjustment disorder with anxiety. 3. 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 [place] II: Deferred [place] III: abdominal pain, migraine headache, low back pain. [place] IV: low finances [place] V: GAF 55-60 Plan: Return with next medical follow-up appointment. Check mood, knee surgery, relaxation, acti vity, distraction. Continue cognitive/behavioral therapy. Total time spent with patient was approximately 45 minutes. LUKASZ CHARLES [facility] [address] [facility], 4th [place] [address] documented in this encount er Plan of [...]
--- OUTSIDE RECORDS SUMMARY | ~2019-10-16 | XMS | Encounter Summary ---
Demographics + + + | Address | [address] | | | [place] [address] | + + + | Home Phone [...] Team Providers + +------+ + | Care Ticket Printer Name | Role | Phone | [...]
--- OUTSIDE RECORDS SUMMARY | ~2019-10-16 | XMS | Encounter Summary ---
Demographics + + + | Address | [address] | | | [place] [address] | + + + | Home Phone [...] Providers + +------+ + | Care Physician Primary Care Sports Medicine Name | Role | Phone | + [...] | | | | behavior of | [facility] | Orthopaedics | | | | | bone and | & Fractur | [address] | | | | | articular | [address] | [address] | | | | | cartilage | [address] | Rd | | | | | Procedures | [place], | [place], [place] | | | | | REQUEST TO | [place] [address] | [address] | | | | | SURGERY | Phone: | | | | | | FINISHER MACHINE | [phone] | | | | | | [place] BONE | Fax: | | | | | | BIOPSY,OPEN | [phone] | | | | | | DEEP [place] | | | | | | | EXCIS/CURET | | | | | | | BENIGN TUMR | | | | | | | CLAV/SCAPULA | | | | | | | MN EXCIS | | | | | | | BENIGN TUMR | | | | | | | CLAV/SCAP,AU | | | | | | | TOGRFT [place] | | | | | | [...] | | | | | | [facility] | Orthopaedics | | | | | | & Fractur | [address] | | | | | | [address] | [address] | | | | | | Nirav Kovacs | [place] | | | | | | [place], | [place], [place] | | | | | | [place] [address] | [address] | | | | | | Phone: | | | | | | | [phone] | | | | | | | Fax: | | | | | | | [phone] | | +--------+--------+ + + + + [...] | (Primary Dx) | | | | [place], [place] | | | | | | [address] | | | | | | [phone] | | | +--------+---------+ + + + [...] 08/2007 right knee Hx lumbar fusion 05/2008 L5-E1wkizft with bone spur removals Hx appendectomy Hx cholecystectomy Hx section Hx hysterectomy Gastric bypass Mayra Padgett wt 278 01/18 Paniculectomy Allergies: Allergies Allergen Reactions Keflex (Cephalexin) Sulfa (Sulfonamides) Codeine Penicillins Clindamycin Cipro (Ciprofloxacin) Tramadol Morphine IM ( only in [facility]) made gut pain worse 08/27/06: Trial of oral MSIR caused leg swelling Clarithromycin Hives Mainly in the legs Pnvrhiq-rfrbzqcuso-bcb-caff Balance problems Amitriptyline Grand mal seizures Medications: [...] signs are noted as recorded by the Fraud Examiner. General: Alert, awake, and oriented x3. No [...] No: | | | | | | [id number] Name: | | | | | | BELINDA MEEHAN | | | | | | Birthday: 1960 | | | | | | Sex: F | | | | | | Alias:Patient Location: | | | | | | [id number]: Outpatient | | | | | | ActiveOrdering | | | | | | Physician: JOSÉ MIGUEL | | | | | | MARYSOL MORENO [place] | | | | | | COMPLETE completed on | | | | | | 01/01/2009 11:55 | | | | | | AMAccession # | | | | | | [id number] | | | | | | [place]AP[place]A [...]
--- OUTSIDE RECORDS SUMMARY | ~2019-10-16 | XMS | Encounter Summary ---
Demographics + + + | Address | [address] | | | [place] [address] | + + + | Home Phone [...] [place], | | | 2005 | | [place] [address] | [facility] [address] | | | | | [address] | [address] | | | | | Mailcode: [id number] | [place], [place] | | | | | [facility] | [address] | | | | | [place], [place] | [phone] | | | | | [address] | | | | | | [phone] | | | +--------+ + + + [...]
--- OUTSIDE RECORDS SUMMARY | ~2019-10-16 | XMS | Encounter Summary ---
Demographics + + + | Address | [address] | | | [place] [address] | + + + | Home Phone [...] Providers + +------+ + | Care Supervisor Liquefaction Name | Role | Phone | [...] as of this encounter Progress Notes Interface, Foster Care Worker In - 01/12/2006 1:16 AM PDTCLINIC DATE: 05/24/2002 NEUROMUSCULAR CLINIC PRIMARE CARE PROVIDER: Pedrito Gutierrez M.D., [place], [place]. REFERRING PROVIDER : Issac Meeks M.D., [facility] Endocrinology. REASON FOR CONSULTATION: Dr. Meeks [...] has some mild associated weakness in her meat pickler. She was told she had carpal tunnel [...] use drugs. 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 She is applying for disability compensation. She lives in [facility] and is currently undergoing a divorce. [...] position sense throughout. Coordination: Fine finger movements, bedoir-fk-gmtp, rapid alternating movements, and nsjz-ed-uhvu maneuvers are intact though xdmvht-hq-zjng is limited by poor depth perception due [...] Pete M.D. Neurology/Neuromuscular Fellow [employer] / HS [id number] / [id number] / [id number] / cc: Issac Meeks M.D. [facility] Endocrinology Pedrito Gutierrez M.D. [address] [place] [address]Mdbjbwzpyfhyjx signed by Interface, Foster Care Worker In at 01/12/2006 1:1 6 AM PDTdocumented in this encounter Plan of Treatment Not on filedocumented as of this encounter Visit Diagnoses Not on filedocumented in this encounter
--- OUTSIDE RECORDS SUMMARY | ~2019-10-16 | XMS | Encounter Summary ---
Demographics + + + | Address | [address] | | | [place] [address] | + + + | Home Phone [...] Providers + +------+ + | Care Senior Firmware Engineer Name | Role | Phone | [...] | | MD [address] | [place] [address] | | | | | | [address] | Phone: | | | | | | [place], | [phone] | | | | | | [place] | Fax: | | | | | | [address] | [phone] | | | | | | Phone: | | | | | | | [phone] | | | | | | | Fax: | | | | | | | [phone] | | +--------+ + + + + + Reason for Visit + + + | Reason | Comments | + + + | Medication Question | | + + + Encounter Details +--------+ + + + + | Date | Type | Department | Care Team | Description | +--------+ + + + + | 08/13/ | Telephone | [facility] | Alanis, | Medication Question | | 2018 | | MEDICINE [address] [place] [address] | MD Petrona | | | | | [facility] | [address] [place] [address] | | | | | [place] [address] | [place] [address] | | | | | [phone] | [phone] | | | | | | | [...] | | | | | [place] [address] | | | | | | [phone] | | | | | | | | +--------+ + + + + | 12/20/ | Office | Audiology | Elisabet Munson MS | | | 2019 | Visit | | [facility] [address] | | | | | [address] [place] | | | | | | [place] [address] | | | | | | [phone] | | | | | | | | +--------+ + + + + | 12/20/ | Office | Otolaryngology | Ulysses Genao MD | | | 2019 | Visit | | [address] | | | | | | [address] [place], | | | | | | [place] [address] | | | | | | [phone] | | | | | | | [...]
--- OUTSIDE RECORDS SUMMARY | ~2019-10-16 | XMS | Encounter Summary ---
Demographics + + + | Address | [address] | | | [place] [address] | + + + | Home Phone [...] Providers + +------+ + | Care Hand Laster Name | Role | Phone | + +------+ + | Crystal Gutierrez MD | PCP | | + +------+ + Encounter Details +--------+ + + + + | Date | Type | Department | Care Team | Description | +--------+ + + + + | 09/14/ | Procedure - | [facility] Division of | Endoscopy, Gi | EGD | | 2008 | | Gastroenterology/Hep | | (esophagogastroduode | | | Transcribed | atology [address] | | noscopy) | | | | [address] | | | | | | Mailcode: [id number] | | | | | | [place] | | | | | | [address] | | | | | | [place], [place] | | | | | | [address] | | | | | | [phone] | | | +--------+ + + + [...] + + + | PROCEDURES:PANENDOSCOPY (EGD) CPT: [id number]. PERSONNEL:THE | | | ATTENDING PHYSICIAN WAS [...] AM PDT | | PROCEDURES:PANENDOSCOPY (EGD) CPT: [id number]. | | PERSONNEL:THE ATTENDING PHYSICIAN WAS PRESENT [...]
--- OUTSIDE RECORDS SUMMARY | ~2019-10-16 | XMS | Encounter Summary ---
Demographics + + + | Address | [address] | | | [place] [address] | + + + | Home Phone [...] Providers + +------+ + | Care Field Clinical Engineer Name | Role | Phone | [...] + | 09/06/ | Refill | [facility] | Alanis, | Medication Refill | | 2019 | | MEDICINE [address] | MD Petrona | | | | | [facility] | [address] [place] [address] | | | | | [place] [address] | [place] [address] | | | | | [phone] | [phone] | | | | | | | [...] | | | | | [place] [address] | | | | | | [phone] | | | | | | | | +--------+ + + + + | 12/20/ | Office | Audiology | DarioElisabet ramires MS | | | 2019 | Visit | | [facility] [address] | | | | | [address] [place] | | | | | | [place], [place] [address] | | | | | | [phone] | | | | | | | | +--------+ + + + + | 12/20/ | Office | Otolaryngology | Ulysses Genao MD | | | 2019 | Visit | | [address] | | | | | | [address] [place], | | | | | | [place] [address] | | | | | | [phone] | | | | | | | | +--------+ + + + + documented as of this encounter Visit Diagnoses Not on filedocumented in this encounter"
--- OUTSIDE RECORDS SUMMARY | ~2019-10-16 | XMS | Encounter Summary ---
Demographics + + + | Address | [address] | | | [place] [address] | + + + | Home Phone [...] + +------+ + | Care Director Of Partner Marketing Name | Role | Phone | [...] + + | 06/28/ | Office | [facility] Comprehensive [...] Arthroplasty of the | | | | [place] [facility] | | Left Knee; Bilateral | | | | and Healing, | | Knee Pain; DJD | | | | Building | | (Degenerative Joint | | | | Floor [place], [place] | | Disease) of Knee; | | | | [address] | | Spondylosis with | | | | [phone] | | Myelopathy, Lumbar | | | [...] as working with Madeleine evans or in [facility]. Epidural steroid injections are awhile [...] be in bed so long. Son primary neonatal intensive care nurse. Current outpatient medications Medication Sig Dispense Refill [...] Time Resulting Agency 05/25/2007 4:06 PM [facility] DEPARTMENT OF RADIOLOGY Component Results MR CERVICAL [...] with any concerns or questions. DELFINA MOLINA [facility] Mail code CH 4P [facility] [address] [facility] [address] Ailyn Bello 06/28/19 08 8:38 [...]
--- OUTSIDE RECORDS SUMMARY | ~2019-10-16 | XMS | Encounter Summary ---
Demographics + + + | Address | [address] | | | [place] [address] | + + + | Home Phone [...] Providers + +------+ + | Care Rigging Supervisor Name | Role | Phone | [...] | | MD [address] | [place] [address] | | | | | | [address] | Phone: | | | | | | [place], | [phone] | | | | | | [place] | Fax: | | | | | | [address] | [phone] | | | | | | Phone: | | | | | | | [phone] | | | | | | | Fax: | | | | | | | [phone] | | +--------+ + + + + + Reason for Visit + + + | Reason | Comments | + + + | Medication Question | | + + + Encounter Details +--------+ + + + + | Date | Type | Department | Care Team | Description | +--------+ + + + + | 08/13/ | Telephone | [facility] | Alanis, | Medication Question | | 2018 | | MEDICINE [address] [place] [address] | MD Petrona | | | | | [facility] | [address] [place] [address] | | | | | [place] [address] | [place] [address] | | | | | [phone] | [phone] | | | | | | | [...] | | | | | [place] [address] | | | | | | [phone] | | | | | | | | +--------+ + + + + | 12/20/ | Office | Audiology | Elisabet Munson MS | | | 2019 | Visit | | [facility] [address] | | | [address] [place] | | | | | | [place] [address] | | | | | | [phone] | | | | | | | | +--------+ + + + + | 12/20/ | Office | Otolaryngology | Ulysses Genao MD | | | 2019 | Visit | | [address] | | | | | | [address] [place], | | | | | | [place] [address] | | | | | | [phone] | | | | | | | [...]
--- OUTSIDE RECORDS SUMMARY | ~2019-10-16 | XMS | Encounter Summary ---
Demographics + + + | Address | [address] | | | [place] [address] | + + + | Home Phone [...] Providers + +------+ + | Care Process Eng Name | Role | Phone | + [...] + + | 03/04/ | Telephone | [facility] | Alanis, | Fever | | 2018 | | MEDICINE [address] [place] [address] | MD Petrona | | | | | [facility] | [address] [place] [address] | | | | | [place] [address] | [place] [address] | | | | | [phone] | [phone] | | | | | | | [...] | | | | | [place] [address] | | | | | | [phone] | | | | | | | | +--------+ + + + + | 12/20/ | Office | Audiology | Elisabet Munson MS | | 2019 | Visit | | [facility] [address] | | | | | [address] [place] | | | | | | [place] [address] | | | | | | [phone] | | | | | | | | +--------+ + + + + | 12/20/ | Office | Otolaryngology | Ulysses Genao MD | | | 2020 | Visit | | [address] [facility] | | | | | | [address] [place], | | | | | | [place] [address] | | | | | | [phone] | | | | | | | | +--------+ + + + + documented as of this encounter Visit Diagnoses Not on filedocumented in this encounter"
--- OUTSIDE RECORDS SUMMARY | ~2019-10-16 | XMS | Encounter Summary ---
Demographics + + + | Address | [address] | | | [place] [address] [...] Providers + +------+ + | Care Straight Slicing Machine Operator Name | Role | Phone [...] + | 02/11/ | Telephone | [facility] | Alanis, | Arm Pain (Right Arm) | | 2017 | | MEDICINE [address] [place] [address] | MD Petrona | | | | | [facility] | [address] [place] [address] | | | | | [place] [address] | [place] [address] | | | | | [phone] | [phone] | | | | | | | [...] | | | | | [place] [address] | | | | | | [phone] | | | | | | | | +--------+ + + + + | 12/20/ | Office | Audiology | Jeimy CeasarMS rafa | | | 2019 | Visit | | [facility] [address] | | | [address] [place] | | | | | | [place], [place] [address] | | | | | | [phone] | | | | | | | | +--------+ + + + + | 12/20/ | Office | Otolaryngology | Ulysses Genao MD | | | 2019 | Visit | | [address] | | | | | | [address] [place], | | | | | | [place] [address] | | | | | | [phone] | | | | | | | | +--------+ + + + + documented as of this encounter Visit Diagnoses Not on filedocumented in this encounter"
--- OUTSIDE RECORDS SUMMARY | ~2019-10-16 | XMS | Encounter Summary ---
Demographics + + + | Address | [address] | | | [place] [address] | + + + | Home Phone [...] Providers + +------+ + | Care Hospital Nursing Assistant Name | Role | Phone | [...] 09/09/ | Office | [facility] | Lukasz Charles, | Major Depressive | | 2006 | Visit | [address] | PhD [address] | Disorder, Recurrent | | | | Mailcode: CH15P | [place], [place] | Episode, Moderate | | | | [facility] | [address] | (HCC); DJD | | | | and Healing, | [phone] | (Degenerative Joint | | | | Building | | Disease) of Left | | | | Floor [place], [place] | | Knee; Neck Pain; | | | | [address] | | Herniated Lumbar | | | | [phone] | | Intervertebral Disc | | | [...] is making an effort to improve. Diagnosis: Ethel I: 1. (296.32) Major depressive disorder, recurrent, moderate. 2. (309.24) Adjustment disorder with anxiety. 3. 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 Ethel II: Deferred Ethel III: abdominal pain, migraine headache, low back pain. Ethel IV: low finances Ethel V: GAF 50 Plan: Return in 2 weeks. Check preparation for niece's visit, [employer], pacing, relaxation, ac tivity, distraction. Check managing Pain... book. Continue cognitive/behavioral therapy. Total time spent with patient was approximately 45 minutes. LUKASZ CHARLES PHD [facility] [address] [facility] [address]th [place] [address] documented in this encount er Plan of [...]
--- OUTSIDE RECORDS SUMMARY | ~2019-10-16 | XMS | Encounter Summary ---
Demographics + + + | Address | [address] | | | [place] [address] | + + + | Home Phone [...] Providers + +------+ + | Care Manager Inpatient Name | Role | Phone | + [...] [address] | | | | | | [place], [place] | | | | | | [address] | | | | | | [phone] | | | +--------+ + + + [...] DEPARTMENT OF | [address] | [place] [address] | | | PATHOLOGY | [address] | | | + + + + + | [facility] DEPARTMENT | [address] | [place] [address] | | | PATHOLOGY | [address] | | | + + + + + PROTHROMBIN TIME (03/10/2006 2:42 PM PDT) + + + + + + | Component | Value | Ref Range | Performed | Pathologist | | | | | At | Signature | + + + + + + | INR | 1.01Comment: | 0.90 - 1.20 INR | [facility] | | | | PT INR Therapeutic [...] + + + + + | [facility] | [address] [place] [address] | [place] [address] | | | PATHOLOGY | [address] | | | + + + + + | [facility] | [address] [facility] | [place] [address] | | | PATHOLOGY | [address] [...] DEPARTMENT OF | [address] | [place] [address] | | | PATHOLOGY | [address] | | | + + + + + | [facility] DEPARTMENT OF | [address] | [place] [address] | | | PATHOLOGY | [address] [...] | [facility] DEPARTMENT | [address] [facility] | [place] [address] | | | PATHOLOGY | [address] | | | + + + + + | [facility] | [address] [facility] | [place] [address] | | | PATHOLOGY | [address] [...] + + + | [facility] | [address] | [place] [address] | | | LABORATORY | | | [...] | | | | | performed at [facility] | | | [facility] [...] + + + | [facility] | [address] | [place] [address] | | | LABORATORY | | | | + + + + + documented in this encounter Visit Diagnoses + + | Diagnosis | + + | Chronic abdominal pain Abdominal pain, unspecified site | + + | Iron deficiency Other disorders of iron metabolism | + + documented in this encounter"
--- OUTSIDE RECORDS SUMMARY | ~2019-10-16 | XMS | Encounter Summary ---
Demographics + + + | Address | [address] | | | [place] [address] | + + + | Home Phone [...] | | | | [address] | [place] [address] | | | | | | [place], | Phone: | | | | | | [place] | [phone] | | | | | | [address] | Fax: | | | | | | Phone: | [phone] | | | | | | [phone] | | | | | | | Fax: | | | | | | | [phone] | | +--------+ + + + + + Reason for Visit + + + | Reason | Comments | + + + | Vertigo (Recurrent) | | + + + Encounter Details +--------+ + + + + | Date | Type | Department | Care Team | Description | +--------+ + + + + | 11/18/ | Telephone | [facility] | Alanis, | Vertigo (Recurrent) | | 2017 | | MEDICINE [address] [place] [address] | MD Petrona | | | | | [facility] | [address] [place] [address] | | | | | [place] [address] | [place] [address] | | | | | [phone] | [phone] | | | | | | | [...] | | | | | [place] [address] | | | | | | [phone] | | | | | | | | +--------+ + + + + | 12/20/ | Office | Audiology | Elisabet Munson MS | | | 2019 | Visit | | [facility] [address] [place] | | | | | | [place] [address] | | | | | | [phone] | | | | | | | | +--------+ + + + + | 12/20/ | Office | Otolaryngology | Ulysses Genao MD | | | 2019 | Visit | | [address] | | | | | | [address] [place], | | | | | | [place] [address] | | | | | | [phone] | | | | | | | [...]
--- OUTSIDE RECORDS SUMMARY | ~2019-10-16 | XMS | Encounter Summary ---
Demographics + + + | Address | [address] | | | [place] [address] | + + + | Home Phone [...] Providers + +------+ + | Care Body Engineer Name | Role | Phone | [...] | | | | | laterality | [address] | [address] | | | | | Dysfunction | Phone: | Phone: | | | | | of left | [phone] | [phone] | | | | | eustachian | Fax: | Fax: | | | | | tube | [phone] | [phone] | +--------+ + + + + + [...] [place], | unspecified | | | | [place], [place] | [place] [address] | laterality (Primary | | | | [address] | [phone] | Dx); Dysfunction of | | | | [phone] | | left eustachian tube | +--------+ [...] | | | | | [place] [address] | | | | | | [phone] | | | | | | | | +--------+ + + + + | 12/20/ | Office | Audiology | Elisabet Munson MS | | | 2019 | Visit | | [facility] | | | | | | [address] | | | | | | [place] [address] | | | | | | [phone] | | | | | | | | +--------+ + + + + | 12/20/ | Office | Otolaryngology | Ulysses Genao MD | | | 2020 | Visit | | [address] | | | | | | [address] [place], | | | | | | [place] [address] | | | | | | [phone] | | | | | | | [...]
--- OUTSIDE RECORDS SUMMARY | ~2019-10-16 | XMS | Encounter Summary ---
Demographics + + + | Address | [address] | | | [place] [address] | + + + | Home Phone [...] Providers + +------+ + | Care Sand Temperer Name | Role | Phone | [...] [id number] | | | | | | [place], [place] | | | | | | [address] | | | | | | [phone] | | | +--------+--------+ + + + [...]
--- OUTSIDE RECORDS SUMMARY | ~2019-10-16 | XMS | Encounter Summary ---
Demographics + + + | Address | [address] | | | [place] [address] | + + + | Home Phone [...] | | Order | [facility] | [place], [place] | | | | | Sharmila, [facility] floor | [address] | | | | | [place], [place] | [phone] | | | | | [address] | | | | | | [phone] | | | +--------+ + + + [...]
--- OUTSIDE RECORDS SUMMARY | ~2019-10-16 | XMS | Encounter Summary ---
Demographics + + + | Address | [address] | | | [place] [address] | + + + | Home Phone [...] Providers + +------+ + | Care Tray Delivery Aide Name | Role | Phone | [...] + | 08/23/ | Refill | [facility] | Alanis, | Medication Refill | | 2017 | | MEDICINE [address] [place] [address] | MD Petrona | | | | | [facility] | [address] [place] [address] | | | | | [place] [address] | [place] [address] | | | | | [phone] | [phone] | | | | | | | [...] [place] | | | | | | [place] [address] | | | | | | [phone] | | | | | | | | +--------+ + + + + | 12/20/ | Office | Audiology | DarioElisabet ramires MS | | | 2019 | Visit | | [facility] [address] [place] | | | | | | [place], [place] [address] | | | | | | [phone] | | | | | | | | +--------+ + + + + | 12/20/ | Office | Otolaryngology | Ulysses Genao MD | | | 2019 | Visit | | [address] | | | | | | [address] [place], | | | | | | [place] [address] | | | | | | [phone] | | | | | | | | +--------+ + + + + documented as of this encounter Visit Diagnoses Not on filedocumented in this encounter"
--- OUTSIDE RECORDS SUMMARY | ~2019-10-16 | XMS | Encounter Summary ---
Demographics + + + | Address | [address] | | | [place] [address] | + + + | Home Phone [...] Providers + +------+ + | Care Carpenter Wooden Tank Erecting Name | Role | Phone | + [...] + + | 01/21/ | Telephone | [facility] | Alanis, | Pain | | 2019 | | MEDICINE [address] [place] [address] | MD Petrona | | | | | [facility] | [address] [place] [address] | | | | | [place] [address] | [place] [address] | | | | | [phone] | [phone] | | | | | | | [...] | | | | | [place] [address] | | | | | | [phone] | | | | | | | | +--------+ + + + + | 12/20/ | Office | Audiology | Elisabet Munson MS | | 2019 | Visit | | [facility] [address] | | | | [address] [place] | | | | | | [place] [address] | | | | | | [phone] | | | | | | | | +--------+ + + + + | 12/20/ | Office | Otolaryngology | Ulysses Genao MD | | | 2020 | Visit | | [address] [facility] | | | | | | [address] [place], | | | | | | [place] [address] | | | | | | [phone] | | | | | | | | +--------+ + + + + documented as of this encounter Visit Diagnoses Not on filedocumented in this encounter"
--- OUTSIDE RECORDS SUMMARY | ~2019-10-16 | XMS | Encounter Summary ---
Demographics + + + | Address | [address] | | | [place] [address] | + + + | Home Phone [...] Providers + +------+ + | Care Charge Master Coordinator Name | Role | Phone | [...] [id number] | | | | | | [place], [place] | | | | | | [address] | | | | | | [phone] | | | +--------+--------+ + + + [...]
--- OUTSIDE RECORDS SUMMARY | ~2019-10-16 | XMS | Encounter Summary ---
Demographics + + + | Address | [address] | | | [place] [address] | + + + | Home Phone [...] Providers + +------+ + | Care Gravity Flow Irrigator Name | Role | Phone | [...] | | | | | laterality | [address] | [address] | | | | | Dysfunction | Phone: | Phone: | | | | | of left | [phone] | [phone] | | | | | eustachian | Fax: | Fax: | | | | | tube | [phone] | [phone] | +--------+ + + + + + [...] [place], | unspecified | | | | [place], [place] | [place] [address] | laterality (Primary | | | | [address] | [phone] | Dx); Dysfunction of | | | | [phone] | | left eustachian tube | +--------+ [...] | | | | [address] [facility] | | | | | | [place] [address] | | | | | | [phone] | | | | | | | | +--------+ + + + + | 12/20/ | Office | Audiology | Elisabet Munson MS | | | 2019 | Visit | | [facility] | | | | | | [address] | | | | | | [place] [address] | | | | | | [phone] | | | | | | | | +--------+ + + + + | 12/20/ | Office | Otolaryngology | Ulysses Genao MD | | | 2020 | Visit | | [address] | | | | | | [address] [place], | | | | | | [place] [address] | | | | | | [phone] | | | | | | | [...]
--- OUTSIDE RECORDS SUMMARY | ~2019-10-16 | XMS | Encounter Summary ---
[...] Providers + +------+ + | Care Building Mover Name | Role | Phone | + +------+ + | Crystal Gutierrez MD | PCP | | + +------+ + Encounter Details +--------+ + + + + | Date | Type | Department | Care Team | Description | +--------+ + + + + | 09/14/ | Procedure - | [facility] Division of | Endoscopy, Gi | [...] [address] | | | | | | [place], [place] | | | | | | [address] | | | | | | [phone] | | | +--------+ + + + [...] + + + | PROCEDURES:PANENDOSCOPY (EGD) CPT: [id number]. PERSONNEL:THE | | | ATTENDING PHYSICIAN WAS [...] AM PDT | | PROCEDURES:PANENDOSCOPY (EGD) CPT: [id number]. | | PERSONNEL:THE ATTENDING PHYSICIAN WAS PRESENT [...]
--- OUTSIDE RECORDS SUMMARY | ~2019-10-16 | XMS | Encounter Summary ---
[...] Providers + +------+ + | Care Manager Recovery Name | Role | Phone | [...] as of this encounter Progress Notes Interface, Wrapper Caser In - 10/15/2005 2:06 AM PDT [id number] [facility] Date: 09/18/2005 Clinic: Ms. [...] about a month. Chris Padgett M.D. / [id number] / [id number] / [id number] / [id number] Electronically signed by Chris Padgett 10-14-2005 08:13:46 AM documented i n this encounter Plan of Treatment Not on filedocumented as of this encounter Visit Diagnoses Not on filedocumented in this encounter"
--- OUTSIDE RECORDS SUMMARY | ~2019-10-16 | XMS | Encounter Summary ---
Demographics + + + | Address | [address] | | | [place] [address] | + + + | Home Phone [...] Providers + +------+ + | Care Cashier Supervisor Name | Role | Phone | + +------+ + | Sulaiman Carrera MD | PCP | | + +------+ + Encounter Details +--------+ + + + + | Date | Type | Department | Care Team | Description | +--------+ + + + + | 07/30/ | Ancillary | Registration 3181 | Beto Meeks MD | | | 2006 | Registratio | [facility] | [address] | | | | n | Peterson Mailcode: RPB07 | [place], [place] | | | | | [place], [place] | [address] | | | | | [address] | [phone] | | | | | [phone] | | | +--------+ + + + [...] | | | | | performed by [employer] | pg/mL | | | | | [facility]. | | | | + + + + + + + + | Specimen | + + | | + + + + + + + | Performing | Address | City/State/Zipcode | Phone Number | | Organization | | | | + + + + + | [facility] | [address] | [place] [address] | | | LABORATORY | | | [...] at: | | | | | | Docstoc,500 | | | | | | [facility] | | | | | | [address] | | | | | | [email or web address] | | | | + + + + + + + + | Specimen | + + | | + + + + + + + | Performing | Address | City/State/Zipcode | Phone Number | | Organization | | | | + + + + + | [facility] | [address] | [place], [place] | | | [facility] | | [address] | | + + + + + [...] Iron and TIBC, Serum Test performed by [facility] | | | [facility]. | | + + + + + + + + | Performing | Address | City/State/Zipcode | Phone Number | | Organization | | | | + + + + + | [facility] | [address] | [place] [address] | | | LABORATORY | | | [...] | B12, SERUM | Test performed by [place] | | | | | | [facility] | | | | | | Laboratories. | | | | + + + + + + + + | Specimen | + + | | + + + + + + + | Performing | Address | City/State/Zipcode | Phone Number | | Organization | | | | + + + + + | [facility] | [address] | [place] [address] | | | LABORATORY | | | [...] [facility] DEPARTMENT OF | [address] | [place] [address] | | | PATHOLOGY | [address] | | | + + + + + | [place] DEPARTMENT OF | [address] | [place] [address] | | | PATHOLOGY | [address] [...] OF | [address] | [place] [address] | | | PATHOLOGY | [address] | | | + + + + + | [facility] | [facility] [address] | [place] [address] | | | PATHOLOGY | [address] [...] Performed At | + + + | [id number] Estimated GFR > 60 mL/min/1.73 sq m if non- | [facility] | | [id number] Estimated GFR > 60 mL/min/1.73 sq m [...] + + | [facility] | [address] | [place] [address] | | | PATHOLOGY | [address] | | | + + + + + | [facility] | [address] | [place] [address] | | | PATHOLOGY | [address] | | | + + + + + documented in this encounter Visit Diagnoses Not on filedocumented in this encounter"
--- OUTSIDE RECORDS SUMMARY | ~2019-10-16 | XMS | Encounter Summary ---
Demographics + + + | Address | [address] | | | [place] [address] | + + + | Home Phone [...] as of this encounter Progress Notes Interface, Emd Teacher In - 11/19/2005 3:09 AM PDT [place] [facility] [address] [place] [address] or May 09, 2003 Pedrito Gutierrez M.D. [address] [place] [address] RE: BELINDA MEEHAN MR #: [id number] Dear Dr. Gutierrez: I had the pleasure [...] this testing done through your clinic in [place]. I will plan to see her again [...] regarding her condition. Sincerely, Issac Meeks M.D. law office manager, Division of Endocrinology, Diabetes, and Clinical Branch Rental Manager, Metabolic Disorders Clinic PBD / HS [id number] / [id number] / [id number] / Tdocumented in this encounter Plan of Treatment Not on filedocumented as of this encounter Visit Diagnoses Not on filedocumented in this encounter"
--- OUTSIDE RECORDS SUMMARY | ~2019-10-16 | XMS | Encounter Summary ---
Demographics + + + | Address | [address] | | | [place] [address] | + + + | Home Phone [...] Providers + +------+ + | Care Veneer Stapler Name | Role | Phone | + [...]
--- OUTSIDE RECORDS SUMMARY | ~2019-10-16 | XMS | Encounter Summary ---
Demographics + + + | Address | [address] | | | [place] [address] | + + + | Home Phone [...] + +------+ + | Care Director Of Neurology Name | Role | Phone | + +------+ + | Petrona Thapa | PCP | | | MD | | | + +------+ + Encounter Details +--------+ + + + + | Date | Type | Department | Care Team | Description | +--------+ + + + + | 07/09/ | Abstract | [facility] | Alanis, | | | 2018 | | MEDICINE [address] | MD Petrona | | | | | [facility] | [address] [facility] | | | | | [place] [address] | [place] [address] | | | | | [phone] | [phone] | | | | | | | [...] | | | | | [place] [address] | | | | | | [phone] | | | | | | | | +--------+ + + + + | 12/20/ | Office | Audiology | Elisabte Munson MS | | | 2019 | Visit | | [facility] [address] | | | | | | [address] [place] | | | | | | [place] [address] | | | | | | [phone] | | | | | | | | +--------+ + + + + | 12/20/ | Office | Otolaryngology | Ulysses Genao MD | | | 2019 | Visit | | [address] | | | | | | [address] [place], | | | | | | [place] [address] | | | | | | [phone] | | | | | | | [...]
--- OUTSIDE RECORDS SUMMARY | ~2019-10-16 | XMS | Encounter Summary ---
Demographics + + + | Address | [address] | | | [place] [address] | + + + | Home Phone [...] Providers + +------+ + | Care Engraver Apprentice Decorative Name | Role | Phone | + [...] + + | 05/11/ | Telephone | [facility] | Alanis, | Results | | 2017 | | MEDICINE [address] [place] [address] | MD Petrona | | | | | [facility] | [address] [place] [address] | | | | | [place] [address] | [place] [address] | | | | | [phone] | [phone] | | | | | | | [...] | | | | | [place] [address] | | | | | | [phone] | | | | | | | | +--------+ + + + + | 12/20/ | Office | Audiology | Elisabet Munson MS | | 2019 | Visit | | [facility] [address] | | | | | | [address] [place] | | | | | | [place] [address] | | | | | | [phone] | | | | | | | | +--------+ + + + + | 12/20/ | Office | Otolaryngology | Ulysses Genao MD | | | 2019 | Visit | | [address] | | | | | | [address] [place], | | | | | | [place] [address] | | | | | | [phone] | | | | | | | | +--------+ + + + + documented as of this encounter Visit Diagnoses + + | Diagnosis | + + | Acute bilateral low back pain with bilateral sciatica - Primary | + + documented in this encounter"
--- OUTSIDE RECORDS SUMMARY | ~2019-10-16 | XMS | Encounter Summary ---
Demographics + + + | Address | [address] | | | [place] [address] | + + + | Home Phone [...] + +------+ + | Care Automotive Painter Helper Name | Role | Phone | + +------+ + | Sulaiman Carrera MD | PCP | | + +------+ + Encounter Details +--------+ + + + + | Date | Type | Department | Care Team | Description | +--------+ + + + + | 01/29/ | Ancillary | Registration 3181 | Beto Meeks MD | | | 2005 | Registratio | [facility] | [address] | | | | n | [address] Mailcode: RPB07 | [place], [place] | | | | | [place], [place] | [address] | | | | | [address] | [phone] | | | | | [phone] | | | +--------+ + + + [...] [facility] | [address] | [place], [place] | | | [facility] | | [address] | | + + + + + [...] | uIU/ml | | | | | [facility] | | | | | | Laboratories. | | | | + + + + + + + + | Specimen | + + | | + + + + + + + | Performing | Address | City/State/Zipcode | Phone Number | | Organization | | | | + + + + + | [facility] | [address] | [place] [address] | | | LABORATORY | | | [...] BASO # | 0.0 | <0.3 | [facility] | | | | | | DEPARTMENT [...] [facility] DE[facility] OF | [address] [facility] | [place] [address] | | | PATHOLOGY | [address] | | | + + + + + | [facility] DEPARTMENT OF | [address] | [place] [address] | | | PATHOLOGY | [address] [...] DEPARTMENT OF | [address] | [place], [place] [address] | | | PATHOLOGY | [address] | | | + + + + + | [facility] DEPARTMENT OF | [address] | [place] [address] | | | PATHOLOGY | [address] [...] Performed At | + + + | [id number] Estimated GFR > 60 mL/min/1.73 sq m if non- | [facility] | | [id number] Estimated GFR > 60 mL/min/1.73 sq m [...] DEPARTMENT OF | [address] | [place] [address] | | | PATHOLOGY | [address] | | | + + + + + | [facility] DEPARTMENT OF | [address] | [place] [address] | | | PATHOLOGY | [address] | | | + + + + + documented in this encounter Visit Diagnoses Not on filedocumented in this encounter"
--- OUTSIDE RECORDS SUMMARY | ~2019-10-16 | XMS | Encounter Summary ---
Demographics + + + | Address | [address] | | | [place] [address] | + + + | Home Phone [...] + +------+ + | Care Natural Gas Field Processing Supervisor Name | Role | Phone [...] + + | 10/16/ | Telephone | [facility] | Alanis, | Wrist Pain | | 2018 | | MEDICINE [address] [place] [address] | MD Petrona | | | | | [facility] | [address] [place] [address] | | | | | [place] [address] | [place] [address] | | | | | [phone] | [phone] | | | | | | | [...] | | | | | [place] [address] | | | | | | [phone] | | | | | | | | +--------+ + + + + | 12/20/ | Office | Audiology | Elisabet Munson MS | | 2019 | Visit | | [facility] | | | | | | [address] [place] | | | | | | [place] [address] | | | | | | [phone] | | | | | | | | +--------+ + + + + | 12/20/ | Office | Otolaryngology | Ulysses Genao MD | | | 2020 | Visit | | [address] | | | | | | [address] [place], | | | | | | [place] [address] | | | | | | [phone] | | | | | | | | +--------+ + + + + documented as of this encounter Visit Diagnoses Not on filedocumented in this encounter"
--- OUTSIDE RECORDS SUMMARY | ~2019-10-16 | XMS | Encounter Summary ---
Demographics + + + | Address | [address] | | | [place] [address] | + + + | Home Phone [...] Providers + +------+ + | Care Test Deskman Name | Role | Phone | + [...] | | | [place], [place] | [place], [place] | | | | | [address] | [address] | | | | | [phone] | [phone] | | | | | | | [...]
--- OUTSIDE RECORDS SUMMARY | ~2019-10-16 | XMS | Encounter Summary ---
Demographics + + + | Address | [address] | | | [place] [address] | + + + | Home Phone [...] Providers + +------+ + | Care Principal Planner Name | Role | Phone | [...] | | | | pain | Jayce Athol | [facility] [address] | | | | | Procedures | [address] | [address] | | | | | CONSULT TO | [place] | [place] | | | | | GI PROCEDURE | [address] | [address] | | | | | UNIT: | Phone: | | | | | | COLONOSCOPY | [phone] | | | | | | | Fax: | | | | | | | [phone] | | + + + + + [...] | | | | Mailcode: L223A | [place], [place] | | | | | [facility] | [address] | | | | | [address] [place], [place] | [phone] | | | | | [address] | | | | | | [phone] | | | +--------+---------+ + + + [...] REG | [address] | [place], [place] | | | [facility] | | [address] | | + + + + + documented in this encounter Visit Diagnoses + + | Diagnosis | + + | Chronic abdominal pain - Primary Abdominal pain, unspecified site | + + documented in this encounter
--- OUTSIDE RECORDS SUMMARY | ~2019-10-16 | XMS | Encounter Summary ---
Demographics + + + | Address | [address] | | | [place] [address] | + + + | Home Phone [...] Team Providers + +------+ + | Care Pre Wave Assembler Name | Role | Phone | [...] of this encounter Progress Notes Interface, Supervisor Covering And Lining In - 01/12/2005 6:[address] [facility] Date: 11/27/2003 Clinic: Surgery Clinic Subjective: This patient of Dr. Chris Padgett walks into clinic today to discuss her laparoscopic incisions and a lesion on her lower back. She was discharged from [facility] approximately 36 hours ago [...] discharge and would like to proceed to [place], where her home is. She agrees to [...] additional questions. Liliya Kirkpatrick. NELLY / SHARIF [id number] / [id number] / [id number] / [id number] Tdocumented in this encounter Plan of Treatment Not on filedocumented as of this encounter Visit Diagnoses Not on filedocumented in this encounter"
--- OUTSIDE RECORDS SUMMARY | ~2019-10-16 | XMS | Encounter Summary ---
Demographics + + + | Address | [address] | | | [place] [address] | + + + | Home Phone [...] Providers + +------+ + | Care Senior Site Manager Name | Role | Phone [...] Floor | | | | | | [place], [place] | | | | | | [address] | | | | | | [phone] | | | +--------+ + + + [...] No: | | | | | | [id number] Name: | | | | | | BELINDA MEEHAN | | | | | | Birthday: 1960 | | | | | | Sex: F | | | | | | Alias:Patient Location: | | | | | | [id number]: Outpatient | | | | | | ActiveOrdering | | | | | | Physician: JOSÉ MIGUEL | | | | | | MARYSOL MORENO SCAPULA | | | | | | COMPLETE completed on | | | | | | 01/01/2009 11:55 | | | | | | AMAccession # | | | | | | [id number]:LEFT | | | | | | SCAPULA [...]
--- OUTSIDE RECORDS SUMMARY | ~2019-10-16 | XMS | Encounter Summary ---
Demographics + + + | Address | [address] | | | [place] [address] | + + + | Home Phone [...] | Pain | Diagnoses | [place], | [place], | | | | Management | LBP (low | NIHARIKA Jean | Lukasz Rhodes, PhD | | | | | back pain) | [address] | [address] | | | | | DJD | [address] | Ave | | | | | (degenerativ | [place], [place] | [place], [place] | | | | | e joint | [address] | [address] | | | | | disease) of | | Phone: | | | | | knee Knee | | [phone] | | | | | pain Major | | Fax: | | | | | depressive | | [phone] | | | | | disorder, | [...] 04/13/ | Office | [facility] | Lukasz Charles, | Major Depressive | | 2007 | Visit | [address] | PhD [address] | Disorder, Recurrent | | | | Mailcode: 15P | [place], [place] | Episode, Mild (HCC); | | | | [place] [facility] | [address] | LBP (Low Back | | | | and Healing, | [phone] | Pain); Migraine | | | | | | Headache; Adjustment | | | | Floor [place], [place] | | Disorder with | | | | [address] | | Anxiety | | | | [phone] | | | +--------+---------+ + + + [...] plans for her surgical recovery period. Diagnosis: [place] I: 1. (296.31) Major depressive disorder, recurrent, mild. 2. (309.24) Adjustment disorder with anxiety. 3. 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 [place] II: Deferred [place] III: abdominal pain, migraine headache, low back pain. [place] IV: low finances [place] V: GAF 55-60 Plan: return with next medical follow-up appointment. Check mood, pain, relaxation, activ ity, distraction, eating. Ask about headaches, fainting, surgery. Continue cognitive/behav ioral therapy. Total time spent with patient was approximately 45 minutes. LUKASZ CHARLES PHD [facility] [address] [facility] [address] [address] documented in this encount er Plan of Treatment + + +--------+ + + | Name | Type | Priori | Associated Diagnoses | Order Schedule | | | | ty | | | + + +--------+ + + | [facility], | Procedures | Routin | Major Depressive | Ordered: 04/13/2008 | | OFFICE (30-71) | | e | Disorder, Recurrent | [...]
--- OUTSIDE RECORDS SUMMARY | ~2019-10-16 | XMS | Encounter Summary ---
Demographics + + + | Address | [address] | | | [place] [address] | + + + | Home Phone [...] Team Providers + +------+ + | Care Kingsbury Machine Operator Name | Role | Phone | + +------+ + | Pedrito Gutierrez MD | PCP | | + +------+ + Encounter Details +--------+ + + + + | Date | Type | Department | Care Team | Description | +--------+ + + + + | 01/11/ | Telephone | [facility] | Chris Padgett, | | | 2009 | | [place] [address] | [address] [facility] | | | | | Bethanie Mailcode: CH4S | [facility] | | | | | Center for [facility] | [place], [place] | | | | | and Healing, | [address] | | | | | Building | [phone] | | | | | Floor [place], [place] | | | | | | [address] | | | | | | [phone] | | | +--------+ + + + [...]
--- OUTSIDE RECORDS SUMMARY | ~2019-10-16 | XMS | Encounter Summary ---
Demographics + + + | Address | [address] | | | [place] [address] | + + + | Home Phone [...] Providers + +------+ + | Care Server Cashier Name | Role | Phone | [...] + + | 12/20/ | Office | [facility] | Ulysses Genao MD | Meniere's disease of | | 2019 | Visit | OTOLARYNGOLOGY [address] | [address] | right ear (Primary | | | | [address] | [address] [place], | Dx); Benign | | | | [place] | [place] [address] | paroxysmal | | | | [address] | [phone] | positional vertigo, | | | | [phone] | | unspecified | | | | [...] tympanog ainsley were A tympanograms. Her speech finished yarn examiner threshold is 30 dB in the right [...] sched uled for a Tayler maneuver in [place]. Extended time was spent with the patient.Electronic [...] | | | | | | [address] [place] [address] [place] | | | | | | [place] [address] | | | | | | [phone] | | | | | | | | +--------+ + + + + | 12/20/ | Office | Audiology | Elisabet Munson MS | | | 2019 | Visit | | [facility] [address] | | | | | [address] [place] | | | | | | [place], [place] [address] | | | | | | [phone] | | | | | | | | +--------+ + + + + | 12/20/ | Office | Otolaryngology | Ulysses Genao MD | | | 2019 | Visit | | [address] | | | | | | [address] [place], | | | | | | [place] [address] | | | | | | [phone] | | | | | | | | +--------+ + + + + documented as of this encounter Visit Diagnoses + + | Diagnosis | + + | Meniere's disease of right ear - Primary Meniere's disease, unspecified | + + | Benign paroxysmal positional vertigo, unspecified laterality | + + documented in this encounter
--- OUTSIDE RECORDS SUMMARY | ~2019-10-16 | XMS | Encounter Summary ---
Demographics + + + | Address | [address] | | | [place] [address] | + + + | Home Phone [...] Team Providers + +------+ + | Care Advice Line Rn Name | Role | Phone | [...] Rd | | | | | [place], [place] | [place], [place] | | | | | [address] | [address] | | | | | [phone] | [phone] | | | | | | | [...] [place] | [address] | [place] [address] | | | PATHOLOGY | [address] | | | + + + + + | [facility] | [address] | [place] [address] | | | PATHOLOGY | [address] [...] [facility] DEPARTMENT OF | [address] | [place] [address] | | | PATHOLOGY | [address] | | | + + + + + | [place] DEPARTMENT OF | [address] | [place] [address] | | | PATHOLOGY | [address] [...] [facility] DEPARTMENT OF | [address] [facility] | [place] [address] | | | PATHOLOGY | [address] | | | + + + + + | [facility] DEPARTMENT OF | [address] [facility] | [place] [address] | | | PATHOLOGY | [address] [...] | [facility] | [address] [place] [address] | [place] [address] | | | PATHOLOGY | [address] | | | + + + + + | [facility] DEPARTMENT OF | [facility] | [place] [address] | | | PATHOLOGY | [address] | | | + + + + + documented in this encounter Visit Diagnoses Not on filedocumented in this encounter"
--- OUTSIDE RECORDS SUMMARY | ~2019-10-16 | XMS | Encounter Summary ---
Demographics + + + | Address | [address] | | | [place] [address] | + + + | Home Phone [...] Team Providers + +------+ + | Care Investor Name | Role | Phone | + [...] | | | | Clinical Nutrition | [place], [place] | | | | | [address] | [address] | | | | | Loop Mailcode: OPC5 | [phone] | | | | | Outpatient Clinic | | | | | | [facility] | | | | | | [place] [address] | | | | | | [phone] | | | +--------+ + + + [...] + + | [facility] | [address] | [place] [address] | | | LABORATORY | | | [...] + + + | [facility] | [address] | [place] [address] | | | LABORATORY | | | [...] + + | [facility] | [address] | [place] [address] | | | LABORATORY | | | | + + + + + documented in this encounter Visit Diagnoses Not on filedocumented in this encounter"
--- OUTSIDE RECORDS SUMMARY | ~2019-10-16 | XMS | Encounter Summary ---
Demographics + + + | Address | [address] | | | [place] [address] | + + + | Home Phone [...] Providers + +------+ + | Care Animal Caregiver Name | Role | Phone | [...] + | 04/09/ | Refill | [facility] | Alanis, | Medication Refill | | 2017 | | MEDICINE [place] | MD [place] | | | | | [address] | [address] [facility] | | | | | [place] | [facility] [place] [address] | | | | | [address] | [phone] | | | | | [phone] | | | +--------+--------+ + + + [...] | | | | | [place] [address] | | | | | | [phone] | | | | | | | | +--------+ + + + + | 07/08/ | Office | Audiology | Ceasar MunsonMS rafa | | | 2019 | Visit | | [facility] [address] | | | | [address] [place] | | | | | | [place], [place] [address] | | | | | | [phone] | | | | | | | | +--------+ + + + + | 12/20/ | Office | Otolaryngology | Ulysses Genao MD | | | 2019 | Visit | | [address] | | | | | | [address] [place], | | | | | | [place] [address] | | | | | | [phone] | | | | | | | | +--------+ + + + + documented as of this encounter Visit Diagnoses Not on filedocumented in this encounter"
--- OUTSIDE RECORDS SUMMARY | ~2019-10-16 | XMS | Encounter Summary ---
Demographics + + + | Address | [address] | | | [place] [address] | + + + | Home Phone [...] | [facility] [address] | Clementina Winkler [place], | Region; Neck Pain; | | | | [address] Mailcode: | [place] [address] | Herniated Lumbar | | | | CH15P [facility] for | | Intervertebral Disc | | | | Health and Healing, | | L4-5; Fibromyalgia | | | | | | syndrome [address] | | | | Floor [place], [place] | | | | | | [address] | | | | | | [phone] | | | +--------+---------+ + + + [...] August 12, 2006 Patient: Belinda Molly Meehan, [id number], 1960 I agree with the proposed Physical Therapy Treatment Plan. Provider: DELFINA MOLINA ANP Nathalia Keyes - 007 12:04 PM PST Physical Therapy Medicare Progress Note Date: 08/12/2006 Belinda Meehan [id number]. 1960 Start of Care: 06/23/2006 Referring Provider: [...] [facility] | Procedures | Routin | Spondylosis [...] [facility] | Procedures | Routin | Spondylosis [...]
--- OUTSIDE RECORDS SUMMARY | ~2019-10-16 | XMS | Encounter Summary ---
Demographics + + + | Address | [address] | | | [place] [address] | + + + | Home Phone [...] Providers + +------+ + | Care Software Engineer Name | Role | Phone [...] | | Osteoporosis | i, | [address] | | | | | , | Petrona | [place], | | | | | unspecified | , MD [address] | [place] [address] | | | | | osteoporosis | [address] | Phone: | | | | | type, | [place], | [phone] | | | | | unspecified | [place] | Fax: | | | | | pathological | [address] | [phone] | | | | | fracture | Phone: | | | | | | presence | [phone] | | | | | | Procedures | Fax: | | | | | | [place] | [phone] | | | | | | ZOLEDRONIC | | | | | | | ACID 1MG | | | +--------+ + + + + + Encounter Details +--------+ + + + + | Date | Type | Department | Care Team | Description | +--------+ + + + + | 07/20/ | Orders Only | [facility] | Alanis, | Osteoporosis, | | 2018 | | MEDICINE [address] [place] [address] | MD Petrona | unspecified | | | | [facility] | [address] [place] [address] | osteoporosis type, | | | | [place] [address] | [place] [address] | unspecified | | | | [phone] | [phone] | pathological | | | | | [...] | | | | | [place] [address] | | | | | | [phone] | | | | | | | | +--------+ + + + + | 12/20/ | Office | Audiology | Elisabet Munson MS | | | 2019 | Visit | | [facility] [address] | | | | | | [address] [place] | | | | | | [place] [address] | | | | | | [phone] | | | | | | | | +--------+ + + + + | 12/20/ | Office | Otolaryngology | Ulysses Genao MD | | | 2019 | Visit | | [address] [place] | | | | | | [address] [place], | | | | | | [place] [address] | | | | | | [phone] | | | | | | | [...]
--- OUTSIDE RECORDS SUMMARY | ~2019-10-16 | XMS | Encounter Summary ---
Demographics + + + | Address | [address] | | | [place] [address] | + + + | Home Phone [...] Providers + +------+ + | Care Print Press Operator Name | Role | Phone [...] Lab Results | | 2012 | | [place] at [facility] [address] | RADIO TESTER [address] | | | | | Sara Kovacs | [facility] 350 | | | | | Mailcode: Center | [place], [place] | | | | | for Health and | [address] | | | | | [place] [address] | [phone] | | | | | [place], [place] | | | | | | [address] | | | | | | [phone] | | | +--------+ + + + [...]
--- OUTSIDE RECORDS SUMMARY | ~2019-10-16 | XMS | Encounter Summary ---
Demographics + + + | Address | [address] | | | [place] [address] | + + + | Home Phone [...] Providers + +------+ + | Care Information Officer Name | Role | Phone [...] | | Center at [facility] [address] | BODYWORK THERAPIST [address] | | | | | Sara Kovacs | , [address] | | | | | Mailcode: Center | [place], [place] | | | | | [facility] and | [address] | | | | | Healing, Building [address] | [phone] | | | | | [place], [place] | | | | | | [address] | | | | | | [phone] | | | +--------+ + + + [...]
--- OUTSIDE RECORDS SUMMARY | ~2019-10-16 | XMS | Encounter Summary ---
Demographics + + + | Address | [address] | | | [place] [address] | + + + | Home Phone [...] Providers + +------+ + | Care Lease Analyst Name | Role | Phone | [...] | | | [place], | [address] | | | | | Sacroiliitis | Carlos Armijo MD | [place], | | | | | , not | [address] | [place] | | | | | elsewhere | [facility] | [address] | | | | | classified | [place] | Phone: | | | | | ([facility]) | [address] | [phone] | | | | | Procedures | Phone: | Fax: | | | | | [place] INJECT SI | [phone] | [phone] | | | | | JOINT | Fax: | | | | | | ARTHRGRPHY&/ | [phone] | | | | | | ANES/STEROID [...] + + | 02/27/ | Hospital | [facility] | Joe, | Bilateral | | 2015 | Encounter | MED CTR XRAY [address] | MARY Montero [address] | sacroiliitis (HCC) | | | | [place] | [facility] [address] | (Primary Dx); | | | | [place] [address] | [place] [address] | Chronic low back | | | | [phone] | [phone] | pain; SCOLIOSIS , | | | | | | IDIOPATHIC; S/P | | | | | Patternmaker Apprentice [facility]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; | | | [...] | | | | | [place] [address] | | | | | | [phone] | | | | | | | | +--------+ + + + + | 12/20/ | Office | Audiology | Elisabet Munson MS | | | 2019 | Visit | | [facility] [address] | | | | | | [address] [place] | | | | | | [place] [address] | | | | | | [phone] | | | | | | | | +--------+ + + + + | 12/20/ | Office | Otolaryngology | Ulysses Genao MD | | | 2019 | Visit | | [address] [place] | | | | | | [address] [place], | | | | | | [place] [address] | | | | | | [phone] | | | | | | | [...] Belinda Meehan presents to the | [facility] | | fluoroscopy suite for fluoroscopically guided bilateral sacroiliac [facility] | | joint steroid injections as [...] + + + + + | [facility] | [address] | [place], [place] | [phone] | | [facility] | | [address] | | | - IMAGING | | [...] Belinda Meehan presents to the | [facility] | | fluoroscopy suite for fluoroscopically guided bilateral sacroiliac [facility] | | joint steroid injections as [...] + | [facility] | [address] | [place], [place] | [phone] | | [facility] | | [address] | | | - IMAGING | | [...]
--- OUTSIDE RECORDS SUMMARY | ~2019-10-16 | XMS | Encounter Summary ---
Demographics + + + | Address | [address] | | | [place] [address] | + + + | Home Phone [...] Providers + +------+ + | Care Security Systems Engineer Name | Role | Phone [...] Rd | | | | | | [place], [place] | | | | | | [address] | | | +--------+ + + + [...]
--- OUTSIDE RECORDS SUMMARY | ~2019-10-16 | XMS | Encounter Summary ---
Demographics + + + | Address | [address] | | | [place] [address] | + + + | Home Phone [...] Refill Request | | 2007 | | [place] [address] | [address] | (Sucralfate) | | | | Bethanie Mailcode: CH4S | [facility] | | | | | [facility] | [place], [place] | | | | | and Healing, | [address] | | | | | [facility] | [phone] | | | | | Floor [place], [place] | | | | | | [address] | | | | | | [phone] | | | +--------+--------+ + + + [...]
--- OUTSIDE RECORDS SUMMARY | ~2019-10-16 | XMS | Encounter Summary ---
Demographics + + + | Address | [address] | | | [place] [address] | + + + | Home Phone [...] Team Providers + +------+ + | Care Instrument/Control Technician Name | Role | Phone | [...] | | | [address] | [place], [place] | Examination; HTN | | | | [address] | [address] | (Hypertension); | | | | Mailcode: UHN65 | [phone] | Chronic Pain | | | | [facility] | | | | | | [address] [facility] [place] | | | | | | [address] | | | | | | [phone] | | | +--------+---------+ + + + [...] dietary restrictions or a bowel preparation. Your [facility] gical team will give you additional printed [...] PM please call your surgeons' office for [id number]. PARKING Parking for patients and visitors is available in the [facility] Parking structure located across from [...] ADVICE FOR DAY OF SURGERY: Remove nail panamanian from at least one fingernail (if applicable) [...] surgeries scheduled to take place on the lacarne at the [facility]: Surgeries scheduled in the [facility] ([address] [place] [address]): registration is located on the 4th floor of [facility] (Day Surgery). Surgeries scheduled in the [facility]: registration is located on the 9th floor . For surgeries scheduled to take place at the [facility]: registration i s located on the 4th floor (Surgery Center). AVOID THESE MEDICATIONS FOR 7 DAYS BEFORE SURGERY PRODUCTS CONTAINING ASPIRIN Jacquelyn-Stockdale, Anacin, Anexsia with Codeine, Len nos, Aspirin, Aspirin suppositories, Ascri ptin, Aspergum, Axotal, B-A-C, Baby Aspirin, Lucila, BC Powder, Bexophene, Buffaprin, Bufferi n, Buffinol, Cama-Arthritis Strength, Congespirin, [place], Coricidin, Damason, Darvon, Dristan , Anastasia-Gesic, Digel, Dolprin #3 Tablets, Donatab, Doxaphene, Duragesic, Easprin, Ecotrin, Dipika grin Forte, Emiprin, Emprazil, Equagesic, Equazine M, Excedrin, Fiogesic, Fiorgen PH, Fioric et, Fiorinal, 4-Way Cold Tablet Gemnisyn, Indocin, Liquprin, Lortab ASA, Magnaprin, Marnal, Meprobamate, Midol, Momentum, N orgesic, [place], Orphengesic, Pabalate, P-A-C, Percodan, Presalin, Robaxasil, Roxiprin, Bunny eto, Salocol SK-65 Compound, Sine-Aid, Sine-Off,, [place], Supac, Talwin Compound, Trigesic, Tolectin , Traiminicin, Vanquish, ZORprin, Zomax PRODUCTS CONTAINING IBUPROFEN Advil, Aleve, Haltran, Medipren, Midol, Motrin, Naproxyn, Nuprin, Rufen OTHER PRODUCTS WHICH MAY PROMOTE BLEEDING Vitamin E, Gingko Biloba, Marine Fatty Acids, [place]-3 Fish Oil Supplements documented in this encounter [...] + + + + + | [facility] | [address] [facility] | [place] [address] | | | PATHOLOGY | [address] | | | + + + + + | [facility] DEPART[facility] OF | [address] [facility] | [place] [address] | | | PATHOLOGY | [address] [...] + + + + + | [facility] DEPARTMENT OF | [address] | [place] [address] | | | PATHOLOGY | [address] | | | + + + + + | [facility] | [address] | [place] [address] | | | PATHOLOGY | [address] [...] | | | DEPARTMENT | | | RUSSIAN | | | OF | | | [...] + | [facility] | [address] | [place] [address] | | | PATHOLOGY | [address] | | | + + + + + | [facility] | [address] | [place] [address] | | | PATHOLOGY | [address] [...] + + + + + | [facility] DEPARTMENT OF | [address] | [place] [address] | | | PATHOLOGY | [address] | | | + + + + + | [place] DEPARTMENT OF | [address] | [place] [address] | | | PATHOLOGY | [address] [...] view image for the detailed interpretation from [employer] results. | CARDIOLOGY | | | | + + + + + + + + | Performing | Address | City/State/Zipcode | Phone Number | | Organization | | | | + + + + + | [facility] DEPT OF | [address] | [place], [place] | | | CARDIOLOGY | [address] | [address] | | + + + + + | [facility] DEPT OF | [address] | [place], [place] | | | CARDIOLOGY | [address] | [address] | | + + + + + [...]
--- OUTSIDE RECORDS SUMMARY | ~2019-10-16 | XMS | Encounter Summary ---
Demographics + + + | Address | [address] | | | [place] [address] | + + + | Home Phone [...] Team Providers + +------+ + | Care Any Commodity Buyer Name | Role | Phone | + +------+ + | Pedrito Gutierrez MD | PCP | | + +------+ + Encounter Details +--------+ + + + + | Date | Type | Department | Care Team | Description | +--------+ + + + + | 12/26/ | Telephone | [facility] | Lukasz Ogden, | | | 2007 | | Pain Center at | PhD [address] | | | | | [facility][Note 3] | [place], [place] | | | | | [address] | [address] | | | | | Mailcode: CH15P | [phone] | | | | | [facility] | | | | | | and [place], | | | | | | Building | | | | | | [place], [place] | | | | | | [address] | | | | | | [phone] | | | +--------+ + + + [...]
--- OUTSIDE RECORDS SUMMARY | ~2019-10-16 | XMS | Encounter Summary ---
Demographics + + + | Address | [address] | | | [place] [address] | + + + | Home Phone [...] Providers + +------+ + | Care Cork Tile Floor Layer Name | Role | [...] | | MD [address] | [place] [address] | | | | | | [address] | Phone: | | | | | | [place], | [phone] | | | | | | [place] | Fax: | | | | | | [address] | [phone] | | | | | | Phone: | | | | | | | [phone] | | | | | | | Fax: | | | | | | | [phone] | | +--------+ + + + + + Encounter Details +--------+---------+ + + + | Date | Type | Department | Care Team | Description | +--------+---------+ + + + | 10/18/ | Office | 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 | volvulus (HCC); | | | | [phone] | | Gastroesophageal | | | | | Luther Brito MD | reflux disease, | | | | | [address] | esophagitis presence | | | | | [place] | not specified | | | | | [address] | | | | | | [phone] | | | | | | | [...] | | | | | [place] [address] | | | | | | [phone] | | | | | | | | +--------+ + + + + | 12/20/ | Office | Audiology | Elisbaet Munson MS | | | 2019 | Visit | | [facility] [address] | | | | | | [address] [place] | | | | | | [place] [address] | | | | | | [phone] | | | | | | | | +--------+ + + + + | 12/20/ | Office | Otolaryngology | Ulysses Genao MD | | | 2019 | Visit | | [address] [place] | | | | | | [address] [place], | | | | | | [place] [address] | | | | | | [phone] | | | | | | | [...]
--- OUTSIDE RECORDS SUMMARY | ~2019-10-16 | XMS | Encounter Summary ---
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 She is doing PT as this point. With some benefit. She is concerned because she now has some poppin mahesh dlocking symptoms and wants to know if there si something that nursing home manager be done w ith a scope [...] Morphine IM ( only in [facility]) made gut pain worse 08/27/06: [...] MRI. Ramon Ibarra M.D. Sports Medicine [facility] Orthopaedics and Rehabilitation [address] [place], [place] [address] [phone] documented in this encoun ter Plan of [...]
--- OUTSIDE RECORDS SUMMARY | ~2019-10-16 | XMS | Encounter Summary ---
Demographics + + + | Address | [address] | | | [place] [address] | + + + | Home Phone [...] 05/29/ | Office | [facility] Center at [facility] | Lukasz Charles, | Major Depressive | | 2005 | Visit | [address] | PhD [address] | Disorder, Recurrent | | | | Mailcode: CH15P | [place], [place] | Episode, Moderate | | | | [facility] | [address] | ([facility]); Chronic | | | | and Healing, | [phone] | Abdominal Pain; | | | | Building | | Cervical Pain; | | | | Floor [place], [place] | | Headache; Adjustment | | | | [address] | | Disorder with | | | | [phone] | | Anxiety; Other Pain | | [...] Notes Lukasz Charles - 05/29/2006 6:15 PM [facility] Initial Psychological Wendy luation IDENTIFYING INFORMATION: Belinda Meehan is a 46 y.o. female Date of : 1960 Consulting Physician: LUKASZ CHARLES PHD Consultation Date: 05/29/2006 Referring Provider: Carlos Arreola Identifying Information: Belinda Meehan is a 46 y.o. female who lives in [facility] her 2 sons. The patient was referred [...] disability benefits. 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 Marital History: , not currently in [...] and decreasing depression and anx iety. Diagnosis: Saco I: 1. (296.32) Major depressive disorder, recurrent, moderate. 2. (309.24) Adjustment disorder with anxiety. 3. 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 Saco II: Deferred Saco III: abdominal pain, migraine headache, low back pain. Saco IV: low finances Saco V: GAF 50 Recommendations: 1. Psychological counseling to increase knowledge and use of cognitive and behavioral pain coping skills is recommended. The treatment should include relaxation training to improve c ontrol over physiologic responses to pain. Treatment should also focus on decreasing sympto ms of depression and increasing participation in social, recreational and leisure activities . Ms. 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 LUKASZ CHARLES PHD [facility] [address] [place] [address] And [facility], [address] [place] [address] documented [facility] Plan of Treatment + + +--------+ + + | Name | Type | Priori | Associated Diagnoses | Order Schedule | | | | ty | | | + + +--------+ + + | [facility] | Procedures | Routin | Major Depressive | Ordered: 05/29/2006 | | DIAGNOSTIC INTERVIEW | | e | Disorder, Recurrent | | | | | | Episode, Moderate | | | | | | ([facility]) Chronic | | | | | | [...]
--- OUTSIDE RECORDS SUMMARY | ~2019-10-16 | XMS | Encounter Summary ---
Demographics + + + | Address | [address] | | | [place] [address] | + + + | Home Phone [...] Team Providers + +------+ + | Care Utilization Management Rn Name | Role | Phone | [...] + + | 09/14/ | Clinical | [facility] | Alanis, | B12 deficiency | | 2019 | Support | MEDICINE [address] [place] [address] | MD [place]ron[place] | | | | | [facility] | [address] [place] [address] | | | | | [place] [address] | [place] [address] | | | | | [phone] | | | | | | | [...] documented as of this encounter Progress Notes Teresa Mitchell, [employer] Launch Commander - 09/15/2019 10:15 AM PDTFormatting of this note calderon ht be different from the original. Administrations This Visit cyanocobalamin (VITAMIN B-12) injection 1,000 mcg Admin Date 09/15/2019 Action Given Dose 1000 mcg Route Intramuscular Administered By Teresa Mitchell, [employer] Launch Commander do cumented in this encounter Plan of Treatment +--------+ [...] | | | [facility] [address] | | | | | | [place] [address] | | | | | | [phone] | | | | | | | | +--------+ + + + + | 12/20/ | Office | Audiology | Elisabet Munson MS | | | 2019 | Visit | | [facility] [address] | | | | | | [address] [place] | | | | | | [place], [place] [address] | | | | | | [phone] | | | | | | | | +--------+ + + + + | 12/20/ | Office | Otolaryngology | Ulysses Genao MD | | | 2019 | Visit | | [address] | | | | | | [address] [place], | | | | | | [place] [address] | | | | | | [phone] | | | | | | | [...]
--- OUTSIDE RECORDS SUMMARY | ~2019-10-16 | XMS | Encounter Summary ---
Demographics + + + | Address | [address] | | | [place] [address] | + + + | Home Phone [...] | | | | L[address] Physician's | [place], [place] | | | | | [address] | [address] | | | | | [place], [place] | [phone] | | | | | [address] | | | | | | [phone] | | | +--------+ + + + [...]
--- OUTSIDE RECORDS SUMMARY | ~2019-10-16 | XMS | Encounter Summary ---
Demographics + + + | Address | [address] | | | [place] [address] | + + + | Home Phone [...] Providers + +------+ + | Care Circuit Breaker Mechanic Name | Role | Phone | [...] + | 02/24/ | Refill | [facility] | [place], | Medication Refill | | 2017 | | MEDICINE [address] [place] [address] | MD [place]ron[place] | | | | | [facility] | [address] [place] [address] | | | | | [place] [address] | [place] [address] | | | | | [phone] | [phone] | | | | | | | [...] | | | | | [place] [address] | | | | | | [phone] | | | | | | | | +--------+ + + + + | 12/20/ | Office | Audiology | DarioElisabet ramires MS | | | 2019 | Visit | | [facility] [address] | | | | | | [address] [place] | | | | | | [place], [place] [address] | | | | | | [phone] | | | | | | | | +--------+ + + + + | 12/20/ | Office | Otolaryngology | Ulysses Genao MD | | | 2019 | Visit | | [address] | | | | | | [address] [place], | | | | | | [place] [address] | | | | | | [phone] | | | | | | | | +--------+ + + + + documented as of this encounter Visit Diagnoses Not on filedocumented in this encounter"
--- OUTSIDE RECORDS SUMMARY | ~2019-10-16 | XMS | Encounter Summary ---
Demographics + + + | Address | [address] | | | [place] [address] | + + + | Home Phone [...] Providers + +------+ + | Care Solid Tire Finisher Name | Role | Phone | [...] | | | central | [address] | HOSPITAL | | | | | origin, | [address] | [address] | | | | | unspecified | [place] | AVE | | | | | laterality | [place], [place] | [place] | | | | | Procedures | [address] | [address] | | | | | MRI Brain w | Phone: | Phone: | | | | | wo Contrast | [phone] | | | | | [place] MRI | Fax: | Fax: | | | | | BRAIN COMBO | [phone] | [phone] | +--------+--------+ + + + + Reason [...] | | escu [address] | [place] [address] | | | | | Procedures | [place], | Phone: | | | | | OFFICE VISIT | [place] | [phone] | | | | | REGULAR | [address] | Fax: | | | | | | Phone: | [phone] | | | | | | [phone] | | | | | | | Fax: | | | | | | | [phone] | | +--------+--------+ + + + + Encounter Details +--------+---------+ + + + | Date | Type | Department | Care Team | Description | +--------+---------+ + + + | 10/18/ | Office | [facility] | Ulysses Dsouza MD | Vertigo of central | | 2015 | Visit | OTOLARYNGOLOGY [address] | [address] | origin, unspecified | | | | [address] | [address] [place], | laterality (Primary | | | | [place], [place] | [place] [address] | Dx) | | | | [address] | [phone] | | | | | [phone] | | | +--------+---------+ + + + [...] MD - 10/18/2014 10:50 AM PDT [facility] OTOLARYNGOLOGY [address] [facility] [address] OFFICE NOTE ULYSSES DSOUZA MD Patient: BELINDA MEEHAN Admitting: MR #: [id number] LOC: PT TYPE: Adm Date: 10/18/2014 : [...] 10/18/2014 10:50:30 Transcribed on 10/18/2014 11:06:48 by [facility] job# [id number] Confirmation #: [id number] signed by Ulysses Dsouza MD at 10/18/2014 12:48 PM PDT Ulysses Dsouza MD - 10/18/2014 10:45 AM PDTSee dictation # [id number] signed by Ulysses Dsouza MD at 10/18/2014 [...] | | | | | [place] [address] | | | | | | [phone] | | | | | | | | +--------+ + + + + | 12/20/ | Office | Audiology | Elisabet Munson MS | | | 2019 | Visit | | [facility] [address] | | | | | | [place] [address] [place] | | | | | | [place] [address] | | | | | | [phone] | | | | | | | | +--------+ + + + + | 12/20/ | Office | Otolaryngology | Ulysses Dsouza MD | | | 2020 | Visit | | [address] | | | | | | [address] [place], | | | | | | [place] [address] | | | | | | [phone] | | | | | | | [...]
--- OUTSIDE RECORDS SUMMARY | ~2019-10-16 | XMS | Encounter Summary ---
Demographics + + + | Address | [address] | | | [place] [address] | + + + | Home Phone [...] Team Providers + +------+ + | Care Emt/Paramedic Name | Role | Phone | + +------+ + | Maria Esther Cintron MD | PCP | | + +------+ + Encounter Details +--------+ + + + + | Date | Type | Department | Care Team | Description | +--------+ + + + + | 08/26/ | Telephone | Dig[facility]ive Health | Chris Padgett, | | | 2010 | | [place] [address] | [address] [facility] | | | | | Bethanie Mailcode: CH4S | [address] | | | | | [facility] | [place], [place] | | | | | and Healing, | [address] | | | | | Building , 6th | [phone] | | | | | Floor [place], [place] | | | | | | [address] | | | | | | [phone] | | | +--------+ + + + [...]
--- OUTSIDE RECORDS SUMMARY | ~2019-10-16 | XMS | Encounter Summary ---
Demographics + + + | Address | [address] | | | [place] [address] | + + + | Home Phone [...] Team Providers + +------+ + | Care Rip And Groove Machine Operator Name | Role | Phone [...] as of this encounter Progress Notes Interface, Asset Protection Detective In - 01/12/2005 12:26 AM PDT [id number] [facility] Date: 07/25/2004 Clinic: Rheumatology [...] weight that she has lost. At the [employer], a study was presented [...] 6 months. Caitlin Rivera M.S., F.N.P. / [id number] / [id number] / [id number] / [id number] cc: Pedrito Gutierrez M.D. [address] [facility] [place] [address] Electronically signed by Caitlin Rivera 07-31-2004 12:02:37 PM documented i n this encounter Plan of Treatment Not on filedocumented as of this encounter Visit Diagnoses Not on filedocumented in this encounter"
--- OUTSIDE RECORDS SUMMARY | ~2019-10-16 | XMS | Encounter Summary ---
Demographics + + + | Address | [address] | | | [place] [address] | + + + | Home Phone [...] Providers + +------+ + | Care Dry Chain Operator Name | Role | Phone | [...] | | | | [place], | [address] | | | | | | [place] | Phone: | | | | | | [address] | [phone] | | | | | | Phone: | Fax: | | | | | | [phone] | [phone] | | | | | | Fax: | | | | | | | [phone] | | +--------+ + + + + + Encounter Details +--------+---------+ + + + | Date | Type | Department | Care Team | Description | +--------+---------+ + + + | 11/16/ | Office | [facility] | Alanis, | Diarrhea, | | 2017 | Visit | GASTROENTEROLOGY | MD Petrona | unspecified type | | | | [address] | [address] [facility] | (Primary Dx); | | | | [address] [place], [place] | [place] [address] | Chronic diarrhea; | | | | [address] | [phone] | S/P gastric bypass; | | | | [phone] | | Gastroesophageal | | | | | Luther Brito MD | reflux disease, | | | | | [address] | esophagitis presence | | | | | [place], [place] | not specified; | | | | | [address] | History of gastric | | | | | [phone] | ulcer; Abdominal | | | | | | pain, unspecified | | | | | | abdominal location; | | | | | | Narcotic dependence | | | | | | ([facility]); Obesity (BMI | | | | | [...] ordered and patient will complet e at [facility] in [place], orders were faxed; scheduled for egd/colon prop on 12/[address] Brito; advised to hold PPI day of procedure, she agreed. 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 documented in this encounter Plan of Treatment [...] | | | | | [place], [place] [address] | | | | | | [phone] | | | | | | | | +--------+ + + + + | 12/20/ | Office | Audiology | Elisabet Munson MS | | | 2019 | Visit | | [facility] [address] | | | | | [address] [place] | | | | | | [place] [address] | | | | | | [phone] | | | | | | | | +--------+ + + + + | 12/20/ | Office | Otolaryngology | Ulysses Genao MD | | | 2019 | Visit | | [address] | | | | | | [address] [place], | | | | | | [place] [address] | | | | | | [phone] | | | | | | | [...]
--- OUTSIDE RECORDS SUMMARY | ~2019-10-16 | XMS | Encounter Summary ---
Demographics + + + | Address | [address] | | | [place] [address] | + + + | Home Phone [...] Team Providers + +------+ + | Care Recycling Or Rubbish Collector Name | Role | Phone | [...] | | | Metabolism | bypass | [address] | [address] | | | | | Hypovitamino | [address], | Ave | | | | | sis D [address] | [address] | [place], [place] | | | | | nutritional | [place], [place] | [address] | | | | | deficiency | [address] | Phone: | | | | | Other | Phone: | [phone] | | | | | protein-jose manuel | [phone] | Fax: | | | | | nick | Fax: | [phone] | | | | | malnutrition | [phone] | | | | | | Weight | | | | | | | gain | | | | | | | Procedures | | | | | | | CONSULT TO | | | | | | | ENDO | | | | | | | [address] | | | +--------+--------+ + + + [...] | | | [facility] | [place], [place] | (Primary Dx); | | | | [address] | [address] | Metabolic syndrome X | | | | [address] | [phone] | 250.80; Essential | | | | [facility] | | hypertension 401.9; | | | | Physician's | | Unstable balance | | | | Pavilion [place], | | | | | | [place] [address] | | | | | | [phone] | | | +--------+---------+ + + + [...] Hives Mainly in the legs Clindamycin Codeine Gfsbxmm-Qlzwfcywds-Sdu-Caff Balance problems Fioricet W/Codeine (Vtasksremv-Nlnymhhbef-Yas-Cod) Keflex (Cephalexin) Morphine IM ( only in [facility]) made gut pain worse 08/27/06: [...] U/L 41 ANION GAP 8 VITAMIN B12, [id number] pg/ml >2000 (H) HEMOGLOBIN A1C <=5.6 % [...] SERUM 15.0-85.0 pg/ml 222.9 (H) VITAMIN B12, [id number] pg/ml > 2000 HEMOGLOBIN A1C <=5.6 % [...] home vi a a long drive to [place]. She needs further evaluation of her right hip and ROLLER HAND. This c an be most easily accomplished [...] | + +--------+ + + + | [place] COLLECTION | Routin | 08/09/2013 | IGT [...] MARQUAM | [address] | [place], [place] | | | [facility] [place]ARE | [address] | [address] | | | TESTS | | | [...] VERONICA | [address] | [place], [place] | | | [facility] | [address] | [address] | | | TESTS | | | [...]
--- OUTSIDE RECORDS SUMMARY | ~2019-10-16 | XMS | Encounter Summary ---
Demographics + + + | Address | [address] | | | [place] [address] | + + + | Home Phone [...] Providers + +------+ + | Care Medical Practice Manager Name | Role | Phone [...] | | | | [address] | [address] | | | | | | [place], | Phone: | | | | | | [place] | [phone] | | | | | | [address] | | | | | | | Phone: | | | | | | | [phone] | | | | | | | Fax: | | | | | | | [phone] | | +--------+ + + + + [...] [place] | Dx) | | | | [place] [address] | [place] [address] | | | | | [phone] | [phone] | | | | | | | [...] | | | | | [place] [address] | | | | | | [phone] | | | | | | | | +--------+ + + + + | 12/20/ | Office | Audiology | Elisabet Munson MS | | | 2019 | Visit | | [address] | | | | | | [address] [place] | | | | | | [place] [address] | | | | | | [phone] | | | | | | | | +--------+ + + + + | 12/20/ | Office | Otolaryngology | Ulysses Genao MD | | | 2020 | Visit | | [address] [facility] | | | | | | [address] [place], | | | | | | [place] [address] | | | | | | [phone] | | | | | | | | +--------+ + + + + + + +--------+ + + | Name | Type | Priori | Associated Diagnoses | Order Schedule | | | | ty | | | + + +--------+ + + | Com[place] | Outpatient | Routin | Multiple food [...]
--- OUTSIDE RECORDS SUMMARY | ~2019-10-16 | XMS | Encounter Summary ---
Demographics + + + | Address | [address] | | | [place] [address] | + + + | Home Phone [...] Team Providers + +------+ + | Care Groundman/Lineman Name | Role | Phone | + [...] | | | | [address] Physician's | [place], [place] | | | | | [address] | [address] | | | | | [place], [place] | [phone] | | | | | [address] | | | | | | [phone] | | | +--------+ + + + [...] | + + + + + | [facility] DEPARTMENT OF | [address] | [place] [address] | | | PATHOLOGY | [address] | | | + + + + + | [facility] DEPARTMENT OF | [address] | [place] [address] | | | PATHOLOGY | [address] [...] + + + + + | [facility] DEPARTMENT OF | [facility] | [place] [address] | | | PATHOLOGY | [address] | | | + + + + + | [facility] DEPARTMENT OF | [facility] | [place] [address] | | | PATHOLOGY | [address] [...] + + + + + | [facility] DEPARTMENT OF | [address] | [place] [address] | | | PATHOLOGY | [address] | | | + + + + + | [facility] DEPARTMENT OF | [address] [facility] | [place] [address] | | | PATHOLOGY | [address] [...] + + + + + | [facility] DEPARTMENT OF | [address] | [place], [place] [address] | | | PATHOLOGY | [address] | | | + + + + + | [facility] DEPARTMENT OF | [address] | [place] [address] | | | PATHOLOGY | [address] [facility] | [address] | [place] [address] | | | PATHOLOGY | [address] | | | + + + + + | [facility] | [address] | [place] [address] | | | PATHOLOGY | [address] | | | + + + + + documented in this encounter Visit Diagnoses Not on filedocumented in this encounter"
--- OUTSIDE RECORDS SUMMARY | ~2019-10-16 | XMS | Encounter Summary ---
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 2. Continue with Skyforest 10/325 1 tablet as needed for activity [...] able to see Dr Gutierrez yet b tn does have and appointment next week to [...] ev eduardo 72 hours. 2. Continue with Skyforest 10/325 1 tablet as needed for activity related pain NTE 3 per day. 3. Continue with pain psychology and physical therapy. 4. Follow up in two weeks to review medication management 5. Keep neurology evaluation as able with insurance aurthorization.- migraine headache eval uation 6. PCP to assess LE edema/swelling. DELFINA MOLINA [facility] Mail code CH 4P [facility] and [address] [address] Ailyn Foster 09/10/19 07 12:20 [...]
--- OUTSIDE RECORDS SUMMARY | ~2019-10-16 | XMS | Encounter Summary ---
Demographics + + + | Address | [address] | | | [place] [address] | + + + | Home Phone [...] Providers + +------+ + | Care Assistant Hvac Mechanic Name | Role | Phone | + +------+ + | Sulaiman Carrera MD | PCP | | + +------+ + Encounter Details +--------+ + + + + | Date | Type | Department | Care Team | Description | +--------+ + + + + | 02/08/ | Telephone | Dig[facility]ive Health | Chris Padgett, | | | 2008 | | [facility] [address] | [address] [facility] | | | | | Bethanie Mailcode: CH4S | [address] | | | | | Center for Health | [place], [place] | | | | | and Healing, | [address] | | | | | [place] [address], 6th | [phone] | | | | | Floor [place], [place] | | | | | | [address] | | | | | | [phone] | | | +--------+ + + + [...]
--- OUTSIDE RECORDS SUMMARY | ~2019-10-16 | XMS | Encounter Summary ---
Demographics + + + | Address | [address] | | | [place] [address] | + + + | Home Phone [...] Providers + +------+ + | Care Test Man Name | Role | Phone | [...] Abdominal pain | | 2005 | | [place] [address] | | | | | | [address] | | | | | | Mailcode: [id number] | | | | | | Physician's [place] | | | | | | [place], [place] | | | | | | [address] | | | | | | [phone] | | | +--------+ + + + [...]
--- OUTSIDE RECORDS SUMMARY | ~2019-10-16 | XMS | Encounter Summary ---
Demographics + + + | Address | [address] | | | [place] [address] | + + + | Home Phone [...] Providers + +------+ + | Care Final Block Press Operator Name | Role | Phone [...] + + | 08/17/ | Telephone | [facility] INTERNAL | Alanis, | Other | | 2020 | | MEDICINE [address] [place] [address] | MD [place] | | | | | [facility] | [address] [place] [address] | | | | | [place] [address] | [place] [address] | | | | | [phone] | [phone] | | | | | | | [...] | | | | | [place] [address] | | | | | | [phone] | | | | | | | | +--------+ + + + + | 12/20/ | Office | Audiology | Elisabet Munson MS | | 2019 | Visit | | [facility] [address] | | | | | | [address] [place] | | | | | | [place] [address] | | | | | | [phone] | | | | | | | | +--------+ + + + + | 12/20/ | Office | Otolaryngology | Ulysses Genao MD | | | 2020 | Visit | | [address] [facility] | | | | | | [address] [place], | | | | | | [place] [address] | | | | | | [phone] | | | | | | | | +--------+ + + + + documented as of this encounter Visit Diagnoses Not on filedocumented in this encounter"
--- OUTSIDE RECORDS SUMMARY | ~2019-10-16 | XMS | Encounter Summary ---
Demographics + + + | Address | [address] | | | [place] [address] | + + + | Home Phone [...] Providers + +------+ + | Care Director Biostatistics Name | Role | Phone | + [...] + + | 12/21/ | Office | [facility] Comprehensive | Ines Molinaanne, | Left Knee Pain; DJD | | 2006 | Visit | Pain Center at | ANP | (Degenerative Joint | | | | 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 female [facility] Comprehensive Pain Center Return Visit Chief [...] y the fentanyl is not sticking leaving Belinad cisneros on treatment since Thursday12/19/06 she d [...] Simons. We reviewed materials risk notice and [facility] opioid agreement. A ll questions [...] management and reduce opioid need. DELFINA MOLINA [facility] Mail code CH 4P [facility] and [facility] [address] [facility] [address] Ailyn Foster 12/22/19 12:51 PM PDTCMA [...] | + + | Opioid dependence, continuous ([facility]) Opioid type dependence, continuous | [...]
--- OUTSIDE RECORDS SUMMARY | ~2019-10-16 | XMS | Encounter Summary ---
Demographics + + + | Address | [address] | | | [place] [address] | + + + | Home Phone [...] Providers + +------+ + | Care Cnc Set Up Operator Name | Role | [...] + + | 12/20/ | Office | [facility] | Ulysses Genao MD | Meniere's disease of | | 2019 | Visit | OTOLARYNGOLOGY [address] | [address] | right ear (Primary | | | | [address] | [address] [place], | Dx); Benign | | | | [place] | [place] [address] | paroxysmal | | | | [address] | [phone] | positional vertigo, | | | | [phone] | | unspecified | | | | [...] tympanog ainsley were A tympanograms. Her speech process inspector threshold is 30 dB in the right [...] sched uled for a Tayler maneuver in [place]. Extended time was spent with the patient.Electronic [...] | | | | | | [address] [place] [address] [place] | | | | | | [place] [address] | | | | | | [phone] | | | | | | | | +--------+ + + + + | 12/20/ | Office | Audiology | Elisabet Munson MS | | | 2019 | Visit | | [facility] [address] | | | | [address] [place] | | | | | | [place], [place] [address] | | | | | | [phone] | | | | | | | | +--------+ + + + + | 12/20/ | Office | Otolaryngology | Ulysses Genao MD | | | 2019 | Visit | | [address] | | | | | | [address] [place], | | | | | | [place] [address] | | | | | | [phone] | | | | | | | | +--------+ + + + + documented as of this encounter Visit Diagnoses + + | Diagnosis | + + | Meniere's disease of right ear - Primary Meniere's disease, unspecified | + + | Benign paroxysmal positional vertigo, unspecified laterality | + + documented in this encounter
--- OUTSIDE RECORDS SUMMARY | ~2019-10-16 | XMS | Encounter Summary ---
Demographics + + + | Address | [address] | | | [place] [address] | + + + | Home Phone [...] Providers + +------+ + | Care Liquor Merchant Name | Role | Phone | + +------+ + | Pedrito Gutierrez MD | PCP | | + +------+ + Encounter Details +--------+---------+ + + + | Date | Type | Department | Care Team | Description | +--------+---------+ + + + | 02/01/ | Office | Dig[facility]ive Health | Chris Padgett, | Status Post | | 2006 | Visit | [place] [address] | [address] | Bariatric Surgery; | | | | Ave Mailcode: CH4S | [address] | Follow-Up | | | | Center for [facility] | [place], [place] | Examination | | | | and Healing, | [address] | Following Surgery | | | | Building | [phone] | | | | | Floor [place], [place] | | | | | | [address] | | | | | | [phone] | | | +--------+---------+ + + + [...] history of intermittent abdominal pain [facility] 3 mo f/u evaluation [...]
--- OUTSIDE RECORDS SUMMARY | ~2019-10-16 | XMS | Encounter Summary ---
Demographics + + + | Address | [address] | | | [place] [address] | + + + | Home Phone [...] Providers + +------+ + | Care Die Cutting Machine Operator Name | Role [...] Lab findings, | | 2006 | | [place] [address] | [address] | teaching, guidance, | | | | Ave Mailcode: CH4S | [address] | and counseling | | | | [facility] | [place], [place] | | | | | and Healing, | [address] | | | | | [facility] | [phone] | | | | | [place], [place] | | | | | | [address] | | | | | | [phone] | | | +--------+ + + + [...]
--- OUTSIDE RECORDS SUMMARY | ~2019-10-16 | XMS | Encounter Summary ---
Demographics + + + | Address | [address] | | | [place] [address] | + + + | Home Phone [...] Team Providers + +------+ + | Care Dials Inspector Name | Role | Phone | [...] [address] | | | | | | [place], [place] | | | | | | [address] | | | | | | [phone] | | | +--------+ + + + [...] DEPARTMENT OF | [address] | [place] [address] | | | PATHOLOGY | [address] | | | + + + + + | [facility] DEPARTMENT | [address] | [place] [address] | | | PATHOLOGY | [address] | | | + + + + + PROTHROMBIN TIME (03/10/2006 2:42 PM PDT) + + + + + + | Component | Value | Ref Range | Performed | Pathologist | | | | | At | Signature | + + + + + + | INR | 1.01Comment: | 0.90 - 1.20 INR | [facility] | | | | PT INR [...] + + + + | [facility] | [address] [place] [address] | [place] [address] | | | PATHOLOGY | [address] | | | + + + + + | [facility] | [address] [facility] | [place] [address] | | | PATHOLOGY | [address] [...] DEPARTMENT OF | [address] | [place] [address] | | | PATHOLOGY | [address] | | | + + + + + | [facility] DEPARTMENT OF | [address] | [place] [address] | | | PATHOLOGY | [address] [...] + + | [facility] DEPARTMENT | [address] [facility] | [place] [address] | | | PATHOLOGY | [address] | | | + + + + + | [facility] | [address] [facility] | [place] [address] | | | PATHOLOGY | [address] [...] + + + | [facility] | [address] | [place] [address] | | | LABORATORY | | | [...] | | | | | performed at [place] | | | | | | [facility] [...] + + + | [facility] | [address] | [place] [address] | | | LABORATORY | | | | + + + + + documented in this encounter Visit Diagnoses + + | Diagnosis | + + | Chronic abdominal pain Abdominal pain, unspecified site | + + | Iron deficiency Other disorders of iron metabolism | + + documented in this encounter"
--- OUTSIDE RECORDS SUMMARY | ~2019-10-16 | XMS | Encounter Summary ---
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 2. Continue with Gambier 10/325 1 tablet as needed for activity [...] able to see Dr Gutierrez yet b ri does have and appointment next week to [...] ev eduardo 72 hours. 2. Continue with [place]ier 10/325 1 tablet as needed for activity related pain NTE 3 per day. 3. Continue with pain psychology and physical therapy. 4. Follow up in two weeks to review medication management 5. Keep neurology evaluation as able with insurance aurthorization.- migraine headache eval uation 6. PCP to assess LE edema/swelling. DELFINA MOLINA [facility] Mail code CH 4P [facility] and [address] [address] Ailyn Foster 09/10/19 07 12:20 [...]
--- OUTSIDE RECORDS SUMMARY | ~2019-10-16 | XMS | Encounter Summary ---
Demographics + + + | Address | [address] | | | [place] [address] | + + + | Home Phone [...] Providers + +------+ + | Care Medical Receptionist Name | Role | Phone | [...] + + | 08/23/ | Telephone | [facility] INTERNAL | Alanis, | Medication Follow-up | | 2019 | | [address] | MD [place]rona | (Prior | | | | [facility] | [address] [place] [address] | Authorization | | | | [place] [address] | [place] [address] | needed) | | | | [phone] | [phone] | | | | | | | [...] | | | | | [place] [address] | | | | | | [phone] | | | | | | | | +--------+ + + + + | 12/20/ | Office | Audiology | Elisabet Munson MS | | | 2019 | Visit | | [facility] [address] | | | | [address] [place] | | | | | | [place] [address] | | | | | | [phone] | | | | | | | | +--------+ + + + + | 12/20/ | Office | Otolaryngology | Ulysses Genao MD | | | 2019 | Visit | | [address] | | | | | | [address] [place], | | | | | | [place] [address] | | | | | | [phone] | | | | | | | | +--------+ + + + + documented as of this encounter Visit Diagnoses Not on filedocumented in this encounter"
--- OUTSIDE RECORDS SUMMARY | ~2019-10-16 | XMS | Encounter Summary ---
Demographics + + + | Address | [address] | | | [place] [address] [...] Providers + +------+ + | Care Vending Machine Refiller Name | Role | Phone | + [...] | | | | | elsewhere | [place], [place] | [place], [place] | | | | | classified | [address] | [address] | | | | | Procedures | | Phone: | | | | | [place] | | [phone] | | | | | PSYCHOTHERPY | | Fax: | | | | | , OFFICE | | [phone] | | | | | (23-70) | | | +--------+--------+ + + + + Encounter Details +--------+---------+ + + + | Date | Type | Department | Care Team | Description | +--------+---------+ + + + | 07/15/ | Office | [facility] at [facility] | Lukasz Charles, | Major Depressive | | 2006 | Visit | [address] | PhD [address] | Disorder, Recurrent | | | | Mailcode: CH15P | [place], [place] | Episode, Moderate | | | | [facility] | [address] | ([facility]); Cervical | | | | and Healing, | [phone] | Spondylosis without | | | | Building | | Myelopathy; Migraine | | | | Floor [place], [place] | | Headache; | | | | [address] | | Adjustment Disorder | | | | [phone] | | with Anxiety | +--------+---------+ + [...] She appears to have good insight. Diagnosis: [place] I: 1. (296.32) Major depressive disorder, recurrent, moderate. 2. (309.24) Adjustment disorder with anxiety. 3. 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 [place] II: Deferred [place] III: abdominal pain, migraine headache, low back pain. [place] IV: low finances [place] V: GAF 50 Plan: Return in 2 weeks. Check relaxation and activity. Check mood. Continue cognitive/behavio ral therapy. Total time spent with patient was approximately 50 minutes. LUKASZ CHARLES PHD [facility] [address] [place] [address] [facility], [address] [place] [address] documented in this [facility] Plan of Treatment + + +--------+ [...] | | ([facility]) Cervical | | | | | | Spondylosis without | | | | | | Myelopathy Migraine | | | | | | Headache | | | | | | Adjustment Disorder | | | | | | with Anxiety | | + + +--------+ + + | [place] BIOFEEDBACK | Procedures | Routin | Cervical [...]
--- OUTSIDE RECORDS SUMMARY | ~2019-10-16 | XMS | Encounter Summary ---
Demographics + + + | Address | [address] | | | [place] [address] | + + + | Home Phone [...] 2007 | Only | [address] | [phone] | | | | | Rd Mailcode: RPB07 | | | | | | [place], [place] | | | | | | [address] | | | | | | [phone] | | | +--------+ + + + [...] + | [facility] DEPARTMENT OF | [facility] | [place] [address] | | | PATHOLOGY | [address] | | | + + + + + | [place] DEPARTMENT OF | [facility] | [place] [address] | | | PATHOLOGY | [address] | | | + + + + + documented in this encounter Visit Diagnoses Not on filedocumented in this encounter"
--- OUTSIDE RECORDS SUMMARY | ~2019-10-16 | XMS | Encounter Summary ---
Demographics + + + | Address | [address] | | | [place] [address] | + + + | Home Phone [...] Providers + +------+ + | Care Medical Assistant Supervisor Name | Role | Phone | [...] + + | 05/16/ | Office | [facility] | Alanis, | Chronic diarrhea | | 2019 | Visit | MEDICINE [address] [place] [address] | MD Petrona | (Primary Dx); | | | | [facility] | [address] [place] [address] | History of Zoe-en-Y | | | | [place] [address] | [place] [address] | gastric bypass; | | | | [phone] | [phone] | Fibromyalgia; Fatty | | | | [...] Procedure: COLONOSCOPY; Surgeon: Luther Brito MD; Location: [facility] MEDICAL PROCEDURE UNIT DILATION AND CURETTAGE OF UTERUS ELBOW SURGERY FINGER TRIGGER RELEASE 2003 FINGER TRIGGER RELEASE 2010 GASTRIC BYPASS SURGERY 2004 HYSTERECTOMY 05/14/1980 JOINT REPLACEMENT Bilateral 2007 2008 KNEE ARTHROSCOPY 2005 LAPAROSCOPY 01/27/2015 LAPAROTOMY 2008 ROTATOR CUFF REPAIR 2005 SPINE SURGERY TONSILLECTOMY 1964 UPPER GASTROINTESTINAL ENDOSCOPY N/A 12/18/2017 Procedure: EGD; Surgeon: Luther Brito MD; Location: [facility] MEDICAL PROCEDURE UNIT CURRENT MEDICATIONS [...] 1,000 mcg 1,000 mcg Intramuscular Q30 Days [facility] Maddie Thapa MD 1,000 mcg at 04/18/19 0955 ALLERGIES Allergies Allergen Reactions Ensure Diarrhea Food Diarrhea Lactose Mwdekfiwfc-Xbk-Jsgu-Codeine Other (See Comments) Balance problems Codeine Sulfate Nausea Only Food Allergy Formula Diarrhea Ensure Levofloxacin Hives, Itching and Rash Butalbital Ropinirole Amitriptyline Hcl Other (See Comments) Confused and questionable for seizures Isvtvcohjj-Mxte-Yhtysckh Rash duplicate Vestrwcezr-Nmbu-Vnyucmvj Hives and Rash Cephalexin Hives Ciprofloxacin Hives [...] 1. Parts of this documentwere created using [employer] speech recognition software. As a resu lt, [...] | | | | | [place] [address] | | | | | | [phone] | | | | | | | | +--------+ + + + + | 12/20/ | Office | Audiology | DariokeylaElisabet MS | | | 2019 | Visit | | [facility] [address] | | | [address] [place] | | | | | | [place] [address] | | | | | | [phone] | | | | | | | | +--------+ + + + + | 12/20/ | Office | Otolaryngology | Ulysses Genao MD | | | 2019 | Visit | | [address] | | | | | | [address] [place], | | | | | | [place] [address] | | | | | | [phone] | | | | | | | [...]
--- OUTSIDE RECORDS SUMMARY | ~2019-10-16 | XMS | Encounter Summary ---
Demographics + + + | Address | [address] | | | [place] [address] | + + + | Home Phone [...] Providers + +------+ + | Care Bolt Man Name | Role | Phone | [...] + + | 03/29/ | Telephone | [facility] | Alanis, | Medication Prior | | 2017 | | MEDICINE [address] [place] [address] | MD Petrona | Authorization | | | | [facility] | [address] [place] [address] | (Gabapentin ) | | | | [place] [address] | [place] [address] | | | | | [phone] | [phone] | | | | | | | [...] | | | | | [place] [address] | | | | | | [phone] | | | | | | | | +--------+ + + + + | 12/20/ | Office | Audiology | Elisabet Munson MS | | | 2019 | Visit | | [facility] [address] [place] | | | | | | [place] [address] | | | | | | [phone] | | | | | | | | +--------+ + + + + | 12/20/ | Office | Otolaryngology | Ulysses Genao MD | | | 2019 | Visit | | [address] | | | | | | [address] [place], | | | | | | [place] [address] | | | | | | [phone] | | | | | | | | +--------+ + + + + documented as of this encounter Visit Diagnoses Not on filedocumented in this encounter"
--- OUTSIDE RECORDS SUMMARY | ~2019-10-16 | XMS | Encounter Summary ---
Demographics + + + | Address | [address] | | | [place] [address] | + + + | Home Phone [...] +------+ + | Care Residential Real Estate Assistant Name | Role | Phone | [...] | | sciatica | [address] | [place] [address] | | | | | Generalized | [place], | Phone: | | | | | osteoarthrit | [place] | [phone] | | | | | is | [address] | Fax: | | | | | | Phone: | [phone] | | | | | | [phone] | | | | | | | Fax: | | | | | | | [phone] | | +--------+ + + + + + Reason for Visit + + + | Reason | Comments | + + + | Medication Problem | | + + + Encounter Details +--------+--------+ + + + | Date | Type | Department | Care Team | Description | +--------+--------+ + + + | 06/05/ | Refill | [facility] | Alanis, | Medication Problem | | 2016 | | MEDICINE [address] [place] [address] | MD Petrona | | | | | [facility] | [address] [place] [address] | | | | | [place] [address] | [place] [address] | | | | | [phone] | [phone] | | | | | | | [...] | | | | | [place] [address] | | | | | | [phone] | | | | | | | | +--------+ + + + + | 12/20/ | Office | Audiology | Elisabet Munson MS | | | 2019 | Visit | | [facility] [address] | | | [address] [place] | | | | | | [place] [address] | | | | | | [phone] | | | | | | | | +--------+ + + + + | 12/20/ | Office | Otolaryngology | Ulysses Genao MD | | | 2019 | Visit | | [address] | | | | | | [address] [place], | | | | | | [place] [address] | | | | | | [phone] | | | | | | | [...]
--- OUTSIDE RECORDS SUMMARY | ~2019-10-16 | XMS | Encounter Summary ---
Demographics + + + | Address | [address] | | | [place] [address] | + + + | Home Phone [...] Team Providers + +------+ + | Care Contestant Coordinator Name | Role | Phone | [...] + + | 11/23/ | Office | [facility] [...] Encounter for | | | | Floor [place], [place] | | Long-Term (Current) | | | | [address] | | Use of Opioids; | | | | [phone] | | Major Depressive | | | | | | Disorder, Recurrent | | | | | | Episode, Moderate | | | | | | ([facility]); Adjustment | | | | | | [...] is a 47 y[address] [facility] Comprehensive [...] drawing has be completed, which I reviewed. [facility] Brief Pain Inventory: Right Now: 9 [...] Result Impression NAME: BELINDA MEEHAN MR #: [id number] DATE OF EXAM: [id number] PHYSICIAN: EMMA ROJAS [...] DISK BULGE. Transcribed By: Armaan Mata : [id number] : 1442 Approved By: Radiologist: Physical Examination: [...] seeing Nathalia Arora PT here at the [facility] Pain [...] vs Hernia. 6. PT here at the [facility] available 7. Repeat TESI as needed. DELFINA MOLINA [facility] Mail code CH 4P [facility] Health and [address] [address] JasenTy montilla - 9:12 AM [...]
--- OUTSIDE RECORDS SUMMARY | ~2019-10-16 | XMS | Encounter Summary ---
Demographics + + + | Address | [address] | | | [place] [address] | + + + | Home Phone [...] Providers + +------+ + | Care Hr Recruiter Name | Role | Phone | [...] clinic) | | 2019 | | MEDICINE [address] [place] [address] | MD Petrona | | | | | [facility] | [address] [place] [address] | | | | | [place] [address] | [place] [address] | | | | | [phone] | [phone] | | | | | | | [...] | | | | [address] [facility] | | | | | | [place] [address] | | | | | | [phone] | | | | | | | | +--------+ + + + + | 12/20/ | Office | Audiology | Elisabet Munson MS | | | 2019 | Visit | | [facility] [address] | | [address] [place] | | | | | | [place], [place] [address] | | | | | | [phone] | | | | | | | | +--------+ + + + + | 12/20/ | Office | Otolaryngology | Ulysses Genao MD | | | 2019 | Visit | | [address] | | | | | | [address] [place], | | | | | | [place] [address] | | | | | | [phone] | | | | | | | | +--------+ + + + + documented as of this encounter Visit Diagnoses Not on filedocumented in this encounter"
--- OUTSIDE RECORDS SUMMARY | ~2019-10-16 | XMS | Encounter Summary ---
Demographics + + + | Address | [address] | | | [place] [address] | + + + | Home Phone [...] Providers + +------+ + | Care Bi Architect Name | Role | Phone | [...] + | 06/30/ | Refill | [facility] | Alanis, | Medication Refill | | 2017 | | MEDICINE [address] [place] [address] | MD Petrona | | | | | [facility] | [address] [place] [address] | | | | | [place] [address] | [place] [address] | | | | | [phone] | [phone] | | | | | | | [...] | | | | | [place] [address] | | | | | | [phone] | | | | | | | | +--------+ + + + + | 12/20/ | Office | Audiology | DarioElisabet ramires MS | | | 2019 | Visit | | [facility] [address] [place] | | | | | | [place], [place] [address] | | | | | | [phone] | | | | | | | | +--------+ + + + + | 12/20/ | Office | Otolaryngology | Ulysses Genao MD | | | 2019 | Visit | | [address] | | | | | | [address] [place], | | | | | | [place] [address] | | | | | | [phone] | | | | | | | | +--------+ + + + + documented as of this encounter Visit Diagnoses Not on filedocumented in this encounter"
--- OUTSIDE RECORDS SUMMARY | ~2019-10-16 | XMS | Encounter Summary ---
Demographics + + + | Address | [address] | | | [place] [address] [...] Team Providers + +------+ + | Care Tabber Name | Role | Phone | + [...] + | 02/15/ | Refill | [facility] | Alanis, | Medication Refill | | 2018 | | MEDICINE [address] [place] [address] | MD Petrona | | | | | [facility] | [address] [place] [address] | | | | | [place] [address] | [place] [address] | | | | | [phone] | [phone] | | | | | | | [...] | | | | | [place] [address] | | | | | | [phone] | | | | | | | | +--------+ + + + + | 12/20/ | Office | Audiology | DarioElisabet ramires MS | | | 2019 | Visit | | [facility] [address] | [address] [place] | | | | | | [place], [place] [address] | | | | | | [phone] | | | | | | | | +--------+ + + + + | 12/20/ | Office | Otolaryngology | Ulysses Genao MD | | | 2019 | Visit | | [address] | | | | | | [address] [place], | | | | | | [place] [address] | | | | | | [phone] | | | | | | | | +--------+ + + + + documented as of this encounter Visit Diagnoses Not on filedocumented in this encounter"
--- OUTSIDE RECORDS SUMMARY | ~2019-10-16 | XMS | Encounter Summary ---
Demographics + + + | Address | [address] | | | [place] [address] | + + + | Home Phone [...] Team Providers + +------+ + | Care Compounding Assistant Name | Role | Phone | [...] | | | | | hemorrhoid | [place], [place] | [address] | | | | | Rectal pain | [address] | [facility] | | | | | Procedures | | Rd [place], | | | | | CONSULT TO | | [place] | | | | | COLORECTAL | | [address] | | | | | SURGERY | | Phone: | | | | | | | [phone] | | | | | | | Fax: | | | | | | | [phone] | +--------+--------+ + + + + Encounter [...] | | | | Mailcode: Center | [place], [place] | | | | | [facility] and | [address] | | | | | [facility] 2 | [phone] | | | | | [place], [place] | | | | | | [address] | | | | | | [phone] | | | +--------+---------+ + + + [...] stool. She had a normal colonoscopy at [facility] in 2005 PMH: Past Medical History [...] 08/2007 right knee Hx lumbar fusion 05/2008 L5-S3rerckm with bone spur removals Hx appendectomy Hx [...] swelling Clarithromycin Hives Mainly in the legs Ujfuuie-poklsjezuu-yjz-caff Balance problems Amitriptyline Grand mal seizures SH: [...] + + +--------+ + + | [facility] | Procedures | Routin | Anal or Rectal | Ordered: 10/05/2008 | | ANOSCOPY | | e | Pain | | + + +--------+ + + documented as of this encounter Visit Diagnoses + + | Diagnosis | + + | Anal or rectal pain - Primary | + + documented in this encounter
--- OUTSIDE RECORDS SUMMARY | ~2019-10-16 | XMS | Encounter Summary ---
Demographics + + + | Address | [address] | | | [place] [address] [...] Providers + +------+ + | Care Electronic Engraver Name | Role | Phone | [...] | | | | Clinical Nutrition | [place], [place] | | | | | [address] | [address] | | | | | Loop Mailcode: OPC5 | [phone] | | | | | Outpatient Clinic | | | | | | [facility] | | | | | | [place] [address] | | | | | | [phone] | | | +--------+ + + + [...] + + + | [facility] | [address] | [place] [address] | | | LABORATORY | | | [...] | | [facility] | | | | | | Laboratories. | | | | + + + + + + + + | Specimen | + + | | + + + + + + + | Performing | Address | City/State/Zipcode | Phone Number | | Organization | | | | + + + + + | [facility] | [address] | [place] [address] | | | LABORATORY | | | [...] DEPARTMENT OF | [address] | [place] [address] | | | PATHOLOGY | [address] | | | + + + + + | [place] DEPARTMENT OF | [address] | [place] [address] | | | PATHOLOGY | [address] | | | + + + + + documented in this encounter Visit Diagnoses Not on filedocumented in this encounter"
--- OUTSIDE RECORDS SUMMARY | ~2019-10-16 | XMS | Encounter Summary ---
Demographics + + + | Address | [address] | | | [place] [address] | + + + | Home Phone [...] Providers + +------+ + | Care Software Asset Management Analyst Name | Role | [...] | Pain | Diagnoses | [place], | [place], | | | | Management | LBP (low | NIHARIKA Jean | Lukasz Rhodes, PhD | | | | | back pain) | [address] | [address] | | | | | [address]D | [address] | Ave | | | | | (degenerativ | [place], [place] | [place], [place] | | | | | e joint | [address] | [address] | | | | | disease) of | | Phone: | | | | | knee Knee | | [phone] | | | | | pain Major | | Fax: | | | | | depressive | | [phone] | | | | | disorder, | [...] 06/21/ | Office | [facility] at [facility] | Lukasz Charles, | Major Depressive | | 2008 | Visit | [address] | PhD [address] | Disorder, Recurrent | | | | Mailcode: CH15P | [place], [place] | Episode, Mild (HCC); | | | | [place] [facility] | [address] | LBP (Low Back | | | | and Healing, | [phone] | Pain); Migraine | | | | | | Headache | | | | Floor [place], [place] | | | | | | [address] | | | | | | [phone] | | | +--------+---------+ + + + [...] migraine specialist this week. She reported that [employer] has done some sewing and she found [...] benefit as she becomes more active. Diagnosis: [place] I: 1. (296.31) Major depressive disorder, recurrent, mild. 2. (309.24) Adjustment disorder with anxiety. 3. 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 [place] II: Deferred [place] III: abdominal pain, migraine headache, low back pain. [place] IV: low finances [place] V: GAF 55-60 Plan: return with next medical follow-up appointment. Check mood, pain, surgical recovery , relaxation, activity, distraction, eating. Ask about headache specialist, physical therap y. Continue cognitive/behavioral therapy. Total time spent with patient was approximately 45 minutes. LUKASZ CHARLES PHD [facility] [address] [facility], [address] [place] [address] documented in this en counter Plan of [...]
--- OUTSIDE RECORDS SUMMARY | ~2019-10-16 | XMS | Encounter Summary ---
Demographics + + + | Address | [address] | | | [place] [address] | + + + | Home Phone [...] | | | [facility] | [place], [place] | | | | | [address] | [address] | | | | | [address] | [phone] | | | | | [facility] | | | | | | Physician's | | | | | | Pavilion [place], | | | | | | [place] [address] | | | | | | [phone] | | | +--------+ + + + [...]
--- OUTSIDE RECORDS SUMMARY | ~2019-10-16 | XMS | Encounter Summary ---
Demographics + + + | Address | [address] | | | [place] [address] | + + + | Home Phone [...] Team Providers + +------+ + | Care Foreign Food Cook Specialty Name | Role | Phone | + +------+ + | Sulaiman Carrera MD | PCP | | + +------+ + Encounter Details +--------+ + + + + | Date | Type | Department | Care Team | Description | +--------+ + + + + | 06/12/ | Telephone | [facility] | Chris Padgett, | | | 2008 | | [place] [address] | [address] [facility] | | | | | Bethanie Mailcode: CH4S | [address] | | | | | Center [facility] | [place], [place] | | | | | and Healing, | [address] | | | | | [facility] 1, 6th | [phone] | | | | | Floor [place], [place] | | | | | | [address] | | | | | | [phone] | | | +--------+ + + + [...]
--- OUTSIDE RECORDS SUMMARY | ~2019-10-16 | XMS | Encounter Summary ---
Demographics + + + | Address | [address] | | | [place] [address] | + + + | Home Phone [...] Providers + +------+ + | Care Gravel Inspector Name | Role | Phone | [...] + + | 06/26/ | Telephone | [facility] | Alanis, | ER Follow-up | | 2017 | | MEDICINE [address] [place] [address] | MD Petrona | | | | | [employer] [place] | [address] [place] [address] | | | | | [place] [address] | [place] [address] | | | | | [phone] | [phone] | | | | | | | [...] | | | | | [place] [address] | | | | | | [phone] | | | | | | | | +--------+ + + + + | 12/20/ | Office | Audiology | Elisabet Munson MS | | | 2019 | Visit | | [facility] [address] | [address] [place] | | | | | | [place], [place] [address] | | | | | | [phone] | | | | | | | | +--------+ + + + + | 12/20/ | Office | Otolaryngology | Ulysses Genao MD | | | 2019 | Visit | | [address] | | | | | | [address] [place], | | | | | | [place] [address] | | | | | | [phone] | | | | | | | | +--------+ + + + + documented as of this encounter Visit Diagnoses Not on filedocumented in this encounter"
--- OUTSIDE RECORDS SUMMARY | ~2019-10-16 | XMS | Encounter Summary ---
Demographics + + + | Address | [address] | | | [place] [address] | + + + | Home Phone [...] Providers + +------+ + | Care Specialty Person Name | Role | Phone | [...] + | 02/22/ | Refill | [facility] | Alanis, | Medication Refill | | 2017 | | MEDICINE [address] [place] [address] | MD Petrona | | | | | [facility] | [address] [place] [address] | | | | | [place] [address] | [place] [address] | | | | | [phone] | [phone] | | | | | | | [...] | | | | | [place] [address] | | | | | | [phone] | | | | | | | | +--------+ + + + + | 12/20/ | Office | Audiology | DarioElisabet ramires MS | | | 2019 | Visit | | [facility] [address] | | [address] [place] | | | | | | [place], [place] [address] | | | | | | [phone] | | | | | | | | +--------+ + + + + | 12/20/ | Office | Otolaryngology | Ulysses Genao MD | | | 2019 | Visit | | [address] | | | | | | [address] [place], | | | | | | [place] [address] | | | | | | [phone] | | | | | | | | +--------+ + + + + documented as of this encounter Visit Diagnoses Not on filedocumented in this encounter"
--- OUTSIDE RECORDS SUMMARY | ~2019-10-16 | XMS | Encounter Summary ---
Demographics + + + | Address | [address] | | | [place] [address] | + + + | Home Phone [...] Providers + +------+ + | Care Clinical Resource Nurse Name | Role | Phone [...] + | 07/19/ | Refill | [facility] | Alanis, | Medication Refill | | 2019 | | MEDICINE [address] | MD Petrona | | | | | [facility] | [address] [place] [address] | | | | | [place] [address] | [place] [address] | | | | | [phone] | [phone] | | | | | | | [...] | | | | | [place] [address] | | | | | | [phone] | | | | | | | | +--------+ + + + + | 12/20/ | Office | Audiology | DarioElisabet ramires MS | | | 2019 | Visit | | [facility] [address] | | [address] [place] | | | | | | [place], [place] [address] | | | | | | [phone] | | | | | | | | +--------+ + + + + | 12/20/ | Office | Otolaryngology | Ulysses Genao MD | | | 2019 | Visit | | [address] | | | | | | [address] [place], | | | | | | [place] [address] | | | | | | [phone] | | | | | | | | +--------+ + + + + documented as of this encounter Visit Diagnoses Not on filedocumented in this encounter"
--- OUTSIDE RECORDS SUMMARY | ~2019-10-16 | XMS | Encounter Summary ---
Demographics + + + | Address | [address] | | | [place] [address] | + + + | Home Phone [...] Team Providers + +------+ + | Care Doorshaker Name | Role | Phone | + [...] | | | | FAMILY | Rd [place], | | | | | | MEDICINE | [place] | | | | | | [address] | [address] | | | | | | [place] | Phone: | | | | | | [place], | [phone] | | | | | | [place] [address] | Fax: | | | | | | Phone: | [phone] | | | | | | [phone] | | | | | | | Fax: | | | | | | | [phone] | | +--------+--------+ + + + + [...] | (Primary Dx) | | | | [facility] | [place], [place] | | | | | and Healing, | [address] | | | | | [facility] | [phone] | | | | | Floor [place], [place] | | | | | | [address] | | | | | | [phone] | | | +--------+---------+ + + + [...] surgery. She is being followe d with [facility] providers for metabolic syndrome and hypothyroidism - Dr. Meeks, emotional issue s - Dr. Lukasz Ogden, and her PCP in [place]. She has sx of stress urinary incontinence [...] treated. She would like a urology or REHABILITATION TECHNICIAN referral as appropriate. Labs ordered. See [...] [address] | | | | | | [place] [address] | | | | | | [phone]. | | | | | | Sincere [...] [facility] | [address] | [place], [place] | | | [facility] | | [address] | | + + + + + [...] | pg/mL | | | | | [facility]. | | | | + + + + + + + + | Specimen | + + | | + + + + + + + | Performing | Address | City/State/Zipcode | Phone Number | | Organization | | | | + + + + + | [facility] | [address] | [place] [address] | | | LABORATORY | | | [...] RLB ([facility]) | | | [facility] [place] [address] | | | [place] [address] | | + + + + + + + + | Performing | Address | City/State/Zipcode | Phone Number | | Organization | | | | + + + + + | [facility] | [address] | [place] [address] | | | LABORATORY | | | [...] RLB ([facility]) | | | [facility] [place] [address] | | | [place] [address] | | + + + + + + + + | Performing | Address | City/State/Zipcode | Phone Number | | Organization | | | | + + + + + | [facility] | [address] | [place] [address] | | | LABORATORY | | | [...] Performed At | + + + | [address] Estimated GFR > 60 mL/min/1.73 sq m if non- | [facility] | | [address] Estimated GFR > 60 mL/min/1.73 sq m [...] CENTER DEPARTMENT OF | [address] [facility] | [place] [address] | | | PATHOLOGY | [address] | | | + + + + + | [facility] DEPARTMENT OF | [address] [facility] | [place] [address] | | | PATHOLOGY | [address] [...] | [facility] | [address] [facility] | [place] [address] | | | PATHOLOGY | [address] | | | + + + + + | [facility] | [address] [facility] | [place] [address] | | | PATHOLOGY | [address] | | | + + + + + documented in this encounter Visit Diagnoses + + | Diagnosis | + + | Status post bariatric surgery - Primary Bariatric surgery status | + + documented in this encounter"
--- OUTSIDE RECORDS SUMMARY | ~2019-10-16 | XMS | Encounter Summary ---
Demographics + + + | Address | [address] | | | [place] [address] | + + + | Home Phone [...] Providers + +------+ + | Care Fund Raiser Name | Role | Phone | [...] as of this encounter Progress Notes Interface, Equities Analyst In - 09/13/2005 2:06 AM PST [id number] [facility] Date: 01/02/2005 Clinic: Endocrinology [...] months. Beto Meeks M.D. PD / HS [id number] / [id number] / [id number] / [id number] cc: Chris Padgett M.D. Electronically signed by Beto Meeks 09-12-2005 02:22:56 AM documented i n this encounter Plan of Treatment Not on filedocumented as of this encounter Visit Diagnoses Not on filedocumented in this encounter"
--- OUTSIDE RECORDS SUMMARY | ~2019-10-16 | XMS | Encounter Summary ---
Demographics + + + | Address | [address] | | | [place] [address] | + + + | Home Phone [...] Providers + +------+ + | Care Maintenance Department Technician Name | Role | Phone [...] | | | | Clinical Nutrition | [place], [place] | | | | | [address] | [address] | | | | | Loop Mailcode: OPC5 | [phone] | | | | | Outpatient Clinic | | | | | | [facility] | | | | | | [place] [address] | | | | | | [phone] | | | +--------+ + + + [...] + + + | [facility] | [address] | [place] [address] | | | LABORATORY | | | [...] | uIU/ml | | | | | [facility] | | | | | | Laboratories. | | | | + + + + + + + + | Specimen | + + | | + + + + + + + | Performing | Address | City/State/Zipcode | Phone Number | | Organization | | | | + + + + + | [facility] | [address] | [place] [address] | | | LABORATORY | | | [...] DEPARTMENT OF | [address] | [place] [address] | | | PATHOLOGY | [address] | | | + + + + + | [place] DEPARTMENT OF | [address] | [place] [address] | | | PATHOLOGY | [address] | | | + + + + + documented in this encounter Visit Diagnoses Not on filedocumented in this encounter"
--- OUTSIDE RECORDS SUMMARY | ~2019-10-16 | XMS | Encounter Summary ---
Demographics + + + | Address | [address] | | | [place] [address] | + + + | Home Phone [...] Team Providers + +------+ + | Care Napper Runner Name | Role | Phone | [...] + + | 03/04/ | Telephone | [facility] | Alanis, | Referral; Medication | | 2016 | | [address] | MD Petrona | Refill | | | | [facility] | [address] [place] [address] | | | | | [place] [address] | [place] [address] | | | | | [phone] | [phone] | | | | | | | [...] | | | | | [place] [address] | | | | | | [phone] | | | | | | | | +--------+ + + + + | 12/20/ | Office | Audiology | Elisabet Munson MS | | | 2019 | Visit | | [facility] [address] | | | | | | [address] [place] | | | | | | [place] [address] | | | | | | [phone] | | | | | | | | +--------+ + + + + | 12/20/ | Office | Otolaryngology | Ulysses Genao MD | | | 2019 | Visit | | [address] | | | | | | [address] [place], | | | | | | [place] [address] | | | | | | [phone] | | | | | | | | +--------+ + + + + documented as of this encounter Visit Diagnoses Not on filedocumented in this encounter"
--- OUTSIDE RECORDS SUMMARY | ~2019-10-16 | XMS | Encounter Summary ---
Demographics + + + | Address | [address] | | | [place] [address] | + + + | Home Phone [...] Providers + +------+ + | Care Installation Superintendent Name | Role | Phone | [...] as of this encounter Progress Notes Interface, Commodity Supervisor In - 08/30/2005 2:07 AM PST [id number] [facility] Date: 07/24/2005 Clinic: Surgery [...] for surgery. Chris Padgett M.D. ROSA / [id number] / [id number] / [id number] / [id number] Electronically signed by Chris Padgett 08-29-2005 03:28:14 PM documented i n this encounter Plan of Treatment Not on filedocumented as of this encounter Visit Diagnoses Not on filedocumented in this encounter"
--- OUTSIDE RECORDS SUMMARY | ~2019-10-16 | XMS | Encounter Summary ---
Demographics + + + | Address | [address] | | | [place] [address] | + + + | Home Phone [...] Providers + +------+ + | Care Career Representative Name | Role | Phone | [...] | | | [facility] | [place], [place] | | | | | [address] | [address] | | | | | [address] | [phone] | | | | | Physician's | | | | | | Pavilion, 1st floor | | | | | | [place], [place] | | | | | | [address] | | | | | | [phone] | | | +--------+ + + + [...]
--- OUTSIDE RECORDS SUMMARY | ~2019-10-16 | XMS | Encounter Summary ---
Demographics + + + | Address | [address] | | | [place] [address] | + + + | Home Phone [...] Providers + +------+ + | Care Balloon Design Printer Name | Role | Phone | [...] [address] | | | | | [place], [place] | [place], [place] | | | | | [address] | [address] | | | | | [phone] | [phone] | | | | | | | [...]
--- OUTSIDE RECORDS SUMMARY | ~2019-10-16 | XMS | Encounter Summary ---
Demographics + + + | Address | [address] | | | [place] [address] | + + + | Home Phone [...] + | 05/30/ | Refill | [facility] | Alanis, | Medication Refill | | 2016 | | MEDICINE [address] [place] [address] | MD Petrona | | | | | [facility] | [address] [place] [address] | | | | | [place] [address] | [place] [address] | | | | | [phone] | [phone] | | | | | | | [...] | | | | | [place] [address] | | | | | | [phone] | | | | | | | | +--------+ + + + + | 12/20/ | Office | Audiology | DarioElisabet ramires MS | | | 2019 | Visit | | [facility] [address] | | | | | [address] [place] | | | | | | [place], [place] [address] | | | | | | [phone] | | | | | | | | +--------+ + + + + | 12/20/ | Office | Otolaryngology | Ulysses Genao MD | | | 2019 | Visit | | [address] | | | | | | [address] [place], | | | | | | [place] [address] | | | | | | [phone] | | | | | | | | +--------+ + + + + documented as of this encounter Visit Diagnoses Not on filedocumented in this encounter"
--- OUTSIDE RECORDS SUMMARY | ~2019-10-16 | XMS | Clinical Summary ---
Demographics + + + | Address | [address] | | | [place] [address] | + + + | Home Phone [...] Team Providers + +------+ + | Care Parent Aide Name | Role | Phone | [...] + + + + + + | Fyyeoasvhm-Jkkg-Xndp | Rash | Low | | duplicate | | eine | | | | | + + + + + + | Tpgitkjwuj-Gvkw-Brwt | Hives, Rash | Low | 03/25/20 | | | eine | | | 17 | | + + + + + + | Kandvvzorf-Iiq-Dudr- | Other (See Comments) | Medium | [...] | 19 | | | | : rodent exterminator | Decreased | | | | | [...] | | | | | [place] [address] | | | | | | [phone] | | | | | | | | +--------+ + + + + | 12/20/ | Office | Audiology | Elisabet Munson MS | | | 2019 | Visit | | [facility] [address] | | | | | [address] [place] | | | | | | [place] [address] | | | | | | [phone] | | | | | | | | +--------+ + + + + | 12/20/ | Office | Otolaryngology | Ulysses Genao MD | | | 2019 | Visit | | [address] | | | | | | [address] [place], | | | | | | [place] [address] | | | | | | [phone] | | | | | | | [...] [address] | [place] | [phone] | | [facility] | | [address] | | | - LABORATORY | | [...] +--------+ +---------+--------+ | MEDICARE | MEDICA | [id number] | 07/16/19 | [phone] | | Medica | | | RE | | 03-Pre | 5 | | re | | | PART A | | sent | | | | | | AND B | | | | | | + +--------+ +--------+ +---------+--------+ | [employer] | [employer] | [id number] | 06/16/19 | [phone] | | Medica [...] | + +--------+ +--------+ + + | Belnida Meehan | Person | Self | [birth year] | | | al/Fam | | 1960 | [phone] | [place] [address] | | | bijan | | | 0 (Home) | | + +--------+ +--------+ + + Advance Directives + + + + + | Type | Date Recorded | Patient | Explanation | | | | Cartography Teacher | | + + + + + | Power of | | | | | [employer] | | | | + + + + + | Advance | 10/14/2018 10:09 | | | | Directive | AM | | | + + + + +
--- OUTSIDE RECORDS SUMMARY | ~2019-10-16 | XMS | Encounter Summary ---
Demographics + + + | Address | [address] | | | [place] [address] | + + + | Home Phone [...] Team Providers + +------+ + | Care Drainlayer Name | Role | Phone | + [...] + + | 10/16/ | Telephone | [facility] | Alanis, | Wrist Pain | | 2018 | | MEDICINE [address] [place] [address] | MD Petrona | | | | | [facility] | [address] [place] [address] | | | | | [place] [address] | [place] [address] | | | | | [phone] | [phone] | | | | | | | [...] | | | | | [place] [address] | | | | | | [phone] | | | | | | | | +--------+ + + + + | 12/20/ | Office | Audiology | Elisabet Munson MS | | 2019 | Visit | | [facility] | | | | | | [address] [place] | | | | | | [place] [address] | | | | | | [phone] | | | | | | | | +--------+ + + + + | 12/20/ | Office | Otolaryngology | Ulysses Genao MD | | | 2020 | Visit | | [address] | | | | | | [address] [place], | | | | | | [place] [address] | | | | | | [phone] | | | | | | | | +--------+ + + + + documented as of this encounter Visit Diagnoses Not on filedocumented in this encounter"
--- OUTSIDE RECORDS SUMMARY | ~2019-10-16 | XMS | Encounter Summary ---
Demographics + + + | Address | [address] | | | [place] [address] | + + + | Home Phone [...] Providers + +------+ + | Care Welt Drawer Name | Role | Phone | [...] + + | 08/18/ | Telephone | [facility] | Miranda Lambert, | Follow-up Diabetic | | 2006 | | [facility] Center at | ANP | Assessment | | | | [facility] [place] | | | | | | [address] | | | | | | Mailcode: CH15P | | | | | | [facility] | | | | | | and Healing, | | | | | | Building | | | | | | Floor [place], [place] | | | | | | [address] | | | | | | [phone] | | | +--------+ + + + [...]
--- OUTSIDE RECORDS SUMMARY | ~2019-10-16 | XMS | Encounter Summary ---
Demographics + + + | Address | [address] | | | [place] [address] | + + + | Home Phone [...] Providers + +------+ + | Care Veneer Stacker Name | Role | Phone | [...] + | 01/12/ | Refill | [facility] | Alanis, | Medication Refill | | 2017 | | MEDICINE [address] [place] [address] | MD Petrona | | | | | [facility] | [address] [place] [address] | | | | | [place] [address] | [place] [address] | | | | | [phone] | [phone] | | | | | | | [...] | | | | | [place] [address] | | | | | | [phone] | | | | | | | | +--------+ + + + + | 12/20/ | Office | Audiology | DarioElisabet ramiers MS | | | 2019 | Visit | | [facility] [address] | | | | | [address] [place] | | | | | | [place], [place] [address] | | | | | | [phone] | | | | | | | | +--------+ + + + + | 12/20/ | Office | Otolaryngology | Ulysses Genao MD | | | 2019 | Visit | | [address] | | | | | | [address] [place], | | | | | | [place] [id number] | | | | | | [phone] | | | | | | | | +--------+ + + + + documented as of this encounter Visit Diagnoses Not on filedocumented in this encounter"
--- OUTSIDE RECORDS SUMMARY | ~2019-10-16 | XMS | Encounter Summary ---
[...] Providers + +------+ + | Care Rn Transfer Name | Role | Phone | [...]
--- OUTSIDE RECORDS SUMMARY | ~2019-10-16 | XMS | Encounter Summary ---
Demographics + + + | Address | [address] | | | [place] [address] | + + + | Home Phone [...] Providers + +------+ + | Care Business Insight And Analytics Manager Name | Role | Phone | [...] + | 03/12/ | Refill | [facility] | Alanis, | Medication Refill | | 2018 | | MEDICINE [address] [place] [address] | MD Petrona | | | | | [facility] | [address] [place] [address] | | | | | [place] [address] | [place] [address] | | | | | [phone] | [phone] | | | | | | | [...] | | | | | [place] [address] | | | | | | [phone] | | | | | | | | +--------+ + + + + | 12/20/ | Office | Audiology | DarioElisabet ramires MS | | | 2019 | Visit | | [facility] [address] | | | | | [address] [place] | | | | | | [place], [place] [address] | | | | | | [phone] | | | | | | | | +--------+ + + + + | 12/20/ | Office | Otolaryngology | Ulysses Genao MD | | | 2019 | Visit | | [address] | | | | | | [address] [place], | | | | | | [place] [address] | | | | | | [phone] | | | | | | | | +--------+ + + + + documented as of this encounter Visit Diagnoses Not on filedocumented in this encounter"
--- OUTSIDE RECORDS SUMMARY | ~2019-10-16 | XMS | Encounter Summary ---
Demographics + + + | Address | [address] | | | [place] [address] | + + + | Home Phone [...] + +------+ + | Care Director Of Spa And Guest Experience Name | Role | Phone | + [...] Medication requested | | 2007 | | [facility] [address] | [address] | (sucralfate | | | | Ave Mailcode: CH4S | [facility] | (CARAFATE) 1 gram | | | | [facility] | [place], [place] | Oral Tablet) | | | | and Healing, | [address] | | | | | [facility] | [phone] | | | | | [place], [place] | | | | | | [address] | | | | | | [phone] | | | +--------+ + + + [...]
--- OUTSIDE RECORDS SUMMARY | ~2019-10-16 | XMS | Encounter Summary ---
Demographics + + + | Address | [address] | | | [place] [address] | + + + | Home Phone [...] Providers + +------+ + | Care Coil Cleaner Name | Role | Phone | [...] [address] | | | | | [facility] | [place], [place] | | | | | [address] | [address] | | | | | [address] | [phone] | | | | | [facility] | | | | | | Physician's | | | | | | Pavilion [place], | | | | | | [place] [address] | | | | | | [phone] | | | +--------+--------+ + + + [...]
--- OUTSIDE RECORDS SUMMARY | ~2019-10-16 | XMS | Encounter Summary ---
Demographics + + + | Address | [address] | | | [place] [address] | + + + | Home Phone [...] Providers + +------+ + | Care Field Naturalist Name | Role | Phone | + [...] + + | 06/17/ | Office | [facility] | Emmy-Kamlesh, | Migraine without | | 2019 | Visit | MEDICINE [address] [place] [address] | MD Petrona | aura and without | | | | Street [place] | [address] [place] [address] | status migrainosus, | | | | [place] [address] | [place] [address] | not intractable | | | | [phone] | [phone] | (Primary Dx); | | | | [...] her lower extremities. Had an MRI of [facility] recently showing chronic d egenerative changes and disc bulges in her lower back with no significant stenosis or other acute indications for neurosurgery. Findings were similar to a previous MRI from a few year s ago. She did have back surgery in [facility] on a number of years [...] Osteoporosis Peripheral neuropathy Rheumatoid arthritis ([facility] [...] Procedure: COLONOSCOPY; Surgeon: Luther Brito MD; Location: [facility] MEDICAL PROCEDURE UNIT DILATION AND CURETTAGE OF UTERUS ELBOW SURGERY FINGER TRIGGER RELEASE 2002 FINGER TRIGGER RELEASE 2009 GASTRIC BYPASS SURGERY 2004 HYSTERECTOMY 05/14/1980 JOINT REPLACEMENT Bilateral 2006 2007 KNEE ARTHROSCOPY 2005 LAPAROSCOPY 01/27/2015 LAPAROTOMY 2008 ROTATOR CUFF REPAIR 2005 SPINE SURGERY TONSILLECTOMY 1964 UPPER GASTROINTESTINAL ENDOSCOPY N/A 12/18/2017 Procedure: EGD; Surgeon: Luther Brito MD; Location: [facility] MEDICAL PROCEDURE UNIT CURRENT MEDICATIONS [...] (See Comments) Confused and questionable for seizures Pcfktytivz-Plhv-Dakbpjrc Hives and Rash Cephalexin Hives Ciprofloxacin Hives [...] - We'll refer for physical therapy in [place], including aquatic therapy. FOLLOW-UP Return in about 3 months (around 09/15/2018). Note: Parts of this documentwere created using Dragon speech recognition software. As a r esult, there may be unintended word spelling errors. Every attempt was made to correct the dictation. Shanta Trevino Manager Of Change - 06/17/2018 10:45 AM PSTFormatting of this note might be diff erent from the original. Administrations This Visit cyanocobalamin (VITAMIN B-12) injection 1,000 mcg Admin Date 06/17/2018 Action Given Dose 1000 mcg Route Intramuscular Administered By Shanta Whaley Manager Of Change Pt tolerated B-12 injection well. documented in [...] | | | | | [place] [address] | | | | | | [phone] | | | | | | | | +--------+ + + + + | 12/20/ | Office | Audiology | Elisabet Munson MS | | | 2019 | Visit | | [facility] [address] | | | | [address] [place] | | | | | | [place] [address] | | | | | | [phone] | | | | | | | | +--------+ + + + + | 12/20/ | Office | Otolaryngology | Ulysses Genao MD | | | 2019 | Visit | | [address] | | | | | | [address] [place], | | | | | | [place] [address] | | | | | | [phone] | | | | | | | [...]
--- OUTSIDE RECORDS SUMMARY | ~2019-10-16 | XMS | Encounter Summary ---
Demographics + + + | Address | [address] | | | [place] [address] | + + + | Home Phone [...] Providers + +------+ + | Care Special Diet Cook Name | Role | Phone | + +------+ + | Pedrito Gutierrez MD | PCP | | + +------+ + Encounter Details +--------+ + + + + | Date | Type | Department | Care Team | Description | +--------+ + + + + | 04/17/ | Telephone | [facility] Division of | Carlos Arreola, | | | 2005 | | Gastroenterology/Hep | [address] | | | | | atology [address] | | | | | [address] | [place] [address] | | | | | Mailcode: PV310 | [phone] | | | | | Physician's [facility] | | | | | | [address] | | | | | | [place], [place] | | | | | | [address] | | | | | | [phone] | | | +--------+ + + + [...]
--- OUTSIDE RECORDS SUMMARY | ~2019-10-16 | XMS | Encounter Summary ---
Demographics + + + | Address | [address] | | | [place] [address] | + + + | Home Phone [...] Providers + +------+ + | Care Asphalt Worker Name | Role | Phone | [...] | back pain | [place], | [address] | | | | | with | [place] | Phone: | | | | | bilateral | [address] | [phone] | | | | | sciatica | Phone: | Fax: | | | | | Procedures | [phone] | [phone] | | | | | MRI Lumbar | Fax: | | | | | | Spine wo | [phone] | | | | | | Contrast [...] + | 05/17/ | Office | [facility] | Emmy-Kamlesh, | Lumbar | | 2018 | Visit | MEDICINE [address] [place] [address] | MD Petrona | radiculopathy, acute | | | | Street [place] | [address] [place] [address] | (Primary Dx); Acute | | | | [place] [address] | [place] [address] | midline low back | | | | [phone] | [phone] | pain with bilateral | | | [...] Procedure: COLONOSCOPY; Surgeon: Luther Brito MD; Location: [facility] MEDICAL PROCEDURE UNIT DILATION AND CURETTAGE OF UTERUS ELBOW SURGERY FINGER TRIGGER RELEASE 2002 FINGER TRIGGER RELEASE 2010 GASTRIC BYPASS SURGERY 2004 HYSTERECTOMY 05/14/1980 JOINT REPLACEMENT Bilateral 2007 2008 KNEE ARTHROSCOPY 2005 LAPAROSCOPY 01/27/2015 LAPAROTOMY 2008 ROTATOR CUFF REPAIR 2005 SPINE SURGERY TONSILLECTOMY 1964 UPPER GASTROINTESTINAL ENDOSCOPY N/A 12/18/2017 Procedure: EGD; Surgeon: Luther Brito MD; Location: [facility] MEDICAL PROCEDURE UNIT CURRENT MEDICATIONS Current [...] ours as needed for Pain. Incontinence Supplies [facility] As directed 100 each 11 levothyroxine (SYNTHROID) [...] (See Comments) Confused and questionable for seizures Uerxbwgefg-Mrko-Oydheacu Hives and Rash Cephalexin Hives Ciprofloxacin Hives [...] Note: Parts of this documentwere created using [employer] speech recognition software. As a r esult, [...] | | | | | | [address] [facility] | | | | | | [place] [address] | | | | | | [phone] | | | | | | | | +--------+ + + + + | 12/20/ | Office | Audiology | Elisabet Munson | | | 2019 | Visit | | [facility] [address] | | | | [address] [place] | | | | | | [place] [address] | | | | | | [phone] | | | | | | | | +--------+ + + + + | 12/20/ | Office | Otolaryngology | Ulysses Genao MD | | | 2019 | Visit | | [address] | | | | | | [address] [place], | | | | | | [place] [address] | | | | | | [phone] | | | | | | | [...] | First dose on [facility] 10/15/17 at 1215 | | | [...]
--- OUTSIDE RECORDS SUMMARY | ~2019-10-16 | XMS | Encounter Summary ---
Demographics + + + | Address | [address] | | | [place] [address] | + + + | Home Phone [...] Team Providers + +------+ + | Care Hatchery Manager Name | Role | Phone [...] as of this encounter Progress Notes Interface, Hydrometer Tester In - 08/30/2005 2:07 AM PST [id number] [facility] Date: 08/11/2005 Clinic: Colorectal [...] annual schedule for checkups. Rebekah Navas M.D. Chirs Padgett M.D. / [id number] / [id number] / [id number] / [id number] E: 08/14/2005 krfrancesco cc: Dr. Sarah De Jesus, [place] Electronically signed by Chris Padgett 08-29-2005 03:28:30 PM documented i n this encounter Plan of Treatment Not on filedocumented as of this encounter Visit Diagnoses Not on filedocumented in this encounter"
--- OUTSIDE RECORDS SUMMARY | ~2019-10-16 | XMS | Encounter Summary ---
Demographics + + + | Address | [address] | | | [place] [address] | + + + | Home Phone [...] Team Providers + +------+ + | Care Freezer Worker Name | Role | Phone | [...] (has been | | 2007 | | [place] [address] | [address] | in the bathroom | | | | Ave Mailcode: CH4S | [facility] | since one this | | | | [facility] | [place], [place] | morning with | | | | and Healing, | [address] | IBS/dumping syndrome | | | | Building [address], | [phone] | symptoms) | | | | Floor [place], [place] | | | | | | [address] | | | | | | [phone] | | | +--------+ + + + [...]
--- OUTSIDE RECORDS SUMMARY | ~2019-10-16 | XMS | Encounter Summary ---
Demographics + + + | Address | [address] | | | [place] [address] | + + + | Home Phone [...] Team Providers + +------+ + | Care Litharge Supervisor Name | Role | Phone | [...] [id number] | | | | | | [place], [place] | | | | | | [address] | | | | | | [phone] | | | +--------+ + + + [...] | [facility] | | | | | | Laboratories. | | | | + + + + + + + + | Specimen | + + | | + + + + + + + | Performing | Address | City/State/Zipcode | Phone Number | | Organization | | | | + + + + + | [facility] | [address] | [place] [address] | | | LABORATORY | | | | + + + + + documented in this encounter Visit Diagnoses Not on filedocumented in this encounter"
--- OUTSIDE RECORDS SUMMARY | ~2019-10-16 | XMS | Encounter Summary ---
Demographics + + + | Address | [address] | | | [place] [address] | + + + | Home Phone [...] Providers + +------+ + | Care Microsoft Exchange Administrator Name | Role | Phone | [...]
--- OUTSIDE RECORDS SUMMARY | ~2019-10-16 | XMS | Encounter Summary ---
Demographics + + + | Address | [address] | | | [place] [address] | + + + | Home Phone [...] + + + + | 03/02/ | [facility] | [facility] | Alanis, | Neck pain on right | | 2018 | Encounter | [facility] | MD [place] | side | | | | [address] [place] | [address] [place] | | | | | [place], [place] | [place] [address] | | | | | [address] | [phone] | | | | | [phone] | | | +--------+ + + + [...] | | | | | [place] [address] | | | | | | [phone] | | | | | | | | +--------+ + + + + | 12/20/ | Office | Audiology | Elisabet Munson MS | | | 2019 | Visit | | [facility] [address] | | | | | [address] [place] | | | | | | [place] [address] | | | | | | [phone] | | | | | | | | +--------+ + + + + | 12/20/ | Office | Otolaryngology | Ulysses Genao MD | | | 2019 | Visit | | [address] | | | | | | [address] [place], | | | | | | [place] [address] | | | | | | [phone] | | | | | | | [...]
--- OUTSIDE RECORDS SUMMARY | ~2019-10-16 | XMS | Encounter Summary ---
Demographics + + + | Address | [address] | | | [place] [address] | + + + | Home Phone [...] Providers + +------+ + | Care Manager Staffing Name | Role | Phone | + [...] | | | Avjennifer Mailcode: [facility] | [address] | wants to get back on | | | | [facility] | [place], [place] | vitamins) | | | | and Healing, | [address] | | | | | [place] [address] [facility] | [phone] | | | | | Floor [place], [place] | | | | | | [address] | | | | | | [phone] | | | +--------+ + + + [...]
--- OUTSIDE RECORDS SUMMARY | ~2019-10-16 | XMS | Encounter Summary ---
Demographics + + + | Address | [address] | | | [place] [address] | + + + | Home Phone [...] Providers + +------+ + | Care Line Puller Name | Role | Phone | [...] Pain; Status Post | | | | [place], [place] | | Bariatric Surgery | | | | [address] | | | | | | [phone] | | | +--------+------+ + + + [...] Performed At | + + + | [id number] Estimated GFR > 60 mL/min/1.73 sq m if non- | [facility] | | Somali [id number] Estimated GFR > 60 mL/min/1.73 sq m if | DEPARTMENT OF | | Somali GFR is estimated using the MDRD equation [...] + | [facility] | [address] | [place] [address] | | | PATHOLOGY | [address] | | | + + + + + | [facility]PARTMENT | [address] | [place] [address] | | | PATHOLOGY | [address] | | | + + + + + INR (08/28/2008 3:31 PM PDT) + + + + + + | Component | Value | Ref Range | Performed | Pathologist | | | | | At | Signature | + + + + + + | INR | 0.96Comment: | 0.90 - 1.20 INR | [facility] | | | | INR Therapeutic ranges [...] + | [facility] | [address] [facility] | [place] [address] | | | PATHOLOGY | [address] | | | + + + + + | [facility] DEPARTMENT OF | [address] | [place] [address] | | | PATHOLOGY | [address] | | | + + + + + documented in this encounter Visit Diagnoses + + | Diagnosis | + + | Chronic abdominal pain Abdominal pain, unspecified site | + + | Status post bariatric surgery Bariatric surgery status | + + documented in this encounter"
--- OUTSIDE RECORDS SUMMARY | ~2019-10-16 | XMS | Encounter Summary ---
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 1960 Start of Care: 06/23/2006 Referring Provider: [...] patient has increased her walking time at [employer] to 30-40 minutes daily, no t able [...]
--- OUTSIDE RECORDS SUMMARY | ~2019-10-16 | XMS | Encounter Summary ---
Demographics + + + | Address | [address] | | | [place] [address] | + + + | Home Phone [...] Providers + +------+ + | Care Cargo Vessel Stewardess Name | Role | Phone | + [...] as of this encounter Progress Notes Interface, Social Services Specialist In - 01/11/2005 6:26 PM PDTClinic [...] bypass surgery. Dwaine Al M.D. LEDY / [id number] / [id number] / [id number] / Tdocumented in this encounter Plan of Treatment Not on filedocumented as of this encounter Visit Diagnoses Not on filedocumented in this encounter"
--- OUTSIDE RECORDS SUMMARY | ~2019-10-16 | XMS | Encounter Summary ---
Demographics + + + | Address | [address] | | | [place] [address] | + + + | Home Phone [...] | | | | | | [place], [place] | | | | | | [address] | | | | | | [phone] | | | +--------+ + + + [...]
--- OUTSIDE RECORDS SUMMARY | ~2019-10-16 | XMS | Encounter Summary ---
Demographics + + + | Address | [address] | | | [place] [address] | + + + | Home Phone [...] Team Providers + +------+ + | Care Evaporator Repairer Name | Role | Phone | [...] + + | 08/26/ | Telephone | [facility] | Alanis, | Headache (Adult - | | 2018 | | MEDICINE [address] | MD [place] | Recurrent Or Known | | | | [address] [place] | [address] [facility] | Dx Migraines) | | | | [place] [address] | [place] [address] | | | | | [phone] | [phone] | | | | | | | [...] | | | | | [place] [address] | | | | | | [phone] | | | | | | | | +--------+ + + + + | 12/20/ | Office | Audiology | Elisabet Munson MS | | | 2019 | Visit | | [facility] [address] | | | [address] [place] | | | | | | [place] [address] | | | | | | [phone] | | | | | | | | +--------+ + + + + | 12/20/ | Office | Otolaryngology | Ulysses Genao MD | | | 2019 | Visit | | [address] | | | | | | [address] [place], | | | | | | [place] [address] | | | | | | [phone] | | | | | | | [...]
--- OUTSIDE RECORDS SUMMARY | ~2019-10-16 | XMS | Encounter Summary ---
Demographics + + + | Address | [address] | | | [place] [address] | + + + | Home Phone [...] Providers + +------+ + | Care Explosives Detonator Name | Role | Phone | + [...] + + | 09/16/ | Telephone | [facility] | Alanis, | Results, Imaging | | 2019 | | MEDICINE [address] | MD [place] | | | | | [facility] | [address] [place] [address] | | | | | [place] [address] | [place] [address] | | | | | [phone] | [phone] | | | | | | | [...] | | | | | [place] [address] | | | | | | [phone] | | | | | | | | +--------+ + + + + | 12/20/ | Office | Audiology | Elisabet Munson MS | | | 2019 | Visit | | [facility] [address] | | | | [address] [place] | | | | | | [place], [place] [address] | | | | | | [phone] | | | | | | | | +--------+ + + + + | 12/20/ | Office | Otolaryngology | Ulysses Genao MD | | | 2019 | Visit | | [address] | | | | | | [address] [place], | | | | | | [place] [address] | | | | | | [phone] | | | | | | | | +--------+ + + + + documented as of this encounter Visit Diagnoses Not on filedocumented in this encounter"
--- OUTSIDE RECORDS SUMMARY | ~2019-10-16 | XMS | Encounter Summary ---
Demographics + + + | Address | [address] | | | [place] [address] | + + + | Home Phone [...] Providers + +------+ + | Care Senior Account Clerk Name | Role | Phone | [...] + + | 07/30/ | Office | [facility] Comprehensive | Delfina Molina, | Cervical Spondylosis | | 2006 | Visit | Pain Center at | ANP | without Myelopathy | | | | [facility] | | (Primary Dx); Right | | | | [address] | | shoulder rotator | | | | Mailcode: CH15P | | cuff strain; | | | | [place] [facility] | | Spondylosis with | | | | and Healing, | | Myelopathy, Lumbar | | | | Building | | Region; Herniated | | | | Floor [place], [place] | | Lumbar | | | | [address] | | Intervertebral Disc | | | | [phone] | | L4-5; Migraine | | | [...] Meehan is a 46 y.o. 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 Since prior visit she had a 06/24/06: Bone density study and her T-Score -1.2 lumbar spine a nd -2.2 proximal femur. Collection Information Collection Date Collection Time Resulting Agency 03/10/2006 2:42 PM [facility] DEPARTMENT OF PATHOLOGY Component Results Component Value Range Status CALCIUM (LAB) 9.5 8.5 - 10.5 mg/dL Fin SPINE LUMBAR 2 VIEWS AT 1421 HOURS LUMBAR SPINE, 10/01/05 HISTORY: Back pain. FINDINGS: AP and lateral views of the lumbar spine show five [id number] lumbar vertebrae in normal alignment with no [...] spent in reviewing of chart, imaging and general counselor ing/coordindation of care. 1. For the [...] care and safety for your patient, [facility] r equires a primary care [...] Please indicate and fax your response to [phone]. I called and left a message on [facility] general voice mail requesting he call me to discuss prescribing and patient care. DELFINA MOLINA [facility] Mail code CH [address]P [facility] and [address] [address] aurav Tasha - 07/30/2006 7:35 [...]
--- OUTSIDE RECORDS SUMMARY | ~2019-10-16 | XMS | Encounter Summary ---
Demographics + + + | Address | [address] | | | [place] [address] | + + + | Home Phone [...] Providers + +------+ + | Care Router Operator Pin Name | Role | Phone | + [...] + | 11/26/ | Refill | [facility] | Alanis, | Medication Refill | | 2018 | | MEDICINE [address] [place] [address] | MD [place] | | | | | [facility] | [address] [place] [address] | | | | | [place] [address] | [place] [address] | | | | | [phone] | [phone] | | | | | | | [...] | | | | | [place] [address] | | | | | | [phone] | | | | | | | | +--------+ + + + + | 12/20/ | Office | Audiology | Elisabet MunsonMS | | | 2019 | Visit | | [facility] [address] | | [address] [place] | | | | | | [place] [address] | | | | | | [phone] | | | | | | | | +--------+ + + + + | 12/20/ | Office | Otolaryngology | Ulysses Genao MD | | | 2019 | Visit | | [address] | | | | | | [address] [place], | | | | | | [place] [address] | | | | | | [phone] | | | | | | | | +--------+ + + + + documented as of this encounter Visit Diagnoses + + | Diagnosis | + + | Chronic diarrhea Diarrhea | + + documented in this encounter"
--- OUTSIDE RECORDS SUMMARY | ~2019-10-16 | XMS | Encounter Summary ---
Demographics + + + | Address | [address] | | | [place] [address] | + + + | Home Phone [...] Providers + +------+ + | Care Bottom Buffer Name | Role | Phone | [...] | | | | | Procedures | [place], [place] | [address] [facility] | | | | | CONSULT TO | [address] | [address] | | | | | SURGERY - | | Rd [place], | | | | | GENERAL | | [place] | | | | | | | [address] | | | | | | | Phone: | | | | | | | [phone] | | | | | | | Fax: | | | | | | | [phone] | +--------+--------+ + + + + Encounter Details +--------+ + + + + | Date | Type | Department | Care Team | Description | +--------+ + + + + | 08/31/ | Pump Technician | Dig[facility]ive Health | Nuris Cardenas ANP | Hemorrhoid (Primary | | 2008 | | Center [address] | | Dx) | | | | [address] | | | | | | Mailcode: [id number] | | | | | | [facility] | | | | | | [place], [place] | | | | | | [address] | | | | | | [phone] | | | +--------+ + + + [...]
--- OUTSIDE RECORDS SUMMARY | ~2019-10-16 | XMS | Encounter Summary ---
Demographics + + + | Address | [address] | | | [place] [address] | + + + | Home Phone [...] Providers + +------+ + | Care Mica Machine Operator Name | Role | Phone [...] | - Disregard | | | | [facility] | | | | | | [address] | | | | | | Mailcode: CH15P | | | | | | [facility] | | | | | | and Healing, | | | | | | Building | | | | | | Floor [place], [place] | | | | | | [address] | | | | | | [phone] | | | +--------+ + + + [...]
--- OUTSIDE RECORDS SUMMARY | ~2019-10-16 | XMS | Encounter Summary ---
Demographics + + + | Address | [address] | | | [place] [address] | + + + | Home Phone [...] Team Providers + +------+ + | Care Dolly Driver Name | Role | Phone | [...] as of this encounter Progress Notes Interface, Rustic Terrazzo Setter In - 04/07/2006 2:32 AM PDT [id number] GEOVANNI SKELTON [place] [id number] Clinic Date: 04/01/2006 Clinic: Rheumatology Belinda Meehan is here for a couple of trigger point injections. She comes from [place]. Tomorrow, she is due for an EGD [...] 4 months. Caitlin Rivera M.S., F.N.P. / [id number] / [id number] / [id number] / [id number] Electronically signed by Caitlin Rivera 04-06-2006 03:23:35 PM documented i n this encounter Plan of Treatment Not on filedocumented as of this encounter Visit Diagnoses Not on filedocumented in this encounter"
--- OUTSIDE RECORDS SUMMARY | ~2019-10-16 | XMS | Encounter Summary ---
Demographics + + + | Address | [address] | | | [place] [address] | + + + | Home Phone [...] | 08/24/ | Telephone | [facility] | Alanis, | Toe Pain | | 2019 | | MEDICINE [address] [place] [address] | MD [place] | | | | | [facility] | [address] [place] [address] | | | | | [place] [address] | [place] [address] | | | | | [phone] | [phone] | | | | | | | [...] | | | | | [place] [address] | | | | | | [phone] | | | | | | | | +--------+ + + + + | 12/20/ | Office | Audiology | Elisabet Munson MS | | 2019 | Visit | | [facility] | | | | | | [address] [place] | | | | | | [place] [address] | | | | | | [phone] | | | | | | | | +--------+ + + + + | 12/20/ | Office | Otolaryngology | Ulysses Genao MD | | | 2019 | Visit | | [address] | | | | | | [address] [place], | | | | | | [place] [address] | | | | | | [phone] | | | | | | | [...]
--- OUTSIDE RECORDS SUMMARY | ~2019-10-16 | XMS | Encounter Summary ---
Demographics + + + | Address | [address] | | | [place] [address] | + + + | Home Phone [...] Team Providers + +------+ + | Care Pouncing Machine Operator Name | Role | [...] + + | 08/17/ | Telephone | [facility] | Alanis, | Other | | 2020 | | MEDICINE [address] [place] [address] | MD [place] | | | | | [facility] | [address] [place] [address] | | | | | [place] [address] | [place] [address] | | | | | [phone] | [phone] | | | | | | | [...] | | | | | [place] [address] | | | | | | [phone] | | | | | | | | +--------+ + + + + | 12/20/ | Office | Audiology | Elisabet Munson MS | | 2019 | Visit | | [facility] [address] | | | | | [address] [place] | | | | | | [place] [address] | | | | | | [phone] | | | | | | | | +--------+ + + + + | 12/20/ | Office | Otolaryngology | Ulysses Genao MD | | | 2020 | Visit | | [address] [facility] | | | | | | [address] [place], | | | | | | [place] [address] | | | | | | [phone] | | | | | | | | +--------+ + + + + documented as of this encounter Visit Diagnoses Not on filedocumented in this encounter"
--- OUTSIDE RECORDS SUMMARY | ~2019-10-16 | XMS | Encounter Summary ---
Demographics + + + | Address | [address] | | | [place] [address] | + + + | Home Phone [...] + +------+ + | Care Medical Assistant Secretary Name | Role | Phone | [...] + | 04/08/ | Telephone | [facility] | Alanis, | Headache | | 2017 | | MEDICINE [address] [place] [address] | MD [place] | | | | | [facility] | [address] | | | | | [place] [address] | [place] [address] | | | | | [phone] | [phone] | | | | | | | [...] | | | | | [place] [address] | | | | | | [phone] | | | | | | | | +--------+ + + + + | 12/20/ | Office | Audiology | Elisabet Munson MS | | 2019 | Visit | | [facility] [address] | | | | | [address] [place] | | | | | | [place] [address] | | | | | | [phone] | | | | | | | | +--------+ + + + + | 12/20/ | Office | Otolaryngology | Ulysses Genao MD | | | 2020 | Visit | | [address] | | | | | | [address] [place], | | | | | | [place] [address] | | | | | | [phone] | | | | | | | | +--------+ + + + + documented as of this encounter Visit Diagnoses Not on filedocumented in this encounter"
--- OUTSIDE RECORDS SUMMARY | ~2019-10-16 | XMS | Encounter Summary ---
Demographics + + + | Address | [address] | | | [place] [address] | + + + | Home Phone [...] Providers + +------+ + | Care Property And Casualty Insurance Agent Name | Role | Phone [...] as of this encounter Discharge Summaries Interface, Pillar Worker In - 08/30/2005 2:07 AM PST [id number] GEOVANNI [place] Admission Date: 07/24/2005 Discharge Date: [...] for an appointment. Joanna Ritchie M.D. / [id number] / [id number] / [id number] / Electronically signed by Chris Padgett 08-29-2005 03:28:23 PM documented i n this encounter Plan of Treatment Not on filedocumented as of this encounter Visit Diagnoses Not on filedocumented in this encounter"
--- OUTSIDE RECORDS SUMMARY | ~2019-10-16 | XMS | Encounter Summary ---
Demographics + + + | Address | [address] | | | [place] [address] | + + + | Home Phone [...] Providers + +------+ + | Care Natural Resource Manager Name | Role | Phone | [...] + + | 03/15/ | Telephone | [facility] | Alanis, | Appointment | | 2018 | | MEDICINE [address] [place] [address] | MD [place] | | | | | [facility] | [address] [place] [address] | | | | | [place] [address] | [place] [address] | | | | | [phone] | [phone] | | | | | | | [...] | | | | | [place] [address] | | | | | | [phone] | | | | | | | | +--------+ + + + + | 12/20/ | Office | Audiology | Elisabet Munson MS | | 2019 | Visit | | [facility] | | | | | | [address] [place] | | | | | | [place] [address] | | | | | | [phone] | | | | | | | | +--------+ + + + + | 12/20/ | Office | Otolaryngology | Ulysses Genao MD | | | 2020 | Visit | | [address] | | | | | | [address] [place], | | | | | | [place] [address] | | | | | | [phone] | | | | | | | | +--------+ + + + + documented as of this encounter Visit Diagnoses Not on filedocumented in this encounter"
--- OUTSIDE RECORDS SUMMARY | ~2019-10-16 | XMS | Encounter Summary ---
Demographics + + + | Address | [address] | | | [place] [address] | + + + | Home Phone [...] | Services | Therapy | Other | [facility] | HOSPITAL | | | Required | | idiopathic | i, | PHYSICAL | | | | | scoliosis, | [facility]ell | THERAPY [address] | | | | | lumbar | , [address] | [place] | | | | | region | [address] | [place], [place] | | | | | Chronic | [place], | [address] | | | | | bilateral | [place] | Phone: | | | | | low back | [address] | [phone] | | | | | pain with | Phone: | Fax: | | | | | bilateral | [phone] | [phone] | | | | | sciatica | Fax: | | | | | | Procedures | [phone] | | | | | | 07/20 [...] + + | 07/18/ | Office | [facility] | Alanis, | Chronic bilateral | | 2020 | Visit | MEDICINE [address] [place] [address] | MD Petrona | low back pain with | | | | [address] | [address] [facility] | bilateral sciatica | | | | [place] [address] | [place] [address] | (Primary Dx); Other | | | | [phone] | [phone] | idiopathic | | | | | [...] issues: Patient recently did an MRI in [place], [place], after which she had a steroid [...] (chronic obstructive pulmonary disease) ([facility]) Depression Diarrhea Dumping syndrome Fall at home Fatigue fracture of vertebra Fibromyalgia Full dentures GERD (gastroesophageal reflux disease) Glaucoma Hyperparathyroidism ([facility]) Hypothyroidism IBS (irritable bowel syndrome) Idiopathic scoliosis Leg edema Low back pain Lumbar postlaminectomy syndrome Lumbar radiculopathy primarily right 01/04/2015 Meniere syndrome Migraine with aura Migraines Muscle cramping Muscle spasm Myalgia Nausea Nonalcoholic hepatosteatosis Obesity Opioid dependence ([facility]) Orthostatic hypotension OLIVER (obstructive sleep apnea) Osteoarthritis, generalized Osteopenia Osteoporosis Palpitations Peripheral neuropathy Rheumatoid arthritis ([facility]) Right arm pain 01/04/2015 RLS (restless legs [...] Allergen Reactions Ensure Diarrhea Food Diarrhea Lactose Jhsmduotdt-Zdd-Yywz-Codeine Other (See Comments) Balance problems Codeine Sulfate Nausea Only Food Allergy Formula Diarrhea Ensure Levofloxacin Hives, Itching and Rash Butalbital Ropinirole Amitriptyline Hcl Other (See Comments) Confused and questionable for seizures Iotgtsditk-Icoe-Pcpilovm Rash duplicate Cdthsuagoj-Nxmb-Plvlijch Hives and Rash Cephalexin Hives Ciprofloxacin Hives and Rash Clarithromycin Hives and Rash Clindamycin Hcl Hives and Rash Doxycycline Rash Duloxetine Other (See Comments) Migraines and nausea Ketorolac Hives Levofloxacin Hives and Rash Morphine Swelling Penicillins Hives and Rash Ropinirole Hcl Hives Sulfamethoxazole-Trimethoprim Hives and Rash Tramadol Hcl Nausea Only FOLLOW-UP No follow-ups on file. Notes: 1. Parts of this documentwere created using [employer] speech recognition software. As a resu lt, [...] | | | | | [place] [address] | | | | | | [phone] | | | | | | | | +--------+ + + + + | 12/20/ | Office | Audiology | Elisabet Munson MS | | 2019 | Visit | | [address]A MACK | | | | | | [facility] Laron Zhao | | | | | | [place] [address] | | | | | | [phone] | | | | | | | | +--------+ + + + + | 12/20/ | Office | Otolaryngology | Ulysses Genao MD | | | 2019 | Visit | | [address] [facility] | | | | | | [address] [place], | | | | | | [place] [address] | | | | | | [phone] | | | | | | | [...] [address] | [place] | [phone] | | [facility] | | [address] | | | - LABORATORY | | [...] | | First dose on [facility] 10/15/17 at 1215 | [...]
--- OUTSIDE RECORDS SUMMARY | ~2019-10-16 | XMS | Encounter Summary ---
Demographics + + + | Address | [address] | | | [place] [address] | + + + | Home Phone [...] Providers + +------+ + | Care Manager Programming Name | Role | Phone | [...] + + | 11/09/ | Telephone | [facility] | Alanis, | Medical Problem | | 2018 | | MEDICINE [address] [place] [address] | MD Petrona | | | | | [facility] | [address] [place] [address] | | | | | [place] [address] | [place] [address] | | | | | [phone] | [phone] | | | | | | | [...] | | | | | [place] [address] | | | | | | [phone] | | | | | | | | +--------+ + + + + | 12/20/ | Office | Audiology | Ceasar MunsonahMS | | | 2019 | Visit | | [facility] [address] | | | | | | [address] [place] | | | | | | [place] [address] | | | | | | [phone] | | | | | | | | +--------+ + + + + | 12/20/ | Office | Otolaryngology | Ulysses Genao MD | | | 2019 | Visit | | [address] | | | | | | [address] [place], | | | | | | [place] [address] | | | | | | [phone] | | | | | | | | +--------+ + + + + documented as of this encounter Visit Diagnoses Not on filedocumented in this encounter"
--- OUTSIDE RECORDS SUMMARY | ~2019-10-16 | XMS | Encounter Summary ---
Demographics + + + | Address | [address] | | | [place] [address] | + + + | Home Phone [...] Providers + +------+ + | Care Lead Teacher Name | Role | Phone [...] | | | 2006 | Registratio | [facility] | [address] | | | | n | [place] Mailcode: RPB07 | [place], [place] | | | | | [place], [place] | [address] | | | | | [address] | [phone] | | | | | [phone] | | | +--------+ + + + [...] | | | | | performed by [employer] | pg/mL | | | | | [facility]. | | | | + + + + + + + + | Specimen | + + | | + + + + + + + | Performing | Address | City/State/Zipcode | Phone Number | | Organization | | | | + + + + + | [facility] | [address] | [place] [address] | | | LABORATORY | | | [...] at: | | | | | | [address] [place],[address] | | | | | | [facility] | | | | | | [address] | | | | | | [email or web address] | | | | + + + + + + + + | Specimen | + + | | + + + + + + + | Performing | Address | City/State/Zipcode | Phone Number | | Organization | | | | + + + + + | [facility] | [address] | [place], [place] | | | [facility] | | [address] | | + + + + + [...] Iron and TIBC, Serum Test performed by [facility] | | | [facility] [employer]. | | + + + + + + + + | Performing | Address | City/State/Zipcode | Phone Number | | Organization | | | | + + + + + | [facility] | [address] | [place] [address] | | | LABORATORY | | | [...] | B12, SERUM | Test performed by [place] | | | | | | [facility] | | | | | | Laboratories. | | | | + + + + + + + + | Specimen | + + | | + + + + + + + | Performing | Address | City/State/Zipcode | Phone Number | | Organization | | | | + + + + + | [facility] | [address] | [place] [address] | | | LABORATORY | | | [...] [facility] DEPARTMENT OF | [address] | [place] [address] | | | PATHOLOGY | [address] | | | + + + + + | [place] DEPARTMENT OF | [address] | [place] [address] | | | PATHOLOGY | [address] [...] DEPARTMENT OF | [address] | [place] [address] | | | PATHOLOGY | [address] | | | + + + + + | [facility] | [facility] [address] | [place] [address] | | | PATHOLOGY | [address] [...] Performed At | + + + | [id number] Estimated GFR > 60 mL/min/1.73 sq m if non- | [facility] | | [id number] Estimated GFR > 60 mL/min/1.73 sq m [...] | [facility] | [address] | [place] [address] | | | PATHOLOGY | [address] | | | + + + + + | [facility] | [address] | [place] [address] | | | PATHOLOGY | [address] | | | + + + + + documented in this encounter Visit Diagnoses Not on filedocumented in this encounter"
--- OUTSIDE RECORDS SUMMARY | ~2019-10-16 | XMS | Encounter Summary ---
Demographics + + + | Address | [address] | | | [place] [address] | + + + | Home Phone [...] Providers + +------+ + | Care Petroleum Engineering Professor Name | Role | Phone | [...] of this encounter Progress Notes Interface, Cloth Bleaching Supervisor In - 09/13/2005 2:06 AM PST [id number] [facility] Date: 12/12/2004 Clinic: Endocrinology PHONE CONTACT NOTE The patient called me today after having surgery last week here at [facility]. Her concern was the development of [...] cushion which I have ordered today through [employer], phone #[phone] and fax #[phone]. Today, the patient will monitor the decubiti closely and will be in touch with myself and her other physician depending on the progress. She also still has [address], which may be removed in one or two weeks when she returns to the Surgery Clinic at [facility]. Beto Meeks M.D. PD / HS [id number] / [id number] / [id number] / [id number] cc: Chris Padgett M.D. Electronically signed by Beto Meeks 09-12-2005 02:22:31 AM documented i n this encounter Plan of Treatment Not on filedocumented as of this encounter Visit Diagnoses Not on filedocumented in this encounter"
--- OUTSIDE RECORDS SUMMARY | ~2019-10-16 | XMS | Encounter Summary ---
Demographics + + + | Address | [address] | | | [place] [address] | + + + | Home Phone [...] Providers + +------+ + | Care Resident Buyer Name | Role | Phone | [...] | | 2006 | | Faculty at [employer] | MD Darrion,PhD [address] | | | | | for Health and | [address] | | | | | Healing [address] | [place], [place] | | | | | Ave Mailcode: | [address] | | | | | CH12A [facility] | [phone] | | | | | Health and Healing, | | | | | | [facility] | | | | | | [place], [place] | | | | | | [address] | | | | | | [phone] | | | +--------+ + + + [...]
--- OUTSIDE RECORDS SUMMARY | ~2019-10-16 | XMS | Encounter Summary ---
Demographics + + + | Address | [address] | | | [place] [address] | + + + | Home Phone [...] + + | 08/14/ | Telephone | [facility] | Alanis, | Lab Order | | 2017 | | MEDICINE [address] [place] [address] | MD Petrona | | | | | [facility] | [address] [place] [address] | | | | | [place] [address] | [place] [address] | | | | | [phone] | [phone] | | | | | | | [...] | | | | | [place] [address] | | | | | | [phone] | | | | | | | | +--------+ + + + + | 12/20/ | Office | Audiology | Elisabet Munson MS | | 2019 | Visit | | [facility] [address] | | | | | | [address] [place] | | | | | | [place] [address] | | | | | | [phone] | | | | | | | | +--------+ + + + + | 12/20/ | Office | Otolaryngology | Ulysses Genao MD | | | 2019 | Visit | | [address] | | | | | | [address] [place], | | | | | | [place] [address] | | | | | | [phone] | | | | | | | | +--------+ + + + + documented as of this encounter Visit Diagnoses + + | Diagnosis | + + | Preop examination - Primary Preoperative examination, unspecified | + + documented in this encounter"
--- OUTSIDE RECORDS SUMMARY | ~2019-10-16 | XMS | Encounter Summary ---
Demographics + + + | Address | [address] | | | [place] [address] | + + + | Home Phone [...] Team Providers + +------+ + | Care Visiting Teacher Name | Role | Phone [...] Densitometry | | MD Beto | Density [facility] | | | | | Osteoporosis | [address] | [address] | | | | | Procedures | Ave | [address] | | | | | CONSULT TO | [place], [place] | Rd Mailcode: | | | | | BONE | [address] | [address] | | | | | DENSITOMETRY | Phone: | [address] | | | | | | [phone] | [place], [place] | | | | | | Fax: | [address] | | | | | | [phone] | Phone: | | | | | | | [phone] | | | | | | | Fax: | | | | | | | [phone] | +--------+--------+ + + + + Reason [...] [address] | | | | | [place] [facility] | [place], [place] | | | | | [address] | [address] | | | | | [address] | [phone] | | | | | [facility] | | | | | | Physician's | | | | | | Pavilion [place], | | | | | | [place] [address] | | | | | | [phone] | | | +--------+ + + + [...]
--- OUTSIDE RECORDS SUMMARY | ~2019-10-16 | XMS | Encounter Summary ---
Demographics + + + | Address | [address] | | | [place] [address] | + + + | Home Phone [...] Team Providers + +------+ + | Care Debate Director Name | Role | Phone | [...] | | | [facility] | [place], [place] | Bypass Surgery November | | | | [address] | [address] | 2003; | | | | [address] | [phone] | Hypothyroidism; | | | | [facility] | | Essential | | | | Physician's | | hypertension 401.9; | | | | Pavilion [place], | | Iron Deficiency | | | | [place] [address] | | | | | | [phone] | | | +--------+---------+ + + + [...] only in [facility]) made gut pain worse 08/27/06: Trial of [...] 300 mg) by oral route once daily kfibnmnnsi-tfjrnmvaudfir-kcvhuthw (FIORICET) 50-325-40 mg Oral Tablet take 2 [...]
--- OUTSIDE RECORDS SUMMARY | ~2019-10-16 | XMS | Encounter Summary ---
Demographics + + + | Address | [address] | | | [place] [address] | + + + | Home Phone [...] Providers + +------+ + | Care Collar Band Creaser Name | Role | Phone | [...] | | 2006 | | Faculty at [employer] | MD Darrion,PhD [address] | | | | | for Health and | [address] | | | | | Healing [address] | [place], [place] | | | | | Bethanie Mailcode: | [address] | | | | | [facility] [facility] | [phone] | | | | | Health and Healing, | | | | | | [facility] | | | | | | Floor [place], [place] | | | | | | [address] | | | | | | [phone] | | | +--------+ + + + [...]
--- OUTSIDE RECORDS SUMMARY | ~2019-10-16 | XMS | Encounter Summary ---
Demographics + + + | Address | [address] | | | [place] [address] | + + + | Home Phone [...] Team Providers + +------+ + | Care Technician Support Engineer Name | Role | Phone | + +------+ + | Petrona Thapa | PCP | | | MD | | | + +------+ + Encounter Details +--------+---------+ + + + | Date | Type | Department | Care Team | Description | +--------+---------+ + + + | 12/18/ | Surgery | [facility] | Luther Brito MD | EGD | | 2018 | | MED CTR MP INTRA OP | [address] | | | | | [address] | [place], [place] | | | | | [place], [place] | [address] | | | | | [address] | [phone] | | | | | [phone] | | | +--------+---------+ + + + [...] You can't be awakened Date Last Reviewed: 04/01/201619995000-7720 [employer]. [address] [place] [address]. All righ ts reserved. This information is [...] | | | | | [place] [address] | | | | | | [phone] | | | | | | | | +--------+ + + + + | 12/20/ | Office | Audiology | Elisabet Munson MS | | | 2019 | Visit | | [facility] [address] | | | | | [address] [place] | | | | | | [place] [address] | | | | | | [phone] | | | | | | | | +--------+ + + + + | 12/20/ | Office | Otolaryngology | Ulysses Genao MD | | | 2019 | Visit | | [address] | | | | | | [address] [place], | | | | | | [place] [address] | | | | | | [phone] | | | | | | | [...] 12/18/2017 | PROVATION | | 10:49 AMMRN: [id number] #: [id number] of : | | | 9Admit Type: AmbulatoryAge: 57Room: [facility] 01Gender: FemaleNote | | | Status: FinalizedAttending MD: Luther Brito [facility]: | | | Upper GI endoscopyIndications: [...] the anesthesiologist and the | | | microbiological lab technician in the pre-procedure area in the [...] | appearing mucosa. This was traversed. The bxyvb-vo-qjzkusd limb | | | was characterized by healthy appearing mucosa. The | | | jejunojejunal anastomosis was characterized by healthy | | | appearing mucosa. The xoxryvni-yj-vlijqgo limb was not examined | | | [...] AMScope Out: | | | 11:08:34 AM [facility] [address] | | | [place] [address] | | | - Return to GI [...] |Scope Out: 11:08:34 AM | | | [facility] [address] [place], [place] | | | [address] | | + + -+ + +---------+ [...] 12/18/2017 | PROVATION | | 10:43 AMMRN: [id number] #: [id number] of : | | | 9Admit Type: AmbulatoryAge: 57Room: [facility] 01Gender: FemaleNote | | | Status: FinalizedAttending MD: Luther Brito [facility]cedure: | | | ColonoscopyIndications: Generalized abdominal [...] the anesthesiologist and the | | | microbiological lab technician in the pre-procedure area in the [...] Scope In: 11:12:28 AMScope Out: 11:56:57 AM [place] | | | [facility], [address] [place] [address] | | | [phone] | | | - Await pathology results. [...] |Scope Out: 11:56:57 AM | | | [facility], [address] [place] [address] | | | [address] | | + + -+ + +---------+ [...] for specific diagnostic abnormality. | | | VR:[facility]:C2NR GROSS DESCRIPTION: Received in five parts. [...] | | slide preparation were performed by [email or web address], [address] [place] [address] | | | [facility], [facility], [place] [address] (Certified Paralegal: Stephen Jacobson, | | | Joanna CLIA#: [id number]). Professional interpretation was performed | | | by [email or web address], [facility], [facility] | | | [facility], [place] [address] (Certified Paralegal: Stephen | | | Joanna Jacobson; CLIA#: [id number]). Diagnostician: Stephen Khan | | | Kavon [...]
--- OUTSIDE RECORDS SUMMARY | ~2019-10-16 | XMS | Encounter Summary ---
Demographics + + + | Address | [address] | | | [place] [address] | + + + | Home Phone [...] Providers + +------+ + | Care Autism Tutor Name | Role | Phone | [...] Office | [facility] | Lukasz Charles, | Major Depressive | | 2006 | Visit | [address] | PhD [address] | Disorder, Recurrent | | | | Mailcode: [facility] | [place], [place] | Episode, Moderate; | | | | [facility] | [address] | Chronic Abdominal | | | | and Healing, | [phone] | Pain; Herniated | | | | Building | | Lumbar | | | | Floor [place], [place] | | Intervertebral Disc | | | | [address] | | L4-5; 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 Ms. Meehan has depression and frustration. She is having some difficulty increasing her a ctivity level but she is putting forth effort. She appears to have good insight. Diagnosis: [place] I: 1. (296.32) Major depressive disorder, recurrent, moderate. 2. (309.24) Adjustment disorder with anxiety. 3. 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 [place] II: Deferred [place] III: abdominal pain, migraine headache, low back pain. [place] IV: low finances [place] V: GAF 50 Plan: Return in 2 weeks. Check pacing, relaxation, activity. Check trip to [place]. Check mood. Continue cognitive/behavioral therapy. Total time spent with patient was approximately 45 minutes. LUKASZ CHARLES PHD [facility] [address] [facility] [address] [address] documented in this encount er Plan of Treatment + + +--------+ + + | Name | Type | Priori | Associated Diagnoses | Order Schedule | | | | ty | | | + + +--------+ + + | AL PSYCHOTHERPY, | Procedures | Routin | Major Depressive | Ordered: 07/31/2006 | | OFFICE (45-32) | | e | Disorder, Recurrent | [...]
--- OUTSIDE RECORDS SUMMARY | ~2019-10-16 | XMS | Encounter Summary ---
Demographics + + + | Address | [address] | | | [place] [address] | + + + | Home Phone [...] Team Providers + +------+ + | Care Phlebotomist Medical Lab Assistant Name | Role | Phone [...] + | 09/30/ | Refill | [facility] | Alanis, | Medication Refill | | 2018 | | MEDICINE [address] [place] [address] | MD Petrona | | | | | [facility] | [address] [place] [address] | | | | | [place] [address] | [place] [address] | | | | | [phone] | [phone] | | | | | | | [...] | | | | | [place] [address] | | | | | | [phone] | | | | | | | | +--------+ + + + + | 12/20/ | Office | Audiology | DarioElisabet ramires MS | | | 2019 | Visit | | [facility] [address] | | | | | [address] [place] | | | | | | [place], [place] [address] | | | | | | [phone] | | | | | | | | +--------+ + + + + | 12/20/ | Office | Otolaryngology | Ulysses Genao MD | | | 2019 | Visit | | [address] | | | | | | [address] [place], | | | | | | [place] [address] | | | | | | [phone] | | | | | | | | +--------+ + + + + documented as of this encounter Visit Diagnoses Not on filedocumented in this encounter"
--- OUTSIDE RECORDS SUMMARY | ~2019-10-16 | XMS | Encounter Summary ---
Demographics + + + | Address | [address] | | | [place] [address] | + + + | Home Phone [...] + +------+ + | Care Switchboard Operator Supervisor Name | Role | Phone [...] + | 03/27/ | Telephone | [facility] | Alanis, | Hip Pain | | 2016 | | MEDICINE [address] [place] [address] | MD Petrona | | | | | [facility] | [address] [place] [address] | | | | | [place] [address] | [place] [address] | | | | | [phone] | [phone] | | | | | | | [...] | | | | | [place] [address] | | | | | | [phone] | | | | | | | | +--------+ + + + + | 12/20/ | Office | Audiology | Elisabet Munson MS | | 2019 | Visit | | [facility] | | | | | | [address] [place] | | | | | | [place] [address] | | | | | | [phone] | | | | | | | | +--------+ + + + + | 12/20/ | Office | Otolaryngology | Ulysses Genao MD | | | 2019 | Visit | | [address] | | | | | | [address] [place], | | | | | | [place] [address] | | | | | | [phone] | | | | | | | [...]
--- OUTSIDE RECORDS SUMMARY | ~2019-10-16 | XMS | Encounter Summary ---
Demographics + + + | Address | [address] | | | [place] [address] | + + + | Home Phone [...] Team Providers + +------+ + | Care [place]oula Name | Role | Phone | + [...] + + | 08/10/ | Telephone | [facility] | Rosi Antonio, | Fall Ground Level | | 2013 | | Pain Center at | ANP | | | | | [facility] | | | | | | [address] | | | | | | Mailcode: CH15P | | | | | | [facility] | | | | | | and Healing, | | | | | | Building | | | | | | Floor [place], [place] | | | | | | [address] | | | | | | [phone] | | | +--------+ + + + [...]
--- OUTSIDE RECORDS SUMMARY | ~2019-10-16 | XMS | Encounter Summary ---
Demographics + + + | Address | [address] | | | [place] [address] | + + + | Home Phone [...] Team Providers + +------+ + | Care Chronometer Adjuster Name | Role | Phone | [...] | | | [facility] | [place], [place] | | | | | [address] | [address] | | | | | [address] | [phone] | | | | | [facility] | | | | | | Physician's | | | | | | Pavilion [place], | | | | | | [place] [address] | | | | | | [phone] | | | +--------+ + + + [...]
--- OUTSIDE RECORDS SUMMARY | ~2019-10-16 | XMS | Encounter Summary ---
Demographics + + + | Address | [address] | | | [place] [address] | + + + | Home Phone [...] Team Providers + +------+ + | Care Conveyor Feeder Name | Role | Phone | [...] 2016 | | NEUROLOGY [place] | [address] | | | | | [facility], | JESSICA [address] | | | | | [address] [place] | [place] | | | | | [place] [address] | [address] | | | | | [phone] | | | +--------+ + + + [...] | | | | | [place] [address] | | | | | | [phone] | | | | | | | | +--------+ + + + + | 12/20/ | Office | Audiology | Elisabet Munson MS | | | 2019 | Visit | | [facility] [address] | | | | | | [address] [place] | | | | | | [place] [address] | | | | | | [phone] | | | | | | | | +--------+ + + + + | 12/20/ | Office | Otolaryngology | Ulysses Genao MD | | | 2020 | Visit | | [address] | | | | | | [address] [place], | | | | | | [place] [address] | | | | | | [phone] | | | | | | | | +--------+ + + + + documented as of this encounter Visit Diagnoses Not on filedocumented in this encounter"
--- OUTSIDE RECORDS SUMMARY | ~2019-10-16 | XMS | Encounter Summary ---
Demographics + + + | Address | [address] | | | [place] [address] | + + + | Home Phone [...] + +------+ + | Care Wind Turbine Mechanical Engineer Name | Role | Phone [...] | | | [facility] | [place], [place] | | | | | [address] | [address] | | | | | [address] | [phone] | | | | | Physician's Sharmila | | | | | | Physician's | | | | | | [place], | | | | | | [place] [address] | | | | | | [phone] | | | +--------+---------+ + + + [...]
--- OUTSIDE RECORDS SUMMARY | ~2019-10-16 | XMS | Encounter Summary ---
Demographics + + + | Address | [address] | | | [place] [address] | + + + | Home Phone [...] Providers + +------+ + | Care Photographic Equipment Mechanic Name | Role | Phone [...] + | 11/20/ | Refill | [facility] | Alanis, | Medication Refill | | 2017 | | MEDICINE [address] [place] [address] | MD Petrona | | | | | [facility] | [address] [place] [address] | | | | | [place] [address] | [place] [address] | | | | | [phone] | [phone] | | | | | | | [...] | | | | | [place] [address] | | | | | | [phone] | | | | | | | | +--------+ + + + + | 12/20/ | Office | Audiology | DarioElisabet ramires MS | | | 2019 | Visit | | [facility] [address] | | | | | [address] [place] | | | | | | [place], [place] [address] | | | | | | [phone] | | | | | | | | +--------+ + + + + | 12/20/ | Office | Otolaryngology | Ulysses Genao MD | | | 2019 | Visit | | [address] | | | | | | [address] [place], | | | | | | [place] [address] | | | | | | [phone] | | | | | | | | +--------+ + + + + documented as of this encounter Visit Diagnoses Not on filedocumented in this encounter"
--- OUTSIDE RECORDS SUMMARY | ~2019-10-16 | XMS | Encounter Summary ---
Demographics + + + | Address | [address] | | | [place] [address] | + + + | Home Phone [...] Team Providers + +------+ + | Care Patcher Bowling Ball Name | Role | Phone | [...] | | | | [facility] Physician's | [place], [place] | | | | | [address] | [address] | | | | | [place], [place] | [phone] | | | | | [address] | | | | | | [phone] | | | +--------+ + + + [...]
--- OUTSIDE RECORDS SUMMARY | ~2019-10-16 | XMS | Encounter Summary ---
Demographics + + + | Address | [address] | | | [place] [address] | + + + | Home Phone [...] Providers + +------+ + | Care Business Trainer Name | Role | Phone | [...] | Epigastric | T, ANP | [address] | | | | | pain Status | [place], [place] | [address] | | | | | post | [address] | [place] | | | | | bariatric | | [place], 4th | | | | | surgery | | floor | | | | | Procedures | | [place], [place] | | | | | CONSULT TO | | [address] | | | | | GI PROCEDURE | | Phone: | | | | | UNIT: EGD | | [phone] | | | | | | | Fax: | | | | | | | [phone] | +--------+--------+ + + + + Reason [...] | | | | | | Rd [place], | | | | | | | [place] | | | | | | | [address] | | | | | | | Phone: | | | | | | | [phone] | | | | | | | Fax: | | | | | | | [phone] | +--------+--------+ + + + + Encounter Details +--------+---------+ + + + | Date | Type | Department | Care Team | Description | +--------+---------+ + + + | 08/28/ | Office | Digestive Health | Chris Padgett, | Epigastric Pain | | 2008 | Visit | [place] [address] | [address] | (Primary Dx); Status | | | | Ave Mailcode: CH4S | [facility] [address] | Post Bariatric | | | | [facility] for [facility] | [place], [place] | Surgery | | | | and Healing, | [address] | | | | | | [phone] | | | | | [place], [place] | | | | | | [address] | | | | | | [phone] | | | +--------+---------+ + + + [...] Performed At | + + + | [id number] Estimated GFR > 60 mL/min/1.73 sq m if non- | [facility] | | [place] 345333 Estimated GFR > 60 mL/min/1.73 sq m [...] | [facility] | [address] | [place] [address] | | | PATHOLOGY | [address] | | | + + + + + | [facility] | [address] | [place] [address] | | | PATHOLOGY | [address] | | | + + + + + documented in this encounter Visit Diagnoses + + | Diagnosis | + + | Epigastric pain - Primary Abdominal pain, epigastric | + + | Status post bariatric surgery Bariatric surgery status | + + documented in this encounter"
--- OUTSIDE RECORDS SUMMARY | ~2019-10-16 | XMS | Encounter Summary ---
Demographics + + + | Address | [address] | | | [place] [address] | + + + | Home Phone [...] Team Providers + +------+ + | Care Staple Fiber Washer Name | Role | Phone | [...] [address] | | | | | | [place], [place] | | | | | | [address] | | | | | | [phone] | | | +--------+ + + + [...]
--- OUTSIDE RECORDS SUMMARY | ~2019-10-16 | XMS | Encounter Summary ---
Demographics + + + | Address | [address] | | | [place] [address] | + + + | Home Phone [...] Providers + +------+ + | Care Flat Machine Cutter Name | Role | Phone | [...] + + | 09/04/ | Telephone | [facility] | Alanis, | Appointment Question | 2019 | | MEDICINE [address] [place] [address] | MD Petrona | | | | | [facility] | [address] [place] [place] [address] | | | | | [place] [address] | [place] [address] | | | | | [phone] | [phone] | | | | | | | [...] | | | | | [place] [address] | | | | | | [phone] | | | | | | | | +--------+ + + + + | 12/20/ | Office | Audiology | Elisabet Munson MS | | | 2019 | Visit | | [facility] [address] | | | | | [address] [place] | | | | | | [place] [address] | | | | | | [phone] | | | | | | | | +--------+ + + + + | 12/20/ | Office | Otolaryngology | Ulysses Genao MD | | | 2019 | Visit | | [address] | | | | | | [address] [place], | | | | | | [place] [address] | | | | | | [phone] | | | | | | | | +--------+ + + + + documented as of this encounter Visit Diagnoses Not on filedocumented in this encounter"
--- OUTSIDE RECORDS SUMMARY | ~2019-10-16 | XMS | Encounter Summary ---
Demographics + + + | Address | [address] | | | [place] [address] | + + + | Home Phone [...] + +------+ + | Care Vice President Of News Name | Role | Phone | [...] + | 02/15/ | Refill | [facility] | Alanis, | Medication Refill | | 2018 | | MEDICINE [address] [place] [address] | MD Petrona | | | | | [facility] | [address] [place] [address] | | | | | [place] [address] | [place] [address] | | | | | [phone] | [phone] | | | | | | | [...] | | | | | [place] [address] | | | | | | [phone] | | | | | | | | +--------+ + + + + | 12/20/ | Office | Audiology | DarioElisabet ramires MS | | | 2019 | Visit | | [facility] [address] | | | | | [address] [place] | | | | | | [place], [place] [address] | | | | | | [phone] | | | | | | | | +--------+ + + + + | 12/20/ | Office | Otolaryngology | Ulysses Genao MD | | | 2019 | Visit | | [address] | | | | | | [address] [place], | | | | | | [place] [address] | | | | | | [phone] | | | | | | | | +--------+ + + + + documented as of this encounter Visit Diagnoses Not on filedocumented in this encounter"
--- OUTSIDE RECORDS SUMMARY | ~2019-10-16 | XMS | Encounter Summary ---
Demographics + + + | Address | [address] | | | [place] [address] | + + + | Home Phone [...] + + | 01/04/ | Telephone | [facility] | Ulysses Genao MD | Other | | 2017 | | OTOLARYNGOLOGY [address] | [address] [facility] | | | | | [address] [facility] [address] | [address] [place], | | | | | [place] | [place] [address] | | | | | [address] | [phone] | | | | | [phone] | | | +--------+ + + + [...] | | | | | [place] [address] | | | | | | [phone] | | | | | | | | +--------+ + + + + | 12/20/ | Office | Audiology | Elisabet Munson MS | | 2019 | Visit | | [facility] [address] | | | | | | [address] [place] | | | | | | [place] [address] | | | | | | [phone] | | | | | | | | +--------+ + + + + | 12/20/ | Office | Otolaryngology | Ulysses Genao MD | | | 2020 | Visit | | [address] [facility] | | | | | | [address] [place], | | | | | | [place] [address] | | | | | | [phone] | | | | | | | | +--------+ + + + + documented as of this encounter Visit Diagnoses Not on filedocumented in this encounter"
--- OUTSIDE RECORDS SUMMARY | ~2019-10-16 | XMS | Encounter Summary ---
Demographics + + + | Address | [address] | | | [place] [address] | + + + | Home Phone [...] Providers + +------+ + | Care Wood Lather Name | Role | Phone | + [...] + + | 01/01/ | Refill | [facility] | Alanis, | Medication Refill | | 2017 | | MEDICINE [address] [place] [address] | MD Petrona | | | | | [facility] | [address] [place] [address] | | | | | [place] [address] | [place] [address] | | | | | [phone] | [phone] | | | | | | | [...] | | | | | [place] [address] | | | | | | [phone] | | | | | | | | +--------+ + + + + | 12/20/ | Office | Audiology | DarioElisabet ramires MS | | | 2019 | Visit | | [facility] [address] | | | | | [address] [place] | | | | | | [place], [place] [address] | | | | | | [phone] | | | | | | | | +--------+ + + + + | 12/20/ | Office | Otolaryngology | Ulysses Genao MD | | | 2019 | Visit | | [address] | | | | | | [address] [place], | | | | | | [place] [address] | | | | | | [phone] | | | | | | | | +--------+ + + + + documented as of this encounter Visit Diagnoses Not on filedocumented in this encounter"
--- OUTSIDE RECORDS SUMMARY | ~2019-10-16 | XMS | Encounter Summary ---
Demographics + + + | Address | [address] | | | [place] [address] | + + + | Home Phone [...] Providers + +------+ + | Care Tree And Shrub Technician Name | Role | Phone | + +------+ + | Pertona Thapa | PCP | | | MD | | | + +------+ + Encounter Details +--------+ + + + + | Date | Type | Department | Care Team | Description | +--------+ + + + + | 12/07/ | Abstract | [facility] | Alanis, | | | 2017 | | MEDICINE [address] | MD Petrona | | | | | [address] [facility] | [address] [facility] | | | | | [place] [address] | [place] [address] | | | | | [phone] | [phone] | | | | | | | [...] | | | | | [place] [address] | | | | | | [phone] | | | | | | | | +--------+ + + + + | 12/20/ | Office | Audiology | Elisabet Munson MS | | | 2019 | Visit | | [facility] [address] | | | | | | [address] [place] | | | | | | [place] [address] | | | | | | [phone] | | | | | | | | +--------+ + + + + | 12/20/ | Office | Otolaryngology | Ulysses Genao MD | | | 2020 | Visit | | [address] | | | | | | [address] [place], | | | | | | [place] [address] | | | | | | [phone] | | | | | | | [...]
--- OUTSIDE RECORDS SUMMARY | ~2019-10-16 | XMS | Encounter Summary ---
Demographics + + + | Address | [address] | | | [place] [address] | + + + | Home Phone [...] Providers + +------+ + | Care Engineer First Assistant Name | Role | Phone | [...] as of this encounter Progress Notes Interface, Flexboard Operator In - 01/12/2005 6:20 AM PDT JenniferBelinda garner [id number] MED REC NUMBER: [id number] NAME : Belinda Meehan DATE : 1960 DISCHARGE ASSESSMENT AND CASE MANAGEMENT NOTES Chart Reviewed: 2004-12-04 15:29:00 Drywall Finisher Foreman: Lou Jordan RN Preadmission living situation: family If facilty, name: Additional needs assessment: Case Management Initial Assessment and Ongoing Notes: 12/04/2004 15:29 Rec'd referral from IR printout. Pt presenti jen for panniculectomy per Dr. Chris Padgett 12/06/2004. ----- ------- Living Situation: Pt lives w/ her son, Sree in [place], [place]. Pt also has a caregiver from [employer] [facility] [employer] [facility] come in for 8-9 hours per day when her son is not home. Transportation: Pat w/ [employer] will take pt home (H) (C). Home Health: Pt has an RN from [employer] [facility] [employer] [facility] visit once a month for an assesment (H) or (C). Medical Equipment: Pt states that she has forearm crutches, a shower chair, and is working on getting hand bars installed into her shower. ---- Co-Morbidities: Panniculitis, s/p gastric bypass, arthritis, asthma, NIDDM, GERD, HTN, and sleep apnea. ------ Providers: PCP is Dr. Pedrito Gutierrez in [facility] and Dr. William Meeks [facility] metabolic disorder clinic. Narrative: Pt asked if [...] or concerns, [place]. [place] [address] documented i n this encounter Plan of Treatment Not on filedocumented as of this encounter Visit Diagnoses Not on filedocumented in this encounter"
--- OUTSIDE RECORDS SUMMARY | ~2019-10-16 | XMS | Encounter Summary ---
Demographics + + + | Address | [address] | | | [place] [address] | + + + | Home Phone [...] Team Providers + +------+ + | Care Instruction Assistant Principal Name | Role | Phone | [...] | - Disregard | | | | [facility] | | | | | | [address] | | | | | | Mailcode: CH15P | | | | | | [facility] | | | | | | and [place], | | | | | | [facility] | | | | | | [place], [place] | | | | | | [address] | | | | | | [phone] | | | +--------+ + + + [...]
--- OUTSIDE RECORDS SUMMARY | ~2019-10-16 | XMS | Encounter Summary ---
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 Diagnosis: Taylor I: 1. (296.32) Major depressive disorder, recurrent, moderate. 2. (309.24) Adjustment disorder with anxiety. 3. 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 Taylor II: Deferred Taylor III: abdominal pain, migraine headache, low back pain. Taylor IV: low finances Taylor V: GAF 55-60 Plan: Return with next medical follow-up appointment. Check mood, knee surgery, pacing, relaxati on, activity, distraction. Continue cognitive/behavioral therapy. Discuss need for further sessions. Total time spent with patient was approximately 45 minutes. LUKASZ CHARLES PHD [facility] [address] [facility], [address] [place] [address] documented in this encount er Plan of [...]
--- OUTSIDE RECORDS SUMMARY | ~2019-10-16 | XMS | Encounter Summary ---
Demographics + + + | Address | [address] | | | [place] [address] | + + + | Home Phone [...] Providers + +------+ + | Care Bridge Ironworker Name | Role | Phone | + [...] + | 03/27/ | Telephone | [facility] | Alanis, | Hip Pain | | 2016 | | MEDICINE [address] [place] [address] | MD Petrona | | | | | [facility] | [address] [place] [address] | | | | | [place] [address] | [place] [address] | | | | | [phone] | [phone] | | | | | | | [...] | | | | | [place] [address] | | | | | | [phone] | | | | | | | | +--------+ + + + + | 12/20/ | Office | Audiology | Elisabet Munson MS | | 2019 | Visit | | [facility] | | | | | [address] [place] | | | | | | [place] [address] | | | | | | [phone] | | | | | | | | +--------+ + + + + | 12/20/ | Office | Otolaryngology | Ulysses Genao MD | | | 2019 | Visit | | [address] | | | | | | [address] [place], | | | | | | [place] [address] | | | | | | [phone] | | | | | | | [...]
--- OUTSIDE RECORDS SUMMARY | ~2019-10-16 | XMS | Encounter Summary ---
Demographics + + + | Address | [address] | | | [place] [address] | + + + | Home Phone [...] Providers + +------+ + | Care Process Design Engineer Name | Role | Phone [...] + | 05/18/ | Refill | [facility] | Alanis, | Medication Refill | | 2016 | | MEDICINE [address] [place] [address] | MD Petrona | | | | | [facility] | [address] [place] [address] | | | | | [place] [address] | [place] [address] | | | | | [phone] | [phone] | | | | | | | [...] | | | | | [place] [address] | | | | | | [phone] | | | | | | | | +--------+ + + + + | 12/20/ | Office | Audiology | DarioElisabet ramires MS | | | 2019 | Visit | | [facility] [address] | | | | [address] [place] | | | | | | [place], [place] [address] | | | | | | [phone] | | | | | | | | +--------+ + + + + | 12/20/ | Office | Otolaryngology | Ulysses Genao MD | | | 2019 | Visit | | [address] | | | | | | [address] [place], | | | | | | [place] [address] | | | | | | [phone] | | | | | | | | +--------+ + + + + documented as of this encounter Visit Diagnoses Not on filedocumented in this encounter"
--- OUTSIDE RECORDS SUMMARY | ~2019-10-16 | XMS | Encounter Summary ---
Demographics + + + | Address | [address] | | | [place] [address] | + + + | Home Phone [...] Providers + +------+ + | Care Tank Maker Wood Name | Role | Phone | [...] of this encounter Progress Notes Interface, Radiological Technologist In - 02/19/2005 5:04 AM PDT [id number] [facility] Date: 01/17/2005 Clinic: General [...] with Dr. Dwaine Larson. She has a adk-knci-jwhdi lesion at the distal aspect of her [...] closure. Devin German M.D. Dwaine Larson M.D. [facility] / [id number] / [id number] / [id number] / [id number] Electronically signed by Dwaine Larson 02-18-2005 09:15:31 AM documented i n this encounter Plan of Treatment Not on filedocumented as of this encounter Visit Diagnoses Not on filedocumented in this encounter
--- OUTSIDE RECORDS SUMMARY | ~2019-10-16 | XMS | Encounter Summary ---
Demographics + + + | Address | [address] | | | [place] [address] | + + + | Home Phone [...] Team Providers + +------+ + | Care Magneto Specialist Name | Role | Phone | [...] as of this encounter Progress Notes Interface, Napping Machine Operator In - 08/19/2005 2:05 AM PST [id number] [facility] Date: 07/29/2005 Clinic: Hematology [...] pursue aggressive iron supplementation. Lukasz Sellers M.D. immigration attorney [employer] / SHARIF [id number] / [id number] / [id number] / [id number] cc: Pedrito Gutierrez M.D. [address] [place] [address] Electronically signed by Lukasz Sellers 08-18-2005 01:28:12 PM documented i n this encounter Plan of Treatment Not on filedocumented as of this encounter Visit Diagnoses Not on filedocumented in this encounter"
--- OUTSIDE RECORDS SUMMARY | ~2019-10-16 | XMS | Encounter Summary ---
Demographics + + + | Address | [address] | | | [place] [address] | + + + | Home Phone [...] + +------+ + | Care Human Resources Team Member Name | Role | Phone [...] | | | | | | [place], | | | | | | | [place] | | | | | | | [address] | | | | | | | Phone: | | | | | | | [phone] | | | | | | | Fax: | | | | | | | [phone] | +--------+--------+ + + + + Encounter Details +--------+---------+ + + + | Date | Type | Department | Care Team | Description | +--------+---------+ + + + | 07/10/ | Office | Digestive Health | Eliezer Ruano, | Abdominal Pain, | | 2008 | Visit | [place] [address] | [address] | dumping syndrome Hx | | | | Ave Mailcode: CH4S | [address] | of gastric bypass | | | | [facility] | [place], [place] | (Primary Dx) | | | | and Healing, | [address] | | | | | Building | [phone] | | | | | Floor [place], [place] | | | | | | [address] | | | | | | [phone] | | | +--------+---------+ + + + [...] and plan of care. ELIEZER RUANO MD [address] Mailcode: [place] [address] Yuriy Mayo MD - 06/16 [...] (Ciprofloxacin) Tramadol Morphine IM ( only in [facility]) made gut pain worse 08/27/06: [...] 300 mg) by oral route once daily rvzkoezquk-vhendwigkokxu-lthvehkc (FIORICET) 50-325-40 mg Oral Tablet take 2 [...] 278 01/18 Paniculectomy Hx lumbar fusion 05/2008 [id number] with bone spur removals Review of Systems: [...]
--- OUTSIDE RECORDS SUMMARY | ~2019-10-16 | XMS | Encounter Summary ---
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 Epidural steroid injections are awhile call to schedule with Dr. Kylah SHEEHAN. documented in this encounter Progress Notes Delfina Molina - 06/28/2007 8:56 AM PSTFormatting of this note might be different from th e original. 06/28/2007 Belinda Meehan is a 47 y.o. female [facility] Return Visit Chief Complaint: [...] be in bed so long. Son primary child care team lead. Current outpatient medications Medication Sig Dispense Refill [...] Collection Time Resulting Agency 05/25/2007 4:06 PM [facility] DEPARTMENT OF RADIOLOGY Component Results MR CERVICAL [...] CENTER PAIN CENTER Mail code CH 4P [facility] [address] [facility] [address] Ailyn Bello 06/28/19 08 [...]
--- OUTSIDE RECORDS SUMMARY | ~2019-10-16 | XMS | Encounter Summary ---
Demographics + + + | Address | [address] | | | [place] [address] | + + + | Home Phone [...] Providers + +------+ + | Care Senior Electrical Project Manager Name | Role | Phone [...] [id number] | | | | | | [place], [place] | | | | | | [address] | | | | | | [phone] | | | +--------+ + + + [...]
--- OUTSIDE RECORDS SUMMARY | ~2019-10-16 | XMS | Encounter Summary ---
Demographics + + + | Address | [address] | | | [place] [address] | + + + | Home Phone [...] | | | Clinical Nutrition | [place], [place] | | | | | [address] | [address] | | | | | Loop Mailcode: [id number] | [phone] | | | | | Outpatient Clinic | | | | | | [facility], | | | | | | [place] [address] | | | | | | [phone] | | | +--------+ + + + [...]
--- OUTSIDE RECORDS SUMMARY | ~2019-10-16 | XMS | Encounter Summary ---
Demographics + + + | Address | [address] | | | [place] [address] | + + + | Home Phone [...] Providers + +------+ + | Care Needle Bar Molder Name | Role | Phone | [...] + + | 10/07/ | Telephone | [facility] | Alanis, | Hip Pain | | 2017 | | MEDICINE [address] [place] [address] | MD Petrona | | | | | [facility] | [address] [place] [address] | | | | | [place] [address] | [place] [address] | | | | | [phone] | [phone] | | | | | | | [...] | | | | | [place] [address] | | | | | | [phone] | | | | | | | | +--------+ + + + + | 12/20/ | Office | Audiology | Elisabet Munson MS | | 2019 | Visit | | [facility] | | | | | [address] [place] | | | | | | [place] [address] | | | | | | [phone] | | | | | | | | +--------+ + + + + | 12/20/ | Office | Otolaryngology | Ulysses Genao MD | | | 2020 | Visit | | [address] | | | | | | [address] [place], | | | | | | [place] [address] | | | | | | [phone] | | | | | | | | +--------+ + + + + documented as of this encounter Visit Diagnoses Not on filedocumented in this encounter"
--- OUTSIDE RECORDS SUMMARY | ~2019-10-16 | XMS | Encounter Summary ---
Demographics + + + | Address | [address] | | | [place] [address] | + + + | Home Phone [...] Providers + +------+ + | Care Director Prison Name | Role | Phone | + [...] Rd | | | | | | [place], [place] | | | | | | [address] | | | +--------+ + + + [...]
--- OUTSIDE RECORDS SUMMARY | ~2019-10-16 | XMS | Encounter Summary ---
Demographics + + + | Address | [address] | | | [place] [address] | + + + | Home Phone [...] Team Providers + +------+ + | Care Transfusion Nurse Name | Role | Phone | [...] + + | 11/23/ | Telephone | [facility] | Luther Brito MD | Other | | 2018 | | GASTROENTEROLOGY | [address] [facility] | | | | | [address] [facility] | [place], [place] | | | | | [address] [place], [place] | [address] | | | | | [address] | [phone] | | | | | [phone] | | | +--------+ + + + [...] | | | | | [place] [address] | | | | | | [phone] | | | | | | | | +--------+ + + + + | 12/20/ | Office | Audiology | Elisabet Munson MS | | 2019 | Visit | | [facility] [address] | | | | | | [address] | | | | | | [place] [address] | | | | | | [phone] | | | | | | | | +--------+ + + + + | 12/20/ | Office | Otolaryngology | Ulysses Genao MD | | | 2019 | Visit | | [address] | | | | | | [address] [place], | | | | | | [place] [address] | | | | | | [phone] | | | | | | | | +--------+ + + + + documented as of this encounter Visit Diagnoses Not on filedocumented in this encounter"
--- OUTSIDE RECORDS SUMMARY | ~2019-10-16 | XMS | Encounter Summary ---
Demographics + + + | Address | [address] | | | [place] [address] | + + + | Home Phone [...] Providers + +------+ + | Care Glue Plant Operator Name | Role | Phone [...] | | | | Clinical Nutrition | [place], [place] | | | | | [address] | [address] | | | | | Loop Mailcode: OPC5 | [phone] | | | | | Outpatient Clinic | | | | | | [facility], | | | | | | [place] [address] | | | | | | [phone] | | | +--------+ + + + [...]
--- OUTSIDE RECORDS SUMMARY | ~2019-10-16 | XMS | Encounter Summary ---
Demographics + + + | Address | [address] | | | [place] [address] | + + + | Home Phone [...] Providers + +------+ + | Care Rivet Hole Machine Operator Name | Role | Phone [...] Abdominal pain | | 2005 | | [address] | | | | | | [address] | | | | | | Mailcode: [id number] | | | | | | Physician's [place] | | | | | | [place], [place] | | | | | | [address] | | | | | | [phone] | | | +--------+ + + + [...]
--- OUTSIDE RECORDS SUMMARY | ~2019-10-16 | XMS | Encounter Summary ---
Demographics + + + | Address | [address] | | | [place] [address] | + + + | Home Phone [...] + +------+ + | Care Washing Machine Loader And Puller Name | Role | Phone | [...] Rd | Urologist) | | | | [facility] | [place], [place] | | | | | and [place], | [address] | | | | | [facility] | [phone] | | | | | [place], [place] | | | | | | [address] | | | | | | [phone] | | | +--------+ + + + [...]
--- OUTSIDE RECORDS SUMMARY | ~2019-10-16 | XMS | Encounter Summary ---
Demographics + + + | Address | [address] | | | [place] [address] [...] Providers + +------+ + | Care Director Employee Communications Name | Role | Phone | [...] Required | | | i, | [address] | | | | | osteoporosis | Sulaiman-Ivány | [place], | | | | | without | , MD [address] | [place] [address] | | | | | current | [address] | Phone: | | | | | pathological | [place], | [phone] | | | | | fracture | [place] | Fax: | | | | | | [address] | [phone] | | | | | | Phone: | | | | | | | [phone] | | | | | | | Fax: | | | | | | | [phone] | | +--------+ + + + + [...] Required | | | i, | [address] | | | | | osteoporosis | Sulaiman-Russell | [place], | | | | | without | , MD [address] | [place] [address] | | | | | current | [address] | Phone: | | | | | pathological | [place], | [phone] | | | | | fracture | [place] | Fax: | | | | | | [address] | [phone] | | | | | | Phone: | | | | | | | [phone] | | | | | | | Fax: | | | | | | | [phone] | | +--------+ + + + + + Encounter Details +--------+ + + + + | Date | Type | Department | Care Team | Description | +--------+ + + + + | 10/14/ | Hospital | [facility] | Alanis, | Age-related | | 2019 | Encounter | MED CTR OP INFUSION | MD Petrona | osteoporosis without | | | | [address] | [address] [facility] | current | | | | [place] | [place] [address] | pathological | | | | [address] | [phone] | fracture (Primary | | | | [phone] | | Dx) | +--------+ + + [...] | | | | | [place] [address] | | | | | | [phone] | | | | | | | | +--------+ + + + + | 12/20/ | Office | Audiology | Elisabet Munson MS | | | 2019 | Visit | | [facility] [address] | | | | | | [address] [place] | | | | | | [place] [address] | | | | | | [phone] | | | | | | | | +--------+ + + + + | 12/20/ | Office | Otolaryngology | Ulysses Genao MD | | | 2019 | Visit | | [address] | | | | | | [address] [place], | | | | | | [place] [address] | | | | | | [phone] | | | | | | | [...]
--- OUTSIDE RECORDS SUMMARY | ~2019-10-16 | XMS | Encounter Summary ---
Demographics + + + | Address | [address] | | | [place] [address] | + + + | Home Phone [...] Team Providers + +------+ + | Care Shower Room Attendant Name | Role | Phone [...] [id number] | | | | | | [place], [place] | | | | | | [address] | | | | | | [phone] | | | +--------+ + + + [...]
--- OUTSIDE RECORDS SUMMARY | ~2019-10-16 | XMS | Encounter Summary ---
Demographics + + + | Address | [address] | | | [place] [address] | + + + | Home Phone [...] Team Providers + +------+ + | Care Faculty Physician Name | Role | Phone | [...] | | | | [id number] Physician's | [place], [place] | | | | | [address] | [address] | | | | | [place], [place] | [phone] | | | | | [address] | | | | | | [phone] | | | +--------+ + + + [...]
--- OUTSIDE RECORDS SUMMARY | ~2019-10-16 | XMS | Encounter Summary ---
[...] Providers + +------+ + | Care Display Card Writer Name | Role | Phone | + +------+ + PCP | Unavailable | + +------+ + Encounter Details +--------+ + + + + | Date | Type | Department | Care Team | Description | +--------+ + + + + | 12/21/ | Results | Rheumatology | Caitlin Rivera, | | | 2003 | Only | [place] [address] | WELFARE ADVISER | | | | | [place] | | | | | | Mailcode: OPC5 | | | | | | Outpatient Clinic | | | | | | Building [facility] | | | | | | [place] [address] | | | | | | [phone] | | | +--------+ + + + [...] Iron and TIBC, Serum Test performed by [facility] | | | [facility]. | | + + + + + + + + | Performing | Address | City/State/Zipcode | Phone Number | | Organization | | | | + + + + + | [facility] | [address] | [place] [address] | | | LABORATORY | | | [...] | + + + + + | [facility] | [address] | [place] [address] | | | LABORATORY | | | [...] | | | | | performed at [place] | | | | | | [facility] | | | | | | Laboratory | | | | + + + + + + + + | Specimen | + + | | + + + + + + + | Performing | Address | City/State/Zipcode | Phone Number | | Organization | | | | + + + + + | [facility] | [address] | [place] [address] | | | LABORATORY | | | | + + + + + documented in this encounter Visit Diagnoses Not on filedocumented in this encounter"
--- OUTSIDE RECORDS SUMMARY | ~2019-10-16 | XMS | Encounter Summary ---
Demographics + + + | Address | [address] | | | [place] [address] | + + + | Home Phone [...] + | 08/23/ | Refill | [facility] | Alanis, | Medication Refill | | 2017 | | MEDICINE [address] [place] [address] | MD Petrona | | | | | [facility] | [address] [place] [address] | | | | | [place] [address] | [place] [address] | | | | | [phone] | [phone] | | | | | | | [...] | | | | | [place] [address] | | | | | | [phone] | | | | | | | | +--------+ + + + + | 12/20/ | Office | Audiology | DarioElisabet ramires MS | | | 2019 | Visit | | [facility] [address] | | | | | [address] [place] | | | | | | [place], [place] [address] | | | | | | [phone] | | | | | | | | +--------+ + + + + | 12/20/ | Office | Otolaryngology | Ulysses Genao MD | | | 2019 | Visit | | [address] | | | | | | [address] [place], | | | | | | [place] [address] | | | | | | [phone] | | | | | | | | +--------+ + + + + documented as of this encounter Visit Diagnoses Not on filedocumented in this encounter"
--- OUTSIDE RECORDS SUMMARY | ~2019-10-16 | XMS | Encounter Summary ---
Demographics + + + | Address | [address] | | | [place] [address] | + + + | Home Phone [...] Providers + +------+ + | Care Student Development Advisor Name | Role | Phone | [...] | and counseling | | | | [facility] | [place], [place] | (08/28/08 Lab | | | | and Healing, | [address] | results) | | | | [place] [address] [facility] | [phone] | | | | | [place], [place] | | | | | | [address] | | | | | | [phone] | | | +--------+ + + + [...]
--- OUTSIDE RECORDS SUMMARY | ~2019-10-16 | XMS | Encounter Summary ---
Demographics + + + | Address | [address] | | | [place] [address] | + + + | Home Phone [...] | Registratio | [facility] | [address] | | | | n | [place] Mailcode: [id number] | [place], [place] | | | | | [place] | [address] | | | | | [address] | [phone] | | | | | [phone] | | | +--------+ + + + [...] | [facility] | [address] | [place] [address] | | | LABORATORY | | | [...] [address] | | | | | | [facility] Andrew, [facility] [place] | | | | | | [address] | | | | | | [phone]. | | | | | | Sincere [...] [facility] | [address] | [place], [place] | | | [facility] | | [address] | | + + + + + documented in this encounter Visit Diagnoses Not on filedocumented in this encounter"
--- OUTSIDE RECORDS SUMMARY | ~2019-10-16 | XMS | Encounter Summary ---
Demographics + + + | Address | [address] | | | [place] [address] | + + + | Home Phone [...] + | 05/14/ | Telephone | [facility] | Erich Conley MD | Medication Refill | | 2018 | | MEDICINE [address] [place] [address] | [address] [facility] | | | | | Street [facility] | [place] | | | | | [place] [address] | [address] | | | | | [phone] | | | +--------+ + + + [...] | | | | | [place] [address] | | | | | | [phone] | | | | | | | | +--------+ + + + + | 12/20/ | Office | Audiology | Elisabet Munson MS | | | 2019 | Visit | | [facility] [address] | | | | | [address] [place] | | | | | | [place], [place] [address] | | | | | | [phone] | | | | | | | | +--------+ + + + + | 12/20/ | Office | Otolaryngology | Ulysses Genao MD | | | 2019 | Visit | | [address] | | | | | | [address] [place], | | | | | | [place] [address] | | | | | | [phone] | | | | | | | | +--------+ + + + + documented as of this encounter Visit Diagnoses Not on filedocumented in this encounter"
--- OUTSIDE RECORDS SUMMARY | ~2019-10-16 | XMS | Encounter Summary ---
Demographics + + + | Address | [address] | | | [place] [address] | + + + | Home Phone [...] Providers + +------+ + | Care Golf Superintendent Name | Role | Phone | + +------+ + | Maria Esther Cintron MD | PCP | | + +------+ + Encounter Details +--------+ + + + + | Date | Type | Department | Care Team | Description | +--------+ + + + + | 04/19/ | Telephone | [facility] | Chris Padgett, | | | 2007 | | [place] [address] | [address] [facility] | | | | | [place] Mailcode: CH4S | Naeem Mcrae | | | | | [facility] | [place], [place] | | | | | and Healing, | [address] | | | | | Building , 6th | [phone] | | | | | Floor [place], [place] | | | | | | [address] | | | | | | [phone] | | | +--------+ + + + [...]
--- OUTSIDE RECORDS SUMMARY | ~2019-10-16 | XMS | Encounter Summary ---
Demographics + + + | Address | [address] | | | [place] [address] | + + + | Home Phone [...] + + | 06/24/ | Telephone | [facility] | Alanis, | Medication Orders | | 2018 | | MEDICINE [address] [place] [address] | MD Petrona | | | | | [facility] | [address] [place] [address] | | | | | [place] [address] | [place] [address] | | | | | [phone] | [phone] | | | | | | | [...] | | | | | [place] [address] | | | | | | [phone] | | | | | | | | +--------+ + + + + | 12/20/ | Office | Audiology | Dariokeyla MS Elisabet | | | 2019 | Visit | | [facility] [address] | | | | | [address] [place] | | | | | | [place] [address] | | | | | | [phone] | | | | | | | | +--------+ + + + + | 12/20/ | Office | Otolaryngology | Ulysses Genao MD | | | 2019 | Visit | | [address] | | | | | | [address] [place], | | | | | | [place] [address] | | | | | | [phone] | | | | | | | | +--------+ + + + + documented as of this encounter Visit Diagnoses Not on filedocumented in this encounter"
--- OUTSIDE RECORDS SUMMARY | ~2019-10-16 | XMS | Encounter Summary ---
Demographics + + + | Address | [address] | | | [place] [address] | + + + | Home Phone [...] + +------+ + | Care Commercial Loan Specialist Name | Role | Phone | [...] | 2006 | TRANSCRIPTI | [facility] [employer] | [address] [facility] | QUESTIONNAIRE | | | ON | for Health and | [facility], [place] | | | | | Healing [address] | [address] | | | | | [place] Mailcode: | [phone] | | | | | CH12A [facility] | | | | | | Health and Healing, | | | | | | [facility] | | | | | | [place], [place] | | | | | | [address] | | | | | | [phone] | | | +--------+ + + + [...]
--- OUTSIDE RECORDS SUMMARY | ~2019-10-16 | XMS | Encounter Summary ---
Demographics + + + | Address | [address] | | | [place] [address] | + + + | Home Phone [...] Team Providers + +------+ + | Care Genomics Scientist Name | Role | Phone | [...] + + | 09/01/ | Telephone | [facility] | Alanis, | Sinus Pain | | 2019 | | MEDICINE [address] [place] [address] | MD Petrona | | | | | [facility] | [address] [place] [address] | | | | | [place] [address] | [place] [address] | | | | | [phone] | [phone] | | | | | | | [...] | | | | | [place] [address] | | | | | | [phone] | | | | | | | | +--------+ + + + + | 12/20/ | Office | Audiology | Elisabet Munson MS | | 2019 | Visit | | [facility] | | | | | [address] [place] | | | | | | [place] [address] | | | | | | [phone] | | | | | | | | +--------+ + + + + | 12/20/ | Office | Otolaryngology | Ulysses Genao MD | | | 2020 | Visit | | [address] | | | | | | [address] [place], | | | | | | [place] [address] | | | | | | [phone] | | | | | | | | +--------+ + + + + documented as of this encounter Visit Diagnoses Not on filedocumented in this encounter"
--- OUTSIDE RECORDS SUMMARY | ~2019-10-16 | XMS | Encounter Summary ---
Demographics + + + | Address | [address] | | | [place] [address] | + + + | Home Phone [...] Team Providers + +------+ + | Care Bicycle Inspector Name | Role | Phone | [...] [id number] | | | | | | [facility] | | | | | | and Healing, | | | | | | Building | | | | | | Floor [place], [place] | | | | | | [address] | | | | | | [phone] | | | +--------+ + + + [...]
--- OUTSIDE RECORDS SUMMARY | ~2019-10-16 | XMS | Encounter Summary ---
Demographics + + + | Address | [address] | | | [place] [address] | + + + | Home Phone [...] Providers + +------+ + | Care Pigment Making Supervisor Name | Role | Phone [...] CH4S | | | | | | [facility] | | | | | | and Healing, | | | | | | Building 1, 6th | | | | | | Floor [place], [place] | | | | | | [address] | | | | | | [phone] | | | +--------+ + + + [...]
--- OUTSIDE RECORDS SUMMARY | ~2019-10-16 | XMS | Encounter Summary ---
Demographics + + + | Address | [address] | | | [place] [address] | + + + | Home Phone [...] Providers + +------+ + | Care Aircraft Tool Maker Name | Role | Phone | [...] | | | | Clinical Nutrition | [place], [place] | | | | | [address] | [address] | | | | | Loop Mailcode: OPC5 | [phone] | | | | | Outpatient Clinic | | | | | | [facility] | | | | | | [place] [address] | | | | | | [phone] | | | +--------+ + + + [...] Test performed by | | | [facility]. | | + + + + + + + + | Performing | Address | City/State/Zipcode | Phone Number | | Organization | | | | + + + + + | [facility] | [address] | [place] [address] | | | LABORATORY | | | [...] + + + | [facility] | [address] | [place] [address] | | | LABORATORY | | | | + + + + + documented in this encounter Visit Diagnoses Not on filedocumented in this encounter"
--- OUTSIDE RECORDS SUMMARY | ~2019-10-16 | XMS | Encounter Summary ---
Demographics + + + | Address | [address] | | | [place] [address] | + + + | Home Phone [...] Providers + +------+ + | Care Cheese Maker Name | Role | Phone [...] + | 05/18/ | Refill | [facility] | Alanis, | Medication Refill | | 2016 | | MEDICINE [address] [place] [address] | MD Petrona | | | | | [facility] | [address] [place] [address] | | | | | [place] [address] | [place] [address] | | | | | [phone] | [phone] | | | | | | | [...] | | | | | [place] [address] | | | | | | [phone] | | | | | | | | +--------+ + + + + | 12/20/ | Office | Audiology | DarioElisabet ramires MS | | | 2019 | Visit | | [facility] [address] | | | | | [address] [place] | | | | | | [place], [place] [address] | | | | | | [phone] | | | | | | | | +--------+ + + + + | 12/20/ | Office | Otolaryngology | Ulysses Genao MD | | | 2019 | Visit | | [address] | | | | | | [address] [place], | | | | | | [place] [address] | | | | | | [phone] | | | | | | | | +--------+ + + + + documented as of this encounter Visit Diagnoses Not on filedocumented in this encounter"
--- OUTSIDE RECORDS SUMMARY | ~2019-10-16 | XMS | Encounter Summary ---
Demographics + + + | Address | [address] | | | [place] [address] | + + + | Home Phone [...] Providers + +------+ + | Care Circus Agent Name | Role | Phone | [...] + + | 05/14/ | Telephone | [facility] | Erich Conley MD | Medication Refill | | 2018 | | MEDICINE [address] [place] [address] | [address] [facility] | | | | | [facility] | [place] | | | | | [facility] [address] | [address] | | | | | [phone] | | | +--------+ + + + [...] | | | | | | [address] [facility] | | | | | | [place] [address] | | | | | | [phone] | | | | | | | | +--------+ + + + + | 12/20/ | Office | Audiology | Elisabet Munson MS | | | 2019 | Visit | | [facility] [address] | | | | [address] [place] | | | | | | [place], [place] [address] | | | | | | [phone] | | | | | | | | +--------+ + + + + | 12/20/ | Office | Otolaryngology | Ulysses Genao MD | | | 2019 | Visit | | [address] | | | | | | [address] [place], | | | | | | [place] [address] | | | | | | [phone] | | | | | | | | +--------+ + + + + documented as of this encounter Visit Diagnoses Not on filedocumented in this encounter"
--- OUTSIDE RECORDS SUMMARY | ~2019-10-16 | XMS | Encounter Summary ---
Demographics + + + | Address | [address] | | | [place] [address] | + + + | Home Phone [...] Providers + +------+ + | Care Supervisor Floor Assembly Name | Role | Phone | [...] Naeem Mcrae | | | | | [facility] | [place], [place] | | | | | and Healing, | [address] | | | | | [facility], [facility] | [phone] | | | | | Floor [place], [place] | | | | | | [address] | | | | | | [phone] | | | +--------+ + + + [...]
--- OUTSIDE RECORDS SUMMARY | ~2019-10-16 | XMS | Encounter Summary ---
Demographics + + + | Address | [address] | | | [place] [address] | + + + | Home Phone [...] Team Providers + +------+ + | Care Garde Manager Name | Role | Phone | [...] as of this encounter Progress Notes Interface, Balloon Dipper In - 01/12/2005 10:09 AM PDT [id number] [facility] Date: 12/25/2004 Clinic: GENERAL [...] will send an emergency supply fax to [facility] at fax #[phone], first 30 pills, oxycodone 5 mg to [...] the current plan. Melisa Thorne / SHARIF [id number] / [id number] / [id number] / [id number] Electronically signed by Kenisha Melton 01-01-2005 04:41:20 PM documented i n this encounter Plan of Treatment Not on filedocumented as of this encounter Visit Diagnoses Not on filedocumented in this encounter"
--- OUTSIDE RECORDS SUMMARY | ~2019-10-16 | XMS | Encounter Summary ---
Demographics + + + | Address | [address] | | | [place] [address] | + + + | Home Phone [...] Providers + +------+ + | [employer] Name | Role | Phone | [...] + + | 08/03/ | Telephone | [facility] | Alanis, | Personal Problem | | 2019 | | MEDICINE [address] [place] [address] | MD [place] | (Rash in private | | | | [facility] | [address] [facility] | [facility]) | | | | [place] [address] | [place] [address] | | | | | [phone] | [phone] | | | | | | | [...] | | | | | [place] [address] | | | | | | [phone] | | | | | | | | +--------+ + + + + | 12/20/ | Office | Audiology | Elisabet Munson MS | | | 2019 | Visit | | [facility] [address] | | | | | | [address] [place] | | | | | | [place], [place] [address] | | | | | | [phone] | | | | | | | | +--------+ + + + + | 12/20/ | Office | Otolaryngology | Ulysses Genao MD | | | 2019 | Visit | | [address] | | | | | | [address] [place], | | | | | | [place] [address] | | | | | | [phone] | | | | | | | | +--------+ + + + + documented as of this encounter Visit Diagnoses Not on filedocumented in this encounter"
--- OUTSIDE RECORDS SUMMARY | ~2019-10-16 | XMS | Encounter Summary ---
Demographics + + + | Address | [address] | | | [place] [address] | + + + | Home Phone [...] Providers + +------+ + | Care Agronomy Professor Name | Role | Phone | [...] Naeem Mcrae | | | | | [facility] | [place], [place] | | | | | and Healing, | [address] | | | | | [facility] [address] [facility] | [phone] | | | | | Floor [place], [place] | | | | | | [address] | | | | | | [phone] | | | +--------+ + + + [...]
--- OUTSIDE RECORDS SUMMARY | ~2019-10-16 | XMS | Encounter Summary ---
Demographics + + + | Address | [address] | | | [place] [address] | + + + | Home Phone [...] Providers + +------+ + | Care Parts Runner Name | Role | Phone | [...] | | | | Sara Kovacs | [facility] | | | | | Mailcode: Center | [place] [address] | | | | | for Health and | [phone] | | | | | Healing, [address] | | | | | | [place], [place] | | | | | | [address] | | | | | | [phone] | | | +--------+ + + + [...]
--- OUTSIDE RECORDS SUMMARY | ~2019-10-16 | XMS | Encounter Summary ---
Demographics + + + | Address | [address] | | | [place] [address] | + + + | Home Phone [...] + +------+ + | Care Product Development Manager Name | Role | [...] | | | Metabolism | bypass | [address] | [address] | | | | | Hypovitamino | [address], | Ave | | | | | sis D B12 | [address] | [place], [place] | | | | | nutritional | [place] | [address] | | | | | deficiency | [address] | Phone: | | | | | Other | Phone: | [phone] | | | | | protein-jose manuel | [phone] | Fax: | | | | | nick | Fax: | [phone] | | | | | malnutrition | [phone] | | | | | | Weight | | | | | | | gain | | | | | | | Procedures | | | | | | | CONSULT TO | | | | | | | ENDO | | | | | | | [address] | | | | | | | [address] | | | +--------+--------+ + + + [...] | | | [facility] | [place], [place] | Dx); Hypothyroidism; | | | | [address] | [address] | Essential | | | | [address] | [phone] | hypertension 401.9; | | | | [facility] | | Fibromyalgia | | | | Physician's | | syndrome 729.1 | | | | Pavilion [place], | | | | | | [place] [address] | | | | | | [phone] | | | +--------+---------+ + + + [...] Hives Mainly in the legs Clindamycin Codeine Qcncbxs-Iyrfytfkew-Vad-Caff Balance problems Fioricet W/Codeine (Khuekrsqzo-Xrnefrpjtr-Inm-Cod) Keflex (Cephalexin) Morphine IM ( only in [facility]) made gut pain worse 08/27/06: [...] U/L 41 ANION GAP 8 VITAMIN B12, [id number] pg/ml >2000 (H) HEMOGLOBIN A1C <=5.6 % [...] SERUM 15.0-85.0 pg/ml 222.9 (H) VITAMIN B12, [id number] pg/ml > 2000 HEMOGLOBIN A1C <=5.6 % [...]
--- OUTSIDE RECORDS SUMMARY | ~2019-10-16 | XMS | Encounter Summary ---
[...] + +------+ + | Care Mica Miner Name | Role | Phone | [...] | | | | Clinical Nutrition | [place], [place] | | | | | [address] | [address] | | | | | Loop Mailcode: OPC5 | [phone] | | | | | Outpatient Clinic | | | | | | [facility] | | | | | | [place] [address] | | | | | | [phone] | | | +--------+ + + + [...] | [facility] DEPARTMENT OF | [address] | [place] [address] | | | PATHOLOGY | [address] | | | + + + + + | [facility] DEPARTMENT OF | [address] | [place] [address] | | | PATHOLOGY | [address] [...] | [facility] | [address] | [place] [address] | | | PATHOLOGY | [address] | | | + + + + + | [facility] | [address] | [place] [address] | | | PATHOLOGY | [address] | | | + + + + + documented in this encounter Visit Diagnoses Not on filedocumented in this encounter"
--- OUTSIDE RECORDS SUMMARY | ~2019-10-16 | XMS | Encounter Summary ---
Demographics + + + | Address | [address] | | | [place] [address] | + + + | Home Phone [...] Providers + +------+ + | Care Risk Mgr Name | Role | Phone | [...] + | 10/11/ | Refill | [facility] | Alanis, | Medication Refill | | 2019 | | MEDICINE [address] | MD Petrona | | | | | [facility] | [address] [place] [address] | | | | | [place] [address] | [place] [address] | | | | | [phone] | [phone] | | | | | | | [...] | | | | | [place] [address] | | | | | | [phone] | | | | | | | | +--------+ + + + + | 12/20/ | Office | Audiology | DarioElisabet ramires MS | | | 2019 | Visit | | [facility] [address] | | | | | | [address] [place] | | | | | | [place], [place] [address] | | | | | | [phone] | | | | | | | | +--------+ + + + + | 12/20/ | Office | Otolaryngology | Ulysses Genao MD | | | 2019 | Visit | | [address] | | | | | | [address] [place], | | | | | | [place] [address] | | | | | | [phone] | | | | | | | | +--------+ + + + + documented as of this encounter Visit Diagnoses Not on filedocumented in this encounter"
--- OUTSIDE RECORDS SUMMARY | ~2019-10-16 | XMS | Encounter Summary ---
Demographics + + + | Address | [address] | | | [place] [address] | + + + | Home Phone [...] Pain | | 2019 | | MEDICINE [address] [place] [address] | MD Petrona | | | | | [facility] | [address] [place] [address] | | | | | [place] [address] | [place] [address] | | | | | [phone] | [phone] | | | | | | | [...] | | | | | [place] [address] | | | | | | [phone] | | | | | | | | +--------+ + + + + | 12/20/ | Office | Audiology | Elisabet Munson MS | | 2019 | Visit | | [facility] [address] | | | | | | [address] [place] | | | | | | [place] [address] | | | | | | [phone] | | | | | | | | +--------+ + + + + | 12/20/ | Office | Otolaryngology | Ulysses Genao MD | | | 2020 | Visit | | [address] | | | | | | [address] [place], | | | | | | [place] [address] | | | | | | [phone] | | | | | | | | +--------+ + + + + documented as of this encounter Visit Diagnoses Not on filedocumented in this encounter"
--- OUTSIDE RECORDS SUMMARY | ~2019-10-16 | XMS | Encounter Summary ---
Demographics + + + | Address | [address] | | | [place] [address] | + + + | Home Phone [...] Providers + +------+ + | Care Night Stocker Name | Role | Phone | [...] [id number] | | | | | | [place], [place] | | | | | | [address] | | | | | | [phone] | | | +--------+--------+ + + + [...]
--- OUTSIDE RECORDS SUMMARY | ~2019-10-16 | XMS | Encounter Summary ---
Demographics + + + | Address | [address] | | | [place] [address] | + + + | Home Phone [...] Team Providers + +------+ + | Care Spline Rolling Machine Job Setter Name | Role | Phone | [...] + + | 09/14/ | Telephone | [facility] | Alanis, | Referral | | 2017 | | MEDICINE [address] [place] [address] | MD Petrona | | | | | [facility] | [address] [place] [address] | | | | | [place] [address] | [place] [address] | | | | | [phone] | [phone] | | | | | | | [...] | | | | | [place] [address] | | | | | | [phone] | | | | | | | | +--------+ + + + + | 12/20/ | Office | Audiology | Elisabet Munson MS | | 2019 | Visit | | [facility] [address] | | | | | | [address] [place] | | | | | | [place] [address] | | | | | | [phone] | | | | | | | | +--------+ + + + + | 12/20/ | Office | Otolaryngology | Ulysses Genao MD | | | 2020 | Visit | | [address] | | | | | | [address] [place], | | | | | | [place] [address] | | | | | | [phone] | | | | | | | | +--------+ + + + + documented as of this encounter Visit Diagnoses Not on filedocumented in this encounter"
--- OUTSIDE RECORDS SUMMARY | ~2019-10-16 | XMS | Encounter Summary ---
Demographics + + + | Address | [address] | | | [place] [address] | + + + | Home Phone [...] Team Providers + +------+ + | Care Combine Inspector Name | Role | Phone | [...] [facility] | [address] [facility] | Myelopathy, Lumbar | | | | [address] [place], | Region; Neck Pain; | | | | [address] [place] Mailcode: | [place] [address] | Herniated Lumbar | | | | [facility] | | Intervertebral Disc | | | | [facility] and Healing, | | L4-5; Fibromyalgia | | | | Building | | syndrome 729.1; NO | | | | Floor [place], [place] | | DIAGNOSIS RECEIVED | | | | [address] | | | | | | [phone] | | | +--------+---------+ + + + [...] Date: December 02, 2006 Patient: Belinda Meehan, [id number], 1960 I agree with the proposed Physical Therapy Treatment Plan. Provider: DELFINA BUNDY elfina Molina - 007 11:31 AM PDTThis encounter was opened in error. Please disregard this note. athalia Arora - 007 12:26 PM PDT PROGRESS NOTE: Physical Therapy Medicare Progress Note Date: 10/07/2006 Belinda Meehan [id number]. 1960 Start of Care: 06/23/2006 Referring Provider: [...] dial meniscal tear. Patient continues walking at [employer] on a daily basis, (when she is no t in [place] for appts), 30-40 minutes, and her HEP [...] ended: 115 Nathalia Arora, Physical Therapist License #[id number] documented in this encoun ter Plan of [...]
--- OUTSIDE RECORDS SUMMARY | ~2019-10-16 | XMS | Encounter Summary ---
Demographics + + + | Address | [address] | | | [place] [address] | + + + | Home Phone [...] Team Providers + +------+ + | Care Condenser Tube Tender Name | Role | Phone | [...] this encounter Progress Notes Interface, Termite Exterminator Helper In - 12/09/2005 2:08 AM PDT [id number] GEOVANNI Barnes [id number] Clinic Date: 11/26/2005 Clinic: General Surgery Clinic [...] with extensive workup. Prescription picked up at [facility] on November 25, 2005, for 50 oxycodone 5 mg. Melisa Thorne / SHARIF [id number] / [id number] / [id number] / [id number] Electronically signed by Kenisha Melton 12-05-2005 08:28:34 PM documented i n this encounter Plan of Treatment Not on filedocumented as of this encounter Visit Diagnoses Not on filedocumented in this encounter"
--- OUTSIDE RECORDS SUMMARY | ~2019-10-16 | XMS | Encounter Summary ---
Demographics + + + | Address | [address] | | | [place] [address] | + + + | Home Phone [...] Providers + +------+ + | Care Track Layer Name | Role | Phone | [...] + + | 05/26/ | Telephone | [facility] | [place], | Diarrhea | | 2018 | | MEDICINE [address] [place] [address] | MD Petrona | | | | | [facility] | [address] [place] [address] | | | | | [place] [address] | [place] [address] | | | | | [phone] | [phone] | | | | | | | [...] | | | | | [place] [address] | | | | | | [phone] | | | | | | | | +--------+ + + + + | 12/20/ | Office | Audiology | Elisabet Munson MS | | 2019 | Visit | | [facility] [address] | | | | | [address] | | | | | | [place] [address] | | | | | | [phone] | | | | | | | | +--------+ + + + + | 12/20/ | Office | Otolaryngology | Ulysses Genao MD | | | 2020 | Visit | | [address] | | | | | | [address] [place], | | | | | | [place] [address] | | | | | | [phone] | | | | | | | | +--------+ + + + + documented as of this encounter Visit Diagnoses Not on filedocumented in this encounter"
--- OUTSIDE RECORDS SUMMARY | ~2019-10-16 | XMS | Encounter Summary ---
Demographics + + + | Address | [address] | | | [place] [address] | + + + | Home Phone [...] + +------+ + | Care Golf Cart Attendant Name | Role | Phone | [...] | | 2004 | Registratio | [facility] | [address] | | | | n | [address] Mailcode: RPB07 | [place], [place] | | | | | [place], [place] | [address] | | | | | [address] | [phone] | | | | | [phone] | | | +--------+ + + + [...] + | [facility] | [address] | [place] [address] | | | LABORATORY | | | [...] | [facility] | [address] [facility] | [place] [address] | | | PATHOLOGY | [address] | | | + + + + + | [facility] | [address] [facility] | [place] [address] | | | PATHOLOGY | [address] [...] OF | [address] | [place] [address] | | | PATHOLOGY | [address] | | | + + + + + | [facility] DEPARTMENT OF | [address] | [place] [address] | | | PATHOLOGY | [address] [...] DEPARTMENT OF | [address] | [place] [address] | | | PATHOLOGY | [address] | | | + + + + + | [facility] DEPARTMENT OF | [address] | [place] [address] | | | PATHOLOGY | [address] | | | + + + + + documented in this encounter Visit Diagnoses Not on filedocumented in this encounter"
--- OUTSIDE RECORDS SUMMARY | ~2019-10-16 | XMS | Encounter Summary ---
[...] Providers + +------+ + | Care Hammer Heater Name | Role | Phone | + +------+ + | Sulaiman Carrera MD | PCP | | + +------+ + Encounter Details +--------+ + + + + | Date | Type | Department | Care Team | Description | +--------+ + + + + | 07/24/ | Ancillary | Registration [address] | [place], | | | 2006 | Registratio | [facility] | MD Lukas[address] | | [address] | [address] Mailcode: RPB07 | [place], | | | | | [place], [place] | [place] [address] | | | | | [address] | [phone] | | | | | [phone] | | | +--------+ + + + [...] | | | | | performed at [place] | | | | | | [facility] [...] + + + | [facility] | [address] | [place] [address] | | | LABORATORY | | | [...] OF | [address] | [place] [address] | | | PATHOLOGY | [address] | | | + + + + + | [facility] DEPARTMENT OF | [address] | [place] [address] | | | PATHOLOGY | [address] [...] DEPARTMENT OF | [address] | [place] [address] | | | PATHOLOGY | [address] | | | + + + + + | [facility] DEPARTMENT OF | [address] [facility] | [place] [address] | | | PATHOLOGY | [address] [...] | [address] | [place] [address] | | | PATHOLOGY | [address] | | | + + + + + | [facility] DEPARTMENT OF | [address] | [place] [address] | | | PATHOLOGY | [address] | | | + + + + + PROTHROMBIN TIME (07/24/2005 5:03 PM PST) + + + + + + | Component | Value | Ref Range | Performed | Pathologist | | | | | At | Signature | + + + + + + | INR | 0.97Comment: | 0.90 - 1.20 INR | [facility] | | | | PT INR [...] + | [facility] | [address] | [place] [address] | | | PATHOLOGY | [address] | | | + + + + + | [facility] DEPARTMENT OF | [address] | [place] [address] | | | PATHOLOGY | [address] [...] + | [facility] | [address] | [place] [address] | | | PATHOLOGY | [address] | | | + + + + + | [facility] | [address] | [place] [address] | | | PATHOLOGY | [address] | | | + + + + + documented in this encounter Visit Diagnoses Not on filedocumented in this encounter"
--- OUTSIDE RECORDS SUMMARY | ~2019-10-16 | XMS | Encounter Summary ---
Demographics + + + | Address | [address] | | | [place] [address] | + + + | Home Phone [...] + +------+ + | Care Fire Prevention Forester Name | Role | Phone | [...] as of this encounter Discharge Summaries Interface, Rattlesnake Farmer In - 01/12/2005 6:32 AM PDTAdmission Date: [...] Murali Frederick M.D., D.M.D. Chris Padgett M.D. CLAIRE/craolynn A [id number] cc: documente d in this encounter Plan of Treatment Not on filedocumented as of this encounter Visit Diagnoses Not on filedocumented in this encounter"
--- OUTSIDE RECORDS SUMMARY | ~2019-10-16 | XMS | Encounter Summary ---
Demographics + + + | Address | [address] | | | [place] [address] | + + + | Home Phone [...] Providers + +------+ + | Care Branch Office Manager Name | Role | Phone [...] + | 04/02/ | Refill | [facility] | Alanis, | Medication Refill | | 2018 | | MEDICINE [address] [place] [address] | MD Petrona | | | | | [facility] | [address] [place] [address] | | | | | [place] [address] | [place] [address] | | | | | [phone] | [phone] | | | | | | | [...] | | | | | [place] [address] | | | | | | [phone] | | | | | | | | +--------+ + + + + | 12/20/ | Office | Audiology | DarioElisabet ramires MS | | | 2019 | Visit | | [facility] [address] [place] | | | | | | [place], [place] [address] | | | | | | [phone] | | | | | | | | +--------+ + + + + | 12/20/ | Office | Otolaryngology | Ulysses Genao MD | | | 2019 | Visit | | [address] | | | | | | [address] [place], | | | | | | [place] [address] | | | | | | [phone] | | | | | | | | +--------+ + + + + documented as of this encounter Visit Diagnoses Not on filedocumented in this encounter"
--- OUTSIDE RECORDS SUMMARY | ~2019-10-16 | XMS | Encounter Summary ---
Demographics + + + | Address | [address] | | | [place] [address] | + + + | Home Phone [...] Providers + +------+ + | Care Railroad Crossing Protection Maintainer Name | Role | Phone | + [...]
--- OUTSIDE RECORDS SUMMARY | ~2019-10-16 | XMS | Encounter Summary ---
[...] Team Providers + +------+ + | Care Free Lance Artist Name | Role | Phone | [...] of this encounter Progress Notes Interface, Hat Finisher In - 01/21/2006 1:09 AM [facility] [place] [address] [address], [place] [address] or March 15, 2002 Pedrito Gutierrez M.D. [facility] [address] [place] [address] RE: BELINDA MEEHAN MR #: [id number] Dear Dr. Gutierrez: I had the pleasure [...] to set her up to see a risk assessment consultant in Neurology or the [facility] [...] to contact me. Sincerely, Issac Meeks M.D. supervisor dimension warehouse Division of Endocrinology, Diabetes, and Clinical Director [facility] [employer] / SHARIF [id number] / [id number] / [id number] / Tdocumented in this encounter Plan of Treatment Not on filedocumented as of this encounter Visit Diagnoses Not on filedocumented in this encounter"
--- OUTSIDE RECORDS SUMMARY | ~2019-10-16 | XMS | Encounter Summary ---
Demographics + + + | Address | [address] | | | [place] [address] | + + + | Home Phone [...] Providers + +------+ + | Care Barrel And Receiver Aligner Name | Role | Phone | [...] [address] | | | | | [facility] | [place], [place] | | | | | [address] | [address] | | | | | [address] | [phone] | | | | | [facility] | | | | | | Physician's | | | | | | Pavilion [place], | | | | | | [place] [address] | | | | | | [phone] | | | +--------+--------+ + + + [...]
--- OUTSIDE RECORDS SUMMARY | ~2019-10-16 | XMS | Encounter Summary ---
Demographics + + + | Address | [address] | | | [place] [address] | + + + | Home Phone [...] Team Providers + +------+ + | Care Tankroom Tender Name | Role | Phone | [...] + | 11/20/ | Refill | [facility] | Alanis, | Medication Refill | | 2017 | | MEDICINE [address] [place] [address] | MD Petrona | | | | | [facility] | [address] [place] [address] | | | | | [place] [address] | [place] [address] | | | | | [phone] | [phone] | | | | | | | [...] | | | | | [place] [address] | | | | | | [phone] | | | | | | | | +--------+ + + + + | 12/20/ | Office | Audiology | DarioElisabet ramires MS | | | 2019 | Visit | | [facility] [address] [place] | | | | | | [place], [place] [address] | | | | | | [phone] | | | | | | | | +--------+ + + + + | 12/20/ | Office | Otolaryngology | Ulysses Genao MD | | | 2019 | Visit | | [address] | | | | | | [address] [place], | | | | | | [place] [address] | | | | | | [phone] | | | | | | | | +--------+ + + + + documented as of this encounter Visit Diagnoses Not on filedocumented in this encounter"
--- OUTSIDE RECORDS SUMMARY | ~2019-10-16 | XMS | Encounter Summary ---
Demographics + + + | Address | [address] | | | [place] [address] | + + + | Home Phone [...] + +------+ + | Care Senior Software Manager Name | Role | Phone [...] + + | 01/05/ | Telephone | [facility] | Luther Brito MD | Results | | 2018 | | GASTROENTEROLOGY | [address] [facility] | | | | | [address] [facility] | [place], [place] | | | | | [address] [place], [place] | [address] | | | | | [address] | [phone] | | | | | [phone] | | | +--------+ + + + [...] | | | | | [place] [address] | | | | | | [phone] | | | | | | | | +--------+ + + + + | 12/20/ | Office | Audiology | Elisabet Munson MS | | 2019 | Visit | | [facility] [address] | | | [address] [place] | | | | | | [place] [address] | | | | | | [phone] | | | | | | | | +--------+ + + + + | 12/20/ | Office | Otolaryngology | Ulysses Genao MD | | | 2020 | Visit | | [address] [facility] | | | | | | [address] [place], | | | | | | [place] [address] | | | | | | [phone] | | | | | | | | +--------+ + + + + documented as of this encounter Visit Diagnoses Not on filedocumented in this encounter"
--- OUTSIDE RECORDS SUMMARY | ~2019-10-16 | XMS | Encounter Summary ---
Demographics + + + | Address | [address] | | | [place] [address] | + + + | Home Phone [...] Providers + +------+ + | Care School Cafeteria Head Cook Name | Role | Phone | + +------+ + | Petrona Thapa | PCP | | | MD | | | + +------+ + Encounter Details +--------+ + + + + | Date | Type | Department | Care Team | Description | +--------+ + + + + | 12/18/ | Hospital | [facility] | Luther Brito MD | Abdominal pain, | | 2018 | Encounter | MED CTR MP INTRA OP | [address] | unspecified | | | | [address] | [place], [place] | abdominal location; | | | | [place], [place] | [address] | Gastroesophageal | | | | [address] | [phone] | reflux disease, | | | | [phone] | | esophagitis presence | | | [...] You can't be awakened Date Last Reviewed: 04/01/201619991485-7542 [employer] [place] [address], [place] [address]. All righ ts reserved. This information is [...] | | | | | [place] [address] | | | | | | [phone] | | | | | | | | +--------+ + + + + | 12/20/ | Office | Audiology | Elisabet Munson MS | | | 2019 | Visit | | [facility] [address] | | | | | | [address] [place] | | | | | | [place] [address] | | | | | | [phone] | | | | | | | | +--------+ + + + + | 12/20/ | Office | Otolaryngology | Ulysses Genao MD | | | 2019 | Visit | | [address] | | | | | | [address] [place], | | | | | | [place] [address] | | | | | | [phone] | | | | | | | [...] 12/18/2017 | PROVATION | | 10:49 AMMRN: [id number] #: [id number] of : | | | 9Admit Type: AmbulatoryAge: 57Room: [facility] 01Gender: FemaleNote | | | Status: FinalizedAttending MD: Luther Brito [facility]: | | | Upper GI [...] the anesthesiologist and the | | | cartography/mapping technician in the pre-procedure area in the [...] | appearing mucosa. This was traversed. The rbfhp-pd-mkomoue limb | | | was characterized by healthy appearing mucosa. The | | | jejunojejunal anastomosis was characterized by healthy | | | appearing mucosa. The tetrhuey-yi-zixuxnf limb was not examined | | | [...] AMScope Out: | | | 11:08:34 AM [facility] [address] | | | [place] [address] | | | - Return to GI [...] |Scope Out: 11:08:34 AM | | | [facility] [address] [place], [place] | | | [address] | | + + -+ + +---------+ [...] 12/18/2017 | PROVATION | | 10:43 AMMRN: [id number] #: [id number] of : | | | 9Admit Type: AmbulatoryAge: 57Room: [facility] 01Gender: FemaleNote | | | Status: FinalizedAttending MD: Luther Brito , [facility]cedure: | | | ColonoscopyIndications: Generalized [...] the anesthesiologist and the | | | cartography/mapping technician in the pre-procedure area in the [...] Scope In: 11:12:28 AMScope Out: 11:56:57 AM [facility] [place] | | | [facility], [address] [place] [address] | | | [phone] | | | - Await pathology results. [...] |Scope Out: 11:56:57 AM | | | [facility], [address] [place] [address] , [place], [place] | | | [address] | | + + -+ + +---------+ [...] for specific diagnostic abnormality. | | | JVR:[facility]:C2NR GROSS DESCRIPTION: Received in five parts. | | | All specimens are received in formalin, labeled "eBlinda Meehan." | | | All specimen descriptions [...] | | slide preparation were performed by [employer], [address] [place] [address] | | | [facility], [place] [address] (Gas Analyst: Stephen Jacobson | | | Joanna CLIA#: [id number]). Professional interpretation was performed | | | by [employer], [facility], [address] | | | [place] [address] (Gas Analyst: Stephen | | Anika Jacobson M.D.; CLIA#: [id number]). Diagnostician: Stephen Khan | | | Kavon [...]
--- OUTSIDE RECORDS SUMMARY | ~2019-10-16 | XMS | Encounter Summary ---
Demographics + + + | Address | [address] | | | [place] [address] | + + + | Home Phone [...] Providers + +------+ + | Care Claims Coordinator Name | Role | Phone | [...] Pavilion | | | | | | [place], [place] | | | | | | [address] | | | | | | [phone] | | | +--------+ + + + [...]
--- OUTSIDE RECORDS SUMMARY | ~2019-10-16 | XMS | Encounter Summary ---
Demographics + + + | Address | [address] | | | [place] [address] | + + + | Home Phone [...] Providers + +------+ + | Care Bevel Mill Operator Name | Role | Phone [...] | Other | | 2008 | | [address] | [address] | | | | | [place] Mailcode: CH4S | [address] | | | | | [facility] | [place], [place] | | | | | and Healing, | [address] | | | | | [place] [address], [facility] | [phone] | | | | | Floor [place], [place] | | | | | | [address] | | | | | | [phone] | | | +--------+ + + + [...]
--- OUTSIDE RECORDS SUMMARY | ~2019-10-16 | XMS | Encounter Summary ---
Demographics + + + | Address | [address] | | | [place] [address] | + + + | Home Phone [...] Providers + +------+ + | Care Manager Part Name | Role | Phone | [...] Required | | paroxysmal | [address] | [facility] | | | | | positional | [address] | [address] | | | | | vertigo, | [place] | AVE | | | | | left | [place], [place] | [place], [place] | | | | | Vertigo of | [address] | [address] | | | | | central | Phone: | Phone: | | | | | origin, left | [phone] | [phone] | | | | | | Fax: | Fax: | | | | | | [phone] | [phone] | +--------+ + + + + + + + | Scheduling Instructions | + + | Patient is going to be having an Tayler maneuver done and at [facility]. | + + Encounter Details +--------+ + + + + | Date | Type | Department | Care Team | Description | +--------+ + + + + | 12/11/ | Orders Only | [facility] | Ulysses Genao MD | Benign paroxysmal | | 2015 | | OTOLARYNGOLOGY [address] | [address] | positional vertigo, | | | | [address] | [address] [place], | left (Primary Dx); | | | | [place], [place] | [place] [address] | Vertigo of central | | | | [address] | [phone] | origin, left | | | | [phone] | | | +--------+ + + + [...] | | | | | [place] [address] | | | | | | [phone] | | | | | | | | +--------+ + + + + | 12/20/ | Office | Audiology | Elisabet Munson MS | | | 2019 | Visit | | [facility] [address] | | | | | | [address] [place] | | | | | | [place] [address] | | | | | | [phone] | | | | | | | | +--------+ + + + + | 12/20/ | Office | Otolaryngology | Ulysses Genao MD | | | 2019 | Visit | | [address] | | | | | | [address] [place], | | | | | | [place] [address] | | | | | | [phone] | | | | | | | [...]
--- OUTSIDE RECORDS SUMMARY | ~2019-10-16 | XMS | Encounter Summary ---
Demographics + + + | Address | [address] | | | [place] [address] | + + + | Home Phone [...] | Osteopenia | MD Beto | Density [facility] | | | | | Procedures | [address] | [address] | | | | | CONSULT TO | Ave | [address] | | | | | BONE | [place], [place] | Rd Mailcode: | | | | | DENSITOMETRY | [address] | [address] | | | | | | Phone: | [address] | | | | | | [phone] | [place], [place] | | | | | | Fax: | [address] | | | | | | [phone] | Phone: | | | | | | | [phone] | | | | | | | Fax: | | | | | | | [phone] | +--------+--------+ + + + + Reason [...] 2007 | | [facility] | [address] | | | | | Center at Phys[facility] | [facility] [place] | | | | | Pavilion [address] | [address] | | | | | [address] | [phone] | | | | | [facility] | | | | | | Physician's | | | | | | Pavilion [place], | | | | | | [place] [address] | | | | | | [phone] | | | +--------+ + + + [...]
--- OUTSIDE RECORDS SUMMARY | ~2019-10-16 | XMS | Encounter Summary ---
Demographics + + + | Address | [address] | | | [place] [address] | + + + | Home Phone [...] Team Providers + +------+ + | Care Volunteer Services Manager Name | Role | Phone [...] + | 04/26/ | Refill | [facility] | Alanis, | Medication Refill | | 2017 | | MEDICINE [address] [place] [address] | MD Petrona | | | | | [facility] | [address] [place] [address] | | | | | [place] [address] | [place] [address] | | | | | [phone] | [phone] | | | | | | | [...] | | | | | [place] [address] | | | | | | [phone] | | | | | | | | +--------+ + + + + | 12/20/ | Office | Audiology | DarioElisabet ramires MS | | | 2019 | Visit | | [facility] [address] | | | | | [address] [place] | | | | | | [place], [place] [address] | | | | | | [phone] | | | | | | | | +--------+ + + + + | 12/20/ | Office | Otolaryngology | Ulysses Genao MD | | | 2019 | Visit | | [address] | | | | | | [address] [place], | | | | | | [place] [address] | | | | | | [phone] | | | | | | | | +--------+ + + + + documented as of this encounter Visit Diagnoses Not on filedocumented in this encounter"
--- OUTSIDE RECORDS SUMMARY | ~2019-10-16 | XMS | Encounter Summary ---
Demographics + + + | Address | [address] | | | [place] [address] | + + + | Home Phone [...] Team Providers + +------+ + | Care Robotic Machine Operator Name | Role | Phone [...] + + | 03/02/ | Telephone | [facility] | Alanis, | Results, Imaging | | 2017 | | MEDICINE [address] | MD Petrona | | | | | [facility] | [address] [place] [address] | | | | | [place] [address] | [place] [address] | | | | | [phone] | [phone] | | | | | | | [...] | | | | | [place] [address] | | | | | | [phone] | | | | | | | | +--------+ + + + + | 12/20/ | Office | Audiology | Elisabet Munson MS | | | 2019 | Visit | | [facility] [address] | | | | | [address] [place] | | | | | | [place], [place] [address] | | | | | | [phone] | | | | | | | | +--------+ + + + + | 12/20/ | Office | Otolaryngology | Ulysses Genao MD | | | 2019 | Visit | | [address] | | | | | | [address] [place], | | | | | | [place] [address] | | | | | | [phone] | | | | | | | | +--------+ + + + + documented as of this encounter Visit Diagnoses Not on filedocumented in this encounter"
--- OUTSIDE RECORDS SUMMARY | ~2019-10-16 | XMS | Encounter Summary ---
Demographics + + + | Address | [address] | | | [place] [address] | + + + | Home Phone [...] Team Providers + +------+ + | Care Websphere Developer Name | Role | Phone [...]
--- OUTSIDE RECORDS SUMMARY | ~2019-10-16 | XMS | Encounter Summary ---
Demographics + + + | Address | [address] | | | [place] [address] | + + + | Home Phone [...] Providers + +------+ + | Care Executive Wellness Programs Director Name | Role | Phone [...] | Office | [facility] | Lukasz Charles, | Major Depressive | | 2006 | Visit | [address] | PhD [address] | Disorder, Recurrent | | | | Mailcode: CH15P | [place], [place] | Episode, Moderate | | | | [facility] | [address] | ([facility]); Neck Pain; | | | | and Healing, | [phone] | Migraine Headache; | | | | Building | | 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 Diagnosis: Callaway I: 1. (296.32) Major depressive disorder, recurrent, moderate. 2. (309.24) Adjustment disorder with anxiety. 3. 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 Callaway II: Deferred Callaway III: abdominal pain, migraine headache, low back pain. Callaway IV: low finances Callaway V: GAF 50 Plan: Return in 2 weeks. Check pacing, relaxation, activity, distraction. Ask about coping with previous headache. Continue cognitive/behavioral therapy. Total time spent with patient was approximately 45 minutes. LUKASZ CHARLES [facility] [address] [facility] [place] [address] documented in this encount er Plan of [...]
--- OUTSIDE RECORDS SUMMARY | ~2019-10-16 | XMS | Encounter Summary ---
Demographics + + + | Address | [address] | | | [place] [address] | + + + | Home Phone [...] Providers + +------+ + | Care Compliance And Control Analyst Name | Role | Phone [...] | | | | | | Mailcode: [facility] | | | | | | | [facility] Center | | | | | | | for Health | | | | | | | and Healing, | | | | | | | [address] | | | | | | | [facility] [place] | | | | | | | [address] | | | | | | | Phone: | | | | | | | [phone] | | | | | | | Fax: | | | | | | | [phone] | +--------+--------+ + + + + Encounter Details +--------+ + + + + | Date | Type | Department | Care Team | Description | +--------+ + + + + | 09/14/ | Hospital | [facility] PROCEDURE | Olivia, | | | 2008 | Encounter | [address] | MD Pedrito | | | | | [place] Mailcode: [facility] | | | | | | [facility] for | | | | | | Health and Healing, | | | | | | [address] | | | | | | [facility] [place] | | | | | | [address] | | | | | | [phone] | | | +--------+ + + + [...] Discharge Instructions Instructions Marleen Hogan - 09/14/2008 [facility] [address] [place] [address] Toll Free ext: [phone] Home Care Instructions after EGD (Upper Endoscopy) [...] hours, or on weekends and holidays Hospital Tumor Registrar and have the GI doctor recreation specialist paged. The provider who performed your procedure [...] Meehan is a 48 y.o. female MR# [id number] presents today for an EG D to [...] 01/22/2006 Tramadol 01/22/2006 Morphine Clarithromycin Hives 06/28/2007 Sghepji-xcfihqdbgw-spu-caff 08/28/2008 See procedure note 09/14/2008 documented in [...]
--- OUTSIDE RECORDS SUMMARY | ~2019-10-16 | XMS | Encounter Summary ---
Demographics + + + | Address | [address] | | | [place] [address] | + + + | Home Phone [...] Providers + +------+ + | Care Master Dyer Name | Role | Phone | [...] | 2006 | Visit | [facility] at [facility] | [address] [facility] | Myelopathy, Lumbar | | | | [place] [address] [place], | Region; Neck Pain; | | | | [address] [place] Mailcode: | [place] [address] | Herniated Lumbar | | | | [facility]15[facility] for | | Intervertebral Disc | | | | Health and Healing, | | L4-5; Fibromyalgia | | | | Building | | syndrome 729.1; NO | | | | Floor [place], [place] | | DIAGNOSIS RECEIVED | | | | [address] | | | | | | [phone] | | | +--------+---------+ + + + [...] Date: December 02, 2006 Patient: Belinda Meehan, [id number], 1960 I agree with the proposed Physical Therapy Treatment Plan. Provider: DELFINA BUNDY elfina Molina - 007 11:31 AM PDTThis encounter was opened in error. Please disregard this note. athalia Arora - 007 12:26 PM PDT PROGRESS NOTE: Physical Therapy Medicare Progress Note Date: 10/07/2006 Belinda Meehan [id number]. 1960 Start of Care: 06/23/2006 Referring Provider: [...] dial meniscal tear. Patient continues walking at [facility] on a daily basis, (when she is no t in [place] for appts), 30-40 minutes, and her HEP [...] ended: 115 Nathalia Arora, Physical Therapist License #[id number] documented in this encoun ter Plan of [...]
--- OUTSIDE RECORDS SUMMARY | ~2019-10-16 | XMS | Encounter Summary ---
Demographics + + + | Address | [address] | | | [place] [address] | + + + | Home Phone [...] [id number] | | | | | | [place], [place] | | | | | | [address] | | | | | | [phone] | | | +--------+ + + + [...]
--- OUTSIDE RECORDS SUMMARY | ~2019-10-16 | XMS | Encounter Summary ---
Demographics + + + | Address | [address] | | | [place] [address] | + + + | Home Phone [...] Team Providers + +------+ + | Care Miller Supervisor Name | Role | Phone | [...] | | | OFFICE VISIT | | [address] Phone: | | | | | REGULAR | | [phone] | | | | | | | Fax: | | | | | | | [phone] | +--------+--------+ + + + + Encounter Details +--------+---------+ + + + | Date | Type | Department | Care Team | Description | +--------+---------+ + + + | 12/30/ | Office | [facility] | Elisabet Munson MS | Subjective tinnitus | | 2018 | Visit | AUDIOLOGY AND | [facility] [address] | of left ear (Primary | | | | [facility] | [address] [place] | Dx) | | | | [address] | [place] [address] | | | | | [address] [place] | [phone] | | | | | [place] [address] | | | | | | [phone] | | | +--------+---------+ + + + [...] | | | | | | [address] [place] [address] [address] | | | | | | [place] [address] | | | | | | [phone] | | | | | | | | +--------+ + + + + | 12/20/ | Office | Audiology | Elisabet Munson MS | | | 2019 | Visit | | [facility] [address] | | | | | | [address] [place] | | | | | | [place], [place] [address] | | | | | | [phone] | | | | | | | | +--------+ + + + + | 12/20/ | Office | Otolaryngology | Ulysses Genao MD | | | 2019 | Visit | | [address] | | | | | | [address] [place], | | | | | | [place] [address] | | | | | | [phone] | | | | | | | [...]
--- OUTSIDE RECORDS SUMMARY | ~2019-10-16 | XMS | Encounter Summary ---
Demographics + + + | Address | [address] | | | [place] [address] | + + + | Home Phone [...] [id number] | | | | | | [place], [place] | | | | | | [address] | | | | | | [phone] | | | +--------+--------+ + + + [...]
--- OUTSIDE RECORDS SUMMARY | ~2019-10-16 | XMS | Encounter Summary ---
Demographics + + + | Address | [address] | | | [place] [address] | + + + | Home Phone [...] Providers + +------+ + | Care Salesperson Men'S [employer] Boys' Clothing Name | Role | Phone | + [...]
--- OUTSIDE RECORDS SUMMARY | ~2019-10-16 | XMS | Encounter Summary ---
Demographics + + + | Address | [address] | | | [place] [address] | + + + | Home Phone [...] Providers + +------+ + | Care Boat Pilot Name | Role | Phone | [...] + | 09/04/ | Refill | [facility] | Alanis, | Medication Refill | | 2019 | | MEDICINE [address] | MD Petrona | | | | | [facility] | [address] [place] [address] | | | | | [place] [address] | [place] [address] | | | | | [phone] | [phone] | | | | | | | [...] | | | | | [place] [address] | | | | | | [phone] | | | | | | | | +--------+ + + + + | 12/20/ | Office | Audiology | DarioElisabet ramires MS | | | 2019 | Visit | | [facility] [address] | | | | | | [address] [place] | | | | | | [place], [place] [address] | | | | | | [phone] | | | | | | | | +--------+ + + + + | 12/20/ | Office | Otolaryngology | Ulysses Genao MD | | | 2019 | Visit | | [address] | | | | | | [address] [place], | | | | | | [place] [address] | | | | | | [phone] | | | | | | | | +--------+ + + + + documented as of this encounter Visit Diagnoses Not on filedocumented in this encounter"
--- OUTSIDE RECORDS SUMMARY | ~2019-10-16 | XMS | Encounter Summary ---
Demographics + + + | Address | [address] | | | [place] [address] | + + + | Home Phone [...] 03/21/ | Office | [facility] | Emmy-Kamlesh, | Migraine without | | 2019 | Visit | MEDICINE [address] | MD Petrona | aura and without | | | | Street [facility] | [address] [place] [address] | status migrainosus, | | | | [place] [address] | [place] [address] | not intractable | | | | [phone] | [phone] | (Primary Dx); | | | | [...] She is working with an orthopedist in [facility], and she anticipates that she will [...] Procedure: COLONOSCOPY; Surgeon: Luther Brito MD; Location: [facility] MEDICAL PROCEDURE UNIT DILATION AND CURETTAGE OF UTERUS ELBOW SURGERY FINGER TRIGGER RELEASE 2002 FINGER TRIGGER RELEASE 2009 GASTRIC BYPASS SURGERY 2004 HYSTERECTOMY 05/14/1980 JOINT REPLACEMENT Bilateral 2007 2008 KNEE ARTHROSCOPY 2005 LAPAROSCOPY 01/27/2015 LAPAROTOMY 2008 ROTATOR CUFF REPAIR 2005 SPINE SURGERY TONSILLECTOMY 1964 UPPER GASTROINTESTINAL ENDOSCOPY N/A 12/18/2017 Procedure: EGD; Surgeon: Luther Brito MD; Location: [facility] MEDICAL PROCEDURE UNIT CURRENT MEDICATIONS [...] Allergen Reactions Ensure Diarrhea Food Diarrhea Lactose Yxtujeuymf-Wdk-Txil-Codeine Other (See Comments) Balance problems Codeine Sulfate Nausea Only Food Allergy Formula Diarrhea Ensure Levofloxacin Hives, Itching and Rash Butalbital Ropinirole Amitriptyline Hcl Other (See Comments) Confused and questionable for seizures Hzqidkplss-Tgml-Xioaymoy Rash duplicate Vcuyqtswrz-Slpb-Jlbwlnjm Hives and Rash Cephalexin Hives Ciprofloxacin Hives [...] 1. Parts of this documentwere created using [employer] speech recognition software. As a resu lt, [...] | | | | | [address] [facility] | | | | | | [place] [address] | | | | | | [phone] | | | | | | | | +--------+ + + + + | 12/20/ | Office | Audiology | Elisabet Munson MS | | | 2019 | Visit | | [facility] [address] | | | | | | [address] [place] | | | | | | [place] [address] | | | | | | [phone] | | | | | | | | +--------+ + + + + | 12/20/ | Office | Otolaryngology | Ulysses Genao MD | | | 2019 | Visit | | [address] | | | | | | [address] [place], | | | | | | [place] [address] | | | | | | [phone] | | | | | | | [...]
--- OUTSIDE RECORDS SUMMARY | ~2019-10-16 | XMS | Encounter Summary ---
Demographics + + + | Address | [address] | | | [place] [address] | + + + | Home Phone [...] Providers + +------+ + | Care Head Mechanic Name | Role | Phone | + +------+ + | Petrona Thapa | PCP | | | MD | | | + +------+ + Encounter Details +--------+ + + + + | Date | Type | Department | Care Team | Description | +--------+ + + + + | 07/16/ | Orders Only | [facility] | Alanis, | | | 2017 | | MED CTR OP INFUSION | MD Petrona | | | | | [address] | [address] [facility] | | | | | [place] | [place] [address] | | | | | [address] | [phone] | | | | | [phone] | | | +--------+ + + + [...] | | | | | [place] [address] | | | | | | [phone] | | | | | | | | +--------+ + + + + | 12/20/ | Office | Audiology | Elisabet Munson MS | | | 2019 | Visit | | [facility] | | | | | | [address] [place] [address] [place] | | | | | | [place] [address] | | | | | | [phone] | | | | | | | | +--------+ + + + + | 12/20/ | Office | Otolaryngology | Ulysses Genao MD | | | 2020 | Visit | | [address] [facility] | | | | | | [address] [place], | | | | | | [place] [address] | | | | | | [phone] | | | | | | | | +--------+ + + + + documented as of this encounter Visit Diagnoses Not on filedocumented in this encounter"
--- OUTSIDE RECORDS SUMMARY | ~2019-10-16 | XMS | Encounter Summary ---
Demographics + + + | Address | [address] | | | [place] [address] | + + + | Home Phone [...] Providers + +------+ + | Care Game Moderator Name | Role | Phone | + [...] | | | | CONSULT TO | [place], [place] | [address] | | | | | NEUROLOGY | [address] | for Health | | | | | | | and Healing, | | | | | | | Building 1, | | | | | | | 8th Floor | | | | | | | [place], [place] | | | | | | | [address] | | | | | | | Phone: | | | | | | | [phone] | | | | | | | Fax: | | | | | | | [phone] | +--------+--------+ + + + + Reason for Visit +--------+ + | Reason | Comments | +--------+ + | Pain | back, legs, headache | +--------+ + Encounter Details +--------+---------+ + + + | Date | Type | Department | Care Team | Description | +--------+---------+ + + + | 08/12/ | Office | [facility] | Delfina Molina, | Migraine Headache | | 2006 | Visit | Pain Center at | ANP | (Primary Dx); | | | | [facility][Note 3] | | 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
--- OUTSIDE RECORDS SUMMARY | ~2019-10-16 | XMS | Encounter Summary ---
Demographics + + + | Address | [address] | | | [place] [address] | + + + | Home Phone [...] Providers + +------+ + | Care Engineering Agent Name | Role | Phone | + +------+ + | Pedrito Gutierrez MD | PCP | | + +------+ + Encounter Details +--------+ + + + + | Date | Type | Department | Care Team | Description | +--------+ + + + + | 03/26/ | Telephone | [facility] Division of | Carlos Arreola, | | | 2005 | | Gastroenterology/Hep | [address] | | | | | atology [address] | | | | | [address] | [place] [address] | | | | | Mailcode: PV310 | [phone] | | | | | Physician's Sharmila | | | | | | [address] | | | | | | [place], [place] | | | | | | [address] | | | | | | [phone] | | | +--------+ + + + [...]
--- OUTSIDE RECORDS SUMMARY | ~2019-10-16 | XMS | Encounter Summary ---
Demographics + + + | Address | [address] | | | [place] [address] | + + + | Home Phone [...] Team Providers + +------+ + | Care Insert Operator Name | Role | Phone | [...] | Transcriptions | + + | Interface, Physician Office Assistant In - 08/06/2005 2:06 AM PST | | [id number] | | [id number] GEOVANNI Barnes | | | | Date: 07/25/2005 | | | | Attending Surgeon: Chris Padgett M.D. | | | | Taker Off Braker Machine(s): Bandar Langley M.D. | | | | [...] | | DT / HS | | [id number] / [id number] / [id number] / [id number] | | | | | | | | | | | | Electronically signed by Chris Padgett 08-05-2005 12:36:41 PM | + + documented in this encounter Visit Diagnoses Not on filedocumented in this encounter"
--- OUTSIDE RECORDS SUMMARY | ~2019-10-16 | XMS | Encounter Summary ---
Demographics + + + | Address | [address] | | | [place] [address] | + + + | Home Phone [...] Providers + +------+ + | Care Package Handler Name | Role | Phone | [...] + + | 05/14/ | Telephone | [facility] INTERNAL | Alanis, | Referral | | 2017 | | MEDICINE [address] [place] [address] | MD Petrona | | | | | [facility] | [address] [place] [address] | | | | | [place] [address] | [place] [address] | | | | | [phone] | [phone] | | | | | | | [...] | | | | | [place] [address] | | | | | | [phone] | | | | | | | | +--------+ + + + + | 12/20/ | Office | Audiology | Elisabet Munson MS | | 2019 | Visit | | [facility] [address] | | | | | [address] [place] | | | | | | [place] [address] | | | | | | [phone] | | | | | | | | +--------+ + + + + | 12/20/ | Office | Otolaryngology | Ulysses Genao MD | | | 2020 | Visit | | [address] | | | | | | [address] [place], | | | | | | [place] [address] | | | | | | [phone] | | | | | | | | +--------+ + + + + documented as of this encounter Visit Diagnoses Not on filedocumented in this encounter"
--- OUTSIDE RECORDS SUMMARY | ~2019-10-16 | XMS | Encounter Summary ---
Demographics + + + | Address | [address] | | | [place] [address] | + + + | Home Phone [...] + +------+ + | Care Recording Studio Internship Name | Role | Phone | [...] | 2006 | Visit | [facility] at [facility] | MD Darrion,PhD [address] | (Primary Dx) | | | | for Health and | [address] | | | | | Healing [address] | [place], [place] | | | | | Ave Mailcode: | [address] | | | | | CH12A [facility] for | [phone] | | | | | Health and Healing, | | | | | | [facility] | | | | | | Floor [place], [place] | | | | | | [address] | | | | | | [phone] | | | +--------+---------+ + + + [...] documented in this encounter Progress Notes Pamela pU Ma(Inactive) - 08/26/2006 8:04 AM PDTFormatting of [...] Tramadol Morphine IM ( only in [facility]) made gut pain worse REVIEW OF [...] normal limits except as noted. RIGHT LEFT [place] Crepitation J Sign Apprehension LIGAMENTS: Within normal [...] are not effective. Angel Morales M.D., Ph.D. Polymerization Oven Operator, Surgical Supervisor Grain And Yeast Plants Orthopedics & Cartilage Reconstruction Surgery Department of Orthopedics [email or web address] documented in this encou nter Plan of Treatment Not on filedocumented as of this encounter Visit Diagnoses + + | Diagnosis | + + | Osteoarthrosis, unspecified whether generalized or localized, lower leg - Primary | + + documented in this encounter
--- OUTSIDE RECORDS SUMMARY | ~2019-10-16 | XMS | Encounter Summary ---
Demographics + + + | Address | [address] | | | [place] [address] | + + + | Home Phone [...] Providers + +------+ + | Care Plug Paster Name | Role | Phone | + +------+ + | Maria Esther Cintron MD | PCP | | + +------+ + Encounter Details +--------+ + + + + | Date | Type | Department | Care Team | Description | +--------+ + + + + | 08/26/ | Telephone | Digestive Health | Chris Padgett, | | | 2010 | | [place] [address] | [address] [facility] | | | | | Bethanie Mailcode: CH4S | [address] | | | | | Center for Health | [place], [place] | | | | | and Healing, | [address] | | | | | Building , 6th | [phone] | | | | | Floor [place], [place] | | | | | | [address] | | | | | | [phone] | | | +--------+ + + + [...]
--- OUTSIDE RECORDS SUMMARY | ~2019-10-16 | XMS | Encounter Summary ---
Demographics + + + | Address | [address] | | | [place] [address] | + + + | Home Phone [...] Providers + +------+ + | Care Welfare Administrator Name | Role | Phone | [...] + + | 10/13/ | Telephone | [facility] INTER[facility] | Alanis, | Appointment Question | 2019 | | MEDICINE [address] [place] [address] | MD Petrona | | | | | [facility] | [address] [place] [address] | | | | | [place] [address] | [place] [address] | | | | | [phone] | [phone] | | | | | | | [...] | | | | | [place] [address] | | | | | | [phone] | | | | | | | | +--------+ + + + + | 12/20/ | Office | Audiology | Elisabet Munson MS | | | 2019 | Visit | | [facility] [address] | [address] [place] | | | | | | [place] [address] | | | | | | [phone] | | | | | | | | +--------+ + + + + | 12/20/ | Office | Otolaryngology | Ulysses Genao MD | | | 2019 | Visit | | [address] | | | | | | [address] [place], | | | | | | [place] [address] | | | | | | [phone] | | | | | | | | +--------+ + + + + documented as of this encounter Visit Diagnoses Not on filedocumented in this encounter"
--- OUTSIDE RECORDS SUMMARY | ~2019-10-16 | XMS | Encounter Summary ---
Demographics + + + | Address | [address] | | | [place] [address] | + + + | Home Phone [...] Providers + +------+ + | Care Chemical Equipment Controller Name | Role | Phone | [...] as of this encounter Progress Notes Interface, Flat Knitter Helper In - 01/03/2006 3:02 AM PDTCLINIC DATE: 11/01/2002 NEUROMUSCULAR CLINIC PRIMARY CARE PROVIDER: Pedrito Gutierrez M.D. OTHER PHYSICIAN: Issac Meeks M.D., [facility] Endocrinology. PROBLEM LIST 1. Fibromyalgia [...] fatigue. She reportedly has begun walking with Gilberts crutches much of the time due to [...] Irving Pete M.D. Neurology/Neuromuscular Fellow TBD / [id number] / [id number] / [id number] / [id number] C: 11/10/2002 BRAD cc: Issac Meeks M.D. [facility] Endocrinology Pedrito Gutierrez M.D. [address] [place], [place] [address]Sdmivxaanbszol signed by Interface, Flat Knitter Helper In at 01/03/2006 3:0 2 AM PDTdocumented in this encounter Plan of Treatment Not on filedocumented as of this encounter Visit Diagnoses Not on filedocumented in this encounter
--- OUTSIDE RECORDS SUMMARY | ~2019-10-16 | XMS | Encounter Summary ---
Demographics + + + | Address | [address] | | | [place] [address] | + + + | Home Phone [...] Team Providers + +------+ + | Care Haul Driver Name | Role | Phone | [...] | 2006 | Visit | [facility] at [facility] | MD Darrion,PhD [address] | Deconditioning; | | | | for Health and | [address] | Physical | | | | Healing [address] | [place], [place] | Deconditioning | | | | Ave Mailcode: | [address] | | | | | CH12A [facility] | [phone] | | | | | Health and Healing, | | | | | | [facility] | | | | | | Floor [place], [place] | | | | | | [address] | | | | | | [phone] | | | +--------+---------+ + + + [...] and neurology assessment. Angel Morales M.D., Ph.D. Mental Health Advanced Practice Nurse, Surgical Bad Credit Collector Orthopedics & Cartilage Reconstruction Surgery Department of Orthopedics [email or web address] documented in [...]
--- OUTSIDE RECORDS SUMMARY | ~2019-10-16 | XMS | Encounter Summary ---
Demographics + + + | Address | [address] | | | [place] [address] | + + + | Home Phone [...] Providers + +------+ + | Care Log Scaler Name | Role | Phone | [...] | | | [facility] | [place], [place] | | | | | [address] | [address] | | | | | [address] | [phone] | | | | | Physician's | | | | | | Pavilion, 1st floor | | | | | | [place], [place] | | | | | | [address] | | | | | | [phone] | | | +--------+--------+ + + + [...]
--- OUTSIDE RECORDS SUMMARY | ~2019-10-16 | XMS | Encounter Summary ---
[...] Providers + +------+ + | Care Clay Dry Press Mixer Operator Name | Role | Phone [...] [address] | | | | | [facility] | [place], [place] | | | | | and Healing, | [address] | | | | | [facility] 1, [facility] | [phone] | | | | | Floor [place], [place] | | | | | | [address] | | | | | | [phone] | | | +--------+ + + + [...]
--- OUTSIDE RECORDS SUMMARY | ~2019-10-16 | XMS | Encounter Summary ---
Demographics + + + | Address | [address] | | | [place] [address] | + + + | Home Phone [...] Team Providers + +------+ + | Care Cuff Stitcher Name | Role | Phone | [...] 09/23/ | Office | [facility] at [facility] | Lukasz Charles, | Major Depressive | | 2006 | Visit | [address] | PhD [address] | Disorder, Recurrent | | | | Mailcode: CH15 | [place], [place] | Episode, Moderate | | | | Center for Health | [address] | (HCC); Chronic | | | | and Healing, | [phone] | Abdominal Pain; | | | | Building | | Herniated Lumbar | | | | Floor [place], [place] | | Intervertebral Disc | | | | [address] | | L4-5; 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 Diagnosis: [place] I: 1. (296.32) Major depressive disorder, recurrent, moderate. 2. (309.24) Adjustment disorder with anxiety. 3. 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 [place] II: Deferred [place] III: abdominal pain, migraine headache, low back pain. [place] IV: low finances [place] V: GAF 50 Plan: Return in 2 weeks. Check preparation for move and for niece's visit, Curves gym, pacing, r elaxation, activity, distraction. Check managing Pain... book. Discuss need for further vi sits. Total time spent with patient was approximately 45 minutes. LUKASZ CHARLES PHD [facility] [address] [facility], [address] [place] [address] documented in this encount er Plan of [...]
--- OUTSIDE RECORDS SUMMARY | ~2019-10-16 | XMS | Encounter Summary ---
Demographics + + + | Address | [address] | | | [place] [address] | + + + | Home Phone [...] Providers + +------+ + | Care Surgery Assistant Name | Role | Phone | [...] [address] | | | | | [facility] | [place], [place] | | | | | and Healing, | [address] | | | | | [facility], [facility] | [phone] | | | | | Floor [place], [place] | | | | | | [address] | | | | | | [phone] | | | +--------+ + + + [...]
--- OUTSIDE RECORDS SUMMARY | ~2019-10-16 | XMS | Encounter Summary ---
Demographics + + + | Address | [address] | | | [place] [address] | + + + | Home Phone [...] Providers + +------+ + | Care Workforce Management Manager Name | Role | Phone [...] [facility] | Alanis, | Vomiting | | 2018 | | MEDICINE [address] [place] [address] | MD Petrona | | | | | [facility] | [address] [place] [address] | | | | | [place] [address] | [place] [address] | | | | | [phone] | [phone] | | | | | | | [...] [place] | | | | | | [place] [address] | | | | | | [phone] | | | | | | | | +--------+ + + + + | 12/20/ | Office | Audiology | Elisabet Munson MS | | 2019 | Visit | | [facility] [address] | | | | | [address] [place] | | | | | | [place] [address] | | | | | | [phone] | | | | | | | | +--------+ + + + + | 12/20/ | Office | Otolaryngology | Ulysses Genao MD | | | 2020 | Visit | | [address] | | | | | | [address] [place], | | | | | | [place] [address] | | | | | | [phone] | | | | | | | | +--------+ + + + + documented as of this encounter Visit Diagnoses Not on filedocumented in this encounter"
--- OUTSIDE RECORDS SUMMARY | ~2019-10-16 | XMS | Encounter Summary ---
Demographics + + + | Address | [address] | | | [place] [address] | + + + | Home Phone [...] Providers + +------+ + | Care Court Orderly Name | Role | Phone | + [...] of this encounter Progress Notes Interface, Continuous Drier Helper In - 08/19/2005 2:05 AM PST [id number] GEOVANNI Barnes Clinic Date: 07/29/2005 Clinic: Hematology [...] pursue aggressive iron supplementation. Lukasz Sellers M.D. top loader [employer] / SHARIF [id number] / [id number] / [id number] / [id number] cc: Pedrito Gutierrez M.D. [address] [place] [address] Electronically signed by Lukasz Sellers 08-18-2005 01:28:12 PM documented i n this encounter Plan of Treatment Not on filedocumented as of this encounter Visit Diagnoses Not on filedocumented in this encounter"
--- OUTSIDE RECORDS SUMMARY | ~2019-10-16 | XMS | Encounter Summary ---
Demographics + + + | Address | [address] | | | [place] [address] | + + + | Home Phone [...] Providers + +------+ + | Care Top Flavor Attendant Name | Role | Phone | [...] | | Center at [facility] [address] | ASSISTANT STRENGTH COACH [address] | | | | | [address] | , [address] | | | | | Mailcode: Center | [place], [place] | | | | | [facility] and | [address] | | | | | Healing, Building [address] | [phone] | | | | | [place], [place] | | | | | | [address] | | | | | | [phone] | | | +--------+ + + + [...]
--- OUTSIDE RECORDS SUMMARY | ~2019-10-16 | XMS | Encounter Summary ---
Demographics + + + | Address | [address] | | | [place] [address] | + + + | Home Phone [...] Providers + +------+ + | Care Nuclear Engineering Technician Name | Role | Phone [...] as of this encounter Progress Notes Interface, Jewel Bearing Grinder In - 11/19/2005 3:09 AM PDT [place] [facility] [address] [place] [address] or May 09, 2003 Pedrito Gutierrez M.D. [address] [place] [address] RE: BELINDA MEEHAN MR #: [id number] Dear Dr. Gutierrez: I had the pleasure [...] this testing done through your clinic in [place]. I will plan to see her again [...] regarding her condition. Sincerely, Issac Meeks M.D. gasateria attendant, Division of Endocrinology, Diabetes, and Clinical Associate Professor Computer Science, Metabolic Disorders Clinic PBD / HS [id number] / [id number] / [id number] / Tdocumented in this encounter Plan of Treatment Not on filedocumented as of this encounter Visit Diagnoses Not on filedocumented in this encounter"
--- OUTSIDE RECORDS SUMMARY | ~2019-10-16 | XMS | Encounter Summary ---
Demographics + + + | Address | [address] | | | [place] [address] | + + + | Home Phone [...] Team Providers + +------+ + | Care Endband Cutter Hand Name | Role | Phone | [...] | | | | Mailcode: L223A | [place], [place] | | | | | [facility] | [address] | | | | | [address] [place], [place] | [phone] | | | | | [address] | | | | | | [phone] | | | +--------+ + + + [...]
--- OUTSIDE RECORDS SUMMARY | ~2019-10-16 | XMS | Encounter Summary ---
Demographics + + + | Address | [address] | | | [place] [address] | + + + | Home Phone [...] Providers + +------+ + | Care Field Application Engineer Name | Role | Phone [...] | [facility] [address] [place], | Region; Herniated | | | | [address] Mailcode: | [place] [address] | Lumbar | | | | CH15P [place] for | | Intervertebral Disc | | | | Health and Healing, | | L4-5; Neck Pain; | | | | | | Fibromyalgia | | | | Floor [place], [place] | | syndrome 729.1 | | | | [address] | | | | | | [phone] | | | +--------+---------+ + + + [...] Medicare Progress Note Date: 08/26/2006 Belinda Meehan [id number]. [id number] Start of Care: 06/23/2006 Referring Provider: [...] and when she is finished at the [facility] with physical therapy advised to become [...] [place] THERAPEUTIC | Procedures | Routin | Spondylosis [...]
--- OUTSIDE RECORDS SUMMARY | ~2019-10-16 | XMS | Encounter Summary ---
Demographics + + + | Address | [address] | | | [place] [address] | + + + | Home Phone [...] [address] | | | | | [place] [facility] | [place], [place] | | | | | [address] | [address] | | | | | [address] | [phone] | | | | | Physician[facility] Pavilion | | | | | | Physician's | | | | | | Pavilion [place], | | | | | | [place] [address] | | | | | | [phone] | | | +--------+--------+ + + + [...]
--- OUTSIDE RECORDS SUMMARY | ~2019-10-16 | XMS | Encounter Summary ---
Demographics + + + | Address | [address] | | | [place] [address] | + + + | Home Phone [...] | [facility] | | | [...] Providers + +------+ + | Care Final Tester Name | Role | Phone | + +------+ + | Petrona Thapa | PCP | | | MD | | | + +------+ + Encounter Details +--------+ + + + + | Date | Type | Department | Care Team | Description | +--------+ + + + + | 09/22/ | Hospital | [facility] | Alanis, | Impingement syndrome | | 2018 | Encounter | [facility] | MD Petrona | of right shoulder | | | | [address] [place] | [address] [place] | | | | | [place], [place] | [place] [address] | | | | | [address] | [phone] | | | | | [phone] | | | +--------+ + + + [...] | | | | | | [place] [address] | | | | | | [phone] | | | | | | | | +--------+ + + + + | 12/20/ | Office | Audiology | Elisabet Munson MS | | | 2019 | Visit | | [facility] [address] | | | [address] [place] | | | | | | [place] [address] | | | | | | [phone] | | | | | | | | +--------+ + + + + | 12/20/ | Office | Otolaryngology | Ulysses Genao MD | | | 2019 | Visit | | [address] | | | | | | [address] [place], | | | | | | [place] [address] | | | | | | [phone] | | | | | | | [...]
--- OUTSIDE RECORDS SUMMARY | ~2019-10-16 | XMS | Encounter Summary ---
Demographics + + + | Address | [address] | | | [place] [address] | + + + | Home Phone [...] Providers + +------+ + | Care Certified Technician Specialist Name | Role | Phone | [...] | [address] | [place], [place] | | | | | [place], [place] | [address] | | | | | [address] | | | | | | [phone] | | | +--------+ + + + [...] | | | | | [place] [address] | | | | | | [phone] | | | | | | | | +--------+ + + + + | 12/20/ | Office | Audiology | Elisabet Munson MS | | | 2019 | Visit | | [facility] [address] | | | | | | [address] [place] | | | | | | [place] [address] | | | | | | [phone] | | | | | | | | +--------+ + + + + | 12/20/ | Office | Otolaryngology | Ulysses Genao MD | | | 2020 | Visit | | [address] [facility] | | | | | | [address] [place], | | | | | | [place] [address] | | | | | | [phone] | | | | | | | | +--------+ + + + + documented as of this encounter Visit Diagnoses Not on filedocumented in this encounter"
--- OUTSIDE RECORDS SUMMARY | ~2019-10-16 | XMS | Encounter Summary ---
Demographics + + + | Address | [address] | | | [place] [address] | + + + | Home Phone [...] Team Providers + +------+ + | Care Electrogalvanizing Machine Operator Name | Role | Phone [...] + | 06/30/ | Refill | [facility] | Alanis, | Medication Refill | | 2018 | | MEDICINE [address] [place] [address] | MD Petrona | | | | | [facility] | [address] [place] [address] | | | | | [place] [address] | [place] [address] | | | | | [phone] | [phone] | | | | | | | [...] | | | | | [place] [address] | | | | | | [phone] | | | | | | | | +--------+ + + + + | 12/20/ | Office | Audiology | Elisabet Munson | | | 2019 | Visit | | [facility] [address] | | | | [address] [place] | | | | | | [place] [address] | | | | | | [phone] | | | | | | | | +--------+ + + + + | 12/20/ | Office | Otolaryngology | Ulysses Genao MD | | | 2019 | Visit | | [address] | | | | | | [address] [place], | | | | | | [place] [address] | | | | | | [phone] | | | | | | | | +--------+ + + + + documented as of this encounter Visit Diagnoses + + | Diagnosis | + + | Chronic bilateral low back pain without sciatica | + + documented in this encounter"
--- OUTSIDE RECORDS SUMMARY | ~2019-10-16 | XMS | Encounter Summary ---
Demographics + + + | Address | [address] | | | [place] [address] | + + + | Home Phone [...] Providers + +------+ + | Care Server Programmer Name | Role | Phone [...] | Management | Chronic | Taqueria Strong, MASH PROCESSING OPERATOR | Rosi Armijo, ANP | | | | | neck pain | [address] | [address] | | | | | Low back | [place] | PAKO GAN | | | | | pain | [place] | [place], [place] | | | | | | [address] | [address] | | | | | | Phone: | | | | | | | [phone] | | | | | | | Fax: | | | | | | | [phone] | | +--------+--------+ + + + + Encounter Details +--------+---------+ + + + | Date | Type | Department | Care Team | Description | +--------+---------+ + + + | 08/09/ | Office | [facility] Comprehensive | Rosi Antonio, | Fibromyalgia | | 2013 | Visit | Pain Center at | ANP | syndrome 729.1 | | | | [facility] | | (Primary Dx); Major | | | | [address] | | depressive disorder, | | | | Mailcode: CH15P | | recurrent episode, | | | | [facility] | | moderate ([facility]); | | | | and Healing, | | Adjustment disorder | | | | Building | | with anxiety; LBP | | | | Floor [place], [place] | | (low back pain); | | | | [address] | | Osteopenia; Chronic | | | | [phone] | | Bilateral Shoulder | | | [...] al. Diabetes Care. 28(1):89-94, 2004; Anca M, TELEPHONE SURVEYOR Drugs. [address] 1:25-30; discussion 45-6, [...] fro m the original. [facility] Comprehensive Pain Center Return Visit 08/09/2013 Belinda [...] never going to her local hospital in [place] for any medical evaluations. Belinda is very [...] Overview Note: Surgery 05/15/08 Dr Ricky Garnett [place] JEY karlos to get operative reports Osteopenia [...] and a pain drawing which I reviewed. [facility] Brief Pain Inventory: (ten= worst [...] regions, she notes pain in her right sikh, bilateral shoul crista muscles, left elbow, entire [...] right knee Lumbar fusion 05/2008, ' & L5-O1jchblc with bone spur removals Appendectomy Cholecystectomy section [...] Hives Mainly in the legs Clindamycin Codeine Peqietd-Tsjxkbatgb-Pyj-Caff Balance problems Fioricet W/Codeine (Kmwxxiurqc-Paxbtenofb-Pvm-Cod) Keflex (Cephalexin) Morphine IM ( only in [facility]) made gut pain worse 08/27/06: Trial of oral MSIR caused leg swelling Penicillins Sulfa (Sulfonamide Antibiotics) Tramadol Ms. Meehan reports no side effects. The Review of Systems provided by Ms. Meehan and documented by the [facility] was reviewed. This data was entered [...] al. Diabetes Care. 28(1):89-94, 2004; Anca M, TELEPHONE SURVEYOR Drugs. [address] 1:25-30; discussion 45-6, [...] of which more than 50% was spent wyzzz-bf-itft in r eviewing pain questionnaire, medical record, [...]
--- OUTSIDE RECORDS SUMMARY | ~2019-10-16 | XMS | Encounter Summary ---
Demographics + + + | Address | [address] | | | [place] [address] | + + + | Home Phone [...] Providers + +------+ + | Care Tank Truck Engine Mechanic Name | Role | Phone [...] + + | 12/13/ | Telephone | [facility] | Alanis, | Follow-up | | 2019 | | MEDICINE [address] [place] [address] | MD Petrona | | | | | [facility] | [address] [place] [address] | | | | | [place] [address] | [place] [address] | | | | | [phone] | [phone] | | | | | | | [...] | | | | | [place] [address] | | | | | | [phone] | | | | | | | | +--------+ + + + + | 12/20/ | Office | Audiology | Elisabet Munson MS | | | 2019 | Visit | | [facility] [address] | | | | | | [address] [place] | | | | | | [place] [address] | | | | | | [phone] | | | | | | | | +--------+ + + + + | 12/20/ | Office | Otolaryngology | Ulysses Genao MD | | | 2020 | Visit | | [address] | | | | | | [address] [place], | | | | | | [place] [address] | | | | | | [phone] | | | | | | | | +--------+ + + + + documented as of this encounter Visit Diagnoses Not on filedocumented in this encounter"
--- OUTSIDE RECORDS SUMMARY | ~2019-10-16 | XMS | Encounter Summary ---
Demographics + + + | Address | [address] | | | [place] [address] | + + + | Home Phone [...] Providers + +------+ + | Care Distribution Field Engineer Name | Role | Phone [...] [address] | | | | | [place], [place] | [place] | | | | | [address] | [address] | | | | | [phone] | [phone] | | | | | | | [...]
--- OUTSIDE RECORDS SUMMARY | ~2019-10-16 | XMS | Encounter Summary ---
Demographics + + + | Address | [address] | | | [place] [address] | + + + | Home Phone [...] Team Providers + +------+ + | Care Knurling Machine Tender Name | Role | Phone [...] + + | 06/24/ | Telephone | [facility] | Alanis, | Medication Orders | | 2018 | | MEDICINE [address] [place] [address] | MD Petrona | | | | | [facility] | [address] [place] [address] | | | | | [place] [address] | [place] [address] | | | | | [phone] | [phone] | | | | | | | [...] | | | | | [place] [address] | | | | | | [phone] | | | | | | | | +--------+ + + + + | 12/20/ | Office | Audiology | Dariokeyla MS Elisabet | | | 2019 | Visit | | [facility] [address] | | | | | [address] [place] | | | | | | [place] [address] | | | | | | [phone] | | | | | | | | +--------+ + + + + | 12/20/ | Office | Otolaryngology | Ulysses Genao MD | | | 2019 | Visit | | [address] | | | | | | [address] [place], | | | | | | [place] [address] | | | | | | [phone] | | | | | | | | +--------+ + + + + documented as of this encounter Visit Diagnoses Not on filedocumented in this encounter"
--- OUTSIDE RECORDS SUMMARY | ~2019-10-16 | XMS | Encounter Summary ---
Demographics + + + | Address | [address] | | | [place] [address] | + + + | Home Phone [...] Providers + +------+ + | Care Hoop Puncher Name | Role | Phone | [...] as of this encounter Discharge Summaries Interface, Magistrate Judge In - 08/30/2005 2:07 AM PST [id number] GEOVANNI Barnes Admission Date: 07/24/2005 Discharge Date: [...] for an appointment. Joanna Ritchie M.D. / [id number] / [id number] / [id number] / Electronically signed by Chris Padgett 08-29-2005 03:28:23 PM documented i n this encounter Plan of Treatment Not on filedocumented as of this encounter Visit Diagnoses Not on filedocumented in this encounter"
--- OUTSIDE RECORDS SUMMARY | ~2019-10-16 | XMS | Encounter Summary ---
[...] Providers + +------+ + | Care Mail Room Name | Role | Phone | [...] | Transcriptions | + + | Interface, Diabetes Trainer In - 06/05/2005 5:20 AM PST | | [id number] | | [id number] GEOVANNI Barnes | | | | Date: 12/06/2004 | | | | Attending Surgeon: Chris Padgett M.D. | | | | Quotation Clerk(s): | | | | Preoperative Diagnosis(es): | [...] | | BW / HS | | [id number] / [id number] / [id number] / | | | | | | | | | | | | Electronically signed by Chris Padgett 12-31-2004 03:02:45 PM | + + documented in this encounter Visit Diagnoses Not on filedocumented in this encounter"
--- OUTSIDE RECORDS SUMMARY | ~2019-10-16 | XMS | Encounter Summary ---
[...] Providers + +------+ + | Care County Attorney Name | Role | Phone [...] of this encounter Progress Notes Interface, Electrical Inspector In - 01/12/2005 10:09 AM PDT [id number] GEOVANNI Barnes Clinic Date: 12/19/2004 Clinic: General [...] as vitamin B12. Melisa Thorne / SHARIF [id number] / [id number] / [id number] / [id number] cc: Pedrito Gutierrez M.D. [address] [address] FAX: [phone] Chris Padgett M.D. General Surgery, [facility] Electronically signed by Kenisha Melton 12-25-2004 04:28:39 PM documented i n this encounter Plan of Treatment Not on filedocumented as of this encounter Visit Diagnoses Not on filedocumented in this encounter"
--- OUTSIDE RECORDS SUMMARY | ~2019-10-16 | XMS | Encounter Summary ---
Demographics + + + | Address | [address] | | | [place] [address] | + + + | Home Phone [...] Team Providers + +------+ + | Care Netsuite Consultant Name | Role | Phone | [...] | | escu | [address] | [place] [address] | | | | | Procedures | [place], | Phone: | | | | | OFFICE VISIT | [place] | [phone] | | | | | REGULAR | [address] | Fax: | | | | | | Phone: | [phone] | | | | | | [phone] | | | | | | | Fax: | | | | | | | [phone] | | +--------+--------+ + + + + Encounter Details +--------+---------+ + + + | Date | Type | Department | Care Team | Description | +--------+---------+ + + + | 12/07/ | Office | [facility] | Ulysses Dsouza MD | BPPV (benign | | 2015 | Visit | OTOLARYNGOLOGY [address] | [address] | paroxysmal | | | | [address] | [address] [place], | positional vertigo), | | | | [place] | [place] [address] | left (Primary Dx); | | | | [address] | [phone] | Vertigo of central | | | | [phone] | | origin, left | +--------+---------+ + [...] MD - 12/07/2014 1:48 PM PDT [facility] OTOLARYNGOLOGY [address] [facility] [address] OFFICE NOTE ULYSSES DSOUZA MD Patient: BELINDA MEEHAN Admitting: MR #: [id number] LOC: PT TYPE: Adm Date: 12/07/2014 : 1960 DATE OF VISIT: 12/07/2014. The patient is having a tremendous problem with her balance. At times she gets a spinning type sensation, other times she just tends to fall down and recently she has developed a w rist drop on the right arm. She has seen an orthopedist who put her in a splint. [facility] ent has completed an MRI scan [...] there is a question of a med icabeebe healthcare involvement. The patient would repeatedly ask [...] 12/07/2014 13:48:42 Transcribed on 12/08/2014 04:46:49 by [facility] job# [id number] Confirmation #: [id number] signed by Ulysses Dsouza MD at 12/08/2014 8:52 AM Ulysses Arnold MD - 12/07/2014 1:43 PM PDTSee dictation #[id number] signed by Dmitriy Dsouza MD at 12/07/2014 [...] | | | | | [place] [address] | | | | | | [phone] | | | | | | | | +--------+ + + + + | 12/20/ | Office | Audiology | Elisabet Munson MS | | | 2019 | Visit | | [facility] [address] | | | | | [address] [place] | | | | | | [place] [address] | | | | | | [phone] | | | | | | | | +--------+ + + + + | 12/20/ | Office | Otolaryngology | Ulysses Dsouza MD | | | 2019 | Visit | | [address] | | | | | | [address] [place], | | | | | | [place] [address] | | | | | | [phone] | | | | | | | | +--------+ + + + + documented as of this encounter Visit Diagnoses + + | Diagnosis | + + | BPPV (benign paroxysmal positional vertigo), left - Primary | + + | Vertigo of central origin, left | + + documented in this encounter
--- OUTSIDE RECORDS SUMMARY | ~2019-10-16 | XMS | Encounter Summary ---
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 Diagnosis: Bryan I: 1. (296.32) Major depressive disorder, recurrent, moderate. 2. (309.24) Adjustment disorder with anxiety. 3. 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 Bryan II: Deferred Bryan III: abdominal pain, migraine headache, low back pain. Bryan IV: low finances Bryan V: GAF 55-60 Plan: Return with next medical follow-up appointment. Check mood, knee surgery, pacing, relaxati on, activity, distraction. Continue cognitive/behavioral therapy. Discuss need for further sessions. Total time spent with patient was approximately 45 minutes. LUKASZ CHARLES PHD [facility] [address] [facility], [address]th [place] [address] documented in this encount er Plan of [...]
--- OUTSIDE RECORDS SUMMARY | ~2019-10-16 | XMS | Encounter Summary ---
Demographics + + + | Address | [address] | | | [place] [address] | + + + | Home Phone [...] Team Providers + +------+ + | Care Lubrication Technician Name | Role | Phone | [...] | | | | [place] | [place] [address] | IDIOPATHIC; Lumbar | | | | [address] | [phone] | radiculopathy | | | | [phone] | | primarily right; S/P | | [...] blood sugars if you a re diabetic. watermaster risk can lead to osteoporosis which is [...] were performed by a Dr. García in [place]. The patient is unable to take NSAID's [...] visit. ALLERGIES: Allergies Allergen Reactions Amitriptyline Hcl Fqeqmcfmue-Acrn-Ncbghffa Cephalexin Ciprofloxacin Clarithromycin Clindamycin Hcl Codeine Sulfate [...] deficits with short or group home memory. She has appropriate fund of [...] PT (multiple sessions over the years) and care mgr. Unfortunately she nelly nues to have significant [...] she is starting physical therapy again in [place]. 5. I will see the patient 2 [...] Petrona | | | | | | [facility] [address] [place] | | | | | | [place] [address] | | | | | | [phone] | | | | | | | | +--------+ + + + + | 12/20/ | Office | Audiology | Elisabet Munson MS | | | 2019 | Visit | | [facility] [address] | | | [address] [place] | | | | | | [place] [address] | | | | | | [phone] | | | | | | | | +--------+ + + + + | 12/20/ | Office | Otolaryngology | Ulysses Genao MD | | | 2019 | Visit | | [address] [place] | | | | | | [address] [place], | | | | | | [place] [address] | | | | | | [phone] | | | | | | | [...] Belinda Meehan presents to the | [facility] | | fluoroscopy suite for fluoroscopically guided bilateral sacroiliac [facility] | | joint steroid injections [...] + | [facility] | [address] | [place], [place] | [phone] | | [facility] | | [address] | | | - IMAGING | | [...] Belinda Meehan presents to the | [facility] | | fluoroscopy suite for fluoroscopically guided bilateral sacroiliac [facility] | | joint steroid injections [...] [address] | [place] | [phone] | | [facility] | | [address] | | | - IMAGING | | [...]
--- OUTSIDE RECORDS SUMMARY | ~2019-10-16 | XMS | Encounter Summary ---
[...] Providers + +------+ + | Care Media Planner / Buyer Name | Role | Phone | [...] Pavilion | | | | | | [place], [place] | | | | | | [address] | | | | | | [phone] | | | +--------+ + + + [...]
--- OUTSIDE RECORDS SUMMARY | ~2019-10-16 | XMS | Encounter Summary ---
Demographics + + + | Address | [address] | | | [place] [address] | + + + | Home Phone [...] Team Providers + +------+ + | Care Sludge Control Attendant Name | Role | Phone | [...] 2006 | Visit | Rheumatology 3245 | SUPERVISOR HEAVY EQUIPMENT | (Primary Dx); | | | | TRACE Sharmila Schilling | | Fibromyalgia; | | | | Mailcode: OPC5 | | Fibromyalgia | | | | Outpatient Clinic | | | | | | Building [place], | | | | | | [place] [address] | | | | | | [phone] | | | +--------+---------+ + + + [...]
--- OUTSIDE RECORDS SUMMARY | ~2019-10-16 | XMS | Encounter Summary ---
Demographics + + + | Address | [address] | | | [place] [address] | + + + | Home Phone [...] Providers + +------+ + | Care Willow Analyst Name | Role | Phone | [...] + | 11/23/ | Telephone | [facility] | Luther Brito MD | Other | | 2018 | | GASTROENTEROLOGY | [address] [facility] | | | | | [address] [facility] | [place], [place] | | | | | [address] [place], [place] | [address] | | | | | [address] | [phone] | | | | | [phone] | | | +--------+ + + + [...] | | | | | [place] [address] | | | | | | [phone] | | | | | | | | +--------+ + + + + | 12/20/ | Office | Audiology | Elisabet Munson MS | | 2019 | Visit | | [facility] [address] | | | | | [address] | | | | | | [place] [address] | | | | | | [phone] | | | | | | | | +--------+ + + + + | 12/20/ | Office | Otolaryngology | Ulysses Genao MD | | | 2019 | Visit | | [address] | | | | | | [address] [place], | | | | | | [place] [address] | | | | | | [phone] | | | | | | | | +--------+ + + + + documented as of this encounter Visit Diagnoses Not on filedocumented in this encounter"
--- OUTSIDE RECORDS SUMMARY | ~2019-10-16 | XMS | Encounter Summary ---
Demographics + + + | Address | [address] | | | [place] [address] | + + + | Home Phone [...] Providers + +------+ + | Care Manager Intel Name | Role | Phone | + [...] Pavilion | | | | | | [place], [place] | | | | | | [address] | | | | | | [phone] | | | +--------+---------+ + + + [...] take place on the hill at the [facility]: Surgeries scheduled in the [facility]): registration is located on the 4th floor of [facility] (Day Surgery). Surgeries scheduled in the [facility]: registration is located on the 9th floor. Surgeries scheduled in [facility]: registration is located on the 6th floor. Surgeries scheduled in the [facility]: registration is located i n the [facility] on the first floor. For surgeries scheduled to take place at the [facility]: registration is l [...]
--- OUTSIDE RECORDS SUMMARY | ~2019-10-16 | XMS | Encounter Summary ---
Demographics + + + | Address | [address] | | | [place] [address] | + + + | Home Phone [...] Providers + +------+ + | Care Supervisor Instrument Maintenance Name | Role | Phone | [...] + + | 11/03/ | Telephone | [facility] | Alanis, | Headache | | 2019 | | MEDICINE [address] [place] [address] | MD Petrona | | | | | [facility] | [address] [facility] | | | | | [place] [address] | [place] [address] | | | | | [phone] | [phone] | | | | | | | [...] | | | | | [place] [address] | | | | | | [phone] | | | | | | | | +--------+ + + + + | 12/20/ | Office | Audiology | Elisabet Munson MS | | 2019 | Visit | | [facility] [address] | | | | [address] | | | | | | [place] [address] | | | | | | [phone] | | | | | | | | +--------+ + + + + | 12/20/ | Office | Otolaryngology | Ulysses Genao MD | | | 2020 | Visit | | [address] | | | | | | [address] [place], | | | | | | [place] [address] | | | | | | [phone] | | | | | | | | +--------+ + + + + documented as of this encounter Visit Diagnoses Not on filedocumented in this encounter"
--- OUTSIDE RECORDS SUMMARY | ~2019-10-16 | XMS | Encounter Summary ---
Demographics + + + | Address | [address] | | | [place] [address] | + + + | Home Phone [...] Providers + +------+ + | Care Air Breaker Operator Name | Role | Phone | [...] + + | 04/25/ | Telephone | [facility] | Alanis, | Paperwork; Pre-Op | | 2018 | | MEDICINE [address] [place] [address] | MD Petrona | | | | | [facility] | [address] [place] [address] | | | | | [place] [address] | [place] [address] | | | | | [phone] | [phone] | | | | | | | [...] | | | | | [place] [address] | | | | | | [phone] | | | | | | | | +--------+ + + + + | 12/20/ | Office | Audiology | Elisabet Munson MS | | | 2019 | Visit | | [facility] [address] [place] | | | | | | [place] [address] | | | | | | [phone] | | | | | | | | +--------+ + + + + | 12/20/ | Office | Otolaryngology | Ulysses Genao MD | | | 2019 | Visit | | [address] | | | | | | [address] [place], | | | | | | [place] [address] | | | | | | [phone] | | | | | | | | +--------+ + + + + documented as of this encounter Visit Diagnoses Not on filedocumented in this encounter"
--- OUTSIDE RECORDS SUMMARY | ~2019-10-16 | XMS | Encounter Summary ---
Demographics + + + | Address | [address] | | | [place] [address] | + + + | Home Phone [...] Team Providers + +------+ + | Care Washerette Machine Operator Name | Role | Phone | + +------+ + | Sulaiman Carrera MD | PCP | | + +------+ + Encounter Details +--------+ + + + + | Date | Type | Department | Care Team | Description | +--------+ + + + + | 10/05/ | Ancillary | Registration [address]181 | Ramon Ibarra, | | | 2006 | Registratio | [facility] Naeem Mcrae | [address] [facility] | | | | [address] | [address] Mailcode: RPB07 | [place], [place] | | | | | [place], [place] | [address] | | | | | [address] | [phone] | | | | | [phone] | | | +--------+ + + + [...]
--- OUTSIDE RECORDS SUMMARY | ~2019-10-16 | XMS | Encounter Summary ---
Demographics + + + | Address | [address] | | | [place] [address] | + + + | Home Phone [...] | | | | [place], | [address] | | | | | | [place] | Phone: | | | | | | [address] | [phone] | | | | | | Phone: | Fax: | | | | | | [phone] | [phone] | | | | | | Fax: | | | | | | | [phone] | | +--------+ + + + + + Reason for Visit +--------+ + | Reason | Comments | +--------+ + | Other | bladder/ bowel issues | +--------+ + Encounter Details +--------+---------+ + + + | Date | Type | Department | Care Team | Description | +--------+---------+ + + + | 10/15/ | Office | [facility] | Alanis, | Mixed stress and | | 2017 | Visit | MEDICINE [address] [place] [address] | MD Petrona | urge urinary | | | | [facility] | [address] [place] [address] | incontinence | | | | [place] [address] | [place] [address] | (Primary Dx); OLIVER | | | | [phone] | [phone] | (obstructive sleep | | | | [...] 1,000 mcg 1,000 mcg [address] Q[address] Days [facility] Maddie Thapa MD 1,000 mcg at 10/15/17 1149 ALLERGIES Allergies Allergen Reactions Codeine Sulfate Nausea Only Levofloxacin Hives, Itching and Rash Amitriptyline Hcl Other (See Comments) Confused and questionable for seizures Idkcgftnrh-Stpa-Ccqdyesr Cephalexin Hives Duloxetine Migraines and nausea Ketorolac Hives Morphine Swelling Ropinirole Hcl Hives Tramadol Hcl Nausea Only Bfxbtoylwy-Fcpw-Ciaqvigg Hives and Rash Ciprofloxacin Hives and Rash [...] warrant a GI consult. - * [facility] Gastroenterology - AMB Referral; Future 5. S/P gastric bypass - * [facility] Ref[facility]; Future 6. Nausea - ondansetron (ZOFRAN ODT) 4 mg disintegrating tablet; Take 1 tablet by mouth every 6 hours . Dispense: 120 tablet; Refill: 3 FOLLOW-UP Return in about 3 months (around 01/15/2018). Note: Parts of this documentwere created using Worklight speech recognition software. As a r esult, [...] | | | | | [place] [address] | | | | | | [phone] | | | | | | | | +--------+ + + + + | 12/20/ | Office | Audiology | Elisabet Munson MS | | 2019 | Visit | | [address] | | | | | | [address] [place] | | | | | | [place] [address] | | | | | | [phone] | | | | | | | | +--------+ + + + + | 12/20/ | Office | Otolaryngology | Ulysses Genao MD | | | 2020 | Visit | | [address] | | | | | | [address] [place], | | | | | | [place] [address] | | | | | | [phone] | | | | | | | [...] | | | | First dose on [facility] 10/15/17 at 1215 | | [...]
--- OUTSIDE RECORDS SUMMARY | ~2019-10-16 | XMS | Encounter Summary ---
[...] | | | [facility] | [place], [place] | | | | | [address] | [address] | | | | | [address] | [phone] | | | | | Physician's | | | | | | Pavilion, unm hospital floor | | | | | | [place], [place] | | | | | | [address] | | | | | | [phone] | | | +--------+ + + + [...] | | | | | performed at [facility] | | | | | | [place] [place] [...] + + + | [facility] | [address] | [place] [address] | | | LABORATORY | | | [...] | + + + + + | [facility] | [address] | [place] [address] | | | LABORATORY | | | [...] | NaomiU/aida | | | | | [facility] [...] + + + | [facility] | [address] | [place] [address] | | | LABORATORY | | | [...] | | | SERUM | performed by [facility] | | | | | | [facility] [...] | + + + + + | [facility] | [address] | [place] [address] | | | LABORATORY | | | [...] + | [place] DEPARTMENT OF | [address] [facility] | [place] [address] | | | PATHOLOGY | [address] | | | + + + + + | [place] DEPARTMENT OF | [address] [facility] | [place] [address] | | | PATHOLOGY | [address] [...] + | [facility] | [facility] | [place] [address] | | | PATHOLOGY | [address] | | | + + + + + | [facility] | [facility] | [place] [address] | | | PATHOLOGY | [address] | | | + + + + + documented in this encounter Visit Diagnoses Not on filedocumented in this encounter"
--- OUTSIDE RECORDS SUMMARY | ~2019-10-16 | XMS | Encounter Summary ---
Demographics + + + | Address | [address] | | | [place] [address] | + + + | Home Phone [...] Team Providers + +------+ + | Care Sandblaster Supervisor Name | Role | Phone | [...] | | 2005 | | Center at [facility] [address] | | endoscopy procedure | | | | [address] My[address] | | | | | | Mailcode: [place] | | | | | | [facility] and | | | | | | [place] [address] | | | | | | [place], [place] | | | | | | [address] | | | | | | [phone] | | | +--------+ + + + [...] doscopy in the Gastroenterology Clinic at [facility], see transcri bed report. Earnest Ward documented in this encount er Plan of Treatment + + +--------+ + + | Name | Type | Priori | Associated Diagnoses | Order Schedule | | | | ty | | | + + +--------+ + + | NM GI TRACT IMAGING, | Procedures | Routin [...]
--- OUTSIDE RECORDS SUMMARY | ~2019-10-16 | XMS | Encounter Summary ---
[...] Providers + +------+ + | Care Stone Rigger Name | Role | Phone | [...] | | | | | | | [address] | | | | | | | [address] | | | | | | | [place], | | | | | | | [place] | | | | | | | [address] | | | | | | | Phone: | | | | | | | [phone] | | | | | | | Fax: | | | | | | | [phone] | +--------+--------+ + + + + Encounter Details +--------+ + + + + | Date | Type | Department | Care Team | Description | +--------+ + + + + | 12/26/ | Hospital | [facility] [address] | Chris Runao, | | | 2007 - | Encounter | [address] | MD [address] [facility] | | | | | [place], [place] | [address] | | | 12/30/ | | [address] | [place], [place] | | | 2007 | | [phone] | [address] | | | | | | [phone] | | | | | | | [...] Follow Up: Follow up to [facility] surgery clinic in one week for [...] follow-up) Weigh daily: no Call: [facility] surgery clinic at If you have [...] weeks Other: Follow up to [facility] surgery clinic in 1 week for efren removal. Follow Up Tests: (Tests at [facility] must be entered into Epic) None Condition [...] lize them. She states she has a drop wirer and raised toilet seat. No further needs. [...] of function: Reported by Patient Ambulation: Walked MACARONI MAKER with forearm crutches or FWW approx 3 [...] loves to clean" City of Residence: [facility] Patient's current discharge plan: Plan to [...] as I can" Communication / Other: Language: Faroese Physical Assessment PROM: LE's WFL AROM: LE's [...] situation: Lives with son in apartment in [place], [place]. Pre-admission services in place: Son is caregiver paid by [facility] to provide 20hrs/ month of care. [facility] supervisor uranium processing is Reyna Ocasio, , ext [phone]. Already has @ home: shower chair, walker, crutches, cane. Pt/Family/Caregiver goals: Pt wants to return home, but thinks she will need additional hel p with showering, light housekeeping, meal prep. She would like [facility] to authorize addition al paid hours for her son. Transportation plans upon discharge: Transportation connection (volunteers) . Assembly Line Upholsterer who brought pt to [place] is Pablo All @ [phone]. NEED 24 HOUR NOTICE TO ARRAN GE. Anticipated discharge needs: Transportation coordination; Possible increased in home servic es if available. Left message for supervisor uranium processing Reyna Amarjit to call me to discuss process and eligibility requ irements for increased in-home services for a short time. Surgical procedure was an exp lap and lysis of adhesions, so these needs should be short lived. Expect discharge Thursday at [place]. [place] Carpio [id number]. 12/29/07 update: received call back from [facility] supervisor uranium processing Reyna Ocasio. She will make home vi [...] can be utilized for transport home through [facility] [phone]. LIUDMILA Carpio [address]. 12/31/07: Pt ready for discharge. Pt called transportation line herself and has volunteer wheelchair van driver here to take her home. I notified medicaid supervisor uranium processing by [place]ic[place] [id number]. hite, Debbiearnoldo - 12/29/2007 9:52 AM PDTFormatting [...] diet in 5-7 days, rec nutrition support #[id number] ducristaAmber Katie - 12/28 9:43 AM PDT [...] will order Oxycontin to start. Has a aviation medicine specialist at home [place]: Limit ambulation if [...] pain at home. Pt of Miranda Lambert ASSET SPECIALIST at [facility]. Side Effects: Nausea/Vomiting: none Urticaria: none [...] DEPARTMENT OF | [address] | [place] [address] | | | PATHOLOGY | [address] | | | + + + + + | [facility] DEPARTMENT OF | [address] [facility] | [place] [address] | | | PATHOLOGY | [address] [...] [facility] | [address] [facility] | [place] [address] | | | PATHOLOGY | [address] | | | + + + + + | [facility] | [address] [facility] | [place] [address] | | | PATHOLOGY | [address] [...] [facility] DEPARTMENT OF | [address] [facility] | [place] [address] | | | PATHOLOGY | [address] | | | + + + + + | [facility] DEPARTMENT OF | [address] [facility] | [place] [address] | | | PATHOLOGY | [address] [...] DEPARTMENT OF | [address] | [place] [address] | | | PATHOLOGY | [address] | | | + + + + + | [facility] DEPARTMENT OF | [address] | [place] [address] | | | PATHOLOGY | [address] [...] [facility] | [address] [facility] | [place] [address] | | | PATHOLOGY | [address] | | | + + + + + | [facility] | [facility] | [place] [address] | | | PATHOLOGY | [address] [...] + + | [facility] DEPARTMENT | [address] [place] [address] | [place] [address] | | | PATHOLOGY | [address] | | | + + + + + | [facility] | [address] [facility] | [place] [address] | | | PATHOLOGY | [address] [...] | [facility] | [facility] | [place] [address] | | | PATHOLOGY | [address] | | | + + + + + | [facility] DEPARTMENT OF | [address] | [place] [address] | | | PATHOLOGY | [address] [...] [facility] | [address] [facility] | [place] [address] | | | PATHOLOGY | [address] | | | + + + + + | [facility] | [address] [place] [address] | [place] [address] | | | PATHOLOGY | [address] [...] + | [facility] DEPARTMENT OF | [address] | [place] [address] | | | PATHOLOGY | [address] | | | + + + + + | [facility] | [address] | [place] [address] | | | PATHOLOGY | [address] | | | + + + + + OPERATION RECORD (12/27/2007 12:00 AM PDT) + + | Procedure Note | + + | Mehran Granger Md - 12/27/2007 12:00 AM [facility] [id number] | | [id number] GEOVANNI SKELTON Molly [id number] | | Date: 12/27/2007 Attending Surgeon: Chris Ruano M.D. Event Host(s): | | Mehran Granger M.D. Preoperative Diagnosis(es): [...] | | Hari Ruano. GQ / HS [id number] / [id number] / [id number] / | | | | Anesthesia: | [...] | | GQ / HS | | [id number] / [id number] / [id number] / | | | | | | [...]
--- OUTSIDE RECORDS SUMMARY | ~2019-10-16 | XMS | Encounter Summary ---
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 Continue with [place] 10/325 1 tablet three times per day [...] Belinda Meehan is a 46 y.o. female [facility] Comprehensive Pain Center Return Visit Chief Complaint: [...] 72 hours on schedule 2. Continue with [place] 10/325 1 tablet three times per day as needed for increased pain wit h activity. 3. Continue with Trileptal 150mg, 1 tablet twice a day 4. Continue with PT and psychology as scheduled 5. Follow up with Delfina Molina in 4 weeks or sooner if needed. 6. Continue with orthopedic and neurology evaluations as scheduled [facility] Comprehensive Pain Center Mail code CH 4P [facility] and [address] [address] Ty Omalley - 9:28 AM [...] Yes , Fentanyl patch documented in this [facility] Plan of Treatment Not on filedocumented [...]
--- OUTSIDE RECORDS SUMMARY | ~2019-10-16 | XMS | Encounter Summary ---
Demographics + + + | Address | [address] | | | [place] [address] | + + + | Home Phone [...] Team Providers + +------+ + | Care Ortho Nurse Name | Role | Phone | [...] | Epigastric | T, ANP | [facility] | | | | | pain Status | [place], [place] | [address] | | | | | post | [address] | [place] | | | | | bariatric | | [place], 4th | | | | | surgery | | floor | | | | | Procedures | | [place], [place] | | | | | CONSULT TO | | [address] | | | | | GI PROCEDURE | | Phone: | | | | | UNIT: EGD | | [phone] | | | | | | | Fax: | | | | | | | [phone] | +--------+--------+ + + + + Reason [...] | | | | | | Rd [place], | | | | | | | [place] | | | | | | | [address] | | | | | | | Phone: | | | | | | | [phone] | | | | | | | Fax: | | | | | | | [phone] | +--------+--------+ + + + + Encounter Details +--------+---------+ + + + | Date | Type | Department | Care Team | Description | +--------+---------+ + + + | 08/28/ | Office | Digestive Health | Chris Padgett, | Epigastric Pain | | 2008 | Visit | [place] [address] | [address] | (Primary Dx); Status | | | | Ave Mailcode: CH4S | [facility] [address] | Post Bariatric | | | | Center for [facility] | [place], [place] | Surgery | | | | and Healing, | [address] | | | | | | [phone] | | | | | [place], [place] | | | | | | [address] | | | | | | [phone] | | | +--------+---------+ + + + [...] + + +--------+ + + | PA UPPER GI | Procedures | Routin | [...] Performed At | + + + | [id number] Estimated GFR > 60 mL/min/1.73 sq m if non- | [facility] | | Belgian [id number] Estimated GFR > 60 mL/min/1.73 sq m if | DEPARTMENT OF | | [place] GFR is estimated using the MDRD equation [...] | [facility] | [address] | [place] [address] | | | PATHOLOGY | [address] | | | + + + + + | [facility] | [address] | [place] [address] | | | PATHOLOGY | [address] | | | + + + + + documented in this encounter Visit Diagnoses + + | Diagnosis | + + | Epigastric pain - Primary Abdominal pain, epigastric | + + | Status post bariatric surgery Bariatric surgery status | + + documented in this encounter"
--- OUTSIDE RECORDS SUMMARY | ~2019-10-16 | XMS | Encounter Summary ---
Demographics + + + | Address | [address] | | | [place] [address] | + + + | Home Phone [...] [address] | | | | | [place], [place] | [place], [place] | | | | | [address] | [address] | | | | | [phone] | [phone] | | | | | | | [...]
--- OUTSIDE RECORDS SUMMARY | ~2019-10-16 | XMS | Encounter Summary ---
Demographics + + + | Address | [address] | | | [place] [address] | + + + | Home Phone [...] Team Providers + +------+ + | Care Castables Worker Name | Role | Phone | [...] + + | 05/16/ | Office | [facility] | Alanis, | Chronic diarrhea | | 2019 | Visit | MEDICINE [address] [place] [address] | MD Petrona | (Primary Dx); | | | | [facility] | [address] [place] [address] | History of Zoe-en-Y | | | | [place] [address] | [place] [address] | gastric bypass; | | | | [phone] | [phone] | Fibromyalgia; Fatty | | | | [...] Surgeon: Luther Brito MD; Location: [facility] MEDICAL PROCEDURE UNIT DILATION AND CURETTAGE OF UTERUS ELBOW SURGERY FINGER TRIGGER RELEASE 2003 FINGER TRIGGER RELEASE 2010 GASTRIC BYPASS SURGERY 2004 HYSTERECTOMY 05/14/1980 JOINT REPLACEMENT Bilateral 2007 2008 KNEE ARTHROSCOPY 2005 LAPAROSCOPY 01/27/2015 LAPAROTOMY 2008 ROTATOR CUFF REPAIR 2005 SPINE SURGERY TONSILLECTOMY 1964 UPPER GASTROINTESTINAL ENDOSCOPY N/A 12/18/2017 Procedure: EGD; Surgeon: Luther Brito MD; Location: [facility] MEDICAL PROCEDURE UNIT CURRENT MEDICATIONS Current [...] 1,000 mcg 1,000 mcg Intramuscular Q30 Days [facility] Maddie Thapa MD 1,000 mcg at 04/18/19 0955 ALLERGIES Allergies Allergen Reactions Ensure Diarrhea Food Diarrhea Lactose Zdsjzqmqlm-Hwa-Hcje-Codeine Other (See Comments) Balance problems Codeine Sulfate Nausea Only Food Allergy Formula Diarrhea Ensure Levofloxacin Hives, Itching and Rash Butalbital Ropinirole Amitriptyline Hcl Other (See Comments) Confused and questionable for seizures Kejtfqolxs-Ntsu-Fqdsggii Rash duplicate Aebjoyrsen-Szcd-Srbygucu Hives and Rash Cephalexin Hives Ciprofloxacin Hives [...] 1. Parts of this documentwere created using [employer] speech recognition software. As a resu lt, [...] | | | | | [place] [address] | | | | | | [phone] | | | | | | | | +--------+ + + + + | 12/20/ | Office | Audiology | DariokeylaElisabet MS | | | 2019 | Visit | | [facility] [address] | | | | | [address] [place] | | | | | | [place] [address] | | | | | | [phone] | | | | | | | | +--------+ + + + + | 12/20/ | Office | Otolaryngology | Ulysses Genao MD | | | 2019 | Visit | | [address] | | | | | | [address] [place], | | | | | | [place] [address] | | | | | | [phone] | | | | | | | [...]
--- OUTSIDE RECORDS SUMMARY | ~2019-10-16 | XMS | Encounter Summary ---
Demographics + + + | Address | [address] | | | [place] [address] | + + + | Home Phone [...] Team Providers + +------+ + | Care Calculus Tutor Name | Role | Phone | [...] | | 2006 | | Faculty at [place] | [address] | | | | | for [facility] and | [place], [place] | | | | | Healing [address] | [address] | | | | | Ave Mailcode: | [phone] | | | | | CH12A [facility] | | | | | | Health and Healing, | | | | | | [facility] | | | | | | [place], [place] | | | | | | [address] | | | | | | [phone] | | | +--------+ + + + [...]
--- OUTSIDE RECORDS SUMMARY | ~2019-10-16 | XMS | Encounter Summary ---
Demographics + + + | Address | [address] | | | [place] [address] | + + + | Home Phone [...] Team Providers + +------+ + | Care Anthropologist Name | Role | Phone | + [...] | | | Loop Mailcode: | [address] | | | | | L[address]A Physician's | [place], [place] | | | | | [address] | [address] | | | | | [place], [place] | [phone] | | | | | [address] | | | | | | [phone] | | | +--------+ + + + [...] | + + + + + | [facility] DEPARTMENT OF | [address] | [place] [address] | | | PATHOLOGY | [address] | | | + + + + + | [facility] DEPARTMENT OF | [address] | [place] [address] | | | PATHOLOGY | [address] [...] [facility] DEPARTMENT OF | [facility] | [place] [address] | | | PATHOLOGY | [address] | | | + + + + + | [facility] DEPARTMENT OF | [facility] | [place] [address] | | | PATHOLOGY | [address] [...] DEPARTMENT OF | [address] | [place] [address] | | | PATHOLOGY | [address] | | | + + + + + | [facility] DEPARTMENT OF | [address] [facility] | [place] [address] | | | PATHOLOGY | [address] [...] DEPARTMENT OF | [address] | [place], [place] [address] | | | PATHOLOGY | [address] | | | + + + + + | [facility] DEPARTMENT OF | [address] | [place] [address] | | | PATHOLOGY | [address] [...] [facility]AL [facility] | [address] | [place] [address] | | | PATHOLOGY | [address] | | | + + + + + | [facility] | [address] | [place] [address] | | | PATHOLOGY | [address] | | | + + + + + documented in this encounter Visit Diagnoses Not on filedocumented in this encounter"
--- OUTSIDE RECORDS SUMMARY | ~2019-10-16 | XMS | Encounter Summary ---
Demographics + + + | Address | [address] | | | [place] [address] | + + + | Home Phone [...] Providers + +------+ + | Care Conveyor Worker Name | Role | Phone | [...] + | 08/12/ | Refill | [facility] | Alanis, | Medication Refill | | 2017 | | MEDICINE [address] [place] [address] | MD Petrona | | | | | [facility] | [address] [place] [address] | | | | | [place] [address] | [place] [address] | | | | | [phone] | [phone] | | | | | | | [...] | | | | | [place] [address] | | | | | | [phone] | | | | | | | | +--------+ + + + + | 12/20/ | Office | Audiology | DarioElisabet ramires MS | | | 2019 | Visit | | [facility] [address] | | | | | [address] [place] | | | | | | [place], [place] [address] | | | | | | [phone] | | | | | | | | +--------+ + + + + | 12/20/ | Office | Otolaryngology | Ulysses Genao MD | | | 2019 | Visit | | [address] | | | | | | [address] [place], | | | | | | [place] [address] | | | | | | [phone] | | | | | | | | +--------+ + + + + documented as of this encounter Visit Diagnoses Not on filedocumented in this encounter"
--- OUTSIDE RECORDS SUMMARY | ~2019-10-16 | XMS | Encounter Summary ---
Demographics + + + | Address | [address] | | | [place] [address] | + + + | Home Phone [...] Providers + +------+ + | Care Appliance Fixer Name | Role | Phone [...] as of this encounter Progress Notes Interface, Buckram Sewer In - 01/12/2005 10:09 AM PDT [id number] GEOVANNI [facility] Clinic Date: 12/12/2004 Clinic: Endocrinology PHONE CONTACT NOTE The patient called me today after having surgery last week here at [facility]. Her concern was the development of [...] cushion which I have ordered today through [employer], phone #[phone] and fax #[phone]. Today, the patient will monitor the decubiti closely and will be in touch with myself and her other physician depending on the progress. She also still has [address], which may be removed in one or two weeks when she returns to the Surgery Clinic at [facility]. Beto Meeks M.D. PD / HS [id number] / [id number] / [id number] / [id number] cc: Chris Padgett M.D. documented i n this encounter Plan of Treatment Not on filedocumented as of this encounter Visit Diagnoses Not on filedocumented in this encounter"
--- OUTSIDE RECORDS SUMMARY | ~2019-10-16 | XMS | Encounter Summary ---
Demographics + + + | Address | [address] | | | [place] [address] | + + + | Home Phone [...] Team Providers + +------+ + | Care Gunner'S Mate G Name | Role | Phone | + [...] as of this encounter Progress Notes Interface, Stage Set Designer In - 07/03/2006 2:33 AM PST [id number] GEOVANNI SKELTON J [id number] Clinic Date: 06/24/2006 Clinic: Rheumatology Subjective: Belinda Meehan is a 46-year-old woman here for followup of fibromyalgia. She comes from [place] and is now also working with the [...] I will have a meeting soon with [facility] to start doing my films here, [...] 2 months. Caitlin Rivera M.S., F.N.P. / [id number] / [id number] / [id number] / [id number] cc: [facility] Electronically signed by Caitlin Rivera 07-02-2006 11:27:56 AM documented in this encounter Plan of Treatment Not on filedocumented as of this encounter Visit Diagnoses Not on filedocumented in this encounter"
--- OUTSIDE RECORDS SUMMARY | ~2019-10-16 | XMS | Encounter Summary ---
Demographics + + + | Address | [address] | | | [place] [address] | + + + | Home Phone [...] Providers + +------+ + | Care Grades 9 12 Tutor Name | Role | Phone | [...] + + | 01/04/ | Telephone | [facility] | Ulysses Genao MD | Other | | 2017 | | OTOLARYNGOLOGY [address] | [address] [facility] | | | | | [address] [facility] [address] | [address] [place], | | | | | [place] | [place] [address] | | | | | [address] | [phone] | | | | | [phone] | | | +--------+ + + + [...] | | | | | [place] [address] | | | | | | [phone] | | | | | | | | +--------+ + + + + | 12/20/ | Office | Audiology | Elisabet Munson MS | | 2019 | Visit | | [facility] [address] | | | | [address] [place] | | | | | | [place] [address] | | | | | | [phone] | | | | | | | | +--------+ + + + + | 12/20/ | Office | Otolaryngology | Ulysses Genao MD | | | 2020 | Visit | | [address] [facility] | | | | | | [address] [place], | | | | | | [place] [address] | | | | | | [phone] | | | | | | | | +--------+ + + + + documented as of this encounter Visit Diagnoses Not on filedocumented in this encounter"
--- OUTSIDE RECORDS SUMMARY | ~2019-10-16 | XMS | Encounter Summary ---
Demographics + + + | Address | [address] | | | [place] [address] | + + + | Home Phone [...] + +------+ + | Care Radio Interference Supervisor Name | Role | Phone | [...] as of this encounter Progress Notes Interface, Explosive Ordnance Disposal Manager In - 01/12/2005 10:09 AM PDT [id number] GEOVANNI [facility] Clinic Date: 12/11/2004 Clinic: Telephone [...] sent to Ms. Meehan' home address at [facility] [address] [address]. The address was confirmed with Ms. Meehan prior to sending. Ms. Meehan has a followup appointment in Dr. Padgett's clinic on December 19, 2004. Nathalia Richard R.N., B.S.N. Liliya Kirkpatrick. / [id number] / [id number] / [id number] / Electronically signed by Nuris Chapman 12-20-2004 05:05:06 PM docushazia i n this encounter Plan of Treatment Not on filedocumented as of this encounter Visit Diagnoses Not on filedocumented in this encounter"
--- OUTSIDE RECORDS SUMMARY | ~2019-10-16 | XMS | Encounter Summary ---
Demographics + + + | Address | [address] | | | [place] [address] | + + + | Home Phone [...] Providers + +------+ + | Care Assignment Editor Name | Role | Phone | [...] | | | | | Procedures | [address] | | | | | | CONSULT TO | Mychal Kovacs | | | | | | NEUROLOGY | [place], [place] | | | | | | | [address] | | +--------+--------+ + + + + Reason for Visit + + + | Reason | Comments | + + + | Back pain | | + + + Encounter Details +--------+---------+ + + + | Date | Type | Department | Care Team | Description | +--------+---------+ + + + | 10/03/ | Office | [facility] Comprehensive | Miranda Lambert, | Falling; | | 2009 | Visit | Pain Center at | ANP | Fibromyalgia; LBP | | | | [facility] | | (low back pain); | | | | [address] | | Encounter for | | | | Mailcode: CH15P | | Long-Term (Current) | | | [facility] | | Use of Opioids; | | | | and Healing, | | Hypothyroidism; | | | | | | Metabolic syndrome X | | | | Floor [place], [place] | | 250.80; Major | | | | [address] | | depressive disorder, | | | | [phone] | | recurrent episode, | | | [...] Schedule an appointment with Dr. Cesar SHEEHAN [facility] Neurology - If you continue [...] Belinda Meehan is a 49 y.o. female [facility] Comprehensive [...] has be completed, which I reviewed. [facility] Brief Pain Inventory: (ten= worst possible pain [...] it no help 4. Dr. Ricky SHEEHAN [facility] did spine surgery last seen [...] 08/2007 right knee Hx lumbar fusion 05/2008 [id number] with bone spur removals Hx appendectomy Hx cholecystectomy Hx section Hx hysterectomy Gastric bypass Mayra Padgett wt 278 01/18 Paniculectomy Family History Problem Relation Cancer Mother Heart Father Additional Family History Father Migraine Additional Family History Mother Migraine Taniya Guerrero MD [facility] Neurology 2007 evaluation of migraines: [...] the names of 3 headache specialists in [place]- Dr. Koby García, Dr. Dakota Sweet and [...] a neurologist Dr. Taniya Guerrero here at [facility] at that time headaches were due to medication rebound with prison use of opioids and m igraine abortive [...] and there is no evidence to support prison benefit of opioids for this pa in [...] to schedule a follow up appointment with [facility] neurologists Dr. Guerrero, for falls [...] to taper off gabapentin 2. Order for [facility] neurology Dr. Taniya Guerrero if [...] [facility] Mail code CH 4P [facility] [address] [place] [address] Ailyn Foster 1:03 PM PDTCMA History: [...]
--- OUTSIDE RECORDS SUMMARY | ~2019-10-16 | XMS | Encounter Summary ---
Demographics + + + | Address | [address] | | | [place] [address] | + + + | Home Phone [...] Providers + +------+ + | Care Order Clerk Name | Role | Phone [...] + | 01/17/ | Refill | [facility] | Alanis, | Medication Refill | | 2018 | | MEDICINE [address] [place] [address] | MD Petrona | | | | | [facility] | [address] [place] [address] | | | | | [place] [address] | [place] [address] | | | | | [phone] | [phone] | | | | | | | [...] | | | | | [place] [address] | | | | | | [phone] | | | | | | | | +--------+ + + + + | 12/20/ | Office | Audiology | DarioElisabet ramires MS | | | 2019 | Visit | | [facility] [address] | | | | | [address] [place] | | | | | | [place], [place] [address] | | | | | | [phone] | | | | | | | | +--------+ + + + + | 12/20/ | Office | Otolaryngology | Ulysses Genao MD | | | 2019 | Visit | | [address] | | | | | | [address] [place], | | | | | | [place] [address] | | | | | | [phone] | | | | | | | | +--------+ + + + + documented as of this encounter Visit Diagnoses Not on filedocumented in this encounter"
--- OUTSIDE RECORDS SUMMARY | ~2019-10-16 | XMS | Encounter Summary ---
Demographics + + + | Address | [address] | | | [place] [address] | + + + | Home Phone [...] | | | | | Procedures | [address] | | | | | | CONSULT TO | Mychal Kovacs | | | | | | NEUROLOGY | [place], [place] | | | | | | | [address] | | +--------+--------+ + + + + Reason for Visit + + + | Reason | Comments | + + + | Back pain | | + + + Encounter Details +--------+---------+ + + + | Date | Type | Department | Care Team | Description | +--------+---------+ + + + | 10/03/ | Office | [facility] Comprehensive | Miranda Lambert, | Falling; | | 2009 | Visit | Pain Center at | ANP | Fibromyalgia; LBP | | | | [facility] | | (low back pain); | | | | [address] | | Encounter for | | | | Mailcode: CH15P | | Long-Term (Current) | | | | [facility] | | Use of Opioids; | | | | and Healing, | | Hypothyroidism; | | | | | | Metabolic syndrome X | | | | Floor [place], [place] | | 250.80; Major | | | | [address] | | depressive disorder, | | | | [phone] | | recurrent episode, | | | [...] Schedule an appointment with Dr. Cesar SHEEHAN [facility] Neurology - If you [...] Belinda Meehan is a 49 y.o. female [facility] Comprehensive [...] it no help 4. Dr. Ricky SHEEHAN [facility] spine did spine surgery last seen [...] 08/2007 right knee Hx lumbar fusion 05/2008 [id number] with bone spur removals Hx appendectomy Hx cholecystectomy Hx section Hx hysterectomy Gastric bypass Mayra Padgett wt 278 01/18 Paniculectomy Family History Problem Relation Cancer Mother Heart Father Additional Family History Father Migraine Additional Family History Mother Migraine Taniya Guerrero MD [facility] Neurology 2007 evaluation of [...] the names of 3 headache specialists in [place]- Dr. Koby García, Dr. Dakota Sweet and [...] headaches were due to medication rebound with [place] [facility] use of opioids and m igraine abortive [...] and there is no evidence to support [place] [facility] benefit of opioids for this pa in [...] to schedule a follow up appointment with [facility] neurologists Dr. Guerrero, for [...] to taper off gabapentin 2. Order for [facility] neurology Dr. Taniya Guerrero [...] COMPREHENSIVE PAIN CENTER Mail code CH 4P [facility] [address] [place] [address] Ailyn Foster 1:03 PM PDTCMA History: [...]
--- OUTSIDE RECORDS SUMMARY | ~2019-10-16 | XMS | Encounter Summary ---
Demographics + + + | Address | [address] | | | [place] [address] | + + + | Home Phone [...] + + | 02/22/ | Telephone | [facility] | Alanis, | Medication Question | | 2018 | | MEDICINE [address] [place] [address] | MD Petrona | | | | | [facility] | [address] [place] [address] | | | | | [place] [address] | [place] [address] | | | | | [phone] | [phone] | | | | | | | [...] | | | | | [place] [address] | | | | | | [phone] | | | | | | | | +--------+ + + + + | 12/20/ | Office | Audiology | Elisabet Munson MS | | | 2019 | Visit | | [facility] [address] | | | | | [address] [place] | | | | | | [place] [address] | | | | | | [phone] | | | | | | | | +--------+ + + + + | 12/20/ | Office | Otolaryngology | Ulysses Genao MD | | | 2019 | Visit | | [address] | | | | | | [address] [place], | | | | | | [place] [address] | | | | | | [phone] | | | | | | | | +--------+ + + + + documented as of this encounter Visit Diagnoses Not on filedocumented in this encounter"
--- OUTSIDE RECORDS SUMMARY | ~2019-10-16 | XMS | Encounter Summary ---
Demographics + + + | Address | [address] | | | [place] [address] | + + + | Home Phone [...] Providers + +------+ + | Care Artificial Intelligence Specialist Name | Role | Phone | [...] + + | 03/19/ | Telephone | [facility] | Alanis, | Other (bowel issues) | | 2017 | | MEDICINE [address] [place] [address] | MD Petrona | | | | | [facility] | [address] [place] [address] | | | | | [place] [address] | [place] [address] | | | | | [phone] | [phone] | | | | | | | [...] | | | | | [place] [address] | | | | | | [phone] | | | | | | | | +--------+ + + + + | 12/20/ | Office | Audiology | Dariokeyla CeasarMS rafa | | | 2019 | Visit | | [facility] [address] | | | | | [address] [place] | | | | | | [place], [place] [address] | | | | | | [phone] | | | | | | | | +--------+ + + + + | 12/20/ | Office | Otolaryngology | Ulysses Genao MD | | | 2019 | Visit | | [address] | | | | | | [address] [place], | | | | | | [place] [address] | | | | | | [phone] | | | | | | | | +--------+ + + + + documented as of this encounter Visit Diagnoses Not on filedocumented in this encounter"
--- OUTSIDE RECORDS SUMMARY | ~2019-10-16 | XMS | Encounter Summary ---
Demographics + + + | Address | [address] | | | [place] [address] | + + + | Home Phone [...] + +------+ + | Care Entry Level Civil Engineer Name | Role | Phone [...] + + | 10/19/ | Telephone | [facility] | Alanis, | Lab Order | | 2017 | | MEDICINE [address] [place] [address] | MD Petrona | | | | | [facility] | [address] [place] [address] | | | | | [place] [address] | [place] [address] | | | | | [phone] | [phone] | | | | | | | [...] | | | | | [place] [address] | | | | | | [phone] | | | | | | | | +--------+ + + + + | 12/20/ | Office | Audiology | Elisabet Munson MS | | 2019 | Visit | | [facility] [address] | | | | | | [address] [place] | | | | | | [place] [address] | | | | | | [phone] | | | | | | | | +--------+ + + + + | 12/20/ | Office | Otolaryngology | Ulysses Genao MD | | | 2020 | Visit | | [address] | | | | | | [address] [place], | | | | | | [place] [address] | | | | | | [phone] | | | | | | | | +--------+ + + + + documented as of this encounter Visit Diagnoses Not on filedocumented in this encounter"
--- OUTSIDE RECORDS SUMMARY | ~2019-10-16 | XMS | Encounter Summary ---
Demographics + + + | Address | [address] | | | [place] [address] | + + + | Home Phone [...] Team Providers + +------+ + | Care Country Printer Name | Role | Phone | [...] [facility] | [place], [place] | | | | | [address] | [address] | | | | | [address] | [phone] | | | | | Physician's | | | | | | Pavilion, 1st floor | | | | | | [place], [place] | | | | | | [address] | | | | | | [phone] | | | +--------+ + + + [...]
--- OUTSIDE RECORDS SUMMARY | ~2019-10-16 | XMS | Encounter Summary ---
Demographics + + + | Address | [address] | | | [place] [address] | + + + | Home Phone [...] Providers + +------+ + | Care Plant Anatomist Name | Role | Phone | + [...] as of this encounter Progress Notes Interface, Bridge Club Manager In - 12/25/2005 2:07 AM PDT [id number] GEOVANNI Barnes [id number] Clinic Date: 12/05/2005 Clinic: General Surgery Clinic PHONE CONSULTATION Subjective: Belinda Meehan has been under our care with a history of gastric bypass and recurrent abdominal pain, nondiagnostic on multiple tests. She was requesting a prescription for oxycodone which will be sent to her home at [address] [place] [address]. Oxycodone 5 mg, 5 to 10 p.o. [...] Padgett in clinic. Melisa Thorne / SHARIF [id number] / [id number] / [id number] / [id number] Electronically signed by Kenisha Melton 12-24-2005 01:41:04 PM documented i n this encounter Plan of Treatment Not on filedocumented as of this encounter Visit Diagnoses Not on filedocumented in this encounter"
--- OUTSIDE RECORDS SUMMARY | ~2019-10-16 | XMS | Encounter Summary ---
Demographics + + + | Address | [address] | | | [place] [address] | + + + | Home Phone [...] Team Providers + +------+ + | Care Sheep Farm Worker Name | Role | Phone [...] + + | 07/27/ | Telephone | [facility] | Alanis, | Other | | 2020 | | MEDICINE [address] [place] [address] | MD Petrona | | | | | [facility] | [address] [place] [address] | | | | | [place] [address] | [place] [address] | | | | | [phone] | [phone] | | | | | | | [...] | | | | | [place] [address] | | | | | | [phone] | | | | | | | | +--------+ + + + + | 12/20/ | Office | Audiology | Elisabet Munson MS | | 2019 | Visit | | [facility] [address] | | | | | | [address] [place] | | | | | | [place] [address] | | | | | | [phone] | | | | | | | | +--------+ + + + + | 12/20/ | Office | Otolaryngology | Ulysses Genao MD | | | 2020 | Visit | | [address] [facility] | | | | | | [address] [place], | | | | | | [place] [address] | | | | | | [phone] | | | | | | | | +--------+ + + + + documented as of this encounter Visit Diagnoses Not on filedocumented in this encounter"
--- OUTSIDE RECORDS SUMMARY | ~2019-10-16 | XMS | Encounter Summary ---
Demographics + + + | Address | [address] | | | [place] [address] | + + + | Home Phone [...] Team Providers + +------+ + | Care Undercoat Sprayer Name | Role | Phone | [...]
--- OUTSIDE RECORDS SUMMARY | ~2019-10-16 | XMS | Encounter Summary ---
Demographics + + + | Address | [address] | | | [place] [address] | + + + | Home Phone [...] + +------+ + | Care Video Game Maker Name | Role | Phone | [...] Refill Request | | 2007 | | [place] [address] | [address] | (Sucralfate) | | | | Bethanie Mailcode: CH4S | [facility] | | | | | [facility] | [place], [place] | | | | | and Healing, | [address] | | | | | [facility] | [phone] | | | | | Floor [place], [place] | | | | | | [address] | | | | | | [phone] | | | +--------+--------+ + + + [...]
--- OUTSIDE RECORDS SUMMARY | ~2019-10-16 | XMS | Encounter Summary ---
Demographics + + + | Address | [address] | | | [place] [address] | + + + | Home Phone [...] Providers + +------+ + | Care Pharmacy Informatics Specialist Name | Role | Phone [...] as of this encounter Progress Notes Interface, Pension Manager In - 01/12/2005 8:09 AM PDT [id number] GEOVANNI [place] Clinic Date: 02/27/2004 Clinic: [facility]IC Subjective: The patient underwent gastric bypass surgery in November 2003 under the care of Dr. Chris Padgett here at [facility]. She has been doing well after the [...] been scheduled through the Sleep Clinic in [place]. Medications 1. Ranitidine 150 mg p.o. b.i.d. [...] months. Issac Meeks M.D. MONIQUE / SHARIF [id number] / [id number] / [id number] / cc: Joanna Arshad M.D. [address] [facility] [place] [address] documented i n this encounter Plan of Treatment Not on filedocumented as of this encounter Visit Diagnoses Not on filedocumented in this encounter"
--- OUTSIDE RECORDS SUMMARY | ~2019-10-16 | XMS | Encounter Summary ---
Demographics + + + | Address | [address] | | | [place] [address] | + + + | Home Phone [...] Rd | | | | | | [place], [place] | | | | | | [address] | | | +--------+ + + + [...]
--- OUTSIDE RECORDS SUMMARY | ~2019-10-16 | XMS | Encounter Summary ---
Demographics + + + | Address | [address] | | | [place] [address] | + + + | Home Phone [...] Providers + +------+ + | Care Personal Lines Account Manager Name | Role | Phone [...] Mychal Kovacs | | | | | [facility] | [place], [place] | | | | | [address] | [address] | | | | | [address] | [phone] | | | | | Physician[facility] Pavilion | | | | | | Physician's | | | | | | Pavilion [place], | | | | | | [place] [address] | | | | | | [phone] | | | +--------+ + + + [...]
--- OUTSIDE RECORDS SUMMARY | ~2019-10-16 | XMS | Encounter Summary ---
[...] Providers + +------+ + | Care Bag Grader Name | Role | Phone | [...] + + | 09/14/ | Clinical | [facility] | Alanis, | B12 deficiency | | 2019 | Support | MEDICINE [address] [place] [address] | MD Petrona | | | | | [facility] | [address] [place] [address] | | | | | [place] [address] | [place] [address] | | | | | [phone] | [phone] | | | | | | | [...] of this encounter Progress Notes Teresa Mitchell, Superintendent Horticulture - 09/15/2019 10:15 AM PDTFormatting of this note calderon ht be different from the original. Administrations This Visit cyanocobalamin (VITAMIN B-12) injection 1,000 mcg Admin Date 09/15/2019 Action Given Dose 1000 mcg Route Intramuscular Administered By Teresa Mitchell, Superintendent Horticulture do cumented in this encounter Plan of [...] | | | | | [place] [address] | | | | | | [phone] | | | | | | | | +--------+ + + + + | 12/20/ | Office | Audiology | Elisabet Munson MS | | | 2019 | Visit | | [facility] [address] | | | | | [address] [place] | | | | | | [place], [place] [address] | | | | | | [phone] | | | | | | | | +--------+ + + + + | 12/20/ | Office | Otolaryngology | Ulysses Genao MD | | | 2019 | Visit | | [address] | | | | | | [address] [place], | | | | | | [place] [address] | | | | | | [phone] | | | | | | | [...] | | | First dose on [facility] 10/15/17 at 1215 | | | | [...]
--- OUTSIDE RECORDS SUMMARY | ~2019-10-16 | XMS | Encounter Summary ---
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 Provider: DELFINA MOLINA ANP Nathalia Garrett - 007 4:49 PM PDT Physical Therapy Medicare Progress Note Date: 09/09/2006 Belinda J Shefali [id number]. 1960 Start of Care: 06/23/2006 Referring Provider: [...] with walking and sitting; driving back to [email or web address] 2 weeks ago, stopped at rest place and got out of care, falling onto B knees, getting better. Objective: Apparently patient's trip home 2 weeks ago was most likely related to her positi oning, ie B knees were hyperflexed for a prolonged time. She has not fallen since then, use s her lofstrand crutches consistently. Functionally, patient is walking 25 minutes at [employer] at least daily and tolerating it [...]
--- OUTSIDE RECORDS SUMMARY | ~2019-10-16 | XMS | Encounter Summary ---
[...] Providers + +------+ + | Care Telephone Lineworker Name | Role | Phone | + [...] + + | 05/11/ | Telephone | [facility] | Alanis, | Results | | 2017 | | MEDICINE [address] [place] [address] | MD Petrona | | | | | [facility] | [address] [place] [address] | | | | | [place] [address] | [place] [address] | | | | | [phone] | [phone] | | | | | | | [...] | | | | | [place] [address] | | | | | | [phone] | | | | | | | | +--------+ + + + + | 12/20/ | Office | Audiology | Elisabet Munson MS | | 2019 | Visit | | [facility] [address] | | | | | [address] [place] | | | | | | [place] [address] | | | | | | [phone] | | | | | | | | +--------+ + + + + | 12/20/ | Office | Otolaryngology | Ulysses Genao MD | | | 2019 | Visit | | [address] | | | | | | [address] [place], | | | | | | [place] [address] | | | | | | [phone] | | | | | | | | +--------+ + + + + documented as of this encounter Visit Diagnoses + + | Diagnosis | + + | Acute bilateral low back pain with bilateral sciatica - Primary | + + documented in this encounter"
--- OUTSIDE RECORDS SUMMARY | ~2019-10-16 | XMS | Encounter Summary ---
Demographics + + + | Address | [address] | | | [place] [address] | + + + | Home Phone [...] Providers + +------+ + | Care Glass Block Bender Name | Role | Phone | [...] Rd | | | | | | [place], [place] | | | | | | [address] | | | +--------+ + + + [...]
--- OUTSIDE RECORDS SUMMARY | ~2019-10-16 | XMS | Encounter Summary ---
Demographics + + + | Address | [address] | | | [place] [address] | + + + | Home Phone [...] of this encounter Progress Notes Interface, Sales Consultant In - 10/03/2006 2:33 AM PDT [id number] GEOVANNI SKELTON J [id number] Clinic Date: 09/14/2006 Clinic: Rheumatology Belinda Meehan [...] every 3 days changed; Trileptal 225 mg; Hustler 10/325; and Actonel. Objective: Weight is 214, [...] to this. Caitlin Rivera M.S., F.N.P. / [id number] / [id number] / [id number] / [id number] cc: Pedrito Gutierrez M.D. [address] [facility] [address] [place], [place] [address] [facility] Electronically signed by Caitlin Rivera 10-02-2006 09:24:29 AM documented in this encounter Plan of Treatment Not on filedocumented as of this encounter Visit Diagnoses Not on filedocumented in this encounter"
--- OUTSIDE RECORDS SUMMARY | ~2019-10-16 | XMS | Encounter Summary ---
Demographics + + + | Address | [address] | | | [place] [address] | + + + | Home Phone [...] + +------+ + | Care Drill Operator Pneumatic Name | Role | Phone | + [...] + | 11/22/ | Refill | [facility] | Alanis, | Medication Refill | | 2018 | | MEDICINE [address] [place] [address] | MD Petrona | | | | | [facility] | [address] [place] [address] | | | | | [place] [address] | [place] [address] | | | | | [phone] | [phone] | | | | | | | [...] | | | | | [place] [address] | | | | | | [phone] | | | | | | | | +--------+ + + + + | 12/20/ | Office | Audiology | DarioElisabet ramires MS | | | 2019 | Visit | | [facility] [address] | | | | [address] | | | | | | [place], [place] [address] | | | | | | [phone] | | | | | | | | +--------+ + + + + | 12/20/ | Office | Otolaryngology | Ulysses Genao MD | | | 2019 | Visit | | [address] | | | | | | [address] [place], | | | | | | [place] [address] | | | | | | [phone] | | | | | | | | +--------+ + + + + documented as of this encounter Visit Diagnoses Not on filedocumented in this encounter"
--- OUTSIDE RECORDS SUMMARY | ~2019-10-16 | XMS | Encounter Summary ---
Demographics + + + | Address | [address] | | | [place] [address] | + + + | Home Phone [...] Providers + +------+ + | Care Pharmacy Aide Name | Role | Phone | [...] Mychal Kovacs | | | | | [facility] | [place], [place] | | | | | [address] | [address] | | | | | [address] | [phone] | | | | | Physician's Pavilion | | | | | | Physician's | | | | | | Pavilion [place], | | | | | | [place] [address] | | | | | | [phone] | | | +--------+ + + + [...]
--- OUTSIDE RECORDS SUMMARY | ~2019-10-16 | XMS | Encounter Summary ---
Demographics + + + | Address | [address] | | | [place] [address] | + + + | Home Phone [...] +------+ + | Care Airborne Mission Systems Superintendent Name | Role | Phone | [...] | | | [facility] | [place], [place] | | | | | [address] | [address] | | | | | [address] | [phone] | | | | | Physician's | | | | | | Pavilion, 1st floor | | | | | | [place], [place] | | | | | | [address] | | | | | | [phone] | | | +--------+--------+ + + + [...]
--- OUTSIDE RECORDS SUMMARY | ~2019-10-16 | XMS | Encounter Summary ---
Demographics + + + | Address | [address] | | | [place] [address] | + + + | Home Phone [...] Providers + +------+ + | Care Legal Support Analyst Name | Role | Phone [...] | RE/Emmy | [place], [place] | [place], [place] | | | | | Procedures | [address] | [address] Phone: | | | | | [place] | Phone: | [phone] | | | | | SPONTANEOUS | [phone] | Fax: | | | | | NYSTAGMUS | Fax: | [phone] | | | | | TEST [place] | [phone] | | | | | | POSITIONAL | | | | | | | NYSTAGMUS | | | | | | | TEST MI | | | | | | | CALORIC | | | | | | | VESTIBULAR | | | | | | | TEST MI | | | | | | | OPTOKINETIC | | | | | | | NYSTAGMUS | | | | | | | TEST MI | | | | | | | OSCILLATING | | | | | | | TRACKING | | | | | | | TEST MI | | | | | | | SUPPLEMENTAL | | | | | | | ELECTRICAL | | | | | | | TEST MI | | | | | | | [...] + | 12/07/ | Office | [facility] | Elisabet Munson, MS | Vertigo of central | | 2015 | Visit | AUDIOLOGY AND | [facility] [address] | origin, unspecified | | | | [facility] | [address] [facility] | laterality (Primary | | | | [address] | [place] [address] | Dx) | | | | [facility] | [phone] | | | | | [place] [address] | | | | | | [phone] | | | +--------+---------+ + + + [...] M.D. VNG testing revealed abnormal oculomotor subtests. [place] pike revealed nystagmus when [...] | | | | | [place] [address] | | | | | | [phone] | | | | | | | | +--------+ + + + + | 12/20/ | Office | Audiology | Elisabet Munson MS | | | 2019 | Visit | | [facility] [address] | | | | | | [address] [place] | | | | | | [place] [address] | | | | | | [phone] | | | | | | | | +--------+ + + + + | 12/20/ | Office | Otolaryngology | Ulysses Genao MD | | 2019 | Visit | | [address] | | | | | | [address] [place], | | | | | | [place] [address] | | | | | | [phone] | | | | | | | [...]
--- OUTSIDE RECORDS SUMMARY | ~2019-10-16 | XMS | Encounter Summary ---
Demographics + + + | Address | [address] | | | [place] [address] | + + + | Home Phone [...] Providers + +------+ + | Care Oracle Solutions Architect Name | Role | Phone [...] + + | 02/02/ | Telephone | [facility] | Alanis, | Pain | | 2019 | | MEDICINE [address] [place] [address] | MD Petrona | | | | | [place] | [address] [place] [address] | | | | | [place] [address] | [place] [address] | | | | | [phone] | [phone] | | | | | | | [...] | | | | | [place] [address] | | | | | | [phone] | | | | | | | | +--------+ + + + + | 12/20/ | Office | Audiology | Elisabet Munson MS | | 2019 | Visit | | [facility] [address] | | | | | | [address] [place] | | | | | | [place] [address] | | | | | | [phone] | | | | | | | | +--------+ + + + + | 12/20/ | Office | Otolaryngology | Ulysses Genao MD | | | 2020 | Visit | | [address] [facility] | | | | | | [address] [place], | | | | | | [place] [address] | | | | | | [phone] | | | | | | | | +--------+ + + + + documented as of this encounter Visit Diagnoses Not on filedocumented in this encounter"
--- OUTSIDE RECORDS SUMMARY | ~2019-10-16 | XMS | Encounter Summary ---
Demographics + + + | Address | [address] | | | [place] [address] | + + + | Home Phone [...] Team Providers + +------+ + | Care Wastewater Treatment Plant Operator Name | Role | Phone [...] 05/29/ | Office | [facility] | Lukasz Charles, | Major Depressive | | 2005 | Visit | [address] | PhD [address] | Disorder, Recurrent | | | | Mailcode: [id number] | [place], [place] | Episode, Moderate | | | | [place] [facility] | [address] | ([facility]); Chronic | | | | and Healing, | [phone] | Abdominal Pain; | | | | Building | | Cervical Pain; | | | | Floor [place], [place] | | Headache; Adjustment | | | | [address] | | Disorder with | | | | [phone] | | Anxiety; Other Pain | | [...] Notes Lukasz Charles - 05/29/2006 6:15 PM [facility] Initial Psychological Wendy luation IDENTIFYING INFORMATION: Belinda Meehan is a 46 y.o. female Date of : 1960 Consulting Physician: LUKASZ CHARLES PHD Consultation Date: 05/29/2006 Referring Provider: Carlos Arreola Identifying Information: Belinda Meehan is a 46 y.o. female who lives in [facility] her 2 sons. The patient was [...] disability benefits. 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 Marital History: , not currently in a [...] and decreasing depression and anx iety. Diagnosis: Como I: 1. (296.32) Major depressive disorder, recurrent, moderate. 2. (309.24) Adjustment disorder with anxiety. 3. 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 Como II: Deferred Como III: abdominal pain, migraine headache, low back pain. Como IV: low finances Como V: GAF 50 Recommendations: 1. Psychological counseling to increase knowledge and use of cognitive and behavioral pain coping skills is recommended. The treatment should include relaxation training to improve c ontrol over physiologic responses to pain. Treatment should also focus on decreasing sympto ms of depression and increasing participation in social, recreational and leisure activities . Ms. 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 LUKASZ CHARLES PHD [facility] [address] [place] [address] [facility], [address] [place] [address] documented in this [facility] Plan of Treatment + + +--------+ + + | Name | Type | Priori | Associated Diagnoses | Order Schedule | | | | ty | | | + + +--------+ + + | [facility] | Procedures | Routin | Major Depressive | Ordered: 05/29/2006 | | DIAGNOSTIC INTERVIEW | | e | Disorder, Recurrent | | | | | | Episode, Moderate | | | | | | ([facility]) Chronic | | | | | [...]
--- OUTSIDE RECORDS SUMMARY | ~2019-10-16 | XMS | Encounter Summary ---
Demographics + + + | Address | [address] | | | [place] [address] | + + + | Home Phone [...] Providers + +------+ + | Care Yarn Twister Name | Role | Phone | [...] + | 02/10/ | Refill | [facility] | Alanis, | Medication Refill | | 2018 | | MEDICINE [address] [place] [address] | MD Petrona | | | | | [facility] | [address] [place] [address] | | | | | [place] [address] | [place] [address] | | | | | [phone] | [phone] | | | | | | | [...] | | | | | [place] [address] | | | | | | [phone] | | | | | | | | +--------+ + + + + | 12/20/ | Office | Audiology | Elisabet MunsonMS | | | 2019 | Visit | | [facility] [address] | | | | | | [address] [place] | | | | | | [place] [address] | | | | | | [phone] | | | | | | | | +--------+ + + + + | 12/20/ | Office | Otolaryngology | Ulysses Genao MD | | | 2019 | Visit | | [address] | | | | | | [address] [place], | | | | | | [place] [address] | | | | | | [phone] | | | | | | | | +--------+ + + + + documented as of this encounter Visit Diagnoses + + | Diagnosis | + + | Nausea Nausea alone | + + documented in this encounter"
--- OUTSIDE RECORDS SUMMARY | ~2019-10-16 | XMS | Encounter Summary ---
Demographics + + + | Address | [address] | | | [place] [address] [...] Team Providers + +------+ + | Care Bankruptcy Law Specialist Name | Role | Phone [...] | | | | [address] | [address] Phone: | | | | | | [place], | [phone] | | | | | | [place] | Fax: | | | | | | [address] | [phone] | | | | | | Phone: | | | | | | | [phone] | | | | | | | Fax: | | | | | | | [phone] | | +--------+--------+ + + + + Encounter Details +--------+---------+ + + + | Date | Type | Department | Care Team | Description | +--------+---------+ + + + | 11/28/ | Office | [facility] | Carlos Hsieh | NO SHOW (Primary Dx) | | 2014 | Visit | PHYSIATRY [address] | T, [address] | | | | | [address] | [place], [place] | | | | | [place], [place] | [address] | | | | | [address] | | | | | | [phone] | Joe, | | | | | | MARY Montero [address] | | | | | | [address] | | | | | | [place] [address] | | | | | | [phone] | | | | | | | [...] | | | | | [place] [address] | | | | | | [phone] | | | | | | | | +--------+ + + + + | 12/20/ | Office | Audiology | Elisabet MunsonMS | | | 2019 | Visit | | [facility] [address] | | | | | | [address] [place] | | | | | | [place] [address] | | | | | | [phone] | | | | | | | | +--------+ + + + + | 12/20/ | Office | Otolaryngology | Ulysses Genao MD | | | 2019 | Visit | | [address] | | | | | | [address] [place], | | | | | | [place] [address] | | | | | | [phone] | | | | | | | | +--------+ + + + + documented as of this encounter Visit Diagnoses + + | Diagnosis | + + | No Show - Primary Code used for vists where the patient is not seen | + + documented in this encounter"
--- OUTSIDE RECORDS SUMMARY | ~2019-10-16 | XMS | Encounter Summary ---
Demographics + + + | Address | [address] | | | [place] [address] | + + + | Home Phone [...] Providers + +------+ + | Care Asphalt Smoother Name | Role | Phone | + +------+ + | Petrona Thapa | PCP | | | MD | | | + +------+ + Encounter Details +--------+ + + + + | Date | Type | Department | Care Team | Description | +--------+ + + + + | 09/15/ | Hospital | [facility] | Alanis, | Pain in right lower | | 2019 | Encounter | [facility] | MD Petrona | leg | | | | [address] [place] | [address] [facility] | | | | | [place] | [place] [address] | | | | | [address] | [phone] | | | | | [phone] | | | +--------+ + + + [...] | | | | | [place] [address] | | | | | | [phone] | | | | | | | | +--------+ + + + + | 12/20/ | Office | Audiology | Elisabet Munson MS | | | 2019 | Visit | | [facility] [address] | | | | | | [address] [place] | | | | | | [place] [address] | | | | | | [phone] | | | | | | | | +--------+ + + + + | 12/20/ | Office | Otolaryngology | Ulysses Genao MD | | | 2019 | Visit | | [address] [place] | | | | | | [address] [place], | | | | | | [place] [address] | | | | | | [phone] | | | | | | | [...]
--- OUTSIDE RECORDS SUMMARY | ~2019-10-16 | XMS | Encounter Summary ---
Demographics + + + | Address | [address] | | | [place] [address] | + + + | Home Phone [...] Team Providers + +------+ + | Care Experimental Mechanic Name | Role | Phone [...] + | 02/03/ | Refill | [facility] | Alanis, | Medication Refill | | 2017 | | MEDICINE [address] [place] [address] | MD Petrona | | | | | [facility] | [address] [place] [address] | | | | | [place] [address] | [place] [address] | | | | | [phone] | [phone] | | | | | | | [...] | | | | | [place] [address] | | | | | | [phone] | | | | | | | | +--------+ + + + + | 12/20/ | Office | Audiology | DarioElisabet ramires MS | | | 2019 | Visit | | [facility] [address] | | | | | | [address] [place] | | | | | | [place], [place] [address] | | | | | | [phone] | | | | | | | | +--------+ + + + + | 12/20/ | Office | Otolaryngology | Ulysses Genao MD | | | 2019 | Visit | | [address] | | | | | | [address] [place], | | | | | | [place] [address] | | | | | | [phone] | | | | | | | | +--------+ + + + + documented as of this encounter Visit Diagnoses Not on filedocumented in this encounter"
--- OUTSIDE RECORDS SUMMARY | ~2019-10-16 | XMS | Encounter Summary ---
Demographics + + + | Address | [address] | | | [place] [address] | + + + | Home Phone [...] Providers + +------+ + | Care Automobile Engine Assembler Name | Role | Phone | [...] + + | 06/29/ | Telephone | [facility] | Alanis, | Illness | | 2018 | | MEDICINE [address] [place] [address] | MD Petrona | | | | | [facility] | [address] [place] [address] | | | | | [place] [address] | [place] [address] | | | | | [phone] | [phone] | | | | | | | [...] | | | | | [place] [address] | | | | | | [phone] | | | | | | | | +--------+ + + + + | 12/20/ | Office | Audiology | Elisabet Munson MS | | 2019 | Visit | | [facility] [address] | | | | | | [address] [place] | | | | | | [place] [address] | | | | | | [phone] | | | | | | | | +--------+ + + + + | 12/20/ | Office | Otolaryngology | Ulysses Genao MD | | | 2020 | Visit | | [address] | | | | | | [address] [place], | | | | | | [place] [address] | | | | | | [phone] | | | | | | | | +--------+ + + + + documented as of this encounter Visit Diagnoses Not on filedocumented in this encounter"
--- OUTSIDE RECORDS SUMMARY | ~2019-10-16 | XMS | Encounter Summary ---
[...] Providers + +------+ + | Care Medical Management Specialist Name | Role | Phone [...] | | | | Clinical Nutrition | [place], [place] | | | | | [address] | [address] | | | | | Loop Mailcode: [id number] | [phone] | | | | | Outpatient Clinic | | | | | | [facility] | | | | | | [place] [address] | | | | | | [phone] | | | +--------+ + + + [...] [facility] DEPARTMENT OF | [address] | [place] [address] | | | PATHOLOGY | [address] | | | + + + + + | [facility] DEPARTMENT OF | [address] | [place] [address] | | | PATHOLOGY | [address] [...] + + | [facility] | [address] | [place] [address] | | | PATHOLOGY | [address] | | | + + + + + | [facility] | [address] | [place] [address] | | | PATHOLOGY | [address] | | | + + + + + documented in this encounter Visit Diagnoses Not on filedocumented in this encounter"
--- OUTSIDE RECORDS SUMMARY | ~2019-10-16 | XMS | Encounter Summary ---
Demographics + + + | Address | [address] | | | [place] [address] | + + + | Home Phone [...] Team Providers + +------+ + | Care Lyft Driver Name | Role | Phone | [...] PHYSIATRY [address] | MD [address] | | | | | [address] | [place] | | | | | [place], [place] | [address] | | | | | [address] | | | | | | [phone] | | | +--------+ + + + [...] | | | | | [place] [address] | | | | | | [phone] | | | | | | | | +--------+ + + + + | 12/20/ | Office | Audiology | Elisabet Munson MS | | | 2019 | Visit | | [facility] [address] | | | | | | [place] [address] [place] | | | | | | [place] [address] | | | | | | [phone] | | | | | | | | +--------+ + + + + | 12/20/ | Office | Otolaryngology | Ulysses Genao MD | | | 2020 | Visit | | [address] | | | | | | [address] [place], | | | | | | [place] [address] | | | | | | [phone] | | | | | | | | +--------+ + + + + documented as of this encounter Visit Diagnoses Not on filedocumented in this encounter"
--- OUTSIDE RECORDS SUMMARY | ~2019-10-16 | XMS | Encounter Summary ---
Demographics + + + | Address | [address] | | | [place] [address] | + + + | Home Phone [...] Providers + +------+ + | Care Soap Drier Tender Name | Role | Phone [...] Pavilion | | | | | | [place], [place] | | | | | | [address] | | | | | | [phone] | | | +--------+ + + + [...]
--- OUTSIDE RECORDS SUMMARY | ~2019-10-16 | XMS | Encounter Summary ---
Demographics + + + | Address | [address] | | | [place] [address] | + + + | Home Phone [...] Providers + +------+ + | Care Consulting Project Director Name | Role | Phone | [...] [address] | | | | | [facility] | [place], [place] | | | | | [address] | [address] | | | | | [address] | [phone] | | | | | [facility] | | | | | | Physician's | | | | | | Pavilion [place], | | | | | | [place] [address] | | | | | | [phone] | | | +--------+--------+ + + + [...]
--- OUTSIDE RECORDS SUMMARY | ~2019-10-16 | XMS | Encounter Summary ---
Demographics + + + | Address | [address] | | | [place] [address] | + + + | Home Phone [...] Providers + +------+ + | Care Machine Tender Name | Role | Phone [...] + + | 08/18/ | Office | [facility] | Alanis, | Preop examination | | 2018 | Visit | MEDICINE [address] | MD Petrona | (Primary Dx); | | | | [facility] | [address] [facility] | Trigger finger of | | | | [place] [address] | [place] [address] | all digits of left | | | | [phone] | [phone] | hand | | | | | [...] r with Dr. Dr Jefe Cruz in [place], [place]. . She had surgery before and [...] Had a basal metabolic panel yesterday at [facility] in [place] which came back okay. REVIEW OF SYSTEMS [...] COPD (chronic obstructive pulmonary disease) ([facility]) Depression Diarrhea Dumping syndrome Fall at home Fatigue fracture of vertebra Fibromyalgia GERD (gastroesophageal reflux disease) Glaucoma Hyperparathyroidism ([facility]) Hypothyroidism IBS (irritable bowel syndrome) Idiopathic scoliosis Leg edema Low back pain Lumbar postlaminectomy syndrome Lumbar radiculopathy primarily right 01/04/2015 Meniere syndrome Migraine with aura Migraines Muscle cramping Muscle spasm Myalgia Nonalcoholic hepatosteatosis Obesity Opioid dependence ([facility]) Orthostatic hypotension OLIVER (obstructive sleep apnea) Osteoarthritis, generalized Osteopenia Osteoporosis Peripheral neuropathy ([facility]) Rheumatoid arthritis ([facility]) Right arm pain 01/04/2015 RLS (restless legs syndrome) S/P lumbar fusion 01/04/2015 Scoliosis Sleep apnea Spondylosis with myelopathy, lumbar region Stroke ([facility]) Syncope Tremor Type II or unspecified [...] (See Comments) Confused and questionable for seizures Jonufbtqgg-Tuvh-Whiqoviq Cephalexin Hives Duloxetine Migraines and nausea Ketorolac Hives Morphine Swelling Ropinirole Hcl Hives Tramadol Hcl Nausea Only Uhmjgnttnr-Hnkz-Szerwltb Hives and Rash Ciprofloxacin Hives and Rash [...] Note: Parts of this documentwere created using [employer] speech recognition software. As a r esult, [...] Petrona | | | | | | [facility] [address] | | | | | | [place] [address] | | | | | | [phone] | | | | | | | | +--------+ + + + + | 12/20/ | Office | Audiology | Elisabet Munson MS | | | 2019 | Visit | | [facility] | | | | | | [address] | | | | | | [place] [address] | | | | | | [phone] | | | | | | | | +--------+ + + + + | 12/20/ | Office | Otolaryngology | Ulysses Genao MD | | | 2020 | Visit | | [address] [facility] | | | | | | [address] [place], | | | | | | [place] [address] | | | | | | [phone] | | | | | | | [...]
--- OUTSIDE RECORDS SUMMARY | ~2019-10-16 | XMS | Encounter Summary ---
Demographics + + + | Address | [address] | | | [place] [address] | + + + | Home Phone [...] Providers + +------+ + | Care Pharmacy Laboratory Technician Name | Role | Phone [...] + + | 08/18/ | Office | [facility] | Alanis, | Preop examination | | 2018 | Visit | MEDICINE [address] | MD Petrona | (Primary Dx); | | | | [facility] | [address] [facility] | Trigger finger of | | | | [place] [address] | [place] [address] | all digits of left | | | | [phone] | [phone] | hand | | | | | [...] r with Dr. Dr Jefe Cruz in [place], [place]. . She had surgery before and [...] Had a basal metabolic panel yesterday at [facility] in [place] which came back okay. REVIEW OF SYSTEMS [...] insufficiency Coccydynia COPD (chronic obstructive pulmonary disease) ([facility]) Depression Diarrhea Dumping syndrome Fall at home Fatigue fracture of vertebra Fibromyalgia GERD (gastroesophageal reflux disease) Glaucoma Hyperparathyroidism ([facility]) Hypothyroidism IBS (irritable bowel syndrome) Idiopathic scoliosis Leg edema Low back pain Lumbar postlaminectomy syndrome Lumbar radiculopathy primarily right 01/04/2015 Meniere syndrome Migraine with aura Migraines Muscle cramping Muscle spasm Myalgia Nonalcoholic hepatosteatosis Obesity Opioid dependence ([facility]) Orthostatic hypotension OLIVER (obstructive sleep apnea) Osteoarthritis, generalized Osteopenia Osteoporosis Peripheral neuropathy ([facility]) Rheumatoid arthritis ([facility]) Right [...] (See Comments) Confused and questionable for seizures Lqioruksyk-Ppzz-Oktrkkke Cephalexin Hives Duloxetine Migraines and nausea Ketorolac Hives Morphine Swelling Ropinirole Hcl Hives Tramadol Hcl Nausea Only Wbfpifgusz-Ayfu-Hzsnbysi Hives and Rash Ciprofloxacin Hives and Rash [...] Note: Parts of this documentwere created using [employer] speech recognition software. As a r esult, [...] | | | | [facility] [address] [place] | | | | | | [place] [address] | | | | | | [phone] | | | | | | | | +--------+ + + + + | 12/20/ | Office | Audiology | Elisabet Munson MS | | | 2019 | Visit | | [facility] | | | | | | [address] | | | | | | [place] [address] | | | | | | [phone] | | | | | | | | +--------+ + + + + | 12/20/ | Office | Otolaryngology | Ulysses Genao MD | | | 2020 | Visit | | [address] [facility] | | | | | | [address] [place], | | | | | | [place] [address] | | | | | | [phone] | | | | | | | [...]
--- OUTSIDE RECORDS SUMMARY | ~2019-10-16 | XMS | Encounter Summary ---
Demographics + + + | Address | [address] | | | [place] [address] | + + + | Home Phone [...] Team Providers + +------+ + | Care Bracer Name | Role | Phone | + [...] | | 2019 | Visit | MEDICINE [address] [place] [address] | MD Petrona | aura and without | | | | Street [place] | [address] [place] [address] | status migrainosus, | | | | [place] [address] | [place] [address] | not intractable | | | | [phone] | [phone] | (Primary Dx); | | | | [...] her lower extremities. Had an MRI of [facility] recently showing chronic d egenerative changes and disc bulges in her lower back with no significant stenosis or other acute indications for neurosurgery. Findings were similar to a previous MRI from a few year s ago. She did have back surgery in [facility] on a number of years ago. [...] Coccydynia COPD (chronic obstructive pulmonary disease) ([facility]) Depression Diarrhea Dumping syndrome Fall at home Fatigue fracture of vertebra Fibromyalgia Full dentures GERD (gastroesophageal reflux disease) Glaucoma Hyperparathyroidism ([facility]) Hypothyroidism IBS (irritable bowel syndrome) Idiopathic scoliosis Leg edema Low back pain Lumbar postlaminectomy syndrome Lumbar radiculopathy primarily right 01/04/2015 Meniere syndrome Migraine with aura Migraines Muscle cramping Muscle spasm Myalgia Nonalcoholic hepatosteatosis Obesity Opioid dependence ([facility]) Orthostatic hypotension OLIVER (obstructive sleep apnea) Osteoarthritis, generalized Osteopenia Osteoporosis Peripheral neuropathy Rheumatoid arthritis ([facility]) Right arm pain 01/04/2015 RLS (restless [...] Procedure: COLONOSCOPY; Surgeon: Luther Brito MD; Location: [facility] MEDICAL PROCEDURE UNIT DILATION AND CURETTAGE OF UTERUS ELBOW SURGERY FINGER TRIGGER RELEASE 2002 FINGER TRIGGER RELEASE 2009 GASTRIC BYPASS SURGERY 2004 HYSTERECTOMY 05/14/1980 JOINT REPLACEMENT Bilateral 2006 2007 KNEE ARTHROSCOPY 2005 LAPAROSCOPY 01/27/2015 LAPAROTOMY 2008 ROTATOR CUFF REPAIR 2005 SPINE SURGERY TONSILLECTOMY 1964 UPPER GASTROINTESTINAL ENDOSCOPY N/A 12/18/2017 Procedure: EGD; Surgeon: Luther Brito MD; Location: [facility] MEDICAL PROCEDURE UNIT CURRENT MEDICATIONS [...] (See Comments) Confused and questionable for seizures Xquvkvrrjr-Ctkm-Uljbhayi Hives and Rash Cephalexin Hives Ciprofloxacin Hives [...] - We'll refer for physical therapy in [place], including aquatic therapy. FOLLOW-UP Return in about 3 months (around 09/15/2018). Note: Parts of this documentwere created using Dragon speech recognition software. As a r esult, there may be unintended word spelling errors. Every attempt was made to correct the dictation. Shanta Trevino Training Technician - 06/17/2018 10:45 AM PSTFormatting of this note might be diff erent from the original. Administrations This Visit cyanocobalamin (VITAMIN B-12) injection 1,000 mcg Admin Date 06/17/2018 Action Given Dose 1000 mcg Route Intramuscular Administered By Shanta Whaley Training Technician Pt tolerated B-12 injection well. documented in [...] | | | | | [place] [address] | | | | | | [phone] | | | | | | | | +--------+ + + + + | 12/20/ | Office | Audiology | Elisabet Munson MS | | | 2019 | Visit | | [facility] [address] | | | | | [address] [place] | | | | | | [place] [address] | | | | | | [phone] | | | | | | | | +--------+ + + + + | 12/20/ | Office | Otolaryngology | Ulysses Genao MD | | | 2019 | Visit | | [address] | | | | | | [address] [place], | | | | | | [place] [address] | | | | | | [phone] | | | | | | | [...]
--- OUTSIDE RECORDS SUMMARY | ~2019-10-16 | XMS | Encounter Summary ---
Demographics + + + | Address | [address] | | | [place] [address] | + + + | Home Phone [...] Providers + +------+ + | Care Therapist Rrt Name | Role | Phone | + [...] of this encounter Progress Notes Interface, Instructor Weaving In - 01/12/2005 6:20 AM PDT [id number] [facility] Date: 11/18/2004 Clinic: General [...] The patient to send pictures to our senior financial consultant and chronometer repairer for evaluation for medicare for panniculectomy. Described [...] authorization for panniculectomy. Melisa Thorne / SHARIF [id number] / [id number] / [id number] / [id number] cc: Chris Padgett M.D. Joanna Valdez MD [facility] [address] [place] [address] Electronically signed by Kenisha Melton 11-26-2004 05:00:55 PM documented i n this encounter Plan of Treatment Not on filedocumented as of this encounter Visit Diagnoses Not on filedocumented in this encounter"
--- OUTSIDE RECORDS SUMMARY | ~2019-10-16 | XMS | Encounter Summary ---
Demographics + + + | Address | [address] | | | [place] [address] | + + + | Home Phone [...] Providers + +------+ + | Care Scrub Nurse Name | Role | Phone | [...] | Procedures | [address] | [place] | | | | | CONSULT TO | [address] | [address] | | | | | GI PROCEDURE | Rd | floor | | | | | UNIT: EGD | [place], [place] | [place], [place] | | | | | | [address] | [address] | | | | | | Phone: | Phone: | | | | | | [phone] | [phone] | | | | | | | Fax: | | | | | | | [phone] | +--------+--------+ + + + + Consultation [...] | | | | | UNIT: | [place] | | | | | COLONOSCOPY | [address] | [address] | | | | | | Phone: | Phone: | | | | | | [phone] | [phone] | | | | | | | Fax: | | | | | | | [phone] | +--------+--------+ + + + + Reason [...] + + | 03/10/ | Office | [facility] Division of | Carlos Arreola, | Chronic Abdominal | | 2005 | Visit | Gastroenterology/Hep | MD [address] | Pain; Iron | | | | atology [address] | Deficiency | | | | [address] | [place] [address] | | | | | Mailcode: [id number] | [phone] | | | | | [facility] | | | | | | [address] | | | | | | [place], [place] | | | | | | [address] | | | | | | [phone] | | | +--------+---------+ + + + [...] so by calling and asking for my speech and language assistant Cierra Alexis. I always do my [...] other questions or issues. Carlos Arreola MD. [facility] Division Of Gastroenterology/Hepatology [address] [place] [address] [place] [address] documented in this encounter Progress Anup Plascencia [...] prior heavy use 20 -25yrs ago ('tended spacer type bar and segment then'). Lost 200lbs psot bypass surgery, has [...] [facility] | [address] | [place] [address] | | | PATHOLOGY | [address] | | | + + + + + | [facility] | [address] | [place] [address] | | | PATHOLOGY | [address] [...] [facility] | [address] [facility] | [place] [address] | | | PATHOLOGY | [address] | | | + + + + + | [facility] | [address] [facility] | [place] [address] | | | PATHOLOGY | [address] [...] | [facility] DEPARTMENT OF | [address] | [place] [address] | | | PATHOLOGY | [address] | | | + + + + + | [facility] | [facility] [address] | [place] [address] | | | PATHOLOGY | [address] [...] DEPARTMENT OF | [address] | [place] [address] | | | PATHOLOGY | [address] | | | + + + + + | [facility] | [address] | [place] [address] | | | PATHOLOGY | [address] [...] pg/mL | | | | | [facility] | | | | + + + + + + + + | Specimen | + + | | + + + + + + + | Performing | Address | City/State/Zipcode | Phone Number | | Organization | | | | + + + + + | [facility] | [address] | [place] [address] | | | LABORATORY | | | [...] | | | | performed at [place] | | | | | | [facility] [...] | + + + + + | [facility] | [address] | [place] [address] | | | LABORATORY | | | | + + + + + documented in this encounter Visit Diagnoses + + | Diagnosis | + + | Chronic abdominal pain Abdominal pain, unspecified site | + + | Iron deficiency Other disorders of iron metabolism | + + documented in this encounter"
[~2019-10-16 02:59] MED LIST changes: +LOPERAMIDE2 MG PO; +OMEPRAZOLE20 M2 PO
--- OUTSIDE RECORDS SUMMARY | 2019-10-16 03:02 | XMS ---
PreManage Notification: NAFISA GALARZA Security Professional Bondsman Events No recent Security Events currently on file CRITERIA MET - Group Notification - [facility] - Has Care Guidelines - PDMP CARE PROVIDERS [place], Internal Medicine Current [place] PHONE: [phone] Daniella has no Care Guidelines for this patient. Care History Medical/Surgical 12/14/2018 [facility] HISTORY:\T\nbsp; SPINE SURGERY - [facility] ([phone]) HX: MENIERE\T\#39; S SYNDROME (HAS RX FOR MECLIZINE THROUGH PCP DR CLEMENCIA FENTON); MIGRAINES;OSTEOARTHRITIS;SCOLIOSIS;DUMPING SYNDROME;IBS CHRONIC PAIN. 11/10/2018 [facility] - [facility] CONTACTED PATIENT. PATIENT HAS A PCP APT WITH PCP OFFICE ON 11/15/18 FOR ER FOLLOW UP. E.D. VISIT COUNT (12 MO.) 4 [facility]. TOTAL 4 NOTE: Visits indicate total known visits. ED/UCC VISIT TRACKING (12 MO.) 10/16/2019 03:00 [facility] [place] TYPE: Emergency COMPLAINT: - FOOT PAIN 06/25/2019 21:38 [facility] [place] TYPE: Emergency COMPLAINT: - RIGHT SHOULD/ARM PAIN DIAGNOSES: - Allergy status to sulfonamides status - Other terminal manager (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 - Allergy status to penicillin - Allergy status to other antibiotic agents status - Acute pain due to trauma - Migraine, unspecified, not intractable, without status migrai - Personal history of nicotine dependence - Allergy status to analgesic agent status - Allergy status to narcotic agent status - Pain in right shoulder 12/11/2018 20:06 [facility] [place] TYPE: Emergency COMPLAINT: - DIZZINESS/FALL DIAGNOSES: - Acquired absence of both cervix and uterus - Allergy status to other antibiotic agents status - Low back pain - Dizziness and giddiness - Other terminal manager (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 - Allergy status to narcotic agent status - Fall on same level, unspecified, initial encounter - Allergy status to penicillin - Allergy status to analgesic agent status - Allergy status to sulfonamides status - Allergy status to other drugs, medicaments and biological sub - Acquired absence of other specified parts of digestive tract - Personal history of nicotine dependence 11/09/2018 09:19 [facility] [place] TYPE: Emergency COMPLAINT: - WEAKNESS/DIAHRREA/VOMITING DIAGNOSES: - Other terminal manager (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 - Allergy status to other drugs, medicaments and biological sub - Allergy status to other antibiotic agents [...] nicotine dependence INPATIENT VISIT TRACKING (12 MO.) No inpatient visits to display in this time frame [email or web address]
[2019-10-16] MEDS ORDERED: LEVAQUIN500 MG PO (03:31)
[2019-10-17] MEDS ORDERED: PROMETHAZINE HC25 MG PR (12:30)
[2019-10-17] MEDS ORDERED: PROMETHAZINE HC25 M1 PO (12:30)
== END 2019-10-16 04:07 | disposition home or self-care (01) ==
LOC: ED 02:59
DX: L03.116 Cellulitis of left lower limb (principal); G43.909 Migraine, unspecified, not intractable, without status migrainosus; Z87.891 Personal history of nicotine dependence; Z88.5 Allergy status to narcotic agent; Z88.2 Allergy status to sulfonamides; Z88.1 Allergy status to other antibiotic agents; Z88.0 Allergy status to penicillin; Z79.899 Other long term (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
CPT/HCPCS: 99283

== ENCOUNTER 2019-10-17 10:07 | Emergency (ER) | payer MEDICARE, OTHER ==
[~2019-10-17] VITALS: Ht 167.6 cm; Wt 102.1 kg
--- OUTSIDE RECORDS SUMMARY | ~2019-10-17 | XMS | Encounter Summary ---
Demographics + + + | Address | [address] | | | [place] [address] | + + + | Home Phone | | + + + | Preferred Language | Unknown | + + + | Marital Status | Single | + + + | Samaritan Affiliation | ADV | + + + | Race | White | + + + | Ethnic Group | Not or | + + + Author + + + | Author | [facility] | + + + | Organization | [facility] | + + + | Address | [...] Team Providers + +------+ + | Care Filter Tip Catcher Name | Role | Phone | + +------+ + | Maria Esther Cintron MD | PCP | | + +------+ + Reason for Referral Consultation (Routine) +--------+--------+ + + + + | Status | Reason | Specialty | Diagnoses / | Referred By | Referred To | | | | | Procedures | Contact | Contact | +--------+--------+ + + + + | Closed | | Endocrinology | Diagnoses | Conser, | [place], | | | | Diabetes & | H/O gastric | Patricia Lopez NP | MD Beto | | | | Metabolism | bypass | [address] | | | | | Hypovitamino | [address] | [address] | | | | | sis D [address] | [address] | [place], [place] | | | | | nutritional | [place], [place] | [address] | | | | | deficiency | [address] | Phone: | | | | | Other | Phone: | [phone] | | | | | protein-jose manuel | [phone] | Fax: | | | | | nick | Fax: | [phone] | | | | | malnutrition | [phone] | | | | | | Weight | | | | | | | gain | | | | | | | Procedures | | | | | | | CONSULT TO | | | | | | | ENDO | | | | | | | [address] | | | | | | | [address] | | | +--------+--------+ + + + + Reason for Visit + + + | Reason | Comments | + + + | Follow-up visit | | + + + Consultation (Routine) +--------+--------+ + + + + | Status | Reason | Specialty | Diagnoses / | Referred By | Referred To | | | | | Procedures | Contact | Contact | +--------+--------+ + + + + | Closed | | Surgery | | Non-[facility] | Bar | | | | | | Epic Dept | [facility] | | | | | | | [facility] [address] | | | | | | [address] | | | | | | | Mailcode: | | | | | | | [facility] | | | | | | | Health and | | | | | | | Healing, | | | | | | | [address] | | | | | | | [place], [place] | | | | | | | [address] | | | | | | | Phone: | | | | | | | [phone] | | | | | | | Fax: | | | | | | | [phone] | +--------+--------+ + + + + Encounter Details +--------+---------+ + + + | Date | Type | Department | Care Team | Description | +--------+---------+ + + + | 09/23/ | Office | Digestive Health | Patricia Banegas, | H/O gastric bypass | | 2013 | Visit | [facility] [address]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 [address] | (Primary Dx); | | | | [address] | [facility] [address] | Hypovitaminosis D; | | | | Mailcode: Center | [place], [place] | B12 nutritional | | | | for Health and | [address] | deficiency; Other | | | | Healing, [address] | [phone] | protein-calorie | | | | [facility] [place] | | malnutrition; Weight | | | | [address] | | gain; Teeth decayed | | | | [phone] | | | +--------+---------+ + + + [...] + + + | Blood Pressure | 114/62 | 09/23/2012 1:22 PM | | | | | PDT | | + + + + + | Pulse | 74 | 09/23/2012 1:22 PM | | | | | PDT | | + + + + + | Temperature | 36.9 C (98.4 F) | 09/23/2012 1:22 PM | | | | | PDT | | + + + + + | Respiratory Rate | 16 | 09/23/2012 1:22 PM | | | | | PDT | | + + + + + | Oxygen Saturation | - | - | | + + + + + | Inhaled Oxygen | - | - | | | Concentration | | | | + + + + + | Weight | 97.1 kg (214 lb) | 09/23/2012 1:22 PM | | | | | PDT | | + + + + + | Height | 172.7 cm (5' 8") | 09/23/2012 1:22 PM | | | | | PDT | | + + + + + | Body Mass Index | 32.54 | 09/23/2012 1:22 PM | | | | | PDT | | + + + + + documented in this encounter Patient Instructions Patient Instructions Patricia Banegas NP - 09/23/2012 1:52 PM PDTKeep doing what you are doing, you are doing great! You have lost over 50% of excess body weight since your bypass. Please get these labs done at local lab. Please meet with RD. Please meet with endocrinology to discuss medical weight loss options. Stay hydrated, stay active, get enough protein. Calcium citrate 1500 mg per day (take calcium 2 hours away from any iron containing supplem ents) Vitamin D 1000 IU per day, minimum (this will be in your calcium and multivitamins) b12 500 mcg SL (dissolves in your mouth) per day or 1000mcg once monthly as a shot chewable multivitamin with iron, take twice the adult dose (flintstones: two daily) Additional supplements may be recommended based on lab results Reminder: avoid NSAIDS (motrin, alleve, ibuprofen, advil, naproxen), nicotine and alcohol ( these can cause ulcers) If you must take an NSAID, please take a daily omeprazole or prilosec. Tylenol is safe. Exercise, walking, elliptical, swimming If you have vomiting or food sticking, please chew more, and eat slowly. Avoid drinking within 30 min of a meal. If you have vomiting more than 1-2 times per month, please make an appt with me Calories approx. 7129-3438 per day when 3 mos or more out from surgery to maintain weight l oss. Calories may need to be adjusted up for individual needs. I recommend eating 5-6 times per day. SynapSense Protein 60-100+ gms per day Water: 64 oz per day, your urine should be light yellow. Please let up know if you would like a referral to see the Waist Cutter. I would be happy to put in referrals to [facility], medical membership is $198 for 3 mos. If you are 12 mos or more out from surgery and would like referral for excess skin removal please let us know. Call us if you have any questions or concerns, or send Fin Qu[employer] message for non-urgent issue s. Patricia Banegas RN, [facility] Nurse Practitioner for Bariatric Surgery [facility] | [address] | [place], [place] | [address] | documented in this encounter Progress Notes Patricia Banegas NP - 09/23/2012 1:26 PM PDTFormatting of this note might be different fr om the original. Had surgery 9 yrs ago, low weight was 150, now 215. Able to eat a variety of fruits and veg etables. Meats are fine other than pork. Can count calories. Has no teeth, getting dentures in next month. Has had a recent L elbow fx and has had 3 spine surgeries in past. BARIATRIC FOLLOW-UP Belinda Meehan is a 52 y.o. patient who underwent a Zoe en y gastric bypass with Dr. Venkat chau in November 2003. Making good food choices, being more active. Pt has been taking all supps , 60 gms protein daily, 64 oz water daily. Able to eat solid foods, denies vomiting other th an on rare occasion. States regular BM. Denies abd pain. Her main concerns today are to get control over fluctuating weight and lose further weight. Last office visit reviewed. Op-report reviewed. Labs reviewed. Weight 333--> 214 (total 119 lb weight loss) BP 114/62 | Pulse 74 | Temp (Src) 36.9 C (98.4 F) (Oral) | RR 16 | Ht 1.727 m (5' 8") | Wt 97.07 kg (214 lb) | BMI 32.54 kg/(m^2) ALLERGIES: Allergies Allergen Reactions Levaquin (Levofloxacin) Hives and Itching Amitriptyline Grand mal seizures Cipro (Ciprofloxacin) Clarithromycin Hives Mainly in the legs Clindamycin Codeine Ducarad-Nuozellvmt-Bnp-Caff Balance problems Fioricet W/Codeine (Iurjcvfgdw-Lydpbyabsf-Zdi-Cod) Keflex (Cephalexin) Morphine IM ( only in [facility]) made gut pain worse 08/27/06: Trial of oral MSIR caused leg swelling Penicillins Sulfa (Sulfonamide Antibiotics) Tramadol Current outpatient prescriptions:aspirin chewable (BABY ASPIRIN) 81 mg Oral Tablet, Chewabl e, 2 daily, Disp: , Rfl: buPROPion XL (WELLBUTRIN XL) 300 mg Oral Tablet Sustained Release 24 hr, take 1 tablet (300 mg) by oral route once daily, Disp: , Rfl: CALCIUM 600 WITH VITAMIN D OR, 1000 mg tab 4 x daily, Disp: , Rfl: cholecalciferol, Vitamin D3, 1,000 unit Oral tablet, Take 4,000 Units by mouth once daily., Disp: , Rfl: Cyanocobalamin 1,000 mcg/mL Injection Syringe, 1 inj q month, Disp: , Rfl: Docusate Sodium 100 mg Oral Tablet, take 1 tablet (100 mg) by oral route once daily at bedt erika as needed, Disp: , Rfl: ferrous gluconate 325 mg (36 mg iron) Oral tablet, Take 300 mg by mouth once daily., Disp: , Rfl: furosemide (LASIX) 40 mg Oral Tablet, take 1 tablet (80 mg) by oral route twice daily, Disp : , Rfl: gabapentin 300 mg Oral Tablet, Take 300 mg by mouth three times daily., Disp: , Rfl: INDERAL LA 120 mg Oral Capsule,Sustained Action 24 hr, Take 80 mg by mouth once daily at be dtime., Disp: , Rfl: levothyroxine 50 mcg Oral Tablet, Once daily., Disp: 30 Tab, Rfl: 3 methocarbamol 750 mg Oral Tablet, Take 1-2 Tabs by mouth three times daily. , Disp: , Rfl: Multivitamin Oral Tablet, 1 tab by mouth twice daily, Disp: , Rfl: POTASSIUM CHLORIDE SR 20 MEQ TAB, PARTICLES/CRYSTALS, take 1 tablet (20meq) by oral route o nce daily with food, Disp: , Rfl: promethazine 25 mg Oral Tablet, 1 tab by mouth as needed, Disp: , Rfl: risedronate (ACTONEL) 35 mg Oral Tablet, Take 1 Tab by mouth every seven days., Disp: 12 Ta b, Rfl: 12 senna-docusate (SENNA WITH DOCUSATE SODIUM) 8.6-50 mg Oral Tablet, Take 2 Tabs by mouth two times daily., Disp: 60, Rfl: 2 sucralfate (CARAFATE) 1 gram Oral Tablet, Take 1 Tab by mouth before meals., Disp: 120, Rfl : 1 VITAMIN C 500 MG CHEWABLE TAB, four times a day, Disp: , Rfl: History: Past Medical History Diagnosis Date Chronic abdominal pain on Oxycodone, NSAIDs, ASA RUQ u/s at OSH reportedly nl panc, bile ducts, liver; ct abd/pel normal, Colorectal polyps Internal hemorrhoid Benign tumor of colon 2006 endoscopy Vertebral fracture T7,8,9 Xray T spine 2003 Optic nerve hemorrhage left eye Sleep apnea Fibromyalgia Intervertebral disc herniation 03/31/07 Pneumonia Abdominal pain Hx of gastric bypass Fibromyalgia 07/25/2008 Craniocervical junction appears stenotic in cervical extension. Other general symptoms Reduced vision Headache Kidney stone Unspecified disorder of thyroid Spondylosis with myelopathy, lumbar region 07/02/2006 Radiculitis, lumbosacral 03/03/2008 Major depressive disorder, recurrent episode, moderate 07/31/2006 Hypothyroidism 11/11/2006 Asthma 493.9 Past Surgical History Procedure Date Salpingo-oophorectomy Colonoscopy 03/2006 Tonsillectomy Pr d&c after delivery Pr inject trigger point, 1 or 2 Knee replacement 02/2007 Left knee Knee replacement 08/2007 right knee Lumbar fusion 05/2008 [id number] with bone spur removals Appendectomy Cholecystectomy section Hysterectomy Gastric bypass C. Deveney wt 278 01/18 Paniculectomy History Social History Marital Status: Single Spouse Name: N/A Number of Children: N/A Years of Education: N/A Occupational History Not on file. Social History Main Topics Smoking status: Current Everyday Smoker -- 1.0 packs/day for 30 years Types: Cigarettes Smokeless tobacco: Not on file Comment: one pack in five days Alcohol Use: No Drug Use: No Sexually Active: No Other Topics Concern Not on file Social History Narrative No narrative on file Family History Problem Relation Cancer Mother Heart Disease Father Additional Family History Father Migraine Additional Family History Mother Migraine Bariatric Medications: MVI with iron twice daily: yes Calcium citrate 1500mg daily: yes B12 500mcg SL daily or monthly shot: yes H2RB/PPI daily: no Actigall 300 BID: no Narcotics: no Symptoms: Nausea: None Dysphagia: None Vomiting: None Heartburn: None Abd Pain: None Constipation: None Diarrhea: None Exam General- Alert and oriented x4, WD, WN, NAD, Obese, well appearing Well hydrated: moist mucous membranes Lungs: regular and even excursion, no audible wheezes Card/Circ: no LE edema Abd - Soft, NT, NR, NG Wounds - well healed Assessment/Plan: 1. S/P Zoe en y gastric bypass, Doing well at 8 yrs. Excellent weight loss overall. (119 l bs), referral to endocrinology for further discussion on medical weight loss options. CBC, CMP, B12, Folate, B1, PTH, vit D, TIBC, ferritin will notify of results Continue with supps as directed, watch protein levels, be sure to get 60 gms daily, be sure to take in 64 oz of water daily. Discussed specific supplements and gave list on AVS. Discussed calorie counting and protein counting. Discussed diet choices, healthy foods, ways to increase protein and iron, offered RD visit. Discussed exercise, types of exercise, offered referral to [facility]. 2. Lacking teeth, pt states she is set up to get dentures in next few months. 3. Recent broken bones, check labs, Vit D, PTH, will adjust vitamin recs based on labs. See PCM for adjusting any other medications. Call if any abd pain, n/v/d or other issues. ER for severe pain. Encouraged pt to F/u at annual post op. Pt agrees to POC and will call or send [employer] message if any issues. Start time 1325, end time 1353. I spent a total of 28 minutes face to face with this patie nt. Over 50% of visit was in counseling. ~ 2 Minutes of additional time spent reviewing chart prior to visit and documenting after t his visit. Patricia Banegas RN, [facility]- Nurse Practitioner for Bariatric Surgery [facility] | [address] | [place], [place] | [address] | documented in this e ncounter Plan of Treatment Not on filedocumented as of this encounter Visit Diagnoses + + | Diagnosis | + + | H/O gastric bypass - Primary Bariatric surgery status | + + | Hypovitaminosis D Unspecified vitamin D deficiency | + + | B12 nutritional deficiency Other B-complex deficiencies | + + | Other protein-calorie malnutrition | + + | Weight gain Abnormal weight gain | + + | Teeth decayed Unspecified dental caries | + + documented in this encounter
--- OUTSIDE RECORDS SUMMARY | ~2019-10-17 | XMS | Encounter Summary ---
Demographics + + + | Address | [address] | | | [place] [address] | + + + | Home Phone | | + + + | Preferred Language | Unknown | + + + | Marital Status | | + + + | Shinto Affiliation | 1001 | + + + | Race | Unknown | + + + | Ethnic Group | Unknown | + + + Author + + + | Author | [facility] | | | and Jairana | + + + | Organization | [facility] | | | [...] Team Providers + +------+ + | Care Line Tender Name | Role | Phone | + +------+ + | Petrona Thapa | PCP | | | MD | | | + +------+ + Reason for Visit +--------+ + | Reason | Comments | +--------+ + | Other | Kidney pain | +--------+ + Encounter Details +--------+ + + + + | Date | Type | Department | Care Team | Description | +--------+ + + + + | 02/04/ | Telephone | [facility] | Emmy-Kamlesh, | Other (Kidney pain ) | | 2017 | | MEDICINE [address] | MD Petrona | | | | | [facility] | [address] [place] [address] | | | | | [place] [address] | [place] [address] | | | | | [phone] | [phone] | | | | | | | [...] as of this encounter Plan of Treatment +--------+---------+ + + + | Date | Type | Specialty | Care Team | Description | +--------+---------+ + + + | 11/14/ | Office | Internal Medicine | Alanis, | | | 2019 | Visit | | MD Petrona | | | | | | [address] [place] | | | | | | [place] [address] | | | | | | [phone] | | | | | | | | +--------+---------+ + + + | 12/20/ | Office | Audiology | Elisabet Munson MS | | | 2019 | Visit | | [facility] | | | | | | [address] [place] [address] [place] | | | | | | [place] [address] | | | | | | [phone] | | | | | | | | +--------+---------+ + + + | 12/20/ | Office | Otolaryngology | Ulysses Genao MD | | | 2020 | Visit | | [address] | | | | | | [address] [place], | | | | | | [place] [address] | | | | | | [phone] | | | | | | | | +--------+---------+ + + + documented as of this encounter Visit Diagnoses Not on filedocumented in this encounter"
--- OUTSIDE RECORDS SUMMARY | ~2019-10-17 | XMS | Encounter Summary ---
Demographics + + + | Address | [address] | | | [place] [address] | + + + | Home Phone | | + + + | Preferred Language | Unknown | + + + | Marital Status | | + + + | Latter Day Affiliation | 1001 | + + + | Race | Unknown | + + + | Ethnic Group | Unknown | + + + Author + + + | Author | [facility] | | | and Jairana | + + + | Organization | [facility] | [...] Team Providers + +------+ + | Care Analyst Microbiology Lab Name | Role | Phone | + +------+ + | Petrona hTapa | PCP | | | MD | | | + +------+ + Reason for Referral Evaluate & Treat (Routine) +--------+ + + + + + | Status | Reason | Specialty | Diagnoses / | Referred By | Referred To | | | | | Procedures | Contact | Contact | +--------+ + + + + + | Closed | Specialty | Physical | Diagnoses | [facility] | | Services | Therapy | Benign | Ulysses Lau MD | HOSPITAL | | | Required | | paroxysmal | [address] | PHYSICAL | | | | | positional | [address] | THERAPY [address] | | | | | vertigo, | [place] | [place] | | | | | unspecified | [place], [place] | [place], [place] | | | | | laterality | [address] | [address] | | | | | Dysfunction | Phone: | Phone: | | | | | of left | [phone] | [phone] | | | | | eustachian | Fax: | Fax: | | | | | tube | [phone] | [phone] | +--------+ + + + + + Encounter Details +--------+ + + + + | Date | Type | Department | Care Team | Description | +--------+ + + + + | 01/04/ | Orders Only | [facility] [place] | Ulysses Genao MD | Benign paroxysmal | | 2018 | | OTOLARYNGOLOGY [address] | [address] [place] | positional vertigo, | | | | [address] | [address] [place], | unspecified | | | | [place], [place] | [place] [address] | laterality (Primary | | | | [address] | [phone] | Dx); Dysfunction of | | | | [phone] | | left eustachian tube | +--------+ + + + + Social [...] [place] | | | | | | [place] [address] | | | | | | [phone] | | | | | | | | +--------+---------+ + + + | 12/20/ | Office | Audiology | Elisabet Munson MS | | | 2019 | Visit | | [facility] [address] | | | | | | [address] [place] | | | | | | [place] [address] | | | | | | [phone] | | | | | | | | +--------+---------+ + + + | 12/20/ | Office | Otolaryngology | Ulysses Genao MD | | | 2019 | Visit | | [address] [place] | | | | | | [address] [place], | | | | | | [place] [address] | | | | | | [phone] | | | | | | | | +--------+---------+ + + + + + +--------+ + + | Name | Type | Priori | Associated Diagnoses | Order Schedule | | | | ty | | | + + +--------+ + + | * [facility] | Outpatient | Routin | Benign paroxysmal | Ordered: 01/04/2018 | | Otolaryngology - AMB | Referral | e | positional vertigo, | | | Referral | | | unspecified | | | | | | laterality | | | | | | Dysfunction of left | | | | | | eustachian tube | | + + +--------+ + + documented as of this encounter Visit Diagnoses + + | Diagnosis | + + | Benign paroxysmal positional vertigo, unspecified laterality - Primary | + + | Dysfunction of left eustachian tube Dysfunction of Eustachian tube | + + documented in this encounter"
--- OUTSIDE RECORDS SUMMARY | ~2019-10-17 | XMS | Encounter Summary ---
Demographics + + + | Address | [address] | | | [place] [address] | + + + | Home Phone | | + + + | Preferred Language | Unknown | + + + | Marital Status | | + + + | Alevism Affiliation | 1001 | + + + [...] Team Providers + +------+ + | Care Health Promotion Specialist Name | Role | Phone | + +------+ + | Petrona Thapa | PCP | | | MD | | | + +------+ + Reason for Visit + + + | Reason | Comments | + + + | Transfer Orders | | + + + Encounter Details +--------+ + + + + | Date | Type | Department | Care Team | Description | +--------+ + + + + | 07/06/ | Telephone | [facility] | Alanis, | Transfer Orders | | 2018 | | [address] | MD Petrona | | | | | [facility] | [address] [place] [address] | | | | | [place] [address] | [place] [address] | | | | | [phone] | [phone] | | | | | | | [...] | | | | [address] [place] | | | | | | [place] [address] | | | | | | [phone] | | | | | | | | +--------+---------+ + + + | 12/20/ | Office | Audiology | Elisabet Munson MS | | | 2019 | Visit | | [facility] [address] | | | | | | [place] [address] [place] | | | | | | [place] [address] | | | | | | [phone] | | | | | | | | +--------+---------+ + + + | 12/20/ | Office | Otolaryngology | Ulysses Genao MD | | | 2020 | Visit | | [address] [place] | | | | | | [address] [place], | | | | | | [place] [address] | | | | | | [phone] | | | | | | | | +--------+---------+ + + + documented as of this encounter Visit Diagnoses Not on filedocumented in this encounter"
--- OUTSIDE RECORDS SUMMARY | ~2019-10-17 | XMS | Encounter Summary ---
Demographics + + + | Address | [address] | | | [place] [address] | + + + | Home Phone [...] + + | Author | [facility] | + + + | Organization | [facility] | + + + | [...] Team Providers + +------+ + | Care Topstitcher Lockstitch Name | Role | Phone | + +------+ + | Pedrito Gutierrez MD | PCP | | + +------+ + Reason for Visit + + + | Reason | Comments | + + + | Refill Request | | + + + Encounter Details +--------+--------+ + + + | Date | Type | Department | Care Team | Description | +--------+--------+ + + + | 04/28/ | Refill | [facility] | VenkatisachCris, | Refill Request | | 2007 | | [facility] [address] | [address] [facility] | | | | | Bethanie Mailcode: CH4S | [facility] | | | | | [facility] | [place], [place] | | | | | and [place], | [address] | | | | | [facility] | [phone] | | | | | Floor [place], [place] | | | | | | [address] | | | | | | [phone] | | | +--------+--------+ + + + [...]
--- OUTSIDE RECORDS SUMMARY | ~2019-10-17 | XMS | Encounter Summary ---
Demographics + + + | Address | [address] | | | [place] [address] | + + + | Home Phone | | + + + | Preferred Language | Unknown | + + + | Marital Status | | + + + | Scientology Affiliation | 1001 | + + + | Race | Unknown | + + + | Ethnic Group | Unknown | + + + Author + + + | Author | [facility] | | | and Jairana | + + + | Organization | [facility] | | | [...] Team Providers + +------+ + | Care Sports Photographer Name | Role | Phone | + [...] | +--------+ + + + + | 12/28/ | Telephone | [facility] | Alanis, | Results, Imaging | | 2017 | | MEDICINE [address] | MD Petrona | | | | | [facility] | [address] [place] [address] | | | | | [place] [address] | [place] [address] | | | | | [phone] | [phone] | | | | | | | [...] | | | | | [address] [place] | | | | | | [place] [address] | | | | | | [phone] | | | | | | | | +--------+---------+ + + + | 12/20/ | Office | Audiology | Elisabet Munson MS | | | 2019 | Visit | | [facility] [address] | | | | | | [place] [address] [address] | | | | | | [place] [address] | | | | | | [phone] | | | | | | | | +--------+---------+ + + + | 12/20/ | Office | Otolaryngology | Ulysses Genao MD | | | 2020 | Visit | | [address] [facility] | | | | | | [address] [place], | | | | | | [place] [address] | | | | | | [phone] | | | | | | | | +--------+---------+ + + + documented as of this encounter Visit Diagnoses Not on filedocumented in this encounter"
--- OUTSIDE RECORDS SUMMARY | ~2019-10-17 | XMS | Encounter Summary ---
Demographics + + + | Address | [address] | | | [place] [address] | + + + | Home Phone | | + + + | Preferred Language | Unknown | + + + | Marital Status | | + + + | Pentecostal Affiliation | 1001 | + + + | Race | Unknown | + + + | Ethnic Group | Unknown | + + + Author + + + | Author | [facility] | | | and Jairana | + + + | Organization | [facility] | | [...] Team Providers + +------+ + | Care Elementary Ell Teacher Name | Role | Phone | + +------+ + | Petrona Thapa | PCP | | | MD | | | + +------+ + Reason for Visit + + + | Reason | Comments | + + + | Toe Pain | | + + + Encounter Details +--------+ + + + + | Date | Type | Department | Care Team | Description | +--------+ + + + + | 08/24/ | Telephone | [facility] | Alanis, | Toe Pain | | 2019 | | MEDICINE [address] [place] [address] | MD Petrona | | | | | [facility] | [address] [place] [address] | | | | | [place] [address] | [place] [address] | | | | | [phone] | [phone] | | | | | | | [...] | | | | | | [place] [address] | | | | | | [phone] | | | | | | | | +--------+---------+ + + + | 12/20/ | Office | Audiology | Elisabet Munson MS | | | 2019 | Visit | | [facility] [address] | | | | | | [place] [address] [place] | | | | | | [place] [address] | | | | | | [phone] | | | | | | | | +--------+---------+ + + + | 12/20/ | Office | Otolaryngology | Ulysses Genao MD | | | 2019 | Visit | | [address] [place] | | | | | | [address] [place], | | | | | | [place] [address] | | | | | | [phone] | | | | | | | | +--------+---------+ + + + + +---------+--------+ + + | Name | Type | Priori | Associated Diagnoses | Order Schedule | | | | ty | | | + +---------+--------+ + + | XR Toe Left 2 + Vw | Imaging | Routin | Toe pain, left | Expected: | | | | e | | 08/24/2018, Expires: | | | | | | 08/25/2019 | + +---------+--------+ + + documented as of this encounter Visit Diagnoses + + | Diagnosis | + + | Toe pain, left - Primary Pain in limb | + + documented in this encounter"
--- OUTSIDE RECORDS SUMMARY | ~2019-10-17 | XMS | Encounter Summary ---
Demographics + + + | Address | [address] | | | [place] [address] | + + + | Home Phone | | + + + | Preferred Language | Unknown | + + + | Marital Status | Single | + + + | Hindu Affiliation | ADV | + + + [...] Team Providers + +------+ + | Care Carboy Filler Name | Role | Phone | + +------+ + | Pedrito Gutierrez MD | PCP | | + +------+ + Reason for Referral Consult to [place] (Routine) +--------+--------+ + + + + | Status | Reason | Specialty | Diagnoses / | Referred By | Referred To | | | | | Procedures | Contact | Contact | +--------+--------+ + + + + | Closed | | Surgery | Diagnoses | Beni, | [place], | | | | | Chronic | Noemi Maier MD | MD Chris | | | | | abdominal | [place] | [address] [facility] | | | | | pain | Health & | [facility] | | | | | Procedures | Science | [address] [place], | | | | | REQUEST TO | [place] | [place] | | | | | SURGERY | [address] [facility] | [address] | | | | | GENERAL DOC | [address] | Phone: | | | | | [place] | Rd | [phone] | | | | | EXPLORATORY | [place], [place] | Fax: | | | | | OF ABDOMEN | [address] | [phone] | | | | | AL FREEING | | | | | | | BOWEL | | | | | | | ADHESION,ENT | | | | | | | EROLYSIS | | | +--------+--------+ + + + + Reason for Visit + + + | Reason | Comments | + + + | Return Patient | | + + + Office Visit - E/M Services (Routine) +--------+--------+ + + + + | Status | Reason | Specialty | Diagnoses / | Referred By | Referred To | | | | | Procedures | Contact | Contact | +--------+--------+ + + + + | Closed | | Surgery | | Non-[facility] | [place], | | | | | | Epic Dept | MD Chris | | | | | | | [address] | | | | | | | [address] | | | | | | | [place], | | | | | | | [place] | | | | | | | [address] | | | | | | | Phone: | | | | | | | [phone] | | | | | | | Fax: | | | | | | | [phone] | +--------+--------+ + + + + Encounter Details +--------+---------+ + + + | Date | Type | Department | Care Team | Description | +--------+---------+ + + + | 11/24/ | Office | Digestive Health | Chris Ruano, | Chronic Abdominal | | 2007 | Visit | Center [address] | [address] | Pain (Primary Dx) | | | | Ave Mailcode: CH4S | [address] | | | | [facility] | [place], [place] | | | | | and Healing, | [address] | | | | | Building 1, 6th | [phone] | | | | | Floor [place], [place] | | | | | | [address] | | | | | | [phone] | | | +--------+---------+ + + + [...] + + + | Blood Pressure | 128/72 | 11/25/2007 1:02 PM | | | | | PDT | | + + + + + | Pulse | 64 | 11/25/2007 1:02 PM | | | | | PDT | | + + + + + | Temperature | 37.1 C (98.8 F) | 11/25/2007 1:02 PM | | | | | PDT | | + + + + + | Respiratory Rate | 12 | 11/25/2007 1:02 PM | | | | | PDT | | + + + + + | Oxygen Saturation | - | - | | + + + + + | Inhaled Oxygen | - | - | | | Concentration | | | | + + + + + | Weight | 87.1 kg (192 lb) | 11/25/2007 1:02 PM | | | | | PDT | | + + + + + | Height | - | - | | + + + + + | Body Mass Index | 28.35 | 11/24/2007 9:07 AM | | | | | PDT | | + + + + + documented in this encounter Progress Notes Chris Ruano - 04/13/2008 3:51 PM PDTI saw and evaluated the patient. I agree with t jayashree findings and the plan of care as documented in the resident s note. CHRIS RUANO MD [facility] [address] [facility], 6th [place] [address] Chris Peralta - 10:55 AM PDTThe patient has had a long history of abdominal pain and now requests ex ploration for a possible internal hernia. Will schedule. I saw the patient with Dr. Saavedra on who performed a hx and phy. Noemi Dickson - 11/25/2007 1:17 PM PDT 11/25/2007 1:10 PM Bariat[facility] Surgery Clinic Follow Up S: Pt here for 2 week follow up of abdominal pain that has been happening for about 2 year s, has been so bad at times that she had to go the ER with very bad pain. Most recently las t month, 10/25/07, with dehydration. At times feels like the water going through is like aci d. No time that is happens more frequently, no particular association with food. Now only eating applesauce and yogurt. Diarrhea every day, sometimes for hours in a row. Does have occ fevers. Did lost 12 lobs in 2 days with last ER visit. Carafate does help after some time. Pain very severe, wakes her from sleep and doubles her over. Interested in surgery. Lap Jacquie en Y Bypass November, lost over 270 lbs Past Medical History Diagnosis Date Chronic Abdominal Pain on Oxycodone, NSAIDs, ASA RUQ u/s at OSH reportedly nl panc, bile ducts, liver; ct abd/pel normal, Colorectal Polyps Internal Hemorrhoid Benign Tumor of Colon 2005 endoscopy Vertebral Fracture T7,8,9 Xray T spine 2003 Optic Nerve Hemorrhage left eye Sleep Apnea Kidney Stone Fibromyalgia Intervertebral Disc Herniation 03/31/07 Reduced Vision Pneumonia Abdominal Pain Hx of gastric bypass Past Surgical History Procedure Date Gastric bypass C. Deveney wt 278 01/18 Paniculectomy Hx cholecystectomy Hx salpingo-oophorectomy Colonoscopy 03/2006 Hx tonsillectomy Pr d&c after delivery Pr inject trigger point, 1 or 2 Hx knee replacement 02/2007 Left knee Hx hysterectomy Hx section Hx knee replacement 08/2007 right knee SH: No EtOH, 1-2 cigs per day, does not work at this time. Lives in [place], [place] FH: Noncontributory ROS: No recent fevers, no chest pain, no SOA Imagin/06 CT Abd/Pelvis: CONCLUSION: 1. Punctate right renal calculus possibly associated with calyceal diverticulum. 2. Status post gastric bypass surgery, cholecystectomy,hysterectomy, and bilateral salpingo oophorectomy. No acute abnormality. 03/20 EGD: - NORMAL: DISTAL ESOPHAGUS. COMMENTS: NORMAL SC JUNCTION AT 41 CM. - PRIOR SURGERY: COMMENTS: JACQUIE-EN-Y ANATOMY. NORMAL APPEARING ANASTOMOSIS, WITHOUT ULCERATION. - NORMAL: DUODENAL 2ND PORTION TO JEJUNUM. BIOPSY/NORMAL TAKEN. PATH # 1. COMMENTS: THE JEJUNUM WAS NORMAL. BX TAKEN TO R/O AKANKSHA. ABNORMAL EXAMINATION, SEE FINDINGS ABOVE. COMMENTS:1. JACQUIE-EN-Y ANATOMY. NORMAL APPEARING MUCOSA ABOVE. NO ULCERATION. THE ANASTOMOSIS IS WIDELY PATENT AND NO ULCERATION WAS SEEN. 03/20 Colonoscopy: - MULTIPLE POLYPS: SIGMOID COLON. MAXIMUM SIZE 3 MM. PROCEDURE: BIOPSY WITHOUT CAUTERY, REMOVED, POLYP RETRIEVED, 2 POLYPS POLYPS SENT TO PATHOLOGY. PATH # 2. - MULTIPLE POLYPS: SIGMOID COLON TO RECTUM. MINIMUM SIZE 4 MM, MAXIMUM SIZE 5 MM. PROCEDURE: SNARE WITHOUT CAUTERY, REMOVED, POLYP RETRIEVED, 2 POLYPS POLYPS SENT TO PATHOLOGY. PATH # 3. ICD9: NEOPLASIA, BENIGN, LARGE BOWEL: 05/20 UGI: IMPRESSION: 1. Expected postsurgical changes of Jacquie-en-Y gastric bypass procedure. 2. Small sliding hiatal hernia. 3. An explanation for the patient's lower abdominal cramping is not identified. Small bow el follow-through appears within normal limits. Assessment: 47yo F s/p gastric bypass now with chronic abdominal pain and multiple negative studies Plan: To [place] on 12/24/07 for exp lap Labs and CXR today PAT today Limit or stop smoking documented in this enco unter Plan of Treatment Not on filedocumented as of this encounter Procedures + +--------+ + + + | Procedure Name | Priori | Date/Time | Associated Diagnosis | Comments | | | ty | | | | + +--------+ + + + | X-RAY CHEST 2 VIEW | Routin | 11/25/2007 | Chronic Abdominal | Results for this | | | e | 2:56 PM | Pain | procedure are in the | | | | PDT | | results section. | + +--------+ + + + documented in this encounter Results INR (08/28/2008 3:31 PM PDT) + + + + + + | Component | Value | Ref Range | Performed | Pathologist | | | | | At | Signature | + + + + + + | INR | 0.96Comment: | 0.90 - 1.20 INR | [facility] | | | | INR Therapeutic ranges | | DEPARTMENT | | | | for full | | OF | | | | anticoagulation: | | PATHOLOGY | | | | INR for Venous | | | | | | Thromboembolism | | | | | | (2.0-3.0) | | | | | | INR INR for most | | | | | | patients with mech. | | | | | | valves (2.5-3.5) | | | | | | INR | | | | + + + + + + + + | Specimen | + + | Blood - Blood | + + + + + + + | Performing | Address | City/State/Zipcode | Phone Number | | Organization | | | | + + + + + | [facility] | [address] | [place] [address] | | | PATHOLOGY | [address] | | | + + + + + | [facility] | [address] | [place] [address] | | | PATHOLOGY | [address] | | | + + + + + X-RAY CHEST 2 VIEW (11/25/2007 2:56 PM PDT) + + + + + + | Component | Value | Ref Range | Performed | Pathologist | | | | | At | Signature | + + + + + + | CHEST, 2 | PA and lateral | | | | | VIEWS [place] | chest.Comparison | | | | | STEREO | 09/14/2006.Heart , hilar, | | | | | | and mediastinal contours | | | | | | are normal. Lungs are | | | | | | clear. Osseous | | | | | | structures are intact. | | | | | | Cholecystectomy clips | | | | | | are | | | | | | unchanged.IMPRESSION:1. | | | | | | No active Disease in | | | | | | the chest.I have | | | | | | personally viewed this | | | | | | procedure/exam and | | | | | | reviewed this | | | | | | report.STATUS FINAL / | | | | | | Dr. RICARDO FORD | | | | + + + [...] + | Diagnosis | + + | Chronic abdominal pain - Primary Abdominal pain, unspecified site | + + documented in this encounter"
--- OUTSIDE RECORDS SUMMARY | ~2019-10-17 | XMS | Encounter Summary ---
Demographics + + + | Address | [address] | | | [place] [address] | + + + | Home Phone | | + + + | Preferred Language | Unknown | + + + | Marital Status | Single | + + + | Hinduism Affiliation | ADV | + + + [...] Team Providers + +------+ + | Care Cnc Operator Programmer Name | Role | Phone | + +------+ + PCP | Unavailable | + +------+ + Encounter Details +--------+ + + + + | Date | Type | Department | Care Team | Description | +--------+ + + + + | 06/26/ | [facility] | | Letter, Clinic | Letters | | 2004 | scribed | | | | +--------+ + + [...] as of this encounter Progress Notes Interface, Equipment Maint Tech In - 01/11/2005 5:17 PM PDT [place] [facility] [address] [place] [address] or June 26, 2003 Pedrito Gutierrez M.D. [address] [place] [address] RE: BELINDA MEEHAN MR #: [id number] Dear Dr. Gutierrez: I had the pleasure of seeing your patient, Ms. Belinda Meehan, today in the [facility] Division of Rheumatology Clinic. She was evaluated here for her complaints of pain and generalized fatigue. Specifically, she stated she is having severe pain bilaterally in her knees, hands, and hips as well as her shoulders. The most severe pain that she suffers from is in the hands and wrist as well as the knees. In reviewing her history of these pains, they have a different characteristic dependent upon location. Beginning with the pain in her hands and wrists, she has been having these for approximately 2 years, they are worse in cold weather and after prolonged periods of inactivity, and they are exacerbated with movement. She states that the pain in her right wrist is particularly severe and they radiate up the right arm. She reports bilateral knee pain as well which she states is also worse with cold weather and prolonged periods of inactivity, it is worse in the morning upon awakening and is associated with significant grating or popping-type sensation in the knee whenever she moves it. Regarding her low back pain and her hip pain, this pain is more of a dull ache, constant, and chronic, and she reports having it for approximately 20 years. She denies any significant exacerbation with activity though it is worse with cold weather. In association to these pains, she notices prolonged history of difficulty with sleeping, which improves significantly after starting CPAP, but she still reports having only about 3 nights per week of restful sleep. She gives a long history of significant fatigue which limits her activity dramatically. Notably, she denies any difficulty with irritable bowel-type symptoms such as cramping or diarrhea alternating with constipation. She does report swelling in the hands and knees but is not able to specify this further and states that she gets redness when it is very cold but otherwise does not have warmth or temperature changes in the joints. She frequently does feel sleepy during the day. In addition to this, she reports having frequent aches and pains in a variety of areas which are less severe and are not constant issues. She notes in the past she has had evaluation with MRI and CT of her neck and spine which was unrevealing. She reports having plain films of her knee a long time ago but not recently as well as a hand film of the left hand approximately 1 week ago. She does have headaches which are migraine in nature. She notes that she has been participating in physical therapy and that she gets some relief from ultrasound massage as well as a warm therapeutic pool, but she does not tolerate ice therapy at all. She has been attempting to exercise and she notes trying to quit smoking in preparation for gastric bypass surgery and that she has managed to reduce her smoking to approximately 1 pack of cigarettes per week. Her review of systems is otherwise negative. Specifically, it is negative for fever or chills, recent weight loss, and sore throat. Activity inventory is notable for the fact that she states she could not walk 2 blocks. She cannot wash and dry dishes by hands. She cannot climb stairs or blow dry her hair, and she needs assistance with all of her activities of ADL on occasion. Her previous medical history is significant for 1. Fibromyalgia and chronic fatigue syndrome. 2. Previous suspicion of myopathy but negative EMG report from the Department of Neurology here. 3. Morbid obesity. 4. Hypercholesterolemia. 5. Hypertension. 6. Glucose intolerance. 7. Obstructive sleep apnea. 8. Heart attack, per history. 9. Gastroesophageal reflux disease. 10. Depression and anxiety. 11. Secondary hypoparathyroidism. 12. Migraine history. 13. Left ischemic optic neuropathy. 14. Bilateral carpal tunnel release. Family History: Multiple maternal relatives with fibromyalgia-type symptoms as well as arthritis and thyroid disease, otherwise unremarkable. Her social history is notable for 2 children which are grown, a history of smoking as described previously. No alcohol, no illegal drugs, and she is currently disabled. Current Medications 1. Inderal 160 mg b.i.d. 2. Diclofenac 75 mg b.i.d. 3. Ibuprofen 80 mg t.i.d. 4. Aspirin 81 mg q.d. 5. Axid 300 mg q.d. 6. Calcium plus D 2 times a day. 7. Multivitamin once a day. 8. Flexeril 10 mg p.r.n. 9. Lexapro 10 mg q.d. 10. Triamterene and hydrochlorothiazide 75/50 mg q.d. HER ALLERGIES ARE PENICILLIN, KEFLEX, CODEINE, SULFA DRUGS, CLINDAMYCIN, AND LATEX. Beginning the patient's physical exam today was as follows. Her blood pressure was 100/70, her weight was 335 pounds, and her BMI was 48, her age is 43, as stated in reports was 67. Her exam was notable for her morbid obesity, the absence of any TMJ symptoms. She had a normal cardiac and pulmonary exam, and her abdominal exam was only notable for a large pannus. Regarding her musculoskeletal exam, she did not have any kind of synovitis, induration of the joints, or erythema in the area of the joints. She did have a limitation in the range of motion of her shoulders with forward abduction. She had pressure point tenderness that was notable over the mid trapezius, the anterior acromial sternal joint, the lateral epicondyle of the bilateral elbows, the lateral aspects of the lower back as well as the medial aspects of both knees. She had significant crepitus upon extension of the bilateral knees, and she did have pain with movement of the right thumb passively. It is our impression that Ms. Meehan does indeed have fibromyalgia. This is based on her history of fatigue, generalized pain, and pain at specific pressure points consistent with fibromyalgia. Her sleep disturbance pattern is also very significant for fibromyalgia. In addition to this, we are concerned that she might have significant osteoarthritis as she has notable risk factors for this. Particularly, her sex and body weight. This is the most likely explanation for the pain in her hands and wrist as well as the progressive pain in her knees. We would suggest the following at this time: We have sent her for bilateral plain radiographs of the hands, wrists, and knees. We prescribed her 25 mg of amitriptyline q.h.s. which has often been efficient for people with fibromyalgia-related sleep disturbance, and we would suggest that she engage in quad strengthening exercise, exercises with physical therapy to treat her possible osteoarthritis. Particularly, patellofemoral-type strengthening exercises. Again, thank you for the opportunity to see this very pleasant patient. We will have her follow up with us to review her radiographs, and we will be in touch regarding our final recommendations after that visit. Sincerely, Sesra Nash M.D. NURIA / SHARIF [id number] / [id number] / [id number] / [id number] cc: Kelley Alegre [address] [place] [address] FAX: [phone] signed by Interface, Equipment Maint Tech In at 01/11/2005 5:17 PM PDTdocumented in this encounter Plan of Treatment Not on filedocumented as of this encounter Visit Diagnoses Not on filedocumented in this encounter"
--- OUTSIDE RECORDS SUMMARY | ~2019-10-17 | XMS | Encounter Summary ---
Demographics + + + | Address | [address] | | | [place] [address] | + + + | Home Phone | | + + + | Preferred Language | Unknown | + + + | Marital Status | Single | + + + | Hoahaoism Affiliation | ADV | + + + | Race | White | + + + | Ethnic Group | Not or | + + + Author + + + | Author | [facility] | + + + | Organization | [facility] | + + + [...] Team Providers + +------+ + | Care Sheet Metal Duct Installer Apprentice Name | Role | Phone | + +------+ + | Pedrito Gutierrez MD | PCP | | + +------+ + Reason for Visit + + + | Reason | Comments | + + + | Follow-up encounter | | + + + Encounter Details +--------+ + + + + | Date | Type | Department | Care Team | Description | +--------+ + + + + | 08/27/ | Telephone | MARK Basilio | Nathalia Arora | Follow-up encounter | | 2006 | | Pain Center at | [address] | | | | | [facility] | [address] [place], | | | | | [address] | [place] [address] | | | | | Mailcode: CH15P | | | | | | [facility] | | | | | | and Healing, | | | | | | Building | | | | | | Floor [place], [place] | | | | | | [address] | | | | | | [phone] | | | +--------+ + + + [...]
--- OUTSIDE RECORDS SUMMARY | ~2019-10-17 | XMS | Encounter Summary ---
Demographics + + + | Address | [address] | | | [place] [address] | + + + | Home Phone | | + + + | Preferred Language | Unknown | + + + | Marital Status | Single | + + + | Restorationism Affiliation | ADV | + + + | Race | White | + + + | Ethnic Group | Not or | + + + Author + + + | Author | [facility] | + + + | Organization | [facility] | + + + | Address [...] Providers + +------+ + | Care Truck Shop Supervisor Name | Role | Phone | + +------+ + | Pedrito Gutierrez MD | PCP | | + +------+ + Reason for Visit +--------+ + | Reason | Comments | +--------+ + | Other | abdominal swelling | +--------+ + Encounter Details +--------+ + + + + | Date | Type | Department | Care Team | Description | +--------+ + + + + | 09/11/ | Telephone | [facility] | Chris Padgett, | Other (abdominal | | 2009 | | Center [address] | MD [address] | swelling) | | | | [address] Mailcode: CH4S | [facility] | | | | | [facility] | [place], [place] | | | | | and Healing, | [address] | | | | | [facility] | [phone] | | | | | Floor [place], [place] | | | | | | [address] | | | | | | [phone] | | | +--------+ + + + [...]
--- OUTSIDE RECORDS SUMMARY | ~2019-10-17 | XMS | Encounter Summary ---
Demographics + + + | Address | [address] | | | [place] [address] | + + + | Home Phone | | + + + | Preferred Language | Unknown | + + + | Marital Status | Single | + + + | Taoism Affiliation | ADV | + + + | Race | White | + + + | Ethnic Group | Not or | + + + Author + + + | Author | [facility] | + + + | Organization | [facility] | + + + | [...] Providers + +------+ + | Care Business Architect Name | Role | Phone | + +------+ + | Maria Esther Cintron MD | PCP | | + +------+ + Encounter Details +--------+ + + + + | Date | Type | Department | Care Team | Description | +--------+ + + + + | 09/21/ | Telephone | [facility] | Chris Padgett, | | | 2008 | | [place] [address] | [address] [facility] | | | | | [place] Mailcode: CH4S | [address] | | | | | [facility] | [place], [place] | | | | | and Healing, | [address] | | | | | Building , 6th | [phone] | | | | | Floor [place], [place] | | | | | | [address] | | | | | | [phone] | | | +--------+ + + + [...]
--- OUTSIDE RECORDS SUMMARY | ~2019-10-17 | XMS | Encounter Summary ---
Demographics + + + | Address | [address] | | | [place] [address] | + + + | Home Phone | | + + + | Preferred Language | Unknown | + + + | Marital Status | | + + + | Faith Affiliation | 1001 | + + + [...] + + +---------+ + | Marco Antonio Welsl | ECON | Unknown | | + + +---------+ + Care Team Providers + +------+ + | Care Fixture Repairer Fabricator Name | Role | Phone | + +------+ + | Petrona Thapa | PCP | | | MD | | | + +------+ + Reason for Visit + + + | Reason | Comments | + + + | Pain Management | | + + + Encounter Details +--------+ + + + + | Date | Type | Department | Care Team | Description | +--------+ + + + + | 05/28/ | Telephone | [facility] | Alanis, | Pain Management | | 2016 | | MEDICINE [address] [place] [address] | MD Petrona | | | | | [facility] | [address] [place] [address] | | | | | [place] [address] | [place] [address] | | | | | [phone] | [phone] | | | | | | | [...] | | | | | | [place] [address] | | | | | | [phone] | | | | | | | | +--------+---------+ + + + | 12/20/ | Office | Audiology | Elisabet Munson MS | | | 2019 | Visit | | [facility] [address] | | | | | | [place] [address] [place] | | | | | | [place] [address] | | | | | | [phone] | | | | | | | | +--------+---------+ + + + | 12/20/ | Office | Otolaryngology | Ulysses Genao MD | | | 2020 | Visit | | [address] [place] | | | | | | [address] [place], | | | | | | [place] [address] | | | | | | [phone] | | | | | | | | +--------+---------+ + + + documented as of this encounter Visit Diagnoses Not on filedocumented in this encounter"
--- OUTSIDE RECORDS SUMMARY | ~2019-10-17 | XMS | Encounter Summary ---
Demographics + + + | Address | [address] | | | [place] [address] | + + + | Home Phone | | + + + | Preferred Language | Unknown | + + + | Marital Status | Single | + + + | Quaker Affiliation | ADV | + + + [...] Team Providers + +------+ + | Care Lactation Coordinator Name | Role | Phone | + +------+ + PCP | Unavailable | + +------+ + Encounter Details +--------+ + + + + | Date | Type | Department | Care Team | Description | +--------+ + + + + | 07/27/ | Discharge | | Summary, Discharge | D/C Summary ODDS | | 2006 | Summary-Tra | | | | | [...] as of this encounter Discharge Summaries Interface, Prototype Special Build In - 08/30/2005 2:07 AM PST [id number] GEOVANNI Barnes Admission Date: 07/24/2005 Discharge Date: 07/27/2005 Staff Physician: Chris Padgett M.D. Service: Bariatric Green Surgery Service. 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 Principal Procedure: Exploratory laparoscopy with lysis of adhesions. Reason for Admission: This is a 45-year-old female who underwent a laparoscopic gastric bypass about 2 years ago. Following the surgery, she lost significant amount of weight and underwent an abdominoplasty following this. She noticed that she was doing quite well before the abdominoplasty, however, following abdominoplasty, she started developing intermittent symptoms of abdominal pain after eating. This pain was relieved on its own after few hours. This continued to happen on relatively frequent and regular basis. The patient was evaluated for a suspicion of intermittent bowel obstruction due to adhesions. All her imaging studies were negative and hence, the patient was admitted for exploration and lysis of adhesions. Hospital Course: The patient was admitted to the hospital on July 24, 2005, and she was taken to the OR. Exploratory laparoscopy was carried out. The Zoe limb appeared to be intact and as well as gastrojejunostomy and jejunojejunostomy appeared intact. There was some dilation of small bowel modestly towards the end of the ileum near the ileocecal valve. Multiple adhesions down in the pelvis were seen, and these were taken down. There was no clear evidence of any internal hernia and hence, the adhesions were the most likely cause of the intermittent abdominal pain and symptoms. The patient tolerated this procedure well, and there was no intraoperative complications. Postoperatively, the patient was kept in the vasquez for observation and recovery. Her postoperative course was completely benign. Her diet was slowly advanced which she tolerated without nausea and vomiting. She was ambulating and afebrile throughout her hospital course. On July 27, 2005, it was decided to discharge the patient to home. At the time of discharge, she was afebrile, ambulating, and tolerating diet with no nausea or vomiting. We will follow up Ms. Meehan in an outpatient basis in about 2 weeks in clinic. Discharge Medication(s): Oxycodone 5 to 10 mg p.o. 4 to 6 hours p.r.n. pain; promethazine 25 mg 1 p.o. 8 hours p.r.n. nausea; cyanocobalamin 1000 mcg subcutaneous per every month; ranitidine 150 mg p.o. b.i.d.; Wellbutrin 300 mg p.o. once daily; diclofenac 50 mg p.o. b.i.d.; Vistaril 25 mg p.o. nightly; Bioptic 0.25% eye drops, 1 drop right eye 2 to 3 times; Alrex 0.2% 1 drop both eyes once daily; aspirin 325 mg p.o. daily to hold aspirin for a week before starting; Colace 200 mg p.o. b.i.d.; vitamin C 500 mg 1 p.o. daily; and multivitamins 1 p.o. daily. Diet: The patient to go back on the diet plan that she was on before the surgery. Activity: No restrictions. Followup Appointments: With Dr. Chris Padgett in 2 weeks in clinic, call for an appointment. oJanna Ritchie M.D. / [id number] / [id number] / [id number] / Electronically signed by Chris Padgett 08-29-2005 03:28:23 PM documented i n this encounter Plan of Treatment Not on filedocumented as of this encounter Visit Diagnoses Not on filedocumented in this encounter"
--- OUTSIDE RECORDS SUMMARY | ~2019-10-17 | XMS | Encounter Summary ---
Demographics + + + | Address | [address] | | | [place] [address] | + + + | Home Phone | | + + + | Preferred Language | Unknown | + + + | Marital Status | | + + + | Synagogue Affiliation | 1001 | + + + [...] Team Providers + +------+ + | Care Dye House Hand Name | Role | Phone | + +------+ + | Petrona Thapa | PCP | | | MD | | | + +------+ + Reason for Visit + + + | Reason | Comments | + + + | Fall | | + + + | Hip Pain | | + + + Encounter Details +--------+ + + + + | Date | Type | Department | Care Team | Description | +--------+ + + + + | 09/03/ | Telephone | [facility] | Alanis, | Fall; Hip Pain | | 2018 | | MEDICINE [address] [place] [address] | MD Petrona | | | | | [facility] | [address] [place] [address] | | | | | [place] [address] | [place] [address] | | | | | [phone] | [phone] | | | | | | | [...] GABRIEL | | | | | | [place] [address] | | | | | | [phone] | | | | | | | | +--------+---------+ + + + | 12/20/ | Office | Audiology | Elisabet Munson MS | | | 2019 | Visit | | [facility] | | | | | | [place] [address] [place] | | | | | | [place] [address] | | | | | | [phone] | | | | | | | | +--------+---------+ + + + | 12/20/ | Office | Otolaryngology | Ulysses Genao MD | | | 2020 | Visit | | [address] [facility] | | | | | | [address] [place], | | | | | | [place] [address] | | | | | | [phone] | | | | | | | | +--------+---------+ + + + documented as of this encounter Visit Diagnoses Not on filedocumented in this encounter"
--- OUTSIDE RECORDS SUMMARY | ~2019-10-17 | XMS | Encounter Summary ---
Demographics + + + | Address | [address] | | | [place] [address] | + + + | Home Phone | | + + + | Preferred Language | Unknown | + + + | Marital Status | Single | + + + | Congregational Affiliation | ADV | + + + | Race | White | + + + | Ethnic Group | Not or | + + + Author + + + | Author | [facility] | + + + | Organization | [facility] | + + + | [...] Team Providers + +------+ + | Care Mushroom Grower Name | Role | Phone | + [...] + + | 05/28/ | Office | [facility] | Lukasz Charles, | Major Depressive | | 2006 | Visit | [address] | PhD [address] | Disorder, Recurrent | | | | Mailcode: CH15P | [place], [place] | Episode, Moderate | | | | [facility] | [address] | ([facility]); LBP (Low Back | | | | and Healing, | [phone] | Pain); 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 female with head, abdominal, back, and leg pain. She reporte d that she has not been doing well. Her doctor thinks she may have pneumonia and she is con sidering going to the hospital. She has swelling in both legs and finds it hard to walk bec ause of the swelling. She has been sedentary and depressed. She is not suicidal. We discu ssed the need to occupy herself with enjoyable and productive activity. We discussed the di fficulty she has through the winter and urged her to keep things in perspective. She expres sed concern that her primary care doctor does not listen to her as much as she would like. We discussed being assertive. Ms. Meehan has some ongoing depression and frustration. She is not suicidal. She has a d ifficult time during the winter months and she is having some acute illness. Diagnosis: Erie I: 1. (296.32) Major depressive disorder, recurrent, moderate. 2. (309.24) Adjustment disorder with anxiety. 3. 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 Erie II: Deferred Erie III: abdominal pain, migraine headache, low back pain. Erie IV: low finances Erie V: GAF 55-60 Plan: Return with next medical follow-up appointment. Check mood, knee surgery, relaxation, acti vity, distraction. Continue cognitive/behavioral therapy. Total time spent with patient was approximately 45 minutes. 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
--- OUTSIDE RECORDS SUMMARY | ~2019-10-17 | XMS | Encounter Summary ---
Demographics + + + | Address | [address] | | | [place] [address] | + + + | Home Phone | | + + + | Preferred Language | Unknown | + + + | Marital Status | Single | + + + | Protestant Affiliation | ADV | + + + | Race | White | + + + | Ethnic Group | Not or | + + + Author + + + | Author | [facility] | + + + | Organization | [facility] | + + + | Address [...] Team Providers + +------+ + | Care Building Certifier Name | Role | Phone | + [...] as of this encounter Progress Notes Interface, Outbound Telemarketing Representative In - 08/14/2005 2:05 AM PST [id number] [facility] Date: 08/06/2005 Clinic: Rheumatology Clinic Belinda [...] of antiinflammatory diet that one of the sales project coordinator in [place] has written a book about, and I have had a patient do extremely well with it in terms of her IBS and fibromyalgia pain and fatigue. Belinda is interested in this and will pursue it. 3. I have given her a lot of articles that she can pass onto her physicians in [place]. She would like somebody there to learn [...] 4 months. Caitlin Rivera M.S., F.N.P. / [id number] / [id number] / [id number] / [phone] cc: Pedrito Gutierrez M.D. [address] [place] [address] Electronically signed by Caitiln Rivera 08-13-2005 03:37:47 PM documented i n this encounter Plan of Treatment Not on filedocumented as of this encounter Visit Diagnoses Not on filedocumented in this encounter"
--- OUTSIDE RECORDS SUMMARY | ~2019-10-17 | XMS | Encounter Summary ---
Demographics + + + | Address | [address] | | | [place] [address] | + + + | Home Phone [...] + + + | Author | [facility] | + + + | Organization | [facility] | + + + | [...] Team Providers + +------+ + | Care Tax Associate Name | Role | Phone | + +------+ + | Pedrito Gutierrez MD | PCP | | + +------+ + Encounter Details +--------+ + + + + | Date | Type | Department | Care Team | Description | +--------+ + + + + | 03/26/ | Telephone | [facility] | Carlos Arreola, | | | 2005 | | Gastroenterology/Hep | [address] | | | | | atology [address] | | | | | [address] | [place] [address] | | | | | Mailcode: PV310 | [phone] | | | | | Physician's Sharmila | | | | | | [address] | | | | | | [place], [place] | | | | | | [address] | | | | | | [phone] | | | +--------+ + + + [...]
--- OUTSIDE RECORDS SUMMARY | ~2019-10-17 | XMS | Encounter Summary ---
Demographics + + + | Address | [address] | | | [place] [address] | + + + | Home Phone | | + + + | Preferred Language | Unknown | + + + | Marital Status | | + + + | Mormon Affiliation | 1001 | + + + | Race | Unknown | + + + | Ethnic Group | Unknown | + + + Author + + + | Author | [facility] | | | and Jairana | + + + | Organization | [facility] | | [...] Team Providers + +------+ + | Care Overnight Houseperson Name | Role | Phone | + +------+ + | Petrona Thapa | PCP | | | MD | | | + +------+ + Reason for Visit Service/Procedure (Routine) +--------+ + + + + + | Status | Reason | Specialty | Diagnoses / | Referred By | Referred To | | | | | Procedures | Contact | Contact | +--------+ + + + + + | Closed | Specialty | Infusion | Diagnoses | | [facility] | | | Services | Therapy | | [facility] | Infusion [address] | | | Required | | Osteoporosis | i, | [address] | | | | | , | [place] | [place], | | | | | unspecified | , [place] [address] | [place] [address] | | | | | osteoporosis | [address] | Phone: | | | | | type, | [place], | [phone] | | | | | unspecified | [place] | Fax: | | | | | pathological | [address] | [phone] | | | | | fracture | Phone: | | | | | | presence | [phone] | | | | | | Procedures | Fax: | | | | | | [place] | [phone] | | | | | | ZOLEDRONIC | | | | | | | ACID 1MG | | | +--------+ + + + + + Encounter Details +--------+ + + + + | Date | Type | Department | Care Team | Description | +--------+ + + + + | 08/18/ | Hospital | [facility] | Alanis, | Osteopenia, | | 2018 | Encounter | MED CTR OP INFUSION | MD Petrona | unspecified location | | | | [address] | [address] [facility] | | | | | [place] | [place] [address] | | | | | [address] | [phone] | | | | | [phone] | | | +--------+ + + + [...] + + + | Blood Pressure | 113/64 | 08/18/2017 12:21 PM | | | | | PST | | + + + + + | Pulse | 64 | 08/18/2017 12:21 PM | | | | | PST | | + + + + + | Temperature | 36.3 C (97.3 F) | 08/18/2017 12:21 PM | | | | | PST | | + + + + + | Respiratory Rate | 16 | 08/18/2017 12:21 PM | | | | | PST | | + + + + + | Oxygen Saturation | 99% | 08/18/2017 12:21 PM | | | | | PST | | + + + + + | Inhaled Oxygen | - | - | | | Concentration | | | | + + + + + | Weight | - | - | | + + + + + | Height | - | - | | + + + + + | Body Mass Index | - | - | | + + + + + documented in this encounter Medications at Time [...] tablet by | 120 | 5 | 07/16/19 | | | diphenoxylate-atropi | mouth 4 times daily | tablet | | 18 | 8 | | ne (LOMOTIL) | as needed for | | | | | | 2.5-0.025 mg per | Diarrhea. | | | | | | tabletIndications: | | | | | | | Chronic diarrhea | | | | | | + [...] +---------+ + + | furosemide (LASIX) | Take 1 tablet by | 180 | 1 | 04/28/20 | | | 80 mg tablet | mouth 2 times daily. | tablet | | 17 | 8 | + + + +---------+ + + | gabapentin | Take 4 capsules by | 360 | 0 | 06/01/20 | | | (NEURONTIN) 300 mg | mouth 3 times daily | capsule | | 17 | 8 | | capsuleIndications: | for 30 days. | | | | | | Chronic bilateral | | | | | | | low back pain | | | | | | | without sciatica | | | | | | + + + +---------+ + + | levothyroxine | Take 1 tablet by | 90 | 3 | 06/01/20 | | | (SYNTHROID) 75 MCG | mouth every morning | tablet | | 17 | 8 | | tabletIndications: | (before breakfast). | | | | | | Acquired | | | | | | | hypothyroidism | | | | | | + [...] | 60 | 3 | 05/04/20 | | | (ROBAXIN) 750 mg | mouth twice a day | tablet | | 17 | 9 | | tabletIndications: | | | | | | | Muscle spasm | | | | | | + + + +---------+ + + | metoprolol | take 1/2 tablet by | 30 | 11 | 03/26/20 | | | tartrate (LOPRESSOR) | mouth twice a day | tablet | | 17 | 8 | | 25 mg tablet | | | | | | + + + +---------+ + + | naloxone (NARCAN) | inject | | 0 | 01/01/20 | | | 0.4 mg/mL injection | subcutaneously ONCE | | | 17 | 8 | | | if needed for | | | | | | | LETHARGY/OVERDOSE | | | | | + + + +---------+ + + | nitroglycerin | Place 0.4 mg under | | 0 | | | | (NITROSTAT) 0.4 mg | the tongue every 5 | | | | 8 | | SL tablet | minutes as needed | | | | | | | for Chest pain. | | | | | + + [...] Take 1 tablet by | 120 | 2 | 07/14/19 | | | (ZOFRAN ODT) 4 mg | mouth every 6 hours | tablet | | 18 | 8 | | disintegrating | as needed for | | | | | | tablet | Nausea. | | | | | + + + +---------+ + + | ondansetron | take 1 tablet by | 120 | 2 | 08/05/19 | | | (ZOFRAN) 4 mg tablet | mouth every 6 hours | tablet | | 18 | 8 | + + + +---------+ + + | potassium chloride | take 3 tablets by | 450 | 1 | 04/28/20 | | | (K-DUR) 20 mEq ER | mouth every morning | tablet | | 17 | 8 | | tablet | and 2 tablets by | | | | | | | mouth every evening | | | | | | | with food | | | | | + + + +---------+ + + | sucralfate | Take 1 g by mouth 4 | | 0 | 02/29/20 | | | (CARAFATE) 1 g | times daily. | | | 12 | 8 | | tablet | | | | [...] tablet by | 25 | 5 | 05/18/20 | | | (DEMADEX) 5 mg | mouth 5 TIMES A WEEK | tablet | | 17 | 8 | | tablet | | | | | | + + + +---------+ + + | travoprost | 1 drop nightly. | | 0 | | | | (TRAVATAN Z) 0.004% | | | | | 9 | | ophthalmic solution | | | | | | + + + +---------+ + + documented as of this encounter Progress Notes Roya Voss RN - 08/18/2017 12:23 PM PST Vitals: 08/18/17 1110 08/18/17 1221 BP: 133/65 113/64 Pulse: 63 64 Resp: 16 16 Temp: 36.5 C (97.7 F) 36.3 C (97.3 F) TempSrc: Oral Oral SpO2: 99% 99% Administrations This Visit zoledronic acid (RECLAST) IVPB 5 mg Admin Date 08/18/2017 Action New Bag Dose 5 mg Rate 200 mL/hr Route Intravenous Administered By Roya Voss RN Monitored throughout treatment; treatment completed without untoward effects from medicatio n noted. Yearly therapy complete, no need for further appt at this time.. Verbalizes underst anding of plan of care. VS stable. Discharged ambulatory to home in stable condition. Electronically signed by: Roya Voss RN 08/18/2017 12:25 ikita Guzman, PharmD - 08/18/2017 11:[address] Booth office and got verbal report of what pts most r ecent Scr was from her lab draw at [facility]. Marlyn PharmD reports it was 0.81 mg/dL. This would make her CrCl= 92mL/min based on adjust body weight. We are ok to give Reclast and n ot draw a new Scr. Nikita Guzman PharmD 08/18/2017 11:38 Roya Espinosa RN - 08/18/2017 11:00 AM PST Vitals: 08/18/17 1110 BP: 133/65 Pulse: 63 Resp: 16 Temp: 36.5 C (97.7 F) Belinda Meehan received into room 441, independent ambulation accompanied by her daugh ter. States here for Reclast infusion. Reports no change in condition, plan of care since [facility] visit. Alert, oriented x 4, cooperative. Electronically signed by: Roya Voss RN 08/18/2017 11:54 Roya Espinosa RN - 0 08/18/2017 10:30 AM PST Vitals: 08/18/17 1221 BP: 113/64 Pulse: 64 Resp: 16 Temp: 36.3 C (97.3 F) Belinda Meehan received into room 4412, independent ambulation accompanied by her daug hter. States here for Reclast infusion. Reports no change in condition, plan of care since magdalene mark MD visit. Alert, oriented x 4, cooperative. Electronically signed by: Roya Voss RN 08/18/2017 13:21 documented in this enc ounter Plan of [...] | | | | | [place] [address] | | | | | | [phone] | | | | | | | | +--------+---------+ + + + | 12/20/ | Office | Audiology | Elisabet Munson MS | | | 2019 | Visit | | [facility] [address] | | | | | | [address] [place] | | | | | | [place] [address] | | | | | | [phone] | | | | | | | | +--------+---------+ + + + | 12/20/ | Office | Otolaryngology | Ulysses Genao MD | | | 2019 | Visit | | [address] | | | | | | [address] [place], | | | | | | [place] [address] | | | | | | [phone] | | | | | | | | +--------+---------+ + + + documented as of this encounter Visit Diagnoses + + | Diagnosis | + + | Osteopenia, unspecified location | + + documented in this encounter Administered Medications + +---------+ +------+-------+------+ | Medication Order | MAR | Action | Dose | Rate | Site | | | Action | Date | | | | + +---------+ +------+-------+------+ | zoledronic acid (RECLAST) IVPB | New Bag | 08/19/19 | 5 mg | 200 | | | 5 mg 5 mg, Intravenous, | | 18 11:51 | | mL/hr | | | Administer over 30 Minutes, ONCE, | | AM PST | | | | | 08/18/17 at 1120, For 1 dose | | | | | | + +---------+ +------+-------+------+ +---+---+ | | | +---+---+ documented in this encounter"
--- OUTSIDE RECORDS SUMMARY | ~2019-10-17 | XMS | Encounter Summary ---
Demographics + + + | Address | [address] | | | [place] [address] | + + + | Home Phone | | + + + | Preferred Language | Unknown | + + + | Marital Status | Single | + + + | Sikh Affiliation | ADV | + + + | Race | White | + + + | Ethnic Group | Not or | + + + Author + + + | Author | [facility] | + + + | Organization | [facility] | + + + | Address [...] Team Providers + +------+ + | Care Jigger Crown Pouncing Machine Operator Name | Role | Phone [...] Pavilion | | | | | | [place], [place] | | | | | | [address] | | | | | | [phone] | | | +--------+ + + + [...]
--- OUTSIDE RECORDS SUMMARY | ~2019-10-17 | XMS | Encounter Summary ---
Demographics + + + | Address | [address] | | | [place] [address] | + + + | Home Phone | | + + + | Preferred Language | Unknown | + + + | Marital Status | | + + + | Zoroastrianism Affiliation | 1001 | + + + | Race | Unknown | + + + | Ethnic Group | Unknown | + + + Author + + + | Author | [facility] | | | and Jairana | + + + | Organization | [facility] | | [...] Team Providers + +------+ + | Care Pole Cutter Name | Role | Phone | + +------+ + | Petrona Thapa | PCP | | | MD | | | + +------+ + Encounter Details +--------+ + + + + | Date | Type | Department | Care Team | Description | +--------+ + + + + | 12/18/ | Anesthesia | [facility] | Ruben Kumar | | | 2017 | Event | MED [facility] INTRA OP | MD [place] [address] | | | | | [address] | [address] [facility] | | | | | [place], [place] | [place] [place] [address] | | | | | [address] | [phone] | | | | | [phone] | | | +--------+ + + + + Anesthesia Record + + + + + | Procedure Name | Responsible | Anesthesia Start | Anesthesia Stop Time | | | Anesthesiologist | Time | | + + + + + | EGD (N/A Mouth) | Ruben Treviño | 12/18/17 1051 | 12/18/17 1202 | | | MD Stacy | | | + + + + + +----+---+ + + | Da | T | Event | Comment | | te | i | | | | | m | | | | | e | | | +----+---+ + + | 07 | 1 | An Checkout | Pre-use anesthesia machine/equipment checkout. | | /0 | 0 | | | | 6/ | 4 | | | | 20 | 7 | | | | 18 | | | | +----+---+ + + | | 1 | An Start | Reassessment prior to anesthesia induction/procedure. | | | 0 | | | | | 5 | | | | | 1 | | | +----+---+ + + | | 1 | AN | Per surgeon request | | | 0 | Antibiotic | | | | 5 | declined | | | | 2 | | | +----+---+ + + | | 1 | Preoxygenat | | | | 0 | ed | | | | 5 | | | | | 3 | | | +----+---+ + + | | 1 | | | | | 0 | | | | | 5 | | | | | 4 | | | +----+---+ + + | | 1 | Pre-Procedu | | | | 0 | ral Timeout | | | | 5 | Completed | | | | 6 | | | +----+---+ + + | | 1 | An | | | | 0 | Induction | | | | 5 | | | | | 7 | | | +----+---+ + + | | 1 | First | | | | 0 | Inc/Proc St | | | | 5 | | | | | 8 | | | +----+---+ + + | | 1 | Breathing | | | | 0 | Spontaneous | | | | 5 | ly | | | | 8 | | | +----+---+ + + | | 1 | Quick Note | Done with EGD | | | 1 | | | | | 0 | | | | | 9 | | | +----+---+ + + | | 1 | an stop | | | | 1 | data | | | | 5 | | | | | 9 | | | +----+---+ + + | | 1 | An Stop | Patient handed off to recovery nurse. | | | 0 | | | | | 2 | | | +----+---+ + + +------+ | Meds | +------+ + + + | Name | Total | + + + | propofol (DIPRIVAN) injection | 50 mg | | (bolus) (20 mL) | | + + + | propofol | 1,019.78 mg | + + + | lidocaine 2% | 100 mg | + + + | lactated ringers (LR) infusion | 1,000 mL | + + + + + | Name | + + | O2 Flow Rate (L/Min) | + + + + | No blood administrations on file. | + + +--------+ + + + | Type | Details | Placement | Removal | +--------+ + + + | Periph | 12/18/17; 928; Right; Forearm; | 12/18/17 0929 by | 12/18/17 1321 by | | lyssa | [id number] catheter system; | Jaye Bird, | Lucy Aviles, | | IV | 20 gauge, 1 1/4 in length; | RN | RN | | | intradermal injection, tolerated | | | | | well; 12/18/17; 1321 | | | +--------+ + + + documented in this encounter Social History + + + +--------+ + [...] | | | | | | [place] [address] | | | | | | [phone] | | | | | | | | +--------+---------+ + + + | 12/20/ | Office | Audiology | Elisabet Munson MS | | | 2019 | Visit | | [facility] [address] | | | | | | [address] [place] | | | | | | [place] [address] | | | | | | [phone] | | | | | | | | +--------+---------+ + + + | 12/20/ | Office | Otolaryngology | Ulysses Genao MD | | | 2019 | Visit | | [address] | | | | | | [address] [place], | | | | | | [place] [address] | | | | | | [phone] | | | | | | | | +--------+---------+ + + + documented as of this encounter Visit Diagnoses Not on filedocumented in this encounter Administered Medications + +---------+ +------+------+------+ | Medication Order | MAR | Action | Dose | Rate | Site | | | Action | Date | | | | + +---------+ +------+------+------+ | lactated ringers (LR) infusion | New Bag | 12/19/19 | | | | | at 100 mL/hr, Intravenous, | | 18 11:59 | | | | | CONTINUOUS, Starting Thu12/18/17 | | AM PDT | | | | | at 0930, Pre-op | | | | | | + +---------+ +------+------+------+ +---------+ +---+-------+---+ | New Bag | 12/19/19 | | 100 | | | | 18 9:28 | | mL/hr | | | | AM PDT | | | | +---------+ +---+-------+---+ +---+---+ | | | +---+---+ + +-------+ +--------+---+---+ | lidocaine (PF) 2% injection | Given | 12/19/19 | 100 mg | | | | Intravenous, PRN, Starting Fri | | 18 10:57 | | | | | 12/18/17 at 1057, Anesthesia | | AM PDT | | | | | Intra-op | | | | | | + +-------+ +--------+---+---+ +---+---+ | | | +---+---+ + +-------+ +-------+---+---+ | propofol (DIPRIVAN) injection | Given | 12/19/19 | 50 mg | | | | Intravenous, PRN, Starting Fri | | 18 10:57 | | | | | 12/18/17 at 1057, Anesthesia | | AM PDT | | | | | Intra-op | | | | | | + +-------+ +-------+---+---+ +---+---+ | | | +---+---+ + +---------+ + +-------+---+ | propofol (DIPRIVAN) injection | New Bag | 12/19/19 | 100 | 61.7 | | | Intravenous, CONTINUOUS PRN, | | 18 11:48 | mcg/kg/m | mL/hr | | | Starting 12/18/17 at 1057, | | AM PDT | in | | | | Anesthesia Intra-op | | | | | | + +---------+ + +-------+---+ + + + +-------+---+ | Rate/Dose Change | 12/19/19 | 160 | 98.7 | | | | 18 11:09 | mcg/kg/m | mL/hr | | | | AM PDT | in | | | + + + +-------+---+ | Rate/Dose Change | 12/19/19 | 180 | 111 | | | | 18 11:03 | mcg/kg/m | mL/hr | | | | AM PDT | in | | | + + + +-------+---+ +---+---+ | | | +---+---+ documented in this encounter"
--- OUTSIDE RECORDS SUMMARY | ~2019-10-17 | XMS | Encounter Summary ---
Demographics + + + | Address | [address] | | | [place] [address] | + + + | Home Phone [...] Team Providers + +------+ + | Care Receiving Barn Custodian Name | Role | Phone | + +------+ + | Sulaiman Carrera MD | PCP | | + +------+ + Encounter Details +--------+ + + + + | Date | Type | Department | Care Team | Description | +--------+ + + + + | 06/24/ | Document-Sc | UNKNOWN DEPARTMENT | Unknown . | | | 2006 | anned | [address] | | | | | | [address] | | | | | | [place], [place] | | | | | | [address] | | | +--------+ + + + [...] | + +--------+ + + + | BONE DENSITOMETRY | | 06/24/2006 | | Results for this | | | | 12:00 AM | | procedure are in the | | | | PST | | results section. | + +--------+ + + + documented in this encounter Results BONE DENSITOMETRY (06/24/2006 12:00 AM PST) + + + | Narrative | Performed At | + + + | | | | | | + + + + + | Procedure Note | + + | Vilma Gibbons - 11/03/2013 10:22 AM PDT | + + documented in this encounter Visit Diagnoses Not on filedocumented in this encounter"
--- OUTSIDE RECORDS SUMMARY | ~2019-10-17 | XMS | Encounter Summary ---
Demographics + + + | Address | [address] | | | [place] [address] | + + + | Home Phone | | + + + | Preferred Language | Unknown | + + + | Marital Status | Single | + + + | Church Affiliation | ADV | + + + [...] Team Providers + +------+ + | Care Clinic Scheduler Name | Role | Phone | + +------+ + | Pedrito Gutierrez MD | PCP | | + +------+ + Encounter Details +--------+ + + + + | Date | Type | Department | Care Team | Description | +--------+ + + + + | 10/05/ | DELETED | Orthopaedics | Ramon Ibarra, | CLINIC NOTES | | 2006 | TRANSCRIPTI | [facility] | [address] | QUESTIONNAIRE | | | ON | for Health and | [facility], [place] | | | | | Healing [address] | [address] | | | | | Bethanie Mailcode: | [phone] | | | | | [facility] | | | | | | Health and Healing, | | | | | | [facility] | | | | | | [place], [place] | | | | | | [address] | | | | | | [phone] | | | +--------+ + + + [...]
--- OUTSIDE RECORDS SUMMARY | ~2019-10-17 | XMS | Encounter Summary ---
Demographics + + + | Address | [address] | | | [place] [address] | + + + | Home Phone [...] Team Providers + +------+ + | Care Family Engagement Specialist Name | Role | Phone | [...] + + | 08/14/ | Office | [facility] | Alanis, | Situational insomnia | | 2020 | Visit | MEDICINE [address] | MD [place]rona | (Primary Dx); | | | | [facility] | [address] [place] [address] | Situational | | | | [place] [address] | [place] [address] | depression | | | | [phone] | [phone] | | | | | | | [...] encounter Progress Notes Petrona Thapa MD - 08/15/2019 9:00 AM PSTFormatting [...] but they have not been accommodating to h er yet. She is asking for a [...] Total Score 10 (08/15/19934) (Printable questionnaires in Kittitian ) Interpretation of Total Score: 1-4 = [...] Common migraine COPD (chronic obstructive pulmonary disease) (HCC) Depression Diarrhea Dumping syndrome Fall at home [...] apnea Spondylosis with myelopathy, lumbar region Stroke ([facility]) Syncope Tremor Type II or unspecified type [...] Procedure: COLONOSCOPY; Surgeon: Luther Brito MD; Location: [facility] MEDICAL PROCEDURE UNIT DILATION AND CURETTAGE OF UTERUS ELBOW SURGERY FINGER TRIGGER RELEASE 2002 FINGER TRIGGER RELEASE 2010 GASTRIC BYPASS SURGERY 2004 HYSTERECTOMY 05/14/1980 JOINT REPLACEMENT Bilateral 2006 2007 KNEE ARTHROSCOPY 2005 LAPAROSCOPY 01/27/2015 LAPAROTOMY 2008 ROTATOR CUFF REPAIR 2005 SPINE SURGERY TONSILLECTOMY 1964 UPPER GASTROINTESTINAL ENDOSCOPY N/A 12/18/2017 Procedure: EGD; Surgeon: Luther Brito MD; Location: [facility] MEDICAL PROCEDURE UNIT CURRENT MEDICATIONS Current Outpatient [...] 1,000 mcg 1,000 mcg Intramuscular Q30 Days Cla Maddie Thapa MD 1,000 mcg at 08/15/19 0920 ALLERGIES Allergies Allergen Reactions Ensure Diarrhea Food Diarrhea Lactose Ceyltysihl-Eic-Sevo-Codeine Other (See Comments) Balance problems Codeine Sulfate Nausea Only Food Allergy Formula Diarrhea Ensure Levofloxacin Hives, Itching and Rash Butalbital Ropinirole Amitriptyline Hcl Other (See Comments) Confused and questionable for seizures Qgfyzohzrj-Gwep-Umaljner Rash duplicate Uffemtudhg-Jbgb-Pboyxbew Hives and Rash Cephalexin Hives Ciprofloxacin Hives and Rash Clarithromycin Hives and Rash Clindamycin Hcl Hives and Rash Doxycycline Rash Duloxetine Other (See Comments) Migraines and nausea Ketorolac Hives Levofloxacin Hives and Rash Morphine Swelling Penicillins Hives and Rash Ropinirole Hcl Hives Sulfamethoxazole-Trimethoprim Hives and Rash Tramadol Hcl Nausea Only FOLLOW-UP No follow-ups on file. Notes: 1. Parts of this documentwere created using [employer] speech recognition software. As a resu lt, there may be unintended word spelling errors. Every attempt was made to correct the di ctation. Gayle colin in this encounter Plan of Treatment +--------+---------+ + + + | Date | Type | Specialty | Care Team | Description | +--------+---------+ + + + | 11/14/ | Office | Internal Medicine | Alanis, | | | 2019 | Visit | | MD [place] | | | | | | [address] [place] | | | | | | [place] [address] | | | | | | [phone] | | | | | | | | +--------+---------+ + + + | 12/20/ | Office | Audiology | Elisabet Munson MS | | | 2019 | Visit | | [facility] [address] | | | | | | [place] | | | | | | [place] [address] | | | | | | [phone] | | | | | | | | +--------+---------+ + + + | 12/20/ | Office | Otolaryngology | Ulysses Genao MD | | | 2020 | Visit | | [address] [facility] | | | | | | [address] [place], | | | | | | [place] [address] | | | | | | [phone] | | | | | | | [...]
--- OUTSIDE RECORDS SUMMARY | ~2019-10-17 | XMS | Encounter Summary ---
Demographics + + + | Address | [address] | | | [place] [address] | + + + | Home Phone | | + + + | Preferred Language | Unknown | + + + | Marital Status | | + + + | Bahai Affiliation | 1001 | + + + [...] Team Providers + +------+ + | Care Multiple Games Dealer Name | Role | Phone | + [...] | +--------+ + + + + | 06/17/ | Telephone | [facility] | Alanis, | Referral | | 2019 | | MEDICINE [address] [place] [address] | MD Petrona | | | | | [facility] | [address] [place] [address] | | | | | [place] [address] | [place] [address] | | | | | [phone] | [phone] | | | | | | | [...] | | | | | | [place] [address] | | | | | | [phone] | | | | | | | | +--------+---------+ + + + | 12/20/ | Office | Audiology | Elisabet Munson MS | | | 2019 | Visit | | [facility] [address] | | | | | | [address] [place] [address] [place] | | | | | | [place] [address] | | | | | | [phone] | | | | | | | | +--------+---------+ + + + | 12/20/ | Office | Otolaryngology | Ulysses Genao MD | | | 2020 | Visit | | [address] [facility] | | | | | | [address] [place], | | | | | | [place] [address] | | | | | | [phone] | | | | | | | | +--------+---------+ + + + documented as of this encounter Visit Diagnoses Not on filedocumented in this encounter"
--- OUTSIDE RECORDS SUMMARY | ~2019-10-17 | XMS | Encounter Summary ---
Demographics + + + | Address | [address] | | | [place] [address] | + + + | Home Phone | | + + + | Preferred Language | Unknown | + + + | Marital Status | | + + + | Sikhism Affiliation | 1001 | + + + | Race | Unknown | + + + | Ethnic Group | Unknown | + + + Author + + + | Author | [facility] | | | and Jairana | + + + | Organization | [facility] | | | [...] Team Providers + +------+ + | Care Excel Specialist Name | Role | Phone | + +------+ + | Petrona Thapa | PCP | | | MD | | | + +------+ + Reason for Referral Diagnostic/Screening (Routine) +--------+--------+ + + + + | Status | Reason | Specialty | Diagnoses / | Referred By | Referred To | | | | | Procedures | Contact | Contact | +--------+--------+ + + + + | Closed | | Radiology | Diagnoses | | OP ST | | | | | Lumbar | Emmy-Tajt | KEN | | | | | radiculopath | i, | HOSPITAL | | | | | y, acute | Sulaiman-Russell | [address] | | | | | Acute | , MD [address] | | | | | midline low | [address] | [place] | | | | | back pain | [place], | [address] | | | | | with | [place] | Phone: | | | | | bilateral | [address] | [phone] | | | | | sciatica | Phone: | Fax: | | | | | Procedures | [phone] | [phone] | | | | | MRI Lumbar | Fax: | | | | | | Spine wo | [phone] | | | | | | Contrast | | | +--------+--------+ + + + + Reason for Visit + + + | Reason | Comments | + + + | Follow-up | 1 month | + + + Encounter Details +--------+---------+ + + + | Date | Type | Department | Care Team | Description | +--------+---------+ + + + | 05/17/ | Office | [facility] | Emmy-Kamlesh, | Lumbar | | 2018 | Visit | MEDICINE [address] [place] [address] | MD Petrona | radiculopathy, acute | | | | [address] | [address] [place] [address] | (Primary Dx); Acute | | | | [place] [address] | [place] [address] | midline low back | | | | [phone] | [phone] | pain with bilateral | | | | | | sciatica; Chronic | | | | | | diarrhea; S/P | | | | | | bariatric surgery | +--------+---------+ + + + Social History [...] + | Blood Pressure | 100/60 | 05/17/2018 9:59 AM | | | | | PST | | + + + + + | Pulse | 60 | 05/17/2018 9:59 AM | | | | | PST | | + + + + + | Temperature | 36.3 C (97.3 F) | 05/17/2018 9:59 AM | | | | | PST | | + + + + + | Respiratory Rate | 16 | 05/17/2018 9:59 AM | | | | | PST | | + + + + + | Oxygen Saturation | 97% | 05/17/2018 9:59 AM | | | | | PST | | + + + + + | Inhaled Oxygen | - | - | | | Concentration | | | | + + + + + | Weight | 92.5 kg (203 lb 14.8 | 05/17/2018 9:59 AM | | | | oz) | PST | | + + + + + | Height | 172.7 cm (5' 8") | 05/17/2018 9:59 AM | | | | | PST | | + + + + + | Body Mass Index | 31.01 | 05/17/2018 9:59 AM | | | | | PST | | + + + + + documented in this encounter Progress Notes Petrona Thapa MD - 05/17/2018 10:30 AM PSTFormatting of this note might be d ifferent from the original. CHIEF COMPLAINT Chief Complaint Patient presents with Follow-up 1 month HPI Belinda Meehan is a 58 y.o. y/o female who presents today for evaluation for worsening low back pain radiating down into her lower extremities. She states in recent weeks her pa in has become worse, she can barely stand for a few minutes, the pain becomes worse and wors e the longer she stands and radiates in the posterior aspect of both lower extremities all t he way down to her feet. She is using crutches sometimes to support her self. When she sta nds the pain is less intense. Head abdominal surgery a few weeks ago and she is recovering well from that. Has had x-ray of the lower back showing degenerative arthritis. No incontinence. REVIEW OF SYSTEMS See HPI for further details. Review of systems otherwise negative. PAST MEDICAL HISTORY Past Medical History: Diagnosis Date Anemia Anxiety Arthritis Atypical chest pain Benign essential hypertension Blind left eye Cervical radiculopathy Chronic bilateral low back pain with left-sided sciatica Chronic low back pain 01/04/2015 Chronic neck pain 01/04/2015 Chronic pain Chronic venous insufficiency Coccydynia COPD (chronic obstructive pulmonary disease) ([facility]) Depression Diarrhea Dumping syndrome Fall at home Fatigue fracture of vertebra Fibromyalgia Full dentures GERD (gastroesophageal reflux disease) Glaucoma Hyperparathyroidism ([facility]) Hypothyroidism IBS (irritable bowel syndrome) Idiopathic scoliosis [...] Procedure: COLONOSCOPY; Surgeon: Luther Brito MD; Location: [facility] MEDICAL PROCEDURE [facility]IT DILATION AND CURETTAGE OF UTERUS ELBOW SURGERY FINGER TRIGGER RELEASE 2002 FINGER TRIGGER RELEASE 2010 GASTRIC BYPASS SURGERY 2004 HYSTERECTOMY 05/14/1980 JOINT REPLACEMENT Bilateral 2007 2008 KNEE ARTHROSCOPY 2005 LAPAROSCOPY 01/27/2015 LAPAROTOMY 2008 ROTATOR CUFF REPAIR 2005 SPINE SURGERY TONSILLECTOMY 1964 UPPER GASTROINTESTINAL ENDOSCOPY N/A 12/18/2017 Procedure: EGD; Surgeon: Luther Brito MD; Location: [facility] MEDICAL PROCEDURE UNIT CURRENT MEDICATIONS Current Outpatient [...] by mouth twice a day 180 tablet 1 gabapentin (NEURONTIN) 300 mg capsule Take 3 capsules by mouth 3 times daily. 270 capsu le 3 HYDROcodone-acetaminophen (NORCO) 10-325 mg per tablet Take 1 tablet by mouth every 6 h ours as needed for Pain. Incontinence Supplies [facility] As directed 100 each 11 levothyroxine (SYNTHROID) 75 MCG tablet take 1 tablet by mouth every morning BEFORE KIERSTEN AKFAST 90 tablet 2 loperamide (IMODIUM) 2 mg capsule Take 2.5 mg by mouth 2 times daily. 4 tablets AM 2 ta blets PM 0 meclizine (ANTIVERT) 25 mg tablet take 1 [...] mouth twice a day 60 capsule 10 potassium chloride (KLOR-CON M20) 20 mEq ER tablet take 3 tablets by mouth every mornin g and 2 every evening with food 450 tablet 1 sucralfate (CARAFATE) 1 g tablet Take 1 tablet by mouth 4 times daily as needed. 120 ta blet 1 SUMAtriptan (IMITREX) 25 mg tablet 1 tab by mouth with onset of migraine, may repeat in 2 hours if no relief. Max 2 tabs/24 hours 9 tablet 2 topiramate (TOPAMAX) 50 MG tablet take 2 [...] Days Morelia Thapa MD 1,000 mcg at 04/08/18 1131 ALLERGIES Allergies Allergen Reactions Lactose Codeine Sulfate Nausea Only Levofloxacin Hives, Itching and Rash Amitriptyline Hcl Other (See Comments) Confused and questionable for seizures Dueqjzoxwk-Xjyf-Robairwr Hives and Rash Cephalexin Hives Ciprofloxacin Hives and Rash Clarithromycin Hives and Rash Clindamycin Hcl Hives and Rash Doxycycline Rash Duloxetine Other (See Comments) Migraines and nausea Ketorolac Hives Levofloxacin Hives and Rash Morphine Swelling Penicillins Hives and Rash Ropinirole Hcl Hives Sulfamethoxazole-Trimethoprim Hives and Rash Tramadol Hcl Nausea Only PHYSICAL EXAM VITAL SIGNS: BP 100/60 | Pulse 60 | Temp 36.3 C (97.3 F) (Temporal) | Resp 16 | Ht 1.727 m (5' 8") | Wt 92.5 kg (203 lb 14.8 oz) | LMP (LMP Unknown) | SpO2 97% | Breastfe eding? No | BMI 31.01 kg/m Constitutional: Well developed, Well nourished, No acute distress, Pleasant female. Cardiovascular: Regular rate & rhythm, No murmurs, No rubs, No gallops. No lower extremitie s edema. Thorax & Lungs: Normal breath sounds, No respiratory distress, No wheezing, No rubs. Skin: Warm, Dry, No erythema, No rash. Musculoskeletal: Reduced range of motion in lower back with tenderness on palpation of the paraspinal muscles in the lumbar area, no spinal crepitation or deformities except reduced l umbar lordosis. Neurologic: Alert & oriented x 3. Motor strength appears to be diminished bilaterally in l ower extremities with standing more than a minute, patient needs to sit down. This could be secondary to pain. DTRs absent in both knees. Psychiatric: Affect normal, Judgment normal, Mood normal. ASSESSMENT & PLAN 1. Lumbar radiculopathy, acute - I gets medically necessary to get a MRI Lumbar Spine wo Contrast; Future, given worsening of symptoms and inability to stand. 2. Acute midline low back pain with bilateral sciatica - MRI Lumbar Spine wo Contrast; Future 3. Chronic diarrhea - diphenoxylate-atropine (LOMOTIL) 2.5-0.025 mg per tablet; Take 1 tablet by mouth 4 times daily. Dispense: 120 tablet; Refill: 0 4. S/P bariatric surgery - diphenoxylate-atropine (LOMOTIL) 2.5-0.025 mg per tablet; Take 1 tablet by mouth 4 times daily. Dispense: 120 tablet; Refill: 0 FOLLOW-UP Return in about 1 month (around 06/17/2018). Note: Parts of this documentwere created using The [employer] speech recognition software. As a r esult, there may be unintended word spelling errors. Every attempt was made to correct the dictation. Gayle colin in this encounter Plan of Treatment +--------+---------+ + + + | Date | Type | Specialty | Care Team | Description | +--------+---------+ + + + | 11/14/ | Office | Internal Medicine | Alanis, | | | 2019 | Visit | | MD Petrona | | | | | | [address] [place] | | | | | | [place] [address] | | | | | | [phone] | | | | | | | | +--------+---------+ + + + | 12/20/ | Office | Audiology | Elisabet Munson MS | | | 2019 | Visit | | [facility] [address] | | | | | | [address] [place] [address] [place] | | | | | | [place] [address] | | | | | | [phone] | | | | | | | | +--------+---------+ + + + | 12/20/ | Office | Otolaryngology | Ulysses Genao MD | | | 2020 | Visit | | [address] [place] | | | | | | [address] [place], | | | | | | [place] [address] | | | | | | [phone] | | | | | | | | +--------+---------+ + + + + +---------+--------+ + + | Name | Type | Priori | Associated Diagnoses | Order Schedule | | | | ty | | | + +---------+--------+ + + | MRI Lumbar Spine wo | Imaging | Routin | Lumbar | Expected: | | Contrast | | e | radiculopathy, acute | 05/17/2018, Expires: | | | | | Acute midline low | 05/17/2019 | | | | | back pain with | | | | | | bilateral sciatica | | + +---------+--------+ + + documented as of this encounter Procedures + +--------+ + + + | Procedure Name | Priori | Date/Time | Associated Diagnosis | Comments | | | ty | | | | + +--------+ + + + | IMAGING REPORT - | | 05/26/2018 | | Results for this | | EXTERNAL SCAN | | 12:00 AM | | procedure are in the | | | | PST | | results section. | + +--------+ + + + documented in this encounter Results IMAGING REPORT - EXTERNAL SCAN (05/26/2018 12:00 AM PST) + + + | Narrative | Performed At | + + + | Ordered by an | | | unspecified provider. | | + + + documented in this encounter Visit Diagnoses + + | Diagnosis | + + | Lumbar radiculopathy, acute - Primary Thoracic or lumbosacral neuritis or | | radiculitis, unspecified | + + | Acute midline low back pain with bilateral sciatica | + + | Chronic diarrhea Diarrhea | + + | S/P bariatric surgery Bariatric surgery status | + + documented in this encounter [...] | | | | First dose on Ginna 10/15/17 at 1215 | | | | [...]
--- OUTSIDE RECORDS SUMMARY | ~2019-10-17 | XMS | Encounter Summary ---
Demographics + + + | Address | [address] | | | [place] [address] | + + + | Home Phone | | + + + | Preferred Language | Unknown | + + + | Marital Status | | + + + | Judaism Affiliation | 1001 | + + + | Race | Unknown | + + + | Ethnic Group | Unknown | + + + Author + + + | Author | [facility] | | | and Jairana | + + + | Organization | [facility] | | [...] Team Providers + +------+ + | Care Tailman Name | Role | Phone | + [...] | +--------+ + + + + | 06/02/ | Telephone | [facility] | Alanis, | Results | | 2018 | | MEDICINE [address] | MD Petrona | | | | | [facility] | [address] [place] [address] | | | | | [place] [address] | [place] [address] | | | | | [phone] | [phone] | | | | | | | [...] | | | | [address] [place] | | | | | | [place] [address] | | | | | | [phone] | | | | | | | | +--------+---------+ + + + | 12/20/ | Office | Audiology | Elisabet Munson MS | | | 2019 | Visit | | [facility] [address] | | | | | | [place] [address] [place] | | | | | | [place] [address] | | | | | | [phone] | | | | | | | | +--------+---------+ + + + | 12/20/ | Office | Otolaryngology | Ulysses Genao MD | | | 2020 | Visit | | [address] [facility] | | | | | | [address] [place], | | | | | | [place] [address] | | | | | | [phone] | | | | | | | | +--------+---------+ + + + documented as of this encounter Visit Diagnoses Not on filedocumented in this encounter"
--- OUTSIDE RECORDS SUMMARY | ~2019-10-17 | XMS | Encounter Summary ---
Demographics + + + | Address | [address] | | | [place] [address] | + + + | Home Phone [...] Team Providers + +------+ + | Care Gas Plant Dispatcher Name | Role | Phone | + [...] as of this encounter Progress Notes Interface, Salesperson Neckties In - 01/12/2006 1:16 AM PDTCLINIC DATE: 05/24/2002 [facility] CARE PROVIDER: Pedrito Gutierrez M.D., [place], [place]. REFERRING PROVIDER : Issac Meeks M.D., [facility] Endocrinology. REASON FOR CONSULTATION: Dr. Meeks recently [...] has some mild associated weakness in her step finisher. She was told she had carpal tunnel [...] use drugs. 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 She is applying for disability compensation. She lives in [facility] and is currently undergoing a divorce. [...] position sense throughout. Coordination: Fine finger movements, trydvh-fl-utny, rapid alternating movements, and enco-ce-grnr maneuvers are intact though lbenhm-zq-lyfb is limited by poor depth perception due [...] Pete M.D. Neurology/Neuromuscular Fellow [employer] / HS [id number] / [id number] / [id number] / cc: Issac Meeks M.D. [facility] Endocrinology Pedrito Gutierrez M.D. [address] [place] [id number] signed by Interface, Salesperson Neckties In at 01/12/2006 1:1 6 AM PDTdocumented in this encounter Plan of Treatment Not on filedocumented as of this encounter Visit Diagnoses Not on filedocumented in this encounter
--- OUTSIDE RECORDS SUMMARY | ~2019-10-17 | XMS | Encounter Summary ---
Demographics + + + | Address | [address] | | | [place] [address] | + + + | Home Phone [...] Team Providers + +------+ + | Care Garden Worker Name | Role | Phone | [...]
--- OUTSIDE RECORDS SUMMARY | ~2019-10-17 | XMS | Encounter Summary ---
Demographics + + + | Address | [address] | | | [place] [address] | + + + | Home Phone [...] Team Providers + +------+ + | Care Court Of Appeals Judge Name | Role | Phone | + +------+ + | Sulaiman Carrera MD | PCP | | + +------+ + Encounter Details +--------+ + + + + | Date | Type | Department | Care Team | Description | +--------+ + + + + | 04/20/ | Documentati | [facility] | Rosi Antonio, | | | 2012 | on | [facility] at | ANP | | | | | [facility] | | | | | | [address] | | | | | | Mailcode: [id number] | | | | | | [facility] | | | | | | and Healing, | | | | | | Building | | | | | | Floor [place], [place] | | | | | | [address] | | | | | | [phone] | | | +--------+ + + + [...] +--------+ + + + | MRI SPINE THORACIC | Routin | 01/31/2013 | | Results for this | | WO CONTRST | e | | | procedure are in the | | | | | | results section. | + +--------+ + + + | MRI SPINE LUMBAR WO | Routin | 01/31/2013 | | Results for this | | CONT | e | | | procedure are in the | | | | | | results section. | + +--------+ + + + | MRI SPINE CERVICAL | Routin | 01/31/2013 | | Results for this | | WO CONTRAST | e | | | procedure are in the | | | | | | results section. | + +--------+ + + + documented in this encounter Results MRI SPINE LUMBAR WO CONTRAST (01/31/2013) + + + | Impressions | Performed At | + + + | 1. Surgical changes of the mid and lower lumbar spine. New | | | bilateral pedicle screws are evident at L3 and L4 compared with | | | July 2011 exam. 2. STIR images show evidence of bone marrow edema | | | adjacent to the left pedicle screw at the L3 vertebral level. No | | | abnormal disc space fluid or paravertebral abnormality. 3. | | | Broad-based disc protrusions at several levels. Neural foraminal | | | narrowing at several levels, most severe at the right L4-5 and | | | bilateral L5-S1 levels. | | + + + MRI SPINE THORACIC WO CONTRAST (01/31/2013) + + + | Impressions | Performed At | + + + | 1. Small subligamentous focal disc protrusion at the T5-6 level, | | | smaller in size compared with october 2010 exam. 2. Small subligamentous | | | disc protrusion at the T1-2 level, new or slightly increased compared | | | with October 2010. No evidence of neural impingement. 3. Small disc / | | | osteophyte complex at T12-L1, stable. | | + + + MRI SPINE CERVICAL WO CONTRAST (01/31/2013) + + + | Impressions | Performed At | + + + | 1. Neural foraminal narrowing secondary to posterolateral | | | osteophytes or disc/ osteophyte complex at the right C3-4 level, | | | right C4-5 level and left C5-6 level. 2. Relatively mild narrowing of | | | the upper central cervical spinal canal at the C1 arch level and | | | C2-3 level, secondary to congenitally short pedicles. | | + + + documented in this encounter Visit Diagnoses Not on filedocumented in this encounter"
--- OUTSIDE RECORDS SUMMARY | ~2019-10-17 | XMS | Encounter Summary ---
Demographics + + + | Address | [address] | | | [place] [address] | + + + | Home Phone [...] Team Providers + +------+ + | Care Link Wire Fabric Machine Operator Name | Role | Phone [...] Description | +--------+--------+ + + + | 08/23/ | Refill | Kraig Turner | Beto Meeks MD | Refill Request | | 2009 | | [facility] | [address] [place] | | | | | [facility] | [place], [place] | | | | | [address] | [address] | | | | | [address] | [phone] | | | | | [facility] | | | | | | Physician's | | | | | | Pavilion [place], | | | | | | [place] [address] | | | | | | [phone] | | | +--------+--------+ + + + [...]
--- OUTSIDE RECORDS SUMMARY | ~2019-10-17 | XMS | Encounter Summary ---
Demographics + + + | Address | [address] | | | [place] [address] | + + + | Home Phone | | + + + | Preferred Language | Unknown | + + + | Marital Status | | + + + | Yazidism Affiliation | 1001 | + + + | Race | Unknown | + + + | Ethnic Group | Unknown | + + + Author + + + | Author | [facility] | | | and Jairana | + + + | Organization | [facility] | | [...] Team Providers + +------+ + | Care Telegraphic Typewriter Operator Name | Role | Phone | + +------+ + | Petrona Thapa | PCP | | | MD | | | + +------+ + Reason for Visit + + + | Reason | Comments | + + + | Lab Order | | + + + Encounter Details +--------+ + + + + | Date | Type | Department | Care Team | Description | +--------+ + + + + | 08/14/ | Telephone | [facility] | Alanis, | Lab Order | | 2017 | | MEDICINE [address] [place] [address] | MD Petrona | | | | | [facility] | [address] [place] [address] | | | | | [place] [address] | [place] [address] | | | | | [phone] | [phone] | | | | | | | [...] | | | | | [place] [address] | | | | | | [phone] | | | | | | | | +--------+---------+ + + + | 12/20/ | Office | Audiology | Elisabet Munson MS | | | 2019 | Visit | | [facility] [address] | | | | | | [place] [address] [place] | | | | | | [place] [address] | | | | | | [phone] | | | | | | | | +--------+---------+ + + + | 12/20/ | Office | Otolaryngology | Ulysses Genao MD | | | 2019 | Visit | | [address] [facility] | | | | | | [address] [place], | | | | | | [place] [address] | | | | | | [phone] | | | | | | | | +--------+---------+ + + + documented as of this encounter Visit Diagnoses + + | Diagnosis | + + | Preop examination - Primary Preoperative examination, unspecified | + + documented in this encounter"
--- OUTSIDE RECORDS SUMMARY | ~2019-10-17 | XMS | Encounter Summary ---
Demographics + + + | Address | [address] | | | [place] [address] | + + + | Home Phone [...] Team Providers + +------+ + | Care Animal Feeder Name | Role | Phone | + +------+ + PCP | Unavailable | + +------+ + Encounter Details +--------+ + + + + | Date | Type | Department | Care Team | Description | +--------+ + + + + | 01/02/ | Telephone | [facility] | Kenisha Melton, | | | 2005 | | [address] | [facility] [address] | | | | | [address] | [address] | | | | | Mailcode: [id number] | [place], [place] | | | | | [facility] | [address] | | | | | [place], [place] | [phone] | | | | | [address] | | | | | | [phone] | | | +--------+ + + + [...]
--- OUTSIDE RECORDS SUMMARY | ~2019-10-17 | XMS | Encounter Summary ---
Demographics + + + | Address | [address] | | | [place] [address] | + + + | Home Phone [...] Providers + +------+ + | Care Film Flat Inspector Name | Role | Phone | [...] + + + + | 09/01/ | Telephone | Orthopaedics | Andrew Angel | Other | | 2006 | | [facility] [place] | MD Darrion,PhD [address] | | | | [facility] and | [address] | | | | | Healing [address] | [place], [place] | | | | | [address] Mailcode: | [id number] | | | | | [facility] | [phone] | | | | | Health and Healing, | | | | | | [facility] | | | | | | Floor [place], [place] | | | | | | [address] | | | | | | [phone] | | | +--------+ + + + [...]
--- OUTSIDE RECORDS SUMMARY | ~2019-10-17 | XMS | Encounter Summary ---
Demographics + + + | Address | [address] | | | [place] [address] | + + + | Home Phone [...] Providers + +------+ + | Care Forestry Workers Name | Role | Phone | + +------+ + PCP | Unavailable | + +------+ + Encounter Details +--------+ + + + + | Date | Type | Department | Care Team | Description | +--------+ + + + + | 07/31/ | Office | [facility] | Clinic, Surgery | Progress Note | | 2006 | Visit-Trans | | | | | | cribed | | [...] as of this encounter Progress Notes Interface, Baby Doctor In - 08/22/2005 2:06 AM PST [id number] [facility] Date: 07/31/2005 Clinic: Surgery Phone Consultation Subjective: Ms. Meehan calls due to having only 9 pills left out of her oxycodone prescription. She was discharged approximately 4 days ago on 40 quantity of oxycodone 5 mg. She underwent a lysis of adhesion and exploratory laparotomy for adhesions. She took more pain medication on the first two days after going home and now has tapered off to 2 to 4 daily. Assessment: Acute pain after lysis of adhesions and exploratory laparotomy. Plan: Emergency supply approved by [facility] in [place]. Quantity 35 was requested and will be filled. I will send a prescription for 40 additional oxycodone 5 mg. The patient will be seen in clinic in one week. Melisa Thorne / SHARIF [id number] / [id number] / [id number] / [id number] Electronically signed by Kenisha Melton 08-21-2005 07:00:10 PM documented corrie cortes this encounter Plan of Treatment Not on filedocumented as of this encounter Visit Diagnoses Not on filedocumented in this encounter"
--- OUTSIDE RECORDS SUMMARY | ~2019-10-17 | XMS | Encounter Summary ---
Demographics + + + | Address | [address] | | | [place] [address] | + + + | Home Phone [...] Team Providers + +------+ + | Care Waste Management Engineer Name | Role | Phone | [...] + + | 05/28/ | Office | [facility] | Delfina Molina, | LBP (Low Back Pain); | | 2006 | Visit | Pain Center at | ANP | Bilateral Knee | | | | [facility] | | Pain; Arthroplasty | | | | [address] | | of the Left Knee; | | | | Mailcode: [id number] | | Encounter for | | | | [facility] | | Long-Term (Current) | | | | and Healing, | | Use of Opioids; | | | | | | Migraine Headache; | | | | Floor [place], [place] | | Herniated Lumbar | | | | [address] | | Intervertebral Disc | | | | [phone] | | L4-5; Fibromyalgia | | | [...] ongoing prescribing and management of leg swelling jane gill. documented in this encounter Progress Notes Delfina Molina - 05/28/2007 11:00 AM PSTFormatting of this note might be different from lesli gomez. 05/28/2007 Belinda Meehan is a 47 y.o. female [facility] Pain Center Return [...] Spondylosis with Myelopathy, Lumbar Region 244.9AQ Hypothyroidism Belindanevin Meehan is a pleasant 47yo obese female [...] diagnostics and lab results. 6. [facility] Post arthroplasty physical rehabiliation. 7. Schedule follow up in one month or sooner if needed - The pateint was asked to call the clinic with any concerns or questions. DELFINA MOLINA [facility] Mail code CH 4P [facility] [address] [place] [id number] asha Nolasco - 05/28/2007 10:01 AM [...] of 103.2 she was seen here at [facility] today the temp is [...]
--- OUTSIDE RECORDS SUMMARY | ~2019-10-17 | XMS | Encounter Summary ---
Demographics + + + | Address | [address] | | | [place] [address] | + + + | Home Phone [...] Author + + + | Author | [facility] | + + + | Organization | [facility] | + + + | [...] Providers + +------+ + | Care Front Office Agent Name | Role | Phone | + +------+ + | Pedrito Gutierrez MD | PCP | | + +------+ + Encounter Details +--------+---------+ + + + | Date | Type | Department | Care Team | Description | +--------+---------+ + + + | 07/30/ | Office | [facility] | Eliezer Ruano, | Abdominal Pain | | 2006 | Visit | [place] [address] | [address] | (Primary Dx) | | | | Ave Mailcode: CH4S | [address] | | | | | [facility] | [facility] [place] | | | | | and Healing, | [address] | | | | | [facility] [address]th | [phone] | | | | | Floor [place], [place] | | | | | | [address] | | | | | | [phone] | | | +--------+---------+ + + + [...] + + + | Blood Pressure | 138/83 | 07/30/2006 3:09 PM | | | | | PST | | + + + + + | Pulse | 83 | 07/30/2006 3:09 PM | | | | | PST | | + + + + + | Temperature | 36.8 C (98.3 F) | 07/30/2006 3:09 PM | | | | | PST | | + + + + + | Respiratory Rate | 16 | 07/30/2006 3:09 PM | | | | | PST | | + + + + + | Oxygen Saturation | - | - | | + + + + + | Inhaled Oxygen | - | - | | | Concentration | | | | + + + + + | Weight | 89.6 kg (197 lb 8 | 07/30/2006 3:09 PM | | | | oz) | PST | | + + + + + | Height | - | - | | + + + + + | Body Mass Index | 29.17 | 07/30/2006 7:41 AM | | | | | PST | | + + + + + documented in this encounter Progress Notes Eliezer Ruano - 08/17/2006 12:06 PM PSTI saw and evaluated the patient. I agree with t he findings and the plan of care as documented in the resident s note. ELIEZER RUANO MD [facility] [address] [facility], [address] [place] [address] alena Palacio - 07/30 4:09 PM PSTS: C/o chronic abd pain, no signif change, intermittent, bilat upper quad, not assoc w/ any particular food or activity. Sometimes so bad she can't breath or walk and has to go to ER for pain meds. PCP "refuses" to Rx pain meds & asked her to stop most of h er meds including vitamins. Also c/o mult other body pains, mostly her chronic migraine. Seen by Pain clinic today as well as Endocrine. Bone density done 06/21 was very low. Will have Vit D levels checked an d start add meds per Endo as indicated. May be referred to Neurologist or Neurosurg b/c of tremor and leg pain and headaches. Eating and stooling w/o problems. C/o stress urinary incontinence but disappointed with P CPs response. Will ask him for referral to Urology. O: Abd soft, NT, no upper abd mass Ambulates w/ cane A: S/p duodenal switch Chronic pain P: Based on mult GI studies there is no anatomic or obvious functional cause of her abd sina n. Advised to restart Vit C (take w/ Ca & Vit D), iron, and MVI. Already seeing Pain clinic. F/U in 3 months. Seen w/ Dr. Ruano. Established patient, 45 minutes. 4:1 0 PM PSTdocumented in this encounter Plan of Treatment Not on filedocumented as of this encounter Visit Diagnoses + + | Diagnosis | + + | Abdominal Pain - Primary Abdominal pain, unspecified site | + + documented in this encounter
--- OUTSIDE RECORDS SUMMARY | ~2019-10-17 | XMS | Encounter Summary ---
Demographics + + + | Address | [address] | | | [place] [address] | + + + | Home Phone | | + + + | Preferred Language | Unknown | + + + | Marital Status | Single | + + + | Cheondoism Affiliation | ADV | + + + [...] Team Providers + +------+ + | Care Strip Presser Name | Role | Phone | + +------+ + | Pedrito Gutierrez MD | PCP | | + +------+ + Encounter Details +--------+ + + + + | Date | Type | Department | Care Team | Description | +--------+ + + + + | 04/01/ | Office | [facility] | Clinic, [...] as of this encounter Progress Notes Interface, Commercial Print Salesman In - 04/07/2006 2:32 AM PDT [id number] [facility] SKELTON Molly [id number] Clinic Date: 04/01/2006 Clinic: Rheumatology Belinda Meehan is here for a couple of trigger point injections. She comes from [place]. Tomorrow, she is due for an EGD and a colonoscopy for continued fairly severe abdominal pain. She has actually had to go to the Emergency Department about once a week for the past several months. She is working with Gastroenterology and is hoping to get a diagnosis for her pain. She would like some trigger points around the upper trapezius area today. Medications: Promethazine 25 mg p.r.n., oxycodone 5 mg 2 every 4 hours currently for the abdominal pain, Prilosec OTC 20 mg, Wellbutrin 300 mg, propranolol 60 mg, cyanocobalamin or B12 at 1 mg monthly, belladonna q. 8 h., furosemide 40 mg, Klor-Con 20 mEq, she also takes a baby aspirin every day and some supplements. Allergies: PENICILLIN, CODEINE, KEFLEX, SULFA, CLINDAMYCIN, CIPRO, TRAMADOL, AND MORPHINE. VAS pain is currently 8/10, fatigue is 5/10. Objective: Vital signs: Weight is 189, pulse is 64 and regular, and blood pressure is 102/72. She has tender myofascial trigger points in the bilateral upper trapezius. I really could find no other painful trigger points through the neck or interscapular area. Plan: We went ahead and did trigger point injections in the bilateral trapezius using 0.5% procaine for a total of 3 mL. She tolerated the injections well. I also did a small trial of microcurrent with her, but she could not stay very long due to another appointment. Therefore, I do not think it made much of a difference. I will see her back in about 4 months. Caitlin Rivera M.S., F.N.P. / [id number] / [id number] / [id number] / [id number] Electronically signed by Caitlin Rivera 04-06-2006 03:23:35 PM documented i n this encounter Plan of Treatment Not on filedocumented as of this encounter Visit Diagnoses Not on filedocumented in this encounter"
--- OUTSIDE RECORDS SUMMARY | ~2019-10-17 | XMS | Encounter Summary ---
Demographics + + + | Address | [address] | | | [place] [address] | + + + | Home Phone [...] Providers + +------+ + | Care Senior Partner Name | Role | Phone | + +------+ + | Pedrito Gutierrez MD | PCP | | + +------+ + Encounter Details +--------+ + + + + | Date | Type | Department | Care Team | Description | +--------+ + + + + | 08/22/ | Hospital | Radiology/Imaging | | | | 2008 | Encounter | Lab at [address] | | | | | | [address] Mailcode: | | | | | | [facility] | | | | | | Health and [facility]aling, | | | | | | [place] [address], | | | | | | Floor [place], [place] | | | | | | [address] | | | | | | [phone] | | | +--------+ + + + [...]
--- OUTSIDE RECORDS SUMMARY | ~2019-10-17 | XMS | Encounter Summary ---
Demographics + + + | Address | [address] | | | [place] [address] | + + + | Home Phone | | + + + | Preferred Language | Unknown | + + + | Marital Status | Single | + + + | Zoroastrianism Affiliation | ADV | + + + [...] Team Providers + +------+ + | Care Labor Relations Specialist Name | Role | Phone | + +------+ + PCP | Unavailable | + +------+ + Encounter Details +--------+ + + + + | Date | Type | Department | Care Team | Description | +--------+ + + + + | 05/29/ | Office | | Note, Outpatient | [...] as of this encounter Progress Notes Interface, Nuclear Medicine Tech In - 06/06/2005 2:05 AM [facility] [id number] [facility] Date: 05/29/2005 Clinic: Bariatric Surgery Clinic Subjective: Ms. Meehan returns today for followup with complaints of pain for the last 3 to 4 months, wakes her up at night. She said it is relatively severe internal pain, radiates across whole of her abdomen, sometimes down to the right lower quadrant. She has no nausea or vomiting or change in bowel habits associated with this pain. She said originally it would come and go, now it comes more frequently and stays longer, she says sometimes 15 to 30 minutes. It is acute in onset and gradually subsides. She has approximately 1 episode a day. She has had workups in [place] including CT and upper GI with small-bowel followthrough which have reportedly been negative. She has some recent changes in her medications including addition of a calcium channel colby and diclofenac. She says her symptoms gets worse every time she takes pain medicine. She is currently taking oxycodone. Her primary doctor in [place] is Dr. Gutierrez. Physical Examination: Vital Signs: Today, weight is 158, blood pressure is 130/78, and pulse is 84. General: She is alert and oriented, in no acute distress, moves relatively easily. Abdomen: Soft and nondistended with moderate diffuse tenderness throughout her upper quadrant. Impression and Plan: Pain status post laparoscopic gastric bypass. She already had her cholecystectomy, so it seems unlikely her pain is from this. She could be having some pain in relation to her medication. She was encouraged to stop the diclofenac. She should also undergo esophagogastroduodenoscopy, which we will try to arrange for her in [place], so she does not have to come out here. We will call Dr. Gutierrez to try to arrange for this and followup her within 3 months. The patient was seen with Dr. Padgett. Karen Cisneros M.D. Chris Padgett M.D. / SHARIF [id number] / [id number] / [id number] / [id number] Electronically signed by Chris Padgett 06-05-2005 05:29:09 PM documented i n this encounter Plan of Treatment Not on filedocumented as of this encounter Visit Diagnoses Not on filedocumented in this encounter"
--- OUTSIDE RECORDS SUMMARY | ~2019-10-17 | XMS | Encounter Summary ---
Demographics + + + | Address | [address] | | | [place] [address] | + + + | Home Phone | | + + + | Preferred Language | Unknown | + + + | Marital Status | | + + + | Buddhist Affiliation | 1001 | + + + [...] Team Providers + +------+ + | Care Pressure Tester Name | Role | Phone | + +------+ + | Petrona Thapa | PCP | | | MD | | | + +------+ + Reason for Visit + + + | Reason | Comments | + + + | Headache | | + + + Encounter Details +--------+ + + + + | Date | Type | Department | Care Team | Description | +--------+ + + + + | 11/03/ | Telephone | [facility] | Alanis, | Headache | | 2019 | | MEDICINE [address] [place] [address] | MD Petrona | | | | | [facility] | [address] [facility] | | | | | [place] [address] | [place] [address] | | | | | [phone] | [phone] | | | | | | | [...] | | | | | | [place] [address] | | | | | | [phone] | | | | | | | | +--------+---------+ + + + | 12/20/ | Office | Audiology | Elisabet Munson MS | | | 2019 | Visit | | [facility] [address] | | | | | | [address] [place] [address] [place] | | | | | | [place] [address] | | | | | | [phone] | | | | | | | | +--------+---------+ + + + | 12/20/ | Office | Otolaryngology | Ulysses Genao MD | | | 2020 | Visit | | [address] [facility] | | | | | | [address] [place], | | | | | | [place] [address] | | | | | | [phone] | | | | | | | | +--------+---------+ + + + documented as of this encounter Visit Diagnoses Not on filedocumented in this encounter"
--- OUTSIDE RECORDS SUMMARY | ~2019-10-17 | XMS | Encounter Summary ---
Demographics + + + | Address | [address] | | | [place] [address] | + + + | Home Phone [...] Team Providers + +------+ + | Care Tin Container Straightener Name | Role | Phone | + +------+ + | Petrona Thapa | PCP | | | MD | | | + +------+ + Reason for Visit Service/Procedure (Routine) +--------+--------+ + + + + | Status | Reason | Specialty | Diagnoses / | Referred By | Referred To | | | | | Procedures | Contact | Contact | +--------+--------+ + + + + | Closed | | Radiology | Diagnoses | | [facility] | | | | | Thoracic or | [place], | [address] | | | | | lumbosacral | Carlos Armijo MD | [place], | | | | | neuritis or | [address] | [place] | | | | | | [address] [place] | [address] | | | | | radiculitis, | [place], [place] | Phone: | | | | | unspecified | [address] | [phone] | | | | | Procedures | Phone: | Fax: | | | | | ND INJECT | [phone] | [phone] | | | | | ANES/STEROID | Fax: | | | | | | FORAMEN | [phone] | | | | | | LUMBAR/SACRA | | | | | | | L W IMG | | | | | | | GUIDE ,1 | | | | | | | LEVEL ND | | | | | | | TRIAMCINOLON | | | | | | | E ACET INJ | | | | | | | NOS, 10 MG | | | | | | | Bilateral | | | | | | | L5-S1 | | | | | | | TFESI-APPT | | | | | | | 8/7 | | | +--------+--------+ + + + + Encounter Details +--------+ + + + + | Date | Type | Department | Care Team | Description | +--------+ + + + + | 01/19/ | [facility] | [facility] | Carlos Hsieh | Lumbar radiculopathy | | 2015 | Encounter | MED CTR XRAY [address] | primarily right | | | | [place] | [facility] [place] | | | | | [place] [address] | [address] | | | | | [phone] | | | | | | | Director Of [facility], [facility] | | | | | | [place] | | +--------+ + + + + [...] this encounter Last Filed Vital Signs + +---------+ + + | Vital Sign | Reading | Time Taken | Comments | + +---------+ + + | Blood Pressure | 113/56 | 01/19/2015 12:02 PM | | | | | PDT | | + +---------+ + + | Pulse | 61 | 01/19/2015 12:02 PM | | | | | PDT | | + +---------+ + + | Temperature | - | - | | + +---------+ + + | Respiratory Rate | - | - | | + +---------+ + + | Oxygen Saturation | - | - | | + +---------+ + + | Inhaled Oxygen | - | - | | | Concentration | | | | + +---------+ + + | Weight | - | - | | + +---------+ + + | Height | - | - | | + +---------+ + + | Body Mass Index | - | - | | + +---------+ + + documented in this encounter Medications [...] + + +---------+ + + | betaxolol | Use twice daily | | 0 | 02/29/20 | | | (BETOPTIC-S) 0.25% | | | | 12 | 8 | | ophthalmic | | | | | | | suspension | | | | | | + + + +---------+ + + | Calcium Carbonate | TABS: 1 tablet by | | 0 | 02/29/20 | | | (CALTRATE 600 PO) | mouth four times a | | | 12 | 9 | | | day | | | | | + + + +---------+ + + | Cyanocobalamin | Take 1,000 mcg by | | 0 | 02/29/20 | | | (B-12) 1000 MCG TBCR | mouth Every 30 days. | | | 12 | 7 | + + + +---------+ + + | | Take 1 tablet by | | 0 | | | | diphenoxylate-atropi | mouth 4 times daily | | | | 7 | | ne (LOMOTIL) | as needed for | | | | | | 2.5-0.025 mg per | Diarrhea. | | | | | | tablet | | | | | | + + + +---------+ + + | DULoxetine | Take 30 mg by mouth | | 0 | 02/29/20 | | | (CYMBALTA) 30 mg | Daily. | | | 12 | 7 | | capsule | | | | | | + + + +---------+ + + | furosemide (LASIX) | Take 80 mg by mouth | | 0 | 02/29/20 | | | 80 mg tablet | 2 times daily. | | | 12 | 7 | + + + +---------+ + + | gabapentin | two caps three times | | 0 | 02/29/20 | | | (NEURONTIN) 300 mg | daily | | | 12 | 7 | | capsule | | | | | | + + + +---------+ + + | | Take 1 tablet by | | 0 | | | | HYDROcodone-acetamin | mouth every 6 hours | | | | 7 | | ophen (NORCO) 10-325 | as needed for Pain. | | | | | | mg per tablet | | | | | | + + + +---------+ + + | ibandronate | Take 150 mg by mouth | | 0 | | | | (BONIVA) 150 mg | Every 30 days. | | | | 7 | | tablet | | | | | | + + + +---------+ + + | levothyroxine | Take 50 mcg by mouth | | 0 | 02/29/20 | | | (SYNTHROID, | Daily. | | | 12 | 7 | | LEVOTHROID) 50 mcg | | | | | | | tablet | | | | | | + + + +---------+ + + | methocarbamol | Take 750 mg by mouth | | 0 | 09/16/20 | | | (ROBAXIN) 750 mg | 3 times daily. | | | 12 | 7 | | tablet | | | | | | + + + +---------+ + + | metoprolol | Take half a tablet | | 0 | 02/29/20 | | | tartrate (LOPRESSOR) | by mouth twice | | | 12 | 7 | | 50 mg tablet | daily. | | | | | [...] + +---------+ + + | omeprazole | Take 40 mg by mouth | | 0 | | | | (PRILOSEC) 20 mg | every morning | | | | 7 | | capsule | (before breakfast). | | | | | + + + +---------+ + + | ondansetron | Take 4 mg by mouth | | 0 | | | | (ZOFRAN ODT) 4 mg | every 6 hours as | | | | 8 | | disintegrating | needed for Nausea. | | | | | | tablet | | | | | | + + + +---------+ + + | potassium chloride | 3 TABS IN AM AND 2 | | 0 | | | | (KLOR-CON) 20 MEQ | TABS IN PM | | | | 7 | | packet | | | | | | + + + +---------+ + + | rOPINIRole | Take 2 mg by mouth | | 0 | | | | (REQUIP) 1 mg tablet | nightly. | | | | 8 | + + + +---------+ + + | sucralfate | Take 1 g by mouth 4 | | 0 | 02/29/20 | | | (CARAFATE) 1 g | times daily. | | | 12 | 8 | | tablet | | | | | | + + + +---------+ + + | topiramate | Take 50 mg by mouth | | 0 | | | | (TOPAMAX) 50 MG | 2 times daily. | | | | 7 | | tablet | | | | | | + + + +---------+ + + | torsemide | Take 5 mg by mouth | | 0 | | | | (DEMADEX) 5 mg | Daily. 5 DAYS A WEEK | | | | 7 | | tablet | | | | [...] | | | | [address] [place] | | | | | | [place] [address] | | | | | | [phone] | | | | | | | | +--------+---------+ + + + | 12/20/ | Office | Audiology | Elisabet Munson MS | | | 2019 | Visit | | [facility] [address] | | | | | | [address] [place] [address] | | | | | | [place] [address] | | | | | | [phone] | | | | | | | | +--------+---------+ + + + | 12/20/ | Office | Otolaryngology | Ulysses Genao MD | | | 2020 | Visit | | [address] [place] | | | | | | [address] [place], | | | | | | [place] [address] | | | | | | [phone] | | | | | | | | +--------+---------+ + + + documented as of this encounter Procedures + +--------+ + + + | Procedure Name | Priori | Date/Time | Associated Diagnosis | Comments | | | ty | | | | + +--------+ + + + | FL EPIDURAL STEROID | Routin | 01/19/2015 | Lumbar | Results for this | | INJECTION LUMBAR | e | 12:00 PM | radiculopathy | procedure are in the | | TRANSFORAMINAL | | PDT | primarily right | results section. | + +--------+ + + + documented in this encounter Results FL ELIANA Lumbar Transforaminal (01/19/2015 12:00 PM PDT) + + | Specimen | + + | | + + + + + | Narrative | Performed At | + + + | 01/19/2015 Bilateral Transforaminal Epidural Steroid Injections | [facility] | | Diagnosis: Lumbar radiculopathy ICD-9 Code 724.4 Belinda Basilio | [facility] | | Shefali presents to the fluoroscopy suite for | [facility] | | fluoroscopically-guided bilateral L5-S1 transforaminal epidural | - IMAGING | | steroid injections as part of conservative management for chronic | | | pain with lumbar radiculopathy and degenerative disk disease. After | | | informed consent was obtained, the patient lay in the prone position | | | on the fluoroscopy table. The areas were identified under | | | fluoroscopic guidance. The areas were prepped and draped in sterile | | | fashion. A 25-gauge, 1.5-inch needle was inserted into each region | | | and approximately 3 mL of buffered 1% lidocaine was infused. Then, a | | | 22-gauge spinal needle was inserted into the posterior superior | | | transforaminal space bilaterally and advanced into the epidural | | | space under fluoroscopic guidance. Confirmation into the epidural | | | space was obtained with infusion of approximately 1 mL of Omnipaque | | | contrast which showed epidural flow as well as nerve sheath flow. | | | Then, a combination of 2 mL of 1% lidocaine and 2 mL of 6 mg/mL | | | Celestone was infused, divided between the two sides. The patient | | | tolerated the procedure well without complications. Pre- and | | | post-procedure blood pressures were stable. The patient was given | | | verbal as well as written follow-up instructions. Prior to the | | | start of the procedure, the following were performed and/or | | | verified, including correct patient identity, correct site/side marked | | | and visible, agreement on the procedure to be done, correct patient | | | positioning and an accurate procedure consent form. Any safety | | | precautions based on clinical history and/or medication use have | | | been addressed. I personally performed the procedure above. | | | Estimated blood loss: Minimal Complications: None Findings: As | | | expected Anesthesia: Local 1% Lidocaine | | + + + + + + + + | Performing | Address | City/State/Zipcode | Phone Number | | Organization | | | | + + + + + | [facility] | [address] | [place] | [phone] | | [facility] | | [address] | | | - IMAGING | | | | + + + + + documented in this encounter Visit Diagnoses + + | Diagnosis | + + | Lumbar radiculopathy primarily right Thoracic or lumbosacral neuritis or radiculitis, | | unspecified | + + documented in this encounter Administered Medications + +--------+ +-------+------+ + | Medication Order | MAR | Action | Dose | Rate | Site | | | Action | Date | | | | + +--------+ +-------+------+ + | betamethasone (CELESTONE | Given | 01/20/20 | 12 mg | | Back-Low | | SOLUSPAN) injection 12 mg 12 mg, | | 15 11:45 | | | er | | Other, EVERY 24 HOURS INTERVAL, | | AM PDT | | | | | First dose on Thu01/19/15 at 1145, | | | | | | | For 2 doses, Shake well. Not for | | | | | | | IV use., | | | | | | + +--------+ +-------+------+ + +---+---+ | | | +---+---+ + +-------+ +-------+---+ + | iohexol (OMNIPAQUE 300) 300 | Given | 01/20/20 | 4 mLs | | Back-Low | | mg/mL injection 4 mL 4 mL, | | 15 11:45 | | | er | | Intra-articular, ONCE, 01/19/15 | | AM PDT | | | | | at 1145, For 1 dose | | | | | | + +-------+ +-------+---+ + +---+---+ | | | +---+---+ + +-------+ +-------+---+ + | lidocaine (PF) 1% injection 2 | Given | 01/20/20 | 2 mLs | | Back-Low | | mL 2 mL, EPIDURAL, ONCE, Fri | | 15 11:45 | | | er | | 01/19/15 at 1145, For 1 dose | | AM PDT | | | | + +-------+ +-------+---+ + +---+---+ | | | +---+---+ + +-------+ +-------+---+ + | lidocaine 1% injection 5 mL 5 | Given | 01/20/20 | 5 mLs | | Other | | mL, Intradermal, ONCE, Thu01/19/15 | | 15 11:45 | | | (Comment | | at 1145, For 1 dose | | AM PDT | | | ) | + +-------+ +-------+---+ + +---+---+ | | | +---+---+ + +-------+ +-------+---+ + | sodium bicarbonate (NEUT) 4% | Given | 01/20/20 | 2 mLs | | Other | | injection 2 mL 2 mL, | | 15 11:45 | | | (Comment | | Infiltration, ONCE, Thu01/19/15 at | | AM PDT | | | ) | | 1145, For 1 dose, Use for | | | | | | | addition to other parenteral | | | | | | | solutions., | | | | | | + +-------+ +-------+---+ + +---+---+ | | | +---+---+ documented in this encounter"
--- OUTSIDE RECORDS SUMMARY | ~2019-10-17 | XMS | Encounter Summary ---
Demographics + + + | Address | [address] | | | [place] [address] | + + + | Home Phone [...] Team Providers + +------+ + | Care Assembly Line Upholsterer Name | Role | Phone | + [...] Description | +--------+--------+ + + + | 08/19/ | Refill | Kraig Turner | Beto Meeks MD | Refill Request | | 2010 | | [facility] | [address] | | | | | [facility] | [place], [place] | | | | | [address] | [address] | | | | | [address] | [phone] | | | | | Physician[facility] | | | | | | Pavilion, 1st floor | | | | | | [place], [place] | | | | | | [address] | | | | | | [phone] | | | +--------+--------+ + + + [...]
--- OUTSIDE RECORDS SUMMARY | ~2019-10-17 | XMS | Encounter Summary ---
Demographics + + + | Address | [address] | | | [place] [address] | + + + | Home Phone [...] Team Providers + +------+ + | Care Authorization Manager Name | Role | Phone | [...] | +--------+ + + + + | 07/05/ | Telephone | Kraig Turner | Beto Meeks MD | Lab Results | | 2013 | | [facility] | [address] | | | | | [facility] | [place], [place] | | | | | [address] | [address] | | | | | [address] | [phone] | | | | | [facility] | | | | | | [facility] | | | | | | Pavilion [place], | | | | | | [place] [address] | | | | | | [phone] | | | +--------+ + + + [...]
--- OUTSIDE RECORDS SUMMARY | ~2019-10-17 | XMS | Encounter Summary ---
Demographics + + + | Address | [address] | | | [place] [address] | + + + | Home Phone [...] Team Providers + +------+ + | Care Adobe Maker Name | Role | Phone | + +------+ + | Maria Esther Cintron MD | PCP | | + +------+ + Encounter Details +--------+ + + + + | Date | Type | Department | Care Team | Description | +--------+ + + + + | 08/24/ | Abstract | [facility] | Patricia Banegas, | | | 2011 | | [facility] [address] | [employer] [address] | | | | | [place] | , [address] | | | | | Mailcode: Center | [place], [place] | | | | | [facility] | [address] | | | | | Healing, [address] | [phone] | | | | | [place], [place] | | | | | | [address] | | | | | | [phone] | | | +--------+ + + + [...]
--- OUTSIDE RECORDS SUMMARY | ~2019-10-17 | XMS | Encounter Summary ---
Demographics + + + | Address | [address] | | | [place] [address] | + + + | Home Phone | | + + + | Preferred Language | Unknown | + + + | Marital Status | Single | + + + | Scientologist Affiliation | ADV | + + + [...] Team Providers + +------+ + | Care Hat Blocker Name | Role | Phone | + +------+ + | Pedrito Gutierrez MD | PCP | | + +------+ + Reason for Visit +--------+ + | Reason | Comments | +--------+ + | Pain | | +--------+ + Encounter Details +--------+---------+ + + + | Date | Type | Department | Care Team | Description | +--------+---------+ + + + | 06/22/ | Office | [facility] | Delfina Molina, | Herniated Lumbar | | 2006 | Visit | Pain Center at | ANP | [facility]bral [facility] | | | [facility] | | L4-5; Spondylosis | | | | [address] | | with Myelopathy, | | | | Mailcode: [id number] | | Lumbar Region; Left | | | [facility] | | Knee Pain; Right Hip | | | | and Healing, | | Region Pain; Opioid | | | | Building | | Dependence, | | | | Floor [place], [place] | | Continuous ([facility]); | | | | [address] | | Major Depressive | | | | [phone] | | Disorder, Recurrent | | | | | | Episode, Moderate | | | | | | ([facility]); Adjustment | | | | | | Disorder with | | | | | | Anxiety; | | | | | | Fibromyalgia | | | | | | syndrome 729.1; | | | | | | Muscle pain 729.1; | | | | | | Migraine Headache | +--------+---------+ + + + Social [...] + + + | Blood Pressure | 102/68 | 12/04/2006 7:43 AM | | | | | PDT | | + + + + + | Pulse | 74 | 12/04/2006 7:43 AM | | | | | PDT | | + + + + + | Temperature | 37.7 C (99.9 F) | 12/04/2006 7:43 AM | | | | | PDT | | + + + + + | Respiratory Rate | 16 | 12/04/2006 7:43 AM | | | | | PDT | | + + + + + | Oxygen Saturation | - | - | | + + + + + | Inhaled Oxygen | - | - | | | Concentration | | | | + + + + + | Weight | 87.7 kg (193 lb 4.8 | 12/04/2006 7:43 AM | | | | oz) | PDT | | + + + + + | Height | 175.3 cm (5' 9") | 12/04/2006 7:43 AM | | | | | PDT | | + + + + + | Body Mass Index | 28.55 | 12/04/2006 7:43 AM | | | | | PDT | | + + + + + documented in this encounter Patient Instructions Patient Instructions Delfina Molina - 12/04/2006 11:02 AM PDT1. Continue with PT locally i n the pool 2. Apply one fentanyl 25 mcg/hr patch to clean dry skin, between the breasts and shoulders (front or back, arms are OK), and hold in place for 2-3 minutes with your hand to maximize a dherence to your skin. After 72 hours, remove the patch, fold sticky side in, and flush nell n toilet (or dispose of securely). Then apply the next patch. Do not use any lotions, creams, or skin cleansers (aside from soap), such as alcohol, on sk in where patch is to be applied. If a patch begins to fall off before it is to be removed, you may use an occlusive dressing (such as Tegaderm - talk to your pharmacist about obtaining these) or tape that your skin c an tolerate to keep it on. DO NOT CUT OR DAMAGE THESE PATCHES BEFORE USING THEM! DO NOT APPLY DIRECT HEAT OR SOAK IN A HOT TUB WITH THESE ON! KEEP IN A LOCKED CUPBOARD, OUT OF THE REACH OF CHILDREN! Make sure you rotate the location of the patches, so you do not apply a patch to an area th at has had a patch within the previous 6 days. Apply the Tegaderm aqua patch over the fentanyl patch with each exchange. 3. Follow up in two weeks to review. 1 1:02 AM PDT documented in this encounter Progress Notes Delfina Molina - 12/04/2006 10:43 AM PDTFormatting of this note might be different from th e original. 12/04/2006 Belinda Meehan is a 46 y.o. female [facility] Return Visit Chief Complaint: Chief Complaint Patient presents with Pain History of Present Illness: Belinda Meehan is a 46 y.o. year-old female with a history of chronic pain due to degenerative spine and joints disease Belinda Meehan is here today for a follow up visit. Since prior visit this condition has not improved since Ms. Meehan's last visit. She does not have new pain complaints on thi s visit however she does report new intermittent numbness and tingling denies weakness in th e right LE. Belinda Meehan completed the Brief Pain Inventory and a pain drawing which I reviewed. Her current pain is 9/10. 0% relief since not having any pain medications the past she re prots running out of the fentanyl patch one week ago because she lost two patches with them "coming off". She is not sure why this is happening now. She deneis sweating however has st arted local aqua pool program referral of her orthopedist physician. She reports going to t he pool three times a week for the past two weeks. She denies going through any opioid withd jerel. The pain is worst in the left knee however since not having any fentanyl the shoulders and abdominal pain has returned. The pain is made better by opioid therapy, the joint pains a decreased since doing pool the rapy, heat and rest. The pain is made worse by weight bearing, walking, bending for the lower back and abdomen. New treatment since her last visit includes pool therapy . Mood and sleep: she reports her mood being stable, more irritable being off her pain mediat ions denies any signs of withdrawal the past week of Fentanyl patch and Newhall. Trileptal he lps with right leg pain and sleep. "been sleeping great". Expectations for this visit include : discussing the sticking problems with the fentanyl pa tc and her insurance not being willing prescribe Newhall. There have been no other change in past medical history, past surgical history, family hist ory, or social history since last visit. She has been evaluated by Orthopedist Dr. Helio Vasquez: recommendations include pool thera py Surgeryleft knee replacement planned for 2006. Current outpatient prescriptions Medication Sig Dispense Refill LEVOTHYROXINE OR takes .05mg daily Fentanyl 25 mcg/hr TD PT72 apply 1 patch (25mcg/h) by transdermal route every 72 hours 10 0 Hydrocodone-Acetaminophen (NORCO) 10-325 mg Oral TABS take 1 tablet by oral route every 4-6 hours as needed for pain NTE 3 per day 90 0 Oxcarbazepine (TRILEPTAL) 150 mg OR TABS tab [...] muscle pain, stiffness and swelling Gastrointestinal System: abdominal pain Genitourinary System: negative Nervous System: numbness and weakness Psychiatric History: decreased energy Physical examination: BP 102/68 | Pulse 74 | Temp (Src) 99.9 F (37.7 C) (Oral) | Resp 16 | Ht 1.753 m (5' 9") | Wt 87.680 kg (193 lbs 4.8 oz) Body mass index is 28.55 kg/(m^2). General appearance: Alert, in no acute distress, right antalgic gait, pleasant and cooperat gerda. Impression: 722.10H Herniated Lumbar Intervertebral Disc L4-5 721.42 Spondylosis with Myelopathy, Lumbar Region 719.46J Left Knee Pain 719.45F Right Hip Region Pain 304.01B Opioid Dependence, Continuous 296.32 Major Depressive Disorder, Recurrent Episode, Moderate 309.24 Adjustment Disorder with Anxiety 729.1 Fibromyalgia syndrome 729.1 729.1 Muscle pain 729.1 346.90D Migraine Headache Belinda had been doing so well with her pain management until she ran out of her fentanyl an d her insurance stopped coverage of Newhall. I believe doing pool therapy three times a week has been the cause of a breakdown in the adhesive intregrity of the fentanyl patch, trying an aqua covering is likely to resolve this issue allowing her to continue and benefit from what was for Belinda stable therapy. Belinda Meehan reports being compliant with all aspects of chronic opioid therapy , was u sing the medication as directed, demonstrated benefits, and has no serious adverse effects. There were no significant cognitive or mood impairments. There is no evidence of diversion past or present with Belinda however until clarified there is concern that her son might be d iverting or using her Newhall? Until I know more I will not be prescribing a breakthrough sina n medication but am willing to prescribe early for her fentanyl. I have asked Belinda to bulk picker and be responsible for her own medication bulk picker. I discussed with Tasha Nolasco CMA the issue of Insurance PA for Newhall this was in progress as of the time the patient was here. At the time I completed this note we had word that Ins urance would not approve coverage. I will discuss this with Belinda once I know her story o n where the dispensed #70 Newhall is. [ Tasha reported calling [employer] who reported: Belinda's s on picking up #20 then the remaining quantity #70 at another date.] Belinda said they only g ave her #17 and she has not seen the #70, she said she would ask her son about this. Recommendations/Plan: total 30 minute visit with greater than 50% spent in reviewing the progress notes, imaging and counselling/education of the patient. 1. Continue with PT locally in the pool and orthopedist plan for surgery. 2. Continue with Fentanyl 25mcg/hr Q72 patches [Rx for #5 given to Belinda today]. Apply one fentanyl 25 mcg/hr patch to clean dry skin, between the breasts and shoulders (fr ont or back, arms are OK), and hold in place for 2-3 minutes with your hand to maximize adhe rence to your skin. After 72 hours, remove the patch, fold sticky side in, and flush down t oilet (or dispose of securely). Then apply the next patch. Do not use any lotions, creams, or skin cleansers (aside from soap), such as alcohol, on sk in where patch is to be applied. If a patch begins to fall off before it is to be removed, you may use an occlusive dressing (such as Tegaderm - talk to your pharmacist about obtaining these) or tape that your skin c an tolerate to keep it on. DO NOT CUT OR DAMAGE THESE PATCHES BEFORE USING THEM! DO NOT APPLY DIRECT HEAT OR SOAK IN A HOT TUB WITH THESE ON! KEEP IN A LOCKED CUPBOARD, OUT OF THE REACH OF CHILDREN! Make sure you rotate the location of the patches, so you do not apply a patch to an area th at has had a patch within the previous 6 days. Apply the Tegaderm aqua patch over the fentanyl patch with each exchange. 3. Patient instructed to bulk picker and be responsible for her own medications. 4. Follow up in two weeks to review pain management. Once she is again stable on the fen tanyl patch I will transfer her prescribing to Dr. Gutierrez. She has completed the Multidisci plinary patient Care program here at the [facility]. DELFINA MOLINA [facility] Mail code CH 4P [facility] and [address] [address] Tasha Can - 12/04/2006 7:43 AM PDTCMA History: PMH/PSH/SH/FH review 1. Has [...] you require any medication refills today? Yes She did not get all of the norco fro m her last rx and is needing that. documented in this encounter Plan of Treatment Not on filedocumented as of this encounter Visit Diagnoses + + | Diagnosis | + + | Herniated Lumbar Intervertebral Disc L4-5 Displacement of lumbar intervertebral disc | | without myelopathy | + + | Spondylosis with myelopathy, lumbar region | + + | Left Knee Pain Pain in joint, lower leg | + + | Right Hip Region Pain Pain in joint, pelvic region and thigh | + + | Opioid dependence, continuous ([facility]) Opioid type dependence, continuous | + + | Major depressive disorder, recurrent episode, moderate (HCC) Major depressive | | disorder, recurrent episode, moderate | + + | Adjustment disorder with anxiety | + + | Fibromyalgia syndrome 729.1; Muscle pain 729.1 Mylagia and myositis, unspecified | + + | Migraine headache Migraine, unspecified, without mention of intractable migraine | | without mention of status migrainosus | + + documented in this encounter
--- OUTSIDE RECORDS SUMMARY | ~2019-10-17 | XMS | Encounter Summary ---
Demographics + + + | Address | [address] | | | [place] [address] [...] Team Providers + +------+ + | Care Aerial Survey Technician Name | Role | Phone | [...] + + + | Closed | | Urology | Diagnoses | Anika Padgett Uro | | | | | Urinary | MD Chris | General Chh1 | | | | | incontinence | [address] | [address] | | | | | Procedures | Jayce Hartley | Bethanie | | | | | CONSULT TO | Clementina Winkler | Mailcode: | | | | | SURGERY - | [place], [place] | [facility] [place] | | | | | UROLOGY | [address] | for Health | | | | | | Phone: | [address] [place], | | | | | | [phone] | [address], | | | | | | Fax: | [address]th Floor | | | | | | [phone] | [place], [place] | | | | | | | [address] | | | | | | | Phone: | | | | | | | [phone] | | | | | | | Fax: | | | | | | | [phone] | +--------+--------+ + + + + Reason for Visit + + + | Reason | Comments | + + + | Follow-up visit | | + + + Encounter Details +--------+---------+ + + + | Date | Type | Department | Care Team | Description | +--------+---------+ + + + | 10/29/ | Office | Digestive Health | Chris Padgett, | Urinary Incontinence | | 2006 | Visit | Center [address] | [address] | (Primary Dx); | | | | Bethanie Mailcode: CH4S | [address] | Status Post | | | | [facility] | [facility] [place] | Bariatric Surgery | | | | and Healing, | [address] | | | | | [facility] | [phone] | | | | | Floor [place], [place] | | | | | | [address] | | | | | | [phone] | | | +--------+---------+ + + + [...] + + + | Blood Pressure | 119/58 | 10/29/2006 12:59 PM | | | | | PDT | | + + + + + | Pulse | 69 | 10/29/2006 12:59 PM | | | | | PDT | | + + + + + | Temperature | 36.3 C (97.4 F) | 10/29/2006 12:59 PM | | | | | PDT | | + + + + + | Respiratory Rate | 16 | 10/29/2006 12:59 PM | | | | | PDT | | + + + + + | Oxygen Saturation | - | - | | + + + + + | Inhaled Oxygen | - | - | | | Concentration | | | | + + + + + | Weight | 93.8 kg (206 lb 14.4 | 10/29/2006 12:59 PM | | | | oz) | PDT | | + + + + + | Height | - | - | | + + + + + | Body Mass Index | 30.55 | 10/23/2006 12:38 PM | | | | | PDT | | + + + + + documented in this encounter Progress Notes Chris Padgett - 10/29/2006 2:13 PM Elli Meehan is a 46 y.o. Female who presents to [facility] following gastric bypass surgery. She is doing well currently. Her abdominal pain nguyen s resolved now that she has been seeing the pain clinic for her arthritis. She currently is on a fentanyl patch (25 mcg, every 72 hours). She continues to have arthritic pain. Other co-morbidities that were present before surgery have resolved including Asthma, High choles terol, HTN, heartburn and Sleep apnea. She does have some symptoms of urinary incontence inc luding retention and incontence with sneezing and coughing. Medications: Fentanyl 25 mcg 72 hours, [place]/JOJO 10 mg/325 mg PRN Q 6 hrs, Actonel 35 mg 1 / wk, Trileptal 100 mg BID, Promethazine 25 mg PRN Q 6hrs, Cyanocobal B-12 1000 mg 1 /month, Furosemide 80 mg Q am, Potassium Chloride 20 meq Q am, Multivitamin, Vit. C, Ca, Vit D. PE: BP 119/58 | Pulse 69 | Temp (Src) 97.4 F (36.3 C) (Oral) | Resp 16 | Wt 93.849 kg ( 206 lbs 14.4 oz) GEN: NAD, Pleasant HEENT: WNL CV: RRR no M/R/G Resp: CTAB Assessment: 46 yo female following gastric bypass who is doing well, and her abdominal pain is well controlled with 25 mcg of fentanyl prescribed for arthritic pain. Plan: Follow up in 3 months. Urology consult for urinary incontinence. documented in this enco unter Plan of Treatment Not on filedocumented as of this encounter Visit Diagnoses + + | Diagnosis | + + | Urinary incontinence - Primary Unspecified urinary incontinence | + + | Status post bariatric surgery Bariatric surgery status | + + documented in this encounter"
--- OUTSIDE RECORDS SUMMARY | ~2019-10-17 | XMS | Encounter Summary ---
Demographics + + + | Address | [address] | | | [place] [address] | + + + | Home Phone | | + + + | Preferred Language | Unknown | + + + | Marital Status | | + + + | Shinto Affiliation | 1001 | + + + | Race | Unknown | + + + | Ethnic Group | Unknown | + + + Author + + + | Author | [facility] | | | and Jairana | + + + | Organization | [facility] | | | [...] Team Providers + +------+ + | Care Shovel Handle Assembler Name | Role | Phone | [...] + + | 06/17/ | Telephone | [facility] | Alanis, | Referral | | 2019 | | MEDICINE [address] [place] [address] | MD [place] | | | | | [facility] | [address] [place] [address] | | | | | [place] [address] | [place] [address] | | | | | [phone] | [phone] | | | | | | | [...] | | | | | | [place] [address] | | | | | | [phone] | | | | | | | | +--------+---------+ + + + | 12/20/ | Office | Audiology | Elisabet Munson MS | | | 2019 | Visit | | [facility] [address] | | | | | | [place] [address] [place] | | | | | | [place] [address] | | | | | | [phone] | | | | | | | | +--------+---------+ + + + | 12/20/ | Office | Otolaryngology | Ulysses Genao MD | | | 2020 | Visit | | [address] [facility] | | | | | | [address] [place], | | | | | | [place] [address] | | | | | | [phone] | | | | | | | | +--------+---------+ + + + documented as of this encounter Visit Diagnoses Not on filedocumented in this encounter"
--- OUTSIDE RECORDS SUMMARY | ~2019-10-17 | XMS | Encounter Summary ---
Demographics + + + | Address | [address] | | | [place] [address] | + + + | Home Phone | | + + + | Preferred Language | Unknown | + + + | Marital Status | | + + + | Religion Affiliation | 1001 | + + + | Race | Unknown | + + + | Ethnic Group | Unknown | + + + Author + + + | Author | [facility] | | | and Jairana | + + + | Organization | [facility] | | [...] Providers + +------+ + | Care Transition Specialist Name | Role | Phone | [...] | | sciatica | [address] | [address] Phone: | | | | | | [place], | [phone] | | | | | | [place] | Fax: | | | | | | [address] | [phone] | | | | | | Phone: | | | | | | | [phone] | | | | | | | Fax: | | | | | | | [phone] | | +--------+ + + + + + Reason for Visit + + + | Reason | Comments | + + + | Medication Orders | | + + + Encounter Details +--------+ + + + + | Date | Type | Department | Care Team | Description | +--------+ + + + + | 07/15/ | Telephone | [facility] | Alanis, | Medication Orders | | 2018 | | MEDICINE [address] [place] [address] | MD [place] | | | | | [facility] | [address] [place] [address] | | | | | [place] [address] | [place] [address] | | | | | [phone] | [phone] | | | | | | | [...] | | | | | [address] [facility] | | | | | | [place] [address] | | | | | | [phone] | | | | | | | | +--------+---------+ + + + | 12/20/ | Office | Audiology | Elisabet Munson MS | | | 2019 | Visit | | [facility] [address] | | | | | | [address] | | | | | | [place] [address] | | | | | | [phone] | | | | | | | | +--------+---------+ + + + | 12/20/ | Office | Otolaryngology | Ulysses Genao MD | | | 2019 | Visit | | [address] [place] | | | | | | [address] [place], | | | | | | [place] [address] | | | | | | [phone] | | | | | | | | +--------+---------+ + + + + + +--------+ + + | Name | Type | Priori | Associated Diagnoses | Order Schedule | | | | ty | | | + + +--------+ + + | * [facility] [place] | Outpatient | Routin | Chronic [...]
--- OUTSIDE RECORDS SUMMARY | ~2019-10-17 | XMS | Encounter Summary ---
Demographics + + + | Address | [address] | | | [place] [address] | + + + | Home Phone [...] Providers + +------+ + | Care Supervisor Sign Shop Name | Role | Phone | + [...] [id number] | | | | | | [place], [place] | | | | | | [address] | | | | | | [phone] | | | +--------+ + + + [...]
--- OUTSIDE RECORDS SUMMARY | ~2019-10-17 | XMS | Encounter Summary ---
Demographics + + + | Address | [address] | | | [place] [address] | + + + | Home Phone [...] Providers + +------+ + | Care Health Actuary Name | Role | Phone | + [...] Description | +--------+---------+ + + + | 07/25/ | Office | Rheumatology at | Caitlin Rivera, | Fibromyalgia; Lumbar | | 2008 | Visit | [facility] [address] | EPIDEMIOLOGY INVESTIGATOR | Disc Disease; | | | | [address] | | Fibromyalgia | | | | Physician's | | | | | | Pavilion, 4th Floor | | | | | | [place], [place] | | | | | | [address] | | | | | | [phone] | | | +--------+---------+ + + + [...] + + + | Blood Pressure | 104/64 | 07/25/2008 8:20 AM | | | | | PST | | + + + + + | Pulse | 66 | 07/25/2008 8:20 AM | | | | | PST | | + + + + + | Temperature | - | - | | + + + + + | Respiratory Rate | - | - | | + + + + + | Oxygen Saturation | 97% | 07/25/2008 8:20 AM | | | | | PST | | + + + + + | Inhaled Oxygen | - | - | | | Concentration | | | | + + + + + | Weight | 88.5 kg (195 lb) | 07/25/2008 8:20 AM | | | | | PST | | + + + + + | Height | - | - | | + + + + + | Body Mass Index | 28.8 | 07/24/2008 3:09 PM | | | | | PST | | + + + + + documented in this encounter Progress Notes Caitlin Rivera FNP - 07/25/2008 5:59 PM PSTFormatting of this note might be different fro m the original. Subjective: I periodically see Belinda Meehan for Fibromyalgia. She had low back disc s urgery with pins and fixation 6 weeks ago. She could not be specific exactly which discs or procedure was done, but thinsk it was L4-5 and L5/S1 discs. She has had good results, the le g numbness is gone and much of the LBP is gone. Dr. Ricky smith Callahan was her surgeon. She think s a few TP inj would be useful today. She has sharp right occiput pain with neck extension. Knees are quite painful today- perhaps due to the cold. Mood: good Pain: 01/22 Fatigue: 12/22 Current outpatient prescriptions prior to encounter Medication Sig Dispense Refill amitriptyline 25 mg Oral Tablet Take 25 mg by mouth. Take 2 tablets at bedtime aspirin chewable (BABY ASPIRIN) 81 mg Oral Tablet, Chewable 2 daily buPROPion XL (WELLBUTRIN XL) 300 mg Oral Tablet Sustained Release 24 hr take 1 tablet ( 300 mg) by oral route once daily smlayaesga-brkrbvostlhae-rgllvkun (FIORICET) 50-325-40 mg Oral Tablet take 2 [...] 1 ta blet by mouth twice daily Oxycodone HCl 5 mg Oral Tablet take 2 tablets (10 mg) by oral route every 4-6 hours as needed for pain PERCOCET 5-325 mg Oral Tablet Take 1 Tab by mouth every four hours as needed Not to exc eed 12 tablets per any 24 hour period. POTASSIUM CHLORIDE SR 20 MEQ TAB, PARTICLES/CRYSTALS take 1 tablet (20meq) by oral rout e once daily with food promethazine 25 mg Oral Tablet as needed [...] MG CHEWABLE TAB four times a day Physical Exam: BP 104/64 | Pulse 66 | Wt 88.451 kg (195 lb) | SpO2 97% We looked at her cervical MRI together. See MRI results attached below. See comment in #2. Very tender MFTP's bilat trap and infraspinatus. Encounter Diagnoses Code Name Primary? Qualifier 729.1AV Fibromyalgia Comment: Craniocervical junction appears stenotic in cervical extension. 722.93E Lumbar Disc Disease Comment: Discectomy fusion May 22. Impression and Plan: 1. All the trigger points listed in the objective section were injected using 0.5% procaine for a total of 4 cc's. The injections were well tolerated, muscles softened and after care instructions were given. 2. Perhpas what appears to be mild impingement of the upper part of the cord in extension a t the craniocervical junction could explain the sharp right post head pain she gets when sh e extends her head. CSF flow does look slow in extension (appears dark distal to the CC junc tion).The radiologist did not note any abnormality, but compared to most MRI's I see, this a manisha looks stenotic in extension. I gave her sagital pictures, perhaps Dr. García will have th roughts. I do not think any kind of surgery there would be in her best interest. I do think PT to strengthen the deep potural muscles with developing an awareness of staying out of any kind of neck extension would be helpful. 3.rtc 4 mo Radiologist 1: JALIL CROWE M.D. EXAM: MRI [...] arthrosis primarily at C3-4, C4-5, and C5-6. documented in this en counter Plan of Treatment + + +--------+ + + | Name | Type | Priori | Associated Diagnoses | Order Schedule | | | | ty | | | + + +--------+ + + | AK INJECT TRIGGER | Procedures | Routin | Fibromyalgia | Ordered: 07/25/2008 | | POINT, 1 OR 2 | | e | | | + + +--------+ + + documented as of this encounter Procedures + +--------+ + + + | Procedure Name | Priori | Date/Time | Associated Diagnosis | Comments | | | ty | | | | + +--------+ + + + | LAB REPORTS | | 07/28/2008 | | Results for this | | | | 12:00 AM | | procedure are in the | | | | PST | | results section. | + +--------+ + + + documented in this encounter Results LAB REPORTS (07/28/2008 12:00 AM PST) + + + | Narrative | Performed At | + + + | | | + + + + + | Procedure Note | + + | Vilma Gibbons - 07/28/2008 12:00 AM PST | + + documented in this encounter Visit Diagnoses + + | Diagnosis | + + | Fibromyalgia Mylagia and myositis, unspecified | + + | Lumbar disc disease Other and unspecified disc disorder of lumbar region | + + documented in this encounter"
--- OUTSIDE RECORDS SUMMARY | ~2019-10-17 | XMS | Encounter Summary ---
Demographics + + + | Address | [address] | | | [place] [address] | + + + | Home Phone [...] Team Providers + +------+ + | Care Associate Professor Physician Name | Role | Phone | [...] Description | +--------+--------+ + + + | 12/22/ | Refill | [facility] | PetraLoue, [...] [address] | | | | | | [place], [place] | | | | | | [address] | | | | | | [phone] | | | +--------+--------+ + + + [...]
--- OUTSIDE RECORDS SUMMARY | ~2019-10-17 | XMS | Encounter Summary ---
Demographics + + + | Address | [address] | | | [place] [address] | + + + | Home Phone [...] Team Providers + +------+ + | Care Diamond Setter Name | Role | Phone | [...]
--- OUTSIDE RECORDS SUMMARY | ~2019-10-17 | XMS | Encounter Summary ---
Demographics + + + | Address | [address] | | | [place] [address] | + + + | Home Phone [...] Team Providers + +------+ + | Care Mural Painter Name | Role | Phone | + +------+ + | Pedrito Gutierrez MD | PCP | | + +------+ + Encounter Details +--------+ + + + + | Date | Type | Department | Care Team | Description | +--------+ + + + + | 07/31/ | Telephone | [facility] | Miranda [...] [address] | | | | | | [place], [place] | | | | | | [address] | | | | | | [phone] | | | +--------+ + + + [...]
--- OUTSIDE RECORDS SUMMARY | ~2019-10-17 | XMS | Encounter Summary ---
Demographics + + + | Address | [address] | | | [place] [address] | + + + | Home Phone [...] Team Providers + +------+ + | Care Inorganic Chemistry Teacher Name | Role | Phone | [...] | Pain | Diagnoses | Miracle, | [place], | | | | Management | LBP (low | NIHARIKA Jean | Lukasz Rhodes, PhD | | | | | back pain) | [address] | [address] | | | | | DJD | [address] | Ave | | | | | (degenerativ | [place], [place] | [place] | | | | | e joint | [address] | [address] | | | | | disease) of | | Phone: | | | | | knee Knee | | [phone] | | | | | pain Major | | Fax: | | | | | depressive | | [phone] | | | | | disorder, | [...] Description | +--------+---------+ + + + | 11/23/ | Office | [facility] at [facility] | Lukasz Charles, | Major Depressive | | 2007 | Visit | [address] | PhD [address] | Disorder, Recurrent | | | | Mailcode: 15P | [place], [place] | Episode, Moderate | | | | [place] [facility] | [address] | ([facility]); LBP (Low Back | | | | and Healing, | [phone] | Pain); Bilateral | | | | | | Knee Pain; | | | | Floor [place], [place] | | Adjustment Disorder | | | | [address] | | with Anxiety | | | | [phone] | | | +--------+---------+ + + + [...] this encounter Progress Notes Lukasz Charles - 11/24/2007 9:00 AM PDTPROGRESS NOTE: Belinda Meehan is a 47 y.o. female with head, abdominal, back, and leg pain. She had her other knee replaced and is doing well with that. She has been struggling with abdominal pa in and is being seen tomorrow to decide if she needs surgery. She has been sedentary lately and has been spending most of her time at home. She has been depressed by the weather and her abdominal pain. She reported that she had respiratory depression after her knee surgery and had to be resuscitated. We discussed finding meaningful things to fill her time and di scussed finding things that are not dependent upon the weather. Ms. Meehan has ongoing depression and frustration. She is not suicidal. She is strugglin g with the abdominal pain and she is frustrated by the bad weather. She responds to frustra tion by being less active. Diagnosis: Model I: 1. (296.32) Major depressive disorder, recurrent, moderate. 2. (309.24) Adjustment disorder with anxiety. 3. 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 Model II: Deferred Model III: abdominal pain, migraine headache, low back pain. Model IV: low finances Model V: GAF 55-60 Plan: return with next medical follow-up appointment. Check mood, abdominal pain, relaxat ion, activity, distraction. Continue cognitive/behavioral therapy. Total time spent with patient was approximately 45 minutes. LUKASZ CHARLES [facility] [address] [facility], [address] [address] documented in this encount er Plan of Treatment + + +--------+ + + | Name | Type | Priori | Associated Diagnoses | Order Schedule | | | | ty | | | + + +--------+ + + | [facility], | Procedures | Routin | Major Depressive | Ordered: 11/24/2007 | | OFFICE (45-50) | | e [...] joint, lower leg | + + | Adjustment disorder with anxiety | + + documented in this encounter"
--- OUTSIDE RECORDS SUMMARY | ~2019-10-17 | XMS | Encounter Summary ---
Demographics + + + | Address | [address] | | | [place] [address] | + + + | Home Phone [...] Team Providers + +------+ + | Care Chipper Operator Name | Role | Phone | [...] + + | 05/30/ | Refill | [facility] | Alanis, | Medication Refill | | 2016 | | MEDICINE [address] [place] [address] | MD [place] | | | | | [facility] | [address] [place] [address] | | | | | [place] [address] | [place] [address] | | | | | [phone] | [phone] | | | | | | | [...] | | | | | | [place] [address] | | | | | | [phone] | | | | | | | | +--------+---------+ + + + | 12/20/ | Office | Audiology | Elisabet Munson MS | | | 2019 | Visit | | [facility] [address] | | | | | | [place] [address] [place] | | | | | | [place] [address] | | | | | | [phone] | | | | | | | | +--------+---------+ + + + | 12/20/ | Office | Otolaryngology | Ulysses Genao MD | | | 2020 | Visit | | [address] [facility] | | | | | | [address] [place], | | | | | | [place] [address] | | | | | | [phone] | | | | | | | | +--------+---------+ + + + documented as of this encounter Visit Diagnoses Not on filedocumented in this encounter"
--- OUTSIDE RECORDS SUMMARY | ~2019-10-17 | XMS | Encounter Summary ---
Demographics + + + | Address | [address] | | | [place] [address] | + + + | Home Phone | | + + + | Preferred Language | Unknown | + + + | Marital Status | | + + + | Catholic Affiliation | 1001 | + + + | Race | Unknown | + + + | Ethnic Group | Unknown | + + + Author + + + | Author | [facility] | | | and Jairana | + + + | Organization | [facility] | | | [...] Team Providers + +------+ + | Care Body Recall Instructor Name | Role | Phone | [...] | | Osteoporosis | i, | [address] | | | | | , | [place] | [place], | | | | | unspecified | , [place] [address] | [place] [address] | | | | | osteoporosis | [address] | Phone: | | | | | type, | [place], | [phone] | | | | | unspecified | [place] | Fax: | | | | | pathological | [address] | [phone] | | | | | fracture | Phone: | | | | | | presence | [phone] | | | | | | Procedures | Fax: | | | | | | [place] | [phone] | | | | | | ZOLEDRONIC | | | | | | | ACID 1MG | | | +--------+ + + + + + Encounter Details +--------+ + + + + | Date | Type | Department | Care Team | Description | +--------+ + + + + | 07/20/ | Orders Only | [facility] | Alanis, | Osteoporosis, | | 2018 | | MEDICINE [address] [place] [address] | MD [place]rona | unspecified | | | | [facility] | [address] [place] [address] | osteoporosis type, | | | | [place] [address] | [place] [address] | unspecified | | | | [phone] | [phone] | pathological | | | | | | fracture presence | | | | | | (Primary [...] | | | | | | [place] [address] | | | | | | [phone] | | | | | | | | +--------+---------+ + + + | 12/20/ | Office | Audiology | Elisabet Munson MS | | 2019 | Visit | | [facility] | | | | | | [address] [place] [address] [place] | | | | | | [place] [address] | | | | | | [phone] | | | | | | | | +--------+---------+ + + + | 12/20/ | Office | Otolaryngology | Ulysses Genao MD | | | 2020 | Visit | | [address] [facility] | | | | | | [address] [place], | | | | | | [place] [address] | | | | | | [phone] | | | | | | | | +--------+---------+ + + + + + +--------+ + + | Name | Type | Priori | Associated Diagnoses | Order Schedule | | | | ty | | | + + +--------+ + + | * [facility] - | Outpatient | Routin | Osteoporosis, | Ordered: 07/20/2017 | | AMB Referral | Referral | e | unspecified | | | | | | osteoporosis type, | | | | | | unspecified | | | | | | pathological | | | | | | fracture presence | | + + +--------+ + + documented as of this encounter Visit Diagnoses + + | Diagnosis | + + | Osteoporosis, unspecified osteoporosis type, unspecified pathological fracture | | presence - Primary | + + documented in this encounter"
--- OUTSIDE RECORDS SUMMARY | ~2019-10-17 | XMS | Encounter Summary ---
Demographics + + + | Address | [address] | | | [place] [address] | + + + | Home Phone [...] Providers + +------+ + | Care Operations Manager Assistant Name | Role | Phone | + +------+ + | Pedrito Gutierrez MD | PCP | | + +------+ + Encounter Details +--------+---------+ + + + | Date | Type | Department | Care Team | Description | +--------+---------+ + + + | 01/29/ | Office | Orthopaedics at | Hai Hoyos, | Other Specified | | 2008 | Visit | [facility] [address] | | Pre-Operative | | | | [address] | | Examination (Primary | | | | Mailcode: [id number] | | Dx) | | | | [facility] | | | | | | [place], [place] | | | | | | [address] | | | | | | [phone] | | | +--------+---------+ + + + [...] + + documented as of this encounter Patient Instructions Patient Instructions Madiha Batista - 01/04/2009 9:31 AM PDTRegistration Locations (please check in at one of the following registration desks prior to surgery) For surgeries scheduled to take place on the hill at the [facility]: Surgeries scheduled in the [facility]): registration is located on the 4th floor of [facility] (Day Surgery). Surgeries scheduled in the [facility]: registration is located on the 9th floor. Surgeries scheduled in [facility]: registration is located on the 6th floor. Surgeries scheduled in the [facility]: registration is located i n the [facility] on the first floor. For surgeries scheduled to take place at the [facility]: registration is l ocated on the 4th floor (Surgery Center). Important Information Due to the increased prevalence of pests in our community, we are asking patients to partne r with us to keep our hospital clean. If you have noticed bugs or other pests in your home, on your belongings or on your body, please contact your doctor's office prior to your admis ana laura. For your safety and protection, please limit what you bring to the hospital. All valuables should be left at home. This includes pillows, blankets, clothing, purses, wallets, money an d jewelry. Patients may not bring personal electronics into the hospital, including hairdry ers, electric jesus, radios and CD players. If you use specialized medical equipment at [facility], please check with your provider before bringing it with you into the hospital. Registration Process for all Admissions/Surgeries Please bring your insurance card(s) with you and be prepared to pay any co-payment, co-insu ladarius or deposit that may be required. Once you arrive at the registration desk, you will be interviewed by a Patient Access Servi ce Specialist (SYLVIA). Demographics will be verified (example: name, date of , Social Se curity Number, address, insurance). You will be asked to sign some paperwork: Terms and Conditions of Service, Notice of Privac y Practices Acknowledgement and Genetic Testing Opt Out. You will be given some paperwork: copies of any forms signed by you, Patient Rights, Respon sibilities and Safety, Understanding Advance Directives, and Smoking Cessation Brochure.Elec tronically signed by Madiha Batista at 01/04/2009 9:31 AM PDT documented in this encounter Progress Notes Hai Hoyos MD - 01/30/2009 9:46 AM PDTcancelled documented in this encounter Plan of Treatment Not on filedocumented as of this encounter Visit Diagnoses + + | Diagnosis | + + | Other specified pre-operative examination - Primary | + + documented in this encounter"
--- OUTSIDE RECORDS SUMMARY | ~2019-10-17 | XMS | Encounter Summary ---
Demographics + + + | Address | [address] | | | [place] [address] | + + + | Home Phone | | + + + | Preferred Language | Unknown | + + + | Marital Status | | + + + | Yazidi Affiliation | 1001 | + + + [...] Team Providers + +------+ + | Care Cook Seafood Name | Role | Phone | + [...] | | | | [address] | [address] | | | | | | [place], | Phone: | | | | | | [place] | [phone] | | | | | | [address] | | | | | | | Phone: | | | | | | | [phone] | | | | | | | Fax: | | | | | | | [phone] | | +--------+ + + + + + Encounter Details +--------+ + + + + | Date | Type | Department | Care Team | Description | +--------+ + + + + | 06/18/ | Orders Only | [facility] [place] [facility] | Alanis, | Multiple food | | 2019 | | MEDICINE [address] | MD [place] | allergies (Primary | | | | [address] [place] | [address] [place] | Dx) | | | | [place] [address] | [place] [address] | | | | | [phone] | [phone] | | | | | | | [...] | | | | | [place] [address] | | | | | | [phone] | | | | | | | | +--------+---------+ + + + | 12/20/ | Office | Audiology | Elisabet Munson MS | | | 2019 | Visit | | [facility] [address] | | | | | [address] [place] [address] [place] | | | | | | [place] [address] | | | | | | [phone] | | | | | | | | +--------+---------+ + + + | 12/20/ | Office | Otolaryngology | Ulysses Genao MD | | | 2019 | Visit | | [address] [place] | | | | | | [address] [place], | | | | | | [place] [address] | | | | | | [phone] | | | | | | | | +--------+---------+ + + + + + +--------+ + + | Name | Type | Priori | Associated Diagnoses | Order Schedule | | | | ty | | | + + +--------+ + + | [place] | Outpatient | Routin | Multiple food [...]
--- OUTSIDE RECORDS SUMMARY | ~2019-10-17 | XMS | Encounter Summary ---
Demographics + + + | Address | [address] | | | [place] [address] | + + + | Home Phone [...] Providers + +------+ + | Care Automatic Gluing Machine Operator Name | Role | Phone | + +------+ + | [place] Thapa | PCP | | | MD | | | + +------+ + Encounter Details +--------+ + + + + | Date | Type | Department | Care Team | Description | +--------+ + + + + | 09/22/ | Abstract | [facility] [place] | Ulysses Genao MD | | | 2014 | | GASTROENTEROLOGY | [address] [place] | | | | | [address] | [address] [place], | | | | | [address] [place], [place] | [place] [address] | | | | | [address] | [phone] | | | | | [phone] | | | +--------+ + + + + Social History + + + +--------+------+ | Tobacco Use | Types | Packs/Day | Years | Date | | | | | Used | | + + + +--------+------+ | Current Every Day | Cigarettes | 0.5 | 30 | | | Smoker | | | | | + + + +--------+------+ + +---+---+---+ | Smokeless Tobacco: | | | | | Never Used | | | | + +---+---+---+ + + +---------+ + | Alcohol Use [...] Internal Medicine | Alanis, | | | 2020 | Visit | | MD [place] | | | | | | [address] [place] | | | | | | [place] [address] | | | | | | [phone] | | | | | | | | +--------+---------+ + + + | 12/20/ | Office | Audiology | Elisabet Munson MS | | | 2019 | Visit | | [facility] [address] | | | | | [address] [place] | | | | | | [place] [address] | | | | | | [phone] | | | | | | | | +--------+---------+ + + + | 12/20/ | Office | Otolaryngology | Ulysses Genao MD | | | 2019 | Visit | | [address] | | | | | | [address] [place], | | | | | | [place] [address] | | | | | | [phone] | | | | | | | | +--------+---------+ + + + documented as of this encounter Visit Diagnoses Not on filedocumented in this encounter"
--- OUTSIDE RECORDS SUMMARY | ~2019-10-17 | XMS | Encounter Summary ---
Demographics + + + | Address | [address] | | | [place] [address] | + + + | Home Phone [...] Team Providers + +------+ + | Care Fine Arts Instructor Name | Role | Phone | [...] + | 06/30/ | Refill | [facility] | Alanis, | Medication Refill | | 2017 | | MEDICINE [address] [place] [address] | MD [place] | | | | | [facility] | [address] [place] [address] | | | | | [place] [address] | [place] [address] | | | | | [phone] | [phone] | | | | | | | [...] | | | | | | [place] [address] | | | | | | [phone] | | | | | | | | +--------+---------+ + + + | 12/20/ | Office | Audiology | Elisabet Munson MS | | | 2019 | Visit | | [facility] [address] | | | | | | [place] [address] [place] | | | | | | [place] [address] | | | | | | [phone] | | | | | | | | +--------+---------+ + + + | 12/20/ | Office | Otolaryngology | Ulysses Genao MD | | | 2020 | Visit | | [address] [facility] | | | | | | [address] [place], | | | | | | [place] [address] | | | | | | [phone] | | | | | | | | +--------+---------+ + + + documented as of this encounter Visit Diagnoses Not on filedocumented in this encounter"
--- OUTSIDE RECORDS SUMMARY | ~2019-10-17 | XMS | Encounter Summary ---
Demographics + + + | Address | [address] | | | [place] [address] | + + + | Home Phone [...] Team Providers + +------+ + | Care Pharmacy Manager Name | Role | Phone | [...] | | | [facility] | [place], [place] | | | | | [address] | [address] | | | | | [address] | [phone] | | | | | Physician's | | | | | | Pavilion, [facility] floor | | | | | | [place], [place] | | | | | | [address] | | | | | | [phone] | | | +--------+ + + + [...] | | | | | performed at [facility] | | | | | | [facility] | | | | | | Laboratory | | | | + + + + + + + + | Specimen | + + | | + + + + + + + | Performing | Address | City/State/Zipcode | Phone Number | | Organization | | | | + + + + + | [facility] | [address] | [place] [address] | | | LABORATORY | | | [...] + + | [facility] | [address] | [place] [address] | | | LABORATORY | | | [...] | [facility] | | | | | [facility] | | | | | | Laboratories. | | | | + + + + + + + + | Specimen | + + | | + + + + + + + | Performing | Address | City/State/Zipcode | Phone Number | | Organization | | | | + + + + + | [facility] | [address] | [place] [address] | | | LABORATORY | | | [...] | | | SERUM | performed by [facility] | | | | | | [facility] | | | | | | Laboratories. | | | | + + + + + + + + | Specimen | + + | | + + + + + + + | Performing | Address | City/State/Zipcode | Phone Number | | Organization | | | | + + + + + | [facility] | [address] | [place] [address] | | | LABORATORY | | | [...] [place] DEPARTMENT OF | [address] [facility] | [place] [address] | | | PATHOLOGY | [address] | | | + + + + + | [place] DEPARTMENT OF | [address] [facility] | [place] [address] | | | PATHOLOGY | [address] [...] + + + + | [facility] | [facility] | [place] [address] | | | PATHOLOGY | [address] | | | + + + + + | [facility] | [facility] | [place] [address] | | | PATHOLOGY | [address] | | | + + + + + documented in this encounter Visit Diagnoses Not on filedocumented in this encounter"
--- OUTSIDE RECORDS SUMMARY | ~2019-10-17 | XMS | Encounter Summary ---
Demographics + + + | Address | [address] | | | [place] [address] | + + + | Home Phone [...] Team Providers + +------+ + | Care Blood Bank Technologist Name | Role | Phone | [...] | +--------+ + + + + | 01/26/ | Telephone | [facility] | Miranda [...] [id number] | | | | | | [place], [place] | | | | | | [address] | | | | | | [phone] | | | +--------+ + + + [...]
--- OUTSIDE RECORDS SUMMARY | ~2019-10-17 | XMS | Encounter Summary ---
Demographics + + + | Address | [address] | | | [place] [address] | + + + | Home Phone [...] Team Providers + +------+ + | Care Tower Crane Operator Name | Role | Phone | + +------+ + PCP | Unavailable | + +------+ + Encounter Details +--------+ + + + + | Date | Type | Department | Care Team | Description | +--------+ + + + + | 07/29/ | Office | [facility] | [...] as of this encounter Progress Notes Interface, Cod Clerk In - 08/19/2005 2:05 AM PST [id number] [facility] Date: 07/29/2005 Clinic: Hematology Clinic Problem List: Bruising. Subjective: Ms. Meehan' laboratories are; ferritin is only 11. Her CBC was normal. PT/INR was normal. Von Willebrand's activity was 256%, her factor VIII activity 275%, and von Willebrand's antigen 164%. Impression: Bleeding and bruising. In reviewing Ms. Meehan' labs, I believe that her labs do rule out a significant bleeding diathesis. I suspect that her bruising is multifactorial; one is that she is iron deficient and it has been observed that women who are iron deficient can have increased bruising. Secondly, from the pattern of her bruising, I would be suspicious of restless leg syndrome. This also can be associated with iron deficiency. Thirdly, her aspirin may aggravate this. However, given that she has tolerated invasive procedures very well, my only recommendation would be to pursue aggressive iron supplementation. Lukasz Sellers M.D. distribution field engineer [employer] / SHARIF [id number] / [id number] / [id number] / [id number] cc: Pedrito Gutierrez M.D. [address] [place] [address] Electronically signed by Lukasz Sellers 08-18-2005 01:28:12 PM documented i n this encounter Plan of Treatment Not on filedocumented as of this encounter Visit Diagnoses Not on filedocumented in this encounter"
--- OUTSIDE RECORDS SUMMARY | ~2019-10-17 | XMS | Encounter Summary ---
Demographics + + + | Address | [address] | | | [place] [address] | + + + | Home Phone [...] Team Providers + +------+ + | Care Cleaning Technician Name | Role | Phone | + +------+ + PCP | Unavailable | + +------+ + Encounter Details +--------+ + + + + | Date | Type | Department | Care Team | Description | +--------+ + + + + | 11/18/ | Office | [facility] | Clinic, [...] as of this encounter Progress Notes Interface, Unstacker In - 01/12/2005 6:20 AM PDT [id number] [facility] Date: 11/18/2004 Clinic: General Surgery Clinic Subjective: Ms. Meehan is a 43-year-old woman who is 1 year out from a laparoscopic gastric bypass. She has had a 145 pound weight loss and has redundant skin in her lower abdomen as well as her pubis, upper bilateral forearms and bilateral upper thighs. She has been followed for metabolic syndrome with Dr. Meeks and laboratory values have been done every 2 to 3 months. Her next appointment with Dr. Meeks is on January 02, 2005. The patient states that she has had a compression fracture in 3 areas of thoracic 7, 8, 9 area and had a brace 6 months ago. She has been followed by her primary care physician Dr. Gutierrez for anemia. She has had rashes in her groin area and as well as low back pain and is requesting information for panniculectomy as she is now 1 year out. Her starting weight was 320 pounds. Medications: 1. Ranitidine 150 mg b.i.d. 2. Wellbutrin 150 mg b.i.d. 3. Vitamin B12 1000 mg as deep subcutaneous 2 times per month. 4. Phenergan suppository 25 mg on every 6 hours p.r.n. 5. Darvocet-N 100, 650 mg 1or 2 every 4 to 6 hours as needed. 6. Aspirin 81mg daily. 7. Multivitamin 2 per day. 8. Magnesium 2 per day. 9. Vitamin E 400 IU 2 per day. 10. Calcium and vitamin D 600 mg 4 per day. Allergies: PENICILLIN, KEFLEX, CLINDAMYCIN, CODEINE, SULFA AND SULPHUR, ERYTHROMYCIN, CIPROFLOXACIN. Objective: General: She is a well-developed woman in no apparent distress. Vital Signs: Her current weight is 181.6 pounds, blood pressure 106/76, apical 82, respirations 16. Lungs: Clear to auscultation bilaterally. Heart: Regular rate and rhythm without murmur, rub, or gallop. Abdomen: Multiple redundant skin folds in lower abdomen and the pannus area. Skin: Redundant skin in thigh folds as well as forearms approximately 2 inches in each area. The patient has some evidence of panniculitis in her right groin with intertriginous yeast. Assessment : The patient to send pictures to our financial administrator and cutter gas for evaluation for medicare for panniculectomy. Described to patient what the photos should show. Dr. Gutierrez will provide further support, joint related issues with the heavy skin changes. Plan: 1. The patient notes improvement in arthritis, resolution from weight loss of asthma, type 2 diabetes, GERD, hypertension, and sleep apnea. 2. We will start inquiry into panniculectomy. The patient to return to talk with Dr. Padgett about the surgery when did the schedule done. She does live many hours away, and we will seek authorization for panniculectomy. Melisa Thorne / SHARIF [id number] / [id number] / [id number] / [id number] cc: Chris Padgett M.D. Joanna Valdez MD [facility] [address] [place] [address] Electronically signed by Kenisha Melton 11-26-2004 05:00:55 PM documented i n this encounter Plan of Treatment Not on filedocumented as of this encounter Visit Diagnoses Not on filedocumented in this encounter"
--- OUTSIDE RECORDS SUMMARY | ~2019-10-17 | XMS | Encounter Summary ---
Demographics + + + | Address | [address] | | | [place] [address] | + + + | Home Phone [...] Team Providers + +------+ + | Care Chassis Inspector Name | Role | Phone | [...] [address] | | | | | [place], [place] | [place], [place] | | | | | [address] | [address] | | | | | [phone] | [phone] | | | | | | | [...]
--- OUTSIDE RECORDS SUMMARY | ~2019-10-17 | XMS | Encounter Summary ---
Demographics + + + | Address | [address] | | | [place] [address] | + + + | Home Phone [...] Team Providers + +------+ + | Care Conventions Assistant Name | Role | Phone | [...] as of this encounter Progress Notes Interface, Rotor Casting Machine Setup Operator In - 01/12/2005 10:09 AM PDT [id number] [facility] Date: 12/19/2004 Clinic: General [...] as vitamin B12. Melisa Thorne / SHARIF [id number] / [id number] / [id number] / [id number] cc: Pedrito Gutierrez M.D. [address] [address] FAX: [phone] Chris Padgett M.D. General Surgery, [facility] Electronically signed by Kenisha Melton 12-25-2004 04:28:39 PM documented i n this encounter Plan of Treatment Not on filedocumented as of this encounter Visit Diagnoses Not on filedocumented in this encounter"
--- OUTSIDE RECORDS SUMMARY | ~2019-10-17 | XMS | Encounter Summary ---
Demographics + + + | Address | [address] | | | [place] [address] | + + + | Home Phone [...] Team Providers + +------+ + | Care Raftsman Name | Role | Phone | + [...] + + | 07/27/ | Telephone | [facility] | Alanis, | Other | | 2020 | | MEDICINE [address] [place] [address] | MD [place] | | | | | [facility] | [address] [place] [address] | | | | | [place] [address] | [place] [address] | | | | | [phone] | [phone] | | | | | | | [...] | | [facility] [address] [place] | | | | | | [place] [address] | | | | | | [phone] | | | | | | | | +--------+---------+ + + + | 12/20/ | Office | Audiology | Elisabet Munson MS | | | 2019 | Visit | | [facility] [address] | | | | | | [place] [address] [address] | | | | | | [place] [address] | | | | | | [phone] | | | | | | | | +--------+---------+ + + + | 12/20/ | Office | Otolaryngology | Ulysses Genao MD | | | 2019 | Visit | | [address] [facility] | | | | | | [address] [place], | | | | | | [place] [address] | | | | | | [phone] | | | | | | | | +--------+---------+ + + + documented as of this encounter Visit Diagnoses Not on filedocumented in this encounter"
--- OUTSIDE RECORDS SUMMARY | ~2019-10-17 | XMS | Encounter Summary ---
Demographics + + + | Address | [address] | | | [place] [address] | + + + | Home Phone [...] + + + | Author | [facility] | + + + | Organization | [facility] | + + + [...] Team Providers + +------+ + | Care Attendant Child Activity Name | Role | Phone | + [...] | and counseling | | | | [facility] | [place], [place] | (08/28/08 Lab | | | | and Healing, | [address] | results) | | | | [place] [address] [facility] | [phone] | | | | | [place], [place] | | | | | | [address] | | | | | | [phone] | | | +--------+ + + + [...]
--- OUTSIDE RECORDS SUMMARY | ~2019-10-17 | XMS | Encounter Summary ---
Demographics + + + | Address | [address] | | | [place] [address] | + + + | Home Phone [...] Team Providers + +------+ + | Care Materials Coordinator Name | Role | Phone | [...] | Neurology | Diagnoses | Miracle, | Grady, | | | | | Migraine | NIHARIKA Jean | Merari Lopez MD | | | | | headache | [address] | | | | | | Procedures | Mychal Kovacs | | | | | | CONSULT TO | [place], [place] | | | | | | NEUROLOGY | [address] | | +--------+--------+ + + + + Reason for Visit +--------+ + | Reason | Comments | +--------+ + | Pain | low back RLE | +--------+ + Encounter Details +--------+---------+ + + + | Date | Type | Department | Care Team | Description | +--------+---------+ + + + | 10/23/ | Office | [facility] | Delfina Molina, | Left Knee Pain | | 2006 | Visit | [facility] Center at | ANP | (Primary Dx); | | [facility] | | Migraine Headache; | | | | [address] | | Opioid Dependence, | | | | Mailcode: [id number] | | Continuous (HCC); | | [facility] | | Neck Pain; Right | | | | and Healing, | | shoulder rotator | | | | Building | | cuff strain; | | | | Floor [facility] [place] | | Spondylosis with | | | | [address] | | Myelopathy, Lumbar | | | | [phone] | | Region; Herniated | | | | | | Lumbar | | | | | | Intervertebral Disc | | | | | | L4-5; Depression; | | | | | | Adjustment Disorder | | | | | | with Anxiety; Major | | | | | | Depressive Disorder, | | | | | | Recurrent Episode, | | | | | | Moderate (HCC); | | | | | | Right Hip Region | | | | | | Pain | +--------+---------+ + + + Social History [...] + + + | Blood Pressure | 138/78 | 10/23/2006 12:38 PM | | | | | PDT | | + + + + + | Pulse | 70 | 10/23/2006 12:38 PM | | | | | PDT | | + + + + + | Temperature | 36.8 C (98.2 F) | 10/23/2006 12:38 PM | | | | | PDT | | + + + + + | Respiratory Rate | 16 | 10/23/2006 12:38 PM | | | | | PDT | | + + + + + | Oxygen Saturation | - | - | | + + + + + | Inhaled Oxygen | - | - | | | Concentration | | | | + + + + + | Weight | 92.9 kg (204 lb 12.9 | 10/23/2006 12:38 PM | | | | oz) | PDT | | + + + + + | Height | 175.3 cm (5' 9") | 10/23/2006 12:38 PM | | | | | PDT | | + + + + + | Body Mass Index | 30.24 | 10/23/2006 12:38 PM | | | | | PDT | | + + + + + documented in this encounter Patient Instructions Patient Instructions Delfina Molina - 10/23/2006 1:33 PM PDT1. Continue with current medi cations no changes 2. Continue with orthopedic surgical workup 3. Schedule Neurology evaluation [facility] order placed for Dr. Merari Mittal MD 4. Follow up 11/11/06 documented in this encounter Progress Notes Delfina Molina - 10/23/2006 1:20 PM PDTFormatting of this note might be different from th e original. 10/23/2006 Belinda Meehan is a 46 y.o. female [facility] Return Visit Chief Complaint: Chief Complaint Patient presents with Pain low back RLE History of Present Illness: Belinda Meehan is a 46 y.o. year-old female with a history of chronic pain due to multiple pain complaints. Belinda Barnes is here today for a follow up visit, and reports increased pain in the lower back and right LE since prior visit. She report falling last , she describes the right t high as an ache "like something backed into me". Denies tingling, numbness, weakness, bladde r or bowel dysfunction. She reports having "more of the shooting pain" more constant the las t two weeks in the right leg. She is not sure if the Trileptal is helping with the leg pain in the last couple of weeks, prior to that it was. Denies side effects noted. She reports moving residence these past two weeks, not doing much of the heavy lifting vargas garth more mvoement getting in and out of her car. She has not been seeing the [facility] PT , await ing the surgical plan for her left knee. MRI done, ordered by Dr. Ibarra who referred to Dr. Angel Morales for surgical opinion, scheduled for 10/28/06. She continues to see Dr. Alin adames at [facility] and reports benefit and would like to nelly salude she has two more scheduled visits. She reports Dr. Woodson referred her to neurologist locally for her migraine assessment how ever not being scheduled due to insurance [place] barriers. She is interested in being referred to a Dr. Merari Mittal [facility] neurlogy whom she has heard works with headache patients. Belinda Meehan was compliant with all aspects of chronic opioid therapy , is using the me dication as directed, demonstrates benefits, and has no serious adverse effects. There were no significant cognitive or mood impairments. There is no evidence of diversion past or pre sent. She is requesting her prescriptions today. Current outpatient prescriptions Medication Sig Dispense Refill Oxcarbazepine (TRILEPTAL) 150 mg OR TABS tab one po twice a day FENTANYL 25 MCG/HR 72 HR TRANSDERM PATCH apply 1 patch (25mcg/h) by transdermal route e very 72 hours 10 0 NORCO 10 MG-325 MG TAB take 1 tablet by oral route every 4-6 hours as needed for pain N TE 3 per day 90 0 Furosemide (LASIX) [...] Psychiatric History: Depressed Mood and sleep disturbance Collection Information Collection Date Collection Time Resulting Agency 10/05/2006 9:20 AM [facility] DEPARTMENT OF RADIOLOGY Component Results MR KNEE LT WO CONT: Radiologist 1: BONNIE POZO M.D.-Radiologist 2: MARINA DOBSON MD STUDY: MRI OF THE LEFT KNEE WITHOUT GADOLINIUM COMPARISON: Radiographs from 09/23/06. HISTORY: Knee pain, evaluate for medial meniscal tear. PROCEDURE: 1. Coronal proton density fast spin echo. 2. Coronal FSE mid TE with fat saturation.. 3. Sagittal proton density fast spin echo. 4. Sagittal FSE mid TE with fat saturation. 5. Axial T1 FSE. 6. Axial FSE mid TE with fat saturation. 7. Sagittal 3D/WATSf cartilage sequence. FINDINGS: There is blunting of the free margin of the body of the medial meniscus consistent with a focal radial tear. There is slight irregular morphology of the free margin and undersurface of the tobacco packer horn of the medial meniscus suspicious for extension of the care into the posterior horn. The anterior horn of the medial meniscus is intact. There is mild articular cartilage thinning with surface irregularity throughout the central aspect of the medial femoral condyle and posterior aspect of the medial tibial plateau. There is a small amount of marginal spurring within the medial compartment. There is mild increased intrasubstance T2 signal within the lateral meniscus at the junction of the posterior horn and body, compatible with myxoid degeneration. The lateral meniscus is otherwise intact. Articular cartilage is preserved throughout the lateral compartment. Articular cartilage along the medial and lateral patellar facets demonstrates heterogeneous intrasubstance signal with diffuse thinning and surface irregularity. There is mild marginal spurring of the patella as well. There is no joint effusion or bone marrow signal abnormality. There is no popliteal cyst. The anterior cruciate ligament and posterior cruciate ligament are intact. The medial collateral ligament and lateral ligamentous structures are normal. The quadriceps and patellar tendons are intact. IMPRESSION: 1. Radial tear of the body of the medial meniscus with irregular morphology of the free margin of the posterior horn, suspicious for extension of the tear. 2. Small amount of myxoid degeneration at the junction of the posterior horn and body of the lateral meniscus. 3. Articular cartilage thinning and surface irregularity within the medial and patellofemoral compartments with marginal spurring. Physical examination: BP 138/78 | Pulse 70 | Temp 98.2 F (36.8 C) | Resp 16 | Ht 1.753 m (5' 9") | Wt 92.900 kg (204 lbs 12.9 oz) Body mass index is 30.24 kg/(m^2). General appearance: Appears healthy. Alert; in no acute distress. Pleasant. Loftsrand cru tches, antalgic gait using a crutch Impression: 719.46J Left Knee Pain 346.90D Migraine Headache 304.01B Opioid Dependence, Continuous 723.1B Neck Pain 959.2U Right shoulder rotator cuff strain 721.42 Spondylosis with Myelopathy, Lumbar Region 722.10H Herniated Lumbar Intervertebral Disc L4-5 311G Depression 309.24 Adjustment Disorder with Anxiety 296.32 Major Depressive Disorder, Recurrent Episode, Moderate 719.45F Right Hip Region Pain No much as improved since prior visit with the left knee pain, however she has shown ongoin g progress with physical therapy with her shoulder pain, the spine pain is unlikely to impro ve until her knee pain has been surgical addressed. Recommendations/Plan: total 30 minute visit with greater than 50% spent in reviewing the progress notes, imaging and counselling/education of the patient. 1. Continue with current medications no changes 2. Continue with orthopedic surgical workup for the left knee 3. Schedule Neurology evaluation [facility] order placed for Dr. Merari Mittal MD 4. Follow up 11/11/06 to reivew pain management 5. Cntinue with PT and psychology as scheduled DELFINA MOLINA [facility] Mail code CH [address]P [address] [address] iAgustin maciasndy - 10/23 12:47 PM PDTCMA History: PMH/PSH/SH/FH review 1. Has your pain changed from your last visit? increased 2. Do you have any new weakness or decrease in sensation? yes 3. Do you have any difficulty with urination? No 4. How often do you have a bowel movement? every other day 5. Are you having difficulties with sexual function? Not applicable 6. Do your medications cause any side effects? no 7. Have you had physical therapy appointments since your last visit? no 8. Have you had psychology appointments since your last visit? no 9. Have you had any diagnostic studies since your last appointment? Yes MRI left knee 10. Do you require any medication refills today? yes documented in this enco unter Plan of Treatment Not on filedocumented as of this encounter Visit Diagnoses + + | Diagnosis | + + | Left Knee Pain - Primary Pain in joint, lower leg | + + | Migraine headache Migraine, unspecified, without mention of intractable migraine | | without mention of status migrainosus | + + | Opioid dependence, continuous (HCC) Opioid type dependence, continuous | + + | Neck pain Cervicalgia | + + | Right shoulder rotator cuff strain Injury, other and unspecified, shoulder and upper | | arm | + + | Spondylosis with myelopathy, lumbar region | + + | Herniated Lumbar Intervertebral Disc L4-5 Displacement of lumbar intervertebral disc | | without myelopathy | + + | Depression Depressive disorder, not elsewhere classified | + + | Adjustment disorder with anxiety | + + | Major depressive disorder, recurrent episode, moderate (HCC) Major depressive | | disorder, recurrent episode, moderate | + + | Right Hip Region Pain Pain in joint, pelvic region and thigh | + + documented in this encounter
--- OUTSIDE RECORDS SUMMARY | ~2019-10-17 | XMS | Encounter Summary ---
Demographics + + + | Address | [address] | | | [place] [address] | + + + | Home Phone [...] Providers + +------+ + | Care Marketing Professor Name | Role | Phone | [...] Description | +--------+--------+ + + + | 07/19/ | Refill | [facility] | Alanis, | Medication Refill | | 2019 | | MEDICINE [address] | MD [place] | | | | | [facility] | [address] [place] [address] | | | | | [place] [address] | [place] [address] | | | | | [phone] | [phone] | | | | | | | [...] | | | | [address] [place] | | | | | | [place] [address] | | | | | | [phone] | | | | | | | | +--------+---------+ + + + | 12/20/ | Office | Audiology | Elisabet Munson MS | | | 2019 | Visit | | [facility] [address] | | | | | | [place] [address] [place] | | | | | | [place] [address] | | | | | | [phone] | | | | | | | | +--------+---------+ + + + | 12/20/ | Office | Otolaryngology | Ulysses Genao MD | | | 2020 | Visit | | [address] [facility] | | | | | | [address] [place], | | | | | | [place] [address] | | | | | | [phone] | | | | | | | | +--------+---------+ + + + documented as of this encounter Visit Diagnoses Not on filedocumented in this encounter"
--- OUTSIDE RECORDS SUMMARY | ~2019-10-17 | XMS | Encounter Summary ---
Demographics + + + | Address | [address] | | | [place] [address] | + + + | Home Phone [...] Providers + +------+ + | Care Set Rider Name | Role | Phone | + +------+ + | Pertona Thapa | PCP | | | MD | | | + +------+ + Reason for Visit + + + | Reason | Comments | + + + | Medication Refill | | + + + Encounter Details +--------+--------+ + + + | Date | Type | Department | Care Team | Description | +--------+--------+ + + + | 04/26/ | Refill | [facility] | Alanis, | Medication Refill | | 2017 | | MEDICINE [address] [place] [address] | MD Petrona | | | | | [facility] | [address] [place] [address] | | | | | [place] [address] | [place] [address] | | | | | [phone] | [phone] | | | | | | | [...] | | | | | | [place] [address] | | | | | | [phone] | | | | | | | | +--------+---------+ + + + | 12/20/ | Office | Audiology | Elisabet Munson MS | | | 2019 | Visit | | [facility] [address] | | | | | | [place] [address] [place] | | | | | | [place] [address] | | | | | | [phone] | | | | | | | | +--------+---------+ + + + | 12/20/ | Office | Otolaryngology | Ulysses Genao MD | | | 2020 | Visit | | [address] [facility] | | | | | | [address] [place], | | | | | | [place] [address] | | | | | | [phone] | | | | | | | | +--------+---------+ + + + documented as of this encounter Visit Diagnoses Not on filedocumented in this encounter"
--- OUTSIDE RECORDS SUMMARY | ~2019-10-17 | XMS | Encounter Summary ---
Demographics + + + | Address | [address] | | | [place] [address] | + + + | Home Phone [...] Providers + +------+ + | Care Media Liaison Officer Name | Role | Phone | + +------+ + | Pedrito Gutierrez MD | PCP | | + +------+ + Encounter Details +--------+---------+ + + + | Date | Type | Department | Care Team | Description | +--------+---------+ + + + | 08/26/ | Office | Comprehensive Pain | Nathalia Arora | Spondylosis with | | 2006 | Visit | [facility] | [address] | Myelopathy, Lumbar | | | | [address] [place], | Region; Herniated | | | | [address] Mailcode: | [place] [address] | Lumbar | | | | [facility] [place] for | | Intervertebral Disc | | | | Health and Healing, | | L4-5; Neck Pain; | | | | | | Fibromyalgia | | | | Floor [place], [place] | | syndrome 729.1 | | | | [address] | | | | | | [phone] | | | +--------+---------+ + + + [...] documented as of this encounter Progress Notes Nathalia Arora - 08/26/2006 11:53 AM PDTFormatting of this note might be different from lesli rodriguez original. PROGRESS NOTE: Physical Therapy Medicare Progress Note Date: 08/26/2006 Belinda Meehan [id number]. 1960 Start of Care: 06/23/2006 Referring Provider: Miranda Lambert Primary Diagnosis: Encounter Diagnoses Code Name Primary? 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 Objective: Patient returned for physical therapy f/u visit. Functionally, patient has not had any bad migraines the past 2 weeks and no falls. Patient's right knee gives out intermi ttently secondary to severe arthritis and weakness. Discussed patient's status with her and when she is finished at the [facility] with physical therapy advised to become involved in pool ex ercise, which will be best for her overall. Patient does note that her abdominal symptoms h ave reduced to just an intermittent basis, and has no pain in that area at this time. Treatment: Continued in supine table top position with lumbopelvic stabilization progressi on: 1. Isometric lower abdominals using deep breathing 2. External obliques in conjunction with lower abdominals isometric, added in B shoulder F /E X 8 reps to fatigue. 3. Lower abdominals with B isometric hip ADD to fatigue 4. In hook lying position, continued with lower abdominals and B hip ABD to fatigue Patient issued written/illustrated instructions of complete HEP progression. Assessment: Patient demonstrated fairly good control with stabilization regime, decreased s trength and endurance of core stabilizers with multiple medical problems; Goal now is to wa lk 25-30 minutes Plan: Continue with progressive strengthening for core, see patient for f/u in 2 weeks, X 3 more visits total. Treatment began: 1109 Treatment ended: 1144 Nathalia Arora, Physical Therapist License number [id number] documented in this encoun ter Plan of Treatment + + +--------+ + + | Name | Type | Priori | Associated Diagnoses | Order Schedule | | | | ty | | | + + +--------+ + + | NE THERAPEUTIC | Procedures | Routin | Spondylosis with | Ordered: 08/26/2006 | | EXERCISES | | e | Myelopathy, Lumbar | | | | [...] Neck pain Cervicalgia | + + | Fibromyalgia syndrome 729.1 Mylagia and myositis, unspecified | + + documented in this encounter"
--- OUTSIDE RECORDS SUMMARY | ~2019-10-17 | XMS | Encounter Summary ---
Demographics + + + | Address | [address] | | | [place] [address] | + + + | Home Phone [...] Team Providers + +------+ + | Care Tribal Judge Name | Role | Phone | + +------+ + | Pedrito Gutierrez MD | PCP | | + +------+ + Reason for Visit + + + | Reason | Comments | + + + | Letter From | | | Specialist | | + + + Encounter Details +--------+ + + + + | Date | Type | Department | Care Team | Description | +--------+ + + + + | 06/12/ | Telephone | Kraig Turner | Beto Meeks MD | Letter From | | 2008 | | [facility] | [address] | Specialist | | | | [facility] | [place], [place] | | | | | [address] | [address] | | | | | [address] | [phone] | | | | | Physician's | | | | | | Pavilion, 1st floor | | | | | | [place], [place] | | | | | | [address] | | | | | | [phone] | | | +--------+ + + + [...]
--- OUTSIDE RECORDS SUMMARY | ~2019-10-17 | XMS | Encounter Summary ---
Demographics + + + | Address | [address] | | | [place] [address] | + + + | Home Phone [...] Team Providers + +------+ + | Care Patrol Captain Name | Role | Phone | + [...] | | | Metabolism | bypass | [address] | [address] | | | | | Hypovitamino | [address], | Ave | | | | | sis D B12 | [address] | [place], [place] | | | | | nutritional | [place], [place] | [address] | | | | | deficiency | [address] | Phone: | | | | | Other | Phone: | [phone] | | | | | protein-jose manuel | [phone] | Fax: | | | | | nick | Fax: | [phone] | | | | | malnutrition | [phone] | | | | | | Weight | | | | | | | gain | | | | | | | Procedures | | | | | | | CONSULT TO | | | | | | | ENDO | | | | | | | [address] | | | | | | | [address] | | | +--------+--------+ + + + [...] | | | [facility] | [place], [place] | Metabolic syndrome X | | | | [address] | [address] | 250.80; Essential | | | | [address] | [phone] | hypertension 401.9; | | | | Physician's Pavilion | | IGT (impaired | | | | Physician's | | glucose tolerance) | | | | Pavilion [place], | | | | | | [place] [address] | | | | | | [phone] | | | +--------+---------+ + + + [...] month in the pain center her at [facility], so she is hoping to find an [...] Hives Mainly in the legs Clindamycin Codeine Ubzbgbm-Jheepuvlfn-Jdq-Caff Balance problems Fioricet W/Codeine (Nlpgjzlpco-Yapqgpkvlx-Bes-Cod) Keflex (Cephalexin) Morphine IM ( only in [facility]) made gut pain worse 08/27/06: Trial [...] U/L 41 ANION GAP 8 VITAMIN B12, [id number] pg/ml >2000 (H) HEMOGLOBIN A1C <=5.6 % [...] SERUM 15.0-85.0 pg/ml 222.9 (H) VITAMIN B12, SHAOG453-924 pg/ml > 2000 HEMOGLOBIN A1C <=5.6 % [...]
--- OUTSIDE RECORDS SUMMARY | ~2019-10-17 | XMS | Encounter Summary ---
Demographics + + + | Address | [address] | | | [place] [address] | + + + | Home Phone [...] Team Providers + +------+ + | Care Colorman Name | Role | Phone | + [...] + | 06/30/ | Refill | [facility] | Alanis, | Medication Refill | | 2017 | | MEDICINE [address] [place] [address] | MD Petrona | | | | | [facility] [place] | [address] [place] [address] | | | | | [place] [address] | [place] [address] | | | | | [phone] | [phone] | | | | | | | [...] | | | | | [place] [address] | | | | | | [phone] | | | | | | | | +--------+---------+ + + + | 12/20/ | Office | Audiology | Elisabet Munson MS | | | 2019 | Visit | | [facility] [address] | | | | | | [place] [address] [place] | | | | | | [place] [address] | | | | | | [phone] | | | | | | | | +--------+---------+ + + + | 12/20/ | Office | Otolaryngology | Ulysses Genao MD | | | 2020 | Visit | | [address] [facility] | | | | | | [address] [place], | | | | | | [place] [address] | | | | | | [phone] | | | | | | | | +--------+---------+ + + + documented as of this encounter Visit Diagnoses Not on filedocumented in this encounter"
--- OUTSIDE RECORDS SUMMARY | ~2019-10-17 | XMS | Encounter Summary ---
Demographics + + + | Address | [address] | | | [place] [address] | + + + | Home Phone [...] Providers + +------+ + | Care House Carpenter Helper Name | Role | Phone | + +------+ + | Maria Esther Cintron MD | PCP | | + +------+ + Encounter Details +--------+ + + + + | Date | Type | Department | Care Team | Description | +--------+ + + + + | 10/06/ | Abstract | Digestive Health | Patricia Banegas, | | | 2012 | | Center at [facility] [address] | PROVISIONING ANALYST [address] | | | | | [address] | , [address] | | | | | Mailcode: Center | [place], [place] | | | | | [facility] and | [address] | | | | | Healing, [address] | [phone] | | | | | [employer], [place] | | | | | | [address] | | | | | | [phone] | | | +--------+ + + + [...]
--- OUTSIDE RECORDS SUMMARY | ~2019-10-17 | XMS | Encounter Summary ---
Demographics + + + | Address | [address] | | | [place] [address] | + + + | Home Phone [...] Providers + +------+ + | Care Cnc Machine Setter Name | Role | Phone | + +------+ + | Pedrito Gutierrez MD | PCP | | + +------+ + Encounter Details +--------+---------+ + + + | Date | Type | Department | Care Team | Description | +--------+---------+ + + + | 09/09/ | Office | Comprehensive Pain | Nathalia Arora | Neck Pain; | | 2006 | Visit | [facility] | [address] | Spondylosis with | | | | [address] | [address] [place], | Myelopathy, Lumbar | | | | [address] Mailcode: | [place] [address] | Region; Herniated | | | | [facility] [place] for | | Lumbar | | | | Health and Healing, | | Intervertebral Disc | | | | | | L4-5; Fibromyalgia | | | | Floor [place], [place] | | syndrome 729.1 | | | | [address] | | | | | | [phone] | | | +--------+---------+ + + + [...] December 02, 2006 Patient: Belinda J Shefali, [id number], 1960 I agree with the proposed Physical Therapy Treatment Plan. Provider: DELFINA MOLINA ANP Nathalia Garrett - 007 4:49 PM PDT Physical Therapy Medicare Progress Note Date: 09/09/2006 Belinda J Shefali [id number]. 1960 Start of Care: 06/23/2006 Referring Provider: [...] with walking and sitting; driving back to [place] 2 weeks ago, stopped at rest place and got out of care, falling onto B knees, getting better. Objective: Apparently patient's trip home 2 weeks ago was most likely related to her positi oning, ie B knees were hyperflexed for a prolonged time. She has not fallen since then, use s her lofstrand crutches consistently. Functionally, patient is walking 25 minutes at [employer] at least daily and tolerating it we [...] + + +--------+ + + | RI MANUAL THER | Procedures | Routin | [...] + + +--------+ + + | RI THERAPEUTIC | Procedures | Routin | Neck [...]
--- OUTSIDE RECORDS SUMMARY | ~2019-10-17 | XMS | Encounter Summary ---
Demographics + + + | Address | [address] | | | [place] [address] | + + + | Home Phone [...] Team Providers + +------+ + | Care Yam Curer Name | Role | Phone | + [...] [address] | | | | | | [place], [place] | | | | | | [address] | | | | | | [phone] | | | +--------+ + + + [...]
--- OUTSIDE RECORDS SUMMARY | ~2019-10-17 | XMS | Encounter Summary ---
Demographics + + + | Address | [address] | | | [place] [address] | + + + | Home Phone [...] Team Providers + +------+ + | Care Forest Fire Specialist Supervisor Name | Role | Phone | + +------+ + | Petrona Thapa | PCP | | | MD | | | + +------+ + Reason for Visit + + + | Reason | Comments | + + + | Arm Pain | Right Arm | + + + Encounter Details +--------+ + + + + | Date | Type | Department | Care Team | Description | +--------+ + + + + | 02/11/ | Telephone | [facility] | Alanis, | Arm Pain (Right Arm) | | 2017 | | MEDICINE [address] [place] [address] | MD Petrona | | | | | [facility] | [address] [place] [address] | | | | | [place] [address] | [place] [address] | | | | | [phone] | [phone] | | | | | | | [...] RIOS | | | | | | [place] [address] | | | | | | [phone] | | | | | | | | +--------+---------+ + + + | 12/20/ | Office | Audiology | Elisabet Munson MS | | | 2019 | Visit | | [facility] | | | | | | [place] [address] [address] | | | | | | [place] [address] | | | | | | [phone] | | | | | | | | +--------+---------+ + + + | 12/20/ | Office | Otolaryngology | Ulysses Genao MD | | | 2020 | Visit | | [address] [place] | | | | | | [address] [place], | | | | | | [place] [address] | | | | | | [phone] | | | | | | | | +--------+---------+ + + + documented as of this encounter Visit Diagnoses Not on filedocumented in this encounter"
--- OUTSIDE RECORDS SUMMARY | ~2019-10-17 | XMS | Encounter Summary ---
Demographics + + + | Address | [address] | | | [place] [address] | + + + | Home Phone [...] Providers + +------+ + | Care Table Cut Off Saw Operator Name | Role | Phone | [...] + + | 09/23/ | Office | [facility] | Lukasz Charles, | Major Depressive | | 2006 | Visit | [address] | PhD [address] | Disorder, Recurrent | | | | Mailcode: CH15 | [place], [place] | Episode, Moderate | | | | [facility] | [address] | (HCC); Chronic | | | | and Healing, | [phone] | Abdominal Pain; | | | | Building | | Herniated Lumbar | | | | Floor [place], [place] | | Intervertebral Disc | | | | [address] | | L4-5; DJD | | | | [phone] | | (Degenerative Joint | | | | | | Disease) of Left | | | | | | Knee; Other Pain | | | | | | Disorders Related to | | | | | | Psychological | | | | | | Factors; Adjustment | | | | | | Disorder with | | | | | | Anxiety | +--------+---------+ + + + Social [...] this encounter Progress Notes Lukasz Charles - 09/23/2006 11:56 AM PDTPROGRESS NOTE: Belinda Meehan is a 46 y.o. female with head, abdominal, back, and leg pain. She has sym ptoms of depression and anxiety along with her pain. She reported stress because she was to ld by her landlord that she needs to move in the next month. We discussed planning for the move and coping with the physical demands. She described a flare-up related to overactivity preparing an Easter meal. We discussed work simplification and self care. She has knowled ge of these topics but does not implement the skills regularly. She has been reading from " Managing Pain Before It Manages You" by Ailyn Canela and has been using coping skills earlier. Ms. Meehan has ongoing depression and frustration. She is not suicidal. She continues to make good progress but still neglects self-care occasionally. Diagnosis: Harbinger I: 1. (296.32) Major depressive disorder, recurrent, moderate. 2. (309.24) Adjustment disorder with anxiety. 3. 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 Harbinger II: Deferred Harbinger III: abdominal pain, migraine headache, low back pain. Harbinger IV: low finances Harbinger V: GAF 50 Plan: Return in 2 weeks. Check preparation for move and for niece's visit, [employer], pacing, r elaxation, activity, distraction. Check managing Pain... book. Discuss need for further vi sits. Total time spent with patient was approximately 45 minutes. LUKASZ CHARLES PHD [facility] [facility], [address] [place] [id number] documented in this encount er Plan of Treatment + + +--------+ + + | Name | Type | Priori | Associated Diagnoses | Order Schedule | | | | ty | | | + + +--------+ + + | [facility], | Procedures | Routin | Major Depressive | Ordered: 09/23/2006 | | OFFICE (4550) | | e | Disorder, Recurrent | | | | | | Episode, Moderate | | | | | | (HCC) Chronic | | | | | | Abdominal Pain | | | | | | Herniated Lumbar | | | | | | Intervertebral Disc | | | | | | L4-5 DJD | | | | | | (Degenerative Joint | | | | | | Disease) of Left | | | | | | Knee Other Pain | | | | | | Disorders Related to | | | | | | Psychological | | | | | | Factors Adjustment | | | | | | Disorder with | | | | | | Anxiety | | + + +--------+ + + documented as of this encounter Visit Diagnoses + + | Diagnosis | + + | Major depressive disorder, recurrent episode, moderate (HCC) Major depressive | | disorder, recurrent episode, moderate | + + | Chronic abdominal pain Abdominal pain, unspecified site | + + | Herniated Lumbar Intervertebral Disc L4-5 Displacement of lumbar intervertebral disc | | without myelopathy | + + | 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 Osteoarthrosis, unspecified whether | | generalized or localized, lower leg | + + | Other pain disorders related to psychological factors | + + | Adjustment disorder with anxiety | + + documented in this encounter
--- OUTSIDE RECORDS SUMMARY | ~2019-10-17 | XMS | Encounter Summary ---
Demographics + + + | Address | [address] | | | [place] [address] | + + + | Home Phone [...] Team Providers + +------+ + | Care Master Plumber Name | Role | Phone | + [...] | + +--------+ + + + | [place] [facility], | | 05/12/2006 | | | | INTRALUMINAL | | | | | + +--------+ + + + documented in this encounter Visit Diagnoses Not on filedocumented in this encounter"
--- OUTSIDE RECORDS SUMMARY | ~2019-10-17 | XMS | Encounter Summary ---
Demographics + + + | Address | [address] | | | [place] [address] | + + + | Home Phone [...] Team Providers + +------+ + | Care Stonecutter Apprentice Hand Name | Role | Phone | [...] as of this encounter Progress Notes Interface, Dental Assistant Instructor In - 02/15/2006 2:03 AM PDT [id number] GEOVANNI BELINDA Molly [id number] Clinic Date: 01/29/2006 Clinic: Endocrinology Belinda Meehan [...] her visits to the Emergency Department in [place], she apparently had elevated "liver enzyme levels" and her blood pressure was up to 160/98. She subsequently underwent diagnostic testing that apparently included CT imaging of her abdomen and upper GI endoscopy, abdominal ultrasound, and other testing; the results of which have apparently been normal. She started going to [place] [employer] approximately 2 weeks ago which has increased her level of physical activity. She has only occasional headaches, due in part to ongoing treatment with propanolol. She apparently was referred by Dr. Padgett to see a job putter up and ticket preparer here at [facility] for further evaluation of severe recurrent [...] ([facility] and pulse 60 beats per minute and [...] evaluated recently at the Emergency Department in [place]. Her alkaline phosphatase level today is about [...] would benefit from being evaluated by a job putter up and ticket preparer. According to the patient, no gastroenterologists are available in [place]. She needs to petition her primary care provider and her insurance company to give the necessary authorization to allow her to be evaluated by a job putter up and ticket preparer. Plan: 1. Await results of serum 25-hydroxyvitamin [...] She needs to be seen by a job putter up and ticket preparer. 5. Return to see me again in 3 months. Beto Meeks M.D. PD / HS [id number] / [id number] / [id number] / cc: Pedrito Gutierrez M.D. [address] [place] [address] Chris Padgett M.D. Electronically signed by Beto Meeks 02-14-2006 02:02:55 AM documented i n this encounter Plan of Treatment Not on filedocumented as of this encounter Visit Diagnoses Not on filedocumented in this encounter
--- OUTSIDE RECORDS SUMMARY | ~2019-10-17 | XMS | Encounter Summary ---
Demographics + + + | Address | [address] | | | [place] [address] | + + + | Home Phone [...] Providers + +------+ + | Care Head Loader Name | Role | Phone | [...] | | | | | | [place], | | | | | | | [place] | | | | | | | [address] | | | | | | | Phone: | | | | | | | [phone] | | | | | | | Fax: | | | | | | | [phone] | +--------+--------+ + + + + Encounter Details +--------+---------+ + + + | Date | Type | Department | Care Team | Description | +--------+---------+ + + + | 07/10/ | Office | Digestive Health | Eliezer Ruano, | Abdominal Pain, | | 2008 | Visit | [place] [address] | [address] | dumping syndrome Hx | | | | Ave Mailcode: [facility] | [address] | of gastric bypass | | | | [facility] | [place], [place] | (Primary Dx) | | | | and Healing, | [address] | | | | | Building | [phone] | | | | | Floor [place], [place] | | | | | | [address] | | | | | | [phone] | | | +--------+---------+ + + + [...] and plan of care. ELIEZER RUANO MD [address] Mailcode: [place] [address] Yuriy Mayo MD - 06/16 [...] (Ciprofloxacin) Tramadol Morphine IM ( only in [facility]) made gut pain worse 08/27/06: Trial of oral MSIR caused leg swelling Clarithromycin Hives Mainly in the legs Current outpatient prescriptions prior to encounter Medication Sig Dispense Refill aspirin chewable (BABY ASPIRIN) 81 mg Oral Tablet, Chewable 2 daily buPROPion XL (WELLBUTRIN XL) 300 mg Oral Tablet Sustained Release 24 hr take 1 tablet ( 300 mg) by oral route once daily iwugkdadgw-cctfwtmxbtyau-dgsdmpyu (FIORICET) 50-325-40 mg Oral Tablet take 2 [...] 278 01/18 Paniculectomy Hx lumbar fusion 05/2008 L1-N4bqgevz with bone spur removals Review of Systems: [...] patient was seen and examined with Dr. lEiezer Ruano. documented in this encounter Plan of Treatment Not on filedocumented as of this encounter Visit Diagnoses + + | Diagnosis | + + | Abdominal Pain, dumping syndrome Hx of gastric bypass - Primary Abdominal pain, | | other specified site | + + documented in this encounter"
--- OUTSIDE RECORDS SUMMARY | ~2019-10-17 | XMS | Encounter Summary ---
Demographics + + + | Address | [address] | | | [place] [address] | + + + | Home Phone [...] Team Providers + +------+ + | Care It Trainer Name | Role | Phone | + [...] + + | 12/21/ | Office | [facility] Comprehensive | Ines Molinaanne, | Left Knee Pain; DJD | | 2006 | Visit | Pain Center at | ANP | (Degenerative Joint | | | | [facility] | | Disease) of Knee; | | | | [address] | | Pain in right Ankle | | | | Mailcode: [id number] | | and Foot; Right Hip | | | | Center for [facility] | | Region Pain; | | | | and Healing, | | Spondylosis with | | | | Building | | Myelopathy, Lumbar | | | | Floor [place], [place] | | Region; Herniated | | | | [address] | | Lumbar | | | | [phone] | | Intervertebral Disc | | | | | | L4-5; Fibromyalgia | | | | | | syndrome 729.1; | | | | | | Opioid Dependence, | | | | | | Continuous ([facility]); | | | | | | Major Depressive | | | | | | Disorder, Recurrent | | | | | | Episode, Moderate | | | | | | ([facility]); Adjustment | | | | | | [...] Belinda Meehan is a 46 y.o. female [facility] Comprehensive Pain Center Return Visit [...] therapy in particular with oxycontin with Belinda Simons. We reviewed materials risk notice and [facility] opioid agreement. A ll questions were addressed [...] management and reduce opioid need. DELFINA MOLINA [facility] Pain Center Mail code CH 4P [facility] 139[address] Health system [address] Ailyn Foster 12/22/19 12:51 PM PDTCMA History: PMH/PSH/SH/ review 1. Has your pain [...] | + + | Opioid dependence, continuous ([facility]) Opioid type dependence, continuous | + + [...]
--- OUTSIDE RECORDS SUMMARY | ~2019-10-17 | XMS | Encounter Summary ---
Demographics + + + | Address | [address] | | | [place] [address] | + + + | Home Phone [...] Providers + +------+ + | Care Director Home Health Name | Role | Phone | + [...] + + | 05/14/ | Telephone | [facility] | Alanis, | Referral | | 2017 | | MEDICINE [address] [place] [address] | MD Petrona | | | | | [facility] | [address] [place] [address] | | | | | [place] [address] | [place] [address] | | | | | [phone] | [phone] | | | | | | | [...] | | | | | [place] [address] | | | | | | [phone] | | | | | | | | +--------+---------+ + + + | 12/20/ | Office | Audiology | Elisabet Munson MS | | | 2019 | Visit | | [facility] [address] | | | | | | [place] [address] [place] | | | | | | [place] [address] | | | | | | [phone] | | | | | | | | +--------+---------+ + + + | 12/20/ | Office | Otolaryngology | Ulysses Genao MD | | | 2020 | Visit | | [address] [facility] | | | | | | [address] [place], | | | | | | [place] [address] | | | | | | [phone] | | | | | | | | +--------+---------+ + + + documented as of this encounter Visit Diagnoses Not on filedocumented in this encounter"
--- OUTSIDE RECORDS SUMMARY | ~2019-10-17 | XMS | Encounter Summary ---
Demographics + + + | Address | [address] | | | [place] [address] | + + + | Home Phone [...] Team Providers + +------+ + | Care Test Case Developer Name | Role | Phone | + +------+ + | Petrona Thapa | PCP | | | MD | | | + +------+ + Encounter Details +--------+ + + + + | Date | Type | Department | Care Team | Description | +--------+ + + + + | 12/07/ | Abstract | [facility] | Alanis, | | | 2017 | | MEDICINE [address] | MD [place]rona | | | | | [address] [facility] | [address] | | | | | [place] [address] | [place] [address] | | | | | [phone] | [phone] | | | | | | | [...] | | | | | | [place] [address] | | | | | | [phone] | | | | | | | | +--------+---------+ + + + | 12/20/ | Office | Audiology | Elisabet Munson MS | | | 2019 | Visit | | [facility] [address] | | | | | [address] [place] | | | | | | [place] [address] | | | | | | [phone] | | | | | | | | +--------+---------+ + + + | 12/20/ | Office | Otolaryngology | Ulysses Genao MD | | | 2019 | Visit | | [address] | | | | | | [address] [place], | | | | | | [place] [address] | | | | | | [phone] | | | | | | | [...] Results for this | | STUDY MARTHA MARJANZofia FX | e | | | procedure are in the | | ASSESSMENT | | | | results section. | + +--------+ + + + documented in this encounter Results DEXA Bone Density wo Vert Fx Assmt (04/01/2016) + +-------+ + + + [...]
--- OUTSIDE RECORDS SUMMARY | ~2019-10-17 | XMS | Encounter Summary ---
Demographics + + + | Address | [address] | | | [place] [address] | + + + | Home Phone [...] + +------+ + | Care Manager Of Development Name | Role | Phone | + [...] | | | | | milycare | [address] | [address] | | | | | Medicare/Ion | , MD [address] | [place], | | | | | escu | [address] | [place] [address] | | | | | Procedures | [place], | Phone: | | | | | OFFICE VISIT | [place] | [phone] | | | | | REGULAR | [address] | Fax: | | | | | | Phone: | [phone] | | | | | | [phone] | | | | | | | Fax: | | | | | | | [phone] | | +--------+--------+ + + + + Encounter Details +--------+---------+ + + + | Date | Type | Department | Care Team | Description | +--------+---------+ + + + | 12/07/ | Office | [facility] | Ulysses Dsouza MD | BPPV (benign | | 2015 | Visit | OTOLARYNGOLOGY [address] | [address] [place] | paroxysmal | | | | [address] | [address] [place], | positional vertigo), | | | | [place] | [place] [address] | left (Primary Dx); | | | | [address] | [phone] | Vertigo of central | | | | [phone] | | origin, left | +--------+---------+ + [...] MD - 12/07/2014 1:[address] [facility] OTOLARYNGOLOGY [address] [facility] [address] OFFICE NOTE ULYSSES DSOUZA MD Patient: BELINDA MEEHAN Admitting: MR #: [id number] LOC: PT TYPE: Adm Date: 12/07/2014 : 1960 DATE OF VISIT: 12/07/2014. The patient is having a tremendous problem with her balance. At times she gets a spinning type sensation, other times she just tends to fall down and recently she has developed a w rist drop on the right arm. She has seen an orthopedist who put her in a splint. [facility] ent has completed an MRI scan [...] to the patient. Extensive discussion was rasheed colin on that the patient hopefully would be [...] 12/07/2014 13:48:42 Transcribed on 12/08/2014 04:46:49 by [facility] job# [id number] Confirmation #: [id number] signed by Ulysses Dsouza MD at 12/08/2014 8:52 AM Ulysses Arnold MD - 12/07/2014 1:43 PM PDTSee dictation #[id number] signed by Dmitriy Dsouza MD at 12/07/2014 [...] | | | | | | [place] [address] | | | | | | [phone] | | | | | | | | +--------+---------+ + + + | 12/20/ | Office | Audiology | Elisabet Munson MS | | | 2019 | Visit | | [facility] [address] | | | | | [address] [place] | | | | | | [place] [address] | | | | | | [phone] | | | | | | | | +--------+---------+ + + + | 12/20/ | Office | Otolaryngology | Ulysses Dsouza MD | | | 2019 | Visit | | [address] | | | | | | [address] [place], | | | | | | [place] [address] | | | | | | [phone] | | | | | | | | +--------+---------+ + + + documented as of this encounter Visit Diagnoses + + | Diagnosis | + + | BPPV (benign paroxysmal positional vertigo), left - Primary | + + | Vertigo of central origin, left | + + documented in this encounter
--- OUTSIDE RECORDS SUMMARY | ~2019-10-17 | XMS | Encounter Summary ---
Demographics + + + | Address | [address] | | | [place] [address] | + + + | Home Phone [...] Team Providers + +------+ + | Care Vice President Corporate Communications Name | Role | Phone | + [...] + + | 07/30/ | Office | [facility] Comprehensive | Delfina Molina, | Cervical Spondylosis | | 2006 | Visit | Pain Center at | ANP | without Myelopathy | | | | [facility] | | (Primary Dx); Right | | | | [address] | | shoulder rotator | | | | Mailcode: CH15P | | cuff strain; | | | | [place] [facility] | | Spondylosis with | | | | and Healing, | | Myelopathy, Lumbar | | | | Building | | Region; Herniated | | | | Floor [place], [place] | | Lumbar | | | | [address] | | Intervertebral Disc | | | | [phone] | | L4-5; Migraine | | | | | | Headache; | | | | | | Depression; | | | | | | Fibromyalgia [...] + + + | Blood Pressure | 118/60 | 07/30/2006 7:41 AM | | | | | PST | | + + + + + | Pulse | 88 | 07/30/2006 7:41 AM | | | | | PST | | + + + + + | Temperature | 37.1 C (98.8 F) | 07/30/2006 7:41 AM | | | | | PST | | + + + + + | Respiratory Rate | 16 | 07/30/2006 7:41 AM | | | | | PST | | + + + + + | Oxygen Saturation | - | - | | + + + + + | Inhaled Oxygen | - | - | | | Concentration | | | | + + + + + | Weight | 90.2 kg (198 lb 14.4 | 07/30/2006 7:41 AM | | | | oz) | PST | | + + + + + | Height | 175.3 cm (5' 9") | 07/30/2006 7:41 AM | | | | | PST | | + + + + + | Body Mass Index | 29.37 | 07/30/2006 7:41 AM | | | | | PST | | + + + + + documented in this encounter Patient Instructions Patient Instructions 07/30/2006 8:30 AM PST 1. For the nerve sensitivity and pain try Tril eptal(Oxcarbazepine) 150 mg, 1/2 tablet PO at bedtime if after three days no side effects in crease to 1/2 tablet twice a day X 7 days, then increase in 2-3 day intervals to 150 mg oral ly every 12hours. 2. Continue with Physical therapy and pain psychology. 3. Get neck x-ray done before you leave today - third floor radiology. 4. I recommend a self help book for improving pain coping and adaptation called "Managing Pain Before It Manages You" by Mariama Canela. 5. Please call clinic with any concerns or questions. 6. Follow up in two weeks to review. documented in this encounter Progress Notes Delfina Molina - 07/30/2006 7:57 AM PSTFormatting of this note might be different from lesli gomez. 07/30/2006 Belinda Meehan is a 46 y.o. female [facility] Return Visit Chief Complaint: Chief Complaint Patient presents with Pain all over History of Present Illness: Belinda Meehan is a 46 y.o. year-old female with a history of chronic pain due to degenerative spine disease and fibromyalgia. Belinda is here today for a follow up visit, and reports increased pain since prior visit. She reports Dr. Gutierrez stopping the prescribing her Oxycodone. She was taking typically 1 5mg 1 tablet tid. Since this happened she states "I feel I've been run over by a truck", "I' m hurting all over". 60% pain is in the lower spine, she describes this as a "hot poker" go ing up the spine, that wilde this radiates into the right leg pain as adull throbbing pain. Pain today is worst in the neck and right side of the head ( points to parietal region) whe re she typically gets headache, the neck pain radiates into the right shoulder more than the left. Pain aggravating factors include for the neck looking up and bending back and turning sidew ays, For back sitting standing and lying on side; headaches light and sound sensative and a lleviating factors are pillow under knees helps with leg pain, dark room and quiteness resti ng for headache physical therapy and medications for the neck and shoulder. Belinda Barnes reports mood being more depressed ( denies SI ) and she doing deep breathing execi se, And stretches helps with feeling anxious, and PT exercises she is doing and these have helped improve function but not terminal supervisor, and she reports sleeping poorly due to pain disru ption since prior visit. Since prior visit she had a 06/24/06: Bone density study and her T-Score -1.2 lumbar spine a nd -2.2 proximal femur. Collection Information Collection Date Collection Time Resulting Agency 03/10/2006 2:42 PM [facility] DEPARTMENT OF PATHOLOGY Component Results Component Value Range Status CALCIUM (LAB) 9.5 8.5 - 10.5 mg/dL Fin SPINE LUMBAR 2 VIEWS AT 1421 HOURS LUMBAR SPINE, 10/01/05 HISTORY: Back pain. FINDINGS: AP and lateral views of the lumbar spine show five duy-woy-ofahvyr lumbar vertebrae in normal alignment with no evidence of fracture or osseous lesion. There is loss of disk height at L5-S1, with a vacuum phenomenon and eburnation of the endplates. There is no significant degenerative change of the posterior elements. Surgical efren and clips are in the abdomen, bilaterally. IMPRESSION: L5-S1 DEGENERATIVE DISK DISEASE AND SPONDYLOSIS Current outpatient prescriptions Medication Sig Dispense Refill BIAXIN 500 MG TAB take 1 tablet (500mg) by oral route every 12 hours GERITOL COMPLETE OR 2 x daily CYANOCOBALAMIN 1,000 MCG TAB 1 x monthly WELLBUTRIN XL 300 MG 24 HR TAB take 1 tablet (300mg) by oral route once daily GERITOL OR tonix with ferrix; 2 tsp daily CALCIUM + D 600 MG-200 UNIT TAB 4 tabs daily MAGNESIUM 200 MG TAB 2 tabs twice daily VITAMIN E 400 UNIT CAP once daily Side effects: denies Past Medical History [...] Additional Family History Mother Migraine Review of Systems:: Bones, Joints, and Muscles: joint pain, muscle pain and stiffness Gastrointestinal System: no appetite eating jello and yoghurt last 6 months, abdominal pain and loose stool since bypass 4-5 times per day. Genitourinary System: urinary hesitancy Nervous System: numbness in legs sometimes and headache Psychiatric History: Depressed Mood, sleep disturbance, decreased interest in previously en joyable activities, decreased energy, decreased or increased appetite, anxiety and social wi thdrawal Physical examination: BP 118/60 | Pulse 88 | Temp (Src) 98.8 F (37.1 C) (Oral) | Resp 16 | Ht 1.753 m (5' 9") | Wt 90.220 kg (198 lbs 14.4 oz) Body mass index is 29.37 kg/(m^2). General appearance: Overweight, appears healthy. Alert; in no acute distress. Flat affect . Pleasant. Mild pain distress. Cervical ROM: Flexion: <30 degrees painful pulling and tightness restricted Extension: <10 degrees painful Rotation/ext. right: painful Left:painful Shoulder ROM: restricted in the right shoulder with Neers and Baker Palpation: tenderness in the axial and paraspinal muscles of the neck and right shoulder gi rdle Impression: 721.0 Cervical Spondylosis without Myelopathy 959.2U Right shoulder rotator cuff strain 721.42 Spondylosis with Myelopathy, Lumbar Region 722.10H Herniated Lumbar Intervertebral Disc L4-5 346.90D Migraine Headache : made worse since being off oxycodone 311G Depression 729.1 Fibromyalgia syndrome 729.1 Recommendations/Plan: Total time 30 minute with greater than 50% spent in reviewing of chart, imaging and community health counselor ing/coordindation of care. 1. For the nerve sensitivity and pain patient instructed in a trial of Trileptal(Oxcarbazep ine) 150 mg, 1/2 tablet PO at bedtime if after three days no side effects increase to 1/2 ta blet twice a day X 7 days, then increase in 2-3 day intervals to 150 mg orally every 12hours . - Patient instructed to call clinic with any concerns or questions during this trial 2. Continue with Physical therapy and pain psychology as scheduled. 3. Get cervial spine x-ray done today - third floor radiology to assess for any pain pathol ogy contributing to her neck pain and headaches. 4. I referrenced a self help book for improving pain coping and adaptation called "Managing Pain Before It Manages You" by Mariama Canela as she had forgotten the authors name. 5. Follow up in two weeks to review imaiging results and medication management. 6. Patient agreed to follow up with Dr. Pagdett to furtheur evaluate reasons for bone loss and treat . 7. Follow up in two weeks or sooner if needed 8. To ensure appropriate care and safety for your patient, [facility] r equires a primary care provider while a patient is in our care. Also, before beginning any medication trials or prescribing we need to know if that provider would be willing to work with our recommendations and continue maintenance prescribing and monitoring once the patien t is stable. Would you be willing to provide ongoing maintenance prescribing and monitoring of your mehreen ent for their chronic pain management? Please indicate and fax your response to [phone]. I called and left a message on [facility] general voice mail requesting he call me to discuss prescribing and patient care. DELFINA MOLINA [facility] Pain Center Mail code CH 4P [facility] and [address] [address] aurav Tasha - 07/30/2006 7:35 AM PSTCMA History: PMH/PSH/SH/FH review 1. Has your pain changed from your last visit? increased 2. Do you have any new weakness or decrease in sensation? yes Weakness in legs and in hand s 3. Do you have any difficulty with [...] any diagnostic studies since your last appointment? Bone density 10. Do you require any medication refills today? no documented in this encounter Plan of Treatment Not on filedocumented as of this encounter Procedures + +--------+ + + + | Procedure Name | Priori | Date/Time | Associated Diagnosis | Comments | | | ty | | | | + +--------+ + + + | X-RAY SPINE CERVICAL | Routin | 07/30/2006 | Cervical | Results for this | | 3 VIEWS | e | 11:20 AM | Spondylosis without | procedure are in the | | | | PST | Myelopathy | results section. | + +--------+ + + + documented in this encounter Results SPINE CERVICAL 3 VIEWS (07/30/2006 11:20 AM PST) + + + + + + | Component | Value | Ref Range | Performed | Pathologist | | | | | At | Signature | + + + + + + | SPINE, | Radiologist 1: [place]LY[place], | | | | | CERVICAL, 3 | BECKY GRAYTUDY: | | | | | VIEWS | Cervical spine, AP, | | | | | | lateral, and odontoid | | | | | | views. DATE: 07/30/2006 | | | | | | COMPARISON: NONE | | | | | | FINDINGS: There is mild | | | | | | disc space narrowing at | | | | | | C3-4 through C6-7. | | | | | | There isno significant | | | | | | uncovertebral spurring. | | | | | | The facets | | | | | | articulatenormally and | | | | | | the spinous processes | | | | | | are intact. The | | | | | | odontoid isintact and | | | | | | the lateral masses are | | | | | | symmetric. The | | | | | | prevertebralsoft tissues | | | | | | are normal in | | | | | | thickness. IMPRESSION: | | | | | | 1. Mild disc space | | | | | | narrowing from C3-4 | | | | | | through C6-7. | | | | + + + + + + + + | Specimen | + + | | + + + +---------+ + + | Performing | Address | City/State/Zipcode | Phone Number | | Organization | | | | + +---------+ + + | [facility] DEPARTMENT OF | | | | | RADIOLOGY | | | | + +---------+ + + documented in this encounter Visit Diagnoses + + | Diagnosis | + + | Cervical spondylosis without myelopathy - Primary | + + | Right shoulder rotator cuff strain Injury, other and unspecified, shoulder and upper | | arm | + + | Spondylosis with myelopathy, lumbar region | + + | Herniated Lumbar Intervertebral Disc L4-5 Displacement of lumbar intervertebral disc | | without myelopathy | + + | Migraine headache Migraine, unspecified, without mention of intractable migraine | | without mention of status migrainosus | + + | Depression Depressive disorder, not elsewhere classified | + + | Fibromyalgia syndrome 729.1 Mylagia and myositis, unspecified | + + documented in this encounter
--- OUTSIDE RECORDS SUMMARY | ~2019-10-17 | XMS | Encounter Summary ---
Demographics + + + | Address | [address] | | | [place] [address] | + + + | Home Phone | | + + + | Preferred Language | Unknown | + + + | Marital Status | | + + + | Amish Affiliation | 1001 | + + + | Race | Unknown | + + + | Ethnic Group | Unknown | + + + Author + + + | Author | [facility] | | | and Jairana | + + + | Organization | [facility] | | | [...] Team Providers + +------+ + | Care Admissions Manager Name | Role | Phone | [...] | | | | | [address] | [address] [facility] | | | | | [place], [place] | [facility] [address] | | | | | [address] | [phone] | | | | | [phone] | | | +--------+ + + + [...] 12/18/17 1321 by | | lyssa | [id number] catheter system; | Jaye Bird, | Lucy [...] | | | | | | [place] [address] | | | | | | [phone] | | | | | | | | +--------+---------+ + + + | 12/20/ | Office | Audiology | Elisabet Munson MS | | | 2019 | Visit | | [facility] [address] | | | | | [address] [place] | | | | | | [place] [address] | | | | | | [phone] | | | | | | | | +--------+---------+ + + + | 12/20/ | Office | Otolaryngology | Ulysses Genao MD | | | 2019 | Visit | | [address] | | | | | | [address] [place], | | | | | | [place] [address] | | | | | | [phone] | | | | | | | [...]
--- OUTSIDE RECORDS SUMMARY | ~2019-10-17 | XMS | Encounter Summary ---
Demographics + + + | Address | [address] | | | [place] [address] | + + + | Home Phone [...] Team Providers + +------+ + | Care Podiatric Assistant Name | Role | Phone | [...] | | | | Clinical Nutrition | [place], [place] | | | | | [address] | [address] | | | | | Loop Mailcode: [id number] | [phone] | | | | | Outpatient Clinic | | | | | | [facility] | | | | | | [place] [address] | | | | | | [phone] | | | +--------+ + + + [...] | + + + + + | [facility] DEPARTMENT OF | [address] | [place] [address] | | | PATHOLOGY | [address] | | | + + + + + | [facility] DEPARTMENT OF | [address] | [place] [address] | | | PATHOLOGY | [address] [...] | + + + + + | [facility] | [address] | [place] [address] | | | PATHOLOGY | [address] | | | + + + + + | [facility] | [address] | [place] [address] | | | PATHOLOGY | [address] | | | + + + + + documented in this encounter Visit Diagnoses Not on filedocumented in this encounter"
--- OUTSIDE RECORDS SUMMARY | ~2019-10-17 | XMS | Encounter Summary ---
[...] Author + + + | Author | [facility] | + + + | Organization | [facility] | + + + | [...] Team Providers + +------+ + | Care Leather Patcher Name | Role | Phone | [...] Pavilion | | | | | | [place], [place] | | | | | | [address] | | | | | | [phone] | | | +--------+ + + + [...]
--- OUTSIDE RECORDS SUMMARY | ~2019-10-17 | XMS | Encounter Summary ---
Demographics + + + | Address | [address] | | | [place] [address] | + + + | Home Phone [...] Providers + +------+ + | Care Clinical Veterinarian Name | Role | Phone | + [...] + + | 01/18/ | Refill | [facility] | Alanis, | Medication Refill; | | 2018 | | MEDICINE [address] | MD [place] | Medication Refill | | | | [facility] | [address] [place] [address] | | | | | [place] [address] | [place] [address] | | | | | [phone] | [phone] | | | | | | | [...] | | | | | | [place] [address] | | | | | | [phone] | | | | | | | | +--------+---------+ + + + | 12/20/ | Office | Audiology | Elisabet Munson MS | | | 2019 | Visit | | [facility] [address] | | | | | [address] [place] [address] [place] | | | | | | [place] [address] | | | | | | [phone] | | | | | | | | +--------+---------+ + + + | 12/20/ | Office | Otolaryngology | Ulysses Genao MD | | | 2019 | Visit | | [address] | | | | | | [address] [place], | | | | | | [place] [address] | | | | | | [phone] | | | | | | | | +--------+---------+ + + + documented as of this encounter Visit Diagnoses Not on filedocumented in this encounter"
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
--- OUTSIDE RECORDS SUMMARY | ~2019-10-17 | XMS | Encounter Summary ---
Demographics + + + | Address | [address] | | | [place] [address] | + + + | Home Phone [...] Team Providers + +------+ + | Care Granulator Machine Operator Name | Role | Phone [...] [place] | | | | | MD [address] | [place] | | | | | | [address] | [address] Phone: | | | | | | [place], | [phone] | | | | | | [place] | Fax: | | | | | | [address] | [phone] | | | | | | Phone: | | | | | | | [phone] | | | | | | | Fax: | | | | | | | [phone] | | +--------+--------+ + + + + Encounter Details +--------+---------+ + + + | Date | Type | Department | Care Team | Description | +--------+---------+ + + + | 11/28/ | Office | [facility] | Carlos Hsieh | NO SHOW (Primary Dx) | | 2014 | Visit | PHYSIATRY [address] | [address], [address] | | | | [address] | [address] [place], [place] | | | | | [place], [place] | [address] | | | | | [address] | | | | | | [phone] | Joe, | | | | | | MARY Montero [address] | | | | | | [address] | | | | | | [place] [address] | | | | | | [phone] | | | | | | | [...] | | | | | [address] [facility] | | | | | | [place] [address] | | | | | | [phone] | | | | | | | | +--------+---------+ + + + | 12/20/ | Office | Audiology | Elisabet Munson MS | | 2019 | Visit | | [facility] [address] | | | | | | [place] [address] [address] | | | | | | [place] [address] | | | | | | [phone] | | | | | | | | +--------+---------+ + + + | 12/20/ | Office | Otolaryngology | Ulysses Genao MD | | | 2020 | Visit | | [address] | | | | | | [address] [place], | | | | | | [place] [address] | | | | | | [phone] | | | | | | | | +--------+---------+ + + + documented as of this encounter Visit Diagnoses + + | Diagnosis | + + | No Show - Primary Code used for vists where the patient is not seen | + + documented in this encounter"
--- OUTSIDE RECORDS SUMMARY | ~2019-10-17 | XMS | Encounter Summary ---
Demographics + + + | Address | [address] | | | [place] [address] | + + + | Home Phone | | + + + | Preferred Language | Unknown | + + + | Marital Status | | + + + | Hindu Affiliation | 1001 | + + + | Race | Unknown | + + + | Ethnic Group | Unknown | + + + Author + + + | Author | [facility] | | | and Jairana | + + + | Organization | [facility] | | | [...] Team Providers + +------+ + | Care President Trust Company Name | Role | Phone | + [...] + | 09/04/ | Refill | [facility] | Alanis, | Medication Refill | | 2018 | | MEDICINE [address] [place] [address] | MD Petrona | | | | | [facility] | [address] [place] [address] | | | | | [place] [address] | [place] [address] | | | | | [phone] | [phone] | | | | | | | [...] | | | | | [place] [address] | | | | | | [phone] | | | | | | | | +--------+---------+ + + + | 12/20/ | Office | Audiology | Elisabet Munson MS | | | 2019 | Visit | | [facility] [address] | | | | | | [place] [address] [place] | | | | | | [place] [address] | | | | | | [phone] | | | | | | | | +--------+---------+ + + + | 12/20/ | Office | Otolaryngology | Ulysses Genao MD | | | 2020 | Visit | | [address] [facility] | | | | | | [address] [place], | | | | | | [place] [address] | | | | | | [phone] | | | | | | | | +--------+---------+ + + + documented as of this encounter Visit Diagnoses Not on filedocumented in this encounter"
--- OUTSIDE RECORDS SUMMARY | ~2019-10-17 | XMS | Encounter Summary ---
Demographics + + + | Address | [address] | | | [place] [address] | + + + | Home Phone [...] Providers + +------+ + | Care Associate Engineer Name | Role | Phone | [...] Description | +--------+---------+ + + + | 02/16/ | Office | [facility] | HrCaitlin kaba, | Fibromyalgia | | 2006 | Visit | Rheumatology [address] | CORRESPONDENCE SPECIALIST | (Primary Dx); | | | | [address] Sharmila Schilling | | Fibromyalgia; | | | | Mailcode: [id number] | | Fibromyalgia | | | | Outpatient Clinic | | | | | | Building [place], | | | | | | [place] [address] | | | | | | [phone] | | | +--------+---------+ + + + [...] + | Blood Pressure | 100/60 | 02/16/2007 8:05 AM | | | | | PDT | | + + + + + | Pulse | 80 | 02/16/2007 8:05 AM | | | | | PDT [...] + + + + | Weight | 89.4 kg (197 lb 1.6 | 02/16/2007 8:05 AM | | | | oz) | PDT | | + + + + + | Height | - | - | | + + + + + | Body Mass Index | 29.11 | 01/11/2007 2:43 PM | | | | | PDT | | + + + + + documented in this encounter Progress Notes Caitlin Rivera - 02/16/2007 8:51 AM PDT Subjective: I periodically see Belinda Meehan for Fibromyalgia. Current issues are: Will have knee replacement in 2 weeks. It is a significant pain generator, and may reduce c entral sensitivity slightly once done. Periods of extreme abd discomfort- entire abd around to back. Seeing [facility] pain clinic. Fentanyl patch helped pain a lot, but she has been swimming outdoo rs and they would fall off. Oxycodone somewhat helpful. Current outpatient prescriptions Medication Cyanocobalamin 1,000 mcg/mL Injection Syringe Multivitamin Oral Tablet Risedronate Sodium (ACTONEL) 35 mg Oral Tablet Ferrous Sulfate 325 (65) mg Oral Tablet Docusate Sodium 100 mg Oral Tablet Oxycodone HCl (OXYCONTIN) 40 mg Oral Tablet Sustained Release 12 hr Oxycodone HCl 5 mg Oral Tablet Omeprazole (PRILOSEC) 20 mg Oral Capsule, Delayed Release(E.C.) LEVOTHYROXINE OR Oxcarbazepine (TRILEPTAL) 150 mg OR TABS Furosemide (LASIX) 80 mg OR TABS POTASSIUM CHLORIDE SR 20 MEQ TAB, PARTICLES/CRYSTALS PROMETHAZINE 25 MG TAB CALCIUM 600 WITH VITAMIN D OR VITAMIN C 500 MG CHEWABLE TAB Physical Exam: BP 100/60 | Pulse 80 | Wt 89.404 kg (197 lbs 1.6 oz). Hyperalgesic at the L1 dermatome over the low abd. Has MFTP demonstrated in the lateral border of the rectus there. Concurrent L1 paraspinous TP. Usual trap, lev scap and rhomboid TP's bilat Impression and Plan: MFTP's can follow myotomes and dermatomes. After injecting the paraspinous TP, the abd PT w as much less tender. Visceral pain can lead to hyperalgesia over the skin of the abd and als o to trigger points. All the trigger points listed in the objective section were injected using 0.5% procaine f or a total of 12 cc's. The injections were well tolerated, muscles softened and after care i nstructions were given. One researcher notes that patients with painful knee OA have more widespread pain sensitivi ty which disappears after surgery. I do not expect knee surgery to cure Belinda's FM, but it may help. documented in this encount er Plan of Treatment + + +--------+ + + | Name | Type | Priori | Associated Diagnoses | Order Schedule | | | | ty | | | + + +--------+ + + | HI INJECT TRIGGER | Procedures | Routin | Fibromyalgia | Ordered: 02/16/2007 | | POINTS, > 3 | | e | | | + + +--------+ + + | HI INJECT TRIGGER | Procedures | Routin | Fibromyalgia | Ordered: 02/16/2007 | | POINTS, > 3 | | e | Fibromyalgia | | + + +--------+ + + | HI INJECT TRIGGER | Procedures | Routin | Fibromyalgia | Ordered: 02/16/2007 | | POINTS, > 3 | | e | Fibromyalgia | | | | | | Fibromyalgia | | + + +--------+ + + documented as of this encounter Visit Diagnoses + + | Diagnosis | + + | Fibromyalgia - Primary Mylagia and myositis, unspecified | + + documented in this encounter"
--- OUTSIDE RECORDS SUMMARY | ~2019-10-17 | XMS | Encounter Summary ---
Demographics + + + | Address | [address] | | | [place] [address] | + + + | Home Phone [...] Team Providers + +------+ + | Care Sewer Contractor Name | Role | Phone | + +------+ + PCP | Unavailable | + +------+ + Encounter Details +--------+ + + + + | Date | Type | Department | Care Team | Description | +--------+ + + + + | 07/03/ | Office | | Note, Outpatient | [...] as of this encounter Progress Notes Interface, Otolaryngology Rep In - 07/09/2005 2:07 AM PST [id number] [facility] Date: 07/03/2005 Clinic: Ms. Vasquez continues to suffer from cramping abdominal pain, which she has now had for about 3 months. She has had a normal CAT scan of her GI, but with this pain, I feel that it is probably reasonable to do a laparoscopic exploration looking for any evidence of internal hernia. This is probably the only way that we will be able to determine if she has internal hernia. We will be scheduling her for this operation. Chris Padgett M.D. ROSA / [id number] / [id number] / [id number] / [id number] Electronically signed by Chris Padgett 07-08-2005 01:45:20 PM documented i n this encounter Plan of Treatment Not on filedocumented as of this encounter Visit Diagnoses Not on filedocumented in this encounter"
--- OUTSIDE RECORDS SUMMARY | ~2019-10-17 | XMS | Encounter Summary ---
Demographics + + + | Address | [address] | | | [place] [address] | + + + | Home Phone [...] Team Providers + +------+ + | Care Parachute Panel Joiner Name | Role | Phone | + [...] + + | 05/04/ | Refill | [facility] | Alanis, | Medication Refill | | 2016 | | MEDICINE [address] [place] [address] | MD Petrona | | | | | [facility] | [address] [place] [address] | | | | | [place] [address] | [place] [address] | | | | | [phone] | [phone] | | | | | | | [...] | | | | | | [place] [address] | | | | | | [phone] | | | | | | | | +--------+---------+ + + + | 12/20/ | Office | Audiology | Elisabet Munson MS | | | 2019 | Visit | | [facility] [address] | | | | | | [place] [address] [place] | | | | | | [place] [address] | | | | | | [phone] | | | | | | | | +--------+---------+ + + + | 12/20/ | Office | Otolaryngology | Ulysses Genao MD | | | 2020 | Visit | | [address] [facility] | | | | | | [address] [place], | | | | | | [place] [address] | | | | | | [phone] | | | | | | | | +--------+---------+ + + + documented as of this encounter Visit Diagnoses Not on filedocumented in this encounter"
--- OUTSIDE RECORDS SUMMARY | ~2019-10-17 | XMS | Encounter Summary ---
Demographics + + + | Address | [address] | | | [place] [address] | + + + | Home Phone [...] Team Providers + +------+ + | Care Waiter/Waitress Bar Name | Role | Phone | + +------+ + | Pedrito Gutierrez MD | PCP | | + +------+ + Reason for Visit + + + | Reason | Comments | + + + | Medication | rec's for weaning due to over use | | Adjustment | | + + + Encounter Details +--------+ + + + + | Date | Type | Department | Care Team | Description | +--------+ + + + + | 09/12/ | Telephone | [facility] | Miranda Lambert, | Medication | | 2009 | | Pain Center at | ANP | Adjustment (rec's | | | | [place] | | for weaning due to | | | | [address] | | over use) | | | | Mailcode: CH15P | | | | | | [facility] | | | | | | and Healing, | | | | | | Building | | | | | | Floor [place], [place] | | | | | | [address] | | | | | | [phone] | | | +--------+ + + + [...]
--- OUTSIDE RECORDS SUMMARY | ~2019-10-17 | XMS | Encounter Summary ---
Demographics + + + | Address | [address] | | | [place] [address] | + + + | Home Phone [...] Providers + +------+ + | Care Information Resources Manager Name | Role | Phone | + +------+ + | Petrona Thapa | PCP | | | MD | | | + +------+ + Encounter Details +--------+ + + + + | Date | Type | Department | Care Team | Description | +--------+ + + + + | 10/04/ | Documentati | [facility] | Alanis, | | | 2019 | on | MEDICINE [address] | MD Petrona | | | | | [address] [place] | [address] [facility] | | | | | [place] [address] | [place] [address] | | | | | [phone] | [phone] | | | | | | | [...] | | | | [address] [place] | | | | | | [place] [address] | | | | | | [phone] | | | | | | | | +--------+---------+ + + + | 12/20/ | Office | Audiology | Elisabet Munson MS | | | 2019 | Visit | | [facility] [address] | | | | | | [address] [place] | | | | | | [place] [address] | | | | | | [phone] | | | | | | | | +--------+---------+ + + + | 12/20/ | Office | Otolaryngology | Ulysses Genao MD | | | 2019 | Visit | | [address] | | | | | | [address] [place], | | | | | | [place] [address] | | | | | | [phone] | | | | | | | | +--------+---------+ + + + documented as of this encounter Visit Diagnoses Not on filedocumented in this encounter"
--- OUTSIDE RECORDS SUMMARY | ~2019-10-17 | XMS | Encounter Summary ---
Demographics + + + | Address | [address] | | | [place] [address] | + + + | Home Phone [...] Providers + +------+ + | Care Special Effects Specialist Name | Role | Phone | + +------+ + | Pedrito Gutierrez MD | PCP | | + +------+ + Reason for Visit + + + | Reason | Comments | + + + | Referral Needed | Referral to Urologist | + + + Encounter Details +--------+ + + + + | Date | Type | Department | Care Team | Description | +--------+ + + + + | 01/24/ | Telephone | [facility] | Chris Padgett, | Referral Needed | | 2007 | | Center [address] | [address] | (Referral to | | | | Avjennifer Mailcode: CH4S | [address] | Urologist) | | | | [facility] | [place], [place] | | | | | and [place], | [address] | | | | | [facility] | [phone] | | | | | [place], [place] | | | | | | [address] | | | | | | [phone] | | | +--------+ + + + [...]
--- OUTSIDE RECORDS SUMMARY | ~2019-10-17 | XMS | Encounter Summary ---
Demographics + + + | Address | [address] | | | [place] [address] | + + + | Home Phone | | + + + | Preferred Language | Unknown | + + + | Marital Status | | + + + | Synagogue Affiliation | 1001 | + + + | Race | Unknown | + + + | Ethnic Group | Unknown | + + + Author + + + | Author | [facility] | | | and Jairana | + + + | Organization | [facility] | | | [...] Team Providers + +------+ + | Care Sand Polisher Name | Role | Phone | + [...] + + | 01/21/ | Telephone | [facility] | Alanis, | Pain | | 2019 | | MEDICINE [address] [place] [address] | MD Petrona | | | | | [facility] | [address] [place] [address] | | | | | [place] [address] | [place] [address] | | | | | [phone] | [phone] | | | | | | | [...] Petrona | | | | | | [facility] [address] | | | | | | [place] [address] | | | | | | [phone] | | | | | | | | +--------+---------+ + + + | 12/20/ | Office | Audiology | Elisabet Munson MS | | | 2019 | Visit | | [facility] [address] | | | | | | [place] [address] [address] | | | | | | [place] [address] | | | | | | [phone] | | | | | | | | +--------+---------+ + + + | 12/20/ | Office | Otolaryngology | Ulysses Genao MD | | | 2019 | Visit | | [address] [facility] | | | | | | [address] [place], | | | | | | [place] [address] | | | | | | [phone] | | | | | | | | +--------+---------+ + + + documented as of this encounter Visit Diagnoses Not on filedocumented in this encounter"
--- OUTSIDE RECORDS SUMMARY | ~2019-10-17 | XMS | Encounter Summary ---
Demographics + + + | Address | [address] | | | [place] [address] | + + + | Home Phone [...] Team Providers + +------+ + | Care Speech Writer Name | Role | Phone | + +------+ + | Sulaiman Carrera MD | PCP | | + +------+ + Encounter Details +--------+ + + + + | Date | Type | Department | Care Team | Description | +--------+ + + + + | 12/05/ | Ancillary | Registration [address] | Chris Padgett, | | | 2004 | Registratio | [address] | [address] | | | | n | Peterson Mailcode: RPB07 | [address] | | | | | [place], [place] | [place], [place] | | | | | [address] | [address] | | | | | [phone] | [phone] | | | | | | | [...]
--- OUTSIDE RECORDS SUMMARY | ~2019-10-17 | XMS | Encounter Summary ---
Demographics + + + | Address | [address] | | | [place] [address] | + + + | Home Phone [...] Team Providers + +------+ + | Care Nurses Medical Assistants Phlebotomists Name | Role | Phone | + +------+ + | Pedrito Gutierrez MD | PCP | | + +------+ + Encounter Details +--------+---------+ + + + | Date | Type | Department | Care Team | Description | +--------+---------+ + + + | 02/01/ | Office | Digestive Health | Chris Padgett, | Status Post | | 2006 | Visit | [facility] [address] | [address] | Bariatric Surgery; | | | | Ave Mailcode: [facility] | [address] | Follow-Up | | | | [facility] | [place], [place] | Examination | | | | and Healing, | [address] | Following Surgery | | | | Building | [phone] | | | | | Floor [place], [place] | | | | | | [address] | | | | | | [phone] | | | +--------+---------+ + + + [...] history of intermittent abdominal pain comes to [facility] for 3 mo f/u evaluation with [...]
--- OUTSIDE RECORDS SUMMARY | ~2019-10-17 | XMS | Encounter Summary ---
Demographics + + + | Address | [address] | | | [place] [address] | + + + | Home Phone [...] Team Providers + +------+ + | Care Bi Tester Name | Role | Phone | [...] pneumonia, | | | | Avjennifer Mailcode: [facility] | [address] | wants to get back on | | | | [facility] | [place], [place] | vitamins) | | | | and Healing, | [address] | | | | | [place] [address] [facility] | [phone] | | | | | Floor [place], [place] | | | | | | [address] | | | | | | [phone] | | | +--------+ + + + [...]
--- OUTSIDE RECORDS SUMMARY | ~2019-10-17 | XMS | Encounter Summary ---
Demographics + + + | Address | [address] | | | [place] [address] | + + + | Home Phone [...] Providers + +------+ + | Care Manager Package Name | Role | Phone | + [...] | Visit | [facility] [address] | HAULING CONTRACTOR | syndrome [address] | | | | [address] | | (Primary Dx); | | | | Physician's | | Fibromyalgia | | | | Pavilion, 4th Floor | | | | | | [place], [place] | | | | | | [address] | | | | | | [phone] | | | +--------+---------+ + + + [...] | + + +--------+ + + | CT INJECT TRIGGER | Procedures | Routin | [...]
--- OUTSIDE RECORDS SUMMARY | ~2019-10-17 | XMS | Encounter Summary ---
Demographics + + + | Address | [address] | | | [place] [address] | + + + | Home Phone [...] Team Providers + +------+ + | Care Production Line Operator Name | Role | Phone | [...] + + | 12/10/ | Office | [facility] | Alanis, | Elevated liver | | 2018 | Visit | MEDICINE [address] | MD Petrona | enzymes (Primary | | | | [address] [place] | [address] [facility] | Dx); Limb cramps; | | | | [place] [address] | [place] [address] | Physical | | | | [phone] | [phone] | deconditioning; | | | | | [...] + | Blood Pressure | 104/60 | 12/10/2017 9:16 AM | | | | | PDT | | + + + + + | Pulse | 54 | 12/10/2017 9:16 AM | | | | | PDT | | + + + + + | Temperature | 36.5 C (97.7 F) | 12/10/2017 9:16 AM | | | | | PDT | | + + + + + | Respiratory Rate | 16 | 12/10/2017 9:16 AM | | | | | PDT | | + + + + + | Oxygen Saturation | 95% | 12/10/2017 9:16 AM | | | | | PDT | | + + + + + | Inhaled Oxygen | - | - | | | Concentration | | | | + + + + + | Weight | 101.1 kg (222 lb | 12/10/2017 9:16 AM | | | | 14.2 oz) | PDT | | + + + + + | Height | - | - | | + + + + + | Body Mass Index | 33.89 | 11/17/2017 10:49 AM | | | | | PDT | | + + + + + documented in this encounter Progress Notes Maggie Montoya LPN - 12/10/2017 9:30 AM PDT Administrations This Visit cyanocobalamin (VITAMIN B-12) injection 1,000 mcg Admin Date 12/10/2017 Action Given Dose 1000 mcg Route Intramuscular Administered By Maggie Montoya LPN Vitamin B12 1000mcg given IM Left deltoid. Patient tolerated injection well. Sulaiman Johnston MD - 12/10/2017 9:30 AM PDTFormatting of this note might be different from the origi nal. CHIEF COMPLAINT Chief Complaint Patient presents with Edema 1 month Medication Refill Abdominal Pain Spasms legs and hips [facility] Belinda Meehan is a 57 y.o. [...] is interested in doing physical therapy in [place], pool therapy has helped in the pas [...] (See Comments) Confused and questionable for seizures Zihokopzqo-Awic-Lwzzswyy Cephalexin Hives Duloxetine Migraines and nausea Ketorolac Hives Morphine Swelling Ropinirole Hcl Hives Tramadol Hcl Nausea Only Tcjmlgnbov-Hist-Azsthwyu Hives and Rash Ciprofloxacin Hives and Rash [...] Note: Parts of this documentwere created using writewith speech recognition software. As a r esult, there may be unintended word spelling errors. Every attempt was made to correct the dictation. [email or web address] d in this encounter Plan of Treatment +--------+---------+ + + + | Date | Type | Specialty | Care Team | Description | +--------+---------+ + + + | 11/14/ | Office | Internal Medicine | Alanis, | | | 2019 | Visit | | MD Petrona | | | | | | [address] [place] [address] | | | | | | [place] [address] | | | | | | [phone] | | | | | | | | +--------+---------+ + + + | 12/20/ | Office | Audiology | Elisabet Munson MS | | | 2019 | Visit | | [facility] [address] | | | | | | [address] [place] | | | | | | [place] [address] | | | | | | [phone] | | | | | | | | +--------+---------+ + + + | 12/20/ | Office | Otolaryngology | Ulysses Genao MD | | | 2019 | Visit | | [address] | | | | | | [address] [place], | | | | | | [place] [address] | | | | | | [phone] | | | | | | | [...] 12/10/2017, Expires: | | | | | | 12/10/2018 | + +---------+--------+ + + documented as [...] encounter Results IMAGING REPORT - EXTERNAL SCAN (12/28/2017 12:00 AM PDT) + + + | Narrative | Performed At | + + + | Ordered by an | | | unspecified provider. | | + + + Potassium (12/10/2017 10:30 AM PDT) + +-------+ + + + | Component | Value | Ref Range | Performed | Pathologist | | | | | At | Signature | + +-------+ + + + | K | 4.1 | 3.5 - 5.1 | [facility] | | | | | mmol/L | . NATHAN | | | | | | [...] [address] | [place] | [phone] | | [facility] | | [address] | | | - LABORATORY | | | | + + + + + Magnesium (12/10/2017 10:30 AM PDT) + +-------+ + + + | Component | Value | Ref Range | Performed | Pathologist | | | | | At | Signature | + +-------+ + + + | Magnesium | 2.4 | 1.8 - 2.5 mg/dL | [facility] | | | | | | STYudy [...] [address] | [place] | [phone] | | [facility] | | [address] | | | - LABORATORY | | | | + + + + + Hepatitis C Ab (12/10/2017 10:30 AM PDT) + + + + + + | Component | Value | Ref Range | Performed | Pathologist | | | | | At | Signature | + + + + + + | Hepatitis C | 0.3Comment: | 0.0 - 0.9 s/co | REFERENCE | | | Ab | | ratio | LAB [facility] | | | | Negative: | | - [facility] | | | | < 0.8 | | | | | | | | | | | | Indeterminate: | | | | | | 0.8 - 0.9 | | | | | | | | | | | | Positive: | | | | | | > 0.9 The CDC | | | | | | recommends that a | | | | | | positive HCV antibody | | | | | | result be followed up | | | | | | with a HCV Nucleic Acid | | | | | | Amplification test | | | | | | ([id number]). | | | | + + + + + + + + | Specimen | + + | Blood | + + + + + | Narrative | Performed At | + + + | Performed at: [address] [place] [address], | REFERENCE LAB | | [place], [place] [id number] Negotiations Director: Bandar Gan MD, Phone: | [facility] | | [phone] | | + + + + + + + + | Performing | Address | City/State/Zipcode | Phone Number | | Organization | | | | + + + + + | REFERENCE LAB | [address] | [place], [place] | [phone] | | [facility] | [place] | [address] | | + + + + + documented in this encounter Visit Diagnoses + + | Diagnosis | + + | Elevated liver enzymes - Primary Nonspecific elevation of levels of transaminase or | | lactic acid dehydrogenase (LDH) | + + | Limb cramps Cramp of limb | + + | Physical deconditioning Debility, unspecified | + + | Chronic bilateral low back pain without sciatica | + + | Primary osteoarthritis of both knees Primary localized osteoarthrosis, lower leg | + + documented in [...] | | First dose on [facility] 10/15/17 at 1215 | | | [...]
--- OUTSIDE RECORDS SUMMARY | ~2019-10-17 | XMS | Encounter Summary ---
Demographics + + + | Address | [address] | | | [place] [address] | + + + | Home Phone [...] Team Providers + +------+ + | Care Tacker Elastic Band Name | Role | Phone | + +------+ + | Pedrito Gutierrez MD | PCP | | + +------+ + Encounter Details +--------+---------+ + + + | Date | Type | Department | Care Team | Description | +--------+---------+ + + + | 07/30/ | Office | Digestive Health | Eliezer Ruano, | Abdominal Pain | | 2006 | Visit | [place] [address] | [address] | (Primary Dx) | | | | Ave Mailcode: [facility] | [address] | | | | | [facility] | [facility] [place] | | | | | and Healing, | [address] | | | | | [facility] 1, 6th | [phone] | | | | | Floor [place], [place] | | | | | | [address] | | | | | | [phone] | | | +--------+---------+ + + + [...] [facility] [address] [facility], 6th [place] [address] alena Palacio - 07/30 4:09 PM PSTS: [...]
--- OUTSIDE RECORDS SUMMARY | ~2019-10-17 | XMS | Encounter Summary ---
Demographics + + + | Address | [address] | | | [place] [address] | + + + | Home Phone [...] Team Providers + +------+ + | Care Plastic Cablemaking Machine Operator Name | Role | Phone | + +------+ + | Petrona Thapa | PCP | | | MD | | | + +------+ + Reason for Visit + + + | Reason | Comments | + + + | Personal Problem | Rash in private area | + + + Encounter Details +--------+ + + + + | Date | Type | Department | Care Team | Description | +--------+ + + + + | 08/03/ | Telephone | [facility] | Alanis, | Personal Problem | | 2019 | | MEDICINE [address] [place] [address] | MD Petrona | (Rash in private | | | | [facility] | [address] [facility] | [facility]) | | | | [place] [address] | [place] [address] | | | | | [phone] | [phone] | | | | | | | [...] | | | | | [place] [address] | | | | | | [phone] | | | | | | | | +--------+---------+ + + + | 12/20/ | Office | Audiology | Elisabet Munson MS | | | 2019 | Visit | | [facility] [address] | | | | | [address] [place] | | | | | | [place] [address] | | | | | | [phone] | | | | | | | | +--------+---------+ + + + | 12/20/ | Office | Otolaryngology | Ulysses Genao MD | | | 2019 | Visit | | [address] | | | | | | [address] [place], | | | | | | [place] [address] | | | | | | [phone] | | | | | | | | +--------+---------+ + + + documented as of this encounter Visit Diagnoses Not on filedocumented in this encounter"
--- OUTSIDE RECORDS SUMMARY | ~2019-10-17 | XMS | Encounter Summary ---
Demographics + + + | Address | [address] | | | [place] [address] | + + + | Home Phone [...] Providers + +------+ + | Care Heel Curver Name | Role | Phone | + [...] + + | 08/01/ | Telephone | [facility] | Beto Meeks MD | Lab findings, | | 2008 | | [facility] | [address] | teaching, guidance, | | | | [facility] | [place], [place] | and counseling | | | | [address] | [address] | | | | | [address] | [phone] | | | | | Phys[facility] Pavilion | | | | | | Physician's | | | | | | Pavilion [place], | | | | | | [place] [address] | | | | | | [phone] | | | +--------+ + + + [...] + | VITAMIN D, | Routin | 07/28/2008 | Iron Deficiency | Results for this | | 25-HYDROXY, SERUM | e | 2:05 PM | | procedure are in the | | | | PST | | results section. | + +--------+ + + + | PTH, SERUM | Routin | 07/28/2008 | Iron Deficiency | Results for this | | | e | 2:05 PM | | procedure are in the | | | | PST | | results section. | + +--------+ + + + | IRON AND TIBC, SERUM | Routin | 07/28/2008 | Iron Deficiency | Results for this | | | e | 2:05 PM | | procedure are in the | | | | PST | | results section. | + +--------+ + + + | CALCIUM, PLASMA | Routin | 07/28/2008 | Iron Deficiency | Results for this | | | e | 2:05 PM | | procedure are in the | | | | PST | | results section. | + +--------+ + + + documented in this encounter Results PTH, SERUM (07/28/2008 2:05 PM PST) + +-------+ + + + | Component | Value | Ref Range | Performed | Pathologist | | | | | At | Signature | + +-------+ + + + | PTH, SERUM | 49 | 12 - 65 pg/mL | NON [facility] | | | | | | LAB | | + +-------+ + + + + + | Specimen | + + | Blood - Blood | + + + +---------+ + + | Performing | Address | City/State/Zipcode | Phone Number | | Organization | | | | + +---------+ + + | NON [facility] | | | | + +---------+ + + CALCIUM, PLASMA (07/28/2008 2:05 PM PST) + +-------+ + + + | Component | Value | Ref Range | Performed | Pathologist | | | | | At | Signature | + +-------+ + + + | CALCIUM, | 9.4 | 8.5 - 10.5 | NON [facility] | | | PLASMA | | mg/dL | LAB | | | (LAB) | | | | | + +-------+ + + + + + | Specimen | + + | Blood - Blood | + + + +---------+ + + | Performing | Address | City/State/Zipcode | Phone Number | | Organization | | | | + +---------+ + + | NON [facility] | | | | + +---------+ + + VITAMIN D, 25-HYDROXY, SERUM (07/28/2008 2:05 PM PST) + +-------+ + + + | Component | Value | Ref Range | Performed | Pathologist | | | | | At | Signature | + +-------+ + + + | VITAMIN D | 52 | 30 - 100 ng/mL | NON [facility] | | | 25 HYDROXY | | | LAB | | + +-------+ + + + + + | Specimen | + + | Blood - Blood | + + + +---------+ + + | Performing | Address | City/State/Zipcode | Phone Number | | Organization | | | | + +---------+ + + | NON [facility] | | | | + +---------+ + + IRON AND TIBC, SERUM (07/28/2008 2:05 PM PST) + + + + + + | Component | Value | Ref Range | Performed | Pathologist | | | | | At | Signature | + + + + + + | IRON SERUM | 89 | 37 - 160 ug/dL | NON [facility] | | | | | | LAB | | + + + + + + | IRON BIND | 431 (A)Comment: % | 245 - 400 ug/dL | NON [facility] | | | CAP SERUM | saturation is 20.6 | | LAB | | | | normal is 20-55 | | | | + + + + + + + + | Specimen | + + | Blood - Blood | + + + +---------+ + + | Performing | Address | City/State/Zipcode | Phone Number | | Organization | | | | + +---------+ + + | NON [facility] | | | | + +---------+ + + documented in this encounter Visit Diagnoses + + | Diagnosis | + + | Iron deficiency - Primary Other disorders of iron metabolism | + + documented in this encounter"
--- OUTSIDE RECORDS SUMMARY | ~2019-10-17 | XMS | Encounter Summary ---
Demographics + + + | Address | [address] | | | [place] [address] | + + + | Home Phone [...] Team Providers + +------+ + | Care Valet Parking Attendant Name | Role | Phone | [...] | and counseling | | | | [facility] | [place], [place] | (08/28/08 Lab | | | | and Healing, | [address] | results) | | | | [place] [address] [facility] | [phone] | | | | | [place], [place] | | | | | | [address] | | | | | | [phone] | | | +--------+ + + + [...]
--- OUTSIDE RECORDS SUMMARY | ~2019-10-17 | XMS | Encounter Summary ---
Demographics + + + | Address | [address] | | | [place] [address] | + + + | Home Phone [...] Team Providers + +------+ + | Care Gelatin Dynamite Packing Operator Name | Role | Phone | [...] | Other | | 2008 | | [place] [address] | [address] | | | | | [place] Mailcode: [facility] | [address] | | | | | [facility] | [place], [place] | | | | | and Healing, | [address] | | | | | [place] [address], [facility] | [phone] | | | | | Floor [place], [place] | | | | | | [address] | | | | | | [phone] | | | +--------+ + + + [...]
--- OUTSIDE RECORDS SUMMARY | ~2019-10-17 | XMS | Encounter Summary ---
Demographics + + + | Address | [address] | | | [place] [address] | + + + | Home Phone [...] Team Providers + +------+ + | Care Malt Liquors Sales Supervisor Name | Role | Phone | [...] | | | [facility] | [place], [place] | | | | | [address] | [address] | | | | | [address] | [phone] | | | | | Physician's Pavilion | | | | | | Physician's | | | | | | Pavilion [place], | | | | | | [place] [address] | | | | | | [phone] | | | +--------+--------+ + + + [...]
--- OUTSIDE RECORDS SUMMARY | ~2019-10-17 | XMS | Encounter Summary ---
Demographics + + + | Address | [address] | | | [place] [address] | + + + | Home Phone [...] Providers + +------+ + | Care It Service Manager Name | Role | Phone | [...] | | | | | hemorrhoid | [place], [place] | [address] | | | | | Rectal pain | [address] | [facility] | | | | | Procedures | | Rd [place], | | | | | CONSULT TO | | [place] | | | | | COLORECTAL | | [address] | | | | | SURGERY | | Phone: | | | | | | | [phone] | | | | | | | Fax: | | | | | | | [phone] | +--------+--------+ + + + + Encounter Details +--------+---------+ + + + | Date | Type | Department | Care Team | Description | +--------+---------+ + + + | 10/03/ | Office | Digestive Health | Bandar Valenzuela, | Anal or Rectal Pain | | 2008 | Visit | [facility] [address] | [address] | (Primary Dx) | | | | [address] | [address] | | | | | Mailcode: Center | [place], [place] | | | | | [facility] and | [address] | | | | | [facility] | [phone] | | | | | [place], [place] | | | | | | [address] | | | | | | [phone] | | | +--------+---------+ + + + [...] stool. She had a normal colonoscopy at [facility] in 2005 PMH: Past Medical History [...] 08/2007 right knee Hx lumbar fusion 05/2008 [id number] with bone spur removals Hx appendectomy Hx [...] Morphine IM ( only in [facility]) made gut pain worse 08/27/06: Trial of oral MSIR caused leg swelling Clarithromycin Hives Mainly in the legs Gjkvhzj-kvzpxojpql-kir-caff Balance problems Amitriptyline Grand mal seizures SH: [...] + + +--------+ + + | [facility] | Procedures | Routin | Anal or Rectal | Ordered: 10/05/2008 | | ANOSCOPY | | e | Pain | | + + +--------+ + + documented as of this encounter Visit Diagnoses + + | Diagnosis | + + | Anal or rectal pain - Primary | + + documented in this encounter
--- OUTSIDE RECORDS SUMMARY | ~2019-10-17 | XMS | Encounter Summary ---
Demographics + + + | Address | [address] | | | [place] [address] | + + + | Home Phone [...] Team Providers + +------+ + | Care Journeyman Electrician Name | Role | Phone | + +------+ + | Petrona Thapa | PCP | | | MD | | | + +------+ + Reason for Visit +--------+ + | Reason | Comments | +--------+ + | Other | B12 shot | +--------+ + Encounter Details +--------+ + + + + | Date | Type | Department | Care Team | Description | +--------+ + + + + | 02/01/ | Telephone | [facility] | Alanis, | Other (B12 shot) | | 2017 | | MEDICINE [address] [place] [address] | MD Petrona | | | | | [facility] | [address] [place] [address] | | | | | [place] [address] | [place] [address] | | | | | [phone] | [phone] | | | | | | | [...] | | | | | [place] [address] | | | | | | [phone] | | | | | | | | +--------+---------+ + + + | 12/20/ | Office | Audiology | Elisabet Munson MS | | | 2019 | Visit | | [facility] [address] | | | | | | [address] [place] [place] | | | | | | [place] [address] | | | | | | [phone] | | | | | | | | +--------+---------+ + + + | 12/20/ | Office | Otolaryngology | Ulysses Genao MD | | | 2020 | Visit | | [address] | | | | | | [address] [place], | | | | | | [place] [address] | | | | | | [phone] | | | | | | | | +--------+---------+ + + + documented as of this encounter Visit Diagnoses Not on filedocumented in this encounter"
--- OUTSIDE RECORDS SUMMARY | ~2019-10-17 | XMS | Encounter Summary ---
Demographics + + + | Address | [address] | | | [place] [address] | + + + | Home Phone | | + + + | Preferred Language | Unknown | + + + | Marital Status | | + + + | Jewish Affiliation | 1001 | + + + | Race | Unknown | + + + | Ethnic Group | Unknown | + + + Author + + + | Author | [facility] | | | and Jairana | + + + | Organization | [facility] | | [...] Team Providers + +------+ + | Care Outsole Handler Name | Role | Phone | [...] | Specialty | Otolaryngolog | Diagnoses | [place], | [facility] | | | Services | y | Benign | Ulysses Lau MD | HOSPITAL | | | Required | | paroxysmal | [address] | [address] | | | | | positional | [address] | [address] | | | | | vertigo, | [place] | [place], [place] | | | | | unspecified | [place], [place] | [address] | | | | | laterality | [address] | Phone: | | | | | | Phone: | [phone] | | | | | | [phone] | Fax: | | | | | | Fax: | [phone] | | | | | | [phone] | | +--------+ + + + + + Encounter Details +--------+ + + + + | Date | Type | Department | Care Team | Description | +--------+ + + + + | 12/22/ | Orders Only | [facility] | Ulysses Genao MD | Benign paroxysmal | | 2019 | | OTOLARYNGOLOGY [address] | [address] | positional vertigo, | | | | [address] | [address] [place], | unspecified | | | | [place], [place] | [place] [address] | laterality (Primary | | | | [address] | [phone] | Dx) | | | | [phone] | | | +--------+ + + + [...] | | | | | [place] [address] | | | | | | [phone] | | | | | | | | +--------+---------+ + + + | 12/20/ | Office | Audiology | Elisabet Munson MS | | | 2019 | Visit | | [facility] [address] | | | | | | [address] [place] | | | | | | [place] [address] | | | | | | [phone] | | | | | | | | +--------+---------+ + + + | 12/20/ | Office | Otolaryngology | Ulysses Genao MD | | | 2019 | Visit | | [address] | | | | | | [address] [place], | | | | | | [place] [address] | | | | | | [phone] | | | | | | | | +--------+---------+ + + + + + +--------+ + + | Name | Type | Priori | Associated Diagnoses | Order Schedule | | | | ty | | | + + +--------+ + + | * [facility] | Outpatient | Routin | Benign paroxysmal | Ordered: 12/22/2018 | | Otolaryngology - AMB | Referral | e | positional vertigo, | | | Referral | | | unspecified | | | | | | laterality | | + + +--------+ + + documented as of this encounter Visit Diagnoses + + | Diagnosis | + + | Benign paroxysmal positional vertigo, unspecified laterality - Primary | + + documented in this encounter"
--- OUTSIDE RECORDS SUMMARY | ~2019-10-17 | XMS | Encounter Summary ---
Demographics + + + | Address | [address] | | | [place] [address] | + + + | Home Phone [...] Providers + +------+ + | Care Wood Finisher Apprentice Name | Role | Phone | + +------+ + | Petrona Thapa | PCP | | | MD | | | + +------+ + Encounter Details +--------+ + + + + | Date | Type | Department | Care Team | Description | +--------+ + + + + | 05/10/ | Orders Only | [facility] | Alanis, | Chronic bilateral | | 2017 | | MEDICINE [address] | MD Petrona | low back pain with | | | | [address] [place] | [address] [facility] | left-sided sciatica | | | | [place] [address] | [place] [address] | (Primary Dx) | | | | [phone] | [phone] | | | | | | | [...] | | | | | [place] [address] | | | | | | [phone] | | | | | | | | +--------+---------+ + + + | 12/20/ | Office | Audiology | Elisabet Munson MS | | | 2019 | Visit | | [facility] | | | | | | [place] [address] [address] | | | | | | [place] [address] | | | | | | [phone] | | | | | | | | +--------+---------+ + + + | 12/20/ | Office | Otolaryngology | Ulysses Genao MD | | | 2019 | Visit | | [address] [facility] | | | | | | [address] [place], | | | | | | [place] [address] | | | | | | [phone] | | | | | | | [...]
--- OUTSIDE RECORDS SUMMARY | ~2019-10-17 | XMS | Encounter Summary ---
Demographics + + + | Address | [address] | | | [place] [address] | + + + | Home Phone [...] Team Providers + +------+ + | Care American Sign Language Teacher Name | Role | Phone | [...] | | Audiology | Diagnoses | | Jeimy, | | | | | | | MS Elisabet | | | | | Vertigo/Medi | | [facility] [address] | | | | | care/Emmy | | [address] | | | | | /Self | | [address] [place] | | | | | Procedures | | [place] | | | | | OFFICE VISIT | | [address] Phone: | | | | | REGULAR | | [phone] | | | | | | | Fax: | | | | | | | [phone] | +--------+--------+ + + + + Encounter Details +--------+---------+ + + + | Date | Type | Department | Care Team | Description | +--------+---------+ + + + | 12/30/ | Office | [facility] | Elisabet Munson MS | Subjective tinnitus | | 2018 | Visit | AUDIOLOGY AND | [facility] [address] | of left ear (Primary | | | | [facility] | [address] [place] | Dx) | | | | [address] | [place] [address] | | | | | [address] [place] | [phone] | | | | | [place] [address] | | | | | | [phone] | | | +--------+---------+ + + + [...] Progress Notes Elisabet Munson, [facility] - 12/30/2017 1:30 PM PDTReferring Provider: Petrona singh M.D. Ms. Meehan is troubled by and echoing [...] | | | | | | [address] [place] [address] | | | | | | [place] [address] | | | | | | [phone] | | | | | | | | +--------+---------+ + + + | 12/20/ | Office | Audiology | Elisabet Munson MS | | | 2019 | Visit | | [facility] [address] | | | | | | [address] [place] | | | | | | [place] [address] | | | | | | [phone] | | | | | | | | +--------+---------+ + + + | 12/20/ | Office | Otolaryngology | Ulysses Genao MD | | | 2019 | Visit | | [address] | | | | | | [address] [place], | | | | | | [place] [address] | | | | | | [phone] | | | | | | | [...] encounter Results DIAGNOSTIC REPORT - EXTERNAL SCAN (12/30/2017 12:00 AM PDT) + + + | Narrative | Performed At | + + + | Ordered by an | | | unspecified provider. | | + + + documented in this encounter Visit Diagnoses + + | Diagnosis | + + | Subjective tinnitus of left ear - Primary | + + documented in this encounter"
--- OUTSIDE RECORDS SUMMARY | ~2019-10-17 | XMS | Encounter Summary ---
Demographics + + + | Address | [address] | | | [place] [address] | + + + | Home Phone [...] Team Providers + +------+ + | Care Felt Cementer Name | Role | Phone | + [...] + + | 03/28/ | Refill | [facility] | Alanis, | Medication Refill | | 2016 | | MEDICINE [address] [place] [address] | MD Petrona | | | | | [facility] | [address] [place] [address] | | | | | [place] [address] | [place] [address] | | | | | [phone] | [phone] | | | | | | | [...] | | | | | | [place] [address] | | | | | | [phone] | | | | | | | | +--------+---------+ + + + | 12/20/ | Office | Audiology | Elisabet Munson MS | | | 2019 | Visit | | [facility] [address] | | | | | | [place] [address] [place] | | | | | | [place] [address] | | | | | | [phone] | | | | | | | | +--------+---------+ + + + | 12/20/ | Office | Otolaryngology | Ulysses Genao MD | | | 2020 | Visit | | [address] [facility] | | | | | | [address] [place], | | | | | | [place] [address] | | | | | | [phone] | | | | | | | | +--------+---------+ + + + documented as of this encounter Visit Diagnoses Not on filedocumented in this encounter"
--- OUTSIDE RECORDS SUMMARY | ~2019-10-17 | XMS | Encounter Summary ---
Demographics + + + | Address | [address] | | | [place] [address] | + + + | Home Phone [...] Team Providers + +------+ + | Care Coater Carbon Paper Name | Role | Phone | + [...] floor | | | | | | [place], [place] | | | | | | [address] | | | | | | [phone] | | | +--------+------+ + + + [...] [facility] | [address] | [place] [address] | | | PATHOLOGY | [address] | | | + + + + + | [facility] | [address] | [place] [address] | | | PATHOLOGY | [address] [...] Performed At | + + + | [id number] Estimated GFR > 60 mL/min/1.73 sq m if non- | [facility] | | [place] [id number] Estimated GFR > 60 mL/min/1.73 sq m if | DEPARTMENT OF | | [place] GFR is estimated using the MDRD equation [...] | + + + + + | [facility] DEPARTMENT | [address] | [place] [address] | | | PATHOLOGY | [address] | | | + + + + + | [facility] | [address] | [place] [address] | | | PATHOLOGY | [address] [...] [facility] ([facility]) | | | [facility] [place] [address] [address] | | | [place] [address] | | + + + + + + + + | Performing | Address | City/State/Zipcode | Phone Number | | Organization | | | | + + + + + | [facility] | [address] | [place] [address] | | | LABORATORY | | | [...] RLB ([facility]) | | | [facility] [place] [address] | | | [place] [address] | | + + + + + + + + | Performing | Address | City/State/Zipcode | Phone Number | | Organization | | | | + + + + + | [facility] | [address] | [place] [address] | | | LABORATORY | | | | + + + + + documented in this encounter Visit Diagnoses + + | Diagnosis | + + | Hypothyroidism Unspecified hypothyroidism | + + | Edema | + + documented in this encounter"
--- OUTSIDE RECORDS SUMMARY | ~2019-10-17 | XMS | Encounter Summary ---
Demographics + + + | Address | [address] | | | [place] [address] | + + + | Home Phone [...] Team Providers + +------+ + | Care Optical Instrument Specialist Name | Role | Phone | [...] | - Disregard | | | | [facility] | | | | | | [address] | | | | | | Mailcode: [id number] | | | | | | [facility] | | | | | | and Healing, | | | | | | Building | | | | | | Floor [place], [place] | | | | | | [address] | | | | | | [phone] | | | +--------+ + + + [...]
--- OUTSIDE RECORDS SUMMARY | ~2019-10-17 | XMS | Encounter Summary ---
Demographics + + + | Address | [address] | | | [place] [address] | + + + | Home Phone [...] Providers + +------+ + | Care Oracle Consultant Name | Role | Phone | + +------+ + | Petrona Thapa | PCP | | | MD | | | + +------+ + Reason for Visit + + + | Reason | Comments | + + + | Follow-up | 1 month Lumbar radiculopathy, acute | + + + Encounter Details +--------+---------+ + + + | Date | Type | Department | Care Team | Description | +--------+---------+ + + + | 06/17/ | Office | [facility] | Emmy-Kamlesh, | Migraine without | | 2019 | Visit | MEDICINE [address] [place] [address] | MD Petrona | aura and without | | | | Street [place] | [address] [place] [address] | status migrainosus, | | | | [place] [address] | [place] [address] | not intractable | | | | [phone] | [phone] | (Primary Dx); | | | | | | Chronic bilateral | | | | | | low back pain with | | | | | | bilateral sciatica | +--------+---------+ + + + Social [...] + + + | Blood Pressure | 90/54 | 06/17/2018 10:47 AM | | | | | PST | | + + + + + | Pulse | 65 | 06/17/2018 10:47 AM | | | | | PST | | + + + + + | Temperature | 36.8 C (98.2 F) | 06/17/2018 10:47 AM | | | | | PST | | + + + + + | Respiratory Rate | 16 | 06/17/2018 10:47 AM | | | | | PST | | + + + + + | Oxygen Saturation | 96% | 06/17/2018 10:47 AM | | | | | PST | | + + + + + | Inhaled Oxygen | - | - | | | Concentration | | | | + + + + + | Weight | 91.9 kg (202 lb 9.6 | 06/17/2018 10:47 AM | | | | oz) | PST | | + + + + + | Height | 172.7 cm (5' 8") | 06/17/2018 10:47 AM | | | | | PST | | + + + + + | Body Mass Index | 30.81 | 06/17/2018 10:47 AM | | | | | PST | | + + + + + documented in this encounter Progress Notes Petrona Thapa MD - 06/17/2018 10:45 AM PSTFormatting of this note might be d ifferent from the original. CHIEF COMPLAINT Chief Complaint Patient presents with Follow-up 1 month Lumbar radiculopathy, acute HPI Belinda Meehan is a 58 y.o. y/o female who presents today for several issues: She has history of migraine headaches and would like a refill of Imitrex. She thinks her i nsurance has changed this year and we may need to do a prior authorize for this medica tion. She has used it for quite a while and its very effective at the onset of a migraine a nd she would like to be able to continue to take it. No side effects reported. She also has chronic low back pain which is persistent, worse with standing and activity, r adiating into her lower extremities. Had an [facility] recently showing chronic d egenerative changes and disc bulges in her lower back with no significant stenosis or other acute indications for neurosurgery. Findings were similar to a previous MRI from a few year s ago. She did have back surgery in [facility] on a number of years ago. She didn't do any recent physical therapy or physiatry consults. REVIEW OF SYSTEMS See HPI for further details. Review of systems otherwise negative. PAST MEDICAL HISTORY Past Medical History: Diagnosis Date Anemia Anxiety Arthritis Atypical chest pain Benign essential hypertension Blind left eye Cervical radiculopathy Chronic bilateral low back pain with left-sided sciatica Chronic low back pain 01/04/2015 Chronic neck pain 01/04/2015 Chronic pain Chronic venous insufficiency Coccydynia COPD (chronic obstructive pulmonary disease) ([facility]) Depression Diarrhea Dumping syndrome Fall at home Fatigue fracture of vertebra Fibromyalgia Full dentures GERD (gastroesophageal reflux disease) Glaucoma Hyperparathyroidism ([facility]) Hypothyroidism IBS (irritable bowel syndrome) Idiopathic scoliosis Leg edema Low back pain Lumbar postlaminectomy syndrome Lumbar radiculopathy primarily right 01/04/2015 Meniere syndrome Migraine with aura Migraines Muscle cramping Muscle spasm Myalgia Nonalcoholic hepatosteatosis Obesity Opioid dependence ([facility]) Orthostatic hypotension OLIVER (obstructive sleep apnea) Osteoarthritis, generalized Osteopenia Osteoporosis Peripheral neuropathy Rheumatoid arthritis ([facility]) Right arm pain 01/04/2015 RLS (restless legs syndrome) S/P lumbar fusion 01/04/2015 Scoliosis Sleep apnea Spondylosis with myelopathy, lumbar region Stroke ([facility]) Syncope Tremor Type II or unspecified [...] COLONOSCOPY; Surgeon: Luther Brito MD; Location: [facility] MEDICAL PROCEDURE UNIT DILATION AND CURETTAGE OF UTERUS ELBOW SURGERY FINGER TRIGGER RELEASE 2002 FINGER TRIGGER RELEASE 2009 GASTRIC BYPASS SURGERY 2004 HYSTERECTOMY 05/14/1980 JOINT REPLACEMENT Bilateral 2006 2007 KNEE ARTHROSCOPY 2005 LAPAROSCOPY 01/27/2015 LAPAROTOMY 2008 ROTATOR CUFF REPAIR 2005 SPINE SURGERY TONSILLECTOMY 1964 UPPER GASTROINTESTINAL ENDOSCOPY N/A 12/18/2017 Procedure: EGD; Surgeon: Luther Brito MD; Location: [facility] MEDICAL PROCEDURE UNIT CURRENT MEDICATIONS Current [...] tablet Take 1 tablet by mouth Daily as needed for Migraine. 9 tablet 11 topiramate (TOPAMAX) 50 MG [...] Days Morelia Thapa MD 1,000 mcg at 05/17/18 1102 ALLERGIES Allergies Allergen Reactions Ensure Diarrhea Food Diarrhea Lactose Codeine Sulfate Nausea Only Levofloxacin Hives, Itching and Rash Butalbital Ropinirole Amitriptyline Hcl Other (See Comments) Confused and questionable for seizures Dsenskhaap-Goov-Jfagmesd Hives and Rash Cephalexin Hives Ciprofloxacin Hives and Rash Clarithromycin Hives and Rash Clindamycin Hcl Hives and Rash Doxycycline Rash Duloxetine Other (See Comments) Migraines and nausea Ketorolac Hives Levofloxacin Hives and Rash Morphine Swelling Penicillins Hives and Rash Ropinirole Hcl Hives Sulfamethoxazole-Trimethoprim Hives and Rash Tramadol Hcl Nausea Only PHYSICAL EXAM VITAL SIGNS: BP 90/54 | Pulse 65 | Temp 36.8 C (98.2 F) (Temporal) | Resp 16 | Ht 1 .727 m (5' 8") | Wt 91.9 kg (202 lb 9.6 oz) | LMP (LMP Unknown) | SpO2 96% | BMI 30.81 kg/m Constitutional: Well developed, Well nourished, No acute distress, Pleasant female. Cardiovascular: Regular rate & rhythm, No murmurs, No rubs, No gallops. No lower extremitie s edema. Thorax & Lungs: Normal breath sounds, No respiratory distress, No wheezing, No rubs. Skin: Warm, Dry, No erythema, No rash. Musculoskeletal: Decreased range of motion in lower back with mild scoliosis. Neurologic: Alert & oriented x 3, Normal motor function, Normal sensory function, No focal deficits noted. Psychiatric: Affect normal, Judgment normal, Mood normal. ASSESSMENT & PLAN 1. Migraine without aura and without status migrainosus, not intractable - SUMAtriptan (IMITREX) 25 mg tablet; Take 1 tablet by mouth Daily as needed for Migraine. Dispense: 9 tablet; Refill: 11 2. Chronic to low back pain with bilateral sciatica - We'll refer for physical therapy in [place], including aquatic therapy. FOLLOW-UP Return in about 3 months (around 09/15/2018). Note: Parts of this documentwere created using Dragon speech recognition software. As a r esult, there may be unintended word spelling errors. Every attempt was made to correct the dictation. Shanta Trevino Breaker Hand - 06/17/2018 10:45 AM PSTFormatting of this note might be diff erent from the original. Administrations This Visit cyanocobalamin (VITAMIN B-12) injection 1,000 mcg Admin Date 06/17/2018 Action Given Dose 1000 mcg Route Intramuscular Administered By Shanta Whaley Breaker Hand Pt tolerated B-12 injection well. documented in this encounter Plan of Treatment [...] | | | | | [place] [address] | | | | | | [phone] | | | | | | | | +--------+---------+ + + + | 12/20/ | Office | Audiology | Elisabet Munson MS | | | 2019 | Visit | | [facility] [address] | | | | | | [address] [place] | | | | | | [place] [address] | | | | | | [phone] | | | | | | | | +--------+---------+ + + + | 12/20/ | Office | Otolaryngology | Ulysses Genao MD | | | 2019 | Visit | | [address] | | | | | | [address] [place], | | | | | | [place] [address] | | | | | | [phone] | | | | | | | | +--------+---------+ + + + documented as of this encounter Procedures + +--------+ + + + | Procedure Name | Priori | Date/Time | Associated Diagnosis | Comments | | | ty | | | | + +--------+ + + + | IMAGING REPORT - | | 08/17/2018 | | Results for this | | EXTERNAL SCAN | | 12:00 AM | | procedure are in the | | | | PST | | results section. | + +--------+ + + + | IMAGING REPORT - | | 07/15/2018 | | Results for this | | [...] + | IMAGING REPORT - | | 03/01/2018 | | Results for this | | EXTERNAL SCAN | | 12:00 AM | | procedure are in the | | | | PDT | | results section. | + +--------+ + + + | IMAGING REPORT - | | 04/01/2016 | | Results for this | | EXTERNAL SCAN | | 12:00 AM | | procedure are in the | | | | PDT | | results section. | + +--------+ + + + documented in this encounter Results IMAGING REPORT - EXTERNAL SCAN (08/17/2018 12:00 AM PST) + + + | Narrative | Performed At | + + + | Ordered by an | | | unspecified provider. | | + + + IMAGING REPORT - EXTERNAL SCAN (07/15/2018 12:00 AM PST) + + + | Narrative | Performed At | + + + | Ordered by an | | | unspecified provider. | | + + + IMAGING REPORT - EXTERNAL SCAN (05/26/2018 12:00 AM PST) + + + | Narrative | Performed At | + + + | Ordered by an | | | unspecified provider. | | + + + IMAGING REPORT - EXTERNAL SCAN (03/01/2018 12:00 AM PDT) + + + | Narrative | Performed At | + + + | Ordered by an | | | unspecified provider. | | + + + IMAGING REPORT - EXTERNAL SCAN (04/01/2016 12:00 AM PDT) + + + | Narrative | Performed At | + + + | Ordered by an | | | unspecified provider. | | + + + documented in this encounter Visit Diagnoses + + | Diagnosis | + + | Migraine without aura and without status migrainosus, not intractable - Primary | | Migraine without aura, without mention of intractable migraine without mention of status | | migrainosus | + + | Chronic bilateral low back pain with bilateral sciatica | + + documented in this [...] | | | | First dose on Thu10/15/17 at 1215 | | | | | [...]
--- OUTSIDE RECORDS SUMMARY | ~2019-10-17 | XMS | Encounter Summary ---
Demographics + + + | Address | [address] | | | [place] [address] | + + + | Home Phone [...] Team Providers + +------+ + | Care Esthetics Instructor Name | Role | Phone | [...] | | | Densitometry | | MD Beto | Density [facility] | | | | | Osteoporosis | [address] | [address] | | | | | Procedures | Ave | Naeem Mcrae | | | | | CONSULT TO | [place], [place] | Rd Mailcode: | | | | | BONE | [address] | [address] | | | | | DENSITOMETRY | Phone: | [address] | | | | | | [phone] | [place], [place] | | | | | | Fax: | [address] | | | | | | [phone] | Phone: | | | | | | | [phone] | | | | | | | Fax: | | | | | | | [phone] | +--------+--------+ + + + + Reason for Visit + + + | Reason | Comments | + + + | Appointment | | + + + Encounter Details +--------+ + + + + | Date | Type | Department | Care Team | Description | +--------+ + + + + | 07/29/ | Telephone | Kraig Turner | Beto Meeks MD | Appointment | | 2007 | | [facility] | [address] | | | | | [facility] | [place], [place] | | | | | [address] | [address] | | | | | [address] | [phone] | | | | | [facility] | | | | | | Physician's | | | | | | Pavilion [place], | | | | | | [place] [address] | | | | | | [phone] | | | +--------+ + + + [...] + | Diagnosis | + + | Osteoporosis Osteoporosis, unspecified | + + documented in this encounter"
--- OUTSIDE RECORDS SUMMARY | ~2019-10-17 | XMS | Encounter Summary ---
Demographics + + + | Address | [address] | | | [place] [address] | + + + | Home Phone [...] Providers + +------+ + | Care Deer Farm Worker Name | Role | Phone [...] + | 06/25/ | Refill | [facility] | Alanis, | Medication Refill | | 2018 | | MEDICINE [address] [place] [address] | MD Petrona | | | | | [facility] | [address] [place] [address] | | | | | [place] [address] | [place] [address] | | | | | [phone] | [phone] | | | | | | | [...] | | | | | | [place] [address] | | | | | | [phone] | | | | | | | | +--------+---------+ + + + | 12/20/ | Office | Audiology | Elisabet Munson MS | | | 2019 | Visit | | [facility] [address] | | | | | | [place] [address] [place] | | | | | | [place] [address] | | | | | | [phone] | | | | | | | | +--------+---------+ + + + | 12/20/ | Office | Otolaryngology | Ulysses Genao MD | | | 2019 | Visit | | [address] | | | | | | [address] [place], | | | | | | [place] [address] | | | | | | [phone] | | | | | | | | +--------+---------+ + + + documented as of this encounter Visit Diagnoses + + | Diagnosis | + + | Nausea - Primary Nausea alone | + + documented in this encounter"
--- OUTSIDE RECORDS SUMMARY | ~2019-10-17 | XMS | Encounter Summary ---
Demographics + + + | Address | [address] | | | [place] [address] | + + + | Home Phone [...] Providers + +------+ + | Care Environmental Studies Faculty Member Name | Role | Phone | + +------+ + | Petrona Thapa | PCP | | | MD | | | + +------+ + Encounter Details +--------+ + + + + | Date | Type | Department | Care Team | Description | +--------+ + + + + | 07/09/ | Abstract | [facility] | Alanis, | | | 2018 | | MEDICINE [address] | MD Petrona | | | | | [facility] | [address] [facility] | | | | | [place] [address] | [place] [address] | | | | | [phone] | [phone] | | | | | | | [...] | | | | | | [place] [address] | | | | | | [phone] | | | | | | | | +--------+---------+ + + + | 12/20/ | Office | Audiology | Elisabet Munson MS | | | 2019 | Visit | | [facility] [address] | | | | | [address] [place] | | | | | | [place] [address] | | | | | | [phone] | | | | | | | | +--------+---------+ + + + | 12/20/ | Office | Otolaryngology | Ulysses Genao MD | | | 2019 | Visit | | [address] | | | | | | [address] [place], | | | | | | [place] [address] | | | | | | [phone] | | | | | | | [...]
--- OUTSIDE RECORDS SUMMARY | ~2019-10-17 | XMS | Encounter Summary ---
Demographics + + + | Address | [address] | | | [place] [address] | + + + | Home Phone [...] Team Providers + +------+ + | Care Informatics Nurse Name | Role | Phone | [...] Specialty | Gastroenterol | Diagnoses | | Alisha | | | Devon | jos | Nausea | Emmy-Cristin | MD Luther | | | Required | | | i, | [address] | | | | | | [place] | TORI | | | | | MD [address] | [place] [address] | | | | | | [address] | Phone: | | | | | | [place], | [phone] | | | | | | [place] | Fax: | | | | | | [address] | [phone] | | | | | | Phone: | | | | | | | [phone] | | | | | | | Fax: | | | | | | | [phone] | | +--------+ + + + + + Reason for Visit + + + | Reason | Comments | + + + | Medication Question | | + + + Encounter Details +--------+ + + + + | Date | Type | Department | Care Team | Description | +--------+ + + + + | 08/13/ | Telephone | [facility] | Alanis, | Medication Question | | 2018 | | MEDICINE [address] [place] [address] | MD Petrona | | | | | [facility] | [address] [place] [address] | | | | | [place] [address] | [place] [address] | | | | | [phone] | [phone] | | | | | | | [...] | | | | | [address] [facility] | | | | | | [place] [address] | | | | | | [phone] | | | | | | | | +--------+---------+ + + + | 12/20/ | Office | Audiology | Elisabet Munson MS | | | 2019 | Visit | | [facility] [place] | | | | | | [address] | | | | | | [place] [address] | | | | | | [phone] | | | | | | | | +--------+---------+ + + + | 12/20/ | Office | Otolaryngology | Ulysses Genao MD | | | 2019 | Visit | | [address] | | | | | | [address] [place], | | | | | | [place] [address] | | | | | | [phone] | | | | | | | | +--------+---------+ + + + + + +--------+ + + | Name | Type | Priori | Associated Diagnoses | Order Schedule | | | | ty | | | + + +--------+ + + | * [facility] [place] | Outpatient | Routin | Nausea | Expected: | | Gastroenterology - | Referral | e | | 08/17/2018, Expires: | | AMB Referral | | | | 08/18/2019 | + + +--------+ + + documented as of this encounter Visit Diagnoses + + | Diagnosis | + + | Nausea - Primary Nausea alone | + + documented in this encounter"
--- OUTSIDE RECORDS SUMMARY | ~2019-10-17 | XMS | Encounter Summary ---
Demographics + + + | Address | [address] | | | [place] [address] | + + + | Home Phone [...] Team Providers + +------+ + | Care Coal Dumping Equipment Operator Name | Role | Phone | + +------+ + | Pedrito Gutierrez MD | PCP | | + +------+ + Reason for Visit + + + | Reason | Comments | + + + | Back pain | | + + + | Shoulder pain | | + + + Encounter Details +--------+---------+ + + + | Date | Type | Department | Care Team | Description | +--------+---------+ + + + | 07/24/ | Office | [facility] | Delfina Lambert, | Chronic Bilateral | | 2008 | Visit | Pain Center at | ANP | Shoulder Pain | | | | [facility] | | (Primary Dx); Spinal | | | | [address] | | Fusion Lumbar spine | | | | Mailcode: CH15P | | ; LBP (Low Back | | | | [facility] | | Pain); Osteopenia; | | | | and Healing, | | Fibromyalgia | | | | Building | | syndrome 729.1; | | | | Floor [place], [place] | | Major Depressive | | | | [address] | | Disorder, Recurrent | | | | [phone] | | Episode, Moderate | | | | | | ([facility]); Adjustment | | | | | | Disorder with | | | | | | Anxiety; Encounter | | | | | | for Long-Term | | | | | | (Current) Use of | | | | | | Opioids; Coccydynia | +--------+---------+ + + + Social History [...] + + + | Blood Pressure | 123/76 | 07/24/2008 3:09 PM | | | | | PST | | + + + + + | Pulse | 74 | 07/24/2008 3:09 PM | | | | | PST | | + + + + + | Temperature | 36.7 C (98 F) | 07/24/2008 3:09 PM | | | | | PST | | + + + + + | Respiratory Rate | 16 | 07/24/2008 3:09 PM | | | | | PST | | + + + + + | Oxygen Saturation | 97% | 07/24/2008 3:09 PM | | | | | PST | | + + + + + | Inhaled Oxygen | - | - | | | Concentration | | | | + + + + + | Weight | 88.5 kg (195 lb) | 07/24/2008 3:09 PM | | | | | PST | | + + + + + | Height | 175.3 cm (5' 9") | 07/24/2008 3:09 PM | | | | | PST | | + + + + + | Body Mass Index | 28.8 | 07/24/2008 3:09 PM | | | | | PST | | + + + + + documented in this encounter Patient Instructions Patient Instructions Delfina Lambert ANP - 07/24/2008 4:14 PM PSTContinue with oxycontin and Percocet Start swimming program and walking weight bearing exercise Continue with amitriptyline trial 75 mg per day take at night Talk with PT about your coccyx pain Get Xrays of shoulders today third floor Ask doctor Brenda to see if he'll consider witting a letter to get prior aurthorization fo r pregabalin [Lyrica] taking into consideration what you have tried and failed for the fibro myalgia this is an FDA approved treatemnt for fibro. Start using your TENS unit. Follow up in 6-8 weeks or sooner if neededElectronically signed by NIHARIKA Ng at 0 07/24/2008 4:14 PM PST documented in this encounter Progress Notes Delfina Lambert ANP - 07/24/2008 3:36 PM PSTFormatting of this note might be different fr om the original. 07/24/2008 Belinda Meehan is a 48 y.o. female [facility] Return Visit Chief Complaint: Chief Complaint Patient presents with Back pain Shoulder pain History of Present Illness: Belinda [...] Since prior visit 06/21/08 this condition has improved . She does not have new pa in complaints on this visit. Fell two weeks ago backwards fell on tailbone and hands on hard surface increased shoulder pain and tailbone pain since. Expectations for this visit include: Amitriptyline got rid of GOTTLIEB, reports she fell taking 1 25 mg qhs, now taking 50 mg qhs. Insuance would not pay for pregabalin. The worst pain today is located in the both shoulders left >right and described as in the p osterior aspect constant aching "like a bad toothache" Onset years ago, last three months "r eally bad". Pain improves with heat, and is aggrevated by cold weather. Pain is not associ ated with numbness, tingling, muscle cramping and weakness. She reports improvement in the right leg "bees throbbing" now an then, back pain "burning" and sore tailbone. "nimbness completely gone". Plans to get back into the pool next week. A Brief Pain Inventory and a pain drawing has be completed, which I reviewed. [facility] Brief Pain Inventory: (ten= worst possible pain or complete interference) Right Now: 8 (07/24/08 3:12 PM) Least in 24 hours: 5 (07/24/08 3:12 PM) Worst in 24 hours: 10 (07/24/08 3:12 PM) Average: 8 (07/24/08 3:12 PM) % Relief (med/treat): 10 (07/24/08 3:12 PM) General Activity: 7 (07/24/08 3:12 PM) Mood: 8 (07/24/08 3:12 PM) Walking Ability: 8 (07/24/08 3:12 PM) Normal Work: 10 (07/24/08 3:12 PM) Relations with Others: 9 (07/24/08 3:12 PM) Enjoyment of Life: 8 (07/24/08 3:12 PM) Sexual Activity: 0 (07/24/08 3:12 PM) Sleep: 9 (07/24/08 3:12 PM) Treatment since last visit includes: 1. Medication management: Oxycontin 40 mg Q12hr, Percoet to replace the oxycodone working a s well , she reports wanting to decrease but some days can't. 2. Physical Rehabilitation: Ongoing local care for lower back and leg pain 30 minutes twice a week plans to start swimming next week approved by surgeon. 3. Mental Health care: psychology Dr. Ogden PhD problems with insurance "they don't want to pay". Since prior visit, Belinda Barnes reports that mood is affected by the pain and "if I can get out of the house I feel better", Plans to quit smoking ; and sleep reported to be off and on the past couple days, varies day to day " pain everywhere" . Review of Systems: Bones, Joints, and Muscles: joint pain and muscle pain Gastrointestinal System: negative Genitourinary System: negative Urinary Incontinence: No Nervous System: weakness Dizziness "if I move too fast" Psychiatric History: depressed mood, sleep disturbance and decreased energy Since prior visit, there have been no changes in past medical history, past surgical histor y, family history, or social history. SUKUMAR GOMES MD Mon Jul 10, 2008 Subjective: Belindavera Meehan is a 48 year old female [...] surgery, L5-S1 fusion with spur removal in , [place] 7 weeks ago. Assessment/Plan: 48 yo female s/p-ISAIAH for abdominal pain, nausea and vomiting, h/o-RYGBP performed in 2003. Pt is doing well with less abdominal pain, nausea and vomiting. Will plan to follow up in 6 months with a repeat CBC and CMP at that time. Current outpatient prescriptions Medication Sig Dispense Refill amitriptyline 25 mg Oral Tablet Take 25 mg by mouth. Take 2 tablets at bedtime aspirin chewable (BABY ASPIRIN) 81 mg Oral Tablet, Chewable 2 daily buPROPion XL (WELLBUTRIN XL) 300 mg Oral Tablet Sustained Release 24 hr take 1 tablet ( 300 mg) by oral route once daily ndyrixcnav-itgwsyvmghykc-kzfnzebl (FIORICET) 50-325-40 mg Oral Tablet take 2 [...] Oral Capsule 2 cap daily Side effects: dizziness with amitriptyline and postral changes Past Medical History Diagnosis Date Chronic Abdominal [...] 278 01/18 Paniculectomy Hx lumbar fusion 05/2008 L1-S3soodgp with bone spur removals Family History Problem Relation Cancer Mother Heart Father Additional Family History Father Migraine Additional Family History Mother Migraine MR CERVICAL SPINE WO CONTRAST: Radiologist 1: [...] arthrosis primarily at C3-4, C4-5, and C5-6. UPPER EXT JOINT W/O RT AT 1309 HOURS RIGHT SHOULDER MRI, 09/02/05 HISTORY: Two years of lateral and superior shoulder pain without known injury. COMPARISON: Plain films of the right shoulder 06/30/[address] Vasquez' office. TECHNIQUE: Axial GRASS and T2 fat-suppressed, coronal T2 and gradient-echo sagittal proton-density gradient-echo and T2 with fat suppression. FINDINGS: The signal is normal in the cortical and cancellous bone. The undersurface of the acromion is gently curved, and the acromion is slightly anteriorly downsloping. It is not laterally downsloping. There are no significant degenerative changes involving the AC joint. A rotator cuff tear is not identified. There is very slight high signal in the periphery of the infraspinatus and supraspinatus muscles, as they abut each other over the humeral head. This may be due to a mild strain. There is no fluid in the joint. The biceps tendon has normal signal, morphology and location. The junaid appear intact. IMPRESSION: QUESTION MILD STRAIN OF THE SUPRA AND INFRASPINATUS MUSCLES. OTHERWISE NORMAL EXAMINATION. Physical Examination: BP 123/76 | Pulse 74 | Temp (Src) 36.7 C (98 F) (Oral) | Resp 16 | Ht 1.753 m (5' 9") | Wt 88.451 kg (195 lb) | SpO2 97% Body mass index is 28.80 kg/(m^2). General appearance: Alert in no acute distress, well groomed, pleasant Right shoulder ROM restricted with extension and positive Neers sign Tenderness right ACJ and bicep muscle no deformity or crepitus No neurosensory or motor deficits 5/5 motor tone Coccyx and sacrum tenderness left greater than right side. Guarded. No allodynia. Impression: 719.41AB Chronic Bilateral Shoulder Pain V45.4J Spinal Fusion Lumbar spine 724.2AF LBP (Low Back Pain) 733.90X Osteopenia 729.1 Fibromyalgia syndrome 729.1 296.32 Major Depressive Disorder, Recurrent Episode, Moderate 309.24 Adjustment Disorder with Anxiety V58.69 Encounter for Long-Term (Current) Use of Opioids 724.79C Coccydynia Belinda Meehan has seen improvement in her lower back and left leg pain and functional ca pacity S/p lumbar spine surgery together with physical rehabilitation in progress. Surgery, stopping her swimming regimen, and not sleeping well has increased symptoms of fibromyalgia . She exhibits her typical depressed mood/flat affect with ongoing depression and frustrat ion with daily pain, she is concerned about not being able to continue with pain psychology due to changes to her insurance coverage, this support has been a significant help for Gulshan gamez over the years I have been seeing her, I feel it is imperative she be able to continue. Amitriptyline appears to have resolved her chronic daily headaches which speak to low levels of seritonin contributing, however two weeks ago at doses of 100 mg or more she became dizz y and fell aggrevating chronic pain of both shoulders and coccyx. She had imaging an MRI in 2003 which showed muscle strain of the right supraspinatous and infraspinatous muscles, no DJD. I would like her to work with PT on the shoulder and coccyx pain if these don't improv e consider reimaging with MRI to assess for any soft tissue injury since resent falling and change in pain status. Physical exam shows tenderness in the right bicep and soft tissues s urrounding the coccyx/sacrum no associated neurosensory or motor deficits. Recommendations/Plan: A 30 minute visit with greater than 50% spent in reviewing the progress notes and counselli ng/education of the patient. 1. No changes in pain medications 2. I recommended Belinda restart her swimming program and begin weight bearing exercises of the upper and lower extremity re: osteopenia in the hips - I suggested she get some couching through her physical therapy group 3. Amitripytline has helped resolve her GOTTLIEB, she may benefit by an increase or not if dizzi ness reoccurs increasing her risk of falling and injury. 4. Order for 2 view plain x rays of bilateral shoulders, today [facility] building third floor, I reviewed the right shoulder MRI 2005. 5. I recommend use of TENS unit for the musculoskeletal pain 6. Schedule follow up in 6-8 weeks or sooner if needed - The pateint was asked to call the clinic with any concerns or questions. 6. Dr. Gutierrez would you be willing to write a PA letter to her medical insurance and see i f you can get aurthorization for pregabalin [Lyrica] for fibromyalgia [ she has a case now t hat she has tried and failed multiple neuropathic agents : gabapentin, amitriptyline, oxcarb azepine, NSAIDs, opioids. 7. Continue with pain psychology Dr Ogden PhD as able. 8. Continue with PT - Local group. [facility] Mail code CH 4P [facility] [address] [place] [address] Ailyn Bello - 02/2009 3:13 PM PSTCMA History: PMH/PSH/SH/FH review 1. Has your [...] + +--------+ + + + | X-RAY SHOULDER 2 | Routin | 07/24/2008 | Chronic Bilateral | Results for this | | VIEW BILATERAL | e | 4:21 PM | Shoulder Pain | procedure are in the | | | | PST | | results section. | + +--------+ + + + documented in this encounter Results X-RAY SHOULDER 2 VIEW BILATERAL (07/24/2008 4:21 PM PST) + + + + + + | Component | Value | Ref Range | Performed | Pathologist | | | | | At | Signature | + + + + + + | SHOULDER 2 | 2 views bilateral | | | | | VIEW | shouldersComparison: | | | | | BILATERAL | NoneFindings:Left: | | | | | | Hydroxyapatite | | | | | | deposition is present | | | | | | over the | | | | | | greatertuberosity, | | | | | | likely in the distal | | | | | | supraspinatus tendon. | | | | | | Glenohumeraljoint | | | | | | space appears normal. | | | | | | There is mild spurring | | | | | | at theacromioclavicular | | | | | | joint. There is a | | | | | | laterally downsloping | | | | | | acromion.Soft tissues | | | | | | appear normal.Right: | | | | | | Glenohumeral and | | | | | | acromioclavicular joints | | | | | | appear normal. | | | | | | Thebones are intact | | | | | | without fracture or | | | | | | focal destruction. | | | | | | Soft tissuesappear | | | | | | normal.Impression:Left: | | | | | | Calcific tendinitis of | | | | | | the supraspinatus | | | | | | tendon.Right: Normal.I | | | | | | have personally viewed | | | | | | this procedure/exam and | | | | | | reviewed this | | | | | | report.Author: | | | | | | Joanna BALLESTEROSReviewer: | | | | | | SYEDA PÉREZ M.D.STATUS | | | | | | FINAL / Dr. LANDA | | | | | | DEMAYOSTATUS PENDING | | | | | | FINAL APPROVAL / | | | | | | KEKE FERMIN | | | | + + + + + + + + | Specimen | + + | | + + + +---------+ + + | Performing | Address | City/State/Zipcode | Phone Number | | Organization | | | | + +---------+ + + | [facility] DEPARTMENT OF | | | | | RADIOLOGY | | | | + +---------+ + + documented in this encounter Visit Diagnoses + + | Diagnosis | + + | Chronic Bilateral Shoulder Pain - Primary Pain in joint, shoulder region | + + | Spinal Fusion Lumbar spine Arthrodesis status | + + | LBP (low back pain) Lumbago | + + | Osteopenia Disorder of bone and cartilage, unspecified | + + | Fibromyalgia syndrome 729.1 Mylagia and myositis, unspecified | + + | Major depressive disorder, recurrent episode, moderate (HCC) Major depressive | | disorder, recurrent episode, moderate | + + | Adjustment disorder with anxiety | + + | Encounter for Long-Term (Current) Use of Opioids Encounter for long-term (current) | | use of other medications | + + | Coccydynia Other disorder of coccyx | + + documented in this encounter
--- OUTSIDE RECORDS SUMMARY | ~2019-10-17 | XMS | Encounter Summary ---
Demographics + + + | Address | [address] | | | [place] [address] | + + + | Home Phone [...] Providers + +------+ + | Care Manager Action Name | Role | Phone | + [...] + + | 10/28/ | Office | [facility] at [facility] | Lukasz Charles, | Major Depressive | | 2006 | Visit | [address] | PhD [address] | Disorder, Recurrent | | | | Mailcode: CH15P | [place], [place] | Episode, Moderate | | | | [facility] | [address] | ([facility]); Neck Pain; | | | | and Healing, | [phone] | Herniated Lumbar | | | | Building | | Intervertebral Disc | | | | Floor [place], [place] | | L4-5; 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 female with head, abdominal, back, and leg pain. She has sym ptoms of depression and anxiety along with her pain. She completed her move and is pleased with her new apartment. She reported that it will make it easier to walk places. We discus sed social activity and other activity. She has been making a friend at the [employer] . She has been doing cross stitch for a quilt. She is making preparations for her niece's visit in 2 weeks. She mentioned that she has an appointment with an orthopedic surgeon patricia dennis to look at her knees. She is anticipating some type of surgery. Ms. Meehan has ongoing depression and frustration. She is not suicidal. She seems to be doing well and she is coping with changes well. She has using good self-care skills. Diagnosis: Cleves I: 1. (296.32) Major depressive disorder, recurrent, moderate. 2. (309.24) Adjustment disorder with anxiety. 3. 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 Cleves II: Deferred Cleves III: abdominal pain, migraine headache, low back pain. Cleves IV: low finances Cleves V: GAF 50 Plan: Return in 2 weeks. Check preparation for move and for niece's visit, results of orthopedic visit. Check pacing, relaxation, activity, distraction. Continue cognitive/behavioral the rapy. Total time spent with patient was approximately 45 minutes. 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
--- OUTSIDE RECORDS SUMMARY | ~2019-10-17 | XMS | Encounter Summary ---
Demographics + + + | Address | [address] | | | [place] [address] | + + + | Home Phone [...] Team Providers + +------+ + | Care Order Dispatcher Chief Name | Role | Phone | + [...] | | 2005 | | Center at [facility] [address] | | endoscopy procedure | | | | [address] | | | | | | Mailcode: [place] | | | | | | [facility] | | | | | | [place] [address] | | | | | | [place], [place] | | | | | | [address] | | | | | | [phone] | | | +--------+ + + + [...] en doscopy in the Gastroenterology Clinic at [facility], see transcri bed report. Earnest Ward documented in this encount er Plan of Treatment + + +--------+ + + | Name | Type | Priori | Associated Diagnoses | Order Schedule | | | | ty | | | + + +--------+ + + | [place] [facility], | Procedures | Routin [...]
--- OUTSIDE RECORDS SUMMARY | ~2019-10-17 | XMS | Encounter Summary ---
Demographics + + + | Address | [address] | | | [place] [address] | + + + | Home Phone [...] Providers + +------+ + | Care Safety Tech Name | Role | Phone | + +------+ + | Pedrito Gutierrez MD | PCP | | + +------+ + Encounter Details +--------+ + + + + | Date | Type | Department | Care Team | Description | +--------+ + + + + | 10/29/ | Office | UNKNOWN DEPARTMENT | Clinic, | Progress Note | | 2006 | Visit-Trans | [address] | Endocrinology | | | | ukrt | [address] | | | | | | [place], [place] | | | | | | [address] | | | +--------+ + + + [...] as of this encounter Progress Notes Interface, Wire Spiral Binder In - 12/06/2006 2:32 AM PDT [id number] GEOVANNI Barnes [id number] Clinic Date: 10/29/2006 Clinic: Endocrinology Subjective: Belinda Meehan is a 46-year-old woman who underwent gastric bypass in November 2003 which resulted in an approximately 125-pound weight loss, based on her current weight. 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 She has been working with the Pain Clinic at [facility] to optimize her pain management. Fortunately, the severe refractory abdominal pain has resolved completely. In addition, she had ongoing shoulder pain, which has also resolved. Her migraine headaches have decreased substantially, but are not gone. Unfortunately, she continues to have severe pain related to DJD of her knees and hips. The left knee, in particular, gives her a lot of trouble. The knee locks up and causes her to fall. It severely limits her physical activity. She apparently saw an orthopedic surgeon who agreed that she needed a knee replacement, but the surgery was apparently refused by the surgeon because of her relatively young age. She also has ongoing stress incontinence, and she was recommended to be evaluated by a urologist for this problem. Since her last, she has been taking Actonel 35 mg every week for treatment of osteoporosis. I initiated this therapy after confirming that her last 25-hydroxyvitamin D concentration was up to 31, and her serum PTH concentration was appropriately reduced to 48. Because of ongoing knee and hip pain as well as low back pain, she has not been feeling well. She tends to not sleep well and feels worn out overall. Medications: She brought in a written medication list today. 1. Fentanyl patch 25 mcg for 72 hours. 2. Wayan/acetaminophen 10 mg/325 mg, 1 every 6 hours p.r.n. 3. Actonel 35 mg per week. 4. Trileptal 150 mg p.o. b.i.d. 5. Promethazine 25 mg every 6 hours p.r.n. 6. Vitamin B12 1000 mcg intramuscularly every month. 7. Furosemide 80 mg every morning. 8. Potassium chloride 20 mEq every morning. 9. Multivitamin 2 daily. 10. Vitamin C 500 mg, 4 tablets daily. 11. Calcium 600 mg plus vitamin D 400 units, 4 tablets daily. 12. Docusate sodium 100 mg p.r.n. Allergies: PENICILLIN, SULFA, MORPHINE, CODEINE, KEFLEX, TRAMADOL, CLINDAMYCIN, AND CIPRO. Physical Examination: Vital Signs: Weight 206.4 (increased to 11.6 pounds since July 2006), blood pressure 102/60, and pulse 74 beats per minute and regular. General: She was alert and in no acute distress, but she appeared very fatigued. Neck: Thyroid with estimated mass of 20 g to 25 g. Cardiac: Regular rate and rhythm. No murmur, S3, S4, or rubs. No JVD. Pulses within normal limits. No arterial bruits. Abdomen: No hepatosplenomegaly, masses, or tenderness. Extremities: Significant only for a trace pretibial edema. Deep tendon reflexes were 2+, without relaxation delay. Laboratory Data: She had a serum TSH concentration measured on September 14, 2006, which was mildly elevated to 7.7 microunits per milliliter. Her other laboratory data from July 30, 2006, were reviewed above. In summary, fortunately, her severe refractory abdominal pain has now resolved. However, she has ongoing problems related to degenerative joint disease of her knees and hips. It sounds like she would benefit from a left knee replacement, but the orthopedic surgeon who evaluated her declined to do the surgery. She may benefit from a repeat evaluation or possibly getting a second opinion from another orthopedic surgeon. She will continue to work with the Pain Clinic to optimize her pain management. She clearly is making a lot of progress in this regard. However, she does have anatomical disease of her knees, hips, and has herniated lumbar disks that also cause pain. She might require surgical intervention for the back problem, as well. I recommended that she try swimming because this may have beneficial effects on her back and other joints and will allow her to maintain more regular physical activity. This will hopefully help reduce her body weight back down to her previous weight in the range of 190 pounds. She did actually reach a dontae in weight of 159 pounds in June 2005, but her weight was reduced because of ongoing severe abdominal pain and decreased food intake. Thus, the recent increase in body weight is a reflection of improvement of her previous abdominal problems. She had a serum TSH concentration that was mildly elevated to 7.7 microunits per milliliter. I recommended that she begin treatment with a low dose of thyroid hormone, Levoxyl 50 mcg daily. She understands that this may not have a huge impact on the way she feels or on her body weight, but it will help eliminate the possibility that mild hypothyroidism is exacerbating her various problems. Plan: 1. Try swimming. 2. Levoxyl 50 mcg daily. 3. Consider getting a second opinion from another orthopedic surgeon regarding severe DJD of her left knee. 4. Return to see me again in about 3 months. Beto Meeks M.D. PD / HS [id number] / [id number] / [id number] / [id number] cc: Pedrito Gutierrez M.D. [address] [address] Chris Padgett M.D. Electronically signed by Beto Meeks 12-05-2006 05:17:05 AM documented in this encounter Plan of Treatment Not on filedocumented as of this encounter Visit Diagnoses Not on filedocumented in this encounter"
--- OUTSIDE RECORDS SUMMARY | ~2019-10-17 | XMS | Encounter Summary ---
Demographics + + + | Address | [address] | | | [place] [address] | + + + | Home Phone [...] Team Providers + +------+ + | Care Dry Molder Name | Role | Phone | [...] Description | +--------+--------+ + + + | 08/14/ | Refill | [facility] | Alanis, | Medication Refill | | 2018 | | MEDICINE [address] [place] [address] | MD [place] | | | | | [facility] | [address] [place] [address] | | | | | [place] [address] | [place] [address] | | | | | [phone] | [phone] | | | | | | | [...] | | | | | [place] [address] | | | | | | [phone] | | | | | | | | +--------+---------+ + + + | 12/20/ | Office | Audiology | Elisabet Munson MS | | | 2019 | Visit | | [facility] [address] | | | | | | [place] [address] [place] | | | | | | [place] [address] | | | | | | [phone] | | | | | | | | +--------+---------+ + + + | 12/20/ | Office | Otolaryngology | Ulysses Genao MD | | | 2020 | Visit | | [address] [facility] | | | | | | [address] [place] [address], | | | | | | [place] [address] | | | | | | [phone] | | | | | | | | +--------+---------+ + + + documented as of this encounter Visit Diagnoses Not on filedocumented in this encounter"
--- OUTSIDE RECORDS SUMMARY | ~2019-10-17 | XMS | Encounter Summary ---
Demographics + + + | Address | [address] | | | [place] [address] | + + + | Home Phone [...] Team Providers + +------+ + | Care 3D Technologist Name | Role | Phone | [...] [address] | | | | | [facility] | [place], [place] | | | | | [address] | [address] | | | | | [address] | [phone] | | | | | [facility] | | | | | | Physician's | | | | | | Pavilion [place], | | | | | | [place] [address] | | | | | | [phone] | | | +--------+--------+ + + + [...]
--- OUTSIDE RECORDS SUMMARY | ~2019-10-17 | XMS | Encounter Summary ---
Demographics + + + | Address | [address] | | | [place] [address] | + + + | Home Phone [...] Team Providers + +------+ + | Care Varnish Finisher Name | Role | Phone | + +------+ + | Pedrito Gutierrez MD | PCP | | + +------+ + Encounter Details +--------+ + + + + | Date | Type | Department | Care Team | Description | +--------+ + + + + | 07/30/ | Office | [facility] | Clinic, | Progress Note | | 2006 | Visit-Trans | [facility] | Endocrinology | | | | kurt | Sacha | | | | | | [facility], | | | | | | 7th floor | | | | | | [place], [place] | | | | | | [address] | | | | | | [phone] | | | +--------+ + + + [...] as of this encounter Progress Notes Interface, Quill Machine Operator In - 09/16/2006 7:22 AM PDT [id number] GEOVANNI Barnes [id number] Clinic Date: 07/30/2006 Clinic: Endocrinology Subjective: Belinda Meehan is a 46-year-old woman who underwent gastric bypass surgery in November 2003 and subsequently reduced her body weight from a peak of about 333 pounds down to a dontae of about 159 pounds. She has regained some of this weight but has recently stabilized at around 195 pounds. She continues to be plagued by severe pain. She has refractory lower abdominal pain that has evaded diagnostic evaluation. In addition, she has had recurrent severe migraine headaches, and currently, she has a migraine headache today. She says the abdominal pain has decreased somewhat, but it is still there. She apparently had pneumonia a few weeks ago, but she is recovering from this. The full details are not clear, but she appears to have had ongoing conflicts with her primary care provider regarding which medication she should be taking. She apparently was told to stop all vitamin D therapy, even though it is known that she has malabsorption of vitamin D. She currently is taking a minimal list of medications, and apparently, she has been taken off all of her pain medications. She had a bone mineral density study performed on June 24, 2006, after not taking calcium and vitamin D supplements for 3 months. Her T score in her spine was minus 1.2, which is indicative of osteopenia. However, this represented a 15% decrease compared to July 31, 2003. Similarly, her T score was minus 2.2 in the proximal femur, which is consistent with osteopenia but nearly severe enough to be classified as osteoporosis. Unfortunately, this constituted a 30% drop compared to her values of July 31, 2003. Thus, she has had a profound bone loss during the last 3 years. She is suffering from low back pain as a consequence of reportedly having 4 herniated discs. Medications: 1. Wellbutrin 300 mg daily. 2. Vitamin B12 at 1000 mcg intramuscularly every month. 3. Caltrate chewable calcium tablets. 4. Elemental calcium 600 mg, 4 tablets daily. 5. Biaxin for current infection. 6. Promethazine 25 mg daily. Physical Examination: Weight 194.8 pounds (stable), blood pressure 112/88, and pulse 88 beats per minute and regular. She is alert and in no acute distress, but she does appear to be in pain. Mood is otherwise within normal limits. Cardiac: Regular rate and rhythm. No murmur, S3, S4, or rubs. No JVD. Pulses are within normal limits. She has no arterial bruits. Abdomen: No hepatosplenomegaly, masses, or tenderness with moderate palpation of her abdomen. Deep pressure is uncomfortable. Extremities: She has no pretibial edema. She has a fine tremor. Laboratory studies are pending from today which include a complete metabolic set, 25- hydroxyvitamin D determination, serum PTH, iron, and total iron binding capacity. In summary, Belinda Meehan has a number of ongoing problems as noted above. She has experienced a precipitous decline in bone mineral density (15% loss in the spine and 30% loss in the femur) during the last 3 years. Recommendation: My recommendation is for her to await the results of today's laboratory studies and then to begin treatment with Actonel 35 mg every week if her vitamin D level is normal. The treatment with Actonel will help preserve current bone density, but also hopefully, it will allow her to regain some of the lost bone density. It is imperative for her to continue taking vitamin D and calcium. She also needs to take a multivitamin, at least one daily, and ideally one twice daily. Because of the mild to moderate amount of malabsorption that is caused by gastric bypass surgery, it is imperative for her to continue taking a multivitamin. Plan: 1. Await results of today's laboratory studies. 2. Tentative plan to initiate treatment with Actonel 35 mg every week unless her 25-hydroxyvitamin D concentration is low. 3. She must continue to take calcium and vitamin D. 4. She must continue to take a multivitamin at least once daily, and ideally, two tablets daily. 5. Return to see me again in 3 months. 6. Recheck bone mineral density in one year. Beto Meeks M.D. PD / HS [id number] / [id number] / [id number] / [id number] cc: Joanna Arshad M.D. Jonathan Hitzman, M.D. [address] [facility] [place] [address] Electronically signed by Beto Meeks 09-15-2006 11:40:17 PM documented in this encounter Plan of Treatment Not on filedocumented as of this encounter Visit Diagnoses Not on filedocumented in this encounter"
--- OUTSIDE RECORDS SUMMARY | ~2019-10-17 | XMS | Encounter Summary ---
Demographics + + + | Address | [address] | | | [place] [address] | + + + | Home Phone [...] Team Providers + +------+ + | Care Header Machine Operator Name | Role | Phone [...] + | 01/20/ | Refill | [facility] | Alanis, | Medication Refill | | 2017 | | MEDICINE [address] [place] [address] | MD [place] | | | | | [facility] | [address] [place] [address] | | | | | [place] [address] | [place] [address] | | | | | [phone] | [phone] | | | | | | | [...] | | | | | [place] [address] | | | | | | [phone] | | | | | | | | +--------+---------+ + + + | 12/20/ | Office | Audiology | Elisabet Munson MS | | | 2019 | Visit | | [facility] [address] | | | | | | [place] [address] [place] | | | | | | [place] [address] | | | | | | [phone] | | | | | | | | +--------+---------+ + + + | 12/20/ | Office | Otolaryngology | Ulysses Genao MD | | | 2020 | Visit | | [address] [facility] | | | | | | [address] [place] [address], | | | | | | [place] [address] | | | | | | [phone] | | | | | | | | +--------+---------+ + + + documented as of this encounter Visit Diagnoses Not on filedocumented in this encounter"
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
--- OUTSIDE RECORDS SUMMARY | ~2019-10-17 | XMS | Encounter Summary ---
Demographics + + + | Address | [address] | | | [place] [address] | + + + | Home Phone [...] Providers + +------+ + | Care Metal Hanging Supervisor Name | Role | Phone | + +------+ + | Pedrito Gutierrez MD | PCP | | + +------+ + Reason for Visit +--------+ + | Reason | Comments | +--------+ + | Other | would like labs put in | +--------+ + Encounter Details +--------+ + + + + | Date | Type | Department | Care Team | Description | +--------+ + + + + | 03/01/ | Telephone | [facility] | Chris Padgett, | Other (would like | | 2007 | | Center [address] | [address] | labs put in) | | | | Ave Mailcode: CH4S | [facility] | | | | | [facility] | [place], [place] | | | | | and Healing, | [address] | | | | | [place] [address] [facility] | [phone] | | | | | Floor [place], [place] | | | | | | [address] | | | | | | [phone] | | | +--------+ + + + [...] + | Diagnosis | + + | Diarrhea following gastrointestinal surgery - Primary Other postoperative functional | | disorders | + + documented in this encounter"
--- OUTSIDE RECORDS SUMMARY | ~2019-10-17 | XMS | Encounter Summary ---
Demographics + + + | Address | [address] | | | [place] [address] | + + + | Home Phone [...] Team Providers + +------+ + | Care Learning Technologist Name | Role | Phone | [...] as of this encounter Progress Notes Interface, Charter Coach Driver In - 07/03/2006 2:33 AM PST [id number] GEOVANNI SKELTON J [id number] Clinic Date: 06/24/2006 Clinic: Rheumatology Subjective: Belinda Meehan is a 46-year-old woman here for followup of fibromyalgia. She comes from [place] and is now also working with the [...] I will have a meeting soon with [facility] to start doing my films here, and [...] 2 months. Caitlin Rivera M.S., F.N.P. / [id number] / [id number] / [id number] / [id number] cc: [facility] Electronically signed by Caitlin Rivera 07-02-2006 11:27:56 AM documented in this encounter Plan of Treatment Not on filedocumented as of this encounter Visit Diagnoses Not on filedocumented in this encounter"
--- OUTSIDE RECORDS SUMMARY | ~2019-10-17 | XMS | Encounter Summary ---
Demographics + + + | Address | [address] | | | [place] [address] | + + + | Home Phone | | + + + | Preferred Language | Unknown | + + + | Marital Status | | + + + | Uatsdin Affiliation | 1001 | + + + | Race | Unknown | + + + | Ethnic Group | Unknown | + + + Author + + + | Author | [facility] | | | and Jairana | + + + | Organization | [facility] | | | [...] Providers + +------+ + | Care City Manager Name | Role | Phone | [...] + + | 01/17/ | Office | [facility] | Alanis, | Surgical wound | | 2019 | Visit | [address] | MD Petrona | infection (Primary | | | | [address] | [address] [place] [address] | Dx) | | | | [place] [address] | [place] [address] | | | | | [phone] | [phone] | | | | | | | [...] encounter Progress Notes Petrona Thapa MD - 01/17/2019 10:00 AM PDTFormatting of [...] Common migraine COPD (chronic obstructive pulmonary disease) ([facility]) Depression Diarrhea Dumping syndrome Fall at home Fatigue fracture of vertebra Fibromyalgia Full dentures GERD (gastroesophageal reflux disease) Glaucoma Hyperparathyroidism ([facility]) Hypothyroidism IBS (irritable bowel syndrome) Idiopathic scoliosis Leg edema Low back pain Lumbar postlaminectomy syndrome Lumbar radiculopathy primarily right 01/04/2015 Meniere syndrome Migraine with aura Migraines Muscle cramping Muscle spasm Myalgia Nausea Nonalcoholic hepatosteatosis Obesity Opioid dependence ([facility]) Orthostatic hypotension OLIVER (obstructive sleep apnea) Osteoarthritis, generalized Osteopenia Osteoporosis Palpitations Peripheral neuropathy Rheumatoid arthritis ([facility]) Right arm pain 01/04/2015 RLS (restless legs syndrome) S/P lumbar fusion 01/04/2015 Scoliosis Sleep apnea Spondylosis with myelopathy, lumbar region Stroke ([facility]) Syncope Tremor Type II or unspecified [...] Procedure: COLONOSCOPY; Surgeon: Luther Brito MD; Location: [facility] MEDICAL PROCEDURE UNIT DILATION AND CURETTAGE OF UTERUS ELBOW SURGERY FINGER TRIGGER RELEASE 2002 FINGER TRIGGER RELEASE 2009 GASTRIC BYPASS SURGERY 2004 HYSTERECTOMY 05/14/1980 JOINT REPLACEMENT Bilateral 2006 2007 KNEE ARTHROSCOPY 2005 LAPAROSCOPY 01/27/2015 LAPAROTOMY 2008 ROTATOR CUFF REPAIR 2004 SPINE SURGERY TONSILLECTOMY 1964 UPPER GASTROINTESTINAL ENDOSCOPY N/A 12/18/2017 Procedure: EGD; Surgeon: Luther Brito MD; Location: [facility] MEDICAL PROCEDURE UNIT CURRENT MEDICATIONS Current [...] Supplies MISC As directed 100 each 11 levoFLOXacin (LEVAQUIN) [...] Allergen Reactions Ensure Diarrhea Food Diarrhea Lactose Redobjbfuw-Hrm-Wckg-Codeine Other (See Comments) Balance problems Codeine Sulfate Nausea Only Food Allergy Formula Diarrhea Ensure Levofloxacin Hives, Itching and Rash Butalbital Ropinirole Amitriptyline Hcl Other (See Comments) Confused and questionable for seizures Ydconzytkm-Egyh-Bvbstzrp Hives and Rash Cephalexin Hives Ciprofloxacin Hives [...] Note: Parts of this documentwere created using Flazio speech recognition software. As a r esult, [...] | | | | | | [place] [address] | | | | | | [phone] | | | | | | | | +--------+---------+ + + + | 12/20/ | Office | Audiology | Elisabet Munson MS | | 2019 | Visit | | [facility] [address] | | | | | | [place] [address] [place] | | | | | | [place] [address] | | | | | | [phone] | | | | | | | | +--------+---------+ + + + | 12/20/ | Office | Otolaryngology | Ulysses Genao MD | | | 2019 | Visit | | [address] | | | | | | [address] [place], | | | | | | [place] [address] | | | | | | [phone] | | | | | | | | +--------+---------+ + + + documented as of this encounter Visit Diagnoses + + | Diagnosis | + + | Surgical wound infection - Primary Other postoperative infection | + + documented in this encounter
--- OUTSIDE RECORDS SUMMARY | ~2019-10-17 | XMS | Encounter Summary ---
Demographics + + + | Address | [address] | | | [place] [address] | + + + | Home Phone [...] Team Providers + +------+ + | Care Community Development Manager Name | Role | Phone [...] | +--------+ + + + + | 01/08/ | Telephone | [facility] | Alanis, | Results, Imaging | | 2017 | | MEDICINE [address] | MD [place] | | | | | [facility] | [address] [place] [address] | | | | | [place] [address] | [place] [address] | | | | | [phone] | [phone] | | | | | | | [...] [place] | | | | | | [place] [address] | | | | | | [phone] | | | | | | | | +--------+---------+ + + + | 12/20/ | Office | Audiology | Elisabet Munson MS | | | 2019 | Visit | | [facility] [address] | | | | | | [place] [address] [place] | | | | | | [place] [address] | | | | | | [phone] | | | | | | | | +--------+---------+ + + + | 12/20/ | Office | Otolaryngology | Ulysses Genao MD | | | 2020 | Visit | | [address] [facility] | | | | | | [address] [place], | | | | | | [place] [address] | | | | | | [phone] | | | | | | | | +--------+---------+ + + + documented as of this encounter Visit Diagnoses Not on filedocumented in this encounter"
--- OUTSIDE RECORDS SUMMARY | ~2019-10-17 | XMS | Encounter Summary ---
Demographics + + + | Address | [address] | | | [place] [address] | + + + | Home Phone [...] Team Providers + +------+ + | Care Professional Poker Player Name | Role | Phone | + +------+ + | Petrona Thapa | PCP | | | MD | | | + +------+ + Encounter Details +--------+---------+ + + + | Date | Type | Department | Care Team | Description | +--------+---------+ + + + | 12/20/ | Office | [facility] | Elisabet Munson MS | Sensorineural | | 2019 | Visit | AUDIOLOGY AND | [facility] [address] | hearing loss (SNHL) | | | | [facility] | [address] [place] | of both ears | | | | [address] | [place] [address] | (Primary Dx); | | | | [address] [place] | [phone] | Dizziness and | | | | [place] [address] | | giddiness | | | | [phone] | | | +--------+---------+ + + + [...] this encounter Progress Notes Elisabet Munson MS [facility]atie - 12/20/2018 9:30 AM PDTReferring Provider: No [...] with dizziness. Follow-up care with Dr. Genao, Sr. Thank you. documented in thi s encounter Plan of Treatment +--------+---------+ + + + | Date | Type | Specialty | Care Team | Description | +--------+---------+ + + + | 11/14/ | Office | Internal Medicine | Alanis, | | | 2019 | Visit | | MD [place] | | | | | | [address] [place] [address] [address] [place] | | | | | | [place] [address] | | | | | | [phone] | | | | | | | | +--------+---------+ + + + | 12/20/ | Office | Audiology | Elisabet Munson MS | | | 2019 | Visit | | [facility] [address] | | | | | | [address] [place] | | | | | | [place] [address] | | | | | | [phone] | | | | | | | | +--------+---------+ + + + | 12/20/ | Office | Otolaryngology | Ulysses Genao MD | | | 2019 | Visit | | [address] | | | | | | [address] [place], | | | | | | [place] [address] | | | | | | [phone] | | | | | | | [...]
--- OUTSIDE RECORDS SUMMARY | ~2019-10-17 | XMS | Encounter Summary ---
Demographics + + + | Address | [address] | | | [place] [address] | + + + | Home Phone [...] Team Providers + +------+ + | Care Buffing Machine Operator Semiautomatic Name | Role | Phone | + [...] [address] | | | | | [facility] | [place], [place] | | | | | [address] | [address] | | | | | [address] | [phone] | | | | | [facility] | | | | | | Physician's | | | | | | Pavilion [place], | | | | | | [place] [address] | | | | | | [phone] | | | +--------+--------+ + + + [...]
--- OUTSIDE RECORDS SUMMARY | ~2019-10-17 | XMS | Encounter Summary ---
Demographics + + + | Address | [address] | | | [place] [address] | + + + | Home Phone [...] + +------+ + | Care Information Technology Program Manager Name | Role | Phone [...] | Otolaryngolog | Diagnoses | Genao, | [address] | | | Services | y | Benign | Ulysses Lau MD | KEN | | | Required | | paroxysmal | [address] | [facility] | | | | | positional | [address] | [address] | | | | | vertigo, | [place] | AVE | | | | | left | [place], [place] | [place], [place] | | | | | Vertigo of | [address] | [address] | | | | | central | Phone: | Phone: | | | | | origin, left | [phone] | [phone] | | | | | | Fax: | Fax: | | | | | | [phone] | [phone] | +--------+ + + + + + + + | Scheduling Instructions | + + | Patient is going to be having an Tayler maneuver done and at [facility]. | + + Encounter Details +--------+ + + + + | Date | Type | Department | Care Team | Description | +--------+ + + + + | 12/11/ | Orders Only | [facility] | Ulysses Genao MD | Benign paroxysmal | | 2015 | | OTOLARYNGOLOGY [address] | [address] | positional vertigo, | | | | [address] | [address] [place], | left (Primary Dx); | | | | [place], [place] | [place] [address] | Vertigo of central | | | | [address] | [phone] | origin, left | | | | [phone] | | | +--------+ + + + [...] | | | | | [place] [address] | | | | | | [phone] | | | | | | | | +--------+---------+ + + + | 12/20/ | Office | Audiology | Elisabet Munson MS | | | 2019 | Visit | | [facility] [address] | | | | | | [address] [place] | | | | | | [place] [address] | | | | | | [phone] | | | | | | | | +--------+---------+ + + + | 12/20/ | Office | Otolaryngology | Ulysses Genao MD | | | 2020 | Visit | | [address] | | | | | | [address] [place], | | | | | | [place] [address] | | | | | | [phone] | | | | | | | | +--------+---------+ + + + + + +--------+ + + | Name | Type | Priori | Associated Diagnoses | Order Schedule | | | | ty | | | + + +--------+ + + | Ambulatory referral | Outpatient | Routin | Benign paroxysmal | Expected: | | to ENT | Referral | e | positional vertigo, | 12/11/2014, Expires: | | | | | left Vertigo of | 12/11/2015 | | | | | central origin, left | | + + +--------+ + + documented as of this encounter Visit Diagnoses + + | Diagnosis | + + | Benign paroxysmal positional vertigo, left - Primary | + + | Vertigo of central origin, left | + + documented in this encounter"
--- OUTSIDE RECORDS SUMMARY | ~2019-10-17 | XMS | Encounter Summary ---
Demographics + + + | Address | [address] | | | [place] [address] | + + + | Home Phone [...] Providers + +------+ + | Care Physical Testing Supervisor Name | Role | Phone | [...] [id number] | | | | | | [place], [place] | | | | | | [address] | | | | | | [phone] | | | +--------+ + + + [...]
--- OUTSIDE RECORDS SUMMARY | ~2019-10-17 | XMS | Encounter Summary ---
Demographics + + + | Address | [address] | | | [place] [address] | + + + | Home Phone [...] Team Providers + +------+ + | Care Vegetable I Farmworker Name | Role | Phone | [...] Pavilion | | | | | | [place], [place] | | | | | | [address] | | | | | | [phone] | | | +--------+ + + + [...]
--- OUTSIDE RECORDS SUMMARY | ~2019-10-17 | XMS | Encounter Summary ---
Demographics + + + | Address | [address] | | | [place] [address] | + + + | Home Phone [...] Team Providers + +------+ + | Care File Drawer Finisher Name | Role | Phone | + +------+ + PCP | Unavailable | + +------+ + Encounter Details +--------+ + + + + | Date | Type | Department | Care Team | Description | +--------+ + + + + | 02/18/ | Results | Endocrinology, | Beto Meeks MD | | | 2000 | Only | Diabetes and | [address] | | | | | Clinical Nutrition | [place], [place] | | | | | [address] | [address] | | | | | Loop Mailcode: OPC5 | [phone] | | | | | Outpatient Clinic | | | | | | [facility] | | | | | | [place] [address] | | | | | | [phone] | | | +--------+ + + + [...] + + + + + | [facility] | [address] | [place] [address] | | | LABORATORY | | | [...] + + + | [facility] | [address] | [place] [address] | | | LABORATORY | | | [...] + + + + + | [facility] | [address] | [place] [address] | | | LABORATORY | | | | + + + + + documented in this encounter Visit Diagnoses Not on filedocumented in this encounter"
--- OUTSIDE RECORDS SUMMARY | ~2019-10-17 | XMS | Encounter Summary ---
Demographics + + + | Address | [address] | | | [place] [address] | + + + | Home Phone [...] Team Providers + +------+ + | Care Proof Passer Name | Role | Phone | + [...] | Specialty | Physical | Diagnoses | Genna, | [facility] | | | Services | Therapy | Acute pain | [place] | [facility] | | | Required | | of right | Eliud, | PHYSICAL | | | | | shoulder | [address]APY [address] | | | | | Tear of | [address] | [place] | | | | | right | [place], | [place], [place] | | | | | supraspinatu | [place] | [address] | | | | | s tendon, | [address] | Phone: | | | | | initial | Phone: | [phone] | | | | | encounter | [phone] | Fax: | | | | | | Fax: | [phone] | | | | | | [phone] | | +--------+ + + + + [...] | | shoulder | Sulaim[address]ell | [address] | | | | | Tear of MD [address] | [place] | | | | | right | [address] | [address] Phone: | | | | | supraspinatu | [place], | [phone] | | | | | s tendon, | [place] | Fax: | | | | | initial | [address] | [phone] | | | | | encounter | Phone: | | | | | | | [phone] | | | | | | | Fax: | | | | | | | [phone] | | +--------+ + + + + + Encounter Details +--------+---------+ + + + | Date | Type | Department | Care Team | Description | +--------+---------+ + + + | 02/23/ | Office | [facility] | Lc Vail | Acute pain of right | | 2018 | Visit | ORTHOPEDIC SURGERY | MD [address] | shoulder; Tear of | | | | [address] [facility] | [facility] | right supraspinatus | | | | [place] | [place] [address] | tendon, initial | | | | [address] | [phone] | encounter | | | | [phone] | | | +--------+---------+ + + + [...] Weight | 101.6 kg (224 lb) | 02/23/2018 1:09 PM | | | | | PDT | | + + + + + | Height | 172.7 cm (5' 8") | 02/23/2018 1:09 PM | | | | | PDT | | + + + + + | Body Mass Index | 34.06 | 02/23/2018 1:09 PM | | | | | PDT | | + + + + + documented in this encounter Patient Instructions Patient Instructions Lc Vail MD - 02/23/2018 1:30 PM PDTFormatting of this note m ight be different from the original. "Reaching Up" [...] the shoulder. Try to hold the stretch zsd5ozrxuys. 3. Work up to cmwyx0gcfd of this stretch,3times a day. Work up [...] ask your healthcare provider. Date Last Reviewed: 07/16/201719991480-4200 [employer]. [address] [place] [address], [place] [address]. All righ ts reserved. This information is not intended as a substitute for professional medical care. Always follow your healthcare professional's instructions. documented in this encounter Progress Notes Lc Vail MD - 02/23/2018 1:30 PM PDTFormatting of this note might be different fro m the original. [facility] HISTORY AND PHYSICAL EXAMINATION Pt. [...] worse as time goes on. She quit [employer] in 2013. Past Medical History: Past [...] COLONOSCOPY; Surgeon: Luther Brito MD; Location: [facility] MEDICAL PROCEDURE UNIT DILATION AND CURETTAGE OF UTERUS ELBOW SURGERY FINGER TRIGGER RELEASE 2002 FINGER TRIGGER RELEASE 2009 GASTRIC BYPASS SURGERY 2004 HYSTERECTOMY 05/14/1980 JOINT REPLACEMENT Bilateral 2007,2008 KNEE ARTHROSCOPY 2005 LAPAROSCOPY 01/27/2015 LAPAROTOMY 2008 ROTATOR CUFF REPAIR 2005 SPINE SURGERY TONSILLECTOMY 1964 UPPER GASTROINTESTINAL ENDOSCOPY N/A 12/18/2017 Procedure: EGD; Surgeon: Luther Brito MD; Location: [facility] MEDICAL PROCEDURE UNIT Allergies: Allergies Allergen Reactions Codeine Sulfate Nausea Only Levofloxacin Hives, Itching and Rash Amitriptyline Hcl Other (See Comments) Confused and questionable for seizures Lmkswgncau-Quoo-Obrmuoph Hives and Rash Cephalexin Hives Ciprofloxacin Hives [...] Cla Maddie Thapa MD 1,000 mcg at 02/17/18 1149 [...] 1. Acute pain of right shoulder * [facility] Physical Therapy - AMB Referral triamcinolone acetonide (KENALOG-40) 40 mg/mL injection 40 mg 2. Tear of right supraspinatus tendon, initial encounter * [facility] Physical Therapy - AMB Refe rral triamcinolone [...] injection. She is [place] [facility] [place] and states that she has a hard time sleeping at night. The injection should help with h er pain. It should also allow her to do physical therapy. This is not an acute injury and a course of nonoperative management is indicated prior to consideration of surgical interven tion. Of note, she presented to sling today. I asked her to stay out [...] made to ensure accuracy; however, inadvertent computerized light rail train operator errors may be pre sent. I appreciate the opportunity to help with the management of this patient. Lc Vail MD [facility] umented in this encounter Plan of Treatment +--------+---------+ + + + | Date | Type | Specialty | Care Team | Description | +--------+---------+ + + + | 11/14/ | Office | Internal Medicine | Alanis, | | | 2019 | Visit | | MD [place] | | | | | | [facility] [address] | | | | | | [place] [address] | | | | | | [phone] | | | | | | | | +--------+---------+ + + + | 12/20/ | Office | Audiology | Elisabet Munson MS | | | 2019 | Visit | | [facility] [address] | | | | | | [address] [place] | | | | | | [place] [address] | | | | | | [phone] | | | | | | | | +--------+---------+ + + + | 12/20/ | Office | Otolaryngology | Ulysses Genao MD | | | 2019 | Visit | | [address] | | | | | | [address] [place], | | | | | | [place] [address] | | | | | | [phone] | | | | | | | | +--------+---------+ + + + + + +--------+ + + | Name | Type | Priori | Associated Diagnoses | Order Schedule | | | | ty | | | + + +--------+ + + | * [facility] | Outpatient | Routin | Acute pain of | Ordered: 02/23/2018 | | Therapy - AMB | Referral | e | right shoulder Tear | | | Referral | | | of right | | | | | | supraspinatus | [...] encounter | + + documented in this encounter Administered Medications + +--------+ +-------+------+ + | Medication Order | MAR | Action | Dose | Rate | Site | | | Action | Date | | | | + +--------+ +-------+------+ + | triamcinolone acetonide | Given | 02/24/20 | 40 mg | | Shoulder | | (KENALOG-40) 40 mg/mL injection | | 18 1:26 | | | -Right | | 40 mg 40 mg, Intra-articular, | | PM PDT | | | | | ONCE, Hermes 02/23/18 at 1400, For 1 | | | | | | | dose, Shake well. Not for IV | | | | | | | use., | | | | | | + +--------+ +-------+------+ + +---+---+ | | | +---+---+ documented in this encounter
--- OUTSIDE RECORDS SUMMARY | ~2019-10-17 | XMS | Encounter Summary ---
Demographics + + + | Address | [address] | | | [place] [address] | + + + | Home Phone [...] Team Providers + +------+ + | Care Ham Marker Name | Role | Phone | + [...] [facility] | | | | | [facility] | [place], [place] | | | | | [address] | [address] | | | | | [address] | [phone] | | | | | [facility] | | | | | | Physician's | | | | | | Pavilion [place], | | | | | | [place] [address] | | | | | | [phone] | | | +--------+--------+ + + + [...]
--- OUTSIDE RECORDS SUMMARY | ~2019-10-17 | XMS | Encounter Summary ---
Demographics + + + | Address | [address] | | | [place] [address] | + + + | Home Phone [...] Team Providers + +------+ + | Care Renewals Representative Name | Role | Phone | [...] ANP | | | | | [facility] | | | | | | [address] | | | | | | Mailcode: CH15P | | | | | | [place] [facility] | | | | | | and Healing, | | | | | | | | | | | | Floor [place], [place] | | | | | | [address] | | | | | | [phone] | | | +--------+ + + + [...]
--- OUTSIDE RECORDS SUMMARY | ~2019-10-17 | XMS | Encounter Summary ---
Demographics + + + | Address | [address] | | | [place] [address] | + + + | Home Phone [...] Team Providers + +------+ + | Care Boilermaker Helper Name | Role | Phone | [...] + + | 04/08/ | Telephone | [facility] | Rosi Antonio, | | | 2012 | | [facility] Center at | ANP | | | | | [facility] | | | | | | [address] | | | | | | Mailcode: CH15P | | | | | | [facility] | | | | | | and Healing, | | | | | | | | | | | | Floor [place], [place] | | | | | | [address] | | | | | | [phone] | | | +--------+ + + + [...]
--- OUTSIDE RECORDS SUMMARY | ~2019-10-17 | XMS | Encounter Summary ---
Demographics + + + | Address | [address] | | | [place] [address] | + + + | Home Phone | | + + + | Preferred Language | Unknown | + + + | Marital Status | | + + + | Advent Affiliation | 1001 | + + + | Race | Unknown | + + + | Ethnic Group | Unknown | + + + Author + + + | Author | [facility] | | | and Jairana | + + + | Organization | [facility] | | | and [...] Providers + +------+ + | Care Television Host Name | Role | Phone | + [...] + + | 11/20/ | Refill | [facility] | Alanis, | Medication Refill | | 2017 | | MEDICINE [address] [place] [address] | MD [place] | | | | | [facility] | [address] [place] [address] | | | | | [place] [address] | [place] [address] | | | | | [phone] | [phone] | | | | | | | [...] | | | | | | [place] [address] | | | | | | [phone] | | | | | | | | +--------+---------+ + + + | 12/20/ | Office | Audiology | Elisabet Munson MS | | | 2019 | Visit | | [facility] [address] | | | | | | [place] [address] [place] | | | | | | [place] [address] | | | | | | [phone] | | | | | | | | +--------+---------+ + + + | 12/20/ | Office | Otolaryngology | Ulysses Genao MD | | | 2020 | Visit | | [address] [facility] | | | | | | [address] [place], | | | | | | [place] [address] | | | | | | [phone] | | | | | | | | +--------+---------+ + + + documented as of this encounter Visit Diagnoses Not on filedocumented in this encounter"
--- OUTSIDE RECORDS SUMMARY | ~2019-10-17 | XMS | Encounter Summary ---
Demographics + + + | Address | [address] | | | [place] [address] | + + + | Home Phone [...] Team Providers + +------+ + | Care Skidway Man Name | Role | Phone | [...] as of this encounter Progress Notes Interface, Staff Mechanical Engineer In - 02/15/2006 2:03 AM PDT [id number] GEOVANNI BELINDA Molly [id number] Clinic Date: 01/29/2006 Clinic: Endocrinology Belinda Meehan [...] her visits to the Emergency Department in [place], she apparently had elevated "liver enzyme levels" and her blood pressure was up to 160/98. She subsequently underwent diagnostic testing that apparently included CT imaging of her abdomen and upper GI endoscopy, abdominal ultrasound, and other testing; the results of which have apparently been normal. She started going to [employer] approximately 2 weeks ago which has increased her level of physical activity. She has only occasional headaches, due in part to ongoing treatment with propanolol. She apparently was referred by Dr. Padgett to see a licensed marine engineer here at [facility] for further evaluation of severe recurrent abdominal [...] ([facility] and pulse 60 beats per minute [...] evaluated recently at the Emergency Department in [place]. Her alkaline phosphatase level today is about [...] would benefit from being evaluated by a licensed marine engineer. According to the patient, no gastroenterologists are available in [place]. She needs to petition her primary care provider and her insurance company to give the necessary authorization to allow her to be evaluated by a licensed marine engineer. Plan: 1. Await results of serum 25-hydroxyvitamin [...] She needs to be seen by a licensed marine engineer. 5. Return to see me again in 3 months. Beto Meeks M.D. PD / HS [id number] / [id number] / [id number] / cc: Pedrito Gutierrez M.D. [address] [place] [address] Chris Padgett M.D. Electronically signed by Beto Meeks 02-14-2006 02:02:55 AM documented i n this encounter Plan of Treatment Not on filedocumented as of this encounter Visit Diagnoses Not on filedocumented in this encounter
--- OUTSIDE RECORDS SUMMARY | ~2019-10-17 | XMS | Encounter Summary ---
Demographics + + + | Address | [address] | | | [place] [address] | + + + | Home Phone [...] + | Author | [facility] | | | and Jairana | + + + | Organization | [facility] | | | and [...] + +------+ + | Care Marketing Development Specialist Name | Role | Phone | [...] + + | 03/04/ | Telephone | [facility] | Alanis, | Referral; Medication | | 2016 | | [address] | MD [place] | Refill | | | | [facility] | [address] [place] [address] | | | | | [place] [address] | [place] [address] | | | | | [phone] | [phone] | | | | | | | [...] | | | | | | [place] [address] | | | | | | [phone] | | | | | | | | +--------+---------+ + + + | 12/20/ | Office | Audiology | Elisabet Munson MS | | | 2019 | Visit | | [facility] [address] | | | | | | [address] [place] | | | | | | [place] [address] | | | | | | [phone] | | | | | | | | +--------+---------+ + + + | 12/20/ | Office | Otolaryngology | Ulysses Genao MD | | | 2019 | Visit | | [address] [facility] | | | | | | [address] [place], | | | | | | [place] [address] | | | | | | [phone] | | | | | | | | +--------+---------+ + + + documented as of this encounter Visit Diagnoses Not on filedocumented in this encounter"
--- OUTSIDE RECORDS SUMMARY | ~2019-10-17 | XMS | Encounter Summary ---
Demographics + + + | Address | [address] | | | [place] [address] | + + + | Home Phone [...] Providers + +------+ + | Care Grocery Clerk Marking Name | Role | Phone | + [...] [id number] | | | | | | [place], [place] | | | | | | [address] | | | | | | [phone] | | | +--------+ + + + [...]
--- OUTSIDE RECORDS SUMMARY | ~2019-10-17 | XMS | Encounter Summary ---
Demographics + + + | Address | [address] | | | [place] [address] | + + + | Home Phone [...] + +------+ + | Care Service Delivery Supervisor Name | Role | Phone | [...] | | | | CONSULT TO | [place], [place] | [address] | | | | | NEUROLOGY | [address] | for Health | | | | | | | and Healing, | | | | | | | Building [address], | | | | | | | 8th Floor | | | | | | | [place], [place] | | | | | | | [address] | | | | | | | Phone: | | | | | | | [phone] | | | | | | | Fax: | | | | | | | [phone] | +--------+--------+ + + + + Reason for Visit +--------+ + | Reason | Comments | +--------+ + | Pain | back, legs, headache | +--------+ + Encounter Details +--------+---------+ + + + | Date | Type | Department | Care Team | Description | +--------+---------+ + + + | 08/12/ | Office | [facility] | Delfina Molina, | Migraine Headache | | 2006 | Visit | Pain Center at | ANP | (Primary Dx); | | | | [facility] | | 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 female [facility] Return Visit Chief Complaint: [...] in two weeks or PRN DELFINA MOLINA [facility] Mail code CH 4P [facility] and [address] [place] [address] Alisha Marquez - 7 [...]
--- OUTSIDE RECORDS SUMMARY | ~2019-10-17 | XMS | Encounter Summary ---
Demographics + + + | Address | [address] | | | [place] [address] | + + + | Home Phone [...] Providers + +------+ + | Care Keg Filler Name | Role | Phone | [...] | | | | Clinical Nutrition | [place], [place] | | | | | [address] | [address] | | | | | Loop Mailcode: OPC5 | [phone] | | | | | Outpatient Clinic | | | | | | [facility], | | | | | | [place] [address] | | | | | | [phone] | | | +--------+ + + + [...]
--- OUTSIDE RECORDS SUMMARY | ~2019-10-17 | XMS | Encounter Summary ---
Demographics + + + | Address | [address] | | | [place] [address] | + + + | Home Phone [...] Team Providers + +------+ + | Care Telehealth Case Manager Name | Role | Phone | [...] as of this encounter Progress Notes Interface, Steel Die Engraver In - 06/23/2006 2:36 AM PST [id number] GEOVANNI SKELTON Molly [id number] Clinic Date: 05/05/2006 Clinic: Endocrinology Subjective: Belinda [...] replacement. Beto Meeks M.D. PD / HS [id number] / [id number] / [id number] / cc: Pedrito Gutierrez M.D. [address] [place] [address] Joanna Arshad M.D. [facility] Electronically signed by Beto Meeks 06-20-2006 11:48:11 PM documented i n this encounter Plan of Treatment Not on filedocumented as of this encounter Visit Diagnoses Not on filedocumented in this encounter"
--- OUTSIDE RECORDS SUMMARY | ~2019-10-17 | XMS | Encounter Summary ---
Demographics + + + | Address | [address] | | | [place] [address] | + + + | Home Phone [...] Team Providers + +------+ + | Care Crushing Mill Operator Name | Role | Phone | + +------+ + | Sulaiman Carrera MD | PCP | | + +------+ + Encounter Details +--------+ + + + + | Date | Type | Department | Care Team | Description | +--------+ + + + + | 01/02/ | Ancillary | Registration [id number] | Beto Meeks MD | | | 2004 | Registratio | [facility] | [address] | | | | n | [place] Mailcode: RPB07 | [place], [place] | | | | | [place], [place] | [address] | | | | | [address] | [phone] | | | | | [phone] | | | +--------+ + + + [...] + | COMPLETE METABOLIC | Routin | 01/02/2005 | | Results for this | | SET | e | 1:47 PM | | procedure are in the | | (NA,K,CL,CO2,BUN,CRE | | PDT | | results section. | | AT,GLUC,CA,AST,ALT,B | | | | | | DEYA TOTAL,ALK | | | | | | PHOS,ALB,PROT TOTAL) | | | | | + +--------+ + + + | CBC ONLY | Routin | 01/02/2005 | | Results for this | | | e | 1:47 PM | | procedure are in the | | | | PDT | | results section. | + +--------+ + + + | TSH | Routin | 01/02/2005 | | Results for this | | | e | 1:47 PM | | procedure are in the | | | | PDT | | results section. | + +--------+ + + + documented in this encounter Results COMP METABOLIC SET (01/02/2005 1:47 PM PDT) + +-------+ + + + | Component | Value | Ref Range | Performed | Pathologist | | | | | At | Signature | + +-------+ + + + | GLUCOSE, | 93 | 65 - 110 mg/dL | [facility] [...] +-------+ + + + | TOTAL | 7.0 [...] +-------+ + + + | CALCIUM, | 9.6 [...] + + + | ALK PHOS | 95 | 42 - 98 U/L | [facility] | | | | | | DEPARTMENT | | | | | | OF | | | | | | PATHOLOGY | | + +-------+ + + + | AST(SGOT) | 38 | 15 - 41 U/L | [facility] | | | | | | DEPARTMENT | | | | | | OF | | | | | | PATHOLOGY | | + +-------+ + + + | SODIUM, | 143 | 136 - 145 | [facility] | | | PLASMA | | mmol/L | DEPARTMENT | | | (LAB) | | | OF | | | | | | PATHOLOGY | | + +-------+ + + + | POTASSIUM, | 3.6 [...] + + + | ALT (SGPT) | 38 | 13 - 48 U/L | [facility] [...] DEPARTMENT OF | [address] | [place] [address] | | | PATHOLOGY | [address] | | | + + + + + | [facility] DEPARTMENT OF | [address] | [place] [address] | | | PATHOLOGY | [address] | | | + + + + + CBC ONLY WITH PLATELET (01/02/2005 1:47 PM PDT) + +-------+ + + + | Component | Value | Ref Range | Performed | Pathologist | | | | | At | Signature | + +-------+ + + + | WHITE CELL | 7.0 | 4.4 - 11.0 K/cu | [facility] [...] +-------+ + + + | HEMATOCRIT | 45.0 | 36.0 - 46.0 % | [facility] | | | | | | DEPARTMENT | | | | | | OF | | | | | | PATHOLOGY | | + +-------+ + + + | MCV | 92.3 | 80.0 - 96.0 fL | [facility] | | | | | | DEPARTMENT | | | | | | OF | | | | | | PATHOLOGY | | + +-------+ + + + | MCHC | 34.5 [...] +-------+ + + + | PLATELET | 248 | 150 - 400 K/cu | [facility] [...] + + + + + | [facility] DEPARTMENT OF | [address] [facility] | [place] [address] | | | PATHOLOGY | [address] | | | + + + + + | [facility] DEPARTMENT OF | [address] [facility] | [place] [address] | | | PATHOLOGY | [address] | | | + + + + + TSH-THYROID STIM HORMONE (01/02/2005 1:47 PM PDT) + + + + + + | Component | Value | Ref Range | Performed | Pathologist | | | | | At | Signature | + + + + + + | TSH | 2.70Comment: Test | 0.28 - 5.00 | | [...] | + + + + + | [facility] | [address] | [place] [address] | | | LABORATORY | | | | + + + + + documented in this encounter Visit Diagnoses Not on filedocumented in this encounter"
--- OUTSIDE RECORDS SUMMARY | ~2019-10-17 | XMS | Encounter Summary ---
Demographics + + + | Address | [address] | | | [place] [address] | + + + | Home Phone [...] Team Providers + +------+ + | Care Shotgun Shell Reprinting Unit Operator Name | Role | Phone | [...] gastric | Patricia Lopez NP | MD eBto | | | | Metabolism | bypass | [address] | [address] | | | | | Hypovitamino | [address] | [address] | | | | | sis [address] | [address] | [place], [place] | | | | | nutritional | [place] | [address] | | | | | deficiency | [address] | Phone: | | | | | Other | Phone: | [phone] | | | | | protein-jose manuel | [phone] | Fax: | | | | | nick | Fax: | [phone] | | | | | malnutrition | [phone] | | | | | | Weight | | | | | | | gain | | | | | | | Procedures | | | | | | | CONSULT TO | | | | | | | ENDO | | | | | | | [address] | | | | | | | [address] | | | +--------+--------+ + + + [...] | | [facility] | [place], [place] | Dx); Hypothyroidism; | | | | [address] | [address] | Essential | | | | [address] | [phone] | hypertension 401.9; | | | | [facility] | | 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 Gets primary care in [place], [place] ([facility] Cintron). Weight leveled out [...] replacement 08/2007 right knee Lumbar fusion 05/2008 L5-I4xgmewj with bone spur removals Appendectomy Cholecystectomy section [...] Hives Mainly in the legs Clindamycin Codeine Jjsydck-Bplgdvrnty-Bth-Caff Balance problems Fioricet W/Codeine (Bjpvzoymht-Nilwdzmpfs-Pwr-Cod) Keflex (Cephalexin) Morphine IM ( only in [facility]) made gut pain worse 08/27/06: Trial of [...] Ly Allred MD R-2, Internal Medicine Pager: [phone] documented in this enco unter Plan of [...] | | If you are | | [place] | | | | screening for diabetes: [...] + | [place] [facility] - | [address] | [place] [address] | | | [place] | | | [...] [facility] | [address] | [place] [address] | | | SERVICES, SPECIAL | [address] [...] + + + + + | [facility] | [address] | [place] [address] | | | SERVICES, CORE | [address] [...] + + + + + | [facility] | [address] | [place] [address] | | | SERVICES, SPECIAL | [address] [...] by | | | | | | [place] | | | | | | Abdiaziz Morales, [facility] | | | | | | [address] | | | | | | [phone].Kaesu. | | | | | | [facility], [employer], | | | | | [...] [facility] | [address] | [place], [place] | | | [facility] | | [address] | | + + + + + [...] | + + + + + | [facility] | [address] | [place] [address] | | | SERVICES, SPECIAL | [address]ARK [...] + | [place] [facility] - | [address] | [place] [address] | | | [place] | | | [...]
--- OUTSIDE RECORDS SUMMARY | ~2019-10-17 | XMS | Encounter Summary ---
Demographics + + + | Address | [address] | | | [place] [address] | + + + | Home Phone [...] Providers + +------+ + | Care Wood Floor Layer Name | Role | Phone | + +------+ + | Pedrito Gutierrez MD | PCP | | + +------+ + Encounter Details +--------+---------+ + + + | Date | Type | Department | Care Team | Description | +--------+---------+ + + + | 08/05/ | Office | Comprehensive Pain | Nathalia Arora | Cervical Spondylosis | | 2006 | Visit | [facility] | [address] | without Myelopathy | | | | [address] | [place], | (Primary Dx); | | | | [address] Mailcode: | [place] [address] | Spondylosis with | | | | CH15P [facility] | | Myelopathy, Lumbar | | | | Health and Healing, | | Region; Herniated | | | | Building | | Lumbar | | | | Floor [place], [place] | | Intervertebral Disc; | | | | [address] | | Unspecified Myalgia | | | | [phone] | | and Myositis | +--------+---------+ + [...] this encounter Progress Notes Nathalia Arora - 08/05/2006 12:39 PM PSTFormatting of this note might be different from th e original. PROGRESS NOTE: Physical Therapy Medicare Progress Note Date: 08/05/2006 Belinda Molly Shefali [id number]. 1960 Start of Care: 06/23/2006 Referring Provider: [...] 05/29/2006 Insurance: Medicare Number of used/authorized visits: 09/16 Medicare certification from: 07/16/2006 through 08/12/2006 Subjective: Reported over all pain level 10/10, headache symptoms and lowback pain. Objective: Patient stated that this past Fri. She had a migraine that was so bad she could n't keep hydrated, went to the ED in [place] and was sent home by the M.DYudy There without a ny treatment and advised by him to contact the pain clinic. Patient did not some relief with her last treatment, and continues her exercises consistent ly. She is walking daily at [facility] for 15-20 minutes, sitting X 60 minutes, pain level is sometimes <5/10. Patient's recent X-Rays of her cervical spine revealed mild decreased disc space narrowing from C3-C7. Testing of cervical spine: Spurling's negative bilateral, Comp ression/Distraction negative. With right cervical rotation patient's headache symptoms were reproduced as well as with pressure applied to right suboccipitals and scalenes. Noted ten derness/tightness of right levator, upper traps also. Treatment was focused on cervical spine today: In prone myofascial release to suboccipital s, scalenes, upper traps, levator scapulae, R>L; scapular mob bilateral. Followed by prone isometric sequence for trunk: Lower abdominals, gluteals squeezes, and lower traps X 12 rep s, worked to fatigue with good toleration, and cervical spine neutral. In supine continued with myofasical release to right suboccipitals and scalenes at proximal attachments. In sit ting started addressing neutral spine, ie modified cervical retraction, but patient feeling increased symptoms of headache when she relaxed so changed to supine position, with repeated modified cervical retraction and left rotation X 8 reps symptoms reduced and noted less pal pable tightness at right suboccipitals and scalenes. Patient will continued with prone josé etric sequence and cervical retraction with left rotation as part of home regime. Assessment: Patient's headache symptoms have a cervicogenic component, significant myofasci al involvement, poor postural habits contribute to patient's symptoms. Functionally, slick t has a reduced incidence of falls secondary to using a cane or crutches at all times when a mbulating, cooking X 30 minutes, walking 15-20 minutes, and sitting X 60 minutes, with pain intermittently <5/10. Plan: Patient will continue with treatment, addressing cervical and lowback issues, progres sing in core stabilization, manual therapy PRN. Patient has 1 visit left for this treatment period, and will schedule x 4 more visits, concurrently with psychology, every other week. Treatment began: 1099 Treatment ended: 1155 Nathalia Arora, Physical Therapist License number [id number] documented in this encoun ter Plan of Treatment + + +--------+ + + | Name | Type | Priori | Associated Diagnoses | Order Schedule | | | | ty | | | + + +--------+ + + | NC MANUAL THER | Procedures | Routin | Cervical | Ordered: 08/05/2006 | | TECH,1+REGIONS,EA 15 | | e [...] + + +--------+ + + | NC THERAPEUTIC | Procedures | Routin | Cervical | Ordered: 08/05/2006 | | EXERCISES | | e | [...] + + +--------+ + + | NC THERAPEUTIC | Procedures | Routin | Cervical | Ordered: 08/05/2006 | | ACTIVITIES | | e | Spondylosis without | [...]
--- OUTSIDE RECORDS SUMMARY | ~2019-10-17 | XMS | Encounter Summary ---
Demographics + + + | Address | [address] | | | [place] [address] | + + + | Home Phone [...] [facility] | | | and aJirana | + + + | Organization | [...] Providers + +------+ + | Care Sound Controller Name | Role | Phone | [...] + + | 05/04/ | [facility] | [facility] | Alanis, | Medication Refill | | 2017 | | MEDICINE [address] [place] [address] | MD [place] | | | | | [facility] | [address] [place] [address] | | | | | [place] [address] | [place] [address] | | | | | [phone] | [phone] | | | | | | | [...] | | | | | [place] [address] | | | | | | [phone] | | | | | | | | +--------+---------+ + + + | 12/20/ | Office | Audiology | Elisabet Munson MS | | | 2019 | Visit | | [facility] [address] | | | | | | [place] [address] [place] | | | | | | [place] [address] | | | | | | [phone] | | | | | | | | +--------+---------+ + + + | 12/20/ | Office | Otolaryngology | Ulysses Genao MD | | | 2020 | Visit | | [address] [facility] | | | | | | [address] [place], | | | | | | [place] [address] | | | | | | [phone] | | | | | | | | +--------+---------+ + + + documented as of this encounter Visit Diagnoses Not on filedocumented in this encounter"
--- OUTSIDE RECORDS SUMMARY | ~2019-10-17 | XMS | Encounter Summary ---
Demographics + + + | Address | [address] | | | [place] [address] | + + + | Home Phone [...] Providers + +------+ + | Care Head Charrer Name | Role | Phone | + [...] + + | 11/17/ | Office | [facility] | Alanis, | Bilateral leg edema | | 2018 | Visit | MEDICINE [address] | MD [place] | (Primary Dx); Venous | | | | [address] | [address] [facility] | insufficiency; | | | | [place] [address] | [place] [address] | Fatigue, unspecified | | | | [phone] | [phone] | type | | | | | [...] apnea Spondylosis with myelopathy, lumbar region Stroke ([facility]) Syncope Tremor Type II or [...] (See Comments) Confused and questionable for seizures Mgbdybmsrl-Zocj-Pdzpakwa Cephalexin Hives Duloxetine Migraines and nausea Ketorolac Hives Morphine Swelling Ropinirole Hcl Hives Tramadol Hcl Nausea Only Jtwfozkcfn-Nufv-Ztpmpsgb Hives and Rash Ciprofloxacin Hives and Rash [...] Note: Parts of this documentwere created using [employer] speech recognition software. As a r esult, [...] | | | | | [place] [address] | | | | | | [phone] | | | | | | | | +--------+---------+ + + + | 12/20/ | Office | Audiology | Elisabet Munson MS | | 2019 | Visit | | [address] | | | | | | [place] [address] [place] | | | | | | [place] [address] | | | | | | [phone] | | | | | | | | +--------+---------+ + + + | 12/20/ | Office | Otolaryngology | Ulysses Genao MD | | | 2020 | Visit | | [address] [facility] | | | | | | [address] [place], | | | | | | [place] [address] | | | | | | [phone] | | | | | | | [...] Quantitativ | quantitative D-Dimer | | [facility] | | | e | assay has [...] + + | Performing | Address | City/State/[facility] | Phone Number | | Organization | | | | + + + + + | [facility] | [address] | [place] | [phone] | | [facility] | | [address] | | | - LABORATORY | | | | + + + + + Sedimentation Rate (11/17/2017 11:40 AM PDT) + +-------+ + + + | Component | Value | Ref Range | Performed | Pathologist | | | | | At | Signature | + +-------+ + + + | Erythrocyte | 10 | <30 mm/hr | [facility] | | | | | | ST. [...] | [address] | [place], [place] | [phone] | | [facility] | | [address] | | | - LABORATORY | | [...] | third generation TSH | uIU/mL | [facility] | | | | test. | [...] + | [facility] | [address] | [place] | [phone] | | [facility] | | [address] | | | - LABORATORY | | [...] (L) | 7 - 18 mg/dL | [facility] | | | | | | [facility] | | | | | | MEDICAL | | | | | | CENTER - | | | | | | LABORATORY | | + + + + + + | Creatinine | 0.72 | 0.60 - 1.30 | [facility] | | | | | mg/dL | [facility] | | | | | | MEDICAL | | | | | | CENTER - | | | | | | LABORATORY | | + + + + + + | eGFR if not | >60Comment: GLOMERULAR | >=60 | [facility] | | | | FILTRATION | mL/min/1.73m2 | [facility] | | | MALIAN | RATE,ESTIMATED | | MEDICAL | | | | mL/min/1.58a1Ifgj than | | CENTER - | | [...] | | bulin Ratio | | | [facility] | [...] [address] | [place] | [phone] | | [facility] | | [address] | | | - LABORATORY | | [...] ST. | [address] | [place] | [phone] | | [facility] | | [address] | | | - LABORATORY | | [...]
--- OUTSIDE RECORDS SUMMARY | ~2019-10-17 | XMS | Encounter Summary ---
Demographics + + + | Address | [address] | | | [place] [address] | + + + | Home Phone [...] Providers + +------+ + | Care Medical Technologist Chemistry Name | Role | Phone | + [...]
--- OUTSIDE RECORDS SUMMARY | ~2019-10-17 | XMS | Encounter Summary ---
Demographics + + + | Address | [address] | | | [place] [address] | + + + | Home Phone [...] Providers + +------+ + | Care Health Outcomes Liaison Name | Role | Phone | + [...] 05/29/ | Office | [facility] at [facility] | Lukasz Charles, | Major Depressive | | 2005 | Visit | [address] | PhD [address] | Disorder, Recurrent | | | | Mailcode: CH15P | [place], [place] | Episode, Moderate | | | | [place] | [address] | ([facility]); Chronic | | | | and Healing, | [phone] | Abdominal Pain; | | | | Building | | Cervical Pain; | | | | Floor [place], [place] | | Headache; Adjustment | | | | [address] | | Disorder with | | | | [phone] | | Anxiety; Other Pain | | [...] Notes Lukasz Charles - 05/29/2006 6:15 PM [facility] Initial Psychological Wendy luation IDENTIFYING INFORMATION: Belinda Meehan is a 46 y.o. female Date of : 1960 Consulting Physician: LUKASZ CHARLES PHD Consultation Date: 05/29/2006 Referring Provider: Carlos Arreola Identifying Information: Belinda Meehan is a 46 y.o. female who lives in [facility] her 2 sons. The patient was referred [...] disability benefits. 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 Marital History: , not currently in [...] and decreasing depression and anx iety. Diagnosis: [place] I: 1. (296.32) Major depressive disorder, recurrent, moderate. 2. (309.24) Adjustment disorder with anxiety. 3. 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 [place] II: Deferred [place] III: abdominal pain, migraine headache, low back pain. [place] IV: low finances [place] V: GAF 50 Recommendations: 1. Psychological counseling to increase knowledge and use of cognitive and behavioral pain coping skills is recommended. The treatment should include relaxation training to improve c ontrol over physiologic responses to pain. Treatment should also focus on decreasing sympto ms of depression and increasing participation in social, recreational and leisure activities . Ms. 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 LUKASZ CHARLES PHD [facility] [address] [place] [address] [facility], [address]th [place] [address] [facility] Plan of Treatment + + +--------+ + + | Name | Type | Priori | Associated Diagnoses | Order Schedule | | | | ty | | | + + +--------+ + + | MD PSYCHIATRIC | Procedures | Routin | Major [...]
--- OUTSIDE RECORDS SUMMARY | ~2019-10-17 | XMS | Encounter Summary ---
Demographics + + + | Address | [address] | | | [place] [address] | + + + | Home Phone [...] Team Providers + +------+ + | Care Appraiser Irrigation Tax Name | Role | Phone | + +------+ + | Petrona Thapa | PCP | | | MD | | | + +------+ + Encounter Details +--------+ + + + + | Date | Type | Department | Care Team | Description | +--------+ + + + + | 03/02/ | [facility] | [facility] | Alanis, | Neck pain on right | | 2018 | Encounter | [facility] | MD Petrona | side | | | | [address] [place] | [address] [place] | | | | | [place], [place] | [place] [address] | | | | | [address] | [phone] | | | | | [phone] | | | +--------+ + + + [...] + + | SUMAtriptan | Take 1 tablet by | 12 | 0 | 03/02/20 | | | (IMITREX) 25 mg | mouth as needed for | tablet | | 18 | 8 | | tablet | Migraine. | | | | | + + [...] | | | | | [place] [address] | | | | | | [phone] | | | | | | | | +--------+---------+ + + + | 12/20/ | Office | Audiology | Elisabet Munson MS | | | 2019 | Visit | | [facility] [address] | | | | | | [place] [address] [place] | | | | | | [place] [address] | | | | | | [phone] | | | | | | | | +--------+---------+ + + + | 12/20/ | Office | Otolaryngology | Ulysses Genao MD | | | 2020 | Visit | | [address] [facility] | | | | | | [address] [place], | | | | | | [place] [address] | | | | | | [phone] | | | | | | | | +--------+---------+ + + + documented as of this encounter Procedures + +--------+ + + + | Procedure Name | Priori | Date/Time | Associated Diagnosis | Comments | | | ty | | | | + +--------+ + + + | IMAGING REPORT - | | 03/04/2018 | | Results for this | | EXTERNAL SCAN | | 12:00 AM | | procedure are in the | | | | PDT | | results section. | + +--------+ + + + | XR CERVICAL SPINE 2 | Routin | 03/02/2018 | Neck pain on right | Results for this | | OR 3 VIEWS | e | 10:39 AM | side | procedure are in the | | | | PDT | | results section. | + +--------+ + + + documented in this encounter Results IMAGING REPORT - EXTERNAL SCAN (03/04/2018 12:00 AM PDT) + + + | Narrative | Performed At | + + + | Ordered by an | | | unspecified provider. | | + + + XR Cervical Spine 2 [...] + | Neck pain on right side Cervicalgia | + + documented in this encounter"
--- OUTSIDE RECORDS SUMMARY | ~2019-10-17 | XMS | Encounter Summary ---
Demographics + + + | Address | [address] | | | [place] [address] | + + + | Home Phone [...] Team Providers + +------+ + | Care Engineer Third Assistant Name | Role | Phone | [...] | | Procedures | [place], | [address] Phone: | | | | | OFFICE VISIT | [place] | [phone] | | | | | REGULAR | [address] | Fax: | | | | | | Phone: | [phone] | | | | | | [phone] | | | | | | | Fax: | | | | | | | [phone] | | +--------+--------+ + + + + Encounter Details +--------+---------+ + + + | Date | Type | Department | Care Team | Description | +--------+---------+ + + + | 10/18/ | Office | [facility] | Elisabet Munson, | Encounter for | | 2014 | Visit | AUDIOLOGY AND | [facility] [address] | hearing evaluation | | | | [facility] | [facility] [address] [facility] | (Primary Dx) | | | | [address] | [place] [address] | | | | | [facility] [address] [facility] | [phone] | | | | | [place] [address] | | | | | | [phone] | | | +--------+---------+ + + + [...] in both ears. Follow-up care with Dr. Chadwick Sr. Thank you. documented in thi s encounter Plan of Treatment +--------+---------+ + + + | Date | Type | Specialty | Care Team | Description | +--------+---------+ + + + | 11/14/ | Office | Internal Medicine | Alanis, | | | 2019 | Visit | | MD Petrona | | | | | | [address] [facility] | | | | | | [place] [address] | | | | | | [phone] | | | | | | | | +--------+---------+ + + + | 12/20/ | Office | Audiology | Elisabet Munson MS | | 2019 | Visit | | [facility] | | | | | | [address] | | | | | | [place] [address] | | | | | | [phone] | | | | | | | | +--------+---------+ + + + | 12/20/ | Office | Otolaryngology | Ulysses Genao MD | | | 2020 | Visit | | [address] [facility] | | | | | | [address] [place], | | | | | | [place] [address] | | | | | | [phone] | | | | | | | [...]
--- OUTSIDE RECORDS SUMMARY | ~2019-10-17 | XMS | Encounter Summary ---
Demographics + + + | Address | [address] | | | [place] [address] | + + + | Home Phone [...] + +------+ + | Care Manager Of Health Name | Role | Phone | [...] + + | 07/30/ | Office | [facility] Center at [facility] | Lukasz Charles, | Major Depressive | | 2006 | Visit | [address] | PhD [address] | Disorder, Recurrent | | | | Mailcode: [facility] | [place], [place] | Episode, Moderate; | | | | [facility] | [address] | Chronic Abdominal | | | | and Healing, | [phone] | Pain; Herniated | | | | Building | | Lumbar | | | | Floor [place], [place] | | Intervertebral Disc | | | | [address] | | L4-5; Spondylosis | | | | [phone] | | with Myelopathy, | | | | | | Lumbar Region; | | | | | | Fibromyalgia [...] this encounter Progress Notes Lukasz Charles - 07/31/2006 10:21 AM PSTPROGRESS NOTE: Belinda Meehan is a 46 y.o. female with head, abdominal, back, and leg pain. She has sym ptoms of depression and anxiety along with her pain. She reported that she has been using r elaxation techniques with limited benefit. She has made an effort to increase her activity level some. We discussed pacing and the need to take regular breaks. We discussed the goal of her maintaining control of her body rather than pain controlling her. She set a goal to go to [place] with a friend and use pacing skills during the trip. Ms. Meehan has depression and frustration. She is having some difficulty increasing her a ctivity level but she is putting forth effort. She appears to have good insight. Diagnosis: [place] I: 1. (296.32) Major depressive disorder, recurrent, moderate. 2. (309.24) Adjustment disorder with anxiety. 3. 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 [place] II: Deferred [place] III: abdominal pain, migraine headache, low back pain. [place] IV: low finances [place] V: GAF 50 Plan: Return in 2 weeks. Check pacing, relaxation, activity. Check trip to [place]. Check mood. Continue cognitive/behavioral therapy. Total time spent with patient was approximately 45 minutes. LUKASZ CHARLES PHD [facility] [address] [facility] [address] [address] documented in this encount er Plan of Treatment + + +--------+ + + | Name | Type | Priori | Associated Diagnoses | Order Schedule | | | | ty | | | + + +--------+ + + | MI PSYCHOTHERPY, | Procedures | Routin | Major Depressive | Ordered: 07/31/2006 | | OFFICE (45-95) | | e | Disorder, Recurrent | | | | | | Episode, Moderate | | | | | | Chronic Abdominal | | | | | | Pain Herniated | | | | | | Lumbar | | | | | | Intervertebral Disc | | | | | | L4-5 Spondylosis | | | | | | with Myelopathy, | | | | | | Lumbar Region | | | | | | Fibromyalgia [...] | Diagnosis | + + | Major Depressive Disorder, Recurrent Episode, Moderate Major depressive disorder, | | recurrent episode, moderate | + + | Chronic Abdominal Pain Abdominal pain, unspecified site | + + | Herniated Lumbar Intervertebral Disc L4-5 Displacement of lumbar intervertebral disc | | without myelopathy | + + | Spondylosis with Myelopathy, Lumbar Region Spondylosis with myelopathy, lumbar region | + + | Fibromyalgia syndrome 729.1 Mylagia and myositis, unspecified | + + | Adjustment Disorder with Anxiety Adjustment disorder with anxiety | + + | Other Pain Disorders Related to Psychological Factors Other pain disorders related to | | psychological factors | + + documented in this encounter"
--- OUTSIDE RECORDS SUMMARY | ~2019-10-17 | XMS | Encounter Summary ---
Demographics + + + | Address | [address] | | | [place] [address] | + + + | Home Phone [...] Providers + +------+ + | Care Body Artist Name | Role | Phone | [...] as of this encounter Progress Notes Interface, Local Superintendent In - 08/19/2005 2:05 AM PST [id number] [facility]AN[facility] Date: 07/29/2005 Clinic: Hematology [...] pursue aggressive iron supplementation. Lukasz Sellers M.D. plater helper [employer] / SHARIF [id number] / [id number] / [id number] / [id number] cc: Pedrito Gutierrez M.D. [address] [place] [address] Electronically signed by Lukasz Sellers 08-18-2005 01:28:12 PM documented i n this encounter Plan of Treatment Not on filedocumented as of this encounter Visit Diagnoses Not on filedocumented in this encounter"
--- OUTSIDE RECORDS SUMMARY | ~2019-10-17 | XMS | Encounter Summary ---
Demographics + + + | Address | [address] | | | [place] [address] | + + + | Home Phone | | + + + | Preferred Language | Unknown | + + + | Marital Status | | + + + | Hindu Affiliation | 1001 | + + + | Race | Unknown | + + + | Ethnic Group | Unknown | + + + Author + + + | Author | [facility] | | | and Jairana | + + + | Organization | [facility] | | | [...] Team Providers + +------+ + | Care Hose Inspector And Patcher Name | Role | Phone | [...] + + | 04/02/ | Telephone | [facility] | Alanis, | Other | | 2018 | | MEDICINE [address] [place] [address] | MD Petrona | | | | | [facility] | [address] [place] [address] | | | | | [place] [address] | [place] [address] | | | | | [phone] | [phone] | | | | | | | [...] Petrona | | | | | | [facility] [address] [place] | | | | | | [place] [address] | | | | | | [phone] | | | | | | | | +--------+---------+ + + + | 12/20/ | Office | Audiology | Elisabet Munson MS | | | 2019 | Visit | | [facility] [address] | | | | | | [place] [address] [place] | | | | | | [place] [address] | | | | | | [phone] | | | | | | | | +--------+---------+ + + + | 12/20/ | Office | Otolaryngology | Ulysses Genao MD | | | 2019 | Visit | | [address] [facility] | | | | | | [address] [place], | | | | | | [place] [address] | | | | | | [phone] | | | | | | | | +--------+---------+ + + + documented as of this encounter Visit Diagnoses Not on filedocumented in this encounter"
--- OUTSIDE RECORDS SUMMARY | ~2019-10-17 | XMS | Encounter Summary ---
Demographics + + + | Address | [address] | | | [place] [address] | + + + | Home Phone [...] + +------+ + | Care Rn Clinical Quality Name | Role | Phone | + [...] + | 02/15/ | Refill | [facility] | Alanis, | Medication Refill | | 2018 | | MEDICINE [address] [place] [address] | MD Petrona | | | | | [facility] | [address] [place] [address] | | | | | [place] [address] | [place] [address] | | | | | [phone] | [phone] | | | | | | | [...] | | | | | [place] [address] | | | | | | [phone] | | | | | | | | +--------+---------+ + + + | 12/20/ | Office | Audiology | Elisabet Munson MS | | | 2019 | Visit | | [facility] [address] | | | | | | [place] [address] [place] | | | | | | [place] [address] | | | | | | [phone] | | | | | | | | +--------+---------+ + + + | 12/20/ | Office | Otolaryngology | Ulysses Genao MD | | | 2020 | Visit | | [address] [facility] | | | | | | [address] [place], | | | | | | [place] [address] | | | | | | [phone] | | | | | | | | +--------+---------+ + + + documented as of this encounter Visit Diagnoses Not on filedocumented in this encounter"
--- OUTSIDE RECORDS SUMMARY | ~2019-10-17 | XMS | Encounter Summary ---
Demographics + + + | Address | [address] | | | [place] [address] | + + + | Home Phone [...] Providers + +------+ + | Care Hoop Cutter Name | Role | Phone | [...] + + | 06/13/ | Refill | [facility] | Alanis, | Medication Refill; | | 2018 | | MEDICINE [address] | MD Petrona | Medication Refill | | | | [facility] | [address] [place] [address] | | | | | [place] [address] | [place] [address] | | | | | [phone] | [phone] | | | | | | | [...] | | | | | [place] [address] | | | | | | [phone] | | | | | | | | +--------+---------+ + + + | 12/20/ | Office | Audiology | Elisabet Munson MS | | | 2019 | Visit | | [facility] [address] | | | | | | [place] [address] [place] | | | | | | [place] [address] | | | | | | [phone] | | | | | | | | +--------+---------+ + + + | 12/20/ | Office | Otolaryngology | Ulysses Genao MD | | | 2019 | Visit | | [address] [place] | | | | | | [address] [place], | | | | | | [place] [address] | | | | | | [phone] | | | | | | | | +--------+---------+ + + + documented as of this encounter Visit Diagnoses Not on filedocumented in this encounter"
--- OUTSIDE RECORDS SUMMARY | ~2019-10-17 | XMS | Encounter Summary ---
Demographics + + + | Address | [address] | | | [place] [address] | + + + | Home Phone [...] Team Providers + +------+ + | Care Structural Rigger Name | Role | Phone | + [...] | | | | Clinical Nutrition | [place], [place] | | | | | [address] | [address] | | | | | Loop Mailcode: OPC5 | [phone] | | | | | Outpatient Clinic | | | | | | [facility] | | | | | | [place] [address] | | | | | | [phone] | | | +--------+ + + + [...] + + + | [facility] | [address] | [place] [address] | | | LABORATORY | | | [...] | uIU/ml | | | | | [facility] | | | | | | Laboratories. | | | | + + + + + + + + | Specimen | + + | | + + + + + + + | Performing | Address | City/State/Zipcode | Phone Number | | Organization | | | | + + + + + | [facility] | [address] | [place] [address] | | | LABORATORY | | | [...] + | [facility] DEPARTMENT OF | [address] | [place] [address] | | | PATHOLOGY | [address] | | | + + + + + | [place] DEPARTMENT OF | [address] | [place] [address] | | | PATHOLOGY | [address] | | | + + + + + documented in this encounter Visit Diagnoses Not on filedocumented in this encounter"
--- OUTSIDE RECORDS SUMMARY | ~2019-10-17 | XMS | Encounter Summary ---
Demographics + + + | Address | [address] | | | [place] [address] | + + + | Home Phone [...] Providers + +------+ + | Care Art History Professor Name | Role | Phone | [...] as of this encounter Progress Notes Interface, Child Care Associate In - 10/03/2006 2:33 AM PDT [id number] GEOVANNI SKELTON J [id number] Clinic Date: 09/14/2006 Clinic: Rheumatology Belinda Meehan [...] every 3 days changed; Trileptal 225 mg; [place] 10/325; and Actonel. Objective: Weight is 214, [...] to this. Caitlin Rivera M.S., F.N.P. / [id number] / [id number] / [id number] / [id number] cc: Pedrito Gutierrez M.D. [address] [facility] [address], [place] [address] [facility] Electronically signed by Caitlin Rivera 10-02-2006 09:24:29 AM documented in this encounter Plan of Treatment Not on filedocumented as of this encounter Visit Diagnoses Not on filedocumented in this encounter"
--- OUTSIDE RECORDS SUMMARY | ~2019-10-17 | XMS | Encounter Summary ---
Demographics + + + | Address | [address] | | | [place] [address] | + + + | Home Phone [...] Providers + +------+ + | Care Concrete Crusher Loader Operator Name | Role | Phone | [...] + + | 03/15/ | Telephone | [facility] | Alanis, | Appointment | | 2018 | | MEDICINE [address] [place] [address] | MD Petrona | | | | | [facility] | [address] [place] [address] | | | | | [place] [address] | [place] [address] | | | | | [phone] | [phone] | | | | | | | [...] | | | | | [place] [address] | | | | | | [phone] | | | | | | | | +--------+---------+ + + + | 12/20/ | Office | Audiology | Elisabet Munson MS | | | 2020 | Visit | | [facility] [address] | | | | | | [place] [address] [place] | | | | | | [place] [address] | | | | | | [phone] | | | | | | | | +--------+---------+ + + + | 12/20/ | Office | Otolaryngology | Ulysses Genao MD | | | 2020 | Visit | | [address] [place] | | | | | | [address] [place], | | | | | | [place] [address] | | | | | | [phone] | | | | | | | | +--------+---------+ + + + documented as of this encounter Visit Diagnoses Not on filedocumented in this encounter"
--- OUTSIDE RECORDS SUMMARY | ~2019-10-17 | XMS | Encounter Summary ---
Demographics + + + | Address | [address] | | | [place] [address] | + + + | Home Phone [...] Team Providers + +------+ + | Care Wheel And Caster Repairer Name | Role | Phone | [...] + + | 02/18/ | Refill | [facility] | Alanis, | Results, Imaging | | 2017 | | MEDICINE [address] [place] [address] | MD Petrona | | | | | [facility] | [address] [place] [address] | | | | | [place] [address] | [place] [address] | | | | | [phone] | [phone] | | | | | | | [...] | | | | | [place] [address] | | | | | | [phone] | | | | | | | | +--------+---------+ + + + | 12/20/ | Office | Audiology | Elisabet Munson MS | | | 2019 | Visit | | [facility] [address] | | | | | | [place] [address] [place] | | | | | | [place] [address] | | | | | | [phone] | | | | | | | | +--------+---------+ + + + | 12/20/ | Office | Otolaryngology | Ulysses Genao MD | | | 2020 | Visit | | [address] | | | | | | [address] [place], | | | | | | [place] [address] | | | | | | [phone] | | | | | | | | +--------+---------+ + + + documented as of this encounter Visit Diagnoses Not on filedocumented in this encounter"
--- OUTSIDE RECORDS SUMMARY | ~2019-10-17 | XMS | Encounter Summary ---
[...] Team Providers + +------+ + | Care Coarse Wire Drawer Name | Role | Phone | + [...] 10/07/ | Office | [facility] at [facility] | Lukasz Charles, | Major Depressive | | 2006 | Visit | [address] | PhD [address] | Disorder, Recurrent | | | | Mailcode: CH15P | [facility] [place] | Episode, Moderate | | | | [facility] | [address] | ([facility]); Spondylosis | | | | and Healing, | [phone] | with Myelopathy, | | | | Building | | Lumbar Region; | | | | Floor [facility] [place] | | Chronic Abdominal | | | | [address] | | Pain; Adjustment | | | | [phone] | | Disorder with | | | [...] will need to continue self-c are. Diagnosis: [place] I: 1. (296.32) Major depressive disorder, recurrent, moderate. 2. (309.24) Adjustment disorder with anxiety. 3. 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 [place] II: Deferred [place] III: abdominal pain, migraine headache, low back pain. [place] IV: low finances [place] V: GAF 50 Plan: Return in 2 weeks. Schedule 4 follow-up appointments. Check preparation for move and for niece's visit. Check [employer] gym, pacing, relaxation, activity, distraction. Check "Managin g Pain..." book. Continue cognitive/behavioral therapy. Total time spent with patient was approximately 45 minutes. LUKASZ CHARLES PHD [facility] [address] [facility] [place] [address] documented in this encount er Plan of Treatment + + +--------+ + + | Name | Type | Priori | Associated Diagnoses | Order Schedule | | | | ty | | | + + +--------+ + + | SD PSYCHOTHERPY, | Procedures | Routin | Major Depressive | Ordered: 10/07/2006 | | OFFICE (45-50) | | e | Disorder, Recurrent | | | | | | Episode, Moderate | | | | | | ([facility]) Spondylosis | | | | | | [...]
--- OUTSIDE RECORDS SUMMARY | ~2019-10-17 | XMS | Encounter Summary ---
Demographics + + + | Address | [address] | | | [place] [address] | + + + | Home Phone [...] Providers + +------+ + | Care Construction Job Titles Name | Role | Phone | + +------+ + | Petrona Thapa | PCP | | | MD | | | + +------+ + Reason for Visit + + + | Reason | Comments | + + + | Medication Refill | | | Assistance | | + + + Encounter Details +--------+ + + + + | Date | Type | Department | Care Team | Description | +--------+ + + + + | 04/29/ | Telephone | [facility] | Alanis, | Medication Refill | | 2017 | | MEDICINE [address] [place] [address] | MD Petrona | Assistance | | | | [facility] | [address] [place] [address] | | | | | [place] [address] | [place] [address] | | | | | [phone] | [phone] | | | | | | | [...] | | | | | | [place] [address] | | | | | | [phone] | | | | | | | | +--------+---------+ + + + | 12/20/ | Office | Audiology | Elisabet Munson MS | | | 2019 | Visit | | [facility] [address] | | | | | | [address] [place] | | | | | | [place] [address] | | | | | | [phone] | | | | | | | | +--------+---------+ + + + | 12/20/ | Office | Otolaryngology | Ulysses Genao MD | | | 2020 | Visit | | [address] [facility] | | | | | | [address] [place], | | | | | | [place] [address] | | | | | | [phone] | | | | | | | | +--------+---------+ + + + documented as of this encounter Visit Diagnoses Not on filedocumented in this encounter"
--- OUTSIDE RECORDS SUMMARY | ~2019-10-17 | XMS | Encounter Summary ---
Demographics + + + | Address | [address] | | | [place] [address] | + + + | Home Phone [...] Team Providers + +------+ + | Care Cerner Analyst Name | Role | Phone | [...] + | 09/30/ | Refill | [facility] | Alanis, | Medication Refill | | 2018 | | MEDICINE [address] [place] [address] | MD Petrona | | | | | [facility] | [address] [place] [address] | | | | | [place] [address] | [place] [address] | | | | | [phone] | [phone] | | | | | | | [...] | | | | | | [place] [address] | | | | | | [phone] | | | | | | | | +--------+---------+ + + + | 12/20/ | Office | Audiology | Elisabet Munson MS | | | 2019 | Visit | | [facility] [address] | | | | | | [place] [address] [place] | | | | | | [place] [address] | | | | | | [phone] | | | | | | | | +--------+---------+ + + + | 12/20/ | Office | Otolaryngology | Ulysses Genao MD | | | 2020 | Visit | | [address] [facility] | | | | | | [address] [place], | | | | | | [place] [address] | | | | | | [phone] | | | | | | | | +--------+---------+ + + + documented as of this encounter Visit Diagnoses Not on filedocumented in this encounter"
--- OUTSIDE RECORDS SUMMARY | ~2019-10-17 | XMS | Encounter Summary ---
Demographics + + + | Address | [address] | | | [place] [address] | + + + | Home Phone [...] Providers + +------+ + | Care Dairy Farmer Name | Role | Phone | [...] + + | 03/02/ | Office | [facility] | Emmy-Jeffti, | Neck pain on right | | 2018 | Visit | MEDICINE [address] | MD Petrona | side (Primary Dx); | | | | [address] [place] | [address] [place] | Primary stabbing | | | | [place] [address] | [place] [address] | headache; | | | | [phone] | [phone] | Non-intractable | | | | | [...] Medical Student - 03/02/2018 9:30 AM PDT [facility] PROGRESS NOTE Pt. Name/Age/: Belinda Meehan 58 y.o. 1960 Med. Record Number: [id number] HPI: Belinda Meehan is a 58 y.o. [...] insufficiency Coccydynia COPD (chronic obstructive pulmonary disease) ([facility]) Depression Diarrhea Dumping syndrome Fall at home Fatigue fracture of vertebra Fibromyalgia Full dentures GERD (gastroesophageal reflux disease) Glaucoma Hyperparathyroidism ([facility]) Hypothyroidism IBS (irritable bowel syndrome) Idiopathic scoliosis Leg edema Low back pain Lumbar postlaminectomy syndrome Lumbar radiculopathy primarily right 01/04/2015 Meniere syndrome Migraine with aura Migraines Muscle cramping Muscle spasm Myalgia Nonalcoholic hepatosteatosis Obesity Opioid dependence ([facility]) Orthostatic hypotension OLIVER (obstructive sleep apnea) Osteoarthritis, generalized Osteopenia Osteoporosis Peripheral neuropathy Rheumatoid arthritis ([facility]) Right arm pain 01/04/2015 RLS (restless legs syndrome) S/P lumbar fusion 01/04/2015 Scoliosis Sleep apnea Spondylosis with myelopathy, lumbar region Stroke ([facility]) Syncope Tremor Type II or unspecified type diabetes mellitus with other specified manifestations, not stated as uncontrolled 05/04/2017 Vitamin D deficiency Past Surgical History: Procedure Laterality Date ADENOIDECTOMY APPENDECTOMY BREAST LUMPECTOMY Left 2002 CARPAL TUNNEL RELEASE 2002 SECTION CHOLECYSTECTOMY 2004 COLONOSCOPY N/A 12/18/2017 Procedure: COLONOSCOPY; Surgeon: Luther Brito MD; Location: [facility] MEDICAL PROCEDURE UNIT DILATION AND CURETTAGE OF UTERUS ELBOW SURGERY FINGER TRIGGER RELEASE 2003 FINGER TRIGGER RELEASE 2010 GASTRIC BYPASS SURGERY 2004 HYSTERECTOMY 05/14/1980 JOINT REPLACEMENT Bilateral 2007,2008 KNEE ARTHROSCOPY 2005 LAPAROSCOPY 01/27/2015 LAPAROTOMY 2008 ROTATOR CUFF REPAIR 2005 SPINE SURGERY TONSILLECTOMY 1964 UPPER GASTROINTESTINAL ENDOSCOPY N/A 12/18/2017 Procedure: EGD; Surgeon: Luther Brito MD; Location: [facility] MEDICAL PROCEDURE UNIT Allergies Allergen Reactions Levofloxacin Hives,Itching,Rash Jjftwnhlkq-Hijc-Kltsedob Hives,Rash Cephalexin Hives Ciprofloxacin Hives,Rash Clarithromycin Hives,Rash [...] | | | | | | [place] [address] | | | | | | [phone] | | | | | | | | +--------+---------+ + + + | 12/20/ | Office | Audiology | Elisabet Munson MS | | | 2019 | Visit | | [facility] [address] | | | | | [address] [place] | | | | | | [place] [address] | | | | | | [phone] | | | | | | | | +--------+---------+ + + + | 12/20/ | Office | Otolaryngology | Ulysses Genao MD | | | 2019 | Visit | | [address] | | | | | | [address] [place], | | | | | | [place] [address] | | | | | | [phone] | | | | | | | [...] 9 | 7 - 18 mg/dL | [facility] | | | | | | [facility] | | | | | | [facility]ICAL | | | | | | CENTER - | | | | | | LABORATORY | | + + + + + + | Creatinine | 0.83 | 0.60 - 1.30 | [facility] | | | | | mg/dL | [facility] | | | | | | MEDICAL | | | | | | CENTER - | | | | | | LABORATORY | | + + + + + + | eGFR if not | >60Comment: GLOMERULAR | >=60 | [facility] | | | | FILTRATION | mL/min/1.73m2 | [facility] | | | [place] | RATE,ESTIMATED | | MEDICAL | | | | mL/min/1.21j8Vgsa than | | CENTER - | | [...] [address] | [place] | [phone] | | [facility] | | [address] | | | - LABORATORY | | [...] | | | | | M/uL | [facility] | | | | | | MEDICAL | | | | | | CENTER - | | | | | | LABORATORY | | + + + + + + | Hemoglobin | 15.2 | 11.5 - 16.0 | [facility] | | | | | g/dL | [facility] | | | | | [...] | | | Eosinophils | | | [facility] | | [...] [address] | [place] | [phone] | | [facility] | | [address] | | | - LABORATORY | | [...] [address] | [place] | [phone] | | [facility] | | [address] | | | - LABORATORY | | [...]
--- OUTSIDE RECORDS SUMMARY | ~2019-10-17 | XMS | Encounter Summary ---
Demographics + + + | Address | [address] | | | [place] [address] | + + + | Home Phone [...] Team Providers + +------+ + | Care Corrections Officer Name | Role | Phone | + +------+ + | Maria Esther Cintron MD | PCP | | + +------+ + Encounter Details +--------+ + + + + | Date | Type | Department | Care Team | Description | +--------+ + + + + | 10/11/ | Abstract | [facility] | Patricia Banegas, | | | 2012 | | Center at [facility] [address] | [place] [address] | | | | | Sara Kovacs | , [address] | | | | | Mailcode: Center | [place], [place] | | | | | [facility] | [address] | | | | | Healing, [address] | [phone] | | | | | [place], [place] | | | | | | [address] | | | | | | [phone] | | | +--------+ + + + [...]
--- OUTSIDE RECORDS SUMMARY | ~2019-10-17 | XMS | Encounter Summary ---
Demographics + + + | Address | [address] | | | [place] [address] | + + + | Home Phone [...] Team Providers + +------+ + | Care Mutton Puncher Name | Role | Phone | + [...] | | | | | | | [address] | | | | | | | [address] | | | | | | | [facility] | | | | | | | [place], [place] | | | | | | | [address] | | | | | | | Phone: | | | | | | | [phone] | | | | | | | Fax: | | | | | | | [phone] | +--------+--------+ + + + + Encounter Details +--------+ + + + + | Date | Type | Department | Care Team | Description | +--------+ + + + + | 02/22/ | Hospital | [facility] [address] | Hai Hoyos, | | | 2008 | Encounter | [address] | | | | | | [address] | | | | | | [place], | | | | | | [place] [address] | | | | | | [phone] | | | +--------+ + + + [...] Brief Hospital Course: Patient was admitted to [facility] short stay surgery. Patient was taken to [...] business hours at or page the orthopedist customer response representative after regular business hours at [phone]. If you have any of the following: [...] at . Follow Up Tests: (Tests at [facility] must be entered into [employer]) none Condition On Discharge: stable Vital Signs [...] Brief Hospital Course: Patient was admitted to [facility] short stay surgery. Patient was taken to [...] business hours at or page the orthopedist customer response representative after regular business hours at [phone]. If you have any of the following: [...] at . Follow Up Tests: (Tests at [facility] must be entered into [employer]) none Condition [...] Mode of Transportation: Car Accompanied by: Family/Responsible Alliance Party Discharge Nurse: LONI KOWALSKI RN Date: [...] | [facility] | [address] | [place] [address] | | | PATHOLOGY | [address] [...] | [facility] | [address] | [place] [address] | | | PATHOLOGY | [address] [...] | | | | | performed at [place] | | | | | | [facility] | | | | | | Laboratory. | | | | + + + + + + + + | Specimen | + + | | + + + + + + + | Performing | Address | City/State/Zipcode | Phone Number | | Organization | | | | + + + + + | [facility] | [address] | [place] [address] | | | PATHOLOGY | [address] [...] | [facility] | [address] | [place] [address] | | | PATHOLOGY | [address] [...] | | | | | performed at [place] | | | | | | [facility] | | | | | | Laboratory | | | | + + + + + + + + | Specimen | + + | | + + + + + + + | Performing | Address | City/State/Zipcode | Phone Number | | Organization | | | | + + + + + | [facility] | [address] | [place] [address] | | | PATHOLOGY | [address] [...] | [facility] | [address] | [place] [address] | | | PATHOLOGY | [address] [...] Lab) | | | | | | [facility] | | | | | | [address] [address] | | | | | [address] | | | | | | [place] [address] | | | | + + + + + + + + | Specimen | + + | | + + + + + + + | Performing | Address | City/State/Zipcode | Phone Number | | Organization | | | | + + + + + | [facility] | [address] | [place] [address] | | | PATHOLOGY | [address] [...] Performed At | + + + | [id number] | | | [id number] | | | [place] [address] | | | Date: 02/22/2009 Attending Surgeon: | | | Hai Hoyos MD Farmworker Field Crop(s): | | | Shantel Whipple Preoperative | | | Diagnosis(es): Left symptomatic scapula lesion. Postoperative | | | Diagnosis(es): Left symptomatic scapula lesion. Procedures | | | Performed: 1. Curettage and bone grafting of the left scapular | | | lesion. 2. Open biopsy, left scapular lesion. | | | Donna Clancy served as my educational assistant teacher because no other qualified | | | [...] | aforementioned. MD ARTIS Wei / SHARIF [id number] / | | | [id number] / [id number] / | | + + + + + | Procedure Note | + + | Hai Hoyos MD - 02/22/2009 12:00 AM PDT [id number] | | [id number] [place] | | [id number] Date: 02/22/2009 Attending Surgeon: Hai | | MD Romain Farmworker Field Crop(s): Raj Whipple. Preoperative | | Diagnosis(es):Left symptomatic scapula lesion. Postoperative Diagnosis(es):Left | | symptomatic scapula lesion. Procedures Performed:1. Curettage and bone grafting of | | the left scapular lesion.2. Open biopsy, left scapular lesion. Donna Clancy | | served as my educational assistant teacher because no other qualified help wasavailable. Anesthesia:General [...] plan is as aforementioned. CHARU Wei / [id number] / [id number] / [id number] /D: | | 02/22/2009T: 02/22/2009 | | [...] |Hai Hoyos MD | |ZA / | |[id number] / [id number] / [id number] / | | | | | | [...] + + + + + | [facility] DEPARTMENT OF | [address] | [place] [address] | | | PATHOLOGY | [address] | | | + + + + + | [facility] DEPARTMENT OF | [facility] | [place] [address] | | | PATHOLOGY | [address] [...]
--- OUTSIDE RECORDS SUMMARY | ~2019-10-17 | XMS | Encounter Summary ---
Demographics + + + | Address | [address] | | | [place] [address] | + + + | Home Phone [...] Team Providers + +------+ + | Care Natural Gas Engineer Name | Role | Phone | [...] + + | 06/21/ | Office | [facility] Comprehensive | Delfina Molina, | LBP (Low Back Pain) | | 2008 | Visit | Pain Center at | ANP | (Primary Dx); Spinal | | | | [facility] | | Fusion Lumbar spine | | | | [address] | | ; Hx Arthroplasty | | | | Mailcode: CH15P | | of both Knees; | | | | Center for [facility] | | Fibromyalgia | | | | and Healing, | | syndrome 729.1; | | | | | | Abdominal Pain, | | | | Floor [place], [place] | | dumping syndrome Hx | | | | [address] | | of gastric bypass; | | | | [phone] | | Dumping Syndrome; | | | [...] Belinda Meehan is a 48 y.o. female [facility] [...] removal on 05/15/2008 Dr. Betty Thomas MD [facility], after having problems with nu mbness, [...] a migraine sp ecialist this week in [place], Dr Lucio Nichols. Next area of chronic [...] drawing has be completed, which I reviewed. [facility] Brief Pain Inventory: (ten= worst [...] 3. Mental Health care: Dr Ogden psychology [facility] last visit [...] 300 mg) by oral route once daily vvhrtrohef-cyfjdflgdsfim-kykpguvx (FIORICET) 50-325-40 mg Oral Tablet take 2 [...] 278 01/18 Paniculectomy Hx lumbar fusion 05/2008 L1-J1rqbvff with bone spur removals Family History Problem [...] psychologist when ever sh e comes to [place] for medical care. She has a strong [...] with any concerns or questions. DELFINA MOLINA [facility] Mail code CH 4P [facility] [address] [facility] [address] Ty Mendez - 12/2008 9:11 AM PSTCMA History: PMH/PSH/SH/FH review Patient had lumbar fusion in May 22. She also reports tooth abcess. She has script for an tibiotic tx waiting for her in [place]. 1. Has your pain changed from your [...]
--- OUTSIDE RECORDS SUMMARY | ~2019-10-17 | XMS | Encounter Summary ---
Demographics + + + | Address | [address] | | | [place] [address] | + + + | Home Phone [...] Team Providers + +------+ + | Care Algology Teacher Name | Role | Phone | + +------+ + | Petrona Thapa | PCP | | | MD | | | + +------+ + Reason for Visit + + + | Reason | Comments | + + + | Paperwork | | + + + | Pre-Op | | + + + Encounter Details +--------+ + + + + | Date | Type | Department | Care Team | Description | +--------+ + + + + | 04/25/ | Telephone | [facility] | Alanis, | Paperwork; Pre-Op | | 2018 | | MEDICINE [address] [place] [address] | MD Petrona | | | | | [facility] | [address] [place] [address] | | | | | [place] [address] | [place] [address] | | | | | [phone] | [phone] | | | | | | | [...] | | | | | | [place] [address] | | | | | | [phone] | | | | | | | | +--------+---------+ + + + | 12/20/ | Office | Audiology | Elisabet Munson MS | | | 2019 | Visit | | [facility] [address] | | | | | | [place] [address] [place] | | | | | | [place] [address] | | | | | | [phone] | | | | | | | | +--------+---------+ + + + | 12/20/ | Office | Otolaryngology | Ulysses Genao MD | | | 2020 | Visit | | [address] [facility] | | | | | | [address] [place], | | | | | | [place] [address] | | | | | | [phone] | | | | | | | | +--------+---------+ + + + documented as of this encounter Visit Diagnoses Not on filedocumented in this encounter"
--- OUTSIDE RECORDS SUMMARY | ~2019-10-17 | XMS | Encounter Summary ---
Demographics + + + | Address | [address] | | | [place] [address] | + + + | Home Phone [...] Team Providers + +------+ + | Care Correctional Case Manager Name | Role | Phone [...] | | | | Clinical Nutrition | [place], [place] | | | | | [address] | [address] | | | | | Loop Mailcode: OPC5 | [phone] | | | | | Outpatient Clinic | | | | | | [facility] | | | | | | [place] [address] | | | | | | [phone] | | | +--------+ + + + [...] | | | | | performed by [facility] | | | | | [...] [facility] | [address] | [place], [place] | | | [facility] | | [address] | | + + + + + HEMOGLOBIN A1C (05/31/2002 3:21 PM PST) + + + + + + | Component | Value | Ref Range | Performed | Pathologist | | | | | At | Signature | + + + + + + | HEMOGLOBIN | 6.0Comment: Test | <7.1 % | | | | A1C | performed by [place] | | | | | | [facility] | | | | | [...] + + + + + | [facility] | [address] | [place] [address] | | | LABORATORY | | | [...] + + + | [facility] DEPARTMENT OF | [address] | [place] [address] | | | PATHOLOGY | [address] | | | + + + + + | [facility] DEPARTMENT OF | [address] | [place] [address] | | | PATHOLOGY | [address] [...] + + + | [facility] | [address] | [place] [address] | | | PATHOLOGY | [address] | | | + + + + + | [facility] | [address] [facility] | [place] [address] | | | PATHOLOGY | [address] | | | + + + + + documented in this encounter Visit Diagnoses Not on filedocumented in this encounter"
--- OUTSIDE RECORDS SUMMARY | ~2019-10-17 | XMS | Encounter Summary ---
Demographics + + + | Address | [address] | | | [place] [address] | + + + | Home Phone [...] Providers + +------+ + | Care Family Practitioner Name | Role | Phone | + +------+ + | Petrona Thapa | PCP | | | MD | | | + +------+ + Encounter Details +--------+ + + + + | Date | Type | Department | Care Team | Description | +--------+ + + + + | 12/01/ | Episode | [facility] | Dixie Salomon H, | | | 2017 | Changes | GASTROENTEROLOGY | RN | | | | | [address] | | | | | | [address] [place] | | | | | | [address] | | | | | | [phone] | | | +--------+ + + + [...] | | | | | [place] [address] | | | | | | [phone] | | | | | | | | +--------+---------+ + + + | 12/20/ | Office | Audiology | Elisabet Munson MS | | | 2019 | Visit | | [facility] [address] | | | | [address] [place] | | | | | | [place] [address] | | | | | | [phone] | | | | | | | | +--------+---------+ + + + | 12/20/ | Office | Otolaryngology | Ulysses Genao MD | | | 2019 | Visit | | [address] | | | | | | [address] [place], | | | | | | [place] [address] | | | | | | [phone] | | | | | | | | +--------+---------+ + + + documented as of this encounter Visit Diagnoses Not on filedocumented in this encounter"
--- OUTSIDE RECORDS SUMMARY | ~2019-10-17 | XMS | Encounter Summary ---
Demographics + + + | Address | [address] | | | [place] [address] | + + + | Home Phone [...] + +------+ + | Care Professor Of Literacy Name | Role | Phone | + [...]
--- OUTSIDE RECORDS SUMMARY | ~2019-10-17 | XMS | Encounter Summary ---
Demographics + + + | Address | [address] | | | [place] [address] | + + + | Home Phone [...] Team Providers + +------+ + | Care Clearing Tub Worker Name | Role | Phone | [...] as of this encounter Discharge Summaries Interface, Disposal Operator In - 08/30/2005 2:07 AM PST [id number] [place] Admission Date: 07/24/2005 Discharge Date: [...] for an appointment. Joanna Ritchie M.D. / [id number] / [id number] / [id number] / Electronically signed by Chris Padgett 08-29-2005 03:28:23 PM documented i n this encounter Plan of Treatment Not on filedocumented as of this encounter Visit Diagnoses Not on filedocumented in this encounter"
--- OUTSIDE RECORDS SUMMARY | ~2019-10-17 | XMS | Encounter Summary ---
Demographics + + + | Address | [address] | | | [place] [address] | + + + | Home Phone [...] Team Providers + +------+ + | Care Irrigation Equipment Installer Name | Role | Phone | [...] | | | | Clinical Nutrition | [place], [place] | | | | | [address] | [address] | | | | | Loop Mailcode: OPC5 | [phone] | | | | | Outpatient Clinic | | | | | | [facility] | | | | | | [place] [address] | | | | | | [phone] | | | +--------+ + + + [...] Blood Test performed by | | | [facility]. | | + + + + + + + + | Performing | Address | City/State/Zipcode | Phone Number | | Organization | | | | + + + + + | [facility] | [address] | [place] [address] | | | LABORATORY | | | [...] + + + | [facility] | [address] | [place] [address] | | | LABORATORY | | | | + + + + + documented in this encounter Visit Diagnoses Not on filedocumented in this encounter"
--- OUTSIDE RECORDS SUMMARY | ~2019-10-17 | XMS | Encounter Summary ---
Demographics + + + | Address | [address] | | | [place] [address] | + + + | Home Phone [...] Team Providers + +------+ + | Care Monorail Charger Operator Name | Role | Phone | [...] + + | 07/30/ | Office | [facility] Comprehensive | Delfina Molina, | Cervical Spondylosis | | 2006 | Visit | Pain Center at | ANP | without Myelopathy | | | [facility] | | (Primary Dx); Right | | | | [address] | | shoulder rotator | | | | Mailcode: CH15P | | cuff strain; | | | | [place] for [facility] | | Spondylosis with | | | | and Healing, | | Myelopathy, Lumbar | | | | Building | | Region; Herniated | | | | Floor [place], [place] | | Lumbar | | | | [address] | | Intervertebral Disc | | | | [phone] | | L4-5; Migraine | | | [...] Belinda Meehan is a 46 y.o. female [facility] Return Visit Chief Complaint: Chief [...] these have helped improve function but not long term care administrator, and she reports sleeping poorly due to pain disru ption since prior visit. Since prior visit she had a 06/24/06: Bone density study and her T-Score -1.2 lumbar spine a nd -2.2 proximal femur. Collection Information Collection Date Collection Time Resulting Agency 03/10/2006 2:42 PM [facility] DEPARTMENT OF PATHOLOGY Component Results Component Value Range Status CALCIUM (LAB) 9.5 8.5 - 10.5 mg/dL Fin SPINE LUMBAR 2 VIEWS AT 1421 HOURS LUMBAR SPINE, 10/01/05 HISTORY: Back pain. FINDINGS: AP and lateral views of the lumbar spine show five wnn-bfi-vufyaiq lumbar vertebrae in normal alignment with no [...] spent in reviewing of chart, imaging and addiction counselor ing/coordindation of care. 1. For the [...] Patient agreed to follow up with Dr. Padgett to furtheur evaluate reasons for bone loss and treat . 7. Follow up in two weeks or sooner if needed 8. To ensure appropriate care and safety for your patient, [facility] r equires a primary care [...] Please indicate and fax your response to [phone]. I called and left a message on [facility] general voice mail requesting he call me to discuss prescribing and patient care. DELFINA MOLINA [facility] Mail code CH 4P [facility] and [address] [address] aurav Tasha - 07/30/2006 7:35 [...] | | + +---------+ + + | [facility] DEPARTMENT OF | | | [...]
--- OUTSIDE RECORDS SUMMARY | ~2019-10-17 | XMS | Encounter Summary ---
Demographics + + + | Address | [address] | | | [place] [address] | + + + | Home Phone [...] Team Providers + +------+ + | Care Pattern And Chain Maker Name | Role | Phone | [...] + + | 01/11/ | Office | [facility] Comprehensive | Delfina Molina, | Left Knee Pain; DJD | | 2006 | Visit | Pain Center at | ANP | (Degenerative Joint | | | | [facility] | | Disease) of Knee; | | | | [address] | | Herniated Lumbar | | | | Mailcode: CH15P | | Intervertebral Disc | | | | [facility] | | L4-5; Spondylosis | | | | and Healing, | | with Myelopathy, | | | | Building | | Lumbar Region; | | | | Floor [place], [place] | | Fibromyalgia | | | | [address] | | syndrome 729.1; | | | | [phone] | | Encounter for | | | [...] 12/19. documented in this encounter Progress Notes PetraInesDelfina - 01/11/2007 3:04 PM PDTFormatting of this note might be different from lesli gomez. 01/11/2007 Belinda Meehan is a 46 y.o. female [facility] Comprehensive Pain Center Return Visit [...] pain working with exercises and her special procedures technologist. Belinda Meehan is here today for a [...] to review . Belinda remineded to ca in for your prescriptions 7 days before the due. 4. Continue with outside PT and Independent Home Exercise Program until surgery pending 02/13 12/19. DELFINA MOLINA [facility] Comprehensive Pain Center Mail code CH 4P [place] [facility] and [address] [address] Ailyn Foster - 01/12/20 07 [...]
--- OUTSIDE RECORDS SUMMARY | ~2019-10-17 | XMS | Encounter Summary ---
Demographics + + + | Address | [address] | | | [place] [address] | + + + | Home Phone [...] Team Providers + +------+ + | Care Hydrology Technician Name | Role | Phone | [...] Description | +--------+--------+ + + + | 02/03/ | Refill | [facility] | Alanis, | Medication Refill | | 2017 | | MEDICINE [address] [place] [address] | MD Petrona | | | | | [facility] | [address] [place] [address] | | | | | [place] [address] | [place] [address] | | | | | [phone] | [phone] | | | | | | | [...] | | | | | [place] [address] | | | | | | [phone] | | | | | | | | +--------+---------+ + + + | 12/20/ | Office | Audiology | Elisabet Munson MS | | | 2019 | Visit | | [facility] [address] | | | | | | [place] [address] [place] | | | | | | [place] [address] | | | | | | [phone] | | | | | | | | +--------+---------+ + + + | 12/20/ | Office | Otolaryngology | Ulysses Genao MD | | | 2020 | Visit | | [address] [facility] | | | | | | [address] [place], | | | | | | [place] [address] | | | | | | [phone] | | | | | | | | +--------+---------+ + + + documented as of this encounter Visit Diagnoses Not on filedocumented in this encounter"
--- OUTSIDE RECORDS SUMMARY | ~2019-10-17 | XMS | Encounter Summary ---
Demographics + + + | Address | [address] | | | [place] [address] | + + + | Home Phone [...] Team Providers + +------+ + | Care Eyewear Manufacturing Tech Name | Role | Phone | [...] + + | 07/01/ | Telephone | [facility] INTER[facility] | Alanis, | Foot Pain | | 2018 | | MEDICINE [address] [place] [address] | MD Petrona | | | | | [facility] | [address] [place] [address] | | | | | [place] [address] | [place] [address] | | | | | [phone] | [phone] | | | | | | | [...] | | | | | [place] [address] | | | | | | [phone] | | | | | | | | +--------+---------+ + + + | 12/20/ | Office | Audiology | Elisabet Munson MS | | | 2019 | Visit | | [facility] [address] | | | | | | [place] [address] [place] | | | | | | [place] [address] | | | | | | [phone] | | | | | | | | +--------+---------+ + + + | 12/20/ | Office | Otolaryngology | Ulysses Genao MD | | | 2020 | Visit | | [address] [facility] | | | | | | [address] [place], | | | | | | [place] [address] | | | | | | [phone] | | | | | | | | +--------+---------+ + + + documented as of this encounter Visit Diagnoses Not on filedocumented in this encounter"
--- OUTSIDE RECORDS SUMMARY | ~2019-10-17 | XMS | Encounter Summary ---
Demographics + + + | Address | [address] | | | [place] [address] | + + + | Home Phone [...] Team Providers + +------+ + | Care School Age Lead Teacher Name | Role | Phone | [...] | | [facility] | [place], [place] | | | | | [address] | [address] | | | | | [address] | [phone] | | | | | [facility] | | | | | | Physician's | | | | | | Pavilion [place], | | | | | | [place] [address] | | | | | | [phone] | | | +--------+--------+ + + + [...]
--- OUTSIDE RECORDS SUMMARY | ~2019-10-17 | XMS | Encounter Summary ---
Demographics + + + | Address | [address] | | | [place] [address] | + + + | Home Phone [...] Providers + +------+ + | Care Geospatial Program Management Officer Name | Role | Phone [...] [address] | | | | | [place], [place] | [place] | | | | | [address] | [address] | | | | | [phone] | [phone] | | | | | | | [...] + + + + | [facility] | [address] | [place] [address] | | | PATHOLOGY | [address] | | | + + + + + | [facility] | [address] | [place] [address] | | | PATHOLOGY | [address] [...] + + + + | [facility] DEPARTMENT OF | [address] | [place] [address] | | | PATHOLOGY | [address] | | | + + + + + | [place] DEPARTMENT OF | [address] | [place] [address] | | | PATHOLOGY | [address] [...] + + + + | [facility] DEPARTMENT OF | [address] [facility] | [place] [address] | | | PATHOLOGY | [address] | | | + + + + + | [facility] DEPARTMENT OF | [address] [facility] | [place] [address] | | | PATHOLOGY | [address] [...] + + + + | [facility] | [address] [place] [address] | [place] [address] | | | PATHOLOGY | [address] | | | + + + + + | [facility] DEPARTMENT OF | [facility] | [place] [address] | | | PATHOLOGY | [address] | | | + + + + + documented in this encounter Visit Diagnoses Not on filedocumented in this encounter"
--- OUTSIDE RECORDS SUMMARY | ~2019-10-17 | XMS | Encounter Summary ---
Demographics + + + | Address | [address] | | | [place] [address] | + + + | Home Phone [...] Team Providers + +------+ + | Care Locomotive Boilermaker Name | Role | Phone | + [...] + + | 03/02/ | Office | [facility] | Emmy-Jeffti, | Neck pain on right | | 2018 | Visit | MEDICINE [address] | MD Petrona | side (Primary Dx); | | | | [address] [place] | [address] [place] | Primary stabbing | | | | [place] [address] | [place] [address] | headache; | | | | [phone] | [phone] | Non-intractable | | | | | [...] Medical Student - 03/02/2018 9:30 AM PDT [facility] PROGRESS NOTE Pt. Name/Age/: Belinda Meehan 58 y.o. 1960 Med. Record Number: [id number] HPI: Belinda Meehan is a 58 y.o. [...] Procedure: COLONOSCOPY; Surgeon: Luther Brito MD; Location: [facility] MEDICAL PROCEDURE UNIT DILATION AND CURETTAGE OF UTERUS ELBOW SURGERY FINGER TRIGGER RELEASE 2003 FINGER TRIGGER RELEASE 2010 GASTRIC BYPASS SURGERY 2004 HYSTERECTOMY 05/14/1980 JOINT REPLACEMENT Bilateral 2007,2008 KNEE ARTHROSCOPY 2005 LAPAROSCOPY 01/27/2015 LAPAROTOMY 2008 ROTATOR CUFF REPAIR 2005 SPINE SURGERY TONSILLECTOMY 1964 UPPER GASTROINTESTINAL ENDOSCOPY N/A 12/18/2017 Procedure: EGD; Surgeon: Luther Brito MD; Location: [facility] MEDICAL PROCEDURE UNIT Allergies Allergen Reactions Levofloxacin Hives,Itching,Rash Nuaykszxbv-Lbzq-Qgboypsk Hives,Rash Cephalexin Hives Ciprofloxacin Hives,Rash Clarithromycin Hives,Rash [...] | | | | | [place] [address] | | | | | | [phone] | | | | | | | | +--------+---------+ + + + | 12/20/ | Office | Audiology | Elisabet Munson MS | | | 2019 | Visit | | [facility] [address] | | | | | | [address] [place] | | | | | | [place] [address] | | | | | | [phone] | | | | | | | | +--------+---------+ + + + | 12/20/ | Office | Otolaryngology | Ulysses Genao MD | | | 2019 | Visit | | [address] | | | | | | [address] [place], | | | | | | [place] [address] | | | | | | [phone] | | | | | | | [...] 9 | 7 - 18 mg/dL | [facility] | | | | | | [facility] | | | | | | MEDICAL | | | | | | CENTER - | | | | | | LABORATORY | | + + + + + + | Creatinine | 0.83 | 0.60 - 1.30 | [facility] | | | | | mg/dL | [facility] | | | | | | MEDICAL | | | | | | CENTER - | | | | | | LABORATORY | | + + + + + + | eGFR if not | >60Comment: GLOMERULAR | >=60 | [facility] | | | | FILTRATION | mL/min/1.73m2 | Yudy NATHAN | | | NIGERIAN | RATE,ESTIMATED | | MEDICAL | | | | mL/min/1.75b2Ahrl than | | CENTER - | | [...] [address] | [place] | [phone] | | [facility] | | [address] | | | - LABORATORY | | [...] [address] | [place] | [phone] | | [facility] | | [address] | | | - LABORATORY | | [...] [address] | [place] | [phone] | | [facility] | | [address] | | | - LABORATORY | | [...]
--- OUTSIDE RECORDS SUMMARY | ~2019-10-17 | XMS | Encounter Summary ---
Demographics + + + | Address | [address] | | | [place] [address] | + + + | Home Phone [...] Providers + +------+ + | Care Band Instrument Repairer Name | Role | Phone | [...] 10/28/ | Office | Pain Center at [facility] | Lukasz Charles, | Major Depressive | | 2006 | Visit | [address] | PhD [address] | Disorder, Recurrent | | | | Mailcode: CH15P | [place], [place] | Episode, Moderate | | | | [place] [facility] | [address] | ([facility]); Neck Pain; | | | | and Healing, | [phone] | Herniated Lumbar | | | | Building | | Intervertebral Disc | | | | Floor [place], [place] | | L4-5; 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 She has been doing cross stitch [...] She has using good self-care skills. Diagnosis: Moro I: 1. (296.32) Major depressive disorder, recurrent, moderate. 2. (309.24) Adjustment disorder with anxiety. 3. 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 Moro II: Deferred Moro III: abdominal pain, migraine headache, low back pain. Moro IV: low finances Moro V: GAF 50 Plan: Return in 2 weeks. Check preparation for move and for niece's visit, results of orthopedic visit. Check pacing, relaxation, activity, distraction. Continue cognitive/behavioral the rapy. Total time spent with patient was approximately 45 minutes. LUKASZ CHARLES [facility] [address] [facility], 4th [place] [address] documented in this encount er Plan of Treatment + + +--------+ + + | Name | Type | Priori | Associated Diagnoses | Order Schedule | | | | ty | | | + + +--------+ + + | [place] [facility]YCHOTHER[facility], | Procedures | Routin | Major [...]
--- OUTSIDE RECORDS SUMMARY | ~2019-10-17 | XMS | Encounter Summary ---
Demographics + + + | Address | [address] | | | [place] [address] | + + + | Home Phone [...] Providers + +------+ + | Care Inspector Government Property Name | Role | Phone | + [...] | | Essential | | | | [place], [place] | | hypertension 401.9; | | | | [address] | | Type II or | | | | [phone] | | unspecified type | | | [...] | | | LABORATORY | | | QATARI | | | SERVICES, | | | [...] | + + + + + | [facility] | [address] | [place] [address] | | | SERVICES, CORE | [address] [...] + + + + + | [facility] | [address] | [place] [address] | | | SERVICES, CORE | [address] [...] | | If you are | | PEARCY | | | | screening for diabetes: [...] + | [facility] - | [address] | [place] [address] | | | [place] | | | [...] [facility] | [address] | [place] [address] | | | SERVICES, SPECIAL | PARK [...] + + + + + | [facility] | [address] | [place] [address] | | | SERVICES, CORE | [address] [...] [facility] | [address] | [place] [address] | | | SERVICES, SPECIAL | KEAGAN [...] by | | | | | | [employer],[address] | | | | | | Abdiaziz Morales, [facility] | | | | | | [address] | | | | | | [phone][employer]. | | | | | | Get [...] [facility] | [address] | [place], [place] | | | [facility] | | [address] | | + + + + + [...] | + + + + + | [facility] | [address] | [place] [address] | | | SERVICES, SPECIAL | [address] [...] + | [facility] | [address] | [place] [address] | | | [place]Y | | | | + + + [...]
--- OUTSIDE RECORDS SUMMARY | ~2019-10-17 | XMS | Encounter Summary ---
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 Diagnosis: Tenmile I: 1. (296.32) Major depressive disorder, recurrent, moderate. 2. (309.24) Adjustment disorder with anxiety. 3. 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 Tenmile II: Deferred Tenmile III: abdominal pain, migraine headache, low back pain. Tenmile IV: low finances Tenmile V: GAF 55-60 Plan: Return in 2 weeks. Check niece's visit, pacing, relaxation, activity, distraction. Contin ue cognitive/behavioral therapy. Total time spent with patient was approximately 45 minutes. LUKASZ CHARLES [facility] [address] [facility], 4th [place] [address] documented in this encount er Plan of Treatment + + +--------+ + + | Name | Type | Priori | Associated Diagnoses | Order Schedule | | | | ty | | | + + +--------+ + + | [place] [facility]YCHOTHER[facility], | Procedures | Routin | Major [...]
--- OUTSIDE RECORDS SUMMARY | ~2019-10-17 | XMS | Encounter Summary ---
Demographics + + + | Address | [address] | | | [place] [address] | + + + | Home Phone [...] Providers + +------+ + | Care Maintenance Mechanic Helper Name | Role | Phone [...] 2007 | Visit | Rheumatology [address] | syndrome 729.1 | | | | [address] | | (Primary Dx) | | | | Mailcode: OPC5 | | | | | | Outpatient Clinic | | | | | | Building [place], | | | | | | [place] [address] | | | | | | [phone] | | | +--------+---------+ + + + [...] have much room. 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 There is a disc bulge [...] 07/05/2007 56.0 15.0-75.0 Final Test performed by [facility]. VITAMIN D 25 HYDROXY (ng/mL) 07/03/2007 47 20-57 Final Comment: TEST INFORMATION: VITAMIN D, 25-HYDROXY This assay accurately quantifies the sum of vitamin D3, 25-hydroxy and vitamin D2, 25-hydroxy. Deficiency: Less than 20 ng/mL Insufficiency: 20-29 ng/mL Optimum Level: 30-80 ng/mL Possible Toxicity: Greater than 80 ng/mL Performed by [facility], [address] [place] [id number] [email or web address], Sincere Jordan MD - Lab. Director documented in this encount er Plan of Treatment Not on filedocumented as of this encounter Visit Diagnoses + + | Diagnosis | + + | Fibromyalgia syndrome 729.1 - Primary Mylagia and myositis, unspecified | + + documented in this encounter"
--- OUTSIDE RECORDS SUMMARY | ~2019-10-17 | XMS | Encounter Summary ---
Demographics + + + | Address | [address] | | | [place] [address] | + + + | Home Phone [...] Providers + +------+ + | Care Invoice Control Clerk Name | Role | Phone | + +------+ + | Petrona Thapa | PCP | | | MD | | | + +------+ + Reason for Visit + + + | Reason | Comments | + + + | Phone Attempt | | + + + Encounter Details +--------+ + + + + | Date | Type | Department | Care Team | Description | +--------+ + + + + | 09/09/ | Telephone | [facility] | Alanis, | Phone Attempt | | 2019 | | MEDICINE [address] [place] [address] | MD Petrona | | | | | [facility] | [address] [place] [address] | | | | | [place] [address] | [place] [address] | | | | | [phone] | [phone] | | | | | | | [...] | | | | | [place] [address] | | | | | | [phone] | | | | | | | | +--------+---------+ + + + | 12/20/ | Office | Audiology | Elisabet Munson MS | | | 2019 | Visit | | [facility] [address] | | | | | | [address] [place] [place] | | | | | | [place] [address] | | | | | | [phone] | | | | | | | | +--------+---------+ + + + | 12/20/ | Office | Otolaryngology | Ulysses Genao MD | | | 2020 | Visit | | [address] [place] | | | | | | [address] [place], | | | | | | [place] [address] | | | | | | [phone] | | | | | | | | +--------+---------+ + + + documented as of this encounter Visit Diagnoses Not on filedocumented in this encounter"
--- OUTSIDE RECORDS SUMMARY | ~2019-10-17 | XMS | Encounter Summary ---
Demographics + + + | Address | [address] | | | [place] [address] | + + + | Home Phone [...] Team Providers + +------+ + | Care Beef Grinder Name | Role | Phone | [...] Rd | | | | | | [place], [place] | | | | | | [address] | | | +--------+ + + + [...] as of this encounter Progress Notes Interface, Aviation Safety Inspector In - 03/12/2007 2:28 AM PDT [id number] GEOVANNI Barnes [id number] Clinic Date: 02/23/2007 Clinic: Endocrinology Subjective: Belinda [...] performed next Thursday, March 01, 2007, in [place]. The right knee will be replaced in [...] patch 25 mcg for 72 hours. 2. Morton/acetaminophen 10 mg/325 mg, 1 every 6 hours [...] months. Beto Meeks M.D. PD / HS [id number] / [id number] / [id number] / [id number] cc: Pedrito Gutierrez M.D. [address] [place] [address] Chris Padgett M.D. Department of Surgery, [facility] Electronically signed by Beto Meeks 03-11-2007 04:41:13 PM nterface, Aviation Safety Inspector In - 03/12/2007 2:28 AM PDT [id number] GEOVANNI SKELTON J [id number] Clinic Date: 02/23/2007 Clinic: Endocrinology Belinda Meehan [...] her primary care provider, Dr. Gutierrez in [place]. She had a followup eye exam today, [...] replacement next Thursday (in 6 days) in [place], [place]. The right knee replacement tentatively will [...] as needed. Beto Meeks M.D. / SHARIF [id number] / [id number] / [id number] / [id number] cc: Pedrito Gutierrez M.D. [address] [place] [address] Joanna Arshad M.D. Electronically signed by Beto Meeks 03-11-2007 04:41:08 PM documented in this encounter Plan of Treatment Not on filedocumented as of this encounter Visit Diagnoses Not on filedocumented in this encounter"
--- OUTSIDE RECORDS SUMMARY | ~2019-10-17 | XMS | Encounter Summary ---
Demographics + + + | Address | [address] | | | [place] [address] | + + + | Home Phone [...] Team Providers + +------+ + | Care Java Swing Developer Name | Role | Phone | [...] as of this encounter Progress Notes Interface, Professor Of Pathology In - 01/12/2005 8:09 AM PDT [id number] GEOVANNI [place] Clinic Date: 03/07/2004 Clinic: [facility] TELEPHONE CONVERSATION Subjective: Belinda contacted the [...] cholelithiasis. She is welcome to come to [facility] for evaluation; however, given the distance of a 4-hour travel time, we found it would be more expeditious for her to be seen at her local hospital in [place]. The patient also agrees with this plan [...] additional followup as needed. Christie Kirkpatrick / [id number] / [id number] / [id number] / documented i n this encounter Plan of Treatment Not on filedocumented as of this encounter Visit Diagnoses Not on filedocumented in this encounter"
--- OUTSIDE RECORDS SUMMARY | ~2019-10-17 | XMS | Encounter Summary ---
Demographics + + + | Address | [address] | | | [place] [address] | + + + | Home Phone [...] Team Providers + +------+ + | Care Litigation Specialist Name | Role | Phone | + +------+ + | Pedrito Gutierrez MD | PCP | | + +------+ + Encounter Details +--------+ + + + + | Date | Type | Department | Care Team | Description | +--------+ + + + + | 01/14/ | Telephone | [facility] | Chris Padgett, | | | 2009 | | [place] [address] | [address] [facility] | | | | | Bethanie Mailcode: CH4S | [facility] | | | | | [facility] | [place], [place] | | | | | and Healing, | [address] | | | | | [facility] | [phone] | | | | | Floor [place], [place] | | | | | | [address] | | | | | | [phone] | | | +--------+ + + + [...]
--- OUTSIDE RECORDS SUMMARY | ~2019-10-17 | XMS | Encounter Summary ---
Demographics + + + | Address | [address] | | | [place] [address] | + + + | Home Phone [...] Team Providers + +------+ + | Care Hris Specialist Name | Role | Phone | [...] | Visit | [address] [address] | PLASTER TENDER | Disc Disease; | | | | [address] | | Fibromyalgia | | | | Physician's | | | | | | Pavilion, 4th Floor | | | | | | [place], [place] | | | | | | [address] | | | | | | [phone] | | | +--------+---------+ + + + [...] the LBP is gone. Dr. Ricky smith [place] was her surgeon. She think s a [...] 300 mg) by oral route once daily ebqvtcsoqh-bhwvburanesue-uerhzfqe (FIORICET) 50-325-40 mg Oral Tablet take 2 [...] | + + +--------+ + + | NV INJECT TRIGGER | Procedures | Routin | [...]
--- OUTSIDE RECORDS SUMMARY | ~2019-10-17 | XMS | Encounter Summary ---
Demographics + + + | Address | [address] | | | [place] [address] | + + + | Home Phone [...] Providers + +------+ + | Care Information Coder Name | Role | Phone | + [...] + | 09/21/ | Refill | [facility] | Alanis, | Medication Refill | | 2019 | | MEDICINE [address] | MD [place]ron[place] | | | | | [facility] | [address] [place] [address] | | | | | [place] [address] | [place] [address] | | | | | [phone] | [phone] | | | | | | | [...] | | | | | [place] [address] | | | | | | [phone] | | | | | | | | +--------+---------+ + + + | 12/20/ | Office | Audiology | Elisabet Munson MS | | | 2019 | Visit | | [facility] [address] | | | | | | [place] [address] [place] | | | | | | [place] [address] | | | | | | [phone] | | | | | | | | +--------+---------+ + + + | 12/20/ | Office | Otolaryngology | Ulysses Genao MD | | | 2020 | Visit | | [address] [facility] | | | | | | [address] [place], | | | | | | [place] [address] | | | | | | [phone] | | | | | | | | +--------+---------+ + + + documented as of this encounter Visit Diagnoses Not on filedocumented in this encounter"
--- OUTSIDE RECORDS SUMMARY | ~2019-10-17 | XMS | Encounter Summary ---
Demographics + + + | Address | [address] | | | [place] [address] | + + + | Home Phone [...] Team Providers + +------+ + | Care Thai Masseur Name | Role | Phone | + [...] | Transcriptions | + + | Interface, Rounding Machine Operator In - 06/05/2005 5:20 AM PST Date: | | 11/22/2003Attending Surgeon: Chris Padgett M.D.Health Insurance Adjuster(s): | | Ramon Valentine M.D.Preoperative Diagnosis:Morbid obesity.Postoperative [...] our proximal transected portion down and did qryfu-er-biih stapled jejunojejunostomy | | using a single [...] to this antecolic and antegastric andperformed a rhvl-eu-vdnb gastrojejunostomy | | after placing a posteriorinterrupted [...] Valentine | | Syed Padgett M.D.MOOKIE / [id number] / [id number] / [id number] / [id number]: 11/22/2003T: | | 11/22/2003 | |cm to [...] transected portion down and did a | |pewr-uj-delk stapled jejunojejunostomy using a single firing blue [...] antecolic and antegastric and | |performed a xtuu-hy-frzp gastrojejunostomy after placing a posterior | |interrupted [...] | | | |MOOKIE / SHARIF | |[id number] / [id number] / [id number] / [id number] | | | | | + + documented in this encounter Visit Diagnoses Not on filedocumented in this encounter"
--- OUTSIDE RECORDS SUMMARY | ~2019-10-17 | XMS | Encounter Summary ---
Demographics + + + | Address | [address] | | | [place] [address] | + + + | Home Phone [...] Providers + +------+ + | Care Construction Framer Name | Role | Phone | + [...] as of this encounter Progress Notes Interface, Internet Merchant In - 10/30/2005 2:06 AM PDT [id number] GEOVANNI Barnes [id number] Clinic Date: 10/23/2005 Clinic: Ms. Meehan comes in today for followup of her abdominal CT. The CT is normal. We will follow her for abdominal pain. I will see her again in 3 months. If she has exacerbation, she can come earlier. I also gave her 30 tablets of 5 mg oxycodone for the pain. Chris Padgett M.D. CD / [id number] / [id number] / [id number] / Electronically signed by Chris Padgett 10-29-2005 10:10:39 AM documented i n this encounter Plan of Treatment Not on filedocumented as of this encounter Visit Diagnoses Not on filedocumented in this encounter"
--- OUTSIDE RECORDS SUMMARY | ~2019-10-17 | XMS | Encounter Summary ---
Demographics + + + | Address | [address] | | | [place] [address] | + + + | Home Phone [...] Providers + +------+ + | Care Dental Mold Maker Name | Role | Phone | + +------+ + | Sulaiman Carrera MD | PCP | | + +------+ + Encounter Details +--------+ + + + + | Date | Type | Department | Care Team | Description | +--------+ + + + + | 06/12/ | Telephone | Digestive Health | Chris Padgett, | | | 2008 | | [place] [address] | [address] [facility] | | | | | Bethanie Mailcode: CH4S | [address] | | | | | [facility] | [place], [place] | | | | | and Healing, | [address] | | | | | [facility] 1, 6th | [phone] | | | | | Floor [place], [place] | | | | | | [address] | | | | | | [phone] | | | +--------+ + + + [...]
--- OUTSIDE RECORDS SUMMARY | ~2019-10-17 | XMS | Encounter Summary ---
Demographics + + + | Address | [address] | | | [place] [address] | + + + | Home Phone | | + + + | Preferred Language | Unknown | + + + | Marital Status | | + + + | Latter-Day Affiliation | 1001 | + + + | Race | Unknown | + + + | Ethnic Group | Unknown | + + + Author + + + | Author | [facility] | | | and Jairana | + + + | Organization | [facility] | | [...] Providers + +------+ + | Care Child Adolescent Care Name | Role | Phone | [...] + | 01/17/ | Refill | [facility] | Alanis, | Medication Refill | | 2018 | | MEDICINE [address] [place] [address] | MD Petrona | | | | | [facility] | [address] [place] [address] | | | | | [place] [address] | [place] [address] | | | | | [phone] | [phone] | | | | | | | [...] | | | | | [place] [address] | | | | | | [phone] | | | | | | | | +--------+---------+ + + + | 12/20/ | Office | Audiology | Elisabet Munson MS | | | 2019 | Visit | | [facility] [address] | | | | | | [place] [address] [place] | | | | | | [place] [address] | | | | | | [phone] | | | | | | | | +--------+---------+ + + + | 12/20/ | Office | Otolaryngology | Ulysses Genao MD | | | 2020 | Visit | | [address] [facility] | | | | | | [address] [place], | | | | | | [place] [address] | | | | | | [phone] | | | | | | | | +--------+---------+ + + + documented as of this encounter Visit Diagnoses Not on filedocumented in this encounter"
--- OUTSIDE RECORDS SUMMARY | ~2019-10-17 | XMS | Encounter Summary ---
Demographics + + + | Address | [address] | | | [place] [address] | + + + | Home Phone [...] Providers + +------+ + | Care Crop Insurance Claims Adjuster Name | Role | Phone | [...] | - Disregard | | | | [facility] | | | | | | [address] | | | | | | Mailcode: CH15P | | | | | | [facility] | | | | | | and Healing, | | | | | | Building | | | | | | Floor [place], [place] | | | | | | [address] | | | | | | [phone] | | | +--------+ + + + [...]
--- OUTSIDE RECORDS SUMMARY | ~2019-10-17 | XMS | Encounter Summary ---
Demographics + + + | Address | [address] | | | [place] [address] | + + + | Home Phone [...] Team Providers + +------+ + | Care Digital Engineer Name | Role | Phone | [...] | | | | | | | [place] for | | | | | | | Health and | | | | | | | Healing, | | | | | | | Building [address] | | | | | | | [place], [place] | | | | | | | [address] | | | | | | | Phone: | | | | | | | [phone] | | | | | | | Fax: | | | | | | | [phone] | +--------+--------+ + + + + Encounter Details +--------+---------+ + + + | Date | Type | Department | Care Team | Description | +--------+---------+ + + + | 01/10/ | Office | Digestive Health | Chris Padgett, | Status post | | 2009 | Visit | Center [address] | [address] [facility] | bariatric surgery | | | | Ave Mailcode: CH4S | [address] | (Primary Dx) | | | | [facility] | [place], [place] | | | | | and [place], | [address] | | | | | [facility] | [phone] | | | | | Floor [place], [place] | | | | | | [address] | | | | | | [phone] | | | +--------+---------+ + + + [...] and I asked her to see a bulking machine operator where she lives. Will obtain CBC and [...]
--- OUTSIDE RECORDS SUMMARY | ~2019-10-17 | XMS | Encounter Summary ---
Demographics + + + | Address | [address] | | | [place] [address] | + + + | Home Phone [...] Team Providers + +------+ + | Care Intern Retail Name | Role | Phone | + [...] + | Closed | | Endocrinology | | Non-[facility] | End General | | | | Diabetes & | | Epic Dept | [facility] [address] | | | | Metabolism | | | Pavilion | | | | | | | Loop | | | | | | | Physician's | | | | | | | Pavilion | | | | | | | Physician's | | | | | | | Pavilion | | | | | | | [place], [place] | | | | | | | [address] | | | | | | | Phone: | | | | | | | [phone] | | | | | | | Fax: | | | | | | | [phone] | +--------+--------+ + + + + Encounter Details +--------+---------+ + + + | Date | Type | Department | Care Team | Description | +--------+---------+ + + + | 01/05/ | Office | Digestive Health | Eliezer Ruano, | Follow-Up | | 2007 | Visit | Center [address] | [address] [facility] | Examination | | | | Avjennifer Mailcode: CH4S | [address] | Following Surgery | | | | [facility] | [place], [place] | (Primary Dx) | | | | and Healing, | [address] | | | | | Building | [phone] | | | | | Floor [place], [place] | | | | | | [address] | | | | | | [phone] | | | +--------+---------+ + + + [...] + + + | Blood Pressure | 112/72 | 01/06/2008 1:14 PM | | | | | PDT | | + + + + + | Pulse | 92 | 01/06/2008 1:14 PM | | | | | PDT | | + + + + + | Temperature | 37.1 C (98.7 F) | 01/06/2008 1:14 PM | | | | | PDT | | + + + + + | Respiratory Rate | 16 | 01/06/2008 1:14 PM | | | | | PDT | | + + + + + | Oxygen Saturation | - | - | | + + + + + | Inhaled Oxygen | - | - | | | Concentration | | | | + + + + + | Weight | 87.5 kg (192 lb 14.4 | 01/06/2008 1:14 PM | | | | oz) | PDT | | + + + + + | Height | - | - | | + + + + + | Body Mass Index | 28.49 | 12/27/2007 3:59 PM | | | | | PDT | | + + + + + documented in this encounter Progress Notes Eliezer Ruano - 01/06/2008 6:27 PM PDTI performed a history and physical examination o f the patient and discussed her management with the resident. I reviewed the resident francesco guevara and agree with the documented findings and plan of care. ELIEZER RUANO MD [facility] [address] [place] [address] And [facility], [address] [place] [address] Tejas Trevino - 01/05 1:54 PM PDTS: Pt is here one week postop lysis of adhesions. She is doing well. She i s still having some pain. PE: Midline incision closed with reshma. [place] removed. There was a small opening of the skin edge at the inferior limb of the incision. No erythema. A/P: S/p lysis of adhesions. She is progressing well. Reshma removed and steri-strips appl ied. FU in 6 months. docume nted in this encounter Plan of Treatment Not on filedocumented as of this encounter Visit Diagnoses + + | Diagnosis | + + | Follow-up examination following surgery - Primary Follow-up examination, following | | unspecified surgery | + + documented in this encounter"
--- OUTSIDE RECORDS SUMMARY | ~2019-10-17 | XMS | Encounter Summary ---
Demographics + + + | Address | [address] | | | [place] [address] | + + + | Home Phone [...] Providers + +------+ + | Care Director Systems Name | Role | Phone | + [...] as of this encounter Progress Notes Interface, Tool Keeper In - 09/13/2005 2:06 AM PST [id number] GEOVANNI Barnes Clinic Date: 12/12/2004 Clinic: Endocrinology PHONE CONTACT NOTE The patient called me today after having surgery last week here at [facility]. Her concern was the development of [...] cushion which I have ordered today through [employer] phone #[phone] and fax #[phone]. Today, the patient will monitor the decubiti closely and will be in touch with myself and her other physician depending on the progress. She also still has [address], which may be removed in one or two weeks when she returns to the Surgery Clinic at [facility]. Beto Meeks M.D. PD / HS [id number] / [id number] / [id number] / [id number] cc: Chris Padgett M.D. Electronically signed by Beto Meeks 09-12-2005 02:22:31 AM documented i n this encounter Plan of Treatment Not on filedocumented as of this encounter Visit Diagnoses Not on filedocumented in this encounter"
--- OUTSIDE RECORDS SUMMARY | ~2019-10-17 | XMS | Encounter Summary ---
Demographics + + + | Address | [address] | | | [place] [address] | + + + | Home Phone [...] Providers + +------+ + | Care Charge Machine Operator Name | Role | Phone [...] + | 10/05/ | Refill | [facility] | Alanis, | Medication Refill | | 2017 | | MEDICINE [address] [place] [address] | MD [place] | | | | | [facility] | [address] [place] [address] | | | | | [place] [address] | [place] [address] | | | | | [phone] | [phone] | | | | | | | [...] | | | | | [place] [address] | | | | | | [phone] | | | | | | | | +--------+---------+ + + + | 12/20/ | Office | Audiology | Elisabet Munson MS | | | 2019 | Visit | | [facility] [address] | | | | | | [place] [address] [place] | | | | | | [place] [address] | | | | | | [phone] | | | | | | | | +--------+---------+ + + + | 12/20/ | Office | Otolaryngology | Ulysses Genao MD | | | 2020 | Visit | | [address] [facility] | | | | | | [address] [place], | | | | | | [place] [address] | | | | | | [phone] | | | | | | | | +--------+---------+ + + + documented as of this encounter Visit Diagnoses Not on filedocumented in this encounter"
--- OUTSIDE RECORDS SUMMARY | ~2019-10-17 | XMS | Encounter Summary ---
Demographics + + + | Address | [address] | | | [place] [address] | + + + | Home Phone [...] Providers + +------+ + | Care Business Account Manager Name | Role | Phone [...] [address] | | | | | | [place], [place] | | | | | | [address] | | | | | | [phone] | | | +--------+ + + + [...] | + + + + + | [facility] DEPARTMENT OF | [address] | [place] [address] | | | PATHOLOGY | [address] | | | + + + + + | [facility] DEPARTMENT | [address] | [place] [address] | | | PATHOLOGY | [address] | | | + + + + + PROTHROMBIN TIME (03/10/2006 2:42 PM PDT) + + + + + + | Component | Value | Ref Range | Performed | Pathologist | | | | | At | Signature | + + + + + + | INR | 1.01Comment: | 0.90 - 1.20 INR | [facility] | | | | PT [...] | [facility] | [address] [place] [address] | [place] [address] | | | PATHOLOGY | [address] | | | + + + + + | [facility] | [address] [facility] | [place] [address] | | | PATHOLOGY | [address] [...] DEPARTMENT OF | [address] | [place] [address] | | | PATHOLOGY | [address] | | | + + + + + | [facility] DEPARTMENT OF | [address] | [place] [address] | | | PATHOLOGY | [address] [...] | + + + + + | [facility] DEPARTMENT | [address] [facility] | [place] [address] | | | PATHOLOGY | [address] | | | + + + + + | [facility] | [address] [facility] | [place] [address] | | | PATHOLOGY | [address] [...] + + + | [facility] | [address] | [place] [address] | | | LABORATORY | | | [...] | | | | | performed at [place] | | | | | | [facility]erman[facility] [...] + + + | [facility] | [address] | [place] [address] | | | LABORATORY | | | | + + + + + documented in this encounter Visit Diagnoses + + | Diagnosis | + + | Chronic abdominal pain Abdominal pain, unspecified site | + + | Iron deficiency Other disorders of iron metabolism | + + documented in this encounter"
--- OUTSIDE RECORDS SUMMARY | ~2019-10-17 | XMS | Encounter Summary ---
Demographics + + + | Address | [address] | | | [place] [address] | + + + | Home Phone [...] Providers + +------+ + | Care Supervisor [employer] Name | Role | Phone | [...] [place] | | | | | | [address] | | | | | | [phone] | | | +--------+ + + + [...] | | | | | [place] [address] | | | | | | [phone] | | | | | | | | +--------+---------+ + + + | 12/20/ | Office | Audiology | Elisabet Munson MS | | | 2019 | Visit | | [facility] [address] | | | | | [address] [place] | | | | | | [place] [address] | | | | | | [phone] | | | | | | | | +--------+---------+ + + + | 12/20/ | Office | Otolaryngology | Ulysses Genao MD | | | 2019 | Visit | | [address] | | | | | | [address] [place], | | | | | | [place] [address] | | | | | | [phone] | | | | | | | | +--------+---------+ + + + documented as of this encounter Visit Diagnoses Not on filedocumented in this encounter"
--- OUTSIDE RECORDS SUMMARY | ~2019-10-17 | XMS | Encounter Summary ---
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 female [facility] Comprehensive Pain Center Return Visit [...] drawing has be completed, which I reviewed. [facility] Brief Pain Inventory: Right Now: 9 [...] Result Impression NAME: BELINDA MEEHAN MR #: [id number] DATE OF EXAM: [id number] PHYSICIAN: EMMA ROJAS [...] DISK BULGE. Transcribed By: Armaan Mata : [id number] : 1442 Approved By: Radiologist: Physical Examination: [...] seeing Nathalia Arora PT here at the [facility] to address her back pain [...] vs Hernia. 6. PT here at the [facility] available 7. Repeat TESI as needed. DELFINA MOLINA [facility] Mail code CH 4P [facility] and [address] [address] JasenTy montilla - 9:12 AM PDTCMA History: PMH/PSH/SH/FH review [...]
--- OUTSIDE RECORDS SUMMARY | ~2019-10-17 | XMS | Encounter Summary ---
Demographics + + + | Address | [address] | | | [place] [address] | + + + | Home Phone [...] Team Providers + +------+ + | Care Favor Maker Name | Role | Phone | [...] Description | +--------+--------+ + + + | 03/14/ | Refill | [facility] | Alanis, | Medication Refill | | 2018 | | MEDICINE [address] [place] [address] | MD [place] | | | | | [facility] | [address] [place] [address] | | | | | [place] [address] | [place] [address] | | | | | [phone] | [phone] | | | | | | | [...] | | | | | [place] [address] | | | | | | [phone] | | | | | | | | +--------+---------+ + + + | 12/20/ | Office | Audiology | Elisabet Munson MS | | | 2019 | Visit | | [facility] [address] | | | | | | [place] [address] [place] | | | | | | [place] [address] | | | | | | [phone] | | | | | | | | +--------+---------+ + + + | 12/20/ | Office | Otolaryngology | Ulysses Genao MD | | | 2020 | Visit | | [address] [facility] | | | | | | [address] [place], | | | | | | [place] [address] | | | | | | [phone] | | | | | | | | +--------+---------+ + + + documented as of this encounter Visit Diagnoses Not on filedocumented in this encounter"
--- OUTSIDE RECORDS SUMMARY | ~2019-10-17 | XMS | Encounter Summary ---
Demographics + + + | Address | [address] | | | [place] [address] | + + + | Home Phone [...] Team Providers + +------+ + | Care Stenographer Print Shop Name | Role | Phone | [...] | | CONSULT TO | Rd | [address] | | | | | NEUROLOGY | [place], [place] | for Health | | | | | | [address] | and Healing, | | | | | | Phone: | Building 1, | | | | | | [phone] | [facility] Floor | | | | | | | [place], [place] | | | | | | | [address] | | | | | | | Phone: | | | | | | | [phone] | | | | | | | Fax: | | | | | | | [phone] | +--------+--------+ + + + + Reason [...] | | | [facility] | [place], [place] | Weak; | | | | [address] | [address] | Migraine Headache | | | | [address] | [phone] | | | | | Physician's Pavilion | | | | | | Physician's | | | | | | Pavilion [place], | | | | | | [place] [address] | | | | | | [phone] | | | +--------+---------+ + + + [...] (ciprofloxacin) Tramadol Morphine IM ( only in [facility]) made gut pain worse 08/27/06: [...] oral route once daily, Disp: , Rfl: gizagfoyvd-kdjaogqmvuqzw-myraouft (FIORICET) 50-325-40 mg Oral Tablet, take 2 [...] LE edema Results for BELINDA MEEHAN Molly (ID#[id number]) as of 03/01/2008 9:22:28 PM Ref. Range [...] K/cu mm 220 Results for BELINDA MEEHAN (ID#[id number]) as of 03/01/2008 9:22:28 PM Ref. Range [...] continue to discuss with her options at [facility] with, hopefully, coordin ation of services. RTC [...] + + + | [facility] | [facility] | [place] [address] | | | PATHOLOGY | [address] | | | + + + + + | [place] DEPARTMENT OF | [address] | [place] [address] | | | PATHOLOGY | [address] [...] Performed At | + + + | [id number] Estimated GFR > 60 mL/min/1.73 sq m if non- | [facility] | | Monegas[place] [id number] Estimated GFR > 60 mL/min/1.73 sq m if | DEPARTMENT OF | | [place]gas[place] GFR is estimated using the MDRD equation [...] + + + | [facility] | [address] [facility] | [place] [address] | | | PATHOLOGY | [address] | | | + + + + + | [facility] | [address] [facility] | [place] [address] | | | PATHOLOGY | [address] [...] change effective | | | 04/05/07 [facility] ([facility] [address] [facility]) | | | [facility] [address] [place] [address] [facility] | | | [place] [address] | | + + + + + + + + | Performing | Address | City/State/Zipcode | Phone Number | | Organization | | | | + + + + + | [facility] | [address] | [place] [address] | | | LABORATORY | | | [...] change effective | | | 04/05/07 [facility] ([facility] [facility]) | | | [facility] [place] [address] [place] [address] [facility] | | | [place] [address] | | + + + + + + + + | Performing | Address | City/State/Zipcode | Phone Number | | Organization | | | | + + + + + | [facility] | [address] | [place] [address] | | | LABORATORY | | | [...]
--- OUTSIDE RECORDS SUMMARY | ~2019-10-17 | XMS | Encounter Summary ---
Demographics + + + | Address | [address] | | | [place] [address] | + + + | Home Phone [...] Team Providers + +------+ + | Care Stage Electrician Helper Name | Role | Phone | [...] | | 2006 | | Faculty at [employer] | [address] | | | | | for [facility] and | [place], [place] | | | | | Healing [address] | [address] | | | | | Ave Mailcode: | [phone] | | | | | [facility] | | | | | | Health and Healing, | | | | | | [facility] | | | | | | [place], [place] | | | | | | [address] | | | | | | [phone] | | | +--------+ + + + [...]
--- OUTSIDE RECORDS SUMMARY | ~2019-10-17 | XMS | Encounter Summary ---
Demographics + + + | Address | [address] | | | [place] [address] | + + + | Home Phone [...] Team Providers + +------+ + | Care Beekeeper Name | Role | Phone | + +------+ + | Sulaiman Carrera MD | PCP | | + +------+ + Encounter Details +--------+ + + + + | Date | Type | Department | Care Team | Description | +--------+ + + + + | 01/02/ | Ancillary | Registration 3181 | Beto Meeks MD | | | 2004 | Registratio | [facility] | [address] | | | | n | [address] Mailcode: [id number] | [place], [place] | | | | | [place], [place] | [address] | | | | | [address] | [phone] | | | | | [phone] | | | +--------+ + + + [...] DEPARTMENT OF | [address] | [place] [address] | | | PATHOLOGY | [address] | | | + + + + + | [facility] DEPARTMENT OF | [address] | [place] [address] | | | PATHOLOGY | [address] [...] + + + + + | [facility] DEPARTMENT OF | [address] [facility] | [place] [address] | | | PATHOLOGY | [address] | | | + + + + + | [place] DEPARTMENT OF | [address] [facility] | [place] [address] | | | PATHOLOGY | [address] [...] | + + + + + | [facility] | [address] | [place] [address] | | | LABORATORY | | | | + + + + + documented in this encounter Visit Diagnoses Not on filedocumented in this encounter"
--- OUTSIDE RECORDS SUMMARY | ~2019-10-17 | XMS | Encounter Summary ---
Demographics + + + | Address | [address] | | | [place] [address] | + + + | Home Phone [...] Team Providers + +------+ + | Care Sugar Refiner Name | Role | Phone | + [...] + + | 08/20/ | Telephone | [facility] INTERNAL | Alanis, | Other | | 2018 | | MEDICINE [address] [place] [address] | MD Petrona | | | | | [facility] | [address] [place] [address] | | | | | [place] [address] | [place] [address] | | | | | [phone] | [phone] | | | | | | | [...] Petrona | | | | | | [facility] [address] [place] | | | | | | [place] [address] | | | | | | [phone] | | | | | | | | +--------+---------+ + + + | 12/20/ | Office | Audiology | Elisabet Munson MS | | | 2019 | Visit | | [facility] [address] | | | | | | [place] [address] [address] | | | | | | [place] [address] | | | | | | [phone] | | | | | | | | +--------+---------+ + + + | 12/20/ | Office | Otolaryngology | Ulysses Genao MD | | | 2019 | Visit | | [address] [facility] | | | | | | [address] [place], | | | | | | [place] [address] | | | | | | [phone] | | | | | | | | +--------+---------+ + + + documented as of this encounter Visit Diagnoses Not on filedocumented in this encounter"
--- OUTSIDE RECORDS SUMMARY | ~2019-10-17 | XMS | Encounter Summary ---
Demographics + + + | Address | [address] | | | [place] [address] | + + + | Home Phone [...] Providers + +------+ + | Care Candy Starch Mold Printer Name | Role | Phone | + +------+ + | Pedrtio Gutierrez MD | PCP | | + [...] + + | 03/19/ | Telephone | [facility] Division of | Carlos Arreola, | Erroneous Encounter | | 2005 | | Gastroenterology/Hep | [address] | - Disregard (ERROR) | | | | atology [address] | [address] | | | | | [address] | [place] [address] | | | | | Mailcode: [id number] | [phone] | | | | | [facility] | | | | | | [address] | | | | | | [place], [place] | | | | | | [address] | | | | | | [phone] | | | +--------+ + + + [...]
--- OUTSIDE RECORDS SUMMARY | ~2019-10-17 | XMS | Encounter Summary ---
Demographics + + + | Address | [address] | | | [place] [address] | + + + | Home Phone [...] Providers + +------+ + | Care Ground Systems Engineer Name | Role | Phone | [...] + + | 09/02/ | Telephone | [facility] | Alanis, | Paperwork | | 2018 | | MEDICINE [address] [place] [address] | MD Petrona | | | | | [facility] | [address] [place] [address] | | | | | [place] [address] | [place] [address] | | | | | [phone] | [phone] | | | | | | | [...] | 2019 | Visit | | MD Pertona | | | | | | [address] [place] | | | | | | [place] [address] | | | | | | [phone] | | | | | | | | +--------+---------+ + + + | 12/20/ | Office | Audiology | Elisabet Munson MS | | | 2019 | Visit | | [facility] [address] | | | | | | [place] [address] [place] | | | | | | [place] [address] | | | | | | [phone] | | | | | | | | +--------+---------+ + + + | 12/20/ | Office | Otolaryngology | Ulysses Genao MD | | | 2020 | Visit | | [address] [facility] | | | | | | [address] [place], | | | | | | [place] [address] | | | | | | [phone] | | | | | | | | +--------+---------+ + + + documented as of this encounter Visit Diagnoses Not on filedocumented in this encounter"
--- OUTSIDE RECORDS SUMMARY | ~2019-10-17 | XMS | Encounter Summary ---
Demographics + + + | Address | [address] | | | [place] [address] | + + + | Home Phone [...] Team Providers + +------+ + | Care Tank Officer Name | Role | Phone | [...] Abdominal pain | | 2005 | | [place] [address] | | | | | | [address] | | | | | | Mailcode: [id number] | | | | | | Physician's [facility] | | | | | | [place], [place] | | | | | | [address] | | | | | | [phone] | | | +--------+ + + + [...]
--- OUTSIDE RECORDS SUMMARY | ~2019-10-17 | XMS | Encounter Summary ---
Demographics + + + | Address | [address] | | | [place] [address] | + + + | Home Phone [...] Providers + +------+ + | Care Bottom Saw Operator Name | Role | Phone [...] | | | | [address] | [place] [address] | | | | | | [place], | Phone: | | | | | | [place] | [phone] | | | | | | [address] | Fax: | | | | | | Phone: | [phone] | | | | | | [phone] | | | | | | | Fax: | | | | | | | [phone] | | +--------+ + + + + + Encounter Details +--------+---------+ + + + | Date | Type | Department | Care Team | Description | +--------+---------+ + + + | 12/30/ | Office | [facility] | Ulysses Genao MD | Benign paroxysmal | | 2018 | Visit | OTOLARYNGOLOGY [address] | [address] | positional vertigo, | | | | [address] | [address] [place], | unspecified | | | | [place], [place] | [place] [address] | laterality (Primary | | | | [address] | [phone] | Dx); Dysfunction of | | | | [phone] | | left eustachian tube | +--------+---------+ [...] negative nichole ft to it. Her speech legal receptionist threshold is 20 dB in the [...] | | | | | [place] [address] | | | | | | [phone] | | | | | | | | +--------+---------+ + + + | 12/20/ | Office | Audiology | Elisabet Munson MS | | | 2019 | Visit | | [facility] [address] | | | | | [address] [place] | | | | | | [place] [address] | | | | | | [phone] | | | | | | | | +--------+---------+ + + + | 12/20/ | Office | Otolaryngology | Ulysses Genao MD | | | 2019 | Visit | | [address] | | | | | | [address] [place], | | | | | | [place] [address] | | | | | | [phone] | | | | | | | [...]
--- OUTSIDE RECORDS SUMMARY | ~2019-10-17 | XMS | Encounter Summary ---
Demographics + + + | Address | [address] | | | [place] [address] | + + + | Home Phone [...] Team Providers + +------+ + | Care Kelly Machine Operator Name | Role | Phone [...] | | | | | Procedures | [place], [place] | [address] [facility] | | | | | CONSULT TO | [address] | [address] | | | | | SURGERY - | | Rd [place], | | | | | GENERAL | | [place] | | | | | | | [address] | | | | | | | Phone: | | | | | | | [phone] | | | | | | | Fax: | | | | | | | [phone] | +--------+--------+ + + + + Encounter Details +--------+ + + + + | Date | Type | Department | Care Team | Description | +--------+ + + + + | 08/31/ | Tax Assistant | [facility]ive Health | Nuris Cardenas ANP | Hemorrhoid (Primary | | 2008 | | Center [address] | | Dx) | | | | [address] | | | | | | Mailcode: [id number] | | | | | | [facility] | | | | | | [place], [place] | | | | | | [address] | | | | | | [phone] | | | +--------+ + + + [...]
--- OUTSIDE RECORDS SUMMARY | ~2019-10-17 | XMS | Encounter Summary ---
Demographics + + + | Address | [address] | | | [place] [address] | + + + | Home Phone [...] Providers + +------+ + | Care Beef Cattle Grazier Name | Role | Phone | + [...] Required | | paroxysmal | [address] | [facility] | | | | | positional | [address] | [address] | | | | | vertigo, | [place] | AVE | | | | | left | [place], [place] | [place], [place] | | | | | Vertigo of | [address] | [address] | | | | | central | Phone: | Phone: | | | | | origin, left | [phone] | [phone] | | | | | | Fax: | Fax: | | | | | | [phone] | [phone] | +--------+ + + + + + + + | Scheduling Instructions | + + | Patient is going to be having an Tayler maneuver done and at [facility]. | + + Encounter Details +--------+ + + + + | Date | Type | Department | Care Team | Description | +--------+ + + + + | 12/11/ | Orders Only | [facility] | Ulysses Genao MD | Benign paroxysmal | | 2015 | | OTOLARYNGOLOGY [address] | [address] | positional vertigo, | | | | [address] | [address] [place], | left (Primary Dx); | | | | [place], [place] | [place] [address] | Vertigo of central | | | | [address] | [phone] | origin, left | | | | [phone] | | | +--------+ + + + [...] | | | | | [place] [address] | | | | | | [phone] | | | | | | | | +--------+---------+ + + + | 12/20/ | Office | Audiology | Elisabet Munson MS | | | 2019 | Visit | | [facility] [address] | | | | | [address] [place] | | | | | | [place] [address] | | | | | | [phone] | | | | | | | | +--------+---------+ + + + | 12/20/ | Office | Otolaryngology | Ulysses Genao MD | | | 2020 | Visit | | [address] | | | | | | [address] [place], | | | | | | [place] [address] | | | | | | [phone] | | | | | | | [...]
--- OUTSIDE RECORDS SUMMARY | ~2019-10-17 | XMS | Encounter Summary ---
Demographics + + + | Address | [address] | | | [place] [address] | + + + | Home Phone [...] Providers + +------+ + | Care Activity Assistant Name | Role | Phone | [...] as of this encounter Progress Notes Interface, Historical Records Administrator In - 01/03/2006 3:02 AM PDTCLINIC DATE: 11/01/2002 NEUROMUSCULAR CLINIC PRIMARY CARE PROVIDER: Pedrito Gutierrez M.D. OTHER PHYSICIAN: Issac Meeks M.D., [facility] Endocrinology. PROBLEM LIST 1. Fibromyalgia and chronic [...] fatigue. She reportedly has begun walking with Van crutches much of the time due to [...] Irving Pete M.D. Neurology/Neuromuscular Fellow TBD / [id number] / [id number] / [id number] / [id number] C: 11/10/2002 BRAD cc: Issac Meeks M.D. [facility] Endocrinology Pedrito Gutierrez M.D. [address] [place], [place] [address]Doruhpsssitted signed by Interface, Historical Records Administrator In at 01/03/2006 3:0 2 AM PDTdocumented in this encounter Plan of Treatment Not on filedocumented as of this encounter Visit Diagnoses Not on filedocumented in this encounter
--- OUTSIDE RECORDS SUMMARY | ~2019-10-17 | XMS | Encounter Summary ---
Demographics + + + | Address | [address] | | | [place] [address] | + + + | Home Phone [...] Team Providers + +------+ + | Care Planning Analyst Name | Role | Phone | [...] + + | 02/02/ | Telephone | [facility] INTER[facility] | Alanis, | Pain | | 2019 | | MEDICINE [address] [place] [address] | MD Petrona | | | | | [place] | [address] [place] [address] | | | | | [place] [address] | [place] [address] | | | | | [phone] | [phone] | | | | | | | [...] | | [facility] [address] [place] | | | | | | [place] [address] | | | | | | [phone] | | | | | | | | +--------+---------+ + + + | 12/20/ | Office | Audiology | Elisabet Munson MS | | | 2019 | Visit | | [facility] [address] | | | | | | [place] [address] [address] | | | | | | [place] [address] | | | | | | [phone] | | | | | | | | +--------+---------+ + + + | 12/20/ | Office | Otolaryngology | Ulysses Genao MD | | | 2019 | Visit | | [address] [facility] | | | | | | [address] [place], | | | | | | [place] [address] | | | | | | [phone] | | | | | | | | +--------+---------+ + + + documented as of this encounter Visit Diagnoses Not on filedocumented in this encounter"
--- OUTSIDE RECORDS SUMMARY | ~2019-10-17 | XMS | Encounter Summary ---
Demographics + + + | Address | [address] | | | [place] [address] | + + + | Home Phone [...] Team Providers + +------+ + | Care Membership Sales Advisor Name | Role | Phone | + [...] | | | | Mailcode: [id number] | [place], [place] | | | | | Outpatient Clinic | [address] | | | | | [facility], | [phone] | | | | | [place] [address] | | | | | | [phone] | | | +--------+ + + + [...] | | | | | 2,SERUM | [facility] | | | | | | Laboratories. | | | | + + + + + + + + | Specimen | + + | | + + + + + + + | Performing | Address | City/State/Zipcode | Phone Number | | Organization | | | | + + + + + | [facility] | [address] | [place] [address] | | | LABORATORY | | | | + + + + + documented in this encounter Visit Diagnoses Not on filedocumented in this encounter"
--- OUTSIDE RECORDS SUMMARY | ~2019-10-17 | XMS | Encounter Summary ---
Demographics + + + | Address | [address] | | | [place] [address] | + + + | Home Phone [...] Providers + +------+ + | Care Brim Raiser Name | Role | Phone | + +------+ + | Pedrito Gutierrez MD | PCP | | + +------+ + Encounter Details +--------+ + + + + | Date | Type | Department | Care Team | Description | +--------+ + + + + | 05/22/ | Telephone | Digestive Health | Carlos Arreola, | | | 2005 | | Center at [facility] [address] | [address] | | | | | [address] | [facility] | | | | | Mailcode: Center | [place] [address] | | | | | for Health and | [phone] | | | | | Healing, Building [address] | | | | | | [place], [place] | | | | | | [address] | | | | | | [phone] | | | +--------+ + + + [...]
--- OUTSIDE RECORDS SUMMARY | ~2019-10-17 | XMS | Encounter Summary ---
Demographics + + + | Address | [address] | | | [place] [address] | + + + | Home Phone [...] Team Providers + +------+ + | Care Heeler Name | Role | Phone | + +------+ + | Sulaiman Carrera MD | PCP | | + +------+ + Encounter Details +--------+ + + + + | Date | Type | Department | Care Team | Description | +--------+ + + + + | 07/25/ | Hospital | Registration [address] | Chris Padgett, | | | 2006 | Activity | [address] | [address] | | | | | [address] Mailcode: [id number] | [address] | | | | | [place], [place] | [place], [place] | | | | | [address] | [address] | | | | | [phone] | [phone] | | | | | | | [...]
--- OUTSIDE RECORDS SUMMARY | ~2019-10-17 | XMS | Encounter Summary ---
Demographics + + + | Address | [address] | | | [place] [address] | + + + | Home Phone [...] Providers + +------+ + | Care Plate Embosser Name | Role | Phone | + [...] + + | 02/22/ | Telephone | [facility] INTER[facility] | Alanis, | Medication Question | | 2018 | | MEDICINE [address] [place] [address] | MD Petrona | | | | | [facility] | [address] [place] [address] | | | | | [place] [address] | [place] [address] | | | | | [phone] | [phone] | | | | | | | [...] | | | | | [place] [address] | | | | | | [phone] | | | | | | | | +--------+---------+ + + + | 12/20/ | Office | Audiology | Elisabet Munson MS | | | 2019 | Visit | | [facility] [address] | | | | | | [address] [place] | | | | | | [place] [address] | | | | | | [phone] | | | | | | | | +--------+---------+ + + + | 12/20/ | Office | Otolaryngology | Ulysses Genao MD | | | 2020 | Visit | | [address] [facility] | | | | | | [address] [place], | | | | | | [place] [address] | | | | | | [phone] | | | | | | | | +--------+---------+ + + + documented as of this encounter Visit Diagnoses Not on filedocumented in this encounter"
--- OUTSIDE RECORDS SUMMARY | ~2019-10-17 | XMS | Encounter Summary ---
Demographics + + + | Address | [address] | | | [place] [address] | + + + | Home Phone [...] Team Providers + +------+ + | Care Nurse Extern Name | Role | Phone | + [...] | Registratio | [facility] | [address] | | | | n | [address] Mailcode: [id number] | [place], [place] | | | | | [place], [place] | [address] | | | | | [address] | [phone] | | | | | [phone] | | | +--------+ + + + [...] | + + + + + | [facility] | [address] | [place] [address] | | | LABORATORY | | | [...] [address] | | | | | | [facility] [address] Andrew, [facility], [place] | | | | | | [address] | | | | | | [phone] | | | | | | Sincere [...] [facility] | [address] | [place], [place] | | | [facility] | | [address] | | + + + + + documented in this encounter Visit Diagnoses Not on filedocumented in this encounter"
--- OUTSIDE RECORDS SUMMARY | ~2019-10-17 | XMS | Encounter Summary ---
Demographics + + + | Address | [address] | | | [place] [address] | + + + | Home Phone [...] Team Providers + +------+ + | Care Adult Specialist Name | Role | Phone | [...] | Osteopenia | MD Beto | Density [facility] | | | | | Procedures | [address] | [address] | | | | | CONSULT TO | Ave | [address] | | | | | BONE | [place], [place] | Rd Mailcode: | | | | | DENSITOMETRY | [address] | [address] | | | | | | Phone: | [address] | | | | | | [phone] | [place], [place] | | | | | | Fax: | [address] | | | | | | [phone] | Phone: | | | | | | | [phone] | | | | | | | Fax: | | | | | | | [phone] | +--------+--------+ + + + + Encounter Details +--------+ + + + + | Date | Type | Department | Care Team | Description | +--------+ + + + + | 07/24/ | Hospital | Endocrinology, | Sjh, Bmd Dexa | | | 2008 | Encounter | Diabetes and | [address] | | | | | Clinical Nutrition | [facility], | | | | | [address] | [place] [address] | | | | | [facility] Mailcode: | | | | | | [address] | | | | | | [address] [place], [place] | | | | | | [address] | | | | | | [phone] | | | +--------+ + + + [...] from the Results section by P Byron [[id number]] on | | | 04/17/2009 at 5:16 PM (File: [id number]) | | + + + BONE DENSITOMETRY [...]
--- OUTSIDE RECORDS SUMMARY | ~2019-10-17 | XMS | Encounter Summary ---
Demographics + + + | Address | [address] | | | [place] [address] | + + + | Home Phone [...] Providers + +------+ + | Care Horse Rider Name | Role | Phone | + +------+ + | Petrona Thapa | PCP | | | MD | | | + +------+ + Encounter Details +--------+ + + + + | Date | Type | Department | Care Team | Description | +--------+ + + + + | 09/22/ | Hospital | [facility] | Alanis, | Impingement syndrome | | 2018 | Encounter | [facility] [address] [facility] | MD Petrona | of right shoulder | | | | [address] [place] | [address] [place] | | | | | [place], [place] | [place] [address] | | | | | [address] | [phone] | | | | | [phone] | | | +--------+ + + + [...] | | | | | [place] [address] | | | | | | [phone] | | | | | | | | +--------+---------+ + + + | 12/20/ | Office | Audiology | Elisabet Munson MS | | | 2019 | Visit | | [facility] [address] | | | | | [address] [place] | | | | | | [place] [address] | | | | | | [phone] | | | | | | | | +--------+---------+ + + + | 12/20/ | Office | Otolaryngology | Ulysses Genao MD | | | 2019 | Visit | | [address] | | | | | | [address] [place], | | | | | | [place] [address] | | | | | | [phone] | | | | | | | [...] + | Ollie Neff Results In - 09/22/2017 10:40 AM PDT [...]
--- OUTSIDE RECORDS SUMMARY | ~2019-10-17 | XMS | Encounter Summary ---
Demographics + + + | Address | [address] | | | [place] [address] | + + + | Home Phone [...] Team Providers + +------+ + | Care Linux Engineer Name | Role | Phone | [...] | | | [facility] | [place], [place] | | | | | Pav[address] | [address] | | | | | [address] | [phone] | | | | | Physician's | | | | | | Pavilion, 1st floor | | | | | | [place], [place] | | | | | | [address] | | | | | | [phone] | | | +--------+--------+ + + + [...]
--- OUTSIDE RECORDS SUMMARY | ~2019-10-17 | XMS | Encounter Summary ---
Demographics + + + | Address | [address] | | | [place] [address] | + + + | Home Phone [...] Team Providers + +------+ + | Care Web Interface Developer Name | Role | Phone | [...] Pavilion | | | | | | [place], [place] | | | | | | [address] | | | | | | [phone] | | | +--------+ + + + [...]
--- OUTSIDE RECORDS SUMMARY | ~2019-10-17 | XMS | Encounter Summary ---
Demographics + + + | Address | [address] | | | [place] [address] | + + + | Home Phone [...] Team Providers + +------+ + | Care Cobbler Apprentice Name | Role | Phone | + +------+ + PCP | Unavailable | + +------+ + Encounter Details +--------+ + + + + | Date | Type | Department | Care Team | Description | +--------+ + + + + | 01/02/ | Telephone | Digestive Health | Kenisha Melton, | | | 2005 | | [address] | [facility] [address] | | | | | [address] | [address] | | | | | Mailcode: [id number] | [place], [place] | | | | | Physician[facility] Pavilion | [address] | | | | | [place], [place] | [phone] | | | | | [address] | | | | | | [phone] | | | +--------+ + + + [...]
--- OUTSIDE RECORDS SUMMARY | ~2019-10-17 | XMS | Encounter Summary ---
Demographics + + + | Address | [address] | | | [place] [address] | + + + | Home Phone [...] Team Providers + +------+ + | Care Urban And Regional Planner Name | Role | Phone | [...] + + | 08/10/ | Telephone | [facility] | Rosi Antonio, | Fall Ground Level | | 2013 | | Pain Center at | ANP | | | | | [facility] | | | | | | [address] | | | | | | Mailcode: [id number] | | | | | | [facility] | | | | | | and Healing, | | | | | | Building | | | | | | Floor [place], [place] | | | | | | [address] | | | | | | [phone] | | | +--------+ + + + [...]
--- OUTSIDE RECORDS SUMMARY | ~2019-10-17 | XMS | Encounter Summary ---
Demographics + + + | Address | [address] | | | [place] [address] | + + + | Home Phone [...] + + | 03/19/ | Telephone | [facility] | Carlos Arreola, | Erroneous Encounter | | 2005 | | Gastroenterology/Hep | [address] | - Disregard (ERROR) | | | | atology [address] | [address] | | | | | [address] | [place] [address] | | | | | Mailcode: [id number] | [phone] | | | | | [facility] | | | | | | [address] | | | | | | [place], [place] | | | | | | [address] | | | | | | [phone] | | | +--------+ + + + [...]
--- OUTSIDE RECORDS SUMMARY | ~2019-10-17 | XMS | Encounter Summary ---
Demographics + + + | Address | [address] | | | [place] [address] | + + + | Home Phone [...] Team Providers + +------+ + | Care Log Haul Chain Feeder Name | Role | Phone | [...] + | 06/30/ | Refill | [facility] | Alanis, | Medication Refill | | 2017 | | MEDICINE [address] [place] [address] | MD Petrona | | | | | [facility] | [address] [place] [address] | | | | | [place] [address] | [place] [address] | | | | | [phone] | [phone] | | | | | | | [...] | | | | | [place] [address] | | | | | | [phone] | | | | | | | | +--------+---------+ + + + | 12/20/ | Office | Audiology | Elisabet Munson MS | | | 2019 | Visit | | [facility] [address] | | | | | | [place] [address] [place] | | | | | | [place] [address] | | | | | | [phone] | | | | | | | | +--------+---------+ + + + | 12/20/ | Office | Otolaryngology | Ulysses Genao MD | | | 2019 | Visit | | [address] [facility] | | | | | | [address] [place], | | | | | | [place] [address] | | | | | | [phone] | | | | | | | | +--------+---------+ + + + documented as of this encounter Visit Diagnoses + + | Diagnosis | + + | Bronchitis - Primary Bronchitis, not specified as acute or chronic | + + documented in this encounter"
--- OUTSIDE RECORDS SUMMARY | ~2019-10-17 | XMS | Encounter Summary ---
Demographics + + + | Address | [address] | | | [place] [address] | + + + | Home Phone [...] Providers + +------+ + | Care Electric Tripper Machine Operator Name | Role | Phone [...] | | | [facility] | [place], [place] | and counseling; | | | | [address] | [address] | [place] | | | | [address] | [phone] | | | | | [facility] | | | | | | Physician's | | | | | | Pavilion [place], | | | | | | [place] [address] | | | | | | [phone] | | | +--------+ + + + [...]
--- OUTSIDE RECORDS SUMMARY | ~2019-10-17 | XMS | Encounter Summary ---
Demographics + + + | Address | [address] | | | [place] [address] | + + + | Home Phone [...] Team Providers + +------+ + | Care Buckle Stringer Name | Role | Phone | [...] + + | 04/25/ | Telephone | [facility] | Alanis, | Paperwork; Pre-Op | | 2018 | | MEDICINE [address] [place] [address] | MD Petrona | | | | | [facility] | [address] [place] [address] | | | | | [place] [address] | [place] [address] | | | | | [phone] | [phone] | | | | | | | [...] | | | | | [place] [address] | | | | | | [phone] | | | | | | | | +--------+---------+ + + + | 12/20/ | Office | Audiology | Elisabet Munson MS | | | 2019 | Visit | | [facility] [address] | | | | | | [place] [address] [place] | | | | | | [place] [address] | | | | | | [phone] | | | | | | | | +--------+---------+ + + + | 12/20/ | Office | Otolaryngology | Ulysses Genao MD | | | 2020 | Visit | | [address] [facility] | | | | | | [address] [place], | | | | | | [place] [address] | | | | | | [phone] | | | | | | | | +--------+---------+ + + + documented as of this encounter Visit Diagnoses Not on filedocumented in this encounter"
--- OUTSIDE RECORDS SUMMARY | ~2019-10-17 | XMS | Encounter Summary ---
Demographics + + + | Address | [address] | | | [place] [address] | + + + | Home Phone [...] Team Providers + +------+ + | Care Brick Handler Name | Role | Phone | + +------+ + | Petrona Thapa | PCP | | | MD | | | + +------+ + Reason for Visit + + + | Reason | Comments | + + + | Immunizations | | + + + Encounter Details +--------+ + + + + | Date | Type | Department | Care Team | Description | +--------+ + + + + | 07/20/ | Telephone | [facility] | Alanis, | Immunizations | | 2019 | | MEDICINE [address] [place] [address] | MD Petrona | | | | | [facility] | [address] [place] [address] | | | | | [place] [address] | [place] [address] | | | | | [phone] | [phone] | | | | | | | [...] | | | | | [place] [address] | | | | | | [phone] | | | | | | | | +--------+---------+ + + + | 12/20/ | Office | Audiology | Elisabet Munson MS | | | 2019 | Visit | | [facility] [address] | | | | | | [place] | | | | | | [place] [id number] | | | | | | [phone] | | | | | | | | +--------+---------+ + + + | 12/20/ | Office | Otolaryngology | Ulysses Genao MD | | | 2019 | Visit | | [address] [place] | | | | | | [address] [place], | | | | | | [place] [id number] | | | | | | [phone] | | | | | | | | +--------+---------+ + + + + +---------+--------+ + + | Name | Type | Priori | Associated Diagnoses | Order Schedule | | | | ty | | | + +---------+--------+ + + | DEXA Bone Density wo | Imaging | Routin | Menopause Other | Expected: | | Vert Fx Assmt | | e | osteoporosis without | 07/23/2018, Expires: | | | | | current | 07/23/2019 | | | | | pathological | | | | | | fracture | | + +---------+--------+ + + documented as of this encounter Visit Diagnoses + + | Diagnosis | + + | Menopause - Primary Symptomatic menopausal or female climacteric states | + + | Other osteoporosis without current pathological fracture | + + documented in this encounter"
--- OUTSIDE RECORDS SUMMARY | ~2019-10-17 | XMS | Encounter Summary ---
Demographics + + + | Address | [address] | | | [place] [address] | + + + | Home Phone [...] Team Providers + +------+ + | Care Disposal Plant Operator Name | Role | Phone [...] PHYSIATRY [address] | MD [address] | | | | | [address] | [place] | | | | | [place], [place] | [address] | | | | | [address] | | | | | | [phone] | | | +--------+ + + + [...] | | | | | | [place] [address] | | | | | | [phone] | | | | | | | | +--------+---------+ + + + | 12/20/ | Office | Audiology | Elisabet Munson MS | | | 2019 | Visit | | [facility] [address] | | | | | [address] [place] | | | | | | [place] [address] | | | | | | [phone] | | | | | | | | +--------+---------+ + + + | 12/20/ | Office | Otolaryngology | Ulysses Genao MD | | | 2019 | Visit | | [address] [place] | | | | | | [address] [place], | | | | | | [place] [address] | | | | | | [phone] | | | | | | | | +--------+---------+ + + + documented as of this encounter Visit Diagnoses Not on filedocumented in this encounter"
--- OUTSIDE RECORDS SUMMARY | ~2019-10-17 | XMS | Encounter Summary ---
Demographics + + + | Address | [address] | | | [place] [address] | + + + | Home Phone [...] + +------+ + | Care Occupational Therapy Co Director Name | Role | Phone | [...] + + | 04/29/ | Telephone | [facility] | Alanis, | Medication Refill | | 2017 | | MEDICINE [address] [place] [address] | MD Petrona | Assistance | | | | [facility] | [address] [place] [address] | | | | | [place] [address] | [place] [address] | | | | | [phone] | [phone] | | | | | | | [...] | | | | | [place] [address] | | | | | | [phone] | | | | | | | | +--------+---------+ + + + | 12/20/ | Office | Audiology | Elisabet Munson MS | | | 2019 | Visit | | [facility] [address] | | | | | | [address] [place] | | | | | | [place] [address] | | | | | | [phone] | | | | | | | | +--------+---------+ + + + | 12/20/ | Office | Otolaryngology | Ulysses Genao MD | | | 2020 | Visit | | [address] [facility] | | | | | | [address] [place], | | | | | | [place] [address] | | | | | | [phone] | | | | | | | | +--------+---------+ + + + documented as of this encounter Visit Diagnoses Not on filedocumented in this encounter"
--- OUTSIDE RECORDS SUMMARY | ~2019-10-17 | XMS | Encounter Summary ---
Demographics + + + | Address | [address] | | | [place] [address] | + + + | Home Phone [...] Providers + +------+ + | Care Electric Wheelchair Repairer Name | Role | Phone | + +------+ + PCP | Unavailable | + +------+ + Encounter Details +--------+ + + + + | Date | Type | Department | Care Team | Description | +--------+ + + + + | 01/07/ | Abstract | | | | | [...]
--- OUTSIDE RECORDS SUMMARY | ~2019-10-17 | XMS | Encounter Summary ---
Demographics + + + | Address | [address] | | | [place] [address] | + + + | Home Phone [...] Team Providers + +------+ + | Care Pail Tester Name | Role | Phone | [...] + + | 11/09/ | Telephone | [facility] | Alanis, | Medical Problem | | 2018 | | MEDICINE [address] [place] [address] | MD Petrona | | | | | [facility] | [address] [place] [address] | | | | | [place] [address] | [place] [address] | | | | | [phone] | [phone] | | | | | | | [...] | | | | | [place] [address] | | | | | | [phone] | | | | | | | | +--------+---------+ + + + | 12/20/ | Office | Audiology | Elisabet Munson MS | | | 2019 | Visit | | [facility] [address] | | | | | | [address] [place] [address] [place] | | | | | | [place] [address] | | | | | | [phone] | | | | | | | | +--------+---------+ + + + | 12/20/ | Office | Otolaryngology | Ulysses Genao MD | | | 2020 | Visit | | [address] [place] | | | | | | [address] [place], | | | | | | [place] [address] | | | | | | [phone] | | | | | | | | +--------+---------+ + + + documented as of this encounter Visit Diagnoses Not on filedocumented in this encounter"
--- OUTSIDE RECORDS SUMMARY | ~2019-10-17 | XMS | Encounter Summary ---
Demographics + + + | Address | [address] | | | [place] [address] | + + + | Home Phone [...] Team Providers + +------+ + | Care On Line Csr Name | Role | Phone | + [...] + + | 01/05/ | Telephone | [facility] | Luther Brito MD | Results | | 2018 | | GASTROENTEROLOGY | [address] [facility] | | | | | [address] [facility] | [place], [place] | | | | | [address] [place], [place] | [address] | | | | | [address] | [phone] | | | | | [phone] | | | +--------+ + + + [...] | | | [facility] [address] [place] | | | | | | [place] [address] | | | | | | [phone] | | | | | | | | +--------+---------+ + + + | 12/20/ | Office | Audiology | Elisabet Munson MS | | | 2019 | Visit | | [facility] [address] | | | | | | [place] [address] [place] | | | | | | [place] [address] | | | | | | [phone] | | | | | | | | +--------+---------+ + + + | 12/20/ | Office | Otolaryngology | Ulysses Genao MD | | | 2019 | Visit | | [address] [facility] | | | | | | [address] [place], | | | | | | [place] [address] | | | | | | [phone] | | | | | | | | +--------+---------+ + + + documented as of this encounter Visit Diagnoses Not on filedocumented in this encounter"
--- OUTSIDE RECORDS SUMMARY | ~2019-10-17 | XMS | Encounter Summary ---
Demographics + + + | Address | [address] | | | [place] [address] | + + + | Home Phone [...] Providers + +------+ + | Care Project Development Leader Name | Role | Phone | [...] as of this encounter Progress Notes Interface, Collections Assistant In - 01/12/2005 10:09 AM PDT [id number] [facility] Date: 12/11/2004 Clinic: Telephone Note [...] sent to Ms. Meehan' home address at [facility] [address] [address]. The address was confirmed with Ms. Meehan prior to sending. Ms. Meehan has a followup appointment in Dr. Padgett's clinic on December 19, 2004. Nathalia Richard R.N., B.S.N. Liliya Kirkpatrick. / [id number] / [id number] / [id number] / Electronically signed by Nuris Chapman 12-20-2004 05:05:06 PM docushazia i n this encounter Plan of Treatment Not on filedocumented as of this encounter Visit Diagnoses Not on filedocumented in this encounter"
--- OUTSIDE RECORDS SUMMARY | ~2019-10-17 | XMS | Encounter Summary ---
Demographics + + + | Address | [address] | | | [place] [address] | + + + | Home Phone [...] Providers + +------+ + | Care Collar Baster Name | Role | Phone | + [...] | at [place] | [facility] | | | | | [address] | [place] [address] | | | | | [address] | | | | | | [place], 2nd floor | | | | | | [place], [place] | | | | | | [address] | | | | | | [phone] | | | +--------+ + + + [...]
--- OUTSIDE RECORDS SUMMARY | ~2019-10-17 | XMS | Encounter Summary ---
Demographics + + + | Address | [address] | | | [place] [address] | + + + | Home Phone [...] Team Providers + +------+ + | Care Parcel Post Carrier Name | Role | Phone | [...] Rd | | | | | | [place], [place] | | | | | | [address] | | | +--------+ + + + [...]
--- OUTSIDE RECORDS SUMMARY | ~2019-10-17 | XMS | Encounter Summary ---
Demographics + + + | Address | [address] | | | [place] [address] | + + + | Home Phone [...] Team Providers + +------+ + | Care Probation Agent Name | Role | Phone | [...] | +--------+ + + + + | 05/11/ | Telephone | [facility] | Alanis, | Results | | 2017 | | MEDICINE [address] [place] [address] | MD Petrona | | | | | [facility] | [address] [place] [address] | | | | | [place] [address] | [place] [address] | | | | | [phone] | [phone] | | | | | | | [...] | | | | | [place] [address] | | | | | | [phone] | | | | | | | | +--------+---------+ + + + | 12/20/ | Office | Audiology | Elisabet Munson MS | | | 2019 | Visit | | [facility] [address] | | | | | | [place] [address] [place] | | | | | | [place] [address] | | | | | | [phone] | | | | | | | | +--------+---------+ + + + | 12/20/ | Office | Otolaryngology | Ulysses Genao MD | | | 2019 | Visit | | [address] [facility] | | | | | | [address] [place], | | | | | | [place] [address] | | | | | | [phone] | | | | | | | | +--------+---------+ + + + documented as of this encounter Visit Diagnoses + + | Diagnosis | + + | Acute bilateral low back pain with bilateral sciatica - Primary | + + documented in this encounter"
--- OUTSIDE RECORDS SUMMARY | ~2019-10-17 | XMS | Encounter Summary ---
Demographics + + + | Address | [address] | | | [place] [address] | + + + | Home Phone [...] Team Providers + +------+ + | Care Clerical And Administrative Workers Name | Role | Phone | + +------+ + | Petrona Thapa | PCP | | | MD | | | + +------+ + Encounter Details +--------+ + + + + | Date | Type | Department | Care Team | Description | +--------+ + + + + | 12/18/ | Hospital | [facility] | Luther Brito MD | Abdominal pain, | | 2018 | Encounter | [facility] | [address] | unspecified | | | | [address] | [place], [place] | abdominal location; | | | | [place], [place] | [address] | Gastroesophageal | | | | [address] | [phone] | reflux disease, | | | | [phone] | | esophagitis presence | | | [...] You can't be awakened Date Last Reviewed: 04/01/201619994457-1312 [employer]. [address] [place] [address], [place] [address]. All righ ts reserved. This information is [...] | | | | [facility] [address] [place] | | | | | | [place] [address] | | | | | | [phone] | | | | | | | | +--------+---------+ + + + | 12/20/ | Office | Audiology | Elisabet Munson MS | | | 2019 | Visit | | [facility] [address] | | | | | [address] [place] | | | | | | [place] [address] | | | | | | [phone] | | | | | | | | +--------+---------+ + + + | 12/20/ | Office | Otolaryngology | Ulysses Genao MD | | | 2019 | Visit | | [address] | | | | | | [address] [place], | | | | | | [place] [address] | | | | | | [phone] | | | | | | | [...] 12/18/2017 | PROVATION | | 10:49 AMMRN: [id number] #: [id number] of : | | | 9Admit Type: AmbulatoryAge: 57Room: [facility] 01Gender: FemaleNote | | | Status: FinalizedAttending MD: Luther Brito [facility]cedure: | | | Upper GI endoscopyIndications: Generalized [...] the anesthesiologist and the | | | pharmacy laboratory technician in the pre-procedure area in the [...] | appearing mucosa. This was traversed. The dhvnq-se-xyifmsi limb | | | was characterized by healthy appearing mucosa. The | | | jejunojejunal anastomosis was characterized by healthy | | | appearing mucosa. The kmkfqkfh-wd-gvrtnbj limb was not examined | | | [...] AMScope Out: | | | 11:08:34 AM [facility], [address] | | | [place] [address] | | | - Return to GI [...] |Scope Out: 11:08:34 AM | | | [facility], [address] [place], [place] | | | [address] | | + + -+ + +---------+ [...] 12/18/2017 | PROVATION | | 10:43 AMMRN: [id number] #: [id number] of : | | | 9Admit Type: AmbulatoryAge: 57Room: [facility] 01Gender: FemaleNote | | | Status: FinalizedAttending MD: Luther Brito [facility]cedure: | | | ColonoscopyIndications: Generalized abdominal pain, [...] the anesthesiologist and the | | | pharmacy laboratory technician in the pre-procedure area in the [...] Scope In: 11:12:28 AMScope Out: 11:56:57 AM [place] | | | [facility], [address] [place] [address] | | | [phone] | | | - Await pathology results. [...] |Scope Out: 11:56:57 AM | | | [facility], [address] [place] [address] | | | [address] | | + + -+ + +---------+ [...] for specific diagnostic abnormality. | | | VR:[facility]:C2NR GROSS DESCRIPTION: Received in five parts. [...] | | slide preparation were performed by [employer] | | | [place] [address] (Recruitment Specialist: Stephen Jacobson, | | | Joanna CLIA#: [id number]). Professional interpretation was performed | | | by [employer] [facility], [facility] | | | [place] [address] (Recruitment Specialist: Stephen Donaldson | Anika Jacobson M.D.; CLIA#: [id number]). Diagnostician: Stephen Khan | | | Kavon [...]
--- OUTSIDE RECORDS SUMMARY | ~2019-10-17 | XMS | Encounter Summary ---
Demographics + + + | Address | [address] | | | [place] [address] | + + + | Home Phone [...] Team Providers + +------+ + | Care Instructional Technology Specialist Name | Role | Phone | + +------+ + | Petrona Thapa | PCP | | | MD | | | + +------+ + Reason for Visit +---------+ + | Reason | Comments | +---------+ + | Illness | | +---------+ + Encounter Details +--------+ + + + + | Date | Type | Department | Care Team | Description | +--------+ + + + + | 06/25/ | Telephone | [facility] | Alanis, | Illness | | 2018 | | MEDICINE [address] [place] [address] | MD Petrona | | | | | [facility] | [address] [place] [address] | | | | | [place] [address] | [place] [address] | | | | | [phone] | [phone] | | | | | | | [...] | | | | | [place] [address] | | | | | | [phone] | | | | | | | | +--------+---------+ + + + | 12/20/ | Office | Audiology | Elisabet Munson MS | | | 2019 | Visit | | [facility] [address] | | | | | | [place] [address] [place] | | | | | | [place] [address] | | | | | | [phone] | | | | | | | | +--------+---------+ + + + | 12/20/ | Office | Otolaryngology | Ulysses Genao MD | | | 2020 | Visit | | [address] [facility] | | | | | | [address] [place], | | | | | | [place] [address] | | | | | | [phone] | | | | | | | | +--------+---------+ + + + documented as of this encounter Visit Diagnoses Not on filedocumented in this encounter"
--- OUTSIDE RECORDS SUMMARY | ~2019-10-17 | XMS | Encounter Summary ---
Demographics + + + | Address | [address] | | | [place] [address] | + + + | Home Phone [...] Providers + +------+ + | Care Care Partner Name | Role | Phone | [...] | | | Ave Mailcode: CH4S | [facility] | | | | | [facility] | [place], [place] | | | | | and Healing, | [address] | | | | | [place] [address] [facility] | [phone] | | | | | Floor [place], [place] | | | | | | [address] | | | | | | [phone] | | | +--------+ + + + [...]
--- OUTSIDE RECORDS SUMMARY | ~2019-10-17 | XMS | Encounter Summary ---
Demographics + + + | Address | [address] | | | [place] [address] | + + + | Home Phone [...] Providers + +------+ + | Care Director Geothermal Operations Name | Role | Phone | [...] + + | Closed | Specialty | Podiatry | Diagnoses | | Strickland [facility], | | | Services | | Closed | Emmy-Jefft | [address] | | | Required | | nondisplaced | i, | [address] | | | | | fracture of | [address] | [address]VE | | | | | proximal | , [address] | [place], [place] | | | | | phalanx of | [address] | [address] | | | | | left great | [place], | Phone: | | | | | toe, initial | [place] | [phone] | | | | | encounter | [address] | Fax: | | | | | | Phone: | [phone] | | | | | | [phone] | | | | | | | Fax: | | | | | | | [phone] | | +--------+ + + + + + Encounter Details +--------+ + + + + | Date | Type | Department | Care Team | Description | +--------+ + + + + | 08/26/ | Orders Only | [facility] | Alanis, | Closed nondisplaced | | 2018 | | MEDICINE [address] | MD Petrona | fracture of proximal | | | | [address] [place] | [address] [place] | phalanx of left | | | | [place] [address] | [place] [address] | great toe, initial | | | | [phone] | [phone] | encounter (Primary | | | | | | [...] | | | | | [place] [address] | | | | | | [phone] | | | | | | | | +--------+---------+ + + + | 12/20/ | Office | Audiology | Elisabet Munson MS | | | 2019 | Visit | | [facility] | | | | | | [place] [address] [place] | | | | | | [place] [address] | | | | | | [phone] | | | | | | | | +--------+---------+ + + + | 12/20/ | Office | Otolaryngology | Ulysses Genao MD | | | 2020 | Visit | | [address] [facility] | | | | | | [address] [place], | | | | | | [place] [address] | | | | | | [phone] | | | | | | | | +--------+---------+ + + + + + +--------+ + + | Name | Type | Priori | Associated Diagnoses | Order Schedule | | | | ty | | | + + +--------+ + + | Podiatry, External - | Outpatient | Routin | Closed | Ordered: 08/26/2018 | | AMB Referral | Referral | e | nondisplaced | | | | | | fracture of proximal | | | | | | phalanx of left | | | | | | great toe, initial | | | | | | encounter | | + + +--------+ + + documented as of this encounter Visit Diagnoses + + | Diagnosis | + + | Closed nondisplaced fracture of proximal phalanx of left great toe, initial encounter | | - Primary | + + documented in this encounter"
--- OUTSIDE RECORDS SUMMARY | ~2019-10-17 | XMS | Encounter Summary ---
Demographics + + + | Address | [address] | | | [place] [address] | + + + | Home Phone [...] Team Providers + +------+ + | Care Rope Cleaner Name | Role | Phone | [...] Required | | | i, | [address] | | | | | osteoporosis | Sulaiman-Ivány | [place], | | | | | without | , MD [address] | [place] [address] | | | | | current | [address] | Phone: | | | | | pathological | [place], | [phone] | | | | | fracture | [place] | Fax: | | | | | | [address] | [phone] | | | | | | Phone: | | | | | | | [phone] | | | | | | | Fax: | | | | | | | [phone] | | +--------+ + + + + [...] Required | | | i, | [address] | | | | | osteoporosis | Sulaiman-Russell | [place], | | | | | without | , MD [address] | [place] [address] | | | | | current | [address] | Phone: | | | | | pathological | [place], | [phone] | | | | | fracture | [place] | Fax: | | | | | | [address] | [phone] | | | | | | Phone: | | | | | | | [phone] | | | | | | | Fax: | | | | | | | [phone] | | +--------+ + + + + + Encounter Details +--------+ + + + + | Date | Type | Department | Care Team | Description | +--------+ + + + + | 10/14/ | Hospital | [facility] | Alanis, | Age-related | | 2019 | Encounter | MED CTR OP INFUSION | MD Petrona | osteoporosis without | | | | [address] | [address] [facility] | current | | | | [place] | [place] [address] | pathological | | | | [address] | [phone] | fracture (Primary | | | | [phone] | | Dx) | +--------+ + + [...] + | Blood Pressure | 99/55 | 10/14/2018 11:00 AM | | | | | PDT | | + + + + + | Pulse | 64 | 10/14/2018 11:00 AM | | | | | PDT | | + + + + + | Temperature | 36 C (96.8 F) | 10/14/2018 10:24 AM | | | | | PDT | | + + + + + | Respiratory Rate | 16 | 10/14/2018 11:00 AM | | | | | PDT | | + + + + + | Oxygen Saturation | 97% | 10/14/2018 11:00 AM | | | | | PDT [...] a | capsule | | 19 | 9 | | capsule | day | | [...] Progress Notes Lisa Warren RN - 10/14/2018 11:41 AM PDT Vitals: 10/14/18 1024 10/14/18 1100 BP: [...] signed by: Lisa Warren RN 10/14/2018 11:41 eccLisa pringle RN - 0 10/14/2018 10:42 AM PDT Vitals: 10/14/18 1024 BP: 103/58 Pulse: 60 Resp: 16 Temp: 36 C (96.8 F) Belinda Meehan received into room 440, independent ambulation with accompanied by family. States here for Reclast infusion. Reports no change in condition, plan of care since last M D visit. Alert, oriented x 4, cooperative. Consent signed. Electronically signed by: Lisa Warren RN 10/14/2018 10:42 documented in this enc ounter Plan of [...] | | | | | [place] [address] | | | | | | [phone] | | | | | | | | +--------+---------+ + + + | 12/20/ | Office | Audiology | Elisabet Munson MS | | 2019 | Visit | | CASSANDRA MACK | | | | | | [facility] Laron Zhao | | | | | | [place] [address] | | | | | | [phone] | | | | | | | | +--------+---------+ + + + | 12/20/ | Office | Otolaryngology | Ulysses Genao MD | | | 2020 | Visit | | [address] [facility] | | | | | | [address] [place], | | | | | | [place] [address] | | | | | | [phone] | | | | | | | | +--------+---------+ + + + + + +--------+ + + | Name | Type | Priori | Associated Diagnoses | Order Schedule | | | | ty | | | + + +--------+ + + | * [facility] OP Infusion - | Outpatient | Routin | Age-related | 1 Occurrences | | AMB Referral | Referral | e | osteoporosis without | starting 10/14/2018 | | | | | current | until 10/14/2018 | | | | | pathological | [...] encounter Results LABS - EXTERNAL SCAN (10/12/2018 12:00 AM PDT) + + + | [...] AM PDT | | | | | Ginna 10/14/18 at 1100, For 1 dose | | | | | | + +---------+ +------+-------+------+ +---+---+ | | | +---+---+ documented in this encounter"
--- OUTSIDE RECORDS SUMMARY | ~2019-10-17 | XMS | Encounter Summary ---
Demographics + + + | Address | [address] | | | [place] [address] | + + + | Home Phone [...] Team Providers + +------+ + | Care Bus Analyst Name | Role | Phone | [...] | | | | Vertigo of | Uylsses Lau MD | [place], [place] | | | | | central | [address] | CCC-A [address] | | | | | origin | [address] | [address] | | | | | VNG/FAMILYCA | [place] | [address] [place] | | | | | RE/Emmy | [place], [place] | [place], [place] | | | | | Procedures | [address] | [address] Phone: | | | | | [place] | Phone: | [phone] | | | | | SPONTANEOUS | [phone] | Fax: | | | | | NYSTAGMUS | Fax: | [phone] | | | | | TEST SD | [phone] | | | | | | POSITIONAL | | | | | | | NYSTAGMUS | | | | | | | TEST SD | | | | | | | CALORIC | | | | | | | VESTIBULAR | | | | | | | TEST SD | | | | | | | OPTOKINETIC | | | | | | | NYSTAGMUS | | | | | | | TEST SD | | | | | | | OSCILLATING | | | | | | | TRACKING | | | | | | | TEST SD | | | | | | | SUPPLEMENTAL | | | | | | | ELECTRICAL | | | | | | | TEST SD | | | | | | | [...] + | 12/07/ | Office | [facility] | [place]isabet [place]son, [place] | Vertigo of central | | 2015 | Visit | AUDIOLOGY AND | [facility] [address] | origin, unspecified | | | | [facility] | [address] [facility] | laterality (Primary | | | | [address] | [place] [address] | Dx) | | | | [facility] | [phone] | | | | | [place] [address] | | | | | | [phone] | | | +--------+---------+ + + + [...] M.D. VNG testing revealed abnormal oculomotor subtests. [place] pike revealed nystagmus when [...] | | | | | [place] [address] | | | | | | [phone] | | | | | | | | +--------+---------+ + + + | 12/20/ | Office | Audiology | Elisabet Munson MS | | | 2019 | Visit | | [facility] [address] | | | | | | [address] [place] | | | | | | [place] [address] | | | | | | [phone] | | | | | | | | +--------+---------+ + + + | 12/20/ | Office | Otolaryngology | Ulysses Genao MD | | | 2019 | Visit | | [address] | | | | | | [address] [place], | | | | | | [place] [address] | | | | | | [phone] | | | | | | | [...]
--- OUTSIDE RECORDS SUMMARY | ~2019-10-17 | XMS | Encounter Summary ---
Demographics + + + | Address | [address] | | | [place] [address] | + + + | Home Phone [...] Providers + +------+ + | Care Assistant Producer Name | Role | Phone | + +------+ + | Pedrito Gutierrez MD | PCP | | + +------+ + Encounter Details +--------+---------+ + + + | Date | Type | Department | Care Team | Description | +--------+---------+ + + + | 11/24/ | Office | Preoperative | 2, [facility] Testboard Worker [address] | Other Specified | | 2007 | Visit | Medicine Clinic at | [facility] [address] | Pre-Operative | | | | [facility] 4th Floor [address] | [place] [address] | Examination; | | | | [address] | | Hemorrhagic Disorder | | | | Mailcode: CH4S | | due to Intrinsic | | | | [facility] | | Circulating | | | | and Healing, | | Anticoagulants | | | | Building 1,4th [facility] | | | | | | [place], [place] | | | | | | [address] | | | | | | [phone] | | | +--------+---------+ + + + [...] DEPARTMENT OF | [address] | [place] [address] | | | PATHOLOGY | [address] | | | + + + + + | [facility] DEPARTMENT OF | [address] | [place] [address] | | | PATHOLOGY | [address] [...] + + + + + | [facility] DEPARTMENT OF | [address] [facility] | [place] [address] | | | PATHOLOGY | [address] | | | + + + + + | [facility] DEPARTMENT OF | [address] [facility] | [place] [address] | | | PATHOLOGY | [address] [...] DEPARTMENT OF | [address] | [place] [address] | | | PATHOLOGY | [address] | | | + + + + + | [facility] DEPARTMENT OF | [address] | [place] [address] | | | PATHOLOGY | [address] [...] Performed At | + + + | [id number] Estimated GFR > 60 mL/min/1.73 sq m if non- | [facility] | | [place] 197136 Estimated GFR > 60 mL/min/1.73 sq m if | DEPARTMENT OF | | [place] GFR is estimated using the MDRD equation [...] + + + + + | [facility] | [address] [facility] | [place] [address] | | | PATHOLOGY | [address] | | | + + + + + | [facility] | [address] [place] [address] | [place] [address] | | | PATHOLOGY | [address] [...] + + | Ordered by an | [facility] DEPT OF | | unspecified provider. Please click on view image for the detailed | CARDIOLOGY | | interpretation from [employer] results. | | |results. | | | | | + + + + + + + + | Performing | Address | City/State/Zipcode | Phone Number | | Organization | | | | + + + + + | [facility] DEPT OF | [address] | [place], [place] | | | CARDIOLOGY | [address] | [address] | | + + + + + | [facility] DEPT OF | [address] | [place], [place] | | | CARDIOLOGY | [address] | [address] | | + + + + + documented in this encounter Visit Diagnoses + + | Diagnosis | + + | Other specified pre-operative examination | + + | Hemorrhagic disorder due to intrinsic circulating anticoagulants | + + documented in this encounter
--- OUTSIDE RECORDS SUMMARY | ~2019-10-17 | XMS | Encounter Summary ---
Demographics + + + | Address | [address] | | | [place] [address] | + + + | Home Phone [...] Providers + +------+ + | Care Lumber Marker Name | Role | Phone | [...] | Pain | Diagnoses | Miracle, | [place], | | | | Management | LBP (low | NIHARIKA Jean | Lukasz Rhodes, PhD | | | | | back pain) | [address] | [address] | | | | | DJD | [address] | Ave | | | | | (degenerativ | [place], [place] | [place] | | | | | e joint | [address] | [address] | | | | | disease) of | | Phone: | | | | | knee Knee | | [phone] | | | | | pain Major | | Fax: | | | | | depressive | | [phone] | | | | | disorder, | [...] / | Office | [facility] at [facility] | Lukasz Charles, | Major Depressive | | 2007 | Visit | [address] | PhD [address] | Disorder, Recurrent | | | | Mailcode: [facility] | [place], [place] | Episode, Moderate | | | | [place] for [facility] | [address] | ([facility]); LBP (Low Back | | | | and Healing, | [phone] | Pain); Fibromyalgia | | | | | | syndrome 729.1; | | | | Floor [place], [place] | | Adjustment Disorder | | | | [address] | | with Anxiety; | | | | [phone] | | Bilateral Knee Pain; | | [...] skills during intense pain episode s. Diagnosis: [place] I: 1. (296.32) Major depressive disorder, recurrent, moderate. 2. (309.24) Adjustment disorder with anxiety. 3. 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 [place] II: Deferred [place] III: abdominal pain, migraine headache, low back pain. [place] IV: low finances [place] V: GAF 55-60 Plan: return with next medical follow-up appointment. Check mood, knee surgery, relaxatio n, activity, distraction. Continue cognitive/behavioral therapy. Total time spent with patient was approximately 45 minutes. LUKASZ CHARLES [facility] [address] [facility], [address] [place] [address] documented in this encount er Plan of Treatment + + +--------+ + + | Name | Type | Priori | Associated Diagnoses | Order Schedule | | | | ty | | | + + +--------+ + + | LA PSYCHOTHERPY, | Procedures | Routin | Major Depressive | Ordered: 08/13/2007 | | OFFICE (16-54) | | e | Disorder, Recurrent | | | | | | Episode, Moderate | | | | | | ([facility]) LBP (Low Back | | | | [...]
--- OUTSIDE RECORDS SUMMARY | ~2019-10-17 | XMS | Encounter Summary ---
Demographics + + + | Address | [address] | | | [place] [address] | + + + | Home Phone [...] Team Providers + +------+ + | Care Protection Specialist Name | Role | Phone [...] pain | | 2005 | | Bariatric [address] | MD [address] | (recurrent, right | | | | [address] | [address] | abdominal, ED visit) | | | | Mailcode: L223A | [place], [place] | | | | | [facility] | [address] | | | | | [address] [place], [place] | [phone] | | | | | [address] | | | | | | [phone] | | | +--------+ + + + [...]
--- OUTSIDE RECORDS SUMMARY | ~2019-10-17 | XMS | Encounter Summary ---
Demographics + + + | Address | [address] | | | [place] [address] | + + + | Home Phone [...] Team Providers + +------+ + | Care Demonstrator Sales Name | Role | Phone | [...] + + | 08/18/ | Telephone | [facility] | Miranda Lambert, | Follow-up Diabetic | | 2006 | | Pain Center at | ANP | Assessment | | | | [facility] | | | | | | [address] | | | | | | Mailcode: CH15P | | | | | | [facility] | | | | | | and Healing, | | | | | | Building | | | | | | Floor [place], [place] | | | | | | [address] | | | | | | [phone] | | | +--------+ + + + [...]
--- OUTSIDE RECORDS SUMMARY | ~2019-10-17 | XMS | Encounter Summary ---
Demographics + + + | Address | [address] | | | [place] [address] | + + + | Home Phone [...] Providers + +------+ + | Care Police Booking Officer Name | Role | Phone | [...] | | Center at [facility] [address] | MANTEL CRAFTSMAN [address] | | | | | Sara Kovacs | , [address] | | | | | Mailcode: Center | [place], [place] | | | | | [facility] and | [address] | | | | | Healing, Building 2 | [phone] | | | | | [place], [place] | | | | | | [address] | | | | | | [phone] | | | +--------+ + + + [...]
--- OUTSIDE RECORDS SUMMARY | ~2019-10-17 | XMS | Encounter Summary ---
Demographics + + + | Address | [address] | | | [place] [address] | + + + | Home Phone [...] Providers + +------+ + | Care Welder Setter Resistance Machine Name | Role | Phone | + +------+ + PCP | Unavailable | + +------+ + Encounter Details +--------+ + + + + | Date | Type | Department | Care Team | Description | +--------+ + + + + | 01/21/ | Abstract | General Surgery | Unknown . | | | 2004 | | [address] | | | | | | Loop Mailcode: | | | | | | L223A Physician's | | | | | | [address] | | | | | | [place], [place] | | | | | | [address] | | | | | | [phone] | | | +--------+ + + + [...]
--- OUTSIDE RECORDS SUMMARY | ~2019-10-17 | XMS | Encounter Summary ---
Demographics + + + | Address | [address] | | | [place] [address] | + + + | Home Phone [...] Team Providers + +------+ + | Care Disk Operator Name | Role | Phone | [...] + + | 03/14/ | Office | [facility] | RileyDelfina joaquin, | Spondylosis with | | 2006 | Visit | Pain Center at | ANP | Myelopathy, Lumbar | | | | [facility] | | Region; Herniated | | | | [address] | | Lumbar | | | | Mailcode: CH15P | | Intervertebral Disc | | | | [facility] | | L4-5; Neck Pain; DJD | | | | and Healing, | | (Degenerative Joint | | | | Building | | Disease) of Left | | | | Floor [place], [place] | | Knee; Right shoulder | | | | [address] | | rotator cuff | | | | [phone] | | strain; Major | | | [...] previous 6 days. 2. May continue with [place] NTE 4 per day as prescribed 3. [...] Belinda Meehan is a 46 y.o. female [facility] Return Visit Chief Complaint: Chief Complaint Patient presents with Pain History of Present Illness: Belinda Meehan is a 46 y.o. year-old female with a history of chronic pain due to degenerative spine disease, abdominal pain, fibromyalgia and right rot ator cuff injury. Belinda reports pain in her left knee and having seen Dr. Morales in orth opedics at [facility], she reports that surgery is not an [...] swelling has resolved. Belinda has been using [place] 10/325 an average of 5 tablets per day. 1 tablet has an effecti ve duration of 5 hours "pain breaks through at about 4 hours", she reports taking a [place] ev eduardo 5 hours. She denies any [...] Collection Time Resulting Agency 07/30/2006 4:00 PM [facility] DEPARTMENT OF PATHOLOGY Component Results Component [...] previous 6 days. 2. May continue with [place] NTE 4 per day as prescribed 3. Continue with PT and Psychology as scheduled. 4. Continue with Trileptal 150mg 1 1/2 tablet twice a day 5. Follow up to review medications on 09/09/06 and call with any concerns or questions. DELFINA MOLINA [facility] Comprehensive Pain Center Mail code CH 4P [place] [facility] and [address] [address] Ailyn Foster - 08/27/19 9:09 [...] medication refills today? yes [facility] Plan of Treatment Not on [...]
--- OUTSIDE RECORDS SUMMARY | ~2019-10-17 | XMS | Encounter Summary ---
Demographics + + + | Address | [address] | | | [place] [address] | + + + | Home Phone [...] Team Providers + +------+ + | Care Garnett Machine Operator Helper Name | Role | [...] Rd | Urologist) | | | | [facility] | [place], [place] | | | | | and [place], | [address] | | | | | [facility] | [phone] | | | | | [place], [place] | | | | | | [address] | | | | | | [phone] | | | +--------+ + + + [...]
--- OUTSIDE RECORDS SUMMARY | ~2019-10-17 | XMS | Encounter Summary ---
Demographics + + + | Address | [address] | | | [place] [address] | + + + | Home Phone [...] Providers + +------+ + | Care High Heel Builder Name | Role | Phone | [...] + | 11/15/ | Office | [facility] | Emmy-Tajti, | Arthralgia of both | | 2019 | Visit | MEDICINE [address] | MD [place] | hands (Primary Dx); | | | | [address] [place] | [address] [facility] | Acquired | | | | [place] [address] | [place] [address] | hypothyroidism; | | | | [phone] | [phone] | Migraine without | | | | [...] Common migraine COPD (chronic obstructive pulmonary disease) ([facility]) Depression Diarrhea Dumping syndrome Fall at home Fatigue fracture of vertebra Fibromyalgia Full dentures GERD (gastroesophageal reflux disease) Glaucoma Hyperparathyroidism ([facility]) Hypothyroidism IBS (irritable bowel syndrome) Idiopathic scoliosis Leg edema Low back pain Lumbar postlaminectomy syndrome Lumbar radiculopathy primarily right 01/04/2015 Meniere syndrome Migraine with aura Migraines Muscle cramping Muscle spasm Myalgia Nausea Nonalcoholic hepatosteatosis Obesity Opioid dependence ([facility]) Orthostatic hypotension OLIVER (obstructive sleep apnea) Osteoarthritis, generalized Osteopenia Osteoporosis Palpitations Peripheral neuropathy Rheumatoid arthritis ([facility]) Right arm pain 01/04/2015 RLS (restless legs syndrome) S/P lumbar fusion 01/04/2015 Scoliosis Sleep apnea Spondylosis with myelopathy, lumbar region Stroke ([facility]) Syncope Tremor Type II or [...] Procedure: COLONOSCOPY; Surgeon: Luther Brito MD; Location: [facility] MEDICAL PROCEDURE UNIT DILATION AND CURETTAGE OF UTERUS ELBOW SURGERY FINGER TRIGGER RELEASE 2003 FINGER TRIGGER RELEASE 2010 GASTRIC BYPASS SURGERY 2004 HYSTERECTOMY 05/14/1980 JOINT REPLACEMENT Bilateral 2006 2007 KNEE ARTHROSCOPY 2005 LAPAROSCOPY 01/27/2015 LAPAROTOMY 2008 ROTATOR CUFF REPAIR 2005 SPINE SURGERY TONSILLECTOMY 1964 UPPER GASTROINTESTINAL ENDOSCOPY N/A 12/18/2017 Procedure: EGD; Surgeon: Luther Brito MD; Location: [facility] MEDICAL PROCEDURE UNIT CURRENT MEDICATIONS Current [...] (See Comments) Confused and questionable for seizures Qyhpwdasav-Fxbj-Ezeooaed Hives and Rash Cephalexin Hives Ciprofloxacin Hives [...] Note: Parts of this documentwere created using Keenko speech recognition software. As a r esult, [...] | | | | | [place] [address] | | | | | | [phone] | | | | | | | | +--------+---------+ + + + | 12/20/ | Office | Audiology | Elisabet Munson MS | | | 2019 | Visit | | [facility] [address] | | | | | | [address] [place] | | | | | | [place] [address] | | | | | | [phone] | | | | | | | | +--------+---------+ + + + | 12/20/ | Office | Otolaryngology | Ulysses Genao MD | | | 2019 | Visit | | [address] | | | | | | [address] [place], | | | | | | [place] [address] | | | | | | [phone] | | | | | | | [...] [address] | [place] | [phone] | | [facility] | | [address] | | | - LABORATORY | | [...] + | Performed at: 01 - [facility] [address], | REFERENCE LAB | | [place], [place] [id number] Cruise Counselor: Manish Chin MD, Phone: | [facility] | | [phone] Performed at: - [facility] | | | [place], [place] [id number] Cruise Counselor: Jeannine Mendoza MD, | | | Phone: [phone] | | + + + + + + + + | Performing | Address | City/State/Zipcode | Phone Number | | Organization | | | | + + + + + | REFERENCE LAB | [address] | [place], [place] | [phone] | | [facility] | [facility] | [address] | | + + + + + [...] + + | Performed at: 01 - [facility] [address], | REFERENCE LAB | | [place], [place] [address] Cruise Counselor: Bandar Gan MD, Phone: | [facility] | | [phone] | | + + + + + + + + | Performing | Address | City/State/Zipcode | Phone Number | | Organization | | | | + + + + + | REFERENCE LAB | [address] | [place], [place] | [phone] | | [facility] | [place] | [address] | | + + + + + Uric Acid (11/15/2018 9:59 AM PDT) + +-------+ + + + | Component | Value | Ref Range | Performed | Pathologist | | | | | At | Signature | + +-------+ + + + | Uric Acid | 5.4 | 3.1 - 7.8 mg/dL | [facility] | | | | [...] + | [facility] | [address] | [place] | [phone] | | [facility] | | [address] | | | - LABORATORY | | [...] [address] | [place] | [phone] | | [facility] | | [address] | | | - LABORATORY | | | | + + + + + Sedimentation Rate (11/15/2018 9:59 AM PDT) + +-------+ + + + | Component | Value | Ref Range | Performed | Pathologist | | | | | At | Signature | + +-------+ + + + | Erythrocyte | 4 | <30 mm/hr | [facility] | | | | | [...] [address] | [place] | [phone] | | [facility] | | [address] | | | - LABORATORY | | [...] 11 | 9 - 23 mg/dL | [facility] | | | | | | [facility] | | | | | | MEDICAL | | | | | | CENTER - | | | | | | LABORATORY | | + + + + + + | Creatinine | 0.82 | 0.55 - 1.02 | [facility] | | | | | mg/dL | [facility] | | | | | | MEDICAL | | | | | | CENTER - | | | | | | LABORATORY | | + + + + + + | eGFR if not | >60Comment: GLOMERULAR | >=60 | [facility] | | | | FILTRATION | mL/min/1.73m2 | [facility] | | | AL[place]IAN | RATE,ESTIMATED | | MEDICAL | | | | mL/min/1.60w5Iytw than | | CENTER - | | [...] | | | Phosphatase | | | [facility] | | [...] + + | [facility] | [address] | [place], [place] | [phone] | | [facility] | | [address] | | | - LABORATORY | | [...] | | | | First dose on [facility] 10/15/17 at 1215 | | | [...]
--- OUTSIDE RECORDS SUMMARY | ~2019-10-17 | XMS | Encounter Summary ---
Demographics + + + | Address | [address] | | | [place] [address] | + + + | Home Phone [...] Team Providers + +------+ + | Care Lane Marker Installer Name | Role | Phone | [...] as of this encounter Progress Notes Interface, Mixed Crop And Livestock Farmer In - 03/26/2006 1:05 AM [facility] [place] [address] [place], [place] [address] or February 22, 2001 Pedrito Gutierrez M.D. [facility] [address] [place] [address] RE: BELINDA MEEHAN MR #: [id number] Dear [...] regarding this patient. Sincerely, Issac Meeks M.D. sterile processing technologist Division of Endocrinology, Diabetes, and Clinical Resident Inspector, Metabolic Disorders Clinic PBD / HS [id number] / [id number] / [id number] / [id number] signed by Interface, Mixed Crop And Livestock Farmer In at 03/26/2006 1:05 AM PDTdocume nted in this encounter Plan of Treatment Not on filedocumented as of this encounter Visit Diagnoses Not on filedocumented in this encounter
--- OUTSIDE RECORDS SUMMARY | ~2019-10-17 | XMS | Encounter Summary ---
Demographics + + + | Address | [address] | | | [place] [address] | + + + | Home Phone [...] Team Providers + +------+ + | Care Live In Companion Name | Role | Phone | + [...] + + | / | Office | [facility] | Delfina Molina, | LBP (Low Back Pain); | | 2007 | Visit | Pain Center at | ANP | Spondylosis with | | | | [facility] | | Myelopathy, Lumbar | | | | [address] | | Region; Herniated | | | | Mailcode: CH15P | | Lumbar | | | | [facility] | | Intervertebral Disc | | | | and Healing, | | L4-5; Fibromyalgia | | | | Building | | syndrome 729.1; | | | | Floor [place], [place] | | Bilateral Knee Pain; | | | | [address] | | Arthroplasty of the | | | | [phone] | | Left Knee; DJD | | [...] Belinda Meehan is a 47 y.o. female [facility] Comprehensive Pain [...] drawing has be completed, which I reviewed. CMM TECHNICIAN Brief Pain Inventory: Right Now: 9 Least [...] Physical therapy: Two days per week in [place] knees and both legs, shoulders and back [...] social history. Pending 08/30/07 DR Cadet in [facility]: right knee arthroplasty. Urology evaluation for [...] Collection Time Resulting Agency 05/25/2007 4:06 PM [facility] DEPARTMENT OF RADIOLOGY Component Results [...] with any concerns or questions. DELFINA MOLINA [facility] Mail code CH 4P [facility] and [facility] [address] [facility] [address] Ailyn Bello 08/13/19 08 8:52 [...]
--- OUTSIDE RECORDS SUMMARY | ~2019-10-17 | XMS | Encounter Summary ---
Demographics + + + | Address | [address] | | | [place] [address] | + + + | Home Phone [...] Team Providers + +------+ + | Care Ramp And Cargo Supervisor Name | Role | Phone | [...] | Osteopenia | MD Beto | [facility] | | | | | Procedures | [address] | [address] | | | | | CONSULT TO | Ave | Naeem Mcrae | | | | | BONE | [place], [place] | Rd Mailcode: | | | | | DENSITOMETRY | [address] | RODERICK Eduardo | | | | | | Phone: | Naeem De [place] Rosa | | | | | | [phone] | [place], [place] | | | | | | Fax: | [address] | | | | | | [phone] | Phone: | | | | | | | [phone] | | | | | | | Fax: | | | | | | | [phone] | +--------+--------+ + + + + Encounter Details +--------+ + + + + | Date | Type | Department | Care Team | Description | +--------+ + + + + | 07/24/ | Hospital | Endocrinology, | Sjh, Bmd Dexa | | | 2008 | Encounter | Diabetes and | [address] | | | | | Clinical Nutrition | [facility], | | | | | [address] | [place] [address] | | | | | [facility] Mailcode: | | | | | | [address] | | | | | | [place], [place] | | | | | | [address] | | | | | | [phone] | | | +--------+ + + + [...] from the Results section by P Byron [[id number]] on | | | 04/17/2009 at 5:16 PM (File: [id number]) | | + + + BONE DENSITOMETRY [...]
--- OUTSIDE RECORDS SUMMARY | ~2019-10-17 | XMS | Encounter Summary ---
Demographics + + + | Address | [address] | | | [place] [address] | + + + | Home Phone [...] Providers + +------+ + | Care Water Analyst Name | Role | Phone | [...] | | | [facility] | [place], [place] | and counseling | | | | [address] | [address] | | | | | [address] | [phone] | | | | | [facility] | | | | | | Physician's | | | | | | [facility] [place], | | | | | | [place] [address] | | | | | | [phone] | | | +--------+ + + + [...]
--- OUTSIDE RECORDS SUMMARY | ~2019-10-17 | XMS | Encounter Summary ---
Demographics + + + | Address | [address] | | | [place] [address] | + + + | Home Phone [...] Providers + +------+ + | Care Business Performance Analyst Name | Role | Phone | [...] + | 07/14/ | Refill | [facility] | Alanis, | Medication Refill | | 2017 | | MEDICINE [address] [place] [address] | MD Petrona | | | | | [facility] | [address] [place] [address] | | | | | [place] [address] | [place] [address] | | | | | [phone] | [phone] | | | | | | | [...] | | | | | [place] [address] | | | | | | [phone] | | | | | | | | +--------+---------+ + + + | 12/20/ | Office | Audiology | Elisabet Munson MS | | | 2019 | Visit | | [facility] [address] | | | | | | [place] [address] [place] | | | | | | [place] [id number] | | | | | | [phone] | | | | | | | | +--------+---------+ + + + | 12/20/ | Office | Otolaryngology | Ulysses Genao MD | | | 2020 | Visit | | [address] [facility] | | | | | | [address] [place], | | | | | | [place] [address] | | | | | | [phone] | | | | | | | | +--------+---------+ + + + documented as of this encounter Visit Diagnoses Not on filedocumented in this encounter"
--- OUTSIDE RECORDS SUMMARY | ~2019-10-17 | XMS | Encounter Summary ---
Demographics + + + | Address | [address] | | | [place] [address] | + + + | Home Phone [...] Team Providers + +------+ + | Care Cardiopulmonary Technologist Chief Name | Role | Phone | + +------+ + PCP | Unavailable | + +------+ + Encounter Details +--------+ + + + + | Date | Type | Department | Care Team | Description | +--------+ + + + + | 07/30/ | Hospital | [facility] | Ulysses Genao MD | | | 2011 - | Encounter | MED CTR OP REHAB | [address] [place] | | | | | [address] [place] | [address] [place], | | | / | | [place] [address] | [place] [address] | | | 2011 | | [phone] | [phone] | | | | | | | [...] | | | | | | [place] [address] | | | | | | [phone] | | | | | | | | +--------+---------+ + + + | 12/20/ | Office | Audiology | Elisabet Munson MS | | | 2019 | Visit | | [facility] [address] | | | | | [address] [place] | | | | | | [place] [address] | | | | | | [phone] | | | | | | | | +--------+---------+ + + + | 12/20/ | Office | Otolaryngology | Ulysses Genao MD | | | 2019 | Visit | | [address] [place] | | | | | | [address] [place], | | | | | | [place] [address] | | | | | | [phone] | | | | | | | | +--------+---------+ + + + documented as of this encounter Visit Diagnoses Not on filedocumented in this encounter"
--- OUTSIDE RECORDS SUMMARY | ~2019-10-17 | XMS | Encounter Summary ---
Demographics + + + | Address | [address] | | | [place] [address] | + + + | Home Phone [...] Providers + +------+ + | Care Information Specialist Name | Role | Phone | [...] | | | Mailcode: PV240 | [place] [address] | | | | | [facility] | [phone] | | | | | [place], [place] | | | | | | [address] | | | | | | [phone] | | | +--------+ + + + [...]
--- OUTSIDE RECORDS SUMMARY | ~2019-10-17 | XMS | Encounter Summary ---
Demographics + + + | Address | [address] | | | [place] [address] | + + + | Home Phone [...] + +------+ + | Care Occupational Therapy Technician Name | Role | Phone | + +------+ + | Petrona Thapa | PCP | | | MD | | | + +------+ + Encounter Details +--------+ + + + + | Date | Type | Department | Care Team | Description | +--------+ + + + + | 07/16/ | Orders Only | [facility] | Alains, | | | 2017 | | MED CTR OP INFUSION | MD Petrona | | | | | [address] | [address] [facility] | | | | | [place] | [place] [address] | | | | | [address] | [phone] | | | | | [phone] | | | +--------+ + + + [...] | | | | | [place] [address] | | | | | | [phone] | | | | | | | | +--------+---------+ + + + | 12/20/ | Office | Audiology | Elisabet Munson MS | | | 2019 | Visit | | [facility] [address] | | | | | [address] [place] | | | | | | [place] [address] | | | | | | [phone] | | | | | | | | +--------+---------+ + + + | 12/20/ | Office | Otolaryngology | Ulysses Genao MD | | | 2019 | Visit | | [address] [place] | | | | | | [address] [place], | | | | | | [place] [address] | | | | | | [phone] | | | | | | | | +--------+---------+ + + + documented as of this encounter Visit Diagnoses Not on filedocumented in this encounter"
--- OUTSIDE RECORDS SUMMARY | ~2019-10-17 | XMS | Encounter Summary ---
Demographics + + + | Address | [address] | | | [place] [address] | + + + | Home Phone [...] Providers + +------+ + | Care Clinical Psychology Teacher Name | Role | Phone | [...]
--- OUTSIDE RECORDS SUMMARY | ~2019-10-17 | XMS | Encounter Summary ---
Demographics + + + | Address | [address] | | | [place] [address] | + + + | Home Phone [...] Team Providers + +------+ + | Care Proprietary Trader Name | Role | Phone | [...] | | | | [address] Physician's | [place], [place] | | | | | [address] | [address] | | | | | [place], [place] | [phone] | | | | | [address] | | | | | | [phone] | | | +--------+ + + + [...] | + + + + + | [facility] DEPARTMENT OF | [address] | [place] [address] | | | PATHOLOGY | [address] | | | + + + + + | [facility] DEPARTMENT OF | [address] | [place] [address] | | | PATHOLOGY | [address] [...] + + + + + | [facility] DEPARTMENT OF | [facility] | [place] [address] | | | PATHOLOGY | [address] | | | + + + + + | [facility] DEPARTMENT OF | [facility] | [place] [address] | | | PATHOLOGY | [address] [...] + + + + + | [facility] DEPARTMENT OF | [address] | [place] [address] | | | PATHOLOGY | [address] | | | + + + + + | [facility] DEPARTMENT OF | [address] [facility] | [place] [address] | | | PATHOLOGY | [address] [...] 1: BLOSS[place], | | | | | [place] | Joanna GOODWINEXAM:PA and | | [...] + + + + + | [facility] DEPARTMENT OF | [address] | [place], [place] [address] | | | PATHOLOGY | [address] | | | + + + + + | [facility] DEPARTMENT OF | [address] | [place] [address] | | | PATHOLOGY | [address] [...] CARE CENTER | [address] | [place] [address] | | | PATHOLOGY | [address] | | | + + + + + | [facility] | [address] | [place] [address] | | | PATHOLOGY | [address] | | | + + + + + documented in this encounter Visit Diagnoses Not on filedocumented in this encounter"
--- OUTSIDE RECORDS SUMMARY | ~2019-10-17 | XMS | Encounter Summary ---
Demographics + + + | Address | [address] | | | [place] [address] | + + + | Home Phone [...] Team Providers + +------+ + | Care Needlemaker Name | Role | Phone | + [...] | Pain | Diagnoses | Miracle, | Hockley, | | | | Management | LBP (low | NIHARIKA Jean | Lukasz Rhodes, PhD | | | | | back pain) | [address] | [address] | | | | | DJD | [address] | Ave | | | | | (degenerativ | [place], [place] | [place], [place] | | | | | e joint | [address] | [address] | | | | | disease) of | | Phone: | | | | | knee Knee | | [phone] | | | | | pain Major | | Fax: | | | | | depressive | | [phone] | | | | | disorder, | [...] 04/28/ | Office | Pain Center at [facility] | Lukasz Charles, | Major Depressive | | 2007 | Visit | [address] | PhD [address] | Disorder, Recurrent | | | | Mailcode: CH15P | [place], [place] | Episode, Mild (HCC); | | | | [place] [facility] | [address] | LBP (Low Back | | | | and Healing, | [phone] | Pain); Migraine | | | | | | Headache | | | | Floor [place], [place] | | | | | | [address] | | | | | | [phone] | | | +--------+---------+ + + + [...] scheduled to come here after surgery. Diagnosis: August[place] I: 1. (296.31) Major depressive disorder, recurrent, mild. 2. (309.24) Adjustment disorder with anxiety. 3. 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 [place] II: Deferred [place] III: abdominal pain, migraine headache, low back pain. [place] IV: low finances Augusta V: GAF 55-60 Plan: return with next medical follow-up appointment. Check mood, pain, surgical recovery , relaxation, activity, distraction, eating. Ask about headaches, fainting, Thanksgiving. Continue cognitive/behavioral therapy. Total time spent with patient was approximately 45 minutes. LUKASZ CHARLES PHD [facility] [address] [facility] [address] [place] [address] documented in this encount er Plan of Treatment + + +--------+ + + | Name | Type | Priori | Associated Diagnoses | Order Schedule | | | | ty | | | + + +--------+ + + | [facility], | Procedures | Routin | Major Depressive | Ordered: 04/28/2008 | | OFFICE (63-02) | | e | Disorder, Recurrent | [...]
--- OUTSIDE RECORDS SUMMARY | ~2019-10-17 | XMS | Encounter Summary ---
Demographics + + + | Address | [address] | | | [place] [address] | + + + | Home Phone [...] Providers + +------+ + | Care Solar Process Engineer Name | Role | Phone [...] | Diagnoses | Rileyacle, | Fili Pt Gyro Mechanic | | | | Therapy | Muscle | NIHARIKA Jean | Chh1 [address] | | | | | strain Neck | [address] | [address] | | | | | pain | [address] | Mailcode: | | | | | Fibromyalgia | [place], [place] | CH3P Center | | | | | Radicular | [address] | for Health | | | | | pain in left | | and Healing, | | | | | arm | | Building 1 | | | | | Procedures | | [place], [place] | | | | | PHYSICAL | | [address] | | | | | THERAPY | | Phone: | | | | | REFERRAL | | [phone] | +--------+--------+ + + + + Reason for Visit + + + | Reason | Comments | + + + | LBP - Low back pain | | + + + Encounter Details +--------+---------+ + + + | Date | Type | Department | Care Team | Description | +--------+---------+ + + + | 08/22/ | Office | [facility] | Delfina Lambert, | Muscle Strain hips; | | 2008 | Visit | Pain Center at | ANP | Fibromyalgia; Neck | | | | [facility] | | Pain; Radicular Pain | | | | [address] | | in Left Arm; | | | | Mailcode: CH15P | | Dizziness; Black | | | | [place] for [facility] | | Out; Falling | | | | and Healing, | |Falling | | | | Building | | | | | | Floor [place], [place] | | | | | | [address] | | | | | | [phone] | | | +--------+---------+ + + + [...] visit Schedule MRI of the neck at [facility] Use your TENS for the muscle pain Schedule follow up after the MRI to review results documented in this encounter Progress Notes Delfina Lambert ANP - 08/22/2008 10:22 AM PDTFormatting of this note might be different fr om the original. 08/22/2008 Belinda Meehan is a 48 y.o. female [facility] Comprehensive Pain Center Return Visit [...] appointment to see lumbar spine surgery in [place] on . Psychiatric History: depressed mood, sleep [...] 278 01/18 Paniculectomy Hx lumbar fusion 05/2008 [id number] with bone spur removals Family History Problem [...] to get the MRI results befor planning [facility] care. Belinda was compliant with all [...] COMPREH[facility] Mail code CH 4P [facility] and [address] [address] Ailyn Foster Malissa - 03/2009 [...]
--- OUTSIDE RECORDS SUMMARY | ~2019-10-17 | XMS | Encounter Summary ---
Demographics + + + | Address | [address] | | | [place] [address] | + + + | Home Phone [...] Providers + +------+ + | Care Nuclear Fuel Enrichment Technician Name | Role | Phone | [...] + + | 03/30/ | Telephone | [facility] | Alanis, | Appointment | | 2019 | | MEDICINE [address] [place] [address] | MD Petrona | | | | | [facility] | [address] [place] [address] | | | | | [place] [address] | [place] [address] | | | | | [phone] | [phone] | | | | | | | [...] | | | | | [place] [address] | | | | | | [phone] | | | | | | | | +--------+---------+ + + + | 12/20/ | Office | Audiology | Elisabet Munson MS | | | 2020 | Visit | | [facility] [address] | | | | | | [address] [place] [address] [place] | | | | | | [place] [address] | | | | | | [phone] | | | | | | | | +--------+---------+ + + + | 12/20/ | Office | Otolaryngology | Ulysses Genao MD | | | 2020 | Visit | | [address] | | | | | | [address] [place], | | | | | | [place] [address] | | | | | | [phone] | | | | | | | | +--------+---------+ + + + documented as of this encounter Visit Diagnoses Not on filedocumented in this encounter"
--- OUTSIDE RECORDS SUMMARY | ~2019-10-17 | XMS | Encounter Summary ---
Demographics + + + | Address | [address] | | | [place] [address] | + + + | Home Phone [...] Team Providers + +------+ + | Care Rapier Insertion Loom Fixer Name | Role | Phone | + +------+ + | Sulaiman Carrera MD | PCP | | + +------+ + Encounter Details +--------+ + + + + | Date | Type | Department | Care Team | Description | +--------+ + + + + | 06/30/ | Telephone | [facility] at [facility] | Lukasz Ogden, | | | 2013 | | [address] | PhD [address] | | | | | Mailcode: CH15P | [place], [place] | | | | | [facility] | [address] | | | | | and Healing, | [phone] | | | | | Building | | | | | | Floor [place], [place] | | | | | | [address] | | | | | | [phone] | | | +--------+ + + + [...]
--- OUTSIDE RECORDS SUMMARY | ~2019-10-17 | XMS | Encounter Summary ---
Demographics + + + | Address | [address] | | | [place] [address] | + + + | Home Phone [...] Team Providers + +------+ + | Care Duct Cleaner Name | Role | Phone | + +------+ + PCP | Unavailable | + +------+ + Encounter Details +--------+ + + + + | Date | Type | Department | Care Team | Description | +--------+ + + + + | 08/11/ | Hospital | [facility] | Ruben Tobias | | | 2001 | Encounter | MED CTR SLEEP | MD Raji [address] | | | | | [place] [address] | [facility] | | | | | [place], [place] | [place] [address] | | | | | [address] | [phone] | | | | | [phone] | | | +--------+ + + + [...] | | | | | [place] [address] | | | | | | [phone] | | | | | | | | +--------+---------+ + + + | 12/20/ | Office | Audiology | Elisabet Munson MS | | | 2019 | Visit | | [facility] [address] | | | | | [address] [place] | | | | | | [place] [address] | | | | | | [phone] | | | | | | | | +--------+---------+ + + + | 12/20/ | Office | Otolaryngology | Ulysses Genao MD | | | 2019 | Visit | | [address] | | | | | | [address] [place], | | | | | | [place] [address] | | | | | | [phone] | | | | | | | | +--------+---------+ + + + documented as of this encounter Visit Diagnoses Not on filedocumented in this encounter"
--- OUTSIDE RECORDS SUMMARY | ~2019-10-17 | XMS | Encounter Summary ---
Demographics + + + | Address | [address] | | | [place] [address] | + + + | Home Phone [...] Team Providers + +------+ + | Care Wrecking Supervisor Name | Role | Phone | + +------+ + PCP | Unavailable | + +------+ + Encounter Details +--------+ + + + + | Date | Type | Department | Care Team | Description | +--------+ + + + + | 05/20/ | Office | | Note, Outpatient | [...] as of this encounter Progress Notes Interface, Multi Operation Machine Operator In - 01/12/2005 9:01 AM PDT [id number] [facility] Date: 05/20/2004 Clinic: [facility] Reason for Visit: Six months' followup after gastric bypass surgery. A 44-year-old lady, she was morbidly obese, started with a weight of 338. She had a gastric bypass surgery, and for today it is 6 months' postoperatively, and she lost about 100 pounds with a weight of 222 today. She is eating okay, having normal bowel movement, denies any fever, chills, or diarrhea. In the meanwhile, she had her recently 3 weeks ago broken vertebrae 7, 8, and 9 compression fractures and just suddenly with no obvious reason. Her complaint was only burning sensation throughout her back. She is taking her vitamin D, and she is on calcium and also vitamin E and 12. Physical Examination Vital Signs: Her weight is 228 . Her blood pressure is 112/82. She has her calculated BMI 52 and in no apparent distress. Chest: Chest is clear to auscultation bilateral. Heart: Her heart has regular rate and rhythm. Abdomen: Abdomen is soft, nontender, and nondistended. She has a huge or large pannus. Assessment and Plan: A 6-month followup gastric bypass surgery, recently had 3 vertebrae compressional fractures, otherwise she is doing ok. We are going to check her vitamin D level today and CMP. She is encouraged to continue all her vitamins and minerals and also ranitidine. We are going to see her in the clinic back in 6 months. The patient was seen and examined with Dr. Chris Padgett. Ruddy Moreno M.D. Resident, Surgery Chris Padgett M.D. MS / HS [id number] / [id number] / [id number] / [id number] documented i n this encounter Plan of Treatment Not on filedocumented as of this encounter Visit Diagnoses Not on filedocumented in this encounter"
--- OUTSIDE RECORDS SUMMARY | ~2019-10-17 | XMS | Encounter Summary ---
Demographics + + + | Address | [address] | | | [place] [address] | + + + | Home Phone [...] Providers + +------+ + | Care Paper Feeder Name | Role | Phone | [...] + | 07/17/ | Telephone | [facility] | Alanis, | Medical Problem | | 2017 | | MEDICINE [address] [place] [address] | MD Petrona | | | | | [facility] | [address] [place] [address] | | | | | [place] [address] | [place] [address] | | | | | [phone] | [phone] | | | | | | | [...] | | | | | [place] [address] | | | | | | [phone] | | | | | | | | +--------+---------+ + + + | 12/20/ | Office | Audiology | Elisabet Munson MS | | | 2019 | Visit | | [facility] [address] | | | | | | [address] [place] [address] [place] | | | | | | [place] [address] | | | | | | [phone] | | | | | | | | +--------+---------+ + + + | 12/20/ | Office | Otolaryngology | Ulysses Genao MD | | | 2020 | Visit | | [address] | | | | | | [address] [place], | | | | | | [place] [address] | | | | | | [phone] | | | | | | | | +--------+---------+ + + + documented as of this encounter Visit Diagnoses Not on filedocumented in this encounter"
--- OUTSIDE RECORDS SUMMARY | ~2019-10-17 | XMS | Encounter Summary ---
Demographics + + + | Address | [address] | | | [place] [address] | + + + | Home Phone [...] Providers + +------+ + | Care Commercial Portfolio Manager Name | Role | Phone | [...] MD Petrona | | | | | [facility] | [address] [place] [address] | | | | | [place] [address] | [place] [address] | | | | | [phone] | [phone] | | | | | | | [...] | | | | | [place] [address] | | | | | | [phone] | | | | | | | | +--------+---------+ + + + | 12/20/ | Office | Audiology | Elisabet Munson MS | | | 2019 | Visit | | [facility] [address] | | | | | | [place] [address] [place] | | | | | | [place] [address] | | | | | | [phone] | | | | | | | | +--------+---------+ + + + | 12/20/ | Office | Otolaryngology | Ulysses Genao MD | | | 2020 | Visit | | [address] [facility] | | | | | | [address] [place], | | | | | | [place] [address] | | | | | | [phone] | | | | | | | | +--------+---------+ + + + documented as of this encounter Visit Diagnoses Not on filedocumented in this encounter"
--- OUTSIDE RECORDS SUMMARY | ~2019-10-17 | XMS | Encounter Summary ---
Demographics + + + | Address | [address] | | | [place] [address] | + + + | Home Phone [...] Providers + +------+ + | Care Supervisor Dog License Officer Name | Role | Phone | + +------+ + | Petrona Thapa | PCP | | | MD | | | + +------+ + Reason for Visit + + + | Reason | Comments | + + + | ER Follow-up | | + + + Encounter Details +--------+ + + + + | Date | Type | Department | Care Team | Description | +--------+ + + + + | 06/26/ | Telephone | [facility] | Alanis, | ER Follow-up | | 2017 | | MEDICINE [address] [place] [address] | MD Petrona | | | | | [place] | [address] [place] [address] | | | | | [place] [address] | [place] [address] | | | | | [phone] | [phone] | | | | | | | [...] | | | | | [place] [address] | | | | | | [phone] | | | | | | | | +--------+---------+ + + + | 12/20/ | Office | Audiology | Elisabet Munson MS | | | 2019 | Visit | | [facility] [address] | | | | | | [address] [place]on [address] | | | | | | [place] [address] | | | | | | [phone] | | | | | | | | +--------+---------+ + + + | 12/20/ | Office | Otolaryngology | Ulysses Genao MD | | | 2020 | Visit | | [address] [facility] | | | | | | [address] [place], | | | | | | [place] [address] | | | | | | [phone] | | | | | | | | +--------+---------+ + + + documented as of this encounter Visit Diagnoses Not on filedocumented in this encounter"
--- OUTSIDE RECORDS SUMMARY | ~2019-10-17 | XMS | Encounter Summary ---
Demographics + + + | Address | [address] | | | [place] [address] | + + + | Home Phone [...] Providers + +------+ + | Care Manager Machine Name | Role | Phone | [...] | | | [facility] | [place], [place] | | | | | [address] | [address] | | | | | [address] | [phone] | | | | | [facility] | | | | | | Physician's | | | | | | Pavilion [place], | | | | | | [place] [address] | | | | | | [phone] | | | +--------+ + + + [...]
--- OUTSIDE RECORDS SUMMARY | ~2019-10-17 | XMS | Encounter Summary ---
Demographics + + + | Address | [address] | | | [place] [address] | + + + | Home Phone [...] Providers + +------+ + | Care Automotive Parts Counter Person Name | Role | Phone | [...] | | | [facility] | [place], [place] | | | | | [address] | [address] | | | | | [address] | [phone] | | | | | Physician's [address] | | | | | | Physician's | | | | | | [place], | | | | | | [place] [address] | | | | | | [phone] | | | +--------+---------+ + + + [...]
--- OUTSIDE RECORDS SUMMARY | ~2019-10-17 | XMS | Encounter Summary ---
Demographics + + + | Address | [address] | | | [place] [address] | + + + | Home Phone [...] Team Providers + +------+ + | Care Ammonia Distiller Name | Role | Phone | + [...] Description | +--------+--------+ + + + | 12/26/ | Refill | [facility] | Alanis, | Medication Refill | | 2017 | | MEDICINE [address] [place] [address] | MD Petrona | | | | | [facility] | [address] [place] [address] | | | | | [place] [address] | [place] [address] | | | | | [phone] | [phone] | | | | | | | [...] | | | | | [place] [address] | | | | | | [phone] | | | | | | | | +--------+---------+ + + + | 12/20/ | Office | Audiology | Elisabet Munson MS | | | 2019 | Visit | | [facility] [address] | | | | | | [place] [address] [place] | | | | | | [place] [address] | | | | | | [phone] | | | | | | | | +--------+---------+ + + + | 12/20/ | Office | Otolaryngology | Ulysses Genao MD | | | 2020 | Visit | | [address] [facility] | | | | | | [address] [place], | | | | | | [place] [address] | | | | | | [phone] | | | | | | | | +--------+---------+ + + + documented as of this encounter Visit Diagnoses Not on filedocumented in this encounter"
--- OUTSIDE RECORDS SUMMARY | ~2019-10-17 | XMS | Encounter Summary ---
Demographics + + + | Address | [address] | | | [place] [address] | + + + | Home Phone [...] Providers + +------+ + | Care Records Administrator Name | Role | Phone [...] + | 06/07/ | Refill | [facility] | Alanis, | Medication Refill | | 2017 | | MEDICINE [address] [place] [address] | MD Petrona | | | | | [facility] | [address] [place] [address] | | | | | [place] [address] | [place] [address] | | | | | [phone] | [phone] | | | | | | | [...] | | | | | [place] [address] | | | | | | [phone] | | | | | | | | +--------+---------+ + + + | 12/20/ | Office | Audiology | Elisabet Munson MS | | | 2019 | Visit | | [facility] [address] | | | | | | [place] [address] [place] | | | | | | [place] [address] | | | | | | [phone] | | | | | | | | +--------+---------+ + + + | 12/20/ | Office | Otolaryngology | Ulysses Genao MD | | | 2020 | Visit | | [address] [facility] | | | | | | [address] [place], | | | | | | [place] [address] | | | | | | [phone] | | | | | | | | +--------+---------+ + + + documented as of this encounter Visit Diagnoses Not on filedocumented in this encounter"
--- OUTSIDE RECORDS SUMMARY | ~2019-10-17 | XMS | Encounter Summary ---
Demographics + + + | Address | [address] | | | [place] [address] | + + + | Home Phone [...] Team Providers + +------+ + | Care Purifying Plant Operator Name | Role | Phone [...] | Procedures | [address] | [place] | | | | | CONSULT TO | [facility] | [address] | | | | | GI PROCEDURE | Rd | floor | | | | | UNIT: SM | [place], [place] | [place], [place] | | | | | [address]EL | [address] | [address] | | | | | CAPSULE | Phone: | Phone: | | | | | ENDOSCOPY | [phone] | [phone] | | | | | | | Fax: | | | | | | | [phone] | +--------+--------+ + + + + Consultation [...] | | | | | Procedures | [facility] | [place], [place] | | | | | CONSULT TO | Rd | [address] | | | | | PAIN CENTER | [place], [place] | | | | | | | [address] | | | | | | | Phone: | | | | | | | [phone] | | +--------+--------+ + + + + Encounter Details +--------+---------+ + + + | Date | Type | Department | Care Team | Description | +--------+---------+ + + + | 04/07/ | Office | [facility] Division of | Carlos Arreola, | Iron Deficiency; | | 2005 | Visit | Gastroenterology/Hep | [address] | Chronic Abdominal | | | | atology [address] | [facility] | Pain | | | | [address] | [place] [address] | | | | | Mailcode: PV310 | [phone] | | | | | Physician's Pavilion | | | | | | [address] | | | | | | [place], [place] | | | | | | [address] | | | | | | [phone] | | | +--------+---------+ + + + [...] December reviewed and normal (past ed below). [facility] labs received and reviewed: neg O&P UPPER [...] HEPATIS NODES. Transcribed By: Armaan Rivera : [id number] : 1224 Approved By: CT ABDOMEN AND [...] HEPATIS NODES. Transcribed By: Armaan Mata : [id number] : 1224 Approved By: Carlos Benton - 3:59 PM PDTPt seen previously seen by nh for chronic pain and PK, returns to [...]
--- OUTSIDE RECORDS SUMMARY | ~2019-10-17 | XMS | Encounter Summary ---
Demographics + + + | Address | [address] | | | [place] [address] | + + + | Home Phone [...] Providers + +------+ + | Care Supervisor Boilermaking Shop Name | Role | Phone | [...] Pavilion | | | | | | [place], [place] | | | | | | [address] | | | | | | [phone] | | | +--------+ + + + [...]
--- OUTSIDE RECORDS SUMMARY | ~2019-10-17 | XMS | Encounter Summary ---
Demographics + + + | Address | [address] | | | [place] [address] | + + + | Home Phone [...] Team Providers + +------+ + | Care Optics Engineer Name | Role | Phone | [...] | | | | | Encounter | [place], [place] | [place] | | | | | for | [address] | [address] | | | | | long-term | | Phone: | | | | | (current) | | [phone] | | | | | use of other | | Fax: | | | | | medications | | [phone] | | | | | LBP (low [...] | Diagnoses | Paco, | Fili Pt Paper Products Supervisor | | | | Therapy | Myalgia and | Rosi T, ANP | [address] | | | | | myositis, | [address] | | | | | unspecified | [address] | Mailcode: | | | | | LBP (low | [place], [place] | [facility] | | | | | back pain) | [address] | for Health | | | | | Chronic | | and Healing, | | | | | shoulder | | [address] | | | | | pain Muscle | | [place], [place] | | | | | strain | | [address] | | | | | Radicular | | Phone: | | | | | pain in left | | [phone] | | | | | arm Neck [...] | | pain | [place], [place] | [place], [place] | | | | | | [address] | [address] | | | | | | Phone: | | | | | | | [phone] | | | | | | | Fax: | | | | | | | [phone] | | +--------+--------+ + + + + Encounter Details +--------+---------+ + + + | Date | Type | Department | Care Team | Description | +--------+---------+ + + + | 04/05/ | Office | [facility] Comprehensive | Rosi Antonio, | LBP (low back pain) | | 2012 | Visit | Pain Center at | ANP | (Primary Dx); | | | | [facility] | | Fibromyalgia | | | | [address] | | syndrome 729.1; | | | | Mailcode: CH15P | | Encounter for | | | | [place] [facility] | | Long-Term (Current) | | | | and Healing, | | Use of Opioids; | | | | | | Chronic Bilateral | | | | Floor [place], [place] | | Shoulder Pain; | | | | [address] | | Muscle Strain hips; | | | | [phone] | | Radicular pain in | | [...] to discuss these treatment options. Consult to [facility] physical therapy: A supervised physical [...] you have questions or concerns. [facility] [address] Mail Code: [place] [address] documented in this encounter Progress Notes Rosi Antonio ANP - 04/05/2013 9:28 AM PDTFormatting of this note might be different fro m the original. [facility] Office Visit 04/05/2013 Belinda Meehan; ; : 1960 Ms. Meehan was referred for pain management consultation by Taqueria Raman NP [address] [place] [address] Chief Complaint Patient presents with New patient [...] to taper off gabapentin 2. Order for [facility] neurology Dr. Taniya Guerrero if [...] Dr. Lit Cintron in [place] at the [facility] and had good relief [...] included: Epidural steroid injections she received in [place] and helped for a short time SECURITY SUPPORT ANALYST Brief Pain Inventory: (ten= worst possible pain [...] right knee Lumbar fusion 05/2008 & 2011 [id number] with bone spur removals Appendectomy Cholecystectomy section [...] Hives Mainly in the legs Clindamycin Codeine Bxqgbyb-Qxjnrgghnt-Fbe-Caff Balance problems Fioricet W/Codeine (Urknnaugba-Dlaazcjgtc-Vhj-Cod) Keflex (Cephalexin) Morphine IM ( only in [facility]) made gut pain worse 08/27/06: Trial [...] levels. As part of today's visit the [facility] new patient questionnaire [...] you expect from your visits to the [facility] ? Don't know [...] Overview Note: Surgery 05/15/08 Dr Ricky Garnett [facility] to get operative reports Osteopenia 08/24/2007 LBP [...] before her lumbar surgeries and recently in [place]. She has short-term relief from the se treatments. I would like her to return to see Dr. Murali Montero to discuss these treatment options. Consult to [facility] physical therapy: A supervised physical [...] is my privilege to be part of [facility] health care team. Pl ease free to contact me at any time if you have questions or concerns. I spent 30 minutes with the patient of which more than 50% was spent cvatw-fg-tjyq in [facility] pain questionnaire, medical record, consultation, discussion, addressing questions and counselling/education. [facility] Callum Kovacs Mail Code: [place] [id number] mith, Maris Lopez MA - 04/05/2013 8:25 [...]
--- OUTSIDE RECORDS SUMMARY | ~2019-10-17 | XMS | Encounter Summary ---
Demographics + + + | Address | [address] | | | [place] [address] | + + + | Home Phone [...] | | | | Clinical Nutrition | [place], [place] | | | | | [address] | [address] | | | | | Loop Mailcode: OPC5 | [phone] | | | | | Outpatient Clinic | | | | | | [facility] | | | | | | [place] [address] | | | | | | [phone] | | | +--------+ + + + [...] + + + | [facility] | [address] | [place] [address] | | | LABORATORY | | | [...] | uIU/ml | | | | | [facility] | | | | | | Laboratories. | | | | + + + + + + + + | Specimen | + + | | + + + + + + + | Performing | Address | City/State/Zipcode | Phone Number | | Organization | | | | + + + + + | [facility] | [address] | [place] [address] | | | LABORATORY | | | [...] | + + + + + | [facility] | [address] | [place] [address] | | | LABORATORY | | | [...] | | | SERUM | performed by [facility] | | | | | | [facility] | | | | | | Laboratories. | | | | + + + + + + + + | Specimen | + + | | + + + + + + + | Performing | Address | City/State/Zipcode | Phone Number | | Organization | | | | + + + + + | [facility] | [address] | [place] [address] | | | LABORATORY | | | [...] + + | [facility] | [address] | [place] [address] | | | PATHOLOGY | [address] | | | + + + + + | [facility] | [address] | [place] [address] | | | PATHOLOGY | [address] | | | + + + + + documented in this encounter Visit Diagnoses Not on filedocumented in this encounter"
--- OUTSIDE RECORDS SUMMARY | ~2019-10-17 | XMS | Encounter Summary ---
Demographics + + + | Address | [address] | | | [place] [address] | + + + | Home Phone [...] Providers + +------+ + | Care President Financial Institution Name | Role | Phone | + +------+ + | Maria Esther Cintron MD | PCP | | + +------+ + Encounter Details +--------+ + + + + | Date | Type | Department | Care Team | Description | +--------+ + + + + | 04/19/ | Telephone | [facility] | Chris Padgett, | | | 2007 | | [place] [address] | [address] [facility] | | | | | [place] Mailcode: CH4S | Naeem Mcrae | | | | | [facility] | [place], [place] | | | | | and Healing, | [address] | | | | | Building , 6th | [phone] | | | | | Floor [place], [place] | | | | | | [address] | | | | | | [phone] | | | +--------+ + + + [...]
--- OUTSIDE RECORDS SUMMARY | ~2019-10-17 | XMS | Encounter Summary ---
Demographics + + + | Address | [address] | | | [place] [address] | + + + | Home Phone [...] Providers + +------+ + | Care Commercial Stripper Name | Role | Phone | [...]
--- OUTSIDE RECORDS SUMMARY | ~2019-10-17 | XMS | Encounter Summary ---
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 | Visit | [facility] at [facility] | [address] [facility] | Myelopathy, Lumbar | | | | [place] [address] [place], | Region; Neck Pain; | | | | [address] [place] Mailcode: | [place] [address] | Herniated Lumbar | | | | CH15[facility] | | Intervertebral Disc | | | | Health and Healing, | | L4-5; Fibromyalgia | | | | Building | | syndrome 729.1; NO | | | | Floor [place], [place] | | DIAGNOSIS RECEIVED | | | | [address] | | | | | | [phone] | | | +--------+---------+ + + + [...] encounter Progress Notes Delfina Molina - 12/02/2006 11:31 AM PDT Addended by: DELFINA MOLINA NP on: 12/02/2006 11: 31:58 AM Modules accepted: Level of Service, SmartSet elfina Molina - 12/02 11:31 AM PDTPhysical Therapy Medicare Authorization/Review Physician Note Date: December 02, 2006 Patient: Belinda Meehan, [id number], 1960 I agree with the proposed Physical Therapy Treatment Plan. Provider: DELFINA BUNDY elfina Molina - 007 11:31 AM PDTThis encounter was opened in error. Please disregard this note. athalia Arora - 007 12:26 PM PDT PROGRESS NOTE: Physical Therapy Medicare Progress Note Date: 10/07/2006 Belinda Meehan [id number]. 1960 Start of Care: 06/23/2006 Referring Provider: [...] 05/29/2006 Insurance: Medicare Number of used/authorized visits: 02/21 Medicare certification from: 09/13/2006 through 10/12/2006 Subjective: Reported back pain 11/22, and underwent MRI of left knee yesterday. Objective: Patient returned for f/u visit regarding back issues. She has had a couple of f alls recently because of her left knee locking and giving out. The MRI revealed and left me dial meniscal tear. Patient continues walking at [facility] on a daily basis, (when she is no t in [place] for appts), 30-40 minutes, and her HEP 1-3 X/day. Patient will have a f/u vis it with Dr. Ibarra regarding her left knee on October 23. Patient is currently in the process of packing and moving, she is able to do packing of light articles and stand for 15 minutes at a time. Patient's primary complaint regarding her back is burning after sitting nonsupp orted or standing. Treatment: In nonsupported sitting position, emphasized bracing with lower abdominals and slight posterior tilt of pelvis with trunk vertical which reduced her symptoms. At home pedro brown has been using a back brace when she gets the burning symptoms which also helps. Also, in standing against the wall patient was able to simulate same alignment with bracing and n oted good reduction of symptoms. In supine hook lying patient continued with lumbopelvic stab.: Alternating leg bracing Isometric lower abdominals with posterior pelvic tilt and hip ADD isometrics Modified bridging progressed to increased lever arm Manual resistance at pelvis and hips to challenge lumbopelvic stab. Alternating sides Supine with ball supporting bilateral LE's, pull in/push out at shortened lever arm Sidelying clam shells, right and left sides Patient performed 5-10 reps of all exercises, required skilled manual cuing for proper perf ormance of exercises. Patient advised to continue these same exercises and increase repetitions to 10-15 reps BID 45 minutes was spent on therapeutic exercise Assessment: Patient has diffuse symptoms that affect her functional progress; and at this t erika it is primarily her left knee joint that keeps her from progressing further. Patient nguyen s a good understanding of her HEP and needs to continue core strengthening to facilitate ADL 's. Plan: At this time patient will continue her HEP as progressed in today; with possible quintero sfer of her physical therapy on a local basis, pending issue of left knee joint. Treatment began: 1109 Treatment ended: 115 Nathalia Arora, Physical Therapist License #[id number] documented in this encoun ter Plan of Treatment + + +--------+ + + | Name | Type | Priori | Associated Diagnoses | Order Schedule | | | | ty | | | + + +--------+ + + | [facility] THERAPEUTIC | Procedures | Routin | Spondylosis with | Ordered: 10/07/2006 | | EXERCISES | | e | [...] and myositis, unspecified | + + | NO DIAGNOSIS RECEIVED | + + documented in this encounter"
--- OUTSIDE RECORDS SUMMARY | ~2019-10-17 | XMS | Encounter Summary ---
Demographics + + + | Address | [address] | | | [place] [address] | + + + | Home Phone [...] Team Providers + +------+ + | Care Envelope Sealer Operator Name | Role | Phone | [...] Clinics | | | | | | [address] [place] | | | | | | Mailcode: CH15P | | | | | | [place] [facility] | | | | | | and Healing, | | | | | | Building | | | | | | Floor [place], [place] | | | | | | [address] | | | | | | [phone] | | | +--------+ + + + [...]
--- OUTSIDE RECORDS SUMMARY | ~2019-10-17 | XMS | Encounter Summary ---
Demographics + + + | Address | [address] | | | [place] [address] | + + + | Home Phone [...] Providers + +------+ + | Care Software Sales Representative Name | Role | Phone [...] | | | OFFICE VISIT | | [address] Phone: | | | | | REGULAR | | [phone] | | | | | | | Fax: | | | | | | | [phone] | +--------+--------+ + + + + Encounter Details +--------+---------+ + + + | Date | Type | Department | Care Team | Description | +--------+---------+ + + + | 12/30/ | Office | [facility] | Elisabet Munson MS | Subjective tinnitus | | 2018 | Visit | AUDIOLOGY AND | [facility] [address] | of left ear (Primary | | | | [facility] | [address] [place] | Dx) | | | | [address] | [place] [address] | | | | | [address] [place] | [phone] | | | | | [place] [address] | | | | | | [phone] | | | +--------+---------+ + + + [...] | | | | | | [address] [place] [address] | | | | | | [place] [address] | | | | | | [phone] | | | | | | | | +--------+---------+ + + + | 12/20/ | Office | Audiology | Elisabet Munson MS | | | 2019 | Visit | | [facility] [address] | | | | | | [address] [place] | | | | | | [place] [address] | | | | | | [phone] | | | | | | | | +--------+---------+ + + + | 12/20/ | Office | Otolaryngology | Ulysses Genao MD | | | 2019 | Visit | | [address] | | | | | | [address] [place], | | | | | | [place] [address] | | | | | | [phone] | | | | | | | [...]
--- OUTSIDE RECORDS SUMMARY | ~2019-10-17 | XMS | Encounter Summary ---
Demographics + + + | Address | [address] | | | [place] [address] | + + + | Home Phone [...] Providers + +------+ + | Care Station Gateman Name | Role | Phone | [...] [address] | | | | | | [place], [place] | | | | | | [address] | | | | | | [phone] | | | +--------+ + + + [...]
--- OUTSIDE RECORDS SUMMARY | ~2019-10-17 | XMS | Encounter Summary ---
Demographics + + + | Address | [address] | | | [place] [address] | + + + | Home Phone [...] Providers + +------+ + | Care Industrial Education Teacher Name | Role | Phone [...] | | | | | Encounter | [place], [place] | [place] | | | | | for | [address] | [address] | | | | | long-term | | Phone: | | | | | (current) | | [phone] | | | | | use of other | | Fax: | | | | | medications | | [phone] | | | | | LBP (low [...] 04/21/ | Office | Pain Center at [facility] | Lukasz Charles, | Major depressive | | 2012 | Visit | [address] | PhD [address] | disorder, recurrent | | | | Mailcode: CH15P | [place], [place] | episode, moderate | | | | [place] [facility] | [address] | ([facility]) (Primary Dx); | | | | and Healing, | [phone] | LBP (low back pain); | | | | | | Fibromyalgia; | | | | Floor [place], [place] | | Adjustment disorder | | | | [address] | | with anxiety | | | | [phone] | | | +--------+---------+ + + + [...] provider who recommended that she return to [facility] for pain assessment and treatment. She [...] some changes in her living situation. Diagnosis: [place] I: 1. (296.32) Major depressive disorder, recurrent, moderate. 2. (309.24) Adjustment disorder with anxiety. [place] II: Deferred [place] III: abdominal pain, migraine headache, low back pain, fibromyalgia. [place] IV: low finances [place] V: GAF 55-60 Plan: return in 1 month. Check mood, pain, activity. Ask about visiting with Dr. Montero, spinal cord stimulator, any changes at home. Continue cognitive/behavioral therapy. Total time spent with patient was approximately 50 minutes. LUKASZ CHARLES PHD [facility] [address] [place] [address] [place] [address] documented in this en counter Plan of [...]
--- OUTSIDE RECORDS SUMMARY | ~2019-10-17 | XMS | Encounter Summary ---
Demographics + + + | Address | [address] | | | [place] [address] | + + + | Home Phone [...] Team Providers + +------+ + | Care Archivist Political History Name | Role | Phone | + +------+ + | Petrona Thapa | PCP | | | MD | | | + +------+ + Reason for Visit +--------+ + | Reason | Comments | +--------+ + | LABS | | +--------+ + Encounter Details +--------+ + + + + | Date | Type | Department | Care Team | Description | +--------+ + + + + | 10/11/ | Telephone | [facility] | Alanis, | LABS | | 2019 | | MEDICINE [address] [place] [address] | MD Petrona | | | | | [facility] | [address] [place] [address] | | | | | [place] [address] | [place] [address] | | | | | [phone] | [phone] | | | | | | | [...] | | | | | | [facility] [address] | | | | | | [place] [address] | | | | | | [phone] | | | | | | | | +--------+---------+ + + + | 12/20/ | Office | Audiology | Elisabet Munson MS | | | 2019 | Visit | | [facility] [address] | | | | | | [place] [address] [address] | | | | | | [place] [address] | | | | | | [phone] | | | | | | | | +--------+---------+ + + + | 12/20/ | Office | Otolaryngology | Ulysses Genao MD | | | 2019 | Visit | | [address] [facility] | | | | | | [address] [place], | | | | | | [place] [address] | | | | | | [phone] | | | | | | | | +--------+---------+ + + + documented as of this encounter Visit Diagnoses + + | Diagnosis | + + | Osteoporosis, unspecified osteoporosis type, unspecified pathological fracture | | presence - Primary | + + documented in this encounter"
--- OUTSIDE RECORDS SUMMARY | ~2019-10-17 | XMS | Encounter Summary ---
Demographics + + + | Address | [address] | | | [place] [address] | + + + | Home Phone [...] Team Providers + +------+ + | Care Argon Tester Name | Role | Phone | [...] | | | | | Procedures | [facility] | Mailcode: | | | | | CONSULT TO | Rd | [facility] | | | | | NEUROLOGY | [place], [place] | for Health | | | | | | [address] | and Healing, | | | | | | Phone: | Building 1, | | | | | | [phone] | 8th Floor | | | | | | | [place], [place] | | | | | | | [address] | | | | | | | Phone: | | | | | | | [phone] | | | | | | | Fax: | | | | | | | [phone] | +--------+--------+ + + + + Encounter Details +--------+---------+ + + + | Date | Type | Department | Care Team | Description | +--------+---------+ + + + | 03/24/ | Office | Neurology at | Taniya Guerrero, | Migraine Headache | | 2007 | Visit | [facility] & | | (Primary Dx) | | | | Healing [address] | | | | | | Bethanie Mailcode: [facility] | | | | | | [facility] | | | | | | and Healing, | | | | | | Building | | | | | | Floor [place], [place] | | | | | | [address] | | | | | | [phone] | | | +--------+---------+ + + + [...] low blood pressure. 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 Social History Main [...] touch symmetrically throughout. Cerebellar testing shows normal lgqecc-kt-plmx and finger tapping. On gait testing, she [...] the names of 3 headache specialists in [place]- Dr. Koby García, Dr. Dakota Sweet and [...]
--- OUTSIDE RECORDS SUMMARY | ~2019-10-17 | XMS | Encounter Summary ---
Demographics + + + | Address | [address] | | | [place] [address] | + + + | Home Phone [...] Team Providers + +------+ + | Care Functional Tester Name | Role | Phone | [...] Lab Results | | 2012 | | [place] [facility] [address] | [address] | | | | | Sara Kovacs | [facility] 350 | | | | | Mailcode: Center | [place], [place] | | | | | for Health and | [address] | | | | | [place] [address] | [phone] | | | | | [place], [place] | | | | | | [address] | | | | | | [phone] | | | +--------+ + + + [...]
--- OUTSIDE RECORDS SUMMARY | ~2019-10-17 | XMS | Encounter Summary ---
Demographics + + + | Address | [address] | | | [place] [address] | + + + | Home Phone [...] Providers + +------+ + | Care Insurance Claims Specialist Name | Role | Phone | [...] + + | 03/08/ | Telephone | [facility] | Alanis, | Hospitalization | | 2017 | | MEDICINE [address] [place] [address] | MD Petrona | | | | | [facility] | [address] [place] [address] | | | | | [place] [address] | [place] [address] | | | | | [phone] | [phone] | | | | | | | [...] | | | | | [place] [address] | | | | | | [phone] | | | | | | | | +--------+---------+ + + + | 12/20/ | Office | Audiology | Elisabet Munson MS | | | 2019 | Visit | | [facility] [address] | | | | | | [address] | | | | | | [place] [address] | | | | | | [phone] | | | | | | | | +--------+---------+ + + + | 12/20/ | Office | Otolaryngology | Ulysses Genao MD | | | 2020 | Visit | | [address] | | | | | | [address] [place], | | | | | | [place] [address] | | | | | | [phone] | | | | | | | | +--------+---------+ + + + documented as of this encounter Visit Diagnoses Not on filedocumented in this encounter"
--- OUTSIDE RECORDS SUMMARY | ~2019-10-17 | XMS | Encounter Summary ---
Demographics + + + | Address | [address] | | | [place] [address] | + + + | Home Phone [...] Team Providers + +------+ + | Care Workforce Investment Act Career Manager Name | Role | Phone | [...] + | 02/15/ | Refill | [facility] | Alanis, | Medication Refill | | 2018 | | MEDICINE [address] [place] [address] | MD Petrona | | | | | [facility] | [address] [place] [address] | | | | | [place] [address] | [place] [address] | | | | | [phone] | [phone] | | | | | | | [...] | | | | | [place] [address] | | | | | | [phone] | | | | | | | | +--------+---------+ + + + | 12/20/ | Office | Audiology | Elisabet Munson MS | | | 2019 | Visit | | [facility] [address] | | | | | | [place] [address] [place] | | | | | | [place] [address] | | | | | | [phone] | | | | | | | | +--------+---------+ + + + | 12/20/ | Office | Otolaryngology | Ulysses Genao MD | | | 2020 | Visit | | [address] [facility] | | | | | | [address] [place], | | | | | | [place] [address] | | | | | | [phone] | | | | | | | | +--------+---------+ + + + documented as of this encounter Visit Diagnoses Not on filedocumented in this encounter"
--- OUTSIDE RECORDS SUMMARY | ~2019-10-17 | XMS | Encounter Summary ---
Demographics + + + | Address | [address] | | | [place] [address] [...] + +------+ + | Care Vice President Underwriting Name | Role | Phone | + [...] | | | [facility] | [place], [place] | | | | | Pavilion [address] | [address] | | | | | [address] | [phone] | | | | | Physician's | | | | | | Pavilion, [facility] floor | | | | | | [place], [place] | | | | | | [address] | | | | | | [phone] | | | +--------+ + + + [...] | | | | | performed at [facility] | | | | | | [facility] [...] + + + | [facility] | [address] | [place] [address] | | | LABORATORY | | | [...] | + + + + + | [facility] | [address] | [place] [address] | | | LABORATORY | | | [...] | [facility] | | | | | [facility] | | | | | | Laboratories. | | | | + + + + + + + + | Specimen | + + | | + + + + + + + | Performing | Address | City/State/Zipcode | Phone Number | | Organization | | | | + + + + + | [facility] | [address] | [place] [address] | | | LABORATORY | | | [...] | | | SERUM | performed by [facility] | | | | | | [facility] | | | | | | Laboratories. | | | | + + + + + + + + | Specimen | + + | | + + + + + + + | Performing | Address | City/State/Zipcode | Phone Number | | Organization | | | | + + + + + | [facility] | [address] | [place] [address] | | | LABORATORY | | | [...] + | [place] DEPARTMENT OF | [address] [facility] | [place] [address] | | | PATHOLOGY | [address] | | | + + + + + | [place] DEPARTMENT OF | [address] [facility] | [place] [address] | | | PATHOLOGY | [address] [...] | + + + + + | [facility] | [facility] | [place] [address] | | | PATHOLOGY | [address] | | | + + + + + | [facility] | [facility] | [place] [address] | | | PATHOLOGY | [address] | | | + + + + + documented in this encounter Visit Diagnoses Not on filedocumented in this encounter"
--- OUTSIDE RECORDS SUMMARY | ~2019-10-17 | XMS | Encounter Summary ---
Demographics + + + | Address | [address] | | | [place] [address] | + + + | Home Phone [...] Team Providers + +------+ + | Care Switchboard Manager Name | Role | Phone | [...] | | escu | [address] | [place] [address] | | | | | Procedures | [place], | Phone: | | | | | OFFICE VISIT | [place] | [phone] | | | | | REGULAR | [address] | Fax: | | | | | | Phone: | [phone] | | | | | | [phone] | | | | | | | Fax: | | | | | | | [phone] | | +--------+--------+ + + + + Encounter Details +--------+---------+ + + + | Date | Type | Department | Care Team | Description | +--------+---------+ + + + | 12/07/ | Office | [facility] | Ulysses Dsouza MD | BPPV (benign | | 2015 | Visit | OTOLARYNGOLOGY [address] | [address] | paroxysmal | | | | [address] | [address] [place], | positional vertigo), | | | | [place] | [place] [address] | left (Primary Dx); | | | | [address] | [phone] | Vertigo of central | | | | [phone] | | origin, left | +--------+---------+ + [...] MD - 12/07/2014 1:48 PM PDT [facility] OTOLARYNGOLOGY [address] [facility] [address] OFFICE NOTE ULYSSES DSOUZA MD Patient: BELINDA MEEHAN Admitting: MR #: [id number] LOC: PT TYPE: Adm Date: 12/07/2014 : 1960 DATE OF VISIT: 12/07/2014. The patient is having a tremendous problem with her balance. At times she gets a spinning type sensation, other times she just tends to fall down and recently she has developed a w rist drop on the right arm. She has seen an orthopedist who put her in a splint. The [facility] ent has completed an MRI scan [...] discretion. ULYSSES DSOUZA MD Dictated by ULYSSES DSOUAZ MD 12/07/2014 13:48:42 Transcribed on 12/08/2014 04:46:49 by [facility] job# [id number] Confirmation #: [id number] signed by Ulysses Dsouza MD at 12/08/2014 8:52 AM Ulysses Arnold MD - 12/07/2014 1:43 PM PDTSee dictation #[id number] signed by Dmitriy Dsouza MD at 12/07/2014 [...] | | | | | | [place] [address] | | | | | | [phone] | | | | | | | | +--------+---------+ + + + | 12/20/ | Office | Audiology | Elisabet Munson MS | | | 2019 | Visit | | [facility] [address] | | | | [address] [place] | | | | | | [place] [address] | | | | | | [phone] | | | | | | | | +--------+---------+ + + + | 12/20/ | Office | Otolaryngology | Ulysses Dsouza MD | | | 2019 | Visit | | [address] | | | | | | [address] [place], | | | | | | [place] [address] | | | | | | [phone] | | | | | | | | +--------+---------+ + + + documented as of this encounter Visit Diagnoses + + | Diagnosis | + + | BPPV (benign paroxysmal positional vertigo), left - Primary | + + | Vertigo of central origin, left | + + documented in this encounter
--- OUTSIDE RECORDS SUMMARY | ~2019-10-17 | XMS | Encounter Summary ---
Demographics + + + | Address | [address] | | | [place] [address] [...] | + + +---------+ + | Marco Anotnio Wells | ECON | Unknown | | + + +---------+ + Care Team Providers + +------+ + | Care Still Operator Batch Or Continuous Name | Role | Phone | + [...] Pain; Status Post | | | | [place], [place] | | Bariatric Surgery | | | | [address] | | | | | | [phone] | | | +--------+------+ + + + [...] Performed At | + + + | [id number] Estimated GFR > 60 mL/min/1.73 sq m if non- | [facility] | | Maltese 104373 Estimated GFR > 60 mL/min/1.73 sq m if | DEPARTMENT OF | | Maltese GFR is estimated using the MDRD equation [...] + + + + | [facility] | [address] | [place] [address] | | | PATHOLOGY | [address] | | | + + + + + | [facility] DEPARTMENT | [address] | [place] [address] | | | PATHOLOGY | [address] | | | + + + + + INR (08/28/2008 3:31 PM PDT) + + + + + + | Component | Value | Ref Range | Performed | Pathologist | | | | | At | Signature | + + + + + + | INR | 0.96Comment: | 0.90 - 1.20 INR | [facility] | | | | INR Therapeutic ranges [...] + + + + | [facility] | [address] [facility] | [place] [address] | | | PATHOLOGY | [address] | | | + + + + + | [facility] DEPARTMENT OF | [address] | [place] [address] | | | PATHOLOGY | [address] | | | + + + + + documented in this encounter Visit Diagnoses + + | Diagnosis | + + | Chronic abdominal pain Abdominal pain, unspecified site | + + | Status post bariatric surgery Bariatric surgery status | + + documented in this encounter"
--- OUTSIDE RECORDS SUMMARY | ~2019-10-17 | XMS | Encounter Summary ---
Demographics + + + | Address | [address] | | | [place] [address] | + + + | Home Phone [...] Team Providers + +------+ + | Care Skid Road Man Name | Role | Phone | [...] + + | 01/04/ | Office | [facility] | Delfina Molina, | Spondylosis with | | 2006 | Visit | Pain Center at | ANP | Myelopathy, Lumbar | | | | [facility] | | Region; Herniated | | | | [address] | | Lumbar | | | | Mailcode: CH15P | | Intervertebral Disc | | | | Center [facility] | | L4-5; Left Knee | | | | and Healing, | | Pain; Opioid | | | | Building | | Dependence, | | | | Floor [place], [place] | | Continuous ([facility]); | | | | [address] | | Migraine Headache; | | | | [phone] | | Fibromyalgia | | | | | | syndrome 729.1; | | | | | | Major Depressive | | | | | | Disorder, Recurrent | | | | | | Episode, Moderate | | | | | | ([facility]); Adjustment | | | | | | [...] Meehan is a 46 y.o. female [facility] Return Visit Chief Complaint: [...] and Independent Home Exercise Program DELFINA MOLINA [facility] Mail code CH 4P [place] [facility] and [place] [address] [facility] [address] Ailyn Foster - 01/05/20 07 1:29 [...] medication refills today? yes documented in this [facility] Plan of Treatment Not on filedocumented as [...]
--- OUTSIDE RECORDS SUMMARY | ~2019-10-17 | XMS | Encounter Summary ---
Demographics + + + | Address | [address] | | | [place] [address] | + + + | Home Phone [...] Team Providers + +------+ + | Care R D Engineer Name | Role | Phone | [...] Description | +--------+--------+ + + + | 10/03/ | Refill | Kraig Turner | Beto Meeks MD | Refill Request | | 2008 | | [facility] | [address] | | | | | [facility] | [place], [place] | | | | | Pavilion [address] | [address] | | | | | [address] | [phone] | | | | | Physician's Pavilion | | | | | | Physician's | | | | | | Pavilion [place], | | | | | | [place] [address] | | | | | | [phone] | | | +--------+--------+ + + + [...]
--- OUTSIDE RECORDS SUMMARY | ~2019-10-17 | XMS | Encounter Summary ---
Demographics + + + | Address | [address] | | | [place] [address] | + + + | Home Phone [...] Team Providers + +------+ + | Care Note Teller Name | Role | Phone | [...] + | 10/28/ | Office | Orthopaedics | Angel Morales | Muscular | | 2006 | Visit | [facility] [place] | MD Darrion,PhD [address] | Deconditioning; | | | | for Health and | [address] | Physical | | | | Healing [address] | [place], [place] | Deconditioning | | | | Ave Mailcode: | [address] | | | | | [facility] | [phone] | | | | | Health and Healing, | | | | | | [facility] | | | | | | Floor [place], [place] | | | | | | [address] | | | | | | [phone] | | | +--------+---------+ + + + [...] and neurology assessment. Angel Morales M.D., Ph.D. Curtain Drier, Surgical Web Architect Orthopedics & Cartilage Reconstruction Surgery Department of Orthopedics [email or web address] documented in this encou nter Plan of Treatment Not on filedocumented as of this encounter Visit Diagnoses + + | Diagnosis | + + | Muscular deconditioning Muscular wasting and disuse atrophy, not elsewhere classified | + + | Physical deconditioning Muscular wasting and disuse atrophy, not elsewhere classified | + + documented in this encounter"
--- OUTSIDE RECORDS SUMMARY | ~2019-10-17 | XMS | Encounter Summary ---
Demographics + + + | Address | [address] | | | [place] [address] | + + + | Home Phone [...] Providers + +------+ + | Care Travel Registered Nurse Oncology Name | Role | Phone | [...] + + | 02/25/ | Telephone | [facility] | Alanis, | Pain | | 2019 | | MEDICINE [address] [place] [address] | MD Petroan | | | | | [facility] | [address] [place] [address] | | | | | [place] [address] | [place] [address] | | | | | [phone] | [phone] | | | | | | | [...] Petrona | | | | | | [facility] [address] | | | | | | [place] [address] | | | | | | [phone] | | | | | | | | +--------+---------+ + + + | 12/20/ | Office | Audiology | Elisabet Munson MS | | | 2019 | Visit | | [facility] [address] | | | | | | [place] [address] [address] | | | | | | [place] [address] | | | | | | [phone] | | | | | | | | +--------+---------+ + + + | 12/20/ | Office | Otolaryngology | Ulysses Genao MD | | | 2019 | Visit | | [address] [facility] | | | | | | [address] [place], | | | | | | [place] [address] | | | | | | [phone] | | | | | | | | +--------+---------+ + + + documented as of this encounter Visit Diagnoses Not on filedocumented in this encounter"
--- OUTSIDE RECORDS SUMMARY | ~2019-10-17 | XMS | Encounter Summary ---
Demographics + + + | Address | [address] | | | [place] [address] | + + + | Home Phone [...] Team Providers + +------+ + | Care Neurodiagnostic Technologist Name | Role | Phone | [...] as of this encounter Progress Notes Byron, Logistic Specialist In - 01/12/2005 6:46 AM PDTClinic Date: [...] months. Chris Padgett M.D. CD / HS [id number] / [id number] / [id number] / Tdocumented in this encounter Plan of Treatment Not on filedocumented as of this encounter Visit Diagnoses Not on filedocumented in this encounter"
--- OUTSIDE RECORDS SUMMARY | ~2019-10-17 | XMS | Encounter Summary ---
Demographics + + + | Address | [address] | | | [place] [address] | + + + | Home Phone [...] Providers + +------+ + | Care Animal Sticker Name | Role | Phone | + [...] as of this encounter Progress Notes Byron, Mammography Supervisor In - 01/12/2005 6:46 AM PDTClinic Date: [...] months. Chris Padgett M.D. CD / HS [id number] / [id number] / [id number] / Tdocumented in this encounter Plan of Treatment Not on filedocumented as of this encounter Visit Diagnoses Not on filedocumented in this encounter"
--- OUTSIDE RECORDS SUMMARY | ~2019-10-17 | XMS | Encounter Summary ---
Demographics + + + | Address | [address] | | | [place] [address] | + + + | Home Phone [...] + + | 01/04/ | Telephone | [facility] | Ulysses Genao MD | Other | | 2017 | | OTOLARYNGOLOGY [address] | [address] [facility] | | | | | [address] [facility] [address] | [address] [place], | | | | | [place] | [place] [address] | | | | | [address] | [phone] | | | | | [phone] | | | +--------+ + + + [...] | | | | | [facility] [address] | | | | | | [place] [address] | | | | | | [phone] | | | | | | | | +--------+---------+ + + + | 12/20/ | Office | Audiology | Elisabet Munson MS | | | 2019 | Visit | | [facility] [address] | | | | | | [place] [address] [address] | | | | | | [place] [address] | | | | | | [phone] | | | | | | | | +--------+---------+ + + + | 12/20/ | Office | Otolaryngology | Ulysses Genao MD | | | 2019 | Visit | | [address] [facility] | | | | | | [address] [place], | | | | | | [place] [address] | | | | | | [phone] | | | | | | | | +--------+---------+ + + + documented as of this encounter Visit Diagnoses Not on filedocumented in this encounter"
--- OUTSIDE RECORDS SUMMARY | ~2019-10-17 | XMS | Encounter Summary ---
Demographics + + + | Address | [address] | | | [place] [address] | + + + | Home Phone [...] Team Providers + +------+ + | Care Territory Development Manager Name | Role | Phone [...] | | | [facility] | [place], [place] | | | | | Pav[address] | [address] | | | | | [address] | [phone] | | | | | Physician's | | | | | | Pavilion, 1st floor | | | | | | [place], [place] | | | | | | [address] | | | | | | [phone] | | | +--------+ + + + [...]
--- OUTSIDE RECORDS SUMMARY | ~2019-10-17 | XMS | Encounter Summary ---
Demographics + + + | Address | [address] | | | [place] [address] | + + + | Home Phone [...] Providers + +------+ + | Care Laboratory Equipment Installer Name | Role | Phone [...] + + | 08/23/ | Refill | [facility] | Alanis, | Medication Refill | | 2017 | | MEDICINE [address] [place] [address] | MD Petrona | | | | | [facility] | [address] [place] [address] | | | | | [place] [address] | [place] [address] | | | | | [phone] | [phone] | | | | | | | [...] | | | | | [place] [address] | | | | | | [phone] | | | | | | | | +--------+---------+ + + + | 12/20/ | Office | Audiology | Elisabet Munson MS | | | 2019 | Visit | | [facility] [address] | | | | | | [place] [address] [place] | | | | | | [place] [address] | | | | | | [phone] | | | | | | | | +--------+---------+ + + + | 12/20/ | Office | Otolaryngology | Ulysses Genao MD | | | 2020 | Visit | | [address] [facility] | | | | | | [address] [place], | | | | | | [place] [address] | | | | | | [phone] | | | | | | | | +--------+---------+ + + + documented as of this encounter Visit Diagnoses Not on filedocumented in this encounter"
--- OUTSIDE RECORDS SUMMARY | ~2019-10-17 | XMS | Encounter Summary ---
Demographics + + + | Address | [address] | | | [place] [address] | + + + | Home Phone [...] Providers + +------+ + | Care Food And Nutrition Professor Name | Role | Phone | [...] Lab findings, | | 2006 | | [place] [address] | [address] | teaching, guidance, | | | | Ave Mailcode: CH4S | [address] | and counseling | | | | [facility] | [place], [place] | | | | | and Healing, | [address] | | | | | [facility] | [phone] | | | | | [place], [place] | | | | | | [address] | | | | | | [phone] | | | +--------+ + + + [...]
--- OUTSIDE RECORDS SUMMARY | ~2019-10-17 | XMS | Encounter Summary ---
Demographics + + + | Address | [address] | | | [place] [address] | + + + | Home Phone [...] Providers + +------+ + | Care Rotary Cutter Feeder Name | Role | Phone | [...] + | 12/14/ | Refill | [facility] | Alanis, | Medication Refill | | 2018 | | MEDICINE [address] [place] [address] | MD Petrona | | | | | [facility] | [address] [place] [address] | | | | | [place] [address] | [place] [address] | | | | | [phone] | [phone] | | | | | | | [...] | | | | | [place] [address] | | | | | | [phone] | | | | | | | | +--------+---------+ + + + | 12/20/ | Office | Audiology | Elisabet Munson MS | | | 2019 | Visit | | [facility] [address] | | | | | | [place] [address] [place] | | | | | | [place] [address] | | | | | | [phone] | | | | | | | | +--------+---------+ + + + | 12/20/ | Office | Otolaryngology | Ulysses Genao MD | | | 2020 | Visit | | [address] [facility] | | | | | | [address] [place], | | | | | | [place] [address] | | | | | | [phone] | | | | | | | | +--------+---------+ + + + documented as of this encounter Visit Diagnoses Not on filedocumented in this encounter"
--- OUTSIDE RECORDS SUMMARY | ~2019-10-17 | XMS | Encounter Summary ---
Demographics + + + | Address | [address] | | | [place] [address] | + + + | Home Phone [...] Providers + +------+ + | Care Metal Door Assembler Name | Role | Phone | [...] [place] | | | | | | [place], [place] | [facility] | | | | | | [address] | [id number] | | | | | | | [place], [place] | | | | | | | [address] | | | | | | | Phone: | | | | | | | [phone] | | | | | | | Fax: | | | | | | | [phone] | +--------+--------+ + + + + Encounter Details +--------+---------+ + + + | Date | Type | Department | Care Team | Description | +--------+---------+ + + + | 06/23/ | Office | [facility] Comprehensive | Adrien Smith, | Fibromyalgia | | 2013 | Visit | Pain Center at | [address] [facility] | syndrome 729.1 | | | | [facility] | [facility] 153824 | (Primary Dx); LBP | | | | [address] | [place], [place] | (low back pain); | | | | Mailcode: CH15P | [address] | Chronic Bilateral | | | | [facility] | [phone] | Shoulder Pain; Post | | | | and Healing, | | laminectomy | | | | | | syndrome; Chronic | | | | Floor [place], [place] | | migraine | | | | [address] | | | | | | [phone] | | | +--------+---------+ + + + [...] evaluation of a patient with fibromyalgia, the [facility] Fibromyalgia clinic suggests laboratory screening [...] therapy in the management of fibromyalgia (C prisca SF et al. Karen Rheum Dis 2008;67:536 541). Recent data suggests that fibromyalgia patients may have reduced POST SECONDARY PROFESSIONAL opioid receptors (Reji is RE, et al. Decreased central mu-opioid receptor availability in fibromyalgia. J Neurosci . 27(37):84177-5, 2006Feb 24.) and there are no controlled [...] documented in our notes. ADRIEN SMITH MD Game Design Instructor, [facility] Extension Clerk, Pain Medicine Professor, Anesthesiology & Perioperative Medicine Brandon Phipps Md - 06/23/2013 2:21 PM PST [facility] Comprehensive Pain Center [...] as she has worked with him be [facility]. This visit can be in tandem with [...] before her lumbar surgeries and recently in [place]. She has short-term relief from thes e treatments. I would like her to return to see Dr. Adrien Smith to discuss these treatment options. Consult to [facility] physical therapy: A supervised physical [...] has been treated at the [facility] for back pain with the following [...] Overview Note: Surgery 05/15/08 Dr Ricky Garnett [place] JEY karlos to get operative reports Osteopenia [...] and a pain drawing which I reviewed. SYSTEM SOFTWARE PROGRAMMER Brief Pain Inventory: (ten= worst possible pain [...] knee Lumbar fusion 05/2008, ' & ' L5-Z3bqahcg with bone spur removals Appendectomy Cholecystectomy section [...] Hives Mainly in the legs Clindamycin Codeine Ujtqiio-Yzbaflbxml-Anu-Caff Balance problems Fioricet W/Codeine (Qmvavouezp-Uhtwfmdrhm-Enh-Cod) Keflex (Cephalexin) Morphine IM ( only in [facility]) made gut pain worse 08/27/06: Trial of oral MSIR caused leg swelling Penicillins Sulfa (Sulfonamide Antibiotics) Tramadol Ms. Meehan reports no side effects. The Review of Systems provided by Ms. Meehan and documented by the [facility] was reviewed. Austyn tional comments: 1. [...] evaluation of a patient with fibromyalgia, the [facility] Fibromyalgia clinic suggests laboratory screening [...] suggests that fibromyalgia patients may have reduced POST SECONDARY PROFESSIONAL opioid receptors (Xavi RE, et al. Decreased central mu-opioid receptor availability in fib romyalgia. J Neurosci. 27(37):95068-7, 2006Feb 24.) and there are no controlled [...]
--- OUTSIDE RECORDS SUMMARY | ~2019-10-17 | XMS | Encounter Summary ---
Demographics + + + | Address | [address] | | | [place] [address] | + + + | Home Phone [...] Team Providers + +------+ + | Care Turpentine Distiller Name | Role | Phone | [...] | | | | | hemorrhoid | [place], [place] | [address] [facility] | | | | | Rectal pain | [address] | [facility] | | | | | Procedures | | Rd [place], | | | | | CONSULT TO | | [place] | | | | | COLOR[place]AL | | [address] | | | | | SURGERY | | Phone: | | | | | | | [phone] | | | | | | | Fax: | | | | | | | [phone] | +--------+--------+ + + + + Encounter Details +--------+ + + + + | Date | Type | Department | Care Team | Description | +--------+ + + + + | 08/10/ | Donor Services Team Leader | [facility] | Nuris Cardenas, ANP | Internal Hemorrhoid; | | 2008 | | [place] [address] [address] | | Rectal Pain | | | | [address] | | | | | | Mailcode: [id number] | | | | | | [facility] | | | | | | [place], [place] | | | | | | [address] | | | | | | [phone] | | | +--------+ + + + [...]
--- OUTSIDE RECORDS SUMMARY | ~2019-10-17 | XMS | Encounter Summary ---
Demographics + + + | Address | [address] | | | [place] [address] | + + + | Home Phone [...] + +------+ + | Care Director Of Child Welfare Services Name | Role | Phone | [...]
--- OUTSIDE RECORDS SUMMARY | ~2019-10-17 | XMS | Encounter Summary ---
Demographics + + + | Address | [address] | | | [place] [address] | + + + | Home Phone [...] + +------+ + | Care Director Data Architecture Name | Role | Phone | + +------+ + | Petrona Thapa | PCP | | | MD | | | + +------+ + Reason for Visit + + + | Reason | Comments | + + + | Results, Imaging | outside imaging report from [facility] | + + + Encounter Details +--------+ + + + + | Date | Type | Department | Care Team | Description | +--------+ + + + + | 03/02/ | Telephone | [facility] | Alanis, | Results, Imaging | | 2019 | | MEDICINE [address] | MD Petrona | (outside imaging | | | | [address] [place] | [address] [facility] | report from St. | | | | [place] [address] | [place] [address] | [facility]) | | | | [phone] | [phone] | | | | | | | [...] | | | | | [place] [address] | | | | | | [phone] | | | | | | | | +--------+---------+ + + + | 12/20/ | Office | Audiology | Elisabet Munson MS | | | 2019 | Visit | | [facility] [address] | | | | | | [address] [place] | | | | | | [place] [address] | | | | | | [phone] | | | | | | | | +--------+---------+ + + + | 12/20/ | Office | Otolaryngology | Ulysses Genao MD | | | 2019 | Visit | | [address] [place] | | | | | | [address] [place], | | | | | | [place] [address] | | | | | | [phone] | | | | | | | | +--------+---------+ + + + documented as of this encounter Visit Diagnoses Not on filedocumented in this encounter"
--- OUTSIDE RECORDS SUMMARY | ~2019-10-17 | XMS | Encounter Summary ---
Demographics + + + | Address | [address] | | | [place] [address] | + + + | Home Phone [...] Providers + +------+ + | Care Media Professional Name | Role | Phone | [...] | | | central | [address] | HOSPITAL | | | | | origin, | [address] | [address] | | | | | unspecified | [place] | AVE | | | | | laterality | [place], [place] | [place] | | | | | Procedures | [address] | [address] | | | | | MRI Brain w | Phone: | Phone: | | | | | wo Contrast | [phone] | [phone] | | | | | [place] MRI | Fax: | Fax: | | | | | BRAIN COMBO | [phone] | [phone] | +--------+--------+ + + + + Reason [...] [address] | | | | | miguel | Petron[place] | [address] | | | | | Medicare/Nik | MD [address] | [place], | | | | | escu | [address] | [place] [address] | | | | | Procedures | [place], | Phone: | | | | | OFFICE VISIT | [place] | [phone] | | | | | REGULAR | [address] | Fax: | | | | | | Phone: | [phone] | | | | | | [phone] | | | | | | | Fax: | | | | | | | [phone] | | +--------+--------+ + + + + Encounter Details +--------+---------+ + + + | Date | Type | Department | Care Team | Description | +--------+---------+ + + + | 10/18/ | Office | [facility] | Ulysses Dsouza MD | Vertigo of central | | 2015 | Visit | OTOLARYNGOLOGY [address] | [address] | origin, unspecified | | | | [address] | [address] [place], | laterality (Primary | | | | [place], [place] | [place] [address] | Dx) | | | | [address] | [phone] | | | | | [phone] | | | +--------+---------+ + + + [...] MD - 10/18/2014 10:50 AM PDT [facility] OTOLARYNGOLOGY [address] [facility] [address] OFFICE NOTE ULYSSES DSOUZA MD Patient: BELINDA MEEHAN Admitting: MR #: [id number] LOC: PT TYPE: Adm Date: 10/18/2014 : [...] 10/18/2014 10:50:30 Transcribed on 10/18/2014 11:06:48 by [facility] job# [id number] Confirmation #: [id number] signed by Ulysses Dsouza MD at 10/18/2014 12:48 PM PDT Ulysses Dsouza MD - 10/18/2014 10:45 AM PDTSee dictation # [id number] signed by Ulysses Dsouza MD at 10/18/2014 [...] | | | | | [place] [address] | | | | | | [phone] | | | | | | | | +--------+---------+ + + + | 12/20/ | Office | Audiology | Elisabet Munson MS | | | 2019 | Visit | | [facility] [address] | | | | | | [address] [place] | | | | | | [place] [address] | | | | | | [phone] | | | | | | | | +--------+---------+ + + + | 12/20/ | Office | Otolaryngology | Ulysses Dsouza MD | | | 2019 | Visit | | [address] [facility] | | | | | | [address] [place], | | | | | | [place] [address] | | | | | | [phone] | | | | | | | [...]
--- OUTSIDE RECORDS SUMMARY | ~2019-10-17 | XMS | Encounter Summary ---
Demographics + + + | Address | [address] | | | [place] [address] | + + + | Home Phone [...] Team Providers + +------+ + | Care Sprayer Machine Name | Role | Phone | [...] + + | 03/27/ | Telephone | [facility] | Alanis, | Hip Pain | | 2016 | | MEDICINE [address] [place] [address] | MD Petrona | | | | | [facility] | [address] [place] [address] | | | | | [place] [address] | [place] [address] | | | | | [phone] | [phone] | | | | | | | [...] | | | | | [place] [address] | | | | | | [phone] | | | | | | | | +--------+---------+ + + + | 12/20/ | Office | Audiology | Elisabet Munson MS | | | 2019 | Visit | | [facility] [address] | | | | | | [place] [address] [place] | | | | | | [place] [address] | | | | | | [phone] | | | | | | | | +--------+---------+ + + + | 12/20/ | Office | Otolaryngology | Ulysses Genao MD | | | 2020 | Visit | | [address] [place] | | | | | | [address] [place], | | | | | | [place] [address] | | | | | | [phone] | | | | | | | [...]
--- OUTSIDE RECORDS SUMMARY | ~2019-10-17 | XMS | Encounter Summary ---
Demographics + + + | Address | [address] | | | [place] [address] | + + + | Home Phone [...] Providers + +------+ + | Care Consumer Loan Manager Name | Role | Phone | [...] of this encounter Progress Notes Interface, Commercial Credit Specialist In - 12/25/2005 2:07 AM PDT [id number] [place] [id number] Clinic Date: 12/05/2005 Clinic: General Surgery Clinic PHONE CONSULTATION Subjective: Belinda Meehan has been under our care with a history of gastric bypass and recurrent abdominal pain, nondiagnostic on multiple tests. She was requesting a prescription for oxycodone which will be sent to her home at [address] [place] [address]. Oxycodone 5 mg, 5 to 10 p.o. [...] Padgett in clinic. Melisa Thorne / SHARIF [id number] / [id number] / [id number] / [id number] Electronically signed by Kenisha Melton 12-24-2005 01:41:04 PM documented i n this encounter Plan of Treatment Not on filedocumented as of this encounter Visit Diagnoses Not on filedocumented in this encounter"
--- OUTSIDE RECORDS SUMMARY | ~2019-10-17 | XMS | Encounter Summary ---
Demographics + + + | Address | [address] | | | [place] [address] | + + + | Home Phone [...] Providers + +------+ + | Care Para Operator Name | Role | Phone | [...] + + | 03/10/ | Telephone | [facility] | Alanis, | Grief/ Loss | | 2019 | | MEDICINE [address] [place] [address] | MD Petrona | | | | | [facility] | [address] [place] [address] | | | | | [place] [address] | [place] [address] | | | | | [phone] | [phone] | | | | | | | [...] | | | | | [place] [address] | | | | | | [phone] | | | | | | | | +--------+---------+ + + + | 12/20/ | Office | Audiology | Elisabet Munson MS | | | 2019 | Visit | | [facility] [address] | | | | | | [address] [place] | | | | | | [place] [address] | | | | | | [phone] | | | | | | | | +--------+---------+ + + + | 12/20/ | Office | Otolaryngology | Ulysses Genao MD | | | 2020 | Visit | | [address] [place] | | | | | | [address] [place], | | | | | | [place] [address] | | | | | | [phone] | | | | | | | | +--------+---------+ + + + documented as of this encounter Visit Diagnoses Not on filedocumented in this encounter"
--- OUTSIDE RECORDS SUMMARY | ~2019-10-17 | XMS | Encounter Summary ---
Demographics + + + | Address | [address] | | | [place] [address] | + + + | Home Phone [...] Providers + +------+ + | Care Supervisor Dairy Sanitation Name | Role | Phone | + [...] | Transcriptions | + + | Interface, Cold Type Artist In - 06/05/2005 5:20 AM PST Date: | | 11/22/2003Attending Surgeon: Chris Padgett M.D.Chief Technologist(s): | | Ramon Valentine M.D.Preoperative Diagnosis:Morbid obesity.Postoperative [...] our proximal transected portion down and did azxpf-ys-jbcu stapled jejunojejunostomy | | using a single [...] to this antecolic and antegastric andperformed a tpup-td-wpaf gastrojejunostomy | | after placing a posteriorinterrupted [...] Valentine | | Syed Padgett M.D.MOOKIE / [id number] / [id number] / [id number] / [id number]: 11/22/2003T: | | 11/22/2003 | |cm to [...] transected portion down and did a | |ezxb-uz-zdvk stapled jejunojejunostomy using a single firing blue [...] antecolic and antegastric and | |performed a fyho-mh-lejz gastrojejunostomy after placing a posterior | |interrupted [...] | | | |MOOKIE / SHARIF | |[id number] / [id number] / [id number] / [id number] | | | | | + + documented in this encounter Visit Diagnoses Not on filedocumented in this encounter"
--- OUTSIDE RECORDS SUMMARY | ~2019-10-17 | XMS | Encounter Summary ---
Demographics + + + | Address | [address] | | | [place] [address] | + + + | Home Phone [...] Providers + +------+ + | Care Costume Maker Name | Role | Phone | [...] + + | 05/05/ | Telephone | [facility] | Alanis, | Incontinence | | 2018 | | MEDICINE [address] [place] [address] | MD Petrona | Supplies | | | | [facility] | [address] [place] [address] | | | | | [place] [address] | [place] [address] | | | | | [phone] | [phone] | | | | | | | [...] | | | | | [place] [address] | | | | | | [phone] | | | | | | | | +--------+---------+ + + + | 12/20/ | Office | Audiology | Elisabet Munson MS | | | 2019 | Visit | | [facility] [address] | | | | | | [address] | | | | | | [place] [address] | | | | | | [phone] | | | | | | | | +--------+---------+ + + + | 12/20/ | Office | Otolaryngology | Ulysses Genao MD | | | 2019 | Visit | | [address] [place] | | | | | | [address] [place], | | | | | | [place] [address] | | | | | | [phone] | | | | | | | [...]
--- OUTSIDE RECORDS SUMMARY | ~2019-10-17 | XMS | Encounter Summary ---
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 Fentanyl patch 25mcg/hr Q72hr 3. [place] 10/325 NTE 4 per day 4 Continue [...] weeks or sooner if needed. DELFINA MOLINA [facility] Comprehensive Pain Center Mail code CH 4P [facility] [address] [facility] [address] Tasha Can - 11/11/2006 9:29 AM PDTCMA [...]
--- OUTSIDE RECORDS SUMMARY | ~2019-10-17 | XMS | Encounter Summary ---
Demographics + + + | Address | [address] | | | [place] [address] | + + + | Home Phone [...] Team Providers + +------+ + | Care Spinning And Winding Supervisor Name | Role | Phone | [...] | | | Metabolism | bypass | [address] | [address] | | | | | Hypovitamino | [address], | Ave | | | | | sis D [address]12 | [address] | [place], [place] | | | | | nutritional | [place], [place] | [address] | | | | | deficiency | [address] | Phone: | | | | | Other | Phone: | [phone] | | | | | protein-jose manuel | [phone] | Fax: | | | | | nick | Fax: | [phone] | | | | | malnutrition | [phone] | | | | | | Weight | | | | | | | gain | | | | | | | Procedures | | | | | | | CONSULT TO | | | | | | | ENDO | | | | | | | [address] | | | | | | | [address] | | | +--------+--------+ + + + [...] | | | [facility] | [place], [place] | Metabolic syndrome X | | | | [address] | [address] | 250.80; Essential | | | | [address] | [phone] | hypertension 401.9; | | | | [facility] | | IGT (impaired | | | | Physician's | | glucose tolerance) | | | | Pavilion [place], | | | | | | [place] [address] | | | | | | [phone] | | | +--------+---------+ + + + [...] month in the pain center her at [facility], so she is hoping to find [...] Hives Mainly in the legs Clindamycin Codeine Uneudyh-Qxeylpndff-Mdd-Caff Balance problems Fioricet W/Codeine (Hozwanjocz-Dgibkugchf-Pyp-Cod) Keflex (Cephalexin) Morphine IM ( only in [facility]) made gut pain worse 08/27/06: Trial [...] U/L 41 ANION GAP 8 VITAMIN B12, [id number] pg/ml >2000 (H) HEMOGLOBIN A1C <=5.6 % [...] SERUM 15.0-85.0 pg/ml 222.9 (H) VITAMIN B12, [id number] pg/ml > 2000 HEMOGLOBIN A1C <=5.6 % [...]
--- OUTSIDE RECORDS SUMMARY | ~2019-10-17 | XMS | Encounter Summary ---
Demographics + + + | Address | [address] | | | [place] [address] | + + + | Home Phone [...] Providers + +------+ + | Care Operations Analyst Name | Role | Phone | [...] | | | i, | [address] | | | | | | [place] | TORI | | | | | MD [address] | [place] [address] | | | | | | [address] | Phone: | | | | | | [place], | [phone] | | | | | | [place] | Fax: | | | | | | [address] | [phone] | | | | | | Phone: | | | | | | | [phone] | | | | | | | Fax: | | | | | | | [phone] | | +--------+ + + + + + Encounter Details +--------+---------+ + + + | Date | Type | Department | Care Team | Description | +--------+---------+ + + + | 10/18/ | Office | [facility] | Emmy-Kamlesh, | Obesity (BMI | | 2018 | Visit | GASTROENTEROLOGY | MD Petrona | 30.0-34.9) (Primary | | | | [address] [place] | [address] [place] | Dx); Nausea; 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[place] [address]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; 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); | | | | [phone] | | Gastroesophageal | | | | | Luther Brito MD | reflux disease, | | | | | [address] | esophagitis presence | | | | | [place] | not specified | | | | | [address] | | | | | | [phone] | | | | | | | [...] 1: 24 PM PDTdocumented in this encounter Plan of [...] | | | | | [place] [address] | | | | | | [phone] | | | | | | | | +--------+---------+ + + + | 12/20/ | Office | Audiology | Elisabet Munson MS | | | 2019 | Visit | | [facility] [address] | | | | | [address] [place] | | | | | | [place] [address] | | | | | | [phone] | | | | | | | | +--------+---------+ + + + | 12/20/ | Office | Otolaryngology | Ulysses Genao MD | | | 2019 | Visit | | [address] [place] | | | | | | [address] [place], | | | | | | [place] [address] | | | | | | [phone] | | | | | | | [...]
--- OUTSIDE RECORDS SUMMARY | ~2019-10-17 | XMS | Encounter Summary ---
Demographics + + + | Address | [address] | | | [place] [address] | + + + | Home Phone [...] Team Providers + +------+ + | Care Cleaner Operator Name | Role | Phone | [...] as of this encounter Progress Notes Interface, Plant Health Manager In - 08/30/2005 2:07 AM PST [id number] GEOVANNI [place] Clinic Date: 07/24/2005 Clinic: Surgery [...] for surgery. Chris Padgett M.D. ROSA / [id number] / [id number] / [id number] / [id number] Electronically signed by Chris Padgett 08-29-2005 03:28:14 PM documented i n this encounter Plan of Treatment Not on filedocumented as of this encounter Visit Diagnoses Not on filedocumented in this encounter"
--- OUTSIDE RECORDS SUMMARY | ~2019-10-17 | XMS | Encounter Summary ---
Demographics + + + | Address | [address] | | | [place] [address] | + + + | Home Phone [...] Team Providers + +------+ + | Care Butcher Head Name | Role | Phone | + [...] as of this encounter Progress Notes Interface, Line Fixer In - 10/30/2005 2:06 AM PDT [id number] GEOVANNI [place] [id number] Clinic Date: 10/23/2005 Clinic: Ms. Meehan comes in today for followup of her abdominal CT. The CT is normal. We will follow her for abdominal pain. I will see her again in 3 months. If she has exacerbation, she can come earlier. I also gave her 30 tablets of 5 mg oxycodone for the pain. Chris Padgett M.D. CD / [id number] / [id number] / [id number] / Electronically signed by Chris Padgett 10-29-2005 10:10:39 AM documented i n this encounter Plan of Treatment Not on filedocumented as of this encounter Visit Diagnoses Not on filedocumented in this encounter"
--- OUTSIDE RECORDS SUMMARY | ~2019-10-17 | XMS | Encounter Summary ---
Demographics + + + | Address | [address] | | | [place] [address] | + + + | Home Phone [...] + +------+ + | Care Sql Server Developer Name | Role | Phone | [...] + + | 05/04/ | Refill | [facility] | Alanis, | Medication Refill | | 2016 | | MEDICINE [address] [place] [address] | MD Petrona | | | | | [facility] | [address] [place] [address] | | | | | [place] [address] | [place] [address] | | | | | [phone] | [phone] | | | | | | | [...] | | | | | [place] [address] | | | | | | [phone] | | | | | | | | +--------+---------+ + + + | 12/20/ | Office | Audiology | Elisabet Munson MS | | | 2019 | Visit | | [facility] [address] | | | | | | [place] [address] [place] | | | | | | [place] [address] | | | | | | [phone] | | | | | | | | +--------+---------+ + + + | 12/20/ | Office | Otolaryngology | Ulysses Genao MD | | | 2020 | Visit | | [address] [facility] | | | | | | [address] [place], | | | | | | [place] [address] | | | | | | [phone] | | | | | | | | +--------+---------+ + + + documented as of this encounter Visit Diagnoses Not on filedocumented in this encounter"
--- OUTSIDE RECORDS SUMMARY | ~2019-10-17 | XMS | Encounter Summary ---
Demographics + + + | Address | [address] | | | [place] [address] | + + + | Home Phone [...] Team Providers + +------+ + | Care Cargo Services Coordinator Name | Role | Phone [...] | | | [facility] | [place], [place] | | | | | [address] | [address] | | | | | [address] | [phone] | | | | | Physician's | | | | | | Pavilion, 1st floor | | | | | | [place], [place] | | | | | | [address] | | | | | | [phone] | | | +--------+ + + + [...]
--- OUTSIDE RECORDS SUMMARY | ~2019-10-17 | XMS | Encounter Summary ---
Demographics + + + | Address | [address] | | | [place] [address] | + + + | Home Phone [...] + +------+ + | Care Technology Sales Consultant Name | Role | Phone [...] as of this encounter Progress Notes Interface, Health Information Manager In - 01/12/2005 12:26 AM PDT [id number] [facility] Date: 07/25/2004 Clinic: Rheumatology Bleinda Meehan is a 44-year-old woman who I [...] weight that she has lost. At the [employer], a study was presented [...] 6 months. Caitlin Rivera M.S., F.N.P. / [id number] / [id number] / [id number] / [id number] cc: Pedrito Gutierrez M.D. [address] [place] [address] Electronically signed by Caitlin Rivera 07-31-2004 12:02:37 PM documented i n this encounter Plan of Treatment Not on filedocumented as of this encounter Visit Diagnoses Not on filedocumented in this encounter"
--- OUTSIDE RECORDS SUMMARY | ~2019-10-17 | XMS | Encounter Summary ---
Demographics + + + | Address | [address] | | | [place] [address] | + + + | Home Phone [...] Team Providers + +------+ + | Care Insulation And Flooring Assembler Name | Role | Phone | [...] + + | 06/30/ | Telephone | [facility] | Alanis, | Other | | 2019 | | MEDICINE [address] [place] [address] | MD Petrona | | | | | [facility] | [address] [place] [address] | | | | | [place] [address] | [place] [address] | | | | | [phone] | [phone] | | | | | | | [...] Petrona | | | | | | [facility] [address] | | | | | | [place] [address] | | | | | | [phone] | | | | | | | | +--------+---------+ + + + | 12/20/ | Office | Audiology | Elisabet Munson MS | | | 2019 | Visit | | [facility] [address] | | | | | | [place] [address] [address] | | | | | | [place] [address] | | | | | | [phone] | | | | | | | | +--------+---------+ + + + | 12/20/ | Office | Otolaryngology | Ulysses Genao MD | | | 2019 | Visit | | [address] [facility] | | | | | | [address] [place], | | | | | | [place] [address] | | | | | | [phone] | | | | | | | [...]
--- OUTSIDE RECORDS SUMMARY | ~2019-10-17 | XMS | Encounter Summary ---
Demographics + + + | Address | [address] | | | [place] [address] | + + + | Home Phone [...] Providers + +------+ + | Care Computer Technician Name | Role | Phone | + +------+ + | Pedrito Gutierrez MD | PCP | | + +------+ + Encounter Details +--------+ + + + + | Date | Type | Department | Care Team | Description | +--------+ + + + + | 08/22/ | Hospital | Radiology/Imaging | | | | 2008 | Encounter | [facility] at [facility] [address] | | | | | | Mychal Kvo[address] Mailcode: | | | | | | CH3G [facility] | | | | | | Health and Healing, | | | | | | [place] [address], | | | | | | Floor [place], [place] | | | | | | [address] | | | | | | [phone] | | | +--------+ + + + [...]
--- OUTSIDE RECORDS SUMMARY | ~2019-10-17 | XMS | Encounter Summary ---
Demographics + + + | Address | [address] | | | [place] [address] | + + + | Home Phone [...] Providers + +------+ + | Care Hair Salon Manager Name | Role | Phone | [...] + + | 09/25/ | Telephone | [facility] | Alanis, | Other | | 2018 | | MEDICINE [address] [place] [address] | MD Petrona | | | | | [facility] | [address] [place] [address] | | | | | [place] [address] | [place] [address] | | | | | [phone] | [phone] | | | | | | | [...] | | | | | [facility] [address] | | | | | | [place] [address] | | | | | | [phone] | | | | | | | | +--------+---------+ + + + | 12/20/ | Office | Audiology | Elisabet Munson MS | | | 2019 | Visit | | [facility] [address] | | | | | | [place] [address] [address] | | | | | | [place] [address] | | | | | | [phone] | | | | | | | | +--------+---------+ + + + | 12/20/ | Office | Otolaryngology | Ulysses Genao MD | | | 2020 | Visit | | [address] [facility] | | | | | | [address] [place], | | | | | | [place] [address] | | | | | | [phone] | | | | | | | | +--------+---------+ + + + documented as of this encounter Visit Diagnoses + + | Diagnosis | + + | OLIVER (obstructive sleep apnea) - Primary Obstructive sleep apnea (adult) (pediatric) | + + documented in this encounter"
--- OUTSIDE RECORDS SUMMARY | ~2019-10-17 | XMS | Encounter Summary ---
Demographics + + + | Address | [address] | | | [place] [address] | + + + | Home Phone [...] Providers + +------+ + | Care Exchange Operator Name | Role | Phone | [...] as of this encounter Progress Notes Interface, Telecommunications Facility Examiner In - 08/19/2005 2:05 AM PST [id number] [facility] Date: 07/24/2005 Clinic: Hematology [...] full and complete summary. Lukasz Sellers M.D. still worker helper NANCY / SHARIF [id number] / [id number] / [id number] / [id number] cc: Pedrito Gutierrez M.D. [address] [place] [address] Electronically signed by Lukasz Sellers 08-18-2005 01:28:24 PM documented i n this encounter Plan of Treatment Not on filedocumented as of this encounter Visit Diagnoses Not on filedocumented in this encounter"
--- OUTSIDE RECORDS SUMMARY | ~2019-10-17 | XMS | Encounter Summary ---
Demographics + + + | Address | [address] | | | [place] [address] | + + + | Home Phone [...] Providers + +------+ + | Care Wet Milling Wheel Operator Name | Role | Phone | [...] [address] | | | | | [place] | [place], [place] | | | | | [address] | [address] | | | | | [address] | [phone] | | | | | Physician's Pavilion | | | | | | Physician's | | | | | | Pavilion [place], | | | | | | [place] [address] | | | | | | [phone] | | | +--------+--------+ + + + [...]
--- OUTSIDE RECORDS SUMMARY | ~2019-10-17 | XMS | Encounter Summary ---
Demographics + + + | Address | [address] | | | [place] [address] | + + + | Home Phone [...] Team Providers + +------+ + | Care Fiberline Supervisor Name | Role | Phone | [...] | | | | | | | [id number] | | | | | | | [address] | | | | | | | Pavilion | | | | | | | [place], [place] | | | | | | | [address] | | | | | | | Phone: | | | | | | | [phone] | | | | | | | Fax: | | | | | | | [phone] | +--------+--------+ + + + + Encounter Details +--------+ + + + + | Date | Type | Department | Care Team | Description | +--------+ + + + + | 02/22/ | Hospital | [facility] [address] | Hai Hoyos, | | | 2008 | Encounter | [address] | | | | | | [address] [place] | | | | | | [place], | | | | | | [place] [address] | | | | | | [phone] | | | +--------+ + + + [...] Brief Hospital Course: Patient was admitted to [facility] short stay surgery. Patient was taken [...] business hours at or page the orthopedist salesperson men's and boys' clothing after regular business hours at [phone]. If you have any of the following: [...] at . Follow Up Tests: (Tests at [facility] must be entered into RetailMLS) none Condition On Discharge: stable Vital Signs [...] Brief Hospital Course: Patient was admitted to [facility] short stay surgery. Patient was taken [...] business hours at or page the orthopedist salesperson men's and boys' clothing after regular business hours at [phone]. If you have any of the following: [...] appointment, please call our scheduling line at [phone]. Follow Up Tests: (Tests at [facility] must be entered into Epic) none [...] + + + + | [facility] | [address] | [place] [address] | | | PATHOLOGY | [address] [...] + + + + | [facility] | [address] | [place] [address] | | | PATHOLOGY | [address] [...] | | | | | performed at [place] | | | | | | [facility] | | | | | | Laboratory. | | | | + + + + + + + + | Specimen | + + | | + + + + + + + | Performing | Address | City/State/Zipcode | Phone Number | | Organization | | | | + + + + + | [facility] | [address] | [place] [address] | | | PATHOLOGY | [address] [...] + + + + | [facility] | [address] | [place] [address] | | | PATHOLOGY | [address] [...] | | | | | performed at [place] | | | | | | [facility] | | | | | | Laboratory | | | | + + + + + + + + | Specimen | + + | | + + + + + + + | Performing | Address | City/State/Zipcode | Phone Number | | Organization | | | | + + + + + | [facility] | [address] | [place] [address] | | | PATHOLOGY | [address] [...] + + + + | [facility] | [address] | [place] [address] | | | PATHOLOGY | [address] [...] Lab) | | | | | | [facility] | | | | | | [address] [address] | | | | | [address] | | | | | | [place] [address] | | | | + + + + + + + + | Specimen | + + | | + + + + + + + | Performing | Address | City/State/Zipcode | Phone Number | | Organization | | | | + + + + + | [facility] | [address] | [place] [address] | | | PATHOLOGY | [address] [...] Performed At | + + + | [id number] | | | [id number] | | | [facility] [id number] | | | Date: 02/22/2009 Attending Surgeon: | | | Hai Hoyos MD Materials Buyer(s): | | | Shantel Whipple Preoperative | | | Diagnosis(es): Left symptomatic scapula lesion. Postoperative | | | Diagnosis(es): Left symptomatic scapula lesion. Procedures | | | Performed: 1. Curettage and bone grafting of the left scapular | | | lesion. 2. Open biopsy, left scapular lesion. | | | Donna Clancy served as my costumer assistant because no other qualified | | [...] | aforementioned. MD ARTIS Wei / SHARIF [id number] / | | | [id number] / [id number] / | | + + + + + | Procedure Note | + + | Hai Hoyos MD - 02/22/2009 12:00 AM PDT [id number] | | [id number] [facility] | | [id number] Date: 02/22/2009 Attending Surgeon: Hai | | MD Romain Materials Buyer(s): Raj Whipple. Preoperative | | Diagnosis(es):Left symptomatic scapula lesion. Postoperative Diagnosis(es):Left | | symptomatic scapula lesion. Procedures Performed:1. Curettage and bone grafting of | | the left scapular lesion.2. Open biopsy, left scapular lesion. Donna Clancy | | served as my costumer assistant because no other qualified help wasavailable. [...] plan is as aforementioned. CHARU Wei / [id number] / [id number] / [id number] /D: | | 02/22/2009T: 02/22/2009 | | [...] |Hai Hoyos MD | |ZA / | |[id number] / [id number] / [id number] / | | | | | | [...] | | | | | | Yasmin Agrueta | | | | | | Luis [...] | + + + + + | [facility] DEPARTMENT OF | [address] | [place] [address] | | | PATHOLOGY | [address] | | | + + + + + | [facility] DEPARTMENT OF | [facility] | [place] [address] | | | PATHOLOGY | [address] [...]
--- OUTSIDE RECORDS SUMMARY | ~2019-10-17 | XMS | Encounter Summary ---
Demographics + + + | Address | [address] | | | [place] [address] | + + + | Home Phone [...] Providers + +------+ + | Care Client Service Manager Name | Role | Phone [...] + | 03/03/ | Telephone | [facility] | Alanis, | Medication Question | | 2017 | | MEDICINE [address] [place] [address] | MD Petrona | | | | | [facility] | [address] [place] [address] | | | | | [place] [address] | [place] [address] | | | | | [phone] | [phone] | | | | | | | [...] | | | | | [place] [address] | | | | | | [phone] | | | | | | | | +--------+---------+ + + + | 12/20/ | Office | Audiology | Elisabet Munson MS | | | 2019 | Visit | | [facility] [address] | | | | | | [address] [place] | | | | | | [place] [address] | | | | | | [phone] | | | | | | | | +--------+---------+ + + + | 12/20/ | Office | Otolaryngology | Ulysses Genao MD | | | 2020 | Visit | | [address] [facility] | | | | | | [address] [place], | | | | | | [place] [address] | | | | | | [phone] | | | | | | | | +--------+---------+ + + + documented as of this encounter Visit Diagnoses Not on filedocumented in this encounter"
--- OUTSIDE RECORDS SUMMARY | ~2019-10-17 | XMS | Encounter Summary ---
Demographics + + + | Address | [address] | | | [place] [address] | + + + | Home Phone [...] Providers + +------+ + | Care Line Supervisor Name | Role | Phone | [...] + + | 05/18/ | Telephone | [facility] | Alanis, | Referral | | 2017 | | MEDICINE [address] [place] [address] | MD Petrona | | | | | [facility] | [address] [place] [address] | | | | | [place] [address] | [place] [address] | | | | | [phone] | [phone] | | | | | | | [...] | | | | | [place] [address] | | | | | | [phone] | | | | | | | | +--------+---------+ + + + | 12/20/ | Office | Audiology | Elisabet Munson MS | | | 2019 | Visit | | [facility] [address] | | | | | | [address] [place] [address] [place] | | | | | | [place] [address] | | | | | | [phone] | | | | | | | | +--------+---------+ + + + | 12/20/ | Office | Otolaryngology | Ulysses Genao MD | | | 2020 | Visit | | [address] [facility] | | | | | | [address] [place], | | | | | | [place] [address] | | | | | | [phone] | | | | | | | | +--------+---------+ + + + documented as of this encounter Visit Diagnoses Not on filedocumented in this encounter"
--- OUTSIDE RECORDS SUMMARY | ~2019-10-17 | XMS | Encounter Summary ---
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 2. Continue with [place] 10/325 1 tablet as needed for activity [...] Belinda Meehan is a 46 y.o. female [facility] Pain Center Return Visit Chief Complaint: [...] able to see Dr Gutierrez yet b la does have and appointment next week to [...] ev eduardo 72 hours. 2. Continue with [place] 10/325 1 tablet as needed for activity related pain NTE 3 per day. 3. Continue with pain psychology and physical therapy. 4. Follow up in two weeks to review medication management 5. Keep neurology evaluation as able with insurance aurthorization.- migraine headache eval uation 6. PCP to assess LE edema/swelling. DELFINA MOLINA [facility] Mail code CH 4P [facility] and [address] [address] Ailyn Foster 09/10/19 07 12:20 [...]
--- OUTSIDE RECORDS SUMMARY | ~2019-10-17 | XMS | Encounter Summary ---
Demographics + + + | Address | [address] | | | [place] [address] | + + + | Home Phone [...] Team Providers + +------+ + | Care Customs And Border Protection Officer Name | Role | Phone | [...] Description | +--------+--------+ + + + | 08/12/ | Refill | [facility] | Alanis, | Medication Refill | | 2017 | | MEDICINE [address] [place] [address] | MD Petrona | | | | | [facility] | [address] [place] [address] | | | | | [place] [address] | [place] [address] | | | | | [phone] | [phone] | | | | | | | [...] | | | | | [place] [address] | | | | | | [phone] | | | | | | | | +--------+---------+ + + + | 12/20/ | Office | Audiology | Elisabet Munson MS | | | 2019 | Visit | | [facility] [address] | | | | | | [place] [address] [place] | | | | | | [place] [address] | | | | | | [phone] | | | | | | | | +--------+---------+ + + + | 12/20/ | Office | Otolaryngology | Ulysses Genao MD | | | 2020 | Visit | | [address] [facility] | | | | | | [address] [place], | | | | | | [place] [address] | | | | | | [phone] | | | | | | | | +--------+---------+ + + + documented as of this encounter Visit Diagnoses Not on filedocumented in this encounter"
--- OUTSIDE RECORDS SUMMARY | ~2019-10-17 | XMS | Encounter Summary ---
Demographics + + + | Address | [address] | | | [place] [address] | + + + | Home Phone [...] Providers + +------+ + | Care Mixer Driver Name | Role | Phone | [...] | 2006 | Visit | [facility] | [address] | Myelopathy, Lumbar | | | | [place] [address] | [address] [place], | Region; Neck Pain; | | | | [address] Mailcode: | [place] [address] | Herniated Lumbar | | | | CH15P [facility] | | Intervertebral Disc | | | | Health and Healing, | | L4-5; Fibromyalgia | | | | | | syndrome 729.1 | | | | Floor [place], [place] | | | | | | [address] | | | | | | [phone] | | | +--------+---------+ + + + [...] August 12, 2006 Patient: Belinda Molly Meehan, [id number], 1960 I agree with the proposed Physical Therapy Treatment Plan. Provider: DELFINA MOLINA [facility] Nathalia Keyes - 007 12:04 PM PST Physical Therapy Medicare Progress Note Date: 08/12/2006 Belinda Meehan [id number]. 1960 Start of Care: 06/23/2006 Referring Provider: [...] | + + +--------+ + + | [facility] | Procedures | Routin | Spondylosis [...] | + + +--------+ + + | [facility] | Procedures | Routin | Spondylosis [...]
--- OUTSIDE RECORDS SUMMARY | ~2019-10-17 | XMS | Encounter Summary ---
Demographics + + + | Address | [address] | | | [place] [address] | + + + | Home Phone [...] Team Providers + +------+ + | Care Plumber'S Assistant Name | Role | Phone | [...] + + | 01/11/ | Office | [facility] Comprehensive | Delfina Molina, | Left Knee Pain; DJD | | 2006 | Visit | Pain Center at | ANP | (Degenerative Joint | | | | [facility] | | Disease) of Knee; | | | | [address] | | Herniated Lumbar | | | | Mailcode: CH15P | | Intervertebral Disc | | | | [facility] | | L4-5; Spondylosis | | | | and Healing, | | with Myelopathy, | | | | Building | | Lumbar Region; | | | | Floor [place], [place] | | Fibromyalgia | | | | [address] | | syndrome 729.1; | | | | [phone] | | Encounter for | | | [...] Belinda Meehan is a 46 y.o. female [facility] Comprehensive Pain Center Return [...] facia pain working with exercises and her bagel maker. Belinda Meehan is here today for a [...] until surgery pending 02/13 12/19. DELFINA MOLINA [facility] Pain Center Mail code CH 4P [facility] and [address] [address] Ailyn Foster - 01/12/20 07 [...]
--- OUTSIDE RECORDS SUMMARY | ~2019-10-17 | XMS | Encounter Summary ---
Demographics + + + | Address | [address] | | | [place] [address] | + + + | Home Phone [...] Providers + +------+ + | Care Production Control Coordinator Name | Role | Phone | [...] as of this encounter Progress Notes Interface, Method Consultant In - 01/11/2005 11:07 PM PDT Referred [...] is being seen by an orthopedist in [place]. She brings her brace today which she states is going well. The patient, however, yesterday awoke with neck stiffness and pain with spasming type pains in the area of her neck. She was seen in the emergency room last night in [place] for injection after a migraine. She states [...] Jesus M.D. Domingo Lozoya M.D. Gokul P [phone] cc: Pedrito Gutierrez MD [address] [place], [place] [email or web address] signed by Interface, Method Consultant In at 5 11:07 PM PDTdocumented in this encounter Plan of Treatment Not on filedocumented as of this encounter Visit Diagnoses Not on filedocumented in this encounter"
--- OUTSIDE RECORDS SUMMARY | ~2019-10-17 | XMS | Encounter Summary ---
Demographics + + + | Address | [address] | | | [place] [address] | + + + | Home Phone [...] Providers + +------+ + | Care Residential Coordinator Name | Role | Phone | [...] + + | 09/15/ | Office | [facility] | [place], | Pain in right lower | | 2019 | Visit | MEDICINE [address] | MD Petrona | leg (Primary Dx); | | | | Street [place] | [address] [facility] | Fall in bathtub, | | | | [place] [address] | [place] [address] | initial encounter; | | | | [phone] | [phone] | Other osteoporosis | | | | [...] Common migraine COPD (chronic obstructive pulmonary disease) ([facility]) Depression Diarrhea Dumping syndrome Fall at home Fatigue fracture of vertebra Fibromyalgia Full dentures GERD (gastroesophageal reflux disease) Glaucoma Hyperparathyroidism ([facility]) Hypothyroidism IBS (irritable bowel syndrome) Idiopathic scoliosis Leg edema Low back pain Lumbar postlaminectomy syndrome Lumbar radiculopathy primarily right 01/04/2015 Meniere syndrome Migraine with aura Migraines Muscle cramping Muscle spasm Myalgia Nausea Nonalcoholic hepatosteatosis Obesity Opioid dependence ([facility]) Orthostatic hypotension OLIVER (obstructive sleep apnea) Osteoarthritis, generalized Osteopenia Osteoporosis Palpitations Peripheral neuropathy Rheumatoid arthritis ([facility]) Right arm [...] Procedure: COLONOSCOPY; Surgeon: Luther Brito MD; Location: [facility] DILATION AND CURETTAGE OF UTERUS ELBOW SURGERY FINGER TRIGGER RELEASE 2002 FINGER TRIGGER RELEASE 2009 GASTRIC BYPASS SURGERY 2004 HYSTERECTOMY 05/14/1980 JOINT REPLACEMENT Bilateral 2007 2008 KNEE ARTHROSCOPY 2005 LAPAROSCOPY 01/27/2015 LAPAROTOMY 2008 ROTATOR CUFF REPAIR 2005 SPINE SURGERY TONSILLECTOMY 1964 UPPER GASTROINTESTINAL ENDOSCOPY N/A 12/18/2017 Procedure: EGD; Surgeon: Luther Brito MD; Location: [facility] CURRENT MEDICATIONS Current [...] Days Morelia Thapa MD 1,000 mcg at 06/17/18 1132 ALLERGIES Allergies Allergen Reactions Ensure Diarrhea Food Diarrhea Lactose Codeine Sulfate Nausea Only Levofloxacin Hives, Itching and Rash Butalbital Ropinirole Amitriptyline Hcl Other (See Comments) Confused and questionable for seizures Okiflmqwgx-Mrzx-Pvfdhdbr Hives and Rash Cephalexin Hives Ciprofloxacin Hives [...] Note: Parts of this documentwere created using [employer] speech recognition software. As a r esult, there may be unintended word spelling errors. Every attempt was made to correct the dictation. doshantelle colin in this encounter Plan of Treatment +--------+---------+ + + + | Date | Type | Specialty | Care Team | Description | +--------+---------+ + + + | 11/14/ | Office | Internal Medicine | Alanis, | | | 2019 | Visit | | MD Petrona | | | | | | [address] [facility] | | | | | | [place] [address] | | | | | | [phone] | | | | | | | | +--------+---------+ + + + | 12/20/ | Office | Audiology | Elisabet Munson MS | | 2019 | Visit | | [facility] [address] | | | | | | [address] [place] | | | | | | [place] [address] | | | | | | [phone] | | | | | | | | +--------+---------+ + + + | 12/20/ | Office | Otolaryngology | Ulysses Genao MD | | | 2019 | Visit | | [address] | | | | | | [address] [place], | | | | | | [place] [address] | | | | | | [phone] | | | | | | | [...] | | | | First dose on [facility] 10/15/17 at 1215 | | [...]
--- OUTSIDE RECORDS SUMMARY | ~2019-10-17 | XMS | Encounter Summary ---
Demographics + + + | Address | [address] | | | [place] [address] | + + + | Home Phone [...] + +------+ + | Care Director Of Training Name | Role | Phone | + [...] | Pain | Diagnoses | [place] | Hand Tapper Chh1 | | | | Management | | [place], | [address] | | | | | Radiculopath | Sulaiman G, | Ave | | | | | y, cervical | MD [address] | Mailcode: | | | | | region Low | [address] | [facility] | | | | | back pain | [place], | for Health | | | | | Fibromyalgia | [place] | and Healing, | | | | | Meniere's | [address] | Building | | | | | disease, | Phone: | 1,[address]th Floor | | | | | bilateral | [phone] | [place], [place] | | | | | Rheumatoid | Fax: | [address] | | | | | arthritis, | [phone] | Phone: | | | | | unspecified | | [phone] | | | | | | | Fax: | | | | | Postlaminect | | [phone] | | | | | toya | [...] + + | 02/05/ | Office | [facility] Comprehensive | Shalonda Garcia, | Post laminectomy | | 2017 | Visit | Pain Center at | SOLAR PROJECT COORDINATION SPECIALIST [address] | syndrome (Primary | | | | [facility] [place], [place] | Dx); Intractable | | | | [address] | [address] | chronic migraine | | | | Mailcode: CH15P | [phone] | without aura and | | | | [place]ina for [facility] | | with status | | | | and Healing, | | migrainosus; | | | | | | Fibromyalgia | | | | Floor [place], [place] | | | | | | [address] | | | | | | [phone] | | | +--------+---------+ + + + [...] in this encounter Patient Instructions Patient Instructions Kathleen Riley - 02/05/2017 1:35 PM Gini, It was good to meet you today. [...] Discuss with your PCP, a referral to [facility] for discussion regarding spinal cord stimulator Shalonda Mustafa DNP, SOLAR PROJECT COORDINATION SPECIALIST-C Adult Pain Service /[facility] [place] [address] documented in this encounter Progress Notes Amie Jing - 02/05/2017 1:35 PM PDT Date: 02/05/2017 was referred for pain management consultation by Sulaiman Whitlock MD [address] [place] [address] Reason for consult: cervical radiculopathy, low back [...] by her primary care pr magdy in [facility]. This provider is currently in the process of re-opening a new clinic and may be available to see patients next month. She reports that this provider d oes not wish to continue prescribing her pain medication and has instructed her to find anot her provided to take over her pain prescriptions. She was previously a patient at a pain cli brigida in [facility], however her insurance changed and she no longer has coverage at this clinic. 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 She feels she is at the point where is not able to determine which medications are hel pful in improving her pain. She endorses incontinence symptoms. She reports there are "days I just want to " because her pain is so bad. 's treatment for this pain complaint has included: MEDICATIONS: - Gabapentin - [place] - Butran - Cymbalta - Fentanyl Patches NON-MEDICATION THERAPIES: - Physical Therapy - Exercise - Heat/Ice - Pool Therapy - Brace/Support - TENS INTERVENTIONS: - Spinal surgery x3, Laminectomy unknown level - Epidural Steroid Injections - Trigger Point Injections lives in a single family home in [place], [place]. She is not currently working , she receives disability. As a result of her pain, notes multiple changes in her life, including limiting her ability to perform routine tasks. 's goals from today's appointment include: consultation only (advice only to you and your primary care physician), counseling, drug treatment, help in coping with the pain a nd stress management. 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 Headache HTN (hypertension) Hypothyroidism 11/11/2006 IBS (irritable bowel syndrome) Internal hemorrhoid Kidney stone Major depressive disorder, recurrent episode, moderate ([facility]) 07/31/2006 Metabolic syndrome X 250.80 Metabolic syndrome X 250.80 Optic nerve hemorrhage left eye Other general symptoms Pneumonia PUD (peptic ulcer disease) RA (rheumatoid arthritis) ([facility]) Radiculitis, lumbosacral 03/03/2008 Reduced vision Scoliosis Sleep apnea Spondylosis with myelopathy, lumbar region 07/02/2006 Vertebral fracture T7,8,9 Xray T spine 2003 Past Surgical History Procedure Laterality Date Salpingo-oophorectomy Colonoscopy 03/2006 Tonsillectomy Pr d&c after delivery Pr inject trigger point, 1 or 2 Knee replacement 02/2007 Left knee Knee replacement 08/2007 right knee Lumbar fusion 05/2008, '11 & '12 L5-S4ijnpyp with bone spur removals Appendectomy Cholecystectomy section [...] Hives Mainly in the legs Clindamycin Codeine Qxkosgi-Ephddguebv-Iyq-Caff Balance problems Fioricet W/Codeine [Eskpvbnipo-Aoahodokuj-Dbl-Cod] Keflex [Cephalexin] Ketorolac Unknown Morphine IM ( only in [facility]) made gut pain worse 08/27/06: Trial [...] over entire body Manual tender point survey: 18 manual tender points positive Neurological: She is [...] and summary of old medical records (source: [email or web address]), as summarized in the body of the [...] by her primary care pr magdy in [facility]. She reports that this provider does not [...] Whitlock MD may consider a referral to [facility] for discu ssion regarding spinal cord stimulator -No follow up needed at this time 02/05/2017: I, Kathleen Riley am functioning as a medical social consultant for MEGAN Dutta DNP I have reviewed and verified the above scribed note of my visit with this patient as record ed by Kathleen Riley. Shalonda Mustafa DNP, FNP-C Adult Pain Service /[facility] [address] [place] [address] Maris Costa MA - 02/05/2017 1:35 PM PDT Review [...]
--- OUTSIDE RECORDS SUMMARY | ~2019-10-17 | XMS | Encounter Summary ---
Demographics + + + | Address | [address] | | | [place] [address] | + + + | Home Phone [...] Team Providers + +------+ + | Care Sheriff'S Sergeant Name | Role | Phone | [...] as of this encounter Progress Notes Interface, Antitank Assault Gunner In - 09/13/2005 2:06 AM PST [id number] GEOVANNI [facility] Date: 01/02/2005 Clinic: Endocrinology [...] months. Beto Meeks M.D. PD / HS [id number] / [id number] / [id number] / [id number] cc: Chris Padgett M.D. Electronically signed by Beto Meeks 09-12-2005 02:22:56 AM documented i n this encounter Plan of Treatment Not on filedocumented as of this encounter Visit Diagnoses Not on filedocumented in this encounter"
--- OUTSIDE RECORDS SUMMARY | ~2019-10-17 | XMS | Encounter Summary ---
Demographics + + + | Address | [address] | | | [place] [address] | + + + | Home Phone [...] Team Providers + +------+ + | Care Psychiatry Adult Physician Name | Role | Phone | [...] + | 06/11/ | Refill | [facility] | Alanis, | Medication Refill | | 2017 | | MEDICINE [address] [place] [address] | MD [place]ron[place] | | | | | [facility] | [address] [place] [address] | | | | | [place] [address] | [place] [address] | | | | | [phone] | [phone] | | | | | | | [...] | | | | | [place] [address] | | | | | | [phone] | | | | | | | | +--------+---------+ + + + | 12/20/ | Office | Audiology | Elisabet Munson MS | | | 2019 | Visit | | [facility] [address] | | | | | | [place] [address] [place] | | | | | | [place] [address] | | | | | | [phone] | | | | | | | | +--------+---------+ + + + | 12/20/ | Office | Otolaryngology | Ulysses Genao MD | | | 2020 | Visit | | [address] [facility] | | | | | | [address] [place], | | | | | | [place] [address] | | | | | | [phone] | | | | | | | | +--------+---------+ + + + documented as of this encounter Visit Diagnoses Not on filedocumented in this encounter"
--- OUTSIDE RECORDS SUMMARY | ~2019-10-17 | XMS | Encounter Summary ---
Demographics + + + | Address | [address] | | | [place] [address] | + + + | Home Phone [...] Providers + +------+ + | Care Audiology Doctor Name | Role | Phone | [...] | at [place] | [facility] | | | | | [address] | [place] [address] | | | | | [address] [place] | | | | | | [place], 2nd floor | | | | | | [place], [place] | | | | | | [address] | | | | | | [phone] | | | +--------+ + + + [...]
--- OUTSIDE RECORDS SUMMARY | ~2019-10-17 | XMS | Encounter Summary ---
Demographics + + + | Address | [address] | | | [place] [address] | + + + | Home Phone [...] Team Providers + +------+ + | Care Terrazzo Worker Apprentice Name | Role | Phone | [...] | | | | | [address] | [address] [place], [place] | | | | | [place], [place] | [address] | | | | | [address] | | | | | | [phone] | | | +--------+ + + + [...] Electronic Medical Record (EMR) system used by [facility] will be updated. The category used to file the infusion therapy plan currently ordered for this patient is to be discontinued. The changes to the order category within the EMR are administrative and in no way affect t he care of the patient. This encounter was created in the EMR to review the current orders for this patient and natalie jennifer the necessary changes to insure continuity of care. Please contact the [facility] at with any [...] | | | | | [place] [address] | | | | | | [phone] | | | | | | | | +--------+---------+ + + + | 12/20/ | Office | Audiology | Elisabet Munson MS | | 2019 | Visit | | [facility] | | | | | [facility] [address] | | | | | | [place] [address] | | | | | | [phone] | | | | | | | | +--------+---------+ + + + | 12/20/ | Office | Otolaryngology | Ulysses Genoa MD | | | 2019 | Visit | | [address] [facility] | | | | | | [address] [place], | | | | | | [place] [address] | | | | | | [phone] | | | | | | | | +--------+---------+ + + + documented as of this encounter Visit Diagnoses Not on filedocumented in this encounter"
--- OUTSIDE RECORDS SUMMARY | ~2019-10-17 | XMS | Encounter Summary ---
Demographics + + + | Address | [address] | | | [place] [address] | + + + | Home Phone [...] Providers + +------+ + | Care Supervisor Beam Department Name | Role | Phone | + [...] + + | 08/19/ | Telephone | [facility] | Alanis, | Cold-like Symptoms | | 2018 | | MEDICINE [address] [place] [address] | MD [place]rona | | | | | [facility] | [address] [place] [address] | | | | | [place] [address] | [place] [address] | | | | | [phone] | [phone] | | | | | | | [...] | | | | | [place] [address] | | | | | | [phone] | | | | | | | | +--------+---------+ + + + | 12/20/ | Office | Audiology | Elisabet Munson MS | | | 2019 | Visit | | [facility] [address] | | | | | | [place] [address] [place] | | | | | | [place] [address] | | | | | | [phone] | | | | | | | | +--------+---------+ + + + | 12/20/ | Office | Otolaryngology | Ulysses Genao MD | | | 2020 | Visit | | [address] [facility] | | | | | | [address] [place], | | | | | | [place] [address] | | | | | | [phone] | | | | | | | | +--------+---------+ + + + documented as of this encounter Visit Diagnoses Not on filedocumented in this encounter"
--- OUTSIDE RECORDS SUMMARY | ~2019-10-17 | XMS | Encounter Summary ---
Demographics + + + | Address | [address] | | | [place] [address] | + + + | Home Phone [...] Team Providers + +------+ + | Care Logistics Lead Name | Role | Phone | [...] as of this encounter Progress Notes Interface, Silverware Etcher In - 10/03/2006 2:33 AM PDT [id number] GEOVANNI SKELTON J [id number] Clinic Date: 09/14/2006 Clinic: Rheumatology Belinda Meehan [...] every 3 days changed; Trileptal 225 mg; [place] 10/325; and Actonel. Objective: Weight is 214, [...] to this. Caitlin Rivera M.S., F.N.P. / [id number] / [id number] / [id number] / [id number] cc: Pedrito Gutierrez M.D. [address] [facility] [address] [place], [place] [address] [facility] Electronically signed by Caitlin Rivera 10-02-2006 09:24:29 AM documented in this encounter Plan of Treatment Not on filedocumented as of this encounter Visit Diagnoses Not on filedocumented in this encounter"
--- OUTSIDE RECORDS SUMMARY | ~2019-10-17 | XMS | Encounter Summary ---
Demographics + + + | Address | [address] | | | [place] [address] | + + + | Home Phone [...] Providers + +------+ + | Care Chief Of Pediatric Urology Name | Role | Phone | + [...] + + | 05/29/ | Office | [facility] Comprehensive | Delfina Molina, | Chronic Abdominal | | 2005 | Visit | Pain Center at | ANP | Pain; Cervical Pain; | | | | [facility] | | Joint pain 719.40; | | | | [address] | | Depression | | | | Mailcode: CH15P | | | | | | [facility] | | | | | | and Healing, | | | | | | Building | | | | | | Floor [place], [place] | | | | | | [address] | | | | | | [phone] | | | +--------+---------+ + + + [...] a Physical Therapy evaluation here at the [facility] [place]. 3. Patient will be referred for a Psychology evaluation here at the [facility] Pain [facility]. 4. Following the completion of these [...] Belinda Meehan is a 46 y.o. female [id number] Chief Complaint: Patient presents with: Pain - [...] as PAIN MEDICINES: Opioids: Hydrocodone (Vicodin, Lortab, Carson): Why stopped?: don't remember. Came off due [...] HX SALPINGO-OOPHORECTOMY COLONOSCOPY Comment: 03/2006 HX TONSILLECTOMY CA D&C AFTER DELIVERY CA INJECT TRIGGER POINT, 1 OR 2 Family [...] a Physical Therapy evaluation here at the [facility]. 3. Patient will be referred for a Psychology evaluation here at the [facility] Pain [facility] er. 4. Following the completion [...] you for referring [facility] [place] for a chronic pain management evaluation. I trust that you will find the recomm endations satisfactory and that you will be able to implement these in the care of your mehreen ent. Should you have any concerns or questions, please contact me, I would be happy to add ress those with you. DELFINA MOLINA RUST [facility] [place] Mail code CH 4P [place] [facility] [address] [place] [address] metimothy Tasha - 05/29/2006 1:51 PM [...] drinking? no -Do you ever drink an eye-library technology instructor in the morning to relieve the shakes? [...] stressful life experiences recently? yes If yes, explain:aoc plans intelligence officer chief brigida pain GOALS AND EXPECTATIONS 23. What do you expect from our pain program? Help in coping with the pain 24. What types of treatment do you expect from your visits to the [facility] Pain Center ? Stress Management documented in [...]
--- OUTSIDE RECORDS SUMMARY | ~2019-10-17 | XMS | Encounter Summary ---
Demographics + + + | Address | [address] | | | [place] [address] | + + + | Home Phone [...] Team Providers + +------+ + | Care Motion Picture Equipment Supervisor Name | Role | Phone | [...] + + | 06/26/ | Telephone | [facility] | Alanis, | ER Follow-up | | 2017 | | MEDICINE [address] [place] [address] | MD [place] | | | | | [place] | [address] [place] [address] | | | | | [place] [address] | [place] [address] | | | | | [phone] | [phone] | | | | | | | [...] | | | | | [place] [address] | | | | | | [phone] | | | | | | | | +--------+---------+ + + + | 12/20/ | Office | Audiology | Elisabet Munson MS | | | 2019 | Visit | | [facility] [address] | | | | | | [address] [place] | | | | | | [place] [address] | | | | | | [phone] | | | | | | | | +--------+---------+ + + + | 12/20/ | Office | Otolaryngology | Ulysses Genao MD | | | 2020 | Visit | | [address] [facility] | | | | | | [address] [place], | | | | | | [place] [address] | | | | | | [phone] | | | | | | | | +--------+---------+ + + + documented as of this encounter Visit Diagnoses Not on filedocumented in this encounter"
--- OUTSIDE RECORDS SUMMARY | ~2019-10-17 | XMS | Encounter Summary ---
Demographics + + + | Address | [address] | | | [place] [address] | + + + | Home Phone [...] Team Providers + +------+ + | Care Advertisement Distributor Name | Role | Phone | [...] | 04/08/ | Telephone | [facility] Comprehensive | Rosi Antonio, | | | 2012 | | Pain Center at | ANP | | | | | [facility] | | | | | | [address] | | | | | | Mailcode: CH15P | | | | | | [facility] | | | | | | and Healing, | | | | | | | | | | | | Floor [place], [place] | | | | | | [address] | | | | | | [phone] | | | +--------+ + + + [...]
--- OUTSIDE RECORDS SUMMARY | ~2019-10-17 | XMS | Encounter Summary ---
Demographics + + + | Address | [address] | | | [place] [address] | + + + | Home Phone [...] Team Providers + +------+ + | Care Avionics Mechanic Name | Role | Phone | [...] + | 09/04/ | Refill | [facility] | Alanis, | Medication Refill | | 2019 | | MEDICINE [address] | MD Petr[place]a | | | | | [facility] | [address] [place] [address] | | | | | [place] [address] | [place] [address] | | | | | [phone] | [phone] | | | | | | | [...] | | | | | [place] [address] | | | | | | [phone] | | | | | | | | +--------+---------+ + + + | 12/20/ | Office | Audiology | Elisabet Munson MS | | | 2019 | Visit | | [facility] [address] | | | | | | [place] [address] [place] | | | | | | [place] [address] | | | | | | [phone] | | | | | | | | +--------+---------+ + + + | 12/20/ | Office | Otolaryngology | Ulysses Genao MD | | | 2020 | Visit | | [address] [facility] | | | | | | [address] [place], | | | | | | [place] [address] | | | | | | [phone] | | | | | | | | +--------+---------+ + + + documented as of this encounter Visit Diagnoses Not on filedocumented in this encounter"
--- OUTSIDE RECORDS SUMMARY | ~2019-10-17 | XMS | Encounter Summary ---
Demographics + + + | Address | [address] | | | [place] [address] | + + + | Home Phone [...] Providers + +------+ + | Care Welding Foreman Name | Role | Phone | [...] + + | 10/16/ | Telephone | [facility] | Alanis, | Wrist Pain | | 2018 | | MEDICINE [address] [place] [address] | MD [place]ron[place] | | | | | [facility] | [address] [place] [address] | | | | | [place] [address] | [place] [address] | | | | | [phone] | [phone] | | | | | | | [...] | | | | | [place] [address] | | | | | | [phone] | | | | | | | | +--------+---------+ + + + | 12/20/ | Office | Audiology | Elisabet Munson MS | | | 2020 | Visit | | [facility] [address] | | | | | | [address] [place] [address] [place] | | | | | | [place] [address] | | | | | | [phone] | | | | | | | | +--------+---------+ + + + | 12/20/ | Office | Otolaryngology | Ulysses Genao MD | | | 2020 | Visit | | [address] [place] | | | | | | [address] [place], | | | | | | [place] [address] | | | | | | [phone] | | | | | | | | +--------+---------+ + + + documented as of this encounter Visit Diagnoses Not on filedocumented in this encounter"
--- OUTSIDE RECORDS SUMMARY | ~2019-10-17 | XMS | Encounter Summary ---
Demographics + + + | Address | [address] | | | [place] [address] | + + + | Home Phone [...] Providers + +------+ + | Care Bus Attendant Name | Role | Phone | [...] | Pain | Diagnoses | Miracle, | [place], | | | | Management | LBP (low | NIHARIKA Jean | Lukasz Rhodes, PhD | | | | | back pain) | [address] | [address] | | | | | DJD | [address] | Ave | | | | | (degenerativ | [place], [place] | [place] | | | | | e joint | [address] | [address] | | | | | disease) of | | Phone: | | | | | knee Knee | | [phone] | | | | | pain Major | | Fax: | | | | | depressive | | [phone] | | | | | disorder, | [...] 11/23/ | Office | [facility] | Lukasz Charles, | Major Depressive | | 2007 | Visit | [address] | PhD [address] | Disorder, Recurrent | | | | Mailcode: 15P | [place], [place] | Episode, Moderate | | | | [place] for [facility] | [address] | ([facility]); LBP (Low Back | | | | and Healing, | [phone] | Pain); Bilateral | | | | | | Knee Pain; | | | | Floor [place], [place] | | Adjustment Disorder | | | | [address] | | with Anxiety | | | | [phone] | | | +--------+---------+ + + + [...] frustra tion by being less active. Diagnosis: Earlton I: 1. (296.32) Major depressive disorder, recurrent, moderate. 2. (309.24) Adjustment disorder with anxiety. 3. 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 Earlton II: Deferred Earlton III: abdominal pain, migraine headache, low back pain. Earlton IV: low finances Earlton V: GAF 55-60 Plan: return with next medical follow-up appointment. Check mood, abdominal pain, relaxat ion, activity, distraction. Continue cognitive/behavioral therapy. Total time spent with patient was approximately 45 minutes. LUKASZ CHARLES [facility] [address] [facility], [address]th [place] [address] documented in this encount er Plan of [...]
--- OUTSIDE RECORDS SUMMARY | ~2019-10-17 | XMS | Encounter Summary ---
Demographics + + + | Address | [address] | | | [place] [address] | + + + | Home Phone [...] Team Providers + +------+ + | Care Debt And Budget Counselor Name | Role | Phone | [...] | | | | | site | [place] | | | | | Cervicalgia | [address] | [address] | | | | | Pain in [...] 07/15/ | Office | Comprehensive Pain | Nahtalia Arora | Cervical Spondylosis | | 2006 | Visit | [facility] | [address] [facility] | without Myelopathy | | | | [place] [address] | Clementina Winkler [place], | (Primary Dx); | | | | [address] Mailcode: | [place] [address] | Spondylosis with | | | | [facility] | | Myelopathy, Lumbar | | | | Health and Healing, | | Region; Herniated | | | | | | Lumbar | | | | Floor [place], [place] | | Intervertebral Disc; | | | | [address] | | Unspecified Myalgia | | | | [phone] | | and Myositis | +--------+---------+ + [...] Date: July 17, 2006 Patient: Belinda Meehan, [id number], 1960 I agree with the proposed Physical Therapy Treatment Plan. Provider: DELFINA MOLINA ANP elfina Molina - 007 6:13 PM PST.pt rlands Nathalia willson - 07/15/2006 4:28 PM PSTFormatting of this note might be different from the origin al. Physical Therapy Medicare Progress Note Date: 07/15/2006 Belinda Meehan [id number]. 1960 Start of Care: 06/23/2006 Referring Provider: [...]
--- OUTSIDE RECORDS SUMMARY | ~2019-10-17 | XMS | Encounter Summary ---
Demographics + + + | Address | [address] | | | [place] [address] | + + + | Home Phone [...] Team Providers + +------+ + | Care Chips Screen Tender Name | Role | Phone | [...] + | 01/20/ | Refill | [facility] | Alanis, | Medication Refill | | 2017 | | MEDICINE [address] [place] [address] | MD Petrona | | | | | [facility] | [address] [place] [address] | | | | | [place] [address] | [place] [address] | | | | | [phone] | [phone] | | | | | | | [...] | | | | | [place] [address] | | | | | | [phone] | | | | | | | | +--------+---------+ + + + | 12/20/ | Office | Audiology | Elisabet Munson MS | | | 2019 | Visit | | [facility] [address] | | | | | | [place] [address] [place] | | | | | | [place] [address] | | | | | | [phone] | | | | | | | | +--------+---------+ + + + | 12/20/ | Office | Otolaryngology | Ulysses Genao MD | | | 2020 | Visit | | [address] [facility] | | | | | | [address] [place], | | | | | | [place] [address] | | | | | | [phone] | | | | | | | | +--------+---------+ + + + documented as of this encounter Visit Diagnoses Not on filedocumented in this encounter"
--- OUTSIDE RECORDS SUMMARY | ~2019-10-17 | XMS | Encounter Summary ---
Demographics + + + | Address | [address] | | | [place] [address] | + + + | Home Phone [...] Team Providers + +------+ + | Care Gm Name | Role | Phone | + [...] | | 2006 | | [facility] at [place] | [address] [place] | | | | | for [facility] and | [place], [place] | | | | | Healing [address] | [address] | | | | | Ave Mailcode: | [phone] | | | | | [facility] [facility] | | | | | | Health and Healing, | | | | | | [facility] | | | | | | [place], [place] | | | | | | [address] | | | | | | [phone] | | | +--------+ + + + [...]
--- OUTSIDE RECORDS SUMMARY | ~2019-10-17 | XMS | Encounter Summary ---
Demographics + + + | Address | [address] | | | [place] [address] | + + + | Home Phone [...] Team Providers + +------+ + | Care Echo Vasc Tech Name | Role | Phone | [...] [address] | | | | | [place], [place] | [place], [place] | | | | | [address] | [address] | | | | | [phone] | [phone] | | | | | | | [...]
--- OUTSIDE RECORDS SUMMARY | ~2019-10-17 | XMS | Encounter Summary ---
Demographics + + + | Address | [address] | | | [place] [address] | + + + | Home Phone [...] Providers + +------+ + | Care Entertainment Reporter Name | Role | Phone | [...] of this encounter Progress Notes Interface, Gas Engine Repairer In - 01/11/2005 8:56 PM PDTClinic Date: [...] bypass surgery and will be admitted to [facility] for this procedure on November 22, 2003. [...] Ester Romero M.D. Issac Meeks M.D. / [id number] / [id number] / [id number] / [id number] Tdocumented in this encounter Plan of Treatment Not on filedocumented as of this encounter Visit Diagnoses Not on filedocumented in this encounter"
--- OUTSIDE RECORDS SUMMARY | ~2019-10-17 | XMS | Encounter Summary ---
Demographics + + + | Address | [address] | | | [place] [address] | + + + | Home Phone [...] Providers + +------+ + | Care Heel Top Lift Splitter Name | Role | Phone | [...] | Diagnoses | Rileyacle, | Fili Pt Radio Repair Teacher | | | | Therapy | Muscle | NIHARIKA Jean | Chh[facility] [address] | | | | | strain Neck | [address] | [address] | | | | | pain | [address] | Mailcode: | | | | | Fibromyalgia | [place], [place] | [facility] | | | | | Radicular | [address] | for Health | | | | | pain in left | | and Healing, | | | | | arm | | Building [address] | | | | | Procedures | | [place], [place] | | | | | PHYSICAL | | [address] | | | | | THERAPY | | Phone: | | | | | REFERRAL | | [phone] | +--------+--------+ + + + + Reason for Visit + + + | Reason | Comments | + + + | LBP - Low back pain | | + + + Encounter Details +--------+---------+ + + + | Date | Type | Department | Care Team | Description | +--------+---------+ + + + | 08/22/ | Office | MOWANG Basilio | Delfina Lambert, | Muscle Strain hips; | | 2008 | Visit | Pain Center at | ANP | Fibromyalgia; Neck | | | | [facility] | | Pain; Radicular Pain | | | | [address] | | in Left Arm; | | | | Mailcode: CH15P | | Dizziness; Black | | | | [place] for [facility] | | Out; Falling | | | | and Healing, | |Falling | | | | Building | | | | | | Floor [place], [place] | | | | | | [address] | | | | | | [phone] | | | +--------+---------+ + + + [...] this encounter Patient Instructions Patient Instructions Delfina Lambetr ANP - 08/22/2008 11:17 AM PDTNo change in medications Schedule PT evaluation and treat for neck and hip/back Continuewith Dr Ogden schedule a follow up visit Schedule MRI of the neck at [facility] Use your TENS for the muscle pain Schedule follow up after the MRI to review results documented in this encounter Progress Notes Delfina Lambert ANP - 08/22/2008 10:22 AM PDTFormatting of this note might be different fr om the original. 08/22/2008 Belinda Meehan is a 48 y.o. female [facility] Comprehensive Pain Center [...] drawing has be completed, which I reviewed. [facility] Brief Pain Inventory: (ten= worst [...] appointment to see lumbar spine surgery in [place] on . Psychiatric History: depressed mood, sleep [...] 278 01/18 Paniculectomy Hx lumbar fusion 05/2008 L5-A0lcyall with bone spur removals Family History Problem [...] to get the MRI results befor planning [facility] care. Belinda was compliant with all [...] COMPRE[facility] C[facility] Mail code CH 4P [facility] and [address] [address] Ailyn Foster Malissa - 03/2009 [...]
--- OUTSIDE RECORDS SUMMARY | ~2019-10-17 | XMS | Encounter Summary ---
Demographics + + + | Address | [address] | | | [place] [address] | + + + | Home Phone [...] Providers + +------+ + | Care Plant Machinist Name | Role | Phone | [...] + + | 03/31/ | Office | [facility] Comprehensive | Petra Delfina, | Encounter for | | 2006 | Visit | Pain Center at | ANP | Long-Term (Current) | | | | [facility] | | Use of Opioids; Left | | | | [address] | | Knee Pain; | | | | Mailcode: CH15P | | Arthroplasty of the | | | | [facility] | | Left Knee; DJD | | | | and Healing, | | (Degenerative Joint | | | | | | Disease) of Knee; | | | | Floor [place], [place] | | Fibromyalgia | | | | [address] | | syndrome 729.1; | | | | [phone] | | Adjustment Disorder | | | [...] Belinda Meehan is a 47 y.o. female [facility] Pain [facility] Return Visit [...] value in her continuing here at the [facility] until her bilateral knee [...] with any concerns or questions. DELFINA MOLINA [facility] Mail code CH 4P [facility] and [address] [address] Tasha Can - 03/31/2007 9:15 [...]
--- OUTSIDE RECORDS SUMMARY | ~2019-10-17 | XMS | Encounter Summary ---
Demographics + + + | Address | [address] | | | [place] [address] | + + + | Home Phone [...] Providers + +------+ + | Care Electronic Test Technician Name | Role | Phone | [...] of this encounter Progress Notes Interface, Food And Nutrition Services Assistant In - 12/11/2005 2:05 AM PDT [id number] GEOVANNI SKELTON J [id number] Clinic Date: 11/27/2005 Clinic: Rheumatology Primary Care [...] 6 months. Caitlin Rivera M.S., F.N.P. / [id number] / [id number] / [id number] / [id number] cc: Pedrito Gutierrez M.D. [address] [place] [id number] Electronically signed by Caitlin Rivera 12-10-2005 09:27:21 AM documented i n this encounter Plan of Treatment Not on filedocumented as of this encounter Visit Diagnoses Not on filedocumented in this encounter"
--- OUTSIDE RECORDS SUMMARY | ~2019-10-17 | XMS | Encounter Summary ---
Demographics + + + | Address | [address] | | | [place] [address] | + + + | Home Phone [...] Team Providers + +------+ + | Care Timekeeping Supervisor Name | Role | Phone | [...] | | Street [place] | [address] [facility] | pathological | | | | [place] [address] | [place] [address] | fracture presence | | | | [phone] | [phone] | (Primary Dx); | | | | [...] approx 07/29/17, last one done at the [facility] Belinda Meehan is a 57 [...] She is seeing a pain specialist in [place] and is receiving hydrocodone from them. She needs a refill of Lomotil for chronic diarrhea which she tolerates well. She also reports some discomfort in the left nostril which is plugged most of the time for last several weeks. No fever or chills. No purulent drainage. Has history of allergies. REVIEW OF SYSTEMS See [facility] for further details. Review of systems otherwise negative. PAST MEDICAL HISTORY Past Medical History: Diagnosis Date Arthritis Atypical chest pain Benign essential hypertension Blind left eye Cervical radiculopathy Chronic low back pain 01/04/2015 Chronic neck pain 01/04/2015 Chronic pain Chronic venous insufficiency Coccydynia COPD (chronic obstructive pulmonary disease) ([facility]) Depression Diarrhea Dumping syndrome Fatigue fracture of vertebra Fibromyalgia Glaucoma Hyperparathyroidism (HCC) Hypothyroidism IBS (irritable bowel syndrome) Idiopathic scoliosis Leg edema Lumbar postlaminectomy syndrome Lumbar radiculopathy primarily right 01/04/2015 Meniere syndrome Migraines Muscle cramping Muscle spasm Myalgia Nonalcoholic hepatosteatosis Obesity Opiate dependence (HCC) Orthostatic hypotension OLIVER (obstructive sleep apnea) Osteoarthritis, generalized Osteopenia Osteoporosis Peripheral neuropathy ([facility]) Rheumatoid arthritis ([facility]) Right arm pain 01/04/2015 RLS (restless legs syndrome) S/P lumbar fusion 01/04/2015 Scoliosis Spondylosis with myelopathy, lumbar region Stroke ([facility] [...] (See Comments) Confused and questionable for seizures Mqjnbvyuwy-Hwnk-Jqtzugyb Cephalexin Hives Duloxetine Migraines and nausea Ketorolac Hives Morphine Swelling Ropinirole Hcl Hives Tramadol Hcl Nausea Only Uputpkglxn-Cchw-Hztpxroe Hives and Rash Ciprofloxacin Hives and Rash [...] Note: Parts of this documentwere created using [employer] speech recognition software. As a r esult, [...] | | | | | [place] [address] | | | | | | [phone] | | | | | | | | +--------+---------+ + + + | 12/20/ | Office | Audiology | Elisabet Munson MS | | | 2019 | Visit | | [facility] [address] | | | | | | [address] [place] | | | | | | [place] [address] | | | | | | [phone] | | | | | | | | +--------+---------+ + + + | 12/20/ | Office | Otolaryngology | Ulysses Genoa MD | | | 2019 | Visit | | [address] | | | | | | [address] [place], | | | | | | [place] [address] | | | | | | [phone] | | | | | | | [...]
--- OUTSIDE RECORDS SUMMARY | ~2019-10-17 | XMS | Encounter Summary ---
Demographics + + + | Address | [address] | | | [place] [address] | + + + | Home Phone [...] Providers + +------+ + | Care Junior Assistant Manager Name | Role | Phone | [...] [address] | | | | | [facility] | [place], [place] | | | | | [address] | [address] | | | | | [address] | [phone] | | | | | [facility] | | | | | | Physician's | | | | | | Pavilion [place], | | | | | | [place] [address] | | | | | | [phone] | | | +--------+ + + + [...]
--- OUTSIDE RECORDS SUMMARY | ~2019-10-17 | XMS | Encounter Summary ---
Demographics + + + | Address | [address] | | | [place] [address] | + + + | Home Phone [...] | | | | | [facility] | | | | | | [facility] Floor | | | | | | [place], [place] | | | | | | [address] | | | | | | [phone] | | | +--------+ + + + [...]
--- OUTSIDE RECORDS SUMMARY | ~2019-10-17 | XMS | Encounter Summary ---
Demographics + + + | Address | [address] | | | [place] [address] | + + + | Home Phone [...] Providers + +------+ + | Care Records Manager Name | Role | Phone | [...]
--- OUTSIDE RECORDS SUMMARY | ~2019-10-17 | XMS | Encounter Summary ---
Demographics + + + | Address | [address] | | | [place] [address] | + + + | Home Phone [...] Providers + +------+ + | Care Industrial Hygenist Name | Role | Phone | + [...] as of this encounter Progress Notes Interface, Printer'S Assistant In - 01/21/2006 1:09 AM [facility] [place] [address] [address], [place] [address] or March 15, 2002 Pedrito Gutierrez M.D. [facility] [address] [place] [address] RE: BELINDA MEEHAN MR #: [id number] Dear Dr. Gutierrez: I had the pleasure [...] to set her up to see a forestry consultant in Neurology or the [facility] [...] to contact me. Sincerely, Issac Meeks M.D. grease remover Division of Endocrinology, Diabetes, and Clinical Sand Filler of Metabolic Disorders Clinic [employer] / SHARIF [id number] / [id number] / [id number] / Tdocumented in this encounter Plan of Treatment Not on filedocumented as of this encounter Visit Diagnoses Not on filedocumented in this encounter"
--- OUTSIDE RECORDS SUMMARY | ~2019-10-17 | XMS | Encounter Summary ---
Demographics + + + | Address | [address] | | | [place] [address] | + + + | Home Phone [...] Providers + +------+ + | Care Roll Hauler Name | Role | Phone | + [...] | | | | [address] Physician's | [place], [place] | | | | | [address] | [address] | | | | | [place], [place] | [phone] | | | | | [address] | | | | | | [phone] | | | +--------+ + + + [...] + + + | [facility] | [address] | [place] [address] | | | LABORATORY | | | [...] DEPARTMENT OF | [address] | [place] [address] | | | PATHOLOGY | [address] | | | + + + + + | [facility] | [address] | [place] [address] | | | PATHOLOGY | [address] | | | + + + + + documented in this encounter Visit Diagnoses Not on filedocumented in this encounter"
--- OUTSIDE RECORDS SUMMARY | ~2019-10-17 | XMS | Encounter Summary ---
Demographics + + + | Address | [address] | | | [place] [address] | + + + | Home Phone [...] Team Providers + +------+ + | Care Vineyard Worker Name | Role | Phone | + +------+ + | Pedrito Gutierrez MD | PCP | | + +------+ + Encounter Details +--------+ + + + + | Date | Type | Department | Care Team | Description | +--------+ + + + + | 04/17/ | Telephone | [facility] Division of | Carlos Arreola, | | | 2005 | | Gastroenterology/Hep | [address] | | | | | atology [address] | | | | | [address] | [place] [address] | | | | | Mailcode: PV310 | [phone] | | | | | Physician's [address] | | | | | | [address] | | | | | | [place], [place] | | | | | | [address] | | | | | | [phone] | | | +--------+ + + + [...]
--- OUTSIDE RECORDS SUMMARY | ~2019-10-17 | XMS | Encounter Summary ---
Demographics + + + | Address | [address] | | | [place] [address] | + + + | Home Phone [...] Team Providers + +------+ + | Care Shrimper Name | Role | Phone | + +------+ + | Sulaiman Carrera MD | PCP | | + +------+ + Encounter Details +--------+ + + + + | Date | Type | Department | Care Team | Description | +--------+ + + + + | 01/29/ | Ancillary | Registration [address] | Beto Meeks MD | | | 2005 | Registratio | [facility] | [address] | | | | n | [place] Mailcode: RPB07 | [place], [place] | | | | | [place], [place] | [address] | | | | | [address] | [phone] | | | | | [phone] | | | +--------+ + + + [...] | | | | Test performed by [facility] | | | | | | Laboratories. | | | | + + + + + + + + | Specimen | + + | | + + + + + + + | Performing | Address | City/State/Zipcode | Phone Number | | Organization | | | | + + + + + | [facility] | [address] | [place], [place] | | | [facility] | | [address] | | + + + + + [...] | uIU/ml | | | | | [facility] | | | | | | Laboratories. | | | | + + + + + + + + | Specimen | + + | | + + + + + + + | Performing | Address | City/State/Zipcode | Phone Number | | Organization | | | | + + + + + | [facility] | [address] | [place] [address] | | | LABORATORY | | | [...] BASO # | 0.0 | <0.3 | [facility] | | | | | | DEPARTMENT [...] [facility] DEPARTMENT OF | [address] | [place] [address] | | | PATHOLOGY | [address] | | | + + + + + | [facility] DEPARTMENT OF | [address] | [place] [address] | | | PATHOLOGY | [address] [...] DEPARTMENT OF | [address] | [place], [place] [address] | | | PATHOLOGY | [address] | | | + + + + + | [facility] DEPARTMENT OF | [address] | [place] [address] | | | PATHOLOGY | [address] [...] Performed At | + + + | [id number] Estimated GFR > 60 mL/min/1.73 sq m if non- | [facility] | | [id number] Estimated GFR > 60 mL/min/1.73 sq m [...] DEPARTMENT OF | [address] | [place] [address] | | | PATHOLOGY | [address] | | | + + + + + | [facility] DEPARTMENT OF | [address] | [place] [address] | | | PATHOLOGY | [address] | | | + + + + + documented in this encounter Visit Diagnoses Not on filedocumented in this encounter"
--- OUTSIDE RECORDS SUMMARY | ~2019-10-17 | XMS | Encounter Summary ---
Demographics + + + | Address | [address] | | | [place] [address] | + + + | Home Phone [...] Providers + +------+ + | Care Tire Mechanic Name | Role | Phone | [...] | 2006 | Visit | [facility] [place] | [address] [place] | (Primary Dx); DJD | | | | for Health and | [place], [place] | (Degenerative Joint | | | | Healing [address] | [address] | Disease) of Left | | | | Ave Mailcode: | [phone] | Knee | | | | [address] [facility] | | | | | | Health and Healing, | | | | | | [facility] | | | | | | [place], [place] | | | | | | [address] | | | | | | [phone] | | | +--------+---------+ + + + [...] note might be different from lesli gomez. 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 She is doing PT as this point. With some benefit. She is concerned because she now has some poppin mahesh dlocking symptoms and wants to know if there si something that skirt clipper be done w ith a scope to [...] Morphine IM ( only in [facility]) made gut pain worse 08/27/06: Trial of [...] the MRI. Ramon Ibarra M.D. Sports Medicine [facility] [address] [place], [place] [address] [phone] documented in this encoun ter Plan of [...] | + +---------+ + + | [facility] DEPARTMENT OF | | | | | [...]
--- OUTSIDE RECORDS SUMMARY | ~2019-10-17 | XMS | Encounter Summary ---
Demographics + + + | Address | [address] | | | [place] [address] | + + + | Home Phone [...] Team Providers + +------+ + | Care Taxi Dancer Name | Role | Phone | + [...] + | 10/09/ | Refill | [facility] | Alanis, | Medication Refill | | 2017 | | MEDICINE [address] [place] [address] | MD [place] | | | | | [facility] | [address] [place] [address] | | | | | [place] [address] | [place] [address] | | | | | [phone] | [phone] | | | | | | | [...] | | | | | [place] [address] | | | | | | [phone] | | | | | | | | +--------+---------+ + + + | 12/20/ | Office | Audiology | Elisabet Munson MS | | | 2019 | Visit | | [facility] [address] | | | | | | [place] [address] [place] | | | | | | [place] [address] | | | | | | [phone] | | | | | | | | +--------+---------+ + + + | 12/20/ | Office | Otolaryngology | Ulysses Genao MD | | | 2020 | Visit | | [address] [facility] | | | | | | [address] [place], | | | | | | [place] [address] | | | | | | [phone] | | | | | | | | +--------+---------+ + + + documented as of this encounter Visit Diagnoses Not on filedocumented in this encounter"
--- OUTSIDE RECORDS SUMMARY | ~2019-10-17 | XMS | Encounter Summary ---
Demographics + + + | Address | [address] | | | [place] [address] | + + + | Home Phone [...] Team Providers + +------+ + | Care Edger Machine Operator Name | Role | Phone [...] Rd | | | | | | [place], [place] | | | | | | [address] | | | +--------+ + + + [...]
--- OUTSIDE RECORDS SUMMARY | ~2019-10-17 | XMS | Encounter Summary ---
Demographics + + + | Address | [address] | | | [place] [address] | + + + | Home Phone [...] Team Providers + +------+ + | Care Intertype Operator Name | Role | Phone | [...] | + +--------+ + + + | MS GI TRACT IMAGING, | | 05/12/2006 | | | | INTRALUMINAL | | | | | + +--------+ + + + documented in this encounter Visit Diagnoses Not on filedocumented in this encounter"
--- OUTSIDE RECORDS SUMMARY | ~2019-10-17 | XMS | Encounter Summary ---
[...] [facility] | | | | | [facility] | [place], [place] | | | | | [address] | [address] | | | | | [address] | [phone] | | | | | [facility] | | | | | | Physician's | | | | | | Pavilion [place], | | | | | | [place] [address] | | | | | | [phone] | | | +--------+--------+ + + + [...]
--- OUTSIDE RECORDS SUMMARY | ~2019-10-17 | XMS | Encounter Summary ---
Demographics + + + | Address | [address] | | | [place] [address] | + + + | Home Phone [...] Providers + +------+ + | Care Nuclear Reactor Engineer Name | Role | Phone | [...] Acute pain | Emmy-Tajt | [address] | | | | | of right | i, | [place], | | | | | shoulder | [place] | [place] | | | | | Procedures | , [place] [address] | [address] | | | | | MRI Shoulder | [address] | Phone: | | | | | Right wo | [place], | [phone] | | | | | Contrast | [place] | Fax: | | | | | | [address] | [phone] | | | | | | Phone: | | | | | | | [phone] | | | | | | | Fax: | | | | | | | [phone] | | +--------+--------+ + + + + [...] Acute pain | Emmy-Tajt | [address] | | | | | of right | i, | [place], | | | | | shoulder | [place] | [place] | | | | | Procedures | , [address] | [address] | | | | | MRI Shoulder | [address] | Phone: | | | | | Right wo | [place], | [phone] | | | | | Contrast | [place] | Fax: | | | | | | [address] | [phone] | | | | | | Phone: | | | | | | | [phone] | | | | | | | Fax: | | | | | | | [phone] | | +--------+--------+ + + + + Encounter Details +--------+ + + + + | Date | Type | Department | Care Team | Description | +--------+ + + + + | 02/17/ | Hospital | [facility] | Emmy-Kamlesh, | Acute pain of right | | 2018 | Encounter | MED CTR MRI [address] | MD [place] | shoulder | | | | [address] [place], | [address] [place] | | | | | [place] [address] | [place] [address] | | | | | [phone] | [phone] | | | | | | | [...] drop nightly. | | 0 | | 06/03/201 | | (LJ Ruiz) 0.004% | | [...] | | | | | [place] [address] | | | | | | [phone] | | | | | | | | +--------+---------+ + + + | 12/20/ | Office | Audiology | Elisabet Munson MS | | | 2019 | Visit | | [facility] [address] | | | | | [address] [place] | | | | | | [place] [address] | | | | | | [phone] | | | | | | | | +--------+---------+ + + + | 12/20/ | Office | Otolaryngology | Ulysses Genao MD | | | 2019 | Visit | | [address] | | | | | | [address] [place], | | | | | | [place] [address] | | | | | | [phone] | | | | | | | [...]
--- OUTSIDE RECORDS SUMMARY | ~2019-10-17 | XMS | Encounter Summary ---
Demographics + + + | Address | [address] | | | [place] [address] | + + + | Home Phone [...] Providers + +------+ + | Care Space Systems Operations Superintendent Name | Role | Phone | [...] + + | 10/16/ | Telephone | [facility] | Alanis, | Illness | | 2020 | | MEDICINE [address] | MD [place] | | | | | [facility] | [address] [place] [address] | | | | | [place] [address] | [place] [address] | | | | | [phone] | [phone] | | | | | | | [...] | | | | | [place] [address] | | | | | | [phone] | | | | | | | | +--------+---------+ + + + | 12/20/ | Office | Audiology | Elisabet Munson MS | | | 2019 | Visit | | [facility] [address] | | | | | | [place] [address] [place] | | | | | | [place] [address] | | | | | | [phone] | | | | | | | | +--------+---------+ + + + | 12/20/ | Office | Otolaryngology | Ulysses Genao MD | | | 2020 | Visit | | [address] [facility] | | | | | | [address] [place], | | | | | | [place] [address] | | | | | | [phone] | | | | | | | | +--------+---------+ + + + documented as of this encounter Visit Diagnoses Not on filedocumented in this encounter"
--- OUTSIDE RECORDS SUMMARY | ~2019-10-17 | XMS | Encounter Summary ---
Demographics + + + | Address | [address] | | | [place] [address] | + + + | Home Phone [...] Providers + +------+ + | Care Auto Glass Installer Name | Role | Phone | [...] | | Physical | Diagnoses | | Zicarl, | | | | Medicine and | Low back | Emmy-Jefft | Carlos Armijo MD | | | | Rehabilitatio | pain | i, | [address] | | | | n | | [place] | [address] [place] | | | | | MD [address] | [place] | | | | | | [address] | [address] Phone: | | | | | | [place], | [phone] | | | | | | [place] | Fax: | | | | | | [address] | [phone] | | | | | | Phone: | | | | | | | [phone] | | | | | | | Fax: | | | | | | | [phone] | | +--------+--------+ + + + + [...] Chronic neck pain; | | | | [address] | | Chronic low back | | | | [phone] | | pain; Lumbar | | | [...] of the procedure you must provide a fork truck driver to take you home. For all procedur es it is recommended that someone else drive you home. documented in this encounter Progress Notes Carlos Hsieh MD - 01/04/2015 8:13 AM PDT Carlos Hsieh MD [address] [facility], [address] [place], [place] [id number] FAX: PHYSICAL MEDICINE AND REHABILITATION H&P CHIEF COMPLAINT: Chief Complaint Patient presents with Neck Pain Neck pain that radiates between the shoulder blades and down from there HISTORY OF PRESENT ILLNESS: The patient is a 54 y.o. female [facility] for complaints of pain [...] were performed by a Dr. García in [place]. Th e patient is unable to take NSAID's because apparently last time she took them she was black and blue all over. PAST MEDICAL HISTORY: Past Medical History Diagnosis Date Diarrhea Osteoarthritis, generalized Migraine Osteopenia Obesity Syncope Hyperparathyroidism ([facility]) RLS (restless legs syndrome) OLIVER (obstructive sleep apnea) Depression COPD (chronic obstructive pulmonary disease) ([facility]) Fibromyalgia Peripheral neuropathy Chronic pain Benign essential hypertension Rheumatoid arthritis ([facility]) IBS (irritable bowel syndrome) Scoliosis Hypothyroidism Stroke ([facility]) Blind left eye Arthritis Osteoporosis Migraines Dumping [...] visit. ALLERGIES: Allergies Allergen Reactions Amitriptyline Hcl Qpsmqvjwda-Nmao-Bcjhubfh Cephalexin Ciprofloxacin Clarithromycin Clindamycin Hcl Codeine Sulfate [...] has no apparent deficits with short or intermediate project manager memory. She has appropriate fund of knowledge [...] of the cervical spine next week at [facility]. The patient was informed to [...] | | | | | [place] [address] | | | | | | [phone] | | | | | | | | +--------+---------+ + + + | 12/20/ | Office | Audiology | Elisabet Munson MS | | | 2019 | Visit | | [facility] [address] | | | | | | [address] [place] | | | | | | [place] [address] | | | | | | [phone] | | | | | | | | +--------+---------+ + + + | 12/20/ | Office | Otolaryngology | Ulysses Genao MD | | | 2019 | Visit | | [address] | | | | | | [address] [place], | | | | | | [place] [address] | | | | | | [phone] | | | | | | | | +--------+---------+ + + + documented as of this encounter Results [place] ELIANA Lumbar Transforaminal (01/19/2015 12:00 PM PDT) + + | Specimen | + + | | + + + + + | Narrative | Performed At | + + + | 01/19/2015 Bilateral Transforaminal Epidural Steroid Injections | [facility] | | Diagnosis: Lumbar radiculopathy ICD-9 Code 724.4 Belinda Basilio | [facility] | | Shefali presents to the fluoroscopy suite for [facility] | | fluoroscopically-guided bilateral L5-S1 [...] + | [address] | [address] | [place] | [phone] | | [facility] | | [address] | | | - IMAGING | | [...]
--- OUTSIDE RECORDS SUMMARY | ~2019-10-17 | XMS | Encounter Summary ---
Demographics + + + | Address | [address] | | | [place] [address] | + + + | Home Phone [...] Rd | | | | | | [place], [place] | | | | | | [address] | | | +--------+ + + + [...]
--- OUTSIDE RECORDS SUMMARY | ~2019-10-17 | XMS | Encounter Summary ---
Demographics + + + | Address | [address] | | | [place] [address] | + + + | Home Phone [...] Team Providers + +------+ + | Care Access Liaison Name | Role | Phone | [...] as of this encounter Progress Notes Interface, Clerical Adviser In - 08/19/2005 2:05 AM PST [id number] [facility] Date: 07/24/2005 Clinic: Hematology [...] full and complete summary. Lukasz Sellers M.D. bread packer NANCY / SHARIF [id number] / [id number] / [id number] / [id number] cc: Pedrito Gutierrez M.D. [address] [place] [address] Electronically signed by Lukasz Sellers 08-18-2005 01:28:24 PM documented i n this encounter Plan of Treatment Not on filedocumented as of this encounter Visit Diagnoses Not on filedocumented in this encounter"
--- OUTSIDE RECORDS SUMMARY | ~2019-10-17 | XMS | Encounter Summary ---
Demographics + + + | Address | [address] | | | [place] [address] | + + + | Home Phone [...] | | | | Mailcode: L223A | [place], [place] | | | | | [facility] | [address] | | | | | [address] [place], [place] | [phone] | | | | | [address] | | | | | | [phone] | | | +--------+ + + + [...]
--- OUTSIDE RECORDS SUMMARY | ~2019-10-17 | XMS | Encounter Summary ---
Demographics + + + | Address | [address] | | | [place] [address] | + + + | Home Phone [...] Providers + +------+ + | Care Event Specialist Name | Role | Phone | [...] | | | | pain | [place] | [facility] [address] | | | | | Procedures | Clementina Peterson | [address] | | | | | CONSULT TO | [place] | | | | | GI PROCEDURE | [address] | [address] | | | | | UNIT: | Phone: | | | | | | COLONOSCOPY | [phone] | | | | | | | Fax: | | | | | | | [phone] | | + + + + + [...] | | | | Mailcode: L223A | [place], [place] | | | | | [facility] | [address] | | | | | [address] [place], [place] | [phone] | | | | | [address] | | | | | | [phone] | | | +--------+---------+ + + + [...] Ms. Meehan has been seen in the [facility] emergency dept twice in the last month [...] [facility] | [address] | [place], [place] | | | [facility] | | [address] | | + + + + + documented in this encounter Visit Diagnoses + + | Diagnosis | + + | Chronic abdominal pain - Primary Abdominal pain, unspecified site | + + documented in this encounter
--- OUTSIDE RECORDS SUMMARY | ~2019-10-17 | XMS | Encounter Summary ---
Demographics + + + | Address | [address] | | | [place] [address] | + + + | Home Phone [...] Team Providers + +------+ + | Care Ic Design Manager Name | Role | Phone | [...] Results | | 2019 | | MEDICINE [address] [place] [address] | MD [place] | | | | | [facility] | [address] [place] [address] | | | | | [place] [address] | [place] [address] | | | | | [phone] | | | | | | | [...] | | | | | [place] [address] | | | | | | [phone] | | | | | | | | +--------+---------+ + + + | 12/20/ | Office | Audiology | Elisabet Munson MS | | | 2020 | Visit | | [facility] [address] | | | | | | [address] [place] [address] [place] | | | | | | [place] [address] | | | | | | [phone] | | | | | | | | +--------+---------+ + + + | 12/20/ | Office | Otolaryngology | Ulysses Genao MD | | | 2020 | Visit | | [address] | | | | | | [address] [place], | | | | | | [place] [address] | | | | | | [phone] | | | | | | | | +--------+---------+ + + + documented as of this encounter Visit Diagnoses Not on filedocumented in this encounter"
--- OUTSIDE RECORDS SUMMARY | ~2019-10-17 | XMS | Encounter Summary ---
Demographics + + + | Address | [address] | | | [place] [address] | + + + | Home Phone [...] Providers + +------+ + | Care Waste Machine Operator Name | Role | Phone [...] + + | 11/12/ | Telephone | [facility] | Alanis, | Leg Swelling | | 2017 | | MEDICINE [address] [place] [address] | MD [place] | | | | | [facility] | [address] [place] [address] | | | | | [place] [address] | [place] [address] | | | | | [phone] | [phone] | | | | | | | [...] | | | | | [place] [address] | | | | | | [phone] | | | | | | | | +--------+---------+ + + + | 12/20/ | Office | Audiology | Elisabet Munson MS | | | 2019 | Visit | | [facility] [address] | | | | | | [address] [place] | | | | | | [place] [address] | | | | | | [phone] | | | | | | | | +--------+---------+ + + + | 12/20/ | Office | Otolaryngology | Ulysses Genao MD | | | 2020 | Visit | | [address] [facility] | | | | | | [address] [place], | | | | | | [place] [address] | | | | | | [phone] | | | | | | | | +--------+---------+ + + + documented as of this encounter Visit Diagnoses Not on filedocumented in this encounter"
--- OUTSIDE RECORDS SUMMARY | ~2019-10-17 | XMS | Encounter Summary ---
Demographics + + + | Address | [address] | | | [place] [address] | + + + | Home Phone [...] Team Providers + +------+ + | Care Plater Printed Circuit Board Panels Name | Role | Phone | + [...] | - Disregard | | | | [facility] | | | | | | [address] | | | | | | Mailcode: CH15P | | | | | | [facility] | | | | | | and [place], | | | | | | [facility] | | | | | | [place], [place] | | | | | | [address] | | | | | | [phone] | | | +--------+ + + + [...]
--- OUTSIDE RECORDS SUMMARY | ~2019-10-17 | XMS | Encounter Summary ---
Demographics + + + | Address | [address] | | | [place] [address] | + + + | Home Phone [...] Providers + +------+ + | Care Sql Programmer Name | Role | Phone | [...] | | | [facility] | [place], [place] | | | | | and Healing, | [address] | | | | | [facility], [facility] | [phone] | | | | | Floor [place], [place] | | | | | | [address] | | | | | | [phone] | | | +--------+ + + + [...]
--- OUTSIDE RECORDS SUMMARY | ~2019-10-17 | XMS | Encounter Summary ---
Demographics + + + | Address | [address] | | | [place] [address] | + + + | Home Phone [...] Providers + +------+ + | Care Gauge Maker Name | Role | Phone | + +------+ + | Sulaiman Carrera MD | PCP | | + +------+ + Encounter Details +--------+ + + + + | Date | Type | Department | Care Team | Description | +--------+ + + + + | 10/05/ | Ancillary | Registration 3181 | Ramon Ibarra, | | | 2006 | Registratio | [facility] Naeem Mcrae | [address] [facility] | | | | [address] | [address] Mailcode: [id number] | [place], [place] | | | | | [place], [place] | [address] | | | | | [address] | [phone] | | | | | [phone] | | | +--------+ + + + [...]
--- OUTSIDE RECORDS SUMMARY | ~2019-10-17 | XMS | Encounter Summary ---
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 [id number] Start of Care: 06/23/2006 Referring Provider: [...] and when she is finished at the [facility] with physical therapy advised to become [...] + + +--------+ + + | [place] [facility] | Procedures | Routin | Spondylosis [...]
--- OUTSIDE RECORDS SUMMARY | ~2019-10-17 | XMS | Encounter Summary ---
Demographics + + + | Address | [address] | | | [place] [address] | + + + | Home Phone [...] Providers + +------+ + | Care Tank Car Inspector Name | Role | Phone | [...] [address] | | | | | [place], [place] | [place], [place] | | | | | [address] | [address] | | | | | [phone] | [phone] | | | | | | | [...] DEPARTMENT OF | [address] | [place] [address] | | | PATHOLOGY | [address] | | | + + + + + | [facility] DEPARTMENT OF | [address] | [place] [address] | | | PATHOLOGY | [address] [...] + + | [facility] DEPARTMENT OF | [address] | [place] [address] | | | PATHOLOGY | [address] | | | + + + + + | [facility] DEPARTMENT OF | [address] | [place] [address] | | | PATHOLOGY | [address] [...] Performed At | + + + | [id number] Estimated GFR > 60 mL/min/1.73 sq m if non- | [facility] | | [id number] Estimated GFR > 60 mL/min/1.73 sq m [...] [facility] | [address] | [place] [address] | | | PATHOLOGY | [address] | | | + + + + + | [facility] | [address] | [place] [address] | | | PATHOLOGY | [address] | | | + + + + + documented in this encounter Visit Diagnoses Not on filedocumented in this encounter"
--- OUTSIDE RECORDS SUMMARY | ~2019-10-17 | XMS | Encounter Summary ---
Demographics + + + | Address | [address] | | | [place] [address] | + + + | Home Phone [...] Team Providers + +------+ + | Care Trapper Animal Name | Role | Phone | + +------+ + | [place] Thapa | PCP | | | MD | | | + +------+ + Encounter Details +--------+ + + + + | Date | Type | Department | Care Team | Description | +--------+ + + + + | 07/09/ | Abstract | [facility] | Alanis, | | | 2018 | | MEDICINE [address] | MD [place] | | | | | [address] [facility] | [address] [facility] | | | | | [place] [address] | [place] [address] | | | | | [phone] | | | | | | | [...] | | | | | | [place] [address] | | | | | | [phone] | | | | | | | | +--------+---------+ + + + | 12/20/ | Office | Audiology | Elisabet Munson MS | | | 2019 | Visit | | [facility] [address] | | | | | [address] [place] | | | | | | [place] [address] | | | | | | [phone] | | | | | | | | +--------+---------+ + + + | 12/20/ | Office | Otolaryngology | Ulysses Genao MD | | | 2019 | Visit | | [address] | | | | | | [address] [place], | | | | | | [place] [address] | | | | | | [phone] | | | | | | | [...]
--- OUTSIDE RECORDS SUMMARY | ~2019-10-17 | XMS | Encounter Summary ---
Demographics + + + | Address | [address] | | | [place] [address] [...] Providers + +------+ + | Care Side Hemmer Name | Role | Phone | + [...] + + | 04/25/ | Refill | [facility] | Alanis, | Medication Refill | | 2016 | | MEDICINE [address] [place] [address] | MD [place] | | | | | [facility] | [address] [place] [address] | | | | | [place] [address] | [place] [address] | | | | | [phone] | [phone] | | | | | | | [...] | | | | | [place] [address] | | | | | | [phone] | | | | | | | | +--------+---------+ + + + | 12/20/ | Office | Audiology | Elisabet Munson MS | | | 2019 | Visit | | [facility] [address] | | | | | | [place] [address] [place] | | | | | | [place] [address] | | | | | | [phone] | | | | | | | | +--------+---------+ + + + | 12/20/ | Office | Otolaryngology | Ulysses Genao MD | | | 2020 | Visit | | [address] [facility] | | | | | | [address] [place], | | | | | | [place] [address] | | | | | | [phone] | | | | | | | | +--------+---------+ + + + documented as of this encounter Visit Diagnoses Not on filedocumented in this encounter"
--- OUTSIDE RECORDS SUMMARY | ~2019-10-17 | XMS | Encounter Summary ---
Demographics + + + | Address | [address] | | | [place] [address] | + + + | Home Phone [...] Team Providers + +------+ + | Care Tourist Guide Name | Role | Phone | [...] + | 05/18/ | Refill | [facility] | Alanis, | Medication Refill | | 2016 | | MEDICINE [address] [place] [address] | MD [place] | | | | | [facility] | [address] [place] [address] | | | | | [place] [address] | [place] [address] | | | | | [phone] | [phone] | | | | | | | [...] | | | | | [place] [address] | | | | | | [phone] | | | | | | | | +--------+---------+ + + + | 12/20/ | Office | Audiology | Elisabet Munson MS | | | 2019 | Visit | | [facility] [address] | | | | | | [place] [address] [place] | | | | | | [place] [address] | | | | | | [phone] | | | | | | | | +--------+---------+ + + + | 12/20/ | Office | Otolaryngology | Ulysses Genao MD | | | 2020 | Visit | | [address] [facility] | | | | | | [address] [place], | | | | | | [place] [address] | | | | | | [phone] | | | | | | | | +--------+---------+ + + + documented as of this encounter Visit Diagnoses Not on filedocumented in this encounter"
--- OUTSIDE RECORDS SUMMARY | ~2019-10-17 | XMS | Encounter Summary ---
Demographics + + + | Address | [address] | | | [place] [address] | + + + | Home Phone [...] Team Providers + +------+ + | Care Money Examiner Name | Role | Phone | [...]
--- OUTSIDE RECORDS SUMMARY | ~2019-10-17 | XMS | Encounter Summary ---
Demographics + + + | Address | [address] | | | [place] [address] | + + + | Home Phone [...] + +------+ + | Care Front Office Java Developer Name | Role | Phone | [...] + + | 05/03/ | Telephone | [facility] | Alanis, | Medication Prior | | 2017 | | MEDICINE [address] [place] [address] | MD [place] | Authorization | | | | [facility] | [address] [place] [address] | (Sumatriptan) | | | | [place] [address] | [place] [address] | | | | | [phone] | [phone] | | | | | | | [...] | | | | | [address] [facility] | | | | | | [place] [address] | | | | | | [phone] | | | | | | | | +--------+---------+ + + + | 12/20/ | Office | Audiology | Elisabet Munson MS | | | 2019 | Visit | | [facility] [address] | | | | | | [address] | | | | | | [place] [address] | | | | | | [phone] | | | | | | | | +--------+---------+ + + + | 12/20/ | Office | Otolaryngology | Ulysses Genao MD | | | 2020 | Visit | | [address] [facility] | | | | | | [address] [place], | | | | | | [place] [address] | | | | | | [phone] | | | | | | | | +--------+---------+ + + + documented as of this encounter Visit Diagnoses Not on filedocumented in this encounter"
--- OUTSIDE RECORDS SUMMARY | ~2019-10-17 | XMS | Encounter Summary ---
Demographics + + + | Address | [address] | | | [place] [address] | + + + | Home Phone [...] + +------+ + | Care Plaster Machine Tender Name | Role | Phone [...] + | 06/30/ | Refill | [facility] | Alanis, | Medication Refill | | 2017 | | MEDICINE [address] [place] [address] | MD [place] | | | | | [facility] | [address] [place] [address] | | | | | [place] [address] | [place] [address] | | | | | [phone] | [phone] | | | | | | | [...] | | | | | [place] [address] | | | | | | [phone] | | | | | | | | +--------+---------+ + + + | 12/20/ | Office | Audiology | Elisabet Munson MS | | | 2019 | Visit | | [facility] [address] | | | | | | [place] [address] [place] | | | | | | [place] [address] | | | | | | [phone] | | | | | | | | +--------+---------+ + + + | 12/20/ | Office | Otolaryngology | Ulysses Genao MD | | | 2019 | Visit | | [address] [facility] | | | | | | [address] [place], | | | | | | [place] [address] | | | | | | [phone] | | | | | | | | +--------+---------+ + + + documented as of this encounter Visit Diagnoses + + | Diagnosis | + + | Bronchitis - Primary Bronchitis, not specified as acute or chronic | + + documented in this encounter"
--- OUTSIDE RECORDS SUMMARY | ~2019-10-17 | XMS | Encounter Summary ---
Demographics + + + | Address | [address] | | | [place] [address] | + + + | Home Phone [...] Providers + +------+ + | Care Semiconductor Bonder Name | Role | Phone | [...] + | 09/06/ | Refill | [facility] | Alanis, | Medication Refill | | 2019 | | MEDICINE [address] | MD [place] | | | | | [facility] | [address] [place] [address] | | | | | [place] [address] | [place] [address] | | | | | [phone] | [phone] | | | | | | | [...] | | | | | [place] [address] | | | | | | [phone] | | | | | | | | +--------+---------+ + + + | 12/20/ | Office | Audiology | Elisabet Munson MS | | | 2019 | Visit | | [facility] [address] | | | | | | [place] [address] [place] | | | | | | [place] [address] | | | | | | [phone] | | | | | | | | +--------+---------+ + + + | 12/20/ | Office | Otolaryngology | Ulysses Genao MD | | | 2020 | Visit | | [address] [facility] | | | | | | [address] [place], | | | | | | [place] [address] | | | | | | [phone] | | | | | | | | +--------+---------+ + + + documented as of this encounter Visit Diagnoses Not on filedocumented in this encounter"
--- OUTSIDE RECORDS SUMMARY | ~2019-10-17 | XMS | Encounter Summary ---
Demographics + + + | Address | [address] | | | [place] [address] | + + + | Home Phone [...] Team Providers + +------+ + | Care Reel Repairer Name | Role | Phone | + +------+ + | [place] Thapa | PCP | | | MD | | | + +------+ + Encounter Details +--------+---------+ + + + | Date | Type | Department | Care Team | Description | +--------+---------+ + + + | 12/18/ | Surgery | [facility] | Luther Brito MD | EGD | | 2018 | | MED CTR MP INTRA OP | [address] | | | | | [address] | [place], [place] | | | | | [place], [place] | [address] | | | | | [address] | [phone] | | | | | [phone] | | | +--------+---------+ + + + [...] this encounter Discharge Instructions Instructions Mary Jane Gratn RN - 12/18/2017 Recovery After Procedural Sedation [...] You can't be awakened Date Last Reviewed: 04/01/201619995544-7525 [employer] [place] [address]. All righ ts reserved. This information is [...] | | | | | [place] [address] | | | | | | [phone] | | | | | | | | +--------+---------+ + + + | 12/20/ | Office | Audiology | Elisabet Munson MS | | | 2019 | Visit | | [facility] [address] | | | | | | [address] [place] | | | | | | [place] [address] | | | | | | [phone] | | | | | | | | +--------+---------+ + + + | 12/20/ | Office | Otolaryngology | Ulysses Genao MD | | | 2019 | Visit | | [address] | | | | | | [address] [place], | | | | | | [place] [address] | | | | | | [phone] | | | | | | | [...] 12/18/2017 | [place] | | 10:49 AMMRN: [id number] #: [id number] of : | | | 9Admit Type: AmbulatoryAge: 57Room: [facility] 01Gender: FemaleNote | | | Status: FinalizedAttending MD: Luther Brito , [facility] | | | Upper GI endoscopyIndications: [...] the anesthesiologist and the | | | optical laboratory technician in the pre-procedure area in [...] | appearing mucosa. This was traversed. The cwjjq-uj-cnzyuom limb | | | was characterized by healthy appearing mucosa. The | | | jejunojejunal anastomosis was characterized by healthy | | | appearing mucosa. The cnpxtjok-uo-nvwstgu limb was not examined | | | [...] AMScope Out: | | | 11:08:[address] [facility], [address] | | | [place] [address] | | | - Return to GI [...] |Scope Out: 11:08:34 AM | | | [facility], [address] [place], [place] | | | [address] | | + + -+ + +---------+ + + | Performing | Address | City/State/[facility] Centercode | Phone Number | | [...] 12/18/2017 | [place] | | 10:43 AMMRN: [id number] #: [id number] of : | | | 1960dmit Type: AmbulatoryAge: 57Room: [facility] 01Gender: FemaleNote | | | Status: [...] the anesthesiologist and the | | | optical laboratory technician in the pre-procedure area in [...] Scope In: 11:12:28 AMScope Out: 11:56:57 AM [place] | | | [facility], [address] [place] [address] | | | [phone] | | | - Await pathology results. [...] |Scope Out: 11:56:57 AM | | | [facility], [address] [place] [address] | | | [address] | | + + -+ + +---------+ [...] for specific diagnostic abnormality. | | | JVR:[facility]:C2NR GROSS DESCRIPTION: Received in five parts. [...] | | slide preparation were performed by [facility], [address], [place] [address] (Pizza Cook: Stephen Jacobson, | | | Joanna CLIA#: [id number]). Professional interpretation was performed | | | by [facility], [facility], [address] [place] [address] (Pizza Cook: Stephen Jacobson M.D.; CLIA#: [id number]). Diagnostician: Stephen Khan | | | Kavon [...]
--- OUTSIDE RECORDS SUMMARY | ~2019-10-17 | XMS | Encounter Summary ---
Demographics + + + | Address | [address] | | | [place] [address] | + + + | Home Phone [...] Team Providers + +------+ + | Care Charter Pilot Name | Role | Phone | [...] | | | | L223A Physician's | [place], [place] | | | | | [address] | [address] | | | | | [place], [place] | [phone] | | | | | [address] | | | | | | [phone] | | | +--------+ + + + [...] DEPARTMENT OF | [address] | [place] [address] | | | PATHOLOGY | [address] | | | + + + + + | [facility] DEPARTMENT OF | [address] | [place] [address] | | | PATHOLOGY | [address] [...] | + + + + + | [facility] | [address] | [place] [address] | | | PATHOLOGY | [address] | | | + + + + + | [facility] | [address] | [place] [address] | | | PATHOLOGY | [address] | | | + + + + + documented in this encounter Visit Diagnoses Not on filedocumented in this encounter"
--- OUTSIDE RECORDS SUMMARY | ~2019-10-17 | XMS | Encounter Summary ---
Demographics + + + | Address | [address] | | | [place] [address] | + + + | Home Phone [...] Providers + +------+ + | Care Clean Rice Grader And Reel Tender Name | Role | Phone | [...] Refill Request | | 2008 | | [place] [address] | [address] | (Sucralfate) | | | | Bethanie Mailcode: CH4S | [facility] | | | | | [facility] | [place], [place] | | | | | and [place], | [address] | | | | | [facility] | [phone] | | | | | Floor [place] | | | | | | [address] | | | | | | [phone] | | | +--------+--------+ + + + [...]
--- OUTSIDE RECORDS SUMMARY | ~2019-10-17 | XMS | Encounter Summary ---
Demographics + + + | Address | [address] | | | [place] [address] | + + + | Home Phone [...] | [facility] | | | and [...] Team Providers + +------+ + | Care Roustabout Hand Name | Role | Phone | [...] Acute pain | Emmy-Tajt | [address] | | | | | of right | i, | [place], | | | | | shoulder | [place] | [place] | | | | | Procedures | , MD [address] | [address] | | | | | MRI Shoulder | [address] | Phone: | | | | | Right wo | [place], | [phone] | | | | | Contrast | [place] | Fax: | | | | | | [address] | [phone] | | | | | | Phone: | | | | | | | [phone] | | | | | | | Fax: | | | | | | | [phone] | | +--------+--------+ + + + + [...] Acute pain | Emmy-Tajt | [address] | | | | | of right | i, | [place], | | | | | shoulder | [place] | [place] | | | | | Procedures | , [address] | [address] | | | | | MRI Shoulder | [address] | Phone: | | | | | Right wo | [place], | [phone] | | | | | Contrast | [place] | Fax: | | | | | | [address] | [phone] | | | | | | Phone: | | | | | | | [phone] | | | | | | | Fax: | | | | | | | [phone] | | +--------+--------+ + + + + Encounter Details +--------+ + + + + | Date | Type | Department | Care Team | Description | +--------+ + + + + | 02/17/ | Hospital | [facility] | Emmy-Kamlesh, | Acute pain of right | | 2018 | Encounter | MED CTR MRI [address] | MD [place] | shoulder | | | | [address] [place], | [address] [place] | | | | | [place] [address] | [place] [address] | | | | | [phone] | [phone] | | | | | | | [...] | | | | | [place] [address] | | | | | | [phone] | | | | | | | | +--------+---------+ + + + | 12/20/ | Office | Audiology | Elisabet Munson MS | | | 2019 | Visit | | [facility] [address] | | | | | [address] [place] | | | | | | [place] [address] | | | | | | [phone] | | | | | | | | +--------+---------+ + + + | 12/20/ | Office | Otolaryngology | Ulysses Gneao MD | | | 2019 | Visit | | [address] | | | | | | [address] [place], | | | | | | [place] [address] | | | | | | [phone] | | | | | | | [...]
--- OUTSIDE RECORDS SUMMARY | ~2019-10-17 | XMS | Encounter Summary ---
Demographics + + + | Address | [address] | | | [place] [address] | + + + | Home Phone [...] Team Providers + +------+ + | Care Bottling Line Operator Name | Role | Phone [...] | | | | L223A Physician's | [place], [place] | | | | | [address] | [address] | | | | | [place], [place] | [phone] | | | | | [address] | | | | | | [phone] | | | +--------+ + + + [...] + | Performing | Address | City/State/[facility] Ranchocode | Phone Number | | Organization | | | | + +---------+ + + | [facility] DEPARTMENT OF | | | [...]
--- OUTSIDE RECORDS SUMMARY | ~2019-10-17 | XMS | Encounter Summary ---
Demographics + + + | Address | [address] | | | [place] [address] | + + + | Home Phone [...] Team Providers + +------+ + | Care Lion Hunter Name | Role | Phone | + [...] [address]aeem Clementina | | | | | [facility] | [place], [place] | | | | | and Healing, | [address] | | | | | [place] [address], [facility] | [phone] | | | | | Floor [place], [place] | | | | | | [address] | | | | | | [phone] | | | +--------+ + + + [...]
--- OUTSIDE RECORDS SUMMARY | ~2019-10-17 | XMS | Encounter Summary ---
Demographics + + + | Address | [address] | | | [place] [address] | + + + | Home Phone [...] Team Providers + +------+ + | Care Lute Packer Or Applier Name | Role | Phone | [...] Rehabilitatio | syndrome of | i, | [place] | | | | n | right | [place] | [place], | | | | | shoulder | , [address] | [place] [address] | | | | | Procedures | [address] | Phone: | | | | | PT | [place], | [phone] | | | | | | [place] | Fax: | | | | | | [address] | [phone] | | | | | | Phone: | | | | | | | [phone] | | | | | | | Fax: | | | | | | | [phone] | | +--------+ + + + + [...] + + | 09/22/ | Office | [facility] | Alanis, | Impingement syndrome | | 2018 | Visit | MEDICINE [address] | MD [place] | of right shoulder | | | | Street [place] | [address] [place] | (Primary Dx); Chest | | | | [place] [address] | [place] [address] | pain, unspecified | | | | [phone] | [phone] | type | | | | | [...] spasm Myalgia Nonalcoholic hepatosteatosis Obesity Opioid dependence ([facility]) [...] CUFF REPAIR 2004 SPINE SURGERY TONSILLECTOMY 1964 CURRENT MEDICATIONS Current [...] (See Comments) Confused and questionable for seizures Ykdyhdqyss-Intr-Yujdlwkz Cephalexin Hives Duloxetine Migraines and nausea Ketorolac Hives Morphine Swelling Ropinirole Hcl Hives Tramadol Hcl Nausea Only Dcnzijzkfy-Rhyc-Cmbhpfym Hives and Rash Ciprofloxacin Hives and Rash [...] Right 2 + Vw; Future - * [facility] Physical Therapy - AMB Referral; Future 2. Chest pain, unspecified type - nitroglycerin (NITROSTAT) 0.4 mg SL tablet; Place 1 tablet under the tongue every 5 minut es as needed for Chest pain. Dispense: 25 tablet; Refill: 3 FOLLOW-UP Return in about 6 months (around 03/24/2018). Note: Parts of this documentwere created using [employer] speech recognition software. As a r esult, there may be unintended word spelling errors. Every attempt was made to correct the dictation. INdoshantelle colin in this encounter Plan of [...] | | | | | [place] [address] | | | | | | [phone] | | | | | | | | +--------+---------+ + + + | 12/20/ | Office | Audiology | Elisabet Munson MS | | | 2019 | Visit | | [facility] [address] | | | | [address] [place] | | | | | | [place] [address] | | | | | | [phone] | | | | | | | | +--------+---------+ + + + | 12/20/ | Office | Otolaryngology | Ulysses Genao MD | | | 2019 | Visit | | [address] | | | | | | [address] [place], | | | | | | [place] [address] | | | | | | [phone] | | | | | | | [...]
--- OUTSIDE RECORDS SUMMARY | ~2019-10-17 | XMS | Encounter Summary ---
Demographics + + + | Address | [address] | | | [place] [address] | + + + | Home Phone [...] Providers + +------+ + | Care Concrete Mixing Truck Driver Name | Role | Phone [...] as of this encounter Progress Notes Interface, Dock Loader In - 01/12/2005 8:09 AM PDT [id number] [facility] Date: 02/27/2004 Clinic: [facility] Subjective: The patient underwent gastric bypass surgery in November 2003 under the care of Dr. Chris Padgett here at [facility]. She has been doing well after [...] been scheduled through the Sleep Clinic in [place]. Medications 1. Ranitidine 150 mg p.o. b.i.d. [...] months. Issac Meeks M.D. MONIQUE / SHARIF [id number] / [id number] / [id number] / cc: Joanna Arshad M.D. [address] [facility] [place] [address] documented i n this encounter Plan of Treatment Not on filedocumented as of this encounter Visit Diagnoses Not on filedocumented in this encounter"
--- OUTSIDE RECORDS SUMMARY | ~2019-10-17 | XMS | Encounter Summary ---
Demographics + + + | Address | [address] | | | [place] [address] | + + + | Home Phone [...] Team Providers + +------+ + | Care Esl Instructional Assistant Name | Role | Phone | [...] + + | 08/24/ | Telephone | [facility] | Alanis, | Toe Pain | | 2019 | | MEDICINE [address] [place] [address] | MD [place] | | | | | [facility] | [address] [place] [address] | | | | | [place] [address] | [place] [address] | | | | | [phone] | [phone] | | | | | | | [...] | | | | | [place] [address] | | | | | | [phone] | | | | | | | | +--------+---------+ + + + | 12/20/ | Office | Audiology | Elisabet Munson MS | | | 2019 | Visit | | [facility] [address] | | | | | | [place] [address] [place] | | | | | | [place] [address] | | | | | | [phone] | | | | | | | | +--------+---------+ + + + | 12/20/ | Office | Otolaryngology | Ulysses Genao MD | | | 2019 | Visit | | [address] [place] | | | | | | [address] [place], | | | | | | [place] [address] | | | | | | [phone] | | | | | | | [...]
--- OUTSIDE RECORDS SUMMARY | ~2019-10-17 | XMS | Encounter Summary ---
Demographics + + + | Address | [address] | | | [place] [address] [...] Providers + +------+ + | Care Painter Touch Up Name | Role | Phone | + [...] + + | 04/06/ | Telephone | [facility] | Alanis, | Care Coordination | | 2017 | | MEDICINE [address] [place] [address] | MD [place] | | | | | [facility] | [address] [place] [address] | | | | | [place] [address] | [place] [address] | | | | | [phone] | [phone] | | | | | | | [...] | | | | | [address] [facility] | | | | | | [place] [address] | | | | | | [phone] | | | | | | | | +--------+---------+ + + + | 12/20/ | Office | Audiology | Elisabet Munson MS | | | 2019 | Visit | | [facility] | | | | | | [address] | | | | | | [place] [address] | | | | | | [phone] | | | | | | | | +--------+---------+ + + + | 12/20/ | Office | Otolaryngology | Ulysses Genao MD | | | 2020 | Visit | | [address] [facility] | | | | | | [address] [place], | | | | | | [place] [address] | | | | | | [phone] | | | | | | | | +--------+---------+ + + + documented as of this encounter Visit Diagnoses Not on filedocumented in this encounter"
--- OUTSIDE RECORDS SUMMARY | ~2019-10-17 | XMS | Encounter Summary ---
Demographics + + + | Address | [address] | | | [place] [address] | + + + | Home Phone [...] Team Providers + +------+ + | Care Ball Mill Mixer Name | Role | Phone | [...] as of this encounter Progress Notes Interface, Antenna Design Engineer In - 02/17/2006 3:04 AM [facility] [place] [address] [place] [address] or October 02, 2001 Pedrito Gutierrez M.D. [facility] [address] [place] [address] RE: BELINDA GALARZA MR #: [id number] Dear Dr. 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 Sincerely, Issac Meeks M.D. utility tender carding, Division of Endocrinology, Diabetes, and Clinical Lining Machine Operator, Metabolic Disorders Clinic Ph#: [phone] [facility] / [id number] / [id number] / [id number] / C: 10/13/2001 praful [id number] signed by Interface, Antenna Design Engineer In at 02/17/2006 3:04 AM [facility] umented in this encounter Plan of Treatment Not on filedocumented as of this encounter Visit Diagnoses Not on filedocumented in this encounter"
--- OUTSIDE RECORDS SUMMARY | ~2019-10-17 | XMS | Encounter Summary ---
Demographics + + + | Address | [address] | | | [place] [address] | + + + | Home Phone [...] Team Providers + +------+ + | Care Floater Operator Name | Role | Phone | + +------+ + | Maria Esther Cintron MD | PCP | | + +------+ + Encounter Details +--------+ + + + + | Date | Type | Department | Care Team | Description | +--------+ + + + + | 02/16/ | Telephone | [facility] | Chris Padgett, | | | 2007 | | [place] [address] | [address] [facility] | | | | | Bethanie Mailcode: CH4S | [address] | | | | | [facility] | [place], [place] | | | | | and Healing, | [address] | | | | | Building , 6th | [phone] | | | | | Floor [place], [place] | | | | | | [address] | | | | | | [phone] | | | +--------+ + + + [...]
--- OUTSIDE RECORDS SUMMARY | ~2019-10-17 | XMS | Encounter Summary ---
Demographics + + + | Address | [address] | | | [place] [address] | + + + | Home Phone [...] Providers + +------+ + | Care Highway Design Engineer Name | Role | Phone [...] + + | 07/16/ | Telephone | [facility] | Alanis, | Results, Imaging | | 2017 | | MEDICINE [address] | MD [place] | | | | | [facility] | [address] [place] [address] | | | | | [place] [address] | [place] [address] | | | | | [phone] | [phone] | | | | | | | [...] [place]ABRIEL | | | | | | [place] [address] | | | | | | [phone] | | | | | | | | +--------+---------+ + + + | 12/20/ | Office | Audiology | Elisabet Munson MS | | | 2019 | Visit | | [facility] [address] | | | | | | [place] [address] [place] | | | | | | [place] [address] | | | | | | [phone] | | | | | | | | +--------+---------+ + + + | 12/20/ | Office | Otolaryngology | Ulysses Genao MD | | | 2020 | Visit | | [address] [facility] | | | | | | [address] [place], | | | | | | [place] [address] | | | | | | [phone] | | | | | | | | +--------+---------+ + + + documented as of this encounter Visit Diagnoses Not on filedocumented in this encounter"
--- OUTSIDE RECORDS SUMMARY | ~2019-10-17 | XMS | Encounter Summary ---
Demographics + + + | Address | [address] | | | [place] [address] | + + + | Home Phone [...] Providers + +------+ + | Care Assessment Expert Name | Role | Phone | [...] as of this encounter Progress Notes Interface, Geophysical Manager In - 01/11/2005 6:26 PM PDTClinic Date: [...] schedule her for a gastric bypass surgery. Dwaine Al M.D. LEDY / [id number] / [id number] / [id number] / Tdocumented in this encounter Plan of Treatment Not on filedocumented as of this encounter Visit Diagnoses Not on filedocumented in this encounter"
--- OUTSIDE RECORDS SUMMARY | ~2019-10-17 | XMS | Encounter Summary ---
Demographics + + + | Address | [address] | | | [place] [address] | + + + | Home Phone [...] Team Providers + +------+ + | Care Fraud Analyst Name | Role | Phone | + +------+ + | [place] Thapa | PCP | | | MD | | | + +------+ + Reason for Visit + + + | Reason | Comments | + + + | Results, Imaging | outside imaging report from [facility] | + + + Encounter Details +--------+ + + + + | Date | Type | Department | Care Team | Description | +--------+ + + + + | 03/02/ | Telephone | [facility] | Alanis, | Results, Imaging | | 2019 | | MEDICINE [address] | MD [place] | (outside imaging | | | | Street [place] | [address] [facility] | report from St. | | | | [place] [address] | [place] [address] | [facility]) | | | | [phone] | [phone] | | | | | | | [...] | | | | | [place] [address] | | | | | | [phone] | | | | | | | | +--------+---------+ + + + | 12/20/ | Office | Audiology | Elisabet Munson MS | | | 2019 | Visit | | [facility] [address] | | | | [address] [place] | | | | | | [place] [address] | | | | | | [phone] | | | | | | | | +--------+---------+ + + + | 12/20/ | Office | Otolaryngology | Ulysses Genao MD | | | 2019 | Visit | | [address] | | | | | | [address] [place], | | | | | | [place] [address] | | | | | | [phone] | | | | | | | | +--------+---------+ + + + documented as of this encounter Visit Diagnoses Not on filedocumented in this encounter"
--- OUTSIDE RECORDS SUMMARY | ~2019-10-17 | XMS | Encounter Summary ---
Demographics + + + | Address | [address] | | | [place] [address] | + + + | Home Phone [...] Providers + +------+ + | Care Surgical Assistant Certified Name | Role | Phone | + [...] + + | 10/07/ | Telephone | [facility] | Alanis, | Hip Pain | | 2017 | | MEDICINE [address] [place] [address] | MD Petrona | | | | | [facility] | [address] [place] [address] | | | | | [place] [address] | [place] [address] | | | | | [phone] | [phone] | | | | | | | [...] | | | | | [place] [address] | | | | | | [phone] | | | | | | | | +--------+---------+ + + + | 12/20/ | Office | Audiology | Elisabet Munson MS | | | 2019 | Visit | | [facility] [address] | | | | | | [place] [address] [place] | | | | | | [place] [address] | | | | | | [phone] | | | | | | | | +--------+---------+ + + + | 12/20/ | Office | Otolaryngology | Ulysses Genao MD | | | 2020 | Visit | | [address] [facility] | | | | | | [address] [place], | | | | | | [place] [address] | | | | | | [phone] | | | | | | | | +--------+---------+ + + + documented as of this encounter Visit Diagnoses Not on filedocumented in this encounter"
--- OUTSIDE RECORDS SUMMARY | ~2019-10-17 | XMS | Encounter Summary ---
Demographics + + + | Address | [address] | | | [place] [address] | + + + | Home Phone [...] + + | 06/25/ | Telephone | [facility] | Alanis, | Illness | | 2018 | | MEDICINE [address] [place] [address] | MD Petrona | | | | | [facility] | [address] [place] [address] | | | | | [place] [address] | [place] [address] | | | | | [phone] | [phone] | | | | | | | [...] | | | | | [place] [address] | | | | | | [phone] | | | | | | | | +--------+---------+ + + + | 12/20/ | Office | Audiology | Elisabet Munson MS | | | 2019 | Visit | | [facility] [address] | | | | | | [place] [address] [place] | | | | | | [place] [address] | | | | | | [phone] | | | | | | | | +--------+---------+ + + + | 12/20/ | Office | Otolaryngology | Ulysses Genao MD | | | 2020 | Visit | | [address] [facility] | | | | | | [address] [place], | | | | | | [place] [address] | | | | | | [phone] | | | | | | | | +--------+---------+ + + + documented as of this encounter Visit Diagnoses Not on filedocumented in this encounter"
--- OUTSIDE RECORDS SUMMARY | ~2019-10-17 | XMS | Encounter Summary ---
Demographics + + + | Address | [address] | | | [place] [address] | + + + | Home Phone [...] Providers + +------+ + | Care Hospital Cleaning Specialist Name | Role | Phone | + +------+ + | Petorna Thapa | PCP | | | MD [...] + + | 10/18/ | Telephone | [facility] | Ulysses Genao MD | Appointment (MRI) | | 2014 | | OTOLARYNGOLOGY [address] | [address] [facility] | | | | | [address] [facility] [address] | [address] [place], | | | | | [place] | [place] [address] | | | | | [address] | [phone] | | | | | [phone] | | | +--------+ + + + [...] | | | | | [place] [address] | | | | | | [phone] | | | | | | | | +--------+---------+ + + + | 12/20/ | Office | Audiology | Elisabet Munson MS | | | 2019 | Visit | | [facility] [address] | | | | | | [address] [place] | | | | | | [place] [address] | | | | | | [phone] | | | | | | | | +--------+---------+ + + + | 12/20/ | Office | Otolaryngology | Ulysses Genao MD | | | 2019 | Visit | | [address] [place] | | | | | | [address] [place], | | | | | | [place] [address] | | | | | | [phone] | | | | | | | | +--------+---------+ + + + documented as of this encounter Visit Diagnoses Not on filedocumented in this encounter"
--- OUTSIDE RECORDS SUMMARY | ~2019-10-17 | XMS | Encounter Summary ---
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 PROGRESS NOTE: Physical Therapy Medicare Progress Note Date: 08/05/2006 Belinda Molly Shefali [id number]. [id number] Start of Care: 06/23/2006 Referring Provider: [...] keep hydrated, went to the ED in [place] and was sent home by the M.DYudy There without a ny treatment and advised by him to contact the pain clinic. Patient did not some relief with her last treatment, and continues her exercises consistent ly. She is walking daily at [facility] for 15-20 minutes, sitting X 60 [...] + + +--------+ + + | [place] MANUAL THER | Procedures | Routin | [...] + + +--------+ + + | OR THERAPEUTIC | Procedures | Routin | Cervical [...] + + +--------+ + + | OR THERAPEUTIC | Procedures | Routin | Cervical [...]
--- OUTSIDE RECORDS SUMMARY | ~2019-10-17 | XMS | Encounter Summary ---
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 female [facility] Comprehensive Pain Center Return [...] be ing reviewed by Dr Constantino SHEEHAN farm machinery assembler. MRI of the brain and it was normal A Brief Pain Inventory and a pain drawing has be completed, which I reviewed. [facility] Brief Pain Inventory: (ten= worst possible [...] Ogden PhD TPI every 5-6 months with [facility] Rheumatology Hilda Saenz Review [...] history, fam bijan history, or social history. [facility] Encorinology [facility] ACNP ThuNovember 12, 2007 Assessment: [...] continue to discuss with her options at [facility] with, hopefully, coordinatio n of services. RTC in 3 mos, earlier if problems. Case discussed with Dr. Meeks who examined patient and agrees with above. Edy Stephesn MD Fellow, Endocrinology and Metabolism Current outpatient prescriptions Medication Sig Dispense Refill aspirin chewable (BABY ASPIRIN) 81 mg Oral Tablet, Chewable 2 daily buPROPion XL (WELLBUTRIN XL) 300 mg Oral Tablet Sustained Release 24 hr take 1 tablet ( 300 mg) by oral route once daily wapfhrroca-szscwqqdjmmvh-bbmogdpo (FIORICET) 50-325-40 mg Oral Tablet take 2 [...] DISK BULGE. Transcribed By: Armaan Mata : [id number] : 1442 Approved By: Radiologist: Physical Examination: [...] with any concerns or questions. DELFINA MOLINA [facility] Mail code CH 4P [facility] [address] [place] [address] Ailyn Foster - 03/03/20 08 10:24 [...]
--- OUTSIDE RECORDS SUMMARY | ~2019-10-17 | XMS | Encounter Summary ---
Demographics + + + | Address | [address] | | | [place] [address] | + + + | Home Phone [...] Providers + +------+ + | Care Bearing Grinder Name | Role | Phone | + +------+ + | Pedrito Gutierrez MD | PCP | | + +------+ + Encounter Details +--------+ + + + + | Date | Type | Department | Care Team | Description | +--------+ + + + + | 08/04/ | Telephone | [facility] | Chris Padgett, | | | 2006 | | [place] [address] | [address] [facility] | | | | | [place] Mailcode: CH4S | [facility] | | | | | Center for Health | [place], [place] | | | | | and Healing, | [address] | | | | | Building | [phone] | | | | | Floor [place], [place] | | | | | | [address] | | | | | | [phone] | | | +--------+ + + + [...]
--- OUTSIDE RECORDS SUMMARY | ~2019-10-17 | XMS | Encounter Summary ---
Demographics + + + | Address | [address] | | | [place] [address] | + + + | Home Phone [...] Team Providers + +------+ + | Care Chimney Builder Name | Role | Phone | [...] + | 09/04/ | Refill | [facility] | Alanis, | Medication Refill | | 2019 | | MEDICINE [address] | MD Petrona | | | | | [facility] | [address] [place] [address] | | | | | [place] [address] | [place] [address] | | | | | [phone] | [phone] | | | | | | | [...] | | | | | [place] [address] | | | | | | [phone] | | | | | | | | +--------+---------+ + + + | 12/20/ | Office | Audiology | Elisabet Munson MS | | | 2019 | Visit | | [facility] [address] | | | | | | [place] [address] [place] | | | | | | [place] [address] | | | | | | [phone] | | | | | | | | +--------+---------+ + + + | 12/20/ | Office | Otolaryngology | Ulysses Genao MD | | | 2020 | Visit | | [address] [facility] | | | | | | [address] [place], | | | | | | [place] [address] | | | | | | [phone] | | | | | | | | +--------+---------+ + + + documented as of this encounter Visit Diagnoses Not on filedocumented in this encounter"
--- OUTSIDE RECORDS SUMMARY | ~2019-10-17 | XMS | Encounter Summary ---
Demographics + + + | Address | [address] | | | [place] [address] | + + + | Home Phone [...] Providers + +------+ + | Care Paper Cutter Operator Name | Role | Phone | [...] | | 2006 | | [facility] | MD Darrion,PhD [address] | | | | | for Health and | [address] | | | | | Healing [address] | [place], [place] | | | | | Ave Mailcode: | [address] | | | | | CH12A [facility] | [phone] | | | | | Health and Healing, | | | | | | [facility] | | | | | | [place], [place] | | | | | | [address] | | | | | | [phone] | | | +--------+ + + + [...]
--- OUTSIDE RECORDS SUMMARY | ~2019-10-17 | XMS | Encounter Summary ---
Demographics + + + | Address | [address] | | | [place] [address] | + + + | Home Phone [...] Team Providers + +------+ + | Care Camera Operator Name | Role | Phone | [...] | ANP | | | | | [facility] | | | | | | [address] [place] | | | | | | Mailcode: CH15P | | | | | | [facility] | | | | | | and Healing, | | | | | | Building | | | | | | Floor [place], [place] | | | | | | [address] | | | | | | [phone] | | | +--------+ + + + [...]
--- OUTSIDE RECORDS SUMMARY | ~2019-10-17 | XMS | Encounter Summary ---
Demographics + + + | Address | [address] | | | [place] [address] | + + + | Home Phone [...] Providers + +------+ + | Care Operator Receptionist Name | Role | Phone | [...] Pavilion | | | | | | [place], [place] | | | | | | [address] | | | | | | [phone] | | | +--------+ + + + [...]
--- OUTSIDE RECORDS SUMMARY | ~2019-10-17 | XMS | Encounter Summary ---
Demographics + + + | Address | [address] | | | [place] [address] | + + + | Home Phone [...] Providers + +------+ + | Care Hospital Coordinator Name | Role | Phone | [...] 03/31/ | Office | [facility] Center at [facility] | Lukasz Charles, | Major Depressive | | 2006 | Visit | [address] | PhD [address] | Disorder, Recurrent | | | | Mailcode: CH15P | [place], [place] | Episode, Moderate | | | | [facility] | [address] | ([facility]); Spondylosis | | | | and Healing, | [phone] | with Myelopathy, | | | | Building | | Lumbar Region; Left | | | | Floor [place], [place] | | Knee Pain; | | | | [address] | | Fibromyalgia | | | | [phone] | | syndrome 729.1; | | | [...] ab out her next knee surgery. Diagnosis: [place] I: 1. (296.32) Major depressive disorder, recurrent, moderate. 2. (309.24) Adjustment disorder with anxiety. 3. 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 [place] II: Deferred [place] III: abdominal pain, migraine headache, low back pain. [place] IV: low finances [place] V: GAF 55-60 Plan: Return with next medical follow-up appointment. Check mood, knee surgery, pacing, relaxati on, activity, distraction. Continue cognitive/behavioral therapy. Discuss need for further sessions. Total time spent with patient was approximately 45 minutes. LUKASZ CHARLES PHD [facility] [address] [facility], [address] [place] [address] documented in this encount er Plan of [...]
--- OUTSIDE RECORDS SUMMARY | ~2019-10-17 | XMS | Encounter Summary ---
Demographics + + + | Address | [address] | | | [place] [address] | + + + | Home Phone [...] + +------+ + | Care Information Technology Security Analyst Name | Role | Phone [...] + + | 09/14/ | Telephone | [facility] | Alanis, | Referral | | 2017 | | MEDICINE [address] [place] [address] | MD Petrona | | | | | [facility] | [address] [place] [address] | | | | | [place] [address] | [place] [address] | | | | | [phone] | [phone] | | | | | | | [...] | | | | | [place] [address] | | | | | | [phone] | | | | | | | | +--------+---------+ + + + | 12/20/ | Office | Audiology | Elisabet Munson MS | | | 2019 | Visit | | [facility] [address] | | | | | | [address] [place] [address] [place] | | | | | | [place] [address] | | | | | | [phone] | | | | | | | | +--------+---------+ + + + | 12/20/ | Office | Otolaryngology | Ulysses Genao MD | | | 2020 | Visit | | [address] [facility] | | | | | | [address] [place], | | | | | | [place] [address] | | | | | | [phone] | | | | | | | | +--------+---------+ + + + documented as of this encounter Visit Diagnoses Not on filedocumented in this encounter"
--- OUTSIDE RECORDS SUMMARY | ~2019-10-17 | XMS | Encounter Summary ---
Demographics + + + | Address | [address] | | | [place] [address] | + + + | Home Phone [...] Providers + +------+ + | Care Gang Drill Press Operator Name | Role | [...] + + | 11/23/ | Office | [facility] [...] Encounter for | | | | Floor [place], [place] | | Long-Term (Current) | | | | [address] | | Use of Opioids; | | | | [phone] | | Major Depressive | | | | | | Disorder, Recurrent | | | | | | Episode, Moderate | | | | | | ([facility]); Adjustment | | | | | [...] drawing has be completed, which I reviewed. [facility] Brief Pain Inventory: Right Now: 9 [...] Result Impression NAME: BELINDA MEEHAN MR #: [id number] DATE OF EXAM: [id number] PHYSICIAN: EMMA ROJAS [...] DISK BULGE. Transcribed By: Armaan Mata : [id number] : 1442 Approved By: Radiologist: Physical Examination: [...] seeing Nathalia Arora PT here at the [facility] to address her back pain [...] vs Hernia. 6. PT here at the [facility] available 7. Repeat TESI as needed. DELFINA MOLINA [facility] Mail code CH 4P [facility] and [address] [address] JasenTy montilla - 9:12 AM [...]
--- OUTSIDE RECORDS SUMMARY | ~2019-10-17 | XMS | Encounter Summary ---
Demographics + + + | Address | [address] | | | [place] [address] | + + + | Home Phone [...] Team Providers + +------+ + | Care Insole Stiffener Name | Role | Phone | + [...] | | | | [place], | [address] | | | | | | [place] | Phone: | | | | | | [address] | [phone] | | | | | | Phone: | Fax: | | | | | | [phone] | [phone] | | | | | | Fax: | | | | | | | [phone] | | +--------+ + + + + + Reason for Visit +--------+ + | Reason | Comments | +--------+ + | Other | bladder/ bowel issues | +--------+ + Encounter Details +--------+---------+ + + + | Date | Type | Department | Care Team | Description | +--------+---------+ + + + | 10/15/ | Office | [facility] | Alanis, | Mixed stress and | | 2017 | Visit | MEDICINE [address] [place] [address] | MD Petrona | urge urinary | | | | [facility] | [address] [place] [address] | incontinence | | | | [place] [address] | [place] [address] | (Primary Dx); OLIVER | | | | [phone] | [phone] | (obstructive sleep | | | | [...] Patient presents with Other bladder/ bowel issues [facility] Belinda Meehan is a 57 y.o. y/o [...] with myelopathy, lumbar region Stroke ([facility]) Syncope Tremor Type II or [...] 1,000 mcg 1,000 mcg Intramuscular Q30 Days [facility] Maddie Thapa MD 1,000 mcg at 10/15/17 1149 ALLERGIES Allergies Allergen Reactions Codeine Sulfate Nausea Only Levofloxacin Hives, Itching and Rash Amitriptyline Hcl Other (See Comments) Confused and questionable for seizures Vwoplchckj-Ahap-Vctfstom Cephalexin Hives Duloxetine Migraines and nausea Ketorolac Hives Morphine Swelling Ropinirole Hcl Hives Tramadol Hcl Nausea Only Dizikvgbio-Rizp-Innjdfvq Hives and Rash Ciprofloxacin Hives and Rash [...] warrant a GI consult. - * [facility] Gastroenterology - AMB Referral; Future 5. S/P gastric bypass - * [facility] G[facility]ology - AMB Referral; Future 6. Nausea - ondansetron (ZOFRAN ODT) 4 mg disintegrating tablet; Take 1 tablet by mouth every 6 hours . Dispense: 120 tablet; Refill: 3 FOLLOW-UP Return in about 3 months (around 01/15/2018). Note: Parts of this documentwere created using [employer] speech recognition software. As a r esult, [...] | | | | | [place] [address] | | | | | | [phone] | | | | | | | | +--------+---------+ + + + | 12/20/ | Office | Audiology | Elisabet Munson MS | | | 2019 | Visit | | [facility] [address] | | | | | | [address] [place] | | | | | | [place] [address] | | | | | | [phone] | | | | | | | | +--------+---------+ + + + | 12/20/ | Office | Otolaryngology | Ulysses Genao MD | | | 2019 | Visit | | [address] | | | | | | [address] [place], | | | | | | [place] [address] | | | | | | [phone] | | | | | | | [...] | | | | First dose on [facility] 10/15/17 at 1215 | | [...]
--- OUTSIDE RECORDS SUMMARY | ~2019-10-17 | XMS | Encounter Summary ---
Demographics + + + | Address | [address] | | | [place] [address] | + + + | Home Phone [...] Team Providers + +------+ + | Care Roofer Vinyl Coating Name | Role | Phone | + [...] | Procedures | [address] | [place] | | | | | CONSULT TO | [facility] | [address] | | | | | GI PROCEDURE | Rd | floor | | | | | UNIT: SM | [place], [place] | [place], [place] | | | | | [place] | [address] | [address] | | | | | [place] | Phone: | Phone: | | | | | ENDOSCOPY | [phone] | [phone] | | | | | | | Fax: | | | | | | | [phone] | +--------+--------+ + + + + Consultation [...] | | | | Procedures | [facility] | [place], [place] | | | | | CONSULT TO | Rd | [address] | | | | | PAIN CENTER | [place], [place] | | | | | | | [address] | | | | | | | Phone: | | | | | | | [phone] | | +--------+--------+ + + + + Encounter Details +--------+---------+ + + + | Date | Type | Department | Care Team | Description | +--------+---------+ + + + | 04/07/ | Office | [facility] Division of | Carlos Arreola, | Iron Deficiency; | | 2005 | Visit | Gastroenterology/Hep | [address] | Chronic Abdominal | | | | atology [address] | [facility] | Pain | | | | [address] | [place] [address] | | | | | Mailcode: PV310 | [phone] | | | | | [facility] | | | | | | [address] | | | | | | [place], [place] | | | | | | [address] | | | | | | [phone] | | | +--------+---------+ + + + [...] December reviewed and normal (past ed below). [facility] labs received and reviewed: neg O&P UPPER [...] HEPATIS NODES. Transcribed By: Armaan Rivera : [id number] : 1224 Approved By: CT ABDOMEN AND [...] HEPATIS NODES. Transcribed By: Armaan Mata : [id number] : 1224 Approved By: Carlos [place] - 3:59 PM PDTPt seen previously seen by nm for chronic pain and PK, returns to [...]
--- OUTSIDE RECORDS SUMMARY | ~2019-10-17 | XMS | Encounter Summary ---
Demographics + + + | Address | [address] | | | [place] [address] | + + + | Home Phone [...] Padgett, | | | 2010 | | [place] [address] | [address] [facility] | | | | | [place] Mailcode: CH4S | [address] | | | | | Center for Health | [place], [place] | | | | | and Healing, | [address] | | | | | Building , 6th | [phone] | | | | | Floor [place], [place] | | | | | | [address] | | | | | | [phone] | | | +--------+ + + + [...]
--- OUTSIDE RECORDS SUMMARY | ~2019-10-17 | XMS | Encounter Summary ---
Demographics + + + | Address | [address] | | | [place] [address] | + + + | Home Phone [...] Providers + +------+ + | Care Ship Liner Name | Role | Phone | [...] | Procedures | [address] | Ashe | | | | | CONSULT TO | Naeem Mcrae | [address] | | | | | GI PROCEDURE | Rd | floor | | | | | UNIT: EGD | [place], [place] | [place], [place] | | | | | | [address] | [address] | | | | | | Phone: | Phone: | | | | | | [phone] | [phone] | | | | | | | Fax: | | | | | | | [phone] | +--------+--------+ + + + + Consultation [...] | | | | | UNIT: | [place] | | | | | COLONOSCOPY | [address] | [address] | | | | | | Phone: | Phone: | | | | | | [phone] | [phone] | | | | | | | Fax: | | | | | | | [phone] | +--------+--------+ + + + + Reason [...] + + | 03/10/ | Office | [facility] Division of | Carlos Arreola, | Chronic Abdominal | | 2005 | Visit | Gastroenterology/Hep | MD [address] | Pain; Iron | | | | atology [address] | Deficiency | | | | [address] | [place] [address] | | | | | Mailcode: [id number] | [phone] | | | | | [facility] | | | | | | [address] | | | | | | [place], [place] | | | | | | [address] | | | | | | [phone] | | | +--------+---------+ + + + [...] so by calling and asking for my fws faculty assistant Cierra Alexis. I always do my [...] other questions or issues. Carlos Arreola MD. [facility] Division Of Gastroenterology/Hepatology [address] [place] [address] [place] [address] documented in this encounter Progress Anup Plascencia [...] y.o. 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 Lost 200lbs psot bypass surgery, has [...] [facility] | [address] | [place] [address] | | | PATHOLOGY | [address] | | | + + + + + | [facility] | [address] | [place] [address] | | | PATHOLOGY | [address] [...] + | [facility] | [address] [facility] | [place] [address] | | | PATHOLOGY | [address] | | | + + + + + | [facility] | [address] [facility] | [place] [address] | | | PATHOLOGY | [address] [...] [facility] DEPARTMENT [facility] | [address] | [place] [address] | | | PATHOLOGY | [address] | | | + + + + + | [facility] | [facility] [address] | [place] [address] | | | PATHOLOGY | [address] [...] DEPARTMENT OF | [address] | [place] [address] | | | PATHOLOGY | [address] | | | + + + + + | [facility] | [address] | [place] [address] | | | PATHOLOGY | [address] [...] | | | | | [facility]. | | | | + + + + + + + + | Specimen | + + | | + + + + + + + | Performing | Address | City/State/Zipcode | Phone Number | | Organization | | | | + + + + + | [facility] | [address] | [place] [address] | | | LABORATORY | | | [...] | | | | | performed at [place] | | | | | | [facility] | | | | | | Laboratory | | | | + + + + + + + + | Specimen | + + | | + + + + + + + | Performing | Address | City/State/Zipcode | Phone Number | | Organization | | | | + + + + + | [facility] | [address] | [place] [address] | | | LABORATORY | | | | + + + + + documented in this encounter Visit Diagnoses + + | Diagnosis | + + | Chronic abdominal pain Abdominal pain, unspecified site | + + | Iron deficiency Other disorders of iron metabolism | + + documented in this encounter"
--- OUTSIDE RECORDS SUMMARY | ~2019-10-17 | XMS | Encounter Summary ---
Demographics + + + | Address | [address] | | | [place] [address] | + + + | Home Phone [...] + +------+ + | Care Corporate Quality Engineer Name | Role | Phone | + +------+ + PCP | Unavailable | + +------+ + Encounter Details +--------+ + + + + | Date | Type | Department | Care Team | Description | +--------+ + + + + | 08/09/ | Results | | Other, Faculty | | | 2002 | Only | | [phone] | | +--------+ + + + + [...] + | Ordered by [facility] | [facility] | | | DEPARTMENT OF | | | PATHOLOGY | + + + + + + + + | Performing | Address | City/State/Zipcode | Phone Number | | Organization | | | | + + + + + | [facility] DEPARTMENT OF | [facility] | [place] [address] | | | PATHOLOGY | [address] | | | + + + + + | [facility] DEPARTMENT OF | [facility] | [place] [address] | | | PATHOLOGY | [address] | | | + + + + + documented in this encounter Visit Diagnoses Not on filedocumented in this encounter"
--- OUTSIDE RECORDS SUMMARY | ~2019-10-17 | XMS | Encounter Summary ---
Demographics + + + | Address | [address] | | | [place] [address] | + + + | Home Phone [...] Providers + +------+ + | Care Security Officers And Guards Name | Role | Phone | + [...] as of this encounter Progress Notes Interface, Neonatal Pediatric Nurse In - 08/30/2005 2:07 AM PST [id number] [facility] Date: 08/11/2005 Clinic: Colorectal [...] Rebekah Navas M.D. Chris Padgett M.D. / [id number] / [id number] / [id number] / [id number] E: 08/14/2005 [email or web address] cc: Dr. Sarah De Jesus, [place] Electronically signed by Chris Padgett 08-29-2005 03:28:30 PM documented i n this encounter Plan of Treatment Not on filedocumented as of this encounter Visit Diagnoses Not on filedocumented in this encounter"
--- OUTSIDE RECORDS SUMMARY | ~2019-10-17 | XMS | Encounter Summary ---
Demographics + + + | Address | [address] | | | [place] [address] | + + + | Home Phone [...] Providers + +------+ + | Care Rock Picker Name | Role | Phone | [...]
--- OUTSIDE RECORDS SUMMARY | ~2019-10-17 | XMS | Encounter Summary ---
Demographics + + + | Address | [address] | | | [place] [address] | + + + | Home Phone [...] Team Providers + +------+ + | Care Chest Painting And Sealing Supervisor Name | Role | Phone | + +------+ + | Sulaiman Carrera MD | PCP | | + +------+ + Encounter Details +--------+ + + + + | Date | Type | Department | Care Team | Description | +--------+ + + + + | 08/09/ | Hospital | Diagnostic Imaging | | | | 2013 | Encounter | Services at [facility] | | | | | | [address] | | | | | | Clementina Winkler PAWANG | | | | | | [facility], [address] [place] [address] | | | | | | [place], [place] | | | | | | [address] | | | | | | [phone] | | | +--------+ + + + [...] | | + +---------+ + + | [facility] DEPARTMENT OF | | | | [...]
--- OUTSIDE RECORDS SUMMARY | ~2019-10-17 | XMS | Encounter Summary ---
Demographics + + + | Address | [address] | | | [place] [address] | + + + | Home Phone [...] Team Providers + +------+ + | Care Sterile Preparation Technician Name | Role | Phone | [...] as of this encounter Progress Notes Interface, Automation Tech In - 01/12/2005 8:09 AM PDT [id number] [facility] Date: 10/23/2003 Clinic: Ms. [...] ahead. Chris Padgett M.D. CD / HS [id number] / [id number] / [id number] / [id number] documented i n this encounter Plan of Treatment Not on filedocumented as of this encounter Visit Diagnoses Not on filedocumented in this encounter"
--- OUTSIDE RECORDS SUMMARY | ~2019-10-17 | XMS | Encounter Summary ---
Demographics + + + | Address | [address] | | | [place] [address] | + + + | Home Phone [...] and Services [place] | | | and Jiarana | + + + | Organization | [...] Providers + +------+ + | Care Diamond Broker Name | Role | Phone | + [...] + + | 12/13/ | Telephone | [facility] | Alanis, | Follow-up | | 2019 | | MEDICINE [address] [place] [address] | MD Petrona | | | | | [facility] | [address] [place] [address] | | | | | [place] [address] | [place] [address] | | | | | [phone] | [phone] | | | | | | | [...] | | | | | [place] [address] | | | | | | [phone] | | | | | | | | +--------+---------+ + + + | 12/20/ | Office | Audiology | Elisabet Munson MS | | | 2020 | Visit | | [facility] [address] | | | | | | [place] [address] [place] | | | | | | [place] [address] | | | | | | [phone] | | | | | | | | +--------+---------+ + + + | 12/20/ | Office | Otolaryngology | Ulysses Genao MD | | | 2020 | Visit | | [address] [facility] | | | | | | [address] [place], | | | | | | [place] [address] | | | | | | [phone] | | | | | | | | +--------+---------+ + + + documented as of this encounter Visit Diagnoses Not on filedocumented in this encounter"
--- OUTSIDE RECORDS SUMMARY | ~2019-10-17 | XMS | Encounter Summary ---
Demographics + + + | Address | [address] | | | [place] [address] | + + + | Home Phone [...] Team Providers + +------+ + | Care Garment Worker Name | Role | Phone | [...] | Pain | Diagnoses | Miracle, | Mcdonald, | | | | Management | LBP (low | NIHARIKA Jean | Lukasz Rhodes, PhD | | | | | back pain) | [address] | [address] | | | | | DJD | [address] | Ave | | | | | (degenerativ | [place], [place] | [place] | | | | | e joint | [address] | [address] | | | | | disease) of | | Phone: | | | | | knee Knee | | [phone] | | | | | pain Major | | Fax: | | | | | depressive | | [phone] | | | | | disorder, | [...] 04/28/ | Office | [facility] | Lukasz Charles, | Major Depressive | | 2007 | Visit | [address] | PhD [address] | Disorder, Recurrent | | | | Mailcode: CH15P | [place], [place] | Episode, Mild (HCC); | | | | [place] [facility] | [address] | LBP (Low Back | | | | and Healing, | [phone] | Pain); Migraine | | | | | | Headache | | | | Floor [place], [place] | | | | | | [address] | | | | | | [phone] | | | +--------+---------+ + + + [...] scheduled to come here after surgery. Diagnosis: [place] I: 1. (296.31) Major depressive disorder, recurrent, mild. 2. (309.24) Adjustment disorder with anxiety. 3. 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 [place] II: Deferred [place] III: abdominal pain, migraine headache, low back pain. [place] IV: low finances [place] V: GAF 55-60 Plan: return with next medical follow-up appointment. Check mood, pain, surgical recovery , relaxation, activity, distraction, eating. Ask about headaches, fainting, Thanksgiving. Continue cognitive/behavioral therapy. Total time spent with patient was approximately 45 minutes. LUKASZ CHARLES PHD [facility] [address] [facility], [address] [place] [address] documented in this encount er Plan of Treatment + + +--------+ + + | Name | Type | Priori | Associated Diagnoses | Order Schedule | | | | ty | | | + + +--------+ + + | [facility], | Procedures | Routin | Major Depressive | Ordered: 04/28/2008 | | OFFICE (46-21) | | e | Disorder, Recurrent | [...]
--- OUTSIDE RECORDS SUMMARY | ~2019-10-17 | XMS | Encounter Summary ---
Demographics + + + | Address | [address] | | | [place] [address] | + + + | Home Phone [...] Team Providers + +------+ + | Care Liquor Blender Name | Role | Phone | + [...] | ANP | | | | | [facility] | | | | | | [address] | | | | | | Mailcode: CH15P | | | | | | [facility] | | | | | | and Healing, | | | | | | Building ,[address]th | | | | | | Floor [place], [place] | | | | | | [address] | | | | | | [phone] | | | +--------+ + + + [...]
--- OUTSIDE RECORDS SUMMARY | ~2019-10-17 | XMS | Encounter Summary ---
Demographics + + + | Address | [address] | | | [place] [address] | + + + | Home Phone [...] Providers + +------+ + | Care Nuclear Fuels Research Engineer Name | Role | Phone | + +------+ + | Sulaiman Carrera MD | PCP | | + +------+ + Encounter Details +--------+ + + + + | Date | Type | Department | Care Team | Description | +--------+ + + + + | 03/19/ | Ancillary | Registration [id number] | | | | 2004 | Registratio | [address] | | | | | n | [place] Mailcode: RPB07 | | | | | | [place], [place] | | | | | | [address] | | | | | | [phone] | | | +--------+ + + + [...]
--- OUTSIDE RECORDS SUMMARY | ~2019-10-17 | XMS | Encounter Summary ---
Demographics + + + | Address | [address] | | | [place] [address] | + + + | Home Phone [...] Providers + +------+ + | Care Detective Lieutenant Name | Role | Phone | [...] | Services | Therapy | Other | [facility] | HOSPITAL | | | Required | | idiopathic | i, | PHYSICAL | | | | | scoliosis, | Sulaiman-Russell | THERAPY [address] | | | | | lumbar | , [address] | [place] | | | | | region | [address] | [place], [place] | | | | | Chronic | [place], | [address] | | | | | bilateral | [place] | Phone: | | | | | low back | [address] | [phone] | | | | | pain with | Phone: | Fax: | | | | | bilateral | [phone] | [phone] | | | | | sciatica | Fax: | | | | | | Procedures | [phone] | | | | | | 07/20 [...] + + | 07/18/ | Office | [facility] | Alanis, | Chronic bilateral | | 2020 | Visit | MEDICINE [address] [place] [address] | MD Petrona | low back pain with | | | | [address] [place] | [address] [facility] | bilateral sciatica | | | | [place] [address] | [place] [address] | (Primary Dx); Other | | | | [phone] | [phone] | idiopathic | | | | | [...] issues: Patient recently did an MRI in [place], [place], after which she had a steroid [...] COPD (chronic obstructive pulmonary disease) ([facility]) Depression Diarrhea Dumping syndrome Fall at home Fatigue fracture of vertebra Fibromyalgia Full dentures GERD (gastroesophageal reflux disease) Glaucoma Hyperparathyroidism ([facility]) Hypothyroidism IBS (irritable bowel syndrome) Idiopathic scoliosis Leg edema Low back pain Lumbar postlaminectomy syndrome Lumbar radiculopathy primarily right 01/04/2015 Meniere syndrome Migraine with aura Migraines Muscle cramping Muscle spasm Myalgia Nausea Nonalcoholic hepatosteatosis Obesity Opioid dependence ([facility]) Orthostatic hypotension OLIVER (obstructive sleep apnea) Osteoarthritis, generalized Osteopenia Osteoporosis Palpitations Peripheral neuropathy Rheumatoid arthritis ([facility]) Right arm pain 01/04/2015 RLS (restless legs syndrome) S/P lumbar fusion 01/04/2015 Scoliosis Sleep apnea Spondylosis with myelopathy, lumbar region Stroke ([facility]) Syncope Tremor Type II or unspecified type [...] Procedure: COLONOSCOPY; Surgeon: Luther Brito MD; Location: [facility] MEDICAL PROCEDURE UNIT DILATION AND CURETTAGE OF UTERUS ELBOW SURGERY FINGER TRIGGER RELEASE 2002 FINGER TRIGGER RELEASE 2009 GASTRIC BYPASS SURGERY 2004 HYSTERECTOMY 05/14/1980 JOINT REPLACEMENT Bilateral 2006 2007 KNEE ARTHROSCOPY 2005 LAPAROSCOPY 01/27/2015 LAPAROTOMY 2008 ROTATOR CUFF REPAIR 2005 SPINE SURGERY TONSILLECTOMY 1964 UPPER GASTROINTESTINAL ENDOSCOPY N/A 12/18/2017 Procedure: EGD; Surgeon: Luther Brito MD; Location: [facility] MEDICAL PROCEDURE UNIT CURRENT MEDICATIONS [...] Allergen Reactions Ensure Diarrhea Food Diarrhea Lactose Tdmeuexfuk-Pxs-Gwid-Codeine Other (See Comments) Balance problems Codeine Sulfate Nausea Only Food Allergy Formula Diarrhea Ensure Levofloxacin Hives, Itching and Rash Butalbital Ropinirole Amitriptyline Hcl Other (See Comments) Confused and questionable for seizures Rnkwyatkfh-Wxdq-Vpuoegnn Rash duplicate Togpzndicn-Angj-Sysksqou Hives and Rash Cephalexin Hives Ciprofloxacin Hives and Rash Clarithromycin Hives and Rash Clindamycin Hcl Hives and Rash Doxycycline Rash Duloxetine Other (See Comments) Migraines and nausea Ketorolac Hives Levofloxacin Hives and Rash Morphine Swelling Penicillins Hives and Rash Ropinirole Hcl Hives Sulfamethoxazole-Trimethoprim Hives and Rash Tramadol Hcl Nausea Only FOLLOW-UP No follow-ups on file. Notes: 1. Parts of this documentwere created using [employer] speech recognition software. As a resu lt, [...] | | | | | | [place] [address] | | | | | | [phone] | | | | | | | | +--------+---------+ + + + | 12/20/ | Office | Audiology | Elisabet Munson MS | | | 2019 | Visit | | [facility] [address] | | | | | [address] [place] | | | | | | [place] [address] | | | | | | [phone] | | | | | | | | +--------+---------+ + + + | 12/20/ | Office | Otolaryngology | Ulysses Genao MD | | | 2019 | Visit | | [address] | | | | | | [address] [place], | | | | | | [place] [address] | | | | | | [phone] | | | | | | | [...] | | | | uIU/mL | [facility] | | | | | [...] [address] | [place] | [phone] | | [facility] | | [address] | | | - LABORATORY | | [...] | | | | First dose on [facility] 10/15/17 at 1215 | | | | [...]
--- OUTSIDE RECORDS SUMMARY | ~2019-10-17 | XMS | Encounter Summary ---
Demographics + + + | Address | [address] | | | [place] [address] | + + + | Home Phone [...] Providers + +------+ + | Care Special Needs Child Caregiver Name | Role | Phone | + +------+ + | Petrona Thapa | PCP | | | MD | | | + +------+ + Encounter Details +--------+ + + + + | Date | Type | Department | Care Team | Description | +--------+ + + + + | 09/22/ | Hospital | [facility] | Alanis, | Impingement syndrome | | 2018 | Encounter | [facility] | MD Petrona | of right shoulder | | | | [address] [place] | [address] [place] | | | | | [place], [place] | [place] [address] | | | | | [address] | [phone] | | | | | [phone] | | | +--------+ + + + [...] | | | | | [place] [address] | | | | | | [phone] | | | | | | | | +--------+---------+ + + + | 12/20/ | Office | Audiology | Elisabet Munson MS | | | 2019 | Visit | | [facility] [address] | | | | [address] [place] | | | | | | [place] [address] | | | | | | [phone] | | | | | | | | +--------+---------+ + + + | 12/20/ | Office | Otolaryngology | Ulysses Genao MD | | | 2019 | Visit | | [address] | | | | | | [address] [place], | | | | | | [place] [address] | | | | | | [phone] | | | | | | | [...]
--- OUTSIDE RECORDS SUMMARY | ~2019-10-17 | XMS | Encounter Summary ---
Demographics + + + | Address | [address] | | | [place] [address] | + + + | Home Phone [...] Providers + +------+ + | Care Client Development Manager Name | Role | Phone [...] as of this encounter Progress Notes Interface, Pizza [employer] Assistant In - 02/17/2006 3:04 AM [facility] [place] [address] [place], [place] [address] or October 02, 2001 Pedrito Gutierrez M.D. [facility] [address] [place] [address] RE: BELINDA GALARZA MR #: [id number] Dear Dr. 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 Sincerely, Issac Meeks M.D. teacher early childhood development, Division of Endocrinology, Diabetes, and Clinical Maintenance Instructor, Metabolic Disorders Clinic Ph#: [phone] [facility] / [id number] / [id number] / [id number] / C: 10/13/2001 praful [id number] signed by Interface, [employer] Assistant In at 02/17/2006 3:04 [facility]ed in this encounter Plan of Treatment Not on filedocumented as of this encounter Visit Diagnoses Not on filedocumented in this encounter"
--- OUTSIDE RECORDS SUMMARY | ~2019-10-17 | XMS | Encounter Summary ---
Demographics + + + | Address | [address] | | | [place] [address] | + + + | Home Phone [...] Providers + +------+ + | Care Superintendent Drilling And Production Name | Role | Phone | + [...] | [place] [address] | Clementina [address] [place], | Myelopathy, Lumbar | | | | Mychal [place] Mailcode: | [place] [address] | Region; Herniated | | | | CH15P [place] [facility] | | Lumbar | | | | [facility] and Healing, | | Intervertebral Disc | | | | | | L4-5; Fibromyalgia | | | | Floor [place], [place] | | syndrome 729.1 | | | | [address] | | | | | | [phone] | | | +--------+---------+ + + + [...] December 02, 2006 Patient: Belinda J Shefali, [id number], 1960 I agree with the proposed Physical Therapy Treatment Plan. Provider: DELFINA MOLINA ANP Nathalia Garrett - 007 11:16 AM PDT Physical Therapy Medicare Progress Note Date: 11/27/2006 Belinda Barnes Shefali [id number]. 1960 Start of Care: 11/24/2006 Referring Provider: [...] the free margin and undersurface of the legal editor horn of the medial meniscus suspicious for [...] gait using bilateral lofstrand crutches Patient's goals: fci: Ambulation with single based cane Treatment: Patient [...] are to increased strength and endurance . snf goals: Improve gait so patient can ambulate with single based cane. Plan: Patient will return for f/u visit in 2 weeks and at that time will progress in core, hip, and knee strengthening regime. Treatment began: 1100 Treatment ended: 1200 Nathalia Arora, Physical Therapist License #[id number] documented in this encoun ter Plan of Treatment + + +--------+ + + | Name | Type | Priori | Associated Diagnoses | Order Schedule | | | | ty | | | + + +--------+ + + | [facility] | Procedures | Routin | [...]
--- OUTSIDE RECORDS SUMMARY | ~2019-10-17 | XMS | Encounter Summary ---
Demographics + + + | Address | [address] | | | [place] [address] | + + + | Home Phone [...] Providers + +------+ + | Care Auditor Tax Name | Role | Phone | [...] | | | | | [place], | | | | | | [place] [address] | | | +--------+ + + + [...] | Patient: BELINDA MEEHAN J Med Rec: [id number] Sex F Bdate: 1960 | | Date/Time Data | | Entered Into [facility] | | Anesth PostOp | | Surgery Date [id number] 12/09/04 10:30 | | [id number] 11/23/03 10:57 | | Anesthesiologist SYEDA ANDREWS [...]
--- OUTSIDE RECORDS SUMMARY | ~2019-10-17 | XMS | Encounter Summary ---
Demographics + + + | Address | [address] | | | [place] [address] | + + + | Home Phone [...] Providers + +------+ + | Care Database Administrator Name | Role | Phone | [...] + | 01/17/ | Refill | [facility] | Alanis, | Medication Refill | | 2018 | | MEDICINE [address] [place] [address] | MD Petrona | | | | | [facility] | [address] [place] [address] | | | | | [place] [address] | [place] [address] | | | | | [phone] | [phone] | | | | | | | [...] | | | | | [place] [address] | | | | | | [phone] | | | | | | | | +--------+---------+ + + + | 12/20/ | Office | Audiology | Elisabet Munson MS | | | 2019 | Visit | | [facility] [address] | | | | | | [place] [address] [place] | | | | | | [place] [address] | | | | | | [phone] | | | | | | | | +--------+---------+ + + + | 12/20/ | Office | Otolaryngology | Ulysses Genao MD | | | 2020 | Visit | | [address] [facility] | | | | | | [address] [place], | | | | | | [place] [address] | | | | | | [phone] | | | | | | | | +--------+---------+ + + + documented as of this encounter Visit Diagnoses Not on filedocumented in this encounter"
--- OUTSIDE RECORDS SUMMARY | ~2019-10-17 | XMS | Encounter Summary ---
Demographics + + + | Address | [address] | | | [place] [address] | + + + | Home Phone [...] Team Providers + +------+ + | Care Cullet Crusher And Washer Name | Role | Phone | [...] + + | 06/04/ | Telephone | [facility] | Alanis, | Medication Problem | | 2016 | | MEDICINE [address] [place] [address] | MD Petrona | | | | | [facility] | [address] [place] [address] | | | | | [place] [address] | [place] [address] | | | | | [phone] | [phone] | | | | | | | [...] | | | | | [place] [address] | | | | | | [phone] | | | | | | | | +--------+---------+ + + + | 12/20/ | Office | Audiology | Elisabet Munson MS | | | 2019 | Visit | | [facility] [address] | | | | | | [address] | | | | | | [place] [address] | | | | | | [phone] | | | | | | | | +--------+---------+ + + + | 12/20/ | Office | Otolaryngology | Ulysses Genao MD | | | 2020 | Visit | | [address] [facility] | | | | | | [address] [place], | | | | | | [place] [address] | | | | | | [phone] | | | | | | | | +--------+---------+ + + + documented as of this encounter Visit Diagnoses Not on filedocumented in this encounter"
--- OUTSIDE RECORDS SUMMARY | ~2019-10-17 | XMS | Encounter Summary ---
Demographics + + + | Address | [address] | | | [place] [address] | + + + | Home Phone [...] Providers + +------+ + | Care Federal Appellate Clerk Name | Role | Phone | [...] | | | Metabolism | bypass | [address] | [address] | | | | | Hypovitamino | [address], | Ave | | | | | sis D B12 | [address] | [place], [place] | | | | | nutritional | [place], [place] | [address] | | | | | deficiency | [address] | Phone: | | | | | Other | Phone: | [phone] | | | | | protein-jose manuel | [phone] | Fax: | | | | | nick | Fax: | [phone] | | | | | malnutrition | [phone] | | | | | | Weight | | | | | | | gain | | | | | | | Procedures | | | | | | | CONSULT TO | | | | | | | ENDO | | | | | | | [address] | | | | | | | [address] | | | +--------+--------+ + + + [...] | | | [facility] | [place], [place] | Dx); Hypothyroidism; | | | | [address] | [address] | Essential | | | | [address] | [phone] | hypertension 401.9; | | | | [facility] | | Fibromyalgia | | | | Physician's | | syndrome 729.1 | | | | Pavilion [place], | | | | | | [place] [address] | | | | | | [phone] | | | +--------+---------+ + + + [...] Hives Mainly in the legs Clindamycin Codeine Epeviut-Xjypxkatyb-Qqy-Caff Balance problems Fioricet W/Codeine (Lygepepque-Rkaetrlpxq-Qan-Cod) Keflex (Cephalexin) Morphine IM ( only in [facility]) made gut pain worse 08/27/06: [...] U/L 41 ANION GAP 8 VITAMIN B12, [id number] pg/ml >2000 (H) HEMOGLOBIN A1C <=5.6 % [...] SERUM 15.0-85.0 pg/ml 222.9 (H) VITAMIN B12, [id number] pg/ml > 2000 HEMOGLOBIN A1C <=5.6 % [...]
--- OUTSIDE RECORDS SUMMARY | ~2019-10-17 | XMS | Encounter Summary ---
Demographics + + + | Address | [address] | | | [place] [address] | + + + | Home Phone [...] Providers + +------+ + | Care Director Part Name | Role | Phone | + [...] + + | 02/18/ | Telephone | [facility] | Alanis, | Results | | 2018 | | MEDICINE [address] | MD Petrona | | | | | [facility] | [address] [place] [address] | | | | | [place] [address] | [place] [address] | | | | | [phone] | [phone] | | | | | | | [...] | | | | | [place] [address] | | | | | | [phone] | | | | | | | | +--------+---------+ + + + | 12/20/ | Office | Audiology | Elisabet Munson MS | | | 2019 | Visit | | [facility] [address] | | | | | | [place] [address] [place] | | | | | | [place] [address] | | | | | | [phone] | | | | | | | | +--------+---------+ + + + | 12/20/ | Office | Otolaryngology | Ulysses Genao MD | | | 2020 | Visit | | [address] [facility] | | | | | | [address] [place], | | | | | | [place] [address] | | | | | | [phone] | | | | | | | | +--------+---------+ + + + documented as of this encounter Visit Diagnoses Not on filedocumented in this encounter"
--- OUTSIDE RECORDS SUMMARY | ~2019-10-17 | XMS | Encounter Summary ---
Demographics + + + | Address | [address] | | | [place] [address] | + + + | Home Phone [...] Providers + +------+ + | Care Scientific Investigator Name | Role | Phone | [...] Medication requested | | 2007 | | [place] [address] | [address] | (sucralfate | | | | Ave Mailcode: CH4S | [facility] | (CARAFATE) 1 gram | | | | [facility] | [place], [place] | Oral Tablet) | | | | and Healing, | [address] | | | | | [facility] | [phone] | | | | | [place], [place] | | | | | | [address] | | | | | | [phone] | | | +--------+ + + + [...]
--- OUTSIDE RECORDS SUMMARY | ~2019-10-17 | XMS | Encounter Summary ---
Demographics + + + | Address | [address] | | | [place] [address] | + + + | Home Phone [...] Providers + +------+ + | Care Fire Prevention Engineer Name | Role | Phone | [...] 09/09/ | Office | [facility] | Lukasz Charles, | Major Depressive | | 2006 | Visit | [address] | PhD [address] | Disorder, Recurrent | | | | Mailcode: CH15P | [place], [place] | Episode, Moderate | | | | [facility] | [address] | (HCC); DJD | | | | and Healing, | [phone] | (Degenerative Joint | | | | Building | | Disease) of Left | | | | Floor [place], [place] | | Knee; Neck Pain; | | | | [address] | | Herniated Lumbar | | | | [phone] | | Intervertebral Disc | | | [...] is making an effort to improve. Diagnosis: [place] I: 1. (296.32) Major depressive disorder, recurrent, moderate. 2. (309.24) Adjustment disorder with anxiety. 3. 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 [place] II: Deferred [place] III: abdominal pain, migraine headache, low back pain. [place] IV: low finances [place] V: GAF 50 Plan: Return in 2 weeks. Check preparation for niece's visit, [employer], pacing, relaxation, ac tivity, distraction. Check managing Pain... book. Continue cognitive/behavioral therapy. Total time spent with patient was approximately 45 minutes. LUKASZ CHARLES PHD [facility] [address] [facility] [address] [place] [address] documented in this encount er Plan of [...]
--- OUTSIDE RECORDS SUMMARY | ~2019-10-17 | XMS | Encounter Summary ---
Demographics + + + | Address | [address] | | | [place] [address] | + + + | Home Phone [...] Providers + +------+ + | Care Wet Primer Powder Blender Name | Role | Phone | [...] 07/30/ | Office | [facility] at [facility] | Lukasz Charles, | Major Depressive | | 2006 | Visit | [address] | PhD [address] | Disorder, Recurrent | | | | Mailcode: [facility] | [place], [place] | Episode, Moderate; | | | | [facility] | [address] | Chronic Abdominal | | | | and Healing, | [phone] | Pain; Herniated | | | | Building | | Lumbar | | | | Floor [place], [place] | | Intervertebral Disc | | | | [address] | | L4-5; Spondylosis | | | | [phone] | | with Myelopathy, | | | [...] She set a goal to go to [place] with a friend and use pacing skills during the trip. Ms. Meehan has depression and frustration. She is having some difficulty increasing her a ctivity level but she is putting forth effort. She appears to have good insight. Diagnosis: [place] I: 1. (296.32) Major depressive disorder, recurrent, moderate. 2. (309.24) Adjustment disorder with anxiety. 3. 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 [place] II: Deferred [place] III: abdominal pain, migraine headache, low back pain. [place] IV: low finances [place] V: GAF 50 Plan: Return in 2 weeks. Check pacing, relaxation, activity. Check trip to [place]. Check mood. Continue cognitive/behavioral therapy. Total time spent with patient was approximately 45 minutes. LUKASZ CHARLES PHD [facility] [address] [facility] [address] [address] documented in this encount er Plan of Treatment + + +--------+ + + | Name | Type | Priori | Associated Diagnoses | Order Schedule | | | | ty | | | + + +--------+ + + | CT PSYCHOTHERPY, | Procedures | Routin | Major Depressive | Ordered: 07/31/2006 | | OFFICE (45-76) | | e | Disorder, Recurrent | [...]
--- OUTSIDE RECORDS SUMMARY | ~2019-10-17 | XMS | Encounter Summary ---
Demographics + + + | Address | [address] | | | [place] [address] | + + + | Home Phone [...] Providers + +------+ + | Care Parts Expediter Name | Role | Phone | + [...] [address] | | | | | | [place], [place] | | | | | | [address] | | | | | | [phone] | | | +--------+ + + + [...] + + + | PROCEDURES:PANENDOSCOPY (EGD) CPT: 64029. PERSONNEL:THE | | | ATTENDING PHYSICIAN WAS [...] AM PDT | | PROCEDURES:PANENDOSCOPY (EGD) CPT: 36025. | | PERSONNEL:THE ATTENDING PHYSICIAN WAS PRESENT [...]
--- OUTSIDE RECORDS SUMMARY | ~2019-10-17 | XMS | Encounter Summary ---
Demographics + + + | Address | [address] | | | [place] [address] | + + + | Home Phone [...] Team Providers + +------+ + | Care Drum Worker Name | Role | Phone | [...] | | | [facility] | [place], [place] | | | | | [address] | [address] | | | | | [address] | [phone] | | | | | Physician's | | | | | | Pavilion, 1st floor | | | | | | [place], [place] | | | | | | [address] | | | | | | [phone] | | | +--------+--------+ + + + [...]
--- OUTSIDE RECORDS SUMMARY | ~2019-10-17 | XMS | Encounter Summary ---
Demographics + + + | Address | [address] | | | [place] [address] | + + + | Home Phone [...] Providers + +------+ + | Care Senior Product Analyst Name | Role | Phone | [...] | | | | | site | [place], [place] | [place] | | | | | Cervicalgia | [address] | [address] | | | | | Pain in | | | | | | | joint, site | | | | | | | unspecified | | | | | | | Procedures | | | | | | | [place] | | | | | | [...] [facility] | [address] [facility] | without Myelopathy | | | | [address] | Clementina Winkler [place], | (Primary Dx); | | | | Mychal Kovacs Mailcode: | [place] [address] | 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 Provider: DELFINA MOLINA ANP elfina Molina - 007 6:13 PM PST.pt rlands Nathalia willson - 07/15/2006 4:28 PM PSTFormatting of this note might be different from the origin al. Physical Therapy Medicare Progress Note Date: 07/15/2006 Belinda Meehan [id number]. 1960 Start of Care: 06/23/2006 Referring Provider: [...]
--- OUTSIDE RECORDS SUMMARY | ~2019-10-17 | XMS | Encounter Summary ---
Demographics + + + | Address | [address] | | | [place] [address] | + + + | Home Phone [...] Team Providers + +------+ + | Care Cafe Lead Name | Role | Phone | + +------+ + PCP | Unavailable | + +------+ + Encounter Details +--------+ + + + + | Date | Type | Department | Care Team | Description | +--------+ + + + + | 11/26/ | Office | [facility] | Clinic, [...] as of this encounter Progress Notes Interface, Copyman In - 12/09/2005 2:08 AM PDT [id number] GEOVANNI Barnes [id number] Clinic Date: 11/26/2005 Clinic: General Surgery Clinic Subjective: Ms. Belinda Meehan recently returned to clinic with complaints of abdominal pain. She has had a complete workup with no signs of obstruction. was tried as a new prescription, but the patient is still experiencing painful abdominal pain which is now associated with vomiting or signs of obstruction. She does tolerate food better with some oxycodone 5 mg to 10 mg as needed. I discussed this with Dr. Padgett, and we will provide 50 tablets of the oxycodone 5 mg for her to take every 4 to 6 hours as needed for pain. She will follow up in clinic on an as needed basis. Assessment and Plan: Chronic abdominal pain of unknown etiology with extensive workup. Prescription picked up at [facility] on November 25, 2005, for 50 oxycodone 5 mg. Melisa Thorne / SHARIF [id number] / [id number] / [id number] / [id number] Electronically signed by Kenisha Melton 12-05-2005 08:28:34 PM documented i n this encounter Plan of Treatment Not on filedocumented as of this encounter Visit Diagnoses Not on filedocumented in this encounter"
--- OUTSIDE RECORDS SUMMARY | ~2019-10-17 | XMS | Encounter Summary ---
Demographics + + + | Address | [address] | | | [place] [address] | + + + | Home Phone [...] Providers + +------+ + | Care Receiving Worker Name | Role | Phone | [...] | | | [facility] | [place], [place] | and counseling; | | | | [address] | [address] | [place] | | | | [address] | [phone] | | | | | [facility]ician[facility]ilion | | | | | | Physician's | | | | | | Pavilion [place], | | | | | | [place] [address] | | | | | | [phone] | | | +--------+ + + + [...]
--- OUTSIDE RECORDS SUMMARY | ~2019-10-17 | XMS | Encounter Summary ---
Demographics + + + | Address | [address] | | | [place] [address] | + + + | Home Phone [...] Providers + +------+ + | Care Civil Service Worker Name | Role | Phone [...] Results | | 2017 | | MEDICINE [address] [place] [address] | MD Petrona | | | | | [facility] | [address] [place] [address] | | | | | [place] [address] | [place] [address] | | | | | [phone] | [phone] | | | | | | | [...] | | | | | [place] [address] | | | | | | [phone] | | | | | | | | +--------+---------+ + + + | 12/20/ | Office | Audiology | Elisabet Munson MS | | | 2020 | Visit | | [facility] [address] | | | | | | [place] [address] [place] | | | | | | [place] [address] | | | | | | [phone] | | | | | | | | +--------+---------+ + + + | 12/20/ | Office | Otolaryngology | Ulysses Genao MD | | | 2020 | Visit | | [address] | | | | | | [address] [place], | | | | | | [place] [address] | | | | | | [phone] | | | | | | | | +--------+---------+ + + + documented as of this encounter Visit Diagnoses Not on filedocumented in this encounter"
--- OUTSIDE RECORDS SUMMARY | ~2019-10-17 | XMS | Encounter Summary ---
Demographics + + + | Address | [address] | | | [place] [address] | + + + | Home Phone [...] Providers + +------+ + | Care Counseling Aide Name | Role | Phone | [...] + + | 09/14/ | Telephone | [facility] | Alanis, | Chest Pain | | 2019 | | MEDICINE [address] [place] [address] | MD Petrona | | | | | [facility] | [address] [facility] | | | | | [place] [address] | [place] [address] | | | | | [phone] | [phone] | | | | | | | [...] | | | | | [place] [address] | | | | | | [phone] | | | | | | | | +--------+---------+ + + + | 12/20/ | Office | Audiology | Elisabet Munson MS | | | 2020 | Visit | | [facility] [address] | | | | | | [place] [address] [place] | | | | | | [place] [address] | | | | | | [phone] | | | | | | | | +--------+---------+ + + + | 12/20/ | Office | Otolaryngology | Ulysses Genao MD | | | 2020 | Visit | | [address] | | | | | | [address] [place], | | | | | | [place] [address] | | | | | | [phone] | | | | | | | | +--------+---------+ + + + documented as of this encounter Visit Diagnoses Not on filedocumented in this encounter"
--- OUTSIDE RECORDS SUMMARY | ~2019-10-17 | XMS | Encounter Summary ---
Demographics + + + | Address | [address] | | | [place] [address] | + + + | Home Phone [...] Providers + +------+ + | Care Client Server Programmer Name | Role | Phone | [...] + | 12/28/ | Telephone | [facility] | Alanis, | Results, Imaging | | 2017 | | MEDICINE [address] | MD Petrona | | | | | [facility] | [address] [place] [address] | | | | | [place] [address] | [place] [address] | | | | | [phone] | [phone] | | | | | | | [...] [place] | | | | | | [place] [address] | | | | | | [phone] | | | | | | | | +--------+---------+ + + + | 12/20/ | Office | Audiology | Elisabet Munson MS | | | 2019 | Visit | | [facility] [address] | | | | | | [place] [address] [place] | | | | | | [place] [address] | | | | | | [phone] | | | | | | | | +--------+---------+ + + + | 12/20/ | Office | Otolaryngology | Ulysses Genao MD | | | 2020 | Visit | | [address] [facility] | | | | | | [address] [place], | | | | | | [place] [address] | | | | | | [phone] | | | | | | | | +--------+---------+ + + + documented as of this encounter Visit Diagnoses Not on filedocumented in this encounter"
--- OUTSIDE RECORDS SUMMARY | ~2019-10-17 | XMS | Encounter Summary ---
Demographics + + + | Address | [address] | | | [place] [address] | + + + | Home Phone [...] Team Providers + +------+ + | Care Mamma Logist Name | Role | Phone | + [...] + + | 03/04/ | Telephone | [facility] | Alanis, | Referral; Medication | | 2016 | | [address] | MD Petrona | Refill | | | | [facility] | [address] [place] [address] | | | | | [place] [address] | [place] [address] | | | | | [phone] | [phone] | | | | | | | [...] | | | | | [place] [address] | | | | | | [phone] | | | | | | | | +--------+---------+ + + + | 12/20/ | Office | Audiology | Elisabet Munson MS | | | 2019 | Visit | | [facility] [address] | | | | | | [address] [place] | | | | | | [place] [address] | | | | | | [phone] | | | | | | | | +--------+---------+ + + + | 12/20/ | Office | Otolaryngology | Ulysses Genao MD | | | 2019 | Visit | | [address] [facility] | | | | | | [address] [place], | | | | | | [place] [address] | | | | | | [phone] | | | | | | | | +--------+---------+ + + + documented as of this encounter Visit Diagnoses Not on filedocumented in this encounter"
--- OUTSIDE RECORDS SUMMARY | ~2019-10-17 | XMS | Encounter Summary ---
Demographics + + + | Address | [address] | | | [place] [address] | + + + | Home Phone [...] Team Providers + +------+ + | Care Base Remover Name | Role | Phone | [...] + + | 09/16/ | Telephone | [facility] | Alanis, | Results, Imaging | | 2019 | | MEDICINE [address] | MD [place]ron[place] | | | | | [facility] | [address] [place] [address] | | | | | [place] [address] | [place] [address] | | | | | [phone] | [phone] | | | | | | | [...] [place] | | | | | | [place] [address] | | | | | | [phone] | | | | | | | | +--------+---------+ + + + | 12/20/ | Office | Audiology | Elisabet Munson MS | | | 2019 | Visit | | [facility] [address] | | | | | | [place] [address] [place] | | | | | | [place] [address] | | | | | | [phone] | | | | | | | | +--------+---------+ + + + | 12/20/ | Office | Otolaryngology | Ulysses Genao MD | | | 2020 | Visit | | [address] [facility] | | | | | | [address] [place], | | | | | | [place] [address] | | | | | | [phone] | | | | | | | | +--------+---------+ + + + documented as of this encounter Visit Diagnoses Not on filedocumented in this encounter"
--- OUTSIDE RECORDS SUMMARY | ~2019-10-17 | XMS | Encounter Summary ---
Demographics + + + | Address | [address] | | | [place] [address] [...] Providers + +------+ + | Care Front End Manager Name | Role | Phone | [...] 2005 | | Bariatric [address] | [address] | Pain (Primary Dx) | | | | [address] | [address] | | | | | Mailcode: L223A | [place], [place] | | | | | Physician's Sharmila | [address] | | | | | [address] [place], [place] | [phone] | | | | | [address] | | | | | | [phone] | | | +--------+ + + + [...] [facility] | [address] | [place], [place] | | | [facility] | | [address] | | + + + + + documented in this encounter Visit Diagnoses + + | Diagnosis | + + | Chronic abdominal pain - Primary Abdominal pain, unspecified site | + + documented in this encounter"
--- OUTSIDE RECORDS SUMMARY | ~2019-10-17 | XMS | Encounter Summary ---
Demographics + + + | Address | [address] | | | [place] [address] | + + + | Home Phone [...] Providers + +------+ + | Care Well Service Floorperson Name | Role | Phone | + [...] [id number] | | | | | | [place], [place] | | | | | | [address] | | | | | | [phone] | | | +--------+--------+ + + + [...]
--- OUTSIDE RECORDS SUMMARY | ~2019-10-17 | XMS | Encounter Summary ---
Demographics + + + | Address | [address] | | | [place] [address] | + + + | Home Phone [...] Team Providers + +------+ + | Care After School Counselor Name | Role | Phone | [...]
--- OUTSIDE RECORDS SUMMARY | ~2019-10-17 | XMS | Encounter Summary ---
Demographics + + + | Address | [address] | | | [place] [address] | + + + | Home Phone [...] Team Providers + +------+ + | Care Pickling Solution Maker Name | Role | Phone | [...] + + | 02/04/ | Telephone | [facility] | Emmy-Kamlesh, | Other (Kidney pain ) | | 2017 | | MEDICINE [address] | MD Petrona | | | | | [facility] | [address] [place] [address] | | | | | [place] [address] | [place] [address] | | | | | [phone] | [phone] | | | | | | | [...] | | | | | [place] [address] | | | | | | [phone] | | | | | | | | +--------+---------+ + + + | 12/20/ | Office | Audiology | Elisabet Munson MS | | | 2019 | Visit | | [facility] | | | | | | [address] [place] [address] [place] | | | | | | [place] [address] | | | | | | [phone] | | | | | | | | +--------+---------+ + + + | 12/20/ | Office | Otolaryngology | Ulysses Genao MD | | | 2020 | Visit | | [address] | | | | | | [address] [place], | | | | | | [place] [address] | | | | | | [phone] | | | | | | | | +--------+---------+ + + + documented as of this encounter Visit Diagnoses Not on filedocumented in this encounter"
--- OUTSIDE RECORDS SUMMARY | ~2019-10-17 | XMS | Encounter Summary ---
Demographics + + + | Address | [address] | | | [place] [address] | + + + | Home Phone [...] + + | 12/18/ | Hospital | [facility] | Luther Brito MD | Abdominal pain, | | 2018 | Encounter | [facility] OP | [address] | unspecified | | | | [address] | [place], [place] | abdominal location; | | | | [place], [place] | [address] | Gastroesophageal | | | | [address] | [phone] | reflux disease, | | | | [phone] | | esophagitis presence | | | [...] You can't be awakened Date Last Reviewed: 04/01/201619998324-8316 [employer]. [address] [place] [address], [place] [address]. All righ ts reserved. This information is [...] Petrona | | | | | | [facility] [address] | | | | | | [place] [address] | | | | | | [phone] | | | | | | | | +--------+---------+ + + + | 12/20/ | Office | Audiology | Elisabet Munson MS | | | 2019 | Visit | | [facility] [address] | | | | | | [address] [place] | | | | | | [place] [address] | | | | | | [phone] | | | | | | | | +--------+---------+ + + + | 12/20/ | Office | Otolaryngology | Ulysses Genao MD | | | 2019 | Visit | | [address] | | | | | | [address] [place], | | | | | | [place] [address] | | | | | | [phone] | | | | | | | [...] 12/18/2017 | PROVATION | | 10:49 AMMRN: [id number] #: [id number] of : | | | 9Admit Type: AmbulatoryAge: 57Room: [facility] 01Gender: FemaleNote | | | Status: FinalizedAttending MD: Luther Brito [facility] | | Upper GI endoscopyIndications: Generalized abdominal | | | pain, Heartburn, Suspected esophageal | | | reflux, DiarrheaProviders: Ltuher Brito MD, Maris | | | LIUDMILA [...] the anesthesiologist and the | | | advanced manufacturing technician in the pre-procedure area in the [...] | appearing mucosa. This was traversed. The xiavi-dk-mtxiitw limb | | | was characterized by healthy appearing mucosa. The | | | jejunojejunal anastomosis was characterized by healthy | | | appearing mucosa. The oqcyyddq-uh-dxcjcjz limb was not examined | | | [...] AMScope Out: | | | 11:08:34 AM [facility], [address] | | | [place] [address] | | | - Return to GI [...] |Scope Out: 11:08:34 AM | | | [facility], [address] [place], [place] | | | [address] | | + + -+ + +---------+ [...] 12/18/2017 | PROVATION | | 10:43 AMMRN: [id number] #: [id number] of : | | | 9Admit Type: AmbulatoryAge: 57Room: [facility] 01Gender: FemaleNote | | | Status: FinalizedAttending MD: Luther Brito [facility]: | | | ColonoscopyIndications: Generalized abdominal [...] the anesthesiologist and the | | | advanced manufacturing technician in the pre-procedure area in the [...] Scope In: 11:12:28 AMScope Out: 11:56:57 AM [place] | | | [facility], [address] [place] [address] | | | [phone] | | | - Await pathology results. [...] |Scope Out: 11:56:57 AM | | | [facility], [address] [place] [address] | | | [address] | | + + -+ + +---------+ [...] for specific diagnostic abnormality. | | | VR:[facility]:C2NR GROSS DESCRIPTION: Received in five parts. | [...] | | slide preparation were performed by [facility] | | | [place] [address] (Water Service Dispatcher: Stephen Jacobson, | | | Joanna CLIA#: [id number]). Professional interpretation was performed | | | by [employer], [facility], [facility] | | | [place] [address] (Water Service Dispatcher: Stephen Donaldson | Anika Jacobson M.D.; CLIA#: [id number]). Diagnostician: Stephen Khan | | | Kavon [...]
--- OUTSIDE RECORDS SUMMARY | ~2019-10-17 | XMS | Encounter Summary ---
Demographics + + + | Address | [address] | | | [place] [address] | + + + | Home Phone [...] Providers + +------+ + | Care Supervisor Fabrication Department Name | Role | Phone | [...] Medicine and | Chronic | Emmy-Tajt | E MD Katie [address] | | | Required | Rehabilitatio | bilateral | i, | [address] | | | | n | low back | Sulaiman[address]Iv[address] | [place], | | | | | pain with | [address] | [place] [address] | | | | | left-sided | [address] | Phone: | | | | | sciatica | [place], | [phone] | | | | | Muscle spasm | [place] | Fax: | | | | | | [address] | [phone] | | | | | Fibromyalgia | Phone: | | | | | | | [phone] | | | | | | | Fax: | | | | | | | [phone] | | +--------+ + + + + + Reason for Visit + + + | Reason | Comments | + + + | Follow-up | 2 month | + + + Encounter Details +--------+---------+ + + + | Date | Type | Department | Care Team | Description | +--------+---------+ + + + | 05/04/ | Office | [facility] INTERNAL | Alanis, | Chronic bilateral | | 2017 | Visit | MEDICINE [address] | MD [place] | low back pain with | | | | [address] | [address] [facility] | left-sided sciatica | | | | [place] [address] | [place] [address] | (Primary Dx); Muscle | | | | [phone] | [phone] | spasm; | | | | | [...] this encounter Patient Instructions Patient Instructions Petrona Thaap MD - 05/04/2017 3:17 PM PST Understanding [...] also help with symptoms. Date Last Reviewed: 07/29/201519996382-5098 [employer]. [address] [place] [address], [place] [address]. All righ ts reserved. This information is [...] insufficiency Coccydynia COPD (chronic obstructive pulmonary disease) ([facility]) Depression Diarrhea Dumping syndrome Fatigue fracture of vertebra Fibromyalgia Glaucoma Hyperparathyroidism (HCC) Hypothyroidism IBS (irritable bowel syndrome) Idiopathic scoliosis Leg edema Lumbar postlaminectomy syndrome Lumbar radiculopathy primarily right 01/04/2015 Meniere syndrome Migraines Muscle cramping Muscle spasm Myalgia Nonalcoholic hepatosteatosis Obesity Opiate dependence ([facility]) Orthostatic hypotension OLIVER (obstructive sleep apnea) Osteoarthritis, generalized Osteopenia Osteoporosis Peripheral neuropathy ([facility]) Rheumatoid arthritis ([facility]) Right arm pain 01/04/2015 RLS (restless legs syndrome) S/P lumbar fusion 01/04/2015 Scoliosis Spondylosis with myelopathy, lumbar region Stroke ([facility] [...] (See Comments) Confused and questionable for seizures Hxbwhcqnik-Yzrh-Bidwaljv Cephalexin Hives Ketorolac Hives Morphine Swelling Tramadol Hcl Nausea Only Eupmtruyte-Rcbr-Aqebdftz Hives and Rash Ciprofloxacin Hives and Rash [...] back pain with left-sided sciatica - * [facility] Physiatry - [facility] Referral; Future - CBC with Differential; Future - Comprehensive Metabolic Panel; Future - TSH; Future - CK Total; Future - C-Reactive Protein; Future 2. Muscle spasm - * [facility] Phys[facility] - [facility] Referral; Future - CBC with Differential; Future - Comprehensive Metabolic Panel; Future - TSH; Future - CK Total; Future - C-Reactive Protein; Future - methocarbamol (ROBAXIN) 750 mg tablet; take 1 tablet by mouth twice a day Dispense: 60 t ablet; Refill: 3 3. Fibromyalgia - * [facility] - [facility] Referral; Future - CBC with Differential; Future - Comprehensive Metabolic Panel; Future - TSH; Future - CK Total; Future - C-Reactive Protein; Future 4. Left hip pain - XR Hip Left 2-3 Views; Future FOLLOW-UP No Follow-up on file. Note: Parts of this documentwere created using [employer] speech recognition software. As a r esult, there may be unintended word spelling errors. Every attempt was made to correct the dictation. Galye colin in this encounter Plan of Treatment [...] | | | | | [place] [address] | | | | | | [phone] | | | | | | | | +--------+---------+ + + + | 12/20/ | Office | Audiology | Elisabet Munson MS | | | 2019 | Visit | | [facility] [address] | | | | | [address] [place] | | | | | | [place] [address] | | | | | | [phone] | | | | | | | | +--------+---------+ + + + | 12/20/ | Office | Otolaryngology | Ulysses Genao MD | | | 2019 | Visit | | [address] | | | | | | [address] [place], | | | | | | [place] [address] | | | | | | [phone] | | | | | | | [...] [address] | [place] | [phone] | | [facility] | | [address] | | | - LABORATORY | | [...] [address] | [place] | [phone] | | [facility] | | [address] | | | - LABORATORY | | [...] | [address] | [place], [place] | [phone] | | [facility] | | [address] | | | - LABORATORY | | [...] mL/min/1.73m2 | [facility] | | | KENYAN | RATE,ESTIMATED | | MEDICAL | | | | mL/min/1.34u8Donx than | | CENTER - | | [...] [address] | [place] | [phone] | | [facility] | | [address] | | | - LABORATORY | | [...] | | Lymphocytes | | | [facility] | | [...] [address] | [place] | [phone] | | [facility] | | [address] | | | - LABORATORY | | [...]
--- OUTSIDE RECORDS SUMMARY | ~2019-10-17 | XMS | Encounter Summary ---
Demographics + + + | Address | [address] | | | [place] [address] | + + + | Home Phone [...] Providers + +------+ + | Care Domestic Technician Name | Role | Phone | [...] Lab findings, | | 2007 | | [place] [address] | [address] | teaching, guidance, | | | | Ave Mailcode: [facility] | [address] | and counseling (labs | | | | [facility] | [place], [place] | done on 07/01/07) | | | | and Healing, | [address] | | | | | [facility] | [phone] | | | | | [place], [place] | | | | | | [address] | | | | | | [phone] | | | +--------+ + + + [...]
--- OUTSIDE RECORDS SUMMARY | ~2019-10-17 | XMS | Encounter Summary ---
Demographics + + + | Address | [address] | | | [place] [address] | + + + | Home Phone [...] Team Providers + +------+ + | Care Contact Center Analyst Name | Role | Phone | [...] as of this encounter Progress Notes Interface, Entomology Professor In - 08/19/2005 2:05 AM PST [id number] [facility] Date: 07/24/2005 Clinic: Hematology/Oncology [...] or malignancies. 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 She still smokes 1/2 [...] are appreciated. No petechiae. Laboratory: Labs from [place]: Homocysteine 8.5 and SANIA negative. CBC: White [...] laboratory studies that have been obtained from [place], it does not appear that she has [...] E supplementation. Karen Gramza, Joanna Sellers M.D. paraprofessional aide / HS [id number] / [id number] / [id number] / [id number] cc: Pedrito Gutierrez M.D. [facility] [address] [place] [address] FAX: [phone] Electronically signed by Lukasz Sellers 08-18-2005 01:27:53 PM documented i n this encounter Plan of Treatment Not on filedocumented as of this encounter Visit Diagnoses Not on filedocumented in this encounter"
--- OUTSIDE RECORDS SUMMARY | ~2019-10-17 | XMS | Encounter Summary ---
Demographics + + + | Address | [address] | | | [place] [address] | + + + | Home Phone [...] Team Providers + +------+ + | Care Frontend Engineer Name | Role | Phone | + +------+ + PCP | Unavailable | + +------+ + Encounter Details +--------+ + + + + | Date | Type | Department | Care Team | Description | +--------+ + + + + | 12/21/ | Results | Rheumatology | Caitlin Rivera, | | | 2003 | Only | [place] [address] | DATA SECURITY CONSULTANT | | | | | Sharmila Schilling | | | | | | Mailcode: OPC5 | | | | | | Outpatient Clinic | | | | | | Building [facility] | | | | | | [place] [address] | | | | | | [phone] | | | +--------+ + + + [...] Iron and TIBC, Serum Test performed by [facility] | | | Formerly [facility]. | | + + + + + + + + | Performing | Address | City/State/Zipcode | Phone Number | | Organization | | | | + + + + + | [facility] | [address] | [place] [address] | | | LABORATORY | | | [...] | + + + + + | [facility] | [address] | [place] [address] | | | LABORATORY | | | [...] | | | | | performed at [place] | | | | | | [facility] | | | | | | Laboratory | | | | + + + + + + + + | Specimen | + + | | + + + + + + + | Performing | Address | City/State/Zipcode | Phone Number | | Organization | | | | + + + + + | [facility] | [address] | [place] [address] | | | LABORATORY | | | | + + + + + documented in this encounter Visit Diagnoses Not on filedocumented in this encounter"
--- OUTSIDE RECORDS SUMMARY | ~2019-10-17 | XMS | Encounter Summary ---
Demographics + + + | Address | [address] | | | [place] [address] | + + + | Home Phone [...] Providers + +------+ + | Care Spool Sander Name | Role | Phone | [...] | ANP | | | | | [facility] | | | | | | [address] | | | | | | Mailcode: CH15P | | | | | | [facility] | | | | | | and Healing, | | | | | | Building ,15th | | | | | | Floor [place], [place] | | | | | | [address] | | | | | | [phone] | | | +--------+ + + + [...]
--- OUTSIDE RECORDS SUMMARY | ~2019-10-17 | XMS | Encounter Summary ---
Demographics + + + | Address | [address] | | | [place] [address] | + + + | Home Phone [...] Team Providers + +------+ + | Care Bay Stocker Name | Role | Phone | + [...] as of this encounter Progress Notes Interface, Stabilizer Operator In - 01/12/2005 10:09 AM PDT [id number] [facility] Date: 12/25/2004 Clinic: GENERAL SURGERY [...] send an emergency supply fax to [facility] at fax #[phone], first 30 pills, oxycodone 5 mg to [...] the current plan. Melisa Thorne / SHARIF [id number] / [id number] / [id number] / [id number] Electronically signed by Kenisha Melton 01-01-2005 04:41:20 PM documented i n this encounter Plan of Treatment Not on filedocumented as of this encounter Visit Diagnoses Not on filedocumented in this encounter"
--- OUTSIDE RECORDS SUMMARY | ~2019-10-17 | XMS | Encounter Summary ---
[...] Team Providers + +------+ + | Care Baggage Porter Head Name | Role | Phone | [...] | | [facility] | [place], [place] | | | | | and [place], | [address] | | | | | [facility] , | [phone] | | | | | Floor [place], [place] | | | | | | [address] | | | | | | [phone] | | | +--------+ + + + [...]
--- OUTSIDE RECORDS SUMMARY | ~2019-10-17 | XMS | Encounter Summary ---
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 Diagnosis: Bolig[place] I: 1. (296.32) Major depressive disorder, recurrent, moderate. 2. (309.24) Adjustment disorder with anxiety. 3. 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 Boligee II: Deferred Boligee III: abdominal pain, migraine headache, low back pain. Bol[place] IV: low finances Boligee V: GAF 55-60 Plan: Return in 2 weeks. Check mood, pacing, relaxation, activity, distraction. Continue cognit gerda/behavioral therapy. Set goals for summer activity. Total time spent with patient was approximately 45 minutes. LUKASZ CHARLES PHD [facility] [address] [place] [address] And [facility], [address]th [place] [address] documented in this encount er Plan of [...] | Major depressive disorder, recurrent episode, moderate ([facility]) Major depressive | | disorder, [...]
--- OUTSIDE RECORDS SUMMARY | ~2019-10-17 | XMS | Encounter Summary ---
Demographics + + + | Address | [address] | | | [place] [address] | + + + | Home Phone [...] Providers + +------+ + | Care Perioperative Manager Name | Role | Phone | [...] | | | | Clinical Nutrition | [place], [place] | | | | | [address] | [address] | | | | | Loop Mailcode: OPC5 | [phone] | | | | | Outpatient Clinic | | | | | | [facility] | | | | | | [place] [address] | | | | | | [phone] | | | +--------+ + + + [...] [facility] | [address] | [place], [place] | | | [facility] | | [address] | | + + + + + [...] + | [facility] | [address] | [place] [address] | | | LABORATORY | | | [...] OF | [address] | [place] [address] | | | PATHOLOGY | [address] | | | + + + + + | [facility] DEPARTMENT OF | [address] | [place] [address] | | | PATHOLOGY | [address] | | | + + + + + LIPASE (01/11/2002 3:50 PM PDT) + +--------+ + + + | Component | Value | Ref Range | Performed | Pathologist | | | | | At | Signature | + +--------+ + + + | LIPASE | 21 (L) | 22 - 51 U/L | [facility] | | | (LAB) | | | [...] | + + + + + | [facility] | [address] [facility] | [place] [address] | | | PATHOLOGY | [address] | | | + + + + + | [facility] | [facility] | [place] [address] | | | PATHOLOGY | [address] [...] DEPARTMENT OF | [address] | [place] [address] | | | PATHOLOGY | [address] | | | + + + + + | [facility] DEPARTMENT | [address] | [place] [address] | | | PATHOLOGY | [address] [...] | + + + + + | [facility] | [address] | [place] [address] | | | PATHOLOGY | [address] | | | + + + + + | [facility] | [facility] [address] | [place] [address] | | | PATHOLOGY | [address] | | | + + + + + documented in this encounter Visit Diagnoses Not on filedocumented in this encounter"
--- OUTSIDE RECORDS SUMMARY | ~2019-10-17 | XMS | Encounter Summary ---
Demographics + + + | Address | [address] | | | [place] [address] | + + + | Home Phone [...] Team Providers + +------+ + | Care Cellophaner Name | Role | Phone | + [...] | | | [facility] | [place], [place] | | | | | [address] | [address] | | | | | [address] | [phone] | | | | | Physician's | | | | | | Pavilion, 1st floor | | | | | | [place], [place] | | | | | | [address] | | | | | | [phone] | | | +--------+ + + + [...]
--- OUTSIDE RECORDS SUMMARY | ~2019-10-17 | XMS | Encounter Summary ---
Demographics + + + | Address | [address] | | | [place] [address] | + + + | Home Phone [...] Providers + +------+ + | Care Mail Reader Name | Role | Phone | + [...] | | | | behavior of | [facility] | Orthopaedics | | | | | bone and | & Fractur | [address] | | | | | articular | [address] | [address] | | | | | cartilage | [address] | Rd | | | | | Procedures | [place], | [place], [place] | | | | | REQUEST TO | [place] [address] | [address] | | | | | SURGERY | Phone: | | | | | | FINISH SAW OPERATOR | [phone] | | | | | | [place] BONE | Fax: | | | | | | BIOPSY,OPEN | [phone] | | | | | | DEEP MT | | | | | | | EXCIS/CURET | | | | | | | BENIGN TUMR | | | | | | | CLAV/SCAPULA | | | | | | | MT EXCIS | | | | | | | BENIGN TUMR | | | | | | | CLAV/SCAP,AU | | | | | | | TOGRFT MT | | | | | | | [...] | | | | | | | [facility] | Orthopaedics | | | | | | & Fractur | [address] | | | | | | [address] | [address] | | | | | | Nirav Kovacs | [place] | | | | | | [place], | [place], [place] | | | | | | [place] [address] | [address] | | | | | | Phone: | | | | | | | [phone] | | | | | | | Fax: | | | | | | | [phone] | | +--------+--------+ + + + + [...] | (Primary Dx) | | | | [place], [place] | | | | | | [address] | | | | | | [phone] | | | +--------+---------+ + + + [...] 08/2007 right knee Hx lumbar fusion 05/2008 L5-L5vewdjh with bone spur removals Hx appendectomy Hx cholecystectomy Hx section Hx hysterectomy Gastric bypass Mayra Padgett wt 278 01/18 Paniculectomy Allergies: Allergies Allergen Reactions Keflex (Cephalexin) Sulfa (Sulfonamides) Codeine Penicillins Clindamycin Cipro (Ciprofloxacin) Tramadol Morphine IM ( only in [facility]) made gut pain worse 08/27/06: Trial of oral MSIR caused leg swelling Clarithromycin Hives Mainly in the legs Ejmvwmj-oinxrrotxx-tdr-caff Balance problems Amitriptyline Grand mal seizures Medications: [...] signs are noted as recorded by the Night Warehouse Manager. General: Alert, awake, and oriented x3. No [...] No: | | | | | | [id number] Name: | | | | | | BELINDA MEEHAN | | | | | | Birthday: 1960 | | | | | | Sex: F | | | | | | Alias:Patient Location: | | | | | | [id number]: Outpatient | | | | | | ActiveOrdering | | | | | | Physician: JOSÉ MIGUEL | | | | | | MARYSOL MORENO SCAPULA | | | | | | COMPLETE completed on | | | | | | 01/01/2009 11:55 | | | | | | AMAccession # | | | | | | [id number]:LEFT | | | | | | SCAPULA [...]
--- OUTSIDE RECORDS SUMMARY | ~2019-10-17 | XMS | Encounter Summary ---
Demographics + + + | Address | [address] | | | [place] [address] | + + + | Home Phone [...] Providers + +------+ + | Care Receiving Specialist Name | Role | Phone | [...] | | | | | (degenerativ | [place] | [place] | | | | | e joint | [address] | [address] | | | | | disease) of | | Phone: | | | | | knee Knee | | [phone] | | | | | pain Major | | Fax: | | | | | depressive | | [phone] | | | | | disorder, | [...] + + + + | 04/20/ | External Relations Director | [facility] Comprehensive | Miranda Lambert, | LBP (Low Back Pain); | | 2006 | | Pain Center at | ANP | 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
--- OUTSIDE RECORDS SUMMARY | ~2019-10-17 | XMS | Encounter Summary ---
Demographics + + + | Address | [address] | | | [place] [address] | + + + | Home Phone [...] Team Providers + +------+ + | Care Tectonophysicist Name | Role | Phone | + [...] + + | 02/18/ | Telephone | [facility] INTERNAL | [place], | Results | | 2018 | | MEDICINE [address] | [place] | | | | | [facility] | [address] [place] [address] | | | | | [place] [address] | [place] [address] | | | | | [phone] | [phone] | | | | | | | [...] | | | | | [place] [address] | | | | | | [phone] | | | | | | | | +--------+---------+ + + + | 12/20/ | Office | Audiology | Elisabet Munson MS | | | 2019 | Visit | | [facility] [address] | | | | | | [place] [address] [place] | | | | | | [place] [address] | | | | | | [phone] | | | | | | | | +--------+---------+ + + + | 12/20/ | Office | Otolaryngology | Ulysses Genao MD | | | 2020 | Visit | | [address] [facility] | | | | | | [address] [place], | | | | | | [place] [address] | | | | | | [phone] | | | | | | | | +--------+---------+ + + + documented as of this encounter Visit Diagnoses Not on filedocumented in this encounter"
--- OUTSIDE RECORDS SUMMARY | ~2019-10-17 | XMS | Encounter Summary ---
Demographics + + + | Address | [address] | | | [place] [address] | + + + | Home Phone [...] Providers + +------+ + | Care Bilingual Sales Representative Name | Role | Phone [...] + + | 05/29/ | Office | [facility] Comprehensive | Delfina Molina, | Chronic Abdominal | | 2005 | Visit | Pain Center at | ANP | Pain; Cervical Pain; | | | | [facility] | | Joint pain 719.40; | | | | [address] | | Depression | | | | Mailcode: CH15P | | | | | | [facility] | | | | | | and Healing, | | | | | | Building | | | | | | Floor [place], [place] | | | | | | [address] | | | | | | [phone] | | | +--------+---------+ + + + [...] a Physical Therapy evaluation here at the [facility] in [place]. 3. Patient will be referred for a Psychology evaluation here at the [facility]. 4. Following the completion of these [...] Belinda Meehan is a 46 y.o. female [id number] Chief Complaint: Patient presents with: Pain - [...] as PAIN MEDICINES: Opioids: Hydrocodone (Vicodin, Lortab, [place]): Why stopped?: don't remember. Came off due [...] a Physical Therapy evaluation here at the [facility]. 3. Patient will be referred for a Psychology evaluation here at the [facility] er. 4. Following the completion of these [...] you for referring Belinda Meehan to the [email or web address] [place] for a chronic pain management evaluation. I trust that you will find the recomm endations satisfactory and that you will be able to implement these in the care of your mehreen ent. Should you have any concerns or questions, please contact me, I would be happy to add ress those with you. DELFINA MOLINA [facility] [place] Mail code CH 4P [place] [facility] [address] [place] [address] metmiothy Tasha - 05/29/2006 1:51 PM PSTInitial Evaluation [...] drinking? no -Do you ever drink an eye-bleach boiler filler in the morning to relieve the shakes? [...] stressful life experiences recently? 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 What do you expect from our pain program? Help in coping with the pain 24. What types of treatment do you expect from your visits to the [facility] ? Stress Management documented in [...]
--- OUTSIDE RECORDS SUMMARY | ~2019-10-17 | XMS | Encounter Summary ---
Demographics + + + | Address | [address] | | | [place] [address] | + + + | Home Phone [...] + +------+ + | Care Crop Farm Workers Name | Role | Phone | + +------+ + | Petrona Thapa | PCP | | | MD | | | + +------+ + Encounter Details +--------+ + + + + | Date | Type | Department | Care Team | Description | +--------+ + + + + | 02/23/ | Hospital | [facility] | [place] | Right shoulder pain, | | 2018 | Encounter | [facility] | MD Eliud [address] | unspecified | | | | [address] [place] | [address] [place] | chronicity | | | | [place] | [place] [address] | | | | | [address] | [phone] | | | | | [phone] | | | +--------+ + + + [...] | | | | | [place] [address] | | | | | | [phone] | | | | | | | | +--------+---------+ + + + | 12/20/ | Office | Audiology | Elisabet Munson MS | | | 2019 | Visit | | [facility] [address] | | | | | [address] [place] | | | | | | [place] [address] | | | | | | [phone] | | | | | | | | +--------+---------+ + + + | 12/20/ | Office | Otolaryngology | Ulysses Genao MD | | | 2019 | Visit | | [address] | | | | | | [address] [place], | | | | | | [place] [address] | | | | | | [phone] | | | | | | | [...]
--- OUTSIDE RECORDS SUMMARY | ~2019-10-17 | XMS | Encounter Summary ---
Demographics + + + | Address | [address] | | | [place] [address] | + + + | Home Phone [...] Team Providers + +------+ + | Care Cascara Bark Cutter Name | Role | Phone | [...] | | | | SURGERY - | [place], [place] | [address] [place] | | | | | UROLOGY | [address] | for Health | | | | | | Phone: | dat [place], | | | | | | [phone] | Building 1, | | | | | | Fax: | 10th Floor | | | | | | [phone] | [place], [place] | | | | | | | [address] | | | | | | | Phone: | | | | | | | [phone] | | | | | | | Fax: | | | | | | | [phone] | +--------+--------+ + + + + Reason [...] | Status Post | | | | [facility] | [facility] [place] | Bariatric Surgery | | | | and Healing, | [address] | | | | | [facility] | [phone] | | | | | Floor [place], [place] | | | | | | [address] | | | | | | [phone] | | | +--------+---------+ + + + [...] coughing. Medications: Fentanyl 25 mcg 72 hours, Drury/JOJO 10 mg/325 mg PRN Q 6 hrs, [...]
--- OUTSIDE RECORDS SUMMARY | ~2019-10-17 | XMS | Encounter Summary ---
Demographics + + + | Address | [address] | | | [place] [address] | + + + | Home Phone [...] Providers + +------+ + | Care Project Manager Name | Role | Phone [...] + | 12/26/ | Refill | [facility] | Alanis, | Medication Refill | | 2017 | | MEDICINE [address] [place] [address] | MD Petrona | | | | | [facility] | [address] [place] [address] | | | | | [place] [address] | [place] [address] | | | | | [phone] | [phone] | | | | | | | [...] | | | | | [place] [address] | | | | | | [phone] | | | | | | | | +--------+---------+ + + + | 12/20/ | Office | Audiology | Elisabet Munson MS | | | 2019 | Visit | | [facility] [address] | | | | | | [place] [address] [place] | | | | | | [place] [address] | | | | | | [phone] | | | | | | | | +--------+---------+ + + + | 12/20/ | Office | Otolaryngology | Ulysses Genao MD | | | 2020 | Visit | | [address] [facility] | | | | | | [address] [place], | | | | | | [place] [address] | | | | | | [phone] | | | | | | | | +--------+---------+ + + + documented as of this encounter Visit Diagnoses Not on filedocumented in this encounter"
--- OUTSIDE RECORDS SUMMARY | ~2019-10-17 | XMS | Encounter Summary ---
Demographics + + + | Address | [address] | | | [place] [address] | + + + | Home Phone [...] Providers + +------+ + | Care Plasterer Maintenance Name | Role | Phone | + [...] Naeem Mcrae | | | | | [facility] | [place], [place] | | | | | and Healing, | [address] | | | | | [facility] | [phone] | | | | | Floor [place], [place] | | | | | | [address] | | | | | | [phone] | | | +--------+ + + + [...]
--- OUTSIDE RECORDS SUMMARY | ~2019-10-17 | XMS | Encounter Summary ---
Demographics + + + | Address | [address] | | | [place] [address] | + + + | Home Phone [...] Team Providers + +------+ + | Care Textile Pin Worker Name | Role | Phone | [...] + + | 01/21/ | Telephone | [facility] | Alanis, | Pain | | 2019 | | MEDICINE [address] [place] [address] | MD Petrona | | | | | [facility] | [address] [place] [address] | | | | | [place] [address] | [place] [address] | | | | | [phone] | [phone] | | | | | | | [...] Petrona | | | | | | [facility] [address] [place] | | | | | | [place] [address] | | | | | | [phone] | | | | | | | | +--------+---------+ + + + | 12/20/ | Office | Audiology | Elisabet Munson MS | | | 2019 | Visit | | [facility] [address] | | | | | | [place] [address] [place] | | | | | | [place] [address] | | | | | | [phone] | | | | | | | | +--------+---------+ + + + | 12/20/ | Office | Otolaryngology | Ulysses Genao MD | | | 2019 | Visit | | [address] [facility] | | | | | | [address] [place], | | | | | | [place] [address] | | | | | | [phone] | | | | | | | | +--------+---------+ + + + documented as of this encounter Visit Diagnoses Not on filedocumented in this encounter"
--- OUTSIDE RECORDS SUMMARY | ~2019-10-17 | XMS | Encounter Summary ---
Demographics + + + | Address | [address] | | | [place] [address] | + + + | Home Phone [...] Providers + +------+ + | Care Hand Printed Circuit Board Assembler Name | Role | Phone | [...] + + | 06/04/ | Telephone | [facility] | Alanis, | Medication Problem | | 2016 | | MEDICINE [address] [place] [address] | MD Petrona | | | | | [facility] | [address] [place] [address] | | | | | [place] [address] | [place] [address] | | | | | [phone] | [phone] | | | | | | | [...] | | | | | [address] [facility] | | | | | | [place] [address] | | | | | | [phone] | | | | | | | | +--------+---------+ + + + | 12/20/ | Office | Audiology | Elisabet Munson MS | | | 2019 | Visit | | [facility] [address] | | | | | | [address] | | | | | | [place] [address] | | | | | | [phone] | | | | | | | | +--------+---------+ + + + | 12/20/ | Office | Otolaryngology | Ulysses Genao MD | | | 2020 | Visit | | [address] [facility] | | | | | | [address] [place], | | | | | | [place] [address] | | | | | | [phone] | | | | | | | | +--------+---------+ + + + documented as of this encounter Visit Diagnoses Not on filedocumented in this encounter"
--- OUTSIDE RECORDS SUMMARY | ~2019-10-17 | XMS | Encounter Summary ---
Demographics + + + | Address | [address] | | | [place] [address] | + + + | Home Phone [...] Team Providers + +------+ + | Care Medication Administration Professional Name | Role | Phone | [...] 2006 | Visit | Rheumatology 3245 | ASSISTANT CLINICAL DIRECTOR | (Primary Dx); | | | | TRACE Sharmila Schilling | | Fibromyalgia; | | | | Mailcode: OPC5 | | Fibromyalgia | | | | Outpatient Clinic | | | | | | Building [place], | | | | | | [place] [address] | | | | | | [phone] | | | +--------+---------+ + + + [...] discomfort- entire abd around to back. Seeing [facility] pain clinic. Fentanyl patch helped [...] + + +--------+ + + | [facility] INJECT TRIGGER | Procedures | Routin | Fibromyalgia | Ordered: 02/16/2007 | | POINTS, > 3 | | e | | | + + +--------+ + + | [facility] INJECT TRIGGER | Procedures | Routin | Fibromyalgia | Ordered: 02/16/2007 | | POINTS, > 3 | | e | Fibromyalgia | | + + +--------+ + + | [facility] INJECT TRIGGER | Procedures | Routin | [...]
--- OUTSIDE RECORDS SUMMARY | ~2019-10-17 | XMS | Encounter Summary ---
Demographics + + + | Address | [address] | | | [place] [address] | + + + | Home Phone [...] Providers + +------+ + | Care Supervisor Mail Carriers Name | Role | Phone | + [...] + + | 02/25/ | Telephone | [facility] | Alanis, | Pain | | 2019 | | MEDICINE [address] [place] [address] | MD Petrona | | | | | [facility] | [address] [place] [address] | | | | | [place] [address] | [place] [address] | | | | | [phone] | [phone] | | | | | | | [...] | | [facility] [address] [place] | | | | | | [place] [address] | | | | | | [phone] | | | | | | | | +--------+---------+ + + + | 12/20/ | Office | Audiology | Elisabet Munson MS | | | 2019 | Visit | | [facility] [address] | | | | | | [place] [address] [place] | | | | | | [place] [address] | | | | | | [phone] | | | | | | | | +--------+---------+ + + + | 12/20/ | Office | Otolaryngology | Ulysses Genao MD | | | 2019 | Visit | | [address] [facility] | | | | | | [address] [place], | | | | | | [place] [address] | | | | | | [phone] | | | | | | | | +--------+---------+ + + + documented as of this encounter Visit Diagnoses Not on filedocumented in this encounter"
--- OUTSIDE RECORDS SUMMARY | ~2019-10-17 | XMS | Encounter Summary ---
Demographics + + + | Address | [address] | | | [place] [address] | + + + | Home Phone [...] Team Providers + +------+ + | Care Abalone Sheller Name | Role | Phone | + +------+ + | Pedrito Gutierrez MD | PCP | | + +------+ + Encounter Details +--------+ + + + + | Date | Type | Department | Care Team | Description | +--------+ + + + + | 01/14/ | Telephone | [facility] | Chris Padgett, | | | 2009 | | [place] [address] | [address] [facility] | | | | | Bethanie Mailcode: CH4S | [facility] | | | | | Center for Health | [place], [place] | | | | | and Healing, | [address] | | | | | [facility] | [phone] | | | | | Floor [place], [place] | | | | | | [address] | | | | | | [phone] | | | +--------+ + + + [...]
--- OUTSIDE RECORDS SUMMARY | ~2019-10-17 | XMS | Encounter Summary ---
Demographics + + + | Address | [address] | | | [place] [address] | + + + | Home Phone [...] Providers + +------+ + | Care Living Manager Name | Role | Phone [...] | | | | CONSULT TO | [place], [place] | [address] | | | | | NEUROLOGY | [address] | for Health | | | | | | | and Healing, | | | | | | | Building [address], | | | | | | | 8th Floor | | | | | | | [place], [place] | | | | | | | [address] | | | | | | | Phone: | | | | | | | [phone] | | | | | | | Fax: | | | | | | | [phone] | +--------+--------+ + + + + Reason for Visit +--------+ + | Reason | Comments | +--------+ + | Pain | back, legs, headache | +--------+ + Encounter Details +--------+---------+ + + + | Date | Type | Department | Care Team | Description | +--------+---------+ + + + | 08/12/ | Office | [facility] Comprehensive | Delfina Molina, | Migraine Headache | | 2006 | Visit | Pain Center at | ANP | (Primary Dx); | | | | [facility] | | Spondylosis with | [...] | Fibromyalgia | | | | Floor [place], [place] | | syndrome 729.1; | | | | [address] | | Depression | | | | [phone] | | | +--------+---------+ + + + [...] Belinda Meehan is a 46 y.o. female [facility] Return Visit Chief Complaint: [...] in two weeks or PRN DELFINA MOLINA [facility] Pain Center Mail code CH 4P [facility] and [address] [place] [address] Alisha Marquez - 7 [...]
--- OUTSIDE RECORDS SUMMARY | ~2019-10-17 | XMS | Encounter Summary ---
Demographics + + + | Address | [address] | | | [place] [address] | + + + | Home Phone [...] Providers + +------+ + | Care Medical Staff Services Coordinator Name | Role | Phone [...] as of this encounter Progress Notes Interface, Anatomic Pathology Assistant In - 01/12/2005 10:09 AM PDT [id number] [facility] Date: 12/12/2004 Clinic: Endocrinology PHONE CONTACT NOTE The patient called me today after having surgery last week here at [facility]. Her concern was the development of [...] cushion which I have ordered today through [employer], phone #[phone] and fax #[phone]. Today, the patient will monitor the decubiti closely and will be in touch with myself and her other physician depending on the progress. She also still has [address], which may be removed in one or two weeks when she returns to the Surgery Clinic at [facility]. Beto Meeks M.D. PD / HS [id number] / [id number] / [id number] / [id number] cc: Chris Padgett M.D. documented i n this encounter Plan of Treatment Not on filedocumented as of this encounter Visit Diagnoses Not on filedocumented in this encounter"
--- OUTSIDE RECORDS SUMMARY | ~2019-10-17 | XMS | Encounter Summary ---
Demographics + + + | Address | [address] | | | [place] [address] | + + + | Home Phone [...] Providers + +------+ + | Care Sanitary Engineer Name | Role | Phone | [...] 08/12/ | Office | Pain Center at [facility] | Lukasz Charles, | Major Depressive | | 2006 | Visit | [address] | PhD [address] | Disorder, Recurrent | | | | Mailcode: CH15P | [place], [place] | Episode, Moderate | | | | [place] [facility] | [address] | (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 Diagnosis: [place] I: 1. (296.32) Major depressive disorder, recurrent, moderate. 2. (309.24) Adjustment disorder with anxiety. 3. 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 [place] II: Deferred [place] III: abdominal pain, migraine headache, low back pain. [place] IV: low finances [place] V: GAF 50 Plan: Return in 2 weeks. Check pacing, relaxation, activity, distraction. Ask about coping with previous headache. Continue cognitive/behavioral therapy. Total time spent with patient was approximately 45 minutes. LUKASZ CHARLES [facility] [address] [facility] [place] [address] documented in this encount er Plan of Treatment + + +--------+ + + | Name | Type | Priori | Associated Diagnoses | Order Schedule | | | | ty | | | + + +--------+ + + | [facility], | Procedures | Routin | Major [...]
--- OUTSIDE RECORDS SUMMARY | ~2019-10-17 | XMS | Encounter Summary ---
Demographics + + + | Address | [address] | | | [place] [address] | + + + | Home Phone [...] Team Providers + +------+ + | Care Compliance Vice President Name | Role | Phone [...] [id number] | | | | | | [place], [place] | | | | | | [address] | | | | | | [phone] | | | +--------+--------+ + + + [...]
--- OUTSIDE RECORDS SUMMARY | ~2019-10-17 | XMS | Encounter Summary ---
Demographics + + + | Address | [address] | | | [place] [address] | + + + | Home Phone [...] Team Providers + +------+ + | Care Veneer Joiner Name | Role | Phone | [...]
--- OUTSIDE RECORDS SUMMARY | ~2019-10-17 | XMS | Encounter Summary ---
Demographics + + + | Address | [address] | | | [place] [address] | + + + | Home Phone [...] Team Providers + +------+ + | Care Crts Name | Role | Phone | + [...] [id number] | | | | | | [place], [place] | | | | | | [address] | | | | | | [phone] | | | +--------+ + + + [...]
--- OUTSIDE RECORDS SUMMARY | ~2019-10-17 | XMS | Encounter Summary ---
Demographics + + + | Address | [address] | | | [place] [address] | + + + | Home Phone [...] Team Providers + +------+ + | Care Mergers And Acquisitions Banker Name | Role | Phone | + [...] | | | | [id number] Physician's | [place], [place] | | | | | [address] | [address] | | | | | [place], [place] | [phone] | | | | | [address] | | | | | | [phone] | | | +--------+ + + + [...]
--- OUTSIDE RECORDS SUMMARY | ~2019-10-17 | XMS | Encounter Summary ---
Demographics + + + | Address | [address] | | | [place] [address] | + + + | Home Phone [...] Providers + +------+ + | Care Bass Viol Repairer Name | Role | Phone | [...] [facility] | Alanis, | Appointment Question | | 2018 | | MEDICINE [address] [place] [address] | MD Petrona | | | | | [facility] | [address] [place] [address] | | | | | [place] [address] | [place] [address] | | | | | [phone] | [phone] | | | | | | | [...] GABRIEL | | | | | | [place] [address] | | | | | | [phone] | | | | | | | | +--------+---------+ + + + | 12/20/ | Office | Audiology | Elisabet Munson MS | | | 2019 | Visit | | [facility] [address] | | | | | | [place] [address] [place] | | | | | | [place] [address] | | | | | | [phone] | | | | | | | | +--------+---------+ + + + | 12/20/ | Office | Otolaryngology | Ulysses Genao MD | | | 2020 | Visit | | [address] [facility] | | | | | | [address] [place], | | | | | | [place] [address] | | | | | | [phone] | | | | | | | | +--------+---------+ + + + documented as of this encounter Visit Diagnoses Not on filedocumented in this encounter"
--- OUTSIDE RECORDS SUMMARY | ~2019-10-17 | XMS | Encounter Summary ---
Demographics + + + | Address | [address] | | | [place] [address] | + + + | Home Phone [...] +------+ + | Care Associate Professor Of Library Media Name | Role | Phone | + [...] as of this encounter Progress Notes Interface, Curing Finisher In - 08/19/2005 2:05 AM PST [id number] [facility] Date: 07/24/2005 Clinic: Hematology/Oncology [...] or malignancies. 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 She still smokes [...] are appreciated. No petechiae. Laboratory: Labs from [place]: Homocysteine 8.5 and SANIA negative. CBC: White [...] laboratory studies that have been obtained from [place], it does not appear that she has [...] E supplementation. Karen Gramza, Joanna Sellers M.D. electrode cleaning machine operator / HS [id number] / [id number] / [id number] / [id number] cc: Pedrito Gutierrez M.D. [facility] [address] [place] [address] FAX: [phone] Electronically signed by Lukasz Sellers 08-18-2005 01:27:53 PM documented i n this encounter Plan of Treatment Not on filedocumented as of this encounter Visit Diagnoses Not on filedocumented in this encounter"
--- OUTSIDE RECORDS SUMMARY | ~2019-10-17 | XMS | Encounter Summary ---
Demographics + + + | Address | [address] | | | [place] [address] | + + + | Home Phone [...] Team Providers + +------+ + | Care Ostrich Farmer Name | Role | Phone | [...] + | 11/26/ | Refill | [facility] | Alanis, | Medication Refill | | 2018 | | MEDICINE [address] [place] [address] | MD Petrona | | | | | [facility] | [address] [place] [address] | | | | | [place] [address] | [place] [address] | | | | | [phone] | [phone] | | | | | | | [...] | | | | | [place] [address] | | | | | | [phone] | | | | | | | | +--------+---------+ + + + | 12/20/ | Office | Audiology | Elisabet Munson MS | | | 2019 | Visit | | [facility] [address] | | | | | | [place] [address] [place] | | | | | | [place] [address] | | | | | | [phone] | | | | | | | | +--------+---------+ + + + | 12/20/ | Office | Otolaryngology | Ulysses Genao MD | | | 2019 | Visit | | [address] [facility] | | | | | | [address] [place], | | | | | | [place] [address] | | | | | | [phone] | | | | | | | | +--------+---------+ + + + documented as of this encounter Visit Diagnoses + + | Diagnosis | + + | Chronic diarrhea Diarrhea | + + documented in this encounter"
--- OUTSIDE RECORDS SUMMARY | ~2019-10-17 | XMS | Encounter Summary ---
Demographics + + + | Address | [address] | | | [place] [address] | + + + | Home Phone [...] Providers + +------+ + | Care Chief Internal Auditor Name | Role | Phone | [...] as of this encounter Progress Notes Interface, Leather Shaver In - 12/07/2005 3:08 AM [facility] [place] [address] [place] [address] or January 31, 2003 Pedrito Gutierrez M.D. [address] [place] [address] RE: BELINDA MEEHAN MR #: [id number] Dear Dr. Gutierrez: I had the pleasure [...] She had surgery 5 days ago in [place] on her right hand and wrist, for [...] time to help minimize her travel to [place]. In the meantime, please feel free to contact me if you have other questions, concerns, or suggestions regarding her condition. Sincerely, Issac Meeks M.D. automatic silk screen printer Division of Endocrinology, Diabetes, and Clinical Nutrition, Director of Metabolic Disorders Clinic [place] / SHARIF [id number] / [id number] / [id number] / Tdocumented in this encounter Plan of Treatment Not on filedocumented as of this encounter Visit Diagnoses Not on filedocumented in this encounter"
--- OUTSIDE RECORDS SUMMARY | ~2019-10-17 | XMS | Encounter Summary ---
Demographics + + + | Address | [address] | | | [place] [address] | + + + | Home Phone [...] + +------+ + | Care Rotary Cutter Operator Name | Role | Phone [...] + + | 09/04/ | Telephone | [facility] | Alanis, | Appointment Question | 2019 | | MEDICINE [address] [place] [address] | MD Petrona | | | | | [facility] | [address] [place] [address] | | | | | [place] [address] | [place] [address] | | | | | [phone] | [phone] | | | | | | | [...] GABRIEL | | | | | | [place] [address] | | | | | | [phone] | | | | | | | | +--------+---------+ + + + | 12/20/ | Office | Audiology | Elisabet Munson MS | | | 2019 | Visit | | [facility] [address] | | | | | | [place] [address] [place] | | | | | | [place] [address] | | | | | | [phone] | | | | | | | | +--------+---------+ + + + | 12/20/ | Office | Otolaryngology | Ulysses Genao MD | | | 2020 | Visit | | [address] [facility] | | | | | | [address] [place], | | | | | | [place] [address] | | | | | | [phone] | | | | | | | | +--------+---------+ + + + documented as of this encounter Visit Diagnoses Not on filedocumented in this encounter"
--- OUTSIDE RECORDS SUMMARY | ~2019-10-17 | XMS | Encounter Summary ---
Demographics + + + | Address | [address] | | | [place] [address] | + + + | Home Phone [...] Team Providers + +------+ + | Care Leaf Stripper Name | Role | Phone | [...]
--- OUTSIDE RECORDS SUMMARY | ~2019-10-17 | XMS | Encounter Summary ---
Demographics + + + | Address | [address] | | | [place] [address] | + + + | Home Phone [...] Providers + +------+ + | Care Mold Sheet Cleaner Name | Role | Phone | [...] + + | 06/28/ | Office | [facility] | Delfina Molina, | LBP (Low Back Pain); | | 2007 | Visit | Pain Center at | ANP | Encounter for | | | | [facility][Note 3]front | | Long-Term (Current) | | | | [address] | | Use of Opioids; | | | | Mailcode: CH15P | | Arthroplasty of the | | | | [place] for [facility] | | Left Knee; Bilateral | | | | and Healing, | | Knee Pain; 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 Epidural steroid injections are awhile call to schedule with Dr. Kylah SHEEHAN. documented in this encounter Progress Notes Delfina Molina - 06/28/2007 8:56 AM PSTFormatting of this note might be different from th e original. 06/28/2007 Belinda Meehan is a 47 y.o. female [facility] Comprehensive [...] be in bed so long. Son primary women's health care nurse practitioner. Current outpatient medications Medication Sig Dispense Refill [...] Collection Time Resulting Agency 05/25/2007 4:06 PM [facility] DEPARTMENT OF RADIOLOGY [...] with any concerns or questions. DELFINA MOLINA [facility] CENTER Mail code CH 4P [facility] [address] [facility] [address] Ailyn Bello 06/28/19 08 8:38 [...]
--- OUTSIDE RECORDS SUMMARY | ~2019-10-17 | XMS | Encounter Summary ---
Demographics + + + | Address | [address] | | | [place] [address] | + + + | Home Phone [...] Providers + +------+ + | Care Electrical Power Engineer Name | Role | Phone | [...] + + | 01/04/ | Office | [facility] Comprehensive | [...] | Dependence, | | | | Floor [place], [place] | | Continuous ([facility]); | | | | [address] | | Migraine Headache; | | | | [phone] | | Fibromyalgia | | | | [...] Belinda Meehan is a 46 y.o. female [facility] [...] and Independent Home Exercise Program DELFINA MOLINA [facility] Comprehensive Pain Center Mail code CH 4P [facility] and [place] [address] [facility] [address] Ailyn Foster - 01/05/20 [...] medication refills today? yes [facility] Plan of Treatment Not on filedocumented [...]
--- OUTSIDE RECORDS SUMMARY | ~2019-10-17 | XMS | Encounter Summary ---
Demographics + + + | Address | [address] | | | [place] [address] | + + + | Home Phone [...] as of this encounter Progress Notes Interface, Shipyard Laborer In - 03/29/2005 5:05 AM PDT [id number] [facility] Date: 03/20/2005 Clinic: Rheumatology [...] and sense of disability is 5/10. Her piano case maker needs a note from me that she [...] for the diagnosis of fibromyalgia by the [employer]. She also has the [...] to treat restless legs. There is a terra cotta setter in [place] who is using large doses to reduce [...] 4 months. Caitlin Rivera M.S., F.N.P. / [id number] / [id number] / [id number] / [id number] cc: Pedrito Gutierrez M.D. [address] [place] [address] Belinda Meehan [address] [facility] [place] [address] Electronically signed by Caitlin Rivera 03-28-2005 01:43:14 PM documented i n this encounter Plan of Treatment Not on filedocumented as of this encounter Visit Diagnoses Not on filedocumented in this encounter"
--- OUTSIDE RECORDS SUMMARY | ~2019-10-17 | XMS | Encounter Summary ---
Demographics + + + | Address | [address] | | | [place] [address] | + + + | Home Phone [...] Providers + +------+ + | Care Customs Director Name | Role | Phone | [...] Required | | | i, | [address] | | | | | osteoporosis | Sulaiman-Russell | [place], | | | | | without | , MD [address] | [place] [address] | | | | | current | [address] | Phone: | | | | | pathological | [place], | [phone] | | | | | fracture | [place] | Fax: | | | | | | [address] | [phone] | | | | | | Phone: | | | | | | | [phone] | | | | | | | Fax: | | | | | | | [phone] | | +--------+ + + + + + Reason for Visit + + + | Reason | Comments | + + + | Medication Orders | | + + + Encounter Details +--------+ + + + + | Date | Type | Department | Care Team | Description | +--------+ + + + + | 09/20/ | Telephone | [facility] | Alanis, | Medication Orders | | 2019 | | MEDICINE [address] [place] [address] | MD Petrona | | | | | [facility] | [address] [place] [address] | | | | | [place] [address] | [place] [address] | | | | | [phone] | [phone] | | | | | | | [...] | | | | | [place] [address] | | | | | | [phone] | | | | | | | | +--------+---------+ + + + | 12/20/ | Office | Audiology | Elisabet Munson MS | | | 2019 | Visit | | [facility] | | | | | | [address] | | | | | | [place] [address] | | | | | | [phone] | | | | | | | | +--------+---------+ + + + | 12/20/ | Office | Otolaryngology | Ulysses Genao MD | | | 2019 | Visit | | [address] [place] | | | | | | [address] [place], | | | | | | [place] [address] | | | | | | [phone] | | | | | | | [...]
--- OUTSIDE RECORDS SUMMARY | ~2019-10-17 | XMS | Encounter Summary ---
Demographics + + + | Address | [address] | | | [place] [address] | + + + | Home Phone [...] Providers + +------+ + | Care Mud Analysis Operator Name | Role | Phone | [...] + + | 11/22/ | Refill | [facility] | Alanis, | Medication Refill | | 2018 | | MEDICINE [address] [place] [address] | MD Petrona | | | | | [facility] | [address] [place] [address] | | | | | [place] [address] | [place] [address] | | | | | [phone] | [phone] | | | | | | | [...] | | | | | [place] [address] | | | | | | [phone] | | | | | | | | +--------+---------+ + + + | 12/20/ | Office | Audiology | Elisabet Munson MS | | | 2019 | Visit | | [facility] [address] | | | | | | [place] [address] [place] | | | | | | [place] [address] | | | | | | [phone] | | | | | | | | +--------+---------+ + + + | 12/20/ | Office | Otolaryngology | Ulysses Genao MD | | | 2020 | Visit | | [address] [facility] | | | | | | [address] [place], | | | | | | [place] [address] | | | | | | [phone] | | | | | | | | +--------+---------+ + + + documented as of this encounter Visit Diagnoses Not on filedocumented in this encounter"
--- OUTSIDE RECORDS SUMMARY | ~2019-10-17 | XMS | Encounter Summary ---
Demographics + + + | Address | [address] | | | [place] [address] | + + + | Home Phone [...] Team Providers + +------+ + | Care Creative Technologist Name | Role | Phone | [...] + | 03/03/ | Telephone | [facility] | Alanis, | Medication Question | | 2017 | | MEDICINE [address] [place] [address] | MD Petrona | | | | | [facility] | [address] [place] [address] | | | | | [place] [address] | [place] [address] | | | | | [phone] | [phone] | | | | | | | [...] | | | | | [place] [address] | | | | | | [phone] | | | | | | | | +--------+---------+ + + + | 12/20/ | Office | Audiology | Elisabet Munson MS | | | 2019 | Visit | | [facility] [address] | | | | | | [address] [place] | | | | | | [place] [address] | | | | | | [phone] | | | | | | | | +--------+---------+ + + + | 12/20/ | Office | Otolaryngology | Ulysses Genao MD | | | 2020 | Visit | | [address] [facility] | | | | | | [address] [place], | | | | | | [place] [address] | | | | | | [phone] | | | | | | | | +--------+---------+ + + + documented as of this encounter Visit Diagnoses Not on filedocumented in this encounter"
--- OUTSIDE RECORDS SUMMARY | ~2019-10-17 | XMS | Encounter Summary ---
Demographics + + + | Address | [address] | | | [place] [address] | + + + | Home Phone [...] Providers + +------+ + | Care Molder Sweep Name | Role | Phone | + [...] 2016 | | NEUROLOGY [place] | [address] | | | | | [address] [facility], | [address] | | | | | [address] [place] | [place] | | | | | [place] [address] | [address] | | | | | [phone] | | | +--------+ + + + [...] | | | | | [place] [address] | | | | | | [phone] | | | | | | | | +--------+---------+ + + + | 12/20/ | Office | Audiology | Elisabet Munson MS | | | 2019 | Visit | | [facility] [address] | | | | | | [address] [place] | | | | | | [place] [address] | | | | | | [phone] | | | | | | | | +--------+---------+ + + + | 12/20/ | Office | Otolaryngology | Ulysses Genao MD | | | 2019 | Visit | | [address] [place] | | | | | | [address] [place], | | | | | | [place] [address] | | | | | | [phone] | | | | | | | | +--------+---------+ + + + documented as of this encounter Visit Diagnoses Not on filedocumented in this encounter"
--- OUTSIDE RECORDS SUMMARY | ~2019-10-17 | XMS | Encounter Summary ---
Demographics + + + | Address | [address] | | | [place] [address] | + + + | Home Phone [...] Providers + +------+ + | Care Edge Baster Name | Role | Phone | [...] [address] | | | | | | [place], [place] | | | | | | [address] | | | | | | [phone] | | | +--------+ + + + [...]
--- OUTSIDE RECORDS SUMMARY | ~2019-10-17 | XMS | Encounter Summary ---
Demographics + + + | Address | [address] | | | [place] [address] | + + + | Home Phone [...] Team Providers + +------+ + | Care Drug Counselor Name | Role | Phone | [...] + + | 03/31/ | Office | [facility] | Petra Delfina, | Encounter for | | 2006 | Visit | Pain Center at | ANP | [facility]Current) | | | | [facility] | | Use of Opioids; Left | | | | [address] | | Knee Pain; | | | | Mailcode: CH15P | | Arthroplasty of the | | | | [facility] | | Left Knee; DJD | | | | and Healing, | | (Degenerative Joint | | | | | | Disease) of Knee; | | | | Floor [place], [place] | | Fibromyalgia | | | | [address] | | syndrome 729.1; | | | | [phone] | | Adjustment Disorder | | | [...] is a 47 y.o. female [facility] Pain Center Return Visit Chief Complaint: [...] value in her continuing here at the [facility] Center until her bilateral knee surgical [...] with any concerns or questions. DELFINA MOLINA [facility] Mail code CH 4P [facility] and [address] [address] Tasha Can - 03/31/2007 9:15 [...]
--- OUTSIDE RECORDS SUMMARY | ~2019-10-17 | XMS | Encounter Summary ---
Demographics + + + | Address | [address] | | | [place] [address] | + + + | Home Phone [...] Team Providers + +------+ + | Care Presentation Designer Name | Role | Phone | [...] as of this encounter Progress Notes Interface, Lay Out Former In - 01/11/2005 8:56 PM PDTClinic Date: [...] bypass surgery and will be admitted to [facility] for this procedure on November 22, [...] Ester Romero M.D. Issac Meeks M.D. / [id number] / [id number] / [id number] / [id number] Tdocumented in this encounter Plan of Treatment Not on filedocumented as of this encounter Visit Diagnoses Not on filedocumented in this encounter"
--- OUTSIDE RECORDS SUMMARY | ~2019-10-17 | XMS | Encounter Summary ---
Demographics + + + | Address | [address] | | | [place] [address] | + + + | Home Phone [...] Team Providers + +------+ + | Care Fat Pressroom Worker Name | Role | Phone | [...] + | 03/02/ | Telephone | [facility] | Alanis, | Results, Imaging | | 2017 | | MEDICINE [address] | MD Petrona | | | | | [facility] | [address] [place] [address] | | | | | [place] [address] | [place] [address] | | | | | [phone] | [phone] | | | | | | | [...] [place]RIEL | | | | | | [place] [address] | | | | | | [phone] | | | | | | | | +--------+---------+ + + + | 12/20/ | Office | Audiology | Elisabet Munson MS | | | 2019 | Visit | | [facility] [address] | | | | | | [place] [address] [place] | | | | | | [place] [address] | | | | | | [phone] | | | | | | | | +--------+---------+ + + + | 12/20/ | Office | Otolaryngology | Ulysses Genao MD | | | 2020 | Visit | | [address] [facility] | | | | | | [address] [place], | | | | | | [place] [address] | | | | | | [phone] | | | | | | | | +--------+---------+ + + + documented as of this encounter Visit Diagnoses Not on filedocumented in this encounter"
--- OUTSIDE RECORDS SUMMARY | ~2019-10-17 | XMS | Encounter Summary ---
Demographics + + + | Address | [address] | | | [place] [address] | + + + | Home Phone [...] Team Providers + +------+ + | Care 2Nd Pressman Name | Role | Phone | + [...] + + | 12/10/ | Telephone | [facility] | Alanis, | Lab Results | | 2017 | | MEDICINE [address] [place] [address] | MD Petrona | | | | | [facility] | [address] [place] [address] | | | | | [place] [address] | [place] [address] | | | | | [phone] | [phone] | | | | | | | [...] | | | | | [place] [address] | | | | | | [phone] | | | | | | | | +--------+---------+ + + + | 12/20/ | Office | Audiology | Elisabet Munson MS | | | 2020 | Visit | | [facility] [address] | | | | | | [address] [place] [address] [place] | | | | | | [place] [address] | | | | | | [phone] | | | | | | | | +--------+---------+ + + + | 12/20/ | Office | Otolaryngology | Ulysses Genao MD | | | 2020 | Visit | | [address] [place] | | | | | | [address] [place], | | | | | | [place] [address] | | | | | | [phone] | | | | | | | | +--------+---------+ + + + documented as of this encounter Visit Diagnoses Not on filedocumented in this encounter"
--- OUTSIDE RECORDS SUMMARY | ~2019-10-17 | XMS | Encounter Summary ---
Demographics + + + | Address | [address] | | | [place] [address] | + + + | Home Phone [...] as of this encounter Progress Notes Interface, Radio Presenter In - 08/22/2005 2:06 AM PST [id number] [facility] Date: 07/31/2005 Clinic: Surgery [...] exploratory laparotomy. Plan: Emergency supply approved by [facility] in [place]. Quantity 35 was requested and will be filled. I will send a prescription for 40 additional oxycodone 5 mg. The patient will be seen in clinic in one week. Melisa Thorne / SHARIF [id number] / [id number] / [id number] / [id number] Electronically signed by Kenisha [place] 08-21-2005 07:00:10 PM documented corrie cortes this encounter Plan of Treatment Not on filedocumented as of this encounter Visit Diagnoses Not on filedocumented in this encounter"
--- OUTSIDE RECORDS SUMMARY | ~2019-10-17 | XMS | Encounter Summary ---
Demographics + + + | Address | [address] | | | [place] [address] | + + + | Home Phone [...] Team Providers + +------+ + | Care Personal Investment Adviser Name | Role | Phone | [...] | | | | sciatica | [place] [address] | | | | | | S/P lumbar | Phone: | | | | | | fusion | [phone] | | | | | | Sacroiliac | Fax: | | | | | | inflammation | [phone] | | | | | | (HCC) [...] | | | | sciatica | [place] [address] | [address] | | | | | S/P lumbar | Phone: | Phone: | | | | | fusion | [phone] | [phone] | | | | | Sacroiliac | Fax: | Fax: | | | | | inflammation | [phone] | [phone] | | | | | ([facility], LOCATED [...] | | sciatica | [address] | [address] Phone: | | | | | | [place], | [phone] | | | | | | [place] | Fax: | | | | | | [address] | [phone] | | | | | | Phone: | | | | | | | [phone] | | | | | | | Fax: | | | | | | | [phone] | | +--------+ + + + + + Encounter Details +--------+---------+ + + + | Date | Type | Department | Care Team | Description | +--------+---------+ + + + | 09/23/ | Office | [facility] | Lencho Rivas, | Sacroiliac | | 2019 | Visit | PHYSIATRY [address] | PA-C [address] | inflammation (HCC) | | | | [address] | [address] [place] | (Primary Dx); Acute | | | | [place] [address] | [place] [address] | midline low back | | | | [address] | [phone] | pain with bilateral | | | | [phone] | | sciatica; S/P lumbar | | [...] 9:20 AM PDTReferral to michelle james ([facility]). Referral to massage therapy. Due to [...] press against a nerve. Date Last Reviewed: 08/13/201719997435-0411 [employer]. [address] [place] [address]. All righ ts reserved. This information is not intended as a substitute for professional medical care. Always follow your healthcare professional's instructions. documented in this encounter Progress Notes Lencho Rivas PA-C - 09/23/2018 9:20 AM PDTFormatting of this note might be different fro m the original. Lencho Rivas PA-C [address] [place] [address], [address] [place] [address] FAX: CHIEF COMPLAINT: Chief Complaint Patient presents [...] Common migraine COPD (chronic obstructive pulmonary disease) ([facility]) Depression Diarrhea Dumping syndrome Fall at home Fatigue fracture of vertebra Fibromyalgia Full dentures GERD (gastroesophageal reflux disease) Glaucoma Hyperparathyroidism ([facility]) Hypothyroidism IBS (irritable bowel syndrome) Idiopathic scoliosis Leg edema Low back pain Lumbar postlaminectomy syndrome Lumbar radiculopathy primarily right 01/04/2015 Meniere syndrome Migraine with aura Migraines Muscle cramping Muscle spasm Myalgia Nausea Nonalcoholic hepatosteatosis Obesity Opioid dependence ([facility]) Orthostatic hypotension OLIVER (obstructive sleep apnea) Osteoarthritis, generalized Osteopenia Osteoporosis Palpitations Peripheral neuropathy Rheumatoid arthritis ([facility]) Right arm pain 01/04/2015 RLS (restless legs [...] Procedure: COLONOSCOPY; Surgeon: Luther Brito MD; Location: [facility] DILATION AND CURETTAGE OF UTERUS ELBOW SURGERY FINGER TRIGGER RELEASE 2003 FINGER TRIGGER RELEASE 2010 GASTRIC BYPASS SURGERY 2004 HYSTERECTOMY 05/14/1980 JOINT REPLACEMENT Bilateral 2007 2008 KNEE ARTHROSCOPY 2005 LAPAROSCOPY 01/27/2015 LAPAROTOMY 2008 ROTATOR CUFF REPAIR 2005 SPINE SURGERY TONSILLECTOMY 1964 UPPER GASTROINTESTINAL ENDOSCOPY N/A 12/18/2017 Procedure: EGD; Surgeon: Luther Brito MD; Location: [facility] CURRENT MEDICATIONS: Current [...] (See Comments) Confused and questionable for seizures Rucfivrhou-Ahfx-Idehscmh Hives and Rash Cephalexin Hives Ciprofloxacin Hives [...] has no apparent deficits with short or group home memory. Cranial nerves 2-12 appear grossly intact. [...] currently enrolled in a pain clinic in [place], [place]. 5) Patient will follow up with [...] | | | | | [place] [address] | | | | | | [phone] | | | | | | | | +--------+---------+ + + + | 12/20/ | Office | Audiology | Elisabet Munson MS | | | 2019 | Visit | | [facility] [address] | | | | | [address] [place] | | | | | | [place] [address] | | | | | | [phone] | | | | | | | | +--------+---------+ + + + | 12/20/ | Office | Otolaryngology | Ulysses Genao MD | | | 2019 | Visit | | [address] [place] | | | | | | [address] [place], | | | | | | [place] [address] | | | | | | [phone] | | | | | | | [...]
--- OUTSIDE RECORDS SUMMARY | ~2019-10-17 | XMS | Encounter Summary ---
Demographics + + + | Address | [address] | | | [place] [address] | + + + | Home Phone [...] Providers + +------+ + | Care Baby Sitter Name | Role | Phone | [...] floor | | | | | | [place], [place] | | | | | | [address] | | | | | | [phone] | | | +--------+------+ + + + [...] + + + + | [facility] | [address] [facility] | [place] [address] | | | PATHOLOGY | [address] | | | + + + + + | [facility] | [address] [facility] | [place] [address] | | | PATHOLOGY | [address] [...] Performed At | + + + | [id number] Estimated GFR > 60 mL/min/1.73 sq m if non- | [facility] | | [place] [id number] Estimated GFR > 60 mL/min/1.73 sq m if | DEPARTMENT OF | | [place] GFR is estimated using the MDRD equation [...] | [facility] | [address] | [place] [address] | | | PATHOLOGY | [address] | | | + + + + + | [facility] | [address] | [place] [address] | | | PATHOLOGY | [address] [...] ([address] [facility]) | | | [place] [address] [facility] | | | [place] [address] | | + + + + + + + + | Performing | Address | City/State/Zipcode | Phone Number | | Organization | | | | + + + + + | [facility] | [address] | [place] [address] | | | LABORATORY | | | [...] ([address] [facility]) | | | [facility] [place] [address] | | | [place] [address] | | + + + + + + + + | Performing | Address | City/State/Zipcode | Phone Number | | Organization | | | | + + + + + | [facility] | [address] | [place] [address] | | | LABORATORY | | | | + + + + + documented in this encounter Visit Diagnoses + + | Diagnosis | + + | Hypothyroidism Unspecified hypothyroidism | + + | Edema | + + documented in this encounter"
--- OUTSIDE RECORDS SUMMARY | ~2019-10-17 | XMS | Encounter Summary ---
Demographics + + + | Address | [address] | | | [place] [address] | + + + | Home Phone [...] Providers + +------+ + | Care Customs Consultant Name | Role | Phone | [...] + | 02/17/ | Refill | [facility] | Alanis, | Medication Refill | | 2018 | | MEDICINE [address] [place] [address] | MD Petrona | | | | | [facility] | [address] [place] [address] | | | | | [place] [address] | [place] [address] | | | | | [phone] | [phone] | | | | | | | [...] | | | | | [place] [address] | | | | | | [phone] | | | | | | | | +--------+---------+ + + + | 12/20/ | Office | Audiology | Elisabet Munson MS | | | 2019 | Visit | | [facility] [address] | | | | | | [place] [address] [place] | | | | | | [place] [address] | | | | | | [phone] | | | | | | | | +--------+---------+ + + + | 12/20/ | Office | Otolaryngology | Ulysses Genao MD | | | 2019 | Visit | | [address] [facility] | | | | | | [address] [place], | | | | | | [place] [address] | | | | | | [phone] | | | | | | | | +--------+---------+ + + + documented as of this encounter Visit Diagnoses + + | Diagnosis | + + | Chest pain, unspecified type | + + documented in this encounter"
--- OUTSIDE RECORDS SUMMARY | ~2019-10-17 | XMS | Encounter Summary ---
Demographics + + + | Address | [address] | | | [place] [address] | + + + | Home Phone [...] Providers + +------+ + | Care Manager Payment Name | Role | Phone | + +------+ + | Sulaiman Carrera MD | PCP | | + +------+ + Encounter Details +--------+ + + + + | Date | Type | Department | Care Team | Description | +--------+ + + + + | 08/09/ | Hospital | Diagnostic Imaging | | | | 2013 | Encounter | Services at [facility] | | | | | | [address] | | | | | | Clementina Winkler [facility] | | | | | | [facility], [address] [place] [address] | | | | | | [place], [place] | | | | | | [address] | | | | | | [phone] | | | +--------+ + + + [...]
--- OUTSIDE RECORDS SUMMARY | ~2019-10-17 | XMS | Encounter Summary ---
Demographics + + + | Address | [address] | | | [place] [address] | + + + | Home Phone [...] Providers + +------+ + | Care Retail Store Assistant Name | Role | Phone | [...] + | 06/11/ | Refill | [facility] | Alanis, | Medication Refill | | 2017 | | MEDICINE [address] [place] [address] | MD Petrona | | | | | [facility] | [address] [place] [address] | | | | | [place] [address] | [place] [address] | | | | | [phone] | [phone] | | | | | | | [...] | | | | | [place] [address] | | | | | | [phone] | | | | | | | | +--------+---------+ + + + | 12/20/ | Office | Audiology | Elisabet Munson MS | | | 2019 | Visit | | [facility] [address] | | | | | | [place] [address] [place] | | | | | | [place] [address] | | | | | | [phone] | | | | | | | | +--------+---------+ + + + | 12/20/ | Office | Otolaryngology | Ulysses Genao MD | | | 2020 | Visit | | [address] [facility] | | | | | | [address] [place], | | | | | | [place] [address] | | | | | | [phone] | | | | | | | | +--------+---------+ + + + documented as of this encounter Visit Diagnoses Not on filedocumented in this encounter"
--- OUTSIDE RECORDS SUMMARY | ~2019-10-17 | XMS | Encounter Summary ---
Demographics + + + | Address | [address] | | | [place] [address] | + + + | Home Phone [...] Providers + +------+ + | Care Hydraulic Press In Operator Name | Role | Phone | [...] + | 08/23/ | Telephone | [facility] | Alanis, | Medication Follow-up | | 2019 | | [address] | MD Petrona | (Prior | | | | [facility] | [address] [place] [address] | Authorization | | | | [place] [id number] | [place] [address] | needed) | | | | [phone] | [phone] | | | | | | | [...] | | | | | [address] [facility] | | | | | | [place] [address] | | | | | | [phone] | | | | | | | | +--------+---------+ + + + | 12/20/ | Office | Audiology | Elisabet Munson MS | | | 2019 | Visit | | [facility] [address] | | | | | [address] [place] [address] [place] | | | | | | [place] [address] | | | | | | [phone] | | | | | | | | +--------+---------+ + + + | 12/20/ | Office | Otolaryngology | Ulysses Genao MD | | | 2019 | Visit | | [address] | | | | | | [address] [place], | | | | | | [place] [address] | | | | | | [phone] | | | | | | | | +--------+---------+ + + + documented as of this encounter Visit Diagnoses Not on filedocumented in this encounter"
--- OUTSIDE RECORDS SUMMARY | ~2019-10-17 | XMS | Encounter Summary ---
Demographics + + + | Address | [address] | | | [place] [address] | + + + | Home Phone [...] Team Providers + +------+ + | Care Fugitive Investigator Name | Role | Phone | [...] | | | | | [address] [facility] | | | | | | [place], [place] | | | | | | [address] | | | | | | [phone] | | | +--------+ + + + [...] | | | | | [place] [address] | | | | | | [phone] | | | | | | | | +--------+---------+ + + + | 12/20/ | Office | Audiology | Elisabet Munson MS | | | 2019 | Visit | | [facility] [address] | | | | | [address] [place] | | | | | | [place] [address] | | | | | | [phone] | | | | | | | | +--------+---------+ + + + | 12/20/ | Office | Otolaryngology | Ulysses Genao MD | | | 2019 | Visit | | [address] | | | | | | [address] [place], | | | | | | [place] [address] | | | | | | [phone] | | | | | | | | +--------+---------+ + + + documented as of this encounter Visit Diagnoses Not on filedocumented in this encounter"
--- OUTSIDE RECORDS SUMMARY | ~2019-10-17 | XMS | Encounter Summary ---
Demographics + + + | Address | [address] | | | [place] [address] | + + + | Home Phone [...] Providers + +------+ + | Care Store Facility Technician Name | Role | Phone | [...] | ANP | | | | | [facility] | | | | | | [address] | | | | | | Mailcode: CH15P | | | | | | [facility] | | | | | | and Healing, | | | | | | Building | | | | | | Floor [place], [place] | | | | | | [address] | | | | | | [phone] | | | +--------+ + + + [...]
--- OUTSIDE RECORDS SUMMARY | ~2019-10-17 | XMS | Encounter Summary ---
Demographics + + + | Address | [address] | | | [place] [address] | + + + | Home Phone [...] Providers + +------+ + | Care Drywall Finishing Foreman Name | Role | Phone | [...] | | | | | (degenerativ | [place], [place] | [place] | | | | | e joint | [address] | [address] | | | | | disease) of | | Phone: | | | | | knee Knee | | [phone] | | | | | pain Major | | Fax: | | | | | depressive | | [phone] | | | | | disorder, | [...] + + + + | 04/20/ | Vice President Of Brand Management | [facility] Comprehensive | Miranda Lambert, | LBP (Low Back Pain); | | 2006 | | Pain Center at | ANP | DJD (Degenerative | | | | [facility] | | Joint Disease) of | | | | [address] | | Knee; Bilateral Knee | | | | Mailcode: CH15P | | Pain; Major | | | | [facility] | | Depressive Disorder, | | | | and Healing, | | Recurrent Episode, | | | | Building | | Moderate ([facility]); | | | | Floor [place], [place] | | Adjustment Disorder | | | | [address] | | with Anxiety; | | | | [phone] | | Spondylosis with | | | [...]
--- OUTSIDE RECORDS SUMMARY | ~2019-10-17 | XMS | Encounter Summary ---
Demographics + + + | Address | [address] | | | [place] [address] | + + + | Home Phone [...] Providers + +------+ + | Care Laborer Wood Preserving Plant Name | Role | Phone | [...] + + | 04/19/ | Telephone | [facility] | Alanis, | Lab Results | | 2019 | | MEDICINE [address] [place] [address] | MD Petrona | | | | | [facility] | [address] [place] [address] | | | | | [place] [address] | [place] [address] | | | | | [phone] | [phone] | | | | | | | [...] | | | | | [place] [address] | | | | | | [phone] | | | | | | | | +--------+---------+ + + + | 12/20/ | Office | Audiology | Elisabet Munson MS | | | 2020 | Visit | | [facility] [address] | | | | | | [address] [place] [address] [place] | | | | | | [place] [address] | | | | | | [phone] | | | | | | | | +--------+---------+ + + + | 12/20/ | Office | Otolaryngology | Ulysses Genao MD | | | 2020 | Visit | | [address] [place] | | | | | | [address] [place], | | | | | | [place] [address] | | | | | | [phone] | | | | | | | | +--------+---------+ + + + documented as of this encounter Visit Diagnoses Not on filedocumented in this encounter"
--- OUTSIDE RECORDS SUMMARY | ~2019-10-17 | XMS | Encounter Summary ---
Demographics + + + | Address | [address] | | | [place] [address] | + + + | Home Phone [...] Team Providers + +------+ + | Care Contracts Analyst Name | Role | Phone | [...] + + | 08/04/ | Refill | [facility] | Alanis, | Medication Refill | | 2017 | | MEDICINE [address] [place] [address] | MD Petrona | | | | | [facility] | [address] [place] [address] | | | | | [place] [address] | [place] [address] | | | | | [phone] | [phone] | | | | | | | [...] | | | | | [place] [address] | | | | | | [phone] | | | | | | | | +--------+---------+ + + + | 12/20/ | Office | Audiology | Elisabet Munson MS | | | 2019 | Visit | | [facility] [address] | | | | | | [place] [address] [place] | | | | | | [place] [address] | | | | | | [phone] | | | | | | | | +--------+---------+ + + + | 12/20/ | Office | Otolaryngology | Ulysses Genao MD | | | 2020 | Visit | | [address] [facility] | | | | | | [address] [place], | | | | | | [place] [address] | | | | | | [phone] | | | | | | | | +--------+---------+ + + + documented as of this encounter Visit Diagnoses Not on filedocumented in this encounter"
--- OUTSIDE RECORDS SUMMARY | ~2019-10-17 | XMS | Encounter Summary ---
Demographics + + + | Address | [address] | | | [place] [address] | + + + | Home Phone [...] Providers + +------+ + | Care Specialty Sales Consultant Name | Role | Phone [...] + + | 08/03/ | Telephone | [facility] | Alanis, | Personal Problem | | 2019 | | MEDICINE [address] [place] [address] | MD Petrona | (Rash in private | | | | [facility] | [address] [facility] | [facility]) | | | | [place] [address] | [place] [address] | | | | | [phone] | [phone] | | | | | | | [...] | | | | | [place] [address] | | | | | | [phone] | | | | | | | | +--------+---------+ + + + | 12/20/ | Office | Audiology | Elisabet Munson MS | | | 2019 | Visit | | [facility] [address] | | | | | [address] [place] | | | | | | [place] [address] | | | | | | [phone] | | | | | | | | +--------+---------+ + + + | 12/20/ | Office | Otolaryngology | Ulysses Genao MD | | | 2019 | Visit | | [address] | | | | | | [address] [place], | | | | | | [place] [address] | | | | | | [phone] | | | | | | | | +--------+---------+ + + + documented as of this encounter Visit Diagnoses Not on filedocumented in this encounter"
--- OUTSIDE RECORDS SUMMARY | ~2019-10-17 | XMS | Encounter Summary ---
Demographics + + + | Address | [address] | | | [place] [address] | + + + | Home Phone [...] Team Providers + +------+ + | Care Goldsmith Apprentice Name | Role | Phone | [...] Pavilion | | | | | | [place], [place] | | | | | | [address] | | | | | | [phone] | | | +--------+ + + + [...]
--- OUTSIDE RECORDS SUMMARY | ~2019-10-17 | XMS | Encounter Summary ---
Demographics + + + | Address | [address] | | | [place] [address] | + + + | Home Phone [...] Providers + +------+ + | Care Mechanical Design Technician Name | Role | Phone [...] of this encounter Progress Notes Interface, Product Mgr In - 02/19/2005 5:04 AM PDT [id number] [facility] Date: 01/17/2005 Clinic: General [...] with Dr. Dwaine Larson. She has a drb-ruqq-kbpsm lesion at the distal aspect of her [...] closure. Devin German M.D. Dwaine Larson M.D. [facility] / [id number] / [id number] / [id number] / [id number] Electronically signed by Dwaine Larson 02-18-2005 09:15:31 AM documented i n this encounter Plan of Treatment Not on filedocumented as of this encounter Visit Diagnoses Not on filedocumented in this encounter
--- OUTSIDE RECORDS SUMMARY | ~2019-10-17 | XMS | Encounter Summary ---
Demographics + + + | Address | [address] | | | [place] [address] | + + + | Home Phone [...] | Pain | Diagnoses | Miracle, | Lamb, | | | | Management | LBP (low | NIHARIKA Jean | Lukasz Rhodes, PhD | | | | | back pain) | [address] | [address] | | | | | DJD | [address] | Ave | | | | | (degenerativ | [place], [place] | [place] | | | | | e joint | [address] | [address] | | | | | disease) of | | Phone: | | | | | knee Knee | | [phone] | | | | | pain Major | | Fax: | | | | | depressive | | [phone] | | | | | disorder, | [...] 04/13/ | Office | [facility] | Lukasz Charles, | Major Depressive | | 2007 | Visit | [address] | PhD [address] | Disorder, Recurrent | | | | Mailcode: 15P | [place], [place] | Episode, Mild (HCC); | | | | [facility] | [address] | LBP (Low Back | | | | and Healing, | [phone] | Pain); Migraine | | | | | | Headache; Adjustment | | | | Floor [place], [place] | | Disorder with | | | | [address] | | Anxiety | | | | [phone] | | | +--------+---------+ + + + [...] plans for her surgical recovery period. Diagnosis: Elmaton I: 1. (296.31) Major depressive disorder, recurrent, mild. 2. (309.24) Adjustment disorder with anxiety. 3. 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 Elmaton II: Deferred Elmaton III: abdominal pain, migraine headache, low back pain. Elmaton IV: low finances Elmaton V: GAF 55-60 Plan: return with next medical follow-up appointment. Check mood, pain, relaxation, activ ity, distraction, eating. Ask about headaches, fainting, surgery. Continue cognitive/behav ioral therapy. Total time spent with patient was approximately 45 minutes. LUKASZ CHARLES PHD [facility] [address] [facility] [address] [address] documented in this encount er Plan of Treatment + + +--------+ + + | Name | Type | Priori | Associated Diagnoses | Order Schedule | | | | ty | | | + + +--------+ + + | [facility], | Procedures | Routin | Major Depressive | Ordered: 04/13/2008 | | OFFICE (97-61) | | e | Disorder, Recurrent | [...]
--- OUTSIDE RECORDS SUMMARY | ~2019-10-17 | XMS | Encounter Summary ---
Demographics + + + | Address | [address] | | | [place] [address] | + + + | Home Phone [...] Team Providers + +------+ + | Care Pairer Substandard Name | Role | Phone | + [...] | | | Metabolism | bypass | [address] | | | | | Hypovitamino | [address], | Ave | | | | | sis D [address]12 | [address] | [place], [place] | | | | | nutritional | [place], [place] | [address] | | | | | deficiency | [address] | Phone: | | | | | Other | Phone: | [phone] | | | | | protein-jose manuel | [phone] | Fax: | | | | | nick | Fax: | [phone] | | | | | malnutrition | [phone] | | | | | | Weight | | | | | | | gain | | | | | | | Procedures | | | | | | | CONSULT TO | | | | | | | ENDO | | | | | | | [address] | | | | | | | [address] | | | +--------+--------+ + + + [...] | | | [facility] | [place], [place] | Dx); Hypothyroidism; | | | | Pavilion [address] | [address] | Essential | | | | [address] | [phone] | hypertension 401.9; | | | | [facility] | | Fibromyalgia | | | | Physician's | | syndrome 729.1 | | | | Pavilion [place], | | | | | | [place] [address] | | | | | | [phone] | | | +--------+---------+ + + + [...] Hives Mainly in the legs Clindamycin Codeine Hzzezqe-Tlryzdjucp-Iza-Caff Balance problems Fioricet W/Codeine (Elnqtymept-Vjghcmwxnc-Fsn-Cod) Keflex (Cephalexin) Morphine IM ( only in [...] U/L 41 ANION GAP 8 VITAMIN B12, [id number] pg/ml >2000 (H) HEMOGLOBIN A1C <=5.6 % [...] SERUM 15.0-85.0 pg/ml 222.9 (H) VITAMIN B12, [id number] pg/ml > 2000 HEMOGLOBIN A1C <=5.6 % [...]
--- OUTSIDE RECORDS SUMMARY | ~2019-10-17 | XMS | Encounter Summary ---
Demographics + + + | Address | [address] | | | [place] [address] | + + + | Home Phone [...] Team Providers + +------+ + | Care China Decorator Name | Role | Phone | [...] + + | 08/18/ | Office | [facility] | Alanis, | Preop examination | | 2018 | Visit | MEDICINE [address] | MD Petrona | (Primary Dx); | | | | [facility] | [address] [facility] | Trigger finger of | | | | [place] [address] | [place] [address] | all digits of left | | | | [phone] | [phone] | hand | | | | | [...] surgery tomorrow in her thumb been index finge r with Dr. Dr Jefe Cruz in [place], [place]. . She had surgery before and [...] Had a basal metabolic panel yesterday at [facility] in [place] which came back okay. REVIEW OF SYSTEMS [...] COPD (chronic obstructive pulmonary disease) ([facility]) Depression Diarrhea Dumping syndrome Fall at home Fatigue fracture of vertebra Fibromyalgia GERD (gastroesophageal reflux disease) Glaucoma Hyperparathyroidism ([facility]) Hypothyroidism IBS (irritable bowel syndrome) Idiopathic scoliosis Leg edema Low back pain Lumbar postlaminectomy syndrome Lumbar radiculopathy primarily right 01/04/2015 Meniere syndrome Migraine with aura Migraines Muscle cramping Muscle spasm Myalgia Nonalcoholic hepatosteatosis Obesity Opioid dependence ([facility]) Orthostatic hypotension OLIVER (obstructive sleep apnea) Osteoarthritis, generalized Osteopenia Osteoporosis Peripheral neuropathy ([facility]) Rheumatoid arthritis ([facility]) Right arm pain 01/04/2015 RLS (restless legs syndrome) S/P lumbar fusion 01/04/2015 Scoliosis Sleep apnea Spondylosis with myelopathy, lumbar region Stroke ([facility]) Syncope Tremor Type II or [...] (See Comments) Confused and questionable for seizures Rtoapwamkz-Rbpu-Wxxdnldt Cephalexin Hives Duloxetine Migraines and nausea Ketorolac Hives Morphine Swelling Ropinirole Hcl Hives Tramadol Hcl Nausea Only Xedlrglpbq-Fawy-Ophctyba Hives and Rash Ciprofloxacin Hives and Rash [...] Note: Parts of this documentwere created using Mosso speech recognition software. As a r esult, [...] | | | | | [place] [address] | | | | | | [phone] | | | | | | | | +--------+---------+ + + + | 12/20/ | Office | Audiology | Elisabet Munson MS | | | 2019 | Visit | | [facility] [address] | | | | | [address] [place] | | | | | | [place] [address] | | | | | | [phone] | | | | | | | | +--------+---------+ + + + | 12/20/ | Office | Otolaryngology | Ulysses Genao MD | | | 2019 | Visit | | [address] | | | | | | [address] [place], | | | | | | [place] [address] | | | | | | [phone] | | | | | | | [...]
--- OUTSIDE RECORDS SUMMARY | ~2019-10-17 | XMS | Encounter Summary ---
Demographics + + + | Address | [address] | | | [place] [address] | + + + | Home Phone [...] Team Providers + +------+ + | Care Internal Communications Manager Name | Role | Phone [...] | 2006 | Visit | [facility] | MD Darrion,PhD [address] | Deconditioning; | | | | for Health and | [address] | Physical | | | | Healing [address] | [place], [place] | Deconditioning | | | | Ave Mailcode: | [address] | | | | | [facility] [facility] | [phone] | | | | | Health and Healing, | | | | | | [facility] | | | | | | Floor [place], [place] | | | | | | [address] | | | | | | [phone] | | | +--------+---------+ + + + [...] and neurology assessment. Angel Morales M.D., Ph.D. Annual Giving Director, Surgical Maintenance Inspector Orthopedics & Cartilage Reconstruction Surgery Department of Orthopedics [email or web address] documented in this encou nter Plan [...]
--- OUTSIDE RECORDS SUMMARY | ~2019-10-17 | XMS | Encounter Summary ---
Demographics + + + | Address | [address] | | | [place] [address] | + + + | Home Phone [...] Team Providers + +------+ + | Care Feature Writer Name | Role | Phone | [...] + | 09/21/ | Refill | [facility] | Alanis, | Medication Refill | | 2019 | | MEDICINE [address] | MD Petrona | | | | | [facility] | [address] [place] [address] | | | | | [place] [address] | [place] [address] | | | | | [phone] | [phone] | | | | | | | [...] | | | | | [place] [address] | | | | | | [phone] | | | | | | | | +--------+---------+ + + + | 12/20/ | Office | Audiology | Elisabet Munson MS | | | 2019 | Visit | | [facility] [address] | | | | | | [place] [address] [place] | | | | | | [place] [address] | | | | | | [phone] | | | | | | | | +--------+---------+ + + + | 12/20/ | Office | Otolaryngology | Ulysses Genao MD | | | 2020 | Visit | | [address] [facility] | | | | | | [address] [place], | | | | | | [place] [address] | | | | | | [phone] | | | | | | | | +--------+---------+ + + + documented as of this encounter Visit Diagnoses Not on filedocumented in this encounter"
--- OUTSIDE RECORDS SUMMARY | ~2019-10-17 | XMS | Encounter Summary ---
Demographics + + + | Address | [address] | | | [place] [address] | + + + | Home Phone [...] Team Providers + +------+ + | Care Take Off Man Name | Role | Phone | [...] + | 08/23/ | Refill | [facility] | Alanis, | Medication Refill | | 2017 | | MEDICINE [address] [place] [address] | MD Petrona | | | | | [facility] | [address] [place] [address] | | | | | [place] [address] | [place] [address] | | | | | [phone] | [phone] | | | | | | | [...] | | | | | [place] [address] | | | | | | [phone] | | | | | | | | +--------+---------+ + + + | 12/20/ | Office | Audiology | Elisabet Munson MS | | | 2019 | Visit | | [facility] [address] | | | | | | [place] [address] [place] | | | | | | [place] [address] | | | | | | [phone] | | | | | | | | +--------+---------+ + + + | 12/20/ | Office | Otolaryngology | Ulysses Genao MD | | | 2020 | Visit | | [address] [facility] | | | | | | [address] [place], | | | | | | [place] [address] | | | | | | [phone] | | | | | | | | +--------+---------+ + + + documented as of this encounter Visit Diagnoses Not on filedocumented in this encounter"
--- OUTSIDE RECORDS SUMMARY | ~2019-10-17 | XMS | Encounter Summary ---
Demographics + + + | Address | [address] | | | [place] [address] | + + + | Home Phone [...] Providers + +------+ + | Care Molding Press Operator Name | Role | Phone | + +------+ + | Petrona Thapa | PCP | | | MD | | | + +------+ + Encounter Details +--------+ + + + + | Date | Type | Department | Care Team | Description | +--------+ + + + + | 09/01/ | Abstract | [facility] | Provider, | | | 2018 | | GASTROENTEROLOGY | MD Colin [address] | | | | | [address] [facility] | Sulma Kovacs. | | | | | [address] [place] [address] [place] | [place] [address] | | | | | [address] | | | | | | [phone] | | | +--------+ + + + [...] | | | | | [place] [address] | | | | | | [phone] | | | | | | | | +--------+---------+ + + + | 12/20/ | Office | Audiology | Elisabet Munson MS | | | 2019 | Visit | | [facility] [address] | | | | | [address] [place] | | | | | | [place] [address] | | | | | | [phone] | | | | | | | | +--------+---------+ + + + | 12/20/ | Office | Otolaryngology | Ulysses Genao MD | | | 2019 | Visit | | [address] | | | | | | [address] [place], | | | | | | [place] [address] | | | | | | [phone] | | | | | | | | +--------+---------+ + + + documented as of this encounter Visit Diagnoses Not on filedocumented in this encounter"
--- OUTSIDE RECORDS SUMMARY | ~2019-10-17 | XMS | Encounter Summary ---
Demographics + + + | Address | [address] | | | [place] [address] | + + + | Home Phone [...] Providers + +------+ + | Care Marine Underwriter Name | Role | Phone | + +------+ + | Sulaiman Carrera MD | PCP | | + +------+ + Encounter Details +--------+ + + + + | Date | Type | Department | Care Team | Description | +--------+ + + + + | 08/26/ | Ancillary | Registration [id number] | | | | 2006 | Registratio | TRACE [facility]rae | | | | | n | Peterson Mailcode: RPB07 | | | | | | [place], [place] | | | | | | [address] | | | | | | [phone] | | | +--------+ + + + [...]
--- OUTSIDE RECORDS SUMMARY | ~2019-10-17 | XMS | Encounter Summary ---
Demographics + + + | Address | [address] | | | [place] [address] | + + + | Home Phone [...] Team Providers + +------+ + | Care Explosives Worker Name | Role | Phone | [...] + | 05/25/ | Refill | [facility] | Alanis, | Medication Refill | | 2016 | | MEDICINE [address] [place] [address] | MD Petrona | | | | | [facility] | [address] [place] [address] | | | | | [place] [address] | [place] [address] | | | | | [phone] | [phone] | | | | | | | [...] | | | | | [place] [address] | | | | | | [phone] | | | | | | | | +--------+---------+ + + + | 12/20/ | Office | Audiology | Elisabet Munson MS | | | 2019 | Visit | | [facility] [address] | | | | | | [place] [address] [place] | | | | | | [place] [id number] | | | | | | [phone] | | | | | | | | +--------+---------+ + + + | 12/20/ | Office | Otolaryngology | Ulysses Genao MD | | | 2020 | Visit | | [address] [facility] | | | | | | [address] [place], | | | | | | [place] [address] | | | | | | [phone] | | | | | | | | +--------+---------+ + + + documented as of this encounter Visit Diagnoses Not on filedocumented in this encounter"
--- OUTSIDE RECORDS SUMMARY | ~2019-10-17 | XMS | Encounter Summary ---
Demographics + + + | Address | [address] | | | [place] [address] | + + + | Home Phone [...] Team Providers + +------+ + | Care Blender Operator Name | Role | Phone | [...] | Transcriptions | + + | Interface, Hydraulic Press Tender In - 08/06/2005 2:06 AM PST | | [id number] | | [id number] GEOVANNI Barnes | | | | Date: 07/25/2005 | | | | Attending Surgeon: Chris Padgett M.D. | | | | Maintenance Millwright(s): Bandar Langley M.D. | | | | [...] | | DT / HS | | [id number] / [id number] / [id number] / [id number] | | | | | | | | | | | | Electronically signed by Chris Padgett 08-05-2005 12:36:41 PM | + + documented in this encounter Visit Diagnoses Not on filedocumented in this encounter"
--- OUTSIDE RECORDS SUMMARY | ~2019-10-17 | XMS | Encounter Summary ---
Demographics + + + | Address | [address] | | | [place] [address] | + + + | Home Phone [...] Providers + +------+ + | Care Pool Nurse Name | Role | Phone | + +------+ + | Sulaiman Carrera MD | PCP | | + +------+ + Encounter Details +--------+ + + + + | Date | Type | Department | Care Team | Description | +--------+ + + + + | 07/30/ | Ancillary | Registration [id number] | Beto Meeks MD | | | 2006 | Registratio | [facility] | [address] | | | | n | [address] Mailcode: RPB07 | [place], [place] | | | | | [place], [place] | [address] | | | | | [address] | [phone] | | | | | [phone] | | | +--------+ + + + [...] | | | | | performed by [employer] | pg/mL | | | | | [facility]. | | | | + + + + + + + + | Specimen | + + | | + + + + + + + | Performing | Address | City/State/Zipcode | Phone Number | | Organization | | | | + + + + + | [facility] | [address] | [place] [address] | | | LABORATORY | | | [...] at: | | | | | | [address] | | | | | | [facility] | | | | | | [address] | | | | | | [email or web address] | | | | + + + + + + + + | Specimen | + + | | + + + + + + + | Performing | Address | City/State/Zipcode | Phone Number | | Organization | | | | + + + + + | [facility] | [address] | [place], [place] | | | [facility] | | [address] | | + + + + + [...] Iron and TIBC, Serum Test performed by [facility] | | | [facility]. | | + + + + + + + + | Performing | Address | City/State/Zipcode | Phone Number | | Organization | | | | + + + + + | [facility] | [address] | [place] [address] | | | LABORATORY | | | [...] | B12, SERUM | Test performed by [facility] | | | | | | Grady [...] | [facility] | [address] | [place] [address] | | | LABORATORY | | | [...] + + + + + | [facility] DEPARTMENT OF | [address] | [place] [address] | | | PATHOLOGY | [address] | | | + + + + + | [facility] DEPARTMENT OF | [address] | [place] [address] | | | PATHOLOGY | [address] [...] + + + + + | [facility] DEPARTMENT OF | [address] | [place] [address] | | | PATHOLOGY | [address] | | | + + + + + | [facility] | [facility] [address] | [place] [address] | | | PATHOLOGY | [address] [...] Performed At | + + + | [id number] Estimated GFR > 60 mL/min/1.73 sq m if non- | [facility] | | [id number] Estimated GFR > 60 mL/min/1.73 sq m [...] | + + + + + | [facility] | [address] | [place] [address] | | | PATHOLOGY | [address] | | | + + + + + | [facility] | [address] | [place] [address] | | | PATHOLOGY | [address] | | | + + + + + documented in this encounter Visit Diagnoses Not on filedocumented in this encounter"
--- OUTSIDE RECORDS SUMMARY | ~2019-10-17 | XMS | Encounter Summary ---
Demographics + + + | Address | [address] | | | [place] [address] | + + + | Home Phone [...] Providers + +------+ + | Care Film Composer Name | Role | Phone | + +------+ + | Pedrito Gutierrez MD | PCP | | + +------+ + Encounter Details +--------+ + + + + | Date | Type | Department | Care Team | Description | +--------+ + + + + | 01/11/ | Telephone | [facility] | Chris Padgett, | | | 2009 | | [place] [address] | [address] [facility] | | | | | Bethanie Mailcode: CH4S | [facility] | | | | | Center for [facility] | [place], [place] | | | | | and Healing, | [address] | | | | | Building | [phone] | | | | | Floor [place], [place] | | | | | | [address] | | | | | | [phone] | | | +--------+ + + + [...]
--- OUTSIDE RECORDS SUMMARY | ~2019-10-17 | XMS | Encounter Summary ---
Demographics + + + | Address | [address] | | | [place] [address] | + + + | Home Phone [...] Providers + +------+ + | Care Book Mender Name | Role | Phone | [...] + + | 10/16/ | Telephone | [facility] | Alanis, | Illness | | 2020 | | MEDICINE [address] | MD Petrona | | | | | [facility] | [address] [place] [address] | | | | | [place] [address] | [place] [address] | | | | | [phone] | [phone] | | | | | | | [...] | | | | | [place] [address] | | | | | | [phone] | | | | | | | | +--------+---------+ + + + | 12/20/ | Office | Audiology | Elisabet Munson MS | | | 2019 | Visit | | [facility] [address] | | | | | | [place] [address] [place] | | | | | | [place] [address] | | | | | | [phone] | | | | | | | | +--------+---------+ + + + | 12/20/ | Office | Otolaryngology | Ulysses Genao MD | | | 2020 | Visit | | [address] [facility] | | | | | | [address] [place], | | | | | | [place] [address] | | | | | | [phone] | | | | | | | | +--------+---------+ + + + documented as of this encounter Visit Diagnoses Not on filedocumented in this encounter"
--- OUTSIDE RECORDS SUMMARY | ~2019-10-17 | XMS | Encounter Summary ---
Demographics + + + | Address | [address] | | | [place] [address] | + + + | Home Phone [...] Providers + +------+ + | Care Critical Systems Technician Name | Role | Phone [...] + + | 10/16/ | Telephone | [facility] | Alanis, | Wrist Pain | | 2018 | | MEDICINE [address] [place] [address] | MD Petrona | | | | | [facility] | [address] [place] [address] | | | | | [place] [address] | [place] [address] | | | | | [phone] | [phone] | | | | | | | [...] | | | | | [place] [address] | | | | | | [phone] | | | | | | | | +--------+---------+ + + + | 12/20/ | Office | Audiology | Elisabet Munson MS | | | 2020 | Visit | | [facility] [address] | | | | | | [place] [address] [place] | | | | | | [place] [id number] | | | | | | [phone] | | | | | | | | +--------+---------+ + + + | 12/20/ | Office | Otolaryngology | Ulysses Genao MD | | | 2020 | Visit | | [address] [place] | | | | | | [address] [place], | | | | | | [place] [id number] | | | | | | [phone] | | | | | | | | +--------+---------+ + + + documented as of this encounter Visit Diagnoses Not on filedocumented in this encounter"
--- OUTSIDE RECORDS SUMMARY | ~2019-10-17 | XMS | Encounter Summary ---
Demographics + + + | Address | [address] | | | [place] [address] | + + + | Home Phone [...] Team Providers + +------+ + | Care Networker Name | Role | Phone | + [...] | | | | | Encounter | [place], [place] | [place] | | | | | for | [address] | [address] | | | | | long-term | | Phone: | | | | | (current) | | [phone] | | | | | use of other | | Fax: | | | | | medications | | [phone] | | | | | LBP (low [...] Office | [facility] at [facility] | Lukasz Charles, | Major depressive | | 2012 | Visit | [address] | PhD [address] | disorder, recurrent | | | | Mailcode: CH15P | [place], [place] | episode, moderate | | | | [place] for [facility] | [address] | ([facility]) (Primary Dx); | | | | and Healing, | [phone] | LBP (low back pain); | | | | | | Fibromyalgia; | | | | Floor [place], [place] | | Adjustment disorder | | | | [address] | | with anxiety | | | | [phone] | | | +--------+---------+ + + + [...] provider who recommended that she return to [facility] for pain assessment and treatment. She [...] some changes in her living situation. Diagnosis: [place] I: 1. (296.32) Major depressive disorder, recurrent, moderate. 2. (309.24) Adjustment disorder with anxiety. [place] II: Deferred [place] III: abdominal pain, migraine headache, low back pain, fibromyalgia. [place] IV: low finances [place] V: GAF 55-60 Plan: return in 1 month. Check mood, pain, activity. Ask about visiting with Dr. Montero, spinal cord stimulator, any changes at home. Continue cognitive/behavioral therapy. Total time spent with patient was approximately 50 minutes. LUKASZ CHARLES PHD [facility] [address] [place] [address] [place] [address] documented in this en counter Plan of [...]
--- OUTSIDE RECORDS SUMMARY | ~2019-10-17 | XMS | Encounter Summary ---
Demographics + + + | Address | [address] | | | [place] [address] | + + + | Home Phone [...] Providers + +------+ + | Care Professor Sculpture Name | Role | Phone | + [...] + + | 05/26/ | Telephone | [facility] | Alanis, | Medication Question | | 2018 | | MEDICINE [address] [place] [address] | MD Petrona | | | | | [facility] | [address] [place] [address] | | | | | [place] [address] | [place] [address] | | | | | [phone] | [phone] | | | | | | | [...] | | | | | [place] [address] | | | | | | [phone] | | | | | | | | +--------+---------+ + + + | 12/20/ | Office | Audiology | Elisabet Munson MS | | | 2019 | Visit | | [facility] [address] | | | | | | [address] [place] | | | | | | [place] [address] | | | | | | [phone] | | | | | | | | +--------+---------+ + + + | 12/20/ | Office | Otolaryngology | Ulysses Genao MD | | | 2020 | Visit | | [address] [facility] | | | | | | [address] [place], | | | | | | [place] [address] | | | | | | [phone] | | | | | | | | +--------+---------+ + + + documented as of this encounter Visit Diagnoses Not on filedocumented in this encounter"
--- OUTSIDE RECORDS SUMMARY | ~2019-10-17 | XMS | Encounter Summary ---
Demographics + + + | Address | [address] | | | [place] [address] | + + + | Home Phone [...] Team Providers + +------+ + | Care Nailing Machine Operator Automatic Name | Role | Phone | [...] + + | 12/20/ | Office | [facility] | Ulysses Genao MD | Meniere's disease of | | 2019 | Visit | OTOLARYNGOLOGY [address] | [address] | right ear (Primary | | | | [address] | [address] [place], | Dx); Benign | | | | [place] | [place] [address] | paroxysmal | | | | [address] | [phone] | positional vertigo, | | | | [phone] | | unspecified | | | | [...] tympanog ainsley were A tympanograms. Her speech office assistant receptionist threshold is 30 dB in the [...] sched uled for a Tayler maneuver in [place]. Extended time was spent with the patient.Electronic [...] | | | | | | [address] [place] [address] | | | | | | [place] [address] | | | | | | [phone] | | | | | | | | +--------+---------+ + + + | 12/20/ | Office | Audiology | Elisabet Munson MS | | | 2019 | Visit | | [facility] [address] | | | | | [address] [place] | | | | | | [place] [address] | | | | | | [phone] | | | | | | | | +--------+---------+ + + + | 12/20/ | Office | Otolaryngology | Ulysses Genao MD | | | 2019 | Visit | | [address] | | | | | | [address] [place], | | | | | | [place] [address] | | | | | | [phone] | | | | | | | | +--------+---------+ + + + documented as of this encounter Visit Diagnoses + + | Diagnosis | + + | Meniere's disease of right ear - Primary Meniere's disease, unspecified | + + | Benign paroxysmal positional vertigo, unspecified laterality | + + documented in this encounter
--- OUTSIDE RECORDS SUMMARY | ~2019-10-17 | XMS | Encounter Summary ---
Demographics + + + | Address | [address] | | | [place] [address] | + + + | Home Phone [...] Team Providers + +------+ + | Care Pairing Machine Operator Name | Role | Phone [...]
--- OUTSIDE RECORDS SUMMARY | ~2019-10-17 | XMS | Encounter Summary ---
Demographics + + + | Address | [address] | | | [place] [address] | + + + | Home Phone [...] Team Providers + +------+ + | Care Distribution Lineman Name | Role | Phone | + [...] of this encounter Progress Notes Interface, Manager Advanced In - 01/13/2005 9:03 AM PDT [id number] [facility] Date: 01/02/2005 Clinic: Endocrinology [...] months. Beto Meeks M.D. PD / HS [id number] / [id number] / [id number] / [id number] cc: Chris Padgett M.D. documented i n this encounter Plan of Treatment Not on filedocumented as of this encounter Visit Diagnoses Not on filedocumented in this encounter"
--- OUTSIDE RECORDS SUMMARY | ~2019-10-17 | XMS | Encounter Summary ---
Demographics + + + | Address | [address] | | | [place] [address] | + + + | Home Phone [...] Team Providers + +------+ + | Care Dredge Pipe Operator Name | Role | Phone | [...] | | | | Clinical Nutrition | [place], [place] | | | | | [address] | [address] | | | | | Loop Mailcode: OPC5 | [phone] | | | | | Outpatient Clinic | | | | | | [facility] | | | | | | [place] [address] | | | | | | [phone] | | | +--------+ + + + [...] + + + + + | [facility] | [address] | [place] [address] | | | LABORATORY | | | [...] | pg/mL | | | | | [facility] | | | | | | Laboratory. | | | | + + + + + + + + | Specimen | + + | | + + + + + + + | Performing | Address | City/State/Zipcode | Phone Number | | Organization | | | | + + + + + | [facility] | [address] | [place] [address] | | | LABORATORY | | | [...] + + | [facility] DEPARTMENT OF | [address] | [place] [address] | | | PATHOLOGY | [address] | | | + + + + + | [facility] DEPARTMENT OF | [address] | [place] [address] | | | PATHOLOGY | [address] [...] DEPARTMENT OF | [address] | [place] [address] | | | PATHOLOGY | [address] | | | + + + + + | [facility] DEPARTMENT OF | [address] | [place] [address] | | | PATHOLOGY | [address] | | | + + + + + documented in this encounter Visit Diagnoses Not on filedocumented in this encounter"
--- OUTSIDE RECORDS SUMMARY | ~2019-10-17 | XMS | Encounter Summary ---
Demographics + + + | Address | [address] | | | [place] [address] | + + + | Home Phone [...] Providers + +------+ + | Care Director Social Name | Role | Phone | + [...] + + | 12/28/ | Telephone | [facility] | Alanis, | Radiology | | 2018 | | MEDICINE [address] [place] [address] | MD Petrona | Appointment | | | | [facility] | [address] [place] [address] | | | | | [place] [address] | [place] [address] | | | | | [phone] | [phone] | | | | | | | [...] | | | | | [place] [address] | | | | | | [phone] | | | | | | | | +--------+---------+ + + + | 12/20/ | Office | Audiology | Elisabet Munson MS | | | 2019 | Visit | | [facility] [address] | | | | | | [address] [place] | | | | | | [place] [address] | | | | | | [phone] | | | | | | | | +--------+---------+ + + + | 12/20/ | Office | Otolaryngology | Ulysses Genao MD | | | 2020 | Visit | | [address] [place] | | | | | | [address] [place], | | | | | | [place] [address] | | | | | | [phone] | | | | | | | | +--------+---------+ + + + documented as of this encounter Visit Diagnoses Not on filedocumented in this encounter"
--- OUTSIDE RECORDS SUMMARY | ~2019-10-17 | XMS | Encounter Summary ---
Demographics + + + | Address | [address] | | | [place] [address] | + + + | Home Phone [...] Team Providers + +------+ + | Care Pill Machine Operator Name | Role | Phone [...] of this encounter Progress Notes Interface, Local Company Truck Driver In - 01/12/2005 8:09 AM PDT [id number] [facility] Date: 02/27/2004 Clinic: [facility] Subjective: The patient underwent gastric bypass surgery in November 2003 under the care of Dr. Chris Padgett here at [facility]. She has been doing well [...] been scheduled through the Sleep Clinic in [place]. Medications 1. Ranitidine 150 mg p.o. b.i.d. [...] months. Issac Meeks M.D. MONIQUE / SHARIF [id number] / [id number] / [id number] / cc: Joanna Arshad M.D. [address] [facility] [place] [address] documented i n this encounter Plan of Treatment Not on filedocumented as of this encounter Visit Diagnoses Not on filedocumented in this encounter"
--- OUTSIDE RECORDS SUMMARY | ~2019-10-17 | XMS | Encounter Summary ---
Demographics + + + | Address | [address] | | | [place] [address] | + + + | Home Phone [...] Providers + +------+ + | Care Sap Portal Consultant Name | Role | Phone | [...] + + | 01/01/ | Refill | [facility] | Alanis, | Medication Refill | | 2017 | | MEDICINE [address] [place] [address] | MD Petrona | | | | | [facility] | [address] [place] [address] | | | | | [place] [address] | [place] [address] | | | | | [phone] | [phone] | | | | | | | [...] | | | | | [place] [address] | | | | | | [phone] | | | | | | | | +--------+---------+ + + + | 12/20/ | Office | Audiology | Elisabet Munson MS | | | 2019 | Visit | | [facility] [address] | | | | | | [place] [address] [place] | | | | | | [place] [address] | | | | | | [phone] | | | | | | | | +--------+---------+ + + + | 12/20/ | Office | Otolaryngology | Ulysses Genao MD | | | 2020 | Visit | | [address] [facility] | | | | | | [address] [place], | | | | | | [place] [address] | | | | | | [phone] | | | | | | | | +--------+---------+ + + + documented as of this encounter Visit Diagnoses Not on filedocumented in this encounter"
--- OUTSIDE RECORDS SUMMARY | ~2019-10-17 | XMS | Encounter Summary ---
Demographics + + + | Address | [address] | | | [place] [address] | + + + | Home Phone [...] Providers + +------+ + | Care Water Engineer Name | Role | Phone | [...] + + | 09/14/ | Telephone | [facility] | Alanis, | Referral | | 2017 | | MEDICINE [address] [place] [address] | MD Petrona | | | | | [facility] | [address] [place] [address] | | | | | [place] [address] | [place] [address] | | | | | [phone] | [phone] | | | | | | | [...] | | | | | [place] [address] | | | | | | [phone] | | | | | | | | +--------+---------+ + + + | 12/20/ | Office | Audiology | Elisabet Munson MS | | | 2019 | Visit | | [facility] [address] | | | | | | [place] [address] [place] | | | | | | [place] [address] | | | | | | [phone] | | | | | | | | +--------+---------+ + + + | 12/20/ | Office | Otolaryngology | Ulyssse Genao MD | | | 2020 | Visit | | [address] [facility] | | | | | | [address] [place], | | | | | | [place] [address] | | | | | | [phone] | | | | | | | | +--------+---------+ + + + documented as of this encounter Visit Diagnoses Not on filedocumented in this encounter"
--- OUTSIDE RECORDS SUMMARY | ~2019-10-17 | XMS | Encounter Summary ---
Demographics + + + | Address | [address] | | | [place] [address] | + + + | Home Phone [...] as of this encounter Progress Notes Interface, Fruit Room Hand In - 01/03/2006 3:02 AM [facility] [place] [address] [address], [place] [address] or November 01, 2002 Pedrito Gutierrez M.D. [facility] [address] [place] [address] RE: BELINDA MEEHAN MR #: [id number] Dear Dr. Gutierrez: Belinda was seen in [...] referred for bariatric surgery here at [facility]. We have several physicians who [...] with Dr. Meeks. Sincerely, Maurilio Estrada M.D. KRSI / SHARIF [id number] / [id number] / [id number] / Tdocumented in this encounter Plan of Treatment Not on filedocumented as of this encounter Visit Diagnoses Not on filedocumented in this encounter"
--- OUTSIDE RECORDS SUMMARY | ~2019-10-17 | XMS | Encounter Summary ---
Demographics + + + | Address | [address] | | | [place] [address] | + + + | Home Phone [...] Providers + +------+ + | Care Director Case Name | Role | Phone | + [...] + + | 05/03/ | Telephone | [facility] | Alanis, | Medication Prior | | 2017 | | MEDICINE [address] [place] [address] | MD Petrona | Authorization | | | | [facility] | [address] [place] [address] | (Sumatriptan) | | | | [place] [address] | [place] [address] | | | | | [phone] | [phone] | | | | | | | [...] | | | | | [address] [facility] | | | | | | [place] [address] | | | | | | [phone] | | | | | | | | +--------+---------+ + + + | 12/20/ | Office | Audiology | Elisabet Munson MS | | | 2019 | Visit | | [facility] [address] | | | | | | [address] | | | | | | [place] [address] | | | | | | [phone] | | | | | | | | +--------+---------+ + + + | 12/20/ | Office | Otolaryngology | Ulysses Genao MD | | | 2020 | Visit | | [address] [facility] | | | | | | [address] [place], | | | | | | [place] [address] | | | | | | [phone] | | | | | | | | +--------+---------+ + + + documented as of this encounter Visit Diagnoses Not on filedocumented in this encounter"
--- OUTSIDE RECORDS SUMMARY | ~2019-10-17 | XMS | Encounter Summary ---
Demographics + + + | Address | [address] | | | [place] [address] | + + + | Home Phone [...] Providers + +------+ + | Care Marketing Education Teacher Name | Role | Phone [...] + | 02/17/ | Refill | [facility] | Alanis, | Medication Refill | | 2018 | | MEDICINE [address] [place] [address] | MD Petrona | | | | | [facility] | [address] [place] [address] | | | | | [place] [address] | [place] [address] | | | | | [phone] | [phone] | | | | | | | [...] | | | | | [place] [address] | | | | | | [phone] | | | | | | | | +--------+---------+ + + + | 12/20/ | Office | Audiology | Elisabet Munson MS | | | 2019 | Visit | | [facility] [address] | | | | | | [place] [address] [place] | | | | | | [place] [address] | | | | | | [phone] | | | | | | | | +--------+---------+ + + + | 12/20/ | Office | Otolaryngology | Ulysses Genao MD | | | 2019 | Visit | | [address] [facility] | | | | | | [address] [place], | | | | | | [place] [address] | | | | | | [phone] | | | | | | | | +--------+---------+ + + + documented as of this encounter Visit Diagnoses + + | Diagnosis | + + | Chest pain, unspecified type | + + documented in this encounter"
--- OUTSIDE RECORDS SUMMARY | ~2019-10-17 | XMS | Encounter Summary ---
Demographics + + + | Address | [address] | | | [place] [address] | + + + | Home Phone [...] Team Providers + +------+ + | Care Wheat Grower Name | Role | Phone | [...] + + | 03/02/ | Telephone | [facility] | Alanis, | Results, Imaging | | 2017 | | MEDICINE [address] | MD Petrona | | | | | [facility] | [address] [place] [address] | | | | | [place] [address] | [place] [address] | | | | | [phone] | [phone] | | | | | | | [...] [place]ABRIEL | | | | | | [place] [address] | | | | | | [phone] | | | | | | | | +--------+---------+ + + + | 12/20/ | Office | Audiology | Elisabet Munson MS | | | 2019 | Visit | | [facility] [address] | | | | | | [place] [address] [address] | | | | | | [place] [address] | | | | | | [phone] | | | | | | | | +--------+---------+ + + + | 12/20/ | Office | Otolaryngology | Ulysses Genao MD | | | 2020 | Visit | | [address] [facility] | | | | | | [address] [place], | | | | | | [place] [address] | | | | | | [phone] | | | | | | | | +--------+---------+ + + + documented as of this encounter Visit Diagnoses Not on filedocumented in this encounter"
--- OUTSIDE RECORDS SUMMARY | ~2019-10-17 | XMS | Encounter Summary ---
Demographics + + + | Address | [address] | | | [place] [address] | + + + | Home Phone [...] Team Providers + +------+ + | Care Electrician Sound Name | Role | Phone | + [...] Rom results of | | | | [facility] [place][Note 2] | | several radiology | | | | [address] | | studies) | | | | Mailcode: CH15P | | | | | | [facility] | | | | | | and Healing, | | | | | | Building | | | | | | Floor [place], [place] | | | | | | [address] | | | | | | [phone] | | | +--------+ + + + [...] + | NAME: BELINDA MEEHAN MR #: [id number] | [facility] | | DATE OF EXAM: [id number] [...] Armaan Rivera | | | H : [id number] : 1442 Approved By: Radiologist: | | + + + + + + + + | Performing | Address | City/State/Zipcode | Phone Number | | Organization | | | | + + + + + | [facility] | [address] | [place], [place] | | | [place] [facility] | [address] | [address] | | | TESTS | | | | + + + + + | [facility] | [address] | [place], [place] | | | TESTS | [address] | [address] | | + + + + + [...] [facility] | [address] | [place], [place] | | | [place] [facility] | [facility] | [address] | | | TESTS | | | | + + + + + | [facility] | [address] | [place], [place] | | | TESTS | [facility] | [address] | | + + + + + [...] By: Armaan Mata : | | | [id number] : 1137 Approved By: | | + + + + + + + + | Performing | Address | City/State/Zipcode | Phone Number | | Organization | | | | + + + + + | [facility] | [address] | [place], [place] | | | [place] [facility]ARE | [address] | [address] | | | TESTS | | | | + + + + + | [facility] | [address] [facility] [address] | [place], [place] | | | TESTS | [address] | [address] | | + + + + + MRI SPINE CERVICAL WO CONTRAST (10/01/2005) + + + | Impressions | Performed At | + + + | SPINE LUMBAR 2 VIEWS AT 1421 HOURS LUMBAR SPINE, 10/01/05 | [facility] | | HISTORY: Back pain. FINDINGS: AP and lateral views of the lumbar | CARE TESTS | | spine show five dvw-zcu-jenfmrx lumbar vertebrae in normal alignment | | [...] | SPONDYLOSIS. Transcribed By: Armaan Mata : [id number] : | | | 1402 Approved By: | | + + + + + + + + | Performing | Address | City/[facility] | Phone Number | | Organization | | | | + + + + + | [facility] | [address] | [place], [place] | | | [place] [facility] | [address] | [address] | | | TESTS | | | | + + + + + | [facility] | [address] | [place], [place] | | | TESTS | [address] | [address] | | + + + + + [...] | | Transcribed By: Adriana Pacheco : [id number] : 1215 Approved By: | | | | | + + + + + + + + | Performing | Address | City/State/Zipcode | Phone Number | | Organization | | | | + + + + + | [facility] | [address] | [place], [place] | | | [facility] | [address] | [address] | | | TESTS | | | | + + + + + | [facility] | [address] | [place], [place] | | | TESTS | [address] | [address] | | + + + + + [place] MRI LOWER EXTREM JT, W/O CONTRAST (08/22/2005) + + + | Impressions | Performed At | + + + | LOWER EXTREMITY JOINT RT W/O AT 1619 HOURS RIGHT KNEE MRI, | [facility] | | 08/22/05 HISTORY: Chronic posterior [...] + + | Performing | Address | City[facility] | Phone Number | | Organization | | | | + + + + + | [facility] | [address] | [place], [place] | | | [place] [facility] | [address] | [address] | | | TESTS | | | | + + + + + | [facility] | [address] | [place], [place] | | | TESTS | [address] | [address] | | + + + + + [...] [facility] | [address] | [place], [place] | | | [place] [facility]ARE | [address] | [address] | | | TESTS | | | | + + + + + | [facility] | [address] | [place], [place] | | | TESTS | [address] | [address] | | + + + + + [...] | | | By: Armaan Mata : [id number] : 1416 Approved By: | | + + + + + + + + | Performing | Address | City/State/Zipcode | Phone Number | | Organization | | | | + + + + + | [facility] | [address] | [place], [place] | | | [facility] | [address] | [address] | | | TESTS | | | [...] Armaan | | | Nicole Saenz : [id number] : 1555 Approved By: | | + + + + + + + + | Performing | Address | City/State/Zipcode | Phone Number | | Organization | | | | + + + + + | [facility] | [address] | [place], [place] | | | [facility] | [address] | [address] | | | TESTS | | | [...] Adriana | | | Aminata Pacheco : [id number] : 1505 Approved By: | | + + + + + + + + | Performing | Address | City/State/Zipcode | Phone Number | | Organization | | | | + + + + + | [facility] | [address] [facility] [address] | [place], [place] | | | [place] [facility] | [address] | [address] | | | TESTS | | | | + + + + + documented in this encounter Visit Diagnoses Not on filedocumented in this encounter"
--- OUTSIDE RECORDS SUMMARY | ~2019-10-17 | XMS | Encounter Summary ---
Demographics + + + | Address | [address] | | | [place] [address] | + + + | Home Phone [...] Providers + +------+ + | Care Manager Medical Writing Name | Role | Phone | [...] + | 05/01/ | Refill | [facility] | Alanis, | Medication Refill | | 2017 | | MEDICINE [address] [place] [address] | MD Petrona | | | | | [facility] | [address] [place] [address] | | | | | [place] [address] | [place] [address] | | | | | [phone] | [phone] | | | | | | | [...] | | | | | | [place] [address] | | | | | | [phone] | | | | | | | | +--------+---------+ + + + | 12/20/ | Office | Audiology | Elisabet Munson MS | | | 2019 | Visit | | [facility] [address] | | | | | | [place] [address] [place] | | | | | | [place] [address] | | | | | | [phone] | | | | | | | | +--------+---------+ + + + | 12/20/ | Office | Otolaryngology | Ulysses Genao MD | | | 2020 | Visit | | [address] [facility] | | | | | | [address] [place], | | | | | | [place] [address] | | | | | | [phone] | | | | | | | | +--------+---------+ + + + documented as of this encounter Visit Diagnoses Not on filedocumented in this encounter"
--- OUTSIDE RECORDS SUMMARY | ~2019-10-17 | XMS | Encounter Summary ---
Demographics + + + | Address | [address] | | | [place] [address] | + + + | Home Phone [...] Providers + +------+ + | Care Residential Real Estate Sales Manager Name | Role | Phone [...] + + | 09/14/ | Clinical | [facility] | Alanis, | B12 deficiency | | 2019 | Support | MEDICINE [address] [place] [address] | MD Petrona | | | | | [facility] | [address] [place] [address] | | | | | [place] [address] | [place] [address] | | | | | [phone] | [phone] | | | | | | | [...] as of this encounter Progress Teresa Tolbert, Principal Statistical Programmer - 09/15/2019 10:15 AM PDTFormatting of this note calderon ht be different from the original. Administrations This Visit cyanocobalamin (VITAMIN B-12) injection 1,000 mcg Admin Date 09/15/2019 Action Given Dose 1000 mcg Route Intramuscular Administered By Teresa Mitchell, Principal Statistical Programmer do cumented in this encounter Plan of Treatment +--------+---------+ + + + | Date | Type | Specialty | Care Team | Description | +--------+---------+ + + + | 11/14/ | Office | Internal Medicine | Alanis, | | 2019 | Visit | | MD Petrona | | | | | | [facility] [address] | | | | | | [place] [address] | | | | | | [phone] | | | | | | | | +--------+---------+ + + + | 12/20/ | Office | Audiology | Elisabet Munson MS | | | 2019 | Visit | | [facility] [address] | | | | | | [address] [place] | | | | | | [place] [address] | | | | | | [phone] | | | | | | | | +--------+---------+ + + + | 12/20/ | Office | Otolaryngology | Ulysses Genao MD | | | 2019 | Visit | | [address] | | | | | | [address] [place], | | | | | | [place] [address] | | | | | | [phone] | | | | | | | [...] | | | | First dose on [facility] 10/15/17 at 1215 | | | | [...]
--- OUTSIDE RECORDS SUMMARY | ~2019-10-17 | XMS | Encounter Summary ---
Demographics + + + | Address | [address] | | | [place] [address] | + + + | Home Phone [...] Providers + +------+ + | Care Administration Vice President Name | Role | Phone [...] [place] | | | | | | [place], [place] | [facility] | | | | | | [address] | [address] | | | | | | | [place], [place] | | | | | | | [address] | | | | | | | Phone: | | | | | | | [phone] | | | | | | | Fax: | | | | | | | [phone] | +--------+--------+ + + + + Encounter Details +--------+---------+ + + + | Date | Type | Department | Care Team | Description | +--------+---------+ + + + | 06/23/ | Office | [facility] Comprehensive | Adrien Smith, | Fibromyalgia | | 2013 | Visit | Pain Center at | [address] [facility] | syndrome 729.1 | | | | [facility] | [facility] [address] | (Primary Dx); LBP | | | | [address] | [place], [place] | (low back pain); | | | | Mailcode: CH15P | [address] | Chronic Bilateral | | | | [facility] | [phone] | Shoulder Pain; Post | | | | and Healing, | | laminectomy | | | | | | syndrome; Chronic | | | | Floor [place], [place] | | migraine | | | | [address] | | | | | | [phone] | | | +--------+---------+ + + + [...] suggests that fibromyalgia patients may have reduced PATTERNMAKER ALL AROUND opioid receptors (Reji is RE, et al. Decreased central mu-opioid receptor availability in fibromyalgia. J Neurosci . 27(37):74448-3, 2006Feb 24.) and there are no controlled [...] documented in our notes. ADRIEN SMITH MD Medical Administrative Assistant, [facility] Factory Process Workers, Pain Medicine Professor, Anesthesiology & Perioperative Medicine Brandon Phipps Md - 06/23/2013 2:21 PM PST [facility] Return Visit with [...] as she has worked with him [facility]. This visit can be in tandem [...] before her lumbar surgeries and recently in [place]. She has short-term relief from thes e [...] has been treated at [facility] for back pain with the following [...] Overview Note: Surgery 05/15/08 Dr Ricky Garnett [place] JEY karlos to get operative reports Osteopenia [...] and a pain drawing which I reviewed. DOLL MAKER Brief Pain Inventory: (ten= worst possible [...] knee Lumbar fusion 05/2008, ' & ' L5-Z6zxmfpc with bone spur removals Appendectomy Cholecystectomy section [...] Hives Mainly in the legs Clindamycin Codeine Itktuei-Uwqqpvwpfh-Tql-Caff Balance problems Fioricet W/Codeine (Pzxzxpkpgy-Qwksomucnm-Cvq-Cod) Keflex (Cephalexin) Morphine IM ( only in [place]) made gut pain worse 08/27/06: Trial of oral MSIR caused leg swelling Penicillins Sulfa (Sulfonamide Antibiotics) Tramadol Ms. Meehan reports no side effects. The Review of Systems provided by Ms. Meehan and documented by the [facility] was reviewed. Austyn tional comments: 1. [...] suggests that fibromyalgia patients may have reduced PATTERNMAKER ALL AROUND opioid receptors (Xavi RE, et al. Decreased central mu-opioid receptor availability in fib romyalgia. J Neurosci. 27(37):87204-8, 2006Feb 24.) and there are no controlled [...]
--- OUTSIDE RECORDS SUMMARY | ~2019-10-17 | XMS | Encounter Summary ---
Demographics + + + | Address | [address] | | | [place] [address] | + + + | Home Phone [...] Team Providers + +------+ + | Care Claims Attorney Name | Role | Phone | + +------+ + | Petrona Thapa | PCP | | | MD | | | + +------+ + Encounter Details +--------+---------+ + + + | Date | Type | Department | Care Team | Description | +--------+---------+ + + + | 12/18/ | Surgery | [facility] | Luther Brito MD | EGD | | 2018 | | MED CTR [facility] INTRA OP | [address] | | | | | [address] | [place], [place] | | | | | [place], [place] | [address] | | | | | [address] | [phone] | | | | | [phone] | | | +--------+---------+ + + + [...] You can't be awakened Date Last Reviewed: 04/01/201619998070-2952 [employer] ([employer] [address] [place] [address]. All righ ts reserved. This information is [...] | | | | | [place] [address] | | | | | | [phone] | | | | | | | | +--------+---------+ + + + | 12/20/ | Office | Audiology | Elisabet Munson MS | | | 2019 | Visit | | [facility] [address] | | | | | | [address] [place] | | | | | | [place] [address] | | | | | | [phone] | | | | | | | | +--------+---------+ + + + | 12/20/ | Office | Otolaryngology | Ulysses Genao MD | | | 2019 | Visit | | [address] | | | | | | [address] [place], | | | | | | [place] [address] | | | | | | [phone] | | | | | | | [...] 12/18/2017 | PROVATION | | 10:49 AMMRN: [id number] #: [id number] of : | | | 9Admit Type: AmbulatoryAge: 57Room: [facility] 01Gender: FemaleNote | | | Status: FinalizedAttending MD: Luther Brito , [facility]: | | | Upper GI endoscopyIndications: [...] the anesthesiologist and the | | | sewer and drain technician in the pre-procedure area in the [...] | appearing mucosa. This was traversed. The urwrt-ch-pvtquxc limb | | | was characterized by healthy appearing mucosa. The | | | jejunojejunal anastomosis was characterized by healthy | | | appearing mucosa. The uyfdubnk-zz-zaxihyr limb was not examined | | | [...] AMScope Out: | | | 11:08:34 AM [facility], [address] | | | [place] [address] | | | - Return to GI [...] |Scope Out: 11:08:34 AM | | | [facility], [address] [place], [place] | | | [address] | | + + -+ + +---------+ [...] 12/18/2017 | PROVATION | | 10:43 AMMRN: [id number] #: [id number] of : | | | 1960dmit Type: AmbulatoryAge: 57Room: [facility] 01Gender: FemaleNote | | | Status: [...] the anesthesiologist and the | | | sewer and drain technician in the pre-procedure area in the [...] Scope In: 11:12:28 AMScope Out: 11:56:57 AM [place] | | | [facility], [address] [place] [address] | | | [phone] | | | - Await pathology results. [...] |Scope Out: 11:56:57 AM | | | [facility], [address] [place] [address] | | | [address] | | + + -+ + +---------+ [...] for specific diagnostic abnormality. | | | JVR:[facility]:C2NR GROSS DESCRIPTION: Received in five parts. [...] E, "Random colon biopsies," consists of nine pink-kariim | | | tissue fragments measuring from 0.1 to 0.4 cm. Submitted all in | | | (E1). ka:CLR:samantha PERFORMING LABORATORY: Tissue processing and | | | slide preparation were performed by [facility], [address], [place] [address] (Rail Switch Operator: Stephen Jacobson, | | | Joanna CLIA#: [id number]). Professional interpretation was performed | | | by [facility], [facility], [address] [place] [address] (Rail Switch Operator: Stephen Jacobson M.D.; CLIA#: [id number]). Diagnostician: Stephen Khan | | | Kavon [...]
--- OUTSIDE RECORDS SUMMARY | ~2019-10-17 | XMS | Encounter Summary ---
Demographics + + + | Address | [address] | | | [place] [address] | + + + | Home Phone [...] Providers + +------+ + | Care Patent Chemist Name | Role | Phone | + +------+ + | Sulaiman Carrera MD | PCP | | + +------+ + Encounter Details +--------+ + + + + | Date | Type | Department | Care Team | Description | +--------+ + + + + | 02/08/ | Telephone | [facility] | Chris Padgett, | | | 2008 | | [place] [address] | [address] [facility] | | | | | [place] Mailcode: CH4S | [address] | | | | [facility] | [place], [place] | | | | | and Healing, | [address] | | | | | [place] [address], [address]th | [phone] | | | | | Floor [place], [place] | | | | | | [address] | | | | | | [phone] | | | +--------+ + + + [...]
--- OUTSIDE RECORDS SUMMARY | ~2019-10-17 | XMS | Encounter Summary ---
Demographics + + + | Address | [address] | | | [place] [address] | + + + | Home Phone [...] Providers + +------+ + | Care Financial Consultant Name | Role | Phone | [...] + | 04/26/ | Refill | [facility] | Alanis, | Medication Refill | | 2018 | | MEDICINE [address] [place] [address] | MD Petrona | | | | | [facility] | [address] [place] [address] | | | | | [place] [address] | [place] [address] | | | | | [phone] | [phone] | | | | | | | [...] | | | | | [place] [address] | | | | | | [phone] | | | | | | | | +--------+---------+ + + + | 12/20/ | Office | Audiology | Elisabet Munson MS | | | 2019 | Visit | | [facility] [address] | | | | | | [place] [address] [place] | | | | | | [place] [address] | | | | | | [phone] | | | | | | | | +--------+---------+ + + + | 12/20/ | Office | Otolaryngology | Ulysses Genao MD | | | 2020 | Visit | | [address] [facility] | | | | | | [address] [place], | | | | | | [place] [address] | | | | | | [phone] | | | | | | | | +--------+---------+ + + + documented as of this encounter Visit Diagnoses Not on filedocumented in this encounter"
--- OUTSIDE RECORDS SUMMARY | ~2019-10-17 | XMS | Encounter Summary ---
Demographics + + + | Address | [address] | | | [place] [address] | + + + | Home Phone [...] Providers + +------+ + | Care Senior Network Administrator Name | Role | Phone [...] + + | 01/18/ | Refill | [facility] | Alanis, | Medication Refill; | | 2018 | | MEDICINE [address] | MD Petrona | Medication Refill | | | | [facility] | [address] [place] [address] | | | | | [place] [address] | [place] [address] | | | | | [phone] | [phone] | | | | | | | [...] | | | | | [place] [address] | | | | | | [phone] | | | | | | | | +--------+---------+ + + + | 12/20/ | Office | Audiology | Elisabet Munson MS | | | 2019 | Visit | | [facility] [address] | | | | | | [place] [address] [place] | | | | | | [place] [address] | | | | | | [phone] | | | | | | | | +--------+---------+ + + + | 12/20/ | Office | Otolaryngology | Ulysses Genao MD | | | 2019 | Visit | | [address] | | | | | | [address] [place], | | | | | | [place] [address] | | | | | | [phone] | | | | | | | | +--------+---------+ + + + documented as of this encounter Visit Diagnoses Not on filedocumented in this encounter"
--- OUTSIDE RECORDS SUMMARY | ~2019-10-17 | XMS | Encounter Summary ---
Demographics + + + | Address | [address] | | | [place] [address] | + + + | Home Phone [...] Providers + +------+ + | Care Roll Coating Machine Operator Name | Role | Phone [...] as of this encounter Progress Notes Interface, Ranch Manager In - 01/11/2005 6:26 PM PDT Referred [...] blindness. History was obtained from the patient, [facility] medical records, and two magnetic resonance scans [...] any point. She has been seen her salesforce consultant in [facility], Dr. Lc Renteria, who by [...] and fibromyalgia. SOCIAL HISTORY: Patient lives in [facility] with her eldest son. She [...] acute distress. She does have a right-sided Swedish crutch which she uses to enter and [...] biceps, triceps, wrist extensors, finger extensors, hand anesthetist, hip flexors and extensors, and ankle, plantar, and dorsiflexors as well as knee flexors and extensors. There is no pronator drift. Reflexes are 2+ and symmetrical at the biceps, triceps, brachioradialis, patellar, and ankle regions. Toes are downgoing to plantar stimulation. Light touch and tuning fork is within normal limits in the lower extremities. Tgjslj-sk-cxbl and fine finger movements are within normal [...] Doppler ultrasound. 3. Referral to Dr. Dwaine Aimn (neuroophthalmology). 4. Check SANIA for completeness. Patient [...] Amin M.D., Neurophthalmology cc: CRYSTAL CARTER M.D. [facility] [address] [facility] [id number] signed by Interface, Ranch Manager In at 2004 6:26 PM PDTdocumented in this encounter Plan of Treatment Not on filedocumented as of this encounter Visit Diagnoses Not on filedocumented in this encounter"
--- OUTSIDE RECORDS SUMMARY | ~2019-10-17 | XMS | Encounter Summary ---
Demographics + + + | Address | [address] | | | [place] [address] | + + + | Home Phone [...] Providers + +------+ + | Care Manager Bridge Name | Role | Phone | + [...] + | 02/10/ | Refill | [facility] | Alanis, | Medication Refill | | 2018 | | MEDICINE [address] [place] [address] | MD Petrona | | | | | [facility] | [address] [place] [address] | | | | | [place] [address] | [place] [address] | | | | | [phone] | [phone] | | | | | | | [...] | | | | | [place] [address] | | | | | | [phone] | | | | | | | | +--------+---------+ + + + | 12/20/ | Office | Audiology | Elisabet Munson MS | | | 2019 | Visit | | [facility] [address] | | | | | | [place] [address] [place] | | | | | | [place] [address] | | | | | | [phone] | | | | | | | | +--------+---------+ + + + | 12/20/ | Office | Otolaryngology | Ulysses Genao MD | | | 2019 | Visit | | [address] [facility] | | | | | | [address] [place], | | | | | | [place] [address] | | | | | | [phone] | | | | | | | | +--------+---------+ + + + documented as of this encounter Visit Diagnoses + + | Diagnosis | + + | Nausea Nausea alone | + + documented in this encounter"
--- OUTSIDE RECORDS SUMMARY | ~2019-10-17 | XMS | Encounter Summary ---
Demographics + + + | Address | [address] | | | [place] [address] | + + + | Home Phone [...] Providers + +------+ + | Care Commercial Singer Name | Role | Phone | [...] | 03/12/ | Refill | [facility] | Alanis, | Medication Refill | | 2018 | | MEDICINE [address] [place] [address] | MD Petrona | | | | | [facility] | [address] [place] [address] | | | | | [place] [address] | [place] [address] | | | | | [phone] | [phone] | | | | | | | [...] | | | | | [place] [address] | | | | | | [phone] | | | | | | | | +--------+---------+ + + + | 12/20/ | Office | Audiology | Elisabet Munson MS | | | 2019 | Visit | | [facility] [address] | | | | | | [place] [address] [place] | | | | | | [place] [address] | | | | | | [phone] | | | | | | | | +--------+---------+ + + + | 12/20/ | Office | Otolaryngology | Ulysses Genao MD | | | 2020 | Visit | | [address] [facility] | | | | | | [address] [place], | | | | | | [place] [address] | | | | | | [phone] | | | | | | | | +--------+---------+ + + + documented as of this encounter Visit Diagnoses Not on filedocumented in this encounter"
--- OUTSIDE RECORDS SUMMARY | ~2019-10-17 | XMS | Encounter Summary ---
Demographics + + + | Address | [address] | | | [place] [address] | + + + | Home Phone [...] Providers + +------+ + | Care Tile Classifier Name | Role | Phone | + +------+ + | Sulaiman Carrera MD | PCP | | + +------+ + Encounter Details +--------+ + + + + | Date | Type | Department | Care Team | Description | +--------+ + + + + | 07/24/ | Ancillary | Registration 3181 | [place], | | | 2006 | Registratio | [facility] | MD Lukasz [address] | | | [address] | [address] Mailcode: RPB07 | [place], | | | | | [place], [place] | [place] [address] | | | | | [address] | [phone] | | | | | [phone] | | | +--------+ + + + [...] | | | | | performed at [facility] | | | | | | [facility] | | | | | | Laboratory | | | | + + + + + + + + | Specimen | + + | | + + + + + + + | Performing | Address | City/State/Zipcode | Phone Number | | Organization | | | | + + + + + | [facility] | [address] | [place] [address] | | | LABORATORY | | | [...] [facility] DEPART[facility] | [address] | [place] [address] | | | PATHOLOGY | [address] | | | + + + + + | [facility] DEPARTMENT OF | [address] | [place] [address] | | | PATHOLOGY | [address] [...] DEPARTMENT OF | [address] | [place] [address] | | | PATHOLOGY | [address] | | | + + + + + | [facility] DEPARTMENT OF | [address] [facility] | [place] [address] | | | PATHOLOGY | [address] [...] | [address] | [place] [address] | | | PATHOLOGY | [address] | | | + + + + + | [facility] DEPARTMENT OF | [address] | [place] [address] | | | PATHOLOGY | [address] | | | + + + + + PROTHROMBIN TIME (07/24/2005 5:03 PM PST) + + + + + + | Component | Value | Ref Range | Performed | Pathologist | | | | | At | Signature | + + + + + + | INR | 0.97Comment: | 0.90 - 1.20 INR | [facility] | | | | PT INR Therapeutic [...] + + | [facility] | [address] | [place] [address] | | | PATHOLOGY | [address] | | | + + + + + | [facility] DEPARTMENT OF | [address] | [place] [address] | | | PATHOLOGY | [address] [...] + + | [facility] | [address] | [place] [address] | | | PATHOLOGY | [address] | | | + + + + + | [facility] | [address] | [place] [address] | | | PATHOLOGY | [address] | | | + + + + + documented in this encounter Visit Diagnoses Not on filedocumented in this encounter"
--- OUTSIDE RECORDS SUMMARY | ~2019-10-17 | XMS | Encounter Summary ---
Demographics + + + | Address | [address] | | | [place] [address] | + + + | Home Phone [...] Team Providers + +------+ + | Care Bridges Supervisor Name | Role | Phone | [...] | | sciatica | [address] | [address] Phone: | | | | | | [place], | [phone] | | | | | | [place] | Fax: | | | | | | [address] | [phone] | | | | | | Phone: | | | | | | | [phone] | | | | | | | Fax: | | | | | | | [phone] | | +--------+ + + + + + Reason for Visit + + + | Reason | Comments | + + + | Medication Orders | | + + + Encounter Details +--------+ + + + + | Date | Type | Department | Care Team | Description | +--------+ + + + + | 07/15/ | Telephone | [facility] INTER[facility] | Alanis, | Medication Orders | | 2018 | | MEDICINE [address] [place] [address] | MD Petrona | | | | | [facility] | [address] [place] [address] | | | | | [place] [address] | [place] [address] | | | | | [phone] | [phone] | | | | | | | [...] | | | [address] [facility] | | | | | | [place] [address] | | | | | | [phone] | | | | | | | | +--------+---------+ + + + | 12/20/ | Office | Audiology | Elisabet Munson MS | | | 2019 | Visit | | [facility] [address] | | | | | | [address] | | | | | | [place] [address] | | | | | | [phone] | | | | | | | | +--------+---------+ + + + | 12/20/ | Office | Otolaryngology | Ulysses Genao MD | | | 2019 | Visit | | [address] | | | | | | [address] [place], | | | | | | [place] [address] | | | | | | [phone] | | | | | | | [...]
--- OUTSIDE RECORDS SUMMARY | ~2019-10-17 | XMS | Encounter Summary ---
Demographics + + + | Address | [address] | | | [place] [address] | + + + | Home Phone [...] Providers + +------+ + | Care Underground Supervisor Name | Role | Phone | [...] + + | 07/28/ | Telephone | [facility] | Alanis, | Appointment | | 2018 | | MEDICINE [address] [place] [address] | MD Petrona | | | | | [facility] | [address] [place] [address] | | | | | [place] [address] | [place] [address] | | | | | [phone] | [phone] | | | | | | | [...] | | | | | [place] [address] | | | | | | [phone] | | | | | | | | +--------+---------+ + + + | 12/20/ | Office | Audiology | Elisabet Munson MS | | | 2020 | Visit | | [facility] [address] | | | | | | [address] [place] [address] [place] | | | | | | [place] [address] | | | | | | [phone] | | | | | | | | +--------+---------+ + + + | 12/20/ | Office | Otolaryngology | Ulysses Genao MD | | | 2020 | Visit | | [address] | | | | | | [address] [place], | | | | | | [place] [address] | | | | | | [phone] | | | | | | | | +--------+---------+ + + + documented as of this encounter Visit Diagnoses Not on filedocumented in this encounter"
--- OUTSIDE RECORDS SUMMARY | ~2019-10-17 | XMS | Encounter Summary ---
Demographics + + + | Address | [address] | | | [place] [address] | + + + | Home Phone [...] Providers + +------+ + | Care Oil Well Service Unit Operator Name | Role | Phone | + +------+ + PCP | Unavailable | + +------+ + Encounter Details +--------+ + + + + | Date | Type | Department | Care Team | Description | +--------+ + + + + | 07/04/ | Office | Endocrinology, | Beto Meeks MD | | | 2005 | Visit-ECX | Diabetes and | [address] | | | | | Clinical Nutrition | [place], [place] | | | | | [address] | [address] | | | | | Loop Mailcode: OPC5 | [phone] | | | | | Outpatient Clinic | | | | | | [facility] | | | | | | [place] [address] | | | | | | [phone] | | | +--------+ + + + [...]
--- OUTSIDE RECORDS SUMMARY | ~2019-10-17 | XMS | Encounter Summary ---
Demographics + + + | Address | [address] | | | [place] [address] [...] Providers + +------+ + | Care Grain Oilseed Or Pasture Grower Name | Role | Phone | [...] | | | [facility] | [place], [place] | | | | | [address] | [address] | | | | | [address] | [phone] | | | | | [facility] | | | | | | Physician's | | | | | | Pavilion [place], | | | | | | [place] [address] | | | | | | [phone] | | | +--------+ + + + [...]
--- OUTSIDE RECORDS SUMMARY | ~2019-10-17 | XMS | Encounter Summary ---
Demographics + + + | Address | [address] | | | [place] [address] | + + + | Home Phone [...] Team Providers + +------+ + | Care Ncqa Specialist Name | Role | Phone | + +------+ + PCP | Unavailable | + +------+ + Encounter Details +--------+ + + + + | Date | Type | Department | Care Team | Description | +--------+ + + + + | 07/31/ | Hospital | [facility] | Ruben Tobias | | | 2005 | Encounter | MED CTR SLEEP | MD Raji [address] | | | | | [place] [address] | [facility] | | | | | [place], [place] | [place] [address] | | | | | [address] | [phone] | | | | | [phone] | | | +--------+ + + + [...] | | | | | [place] [address] | | | | | | [phone] | | | | | | | | +--------+---------+ + + + | 12/20/ | Office | Audiology | Elisabet Munson MS | | | 2019 | Visit | | [facility] [address] | | | | | [address] [place] | | | | | | [place] [address] | | | | | | [phone] | | | | | | | | +--------+---------+ + + + | 12/20/ | Office | Otolaryngology | Ulysses Genao MD | | | 2019 | Visit | | [address] | | | | | | [address] [place], | | | | | | [place] [address] | | | | | | [phone] | | | | | | | | +--------+---------+ + + + documented as of this encounter Visit Diagnoses Not on filedocumented in this encounter"
--- OUTSIDE RECORDS SUMMARY | ~2019-10-17 | XMS | Encounter Summary ---
Demographics + + + | Address | [address] | | | [place] [address] | + + + | Home Phone [...] Providers + +------+ + | Care Foil Stamp Operator Name | Role | Phone | [...] + + | 09/14/ | Telephone | [facility] | Alanis, | Chest Pain | | 2019 | | MEDICINE [address] [place] [address] | MD Petrona | | | | | [facility] | [address] [facility] | | | | | [place] [address] | [place] [address] | | | | | [phone] | [phone] | | | | | | | [...] | | | | | [place] [address] | | | | | | [phone] | | | | | | | | +--------+---------+ + + + | 12/20/ | Office | Audiology | Elisabet Munson MS | | | 2020 | Visit | | [facility] [address] | | | | | | [address] [place] [address] [place] | | | | | | [place] [address] | | | | | | [phone] | | | | | | | | +--------+---------+ + + + | 12/20/ | Office | Otolaryngology | Ulysses Genao MD | | | 2020 | Visit | | [address] | | | | | | [address] [place], | | | | | | [place] [address] | | | | | | [phone] | | | | | | | | +--------+---------+ + + + documented as of this encounter Visit Diagnoses Not on filedocumented in this encounter"
--- OUTSIDE RECORDS SUMMARY | ~2019-10-17 | XMS | Encounter Summary ---
Demographics + + + | Address | [address] | | | [place] [address] | + + + | Home Phone [...] Providers + +------+ + | Care Internal Audit Manager Name | Role | Phone [...] + | 05/06/ | Telephone | [facility] | Alanis, | Other | | 2017 | | MEDICINE [address] [place] [address] | MD Petrona | | | | | [facility] | [address] [place] [address] | | | | | [place] [address] | [place] [address] | | | | | [phone] | [phone] | | | | | | | [...] | | [facility] [address] [place] | | | | | | [place] [address] | | | | | | [phone] | | | | | | | | +--------+---------+ + + + | 12/20/ | Office | Audiology | Elisabet Munson MS | | | 2019 | Visit | | [facility] [address] | | | | | | [place] [address] [address] | | | | | | [place] [address] | | | | | | [phone] | | | | | | | | +--------+---------+ + + + | 12/20/ | Office | Otolaryngology | Ulysses Genao MD | | | 2019 | Visit | | [address] [facility] | | | | | | [address] [place], | | | | | | [place] [address] | | | | | | [phone] | | | | | | | | +--------+---------+ + + + documented as of this encounter Visit Diagnoses Not on filedocumented in this encounter"
--- OUTSIDE RECORDS SUMMARY | ~2019-10-17 | XMS | Encounter Summary ---
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 Overall she has made some good changes. [...] natalie ing an effort to improve. Diagnosis: Finley I: 1. (296.32) Major depressive disorder, recurrent, moderate. 2. (309.24) Adjustment disorder with anxiety. 3. 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 Finley II: Deferred Finley III: abdominal pain, migraine headache, low back pain. Finley IV: low finances Finley V: GAF 50 Plan: Return in 2 weeks. Check pacing, relaxation, activity, distraction. Check managing Pain.. . book. Continue cognitive/behavioral therapy. Total time spent with patient was approximately 45 minutes. LUKASZ CHARLES PHD [facility] [address] [place] [address] And [facility] [address] [place] [address] documented in this encount er Plan of [...] | | | | | | ([facility]) Spondylosis | | | | | | [...] | Major depressive disorder, recurrent episode, moderate ([facility]) Major depressive | | disorder, recurrent episode, [...]
--- OUTSIDE RECORDS SUMMARY | ~2019-10-17 | XMS | Encounter Summary ---
Demographics + + + | Address | [address] | | | [place] [address] | + + + | Home Phone [...] Team Providers + +------+ + | Care Lpn Home Health Name | Role | Phone [...] | | | [facility] | [place], [place] | | | | | [address] | [address] | | | | | [address] | [phone] | | | | | [facility]ician[facility] Pavilion | | | | | | Physician's | | | | | | Pavilion [place], | | | | | | [place] [address] | | | | | | [phone] | | | +--------+ + + + [...]
--- OUTSIDE RECORDS SUMMARY | ~2019-10-17 | XMS | Encounter Summary ---
Demographics + + + | Address | [address] | | | [place] [address] | + + + | Home Phone [...] Providers + +------+ + | Care Property Valuer Name | Role | Phone | + +------+ + | Pedrito Gutierrez MD | PCP | | + +------+ + Encounter Details +--------+ + + + + | Date | Type | Department | Care Team | Description | +--------+ + + + + | 05/20/ | Telephone | Digestive Health | Rohan Foley MD | | | 2005 | | [place] [facility] [address] | | | | | | [address] | | | | | | Mailcode: Center | | | | | | for Health and | | | | | | [facility], [address] | | | | | | [place], [place] | | | | | | [address] | | | | | | [phone] | | | +--------+ + + + [...]
--- OUTSIDE RECORDS SUMMARY | ~2019-10-17 | XMS | Encounter Summary ---
Demographics + + + | Address | [address] | | | [place] [address] | + + + | Home Phone [...] Team Providers + +------+ + | Care Sociology Adjunct Instructor Name | Role | Phone | [...] [id number] | | | | | | [place], [place] | | | | | | [address] | | | | | | [phone] | | | +--------+--------+ + + + [...]
--- OUTSIDE RECORDS SUMMARY | ~2019-10-17 | XMS | Encounter Summary ---
Demographics + + + | Address | [address] | | | [place] [address] | + + + | Home Phone [...] Providers + +------+ + | Care Concrete Engineer Name | Role | Phone | [...] | | 2006 | Visit | [facility] | [address] | Pain; Cervical Pain; | | | | [place] [address] [place], | Pain in Joint, Site | | | | [address] Mailcode: | [place] [address] | Unspecified; | | | | [facility] for | | Depression | | | | Health and Healing, | | | | | | Building | | | | | | Floor [place], [place] | | | | | | [address] | | | | | | [phone] | | | +--------+---------+ + + + [...] EVALUATION NOTE Date: 06/23/2006 Name: Belinda Meehan [id number] y.o. female Start of Care: 06/23/2005 [...] the last few gregory hs. Handedness: right [place]: [place], [place] Chief Complaint: Headaches and cervical pain, bilateral [...] HX SALPINGO-OOPHORECTOMY COLONOSCOPY Comment: 03/2006 HX TONSILLECTOMY TX D&C AFTER DELIVERY TX INJECT TRIGGER POINT, 1 OR 2 Medications: [...] + + +--------+ + + | [place] PHYS THERAPY | Procedures | Routin | [...]
--- OUTSIDE RECORDS SUMMARY | ~2019-10-17 | XMS | Encounter Summary ---
Demographics + + + | Address | [address] | | | [place] [address] | + + + | Home Phone [...] Team Providers + +------+ + | Care Opal Miner Name | Role | Phone | [...] 2016 | | NEUROLOGY [place] | [address] | | | | | [address] [facility], | [address] | | | | | [address] [place] | [place] | | | | | [place] [address] | [address] | | | | | [phone] | | | +--------+ + + + [...] | | | | | | [place] [address] | | | | | | [phone] | | | | | | | | +--------+---------+ + + + | 12/20/ | Office | Audiology | Elisabet Munson MS | | | 2019 | Visit | | [facility] [address] | | | | [address] [place] | | | | | | [place] [address] | | | | | | [phone] | | | | | | | | +--------+---------+ + + + | 12/20/ | Office | Otolaryngology | Ulysses Genao MD | | | 2019 | Visit | | [address] | | | | | | [address] [place], | | | | | | [place] [address] | | | | | | [phone] | | | | | | | | +--------+---------+ + + + documented as of this encounter Visit Diagnoses Not on filedocumented in this encounter"
--- OUTSIDE RECORDS SUMMARY | ~2019-10-17 | XMS | Encounter Summary ---
Demographics + + + | Address | [address] | | | [place] [address] | + + + | Home Phone [...] Providers + +------+ + | Care Electrical Installation Inspector Name | Role | Phone | [...] | Management | Chronic | [employer] [place], PLASTER HELPER | Rosi Armijo, ANP | | | | | neck pain | [address] | [address] | | | | | Low back | [address] | [place] | | | | | pain | [place] | [place], [place] | | | | | | [address] | [address] | | | | | | Phone: | | | | | | | [phone] | | | | | | | Fax: | | | | | | | [phone] | | +--------+--------+ + + + + Encounter Details +--------+---------+ + + + | Date | Type | Department | Care Team | Description | +--------+---------+ + + + | 08/09/ | Office | [facility] Comprehensive | Rosi Antonio, | Fibromyalgia | | 2013 | Visit | Pain Center at | ANP | syndrome 729.1 | | | | [facility] | | (Primary Dx); Major | | | | [address] | | depressive disorder, | | | | Mailcode: CH15P | | recurrent episode, | | | | [facility] | | moderate ([facility]); | | | | and Healing, | | Adjustment disorder | | | | Building | | with anxiety; LBP | | | | Floor [place], [place] | | (low back pain); | | | | [address] | | Osteopenia; Chronic | | | | [phone] | | Bilateral Shoulder | | | [...] al. Diabetes Care. 28(1):89-94, 2004; Anca M, HOME HEALTH OCCUPATIONAL THERAPIST Drugs. [address] 1:25-30; discussion 45-6, [...] might be different fro m the original. [facility] Comprehensive Pain [...] never going to her local hospital in [place] for any medical evaluations. Belinda is very [...] and a pain drawing which I reviewed. [facility] Brief Pain Inventory: (ten= worst possible [...] regions, she notes pain in her right jew, bilateral shoul crista muscles, left elbow, entire [...] right knee Lumbar fusion 05/2008, ' & L5-H6qorcts with bone spur removals Appendectomy Cholecystectomy section [...] Hives Mainly in the legs Clindamycin Codeine Hxwsuni-Ponliiqjnl-Kcb-Caff Balance problems Fioricet W/Codeine (Bpbqeubysn-Kljcjswqcr-Cjk-Cod) Keflex (Cephalexin) Morphine IM ( only in [facility]) made gut pain worse 08/27/06: Trial of oral MSIR caused leg swelling Penicillins Sulfa (Sulfonamide Antibiotics) Tramadol Ms. Meehan reports no side effects. The Review of Systems provided by Ms. Meehan and documented by the [facility] was reviewed. This data was entered [...] al. Diabetes Care. 28(1):89-94, 2004; Anca M, HOME HEALTH OCCUPATIONAL THERAPIST Drugs. [address] 1:25-30; discussion 45-6, [...] of which more than 50% was spent gxwke-vz-amhb in r eviewing pain questionnaire, medical record, [...] | | + +---------+ + + | [facility] DEPARTMENT OF | | | [...]
--- OUTSIDE RECORDS SUMMARY | ~2019-10-17 | XMS | Encounter Summary ---
Demographics + + + | Address | [address] | | | [place] [address] | + + + | Home Phone [...] Status Post | | 2007 | | [facility] [address] | [address] [facility] | Bariatric Surgery | | | | Ave Mailcode: CH4S | [address] | (Primary Dx) | | | | [facility] | [place], [place] | | | | | and Healing, | [address] | | | | | Building 1, 6th | [phone] | | | | | Floor [place], [place] | | | | | | [address] | | | | | | [phone] | | | +--------+ + + + [...] | | | | | ng/mLPerformed by [facility] | | | | | | [facility],[address] | | | | | | Andrew, [facility] [place] [address] | | | | | | [phone] | | | | | | Sincere [...] [facility] | [address] | [place], [place] | | | UNIV [facility] | | [address] | | + + + + + [...] + + + + + | [facility] | [address] | [place] [address] | | | LABORATORY | | | [...] RLB ([address] [facility]) | | | [facility] [place] [address] | | | [place] [address] | | + + + + + + + + | Performing | Address | City/State/Zipcode | Phone Number | | Organization | | | | + + + + + | [facility] | [address] | [place] [address] | | | LABORATORY | | | [...] RL ([address] [facility]) | | | [facility] [place] [address] | | | [place] [address] | | + + + + + + + + | Performing | Address | City/State/Zipcode | Phone Number | | Organization | | | | + + + + + | [facility] | [address] | [place] [address] | | | LABORATORY | | | [...] Performed At | + + + | [address] Estimated GFR > 60 mL/min/1.73 sq m if non- | [facility] | | [address] Estimated GFR > 60 mL/min/1.73 sq m [...] DEPARTMENT OF | [address] | [place] [address] | | | PATHOLOGY | [address] | | | + + + + + | [place] DEPARTMENT | [address] | [place] [address] | | | PATHOLOGY | [address] [...] [facility] | [address] | [place] [address] | | | PATHOLOGY | [address] | | | + + + + + | [facility] | [address] | [place] [address] | | | PATHOLOGY | [address] | | | + + + + + documented in this encounter Visit Diagnoses + + | Diagnosis | + + | Status post bariatric surgery - Primary Bariatric surgery status | + + documented in this encounter"
--- OUTSIDE RECORDS SUMMARY | ~2019-10-17 | XMS | Encounter Summary ---
Demographics + + + | Address | [address] | | | [place] [address] | + + + | Home Phone [...] Team Providers + +------+ + | Care Teller Coordinator Name | Role | Phone | [...] | | | | [facility] | [place], [place] | | | | | [address] | [address] | | | | | [place], [place] | [phone] | | | | | [address] | | | | | | [phone] | | | +--------+ + + + [...] | + + + + + | [facility] DEPARTMENT OF | [address] | [place] [address] | | | PATHOLOGY | [address] | | | + + + + + | [facility] DEPARTMENT OF | [address] | [place] [address] | | | PATHOLOGY | [address] [...] | + + + + + | [facility] DEPARTMENT OF | [facility] | [place] [address] | | | PATHOLOGY | [address] | | | + + + + + | [facility] DEPARTMENT OF | [facility] | [place] [address] | | | PATHOLOGY | [address] [...] | + + + + + | [facility] DEPARTMENT OF | [address] | [place] [address] | | | PATHOLOGY | [address] | | | + + + + + | [facility] DEPARTMENT OF | [address] [facility] | [place] [address] | | | PATHOLOGY | [address] [...] | + + + + + | [facility] DEPARTMENT OF | [address] | [place], [place] [address] | | | PATHOLOGY | [address] | | | + + + + + | [facility] DEPARTMENT OF | [address] | [place] [address] | | | PATHOLOGY | [address] [...] + + | [facility] | [address] | [place] [address] | | | PATHOLOGY | [address] | | | + + + + + | [facility] | [address] | [place] [address] | | | PATHOLOGY | [address] | | | + + + + + documented in this encounter Visit Diagnoses Not on filedocumented in this encounter"
--- OUTSIDE RECORDS SUMMARY | ~2019-10-17 | XMS | Encounter Summary ---
Demographics + + + | Address | [address] | | | [place] [address] | + + + | Home Phone [...] + +------+ + | Care Sales And Leasing Agent Name | Role | Phone [...] | | sciatica | [address] | [place] [address] | | | | | Generalized | [place], | Phone: | | | | | osteoarthrit | [place] | [phone] | | | | | is | [address] | Fax: | | | | | | Phone: | [phone] | | | | | | [phone] | | | | | | | Fax: | | | | | | | [phone] | | +--------+ + + + + + Reason for Visit + + + | Reason | Comments | + + + | Medication Problem | | + + + Encounter Details +--------+--------+ + + + | Date | Type | Department | Care Team | Description | +--------+--------+ + + + | 06/05/ | Refill | [facility] | Alanis, | Medication Problem | | 2016 | | MEDICINE [address] [place] [address] | MD Petrona | | | | | [facility] | [address] [place] [address] | | | | | [place] [address] | [place] [address] | | | | | [phone] | [phone] | | | | | | | [...] | | | | | [address] [facility] | | | | | | [place] [address] | | | | | | [phone] | | | | | | | | +--------+---------+ + + + | 12/20/ | Office | Audiology | Elisabet Munson MS | | | 2019 | Visit | | [facility] [address] | | | | | | [address] | | | | | | [place] [address] | | | | | | [phone] | | | | | | | | +--------+---------+ + + + | 12/20/ | Office | Otolaryngology | Ulysses Genao MD | | | 2020 | Visit | | [address] | | | | | | [address] [place], | | | | | | [place] [address] | | | | | | [phone] | | | | | | | [...]
--- OUTSIDE RECORDS SUMMARY | ~2019-10-17 | XMS | Encounter Summary ---
Demographics + + + | Address | [address] | | | [place] [address] | + + + | Home Phone [...] Providers + +------+ + | Care Machine Erector Name | Role | Phone | [...] + | 10/05/ | Refill | [facility] | Alanis, | Medication Refill | | 2017 | | MEDICINE [address] [place] [address] | MD Petrona | | | | | [facility] | [address] [place] [address] | | | | | [place] [address] | [place] [address] | | | | | [phone] | [phone] | | | | | | | [...] | | | | | [place] [address] | | | | | | [phone] | | | | | | | | +--------+---------+ + + + | 12/20/ | Office | Audiology | Elisabet Munson MS | | | 2019 | Visit | | [facility] [address] | | | | | | [place] [address] [place] | | | | | | [place] [address] | | | | | | [phone] | | | | | | | | +--------+---------+ + + + | 12/20/ | Office | Otolaryngology | Ulysses Genao MD | | | 2020 | Visit | | [address] [facility] | | | | | | [address] [place], | | | | | | [place] [address] | | | | | | [phone] | | | | | | | | +--------+---------+ + + + documented as of this encounter Visit Diagnoses Not on filedocumented in this encounter"
--- OUTSIDE RECORDS SUMMARY | ~2019-10-17 | XMS | Encounter Summary ---
Demographics + + + | Address | [address] | | | [place] [address] | + + + | Home Phone [...] Providers + +------+ + | Care Numerical Analysis Group Manager Name | Role | Phone | [...] + + | 10/19/ | Telephone | [facility] | Alanis, | Lab Order | | 2017 | | MEDICINE [address] [place] [address] | MD Petrona | | | | | [facility] | [address] [place] [address] | | | | | [place] [address] | [place] [address] | | | | | [phone] | [phone] | | | | | | | [...] | | | | | [place] [address] | | | | | | [phone] | | | | | | | | +--------+---------+ + + + | 12/20/ | Office | Audiology | Elisabet Munson MS | | | 2019 | Visit | | [facility] [address] | | | | | | [place] [address] [place] | | | | | | [place] [address] | | | | | | [phone] | | | | | | | | +--------+---------+ + + + | 12/20/ | Office | Otolaryngology | Ulysses Genao MD | | | 2020 | Visit | | [address] [facility] | | | | | | [address] [place], | | | | | | [place] [address] | | | | | | [phone] | | | | | | | | +--------+---------+ + + + documented as of this encounter Visit Diagnoses Not on filedocumented in this encounter"
--- OUTSIDE RECORDS SUMMARY | ~2019-10-17 | XMS | Encounter Summary ---
Demographics + + + | Address | [address] | | | [place] [address] | + + + | Home Phone [...] Team Providers + +------+ + | Care Cistern Room Working Supervisor Name | Role | Phone | [...] | | | [facility] | [place], [place] | | | | | [address] | [address] | | | | | [address] | [phone] | | | | | Physician's | | | | | | Pavilion, 1st floor | | | | | | [place], [place] | | | | | | [address] | | | | | | [phone] | | | +--------+ + + + [...]
--- OUTSIDE RECORDS SUMMARY | ~2019-10-17 | XMS | Encounter Summary ---
Demographics + + + | Address | [address] | | | [place] [address] | + + + | Home Phone [...] Team Providers + +------+ + | Care Skimmer Reverberatory Name | Role | Phone | + [...] + | 06/16/ | Clinical | [facility] | Alanis, | B12 deficiency | | 2020 | Support | MEDICINE [address] [place] [address] | MD Petrona | (Primary Dx) | | | | [facility] | [address] [place] [address] | | | | | [place] [address] | [place] [address] | | | | | [phone] | [phone] | | | | | | | [...] as of this encounter Progress Notes Shanta Whaley, Basketball Coach - 06/16/2019 10:30 AM PSTFormatting of this note calderon ht be different from the original. Administrations This Visit cyanocobalamin (VITAMIN B-12) injection 1,000 mcg Admin Date 06/16/2019 Action Given Dose 1000 mcg Route Intramuscular Administered By Shanta Whaley Basketball Coach Patient tolerated injection well, advised to schedule [...] Petrona | | | | | | [facility] [address] | | | | | | [place] [address] | | | | | | [phone] | | | | | | | | +--------+---------+ + + + | 07/08/ | Office | Audiology | Elisabet Munson | | | 2019 | Visit | | [facility] [address] | | | | [address] [place] | | | | | | [place] [address] | | | | | | [phone] | | | | | | | | +--------+---------+ + + + | 12/20/ | Office | Otolaryngology | Ulysses Genao MD | | | 2019 | Visit | | [address] | | | | | | [address] [place], | | | | | | [place] [address] | | | | | | [phone] | | | | | | | [...] | | | First dose on [facility] 10/15/17 at 1215 | | | [...]
--- OUTSIDE RECORDS SUMMARY | ~2019-10-17 | XMS | Encounter Summary ---
Demographics + + + | Address | [address] | | | [place] [address] | + + + | Home Phone [...] Team Providers + +------+ + | Care Mink Rancher Name | Role | Phone | [...] as of this encounter Discharge Summaries Interface, Mortgage Collector In - 01/12/2005 6:32 AM PDTAdmission Date: [...] M.D., D.M.D. Chris Padgett M.D. CLAIRE/carolynn A [id number] cc: documente d in this encounter Plan of Treatment Not on filedocumented as of this encounter Visit Diagnoses Not on filedocumented in this encounter"
--- OUTSIDE RECORDS SUMMARY | ~2019-10-17 | XMS | Encounter Summary ---
Demographics + + + | Address | [address] | | | [place] [address] | + + + | Home Phone [...] Providers + +------+ + | Care Division Chair Name | Role | Phone [...] Rom results of | | | | [facility] | | several radiology | | | | [address] | | studies) | | | | Mailcode: CH15P | | | | | | [facility] | | | | | | and Healing, | | | | | | Building | | | | | | Floor [place], [place] | | | | | | [address] | | | | | | [phone] | | | +--------+ + + + [...] | + +--------+ + + + | GA MRI LOWER EXTREM | Routin | 08/22/2005 [...] | + +--------+ + + + | [place] MRI LOWER EXTREM | Routin | 03/05/2005 [...] + | NAME: BELINDA MEEHAN MR #: [id number] | [facility] | | DATE OF EXAM: [id number] [...] Armaan Rivera | | | H : [id number] : 1442 Approved By: Radiologist: | | + + + + + + + + | Performing | Address | City/State/Zipcode | Phone Number | | Organization | | | | + + + + + | [facility] | [address] | [place], [place] | | | [facility] | [address] | [address] | | | TESTS | | | | + + + + + | [facility] | [address] | [place], [place] | | | TESTS | [address] | [address] | | + + + + + [...] [facility] | [address] | [place], [place] | | | [facility] | [facility] | [address] | | | TESTS | | | | + + + + + | [facility] | [address] | [place], [place] | | | TESTS | [facility] | [address] | | + + + + + [...] By: Armaan Mata : | | | [id number] : 1137 Approved By: | | + + + + + + + + | Performing | Address | City/State/Zipcode | Phone Number | | Organization | | | | + + + + + | [facility] | [address] | [place], [place] | | | [facility] | [address] | [address] | | | TESTS | | | | + + + + + | [facility] | [address] [facility] [address] | [place], [place] | | | TESTS | [address] | [address] | | + + + + + MRI SPINE CERVICAL WO CONTRAST (10/01/2005) + + + | Impressions | Performed At | + + + | SPINE LUMBAR 2 VIEWS AT 1421 HOURS LUMBAR SPINE, 10/01/05 | [facility] | | HISTORY: Back pain. FINDINGS: AP and lateral views of the lumbar | CARE TESTS | | spine show five xgc-cet-bavsqua lumbar vertebrae in normal alignment | | [...] | SPONDYLOSIS. Transcribed By: Armaan Mata : [id number] : | | | 1402 Approved By: | | + + + + + + + + | Performing | Address | City/[facility] | Phone Number | | Organization | | | | + + + + + | [facility] | [address] | [place], [place] | | | [facility] | [address] | [address] | | | TESTS | | | | + + + + + | [facility] | [address] | [place], [place] | | | TESTS | [address] | [address] | | + + + + + [...] NORMAL EXAMINATION. | | | Transcribed By: Adriaan Pacheco : [id number] : 1215 Approved By: | | | | | + + + + + + + + | Performing | Address | City/State/Zipcode | Phone Number | | Organization | | | | + + + + + | [facility] | [address] | [place], [place] | | | [facility] | [address] | [address] | | | TESTS | | | | + + + + + | [facility] | [address] | [place], [place] | | | TESTS | [address] | [address] | | + + + + + [place] MRI LOWER EXTREM JT, W/O CONTRAST (08/22/2005) + + + | Impressions | Performed At | + + + | LOWER EXTREMITY JOINT RT W/O AT 1619 HOURS RIGHT KNEE MRI, | [facility] | | 08/22/05 HISTORY: Chronic posterior [...] + + | Performing | Address | City/[facility] | Phone Number | | Organization | | | | + + + + + | [facility] | [address] | [place], [place] | | | [facility] | [address] | [address] | | | TESTS | | | | + + + + + | [facility] | [address] | [place], [place] | | | TESTS | [address] | [address] | | + + + + + [...] [facility] | [address] | [place], [place] | | | [facility] | [address] | [address] | | | TESTS | | | | + + + + + | [facility] | [address] | [place], [place] | | | TESTS | [address] | [address] | | + + + + + [place] MRI LOWER EXTREM JT, W/O CONTRAST (03/05/2005) [...] | | | By: Armaan Mata : [id number] : 1416 Approved By: | | + + + + + + + + | Performing | Address | City/State/Zipcode | Phone Number | | Organization | | | | + + + + + | [facility] | [address] | [place], [place] | | | [facility] | [address] | [address] | | | TESTS | | | [...] Armaan | | | Nicole Saenz : [id number] : 1555 Approved By: | | + + + + + + + + | Performing | Address | City/State/Zipcode | Phone Number | | Organization | | | | + + + + + | [facility] | [address] | [place], [place] | | | [facility] | [address] | [address] | | | TESTS | | | [...] Adriana | | | Aminata Pacheco : [id number] : 1505 Approved By: | | + + + + + + + + | Performing | Address | City/State/Zipcode | Phone Number | | Organization | | | | + + + + + | [facility] | [address] [facility] [address] | [place], [place] | | | [facility] | [address] | [address] | | | TESTS | | | | + + + + + documented in this encounter Visit Diagnoses Not on filedocumented in this encounter"
--- OUTSIDE RECORDS SUMMARY | ~2019-10-17 | XMS | Encounter Summary ---
Demographics + + + | Address | [address] | | | [place] [address] | + + + | Home Phone [...] Providers + +------+ + | Care Gun Stocker Name | Role | Phone | + +------+ + PCP | Unavailable | + +------+ + Encounter Details +--------+ + + + + | Date | Type | Department | Care Team | Description | +--------+ + + + + | 08/11/ | Hospital | [facility] | Ruben Tboias | | | 2001 | Encounter | MED CTR SLEEP | MD Raji [address] | | | | | [facility] [address] | [facility] | | | | | [place], [place] | [place] [address] | | | | | [address] | [phone] | | | | | [phone] | | | +--------+ + + + [...] | | | | | [place] [address] | | | | | | [phone] | | | | | | | | +--------+---------+ + + + | 12/20/ | Office | Audiology | Elisabet Munson MS | | | 2019 | Visit | | [facility] [address] | | | | [address] [place] | | | | | | [place] [address] | | | | | | [phone] | | | | | | | | +--------+---------+ + + + | 12/20/ | Office | Otolaryngology | Ulysses Genao MD | | | 2019 | Visit | | [address] | | | | | | [address] [place], | | | | | | [place] [address] | | | | | | [phone] | | | | | | | | +--------+---------+ + + + documented as of this encounter Visit Diagnoses Not on filedocumented in this encounter"
--- OUTSIDE RECORDS SUMMARY | ~2019-10-17 | XMS | Encounter Summary ---
Demographics + + + | Address | [address] | | | [place] [address] | + + + | Home Phone [...] Providers + +------+ + | Care Nursing Director Name | Role | Phone | [...] | | | | [place], | [address] | | | | | | [place] | Phone: | | | | | | [address] | [phone] | | | | | | Phone: | Fax: | | | | | | [phone] | [phone] | | | | | | Fax: | | | | | | | [phone] | | +--------+ + + + + + Encounter Details +--------+---------+ + + + | Date | Type | Department | Care Team | Description | +--------+---------+ + + + | 11/16/ | Office | [facility] | [place], | Diarrhea, | | 2017 | Visit | GASTROENTEROLOGY | MD Petrona | unspecified type | | | | [address] | [address] [facility] | (Primary Dx); | | | | [address] [place], [place] | [place] [address] | Chronic diarrhea; | | | | [address] | [phone] | S/P gastric bypass; | | | | [phone] | | Gastroesophageal | | | | | Luther Brito MD | reflux disease, | | | | | [address] | esophagitis presence | | | | | [place], [place] | not specified; | | | | | [address] | History of gastric | | | | | [phone] | ulcer; Abdominal | | | | | | pain, unspecified | | | | | | abdominal location; | | | | | | Narcotic dependence | | | | | | ([facility]); Obesity (BMI | | | | | [...] ordered and patient will complet e at [facility] in [place], orders were faxed; scheduled for egd/colon prop on 12/[address] Brito; advised to hold PPI day of procedure, she agreed. 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 documented in this encounter Plan of Treatment +--------+---------+ + + + | Date | Type | Specialty | Care Team | Description | +--------+---------+ + + + | 11/14/ | Office | Internal Medicine | Emmy-Kamlesh, | | | 2019 | Visit | | MD Petrona | | | | | | [address] [place] | | | | | | [place] [address] | | | | | | [phone] | | | | | | | | +--------+---------+ + + + | 12/20/ | Office | Audiology | Elisabet Munson MS | | | 2019 | Visit | | [facility] [address] | | | | [address] [place] | | | | | | [place] [address] | | | | | | [phone] | | | | | | | | +--------+---------+ + + + | 12/20/ | Office | Otolaryngology | Ulysses Genao MD | | | 2019 | Visit | | [address] | | | | | | [address] [place], | | | | | | [place] [address] | | | | | | [phone] | | | | | | | [...]
--- OUTSIDE RECORDS SUMMARY | ~2019-10-17 | XMS | Encounter Summary ---
Demographics + + + | Address | [address] | | | [place] [address] | + + + | Home Phone [...] Providers + +------+ + | Care Block Sawyer Name | Role | Phone | [...] | | | | Clinical Nutrition | [place], [place] | | | | | [address] | [address] | | | | | Loop Mailcode: OPC5 | [phone] | | | | | Outpatient Clinic | | | | | | [facility] | | | | | | [place] [address] | | | | | | [phone] | | | +--------+ + + + [...] + + + | [facility] | [address] | [place] [address] | | | PATHOLOGY | [address] | | | + + + + + | [facility] | [address] | [place] [address] | | | PATHOLOGY | [address] [...] [facility] | [address] | [place] [address] | | | PATHOLOGY | [address] | | | + + + + + | [facility] | [address] | [place] [address] | | | PATHOLOGY | [address] | | | + + + + + documented in this encounter Visit Diagnoses Not on filedocumented in this encounter"
--- OUTSIDE RECORDS SUMMARY | ~2019-10-17 | XMS | Encounter Summary ---
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 Continue with [place] 10/325 1 tablet three times per day [...] Belinda Meehan is a 46 y.o. female [facility] Return Visit Chief [...] 72 hours on schedule 2. Continue with [place] 10/325 1 tablet three times per day as needed for increased pain wit h activity. 3. Continue with Trileptal 150mg, 1 tablet twice a day 4. Continue with PT and psychology as scheduled 5. Follow up with Delfina Molina in 4 weeks or sooner if needed. 6. Continue with orthopedic and neurology evaluations as scheduled DELFINA [facility]OL[facility] Mail code CH 4P [place] [facility] and [address] [id number] Ty Omalley - 9:28 AM [...] Yes , Fentanyl [facility] Plan of Treatment Not on filedocumented as [...]
--- OUTSIDE RECORDS SUMMARY | ~2019-10-17 | XMS | Encounter Summary ---
Demographics + + + | Address | [address] | | | [place] [address] | + + + | Home Phone [...] Team Providers + +------+ + | Care Skull Chopper Name | Role | Phone | + [...] Office | [facility] | Lukasz Charles, | Major Depressive | | 2006 | Visit | [address] | PhD [address] | Disorder, Recurrent | | | | Mailcode: CH15 | [place], [place] | Episode, Moderate | | | | [facility] | [address] | (HCC); Chronic | | | | and Healing, | [phone] | Abdominal Pain; | | | | Building | | Herniated Lumbar | | | | Floor [place], [place] | | Intervertebral Disc | | | | [address] | | L4-5; DJD | | | | [phone] | | (Degenerative Joint | | | [...] progress but still neglects self-care occasionally. Diagnosis: Ophelia I: 1. (296.32) Major depressive disorder, recurrent, moderate. 2. (309.24) Adjustment disorder with anxiety. 3. 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 Ophelia II: Deferred Ophelia III: abdominal pain, migraine headache, low back pain. Ophelia IV: low finances Ophelia V: GAF 50 Plan: Return in 2 weeks. Check preparation for move and for niece's visit, Curves gym, pacing, r elaxation, activity, distraction. Check managing Pain... book. Discuss need for further vi sits. Total time spent with patient was approximately 45 minutes. LUKASZ CHARLES PHD [facility] [address] [facility], [address] [place] [phone] documented in this encount er Plan of [...]
--- OUTSIDE RECORDS SUMMARY | ~2019-10-17 | XMS | Encounter Summary ---
Demographics + + + | Address | [address] | | | [place] [address] | + + + | Home Phone [...] Team Providers + +------+ + | Care Transformer Builder Name | Role | Phone | [...] | | | | | | | [place], [place] | | | | | | | [address] | | | | | | | Phone: | | | | | | | [phone] | | | | | | | Fax: | | | | | | | [phone] | +--------+--------+ + + + + Encounter [...] | | | [facility] | [place], [place] | Metabolic syndrome | | | | [address] | [address] | X 250.80; Essential | | | | [address] | [phone] | hypertension 401.9; | | | | [facility] | | Fibromyalgia | | | | Physician's | | syndrome 729.1 | | | | Pavilion [place], | | | | | | [place] [address] | | | | | | [phone] | | | +--------+---------+ + + + [...]
--- OUTSIDE RECORDS SUMMARY | ~2019-10-17 | XMS | Encounter Summary ---
Demographics + + + | Address | [address] | | | [place] [address] | + + + | Home Phone [...] Team Providers + +------+ + | Care Nonfarm Animal Caretaker Name | Role | Phone | [...]
--- OUTSIDE RECORDS SUMMARY | ~2019-10-17 | XMS | Encounter Summary ---
Demographics + + + | Address | [address] | | | [place] [address] | + + + | Home Phone [...] Team Providers + +------+ + | Care Cardio Tech Name | Role | Phone | [...] + + | 10/11/ | Telephone | [facility] | Alanis, | LABS | | 2019 | | MEDICINE [address] [place] [address] | MD Petrona | | | | | [facility] | [address] [place] [address] | | | | | [place] [address] | [place] [address] | | | | | [phone] | [phone] | | | | | | | [...] [facility] [address] | | | | | | [place] [address] | | | | | | [phone] | | | | | | | | +--------+---------+ + + + | 12/20/ | Office | Audiology | Elisabet Munson MS | | | 2019 | Visit | | [facility] [address] | | | | | | [place] [address] [address] | | | | | | [place] [address] | | | | | | [phone] | | | | | | | | +--------+---------+ + + + | 12/20/ | Office | Otolaryngology | Ulysses Genao MD | | | 2019 | Visit | | [address] [facility] | | | | | | [address] [place], | | | | | | [place] [address] | | | | | | [phone] | | | | | | | | +--------+---------+ + + + documented as of this encounter Visit Diagnoses + + | Diagnosis | + + | Osteoporosis, unspecified osteoporosis type, unspecified pathological fracture | | presence - Primary | + + documented in this encounter"
--- OUTSIDE RECORDS SUMMARY | ~2019-10-17 | XMS | Encounter Summary ---
Demographics + + + | Address | [address] | | | [place] [address] | + + + | Home Phone [...] Team Providers + +------+ + | Care Trimming Department Blocker Name | Role | Phone | [...] + + | 01/01/ | Refill | [facility] | Alanis, | Medication Refill | | 2017 | | MEDICINE [address] [place] [address] | MD Petrona | | | | | [facility] | [address] [place] [address] | | | | | [place] [address] | [place] [address] | | | | | [phone] | [phone] | | | | | | | [...] | | | | | [place] [address] | | | | | | [phone] | | | | | | | | +--------+---------+ + + + | 12/20/ | Office | Audiology | Elisabet Munson MS | | | 2019 | Visit | | [facility] [address] | | | | | | [place] [address] [place] | | | | | | [place] [address] | | | | | | [phone] | | | | | | | | +--------+---------+ + + + | 12/20/ | Office | Otolaryngology | Ulysses Genao MD | | | 2020 | Visit | | [address] [facility] | | | | | | [address] [place], | | | | | | [place] [address] | | | | | | [phone] | | | | | | | | +--------+---------+ + + + documented as of this encounter Visit Diagnoses Not on filedocumented in this encounter"
--- OUTSIDE RECORDS SUMMARY | ~2019-10-17 | XMS | Encounter Summary ---
Demographics + + + | Address | [address] | | | [place] [address] | + + + | Home Phone [...] Providers + +------+ + | Care Associate [employer] Retail Name | Role | Phone | + +------+ + | Petrona Thapa | PCP | | | MD | | | + +------+ + Encounter Details +--------+ + + + + | Date | Type | Department | Care Team | Description | +--------+ + + + + | 09/01/ | Abstract | [facility] | Provider, | | | 2018 | | GASTROENTEROLOGY | MD Colin [address] | | | | | [address] [facility] | Sulma Kovacs. | | | | | [address] [place] | [place] [address] | | | | | [address] | | | | | | [phone] | | | +--------+ + + + [...] | | | | | [place] [address] | | | | | | [phone] | | | | | | | | +--------+---------+ + + + | 12/20/ | Office | Audiology | Elisabet Munson MS | | | 2019 | Visit | | [facility] [address] | | | | | | [address] [place] [address] [place] | | | | | | [place] [address] | | | | | | [phone] | | | | | | | | +--------+---------+ + + + | 12/20/ | Office | Otolaryngology | Ulysses Genao MD | | | 2019 | Visit | | [address] [place] | | | | | | [address] [place], | | | | | | [place] [address] | | | | | | [phone] | | | | | | | | +--------+---------+ + + + documented as of this encounter Visit Diagnoses Not on filedocumented in this encounter"
--- OUTSIDE RECORDS SUMMARY | ~2019-10-17 | XMS | Encounter Summary ---
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 2. May continue with [place] NTE 4 per day as prescribed 3. [...] Meehan is a 46 y.o. female [facility] Return Visit Chief Complaint: Chief Complaint Patient presents with Pain History of Present Illness: Belinda Meehan is a 46 y.o. year-old female with a history of chronic pain due to degenerative spine disease, abdominal pain, fibromyalgia and right rot ator cuff injury. Belinda reports pain in her left knee and having seen Dr. Morales in orth opedics at [facility], she reports that surgery is not an [...] swelling has resolved. Belinda has been using [place] 10/325 an average of 5 tablets per day. 1 tablet has an effecti ve duration of 5 hours "pain breaks through at about 4 hours", she reports taking a [place] ev eduardo 5 hours. She denies any [...] Collection Time Resulting Agency 07/30/2006 4:00 PM [facility] DEPARTMENT OF PATHOLOGY Component Results Component Value [...] previous 6 days. 2. May continue with [place] NTE 4 per day as prescribed 3. Continue with PT and Psychology as scheduled. 4. Continue with Trileptal 150mg 1 1/2 tablet twice a day 5. Follow up to review medications on 09/09/06 and call with any concerns or questions. DELFINA MOLINA [facility] Mail code CH 4P [facility] and [address] [address] Ailyn Foster - 08/27/19 9:09 [...] medication refills today? yes [facility] Plan of Treatment Not on [...]
--- OUTSIDE RECORDS SUMMARY | ~2019-10-17 | XMS | Encounter Summary ---
Demographics + + + | Address | [address] | | | [place] [address] | + + + | Home Phone [...] Team Providers + +------+ + | Care Religious Educator Name | Role | Phone | [...] | | | [place], | [address] | | | | | Sacroiliitis | Carlos Armijo MD | [place], | | | | | , not | [address] | [place] | | | | | elsewhere | [facility] | [address] | | | | | classified | [place] | Phone: | | | | | ([facility]LY [facility]) | [address] | [phone] | | | | | Procedures | Phone: | Fax: | | | | | MD INJECT SI | [phone] | [phone] | | | | | JOINT | Fax: | | | | | | ARTHRGRPHY&/ | [phone] | | | | | | ANES/STEROID | | | | | | | W/IMAGE MD | | | | | | | [...] | 02/27/ | Hospital | [facility] | Joe, | Bilateral | | 2015 | Encounter | MED CTR XRAY [address] | MARY Montero [address] | sacroiliitis (HCC) | | | | [address] [place] | [facility] [address] | (Primary Dx); | | | | [place] [address] | [place] [address] | Chronic low back | | | | [phone] | [phone] | pain; SCOLIOSIS , | | | | | | IDIOPATHIC; S/P | | | | | [facility] Paramedic [facility]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; | | | | [...] | | | | | [place] [address] | | | | | | [phone] | | | | | | | | +--------+---------+ + + + | 12/20/ | Office | Audiology | Elisabet Munson MS | | | 2019 | Visit | | [facility] [address] | | | | | | [address] [place] [address] [place] | | | | | | [place] [address] | | | | | | [phone] | | | | | | | | +--------+---------+ + + + | 12/20/ | Office | Otolaryngology | Ulysses Genao MD | | | 2019 | Visit | | [address] [facility] | | | | | | [address] [place], | | | | | | [place] [address] | | | | | | [phone] | | | | | | | [...] Meehan presents to the | [facility] | | fluoroscopy suite for fluoroscopically guided bilateral sacroiliac [facility] | | joint steroid injections as [...] + | [address] | [address] | [place] | [phone] | | [facility] | | [address] | | | - IMAGING | | [...] Meehan presents to the | [facility] | | fluoroscopy suite for fluoroscopically guided bilateral sacroiliac [facility] | | joint steroid injections as [...] | + + + + + | [address] | [address] | [place] | [phone] | | [facility] | | [address] | | | - IMAGING | | [...]
--- OUTSIDE RECORDS SUMMARY | ~2019-10-17 | XMS | Encounter Summary ---
Demographics + + + | Address | [address] | | | [place] [address] | + + + | Home Phone [...] Providers + +------+ + | Care Executive Sous Chef Name | Role | Phone | [...] + | 04/09/ | Telephone | [facility] Division of | Carlos Arreola, | Erroneous Encounter | | 2005 | | Gastroenterology/Hep | [address] | - Disregard | | | | atology [address] | [address] | (duplicate call; see | | | | [address] | [place] [address] | other encounter ) | | | | Mailcode: [id number] | [phone] | | | | | [facility] | | | | | | [address] | | | | | | [place], [place] | | | | | | [address] | | | | | | [phone] | | | +--------+ + + + [...]
--- OUTSIDE RECORDS SUMMARY | ~2019-10-17 | XMS | Encounter Summary ---
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 2. Continue with [place] 10/325 1 tablet as needed for activity [...] Belinda Meehan is a 46 y.o. female [facility] Pain Center Return [...] able to see Dr Gutierrez yet b md does have and appointment next week to [...] ev eduardo 72 hours. 2. Continue with [place] 10/325 1 tablet as needed for activity related pain NTE 3 per day. 3. Continue with pain psychology and physical therapy. 4. Follow up in two weeks to review medication management 5. Keep neurology evaluation as able with insurance aurthorization.- migraine headache eval uation 6. PCP to assess LE edema/swelling. DELFINA MOLINA [facility] Mail code CH 4P [facility] and [address] [address] Ailyn Foster 09/10/19 07 12:20 [...]
--- OUTSIDE RECORDS SUMMARY | ~2019-10-17 | XMS | Encounter Summary ---
Demographics + + + | Address | [address] | | | [place] [address] | + + + | Home Phone [...] Providers + +------+ + | Care Residential Door Unit Installer Name | Role | Phone [...] of this encounter Progress Notes Interface, Product Safety Tester In - 01/12/2005 10:09 AM PDT [id number] [facility] Date: 12/25/2004 Clinic: GENERAL [...] to [facility] at fax #[phone], first 30 pills, oxycodone 5 mg to [...] the current plan. Melisa Thorne / SHARIF [id number] / [id number] / [id number] / [id number] Electronically signed by Kenisha Melton 01-01-2005 04:41:20 PM documented i n this encounter Plan of Treatment Not on filedocumented as of this encounter Visit Diagnoses Not on filedocumented in this encounter"
--- OUTSIDE RECORDS SUMMARY | ~2019-10-17 | XMS | Encounter Summary ---
Demographics + + + | Address | [address] | | | [place] [address] | + + + | Home Phone [...] Providers + +------+ + | Care Phone Technician Name | Role | Phone | [...] | Transcriptions | + + | Interface, Adjunct Lecturer In - 06/05/2005 5:20 AM PST | | [id number] | | [id number] GEOVANNI Barnes | | | | Date: 12/06/2004 | | | | Attending Surgeon: Chris Padgett M.D. | | | | Business Solutions Architect(s): | | | | Preoperative Diagnosis(es): | [...] | | BW / HS | | [id number] / [id number] / [id number] / | | | | | | | | | | | | Electronically signed by Chris Padgett 12-31-2004 03:02:45 PM | + + documented in this encounter Visit Diagnoses Not on filedocumented in this encounter"
--- OUTSIDE RECORDS SUMMARY | ~2019-10-17 | XMS | Encounter Summary ---
Demographics + + + | Address | [address] | | | [place] [address] | + + + | Home Phone [...] Providers + +------+ + | Care Eligibility Counselor Name | Role | Phone | [...] + + | 02/11/ | Telephone | [facility] | Alanis, | Arm Pain (Right Arm) | | 2017 | | MEDICINE [address] [place] [address] | MD Petrona | | | | | [facility] | [address] [place] [address] | | | | | [place] [address] | [place] [address] | | | | | [phone] | [phone] | | | | | | | [...] | | | | | [place] [address] | | | | | | [phone] | | | | | | | | +--------+---------+ + + + | 12/20/ | Office | Audiology | Elisabet Munson MS | | | 2019 | Visit | | [facility] | | | | | | [address] [place] [address] [address] | | | | | | [place] [address] | | | | | | [phone] | | | | | | | | +--------+---------+ + + + | 12/20/ | Office | Otolaryngology | Ulysses Genao MD | | | 2020 | Visit | | [address] [place] | | | | | | [address] [place], | | | | | | [place] [address] | | | | | | [phone] | | | | | | | | +--------+---------+ + + + documented as of this encounter Visit Diagnoses Not on filedocumented in this encounter"
--- OUTSIDE RECORDS SUMMARY | ~2019-10-17 | XMS | Encounter Summary ---
Demographics + + + | Address | [address] | | | [place] [address] | + + + | Home Phone [...] Providers + +------+ + | Care Lab Technologist Name | Role | Phone [...] OP26 | | | | | | [place], [place] | | | | | | [address] | | | | | | [phone] | | | +--------+ + + + [...]
--- OUTSIDE RECORDS SUMMARY | ~2019-10-17 | XMS | Encounter Summary ---
Demographics + + + | Address | [address] | | | [place] [address] | + + + | Home Phone [...] Providers + +------+ + | Care Composite Mechanic Name | Role | Phone | [...] + + | 03/30/ | Telephone | [facility] | Alanis, | Appointment | | 2019 | | MEDICINE [address] [place] [address] | MD Petrona | | | | | [facility] | [address] [place] [address] | | | | | [place] [address] | [place] [address] | | | | | [phone] | [phone] | | | | | | | [...] | | | | | [place] [address] | | | | | | [phone] | | | | | | | | +--------+---------+ + + + | 12/20/ | Office | Audiology | Elisabet Munson MS | | | 2020 | Visit | | [facility] [address] | | | | | | [place] [address] [place] | | | | | | [place] [address] | | | | | | [phone] | | | | | | | | +--------+---------+ + + + | 12/20/ | Office | Otolaryngology | Ulysses Genao MD | | | 2020 | Visit | | [address] [place] | | | | | | [address] [place], | | | | | | [place] [address] | | | | | | [phone] | | | | | | | | +--------+---------+ + + + documented as of this encounter Visit Diagnoses Not on filedocumented in this encounter"
--- OUTSIDE RECORDS SUMMARY | ~2019-10-17 | XMS | Encounter Summary ---
Demographics + + + | Address | [address] | | | [place] [address] | + + + | Home Phone [...] Providers + +------+ + | Care Legal Billing Specialist Name | Role | Phone [...] + | 01/14/ | Refill | [facility] | Alanis, | Medication Refill | | 2017 | | MEDICINE [address] [place] [address] | MD Petrona | | | | | [facility] | [address] [place] [address] | | | | | [place] [address] | [place] [address] | | | | | [phone] | [phone] | | | | | | | [...] | | | | | [place] [address] | | | | | | [phone] | | | | | | | | +--------+---------+ + + + | 12/20/ | Office | Audiology | Elisabet Munson MS | | | 2019 | Visit | | [facility] [address] | | | | | | [place] [address] [place] | | | | | | [place] [address] | | | | | | [phone] | | | | | | | | +--------+---------+ + + + | 12/20/ | Office | Otolaryngology | Ulysses Genao MD | | | 2020 | Visit | | [address] [facility] | | | | | | [address] [place], | | | | | | [place] [address] | | | | | | [phone] | | | | | | | | +--------+---------+ + + + documented as of this encounter Visit Diagnoses Not on filedocumented in this encounter"
--- OUTSIDE RECORDS SUMMARY | ~2019-10-17 | XMS | Encounter Summary ---
Demographics + + + | Address | [address] | | | [place] [address] | + + + | Home Phone [...] Team Providers + +------+ + | Care Shearer Printed Circuit Boards Name | Role | Phone | + [...] + + | 12/10/ | Telephone | [facility] | Alanis, | Lab Results | | 2017 | | MEDICINE [address] [place] [address] | MD Petrona | | | | | [facility] | [address] [place] [address] | | | | | [place] [address] | [place] [address] | | | | | [phone] | [phone] | | | | | | | [...] | | | | [address] [place] | | | | | | [place] [address] | | | | | | [phone] | | | | | | | | +--------+---------+ + + + | 12/20/ | Office | Audiology | Elisabet Munson MS | | | 2020 | Visit | | [facility] [address] | | | | | | [place] [address] [place] | | | | | | [place] [address] | | | | | | [phone] | | | | | | | | +--------+---------+ + + + | 12/20/ | Office | Otolaryngology | Ulysses Genao MD | | | 2020 | Visit | | [address] [place] | | | | | | [address] [place], | | | | | | [place] [address] | | | | | | [phone] | | | | | | | | +--------+---------+ + + + documented as of this encounter Visit Diagnoses Not on filedocumented in this encounter"
--- OUTSIDE RECORDS SUMMARY | ~2019-10-17 | XMS | Encounter Summary ---
Demographics + + + | Address | [address] | | | [place] [address] | + + + | Home Phone [...] Providers + +------+ + | Care Compliance Engineer Products Name | Role | Phone | [...] order); | | | | Ave Mailcode: [facility] | [address] | Diarrhea | | | | [facility] | [place], [place] | | | | | and Healing, | [address] | | | | | [place] [address] [facility] | [phone] | | | | | [place], [place] | | | | | | [address] | | | | | | [phone] | | | +--------+ + + + [...]
--- OUTSIDE RECORDS SUMMARY | ~2019-10-17 | XMS | Encounter Summary ---
Demographics + + + | Address | [address] | | | [place] [address] | + + + | Home Phone [...] Providers + +------+ + | Care Teacher Early Childhood Development Name | Role | Phone | [...] + | 02/15/ | Office | [facility] | Alanis, | Antibiotic-associate | | 2019 | Visit | MEDICINE [address] | MD Petrona | d diarrhea (Primary | | | | [address] [place] | [address] [facility] | Dx); halfway | | | | [place] [address] | [place] [address] | prescription opiate | | | | [phone] | [phone] | use; Seasonal | | | | [...] | | | | | [place] [address] | | | | | | [phone] | | | | | | | | +--------+---------+ + + + | 12/20/ | Office | Audiology | Elisabet Munson MS | | | 2019 | Visit | | [facility] [address] | | | | | | [address] [place] | | | | | | [place] [address] | | | | | | [phone] | | | | | | | | +--------+---------+ + + + | 12/20/ | Office | Otolaryngology | Ulysses Genao MD | | | 2019 | Visit | | [address] [place] | | | | | | [address] [place], | | | | | | [place] [address] | | | | | | [phone] | | | | | | | [...] mL/min/1.73m2 | Yudy NATHAN | | | LATVIAN | RATE,ESTIMATED | | MEDICAL | | | | mL/min/1.78b8Fpfv than | | CENTER - | | [...] | [facility] | 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
--- OUTSIDE RECORDS SUMMARY | ~2019-10-17 | XMS | Encounter Summary ---
Demographics + + + | Address | [address] | | | [place] [address] | + + + | Home Phone [...] Team Providers + +------+ + | Care Finished Hardware Erector Name | Role | Phone | [...] | | | [facility] | [place], [place] | | | | | [address] | [address] | | | | | [address] | [phone] | | | | | [facility] | | | | | | Physician's | | | | | | Pavilion [place], | | | | | | [place] [address] | | | | | | [phone] | | | +--------+--------+ + + + [...]
--- OUTSIDE RECORDS SUMMARY | ~2019-10-17 | XMS | Encounter Summary ---
Demographics + + + | Address | [address] | | | [place] [address] | + + + | Home Phone [...] Providers + +------+ + | Care Legal Service Specialist Name | Role | Phone | + +------+ + PCP | Unavailable | + +------+ + Encounter Details +--------+ + + + + | Date | Type | Department | Care Team | Description | +--------+ + + + + | 07/30/ | Hospital | [facility] | Ulysses Genao MD | | | 2011 - | Encounter | MED CTR OP [facility] | [address] [place] | | | | | [address] [place] | [address] [place], | | | / | | [place] [address] | [place] [address] | | | 2011 | | [phone] | [phone] | | | | | | | [...] | | | | | [place] [address] | | | | | | [phone] | | | | | | | | +--------+---------+ + + + | 12/20/ | Office | Audiology | Elisabet Munson MS | | | 2019 | Visit | | [facility] [address] | | | | | [address] [place] | | | | | | [place] [address] | | | | | | [phone] | | | | | | | | +--------+---------+ + + + | 12/20/ | Office | Otolaryngology | Ulysses Genao MD | | | 2019 | Visit | | [address] [place] | | | | | | [address] [place], | | | | | | [place] [address] | | | | | | [phone] | | | | | | | | +--------+---------+ + + + documented as of this encounter Visit Diagnoses Not on filedocumented in this encounter"
--- OUTSIDE RECORDS SUMMARY | ~2019-10-17 | XMS | Encounter Summary ---
Demographics + + + | Address | [address] | | | [place] [address] | + + + | Home Phone [...] Providers + +------+ + | Care Power Checker Name | Role | Phone | [...] + + | 07/16/ | Telephone | [facility] | Alanis, | IV Medication | | 2017 | | MEDICINE [address] [place] [address] | MD Petrona | | | | | [facility] | [address] [place] [address] | | | | | [place] [address] | [place] [address] | | | | | [phone] | [phone] | | | | | | | [...] | | | | | [place] [address] | | | | | | [phone] | | | | | | | | +--------+---------+ + + + | 12/20/ | Office | Audiology | Elisabet Munson MS | | | 2019 | Visit | | [facility] [address] | | | | | | [address] [place] [place] | | | | | | [place] [address] | | | | | | [phone] | | | | | | | | +--------+---------+ + + + | 12/20/ | Office | Otolaryngology | Ulysses Genao MD | | | 2020 | Visit | | [address] | | | | | | [address] [place], | | | | | | [place] [address] | | | | | | [phone] | | | | | | | | +--------+---------+ + + + documented as of this encounter Visit Diagnoses Not on filedocumented in this encounter"
--- OUTSIDE RECORDS SUMMARY | ~2019-10-17 | XMS | Encounter Summary ---
Demographics + + + | Address | [address] | | | [place] [address] [...] Providers + +------+ + | Care Brick Veneer Maker Name | Role | Phone | [...] | | | | Clinical Nutrition | [place], [place] | | | | | [address] | [address] | | | | | Loop Mailcode: [id number] | [phone] | | | | | Outpatient Clinic | | | | | | [facility] | | | | | | [place] [address] | | | | | | [phone] | | | +--------+ + + + [...] + + | [facility] | [address] | [place] [address] | | | LABORATORY | | | [...] + + + | [facility] | [address] | [place] [address] | | | LABORATORY | | | [...] + + | [facility] | [address] | [place] [address] | | | LABORATORY | | | | + + + + + documented in this encounter Visit Diagnoses Not on filedocumented in this encounter"
--- OUTSIDE RECORDS SUMMARY | ~2019-10-17 | XMS | Encounter Summary ---
Demographics + + + | Address | [address] | | | [place] [address] | + + + | Home Phone [...] Providers + +------+ + | Care Pool Table Operator Name | Role | Phone [...] | Visit | [address] | HOSTAGE NEGOTIATOR | syndrome [address] | | | | [address] | | (Primary Dx); | | | | Physician's | | Fibromyalgia | | | | Pavilion, 4th Floor | | | | | | [place], [place] | | | | | | [address] | | | | | | [phone] | | | +--------+---------+ + + + [...] + + +--------+ + + | PA INJECT TRIGGER | Procedures | Routin | [...]
--- OUTSIDE RECORDS SUMMARY | ~2019-10-17 | XMS | Encounter Summary ---
Demographics + + + | Address | [address] | | | [place] [address] | + + + | Home Phone [...] Providers + +------+ + | Care Safety Investigator Name | Role | Phone | [...] Rd | | | | | | [place], [place] | | | | | | [address] | | | +--------+ + + + [...]
--- OUTSIDE RECORDS SUMMARY | ~2019-10-17 | XMS | Encounter Summary ---
Demographics + + + | Address | [address] | | | [place] [address] | + + + | Home Phone [...] Team Providers + +------+ + | Care Alum Mixer Name | Role | Phone | [...] Refill Request | | 2007 | | [place] [address] | [address] | (Sucralfate) | | | | [place] Mailcode: CH4S | [facility] | | | | | [facility] | [place], [place] | | | | | and Healing, | [address] | | | | | [facility] | [phone] | | | | | Floor [place], [place] | | | | | | [address] | | | | | | [phone] | | | +--------+--------+ + + + [...]
--- OUTSIDE RECORDS SUMMARY | ~2019-10-17 | XMS | Encounter Summary ---
Demographics + + + | Address | [address] | | | [place] [address] | + + + | Home Phone [...] Team Providers + +------+ + | Care Deicer Finisher Name | Role | Phone | [...] [id number] | | | | | | [place], [place] | | | | | | [address] | | | | | | [phone] | | | +--------+--------+ + + + [...]
--- OUTSIDE RECORDS SUMMARY | ~2019-10-17 | XMS | Encounter Summary ---
Demographics + + + | Address | [address] | | | [place] [address] | + + + | Home Phone [...] Team Providers + +------+ + | Care Mortgage Closer Name | Role | Phone | [...]
--- OUTSIDE RECORDS SUMMARY | ~2019-10-17 | XMS | Encounter Summary ---
Demographics + + + | Address | [address] | | | [place] [address] | + + + | Home Phone [...] Team Providers + +------+ + | Care Tip Stretcher Name | Role | Phone | + +------+ + PCP | Unavailable | + +------+ + Encounter Details +--------+ + + + + | Date | Type | Department | Care Team | Description | +--------+ + + + + | 07/31/ | Hospital | [facility] | Ruben Tobias | | | 2005 | Encounter | MED CTR SLEEP | MD Raji [address] | | | | | [place] [address] | [facility] | | | | | [place], [place] | [place] [address] | | | | | [address] | [phone] | | | | | [phone] | | | +--------+ + + + [...] | | | | | [place] [address] | | | | | | [phone] | | | | | | | | +--------+---------+ + + + | 12/20/ | Office | Audiology | Elisabet Munson MS | | | 2019 | Visit | | [facility] [address] | | | | | [address] [place] | | | | | | [place] [address] | | | | | | [phone] | | | | | | | | +--------+---------+ + + + | 12/20/ | Office | Otolaryngology | Ulysses Genao MD | | | 2019 | Visit | | [address] | | | | | | [address] [place], | | | | | | [place] [address] | | | | | | [phone] | | | | | | | | +--------+---------+ + + + documented as of this encounter Visit Diagnoses Not on filedocumented in this encounter"
--- OUTSIDE RECORDS SUMMARY | ~2019-10-17 | XMS | Encounter Summary ---
Demographics + + + | Address | [address] | | | [place] [address] | + + + | Home Phone [...] Team Providers + +------+ + | Care Unloader Operator Name | Role | Phone | [...] [place] | | | | | | [address] | | | | | | [phone] | | | +--------+ + + + [...] | | | | | [place] [address] | | | | | | [phone] | | | | | | | | +--------+---------+ + + + | 12/20/ | Office | Audiology | Elisabet Munson MS | | | 2019 | Visit | | [facility] [address] | | | | | [address] [place] | | | | | | [place] [address] | | | | | | [phone] | | | | | | | | +--------+---------+ + + + | 12/20/ | Office | Otolaryngology | Ulysses Genao MD | | | 2019 | Visit | | [address] | | | | | | [address] [place], | | | | | | [place] [address] | | | | | | [phone] | | | | | | | | +--------+---------+ + + + documented as of this encounter Visit Diagnoses Not on filedocumented in this encounter"
--- OUTSIDE RECORDS SUMMARY | ~2019-10-17 | XMS | Encounter Summary ---
Demographics + + + | Address | [address] | | | [place] [address] | + + + | Home Phone [...] Providers + +------+ + | Care Stock Controller Name | Role | Phone | [...] as of this encounter Progress Notes Interface, Optical Fabricator In - 04/07/2006 2:32 AM PDT [id number] GEOVANNI SKELTON Molly [id number] Clinic Date: 04/01/2006 Clinic: Rheumatology Belinda Meehan is here for a couple of trigger point injections. She comes from [place]. Tomorrow, she is due for an EGD [...] 4 months. Caitlin Rivera M.S., F.N.P. / [id number] / [id number] / [id number] / [id number] Electronically signed by Caitlin Rivera 04-06-2006 03:23:35 PM documented i n this encounter Plan of Treatment Not on filedocumented as of this encounter Visit Diagnoses Not on filedocumented in this encounter"
--- OUTSIDE RECORDS SUMMARY | ~2019-10-17 | XMS | Encounter Summary ---
Demographics + + + | Address | [address] | | | [place] [address] | + + + | Home Phone [...] Team Providers + +------+ + | Care Seo Executive Name | Role | Phone | + +------+ + | Sulaiman Carrera MD | PCP | | + +------+ + Encounter Details +--------+ + + + + | Date | Type | Department | Care Team | Description | +--------+ + + + + | 02/23/ | Ancillary | Registration [address] | Beto Meeks MD | | | 2006 | Registratio | [facility] | [address] | | | | n | [place] Mailcode: [id number] | [place], [place] | | | | | [place], [place] | [address] | | | | | [address] | [phone] | | | | | [phone] | | | +--------+ + + + [...] + + | [facility] | [address] | [place] [address] | | | LABORATORY | | | [...] [address] | | | | | | [facility] [place], [facility] [place] | | | | | | [address] | | | | | | [phone]. | | | | | | Sincere [...] [facility] | [address] | [place], [place] | | | [facility] | | [address] | | + + + + + documented in this encounter Visit Diagnoses Not on filedocumented in this encounter"
--- OUTSIDE RECORDS SUMMARY | ~2019-10-17 | XMS | Encounter Summary ---
Demographics + + + | Address | [address] | | | [place] [address] | + + + | Home Phone [...] Team Providers + +------+ + | Care Subsurface Augmentee Operator Name | Role | Phone | [...] | | | [facility] | [place], [place] | | | | | [address] | [address] | | | | | [address] | [phone] | | | | | [facility] | | | | | | Physician's | | | | | | Pavilion [place], | | | | | | [place] [address] | | | | | | [phone] | | | +--------+ + + + [...]
--- OUTSIDE RECORDS SUMMARY | ~2019-10-17 | XMS | Encounter Summary ---
Demographics + + + | Address | [address] | | | [place] [address] | + + + | Home Phone [...] Providers + +------+ + | Care Personal Injury Litigation Paralegal Name | Role | Phone | + [...] [id number] | | | | | | [place], [place] | | | | | | [address] | | | | | | [phone] | | | +--------+ + + + [...] | uIU/ml | | | | | [place] [...] | + + + + + | [facility] | [address] | [place] [address] | | | LABORATORY | | | | + + + + + documented in this encounter Visit Diagnoses Not on filedocumented in this encounter"
--- OUTSIDE RECORDS SUMMARY | ~2019-10-17 | XMS | Encounter Summary ---
Demographics + + + | Address | [address] | | | [place] [address] | + + + | Home Phone [...] Providers + +------+ + | Care Dental Prosthetist Name | Role | Phone | + [...] | | | [address] | [place], [place] | Examination; HTN | | | | [address] | [address] | (Hypertension); | | | | Mailcode: [id number] | [phone] | Chronic Pain | | | | [facility] | | | | | | [address] [facility] [place] | | | | | | [address] | | | | | | [phone] | | | +--------+---------+ + + + [...] dietary restrictions or a bowel preparation. Your [facility] gical team will give you additional [...] PM please call your surgeons' office for [id number]. PARKING Parking for patients and visitors is available in the [facility] Parking structure located across from the [...] ADVICE FOR DAY OF SURGERY: Remove nail syrian from at least one fingernail (if applicable) [...] surgeries scheduled to take place [place] the [place] at the [facility]: Surgeries scheduled in the [facility] ([address] [place] [address]): registration is located on the 4th floor of [facility] (Day Surgery). Surgeries scheduled in the [facility]: registration is located on the 9th floor . For surgeries scheduled to take place at the [facility]: registration i s located on the 4th floor (Surgery Center). AVOID THESE MEDICATIONS FOR 7 DAYS BEFORE SURGERY PRODUCTS CONTAINING ASPIRIN Jacquelyn-Altonah, Anacin, Anexsia with Codeine, Len nos, Aspirin, Aspirin suppositories, Ascri ptin, Aspergum, Axotal, B-A-C, Baby Aspirin, Lucila, BC Powder, Bexophene, Buffaprin, Bufferi n, Buffinol, Cama-Arthritis Strength, Congespirin, [place], Coricidin, Damason, Darvon, Dristan , Anastasia-Gesic, Digel, Dolprin #3 Tablets, Donatab, Doxaphene, Duragesic, Easprin, Ecotrin, Dipika grin Forte, Emiprin, Emprazil, Equagesic, Equazine M, Excedrin, Fiogesic, Fiorgen PH, Fioric et, Fiorinal, 4-Way Cold Tablet Gemnisyn, Indocin, Liquprin, Lortab ASA, Magnaprin, Marnal, Meprobamate, Midol, Momentum, N orgesic, [place], Orphengesic, Pabalate, P-A-C, Percodan, Presalin, Robaxasil, Roxiprin, Bunny eto, Salocol SK-65 Compound, Sine-Aid, Sine-Off,, [place], Supac, Talwin Compound, Trigesic, Tolectin , Traiminicin, Vanquish, ZORprin, Zomax PRODUCTS CONTAINING IBUPROFEN Advil, Aleve, Haltran, Medipren, Midol, Motrin, Naproxyn, Nuprin, Rufen OTHER PRODUCTS WHICH MAY PROMOTE BLEEDING Vitamin E, Gingko Biloba, Marine Fatty Acids, Clements-3 Fish Oil Supplements documented in this encounter [...] | + + + + + | [facility] | [address] | [place] [address] | | | PATHOLOGY | [address] | | | + + + + + | [facility] DEPARTMENT OF | [address] | [place] [address] | | | PATHOLOGY | [address] [...] | + + + + + | [facility] DEPARTMENT OF | [address] | [place] [address] | | | PATHOLOGY | [address] | | | + + + + + | [facility] | [address] | [place] [address] | | | PATHOLOGY | [address] [...] | | | DEPARTMENT | | | [facility] | | | OF | | | [...] [facility] | [address] | [place] [address] | | | PATHOLOGY | [address] | | | + + + + + | [facility] | [address] | [place] [address] | | | PATHOLOGY | [address] [...] | + + + + + | [facility] DEPARTMENT OF | [address] | [place] [address] | | | PATHOLOGY | [address] | | | + + + + + | [place] DEPARTMENT OF | [address] | [place] [address] | | | PATHOLOGY | [address] [...] view image for the detailed interpretation from [employer]. | CARDIOLOGY | | | | + + + + + + + + | Performing | Address | City/State/Zipcode | Phone Number | | Organization | | | | + + + + + | [facility] | [address] | [place], [place] | | | CARDIOLOGY | [address] | [address] | | + + + + + | [facility] | [address] | [place], [place] | | | CARDIOLOGY | [address] | [address] | | + + + + + [...]
--- OUTSIDE RECORDS SUMMARY | ~2019-10-17 | XMS | Encounter Summary ---
Demographics + + + | Address | [address] | | | [place] [address] | + + + | Home Phone [...] Providers + +------+ + | Care Branch Store Manager Name | Role | Phone | + +------+ + | Petrona Thapa | PCP | | | MD | | | + +------+ + Encounter Details +--------+ + + + + | Date | Type | Department | Care Team | Description | +--------+ + + + + | 09/06/ | Abstract | [facility] | Provider, | | | 2018 | | GASTROENTEROLOGY | MD [address] | | | | | [address] [facility] | [address] [address] | | | | | [address] [place] | [place] [address] | | | | | [address] | | | | | | [phone] | | | +--------+ + + + [...] | | | | | [place] [address] | | | | | | [phone] | | | | | | | | +--------+---------+ + + + | 12/20/ | Office | Audiology | Elisabet Munson MS | | | 2019 | Visit | | [facility] [address] | | | | | [address] [place] | | | | | | [place] [address] | | | | | | [phone] | | | | | | | | +--------+---------+ + + + | 12/20/ | Office | Otolaryngology | Ulysses Genao MD | | | 2019 | Visit | | [address] | | | | | | [address] [place], | | | | | | [place] [address] | | | | | | [phone] | | | | | | | [...]
--- OUTSIDE RECORDS SUMMARY | ~2019-10-17 | XMS | Encounter Summary ---
Demographics + + + | Address | [address] | | | [place] [address] | + + + | Home Phone [...] Providers + +------+ + | Care Wine And Spirits Clerk Name | Role | Phone | [...] + | 10/11/ | Refill | [facility] | Alanis, | Medication Refill | | 2019 | | MEDICINE [address] | MD Petrona | | | | | [facility] | [address] [place] [address] | | | | | [place] [address] | [place] [address] | | | | | [phone] | [phone] | | | | | | | [...] | | | | | [place] [address] | | | | | | [phone] | | | | | | | | +--------+---------+ + + + | 12/20/ | Office | Audiology | Elisabet Munson MS | | | 2019 | Visit | | [facility] [address] | | | | | | [place] [address] [place] | | | | | | [place] [address] | | | | | | [phone] | | | | | | | | +--------+---------+ + + + | 12/20/ | Office | Otolaryngology | Ulysses Genao MD | | | 2020 | Visit | | [address] [facility] | | | | | | [address] [place], | | | | | | [place] [address] | | | | | | [phone] | | | | | | | | +--------+---------+ + + + documented as of this encounter Visit Diagnoses Not on filedocumented in this encounter"
--- OUTSIDE RECORDS SUMMARY | ~2019-10-17 | XMS | Encounter Summary ---
Demographics + + + | Address | [address] | | | [place] [address] | + + + | Home Phone [...] Team Providers + +------+ + | Care Heater Operator Name | Role | Phone [...] [address] | | | | | | [facility] | | | | | | [place], [place] | | | | | | [address] | | | | | | [phone] | | | +--------+ + + + [...]
--- OUTSIDE RECORDS SUMMARY | ~2019-10-17 | XMS | Encounter Summary ---
Demographics + + + | Address | [address] | | | [place] [address] | + + + | Home Phone [...] + + | 03/21/ | Office | [facility] | Emmy-Kamlesh, | Migraine without | | 2019 | Visit | MEDICINE [address] | MD Petrona | aura and without | | | | Street [facility] | [address] [place] [address] | status migrainosus, | | | | [place] [address] | [place] [address] | not intractable | | | | [phone] | [phone] | (Primary Dx); | | | | [...] She is working with an orthopedist in [facility], and she anticipates that she will hav [...] migraine COPD (chronic obstructive pulmonary disease) ([facility]) Depression Diarrhea Dumping syndrome Fall at [...] Allergen Reactions Ensure Diarrhea Food Diarrhea Lactose Pgrtvsgjft-Mui-Gkqp-Codeine Other (See Comments) Balance problems Codeine Sulfate Nausea Only Food Allergy Formula Diarrhea Ensure Levofloxacin Hives, Itching and Rash Butalbital Ropinirole Amitriptyline Hcl Other (See Comments) Confused and questionable for seizures Ttrnkwitbh-Xpda-Veafbfmz Rash duplicate Kgrfcilkzi-Ogdv-Icvddpdv Hives and Rash Cephalexin Hives Ciprofloxacin Hives [...] 1. Parts of this documentwere created using [employer] speech recognition software. As a resu lt, there may be unintended word spelling errors. Every attempt was made to correct the di ctation. documente d in this encounter Plan of Treatment +--------+---------+ + + + | Date | Type | Specialty | Care Team | Description | +--------+---------+ + + + | 11/14/ | Office | Internal Medicine | Alanis, | | 2019 | Visit | | MD Petrona | | | | | | [address] [place] [address] | | | | | | [place] [address] | | | | | | [phone] | | | | | | | | +--------+---------+ + + + | 12/20/ | Office | Audiology | Elisabet Munson MS | | | 2019 | Visit | | [facility] [address] | | | | [address] [place] | | | | | | [place] [address] | | | | | | [phone] | | | | | | | | +--------+---------+ + + + | 12/20/ | Office | Otolaryngology | Ulysses Genao MD | | | 2019 | Visit | | [address] | | | | | | [address] [place], | | | | | | [place] [address] | | | | | | [phone] | | | | | | | [...] | | First dose on [facility] 10/15/17 at 1215 | | | [...]
--- OUTSIDE RECORDS SUMMARY | ~2019-10-17 | XMS | Encounter Summary ---
Demographics + + + | Address | [address] | | | [place] [address] [...] | | | | | [place], | | | | | | [place] [address] | | | | | | [phone] | | +--------+ + + + + [...] | | + +---------+ + + | [facility] DEPARTMENT OF | | | | [...] | | + +---------+ + + | [facility] DEPARTMENT OF | | | | [...] | | + +---------+ + + | [facility] DEPARTMENT OF | | | | | RADIOLOGY | | | | + +---------+ + + documented in this encounter Visit Diagnoses Not on filedocumented in this encounter"
--- OUTSIDE RECORDS SUMMARY | ~2019-10-17 | XMS | Encounter Summary ---
Demographics + + + | Address | [address] | | | [place] [address] | + + + | Home Phone [...] Providers + +------+ + | Care Senior Oracle Dba Name | Role | Phone | [...] + + | 07/16/ | Telephone | [facility] INTER[facility] | Alanis, | IV Medication | | 2017 | | MEDICINE [address] [place] [address] | MD Petrona | | | | | [facility] | [address] [place] [address] | | | | | [place] [address] | [place] [address] | | | | | [phone] | [phone] | | | | | | | [...] | | | | | [place] [address] | | | | | | [phone] | | | | | | | | +--------+---------+ + + + | 12/20/ | Office | Audiology | Elisabet Munson MS | | | 2019 | Visit | | [facility] [address] | | | | | | [address] | | | | | | [place] [address] | | | | | | [phone] | | | | | | | | +--------+---------+ + + + | 12/20/ | Office | Otolaryngology | Ulysses Genao MD | | | 2020 | Visit | | [address] | | | | | | [address] [place], | | | | | | [place] [address] | | | | | | [phone] | | | | | | | | +--------+---------+ + + + documented as of this encounter Visit Diagnoses Not on filedocumented in this encounter"
--- OUTSIDE RECORDS SUMMARY | ~2019-10-17 | XMS | Encounter Summary ---
Demographics + + + | Address | [address] | | | [place] [address] | + + + | Home Phone [...] Team Providers + +------+ + | Care Peel Oven Tender Name | Role | Phone | + +------+ + | Petrona Thapa | PCP | | | MD | | | + +------+ + Reason for Visit + + + | Reason | Comments | + + + | Pain Management | Sees pain clinic in [facility], Was switched to Simran 150mc | | [...] Acquired | | | | [place] [address] | [place] [address] | hypothyroidism; | | | | [phone] | [phone] | Chronic bilateral | | | | [...] with Pain Management Sees pain clinic in [facility], Was switched to Belbuca 150 Transbuccal every 12 hrs Results, Imaging HPI Belindavera Meehan is a 57 y.o. y/o female who presents today for f/u for several issues: Has had a visit w/ the pain in the [facility], [place], and they gave her a trial of [...] and has been on monthly B12 in [facility] for the last several months. REVIEW [...] (See Comments) Confused and questionable for seizures Vacclcoqsm-Nfrb-Ryzglczd Cephalexin Hives Ketorolac Hives Morphine Swelling Tramadol Hcl Nausea Only Ijbdlhvtiy-Uoad-Cviqqoqh Hives and Rash Ciprofloxacin Hives and Rash [...] Note: Parts of this documentwere created using [employer] speech recognition software. As a r esult, [...] | | | | | | [address] [place] [address] [place] | | | | | | [place] [address] | | | | | | [phone] | | | | | | | | +--------+---------+ + + + | 12/20/ | Office | Audiology | Elisabet Munson MS | | | 2019 | Visit | | [facility] [address] | | | | | | [address] [place] | | | | | | [place], [place] [address] | | | | | | [phone] | | | | | | | | +--------+---------+ + + + | 12/20/ | Office | Otolaryngology | Ulysses Genao MD | | | 2019 | Visit | | [address] | | | | | | [address] [place], | | | | | | [place] [address] | | | | | | [phone] | | | | | | | [...]
--- OUTSIDE RECORDS SUMMARY | ~2019-10-17 | XMS | Encounter Summary ---
Demographics + + + | Address | [address] | | | [place] [address] | + + + | Home Phone [...] Providers + +------+ + | Care Nurse First Aid Name | Role | Phone | [...] + + | 03/25/ | Refill | [facility] | Alanis, | Medication Refill | | 2016 | | MEDICINE [address] [place] [address] | MD Petrona | | | | | [facility] | [address] [place] [address] | | | | | [place] [address] | [place] [address] | | | | | [phone] | [phone] | | | | | | | [...] | | | | | [place] [address] | | | | | | [phone] | | | | | | | | +--------+---------+ + + + | 12/20/ | Office | Audiology | Elisabet Munson MS | | | 2019 | Visit | | [facility] [address] | | | | | | [place] [address] [place] | | | | | | [place] [address] | | | | | | [phone] | | | | | | | | +--------+---------+ + + + | 12/20/ | Office | Otolaryngology | Ulysses Genao MD | | | 2020 | Visit | | [address] [facility] | | | | | | [address] [place], | | | | | | [place] [address] | | | | | | [phone] | | | | | | | | +--------+---------+ + + + documented as of this encounter Visit Diagnoses Not on filedocumented in this encounter"
--- OUTSIDE RECORDS SUMMARY | ~2019-10-17 | XMS | Encounter Summary ---
Demographics + + + | Address | [address] | | | [place] [address] | + + + | Home Phone [...] Providers + +------+ + | Care Contracts Director Name | Role | Phone | [...] | | Essential | | | | [place], [place] | | hypertension 401.9; | | | | [address] | | Type II or | | | | [phone] | | unspecified type | | | [...] | | | LABORATORY | | | INDIAN | | | SERVICES, | | | [...] | + + + + + | [facility] | [address] | [place] [address] | | | SERVICES, CORE | [place] [...] + + + + + | [facility] | [address] | [place] [address] | | | SERVICES, CORE | [place] [...] | | If you are | | YELLOW JACKET | | | | screening for diabetes: [...] + | [facility] | [address] | [place] [address] | | | [place] | | | [...] [facility] | [address] | [place] [address] | | | SERVICES, SPECIAL | PARK [...] + + + + + | [facility] | [address] | [place] [address] | | | SERVICES, CORE | KE[place]AN [...] [facility] | [address] | [place] [address] | | | SERVICES, SPECIAL | KE[place]AN [...] by | | | | | | Signal[employer],[address] | | | | | | Abdiaziz Morales, [facility] [place] | | | | | | [address] | | | | | | [phone]. | | | | | | Get [...] [facility] | [address] | [place], [place] | | | [facility] | | [address] | | + + + + + [...] | + + + + + | [facility] | [address] | [place] [address] | | | SERVICES, SPECIAL | [place] [...] + | [facility] | [address] | [place] [address] | | | [place] | | | | + + + [...]
--- OUTSIDE RECORDS SUMMARY | ~2019-10-17 | XMS | Encounter Summary ---
Demographics + + + | Address | [address] | | | [place] [address] | + + + | Home Phone [...] Providers + +------+ + | Care Store Worker Name | Role | Phone | [...] | 01/17/ | Office | [facility] | Alanis, | Surgical wound | | 2019 | Visit | [address] | MD Petrona | infection (Primary | | | | [address] | [address] [place] [address] | Dx) | | | | [place] [address] | [place] [address] | | | | | [phone] | [phone] | | | | | | | [...] Procedure: COLONOSCOPY; Surgeon: Luther Brito MD; Location: [facility] MEDICAL PROCEDURE UNIT DILATION AND CURETTAGE OF UTERUS ELBOW SURGERY FINGER TRIGGER RELEASE 2002 FINGER TRIGGER RELEASE 2009 GASTRIC BYPASS SURGERY 2004 HYSTERECTOMY 05/14/1980 JOINT REPLACEMENT Bilateral 2006 2007 KNEE ARTHROSCOPY 2005 LAPAROSCOPY 01/27/2015 LAPAROTOMY 2008 ROTATOR CUFF REPAIR 2004 SPINE SURGERY TONSILLECTOMY 1964 UPPER GASTROINTESTINAL ENDOSCOPY N/A 12/18/2017 Procedure: EGD; Surgeon: Luther Brito MD; Location: [facility] MEDICAL PROCEDURE UNIT CURRENT MEDICATIONS Current Outpatient [...] Allergen Reactions Ensure Diarrhea Food Diarrhea Lactose Szwtouevnc-Lnw-Cvzv-Codeine Other (See Comments) Balance problems Codeine Sulfate Nausea Only Food Allergy Formula Diarrhea Ensure Levofloxacin Hives, Itching and Rash Butalbital Ropinirole Amitriptyline Hcl Other (See Comments) Confused and questionable for seizures Ytfjrdwegc-Wgzg-Jvqtwhxa Hives and Rash Cephalexin Hives Ciprofloxacin Hives [...] Note: Parts of this documentwere created using [employer] speech recognition software. As a r esult, [...] | | | | | [place] [address] | | | | | | [phone] | | | | | | | | +--------+---------+ + + + | 12/20/ | Office | Audiology | Elisabet Munson MS | | 2019 | Visit | | [facility] [address] | | | | | | [place] [address] [place] | | | | | | [place] [address] | | | | | | [phone] | | | | | | | | +--------+---------+ + + + | 12/20/ | Office | Otolaryngology | Ulysses Genao MD | | | 2019 | Visit | | [address] | | | | | | [address] [place], | | | | | | [place] [address] | | | | | | [phone] | | | | | | | | +--------+---------+ + + + documented as of this encounter Visit Diagnoses + + | Diagnosis | + + | Surgical wound infection - Primary Other postoperative infection | + + documented in this encounter
--- OUTSIDE RECORDS SUMMARY | ~2019-10-17 | XMS | Encounter Summary ---
Demographics + + + | Address | [address] | | | [place] [address] | + + + | Home Phone [...] Providers + +------+ + | Care Mica Spreader Name | Role | Phone | [...] + + | 03/01/ | Telephone | [facility] | Alanis, | Other | | 2018 | | MEDICINE [address] [place] [address] | MD Petrona | | | | | [facility] | [address] [place] [address] | | | | | [place] [address] | [place] [address] | | | | | [phone] | | | | | | | [...] Petrona | | | | | | [facility] [address] | | | | | | [place] [address] | | | | | | [phone] | | | | | | | | +--------+---------+ + + + | 12/20/ | Office | Audiology | Elisabet Munson MS | | | 2019 | Visit | | [facility] [address] | | | | | | [place] [address] [address] | | | | | | [place] [address] | | | | | | [phone] | | | | | | | | +--------+---------+ + + + | 12/20/ | Office | Otolaryngology | Ulysses Genao MD | | | 2019 | Visit | | [address] [facility] | | | | | | [address] [place], | | | | | | [place] [address] | | | | | | [phone] | | | | | | | | +--------+---------+ + + + documented as of this encounter Visit Diagnoses Not on filedocumented in this encounter"
--- OUTSIDE RECORDS SUMMARY | ~2019-10-17 | XMS | Encounter Summary ---
Demographics + + + | Address | [address] | | | [place] [address] | + + + | Home Phone [...] Providers + +------+ + | Care Photo Producer Name | Role | Phone | [...] | | abdominal | [place] | [address] [facility] | | | | | pain | Health & | [facility] | | | | | Procedures | Science | [address] [place], | | | | | REQUEST TO | University | [place] | | | | | SURGERY | [address] [facility] | [address] | | | | | MECHANICAL PRODUCT ENGINEER | Naeem Mcrae | Phone: | | | | | [place] | Rd | [phone] | | | | | EXPLORATORY | [place], [place] | Fax: | | | | | OF ABDOMEN | [address] | [phone] | | | | | [place] | | | | | | [...] | | | | | | [address] [place], | | | | | | | [place] | | | | | | | [address] | | | | | | | Phone: | | | | | | | [phone] | | | | | | | Fax: | | | | | | | [phone] | +--------+--------+ + + + + Encounter [...] | | | [facility] | [place], [place] | | | | | and Healing, | [address] | | | | | Building 1, 6th | [phone] | | | | | Floor [place], [place] | | | | | | [address] | | | | | | [phone] | | | +--------+---------+ + + + [...] resident s note. CHRIS RUANO MD [facility] [address] [facility], 6th [place] [address] Chris Peralta - 10:55 AM [...] not work at this time. Lives in [place], [place] FH: Noncontributory ROS: No recent fevers, [...] [facility] | [address] | [place] [address] | | | PATHOLOGY | [address] | | | + + + + + | [facility] | [address] | [place] [address] | | | PATHOLOGY | [address] [...]
--- OUTSIDE RECORDS SUMMARY | ~2019-10-17 | XMS | Encounter Summary ---
Demographics + + + | Address | [address] | | | [place] [address] | + + + | Home Phone [...] Team Providers + +------+ + | Care Oral Surgeon Name | Role | Phone | + +------+ + | Pedrito Gutierrez MD | PCP | | + +------+ + Encounter Details +--------+---------+ + + + | Date | Type | Department | Care Team | Description | +--------+---------+ + + + | 07/30/ | Office | Comprehensive Pain | Nathalia Arora | Cervical Spondylosis | | 2006 | Visit | [facility] | [address] | without Myelopathy | | | | [place] [address] | [address]ina [address]ler [place], | (Primary Dx); | | | | [address] Mailcode: | [place] [id number] | Spondylosis with | | | | [facility] | | Myelopathy, Lumbar | | | | Health and Healing, | | Region; Herniated | | | | Building | | Lumbar | | | | Floor [place], [place] | | Intervertebral Disc; | | | | [address] | | Unspecified Myalgia | | | | [phone] | | and Myositis | +--------+---------+ + [...] Progress Note Date: 07/30/2006 Belinda Barnes Shefali [id number] Start of Care: 06/23/2006 Referring Provider: [...] her today. Patient has multiple appts. At [facility] today, including a f/u [...] + + +--------+ + + | ND MANUAL THER | Procedures | Routin | [...] + + +--------+ + + | ND THERAPEUTIC | Procedures | Routin | Cervical [...]
--- OUTSIDE RECORDS SUMMARY | ~2019-10-17 | XMS | Encounter Summary ---
Demographics + + + | Address | [address] | | | [place] [address] | + + + | Home Phone [...] Team Providers + +------+ + | Care Storage Receipt Poster Name | Role | Phone | [...] + + | 09/14/ | Clinical | [facility] | Alanis, | B12 deficiency | | 2019 | Support | MEDICINE [address] [place] [address] | MD Petrona | | | | | [facility] | [address] [place] [address] | | | | | [place] [address] | [place] [address] | | | | | [phone] | [phone] | | | | | | | [...] as of this encounter Progress Teresa Tolbert, Transfer Clerk - 09/15/2019 10:15 AM PDTFormatting of this note calderon ht be different from the original. Administrations This Visit cyanocobalamin (VITAMIN B-12) injection 1,000 mcg Admin Date 09/15/2019 Action Given Dose 1000 mcg Route Intramuscular Administered By Teresa Mitchell, Transfer Clerk do cumented in this encounter Plan of Treatment +--------+---------+ + + + | Date | Type | Specialty | Care Team | Description | +--------+---------+ + + + | 11/14/ | Office | Internal Medicine | Alanis, | | 2019 | Visit | | MD Petrona | | | | | | [facility] [address] | | | | | | [place] [address] | | | | | | [phone] | | | | | | | | +--------+---------+ + + + | 12/20/ | Office | Audiology | Elisabet Munson MS | | | 2019 | Visit | | [facility] [address] | | | | | | [address] [place] | | | | | | [place] [address] | | | | | | [phone] | | | | | | | | +--------+---------+ + + + | 12/20/ | Office | Otolaryngology | Ulysses Genao MD | | | 2019 | Visit | | [address] | | | | | | [address] [place], | | | | | | [place] [address] | | | | | | [phone] | | | | | | | [...] | | | First dose on [facility] 10/15/17 at 1215 | | [...]
--- OUTSIDE RECORDS SUMMARY | ~2019-10-17 | XMS | Encounter Summary ---
Demographics + + + | Address | [address] | | | [place] [address] | + + + | Home Phone [...] + + | 04/08/ | Office | [facility] | Alanis, | Pressure injury of | | 2018 | Visit | MEDICINE [address] | MD Petrona | right buttock, stage | | | | [facility] | [address] [place] [address] | 1 (Primary Dx); [place] | | | | [place] [address] | [place] [address] | (obstructive sleep | | | | [phone] | [phone] | apnea); Lower leg | | | [...] Procedure: COLONOSCOPY; Surgeon: Luther Brito MD; Location: [facility] MEDICAL PROCEDURE UNIT DILATION AND CURETTAGE OF UTERUS ELBOW SURGERY FINGER TRIGGER RELEASE 2002 FINGER TRIGGER RELEASE 2009 GASTRIC BYPASS SURGERY 2004 HYSTERECTOMY 05/14/1980 JOINT REPLACEMENT Bilateral 2007 2007 KNEE ARTHROSCOPY 2005 LAPAROSCOPY 01/27/2015 LAPAROTOMY 2008 ROTATOR CUFF REPAIR 2005 SPINE SURGERY TONSILLECTOMY 1964 UPPER GASTROINTESTINAL ENDOSCOPY N/A 12/18/2017 Procedure: EGD; Surgeon: Luther Brito MD; Location: [facility] MEDICAL PROCEDURE UNIT CURRENT MEDICATIONS Current [...] (See Comments) Confused and questionable for seizures Dkawktsdjy-Atuk-Mkgrhoth Hives and Rash Cephalexin Hives Ciprofloxacin Hives [...] like to check with a provider in [place] which is closer to her home for [...] Note: Parts of this documentwere created using [employer] speech recognition software. As a r esult, [...] | | | | | [place] [address] | | | | | | [phone] | | | | | | | | +--------+---------+ + + + | 12/20/ | Office | Audiology | Elisabet Munson MS | | | 2019 | Visit | | [facility] [address] | | | | | [address] [place] | | | | | | [place] [address] | | | | | | [phone] | | | | | | | | +--------+---------+ + + + | 12/20/ | Office | Otolaryngology | Ulysses Genao MD | | | 2019 | Visit | | [address] | | | | | | [address] [place], | | | | | | [place] [address] | | | | | | [phone] | | | | | | | [...] | | First dose on [facility] 10/15/17 at 1215 | | | [...]
--- OUTSIDE RECORDS SUMMARY | ~2019-10-17 | XMS | Encounter Summary ---
Demographics + + + | Address | [address] | | | [place] [address] | + + + | Home Phone [...] Team Providers + +------+ + | Care Arboriculturist Name | Role | Phone | + [...] | | | | | | Mailcode: [facility] | | | | | | | [facility] | | | | | | | for Health | | | | | | | and Healing, | | | | | | | Building [address] | | | | | | | [facility] [place] | | | | | | | [address] | | | | | | | Phone: | | | | | | | [phone] | | | | | | | Fax: | | | | | | | [phone] | +--------+--------+ + + + + Encounter Details +--------+ + + + + | Date | Type | Department | Care Team | Description | +--------+ + + + + | 09/14/ | Hospital | [facility] PROCEDURE | Olivia, | | | 2008 | Encounter | [address] | MD Pedrito | | | | | Bethanie Mailcode: [facility] | | | | | | [facility] for | | | | | | Health and Healing, | | | | | | Building [address] | | | | | | [facility] [place] | | | | | | [address] | | | | | | [phone] | | | +--------+ + + + [...] Discharge Instructions Instructions Marleen Hogan - 09/14/2008 [facility] [address] [address] Toll Free ext: [phone] Home Care Instructions after EGD (Upper Endoscopy) [...] hours, or on weekends and holidays Hospital Cilnical Scientist and have the GI doctor recreation manager paged. The provider who performed your [...] Meehan is a 48 y.o. female MR# [id number] presents today for an EG D to [...] 01/22/2006 Tramadol 01/22/2006 Morphine Clarithromycin Hives 06/28/2007 Fvrhalb-kemludaqkw-xzt-caff 08/28/2008 See procedure note 09/14/2008 documented in [...]
--- OUTSIDE RECORDS SUMMARY | ~2019-10-17 | XMS | Encounter Summary ---
Demographics + + + | Address | [address] | | | [place] [address] | + + + | Home Phone [...] Providers + +------+ + | Care Exchange Underwriting Consultant Name | Role | Phone | [...] as of this encounter Progress Notes Interface, Glass Smoother In - 02/15/2006 2:03 AM PDT [id number] GEOVANNI SKELTON [place] [id number] Clinic Date: 10/23/2005 Clinic: Endocrinology Subjective: Belinda [...] her back on October 06, 2005, in [place], [place]. This study showed a moderate central disk bulge at L4-L5 consistent with a herniated nucleus pulposus. There has been some discussion by her physicians in [place] about the possibility of giving her epidural [...] most recent laboratory studies were performed in [place] on July 02, 2005. At that time, [...] months. Beto Meeks M.D. PD / HS [id number] / [id number] / [id number] / cc: Joanna Arshad M.D. [address] [place] [address] Electronically signed by Beto Meeks 02-14-2006 02:02:42 AM documented i n this encounter Plan of Treatment Not on filedocumented as of this encounter Visit Diagnoses Not on filedocumented in this encounter"
--- OUTSIDE RECORDS SUMMARY | ~2019-10-17 | XMS | Encounter Summary ---
Demographics + + + | Address | [address] | | | [place] [address] | + + + | Home Phone [...] Team Providers + +------+ + | Care Pluck Trimmer Name | Role | Phone | [...] + + | 03/29/ | Telephone | [facility] | Alanis, | Medication Prior | | 2017 | | MEDICINE [address] [place] [address] | MD Petrona | Authorization | | | | [facility] | [address] [place] [address] | (Gabapentin ) | | | | [place] [address] | [place] [address] | | | | | [phone] | [phone] | | | | | | | [...] | 2019 | Visit | | MD Pterona | | | | | | [address] | | | | | | [place] [address] | | | | | | [phone] | | | | | | | | +--------+---------+ + + + | 12/20/ | Office | Audiology | Elisabet Munson MS | | | 2019 | Visit | | [facility] [address] | | | | | | [place] [address] [address] | | | | | | [place] [address] | | | | | | [phone] | | | | | | | | +--------+---------+ + + + | 12/20/ | Office | Otolaryngology | Ulysses Genao MD | | | 2020 | Visit | | [address] [facility] | | | | | | [address] [place], | | | | | | [place] [address] | | | | | | [phone] | | | | | | | | +--------+---------+ + + + documented as of this encounter Visit Diagnoses Not on filedocumented in this encounter"
--- OUTSIDE RECORDS SUMMARY | ~2019-10-17 | XMS | Encounter Summary ---
Demographics + + + | Address | [address] | | | [place] [address] | + + + | Home Phone [...] Providers + +------+ + | Care Screen Cutter And Trimmer Name | Role | Phone [...] + + | 06/29/ | Telephone | [facility] | Alanis, | Illness | | 2018 | | MEDICINE [address] [place] [address] | MD Petrona | | | | | [facility] | [address] [place] [address] | | | | | [place] [address] | [place] [address] | | | | | [phone] | [phone] | | | | | | | [...] | | | | | [place] [address] | | | | | | [phone] | | | | | | | | +--------+---------+ + + + | 12/20/ | Office | Audiology | Elisabet Munson MS | | | 2019 | Visit | | [facility] [address] | | | | | | [place] [address] [place] | | | | | | [place] [address] | | | | | | [phone] | | | | | | | | +--------+---------+ + + + | 12/20/ | Office | Otolaryngology | Ulysses Genao MD | | | 2020 | Visit | | [address] [facility] | | | | | | [address] [place], | | | | | | [place] [address] | | | | | | [phone] | | | | | | | | +--------+---------+ + + + documented as of this encounter Visit Diagnoses Not on filedocumented in this encounter"
--- OUTSIDE RECORDS SUMMARY | ~2019-10-17 | XMS | Encounter Summary ---
Demographics + + + | Address | [address] | | | [place] [address] | + + + | Home Phone [...] Team Providers + +------+ + | Care Neonatal Critical Care Nurse Name | Role | Phone [...] | Visit | [facility] [address] | syndrome [address] | | | | [address] | | (Primary Dx); | | | | Physician's | | Fibromyalgia | | | | Pavilion, 4th Floor | | | | | | [place], [place] | | | | | | [address] | | | | | | [phone] | | | +--------+---------+ + + + [...] + + +--------+ + + | ND INJECT TRIGGER | Procedures | Routin | [...]
--- OUTSIDE RECORDS SUMMARY | ~2019-10-17 | XMS | Encounter Summary ---
Demographics + + + | Address | [address] | | | [place] [address] | + + + | Home Phone [...] Team Providers + +------+ + | Care First Aid Nurse Name | Role | Phone | [...] + + | 08/18/ | Telephone | [facility] | Miranda Lambert, | Follow-up Diabetic | | 2006 | | [facility] Center at | ANP | Assessment | | | | [facility] | | | | | | [address] | | | | | | Mailcode: [facility] | | | | | | [facility] | | | | | | and Healing, | | | | | | Building | | | | | | Floor [place], [place] | | | | | | [address] | | | | | | [phone] | | | +--------+ + + + [...]
--- OUTSIDE RECORDS SUMMARY | ~2019-10-17 | XMS | Encounter Summary ---
Demographics + + + | Address | [address] | | | [place] [address] | + + + | Home Phone [...] Providers + +------+ + | Care Test Automation Architect Name | Role | Phone | [...] + + | 02/09/ | Telephone | [facility] | Alanis, | Other | | 2019 | | MEDICINE [address] [place] [address] | MD Petrona | | | | | [facility] | [address] [place] [address] | | | | | [place] [address] | [place] [address] | | | | | [phone] | [phone] | | | | | | | [...] Petrona | | | | | | [facility] [address] | | | | | | [place] [address] | | | | | | [phone] | | | | | | | | +--------+---------+ + + + | 12/20/ | Office | Audiology | Elisabet Munson MS | | | 2019 | Visit | | [facility] [address] | | | | | | [place] [address] [address] | | | | | | [place] [address] | | | | | | [phone] | | | | | | | | +--------+---------+ + + + | 12/20/ | Office | Otolaryngology | Ulysses Genao MD | | | 2019 | Visit | | [address] [facility] | | | | | | [address] [place], | | | | | | [place] [address] | | | | | | [phone] | | | | | | | | +--------+---------+ + + + documented as of this encounter Visit Diagnoses Not on filedocumented in this encounter"
--- OUTSIDE RECORDS SUMMARY | ~2019-10-17 | XMS | Encounter Summary ---
Demographics + + + | Address | [address] | | | [place] [address] | + + + | Home Phone [...] Providers + +------+ + | Care English Adjunct Faculty Name | Role | Phone | + [...] + + | 09/04/ | Telephone | [facility] | Alanis, | Appointment Question | 2019 | | MEDICINE [address] [place] [address] | MD Petrona | | | | | [facility] | [address] [place] [address] | | | | | [place] [address] | [place] [address] | | | | | [phone] | [phone] | | | | | | | [...] GABRIEL | | | | | | [place] [address] | | | | | | [phone] | | | | | | | | +--------+---------+ + + + | 12/20/ | Office | Audiology | Elisabet Munson MS | | | 2019 | Visit | | [facility] [address] | | | | | | [place] [address] [address] | | | | | | [place] [address] | | | | | | [phone] | | | | | | | | +--------+---------+ + + + | 12/20/ | Office | Otolaryngology | Ulysses Genao MD | | | 2020 | Visit | | [address] [facility] | | | | | | [address] [place], | | | | | | [place] [address] | | | | | | [phone] | | | | | | | | +--------+---------+ + + + documented as of this encounter Visit Diagnoses Not on filedocumented in this encounter"
--- OUTSIDE RECORDS SUMMARY | ~2019-10-17 | XMS | Encounter Summary ---
Demographics + + + | Address | [address] | | | [place] [address] | + + + | Home Phone [...] Providers + +------+ + | Care Core Shaper Name | Role | Phone | [...] | | | | Clinical Nutrition | [place], [place] | | | | | [address] | [address] | | | | | Loop Mailcode: OPC5 | [phone] | | | | | Outpatient Clinic | | | | | | [facility] | | | | | | [place] [address] | | | | | | [phone] | | | +--------+ + + + [...] + + + | [facility] | [address] | [place] [address] | | | LABORATORY | | | [...] | uIU/ml | | | | | [facility] | | | | | | Laboratories. | | | | + + + + + + + + | Specimen | + + | | + + + + + + + | Performing | Address | City/State/Zipcode | Phone Number | | Organization | | | | + + + + + | [facility] | [address] | [place] [address] | | | LABORATORY | | | [...] DEPARTMENT OF | [address] | [place] [address] | | | PATHOLOGY | [address] | | | + + + + + | [place] DEPARTMENT OF | [address] | [place] [address] | | | PATHOLOGY | [address] | | | + + + + + documented in this encounter Visit Diagnoses Not on filedocumented in this encounter"
--- OUTSIDE RECORDS SUMMARY | ~2019-10-17 | XMS | Encounter Summary ---
Demographics + + + | Address | [address] | | | [place] [address] | + + + | Home Phone [...] Providers + +------+ + | Care Behavioral Scientist Name | Role | Phone | [...] as of this encounter Progress Notes Interface, Cilnical Scientist In - 01/12/2005 6:20 AM PDT JenniferBelinda garner [id number] MED REC NUMBER: [id number] NAME : Belinda Meehan DATE : 1960 DISCHARGE ASSESSMENT AND CASE MANAGEMENT NOTES Chart Reviewed: 2004-12-04 15:29:00 Purchasing Buyer: Lou Jordan RN Preadmission living situation: family If facilty, name: Additional needs assessment: Case Management Initial Assessment and Ongoing Notes: 12/04/2004 15:29 Rec'd referral from IR printout. Pt presenti jen for panniculectomy per Dr. Chris Pagdett 12/06/2004. ----- ------- Living Situation: Pt lives w/ her son, Sree in [place], [place]. Pt also has a caregiver from [facility] come in for 8-9 hours per day when her son is not home. Transportation: Pat w/ [facility] will take pt home (H) (C). Home Health: Pt has an RN from [facility] visit once a month for an assesment (H) or (C). Medical Equipment: Pt states that she has forearm crutches, a shower chair, and is working on getting hand bars installed into her shower. ---- Co-Morbidities: Panniculitis, s/p gastric bypass, arthritis, asthma, NIDDM, GERD, HTN, and sleep apnea. ------ Providers: PCP is Dr. Pedrito Gutierrez in [facility] and Dr. William Meeks [facility] metabolic disorder clinic. Narrative: Pt asked if [...] or concerns, [place] [address] documented i n this encounter Plan of Treatment Not on filedocumented as of this encounter Visit Diagnoses Not on filedocumented in this encounter"
--- OUTSIDE RECORDS SUMMARY | ~2019-10-17 | XMS | Encounter Summary ---
Demographics + + + | Address | [address] | | | [place] [address] | + + + | Home Phone [...] Team Providers + +------+ + | Care Skidder Name | Role | Phone | [...] + | 02/22/ | Refill | [facility] | Alanis, | Medication Refill | | 2017 | | MEDICINE [address] [place] [address] | MD Petrona | | | | | [facility] | [address] [place] [address] | | | | | [place] [address] | [place] [address] | | | | | [phone] | [phone] | | | | | | | [...] | | | | | [place] [address] | | | | | | [phone] | | | | | | | | +--------+---------+ + + + | 12/20/ | Office | Audiology | Elisabet Munson MS | | | 2019 | Visit | | [facility] [address] | | | | | | [place] [address] [place] | | | | | | [place] [address] | | | | | | [phone] | | | | | | | | +--------+---------+ + + + | 12/20/ | Office | Otolaryngology | Ulysses Genao MD | | | 2020 | Visit | | [address] [facility] | | | | | | [address] [place], | | | | | | [place] [address] | | | | | | [phone] | | | | | | | | +--------+---------+ + + + documented as of this encounter Visit Diagnoses Not on filedocumented in this encounter"
--- OUTSIDE RECORDS SUMMARY | ~2019-10-17 | XMS | Encounter Summary ---
Demographics + + + | Address | [address] | | | [place] [address] | + + + | Home Phone [...] Providers + +------+ + | Care Legal Archivist Name | Role | Phone | + [...] | | | | Clinical Nutrition | [place], [place] | | | | | [address] | [address] | | | | | Loop Mailcode: OPC5 | [phone] | | | | | Outpatient Clinic | | | | | | [facility] | | | | | | [place] [address] | | | | | | [phone] | | | +--------+ + + + [...] Blood Test performed by | | | [facility]. | | + + + + + + + + | Performing | Address | City/State/Zipcode | Phone Number | | Organization | | | | + + + + + | [facility] | [address] | [place] [address] | | | LABORATORY | | | [...] + + + | [facility] | [address] | [place] [address] | | | LABORATORY | | | | + + + + + documented in this encounter Visit Diagnoses Not on filedocumented in this encounter"
--- OUTSIDE RECORDS SUMMARY | ~2019-10-17 | XMS | Encounter Summary ---
Demographics + + + | Address | [address] | | | [place] [address] | + + + | Home Phone [...] Team Providers + +------+ + | Care Huc Ob Name | Role | Phone | [...] + + | 08/28/ | Office | [facility] Comprehensive | Delfina Lambert, | Neck Pain; Radicular | | 2008 | Visit | Pain Center at | ANP | Pain in Left Arm; | | | | [facility] | | Fibromyalgia; | | | | [address] | | Chronic Bilateral | | | | Mailcode: CH15P | | Shoulder Pain; | | | | [facility] | | Coccydynia; LBP (Low | | | | and Healing, | | Back Pain); | | | | Building | | Adjustment Disorder | | | | Floor [place], [place] | | with Anxiety; Major | | | | [address] | | Depressive Disorder, | | | | [phone] | | Recurrent Episode, | | | [...] Belinda Meehan is a 48 y.o. 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 documented in this [facility] Plan of Treatment Not on filedocumented [...]
--- OUTSIDE RECORDS SUMMARY | ~2019-10-17 | XMS | Encounter Summary ---
Demographics + + + | Address | [address] | | | [place] [address] | + + + | Home Phone [...] Providers + +------+ + | Care Producer Assistant Name | Role | Phone | [...] 2007 | Visit | Rheumatology [address] PRINTING ENGINEER | syndrome [address] | | | | [address] | | (Primary Dx) | | | | Mailcode: OPC5 | | | | | | Outpatient Clinic | | | | | | Building [place], | | | | | | [place] [address] | | | | | | [phone] | | | +--------+---------+ + + + [...] have much room. I wonder about small wine master ior fossa. There is a disc bulge [...] 07/05/2007 56.0 15.0-75.0 Final Test performed by [facility]. VITAMIN D 25 HYDROXY (ng/mL) 07/03/2007 47 20-57 Final Comment: TEST INFORMATION: VITAMIN D, 25-HYDROXY This assay accurately quantifies the sum of vitamin D3, 25-hydroxy and vitamin D2, 25-hydroxy. Deficiency: Less than 20 ng/mL Insufficiency: 20-29 ng/mL Optimum Level: 30-80 ng/mL Possible Toxicity: Greater than 80 ng/mL Performed by [facility], [address] [place] [id number] [email or web address], Sincere Jordan MD - Lab. Director documented in this encount er Plan of Treatment Not on filedocumented as of this encounter Visit Diagnoses + + | Diagnosis | + + | Fibromyalgia syndrome 729.1 - Primary Mylagia and myositis, unspecified | + + documented in this encounter"
--- OUTSIDE RECORDS SUMMARY | ~2019-10-17 | XMS | Encounter Summary ---
Demographics + + + | Address | [address] | | | [place] [address] | + + + | Home Phone [...] Providers + +------+ + | Care Scale Operator Name | Role | Phone | + +------+ + | Pedrito Gutierrez MD | PCP | | + +------+ + Encounter Details +--------+ + + + + | Date | Type | Department | Care Team | Description | +--------+ + + + + | 03/08/ | Telephone | Orthopaedics at | Hai [place]os, | | | 2008 | | [facility] [address] | | | | | | [address] | | | | | | Mailcode: PV430 | | | | | | [facility] | | | | | | [place], [place] | | | | | | [address] | | | | | | [phone] | | | +--------+ + + + [...]
--- OUTSIDE RECORDS SUMMARY | ~2019-10-17 | XMS | Encounter Summary ---
Demographics + + + | Address | [address] | | | [place] [address] | + + + | Home Phone [...] Team Providers + +------+ + | Care Chemistry Research Assistant Name | Role | Phone [...] | | | [facility] | [place], [place] | | | | | [address] | [address] | | | | | [address] | [phone] | | | | | Physician's | | | | | | Pavilion, 1st floor | | | | | | [place], [place] | | | | | | [address] | | | | | | [phone] | | | +--------+--------+ + + + [...]
--- OUTSIDE RECORDS SUMMARY | ~2019-10-17 | XMS | Encounter Summary ---
Demographics + + + | Address | [address] | | | [place] [address] | + + + | Home Phone [...] Providers + +------+ + | Care Corporate Receptionist Name | Role | Phone | [...] | | | | | hemorrhoid | [place], [place] | [address] | | | | | Rectal pain | [address] | [facility] | | | | | Procedures | | Rd [place], | | | | | CONSULT TO | | [place] | | | | | [place] | | [address] | | | | | SURGERY | | Phone: | | | | | | | [phone] | | | | | | | Fax: | | | | | | | [phone] | +--------+--------+ + + + + Encounter [...] | | | | Mailcode: Center | [place], [place] | | | | | and | [address] | | | | | [facility] 2 | [phone] | | | | | [place], [place] | | | | | | [address] | | | | | | [phone] | | | +--------+---------+ + + + [...] stool. She had a normal colonoscopy at [facility] in 2005 PMH: Past Medical History Diagnosis [...] 08/2007 right knee Hx lumbar fusion 05/2008 [id number] with bone spur removals Hx appendectomy Hx [...] (Ciprofloxacin) Tramadol Morphine IM ( only in [facility]) made gut pain worse 08/27/06: Trial of oral MSIR caused leg swelling Clarithromycin Hives Mainly in the legs Hzvjbpl-lvycdbvphq-ivn-caff Balance problems Amitriptyline Grand mal seizures SH: [...] | + + +--------+ + + | DC DIAGNOSTIC | Procedures | Routin | Anal or Rectal | Ordered: 10/05/2008 | | ANOSCOPY | | e | Pain | | + + +--------+ + + documented as of this encounter Visit Diagnoses + + | Diagnosis | + + | Anal or rectal pain - Primary | + + documented in this encounter
--- OUTSIDE RECORDS SUMMARY | ~2019-10-17 | XMS | Encounter Summary ---
Demographics + + + | Address | [address] | | | [place] [address] | + + + | Home Phone [...] Providers + +------+ + | Care Customer Engagement Analyst Name | Role | Phone | [...] as of this encounter Progress Notes Interface, Alining Inspector In - 01/12/2005 9:13 AM PDT [id number] [facility] Date: 04/10/2004 Clinic: Rheumatology [...] and it is worse in early childhood and early evening. Her IGF-1 was low [...] 3 months. Caitlin Rivera M.S., F.N.P. / [id number] / [id number] / [id number] / cc: Pedrito Gutierrez M.D. [address] [facility] [place] [address] documented i n this encounter Plan of Treatment Not on filedocumented as of this encounter Visit Diagnoses Not on filedocumented in this encounter"
--- OUTSIDE RECORDS SUMMARY | ~2019-10-17 | XMS | Encounter Summary ---
Demographics + + + | Address | [address] | | | [place] [address] | + + + | Home Phone [...] Providers + +------+ + | Care Retail And Restaurant Associate Name | Role | Phone | [...] + + | 05/04/ | Refill | [facility] | Alanis, | Medication Refill | | 2017 | | MEDICINE [address] [place] [address] | MD Petrona | | | | | [facility] | [address] [place] [address] | | | | | [place] [address] | [place] [address] | | | | | [phone] | [phone] | | | | | | | [...] | | | | | [place] [address] | | | | | | [phone] | | | | | | | | +--------+---------+ + + + | 12/20/ | Office | Audiology | Elisabet Munson MS | | | 2019 | Visit | | [facility] [address] | | | | | | [place] [address] [place] | | | | | | [place] [address] | | | | | | [phone] | | | | | | | | +--------+---------+ + + + | 12/20/ | Office | Otolaryngology | Ulysses Genao MD | | | 2020 | Visit | | [address] [facility] | | | | | | [address] [place], | | | | | | [place] [address] | | | | | | [phone] | | | | | | | | +--------+---------+ + + + documented as of this encounter Visit Diagnoses Not on filedocumented in this encounter"
--- OUTSIDE RECORDS SUMMARY | ~2019-10-17 | XMS | Encounter Summary ---
Demographics + + + | Address | [address] | | | [place] [address] | + + + | Home Phone [...] Providers + +------+ + | Care Cloth Winder Machine Operator Name | Role | Phone [...] | | Center at [facility] [address] | [address] | | | | | [address] | , [address] | | | | | Mailcode: Center | [place], [place] | | | | | [facility] and | [address] | | | | | Healing, Building [address] | [phone] | | | | | [place], [place] | | | | | | [address] | | | | | | [phone] | | | +--------+ + + + [...]
--- OUTSIDE RECORDS SUMMARY | ~2019-10-17 | XMS | Encounter Summary ---
Demographics + + + | Address | [address] | | | [place] [address] | + + + | Home Phone [...] Providers + +------+ + | Care Manager Steel Name | Role | Phone | + [...] + + | 02/17/ | Clinical | [facility] | Alanis, | Vitamin B12 | | 2017 | Support | MEDICINE [address] [place] [address] | MD Petrona | deficiency | | | | [facility] | [address] [place] [address] | | | | | [place] [address] | [place] [address] | | | | | [phone] | [phone] | | | | | | | [...] | | | | | [place] [address] | | | | | | [phone] | | | | | | | | +--------+---------+ + + + | 12/20/ | Office | Audiology | Elisabet Munson MS | | | 2019 | Visit | | [facility] [address] | | | | | [address] [place] | | | | | | [place] [address] | | | | | | [phone] | | | | | | | | +--------+---------+ + + + | 12/20/ | Office | Otolaryngology | Ulysess Genao MD | | | 2019 | Visit | | [address] | | | | | | [address] [place], | | | | | | [place] [address] | | | | | | [phone] | | | | | | | [...]
--- OUTSIDE RECORDS SUMMARY | ~2019-10-17 | XMS | Encounter Summary ---
Demographics + + + | Address | [address] | | | [place] [address] | + + + | Home Phone [...] Team Providers + +------+ + | Care Sieve Repairer Name | Role | Phone | + +------+ + | Petrona Thapa | PCP | | | MD | | | + +------+ + Encounter Details +--------+ + + + + | Date | Type | Department | Care Team | Description | +--------+ + + + + | 10/04/ | Documentati | [facility] | Alanis, | | | 2019 | on | MEDICINE [address] | MD Petrona | | | | | [address] [place] | [address] [facility] | | | | | [place] [address] | [place] [address] | | | | | [phone] | [phone] | | | | | | | [...] | | | | | [place] [address] | | | | | | [phone] | | | | | | | | +--------+---------+ + + + | 12/20/ | Office | Audiology | Elisabet Munson MS | | | 2019 | Visit | | [facility] [address] | | | | | [address] [place] | | | | | | [place] [address] | | | | | | [phone] | | | | | | | | +--------+---------+ + + + | 12/20/ | Office | Otolaryngology | Ulysses Genao MD | | | 2019 | Visit | | [address] | | | | | | [address] [place], | | | | | | [place] [address] | | | | | | [phone] | | | | | | | | +--------+---------+ + + + documented as of this encounter Visit Diagnoses Not on filedocumented in this encounter"
--- OUTSIDE RECORDS SUMMARY | ~2019-10-17 | XMS | Encounter Summary ---
Demographics + + + | Address | [address] | | | [place] [address] | + + + | Home Phone [...] Providers + +------+ + | Care Tire Recapper Name | Role | Phone | [...] + | 02/03/ | Refill | [facility] | Alanis, | Medication Refill | | 2017 | | MEDICINE [address] [place] [address] | MD Petrona | | | | | [facility] | [address] [place] [address] | | | | | [place] [address] | [place] [address] | | | | | [phone] | [phone] | | | | | | | [...] | | | | | [place] [address] | | | | | | [phone] | | | | | | | | +--------+---------+ + + + | 12/20/ | Office | Audiology | Elisabet Munson MS | | | 2019 | Visit | | [facility] [address] | | | | | | [place] [address] [place] | | | | | | [place] [address] | | | | | | [phone] | | | | | | | | +--------+---------+ + + + | 12/20/ | Office | Otolaryngology | Ulysses Genao MD | | | 2020 | Visit | | [address] [facility] | | | | | | [address] [place], | | | | | | [place] [address] | | | | | | [phone] | | | | | | | | +--------+---------+ + + + documented as of this encounter Visit Diagnoses Not on filedocumented in this encounter"
--- OUTSIDE RECORDS SUMMARY | ~2019-10-17 | XMS | Encounter Summary ---
Demographics + + + | Address | [address] | | | [place] [address] | + + + | Home Phone [...] Team Providers + +------+ + | Care Biometric Screener Name | Role | Phone | [...] | | | | Clinical Nutrition | [place], [place] | | | | | [address] | [address] | | | | | Loop Mailcode: OPC5 | [phone] | | | | | Outpatient Clinic | | | | | | [facility] | | | | | | [place] [address] | | | | | | [phone] | | | +--------+ + + + [...] [facility] | [address] | [place] [address] | | | PATHOLOGY | [address] | | | + + + + + | [facility] | [facility] | [place] [address] | | | PATHOLOGY | [address] | | | + + + + + documented in this encounter Visit Diagnoses Not on filedocumented in this encounter"
--- OUTSIDE RECORDS SUMMARY | ~2019-10-17 | XMS | Encounter Summary ---
Demographics + + + | Address | [address] | | | [place] [address] | + + + | Home Phone [...] Providers + +------+ + | Care Instrumentation Technologist Name | Role | Phone | [...] | | | | | [address] | [place], [place] | | | | | [place], [place] | [address] | | | | | [address] | | | | | | [phone] | | | +--------+ + + + [...] Electronic Medical Record (EMR) system used by [facility] will be updated. The category used [...] insure continuity of care. Please contact the [facility] at with any [...] | | | | | [place] [address] | | | | | | [phone] | | | | | | | | +--------+---------+ + + + | 12/20/ | Office | Audiology | Elisabet Munson MS | | 2019 | Visit | | [facility] | | | | | [facility] [address] | | | | | | [place] [address] | | | | | | [phone] | | | | | | | | +--------+---------+ + + + | 12/20/ | Office | Otolaryngology | Ulysses Genao MD | | | 2019 | Visit | | [address] [facility] | | | | | | [address] [place], | | | | | | [place] [address] | | | | | | [phone] | | | | | | | | +--------+---------+ + + + documented as of this encounter Visit Diagnoses Not on filedocumented in this encounter"
--- OUTSIDE RECORDS SUMMARY | ~2019-10-17 | XMS | Encounter Summary ---
Demographics + + + | Address | [address] | | | [place] [address] | + + + | Home Phone [...] Providers + +------+ + | Care Deputy Of Counter Intelligence Name | Role | Phone | [...] | RE/Emmy | [place], [place] | [place], [place] | | | | | Procedures | [address] | [address] Phone: | | | | | [place] | Phone: | [phone] | | | | | SPONTANEOUS | [phone] | Fax: | | | | | [place]STAG[place]US | Fax: | [phone] | | | | | TEST [place] | [phone] | | | | | | POSITIONAL [...] + | 12/07/ | Office | [facility] | Elisabet Munson, [place] | Vertigo of central | | 2015 | Visit | AUDIOLOGY AND | [facility] [address] | origin, unspecified | | | | HEARING AID SERVICES | [address] [facility] | laterality (Primary | | | | [address] | [place] [address] | Dx) | | | | [facility] | [phone] | | | | | [place] [address] | | | | | | [phone] | | | +--------+---------+ + + + [...] M.D. VNG testing revealed abnormal oculomotor subtests. [place] pike revealed nystagmus when [...] | | | | | [place] [address] | | | | | | [phone] | | | | | | | | +--------+---------+ + + + | 12/20/ | Office | Audiology | Elisabet Munson MS | | | 2019 | Visit | | [facility] [address] | | | | | | [address] [place] | | | | | | [place] [address] | | | | | | [phone] | | | | | | | | +--------+---------+ + + + | 12/20/ | Office | Otolaryngology | Ulysses Genao MD | | | 2019 | Visit | | [address] | | | | | | [address] [place], | | | | | | [place] [address] | | | | | | [phone] | | | | | | | [...]
--- OUTSIDE RECORDS SUMMARY | ~2019-10-17 | XMS | Encounter Summary ---
Demographics + + + | Address | [address] | | | [place] [address] | + + + | Home Phone [...] Providers + +------+ + | Care Machine Steak Tenderizer Name | Role | Phone | + [...] + + | 11/16/ | Telephone | [facility] | Alanis, | Lab Results | | 2019 | | MEDICINE [address] [place] [address] | MD Petrona | | | | | [facility] | [address] [place] [address] | | | | | [place] [address] | [place] [address] | | | | | [phone] | [phone] | | | | | | | [...] | | | | | [place] [address] | | | | | | [phone] | | | | | | | | +--------+---------+ + + + | 12/20/ | Office | Audiology | Elisabet Munson MS | | | 2020 | Visit | | [facility] [address] | | | | | | [address] [place] [address] [place] | | | | | | [place] [address] | | | | | | [phone] | | | | | | | | +--------+---------+ + + + | 12/20/ | Office | Otolaryngology | Ulysses Genao MD | | | 2020 | Visit | | [address] | | | | | | [address] [place], | | | | | | [place] [address] | | | | | | [phone] | | | | | | | | +--------+---------+ + + + documented as of this encounter Visit Diagnoses Not on filedocumented in this encounter"
--- OUTSIDE RECORDS SUMMARY | ~2019-10-17 | XMS | Encounter Summary ---
Demographics + + + | Address | [address] | | | [place] [address] | + + + | Home Phone [...] Team Providers + +------+ + | Care Lyric Writer Name | Role | Phone | [...] | | | | Clinical Nutrition | [place], [place] | | | | | [address] | [address] | | | | | Loop Mailcode: OPC5 | [phone] | | | | | Outpatient Clinic | | | | | | [facility] | | | | | | [place] [address] | | | | | | [phone] | | | +--------+ + + + [...] [facility] | [address] | [place], [place] | | | UNIV PTH - INTFC | | [address] | | + + + + + [...] | [facility] | [address] | [place] [address] | | | LABORATORY | | | [...] DEPARTMENT OF | [address] | [place] [address] | | | PATHOLOGY | [address] | | | + + + + + | [facility] DEPARTMENT OF | [address] | [place] [address] | | | PATHOLOGY | [address] | | | + + + + + LIPASE (01/11/2002 3:50 PM PDT) + +--------+ + + + | Component | Value | Ref Range | Performed | Pathologist | | | | | At | Signature | + +--------+ + + + | LIPASE | 21 (L) | 22 - 51 U/L | [facility] | | | (LAB) | | [...] + + + + + | [facility] | [address] [facility] | [place] [address] | | | PATHOLOGY | [address] | | | + + + + + | [facility] | [facility] | [place] [address] | | | PATHOLOGY | [address] [...] DEPARTMENT OF | [address] | [place] [address] | | | PATHOLOGY | [address] | | | + + + + + | [facility] DEPARTMENT | [address] | [place] [address] | | | PATHOLOGY | [address] [...] + + + + + | [facility] | [address] | [place] [address] | | | PATHOLOGY | [address] | | | + + + + + | [facility] | [facility] | [place] [address] | | | PATHOLOGY | [address] | | | + + + + + documented in this encounter Visit Diagnoses Not on filedocumented in this encounter"
--- OUTSIDE RECORDS SUMMARY | ~2019-10-17 | XMS | Encounter Summary ---
Demographics + + + | Address | [address] | | | [place] [address] | + + + | Home Phone [...] Team Providers + +------+ + | Care [id number] Armor Crewman Name | Role | Phone | [...] + + | 05/14/ | Telephone | [facility] | Erich Conley MD | Medication Refill | | 2018 | | MEDICINE [address] [place] [address] | [address] [facility] | | | | | Street [facility] | [place] | | | | | [place] [address] | [address] | | | | | [phone] | | | +--------+ + + + [...] | | | | | [place] [address] | | | | | | [phone] | | | | | | | | +--------+---------+ + + + | 12/20/ | Office | Audiology | Elisabet Munson MS | | | 2019 | Visit | | [facility] [address] | | | | | | [place] [address] [place] | | | | | | [place] [address] | | | | | | [phone] | | | | | | | | +--------+---------+ + + + | 12/20/ | Office | Otolaryngology | Ulysses Genao MD | | | 2020 | Visit | | [address] | | | | | | [address] [place], | | | | | | [place] [address] | | | | | | [phone] | | | | | | | | +--------+---------+ + + + documented as of this encounter Visit Diagnoses Not on filedocumented in this encounter"
--- OUTSIDE RECORDS SUMMARY | ~2019-10-17 | XMS | Encounter Summary ---
Demographics + + + | Address | [address] | | | [place] [address] | + + + | Home Phone [...] as of this encounter Progress Notes Interface, Parking Assistant In - 08/30/2005 2:07 AM PST [id number] GEOVANNI Barnes Clinic Date: 07/24/2005 Clinic: Surgery [...] for surgery. Chris Padgett M.D. ROSA / [id number] / [id number] / [id number] / [id number] Electronically signed by Chris Padgett 08-29-2005 03:28:14 PM documented i n this encounter Plan of Treatment Not on filedocumented as of this encounter Visit Diagnoses Not on filedocumented in this encounter"
--- OUTSIDE RECORDS SUMMARY | ~2019-10-17 | XMS | Encounter Summary ---
Demographics + + + | Address | [address] | | | [place] [address] | + + + | Home Phone [...] Providers + +------+ + | Care Branch Assistant Name | Role | Phone | + +------+ + | Maria Esther Cintron MD | PCP | | + +------+ + Encounter Details +--------+ + + + + | Date | Type | Department | Care Team | Description | +--------+ + + + + | 04/19/ | Telephone | [facility] | Chris Padgett, | | | 2007 | | [place] [address] | [address] [facility] | | | | | Bethanie Mailcode: CH4S | Naeem Mcrae | | | | | [facility] | [place], [place] | | | | | and Healing, | [address] | | | | | Building , 6th | [phone] | | | | | Floor [place], [place] | | | | | | [address] | | | | | | [phone] | | | +--------+ + + + [...]
--- OUTSIDE RECORDS SUMMARY | ~2019-10-17 | XMS | Encounter Summary ---
Demographics + + + | Address | [address] | | | [place] [address] | + + + | Home Phone [...] Team Providers + +------+ + | Care Infantry Operations Specialist Name | Role | Phone [...] + + | 01/04/ | Telephone | [facility] | Alanis, | Skin Irritation | | 2017 | | MEDICINE [address] [place] [address] | MD Petrona | | | | | [facility] | [address] [place] [address] | | | | | [place] [address] | [place] [address] | | | | | [phone] | [phone] | | | | | | | [...] | | | | | [place] [address] | | | | | | [phone] | | | | | | | | +--------+---------+ + + + | 12/20/ | Office | Audiology | Elisabet Munson MS | | | 2019 | Visit | | [facility] [address] | | | | | | [address] [place] [address] [place] | | | | | | [place] [address] | | | | | | [phone] | | | | | | | | +--------+---------+ + + + | 12/20/ | Office | Otolaryngology | Ulysses Genao MD | | | 2020 | Visit | | [address] | | | | | | [address] [place], | | | | | | [place] [address] | | | | | | [phone] | | | | | | | | +--------+---------+ + + + documented as of this encounter Visit Diagnoses + + | Diagnosis | + + | Tinea cruris - Primary Dermatophytosis of groin and perianal area | + + documented in this encounter"
--- OUTSIDE RECORDS SUMMARY | ~2019-10-17 | XMS | Encounter Summary ---
Demographics + + + | Address | [address] | | | [place] [address] | + + + | Home Phone [...] and Services [place] | | | and Jariana | + + + | Organization | [...] Providers + +------+ + | Care Admissions Director Name | Role | Phone | [...] + + | 06/03/ | Telephone | [facility] | Alanis, | Referral | | 2017 | | MEDICINE [address] [place] [address] | MD Petrona | | | | | [facility] | [address] [place] [address] | | | | | [place] [address] | [place] [address] | | | | | [phone] | [phone] | | | | | | | [...] | | | | | [place] [address] | | | | | | [phone] | | | | | | | | +--------+---------+ + + + | 12/20/ | Office | Audiology | Elisabet Munson MS | | | 2019 | Visit | | [facility] [address] | | | | | | [address] [place] [address] [place] | | | | | | [place] [address] | | | | | | [phone] | | | | | | | | +--------+---------+ + + + | 12/20/ | Office | Otolaryngology | Ulysses Genao MD | | | 2020 | Visit | | [address] [facility] | | | | | [address] [place], | | | | | | [place] [address] | | | | | | [phone] | | | | | | | | +--------+---------+ + + + documented as of this encounter Visit Diagnoses Not on filedocumented in this encounter"
--- OUTSIDE RECORDS SUMMARY | ~2019-10-17 | XMS | Encounter Summary ---
Demographics + + + | Address | [address] | | | [place] [address] | + + + | Home Phone [...] Providers + +------+ + | Care Worm Farmer Name | Role | Phone | [...] Naeem Mcrae | | | | | [facility] | [place], [place] | | | | | and Healing, | [address] | | | | | [facility], [facility] | [phone] | | | | | Floor [place], [place] | | | | | | [address] | | | | | | [phone] | | | +--------+ + + + [...]
--- OUTSIDE RECORDS SUMMARY | ~2019-10-17 | XMS | Encounter Summary ---
Demographics + + + | Address | [address] | | | [place] [address] | + + + | Home Phone [...] Team Providers + +------+ + | Care Dot Etcher Apprentice Name | Role | Phone | [...] + + | 01/08/ | Telephone | [facility] | Alanis, | Results, Imaging | | 2017 | | MEDICINE [address] | MD Petrona | | | | | [facility] | [address] [place] [address] | | | | | [place] [address] | [place] [address] | | | | | [phone] | [phone] | | | | | | | [...] GABRIEL | | | | | | [place] [address] | | | | | | [phone] | | | | | | | | +--------+---------+ + + + | 12/20/ | Office | Audiology | Elisabet Munson MS | | | 2019 | Visit | | [facility] [address] | | | | | | [place] [address] [place] | | | | | | [place] [address] | | | | | | [phone] | | | | | | | | +--------+---------+ + + + | 12/20/ | Office | Otolaryngology | Ulysses Genao MD | | | 2020 | Visit | | [address] [facility] | | | | | | [address] [place], | | | | | | [place] [address] | | | | | | [phone] | | | | | | | | +--------+---------+ + + + documented as of this encounter Visit Diagnoses Not on filedocumented in this encounter"
--- OUTSIDE RECORDS SUMMARY | ~2019-10-17 | XMS | Encounter Summary ---
Demographics + + + | Address | [address] | | | [place] [address] | + + + | Home Phone [...] Providers + +------+ + | Care Agile Java Developer Name | Role | Phone [...] | 2006 | Visit | [facility] | MD Darrion,PhD [address] | (Primary Dx) | | | | for Health and | [address] | | | | | Healing [address] | [place], [place] | | | | | Ave Mailcode: | [address] | | | | | CH[facility] | [phone] | | | | | Health and Healing, | | | | | | [facility] [address] | | | | | | Floor [place], [place] | | | | | | [address] | | | | | | [phone] | | | +--------+---------+ + + + [...] Morphine IM ( only in [facility]) made gut pain worse REVIEW OF [...] normal limits except as noted. RIGHT LEFT [place] Crepitation J Sign Apprehension LIGAMENTS: Within normal [...] are not effective. Angel Morales M.D., Ph.D. Collection Systems Foreman, Surgical Clinical Physician Assistant Orthopedics & Cartilage Reconstruction Surgery Department of Orthopedics [email or web address] documented in this encou nter Plan of Treatment Not on filedocumented as of this encounter Visit Diagnoses + + | Diagnosis | + + | Osteoarthrosis, unspecified whether generalized or localized, lower leg - Primary | + + documented in this encounter
--- OUTSIDE RECORDS SUMMARY | ~2019-10-17 | XMS | Encounter Summary ---
Demographics + + + | Address | [address] | | | [place] [address] | + + + | Home Phone [...] Providers + +------+ + | Care Administrative Services Director Name | Role | Phone [...] | | | | [address] | [place] [address] | | | | | | [place], | Phone: | | | | | | [place] | [phone] | | | | | | [address] | Fax: | | | | | | Phone: | [phone] | | | | | | [phone] | | | | | | | Fax: | | | | | | | [phone] | | +--------+ + + + + + Encounter Details +--------+---------+ + + + | Date | Type | Department | Care Team | Description | +--------+---------+ + + + | 12/30/ | Office | [facility] | Ulysses Genao MD | Benign paroxysmal | | 2018 | Visit | OTOLARYNGOLOGY [address] | [address] | positional vertigo, | | | | [address] | [address] [place], | unspecified | | | | [place], [place] | [place] [address] | laterality (Primary | | | | [address] | [phone] | Dx); Dysfunction of | | | | [phone] | | left eustachian tube | +--------+---------+ [...] negative nichole ft to it. Her speech molecular pathologist threshold is 20 dB in the right [...] | | | | | [place] [address] | | | | | | [phone] | | | | | | | | +--------+---------+ + + + | 12/20/ | Office | Audiology | Elisabet Munson MS | | | 2019 | Visit | | [facility] [address] | | | | | | [address] [place] | | | | | | [place] [address] | | | | | | [phone] | | | | | | | | +--------+---------+ + + + | 12/20/ | Office | Otolaryngology | Ulysses Genao MD | | | 2019 | Visit | | [address] [place] | | | | | | [address] [place], | | | | | | [place] [address] | | | | | | [phone] | | | | | | | [...]
--- OUTSIDE RECORDS SUMMARY | ~2019-10-17 | XMS | Encounter Summary ---
Demographics + + + | Address | [address] | | | [place] [address] | + + + | Home Phone [...] Providers + +------+ + | Care Mechanical Manufacturing Engineer Name | Role | Phone [...] CH15P | | | | | | [place] for [facility] | | | | | | and Healing, | | | | | | | | | | | | Floor [place], [place] | | | | | | [address] | | | | | | [phone] | | | +--------+ + + + [...]
--- OUTSIDE RECORDS SUMMARY | ~2019-10-17 | XMS | Encounter Summary ---
Demographics + + + | Address | [address] | | | [place] [address] | + + + | Home Phone [...] Team Providers + +------+ + | Care Go Cart Mechanic Name | Role | Phone | [...] + + | 04/08/ | Telephone | [facility] | Alanis, | Headache | | 2017 | | MEDICINE [address] [place] [address] | MD Petrona | | | | | [facility] | [address] [facility] | | | | | [place] [address] | [place] [address] | | | | | [phone] | [phone] | | | | | | | [...] | | | | | [place] [address] | | | | | | [phone] | | | | | | | | +--------+---------+ + + + | 12/20/ | Office | Audiology | Elisabet Munson MS | | | 2019 | Visit | | [facility] [address] | | | | | | [place] [address] [place] | | | | | | [place] [address] | | | | | | [phone] | | | | | | | | +--------+---------+ + + + | 12/20/ | Office | Otolaryngology | Ulysses Genao MD | | | 2020 | Visit | | [address] | | | | | | [address] [place], | | | | | | [place] [address] | | | | | | [phone] | | | | | | | | +--------+---------+ + + + documented as of this encounter Visit Diagnoses Not on filedocumented in this encounter"
--- OUTSIDE RECORDS SUMMARY | ~2019-10-17 | XMS | Encounter Summary ---
Demographics + + + | Address | [address] | | | [place] [address] | + + + | Home Phone [...] Team Providers + +------+ + | Care Racing Car Driver Name | Role | Phone | [...] + | 07/19/ | Refill | [facility] | Alanis, | Medication Refill | | 2019 | | MEDICINE [address] | MD Petrona | | | | | [facility] | [address] [place] [address] | | | | | [place] [address] | [place] [address] | | | | | [phone] | [phone] | | | | | | | [...] | | | | | [place] [address] | | | | | | [phone] | | | | | | | | +--------+---------+ + + + | 12/20/ | Office | Audiology | Elisabet Munson MS | | | 2019 | Visit | | [facility] [address] | | | | | | [place] [address] [place] | | | | | | [place] [address] | | | | | | [phone] | | | | | | | | +--------+---------+ + + + | 12/20/ | Office | Otolaryngology | Ulysses Genao MD | | | 2020 | Visit | | [address] [facility] | | | | | | [address] [place], | | | | | | [place] [address] | | | | | | [phone] | | | | | | | | +--------+---------+ + + + documented as of this encounter Visit Diagnoses Not on filedocumented in this encounter"
--- OUTSIDE RECORDS SUMMARY | ~2019-10-17 | XMS | Encounter Summary ---
Demographics + + + | Address | [address] | | | [place] [address] | + + + | Home Phone [...] Providers + +------+ + | Care Pigment Weigher Name | Role | Phone | [...] as of this encounter Progress Notes Interface, Metal Pourer In - 06/23/2006 2:36 AM PST [id number] GEOVANNI SKELTON Molly [id number] Clinic Date: 05/05/2006 Clinic: Endocrinology Subjective: Belinda [...] replacement. Beto Meeks M.D. PD / HS [id number] / [id number] / [id number] / cc: Pedrito Gutierrez M.D. [address] [facility] [place] [address] Joanna Arshad M.D. [facility] Electronically signed by Beto Meeks 06-20-2006 11:48:11 PM documented i n this encounter Plan of Treatment Not on filedocumented as of this encounter Visit Diagnoses Not on filedocumented in this encounter"
--- OUTSIDE RECORDS SUMMARY | ~2019-10-17 | XMS | Encounter Summary ---
Demographics + + + | Address | [address] | | | [place] [address] | + + + | Home Phone [...] Providers + +------+ + | Care Post Secondary Professional Name | Role | Phone | [...] of this encounter Progress Notes Interface, Meter Engineer In - 10/15/2005 2:06 AM PDT [id number] GEOVANNI Barnes Clinic Date: 09/18/2005 Clinic: Ms. [...] about a month. Chris Padgett M.D. / [id number] / [id number] / [id number] / [id number] Electronically signed by Chris Padgett 10-14-2005 08:13:46 AM documented i n this encounter Plan of Treatment Not on filedocumented as of this encounter Visit Diagnoses Not on filedocumented in this encounter"
--- OUTSIDE RECORDS SUMMARY | ~2019-10-17 | XMS | Encounter Summary ---
Demographics + + + | Address | [address] | | | [place] [address] | + + + | Home Phone [...] Providers + +------+ + | Care Product Lead Name | Role | Phone | [...] | | | | [place] | [place] [address] | IDIOPATHIC; Lumbar | | | | [address] | [phone] | radiculopathy | | | | [phone] | | primarily right; S/P | | [...] blood sugars if you a re diabetic. continuous churn buttermaker risk can lead to osteoporosis which is [...] were performed by a Dr. García in [place]. The patient is unable to take NSAID's [...] visit. ALLERGIES: Allergies Allergen Reactions Amitriptyline Hcl Nqvlbmvzgr-Hesu-Gluqtemg Cephalexin Ciprofloxacin Clarithromycin Clindamycin Hcl Codeine Sulfate [...] has no apparent deficits with short or usp memory. She has appropriate fund of knowledge [...] PT (multiple sessions over the years) and nursing care attendant. Unfortunately she nelly nues to have significant [...] she is starting physical therapy again in [place]. 5. I will see the patient 2 [...] | | | | | [place] [address] | | | | | | [phone] | | | | | | | | +--------+---------+ + + + | 12/20/ | Office | Audiology | Elisabet Munson MS | | | 2019 | Visit | | [facility] [address] | | | | | [address] [place] [address] [place] | | | | | | [place] [address] | | | | | | [phone] | | | | | | | | +--------+---------+ + + + | 12/20/ | Office | Otolaryngology | Ulysses Genao MD | | | 2019 | Visit | | [address] [place] | | | | | | [address] [place], | | | | | | [place] [address] | | | | | | [phone] | | | | | | | [...] fluoroscopy suite for fluoroscopically guided bilateral sacroiliac [facility] | | joint steroid injections as [...] + | Performing | Address | City/State[facility] | Phone Number | | Organization | | | | + + + + + | [facility] | [address] | [place], [place] | [phone] | | [facility] | | [address] | | | - IMAGING | | [...] fluoroscopy suite for fluoroscopically guided bilateral sacroiliac [facility] | | joint steroid injections as [...] | + + + + + | [facility] | [address] | [place] | [phone] | | [facility] | | [address] | | | - IMAGING | | [...]
--- OUTSIDE RECORDS SUMMARY | ~2019-10-17 | XMS | Encounter Summary ---
Demographics + + + | Address | [address] | | | [place] [address] | + + + | Home Phone [...] Providers + +------+ + | Care Film Reproducer Name | Role | Phone | + [...] this encounter Progress Notes Interface, Manager Of Data In - 12/25/2005 2:07 AM PDT [id number] GEOVANNI Barnes [id number] Clinic Date: 12/05/2005 Clinic: General Surgery Clinic PHONE CONSULTATION Subjective: Belinda Meehan has been under our care with a history of gastric bypass and recurrent abdominal pain, nondiagnostic on multiple tests. She was requesting a prescription for oxycodone which will be sent to her home at [address] [place] [address]. Oxycodone 5 mg, 5 to 10 p.o. [...] Padgett in clinic. Melisa Thorne / SHARIF [id number] / [id number] / [id number] / [id number] Electronically signed by Kenisha Melton 12-24-2005 01:41:04 PM documented i n this encounter Plan of Treatment Not on filedocumented as of this encounter Visit Diagnoses Not on filedocumented in this encounter"
--- OUTSIDE RECORDS SUMMARY | ~2019-10-17 | XMS | Encounter Summary ---
Demographics + + + | Address | [address] | | | [place] [address] | + + + | Home Phone [...] Providers + +------+ + | Care Pulp Grinder And Blender Name | Role | Phone | [...] Pavilion | | | | | | [place], [place] | | | | | | [address] | | | | | | [phone] | | | +--------+ + + + [...]
--- OUTSIDE RECORDS SUMMARY | ~2019-10-17 | XMS | Encounter Summary ---
Demographics + + + | Address | [address] | | | [place] [address] | + + + | Home Phone [...] Providers + +------+ + | Care Care Aid Name | Role | Phone | [...] | | | Clinical Nutrition | [place], [place] | | | | | [address] | [address] | | | | | Loop Mailcode: OPC5 | [phone] | | | | | Outpatient Clinic | | | | | | [facility] | | | | | | [place] [address] | | | | | | [phone] | | | +--------+ + + + [...] + + + + + | [facility] | [address] | [place] [address] | | | LABORATORY | | | [...] | pg/mL | | | | | [facility] | | | | | | Laboratory. | | | | + + + + + + + + | Specimen | + + | | + + + + + + + | Performing | Address | City/State/Zipcode | Phone Number | | Organization | | | | + + + + + | [facility] | [address] | [place] [address] | | | LABORATORY | | | [...] + + | [facility] DEPARTMENT OF | [address] | [place] [address] | | | PATHOLOGY | [address] | | | + + + + + | [facility] DEPARTMENT OF | [address] | [place] [address] | | | PATHOLOGY | [address] [...] [facility] DEPARTMENT OF | [address] | [place] [address] | | | PATHOLOGY | [address] | | | + + + + + | [facility] DEPARTMENT OF | [address] | [place] [address] | | | PATHOLOGY | [address] | | | + + + + + documented in this encounter Visit Diagnoses Not on filedocumented in this encounter"
--- OUTSIDE RECORDS SUMMARY | ~2019-10-17 | XMS | Encounter Summary ---
[...] Providers + +------+ + | Care Manager Hospice Name | Role | Phone | [...] [id number] | | | | | | [place], [place] | | | | | | [address] | | | | | | [phone] | | | +--------+ + + + [...]
--- OUTSIDE RECORDS SUMMARY | ~2019-10-17 | XMS | Encounter Summary ---
Demographics + + + | Address | [address] | | | [place] [address] | + + + | Home Phone [...] Providers + +------+ + | Care Shot Core Drill Operator Helper Name | Role | Phone [...] | Pain | Diagnoses | Miracle, | Forrest, | | | | Management | LBP (low | NIHARIKA Jean | Lukasz Rhodes, PhD | | | | | back pain) | [address] | [address] | | | | | DJD | [address] | Ave | | | | | (degenerativ | [place] | | | | | e joint | [address] | [address] | | | | | disease) of | | Phone: | | | | | knee Knee | | [phone] | | | | | pain Major | | Fax: | | | | | depressive | | [phone] | | | | | disorder, | [...] 03/03/ | Office | [facility] | Lukasz Charles, | Major Depressive | | 2007 | Visit | [address] | PhD [address] | Disorder, Recurrent | | | | Mailcode: [facility] | [place], [place] | Episode, Moderate | | | | [facility] | [address] | ([facility]); LBP (Low Back | | | | and Healing, | [phone] | Pain); Bilateral | | | | | | Knee Pain; | | | | Floor [place], [place] | | Fibromyalgia | | | | [address] | | syndrome 729.1; | | | | [phone] | | Adjustment Disorder | | | [...] seems to be doing good self-care. Diagnosis: Wheaton I: 1. (296.32) Major depressive disorder, recurrent, moderate. 2. (309.24) Adjustment disorder with anxiety. 3. 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 Wheaton II: Deferred Wheaton III: abdominal pain, migraine headache, low back pain. Wheaton IV: low finances Wheaton V: GAF 55-60 Plan: return with next medical follow-up appointment. Check mood, pain, relaxation, activ ity, distraction, eating. Continue cognitive/behavioral therapy. Total time spent with patient was approximately 45 minutes. LUKASZ CHARLES PHD [facility] [address] [facility], 4th [place] [address] documented in this encount er Plan of Treatment + + +--------+ + + | Name | Type | Priori | Associated Diagnoses | Order Schedule | | | | ty | | | + + +--------+ + + | [facility], | Procedures | Routin | Major Depressive | Ordered: 03/03/2008 | | OFFICE (65-57) | | e | Disorder, Recurrent | [...]
--- OUTSIDE RECORDS SUMMARY | ~2019-10-17 | XMS | Encounter Summary ---
Demographics + + + | Address | [address] | | | [place] [address] | + + + | Home Phone [...] Providers + +------+ + | Care Post Exchange Manager Name | Role | Phone | [...] [address] | | | | | | [place], [place] | | | | | | [address] | | | | | | [phone] | | | +--------+ + + + [...] [facility] DE[facility] | [address] | [place] [address] | | | PATHOLOGY | [address] | | | + + + + + | [facility] DEPARTMENT | [address] | [place] [address] | | | PATHOLOGY | [address] | | | + + + + + PROTHROMBIN TIME (03/10/2006 2:42 PM PDT) + + + + + + | Component | Value | Ref Range | Performed | Pathologist | | | | | At | Signature | + + + + + + | INR | 1.01Comment: | 0.90 - 1.20 INR | [facility] | | | | PT INR [...] + + | [facility] | [address] [place] [address] | [place] [address] | | | PATHOLOGY | [address] | | | + + + + + | [facility] | [address] [facility] | [place] [address] | | | PATHOLOGY | [address] [...] OF | [address] | [place] [address] | | | PATHOLOGY | [address] | | | + + + + + | [facility] DEPARTMENT OF | [address] | [place] [address] | | | PATHOLOGY | [address] [...] [facility] DEPARTMENT | [address] | [place] [address] | | | PATHOLOGY | [address] | | | + + + + + | [facility] | [address] | [place] [address] | | | PATHOLOGY | [address] [...] + + + | [facility] | [address] | [place] [address] | | | LABORATORY | | | [...] | | | | | performed at [place] | | | | | | [facility] [...] + + + | [facility] | [address] | [place] [address] | | | LABORATORY | | | | + + + + + documented in this encounter Visit Diagnoses + + | Diagnosis | + + | Chronic abdominal pain Abdominal pain, unspecified site | + + | Iron deficiency Other disorders of iron metabolism | + + documented in this encounter"
--- OUTSIDE RECORDS SUMMARY | ~2019-10-17 | XMS | Encounter Summary ---
Demographics + + + | Address | [address] | | | [place] [address] | + + + | Home Phone [...] Providers + +------+ + | Care Clinical Safety Manager Name | Role | Phone [...] of this encounter Progress Notes Interface, Business Developer In - 03/26/2006 1:05 AM [facility] [place] [address] [place], [place] [address] or February 22, 2001 Pedrito Gutierrez M.D. [facility] [address] [place] [address] RE: BELINDA MEEHAN MR #: [id number] Dear [...] regarding this patient. Sincerely, Issac Meeks M.D. solderer furnace Division of Endocrinology, Diabetes, and Clinical Color Television Console Monitor, Metabolic Disorders Clinic PBD / HS [id number] / [id number] / [id number] / [id number] signed by Interface, Business Developer In at 03/26/2006 1:05 AM PDTdocume nted in this encounter Plan of Treatment Not on filedocumented as of this encounter Visit Diagnoses Not on filedocumented in this encounter
--- OUTSIDE RECORDS SUMMARY | ~2019-10-17 | XMS | Encounter Summary ---
Demographics + + + | Address | [address] | | | [place] [address] | + + + | Home Phone [...] Providers + +------+ + | Care Concrete Placement Equipment Operator Name | Role | Phone [...] | | Order | Loop Physician's | [place], [place] | | | | | Sharmila, [facility] floor | [address] | | | | | [place], [place] | [phone] | | | | | [address] | | | | | | [phone] | | | +--------+ + + + [...]
--- OUTSIDE RECORDS SUMMARY | ~2019-10-17 | XMS | Encounter Summary ---
Demographics + + + | Address | [address] | | | [place] [address] | + + + | Home Phone [...] Providers + +------+ + | Care Power Tool Repairer Name | Role | Phone | [...] | Office | 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 Overall she has made some good changes. [...] natalie ing an effort to improve. Diagnosis: Dobbins I: 1. (296.32) Major depressive disorder, recurrent, moderate. 2. (309.24) Adjustment disorder with anxiety. 3. 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 Dobbins II: Deferred Dobbins III: abdominal pain, migraine headache, low back pain. Dobbins IV: low finances Dobbins V: GAF 50 Plan: Return in 2 weeks. Check pacing, relaxation, activity, distraction. Check managing Pain.. . book. Continue cognitive/behavioral therapy. Total time spent with patient was approximately 45 minutes. LUKASZ CHARLES PHD [facility] [address] [place] [address] [facility] [address] [place] [address] documented in this encount er Plan of [...] | Major depressive disorder, recurrent episode, moderate ([facility]) Major depressive | | disorder, recurrent episode, [...]
--- OUTSIDE RECORDS SUMMARY | ~2019-10-17 | XMS | Encounter Summary ---
Demographics + + + | Address | [address] | | | [place] [address] | + + + | Home Phone [...] Team Providers + +------+ + | Care Vendor Management Specialist Name | Role | Phone [...] | | | | | [address] [facility] | | | | | | [place], [place] | | | | | | [address] | | | | | | [phone] | | | +--------+ + + + [...] | | | | | [place] [address] | | | | | | [phone] | | | | | | | | +--------+---------+ + + + | 12/20/ | Office | Audiology | Elisabet Munson MS | | | 2019 | Visit | | [facility] [address] | | | | [address] [place] | | | | | | [place] [address] | | | | | | [phone] | | | | | | | | +--------+---------+ + + + | 12/20/ | Office | Otolaryngology | Ulysses Genao MD | | | 2019 | Visit | | [address] | | | | | | [address] [place], | | | | | | [place] [address] | | | | | | [phone] | | | | | | | | +--------+---------+ + + + documented as of this encounter Visit Diagnoses Not on filedocumented in this encounter"
--- OUTSIDE RECORDS SUMMARY | ~2019-10-17 | XMS | Encounter Summary ---
Demographics + + + | Address | [address] | | | [place] [address] | + + + | Home Phone [...] + + | 02/01/ | Telephone | [facility] | Alanis, | Other (B12 shot) | | 2017 | | MEDICINE [address] [place] [address] | MD Petrona | | | | | [facility] | [address] [place] [address] | | | | | [place] [address] | [place] [address] | | | | | [phone] | [phone] | | | | | | | [...] | | | | | [place] [address] | | | | | | [phone] | | | | | | | | +--------+---------+ + + + | 12/20/ | Office | Audiology | Elisabet Munson MS | | | 2019 | Visit | | [facility] [address] | | | | | [address] [place] | | | | | | [place] [address] | | | | | | [phone] | | | | | | | | +--------+---------+ + + + | 12/20/ | Office | Otolaryngology | Ulysses Genao MD | | | 2020 | Visit | | [address] | | | | | | [address] [place], | | | | | | [place] [address] | | | | | | [phone] | | | | | | | | +--------+---------+ + + + documented as of this encounter Visit Diagnoses Not on filedocumented in this encounter"
--- OUTSIDE RECORDS SUMMARY | ~2019-10-17 | XMS | Encounter Summary ---
Demographics + + + | Address | [address] | | | [place] [address] | + + + | Home Phone [...] Providers + +------+ + | Care Fashion Model Name | Role | Phone | [...] + + | 05/28/ | Office | [facility] | Delfina Molina, | [...] Migraine Headache; | | | | Floor [place], [place] | | Herniated Lumbar | | | | [address] | | Intervertebral Disc | | | | [phone] | | L4-5; Fibromyalgia | | | [...] 12 hours Follow up with Dr. Brenda SHEEAHN For ongoing prescribing and management of leg swelling jane gill. documented in this encounter Progress Notes Delfina Molina - 05/28/2007 11:00 AM PSTFormatting of this note might be different from lesli gomez. 05/28/2007 Belinda Meehan is a 47 y.o. female [facility] Pain Center Return Visit [...] I would like to discuss with Dr Chenhco SHEEHAN facilitating PRN opioid therapy I called [...] and lab results. 6. [facility] physical re[facility]. 7. Schedule follow up in one month or sooner if needed - The pateint was asked to call the clinic with any concerns or questions. DELFINA MOLINA [facility] Mail code CH 4P [facility] [address] [place] [address] asha Nolasco - 05/28/2007 10:01 AM [...] of 103.2 she was seen here at [facility] today the temp is 100.2 3. [...]
--- OUTSIDE RECORDS SUMMARY | ~2019-10-17 | XMS | Encounter Summary ---
[...] Providers + +------+ + | Care Guest Relations Manager Name | Role | Phone | [...] [address] | | | | | | [place], [place] | | | | | | [address] | | | | | | [phone] | | | +--------+--------+ + + + [...]
--- OUTSIDE RECORDS SUMMARY | ~2019-10-17 | XMS | Encounter Summary ---
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 Continue with Ford 10/325 1 tablet three times per day [...] Belinda Meehan is a 46 y.o. female [facility] Comprehensive [...] 72 hours on schedule 2. Continue with Ford 10/325 1 tablet three times per day as needed for increased pain wit h activity. 3. Continue with Trileptal 150mg, 1 tablet twice a day 4. Continue with PT and psychology as scheduled 5. Follow up with Delfina Molina in 4 weeks or sooner if needed. 6. Continue with orthopedic and neurology evaluations as scheduled DELFINA MOLINA [facility] Comprehensive Pain Center Mail code CH 4P [facility] and [address] [address] Ty Omalley - 9:28 AM [...] Yes , Fentanyl patch documented in this [facility] Plan of Treatment Not on filedocumented [...]
--- OUTSIDE RECORDS SUMMARY | ~2019-10-17 | XMS | Encounter Summary ---
Demographics + + + | Address | [address] | | | [place] [address] | + + + | Home Phone [...] Organization | [facility] | | | [...] Providers + +------+ + | Care Engineering Aide Name | Role | Phone | [...] + + | 04/06/ | Telephone | [facility] | Alanis, | Care Coordination | | 2017 | | MEDICINE [address] [place] [address] | MD Petrona | | | | | [facility] | [address] [place] [address] | | | | | [place] [address] | [place] [address] | | | | | [phone] | [phone] | | | | | | | [...] | | | | | [address] [facility] | | | | | | [place] [address] | | | | | | [phone] | | | | | | | | +--------+---------+ + + + | 12/20/ | Office | Audiology | Elisabet Munson MS | | | 2019 | Visit | | [facility]3][address] | | | | | | [address] | | | | | | [place] [address] | | | | | | [phone] | | | | | | | | +--------+---------+ + + + | 12/20/ | Office | Otolaryngology | Ulysses Genao MD | | | 2020 | Visit | | [address] [facility] | | | | | | [address] [place], | | | | | | [place] [address] | | | | | | [phone] | | | | | | | | +--------+---------+ + + + documented as of this encounter Visit Diagnoses Not on filedocumented in this encounter"
--- OUTSIDE RECORDS SUMMARY | ~2019-10-17 | XMS | Encounter Summary ---
Demographics + + + | Address | [address] | | | [place] [address] | + + + | Home Phone [...] Providers + +------+ + | Care Manager Integrity Name | Role | Phone | + [...] + + | 06/30/ | Telephone | [facility] | Alanis, | Other | | 2019 | | MEDICINE [address] [place] [address] | MD Petrona | | | | | [facility] | [address] [place] [address] | | | | | [place] [address] | [place] [address] | | | | | [phone] | [phone] | | | | | | | [...] | | | [facility] [address] | | | | | | [place] [address] | | | | | | [phone] | | | | | | | | +--------+---------+ + + + | 12/20/ | Office | Audiology | Elisabet Munson MS | | | 2019 | Visit | | [facility] [address] | | | | | | [place] [address] [place] | | | | | | [place] [address] | | | | | | [phone] | | | | | | | | +--------+---------+ + + + | 12/20/ | Office | Otolaryngology | Ulysses Genao MD | | | 2019 | Visit | | [address] [facility] | | | | | | [address] [place], | | | | | | [place] [address] | | | | | | [phone] | | | | | | | [...]
--- OUTSIDE RECORDS SUMMARY | ~2019-10-17 | XMS | Encounter Summary ---
Demographics + + + | Address | [address] | | | [place] [address] | + + + | Home Phone [...] Providers + +------+ + | Care Technology Solutions Architect Name | Role | Phone [...] as of this encounter Progress Notes Interface, Residential Remodeling Subcontractor In - 01/03/2006 3:02 AM [facility] [place] [address] [place], [place] [address] or November 01, 2002 Pedrito Gutierrez M.D. [facility] [address] [place] [address] RE: BELINDA MEEHAN MR #: [id number] Dear Dr. Gutierrez: Belinda was seen in [...] referred for bariatric surgery here at [facility]. We have several physicians who perform the [...] Sincerely, Maurilio Estrada M.D. KRIS / SHARIF [id number] / [id number] / [id number] / Tdocumented in this encounter Plan of Treatment Not on filedocumented as of this encounter Visit Diagnoses Not on filedocumented in this encounter"
--- OUTSIDE RECORDS SUMMARY | ~2019-10-17 | XMS | Encounter Summary ---
Demographics + + + | Address | [address] | | | [place] [address] | + + + | Home Phone [...] Providers + +------+ + | Care Staff Technologist Name | Role | Phone | [...] + + | 01/31/ | Telephone | [facility] | Alanis, | Foot Pain | | 2019 | | MEDICINE [address] [place] [address] | MD Petrona | | | | | [facility] | [address] [place] [address] | | | | | [place] [address] | [place] [address] | | | | | [phone] | [phone] | | | | | | | [...] | | | | | [place] [address] | | | | | | [phone] | | | | | | | | +--------+---------+ + + + | 12/20/ | Office | Audiology | Elisabet Munson MS | | | 2019 | Visit | | [facility] [address] | | | | | | [place] [address] [place] | | | | | | [place] [address] | | | | | | [phone] | | | | | | | | +--------+---------+ + + + | 12/20/ | Office | Otolaryngology | Ulysses Genao MD | | | 2020 | Visit | | [address] [facility] | | | | | | [address] [place], | | | | | | [place] [address] | | | | | | [phone] | | | | | | | | +--------+---------+ + + + documented as of this encounter Visit Diagnoses Not on filedocumented in this encounter"
--- OUTSIDE RECORDS SUMMARY | ~2019-10-17 | XMS | Encounter Summary ---
Demographics + + + | Address | [address] | | | [place] [address] | + + + | Home Phone [...] Team Providers + +------+ + | Care Electroplater Automatic Name | Role | Phone | [...] + + | 09/01/ | Telephone | [facility] | Alanis, | Sinus Pain | | 2019 | | MEDICINE [address] [place] [address] | MD Petrona | | | | | [facility] | [address] [place] [address] | | | | | [place] [address] | [place] [address] | | | | | [phone] | [phone] | | | | | | | [...] | | | | | [place] [address] | | | | | | [phone] | | | | | | | | +--------+---------+ + + + | 12/20/ | Office | Audiology | Elisabet Munson MS | | | 2020 | Visit | | [facility] [address] | | | | | [address] [place] [address] [place] | | | | | | [place] [address] | | | | | | [phone] | | | | | | | | +--------+---------+ + + + | 12/20/ | Office | Otolaryngology | Ulysses Genao MD | | | 2020 | Visit | | [address] | | | | | | [address] [place], | | | | | | [place] [address] | | | | | | [phone] | | | | | | | | +--------+---------+ + + + documented as of this encounter Visit Diagnoses Not on filedocumented in this encounter"
--- OUTSIDE RECORDS SUMMARY | ~2019-10-17 | XMS | Encounter Summary ---
Demographics + + + | Address | [address] | | | [place] [address] | + + + | Home Phone [...] Providers + +------+ + | Care Java Development Manager Name | Role | Phone [...] | | | | Clinical Nutrition | [place], [place] | | | | | [address] | [address] | | | | | Loop Mailcode: OPC5 | [phone] | | | | | Outpatient Clinic | | | | | | [facility], | | | | | | [place] [address] | | | | | | [phone] | | | +--------+ + + + [...]
--- OUTSIDE RECORDS SUMMARY | ~2019-10-17 | XMS | Encounter Summary ---
Demographics + + + | Address | [address] | | | [place] [address] | + + + | Home Phone [...] Providers + +------+ + | Care Software Program Manager Name | Role | Phone [...]
--- OUTSIDE RECORDS SUMMARY | ~2019-10-17 | XMS | Encounter Summary ---
Demographics + + + | Address | [address] | | | [place] [address] | + + + | Home Phone [...] Team Providers + +------+ + | Care De Alcholizer Name | Role | Phone | + [...] | [address] | [place], [place] | | | | | [place], [place] | [address] | | | | | [address] | | | | | | [phone] | | | +--------+ + + + [...] | | | | | | [place] [address] | | | | | | [phone] | | | | | | | | +--------+---------+ + + + | 12/20/ | Office | Audiology | Elisabet Munson MS | | | 2019 | Visit | | [facility] [address] | | | | [address] [place] | | | | | | [place] [address] | | | | | | [phone] | | | | | | | | +--------+---------+ + + + | 12/20/ | Office | Otolaryngology | Ulysses Genao MD | | | 2019 | Visit | | [address] | | | | | | [address] [place], | | | | | | [place] [address] | | | | | | [phone] | | | | | | | | +--------+---------+ + + + documented as of this encounter Visit Diagnoses Not on filedocumented in this encounter"
--- OUTSIDE RECORDS SUMMARY | ~2019-10-17 | XMS | Encounter Summary ---
Demographics + + + | Address | [address] | | | [place] [address] | + + + | Home Phone [...] Team Providers + +------+ + | Care Liquid Sugar Melter Name | Role | Phone | [...] + | 04/09/ | Refill | [facility] | Alanis, | Medication Refill | | 2017 | | MEDICINE [place] | MD Petrona | | | | | [address] | [address] [facility] | | | | | [place] | [facility] [address] | | | | | [address] | [phone] | | | | | [phone] | | | +--------+--------+ + + + [...] | | | | | [address] [facility] | | | | | | [place] [address] | | | | | | [phone] | | | | | | | | +--------+---------+ + + + | 12/20/ | Office | Audiology | Elisabet Munson MS | | | 2019 | Visit | | [facility] [address] | | | | | | [address] | | | | | | [place] [address] | | | | | | [phone] | | | | | | | | +--------+---------+ + + + | 12/20/ | Office | Otolaryngology | Ulysses Genao MD | | | 2020 | Visit | | [address] | | | | | | [address] [place], | | | | | | [place] [address] | | | | | | [phone] | | | | | | | | +--------+---------+ + + + documented as of this encounter Visit Diagnoses Not on filedocumented in this encounter"
--- OUTSIDE RECORDS SUMMARY | ~2019-10-17 | XMS | Encounter Summary ---
Demographics + + + | Address | [address] | | | [place] [address] | + + + | Home Phone [...] Team Providers + +------+ + | Care Prepared Foods Production Team Member Name | Role | Phone [...] | | | [facility] | [place], [place] | | | | | [address] | [address] | | | | | [address] | [phone] | | | | | [facility] | | | | | | Physician's | | | | | | Pavilion [place], | | | | | | [place] [address] | | | | | | [phone] | | | +--------+ + + + [...]
--- OUTSIDE RECORDS SUMMARY | ~2019-10-17 | XMS | Encounter Summary ---
Demographics + + + | Address | [address] | | | [place] [address] | + + + | Home Phone [...] Providers + +------+ + | Care Railroad Supervisor Of Engines Name | Role | Phone | + [...] + + | 06/17/ | Office | [facility] | Emmy-Kamlesh, | Migraine without | | 2019 | Visit | MEDICINE [address] [place] [address] | MD Petrona | aura and without | | | | Street [place] | [address] [place] [address] | status migrainosus, | | | | [place] [address] | [place] [address] | not intractable | | | | [phone] | [phone] | (Primary Dx); | | | | [...] her lower extremities. [facility] showing chronic d egenerative changes and disc bulges in her lower back with no significant stenosis or other acute indications for neurosurgery. Findings were similar to a previous MRI from a few year s ago. She did have back surgery in [facility] on a number of years ago. She [...] COPD (chronic obstructive pulmonary disease) ([facility]) Depression Diarrhea Dumping syndrome Fall at home Fatigue fracture of vertebra Fibromyalgia Full dentures GERD (gastroesophageal reflux disease) Glaucoma Hyperparathyroidism ([facility]) Hypothyroidism IBS (irritable bowel syndrome) Idiopathic scoliosis Leg edema Low back pain Lumbar postlaminectomy syndrome Lumbar radiculopathy primarily right 01/04/2015 Meniere syndrome Migraine with aura Migraines Muscle cramping Muscle spasm Myalgia Nonalcoholic hepatosteatosis Obesity Opioid dependence ([facility]) Orthostatic hypotension OLIVER (obstructive sleep apnea) Osteoarthritis, generalized Osteopenia Osteoporosis Peripheral neuropathy Rheumatoid arthritis ([facility]) Right arm pain 01/04/2015 RLS (restless legs [...] Procedure: COLONOSCOPY; Surgeon: Luther Brito MD; Location: [facility] MEDICAL PROCEDURE UNIT DILATION AND CURETTAGE OF UTERUS ELBOW SURGERY FINGER TRIGGER RELEASE 2002 FINGER TRIGGER RELEASE 2009 GASTRIC BYPASS SURGERY 2004 HYSTERECTOMY 05/14/1980 JOINT REPLACEMENT Bilateral 2006 2007 KNEE ARTHROSCOPY 2005 LAPAROSCOPY 01/27/2015 LAPAROTOMY 2008 ROTATOR CUFF REPAIR 2005 SPINE SURGERY TONSILLECTOMY 1964 UPPER GASTROINTESTINAL ENDOSCOPY N/A 12/18/2017 Procedure: EGD; Surgeon: Luther Brito MD; Location: [facility] MEDICAL PROCEDURE UNIT CURRENT MEDICATIONS [...] (See Comments) Confused and questionable for seizures Qbchgtlroo-Ygmd-Luqmaxmf Hives and Rash Cephalexin Hives Ciprofloxacin Hives [...] - We'll refer for physical therapy in [place], including aquatic therapy. FOLLOW-UP Return in about 3 months (around 09/15/2018). Note: Parts of this documentwere created using Dragon speech recognition software. As a r esult, there may be unintended word spelling errors. Every attempt was made to correct the dictation. Shanta Trevino Postal Clerk - 06/17/2018 10:45 AM PSTFormatting of this note might be diff erent from the original. Administrations This Visit cyanocobalamin (VITAMIN B-12) injection 1,000 mcg Admin Date 06/17/2018 Action Given Dose 1000 mcg Route Intramuscular Administered By Shanta Whaley Postal Clerk Pt tolerated B-12 injection well. documented in [...] | | | | | [place] [address] | | | | | | [phone] | | | | | | | | +--------+---------+ + + + | 12/20/ | Office | Audiology | Elisabet Munson MS | | | 2019 | Visit | | [facility] [address] | | | | | [address] [place] | | | | | | [place] [address] | | | | | | [phone] | | | | | | | | +--------+---------+ + + + | 12/20/ | Office | Otolaryngology | Ulysses Genao MD | | | 2019 | Visit | | [address] | | | | | | [address] [place], | | | | | | [place] [address] | | | | | | [phone] | | | | | | | [...]
--- OUTSIDE RECORDS SUMMARY | ~2019-10-17 | XMS | Encounter Summary ---
Demographics + + + | Address | [address] | | | [place] [address] | + + + | Home Phone [...] Providers + +------+ + | Care Case Assistant Name | Role | Phone | [...] | back pain | [place], | [address] | | | | | with | [place] | Phone: | | | | | bilateral | [address] | [phone] | | | | | sciatica | Phone: | Fax: | | | | | Procedures | [phone] | [phone] | | | | | MRI Lumbar | Fax: | | | | | | Spine wo | [phone] | | | | | | Contrast [...] + + | 05/17/ | Office | [facility] | Emmy-Kamlesh, | Lumbar | | 2018 | Visit | MEDICINE [address] [place] [address] | MD Petrona | radiculopathy, acute | | | | Street [place] | [address] [place] [address] | (Primary Dx); Acute | | | | [place] [address] | [place] [address] | midline low back | | | | [phone] | [phone] | pain with bilateral | | | [...] COPD (chronic obstructive pulmonary disease) ([facility]) Depression Diarrhea Dumping syndrome Fall at home Fatigue fracture of vertebra Fibromyalgia Full dentures GERD (gastroesophageal reflux disease) Glaucoma Hyperparathyroidism ([facility]) Hypothyroidism IBS (irritable bowel syndrome) Idiopathic scoliosis [...] Procedure: COLONOSCOPY; Surgeon: Luther Brito MD; Location: [facility] MEDICAL PROCEDURE UNIT DILATION AND CURETTAGE OF UTERUS ELBOW SURGERY FINGER TRIGGER RELEASE 2002 FINGER TRIGGER RELEASE 2010 GASTRIC BYPASS SURGERY 2004 HYSTERECTOMY 05/14/1980 JOINT REPLACEMENT Bilateral 2007 2008 KNEE ARTHROSCOPY 2005 LAPAROSCOPY 01/27/2015 LAPAROTOMY 2008 ROTATOR CUFF REPAIR 2005 SPINE SURGERY TONSILLECTOMY 1964 UPPER GASTROINTESTINAL ENDOSCOPY N/A 12/18/2017 Procedure: EGD; Surgeon: Luther Brito MD; Location: [facility] MEDICAL PROCEDURE UNIT CURRENT MEDICATIONS Current [...] ours as needed for Pain. Incontinence Supplies [facility] As directed 100 each [...] (See Comments) Confused and questionable for seizures Sbhlmqpkur-Aaty-Xjbagbhe Hives and Rash Cephalexin Hives Ciprofloxacin Hives [...] Note: Parts of this documentwere created using [employer] speech recognition software. As a r esult, [...] | | | | | [place] [address] | | | | | | [phone] | | | | | | | | +--------+---------+ + + + | 12/20/ | Office | Audiology | Elisabet Munson MS | | | 2019 | Visit | | [facility] [address] | | | | | | [address] [place] [address] [place] | | | | | | [place] [address] | | | | | | [phone] | | | | | | | | +--------+---------+ + + + | 12/20/ | Office | Otolaryngology | Ulysses Genao MD | | | 2020 | Visit | | [address] | | | | | | [address] [place], | | | | | | [place] [address] | | | | | | [phone] | | | | | | | [...]
--- OUTSIDE RECORDS SUMMARY | ~2019-10-17 | XMS | Encounter Summary ---
Demographics + + + | Address | [address] | | | [place] [address] | + + + | Home Phone [...] Providers + +------+ + | Care Airport Planner Name | Role | Phone | [...] | Discussion | | 2007 | | [facility] & | MD | | | | | Healing Radha[address] | | | | | | Bethanie Mailcode: CH8C | | | | | | [facility] | | | | | | and Healing, | | | | | | Building | | | | | | Floor [place], [place] | | | | | | [address] | | | | | | [phone] | | | +--------+ + + + [...]
--- OUTSIDE RECORDS SUMMARY | ~2019-10-17 | XMS | Encounter Summary ---
Demographics + + + | Address | [address] | | | [place] [address] | + + + | Home Phone [...] Team Providers + +------+ + | Care Continuing Education Director Name | Role | Phone [...] + + | 03/27/ | Telephone | [facility] | Alanis, | Hip Pain | | 2016 | | MEDICINE [address] [place] [address] | MD Petrona | | | | | [facility] | [address] [place] [address] | | | | | [place] [address] | [place] [address] | | | | | [phone] | [phone] | | | | | | | [...] | | | | | [place] [address] | | | | | | [phone] | | | | | | | | +--------+---------+ + + + | 12/20/ | Office | Audiology | Elisabet Munson MS | | | 2019 | Visit | | [facility] [address] | | | | | | [place] [address] [place] | | | | | | [place] [address] | | | | | | [phone] | | | | | | | | +--------+---------+ + + + | 12/20/ | Office | Otolaryngology | Ulysses Genao MD | | | 2020 | Visit | | [address] [place] | | | | | | [address] [place], | | | | | | [place] [address] | | | | | | [phone] | | | | | | | [...]
--- OUTSIDE RECORDS SUMMARY | ~2019-10-17 | XMS | Encounter Summary ---
Demographics + + + | Address | [address] | | | [place] [address] | + + + | Home Phone [...] Team Providers + +------+ + | Care Screw Machine Operator Name | Role | Phone [...] as of this encounter Progress Notes Interface, Work Adjustment Instructor In - 01/12/2006 1:16 AM PDTCLINIC DATE: 05/24/2002 NEUROMUSCULAR CLINIC [facility] CARE PROVIDER: Pedrito Gutierrez M.D., [place], [place]. REFERRING PROVIDER : Issac Meeks M.D., [facility] Endocrinology. REASON FOR CONSULTATION: Dr. Meeks recently [...] has some mild associated weakness in her director of partnerships. She was told she had carpal tunnel [...] use drugs. 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 She is applying for disability compensation. She lives in [facility] and is currently undergoing a divorce. REVIEW [...] position sense throughout. Coordination: Fine finger movements, tndtdz-hp-dptx, rapid alternating movements, and oiqk-ih-wbqo maneuvers are intact though wtgfaa-yg-ueit is limited by poor depth perception due [...] Pete M.D. Neurology/Neuromuscular Fellow TBBuzz / HS [id number] / [id number] / [id number] / cc: Issac Meeks M.D. [facility] Endocrinology Pedrito Gutierrez M.D. [address] [place] [id number] signed by Interface, Work Adjustment Instructor In at 01/12/2006 1:1 6 AM PDTdocumented in this encounter Plan of Treatment Not on filedocumented as of this encounter Visit Diagnoses Not on filedocumented in this encounter
--- OUTSIDE RECORDS SUMMARY | ~2019-10-17 | XMS | Encounter Summary ---
Demographics + + + | Address | [address] | | | [place] [address] | + + + | Home Phone [...] Providers + +------+ + | Care Tower Equipment Installer Name | Role | Phone [...] as of this encounter Progress Notes Interface, Community Organizer In - 02/15/2006 2:03 AM PDT [id number] GEOVANNI [place] Molly [id number] Clinic Date: 10/23/2005 Clinic: Endocrinology Subjective: Belinda [...] her back on October 06, 2005, in [place], [place]. This study showed a moderate central disk bulge at L4-L5 consistent with a herniated nucleus pulposus. There has been some discussion by her physicians in [place] about the possibility of giving her epidural [...] most recent laboratory studies were performed in [place] on July 02, 2005. At that time, [...] months. Beto Meeks M.D. PD / HS [id number] / [id number] / [id number] / cc: Joanna Arshad M.D. [address] [place] [address] Electronically signed by Beto Meeks 02-14-2006 02:02:42 AM documented i n this encounter Plan of Treatment Not on filedocumented as of this encounter Visit Diagnoses Not on filedocumented in this encounter"
--- OUTSIDE RECORDS SUMMARY | ~2019-10-17 | XMS | Encounter Summary ---
Demographics + + + | Address | [address] | | | [place] [address] | + + + | Home Phone [...] Team Providers + +------+ + | Care Asset Management Analyst Name | Role | Phone [...] 03/28/ | Refill | [facility] | Alanis, | Medication Refill | | 2016 | | MEDICINE [address] [place] [address] | MD Petrona | | | | | [facility] | [address] [address] | | | | | [place] [address] | [place] [address] | | | | | [phone] | [phone] | | | | | | | [...] | | | | | [place] [address] | | | | | | [phone] | | | | | | | | +--------+---------+ + + + | 12/20/ | Office | Audiology | Elisabet Munson MS | | | 2019 | Visit | | [facility] [address] | | | | | | [place] [address] [place] | | | | | | [place] [address] | | | | | | [phone] | | | | | | | | +--------+---------+ + + + | 12/20/ | Office | Otolaryngology | Ulysses Genao MD | | | 2020 | Visit | | [address] [facility] | | | | | | [address] [place], | | | | | | [place] [address] | | | | | | [phone] | | | | | | | | +--------+---------+ + + + documented as of this encounter Visit Diagnoses Not on filedocumented in this encounter"
--- OUTSIDE RECORDS SUMMARY | ~2019-10-17 | XMS | Encounter Summary ---
Demographics + + + | Address | [address] | | | [place] [address] | + + + | Home Phone [...] Providers + +------+ + | Care Business Assistant Name | Role | Phone | + +------+ + | Pedrito Gutierrez MD | PCP | | + +------+ + Encounter Details +--------+---------+ + + + | Date | Type | Department | Care Team | Description | +--------+---------+ + + + | 02/01/ | Office | Digestive Health | Chris Padgett, | Status Post | | 2006 | Visit | [place] [address] | [address] | Bariatric Surgery; | | | | Ave Mailcode: CH4S | [address] | Follow-Up | | | | [facility] | [place], [place] | Examination | | | | and Healing, | [address] | Following Surgery | | | | Building | [phone] | | | | | Floor [place], [place] | | | | | | [address] | | | | | | [phone] | | | +--------+---------+ + + + [...] history of intermittent abdominal pain [facility] 3 mo f/u evaluation with [...]
--- OUTSIDE RECORDS SUMMARY | ~2019-10-17 | XMS | Encounter Summary ---
Demographics + + + | Address | [address] | | | [place] [address] | + + + | Home Phone [...] + +------+ + | Care Child Adolescent Psychiatrist Name | Role | Phone | + +------+ + | Pedrito Gutierrez MD | PCP | | + +------+ + Encounter Details +--------+ + + + + | Date | Type | Department | Care Team | Description | +--------+ + + + + | 05/20/ | Telephone | Digestive Health | Rohan Foley MD | | | 2005 | | [place] [facility] [address] | | | | | | [address] | | | | | | Mailcode: Center | | | | | | for Health and | | | | | | [facility], [address] | | | | | | [place], [place] | | | | | | [address] | | | | | | [phone] | | | +--------+ + + + [...]
--- OUTSIDE RECORDS SUMMARY | ~2019-10-17 | XMS | Encounter Summary ---
Demographics + + + | Address | [address] | | | [place] [address] | + + + | Home Phone [...] Team Providers + +------+ + | Care Composing Room Supervisor Name | Role | Phone | + +------+ + | Pedrito Gutierrez MD | PCP | | + +------+ + Encounter Details +--------+ + + + + | Date | Type | Department | Care Team | Description | +--------+ + + + + | 12/26/ | Telephone | [facility] | Lukasz Ogden, | | | 2007 | | [facility] at | PhD [address] | | | | | [facility] | [place], [place] | | | | | [address] | [address] | | | | | Mailcode: [id number] | [phone] | | | | | [facility] | | | | | | and [place], | | | | | | Building | | | | | | [place], [place] | | | | | | [address] | | | | | | [phone] | | | +--------+ + + + [...]
--- OUTSIDE RECORDS SUMMARY | ~2019-10-17 | XMS | Encounter Summary ---
Demographics + + + | Address | [address] | | | [place] [address] | + + + | Home Phone [...] + +------+ + | Care Social Media Designer Name | Role | Phone | [...] + + | 10/07/ | Telephone | [facility] | Alanis, | Hip Pain | | 2017 | | MEDICINE [address] [place] [address] | MD [place]ron[place] | | | | | [facility] | [address] [place] [place] [address] | | | | | [place] [address] | [place] [address] | | | | | [phone] | [phone] | | | | | | | [...] | | | | | [place] [address] | | | | | | [phone] | | | | | | | | +--------+---------+ + + + | 12/20/ | Office | Audiology | Elisabet Munson MS | | | 2019 | Visit | | [facility] [address] | | | | | | [place] [address] [place] | | | | | | [place] [address] | | | | | | [phone] | | | | | | | | +--------+---------+ + + + | 12/20/ | Office | Otolaryngology | Ulysses Genao MD | | | 2020 | Visit | | [address] [facility] | | | | | | [address] [place], | | | | | | [place] [address] | | | | | | [phone] | | | | | | | | +--------+---------+ + + + documented as of this encounter Visit Diagnoses Not on filedocumented in this encounter"
--- OUTSIDE RECORDS SUMMARY | ~2019-10-17 | XMS | Encounter Summary ---
Demographics + + + | Address | [address] | | | [place] [address] | + + + | Home Phone [...] Team Providers + +------+ + | Care Wearing Apparel Folder Name | Role | Phone | [...] Rd | | | | | | [place], [place] | | | | | | [address] | | | +--------+ + + + [...] as of this encounter Progress Notes Interface, Agency Trainer In - 12/06/2006 2:32 AM PDT [id number] GEOVANNI [place] [id number] Clinic Date: 10/29/2006 Clinic: Endocrinology Subjective: Belinda [...] been working with the [facility] at [facility] to optimize her pain management. [...] patch 25 mcg for 72 hours. 2. [place]/acetaminophen 10 mg/325 mg, 1 every 6 hours [...] months. Beto Meeks M.D. PD / HS [id number] / [id number] / [id number] / [id number] cc: Pedrito Gutierrez M.D. [address] [address] Chris Padgett M.D. Electronically signed by Beto Meeks 12-05-2006 05:17:05 AM documented in this encounter Plan of Treatment Not on filedocumented as of this encounter Visit Diagnoses Not on filedocumented in this encounter"
--- OUTSIDE RECORDS SUMMARY | ~2019-10-17 | XMS | Encounter Summary ---
Demographics + + + | Address | [address] | | | [place] [address] | + + + | Home Phone [...] Team Providers + +------+ + | Care Oxygraph Operator Name | Role | Phone | + +------+ + | Sulaiman Carrera MD | PCP | | + +------+ + Encounter Details +--------+ + + + + | Date | Type | Department | Care Team | Description | +--------+ + + + + | 08/26/ | Ancillary | Registration [id number] | | | | 2006 | Registratio | [address] | | | | | n | [place] Mailcode: [id number] | | | | | | [place], [place] | | | | | | [address] | | | | | | [phone] | | | +--------+ + + + [...]
--- OUTSIDE RECORDS SUMMARY | ~2019-10-17 | XMS | Encounter Summary ---
[...] Team Providers + +------+ + | Care Boardinghouse Keeper Name | Role | Phone | [...] | | | | Mailcode: [id number] | [place], [place] | | | | | [facility] | [address] | | | | | [address] [place], [place] | [phone] | | | | | [address] | | | | | | [phone] | | | +--------+ + + + [...]
--- OUTSIDE RECORDS SUMMARY | ~2019-10-17 | XMS | Encounter Summary ---
Demographics + + + | Address | [address] | | | [place] [address] | + + + | Home Phone [...] Providers + +------+ + | Care Sap Security Consultant Name | Role | Phone [...] as of this encounter Progress Notes Interface, Doubling Machine Operator In - 07/03/2006 2:33 AM PST [id number] GEOVANNI [place] J [id number] Clinic Date: 06/24/2006 Clinic: Rheumatology Subjective: Belinda Meehan is a 46-year-old woman here for followup of fibromyalgia. She comes from [place] and is now also working with the [...] I will have a meeting soon with [facility] to start doing my films here, [...] 2 months. Caitlin Rivera M.S., F.N.P. / [id number] / [id number] / [id number] / [id number] cc: [facility] Electronically signed by Caitlin Rivera 07-02-2006 11:27:56 AM documented in this encounter Plan of Treatment Not on filedocumented as of this encounter Visit Diagnoses Not on filedocumented in this encounter"
--- OUTSIDE RECORDS SUMMARY | ~2019-10-17 | XMS | Encounter Summary ---
Demographics + + + | Address | [address] | | | [place] [address] | + + + | Home Phone [...] Providers + +------+ + | Care Business Consultant Name | Role | Phone | [...] + | 02/15/ | Office | [facility] | Alanis, | Antibiotic-associate | | 2019 | Visit | MEDICINE [address] | MD [place]ron[place] | d diarrhea (Primary | | | | Street [place] | [address] [facility] | Dx); [facility] | | | | [place] [address] | [place] [address] | prescription opiate | | | | [phone] | [phone] | use; Seasonal | | | | [...] | | | | | [place] [address] | | | | | | [phone] | | | | | | | | +--------+---------+ + + + | 12/20/ | Office | Audiology | Elisabet Munson MS | | | 2019 | Visit | | [facility] [address] | | | | [address] [place] | | | | | | [place] [address] | | | | | | [phone] | | | | | | | | +--------+---------+ + + + | 12/20/ | Office | Otolaryngology | Ulysses Genao MD | | | 2019 | Visit | | [address] | | | | | | [address] [place], | | | | | | [place] [address] | | | | | | [phone] | | | | | | | [...] mL/min/1.73m2 | Yudy NATHAN | | | [place] | RATE,ESTIMATED | | MEDICAL | | | | mL/min/1.88w9Uzdv than | | CENTER - | | [...] + | [facility] | [address] | [place] | [phone] | | [facility] | | [address] | | | - LABORATORY | | [...] [address] | [place] | [phone] | | [facility] | | [address] | | | - LABORATORY | | | | + + + + + documented in this encounter Visit Diagnoses + + | Diagnosis | + + | Antibiotic-associated diarrhea - Primary Diarrhea | + + | ocean transportation intermediary prescription opiate use | + + | [...] | First dose on [facility] 10/15/17 at 1215 | | | | [...]
--- OUTSIDE RECORDS SUMMARY | ~2019-10-17 | XMS | Encounter Summary ---
Demographics + + + | Address | [address] | | | [place] [address] | + + + | Home Phone [...] Providers + +------+ + | Care Radio Installer Automobile Name | Role | Phone | [...] | unspecified | | | | [address] [facility] | VERONICA KAY | chronicity (Primary | | | | [place] | [place] [address] | Dx) | | | | [address] | [phone] | | | | | [phone] | | | +--------+ + + + [...] | | | | | [place] [address] | | | | | | [phone] | | | | | | | | +--------+---------+ + + + | 12/20/ | Office | Audiology | Elisabet Munson MS | | | 2019 | Visit | | [facility] [address] | | | | | | [place] | | | | | | [place] [address] | | | | | | [phone] | | | | | | | | +--------+---------+ + + + | 12/20/ | Office | Otolaryngology | Ulysses Genao MD | | | 2020 | Visit | | [address] [facility] | | | | | | [address] [place], | | | | | | [place] [address] | | | | | | [phone] | | | | | | | [...]
--- OUTSIDE RECORDS SUMMARY | ~2019-10-17 | XMS | Encounter Summary ---
Demographics + + + | Address | [address] | | | [place] [address] | + + + | Home Phone [...] Team Providers + +------+ + | Care Cambering Machine Operator Name | Role | Phone [...] (has been | | 2007 | | [place] [address] | [address] | in the bathroom | | | | Ave Mailcode: CH4S | [facility] | since one this | | | | [facility] | [place], [place] | morning with | | | | and Healing, | [address] | IBS/dumping syndrome | | | | Building [address], | [phone] | symptoms) | | | | Floor [place], [place] | | | | | | [address] | | | | | | [phone] | | | +--------+ + + + [...]
--- OUTSIDE RECORDS SUMMARY | ~2019-10-17 | XMS | Encounter Summary ---
Demographics + + + | Address | [address] | | | [place] [address] | + + + | Home Phone [...] Providers + +------+ + | Care Machine Heddle Cleaner Name | Role | Phone | [...] + | 06/14/ | Refill | [facility] | Alanis, | Medication Refill | | 2018 | | MEDICINE [address] [place] [address] | MD Petrona | | | | | [facility] | [address] [place] [address] | | | | | [place] [address] | [place] [address] | | | | | [phone] | [phone] | | | | | | | [...] | | | | | [place] [address] | | | | | | [phone] | | | | | | | | +--------+---------+ + + + | 12/20/ | Office | Audiology | Elisabet Munson MS | | | 2019 | Visit | | [facility] [address] | | | | | | [place] [address] [place] | | | | | | [place] [address] | | | | | | [phone] | | | | | | | | +--------+---------+ + + + | 12/20/ | Office | Otolaryngology | Ulysses Genao MD | | | 2020 | Visit | | [address] [facility] | | | | | | [address] [place], | | | | | | [place] [address] | | | | | | [phone] | | | | | | | | +--------+---------+ + + + documented as of this encounter Visit Diagnoses Not on filedocumented in this encounter"
--- OUTSIDE RECORDS SUMMARY | ~2019-10-17 | XMS | Encounter Summary ---
Demographics + + + | Address | [address] | | | [place] [address] | + + + | Home Phone [...] Providers + +------+ + | Care Educational Institution President Name | Role | Phone | [...] | [facility] | [address] [place], | | | | | [address] | [place] [address] | | | | | Mailcode: CH15P | | | | | | [facility] | | | | | | and Healing, | | | | | | Building | | | | | | Floor [place], [place] | | | | | | [address] | | | | | | [phone] | | | +--------+ + + + [...]
--- OUTSIDE RECORDS SUMMARY | ~2019-10-17 | XMS | Encounter Summary ---
Demographics + + + | Address | [address] | | | [place] [address] | + + + | Home Phone [...] Team Providers + +------+ + | Care Lip Cutter Name | Role | Phone | [...] as of this encounter Progress Notes Interface, Network Systems Operator In - 09/13/2005 2:06 AM PST [id number] [facility] Date: 12/12/2004 Clinic: Endocrinology PHONE CONTACT NOTE The patient called me today after having surgery last week here at [facility]. Her concern was the development of 2 [...] cushion which I have ordered today through [facility], phone #[phone] and fax #[phone]. Today, the patient will monitor the decubiti closely and will be in touch with myself and her other physician depending on the progress. She also still has [address], which may be removed in one or two weeks when she returns to the Surgery Clinic at [facility]. Beto Meeks M.D. PD / HS [id number] / [id number] / [id number] / [id number] cc: Chris Padgett M.D. Electronically signed by Beto Meeks 09-12-2005 02:22:31 AM documented i n this encounter Plan of Treatment Not on filedocumented as of this encounter Visit Diagnoses Not on filedocumented in this encounter"
--- OUTSIDE RECORDS SUMMARY | ~2019-10-17 | XMS | Encounter Summary ---
Demographics + + + | Address | [address] | | | [place] [address] | + + + | Home Phone [...] Providers + +------+ + | Care Supervisor Dry Paste Name | Role | Phone | + [...] [facility] | Alanis, | Paperwork | | 2017 | | MEDICINE [address] [place] [address] | MD Petrona | | | | | [facility] | [address] [place] [address] | | | | | [place] [address] | [place] [address] | | | | | [phone] | [phone] | | | | | | | [...] | | | | | [place] [address] | | | | | | [phone] | | | | | | | | +--------+---------+ + + + | 12/20/ | Office | Audiology | Elisabet Munson MS | | | 2019 | Visit | | [facility] [address] | | | | | | [place] [address] [place] | | | | | | [place] [address] | | | | | | [phone] | | | | | | | | +--------+---------+ + + + | 12/20/ | Office | Otolaryngology | Ulysses Genao MD | | | 2020 | Visit | | [address] [facility] | | | | | | [address] [place], | | | | | | [place] [address] | | | | | | [phone] | | | | | | | | +--------+---------+ + + + documented as of this encounter Visit Diagnoses Not on filedocumented in this encounter"
--- OUTSIDE RECORDS SUMMARY | ~2019-10-17 | XMS | Encounter Summary ---
Demographics + + + | Address | [address] | | | [place] [address] | + + + | Home Phone [...] Providers + +------+ + | Care Fire Engine Operator Name | Role | Phone | [...] | 2006 | Visit | [facility] | MD Darrion,PhD [address] | (Primary Dx) | | | | for Health and | [address] | | | | | Healing [address] | [place], [place] | | | | | Ave Mailcode: | [address] | | | | | CH12A [facility] for | [phone] | | | | | Health and Healing, | | | | | | [facility] | | | | | | Floor [place], [place] | | | | | | [address] | | | | | | [phone] | | | +--------+---------+ + + + [...] normal limits except as noted. RIGHT LEFT Purdin Crepitation J Sign Apprehension LIGAMENTS: Within normal [...] are not effective. Angel Morales M.D., Ph.D. Visiting Teacher, Surgical Speech Language Pathologist Travel Orthopedics & Cartilage Reconstruction Surgery Department of Orthopedics [email or web address] documented in this encou nter Plan of Treatment Not on filedocumented as of this encounter Visit Diagnoses + + | Diagnosis | + + | Osteoarthrosis, unspecified whether generalized or localized, lower leg - Primary | + + documented in this encounter
--- OUTSIDE RECORDS SUMMARY | ~2019-10-17 | XMS | Encounter Summary ---
Demographics + + + | Address | [address] | | | [place] [address] | + + + | Home Phone [...] Providers + +------+ + | Care Production Crew Supervisor Name | Role | Phone [...] Refill Request | | 2007 | | [place] [address] | [address] | (Sucralfate) | | | | [place] Mailcode: CH4S | [facility] | | | | | [facility] | [place], [place] | | | | | and Healing, | [address] | | | | | [facility] | [phone] | | | | | Floor [place], [place] | | | | | | [address] | | | | | | [phone] | | | +--------+--------+ + + + [...]
--- OUTSIDE RECORDS SUMMARY | ~2019-10-17 | XMS | Encounter Summary ---
Demographics + + + | Address | [address] | | | [place] [address] | + + + | Home Phone [...]
--- OUTSIDE RECORDS SUMMARY | ~2019-10-17 | XMS | Encounter Summary ---
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 female [facility] Comprehensive [...] weeks. 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 Expectations for this visit include [...] Bone spur on right heel - global implementation manager last week, insurance [place] for [place] [...] bid 2. Fentanyl patch 25mcg/hr Q72hr 3. Everly 10/325 NTE 4 per day 4 Continue [...] weeks or sooner if needed. DELFINA MOLINA [facility] Comprehensive Pain Center Mail code CH 4P [facility] and [facility] [address] [facility] [address] Tasha Can - 11/11/2006 9:29 AM PDTCMA [...]
--- OUTSIDE RECORDS SUMMARY | ~2019-10-17 | XMS | Encounter Summary ---
Demographics + + + | Address | [address] | | | [place] [address] | + + + | Home Phone [...] Providers + +------+ + | Care Child Caregiver Private Home Name | Role | Phone | [...] + + | 12/20/ | Office | [facility] | Ulysses Genao MD | Meniere's disease of | | 2019 | Visit | OTOLARYNGOLOGY [address] | [address] [place] | right ear (Primary | | | | [address] | [address] [place], | Dx); Benign | | | | [place] | [place] [address] | paroxysmal | | | | [address] | [phone] | positional vertigo, | | | | [phone] | | unspecified | | | | [...] tympanog ainsley were A tympanograms. Her speech hatchery laborer threshold is 30 dB in the right [...] sched uled for a Tayler maneuver in [place]. Extended time was spent with the patient.Electronic [...] | | | | | | [address] [place] [address] | | | | | | [place] [address] | | | | | | [phone] | | | | | | | | +--------+---------+ + + + | 12/20/ | Office | Audiology | Elisabet Munson MS | | | 2019 | Visit | | [facility] [address] | | | | | [address] [place] | | | | | | [place] [address] | | | | | | [phone] | | | | | | | | +--------+---------+ + + + | 12/20/ | Office | Otolaryngology | Ulysses Genao MD | | | 2019 | Visit | | [address] | | | | | | [address] [place], | | | | | | [place] [address] | | | | | | [phone] | | | | | | | | +--------+---------+ + + + documented as of this encounter Visit Diagnoses + + | Diagnosis | + + | Meniere's disease of right ear - Primary Meniere's disease, unspecified | + + | Benign paroxysmal positional vertigo, unspecified laterality | + + documented in this encounter
--- OUTSIDE RECORDS SUMMARY | ~2019-10-17 | XMS | Encounter Summary ---
Demographics + + + | Address | [address] | | | [place] [address] | + + + | Home Phone [...] + | 08/31/ | Refill | [facility] | Alanis, | Medication Refill | | 2017 | | MEDICINE [address] [place] [address] | MD Petrona | | | | | [facility] | [address] [place] [address] | | | | | [place] [address] | [place] [address] | | | | | [phone] | [phone] | | | | | | | [...] | | | | | [place] [address] | | | | | | [phone] | | | | | | | | +--------+---------+ + + + | 12/20/ | Office | Audiology | Elisabet Munson MS | | | 2019 | Visit | | [facility] [address] | | | | | | [place] [address] [place] | | | | | | [place] [address] | | | | | | [phone] | | | | | | | | +--------+---------+ + + + | 12/20/ | Office | Otolaryngology | Ulysses Genao MD | | | 2019 | Visit | | [address] | | | | | | [address] [place], | | | | | | [place] [address] | | | | | | [phone] | | | | | | | | +--------+---------+ + + + documented as of this encounter Visit Diagnoses + + | Diagnosis | + + | Chronic bilateral low back pain without sciatica | + + documented in this encounter"
--- OUTSIDE RECORDS SUMMARY | ~2019-10-17 | XMS | Encounter Summary ---
Demographics + + + | Address | [address] | | | [place] [address] | + + + | Home Phone [...] Team Providers + +------+ + | Care Tea Plantation Worker Name | Role | Phone | [...] | | | | | Procedures | [facility] | Mailcode: | | | | | CONSULT TO | Rd | [facility] | | | | | NEUROLOGY | [place], [place] | for Health | | | | | | [address] | and Healing, | | | | | | Phone: | Building 1, | | | | | | [phone] | 8th Floor | | | | | | | [place], [place] | | | | | | | [address] | | | | | | | Phone: | | | | | | | [phone] | | | | | | | Fax: | | | | | | | [phone] | +--------+--------+ + + + + Encounter Details +--------+---------+ + + + | Date | Type | Department | Care Team | Description | +--------+---------+ + + + | 03/24/ | Office | Neurology at | aTniya Guerrero, | Migraine Headache | | 2007 | Visit | [facility] & | | (Primary Dx) | | | | Healing [address] | | | | | | [place] Mailcode: CH8C | | | | | | [facility] | | | | | | and Healing, | | | | | | Building | | | | | | Floor [place], [place] | | | | | | [address] | | | | | | [phone] | | | +--------+---------+ + + + [...] low blood pressure. 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 Social History Main [...] touch symmetrically throughout. Cerebellar testing shows normal dfczxu-lu-tmdf and finger tapping. On gait testing, she [...] the names of 3 headache specialists in [place]- Dr. Koby García, Dr. Dakota Sweet and [...]
--- OUTSIDE RECORDS SUMMARY | ~2019-10-17 | XMS | Encounter Summary ---
Demographics + + + | Address | [address] | | | [place] [address] | + + + | Home Phone [...] Providers + +------+ + | Care Railroad Car Inspector Name | Role | Phone [...] [address] | | | | | [facility] | [place], [place] | | | | | [address] | [address] | | | | | [address] | [phone] | | | | | Phys[facility] Pavilion | | | | | | Physician's | | | | | | Pavilion [place], | | | | | | [place] [address] | | | | | | [phone] | | | +--------+--------+ + + + [...]
--- OUTSIDE RECORDS SUMMARY | ~2019-10-17 | XMS | Encounter Summary ---
Demographics + + + | Address | [address] | | | [place] [address] | + + + | Home Phone [...] Team Providers + +------+ + | Care Provider Relations Advocate Name | Role | Phone | + +------+ + PCP | Unavailable | + +------+ + Encounter Details +--------+ + + + + | Date | Type | Department | Care Team | Description | +--------+ + + + + | 08/09/ | Results | | Other, Faculty | | | 2002 | Only | | [phone] | | +--------+ + + + + [...] + + | TEST | Lipid to Ocatviano | | [facility] | | | REQUESTED [...] + | Ordered by [facility] | [facility] | | | DEPARTMENT OF | | | PATHOLOGY | + + + + + + + + | Performing | Address | City/State/Zipcode | Phone Number | | Organization | | | | + + + + + | [facility] DEPARTMENT OF | [facility] | [place] [address] | | | PATHOLOGY | [address] | | | + + + + + | [facility] DEPARTMENT OF | [facility] | [place] [address] | | | PATHOLOGY | [address] | | | + + + + + documented in this encounter Visit Diagnoses Not on filedocumented in this encounter"
--- OUTSIDE RECORDS SUMMARY | ~2019-10-17 | XMS | Encounter Summary ---
Demographics + + + | Address | [address] | | | [place] [address] | + + + | Home Phone [...] | 12/07/ | Abstract | [facility] | Alanis, | | | 2017 | | MEDICINE [address] | MD Petrona | | | | | [address] [facility] | [address] [facility] | | | | | [place] [address] | [place] [address] | | | | | [phone] | [phone] | | | | | | | [...] | | | | | [place] [address] | | | | | | [phone] | | | | | | | | +--------+---------+ + + + | 12/20/ | Office | Audiology | Elisabet Munson MS | | | 2019 | Visit | | [facility] [address] [place] | | | | | | [place] [address] | | | | | | [phone] | | | | | | | | +--------+---------+ + + + | 12/20/ | Office | Otolaryngology | Ulysses Genao MD | | | 2019 | Visit | | [address] | | | | | | [address] [place], | | | | | | [place] [address] | | | | | | [phone] | | | | | | | [...]
--- OUTSIDE RECORDS SUMMARY | ~2019-10-17 | XMS | Encounter Summary ---
Demographics + + + | Address | [address] | | | [place] [address] | + + + | Home Phone [...] Providers + +------+ + | Care Automation Operator Name | Role | Phone | [...] + | 07/14/ | Refill | [facility] | Alanis, | Medication Refill | | 2017 | | MEDICINE [address] [place] [address] | MD Petrona | | | | | [facility] | [address] [place] [address] | | | | | [place] [address] | [place] [address] | | | | | [phone] | [phone] | | | | | | | [...] | | | | | [place] [address] | | | | | | [phone] | | | | | | | | +--------+---------+ + + + | 12/20/ | Office | Audiology | Elisabet Munson MS | | | 2019 | Visit | | [facility] [address] | | | | | | [place] [address] [place] | | | | | | [place] [address] | | | | | | [phone] | | | | | | | | +--------+---------+ + + + | 12/20/ | Office | Otolaryngology | Ulysses Genao MD | | | 2020 | Visit | | [address] [facility] | | | | | | [address] [place], | | | | | | [place] [address] | | | | | | [phone] | | | | | | | | +--------+---------+ + + + documented as of this encounter Visit Diagnoses Not on filedocumented in this encounter"
--- OUTSIDE RECORDS SUMMARY | ~2019-10-17 | XMS | Encounter Summary ---
Demographics + + + | Address | [address] | | | [place] [address] | + + + | Home Phone [...] Providers + +------+ + | Care Supervisor Ordnance Truck Installation Name | Role | Phone | + [...] + | 03/02/ | Telephone | [facility] | Alanis, | Paperwork | | 2017 | | MEDICINE [address] [place] [address] | MD Petrona | | | | | [facility] | [address] [place] [address] | | | | | [place] [address] | [place] [address] | | | | | [phone] | [phone] | | | | | | | [...] | | | | | [place] [address] | | | | | | [phone] | | | | | | | | +--------+---------+ + + + | 12/20/ | Office | Audiology | Elisabet Munson MS | | | 2019 | Visit | | [facility] [address] | | | | | | [place] [address] [place] | | | | | | [place] [address] | | | | | | [phone] | | | | | | | | +--------+---------+ + + + | 12/20/ | Office | Otolaryngology | Ulysses Genao MD | | | 2020 | Visit | | [address] [facility] | | | | | | [address] [place], | | | | | | [place] [address] | | | | | | [phone] | | | | | | | | +--------+---------+ + + + documented as of this encounter Visit Diagnoses Not on filedocumented in this encounter"
--- OUTSIDE RECORDS SUMMARY | ~2019-10-17 | XMS | Encounter Summary ---
Demographics + + + | Address | [address] | | | [place] [address] | + + + | Home Phone [...] Team Providers + +------+ + | Care Sfdc Developer Name | Role | Phone | [...] | at [place] | [facility] | | | | | [address] | [place] [address] | | | | | [address] | | | | | | [place], 2nd floor | | | | | | [place], [place] | | | | | | [address] | | | | | | [phone] | | | +--------+ + + + [...]
--- OUTSIDE RECORDS SUMMARY | ~2019-10-17 | XMS | Encounter Summary ---
Demographics + + + | Address | [address] | | | [place] [address] | + + + | Home Phone [...] Providers + +------+ + | Care Solderer Assembler Name | Role | Phone | [...] + + | 11/16/ | Telephone | [facility] | Alanis, | Lab Results | | 2019 | | MEDICINE [address] [place] [address] | MD Petrona | | | | | [facility] | [address] [place] [address] | | | | | [place] [address] | [place] [address] | | | | | [phone] | [phone] | | | | | | | [...] | | | | | [place] [address] | | | | | | [phone] | | | | | | | | +--------+---------+ + + + | 12/20/ | Office | Audiology | Elisabet Munson MS | | | 2020 | Visit | | [facility] [address] | | | | | | [place] [address] [place] | | | | | | [place] [address] | | | | | | [phone] | | | | | | | | +--------+---------+ + + + | 12/20/ | Office | Otolaryngology | Ulysses Genao MD | | | 2020 | Visit | | [address] | | | | | | [address] [place], | | | | | | [place] [address] | | | | | | [phone] | | | | | | | | +--------+---------+ + + + documented as of this encounter Visit Diagnoses Not on filedocumented in this encounter"
--- OUTSIDE RECORDS SUMMARY | ~2019-10-17 | XMS | Encounter Summary ---
Demographics + + + | Address | [address] | | | [place] [address] | + + + | Home Phone [...] Providers + +------+ + | Care Bus Driver School Name | Role | Phone | [...] + + | 05/28/ | Telephone | [facility] | Alanis, | Pain Management | | 2016 | | MEDICINE [address] [place] [address] | MD Petrona | | | | | [facility] | [address] [place] [address] | | | | | [place] [address] | [place] [address] | | | | | [phone] | [phone] | | | | | | | [...] | | | | | [place] [address] | | | | | | [phone] | | | | | | | | +--------+---------+ + + + | 12/20/ | Office | Audiology | Elisabet Munson MS | | | 2019 | Visit | | [facility] [address] | | | | | | [address] [place] [address] [place] | | | | | | [place] [address] | | | | | | [phone] | | | | | | | | +--------+---------+ + + + | 12/20/ | Office | Otolaryngology | Ulysses Genao MD | | | 2020 | Visit | | [address] | | | | | | [address] [place], | | | | | | [place] [address] | | | | | | [phone] | | | | | | | | +--------+---------+ + + + documented as of this encounter Visit Diagnoses Not on filedocumented in this encounter"
--- OUTSIDE RECORDS SUMMARY | ~2019-10-17 | XMS | Encounter Summary ---
Demographics + + + | Address | [address] | | | [place] [address] | + + + | Home Phone [...] Providers + +------+ + | Care Web Operations Administrator Name | Role | Phone | [...] [address] | | | | | [facility] | [place], [place] | | | | | [address] | [address] | | | | | [address] | [phone] | | | | | Physician's Pavilion | | | | | | Physician's | | | | | | Pavilion [place], | | | | | | [place] [address] | | | | | | [phone] | | | +--------+--------+ + + + [...]
--- OUTSIDE RECORDS SUMMARY | ~2019-10-17 | XMS | Encounter Summary ---
Demographics + + + | Address | [address] | | | [place] [address] | + + + | Home Phone [...] Providers + +------+ + | Care Head Irrigator Name | Role | Phone | + [...] + + | 11/12/ | Telephone | [facility] | Alanis, | Leg Swelling | | 2017 | | MEDICINE [address] [place] [address] | MD [place] | | | | | [facility] | [address] [place] [address] | | | | | [place] [address] | [place] [address] | | | | | [phone] | [phone] | | | | | | | [...] | | | | | [place] [address] | | | | | | [phone] | | | | | | | | +--------+---------+ + + + | 12/20/ | Office | Audiology | Elisabet Munson MS | | | 2019 | Visit | | [facility] [address] | | | | | | [address] | | | | | | [place] [address] | | | | | | [phone] | | | | | | | | +--------+---------+ + + + | 12/20/ | Office | Otolaryngology | Ulysses Genao MD | | | 2020 | Visit | | [address] [facility] | | | | | | [address] [place], | | | | | | [place] [address] | | | | | | [phone] | | | | | | | | +--------+---------+ + + + documented as of this encounter Visit Diagnoses Not on filedocumented in this encounter"
--- OUTSIDE RECORDS SUMMARY | ~2019-10-17 | XMS | Encounter Summary ---
Demographics + + + | Address | [address] | | | [place] [address] | + + + | Home Phone [...] | | shoulder | Sulaiman-Gily | [address] [place] | | | | | Tear of MD [address] | [place] | | | | | right | [address] | [address] Phone: | | | | | supraspinatu | [place], | [phone] | | | | | s tendon, | [place] | Fax: | | | | | initial | [address] | [phone] | | | | | encounter | Phone: | | | | | | | [phone] | | | | | | | Fax: | | | | | | | [phone] | | +--------+ + + + + [...] Acute pain | Emmy-Tajt | [address] | | | | | of right | i, | [place], | | | | | shoulder | [place] | [place] | | | | | Procedures | , [address] | [address] | | | | | MRI Shoulder | [address] | Phone: | | | | | Right wo | [place], | [phone] | | | | | Contrast | [place] | Fax: | | | | | | [address] | [phone] | | | | | | Phone: | | | | | | | [phone] | | | | | | | Fax: | | | | | | | [phone] | | +--------+--------+ + + + + [...] + + | 01/15/ | Office | [facility] | Alanis, | Acute pain of right | | 2017 | Visit | MEDICINE [address] [place] [address] | MD [place]rona | shoulder (Primary | | | | [facility] | [address] [facility] | Dx); Chronic | | | | [place] [address] | [place] [address] | diarrhea; Fatty | | | | [phone] | [phone] | liver; S/P bariatric | | | [...] with myelopathy, lumbar region Stroke ([facility]) Syncope Tremor Type II or [...] Surgeon: Luther Brito MD; Location: [facility] MEDICAL PROCEDURE UNIT DILATION AND CURETTAGE OF UTERUS ELBOW SURGERY FINGER TRIGGER RELEASE 2002 FINGER TRIGGER RELEASE 2009 GASTRIC BYPASS SURGERY 2004 HYSTERECTOMY 05/14/1980 JOINT REPLACEMENT Bilateral 2007,2008 KNEE ARTHROSCOPY 2005 LAPAROSCOPY 01/27/2015 LAPAROTOMY 2008 ROTATOR CUFF REPAIR 2005 SPINE SURGERY TONSILLECTOMY 1964 UPPER GASTROINTESTINAL ENDOSCOPY N/A 12/18/2017 Procedure: EGD; Surgeon: Luther Brito MD; Location: [facility] MEDICAL PROCEDURE UNIT CURRENT MEDICATIONS Current [...] (See Comments) Confused and questionable for seizures Kezyvasbmm-Kvok-Xrpxukdp Hives and Rash Cephalexin Hives Ciprofloxacin Hives [...] Note: Parts of this documentwere created using Dimple Dough speech recognition software. As a r esult, [...] | | | [address] [facility] | | | | | | [place] [address] | | | | | | [phone] | | | | | | | | +--------+---------+ + + + | 12/20/ | Office | Audiology | Elisabet Munson MS | | 2019 | Visit | | [facility] | | | | | | [place] [address] [address] | | | | | | [place] [address] | | | | | | [phone] | | | | | | | | +--------+---------+ + + + | 12/20/ | Office | Otolaryngology | Ulysses Genao MD | | | 2020 | Visit | | [address] [place] | | | | | | [address] [place], | | | | | | [place] [address] | | | | | | [phone] | | | | | | | [...]
--- OUTSIDE RECORDS SUMMARY | ~2019-10-17 | XMS | Encounter Summary ---
Demographics + + + | Address | [address] | | | [place] [address] | + + + | Home Phone [...] + +------+ + | Care Automobile Club Travel Counselor Name | Role | Phone [...] | | | Metabolism | bypass | [address] | [address] | | | | | Hypovitamino | [address], | Ave | | | | | [address] | [address] | [place], [place] | | | | | nutritional | [place] | [address] | | | | | deficiency | [address] | Phone: | | | | | Other | Phone: | [phone] | | | | | protein-jose manuel | [phone] | Fax: | | | | | nick | Fax: | [phone] | | | | | malnutrition | [phone] | | | | | | Weight | | | | | | | gain | | | | | | | Procedures | | | | | | | CONSULT TO | | | | | | | ENDO | | | | | | | [address] | | | | | | | [address] | | | +--------+--------+ + + + [...] | | | [facility] | [place], [place] | Dx); Hypothyroidism; | | | | [address] | [address] | Essential | | | | [address] | [phone] | hypertension 401.9; | | | | [facility] | | Secondary | | | | Physician's | | hyperparathyroidism, | | | | [facility]ilion [place], | | non-renal (HCC) | | | | [place] [address] | | | | | | [phone] | | | +--------+---------+ + + + [...] 32.9 (L) RDW 11.5-15.0 % 12.4 PLATELET TW259-229 K/cu mm 205 IRON 30-160 ug/dL 114 [...] like the sleeve but was told by [facility] DIRECTOR OF HEAD START that it is not an option, recommended pharmacologic weight mgmt. Gets primary care in [place], [place] (Maria Esther Cintron). Weight leveled out [...] replacement 08/2007 right knee Lumbar fusion 05/2008 L5-R9evbwyu with bone spur removals Appendectomy Cholecystectomy section [...] Hives Mainly in the legs Clindamycin Codeine Ninidke-Zxqotegltn-Vfl-Caff Balance problems Fioricet W/Codeine (Bbzkcpzkte-Rqluhgdxfs-Ewy-Cod) Keflex (Cephalexin) Morphine IM ( only in [facility]) made gut pain worse 08/27/06: Trial of [...] Ly Allred MD R-2, Internal Medicine Pager: [phone] documented in this enco unter Plan of [...] | | If you are | | [place] | | | | screening for diabetes: [...] + | [facility] - | [address] | [place] [address] | | | [place] | | | [...] [facility] | [address] | [place] [address] | | | SERVICES, SPECIAL | [place] [...] + + | [facility] | [address] | [place] [address] | | | SERVICES, CORE | PARK [...] + + | [facility] | [address] | [place] [address] | | | SERVICES, SPECIAL | [place]AN [...] by | | | | | | [address] | | | | | | Abdiaziz Morales, [facility],[place] | | | | | | [address] | | | | | | [phone]. | | | | | | [facility], Get Gao, | | | | [...] [facility] | [address] | [place], [place] | | | UN[facility] - INT[facility] | | [address] | | + + + + + [...] | + + + + + | [facility] | [address] | [place] [address] | | | SERVICES, SPECIAL | PARK [...] + | [facility] | [address] | [place] [address] | | | [place] | | | [...]
--- OUTSIDE RECORDS SUMMARY | ~2019-10-17 | XMS | Encounter Summary ---
Demographics + + + | Address | [address] | | | [place] [address] | + + + | Home Phone [...] Providers + +------+ + | Care Staff Appraiser Name | Role | Phone | [...] [address] | | | | | [facility] | [place], [place] | | | | | [address] | [address] | | | | | [address] | [phone] | | | | | [facility] | | | | | | Physician's | | | | | | Pavilion [place], | | | | | | [place] [address] | | | | | | [phone] | | | +--------+ + + + [...]
--- OUTSIDE RECORDS SUMMARY | ~2019-10-17 | XMS | Encounter Summary ---
Demographics + + + | Address | [address] | | | [place] [address] | + + + | Home Phone [...] Team Providers + +------+ + | Care Buyer Liaison Name | Role | Phone | [...] | | | [facility] | [place], [place] | Bypass Surgery November | | | | [address] | [address] | 2003; | | | | [address] | [phone] | Hypothyroidism; | | | | [facility] | | Essential | | | | Physician's | | hypertension 401.9; | | | | [facility] [place], | | Iron Deficiency | | | | [place] [address] | | | | | | [phone] | | | +--------+---------+ + + + [...] encounter Progress Notes Beot Meeks MD - 07/25/2008 1:54 PM PSTFormatting [...] (Ciprofloxacin) Tramadol Morphine IM ( only in [facility]) made gut pain worse 08/27/06: Trial [...] 300 mg) by oral route once daily jmeycoepoo-kwwaoeriepzln-kdcxuwxo (FIORICET) 50-325-40 mg Oral Tablet take 2 [...]
--- OUTSIDE RECORDS SUMMARY | ~2019-10-17 | XMS | Encounter Summary ---
Demographics + + + | Address | [address] | | | [place] [address] [...] Team Providers + +------+ + | Care Express Clerk Name | Role | Phone | [...] | | | | Mailcode: CR131 | [place], [place] | | | | | Outpatient Clinic | [address] | | | | | [facility], | [phone] | | | | | [place] [address] | | | | | | [phone] | | | +--------+ + + + [...] | | | | | 2,SERUM | [facility] | | | | | | Laboratories. | | | | + + + + + + + + | Specimen | + + | | + + + + + + + | Performing | Address | City/State/Zipcode | Phone Number | | Organization | | | | + + + + + | [facility] | [address] | [place] [address] | | | LABORATORY | | | | + + + + + documented in this encounter Visit Diagnoses Not on filedocumented in this encounter"
--- OUTSIDE RECORDS SUMMARY | ~2019-10-17 | XMS | Encounter Summary ---
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 Diagnosis: [place] I: 1. (296.32) Major depressive disorder, recurrent, moderate. 2. (309.24) Adjustment disorder with anxiety. 3. 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 [place] II: Deferred [place] III: abdominal pain, migraine headache, low back pain. [place] IV: low finances [place] V: GAF 50 Plan: Return in 2 weeks. Check pacing, relaxation, activity, distraction. Ask about coping with previous headache. Continue cognitive/behavioral therapy. Total time spent with patient was approximately 45 minutes. LUKASZ CHARLES [facility] [address] [facility] [place] [address] documented in this encount er Plan of [...]
--- OUTSIDE RECORDS SUMMARY | ~2019-10-17 | XMS | Encounter Summary ---
Demographics + + + | Address | [address] | | | [place] [address] | + + + | Home Phone [...] Providers + +------+ + | Care Resident Services Director Name | Role | Phone [...] [address] | | | | | | [place], [place] | | | | | | [address] | | | | | | [phone] | | | +--------+ + + + [...]
--- OUTSIDE RECORDS SUMMARY | ~2019-10-17 | XMS | Encounter Summary ---
Demographics + + + | Address | [address] | | | [place] [address] | + + + | Home Phone [...] Providers + +------+ + | Care Manufacturing Advisor Name | Role | Phone | [...] Densitometry | | MD Beto | Density [facility] | | | | | Osteoporosis | [address] | [address] | | | | | Procedures | Ave | [address]em [address] | | | | | CONSULT TO | [place], [place] | Rd Mailcode: | | | | | BONE | [address] | [address] | | | | | DENSITOMETRY | Phone: | [address] | | | | | | [phone] | [place], [place] | | | | | | Fax: | [address] | | | | | | [phone] | Phone: | | | | | | | [phone] | | | | | | | Fax: | | | | | | | [phone] | +--------+--------+ + + + + Encounter Details +--------+---------+ + + + | Date | Type | Department | Care Team | Description | +--------+---------+ + + + | 08/23/ | Office | Endocrinology, | Sjh, Bmd Dexa | Other Osteoporosis | | 2007 | Visit | Diabetes and | [address] | (Primary Dx); | | | | Clinical Nutrition | [facility], | Symptomatic | | | | [address] | [place] [address] | Menopausal or Female | | | | [facility] Mailcode: | | Climacteric States; | | | | [address] | | Disorder of Bone | | | | [facility], [place] | | and Cartilage, | | | | [address] | | Unspecified | | | | [phone] | | | +--------+---------+ + + + [...] | | + +---------+--------+ + + | [place] DXA BONE | Imaging | Routin | [...]
--- OUTSIDE RECORDS SUMMARY | ~2019-10-17 | XMS | Encounter Summary ---
Demographics + + + | Address | [address] | | | [place] [address] | + + + | Home Phone [...] | | + + +---------+ + | Maroc Antonio Wells | ECON | Unknown | | + + +---------+ + Care Team Providers + +------+ + | Care Boiler Repair Supervisor Name | Role | Phone [...] | Other | | 2008 | | [place] [address] | [address] | | | | | Bethanie Mailcode: CH4S | [address] | | | | | [facility] | [place], [place] | | | | | and Healing, | [address] | | | | | [place] [address], [facility] | [phone] | | | | | Floor [place], [place] | | | | | | [address] | | | | | | [phone] | | | +--------+ + + + [...]
--- OUTSIDE RECORDS SUMMARY | ~2019-10-17 | XMS | Encounter Summary ---
Demographics + + + | Address | [address] | | | [place] [address] | + + + | Home Phone [...] Providers + +------+ + | Care Business Operations Coordinator Name | Role | Phone [...] + | 10/11/ | Refill | [facility] | Alanis, | Medication Refill | | 2019 | | MEDICINE [address] | MD [place] | | | | | [facility] | [address] [place] [address] | | | | | [place] [address] | [place] [address] | | | | | [phone] | [phone] | | | | | | | [...] | | | | | [place] [address] | | | | | | [phone] | | | | | | | | +--------+---------+ + + + | 12/20/ | Office | Audiology | Elisabet Munson MS | | | 2019 | Visit | | [facility] [address] | | | | | | [place] [address] [place] | | | | | | [place] [address] | | | | | | [phone] | | | | | | | | +--------+---------+ + + + | 12/20/ | Office | Otolaryngology | Ulysses Genao MD | | | 2020 | Visit | | [address] [facility] | | | | | | [address] [place], | | | | | | [place] [address] | | | | | | [phone] | | | | | | | | +--------+---------+ + + + documented as of this encounter Visit Diagnoses Not on filedocumented in this encounter"
--- OUTSIDE RECORDS SUMMARY | ~2019-10-17 | XMS | Encounter Summary ---
Demographics + + + | Address | [address] | | | [place] [address] | + + + | Home Phone [...] Team Providers + +------+ + | Care Etl Consultant Name | Role | Phone | [...] + + | 09/16/ | Telephone | [facility] Comprehensive | Miranda Lambert, | Memory loss | | 2006 | | Pain Center at | ANP | | | | | [facility] | | | | | | [address] | | | | | | Mailcode: CH15P | | | | | | [facility] | | | | | | and Healing, | | | | | | Building | | | | | | Floor [place], [place] | | | | | | [address] | | | | | | [phone] | | | +--------+ + + + [...]
--- OUTSIDE RECORDS SUMMARY | ~2019-10-17 | XMS | Encounter Summary ---
Demographics + + + | Address | [address] | | | [place] [address] | + + + | Home Phone [...] Providers + +------+ + | Care Human Intelligence Name | Role | Phone | [...] as of this encounter Progress Notes Interface, Bioinformatics Software Engineer In - 01/11/2005 6:26 PM [...] blindness. History was obtained from the patient, [facility] medical records, and two magnetic resonance [...] any point. She has been seen her cathodic protection technician in [facility], Dr. Lc Renteria, who by her [...] fibromyalgia. SOCIAL HISTORY: Patient lives in [facility] with her eldest son. She supports [...] acute distress. She does have a right-sided Salvadorean crutch which she uses to enter and [...] biceps, triceps, wrist extensors, finger extensors, hand configuration management manager, hip flexors and extensors, and ankle, plantar, and dorsiflexors as well as knee flexors and extensors. There is no pronator drift. Reflexes are 2+ and symmetrical at the biceps, triceps, brachioradialis, patellar, and ankle regions. Toes are downgoing to plantar stimulation. Light touch and tuning fork is within normal limits in the lower extremities. Luzrov-cb-bqqd and fine finger movements are within normal [...] Amin M.D., Neurophthalmology cc: CRYSTAL CARTER M.D. [facility] [address] [facility] [id number] signed by Interface, Bioinformatics Software Engineer In at 2004 6:26 PM PDTdocumented in this encounter Plan of Treatment Not on filedocumented as of this encounter Visit Diagnoses Not on filedocumented in this encounter"
--- OUTSIDE RECORDS SUMMARY | ~2019-10-17 | XMS | Encounter Summary ---
[...] Providers + +------+ + | Care Vehicle Body Builder Name | Role | Phone | [...] | 2006 | TRANSCRIPTI | [facility] at [employer] | [address] [facility] | QUESTIONNAIRE | | | ON | for Health and | [facility], [place] | | | | | Healing [address] | [address] | | | | | [place] Mailcode: | [phone] | | | | | [address]A [facility] | | | | | | Health and Healing, | | | | | | [facility] | | | | | | [place], [place] | | | | | | [address] | | | | | | [phone] | | | +--------+ + + + [...]
--- OUTSIDE RECORDS SUMMARY | ~2019-10-17 | XMS | Encounter Summary ---
Demographics + + + | Address | [address] | | | [place] [address] | + + + | Home Phone [...] Providers + +------+ + | Care Electric Motor Repair Supervisor Name | Role | Phone | + +------+ + | Pedrito Gutierrez MD | PCP | | + +------+ + Encounter Details +--------+---------+ + + + | Date | Type | Department | Care Team | Description | +--------+---------+ + + + | 09/09/ | Office | Comprehensive Pain | Nathalia Arora | Neck Pain; | | 2006 | Visit | [facility] | [address] | Spondylosis with | | | | [place] [address] | [place], | Myelopathy, Lumbar | | | | [address] Mailcode: | [place] [address] | Region; Herniated | | | | CH15P [place] [facility] | | Lumbar | | | | Health and Healing, | | Intervertebral Disc | | | | | | L4-5; Fibromyalgia | | | | Floor [place], [place] | | syndrome 729.1 | | | | [address] | | | | | | [phone] | | | +--------+---------+ + + + [...] December 02, 2006 Patient: Belinda J Shefali, [id number], 1960 I agree with the proposed Physical Therapy Treatment Plan. Provider: DELFINA MOLINA ANP Nathalia Garrett - 007 4:49 PM PDT Physical Therapy Medicare Progress Note Date: 09/09/2006 Belinda J Shefali [id number]. 1960 Start of Care: 06/23/2006 Referring Provider: [...] with walking and sitting; driving back to [place] 2 weeks ago, stopped at rest place and got out of care, falling onto B knees, getting better. Objective: Apparently patient's trip home 2 weeks ago was most likely related to her positi oning, ie B knees were hyperflexed for a prolonged time. She has not fallen since then, use s her lofstrand crutches consistently. Functionally, patient is walking 25 minutes at [employer] at least daily and tolerating it we [...] MI THERAPEUTIC | Procedures | Routin | Neck [...]
--- OUTSIDE RECORDS SUMMARY | ~2019-10-17 | XMS | Encounter Summary ---
Demographics + + + | Address | [address] | | | [place] [address] | + + + | Home Phone [...] Providers + +------+ + | Care Vacuum Furnace Operator Name | Role | Phone [...] as of this encounter Progress Notes Interface, Outsole Cementer Machine In - 08/14/2005 2:05 AM PST [id number] [facility] Date: 08/06/2005 Clinic: Rheumatology [...] of antiinflammatory diet that one of the complaint manager in [place] has written a book about, and I have had a patient do extremely well with it in terms of her IBS and fibromyalgia pain and fatigue. Belinda is interested in this and will pursue it. 3. I have given her a lot of articles that she can pass onto her physicians in [place]. She would like somebody there to learn [...] 4 months. Caitlin Rivera M.S., F.N.P. / [id number] / [id number] / [id number] / [id number] cc: Pedrito Gutierrez M.D. [address] [place] [address] Electronically signed by Caitlin Rivera 08-13-2005 03:37:47 PM documented i n this encounter Plan of Treatment Not on filedocumented as of this encounter Visit Diagnoses Not on filedocumented in this encounter"
--- OUTSIDE RECORDS SUMMARY | ~2019-10-17 | XMS | Encounter Summary ---
Demographics + + + | Address | [address] | | | [place] [address] | + + + | Home Phone [...] Providers + +------+ + | Care Biodiesel Technology Manager Name | Role | Phone | [...] Lab findings, | | 2007 | | [place] [address] | [address] | teaching, guidance, | | | | Ave Mailcode: [facility] | [address] | and counseling (labs | | | | [facility] | [place], [place] | done on 07/01/07) | | | | and Healing, | [address] | | | | | [facility] | [phone] | | | | | [place], [place] | | | | | | [address] | | | | | | [phone] | | | +--------+ + + + [...]
--- OUTSIDE RECORDS SUMMARY | ~2019-10-17 | XMS | Encounter Summary ---
Demographics + + + | Address | [address] | | | [place] [address] | + + + | Home Phone [...] + +------+ + | Care Manager Strategic Sourcing Name | Role | Phone | + +------+ + | Pet[place]a Thapa | PCP | | | MD | | | + +------+ + Encounter Details +--------+ + + + + | Date | Type | Department | Care Team | Description | +--------+ + + + + | 09/06/ | Abstract | [facility] | Provider, | | | 2018 | | GASTROENTEROLOGY | MD Colin [address] | | | | | [address] | [address]. | | | | | [address] [place] | [place] [address] | | | | | [address] | | | | | | [phone] | | | +--------+ + + + [...] | | | | | [place] [address] | | | | | | [phone] | | | | | | | | +--------+---------+ + + + | 12/20/ | Office | Audiology | Elisabet Munson MS | | | 2019 | Visit | | [facility] [address] | | | | | [address] [place] | | | | | | [place] [address] | | | | | | [phone] | | | | | | | | +--------+---------+ + + + | 12/20/ | Office | Otolaryngology | Ulysses Genao MD | | | 2019 | Visit | | [address] | | | | | | [address] [place], | | | | | | [place] [address] | | | | | | [phone] | | | | | | | [...]
--- OUTSIDE RECORDS SUMMARY | ~2019-10-17 | XMS | Encounter Summary ---
Demographics + + + | Address | [address] | | | [place] [address] | + + + | Home Phone [...] Providers + +------+ + | Care Ship Rigger Name | Role | Phone | [...] | | | | | (degenerativ | [place] | | | | | e joint | [address] | [address] | | | | | disease) of | | Phone: | | | | | knee Knee | | [phone] | | | | | pain Major | | Fax: | | | | | depressive | | [phone] | | | | | disorder, | [...] 06/21/ | Office | [facility] at [facility] | Lukasz Charles, | Major Depressive | | 2008 | Visit | [address] | PhD [address] | Disorder, Recurrent | | | | Mailcode: CH15P | [place], [place] | Episode, Mild (HCC); | | | | [place] for [facility] | [address] | LBP (Low Back | | | | and Healing, | [phone] | Pain); Migraine | | | | | | Headache | | | | Floor [place], [place] | | | | | | [address] | | | | | | [phone] | | | +--------+---------+ + + + [...] migraine specialist this week. She reported that [employer] has done some sewing and she found [...] benefit as she becomes more active. Diagnosis: [place] I: 1. (296.31) Major depressive disorder, recurrent, mild. 2. (309.24) Adjustment disorder with anxiety. 3. 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 [place] II: Deferred [place] III: abdominal pain, migraine headache, low back pain. [place] IV: low finances [place] V: GAF 55-60 Plan: return with next medical follow-up appointment. Check mood, pain, surgical recovery , relaxation, activity, distraction, eating. Ask about headache specialist, physical therap y. Continue cognitive/behavioral therapy. Total time spent with patient was approximately 45 minutes. LUKASZ CHARLES PHD [facility] [address] [facility], [address] [place] [address] documented in this en counter Plan of [...]
--- OUTSIDE RECORDS SUMMARY | ~2019-10-17 | XMS | Encounter Summary ---
Demographics + + + | Address | [address] | | | [place] [address] | + + + | Home Phone [...] Providers + +------+ + | Care Ophthalmic Asst Name | Role | Phone | [...] of this encounter Progress Notes Interface, Automation Application Engineer In - 03/29/2005 5:05 AM PDT [id number] [facility] Date: 03/20/2005 Clinic: Rheumatology [...] and sense of disability is 5/10. Her ed case manager needs a note from me [...] to treat restless legs. There is a lumber scaler in [place] who is using large doses to reduce [...] 4 months. Caitlin Rivera M.S., F.N.P. / [id number] / [id number] / [id number] / [id number] cc: Pedrito Gutierrez M.D. [address] [place] [address] Belinda Meehan [address] [facility] [place] [address] Electronically signed by Caitlin Rivera 03-28-2005 01:43:14 PM documented i n this encounter Plan of Treatment Not on filedocumented as of this encounter Visit Diagnoses Not on filedocumented in this encounter"
--- OUTSIDE RECORDS SUMMARY | ~2019-10-17 | XMS | Encounter Summary ---
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 [facility] Sports Medicine Clinic 09/23/2006 Belinda Meehan is a 46 y.o. female PCP: CRYSTAL GUTIERREZ MD Here to discuss knees adn wants to know what can be done. Left knee is worse that the rt. She falls frequently and uncertain why. She does have sig nif myelopathy and seeing pain clinic. She was told by Dr Mroales that she needed a knee r eplacement. On his last visit on 08/26/06 . 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 She is doing PT as this point. With some benefit. She is concerned because she now has some poppin mahesh dlocking symptoms and wants to know if there si something that acid splicer be done w ith a scope to [...] (ciprofloxacin) Tramadol Morphine IM ( only in [facility] made gut pain worse 08/27/06: Trial of [...] the MRI. Ramon Ibarra M.D. Sports Medicine [facility] Orthopaedics and Rehabilitation [address] [place], [place] [address] [phone] documented in this encoun ter Plan of [...] +---------+ + + | [facility] DEPARTMENT OF | | | | [...]
--- OUTSIDE RECORDS SUMMARY | ~2019-10-17 | XMS | Encounter Summary ---
Demographics + + + | Address | [address] | | | [place] [address] | + + + | Home Phone [...] Team Providers + +------+ + | Care Veterinarian Name | Role | Phone | + +------+ + | Pedrito Gutierrez MD | PCP | | + +------+ + Encounter Details +--------+ + + + + | Date | Type | Department | Care Team | Description | +--------+ + + + + | 01/11/ | Telephone | Dig[facility]ive [facility] | Chris Padgett, | | | 2009 | | [place] [address] | [address] [facility] | | | | | [place] Mailcode: CH4S | [facility] | | | | | Center for Health | [place], [place] | | | | | and Healing, | [address] | | | | | Building | [phone] | | | | | Floor [place], [place] | | | | | | [address] | | | | | | [phone] | | | +--------+ + + + [...]
--- OUTSIDE RECORDS SUMMARY | ~2019-10-17 | XMS | Encounter Summary ---
Demographics + + + | Address | [address] | | | [place] [address] | + + + | Home Phone [...] Providers + +------+ + | Care Promotions Firm Accounts Manager Name | Role | Phone | [...] Thoracic or | [place], | [address] | | | | | lumbosacral | Carlos Armijo MD | [place], | | | | | neuritis or | [address] | [place] | | | | | | ST [place] | [address] | | | | | radiculitis, | [place], [place] | Phone: | | | | | unspecified | [address] | [phone] | | | | | Procedures | Phone: | Fax: | | | | | ME INJECT | [phone] | [phone] | | | | | ANES/STEROID | Fax: | | | | | | FORAMEN | [phone] | | | | | | LUMBAR/SACRA [...] | 01/19/ | [facility] | [facility] | Carlos Hsieh | Lumbar radiculopathy | | 2015 | Encounter | MED CTR XRAY [address] | T, [address] | primarily right | | | | [place] | [facility] [place] | | | | | [place] [address] | [address] | | | | | [phone] | | | | | | | [address], [facility] | | | | | | [...] | | | | | [place] [address] | | | | | | [phone] | | | | | | | | +--------+---------+ + + + | 12/20/ | Office | Audiology | Elisabet Munson MS | | | 2019 | Visit | | [facility] [address] | | | | | | [address] | | | | | | [place] [address] | | | | | | [phone] | | | | | | | | +--------+---------+ + + + | 12/20/ | Office | Otolaryngology | Ulysses Genao MD | | | 2020 | Visit | | [address] [place] | | | | | | [address] [place], | | | | | | [place] [address] | | | | | | [phone] | | | | | | | [...] radiculopathy ICD-9 Code 724.4 Belinda Basilio | [facility] | | Shefali presents to the fluoroscopy suite for | [facility] | | fluoroscopically-guided bilateral L5-S1 transforaminal [...] [address] | [place] | [phone] | | [facility] | | [address] | | | - IMAGING | | [...]
--- OUTSIDE RECORDS SUMMARY | ~2019-10-17 | XMS | Encounter Summary ---
Demographics + + + | Address | [address] | | | [place] [address] | + + + | Home Phone [...] Providers + +------+ + | Care Senior Engineering Team Leader Name | Role | Phone [...] + + | 03/17/ | Telephone | [facility] | Alanis, | TCM - Hosp FU | | 2017 | | MEDICINE [address] [place] [address] | MD Petrona | | | | | [facility] | [address] [place] [address] | | | | | [place] [address] | [place] [address] | | | | | [phone] | [phone] | | | | | | | [...] | | | | | [place] [address] | | | | | | [phone] | | | | | | | | +--------+---------+ + + + | 12/20/ | Office | Audiology | Elisabet Munson MS | | | 2019 | Visit | | [facility] | | | | | | [address] | | | | | | [place] [address] | | | | | | [phone] | | | | | | | | +--------+---------+ + + + | 12/20/ | Office | Otolaryngology | Ulysses Genao MD | | | 2020 | Visit | | [address] [place] | | | | | | [address] [place], | | | | | | [place] [address] | | | | | | [phone] | | | | | | | | +--------+---------+ + + + documented as of this encounter Visit Diagnoses Not on filedocumented in this encounter"
--- OUTSIDE RECORDS SUMMARY | ~2019-10-17 | XMS | Encounter Summary ---
Demographics + + + | Address | [address] | | | [place] [address] | + + + | Home Phone [...] + +------+ + | Care Supervisor Dry Cell Assembly Name | Role | Phone | [...] + + | 03/29/ | Telephone | [facility] | Alanis, | Medication Prior | | 2017 | | MEDICINE [address] [place] [address] | MD Petrona | Authorization | | | | [facility] | [address] [place] [address] | (Gabapentin ) | | | | [place] [address] | [place] [address] | | | | | [phone] | [phone] | | | | | | | [...] GABRIEL | | | | | | [place] [address] | | | | | | [phone] | | | | | | | | +--------+---------+ + + + | 12/20/ | Office | Audiology | Elisabet Munson MS | | | 2019 | Visit | | [facility] [address] | | | | | | [place] [address] [place] | | | | | | [place] [address] | | | | | | [phone] | | | | | | | | +--------+---------+ + + + | 12/20/ | Office | Otolaryngology | Ulysses Genao MD | | | 2020 | Visit | | [address] [facility] | | | | | | [address] [place], | | | | | | [place] [address] | | | | | | [phone] | | | | | | | | +--------+---------+ + + + documented as of this encounter Visit Diagnoses Not on filedocumented in this encounter"
--- OUTSIDE RECORDS SUMMARY | ~2019-10-17 | XMS | Encounter Summary ---
Demographics + + + | Address | [address] | | | [place] [address] | + + + | Home Phone [...] + +------+ + | Care Paint Line Supervisor Name | Role | Phone [...] + | 05/16/ | Office | [facility] | Alanis, | Chronic diarrhea | | 2019 | Visit | MEDICINE [address] [place] [address] | MD Petrona | (Primary Dx); | | | | [facility] | [address] [place] [address] | History of Zoe-en-Y | | | | [place] [address] | [place] [address] | gastric bypass; | | | | [phone] | [phone] | Fibromyalgia; Fatty | | | | [...] 1,000 mcg 1,000 mcg Intramuscular Q30 Days [facility] Maddie Thapa MD 1,000 mcg at 04/18/19 0955 ALLERGIES Allergies Allergen Reactions Ensure Diarrhea Food Diarrhea Lactose Yalnywvvxx-Lcl-Rvpt-Codeine Other (See Comments) Balance problems Codeine Sulfate Nausea Only Food Allergy Formula Diarrhea Ensure Levofloxacin Hives, Itching and Rash Butalbital Ropinirole Amitriptyline Hcl Other (See Comments) Confused and questionable for seizures Cgemwdazzt-Heap-Laejsvoo Rash duplicate Egucpjsdlp-Ahyi-Yraegxsa Hives and Rash Cephalexin Hives Ciprofloxacin Hives [...] 1. Parts of this documentwere created using [employer] speech recognition software. As a resu lt, [...] | | | | | [place] [address] | | | | | | [phone] | | | | | | | | +--------+---------+ + + + | 12/20/ | Office | Audiology | Elisabet Munson MS | | 2019 | Visit | | [facility] [address] | | | | | | [place] [address] [place] | | | | | | [place] [address] | | | | | | [phone] | | | | | | | | +--------+---------+ + + + | 12/20/ | Office | Otolaryngology | Ulysses Genao MD | | | 2019 | Visit | | [address] [place] | | | | | | [address] [place], | | | | | | [place] [address] | | | | | | [phone] | | | | | | | [...]
--- OUTSIDE RECORDS SUMMARY | ~2019-10-17 | XMS | Encounter Summary ---
Demographics + + + | Address | [address] | | | [place] [address] | + + + | Home Phone [...] Providers + +------+ + | Care Fisher Line Name | Role | Phone | [...] + | 05/18/ | Refill | [facility] | Alanis, | Medication Refill | | 2016 | | MEDICINE [address] [place] [address] | MD Petrona | | | | | [facility] | [address] [place] [address] | | | | | [place] [address] | [place] [address] | | | | | [phone] | [phone] | | | | | | | [...] | | | | | [place] [address] | | | | | | [phone] | | | | | | | | +--------+---------+ + + + | 12/20/ | Office | Audiology | Elisabet Munson MS | | | 2019 | Visit | | [facility] [address] | | | | | | [place] [address] [place] | | | | | | [place] [address] | | | | | | [phone] | | | | | | | | +--------+---------+ + + + | 12/20/ | Office | Otolaryngology | Ulysses Genao MD | | | 2020 | Visit | | [address] [facility] | | | | | | [address] [place], | | | | | | [place] [address] | | | | | | [phone] | | | | | | | | +--------+---------+ + + + documented as of this encounter Visit Diagnoses Not on filedocumented in this encounter"
--- OUTSIDE RECORDS SUMMARY | ~2019-10-17 | XMS | Encounter Summary ---
Demographics + + + | Address | [address] | | | [place] [address] | + + + | Home Phone [...] Team Providers + +------+ + | Care Teasel Setter Name | Role | Phone | [...] | ANP | | | | | [facility] | | | | | | [address] [place] | | | | | | Mailcode: CH15P | | | | | | [place] for [facility] | | | | | | and Healing, | | | | | | Building | | | | | | Floor [place], [place] | | | | | | [address] | | | | | | [phone] | | | +--------+ + + + [...]
--- OUTSIDE RECORDS SUMMARY | ~2019-10-17 | XMS | Encounter Summary ---
Demographics + + + | Address | [address] | | | [place] [address] | + + + | Home Phone [...] Refill Request | | 2009 | | [facility] [address] | [address] | (SUCRALFATE) | | | | [place] Mailcode: CH4S | [facility] | | | | | [facility] | [place], [place] | | | | | and Healing, | [address] | | | | | [facility] | [phone] | | | | | Floor [place], [place] | | | | | | [address] | | | | | | [phone] | | | +--------+--------+ + + + [...]
--- OUTSIDE RECORDS SUMMARY | ~2019-10-17 | XMS | Encounter Summary ---
Demographics + + + | Address | [address] | | | [place] [address] | + + + | Home Phone [...] [address] | | | | | [facility] | [place], [place] | | | | | [address] | [address] | | | | | [address] | [phone] | | | | | [facility] | | | | | | Physician's | | | | | | Pavilion [place], | | | | | | [place] [address] | | | | | | [phone] | | | +--------+--------+ + + + [...]
--- OUTSIDE RECORDS SUMMARY | ~2019-10-17 | XMS | Encounter Summary ---
Demographics + + + | Address | [address] | | | [place] [address] | + + + | Home Phone [...] Providers + +------+ + | Care Rn Hematology Name | Role | Phone | + [...] [place], | | | | | [address] [place], [place] | [place] [address] | | | | | [address] | [phone] | | | | | [phone] | | | +--------+ + + + [...] | | | | | [place] [address] | | | | | | [phone] | | | | | | | | +--------+---------+ + + + | 12/20/ | Office | Audiology | Elisabet Munson MS | | | 2019 | Visit | | [facility] [address] | | | | | | [address] [place] | | | | | | [place] [address] | | | | | | [phone] | | | | | | | | +--------+---------+ + + + | 12/20/ | Office | Otolaryngology | Ulysses Genao MD | | | 2019 | Visit | | [address] [place] | | | | | | [address] [place], | | | | | | [place] [address] | | | | | | [phone] | | | | | | | | +--------+---------+ + + + documented as of this encounter Visit Diagnoses Not on filedocumented in this encounter"
--- OUTSIDE RECORDS SUMMARY | ~2019-10-17 | XMS | Encounter Summary ---
Demographics + + + | Address | [address] | | | [place] [address] | + + + | Home Phone [...] Team Providers + +------+ + | Care Dough Mixer Helper Name | Role | Phone [...] | | | | | Encounter | [place], [place] | [place] | | | | | for | [address] | [address] | | | | | long-term | | Phone: | | | | | (current) | | [phone] | | | | | use of other | | Fax: | | | | | medications | | [phone] | | | | | LBP (low [...] 08/09/ | Office | [facility] at [facility] | Lukasz Charles, | Major depressive | | 2013 | Visit | [address] | PhD [address] | disorder, recurrent | | | | Mailcode: CH15P | [place], [place] | episode, moderate | | | | [place] for [facility] | [address] | ([facility]) (Primary Dx); | | | | and Healing, | [phone] | LBP (low back pain); | | | | | | Fibromyalgia; | | | | Floor [place], [place] | | Adjustment disorder | | | | [address] | | with anxiety | | | | [phone] | | | +--------+---------+ + + + [...] gives her a lot of motivation. Diagnosis: [place] I: 1. (296.32) Major depressive disorder, recurrent, moderate. 2. (309.24) Adjustment disorder with anxiety. [place] II: Deferred [place] III: abdominal pain, migraine headache, low back pain, fibromyalgia. [place] IV: low finances [place] V: GAF 55-60 Plan: return in 1 month. Check mood, pain, activity, stress management. Ask about any ch anges at home, taking care of her own self, sleeping. Continue cognitive/behavioral therapy . Total time spent with patient was approximately 45 minutes. LUKASZ CHARLES PHD [facility] [address] [place] [address] And [facility], [address] [place] [address] documented in this en counter Plan of [...]
--- OUTSIDE RECORDS SUMMARY | ~2019-10-17 | XMS | Encounter Summary ---
Demographics + + + | Address | [address] | | | [place] [address] | + + + | Home Phone [...] Providers + +------+ + | Care Mobility Architect Name | Role | Phone | [...] | | | | Clinical Nutrition | | | | | | [address] | [address] | | | | | Loop Mailcode: OPC5 | [phone] | | | | | Outpatient Clinic | | | | | | [facility] | | | | | | [place] [address] | | | | | | [phone] | | | +--------+ + + + [...] + + + | [facility] | [address] | [address] | | | LABORATORY | | | [...] uIU/ml | | | | | [facility] [...] + + + + + | [facility] | [address] | [place] [address] | | | LABORATORY | | | [...] + + + + + | [facility] | [address] | [place] [address] | | | LABORATORY | | | [...] | | | SERUM | performed by [place] | | | | | | St. [...] + + + | [facility] | [address] | [place] [address] | | | LABORATORY | | | [...] + + | [facility] DEPARTMENT OF | [address] | [place] [address] | | | PATHOLOGY | [address] | | | + + + + + | [facility] | [address] | [place] [address] | | | PATHOLOGY | [address] | | | + + + + + documented in this encounter Visit Diagnoses Not on filedocumented in this encounter"
--- OUTSIDE RECORDS SUMMARY | ~2019-10-17 | XMS | Encounter Summary ---
Demographics + + + | Address | [address] | | | [place] [address] | + + + | Home Phone [...] Providers + +------+ + | Care Political Cartoonist Name | Role | Phone | + [...] | 06/28/ | Office | [facility] | Delfina Molina, | LBP (Low Back Pain); | | 2007 | Visit | Pain Center at | ANP | Encounter for | | | | [facility] | | Long-Term (Current) | | | | [address] | | Use of Opioids; | | | | Mailcode: CH15P | | Arthroplasty of the | | | | [place] for [facility] | | Left Knee; Bilateral | | | | and Healing, | | Knee Pain; DJD | | | | Building | | (Degenerative Joint | | | | Floor [place], [place] | | Disease) of Knee; | | | | [address] | | Spondylosis with | | | | [phone] | | Myelopathy, Lumbar | | | [...] as working with Madeleine evans or in [facility]. Epidural steroid injections are awhile call to schedule with Dr. Kylah SHEEHAN. documented in this encounter Progress Notes Delfina Molina - 06/28/2007 8:56 AM PSTFormatting of this note might be different from th e original. 06/28/2007 Belinda Meehan is a 47 y.o. female [facility] Return Visit Chief Complaint: [...] be in bed so long. Son primary wound care specialist. Current outpatient medications Medication Sig [...] Agency 05/25/2007 4:[address] [facility] DEPARTMENT OF RADIOLOGY Component Results MR CERVICAL [...] with any concerns or questions. DELFINA MOLINA [facility] Mail code CH 4P [facility] [address] [facility] [address] Ailyn Bello 06/28/19 08 8:38 AM [...]
--- OUTSIDE RECORDS SUMMARY | ~2019-10-17 | XMS | Encounter Summary ---
Demographics + + + | Address | [address] | | | [place] [address] | + + + | Home Phone [...] Providers + +------+ + | Care Site Damage Prevention Technician Name | Role | Phone | [...] | | | | [id number] Physician's | [place], [place] | | | | | [address] | [address] | | | | | [place], [place] | [phone] | | | | | [address] | | | | | | [phone] | | | +--------+ + + + [...] + + + | [facility] | [address] | [place] [address] | | | LABORATORY | | | [...] DEPARTMENT OF | [address] | [place] [address] | | | PATHOLOGY | [address] | | | + + + + + | [facility] | [address] | [place] [address] | | | PATHOLOGY | [address] | | | + + + + + documented in this encounter Visit Diagnoses Not on filedocumented in this encounter"
--- OUTSIDE RECORDS SUMMARY | ~2019-10-17 | XMS | Encounter Summary ---
Demographics + + + | Address | [address] | | | [place] [address] | + + + | Home Phone [...] Providers + +------+ + | Care Cook Relief Name | Role | Phone | + [...] + + | 08/26/ | Telephone | [facility] | Alanis, | Headache (Adult - | | 2018 | | MEDICINE [address] | MD [place]ron[place] | Recurrent [place] Known | | | | Street [place] | [address] [facility] | Dx Migraines) | | | | [place] [address] | [place] [address] | | | | | [phone] | [phone] | | | | | | | [...] | | | | | [place] [address] | | | | | | [phone] | | | | | | | | +--------+---------+ + + + | 12/20/ | Office | Audiology | Elisabet Munson MS | | | 2019 | Visit | | [facility] [address] | | | | | | [address] [place] | | | | | | [place] [address] | | | | | | [phone] | | | | | | | | +--------+---------+ + + + | 12/20/ | Office | Otolaryngology | Ulysses Genao MD | | | 2019 | Visit | | [address] [facility] | | | | | | [address] [place], | | | | | | [place] [address] | | | | | | [phone] | | | | | | | [...]
--- OUTSIDE RECORDS SUMMARY | ~2019-10-17 | XMS | Encounter Summary ---
Demographics + + + | Address | [address] | | | [place] [address] | + + + | Home Phone [...] Providers + +------+ + | Care Sanitarian Aide Name | Role | Phone | [...] + + | 06/09/ | Telephone | [facility] INTER[facility] | Alanis, | Safety issue | | 2019 | | MEDICINE [address] [place] [address] | MD Petrona | | | | | [facility] | [address] [place] [address] | | | | | [place] [address] | [place] [address] | | | | | [phone] | [phone] | | | | | | | [...] | | | | | [place] [address] | | | | | | [phone] | | | | | | | | +--------+---------+ + + + | 12/20/ | Office | Audiology | Elisabet Munson MS | | | 2019 | Visit | | [facility] [address] | | | | | | [address] [place] | | | | | | [place] [address] | | | | | | [phone] | | | | | | | | +--------+---------+ + + + | 12/20/ | Office | Otolaryngology | Ulysses Genao MD | | | 2020 | Visit | | [address] [facility] | | | | | | [address] [place], | | | | | | [place] [address] | | | | | | [phone] | | | | | | | | +--------+---------+ + + + documented as of this encounter Visit Diagnoses Not on filedocumented in this encounter"
--- OUTSIDE RECORDS SUMMARY | ~2019-10-17 | XMS | Encounter Summary ---
Demographics + + + | Address | [address] | | | [place] [address] | + + + | Home Phone [...] Team Providers + +------+ + | Care Course Instructor Name | Role | Phone | [...] | | | | | Procedures | [address] | | | | | | CONSULT TO | [address]ovacs | | | | | | NEUROLOGY | [place], [place] | | | | | | | [address] | | +--------+--------+ + + + + Reason for Visit + + + | Reason | Comments | + + + | Back pain | | + + + Encounter Details +--------+---------+ + + + | Date | Type | Department | Care Team | Description | +--------+---------+ + + + | 10/03/ | Office | [facility] Comprehensive | Miranda Lambert, | Falling; | | 2009 | Visit | Pain Center at | ANP | Fibromyalgia; LBP | | | | [facility] | | (low back pain); | | | | [address] | | Encounter for | | | | Mailcode: CH15P | | Long-Term (Current) | | | [facility] | | Use of Opioids; | | | | and Healing, | | Hypothyroidism; | | | | | | Metabolic syndrome X | | | | Floor [place], [place] | | 250.80; Major | | | | [address] | | depressive disorder, | | | | [phone] | | recurrent episode, | | | [...] Schedule an appointment with Dr. Cesar SHEEHAN [facility] Neurology - If you continue to [...] Belinda Meehan is a 49 y.o. female [facility] Comprehensive [...] drawing has be completed, which I reviewed. [facility] Brief Pain Inventory: (ten= worst possible [...] it no help 4. Dr. Ricky SHEEHAN [facility] spine did spine surgery last seen [...] 08/2007 right knee Hx lumbar fusion 05/2008 [id number] with bone spur removals Hx appendectomy Hx cholecystectomy Hx section Hx hysterectomy Gastric bypass aMyra Padgett wt 278 01/18 Paniculectomy Family History Problem Relation Cancer Mother Heart Father Additional Family History Father Migraine Additional Family History Mother Migraine Taniya Guerrero MD [facility] Neurology 2007 evaluation of migraines: Impression: [...] the names of 3 headache specialists in [place]- Dr. Koby García, Dr. Dakota Sweet and [...] a neurologist Dr. Taniya Guerrero here at [facility] at that time headaches were due to medication rebound with senior care use of opioids and m igraine abortive [...] and there is no evidence to support senior care benefit of opioids for this pa in [...] to schedule a follow up appointment with [facility] neurologists Dr. Guerrero, for falls workup. [...] to taper off gabapentin 2. Order for [facility] neurology Dr. Taniya Guerrero if falls [...] [facility] Mail code CH 4P [facility] [address] [place] [address] Ailyn Foster 1:03 PM PDTCMA History: [...]
--- OUTSIDE RECORDS SUMMARY | ~2019-10-17 | XMS | Encounter Summary ---
Demographics + + + | Address | [address] | | | [place] [address] | + + + | Home Phone [...] Team Providers + +------+ + | Care Lot Attendant Name | Role | Phone [...] | | MD [address] | [place] [address] | | | | | | [address] | Phone: | | | | | | [place], | [phone] | | | | | | [place] | Fax: | | | | | | [address] | [phone] | | | | | | Phone: | | | | | | | [phone] | | | | | | | Fax: | | | | | | | [phone] | | +--------+ + + + + + Reason for Visit + + + | Reason | Comments | + + + | Medication Question | | + + + Encounter Details +--------+ + + + + | Date | Type | Department | Care Team | Description | +--------+ + + + + | 08/13/ | Telephone | [facility] | Alanis, | Medication Question | | 2018 | | MEDICINE [address] [place] [address] | MD Petrona | | | | | [facility] | [address] [place] [address] | | | | | [place] [address] | [place] [address] | | | | | [phone] | [phone] | | | | | | | [...] | | | | [address] [facility] | | | | | | [place] [address] | | | | | | [phone] | | | | | | | | +--------+---------+ + + + | 12/20/ | Office | Audiology | Elisabet Munson MS | | | 2019 | Visit | | [facility] [address] | | | | | | [address] | | | | | | [place] [address] | | | | | | [phone] | | | | | | | | +--------+---------+ + + + | 12/20/ | Office | Otolaryngology | Ulysses Genao MD | | | 2019 | Visit | | [address] [place] | | | | | | [address] [place], | | | | | | [place] [address] | | | | | | [phone] | | | | | | | [...]
--- OUTSIDE RECORDS SUMMARY | ~2019-10-17 | XMS | Encounter Summary ---
Demographics + + + | Address | [address] | | | [place] [address] | + + + | Home Phone [...] + + | 02/17/ | Clinical | [facility] | Alanis, | Vitamin B12 | | 2017 | Support | MEDICINE [address] [place] [address] | MD Petrona | deficiency | | | | [facility] | [address] [place] [address] | | | | | [place] [address] | [place] [address] | | | | | [phone] | [phone] | | | | | | | [...] | | | | | [place] [address] | | | | | | [phone] | | | | | | | | +--------+---------+ + + + | 12/20/ | Office | Audiology | Elisabet Munson MS | | | 2019 | Visit | | [facility] [address] | | | | | | [address] [place] | | | | | | [place] [address] | | | | | | [phone] | | | | | | | | +--------+---------+ + + + | 12/20/ | Office | Otolaryngology | Ulysses Genao MD | | | 2019 | Visit | | [address] | | | | | | [address] [place], | | | | | | [place] [address] | | | | | | [phone] | | | | | | | [...] | | First dose on [facility] 10/15/17 at 1215 | | | [...]
--- OUTSIDE RECORDS SUMMARY | ~2019-10-17 | XMS | Encounter Summary ---
Demographics + + + | Address | [address] | | | [place] [address] | + + + | Home Phone [...] Providers + +------+ + | Care Vehicle Service Agent Name | Role | Phone [...] + | 01/12/ | Refill | [facility] | Alanis, | Medication Refill | | 2017 | | MEDICINE [address] [place] [address] | MD Petrona | | | | | [facility] | [address] [place] [address] | | | | | [place] [address] | [place] [address] | | | | | [phone] | [phone] | | | | | | | [...] | | | | | [place] [address] | | | | | | [phone] | | | | | | | | +--------+---------+ + + + | 12/20/ | Office | Audiology | Elisabet Munson MS | | | 2019 | Visit | | [facility] [address] | | | | | | [place] [address] [place] | | | | | | [place] [address] | | | | | | [phone] | | | | | | | | +--------+---------+ + + + | 12/20/ | Office | Otolaryngology | Ulysses Genao MD | | | 2020 | Visit | | [address] [facility] | | | | | | [address] [place], | | | | | | [place] [address] | | | | | | [phone] | | | | | | | | +--------+---------+ + + + documented as of this encounter Visit Diagnoses Not on filedocumented in this encounter"
--- OUTSIDE RECORDS SUMMARY | ~2019-10-17 | XMS | Encounter Summary ---
Demographics + + + | Address | [address] | | | [place] [address] | + + + | Home Phone [...] Team Providers + +------+ + | Care Reinsurance Claims Analyst Name | Role | Phone | [...] | | | | L223A Physician's | [place], [place] | | | | | [address] | [address] | | | | | [place], [place] | [phone] | | | | | [address] | | | | | | [phone] | | | +--------+ + + + [...] DEPARTMENT OF | [address] | [place] [address] | | | PATHOLOGY | [address] | | | + + + + + | [facility] DEPARTMENT OF | [address] | [place] [address] | | | PATHOLOGY | [address] [...] [facility] | [address] | [place] [address] | | | PATHOLOGY | [address] | | | + + + + + | [facility] | [address] | [place] [address] | | | PATHOLOGY | [address] | | | + + + + + documented in this encounter Visit Diagnoses Not on filedocumented in this encounter"
--- OUTSIDE RECORDS SUMMARY | ~2019-10-17 | XMS | Encounter Summary ---
Demographics + + + | Address | [address] | | | [place] [address] | + + + | Home Phone [...] Providers + +------+ + | Care Bilingual Customer Service Name | Role | Phone | [...] | [address] | [place], [place] | | | | | [place], [place] | [address] | | | | | [address] | | | | | | [phone] | | | +--------+ + + + [...] | | | | | [place] [address] | | | | | | [phone] | | | | | | | | +--------+---------+ + + + | 12/20/ | Office | Audiology | Elisabet Munson MS | | | 2019 | Visit | | [facility] [address] | | | | | | [address] [place] | | | | | | [place] [address] | | | | | | [phone] | | | | | | | | +--------+---------+ + + + | 12/20/ | Office | Otolaryngology | Ulysses Genao MD | | | 2019 | Visit | | [address] | | | | | | [address] [place], | | | | | | [place] [address] | | | | | | [phone] | | | | | | | | +--------+---------+ + + + documented as of this encounter Visit Diagnoses Not on filedocumented in this encounter"
--- OUTSIDE RECORDS SUMMARY | ~2019-10-17 | XMS | Encounter Summary ---
Demographics + + + | Address | [address] | | | [place] [address] | + + + | Home Phone [...] Providers + +------+ + | Care Sand Mixer Machine Name | Role | Phone | [...] | Registratio | [facility] | [address] | | | | n | [place] Mailcode: RPB07 | [place], [place] | | | | | [place], [place] | [address] | | | | | [address] | [phone] | | | | | [phone] | | | +--------+ + + + [...] + | [facility] | [address] | [place] [address] | | | LABORATORY | | | [...] | [facility] | [address] [facility] | [place] [address] | | | PATHOLOGY | [address] | | | + + + + + | [facility] | [address] | [place] [address] | | | PATHOLOGY | [address] [...] [facility] DEPARTMENT OF | [address] | [place] [address] | | | PATHOLOGY | [address] | | | + + + + + | [facility] DEPARTMENT OF | [address] | [place] [address] | | | PATHOLOGY | [address] [...] [facility] DE[facility] | [address] | [place] [address] | | | PATHOLOGY | [address] | | | + + + + + | [facility] DEPARTMENT OF | [address] | [place] [address] | | | PATHOLOGY | [address] | | | + + + + + documented in this encounter Visit Diagnoses Not on filedocumented in this encounter"
--- OUTSIDE RECORDS SUMMARY | ~2019-10-17 | XMS | Encounter Summary ---
Demographics + + + | Address | [address] | | | [place] [address] | + + + | Home Phone [...] Team Providers + +------+ + | Care Extrusion Bender Name | Role | Phone | + [...] | | | | FAMILY | Rd [place], | | | | | | MEDICINE | [place] | | | | | | [address] | [address] | | | | | | [address] | Phone: | | | | | | [place], | [phone] | | | | | | [place] [address] | Fax: | | | | | | Phone: | [phone] | | | | | | [phone] | | | | | | | Fax: | | | | | | | [phone] | | +--------+--------+ + + + + [...] | (Primary Dx) | | | | [facility] | [place], [place] | | | | | and Healing, | [address] | | | | | [facility] | [phone] | | | | | Floor [place], [place] | | | | | | [address] | | | | | | [phone] | | | +--------+---------+ + + + [...] surgery. She is being followe d with [facility] providers for metabolic syndrome and hypothyroidism - Dr. Meeks, emotional issue s - Dr. Lukasz Ogden, and her PCP in [place]. She has sx of stress urinary incontinence [...] treated. She would like a urology or LABORER BRUSH CLEARING referral as appropriate. Labs ordered. See in [...] [address] | | | | | | [place] [address] | | | | | | [phone]. | | | | | | Sincere [...] REG | [address] | [place], [place] | | | [facility] | | [address] | | + + + + + [...] | pg/mL | | | | | [facility]. | | | | + + + + + + + + | Specimen | + + | | + + + + + + + | Performing | Address | City/State/Zipcode | Phone Number | | Organization | | | | + + + + + | [facility] | [address] | [place] [address] | | | LABORATORY | | | [...] ([address] [facility]) | | | [facility] [place] [address] | | | [place] [address] | | + + + + + + + + | Performing | Address | City/State/Zipcode | Phone Number | | Organization | | | | + + + + + | [facility] | [address] | [place] [address] | | | LABORATORY | | | [...] ([address] [facility]) | | | [facility] [place] [address] | | | [place] [address] | | + + + + + + + + | Performing | Address | City/State/Zipcode | Phone Number | | Organization | | | | + + + + + | [facility] | [address] | [place] [address] | | | LABORATORY | | | [...] Performed At | + + + | [address] Estimated GFR > 60 mL/min/1.73 sq m if non- | [facility] | | [address] Estimated GFR > 60 mL/min/1.73 sq m [...] [facility] DEPARTMENT OF | [address] [facility] | [place] [address] | | | PATHOLOGY | [address] | | | + + + + + | [facility] DEPARTMENT OF | [address] [facility] | [place] [address] | | | PATHOLOGY | [address] [...] + | [facility] | [address] [facility] | [place] [address] | | | PATHOLOGY | [address] | | | + + + + + | [facility] | [address] [facility] | [place] [address] | | | PATHOLOGY | [address] | | | + + + + + documented in this encounter Visit Diagnoses + + | Diagnosis | + + | Status post bariatric surgery - Primary Bariatric surgery status | + + documented in this encounter"
--- OUTSIDE RECORDS SUMMARY | ~2019-10-17 | XMS | Encounter Summary ---
Demographics + + + | Address | [address] | | | [place] [address] | + + + | Home Phone [...] Providers + +------+ + | Care Manager Transportation Name | Role | Phone | + +------+ + | Sulaiman Carrera MD | PCP | | + +------+ + Encounter Details +--------+ + + + + | Date | Type | Department | Care Team | Description | +--------+ + + + + | 10/05/ | Ancillary | Registration [address] | Ramon Ibarra, | | | 2006 | Registratio | [facility] Naeem Mcrae | [address] [facility] | | | | [address] | [address] Mailcode: RPB07 | [place], [place] | | | | | [place], [place] | [address] | | | | | [address] | [phone] | | | | | [phone] | | | +--------+ + + + [...]
--- OUTSIDE RECORDS SUMMARY | ~2019-10-17 | XMS | Encounter Summary ---
Demographics + + + | Address | [address] | | | [place] [address] | + + + | Home Phone [...] Providers + +------+ + | Care Manual Training Teacher Name | Role | Phone | + +------+ + | Petrona Thapa | PCP | | | MD | | | + +------+ + Encounter Details +--------+---------+ + + + | Date | Type | Department | Care Team | Description | +--------+---------+ + + + | 12/20/ | Office | [facility] | Elisabet Munson MS | Sensorineural | | 2019 | Visit | AUDIOLOGY AND | [facility] [address] | hearing loss (SNHL) | | | | [facility] | [address] [place] | of both ears | | | | [address] | [place] [address] | (Primary Dx); | | | | [address] [place] | [phone] | Dizziness and | | | | [place] [address] | | giddiness | | | | [phone] | | | +--------+---------+ + + + [...] | | | | | | [address] [place] [address] [place] | | | | | | [place] [address] | | | | | | [phone] | | | | | | | | +--------+---------+ + + + | 12/20/ | Office | Audiology | Elisabet Munson MS | | | 2019 | Visit | | [facility] [address] | | | | | | [address] [place] | | | | | | [place] [address] | | | | | | [phone] | | | | | | | | +--------+---------+ + + + | 12/20/ | Office | Otolaryngology | Ulysses Genao MD | | | 2019 | Visit | | [address] | | | | | | [address] [place], | | | | | | [place] [address] | | | | | | [phone] | | | | | | | [...]
--- OUTSIDE RECORDS SUMMARY | ~2019-10-17 | XMS | Encounter Summary ---
Demographics + + + | Address | [address] | | | [place] [address] | + + + | Home Phone [...] Team Providers + +------+ + | Care Brand Development Manager Name | Role | Phone [...] + | 09/30/ | Refill | [facility] | Alanis, | Medication Refill | | 2018 | | MEDICINE [address] [place] [address] | MD Petrona | | | | | [facility] | [address] [place] [address] | | | | | [place] [address] | [place] [address] | | | | | [phone] | [phone] | | | | | | | [...] | | | | | [place] [address] | | | | | | [phone] | | | | | | | | +--------+---------+ + + + | 12/20/ | Office | Audiology | Elisabet Munson MS | | | 2019 | Visit | | [facility] [address] | | | | | | [place] [address] [place] | | | | | | [place] [address] | | | | | | [phone] | | | | | | | | +--------+---------+ + + + | 12/20/ | Office | Otolaryngology | Ulysses Genao MD | | | 2020 | Visit | | [address] [facility] | | | | | | [address] [place], | | | | | | [place] [address] | | | | | | [phone] | | | | | | | | +--------+---------+ + + + documented as of this encounter Visit Diagnoses Not on filedocumented in this encounter"
--- OUTSIDE RECORDS SUMMARY | ~2019-10-17 | XMS | Encounter Summary ---
Demographics + + + | Address | [address] | | | [place] [address] | + + + | Home Phone [...] Providers + +------+ + | Care Honey Liquefier Name | Role | Phone | + [...] Pavilion | | | | | | [place], [place] | | | | | | [address] | | | | | | [phone] | | | +--------+ + + + [...]
--- OUTSIDE RECORDS SUMMARY | ~2019-10-17 | XMS | Encounter Summary ---
Demographics + + + | Address | [address] | | | [place] [address] | + + + | Home Phone [...] Providers + +------+ + | Care Director Intelligence Analysis Programs Name | Role | Phone | + [...] 2005 | Activity | TRACE Wilson MD [address] | | | | | [address] Mailcode: RPB07 | [place], [place] | | | | | [place] | [address] | | | | | [address] | [phone] | | | | | [phone] | | | +--------+ + + + [...] M.D./PathologistT:04/06/ | | | | | | 06:[facility] I have reviewed | | | | [...] + | [facility] | [address] | [place] [address] | | | PATHOLOGY | [address] | | | + + + + + | [facility] DEPARTMENT OF | [facility] | [place] [address] | | | PATHOLOGY | [address] | | | + + + + + documented in this encounter Visit Diagnoses Not on filedocumented in this encounter"
--- OUTSIDE RECORDS SUMMARY | ~2019-10-17 | XMS | Encounter Summary ---
Demographics + + + | Address | [address] | | | [place] [address] [...] + + + + | 03/02/ | [facility] | [facility] | Alanis, | Neck pain on right | | 2018 | Encounter | [facility] | MD Petrona | side | | | | [address] [place] | [address] [place] | | | | | [place], [place] | [place] [address] | | | | | [address] | [phone] | | | | | [phone] | | | +--------+ + + + [...] | | | | | [place] [address] | | | | | | [phone] | | | | | | | | +--------+---------+ + + + | 12/20/ | Office | Audiology | Elisabet Munson MS | | | 2019 | Visit | | [facility] [address] | | | | | | [place] [address] [place] | | | | | | [place] [address] | | | | | | [phone] | | | | | | | | +--------+---------+ + + + | 12/20/ | Office | Otolaryngology | Ulysses Genao MD | | | 2020 | Visit | | [address] [facility] | | | | | | [address] [place], | | | | | | [place] [address] | | | | | | [phone] | | | | | | | [...]
--- OUTSIDE RECORDS SUMMARY | ~2019-10-17 | XMS | Encounter Summary ---
[...] Providers + +------+ + | Care House Moving Supervisor Name | Role | Phone | [...] | | | | [address] | [facility] | | | | | Mailcode: Center | [place] [address] | | | | | for Health and | [phone] | | | | | Healing, [address] | | | | | | [place], [place] | | | | | | [address] | | | | | | [phone] | | | +--------+ + + + [...]
--- OUTSIDE RECORDS SUMMARY | ~2019-10-17 | XMS | Encounter Summary ---
Demographics + + + | Address | [address] | | | [place] [address] | + + + | Home Phone [...] Providers + +------+ + | Care County Administrator Name | Role | Phone | [...] | Osteopenia | | 2006 | | [place] [address] | [address] [facility] | | | | | [place] Mailcode: CH4S | [address] | | | | | [facility] | [place], [place] | | | | | and Healing, | [address] | | | | | [facility] | [phone] | | | | | Floor [place], [place] | | | | | | [address] | | | | | | [phone] | | | +--------+ + + + [...]
--- OUTSIDE RECORDS SUMMARY | ~2019-10-17 | XMS | Encounter Summary ---
Demographics + + + | Address | [address] | | | [place] [address] | + + + | Home Phone [...] Providers + +------+ + | Care Etl Data Architect Name | Role | Phone | [...] | Neurology | Diagnoses | [place], | [place], | | | | | Migraine | NIHARIKA Jean | Merari Lopez MD | | | | | headache | [address] | | | | | | Procedures | Mychal [address]ovacs | | | | | | CONSULT TO | [place], [place] | | | | | | NEUROLOGY | [address] | | +--------+--------+ + + + + [...] | (Primary Dx); | | | | [facility] | | Migraine Headache; | | | | [address] | | Opioid Dependence, | | | | Mailcode: CH15P | | Continuous (HCC); | | | [facility] | | Neck Pain; Right | | | | and Healing, | | shoulder rotator | | | | Building | | cuff strain; | | | | Floor [facility] [place] | | 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 Schedule Neurology evaluation [facility] order placed for Dr. Merari [...] car. She has not been seeing the [facility] PT , await ing the surgical plan for her left knee. MRI done, ordered by Dr. Ibarra who referred to Dr. Angel Morales for surgical opinion, scheduled for 10/28/06. She continues to see Dr. Alin adames at [facility] and reports benefit and would like to nelly salude she has two more scheduled visits. She reports Dr. Woodson referred her to neurologist locally for her migraine assessment how ever not being scheduled due to insurance [place] barriers. She is interested in being referred to a Dr. Merari Mittal [facility] neurlogy whom she has heard works [...] Collection Time Resulting Agency 10/05/2006 9:20 AM [facility] DEPARTMENT OF RADIOLOGY Component Results [...] the free margin and undersurface of the biofuels plant superintendent horn of the medial meniscus suspicious for [...] the left knee 3. Schedule Neurology evaluation [facility] order placed for Dr. Merari Mittal MD 4. Follow up 11/11/06 to reivew pain management 5. Cntinue with PT and psychology as scheduled DELFINA MOLINA [facility] Mail code CH 4P [address] [address] iAgustin maciasndy - 10/23 12:47 [...]
--- OUTSIDE RECORDS SUMMARY | ~2019-10-17 | XMS | Encounter Summary ---
Demographics + + + | Address | [address] | | | [place] [address] | + + + | Home Phone [...] Providers + +------+ + | Care Pipe Organ Mechanic Apprentice Name | Role | Phone [...] + | 06/16/ | Clinical | [facility] | Alanis, | B12 deficiency | | 2020 | Support | MEDICINE [address] [place] [address] | MD Petrona | (Primary Dx) | | | | [facility] | [address] [place] [address] | | | | | [place] [address] | [place] [address] | | | | | [phone] | [phone] | | | | | | | [...] of this encounter Progress Notes Shanta Whaley, Transitional Living Specialist - 06/16/2019 10:30 AM PSTFormatting of this note calderon ht be different from the original. Administrations This Visit cyanocobalamin (VITAMIN B-12) injection 1,000 mcg Admin Date 06/16/2019 Action Given Dose 1000 mcg Route Intramuscular Administered By Shanta Whaley Transitional Living Specialist Patient tolerated injection well, advised to schedule [...] | | | | | [place] [address] | | | | | | [phone] | | | | | | | | +--------+---------+ + + + | 07/08/ | Office | Audiology | Elisabet Munson | | | 2019 | Visit | | [facility] [address] | | | | [address] [place] | | | | | | [place] [address] | | | | | | [phone] | | | | | | | | +--------+---------+ + + + | 12/20/ | Office | Otolaryngology | Ulysses Genao MD | | | 2019 | Visit | | [address] | | | | | | [address] [place], | | | | | | [place] [address] | | | | | | [phone] | | | | | | | [...]
--- OUTSIDE RECORDS SUMMARY | ~2019-10-17 | XMS | Encounter Summary ---
Demographics + + + | Address | [address] | | | [place] [address] | + + + | Home Phone [...] Providers + +------+ + | Care Storage Facility Rental Clerk Name | Role | Phone [...] + | 03/04/ | Telephone | [facility] | Alanis, | Fever | | 2018 | | MEDICINE [address] [place] [address] | MD Petrona | | | | | [facility] | [address] [place] [address] | | | | | [place] [address] | [place] [address] | | | | | [phone] | [phone] | | | | | | | [...] Petrona | | | | | | [facility] [address] [place] | | | | | | [place] [id number] | | | | | | [phone] | | | | | | | | +--------+---------+ + + + | 12/20/ | Office | Audiology | Elisabet Munson MS | | | 2019 | Visit | | [facility] [address] | | | | | | [place] [address] [place] | | | | | | [place] [id number] | | | | | | [phone] | | | | | | | | +--------+---------+ + + + | 12/20/ | Office | Otolaryngology | Ulysses Genao MD | | | 2019 | Visit | | [address] [facility] | | | | | | [address] [place], | | | | | | [place] [id number] | | | | | | [phone] | | | | | | | | +--------+---------+ + + + documented as of this encounter Visit Diagnoses Not on filedocumented in this encounter"
--- OUTSIDE RECORDS SUMMARY | ~2019-10-17 | XMS | Encounter Summary ---
Demographics + + + | Address | [address] | | | [place] [address] | + + + | Home Phone [...] Providers + +------+ + | Care Financial Advisor Name | Role | Phone | [...] | | | | Clinical Nutrition | [place], [place] | | | | | [address] | [address] | | | | | Loop Mailcode: OPC5 | [phone] | | | | | Outpatient Clinic | | | | | | [facility] | | | | | | [place] [address] | | | | | | [phone] | | | +--------+ + + + [...] + + + | [facility] | [address] | [place] [address] | | | LABORATORY | | | [...] + + + | [facility] | [address] | [place] [address] | | | LABORATORY | | | [...] Blood Test performed by | | | [facility]. | | + + + + + + + + | Performing | Address | City/State/Zipcode | Phone Number | | Organization | | | | + + + + + | [facility] | [address] | [place] [address] | | | LABORATORY | | | | + + + + + documented in this encounter Visit Diagnoses Not on filedocumented in this encounter"
--- OUTSIDE RECORDS SUMMARY | ~2019-10-17 | XMS | Encounter Summary ---
Demographics + + + | Address | [address] | | | [place] [address] | + + + | Home Phone [...] [id number] | | | | | | [place], [place] | | | | | | [address] | | | | | | [phone] | | | +--------+--------+ + + + [...]
--- OUTSIDE RECORDS SUMMARY | ~2019-10-17 | XMS | Encounter Summary ---
Demographics + + + | Address | [address] | | | [place] [address] | + + + | Home Phone [...] Providers + +------+ + | Care Animal Attendant Name | Role | Phone | [...] + + | 09/13/ | Telephone | [facility] | Alanis, | Appointment | | 2019 | | MEDICINE [address] [place] [address] | MD Petrona | | | | | [facility] | [address] [place] [address] | | | | | [place] [address] | [place] [address] | | | | | [phone] | [phone] | | | | | | | [...] | | | | | [place] [address] | | | | | | [phone] | | | | | | | | +--------+---------+ + + + | 12/20/ | Office | Audiology | Elisabet Munson MS | | | 2020 | Visit | | [facility] [address] | | | | | | [address] [place] [address] [place] | | | | | | [place] [address] | | | | | | [phone] | | | | | | | | +--------+---------+ + + + | 12/20/ | Office | Otolaryngology | Ulysses Genao MD | | | 2020 | Visit | | [address] | | | | | | [address] [place], | | | | | | [place] [address] | | | | | | [phone] | | | | | | | | +--------+---------+ + + + documented as of this encounter Visit Diagnoses Not on filedocumented in this encounter"
--- OUTSIDE RECORDS SUMMARY | ~2019-10-17 | XMS | Encounter Summary ---
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 female [facility] Comprehensive Pain Center Return [...] drawing has be completed, which I reviewed. TECHNICAL ARTIST Brief Pain Inventory: Right Now: 9 Least [...] Physical therapy: Two days per week in [place] knees and both legs, shoulders and back [...] social history. Pending 08/30/07 DR Cadet in [facility]: right knee arthroplasty. Urology evaluation for ur [...] Time Resulting Agency 05/25/2007 4:06 PM [facility] DEPARTMENT OF RADIOLOGY Component [...] HOSPITAL PAIN CENTER Mail code CH 4P [facility] [address] [facility] [address] Ailyn Bello 08/13/19 08 [...]
--- OUTSIDE RECORDS SUMMARY | ~2019-10-17 | XMS | Encounter Summary ---
Demographics + + + | Address | [address] | | | [place] [address] | + + + | Home Phone [...] Providers + +------+ + | Care Cylinder Press Feeder Name | Role | Phone | [...] + + | 01/04/ | Telephone | [facility] | Alanis, | Skin Irritation | | 2017 | | MEDICINE [address] [place] [address] | MD Petrona | | | | | [facility] | [address] [place] [address] | | | | | [place] [address] | [place] [address] | | | | | [phone] | [phone] | | | | | | | [...] | | | | | [place] [address] | | | | | | [phone] | | | | | | | | +--------+---------+ + + + | 12/20/ | Office | Audiology | Elisabet Munson MS | | | 2019 | Visit | | [facility] [address] | | | | | | [address] [place] [address] [place] | | | | | | [place] [address] | | | | | | [phone] | | | | | | | | +--------+---------+ + + + | 12/20/ | Office | Otolaryngology | Ulysses Genao MD | | | 2020 | Visit | | [address] | | | | | | [address] [place], | | | | | | [place] [address] | | | | | | [phone] | | | | | | | | +--------+---------+ + + + documented as of this encounter Visit Diagnoses + + | Diagnosis | + + | Tinea cruris - Primary Dermatophytosis of groin and perianal area | + + documented in this encounter"
--- OUTSIDE RECORDS SUMMARY | ~2019-10-17 | XMS | Encounter Summary ---
Demographics + + + | Address | [address] | | | [place] [address] | + + + | Home Phone [...] Team Providers + +------+ + | Care Show Host Or Hostess Name | Role | Phone | + [...] + | 06/29/ | Telephone | [facility] | Alanis, | Illness | | 2018 | | MEDICINE [address] [place] [address] | MD Petrona | | | | | [facility] | [address] [place] [address] | | | | | [place] [address] | [place] [address] | | | | | [phone] | [phone] | | | | | | | [...] | | | | | [place] [address] | | | | | | [phone] | | | | | | | | +--------+---------+ + + + | 12/20/ | Office | Audiology | Elisabet Munson MS | | | 2019 | Visit | | [facility] [address] | | | | | | [place] [address] [place] | | | | | | [place] [address] | | | | | | [phone] | | | | | | | | +--------+---------+ + + + | 12/20/ | Office | Otolaryngology | Ulysses Genao MD | | | 2020 | Visit | | [address] [facility] | | | | | | [address] [place], | | | | | | [place] [address] | | | | | | [phone] | | | | | | | | +--------+---------+ + + + documented as of this encounter Visit Diagnoses Not on filedocumented in this encounter"
--- OUTSIDE RECORDS SUMMARY | ~2019-10-17 | XMS | Encounter Summary ---
Demographics + + + | Address | [address] | | | [place] [address] | + + + | Home Phone [...] Team Providers + +------+ + | Care Scalemaker Name | Role | Phone | + [...] + + | 06/24/ | Telephone | [facility] | Alanis, | Medication Orders | | 2018 | | MEDICINE [address] [place] [address] | MD Petrona | | | | | [facility] | [address] [place] [address] | | | | | [place] [address] | [place] [address] | | | | | [phone] | [phone] | | | | | | | [...] | | | [address] [facility] | | | | | | [place] [address] | | | | | | [phone] | | | | | | | | +--------+---------+ + + + | 12/20/ | Office | Audiology | Elisabet Munson MS | | | 2019 | Visit | | [facility] [address] | | | | | | [address] | | | | | | [place] [address] | | | | | | [phone] | | | | | | | | +--------+---------+ + + + | 12/20/ | Office | Otolaryngology | Ulysses Genao MD | | | 2020 | Visit | | [address] [facility] | | | | | | [address] [place], | | | | | | [place] [address] | | | | | | [phone] | | | | | | | | +--------+---------+ + + + documented as of this encounter Visit Diagnoses Not on filedocumented in this encounter"
--- OUTSIDE RECORDS SUMMARY | ~2019-10-17 | XMS | Encounter Summary ---
Demographics + + + | Address | [address] | | | [place] [address] | + + + | Home Phone [...] Providers + +------+ + | Care Hand Gluer And Slicer Name | Role | Phone | + +------+ + | Pedrito Gutierrez MD | PCP | | + +------+ + Encounter Details +--------+ + + + + | Date | Type | Department | Care Team | Description | +--------+ + + + + | 12/26/ | Telephone | [facility] | Lukasz Ogden, | | | 2007 | | Pain Center at | PhD [address] | | | | | [facility] | [place], [place] | | | | | [address] | [address] | | | | | Mailcode: CH15P | [phone] | | | | | [facility] | | | | | | and [place], | | | | | | Building | | | | | | [place], [place] | | | | | | [address] | | | | | | [phone] | | | +--------+ + + + [...]
--- OUTSIDE RECORDS SUMMARY | ~2019-10-17 | XMS | Encounter Summary ---
Demographics + + + | Address | [address] | | | [place] [address] | + + + | Home Phone [...] Providers + +------+ + | Care Computer Graphic Designer Name | Role | Phone | [...] as of this encounter Progress Notes Interface, Matrix Supervisor In - 01/03/2006 3:02 AM PDTCLINIC DATE: 11/01/2002 NEUROMUSCULAR CLINIC PRIMARY CARE PROVIDER: Pedrito Gutierrez M.D. OTHER PHYSICIAN: Issac Meeks M.D., [facility] Endocrinology. PROBLEM LIST 1. Fibromyalgia and [...] fatigue. She reportedly has begun walking with [place] crutches much of the time due to [...] Irving Pete M.D. Neurology/Neuromuscular Fellow TBD / [id number] / [id number] / [id number] / [id number] C: 11/10/2002 BRAD cc: Issac Meeks M.D. [facility] Endocrinology Pedrito Gutierrez M.D. [address] [place], [place] [id number] signed by Interface, Matrix Supervisor In at 01/03/2006 3:0 2 AM PDTdocumented in this encounter Plan of Treatment Not on filedocumented as of this encounter Visit Diagnoses Not on filedocumented in this encounter
--- OUTSIDE RECORDS SUMMARY | ~2019-10-17 | XMS | Encounter Summary ---
Demographics + + + | Address | [address] | | | [place] [address] | + + + | Home Phone [...] Providers + +------+ + | Care Utility Tender Carding Name | Role | Phone | + [...] Floor | | | | | | [place], [place] | | | | | | [address] | | | | | | [phone] | | | +--------+ + + + [...] No: | | | | | | [id number] Name: | | | | | | BELINDA MEEHAN | | | | | | Birthday: 1960 | | | | | | Sex: F | | | | | | Alias:Patient Location: | | | | | | [id number]: Outpatient | | | | | | ActiveOrdering | | | | | | Physician: JOSÉ MIGUEL | | | | | | MARYSOL MORENO SCAPULA | | | | | | COMPLETE completed on | | | | | | 01/01/2009 11:55 | | | | | | AMAccession # | | | | | | [id number] | | | | | | SCAPULA [...]
--- OUTSIDE RECORDS SUMMARY | ~2019-10-17 | XMS | Encounter Summary ---
Demographics + + + | Address | [address] | | | [place] [address] | + + + | Home Phone [...] Providers + +------+ + | Care Screen Machine Operator Name | Role | Phone [...] | | [facility] | [address] [facility] | | | | | [facility] | [address] [place], | | | | | [address] | [place] [address] | | | | | [address] | [phone] | | | | | Physician's | | | | | | Pavilion, 1st floor | | | | | | [place], [place] | | | | | | [address] | | | | | | [phone] | | | +--------+ + + + [...] | | + +---------+--------+ + + | [place] DXA BONE | Imaging | Routin | [...]
--- OUTSIDE RECORDS SUMMARY | ~2019-10-17 | XMS | Encounter Summary ---
Demographics + + + | Address | [address] | | | [place] [address] | + + + | Home Phone [...] Providers + +------+ + | Care Laborer Vineyard Name | Role | Phone | + [...] | | | | | | Mailcode: [facility] | | | | | | | [facility] Center | | | | | | | for Health | | | | | | | and Healing, | | | | | | | Building [address] | | | | | | | [facility] [place] | | | | | | | [address] | | | | | | | Phone: | | | | | | | [phone] | | | | | | | Fax: | | | | | | | [phone] | +--------+--------+ + + + + Encounter Details +--------+ + + + + | Date | Type | Department | Care Team | Description | +--------+ + + + + | 09/14/ | Hospital | [facility] GI PROCEDURE | Olivia, | | | 2008 | Encounter | [address] | MD Pedrito | | | | | Bethanie Mailcode: [facility] | | | | | | [facility] | | | | | | Health and Healing, | | | | | | [address] | | | | | | [facility] [place] | | | | | | [address] | | | | | | [phone] | | | +--------+ + + + [...] Discharge Instructions Instructions Marleen Hogan - 09/14/2008 [facility] [address] [address] Toll Free ext: [phone] Home Care Instructions after EGD (Upper Endoscopy) [...] hours, or on weekends and holidays Hospital Helper Teacher and have the GI doctor environmental protection forester paged. The provider who performed your procedure [...] Meehan is a 48 y.o. female MR# [id number] presents today for an EG D to [...] 01/22/2006 Tramadol 01/22/2006 Morphine Clarithromycin Hives 06/28/2007 Ldvdsaq-[id number]-svv-caff 08/28/2008 See procedure note 09/14/2008 documented in [...]
--- OUTSIDE RECORDS SUMMARY | ~2019-10-17 | XMS | Encounter Summary ---
Demographics + + + | Address | [address] | | | [place] [address] | + + + | Home Phone [...] Providers + +------+ + | Care Campus Director Name | Role | Phone | [...] as of this encounter Discharge Summaries Interface, Leadite Man In - 01/12/2005 10:09 AM PDT [id number] GEOVANNI Barnes Admission Date: 12/06/2004 Discharge Date: [...] her incision looked clear, dry, and intact. Dahinda were in place. She had some moderate [...] Sree Carrillo M.D. Chris Padgett M.D. / [id number] / [id number] / [id number] / [id number] Electronically signed by Chris Padgett 12-31-2004 03:03:21 PM documented i n this encounter Plan of Treatment Not on filedocumented as of this encounter Visit Diagnoses Not on filedocumented in this encounter"
--- OUTSIDE RECORDS SUMMARY | ~2019-10-17 | XMS | Encounter Summary ---
Demographics + + + | Address | [address] | | | [place] [address] | + + + | Home Phone [...] + +------+ + | Care Quality Assurance Nurse Name | Role | Phone | [...] Rd | | | | | | [place], [place] | | | | | | [address] | | | +--------+ + + + [...]
--- OUTSIDE RECORDS SUMMARY | ~2019-10-17 | XMS | Encounter Summary ---
Demographics + + + | Address | [address] | | | [place] [address] | + + + | Home Phone [...] Providers + +------+ + | Care Hospital Coder Name | Role | Phone | [...] as of this encounter Progress Notes Interface, Trapper Animal In - 10/15/2005 2:06 AM PDT [id number] GEOVANNI Barnes Clinic Date: 09/18/2005 Clinic: Ms. [...] about a month. Chris Padgett M.D. / [id number] / [id number] / [id number] / [id number] Electronically signed by Chris Padgett 10-14-2005 08:13:46 AM documented i n this encounter Plan of Treatment Not on filedocumented as of this encounter Visit Diagnoses Not on filedocumented in this encounter"
--- OUTSIDE RECORDS SUMMARY | ~2019-10-17 | XMS | Encounter Summary ---
Demographics + + + | Address | [address] | | | [place] [address] | + + + | Home Phone [...] Team Providers + +------+ + | Care Center Aisle Cashier Name | Role | Phone | [...] | | | Metabolism | bypass | [address] | [address] | | | | | Hypovitamino | [address], | Ave | | | | | sis D B12 | [address] | [place], [place] | | | | | nutritional | [place] | [address] | | | | | deficiency | [address] | Phone: | | | | | Other | Phone: | [phone] | | | | | protein-jose manuel | [phone] | Fax: | | | | | nick | Fax: | [phone] | | | | | malnutrition | [phone] | | | | | | Weight | | | | | | | gain | | | | | | | Procedures | | | | | | | CONSULT TO | | | | | | | ENDO | | | | | | | [address] | | | | | | | [address] | | | +--------+--------+ + + + [...] | | | | | | | [facility] | | | | | | | Health and | | | | | | | Healing, | | | | | | | [address] | | | | | | | [place], [place] | | | | | | | [address] | | | | | | | Phone: | | | | | | | [phone] | | | | | | | Fax: | | | | | | | [phone] | +--------+--------+ + + + + Encounter Details +--------+---------+ + + + | Date | Type | Department | Care Team | Description | +--------+---------+ + + + | 09/23/ | Office | Digestive Health | Patricia Banegas, | H/O gastric bypass | | 2013 | Visit | Center at [address] | HIGH SPEED OPERATOR [address] | (Primary Dx); | | | | Sara Kovacs | [facility] [address] | Hypovitaminosis D; | | | | Mailcode: Center | [place], [place] | B12 nutritional | | | | for Health and | [address] | deficiency; Other | | | | Healing, Building 2 | [phone] | protein-calorie | | | | [facility] [place] | | malnutrition; Weight | | | | [address] | | gain; Teeth decayed | | | | [phone] | | | +--------+---------+ + + + [...] make an appt with me Calories approx. 5552-0711 per day when 3 mos or more out from surgery to maintain weight l oss. Calories may need to be adjusted up for individual needs. I recommend eating 5-6 times per day. [employer] Protein 60-100+ gms per day Water: 64 oz per day, your urine should be light yellow. Please let up know if you would like a referral to see the Trailer Driver. I would be happy to put in referrals to [facility], medical membership is $198 for 3 mos. If you are 12 mos or more out from surgery and would like referral for excess skin removal please let us know. Call us if you have any questions or concerns, or send [employer] message for non-urgent issue s. Patricia Banegas RN, [facility] Nurse Practitioner for Bariatric Surgery [facility] | [address] | [place], [place] | [address] | documented in this encounter Progress Notes [...] 3 spine surgeries in past. BARIATRIC FOLLOW-UP Belnida Meehan is a 52 y.o. patient who [...] Hives Mainly in the legs Clindamycin Codeine Ftcococ-Yteookcyrs-Fdp-Caff Balance problems Fioricet W/Codeine (Mniidglleo-Skpwtaghcr-Qdr-Cod) Keflex (Cephalexin) Morphine IM ( only in [facility]) made gut pain worse 08/27/06: Trial [...] replacement 08/2007 right knee Lumbar fusion 05/2008 L5-T9cojdnh with bone spur removals Appendectomy Cholecystectomy section [...] to POC and will call or send [employer] message if any issues. Start time 1325, end time 1353. I spent a total of 28 minutes face to face with this patie nt. Over 50% of visit was in counseling. ~ 2 Minutes of additional time spent reviewing chart prior to visit and documenting after t his visit. Patricia Banegas RN, [facility]- Nurse Practitioner for Bariatric Surgery [facility] | [address] | [place] | [address] | documented in this e ncounter Plan [...]
--- OUTSIDE RECORDS SUMMARY | ~2019-10-17 | XMS | Encounter Summary ---
Demographics + + + | Address | [address] | | | [place] [address] | + + + | Home Phone [...] Providers + +------+ + | Care Perinatal Technician Name | Role | Phone | [...] Rd | | | | | | [place], [place] | | | | | | [address] | | | +--------+ + + + [...]
--- OUTSIDE RECORDS SUMMARY | ~2019-10-17 | XMS | Encounter Summary ---
Demographics + + + | Address | [address] | | | [place] [address] | + + + | Home Phone [...] Team Providers + +------+ + | Care Flasher Adjuster Name | Role | Phone | [...] Rd | | | | | | [place], [place] | | | | | | [address] | | | +--------+ + + + [...]
--- OUTSIDE RECORDS SUMMARY | ~2019-10-17 | XMS | Encounter Summary ---
Demographics + + + | Address | [address] | | | [place] [address] | + + + | Home Phone [...] Providers + +------+ + | Care Ore Digger Name | Role | Phone | [...] 2006 | Visit | Rheumatology [address] | COMPUTER AIDED DESIGN DESIGNER | Fibromyalgia; | | | | [address] | | Fibromyalgia | | | | Mailcode: OPC5 | | | | | | Outpatient Clinic | | | | | | [facility], | | | | | | [place] [address] | | | | | | [phone] | | | +--------+---------+ + + + [...] 4-5/5 for all major deltoids, biceps, triceps. Vice President Of Business Development slightly weak. Tone is normal. There is [...] cervical spine MRI to be done at [facility]. A few of these patients have [...] + + +--------+ + + | [place] INJECT TRIGGER | Procedures | Routin | [...]
--- OUTSIDE RECORDS SUMMARY | ~2019-10-17 | XMS | Encounter Summary ---
Demographics + + + | Address | [address] | | | [place] [address] | + + + | Home Phone [...] Team Providers + +------+ + | Care Fresh Foods Cake Decorator Name | Role | Phone | [...] + | 06/30/ | Refill | [facility] | Alanis, | Medication Refill | | 2018 | | MEDICINE [address] [place] [address] | MD Petrona | | | | | [facility] | [address] [place] [address] | | | | | [place] [address] | [place] [address] | | | | | [phone] | [phone] | | | | | | | [...] | | | | | [place] [address] | | | | | | [phone] | | | | | | | | +--------+---------+ + + + | 12/20/ | Office | Audiology | Elisabet Munson MS | | | 2019 | Visit | | [facility] [address] | | | | | | [place] [address] [place] | | | | | | [place] [address] | | | | | | [phone] | | | | | | | | +--------+---------+ + + + | 12/20/ | Office | Otolaryngology | Ulysses Genao MD | | | 2019 | Visit | | [address] | | | | | | [address] [place], | | | | | | [place] [address] | | | | | | [phone] | | | | | | | | +--------+---------+ + + + documented as of this encounter Visit Diagnoses + + | Diagnosis | + + | Chronic bilateral low back pain without sciatica | + + documented in this encounter"
--- OUTSIDE RECORDS SUMMARY | ~2019-10-17 | XMS | Encounter Summary ---
Demographics + + + | Address | [address] | | | [place] [address] | + + + | Home Phone [...] Providers + +------+ + | Care Sap Enterprise Portal Consultant Name | Role | Phone [...] + + | 05/14/ | Telephone | [facility] | Erich Conley MD | Medication Refill | | 2018 | | MEDICINE [address] [place] [address] | [address] [facility] | | | | | Street [facility] | [place] | | | | | [facility] [place] [address] | [address] | | | | | [phone] | | | +--------+ + + + [...] | | | | | [place] [address] | | | | | | [phone] | | | | | | | | +--------+---------+ + + + | 12/20/ | Office | Audiology | Elisabet Munson MS | | | 2019 | Visit | | [facility] [address] | | | | | | [place] [address] [place] | | | | | | [place] [address] | | | | | | [phone] | | | | | | | | +--------+---------+ + + + | 12/20/ | Office | Otolaryngology | Ulysses Genao MD | | | 2020 | Visit | | [address] [place] | | | | | | [address] [place], | | | | | | [place] [address] | | | | | | [phone] | | | | | | | | +--------+---------+ + + + documented as of this encounter Visit Diagnoses Not on filedocumented in this encounter"
--- OUTSIDE RECORDS SUMMARY | ~2019-10-17 | XMS | Encounter Summary ---
Demographics + + + | Address | [address] | | | [place] [address] | + + + | Home Phone [...] | | | | | hemorrhoid | [place], [place] | [address] [facility] | | | | | Rectal pain | [address] | [facility] | | | | | Procedures | | Rd [place], | | | | | CONSULT TO | | [place] | | | | | COLORECTAL | | [address] | | | | | SURGERY | | Phone: | | | | | | | [phone] | | | | | | | Fax: | | | | | | | [phone] | +--------+--------+ + + + + Encounter Details +--------+ + + + + | Date | Type | Department | Care Team | Description | +--------+ + + + + | 08/10/ | Sweet Pickle Maker | Digestive Health | Nuris Cardenas, ANP | Internal Hemorrhoid; | | 2008 | | [place] [address] [address] | | Rectal Pain | | | | [address] | | | | | | Mailcode: [id number] | | | | | | [facility] | | | | | | [place], [place] | | | | | | [address] | | | | | | [phone] | | | +--------+ + + + [...]
--- OUTSIDE RECORDS SUMMARY | ~2019-10-17 | XMS | Encounter Summary ---
Demographics + + + | Address | [address] | | | [place] [address] | + + + | Home Phone [...] Team Providers + +------+ + | Care Weatherization Operations Manager Name | Role | Phone [...] + | 11/15/ | Office | [facility] | Emmy-Tajti, | Arthralgia of both | | 2019 | Visit | MEDICINE [address] | MD Petrona | hands (Primary Dx); | | | | [address] [place] | [address] [facility] | Acquired | | | | [place] [address] | [place] [address] | hypothyroidism; | | | | [phone] | [phone] | Migraine without | | | | [...] Common migraine COPD (chronic obstructive pulmonary disease) ([facility] [...] Myalgia Nausea Nonalcoholic hepatosteatosis Obesity Opioid dependence ([facility]) Orthostatic hypotension OLIVER (obstructive sleep apnea) Osteoarthritis, generalized Osteopenia Osteoporosis Palpitations Peripheral neuropathy Rheumatoid arthritis ([facility] [...] (See Comments) Confused and questionable for seizures Woatracfqh-Gcos-Wsgljhir Hives and Rash Cephalexin Hives Ciprofloxacin Hives [...] Note: Parts of this documentwere created using [employer] speech recognition software. As a r esult, [...] | | | | | [place] [address] | | | | | | [phone] | | | | | | | | +--------+---------+ + + + | 12/20/ | Office | Audiology | Elisabet Munson MS | | | 2019 | Visit | | [facility] [address] | | | | | [address] [place] | | | | | | [place] [address] | | | | | | [phone] | | | | | | | | +--------+---------+ + + + | 12/20/ | Office | Otolaryngology | Ulysses Genao MD | | | 2019 | Visit | | [address] | | | | | | [address] [place], | | | | | | [place] [address] | | | | | | [phone] | | | | | | | [...] [address] | [place] | [phone] | | [facility] | | [address] | | | - LABORATORY | | [...] | | | | | with both ID-3 and | | | | | | [...] Child 100-200, | REFERENCE LAB | | [place], [place] [id number] Auditing Coder: Manish Chin MD, Phone: | [employer] | | [phone] Performed at: - [facility] | | | [place], [place] [id number] Auditing Coder: Jeannine Mendoza MD, | | | Phone: [phone] | | + + + + + + + + | Performing | Address | City/State/Zipcode | Phone Number | | Organization | | | | + + + + + | REFERENCE LAB | [address] | [place], [place] | [phone] | | [facility] | [facility] | [address] | | + + + + + [...] + + | Performed at: 01 - [place] [address], | REFERENCE LAB | | [place], [place] [id number] Auditing Coder: Bandar Gan MD, Phone: | [facility] | | [phone] | | + + + + + + + + | Performing | Address | City/State/Zipcode | Phone Number | | Organization | | | | + + + + + | REFERENCE LAB | [address] | [place], [place] | [phone] | | [facility] | [place] | [address] | | + + + + + [...] + | [facility] | [address] | [place] | [phone] | | [facility] | | [address] | | | - LABORATORY | | [...] [address] | [place] | [phone] | | [facility] | | [address] | | | - LABORATORY | | [...] [address] | [place] | [phone] | | [facility] | | [address] | | | - LABORATORY | | [...] 11 | 9 - 23 mg/dL | [facility] | | | | | | [facility] | | | | | | MEDICAL | | | | | | CENTER - | | | | | | LABORATORY | | + + + + + + | Creatinine | 0.82 | 0.55 - 1.02 | [facility] | | | | | mg/dL | [facility] | | | | | | MEDICAL | | | | | | CENTER - | | | | | | LABORATORY | | + + + + + + | eGFR if not | >60Comment: GLOMERULAR | >=60 | [place] | | | | FILTRATION | mL/min/1.73m2 | [facility] | | | GUYANESE | RATE,ESTIMATED | | MEDICAL | | | | mL/min/1.26y8Iqvu than | | CENTER - | | [...] + + + + + + | Albumin/Folr | 2.0 (H) | 0.8 - 1.9 [...] ST. | [address] | [place], [place] | [phone] | | [facility] | | [address] | | | - LABORATORY | | [...]
--- OUTSIDE RECORDS SUMMARY | ~2019-10-17 | XMS | Encounter Summary ---
Demographics + + + | Address | [address] | | | [place] [address] | + + + | Home Phone [...] Providers + +------+ + | Care Slurry Tank Tender Name | Role | Phone [...] 05/28/ | Office | [facility] at [facility] | Lukasz Charles, | Major Depressive | | 2006 | Visit | [address] | PhD [address] | Disorder, Recurrent | | | | Mailcode: CH15P | [place], [place] | Episode, Moderate | | | | [facility] | [address] | ([facility]); LBP (Low Back | | | | and Healing, | [phone] | Pain); DJD | | | | | | (Degenerative Joint | | | | Floor [place], [place] | | Disease) of Knee; | | | | [address] | | Other Pain Disorders | | | | [phone] | | Related to | | | [...] she is having some acute illness. Diagnosis: [place] I: 1. (296.32) Major depressive disorder, recurrent, moderate. 2. (309.24) Adjustment disorder with anxiety. 3. 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 [place] II: Deferred [place] III: abdominal pain, migraine headache, low back pain. [place] IV: low finances [place] V: GAF 55-60 Plan: Return with next medical follow-up appointment. Check mood, knee surgery, relaxation, acti vity, distraction. Continue cognitive/behavioral therapy. Total time spent with patient was approximately 45 minutes. LUKASZ [facility]LES [facility] [address] [facility], 4th [place] [address] documented in this encount er Plan of [...]
--- OUTSIDE RECORDS SUMMARY | ~2019-10-17 | XMS | Encounter Summary ---
Demographics + + + | Address | [address] | | | [place] [address] | + + + | Home Phone [...] Providers + +------+ + | Care Manufacturing Maintenance Mechanic Name | Role | Phone [...] [id number] | | | | | | [place] | | | | | | [address] | | | | | | [phone] | | | +--------+ + + + [...]
--- OUTSIDE RECORDS SUMMARY | ~2019-10-17 | XMS | Encounter Summary ---
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 Diagnosis: [place] I: 1. (296.32) Major depressive disorder, recurrent, moderate. 2. (309.24) Adjustment disorder with anxiety. 3. 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 [place] II: Deferred [place] III: abdominal pain, migraine headache, low back pain. [place] IV: low finances [place] V: GAF 55-60 Plan: Return with next medical follow-up appointment. Check mood, knee surgery, pacing, relaxati on, activity, distraction. Continue cognitive/behavioral therapy. Discuss need for further sessions. Total time spent with patient was approximately 45 minutes. LUKASZ CHARLES PHD [facility] [address] [facility], 4th [place] [address] documented in this encount er Plan of [...]
--- OUTSIDE RECORDS SUMMARY | ~2019-10-17 | XMS | Encounter Summary ---
Demographics + + + | Address | [address] | | | [place] [address] | + + + | Home Phone [...] Team Providers + +------+ + | Care Inward Toll Operator Name | Role | Phone | [...] 11/11/ | Office | [facility] at [facility] | Lukasz Charles, | Major Depressive | | 2006 | Visit | [address] | PhD [address] | Disorder, Recurrent | | | | Mailcode: CH15P | [place], [place] | Episode, Moderate | | | | [facility] | [address] | ([facility]); Left Knee | | | | and Healing, | [phone] | Pain; Neck Pain; | | | | Building | | 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 Diagnosis: [place] I: 1. (296.32) Major depressive [...] CHARLES PHD [facility] [address] [facility], 4th [place] [address] documented in this encount er Plan of [...] | ([facility]) Left Knee | | | | | [...]
--- OUTSIDE RECORDS SUMMARY | ~2019-10-17 | XMS | Encounter Summary ---
[...] Providers + +------+ + | Care Locomotive Operator Helper Name | Role | Phone [...] + + | 09/16/ | Telephone | [facility] | Miranda Lambert, | Memory loss | | 2006 | | Pain Center at | ANP | | | | | [facility] | | | | | | [address] | | | | | | Mailcode: CH15P | | | | | | [facility] | | | | | | and Healing, | | | | | | Building | | | | | | Floor [place], [place] | | | | | | [address] | | | | | | [phone] | | | +--------+ + + + [...]
--- OUTSIDE RECORDS SUMMARY | ~2019-10-17 | XMS | Encounter Summary ---
Demographics + + + | Address | [address] | | | [place] [address] | + + + | Home Phone [...] Team Providers + +------+ + | Care Analysis Reporting Developer Name | Role | Phone | [...] Densitometry | | MD Beto | Density [facility] | | | | | Osteoporosis | [address] | [address] | | | | | Procedures | Ave | [address] | | | | | CONSULT TO | [place], [place] | Rd Mailcode: | | | | | BONE | [address] | [address] | | | | | DENSITOMETRY | Phone: | [address] | | | | | | [phone] | [place], [place] | | | | | | Fax: | [address] | | | | | | [phone] | Phone: | | | | | | | [phone] | | | | | | | Fax: | | | | | | | [phone] | +--------+--------+ + + + + Reason [...] [address] | | | | | [facility] | [place], [place] | | | | | [address] | [address] | | | | | [address] | [phone] | | | | | [facility] | | | | | | Physician's | | | | | | Pavilion [place], | | | | | | [place] [address] | | | | | | [phone] | | | +--------+ + + + [...]
--- OUTSIDE RECORDS SUMMARY | ~2019-10-17 | XMS | Encounter Summary ---
Demographics + + + | Address | [address] | | | [place] [address] | + + + | Home Phone [...] Providers + +------+ + | Care Material Expediter Name | Role | Phone | [...] | | | [facility] | [place], [place] | | | | | [address] | [address] | | | | | [address] | [phone] | | | | | [facility] | | | | | | Physician's | | | | | | Pavilion [place], | | | | | | [place] [address] | | | | | | [phone] | | | +--------+ + + + [...]
--- OUTSIDE RECORDS SUMMARY | ~2019-10-17 | XMS | Encounter Summary ---
Demographics + + + | Address | [address] | | | [place] [address] | + + + | Home Phone [...] as of this encounter Discharge Summaries Interface, Spinning Frame Changer In - 01/12/2005 6:32 AM PDTAdmission Date: [...] M.D., D.M.D. Chris Padgett M.D. CLAIRE/carolynn A [id number] cc: documente d in this encounter Plan of Treatment Not on filedocumented as of this encounter Visit Diagnoses Not on filedocumented in this encounter"
--- OUTSIDE RECORDS SUMMARY | ~2019-10-17 | XMS | Encounter Summary ---
Demographics + + + | Address | [address] | | | [place] [address] | + + + | Home Phone [...] Providers + +------+ + | Care Night Shift Manager Name | Role | Phone [...] + | 06/14/ | Refill | [facility] | Alanis, | Medication Refill | | 2018 | | MEDICINE [address] [place] [address] | MD Petrona | | | | | [facility] | [address] [place] [address] | | | | | [place] [address] | [place] [address] | | | | | [phone] | [phone] | | | | | | | [...] | | | | | [place] [address] | | | | | | [phone] | | | | | | | | +--------+---------+ + + + | 12/20/ | Office | Audiology | Elisabet Munson MS | | | 2019 | Visit | | [facility] [address] | | | | | | [place] [address] [place] | | | | | | [place] [address] | | | | | | [phone] | | | | | | | | +--------+---------+ + + + | 12/20/ | Office | Otolaryngology | Ulysses Genao MD | | | 2020 | Visit | | [address] [facility] | | | | | | [address] [place], | | | | | | [place] [address] | | | | | | [phone] | | | | | | | | +--------+---------+ + + + documented as of this encounter Visit Diagnoses Not on filedocumented in this encounter"
--- OUTSIDE RECORDS SUMMARY | ~2019-10-17 | XMS | Encounter Summary ---
Demographics + + + | Address | [address] | | | [place] [address] | + + + | Home Phone [...] Providers + +------+ + | Care Mobile Unit Assistant Name | Role | Phone | + +------+ + | Sulaiman Carrera MD | PCP | | + +------+ + Encounter Details +--------+ + + + + | Date | Type | Department | Care Team | Description | +--------+ + + + + | 02/08/ | Telephone | Dig[facility]ive Health | Chris Padgett, | | | 2008 | | [place] [address] | [address] [facility] | | | | | Bethanie Mailcode: CH4S | [address] | | | | | [facility] | [place], [place] | | | | | and Healing, | [address] | | | | | [place] [address], [address]th | [phone] | | | | | Floor [place], [place] | | | | | | [address] | | | | | | [phone] | | | +--------+ + + + [...]
--- OUTSIDE RECORDS SUMMARY | ~2019-10-17 | XMS | Encounter Summary ---
[...] + + | 04/09/ | Telephone | [facility] Division of | Carlos Arreola, | Erroneous Encounter | | 2005 | | Gastroenterology/Hep | [address] | - Disregard | | | | atology [address] | (duplicate call; see | | | | [address] | [place] [address] | other encounter ) | | | | Mailcode: PV310 | [phone] | | | | | [facility] | | | | | | [address] | | | | | | [place], [place] | | | | | | [address] | | | | | | [phone] | | | +--------+ + + + [...]
--- OUTSIDE RECORDS SUMMARY | ~2019-10-17 | XMS | Encounter Summary ---
Demographics + + + | Address | [address] | | | [place] [address] | + + + | Home Phone [...] Providers + +------+ + | Care Salesperson Flying Squad Name | Role | Phone | + [...] | | Order | Loop Physician's | [place], [place] | | | | | [place], [facility] floor | [address] | | | | | [place], [place] | [phone] | | | | | [address] | | | | | | [phone] | | | +--------+ + + + [...]
--- OUTSIDE RECORDS SUMMARY | ~2019-10-17 | XMS | Encounter Summary ---
Demographics + + + | Address | [address] | | | [place] [address] | + + + | Home Phone [...] Team Providers + +------+ + | Care Report Programmer Name | Role | Phone | [...] Required | | | i, | [place] | | | | | osteoporosis | Sulaiman-Russell | [place], | | | | | without | , MD [address] | [place] [address] | | | | | current | [address] | Phone: | | | | | pathological | [place], | [phone] | | | | | fracture | [place] | Fax: | | | | | | [address] | [phone] | | | | | | Phone: | | | | | | | [phone] | | | | | | | Fax: | | | | | | | [phone] | | +--------+ + + + + + Reason for Visit + + + | Reason | Comments | + + + | Medication Orders | | + + + Encounter Details +--------+ + + + + | Date | Type | Department | Care Team | Description | +--------+ + + + + | 09/20/ | Telephone | [facility] | Alanis, | Medication Orders | | 2019 | | MEDICINE [address] [place] [address] | MD Petrona | | | | | [facility] | [address] [place] [address] | | | | | [place] [address] | [place] [address] | | | | | [phone] | [phone] | | | | | | | [...] | | | | | [place] [address] | | | | | | [phone] | | | | | | | | +--------+---------+ + + + | 12/20/ | Office | Audiology | Elisabet Munson MS | | | 2019 | Visit | | [address] | | | | | | ST [place] | | | | | | [place] [address] | | | | | | [phone] | | | | | | | | +--------+---------+ + + + | 12/20/ | Office | Otolaryngology | Ulysses Genao MD | | | 2019 | Visit | | [address] [place] | | | | | | [address] [place], | | | | | | [place] [address] | | | | | | [phone] | | | | | | | [...]
--- OUTSIDE RECORDS SUMMARY | ~2019-10-17 | XMS | Encounter Summary ---
Demographics + + + | Address | [address] | | | [place] [address] | + + + | Home Phone [...] Providers + +------+ + | Care Cleaner Name | Role | Phone | [...] Services | Therapy | Acute pain | [place] | [facility] | | | Required | | of right | Eliud, | PHYSICAL | | | | | shoulder | MD [address] | THERAPY 1425 | | | | | Tear of | [address] | [place] | | | | | right | [place], | [place], [place] | | | | | supraspinatu | [place] | [address] | | | | | s tendon, | [address] | Phone: | | | | | initial | Phone: | [phone] | | | | | encounter | [phone] | Fax: | | | | | | Fax: | [phone] | | | | | | [phone] | | +--------+ + + + + [...] | | right | [address] | [address] Phone: | | | | | supraspinatu | [place], | [phone] | | | | | s tendon, | [place] | Fax: | | | | | initial | [address] | [phone] | | | | | encounter | Phone: | | | | | | | [phone] | | | | | | | Fax: | | | | | | | [phone] | | +--------+ + + + + + Encounter Details +--------+---------+ + + + | Date | Type | Department | Care Team | Description | +--------+---------+ + + + | 02/23/ | Office | [facility] | Lc Vail | Acute pain of right | | 2018 | Visit | ORTHOPEDIC SURGERY | MD Eliud [address] | shoulder; Tear of | | | | [address] [facility] | [facility] | right supraspinatus | | | | [place] | [place] [address] | tendon, initial | | | | [address] | [phone] | encounter | | | | [phone] | | | +--------+---------+ + + + [...] the shoulder. Try to hold the stretch rht6pzfaxyn. 3. Work up to jbemr2siua of this stretch,3times a day. Work up [...] ask your healthcare provider. Date Last Reviewed: 07/16/201719991335-9272 [employer]. [address] [place] [address], [place] [address]. All righ ts reserved. This information is not intended as a substitute for professional medical care. Always follow your healthcare professional's instructions. documented in this encounter Progress Notes Lc Vail MD - 02/23/2018 1:30 PM PDTFormatting of this note might be different fro m the original. [facility] HISTORY AND PHYSICAL [...] worse as time goes on. She quit [employer] in 2013. Past Medical History: Past [...] Procedure: COLONOSCOPY; Surgeon: Luther Brito MD; Location: [facility] MEDICAL PROCEDURE UNIT DILATION AND CURETTAGE OF UTERUS ELBOW SURGERY FINGER TRIGGER RELEASE 2002 FINGER TRIGGER RELEASE 2009 GASTRIC BYPASS SURGERY 2004 HYSTERECTOMY 05/14/1980 JOINT REPLACEMENT Bilateral 2007,2008 KNEE ARTHROSCOPY 2005 LAPAROSCOPY 01/27/2015 LAPAROTOMY 2008 ROTATOR CUFF REPAIR 2005 SPINE SURGERY TONSILLECTOMY 1964 UPPER GASTROINTESTINAL ENDOSCOPY N/A 12/18/2017 Procedure: EGD; Surgeon: Luther Brito MD; Location: [facility] MEDICAL PROCEDURE UNIT Allergies: Allergies Allergen Reactions Codeine Sulfate Nausea Only Levofloxacin Hives, Itching and Rash Amitriptyline Hcl Other (See Comments) Confused and questionable for seizures Eewfskjshk-Bnge-Rvuppngl Hives and Rash Cephalexin Hives Ciprofloxacin Hives [...] 1. Acute pain of right shoulder * [facility] Physical Therapy - AMB Referral triamcinolone acetonide (KENALOG-40) 40 mg/mL injection 40 mg 2. Tear of right supraspinatus tendon, initial encounter * [facility] Physical Therapy - AMB Refe [...] injection. She is very symptomatic at the [facility] and states that she has a [...] made to ensure accuracy; however, inadvertent computerized spinner concrete pipe errors may be pre sent. I appreciate the opportunity to help with the management of this patient. Lc Vail MD [facility] umented in this encounter Plan [...] | | | | | [place] [address] | | | | | | [phone] | | | | | | | | +--------+---------+ + + + | 12/20/ | Office | Audiology | Elisabet Munson MS | | | 2019 | Visit | | [facility] [address] | | | | | | [address] [place] | | | | | | [place] [address] | | | | | | [phone] | | | | | | | | +--------+---------+ + + + | 12/20/ | Office | Otolaryngology | Ulysses Genao MD | | | 2019 | Visit | | [address] [place] | | | | | | [address] [place], | | | | | | [place] [address] | | | | | | [phone] | | | | | | | [...]
--- OUTSIDE RECORDS SUMMARY | ~2019-10-17 | XMS | Encounter Summary ---
Demographics + + + | Address | [address] | | | [place] [address] | + + + | Home Phone [...] + +------+ + | Care Keno Writer Name | Role | Phone | [...] 11/24/ | Office | [facility] | Lukasz Charles, | Major Depressive | | 2006 | Visit | [address] | PhD [address] | Disorder, Recurrent | | | | Mailcode: 15 | [place], [place] | Episode, Moderate | | | | [facility] | [address] | ([facility]); Spondylosis | | | | and Healing, | [phone] | with Myelopathy, | | | | Building | | Lumbar Region; Left | | | | Floor [place], [place] | | Knee Pain; | | | | [address] | | Adjustment Disorder | | | | [phone] | | with Anxiety; Other | | [...] some pl ans for more activity. Diagnosis: Norwood I: 1. (296.32) Major depressive disorder, recurrent, moderate. 2. (309.24) Adjustment disorder with anxiety. 3. 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 Norwood II: Deferred Norwood III: abdominal pain, migraine headache, low back pain. Norwood IV: low finances Norwood V: GAF 55-60 Plan: Return in 2 weeks. Check mood, pacing, relaxation, activity, distraction. Continue cognit gerda/behavioral therapy. Set goals for summer activity. Total time spent with patient was approximately 45 minutes. LUKASZ CHARLES PHD [facility] [address] [place] [address] And [facility], [address] [place] [address] documented in this encount er Plan of [...]
--- OUTSIDE RECORDS SUMMARY | ~2019-10-17 | XMS | Encounter Summary ---
Demographics + + + | Address | [address] | | | [place] [address] | + + + | Home Phone [...] Providers + +------+ + | Care News Reel Cameraman Name | Role | Phone | + [...] | | sciatica | [address] | [address] | | | | | Lumbar | [place], | Phone: | | | | | stenosis | [place] | [phone] | | | | | Opiate | [address] | Fax: | | | | | dependence, | Phone: | [phone] | | | | | continuous | [phone] | | | | | | (HCC) | Fax: | | | | | | | [phone] | | +--------+ + + + + + Reason for Visit + + + | Reason | Comments | + + + | Medication Refill | | + + + Encounter Details +--------+---------+ + + + | Date | Type | Department | Care Team | Description | +--------+---------+ + + + | 02/23/ | Office | [facility] | Emmy-Tacliffordti, | B12 deficiency | | 2017 | Visit | MEDICINE [address] [place] [address] | MD Petrona | (Primary Dx); | | | | [facility] | [address] [place] [address] | Chronic bilateral | | | | [place] [address] | [place] [address] | low back pain | | | | [phone] | [phone] | without sciatica; | | | | [...] AM PDTWe are referr ing you to [facility] in [place]. B12 shot today. documented in this encounter [...] interested in seein a pain clinic in [facility] as she is an [place] [...] Chronic pain COPD (chronic obstructive pulmonary disease) ([facility]) Depression Diarrhea Dumping syndrome Fibromyalgia Hyperparathyroidism ([facility]) Hypothyroidism IBS (irritable bowel syndrome) Lumbar radiculopathy primarily right 01/04/2015 Meniere syndrome Migraine Migraines Obesity OLIVER (obstructive sleep apnea) Osteoarthritis, generalized Osteopenia Osteoporosis Peripheral neuropathy ([facility]) Rheumatoid arthritis ([facility]) Right arm pain 01/04/2015 RLS (restless legs syndrome) S/P lumbar fusion 01/04/2015 Scoliosis Stroke ([facility]) Syncope Tremor FAMILY HISTORY Family History [...] Reactions Levofloxacin Hives and Itching Amitriptyline Hcl Gfmwswbmld-Mnmp-Eufpgwni Cephalexin Ciprofloxacin Clarithromycin Clindamycin Hcl Codeine Sulfate [...] | | | | | | [address] [place] [address] ST [place] | | | | | | [place] [address] | | | | | | [phone] | | | | | | | | +--------+---------+ + + + | 12/20/ | Office | Audiology | Elisabet Munson MS | | 2019 | Visit | | [facility] | | | | | | [place] [address] [place] | | | | | | [place] [address] | | | | | | [phone] | | | | | | | | +--------+---------+ + + + | 12/20/ | Office | Otolaryngology | Ulysses Genao MD | | | 2020 | Visit | | [address] [place] | | | | | | [address] [place], | | | | | | [place] [address] | | | | | | [phone] | | | | | | | [...]
--- OUTSIDE RECORDS SUMMARY | ~2019-10-17 | XMS | Encounter Summary ---
Demographics + + + | Address | [address] | | | [place] [address] | + + + | Home Phone [...] Providers + +------+ + | Care Airplane Flight Attendant Name | Role | Phone | [...] + | 02/24/ | Refill | [facility] | Alanis, | Medication Refill | | 2017 | | MEDICINE [address] [place] [address] | MD Petrona | | | | | [facility] | [address] [place] [address] | | | | | [place] [address] | [place] [address] | | | | | [phone] | [phone] | | | | | | | [...] | | | | | [place] [address] | | | | | | [phone] | | | | | | | | +--------+---------+ + + + | 12/20/ | Office | Audiology | Elisabet Munson MS | | | 2019 | Visit | | [facility] [address] | | | | | | [place] [address] [place] | | | | | | [place] [address] | | | | | | [phone] | | | | | | | | +--------+---------+ + + + | 12/20/ | Office | Otolaryngology | Ulysses Genao MD | | | 2020 | Visit | | [address] [facility] | | | | | | [address] [place], | | | | | | [place] [address] | | | | | | [phone] | | | | | | | | +--------+---------+ + + + documented as of this encounter Visit Diagnoses Not on filedocumented in this encounter"
--- OUTSIDE RECORDS SUMMARY | ~2019-10-17 | XMS | Encounter Summary ---
Demographics + + + | Address | [address] | | | [place] [address] | + + + | Home Phone [...] Providers + +------+ + | Care Independent Crop Consultant Name | Role | Phone | + +------+ + | Petrona Thapa | PCP | | | MD | | | + +------+ + Encounter Details +--------+ + + + + | Date | Type | Department | Care Team | Description | +--------+ + + + + | 07/16/ | Orders Only | [facility] | Alanis, | | | 2017 | | MED CTR OP INFUSION | MD Petrona | | | | | [address] | [address] [facility] | | | | | [place] | [place] [address] | | | | | [address] | [phone] | | | | | [phone] | | | +--------+ + + + [...] | | | | | [place] [address] | | | | | | [phone] | | | | | | | | +--------+---------+ + + + | 12/20/ | Office | Audiology | Elisabet Munson MS | | | 2019 | Visit | | [facility] [address] | | | | | [address] [place] | | | | | | [place] [address] | | | | | | [phone] | | | | | | | | +--------+---------+ + + + | 12/20/ | Office | Otolaryngology | Ulysses Genao MD | | | 2019 | Visit | | [address] | | | | | | [address] [place], | | | | | | [place] [address] | | | | | | [phone] | | | | | | | | +--------+---------+ + + + documented as of this encounter Visit Diagnoses Not on filedocumented in this encounter"
--- OUTSIDE RECORDS SUMMARY | ~2019-10-17 | XMS | Encounter Summary ---
Demographics + + + | Address | [address] | | | [place] [address] | + + + | Home Phone [...] Team Providers + +------+ + | Care Puppet Master Name | Role | Phone | [...] | | | | | | [place], | | | | | | | [place] | | | | | | | [address] | | | | | | | Phone: | | | | | | | [phone] | | | | | | | Fax: | | | | | | | [phone] | +--------+--------+ + + + + Encounter Details +--------+---------+ + + + | Date | Type | Department | Care Team | Description | +--------+---------+ + + + | 11/10/ | Office | Digestive Health | Chris Padgett, | Status Post | | 2007 | Visit | [place] [address] | [address] | Bariatric Surgery; | | | | Ave Mailcode: CH4S | [address] | Abdominal Pain, | | | | Center [facility] | [place], [place] | Other Specified Site | | | | and Healing, | [address] | | | | | Building | [phone] | | | | | Floor [place], [place] | | | | | | [address] | | | | | | [phone] | | | +--------+---------+ + + + [...]
--- OUTSIDE RECORDS SUMMARY | ~2019-10-17 | XMS | Encounter Summary ---
Demographics + + + | Address | [address] | | | [place] [address] | + + + | Home Phone [...] Providers + +------+ + | Care Household Personal Assistant Name | Role | Phone [...] + + | 05/18/ | Telephone | [facility] | Alanis, | Referral | | 2017 | | MEDICINE [address] [place] [address] | MD Petrona | | | | | [facility] | [address] [place] [address] | | | | | [place] [address] | [place] [address] | | | | | [phone] | [phone] | | | | | | | [...] | | | | | [place] [address] | | | | | | [phone] | | | | | | | | +--------+---------+ + + + | 12/20/ | Office | Audiology | Elisabet Munson MS | | | 2019 | Visit | | [facility] [address] | | | | | | [address] [place] [address] [place] | | | | | | [place] [address] | | | | | | [phone] | | | | | | | | +--------+---------+ + + + | 12/20/ | Office | Otolaryngology | Ulysses Genao MD | | | 2020 | Visit | | [address] [facility] | | | | | | [address] [place], | | | | | | [place] [address] | | | | | | [phone] | | | | | | | | +--------+---------+ + + + documented as of this encounter Visit Diagnoses Not on filedocumented in this encounter"
--- OUTSIDE RECORDS SUMMARY | ~2019-10-17 | XMS | Encounter Summary ---
Demographics + + + | Address | [address] | | | [place] [address] | + + + | Home Phone [...] Providers + +------+ + | Care Corporate Risk Analyst Name | Role | Phone | [...]
--- OUTSIDE RECORDS SUMMARY | ~2019-10-17 | XMS | Encounter Summary ---
Demographics + + + | Address | [address] | | | [place] [address] | + + + | Home Phone [...] Team Providers + +------+ + | Care Horses Or Mules Teamster Name | Role | Phone | [...] Rehabilitatio | syndrome of | i, | Gunter | | | | n | right | Petrona | [place], | | | | | shoulder | , MD [address] | [place] [address] | | | | | Procedures | [address] | Phone: | | | | | PT | [place], | [phone] | | | | | | [place] | Fax: | | | | | | [address] | [phone] | | | | | | Phone: | | | | | | | [phone] | | | | | | | Fax: | | | | | | | [phone] | | +--------+ + + + + [...] + + | 09/22/ | Office | [facility] | Alanis, | Impingement syndrome | | 2018 | Visit | MEDICINE [address] | MD Petrona | of right shoulder | | | | [address] [place] | [address] [place] | (Primary Dx); Chest | | | | [place] [address] | [place] [address] | pain, unspecified | | | | [phone] | [phone] | type | | | | | [...] (See Comments) Confused and questionable for seizures Yycsazqxna-Huxr-Bowgogvo Cephalexin Hives Duloxetine Migraines and nausea Ketorolac Hives Morphine Swelling Ropinirole Hcl Hives Tramadol Hcl Nausea Only Alhcpusefz-Ujbd-Irjjcovy Hives and Rash Ciprofloxacin Hives and Rash [...] Right 2 + Vw; Future - * [facility] Physical Therapy - AMB Referral; Future 2. Chest pain, unspecified type - nitroglycerin (NITROSTAT) 0.4 mg SL tablet; Place 1 tablet under the tongue every 5 minut es as needed for Chest pain. Dispense: 25 tablet; Refill: 3 FOLLOW-UP Return in about 6 months (around 03/24/2018). Note: Parts of this documentwere created using [employer] speech recognition software. As a r esult, [...] | | | | | [place] [address] | | | | | | [phone] | | | | | | | | +--------+---------+ + + + | 12/20/ | Office | Audiology | Elisabet Munson MS | | | 2019 | Visit | | [facility] [address] | | | | | [address] [place] | | | | | | [place] [address] | | | | | | [phone] | | | | | | | | +--------+---------+ + + + | 12/20/ | Office | Otolaryngology | Ulysses Genao MD | | | 2019 | Visit | | [address] | | | | | | [address] [place], | | | | | | [place] [address] | | | | | | [phone] | | | | | | | [...]
--- OUTSIDE RECORDS SUMMARY | ~2019-10-17 | XMS | Encounter Summary ---
Demographics + + + | Address | [address] | | | [place] [address] | + + + | Home Phone [...] Team Providers + +------+ + | Care Convertible Power Shovel Operator Name | Role | Phone | + +------+ + | Pedrito Gutierrez MD | PCP | | + +------+ + Encounter Details +--------+ + + + + | Date | Type | Department | Care Team | Description | +--------+ + + + + | 03/26/ | Telephone | [facility] Division of | Carlos Arreola, | | | 2005 | | Gastroenterology/Hep | [address] | | | | | atology [address] | [address] | | | | | [address] | [place] [address] | | | | | Mailcode: PV310 | [phone] | | | | | Physician's Sharmila | | | | | | [address] | | | | | | [place], [place] | | | | | | [address] | | | | | | [phone] | | | +--------+ + + + [...]
--- OUTSIDE RECORDS SUMMARY | ~2019-10-17 | XMS | Encounter Summary ---
Demographics + + + | Address | [address] | | | [place] [address] | + + + | Home Phone [...] Providers + +------+ + | Care Racing Manager Name | Role | Phone | [...] | | sciatica | [address] | [place] [address] | | | | | Generalized | [place], | Phone: | | | | | osteoarthrit | [place] | [phone] | | | | | is | [address] | Fax: | | | | | | Phone: | [phone] | | | | | | [phone] | | | | | | | Fax: | | | | | | | [phone] | | +--------+ + + + + + Reason for Visit + + + | Reason | Comments | + + + | Medication Problem | | + + + Encounter Details +--------+--------+ + + + | Date | Type | Department | Care Team | Description | +--------+--------+ + + + | 06/05/ | Refill | [facility] | Alanis, | Medication Problem | | 2016 | | MEDICINE [address] [place] [address] | MD Petrona | | | | | [facility] | [address] [place] [address] | | | | | [place] [address] | [place] [address] | | | | | [phone] | [phone] | | | | | | | [...] | | | | | [address] [facility] | | | | | | [place] [address] | | | | | | [phone] | | | | | | | | +--------+---------+ + + + | 12/20/ | Office | Audiology | Elisabet Munson MS | | | 2019 | Visit | | [facility] [address] | | | | | | [address] | | | | | | [place] [address] | | | | | | [phone] | | | | | | | | +--------+---------+ + + + | 12/20/ | Office | Otolaryngology | Ulysses Genao MD | | | 2020 | Visit | | [address] [place] | | | | | | [address] [place], | | | | | | [place] [address] | | | | | | [phone] | | | | | | | [...]
--- OUTSIDE RECORDS SUMMARY | ~2019-10-17 | XMS | Encounter Summary ---
Demographics + + + | Address | [address] | | | [place] [address] | + + + | Home Phone [...] Providers + +------+ + | Care Truck Driver Helper Name | Role | Phone | [...] Lab Results | | 2012 | | [facility] [address] | [employer] [address] | | | | | Sara Kovacs | [facility] [address] | | | | | Mailcode: Center | [place], [place] | | | | | for Health and | [address] | | | | | [place] [address] | [phone] | | | | | [place] | | | | | | [address] | | | | | | [phone] | | | +--------+ + + + [...]
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
--- OUTSIDE RECORDS SUMMARY | ~2019-10-17 | XMS | Encounter Summary ---
Demographics + + + | Address | [address] | | | [place] [address] | + + + | Home Phone [...] Team Providers + +------+ + | Care Receptionist Name | Role | Phone | [...] [address]rae | | | | | | [facility] | | | | | | [place], [place] | | | | | | [address] | | | | | | [phone] | | | +--------+ + + + [...]
--- OUTSIDE RECORDS SUMMARY | ~2019-10-17 | XMS | Encounter Summary ---
Demographics + + + | Address | [address] | | | [place] [address] | + + + | Home Phone [...] Providers + +------+ + | Care Accounting Software Specialist Name | Role | Phone [...] | | right | [address] | [address] Phone: | | | | | supraspinatu | [place], | [phone] | | | | | s tendon, | [place] | Fax: | | | | | initial | [address] | [phone] | | | | | encounter | Phone: | | | | | | | [phone] | | | | | | | Fax: | | | | | | | [phone] | | +--------+ + + + + [...] Acute pain | Emmy-Tajt | [address] | | | | | of right | i, | [place], | | | | | shoulder | [place] | [place] | | | | | Procedures | , [place] [address] | [address] | | | | | MRI Shoulder | [address] | Phone: | | | | | Right wo | [place], | [phone] | | | | | Contrast | [place] | Fax: | | | | | | [address] | [phone] | | | | | | Phone: | | | | | | | [phone] | | | | | | | Fax: | | | | | | | [phone] | | +--------+--------+ + + + + [...] + | 01/15/ | Office | [facility] | Alanis, | Acute pain of right | | 2017 | Visit | MEDICINE [address] [place] [address] | MD [place] | shoulder (Primary | | | | [facility] | [address] [facility] | Dx); Chronic | | | | [place] [address] | [place] [address] | diarrhea; Fatty | | | | [phone] | [phone] | liver; S/P bariatric | | | [...] Procedure: COLONOSCOPY; Surgeon: Luther Brito MD; Location: [facility] MEDICAL PROCEDURE UNIT DILATION AND CURETTAGE OF UTERUS ELBOW SURGERY FINGER TRIGGER RELEASE 2002 FINGER TRIGGER RELEASE 2009 GASTRIC BYPASS SURGERY 2004 HYSTERECTOMY 05/14/1980 JOINT REPLACEMENT Bilateral 2007,2008 KNEE ARTHROSCOPY 2005 LAPAROSCOPY 01/27/2015 LAPAROTOMY 2008 ROTATOR CUFF REPAIR 2005 SPINE SURGERY TONSILLECTOMY 1964 UPPER GASTROINTESTINAL ENDOSCOPY N/A 12/18/2017 Procedure: EGD; Surgeon: Luther Brito MD; Location: [facility] MEDICAL [...] (See Comments) Confused and questionable for seizures Nxillqyqrq-Grzh-Skgieolx Hives and Rash Cephalexin Hives Ciprofloxacin Hives [...] Note: Parts of this documentwere created using LiquidTalk speech recognition software. As a r esult, [...] | | | | | [address] [facility] | | | | | | [place] [address] | | | | | | [phone] | | | | | | | | +--------+---------+ + + + | 12/20/ | Office | Audiology | Elisabet Munson MS | | 2019 | Visit | | [facility] | | | | | | [place] [address] | | | | | | [place] [address] | | | | | | [phone] | | | | | | | | +--------+---------+ + + + | 12/20/ | Office | Otolaryngology | Ulysses Genao MD | | | 2020 | Visit | | [address] [place] | | | | | | [address] [place], | | | | | | [place] [address] | | | | | | [phone] | | | | | | | [...]
--- OUTSIDE RECORDS SUMMARY | ~2019-10-17 | XMS | Encounter Summary ---
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 | Myalgia and | Rosi T, ANP | [address] | | | | | myositis, | [address] | | | | | unspecified | [address] | Mailcode: | | | | | LBP (low | [place], [place] | [facility] | | | | | back pain) | [address] | for Health | | | | | Chronic | | and Healing, | | | | | shoulder | | [address] | | | | | pain Muscle | | [place], [place] | | | | | strain | | [address] | | | | | Radicular | | Phone: | | | | | pain in left | | [phone] | | | | | arm Neck [...] | | pain | [place], [place] | [place], [place] | | | | | | [address] | [address] | | | | | | Phone: | | | | | | | [phone] | | | | | | | Fax: | | | | | | | [phone] | | +--------+--------+ + + + + Encounter Details +--------+---------+ + + + | Date | Type | Department | Care Team | Description | +--------+---------+ + + + | 04/05/ | Office | [facility] Comprehensive | Rosi Antonio, | LBP (low back pain) | | 2012 | Visit | Pain Center at | ANP | (Primary Dx); | | | | [facility] | | Fibromyalgia | | | | [address] | | syndrome 729.1; | | | | Mailcode: CH15P | | Encounter for | | | | [facility] | | Long-Term (Current) | | | | and Healing, | | Use of Opioids; | | | | | | Chronic Bilateral | | | | Floor [place], [place] | | Shoulder Pain; | | | | [address] | | Muscle Strain hips; | | | | [phone] | | Radicular pain in | | [...] to discuss these treatment options. Consult to [facility] physical therapy: A supervised physical therapy [...] [address] Bud[address]enn[address] Mail Code: [place] [address] documented in this encounter Progress Notes Rosi Antonio ANP - 04/05/2013 9:28 AM PDTFormatting of this note might be different fro m the original. [facility] Office Visit 04/05/2013 Belinda Meehan; ; : 1960 Ms. Meehan was referred for pain management consultation by Taqueria Raman NP [address] [place] [address] Chief Complaint Patient presents with New patient [...] to taper off gabapentin 2. Order for [facility] neurology Dr. Taniya Guerrero if falls [...] Dr. 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 As part of today's visit the [facility] new patient questionnaire was review [...] [facility] ? Don't know BP 127/59 [...] Overview Note: Surgery 05/15/08 Dr Ricky Garnett [facility] to get operative reports Osteopenia 08/24/2007 [...] before her lumbar surgeries and recently in [place]. She has short-term relief from the se treatments. I would like her to return to see Dr. Murali Montero to discuss these treatment options. Consult to [facility] physical therapy: A supervised physical therapy [...] privilege to be part of [facility] health care team. Pl ease free to contact me at any time if you have questions or concerns. I spent 30 minutes with the patient of which more than 50% was spent asgiu-wy-qaru in [facility] pain questionnaire, medical record, consultation, discussion, addressing questions and counselling/education. [facility] Callum Kovacs Mail Code: [place] [id number] mith, Maris Lopez MA - 04/05/2013 8:25 [...]
--- OUTSIDE RECORDS SUMMARY | ~2019-10-17 | XMS | Encounter Summary ---
Demographics + + + | Address | [address] | | | [place] [address] | + + + | Home Phone [...] + +------+ + | Care Quality Assurance Qa Lab Analyst Name | Role | Phone [...] 2006 | Visit | Rheumatology [address] | CHIEF ENGINEER RESEARCH | Fibromyalgia; | | | | [address] | | Fibromyalgia | | | | Mailcode: OPC5 | | | | | | Outpatient Clinic | | | | | | [facility], | | | | | | [place] [address] | | | | | | [phone] | | | +--------+---------+ + + + [...] 4-5/5 for all major deltoids, biceps, triceps. Merchandise Displayer slightly weak. Tone is normal. There is [...] cervical spine MRI to be done at [facility]. A few of these patients have [...]
--- OUTSIDE RECORDS SUMMARY | ~2019-10-17 | XMS | Encounter Summary ---
Demographics + + + | Address | [address] | | | [place] [address] | + + + | Home Phone [...] Providers + +------+ + | Care Waiter/Waitress Tourist Class Name | Role | Phone | [...] + | 04/26/ | Refill | [facility] | Alanis, | Medication Refill | | 2018 | | MEDICINE [address] [place] [address] | MD [place] | | | | | [facility] | [address] [place] [address] | | | | | [place] [address] | [place] [address] | | | | | [phone] | [phone] | | | | | | | [...] | | | | | [place] [address] | | | | | | [phone] | | | | | | | | +--------+---------+ + + + | 12/20/ | Office | Audiology | Elisabet Munson MS | | | 2019 | Visit | | [facility] [address] | | | | | | [place] [address] [place] | | | | | | [place] [address] | | | | | | [phone] | | | | | | | | +--------+---------+ + + + | 12/20/ | Office | Otolaryngology | Ulysses Genao MD | | | 2020 | Visit | | [address] [facility] | | | | | | [address] [place], | | | | | | [place] [address] | | | | | | [phone] | | | | | | | | +--------+---------+ + + + documented as of this encounter Visit Diagnoses Not on filedocumented in this encounter"
--- OUTSIDE RECORDS SUMMARY | ~2019-10-17 | XMS | Encounter Summary ---
Demographics + + + | Address | [address] | | | [place] [address] | + + + | Home Phone [...] Providers + +------+ + | Care Authorization Representative Name | Role | Phone | [...] | | | | | elsewhere | [place], [place] | [place], [place] | | | | | classified | [address] | [address] | | | | | Procedures | | Phone: | | | | | [place] | | [phone] | | | | | PSYCHOTHERPY | | Fax: | | | | | , OFFICE | | [phone] | | | | | (12-28) | | | +--------+--------+ + + + + Encounter Details +--------+---------+ + + + | Date | Type | Department | Care Team | Description | +--------+---------+ + + + | 07/15/ | Office | [facility] Center at [facility] | Lukasz Charles, | Major Depressive | | 2006 | Visit | [address] | PhD [address] | Disorder, Recurrent | | | | Mailcode: CH15P | [place], [place] | Episode, Moderate | | | | [facility] | [address] | ([facility]); Cervical | | | | and Healing, | [phone] | 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 Diagnosis: Pennock I: 1. (296.32) Major depressive disorder, recurrent, moderate. 2. (309.24) Adjustment disorder with anxiety. 3. 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 Pennock II: Deferred Pennock III: abdominal pain, migraine headache, low back pain. Pennock IV: low finances Pennock V: GAF 50 Plan: Return in 2 weeks. Check relaxation and activity. Check mood. Continue cognitive/behavio ral therapy. Total time spent with patient was approximately 50 minutes. LUKASZ CHARLES PHD [facility] [address] [place] [address] [facility], [address] [place] [address] documented in this [facility] Plan of Treatment + + +--------+ + + | Name | Type | Priori | Associated Diagnoses | Order Schedule | | | | ty | | | + + +--------+ + + | DC PSYCHOTHERPY, | Procedures | Routin | Major Depressive | Ordered: 07/15/2006 | | OFFICE (45-50) | | e | Disorder, Recurrent | | | | | | Episode, Moderate | | | | | | ([facility]) Cervical | | | | | | Spondylosis without | | | | | | Myelopathy Migraine | | | | | | Headache | | | | | | Adjustment Disorder | | | | | | with Anxiety | | + + +--------+ + + | DC BIOFEEDBACK | Procedures | Routin | Cervical [...]
--- OUTSIDE RECORDS SUMMARY | ~2019-10-17 | XMS | Encounter Summary ---
Demographics + + + | Address | [address] | | | [place] [address] | + + + | Home Phone [...] Team Providers + +------+ + | Care Files Supervisor Name | Role | Phone | [...] + + | 05/06/ | Telephone | [facility] | Alanis, | Other | | 2017 | | MEDICINE [address] [place] [address] | MD [place] | | | | | [facility] | [address] [place] [address] | | | | | [place] [address] | [place] [address] | | | | | [phone] | [phone] | | | | | | | [...] [place] | | | | | | [facility] [address] [place] | | | | | | [place] [address] | | | | | | [phone] | | | | | | | | +--------+---------+ + + + | 12/20/ | Office | Audiology | Elisabet Munson MS | | | 2019 | Visit | | [facility] [address] | | | | | | [place] [address] [address] | | | | | | [place] [address] | | | | | | [phone] | | | | | | | | +--------+---------+ + + + | 12/20/ | Office | Otolaryngology | Ulysses Genao MD | | | 2019 | Visit | | [address] [facility] | | | | | | [address] [place], | | | | | | [place] [address] | | | | | | [phone] | | | | | | | | +--------+---------+ + + + documented as of this encounter Visit Diagnoses Not on filedocumented in this encounter"
--- OUTSIDE RECORDS SUMMARY | ~2019-10-17 | XMS | Encounter Summary ---
Demographics + + + | Address | [address] | | | [place] [address] | + + + | Home Phone [...] Providers + +------+ + | Care Cabinet And Trim Installer Name | Role | Phone | + +------+ + | [place] Thapa | PCP | | | MD | | | + +------+ + Encounter Details +--------+ + + + + | Date | Type | Department | Care Team | Description | +--------+ + + + + | 05/04/ | [facility] | [facility] | Alanis, | Left hip pain | | 2017 | Encounter | [facility] | MD [place] | | | | | [address] [place] | [address] [facility] | | | | | [place], [place] | [place] [address] | | | | | [address] | [phone] | | | | | [phone] | | | +--------+ + + + [...] ordered, please prin t and [facility] signed by [place] Thapa MD at 017 10:49 AM PSTdocumented in this encounter Plan of Treatment +--------+---------+ + + + | Date | Type | Specialty | Care Team | Description | +--------+---------+ + + + | 11/14/ | Office | Internal Medicine | Alanis, | | | 2019 | Visit | | MD [place] | | | | | | [address] [place] [address] [address] | | | | | | [place] [address] | | | | | | [phone] | | | | | | | | +--------+---------+ + + + | 12/20/ | Office | Audiology | Elisabet Munson MS | | 2019 | Visit | | [facility] [address] | | | | | [address] [place] | | | | | | [place] [address] | | | | | | [phone] | | | | | | | | +--------+---------+ + + + | 12/20/ | Office | Otolaryngology | Ulysses [place]oa MD | | | 2020 | Visit | | [address] | | | | | | [address] [place], | | | | | | [place] [address] | | | | | | [phone] | | | | | | | [...]
--- OUTSIDE RECORDS SUMMARY | ~2019-10-17 | XMS | Encounter Summary ---
Demographics + + + | Address | [address] | | | [place] [address] | + + + | Home Phone [...] Providers + +------+ + | Care Brim Stitcher Name | Role | Phone | [...] | | | | | Encounter | [place] | [place] | | | | | for | [address] | [address] | | | | | long-term | | Phone: | | | | | (current) | | [phone] | | | | | use of other | | Fax: | | | | | medications | | [phone] | | | | | LBP (low [...] 06/23/ | Office | [facility] at [facility] | Lukasz Charles, | Major depressive | | 2013 | Visit | [address] | PhD [address] | disorder, recurrent | | | | Mailcode: CH15P | [place], [place] | episode, moderate | | | | [place] [facility] | [address] | ([facility]) (Primary Dx); | | | | and Healing, | [phone] | LBP (low back pain); | | | | | | Adjustment disorder | | | | Floor [place], [place] | | with anxiety | | | | [address] | | | | | | [phone] | | | +--------+---------+ + + + [...] an appropriate candidate for a stimulator. Diagnosis: [place] I: 1. (296.32) Major depressive disorder, recurrent, moderate. 2. (309.24) Adjustment disorder with anxiety. [place] II: Deferred [place] III: abdominal pain, migraine headache, low back pain, fibromyalgia. [place] IV: low finances [place] V: GAF 55-60 Plan: return in 1 month. Check mood, pain, activity, stress management. Ask about spinal cord stimulator, any changes at home. Continue cognitive/behavioral therapy. Total time spent with patient was approximately 45 minutes. LUKASZ CHARLES PHD [facility] [address] [place] [address], [address] [place] [address] documented in this en counter Plan of [...]
--- OUTSIDE RECORDS SUMMARY | ~2019-10-17 | XMS | Encounter Summary ---
Demographics + + + | Address | [address] | | | [place] [address] | + + + | Home Phone [...] Team Providers + +------+ + | Care Teaching Associate Name | Role | Phone | [...] | Registratio | [facility] | [address] | | | | n | [address] Mailcode: RPB07 | [place], [place] | | | | | [place], [place] | [address] | | | | | [address] | [phone] | | | | | [phone] | | | +--------+ + + + [...] + | [facility] | [address] | [place] [address] | | | LABORATORY | | | [...] | [facility] | [address] [facility] | [place] [address] | | | PATHOLOGY | [address] | | | + + + + + | [facility] | [address] [facility] | [place] [address] | | | PATHOLOGY | [address] [...] MEDICAL CENTER DEPARTMENT OF | [address] | [place] [address] | | | PATHOLOGY | [address] | | | + + + + + | [facility] DEPARTMENT OF | [address] | [place] [address] | | | PATHOLOGY | [address] [...] [address] | [place] [address] | | | PATHOLOGY | [address] | | | + + + + + | [facility] DEPARTMENT OF | [address] | [place] [address] | | | PATHOLOGY | [address] | | | + + + + + documented in this encounter Visit Diagnoses Not on filedocumented in this encounter"
--- OUTSIDE RECORDS SUMMARY | ~2019-10-17 | XMS | Encounter Summary ---
Demographics + + + | Address | [address] | | | [place] [address] | + + + | Home Phone [...] Providers + +------+ + | Care Steel Molder Name | Role | Phone | [...]
--- OUTSIDE RECORDS SUMMARY | ~2019-10-17 | XMS | Encounter Summary ---
Demographics + + + | Address | [address] | | | [place] [address] | + + + | Home Phone [...] Providers + +------+ + | Care Civil Rights Attorney Name | Role | Phone | [...] | | | [facility] | [place], [place] | | | | | [address] | [address] | | | | | [address] | [phone] | | | | | Physician's | | | | | | Pavilion, 1st floor | | | | | | [place], [place] | | | | | | [address] | | | | | | [phone] | | | +--------+ + + + [...]
--- OUTSIDE RECORDS SUMMARY | ~2019-10-17 | XMS | Encounter Summary ---
Demographics + + + | Address | [address] | | | [place] [address] | + + + | Home Phone [...] Providers + +------+ + | Care Assembler Convertible Top Name | Role | Phone | [...] Pain; Status Post | | | | [place], [place] | | Bariatric Surgery | | | | [address] | | | | | | [phone] | | | +--------+------+ + + + [...] Performed At | + + + | 319333 Estimated GFR > 60 mL/min/1.73 sq m if non- | [facility] | | Dutch 100688 Estimated GFR > 60 mL/min/1.73 sq m if | DEPARTMENT OF | | Dutch GFR is estimated using the MDRD equation [...] | + + + + + | [facility] | [address] | [place] [address] | | | PATHOLOGY | [address] | | | + + + + + | [facility] DEPARTMENT | [address] | [place] [address] | | | PATHOLOGY | [address] | | | + + + + + INR (08/28/2008 3:31 PM PDT) + + + + + + | Component | Value | Ref Range | Performed | Pathologist | | | | | At | Signature | + + + + + + | INR | 0.96Comment: | 0.90 - 1.20 INR | [facility] | | | | INR Therapeutic [...] | + + + + + | [facility] | [address] [facility] | [place] [address] | | | PATHOLOGY | [address] | | | + + + + + | [facility] DEPARTMENT OF | [address] | [place] [address] | | | PATHOLOGY | [address] | | | + + + + + documented in this encounter Visit Diagnoses + + | Diagnosis | + + | Chronic abdominal pain Abdominal pain, unspecified site | + + | Status post bariatric surgery Bariatric surgery status | + + documented in this encounter"
--- OUTSIDE RECORDS SUMMARY | ~2019-10-17 | XMS | Encounter Summary ---
Demographics + + + | Address | [address] | | | [place] [address] | + + + | Home Phone [...] Providers + +------+ + | Care Regulatory Leader Name | Role | Phone | [...]
--- OUTSIDE RECORDS SUMMARY | ~2019-10-17 | XMS | Encounter Summary ---
Demographics + + + | Address | [address] | | | [place] [address] | + + + | Home Phone [...] Providers + +------+ + | Care Barrel Endshake Adjuster Name | Role | Phone | [...] | | | [place], | [address] | | | | | Sacroiliitis | Carlos Armijo MD | [place], | | | | | , not | [address] | [place] | | | | | elsewhere | [facility] | [address] | | | | | classified | [place] | Phone: | | | | | ([facility]) | [address] | [phone] | | | | | Procedures | Phone: | Fax: | | | | | ME INJECT SI | [phone] | [phone] | | | | | JOINT | Fax: | | | | | | ARTHRGRPHY&/ | [phone] | | | | | | ANES/STEROID | | | | | | | W/IMAGE ME | | | | | | [...] + + | 02/27/ | Hospital | [facility] | Joe, | Bilateral | | 2015 | Encounter | MED CTR XRAY [address] | MARY Montero [address] | sacroiliitis (HCC) | | | | [place] | [facility] | (Primary Dx); | | | | [place] [address] | [place] [address] | Chronic low back | | | | [phone] | [phone] | pain; SCOLIOSIS , | | | | | | IDIOPATHIC; S/P | | | | | [facility]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; | | | [...] | | | | | [place] [address] | | | | | | [phone] | | | | | | | | +--------+---------+ + + + | 12/20/ | Office | Audiology | Elisabet Munson MS | | | 2019 | Visit | | [facility] [address] | | | | | | ST [place] [address] [place] | | | | | | [place] [address] | | | | | | [phone] | | | | | | | | +--------+---------+ + + + | 12/20/ | Office | Otolaryngology | Ulysses Genao MD | | | 2019 | Visit | | [address] [facility] | | | | | | [address] [place], | | | | | | [place] [address] | | | | | | [phone] | | | | | | | [...] fluoroscopy suite for fluoroscopically guided bilateral sacroiliac [facility] | | joint steroid injections as [...] + | [address] | [address] | [place] | [phone] | | [facility] | | [address] | | | - IMAGING | | [...] fluoroscopy suite for fluoroscopically guided bilateral sacroiliac [facility] | | joint steroid injections as [...] | + + + + + | [address] | [address] | [place] | [phone] | | [facility] | | [address] | | | - IMAGING | | [...]
--- OUTSIDE RECORDS SUMMARY | ~2019-10-17 | XMS | Encounter Summary ---
Demographics + + + | Address | [address] | | | [place] [address] | + + + | Home Phone [...] Providers + +------+ + | Care Senior Science Consultant Name | Role | Phone | [...] + + | 04/04/ | Telephone | [facility] INTER[facility] | Alanis, | Toe Fracture | | 2019 | | MEDICINE [address] [place] [address] | MD [place] | | | | | [facility] | [address] [place] [address] | | | | | [place] [address] | [place] [address] | | | | | [phone] | [phone] | | | | | | | [...] | | | | | [place] [address] | | | | | | [phone] | | | | | | | | +--------+---------+ + + + | 12/20/ | Office | Audiology | Elisabet Munson MS | | | 2019 | Visit | | [facility] [address] | | | | | | ST [place] | | | | | | [place] [address] | | | | | | [phone] | | | | | | | | +--------+---------+ + + + | 12/20/ | Office | Otolaryngology | Ulysses Genao MD | | | 2020 | Visit | | [address] [facility] | | | | | | [address] [place], | | | | | | [place] [address] | | | | | | [phone] | | | | | | | | +--------+---------+ + + + documented as of this encounter Visit Diagnoses Not on filedocumented in this encounter"
--- OUTSIDE RECORDS SUMMARY | ~2019-10-17 | XMS | Encounter Summary ---
Demographics + + + | Address | [address] | | | [place] [address] | + + + | Home Phone [...] Providers + +------+ + | Care Shoe Clerk Name | Role | Phone | [...] Pavilion | | | | | | [place], [place] | | | | | | [address] | | | | | | [phone] | | | +--------+ + + + [...]
--- OUTSIDE RECORDS SUMMARY | ~2019-10-17 | XMS | Encounter Summary ---
Demographics + + + | Address | [address] | | | [place] [address] | + + + | Home Phone [...] Providers + +------+ + | Care Compliance Examiner Name | Role | Phone | [...] | | | Stay [address] | [place], [place] | Examination; HTN | | | | [address] | [address] | (Hypertension); | | | | Mailcode: [id number] | [phone] | Chronic Pain | | | | [facility] | | | | | | [address] [facility] [place] | | | | | | [address] | | | | | | [phone] | | | +--------+---------+ + + + [...] dietary restrictions or a bowel preparation. Your [facility] gical team will give you additional [...] PM please call your surgeons' office for [id number]. PARKING Parking for patients and visitors is available in the [facility] Parking structure located across from [...] ADVICE FOR DAY OF SURGERY: Remove nail cook islander from at least one fingernail (if [...] surgeries scheduled to take place on the kelly at the [facility]: Surgeries scheduled in the [facility] ([address] [place] [address]): registration is located on the 4th floor of [facility] (Day Surgery). Surgeries scheduled in the [facility]: registration is located on the 9th floor . For surgeries scheduled to take place at the [facility]: registration i s located on the 4th floor (Surgery Center). AVOID THESE MEDICATIONS FOR 7 DAYS BEFORE SURGERY PRODUCTS CONTAINING ASPIRIN Jacquelyn-Ravenna, Anacin, Anexsia with Codeine, Len nos, Aspirin, Aspirin suppositories, Ascri ptin, Aspergum, Axotal, B-A-C, Baby Aspirin, Lucila, BC Powder, Bexophene, Buffaprin, Bufferi n, Buffinol, Cama-Arthritis Strength, Congespirin, Welch, Coricidin, Damason, Darvon, Dristan , Anastasia-Gesic, Digel, Dolprin #3 Tablets, Donatab, Doxaphene, Duragesic, Easprin, Ecotrin, Dipika grin Forte, Emiprin, Emprazil, Equagesic, Equazine M, Excedrin, Fiogesic, Fiorgen PH, Fioric et, Fiorinal, 4-Way Cold Tablet Gemnisyn, Indocin, Liquprin, Lortab ASA, Magnaprin, Marnal, Meprobamate, Midol, Momentum, N orgesic, [place], Orphengesic, Pabalate, P-A-C, Percodan, Presalin, Robaxasil, Roxiprin, Bunny eto, Salocol SK-65 Compound, Sine-Aid, Sine-Off,, Tangent, Supac, Talwin Compound, Trigesic, Tolectin , Traiminicin, Vanquish, ZORprin, Zomax PRODUCTS CONTAINING IBUPROFEN Advil, Aleve, Haltran, Medipren, Midol, Motrin, Naproxyn, Nuprin, Rufen OTHER PRODUCTS WHICH MAY PROMOTE BLEEDING Vitamin E, Gingko Biloba, Marine Fatty Acids, Tampa-3 Fish Oil Supplements documented in this encounter [...] + | [facility] DEPARTMENT | [address] [facility] | [place] [address] | | | PATHOLOGY | [address] | | | + + + + + | [facility] DEPARTMENT OF | [address] [facility] | [place] [address] | | | PATHOLOGY | [address] [...] DEPARTMENT OF | [address] | [place] [address] | | | PATHOLOGY | [address] | | | + + + + + | [facility] DEPARTMENT | [address] | [place] [address] | | | PATHOLOGY | [address] [...] | | | DEPARTMENT | | | [place] | | | OF | | | [...] + + | [facility] | [address] | [place] [address] | | | PATHOLOGY | [address] | | | + + + + + | [facility] | [address] | [place] [address] | | | PATHOLOGY | [address] [...] DEPARTMENT OF | [address] | [place] [address] | | | PATHOLOGY | [address] | | | + + + + + | [place] DEPARTMENT OF | [address] | [place] [address] | | | PATHOLOGY | [address] [...] view image for the detailed interpretation from [employer] results. | CARDIOLOGY | | | | + + + + + + + + | Performing | Address | City/State/Zipcode | Phone Number | | Organization | | | | + + + + + | [facility] DEPT OF | [address] | [place], [place] | | | CARDIOLOGY | [address] | [address] | | + + + + + | [facility] DEPT OF | [address] | [place], [place] | | | CARDIOLOGY | [address] | [address] | | + + + + + [...]
--- OUTSIDE RECORDS SUMMARY | ~2019-10-17 | XMS | Encounter Summary ---
Demographics + + + | Address | [address] | | | [place] [address] | + + + | Home Phone [...] Providers + +------+ + | Care Dry Cans Operator Name | Role | Phone | [...] Lab findings, | | 2007 | | [place] [address] | [address] | teaching, guidance, | | | | Ave Mailcode: CH4S | [address] | and counseling | | | | [facility] | [place], [place] | | | | | and Healing, | [address] | | | | | [facility] | [phone] | | | | | [place], [place] | | | | | | [address] | | | | | | [phone] | | | +--------+ + + + [...]
--- OUTSIDE RECORDS SUMMARY | ~2019-10-17 | XMS | Encounter Summary ---
Demographics + + + | Address | [address] | | | [place] [address] | + + + | Home Phone [...] Team Providers + +------+ + | Care Kitchenwhere Maker Name | Role | Phone | + +------+ + | Maria Esther Cintron MD | PCP | | + +------+ + Encounter Details +--------+ + + + + | Date | Type | Department | Care Team | Description | +--------+ + + + + | 10/27/ | Telephone | [facility] | Chris Padgett, | | | 2008 | | [place] [address] | [address] [facility] | | | | | [place] Mailcode: CH4S | [address] | | | | | [facility] | [place], [place] | | | | | and Healing, | [address] | | | | | Building , 6th | [phone] | | | | | Floor [place], [place] | | | | | | [address] | | | | | | [phone] | | | +--------+ + + + [...]
--- OUTSIDE RECORDS SUMMARY | ~2019-10-17 | XMS | Encounter Summary ---
Demographics + + + | Address | [address] | | | [place] [address] | + + + | Home Phone [...] Providers + +------+ + | Care Small Business Banking Officer Name | Role | Phone | [...] | | | | | Procedures | [address] | | | | | | CONSULT TO | [address] | | | | | | NEUROLOGY | [place], [place] | | | | | | | [address] | | +--------+--------+ + + + + Reason for Visit + + + | Reason | Comments | + + + | Back pain | | + + + Encounter Details +--------+---------+ + + + | Date | Type | Department | Care Team | Description | +--------+---------+ + + + | 10/03/ | Office | [facility] Comprehensive | Miranda Lambert, | [...] syndrome X | | | | Floor [place], [place] | | 250.80; Major | | | | [address] | | depressive disorder, | | | | [phone] | | recurrent episode, | | | [...] then stop. Schedule an appointment with Dr. eCsar SHEEHAN [facility] Neurology - If you continue [...] Belinda Meehan is a 49 y.o. female [facility] Comprehensive Pain [...] it no help 4. Dr. Ricky SHEEHAN [facility] spine did spine surgery last seen [...] 08/2007 right knee Hx lumbar fusion 05/2008 [id number] with bone spur removals Hx appendectomy Hx cholecystectomy Hx section Hx hysterectomy Gastric bypass Mayra Padgett wt 278 01/18 Paniculectomy Family History Problem Relation Cancer Mother Heart Father Additional Family History Father Migraine Additional Family History Mother Migraine Taniya Guerrero MD [facility] Neurology 2007 evaluation of migraines: [...] the names of 3 headache specialists in [place]- Dr. Koby García, Dr. Dakota Sweet and [...] a neurologist Dr. Taniya Guerrero here at [facility] at that time headaches were due to medication rebound with long-term use of opioids and m igraine abortive [...] and there is no evidence to support long-term benefit of opioids for this pa in [...] to schedule a follow up appointment with [facility] neurologists Dr. Guerrero, for falls [...] off gabapentin 2. Order for [facility] neurology Dr. Taniya Guerrero if [...] [facility] Mail code CH 4P [facility] [address] [place] [address] Ailyn Foster 1:03 PM PDTCMA History: [...]
--- OUTSIDE RECORDS SUMMARY | ~2019-10-17 | XMS | Encounter Summary ---
Demographics + + + | Address | [address] | | | [place] [address] | + + + | Home Phone [...] Team Providers + +------+ + | Care Shore Worker Name | Role | Phone | [...] [id number] | | | | | | [place], [place] | | | | | | [address] | | | | | | [phone] | | | +--------+ + + + [...]
--- OUTSIDE RECORDS SUMMARY | ~2019-10-17 | XMS | Encounter Summary ---
Demographics + + + | Address | [address] | | | [place] [address] [...] Providers + +------+ + | Care Heat Treater Apprentice Name | Role | Phone | [...] | | | | [address] Physician's | [place], [place] | | | | | [address] | [address] | | | | | [place], [place] | [phone] | | | | | [address] | | | | | | [phone] | | | +--------+ + + + [...]
--- OUTSIDE RECORDS SUMMARY | ~2019-10-17 | XMS | Encounter Summary ---
Demographics + + + | Address | [address] | | | [place] [address] | + + + | Home Phone [...] Providers + +------+ + | Care Solid Waste Facility Operator Name | Role | Phone | [...] | | | [facility] | [place], [place] | | | | | Pavilion [address] | [address] | | | | | [address] | [phone] | | | | | Physician's | | | | | | Pavilion, 1st floor | | | | | | [place], [place] | | | | | | [address] | | | | | | [phone] | | | +--------+ + + + [...]
--- OUTSIDE RECORDS SUMMARY | ~2019-10-17 | XMS | Encounter Summary ---
Demographics + + + | Address | [address] | | | [place] [address] | + + + | Home Phone [...] Providers + +------+ + | Care Piece Work Inspector Name | Role | Phone | + +------+ + | Sulaiman Carrera MD | PCP | | + +------+ + Encounter Details +--------+ + + + + | Date | Type | Department | Care Team | Description | +--------+ + + + + | 01/29/ | Ancillary | Registration [id number] | Beto Meeks MD | | | 2005 | Registratio | [facility] | [address] | | | | n | [address] Mailcode: RPB07 | [place], [place] | | | | | [place], [place] | [address] | | | | | [address] | [phone] | | | | | [phone] | | | +--------+ + + + [...] | | | | Test performed by [facility] | | | | | | Laboratories. | | | | + + + + + + + + | Specimen | + + | | + + + + + + + | Performing | Address | City/State/Zipcode | Phone Number | | Organization | | | | + + + + + | [facility] | [address] | [place], [place] | | | [facility] | | [address] | | + + + + + [...] | uIU/ml | | | | | [facility] | | | | | | Laboratories. | | | | + + + + + + + + | Specimen | + + | | + + + + + + + | Performing | Address | City/State/Zipcode | Phone Number | | Organization | | | | + + + + + | [facility] | [address] | [place] [address] | | | LABORATORY | | | [...] BASO # | 0.0 | <0.3 | [facility] | | | | | | DEPARTMENT [...] [facility] DEPARTMENT OF | [address] [facility] | [place] [address] | | | PATHOLOGY | [address] | | | + + + + + | [facility] DEPARTMENT OF | [address] [facility] | [place] [address] | | | PATHOLOGY | [address] [...] DEPARTMENT OF | [address] | [place], [place] [address] | | | PATHOLOGY | [address] | | | + + + + + | [facility] DEPARTMENT OF | [address] | [place] [address] | | | PATHOLOGY | [address] [...] Performed At | + + + | [id number] Estimated GFR > 60 mL/min/1.73 sq m if non- | [facility] | | [id number] Estimated GFR > 60 mL/min/1.73 sq m [...] [facility] DEPARTMENT OF | [address] | [place] [address] | | | PATHOLOGY | [address] | | | + + + + + | [facility] DEPARTMENT OF | [address] | [place] [address] | | | PATHOLOGY | [address] | | | + + + + + documented in this encounter Visit Diagnoses Not on filedocumented in this encounter"
--- OUTSIDE RECORDS SUMMARY | ~2019-10-17 | XMS | Encounter Summary ---
Demographics + + + | Address | [address] | | | [place] [address] | + + + | Home Phone [...] Providers + +------+ + | Care Associate Scientist Name | Role | Phone | [...] + + | 04/02/ | Telephone | [facility] | Alanis, | Other | | 2018 | | MEDICINE [address] [place] [address] | MD Petrona | | | | | [facility] | [address] [place] [address] | | | | | [place] [address] | [place] [address] | | | | | [phone] | [phone] | | | | | | | [...] | | [facility] [address] [place] | | | | | | [place] [address] | | | | | | [phone] | | | | | | | | +--------+---------+ + + + | 12/20/ | Office | Audiology | Elisabet Munson MS | | | 2019 | Visit | | [facility] [address] | | | | | | [place] [address] [address] | | | | | | [place] [address] | | | | | | [phone] | | | | | | | | +--------+---------+ + + + | 12/20/ | Office | Otolaryngology | Ulysses Genao MD | | | 2019 | Visit | | [address] [facility] | | | | | | [address] [place], | | | | | | [place] [address] | | | | | | [phone] | | | | | | | | +--------+---------+ + + + documented as of this encounter Visit Diagnoses Not on filedocumented in this encounter"
--- OUTSIDE RECORDS SUMMARY | ~2019-10-17 | XMS | Encounter Summary ---
Demographics + + + | Address | [address] | | | [place] [address] | + + + | Home Phone [...] Providers + +------+ + | Care Supervisor Electronics Testing Name | Role | Phone | [...] [id number] | | | | | | [place], [place] | | | | | | [address] | | | | | | [phone] | | | +--------+ + + + [...]
--- OUTSIDE RECORDS SUMMARY | ~2019-10-17 | XMS | Encounter Summary ---
Demographics + + + | Address | [address] | | | [place] [address] | + + + | Home Phone [...] Team Providers + +------+ + | Care Mainspring Winder And Oiler Name | Role | Phone | [...] + + | 05/05/ | Telephone | [facility] | Alanis, | Incontinence | | 2018 | | MEDICINE [address] [place] [address] | MD Petrona | Supplies | | | | [facility] | [address] [place] [address] | | | | | [place] [address] | [place] [address] | | | | | [phone] | [phone] | | | | | | | [...] | | | | | [place] [address] | | | | | | [phone] | | | | | | | | +--------+---------+ + + + | 12/20/ | Office | Audiology | Elisabet Munson MS | | | 2019 | Visit | | [facility] [address] | | | | | | [address] [place] | | | | | | [place] [address] | | | | | | [phone] | | | | | | | | +--------+---------+ + + + | 12/20/ | Office | Otolaryngology | Ulysses Genao MD | | | 2019 | Visit | | [address] [place] | | | | | | [address] [place], | | | | | | [place] [address] | | | | | | [phone] | | | | | | | [...]
--- OUTSIDE RECORDS SUMMARY | ~2019-10-17 | XMS | Encounter Summary ---
Demographics + + + | Address | [address] | | | [place] [address] | + + + | Home Phone [...] Team Providers + +------+ + | Care Zinc Furnace Charger Name | Role | Phone | [...] as of this encounter Progress Notes Interface, Obstetrician In - 01/12/2005 9:01 AM PDT [id number] [facility] Date: 05/20/2004 Clinic: Morbid [...] Surgery Chris Padgett M.D. MS / HS [id number] / [id number] / [id number] / [id number] documented i n this encounter Plan of Treatment Not on filedocumented as of this encounter Visit Diagnoses Not on filedocumented in this encounter"
--- OUTSIDE RECORDS SUMMARY | ~2019-10-17 | XMS | Encounter Summary ---
Demographics + + + | Address | [address] | | | [place] [address] | + + + | Home Phone [...] Providers + +------+ + | Care Mobility Specialist Name | Role | Phone | [...] (has been | | 2007 | | [place] [address] | [address] | in the bathroom | | | | Ave Mailcode: CH4S | [facility] | since one this | | | | [facility] | [place], [place] | morning with | | | | and Healing, | [address] | IBS/dumping syndrome | | | | Building 1, | [phone] | symptoms) | | | | Floor [place], [place] | | | | | | [address] | | | | | | [phone] | | | +--------+ + + + [...]
--- OUTSIDE RECORDS SUMMARY | ~2019-10-17 | XMS | Encounter Summary ---
Demographics + + + | Address | [address] | | | [place] [address] | + + + | Home Phone [...] Providers + +------+ + | Care Baseball Player Name | Role | Phone | [...] + + | 11/03/ | Telephone | [facility] | Alanis, | Headache | | 2019 | | MEDICINE [address] [place] [address] | MD Petrona | | | | | [facility] | [address] [facility] | | | | | [place] [address] | [place] [address] | | | | | [phone] | [phone] | | | | | | | [...] | | | | | [place] [address] | | | | | | [phone] | | | | | | | | +--------+---------+ + + + | 12/20/ | Office | Audiology | Elisabet Munson MS | | | 2019 | Visit | | [facility] [address] | | | | | | [place] [address] [place] | | | | | | [place] [address] | | | | | | [phone] | | | | | | | | +--------+---------+ + + + | 12/20/ | Office | Otolaryngology | Ulysses Genao MD | | | 2020 | Visit | | [address] [facility] | | | | | | [address] [place], | | | | | | [place] [address] | | | | | | [phone] | | | | | | | | +--------+---------+ + + + documented as of this encounter Visit Diagnoses Not on filedocumented in this encounter"
--- OUTSIDE RECORDS SUMMARY | ~2019-10-17 | XMS | Encounter Summary ---
Demographics + + + | Address | [address] | | | [place] [address] | + + + | Home Phone [...] Providers + +------+ + | Care Spray Operator Name | Role | Phone | [...] Vomiting | | 2018 | | MEDICINE [address] [place] [address] | MD Petrona | | | | | [facility] | [address] [place] [address] | | | | | [place] [address] | [place] [address] | | | | | [phone] | [phone] | | | | | | | [...] | | | | | [place] [address] | | | | | | [phone] | | | | | | | | +--------+---------+ + + + | 12/20/ | Office | Audiology | Elisabet Munson MS | | | 2019 | Visit | | [facility] [address] | | | | | | [address] [place] [address] [place] | | | | | | [place] [address] | | | | | | [phone] | | | | | | | | +--------+---------+ + + + | 12/20/ | Office | Otolaryngology | Ulysses Genao MD | | | 2020 | Visit | | [address] [facility] | | | | | | [address] [place], | | | | | | [place] [address] | | | | | | [phone] | | | | | | | | +--------+---------+ + + + documented as of this encounter Visit Diagnoses Not on filedocumented in this encounter"
--- OUTSIDE RECORDS SUMMARY | ~2019-10-17 | XMS | Encounter Summary ---
Demographics + + + | Address | [address] | | | [place] [address] | + + + | Home Phone [...] Providers + +------+ + | Care Non Acoustic Operator Name | Role | Phone | [...] | | | | | Procedures | [facility] [place] | [address] | | | | | CONSULT TO | [address] | for Health | | | | | BONE | Phone: | and Healing, | | | | | DENSITOMETRY | [phone] | Building 1 | | | | | | Fax: | [place], [place] | | | | | | [phone] | [address] | | | | | | | Phone: | | | | | | | [phone] | | | | | | | Fax: | | | | | | | [phone] | +--------+ + + + + + [...] | | | [facility] | [place], [place] | Bypass for Obesity | | | | and Healing, | [address] | | | | | [facility] | [phone] | | | | | Floor [place], [place] | | | | | | [address] | | | | | | [phone] | | | +--------+---------+ + + + [...]
--- OUTSIDE RECORDS SUMMARY | ~2019-10-17 | XMS | Encounter Summary ---
Demographics + + + | Address | [address] | | | [place] [address] | + + + | Home Phone [...] | Organization | [facility] | | | [...] Providers + +------+ + | Care Brand Marketing Specialist Name | Role | Phone [...] + + | 03/15/ | Telephone | [facility] | Alanis, | Appointment | | 2018 | | MEDICINE [address] [place] [address] | MD Petrona | | | | | [facility] | [address] [place] [address] | | | | | [place] [address] | [place] [address] | | | | | [phone] | [phone] | | | | | | | [...] | | | | | [place] [address] | | | | | | [phone] | | | | | | | | +--------+---------+ + + + | 12/20/ | Office | Audiology | Elisabet Munson MS | | | 2020 | Visit | | [facility] [address] | | | | | | [place] [address] [place] | | | | | | [place] [address] | | | | | | [phone] | | | | | | | | +--------+---------+ + + + | 12/20/ | Office | Otolaryngology | Ulysses Genao MD | | | 2020 | Visit | | [address] [place] | | | | | | [address] [place], | | | | | | [place] [address] | | | | | | [phone] | | | | | | | | +--------+---------+ + + + documented as of this encounter Visit Diagnoses Not on filedocumented in this encounter"
--- OUTSIDE RECORDS SUMMARY | ~2019-10-17 | XMS | Encounter Summary ---
Demographics + + + | Address | [address] | | | [place] [address] | + + + | Home Phone [...] Providers + +------+ + | Care Warranty Clerk Name | Role | Phone | [...] Rd | | | | | | [facility] | | | | | | [place] [place] Floor | | | | | | [place], [place] | | | | | | [address] | | | | | | [phone] | | | +--------+ + + + [...]
--- OUTSIDE RECORDS SUMMARY | ~2019-10-17 | XMS | Encounter Summary ---
Demographics + + + | Address | [address] | | | [place] [address] | + + + | Home Phone [...] + + | 09/14/ | Hospital | [facility] | Ruben Tobias | | | 2001 | Encounter | MED CTR SLEEP | MD Raji [address] | | | | | [place] [address] | [address] [facility] | | | | | [place], [place] | [place] [address] | | | | | [address] | [phone] | | | | | [phone] | | | +--------+ + + + [...] | | | | | [place] [address] | | | | | | [phone] | | | | | | | | +--------+---------+ + + + | 12/20/ | Office | Audiology | Elisabet Munson MS | | | 2019 | Visit | | [facility] [address] | | | | | | [address] [place] [place] | | | | | | [place] [address] | | | | | | [phone] | | | | | | | | +--------+---------+ + + + | 12/20/ | Office | Otolaryngology | Ulysses Genao MD | | | 2019 | Visit | | [address] [place] | | | | | | [address] [place], | | | | | | [place] [address] | | | | | | [phone] | | | | | | | | +--------+---------+ + + + documented as of this encounter Visit Diagnoses Not on filedocumented in this encounter"
--- OUTSIDE RECORDS SUMMARY | ~2019-10-17 | XMS | Encounter Summary ---
Demographics + + + | Address | [address] | | | [place] [address] | + + + | Home Phone [...] | | | Clinical Nutrition | [place], [place] | | | | | [address] | [address] | | | | | Loop Mailcode: OPC5 | [phone] | | | | | Outpatient Clinic | | | | | | [facility] | | | | | | [place] [address] | | | | | | [phone] | | | +--------+ + + + [...] | | | | | performed by [facility] | | | [...] [facility] | [address] | [place], [place] | | | UN[facility] INT[facility] | | [address] | | + + + + + HEMOGLOBIN A1C (05/31/2002 3:21 PM PST) + + + + + + | Component | Value | Ref Range | Performed | Pathologist | | | | | At | Signature | + + + + + + | HEMOGLOBIN | 6.0Comment: Test | <7.1 % | | | | A1C | performed by [place] | | | | | | Kerbs [...] | [facility] | [address] | [place] [address] | | | LABORATORY | | | [...] | [facility] DEPARTMENT OF | [address] | [place] [address] | | | PATHOLOGY | [address] | | | + + + + + | [facility] DEPARTMENT OF | [address] | [place] [address] | | | PATHOLOGY | [address] [...] | [facility] | [address] | [place] [address] | | | PATHOLOGY | [address] | | | + + + + + | [facility] | [address] [facility] | [place] [address] | | | PATHOLOGY | [address] | | | + + + + + documented in this encounter Visit Diagnoses Not on filedocumented in this encounter"
--- OUTSIDE RECORDS SUMMARY | ~2019-10-17 | XMS | Encounter Summary ---
Demographics + + + | Address | [address] | | | [place] [address] | + + + | Home Phone [...] Providers + +------+ + | Care Technical Marketing Consultant Name | Role | Phone [...] (Primary Dx); Spinal | | | | [facility] | | Fusion Lumbar spine | | | | [address] | | ; Hx Arthroplasty | | | | Mailcode: CH15P | | of both Knees; | | | | Center for [facility] | | Fibromyalgia | | | | and Healing, | | syndrome 729.1; | | | | | | Abdominal Pain, | | | | Floor [place], [place] | | dumping syndrome Hx | | | | [address] | | of gastric bypass; | | | | [phone] | | Dumping Syndrome; | | | [...] removal on 05/15/2008 Dr. Betty Thomas MD [facility], after having problems with nu mbness, [...] a migraine sp ecialist this week in [place], Dr Lucio [place]. Next area of chronic [...] drawing has be completed, which I reviewed. [facility] Brief Pain Inventory: (ten= worst possible [...] 3. Mental Health care: Dr Ogden psychology [facility] last visit today [...] 300 mg) by oral route once daily hdjsrnuztp-bkspeshdtdceq-ubnbkcxo (FIORICET) 50-325-40 mg Oral Tablet take 2 [...] 278 01/18 Paniculectomy Hx lumbar fusion 05/2008 L1-B5tbdald with bone spur removals Family History Problem [...] psychologist when ever sh e comes to [place] for medical care. She has a strong [...] [facility] Mail code CH 4P [facility] [address] [facility] [address] Ty Mendez - 12/2008 9:11 AM PSTCMA History: PMH/PSH/SH/FH review Patient had lumbar fusion in May 22. She also reports tooth abcess. She has script for an tibiotic tx waiting for her in [place]. 1. Has your pain changed from your [...]
--- OUTSIDE RECORDS SUMMARY | ~2019-10-17 | XMS | Encounter Summary ---
Demographics + + + | Address | [address] | | | [place] [address] | + + + | Home Phone [...] Providers + +------+ + | Care Mortgage Processor Name | Role | Phone | [...] [address] | | | | | | [place], [place] | | | | | | [address] | | | | | | [phone] | | | +--------+ + + + [...]
--- OUTSIDE RECORDS SUMMARY | ~2019-10-17 | XMS | Encounter Summary ---
Demographics + + + | Address | [address] | | | [place] [address] | + + + | Home Phone [...] Providers + +------+ + | Care Marker Machine Name | Role | Phone | [...] Symptoms | | 2018 | | MEDICINE [address] [place] [address] | MD Petrona | | | | | [facility] | [address] [place] [address] | | | | | [place] [address] | [place] [address] | | | | | [phone] | [phone] | | | | | | | [...] | | | | | [place] [address] | | | | | | [phone] | | | | | | | | +--------+---------+ + + + | 12/20/ | Office | Audiology | Elisabet Munson MS | | | 2019 | Visit | | [facility] [address] | | | | | | [place] [address] [place] | | | | | | [place] [address] | | | | | | [phone] | | | | | | | | +--------+---------+ + + + | 12/20/ | Office | Otolaryngology | Ulysses Genao MD | | | 2020 | Visit | | [address] [facility] | | | | | | [address] [place], | | | | | | [place] [address] | | | | | | [phone] | | | | | | | | +--------+---------+ + + + documented as of this encounter Visit Diagnoses Not on filedocumented in this encounter"
--- OUTSIDE RECORDS SUMMARY | ~2019-10-17 | XMS | Encounter Summary ---
Demographics + + + | Address | [address] | | | [place] [address] | + + + | Home Phone [...] Providers + +------+ + | Care Fur Coat Sewer Name | Role | Phone | + +------+ + | Petrona Thapa | PCP | | | MD | | | + +------+ + Encounter Details +--------+ + + + + | Date | Type | Department | Care Team | Description | +--------+ + + + + | 05/04/ | [facility] | [facility] | Alanis, | Left hip pain | | 2017 | Encounter | [facility] | MD Petrona | | | | | [address] [place] | [address] [facility] | | | | | [place], [place] | [place] [address] | | | | | [address] | [phone] | | | | | [phone] | | | +--------+ + + + [...] ordered, please prin t [facility] signed by Petrona Thapa MD at 017 10:49 AM PSTdocumented in this encounter Plan of Treatment +--------+---------+ + + + | Date | Type | Specialty | Care Team | Description | +--------+---------+ + + + | 11/14/ | Office | Internal Medicine | Alanis, | | | 2019 | Visit | | MD Petrona | | | | | | [address] [place] [address] [address] | | | | | | [place] [address] | | | | | | [phone] | | | | | | | | +--------+---------+ + + + | 12/20/ | Office | Audiology | Elisabet Munson MS | | 2019 | Visit | | [facility] [address] | | | | | | [address] [place] | | | | | | [place] [address] | | | | | | [phone] | | | | | | | | +--------+---------+ + + + | 12/20/ | Office | Otolaryngology | Ulysses Genao MD | | | 2020 | Visit | | [address] | | | | | | [address] [place], | | | | | | [place] [address] | | | | | | [phone] | | | | | | | [...]
--- OUTSIDE RECORDS SUMMARY | ~2019-10-17 | XMS | Encounter Summary ---
Demographics + + + | Address | [address] | | | [place] [address] | + + + | Home Phone [...] Providers + +------+ + | Care Metallurgy Teacher Name | Role | Phone | [...] + | 04/02/ | Refill | [facility] | Alanis, | Medication Refill | | 2018 | | MEDICINE [address] [place] [address] | MD Petrona | | | | | [facility] | [address] [place] [address] | | | | | [place] [address] | [place] [address] | | | | | [phone] | [phone] | | | | | | | [...] | | | | | [place] [address] | | | | | | [phone] | | | | | | | | +--------+---------+ + + + | 12/20/ | Office | Audiology | Elisabet Munson MS | | | 2019 | Visit | | [facility] [address] | | | | | | [place] [address] [place] | | | | | | [place] [address] | | | | | | [phone] | | | | | | | | +--------+---------+ + + + | 12/20/ | Office | Otolaryngology | Ulysses Genao MD | | | 2020 | Visit | | [address] [facility] | | | | | | [address] [place], | | | | | | [place] [address] | | | | | | [phone] | | | | | | | | +--------+---------+ + + + documented as of this encounter Visit Diagnoses Not on filedocumented in this encounter"
--- OUTSIDE RECORDS SUMMARY | ~2019-10-17 | XMS | Encounter Summary ---
Demographics + + + | Address | [address] | | | [place] [address] | + + + | Home Phone [...] Team Providers + +------+ + | Care Dermatological Surgeon Name | Role | Phone | [...] Status Post | | 2007 | | [place] [address] | [address] | Bariatric Surgery | | | | Ave Mailcode: CH4S | [address] | (Primary Dx) | | | | [facility] | [place], [place] | | | | | and Healing, | [address] | | | | | Building 1, 6th | [phone] | | | | | Floor [place], [place] | | | | | | [address] | | | | | | [phone] | | | +--------+ + + + [...] | | | | | ng/mLPerformed by [facility] | | | | | | [facility],[address] | | | | | | Andrew, [facility] [place] [facility] [place] [address] | | | | | | [phone] | | | | | | Sincere [...] [facility] | [address] | [place], [place] | | | UN[facility] INTFC | | [address] | | + + + + + [...] | + + + + + | [facility] | [address] | [place] [address] | | | LABORATORY | | | [...] RLB ([address] [facility]) | | | [facility] [place] [address] | | | [place] [address] | | + + + + + + + + | Performing | Address | City/State/Zipcode | Phone Number | | Organization | | | | + + + + + | [facility] | [address] | [place] [address] | | | LABORATORY | | | [...] RL ([address] [facility]) | | | [facility] [place] [address] [place] [facility] | | | [place] [address] | | + + + + + + + + | Performing | Address | City/State/Zipcode | Phone Number | | Organization | | | | + + + + + | [facility] | [address] [facility] | [place] [address] | | | LABORATORY | | | [...] Performed At | + + + | [address] Estimated GFR > 60 mL/min/1.73 sq m if non- | [facility] | | [address] Estimated GFR > 60 mL/min/1.73 sq m [...] DEPARTMENT OF | [address] | [place] [address] | | | PATHOLOGY | [address] | | | + + + + + | [place] DEPARTMENT | [address] | [place] [address] | | | PATHOLOGY | [address] [...] + + + + | [facility] | [address] | [place] [address] | | | PATHOLOGY | [address] | | | + + + + + | [facility] | [address] | [place] [address] | | | PATHOLOGY | [address] | | | + + + + + documented in this encounter Visit Diagnoses + + | Diagnosis | + + | Status post bariatric surgery - Primary Bariatric surgery status | + + documented in this encounter"
--- OUTSIDE RECORDS SUMMARY | ~2019-10-17 | XMS | Encounter Summary ---
Demographics + + + | Address | [address] | | | [place] [address] | + + + | Home Phone [...] Providers + +------+ + | Care High Speed Printer Operator Name | Role | Phone [...] [address] | | | | | [place], [place] | [place], [place] | | | | | [address] | [address] | | | | | [phone] | [phone] | | | | | | | [...]
--- OUTSIDE RECORDS SUMMARY | ~2019-10-17 | XMS | Encounter Summary ---
Demographics + + + | Address | [address] | | | [place] [address] | + + + | Home Phone [...] Padgett, | | | 2008 | | [place] [address] | [address] [facility] | | | | | [place] Mailcode: CH4S | [address] | | | | | [facility] | [place], [place] | | | | | and Healing, | [address] | | | | | Building , 6th | [phone] | | | | | Floor [place], [place] | | | | | | [address] | | | | | | [phone] | | | +--------+ + + + [...]
--- OUTSIDE RECORDS SUMMARY | ~2019-10-17 | XMS | Encounter Summary ---
Demographics + + + | Address | [address] | | | [place] [address] | + + + | Home Phone [...] | | | | | [place], | | | | | | [place] [address] | | | +--------+ + + + [...] | Patient: BELINDA MEEHAN J Med Rec: [id number] Sex F Bdate: 1960 | | Date/Time Data | | Entered Into [facility] | | Anesth PostOp | | Surgery Date [id number] 12/09/04 10:30 | | [id number] 11/23/03 10:57 | | Anesthesiologist SYEDA ANDREWS [...]
--- OUTSIDE RECORDS SUMMARY | ~2019-10-17 | XMS | Encounter Summary ---
Demographics + + + | Address | [address] | | | [place] [address] | + + + | Home Phone [...] + +------+ + | Care Earth Science Technician Name | Role | Phone [...] of this encounter Progress Notes Interface, Radio Sportscaster In - 01/13/2005 9:03 AM PDT [id number] [facility] Date: 01/02/2005 Clinic: Endocrinology [...] months. Beto Meeks M.D. PD / HS [id number] / [id number] / [id number] / [id number] cc: Chris Padgett M.D. documented i n this encounter Plan of Treatment Not on filedocumented as of this encounter Visit Diagnoses Not on filedocumented in this encounter"
--- OUTSIDE RECORDS SUMMARY | ~2019-10-17 | XMS | Encounter Summary ---
Demographics + + + | Address | [address] | | | [place] [address] | + + + | Home Phone [...] Providers + +------+ + | Care Barn Operator Name | Role | Phone | [...] + + | 08/18/ | Office | [facility] | Alanis, | Preop examination | | 2018 | Visit | MEDICINE [address] | MD Petrona | (Primary Dx); | | | | [facility] | [address] [facility] | Trigger finger of | | | | [place] [address] | [place] [address] | all digits of left | | | | [phone] | [phone] | hand | | | | | [...] r with Dr. Dr Jefe Cruz in [place], [place]. . She had surgery before and [...] Had a basal metabolic panel yesterday at [facility] in [place] which came back okay. REVIEW OF SYSTEMS [...] Fibromyalgia GERD (gastroesophageal reflux disease) Glaucoma Hyperparathyroidism (PRISMA [...] (See Comments) Confused and questionable for seizures Iihhbzovzx-Ctwf-Acmeulop Cephalexin Hives Duloxetine Migraines and nausea Ketorolac Hives Morphine Swelling Ropinirole Hcl Hives Tramadol Hcl Nausea Only Yeteaamokl-Eckl-Soliyhjz Hives and Rash Ciprofloxacin Hives and Rash [...] Note: Parts of this documentwere created using Simple Admit speech recognition software. As a r esult, [...] | | | | | [place] [address] | | | | | | [phone] | | | | | | | | +--------+---------+ + + + | 12/20/ | Office | Audiology | Elisabet Munsno MS | | | 2019 | Visit | | [facility] [address] | | | | | | [address] [place] | | | | | | [place] [address] | | | | | | [phone] | | | | | | | | +--------+---------+ + + + | 12/20/ | Office | Otolaryngology | Ulysses Genao MD | | | 2019 | Visit | | [address] | | | | | | [address] [place], | | | | | | [place] [address] | | | | | | [phone] | | | | | | | [...]
--- OUTSIDE RECORDS SUMMARY | ~2019-10-17 | XMS | Encounter Summary ---
Demographics + + + | Address | [address] | | | [place] [address] | + + + | Home Phone [...] Providers + +------+ + | Care Tile Edger Name | Role | Phone | + [...] + | 04/26/ | Refill | [facility] | Alanis, | Medication Refill | | 2017 | | MEDICINE [address] [place] [address] | MD Petrona | | | | | [facility] | [address] [place] [address] | | | | | [place] [address] | [place] [address] | | | | | [phone] | [phone] | | | | | | | [...] | | | | | [place] [address] | | | | | | [phone] | | | | | | | | +--------+---------+ + + + | 12/20/ | Office | Audiology | Elisabet Munson MS | | | 2019 | Visit | | [facility] [address] | | | | | | [place] [address] [place] | | | | | | [place] [address] | | | | | | [phone] | | | | | | | | +--------+---------+ + + + | 12/20/ | Office | Otolaryngology | Ulysses Genao MD | | | 2020 | Visit | | [address] [facility] | | | | | | [address] [place], | | | | | | [place] [address] | | | | | | [phone] | | | | | | | | +--------+---------+ + + + documented as of this encounter Visit Diagnoses Not on filedocumented in this encounter"
--- OUTSIDE RECORDS SUMMARY | ~2019-10-17 | XMS | Encounter Summary ---
Demographics + + + | Address | [address] | | | [place] [address] | + + + | Home Phone [...] Providers + +------+ + | Care Yeast Supervisor Name | Role | Phone | [...] + + | 03/05/ | Telephone | [facility] | Alanis, | Other | | 2018 | | MEDICINE [address] [place] [address] | MD Petrona | | | | | [facility] | [address] [place] [address] | | | | | [place] [address] | [place] [address] | | | | | [phone] | [phone] | | | | | | | [...] Petrona | | | | | | [facility] [address] | | | | | | [place] [address] | | | | | | [phone] | | | | | | | | +--------+---------+ + + + | 12/20/ | Office | Audiology | Elisabet Munson MS | | | 2019 | Visit | | [facility] [address] | | | | | | [place] [address] [address] | | | | | | [place] [address] | | | | | | [phone] | | | | | | | | +--------+---------+ + + + | 12/20/ | Office | Otolaryngology | Ulysses Genao MD | | | 2020 | Visit | | [address] [facility] | | | | | | [address] [place], | | | | | | [place] [address] | | | | | | [phone] | | | | | | | | +--------+---------+ + + + documented as of this encounter Visit Diagnoses + + | Diagnosis | + + | Non-intractable vomiting with nausea, unspecified vomiting type - Primary | + + documented in this encounter"
--- OUTSIDE RECORDS SUMMARY | ~2019-10-17 | XMS | Encounter Summary ---
Demographics + + + | Address | [address] | | | [place] [address] | + + + | Home Phone [...] Team Providers + +------+ + | Care Electromechanical Equipment Assembler Name | Role | Phone | [...] + + | 04/04/ | Telephone | [facility] | Alanis, | Toe Fracture | | 2019 | | MEDICINE [address] [place] [address] | MD Petrona | | | | | [facility] | [address] [place] [address] | | | | | [place] [address] | [place] [address] | | | | | [phone] | [phone] | | | | | | | [...] | | | | | [place] [address] | | | | | | [phone] | | | | | | | | +--------+---------+ + + + | 12/20/ | Office | Audiology | Elisabet Munson MS | | | 2019 | Visit | | [facility] [address] | | | | | | [address] [place] | | | | | | [place] [address] | | | | | | [phone] | | | | | | | | +--------+---------+ + + + | 12/20/ | Office | Otolaryngology | Ulysses Genao MD | | | 2020 | Visit | | [address] [facility] | | | | | | [address] [place], | | | | | | [place] [address] | | | | | | [phone] | | | | | | | | +--------+---------+ + + + documented as of this encounter Visit Diagnoses Not on filedocumented in this encounter"
--- OUTSIDE RECORDS SUMMARY | ~2019-10-17 | XMS | Encounter Summary ---
Demographics + + + | Address | [address] | | | [place] [address] | + + + | Home Phone [...] Providers + +------+ + | Care Employee Adviser Name | Role | Phone | [...] + | 03/05/ | Telephone | [facility] | Alanis, | Vomiting | | 2018 | | MEDICINE [address] [place] [address] | MD Petrona | | | | | [facility] | [address] [place] [address] | | | | | [place] [address] | [place] [address] | | | | | [phone] | [phone] | | | | | | | [...] | | | | | [place] [address] | | | | | | [phone] | | | | | | | | +--------+---------+ + + + | 12/20/ | Office | Audiology | Elisabet Munson MS | | | 2019 | Visit | | [facility] [address] | | | | | | [address] [place] [address] [place] | | | | | | [place] [address] | | | | | | [phone] | | | | | | | | +--------+---------+ + + + | 12/20/ | Office | Otolaryngology | Ulysses Genao MD | | | 2020 | Visit | | [address] [facility] | | | | | | [address] [place], | | | | | | [place] [address] | | | | | | [phone] | | | | | | | | +--------+---------+ + + + documented as of this encounter Visit Diagnoses Not on filedocumented in this encounter"
--- OUTSIDE RECORDS SUMMARY | ~2019-10-17 | XMS | Encounter Summary ---
Demographics + + + | Address | [address] | | | [place] [address] | + + + | Home Phone [...] Providers + +------+ + | Care Therapeutic Assistant Name | Role | Phone | [...] [address] | | | | | [facility] | [place], [place] | | | | | [address] | [address] | | | | | [address] | [phone] | | | | | [facility] | | | | | | Physician's | | | | | | Pavilion [place], | | | | | | [place] [address] | | | | | | [phone] | | | +--------+ + + + [...]
--- OUTSIDE RECORDS SUMMARY | ~2019-10-17 | XMS | Encounter Summary ---
Demographics + + + | Address | [address] | | | [place] [address] | + + + | Home Phone [...] Providers + +------+ + | Care Fire Inspector Name | Role | Phone | [...] + | 03/12/ | Refill | [facility] | Alanis, | Medication Refill | | 2018 | | MEDICINE [address] [place] [address] | MD Petrona | | | | | [facility] | [address] [place] [address] | | | | | [place] [address] | [place] [address] | | | | | [phone] | [phone] | | | | | | | [...] | | | | | [place] [address] | | | | | | [phone] | | | | | | | | +--------+---------+ + + + | 12/20/ | Office | Audiology | Elisabet Munson MS | | | 2019 | Visit | | [facility] [address] | | | | | | [place] [address] [place] | | | | | | [place] [address] | | | | | | [phone] | | | | | | | | +--------+---------+ + + + | 12/20/ | Office | Otolaryngology | Ulysses Genao MD | | | 2020 | Visit | | [address] [facility] | | | | | | [address] [place], | | | | | | [place] [address] | | | | | | [phone] | | | | | | | | +--------+---------+ + + + documented as of this encounter Visit Diagnoses Not on filedocumented in this encounter"
--- OUTSIDE RECORDS SUMMARY | ~2019-10-17 | XMS | Encounter Summary ---
Demographics + + + | Address | [address] | | | [place] [address] | + + + | Home Phone [...] Providers + +------+ + | Care Shank Rander Name | Role | Phone | [...] | | | | Clinical Nutrition | [place], [place] | | | | | [address] | [address] | | | | | Loop Mailcode: OPC5 | [phone] | | | | | Outpatient Clinic | | | | | | [facility], | | | | | | [place] [address] | | | | | | [phone] | | | +--------+ + + + [...]
--- OUTSIDE RECORDS SUMMARY | ~2019-10-17 | XMS | Encounter Summary ---
Demographics + + + | Address | [address] | | | [place] [address] | + + + | Home Phone [...] Providers + +------+ + | Care Document Review Specialist Name | Role | Phone | + +------+ + | Pterona Thapa | PCP | | | MD | | | + +------+ + Encounter Details +--------+ + + + + | Date | Type | Department | Care Team | Description | +--------+ + + + + | 02/23/ | Hospital | [facility] | [place] | Right shoulder pain, | | 2018 | Encounter | [facility] | MD [address] | unspecified | | | | [address] [place] | [address] [place] | chronicity | | | | [place] | [place] [address] | | | | | [address] | [phone] | | | | | [phone] | | | +--------+ + + + [...] | | | | | [place] [address] | | | | | | [phone] | | | | | | | | +--------+---------+ + + + | 12/20/ | Office | Audiology | Elisabet Munson MS | | | 2019 | Visit | | [facility] [address] | | | | | | [address] [place] | | | | | | [place] [address] | | | | | | [phone] | | | | | | | | +--------+---------+ + + + | 12/20/ | Office | Otolaryngology | Ulysses Genao MD | | | 2019 | Visit | | [address] | | | | | | [address] [place], | | | | | | [place] [address] | | | | | | [phone] | | | | | | | [...]
--- OUTSIDE RECORDS SUMMARY | ~2019-10-17 | XMS | Encounter Summary ---
Demographics + + + | Address | [address] | | | [place] [address] | + + + | Home Phone [...] Team Providers + +------+ + | Care Galvanizer Name | Role | Phone | + [...] | Pain | Diagnoses | Miracle, | [place], | | | | Management | LBP (low | NIHARIKA Jean | Lukasz Rhodes, PhD | | | | | back pain) | [address] | [address] | | | | | DJD | [address] | Ave | | | | | (degenerativ | [place], [place] | [place] | | | | | e joint | [address] | [address] | | | | | disease) of | | Phone: | | | | | knee Knee | | [phone] | | | | | pain Major | | Fax: | | | | | depressive | | [phone] | | | | | disorder, | [...] 03/03/ | Office | [facility] | Lukasz Charles, | Major Depressive | | 2007 | Visit | [address] | PhD [address] | Disorder, Recurrent | | | | Mailcode: [facility] | [place], [place] | Episode, Moderate | | | | [facility] | [address] | ([facility]); LBP (Low Back | | | | and Healing, | [phone] | Pain); Bilateral | | | | | | Knee Pain; | | | | Floor [place], [place] | | Fibromyalgia | | | | [address] | | syndrome 729.1; | | | | [phone] | | Adjustment Disorder | | | [...] seems to be doing good self-care. Diagnosis: [place] I: 1. (296.32) Major depressive disorder, recurrent, moderate. 2. (309.24) Adjustment disorder with anxiety. 3. 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 [place] II: Deferred [place] III: abdominal pain, migraine headache, low back pain. [place] IV: low finances [place] V: GAF 55-60 Plan: return with next medical follow-up appointment. Check mood, pain, relaxation, activ ity, distraction, eating. Continue cognitive/behavioral therapy. Total time spent with patient was approximately 45 minutes. LUKASZ CHARLES PHD [facility] [address] [facility], 4th [place] [address] documented in this encount er Plan of Treatment + + +--------+ + + | Name | Type | Priori | Associated Diagnoses | Order Schedule | | | | ty | | | + + +--------+ + + | [facility]OTHER[facility], | Procedures | Routin | Major Depressive | Ordered: 03/03/2008 | | OFFICE (40-03) | | e | Disorder, Recurrent | [...]
--- OUTSIDE RECORDS SUMMARY | ~2019-10-17 | XMS | Encounter Summary ---
Demographics + + + | Address | [address] | | | [place] [address] | + + + | Home Phone [...] Providers + +------+ + | Care Store Promoter Name | Role | Phone | [...] + + | 04/19/ | Telephone | [facility] | Alanis, | Lab Results | | 2019 | | MEDICINE [address] [place] [address] | MD Petrona | | | | | [facility] | [address] [place] [address] | | | | | [place] [address] | [place] [address] | | | | | [phone] | [phone] | | | | | | | [...] | | | | | [place] [address] | | | | | | [phone] | | | | | | | | +--------+---------+ + + + | 12/20/ | Office | Audiology | Elisabet Munson MS | | | 2020 | Visit | | [facility] [address] | | | | | | [place] [address] [place] | | | | | | [place] [address] | | | | | | [phone] | | | | | | | | +--------+---------+ + + + | 12/20/ | Office | Otolaryngology | Ulysses Genao MD | | | 2020 | Visit | | [address] [place] | | | | | | [address] [place], | | | | | | [place] [address] | | | | | | [phone] | | | | | | | | +--------+---------+ + + + documented as of this encounter Visit Diagnoses Not on filedocumented in this encounter"
--- OUTSIDE RECORDS SUMMARY | ~2019-10-17 | XMS | Encounter Summary ---
Demographics + + + | Address | [address] | | | [place] [address] | + + + | Home Phone [...] Providers + +------+ + | Care Principal Librarian Name | Role | Phone | + +------+ + | Maria Esther Cintron MD | PCP | | + +------+ + Encounter Details +--------+ + + + + | Date | Type | Department | Care Team | Description | +--------+ + + + + | 02/16/ | Telephone | [facility] | Chris Padgett, | | | 2007 | | [place] [address] | [address] [facility] | | | | | [place] Mailcode: [facility]4S | [address] | | | | | [facility] | [place], [place] | | | | | and Healing, | [address] | | | | | Building , 6th | [phone] | | | | | Floor [place], [place] | | | | | | [address] | | | | | | [phone] | | | +--------+ + + + [...]
--- OUTSIDE RECORDS SUMMARY | ~2019-10-17 | XMS | Encounter Summary ---
Demographics + + + | Address | [address] | | | [place] [address] | + + + | Home Phone [...] Providers + +------+ + | Care Car Coupler Name | Role | Phone | + [...] | | | | [address] | [address] Phone: | | | | | | [place], | [phone] | | | | | | [place] | Fax: | | | | | | [address] | [phone] | | | | | | Phone: | | | | | | | [phone] | | | | | | | Fax: | | | | | | | [phone] | | +--------+--------+ + + + + Encounter Details +--------+---------+ + + + | Date | Type | Department | Care Team | Description | +--------+---------+ + + + | 11/28/ | Office | [facility] | Carlos Hsieh | NO SHOW (Primary Dx) | | 2014 | Visit | PHYSIATRY [address] | T, [address] | | | | [address] | [address] [place], [place] | | | | | [place] | [address] | | | | | [address] | | | | | | [phone] | Joe, | | | | | | MARY Montero [address] | | | | | | [address] | | | | | | [place] [address] | | | | | | [phone] | | | | | | | [...] | | | [address] [facility] | | | | | | [place] [address] | | | | | | [phone] | | | | | | | | +--------+---------+ + + + | 12/20/ | Office | Audiology | Elisabet Munson MS | | 2019 | Visit | | [facility] [address] | | | | | | [place] [address] [address] | | | | | | [place] [address] | | | | | | [phone] | | | | | | | | +--------+---------+ + + + | 12/20/ | Office | Otolaryngology | Ulysses Genao MD | | | 2020 | Visit | | [address] | | | | | | [address] [place], | | | | | | [place] [address] | | | | | | [phone] | | | | | | | | +--------+---------+ + + + documented as of this encounter Visit Diagnoses + + | Diagnosis | + + | No Show - Primary Code used for vists where the patient is not seen | + + documented in this encounter"
--- OUTSIDE RECORDS SUMMARY | ~2019-10-17 | XMS | Encounter Summary ---
Demographics + + + | Address | [address] | | | [place] [address] | + + + | Home Phone [...] Team Providers + +------+ + | Care Ordnance Engineering Technician Name | Role | Phone [...] [address] | | | | | [place], [place] | [place], [place] | | | | | [address] | [address] | | | | | [phone] | [phone] | | | | | | | [...]
--- OUTSIDE RECORDS SUMMARY | ~2019-10-17 | XMS | Encounter Summary ---
Demographics + + + | Address | [address] | | | [place] [address] | + + + | Home Phone [...] Providers + +------+ + | Care Business English Instructor Name | Role | Phone | [...] | Visit | [facility] [address] | CUSTOM DRESSMAKER | syndrome 729.1 | | | | [address] | | (Primary Dx); | | | | Physician's | | Fibromyalgia | | | | Pavilion, 4th Floor | | | | | | [place], [place] | | | | | | [address] | | | | | | [phone] | | | +--------+---------+ + + + [...]
--- OUTSIDE RECORDS SUMMARY | ~2019-10-17 | XMS | Encounter Summary ---
Demographics + + + | Address | [address] | | | [place] [address] | + + + | Home Phone [...] Team Providers + +------+ + | Care Lease Out Worker Name | Role | Phone | [...] [address] | | | | | [place], [place] | [place], [place] | | | | | [address] | [address] | | | | | [phone] | [phone] | | | | | | | [...] | + +---------+ + + | [facility] DEPARTMENT OF | | | | | RADIOLOGY | | | | + +---------+ + + documented in this encounter Visit Diagnoses Not on filedocumented in this encounter"
--- OUTSIDE RECORDS SUMMARY | ~2019-10-17 | XMS | Encounter Summary ---
Demographics + + + | Address | [address] | | | [place] [address] | + + + | Home Phone [...] + | 05/25/ | Refill | [facility] | Alanis, | Medication Refill | | 2016 | | MEDICINE [address] [place] [address] | MD Petrona | | | | | [facility] | [address] [place] [address] | | | | | [place] [address] | [place] [address] | | | | | [phone] | [phone] | | | | | | | [...] | | | | | [place] [address] | | | | | | [phone] | | | | | | | | +--------+---------+ + + + | 12/20/ | Office | Audiology | Elisabet Munson MS | | | 2019 | Visit | | [facility] [address] | | | | | | [place] [address] [place] | | | | | | [place] [address] | | | | | | [phone] | | | | | | | | +--------+---------+ + + + | 12/20/ | Office | Otolaryngology | Ulysses Genao MD | | | 2020 | Visit | | [address] [facility] | | | | | | [address] [place], | | | | | | [place] [address] | | | | | | [phone] | | | | | | | | +--------+---------+ + + + documented as of this encounter Visit Diagnoses Not on filedocumented in this encounter"
--- OUTSIDE RECORDS SUMMARY | ~2019-10-17 | XMS | Encounter Summary ---
Demographics + + + | Address | [address] | | | [place] [address] [...] Team Providers + +------+ + | Care Surveyor Chain Helper Name | Role | Phone | [...] | Osteopenia | | 2006 | | [place] [address] | [address] [facility] | | | | | [place] Mailcode: [facility] | [address] | | | | | [facility] | [place], [place] | | | | | and Healing, | [address] | | | | | [facility] | [phone] | | | | | Floor [place], [place] | | | | | | [address] | | | | | | [phone] | | | +--------+ + + + [...]
--- OUTSIDE RECORDS SUMMARY | ~2019-10-17 | XMS | Encounter Summary ---
Demographics + + + | Address | [address] | | | [place] [address] | + + + | Home Phone [...] Team Providers + +------+ + | Care Waist Pleater Name | Role | Phone | + [...] | | 2006 | Visit | [facility] | [address] | Pain; Cervical Pain; | | | | [place] [address] [place], | Pain in Joint, Site | | | | [address] Mailcode: | [place] [address] | Unspecified; | | | | [facility] [place] [facility] | | Depression | | | | Health and Healing, | | | | | | Building | | | | | | Floor [place], [place] | | | | | | [address] | | | | | | [phone] | | | +--------+---------+ + + + [...] EVALUATION NOTE Date: 06/23/2006 Name: Belinda Meehan [id number] y.o. female Start of Care: 06/23/2005 [...] the last few gregory hs. Handedness: right [place]: [place], [place] Chief Complaint: Headaches and cervical pain, bilateral [...] HX SALPINGO-OOPHORECTOMY COLONOSCOPY Comment: 03/2006 HX TONSILLECTOMY IN D&C AFTER DELIVERY IN INJECT TRIGGER POINT, 1 OR 2 Medications: [...]
--- OUTSIDE RECORDS SUMMARY | ~2019-10-17 | XMS | Encounter Summary ---
Demographics + + + | Address | [address] | | | [place] [address] | + + + | Home Phone [...] Providers + +------+ + | Care Coin Box Collector Name | Role | Phone | [...] Rd | | | | | | [place], [place] | | | | | | [address] | | | +--------+ + + + [...] as of this encounter Progress Notes Interface, Crew Lead In - 03/12/2007 2:28 AM PDT [id number] GEOVANNI Barnes [id number] Clinic Date: 02/23/2007 Clinic: Endocrinology Subjective: Belinda [...] performed next Thursday, March 01, 2007, in [place]. The right knee will be replaced in [...] patch 25 mcg for 72 hours. 2. [place]/acetaminophen 10 mg/325 mg, 1 every 6 hours [...] months. Beto Meeks M.D. PD / HS [id number] / [id number] / [id number] / [id number] cc: Pedrito Gutierrez M.D. [address] [place] [address] Chris Padgett M.D. Department of Surgery, [facility] Electronically signed by Beto Meeks 03-11-2007 04:41:13 PM nterface, Crew Lead In - 03/12/2007 2:28 AM PDT [id number] GEOVANNI SKELTON J [id number] Clinic Date: 02/23/2007 Clinic: Endocrinology Belinda Meehan [...] her primary care provider, Dr. Gutierrez in [place]. She had a followup eye exam today, [...] replacement next Thursday (in 6 days) in [place], [place]. The right knee replacement tentatively will [...] as needed. Beto Meeks M.D. / SHARIF [id number] / [id number] / [id number] / [id number] cc: Pedrito Gutierrez M.D. [address] [place] [address] Joanna Arshad M.D. Electronically signed by Beto Meeks 03-11-2007 04:41:08 PM documented in this encounter Plan of Treatment Not on filedocumented as of this encounter Visit Diagnoses Not on filedocumented in this encounter"
--- OUTSIDE RECORDS SUMMARY | ~2019-10-17 | XMS | Encounter Summary ---
Demographics + + + | Address | [address] | | | [place] [address] | + + + | Home Phone [...] Team Providers + +------+ + | Care Roto Gravure Press Operator Name | Role | Phone [...] of this encounter Progress Notes Interface, Manager Supply Chain Planning In - 11/19/2005 3:09 AM PDT [place] [facility] [address] [place] [address] or May 09, 2003 Pedrito Gutierrez M.D. [address] [place] [address] RE: BELINDA MEEHAN MR #: [id number] Dear Dr. Gutierrez: I had the pleasure [...] this testing done through your clinic in [place]. I will plan to see her again [...] regarding her condition. Sincerely, Issac Meeks M.D. engine turner, Division of Endocrinology, Diabetes, and Clinical Central Supply Manager, Metabolic Disorders Clinic PBD / HS [id number] / [id number] / [id number] / Tdocumented in this encounter Plan of Treatment Not on filedocumented as of this encounter Visit Diagnoses Not on filedocumented in this encounter"
--- OUTSIDE RECORDS SUMMARY | ~2019-10-17 | XMS | Encounter Summary ---
Demographics + + + | Address | [address] | | | [place] [address] | + + + | Home Phone [...] + +------+ + | Care Baby Formula Mixer Name | Role | Phone | [...] Lab findings, | | 2006 | | [place] [address] | [address] | teaching, guidance, | | | | Ave Mailcode: [facility] | [address] | and counseling | | | | [facility] | [place], [place] | | | | | and Healing, | [address] | | | | | [facility] | [phone] | | | | | [place], [place] | | | | | | [address] | | | | | | [phone] | | | +--------+ + + + [...]
--- OUTSIDE RECORDS SUMMARY | ~2019-10-17 | XMS | Encounter Summary ---
Demographics + + + | Address | [address] | | | [place] [address] | + + + | Home Phone [...] Team Providers + +------+ + | Care Lift Team Technician Name | Role | Phone | [...] + | 11/20/ | Refill | [facility] | Alanis, | Medication Refill | | 2017 | | MEDICINE [address] [place] [address] | MD Petrona | | | | | [facility] | [address] [place] [address] | | | | | [place] [address] | [place] [address] | | | | | [phone] | [phone] | | | | | | | [...] | | | | | [place] [address] | | | | | | [phone] | | | | | | | | +--------+---------+ + + + | 12/20/ | Office | Audiology | Elisabet Munson MS | | | 2019 | Visit | | [facility] [address] | | | | | | [place] [address] [place] | | | | | | [place] [address] | | | | | | [phone] | | | | | | | | +--------+---------+ + + + | 12/20/ | Office | Otolaryngology | Ulysses Genao MD | | | 2020 | Visit | | [address] [facility] | | | | | | [address] [place], | | | | | | [place] [address] | | | | | | [phone] | | | | | | | | +--------+---------+ + + + documented as of this encounter Visit Diagnoses Not on filedocumented in this encounter"
--- OUTSIDE RECORDS SUMMARY | ~2019-10-17 | XMS | Encounter Summary ---
Demographics + + + | Address | [address] | | | [place] [address] | + + + | Home Phone [...] Providers + +------+ + | Care Mailroom Clerk Name | Role | Phone | [...] | | | | [id number] Physician's | [place], [place] | | | | | [address] | [address] | | | | | [place], [place] | [phone] | | | | | [address] | | | | | | [phone] | | | +--------+ + + + [...] + +---------+ + + | [facility] DEPARTMENT OF | | | [...]
--- OUTSIDE RECORDS SUMMARY | ~2019-10-17 | XMS | Encounter Summary ---
Demographics + + + | Address | [address] | | | [place] [address] | + + + | Home Phone [...] Team Providers + +------+ + | Care Dianetic Counselor Name | Role | Phone | [...] as of this encounter Progress Notes Interface, Physiology Teacher In - 12/09/2005 2:08 AM PDT [id number] GEOVANNI Barnes [id number] Clinic Date: 11/26/2005 Clinic: General Surgery Clinic [...] with extensive workup. Prescription picked up at [facility] on November 25, 2005, for 50 oxycodone 5 mg. Melisa Thorne / SHARIF [id number] / [id number] / [id number] / [id number] Electronically signed by Kenisha Melton 12-05-2005 08:28:34 PM documented i n this encounter Plan of Treatment Not on filedocumented as of this encounter Visit Diagnoses Not on filedocumented in this encounter"
--- OUTSIDE RECORDS SUMMARY | ~2019-10-17 | XMS | Encounter Summary ---
Demographics + + + | Address | [address] | | | [place] [address] | + + + | Home Phone [...] Providers + +------+ + | Care School Crossing Guard Supervisor Name | Role | Phone | [...] + + | 07/01/ | Telephone | [facility] | Alanis, | Foot Pain | | 2018 | | MEDICINE [address] [place] [address] | MD Petrona | | | | | [facility] | [address] [place] [address] | | | | | [place] [address] | [place] [address] | | | | | [phone] | [phone] | | | | | | | [...] | | | | | [place] [address] | | | | | | [phone] | | | | | | | | +--------+---------+ + + + | 12/20/ | Office | Audiology | Elisabet Munson MS | | | 2019 | Visit | | [facility] [address] | | | | | | [place] [address] [place] | | | | | | [place] [address] | | | | | | [phone] | | | | | | | | +--------+---------+ + + + | 12/20/ | Office | Otolaryngology | Ulysses Genao MD | | | 2020 | Visit | | [address] [facility] | | | | | | [address] [place], | | | | | | [place] [address] | | | | | | [phone] | | | | | | | | +--------+---------+ + + + documented as of this encounter Visit Diagnoses Not on filedocumented in this encounter"
--- OUTSIDE RECORDS SUMMARY | ~2019-10-17 | XMS | Encounter Summary ---
Demographics + + + | Address | [address] | | | [place] [address] | + + + | Home Phone [...] Providers + +------+ + | Care Field Observer Name | Role | Phone | [...] + | 10/09/ | Refill | [facility] | Alanis, | Medication Refill | | 2017 | | MEDICINE [address] [place] [address] | MD Petrona | | | | | [facility] | [address] [place] [address] | | | | | [place] [address] | [place] [address] | | | | | [phone] | [phone] | | | | | | | [...] | | | | | [place] [address] | | | | | | [phone] | | | | | | | | +--------+---------+ + + + | 12/20/ | Office | Audiology | Elisabet Munson MS | | | 2019 | Visit | | [facility] [address] | | | | | | [place] [address] [place] | | | | | | [place] [address] | | | | | | [phone] | | | | | | | | +--------+---------+ + + + | 12/20/ | Office | Otolaryngology | Ulysses Genao MD | | | 2020 | Visit | | [address] [facility] | | | | | | [address] [place], | | | | | | [place] [address] | | | | | | [phone] | | | | | | | | +--------+---------+ + + + documented as of this encounter Visit Diagnoses Not on filedocumented in this encounter"
--- OUTSIDE RECORDS SUMMARY | ~2019-10-17 | XMS | Encounter Summary ---
Demographics + + + | Address | [address] | | | [place] [address] | + + + | Home Phone [...] Providers + +------+ + | Care Applications Development Analyst Name | Role | Phone | [...] | Transcriptions | + + | Interface, Fermenting Cellars Supervisor In - 08/06/2005 2:06 AM PST | | [id number] | | [id number] GEOVANNI Barnes | | | | Date: 07/25/2005 | | | | Attending Surgeon: Chris Padgett M.D. | | | | Guide(s): Bandar Langley M.D. | | | | [...] | | DT / HS | | [id number] / [id number] / [id number] / [id number] | | | | | | | | | | | | Electronically signed by Chris Padgett 08-05-2005 12:36:41 PM | + + documented in this encounter Visit Diagnoses Not on filedocumented in this encounter"
--- OUTSIDE RECORDS SUMMARY | ~2019-10-17 | XMS | Encounter Summary ---
Demographics + + + | Address | [address] | | | [place] [address] | + + + | Home Phone [...] Providers + +------+ + | Care Cellophane Casting Machine Repairer Name | Role | Phone [...] | | unspecified | [place], [place] | [address] | | | | | laterality | [address] | Phone: | | | | | | Phone: | [phone] | | | | | | [phone] | Fax: | | | | | | Fax: | [phone] | | | | | | [phone] | | +--------+ + + + + [...] [place], | unspecified | | | | [place], [place] | [place] [address] | laterality (Primary | | | | [address] | [phone] | Dx) | | | | [phone] | | | +--------+ + + + [...] | | | | | [place] [address] | | | | | | [phone] | | | | | | | | +--------+---------+ + + + | 12/20/ | Office | Audiology | Elisabet Munson MS | | | 2019 | Visit | | [facility] [address] | | | | | | [address] [place] | | | | | | [place] [address] | | | | | | [phone] | | | | | | | | +--------+---------+ + + + | 12/20/ | Office | Otolaryngology | Ulysses Genao MD | | | 2019 | Visit | | [address] | | | | | | [address] [place], | | | | | | [place] [address] | | | | | | [phone] | | | | | | | [...]
--- OUTSIDE RECORDS SUMMARY | ~2019-10-17 | XMS | Encounter Summary ---
Demographics + + + | Address | [address] | | | [place] [address] | + + + | Home Phone [...] Team Providers + +------+ + | Care Trust Clerk Name | Role | Phone | [...] | | sciatica | [address] | [address] | | | | | Lumbar | [place], | Phone: | | | | | stenosis | [place] | [phone] | | | | | Opiate | [address] | Fax: | | | | | dependence, | Phone: | [phone] | | | | | continuous | [phone] | | | | | | (HCC) | Fax: | | | | | | | [phone] | | +--------+ + + + + + Reason for Visit + + + | Reason | Comments | + + + | Medication Refill | | + + + Encounter Details +--------+---------+ + + + | Date | Type | Department | Care Team | Description | +--------+---------+ + + + | 02/23/ | Office | [facility] | Emmy-Tacliffordti, | B12 deficiency | | 2017 | Visit | MEDICINE [address] [place] [address] | MD Petrona | (Primary Dx); | | | | [facility] | [address] [place] [address] | Chronic bilateral | | | | [place] [address] | [place] [address] | low back pain | | | | [phone] | [phone] | without sciatica; | | | | [...] AM PDTWe are referr ing you to [facility] in [place]. B12 shot today. documented in this encounter [...] interested in seein a pain clinic in [facility] as she is an [place] resident. No [...] pain COPD (chronic obstructive pulmonary disease) ([facility]) Depression Diarrhea Dumping syndrome Fibromyalgia Hyperparathyroidism ([facility]) Hypothyroidism IBS (irritable bowel syndrome) Lumbar radiculopathy primarily right 01/04/2015 Meniere syndrome Migraine Migraines Obesity OLIVER (obstructive sleep apnea) Osteoarthritis, generalized Osteopenia Osteoporosis Peripheral neuropathy ([facility]) Rheumatoid arthritis ([facility]) Right arm pain 01/04/2015 RLS (restless legs syndrome) S/P lumbar fusion 01/04/2015 Scoliosis Stroke ([facility]) Syncope Tremor FAMILY HISTORY Family History Problem [...] Reactions Levofloxacin Hives and Itching Amitriptyline Hcl Kbrusskkcd-Mewf-Wgouuniu Cephalexin Ciprofloxacin Clarithromycin Clindamycin Hcl Codeine Sulfate [...] Petrona | | | | | | [address] [place] [address] [address] | | | | | | [place] [address] | | | | | | [phone] | | | | | | | | +--------+---------+ + + + | 12/20/ | Office | Audiology | Elisabet Munson MS | | 2019 | Visit | | [facility] | | | | | | [place] [address] [place] | | | | | | [place] [address] | | | | | | [phone] | | | | | | | | +--------+---------+ + + + | 12/20/ | Office | Otolaryngology | Ulysses Genao MD | | | 2020 | Visit | | [address] | | | | | | [address] [place], | | | | | | [place] [address] | | | | | | [phone] | | | | | | | [...]
--- OUTSIDE RECORDS SUMMARY | ~2019-10-17 | XMS | Encounter Summary ---
Demographics + + + | Address | [address] | | | [place] [address] | + + + | Home Phone [...] Providers + +------+ + | Care Chemistry Manager Name | Role | Phone | [...] | 2019 | Visit | MEDICINE [address] | MD Petrona | aura and without | | | | [facility] | [address] [place] [address] | status migrainosus, | | | | [place] [address] | [place] [address] | not intractable | | | | [phone] | [phone] | (Primary Dx); | | | | [...] working with an orthopedist in [facility], and she anticipates that she will hav [...] mcg 1,000 mcg Intramuscular Q30 Days Morelia Thaap MD 1,000 mcg at 03/21/19 0951 ALLERGIES Allergies Allergen Reactions Ensure Diarrhea Food Diarrhea Lactose Vjymknyrzj-Yqv-Ionp-Codeine Other (See Comments) Balance problems Codeine Sulfate Nausea Only Food Allergy Formula Diarrhea Ensure Levofloxacin Hives, Itching and Rash Butalbital Ropinirole Amitriptyline Hcl Other (See Comments) Confused and questionable for seizures Qqmnkotcrp-Ycml-Uyuktrhe Rash duplicate Letmkxmubs-Vyjx-Rsxbodxu Hives and Rash Cephalexin Hives Ciprofloxacin Hives [...] 1. Parts of this documentwere created using [employer] speech recognition software. As a resu lt, [...] | | | | | | [address] [place] [address] | | | | | | [place] [address] | | | | | | [phone] | | | | | | | | +--------+---------+ + + + | 12/20/ | Office | Audiology | Elisabet Munson MS | | | 2019 | Visit | | [facility] [address] | | | | | | [address] [place] | | | | | | [place] [address] | | | | | | [phone] | | | | | | | | +--------+---------+ + + + | 12/20/ | Office | Otolaryngology | Ulysses Genao MD | | | 2019 | Visit | | [address] | | | | | | [address] [place], | | | | | | [place] [address] | | | | | | [phone] | | | | | | | [...] | | | First dose on [facility] 10/15/17 at 1215 | | | [...]
--- OUTSIDE RECORDS SUMMARY | ~2019-10-17 | XMS | Encounter Summary ---
Demographics + + + | Address | [address] | | | [place] [address] | + + + | Home Phone [...] Team Providers + +------+ + | Care Ribber Name | Role | Phone | + [...] pneumonia, | | | | Avjennifer Mailcode: [facility] | [address] | wants to get back on | | | | [facility] | [place], [place] | vitamins) | | | | and Healing, | [address] | | | | | [place] [address] [facility] | [phone] | | | | | Floor [place], [place] | | | | | | [address] | | | | | | [phone] | | | +--------+ + + + [...]
--- OUTSIDE RECORDS SUMMARY | ~2019-10-17 | XMS | Encounter Summary ---
Demographics + + + | Address | [address] | | | [place] [address] | + + + | Home Phone [...] Team Providers + +------+ + | Care Yarder Name | Role | Phone | + [...] [address] | | | | | [facility] | [place], [place] | | | | | and Healing, | [address] | | | | | [facility], [facility] | [phone] | | | | | Floor [place], [place] | | | | | | [address] | | | | | | [phone] | | | +--------+ + + + [...]
--- OUTSIDE RECORDS SUMMARY | ~2019-10-17 | XMS | Encounter Summary ---
Demographics + + + | Address | [address] | | | [place] [address] | + + + | Home Phone [...] Providers + +------+ + | Care Family Consumer Scientist Name | Role | Phone | [...] + | 01/12/ | Refill | [facility] | Alanis, | Medication Refill | | 2017 | | MEDICINE [address] [place] [address] | MD Petrona | | | | | [facility] | [address] [place] [address] | | | | | [place] [address] | [place] [address] | | | | | [phone] | [phone] | | | | | | | [...] | | | | | [place] [address] | | | | | | [phone] | | | | | | | | +--------+---------+ + + + | 12/20/ | Office | Audiology | Elisabet Munson MS | | | 2019 | Visit | | [facility] [address] | | | | | | [place] [address] [place] | | | | | | [place] [address] | | | | | | [phone] | | | | | | | | +--------+---------+ + + + | 12/20/ | Office | Otolaryngology | Ulysses Genao MD | | | 2020 | Visit | | [address] [facility] | | | | | | [address] [place], | | | | | | [place] [address] | | | | | | [phone] | | | | | | | | +--------+---------+ + + + documented as of this encounter Visit Diagnoses Not on filedocumented in this encounter"
--- OUTSIDE RECORDS SUMMARY | ~2019-10-17 | XMS | Encounter Summary ---
Demographics + + + | Address | [address] | | | [place] [address] | + + + | Home Phone [...] Providers + +------+ + | Care Services Clerk Name | Role | Phone [...] + | 07/16/ | Telephone | [facility] | Alanis, | Results, Imaging | | 2017 | | MEDICINE [address] | MD Petrona | | | | | [facility] | [address] [place] [address] | | | | | [place] [address] | [place] [address] | | | | | [phone] | [phone] | | | | | | | [...] [place] | | | | | | [place] [address] | | | | | | [phone] | | | | | | | | +--------+---------+ + + + | 12/20/ | Office | Audiology | Elisabet Munson MS | | | 2019 | Visit | | [facility] [address] | | | | | | [place] [address] [place] | | | | | | [place] [address] | | | | | | [phone] | | | | | | | | +--------+---------+ + + + | 12/20/ | Office | Otolaryngology | Ulysses Genao MD | | | 2020 | Visit | | [address] [facility] | | | | | | [address] [place], | | | | | | [place] [address] | | | | | | [phone] | | | | | | | | +--------+---------+ + + + documented as of this encounter Visit Diagnoses Not on filedocumented in this encounter"
--- OUTSIDE RECORDS SUMMARY | ~2019-10-17 | XMS | Encounter Summary ---
Demographics + + + | Address | [address] | | | [place] [address] | + + + | Home Phone [...] Team Providers + +------+ + | Care Primary Counselor Name | Role | Phone | [...] Lab findings, | | 2007 | | [place] [address] | [address] | teaching, guidance, | | | | Ave Mailcode: [address] | [address] | and counseling | | | | [facility] | [place], [place] | | | | | and Healing, | [address] | | | | | [facility] | [phone] | | | | | [place], [place] | | | | | | [address] | | | | | | [phone] | | | +--------+ + + + [...]
--- OUTSIDE RECORDS SUMMARY | ~2019-10-17 | XMS | Encounter Summary ---
Demographics + + + | Address | [address] | | | [place] [address] | + + + | Home Phone [...] Providers + +------+ + | Care Reading Instructor Name | Role | Phone | [...] | | | | L223A Physician's | [place], [place] | | | | | [address] | [address] | | | | | [place], [place] | [phone] | | | | | [address] | | | | | | [phone] | | | +--------+ + + + [...]
--- OUTSIDE RECORDS SUMMARY | ~2019-10-17 | XMS | Encounter Summary ---
Demographics + + + | Address | [address] | | | [place] [address] | + + + | Home Phone [...] Providers + +------+ + | Care Crowning Inspector Name | Role | Phone | [...] + | 12/14/ | Refill | [facility] | Alanis, | Medication Refill | | 2018 | | MEDICINE [address] [place] [address] | MD Petrona | | | | | [facility] | [address] [place] [address] | | | | | [place] [address] | [place] [address] | | | | | [phone] | [phone] | | | | | | | [...] | | | | | [place] [address] | | | | | | [phone] | | | | | | | | +--------+---------+ + + + | 12/20/ | Office | Audiology | Elisabet Munson MS | | | 2019 | Visit | | [facility] [address] | | | | | | [place] [address] [place] | | | | | | [place] [address] | | | | | | [phone] | | | | | | | | +--------+---------+ + + + | 12/20/ | Office | Otolaryngology | Ulysses Genao MD | | | 2020 | Visit | | [address] [facility] | | | | | | [address] [place], | | | | | | [place] [address] | | | | | | [phone] | | | | | | | | +--------+---------+ + + + documented as of this encounter Visit Diagnoses Not on filedocumented in this encounter"
--- OUTSIDE RECORDS SUMMARY | ~2019-10-17 | XMS | Encounter Summary ---
Demographics + + + | Address | [address] | | | [place] [address] | + + + | Home Phone [...] Team Providers + +------+ + | Care Metalsmith Name | Role | Phone | + [...] + | 10/18/ | Telephone | [facility] | Ulysses Genao MD | Appointment (MRI) | | 2014 | | OTOLARYNGOLOGY [address] | [address] [facility] | | | | | [address] [facility] [address] | [address] [place], | | | | | [place] | [place] [address] | | | | | [address] | [phone] | | | | | [phone] | | | +--------+ + + + [...] | | | | | [place] [address] | | | | | | [phone] | | | | | | | | +--------+---------+ + + + | 12/20/ | Office | Audiology | Elisabet Munson MS | | | 2019 | Visit | | [facility] [address] | | | | | | [address] [place] | | | | | | [place] [address] | | | | | | [phone] | | | | | | | | +--------+---------+ + + + | 12/20/ | Office | Otolaryngology | Ulysses Genao MD | | | 2019 | Visit | | [address] | | | | | | [address] [place], | | | | | | [place] [address] | | | | | | [phone] | | | | | | | | +--------+---------+ + + + documented as of this encounter Visit Diagnoses Not on filedocumented in this encounter"
--- OUTSIDE RECORDS SUMMARY | ~2019-10-17 | XMS | Encounter Summary ---
Demographics + + + | Address | [address] | | | [place] [address] | + + + | Home Phone [...] Providers + +------+ + | Care Camp Head Counselor Name | Role | Phone | + +------+ + | Petrona Thapa | PCP | | | MD | | | + +------+ + Reason for Visit + + + | Reason | Comments | + + + | Pain Management | Sees pain clinic in [facility], Was switched to Simran 150mc [...] | Acquired | | | | [place] [address] | [place] [address] | hypothyroidism; | | | | [phone] | [phone] | Chronic bilateral | | | | [...] with Pain Management Sees pain clinic in [facility], Was switched to Belbuca 150 Transbuccal every 12 hrs Results, Imaging HPI Belindavera Meehan is a 57 y.o. y/o female who presents today for f/u for several issues: Has had a visit w/ the pain in the [facility], [place], and they gave her a trial of [...] and has been on monthly B12 in [facility] for the last several months. REVIEW [...] (See Comments) Confused and questionable for seizures Ayzxlcpgtb-Mktm-Qxrpkjmr Cephalexin Hives Ketorolac Hives Morphine Swelling Tramadol Hcl Nausea Only Rygnakqnsz-Dleq-Jyotjazv Hives and Rash Ciprofloxacin Hives and Rash [...] Note: Parts of this documentwere created using Personally speech recognition software. As a r esult, [...] | | | | | | [address] [place] [address] [place] | | | | | | [place] [address] | | | | | | [phone] | | | | | | | | +--------+---------+ + + + | 12/20/ | Office | Audiology | Elisabet Munson MS | | | 2019 | Visit | | [facility] [address] | | | | | | [address] [place] | | | | | | [place], [place] [address] | | | | | | [phone] | | | | | | | | +--------+---------+ + + + | 12/20/ | Office | Otolaryngology | Ulysses Genao MD | | | 2019 | Visit | | [address] | | | | | | [address] [place], | | | | | | [place] [address] | | | | | | [phone] | | | | | | | [...]
--- OUTSIDE RECORDS SUMMARY | ~2019-10-17 | XMS | Encounter Summary ---
Demographics + + + | Address | [address] | | | [place] [address] | + + + | Home Phone [...] Providers + +------+ + | Care Piano Technician Name | Role | Phone | [...] as of this encounter Progress Notes Interface, Route Driver In - 01/11/2005 7:39 PM PDT Referred [...] 3-6 months time. She is coming from [place] so this can be scheduled on the same day of her physician visit. General surgery can schedule this. 5. Indra's business card with contact information for questions. Svetlana Maki R.D., LKyrie. SR/y39 P [phone] cc: documente d in this encounter Plan of Treatment Not on filedocumented as of this encounter Visit Diagnoses Not on filedocumented in this encounter"
--- OUTSIDE RECORDS SUMMARY | ~2019-10-17 | XMS | Encounter Summary ---
Demographics + + + | Address | [address] | | | [place] [address] | + + + | Home Phone [...] Providers + +------+ + | Care Mixed Signal Design Engineer Name | Role | Phone [...] 2007 | Only | [address] | [phone] | | | | | Rd Mailcode: [id number] | | | | | | [place], [place] | | | | | | [address] | | | | | | [phone] | | | +--------+ + + + [...] + | [facility] DE[facility] | [facility] [address] | [place] [address] | | | PATHOLOGY | [address] | | | + + + + + | [place] DEPARTMENT OF | [facility] | [place] [address] | | | PATHOLOGY | [address] | | | + + + + + documented in this encounter Visit Diagnoses Not on filedocumented in this encounter"
--- OUTSIDE RECORDS SUMMARY | ~2019-10-17 | XMS | Encounter Summary ---
Demographics + + + | Address | [address] | | | [place] [address] | + + + | Home Phone [...] Providers + +------+ + | Care Drawer Liner Name | Role | Phone | [...] Floor | | | | | | [place], [place] | | | | | | [address] | | | | | | [phone] | | | +--------+ + + + [...] No: | | | | | | [id number] Name: | | | | | | BELINDA MEEHAN | | | | | | Birthday: 1960 | | | | | | Sex: F | | | | | | Alias:Patient Location: | | | | | | [id number]: Outpatient | | | | | | ActiveOrdering | | | | | | Physician: JOSÉ MIGUEL | | | | | | MARYSOL MORENO SCAPULA | | | | | | COMPLETE completed on | | | | | | 01/01/2009 11:55 | | | | | | AMAccession # | | | | | | [id number]:LEFT | | | | | | SCAPULA [...]
--- OUTSIDE RECORDS SUMMARY | ~2019-10-17 | XMS | Encounter Summary ---
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 Provider: DELFINA MOLINA ANP Nathalia Keyes - 007 12:04 PM PST Physical Therapy Medicare Progress Note Date: 08/12/2006 Belinda Meehan [id number]. 1960 Start of Care: 06/23/2006 Referring Provider: [...]
--- OUTSIDE RECORDS SUMMARY | ~2019-10-17 | XMS | Encounter Summary ---
Demographics + + + | Address | [address] | | | [place] [address] | + + + | Home Phone [...] Providers + +------+ + | Care Music Teacher Name | Role | Phone [...] + + | 05/26/ | Telephone | [facility] | Alanis, | Diarrhea | | 2018 | | MEDICINE [address] [place] [address] | MD Petrona | | | | | [facility] | [address] [place] [address] | | | | | [place] [address] | [place] [address] | | | | | [phone] | [phone] | | | | | | | [...] | | | | | [place] [address] | | | | | | [phone] | | | | | | | | +--------+---------+ + + + | 12/20/ | Office | Audiology | Elisabet Munson MS | | | 2019 | Visit | | [facility]Qi [address] | | | | | | [place] [address] [place] | | | | | | [place] [address] | | | | | | [phone] | | | | | | | | +--------+---------+ + + + | 12/20/ | Office | Otolaryngology | Ulysses Genao MD | | | 2020 | Visit | | [address] [facility] | | | | | | [address] [place], | | | | | | [place] [address] | | | | | | [phone] | | | | | | | | +--------+---------+ + + + documented as of this encounter Visit Diagnoses Not on filedocumented in this encounter"
--- OUTSIDE RECORDS SUMMARY | ~2019-10-17 | XMS | Encounter Summary ---
Demographics + + + | Address | [address] | | | [place] [address] | + + + | Home Phone [...] Team Providers + +------+ + | Care Exterior Work Helper Name | Role | Phone | [...] + + | 04/08/ | Telephone | [facility] | Alanis, | Headache | | 2017 | | MEDICINE [address] [place] [address] | MD Petrona | | | | | [facility] | [address] [facility] | | | | | [place] [address] | [place] [address] | | | | | [phone] | [phone] | | | | | | | [...] | | | | | [place] [address] | | | | | | [phone] | | | | | | | | +--------+---------+ + + + | 12/20/ | Office | Audiology | Elisabet Munson MS | | | 2019 | Visit | | [facility] [address] | | | | | | [place] [address] [place] | | | | | | [place] [address] | | | | | | [phone] | | | | | | | | +--------+---------+ + + + | 12/20/ | Office | Otolaryngology | Ulysses Genao MD | | | 2020 | Visit | | [address] [facility] | | | | | | [address] [place], | | | | | | [place] [address] | | | | | | [phone] | | | | | | | | +--------+---------+ + + + documented as of this encounter Visit Diagnoses Not on filedocumented in this encounter"
--- OUTSIDE RECORDS SUMMARY | ~2019-10-17 | XMS | Encounter Summary ---
Demographics + + + | Address | [address] | | | [place] [address] | + + + | Home Phone [...] Providers + +------+ + | Care Cad Application Support Specialist Name | Role | Phone [...] + + | 09/16/ | Telephone | [facility] | Alanis, | Results, Imaging | | 2019 | | MEDICINE [address] | MD Petrona | | | | | [facility] | [address] [place] [address] | | | | | [place] [address] | [place] [address] | | | | | [phone] | [phone] | | | | | | | [...] GABRIEL | | | | | | [place] [address] | | | | | | [phone] | | | | | | | | +--------+---------+ + + + | 12/20/ | Office | Audiology | Elisabet Munson MS | | | 2019 | Visit | | [facility] [address] | | | | | | [place] [address] [place] | | | | | | [place] [address] | | | | | | [phone] | | | | | | | | +--------+---------+ + + + | 12/20/ | Office | Otolaryngology | Ulysses Genao MD | | | 2020 | Visit | | [address] [facility] | | | | | | [address] [place], | | | | | | [place] [address] | | | | | | [phone] | | | | | | | | +--------+---------+ + + + documented as of this encounter Visit Diagnoses Not on filedocumented in this encounter"
--- OUTSIDE RECORDS SUMMARY | ~2019-10-17 | XMS | Encounter Summary ---
Demographics + + + | Address | [address] | | | [place] [address] | + + + | Home Phone [...] + +------+ + | Care Duct Layer Helper Name | Role | Phone | [...] + | 04/09/ | Refill | [facility] | Alanis, | Medication Refill | | 2017 | | MEDICINE [place] | MD Petrona | | | | | [address] | [address] [facility] | | | | | [place] | [facility] [place] [address] | | | | | [address] | [phone] | | | | | [phone] | | | +--------+--------+ + + + [...] HOSPITAL | | | | | | [place] [address] | | | | | | [phone] | | | | | | | | +--------+---------+ + + + | 12/20/ | Office | Audiology | Elisabet Munson MS | | | 2019 | Visit | | [facility] [address] | | | | | | [address] | | | | | | [place] [address] | | | | | | [phone] | | | | | | | | +--------+---------+ + + + | 12/20/ | Office | Otolaryngology | Ulysses Genao MD | | | 2020 | Visit | | [address] [place] | | | | | | [address] [place], | | | | | | [place] [address] | | | | | | [phone] | | | | | | | | +--------+---------+ + + + documented as of this encounter Visit Diagnoses Not on filedocumented in this encounter"
--- OUTSIDE RECORDS SUMMARY | ~2019-10-17 | XMS | Encounter Summary ---
Demographics + + + | Address | [address] | | | [place] [address] | + + + | Home Phone [...] Providers + +------+ + | Care Parts Interpreter Name | Role | Phone | [...] of this encounter Progress Notes Interface, Research Methodologist In - 01/12/2005 10:09 AM PDT [id number] GEOVANNI Barnes Clinic Date: 12/11/2004 Clinic: Telephone [...] sent to Ms. Meehan' home address at [facility] [address] [address] The address was confirmed with Ms. Meehan prior to sending. Ms. Meehan has a followup appointment in Dr. Padgett's clinic on December 19, 2004. Nathalia Richard R.N., B.S.N. Liliya Kirkpatrick. / [id number] / [id number] / [id number] / Electronically signed by Nuris Chapman 12-20-2004 05:05:06 PM docushazia i n this encounter Plan of Treatment Not on filedocumented as of this encounter Visit Diagnoses Not on filedocumented in this encounter"
--- OUTSIDE RECORDS SUMMARY | ~2019-10-17 | XMS | Encounter Summary ---
Demographics + + + | Address | [address] | | | [place] [address] | + + + | Home Phone [...] Providers + +------+ + | Care Social Problems Specialist Name | Role | Phone | [...] [id number] | | | | | | [place], [place] | | | | | | [address] | | | | | | [phone] | | | +--------+ + + + [...]
--- OUTSIDE RECORDS SUMMARY | ~2019-10-17 | XMS | Encounter Summary ---
Demographics + + + | Address | [address] | | | [place] [address] | + + + | Home Phone [...] Team Providers + +------+ + | Care Lollypop Machine Operator Name | Role | Phone [...] [facility] | | | | | | [facility] | | | | | | and Healing, | | | | | | Building [address]th | | | | | | Floor [place], [place] | | | | | | [address] | | | | | | [phone] | | | +--------+ + + + [...]
--- OUTSIDE RECORDS SUMMARY | ~2019-10-17 | XMS | Encounter Summary ---
Demographics + + + | Address | [address] | | | [place] [address] | + + + | Home Phone [...] + +------+ + | Care Car Sales Representative Name | Role | Phone [...] [facility] | | | | | | [facility] | | | | | | and Healing, | | | | | | Building [address]th | | | | | | Floor [place], [place] | | | | | | [address] | | | | | | [phone] | | | +--------+ + + + [...]
--- OUTSIDE RECORDS SUMMARY | ~2019-10-17 | XMS | Encounter Summary ---
Demographics + + + | Address | [address] | | | [place] [address] | + + + | Home Phone [...] Team Providers + +------+ + | Care Emg Technician Name | Role | Phone | [...] [address] | | | | | [place], [place] | [place], [place] | | | | | [address] | [address] | | | | | [phone] | [phone] | | | | | | | [...]
--- OUTSIDE RECORDS SUMMARY | ~2019-10-17 | XMS | Encounter Summary ---
Demographics + + + | Address | [address] | | | [place] [address] | + + + | Home Phone [...] Team Providers + +------+ + | Care Window Installer Name | Role | Phone | [...] | | | Metabolism | bypass | [address] | [address] | | | | | Hypovitamino | [address], | Ave | | | | | sis D B12 | [address] | [place], [place] | | | | | nutritional | [place], [place] | [address] | | | | | deficiency | [address] | Phone: | | | | | Other | Phone: | [phone] | | | | | protein-jose manuel | [phone] | Fax: | | | | | nick | Fax: | [phone] | | | | | malnutrition | [phone] | | | | | | Weight | | | | | | | gain | | | | | | | Procedures | | | | | | | CONSULT TO | | | | | | | ENDO | | | | | | | [address] | | | +--------+--------+ + + + [...] | | [facility] | [place], [place] | (Primary Dx); | | | | [address] | [address] | Metabolic syndrome X | | | | [address] | [phone] | 250.80; Essential | | | | Physician's Pavilion | | hypertension 401.9; | | | | Physician's | | Unstable balance | | | | Pavilion [place], | | | | | | [place] [address] | | | | | | [phone] | | | +--------+---------+ + + + [...] Hives Mainly in the legs Clindamycin Codeine Wyzcffo-Jmzjyzolej-Fhk-Caff Balance problems Fioricet W/Codeine (Yyulqoxitr-Tvflebeioy-Gna-Cod) Keflex (Cephalexin) Morphine IM ( only in [facility]) made gut pain worse 08/27/06: Trial [...] U/L 41 ANION GAP 8 VITAMIN B12, [id number] pg/ml >2000 (H) HEMOGLOBIN A1C <=5.6 % [...] SERUM 15.0-85.0 pg/ml 222.9 (H) VITAMIN B12, [id number] pg/ml > 2000 HEMOGLOBIN A1C <=5.6 % [...] home vi a a long drive to [place]. 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 This c an be most easily accomplished [...] + +--------+ + + + | ME COLLECTION | Routin | 08/09/2013 | IGT [...] [facility] | [address] | [place], [place] | | | [facility]ARE | [address] | [address] | | | TESTS | | | [...] VERONICA | [address] | [place], [place] | | | [facility] | [address] | [address] | | | TESTS | | | [...]
--- OUTSIDE RECORDS SUMMARY | ~2019-10-17 | XMS | Encounter Summary ---
Demographics + + + | Address | [address] | | | [place] [address] | + + + | Home Phone [...] Providers + +------+ + | Care Weight Reducing Technician Name | Role | Phone | [...] [id number] | | | | | | [place], [place] | | | | | | [address] | | | | | | [phone] | | | +--------+ + + + [...] | | | | [facility] | | | | | | Laboratories. | | | | + + + + + + + + | Specimen | + + | | + + + + + + + | Performing | Address | City/State/Zipcode | Phone Number | | Organization | | | | + + + + + | [facility] | [address] | [place] [address] | | | LABORATORY | | | | + + + + + documented in this encounter Visit Diagnoses Not on filedocumented in this encounter"
--- OUTSIDE RECORDS SUMMARY | ~2019-10-17 | XMS | Encounter Summary ---
Demographics + + + | Address | [address] | | | [place] [address] | + + + | Home Phone [...] Providers + +------+ + | Care Cast Shell Grinder Name | Role | Phone | [...]
--- OUTSIDE RECORDS SUMMARY | ~2019-10-17 | XMS | Encounter Summary ---
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 1960 Start of Care: 06/23/2006 Referring Provider: [...] patient has increased her walking time at [employer] to 30-40 minutes daily, no t [...] [facility] | Procedures | Routin | Spondylosis [...] [facility] | Procedures | Routin | Spondylosis [...]
--- OUTSIDE RECORDS SUMMARY | ~2019-10-17 | XMS | Encounter Summary ---
Demographics + + + | Address | [address] | | | [place] [address] | + + + | Home Phone [...] Team Providers + +------+ + | Care Geriatric Physical Therapist Name | Role | Phone [...] | | [facility] | [place], [place] | | | | | [address] | [address] | | | | | [address] | [phone] | | | | | Physician's | | | | | | Pavilion, [facility] floor | | | | | | [place], [place] | | | | | | [address] | | | | | | [phone] | | | +--------+ + + + [...] by | | | | | | [facility] | | | | | | Regional Laboratory. | | | | + + + + + + + + | Specimen | + + | | + + + + + + + | Performing | Address | City/State/Zipcode | Phone Number | | Organization | | | | + + + + + | [facility] | [address] | [place] [address] | | | LABORATORY | | | [...] pg/mL | | | | | [facility] | | | | | | Laboratory. | | | | + + + + + + + + | Specimen | + + | | + + + + + + + | Performing | Address | City/State/Zipcode | Phone Number | | Organization | | | | + + + + + | [facility] | [address] | [place] [address] | | | LABORATORY | | | [...] + | [facility] | [address] | [place] [address] | | | PATHOLOGY | [address] | | | + + + + + | [facility]PART[facility] | [address] | [place] [address] | | | PATHOLOGY | [address] | | | + + + + + documented in this encounter Visit Diagnoses Not on filedocumented in this encounter"
--- OUTSIDE RECORDS SUMMARY | ~2019-10-17 | XMS | Encounter Summary ---
Demographics + + + | Address | [address] | | | [place] [address] | + + + | Home Phone [...] Team Providers + +------+ + | Care Flying I Instructor Name | Role | Phone | [...] Mychal Kovacs | | | | | [facility] | [place], [place] | | | | | [address] | [address] | | | | | [address] | [phone] | | | | | Physician's Pavilion | | | | | | Physician's | | | | | | Pavilion [place], | | | | | | [place] [address] | | | | | | [phone] | | | +--------+ + + + [...]
--- OUTSIDE RECORDS SUMMARY | ~2019-10-17 | XMS | Encounter Summary ---
Demographics + + + | Address | [address] | | | [place] [address] | + + + | Home Phone [...] Team Providers + +------+ + | Care Bacon De Rinder Name | Role | Phone | + [...] + + | 01/31/ | Telephone | [facility] | Alanis, | Foot Pain | | 2019 | | MEDICINE [address] [place] [address] | MD Petrona | | | | | [facility] | [address] [place] [address] | | | | | [place] [address] | [place] [address] | | | | | [phone] | [phone] | | | | | | | [...] | | | | | [place] [address] | | | | | | [phone] | | | | | | | | +--------+---------+ + + + | 12/20/ | Office | Audiology | Elisabet Munson MS | | | 2019 | Visit | | [facility] [address] | | | | | | [place] [address] [place] | | | | | | [place] [address] | | | | | | [phone] | | | | | | | | +--------+---------+ + + + | 12/20/ | Office | Otolaryngology | Ulysses Genao MD | | | 2020 | Visit | | [address] [facility] | | | | | | [address] [place], | | | | | | [place] [address] | | | | | | [phone] | | | | | | | | +--------+---------+ + + + documented as of this encounter Visit Diagnoses Not on filedocumented in this encounter"
--- OUTSIDE RECORDS SUMMARY | ~2019-10-17 | XMS | Encounter Summary ---
Demographics + + + | Address | [address] | | | [place] [address] [...] Team Providers + +------+ + | Care Tick Eradicator Name | Role | Phone | + [...] OTOLARYNGOLOGY [address] | [address] [facility] | | | | | [address] [facility] [address] | [address] [place], | | | | | [place] | [place] [address] | | | | | [address] | [phone] | | | | | [phone] | | | +--------+ + + + [...] | | | [employer] [address] | | | | | | [place] [address] | | | | | | [phone] | | | | | | | | +--------+---------+ + + + | 12/20/ | Office | Audiology | Elisabet Munson MS | | | 2019 | Visit | | [facility] [address] | | | | | | [place] [address] [address] | | | | | | [place] [address] | | | | | | [phone] | | | | | | | | +--------+---------+ + + + | 12/20/ | Office | Otolaryngology | Ulysses Genao MD | | | 2019 | Visit | | [address] [facility] | | | | | | [address] [place], | | | | | | [place] [address] | | | | | | [phone] | | | | | | | | +--------+---------+ + + + documented as of this encounter Visit Diagnoses Not on filedocumented in this encounter"
--- OUTSIDE RECORDS SUMMARY | ~2019-10-17 | XMS | Encounter Summary ---
Demographics + + + | Address | [address] | | | [place] [address] | + + + | Home Phone [...] Providers + +------+ + | Care Harvest Contractor Name | Role | Phone | + +------+ + | Pedrito Gutierrez MD | PCP | | + +------+ + Encounter Details +--------+ + + + + | Date | Type | Department | Care Team | Description | +--------+ + + + + | 07/30/ | Office | [facility] 700 | Clinic, | Progress Note | | 2006 | Visit-Trans | [facility] | Endocrinology | | | | kurt | Sacha | | | | | | [facility], | | | | | | 7th floor | | | | | | [place], [place] | | | | | | [address] | | | | | | [phone] | | | +--------+ + + + [...] as of this encounter Progress Notes Interface, Solution Advisor In - 09/16/2006 7:22 AM PDT [id number] GEOVANNI Barnes [id number] Clinic Date: 07/30/2006 Clinic: Endocrinology Subjective: Belinda [...] year. Beto Meeks M.D. PD / HS [id number] / [id number] / [id number] / [id number] cc: Joanna Arshad M.D. Jonathan Hitzman, M.D. [address] [facility] [place] [address] Electronically signed by Beto Meeks 09-15-2006 11:40:17 PM documented in this encounter Plan of Treatment Not on filedocumented as of this encounter Visit Diagnoses Not on filedocumented in this encounter"
--- OUTSIDE RECORDS SUMMARY | ~2019-10-17 | XMS | Encounter Summary ---
Demographics + + + | Address | [address] | | | [place] [address] | + + + | Home Phone [...] + +------+ + | Care Director Of Alumni Relations Name | Role | Phone | + [...] + | 08/12/ | Refill | [facility] | Alanis, | Medication Refill | | 2017 | | MEDICINE [address] [place] [address] | MD Petrona | | | | | [facility] | [address] [place] [address] | | | | | [place] [address] | [place] [address] | | | | | [phone] | [phone] | | | | | | | [...] | | | | | [place] [address] | | | | | | [phone] | | | | | | | | +--------+---------+ + + + | 12/20/ | Office | Audiology | Elisabet Munson MS | | | 2019 | Visit | | [facility] [address] | | | | | | [place] [address] [place] | | | | | | [place] [address] | | | | | | [phone] | | | | | | | | +--------+---------+ + + + | 12/20/ | Office | Otolaryngology | Ulysses Genao MD | | | 2020 | Visit | | [address] [facility] | | | | | | [address] [place], | | | | | | [place] [address] | | | | | | [phone] | | | | | | | | +--------+---------+ + + + documented as of this encounter Visit Diagnoses Not on filedocumented in this encounter"
--- OUTSIDE RECORDS SUMMARY | ~2019-10-17 | XMS | Encounter Summary ---
Demographics + + + | Address | [address] | | | [place] [address] | + + + | Home Phone [...] + +------+ + | Care Guest Relations Officer Name | Role | Phone | [...] of this encounter Progress Notes Interface, Leather Stamper In - 01/12/2005 6:32 AM PDT Referred [...] she was going to go to the [employer] food store and try to find another [...] two months. Svetlana Maki R.D. SR/x35 P [id number] signed by Interface, Leather Stamper In at 01/12/2005 6:32 AM [facility] umented in this encounter Plan of Treatment Not on filedocumented as of this encounter Visit Diagnoses Not on filedocumented in this encounter"
--- OUTSIDE RECORDS SUMMARY | ~2019-10-17 | XMS | Encounter Summary ---
Demographics + + + | Address | [address] | | | [place] [address] | + + + | Home Phone [...] Providers + +------+ + | Care Lift Supervisor Name | Role | Phone | [...] + + | 11/09/ | Telephone | [facility] | Alanis, | Medical Problem | | 2018 | | MEDICINE [address] [place] [address] | MD Petrona | | | | | [facility] | [address] [place] [address] | | | | | [place] [address] | [place] [address] | | | | | [phone] | [phone] | | | | | | | [...] | | | | | [place] [address] | | | | | | [phone] | | | | | | | | +--------+---------+ + + + | 12/20/ | Office | Audiology | Elisabet Munson MS | | | 2019 | Visit | | [facility] [address] | | | | | | [address] [place] [address] [place] | | | | | | [place] [address] | | | | | | [phone] | | | | | | | | +--------+---------+ + + + | 12/20/ | Office | Otolaryngology | Ulysses Genao MD | | | 2020 | Visit | | [address] [place] | | | | | | [address] [place], | | | | | | [place] [address] | | | | | | [phone] | | | | | | | | +--------+---------+ + + + documented as of this encounter Visit Diagnoses Not on filedocumented in this encounter"
--- OUTSIDE RECORDS SUMMARY | ~2019-10-17 | XMS | Encounter Summary ---
Demographics + + + | Address | [address] | | | [place] [address] | + + + | Home Phone [...] Providers + +------+ + | Care Night Auditor Name | Role | Phone | [...] + + | 04/15/ | Telephone | [facility] INTER[facility] | Alanis, | Other (Pain clinic) | | 2019 | | MEDICINE [address] [place] [address] | MD Petrona | | | | | [facility] | [address] [place] [address] | | | | | [place] [address] | [place] [address] | | | | | [phone] | [phone] | | | | | | | [...] | | | | | [place] [address] | | | | | | [phone] | | | | | | | | +--------+---------+ + + + | 12/20/ | Office | Audiology | Elisabet Munson MS | | | 2019 | Visit | | [facility] [address] | | | | | | [address] [place] | | | | | | [place] [address] | | | | | | [phone] | | | | | | | | +--------+---------+ + + + | 12/20/ | Office | Otolaryngology | Ulysses Genao MD | | | 2020 | Visit | | [address] [place] | | | | | | [address] [place], | | | | | | [place] [address] | | | | | | [phone] | | | | | | | | +--------+---------+ + + + documented as of this encounter Visit Diagnoses Not on filedocumented in this encounter"
--- OUTSIDE RECORDS SUMMARY | ~2019-10-17 | XMS | Encounter Summary ---
Demographics + + + | Address | [address] | | | [place] [address] | + + + | Home Phone [...] + | 10/05/ | Telephone | [facility] INTER[facility] | Alanis, | Injections | | 2019 | | MEDICINE [address] [place] [address] | MD Petrona | | | | | [facility] | [address] [place] [address] | | | | | [place] [address] | [place] [address] | | | | | [phone] | [phone] | | | | | | | [...] | | | | | [place] [address] | | | | | | [phone] | | | | | | | | +--------+---------+ + + + | 12/20/ | Office | Audiology | Elisabet Munson MS | | | 2019 | Visit | | [facility] [address] | | | | | | [place] [address] [place] | | | | | | [place] [address] | | | | | | [phone] | | | | | | | | +--------+---------+ + + + | 12/20/ | Office | Otolaryngology | Ulysses Genao MD | | | 2019 | Visit | | [address] [facility] | | | | | | [address] [place], | | | | | | [place] [address] | | | | | | [phone] | | | | | | | | +--------+---------+ + + + documented as of this encounter Visit Diagnoses Not on filedocumented in this encounter"
--- OUTSIDE RECORDS SUMMARY | ~2019-10-17 | XMS | Encounter Summary ---
Demographics + + + | Address | [address] | | | [place] [address] | + + + | Home Phone [...] Providers + +------+ + | Care Reporter Name | Role | Phone | [...] | phalanx of | [address] | [address] | | | | | left great | [place], | Phone: | | | | | toe, initial | [place] | [phone] | | | | | encounter | [address] | Fax: | | | | | | Phone: | [phone] | | | | | | [phone] | | | | | | | Fax: | | | | | | | [phone] | | +--------+ + + + + + Encounter Details +--------+ + + + + | Date | Type | Department | Care Team | Description | +--------+ + + + + | 08/26/ | Orders Only | [facility] | Alanis, | Closed nondisplaced | | 2018 | | MEDICINE [address] | MD Petrona | fracture of proximal | | | | [address] [place] | [address] [place] | phalanx of left | | | | [place] [address] | [place] [address] | great toe, initial | | | | [phone] | [phone] | encounter (Primary | | | | [...] | | | | | [place] [address] | | | | | | [phone] | | | | | | | | +--------+---------+ + + + | 12/20/ | Office | Audiology | Elisabet Munson MS | | | 2019 | Visit | | [facility] | | | | | | [place] [address] [place] | | | | | | [place] [address] | | | | | | [phone] | | | | | | | | +--------+---------+ + + + | 12/20/ | Office | Otolaryngology | Ulysses Genao MD | | | 2020 | Visit | | [facility] | | | | | | [address] [place], | | | | | | [place] [address] | | | | | | [phone] | | | | | | | [...]
--- OUTSIDE RECORDS SUMMARY | ~2019-10-17 | XMS | Encounter Summary ---
Demographics + + + | Address | [address] | | | [place] [address] | + + + | Home Phone [...] Providers + +------+ + | Care Lining Presser Name | Role | Phone | [...] | | | | FAMILY | Rd [place], | | | | | | MEDICINE | [place] | | | | | | [address] | [address] | | | | | | [place] | Phone: | | | | | | [place], | [phone] | | | | | | [place] [address] | Fax: | | | | | | Phone: | [phone] | | | | | | [phone] | | | | | | | Fax: | | | | | | | [phone] | | +--------+--------+ + + + + [...] | (Primary Dx) | | | | [place] [facility] | [place], [place] | | | | | and Healing, | [address] | | | | | [facility] | [phone] | | | | | Floor [place], [place] | | | | | | [address] | | | | | | [phone] | | | +--------+---------+ + + + [...] surgery. She is being followe d with rust providers for metabolic syndrome and hypothyroidism - Dr. Meeks, emotional issue s - Dr. Lukasz Ogden, and her PCP in [place]. She has sx of stress urinary incontinence [...] treated. She would like a urology or POT LINER referral as appropriate. Labs ordered. See in [...] [place] | | | | | | [place] [address] | | | | | | [phone]. | | | | | | Sincere [...] [facility] | [address] | [place], [place] | | | [facility] | | [address] | | + + + + + [...] | pg/mL | | | | | [facility]. | | | | + + + + + + + + | Specimen | + + | | + + + + + + + | Performing | Address | City/State/Zipcode | Phone Number | | Organization | | | | + + + + + | [facility] | [address] | [place] [address] | | | LABORATORY | | | [...] RLB ([facility] [facility]) | | | [facility] [place] [address] | | | [place] [address] | | + + + + + + + + | Performing | Address | City/State/Zipcode | Phone Number | | Organization | | | | + + + + + | [facility] | [address] | [place] [address] | | | LABORATORY | | | [...] RLB ([address] [facility]) | | | [facility] [place] [address] | | | [place] [address] | | + + + + + + + + | Performing | Address | City/State/Zipcode | Phone Number | | Organization | | | | + + + + + | [facility] | [address] | [place] [address] | | | LABORATORY | | | [...] Performed At | + + + | [address] Estimated GFR > 60 mL/min/1.73 sq m if non- | [facility] | | [address] Estimated GFR > 60 mL/min/1.73 sq m [...] [facility] DEPARTMENT OF | [address] [facility] | [place] [address] | | | PATHOLOGY | [address] | | | + + + + + | [facility] DEPARTMENT OF | [address] [facility] | [place] [address] | | | PATHOLOGY | [address] [...] | [facility] | [address] [facility] | [place] [address] | | | PATHOLOGY | [address] | | | + + + + + | [facility] | [address] [facility] | [place] [address] | | | PATHOLOGY | [address] | | | + + + + + documented in this encounter Visit Diagnoses + + | Diagnosis | + + | Status post bariatric surgery - Primary Bariatric surgery status | + + documented in this encounter"
--- OUTSIDE RECORDS SUMMARY | ~2019-10-17 | XMS | Encounter Summary ---
Demographics + + + | Address | [address] | | | [place] [address] | + + + | Home Phone [...] + + | 11/23/ | Telephone | [facility] | Luther Brito MD | Other | | 2018 | | GASTROENTEROLOGY | [address] [facility] | | | | | [address] [facility] | [place], [place] | | | | | [address] [place], [place] | [address] | | | | | [address] | [phone] | | | | | [phone] | | | +--------+ + + + [...] | | | | | [place] [address] | | | | | | [phone] | | | | | | | | +--------+---------+ + + + | 12/20/ | Office | Audiology | Elisabet Munson MS | | | 2019 | Visit | | [facility] [address] | | | | | | [place] [address] [place] | | | | | | [place] [address] | | | | | | [phone] | | | | | | | | +--------+---------+ + + + | 12/20/ | Office | Otolaryngology | Ulysses Genao MD | | | 2020 | Visit | | [address] [facility] | | | | | | [address] [place], | | | | | | [place] [address] | | | | | | [phone] | | | | | | | | +--------+---------+ + + + documented as of this encounter Visit Diagnoses Not on filedocumented in this encounter"
--- OUTSIDE RECORDS SUMMARY | ~2019-10-17 | XMS | Encounter Summary ---
Demographics + + + | Address | [address] | | | [place] [address] [...] Providers + +------+ + | Care Brick Unloader Tender Name | Role | Phone | [...] + + | 03/19/ | Telephone | [facility] INTER[facility] | Alanis, | Other (bowel issues) | | 2017 | | MEDICINE [address] [place] [address] | MD Petrona | | | | | [facility] | [address] [place] [address] | | | | | [place] [address] | [place] [address] | | | | | [phone] | [phone] | | | | | | | [...] | | | | | [place] [address] | | | | | | [phone] | | | | | | | | +--------+---------+ + + + | 12/20/ | Office | Audiology | Elisabet Munson MS | | | 2019 | Visit | | [facility] | | | | | | [place] [address] [place] | | | | | | [place] [address] | | | | | | [phone] | | | | | | | | +--------+---------+ + + + | 12/20/ | Office | Otolaryngology | Ulysses Genao MD | | | 2020 | Visit | | [address] [place] | | | | | | [address] [place], | | | | | | [place] [address] | | | | | | [phone] | | | | | | | | +--------+---------+ + + + documented as of this encounter Visit Diagnoses Not on filedocumented in this encounter"
--- OUTSIDE RECORDS SUMMARY | ~2019-10-17 | XMS | Encounter Summary ---
Demographics + + + | Address | [address] | | | [place] [address] | + + + | Home Phone [...] Team Providers + +------+ + | Care Addressing Machine Operator Name | Role | Phone [...] | | Procedures | [place], | [address] Phone: | | | | | OFFICE VISIT | [place] | [phone] | | | | | REGULAR | [address] | Fax: | | | | | | Phone: | [phone] | | | | | | [phone] | | | | | | | Fax: | | | | | | | [phone] | | +--------+--------+ + + + + Encounter Details +--------+---------+ + + + | Date | Type | Department | Care Team | Description | +--------+---------+ + + + | 10/18/ | Office | [facility] | Elisabet Munson, | Encounter for | | 2014 | Visit | AUDIOLOGY AND | [facility] [address] | hearing evaluation | | | | HEARING AID SERVICES | [facility] [address] [facility] | (Primary Dx) | | | | [address] | [place] [address] | | | | | [facility] [address] [facility] | [phone] | | | | | [place] [address] | | | | | | [phone] | | | +--------+---------+ + + + [...] | | | | | | [address] [facility] | | | | | | [place] [address] | | | | | | [phone] | | | | | | | | +--------+---------+ + + + | 12/20/ | Office | Audiology | Elisabet Munson MS | | 2019 | Visit | | [facility] [place] | | | | | | [address] | | | | | | [place] [address] | | | | | | [phone] | | | | | | | | +--------+---------+ + + + | 12/20/ | Office | Otolaryngology | Ulysses Genao MD | | | 2020 | Visit | | [address] [facility] | | | | | | [address] [place], | | | | | | [place] [address] | | | | | | [phone] | | | | | | | [...]
--- OUTSIDE RECORDS SUMMARY | ~2019-10-17 | XMS | Encounter Summary ---
Demographics + + + | Address | [address] | | | [place] [address] | + + + | Home Phone [...] Providers + +------+ + | Care Optical Lathe Operator Name | Role | Phone [...] + + | 01/04/ | Telephone | [facility] | Ulysses Genao MD | Other | | 2017 | | OTOLARYNGOLOGY [address] | [address] [facility] | | | | | [address] [facility] [address] | [address] [place], | | | | | [place] | [place] [address] | | | | | [address] | [phone] | | | | | [phone] | | | +--------+ + + + [...] | | | [facility] [address] [place] | | | | | | [place] [address] | | | | | | [phone] | | | | | | | | +--------+---------+ + + + | 12/20/ | Office | Audiology | Elisabet Munson MS | | | 2019 | Visit | | [facility] [address] | | | | | | [place] [address] [address] | | | | | | [place] [address] | | | | | | [phone] | | | | | | | | +--------+---------+ + + + | 12/20/ | Office | Otolaryngology | Ulysses Genao MD | | | 2019 | Visit | | [address] [facility] | | | | | | [address] [place], | | | | | | [place] [address] | | | | | | [phone] | | | | | | | | +--------+---------+ + + + documented as of this encounter Visit Diagnoses Not on filedocumented in this encounter"
--- OUTSIDE RECORDS SUMMARY | ~2019-10-17 | XMS | Encounter Summary ---
Demographics + + + | Address | [address] | | | [place] [address] | + + + | Home Phone [...] Providers + +------+ + | Care Summer Sessions Director Name | Role | Phone | [...] | Epigastric | T, ANP | [address] | | | | | pain Status | [place], [place] | [address] | | | | | post | [address] | Wilson | | | | | bariatric | | [place], 4th | | | | | surgery | | floor | | | | | Procedures | | [place], [place] | | | | | CONSULT TO | | [address] | | | | | GI PROCEDURE | | Phone: | | | | | UNIT: EGD | | [phone] | | | | | | | Fax: | | | | | | | [phone] | +--------+--------+ + + + + Reason [...] | | | | | | Rd [place], | | | | | | | [place] | | | | | | | [address] | | | | | | | Phone: | | | | | | | [phone] | | | | | | | Fax: | | | | | | | [phone] | +--------+--------+ + + + + Encounter Details +--------+---------+ + + + | Date | Type | Department | Care Team | Description | +--------+---------+ + + + | 08/28/ | Office | Digestive Health | Chris Padgett, | Epigastric Pain | | 2008 | Visit | [place] [address] | [address] | (Primary Dx); Status | | | | Ave Mailcode: CH4S | [facility] [address] | Post Bariatric | | | | Center for [facility] | [place], [place] | Surgery | | | | and Healing, | [address] | | | | | | [phone] | | | | | [place], [place] | | | | | | [address] | | | | | | [phone] | | | +--------+---------+ + + + [...] Performed At | + + + | [id number] Estimated GFR > 60 mL/min/1.73 sq m if non- | [facility] | | [place] 032148 Estimated GFR > 60 mL/min/1.73 sq m if | DEPARTMENT OF | | [place] GFR is estimated using the MDRD equation [...] | [facility] | [address] | [place] [address] | | | PATHOLOGY | [address] | | | + + + + + | [facility] | [address] | [place] [address] | | | PATHOLOGY | [address] | | | + + + + + documented in this encounter Visit Diagnoses + + | Diagnosis | + + | Epigastric pain - Primary Abdominal pain, epigastric | + + | Status post bariatric surgery Bariatric surgery status | + + documented in this encounter"
--- OUTSIDE RECORDS SUMMARY | ~2019-10-17 | XMS | Encounter Summary ---
Demographics + + + | Address | [address] | | | [place] [address] | + + + | Home Phone [...] Team Providers + +------+ + | Care Consultant Intern Name | Role | Phone | [...] + + | 06/03/ | Telephone | [facility] INTER[facility] | Alanis, | Referral | | 2017 | | MEDICINE [address] [place] [address] | MD Petrona | | | | | [facility] | [address] [place] [address] | | | | | [place] [address] | [place] [address] | | | | | [phone] | [phone] | | | | | | | [...] | | | | | [place] [address] | | | | | | [phone] | | | | | | | | +--------+---------+ + + + | 12/20/ | Office | Audiology | Elisabet Munson MS | | | 2019 | Visit | | [facility] [address] | | | | | | [address] [place] [address] [place] | | | | | | [place] [address] | | | | | | [phone] | | | | | | | | +--------+---------+ + + + | 12/20/ | Office | Otolaryngology | Ulysses Genao MD | | | 2020 | Visit | | [address] [facility] | | | | | | [address] [place], | | | | | | [place] [address] | | | | | | [phone] | | | | | | | | +--------+---------+ + + + documented as of this encounter Visit Diagnoses Not on filedocumented in this encounter"
--- OUTSIDE RECORDS SUMMARY | ~2019-10-17 | XMS | Encounter Summary ---
Demographics + + + | Address | [address] | | | [place] [address] [...] Providers + +------+ + | Care Corporate Claims Examiner Name | Role | Phone [...] 2005 | Activity | TRACE Wilson MD [address] | | | | | [place] Mailcode: [id number] | [place], [place] | | | | | [place] | [address] | | | | | [address] | [phone] | | | | | [phone] | | | +--------+ + + + [...] M.D./PathologistT:04/06/ | | | | | | 06:[facility] I have reviewed | | | | [...] | [facility] | [address] | [place] [address] | | | PATHOLOGY | [address] | | | + + + + + | [facility] DEPARTMENT OF | [facility] | [place] [address] | | | PATHOLOGY | [address] | | | + + + + + documented in this encounter Visit Diagnoses Not on filedocumented in this encounter"
--- OUTSIDE RECORDS SUMMARY | ~2019-10-17 | XMS | Encounter Summary ---
Demographics + + + | Address | [address] | | | [place] [address] | + + + | Home Phone [...] Providers + +------+ + | Care Carbon Rod Inserter Name | Role | Phone | [...] + + | 08/26/ | Telephone | [facility] | Alanis, | Headache (Adult - | | 2018 | | MEDICINE [address] | MD Petrona | Recurrent Or Known | | | | [address] [place] | [address] [facility] | Dx Migraines) | | | | [place] [address] | [place] [address] | | | | | [phone] | [phone] | | | | | | | [...] | | | | | [place] [address] | | | | | | [phone] | | | | | | | | +--------+---------+ + + + | 12/20/ | Office | Audiology | Elisabet Munson MS | | | 2019 | Visit | | [facility] [address] | | | | | | [address] [place] | | | | | | [place] [address] | | | | | | [phone] | | | | | | | | +--------+---------+ + + + | 12/20/ | Office | Otolaryngology | Ulysses Genao MD | | | 2019 | Visit | | [address] [facility] | | | | | | [address] [place], | | | | | | [place] [address] | | | | | | [phone] | | | | | | | [...]
--- OUTSIDE RECORDS SUMMARY | ~2019-10-17 | XMS | Encounter Summary ---
Demographics + + + | Address | [address] | | | [place] [address] [...] Providers + +------+ + | Care Tube Drawer Name | Role | Phone | + +------+ + | [place] Thapa | PCP | | | MD | | | + +------+ + Encounter Details +--------+ + + + + | Date | Type | Department | Care Team | Description | +--------+ + + + + | 09/15/ | Hospital | [facility] | Alanis, | Pain in right lower | | 2019 | Encounter | [facility] | MD Petrona | leg | | | | [address] [place] | [address] [facility] | | | | | [place] | [place] [address] | | | | | [address] | [phone] | | | | | [phone] | | | +--------+ + + + [...] | | | | | [place] [address] | | | | | | [phone] | | | | | | | | +--------+---------+ + + + | 12/20/ | Office | Audiology | Elisabet Munson MS | | | 2019 | Visit | | [facility] [address] | | | | | | [address] [place] | | | | | | [place] [address] | | | | | | [phone] | | | | | | | | +--------+---------+ + + + | 12/20/ | Office | Otolaryngology | Ulysses Genao MD | | | 2019 | Visit | | [address] | | | | | | [address] [place], | | | | | | [place] [address] | | | | | | [phone] | | | | | | | [...]
--- OUTSIDE RECORDS SUMMARY | ~2019-10-17 | XMS | Encounter Summary ---
Demographics + + + | Address | [address] | | | [place] [address] | + + + | Home Phone [...] Providers + +------+ + | Care Food Checker Name | Role | Phone | [...] + + | 05/16/ | Office | [facility] | Alanis, | Chronic diarrhea | | 2019 | Visit | MEDICINE [address] [place] [address] | MD Petrona | (Primary Dx); | | | | [facility] | [address] [place] [address] | History of Zoe-en-Y | | | | [place] [address] | [place] [address] | gastric bypass; | | | | [phone] | [phone] | Fibromyalgia; Fatty | | | | [...] Patient presents with Follow-up 1 month HPI eBlinda Meehan is a 59 y.o. y/o female [...] Procedure: COLONOSCOPY; Surgeon: Luther Brito MD; Location: [facility] MEDICAL PROCEDURE UNIT DILATION AND CURETTAGE OF UTERUS ELBOW SURGERY FINGER TRIGGER RELEASE 2003 FINGER TRIGGER RELEASE 2010 GASTRIC BYPASS SURGERY 2004 HYSTERECTOMY 05/14/1980 JOINT REPLACEMENT Bilateral 2007 2008 KNEE ARTHROSCOPY 2005 LAPAROSCOPY 01/27/2015 LAPAROTOMY 2008 ROTATOR CUFF REPAIR 2005 SPINE SURGERY TONSILLECTOMY 1964 UPPER GASTROINTESTINAL ENDOSCOPY N/A 12/18/2017 Procedure: EGD; Surgeon: Luther Brito MD; Location: [facility] MEDICAL PROCEDURE UNIT CURRENT MEDICATIONS Current [...] 1,000 mcg 1,000 mcg Intramuscular Q30 Days [facility] Maddie Thapa MD 1,000 mcg at 04/18/19 0955 ALLERGIES Allergies Allergen Reactions Ensure Diarrhea Food Diarrhea Lactose Mbhnuuhjih-Lrt-Dlem-Codeine Other (See Comments) Balance problems Codeine Sulfate Nausea Only Food Allergy Formula Diarrhea Ensure Levofloxacin Hives, Itching and Rash Butalbital Ropinirole Amitriptyline Hcl Other (See Comments) Confused and questionable for seizures Yfmuuuhbww-Olmn-Ktjsjhfk Rash duplicate Iryvsivnwv-Ntec-Jmdrkwiu Hives and Rash Cephalexin Hives Ciprofloxacin Hives [...] 1. Parts of this documentwere created using [employer] speech recognition software. As a resu lt, [...] | | | | | [place] [address] | | | | | | [phone] | | | | | | | | +--------+---------+ + + + | 12/20/ | Office | Audiology | Elisabet Munson MS | | 2019 | Visit | | [facility] [address] | | | | | | [place] [address] [place] | | | | | | [place] [address] | | | | | | [phone] | | | | | | | | +--------+---------+ + + + | 12/20/ | Office | Otolaryngology | Ulysses Genao MD | | | 2019 | Visit | | [address] | | | | | | [address] [place], | | | | | | [place] [address] | | | | | | [phone] | | | | | | | [...]
--- OUTSIDE RECORDS SUMMARY | ~2019-10-17 | XMS | Encounter Summary ---
Demographics + + + | Address | [address] | | | [place] [address] | + + + | Home Phone [...] | 2006 | Visit | [facility] at [facility] | [address] [facility] | Myelopathy, Lumbar | | | | [place] [address] [place], | Region; Neck Pain; | | | | [place] Mailcode: | [place] [id number] | Herniated Lumbar | | | | [facility] | Interverte[facility] Disc | | | | [facility], | | L4-5; Fibromyalgia | | | | Building | | syndrome 729.1; NO | | | | Floor [place], [place] | | DIAGNOSIS RECEIVED | | | | [address] | | | | | | [phone] | | | +--------+---------+ + + + [...] AM Modules accepted: Level of Service, SmartSet elfnia Molina - 12/02 11:31 AM PDTPhysical Therapy Medicare Authorization/Review Physician Note Date: December 02, 2006 Patient: Belinda Meehan, [id number], 1960 I agree with the proposed Physical Therapy Treatment Plan. Provider: DELFINA BUNDY elfina Molina - 007 11:31 AM PDTThis encounter was opened in error. Please disregard this note. athalia Arora - 007 12:26 PM PDT PROGRESS NOTE: Physical Therapy Medicare Progress Note Date: 10/07/2006 Belinda Meehan [id number]. 1960 Start of Care: 06/23/2006 Referring Provider: [...] dial meniscal tear. Patient continues walking at [place] on a daily basis, (when she is no t in [place] for appts), 30-40 minutes, and her HEP [...] ended: [address] Nath[address] Arora, Physical Therapist License #[id number] documented in this encoun ter Plan of Treatment + + +--------+ + + | Name | Type | Priori | Associated Diagnoses | Order Schedule | | | | ty | | | + + +--------+ + + | [place] [facility] | Procedures | Routin | Spondylosis [...]
--- OUTSIDE RECORDS SUMMARY | ~2019-10-17 | XMS | Encounter Summary ---
Demographics + + + | Address | [address] | | | [place] [address] | + + + | Home Phone [...] Providers + +------+ + | Care Tip Puncher Name | Role | Phone | [...] + | 11/26/ | Refill | [facility] | Alanis, | Medication Refill | | 2018 | | MEDICINE [address] [place] [address] | MD Petrona | | | | | [facility] | [address] [place] [address] | | | | | [place] [address] | [place] [address] | | | | | [phone] | [phone] | | | | | | | [...] | | | | | [place] [address] | | | | | | [phone] | | | | | | | | +--------+---------+ + + + | 12/20/ | Office | Audiology | Elisabet Munson MS | | | 2019 | Visit | | [facility] [address] | | | | | | [place] [address] [place] | | | | | | [place] [address] | | | | | | [phone] | | | | | | | | +--------+---------+ + + + | 12/20/ | Office | Otolaryngology | Ulysses Genao MD | | | 2019 | Visit | | [address] [facility] | | | | | | [address] [place], | | | | | | [place] [address] | | | | | | [phone] | | | | | | | | +--------+---------+ + + + documented as of this encounter Visit Diagnoses + + | Diagnosis | + + | Chronic diarrhea Diarrhea | + + documented in this encounter"
--- OUTSIDE RECORDS SUMMARY | ~2019-10-17 | XMS | Encounter Summary ---
Demographics + + + | Address | [address] | | | [place] [address] | + + + | Home Phone [...] Providers + +------+ + | Care Roustabout Crew Leader Name | Role | Phone | [...] + | 07/17/ | Telephone | [facility] | Alanis, | Medical Problem | | 2017 | | MEDICINE [address] [place] [address] | MD Petrona | | | | | [facility] | [address] [place] [address] | | | | | [place] [address] | [place] [address] | | | | | [phone] | [phone] | | | | | | | [...] | | | | | [place] [address] | | | | | | [phone] | | | | | | | | +--------+---------+ + + + | 12/20/ | Office | Audiology | Elisabet Munson MS | | | 2019 | Visit | | [facility] [address] | | | | | | [place] [address] [place] | | | | | | [place] [address] | | | | | | [phone] | | | | | | | | +--------+---------+ + + + | 12/20/ | Office | Otolaryngology | Ulysses Genao MD | | | 2020 | Visit | | [address] | | | | | | [address] [place], | | | | | | [place] [address] | | | | | | [phone] | | | | | | | | +--------+---------+ + + + documented as of this encounter Visit Diagnoses Not on filedocumented in this encounter"
--- OUTSIDE RECORDS SUMMARY | ~2019-10-17 | XMS | Encounter Summary ---
Demographics + + + | Address | [address] | | | [place] [address] | + + + | Home Phone [...] Team Providers + +------+ + | Care Atomizer Assembler Name | Role | Phone | [...]
--- OUTSIDE RECORDS SUMMARY | ~2019-10-17 | XMS | Encounter Summary ---
Demographics + + + | Address | [address] | | | [place] [address] | + + + | Home Phone [...] Providers + +------+ + | Care Certified Ophthalmic Medical Technician Name | Role | Phone | [...] of this encounter Progress Notes Interface, Glass Production Machine Operator In - 09/13/2005 2:06 AM PST [id number] [facility] Date: 01/02/2005 Clinic: Endocrinology [...] months. Beto Meeks M.D. PD / HS [id number] / [id number] / [id number] / [id number] cc: Chris Padgett M.D. Electronically signed by Beto Meeks 09-12-2005 02:22:56 AM documented i n this encounter Plan of Treatment Not on filedocumented as of this encounter Visit Diagnoses Not on filedocumented in this encounter"
--- OUTSIDE RECORDS SUMMARY | ~2019-10-17 | XMS | Encounter Summary ---
Demographics + + + | Address | [address] | | | [place] [address] | + + + | Home Phone [...] Providers + +------+ + | Care Financial Report Service Sales Agent Name | Role | Phone [...] | | | | Clinical Nutrition | [place], [place] | | | | | [address] | [address] | | | | | Loop Mailcode: OPC5 | [phone] | | | | | Outpatient Clinic | | | | | | [facility], | | | | | | [place] [address] | | | | | | [phone] | | | +--------+ + + + [...]
--- OUTSIDE RECORDS SUMMARY | ~2019-10-17 | XMS | Encounter Summary ---
Demographics + + + | Address | [address] | | | [place] [address] | + + + | Home Phone [...] Providers + +------+ + | Care Technical Instructor Course Developer Name | Role | Phone | [...] + + | 09/15/ | Office | [facility] | Emmy-Tajti, | Pain in right lower | | 2019 | Visit | MEDICINE [address] | MD Petrona | leg (Primary Dx); | | | | [address] [place] | [address] [facility] | Fall in bathtub, | | | | [place] [address] | [place] [address] | initial encounter; | | | | [phone] | [phone] | Other osteoporosis | | | | [...] Procedure: COLONOSCOPY; Surgeon: Luther Brito MD; Location: [facility] DILATION AND CURETTAGE OF UTERUS ELBOW SURGERY FINGER TRIGGER RELEASE 2002 FINGER TRIGGER RELEASE 2009 GASTRIC BYPASS SURGERY 2004 HYSTERECTOMY 05/14/1980 JOINT REPLACEMENT Bilateral 2007 2008 KNEE ARTHROSCOPY 2005 LAPAROSCOPY 01/27/2015 LAPAROTOMY 2008 ROTATOR CUFF REPAIR 2005 SPINE SURGERY TONSILLECTOMY 1964 UPPER GASTROINTESTINAL ENDOSCOPY N/A 12/18/2017 Procedure: EGD; Surgeon: Luther Brito MD; Location: [facility]ICAL PROC[facility]URE [facility] CURRENT MEDICATIONS Current Outpatient [...] (See Comments) Confused and questionable for seizures Tepvzyupgw-Nbdj-Tdpwxeme Hives and Rash Cephalexin Hives Ciprofloxacin Hives [...] Note: Parts of this documentwere created using Availigent speech recognition software. As a r esult, [...] | | | | | [place] [address] | | | | | | [phone] | | | | | | | | +--------+---------+ + + + | 12/20/ | Office | Audiology | Elisabet Munson MS | | 2019 | Visit | | [facility] [address] | | | | | | [address] [place] | | | | | | [place] [address] | | | | | | [phone] | | | | | | | | +--------+---------+ + + + | 12/20/ | Office | Otolaryngology | Ulysses Genao MD | | | 2019 | Visit | | [address] | | | | | | [address] [place], | | | | | | [place] [address] | | | | | | [phone] | | | | | | | [...]
--- OUTSIDE RECORDS SUMMARY | ~2019-10-17 | XMS | Encounter Summary ---
Demographics + + + | Address | [address] | | | [place] [address] | + + + | Home Phone [...] Providers + +------+ + | Care Surgical Supervisor Name | Role | Phone | [...] + + | 12/21/ | Office | [facility] | Ines Molinaanne, | Left Knee [...] Hip | | | | [facility] | | Region Pain; | | | | and Healing, | | Spondylosis with | | | | Building | | Myelopathy, Lumbar | | | | Floor [place], [place] | | Region; Herniated | | | | [address] | | Lumbar | | | | [phone] | | Intervertebral Disc | | | | | | L4-5; Fibromyalgia | | | | | | syndrome 729.1; | | | | | | Opioid Dependence, | | | | | | Continuous ([facility]); | | | | | | Major Depressive | | | | | | Disorder, Recurrent | | | | | | Episode, Moderate | | | | | | ([facility]); Adjustment | | | [...] Belinda Meehan is a 46 y.o. female [facility] Return Visit Chief Complaint: [...] Simons. We reviewed materials risk notice and [facility] opioid agreement. A ll questions were [...] management and reduce opioid need. DELFINA MOLINA [facility] Mail code CH 4P [facility] [address] [facility] [address] Ailyn Foster 12/22/19 12:51 PM [...] | + + | Opioid dependence, continuous ([facility]) Opioid type dependence, continuous [...]
--- OUTSIDE RECORDS SUMMARY | ~2019-10-17 | XMS | Encounter Summary ---
Demographics + + + | Address | [address] | | | [place] [address] | + + + | Home Phone [...] + +------+ + | Care Physical Therapy Assistant Name | Role | [...] [facility] | | | | | | [address] | | | | | | Mailcode: CH15P | | | | | | [facility] | | | | | | and Healing, | | | | | | Building | | | | | | Floor [place], [place] | | | | | | [address] | | | | | | [phone] | | | +--------+ + + + [...]
--- OUTSIDE RECORDS SUMMARY | ~2019-10-17 | XMS | Encounter Summary ---
Demographics + + + | Address | [address] | | | [place] [address] | + + + | Home Phone [...] + + | 03/05/ | Telephone | [facility] | Alanis, | Other | | 2018 | | MEDICINE [address] [place] [address] | MD Petrona | | | | | [facility] | [address] [place] [address] | | | | | [place] [address] | [place] [address] | | | | | [phone] | [phone] | | | | | | | [...] | [facility] [address] [place] | | | | | | [place] [address] | | | | | | [phone] | | | | | | | | +--------+---------+ + + + | 12/20/ | Office | Audiology | Elisabet Munson MS | | | 2019 | Visit | | [facility] [address] | | | | | | [place] [address] [address] | | | | | | [place] [address] | | | | | | [phone] | | | | | | | | +--------+---------+ + + + | 12/20/ | Office | Otolaryngology | Ulysses Genao MD | | | 2020 | Visit | | [address] [facility] | | | | | | [address] [place], | | | | | | [place] [address] | | | | | | [phone] | | | | | | | | +--------+---------+ + + + documented as of this encounter Visit Diagnoses + + | Diagnosis | + + | Non-intractable vomiting with nausea, unspecified vomiting type - Primary | + + documented in this encounter"
--- OUTSIDE RECORDS SUMMARY | ~2019-10-17 | XMS | Encounter Summary ---
Demographics + + + | Address | [address] | | | [place] [address] | + + + | Home Phone [...] Providers + +------+ + | Care Global Sourcing Manager Name | Role | Phone [...] + | 08/20/ | Telephone | [facility] | Alanis, | Other | | 2018 | | MEDICINE [address] [place] [address] | MD Petrona | | | | | [facility] | [address] [place] [address] | | | | | [place] [address] | [place] [address] | | | | | [phone] | [phone] | | | | | | | [...] Petrona | | | | | | [facility] [address] [place] | | | | | | [place] [address] | | | | | | [phone] | | | | | | | | +--------+---------+ + + + | 12/20/ | Office | Audiology | Elisabet Munson MS | | | 2019 | Visit | | [facility] [address] | | | | | | [place] [address] [address] | | | | | | [place] [address] | | | | | | [phone] | | | | | | | | +--------+---------+ + + + | 12/20/ | Office | Otolaryngology | Ulysses Gneao MD | | | 2019 | Visit | | [address] [facility] | | | | | | [address] [place], | | | | | | [place] [address] | | | | | | [phone] | | | | | | | | +--------+---------+ + + + documented as of this encounter Visit Diagnoses Not on filedocumented in this encounter"
--- OUTSIDE RECORDS SUMMARY | ~2019-10-17 | XMS | Encounter Summary ---
Demographics + + + | Address | [address] | | | [place] [address] | + + + | Home Phone [...] Providers + +------+ + | Care Senior Cobol Developer Name | Role | Phone | [...] | | | | [address] [facility] | [place], [place] | | | | | [address] | [address] | | | | | [place], [place] | [phone] | | | | | [address] | | | | | | [phone] | | | +--------+ + + + [...]
--- OUTSIDE RECORDS SUMMARY | ~2019-10-17 | XMS | Encounter Summary ---
Demographics + + + | Address | [address] | | | [place] [address] | + + + | Home Phone [...] Team Providers + +------+ + | Care Shearing Machine Tender Name | Role | Phone | + +------+ + PCP | Unavailable | + +------+ + Encounter Details +--------+ + + + + | Date | Type | Department | Care Team | Description | +--------+ + + + + | 07/24/ | Office | Hematology | Forrest, | | | 2005 | Visit-ECX | Oncology [address] | MD Lukaz[address] | | | | | [address] | Mychal Burger | | | | | Mailcode: PV240 | [place] [address] | | | | | [facility] | [phone] | | | | | [place], [place] | | | | | | [address] | | | | | | [phone] | | | +--------+ + + + [...]
--- OUTSIDE RECORDS SUMMARY | ~2019-10-17 | XMS | Encounter Summary ---
Demographics + + + | Address | [address] | | | [place] [address] | + + + | Home Phone [...] Team Providers + +------+ + | Care Facialist Name | Role | Phone | + [...] + | 05/01/ | Refill | [facility] | Alanis, | Medication Refill | | 2017 | | MEDICINE [address] [place] [address] | MD Petrona | | | | | [facility] | [address] [place] [address] | | | | | [place] [address] | [place] [address] | | | | | [phone] | [phone] | | | | | | | [...] | | | | | [place] [address] | | | | | | [phone] | | | | | | | | +--------+---------+ + + + | 12/20/ | Office | Audiology | Elisabet Munson MS | | | 2019 | Visit | | [facility] [address] | | | | | | [place] [address] [place] | | | | | | [place] [address] | | | | | | [phone] | | | | | | | | +--------+---------+ + + + | 12/20/ | Office | Otolaryngology | Ulysses Genao MD | | | 2020 | Visit | | [address] [facility] | | | | | | [address] [place], | | | | | | [place] [address] | | | | | | [phone] | | | | | | | | +--------+---------+ + + + documented as of this encounter Visit Diagnoses Not on filedocumented in this encounter"
--- OUTSIDE RECORDS SUMMARY | ~2019-10-17 | XMS | Encounter Summary ---
[...] Providers + +------+ + | Care Veterans Services Specialist Name | Role | Phone [...] + + | 08/17/ | Telephone | [facility] | Alanis, | Other | | 2020 | | MEDICINE [address] [place] [address] | MD Petrona | | | | | [facility] | [address] [place] [address] | | | | | [place] [address] | [place] [address] | | | | | [phone] | [phone] | | | | | | | [...] Petrona | | | | | | [facility] [address] | | | | | | [place] [address] | | | | | | [phone] | | | | | | | | +--------+---------+ + + + | 12/20/ | Office | Audiology | Elisabet Munson MS | | | 2019 | Visit | | [facility] [address] | | | | | | [place] [address] [address] | | | | | | [place] [address] | | | | | | [phone] | | | | | | | | +--------+---------+ + + + | 12/20/ | Office | Otolaryngology | Ulysses Genao MD | | | 2019 | Visit | | [address] [facility] | | | | | | [address] [place], | | | | | | [place] [address] | | | | | | [phone] | | | | | | | | +--------+---------+ + + + documented as of this encounter Visit Diagnoses Not on filedocumented in this encounter"
--- OUTSIDE RECORDS SUMMARY | ~2019-10-17 | XMS | Encounter Summary ---
Demographics + + + | Address | [address] | | | [place] [address] | + + + | Home Phone [...] [id number] | | | | | | [place], [place] | | | | | | [address] | | | | | | [phone] | | | +--------+ + + + [...]
--- OUTSIDE RECORDS SUMMARY | ~2019-10-17 | XMS | Encounter Summary ---
Demographics + + + | Address | [address] | | | [place] [address] | + + + | Home Phone [...] | | 2005 | | Center at [facility] [address] | | endoscopy procedure | | | | [address] | | | | | | Mailcode: [place] | | | | | | [facility] and | | | | | | [place] [address] | | | | | | [place], [place] | | | | | | [address] | | | | | | [phone] | | | +--------+ + + + [...] en doscopy in the Gastroenterology Clinic at [facility], see transcri bed report. Earnest Ward documented in this encount er Plan of Treatment + + +--------+ + + | Name | Type | Priori | Associated Diagnoses | Order Schedule | | | | ty | | | + + +--------+ + + | MS GI TRACT IMAGING, | Procedures | Routin [...]
--- OUTSIDE RECORDS SUMMARY | ~2019-10-17 | XMS | Encounter Summary ---
Demographics + + + | Address | [address] | | | [place] [address] | + + + | Home Phone [...] + +------+ + | Care Production Control Coordinating Clerk Name | Role | Phone | [...] + + | 09/13/ | Telephone | [facility] | Alanis, | Appointment | | 2019 | | MEDICINE [address] [place] [address] | MD Petrona | | | | | [facility] | [address] [place] [address] | | | | | [place] [address] | [place] [address] | | | | | [phone] | [phone] | | | | | | | [...] | | | | | [place] [address] | | | | | | [phone] | | | | | | | | +--------+---------+ + + + | 12/20/ | Office | Audiology | Elisabet Munson MS | | | 2020 | Visit | | [facility] [address] | | | | | | [place] [address] [place] | | | | | | [place] [address] | | | | | | [phone] | | | | | | | | +--------+---------+ + + + | 12/20/ | Office | Otolaryngology | Ulysses Genao MD | | | 2020 | Visit | | [address] | | | | | | [address] [place], | | | | | | [place] [address] | | | | | | [phone] | | | | | | | | +--------+---------+ + + + documented as of this encounter Visit Diagnoses Not on filedocumented in this encounter"
--- OUTSIDE RECORDS SUMMARY | ~2019-10-17 | XMS | Encounter Summary ---
Demographics + + + | Address | [address] | | | [place] [address] | + + + | Home Phone [...] Providers + +------+ + | Care Auto Mechanics Instructor Name | Role | Phone | [...] | Epigastric | T, ANP | [address] | | | | | pain Status | [place], [place] | [address] | | | | | post | [address] | [place] | | | | | bariatric | | [place], 4th | | | | | surgery | | floor | | | | | Procedures | | [place], [place] | | | | | CONSULT TO | | [address] | | | | | GI PROCEDURE | | Phone: | | | | | UNIT: EGD | | [phone] | | | | | | | Fax: | | | | | | | [phone] | +--------+--------+ + + + + Reason [...] | | | | | | Rd [place], | | | | | | | [place] | | | | | | | [address] | | | | | | | Phone: | | | | | | | [phone] | | | | | | | Fax: | | | | | | | [phone] | +--------+--------+ + + + + Encounter Details +--------+---------+ + + + | Date | Type | Department | Care Team | Description | +--------+---------+ + + + | 08/28/ | Office | Digestive Health | Chris Padgett, | Epigastric Pain | | 2008 | Visit | [place] [address] | [address] | (Primary Dx); Status | | | | Ave Mailcode: CH4S | [facility] [address] | Post Bariatric | | | | [facility] | [place], [place] | Surgery | | | | and Healing, | [address] | | | | | | [phone] | | | | | [place], [place] | | | | | | [address] | | | | | | [phone] | | | +--------+---------+ + + + [...] + + +--------+ + + | [place] UPPER GI | Procedures | Routin | [...] Performed At | + + + | [id number] Estimated GFR > 60 mL/min/1.73 sq m if non- | [facility] | | Albanian [id number] Estimated GFR > 60 mL/min/1.73 sq m if | DEPARTMENT OF | | [place]ian GFR is estimated using the MDRD equation [...] + + | [facility] | [address] | [place] [address] | | | PATHOLOGY | [address] | | | + + + + + | [facility] | [address] | [place] [address] | | | PATHOLOGY | [address] | | | + + + + + documented in this encounter Visit Diagnoses + + | Diagnosis | + + | Epigastric pain - Primary Abdominal pain, epigastric | + + | Status post bariatric surgery Bariatric surgery status | + + documented in this encounter"
--- OUTSIDE RECORDS SUMMARY | ~2019-10-17 | XMS | Encounter Summary ---
[...] Providers + +------+ + | Care Top Installer Name | Role | Phone | [...] Mychal Kovacs | | | | | [facility] | [place], [place] | | | | | [address] | [address] | | | | | [address] | [phone] | | | | | [facility] | | | | | | Physician's | | | | | | Pavilion [place], | | | | | | [place] [address] | | | | | | [phone] | | | +--------+--------+ + + + [...]
--- OUTSIDE RECORDS SUMMARY | ~2019-10-17 | XMS | Encounter Summary ---
Demographics + + + | Address | [address] | | | [place] [address] | + + + | Home Phone [...] Team Providers + +------+ + | Care Booth Operator Name | Role | Phone | + +------+ + | Sulaiman Carrera MD | PCP | | + +------+ + Encounter Details +--------+ + + + + | Date | Type | Department | Care Team | Description | +--------+ + + + + | 09/18/ | Ancillary | Registration [id number] | Chris Padgett, | | | 2005 | Registratio | [address] | [address] | | | | n | [place] Mailcode: RPB07 | [address] | | | | | [place], [place] | [place], [place] | | | | | [address] | [address] | | | | | [phone] | [phone] | | | | | | | [...]
--- OUTSIDE RECORDS SUMMARY | ~2019-10-17 | XMS | Encounter Summary ---
Demographics + + + | Address | [address] | | | [place] [address] | + + + | Home Phone [...] Providers + +------+ + | Care Womens Health Nurse Practitioner Name | Role | Phone [...] | | | [facility] | [place], [place] | | | | | [address] | [address] | | | | | [address] | [phone] | | | | | Physician's | | | | | | Pavilion, 1st floor | | | | | | [place], [place] | | | | | | [address] | | | | | | [phone] | | | +--------+ + + + [...]
--- OUTSIDE RECORDS SUMMARY | ~2019-10-17 | XMS | Encounter Summary ---
Demographics + + + | Address | [address] | | | [place] [address] [...] Team Providers + +------+ + | Care Solder Making Laborer Name | Role | Phone | [...] + | 11/22/ | Refill | [facility] | Alanis, | Medication Refill | | 2018 | | MEDICINE [address] [place] [address] | MD Petrona | | | | | [facility] | [address] [place] [address] | | | | | [place] [address] | [place] [address] | | | | | [phone] | [phone] | | | | | | | [...] | | | | | [place] [address] | | | | | | [phone] | | | | | | | | +--------+---------+ + + + | 12/20/ | Office | Audiology | Elisabet Munson MS | | | 2019 | Visit | | [facility] [address] | | | | | | [place] [address] [place] | | | | | | [place] [address] | | | | | | [phone] | | | | | | | | +--------+---------+ + + + | 12/20/ | Office | Otolaryngology | Ulysses Genao MD | | | 2020 | Visit | | [address] [facility] | | | | | | [address] [place], | | | | | | [place] [address] | | | | | | [phone] | | | | | | | | +--------+---------+ + + + documented as of this encounter Visit Diagnoses Not on filedocumented in this encounter"
--- OUTSIDE RECORDS SUMMARY | ~2019-10-17 | XMS | Encounter Summary ---
Demographics + + + | Address | [address] | | | [place] [address] | + + + | Home Phone [...] Providers + +------+ + | Care Manager Floor Name | Role | Phone | [...] + | 09/04/ | Refill | [facility] | Alanis, | Medication Refill | | 2018 | | MEDICINE [address] [place] [address] | MD Petrona | | | | | [facility] | [address] [place] [address] | | | | | [place] [address] | [place] [address] | | | | | [phone] | [phone] | | | | | | | [...] | | | | | [place] [address] | | | | | | [phone] | | | | | | | | +--------+---------+ + + + | 12/20/ | Office | Audiology | Elisabet Munson MS | | | 2019 | Visit | | [facility] [address] | | | | | | [place] [address] [place] | | | | | | [place] [address] | | | | | | [phone] | | | | | | | | +--------+---------+ + + + | 12/20/ | Office | Otolaryngology | Ulysses Genoa MD | | | 2020 | Visit | | [address] [facility] | | | | | | [address] [place], | | | | | | [place] [address] | | | | | | [phone] | | | | | | | | +--------+---------+ + + + documented as of this encounter Visit Diagnoses Not on filedocumented in this encounter"
--- OUTSIDE RECORDS SUMMARY | ~2019-10-17 | XMS | Encounter Summary ---
Demographics + + + | Address | [address] | | | [place] [address] | + + + | Home Phone [...] Team Providers + +------+ + | Care Chancery Clerk Name | Role | Phone | [...] | | | | L[facility] Physician's | [place], [place] | | | | | [address] | [address] | | | | | [place], [place] | [phone] | | | | | [address] | | | | | | [phone] | | | +--------+ + + + [...]
--- OUTSIDE RECORDS SUMMARY | ~2019-10-17 | XMS | Encounter Summary ---
Demographics + + + | Address | [address] | | | [place] [address] | + + + | Home Phone [...] Providers + +------+ + | Care Net Development Manager Name | Role | Phone [...] + + | 04/08/ | [facility] | [facility] | Alanis, | Pressure injury of | | 2018 | Visit | MEDICINE [address] | MD Petrona | right buttock, stage | | | | [facility] | [address] [place] [address] | 1 (Primary Dx); OLIVER | | | | [place] [address] | [place] [address] | (obstructive sleep | | | | [phone] | [phone] | apnea); Lower leg | | | [...] (See Comments) Confused and questionable for seizures Kzpagnkcxf-Egrk-Hlowmcas Hives and Rash Cephalexin Hives Ciprofloxacin Hives [...] like to check with a provider [place] which [place] for [...] Note: Parts of this documentwere created using Familonet speech recognition software. As a r esult, [...] | | | | | [place] [address] | | | | | | [phone] | | | | | | | | +--------+---------+ + + + | 12/20/ | Office | Audiology | Elisabet Munson MS | | | 2019 | Visit | | [facility] [address] | | | | | | [address] [place] | | | | | | [place] [address] | | | | | | [phone] | | | | | | | | +--------+---------+ + + + | 12/20/ | Office | Otolaryngology | Ulysses Genao MD | | | 2019 | Visit | | [address] | | | | | | [address] [place], | | | | | | [place] [address] | | | | | | [phone] | | | | | | | [...]
--- OUTSIDE RECORDS SUMMARY | ~2019-10-17 | XMS | Encounter Summary ---
Demographics + + + | Address | [address] | | | [place] [address] | + + + | Home Phone [...] Providers + +------+ + | Care Software Solutions Architect Name | Role | Phone [...] as of this encounter Progress Notes Interface, Strap Setter In - 01/12/2005 9:13 AM PDT [id number] [facility] Date: 04/10/2004 Clinic: Rheumatology [...] 3 months. Caitlin Rivera M.S., F.N.P. / [id number] / [id number] / [id number] / cc: Pedrito Gutierrez M.D. [address] [facility] [place] [address] documented i n this encounter Plan of Treatment Not on filedocumented as of this encounter Visit Diagnoses Not on filedocumented in this encounter"
--- OUTSIDE RECORDS SUMMARY | ~2019-10-17 | XMS | Encounter Summary ---
Demographics + + + | Address | [address] | | | [place] [address] | + + + | Home Phone [...] + +------+ + | Care Industrial Engineering Technologist Name | Role | Phone [...] + | 08/16/ | Refill | [facility] | Alanis, | Medication Refill | | 2019 | | MEDICINE [address] | MD Petrona | | | | | [facility] | [address] [place] [address] | | | | | [place] [address] | [place] [address] | | | | | [phone] | [phone] | | | | | | | [...] | | | | | [place] [address] | | | | | | [phone] | | | | | | | | +--------+---------+ + + + | 12/20/ | Office | Audiology | Elisabet Munson MS | | | 2019 | Visit | | [facility] [address] | | | | | | [place] [address] [place] | | | | | | [place] [address] | | | | | | [phone] | | | | | | | | +--------+---------+ + + + | 12/20/ | Office | Otolaryngology | Ulysses Genao MD | | | 2020 | Visit | | [address] [facility] | | | | | | [address] [place], | | | | | | [place] [address] | | | | | | [phone] | | | | | | | | +--------+---------+ + + + documented as of this encounter Visit Diagnoses Not on filedocumented in this encounter"
--- OUTSIDE RECORDS SUMMARY | ~2019-10-17 | XMS | Encounter Summary ---
Demographics + + + | Address | [address] | | | [place] [address] | + + + | Home Phone [...] Team Providers + +------+ + | Care Commissioned Sales Associate Name | Role | Phone [...] + + | 01/05/ | Telephone | [facility] | Luther Brito MD | Results | | 2018 | | GASTROENTEROLOGY | [address] [facility] | | | | | [address] [facility] | [place], [place] | | | | | [address] [place], [place] | [address] | | | | | [address] | [phone] | | | | | [phone] | | | +--------+ + + + [...] | | | [facility] [address] [place] | | | | | | [place] [address] | | | | | | [phone] | | | | | | | | +--------+---------+ + + + | 12/20/ | Office | Audiology | Elisabet Munson MS | | | 2019 | Visit | | [facility] [address] | | | | | | [place] [address] [place] | | | | | | [place] [address] | | | | | | [phone] | | | | | | | | +--------+---------+ + + + | 12/20/ | Office | Otolaryngology | Ulysses Genao MD | | | 2019 | Visit | | [address] [facility] | | | | | | [address] [place], | | | | | | [place] [address] | | | | | | [phone] | | | | | | | | +--------+---------+ + + + documented as of this encounter Visit Diagnoses Not on filedocumented in this encounter"
--- OUTSIDE RECORDS SUMMARY | ~2019-10-17 | XMS | Encounter Summary ---
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 1960 Start of Care: 06/23/2006 Referring Provider: [...] her today. Patient has multiple appts. At [facility] today, including a f/u regarding her connelly [...] + + +--------+ + + | HI MANUAL THER | Procedures | Routin | [...] + + +--------+ + + | HI THERAPEUTIC | Procedures | Routin | Cervical [...]
--- OUTSIDE RECORDS SUMMARY | ~2019-10-17 | XMS | Encounter Summary ---
Demographics + + + | Address | [address] | | | [place] [address] | + + + | Home Phone [...] Providers + +------+ + | Care Launch Commander [employer] Name | Role | Phone | + [...] | | Osteoporosis | i, | [address] | | | | | , | Petrona | [place], | | | | | unspecified | , MD [address] | [place] [address] | | | | | osteoporosis | [address] | Phone: | | | | | type, | [place], | [phone] | | | | | unspecified | [place] | Fax: | | | | | pathological | [address] | [phone] | | | | | fracture | Phone: | | | | | | presence | [phone] | | | | | | Procedures | Fax: | | | | | | [place] | [phone] | | | | | | ZOLEDRONIC | | | | | | | ACID 1MG | | | +--------+ + + + + + Encounter Details +--------+ + + + + | Date | Type | Department | Care Team | Description | +--------+ + + + + | 07/20/ | Orders Only | [facility] | Alanis, | Osteoporosis, | | 2018 | | MEDICINE [address] [place] [address] | MD Petrona | unspecified | | | | [facility] | [address] [place] [address] | osteoporosis type, | | | | [place] [address] | [place] [address] | unspecified | | | | [phone] | [phone] | pathological | | | | | [...] | | | | | [place] [address] | | | | | | [phone] | | | | | | | | +--------+---------+ + + + | 12/20/ | Office | Audiology | Elisabet Munson MS | | 2019 | Visit | | [address] | | | | | | [address] [place] [address] [place] | | | | | | [place] [address] | | | | | | [phone] | | | | | | | | +--------+---------+ + + + | 12/20/ | Office | Otolaryngology | Ulysses Genao MD | | | 2020 | Visit | | [address] [facility] | | | | | | [address] [place], | | | | | | [place] [address] | | | | | | [phone] | | | | | | | [...]
--- OUTSIDE RECORDS SUMMARY | ~2019-10-17 | XMS | Encounter Summary ---
[...] Providers + +------+ + | Care Salesperson [employer] Name | Role | Phone | [...] + + | 09/03/ | Telephone | [facility] | Alanis, | Fall; Hip Pain | | 2018 | | MEDICINE [address] [place] [address] | MD Petrona | | | | | [facility] | [address] [place] [address] | | | | | [place] [address] | [place] [address] | | | | | [phone] | [phone] | | | | | | | [...] | | | | | [place] [address] | | | | | | [phone] | | | | | | | | +--------+---------+ + + + | 12/20/ | Office | Audiology | Elisabet Munson MS | | | 2019 | Visit | | [facility] [address] | | | | | | [place] [address] [place] | | | | | | [place] [address] | | | | | | [phone] | | | | | | | | +--------+---------+ + + + | 12/20/ | Office | Otolaryngology | Ulysses Genao MD | | | 2020 | Visit | | [address] [facility] | | | | | | [address] [place], | | | | | | [place] [address] | | | | | | [phone] | | | | | | | | +--------+---------+ + + + documented as of this encounter Visit Diagnoses Not on filedocumented in this encounter"
--- OUTSIDE RECORDS SUMMARY | ~2019-10-17 | XMS | Encounter Summary ---
Demographics + + + | Address | [address] | | | [place] [address] | + + + | Home Phone [...] | Procedures | [address] | [place] | | | | | CONSULT TO | [address] | [address] | | | | | GI PROCEDURE | Rd | floor | | | | | UNIT: EGD | [place], [place] | [place], [place] | | | | | | [address] | [address] | | | | | | Phone: | Phone: | | | | | | [phone] | [phone] | | | | | | | Fax: | | | | | | | [phone] | +--------+--------+ + + + + Consultation [...] | | | | | UNIT: | [place], [place] | [place], [place] | | | | | COLONOSCOPY | [address] | [address] | | | | | | Phone: | Phone: | | | | | | [phone] | [phone] | | | | | | | Fax: | | | | | | | [phone] | +--------+--------+ + + + + Reason [...] + + | 03/10/ | Office | [facility] Division of | Carlos Arreola, | Chronic Abdominal | | 2005 | Visit | Gastroenterology/Hep | MD [address] | Pain; Iron | | | | atology [address] | Deficiency | | | | [address] | [place] [address] | | | | | Mailcode: PV310 | [phone] | | | | | Physician[facility] Pavilion | | | | | | [address] | | | | | | [place], [place] | | | | | | [address] | | | | | | [phone] | | | +--------+---------+ + + + [...] so by calling and asking for my design assistant Cierra Alexis. I always do my [...] other questions or issues. Carlos Arreola MD. 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 Lost 200lbs psot bypass surgery, has [...] + + + | [facility] | [address] | [place] [address] | | | PATHOLOGY | [address] | | | + + + + + | [facility] | [address] | [place] [address] | | | PATHOLOGY | [address] [...] + + + | [facility] | [address] [facility] | [place] [address] | | | PATHOLOGY | [address] | | | + + + + + | [facility] | [address] [facility] | [place] [address] | | | PATHOLOGY | [address] [...] [facility] DEPARTMENT OF | [address] | [place] [address] | | | PATHOLOGY | [address] | | | + + + + + | [facility] | [facility] [address] | [place] [address] | | | PATHOLOGY | [address] [...] DEPARTMENT OF | [address] | [place] [address] | | | PATHOLOGY | [address] | | | + + + + + | [facility] | [address] | [place] [address] | | | PATHOLOGY | [address] [...] pg/mL | | | | | [facility]. | | | | + + + + + + + + | Specimen | + + | | + + + + + + + | Performing | Address | City/State/Zipcode | Phone Number | | Organization | | | | + + + + + | [facility] | [address] | [place] [address] | | | LABORATORY | | | [...] | | | | | performed at [place] | | | | | | [facility] | | | | | | Laboratory | | | | + + + + + + + + | Specimen | + + | | + + + + + + + | Performing | Address | City/State/Zipcode | Phone Number | | Organization | | | | + + + + + | [facility] | [address] | [place] [address] | | | LABORATORY | | | | + + + + + documented in this encounter Visit Diagnoses + + | Diagnosis | + + | Chronic abdominal pain Abdominal pain, unspecified site | + + | Iron deficiency Other disorders of iron metabolism | + + documented in this encounter"
--- OUTSIDE RECORDS SUMMARY | ~2019-10-17 | XMS | Encounter Summary ---
Demographics + + + | Address | [address] | | | [place] [address] | + + + | Home Phone [...] | | | | [facility]ician's | [place], [place] | | | | | [address] | [address] | | | | | [place], [place] | [phone] | | | | | [address] | | | | | | [phone] | | | +--------+ + + + [...]
--- OUTSIDE RECORDS SUMMARY | ~2019-10-17 | XMS | Encounter Summary ---
Demographics + + + | Address | [address] | | | [place] [address] | + + + | Home Phone [...] Providers + +------+ + | Care Manager Intensive Care Name | Role | Phone | [...] | | Center at [facility] [address] | REGIONAL E[facility] MANAGER [address] | | | | | Sara Kov[address] | , [address] | | | | | Mailcode: Center | [place], [place] | | | | | [facility] and | [address] | | | | | Healing, Building [address] | [phone] | | | | | [place], [place] | | | | | | [address] | | | | | | [phone] | | | +--------+ + + + [...]
--- OUTSIDE RECORDS SUMMARY | ~2019-10-17 | XMS | Encounter Summary ---
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 I have [...] 4 months. Caitlin Rivera M.S., F.N.P. / [id number] / [id number] / [id number] / [id number] cc: Pedrito Gutierrez M.D. [address] [place], [place] [email or web address] signed by Interface, Research Archaeologist In at 01/12/2005 6:3 2 AM PDTdocumented in this encounter Plan of Treatment Not on filedocumented as of this encounter Visit Diagnoses Not on filedocumented in this encounter"
--- OUTSIDE RECORDS SUMMARY | ~2019-10-17 | XMS | Encounter Summary ---
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 1960 Start of Care: 06/23/2006 Referring Provider: [...] patient has increased her walking time at [employer] to 30-40 minutes daily, no t able [...] + + +--------+ + + | [facility] | Procedures | Routin | Spondylosis [...] + + +--------+ + + | [facility] | Procedures | Routin | Spondylosis [...]
--- OUTSIDE RECORDS SUMMARY | ~2019-10-17 | XMS | Encounter Summary ---
Demographics + + + | Address | [address] | | | [place] [address] | + + + | Home Phone [...] Team Providers + +------+ + | Care Clearance Rep Name | Role | Phone | [...] Pavilion | | | | | | [place], [place] | | | | | | [address] | | | | | | [phone] | | | +--------+---------+ + + + [...] take place on the hill at the [facility]: Surgeries scheduled in the [facility] ( [facility]): registration is located on the 4th floor of [facility] (Day Surgery). Surgeries scheduled in the [facility]: registration is located on the 9th floor. Surgeries scheduled in [facility]: registration is located on the 6th floor. Surgeries scheduled in the [facility]: registration is located i n the [facility] on the first floor. For surgeries scheduled to take place at the [facility]: registration is l [...] If you use specialized medical equipment at [facility], please check with your provider before [...]
--- OUTSIDE RECORDS SUMMARY | ~2019-10-17 | XMS | Encounter Summary ---
Demographics + + + | Address | [address] | | | [place] [address] | + + + | Home Phone [...] Providers + +------+ + | Care Outside Energy Sales Representatives Name | Role | Phone [...] as of this encounter Progress Notes Interface, Mechanical Technical Service Specialist In - 01/12/2005 8:09 AM PDTClinic Date: [...] months. Chris Padgett M.D. ROSA / SHARIF [id number] / [id number] / [id number] / Tdocumented in this encounter Plan of Treatment Not on filedocumented as of this encounter Visit Diagnoses Not on filedocumented in this encounter"
--- OUTSIDE RECORDS SUMMARY | ~2019-10-17 | XMS | Encounter Summary ---
Demographics + + + | Address | [address] | | | [place] [address] | + + + | Home Phone [...] at Physicians | [place], [place] | Bypass Surgery November | | | | [address] | [address] | 2003; | | | | [address] | [phone] | Hypothyroidism; | | | | [facility] | | Essential | | | | Physician's | | hypertension 401.9; | | | | [facility] [place], | | Iron Deficiency | | | | [place] [address] | | | | | | [phone] | | | +--------+---------+ + + + [...] 300 mg) by oral route once daily rgcdlrjzet-qvqwffumbmtgl-iwohksgr (FIORICET) 50-325-40 mg Oral Tablet take 2 [...]
--- OUTSIDE RECORDS SUMMARY | ~2019-10-17 | XMS | Encounter Summary ---
Demographics + + + | Address | [address] | | | [place] [address] | + + + | Home Phone [...] Providers + +------+ + | Care Classroom Instructor Name | Role | Phone | + +------+ + | Sulaiman Carrera MD | PCP | | + +------+ + Encounter Details +--------+ + + + + | Date | Type | Department | Care Team | Description | +--------+ + + + + | 03/19/ | Ancillary | Registration [id number] | | | | 2004 | Registratio | [address] | | | | | n | [place] Mailcode: [id number] | | | | | | [place], [place] | | | | | | [address] | | | | | | [phone] | | | +--------+ + + + [...]
--- OUTSIDE RECORDS SUMMARY | ~2019-10-17 | XMS | Encounter Summary ---
Demographics + + + | Address | [address] | | | [place] [address] | + + + | Home Phone [...] Providers + +------+ + | Care Employee Welfare Manager Name | Role | Phone | [...] + + | 01/25/ | Telephone | [facility] | Alanis, | Medical Problem | | 2017 | | MEDICINE [address] [place] [address] | MD Petrona | | | | | [facility] | [address] [place] [address] | | | | | [place] [address] | [place] [address] | | | | | [phone] | [phone] | | | | | | | [...] | | | | | [place] [address] | | | | | | [phone] | | | | | | | | +--------+---------+ + + + | 12/20/ | Office | Audiology | Elisabet Munson MS | | | 2019 | Visit | | [facility] [address] | | | | | | [place] [address] [place] | | | | | | [place] [id number] | | | | | | [phone] | | | | | | | | +--------+---------+ + + + | 12/20/ | Office | Otolaryngology | Ulysses Genao MD | | | 2020 | Visit | | [address] | | | | | | [address] [place], | | | | | | [place] [address] | | | | | | [phone] | | | | | | | | +--------+---------+ + + + documented as of this encounter Visit Diagnoses Not on filedocumented in this encounter"
--- OUTSIDE RECORDS SUMMARY | ~2019-10-17 | XMS | Encounter Summary ---
[...] Providers + +------+ + | Care Outpatient Dietitian Name | Role | Phone | [...] | | | | [facility] | [place], [place] | | | | | and [place], | [address] | | | | | [facility] , | [phone] | | | | | Floor [place], [place] | | | | | | [address] | | | | | | [phone] | | | +--------+ + + + [...]
--- OUTSIDE RECORDS SUMMARY | ~2019-10-17 | XMS | Encounter Summary ---
Demographics + + + | Address | [address] | | | [place] [address] [...] Providers + +------+ + | Care Framing Inspector Name | Role | Phone | [...] | | CONSULT TO | Rd | [address] | | | | | NEUROLOGY | [place], [place] | for Health | | | | | | [address] | and Healing, | | | | | | Phone: | Building 1, | | | | | | [phone] | [facility] Floor | | | | | | | [place], [place] | | | | | | | [address] | | | | | | | Phone: | | | | | | | [phone] | | | | | | | Fax: | | | | | | | [phone] | +--------+--------+ + + + + Reason [...] | | | [facility] | [place], [place] | Weak; | | | | [address] | [address] | Migraine Headache | | | | [address] | [phone] | | | | | [facility] | | | | | | Physician's | | | | | | Pavilion [place], | | | | | | [place] [address] | | | | | | [phone] | | | +--------+---------+ + + + [...] mg tablet once daily).Electronically signed by Edy Stepehns at 02/28 1:50 PM PDT documented in [...] (ciprofloxacin) Tramadol Morphine IM ( only in [place] [...] oral route once daily, Disp: , Rfl: iinqcqswgf-ddojgxtshxxcd-wexxaxup (FIORICET) 50-325-40 mg Oral Tablet, take 2 [...] LE edema Results for BELINDA MEEHAN Molly (ID#[id number]) as of 03/01/2008 9:22:28 PM Ref. Range [...] K/cu mm 220 Results for BELINDA MEEHAN (ID#[id number]) as of 03/01/2008 9:22:28 PM Ref. Range [...] continue to discuss with her options at [facility] with, hopefully, coordin ation of services. [...] + | [facility] | [facility] | [place] [address] | | | PATHOLOGY | [address] | | | + + + + + | [place] DEPARTMENT OF | [address] | [place] [address] | | | PATHOLOGY | [address] [...] Performed At | + + + | [id number] Estimated GFR > 60 mL/min/1.73 sq m if non- | [facility] | | [place] [id number] Estimated GFR > 60 mL/min/1.73 sq m if | DEPARTMENT OF | | [place] GFR is estimated using the MDRD [...] [facility] | [address] | [place] [address] | | | PATHOLOGY | [address] | | | + + + + + | [facility] | [address] | [place] [address] | | | PATHOLOGY | [address] [...] change effective | | | 04/05/07 [facility] ([facility]) | | | [facility] [address] [facility] | | | [place] [address] | | + + + + + + + + | Performing | Address | City/State/Zipcode | Phone Number | | Organization | | | | + + + + + | [facility] | [address] | [place] [address] | | | LABORATORY | | | [...] change effective | | | 04/05/07 [facility] ([facility]) | | | [facility] [place] [address] [address] [facility] | | | [place] [address] | | + + + + + + + + | Performing | Address | City/State/Zipcode | Phone Number | | Organization | | | | + + + + + | [facility] | [address] | [place] [address] | | | LABORATORY | | | [...]
--- OUTSIDE RECORDS SUMMARY | ~2019-10-17 | XMS | Encounter Summary ---
Demographics + + + | Address | [address] | | | [place] [address] | + + + | Home Phone [...] Providers + +------+ + | Care Dough Sheeter Name | Role | Phone | + [...] | | | | | Floor [place], [place] | | | | | | [address] | | | | | | [phone] | | | +--------+ + + + [...]
--- OUTSIDE RECORDS SUMMARY | ~2019-10-17 | XMS | Encounter Summary ---
Demographics + + + | Address | [address] | | | [place] [address] | + + + | Home Phone [...] Providers + +------+ + | Care Medical Laboratory Scientist Name | Role | Phone | [...] + + | 07/19/ | Telephone | [facility] | Alanis, | Lab Results | | 2019 | | MEDICINE [address] [place] [address] | MD Petrona | | | | | [facility] | [address] [place] [address] | | | | | [place] [address] | [place] [address] | | | | | [phone] | [phone] | | | | | | | [...] | | | | | [place] [address] | | | | | | [phone] | | | | | | | | +--------+---------+ + + + | 12/20/ | Office | Audiology | Elisabet Munson MS | | | 2020 | Visit | | [facility] [address] | | | | | [address] [place] [address] [place] | | | | | | [place] [address] | | | | | | [phone] | | | | | | | | +--------+---------+ + + + | 12/20/ | Office | Otolaryngology | Ulysses Genao MD | | | 2020 | Visit | | [address] [place] | | | | | | [address] [place], | | | | | | [place] [address] | | | | | | [phone] | | | | | | | | +--------+---------+ + + + documented as of this encounter Visit Diagnoses Not on filedocumented in this encounter"
--- OUTSIDE RECORDS SUMMARY | ~2019-10-17 | XMS | Encounter Summary ---
Demographics + + + | Address | [address] | | | [place] [address] | + + + | Home Phone [...] Providers + +------+ + | Care Graduate Internship Name | Role | Phone | [...] as of this encounter Discharge Summaries Interface, Power Wood Sawyer In - 01/12/2005 10:09 AM PDT [id number] GEOVANNI Barnes Admission Date: 12/06/2004 Discharge Date: [...] her incision looked clear, dry, and intact. Little Birch were in place. She had some moderate [...] Sree Carrillo M.D. Chris Padgett M.D. / [id number] / [id number] / [id number] / [id number] Electronically signed by Chris Padgett 12-31-2004 03:03:21 PM documented i n this encounter Plan of Treatment Not on filedocumented as of this encounter Visit Diagnoses Not on filedocumented in this encounter"
--- OUTSIDE RECORDS SUMMARY | ~2019-10-17 | XMS | Encounter Summary ---
Demographics + + + | Address | [address] | | | [place] [address] [...] Providers + +------+ + | Care Regulatory Process Manager Name | Role | Phone | [...] | | | | behavior of | [facility] | Orthopaedics | | | | | bone and | & Fractur | [address] | | | | | articular | [address] | [address] | | | | | cartilage | [address] | Rd | | | | | Procedures | [place], | [place], [place] | | | | | REQUEST TO | [place] [address] | [address] | | | | | SURGERY | Phone: | | | | | | SELF CONTAINED BEHAVIOR UNIT TEACHER | [phone] | | | | | | [place] BONE | Fax: | | | | | | BIOPSY,OPEN | [phone] | | | | | | DEEP [place] | | | | | | | EXCIS/CURET | | | | | | | BENIGN TUMR | | | | | | | CLAV/SCAPULA | | | | | | | [place] EXCIS | | | | | | | BENIGN TUMR | | | | | | | CLAV/SCAP,AU | | | | | | | TOGRFT [place] | | | | | | [...] | | | | | | | [facility] | Orthopaedics | | | | | | & Fractur | [address] | | | | | | [address] | Naeem Mcrae | | | | | | Nirav Kovacs | [place] | | | | | | [place], | [place], [place] | | | | | | [place] [address] | [address] | | | | | | Phone: | | | | | | | [phone] | | | | | | | Fax: | | | | | | | [phone] | | +--------+--------+ + + + + [...] | (Primary Dx) | | | | [place], [place] | | | | | | [address] | | | | | | [phone] | | | +--------+---------+ + + + [...] 08/2007 right knee Hx lumbar fusion 05/2008 L5-K0gsvtfw with bone spur removals Hx appendectomy Hx cholecystectomy Hx section Hx hysterectomy Gastric bypass Mayra Padgett wt 278 01/18 Paniculectomy Allergies: Allergies Allergen Reactions Keflex (Cephalexin) Sulfa (Sulfonamides) Codeine Penicillins Clindamycin Cipro (Ciprofloxacin) Tramadol Morphine IM ( only in [facility]) made gut pain worse 08/27/06: Trial of oral MSIR caused leg swelling Clarithromycin Hives Mainly in the legs Wjbjkrg-kxltmmwtyf-efy-caff Balance problems Amitriptyline Grand mal seizures Medications: [...] signs are noted as recorded by the Window Decorator. General: Alert, awake, and oriented x3. No [...] No: | | | | | | [id number] Name: | | | | | | BELINDA MEEHAN | | | | | | Birthday: 1960 | | | | | | Sex: F | | | | | | Alias:Patient Location: | | | | | | [id number]: Outpatient | | | | | | ActiveOrdering | | | | | | Physician: JOSÉ MIGUEL | | | | | | MARYSOL MORENO SCAPULA | | | | | | COMPLETE completed on | | | | | | 01/01/2009 11:55 | | | | | | AMAccession # | | | | | | [id number]:LEFT | | | | | | SCAPULA [...]
--- OUTSIDE RECORDS SUMMARY | ~2019-10-17 | XMS | Encounter Summary ---
Demographics + + + | Address | [address] | | | [place] [address] | + + + | Home Phone [...] Providers + +------+ + | Care Fire Chief Deputy Name | Role | Phone | + [...] + + | 08/10/ | Telephone | [facility] Comprehensive | Rosi Antonio, | Fall Ground Level | | 2013 | | Pain Center at | ANP | | | | | [facility] | | | | | | [address] | | | | | | Mailcode: CH15P | | | | | | [facility] | | | | | | and Healing, | | | | | | Building | | | | | | Floor [place], [place] | | | | | | [address] | | | | | | [phone] | | | +--------+ + + + [...]
--- OUTSIDE RECORDS SUMMARY | ~2019-10-17 | XMS | Encounter Summary ---
Demographics + + + | Address | [address] | | | [place] [address] | + + + | Home Phone [...] Providers + +------+ + | Care Fleet Coordinator Name | Role | Phone | + +------+ + | Sulaiman Carrera MD | PCP | | + +------+ + Encounter Details +--------+ + + + + | Date | Type | Department | Care Team | Description | +--------+ + + + + | 06/12/ | Telephone | [facility] | Chris Padgett, | | | 2008 | | [place] [address] | [address] [facility] | | | | | Bethanie Mailcode: CH4S | [address] | | | | | Center for [facility] | [place], [place] | | | | | and Healing, | [address] | | | | | [facility] 1, 6th | [phone] | | | | | Floor [place], [place] | | | | | | [address] | | | | | | [phone] | | | +--------+ + + + [...]
--- OUTSIDE RECORDS SUMMARY | ~2019-10-17 | XMS | Encounter Summary ---
Demographics + + + | Address | [address] | | | [place] [address] | + + + | Home Phone [...] as of this encounter Progress Notes Interface, Legal Librarian In - 01/12/2005 8:09 AM PDTClinic Date: [...] months. Chris Padgett M.D. ROSA / SHARIF [id number] / [id number] / [id number] / Tdocumented in this encounter Plan of Treatment Not on filedocumented as of this encounter Visit Diagnoses Not on filedocumented in this encounter"
--- OUTSIDE RECORDS SUMMARY | ~2019-10-17 | XMS | Encounter Summary ---
Demographics + + + | Address | [address] | | | [place] [address] | + + + | Home Phone [...] Providers + +------+ + | Care Supply Assistant Name | Role | Phone | [...] Rd | | | | | | [place], [place] | | | | | | [address] | | | +--------+ + + + [...]
--- OUTSIDE RECORDS SUMMARY | ~2019-10-17 | XMS | Encounter Summary ---
Demographics + + + | Address | [address] | | | [place] [address] | + + + | Home Phone [...] + +------+ + | Care Ground Water Contractor Name | Role | Phone | [...] [place] | | | | | | [address] | | | | | | [phone] | | | +--------+ + + + [...] | | | | | [place] [address] | | | | | | [phone] | | | | | | | | +--------+---------+ + + + | 12/20/ | Office | Audiology | Elisabet Munson MS | | | 2019 | Visit | | [facility] [address] | | | | | [address] [place] | | | | | | [place] [address] | | | | | | [phone] | | | | | | | | +--------+---------+ + + + | 12/20/ | Office | Otolaryngology | Ulysses Genao MD | | | 2019 | Visit | | [address] | | | | | | [address] [place], | | | | | | [place] [address] | | | | | | [phone] | | | | | | | | +--------+---------+ + + + documented as of this encounter Visit Diagnoses Not on filedocumented in this encounter"
--- OUTSIDE RECORDS SUMMARY | ~2019-10-17 | XMS | Encounter Summary ---
Demographics + + + | Address | [address] | | | [place] [address] | + + + | Home Phone [...] Providers + +------+ + | Care Airplane Refueler Name | Role | Phone | + [...] pain | | 2005 | | [place] [address] | | | | | | [address] | | | | | | Mailcode: [id number] | | | | | | Physician's Sharmila | | | | | | [place], [place] | | | | | | [address] | | | | | | [phone] | | | +--------+ + + + [...]
--- OUTSIDE RECORDS SUMMARY | ~2019-10-17 | XMS | Encounter Summary ---
Demographics + + + | Address | [address] | | | [place] [address] | + + + | Home Phone [...] Team Providers + +------+ + | Care Stunner And Shackler Name | Role | Phone | + [...] + | 09/06/ | Refill | [facility] | Alanis, | Medication Refill | | 2019 | | MEDICINE [address] | MD Petrona | | | | | [facility] | [address] [place] [address] | | | | | [place] [address] | [place] [address] | | | | | [phone] | [phone] | | | | | | | [...] | | | | | [place] [address] | | | | | | [phone] | | | | | | | | +--------+---------+ + + + | 12/20/ | Office | Audiology | Elisabet Munson MS | | | 2019 | Visit | | [facility] [address] | | | | | | [place] [address] [place] | | | | | | [place] [address] | | | | | | [phone] | | | | | | | | +--------+---------+ + + + | 12/20/ | Office | Otolaryngology | Ulysses Genao MD | | | 2020 | Visit | | [address] [facility] | | | | | | [address] [place], | | | | | | [place] [address] | | | | | | [phone] | | | | | | | | +--------+---------+ + + + documented as of this encounter Visit Diagnoses Not on filedocumented in this encounter"
--- OUTSIDE RECORDS SUMMARY | ~2019-10-17 | XMS | Encounter Summary ---
Demographics + + + | Address | [address] | | | [place] [address] | + + + | Home Phone [...] Providers + +------+ + | Care Camera Technician Name | Role | Phone | [...] | Pain | Diagnoses | Emmy | Clerical Adjudicator Chh1 | | | | Management | [...] | | | | | Meniere's | [address] | Building | | | | | disease, | Phone: | 1,15th Floor | | | | | bilateral | [phone] | [place], [place] | | | | | Rheumatoid | Fax: | [address] | | | | | arthritis, | [phone] | Phone: | | | | | unspecified | | [phone] | | | | | | | Fax: | | | | | Postlaminect | | [phone] | | | | | toya | [...] + + | 02/05/ | Office | [facility] Comprehensive | Shalonda Garcia, | Post laminectomy | | 2017 | Visit | Pain Center at | READING TEACHER [address] | syndrome (Primary | | | | [facility] | [place], [place] | Dx); Intractable | | | | [address] | [address] | chronic migraine | | | | Mailcode: CH15P | [phone] | without aura and | | | | [place] [facility] | | with status | | | | and Healing, | | migrainosus; | | | | | | Fibromyalgia | | | | Floor [place], [place] | | | | | | [address] | | | | | | [phone] | | | +--------+---------+ + + + [...] Discuss with your PCP, a referral to [facility] for discussion regarding spinal cord stimulator Shalonda Mustafa DNP, READING TEACHER-C Adult Pain Service [facility] [employer] [place] [address] documented in this encounter Progress Notes Amie Jing - 02/05/2017 1:35 PM PDT Date: 02/05/2017 was referred for pain management consultation by Sulaiman Whitlock MD [address] [place] [address] Reason for consult: cervical radiculopathy, low back [...] by her primary care pr magdy in [facility]. This provider is currently in the process of re-opening a new clinic and may be available to see patients next month. She reports that this provider d oes not wish to continue prescribing her pain medication and has instructed her to find anot her provided to take over her pain prescriptions. She was previously a patient at a pain cli brigida in [facility], however her insurance changed and she no longer has coverage at this clinic. 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 She feels she is at the point where is not able to determine which medications are hel pful in improving her pain. She endorses incontinence symptoms. She reports there are "days I just want to " because her pain is so bad. 's treatment for this pain complaint has included: MEDICATIONS: - Gabapentin - Lockwood - Butran - Cymbalta - Fentanyl Patches NON-MEDICATION THERAPIES: - Physical Therapy - Exercise - Heat/Ice - Pool Therapy - Brace/Support - TENS INTERVENTIONS: - Spinal surgery x3, Laminectomy unknown level - Epidural Steroid Injections - Trigger Point Injections lives in a single family home in [place], [place]. She is not currently working , she receives disability. As a result of her pain, notes multiple changes in her life, including limiting her ability to perform routine tasks. 's goals from today's appointment include: consultation only (advice only to you and your primary care physician), counseling, drug treatment, help in coping with the pain a nd stress management. SOIL FERTILITY SPECIALIST Brief Pain Inventory: (ten= worst possible pain [...] polyps COPD (chronic obstructive pulmonary disease) ([facility]) CVA (cerebral vascular accident) ([facility]) Fibromyalgia 07/25/2008 Craniocervical junction appears stenotic in cervical extension. Headache HTN (hypertension) Hypothyroidism 11/11/2006 IBS (irritable bowel syndrome) Internal hemorrhoid Kidney stone Major depressive disorder, recurrent episode, moderate ([facility]) 07/31/2006 Metabolic syndrome X 250.80 Metabolic syndrome X 250.80 Optic nerve hemorrhage left eye Other general symptoms Pneumonia PUD (peptic ulcer disease) RA (rheumatoid arthritis) ([facility]) Radiculitis, lumbosacral 03/03/2008 Reduced vision Scoliosis Sleep apnea Spondylosis with myelopathy, lumbar region 07/02/2006 Vertebral fracture T7,8,9 Xray T spine 2003 Past Surgical History Procedure Laterality Date Salpingo-oophorectomy Colonoscopy 03/2006 Tonsillectomy Pr d&c after delivery Pr inject trigger point, 1 or 2 Knee replacement 02/2007 Left knee Knee replacement 08/2007 right knee Lumbar fusion 05/2008, '11 & '12 L5-O9zucudy with bone spur removals Appendectomy Cholecystectomy section [...] Hives Mainly in the legs Clindamycin Codeine Tqmhuid-Zikogrxfll-Gcb-Caff Balance problems Fioricet W/Codeine [Sivyezzbfd-Ipifneyfwb-Zkj-Cod] Keflex [Cephalexin] Ketorolac Unknown Morphine IM ( only in [place] [...] and summary of old medical records (source: [employer]), as summarized in the body of the [...] by her primary care pr magdy in [facility]. She reports that this provider does [...] Whitlock MD may consider a referral to [facility] for discu ssion regarding spinal cord stimulator -No follow up needed at this time 02/05/2017: I, Kathleen Riley am functioning as a medical specialist for MEGAN Dutta DNP I have reviewed and verified the above scribed note of my visit with this patient as record ed by Kathleen Riley. Shalonda Mustafa DNP, FNP-C Adult Pain Service [facility] [address] [place] [address] Maris Costa MA - 02/05/2017 1:35 PM [...]
--- OUTSIDE RECORDS SUMMARY | ~2019-10-17 | XMS | Encounter Summary ---
Demographics + + + | Address | [address] | | | [place] [address] | + + + | Home Phone [...] Providers + +------+ + | Care Motor Route Carrier Name | Role | Phone | [...] issues) | | 2017 | | MEDICINE [address] [place] [address] | MD Petrona | | | | | [facility] | [address] [place] [address] | | | | | [place] [address] | [place] [address] | | | | | [phone] | [phone] | | | | | | | [...] | | | | | [place] [address] | | | | | | [phone] | | | | | | | | +--------+---------+ + + + | 12/20/ | Office | Audiology | Elisabet Munson MS | | | 2019 | Visit | | [facility] | | | | | | [address] [place] [address] [place] | | | | | | [place] [address] | | | | | | [phone] | | | | | | | | +--------+---------+ + + + | 12/20/ | Office | Otolaryngology | Ulysses Genao MD | | | 2020 | Visit | | [address] | | | | | | [address] [place], | | | | | | [place] [address] | | | | | | [phone] | | | | | | | | +--------+---------+ + + + documented as of this encounter Visit Diagnoses Not on filedocumented in this encounter"
--- OUTSIDE RECORDS SUMMARY | ~2019-10-17 | XMS | Encounter Summary ---
Demographics + + + | Address | [address] | | | [place] [address] | + + + | Home Phone [...] Providers + +------+ + | Care Education Program Manager Name | Role | Phone [...] + + | 07/28/ | Telephone | [facility] | Alanis, | Other | | 2020 | | MEDICINE [address] [place] [address] | MD Petrona | | | | | [facility] | [address] [place] [address] | | | | | [place] [address] | [place] [address] | | | | | [phone] | [phone] | | | | | | | [...] | [facility] [address] [place] | | | | | | [place] [address] | | | | | | [phone] | | | | | | | | +--------+---------+ + + + | 12/20/ | Office | Audiology | Elisabet Munson MS | | | 2019 | Visit | | [facility] [address] | | | | | | [place] [address] [address] | | | | | | [place] [address] | | | | | | [phone] | | | | | | | | +--------+---------+ + + + | 12/20/ | Office | Otolaryngology | Ulysses eGnao MD | | | 2019 | Visit | | [address] [facility] | | | | | | [address] [place], | | | | | | [place] [address] | | | | | | [phone] | | | | | | | | +--------+---------+ + + + documented as of this encounter Visit Diagnoses Not on filedocumented in this encounter"
--- OUTSIDE RECORDS SUMMARY | ~2019-10-17 | XMS | Encounter Summary ---
Demographics + + + | Address | [address] | | | [place] [address] | + + + | Home Phone [...] Providers + +------+ + | Care Group Home Paraprofessional Name | Role | Phone | + +------+ + | Pedrito Gutierrez MD | PCP | | + +------+ + Encounter Details +--------+ + + + + | Date | Type | Department | Care Team | Description | +--------+ + + + + | 03/29/ | Enameler | Orthopaedics at | Donna Clancy | Neoplasm of | | 2008 | | [facility] [address] | [facility] | Uncertain Behavior | | | | [address] | [facility] | of Bone and | | | | Mailcode: [id number] | [address] | Articular Cartilage | | | | Physician's Sharmila | [address] [place], | (Primary Dx) | | | | [place], [place] | [place] [address] | | | | | [address] | [phone] | | | | | [phone] | | | +--------+ + + + [...]
--- OUTSIDE RECORDS SUMMARY | ~2019-10-17 | XMS | Encounter Summary ---
Demographics + + + | Address | [address] | | | [place] [address] | + + + | Home Phone [...] Providers + +------+ + | Care Beam Builder Name | Role | Phone | [...] + + | 09/09/ | Telephone | [facility] | Alanis, | Phone Attempt | | 2019 | | MEDICINE [address] [place] [address] | MD Petrona | | | | | [facility] | [address] [place] [address] | | | | | [place] [address] | [place] [address] | | | | | [phone] | [phone] | | | | | | | [...] | | | | | [place] [address] | | | | | | [phone] | | | | | | | | +--------+---------+ + + + | 12/20/ | Office | Audiology | Elisabet Munson MS | | | 2019 | Visit | | [facility] [address] | | | | | [address] [place] | | | | | | [place] [address] | | | | | | [phone] | | | | | | | | +--------+---------+ + + + | 12/20/ | Office | Otolaryngology | Ulysses Genao MD | | | 2020 | Visit | | [address] | | | | | | [address] [place], | | | | | | [place] [address] | | | | | | [phone] | | | | | | | | +--------+---------+ + + + documented as of this encounter Visit Diagnoses Not on filedocumented in this encounter"
--- OUTSIDE RECORDS SUMMARY | ~2019-10-17 | XMS | Encounter Summary ---
Demographics + + + | Address | [address] | | | [place] [address] | + + + | Home Phone [...] Providers + +------+ + | Care Design Manager Name | Role | Phone [...] + | 05/18/ | Refill | [facility] | Alanis, | Medication Refill | | 2016 | | MEDICINE [address] [place] [address] | MD Petrona | | | | | [facility] | [address] [place] [address] | | | | | [place] [address] | [place] [address] | | | | | [phone] | [phone] | | | | | | | [...] | | | | | [place] [address] | | | | | | [phone] | | | | | | | | +--------+---------+ + + + | 12/20/ | Office | Audiology | Elisabet Munson MS | | | 2019 | Visit | | [facility] [address] | | | | | | [place] [address] [place] | | | | | | [place] [address] | | | | | | [phone] | | | | | | | | +--------+---------+ + + + | 12/20/ | Office | Otolaryngology | Ulysses Genao MD | | | 2020 | Visit | | [address] [facility] | | | | | | [address] [place], | | | | | | [place] [address] | | | | | | [phone] | | | | | | | | +--------+---------+ + + + documented as of this encounter Visit Diagnoses Not on filedocumented in this encounter"
--- OUTSIDE RECORDS SUMMARY | ~2019-10-17 | XMS | Encounter Summary ---
Demographics + + + | Address | [address] | | | [place] [address] | + + + | Home Phone [...] Providers + +------+ + | Care Perinatal Social Worker Name | Role | Phone [...] | | | | Ave Mailcode: [facility] | [address] | Diarrhea | | | | [facility] | [place], [place] | | | | | and Healing, | [address] | | | | | [place] [address] [facility] | [phone] | | | | | [place], [place] | | | | | | [address] | | | | | | [phone] | | | +--------+ + + + [...]
--- OUTSIDE RECORDS SUMMARY | ~2019-10-17 | XMS | Encounter Summary ---
Demographics + + + | Address | [address] | | | [place] [address] | + + + | Home Phone [...] Providers + +------+ + | Care Automobile Or Truck Rental Dispatcher Name | Role | Phone | [...] | Management | Chronic | [employer], [employer]AM PAN SPONGER | Rosi Armijo, ANP | | | | | neck pain | [address] | [address] | | | | | Low back | [address] | [address] | | | | | pain | [place] | [place], [place] | | | | | | [address] | [address] | | | | | | Phone: | | | | | | | [phone] | | | | | | | Fax: | | | | | | | [phone] | | +--------+--------+ + + + + Encounter Details +--------+---------+ + + + | Date | Type | Department | Care Team | Description | +--------+---------+ + + + | 08/09/ | Office | [facility] Comprehensive | Rosi Antonio, | Fibromyalgia | | 2013 | Visit | Pain Center at | ANP | syndrome 729.1 | | | | [facility] | | (Primary Dx); Major | | [...] anxiety; LBP | | | | Floor [place], [place] | | (low back pain); | | | | [address] | | Osteopenia; Chronic | | | | [phone] | | Bilateral Shoulder | | | [...] al. Diabetes Care. 28(1):89-94, 2004; Anca M, [facility]. [address] 1:25-30; discussion 45-6, [...] might be different fro m the original. [facility] Comprehensive Pain Center Return Visit 08/09/2013 [...] never going to her local hospital in [place] for any medical evaluations. Belinda is very [...] Overview Note: Surgery 05/15/08 Dr Ricky Garnett [place] JEY karlos to get operative reports Osteopenia [...] and a pain drawing which I reviewed. [facility] Brief Pain [...] regions, she notes pain in her right restoration, bilateral shoul crista muscles, left elbow, entire [...] right knee Lumbar fusion 05/2008, ' & L5-M7dtiaym with bone spur removals Appendectomy Cholecystectomy section [...] Hives Mainly in the legs Clindamycin Codeine Bbkimtt-Rcfhywurop-Onp-Caff Balance problems Fioricet W/Codeine (Hqdssyvduf-Cbbygisftl-Jvy-Cod) Keflex (Cephalexin) Morphine IM ( only in [facility]) made gut pain worse 08/27/06: Trial of oral MSIR caused leg swelling Penicillins Sulfa (Sulfonamide Antibiotics) Tramadol Ms. Meehan reports no side effects. The Review of Systems provided by Ms. Meehan and documented by the [facility] was reviewed. This data was entered [...] al. Diabetes Care. 28(1):89-94, 2004; Anca M, [facility]. [address] 1:25-30; discussion 45-6, [...] of which more than 50% was spent gebfb-ir-pogj in r eviewing pain questionnaire, medical record, [...] | + +---------+ + + | [facility] DEPARTMENT OF | | | | [...]
--- OUTSIDE RECORDS SUMMARY | ~2019-10-17 | XMS | Encounter Summary ---
Demographics + + + | Address | [address] | | | [place] [address] | + + + | Home Phone [...] Providers + +------+ + | Care Group Insurance Special Agent Name | Role | [...] + + | 03/10/ | Telephone | [facility] | Alanis, | Grief/ Loss | | 2019 | | MEDICINE [address] [place] [address] | MD Petrona | | | | | [facility] | [address] [place] [address] | | | | | [place] [address] | [place] [address] | | | | | [phone] | [phone] | | | | | | | [...] | | | | | [place] [address] | | | | | | [phone] | | | | | | | | +--------+---------+ + + + | 12/20/ | Office | Audiology | Elisabet Munson MS | | | 2019 | Visit | | [facility] [address] | | | | | | ST [place] | | | | | | [place] [address] | | | | | | [phone] | | | | | | | | +--------+---------+ + + + | 12/20/ | Office | Otolaryngology | Ulysses Genao MD | | | 2020 | Visit | | [address] [place] | | | | | | [address] [place], | | | | | | [place] [address] | | | | | | [phone] | | | | | | | | +--------+---------+ + + + documented as of this encounter Visit Diagnoses Not on filedocumented in this encounter"
--- OUTSIDE RECORDS SUMMARY | ~2019-10-17 | XMS | Encounter Summary ---
Demographics + + + | Address | [address] | | | [place] [address] | + + + | Home Phone [...] Team Providers + +------+ + | Care Statistical Methods Teacher Name | Role | Phone | [...] + + | 08/23/ | Telephone | [facility] | Alanis, | Medication Follow-up | | 2019 | | [address] | MD Petrona | (Prior | | | | [facility] | [address] [place] [address] | Authorization | | | | [place] [address] | [place] [address] | needed) | | | | [phone] | [phone] | | | | | | | [...] | | | | | [address] [facility] | | | | | | [place] [address] | | | | | | [phone] | | | | | | | | +--------+---------+ + + + | 12/20/ | Office | Audiology | Elisabet Munson MS | | | 2019 | Visit | | [facility] [address] | | | | | | [address] [place] | | | | | | [place] [address] | | | | | | [phone] | | | | | | | | +--------+---------+ + + + | 12/20/ | Office | Otolaryngology | Ulysses Genao MD | | | 2019 | Visit | | [address] [place] | | | | | | [address] [place], | | | | | | [place] [address] | | | | | | [phone] | | | | | | | | +--------+---------+ + + + documented as of this encounter Visit Diagnoses Not on filedocumented in this encounter"
--- OUTSIDE RECORDS SUMMARY | ~2019-10-17 | XMS | Encounter Summary ---
Demographics + + + | Address | [address] | | | [place] [address] | + + + | Home Phone [...] Providers + +------+ + | Care Pocket Creaser Name | Role | Phone | + [...]
--- OUTSIDE RECORDS SUMMARY | ~2019-10-17 | XMS | Encounter Summary ---
Demographics + + + | Address | [address] | | | [place] [address] | + + + | Home Phone [...] Team Providers + +------+ + | Care Basketball Referee Name | Role | Phone | [...] | PPV [address] | John [facility] | Pre-Operative | | | | [address] | [facility] | Examination (Primary | | | | Mailcode: PV430 | [address] | Dx) | | | | Physician's Pavilion | [address] [place], | | | | | [place], [place] | [place] [address] | | | | | [address] | [phone] | | | | | [phone] | | | +--------+---------+ + + + [...] surgeries scheduled to take place on the terrell at the [facility]: Surgeries scheduled in the [facility] ([address] [place] [address]): registration is located on the 4th floor of [facility] (Day Surgery). Surgeries scheduled in the [facility]: registration is located on the 9th floor. Surgeries scheduled in [facility]: registration is located on the 6th floor. Surgeries scheduled in the [facility]: registration is located i n the [facility] on the first floor. For surgeries scheduled to take place at the [facility]: registration is l ocated on [...] you use specialized medical equipment at [facility], please check with your provider before [...] surgeries scheduled to take place on the terrell at the [facility]: Surgeries scheduled in the [facility] ( [facility]): registration is located on the 4th floor of [facility] (Day Surgery). Surgeries scheduled in the [facility]: registration is located on the 9th floor. Surgeries scheduled in [facility]: registration is located on the 6th floor. Surgeries scheduled in the [facility]: registration is located i n the [facility] on the first floor. For surgeries scheduled to take place at the [facility]: registration is l [...] you use specialized medical equipment at [facility], please check with your provider before [...] Overview Note: Surgery 05/15/08 Dr Ricky Garnett [place] JEY karlos to get operative reports Osteopenia [...] 08/2007 right knee Hx lumbar fusion 05/2008 L5-B8ljnxow with bone spur removals Hx appendectomy Hx [...] swelling Clarithromycin Hives Mainly in the legs Mygcmng-lxmkxkbwyj-xli-caff Balance problems Amitriptyline Grand mal seizures Fioricet W/codeine (Rns-ximebgpyhr-vqaqlodzta-caf) FAMILY HISTORY: Family History Problem Relation Cancer [...] | | | DEPARTMENT | | | [place] | | | OF | | | [...] + + | [facility] | [address] | [place] [address] | | | PATHOLOGY | [address] | | | + + + + + | [facility] DEPARTMENT OF | [address] | [place] [address] | | | PATHOLOGY | [address] [...] DEPARTMENT OF | [address] | [place] [address] | | | PATHOLOGY | [address] | | | + + + + + | [facility] | [address] | [place] [address] | | | PATHOLOGY | [address] | | | + + + + + documented in this encounter Visit Diagnoses + + | Diagnosis | + + | Other specified pre-operative examination - Primary | + + documented in this encounter
--- OUTSIDE RECORDS SUMMARY | ~2019-10-17 | XMS | Encounter Summary ---
Demographics + + + | Address | [address] | | | [place] [address] | + + + | Home Phone [...] Team Providers + +------+ + | Care Carrier Loader Name | Role | Phone | [...] + | 10/13/ | Telephone | [facility] | Alanis, | Appointment Question | 2019 | | MEDICINE [address] [place] [address] | MD Petrona | | | | | [facility] | [address] [place] [address] | | | | | [place] [address] | [place] [address] | | | | | [phone] | [phone] | | | | | | | [...] [place] | | | | | | [place] [address] | | | | | | [phone] | | | | | | | | +--------+---------+ + + + | 12/20/ | Office | Audiology | Elisabet Munson MS | | | 2019 | Visit | | [facility] [address] | | | | | | [place] [address] [place] | | | | | | [place] [address] | | | | | | [phone] | | | | | | | | +--------+---------+ + + + | 12/20/ | Office | Otolaryngology | Ulysses Genao MD | | | 2020 | Visit | | [address] [facility] | | | | | | [address] [place], | | | | | | [place] [address] | | | | | | [phone] | | | | | | | | +--------+---------+ + + + documented as of this encounter Visit Diagnoses Not on filedocumented in this encounter"
--- OUTSIDE RECORDS SUMMARY | ~2019-10-17 | XMS | Encounter Summary ---
Demographics + + + | Address | [address] | | | [place] [address] | + + + | Home Phone [...] Team Providers + +------+ + | Care Floral Arranger Name | Role | Phone | + +------+ + | Sulaiman Carrera MD | PCP | | + +------+ + Encounter Details +--------+ + + + + | Date | Type | Department | Care Team | Description | +--------+ + + + + | 07/24/ | Ancillary | Registration [address] | [place], | | | 2006 | Registratio | [facility] | MD Lukasz [address] | | | [address] | [address] Mailcode: RPB07 | [place], | | | | | [place], [place] | [place] [address] | | | | | [address] | [phone] | | | | | [phone] | | | +--------+ + + + [...] | | | | | performed at [facility] | | | | | | [place] [...] + + + + + | [facility] | [address] | [place] [address] | | | LABORATORY | | | [...] [facility] DEPARTMENT OF | [address] | [place] [address] | | | PATHOLOGY | [address] | | | + + + + + | [facility] DEPARTMENT OF | [address] | [place] [address] | | | PATHOLOGY | [address] [...] DEPARTMENT OF | [address] | [place] [address] | | | PATHOLOGY | [address] | | | + + + + + | [facility] DEPARTMENT OF | [address] [facility] | [place] [address] | | | PATHOLOGY | [address] [...] | [address] | [place] [address] | | | PATHOLOGY | [address] | | | + + + + + | [facility] DEPARTMENT OF | [address] | [place] [address] | | | PATHOLOGY | [address] | | | + + + + + PROTHROMBIN TIME (07/24/2005 5:03 PM PST) + + + + + + | Component | Value | Ref Range | Performed | Pathologist | | | | | At | Signature | + + + + + + | INR | 0.97Comment: | 0.90 - 1.20 INR | [facility] [...] + | [facility] | [address] | [place] [address] | | | PATHOLOGY | [address] | | | + + + + + | [facility] DEPARTMENT OF | [address] | [place] [address] | | | PATHOLOGY | [address] [...] + | [facility] | [address] | [place] [address] | | | PATHOLOGY | [address] | | | + + + + + | [facility] | [address] | [place] [address] | | | PATHOLOGY | [address] | | | + + + + + documented in this encounter Visit Diagnoses Not on filedocumented in this encounter"
--- OUTSIDE RECORDS SUMMARY | ~2019-10-17 | XMS | Encounter Summary ---
Demographics + + + | Address | [address] | | | [place] [address] | + + + | Home Phone [...] Providers + +------+ + | Care Executive Advisor Name | Role | Phone | [...] | unspecified | | | | [address] [facility] | [address] | chronicity (Primary | | | | [place] | [place] [address] | Dx) | | | | [address] | [phone] | | | | | [phone] | | | +--------+ + + + [...] | | | | | | [place] [address] | | | | | | [phone] | | | | | | | | +--------+---------+ + + + | 12/20/ | Office | Audiology | Elisabet Munson MS | | | 2019 | Visit | | [facility] [address] | | | | | | [place] | | | | | | [place] [address] | | | | | | [phone] | | | | | | | | +--------+---------+ + + + | 12/20/ | Office | Otolaryngology | Ulysses Genao MD | | | 2020 | Visit | | [address] [facility] | | | | | | [address] [place], | | | | | | [place] [address] | | | | | | [phone] | | | | | | | [...]
--- OUTSIDE RECORDS SUMMARY | ~2019-10-17 | XMS | Encounter Summary ---
Demographics + + + | Address | [address] | | | [place] [address] | + + + | Home Phone [...] Providers + +------+ + | Care Inventory Associate Name | Role | Phone | [...] + + | 07/28/ | Telephone | [facility] | Alanis, | Appointment | | 2018 | | MEDICINE [address] [place] [address] | MD Petrona | | | | | [facility] | [address] [place] [address] | | | | | [place] [address] | [place] [address] | | | | | [phone] | | | | | | | [...] | | | | | [place] [address] | | | | | | [phone] | | | | | | | | +--------+---------+ + + + | 12/20/ | Office | Audiology | Elisabet Munson MS | | | 2020 | Visit | | [facility] [address] | | | | | | [place] [address] [place] | | | | | | [place] [address] | | | | | | [phone] | | | | | | | | +--------+---------+ + + + | 12/20/ | Office | Otolaryngology | Ulysses Genao MD | | | 2020 | Visit | | [address] | | | | | | [address] [place], | | | | | | [place] [address] | | | | | | [phone] | | | | | | | | +--------+---------+ + + + documented as of this encounter Visit Diagnoses Not on filedocumented in this encounter"
--- OUTSIDE RECORDS SUMMARY | ~2019-10-17 | XMS | Encounter Summary ---
Demographics + + + | Address | [address] | | | [place] [address] | + + + | Home Phone [...] Providers + +------+ + | Care Sand Mill Operator Facing Sand Name | Role | Phone | + [...] Other (wondering | | 2008 | | [place] [address] | [address] | ablout colonoscopy) | | | | Ave Mailcode: CH4S | [facility] | | | | | [facility] | [place], [place] | | | | | and [place], | [address] | | | | | [facility] | [phone] | | | | | [place], [place] | | | | | | [address] | | | | | | [phone] | | | +--------+ + + + [...]
--- OUTSIDE RECORDS SUMMARY | ~2019-10-17 | XMS | Encounter Summary ---
Demographics + + + | Address | [address] | | | [place] [address] | + + + | Home Phone [...] Providers + +------+ + | Care Zinc Miner Blasting Name | Role | Phone [...] + | 03/14/ | Refill | [facility] | Alanis, | Medication Refill | | 2018 | | MEDICINE [address] [place] [address] | MD Petrona | | | | | [facility] | [address] [place] [address] | | | | | [place] [address] | [place] [address] | | | | | [phone] | [phone] | | | | | | | [...] | | | | | [place] [address] | | | | | | [phone] | | | | | | | | +--------+---------+ + + + | 12/20/ | Office | Audiology | Elisabet Munson MS | | | 2019 | Visit | | [facility] [address] | | | | | | [place] [address] [place] | | | | | | [place] [address] | | | | | | [phone] | | | | | | | | +--------+---------+ + + + | 12/20/ | Office | Otolaryngology | Ulysses Genao MD | | | 2020 | Visit | | [address] [facility] | | | | | | [address] [place], | | | | | | [place] [address] | | | | | | [phone] | | | | | | | | +--------+---------+ + + + documented as of this encounter Visit Diagnoses Not on filedocumented in this encounter"
--- OUTSIDE RECORDS SUMMARY | ~2019-10-17 | XMS | Encounter Summary ---
Demographics + + + | Address | [address] | | | [place] [address] | + + + | Home Phone [...] + +------+ + | Care Membership Sales Representative Name | Role | Phone [...] + | 05/14/ | Telephone | [facility] | Alanis, | Referral | | 2017 | | MEDICINE [address] [place] [address] | MD Petrona | | | | | [facility] | [address] [place] [address] | | | | | [place] [address] | [place] [address] | | | | | [phone] | [phone] | | | | | | | [...] | | | | | [place] [address] | | | | | | [phone] | | | | | | | | +--------+---------+ + + + | 12/20/ | Office | Audiology | Elisabet Munson MS | | | 2019 | Visit | | [facility] [address] | | | | | | [place] [address] [place] | | | | | | [place] [address] | | | | | | [phone] | | | | | | | | +--------+---------+ + + + | 12/20/ | Office | Otolaryngology | Ulysses Genao MD | | | 2020 | Visit | | [address] [facility] | | | | | | [address] [place], | | | | | | [place] [address] | | | | | | [phone] | | | | | | | | +--------+---------+ + + + documented as of this encounter Visit Diagnoses Not on filedocumented in this encounter"
--- OUTSIDE RECORDS SUMMARY | ~2019-10-17 | XMS | Encounter Summary ---
Demographics + + + | Address | [address] | | | [place] [address] | + + + | Home Phone [...] Team Providers + +------+ + | Care Gut Sorter Name | Role | Phone | [...] Registratio | [facility] | [address] | | | | n | [place] Mailcode: RPB07 | [place], [place] | | | | | [place], [place] | [address] | | | | | [address] | [phone] | | | | | [phone] | | | +--------+ + + + [...] | | | | | performed by [employer] | pg/mL | | | | | [facility]. | | | | + + + + + + + + | Specimen | + + | | + + + + + + + | Performing | Address | City/State/Zipcode | Phone Number | | Organization | | | | + + + + + | [facility] | [address] | [place] [address] | | | LABORATORY | | | [...] at: | | | | | | [email or web address] | | | | | | [facility] | | | | | | [address] | | | | | | [email or web address] | | | | + + + + + + + + | Specimen | + + | | + + + + + + + | Performing | Address | City/State/Zipcode | Phone Number | | Organization | | | | + + + + + | [facility] | [address] | [place], [place] | | | [facility] | | [address] | | + + + + + [...] Iron and TIBC, Serum Test performed by [facility] | | | [facility]. | | + + + + + + + + | Performing | Address | City/State/Zipcode | Phone Number | | Organization | | | | + + + + + | [facility] | [address] | [place] [address] | | | LABORATORY | | | [...] | B12, SERUM | Test performed by [facility] | | | | | | [facility] [...] + + + + + | [facility] | [address] | [place] [address] | | | LABORATORY | | | [...] [facility] DEPARTMENT OF | [address] | [place] [address] | | | PATHOLOGY | [address] | | | + + + + + | [place] DEPARTMENT OF | [address] | [place] [address] | | | PATHOLOGY | [address] [...] [address] | [place] [address] | | | PATHOLOGY | [address] | | | + + + + + | [facility] | [facility] [address] | [place] [address] | | | PATHOLOGY | [address] [...] Performed At | + + + | [id number] Estimated GFR > 60 mL/min/1.73 sq m if non- | [facility] | | [id number] Estimated GFR > 60 mL/min/1.73 sq m [...] + + | [facility] | [address] | [place] [address] | | | PATHOLOGY | [address] | | | + + + + + | [facility] | [address] | [place] [address] | | | PATHOLOGY | [address] | | | + + + + + documented in this encounter Visit Diagnoses Not on filedocumented in this encounter"
--- OUTSIDE RECORDS SUMMARY | ~2019-10-17 | XMS | Encounter Summary ---
Demographics + + + | Address | [address] | | | [place] [address] | + + + | Home Phone [...] Providers + +------+ + | Care Bean Snapper Name | Role | Phone | + +------+ + PCP | Unavailable | + +------+ + Encounter Details +--------+ + + + + | Date | Type | Department | Care Team | Description | +--------+ + + + + | 11/22/ | Results | | Other, Faculty | | | 2004 | Only | | [phone] | | +--------+ + + + + [...] + | Ordered by SYEDA MCKENZIE | [facility] | | | DEPARTMENT OF | | | PATHOLOGY | + + + + + + + + | Performing | Address | City/State/Zipcode | Phone Number | | Organization | | | | + + + + + | [facility] DEPARTMENT OF | [address] | [place] [address] | | | PATHOLOGY | [address] | | | + + + + + | [place] DEPARTMENT OF | [address] | [place] [address] | | | PATHOLOGY | [address] [...] + + + + | [facility] DEPARTMENT | [address] | [place] [address] | | | PATHOLOGY | [address] | | | + + + + + | [facility] | [address] | [place] [address] | | | PATHOLOGY | [address] [...] | [facility] | [address] | [place] [address] | | | PATHOLOGY | [address] | | | + + + + + | [facility] | [address] | [place] [address] | | | PATHOLOGY | [address] [...] DEPARTMENT OF | [address] | [place] [address] | | | PATHOLOGY | [address] | | | + + + + + | [facility] DEPARTMENT OF | [address] | [place] [address] | | | PATHOLOGY | [address] [...] DEPARTMENT OF | [address] | [place] [address] | | | PATHOLOGY | [address] | | | + + + + + | [facility] DEPARTMENT OF | [address] | [place] [address] | | | PATHOLOGY | [address] [...] + + + + | [facility] DEPARTMENT | [address] | [place] [address] | | | PATHOLOGY | [address] | | | + + + + + | [facility] DEPARTMENT OF | [address] | [place] [address] | | | PATHOLOGY | [address] | | | + + + + + documented in this encounter Visit Diagnoses Not on filedocumented in this encounter"
--- OUTSIDE RECORDS SUMMARY | ~2019-10-17 | XMS | Encounter Summary ---
Demographics + + + | Address | [address] | | | [place] [address] | + + + | Home Phone [...] Providers + +------+ + | Care Superintendent Oil Well Services Name | Role | Phone | [...] + | 06/25/ | Refill | [facility] | Alanis, | Medication Refill | | 2018 | | MEDICINE [address] [place] [address] | MD Petrona | | | | | [facility] | [address] [place] [address] | | | | | [place] [address] | [place] [address] | | | | | [phone] | [phone] | | | | | | | [...] | | | | | [place] [address] | | | | | | [phone] | | | | | | | | +--------+---------+ + + + | 12/20/ | Office | Audiology | Elisabet Musnon MS | | | 2019 | Visit | | [facility] [address] | | | | | | [place] [address] [place] | | | | | | [place] [address] | | | | | | [phone] | | | | | | | | +--------+---------+ + + + | 12/20/ | Office | Otolaryngology | Ulysses Genao MD | | | 2020 | Visit | | [address] [facility] | | | | | | [address] [place], | | | | | | [place] [address] | | | | | | [phone] | | | | | | | | +--------+---------+ + + + documented as of this encounter Visit Diagnoses Not on filedocumented in this encounter"
--- OUTSIDE RECORDS SUMMARY | ~2019-10-17 | XMS | Clinical Summary ---
Demographics + + + | Address | [address] | | | [place] [address] | + + + | Home Phone [...] + + + + + + | Huddrrtqyv-Tylu-Slrx | Rash | Low | | duplicate | | eine | | | | | + + + + + + | Wpbjnuitac-Ijmb-Vfig | Hives, Rash | Low | 03/25/20 | | | eine | | | 17 | | + + + + + + | Vxjlgopglz-Qnd-Dbnt- | Other (See Comments) | Medium | [...] | 19 | | | | : long term acute care registered nurse | Decreased | | | | | [...] | +--------+ + + + + | 05/01/ | Telephone | Internal Medicine | Alanis, [...] | | | | | [place] [address] | | | | | | [phone] | | | | | | | | +--------+---------+ + + + | 12/20/ | Office | Audiology | Elisabet Munson MS | | | 2019 | Visit | | [facility] [address] | | | | | | [place] | | | | | | [place] [address] | | | | | | [phone] | | | | | | | | +--------+---------+ + + + | 12/20/ | Office | Otolaryngology | Ulysses Genao MD | | | 2020 | Visit | | [address] [place] | | | | | | [address] [place], | | | | | | [place] [address] | | | | | | [phone] | | | | | | | [...] +--------+ +---------+--------+ | MEDICARE | MEDICA | [id number] | 07/16/19 | [phone] | | Medica | | | RE | | 03-Pre | 5 | | re | | | PART A | | sent | | | | | | AND B | | | | | | + +--------+ +--------+ +---------+--------+ | [employer] | MODA | [id number] | 06/16/19 | [phone] | | Medica [...] al/Fam | | 9 | [id number] | [place] [address] | | | bijan | | | 0 (Home) | | + +--------+ +--------+ + + Advance Directives + + + + + | Type | Date Recorded | Patient | Explanation | | | | Imaging Technician | | + + + + + | Power of | | | | | Biologics Specialist | | | | + + + + + | Advance | 10/14/2018 10:09 | | | | Directive | AM | | | + + + + +
--- OUTSIDE RECORDS SUMMARY | ~2019-10-17 | XMS | Encounter Summary ---
Demographics + + + | Address | [address] | | | [place] [address] | + + + | Home Phone [...] Team Providers + +------+ + | Care Bow String Maker Name | Role | Phone | [...] | | | Metabolism | bypass | [address] | [address] | | | | | Hypovitamino | [address], | Ave | | | | | sis D B12 | [address] | [place], [place] | | | | | nutritional | [place] | [address] | | | | | deficiency | [address] | Phone: | | | | | Other | Phone: | [phone] | | | | | protein-jose manuel | [phone] | Fax: | | | | | nick | Fax: | [phone] | | | | | malnutrition | [phone] | | | | | | Weight | | | | | | | gain | | | | | | | Procedures | | | | | | | CONSULT TO | | | | | | | ENDO | | | | | | | [address] | | | +--------+--------+ + + + [...] | | | [facility] | [place], [place] | (Primary Dx); | | | | [address] | [address] | Metabolic syndrome X | | | | [address] | [phone] | 250.80; Essential | | | | [facility] | | hypertension 401.9; | | | | Physician's | | Unstable balance | | | | Pavilion [place], | | | | | | [place] [address] | | | | | | [phone] | | | +--------+---------+ + + + [...] Hives Mainly in the legs Clindamycin Codeine Ftuexki-Lwlhbiemmn-Hys-Caff Balance problems Fioricet W/Codeine (Hrnxkpfgos-Howgnhnzqk-Xto-Cod) Keflex (Cephalexin) Morphine IM ( only in [...] U/L 41 ANION GAP 8 VITAMIN B12, [id number] pg/ml >2000 (H) HEMOGLOBIN A1C <=5.6 % [...] SERUM 15.0-85.0 pg/ml 222.9 (H) VITAMIN B12, PPSQT063-075 pg/ml > 2000 HEMOGLOBIN A1C <=5.6 % [...] home vi a a long drive to [place]. She needs further evaluation of her right hip and DECKHAND SPONGE BOAT. This c an be most easily accomplished [...] [place] | [address] | [place], [place] | | | [facility]ARE | [address] | [address] | | | TESTS | | | [...] VERONICA | [address] | [place], [place] | | | [facility] | [address] | [address] | | | TESTS | | | [...]
--- OUTSIDE RECORDS SUMMARY | ~2019-10-17 | XMS | Encounter Summary ---
Demographics + + + | Address | [address] | | | [place] [address] | + + + | Home Phone [...] Providers + +------+ + | Care Teacher Physically Impaired Name | Role | Phone | + [...] Rehabilitatio | bilateral | i, | [address] | | | | n | low back | Sul[place] | [place], | | | | | pain with | [address] | [place] [address] | | | | | left-sided | [address] | Phone: | | | | | sciatica | [place], | [phone] | | | | | Muscle spasm | [place] | Fax: | | | | | | [address] | [phone] | | | | | Fibromyalgia | Phone: | | | | | | | [phone] | | | | | | | Fax: | | | | | | | [phone] | | +--------+ + + + + + Reason for Visit + + + | Reason | Comments | + + + | Follow-up | 2 month | + + + Encounter Details +--------+---------+ + + + | Date | Type | Department | Care Team | Description | +--------+---------+ + + + | 05/04/ | Office | [facility] | Alanis, | Chronic bilateral | | 2017 | Visit | MEDICINE [address] | MD Petrona | low back pain with | | | | [address] | [address] [facility] | left-sided sciatica | | | | [place] [address] | [place] [address] | (Primary Dx); Muscle | | | | [phone] | [phone] | spasm; | | | | | [...] also help with symptoms. Date Last Reviewed: 07/29/201519990650-8307 [employer]. [address] [place] [address], [place] [address]. All righ ts reserved. This information is [...] Nonalcoholic hepatosteatosis Obesity Opiate dependence ([facility]) Orthostatic hypotension OLIVER (obstructive sleep apnea) Osteoarthritis, generalized Osteopenia Osteoporosis Peripheral neuropathy ([facility]) Rheumatoid arthritis ([facility]) Right [...] (See Comments) Confused and questionable for seizures Pwyomnirpt-Jvtk-Ghjneprf Cephalexin Hives Ketorolac Hives Morphine Swelling Tramadol Hcl Nausea Only Csgehvrbmy-Qxmz-Aptulqwh Hives and Rash Ciprofloxacin Hives and Rash [...] back pain with left-sided sciatica - * [facility] Physiatry - [facility] Referral; Future - CBC with Differential; Future - Comprehensive Metabolic Panel; Future - TSH; Future - CK Total; Future - C-Reactive Protein; Future 2. Muscle spasm - * [facility] Physiatry - [facility] Referral; Future - CBC with Differential; Future - Comprehensive Metabolic Panel; Future - TSH; Future - CK Total; Future - C-Reactive Protein; Future - methocarbamol (ROBAXIN) 750 mg tablet; take 1 tablet by mouth twice a day Dispense: 60 t ablet; Refill: 3 3. Fibromyalgia - * [facility] Physiatry - [facility] Referral; Future - CBC with Differential; Future - Comprehensive Metabolic Panel; Future - TSH; Future - CK Total; Future - C-Reactive Protein; Future 4. Left hip pain - XR Hip Left 2-3 Views; Future FOLLOW-UP No Follow-up on file. Note: Parts of this documentwere created using [employer] speech recognition software. As a r esult, [...] | | | | | [place] [address] | | | | | | [phone] | | | | | | | | +--------+---------+ + + + | 12/20/ | Office | Audiology | Elisabet Munson MS | | | 2019 | Visit | | [facility] [address] | | | | | [address] [place] | | | | | | [place] [address] | | | | | | [phone] | | | | | | | | +--------+---------+ + + + | 12/20/ | Office | Otolaryngology | Ulysses Genao MD | | | 2019 | Visit | | [address] [place] | | | | | | [address] [place], | | | | | | [place] [address] | | | | | | [phone] | | | | | | | [...] [address] | [place] | [phone] | | [facility] | | [address] | | | - LABORATORY | | [...] [address] | [place] | [phone] | | [facility] | | [address] | | | - LABORATORY | | [...] | [address] | [place], [place] | [phone] | | [facility] | | [address] | | | - LABORATORY | | [...] mL/min/1.73m2 | [facility] | | | ERITREAN | RATE,ESTIMATED | | MEDICAL | | | | mL/min/1.30m4Mtkc than | | CENTER - | | [...] | [address] | [place] | [phone] | | [facility] | | [address] | | | - LABORATORY | | [...] [address] | [place] | [phone] | | [facility] | | [address] | | | - LABORATORY | | [...]
--- OUTSIDE RECORDS SUMMARY | ~2019-10-17 | XMS | Encounter Summary ---
Demographics + + + | Address | [address] | | | [place] [address] | + + + | Home Phone [...] Providers + +------+ + | Care Production Support Analyst Name | Role | Phone | + +------+ + | Sulaiman Carrera MD | PCP | | + +------+ + Encounter Details +--------+ + + + + | Date | Type | Department | Care Team | Description | +--------+ + + + + | 06/30/ | Telephone | [facility] | Lukasz Ogden, | | | 2013 | | [address] | PhD [address] | | | | | Mailcode: CH15P | [place], [place] | | | | | [facility] | [address] | | | | | and Healing, | [phone] | | | | | Building | | | | | | Floor [place], [place] | | | | | | [address] | | | | | | [phone] | | | +--------+ + + + [...]
--- OUTSIDE RECORDS SUMMARY | ~2019-10-17 | XMS | Encounter Summary ---
Demographics + + + | Address | [address] | | | [place] [address] | + + + | Home Phone [...] Providers + +------+ + | Care Boiler Water Tester Name | Role | Phone | [...] [address] | | | | | | [place], [place] | | | | | | [address] | | | | | | [phone] | | | +--------+--------+ + + + [...]
--- OUTSIDE RECORDS SUMMARY | ~2019-10-17 | XMS | Encounter Summary ---
Demographics + + + | Address | [address] | | | [place] [address] | + + + | Home Phone [...] Team Providers + +------+ + | Care Nitrator Operator Name | Role | Phone | [...] | | | | [place], | [address] | | | | | | [place] | Phone: | | | | | | [address] | [phone] | | | | | | Phone: | Fax: | | | | | | [phone] | [phone] | | | | | | Fax: | | | | | | | [phone] | | +--------+ + + + + + Reason for Visit + + + | Reason | Comments | + + + | Follow-up | 1 month/ pain management person sayfarncesco burch has dementia | + + + | Injections | b 12 | + + + | Medication Follow-up | Reclast | + + + | Lab Order | check electrolytes | + + + Encounter Details +--------+---------+ + + + | Date | Type | Department | Care Team | Description | +--------+---------+ + + + | 04/18/ | Office | [facility] | Alanis, | Poor memory (Primary | | 2019 | Visit | MEDICINE [address] [place] [address] | MD Petrona | Dx); B12 | | | | [address] [place] | [address] [facility] | deficiency; Fatty | | | | [place] [address] | [place] [address] | liver | | | | [phone] | [phone] | | | | | | | [...] nl. No depression or suicidal thinki ng. [place] Cognitive Assessment ([facility]) Office Visit from 04/18/2019 in [facility] MEDICINE Visuospatial / Executive 4 [...] Allergen Reactions Ensure Diarrhea Food Diarrhea Lactose Yzifmunjjk-Avt-Pajj-Codeine Other (See Comments) Balance problems Codeine Sulfate Nausea Only Food Allergy Formula Diarrhea Ensure Levofloxacin Hives, Itching and Rash Butalbital Ropinirole Amitriptyline Hcl Other (See Comments) Confused and questionable for seizures Tpgjjccawx-Cmit-Vocduvvz Rash duplicate Vwgjabwaey-Hmre-Lzqyxotz Hives and Rash Cephalexin Hives Ciprofloxacin Hives [...] 1. Parts of this documentwere created using [employer] speech recognition software. As a resu lt, [...] Petrona | | | | | | [facility] [address] [facility] | | | | | | [place] [address] | | | | | | [phone] | | | | | | | | +--------+---------+ + + + | 12/20/ | Office | Audiology | Elisabet Munson MS | | | 2019 | Visit | | [facility] [address] | | | | [address] [place] | | | | | | [place] [address] | | | | | | [phone] | | | | | | | | +--------+---------+ + + + | 12/20/ | Office | Otolaryngology | Ulysses Genao MD | | | 2019 | Visit | | [address] | | | | | | [address] [place], | | | | | | [place] [address] | | | | | | [phone] | | | | | | | [...] | | MEDICAL | | | | mL/min/1.09k9Pcrb than | | CENTER - | | [...] | 9.9 | 8.7 - 10.4 | [facility] | | | | | mg/dL | [facility] | | | | | | MEDICAL | | | | | | CENTER - | | | | | | LABORATORY | | + + + + + + | Albumin | 4.4 | 3.2 - 4.8 g/dL | [facility] | | | | [...] [address] | [place] | [phone] | | [facility] | | [address] | | | - LABORATORY | | [...] [address] | [place] | [phone] | | [facility] | | [address] | | | - LABORATORY | | | | + + + + + Vitamin B-12 (04/18/2019 11:29 AM PST) + + + + + + | Component | Value | Ref Range | Performed | Pathologist | | | | | At | Signature | + + + + + + | VITAMIN | >[id number] (H)Comment: | 156 - 672 pg/mL | [facility] | | | B-12 | DEFICIENT: | | STYudy NATHAN | | | | <145 | [...] [address] | [place] | [phone] | | [facility] | | [address] | | | - LABORATORY | | [...]
--- OUTSIDE RECORDS SUMMARY | ~2019-10-17 | XMS | Encounter Summary ---
Demographics + + + | Address | [address] | | | [place] [address] | + + + | Home Phone [...] Team Providers + +------+ + | Care Geotechnician Name | Role | Phone | + [...] of this encounter Progress Notes Interface, Employment Adjudicator In - 06/06/2005 2:05 AM [facility] [id number] [facility] Date: 05/29/2005 Clinic: Bariatric [...] a day. She has had workups in [place] including CT and upper GI with small-bowel followthrough which have reportedly been negative. She has some recent changes in her medications including addition of a calcium channel colby and diclofenac. She says her symptoms gets worse every time she takes pain medicine. She is currently taking oxycodone. Her primary doctor in [place] is Dr. Gutierrez. Physical Examination: Vital Signs: [...] will try to arrange for her in [place], so she does not have to come out here. We will call Dr. Gutierrez to try to arrange for this and followup her within 3 months. The patient was seen with Dr. Padgett. Karen Cisneros M.D. Chris Padgett M.D. / SHARIF [id number] / [id number] / [id number] / [id number] Electronically signed by Chris Padgett 06-05-2005 05:29:09 PM documented i n this encounter Plan of Treatment Not on filedocumented as of this encounter Visit Diagnoses Not on filedocumented in this encounter"
--- OUTSIDE RECORDS SUMMARY | ~2019-10-17 | XMS | Encounter Summary ---
Demographics + + + | Address | [address] | | | [place] [address] | + + + | Home Phone [...] + | 09/14/ | Procedure - | [facility] Division of | Endoscopy, Gi [...] [address] | | | | | | [place], [place] | | | | | | [address] | | | | | | [phone] | | | +--------+ + + + [...] + + + | PROCEDURES:PANENDOSCOPY (EGD) CPT: [id number]. PERSONNEL:THE | | | ATTENDING PHYSICIAN WAS [...] AM PDT | | PROCEDURES:PANENDOSCOPY (EGD) CPT: [id number]. | | PERSONNEL:THE ATTENDING PHYSICIAN WAS PRESENT [...]
--- OUTSIDE RECORDS SUMMARY | ~2019-10-17 | XMS | Encounter Summary ---
Demographics + + + | Address | [address] | | | [place] [address] | + + + | Home Phone [...] Providers + +------+ + | Care Television Program Director Name | Role | [...] 01/04/ | Telephone | [facility] | Ulysses Genao MD | Other | | 2017 | | OTOLARYNGOLOGY [address] | [address] [facility] | | | | | [address] [facility] [address] | [address] [place], | | | | | [place] | [place] [address] | | | | | [address] | [phone] | | | | | [phone] | | | +--------+ + + + [...] | | | [facility] [address] [place] | | | | | | [place] [address] | | | | | | [phone] | | | | | | | | +--------+---------+ + + + | 12/20/ | Office | Audiology | Elisabet Munson MS | | | 2019 | Visit | | [facility] [address] | | | | | | [place] [address] [address] | | | | | | [place] [address] | | | | | | [phone] | | | | | | | | +--------+---------+ + + + | 12/20/ | Office | Otolaryngology | Ulysses Genao MD | | | 2019 | Visit | | [address] [facility] | | | | | | [address] [place], | | | | | | [place] [address] | | | | | | [phone] | | | | | | | | +--------+---------+ + + + documented as of this encounter Visit Diagnoses Not on filedocumented in this encounter"
--- OUTSIDE RECORDS SUMMARY | ~2019-10-17 | XMS | Encounter Summary ---
Demographics + + + | Address | [address] | | | [place] [address] | + + + | Home Phone [...] Providers + +------+ + | Care Station Chief Name | Role | Phone | [...] + + | 02/02/ | Telephone | [facility] | Alanis, | Pain | | 2019 | | MEDICINE [address] [place] [address] | MD [place]rona | | | | | [place] | [address] [place] [address] | | | | | [place] [address] | [place] [address] | | | | | [phone] | [phone] | | | | | | | [...] [facility] [address] | | | | | | [place] [address] | | | | | | [phone] | | | | | | | | +--------+---------+ + + + | 12/20/ | Office | Audiology | Elisabet Munson MS | | | 2019 | Visit | | [facility] [address] | | | | | | [place] [address] [address] | | | | | | [place] [address] | | | | | | [phone] | | | | | | | | +--------+---------+ + + + | 12/20/ | Office | Otolaryngology | Ulysses Genao MD | | | 2019 | Visit | | [address] [facility] | | | | | | [address] [place], | | | | | | [place] [address] | | | | | | [phone] | | | | | | | | +--------+---------+ + + + documented as of this encounter Visit Diagnoses Not on filedocumented in this encounter"
--- OUTSIDE RECORDS SUMMARY | ~2019-10-17 | XMS | Encounter Summary ---
Demographics + + + | Address | [address] | | | [place] [address] | + + + | Home Phone [...] Providers + +------+ + | Care Industrial Organization Manager Name | Role | Phone | [...] | | | [facility] | [place], [place] | | | | | [address] | [address] | | | | | [address] | [phone] | | | | | Physician's [place] | | | | | | Physician's | | | | | | [place], | | | | | | [place] [address] | | | | | | [phone] | | | +--------+---------+ + + + [...]
--- OUTSIDE RECORDS SUMMARY | ~2019-10-17 | XMS | Encounter Summary ---
Demographics + + + | Address | [address] | | | [place] [address] | + + + | Home Phone [...] Providers + +------+ + | Care Menagerie Caretaker Name | Role | Phone | [...] + + | 02/22/ | Telephone | [facility] | Alanis, | Medication Question | | 2018 | | MEDICINE [address] [place] [address] | MD Petrona | | | | | [facility] | [address] [place] [address] | | | | | [place] [address] | [place] [address] | | | | | [phone] | [phone] | | | | | | | [...] | | | | | [place] [address] | | | | | | [phone] | | | | | | | | +--------+---------+ + + + | 12/20/ | Office | Audiology | Elisabet Munson MS | | | 2019 | Visit | | [facility] [address] | | | | | | [address] [place] | | | | | | [place] [address] | | | | | | [phone] | | | | | | | | +--------+---------+ + + + | 12/20/ | Office | Otolaryngology | Ulysses Genao MD | | | 2020 | Visit | | [address] [facility] | | | | | | [address] [place], | | | | | | [place] [address] | | | | | | [phone] | | | | | | | | +--------+---------+ + + + documented as of this encounter Visit Diagnoses Not on filedocumented in this encounter"
--- OUTSIDE RECORDS SUMMARY | ~2019-10-17 | XMS | Encounter Summary ---
Demographics + + + | Address | [address] | | | [place] [address] | + + + | Home Phone [...] Team Providers + +------+ + | Care Beet End Supervisor Name | Role | Phone | [...] + | 12/10/ | Office | [facility] | Alanis, | Elevated liver | | 2018 | Visit | MEDICINE [address] | MD Petrona | enzymes (Primary | | | | [address] [place] | [address] [facility] | Dx); Limb cramps; | | | | [place] [address] | [place] [address] | Physical | | | | [phone] | [phone] | deconditioning; | | | | | [...] is interested in doing physical therapy in [place], pool therapy has helped in the pas [...] (See Comments) Confused and questionable for seizures Jwjzsgiavc-Rlgj-Qffjpvav Cephalexin Hives Duloxetine Migraines and nausea Ketorolac Hives Morphine Swelling Ropinirole Hcl Hives Tramadol Hcl Nausea Only Thsnmuvosp-Rdqh-Gyrjoqci Hives and Rash Ciprofloxacin Hives and Rash [...] Note: Parts of this documentwere created using TickTickTickets speech recognition software. As a r esult, [...] Petrona | | | | | | [address] [place] [address] | | | | | | [place] [address] | | | | | | [phone] | | | | | | | | +--------+---------+ + + + | 12/20/ | Office | Audiology | Elisabet Munson MS | | | 2019 | Visit | | [facility] [address] | | | | | [address] [place] | | | | | | [place] [address] | | | | | | [phone] | | | | | | | | +--------+---------+ + + + | 12/20/ | Office | Otolaryngology | Ulysses Genao MD | | | 2019 | Visit | | [address] | | | | | | [address] [place], | | | | | | [place] [address] | | | | | | [phone] | | | | | | | [...] [address] | [place] | [phone] | | [facility] | | [address] | | | - LABORATORY | | [...] [address] | [place] | [phone] | | [facility] | | [address] | | | - LABORATORY | | [...] test | | | | | | ([id number]). | | | | + + + + + + + + | Specimen | + + | Blood | + + + + + | Narrative | Performed At | + + + | Performed at: [address] [place] [address], | REFERENCE LAB | | [place], [place] [id number] Laser Beam Trim Operator: Bandar Gan MD, Phone: | [facility] | | [phone] | | + + + + + + + + | Performing | Address | City/State/Zipcode | Phone Number | | Organization | | | | + + + + + | REFERENCE LAB | [address] | [place], [place] | [phone] | | [facility] | Asha [place] | [address] | | + + + + + [...] | | | | First dose on [facility] 10/15/17 at 1215 | | | | [...]
--- OUTSIDE RECORDS SUMMARY | ~2019-10-17 | XMS | Encounter Summary ---
Demographics + + + | Address | [address] | | | [place] [address] | + + + | Home Phone [...] Team Providers + +------+ + | Care Specialized Developer Name | Role | Phone | [...] + | 06/25/ | Refill | [facility] | Alanis, | Medication Refill | | 2018 | | MEDICINE [address] [place] [address] | MD Petrona | | | | | [facility] | [address] [place] [address] | | | | | [place] [address] | [place] [address] | | | | | [phone] | [phone] | | | | | | | [...] | | | | | [place] [address] | | | | | | [phone] | | | | | | | | +--------+---------+ + + + | 12/20/ | Office | Audiology | Elisabet Munson MS | | | 2019 | Visit | | [facility] [address] | | | | | | [place] [address] [place] | | | | | | [place] [address] | | | | | | [phone] | | | | | | | | +--------+---------+ + + + | 12/20/ | Office | Otolaryngology | Ulysses Genao MD | | | 2020 | Visit | | [address] [facility] | | | | | | [address] [place], | | | | | | [place] [address] | | | | | | [phone] | | | | | | | | +--------+---------+ + + + documented as of this encounter Visit Diagnoses Not on filedocumented in this encounter"
--- OUTSIDE RECORDS SUMMARY | ~2019-10-17 | XMS | Encounter Summary ---
Demographics + + + | Address | [address] | | | [place] [address] | + + + | Home Phone [...] + +------+ + | Care Occupational Health Technician Name | Role | Phone [...] as of this encounter Progress Notes Interface, Acls Specialist In - 09/13/2005 2:06 AM PST [id number] GEOVANNI SK[facility] Date: 07/03/2005 Clinic: [...] which are pending through the laboratory in [place]. Allergies: PENICILLIN, CODEINE, KEFLEX, SULFA, CIPRO, AND [...] which were done several days ago in [place]. Beto Meeks M.D. PD / HS [id number] / [id number] / [id number] / [id number] cc: Chris Padgett M.D. [facility] Electronically signed by Beto Meeks 09-12-2005 02:23:07 AM documented i n this encounter Plan of Treatment Not on filedocumented as of this encounter Visit Diagnoses Not on filedocumented in this encounter"
--- OUTSIDE RECORDS SUMMARY | ~2019-10-17 | XMS | Encounter Summary ---
Demographics + + + | Address | [address] | | | [place] [address] | + + + | Home Phone [...] Providers + +------+ + | Care Tree Doctor Name | Role | Phone | [...] as of this encounter Progress Notes Interface, Pony Trimmer In - 01/12/2005 6:20 AM PDT JenniferBelinda garner [id number] MED REC NUMBER: [id number] NAME : Belinda Meehan DATE : 1960 DISCHARGE ASSESSMENT AND CASE MANAGEMENT NOTES Chart Reviewed: 2004-12-04 15:29:00 Business Instructor: Lou Jordan RN Preadmission living situation: family If facilty, name: Additional needs assessment: Case Management Initial Assessment and Ongoing Notes: 12/04/2004 15:29 Rec'd referral from IR printout. Pt presenti jen for panniculectomy per Dr. Chris Padgett 12/06/2004. ----- ------- Living Situation: Pt lives w/ her son, Sree in [place], [place]. Pt also has a caregiver from [employer] come in for 8-9 hours per day when her son is not home. Transportation: Pat w/ [employer] [facility] will take pt home (H) (C). Home Health: Pt has an RN from [employer] visit once a month for an [...] [facility] and [facility] William Meeks [facility] metabolic disorder clinic. Narrative: Pt asked [...] or concerns, contact [place]. [place] [id number] documented i n this encounter Plan of Treatment Not on filedocumented as of this encounter Visit Diagnoses Not on filedocumented in this encounter"
--- OUTSIDE RECORDS SUMMARY | ~2019-10-17 | XMS | Encounter Summary ---
Demographics + + + | Address | [address] | | | [place] [address] | + + + | Home Phone [...] Providers + +------+ + | Care Surveillance Systems Engineer Name | Role | Phone [...] Medication requested | | 2007 | | [place] [address] | [address] | (sucralfate | | | | Ave Mailcode: CH4S | [facility] | (CARAFATE) 1 gram | | | | [facility] | [place], [place] | Oral Tablet) | | | | and Healing, | [address] | | | | | [facility] | [phone] | | | | | [place], [place] | | | | | | [address] | | | | | | [phone] | | | +--------+ + + + [...]
--- OUTSIDE RECORDS SUMMARY | ~2019-10-17 | XMS | Encounter Summary ---
Demographics + + + | Address | [address] | | | [place] [address] | + + + | Home Phone [...] Providers + +------+ + | Care Manager Produce Name | Role | Phone | + [...] + + | 11/17/ | Office | [facility] | Alanis, | Bilateral leg edema | | 2018 | Visit | MEDICINE [address] | MD Petrona | (Primary Dx); Venous | | | | Street [place] | [address] [facility] | insufficiency; | | | | [place] [address] | [place] [address] | Fatigue, unspecified | | | | [phone] | [phone] | type | | | | | [...] (See Comments) Confused and questionable for seizures Nohjpkjmcx-Xwod-Wqunnskv Cephalexin Hives Duloxetine Migraines and nausea Ketorolac Hives Morphine Swelling Ropinirole Hcl Hives Tramadol Hcl Nausea Only Iztmtkgcxl-Mxss-Xizrzpmu Hives and Rash Ciprofloxacin Hives and Rash [...] Note: Parts of this documentwere created using mon.ki speech recognition software. As a r esult, [...] | | | | | [place] [address] | | | | | | [phone] | | | | | | | | +--------+---------+ + + + | 12/20/ | Office | Audiology | Elisabet Munson MS | | 2019 | Visit | | [facility] | | | | | | [place] [address] [place] | | | | | | [place] [id number] | | | | | | [phone] | | | | | | | | +--------+---------+ + + + | 12/20/ | Office | Otolaryngology | Ulysses Genao MD | | | 2020 | Visit | | [address] [facility] | | | | | | [address] [place], | | | | | | [place] [address] | | | | | | [phone] | | | | | | | [...] [address] | [place] | [phone] | | [facility] | | [address] | | | - LABORATORY | | [...] | [address] | [place], [place] | [phone] | | [facility] | | [address] | | | - LABORATORY | | [...] | third generation TSH | uIU/mL | [facility] | | | | test. | | [...] + | [address] | [address] | [place] | [phone] | | [facility] | | [address] | | | - LABORATORY | | [...] | 0.72 | 0.60 - 1.30 | [facility] | | | | | mg/dL | [facility] | | | | | | MEDICAL | | | | | | CENTER - | | | | | | LABORATORY | | + + + + + + | eGFR if not | >60Comment: GLOMERULAR | >=60 | NAPLES | | | | FILTRATION | mL/min/1.73m2 | [facility] | | | SAMMARINESE | RATE,ESTIMATED | | MEDICAL | | | | mL/min/1.74l7Iopk than | | CENTER - | | [...] [address] | [place] | [phone] | | [facility] | | [address] | | | - LABORATORY | | [...] ST. | [address] | [place] | [phone] | | [facility] | | [address] | | | - LABORATORY | | [...]
--- OUTSIDE RECORDS SUMMARY | ~2019-10-17 | XMS | Encounter Summary ---
Demographics + + + | Address | [address] | | | [place] [address] | + + + | Home Phone [...] + +------+ + | Care Motor Vehicle Compliance Analyst Name | Role | Phone | [...] + + | 07/24/ | Office | [facility] Comprehensive | Delfina Lambert, | Chronic Bilateral | | 2008 | Visit | Pain Center at | ANP | Shoulder Pain | | | | [facility] | | (Primary Dx); Spinal | | | | [address] | | Fusion Lumbar spine | | | | Mailcode: CH15P | | ; LBP (Low Back | | | | [facility] | | Pain); Osteopenia; | | | | and Healing, | | Fibromyalgia | | | | Building | | syndrome 729.1; | | | | Floor [place], [place] | | Major Depressive | | | | [address] | | Disorder, Recurrent | | | | [phone] | | Episode, Moderate | | | [...] Belinda Meehan is a 48 y.o. female [facility] Comprehensive Pain Center Return Visit Chief [...] drawing has be completed, which I reviewed. [facility] Brief Pain Inventory: (ten= worst possible [...] 300 mg) by oral route once daily gfqmczqsfj-cyjrhdxnrpovi-vmnvncwd (FIORICET) 50-325-40 mg Oral Tablet take 2 [...] 278 01/18 Paniculectomy Hx lumbar fusion 05/2008 L1-K4bvimoj with bone spur removals Family History Problem [...] plain x rays of bilateral shoulders, today [facility] building third floor, I reviewed the [...] COMPRE[facility] Mail code CH 4P [facility] [address] [place] [address] Ailyn Bello - 02/2009 3:13 PM [...] | | + +---------+ + + | [facility] DEPARTMENT OF | | | | [...]
--- OUTSIDE RECORDS SUMMARY | ~2019-10-17 | XMS | Encounter Summary ---
Demographics + + + | Address | [address] | | | [place] [address] | + + + | Home Phone [...] Providers + +------+ + | Care Shop Mechanic Helper Name | Role | Phone [...] + + | 03/25/ | Refill | [facility] | Alanis, | Medication Refill | | 2016 | | MEDICINE [address] [place] [address] | MD Petrona | | | | | [facility] | [address] [place] [address] | | | | | [place] [address] | [place] [address] | | | | | [phone] | [phone] | | | | | | | [...] | | | | | [place] [address] | | | | | | [phone] | | | | | | | | +--------+---------+ + + + | 12/20/ | Office | Audiology | Elisabet Munson MS | | | 2019 | Visit | | [facility] [address] | | | | | | [place] [address] [place] | | | | | | [place] [address] | | | | | | [phone] | | | | | | | | +--------+---------+ + + + | 12/20/ | Office | Otolaryngology | Ulysses Genao MD | | | 2020 | Visit | | [address] [facility] | | | | | | [address] [place], | | | | | | [place] [address] | | | | | | [phone] | | | | | | | | +--------+---------+ + + + documented as of this encounter Visit Diagnoses Not on filedocumented in this encounter"
--- OUTSIDE RECORDS SUMMARY | ~2019-10-17 | XMS | Encounter Summary ---
Demographics + + + | Address | [address] | | | [place] [address] | + + + | Home Phone [...] Providers + +------+ + | Care Watch Adjuster Name | Role | Phone | [...] | | | | [facility] | [place], [place] | | | | | [address] | [address] | | | | | [place], [place] | [phone] | | | | | [address] | | | | | | [phone] | | | +--------+ + + + [...]
--- OUTSIDE RECORDS SUMMARY | ~2019-10-17 | XMS | Encounter Summary ---
Demographics + + + | Address | [address] | | | [place] [address] | + + + | Home Phone [...] Providers + +------+ + | Care Enterprise Systems Manager Name | Role | Phone | [...] + + | 09/02/ | Telephone | [facility] | Alanis, | Paperwork | | 2018 | | MEDICINE [address] [place] [address] | MD Petrona | | | | | [facility] | [address] [place] [address] | | | | | [place] [address] | [place] [address] | | | | | [phone] | [phone] | | | | | | | [...] | | | | | [place] [address] | | | | | | [phone] | | | | | | | | +--------+---------+ + + + | 12/20/ | Office | Audiology | Elisabet Munson MS | | | 2019 | Visit | | [facility] [address] | | | | | | [place] [address] [place] | | | | | | [place] [address] | | | | | | [phone] | | | | | | | | +--------+---------+ + + + | 12/20/ | Office | Otolaryngology | Ulysses Genao MD | | | 2020 | Visit | | [address] [facility] | | | | | | [address] [place], | | | | | | [place] [address] | | | | | | [phone] | | | | | | | | +--------+---------+ + + + documented as of this encounter Visit Diagnoses Not on filedocumented in this encounter"
--- OUTSIDE RECORDS SUMMARY | ~2019-10-17 | XMS | Encounter Summary ---
Demographics + + + | Address | [address] | | | [place] [address] | + + + | Home Phone [...] Providers + +------+ + | Care Business Specialist Name | Role | Phone | [...] + + | 04/08/ | Telephone | [facility] Division of | Carlos Arreola, | Swelling | | 2005 | | Gastroenterology/Hep | [address] | (ANDREEA) | | | | atology [address] | | | | | [address] | [place] [address] | | | | | Mailcode: PV310 | [phone] | | | | | [facility] | | | | | | [address] | | | | | | [place], [place] | | | | | | [address] | | | | | | [phone] | | | +--------+ + + + [...]
--- OUTSIDE RECORDS SUMMARY | ~2019-10-17 | XMS | Encounter Summary ---
Demographics + + + | Address | [address] | | | [place] [address] [...] Providers + +------+ + | Care Order Taker Name | Role | Phone [...] Required | | | i, | [address] [place] | | | | | osteoporosis | [address] | [place], | | | | | without | , MD [address] | [place] [address] | | | | | current | [address] | Phone: | | | | | pathological | [place], | [phone] | | | | | fracture | [place] | Fax: | | | | | | [address] | [phone] | | | | | | Phone: | | | | | | | [phone] | | | | | | | Fax: | | | | | | | [phone] | | +--------+ + + + + [...] Required | | | i, | [place] | | | | | osteoporosis | Sulaiman-Russell | [place], | | | | | without | , MD [address] | [place] [address] | | | | | current | [address] | Phone: | | | | | pathological | [place], | [phone] | | | | | fracture | [place] | Fax: | | | | | | [address] | [phone] | | | | | | Phone: | | | | | | | [phone] | | | | | | | Fax: | | | | | | | [phone] | | +--------+ + + + + + Encounter Details +--------+ + + + + | Date | Type | Department | Care Team | Description | +--------+ + + + + | 10/14/ | Hospital | [facility] | Alanis, | Age-related | | 2019 | Encounter | MED CTR OP INFUSION | MD Petrona | osteoporosis without | | | | [address] | [address] [facility] | current | | | | [place] | [place] [address] | pathological | | | | [address] | [phone] | fracture (Primary | | | | [phone] | | Dx) | +--------+ + + [...] | | | | | [place] [address] | | | | | | [phone] | | | | | | | | +--------+---------+ + + + | 12/20/ | Office | Audiology | Elisabet Munson MS | | 2019 | Visit | | [facility] | | | | | | [facility] [place] [place] | | | | | | [place] [address] | | | | | | [phone] | | | | | | | | +--------+---------+ + + + | 12/20/ | Office | Otolaryngology | Ulysses Genao MD | | | 2020 | Visit | | [address] [facility] | | | | | | [address] [place], | | | | | | [place] [address] | | | | | | [phone] | | | | | | | [...]
--- OUTSIDE RECORDS SUMMARY | ~2019-10-17 | XMS | Encounter Summary ---
Demographics + + + | Address | [address] | | | [place] [address] | + + + | Home Phone [...] as of this encounter Progress Notes Interface, As400 Developer In - 01/12/2005 6:46 AM [employer] Date: 11/27/2003 Clinic: Surgery Clinic Subjective: This patient of Dr. Chris Padgett walks into clinic today to discuss her laparoscopic incisions and a lesion on her lower back. She was discharged from [facility] approximately 36 hours ago following [...] discharge and would like to proceed to [place], where her home is. She agrees to [...] additional questions. Liliya Kirkpatrick. NELLY / SHARIF [id number] / [id number] / [id number] / [id number] Tdocumented in this encounter Plan of Treatment Not on filedocumented as of this encounter Visit Diagnoses Not on filedocumented in this encounter"
--- OUTSIDE RECORDS SUMMARY | ~2019-10-17 | XMS | Encounter Summary ---
Demographics + + + | Address | [address] | | | [place] [address] | + + + | Home Phone [...] Providers + +------+ + | Care Cad Intern Name | Role | Phone | [...] 2018 | | GASTROENTEROLOGY | [address] [facility] | | | | | [address] [facility] | [place], [place] | | | | | [address] [place], [place] | [address] | | | | | [address] | [phone] | | | | | [phone] | | | +--------+ + + + [...] | [facility] [address] [place] | | | | | | [place] [address] | | | | | | [phone] | | | | | | | | +--------+---------+ + + + | 12/20/ | Office | Audiology | Elisabet Munson MS | | | 2019 | Visit | | [facility] [address] | | | | | | [place] [address] [place] | | | | | | [place] [address] | | | | | | [phone] | | | | | | | | +--------+---------+ + + + | 12/20/ | Office | Otolaryngology | Ulysses Genao MD | | | 2020 | Visit | | [address] [facility] | | | | | | [address] [place], | | | | | | [place] [address] | | | | | | [phone] | | | | | | | | +--------+---------+ + + + documented as of this encounter Visit Diagnoses Not on filedocumented in this encounter"
--- OUTSIDE RECORDS SUMMARY | ~2019-10-17 | XMS | Encounter Summary ---
Demographics + + + | Address | [address] | | | [place] [address] | + + + | Home Phone [...] + + | 03/01/ | Telephone | [facility] | Alanis, | Other | | 2018 | | MEDICINE [address] [place] [address] | MD Petrona | | | | | [facility] | [address] [place] [address] | | | | | [place] [address] | [place] [address] | | | | | [phone] | [phone] | | | | | | | [...] | | | [facility] [address] [place] | | | | | | [place] [address] | | | | | | [phone] | | | | | | | | +--------+---------+ + + + | 12/20/ | Office | Audiology | Elisabet Munson MS | | | 2019 | Visit | | [facility] [address] | | | | | | [place] [address] [address] | | | | | | [place] [address] | | | | | | [phone] | | | | | | | | +--------+---------+ + + + | 12/20/ | Office | Otolaryngology | Ulysses Genao MD | | | 2019 | Visit | | [address] [facility] | | | | | | [address] [place], | | | | | | [place] [address] | | | | | | [phone] | | | | | | | | +--------+---------+ + + + documented as of this encounter Visit Diagnoses Not on filedocumented in this encounter"
--- OUTSIDE RECORDS SUMMARY | ~2019-10-17 | XMS | Encounter Summary ---
Demographics + + + | Address | [address] | | | [place] [address] | + + + | Home Phone [...] Providers + +------+ + | Care Quality System Manager Name | Role | Phone | [...] | Pain | Diagnoses | Miracle, | [place], | | | | Management | LBP (low | NIHARIKA Jean | Lukasz Rhodes, PhD | | | | | back pain) | [address] | [address] | | | | | DJD | [address] | Ave | | | | | (degenerativ | [place], [place] | [place] | | | | | e joint | [address] | [address] | | | | | disease) of | | Phone: | | | | | knee Knee | | [phone] | | | | | pain Major | | Fax: | | | | | depressive | | [phone] | | | | | disorder, | [...] | | | | Mailcode: 15P | [place], [place] | Episode, Mild (HCC); | | | | [facility] | [address] | LBP (Low Back | | | | and Healing, | [phone] | Pain); Migraine | | | | | | Headache; Adjustment | | | | Floor [place], [place] | | Disorder with | | | | [address] | | Anxiety | | | | [phone] | | | +--------+---------+ + + + [...] plans for her surgical recovery period. Diagnosis: Montgomery I: 1. (296.31) Major depressive disorder, recurrent, mild. 2. (309.24) Adjustment disorder with anxiety. 3. 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 Montgomery II: Deferred Montgomery III: abdominal pain, migraine headache, low back pain. Montgomery IV: low finances Montgomery V: GAF 55-60 Plan: return with next medical follow-up appointment. Check mood, pain, relaxation, activ ity, distraction, eating. Ask about headaches, fainting, surgery. Continue cognitive/behav ioral therapy. Total time spent with patient was approximately 45 minutes. LUKASZ CHARLES PHD [facility] [address] [facility] [address] [address] documented in this encount er Plan of Treatment + + +--------+ + + | Name | Type | Priori | Associated Diagnoses | Order Schedule | | | | ty | | | + + +--------+ + + | RI PSYCHOTHERPY, | Procedures | Routin | Major Depressive | Ordered: 04/13/2008 | | OFFICE (26-07) | | e | Disorder, Recurrent | [...]
--- OUTSIDE RECORDS SUMMARY | ~2019-10-17 | XMS | Encounter Summary ---
Demographics + + + | Address | [address] | | | [place] [address] | + + + | Home Phone [...] Providers + +------+ + | Care Live Games Dealer Name | Role | Phone [...] Rd | | | | | | [place], [place] | | | | | | [address] | | | +--------+ + + + [...]
--- OUTSIDE RECORDS SUMMARY | ~2019-10-17 | XMS | Encounter Summary ---
Demographics + + + | Address | [address] | | | [place] [address] | + + + | Home Phone [...] Providers + +------+ + | Care Back Feeder Plywood Layup Line Name | Role | Phone | [...] | | | | L223A Physician's | [place], [place] | | | | | [address] | [address] | | | | | [place], [place] | [phone] | | | | | [address] | | | | | | [phone] | | | +--------+ + + + [...]
--- OUTSIDE RECORDS SUMMARY | ~2019-10-17 | XMS | Encounter Summary ---
Demographics + + + | Address | [address] | | | [place] [address] | + + + | Home Phone [...] + +------+ + | Care Screw Machine Repairer Name | Role | Phone [...] | | | | | | [place], | | | | | | | [place] | | | | | | | [address] | | | | | | | Phone: | | | | | | | [phone] | | | | | | | Fax: | | | | | | | [phone] | +--------+--------+ + + + + Encounter Details +--------+---------+ + + + | Date | Type | Department | Care Team | Description | +--------+---------+ + + + | 11/10/ | Office | Digestive Health | Chris Padgett, | Status Post | | 2007 | Visit | [place] [address] | [address] | Bariatric Surgery; | | | | Ave Mailcode: CH4S | [address] | Abdominal Pain, | | | | Center [facility] | [place], [place] | Other Specified Site | | | | and Healing, | [address] | | | | | Building | [phone] | | | | | Floor [place], [place] | | | | | | [address] | | | | | | [phone] | | | +--------+---------+ + + + [...]
--- OUTSIDE RECORDS SUMMARY | ~2019-10-17 | XMS | Encounter Summary ---
Demographics + + + | Address | [address] | | | [place] [address] | + + + | Home Phone [...] + +------+ + | Care Station Mechanic Helper Name | Role | Phone [...] | | | | | Procedures | [place], [place] | [address] [facility] | | | | | CONSULT TO | [address] | [address] | | | | | SURGERY - | | Rd [place], | | | | | GENERAL | | [place] | | | | | | | [address] | | | | | | | Phone: | | | | | | | [phone] | | | | | | | Fax: | | | | | | | [phone] | +--------+--------+ + + + + Encounter Details +--------+ + + + + | Date | Type | Department | Care Team | Description | +--------+ + + + + | 08/31/ | Docking Pilot | Digestive Health | Nuris Cardenas ANP | Hemorrhoid (Primary | | 2008 | | Center [address] | | Dx) | | | | [address] | | | | | | Mailcode: N[place]709 | | | | | | [facility] | | | | | | [place], [place] | | | | | | [address] | | | | | | [phone] | | | +--------+ + + + [...]
--- OUTSIDE RECORDS SUMMARY | ~2019-10-17 | XMS | Encounter Summary ---
Demographics + + + | Address | [address] | | | [place] [address] | + + + | Home Phone [...] Providers + +------+ + | Care Salesperson Furs Name | Role | Phone | + [...] | | Center at [facility] [address] | CIRCULAR SAW OPERATOR [address] | | | | | [place] | , [address] | | | | | Mailcode: Center | [place], [place] | | | | | [facility] and | [address] | | | | | Healing, Building 2 | [phone] | | | | | [place], [place] | | | | | | [address] | | | | | | [phone] | | | +--------+ + + + [...]
--- OUTSIDE RECORDS SUMMARY | ~2019-10-17 | XMS | Encounter Summary ---
Demographics + + + | Address | [address] | | | [place] [address] | + + + | Home Phone [...] Team Providers + +------+ + | Care Planimeter Operator Name | Role | Phone | [...] + + | 10/19/ | Telephone | [facility] | Alanis, | Lab Order | | 2017 | | MEDICINE [address] [place] [address] | MD Petrona | | | | | [facility] | [address] [place] [address] | | | | | [place] [address] | [place] [address] | | | | | [phone] | [phone] | | | | | | | [...] | | | | | [place] [address] | | | | | | [phone] | | | | | | | | +--------+---------+ + + + | 12/20/ | Office | Audiology | Elisabet Munson MS | | | 2019 | Visit | | [facility] [address] | | | | | | [place] [address] [place] | | | | | | [place] [address] | | | | | | [phone] | | | | | | | | +--------+---------+ + + + | 12/20/ | Office | Otolaryngology | Ulysses Genao MD | | | 2020 | Visit | | [address] [facility] | | | | | | [address] [place], | | | | | | [place] [address] | | | | | | [phone] | | | | | | | | +--------+---------+ + + + documented as of this encounter Visit Diagnoses Not on filedocumented in this encounter"
--- OUTSIDE RECORDS SUMMARY | ~2019-10-17 | XMS | Encounter Summary ---
Demographics + + + | Address | [address] | | | [place] [address] | + + + | Home Phone [...] + +------+ + | Care Air Brake Operator Name | Role | Phone | [...] + | 05/30/ | Refill | [facility] | Alanis, | Medication Refill | | 2016 | | MEDICINE [address] [place] [address] | MD Petrona | | | | | [facility] | [address] [place] [address] | | | | | [place] [address] | [place] [address] | | | | | [phone] | [phone] | | | | | | | [...] | | | | | [place] [address] | | | | | | [phone] | | | | | | | | +--------+---------+ + + + | 12/20/ | Office | Audiology | Elisabet Munson MS | | | 2019 | Visit | | [facility] [address] | | | | | | [place] [address] [place] | | | | | | [place] [address] | | | | | | [phone] | | | | | | | | +--------+---------+ + + + | 12/20/ | Office | Otolaryngology | Ulysses Genao MD | | | 2020 | Visit | | [address] [facility] | | | | | | [address] [place], | | | | | | [place] [address] | | | | | | [phone] | | | | | | | | +--------+---------+ + + + documented as of this encounter Visit Diagnoses Not on filedocumented in this encounter"
--- OUTSIDE RECORDS SUMMARY | ~2019-10-17 | XMS | Encounter Summary ---
Demographics + + + | Address | [address] | | | [place] [address] | + + + | Home Phone [...] Providers + +------+ + | Care Process Inspector Name | Role | Phone [...] | | | central | [address] | HOSPITAL | | | | | origin, | [address] | [address] | | | | | unspecified | [place] | AVE | | | | | laterality | [place], [place] | [place] | | | | | Procedures | [address] | [address] | | | | | MRI Brain w | Phone: | Phone: | | | | | wo Contrast | [phone] | [phone] | | | | | [place] MRI | Fax: | Fax: | | | | | BRAIN COMBO | [phone] | [phone] | +--------+--------+ + + + + Reason [...] | escu | [address] | [place] [address] | | | | | Procedures | [place], | Phone: | | | | | OFFICE VISIT | [place] | [phone] | | | | | REGULAR | [address] | Fax: | | | | | | Phone: | [phone] | | | | | | [phone] | | | | | | | Fax: | | | | | | | [phone] | | +--------+--------+ + + + + Encounter Details +--------+---------+ + + + | Date | Type | Department | Care Team | Description | +--------+---------+ + + + | 10/18/ | Office | [facility] | Ulysses Dsouza MD | Vertigo of central | | 2015 | Visit | OTOLARYNGOLOGY [address] | [address] | origin, unspecified | | | | [address] | [address] [place], | laterality (Primary | | | | [place], [place] | [place] [address] | Dx) | | | | [address] | [phone] | | | | | [phone] | | | +--------+---------+ + + + [...] MD - 10/18/2014 10:50 AM PDT [facility] OTOLARYNGOLOGY [address] [facility] [address] OFFICE NOTE ULYSSES DSOUZA MD Patient: BELINDA MEEHAN Admitting: MR #: [id number] LOC: PT TYPE: Adm Date: 10/18/2014 : [...] 10/18/2014 10:50:30 Transcribed on 10/18/2014 11:06:48 by [facility] job# [id number] Confirmation #: [id number] signed by Ulysses Dsouza MD at 10/18/2014 12:48 PM PDT Ulysses Dsouza MD - 10/18/2014 10:45 AM PDTSee dictation # [id number] signed by Ulysses Dsouza MD at 10/18/2014 [...] | | | | | [place] [address] | | | | | | [phone] | | | | | | | | +--------+---------+ + + + | 12/20/ | Office | Audiology | Elisabet Munson MS | | | 2019 | Visit | | [facility] [address] | | | | | | [address] [place] [place] | | | | | | [place] [address] | | | | | | [phone] | | | | | | | | +--------+---------+ + + + | 12/20/ | Office | Otolaryngology | Ulysses Dsouza MD | | | 2019 | Visit | | [address] [facility] | | | | | | [address] [place], | | | | | | [place] [address] | | | | | | [phone] | | | | | | | [...]
--- OUTSIDE RECORDS SUMMARY | ~2019-10-17 | XMS | Encounter Summary ---
Demographics + + + | Address | [address] | | | [place] [address] | + + + | Home Phone [...] Providers + +------+ + | Care Liquid Yeast Supervisor Name | Role | Phone [...] | | | | sciatica | [place] [address] | | | | | | S/P lumbar | Phone: | | | | | | fusion | [phone] | | | | | | Sacroiliac | Fax: | | | | | | inflammation | [phone] | | | | | | (HCC) [...] | | | | sciatica | [place] [address] | [address] | | | | | S/P lumbar | Phone: | Phone: | | | | | fusion | [phone] | [phone] | | | | | Sacroiliac | Fax: | Fax: | | | | | inflammation | [phone] | [phone] | | | | | ([facility]) | | | | | [...] | | sciatica | [address] | [address] Phone: | | | | | | [place], | [phone] | | | | | | [place] | Fax: | | | | | | [address] | [phone] | | | | | | Phone: | | | | | | | [phone] | | | | | | | Fax: | | | | | | | [phone] | | +--------+ + + + + + Encounter Details +--------+---------+ + + + | Date | Type | Department | Care Team | Description | +--------+---------+ + + + | 09/23/ | Office | [facility] | Lencho Rivas, | Sacroiliac | | 2019 | Visit | PHYSIATRY [address] | PA-C [address] | inflammation (HCC) | | | | [address] [place] | [address] [place] | (Primary Dx); Acute | | | | [place] | [place] [address] | midline low back | | | | [address] | [phone] | pain with bilateral | | | | [phone] | | sciatica; S/P lumbar | | [...] 9:20 AM PDTReferral to michelle james ([facility]). Referral to massage therapy. Due to [...] press against a nerve. Date Last Reviewed: 08/13/201719990934-3181 [employer]. [address] [place] [address]25. All righ ts reserved. This information is not intended as a substitute for professional medical care. Always follow your healthcare professional's instructions. documented in this encounter Progress Notes Lencho Rivas PA-C - 09/23/2018 9:20 AM PDTFormatting of this note might be different fro m the original. Lencho Rivas PA-C [address] [place] [address], [address] [place] [address] FAX: CHIEF COMPLAINT: Chief Complaint Patient presents [...] migraine COPD (chronic obstructive pulmonary disease) ([facility]) Depression Diarrhea Dumping syndrome Fall at home Fatigue fracture of vertebra Fibromyalgia Full dentures GERD (gastroesophageal reflux disease) Glaucoma Hyperparathyroidism ([facility]) Hypothyroidism IBS (irritable bowel syndrome) Idiopathic scoliosis Leg edema Low back pain Lumbar postlaminectomy syndrome Lumbar radiculopathy primarily right 01/04/2015 Meniere syndrome Migraine with aura Migraines Muscle cramping Muscle spasm Myalgia Nausea Nonalcoholic hepatosteatosis Obesity Opioid dependence ([facility]) Orthostatic hypotension OLIVER (obstructive sleep apnea) Osteoarthritis, generalized Osteopenia Osteoporosis Palpitations Peripheral neuropathy Rheumatoid arthritis ([facility]) Right arm pain 01/04/2015 RLS (restless legs syndrome) S/P lumbar fusion 01/04/2015 Scoliosis Sleep apnea Spondylosis with myelopathy, lumbar region Stroke ([facility]) Syncope Tremor Type II or unspecified type diabetes mellitus with other specified manifestations, not stated as uncontrolled 05/04/2017 Vitamin D deficiency PAST SURGICAL HISTORY: Past Surgical History: Procedure Laterality Date ADENOIDECTOMY APPENDECTOMY BREAST LUMPECTOMY Left 2002 CARPAL TUNNEL RELEASE 2002 SECTION CHOLECYSTECTOMY 2004 COLONOSCOPY N/A 12/18/2017 Procedure: COLONOSCOPY; Surgeon: Luther Brito MD; Location: [facility] DILATION AND CURETTAGE OF UTERUS ELBOW SURGERY FINGER TRIGGER RELEASE 2003 FINGER TRIGGER RELEASE 2010 GASTRIC BYPASS SURGERY 2004 HYSTERECTOMY 05/14/1980 JOINT REPLACEMENT Bilateral 2007 2008 KNEE ARTHROSCOPY 2005 LAPAROSCOPY 01/27/2015 LAPAROTOMY 2008 ROTATOR CUFF REPAIR 2005 SPINE SURGERY TONSILLECTOMY 1964 UPPER GASTROINTESTINAL ENDOSCOPY N/A 12/18/2017 Procedure: EGD; Surgeon: Luther Brito MD; Location: [facility] MEDICAL PROCEDURE UNIT CURRENT MEDICATIONS: Current [...] (See Comments) Confused and questionable for seizures Ekhlkdxrbi-Zpcb-Bainseyk Hives and Rash Cephalexin Hives Ciprofloxacin Hives [...] has no apparent deficits with short or penitentiary memory. Cranial nerves 2-12 appear grossly intact. [...] currently enrolled in a pain clinic in [place], [place]. 5) Patient will follow up with [...] | | | | | [place] [address] | | | | | | [phone] | | | | | | | | +--------+---------+ + + + | 12/20/ | Office | Audiology | Elisabet Munson MS | | | 2019 | Visit | | [facility] [address] | | | | | | [address] [place] | | | | | | [place] [address] | | | | | | [phone] | | | | | | | | +--------+---------+ + + + | 12/20/ | Office | Otolaryngology | Ulysses Genao MD | | | 2019 | Visit | | [address] [place] | | | | | | [address] [place], | | | | | | [place] [address] | | | | | | [phone] | | | | | | | [...]
--- OUTSIDE RECORDS SUMMARY | ~2019-10-17 | XMS | Encounter Summary ---
Demographics + + + | Address | [address] | | | [place] [address] | + + + | Home Phone [...] Providers + +------+ + | Care Computer System Technician Name | Role | Phone [...] as of this encounter Progress Notes Interface, Sleep Lab Technician In - 01/11/2005 6:26 PM PDTClinic [...] bypass surgery. Dwaine Al M.D. LEDY / [id number] / [id number] / [id number] / Tdocumented in this encounter Plan of Treatment Not on filedocumented as of this encounter Visit Diagnoses Not on filedocumented in this encounter"
--- OUTSIDE RECORDS SUMMARY | ~2019-10-17 | XMS | Encounter Summary ---
Demographics + + + | Address | [address] | | | [place] [address] | + + + | Home Phone [...] Providers + +------+ + | Care Plow And Boring Machine Tender Name | Role | Phone [...]
--- OUTSIDE RECORDS SUMMARY | ~2019-10-17 | XMS | Encounter Summary ---
Demographics + + + | Address | [address] | | | [place] [address] | + + + | Home Phone [...] Providers + +------+ + | Care Lead Tank Mechanic Name | Role | Phone [...] + + | 02/18/ | Refill | [facility] | Alanis, | Results, Imaging | | 2017 | | MEDICINE [address] [place] [address] | MD Petrona | | | | | [facility] | [address] [address] | | | | | [place] [address] | [place] [address] | | | | | [phone] | [phone] | | | | | | | [...] | | | | | [place] [address] | | | | | | [phone] | | | | | | | | +--------+---------+ + + + | 12/20/ | Office | Audiology | Elisabet Munson MS | | | 2019 | Visit | | [facility] [address] | | | | | | [address] [place] [address] [place] | | | | | | [place] [address] | | | | | | [phone] | | | | | | | | +--------+---------+ + + + | 12/20/ | Office | Otolaryngology | Ulysses Genao MD | | | 2020 | Visit | | [address] | | | | | | [address] [place], | | | | | | [place] [address] | | | | | | [phone] | | | | | | | | +--------+---------+ + + + documented as of this encounter Visit Diagnoses Not on filedocumented in this encounter"
--- OUTSIDE RECORDS SUMMARY | ~2019-10-17 | XMS | Encounter Summary ---
Demographics + + + | Address | [address] | | | [place] [address] | + + + | Home Phone [...] Team Providers + +------+ + | Care Wildlife Conservation Professor Name | Role | Phone | [...] as of this encounter Progress Notes Interface, Folder Tier In - 12/11/2005 2:05 AM PDT [id number] GEOVANNI SKELTON J [id number] Clinic Date: 11/27/2005 Clinic: Rheumatology Primary Care [...] 6 months. Caitlin Rivera M.S., F.N.P. / [id number] / [id number] / [id number] / [id number] cc: Pedrito Gutierrez M.D. [address] [place] [address] Electronically signed by Caitlin Rivera 12-10-2005 09:27:21 AM documented i n this encounter Plan of Treatment Not on filedocumented as of this encounter Visit Diagnoses Not on filedocumented in this encounter"
--- OUTSIDE RECORDS SUMMARY | ~2019-10-17 | XMS | Encounter Summary ---
Demographics + + + | Address | [address] | | | [place] [address] | + + + | Home Phone [...] Providers + +------+ + | Care Market Risk Specialist Name | Role | Phone | [...] + + | 04/15/ | Telephone | [facility] | Alanis, | Other (Pain clinic) | | 2019 | | MEDICINE [address] [place] [address] | MD Petrona | | | | | [facility] | [address] [place] [address] | | | | | [place] [address] | [place] [address] | | | | | [phone] | [phone] | | | | | | | [...] | | | | | [place] [address] | | | | | | [phone] | | | | | | | | +--------+---------+ + + + | 12/20/ | Office | Audiology | Elisabet Munson MS | | | 2019 | Visit | | [facility] [address] | | | | | | [address] [place] | | | | | | [place] [address] | | | | | | [phone] | | | | | | | | +--------+---------+ + + + | 12/20/ | Office | Otolaryngology | Ulysses Genao MD | | | 2020 | Visit | | [address] | | | | | | [address] [place], | | | | | | [place] [address] | | | | | | [phone] | | | | | | | | +--------+---------+ + + + documented as of this encounter Visit Diagnoses Not on filedocumented in this encounter"
--- OUTSIDE RECORDS SUMMARY | ~2019-10-17 | XMS | Encounter Summary ---
Demographics + + + | Address | [address] | | | [place] [address] [...] Providers + +------+ + | Care Hedis Analyst Name | Role | Phone | [...] Naeem Mcrae | | | | | [facility] | [place], [place] | | | | | and Healing, | [address] | | | | | [facility] | [phone] | | | | | Floor [place], [place] | | | | | | [address] | | | | | | [phone] | | | +--------+ + + + [...]
--- OUTSIDE RECORDS SUMMARY | ~2019-10-17 | XMS | Encounter Summary ---
Demographics + + + | Address | [address] | | | [place] [address] | + + + | Home Phone [...] as of this encounter Progress Notes Interface, Postage Machine Operator In - 01/13/2005 9:03 AM PDT [id number] GEOVANNI Barnes [facility] Date: 01/02/2005 Clinic: [facility] Subjective: Ms. Meehan presents today on a walk-in basis for evaluation of some discharge from her panniculectomy incisions over her medial thighs. She reports that she was in town today from [place], [place], to get some labs drawn at [facility] and decided to stop by the clinic [...] Sree Riley M.D. Chris Padgett M.D. / [id number] / [id number] / [id number] / [id number] C: 01/08/2005 cmw documented i n this encounter Plan of Treatment Not on filedocumented as of this encounter Visit Diagnoses Not on filedocumented in this encounter"
--- OUTSIDE RECORDS SUMMARY | ~2019-10-17 | XMS | Encounter Summary ---
Demographics + + + | Address | [address] | | | [place] [address] | + + + | Home Phone [...] Providers + +------+ + | Care Maintenance Associate Name | Role | Phone | [...] 12/04/ | Office | [facility] | Lukasz Charles, | Major Depressive | | 2006 | Visit | [address] | PhD [address] | Disorder, Recurrent | | | | Mailcode: 15 | [place], [place] | Episode, Moderate | | | | [facility] | [address] | ([facility]); Spondylosis | | | | and Healing, | [phone] | with Myelopathy, | | | | Building | | Lumbar Region; Left | | | | Floor [place], [place] | | Knee Pain; | | | | [address] | | Adjustment Disorder | | | | [phone] | | with Anxiety; Other | | [...] is optimistic about her knee surgery. Diagnosis: Rosamond I: 1. (296.32) Major depressive disorder, recurrent, moderate. 2. (309.24) Adjustment disorder with anxiety. 3. 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 Rosamond II: Deferred Rosamond III: abdominal pain, migraine headache, low back pain. Rosamond IV: low finances Rosamond V: GAF 55-60 Plan: Return in 3 months. Check mood, knee surgery, pacing, relaxation, activity, distraction. Continue cognitive/behavioral therapy. Discuss need for further sessions. Total time spent with patient was approximately 45 minutes. LUKASZ CHARLES PHD [facility] [address] [facility], 4th [place] [address] documented in this encount er Plan of [...]
--- OUTSIDE RECORDS SUMMARY | ~2019-10-17 | XMS | Encounter Summary ---
[...] Team Providers + +------+ + | Care Teachers Aide Name | Role | Phone | [...] of this encounter Progress Notes Interface, President & Ceo [employer] In - 01/12/2005 12:26 AM PDT [id number] GEOVANNI [facility] Date: 07/25/2004 Clinic: Rheumatology [...] weight that she has lost. At the [employer], a study was presented [...] 6 months. Caitlin Rivera M.S., F.N.P. / [id number] / [id number] / [id number] / [id number] cc: Pedrito Gutierrez M.D. [address] [facility] [place] [address] Electronically signed by Caitlin Rivera 07-31-2004 12:02:37 PM Electronically signed by Interface, President & Ceo [employer] In at 01/12/2005 12:26 AM PDTdocumented i n this encounter Plan of Treatment Not on filedocumented as of this encounter Visit Diagnoses Not on filedocumented in this encounter"
--- OUTSIDE RECORDS SUMMARY | ~2019-10-17 | XMS | Encounter Summary ---
Demographics + + + | Address | [address] | | | [place] [address] | + + + | Home Phone [...] Providers + +------+ + | Care Personal Property Appraiser Name | Role | Phone | [...] | | | | pain | Jayce Lackey | [facility] [address] | | | | | Procedures | [place] | [place] [place] | | | | | CONSULT TO | [place], [place] | [place], [place] | | | | | GI PROCEDURE | [address] | [address] | | | | | UNIT: | Phone: | | | | | | COLONOSCOPY | [phone] | | | | | | | Fax: | | | | | | | [phone] | | + + + + + [...] | | | | Mailcode: L223A | [place], [place] | | | | | [facility] | [address] | | | | | [address] [place], [place] | [phone] | | | | | [address] | | | | | | [phone] | | | +--------+---------+ + + + [...] Ms. Meehan has been seen in the [facility] emergency dept twice in the last [...] [facility] | [address] | [place], [place] | | | [facility] | | [address] | | + + + + + documented in this encounter Visit Diagnoses + + | Diagnosis | + + | Chronic abdominal pain - Primary Abdominal pain, unspecified site | + + documented in this encounter
--- OUTSIDE RECORDS SUMMARY | ~2019-10-17 | XMS | Encounter Summary ---
Demographics + + + | Address | [address] | | | [place] [address] | + + + | Home Phone [...] Providers + +------+ + | Care Insole Channeler Name | Role | Phone | + [...] + + | 07/20/ | Telephone | [facility] | Alanis, | Immunizations | | 2019 | | MEDICINE [address] [place] [address] | MD Petrona | | | | | [facility] | [address] [place] [address] | | | | | [place] [address] | [place] [address] | | | | | [phone] | [phone] | | | | | | | [...] | | | | | [place] [address] | | | | | | [phone] | | | | | | | | +--------+---------+ + + + | 12/20/ | Office | Audiology | Elisabet Munson MS | | | 2019 | Visit | | [facility] [address] | | | | | | [address] [place] | | | | | | [place] [address] | | | | | | [phone] | | | | | | | | +--------+---------+ + + + | 12/20/ | Office | Otolaryngology | Ulysses Genao MD | | | 2019 | Visit | | [address] [place] | | | | | | [address] [place], | | | | | | [place] [address] | | | | | | [phone] | | | | | | | [...]
--- OUTSIDE RECORDS SUMMARY | ~2019-10-17 | XMS | Encounter Summary ---
Demographics + + + | Address | [address] | | | [place] [address] | + + + | Home Phone [...] Providers + +------+ + | Care Basting Machine Operator Name | Role | Phone [...] | [facility] | Alanis, | Injections | | 2019 | | MEDICINE [address] [place] [address] | MD Petrona | | | | | [facility] | [address] [place] [address] | | | | | [place] [address] | [place] [address] | | | | | [phone] | [phone] | | | | | | | [...] | | | | | [place] [address] | | | | | | [phone] | | | | | | | | +--------+---------+ + + + | 12/20/ | Office | Audiology | Elisabet Munson MS | | | 2019 | Visit | | [facility] [address] | | | | | | [place] [address] [place] | | | | | | [place] [address] | | | | | | [phone] | | | | | | | | +--------+---------+ + + + | 12/20/ | Office | Otolaryngology | Ulysses Genao MD | | | 2019 | Visit | | [address] [facility] | | | | | | [address] [place], | | | | | | [place] [address] | | | | | | [phone] | | | | | | | | +--------+---------+ + + + documented as of this encounter Visit Diagnoses Not on filedocumented in this encounter"
--- OUTSIDE RECORDS SUMMARY | ~2019-10-17 | XMS | Encounter Summary ---
Demographics + + + | Address | [address] | | | [place] [address] | + + + | Home Phone [...] Providers + +------+ + | Care Supervisor Rides Name | Role | Phone | + [...] | Pain | Diagnoses | [place], | [place], | | | | Management | LBP (low | NIHARIKA Jean | Lukasz Rhodes, PhD | | | | | back pain) | [address] | [address] | | | | | DJD | [address] | Ave | | | | | (degenerativ | [place], [place] | [place], [place] | | | | | e joint | [address] | [address] | | | | | disease) of | | Phone: | | | | | knee Knee | | [phone] | | | | | pain Major | | Fax: | | | | | depressive | | [phone] | | | | | disorder, | [...] / | Office | [facility] at [facility] | Lukasz Charles, | Major Depressive | | 2007 | Visit | [address] | PhD [address] [place] | Disorder, Recurrent | | | | Mailcode: [facility] | [place], [place] | Episode, Moderate | | | | [place] [facility] | [address] | ([facility]); LBP (Low Back | | | | and Healing, | [phone] | Pain); Fibromyalgia | | | | | | syndrome 729.1; | | | | Floor [place], [place] | | Adjustment Disorder | | | | [address] | | with Anxiety; | | | | [phone] | | Bilateral Knee Pain; | | [...] skills during intense pain episode s. Diagnosis: [place] I: 1. (296.32) Major depressive disorder, recurrent, [...] patient was approximately 45 minutes. LUKASZ CHARLES [facility] [address] [facility], [address] [place] [address] documented in this encount er Plan of Treatment + + +--------+ + + | Name | Type | Priori | Associated Diagnoses | Order Schedule | | | | ty | | | + + +--------+ + + | NE PSYCHOTHERPY, | Procedures | Routin | Major Depressive | Ordered: 08/13/2007 | | OFFICE (41-04) | | e | Disorder, Recurrent | | | | | | Episode, Moderate | | | | | | ([facility]) LBP (Low Back | | | | [...]
--- OUTSIDE RECORDS SUMMARY | ~2019-10-17 | XMS | Encounter Summary ---
Demographics + + + | Address | [address] | | | [place] [address] | + + + | Home Phone [...] Providers + +------+ + | Care Computer Operations Manager Name | Role | Phone [...] | | | | [address] | [address] | | | | | | [place], | Phone: | | | | | | [place] | [phone] | | | | | | [address] | | | | | | | Phone: | | | | | | | [phone] | | | | | | | Fax: | | | | | | | [phone] | | +--------+ + + + + [...] [place] | Dx) | | | | [place] [address] | [place] [address] | | | | | [phone] | [phone] | | | | | | | [...] | | | | | [place] [address] | | | | | | [phone] | | | | | | | | +--------+---------+ + + + | 12/20/ | Office | Audiology | Elisabet Munson MS | | | 2019 | Visit | | [facility] [address] | | | | | [address] [address] [place] | | | | | | [place] [address] | | | | | | [phone] | | | | | | | | +--------+---------+ + + + | 12/20/ | Office | Otolaryngology | Ulysses Genao MD | | | 2019 | Visit | | [address] [place] | | | | | | [address] [place], | | | | | | [place] [address] | | | | | | [phone] | | | | | | | [...]
--- OUTSIDE RECORDS SUMMARY | ~2019-10-17 | XMS | Encounter Summary ---
Demographics + + + | Address | [address] | | | [place] [address] | + + + | Home Phone [...] + +------+ + | Care Academic Support Coordinator Name | Role | Phone | [...] | Services | Therapy | Other | [facility] | HOSPITAL | | | Required | | idiopathic | i, | PHYSICAL | | | | | scoliosis, | [facility] | THERAPY [address] | | | | | lumbar | , [address] | [place] | | | | | region | [address] | [place], [place] | | | | | Chronic | [place], | [address] | | | | | bilateral | [place] | Phone: | | | | | low back | [address] | [phone] | | | | | pain with | Phone: | Fax: | | | | | bilateral | [phone] | [phone] | | | | | sciatica | Fax: | | | | | | Procedures | [phone] | | | | | | 07/20 [...] + + | 07/18/ | Office | [facility] | Alanis, | Chronic bilateral | | 2020 | Visit | MEDICINE [address] [place] [address] | MD Petrona | low back pain with | | | | Street [place] | [address] [facility] | bilateral sciatica | | | | [place] [address] | [place] [address] | (Primary Dx); Other | | | | [phone] | [phone] | idiopathic | | | | | [...] issues: Patient recently did an MRI in [place], after which she had a steroid [...] Allergen Reactions Ensure Diarrhea Food Diarrhea Lactose Xofwvzqokk-Qto-Aoee-Codeine Other (See Comments) Balance problems Codeine Sulfate Nausea Only Food Allergy Formula Diarrhea Ensure Levofloxacin Hives, Itching and Rash Butalbital Ropinirole Amitriptyline Hcl Other (See Comments) Confused and questionable for seizures Xoxiguxihi-Evto-Rpxermis Rash duplicate Egxdsgslop-Gyac-Acicxfoh Hives and Rash Cephalexin Hives Ciprofloxacin Hives and Rash Clarithromycin Hives and Rash Clindamycin Hcl Hives and Rash Doxycycline Rash Duloxetine Other (See Comments) Migraines and nausea Ketorolac Hives Levofloxacin Hives and Rash Morphine Swelling Penicillins Hives and Rash Ropinirole Hcl Hives Sulfamethoxazole-Trimethoprim Hives and Rash Tramadol Hcl Nausea Only FOLLOW-UP No follow-ups on file. Notes: 1. Parts of this documentwere created using Augur speech recognition software. As a resu lt, [...] | | | | | | [place] [address] | | | | | | [phone] | | | | | | | | +--------+---------+ + + + | 12/20/ | Office | Audiology | Elisabet Munson MS | | | 2019 | Visit | | [facility] [address] | | | | | [address] [place] | | | | | | [place] [address] | | | | | | [phone] | | | | | | | | +--------+---------+ + + + | 12/20/ | Office | Otolaryngology | Ulysses Genao MD | | | 2019 | Visit | | [address] [place] | | | | | | [address] [place], | | | | | | [place] [address] | | | | | | [phone] | | | | | | | [...] | | | | uIU/mL | [facility] | | | | | | MEDICAL [...] [address] | [place] | [phone] | | [facility] | | [address] | | | - LABORATORY | | [...]
--- OUTSIDE RECORDS SUMMARY | ~2019-10-17 | XMS | Encounter Summary ---
Demographics + + + | Address | [address] | | | [place] [address] | + + + | Home Phone [...] Providers + +------+ + | Care Budget Analyst Name | Role | Phone | [...] | PENDING | , [address] | [place], | | | | | | [address] | [place] [address] | | | | | | [place], | Phone: | | | | | | [place] | [phone] | | | | | | [address] | Fax: | | | | | | Phone: | [phone] | | | | | | [phone] | | | | | | | Fax: | | | | | | | [phone] | | +--------+ + + + + + Reason for Visit + + + | Reason | Comments | + + + | Vertigo (Recurrent) | | + + + Encounter Details +--------+ + + + + | Date | Type | Department | Care Team | Description | +--------+ + + + + | 11/18/ | Telephone | [facility] | Alanis, | Vertigo (Recurrent) | | 2017 | | MEDICINE [address] [place] [address] | MD Petrona | | | | | [facility] | [address] [place] [address] | | | | | [place] [address] | [place] [address] | | | | | [phone] | [phone] | | | | | | | [...] [place] | | | | | | [place] [address] | | | | | | [phone] | | | | | | | | +--------+---------+ + + + | 12/20/ | Office | Audiology | Elisabet Munson MS | | | 2019 | Visit | | [facility] [address] | | | | | | [place] [address] [place] | | | | | | [place] [address] | | | | | | [phone] | | | | | | | | +--------+---------+ + + + | 12/20/ | Office | Otolaryngology | Ulysses Genao MD | | | 2020 | Visit | | [address] [place] | | | | | | [address] [place], | | | | | | [place] [address] | | | | | | [phone] | | | | | | | [...]
--- OUTSIDE RECORDS SUMMARY | ~2019-10-17 | XMS | Encounter Summary ---
Demographics + + + | Address | [address] | | | [place] [address] | + + + | Home Phone [...] Team Providers + +------+ + | Care Setup Technician Name | Role | Phone | [...] + | 06/25/ | Refill | [facility] | Alanis, | Medication Refill | | 2018 | | MEDICINE [address] [place] [address] | MD Petrona | | | | | [facility] | [address] [place] [address] | | | | | [place] [address] | [place] [address] | | | | | [phone] | [phone] | | | | | | | [...] | | | | | [place] [address] | | | | | | [phone] | | | | | | | | +--------+---------+ + + + | 12/20/ | Office | Audiology | Elisabet Munson MS | | | 2019 | Visit | | [facility] [address] | | | | | | [place] [address] [place] | | | | | | [place] [address] | | | | | | [phone] | | | | | | | | +--------+---------+ + + + | 12/20/ | Office | Otolaryngology | Ulysses Genao MD | | | 2019 | Visit | | [address] [place] | | | | | | [address] [place], | | | | | | [place] [address] | | | | | | [phone] | | | | | | | | +--------+---------+ + + + documented as of this encounter Visit Diagnoses + + | Diagnosis | + + | Nausea - Primary Nausea alone | + + documented in this encounter"
--- OUTSIDE RECORDS SUMMARY | ~2019-10-17 | XMS | Encounter Summary ---
Demographics + + + | Address | [address] | | | [place] [address] | + + + | Home Phone [...] Providers + +------+ + | Care Form Grader Operator Name | Role | Phone [...] | | | [facility] | [place], [place] | | | | | [address] | [address] | | | | | [address] | [phone] | | | | | [facility] | | | | | | Physician's | | | | | | Pavilion [place], | | | | | | [place] [address] | | | | | | [phone] | | | +--------+--------+ + + + [...]
--- OUTSIDE RECORDS SUMMARY | ~2019-10-17 | XMS | Encounter Summary ---
Demographics + + + | Address | [address] | | | [place] [address] | + + + | Home Phone [...] Providers + +------+ + | Care Pulmonary Specialist Name | Role | Phone | [...] Refill Request | | 2008 | | [place] [address] | [address] | (Sucralfate) | | | | [place] Mailcode: CH4S | [facility] | | | | | [facility] | [place], [place] | | | | | and [place], | [address] | | | | | [facility] | [phone] | | | | | Floor [place], [place] | | | | | | [address] | | | | | | [phone] | | | +--------+--------+ + + + [...]
--- OUTSIDE RECORDS SUMMARY | ~2019-10-17 | XMS | Encounter Summary ---
Demographics + + + | Address | [address] | | | [place] [address] | + + + | Home Phone [...] Team Providers + +------+ + | Care Singer And Unloader Name | Role | Phone | [...] + + | 06/22/ | Office | [facility] | Delfina Molina, | Herniated Lumbar | | 2006 | Visit | Pain Center at | ANP | Intervertebral Disc | | | | [facility] | | L4-5; Spondylosis | | [...] | Dependence, | | | | Floor [place], [place] | | Continuous ([facility]); | | | | [address] | | Major Depressive | | | | [phone] | | Disorder, Recurrent | | | | | | Episode, Moderate | | | | | | ([facility]); Adjustment | | | | [...] the past week of Fentanyl patch and Beatty. Trileptal he lps with right leg pain and sleep. "been sleeping great". Expectations for this visit include : discussing the sticking problems with the fentanyl pa tc and her insurance not being willing prescribe Beatty. There have been no other change in [...] an d her insurance stopped coverage of Beatty. I believe doing pool therapy three times [...] might be d iverting or using her Beatty? Until I know more I will not be prescribing a breakthrough sina n medication but am willing to prescribe early for her fentanyl. I have asked Belinda to brass pickler and be responsible for her own medication brass pickler. I discussed with Tasha Nolasco CMA the issue of Insurance PA for Beatty this was in progress as of the time the patient was here. At the time I completed this note we had word that Ins urance would not approve coverage. I will discuss this with Belinda once I know her story o n where the dispensed #70 Beatty is. [ Tasha reported calling [employer] who reported: Belinda's s on picking up [...] with each exchange. 3. Patient instructed to brass pickler and be responsible for her own medications. 4. Follow up in two weeks to review pain management. Once she is again stable on the fen tanyl patch I will transfer her prescribing to Dr. Gutierrez. She has completed the Multidisci plinary patient Care program here at the [facility]. DELFINA MOLINA [facility] Mail code CH 4P [facility] and [address] [address] Tasha Can - 12/04/2006 7:43 [...] | + + | Opioid dependence, continuous ([facility]) Opioid type dependence, continuous | [...]
--- OUTSIDE RECORDS SUMMARY | ~2019-10-17 | XMS | Encounter Summary ---
Demographics + + + | Address | [address] | | | [place] [address] | + + + | Home Phone [...] Team Providers + +------+ + | Care Procurement Internship Name | Role | Phone | [...] of this encounter Progress Notes Interface, Data Developer In - 01/11/2005 11:07 PM PDT Referred [...] is being seen by an orthopedist in [place]. She brings her brace today which she states is going well. The patient, however, yesterday awoke with neck stiffness and pain with spasming type pains in the area of her neck. She was seen in the emergency room last night in [place] for injection after a migraine. She states [...] Jesus M.D. Domingo Lozoya M.D. Gokul P [id number] cc: Pedrito Gutierrez MD [address] [place], [place] [id number] signed by Interface, Data Developer In at 5 11:07 PM PDTdocumented in this encounter Plan of Treatment Not on filedocumented as of this encounter Visit Diagnoses Not on filedocumented in this encounter"
--- OUTSIDE RECORDS SUMMARY | ~2019-10-17 | XMS | Encounter Summary ---
Demographics + + + | Address | [address] | | | [place] [address] | + + + | Home Phone [...] Providers + +------+ + | Care Brass Instrument Repair Technician Name | Role | Phone [...] as of this encounter Progress Notes Interface, Heating Mechanic In - 12/07/2005 3:08 AM [facility] [place] [address] [place], [place] [address] or January 31, 2003 Pedrito Gutierrez M.D. [address] [place] [address] RE: BELINDA MEEHAN MR #: [id number] Dear Dr. Gutierrez: I had the pleasure [...] She had surgery 5 days ago in [place] on her right hand and wrist, for [...] time to help minimize her travel to [place]. In the meantime, please feel free to contact me if you have other questions, concerns, or suggestions regarding her condition. Sincerely, Issac Meeks M.D. steel analyst Division of Endocrinology, Diabetes, and Clinical Nutrition, Director of Metabolic Disorders Clinic MONIQUE / SHARIF [id number] / [id number] / [id number] / Tdocumented in this encounter Plan of Treatment Not on filedocumented as of this encounter Visit Diagnoses Not on filedocumented in this encounter"
--- OUTSIDE RECORDS SUMMARY | ~2019-10-17 | XMS | Encounter Summary ---
Demographics + + + | Address | [address] | | | [place] [address] | + + + | Home Phone [...] Providers + +------+ + | Care Epic Kaleidoscope Analyst Name | Role | Phone | [...] | | | | | Encounter | [place], [place] | [place] | | | | | for | [address] | [address] | | | | | long-term | | Phone: | | | | | (current) | | [phone] | | | | | use of other | | Fax: | | | | | medications | | [phone] | | | | | LBP (low [...] [facility] | Lukasz Charles, | Major depressive | | 2013 | Visit | [address] | PhD [address] | disorder, recurrent | | | | Mailcode: CH15P | [place], [place] | episode, moderate | | | | [place] for [facility] | [address] | ([facility]) (Primary Dx); | | | | and Healing, | [phone] | LBP (low back pain); | | | | | | Adjustment disorder | | | | Floor [place], [place] | | with anxiety | | | | [address] | | | | | | [phone] | | | +--------+---------+ + + + [...] an appropriate candidate for a stimulator. Diagnosis: [place] I: 1. (296.32) Major depressive disorder, recurrent, moderate. 2. (309.24) Adjustment disorder with anxiety. [place] II: Deferred [place] III: abdominal pain, migraine headache, low back pain, fibromyalgia. [place] IV: low finances [place] V: GAF 55-60 Plan: return in 1 month. Check mood, pain, activity, stress management. Ask about spinal cord stimulator, any changes at home. Continue cognitive/behavioral therapy. Total time spent with patient was approximately 45 minutes. LUKASZ CHARLES PHD [facility] [address] [place] [address], [address] [place] [address] documented in this en counter Plan of [...]
--- OUTSIDE RECORDS SUMMARY | ~2019-10-17 | XMS | Encounter Summary ---
Demographics + + + | Address | [address] | | | [place] [address] | + + + | Home Phone [...] Team Providers + +------+ + | Care Classifier Name | Role | Phone | + +------+ + PCP | Unavailable | + +------+ + Encounter Details +--------+ + + + + | Date | Type | Department | Care Team | Description | +--------+ + + + + | 12/21/ | Results | Rheumatology | Caitlin Rivera, | | | 2003 | Only | [place] [address] | SHIRT LINE OPERATOR | | | | | Sharmila Schilling | | | | | | Mailcode: OPC5 | | | | | | Outpatient Clinic | | | | | | Building [facility] | | | | | | [place] [address] | | | | | | [phone] | | | +--------+ + + + [...] Iron and TIBC, Serum Test performed by [facility] | | | [facility]. | | + + + + + + + + | Performing | Address | City/State/Zipcode | Phone Number | | Organization | | | | + + + + + | [facility] | [address] | [place] [address] | | | LABORATORY | | | [...] | + + + + + | [facility] | [address] | [place] [address] | | | LABORATORY | | | [...] | | | | | performed at [facility] | | | | | | [facility] | | | | | | Laboratory | | | | + + + + + + + + | Specimen | + + | | + + + + + + + | Performing | Address | City/State/Zipcode | Phone Number | | Organization | | | | + + + + + | [facility] | [address] | [place] [address] | | | LABORATORY | | | | + + + + + documented in this encounter Visit Diagnoses Not on filedocumented in this encounter"
--- OUTSIDE RECORDS SUMMARY | ~2019-10-17 | XMS | Encounter Summary ---
Demographics + + + | Address | [address] | | | [place] [address] | + + + | Home Phone [...] Team Providers + +------+ + | Care Refuse Collector Supervisor Name | Role | Phone | [...] of this encounter Progress Notes Interface, Director Investment Banking In - 08/30/2005 2:07 AM PST [id number] [facility] Date: 08/11/2005 Clinic: Colorectal [...] Rebekah Navas M.D. Chris Padgett M.D. / [id number] / [id number] / [id number] / [id number] E: 08/14/2005 [email or web address] cc: Dr. Sarah [place], [place] Electronically signed by Chris Padgett 08-29-2005 03:28:30 PM documented i n this encounter Plan of Treatment Not on filedocumented as of this encounter Visit Diagnoses Not on filedocumented in this encounter"
--- OUTSIDE RECORDS SUMMARY | ~2019-10-17 | XMS | Encounter Summary ---
Demographics + + + | Address | [address] | | | [place] [address] | + + + | Home Phone [...] Providers + +------+ + | Care Suction Operator Name | Role | Phone | [...] + | 05/18/ | Refill | [facility] | Alanis, | Medication Refill | | 2016 | | MEDICINE [address] [place] [address] | MD Petrona | | | | | [facility] | [address] [place] [address] | | | | | [place] [address] | [place] [address] | | | | | [phone] | [phone] | | | | | | | [...] | | | | | [place] [address] | | | | | | [phone] | | | | | | | | +--------+---------+ + + + | 12/20/ | Office | Audiology | Elisabet Munson MS | | | 2019 | Visit | | [facility] [address] | | | | | | [place] [address] [place] | | | | | | [place] [address] | | | | | | [phone] | | | | | | | | +--------+---------+ + + + | 12/20/ | Office | Otolaryngology | Ulysses Genao MD | | | 2020 | Visit | | [address] [facility] | | | | | | [address] [place], | | | | | | [place] [address] | | | | | | [phone] | | | | | | | | +--------+---------+ + + + documented as of this encounter Visit Diagnoses Not on filedocumented in this encounter"
--- OUTSIDE RECORDS SUMMARY | ~2019-10-17 | XMS | Encounter Summary ---
Demographics + + + | Address | [address] | | | [place] [address] | + + + | Home Phone [...] + +------+ + | Care General Manager Food Name | Role | Phone | + [...] [address] | | | | | [place], [place] | [place], [place] | | | | | [address] | [address] | | | | | [phone] | [phone] | | | | | | | [...]
--- OUTSIDE RECORDS SUMMARY | ~2019-10-17 | XMS | Encounter Summary ---
Demographics + + + | Address | [address] | | | [place] [address] | + + + | Home Phone [...] Providers + +------+ + | Care Job Developer For Deaf Adults Name | Role | Phone | + [...] as of this encounter Progress Notes Interface, Urogynaecologist In - 01/12/2005 6:32 AM PDT Referred [...] she was going to go to the [employer] food store and try to find another [...] two months. Svetlana Maki R.D. SR/x35 P [id number] signed by Interface, Urogynaecologist In at 01/12/2005 6:32 AM [facility] encounter Plan of Treatment Not on filedocumented as of this encounter Visit Diagnoses Not on filedocumented in this encounter"
--- OUTSIDE RECORDS SUMMARY | ~2019-10-17 | XMS | Encounter Summary ---
Demographics + + + | Address | [address] | | | [place] [address] | + + + | Home Phone [...] Team Providers + +------+ + | Care Transmitter Operator Name | Role | Phone | [...] | | | | Clinical Nutrition | [place], [place] | | | | | [address] | [address] | | | | | Loop Mailcode: OPC5 | [phone] | | | | | Outpatient Clinic | | | | | | [facility], | | | | | | [place] [address] | | | | | | [phone] | | | +--------+ + + + [...]
--- OUTSIDE RECORDS SUMMARY | ~2019-10-17 | XMS | Encounter Summary ---
Demographics + + + | Address | [address] | | | [place] [address] | + + + | Home Phone [...] Providers + +------+ + | Care Payroll Representative Name | Role | Phone | [...] + | 08/04/ | Ref[facility] | [facility] | Alanis, | Medication Refill | | 2017 | | MEDICINE [address] [place] [address] | MD Petrona | | | | | [facility] | [address] [place] [address] | | | | | [place] [address] | [place] [address] | | | | | [phone] | [phone] | | | | | | | [...] | | | | | [place] [address] | | | | | | [phone] | | | | | | | | +--------+---------+ + + + | 12/20/ | Office | Audiology | Elisabet Munson MS | | | 2019 | Visit | | [facility] [address] | | | | | | [place] [address] [place] | | | | | | [place] [address] | | | | | | [phone] | | | | | | | | +--------+---------+ + + + | 12/20/ | Office | Otolaryngology | Ulysses Genao MD | | | 2020 | Visit | | [address] [facility] | | | | | | [address] [place], | | | | | | [place] [address] | | | | | | [phone] | | | | | | | | +--------+---------+ + + + documented as of this encounter Visit Diagnoses Not on filedocumented in this encounter"
--- OUTSIDE RECORDS SUMMARY | ~2019-10-17 | XMS | Encounter Summary ---
Demographics + + + | Address | [address] | | | [place] [address] | + + + | Home Phone [...] Providers + +------+ + | Care Healthcare Customer Service Name | Role | Phone [...] of this encounter Progress Notes Interface, Staff Air Defense Officer In - 01/12/2005 6:46 AM [facility] Date: 11/27/2003 Clinic: Surgery Clinic Subjective: This patient of Dr. Chris Padgett walks into clinic today to discuss her laparoscopic incisions and a lesion on her lower back. She was discharged from [facility] approximately 36 hours ago following [...] discharge and would like to proceed to [place], where her home is. She agrees to [...] additional questions. Liliya Kirkpatrick. NELLY / SHARIF [id number] / [id number] / [id number] / [id number] Tdocumented in this encounter Plan of Treatment Not on filedocumented as of this encounter Visit Diagnoses Not on filedocumented in this encounter"
--- OUTSIDE RECORDS SUMMARY | ~2019-10-17 | XMS | Encounter Summary ---
Demographics + + + | Address | [address] | | | [place] [address] | + + + | Home Phone [...] Providers + +------+ + | Care Senior Project Accountant Name | Role | Phone | [...] | | | [facility] | [place], [place] | | | | | [address] | [address] | | | | | [address] | [phone] | | | | | Physician's | | | | | | Pavilion, 1st floor | | | | | | [place], [place] | | | | | | [address] | | | | | | [phone] | | | +--------+--------+ + + + [...]
--- OUTSIDE RECORDS SUMMARY | ~2019-10-17 | XMS | Encounter Summary ---
Demographics + + + | Address | [address] | | | [place] [address] | + + + | Home Phone [...] Providers + +------+ + | Care Bead Worker Sewing Name | Role | Phone | + [...] of this encounter Progress Notes Interface, Stitcher Standard Machine In - 02/19/2005 5:04 AM PDT [id number] [facility] Date: 01/17/2005 Clinic: General [...] with Dr. Dwaine Larson. She has a vlv-dagr-xlslk lesion at the distal aspect of her [...] closure. Devin German M.D. Dwaine Larson M.D. [facility] / [id number] / [id number] / [id number] / [id number] Electronically signed by Dwaine Larson 02-18-2005 09:15:31 AM documented i n this encounter Plan of Treatment Not on filedocumented as of this encounter Visit Diagnoses Not on filedocumented in this encounter
--- OUTSIDE RECORDS SUMMARY | ~2019-10-17 | XMS | Encounter Summary ---
Demographics + + + | Address | [address] | | | [place] [address] | + + + | Home Phone [...] Team Providers + +------+ + | Care Chaperone Name | Role | Phone | + [...] Rd | | | | | | [place], [place] | | | | | | [address] | | | +--------+ + + + [...]
--- OUTSIDE RECORDS SUMMARY | ~2019-10-17 | XMS | Encounter Summary ---
Demographics + + + | Address | [address] | | | [place] [address] | + + + | Home Phone [...] Providers + +------+ + | Care Managing Jeweler Name | Role | Phone | [...] [address] | | | | | [place], [place] | [place] | | | | | [address] | [address] | | | | | [phone] | [phone] | | | | | | | [...]
--- OUTSIDE RECORDS SUMMARY | ~2019-10-17 | XMS | Encounter Summary ---
Demographics + + + | Address | [address] | | | [place] [address] | + + + | Home Phone [...] Providers + +------+ + | Care Customer Field Representative Name | Role | Phone | + +------+ + | Pedrito Gutierrez MD | PCP | | + +------+ + Encounter Details +--------+ + + + + | Date | Type | Department | Care Team | Description | +--------+ + + + + | 08/04/ | Telephone | [facility] | Chris Padgett, | | | 2006 | | [place] [address] | [address] [facility] | | | | | Bethanie Mailcode: CH4S | [facility] | | | | | Center for [facility] | [place], [place] | | | | | and Healing, | [address] | | | | | Building | [phone] | | | | | Floor [place], [place] | | | | | | [address] | | | | | | [phone] | | | +--------+ + + + [...]
--- OUTSIDE RECORDS SUMMARY | ~2019-10-17 | XMS | Encounter Summary ---
Demographics + + + | Address | [address] | | | [place] [address] [...] + +------+ + | Care Quality Control Representative Name | Role | Phone [...] + + | 05/26/ | Telephone | [facility] | Alanis, | Medication Question | | 2018 | | MEDICINE [address] [place] [address] | MD Petrona | | | | | [facility] | [address] [place] [address] | | | | | [place] [address] | [place] [address] | | | | | [phone] | [phone] | | | | | | | [...] | | | | | [place] [address] | | | | | | [phone] | | | | | | | | +--------+---------+ + + + | 12/20/ | Office | Audiology | Elisabet Munson MS | | | 2019 | Visit | | [facility] [address] | | | | | | [address] [place] | | | | | | [place] [address] | | | | | | [phone] | | | | | | | | +--------+---------+ + + + | 12/20/ | Office | Otolaryngology | Ulysses Genao MD | | | 2020 | Visit | | [address] [facility] | | | | | | [address] [place], | | | | | | [place] [address] | | | | | | [phone] | | | | | | | | +--------+---------+ + + + documented as of this encounter Visit Diagnoses Not on filedocumented in this encounter"
--- OUTSIDE RECORDS SUMMARY | ~2019-10-17 | XMS | Encounter Summary ---
Demographics + + + | Address | [address] | | | [place] [address] | + + + | Home Phone [...] Providers + +------+ + | Care Grounds Worker Name | Role | Phone | [...] + | 01/14/ | Refill | [facility] | Alanis, | Medication Refill | | 2017 | | MEDICINE [address] [place] [address] | MD Petrona | | | | | [facility] | [address] [place] [address] | | | | | [place] [address] | [place] [address] | | | | | [phone] | [phone] | | | | | | | [...] | | | | | [place] [address] | | | | | | [phone] | | | | | | | | +--------+---------+ + + + | 12/20/ | Office | Audiology | Elisabet Munson MS | | | 2019 | Visit | | [facility] [address] | | | | | | [place] [address] [place] | | | | | | [place] [address] | | | | | | [phone] | | | | | | | | +--------+---------+ + + + | 12/20/ | Office | Otolaryngology | Ulysses Genao MD | | | 2020 | Visit | | [address] [facility] | | | | | | [address] [place], | | | | | | [place] [address] | | | | | | [phone] | | | | | | | | +--------+---------+ + + + documented as of this encounter Visit Diagnoses Not on filedocumented in this encounter"
--- OUTSIDE RECORDS SUMMARY | ~2019-10-17 | XMS | Encounter Summary ---
Demographics + + + | Address | [address] | | | [place] [address] | + + + | Home Phone [...] Providers + +------+ + | Care Marketing Project Lead Name | Role | Phone | [...] + | 08/16/ | Refill | [facility] | Alanis, | Medication Refill | | 2019 | | MEDICINE [address] | MD Petrona | | | | | [facility] | [address] [place] [address] | | | | | [place] [address] | [place] [address] | | | | | [phone] | [phone] | | | | | | | [...] | | | | | [place] [address] | | | | | | [phone] | | | | | | | | +--------+---------+ + + + | 12/20/ | Office | Audiology | Elisabet Munson MS | | | 2019 | Visit | | [facility] [address] | | | | | | [place] [address] [place] | | | | | | [place] [address] | | | | | | [phone] | | | | | | | | +--------+---------+ + + + | 12/20/ | Office | Otolaryngology | Ulysses Genao MD | | | 2020 | Visit | | [address] [facility] | | | | | | [address] [place], | | | | | | [place] [address] | | | | | | [phone] | | | | | | | | +--------+---------+ + + + documented as of this encounter Visit Diagnoses Not on filedocumented in this encounter"
--- OUTSIDE RECORDS SUMMARY | ~2019-10-17 | XMS | Encounter Summary ---
Demographics + + + | Address | [address] | | | [place] [address] | + + + | Home Phone [...] Team Providers + +------+ + | Care Cushion Assembler Name | Role | Phone | [...] | [address] | [facility] | Pre-Operative | | | | [address] | Gastro [facility] | Examination (Primary | | | | Mailcode: [id number] | [address] | Dx) | | | | Physician's Pavilion | [address] [place], | | | | | [place], [place] | [place] [address] | | | | | [address] | [phone] | | | | | [phone] | | | +--------+---------+ + + + [...] surgeries scheduled to take place on the [place] at the [facility]: Surgeries scheduled in the [facility] ([address] [place] [address]): registration is located on the 4th floor of [facility] (Day Surgery). Surgeries scheduled in the [facility]: registration is located on the 9th floor. Surgeries scheduled in [facility]: registration is located on the 6th floor. Surgeries scheduled in the [facility]: registration is located i n the [facility] on the first floor. For surgeries scheduled to take place at the [facility]: registration is l ocated on the [...] you use specialized medical equipment at h [facility], please check with your provider [...] surgeries scheduled to take place on the [place] at the [facility]: Surgeries scheduled in the [facility] ( North): registration is located on the 4th floor of [facility] (Day Surgery). Surgeries scheduled in the [facility]: registration is located on the 9th floor. Surgeries scheduled in [facility]: registration is located on the 6th floor. Surgeries scheduled in the [facility]: registration is located i n the [facility] on the first floor. For surgeries scheduled to take place at the [facility]: registration is l [...] you use specialized medical equipment at h [facility], please check with your provider [...] 08/2007 right knee Hx lumbar fusion 05/2008 L5-F3fmgbxg with bone spur removals Hx appendectomy Hx [...] (Ciprofloxacin) Tramadol Morphine IM ( only in [facility]) made gut pain worse 08/27/06: Trial of oral MSIR caused leg swelling Clarithromycin Hives Mainly in the legs Idgmdpt-lqkmnszzrw-yqt-caff Balance problems Amitriptyline Grand mal seizures Fioricet W/codeine (Iho-qdzjxudcts-mpmsbprysf-caf) FAMILY HISTORY: Family History Problem Relation Cancer [...] | [facility] | [address] | [place] [address] | | | PATHOLOGY | [address] | | | + + + + + | [facility] DEPARTMENT OF | [address] | [place] [address] | | | PATHOLOGY | [address] [...] DEPARTMENT OF | [address] | [place] [address] | | | PATHOLOGY | [address] | | | + + + + + | [facility] | [address] | [place] [address] | | | PATHOLOGY | [address] | | | + + + + + documented in this encounter Visit Diagnoses + + | Diagnosis | + + | Other specified pre-operative examination - Primary | + + documented in this encounter
--- OUTSIDE RECORDS SUMMARY | ~2019-10-17 | XMS | Encounter Summary ---
Demographics + + + | Address | [address] | | | [place] [address] | + + + | Home Phone [...] | | | [address] | [place] [address] | | | | | | [place], | Phone: | | | | | | [place] | [phone] | | | | | | [address] | Fax: | | | | | | Phone: | [phone] | | | | | | [phone] | | | | | | | Fax: | | | | | | | [phone] | | +--------+ + + + + [...] (Recurrent) | | 2017 | | MEDICINE [address] [place] [address] | MD Petron[place] | | | | | [facility] | [address] [place] [address] | | | | | [place] [address] | [place] [address] | | | | | [phone] | [phone] | | | | | | | [...] [place] | | | | | | [place] [address] | | | | | | [phone] | | | | | | | | +--------+---------+ + + + | 12/20/ | Office | Audiology | Elisabet Munson MS | | | 2019 | Visit | | [facility] [address] | | | | | | [place] [address] [place] | | | | | | [place] [address] | | | | | | [phone] | | | | | | | | +--------+---------+ + + + | 12/20/ | Office | Otolaryngology | Ulysses Genao MD | | | 2020 | Visit | | [address] | | | | | | [address] [place], | | | | | | [place] [address] | | | | | | [phone] | | | | | | | [...]
--- OUTSIDE RECORDS SUMMARY | ~2019-10-17 | XMS | Encounter Summary ---
[...] Providers + +------+ + | Care Human Service Coordinator Name | Role | Phone [...] | Street [place] | [address] [facility] | pathological | | | | [place] [address] | [place] [address] | fracture presence | | | | [phone] | [phone] | (Primary Dx); | | | | [...] 07/29/17, last one done at the [facility] Belinda Meehan is a 57 y.o. [...] She is seeing a pain specialist in [place] and is receiving hydrocodone from them. She needs a refill of Lomotil for chronic diarrhea which she tolerates well. She also reports some discomfort in the left nostril which is plugged most of the time for last several weeks. No fever or chills. No purulent drainage. Has history of allergies. REVIEW OF SYSTEMS See [facility] for further details. Review of systems [...] Osteopenia Osteoporosis Peripheral neuropathy ([facility]) Rheumatoid arthritis ([facility]) Right [...] (See Comments) Confused and questionable for seizures Asqanzdwpd-Sizu-Kyhslphe Cephalexin Hives Duloxetine Migraines and nausea Ketorolac Hives Morphine Swelling Ropinirole Hcl Hives Tramadol Hcl Nausea Only Oywgmfhgwu-Yikf-Iacfwpcs Hives and Rash Ciprofloxacin Hives and Rash [...] Note: Parts of this documentwere created using [employer] speech recognition software. As a r esult, [...] | | | | | [place] [address] | | | | | | [phone] | | | | | | | | +--------+---------+ + + + | 12/20/ | Office | Audiology | Elisabet Munson MS | | | 2019 | Visit | | [facility] [address] | | | | | [address] [place] | | | | | | [place] [address] | | | | | | [phone] | | | | | | | | +--------+---------+ + + + | 12/20/ | Office | Otolaryngology | Ulysses Genao MD | | | 2019 | Visit | | [address] | | | | | | [address] [place], | | | | | | [place] [address] | | | | | | [phone] | | | | | | | [...]
--- OUTSIDE RECORDS SUMMARY | ~2019-10-17 | XMS | Encounter Summary ---
Demographics + + + | Address | [address] | | | [place] [address] | + + + | Home Phone [...] Providers + +------+ + | Care Naval Gunfire Spotter Name | Role | Phone | + [...] + + | 06/09/ | Telephone | [facility] | Alanis, | Safety issue | | 2019 | | MEDICINE [address] [place] [address] | MD [place] | | | | | [facility] | [address] [place] [address] | | | | | [place] [address] | [place] [address] | | | | | [phone] | [phone] | | | | | | | [...] | | | | | [place] [address] | | | | | | [phone] | | | | | | | | +--------+---------+ + + + | 12/20/ | Office | Audiology | Elisabet Munson MS | | | 2019 | Visit | | [facility] [address] | | | | | | [address] [place] | | | | | | [place] [address] | | | | | | [phone] | | | | | | | | +--------+---------+ + + + | 12/20/ | Office | Otolaryngology | Ulysses Genao MD | | | 2020 | Visit | | [address] [facility] | | | | | | [address] [place], | | | | | | [place] [address] | | | | | | [phone] | | | | | | | | +--------+---------+ + + + documented as of this encounter Visit Diagnoses Not on filedocumented in this encounter"
--- OUTSIDE RECORDS SUMMARY | ~2019-10-17 | XMS | Encounter Summary ---
Demographics + + + | Address | [address] | | | [place] [address] | + + + | Home Phone [...] Providers + +------+ + | Care Assembler Carbon Brushes Name | Role | Phone | + [...] | | | | Clinical Nutrition | [place], [place] | | | | | [address] | [address] | | | | | Loop Mailcode: [id number] | [phone] | | | | | Outpatient Clinic | | | | | | [facility] | | | | | | [place] [address] | | | | | | [phone] | | | +--------+ + + + [...] | + + + + + | [facility] | [address] | [place] [address] | | | PATHOLOGY | [address] | | | + + + + + | [facility] | [facility] | [place] [address] | | | PATHOLOGY | [address] | | | + + + + + documented in this encounter Visit Diagnoses Not on filedocumented in this encounter"
--- OUTSIDE RECORDS SUMMARY | ~2019-10-17 | XMS | Encounter Summary ---
Demographics + + + | Address | [address] | | | [place] [address] | + + + | Home Phone [...] + +------+ + | Care Market Development Manager Name | Role | Phone [...] 2005 | | Bariatric [address] | [address] | Pain (Primary Dx) | | | | [address] | [address] | | | | | Mailcode: [id number] | [place], [place] | | | | | Physician's Sharmila | [address] | | | | | [address] [place], [place] | [phone] | | | | | [address] | | | | | | [phone] | | | +--------+ + + + [...] [facility] | [address] | [place], [place] | | | [facility] | | [address] | | + + + + + documented in this encounter Visit Diagnoses + + | Diagnosis | + + | Chronic abdominal pain - Primary Abdominal pain, unspecified site | + + documented in this encounter"
--- OUTSIDE RECORDS SUMMARY | ~2019-10-17 | XMS | Encounter Summary ---
Demographics + + + | Address | [address] | | | [place] [address] | + + + | Home Phone [...] Providers + +------+ + | Care Mobile Paramedical Examiner Name | Role | Phone | [...] + + | 10/05/ | Telephone | [facility] | Alanis, | Appointment Question | | 2018 | | MEDICINE [address] [place] [address] | MD [place]ron[place] | | | | | [facility] | [address] [place] [address] | | | | | [place] [address] | [place] [address] | | | | | [phone] | [phone] | | | | | | | [...] [place] | | | | | | [place] [address] | | | | | | [phone] | | | | | | | | +--------+---------+ + + + | 12/20/ | Office | Audiology | Elisabet Munson MS | | | 2019 | Visit | | [facility] [address] | | | | | | [place] [address] [place] | | | | | | [place] [address] | | | | | | [phone] | | | | | | | | +--------+---------+ + + + | 12/20/ | Office | Otolaryngology | Ulysses Genao MD | | | 2020 | Visit | | [address] [facility] | | | | | | [address] [place], | | | | | | [place] [address] | | | | | | [phone] | | | | | | | | +--------+---------+ + + + documented as of this encounter Visit Diagnoses Not on filedocumented in this encounter"
--- OUTSIDE RECORDS SUMMARY | ~2019-10-17 | XMS | Encounter Summary ---
Demographics + + + | Address | [address] | | | [place] [address] | + + + | Home Phone [...] PHYSIATRY [address] | MD [address] | | | | | [address] | [place] | | | | | [place], [place] | [address] | | | | | [address] | | | | | | [phone] | | | +--------+ + + + [...] | | | | | | [place] [address] | | | | | | [phone] | | | | | | | | +--------+---------+ + + + | 12/20/ | Office | Audiology | Elisabet Munson MS | | | 2019 | Visit | | [facility] [address] | | | | | [address] [place] | | | | | | [place] [address] | | | | | | [phone] | | | | | | | | +--------+---------+ + + + | 12/20/ | Office | Otolaryngology | Ulysses Genao MD | | | 2019 | Visit | | [address] | | | | | | [address] [place], | | | | | | [place] [address] | | | | | | [phone] | | | | | | | | +--------+---------+ + + + documented as of this encounter Visit Diagnoses Not on filedocumented in this encounter"
--- OUTSIDE RECORDS SUMMARY | ~2019-10-17 | XMS | Encounter Summary ---
Demographics + + + | Address | [address] | | | [place] [address] | + + + | Home Phone [...] [address] | | | | | [facility] | [place], [place] | | | | | and Healing, | [address] | | | | | [place] [address], [facility] | [phone] | | | | | Floor [place], [place] | | | | | | [address] | | | | | | [phone] | | | +--------+ + + + [...]
--- OUTSIDE RECORDS SUMMARY | ~2019-10-17 | XMS | Encounter Summary ---
Demographics + + + | Address | [address] | | | [place] [address] | + + + | Home Phone [...] Team Providers + +------+ + | Care Rotor Plate Washer Name | Role | Phone | [...] | | | | | laterality | [address] | [address] | | | | | Dysfunction | Phone: | Phone: | | | | | of left | [phone] | [phone] | | | | | eustachian | Fax: | Fax: | | | | | tube | [phone] | [phone] | +--------+ + + + + + [...] [place], | unspecified | | | | [place], [place] | [place] [address] | laterality (Primary | | | | [address] | [phone] | Dx); Dysfunction of | | | | [phone] | | left eustachian tube | +--------+ [...] | | | | | [place] [address] | | | | | | [phone] | | | | | | | | +--------+---------+ + + + | 12/20/ | Office | Audiology | Elisabet Munson MS | | | 2019 | Visit | | [facility] [address] | | | | [address] [place] | | | | | | [place] [address] | | | | | | [phone] | | | | | | | | +--------+---------+ + + + | 12/20/ | Office | Otolaryngology | Ulysses Genao MD | | | 2019 | Visit | | [address] | | | | | | [address] [place], | | | | | | [place] [address] | | | | | | [phone] | | | | | | | [...]
--- OUTSIDE RECORDS SUMMARY | ~2019-10-17 | XMS | Encounter Summary ---
Demographics + + + | Address | [address] | | | [place] [address] | + + + | Home Phone [...] BLANCAVD | | | | | | Pterona | TORI | | | | | MD [address] | [place] [address] | | | | | | [address] | Phone: | | | | | | [place], | [phone] | | | | | | [place] | Fax: | | | | | | [address] | [phone] | | | | | | Phone: | | | | | | | [phone] | | | | | | | Fax: | | | | | | | [phone] | | +--------+ + + + + + Encounter Details +--------+---------+ + + + | Date | Type | Department | Care Team | Description | +--------+---------+ + + + | 10/18/ | Office | [facility] | Emmy-Kamlesh, | Obesity (BMI | | 2018 | Visit | GASTROENTEROLOGY | MD Petrona | 30.0-34.9) (Primary | | | | [address] [place] | [address] [place] | Dx); Nausea; Dumping | | | | [address] [place] | [place]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; [place] | | | | [address] | 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); | | | | [phone] | | Gastroesophageal | | | | | Luther Brito MD | reflux disease, | | | | | [address] | esophagitis presence | | | | | [place] | not specified | | | | | [address] | | | | | | [phone] | | | | | | | [...] | | | | | [place] [address] | | | | | | [phone] | | | | | | | | +--------+---------+ + + + | 12/20/ | Office | Audiology | Elisabet Munson MS | | | 2019 | Visit | | [facility] [address] | | | | | [address] [place] [address] [place] | | | | | | [place] [address] | | | | | | [phone] | | | | | | | | +--------+---------+ + + + | 12/20/ | Office | Otolaryngology | Ulysses Genao MD | | | 2019 | Visit | | [address] [place] | | | | | | [address] [place], | | | | | | [place] [address] | | | | | | [phone] | | | | | | | [...]
--- OUTSIDE RECORDS SUMMARY | ~2019-10-17 | XMS | Encounter Summary ---
Demographics + + + | Address | [address] | | | [place] [address] | + + + | Home Phone [...] Providers + +------+ + | Care Sleep Medicine Physician Name | Role | Phone [...] + + | 08/28/ | Office | [facility] Comprehensive | Delfina Lambert, | Neck Pain; Radicular | | 2008 | Visit | Pain Center at | ANP | Pain in Left Arm; | | | | [facility] | | Fibromyalgia; | | | | [address] | | Chronic Bilateral | | | | Mailcode: CH15P | | Shoulder Pain; | | | | [facility] | | Coccydynia; LBP (Low | | | | and Healing, | | Back Pain); | | | | Building | | Adjustment Disorder | | | | Floor [place], [place] | | with Anxiety; Major | | | | [address] | | Depressive Disorder, | | | | [phone] | | Recurrent Episode, | | | [...] Belinda Meehan is a 48 y.o. female [facility] [...] drawing has be completed, which I reviewed. 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 documented in this [facility] Plan of Treatment Not on filedocumented as [...]
--- OUTSIDE RECORDS SUMMARY | ~2019-10-17 | XMS | Encounter Summary ---
Demographics + + + | Address | [address] | | | [place] [address] | + + + | Home Phone [...] Team Providers + +------+ + | Care Matrix Bath Attendant Name | Role | Phone [...] Rd | | | | | | [place], [place] | | | | | | [address] | | | +--------+ + + + [...]
--- OUTSIDE RECORDS SUMMARY | ~2019-10-17 | XMS | Encounter Summary ---
Demographics + + + | Address | [address] | | | [place] [address] | + + + | Home Phone [...] Providers + +------+ + | Care Resident Care Supervisor Name | Role | Phone | + +------+ + | Petrona Thapa | PCP | | | MD | | | + +------+ + Encounter Details +--------+ + + + + | Date | Type | Department | Care Team | Description | +--------+ + + + + | 09/15/ | Hospital | [facility] | Alanis, | Pain in right lower | | 2019 | Encounter | [facility] | MD Petrona | leg | | | | [address] [place] | [address] [facility] | | | | | [place] | [place] [address] | | | | | [address] | [phone] | | | | | [phone] | | | +--------+ + + + [...] | | | | | [place] [address] | | | | | | [phone] | | | | | | | | +--------+---------+ + + + | 12/20/ | Office | Audiology | Elisabet Munson MS | | | 2019 | Visit | | [facility] [address] | | | | | [address] [place] | | | | | | [place] [address] | | | | | | [phone] | | | | | | | | +--------+---------+ + + + | 12/20/ | Office | Otolaryngology | Ulysses Genao MD | | | 2019 | Visit | | [address] [place] | | | | | | [address] [place], | | | | | | [place] [address] | | | | | | [phone] | | | | | | | [...]
--- OUTSIDE RECORDS SUMMARY | ~2019-10-17 | XMS | Encounter Summary ---
Demographics + + + | Address | [address] | | | [place] [address] | + + + | Home Phone [...] + +------+ + | Care Quality Assurance Calibrator Name | Role | Phone | + +------+ + PCP | Unavailable | + +------+ + Encounter Details +--------+ + + + + | Date | Type | Department | Care Team | Description | +--------+ + + + + | 09/14/ | Hospital | [facility] | Ruben Tobias | | | 2001 | Encounter | MED CTR SLEEP | MD Raji [address] | | | | | PINE [address] | [address] [facility] | | | | | [place], [place] | [place] [address] | | | | | [address] | [phone] | | | | | [phone] | | | +--------+ + + + [...] | | | | | [place] [address] | | | | | | [phone] | | | | | | | | +--------+---------+ + + + | 12/20/ | Office | Audiology | Elisabet Munson MS | | | 2019 | Visit | | [facility] [address] | | | [address] [place] | | | | | | [place] [address] | | | | | | [phone] | | | | | | | | +--------+---------+ + + + | 12/20/ | Office | Otolaryngology | Ulysses Genao MD | | | 2019 | Visit | | [address] [place] | | | | | | [address] [place], | | | | | | [place] [address] | | | | | | [phone] | | | | | | | | +--------+---------+ + + + documented as of this encounter Visit Diagnoses Not on filedocumented in this encounter"
--- OUTSIDE RECORDS SUMMARY | ~2019-10-17 | XMS | Encounter Summary ---
Demographics + + + | Address | [address] | | | [place] [address] | + + + | Home Phone [...] Providers + +------+ + | Care County Records Management Officer Name | Role | Phone [...] [facility] | Alanis, | Other | | 2020 | | MEDICINE [address] [place] [address] | MD Petrona | | | | | [facility] | [address] [place] [address] | | | | | [place] [address] | [place] [address] | | | | | [phone] | [phone] | | | | | | | [...] | | | [facility] [address] [place] | | | | | | [place] [address] | | | | | | [phone] | | | | | | | | +--------+---------+ + + + | 12/20/ | Office | Audiology | Elisabet Munson MS | | | 2019 | Visit | | [facility] [address] | | | | | | [place] [address] [address] | | | | | | [place] [address] | | | | | | [phone] | | | | | | | | +--------+---------+ + + + | 12/20/ | Office | Otolaryngology | Ulysses Genao MD | | | 2019 | Visit | | [address] [facility] | | | | | | [address] [place], | | | | | | [place] [address] | | | | | | [phone] | | | | | | | | +--------+---------+ + + + documented as of this encounter Visit Diagnoses Not on filedocumented in this encounter"
--- OUTSIDE RECORDS SUMMARY | ~2019-10-17 | XMS | Encounter Summary ---
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 Provider: DELFINA MOLINA ANP Nathalia Garrett - 007 11:16 AM PDT Physical Therapy Medicare Progress Note Date: 11/27/2006 Belinda Barnes Shefali [id number]. 1960 Start of Care: 11/24/2006 Referring Provider: [...] free margin and undersurface of the director erp horn of the medial meniscus suspicious for [...] gait using bilateral lofstrand crutches Patient's goals: group home: Ambulation with single based cane Treatment: [...] ended: 1200 Nathalia Arora, Physical Therapist License #[id number] documented in this encoun ter Plan of [...]
--- OUTSIDE RECORDS SUMMARY | ~2019-10-17 | XMS | Encounter Summary ---
Demographics + + + | Address | [address] | | | [place] [address] | + + + | Home Phone [...] Team Providers + +------+ + | Care Shadowgraph Scale Operator Name | Role | Phone [...] + + | 03/04/ | Telephone | [facility] | Alanis, | Fever | | 2018 | | MEDICINE [address] [place] [address] | MD Petrona | | | | | [facility] | [address] [place] [address] | | | | | [place] [address] | [place] [address] | | | | | [phone] | [phone] | | | | | | | [...] | | | | | [place] [address] | | | | | | [phone] | | | | | | | | +--------+---------+ + + + | 12/20/ | Office | Audiology | Elisabet Munson MS | | | 2019 | Visit | | [facility] [address] | | | | | | [place] [address] [address] | | | | | | [place] [address] | | | | | | [phone] | | | | | | | | +--------+---------+ + + + | 12/20/ | Office | Otolaryngology | Ulysses Genao MD | | | 2019 | Visit | | [address] [facility] | | | | | | [address] [place], | | | | | | [place] [address] | | | | | | [phone] | | | | | | | | +--------+---------+ + + + documented as of this encounter Visit Diagnoses Not on filedocumented in this encounter"
--- OUTSIDE RECORDS SUMMARY | ~2019-10-17 | XMS | Encounter Summary ---
Demographics + + + | Address | [address] | | | [place] [address] | + + + | Home Phone [...] Team Providers + +------+ + | Care Chicken Tender Name | Role | Phone | [...] Pavilion | | | | | | [place], [place] | | | | | | [address] | | | | | | [phone] | | | +--------+ + + + [...]
--- OUTSIDE RECORDS SUMMARY | ~2019-10-17 | XMS | Encounter Summary ---
Demographics + + + | Address | [address] | | | [place] [address] [...] + | 02/24/ | Refill | [facility] | Alanis, | Medication Refill | | 2017 | | MEDICINE [address] [place] [address] | MD Petrona | | | | | [facility] | [address] [place] [address] | | | | | [place] [address] | [place] [address] | | | | | [phone] | [phone] | | | | | | | [...] | | | | | [place] [address] | | | | | | [phone] | | | | | | | | +--------+---------+ + + + | 12/20/ | Office | Audiology | Elisabet Munson MS | | | 2019 | Visit | | [facility] [address] | | | | | | [place] [address] [place] | | | | | | [place] [address] | | | | | | [phone] | | | | | | | | +--------+---------+ + + + | 12/20/ | Office | Otolaryngology | Ulysses Genao MD | | | 2020 | Visit | | [address] [facility] | | | | | | [address] [place], | | | | | | [place] [address] | | | | | | [phone] | | | | | | | | +--------+---------+ + + + documented as of this encounter Visit Diagnoses Not on filedocumented in this encounter"
--- OUTSIDE RECORDS SUMMARY | ~2019-10-17 | XMS | Encounter Summary ---
Demographics + + + | Address | [address] | | | [place] [address] | + + + | Home Phone [...] Providers + +------+ + | Care Awning Finisher Name | Role | Phone | [...] of this encounter Progress Notes Interface, Wood Boat Builder Supervisor In - 01/12/2005 10:09 AM PDT [id number] [facility] Date: 12/12/2004 Clinic: Endocrinology PHONE CONTACT NOTE The patient called me today after having surgery last week here at [facility]. Her concern was the development of [...] cushion which I have ordered today through [employer], phone #[phone] and fax #[phone]. Today, the patient will monitor the decubiti closely and will be in touch with myself and her other physician depending on the progress. She also still has [address], which may be removed in one or two weeks when she returns to the Surgery Clinic at [facility]. Beto Meeks M.D. PD / HS [id number] / [id number] / [id number] / [id number] cc: Chris Padgett M.D. documented i n this encounter Plan of Treatment Not on filedocumented as of this encounter Visit Diagnoses Not on filedocumented in this encounter"
--- OUTSIDE RECORDS SUMMARY | ~2019-10-17 | XMS | Clinical Summary ---
Demographics + + + | Address | [address] | | | [place] [address] | + + + | Home Phone [...] Providers + +------+ + | Care Brick Wheeler Name | Role | Phone | + +------+ + | Sulaiman Carrera MD | PCP | | + +------+ + Source Comments MARK is fully live on both [facility] Ambulatory and [facility] InPatient.[facility] Allergies + + + + [...] + + + + + + | Jqadock-Mjjspyiccw-I | | | 08/29/19 | Balance problems [...] in | | | | | | [facility]) | | | | | | [...] | imbalances, sleep apnea, neck pain, medication [id number] | + + + + + | [...] | B | | sent | | [place], [place] | | | | | | | | [address] | | + +--------+ +--------+ + +--------+ | ANALYTICAL CONSULTANT MEDICAID | ANALYTICAL CONSULTANT | xxxxxxxx | | | | Medica [...] | 1960 | [phone] | [place] [address] | | | bijan | | | 3 (Home) | | + +--------+ +--------+ + + | Belinda Meehan | Medica | Self | [birth year] | | [address] | | | re | | 9 | [phone] | [place] [address] | | | Recurr | | | 3 (Home) | | | | ing | | | | | + +--------+ +--------+ + + Advance Directives + + + + + | Type | Date Recorded | Patient | Explanation | | | | Coronary Clinical Specialist | | + + + + + | Advance | 11/19/2004 12:00 | | ADVANCE DIRECTIVE | | Directives and | AM | | | | Living Will | | | | + + + + + | Power of | | | | | Fire Control System Installer | | | | + + + [...]
--- OUTSIDE RECORDS SUMMARY | ~2019-10-17 | XMS | Encounter Summary ---
Demographics + + + | Address | [address] | | | [place] [address] | + + + | Home Phone [...] Team Providers + +------+ + | Care Holter Scanning Technician Name | Role | Phone | [...] as of this encounter Progress Notes Interface, 911 Emergency Dispatcher In - 01/13/2005 9:03 AM PDT [id number] [facility] Date: 01/02/2005 Clinic: [facility] Subjective: Ms. Meehan presents today on a walk-in basis for evaluation of some discharge from her panniculectomy incisions over her medial thighs. She reports that she was in town today from [place], [place], to get some labs drawn at [facility] and decided to stop by the [...] Sree Riley M.D. Chris Padgett M.D. / [id number] / [id number] / [id number] / [id number] C: 01/08/2005 cmw documented i n this encounter Plan of Treatment Not on filedocumented as of this encounter Visit Diagnoses Not on filedocumented in this encounter"
--- OUTSIDE RECORDS SUMMARY | ~2019-10-17 | XMS | Encounter Summary ---
Demographics + + + | Address | [address] | | | [place] [address] | + + + | Home Phone [...] Team Providers + +------+ + | Care Sheather Name | Role | Phone | + [...] of this encounter Progress Notes Interface, High Risk Ob In - 01/12/2005 8:09 AM PDT [id number] [facility] Date: 10/23/2003 Clinic: Ms. [...] ahead. Chris Padgett M.D. CD / HS [id number] / [id number] / [id number] / [id number] documented i n this encounter Plan of Treatment Not on filedocumented as of this encounter Visit Diagnoses Not on filedocumented in this encounter"
--- OUTSIDE RECORDS SUMMARY | ~2019-10-17 | XMS | Encounter Summary ---
Demographics + + + | Address | [address] | | | [place] [address] | + + + | Home Phone [...] Providers + +------+ + | Care Lumber Stacker Operator Name | Role | Phone | + +------+ + | Pedrito Gutierrez MD | PCP | | + +------+ + Encounter Details +--------+ + + + + | Date | Type | Department | Care Team | Description | +--------+ + + + + | 11/24/ | Respiratory | | Other, Faculty | | | 2003 | | | [phone] | | | | Therapy[facility] | | [...]
--- OUTSIDE RECORDS SUMMARY | ~2019-10-17 | XMS | Encounter Summary ---
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 Diagnosis: [place] I: 1. (296.32) Major depressive disorder, recurrent, moderate. 2. (309.24) Adjustment disorder with anxiety. 3. 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 [place] II: Deferred [place] III: abdominal pain, migraine headache, low back pain. [place] IV: low finances [place] V: GAF 50 Plan: Return in 2 weeks. Schedule 4 follow-up appointments. Check preparation for move and for niece's visit. Check [employer] gym, pacing, relaxation, activity, distraction. Check "Managin g Pain..." book. Continue cognitive/behavioral therapy. Total time spent with patient was approximately 45 minutes. LUKASZ CHARLES PHD [facility] [address] [facility] [place] [address] documented in this encount er Plan of [...] | | | ([facility]) Spondylosis | | | | | | [...]
--- OUTSIDE RECORDS SUMMARY | ~2019-10-17 | XMS | Encounter Summary ---
Demographics + + + | Address | [address] | | | [place] [address] | + + + | Home Phone [...] Providers + +------+ + | Care Order Manager Name | Role | Phone | [...] of this encounter Progress Notes Interface, Factory Superintendent In - 01/12/2005 6:20 AM PDT [id number] [facility] Date: 11/18/2004 Clinic: General [...] patient to send pictures to our financial operations consultant and scaffolding helper for evaluation for medicare for panniculectomy. Described [...] authorization for panniculectomy. Melisa Thorne / SHARIF [id number] / [id number] / [id number] / [id number] cc: Chris Padgett M.D. Joanna Valdez MD [facility] [address] [place] [address] Electronically signed by Kenisha Melton 11-26-2004 05:00:55 PM documented i n this encounter Plan of Treatment Not on filedocumented as of this encounter Visit Diagnoses Not on filedocumented in this encounter"
--- OUTSIDE RECORDS SUMMARY | ~2019-10-17 | XMS | Encounter Summary ---
Demographics + + + | Address | [address] | | | [place] [address] | + + + | Home Phone [...] Providers + +------+ + | Care Wax Molder Name | Role | Phone | [...] | Center at [facility] [address] | INSURANCE ADMINISTRATIVE ASSISTANT [address] | | | | | [place] | , [address] | | | | | Mailcode: Center | [place], [place] | | | | | [facility] and | [address] | | | | | Healing, Building [address] | [phone] | | | | | [place], [place] | | | | | | [address] | | | | | | [phone] | | | +--------+ + + + [...]
--- OUTSIDE RECORDS SUMMARY | ~2019-10-17 | XMS | Encounter Summary ---
Demographics + + + | Address | [address] | | | [place] [address] | + + + | Home Phone [...] + +------+ + | Care Press Operator Automatic Name | Role | Phone [...] | | | [address] | [address] Phone: | | | | | | [place], | [phone] | | | | | | [place] | Fax: | | | | | | [address] | [phone] | | | | | | Phone: | | | | | | | [phone] | | | | | | | Fax: | | | | | | | [phone] | | +--------+--------+ + + + + [...] Chronic neck pain; | | | | [address] | | Chronic low back | | | | [phone] | | pain; Lumbar | | | [...] of the procedure you must provide a tow motor driver to take you home. For all procedur es it is recommended that someone else drive you home. documented in this encounter Progress Notes Carlos Hsieh MD - 01/04/2015 8:13 AM PDT Carlos Hsieh MD [address] [facility], [address] [place], [place] [id number] FAX: PHYSICAL MEDICINE AND REHABILITATION H&P CHIEF COMPLAINT: Chief Complaint Patient presents with Neck Pain Neck pain that radiates between the shoulder blades and down from there HISTORY OF PRESENT ILLNESS: The patient is a 54 y.o. female being seen today at the [facility] of Dr. Booth for [...] were performed by a Dr. García in [place]. Th e patient is unable to take NSAID's because apparently last time she took them she was black and blue all over. PAST MEDICAL HISTORY: Past Medical History Diagnosis Date Diarrhea Osteoarthritis, generalized Migraine Osteopenia Obesity Syncope Hyperparathyroidism ([facility]) RLS (restless legs syndrome) OLIVER (obstructive sleep apnea) Depression COPD (chronic obstructive pulmonary disease) ([facility]) Fibromyalgia Peripheral neuropathy Chronic pain Benign essential hypertension Rheumatoid arthritis ([facility]) IBS (irritable bowel syndrome) Scoliosis Hypothyroidism Stroke ([facility]) Blind left eye Arthritis Osteoporosis Migraines Dumping [...] visit. ALLERGIES: Allergies Allergen Reactions Amitriptyline Hcl Pgpljhpoig-Cocp-Gewitbdu Cephalexin Ciprofloxacin Clarithromycin Clindamycin Hcl Codeine Sulfate [...] has no apparent deficits with short or predatory animal exterminator memory. She has appropriate fund of knowledge [...] of the cervical spine next week at [facility]. The patient was informed to contact [...] | | | | | [place] [address] | | | | | | [phone] | | | | | | | | +--------+---------+ + + + | 12/20/ | Office | Audiology | Elisabet Munson MS | | | 2019 | Visit | | [facility] [address] | | | | | | [address] [place] | | | | | | [place] [address] | | | | | | [phone] | | | | | | | | +--------+---------+ + + + | 12/20/ | Office | Otolaryngology | Ulysses Genao MD | | | 2019 | Visit | | [address] [place] | | | | | | [address] [place], | | | | | | [place] [address] | | | | | | [phone] | | | | | | | [...] Shefali presents to the fluoroscopy suite for [facility] | | fluoroscopically-guided bilateral L5-S1 [...] + | [address] | [address] | [place] | [phone] | | [facility] | | [address] | | | - IMAGING | | [...]
--- OUTSIDE RECORDS SUMMARY | ~2019-10-17 | XMS | Encounter Summary ---
Demographics + + + | Address | [address] | | | [place] [address] | + + + | Home Phone [...] + +------+ + | Care Real Estate Listing Consultant Name | Role | Phone | [...] + + | 12/13/ | Telephone | [facility] | Alanis, | Follow-up | | 2019 | | MEDICINE [address] [place] [address] | MD Petrona | | | | | [facility] | [address] [place] [address] | | | | | [place] [address] | [place] [address] | | | | | [phone] | [phone] | | | | | | | [...] | | | | | [place] [address] | | | | | | [phone] | | | | | | | | +--------+---------+ + + + | 12/20/ | Office | Audiology | Elisabet Munson MS | | | 2020 | Visit | | [facility] [address] | | | | | | [place] [address] [place] | | | | | | [place] [address] | | | | | | [phone] | | | | | | | | +--------+---------+ + + + | 12/20/ | Office | Otolaryngology | Ulysses Genao MD | | | 2020 | Visit | | [address] [facility] | | | | | | [address] [place], | | | | | | [place] [address] | | | | | | [phone] | | | | | | | | +--------+---------+ + + + documented as of this encounter Visit Diagnoses Not on filedocumented in this encounter"
--- OUTSIDE RECORDS SUMMARY | ~2019-10-17 | XMS | Encounter Summary ---
[...] + + | 06/13/ | Refill | [facility] | Alanis, | Medication Refill; | | 2018 | | MEDICINE [address] | MD Petrona | Medication Refill | | | | [facility] | [address] [place] [address] | | | | | [place] [address] | [place] [address] | | | | | [phone] | [phone] | | | | | | | [...] | | | | | [place] [address] | | | | | | [phone] | | | | | | | | +--------+---------+ + + + | 12/20/ | Office | Audiology | Elisabet Munson MS | | | 2019 | Visit | | [facility] [address] | | | | | | [place] [address] [place] | | | | | | [place] [address] | | | | | | [phone] | | | | | | | | +--------+---------+ + + + | 12/20/ | Office | Otolaryngology | Ulysses Genao MD | | | 2019 | Visit | | [address] [place] | | | | | | [address] [place], | | | | | | [place] [address] | | | | | | [phone] | | | | | | | | +--------+---------+ + + + documented as of this encounter Visit Diagnoses Not on filedocumented in this encounter"
--- OUTSIDE RECORDS SUMMARY | ~2019-10-17 | XMS | Encounter Summary ---
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 emt intermediate risk can lead to osteoporosis which is [...] were performed by a Dr. García in [place]. The patient is unable to take NSAID's [...] visit. ALLERGIES: Allergies Allergen Reactions Amitriptyline Hcl Ckkzoszqvm-Afxa-Gvaeypae Cephalexin Ciprofloxacin Clarithromycin Clindamycin Hcl Codeine Sulfate [...] has no apparent deficits with short or fpc memory. She has appropriate fund of knowledge [...] PT (multiple sessions over the years) and specialist wound care. Unfortunately she nelly nues to have [...] she is starting physical therapy again in [place]. 5. I will see the patient 2 [...] | | | | | [place] [address] | | | | | | [phone] | | | | | | | | +--------+---------+ + + + | 12/20/ | Office | Audiology | Elisabet Munson MS | | | 2019 | Visit | | [facility] [address] | | | | | [address] [place] [address] [place] | | | | | | [place] [address] | | | | | | [phone] | | | | | | | | +--------+---------+ + + + | 12/20/ | Office | Otolaryngology | Ulysses Genao MD | | | 2019 | Visit | | [address] [place] | | | | | | [address] [place], | | | | | | [place] [address] | | | | | | [phone] | | | | | | | [...] 720.0 Belinda Meehan presents to the | [facility] | | fluoroscopy suite for fluoroscopically guided bilateral sacroiliac [facility] | | joint steroid injections as part [...] + + | Performing | Address | City/State/[facility] | Phone Number | | Organization | | | | + + + + + | [facility] | [address] | [place], [place] | [phone] | | [facility] | | [address] | | | - IMAGING | | [...] 720.0 Belinda Meehan presents to the | [facility] | | fluoroscopy suite for fluoroscopically guided bilateral sacroiliac [facility] | | joint steroid injections as part [...] | + + + + + | [facility] | [address] | [place] | [phone] | | [facility] | | [address] | | | - IMAGING | | [...]
--- OUTSIDE RECORDS SUMMARY | ~2019-10-17 | XMS | Encounter Summary ---
Demographics + + + | Address | [address] | | | [place] [address] | + + + | Home Phone [...] Providers + +------+ + | Care Physical Chemistry Teacher Name | Role | Phone [...] Rd | | | | | | [place], [place] | | | | | | [address] | | | +--------+ + + + [...]
--- OUTSIDE RECORDS SUMMARY | ~2019-10-17 | XMS | Encounter Summary ---
Demographics + + + | Address | [address] | | | [place] [address] | + + + | Home Phone [...] + +------+ + | Care X Ray Control Equipment Repairer Name | Role | Phone [...] + + | 03/17/ | Telephone | [facility] | Alanis, | T[facility] - Hosp FU | | 2017 | | MEDICINE [address] [place] [address] | MD Petrona | | | | | [facility] | [address] [place] [address] | | | | | [place] [address] | [place] [address] | | | | | [phone] | [phone] | | | | | | | [...] | | | | | [place] [address] | | | | | | [phone] | | | | | | | | +--------+---------+ + + + | 12/20/ | Office | Audiology | Elisabet Munson MS | | | 2019 | Visit | | [address] | | | | | | [address] [place] | | | | | | [place] [address] | | | | | | [phone] | | | | | | | | +--------+---------+ + + + | 12/20/ | Office | Otolaryngology | Ulysses Genao MD | | | 2020 | Visit | | [address] [place] | | | | | | [address] [place], | | | | | | [place] [address] | | | | | | [phone] | | | | | | | | +--------+---------+ + + + documented as of this encounter Visit Diagnoses Not on filedocumented in this encounter"
--- OUTSIDE RECORDS SUMMARY | ~2019-10-17 | XMS | Encounter Summary ---
Demographics + + + | Address | [address] | | | [place] [address] | + + + | Home Phone [...] Providers + +------+ + | Care Instrument Panel Assembler Name | Role | Phone | + +------+ + | Pedrito Gutierrez MD | PCP | | + +------+ + Encounter Details +--------+ + + + + | Date | Type | Department | Care Team | Description | +--------+ + + + + | 04/17/ | Telephone | [facility] Division of | Carlos Arreola, | | | 2005 | | Gastroenterology/Hep | [address] | | | | | atology [address] | [address] | | | | | [address] | [place] [address] | | | | | Mailcode: PV310 | [phone] | | | | | Physician's Sharmila | | | | | | [address] | | | | | | [place], [place] | | | | | | [address] | | | | | | [phone] | | | +--------+ + + + [...]
--- OUTSIDE RECORDS SUMMARY | ~2019-10-17 | XMS | Encounter Summary ---
Demographics + + + | Address | [address] | | | [place] [address] | + + + | Home Phone [...] Providers + +------+ + | Care Bow Maker Production Name | Role | Phone | [...] as of this encounter Progress Notes Interface, Court Administrator In - 11/19/2005 3:09 AM PDT [place] [facility] [address] [place] [address] or May 09, 2003 Pedrito Gutierrez M.D. [address] [place] [address] RE: BELINDA MEEHAN MR #: [id number] Dear Dr. Gutierrez: I had the pleasure [...] this testing done through your clinic in [place]. I will plan to see her again [...] regarding her condition. Sincerely, Issac Meeks M.D. machine grinder, Division of Endocrinology, Diabetes, and Clinical [facility], Met[facility] Disorders Clinic PBD / HS [id number] / [id number] / [id number] / Tdocumented in this encounter Plan of Treatment Not on filedocumented as of this encounter Visit Diagnoses Not on filedocumented in this encounter"
--- OUTSIDE RECORDS SUMMARY | ~2019-10-17 | XMS | Encounter Summary ---
Demographics + + + | Address | [address] | | | [place] [address] | + + + | Home Phone [...] Providers + +------+ + | Care Strategic Solutions Consultant Name | Role | Phone | [...] | 02/22/ | Refill | [facility] | Alanis, | Medication Refill | | 2017 | | MEDICINE [address] [place] [address] | MD Petrona | | | | | [facility] | [address] [place] [address] | | | | | [place] [address] | [place] [address] | | | | | [phone] | [phone] | | | | | | | [...] | | | | | [place] [address] | | | | | | [phone] | | | | | | | | +--------+---------+ + + + | 12/20/ | Office | Audiology | Elisabet Munson MS | | | 2019 | Visit | | [facility] [address] | | | | | | [place] [address] [place] | | | | | | [place] [address] | | | | | | [phone] | | | | | | | | +--------+---------+ + + + | 12/20/ | Office | Otolaryngology | Ulysses Genao MD | | | 2020 | Visit | | [address] [facility] | | | | | | [address] [place], | | | | | | [place] [address] | | | | | | [phone] | | | | | | | | +--------+---------+ + + + documented as of this encounter Visit Diagnoses Not on filedocumented in this encounter"
--- OUTSIDE RECORDS SUMMARY | ~2019-10-17 | XMS | Encounter Summary ---
Demographics + + + | Address | [address] | | | [place] [address] | + + + | Home Phone [...] Team Providers + +------+ + | Care Pantograph Machine Set Up Operator Name | Role [...] | | | | | | | [place], [place] | | | | | | | [address] | | | | | | | Phone: | | | | | | | [phone] | | | | | | | Fax: | | | | | | | [phone] | +--------+--------+ + + + + Encounter [...] | | | [facility] | [place], [place] | Metabolic syndrome | | | | [address] | [address] | X 250.80; Essential | | | | [address] | [phone] | hypertension 401.9; | | | | Physician's Pavilion | | Fibromyalgia | | | | Physician's | | syndrome 729.1 | | | | Pavilion [place], | | | | | | [place] [address] | | | | | | [phone] | | | +--------+---------+ + + + [...] by oral route once daily at bedti pr as needed Oxycodone HCl (OXYCONTIN) 40 mg [...]
--- OUTSIDE RECORDS SUMMARY | ~2019-10-17 | XMS | Encounter Summary ---
Demographics + + + | Address | [address] | | | [place] [address] | + + + | Home Phone [...] Providers + +------+ + | Care Bobbin Fixer Name | Role | Phone | [...] | | | | | | [address] [place], [place] | | | | | | [address] | | | | | | [phone] | | | +--------+ + + + [...]
--- OUTSIDE RECORDS SUMMARY | ~2019-10-17 | XMS | Encounter Summary ---
Demographics + + + | Address | [address] | | | [place] [address] | + + + | Home Phone [...] Providers + +------+ + | Care Crew Mess Attendant Name | Role | Phone | [...] Refill Request | | 2007 | | [facility] [address] | [address] [facility] | | | | | Bethanie Mailcode: CH4S | [address] [facility] | | | | | [facility] | [place], [place] | | | | | and [place], | [address] | | | | | [facility] | [phone] | | | | | Floor [place], [place] | | | | | | [address] | | | | | | [phone] | | | +--------+--------+ + + + [...]
--- OUTSIDE RECORDS SUMMARY | ~2019-10-17 | XMS | Encounter Summary ---
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
--- OUTSIDE RECORDS SUMMARY | ~2019-10-17 | XMS | Encounter Summary ---
Demographics + + + | Address | [address] | | | [place] [address] | + + + | Home Phone [...] Providers + +------+ + | Care Mortgage Loan Officer Name | Role | [...] | | | | | | | [place] [facility] | | | | | | | Health and | | | | | | | Healing, | | | | | | | [address] | | | | | | | [place], [place] | | | | | | | [address] | | | | | | | Phone: | | | | | | | [phone] | | | | | | | Fax: | | | | | | | [phone] | +--------+--------+ + + + + Encounter Details +--------+---------+ + + + | Date | Type | Department | Care Team | Description | +--------+---------+ + + + | 01/10/ | Office | Digestive Health | Chris Padgett, | Status post | | 2009 | Visit | Center [address] | [address] [facility] | bariatric surgery | | | | Ave Mailcode: CH4S | [address] | (Primary Dx) | | | | [facility] | [employer] [place], [place] | | | | | and [place], | [address] | | | | | [facility] | [phone] | | | | | Floor [place], [place] | | | | | | [address] | | | | | | [phone] | | | +--------+---------+ + + + [...] and I asked her to see a flatcar whacker where she lives. Will obtain CBC and [...]
--- OUTSIDE RECORDS SUMMARY | ~2019-10-17 | XMS | Encounter Summary ---
Demographics + + + | Address | [address] | | | [place] [address] | + + + | Home Phone [...] Providers + +------+ + | Care Dietary Aide Name | Role | Phone | [...] | | 2006 | | [facility] at [place] | MD Darrion,PhD [address] | | | | | for Health and | [address] | | | | | Healing [address] | [place], [place] | | | | | Ave Mailcode: | [address] | | | | | CH12A [facility] | [phone] | | | | | Health and Healing, | | | | | | [facility] | | | | | | [place], [place] | | | | | | [address] | | | | | | [phone] | | | +--------+ + + + [...]
--- OUTSIDE RECORDS SUMMARY | ~2019-10-17 | XMS | Encounter Summary ---
Demographics + + + | Address | [address] | | | [place] [address] | + + + | Home Phone [...] Providers + +------+ + | Care Telehealth Coordinator Name | Role | Phone | [...] [address] | | | | | [facility] | [place], [place] | | | | | and Healing, | [address] | | | | | [facility], [facility] | [phone] | | | | | Floor [place], [place] | | | | | | [address] | | | | | | [phone] | | | +--------+ + + + [...]
--- OUTSIDE RECORDS SUMMARY | ~2019-10-17 | XMS | Encounter Summary ---
Demographics + + + | Address | [address] | | | [place] [address] | + + + | Home Phone [...] | Pain | Diagnoses | Miracle, | Cassia, | | | | Management | LBP (low | NIHARIKA Jean | Lukasz Rhodes, PhD | | | | | back pain) | [address] | [address] | | | | | DJD | [address] | Ave | | | | | (degenerativ | [place], [place] | [place], [place] | | | | | e joint | [address] | [address] | | | | | disease) of | | Phone: | | | | | knee Knee | | [phone] | | | | | pain Major | | Fax: | | | | | depressive | | [phone] | | | | | disorder, | [...] | Office | [facility] | Lukasz Charles, | Major Depressive | | 2008 | Visit | [address] | PhD [address] | Disorder, Recurrent | | | | Mailcode: CH15P | [place], [place] | Episode, Mild (HCC); | | | | [place] [facility] | [address] | LBP (Low Back | | | | and Healing, | [phone] | Pain); Migraine | | | | | | Headache | | | | Floor [place], [place] | | | | | | [address] | | | | | | [phone] | | | +--------+---------+ + + + [...] migraine specialist this week. She reported that [employer] has done some sewing and she found [...] benefit as she becomes more active. Diagnosis: [place] I: 1. (296.31) Major depressive disorder, recurrent, mild. 2. (309.24) Adjustment disorder with anxiety. 3. 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 [place] II: Deferred [place] III: abdominal pain, migraine headache, low back pain. [place] IV: low finances [place] V: GAF 55-60 Plan: return with next medical follow-up appointment. Check mood, pain, surgical recovery , relaxation, activity, distraction, eating. Ask about headache specialist, physical therap y. Continue cognitive/behavioral therapy. Total time spent with patient was approximately 45 minutes. LUKASZ CHARLES PHD [facility] [address] [facility], [address] [place] [address] documented in this en counter Plan of [...]
--- OUTSIDE RECORDS SUMMARY | ~2019-10-17 | XMS | Encounter Summary ---
Demographics + + + | Address | [address] | | | [place] [address] | + + + | Home Phone [...] Providers + +------+ + | Care Steam Roller Operator Name | Role | Phone [...] | | Osteoporosis | i, | [address] | | | | | , | [place] | [place], | | | | | unspecified | , MD [address] | [place] [address] | | | | | osteoporosis | [address] | Phone: | | | | | type, | [place], | [phone] | | | | | unspecified | [place] | Fax: | | | | | pathological | [address] | [phone] | | | | | fracture | Phone: | | | | | | presence | [phone] | | | | | | Procedures | Fax: | | | | | | [place] | [phone] | | | | | | ZOLEDRONIC | | | | | | | ACID 1MG | | | +--------+ + + + + + Encounter Details +--------+ + + + + | Date | Type | Department | Care Team | Description | +--------+ + + + + | 08/18/ | Hospital | [facility] | Alanis, | Osteopenia, | | 2018 | Encounter | MED CTR OP INFUSION | MD Petrona | unspecified location | | | | [address] | [address] [facility] | | | | | [place] | [place] [address] | | | | | [address] | [phone] | | | | | [phone] | | | +--------+ + + + [...] Scr was from her lab draw at [facility]. Marlyn PharmD reports it was 0.81 mg/dL. [...] | | | | | [place] [address] | | | | | | [phone] | | | | | | | | +--------+---------+ + + + | 12/20/ | Office | Audiology | Elisabet Munson MS | | | 2019 | Visit | | [facility] [address] | | | | | [address] [place] | | | | | | [place] [address] | | | | | | [phone] | | | | | | | | +--------+---------+ + + + | 12/20/ | Office | Otolaryngology | Ulysses Genao MD | | | 2019 | Visit | | [address] | | | | | | [address] [place], | | | | | | [place] [address] | | | | | | [phone] | | | | | | | [...]
--- OUTSIDE RECORDS SUMMARY | ~2019-10-17 | XMS | Encounter Summary ---
Demographics + + + | Address | [address] | | | [place] [address] | + + + | Home Phone [...] + + | 08/17/ | Telephone | [facility] | Alanis, | Other | | 2020 | | MEDICINE [address] [place] [address] | MD Petrona | | | | | [facility] | [address] [place] [address] | | | | | [place] [address] | [place] [address] | | | | | [phone] | [phone] | | | | | | | [...] | | | | | [place] [address] | | | | | | [phone] | | | | | | | | +--------+---------+ + + + | 12/20/ | Office | Audiology | Elisabet Munson MS | | | 2019 | Visit | | [facility] [address] | | | | | | [place] [address] [address] | | | | | | [place] [address] | | | | | | [phone] | | | | | | | | +--------+---------+ + + + | 12/20/ | Office | Otolaryngology | Ulysses Genao MD | | | 2019 | Visit | | [address] [facility] | | | | | | [address] [place], | | | | | | [place] [address] | | | | | | [phone] | | | | | | | | +--------+---------+ + + + documented as of this encounter Visit Diagnoses Not on filedocumented in this encounter"
--- OUTSIDE RECORDS SUMMARY | ~2019-10-17 | XMS | Encounter Summary ---
Demographics + + + | Address | [address] | | | [place] [address] | + + + | Home Phone [...] Team Providers + +------+ + | Care Heddler Tier Name | Role | Phone | [...] [address] | | | | | | [place], [place] | | | | | | [address] | | | | | | [phone] | | | +--------+ + + + [...]
--- OUTSIDE RECORDS SUMMARY | ~2019-10-17 | XMS | Encounter Summary ---
Demographics + + + | Address | [address] | | | [place] [address] | + + + | Home Phone [...] Providers + +------+ + | Care Side Seam Machine Operator Name | Role | Phone [...] + | 08/14/ | Refill | [facility] | Alanis, | Medication Refill | | 2018 | | MEDICINE [address] [place] [address] | MD Petrona | | | | | [facility] | [address] [place] [address] | | | | | [place] [address] | [place] [address] | | | | | [phone] | [phone] | | | | | | | [...] | | | | | [place] [address] | | | | | | [phone] | | | | | | | | +--------+---------+ + + + | 12/20/ | Office | Audiology | Elisabet Munson MS | | | 2019 | Visit | | [facility] [address] | | | | | | [place] [address] [place] | | | | | | [place] [address] | | | | | | [phone] | | | | | | | | +--------+---------+ + + + | 12/20/ | Office | Otolaryngology | Ulysses Genao MD | | | 2020 | Visit | | [address] [facility] | | | | | | [address] [place], | | | | | | [place] [address] | | | | | | [phone] | | | | | | | | +--------+---------+ + + + documented as of this encounter Visit Diagnoses Not on filedocumented in this encounter"
--- OUTSIDE RECORDS SUMMARY | ~2019-10-17 | XMS | Encounter Summary ---
Demographics + + + | Address | [address] | | | [place] [address] | + + + | Home Phone [...] Providers + +------+ + | Care Bead Machine Operator Name | Role | Phone [...] | | Surgery | | Non-[facility] | [place], | | | | | | Epic Dept | MD Eliezer | | | | | | | [address] | | | | | | | [address] | | | | | | | [place], | | | | | | | [place] | | | | | | | [address] | | | | | | | Phone: | | | | | | | [phone] | | | | | | | Fax: | | | | | | | [phone] | +--------+--------+ + + + + Encounter Details +--------+---------+ + + + | Date | Type | Department | Care Team | Description | +--------+---------+ + + + | 07/10/ | Office | Digestive Health | Eliezer Ruano, | Abdominal Pain, | | 2008 | Visit | [place] [address] | [address] | dumping syndrome Hx | | | | Ave Mailcode: CH4S | [address] | of gastric bypass | | | | [facility] | [place], [place] | (Primary Dx) | | | | and Healing, | [address] | | | | | Building | [phone] | | | | | Floor [place], [place] | | | | | | [address] | | | | | | [phone] | | | +--------+---------+ + + + [...] and plan of care. ELIEZER RUANO MD [address] Mailcode: [place] [address] Yuriy Mayo MD - 06/16 [...] 300 mg) by oral route once daily eqbezehbxu-mrbnzsasggmkp-wigljhjd (FIORICET) 50-325-40 mg Oral Tablet take 2 [...] 278 01/18 Paniculectomy Hx lumbar fusion 05/2008 [id number] with bone spur removals Review of Systems: [...]
--- OUTSIDE RECORDS SUMMARY | ~2019-10-17 | XMS | Encounter Summary ---
Demographics + + + | Address | [address] | | | [place] [address] | + + + | Home Phone [...] Providers + +------+ + | Care Sales Officer Name | Role | Phone | [...] + + | 08/14/ | Office | [facility] | Alanis, | Situational insomnia | | 2020 | Visit | MEDICINE [address] | MD Petrona | (Primary Dx); | | | | [facility] | [address] [place] [address] | Situational | | | | [place] [address] | [place] [address] | depression | | | | [phone] | [phone] | | | | | | | [...] Total Score 10 (08/15/19934) (Printable questionnaires in Belgian ) Interpretation of Total Score: 1-4 = [...] Procedure: COLONOSCOPY; Surgeon: Luther Brito MD; Location: [facility] MEDICAL PROCEDURE UNIT DILATION AND CURETTAGE OF UTERUS ELBOW SURGERY FINGER TRIGGER RELEASE 2002 FINGER TRIGGER RELEASE 2010 GASTRIC BYPASS SURGERY 2004 HYSTERECTOMY 05/14/1980 JOINT REPLACEMENT Bilateral 2006 2007 KNEE ARTHROSCOPY 2005 LAPAROSCOPY 01/27/2015 LAPAROTOMY 2008 ROTATOR CUFF REPAIR 2005 SPINE SURGERY TONSILLECTOMY 1964 UPPER GASTROINTESTINAL ENDOSCOPY N/A 12/18/2017 Procedure: EGD; Surgeon: Luther Brito MD; Location: [facility] MEDICAL PROCEDURE UNIT CURRENT MEDICATIONS [...] Allergen Reactions Ensure Diarrhea Food Diarrhea Lactose Sofhnaenpb-Ooz-Owwv-Codeine Other (See Comments) Balance problems Codeine Sulfate Nausea Only Food Allergy Formula Diarrhea Ensure Levofloxacin Hives, Itching and Rash Butalbital Ropinirole Amitriptyline Hcl Other (See Comments) Confused and questionable for seizures Rdhjyxerzn-Rhzs-Fvedbbyr Rash duplicate Grplrmglxe-Gvdh-Uichkpbu Hives and Rash Cephalexin Hives Ciprofloxacin Hives and Rash Clarithromycin Hives and Rash Clindamycin Hcl Hives and Rash Doxycycline Rash Duloxetine Other (See Comments) Migraines and nausea Ketorolac Hives Levofloxacin Hives and Rash Morphine Swelling Penicillins Hives and Rash Ropinirole Hcl Hives Sulfamethoxazole-Trimethoprim Hives and Rash Tramadol Hcl Nausea Only FOLLOW-UP No follow-ups on file. Notes: 1. Parts of this documentwere created using [employer] speech recognition software. As a resu lt, [...] | | | | | [place] [address] | | | | | | [phone] | | | | | | | | +--------+---------+ + + + | 12/20/ | Office | Audiology | Elisabet Munson MS | | | 2019 | Visit | | [facility] [address] | | | | | | [place] | | | | | | [place] [address] | | | | | | [phone] | | | | | | | | +--------+---------+ + + + | 12/20/ | Office | Otolaryngology | Ulysses Genao MD | | | 2020 | Visit | | [address] [facility] | | | | | | [address] [place], | | | | | | [place] [address] | | | | | | [phone] | | | | | | | [...] | | | First dose on [facility] 10/15/17 at 1215 | | | [...]
--- OUTSIDE RECORDS SUMMARY | ~2019-10-17 | XMS | Encounter Summary ---
Demographics + + + | Address | [address] | | | [place] [address] | + + + | Home Phone [...] + + | 03/08/ | Telephone | [facility] | Alanis, | Hospitalization | | 2017 | | MEDICINE [address] [place] [address] | MD Petrona | | | | | [facility] | [address] [place] [address] | | | | | [place] [address] | [place] [address] | | | | | [phone] | [phone] | | | | | | | [...] | | | | | [place] [address] | | | | | | [phone] | | | | | | | | +--------+---------+ + + + | 12/20/ | Office | Audiology | Elisabet Munson MS | | | 2019 | Visit | | [facility] [address] | | | | | | [address] [place] | | | | | | [place] [address] | | | | | | [phone] | | | | | | | | +--------+---------+ + + + | 12/20/ | Office | Otolaryngology | Ulysses Genao MD | | | 2020 | Visit | | [address] [place] | | | | | | [address] [place], | | | | | | [place] [address] | | | | | | [phone] | | | | | | | | +--------+---------+ + + + documented as of this encounter Visit Diagnoses Not on filedocumented in this encounter"
--- OUTSIDE RECORDS SUMMARY | ~2019-10-17 | XMS | Encounter Summary ---
Demographics + + + | Address | [address] | | | [place] [address] | + + + | Home Phone [...] Providers + +------+ + | Care Parts Counter Clerk Name | Role | Phone | [...] + + | 05/11/ | Telephone | [facility] | Alanis, | Results | | 2017 | | MEDICINE [address] [place] [address] | MD Petrona | | | | | [facility] | [address] [place] [address] | | | | | [place] [address] | [place] [address] | | | | | [phone] | [phone] | | | | | | | [...] | | | | | [place] [address] | | | | | | [phone] | | | | | | | | +--------+---------+ + + + | 12/20/ | Office | Audiology | Elisabet Munson MS | | | 2019 | Visit | | [facility] [address] | | | | | | [place] [address] [place] | | | | | | [place] [address] | | | | | | [phone] | | | | | | | | +--------+---------+ + + + | 12/20/ | Office | Otolaryngology | Ulysses Genao MD | | | 2019 | Visit | | [address] [facility] | | | | | | [address] [place], | | | | | | [place] [address] | | | | | | [phone] | | | | | | | | +--------+---------+ + + + documented as of this encounter Visit Diagnoses + + | Diagnosis | + + | Acute bilateral low back pain with bilateral sciatica - Primary | + + documented in this encounter"
--- OUTSIDE RECORDS SUMMARY | ~2019-10-17 | XMS | Encounter Summary ---
Demographics + + + | Address | [address] | | | [place] [address] | + + + | Home Phone [...] Providers + +------+ + | Care Load Manager Name | Role | Phone | [...] + + | 04/08/ | Telephone | [facility] Division of | Carlos Arreola, | Swelling | | 2005 | | Gastroenterology/Hep | [address] | (ANDREEA) | | | | atology [address] | | | | | [address] | [place] [address] | | | | | Mailcode: PV310 | [phone] | | | | | [facility] | | | | | | [address] | | | | | | [place], [place] | | | | | | [address] | | | | | | [phone] | | | +--------+ + + + [...]
--- OUTSIDE RECORDS SUMMARY | ~2019-10-17 | XMS | Encounter Summary ---
Demographics + + + | Address | [address] | | | [place] [address] | + + + | Home Phone [...] + +------+ + | Care Dietary Aide Teacher Name | Role | Phone | [...] Refill Request | | 2009 | | [place] [address] | [address] | (SUCRALFATE) | | | | Bethanie Mailcode: CH4S | [facility] | | | | | [facility] | [place], [place] | | | | | and Healing, | [address] | | | | | [facility] | [phone] | | | | | Floor [place], [place] | | | | | | [address] | | | | | | [phone] | | | +--------+--------+ + + + [...]
--- OUTSIDE RECORDS SUMMARY | ~2019-10-17 | XMS | Encounter Summary ---
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 Diagnosis: Vandervoort I: 1. (296.32) Major depressive disorder, recurrent, moderate. 2. (309.24) Adjustment disorder with anxiety. 3. 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 Vandervoort II: Deferred Vandervoort III: abdominal pain, migraine headache, low back pain. Vandervoort IV: low finances Vandervoort V: GAF 55-60 Plan: Return in 3 months. Check mood, knee surgery, pacing, relaxation, activity, distraction. Continue cognitive/behavioral therapy. Discuss need for further sessions. Total time spent with patient was approximately 45 minutes. LUKASZ CHARLES PHD [facility] [address] [facility], 4th [place] [address] documented in this encount er Plan of [...]
--- OUTSIDE RECORDS SUMMARY | ~2019-10-17 | XMS | Encounter Summary ---
Demographics + + + | Address | [address] | | | [place] [address] | + + + | Home Phone [...] Providers + +------+ + | Care Data Security Coordinator Name | Role | Phone [...]
--- OUTSIDE RECORDS SUMMARY | ~2019-10-17 | XMS | Encounter Summary ---
Demographics + + + | Address | [address] | | | [place] [address] | + + + | Home Phone [...] Providers + +------+ + | Care Triage Nurse Name | Role | Phone | [...] + | 06/07/ | Refill | [facility] | Alanis, | Medication Refill | | 2017 | | MEDICINE [address] [place] [address] | MD Petrona | | | | | [facility] | [address] [place] [address] | | | | | [place] [address] | [place] [address] | | | | | [phone] | [phone] | | | | | | | [...] | | | | | [place] [address] | | | | | | [phone] | | | | | | | | +--------+---------+ + + + | 12/20/ | Office | Audiology | Elisabet Munson MS | | | 2019 | Visit | | [facility] [address] | | | | | | [place] [address] [place] | | | | | | [place] [address] | | | | | | [phone] | | | | | | | | +--------+---------+ + + + | 12/20/ | Office | Otolaryngology | Ulysses Genao MD | | | 2020 | Visit | | [address] [facility] | | | | | | [address] [place], | | | | | | [place] [address] | | | | | | [phone] | | | | | | | | +--------+---------+ + + + documented as of this encounter Visit Diagnoses Not on filedocumented in this encounter"
--- OUTSIDE RECORDS SUMMARY | ~2019-10-17 | XMS | Encounter Summary ---
Demographics + + + | Address | [address] | | | [place] [address] | + + + | Home Phone [...] Providers + +------+ + | Care Gold Stamper Name | Role | Phone | [...] | MD Beto | Density [facility] | | | | | Osteoporosis | [address] | [address] | | | | | Procedures | Ave | [address] | | | | | CONSULT TO | [place], [place] | Rd Mailcode: | | | | | BONE | [address] | [address] | | | | | DENSITOMETRY | Phone: | [address] | | | | | | [phone] | [place], [place] | | | | | | Fax: | [address] | | | | | | [phone] | Phone: | | | | | | | [phone] | | | | | | | Fax: | | | | | | | [phone] | +--------+--------+ + + + + Encounter Details +--------+---------+ + + + | Date | Type | Department | Care Team | Description | +--------+---------+ + + + | 08/23/ | Office | Endocrinology, | Sjh, Bmd Dexa | Other Osteoporosis | | 2007 | Visit | Diabetes and | [address] | (Primary Dx); | | | | Clinical Nutrition | [facility], | Symptomatic | | | | [address] | [place] [address] | Menopausal or Female | | | | [facility] Mailcode: | | Climacteric States; | | | | [address] [place] | | Disorder of Bone | | | | [facility], [place] | | and Cartilage, | | | | [address] | | Unspecified | | | | [phone] | | | +--------+---------+ + + + [...]
--- OUTSIDE RECORDS SUMMARY | ~2019-10-17 | XMS | Encounter Summary ---
Demographics + + + | Address | [address] | | | [place] [address] | + + + | Home Phone [...] Team Providers + +------+ + | Care Tassel Snipper Name | Role | Phone | [...] | - Disregard | | | | [facility] | | | | | | [address] | | | | | | Mailcode: CH15P | | | | | | [facility] | | | | | | and [place], | | | | | | [facility] | | | | | | [place], [place] | | | | | | [address] | | | | | | [phone] | | | +--------+ + + + [...]
--- OUTSIDE RECORDS SUMMARY | ~2019-10-17 | XMS | Encounter Summary ---
Demographics + + + | Address | [address] | | | [place] [address] | + + + | Home Phone [...] Providers + +------+ + | Care Highway Construction Inspector Name | Role | Phone [...] + + | 10/13/ | Telephone | [facility] | Alanis, | Appointment Question | 2019 | | MEDICINE [address] [place] [address] | MD Petrona | | | | | [facility] | [address] [place] [address] | | | | | [place] [address] | [place] [address] | | | | | [phone] | [phone] | | | | | | | [...] GABRIEL | | | | | | [place] [address] | | | | | | [phone] | | | | | | | | +--------+---------+ + + + | 12/20/ | Office | Audiology | Elisabet Munson MS | | | 2019 | Visit | | [facility] [address] | | | | | | [place] [address] [place] | | | | | | [place] [address] | | | | | | [phone] | | | | | | | | +--------+---------+ + + + | 12/20/ | Office | Otolaryngology | Ulysses Genao MD | | | 2020 | Visit | | [address] [facility] | | | | | | [address] [place], | | | | | | [place] [address] | | | | | | [phone] | | | | | | | | +--------+---------+ + + + documented as of this encounter Visit Diagnoses Not on filedocumented in this encounter"
--- OUTSIDE RECORDS SUMMARY | ~2019-10-17 | XMS | Encounter Summary ---
Demographics + + + | Address | [address] | | | [place] [address] | + + + | Home Phone [...] Team Providers + +------+ + | Care Source Inspector Name | Role | Phone | [...] as of this encounter Progress Notes Interface, Tanning Wheel Operator In - 01/21/2006 1:09 AM [facility] [place] [address] [address], [place] [address] or March 15, 2002 Pedrito Gutierrez M.D. [facility] [address] [place] [address] RE: BELINDA MEEHAN MR #: [id number] Dear Dr. Gutierrez: I had the pleasure [...] to set her up to see a framing consultant in Neurology or the [facility] [...] to contact me. Sincerely, Issac Meeks M.D. glassware finisher Division of Endocrinology, Diabetes, and Clinical Radar Scientist of Metabolic Disorders Clinic [employer] / SHARIF [id number] / [id number] / [id number] / Tdocumented in this encounter Plan of Treatment Not on filedocumented as of this encounter Visit Diagnoses Not on filedocumented in this encounter"
--- OUTSIDE RECORDS SUMMARY | ~2019-10-17 | XMS | Encounter Summary ---
Demographics + + + | Address | [address] | | | [place] [address] | + + + | Home Phone [...] Providers + +------+ + | Care Manager Utilities Name | Role | Phone | [...] as of this encounter Progress Notes Interface, Bar Host In - 09/13/2005 2:06 AM PST [id number] GEOV[facility] Date: 07/03/2005 Clinic: [...] which are pending through the laboratory in [place]. Allergies: PENICILLIN, CODEINE, KEFLEX, SULFA, CIPRO, AND [...] which were done several days ago in [place]. Beto Meeks M.D. PD / HS [id number] / [id number] / [id number] / [id number] cc: Chris Padgett M.D. [facility] Electronically signed by Beto Meeks 09-12-2005 02:23:07 AM documented i n this encounter Plan of Treatment Not on filedocumented as of this encounter Visit Diagnoses Not on filedocumented in this encounter"
--- OUTSIDE RECORDS SUMMARY | ~2019-10-17 | XMS | Encounter Summary ---
Demographics + + + | Address | [address] | | | [place] [address] | + + + | Home Phone [...] Providers + +------+ + | Care Assembler Leather Goods Name | Role | Phone | + [...] | | | | | Encounter | [place], [place] | [place] | | | | | for | [address] | [address] | | | | | long-term | | Phone: | | | | | (current) | | [phone] | | | | | use of other | | Fax: | | | | | medications | | [phone] | | | | | LBP (low [...] 08/09/ | Office | Pain Center at [facility] | Lukasz Charles, | Major depressive | | 2013 | Visit | [address] | PhD [address] | disorder, recurrent | | | | Mailcode: CH15P | [place], [place] | episode, moderate | | | | [place] [facility] | [address] | ([facility]) (Primary Dx); | | | | and Healing, | [phone] | LBP (low back pain); | | | | | | Fibromyalgia; | | | | Floor [place], [place] | | Adjustment disorder | | | | [address] | | with anxiety | | | | [phone] | | | +--------+---------+ + + + [...] gives her a lot of motivation. Diagnosis: Wallace I: 1. (296.32) Major depressive disorder, recurrent, moderate. 2. (309.24) Adjustment disorder with anxiety. Wallace II: Deferred Wallace III: abdominal pain, migraine headache, low back pain, fibromyalgia. Wallace IV: low finances Wallace V: GAF 55-60 Plan: return in 1 month. Check mood, pain, activity, stress management. Ask about any ch anges at home, taking care of her own self, sleeping. Continue cognitive/behavioral therapy . Total time spent with patient was approximately 45 minutes. LUKASZ CHARLES PHD [facility] [address] [place] [address] And [facility], [address] [place] [address] documented in this en counter Plan of [...]
--- OUTSIDE RECORDS SUMMARY | ~2019-10-17 | XMS | Encounter Summary ---
Demographics + + + | Address | [address] | | | [place] [address] | + + + | Home Phone [...] Providers + +------+ + | Care Pot Liner Name | Role | Phone | [...] | | | [facility] | [place], [place] | | | | | [address] | [address] | | | | | [address] | [phone] | | | | | Physician's | | | | | | Pavilion, unm cancer center floor | | | | | | [place], [place] | | | | | | [address] | | | | | | [phone] | | | +--------+ + + + [...] by | | | | | | [facility] | | | | | | Regional Laboratory. | | | | + + + + + + + + | Specimen | + + | | + + + + + + + | Performing | Address | City/State/Zipcode | Phone Number | | Organization | | | | + + + + + | [facility] | [address] | [place] [address] | | | LABORATORY | | | [...] | pg/mL | | | | | [facility] | | | | | | Laboratory. | | | | + + + + + + + + | Specimen | + + | | + + + + + + + | Performing | Address | City/State/Zipcode | Phone Number | | Organization | | | | + + + + + | [facility] | [address] | [place] [address] | | | LABORATORY | | | [facility] | [address] | [place] [address] | | | PATHOLOGY | [address] | | | + + + + + | [facility] DEPARTMENT OF | [address] | [place] [address] | | | PATHOLOGY | [address] | | | + + + + + documented in this encounter Visit Diagnoses Not on filedocumented in this encounter"
--- OUTSIDE RECORDS SUMMARY | ~2019-10-17 | XMS | Encounter Summary ---
Demographics + + + | Address | [address] | | | [place] [address] | + + + | Home Phone [...] | | | | Clinical Nutrition | [place], [place] | | | | | [address] | [address] | | | | | Loop Mailcode: OPC5 | [phone] | | | | | Outpatient Clinic | | | | | | [facility] | | | | | | [place] [address] | | | | | | [phone] | | | +--------+ + + + [...] + + + | [facility] | [address] | [place] [address] | | | LABORATORY | | | [...] + + + | [facility] | [address] | [place] [address] | | | LABORATORY | | | [...] Blood Test performed by | | | [facility]. | | + + + + + + + + | Performing | Address | City/State/Zipcode | Phone Number | | Organization | | | | + + + + + | [facility] | [address] | [place] [address] | | | LABORATORY | | | | + + + + + documented in this encounter Visit Diagnoses Not on filedocumented in this encounter"
--- OUTSIDE RECORDS SUMMARY | ~2019-10-17 | XMS | Encounter Summary ---
Demographics + + + | Address | [address] | | | [place] [address] | + + + | Home Phone [...] Providers + +------+ + | Care Batch Plant Supervisor Name | Role | Phone | [...] 2007 | Only | [address] | [phone] | | | | | Rd Mailcode: RPB07 | | | | | | [place], [place] | | | | | | [address] | | | | | | [phone] | | | +--------+ + + + [...] [facility] DEPARTMENT OF | [facility] | [place] [address] | | | PATHOLOGY | [address] | | | + + + + + | [place] DEPARTMENT OF | [facility] | [place] [address] | | | PATHOLOGY | [address] | | | + + + + + documented in this encounter Visit Diagnoses Not on filedocumented in this encounter"
--- OUTSIDE RECORDS SUMMARY | ~2019-10-17 | XMS | Encounter Summary ---
Demographics + + + | Address | [address] | | | [place] [address] | + + + | Home Phone [...] Team Providers + +------+ + | Care Time Study Engineer Name | Role | Phone | [...] | [address] [place] | [address] [facility] | left-sided sciatica | | | | [place] [address] | [place] [address] | (Primary Dx) | | | | [phone] | [phone] | | | | | | | [...] | | | | | [place] [address] | | | | | | [phone] | | | | | | | | +--------+---------+ + + + | 12/20/ | Office | Audiology | Elisabet Munson MS | | | 2019 | Visit | | [facility] | | | | | | [place] [address] [address] | | | | | | [place] [address] | | | | | | [phone] | | | | | | | | +--------+---------+ + + + | 12/20/ | Office | Otolaryngology | Ulysses Genao MD | | | 2019 | Visit | | [address] [facility] | | | | | | [address] [place], | | | | | | [place] [address] | | | | | | [phone] | | | | | | | [...]
--- OUTSIDE RECORDS SUMMARY | ~2019-10-17 | XMS | Encounter Summary ---
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 female [facility] Comprehensive Pain [...] be ing reviewed by Dr Constantino SHEEHAN coal cutter. MRI of the brain and it was normal A Brief Pain Inventory and a pain drawing has be completed, which I reviewed. [facility] Brief Pain Inventory: (ten= worst possible [...] Ogden PhD TPI every 5-6 months with [facility] Rheumatology Hilda Saenz Review [...] history, fam bijan history, or social history. [facility] Encorinology [facility] ACNP ThuNovember 12, 2007 Assessment: 1) [...] continue to discuss with her options at [facility] with, hopefully, coordinatio n [...] 300 mg) by oral route once daily onidgfbgsq-pnkkimxejoxry-whysglcj (FIORICET) 50-325-40 mg Oral Tablet take 2 [...] DISK BULGE. Transcribed By: Armaan Mata : [id number] : 1442 Approved By: Radiologist: Physical Examination: [...] concerns or questions. DELFINA MOLINA [facility] Mail code CH 4P [facility] [address] [place] [address] Ailyn Foster - 03/03/20 08 10:24 [...]
--- OUTSIDE RECORDS SUMMARY | ~2019-10-17 | XMS | Encounter Summary ---
Demographics + + + | Address | [address] | | | [place] [address] | + + + | Home Phone [...] Providers + +------+ + | Care Heel Attacher Name | Role | Phone | [...] + + | 04/25/ | Refill | [facility] | Alanis, | Medication Refill | | 2016 | | MEDICINE [address] [place] [address] | MD Petrona | | | | | [facility] | [address] [place] [address] | | | | | [place] [address] | [place] [address] | | | | | [phone] | [phone] | | | | | | | [...] | | | | | [place] [address] | | | | | | [phone] | | | | | | | | +--------+---------+ + + + | 12/20/ | Office | Audiology | Elisabet Munson MS | | | 2019 | Visit | | [facility] [address] | | | | | | [place] [address] [place] | | | | | | [place] [address] | | | | | | [phone] | | | | | | | | +--------+---------+ + + + | 12/20/ | Office | Otolaryngology | Ulysses Genao MD | | | 2020 | Visit | | [address] [facility] | | | | | | [address] [place], | | | | | | [place] [address] | | | | | | [phone] | | | | | | | | +--------+---------+ + + + documented as of this encounter Visit Diagnoses Not on filedocumented in this encounter"
--- OUTSIDE RECORDS SUMMARY | ~2019-10-17 | XMS | Clinical Summary ---
Demographics + + + | Address | [address] | | | [place] [address] | + + + | Home Phone [...] Providers + +------+ + | Care Enforcement Manager Name | Role | Phone | + +------+ + | Sulaiman Carrera MD | PCP | | + +------+ + Source Comments MARK is fully live on both [facility] and [facility] InPatient.[facility] Allergies + + + + [...] + + + + + + | Bmuzttx-Ndgaqgaqos-T | | | 08/29/19 | Balance problems [...] in | | | | | | [facility]) | | | | | | [...] | imbalances, sleep apnea, neck pain, medication pexvzegTDB11 | + + + + + | [...] | B | | sent | | [place], [place] | | | | | | | | [address] | | + +--------+ +--------+ + +--------+ | SECURITY ARCHITECT MEDICAID | SECURITY ARCHITECT | xxxxxxxx | | | | Medica [...] | 1960 | [phone] | [place] [address] | | | bijan | | | 3 (Home) | | + +--------+ +--------+ + + | Belinda Meehan | Medica | Self | [birth year] | [address] | | | re | | 9 | [phone] | [place] [address] | | | Recurr | | | 3 (Home) | | | | ing | | | | | + +--------+ +--------+ + + Advance Directives + + + + + | Type | Date Recorded | Patient | Explanation | | | | Pick Up Attendant | | + + + + + | Advance | 11/19/2004 12:00 | | ADVANCE DIRECTIVE | | Directives and | AM | | | | Living Will | | | | + + + + + | Power of | | | | | Pace Analyst | | | | + + + [...]
--- OUTSIDE RECORDS SUMMARY | ~2019-10-17 | XMS | Encounter Summary ---
Demographics + + + | Address | [address] | | | [place] [address] | + + + | Home Phone [...] Providers + +------+ + | Care Staff Home Therapy Rn Name | Role | Phone | [...] [address] | | | | | [place], [place] | [place] | | | | | [address] | [address] | | | | | [phone] | [phone] | | | | | | | [...] DEPARTMENT OF | [address] | [place] [address] | | | PATHOLOGY | [address] | | | + + + + + | [facility] DEPARTMENT OF | [address] | [place] [address] | | | PATHOLOGY | [address] [...] + + | [facility] DEPARTMENT OF | [address] | [place] [address] | | | PATHOLOGY | [address] | | | + + + + + | [facility] DEPARTMENT OF | [address] | [place] [address] | | | PATHOLOGY | [address] [...] Performed At | + + + | [id number] Estimated GFR > 60 mL/min/1.73 sq m if non- | [facility] | | [id number] Estimated GFR > 60 mL/min/1.73 sq m [...] [facility] | [address] | [place] [address] | | | PATHOLOGY | [address] | | | + + + + + | [facility] | [address] | [place] [address] | | | PATHOLOGY | [address] | | | + + + + + documented in this encounter Visit Diagnoses Not on filedocumented in this encounter"
--- OUTSIDE RECORDS SUMMARY | ~2019-10-17 | XMS | Clinical Summary ---
Demographics + + + | Address | [address] | | | [place] [address] | + + + | Home Phone [...] Providers + +------+ + | Care Cafeteria Director Name | Role | Phone | [...] + + + + + + | Uzidioaawt-Bdjm-Uybv | Rash | Low | | duplicate | | eine | | | | | + + + + + + | Ujkoavygqh-Yipw-Utrj | Hives, Rash | Low | 03/25/20 | | | eine | | | 17 | | + + + + + + | Dfhkcqcmyg-Vxm-Qulc- | Other (See Comments) | Medium | [...] | 19 | | | | : terminal make up operator | Decreased | | | | [...] | | | | | [place] [address] | | | | | | [phone] | | | | | | | | +--------+---------+ + + + | 12/20/ | Office | Audiology | Elisabet Munson MS | | | 2019 | Visit | | [facility] [address] | | | | | | [place] | | | | | | [place] [address] | | | | | | [phone] | | | | | | | | +--------+---------+ + + + | 12/20/ | Office | Otolaryngology | Ulysses Genao MD | | | 2020 | Visit | | [address] [place] | | | | | | [address] [place], | | | | | | [place] [address] | | | | | | [phone] | | | | | | | [...] +--------+ +---------+--------+ | MEDICARE | MEDICA | [id number] | 07/16/19 | [phone] | | Medica | | | RE | | 03-Pre | 5 | | re | | | PART A | | sent | | | | | | AND B | | | | | | + +--------+ +--------+ +---------+--------+ | [employer] | MODA | [id number] | 06/16/19 | [phone] | | Medica [...] 9 | [id number] | [place] [address] | | | bijan | | | 0 (Home) | | + +--------+ +--------+ + + Advance Directives + + + + + | Type | Date Recorded | Patient | Explanation | | | | Watermaster | | + + + + + | Power of | | | | | Global Process Owner | | | | + + + + + | Advance | 10/14/2018 10:09 | | | | Directive | AM | | | + + + + +
--- OUTSIDE RECORDS SUMMARY | ~2019-10-17 | XMS | Encounter Summary ---
Demographics + + + | Address | [address] | | | [place] [address] | + + + | Home Phone [...] Providers + +------+ + | Care Bi Solutions Architect Name | Role | Phone [...] + + | 05/26/ | Telephone | [facility] | Alanis, | Diarrhea | | 2018 | | MEDICINE [address] [place] [address] | MD Petrona | | | | | [facility] | [address] [place] [address] | | | | | [place] [address] | [place] [address] | | | | | [phone] | [phone] | | | | | | | [...] | | | | | [place] [address] | | | | | | [phone] | | | | | | | | +--------+---------+ + + + | 12/20/ | Office | Audiology | Elisabet Munson MS | | | 2019 | Visit | | [facility] [address] | | | | | | [address] [place] [address] [place] | | | | | | [place] [address] | | | | | | [phone] | | | | | | | | +--------+---------+ + + + | 12/20/ | Office | Otolaryngology | Ulysses Genao MD | | | 2020 | Visit | | [address] [facility] | | | | | | [address] [place], | | | | | | [place] [address] | | | | | | [phone] | | | | | | | | +--------+---------+ + + + documented as of this encounter Visit Diagnoses Not on filedocumented in this encounter"
--- OUTSIDE RECORDS SUMMARY | ~2019-10-17 | XMS | Encounter Summary ---
Demographics + + + | Address | [address] | | | [place] [address] | + + + | Home Phone [...] Team Providers + +------+ + | Care Platemaker Name | Role | Phone | + [...] | | | | | elsewhere | [place], [place] | [place], [place] | | | | | classified | [address] | [address] | | | | | Procedures | | Phone: | | | | | [place] | | [phone] | | | | | PSYCHOTHERPY | | Fax: | | | | | , OFFICE | | [phone] | | | | | (39-21) | | | +--------+--------+ + + + + Encounter Details +--------+---------+ + + + | Date | Type | Department | Care Team | Description | +--------+---------+ + + + | 07/15/ | Office | [facility] | Lukasz Charles, | Major Depressive | | 2006 | Visit | [address] | PhD [address] | Disorder, Recurrent | | | | Mailcode: CH15P | [place], [place] | Episode, Moderate | | | | [facility] | [address] | ([facility]); Cervical | | | | and Healing, | [phone] | Spondylosis without | | | | Building | | Myelopathy; Migraine | | | | Floor [place], [place] | | Headache; | | | | [address] | | Adjustment Disorder | | | | [phone] | | with Anxiety | +--------+---------+ + [...] She appears to have good insight. Diagnosis: [place] I: 1. (296.32) Major depressive disorder, recurrent, moderate. 2. (309.24) Adjustment disorder with anxiety. 3. 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 [place] II: Deferred [place] III: abdominal pain, migraine headache, low back pain. [place] IV: low finances [place] V: GAF 50 Plan: Return in 2 weeks. Check relaxation and activity. Check mood. Continue cognitive/behavio ral therapy. Total time spent with patient was approximately 50 minutes. LUKASZ CHARLES PHD [facility] [address] [place] [address] And [facility], [address] [place] [address] documented in [facility] Plan of Treatment + + +--------+ [...] | | | ([facility]) Cervical | | | | | | Spondylosis without | | | | | | Myelopathy Migraine | | | | | | Headache | | | | | | Adjustment Disorder | | | | | | with Anxiety | | + + +--------+ + + | CT BIOFEEDBACK | Procedures | Routin | Cervical [...]
--- OUTSIDE RECORDS SUMMARY | ~2019-10-17 | XMS | Encounter Summary ---
Demographics + + + | Address | [address] | | | [place] [address] | + + + | Home Phone [...] Providers + +------+ + | Care Tennis Director Name | Role | Phone | [...] + + | 01/25/ | Telephone | [facility] | Alanis, | Medical Problem | | 2017 | | MEDICINE [address] [place] [address] | MD Petrona | | | | | [facility] | [address] [place] [address] | | | | | [place] [address] | [place] [address] | | | | | [phone] | [phone] | | | | | | | [...] | | | | | [place] [address] | | | | | | [phone] | | | | | | | | +--------+---------+ + + + | 12/20/ | Office | Audiology | Elisabet Munson MS | | | 2019 | Visit | | [facility] [address] | | | | | | [place] [address] [place] | | | | | | [place] [address] | | | | | | [phone] | | | | | | | | +--------+---------+ + + + | 12/20/ | Office | Otolaryngology | Ulysses Genao MD | | | 2020 | Visit | | [address] [place] | | | | | | [address] [place], | | | | | | [place] [address] | | | | | | [phone] | | | | | | | | +--------+---------+ + + + documented as of this encounter Visit Diagnoses Not on filedocumented in this encounter"
--- OUTSIDE RECORDS SUMMARY | ~2019-10-17 | XMS | Encounter Summary ---
Demographics + + + | Address | [address] | | | [place] [address] [...] Team Providers + +------+ + | Care Ocular Care Technician Name | Role | Phone [...]
--- OUTSIDE RECORDS SUMMARY | ~2019-10-17 | XMS | Encounter Summary ---
Demographics + + + | Address | [address] | | | [place] [address] | + + + | Home Phone [...] Providers + +------+ + | Care Heater Installer Name | Role | Phone | + +------+ + | Pedrito Gutierrez MD | PCP | | + +------+ + Encounter Details +--------+ + + + + | Date | Type | Department | Care Team | Description | +--------+ + + + + | 11/24/ | Respiratory | | Other, Faculty | | | 2003 | | | [phone] | | | | Therapy-[facility] | | [...]
--- OUTSIDE RECORDS SUMMARY | ~2019-10-17 | XMS | Encounter Summary ---
Demographics + + + | Address | [address] | | | [place] [address] | + + + | Home Phone [...] Providers + +------+ + | Care Manager Technical Name | Role | Phone | + [...] + | 04/02/ | Refill | [facility] | Alanis, | Medication Refill | | 2018 | | MEDICINE [address] [place] [address] | MD Petrona | | | | | [facility] | [address] [place] [address] | | | | | [place] [address] | [place] [address] | | | | | [phone] | [phone] | | | | | | | [...] | | | | | [place] [address] | | | | | | [phone] | | | | | | | | +--------+---------+ + + + | 12/20/ | Office | Audiology | Elisabet Munson MS | | | 2019 | Visit | | [facility] [address] | | | | | | [place] [address] [place] | | | | | | [place] [address] | | | | | | [phone] | | | | | | | | +--------+---------+ + + + | 12/20/ | Office | Otolaryngology | Ulysses Genao MD | | | 2020 | Visit | | [address] [facility] | | | | | | [address] [place], | | | | | | [place] [address] | | | | | | [phone] | | | | | | | | +--------+---------+ + + + documented as of this encounter Visit Diagnoses Not on filedocumented in this encounter"
--- OUTSIDE RECORDS SUMMARY | ~2019-10-17 | XMS | Encounter Summary ---
Demographics + + + | Address | [address] | | | [place] [address] | + + + | Home Phone [...] Team Providers + +------+ + | Care Rooming House Keeper Name | Role | Phone | [...] as of this encounter Progress Notes Interface, Disability Insurance Claim Examiner In - 01/11/2005 5:17 PM PDT [place] [facility] [address] [place] [address] or June 26, 2003 Pedrito Gutierrez M.D. [address] [place] [address] RE: BELINDA MEEHAN MR #: [id number] Dear Dr. Gutierrez: I had the pleasure of seeing your patient, Ms. Belinda Meehan, today in the [facility] Division of Rheumatology Clinic. She was [...] Sincerely, Sesar Nash M.D. NURIA / SHARIF [id number] / [id number] / [id number] / [id number] cc: Kelley Alegre [address] [place] [address] FAX: [phone] signed by Interface, Disability Insurance Claim Examiner In at 01/11/2005 5:17 PM PDTdocumented in this encounter Plan of Treatment Not on filedocumented as of this encounter Visit Diagnoses Not on filedocumented in this encounter"
--- OUTSIDE RECORDS SUMMARY | ~2019-10-17 | XMS | Encounter Summary ---
Demographics + + + | Address | [address] | | | [place] [address] | + + + | Home Phone [...] | | 2006 | | [facility] at [facility] | MD Darrion,PhD [address] | | | | | for Health and | [address] | | | | | Healing [address] | [place], [place] | | | | | Bethanie Mailcode: | [address] | | | | | CH12A | [phone] | | | | | Health and Healing, | | | | | | [facility] | | | | | | Floor [place], [place] | | | | | | [address] | | | | | | [phone] | | | +--------+ + + + [...]
--- OUTSIDE RECORDS SUMMARY | ~2019-10-17 | XMS | Encounter Summary ---
Demographics + + + | Address | [address] | | | [place] [address] | + + + | Home Phone [...] Providers + +------+ + | Care Athletic Turf Worker Name | Role | Phone | [...] + + | 09/12/ | Telephone | [facility] | Miranda Lambert, | Medication [...] [place] | | | | | | [address] | | | | | | [phone] | | | +--------+ + + + [...]
--- OUTSIDE RECORDS SUMMARY | ~2019-10-17 | XMS | Encounter Summary ---
Demographics + + + | Address | [address] | | | [place] [address] | + + + | Home Phone [...] +------+ + | Care Telegraphic Typewriter Operator Chief Name | Role | Phone | [...] | | | | | Procedures | [facility] [place] | [address] | | | | | CONSULT TO | [address] | for Health | | | | | BONE | Phone: | and Healing, | | | | | DENSITOMETRY | [phone] | Building [address] | | | | | | Fax: | [place], [place] | | | | | | [phone] | [address] | | | | | | | Phone: | | | | | | | [phone] | | | | | | | Fax: | | | | | | | [phone] | +--------+ + + + + + [...] | | | Center for [facility] | [place], [place] | Bypass for Obesity | | | | and Healing, | [address] | | | | | [facility] | [phone] | | | | | Floor [place], [place] | | | | | | [address] | | | | | | [phone] | | | +--------+---------+ + + + [...]
--- OUTSIDE RECORDS SUMMARY | ~2019-10-17 | XMS | Encounter Summary ---
Demographics + + + | Address | [address] | | | [place] [address] | + + + | Home Phone [...] + + | 02/09/ | Telephone | [facility] | Alanis, | Other | | 2019 | | MEDICINE [address] [place] [address] | MD Petrona | | | | | [facility] | [address] [place] [address] | | | | | [place] [address] | [place] [address] | | | | | [phone] | [phone] | | | | | | | [...] | | | [facility] [address] | | | | | | [place] [address] | | | | | | [phone] | | | | | | | | +--------+---------+ + + + | 12/20/ | Office | Audiology | Elisabet Munson MS | | | 2019 | Visit | | [facility] [address] | | | | | | [place] [address] [place] | | | | | | [place] [address] | | | | | | [phone] | | | | | | | | +--------+---------+ + + + | 12/20/ | Office | Otolaryngology | Ulysses Genao MD | | | 2019 | Visit | | [address] [facility] | | | | | | [address] [place], | | | | | | [place] [address] | | | | | | [phone] | | | | | | | | +--------+---------+ + + + documented as of this encounter Visit Diagnoses Not on filedocumented in this encounter"
--- OUTSIDE RECORDS SUMMARY | ~2019-10-17 | XMS | Encounter Summary ---
Demographics + + + | Address | [address] | | | [place] [address] | + + + | Home Phone [...] as of this encounter Progress Notes Interface, Instructor Of Education In - 01/12/2005 8:09 AM PDT [id number] [facility] Date: 03/07/2004 Clinic: [facility] TELEPHONE CONVERSATION Subjective: Belinda contacted [...] cholelithiasis. She is welcome to come to [facility] for evaluation; however, given the distance of a 4-hour travel time, we found it would be more expeditious for her to be seen at her local hospital in [place]. The patient also agrees with this plan [...] additional followup as needed. Christie Kirkpatrick / [id number] / [id number] / [id number] / documented i n this encounter Plan of Treatment Not on filedocumented as of this encounter Visit Diagnoses Not on filedocumented in this encounter"
--- OUTSIDE RECORDS SUMMARY | ~2019-10-17 | XMS | Encounter Summary ---
Demographics + + + | Address | [address] | | | [place] [address] | + + + | Home Phone [...] Providers + +------+ + | Care Wheat Shipper Name | Role | Phone | [...] | | | | | | [address] [place], [place] | | | | | | [address] | | | | | | [phone] | | | +--------+ + + + [...]
--- OUTSIDE RECORDS SUMMARY | ~2019-10-17 | XMS | Encounter Summary ---
Demographics + + + | Address | [address] | | | [place] [address] [...] Team Providers + +------+ + | Care Coremaking Supervisor Name | Role | Phone | [...]
--- OUTSIDE RECORDS SUMMARY | ~2019-10-17 | XMS | Encounter Summary ---
Demographics + + + | Address | [address] | | | [place] [address] | + + + | Home Phone [...] Providers + +------+ + | Care Sales Lead Name | Role | Phone | [...] + + | 06/24/ | Telephone | [facility] | Alanis, | Medication Orders | | 2018 | | MEDICINE [address] [place] [address] | MD Petrona | | | | | [facility] | [address] [place] [address] | | | | | [place] [address] | [place] [address] | | | | | [phone] | [phone] | | | | | | | [...] HOSPITAL | | | | | | [place] [address] | | | | | | [phone] | | | | | | | | +--------+---------+ + + + | 12/20/ | Office | Audiology | Elisabet Munson MS | | | 2019 | Visit | | [facility] [address] | | | | | | [address] | | | | | | [place] [address] | | | | | | [phone] | | | | | | | | +--------+---------+ + + + | 12/20/ | Office | Otolaryngology | Ulysses Genao MD | | | 2020 | Visit | | [address] [facility] | | | | | | [address] [place], | | | | | | [place] [address] | | | | | | [phone] | | | | | | | | +--------+---------+ + + + documented as of this encounter Visit Diagnoses Not on filedocumented in this encounter"
--- OUTSIDE RECORDS SUMMARY | ~2019-10-17 | XMS | Encounter Summary ---
Demographics + + + | Address | [address] | | | [place] [address] | + + + | Home Phone [...] Providers + +------+ + | Care Rn Hemo Dialysis Name | Role | Phone | [...]
--- OUTSIDE RECORDS SUMMARY | ~2019-10-17 | XMS | Encounter Summary ---
Demographics + + + | Address | [address] | | | [place] [address] | + + + | Home Phone [...] Team Providers + +------+ + | Care Didactic Program In Dietetics Director Name | Role | Phone [...] + + | 07/27/ | Telephone | [facility] | Alanis, | Other | | 2020 | | MEDICINE [address] [place] [address] | MD Petrona | | | | | [facility] | [address] [place] [address] | | | | | [place] [address] | [place] [address] | | | | | [phone] | [phone] | | | | | | | [...] | | | | | [place] [address] | | | | | | [phone] | | | | | | | | +--------+---------+ + + + | 12/20/ | Office | Audiology | Elisabet Munson MS | | | 2019 | Visit | | [facility] [address] | | | | | | [place] [address] [place] | | | | | | [place] [address] | | | | | | [phone] | | | | | | | | +--------+---------+ + + + | 12/20/ | Office | Otolaryngology | Ulysses Genao MD | | | 2019 | Visit | | [address] [facility] | | | | | | [address] [place], | | | | | | [place] [address] | | | | | | [phone] | | | | | | | | +--------+---------+ + + + documented as of this encounter Visit Diagnoses Not on filedocumented in this encounter"
--- OUTSIDE RECORDS SUMMARY | ~2019-10-17 | XMS | Encounter Summary ---
Demographics + + + | Address | [address] | | | [place] [address] | + + + | Home Phone [...] Providers + +------+ + | Care Veterans Employment Representative Name | Role | Phone [...] | | | | | | | [place], [place] | | | | | | | [address] | | | | | | | Phone: | | | | | | | [phone] | | | | | | | Fax: | | | | | | | [phone] | +--------+--------+ + + + + Encounter Details +--------+---------+ + + + | Date | Type | Department | Care Team | Description | +--------+---------+ + + + | 01/05/ | Office | Digestive Health | Eliezer Ruano, | Follow-Up | | 2007 | Visit | Center [address] | [address] [facility] | Examination | | | | Avjennifer Mailcode: CH4S | [address] | Following Surgery | | | | [facility] | [place], [place] | (Primary Dx) | | | | and Healing, | [address] | | | | | Building | [phone] | | | | | Floor [place], [place] | | | | | | [address] | | | | | | [phone] | | | +--------+---------+ + + + [...] and plan of care. ELIEZER RUANO MD [facility] [address] [place] [address] And [facility], [address] [place] [address] Tejas Trevino - 01/05 1:54 PM PDTS: Pt is here one week postop lysis of adhesions. She is doing well. She i s still having some pain. PE: Midline incision closed with reshma. [place] removed. There was a small opening of [...]
--- OUTSIDE RECORDS SUMMARY | ~2019-10-17 | XMS | Encounter Summary ---
Demographics + + + | Address | [address] | | | [place] [address] | + + + | Home Phone [...] Providers + +------+ + | Care Vp Of Global Marketing Name | Role | Phone | [...] Rd | | | | | | [place], [place] | | | | | | [address] | | | +--------+ + + + [...]
--- OUTSIDE RECORDS SUMMARY | ~2019-10-17 | XMS | Encounter Summary ---
Demographics + + + | Address | [address] | | | [place] [address] | + + + | Home Phone [...] Team Providers + +------+ + | Care Beadworker Name | Role | Phone | + [...]
--- OUTSIDE RECORDS SUMMARY | ~2019-10-17 | XMS | Encounter Summary ---
[...] Providers + +------+ + | Care Cotton Breeder Name | Role | Phone | [...] Other (wondering | | 2008 | | [place] [address] | [address] | ablout colonoscopy) | | | | Ave Mailcode: CH4S | [facility] | | | | | [facility] | [place], [place] | | | | | and [place], | [address] | | | | | [facility] | [phone] | | | | | [place], [place] | | | | | | [address] | | | | | | [phone] | | | +--------+ + + + [...]
--- OUTSIDE RECORDS SUMMARY | ~2019-10-17 | XMS | Encounter Summary ---
Demographics + + + | Address | [address] | | | [place] [address] | + + + | Home Phone [...] Team Providers + +------+ + | Care Disabilities Caregiver Name | Role | Phone | [...] + + | 12/28/ | Telephone | [facility] | Alanis, | Radiology | | 2018 | | MEDICINE [address] [place] [address] | MD Petrona | Appointment | | | | [facility] | [address] [place] [address] | | | | | [place] [address] | [place] [address] | | | | | [phone] | [phone] | | | | | | | [...] | | | | | [place] [address] | | | | | | [phone] | | | | | | | | +--------+---------+ + + + | 12/20/ | Office | Audiology | Elisabet Munson MS | | | 2019 | Visit | | [facility] [address] | | | | | | [address] | | | | | | [place] [address] | | | | | | [phone] | | | | | | | | +--------+---------+ + + + | 12/20/ | Office | Otolaryngology | Ulysses Genao MD | | | 2020 | Visit | | [address] | | | | | | [address] [place], | | | | | | [place] [address] | | | | | | [phone] | | | | | | | | +--------+---------+ + + + documented as of this encounter Visit Diagnoses Not on filedocumented in this encounter"
--- OUTSIDE RECORDS SUMMARY | ~2019-10-17 | XMS | Encounter Summary ---
Demographics + + + | Address | [address] | | | [place] [address] | + + + | Home Phone [...] Providers + +------+ + | Care Trauma Program Manager Name | Role | Phone | + +------+ + | Pedrito Gutierrez MD | PCP | | + +------+ + Encounter Details +--------+---------+ + + + | Date | Type | Department | Care Team | Description | +--------+---------+ + + + | 11/24/ | Office | Preoperative | 2, [facility] [address] | Other Specified | | 2007 | Visit | Medicine Clinic at | [facility] [address] | Pre-Operative | | | | [facility] 4th Floor [address] | [place] [address] | Examination; | | | | [address] | | Hemorrhagic Disorder | | | | Mailcode: CH4S | | due to Intrinsic | | | | [facility] | | Circulating | | | | and Healing, | | Anticoagulants | | | | Building 1,4th [facility] | | | | | | [place], [place] | | | | | | [address] | | | | | | [phone] | | | +--------+---------+ + + + [...] DEPARTMENT OF | [address] | [place] [address] | | | PATHOLOGY | [address] | | | + + + + + | [facility] DEPARTMENT OF | [address] | [place] [address] | | | PATHOLOGY | [address] [...] + + + | [facility] DEPARTMENT OF | [address] [facility] | [place] [address] | | | PATHOLOGY | [address] | | | + + + + + | [facility] DEPARTMENT OF | [address] [facility] | [place] [address] | | | PATHOLOGY | [address] [...] DEPARTMENT OF | [address] | [place] [address] | | | PATHOLOGY | [address] | | | + + + + + | [facility] DEPARTMENT OF | [address] | [place] [address] | | | PATHOLOGY | [address] [...] Performed At | + + + | [id number] Estimated GFR > 60 mL/min/1.73 sq m if non- | [facility] | | Armenian [id number] Estimated GFR > 60 mL/min/1.73 sq m if | DEPARTMENT OF | | Armenian GFR is estimated using the MDRD equation [...] + | [facility] | [address] [facility] | [place] [address] | | | PATHOLOGY | [address] | | | + + + + + | [facility] | [address] [place] [address] | [place] [address] | | | PATHOLOGY | [address] [...] + + | Ordered by an | [facility] DEPT OF | | unspecified provider. Please click on view image for the detailed | CARDIOLOGY | | interpretation from [employer] results. | | |results. | | | | | + + + + + + + + | Performing | Address | City/State/Zipcode | Phone Number | | Organization | | | | + + + + + | [facility] DEPT OF | [address] | [place], [place] | | | CARDIOLOGY | [address] | [address] | | + + + + + | [facility] DEPT OF | [address] | [place], [place] | | | CARDIOLOGY | [address] | [address] | | + + + + + documented in this encounter Visit Diagnoses + + | Diagnosis | + + | Other specified pre-operative examination | + + | Hemorrhagic disorder due to intrinsic circulating anticoagulants | + + documented in this encounter
--- OUTSIDE RECORDS SUMMARY | ~2019-10-17 | XMS | Encounter Summary ---
[...] Providers + +------+ + | Care Communications Engineering Technician Name | Role | Phone [...] | Osteopenia | MD Beto | Density [facility] | | | | | Procedures | [address] | [address] | | | | | CONSULT TO | Ave | Naeem Mcrae | | | | | BONE | [place], [place] | Rd Mailcode: | | | | | DENSITOMETRY | [address] | [address] | | | | | | Phone: | Naeem [place] | | | | | | [phone] | [place], [place] | | | | | | Fax: | [address] | | | | | | [phone] | Phone: | | | | | | | [phone] | | | | | | | Fax: | | | | | | | [phone] | +--------+--------+ + + + + Reason [...] | | | [facility] | [facility] [place] | | | | | Pavilion [address] | [address] | | | | | [address] | [phone] | | | | | [facility] | | | | | | Physician's | | | | | | Pavilion [place], | | | | | | [place] [address] | | | | | | [phone] | | | +--------+ + + + [...]
--- OUTSIDE RECORDS SUMMARY | ~2019-10-17 | XMS | Encounter Summary ---
Demographics + + + | Address | [address] | | | [place] [address] | + + + | Home Phone [...] | | | | [place], | [address] | | | | | | [place] | Phone: | | | | | | [address] | [phone] | | | | | | Phone: | Fax: | | | | | | [phone] | [phone] | | | | | | Fax: | | | | | | | [phone] | | +--------+ + + + + + Reason for Visit +--------+ + | Reason | Comments | +--------+ + | Other | bladder/ bowel issues | +--------+ + Encounter Details +--------+---------+ + + + | Date | Type | Department | Care Team | Description | +--------+---------+ + + + | 10/15/ | Office | [facility] | Alanis, | Mixed stress and | | 2017 | Visit | MEDICINE [address] [place] [address] | MD Petrona | urge urinary | | | | [facility] | [address] [place] [address] | incontinence | | | | [place] [address] | [place] [address] | (Primary Dx); OLIVER | | | | [phone] | [phone] | (obstructive sleep | | | | [...] Patient presents with Other bladder/ bowel issues [facility] Belinda Meehan is a 57 [...] 1,000 mcg 1,000 mcg Intramuscular Q30 Days [facility] Maddie Thapa MD 1,000 mcg at 10/15/17 1149 ALLERGIES Allergies Allergen Reactions Codeine Sulfate Nausea Only Levofloxacin Hives, Itching and Rash Amitriptyline Hcl Other (See Comments) Confused and questionable for seizures Syzsuravod-Eemd-Lfpywkfq Cephalexin Hives Duloxetine Migraines and nausea Ketorolac Hives Morphine Swelling Ropinirole Hcl Hives Tramadol Hcl Nausea Only Sylbcrwtqt-Auiu-Hvmnthrm Hives and Rash Ciprofloxacin Hives and Rash [...] warrant a GI consult. - * [facility] Gastroenterology - AMB Referral; Future 5. S/P gastric bypass - * [facility]; Future 6. Nausea - ondansetron (ZOFRAN ODT) 4 mg disintegrating tablet; Take 1 tablet by mouth every 6 hours . Dispense: 120 tablet; Refill: 3 FOLLOW-UP Return in about 3 months (around 01/15/2018). Note: Parts of this documentwere created using whoplusyou speech recognition software. As a r esult, [...] | | | | | [place] [address] | | | | | | [phone] | | | | | | | | +--------+---------+ + + + | 12/20/ | Office | Audiology | Elisabet Munson MS | | | 2019 | Visit | | [facility] [address] | | | | | | [address] [place] | | | | | | [place] [address] | | | | | | [phone] | | | | | | | | +--------+---------+ + + + | 12/20/ | Office | Otolaryngology | Ulysses Genao MD | | | 2019 | Visit | | [address] | | | | | | [address] [place], | | | | | | [place] [address] | | | | | | [phone] | | | | | | | [...]
--- OUTSIDE RECORDS SUMMARY | ~2019-10-17 | XMS | Encounter Summary ---
Demographics + + + | Address | [address] | | | [place] [address] | + + + | Home Phone [...] Providers + +------+ + | Care Clinical Psychologist Private Practice Name | Role | Phone | [...] | Transcriptions | + + | Interface, Automobile Seat Cover Installer In - 06/05/2005 5:20 AM PST | | [id number] | | [id number] [facility] Barnes | | | | Date: 12/06/2004 | | | | Attending Surgeon: Chris Padgett M.D. | | | | Reroller Hand(s): | | | | Preoperative Diagnosis(es): | [...] | | BW / HS | | [id number] / [id number] / [id number] / | | | | | | | | | | | | Electronically signed by Chris Padgett 12-31-2004 03:02:45 PM | + + documented in this encounter Visit Diagnoses Not on filedocumented in this encounter"
--- OUTSIDE RECORDS SUMMARY | ~2019-10-17 | XMS | Encounter Summary ---
Demographics + + + | Address | [address] | | | [place] [address] | + + + | Home Phone [...] Providers + +------+ + | Care Sole Blacker Name | Role | Phone | + [...] of this encounter Progress Notes Interface, Diesel Technician Mechanic In - 01/12/2005 6:32 AM PDTClinic Date: [...] improves, and the leg discomfort is actually loan representative of restless legs. I have given [...] 4 months. Caitlin Rivera M.S., F.N.P. / [id number] / [id number] / [id number] / [id number] cc: Pedrito Gutierrez M.D. [address] [place], [place] [id number] signed by Interface, Diesel Technician Mechanic In at 01/12/2005 6:3 2 AM PDTdocumented in this encounter Plan of Treatment Not on filedocumented as of this encounter Visit Diagnoses Not on filedocumented in this encounter"
--- OUTSIDE RECORDS SUMMARY | ~2019-10-17 | XMS | Encounter Summary ---
Demographics + + + | Address | [address] | | | [place] [address] | + + + | Home Phone [...] | | | [facility] | [place], [place] | | | | | [address] | [address] | | | | | [address] | [phone] | | | | | Physician's | | | | | | Pavilion, 1st floor | | | | | | [place], [place] | | | | | | [address] | | | | | | [phone] | | | +--------+--------+ + + + [...]
--- OUTSIDE RECORDS SUMMARY | ~2019-10-17 | XMS | Encounter Summary ---
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 Diagnosis: Laurier I: 1. (296.32) Major depressive disorder, recurrent, moderate. 2. (309.24) Adjustment disorder with anxiety. 3. 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 Laurier II: Deferred Laurier III: abdominal pain, migraine headache, low back pain. Laurier IV: low finances Laurier V: GAF 50 Plan: Return in 2 weeks. Check preparation for niece's visit, [employer] gym, pacing, relaxation, ac tivity, distraction. Check managing Pain... book. Continue cognitive/behavioral therapy. Total time spent with patient was approximately 45 minutes. LUKASZ CHARLES PHD [facility] [address] [facility] [address] [place] [address] documented in this encount er Plan of [...]
--- OUTSIDE RECORDS SUMMARY | ~2019-10-17 | XMS | Encounter Summary ---
Demographics + + + | Address | [address] | | | [place] [address] | + + + | Home Phone [...] Providers + +------+ + | Care Material Manager Name | Role | Phone | [...] + | 08/31/ | Refill | [facility] | Alanis, | Medication Refill | | 2017 | | MEDICINE [address] [place] [address] | MD Petrona | | | | | [facility] | [address] [place] [address] | | | | | [place] [address] | [place] [address] | | | | | [phone] | [phone] | | | | | | | [...] | | | | | [place] [address] | | | | | | [phone] | | | | | | | | +--------+---------+ + + + | 12/20/ | Office | Audiology | Elisabet Munson MS | | | 2019 | Visit | | [facility] [address] | | | | | | [place] [address] [place] | | | | | | [place] [address] | | | | | | [phone] | | | | | | | | +--------+---------+ + + + | 12/20/ | Office | Otolaryngology | Ulysses Genao MD | | | 2019 | Visit | | [address] | | | | | | [address] [place], | | | | | | [place] [address] | | | | | | [phone] | | | | | | | | +--------+---------+ + + + documented as of this encounter Visit Diagnoses + + | Diagnosis | + + | Chronic bilateral low back pain without sciatica | + + documented in this encounter"
--- OUTSIDE RECORDS SUMMARY | ~2019-10-17 | XMS | Encounter Summary ---
Demographics + + + | Address | [address] | | | [place] [address] | + + + | Home Phone [...] Providers + +------+ + | Care Piping Designer Name | Role | Phone [...]
--- OUTSIDE RECORDS SUMMARY | ~2019-10-17 | XMS | Encounter Summary ---
Demographics + + + | Address | [address] | | | [place] [address] | + + + | Home Phone [...] Providers + +------+ + | Care Electric Locomotive Firer/Fireman Name | Role | Phone | + [...] | | | | [place], | [address] | | | | | | [place] | Phone: | | | | | | [address] | [phone] | | | | | | Phone: | Fax: | | | | | | [phone] | [phone] | | | | | | Fax: | | | | | | | [phone] | | +--------+ + + + + [...] + + | 04/18/ | Office | [facility] | Alanis, | Poor memory (Primary | | 2019 | Visit | MEDICINE [address] [place] [address] | MD Petrona | Dx); [address] | | | | [address] [place] | [address] [facility] | deficiency; Fatty | | | | [place] [address] | [place] [address] | liver | | | | [phone] | [phone] | | | | | | | [...] nl. No depression or suicidal thinki ng. [place] Cognitive Assessment (MoCA) Office Visit from 04/18/2019 in [facility] MEDICINE Visuospatial / Executive [...] COLONOSCOPY; Surgeon: Luther Brito MD; Location: [facility] MEDICAL PROCEDURE UNIT DILATION AND CURETTAGE OF UTERUS ELBOW SURGERY FINGER TRIGGER RELEASE 2002 FINGER TRIGGER RELEASE 2009 GASTRIC BYPASS SURGERY 2004 HYSTERECTOMY 05/14/1980 JOINT REPLACEMENT Bilateral 2007 2008 KNEE ARTHROSCOPY 2005 LAPAROSCOPY 01/27/2015 LAPAROTOMY 2008 ROTATOR CUFF REPAIR 2005 SPINE SURGERY TONSILLECTOMY 1964 UPPER GASTROINTESTINAL ENDOSCOPY N/A 12/18/2017 Procedure: EGD; Surgeon: Luther Brito MD; Location: [facility] MEDICAL PROCEDURE UNIT CURRENT MEDICATIONS [...] Allergen Reactions Ensure Diarrhea Food Diarrhea Lactose Mrpfqvmpwc-Gzc-Cukw-Codeine Other (See Comments) Balance problems Codeine Sulfate Nausea Only Food Allergy Formula Diarrhea Ensure Levofloxacin Hives, Itching and Rash Butalbital Ropinirole Amitriptyline Hcl Other (See Comments) Confused and questionable for seizures Lisdpqphqy-Mfch-Rmaabukt Rash duplicate Kaanfpwrex-Wqhd-Tvdyokom Hives and Rash Cephalexin Hives Ciprofloxacin Hives [...] 1. Parts of this documentwere created using Dexterra speech recognition software. As a resu lt, [...] | [facility] [address] [facility] | | | | | | [place] [address] | | | | | | [phone] | | | | | | | | +--------+---------+ + + + | 12/20/ | Office | Audiology | Elisabet Munson MS | | | 2019 | Visit | | [facility] [address] | | | | [address] [place] | | | | | | [place] [address] | | | | | | [phone] | | | | | | | | +--------+---------+ + + + | 12/20/ | Office | Otolaryngology | Ulysses Genao MD | | | 2019 | Visit | | [address] | | | | | | [address] [place], | | | | | | [place] [address] | | | | | | [phone] | | | | | | | [...] mL/min/1.73m2 | Yudy NATHAN | | | MARTINIQUAIS | RATE,ESTIMATED | | MEDICAL | | | | mL/min/1.00y6Yjsj than | | CENTER - | | [...] [address] | [place] | [phone] | | [facility] | | [address] | | | - LABORATORY | | [...] [address] | [place] | [phone] | | [facility] | | [address] | | | - LABORATORY | | | | + + + + + Vitamin B-12 (04/18/2019 11:29 AM PST) + + + + + + | Component | Value | Ref Range | Performed | Pathologist | | | | | At | Signature | + + + + + + | VITAMIN | >15616 (H)Comment: | 156 - 672 pg/mL | [...] [address] | [place] | [phone] | | [facility] | | [address] | | | - LABORATORY | | [...] | | | | First dose on [facility] 10/15/17 at 1215 | | | [...]
--- OUTSIDE RECORDS SUMMARY | ~2019-10-17 | XMS | Encounter Summary ---
Demographics + + + | Address | [address] | | | [place] [address] | + + + | Home Phone [...] Team Providers + +------+ + | Care Stem Maker Name | Role | Phone | [...] + + | 09/25/ | Telephone | [facility] | Alanis, | Other | | 2018 | | MEDICINE [address] [place] [address] | MD Petrona | | | | | [facility] | [address] [place] [address] | | | | | [place] [address] | [place] [address] | | | | | [phone] | [phone] | | | | | | | [...] | [facility] [address] [place] | | | | | | [place] [address] | | | | | | [phone] | | | | | | | | +--------+---------+ + + + | 12/20/ | Office | Audiology | Elisabet Munson MS | | | 2019 | Visit | | [facility] [address] | | | | | | [place] [address] [address] | | | | | | [place] [address] | | | | | | [phone] | | | | | | | | +--------+---------+ + + + | 12/20/ | Office | Otolaryngology | Ulysses Genao MD | | | 2020 | Visit | | [address] [facility] | | | | | | [address] [place], | | | | | | [place] [address] | | | | | | [phone] | | | | | | | | +--------+---------+ + + + documented as of this encounter Visit Diagnoses + + | Diagnosis | + + | OLIVER (obstructive sleep apnea) - Primary Obstructive sleep apnea (adult) (pediatric) | + + documented in this encounter"
--- OUTSIDE RECORDS SUMMARY | ~2019-10-17 | XMS | Encounter Summary ---
Demographics + + + | Address | [address] | | | [place] [address] | + + + | Home Phone [...] Providers + +------+ + | Care Scale And Skip Car Operator Name | Role | Phone [...] of this encounter Progress Notes Interface, Rn Clinical Review In - 07/09/2005 2:07 AM PST [id number] GEOVANNI [place] Clinic Date: 07/03/2005 Clinic: Ms. [...] this operation. Chris Padgett M.D. ROSA / [id number] / [id number] / [id number] / [id number] Electronically signed by Chris Padgett 07-08-2005 01:45:20 PM documented i n this encounter Plan of Treatment Not on filedocumented as of this encounter Visit Diagnoses Not on filedocumented in this encounter"
--- OUTSIDE RECORDS SUMMARY | ~2019-10-17 | XMS | Encounter Summary ---
Demographics + + + | Address | [address] | | | [place] [address] | + + + | Home Phone [...] Providers + +------+ + | Care Sports Journalist Name | Role | Phone | [...] | at [place] | [facility] | | | | | [address] | [place] [address] | | | | | [address] [place] [address] | | | | | | [place], 2nd floor | | | | | | [place], [place] | | | | | | [address] | | | | | | [phone] | | | +--------+ + + + [...]
--- OUTSIDE RECORDS SUMMARY | ~2019-10-17 | XMS | Encounter Summary ---
Demographics + + + | Address | [address] | | | [place] [address] | + + + | Home Phone [...] Providers + +------+ + | Care Medical Transcription Radiology Name | Role | Phone | [...] | | | | | Clementina [place], | | | | | | [place] [address] | | | | | | [phone] | | +--------+ + + + + [...] + +---------+ + + | [facility] DEPARTMENT OF | | | | [...] + +---------+ + + | [facility] DEPARTMENT OF | | | | [...] + +---------+ + + | [facility] DEPARTMENT OF | | | | | RADIOLOGY | | | | + +---------+ + + documented in this encounter Visit Diagnoses Not on filedocumented in this encounter"
--- OUTSIDE RECORDS SUMMARY | ~2019-10-17 | XMS | Encounter Summary ---
Demographics + + + | Address | [address] | | | [place] [address] | + + + | Home Phone [...] Providers + +------+ + | Care Marketing Operations Specialist Name | Role | Phone [...] | | | | Mailcode: L223A | [place], [place] | | | | | Phys[facility] Pavilion | [address] | | | | | [address] [place], [place] | [phone] | | | | | [address] | | | | | | [phone] | | | +--------+ + + + [...]
--- OUTSIDE RECORDS SUMMARY | ~2019-10-17 | XMS | Encounter Summary ---
Demographics + + + | Address | [address] | | | [place] [address] [...] Providers + +------+ + | Care Tomato Paste Maker Name | Role | Phone | [...] + | 02/10/ | Refill | [facility] | Alanis, | Medication Refill | | 2018 | | MEDICINE [address] [place] [address] | MD Petrona | | | | | [facility] | [address] [place] [address] | | | | | [place] [address] | [place] [address] | | | | | [phone] | [phone] | | | | | | | [...] | | | | | [place] [address] | | | | | | [phone] | | | | | | | | +--------+---------+ + + + | 12/20/ | Office | Audiology | Elisabet Munson MS | | | 2019 | Visit | | [facility] [address] | | | | | | [place] [address] [place] | | | | | | [place] [address] | | | | | | [phone] | | | | | | | | +--------+---------+ + + + | 12/20/ | Office | Otolaryngology | Ulysses Genao MD | | | 2019 | Visit | | [address] [facility] | | | | | | [address] [place], | | | | | | [place] [address] | | | | | | [phone] | | | | | | | | +--------+---------+ + + + documented as of this encounter Visit Diagnoses + + | Diagnosis | + + | Nausea Nausea alone | + + documented in this encounter"
--- OUTSIDE RECORDS SUMMARY | ~2019-10-17 | XMS | Encounter Summary ---
Demographics + + + | Address | [address] | | | [place] [address] | + + + | Home Phone [...] Providers + +------+ + | Care Nursing Staffing Coordinator Name | Role | Phone | [...] + + | 08/14/ | Telephone | [facility] | Alanis, | Lab Order | | 2017 | | MEDICINE [address] [place] [address] | MD Petrona | | | | | [facility] | [address] [place] [address] | | | | | [place] [address] | [place] [address] | | | | | [phone] | [phone] | | | | | | | [...] | | | | | [place] [address] | | | | | | [phone] | | | | | | | | +--------+---------+ + + + | 12/20/ | Office | Audiology | Elisbaet Munson MS | | | 2019 | Visit | | [facility] [address] | | | | | | [place] [address] [place] | | | | | | [place] [address] | | | | | | [phone] | | | | | | | | +--------+---------+ + + + | 12/20/ | Office | Otolaryngology | Ulysses Genao MD | | | 2019 | Visit | | [address] [facility] | | | | | | [address] [place], | | | | | | [place] [address] | | | | | | [phone] | | | | | | | | +--------+---------+ + + + documented as of this encounter Visit Diagnoses + + | Diagnosis | + + | Preop examination - Primary Preoperative examination, unspecified | + + documented in this encounter"
--- OUTSIDE RECORDS SUMMARY | ~2019-10-17 | XMS | Encounter Summary ---
Demographics + + + | Address | [address] | | | [place] [address] | + + + | Home Phone [...] Providers + +------+ + | Care Special Forces Engineer Sergeant Name | Role | Phone [...] of this encounter Progress Notes Interface, Senior Payroll Administrator In - 11/05/2005 2:06 AM PDT [id number] GEOVANNI Barnes [id number] Clinic Date: 10/20/2005 Clinic: Bariatric Surgery Clinic Subjective: Ms. Meehan returns today for continued evaluation of her abdominal pain. She has had a gastric bypass followed by a panniculectomy approximately 1 year ago. She has had diffuse sharp and crampy abdominal pain which lasts up to 45 minutes. She says "it takes her breath away." She went to the emergency room at [place] last night and got some IV pain [...] . Wali Valentine M.D. CONNOR / SHARIF [id number] / [id number] / [id number] / [id number] Electronically signed by Luther Valentine 11-04-2005 11:36:40 AM documented i n this encounter Plan of Treatment Not on filedocumented as of this encounter Visit Diagnoses Not on filedocumented in this encounter
--- OUTSIDE RECORDS SUMMARY | ~2019-10-17 | XMS | Encounter Summary ---
Demographics + + + | Address | [address] | | | [place] [address] | + + + | Home Phone [...] Providers + +------+ + | Care Gas Turbine Powerplant Mechanic Helper Name | Role | Phone [...] + | 07/06/ | Telephone | [facility] | Alanis, | Transfer Orders | | 2018 | | [address] | MD Petrona | | | | | [facility] | [address] [place] [address] | | | | | [place] [address] | [place] [address] | | | | | [phone] | [phone] | | | | | | | [...] | | | | | [place] [address] | | | | | | [phone] | | | | | | | | +--------+---------+ + + + | 12/20/ | Office | Audiology | Elisabet Munson MS | | | 2019 | Visit | | [facility] [address] | | | | | | [address] [place] [address] [place] | | | | | | [place] [address] | | | | | | [phone] | | | | | | | | +--------+---------+ + + + | 12/20/ | Office | Otolaryngology | Uylsses Genao MD | | | 2020 | Visit | | [address] | | | | | | [address] [place], | | | | | | [place] [address] | | | | | | [phone] | | | | | | | | +--------+---------+ + + + documented as of this encounter Visit Diagnoses Not on filedocumented in this encounter"
--- OUTSIDE RECORDS SUMMARY | ~2019-10-17 | XMS | Encounter Summary ---
Demographics + + + | Address | [address] | | | [place] [address] | + + + | Home Phone [...] Team Providers + +------+ + | Care Pick Pack Worker Name | Role | Phone | [...] [address] | | | | | [place], [place] | [place], [place] | | | | | [address] | [address] | | | | | [phone] | [phone] | | | | | | | [...] [facility] | [address] | [place] [address] | | | PATHOLOGY | [address] | | | + + + + + | [facility] | [address] | [place] [address] | | | PATHOLOGY | [address] [...] | + + + + + | [facility] DEPARTMENT OF | [address] | [place] [address] | | | PATHOLOGY | [address] | | | + + + + + | [place] DEPARTMENT OF | [address] | [place] [address] | | | PATHOLOGY | [address] [...] | + + + + + | [facility] DEPARTMENT OF | [address] [facility] | [place] [address] | | | PATHOLOGY | [address] | | | + + + + + | [facility] DEPARTMENT OF | [address] | [place] [address] | | | PATHOLOGY | [address] [...] + + + | [facility] | [address] [place] [address] | [place] [address] | | | PATHOLOGY | [address] | | | + + + + + | [facility] DEPARTMENT OF | [facility] | [place] [address] | | | PATHOLOGY | [address] | | | + + + + + documented in this encounter Visit Diagnoses Not on filedocumented in this encounter"
--- OUTSIDE RECORDS SUMMARY | ~2019-10-17 | XMS | Encounter Summary ---
Demographics + + + | Address | [address] | | | [place] [address] | + + + | Home Phone [...] Team Providers + +------+ + | Care Jacquard Loom Fixer Name | Role | Phone [...] [facility] | | | | | [facility] | [place], [place] | | | | | and Healing, | [address] | | | | | [facility] | [phone] | | | | | Floor [place], [place] | | | | | | [address] | | | | | | [phone] | | | +--------+ + + + [...]
--- OUTSIDE RECORDS SUMMARY | ~2019-10-17 | XMS | Encounter Summary ---
Demographics + + + | Address | [address] | | | [place] [address] | + + + | Home Phone [...] Team Providers + +------+ + | Care Rib Bender Name | Role | Phone | [...] | | | | [place], | [address] | | | | | | [place] | Phone: | | | | | | [address] | [phone] | | | | | | Phone: | Fax: | | | | | | [phone] | [phone] | | | | | | Fax: | | | | | | | [phone] | | +--------+ + + + + + Encounter Details +--------+---------+ + + + | Date | Type | Department | Care Team | Description | +--------+---------+ + + + | 11/16/ | Office | [facility] | Alanis, | Diarrhea, | | 2017 | Visit | GASTROENTEROLOGY | MD Petrona | unspecified type | | | | [address] | [address] [facility] | (Primary Dx); | | | | [address] [place], [place] | [place] [address] | Chronic diarrhea; | | | | [address] | [phone] | S/P gastric bypass; | | | | [phone] | | Gastroesophageal | | | | | Luther Brito MD | reflux disease, | | | | | [address] | esophagitis presence | | | | | [place], [place] | not specified; | | | | | [address] | History of gastric | | | | | [phone] | ulcer; Abdominal | | | | | | pain, unspecified | | | | | | abdominal location; | | | | | | Narcotic dependence | | | | | | ([facility]); Obesity (BMI | | | [...] ordered and patient will complet e at [facility] in [place], orders were faxed; scheduled for egd/colon prop on 12/[address] Brito; advised to hold PPI day of procedure, she agreed. 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 documented in this encounter Plan of Treatment [...] | | | | | [place] [address] | | | | | | [phone] | | | | | | | | +--------+---------+ + + + | 12/20/ | Office | Audiology | Elisabet Munson MS | | | 2019 | Visit | | [facility] [address] | | | | | [address] [place] | | | | | | [place] [address] | | | | | | [phone] | | | | | | | | +--------+---------+ + + + | 12/20/ | Office | Otolaryngology | Ulysses Genao MD | | | 2019 | Visit | | [address] | | | | | | [address] [place], | | | | | | [place] [address] | | | | | | [phone] | | | | | | | [...]
--- OUTSIDE RECORDS SUMMARY | ~2019-10-17 | XMS | Encounter Summary ---
Demographics + + + | Address | [address] | | | [place] [address] | + + + | Home Phone [...] Providers + +------+ + | Care Asbestos Shingle Roofer Name | Role | Phone | [...] | Osteopenia | MD Beto | Density [facility] | | | | | Procedures | [address] | [address] | | | | | CONSULT TO | Ave | [address] | | | | | BONE | [place], [place] | Rd Mailcode: | | | | | DENSITOMETRY | [address] | [address] | | | | | | Phone: | [address] | | | | | | [phone] | [place], [place] | | | | | | Fax: | [address] | | | | | | [phone] | Phone: | | | | | | | [phone] | | | | | | | Fax: | | | | | | | [phone] | +--------+--------+ + + + + Reason [...] | | [facility] | [facility] [place] | | | | | [address] | [address] | | | | | [address] | [phone] | | | | | Physician's Pavilion | | | | | | Physician's | | | | | | Pavilion [place], | | | | | | [place] [address] | | | | | | [phone] | | | +--------+ + + + [...]
--- OUTSIDE RECORDS SUMMARY | ~2019-10-17 | XMS | Encounter Summary ---
Demographics + + + | Address | [address] | | | [place] [address] | + + + | Home Phone [...] Providers + +------+ + | Care Rn Assessment Name | Role | Phone | + +------+ + | Maria Esther Cintron MD | PCP | | + +------+ + Encounter Details +--------+ + + + + | Date | Type | Department | Care Team | Description | +--------+ + + + + | 08/26/ | Telephone | Digestive Health | Chris Padgett, | | | 2010 | | [place] [address] | [address] [facility] | | | | | [place] Mailcode: CH4S | [address] | | | | | Center for Health | [place], [place] | | | | | and Healing, | [address] | | | | | Building , 6th | [phone] | | | | | Floor [place], [place] | | | | | | [address] | | | | | | [phone] | | | +--------+ + + + [...]
--- OUTSIDE RECORDS SUMMARY | ~2019-10-17 | XMS | Encounter Summary ---
Demographics + + + | Address | [address] | | | [place] [address] | + + + | Home Phone [...] Providers + +------+ + | Care Ceo & Board Director Name | Role | Phone | [...] of this encounter Progress Notes Interface, Bioinformatics Support Specialist In - 01/11/2005 7:39 PM PDT Referred [...] 3-6 months time. She is coming from [place] so this can be scheduled on the same day of her physician visit. General surgery can schedule this. 5. Indra's business card with contact information for questions. Svetlana Maki R.D., LKyrie. SR/y39 P [phone] cc: documente d in this encounter Plan of Treatment Not on filedocumented as of this encounter Visit Diagnoses Not on filedocumented in this encounter"
--- OUTSIDE RECORDS SUMMARY | ~2019-10-17 | XMS | Encounter Summary ---
Demographics + + + | Address | [address] | | | [place] [address] [...] Providers + +------+ + | Care Senior Adults Director Name | Role | Phone | [...] + + | 09/01/ | Telephone | [facility] | Alanis, | Sinus Pain | | 2019 | | MEDICINE [address] [place] [address] | MD Petrona | | | | | [facility] | [address] [place] [address] | | | | | [place] [address] | [place] [address] | | | | | [phone] | [phone] | | | | | | | [...] | | | | | [place] [address] | | | | | | [phone] | | | | | | | | +--------+---------+ + + + | 12/20/ | Office | Audiology | Elisabet Munson MS | | | 2020 | Visit | | [facility] [address] | | | | | | [address] [place] [address] [place] | | | | | | [place] [address] | | | | | | [phone] | | | | | | | | +--------+---------+ + + + | 12/20/ | Office | Otolaryngology | Ulysses Genao MD | | | 2020 | Visit | | [address] [place] | | | | | | [address] [place], | | | | | | [place] [address] | | | | | | [phone] | | | | | | | | +--------+---------+ + + + documented as of this encounter Visit Diagnoses Not on filedocumented in this encounter"
--- OUTSIDE RECORDS SUMMARY | ~2019-10-17 | XMS | Encounter Summary ---
Demographics + + + | Address | [address] | | | [place] [address] | + + + | Home Phone [...] Providers + +------+ + | Care Die Lay Out Worker Name | Role | [...] as of this encounter Progress Notes Interface, Copying Machine Mechanic In - 01/12/2005 10:09 AM PDT [id number] GEOVANNI Barnes Clinic Date: 12/19/2004 Clinic: General [...] as vitamin B12. Melisa Thorne / SHARIF [id number] / [id number] / [id number] / [id number] cc: Pedrito Gutierrez M.D. [address] [address] FAX: [phone] Chris Padgett M.D. General Surgery, [facility] Electronically signed by Kenisha Melton 12-25-2004 04:28:39 PM documented i n this encounter Plan of Treatment Not on filedocumented as of this encounter Visit Diagnoses Not on filedocumented in this encounter"
--- OUTSIDE RECORDS SUMMARY | ~2019-10-17 | XMS | Encounter Summary ---
[...] Providers + +------+ + | Care Intermediate Teacher Name | Role | Phone | + +------+ + PCP | Unavailable | + +------+ + Encounter Details +--------+ + + + + | Date | Type | Department | Care Team | Description | +--------+ + + + + | 07/04/ | Office | Endocrinology, | Beto Meeks MD | | | 2005 | Visit-ECX | Diabetes and | [address] | | | | | Clinical Nutrition | [place], [place] | | | | | [address] | [address] | | | | | Loop Mailcode: OPC5 | [phone] | | | | | Outpatient Clinic | | | | | | [facility] | | | | | | [place] [address] | | | | | | [phone] | | | +--------+ + + + [...]
--- OUTSIDE RECORDS SUMMARY | ~2019-10-17 | XMS | Encounter Summary ---
Demographics + + + | Address | [address] | | | [place] [address] | + + + | Home Phone [...] Providers + +------+ + | Care Produce Department Manager Name | Role | Phone [...] + + | 03/02/ | Telephone | [facility] | Alanis, | Lab Results | | 2017 | | MEDICINE [address] [place] [address] | MD Petrona | | | | | [facility] | [address] [place] [address] | | | | | [place] [address] | [place] [address] | | | | | [phone] | [phone] | | | | | | | [...] | | | | | [place] [address] | | | | | | [phone] | | | | | | | | +--------+---------+ + + + | 12/20/ | Office | Audiology | Elisabet Munson MS | | | 2020 | Visit | | [facility] [address] | | | | | | [address] [place] [address] [place] | | | | | | [place] [address] | | | | | | [phone] | | | | | | | | +--------+---------+ + + + | 12/20/ | Office | Otolaryngology | Ulysses Genao MD | | | 2020 | Visit | | [address] | | | | | | [address] [place], | | | | | | [place] [address] | | | | | | [phone] | | | | | | | | +--------+---------+ + + + documented as of this encounter Visit Diagnoses Not on filedocumented in this encounter"
--- OUTSIDE RECORDS SUMMARY | ~2019-10-17 | XMS | Encounter Summary ---
Demographics + + + | Address | [address] | | | [place] [address] | + + + | Home Phone [...] Providers + +------+ + | Care Supervisor Roving Department Name | Role | Phone | + +------+ + | Maria Esther Cintron MD | PCP | | + +------+ + Encounter Details +--------+ + + + + | Date | Type | Department | Care Team | Description | +--------+ + + + + | 09/21/ | Telephone | Digestive Health | Chris Padgett, | | | 2008 | | [place] [address] | [address] [facility] | | | | | [place] Mailcode: CH4S | [address] | | | | | Center for Health | [place], [place] | | | | | and Healing, | [address] | | | | | Building , 6th | [phone] | | | | | Floor [place], [place] | | | | | | [address] | | | | | | [phone] | | | +--------+ + + + [...]
--- OUTSIDE RECORDS SUMMARY | ~2019-10-17 | XMS | Encounter Summary ---
[...] Providers + +------+ + | Care Economic Development Coordinator Name | Role | Phone | [...] | | 2018 | | MEDICINE [address] [place] [address] | MD Petrona | | | | | [facility] | [address] [place] [address] | | | | | [place] [address] | [place] [address] | | | | | [phone] | [phone] | | | | | | | [...] | | | | | [place] [address] | | | | | | [phone] | | | | | | | | +--------+---------+ + + + | 12/20/ | Office | Audiology | Elisabet Munson MS | | | 2019 | Visit | | [facility] [address] | | | | | | [place] [address] [place] | | | | | | [place] [address] | | | | | | [phone] | | | | | | | | +--------+---------+ + + + | 12/20/ | Office | Otolaryngology | Ulysses Genao MD | | | 2019 | Visit | | [address] | | | | | | [address] [place], | | | | | | [place] [address] | | | | | | [phone] | | | | | | | | +--------+---------+ + + + documented as of this encounter Visit Diagnoses + + | Diagnosis | + + | Chronic bilateral low back pain without sciatica | + + documented in this encounter"
--- OUTSIDE RECORDS SUMMARY | ~2019-10-17 | XMS | Encounter Summary ---
Demographics + + + | Address | [address] | | | [place] [address] | + + + | Home Phone [...] Providers + +------+ + | Care Automobile Mechanic Radiator Name | Role | Phone | + [...] [address] | | | | | [place], [place] | [place], [place] | | | | | [address] | [address] | | | | | [phone] | [phone] | | | | | | | [...]
--- OUTSIDE RECORDS SUMMARY | ~2019-10-17 | XMS | Encounter Summary ---
Demographics + + + | Address | [address] | | | [place] [address] | + + + | Home Phone [...] Team Providers + +------+ + | Care Checking Clerk Name | Role | Phone | + +------+ + PCP | Unavailable | + +------+ + Encounter Details +--------+ + + + + | Date | Type | Department | Care Team | Description | +--------+ + + + + | 11/22/ | Results | | Other, Faculty | | | 2004 | Only | | [phone] | | +--------+ + + + + [...] + | Ordered by SYEDA MCKENZIE | [facility] | | | DEPARTMENT OF | | | PATHOLOGY | + + + + + + + + | Performing | Address | City/State/Zipcode | Phone Number | | Organization | | | | + + + + + | [facility] DEPARTMENT OF | [address] | [place] [address] | | | PATHOLOGY | [address] | | | + + + + + | [place] DEPARTMENT OF | [address] | [place] [address] | | | PATHOLOGY | [address] [...] | [facility] DEPARTMENT | [address] | [place] [address] | | | PATHOLOGY | [address] | | | + + + + + | [facility] | [address] | [place] [address] | | | PATHOLOGY | [address] [...] [facility] | [address] | [place] [address] | | | PATHOLOGY | [address] | | | + + + + + | [facility] | [address] | [place] [address] | | | PATHOLOGY | [address] [...] DEPARTMENT OF | [address] | [place] [address] | | | PATHOLOGY | [address] | | | + + + + + | [facility] DEPARTMENT OF | [address] | [place] [address] | | | PATHOLOGY | [address] [...] DEPARTMENT OF | [address] | [place] [address] | | | PATHOLOGY | [address] | | | + + + + + | [facility] DEPARTMENT OF | [address] | [place] [address] | | | PATHOLOGY | [address] [...] | [facility] DEPARTMENT | [address] | [place] [address] | | | PATHOLOGY | [address] | | | + + + + + | [facility] DEPARTMENT OF | [address] | [place] [address] | | | PATHOLOGY | [address] | | | + + + + + documented in this encounter Visit Diagnoses Not on filedocumented in this encounter"
--- OUTSIDE RECORDS SUMMARY | ~2019-10-17 | XMS | Encounter Summary ---
[...] Providers + +------+ + | Care Plant Operations Manager Name | Role | Phone [...] [address] | | | | | [facility] | [place], [place] | | | | | [address] | [address] | | | | | [address] | [phone] | | | | | Physician's Pavilion | | | | | | Physician's | | | | | | Pavilion [place], | | | | | | [place] [address] | | | | | | [phone] | | | +--------+--------+ + + + [...]
--- OUTSIDE RECORDS SUMMARY | ~2019-10-17 | XMS | Encounter Summary ---
Demographics + + + | Address | [address] | | | [place] [address] | + + + | Home Phone [...] Providers + +------+ + | Care Train Inspector Name | Role | Phone | [...] as of this encounter Progress Notes Interface, Resolution Agent In - 11/05/2005 2:06 AM PDT [id number] GEOVANNI [place] [id number] Clinic Date: 10/20/2005 Clinic: Bariatric Surgery Clinic Subjective: Ms. Meehan returns today for continued evaluation of her abdominal pain. She has had a gastric bypass followed by a panniculectomy approximately 1 year ago. She has had diffuse sharp and crampy abdominal pain which lasts up to 45 minutes. She says "it takes her breath away." She went to the emergency room at [place] last night and got some IV pain [...] . Wali Valentine M.D. CONNOR / SHARIF [id number] / [id number] / [id number] / [id number] Electronically signed by Luther Valentine 11-04-2005 11:36:40 AM documented i n this encounter Plan of Treatment Not on filedocumented as of this encounter Visit Diagnoses Not on filedocumented in this encounter
--- OUTSIDE RECORDS SUMMARY | ~2019-10-17 | XMS | Encounter Summary ---
Demographics + + + | Address | [address] | | | [place] [address] | + + + | Home Phone [...] Providers + +------+ + | Care Plug Making Operator Name | Role | Phone | [...] | [facility] | [address] [facility] | | | | | [facility] | [address] [place], | | | | | [address] | [place] [address] | | | | | [address] | [phone] | | | | | Physician's | | | | | | Pavilion, 1st floor | | | | | | [place], [place] | | | | | | [address] | | | | | | [phone] | | | +--------+ + + + [...] | | + +---------+--------+ + + | [place] DXA BONE | Imaging | Routin | [...]
--- OUTSIDE RECORDS SUMMARY | ~2019-10-17 | XMS | Encounter Summary ---
Demographics + + + | Address | [address] | | | [place] [address] | + + + | Home Phone [...] Providers + +------+ + | Care Lead Quality Technician Name | Role | Phone [...] | | | Clinical Nutrition | [place], [place] | | | | | [address] | [address] | | | | | Loop Mailcode: OPC5 | [phone] | | | | | Outpatient Clinic | | | | | | [facility], | | | | | | [place] [address] | | | | | | [phone] | | | +--------+ + + + [...]
--- OUTSIDE RECORDS SUMMARY | ~2019-10-17 | XMS | Encounter Summary ---
Demographics + + + | Address | [address] | | | [place] [address] | + + + | Home Phone [...] Providers + +------+ + | Care Teacher Drama Name | Role | Phone | + [...] | | | [facility] | [place], [place] | | | | | [address] | [address] | | | | | [address] | [phone] | | | | | Physician's Pavilion | | | | | | Physician's | | | | | | Pavilion [place], | | | | | | [place] [address] | | | | | | [phone] | | | +--------+ + + + [...]
--- OUTSIDE RECORDS SUMMARY | 2019-10-17 10:10 | XMS ---
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 JOHNNYYOLA PHONE: [phone] Daniella has no Care Guidelines for this patient. Care History Medical/Surgical 12/14/2018 [facility] HISTORY:\T\nbsp; SPINE SURGERY - PAIN MEDICATIONS THROUGH [facility], [place], [place] ([phone]) HX: MENIERE\T\#39; S SYNDROME (HAS RX FOR MECLIZINE THROUGH PCP DR CLEMENCIA FENTON); MIGRAINES;OSTEOARTHRITIS;SCOLIOSIS;DUMPING SYNDROME;IBS CHRONIC PAIN. 11/10/2018 [facility] CONTACTED PATIENT. PATIENT HAS A PCP APT WITH PCP OFFICE ON 11/15/18 FOR ER FOLLOW UP. E.D. VISIT COUNT (12 MO.) [address] [facility] [address] [facility] TOTAL 5 NOTE: Visits indicate total known visits. ED/UCC VISIT TRACKING (12 MO.) 10/17/2019 10:08 [facility] [place] TYPE: Emergency COMPLAINT: - FLU SYMPTOMS 10/16/2019 03:00 [facility] [place] TYPE: Emergency COMPLAINT: - FOOT PAIN 06/25/2019 21:38 [facility] [place] TYPE: Emergency COMPLAINT: - RIGHT SHOULD/ARM PAIN DIAGNOSES: - Allergy status to sulfonamides status - Other terminologist (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 - Allergy status to [...] pain - Dizziness and giddiness - Other terminologist (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 - Allergy status to [...] Emergency COMPLAINT: - WEAKNESS/DIAHRREA/VOMITING DIAGNOSES: - Other terminologist (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 - Allergy status to [...] visits to display in this time frame [email or web address]
[2019-10-17] MEDS ORDERED: PROMETHAZINE HC25 M1 PO (12:30)
[2019-10-17] MEDS ORDERED: PROMETHAZINE HC25 MG PR (12:30)
== END 2019-10-17 12:46 | disposition home or self-care (01) ==
LOC: ED 10:07
DX: R11.2 Nausea with vomiting, unspecified (principal); R10.13 Epigastric pain; G43.909 Migraine, unspecified, not intractable, without status migrainosus; Z87.891 Personal history of nicotine dependence; Z88.2 Allergy status to sulfonamides; Z88.0 Allergy status to penicillin; Z88.1 Allergy status to other antibiotic agents; Z88.5 Allergy status to narcotic agent; Z79.899 Other long term (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
CPT/HCPCS: 80053; 81001; 83690; 83735; 85025; 96361; 96374; 99284-25; J2765; J7040

== ENCOUNTER 2019-11-17 21:03 | Emergency (ER) | payer MEDICARE, OTHER ==
[~2019-11-17] VITALS: Ht 167.6 cm; Wt 91.6 kg
--- OUTSIDE RECORDS SUMMARY | ~2019-11-17 | XMS | Encounter Summary ---
Demographics + + + | Address | [address] | | | [place] [address] | + + + | Home Phone | | + + + | Preferred Language | Unknown | + + + | Marital Status | Single | + + + | Moravian Affiliation | ADV | + + + | Race | White | + + + | Ethnic Group | Not or | + + + Author + + + | Author | [facility] | + + + | Organization | [facility] | + + + | Address | [...] Team Providers + +------+ + | Care Direct Support Worker Name | Role | Phone | + [...] + + + | Closed | | Neurology | Diagnoses | Miracle, | Ian General | | | | | Migraine | NIHARIKA Jean | [address] | | | | | headache | [address] | | | | | Procedures | [address] | Mailcode: | | | | | CONSULT TO | [place], [place] | [address] | | | | | NEUROLOGY | [address] | for Health | | | | | | | and Healing, | | | | | | | Building [address], | | | | | | | 8th Floor | | | | | | | [place], [place] | | | | | | | [address] | | | | | | | Phone: | | | | | | | [phone] | | | | | | | Fax: | | | | | | | [phone] | +--------+--------+ + + + + Reason for Visit +--------+ + | Reason | Comments | +--------+ + | Pain | back, legs, headache | +--------+ + Encounter Details +--------+---------+ + + + | Date | Type | Department | Care Team | Description | +--------+---------+ + + + | 08/12/ | Office | [facility] Comprehensive | Delfina Molina, | Migraine Headache | | 2006 | Visit | Pain Center at | ANP | (Primary Dx); | | | | [facility] | | Spondylosis with | | | | [address] | | Myelopathy, Lumbar | | | | Mailcode: CH15P | | Region; Neck Pain; | | | | [facility] | | Right shoulder | | | | and Healing, | | rotator cuff strain; | | | | Building | | Fibromyalgia | | | | Floor [place], [place] | | syndrome 729.1; | | | | [address] | | Depression | | | | [phone] | | | +--------+---------+ + + + [...] + + + | Blood Pressure | 144/92 | 08/12/2006 8:11 AM | | | | | PST | | + + + + + | Pulse | 78 | 08/12/2006 8:11 AM | | | | | PST | | + + + + + | Temperature | 36.9 C (98.5 F) | 08/12/2006 8:11 AM | | | | | PST | | + + + + + | Respiratory Rate | 18 | 08/12/2006 8:11 AM | | | | | PST | | + + + + + | Oxygen Saturation | - | - | | + + + + + | Inhaled Oxygen | - | - | | | Concentration | | | | + + + + + | Weight | 91.1 kg (200 lb 14.4 | 08/12/2006 8:11 AM | | | | oz) | PST | | + + + + + | Height | 175.3 cm (5' 9") | 08/12/2006 8:11 AM | | | | | PST | | + + + + + | Body Mass Index | 29.67 | 08/12/2006 8:11 AM | | | | | PST | | + + + + + documented in this encounter Patient Instructions Patient Instructions 08/12/2006 9:26 AM PST 1. Schedule orthopedic and neurology consults 2. Continue with trileptal may increase to 150mg, 1 1/2 tablets twice a day. Only change w hen your headache today has resolved. 3. Continue with PT and Psychology as scheduled. 4. Morphine sulfate IR 15mg 1 tablet evry 4 -6 hours as needed for pain NTE 4 per day. Log effects. 5. Call clinic with any concerns or questions. 6. Follow up in two weeks documented in this encounter Progress Notes Delfina Molina - 08/12/2006 8:44 AM PSTFormatting of this note might be different from lesli gomez. 08/12/2006 Belinda Meehan is a 46 y.o. female [facility] Return Visit Chief Complaint: Chief Complaint Patient presents with Pain back, legs, headache History of Present Illness: Belinda Meehan is a 46 y.o. year-old female with a history of chronic pain due to fibromyalgia amd other joint pain. Belinda Barnes is here today for a follow up visit, and reports resolution of her abdominal pain since prior visit but aht her headaches have increase. She reports decreased tingling and s hooting pain in the legs since being on trileptal, she denies any adverse side effects with this new medication. She increased the trileptal from 75mg to 150mg 2-3 days ago. Jose reports waking up last night 0230 from and headache "not had it this bad " on the righ t side going down neck, like hammer hitting head. Associated with nausea no vomiting; photop hobia and phonophobia. She reports these spyptoms no different to her typical headaches, gray rodriguez reports going to the ED for the headaches two weeks ago and "they didn't do anything". Pain aggravating factors include over activity, stress, lack of sleep, for back sitting sta nding and lying on side; headaches light and sound sensative and alleviating factors are pil low under knees helps with leg pain, dark room and quiteness resting for headache physical t herapy and medications for the neck and shoulder. She reports oxycodone helped with the back and abdominal, it took an edge off the headaches "it made me feel like I don't care about them". Has tried morphine IV and repeorts no a dverse effects. Belinda Barnes reports mood unchanged and she reports sleeping unchanged since prior visit. There have been no reported new procedures, diagnostic studies or changes in medical care s joycelyn prior visit. Current outpatient prescriptions Medication Sig Dispense Refill ACTONEL 35 MG TAB take 1 tablet (35mg) by oral route once weekly in the morning, at dona st 30 minutes before the first food, beverage, or medication of the day TRILEPTAL 150 MG TAB take 1/2 tablet PO at bedtime if after three days no side effects increase to 1/2 tablet twice a day X 7 days, then increase in 2-3 day intervals to 150 mg or ally every 12hours. 60 0 CYANOCOBALAMIN 1,000 MCG TAB 1 x monthly WELLBUTRIN XL 300 MG 24 HR TAB 1 tab daily CALTRATE 600 OR None Entered PROMETHAZINE 25 MG TAB once daily CALCIUM + D 600 MG-200 UNIT TAB 4 tabs daily Side effects: actonel maybe causing her dizziness Past Medical History Diagnosis Date CHRONIC ABDOMINAL PAIN on Oxycodone, NSAIDs, ASA RUQ u/s at OSH reportedly nl panc, bile ducts, liver; ct abd/pel normal, KIDNEY STONE 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 2006 endoscopy VERTEBRAL FRACTURE T7,8,9 Xray T spine 2003 Past Surgical History Procedure Date Gastric bypass C. Deveney wt 278 01/18 Paniculectomy Hx cholecystectomy Hx hysterectomy Hx salpingo-oophorectomy Colonoscopy 03/2006 Hx tonsillectomy Pr d&c after delivery Pr inject trigger point, 1 or 2 Family History Problem Relation Cancer Mother Heart Father Additional Family History Father Migraine Additional Family History Mother Migraine Collection Information Collection Date Collection Time 07/30/2006 11:20 AM Component Results SPINE, CERVICAL, 3 VIEWS: Radiologist 1: MARINA DOBSON MD STUDY: Cervical spine, AP, lateral, and odontoid views. DATE: 07/30/2006 COMPARISON: NONE FINDINGS: There is mild disc space narrowing at C3-4 through C6-7. There is no significant uncovertebral spurring. The facets articulate normally and the spinous processes are intact. The odontoid is intact and the lateral masses are symmetric. The prevertebral soft tissues are normal in thickness. IMPRESSION: 1. Mild disc space narrowing from C3-4 through C6-7 Physical examination: BP 144/92 | Pulse 78 | Temp (Src) 98.5 F (36.9 C) (Oral) | Resp 18 | Ht 1.753 m (5' 9") | Wt 91.128 kg (200 lbs 14.4 oz) Body mass index is 29.67 kg/(m^2). General appearance:overweight, emotionally distressed due to headache Alert; cooperative. Impression: 346.90D Migraine Headache 721.42 Spondylosis with Myelopathy, Lumbar Region 723.1B Neck Pain 959.2U Right shoulder rotator cuff strain 729.1 Fibromyalgia syndrome 729.1 311G Depression Recommendations/Plan: total 30 minute visit with 50% spent in reviewing the progress notes, imaging and counselli ng/education of the patient. 1. I reviewed endocrinology consultation and lab results and discussed with patient. 2. I reviewed cervical spine xray and discussed with patient no pain pathology of concern indicated in imaging report. 3. Schedule orthopedic (knee)and neurology (headache) consults 4. Continue with trileptal may increase to 150mg, 1 1/2 tablets twice a day. Only change w hen your headache today has resolved. Encouraged to watch for headaches worsening. 5. Continue with PT and Psychology as scheduled. 6. Morphine sulfate IR 15mg, 1 tablet every 4 -6 hours as needed for pain NTE 4 per day. Lo g effects. - material risks of opioids and an opioid agreement discussed and signed by patient, she as given a copy. 7. Call clinic with any concerns or questions. 8. Follow up in two weeks or PRN DELFINA MOLINA [facility] Mail code CH 4P [facility] and [address] [place] [address] Alisha Marquez - 7 8:25 AM PSTCMA History: PMH/PSH/SH/FH review 1. Has your pain changed from your last visit? increased 2. Do you have any new weakness or decrease in sensation? yes Knees and a weakness in her upper arms with some tingling going down the arm. She had trouble raising her R arm. Has h ad a GOTTLIEB since 2:30 this morning, some nausea and light sensitivity. 3. Do you have any difficulty with urination? No 4. How often do you have a bowel movement? once daily 5. Are you having difficulties with sexual function? Yes 6. Do your medications cause any side effects? Not sure if the actonel is bothering her ( she got some dizziness on standing) 7. Have you had physical therapy appointments since your last visit? yes 8. Have you had psychology appointments since your last visit? yes 9. Have you had any diagnostic studies since your last appointment? Yes x-ray and blood wor k when she left her last appt with you 10. Do you require any medication refills today? Not sure documented in this encounte r Plan of Treatment Not on filedocumented as of this encounter Visit Diagnoses + + | Diagnosis | + + | Migraine headache - Primary Migraine, unspecified, without mention of intractable | | migraine without mention of status migrainosus | + + | Spondylosis with myelopathy, lumbar region | + + | Neck pain Cervicalgia | + + | Right shoulder rotator cuff strain Injury, other and unspecified, shoulder and upper | | arm | + + | Fibromyalgia syndrome 729.1 Mylagia and myositis, unspecified | + + | Depression Depressive disorder, not elsewhere classified | + + documented in this encounter
--- OUTSIDE RECORDS SUMMARY | ~2019-11-17 | XMS | Encounter Summary ---
Demographics + + + | Address | [address] | | | [place] [address] | + + + | Home Phone | | + + + | Preferred Language | Unknown | + + + | Marital Status | | + + + | Anabaptism Affiliation | 1001 | + + + | Race | Unknown | + + + | Ethnic Group | Unknown | + + + Author + + + | Author | [facility] | | | and [place] | + + + | Organization | [facility] | | | [...] Team Providers + +------+ + | Care Knitted Garment Finisher Name | Role | Phone | + [...] | +--------+ + + + + | 07/19/ | Telephone | [facility] | Alanis, | Lab Results | | 2019 | | MEDICINE [address] [place] [address] | MD Petrona | | | | | [facility] | [address] [place] [address] | | | | | [place] [address] | [place] [address] | | | | | [phone] | [phone] | | | | | | | [...] | | 2019 | Visit | | [facility] [address] | | | | | | [address] [place] | | | | | | [place] [address] | | | | | | [phone] | | | | | | | | +--------+---------+ + + + | 12/20/ | Office | Otolaryngology | Ulysses Genao MD | | | 2020 | Visit | | [address] | | | | | | [address] [place], | | | | | | [place] [address] | | | | | | [phone] | | | | | | | | +--------+---------+ + + + | 02/15/ | Office | Internal Medicine | Alanis, | | | 2019 | Visit | | MD Petrona | | | | | | [address] [place] | | | | | | [place] [address] | | | | | | [phone] | | | | | | | | +--------+---------+ + + + documented as of this encounter Visit Diagnoses Not on filedocumented in this encounter"
--- OUTSIDE RECORDS SUMMARY | ~2019-11-17 | XMS | Encounter Summary ---
Demographics + + + | Address | [address] | | | [place] [address] | + + + | Home Phone | | + + + | Preferred Language | Unknown | + + + | Marital Status | | + + + | Scientology Affiliation | 1001 | + + + | Race | Unknown | + + + | Ethnic Group | Unknown | + + + Author + + + | Author | [facility] | | | and [place] | + + + | Organization | [facility] | | | [...] Team Providers + +------+ + | Care General Internal Medicine Physician Name | Role | Phone | + [...] + + | Authorized | Specialty | | Diagnoses | | Strickland [facility], | | | Services | | Closed | Emmy-Jefft | [address] | | | Required | | displaced | i, | [address] | | | | | fracture of | [address] | [address] | | | | | distal | , MD [address] | [place], [place] | | | | | phalanx of | [address] | [address] | | | | | left great | [place], | Phone: | | | | | toe, initial | [place] | [phone] | | | | | encounter | [address] | Fax: | | | | | | Phone: | [phone] | | | | | | [phone] | | | | | | | Fax: | | | | | | | [phone] | | + + + + + + + Reason for Visit + + + | Reason | Comments | + + + | Results, Imaging | | + + + Encounter Details +--------+ + + + + | Date | Type | Department | Care Team | Description | +--------+ + + + + | 11/14/ | Telephone | [facility] | Alanis, | Results, Imaging | | 2019 | | MEDICINE [address] | MD Petrona | | | | | [facility] | [address] [facility] | | | | | [place] [address] | [place] [address] | | | | | [phone] | [phone] | | | | | | | [...] | | 2019 | Visit | | [facility] [address] | | | | | | [address] [place] | | | | | | [place] [address] | | | | | | [phone] | | | | | | | | +--------+---------+ + + + | 12/20/ | Office | Otolaryngology | Ulysses Genao MD | | | 2019 | Visit | | [address] | | | | | | [address] [place], | | | | | | [place] [address] | | | | | | [phone] | | | | | | | | +--------+---------+ + + + | 02/15/ | Office | Internal Medicine | EmmyAnjum, | | | 2019 | Visit | | MD Petrona | | | | | | [address] | | | | | | [place] [address] | | | | | | [phone] | | | | | | | | +--------+---------+ + + + + + +--------+ + + | Name | Type | Priori | Associated Diagnoses | Order Schedule | | | | ty | | | + + +--------+ + + | Podiatry, External - | Outpatient | Routin | Closed displaced | Expected: | | AMB Referral | Referral | e | fracture of distal | 11/15/2019, Expires: | | | | | phalanx of left | 11/14/2020 | | | | | great toe, initial | | | | | | encounter | | + + +--------+ + + documented as of this encounter Visit Diagnoses + + | Diagnosis | + + | Closed displaced fracture of distal phalanx of left great toe, initial encounter - | | Primary | + + documented in this encounter"
--- OUTSIDE RECORDS SUMMARY | ~2019-11-17 | XMS | Encounter Summary ---
Demographics + + + | Address | [address] | | | [place] [address] | + + + | Home Phone | | + + + | Preferred Language | Unknown | + + + | Marital Status | Single | + + + | Bahai Affiliation | ADV | + + + [...] Team Providers + +------+ + | Care Mill Machinist Name | Role | Phone | + +------+ + | Pedrito Gutierrez MD | PCP | | + +------+ + Reason for Visit + + + | Reason | Comments | + + + | Lab findings, | | | teaching, guidance, | | | and counseling | | + + + Encounter Details +--------+ + + + + | Date | Type | Department | Care Team | Description | +--------+ + + + + | 03/14/ | Telephone | Orthopaedics at | Hai Hoyos, | Lab findings, | | 2008 | | [facility] [address] | MD | teaching, guidance, | | | | [address] | | and counseling | | | | Mailcode: [id number] | | | | | | [facility] | | | | | | [place], [place] | | | | | | [address] | | | | | | [phone] | | | +--------+ + + + [...]
--- OUTSIDE RECORDS SUMMARY | ~2019-11-17 | XMS | Encounter Summary ---
Demographics + + + | Address | [address] | | | [place] [address] | + + + | Home Phone | | + + + | Preferred Language | Unknown | + + + | Marital Status | | + + + | Presybeterian Affiliation | 1001 | + + + [...] Team Providers + +------+ + | Care Picked Edge Sewing Machine Operator Name | Role | Phone [...] Description | +--------+--------+ + + + | 09/04/ | Refill | [facility] | Alanis, | Medication Refill | | 2018 | | MEDICINE [address] [place] [address] | MD Petrona | | | | | [facility] | [address] [place] [address] | | | | | [place] [address] | [place] [address] | | | | | [phone] | [phone] | | | | | | | [...] | | 2019 | Visit | | [facility] [address] | | | | | | [address] [place] | | | | | | [place] [address] | | | | | | [phone] | | | | | | | | +--------+---------+ + + + | 12/20/ | Office | Otolaryngology | Ulysses Genao MD | | | 2019 | Visit | | [address] | | | | | | [address] [place], | | | | | | [place] [address] | | | | | | [phone] | | | | | | | | +--------+---------+ + + + | 02/15/ | Office | Internal Medicine | Alanis, | | | 2019 | Visit | | MD Petrona | | | | | | [address] [place] [address] [place] | | | | | | [place] [address] | | | | | | [phone] | | | | | | | | +--------+---------+ + + + documented as of this encounter Visit Diagnoses Not on filedocumented in this encounter"
--- OUTSIDE RECORDS SUMMARY | ~2019-11-17 | XMS | Encounter Summary ---
Demographics + + + | Address | [address] | | | [place] [address] | + + + | Home Phone | | + + + | Preferred Language | Unknown | + + + | Marital Status | | + + + | Lutheran Affiliation | 1001 | + + + [...] Team Providers + +------+ + | Care Night Time Nanny Name | Role | Phone | + [...] | +--------+ + + + + | 01/25/ | Telephone | [facility] | Alanis, | Medical Problem | | 2017 | | MEDICINE [address] [place] [address] | MD Petrona | | | | | [facility] | [address] [place] [address] | | | | | [place] [address] | [place] [address] | | | | | [phone] | [phone] | | | | | | | [...] | | 2019 | Visit | | [facility] [address] | | | | | | [address] [place] | | | | | | [place] [address] | | | | | | [phone] | | | | | | | | +--------+---------+ + + + | 12/20/ | Office | Otolaryngology | Ulysses Genao MD | | | 2019 | Visit | | [address] | | | | | | [address] [place], | | | | | | [place] [address] | | | | | | [phone] | | | | | | | | +--------+---------+ + + + | 02/15/ | Office | Internal Medicine | Alanis, | | | 2019 | Visit | | MD Petrona | | | | | | [address] [place] | | | | | | [place] [address] | | | | | | [phone] | | | | | | | | +--------+---------+ + + + documented as of this encounter Visit Diagnoses Not on filedocumented in this encounter"
--- OUTSIDE RECORDS SUMMARY | ~2019-11-17 | XMS | Encounter Summary ---
Demographics + + + | Address | [address] | | | [place] [address] | + + + | Home Phone | | + + + | Preferred Language | Unknown | + + + | Marital Status | | + + + | Mandaen Affiliation | 1001 | + + + | Race | Unknown | + + + | Ethnic Group | Unknown | + + + Author + + + | Author | [facility] | | | and [place] | + + + | Organization | [facility] | | | and [...] Team Providers + +------+ + | Care Senior Telecommunications Technician Name | Role | Phone | + +------+ + | Petrona Thapa | PCP | | | MD | | | + +------+ + Reason for Visit + + + | Reason | Comments | + + + | Referral | | + + + Encounter Details +--------+ + + + + | Date | Type | Department | Care Team | Description | +--------+ + + + + | 06/03/ | Telephone | [facility] | Alanis, | Referral | | 2017 | | MEDICINE [address] [place] [address] | MD Petrona | | | | | [facility] | [address] [place] [address] | | | | | [place] [address] | [place] [address] | | | | | [phone] | [phone] | | | | | | | [...] | | 2019 | Visit | | [facility] [address] | | | | | [address] [place] | | | | | | [place] [address] | | | | | | [phone] | | | | | | | | +--------+---------+ + + + | 12/20/ | Office | Otolaryngology | Ulysses Genao MD | | | 2019 | Visit | | [address] | | | | | | [address] [place], | | | | | | [place] [address] | | | | | | [phone] | | | | | | | | +--------+---------+ + + + | 02/15/ | Office | Internal Medicine | Alanis, | | | 2019 | Visit | | MD Petrona | | | | | | [address] | | | | | | [place] [address] | | | | | | [phone] | | | | | | | | +--------+---------+ + + + documented as of this encounter Visit Diagnoses Not on filedocumented in this encounter"
--- OUTSIDE RECORDS SUMMARY | ~2019-11-17 | XMS | Encounter Summary ---
Demographics + + + | Address | [address] | | | [place] [address] | + + + | Home Phone [...] + + + | Author | [facility] | + + + | Organization | [facility] | + + + | Address | [...] Team Providers + +------+ + | Care Floor Attendant Name | Role | Phone | + +------+ + | Pedrito Gutierrez MD | PCP | | + +------+ + Encounter Details +--------+ + + + + | Date | Type | Department | Care Team | Description | +--------+ + + + + | 10/14/ | Documentati | MARK Basilio | Miranda Lambert, | | | 2006 | on | [facility] at | ANP | | | | | [facility] | | | | | | [address] | | | | | | Mailcode: [id number] | | | | | | [facility] | | | | | | and Healing, | | | | | | Building ,[address] | | | | | | Floor [place], [place] | | | | | | [address] | | | | | | [phone] | | | +--------+ + + + [...]
--- OUTSIDE RECORDS SUMMARY | ~2019-11-17 | XMS | Encounter Summary ---
Demographics + + + | Address | [address] | | | [place] [address] | + + + | Home Phone | | + + + | Preferred Language | Unknown | + + + | Marital Status | Single | + + + | Orthodoxy Affiliation | ADV | + + + | Race | White | + + + | Ethnic Group | Not or | + + + Author + + + | Author | [facility] | + + + | Organization | [facility] | + + + | Address [...] Team Providers + +------+ + | Care Table Tender Sludge Name | Role | Phone | + +------+ + PCP | Unavailable | + +------+ + Encounter Details +--------+ + + + + | Date | Type | Department | Care Team | Description | +--------+ + + + + | 04/01/ | Results | Endocrinology, | Beto Meeks MD | | | 2000 | Only | Diabetes and | [address] | | | | | Clinical Nutrition | [place], [place] | | | | | [address] | [address] | | | | | Loop Mailcode: [id number] | [phone] | | | | | Outpatient Clinic | | | | | | [facility] | | | | | | [place] [address] | | | | | | [phone] | | | +--------+ + + + [...] | + +--------+ + + + | HEMOGLOBIN | Routin | 04/01/2001 | | Results for this | | EVALUATION | e | 1:27 PM | | procedure are in the | | | | PDT | | results section. | + +--------+ + + + | HEMOGLOBIN A1C, | Routin | 04/01/2001 | | Results for this | | BLOOD | e | 1:27 PM | | procedure are in the | | | | PDT | | results section. | + +--------+ + + + documented in this encounter Results HEMOGLOBIN, ELECTRO, QUANT A2* (04/01/2001 1:27 PM PDT) + + + + + + | Component | Value | Ref Range | Performed | Pathologist | | | | | At | Signature | + + + + + + | HEMOGLOBIN | Request cancelled by | % | | | | A1 | Physician/Floor. | | | | + + + + + + + + | Specimen | + + | | + + + + + | Narrative | Performed At | + + + | Hemoglobin Electrophoresis, Whole Blood Test performed by | | | [facility]. | | + + + + + + + + | Performing | Address | City/State/Zipcode | Phone Number | | Organization | | | | + + + + + | [facility] | [address] | [place] [address] | | | LABORATORY | | | | + + + + + HEMOGLOBIN A1C (04/01/2001 1:27 PM PDT) + +-------+ + + + | Component | Value | Ref Range | Performed | Pathologist | | | | | At | Signature | + +-------+ + + + | HEMOGLOBIN | 5.9 | <7.1 % | | | | A1C | | | | | + +-------+ + + + + + | Specimen | + + | | + + + + + | Narrative | Performed At | + + + | Non-Diabetic 4.0 - 5.9% | | | Level of Control Excellent | | | Less than 7% Good | | | 7.0 - 8.0 Fair | | | 8.1 - 9.5 Poor | | | Greater than 9.5% | | + + + + + + + + | Performing | Address | City/State/Zipcode | Phone Number | | Organization | | | | + + + + + | [facility] | [address] | [place] [address] | | | LABORATORY | | | | + + + + + documented in this encounter Visit Diagnoses Not on filedocumented in this encounter"
--- OUTSIDE RECORDS SUMMARY | ~2019-11-17 | XMS | Encounter Summary ---
Demographics + + + | Address | [address] | | | [place] [address] | + + + | Home Phone [...] Author + + + | Author | [facility] | + + + | Organization | [facility] | + + + | [...] Team Providers + +------+ + | Care Supervisor Tan Room Name | Role | Phone | + +------+ + | Maria Esther Cintron MD | PCP | | + +------+ + Encounter Details +--------+ + + + + | Date | Type | Department | Care Team | Description | +--------+ + + + + | 02/16/ | Telephone | Digestive Health | Chris Padgett, | | | 2007 | | [place] [address] | [address] [facility] | | | | | [place] Mailcode: CH4S | [address] | | | | | [facility] | [place], [place] | | | | | and Healing, | [address] | | | | | Building , [address] | [phone] | | | | | Floor [place], [place] | | | | | | [address] | | | | | | [phone] | | | +--------+ + + + [...]
--- OUTSIDE RECORDS SUMMARY | ~2019-11-17 | XMS | Encounter Summary ---
Demographics + + + | Address | [address] | | | [place] [address] | + + + | Home Phone | | + + + | Preferred Language | Unknown | + + + | Marital Status | | + + + | Jewish Affiliation | 1001 | + + + [...] Team Providers + +------+ + | Care Gripper Machine Operator Name | Role | Phone [...] | +--------+ + + + + | 07/16/ | Telephone | [facility] | Alanis, | Results, Imaging | | 2017 | | MEDICINE [phone] | [facility] [place] | | | | [facility] | [address] [place] [address] | | | | | [place] [address] | [place] [address] | | | | | [phone] | [phone] | | | | | | | [...] | | 2019 | Visit | | [facility] [address] | | | | | | [address] [place] | | | | | | [place] [address] | | | | | | [phone] | | | | | | | | +--------+---------+ + + + | 12/20/ | Office | Otolaryngology | Ulysses Genao MD | | | 2019 | Visit | | [address] | | | | | | [address] [place], | | | | | | [place] [address] | | | | | | [phone] | | | | | | | | +--------+---------+ + + + | 02/15/ | Office | Internal Medicine | Alanis, | | | 2019 | Visit | | [facility] [place] | | | | | | [address] [place] [address] [place] | | | | | | [place] [address] | | | | | | [phone] | | | | | | | | +--------+---------+ + + + documented as of this encounter Visit Diagnoses Not on filedocumented in this encounter"
--- OUTSIDE RECORDS SUMMARY | ~2019-11-17 | XMS | Encounter Summary ---
Demographics + + + | Address | [address] | | | [place] [address] | + + + | Home Phone | | + + + | Preferred Language | Unknown | + + + | Marital Status | | + + + | Worship Affiliation | 1001 | + + + [...] Team Providers + +------+ + | Care Pain Management Nurse Practitioner Name | Role | Phone | + +------+ + | Petrona Thapa | PCP | | | MD | | | + +------+ + Encounter Details +--------+ + + + + | Date | Type | Department | Care Team | Description | +--------+ + + + + | 12/18/ | Hospital | [facility] | Luther Brito MD | Abdominal pain, | | 2018 | Encounter | [facility] | [address] | unspecified | | | | [address] | [place], [place] | abdominal location; | | | | [place], [place] | [address] | Gastroesophageal | | | | [address] | [phone] | reflux disease, | | | | [phone] | | esophagitis presence | | | | | | not specified; | | | | | | History of gastric | | | | | | ulcer; Diarrhea, | | | | | | unspecified type | +--------+ + + + + Social [...] + + + | Blood Pressure | 115/75 | 12/18/2017 12:30 PM | | | | | PDT | | + + + + + | Pulse | 83 | 12/18/2017 12:30 PM | | | | | PDT | | + + + + + | Temperature | 36.5 C (97.7 F) | 12/18/2017 12:01 PM | | | | | PDT | | + + + + + | Respiratory Rate | 15 | 12/18/2017 12:30 PM | | | | | PDT | | + + + + + | Oxygen Saturation | 97% | 12/18/2017 12:30 PM | | | | | PDT | | + + + + + | Inhaled Oxygen | - | - | | | Concentration | | | | + + + + + | Weight | 102.8 kg (226 lb | 12/18/2017 9:14 AM | | | | 10.1 oz) | PDT | | + + + + + | Height | 172.7 cm (5' 8") | 12/18/2017 9:14 AM | | | | | PDT | | + + + + + | Body Mass Index | 34.46 | 12/18/2017 9:14 AM | | | | | PDT | | + + + + + documented in this encounter Discharge Instructions Instructions Mary Jane Grant RN - 12/18/2017 Recovery After Procedural Sedation (Adult) You have been given medicine by vein to make you sleep during your surgery. This may have i ncluded both a pain medicine and sleeping medicine. Most of the effects have worn off. But y ou may still have some drowsiness for the next 6 to 8 hours. Home care Follow these guidelines when you get home: For the next 8 hours, you should be watched by a responsible adult. This person should m brenda sure your condition is not getting worse. Don't drink any alcoholfor the next [address], operate dangerous machinery, or make important business or personal decisio nsduring the next 24 hours. Note: Your healthcare provider may tell you not to take any medicine by mouth for pain or s leep in the next 4 hours. These medicines may react with the medicines you were given in the hospital. This could cause a much stronger response than usual. Follow-up care Follow up with your healthcare provider if you are not alert and back to your usual level o f activity within 12 hours. When to seek medical advice Call your healthcare provider right away if any of these occur: Drowsiness gets worse Weakness or dizziness gets worse Repeated vomiting You can't be awakened Date Last Reviewed: 04/01/201619994884-5476 [employer]. [address] [place] [address], [place] [address]. All righ ts reserved. This information is not intended as a substitute for professional medical care. Always follow your healthcare professional's instructions. documented in this encounter Medications at Time [...] Pain | | | | | | mg per tablet | (not more then 6 | | | | | | | tablets daily). | | | | | + + [...] capsules by | 270 | 3 | 12/11/19 | | | (NEURONTIN) 300 mg | mouth 3 times daily | capsule | | 18 | 8 | | capsuleIndications: | for [...] tablets by | 450 | 1 | 08/25/19 | | | (K-DUR) 20 mEq ER | mouth every morning | tablet | | 18 | 8 | | tablet | and 2 every evening | | | | | | | with food | | | | | + + + +---------+ + + | sucralfate | Take 1 tablet by | 120 | 1 | 09/23/19 | 09/06/201 | | (CARAFATE) 1 g | mouth 4 times daily | tablet | | 18 | 8 | | tablet | as needed. | [...] | | 2019 | Visit | | [facility] [address] | | | | | | [address] | | | | | | [place] [address] | | | | | | [phone] | | | | | | | | +--------+---------+ + + + | 12/20/ | Office | Otolaryngology | Ulysses Genao MD | | | 2019 | Visit | | [address] [place] | | | | | | [address] [place], | | | | | | [place] [address] | | | | | | [phone] | | | | | | | | +--------+---------+ + + + | 02/15/ | Office | Internal Medicine | Alanis, | | | 2019 | Visit | | MD [place] | | | | | | [address] [place] | | | | | | [place] [address] | | | | | | [phone] | | | | | | | | +--------+---------+ + + + documented as of this encounter Procedures + +--------+ + + + | Procedure Name | Priori | Date/Time | Associated Diagnosis | Comments | | | ty | | | | + +--------+ + + + | COLONOSCOPY | | 12/18/2017 | Chronic diarrhea | | | | | 10:53 AM | (K52.9), S/P gastric | | | | | PDT | bypass (Z98.84), | | | | | | Diarrhea, | | | | | | unspecified type | | | | | | (R19.7), | | | | | | Gastroesophageal | | | | | | reflux disease, | | | | | | esophagitis presence | | | | | | not specified | | | | | | (K21.9), History of | | | | | | gastric ulcer | | | | | | (Z87.19), Abdominal | | | | | | pain, unspecified | | | | | | abdominal location | | | | | | (R10. 9), Narcotic | | | | | | dependence (HCC) | | | | | | (F11.20), Obesity | | | | | | (BMI 30.0-34.9) | | | | | | (E66.9) | | + +--------+ + + + | EGD | | 12/18/2017 | Chronic diarrhea | | | | | 10:53 AM | (K52.9), S/P gastric | | | | | PDT | bypass (Z98.84), | | | | | | Diarrhea, | | | | | | unspecified type | | | | | | (R19.7), | | | | | | Gastroesophageal | | | | | | reflux disease, | | | | | | esophagitis presence | | | | | | not specified | | | | | | (K21.9), History of | | | | | | gastric ulcer | | | | | | (Z87.19), Abdominal | | | | | | pain, unspecified | | | | | | abdominal location | | | | | | (R10. 9), Narcotic | | | | | | dependence (HCC) | | | | | | (F11.20), Obesity | | | | | | (BMI 30.0-34.9) | | | | | | (E66.9) | | + +--------+ + + + | EGD | Routin | 12/18/2017 | | Results for this | | | e | 10:49 AM | | procedure are in the | | | | PDT | | results section. | + +--------+ + + + | COLONOSCOPY | Routin | 12/18/2017 | | Results for this | | | e | 10:43 AM | | procedure are in the | | | | PDT | | results section. | + +--------+ + + + | SURGICAL PATHOLOGY | Routin | 12/18/2017 | | Results for this | | EXAM | e | 12:00 AM | | procedure are in the | | | | PDT | | results section. | + +--------+ + + + documented in this encounter Results EGD (12/18/2017 10:49 AM PDT) + + | Specimen | + + | | + + + + -+ | Narrative | Performed At | + + -+ | | [facility] | | GastroenterologyPatient Name: Belinda HigginbothamanasProcedure Date: 12/18/2017 | [facility] | | 10:49 AMMRN: [id number] #: [id number] of : | | | 9Admit Type: AmbulatoryAge: 57[facility]: [facility]Gender: FemaleNote | | | Status: FinalizedAttending MD: Luther Brito [facility] | | | Upper GI endoscopyIndications: Generalized abdominal | | | pain, Heartburn, Suspected esophageal | | | reflux, DiarrheaProviders: Luther Brito MD, Jessica | | | LIUDMILA Epperson, Tal Diaz CMA, Richard | | | Hudson Kumar MD (Anesthesia Staff)Medicines: Monitored | | | Anesthesia CareComplications: No immediate | | | complications.Procedure: Pre-Anesthesia Assessment: - | | | Prior to the procedure, a History and Physical was performed, and | | | patient medications and allergies were reviewed. The patient is | | | competent. The risks and benefits of the procedure and the | | | sedation options and risks were discussed with the patient. All | | | questions were answered and informed consent was obtained. | | | Patient identification and proposed procedure were verified by | | | the physician, the nurse, the anesthesiologist and the | | | bench repair technician in the pre-procedure area in the procedure room. | | | Mental Status Examination: alert and oriented. Airway | | | Examination: normal oropharyngeal airway and neck mobility. | | | Respiratory Examination: clear to auscultation. CV Examination: | | | normal. Prophylactic Antibiotics: The patient does not require | | | prophylactic antibiotics. Prior Anticoagulants: The patient | | | has taken no previous anticoagulant or antiplatelet agents. ASA | | | Grade Assessment: III - A patient with severe systemic | | | disease. After reviewing the risks and benefits, the patient | | | was deemed in satisfactory condition to undergo the procedure. The | | | anesthesia plan was to use monitored anesthesia care (MAC). | | | Immediately prior to administration of medications, the patient | | | was re-assessed for adequacy to receive sedatives. The heart | | | rate, respiratory rate, oxygen saturations, blood pressure, | | | adequacy of pulmonary ventilation, and response to care were | | | monitored throughout the procedure. The physical status of the | | | patient was re-assessed after the procedure. After obtaining | | | informed consent, the endoscope was passed under direct vision. | | | Throughout the procedure, the patient's blood pressure, pulse, | | | and oxygen saturations were monitored continuously. The Endoscope was | | | introduced through the mouth, and advanced to the afferent and | | | efferent jejunal loops. The upper GI endoscopy was | | | accomplished without difficulty. The patient tolerated the | | | procedure well.Findings: The Z-line was irregular and was found | | | 35 cm from the incisors. Biopsies were taken with a cold | | | forceps for histology. Verification of patient identification | | | for the specimen was done by the physician and nurse using the | | | patient's name and date. Estimated blood loss was | | | minimal. Evidence of a Zoe-en-Y gastrojejunostomy was found. | | | The gastrojejunal anastomosis was characterized by healthy | | | appearing mucosa. This was traversed. The ejyip-yg-sjwdbep limb | | | was characterized by healthy appearing mucosa. The | | | jejunojejunal anastomosis was characterized by healthy | | | appearing mucosa. The pplrwhzp-va-pfqpncn limb was not examined | | | as it could not be reached. Biopsies were taken with a cold forceps | | | for histology. Verification of patient identification for the | | | specimen was done by the physician and nurse using the | | | patient's name and date. Estimated blood loss was | | | minimal. Diffuse mildly erythematous mucosa without bleeding was | | | found in the stomach. Biopsies were taken with a cold forceps | | | for histology. Verification of patient identification for the | | | specimen was done by the physician and nurse using the | | | patient's name and date. Estimated blood loss was | | | minimal. An examination of the duodenum was not | | | performed.Impression: - Z-line irregular, 35 cm from the | | | incisors. Biopsied. - Zoe-en-Y gastrojejunostomy with | | | gastrojejunal anastomosis characterized by healthy appearing | | | mucosa. Biopsied. - Erythematous mucosa in the stomach. | | | Biopsied.Recommendation: - Patient has a contact number | | | available for emergencies. The signs and symptoms of potential | | | delayed complications were discussed with the patient. Return | | | to normal activities tomorrow. Written discharge instructions | | | were provided to the patient. - High fiber diet. - | | | Continue present medications. - Await pathology results. - | | | Repeat upper endoscopy for surveillance based on pathology results. | | | - Return to GI clinic PRN. - No aspirin, ibuprofen, | | | naproxen, or other non-steroidal anti-inflammatory drugs. | | | - The findings and recommendations were discussed with the patient. | | | - Low fat diet indefinitely.Luther Brito MD12/18/2017 | | | 11:59:34 AMThis report has been signed electronically.Number of | | | Addenda: 0Note Initiated On: 12/18/2017 10:49 AMTotal Procedure | | | Duration: 0 hours 7 minutes 58 seconds Scope In: 11:00:36 AMScope Out: | | | 11:08:34 AM [facility], [facility] [address] | | | [place] [address] | | | - Return to GI clinic PRN. | | | - No aspirin, ibuprofen, naproxen, or other non-steroidal | | | anti-inflammatory drugs. | | | - The findings and recommendations were discussed with the patient. | | | - Low fat diet indefinitely. | | |Luther Brito MD | | |12/18/2017 11:59:34 AM | | |This report has been signed electronically. | | |Number of Addenda: 0 | | |Note Initiated On: 12/18/2017 10:49 AM | | |Total Procedure Duration: 0 hours 7 minutes 58 seconds | | |Scope In: 11:00:36 AM | | |Scope Out: 11:08:34 AM | | | [facility] [address] [place], [place] | | | [address] | | + + -+ + +---------+ + + | Performing | Address | City/State/Zipcode | Phone Number | | Organization | | | | + +---------+ + + | [facility] | | | | + +---------+ + + COLONOSCOPY (12/18/2017 10:43 AM PDT) + + | Specimen | + + | | + + + + -+ | Narrative | Performed At | + + -+ | | [facility] | | GastroenterologyPatient Name: Belinda Pearson Date: 12/18/2017 | [facility] | | 10:43 AMMRN: [id number] #: [id number] of : | | | 9Admit Type: AmbulatoryAge: 57Room: [facility] 01Gender: FemaleNote | | | Status: FinalizedAttending MD: Luther Brito MDProcedure: | | | ColonoscopyIndications: Generalized abdominal pain, | | | Chronic diarrheaProviders: Luther Brito MD, Maris | | | LIUDMILA Epperson, Tal Diaz CMA, Richard | | | Hudson Kumar MD (Anesthesia Staff)Medicines: Monitored | | | Anesthesia CareComplications: No immediate | | | complications.Procedure: Pre-Anesthesia Assessment: - | | | Prior to the procedure, a History and Physical was performed, and | | | patient medications and allergies were reviewed. The patient is | | | competent. The risks and benefits of the procedure and the | | | sedation options and risks were discussed with the patient. All | | | questions were answered and informed consent was obtained. | | | Patient identification and proposed procedure were verified by | | | the physician, the nurse, the anesthesiologist and the | | | bench repair technician in the pre-procedure area in the procedure room. | | | Mental Status Examination: alert and oriented. Airway | | | Examination: normal oropharyngeal airway and neck mobility. | | | Respiratory Examination: clear to auscultation. CV Examination: | | | normal. Prophylactic Antibiotics: The patient does not require | | | prophylactic antibiotics. Prior Anticoagulants: The patient | | | has taken no previous anticoagulant or antiplatelet agents. ASA | | | Grade Assessment: III - A patient with severe systemic | | | disease. After reviewing the risks and benefits, the patient | | | was deemed in satisfactory condition to undergo the procedure. The | | | anesthesia plan was to use monitored anesthesia care (MAC). | | | Immediately prior to administration of medications, the patient | | | was re-assessed for adequacy to receive sedatives. The heart | | | rate, respiratory rate, oxygen saturations, blood pressure, | | | adequacy of pulmonary ventilation, and response to care were | | | monitored throughout the procedure. The physical status of the | | | patient was re-assessed after the procedure. After I obtained | | | informed consent, the scope was passed under direct vision. | | | Throughout the procedure, the patient's blood pressure, pulse, | | | and oxygen saturations were monitored continuously. The Colonoscope | | | was introduced through the anus and advanced to 5 cm into the | | | ileum. The colonoscopy was technically difficult and complex | | | due to previous surgery, restricted mobility of the colon, a | | | redundant colon, significant looping, a tortuous colon and the | | | patient's body habitus. The patient tolerated the procedure | | | well. The quality of the bowel preparation was fair.Findings: | | | The perianal and digital rectal examinations were normal. | | | A 7 mm polyp was found in the transverse colon. The polyp was sessile. | | | The polyp was removed with a hot snare. Resection and | | | retrieval were complete. Verification of patient identification | | | for the specimen was done by the physician and nurse using the | | | patient's name and date. Estimated blood loss was | | | minimal. No other significant abnormalities were identified in a | | | careful examination of the remainder of the colon. | | | Biopsies for histology were taken with a cold forceps from the right | | | colon, left colon and transverse colon for evaluation of | | | microscopic colitis. No other significant abnormalities | | | were identified in a careful examination of the remainder of | | | the colon. The terminal ileum appeared normal. The | | | retroflexed view of the distal rectum and anal verge was normal and | | | showed no anal or rectal abnormalities.Impression: - | | | Preparation of the colon was fair. - One 7 mm polyp in the | | | transverse colon, removed with a hot snare. Resected and | | | retrieved. - The examined portion of the ileum was normal. | | | - The distal rectum and anal verge are normal on retroflexion view. | | | - Biopsies were taken with a cold forceps from the right colon, | | | left colon and transverse colon for evaluation of microscopic | | | colitis.Recommendation: - Patient has a contact number available | | | for emergencies. The signs and symptoms of potential delayed | | | complications were discussed with the patient. Return to normal | | | activities tomorrow. Written discharge instructions were | | | provided to the patient. - High fiber diet and low fat diet. | | | - Continue present medications. - Await pathology results. | | | - Repeat colonoscopy in 3 years for surveillance based on | | | pathology results. - Return to GI clinic PRN. - No | | | aspirin, ibuprofen, naproxen, or other non-steroidal | | | anti-inflammatory drugs. - The findings and recommendations were | | | discussed with the patient.Luther Brito MD12/18/2017 12:03:26 | | | PMThis report has been signed electronically.Number of Addenda: 0Note | | | Initiated On: 12/18/2017 10:43 AMScope Withdrawal Time: 0 hours 15 | | | minutes 57 seconds Total Procedure Duration: 0 hours 44 minutes 29 | | | seconds Scope In: 11:12:28 AMScope Out: 11:56:57 AM [place] | | | [facility], [address] [place] [address] | | | [phone] | | | - Await pathology results. | | | - Repeat colonoscopy in 3 years for surveillance based on pathology | | | results. | | | - Return to GI clinic PRN. | | | - No aspirin, ibuprofen, naproxen, or other non-steroidal | | | anti-inflammatory drugs. | | | - The findings and recommendations were discussed with the patient. | | |Luther Brito MD | | |12/18/2017 12:03:26 PM | | |This report has been signed electronically. | | |Number of Addenda: 0 | | |Note Initiated On: 12/18/2017 10:43 AM | | |Scope Withdrawal Time: 0 hours 15 minutes 57 seconds | | |Total Procedure Duration: 0 hours 44 minutes 29 seconds | | |Scope In: 11:12:28 AM | | |Scope Out: 11:56:57 AM | | | [facility], [address] [place] [address] | | | [id number] | | + + -+ + +---------+ + + | Performing | Address | City/State/Zipcode | Phone Number | | Organization | | | | + +---------+ + + | [facility] | | | | + +---------+ + + Surgical Pathology Exam (12/18/2017 12:00 AM PDT) + + | Specimen | + + | | + + + + + | Narrative | Performed At | + + + | SPECIMEN(S): A GASTRIC BIOPSY SPECIMEN(S): B JEJUNAL BIOPSY | [facility] | | SPECIMEN(S): C GE JUNCTION SPECIMEN(S): D TRANSVERSE COLON POLYP | [facility] | | SPECIMEN(S): E RANDOM COLON BIOPSY SPECIMEN SOURCE: A. GASTRIC | | | BIOPSY B. JEJUNAL BIOPSY C. GE JUNCTION D. TRANSVERSE COLON POLYP | | | E. RANDOM COLON BIOPSY CLINICAL HISTORY: K52.9 (noninfective | | | gastroenteritis and colitis, unspecified); Z98.84 (S/P) gastric | | | bypass; R19.7 (diarrhea, unspecified); K21.9 (gastroesophageal reflux | | | disease without esophagitis); Z87.19 (personal history of other | | | diseases of the digestive system); R10.9 (unspecified abdominal pain). | | | MICROSCOPIC DESCRIPTION: Histologic sections of all submitted | | | blocks are examined by light microscopy. These findings, together with | | | the gross examination, support the pathologic diagnosis. FINAL | | | PATHOLOGIC DIAGNOSIS: A. Gastric biopsy: - Benign gastric-type | | | mucosa with focal slight chronic inflammation. - Negative for | | | evidence of Helicobacter organisms on routine HE stained sections. | | | B. Jejunal biopsy: - Benign small bowel mucosa, negative for | | | specific diagnostic abnormality. C. GE junction, biopsy: - | | | Gastroesophageal junction with reactive epithelial features and mild | | | chronic inflammation. - Negative for specialized intestinal | | | metaplasia or dysplasia. D. Transverse colon polyp, biopsy: - | | | Tubular adenoma (one fragment). E. Random colon biopsy: - | | | Benign colonic mucosa, negative for specific diagnostic abnormality. | | | JVR:[facility]:C2NR GROSS DESCRIPTION: Received in five parts. | | | All specimens are received in formalin, labeled "Belinda Meehan." | | | All specimen descriptions are listed on the requisition, not the | | | containers. A. Part A, "gastric biopsies," consists of five | | | foss-pink and karimi colored tissue fragments measuring from 0.15 to 0.5 | | | cm. Submitted all in (A1). B. Part B, "jejunal biopsies," | | | consists of eight foss-pink and karimi colored tissue fragments measuring | | | from 0.1 to 0.4 cm. Submitted all in (B1). C. Part C, "GE | | | junction biopsies," consists of two foss-karimi tissue fragments | | | measuring from 0.3 to 0.5 cm. Submitted all in (C1). D. Part | | | D, "transverse colon polyp," consists of a 0.5 x 0.4 x 0.25 cm, | | | yellow-pink and karimi colored tissue fragment. Submitted all in (D1). | | | E. Part E, "Random colon biopsies," consists of nine pink-karimi | | | tissue fragments measuring from 0.1 to 0.4 cm. Submitted all in | | | (E1). ka:CLR:samantha PERFORMING LABORATORY: Tissue processing and | | | slide preparation were performed by [facility] | | | [facility] [address] [address] (Spiral Winder: Stephen Jacobson, | | | Joanna CLIA#: [id number]). Professional interpretation was performed | | | by [facility], [facility] | | | [place] [address] (Spiral Winder: Stephen | | | Joanna Jacobson; CLIA#: [id number]). Diagnostician: Stephen Khan | | | Kavon SHEEHAN Pathologist Electronically Signed 12/21/2017 | | + + + + +---------+ + + | Performing | Address | City/State/Zipcode | Phone Number | | Organization | | | | + +---------+ + + | [facility] | | | | | [facility] | | | | + +---------+ + + documented in this encounter Visit Diagnoses + + | Diagnosis | + + | Abdominal pain, unspecified abdominal location | + + | Gastroesophageal reflux disease, esophagitis presence not specified | + + | History of gastric ulcer Personal history of other diseases of digestive system | + + | Diarrhea, unspecified type | + + documented in this encounter Administered Medications + +--------+---------+------+------+------+ | Medication Order | MAR | Action | Dose | Rate | Site | | | Action | Date | | | | + +--------+---------+------+------+------+ + +---+ | albuterol 2.5 mg/3 mL nebulizer | | | solution 2.5 mg 2.5 mg, | | | Nebulization, ONCE PRN, Wheezing, | | | Starting Thu12/18/17 at 0905, For | | | 1 dose, RT will administer., | | | Pre-op | | + +---+ | | | + +---+ | albuterol 2.5 mg/3 mL nebulizer | | | solution 2.5 mg 2.5 mg, | | | Nebulization, ONCE PRN, Wheezing, | | | Starting Thu12/18/17 at 1223, For | | | 1 dose, Notify anesthesia if | | | patient is wheezing and does not | | | have a history of asthma or COPD | | | or current smoking., | | | Recovery/Phase I | | + +---+ | | | + +---+ | albuterol-ipratropium (DUONEB) | | | 2.5-0.5 mg/3 mL nebulizer | | | solution 3 mL 3 mL, | | | Nebulization, ONCE PRN, Wheezing, | | | Starting Thu12/18/17 at 0905, For | | | 1 dose, Pre-op | | + +---+ | | | + +---+ | albuterol-ipratropium (DUONEB) | | | 2.5-0.5 mg/3 mL nebulizer | | | solution 3 mL 3 mL, | | | Nebulization, ONCE PRN, Wheezing, | | | Shortness of Breath, Starting | | | 12/18/17 at 1223, For 1 dose, | | | Recovery/Phase I | | + +---+ | | | + +---+ | dextrose 50% injection 12.5-25 | | | g 12.5-25 g, Intravenous, EVERY | | | 15 MIN PRN, Low Blood Sugar, Give | | | 12.5g (25 mL) IV if blood | | | glucose 50-69 mg/dL. Give 25g | | | (50 mL) IV if blood glucose < 50, | | | Starting 12/18/17 at 0905, | | | Repeat in 15 min if blood glucose | | | remains < 70 mg/dL. Repeat | | | blood glucose in 30 min once | | | blood glucose > 70., Pre-op | | + +---+ | | | + +---+ | dextrose 50% injection 12.5-25 | | | g 12.5-25 g, Intravenous, EVERY | | | 15 MIN PRN, Low Blood Sugar, For | | | hypoglycemia. Give 12.5g (25ml) | | | IV if blood glucose 50-69 | | | mg/dL. Give 25g (50ml) IV if | | | blood glucose < 50, Starting Fri | | | 12/18/17 at 1223, Give over 2 min. | | | Repeat in 15 min if blood | | | glucose remains < 70 mg/dL. | | | Repeat blood glucose in 30 min | | | once blood glucose > 70., | | | Recovery/Phase I | | + +---+ | | | + +---+ | fentaNYL (PF) injection 25-50 | | | mcg 25-50 mcg, Intravenous, | | | EVERY 5 MIN PRN, Pain, Starting | | | Thu12/18/17 at 1223, Maximum total | | | dose 250 mcg. PACU IV Narcotic | | | Priority: Only use fentanyl for | | | immediate post-op pain (one dose) | | | or breakthrough pain when any | | | other IV narcotics ordered have | | | been ineffective (if ordered). | | | If both morphine and | | | hydromorphone are ordered, use | | | morphine first, and use | | | hydromorphone if morphine | | | ineffective., Recovery/Phase I | | + +---+ | | | + +---+ + +---------+ +---+---+---+ | lactated ringers (LR) infusion | New Bag | 12/19/19 | | | | | at 100 mL/hr, Intravenous, | | 18 11:59 | | | | | CONTINUOUS, Starting Thu12/18/17 | | AM PDT | | | | | at 0930, Pre-op | | | | | | + +---------+ +---+---+---+ +---------+ +---+-------+---+ | New Bag | 12/19/19 | | 100 | | | | 18 9:28 | | mL/hr | | | | AM PDT | | | | +---------+ +---+-------+---+ + +---+ | | | + +---+ | ondansetron (ZOFRAN ODT) | | | disintegrating tablet 4 mg 4 mg, | | | Oral, EVERY 6 HOURS PRN, Nausea, | | | Vomiting, Starting Thu12/18/17 at | | | 1223, First line agent, | | | Post-op/Phase II | | + +---+ | | | + +---+ | ondansetron (ZOFRAN) injection | | | 4 mg 4 mg, Intravenous, ONCE | | | PRN, Nausea, Starting Thu12/18/17 | | | at 1223, For 1 dose, | | | Recovery/Phase I | | + +---+ | | | + +---+ | ondansetron (ZOFRAN) injection | | | 4 mg 4 mg, Intravenous, EVERY 6 | | | HOURS PRN, Nausea, Vomiting, | | | Starting 12/18/17 at 1223, | | | First line agent. Use PO option | | | unless NPO status or unable to | | | tolerate., Post-op/Phase II | | + +---+ | | | + +---+ | promethazine (PHENERGAN) (IV | | | ONLY) injection 6.25 mg 6.25 mg, | | | Intravenous, EVERY 15 MIN PRN, | | | Nausea, Vomiting, Starting Fri | | | 12/18/17 at 1223, For 4 doses, | | | TAKE PRECAUTIONS WHEN | | | ADMINISTERING Dilute to 10-20mL | | | with NS. Give over 2-3 minutes | | | into large vein. Use ondansetron | | | first if both are ordered., | | | Recovery/Phase I | | + +---+ | | | + +---+ documented in this encounter
--- OUTSIDE RECORDS SUMMARY | ~2019-11-17 | XMS | Encounter Summary ---
Demographics + + + | Address | [address] | | | [place] [address] | + + + | Home Phone [...] Team Providers + +------+ + | Care Mechanic Senior Name | Role | Phone | + +------+ + | Petrona Thapa | PCP | | | MD | | | + +------+ + Reason for Visit +---------+ + | Reason | Comments | +---------+ + | Results | | +---------+ + Encounter Details +--------+ + + + + | Date | Type | Department | Care Team | Description | +--------+ + + + + | 02/18/ | Telephone | [facility] | Alanis, | Results | | 2018 | | MEDICINE [address] | MD Petrona | | | | | [facility] | [address] [facility] | | | | | [place] [address] | [place] [address] | | | | | [phone] | [phone] | | | | | | | [...] | | 2019 | Visit | | [facility] [address] | | | | | | [address] [place] | | | | | | [place] [address] | | | | | | [phone] | | | | | | | | +--------+---------+ + + + | 12/20/ | Office | Otolaryngology | Ulysses Genao MD | | | 2019 | Visit | | [address] | | | | | | [address] [place], | | | | | | [place] [address] | | | | | | [phone] | | | | | | | | +--------+---------+ + + + | 02/15/ | Office | Internal Medicine | Alanis, | | | 2019 | Visit | | MD Petrona | | | | | | [address] | | | | | | [place] [address] | | | | | | [phone] | | | | | | | | +--------+---------+ + + + documented as of this encounter Visit Diagnoses Not on filedocumented in this encounter"
--- OUTSIDE RECORDS SUMMARY | ~2019-11-17 | XMS | Encounter Summary ---
Demographics + + + | Address | [address] | | | [place] [address] | + + + | Home Phone | | + + + | Preferred Language | Unknown | + + + | Marital Status | Single | + + + | Faith Affiliation | ADV | + + + | Race | White | + + + | Ethnic Group | Not or | + + + Author + + + | Author | [facility] | + + + | Organization | [facility] | + + + | Address | [...] Team Providers + +------+ + | Care Ecg Technician Name | Role | Phone | [...] + + + | Closed | | Gastroenterol | Diagnoses | | Gas Endo | | | | ogy | Iron | [place], | [address] | | | | | deficiency | MD Carlos | Sharmila Schilling | | | | | Procedures | [address] | [place] | | | | | CONSULT TO | [facility] | [address] | | | | | GI PROCEDURE | Rd | floor | | | | | UNIT: SM | [place], [place] | [place], [place] | | | | | BOWEL | [address] | [address] | | | | | CAPSULE | Phone: | Phone: | | | | | ENDOSCOPY | [phone] | [phone] | | | | | | | Fax: | | | | | | | [phone] | +--------+--------+ + + + + Consultation (Routine) +--------+--------+ + + + + | Status | Reason | Specialty | Diagnoses / | Referred By | Referred To | | | | | Procedures | Contact | Contact | +--------+--------+ + + + + | Closed | | Pain | Diagnoses | | Miracle, | | | | Management | Chronic | [place], | NIHARIKA Jean | | | | | abdominal | MD Carlos | [address] | | | | | pain | [address] | [address] | | | | | Procedures | [facility] | [place], [place] | | | | | CONSULT TO | Rd | [address] | | | | | PAIN CENTER | [place], [place] | | | | | | | [address] | | | | | | | Phone: | | | | | | | [phone] | | +--------+--------+ + + + + Encounter Details +--------+---------+ + + + | Date | Type | Department | Care Team | Description | +--------+---------+ + + + | 04/07/ | Office | [facility] Division of | Carlos Arreola, | Iron Deficiency; | | 2005 | Visit | Gastroenterology/Hep | [address] | Chronic Abdominal | | | | atology [address] | [facility] | Pain | | | | [address] | [place] [address] | | | | | Mailcode: [id number] | [phone] | | | | | [facility] | | | | | | [address] | | | | | | [place], [place] | | | | | | [address] | | | | | | [phone] | | | +--------+---------+ + + + [...] + + + | Blood Pressure | 118/74 | 04/07/2006 3:13 PM | | | | | PDT | | + + + + + | Pulse | 68 | 04/07/2006 3:13 PM | | | | | PDT | | + + + + + | Temperature | 36.9 C (98.4 F) | 04/07/2006 3:13 PM | | | | | PDT | | + + + + + | Respiratory Rate | 12 | 04/07/2006 3:13 PM | | | | | PDT | | + + + + + | Oxygen Saturation | - | - | | + + + + + | Inhaled Oxygen | - | - | | | Concentration | | | | + + + + + | Weight | 86.6 kg (191 lb) | 04/07/2006 3:13 PM | | | | | PDT | | + + + + + | Height | - | - | | + + + + + | Body Mass Index | 34.93 | 01/22/2006 2:47 PM | | | | | PDT | | + + + + + documented in this encounter Progress Notes Carlos Arreola - 04/24/2006 7:[address] received from OSH from 01/15/06 and 03/19/06 CT Scan abdomen. Unremarkable findings (pasted below). Also, UGI series from December reviewed and normal (past ed below). [facility] [place] and reviewed: neg O&P UPPER GI, 01/01/06 CLINICAL HISTORY: Intermittent abdominal pain; history of gastric bypass surgery with subsequent complication of adhesions and a second surgery for lysis of same. COMPARISON: None. FINDINGS: A standard double contrast exam was attempted, with limited success. Air passed rapidly from the small residual stomach into the small bowel. A single contrast study was subsequently performed. The patient initiated and completed swallowing of contrast without difficulty. The anatomy of the dary- and hypopharynx is unremarkable. Contrast moved readily through the esophagus with normal peristaltic activity, demonstrating no fixed contour or mucosal abnormalities. The gastroesophageal junction is normal in caliber. A trace of gastroesophageal reflux was observed during the exam. The anastomotic site between the small bowel and the remainder of the stomach is unremarkable. There was no delay in transit of contrast from the stomach into the small bowel, and transit time through the proximal and midportions of the small bowel was normal to slightly rapid. CT ABDOMEN AND PELVIS, 01/15/06 HISTORY: Elevated liver function tests, abdominal pain. TECHNIQUE: Following oral contrast, 7.5 mm slices were carried through the liver. After IV contrast, 7.5 mm slices were carried through liver during the arterial phase, and through the abdomen and pelvis during the venous phase. Delayed images were made through the liver and kidneys. CT ABDOMEN FINDINGS: The incidental images of the lower chest show minimal pleural thickening of the lung bases. The liver is normal in size and density. A 5 mm low density lesion is in the medial aspect of the right hepatic lobe, which fills in on the delayed images, and is unchanged from the prior study. This is felt to represent a tiny hemangioma. No other liver lesions are seen and there are no findings here to suggest a cause of this patient's elevated liver function tests. Tiny lymph nodes adjacent to the ct hepatis and IVC are unchanged. The gallbladder is absent. There are surgical changes in the epigastrium and stomach region. The spleen, pancreas, adrenal glands and left kidney appear normal. Other than a 2 cm simple cyst, the right kidney is unremarkable. CT PELVIS FINDINGS: The urinary bladder and gastrointestinal structures appear normal. The uterus is absent. Neither ovary is visualized. No free fluid is seen. Degenerative changes are in the low lumbar spine. Mild atherosclerotic calcification involves the distal aorta and iliac arteries. IMPRESSION: NO FINDINGS TO SUGGEST A CAUSE OF THIS PATIENT'S ELEVATED LIVER FUNCTION TESTS AND ABDOMINAL PAIN. THERE HAS BEEN A CHOLECYSTECTOMY, HYSTERECTOMY, AND GASTRIC BYPASS. A SIMPLE CYST IN THE RIGHT KIDNEY IS AGAIN NOTED, ASSOCIATED WITH A PUNCTATE NON-OBSTRUCTING CALCIFICATION. THERE IS EARLY ATHEROSCLEROTIC DISEASE. NO CHANGE IN THE TINY CT HEPATIS NODES. Transcribed By: Armaan Rivera : [id number] : 1224 Approved By: CT ABDOMEN AND PELVIS, 01/15/06 HISTORY: Elevated liver function tests, abdominal pain. TECHNIQUE: Following oral contrast, 7.5 mm slices were carried through the liver. After IV contrast, 7.5 mm slices were carried through liver during the arterial phase, and through the abdomen and pelvis during the venous phase. Delayed images were made through the liver and kidneys. CT ABDOMEN FINDINGS: The incidental images of the lower chest show minimal pleural thickening of the lung bases. The liver is normal in size and density. A 5 mm low density lesion is in the medial aspect of the right hepatic lobe, which fills in on the delayed images, and is unchanged from the prior study. This is felt to represent a tiny hemangioma. No other liver lesions are seen and there are no findings here to suggest a cause of this patient's elevated liver function tests. Tiny lymph nodes adjacent to the ct hepatis and IVC are unchanged. The gallbladder is absent. There are surgical changes in the epigastrium and stomach region. The spleen, pancreas, adrenal glands and left kidney appear normal. Other than a 2 cm simple cyst, the right kidney is unremarkable. CT PELVIS FINDINGS: The urinary bladder and gastrointestinal structures appear normal. The uterus is absent. Neither ovary is visualized. No free fluid is seen. Degenerative changes are in the low lumbar spine. Mild atherosclerotic calcification involves the distal aorta and iliac arteries. IMPRESSION: NO FINDINGS TO SUGGEST A CAUSE OF THIS PATIENT'S ELEVATED LIVER FUNCTION TESTS AND ABDOMINAL PAIN. THERE HAS BEEN A CHOLECYSTECTOMY, HYSTERECTOMY, AND GASTRIC BYPASS. A SIMPLE CYST IN THE RIGHT KIDNEY IS AGAIN NOTED, ASSOCIATED WITH A PUNCTATE NON-OBSTRUCTING CALCIFICATION. THERE IS EARLY ATHEROSCLEROTIC DISEASE. NO CHANGE IN THE TINY CT HEPATIS NODES. Transcribed By: Armaan Mata : [id number] : 1224 Approved By: Carlos Benton - 3:59 PM PDTPt seen previously seen by nj for chronic pain and KP, returns to revie w endoscopy results. Biopsies obtained all normal, no marginal ulcers or other mucosal path ology. Pt tired of 'living on oxycodone'. Pt still taking iron. most recent ferritin 37 (was 11). No overy GI blood loss. Exam: vs as above no exam Imp: PK Chronic Pain in setting of letitia-en-y bypass and large amt of weight loss. See prior note of mine for details and long DDx, most of which has been ruled out. Plan: will proceed with small bowel capsule endoscopy and pain center referral. for capsule, we will need to deliver to small bowel given her pouch. suggested trial off aspirin after d/w PCP for one month documented in this encounter Plan of Treatment Not on filedocumented as of this encounter Visit Diagnoses + + | Diagnosis | + + | Iron deficiency Other disorders of iron metabolism | + + | Chronic abdominal pain Abdominal pain, unspecified site | + + documented in this encounter"
--- OUTSIDE RECORDS SUMMARY | ~2019-11-17 | XMS | Encounter Summary ---
Demographics + + + | Address | [address] | | | [place] [address] | + + + | Home Phone | | + + + | Preferred Language | Unknown | + + + | Marital Status | Single | + + + | Mandaeism Affiliation | ADV | + + + | Race | White | + + + | Ethnic Group | Not or | + + + Author + + + | Author | [facility] | + + + | Organization | [facility] | + + + | [...] Team Providers + +------+ + | Care Mail List Processor Name | Role | Phone | + [...] | +--------+ + + + + | 03/03/ | Telephone | Kraig Turner | Beto Meeks MD | Lab Results | | 2007 | | [facility] | [address] | | | | | [facility] | [place], [place] | | | | | [address] | [address] | | | | | [address] | [phone] | | | | | [facility] | | | | | | Physician's | | | | | | Pavilion [place], | | | | | | [place] [address] | | | | | | [phone] | | | +--------+ + + + [...]
--- OUTSIDE RECORDS SUMMARY | ~2019-11-17 | XMS | Encounter Summary ---
Demographics + + + | Address | [address] | | | [place] [address] | + + + | Home Phone | | + + + | Preferred Language | Unknown | + + + | Marital Status | Single | + + + | Nondenominational Affiliation | ADV | + + + | Race | White | + + + | Ethnic Group | Not or | + + + Author + + + | Author | [facility] | + + + | Organization | [facility] | + + + | [...] Team Providers + +------+ + | Care Tailor Women'S Garment Alteration Name | Role | Phone | + +------+ + | Pedrito Gutierrez MD | PCP | | + +------+ + Encounter Details +--------+ + + + + | Date | Type | Department | Care Team | Description | +--------+ + + + + | 01/11/ | Telephone | Digestive Health | Chris Padgett, | | | 2009 | | [place] [address] | [address] [facility] | | | | | Beth[place] Mailcode: CH4S | [facility] | | | | | Center for [facility] | [place], [place] | | | | | and Healing, | [address] | | | | | Building | [phone] | | | | | Floor [place], [place] | | | | | | [address] | | | | | | [phone] | | | +--------+ + + + [...]
--- OUTSIDE RECORDS SUMMARY | ~2019-11-17 | XMS | Encounter Summary ---
Demographics + + + | Address | [address] | | | [place] [address] | + + + | Home Phone | | + + + | Preferred Language | Unknown | + + + | Marital Status | Single | + + + | Sabianist Affiliation | ADV | + + + [...] Team Providers + +------+ + | Care Furnace Packer Name | Role | Phone | + +------+ + PCP | Unavailable | + +------+ + Encounter Details +--------+ + + + + | Date | Type | Department | Care Team | Description | +--------+ + + + + | 05/31/ | Results | Endocrinology, | Beto Meeks MD | | | 2001 | Only | Diabetes and | [address] | | | | | Clinical Nutrition | [place], [place] | | | | | [address] | [address] | | | | | Loop Mailcode: OPC5 | [phone] | | | | | Outpatient Clinic | | | | | | [facility] | | | | | | [place] [address] | | | | | | [phone] | | | +--------+ + + + [...] + | COMPLETE METABOLIC | Routin | 05/31/2002 | | Results for this | | SET | e | 3:21 PM | | procedure are in the | | (NA,K,CL,CO2,BUN,CRE | | PST | | results section. | | AT,GLUC,CA,AST,ALT,B | | | | | | DEYA TOTAL,ALK | | | | | | PHOS,ALB,PROT TOTAL) | | | | | + +--------+ + + + | ALDOLASE, SERUM | Routin | 05/31/2002 | | Results for this | | | e | 3:21 PM | | procedure are in the | | | | PST | | results section. | + +--------+ + + + | HEMOGLOBIN A1C, | Routin | 05/31/2002 | | Results for this | | BLOOD | e | 3:21 PM | | procedure are in the | | | | PST | | results section. | + +--------+ + + + | CK, PLASMA | Routin | 05/31/2002 | | Results for this | | | e | 3:21 PM | | procedure are in the | | | | PST | | results section. | + +--------+ + + + documented in this encounter Results ALDOLASE, SERUM, REF (05/31/2002 3:21 PM PST) + + + + + + | Component | Value | Ref Range | Performed | Pathologist | | | | | At | Signature | + + + + + + | ALDOLASE | 7.1Comment: This | 1.5 - 8.1 U/L | | | | SERUM | specimen is hemolyzed. | | | | | | The result for aldolase | | | | | | maybe increased. Test | | | | | | performed by [facility] | | | | | | Laboratories. | | | | + + + + + + + + | Specimen | + + | | + + + + + + + | Performing | Address | City/State/Zipcode | Phone Number | | Organization | | | | + + + + + | [facility] | [address] | [place], [place] | | | [facility] | | [address] | | + + + + + HEMOGLOBIN A1C (05/31/2002 3:21 PM PST) + + + + + + | Component | Value | Ref Range | Performed | Pathologist | | | | | At | Signature | + + + + + + | HEMOGLOBIN | 6.0Comment: Test | <7.1 % | | | | A1C | performed by [place] | | | | | | [facility] | | | | | | Laboratories. [...] | + + + + + | [facility] | [address] | [place] [address] | | | LABORATORY | | | | + + + + + COMP METABOLIC SET (05/31/2002 3:21 PM PST) + +---------+ + + + | Component | Value | Ref Range | Performed | Pathologist | | | | | At | Signature | + +---------+ + + + | GLUCOSE, | 111 (H) | 65 - 110 mg/dL | [facility] | | | PLASMA | | | DEPARTMENT | | | (LAB) | | | OF | | | | | | PATHOLOGY | | + +---------+ + + + | BUN, PLASMA | 12 | 6 - 20 mg/dL | [facility] [...] + +---------+ + + + | TOTAL | 6.6 | 6.1 - 7.9 g/dL | [facility] | | | PROTEIN, | | | DEPARTMENT | | | PLASMA | | | OF | | | (LAB) | | | PATHOLOGY | | + +---------+ + + + | ALBUMIN, | 3.7 | 3.5 - 4.7 g/dL | [facility] | | | PLASMA | | | DEPARTMENT | | | (LAB) | | | OF | | | | | | PATHOLOGY | | + +---------+ + + + | CALCIUM, | 9.6 | 8.5 - 10.5 | [facility] | | | PLASMA | | mg/dL | DEPARTMENT | | | (LAB) | | | OF | | | | | | PATHOLOGY | | + +---------+ + + + | BILIRUBIN | 0.6 | 0.3 - 1.2 mg/dL | [facility] | | | TOTAL | | | DEPARTMENT | | | | | | OF | | | | | | PATHOLOGY | | + +---------+ + + + | ALK PHOS | 75 | 42 - 98 U/L | [facility] | | | | | | DEPARTMENT | | | | | | OF | | | | | | PATHOLOGY | | + +---------+ + + + | AST(SGOT) | 34 | 15 - 41 U/L | [facility] | | | | | | DEPARTMENT | | | | | | OF | | | | | | PATHOLOGY | | + +---------+ + + + | SODIUM, | 141 | 136 - 145 | [facility] | | | PLASMA | | mmol/L | DEPARTMENT | | | (LAB) | | | OF | | | | | | PATHOLOGY | | + +---------+ + + + | POTASSIUM, | 4.5 | 3.5 - 5.1 | [facility] | | | PLASMA | | mmol/L | DEPARTMENT | | | (LAB) | | | OF | | | | | | PATHOLOGY | | + +---------+ + + + | CHLORIDE, | 101 | 98 - 107 mmol/L | [facility] | | | PLASMA | | | DEPARTMENT | | | (LAB) | | | OF | | | | | | PATHOLOGY | | + +---------+ + + + | TOTAL CO2, | 31 (H) | 23 - 29 mmol/L | [facility] | | | PLASMA | | | DEPARTMENT | | | (LAB) | | | OF | | | | | | PATHOLOGY | | + +---------+ + + + | ALT (SGPT) | 36 | 13 - 48 U/L | [facility] [...] | + + + + + | [facility] DEPARTMENT OF | [address] | [place] [address] | | | PATHOLOGY | [address] | | | + + + + + | [facility] DEPARTMENT OF | [address] | [place] [address] | | | PATHOLOGY | [address] | | | + + + + + CK (05/31/2002 3:21 PM PST) + +-------+ + + + | Component | Value | Ref Range | Performed | Pathologist | | | | | At | Signature | + +-------+ + + + | CK | 88 | 38 - 234 U/L | [facility] | | | | [...] | + + + + + | [facility] | [address] | [place] [address] | | | PATHOLOGY | [address] | | | + + + + + | [facility] | [address] [facility] [address] | [place] [address] | | | PATHOLOGY | [address] | | | + + + + + documented in this encounter Visit Diagnoses Not on filedocumented in this encounter"
--- OUTSIDE RECORDS SUMMARY | ~2019-11-17 | XMS | Encounter Summary ---
Demographics + + + | Address | [address] | | | [place] [address] | + + + | Home Phone | | + + + | Preferred Language | Unknown | + + + | Marital Status | | + + + | Shinto Affiliation | 1001 | + + + | Race | Unknown | + + + | Ethnic Group | Unknown | + + + Author + + + | Author | [facility] | | | and [place] | + + + | Organization | [facility] | | | [...] Providers + +------+ + | Care Line Walker Name | Role | Phone | + [...] | | | | | RE/Emmy | [place], [place] | [place], [place] | | | | | Procedures | [address] | [address] Phone: | | | | | [place] | Phone: | [phone] | | | | | SPONTANEOUS | [phone] | Fax: | | | | | [facility]STAG[facility]US | Fax: | [phone] | | | | | TEST OR | [phone] | | | | | | POSITIONAL | | | | | | | [facility]STAG[facility]US | | | | | | | TEST OR | | | | | | | CALORIC | | | | | | | VESTIBULAR | | | | | | | TEST OR | | | | | | | OPTOKINETIC | | | | | | | NYSTAGMUS | | | | | | | TEST OR | | | | | | | OSCILLATING | | | | | | | TRACKING | | | | | | | TEST OR | | | | | | | SUPPLEMENTAL | | | | | | | ELECTRICAL | | | | | | | TEST OR | | | | | | [...] + | 12/07/ | Office | [facility] | [place], [place] | Vertigo of central | | 2015 | Visit | AUDIOLOGY AND | [facility] [address] | origin, unspecified | | | | [facility] | [address] [facility] | laterality (Primary | | | | [address] | [place] [address] | Dx) | | | | [facility] | [phone] | | | | | [place] [address] | | | | | | [phone] | | | +--------+---------+ + + + [...] M.D. VNG testing revealed abnormal oculomotor subtests. Lusby De La Rosa pike revealed nystagmus when [...] | | | | | [place] [address] | | | | | | [phone] | | | | | | | | +--------+---------+ + + + | 12/20/ | Office | Otolaryngology | Ulysses Genao MD | | | 2019 | Visit | | [address] | | | | | | [address] [place], | | | | | | [place] [address] | | | | | | [phone] | | | | | | | | +--------+---------+ + + + | 02/15/ | Office | Internal Medicine | Alanis, | | | 2019 | Visit | | MD [place] | | | | | | [address] [place] | | | | | | [place] [address] | | | | | | [phone] | | | | | | | [...]
--- OUTSIDE RECORDS SUMMARY | ~2019-11-17 | XMS | Encounter Summary ---
Demographics + + + | Address | [address] | | | [place] [address] | + + + | Home Phone [...] Providers + +------+ + | Care Warehouse Delivery Manager Name | Role | Phone | + +------+ + | Petrona Thapa | PCP | | | MD | | | + +------+ + Reason for Visit + + + | Reason | Comments | + + + | Other | Medication Management. | + + + | Results | Bone Density | + + + | Leg Injury | Hit her right leg this morning, 10 pain level, feels heat coming | | | off of the swollen area | + + + Encounter Details +--------+---------+ + + + | Date | Type | Department | Care Team | Description | +--------+---------+ + + + | 09/15/ | Office | [facility] | Emmy-Tajti, | Pain in right lower | | 2019 | Visit | MEDICINE [address] | MD [place] | leg (Primary Dx); | | | | [address] [place] | [address] [facility] | Fall in bathtub, | | | | [place] [address] | [place] [address] | initial encounter; | | | | [phone] | [phone] | Other osteoporosis | | | | | | with current | | | | | | pathological | | | | | | fracture, initial | | | | | | encounter; B12 | | | | | | deficiency | +--------+---------+ + + + Social History [...] + + + | Blood Pressure | 114/78 | 09/15/2018 10:12 AM | | | | | PDT | | + + + + + | Pulse | 64 | 09/15/2018 10:12 AM | | | | | PDT | | + + + + + | Temperature | 36.7 C (98.1 F) | 09/15/2018 10:12 AM | | | | | PDT | | + + + + + | Respiratory Rate | 16 | 09/15/2018 10:12 AM | | | | | PDT | | + + + + + | Oxygen Saturation | 96% | 09/15/2018 10:12 AM | | | | | PDT | | + + + + + | Inhaled Oxygen | - | - | | | Concentration | | | | + + + + + | Weight | 91.2 kg (201 lb 1 | 09/15/2018 10:12 AM | | | | oz) | PDT | | + + + + + | Height | 172.7 cm (5' 8") | 09/15/2018 10:12 AM | | | | | PDT | | + + + + + | Body Mass Index | 30.57 | 09/15/2018 10:12 AM | | | | | PDT | | + + + + + documented in this encounter Progress Notes Maggie Montoya LPN - 09/15/2018 10:30 AM PDT Administrations This Visit cyanocobalamin (VITAMIN B-12) injection 1,000 mcg Admin Date 09/15/2018 Action Given Dose 1000 mcg Route Intramuscular Administered By Maggie Montoya LPN Vitamin B12 1000mcg given IM left deltoid. Patient tolerated injection well. Sulaiman Johnston MD - 09/15/2018 10:30 AM PDTFormatting of this note might be different from the origi nal. CHIEF COMPLAINT Chief Complaint Patient presents with Other Medication Management. Results Bone Density Leg Injury Hit her right leg this morning, 10 pain level, feels heat coming off of the swollen area HPI Belinda Meehan is a 58 y.o. y/o female who presents today for several issues: She states she had a slip and fall incident this morning in the bathtub and her apartment. She landed on her right lower leg which is very painful. She can put some pressure on it b ut it hurts below the knee and there is a swelling in the area. She is already on pain medi cations throughout pain clinic in her state for her chronic pain in the back and other joint s. She states her house has been evaluated in the past and adjustments were made for full prev entions including handlebars in her bathtub. She thinks the fall today could've been preven holly if she were more careful and waited for the top to be dry before she went in. Has history of osteoporosis and has been on Reclast for last couple of years. Bone density test done recently shows osteopenia in her hip, normal density in her lumbar area, and oste oporosis in her wrists. She has history of B12 deficiency and would like to have a B12 shot today. REVIEW OF SYSTEMS See HPI for further [...] Common migraine COPD (chronic obstructive pulmonary disease) ([facility]) Depression Diarrhea Dumping syndrome Fall at home Fatigue fracture of vertebra Fibromyalgia Full dentures GERD (gastroesophageal reflux disease) Glaucoma Hyperparathyroidism ([facility]) Hypothyroidism IBS (irritable bowel syndrome) Idiopathic scoliosis Leg edema Low back pain Lumbar postlaminectomy syndrome Lumbar radiculopathy primarily right 01/04/2015 Meniere syndrome Migraine with aura Migraines Muscle cramping Muscle spasm Myalgia Nausea Nonalcoholic hepatosteatosis Obesity Opioid dependence ([facility]) Orthostatic hypotension OLIVER (obstructive sleep apnea) Osteoarthritis, generalized Osteopenia Osteoporosis Palpitations Peripheral neuropathy Rheumatoid arthritis ([facility]) Right arm pain 01/04/2015 RLS (restless legs syndrome) S/P lumbar fusion 01/04/2015 Scoliosis Sleep apnea Spondylosis with myelopathy, lumbar region Stroke ([facility]) Syncope Tremor Type II or unspecified type [...] Renal failure Son SOCIAL HISTORY Social History Social History [...] Procedure: COLONOSCOPY; Surgeon: Luther Brito MD; Location: [facility] MEDICAL PROCEDURE UNIT DILATION AND CURETTAGE OF UTERUS ELBOW SURGERY FINGER TRIGGER RELEASE 2002 FINGER TRIGGER RELEASE 2009 GASTRIC BYPASS SURGERY 2004 HYSTERECTOMY 05/14/1980 JOINT REPLACEMENT Bilateral 2007 2008 KNEE ARTHROSCOPY 2005 LAPAROSCOPY 01/27/2015 LAPAROTOMY 2008 ROTATOR CUFF REPAIR 2005 SPINE SURGERY TONSILLECTOMY 1964 UPPER GASTROINTESTINAL ENDOSCOPY N/A 12/18/2017 Procedure: EGD; Surgeon: Luther Brito MD; Location: [facility] MEDICAL PROCEDURE UNIT CURRENT MEDICATIONS Current Outpatient Prescriptions Medication Sig Dispense Refill albuterol 90 mcg/puff inhaler Inhale 2 puffs into the lungs every 6 hours as needed for Wheezing, Shortness of Breath or Increased Work of Breathing (cough). 1 Inhaler 5 ascorbic acid (VITAMIN C) 500 mg tablet Take 500 mg by mouth Daily. Calcium Carbonate (CALTRATE 600 PO) TABS: 1 tablet by mouth four times a day (Patient taking differently: Take 2,000 mg by mouth Daily.) cholecalciferol (VITAMIN D-3) 5000 UNITS TABS Take 5,000 Units by mouth Daily. clobetasol (TEMOVATE) 0.05% cream apply topically to affected area twice a day 0 COMBIGAN 0.2-0.5 % ophthalmic solution 0 diphenoxylate-atropine (LOMOTIL) 2.5-0.025 mg per tablet Take 1 tablet by mouth 4 times daily. 120 tablet 0 fluticasone (FLONASE) 50 mcg/nasal spray 1 spray by Nasal route 2 times daily. 9.9 mL 5 furosemide (LASIX) 80 mg tablet take 1 tablet by mouth twice a day 180 tablet 2 gabapentin (NEURONTIN) 300 mg capsule Take 3 capsules by mouth 3 times daily. 270 capsu le 3 HYDROcodone-acetaminophen (NORCO) 10-325 mg per tablet Take 1 tablet by mouth every 6 h ours as needed for Pain. Incontinence Supplies MISC As directed 100 each 11 levothyroxine (SYNTHROID) 75 MCG tablet take 1 tablet by mouth every morning BEFORE KIERSTEN AKFAST 90 tablet 2 loperamide (IMODIUM) 2 mg capsule Take 2 capsules by mouth 3 times daily. 4 tablets AM 2 tablets PM 180 capsule 3 meclizine (ANTIVERT) 25 mg tablet take 1 tablet by mouth three times a day if needed fo r dizziness 90 tablet 0 methocarbamol (ROBAXIN) 750 mg tablet take 1 tablet by mouth twice a day 60 tablet 3 metoprolol tartrate (LOPRESSOR) 25 mg tablet take 1/2 tablet by mouth twice a day 30 ta blet 3 Multiple Vitamins-Minerals (COMPLETE WOMENS) TABS 1 tablet [...] by mouth twice a day 60 capsule 10 ondansetron (ZOFRAN ODT) 4 mg disintegrating tablet Take 1 tablet by mouth every 8 hour s as needed for Nausea. 270 tablet 2 potassium chloride (KLOR-CON M20) 20 mEq ER tablet take 3 tablets by mouth every mornin g and 2 every evening with food 450 tablet 1 sucralfate (CARAFATE) 1 g tablet take 1 tablet by mouth four times a day if needed 120 tablet 1 SUMAtriptan (IMITREX) 25 mg tablet Take 1 tab by mouth on on-set of Migraine, may repea t in 2 hours if needed. Max 2 tabs/ 24 hours 9 tablet 11 topiramate (TOPAMAX) 50 MG tablet take 2 tablets by mouth every 12 hours for MIGRAINE P REVENTION 228 tablet 5 torsemide (DEMADEX) 5 mg tablet take 1 tablet by mouth 5 TIMES A WEEK 25 tablet 5 travoprost (TRAVATAN Z) 0.004% ophthalmic solution 1 drop nightly. UNABLE TO FIND Gloves Use as directed 400 each 11 UNABLE TO FIND Air Mattress REHAN: 3 months. 1 each 5 zinc sulfate 220 mg capsule Take 1 capsule by mouth Daily. 30 capsule 1 zoledronic acid (RECLAST) 5 mg/100 mL SOLN Inject 5 mg into the vein once. YEARLY Current Facility-Administered Medications Medication Dose Route Frequency Provider Last Rate Last Dose cyanocobalamin (VITAMIN B-12) injection 1,000 mcg 1,000 mcg Intramuscular Q30 Days Morelia medinadamasoReese Thapa MD 1,000 mcg at 06/17/18 1132 ALLERGIES Allergies Allergen Reactions Ensure Diarrhea Food Diarrhea Lactose Codeine Sulfate Nausea Only Levofloxacin Hives, Itching and Rash Butalbital Ropinirole Amitriptyline Hcl Other (See Comments) Confused and questionable for seizures Efanltogyl-Icii-Ujigchxf Hives and Rash Cephalexin Hives Ciprofloxacin Hives and Rash Clarithromycin Hives and Rash Clindamycin Hcl Hives and Rash Doxycycline Rash Duloxetine Other (See Comments) Migraines and nausea Ketorolac Hives Levofloxacin Hives and Rash Morphine Swelling Penicillins Hives and Rash Ropinirole Hcl Hives Sulfamethoxazole-Trimethoprim Hives and Rash Tramadol Hcl Nausea Only PHYSICAL EXAM VITAL SIGNS: BP 114/78 | Pulse 64 | Temp 36.7 C (98.1 F) (Temporal) | Resp 16 | Ht 1.727 m (5' 8") | Wt 91.2 kg (201 lb 1 oz) | LMP (LMP Unknown) | SpO2 96% | Breastfeedi ng? No | BMI 30.57 kg/m Constitutional: Well developed, Well nourished, No acute distress, Pleasant female. HENT: Normocephalic, Atraumatic, Bilateral external ears normal, Oropharynx with no erythma , No oral exudates, Nose normal. Cardiovascular: Regular rate & rhythm, No murmurs, No rubs, No gallops. No lower extremitie s edema. Thorax & Lungs: Normal breath sounds, No respiratory distress, No wheezing, No rubs. Skin: Warm, Dry, No erythema, No rash. Musculoskeletal: Decreased range of motion in lower back. Pain in swelling in her right lo wer leg below knee on the medial aspect where she seems to have a soft tissue hematoma. No bone deformities or crepitation. Neurologic: Alert & oriented x 3. Psychiatric: Affect normal, Judgment normal, Mood normal. ASSESSMENT & PLAN 1. Pain in right lower leg - XR Tibia Fibula Right 2 Vw; Future 2. Fall in bathtub, initial encounter - Fall precautions discussed in detail today. Unfortunately she is frail and she is also t aking chronic pain medications in is at high risk for falls. 3. Other osteoporosis with current pathological fracture, initial encounter - Continue current regimen of vitamin D, calcium supplementation together with annual Recla st infusions. 4. B12 deficiency - B-12 shot today. FOLLOW-UP No Follow-up on file. Note: Parts of this documentwere created using Future[employer] speech recognition software. As a r esult, there may be unintended word spelling errors. Every attempt was made to correct the dictation. Lew colin in this encounter Plan of Treatment +--------+---------+ + + + | Date | Type | Specialty | Care Team | Description | +--------+---------+ + + + | 12/20/ | Office | Audiology | Elisabet Munson MS | | | 2019 | Visit | | [facility] [address] | | | | | [address] | | | | | | [place] [address] | | | | | | [phone] | | | | | | | | +--------+---------+ + + + | 12/20/ | Office | Otolaryngology | Ulysses Genao MD | | 2019 | Visit | | [address] [place] | | | | | | [address] [place], | | | | | | [place] [address] | | | | | | [phone] | | | | | | | | +--------+---------+ + + + | 02/15/ | Office | Internal Medicine | Alanis, | | | 2019 | Visit | | MD [place] | | | | | | [address] [place] | | | | | | [place] [address] | | | | | | [phone] | | | | | | | | +--------+---------+ + + + documented as of this encounter Results XR Tibia Fibula Right 2 Vw (09/15/2018 11:41 AM PDT) + + | Specimen | + + | | + + + + + | Narrative | Performed At | + + + | CLINICAL INFORMATION: R lower leg pain after falling in bath tub | [facility] | | this am. COMPARISON: None available. FINDINGS: 4 views of | | | the right tibia/fibula. Total knee arthroplasty changes without | | | evidence of hardware convocation. The mortise joint appears well | | | preserved. Diffuse subcutaneous soft tissue edema. No acute | | | fracture or dislocation. No periostitis or erosion. Distal | | | Achilles tendon mineralization/enthesophyte. Small heel spur. | | | IMPRESSION - No acute osseous abnormality. Diffuse subcutaneous soft | | | tissue swelling. Dictated and Signed by: Romeo John MD | | | Electronically signed: 09/15/2018 12:28 PM | | + + + + + | Procedure Note | + + | Ollie Neff Results In - 09/15/2018 12:31 PM PDT CLINICAL INFORMATION: R lower leg pain | | after falling in bath tub this am.COMPARISON: None available.FINDINGS: 4 views of the | | right tibia/fibula.Total knee arthroplasty changes without evidence of hardware | | convocation. Themortise joint appears well preserved.Diffuse subcutaneous soft tissue | | edema.No acute fracture or dislocation. No periostitis or erosion.Distal Achilles | | tendon mineralization/enthesophyte. Small heel spur.IMPRESSION - No acute osseous | | abnormality. Diffuse subcutaneous soft tissueswelling.Dictated and Signed by: Romeo | | MD Alvaro Electronically signed: 09/15/2018 12:28 PM | |mortise joint appears well preserved. | | | |Diffuse subcutaneous soft tissue edema. | | | |No acute fracture or dislocation. No periostitis or erosion. | | | |Distal Achilles tendon mineralization/enthesophyte. Small heel spur. | | | |IMPRESSION - No acute osseous abnormality. Diffuse subcutaneous soft tissue | |swelling. | | | |Dictated and Signed by: Romeo John MD | | Electronically signed: 09/15/2018 12:28 PM | + + + +---------+ + + | Performing | Address | City/State/Zipcode | Phone Number | | Organization | | | | + +---------+ + + | [facility] | | | | + +---------+ + + documented in this encounter Visit Diagnoses + + | Diagnosis | + + | Pain in right lower leg - Primary | + + | Fall in bathtub, initial encounter | + + | Other osteoporosis with current pathological fracture, initial encounter | + + | B12 deficiency Other B-complex deficiencies | + + documented [...] | | | | First dose on [facility] 10/15/17 at 1215 | | | [...]
--- OUTSIDE RECORDS SUMMARY | ~2019-11-17 | XMS | Encounter Summary ---
Demographics + + + | Address | [address] | | | [place] [address] | + + + | Home Phone | | + + + | Preferred Language | Unknown | + + + | Marital Status | | + + + | Orthodox Affiliation | 1001 | + + + | Race | Unknown | + + + | Ethnic Group | Unknown | + + + Author + + + | Author | [facility] | | | and [place] | + + + | Organization | [facility] [...] Team Providers + +------+ + | Care Personnel Arbitrator Name | Role | Phone | + +------+ + | Petrona Thapa | PCP | | | MD | | | + +------+ + Reason for Visit + + + | Reason | Comments | + + + | Vomiting | | + + + Encounter Details +--------+ + + + + | Date | Type | Department | Care Team | Description | +--------+ + + + + | 03/05/ | Telephone | [facility] | Alanis, | Vomiting | | 2018 | | MEDICINE [address] [place] [address] | MD [place] | | | | | [facility] | [address] [place] [address] | | | | | [place] [address] | [place] [address] | | | | | [phone] | [phone] | | | | | | | [...] | [facility] [address] | | | | | | [address] | | | | | | [place] [address] | | | | | | [phone] | | | | | | | | +--------+---------+ + + + | 12/20/ | Office | Otolaryngology | Ulysses Genao MD | | | 2019 | Visit | | [address] [place] | | | | | | [address] [place], | | | | | | [place] [address] | | | | | | [phone] | | | | | | | | +--------+---------+ + + + | 02/15/ | Office | Internal Medicine | Alanis, | | | 2019 | Visit | | MD [place] | | | | | | [address] | | | | | | [place] [address] | | | | | | [phone] | | | | | | | | +--------+---------+ + + + documented as of this encounter Visit Diagnoses Not on filedocumented in this encounter"
--- OUTSIDE RECORDS SUMMARY | ~2019-11-17 | XMS | Encounter Summary ---
Demographics + + + | Address | [address] | | | [place] [address] | + + + | Home Phone [...] + + + | Author | [facility] | + + + | Organization | [facility] | + + + | [...] Team Providers + +------+ + | Care Forestry Faculty Member Name | Role | Phone | + +------+ + | Pedrito Gutierrez MD | PCP | | + +------+ + Encounter Details +--------+---------+ + + + | Date | Type | Department | Care Team | Description | +--------+---------+ + + + | 09/09/ | Office | Comprehensive Pain | Nathalia Arora | Neck Pain; | | 2006 | Visit | [facility] | [address] | Spondylosis with | | | | [address] | [address] [place], | Myelopathy, Lumbar | | | | [place]chal [place] Mailcode: | [place] [address] | Region; Herniated | | | | [facility] [place] [facility] | | Lumbar | | | | [facility], | | Intervertebral Disc | | | | | | L4-5; Fibromyalgia | | | | [place], [place] | | syndrome 729.1 | | | | [address] | | | | | | [phone] | | | +--------+---------+ + + + [...] documented as of this encounter Progress Notes Delfina Molina - 12/02/2006 11:30 AM PDTPhysical Therapy Medicare Authorization/Review Antonio more Note Date: December 02, 2006 Patient: Belinda J Shefali, [id number], 1960 I agree with the proposed Physical Therapy Treatment Plan. Provider: DELFINA MOLINA ANP Nathalia Garrett - 007 4:49 PM PDT Physical Therapy Medicare Progress Note Date: 09/09/2006 Belinda J Shefali [id number]. 1960 Start of Care: 06/23/2006 Referring Provider: Delfina Molina Primary Diagnosis: Encounter Diagnoses Code Name Primary? 723.1B Neck Pain 721.42 Spondylosis with Myelopathy, Lumbar Region 722.10H Herniated Lumbar Intervertebral Disc L4-5 729.1 Fibromyalgia syndrome 729.1 Referral Diagnosis: Encounter Diagnoses Code Name Primary? 723.1B Neck Pain 721.42 Spondylosis with Myelopathy, Lumbar Region 722.10H Herniated Lumbar Intervertebral Disc L4-5 729.1 Fibromyalgia syndrome 729.1 Date of Onset: 05/29/2006 Insurance: Medicare Number of used/authorized visits: 12/21 Medicare certification from: 08/13/2006 through 09/12/2006 Subjective: Reported lowback pain today 8/10 with walking and sitting; driving back to [place] 2 weeks ago, stopped at rest place and got out of care, falling onto B knees, getting better. Objective: Apparently patient's trip home 2 weeks ago was most likely related to her positi oning, ie B knees were hyperflexed for a prolonged time. She has not fallen since then, use s her lofstrand crutches consistently. Functionally, patient is walking 25 minutes at [facility] at least daily and tolerating it we ll. Patient is here today for treatment of lowback symptoms and has continued her HEP diligentl y which has helped her control her symptoms to a certain extent. Treatment: In supine hook lying position continued: 1. External obliques in conjunction with lower abdominals isometric X 10 reps; added in B shoulder F/E X 10 reps to fatigue. 2. Lower abdominals with B isometric hip ADD to fatigue 3. In hook lying position, continued with lower abdominals and B hip ABD to fatigue; then alternating hip ABD a few reps each side. Patient's exercise session was stopped as patient noted right lowback and hip pain that she attempted to stretch but this was provocative. Palpation revealed right PSIS and gluteus m aximus and piriformis spasm, so initiated myofascial release to this region X 15 minutes wit h good reduction in spasm, and patient continued the following stretches: 4. Single knee to chest and 2 piriformis stretches (hip flexion/add/internal rotation and ABD/external rotation), X 1 rep each side for each stretch with instruction to continue at h ome 3-5 reps each side for all stretches, holding 10-20 seconds. 50 minutes was spent on therapeutic exercise Assessment: Patient's symptoms reduced to 3-4/10 post treatment today; patient has achieved goal of walking X 25 minutes; and now wants to increase this to walking outside 45-60 minut es; also be able to prepare a meal using the barbecue. Plan: Patient has 2 f/u visits remaining, will progress in core stabilization regime to fac ilitate improving function. Treatment began: 1120 Treatment ended: 1210 Nathalia Arora, Physical Therapist License #[id number] documented in this encoun ter Plan of Treatment + + +--------+ + + | Name | Type | Priori | Associated Diagnoses | Order Schedule | | | | ty | | | + + +--------+ + + | FL MANUAL THER | Procedures | Routin | Neck Pain | Ordered: 09/09/2006 | | TECH,1+REGIONS,EA 15 | | e | Spondylosis with | | | MIN | | | Myelopathy, Lumbar | | | | | | Region Herniated | | | | | | Lumbar | | | | | | Intervertebral Disc | | | | | | L4-5 Fibromyalgia | | | | | | syndrome 729.1 | | + + +--------+ + + | [facility] THERAPEUTIC | Procedures | Routin | Neck Pain | Ordered: 09/09/2006 | | EXERCISES | | e | Spondylosis with | | | | | | Myelopathy, Lumbar | | | | | | Region Herniated | | | | | | Lumbar | | | | | | Intervertebral Disc | | | | | | L4-5 Fibromyalgia | | | | | | syndrome 729.1 | | + + +--------+ + + [...]
--- OUTSIDE RECORDS SUMMARY | ~2019-11-17 | XMS | Encounter Summary ---
Demographics + + + | Address | [address] | | | [place] [address] | + + + | Home Phone [...] + | Author | [facility] | | | and [place] | + + + | Organization | [facility] | | | and [...] Team Providers + +------+ + | Care Bean Sprout Grower Name | Role | Phone | [...] + + | Closed | | | Diagnoses | Dsouza, | OP ST | | | | | Vertigo of | Ulysses Lau MD | KEN | | | | | central | [address] | [facility] | | | | | origin, | [address] | [address] | | | | | unspecified | [place] | [address]VE | | | | | laterality | [place] | [place] | | | | | Procedures | [address] | [address] | | | | | MRI Brain w | Phone: | Phone: | | | | | wo Contrast | [phone] | [phone] | | | | | OR MRI | Fax: | Fax: | | | | | BRAIN COMBO | [phone] | [phone] | +--------+--------+ + + + + Reason for Visit + + + | Reason | Comments | + + + | Follow-up | dizzy,ringing in both ears,then patient falls because of being | | | dizzy | + + + Evaluate & Treat (Routine) +--------+--------+ + + + + | Status | Reason | Specialty | Diagnoses / | Referred By | Referred To | | | | | Procedures | Contact | Contact | +--------+--------+ + + + + | Closed | | Otolaryngolog | Diagnoses | | Ulysses Dsouza | | | | y | Fluid in | Emmy-Tajt | MD Sid [address] | | | | | ears/self/Fa | i, | [address] | | | | | milhoa | [place] | [address] | | | | | Medicare/Nik | MD [address] | [place], | | | | | escu | [address] | [place] [address] | | | | | Procedures | [place], | Phone: | | | | | OFFICE VISIT | [place] | [phone] | | | | | REGULAR | [address] | Fax: | | | | | | Phone: | [phone] | | | | | | [phone] | | | | | | | Fax: | | | | | | | [phone] | | +--------+--------+ + + + + Encounter Details +--------+---------+ + + + | Date | Type | Department | Care Team | Description | +--------+---------+ + + + | 10/18/ | Office | [facility] | Ulysses Dsouza MD | Vertigo of augusta | | 2015 | Visit | OTOLARYNGOLOGY [address] | [address] | origin, unspecified | | | | [address] | [address] [place], | laterality (Primary | | | | [place], [place] | [place] [address] | Dx) | | | | [address] | [phone] | | | | | [phone] | | | +--------+---------+ + + + Social History + + + +--------+------+ | Tobacco Use | Types | Packs/Day | Years | Date | | | | | Used | | + + + +--------+------+ | Former Smoker | Cigarettes | 0.5 | 30 | | + + + +--------+------+ + +---+---+---+ | Smokeless Tobacco: | | [...] + + + | Blood Pressure | - | - | | + + + + + | Pulse | 65 | 10/18/2014 10:21 AM | | | | | PDT | | + + + + + | Temperature | - | - | | + + + + + | Respiratory Rate | - | - | | + + + + + | Oxygen Saturation | 98% | 10/18/2014 10:21 AM | | | | | PDT | | + + + + + | Inhaled Oxygen | - | - | | | Concentration | | | | + + + + + | Weight | 88.5 kg (195 lb) | 10/18/2014 10:21 AM | | | | | PDT | | + + + + + | Height | 172.7 cm (5' 8") | 10/18/2014 10:21 AM | | | | | PDT | | + + + + + | Body Mass Index | 29.65 | 10/18/2014 10:21 AM | | | | | PDT | | + + + + + documented in this encounter Progress Notes Ulysses Dsouza MD - 10/18/2014 10:50 AM PDT [facility] OTOLARYNGOLOGY [address] [facility] [address] OFFICE NOTE ULYSSES DSOUZA MD Patient: BELINDA MEEHAN Admitting: MR #: [id number] LOC: PT TYPE: Adm Date: 10/18/2014 : 1960 DATE OF VISIT: 10/18/2014 The patient comes in because of problems with her balance. She indicates that she gets a spinning-type sensation. When this occurs, often she falls down. She falls quite a number of times. She has bruises on her shoulder and her hip. Her jaw is sore from recurrent f alling. The patient indicates that she has been having problems with this probably for abo ut a year now. Occasionally, she feels like there is water in her ears. She denies that t hey are plugged up at the current time. No change in her hearing that she is aware of. Th e patient is now walking with an arm crutch because of the problem with falling down. She is having no problems as far as food going down normally. No change in her vocal function . She has had surgery and there is hardware in her back. She feels, though, that she is n ot having any weakness in her extremities. She thinks they are working okay. She feels i t is because she just loses her balance. She denies any headaches. No other complaints at the current time. PHYSICAL EXAMINATION: GENERAL: Shows a 54-year-old female patient who appears to be much older than stated age. She does not follow questioning very well. She tends to answer other questions rather th an the one being asked. HEENT: Skin of the face, nose, and ears: There is no mass or lesi ons present. Ear canals are open. The drums were clear. There is no middle ear effusion or abnormality noted. Nasal passages: No obstruction. No mass or lesion seen on either side. Floor of the mouth, buccal mucosa, hard palate, teeth, lips, gums are healthy. No mass seen in the oropharynx, and posterior pharyngeal wall is smooth. Tongue and soft palat e are smooth and move symmetrically. No weakness noted. No fasciculations of the tongue. NECK: There are no masses or lymphadenopathy. Thyroid gland was smooth. Trachea is midl ine. The patient walks with a bit of wide gait with the use of her arm crutch. The patient's tympanograms were normal. Her hearing is normal at 15 dB bilaterally. Spee ch discriminations were both 100 percent. IMPRESSION: Vertigo of unknown origin at present. It is very disconcerting that the mehreen ent is falling down and causing injuries to herself. It is very unlikely that this would b e benign positional vertigo. It also would seem to be likely, both from the audiogram and her description, of being related to Meniere's disease. PLAN: The patient will be scheduled for a VNG, but also scheduled for an MRI scan of her head to be sure there is not a central process that is occurring that would describe better why she is having the difficulties. She will be seen once both of these tests have been completed. ULYSSES DSOUZA MD Dictated by ULYSSES DSOUZA MD 10/18/2014 10:50:30 Transcribed on 10/18/2014 11:06:48 by [facility] job# [id number] Confirmation #: [id number] signed by Ulysses Dsouza MD at 10/18/2014 12:48 PM PDT Ulysses Dsouza MD - 10/18/2014 10:45 AM PDTSee dictation # [id number] signed by Ulysses Dsouza MD at 10/18/2014 10:51 AM PDTdocumented in th is encounter Plan of Treatment +--------+---------+ + + + | Date | Type | Specialty | Care Team | Description | +--------+---------+ + + + | 12/20/ | Office | Audiology | Elisabet Munson MS | | | 2019 | Visit | | [facility] [address] | | | | | | [address] [place] | | | | | | [place] [address] | | | | | | [phone] | | | | | | | | +--------+---------+ + + + | 12/20/ | Office | Otolaryngology | Ulysses Dsouza MD | | | 2019 | Visit | | [address] | | | | | | [address] [place], | | | | | | [place] [address] | | | | | | [phone] | | | | | | | | +--------+---------+ + + + | 02/15/ | Office | Internal Medicine | Alanis, | | | 2019 | Visit | | MD [place] | | | | | | [address] [place] | | | | | | [place] [address] | | | | | | [phone] | | | | | | | | +--------+---------+ + + + + +---------+--------+ + + | Name | Type | Priori | Associated Diagnoses | Order Schedule | | | | ty | | | + +---------+--------+ + + | MRI Brain w wo | Imaging | Routin | Vertigo of central | Expected: | | Contrast | | e | origin, unspecified | 10/18/2014, Expires: | | | | | laterality | 10/19/2015 | + +---------+--------+ + + documented as of this encounter Visit Diagnoses + + | Diagnosis | + + | Vertigo of central origin, unspecified laterality - Primary | + + documented in this encounter
--- OUTSIDE RECORDS SUMMARY | ~2019-11-17 | XMS | Encounter Summary ---
Demographics + + + | Address | [address] | | | [place] [address] | + + + | Home Phone [...] Author + + + | Author | [facility] | + + + | Organization | [facility] | + + + | Address [...] Team Providers + +------+ + | Care Planer Tailer Name | Role | Phone | + +------+ + | Maria Esther Cintron MD | PCP | | + +------+ + Reason for Visit + + + | Reason | Comments | + + + | Refill Request | actonel | + + + Encounter Details +--------+--------+ + + + | Date | Type | Department | Care Team | Description | +--------+--------+ + + + | 11/04/ | Refill | [facility] | Beto Meeks MD | Refill Request | | 2010 | | [facility] | [address] | (actonel) | | | | [facility] | [place], [place] | | | | | [address] | [address] | | | | | [address] | [phone] | | | | | [facility] | | | | | | Physician's | | | | | | Pavilion [place], | | | | | | [place] [address] | | | | | | [phone] | | | +--------+--------+ + + + [...]
--- OUTSIDE RECORDS SUMMARY | ~2019-11-17 | XMS | Encounter Summary ---
Demographics + + + | Address | [address] | | | [place] [address] | + + + | Home Phone | | + + + | Preferred Language | Unknown | + + + | Marital Status | | + + + | Restorationism Affiliation | 1001 | + + + [...] Team Providers + +------+ + | Care Filament Cutter Name | Role | Phone | [...] + + | 05/14/ | Telephone | [facility] | Alanis, | Referral | | 2017 | | MEDICINE [address] [place] [address] | [place] | | | | | [facility] | [address] [place] [address] | | | | | [place] [address] | [place] [address] | | | | | [phone] | [phone] | | | | | | | [...] | | 2019 | Visit | | [facility] [address] | | | | | | [address] [place] | | | | | | [place] [address] | | | | | | [phone] | | | | | | | | +--------+---------+ + + + | 12/20/ | Office | Otolaryngology | Ulysses Genao MD | | | 2019 | Visit | | [address] | | | | | | [address] [place], | | | | | | [place] [address] | | | | | | [phone] | | | | | | | | +--------+---------+ + + + | 02/15/ | Office | Internal Medicine | Alanis, | | | 2019 | Visit | | MD [place] | | | | | | [address] | | | | | | [place] [address] | | | | | | [phone] | | | | | | | | +--------+---------+ + + + documented as of this encounter Visit Diagnoses Not on filedocumented in this encounter"
--- OUTSIDE RECORDS SUMMARY | ~2019-11-17 | XMS | Encounter Summary ---
Demographics + + + | Address | [address] | | | [place] [address] | + + + | Home Phone | | + + + | Preferred Language | Unknown | + + + | Marital Status | Single | + + + | Mu-Ism Affiliation | ADV | + + + [...] Team Providers + +------+ + | Care Ship Loader Name | Role | Phone | + +------+ + PCP | Unavailable | + +------+ + Encounter Details +--------+ + + + + | Date | Type | Department | Care Team | Description | +--------+ + + + + | 05/09/ | H&P-Transcr | | Physical, History | Hstry & Physical | | 2002 | ibed | | & | | [...]
--- OUTSIDE RECORDS SUMMARY | ~2019-11-17 | XMS | Encounter Summary ---
Demographics + + + | Address | [address] | | | [place] [address] | + + + | Home Phone | | + + + | Preferred Language | Unknown | + + + | Marital Status | Single | + + + | Pentecostalism Affiliation | ADV | + + + [...] Team Providers + +------+ + | Care Boxcar Weigher Name | Role | Phone | + +------+ + | Sulaiman Carrera MD | PCP | | + +------+ + Encounter Details +--------+ + + + + | Date | Type | Department | Care Team | Description | +--------+ + + + + | 12/21/ | Inside | [facility] | Beto Meeks MD | | | 2013 | Referral | [address] | [address] | | | | Order | [address] [facility] | [place], [place] | | | | | [place], [facility] floor | [address] | | | | | [place], [place] | [phone] | | | | | [address] | | | | | | [phone] | | | +--------+ + + + [...] + | Diagnosis | + + | Type II or unspecified type diabetes mellitus with other specified manifestations, not | | stated as uncontrolled - Primary | + + | Unspecified hypothyroidism | + + | Unspecified essential hypertension | + + documented in this encounter"
--- OUTSIDE RECORDS SUMMARY | ~2019-11-17 | XMS | Encounter Summary ---
Demographics + + + | Address | [address] | | | [place] [address] | + + + | Home Phone | | + + + | Preferred Language | Unknown | + + + | Marital Status | Single | + + + | Christianity Affiliation | ADV | + + + [...] Team Providers + +------+ + | Care Nutritional Chemist Name | Role | Phone | + +------+ + | Pedrito Gutierrez MD | PCP | | + +------+ + Encounter Details +--------+ + + + + | Date | Type | Department | Care Team | Description | +--------+ + + + + | 07/01/ | Orders Only | [facility] | Chris Padgett, | Status Post | | 2007 | | [place] [address] | [address] [facility] | Bariatric Surgery | | | | Ave Mailcode: CH4S | [address] | (Primary Dx) | | | | [facility] | [place], [place] | | | | | and Healing, | [address] | | | | | Building [address] | [phone] | | | | | Floor [place], [place] | | | | | | [address] | | | | | | [phone] | | | +--------+ + + + [...] of this encounter Plan of Treatment + +------+--------+ + + | Name | Type | Priori | Associated Diagnoses | Order Schedule | | | | ty | | | + +------+--------+ + + | [facility] | Lab | Routin | Status Post | Ordered: 07/01/2007 | | VPUNCT | | e | Bariatric Surgery | | + +------+--------+ + + documented as of this encounter Procedures + +--------+ + + + | Procedure Name | Priori | Date/Time | Associated Diagnosis | Comments | | | ty | | | | + +--------+ + + + | VITAMIN D, | Routin | 07/01/2007 | Status Post | Results for this | | 25-HYDROXY, SERUM | e | 2:32 PM | Bariatric Surgery | procedure are in the | | | | PST | | results section. | + +--------+ + + + | COMPLETE METABOLIC | Routin | 07/01/2007 | Status Post | Results for this | | SET | e | 2:32 PM | Bariatric Surgery | procedure are in the | | (NA,K,CL,CO2,BUN,CRE | | PST | | results section. | | AT,GLUC,CA,AST,ALT,B | | | | | | DEYA TOTAL,ALK | | | | | | PHOS,ALB,PROT TOTAL) | | | | | + +--------+ + + + | CBC ONLY | Routin | 07/01/2007 | Status Post | Results for this | | | e | 2:32 PM | Bariatric Surgery | procedure are in the | | | | PST | | results section. | + +--------+ + + + | PTH, SERUM | Routin | 07/01/2007 | Status Post | Results for this | | | e | 2:32 PM | Bariatric Surgery | procedure are in the | | | | PST | | results section. | + +--------+ + + + | FOLATE, SERUM | Routin | 07/01/2007 | Status Post | Results for this | | | e | 2:32 PM | Bariatric Surgery | procedure are in the | | | | PST | | results section. | + +--------+ + + + | VITAMIN B-12 | Routin | 07/01/2007 | Status Post | Results for this | | | e | 2:32 PM | Bariatric Surgery | procedure are in the | | | | PST | | results section. | + +--------+ + + + documented in this encounter Results VITAMIN D, 25-HYDROXY (07/01/2007 2:32 PM PST) + + + + + + | Component | Value | Ref Range | Performed | Pathologist | | | | | At | Signature | + + + + + + | VITAMIN D | 47Comment: TEST | 20 - 57 ng/mL | | | | 25 HYDROXY | INFORMATION: VITAMIN D, | | | | | | 25-HYDROXYThis assay | | | | | | accurately quantifies | | | | | | the sum of vitamin | | | | | | D3,25-hydroxy and | | | | | | vitamin D2, | | | | | | 25-hydroxy.Deficiency: | | | | | | Less than 20 | | | | | | ng/mLInsufficiency: | | | | | | 20-29 ng/mLOptimum | | | | | | Level: 30-80 | | | | | | ng/mLPossible Toxicity: | | | | | | Greater than 80 | | | | | | ng/mLPerformed by [facility] | | | | | | [facility],[address] | | | | | | [place], [facility] [place] [address] | | | | | | [phone]. | | | | | | Sincere rosario | | | | | | MD Nikki - Lab. | | | | | | Director | | | | + + + + + + + + | Specimen | + + | | + + + + + + + | Performing | Address | City/State/Zipcode | Phone Number | | Organization | | | | + + + + + | [facility] | [address] | [place], [place] | | | [facility] | | [address] | | + + + + + PTH, SERUM (07/01/2007 2:32 PM PST) + + + + + + | Component | Value | Ref Range | Performed | Pathologist | | | | | At | Signature | + + + + + + | PTH, SERUM | 56.0Comment: Test | 15.0 - 75.0 | | | | | performed by Colin | pg/mL | | | | | Tk Terry. | | | | + + + + + + + + | Specimen | + + | | + + + + + + + | Performing | Address | City/State/Zipcode | Phone Number | | Organization | | | | + + + + + | [facility] | [address] | [place] [address] | | | LABORATORY | | | | + + + + + VITAMIN B-12, SERUM (07/01/2007 2:32 PM PST) + + + + + + | Component | Value | Ref Range | Performed | Pathologist | | | | | At | Signature | + + + + + + | VITAMIN | 1219 (H) | 180 - 914 pg/ml | | | | B12, SERUM | | | | | + + + + + + + + | Specimen | + + | | + + + + + | Narrative | Performed At | + + + | Reference Range change effective | | | 04/05/07 [facility] ([facility]) | | | [facility] [place] [address] | | | [place] [address] | | + + + + + + + + | Performing | Address | City/State/Zipcode | Phone Number | | Organization | | | | + + + + + | [facility] | [address] | [place] [address] | | | LABORATORY | | | | + + + + + FOLATE, SERUM (07/01/2007 2:32 PM PST) + +-------+ + + + | Component | Value | Ref Range | Performed | Pathologist | | | | | At | Signature | + +-------+ + + + | FOLATE,SERU | 18.8 | >2.9 ng/ml | | | | M | | | | | + +-------+ + + + + + | Specimen | + + | | + + + + + | Narrative | Performed At | + + + | Reference Range change effective | | | 04/05/07 RL ([facility]) | | | [facility] [place] [address] [address] [facility] | | | [place] [address] | | + + + + + + + + | Performing | Address | City/State/Zipcode | Phone Number | | Organization | | | | + + + + + | [facility] | [address] [facility] [facility] | [place] [address] | | | LABORATORY | | | | + + + + + COMP METABOLIC SET (07/01/2007 2:32 PM PST) + +---------+ + + + | Component | Value | Ref Range | Performed | Pathologist | | | | | At | Signature | + +---------+ + + + | GLUCOSE, | 89 | 60 - 99 mg/dL | [facility] [...] +---------+ + + + | CREATININE | 0.7 | 0.6 - 1.1 mg/dL | [facility] | | | PLASMA | | | DEPARTMENT | | | (LAB) | | | OF | | | | | | PATHOLOGY | | + +---------+ + + + | TOTAL | 7.0 | 6.1 - 7.9 g/dL | [facility] | | | PROTEIN, | | | DEPARTMENT | | | PLASMA | | | OF | | | (LAB) | | | PATHOLOGY | | + +---------+ + + + | ALBUMIN, | 3.2 (L) | 3.5 - 4.7 g/dL | [facility] | | | PLASMA | | | DEPARTMENT | | | (LAB) | | | OF | | | | | | PATHOLOGY | | + +---------+ + + + | CALCIUM, | 9.1 | 8.5 - 10.5 | [facility] | | | PLASMA | | mg/dL | DEPARTMENT | | | (LAB) | | | OF | | | | | | PATHOLOGY | | + +---------+ + + + | BILIRUBIN | 0.7 | 0.3 - 1.2 mg/dL | [facility] | | | TOTAL | | | DEPARTMENT | | | | | | OF | | | | | | PATHOLOGY | | + +---------+ + + + | ALK PHOS | 99 (H) | 42 - 98 U/L | [facility] | | | | | | DEPARTMENT | | | | | | OF | | | | | | PATHOLOGY | | + +---------+ + + + | AST(SGOT) | 26 [...] +---------+ + + + | CHLORIDE, | 105 | 98 - 107 mmol/L | [facility] | | | PLASMA | | | DEPARTMENT | | | (LAB) | | | OF | | | | | | PATHOLOGY | | + +---------+ + + + | TOTAL CO2, | 29 | 23 - 29 mmol/L | [facility] [...] Performed At | + + + | [id number] Estimated GFR > 60 mL/min/1.73 sq m if non- | [facility] | | [address] Estimated GFR > 60 mL/min/1.73 sq m if GFR | DEPARTMENT OF | | is estimated using the MDRD equation recommended by the National | PATHOLOGY | | Kidney Disease Education Program. Estimated GFR Interpretive | | | Information: <60 mL/min/1.73 sq m Chronic Kidney Disease <15 | | | mL/mon/1.73 sq m Kidney Failure Estimated GFR greater than | | | 60mL/min/1.73 is of limited clinical Value. The MDRD equation is | | | not valid in the following situations: - Patients under 18 years of | | | age - Severe malnutrition or obesity - Vegetarian diet - Rapidly | | | changing kidney function | | + + + + + + + + | Performing | Address | City/State/Zipcode | Phone Number | | Organization | | | | + + + + + | [facility] DEPARTMENT OF | [address] | [place] [address] | | | PATHOLOGY | [address] | | | + + + + + | [facility] DEPARTMENT | [address] | [place] [address] | | | PATHOLOGY | [address] | | | + + + + + CBC ONLY WITH PLATELET (07/01/2007 2:32 PM PST) + +-------+ + + + | Component | Value | Ref Range | Performed | Pathologist | | | | | At | Signature | + +-------+ + + + | WHITE CELL | 8.8 | 4.4 - 11.0 K/cu | [facility] | | | COUNT | | mm | DEPARTMENT | | | | | | OF | | | | | | PATHOLOGY | | + +-------+ + + + | RED CELL | 4.71 | 4.00 - 5.20 | [facility] | | | COUNT | | M/cu mm | DEPARTMENT | | | | | | OF | | | | | | PATHOLOGY | | + +-------+ + + + | HEMOGLOBIN | 14.5 | 12.0 - 16.0 | [facility] | | | | | g/dL | DEPARTMENT | | | | | | OF | | | | | | PATHOLOGY | | + +-------+ + + + | HEMATOCRIT | 41.8 | 36.0 - 46.0 % | [facility] | | | | | | DEPARTMENT | | | | | | OF | | | | | | PATHOLOGY | | + +-------+ + + + | MCV | 88.6 | 80.0 - 96.0 fL | [facility] | | | | | | DEPARTMENT | | | | | | OF | | | | | | PATHOLOGY | | + +-------+ + + + | MCHC | 34.7 | 33.4 - 35.5 | [facility] | | | | | g/dL | DEPARTMENT | | | | | | OF | | | | | | PATHOLOGY | | + +-------+ + + + | RDW | 12.4 | 11.5 - 15.0 % | [facility] | | | | | | DEPARTMENT | | | | | | OF | | | | | | PATHOLOGY | | + +-------+ + + + | PLATELET | 330 | 150 - 400 K/cu | [facility] [...] | + + + + + | [facility] | [address] | [place] [address] | | | PATHOLOGY | [address] | | | + + + + + | [facility] | [address] | [place] [address] | | | PATHOLOGY | [address] | | | + + + + + documented in this encounter Visit Diagnoses + + | Diagnosis | + + | Status post bariatric surgery - Primary Bariatric surgery status | + + documented in this encounter"
--- OUTSIDE RECORDS SUMMARY | ~2019-11-17 | XMS | Encounter Summary ---
Demographics + + + | Address | [address] | | | [place] [address] | + + + | Home Phone | | + + + | Preferred Language | Unknown | + + + | Marital Status | Single | + + + | Spiritism Affiliation | ADV | + + + | Race | White | + + + | Ethnic Group | Not or | + + + Author + + + | Author | [facility] | + + + | Organization | [facility] | + + + | Address [...] Team Providers + +------+ + | Care Top Cleaner Name | Role | Phone | + +------+ + | Pedrito Gutierrez MD | PCP | | + +------+ + Encounter Details +--------+ + + + + | Date | Type | Department | Care Team | Description | +--------+ + + + + | 01/11/ | Telephone | Dig[facility]ive Health | Chris Padgett, | | | 2009 | | [place] [address] | [address] [facility] | | | | | [place] Mailcode: CH4S | [facility] | | | | | [facility] | [place], [place] | | | | | and Healing, | [address] | | | | | Building | [phone] | | | | | Floor [place], [place] | | | | | | [address] | | | | | | [phone] | | | +--------+ + + + [...]
--- OUTSIDE RECORDS SUMMARY | ~2019-11-17 | XMS | Encounter Summary ---
Demographics + + + | Address | [address] | | | [place] [address] | + + + | Home Phone [...] Team Providers + +------+ + | Care Computer Analyst Name | Role | Phone | [...] + + | 06/17/ | Telephone | [facility] | Alanis, | Referral | | 2019 | | MEDICINE [address] [place] [address] | MD Petrona | | | | | [facility] | [address] [place] [address] | | | | | [place] [address] | [place] [address] | | | | | [phone] | [phone] | | | | | | | [...] | Visit | | [facility] [address] | | | | | | [address] [place] | | | | | | [place] [address] | | | | | | [phone] | | | | | | | | +--------+---------+ + + + | 12/20/ | Office | Otolaryngology | Ulysses Genao MD | | | 2019 | Visit | | [address] | | | | | | [address] [place], | | | | | | [place] [address] | | | | | | [phone] | | | | | | | | +--------+---------+ + + + | 02/15/ | Office | Internal Medicine | Alanis, | | | 2019 | Visit | | MD Petrona | | | | | | [address] [place] | | | | | | [place] [address] | | | | | | [phone] | | | | | | | | +--------+---------+ + + + documented as of this encounter Visit Diagnoses Not on filedocumented in this encounter"
--- OUTSIDE RECORDS SUMMARY | ~2019-11-17 | XMS | Encounter Summary ---
Demographics + + + | Address | [address] | | | [place] [address] | + + + | Home Phone | | + + + | Preferred Language | Unknown | + + + | Marital Status | | + + + | Rastafari Affiliation | 1001 | + + + [...] Team Providers + +------+ + | Care Counseling Center Director Name | Role | Phone | [...] + | 08/24/ | Telephone | [facility] | Alanis, | Toe Pain | | 2019 | | MEDICINE [address] [place] [address] | MD Petrona | | | | | [facility] | [address] [place] [address] | | | | | [place] [address] | [place] [address] | | | | | [phone] | [phone] | | | | | | | [...] | | 2019 | Visit | | [facility] [address] | | | | | | [address] [place] | | | | | | [place] [address] | | | | | | [phone] | | | | | | | | +--------+---------+ + + + | 12/20/ | Office | Otolaryngology | Ulysses Genao MD | | | 2019 | Visit | | [address] | | | | | | [address] [place], | | | | | | [place] [address] | | | | | | [phone] | | | | | | | | +--------+---------+ + + + | 02/15/ | Office | Internal Medicine | Alanis, | | | 2019 | Visit | | MD Petrona | | | | | | [address] [place] | | | | | | [place] [address] | | | | | | [phone] | | | | | | | [...]
--- OUTSIDE RECORDS SUMMARY | ~2019-11-17 | XMS | Encounter Summary ---
Demographics + + + | Address | [address] | | | [place] [address] | + + + | Home Phone | | + + + | Preferred Language | Unknown | + + + | Marital Status | Single | + + + | Gnosticism Affiliation | ADV | + + + [...] Team Providers + +------+ + | Care Abattoir Manager Name | Role | Phone | [...] Refill Request | | 2009 | | [place] [address] | [address] | (SUCRALFATE) | | | | [place] Mailcode: CH4S | [facility] | | | | | [facility] | [place], [place] | | | | | and Healing, | [address] | | | | | [facility] | [phone] | | | | | Floor [place], [place] | | | | | | [address] | | | | | | [phone] | | | +--------+--------+ + + + [...]
--- OUTSIDE RECORDS SUMMARY | ~2019-11-17 | XMS | Encounter Summary ---
Demographics + + + | Address | [address] | | | [place] [address] | + + + | Home Phone [...] + + | Author | [facility] | | | and [place] | + + + | Organization | [facility] | | | [...] Team Providers + +------+ + | Care Burr Picker Name | Role | Phone | + [...] Description | +--------+--------+ + + + | 11/22/ | Refill | [facility] | Alanis, | Medication Refill | | 2018 | | MEDICINE [address] [place] [address] | MD Petrona | | | | | [facility] | [address] [place] [address] | | | | | [place] [address] | [place] [address] | | | | | [phone] | [phone] | | | | | | | [...] | | | | | [place] [address] | | | | | | [phone] | | | | | | | | +--------+---------+ + + + | 12/20/ | Office | Otolaryngology | Ulysses Genao MD | | | 2019 | Visit | | [address] | | | | | | [address] [place], | | | | | | [place] [address] | | | | | | [phone] | | | | | | | | +--------+---------+ + + + | 02/15/ | Office | Internal Medicine | Alanis, | | | 2019 | Visit | | MD Petrona | | | | | | [address] [place] [address] [address] | | | | | | [place] [address] | | | | | | [phone] | | | | | | | | +--------+---------+ + + + documented as of this encounter Visit Diagnoses Not on filedocumented in this encounter"
--- OUTSIDE RECORDS SUMMARY | ~2019-11-17 | XMS | Encounter Summary ---
Demographics + + + | Address | [address] | | | [place] [address] | + + + | Home Phone | | + + + | Preferred Language | Unknown | + + + | Marital Status | Single | + + + | Methodist Affiliation | ADV | + + + [...] Providers + +------+ + | Care Front Maker Lockstitch Name | Role | Phone | [...] | +--------+ + + + + | 07/28/ | Telephone | [facility] | Chris Padgett, | Discussion | | 2007 | | Center [address] | [address] | | | | | [place] Mailcode: CH4S | Naeem Mcrae | | | | | [facility] | [place], [place] | | | | | and Healing, | [address] | | | | | [facility] | [phone] | | | | | Floor [place], [place] | | | | | | [address] | | | | | | [phone] | | | +--------+ + + + [...]
--- OUTSIDE RECORDS SUMMARY | ~2019-11-17 | XMS | Encounter Summary ---
Demographics + + + | Address | [address] | | | [place] [address] | + + + | Home Phone [...] Team Providers + +------+ + | Care Stone Polisher Machine Name | Role | Phone | + +------+ + | Petrona Thapa | PCP | | | MD | | | + +------+ + Reason for Visit + + + | Reason | Comments | + + + | Incontinence | | | Supplies | | + + + Encounter Details +--------+ + + + + | Date | Type | Department | Care Team | Description | +--------+ + + + + | 05/05/ | Telephone | [facility] | Emmy-Kamlesh, | Incontinence | | 2018 | | MEDICINE [address] [place] [address] | MD Petrona | Supplies | | | | [facility] | [address] [place] [address] | | | | | [place] [address] | [place] [address] | | | | | [phone] | [phone] | | | | | | | [...] | | 2019 | Visit | | [facility] [address] | | | | | | [address] [place] | | | | | | [place] [address] | | | | | | [phone] | | | | | | | | +--------+---------+ + + + | 12/20/ | Office | Otolaryngology | Ulysses Genao MD | | | 2019 | Visit | | [address] | | | | | | [address] [place], | | | | | | [place] [address] | | | | | | [phone] | | | | | | | | +--------+---------+ + + + | 02/15/ | Office | Internal Medicine | Alanis, | | | 2019 | Visit | | MD Petrona | | | | | | [address] | | | | | | [place] [address] | | | | | | [phone] | | | | | | | | +--------+---------+ + + + documented as of this encounter Visit Diagnoses + + | Diagnosis | + + | Mixed incontinence urge and stress (male)(female) - Primary | + + | Inflammatory bowel disease Other and unspecified noninfectious gastroenteritis and | | colitis | + + documented in this encounter"
--- OUTSIDE RECORDS SUMMARY | ~2019-11-17 | XMS | Encounter Summary ---
Demographics + + + | Address | [address] | | | [place] [address] | + + + | Home Phone [...] Team Providers + +------+ + | Care Chief Security Officer Name | Role | Phone | + +------+ + PCP | Unavailable | + +------+ + Encounter Details +--------+ + + + + | Date | Type | Department | Care Team | Description | +--------+ + + + + | 11/21/ | Orders Only | | Record, Operation | | | 2004 | | | | | +--------+ + [...] + + | OPERATION RECORD | | 11/22/2003 | | Results for this | | | | | | procedure are in the | | | | | | results section. | + +--------+ + + + documented in this encounter Results OPERATION RECORD (11/22/2003) + + | Transcriptions | + + | Interface, Gymnastics Coach In - 06/05/2005 5:20 AM PST Date: | | 11/22/2003Attending Surgeon: Chris Padgett M.D.Fermenting Cellar Dropper(s): | | Ramon Valentine M.D.Preoperative Diagnosis:Morbid obesity.Postoperative | | Diagnosis(es):Morbid obesity.Procedures Performed:1. Laparoscopic Zoe-en-Y gastric | | bypass.2. Laparoscopic lysis of adhesions.Anesthesia:General endotracheal | | anesthesia.Estimated Blood Loss:100 mL.Complications:None | | immediate.Specimens:None.Indications:This 43-year-old woman has morbid obesity. She is | | 5 feet 10 inches talland weighs 333 pounds. After discussion of all her options, she | | has chosento undergo gastric bypass.Findings:Prior lower anterior wall abdominal | | scarring secondary to her hysterectomyand oophorectomy with dense adhesions through the | | omentum on this whichwere lysed. The liver was large and appeared slightly infiltrated. | | Weconstructed a Zoe-en-Y gastric bypass with a 50-cm biliary limb and a150-cm Zoe | | limb which was brought up to antecolic and antegastric.Procedure:After informed consent | | had been obtained and perioperative antibiotics wereadministered, the patient was taken | | to the Operating Room, laid in supineposition, and general anesthesia was induced. Next, | | sequential compressiondevices were placed on her legs, a Baker catheter in her bladder, | | and abariatric orogastric tube in her stomach. The abdomen was prepped anddraped in | | the usual sterile manner. We established pneumoperitoneumthrough an umbilical stab | | incision, placed a camera port approximately 6 cmup from the umbilicus just to the right | | of the midline. After placing ourlaparoscope, cursory examination was as mentioned | | above. We placed a leftlateral abdominal 5-mm port and using this took down some middle | | lowerabdominal adhesions through the anterior abdominal wall to allow us toplace a | | lower working port which was 12 mm and was placed approximately 4cm to the right of the | | umbilicus. Once this was placed, we took down theremainder of the adhesions and placed | | our right subcostal port which wasalso 12 mm. We pulled back the omentum located at the | | ligament of Treitz,stepped off 50 cm from this, and then transected the bowel and | | themesentery with 2 firings of an Endo ANALI white load stapler. We had taggedthe distal | | transecting ends of bowel, stepped along this a further 150 cm,and at this point brought | | our proximal transected portion down and did waoqo-fv-krpv stapled jejunojejunostomy | | using a single firing blue load EndoGIA stapler. Resulting enterotomy was closed using | | a running 2-0 Vicrylwhich was also used to pledget the closure. We then divided our | | omentumdown to the colon, turned our attention to the upper abdomen area.Subxiphoid 5-mm | | port was placed, and through this a Nga retractor wasplaced in the abdominal | | cavity to plug up against the left lobe of theliver and held in place with a | | laparoscopic Bookwalter. We placed a leftsubcostal 12-mm working port around the nipple | | line. With these in place,we cleared off the angle of His. We inflated the bariatric | | orogastricballoon to 30 cm, and using this as a guide, created a 30 to 40 mL poucharound | | this using about 5 firings of the Endo ANALI blue load stapler. Henok brought our Zoe | | limb up to this antecolic and antegastric andperformed a krwk-bn-fsvd gastrojejunostomy | | after placing a posteriorinterrupted row of 2-0 Vicryl sutures. The gastroenterostomy | | was fashionedusing a single firing of the Endo ANALI blue load stapler, and the | | resultingenterotomy was closed over the orogastric tube using a running 2-0 | | Vicryl.Interrupted 2-0 Vicryls were then used to buttress the anterior wall ofthis | | closure. The anastomosis was tested with 100 mL of methylene blue,and there was no | | evidence of a leak. This was aspirated as the orogastrictube was removed from the | | stomach, and then our retractors and ports weresequentially withdrawn under direct | | visualization. As the patient hadhistory of gallstones, we examined the gallbladder and | | found there to be noevidence of acute inflammation and thus decided not to proceed with | | thecholecystectomy. Once the ports were withdrawn, the pneumoperitoneum wasevacuated. | | The incisions were washed, dried, and the skin was closed usingsubcuticular Vicryl | | suture. Steri-Strips and sterile dressing wereapplied. The patient was then awoken | | from anesthesia and transportedwithout complications to the PACU.Ramon Valentine | | Syed Padgett M.D.MOOKIE / [id number] / [id number] / [id number] / [id number]: 11/22/2003T: | | 11/22/2003 | |cm to the right of the umbilicus. Once this was placed, we took down the | |remainder of the adhesions and placed our right subcostal port which was | |also 12 mm. We pulled back the omentum located at the ligament of Treitz, | |stepped off 50 cm from this, and then transected the bowel and the | |mesentery with 2 firings of an Endo ANALI white load stapler. We had tagged | |the distal transecting ends of bowel, stepped along this a further 150 cm, | |and at this point brought our proximal transected portion down and did a | |oehf-eg-htwm stapled jejunojejunostomy using a single firing blue load Endo | |ANALI stapler. Resulting enterotomy was closed using a running 2-0 Vicryl | |which was also used to pledget the closure. We then divided our omentum | |down to the colon, turned our attention to the upper abdomen area. | |Subxiphoid 5-mm port was placed, and through this a Nga retractor was | |placed in the abdominal cavity to plug up against the left lobe of the | |liver and held in place with a laparoscopic Bookwalter. We placed a left | |subcostal 12-mm working port around the nipple line. With these in place, | |we cleared off the angle of His. We inflated the bariatric orogastric | |balloon to 30 cm, and using this as a guide, created a 30 to 40 mL pouch | |around this using about 5 firings of the Endo ANALI blue load stapler. We | |then brought our Zoe limb up to this antecolic and antegastric and | |performed a yhrd-xt-kyay gastrojejunostomy after placing a posterior | |interrupted row of 2-0 Vicryl sutures. The gastroenterostomy was fashioned | |using a single firing of the Endo ANALI blue load stapler, and the resulting | |enterotomy was closed over the orogastric tube using a running 2-0 Vicryl. | |Interrupted 2-0 Vicryls were then used to buttress the anterior wall of | |this closure. The anastomosis was tested with 100 mL of methylene blue, | |and there was no evidence of a leak. This was aspirated as the orogastric | |tube was removed from the stomach, and then our retractors and ports were | |sequentially withdrawn under direct visualization. As the patient had | |history of gallstones, we examined the gallbladder and found there to be no | |evidence of acute inflammation and thus decided not to proceed with the | |cholecystectomy. Once the ports were withdrawn, the pneumoperitoneum was | |evacuated. The incisions were washed, dried, and the skin was closed using | |subcuticular Vicryl suture. Steri-Strips and sterile dressing were | |applied. The patient was then awoken from anesthesia and transported | |without complications to the PACU. | | | | | | | | | |Ramon Valentine M.D. | | | | | | | |Chris Padgett M.D. | | | |MOOKIE / SHARIF | |[id number] / [id number] / [id number] / [id number] | | | | | + + documented in this encounter Visit Diagnoses Not on filedocumented in this encounter"
--- OUTSIDE RECORDS SUMMARY | ~2019-11-17 | XMS | Encounter Summary ---
Demographics + + + | Address | [address] | | | [place] [address] | + + + | Home Phone [...] Team Providers + +------+ + | Care Laboratory Animal Facility Supervisor Name | Role | Phone | + +------+ + | Pedrito Gutierrez MD | PCP | | + +------+ + Encounter Details +--------+ + + + + | Date | Type | Department | Care Team | Description | +--------+ + + + + | 05/12/ | Procedure - | | Endoscopy, Gi | Various: EGD | | 2005 | | | | (esophag,SB CAPSULE | | | Transcribed | | | E | +--------+ + + + + Social [...] + + + | EGD | | 05/12/2006 | | | + +--------+ + + + | [facility], | | 05/12/2006 | | | | INTRALUMINAL | | | | | + +--------+ + + + documented in this encounter Visit Diagnoses Not on filedocumented in this encounter"
--- OUTSIDE RECORDS SUMMARY | ~2019-11-17 | XMS | Encounter Summary ---
Demographics + + + | Address | [address] | | | [place] [address] | + + + | Home Phone | | + + + | Preferred Language | Unknown | + + + | Marital Status | Single | + + + | Pentecostal Affiliation | ADV | + + + [...] Team Providers + +------+ + | Care Naval Special Warfare Medic Name | Role | Phone | + +------+ + | Pedrito Gutierrez MD | PCP | | + +------+ + Reason for Visit + + + | Reason | Comments | + + + | Erroneous Encounter | | | - Disregard | | + + + Encounter Details +--------+ + + + + | Date | Type | Department | Care Team | Description | +--------+ + + + + | 10/03/ | Telephone | [facility] | Miranda Lambert, | Erroneous Encounter | | 2009 | | [facility] Center at | ANP | - Disregard | | | | [facility][Note 2] | | | | | | [address] | | | | | | Mailcode: CH15P | | | | | | [facility] | | | | | | and Healing, | | | | | | Building | | | | | | Floor [place], [place] | | | | | | [address] | | | | | | [phone] | | | +--------+ + + + [...]
--- OUTSIDE RECORDS SUMMARY | ~2019-11-17 | XMS | Encounter Summary ---
Demographics + + + | Address | [address] | | | [place] [address] | + + + | Home Phone [...] Team Providers + +------+ + | Care Toolroom Keeper Name | Role | Phone | + [...] + + | 09/13/ | Telephone | [facility] | Alanis, | Appointment | | 2019 | | MEDICINE [address] [place] [address] | MD Petrona | | | | | [facility] | [address] [place] [address] | | | | | [place] [address] | [place] [address] | | | | | [phone] | [phone] | | | | | | | [...] | | 2019 | Visit | | [facility] [address] | | | | | | [address] [place] | | | | | | [place] [address] | | | | | | [phone] | | | | | | | | +--------+---------+ + + + | 12/20/ | Office | Otolaryngology | Ulysses Genao MD | | | 2020 | Visit | | [address] | | | | | | [address] [place], | | | | | | [place] [address] | | | | | | [phone] | | | | | | | | +--------+---------+ + + + | 02/15/ | Office | Internal Medicine | Alanis, | | | 2019 | Visit | | MD Petrona | | | | | | [address] | | | | | | [place] [address] | | | | | | [phone] | | | | | | | | +--------+---------+ + + + documented as of this encounter Visit Diagnoses Not on filedocumented in this encounter"
--- OUTSIDE RECORDS SUMMARY | ~2019-11-17 | XMS | Encounter Summary ---
Demographics + + + | Address | [address] | | | [place] [address] | + + + | Home Phone | | + + + | Preferred Language | Unknown | + + + | Marital Status | | + + + | Caodaism Affiliation | 1001 | + + + | Race | Unknown | + + + | Ethnic Group | Unknown | + + + Author + + + | Author | [facility] | | | and [place] | + + + | Organization | [facility] | | | and [...] Team Providers + +------+ + | Care Binder Sorter Name | Role | Phone | + [...] + + | 07/01/ | Telephone | [facility] | Alanis, | Foot Pain | | 2018 | | MEDICINE [address] [place] [address] | MD Petrona | | | | | [facility] | [address] [place] [address] | | | | | [place] [address] | [place] [address] | | | | | [phone] | [phone] | | | | | | | [...] | | | | | [place] [address] | | | | | | [phone] | | | | | | | | +--------+---------+ + + + | 12/20/ | Office | Otolaryngology | Ulysses Genao MD | | | 2020 | Visit | | [address] | | | | | | [address] [place], | | | | | | [place] [address] | | | | | | [phone] | | | | | | | | +--------+---------+ + + + | 02/15/ | Office | Internal Medicine | Alanis, | | | 2019 | Visit | | MD Petrona | | | | | | [address] | | | | | | [place] [address] | | | | | | [phone] | | | | | | | | +--------+---------+ + + + documented as of this encounter Visit Diagnoses Not on filedocumented in this encounter"
--- OUTSIDE RECORDS SUMMARY | ~2019-11-17 | XMS | Encounter Summary ---
Demographics + + + | Address | [address] | | | [place] [address] | + + + | Home Phone [...] Team Providers + +------+ + | Care Sagger Maker Name | Role | Phone | [...] + + | 06/11/ | Refill | [facility] | Alanis, | Medication Refill | | 2017 | | MEDICINE [address] [place] [address] | MD Petrona | | | | | [facility] | [address] [place] [address] | | | | | [place] [address] | [place] [address] | | | | | [phone] | [phone] | | | | | | | [...] | | 2019 | Visit | | [facility] [address] | | | | | [address] [place] | | | | | | [place] [address] | | | | | | [phone] | | | | | | | | +--------+---------+ + + + | 12/20/ | Office | Otolaryngology | Ulysses Genao MD | | | 2019 | Visit | | [address] | | | | | | [address] [place], | | | | | | [place] [address] | | | | | | [phone] | | | | | | | | +--------+---------+ + + + | 02/15/ | Office | Internal Medicine | lAanis, | | | 2019 | Visit | | MD Petrona | | | | | | [address] [place] [address] [address] | | | | | | [place] [address] | | | | | | [phone] | | | | | | | | +--------+---------+ + + + documented as of this encounter Visit Diagnoses Not on filedocumented in this encounter"
--- OUTSIDE RECORDS SUMMARY | ~2019-11-17 | XMS | Encounter Summary ---
Demographics + + + | Address | [address] | | | [place] [address] | + + + | Home Phone [...] Team Providers + +------+ + | Care Refrigerator Cabinetmaker Name | Role | Phone | + [...] + + | 03/02/ | Telephone | [facility] | Alanis, | Paperwork | | 2017 | | MEDICINE [address] [place] [address] | MD Petrona | | | | | [facility] | [address] [place] [address] | | | | | [place] [address] | [place] [address] | | | | | [phone] | [phone] | | | | | | | [...] | 2019 | Visit | | [facility] [address] | | | | | | [address] [place] | | | | | | [place] [address] | | | | | | [phone] | | | | | | | | +--------+---------+ + + + | 12/20/ | Office | Otolaryngology | Ulysses Genao MD | | | 2020 | Visit | | [address] | | | | | | [address] [place], | | | | | | [place] [address] | | | | | | [phone] | | | | | | | | +--------+---------+ + + + | 02/15/ | Office | Internal Medicine | Alanis, | | | 2019 | Visit | | MD Petrona | | | | | | [address] | | | | | | [place] [address] | | | | | | [phone] | | | | | | | | +--------+---------+ + + + documented as of this encounter Visit Diagnoses Not on filedocumented in this encounter"
--- OUTSIDE RECORDS SUMMARY | ~2019-11-17 | XMS | Encounter Summary ---
Demographics + + + | Address | [address] | | | [place] [address] | + + + | Home Phone [...] Team Providers + +------+ + | Care Taxonomy Teacher Name | Role | Phone | [...] Floor | | | | | | [place], [place] | | | | | | [address] | | | | | | [phone] | | | +--------+ + + + [...] No: | | | | | | [id number] Name: | | | | | | BELINDA MEEHAN | | | | | | Birthday: 1960 | | | | | | Sex: F | | | | | | Alias:Patient Location: | | | | | | [id number]: Outpatient | | | | | | ActiveOrdering | | | | | | Physician: JOSÉ MIGUEL | | | | | | MARYSOL MORENO SCAPULA | | | | | | COMPLETE completed on | | | | | | 01/01/2009 11:55 | | | | | | AMAccession # | | | | | | [id number]:LEFT | | | | | | SCAPULA [...] | | | | | | report.Author: OBNNIE | | | | | | NOHELIA [...]
--- OUTSIDE RECORDS SUMMARY | ~2019-11-17 | XMS | Encounter Summary ---
Demographics + + + | Address | [address] | | | [place] [address] | + + + | Home Phone [...] Team Providers + +------+ + | Care Transition Social Worker Name | Role | Phone | + +------+ + PCP | Unavailable | + +------+ + Encounter Details +--------+ + + + + | Date | Type | Department | Care Team | Description | +--------+ + + + + | 01/21/ | Abstract | General Surgery | Unknown . | | | 2004 | | Bariatric [address] | | | | | [address] | | | | | | Mailcode: L223A | | | | | | [facility] | | | | | | [address] [place], [place] | | | | | | [address] | | | | | | [phone] | | | +--------+ + + + [...]
--- OUTSIDE RECORDS SUMMARY | ~2019-11-17 | XMS | Encounter Summary ---
Demographics + + + | Address | [address] | | | [place] [address] | + + + | Home Phone [...] + + | Author | [facility] | | | and [place] | + + + | Organization | [facility] | | | [...] Team Providers + +------+ + | Care Living Coach Name | Role | Phone | [...] Description | +--------+--------+ + + + | 05/30/ | Refill | [facility] | Alanis, | Medication Refill | | 2016 | | MEDICINE [address] [place] [address] | MD Petrona | | | | | [facility] | [address] [place] [address] | | | | | [place] [address] | [place] [address] | | | | | [phone] | [phone] | | | | | | | [...] | Visit | | [facility] [address] | | | | | | [address] [place] | | | | | | [place] [address] | | | | | | [phone] | | | | | | | | +--------+---------+ + + + | 12/20/ | Office | Otolaryngology | Ulysses Genao MD | | | 2019 | Visit | | [address] [place] | | | | | | [address] [place], | | | | | | [place] [address] | | | | | | [phone] | | | | | | | | +--------+---------+ + + + | 02/15/ | Office | Internal Medicine | Alanis, | | | 2019 | Visit | | MD Petrona | | | | | | [address] [place] [address] [place] | | | | | | [place] [address] | | | | | | [phone] | | | | | | | | +--------+---------+ + + + documented as of this encounter Visit Diagnoses Not on filedocumented in this encounter"
--- OUTSIDE RECORDS SUMMARY | ~2019-11-17 | XMS | Encounter Summary ---
Demographics + + + | Address | [address] | | | [place] [address] | + + + | Home Phone | | + + + | Preferred Language | Unknown | + + + | Marital Status | | + + + | Synagogue Affiliation | 1001 | + + + | Race | Unknown | + + + | Ethnic Group | Unknown | + + + Author + + + | Author | [facility] | | | and [place] | + + + | Organization | [facility] | | [...] Team Providers + +------+ + | Care Psychologist Industrial Organizational Name | Role | Phone | + +------+ + | Petrona Thapa | PCP | | | MD | | | + +------+ + Reason for Visit + + + | Reason | Comments | + + + | Medication Refill | | + + + | Infusion | Reclast due approx 07/29/17, last one done at the [facility] | + + + Encounter Details +--------+---------+ + + + | Date | Type | Department | Care Team | Description | +--------+---------+ + + + | 07/16/ | Office | [facility] | Emmy-Tajti, | Other osteoporosis, | | 2018 | Visit | MEDICINE [address] | MD Petrona | unspecified | | | | [address] [place] | [address] [facility] | pathological | | | | [place] [address] | [place] [address] | fracture presence | | | | [phone] | [phone] | (Primary Dx); | | | | | | Chronic diarrhea; | | | | | | Leg edema, right; | | | | | | Chronic allergic | | | | | | rhinitis due to | | | | | | other allergic | | | | | | trigger, unspecified | | | | | | seasonality | +--------+---------+ + + + Social History [...] + + + | Blood Pressure | 100/64 | 07/16/2017 10:08 AM | | | | | PST | | + + + + + | Pulse | 66 | 07/16/2017 10:08 AM | | | | | PST | | + + + + + | Temperature | 35.6 C (96.1 F) | 07/16/2017 10:08 AM | | | | | PST | | + + + + + | Respiratory Rate | 16 | 07/16/2017 10:08 AM | | | | | PST | | + + + + + | Oxygen Saturation | 95% | 07/16/2017 10:08 AM | | | | | PST | | + + + + + | Inhaled Oxygen | - | - | | | Concentration | | | | + + + + + | Weight | 96.2 kg (212 lb 1.3 | 07/16/2017 10:08 AM | | | | oz) | PST | | + + + + + | Height | 172.7 cm (5' 8") | 07/16/2017 10:08 AM | | | | | PST | | + + + + + | Body Mass Index | 32.25 | 07/16/2017 10:08 AM | | | | | PST | | + + + + + documented in this encounter Progress Notes Petrona Thapa MD - 07/16/2017 10:00 AM PSTFormatting of this note might be d ifferent from the original. CHIEF COMPLAINT Chief Complaint Patient presents with Medication Refill Infusion Reclast due approx 07/29/17, last one done at the [facility] Belinda Meehan is a 57 y.o. y/o female who presents today for several issues: She has history of osteoporosis, it's been almost a year since she had her first Reclast in fusion. She is asking for a second one. She has history of early surgical menopause and nguyen d a bone density scan before last he has infusion that showed osteoporosis. She also has edema in her right lower extremity that developed over last several days with no fever chills or pain or trauma. Her mobility is reduced due to chronic pain in her back. She is seeing a pain specialist in [place] and is receiving hydrocodone from them. She needs a refill of Lomotil for chronic diarrhea which she tolerates well. She also reports some discomfort in the left nostril which is plugged most of the time for last several weeks. No fever or chills. No purulent drainage. Has history of allergies. REVIEW OF SYSTEMS See [facility] for further details. Review of systems otherwise negative. PAST MEDICAL HISTORY Past Medical History: Diagnosis Date Arthritis Atypical chest pain Benign essential hypertension Blind left eye Cervical radiculopathy Chronic low back pain 01/04/2015 Chronic neck pain 01/04/2015 Chronic pain Chronic venous insufficiency Coccydynia COPD (chronic obstructive pulmonary disease) ([facility]) Depression Diarrhea Dumping syndrome Fatigue fracture of vertebra Fibromyalgia Glaucoma Hyperparathyroidism (HCC) Hypothyroidism IBS (irritable bowel syndrome) Idiopathic scoliosis Leg edema Lumbar postlaminectomy syndrome Lumbar radiculopathy primarily right 01/04/2015 Meniere syndrome Migraines Muscle cramping Muscle spasm Myalgia Nonalcoholic hepatosteatosis Obesity Opiate dependence (HCC) Orthostatic hypotension OLIVER (obstructive sleep apnea) Osteoarthritis, generalized Osteopenia Osteoporosis Peripheral neuropathy ([facility]) Rheumatoid arthritis ([facility]) Right arm pain 01/04/2015 RLS (restless legs syndrome) S/P lumbar fusion 01/04/2015 Scoliosis Spondylosis with myelopathy, lumbar region Stroke ([facility]) Syncope Tremor Type II or unspecified type [...] blood pressure Maternal Grandfather Allergies Maternal Grandfather High blood pressure Paternal Grandmother Heart disease Paternal Grandmother Arthritis Paternal Grandmother Stroke Paternal Grandmother High blood pressure Paternal Grandfather Heart disease Paternal Grandfather Allergies Paternal Grandfather Stroke Paternal Grandfather Arthritis Paternal Grandfather High blood pressure Brother Migraines Brother Arthritis Brother SOCIAL HISTORY Social History Social History Marital [...] LUMPECTOMY Left 2002 CARPAL TUNNEL RELEASE 2002 CHOLECYSTECTOMY 2004 FINGER TRIGGER RELEASE 2003 FINGER TRIGGER RELEASE 2010 GASTRIC BYPASS SURGERY 2004 HYSTERECTOMY 05/14/1980 JOINT REPLACEMENT Bilateral 2007,2008 KNEE ARTHROSCOPY 2005 LAPAROSCOPY 01/27/2015 LAPAROTOMY 2008 MASTECTOMY 2002 ROTATOR CUFF REPAIR 2005 SPINE SURGERY TONSILLECTOMY 1964 CURRENT MEDICATIONS Current Outpatient Prescriptions Medication Sig Dispense Refill ascorbic acid (VITAMIN C) 500 mg tablet Take 500 mg by mouth Daily. azithromycin (ZITHROMAX) 250 mg tablet Take 2 tablets by mouth on day 1, and 1 tablet b y mouth every day (Patient not taking: Reported on 07/16/2017) 6 tablet 0 betaxolol (BETOPTIC-S) 0.25% ophthalmic suspension Use twice daily (Patient not taking: Reported on 07/16/2017) Calcium Carbonate (CALTRATE 600 PO) TABS: 1 [...] as needed for Diarrhea. 120 tablet 5 DULoxetine (CYMBALTA) [address] capsule Take 1 capsule by mouth Daily. (Patient not wilfrid li: Reported on 07/16/2017) 30 capsule 2 fluticasone (FLONASE) 50 mcg/nasal spray 1 spray by Nasal route 2 times daily. 9.9 mL 5 furosemide (LASIX) 80 mg tablet Take 1 tablet by mouth 2 times daily. 180 tablet 1 gabapentin (NEURONTIN) 300 mg capsule Take 4 capsules by mouth 3 times daily for 30 day s. 360 capsule HYDROcodone-acetaminophen (NORCO) 10-325 mg per tablet Take [...] nitroglycerin (NITROSTAT) 0.[address] 0.4 mg under the tongue every 5 minute s as needed for Chest pain. omeprazole (PRILOSEC) 20 mg capsule take 1 capsule by mouth twice a day 180 capsule 1 ondansetron (ZOFRAN ODT) 4 mg disintegrating tablet Take 1 tablet by mouth every 6 hour s as needed for Nausea. 120 tablet 2 potassium chloride (K-DUR) 20 mEq ER tablet take 3 tablets by mouth every morning and 2 tablets by mouth every evening with food 450 tablet 1 rOPINIRole (REQUIP) 1 mg tablet Take 2 mg by mouth nightly. sucralfate (CARAFATE) 1 g tablet Take 1 g by mouth 4 times daily. (Patient taking diffe rently: Take 2 g by mouth 4 times daily.) topiramate (TOPAMAX) 50 MG tablet take 2 tablets by mouth every 12 hours for MIGRAINE P REVENTION 228 tablet 5 torsemide (DEMADEX) 5 mg tablet take 1 tablet by mouth 5 TIMES A WEEK 25 tablet 5 travoprost (TRAVATAN Z) 0.004% ophthalmic solution 1 drop nightly. zoledronic acid (RECLAST) 5 mg/100 mL SOLN Inject 5 mg into the vein once. YEARLY Current Facility-Administered Medications Medication Dose Route Frequency Provider Last Rate Last Dose cyanocobalamin (VITAMIN B-12) injection 1,000 mcg 1,000 mcg Intramuscular Q30 Days Morelia Thapa MD 1,000 mcg at 06/01/17 1135 ALLERGIES Allergies Allergen Reactions Codeine Sulfate Nausea Only Levofloxacin Hives, Itching and Rash Amitriptyline Hcl Other (See Comments) Confused and questionable for seizures Vcjqfkmslk-Uexm-Rfigmbzr Cephalexin Hives Duloxetine Migraines and nausea Ketorolac Hives Morphine Swelling Ropinirole Hcl Hives Tramadol Hcl Nausea Only Cvdwqogubm-Vyud-Iovkkstd Hives and Rash Ciprofloxacin Hives and Rash Clarithromycin Hives and Rash Clindamycin Hcl Hives and Rash Doxycycline Rash Levofloxacin Hives and Rash Penicillins Hives and Rash Sulfamethoxazole-Trimethoprim Hives and Rash PHYSICAL EXAM VITAL SIGNS: BP 100/64 | Pulse 66 | Temp 35.6 C (96.1 F) (Temporal) | Resp 16 | Ht 1.727 m (5' 8") | Wt 96.2 kg (212 lb 1.3 oz) | SpO2 95% | BMI 32.25 kg/m Constitutional: Well developed, Well nourished, No acute distress, Pleasant female. HENT: Normocephalic, Atraumatic, Bilateral external ears normal, Oropharynx with no erythma , No oral exudates, nasal mucosa dry, with decreased vascularity, no discharge or bleeding. Cardiovascular: Regular rate & rhythm, No murmurs, No rubs, No gallops. R lower extremity e qiana above ankle, 2+, no redness or increased local temperature. Thorax & Lungs: Normal breath sounds, No respiratory distress, No wheezing, No rubs. Skin: Warm, Dry, No erythema, No rash. Musculoskeletal: Good range of motion in all major joints. No tenderness to palpation or ma amanda deformities noted. Neurologic: Alert & oriented x 3, Normal motor function, Normal sensory function, No focal deficits noted. Psychiatric: Affect normal, Judgment normal, Mood normal. ASSESSMENT & PLAN 1. Other osteoporosis, unspecified pathological fracture presence Sent for second Reclast infusion. 2. Chronic diarrhea - diphenoxylate-atropine (LOMOTIL) 2.5-0.025 mg per tablet; Take 1 tablet by mouth 4 times daily as needed for Diarrhea. Dispense: 120 tablet; Refill: 5 3. Leg edema, right - VAS Lower Extremity Venous Right; Future 4. Chronic allergic rhinitis due to other allergic trigger, unspecified seasonality - fluticasone (FLONASE) 50 mcg/nasal spray; 1 spray by Nasal route 2 times daily. Dispense : 9.9 mL; Refill: 5 FOLLOW-UP Return in about 1 month (around 08/13/2017). Note: Parts of this documentwere created using [employer] speech recognition software. As a r esult, there may be unintended word spelling errors. Every attempt was made to correct the dictation. Anastasia Bonilla LPN - 07/16/2017 10:00 AM PST Vitamin B12 1000mcg given IM left deltoid. [...] | | | | | [place] [address] | | | | | | [phone] | | | | | | | | +--------+---------+ + + + | 12/20/ | Office | Otolaryngology | Ulysses Genao MD | | | 2019 | Visit | | [address] [place] | | | | | | [address] [place], | | | | | | [place] [address] | | | | | | [phone] | | | | | | | | +--------+---------+ + + + | 02/15/ | Office | Internal Medicine | Alanis, | | | 2019 | Visit | | MD Petrona | | | | | | [address] [place] | | | | | | [place] [address] | | | | | | [phone] | | | | | | | | +--------+---------+ + + + + +---------+--------+ + + | Name | Type | Priori | Associated Diagnoses | Order Schedule | | | | ty | | | + +---------+--------+ + + | VAS Lower Extremity | Imaging | Routin | Leg edema, right | Expected: | | Venous Right | | e | | 07/16/2017, Expires: | | | | | | 07/16/2018 | + +---------+--------+ + + documented as of this encounter Visit Diagnoses + + | Diagnosis | + + | Other osteoporosis, unspecified pathological fracture presence - Primary | + + | Chronic diarrhea Diarrhea | + + | Leg edema, right Edema | + + | Chronic allergic rhinitis due to other allergic trigger, unspecified seasonality | + + documented in this encounter
--- OUTSIDE RECORDS SUMMARY | ~2019-11-17 | XMS | Encounter Summary ---
Demographics + + + | Address | [address] | | | [place] [address] | + + + | Home Phone [...] Team Providers + +------+ + | Care Biomedical Equipment Tech Name | Role | Phone | [...] ANP | | | | | [facility] | | | | | | [address] | | | | | | Mailcode: CH15P | | | | | | [facility] | | | | | | and Healing, | | | | | | Building | | | | | | Floor [place], [place] | | | | | | [address] | | | | | | [phone] | | | +--------+ + + + [...]
--- OUTSIDE RECORDS SUMMARY | ~2019-11-17 | XMS | Encounter Summary ---
Demographics + + + | Address | [address] | | | [place] [address] | + + + | Home Phone | | + + + | Preferred Language | Unknown | + + + | Marital Status | | + + + | Druze Affiliation | 1001 | + + + | Race | Unknown | + + + | Ethnic Group | Unknown | + + + Author + + + | Author | [facility] | | | and [place] | + + + | Organization | [facility] | | | and [...] Team Providers + +------+ + | Care Accounts Officer Name | Role | Phone | [...] Description | +--------+--------+ + + + | 01/01/ | Refill | [facility] | Alanis, | Medication Refill | | 2017 | | MEDICINE [address] [place] [address] | MD Petrona | | | | | [facility] | [address] [place] [address] | | | | | [place] [address] | [place] [address] | | | | | [phone] | [phone] | | | | | | | [...] | | 2019 | Visit | | [facility] [address] | | | | | | [address] [place] | | | | | | [place] [address] | | | | | | [phone] | | | | | | | | +--------+---------+ + + + | 12/20/ | Office | Otolaryngology | Ulysses Genao MD | | | 2019 | Visit | | [address] [place] | | | | | | [address] [place], | | | | | | [place] [address] | | | | | | [phone] | | | | | | | | +--------+---------+ + + + | 02/15/ | Office | Internal Medicine | Alanis, | | | 2019 | Visit | | MD Petrona | | | | | | [address] [place] [address] [address] [place] | | | | | | [place] [address] | | | | | | [phone] | | | | | | | | +--------+---------+ + + + documented as of this encounter Visit Diagnoses Not on filedocumented in this encounter"
--- OUTSIDE RECORDS SUMMARY | ~2019-11-17 | XMS | Encounter Summary ---
Demographics + + + | Address | [address] | | | [place] [address] | + + + | Home Phone [...] Team Providers + +------+ + | Care Glass Calibrator Name | Role | Phone | + [...] | | | | | | | [facility] | | | | | | | Mailcode: | | | | | | | [facility] [place] | | | | | | | [facility] and | | | | | | | Healing, | | | | | | | [address] | | | | | | | [place], [place] | | | | | | | [address] | | | | | | | Phone: | | | | | | | [phone] | | | | | | | Fax: | | | | | | | [phone] | +--------+--------+ + + + + Encounter Details +--------+---------+ + + + | Date | Type | Department | Care Team | Description | +--------+---------+ + + + | 01/10/ | Office | Digestive Health | Chris Padgett, | Status post | | 2009 | Visit | Center [address] | [address] [facility] | bariatric surgery | | | | Ave Mailcode: CH4S | [address] | (Primary Dx) | | | | [facility] | [place], [place] | | | | | and [place], | [address] | | | | | [facility] | [phone] | | | | | Floor [place], [place] | | | | | | [address] | | | | | | [phone] | | | +--------+---------+ + + + [...] + + + | Blood Pressure | 129/60 | 01/10/2010 1:22 PM | | | | | PDT | | + + + + + | Pulse | 70 | 01/10/2010 1:22 PM | | | | | PDT | | + + + + + | Temperature | 36.9 C (98.4 F) | 01/10/2010 1:22 PM | | | | | PDT | | + + + + + | Respiratory Rate | 16 | 01/10/2010 1:22 PM | | | | | PDT | | + + + + + | Oxygen Saturation | - | - | | + + + + + | Inhaled Oxygen | - | - | | | Concentration | | | | + + + + + | Weight | 98.9 kg (218 lb) | 01/10/2010 1:22 PM | | | | | PDT | | + + + + + | Height | 177.8 cm (5' 10") | 01/10/2010 1:22 PM | pt stated ht. | | | | PDT | | + + + + + | Body Mass Index | 31.28 | 01/10/2010 1:22 PM | | | | | PDT | | + + + + + documented in this encounter Progress Notes Chris Padgett MD - 01/14/2010 12:03 PM PDTPt is several years post gastric bypass. Kevin rodriguez continues to be bothered by intermittant episodes of abdominal pain. She has been thoroug hly worked with CT scans upper GI and even exploratory laparotomy and lysis of adhesions. S he is otherwise healthy and has gained a little weight. We reviewed her dietary choices and I asked her to see a reed man where she lives. Will obtain CBC and CMP today. Est pt 15 min reviewing problems and obtaining diet information. documented in this encounter Plan of Treatment Not on filedocumented as of this encounter Visit Diagnoses + + | Diagnosis | + + | Status post bariatric surgery - Primary Bariatric surgery status | + + documented in this encounter
--- OUTSIDE RECORDS SUMMARY | ~2019-11-17 | XMS | Encounter Summary ---
Demographics + + + | Address | [address] | | | [place] [address] | + + + | Home Phone [...] Providers + +------+ + | Care Trial Management Associate Name | Role | Phone | + +------+ + | Petrona Thapa | PCP | | | MD | | | + +------+ + Reason for Visit + + + | Reason | Comments | + + + | Medication Refill | | + + + | Medication Refill | | + + + Encounter Details +--------+--------+ + + + | Date | Type | Department | Care Team | Description | +--------+--------+ + + + | 01/18/ | Refill | [facility] | Alanis, | Medication Refill; | | 2018 | | MEDICINE [address] [place] [address] | MD Petrona | Medication Refill | | | | [facility] | [address] [place] [address] | | | | | [place] [address] | [place] [address] | | | | | [phone] | [phone] | | | | | | | [...] | Visit | | [facility] [address] | | | | | | [address] [place] | | | | | | [place] [address] | | | | | | [phone] | | | | | | | | +--------+---------+ + + + | 12/20/ | Office | Otolaryngology | Ulysses Genao MD | | | 2019 | Visit | | [address] [place] | | | | | | [address] [place] | | | | | | [place] [address] | | | | | | [phone] | | | | | | | | +--------+---------+ + + + | 02/15/ | Office | Internal Medicine | Alanis, | | | 2019 | Visit | | MD Petrona | | | | | | [address] [place] | | | | | | [place] [address] | | | | | | [phone] | | | | | | | | +--------+---------+ + + + documented as of this encounter Visit Diagnoses Not on filedocumented in this encounter"
--- OUTSIDE RECORDS SUMMARY | ~2019-11-17 | XMS | Encounter Summary ---
Demographics + + + | Address | [address] | | | [place] [address] | + + + | Home Phone [...] Team Providers + +------+ + | Care Cell Tester Name | Role | Phone | [...]
--- OUTSIDE RECORDS SUMMARY | ~2019-11-17 | XMS | Encounter Summary ---
Demographics + + + | Address | [address] | | | [place] [address] | + + + | Home Phone | | + + + | Preferred Language | Unknown | + + + | Marital Status | | + + + | Worship Affiliation | 1001 | + + + | Race | Unknown | + + + | Ethnic Group | Unknown | + + + Author + + + | Author | [facility] | | | and [place] | + + + | Organization | [facility] | | | [...] Team Providers + +------+ + | Care Federal Judicial Law Clerk Name | Role | Phone | [...] + + | 07/28/ | Telephone | [facility] | Alanis, | Other | | 2020 | | MEDICINE [address] [place] [address] | MD Petrona | | | | | [facility] | [address] [place] [address] | | | | | [place] [address] | [place] [address] | | | | | [phone] | [phone] | | | | | | | [...] | | 2019 | Visit | | [facility] [address] | | | | | | [address] [place] | | | | | | [place] [address] | | | | | | [phone] | | | | | | | | +--------+---------+ + + + | 12/20/ | Office | Otolaryngology | Ulysses Genao MD | | | 2019 | Visit | | [address] [place] | | | | | | [address] [place], | | | | | | [place] [address] | | | | | | [phone] | | | | | | | | +--------+---------+ + + + | 02/15/ | Office | Internal Medicine | Alanis, | | | 2019 | Visit | | MD Petrona | | | | | | [address] [place] | | | | | | [place] [address] | | | | | | [phone] | | | | | | | | +--------+---------+ + + + documented as of this encounter Visit Diagnoses Not on filedocumented in this encounter"
--- OUTSIDE RECORDS SUMMARY | ~2019-11-17 | XMS | Encounter Summary ---
Demographics + + + | Address | [address] | | | [place] [address] | + + + | Home Phone [...] Team Providers + +------+ + | Care Apartment Leasing Manager Name | Role | Phone | [...] | | | | | [address] | | | | | | | [address] | | | | | | | [place], | | | | | | | [place] | | | | | | | [address] | | | | | | | Phone: | | | | | | | [phone] | | | | | | | Fax: | | | | | | | [phone] | +--------+--------+ + + + + Encounter Details +--------+---------+ + + + | Date | Type | Department | Care Team | Description | +--------+---------+ + + + | 11/10/ | Office | Digestive Health | Chris Padgett, | Status Post | | 2007 | Visit | [place] [address] | [address] | Bariatric Surgery; | | | | Ave Mailcode: [id number] | [address] | Abdominal Pain, | | | | Center [facility] | [place], [place] | Other Specified Site | | | | and Healing, | [address] | | | | | Building | [phone] | | | | | Floor [place], [place] | | | | | | [address] | | | | | | [phone] | | | +--------+---------+ + + + [...]
--- OUTSIDE RECORDS SUMMARY | ~2019-11-17 | XMS | Encounter Summary ---
Demographics + + + | Address | [address] | | | [place] [address] | + + + | Home Phone [...] Team Providers + +------+ + | Care Vacation Planner Name | Role | Phone | + +------+ + | Petrona Thapa | PCP | | | MD | | | + +------+ + Encounter Details +--------+ + + + + | Date | Type | Department | Care Team | Description | +--------+ + + + + | 11/16/ | Episode | [facility] | Dixie Salomon, | | | 2017 | Changes | GASTROENTEROLOGY | RN | | | | | [address] [place] | | | | | | [address] [place] | | | | | | [address] | | | | | | [phone] | | | +--------+ + + + [...] | | | | | [place] [address] | | | | | | [phone] | | | | | | | | +--------+---------+ + + + | 12/20/ | Office | Otolaryngology | Ulysses Genao MD | | | 2019 | Visit | | [address] [place] | | | | | | [address] [place], | | | | | | [place] [address] | | | | | | [phone] | | | | | | | | +--------+---------+ + + + | 02/15/ | Office | Internal Medicine | Alanis, | | | 2019 | Visit | | MD Petrona | | | | | | [address] [place] | | | | | | [place] [address] | | | | | | [phone] | | | | | | | | +--------+---------+ + + + documented as of this encounter Visit Diagnoses Not on filedocumented in this encounter"
--- OUTSIDE RECORDS SUMMARY | ~2019-11-17 | XMS | Encounter Summary ---
Demographics + + + | Address | [address] | | | [place] [address] | + + + | Home Phone [...] Team Providers + +------+ + | Care Seaweed Harvester Name | Role | Phone | + [...] Referral | | 2019 | | MEDICINE [address] [place] [address] | MD Petrona | | | | | [facility] | [address] [place] [address] | | | | | [place] [address] | [place] [address] | | | | | [phone] | [phone] | | | | | | | [...] | | 2019 | Visit | | [facility]3]-A [address] | | [address] [place] [address] [place] | | | | | | [place] [address] | | | | | | [phone] | | | | | | | | +--------+---------+ + + + | 12/20/ | Office | Otolaryngology | Ulysses Genao MD | | | 2019 | Visit | | [address] [place] | | | | | | [address] [place], | | | | | | [place] [address] | | | | | | [phone] | | | | | | | | +--------+---------+ + + + | 02/15/ | Office | Internal Medicine | Alanis, | | | 2019 | Visit | | MD Petrona | | | | | | [address] [place] | | | | | | [place] [address] | | | | | | [phone] | | | | | | | | +--------+---------+ + + + documented as of this encounter Visit Diagnoses Not on filedocumented in this encounter"
--- OUTSIDE RECORDS SUMMARY | ~2019-11-17 | XMS | Encounter Summary ---
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, | José Miguel Strong MD | | | | | uncertain | Eastern | | | | | | behavior of | [facility] | Orthopaedics | | | | | bone and | & Fractur | [address] | | | | | articular | [address] | [address] | | | | | cartilage | [address] | Rd | | | | | Procedures | [place], | Center [place], [place] | | | | | REQUEST TO | [place] [address] | [address] | | | | | SURGERY | Phone: | | | | | | [employer] | [phone] | | | | | | RI BONE | Fax: | | | | | | BIOPSY,OPEN | [phone] | | | | | | DEEP RI | | | | | | | EXCIS/CURET | | | | | | | BENIGN TUMR | | | | | | | CLAV/SCAPULA | | | | | | | RI EXCIS | | | | | | | BENIGN TUMR | | | | | | | CLAV/SCAP,AU | | | | | | | TOGRFT RI | | | | | | | EXCIS BENIGN | | | | | | | TUMR | | | | | | | CLAV/SCAP,AL | | | | | | | LOGRFT | | | +--------+--------+ + + + + Reason for Visit + + + | Reason | Comments | + + + | New patient | | | consultation | | + + + Consultation (Routine) +--------+--------+ + + + + | Status | Reason | Specialty | Diagnoses / | Referred By | Referred To | | | | | Procedures | Contact | Contact | +--------+--------+ + + + + | Closed | | Orthopedic | Diagnoses | Vasquez, | Romain, | | | | Surgery / | Lesion on | Helio Ruiz, | José Miguel Strong MD | | | | Orthopedics | lt natalee | MD [place] | | | | | | | [facility] | Orthopaedics | | | | | | & Fractur | [address] | | | | | | [address] | [address] | | | | | | N[address] | [place] | | | | | | [place], | [place], [place] | | | | | | [place] [address] | [address] | | | | | | Phone: | | | | | | | [phone] | | | | | | | Fax: | | | | | | | [phone] | | +--------+--------+ + + + + Encounter Details +--------+---------+ + + + | Date | Type | Department | Care Team | Description | +--------+---------+ + + + | 01/01/ | Office | Orthopaedics at | José Miguel Moreno, | 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 | Visit | [facility] [address] | MD | Uncertain Behavior | | | | [address] | | of Bone and | | | | Mailcode: 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 | | | | [facility] | | (Primary Dx) | | | | Center [place], [place] | | | | | | [address] | | | | | | [phone] | | | +--------+---------+ + + + [...] + + + | Blood Pressure | 111/60 | 01/01/2009 10:32 AM | | | | | PDT | | + + + + + | Pulse | 64 | 01/01/2009 10:32 AM | | | | | PDT | | + + + + + | Temperature | 37 C (98.6 F) | 01/01/2009 10:32 AM | | | | | PDT [...] Weight | 88.9 kg (196 lb) | 01/01/2009 10:32 AM | | | | | PDT | | + + + + + | Height | 175.3 cm (5' 9") | 01/01/2009 10:32 AM | | | | | PDT | | + + + + + | Body Mass Index | 28.94 | 01/01/2009 10:32 AM | | | | | PDT | | + + + + + documented in this encounter Progress Notes Maylni Bird - 01/03/2009 3:50 PM PDTAddended by: MAYLIN BIRD on: 01/03/2009 3:50 PM Modules accepted: José Miguel Novak MD - 01/03/2009 2:09 PM PDT Addended by: JOSÉ MIGUEL MORENO MD on: 01/03/2009 Modules accepted: Orders José Miguel Louise MD - 01/01/2009 5:32 PM PDT Orthopedic Oncology Clinic I had the pleasure of evaluating Belinda Meehan in my Orthopedic Oncology Clinic today, . Ms. Meehan is a consultation from Dr. Vasquez for evaluation of left shoulder pain. The patient states that she started having this pain for the past 5 to 10 years. She stat es that she is right hand dominant. She states that weather makes the pain worse. She has tried OxyContin and oxycodone for chronic pain which she states did not help with her left s houlder pain. She has had multiple history of operative options including left total knee i n 2006, a right total knee in 2007, lumbar spine surgery in 2007. Regarding her left should er, she did have an arthroscopy on that side in 2004 at which point she states some of the b one was shaved. She states that it did not significantly improve her pain. Constitutional symptoms are none. She denies any intermittent weight loss. She denies any night sweats, fevers, or chills. Her current pain level is 10 about the left shoulder and is all the time. Past Medical History Diagnosis Date Chronic Abdominal Pain on Oxycodone, NSAIDs, ASA RUQ u/s at OSH reportedly nl panc, bile ducts, liver; ct abd/pel normal, Colorectal Polyps Internal Hemorrhoid Benign Tumor of Colon 2005 endoscopy Vertebral Fracture T7,8,9 Xray T spine 2003 Optic Nerve Hemorrhage left eye Sleep Apnea Fibromyalgia Intervertebral Disc Herniation 03/31/07 Pneumonia Abdominal Pain Hx of gastric bypass Fibromyalgia 07/25/2008 Craniocervical junction appears stenotic in cervical extension. Other General Symptoms Reduced Vision Headache Kidney Stone Unspecified Disorder of Thyroid Spondylosis with Myelopathy, Lumbar Region 07/02/2006 Radiculitis, Lumbosacral 03/03/2008 Major Depressive Disorder, Recurrent Episode, Moderate 07/31/2006 Hypothyroidism 11/11/2006 Asthma 493.9 Past Surgical History Procedure Date Hx salpingo-oophorectomy Colonoscopy 03/2006 Hx tonsillectomy Pr d&c after delivery Pr inject trigger point, 1 or 2 Hx knee replacement 02/2007 Left knee Hx knee replacement 08/2007 right knee Hx lumbar fusion 05/2008 [id number] with bone spur removals Hx appendectomy Hx cholecystectomy Hx section Hx hysterectomy Gastric bypass Mayra Padgett wt 278 01/18 Paniculectomy Allergies: Allergies Allergen Reactions Keflex (Cephalexin) Sulfa (Sulfonamides) Codeine Penicillins Clindamycin Cipro (Ciprofloxacin) Tramadol Morphine IM ( only in [facility]) made gut pain worse 08/27/06: Trial of oral MSIR caused leg swelling Clarithromycin Hives Mainly in the legs Arhhcbi-xjcnsximrw-yki-caff Balance problems Amitriptyline Grand mal seizures Medications: Current outpatient prescriptions: aspirin chewable (BABY ASPIRIN) 81 mg Oral Tablet, Chewab le, 2 daily, Disp: , Rfl: buPROPion XL [...] bedt erika as needed, Disp: , Rfl: furosemide (LASIX) 40 mg Oral Tablet, take 1 tablet (40 mg) by oral route once daily, Disp: , Rfl: INDERAL LA 120 mg Oral Capsule,Sustained Action 24 hr, Take 120 mg by mouth once daily at b edtime. , Disp: , Rfl: levothyroxine 50 mcg Oral Tablet, Take 1 Tab by mouth once daily., Disp: 30, Rfl: 3 methocarbamol 750 mg Oral Tablet, Take 1-2 Tabs by mouth three times daily. , Disp: , Rfl: Multivitamin Oral Tablet, 1 tab by mouth twice daily, Disp: , Rfl: omeprazole magnesium (PRILOSEC OTC) 20 mg Oral Tablet, Delayed Release (E.C.), take 1 table t by mouth twice daily, Disp: , Rfl: oxycodone CR 40 mg Oral Tablet Sustained Release 12 hr, Take 40 mg by mouth two times daily . , Disp: , Rfl: OXYCODONE HCL (OXYCONTIN OR), Take by mouth. 10 mg (2 tablets) every 6 hours , Disp: , Rfl : POTASSIUM CHLORIDE SR 20 MEQ TAB, PARTICLES/CRYSTALS, take 1 tablet (20meq) by oral route o nce daily with food, Disp: , Rfl: promethazine 25 mg Oral Tablet, 1 tab by mouth as needed, Disp: , Rfl: risedronate (ACTONEL) 35 mg Oral Tablet tablet, Take 1 Tab by mouth every seven days. , Dis p: 12, Rfl: 12 sucralfate (CARAFATE) 1 gram Oral Tablet, Take 1 Tab by mouth before meals., Disp: 120, Rfl : 1 VITAMIN C 500 MG CHEWABLE TAB, four times a day, Disp: , Rfl: History Social History Marital Status: Single Spouse Name: N/A Number of Children: N/A Years of Education: N/A Social History Main Topics Tobacco Use: Quit -- 1.0 packs/day for 30 years one pack in five days Alcohol Use: No Drug Use: No Sexually Active: No Other Topics Concern Not on file Social History Narrative No narrative on file Family history: Cancer Mother Heart Father Additional Family History Father Comment: Migraine Additional Family History Mother Comment: Migraine Review of systems: A complete review of systems was performed, including the following: Constitutional Eyes Ears, nose mouth, throat Cardiovascular Respiratory Gastrointestinal Genitourinary Musculoskeletal Skin Neurologic General Health Hematologic or Lymphatic Allergic or immunologic For pertinent positives and negatives please refer to the patient's intake form which was r eviewed and signed by me. Physical exam: BP 111/60 | Pulse 64 | Temp(Src) 37 C (98.6 F) (Oral) | Ht 1.753 m (5' 9") | Wt 88.905 kg (196 lb) Today s vital signs are noted as recorded by the Head Porter Baggage. General: Alert, awake, and oriented x3. No acute distress. Head, eyes, ears, nose, throat: Normocephalic, atraumatic. Extra-ocular muscles intact. No jugular venous distension. Chest: Symmetrical, lung clears to auscultation Back: No step-offs, no tenderness to palpation Abdomen: Soft, non-tender, non-distended. No palpable masses. No guarding, no rebound. Focused Physical Exam of the Left Upper Extremity: The patient has no palpable masses. There are no regional nodes. She is discretely tender to palpation about the medial aspect of the left scapula over the scapular spine. She is a lso tender to palpation about the medial border of the scapula, just superior to the inferom edial border. There are no regional nodes. Her shoulder range of motion for flexion 90, ab duction 95, external rotation of 70, and internal rotation to L2. Her sensation is intact t o light touch about the median, radial, ulnar, axial, muscular, cutaneous, and nerve distrib ution. She has 4/5 deltoid, biceps, and triceps with 5/5 wrist dorsiflexion, EPL, FPL, inte rossei, and good motor strength. She has 2+ distal pulses, brisk capillary refill to her di gits. No skin laceration, changes, or abrasions. Films: She comes in today with outside plain radiograph dated 08/05/2008. This shows evidence of some calcification about the biceps tendon. I do not appreciate any lesions about the scapu lar clavicle. This was compared to repeat plain radiograph dated today, 01/01/2009. These also show questionable evidence of a circular lesion about the medial scapular spine; darian r, this is difficult to discern. She also had a CT scan dated 12/11/2008. This is reviewed by me. This shows a radiolucenc y within the scapular spine that measures 1.2 x 1.7 x 1.1 cm. This occurs right at the medi al terminates of the scapular spine and into the scapular body. She also has a bone scan dated 10/02/2008 that is interpreted by me. This shows an increas ed uptake about the left medial scapular spine at an area which coincides with the lesion id entified on CT scan. Impression: A 48-year-old woman with a left scapular lesion. Plan: I reviewed all the clinical and imaging findings with the patient here today. I did discus s with her that she does appear to be having her pain from directly at the level of this les ion as that is where she is discretely point tender. Given her radiographic imaging as well as her symptoms, I do believe it is appropriate to discuss treatment of this lesion. I sugar l review her imaging with our musculoskeletal radiologist, Dr. Eitan Valadez to see if he be lieves that this is amenable to radiofrequency ablation given its location and size. If he does not think it is amenable to a radiofrequency ablation, I may discuss with her leah g with curettage and bone grafting of his lesion. I will call her once this conversation nguyen s been had. Thank you for allowing me to participate in the care of this patient. Orders Placed This Encounter X-ray scapula complete Oxycontin or documented in this e ncounter Plan of Treatment Not on filedocumented as of this encounter Results X-RAY SCAPULA COMPLETE (01/01/2009 [...] No: | | | | | | [id number] Name: | | | | | | BELINDA MEEHAN | | | | | | Birthday: 1960 | | | | | | Sex: F | | | | | | Alias:Patient Location: | | | | | | [id number]: Outpatient | | | | | | ActiveOrdering | | | | | | Physician: JOSÉ MIGUEL | | | | | | MARYSOL MORENO SCAPULA | | | | | | COMPLETE completed on | | | | | | 01/01/2009 11:55 | | | | | | AMAccession # | | | | | | [id number]:LEFT | | | | | | SCAPULA [...] NICOLE | | | | | | ANAUS | | | | | | PRELIMINARY [...] uncertain behavior of bone and articular cartilage - Primary | + + documented in this encounter
--- OUTSIDE RECORDS SUMMARY | ~2019-11-17 | XMS | Encounter Summary ---
Demographics + + + | Address | [address] | | | [place] [address] | + + + | Home Phone [...] Team Providers + +------+ + | [employer] Supervisor Name | Role | Phone | [...] + + | Closed | Specialty | Neurology | Diagnoses | | Domingo, | | | Services | | Poor memory | Rene | MD Alexandra | | | Required | | | i, | [address] | | | | | | [place] | [address] | | | | | MD [address] | [address] | | | | | | [address] | [place] | | | | | | [place], | [address] | | | | | | [place] | Phone: | | | | | | [address] | [phone] | | | | | | Phone: | Fax: | | | | | | [phone] | [phone] | | | | | | Fax: | | | | | | | [phone] | | +--------+ + + + + + Reason for Visit + + + | Reason | Comments | + + + | Follow-up | 1 month/ pain management person sayfrancesco burch has dementia | + + + | Injections | b 12 | + + + | Medication Follow-up | Reclast | + + + | Lab Order | check electrolytes | + + + Encounter Details +--------+---------+ + + + | Date | Type | Department | Care Team | Description | +--------+---------+ + + + | 04/18/ | Office | [facility] | Alanis, | Poor memory (Primary | | 2019 | Visit | MEDICINE [address] [place] [address] | MD [place] | Dx); B12 | | | | [address] [place] | [address] [facility] | deficiency; Fatty | | | | [place] [address] | [place] [address] | liver | | | | [phone] | [phone] | | | | | | | [...] + + + | Blood Pressure | 108/60 | 04/18/2019 9:38 AM | | | | | PST | | + + + + + | Pulse | 62 | 04/18/2019 9:38 AM | | | | | PST | | + + + + + | Temperature | 36.6 C (97.9 F) | 04/18/2019 9:38 AM | | | | | PST | | + + + + + | Respiratory Rate | 16 | 04/18/2019 9:38 AM | | | | | PST | | + + + + + | Oxygen Saturation | 98% | 04/18/2019 9:38 AM | | | | | PST | | + + + + + | Inhaled Oxygen | - | - | | | Concentration | | | | + + + + + | Weight | 92.4 kg (203 lb 11.3 | 04/18/2019 9:38 AM | | | | oz) | PST | | + + + + + | Height | - | - | | + + + + + | Body Mass Index | 30.97 | 01/17/2019 9:53 AM | | | | | PDT | | + + + + + documented in this encounter Progress Notes Petrona Thapa MD - 04/18/2019 9:30 AM PSTFormatting of this note might be d ifferent from the original. CHIEF COMPLAINT Chief Complaint Patient presents with Follow-up 1 month/ pain management person says she has dementia Injections b 12 Medication Follow-up Reclast Lab Order check electrolytes HPI Belinda Meehan is a 59 y.o. y/o female who presents today for several issues: She states she has been told by her pain specialist that she should be checked for dementia . Patient states she thinks she had a bad day that day as she does not think she has seriou s memory problems although on further questioning she does recall a recent incident where sh e states she took her morning medications again in the afternoon after she took a nap thinki ng he was the morning again. She does have history of B12 deficiency and gets B12 injections in our office. She also nguyen s history of hypothyroidism, on levothyroxine supplementation. Last TSH was fine a few gregory hs ago. She does take a number of medication with sedative properties, including gabapentin, methoc arbamol, hydrocodone, topiramate, as well as a fairly strong dose of diuretics for chronic v enous insufficiency. She would like her electrolytes checked. She also has history of fatty liver with elevated liver enzymes on recent labs. She states she has tried to avoid Tylenol and lost a couple of pounds since last visit. No alcohol or illicit drug use. ASSESSMENT & PLAN 1. Poor memory - Comprehensive Metabolic Panel; Future -We will refer to neurology for further evaluation. Today's MOCA test is certainly suggest gerda of possible dementia, although she does take a fair number of medications that can have a negative impact on her ability to recall and her speed of processing mental tasks. 2. B12 deficiency - Vitamin B-12; Future - Folate; Future 3. Fatty liver - Comprehensive Metabolic Panel; Future REVIEW OF SYSTEMS Review of Systems Constitutional: Positive for fatigue. HENT: Negative. Eyes: Negative. Respiratory: Negative. Gastrointestinal: Negative. Endocrine: Negative. Genitourinary: Negative. Musculoskeletal: Negative. Skin: Negative. Neurological: Negative. Poor memory Psychiatric/Behavioral: Negative. PHYSICAL EXAM VITAL SIGNS: BP 108/60 | Pulse 62 | Temp 36.6 C (97.9 F) (Temporal) | Resp 16 | Wt 92.4 kg (203 lb 11.3 oz) | LMP (LMP Unknown) | SpO2 98% | ? No | BMI 30.97 kg/m Constitutional: Well developed, No acute distress, Pleasant female. HENT: Normocephalic, Atraumatic, Bilateral external ears normal, Oropharynx with no erythma , No oral exudates, Nose normal. Eyes: PERRLA, EOMI, Conjunctiva normal, No discharge. Cardiovascular: Regular rate & rhythm, No murmurs, No rubs, No gallops. No lower extremitie s edema. Thorax & Lungs: Normal chest, No respiratory distress, No crackles, wheezing, or rubs. Skin: Warm, No erythema, No rash. Neurologic: Alert & oriented x 3, Normal motor function, Normal sensory function, No focal deficits noted. Psychiatric: Affect normal, Judgment slow but appears nl. No depression or suicidal thinki ng. [place] Cognitive Assessment (MoCA) Office Visit from 04/18/2019 in [facility] Visuospatial / Executive 4 Naming 2 Attention - List of Digits 1 Attention - List of Letters 1 Attention - Serial 7 Subtraction 0 Language - Repeat 0 Language - Fluency 0 Abstraction 1 Memory - Delayed Recall 0 Orientation 6 <=12 year education 1 Total Score (Calculated) 16 Administered the [place] Cognitive Assessment (MoCA) a cognitive screening measure designe d to assist health professionals in detecting cognitive impairment. A total score of 26/30 is considered normal. (The MoCA average score for patient's with normal controls is 27.4, m ild cognitive impairment is 22.1, and alzheimer's disease is 16.2.) PAST MEDICAL HISTORY Past Medical History: Diagnosis [...] Spondylosis with myelopathy, lumbar region Stroke ([facility]) Syncope Tremor Type II or unspecified [...] Last attempt to quit: 04/15/2014 Years since quittin.0 Smokeless tobacco: Never Used Tobacco comment: stopped smoking Substance and Sexual Activity Alcohol use: No Alcohol/week: 0.0 oz Drug use: No Sexual activity: Never SURGICAL HISTORY Past Surgical History: Procedure Laterality Date ADENOIDECTOMY APPENDECTOMY BREAST LUMPECTOMY Left 2002 CARPAL TUNNEL RELEASE 2002 SECTION CHOLECYSTECTOMY 2004 COLONOSCOPY N/A 12/18/2017 Procedure: COLONOSCOPY; Surgeon: Luther Brito MD; Location: [facility] MEDICAL PROCEDURE UNIT DILATION AND CURETTAGE OF UTERUS ELBOW SURGERY FINGER TRIGGER RELEASE 2002 FINGER TRIGGER RELEASE 2009 GASTRIC BYPASS SURGERY 2004 HYSTERECTOMY 05/14/1980 JOINT REPLACEMENT Bilateral 2007 2008 KNEE ARTHROSCOPY 2005 LAPAROSCOPY 01/27/2015 LAPAROTOMY 2008 ROTATOR CUFF REPAIR 2005 SPINE SURGERY TONSILLECTOMY 1964 UPPER GASTROINTESTINAL ENDOSCOPY N/A 12/18/2017 Procedure: EGD; Surgeon: Luther Brito MD; Location: [facility] MEDICAL PROCEDURE UNIT CURRENT MEDICATIONS [...] Daily. COMBIGAN 0.2-0.5 % ophthalmic solution 0 EPINEPHrine (EPIPEN) 0.3 mg/0.3 mL injection (ER [...] Days Morelia Thapa MD 1,000 mcg at 04/18/19 0955 ALLERGIES Allergies Allergen Reactions Ensure Diarrhea Food Diarrhea Lactose Dssjvwhmto-Wqq-Brih-Codeine Other (See Comments) Balance problems Codeine Sulfate Nausea Only Food Allergy Formula Diarrhea Ensure Levofloxacin Hives, Itching and Rash Butalbital Ropinirole Amitriptyline Hcl Other (See Comments) Confused and questionable for seizures Maurkshluk-Bilf-Lpngkute Rash duplicate Lvakabjntw-Grjq-Yetlnnon Hives and Rash Cephalexin Hives Ciprofloxacin Hives and Rash Clarithromycin Hives and Rash Clindamycin Hcl Hives and Rash Doxycycline Rash Duloxetine Other (See Comments) Migraines and nausea Ketorolac Hives Levofloxacin Hives and Rash Morphine Swelling Penicillins Hives and Rash Ropinirole Hcl Hives Sulfamethoxazole-Trimethoprim Hives and Rash Tramadol Hcl Nausea Only FOLLOW-UP Return in about 6 weeks (around 06/01/2019) for Labs review. Notes: 1. Parts of this documentwere created using Trave[employer] speech recognition software. As a resu lt, [...] | | 2019 | Visit | | [facility] [address] | | | | | | [place] | | | | | | [place] [address] | | | | | | [phone] | | | | | | | | +--------+---------+ + + + | 12/20/ | Office | Otolaryngology | Ulysses Genao MD | | | 2019 | Visit | | [address] [place] | | | | | | [address] [place], | | | | | | [place] [address] | | | | | | [phone] | | | | | | | | +--------+---------+ + + + | 02/15/ | Office | Internal Medicine | Alanis, | | | 2019 | Visit | | MD [place] | | | | | | [address] [place] | | | | | | [place] [address] | | | | | | [phone] | | | | | | | | +--------+---------+ + + + + + +--------+ + + | Name | Type | Priori | Associated Diagnoses | Order Schedule | | | | ty | | | + + +--------+ + + | July Neurology | Outpatient | Routin | Poor memory | Expected: | | - AMB Referral | Referral | e | | 04/18/2019, Expires: | | | | | | 04/18/2020 | + + +--------+ + + documented as of this encounter Results Comprehensive Metabolic Panel (04/18/2019 11:29 AM PST) + + + + + + | Component | Value | Ref Range | Performed | Pathologist | | | | | At | Signature | + + + + + + | Na | 144 | 136 - 145 | [facility] | | | | | mmol/L | [facility] | | | | | | [facility] | | | | | | [facility] - | | | | | | LABORATORY | | + + + + + + | K | 4.3 | 3.4 - 5.1 | [facility] | | | | | mmol/L | [facility] | | | | | | [facility] | | | | | | [facility] - | | | | | | LABORATORY | | + + + + + + | Cl | 108 (H) | 98 - 107 mmol/L | [facility] | | | | | | [facility] | | | | | | [facility] | | | | | | [facility] - | | | | | | LABORATORY | | + + + + + + | CO2 | 30 | 20 - 31 mmol/L | [facility] | | | | | | [facility] | | | | | | [facility] | | | | | | [facility] - | | | | | | LABORATORY | | + + + + + + | Anion Gap | 6 | 3 - 16 mmol/L | [facility] | | | | | | [facility] | | | | | | [facility] | | | | | | [facility] - | | | | | | LABORATORY | | + + + + + + | Glucose | 94 | 60 - 106 mg/dL | [facility] | | | | | | [facility] | | | | | | [facility] | | | | | | [facility] - | | | | | | LABORATORY | | + + + + + + | BUN | 9 | 9 - 23 mg/dL | [facility] | | | | | | [facility] | | | | | | [facility] | | | | | | [facility] - | | | | | | LABORATORY | | + + + + + + | Creatinine | 0.80 | 0.55 - 1.02 | [facility] | | | | | mg/dL | [facility] | | | | | | [facility] | | | | | | C[facility] - | | | | | | LABORATORY | | + + + + + + | eGFR if not | >60Comment: GLOMERULAR | >=60 | [facility] | | | | FILTRATION | mL/min/1.73m2 | [facility] | | | MACANESE | RATE,ESTIMATED | | MEDICAL | | | | mL/min/1.31b2Kdxs than | | CENTER - | | [...] + + + + | Calcium | 9.9 | 8.7 - 10.4 | [facility] | | | | | mg/dL | [facility] | | [facility] | [facility] | | | | | | [facility] - | | | | | | LABORATORY | | + + + + + + | Albumin | 4.4 | 3.2 - 4.8 g/dL | [facility] | [facility] | | | | | | [facility] - | | | | | | LABORATORY | | + + + + + + | Bilirubin | 0.6 | 0.3 - 1.2 mg/dL | [facility] | | | Total | | | [facility] | | | | | | [facility] | | | | | | C[facility] - | | | | | | LABORATORY | | + + + + + + | Total | 6.4 | 5.7 - 8.2 g/dL | [facility] | | | Protein | | | [facility] | | | | | | [facility] | | | | | | C[facility] - | | | | | | LABORATORY | | + + + + + + | AST | 38 (H) | 0 - 34 U/L | [facility] | | | | | | [facility] | | | | | | [facility] | | | | | | C[facility] - | | | | | | LABORATORY | | + + + + + + | ALT | 25 | 10 - 49 U/L | [facility] | | | | | | [facility] | | | | | | [facility] | | | | | | CENTER - | | | | | | LABORATORY | | + + + + + + | Alkaline | 83 | 46 - 116 U/L | [facility] | | | Phosphatase | | | [facility] | | | | | | [facility] | | | | | | CENTER - | | | | | | LABORATORY | | + + + + + + | Globulin | 2.0 (L) | 2.1 - 3.8 g/dL | [facility] | | | | | | [facility] | | | | | | [facility] | | | | | | C[facility] - | | | | | | LABORATORY | | + + + + + + | Albumin/Flor | 2.2 (H) | 0.8 - 1.9 | [facility] | | | bulin Ratio | | | [facility] | | | | | | [facility] | | | | | | CENTER - | | | | | | LABORATORY | | + + + + + + | BUN/Creatin | 11.3 | | [facility] | | | ine Ratio | | | [facility] | | | | [...] | + + + + + | [facility] | [address] | [place] | [phone] | | [facility] | | [address] | | | - LABORATORY | | | | + + + + + Folate (04/18/2019 11:29 AM PST) + +-------+ + + + | Component | Value | Ref Range | Performed | Pathologist | | | | | At | Signature | + +-------+ + + + | FOLATE | 40.9 | >5.4 ng/mL | [facility] | | | | | [...] ST. | [address] | [place] | [phone] | | [facility] | | [address] | | | - LABORATORY | | | | + + + + + Vitamin B-12 (04/18/2019 11:29 AM PST) + + + + + + | Component | Value | Ref Range | Performed | Pathologist | | | | | At | Signature | + + + + + + | VITAMIN | >[id number] (H)Comment: | 156 - 672 pg/mL | [facility] | | | B-12 | DEFICIENT: | | [facility] | | | | <145 | | MEDICAL | | | | pg/mLINDETERMINATE: | | CENTER - | | | | 145-180 pg/mL THIS B12 | | LABORATORY | | | | HAS BEEN REPEATED WITH A | | | | | | DILUTION PROCEDURE TO | | | | | | CALCULATE A RESULT | | | | | | GREATER THAN 1500 pg/mL. | | | | | | THE ASSAY HAS NOT BEEN | | | | | | VALIDATED FOR THIS | | | | | | HIGHER RANGE, AND | | | | | | RESULTS SHOULD BE | | | | | | INTERPRETED WITH | | | | | | CAUTION. | | | | + + + + + + + + | Specimen | + + | Blood | + + + + + + + | Performing | Address | City/State/Zipcode | Phone Number | | Organization | | | | + + + + + | [facility] | [address] | [place] | [phone] | | [facility] | | [address] | | | - LABORATORY | | | | + + + + + documented in this encounter Visit Diagnoses + + | Diagnosis | + + | Poor memory - Primary Memory loss | + + | B12 deficiency Other B-complex deficiencies | + + | Fatty liver Other chronic nonalcoholic liver disease | + + documented in this encounter [...] | | First dose on [facility] 10/15/17 at 1215 | | | [...]
--- OUTSIDE RECORDS SUMMARY | ~2019-11-17 | XMS | Encounter Summary ---
Demographics + + + | Address | [address] | | | [place] [address] | + + + | Home Phone [...] Providers + +------+ + | Care Machine Tool Operator Name | Role | Phone | + +------+ + | Pedrito Gutierrez MD | PCP | | + +------+ + Reason for Visit + + + | Reason | Comments | + + + | Pain | all over | + + + | LBP - Low back pain | | + + + Encounter Details +--------+---------+ + + + | Date | Type | Department | Care Team | Description | +--------+---------+ + + + | 03/03/ | Office | [facility] | Delfina Molina, | LBP (Low Back Pain); | | 2007 | Visit | Pain Center at | ANP | Spondylosis with | | | | [facility] | | Myelopathy, Lumbar | | | | [address] | | Region; Bilateral | | | | Mailcode: [id number] | | Leg Pain; | | | | [facility] | | Radiculitis, | | | | and Healing, | | Lumbosacral; | | | | Building | | Encounter for | | | | Floor [place], [place] | | Long-Term (Current) | | | | [address] | | Use of Opioids; Hx | | | | [phone] | | Arthroplasty of both | | | | | | Knees; Major | | | | | | Depressive Disorder, | | | | | | Recurrent Episode, | | | | | | Moderate (HCC); | | | | | | Adjustment Disorder | | | | | | with Anxiety; | | | | | | Migraine Headache; | | | | | | Fibromyalgia | | | | | | syndrome 729.1; | | | | | | Abdominal Pain, | | | | | | dumping syndrome Hx | | | | | | of gastric bypass; | | | | | | Dumping Syndrome; | | | | | | Diarrhea Following | | | | | | Gastrointestinal | | | | | | Surgery | +--------+---------+ + + + Social History [...] + + + | Blood Pressure | 111/67 | 03/03/2008 10:25 AM | | | | | PDT | | + + + + + | Pulse | 68 | 03/03/2008 10:25 AM | | | | | PDT | | + + + + + | Temperature | 36.7 C (98 F) | 03/03/2008 10:25 AM | | | | | PDT | | + + + + + | Respiratory Rate | 16 | 03/03/2008 10:25 AM | | | | | PDT | | + + + + + | Oxygen Saturation | 100% | 03/03/2008 10:25 AM | | | | | PDT | | + + + + + | Inhaled Oxygen | - | - | | | Concentration | | | | + + + + + | Weight | 87.8 kg (193 lb 8 | 03/03/2008 10:25 AM | | | | oz) | PDT | | + + + + + | Height | 175.3 cm (5' 9") | 03/03/2008 10:25 AM | | | | | PDT | | + + + + + | Body Mass Index | 28.57 | 03/03/2008 10:25 AM | | | | | PDT | | + + + + + documented in this encounter Patient Instructions Patient Instructions Petra Delfina - 03/03/2008 10:50 AM PDT1. Local PT for lower extremi tyneuropathic pain due to lumbar radiculitis vs sciatica; mechanical lower back pain and cor e strengthening. 2. Please continue with your current pain treatment, schedule a follow up with Dr. Brenda SHEEHAN to review our recommendations/plan and to commence therapy as appropriate. 3. I recommend a self help book for improving pain coping and adaptation called 'Managing P ain Before It Manages You' by Mariama Canela. 4. Follow up 3 months documented in this encounter Progress Notes Delfina Molina - 03/03/2008 10:36 AM PDTFormatting of this note might be different from th jennifer gomez. 03/03/2008 Belinda Meehan is a 48 y.o. female [facility] Return Visit Chief Complaint: Chief Complaint Patient presents with Pain all over LBP - Low back pain History of Present Illness: Belinda Meehan is a 47 y.o. year-old female with a history of complex history of chronic spine pain due to degenerative spine S/p bilateral knee arthropl asty(s) due to DJD/Arthritis, abdominal pain due to dumping synrome hx of gastric bypass, an d fibromyalgia. Belinda Meehan is here today for a follow up visit to review chronic pain management plan of care. Since prior visit she reprots no longer having pain in the knees, she reports sina n that is worst in the lower back and right leg. She does not have new pain complaints on this visit. Expectations for this visit include: review pain management and discuss options for managem ent of lower back pain The worst pain today is located in the lowr back and right leg and described as constant sh lashawn aching intermittent shooting in the leg. Pain improves with Lying down rest, changing p ositions, and is aggrevated by bending, work, exercise, wlaking sitting. Pain is not associ ated with intermittent numbness tingling right leg, does get weakness; She she does report tingling and numbness both feet. She is seeing a neurologist for migraines this pending. She reports more frequent migraines and new symptoms of "black outs" she estimates 4 episodes in past month. Denies falling. Yonger son has witnessed these, she things the longest LOC was 4 minutes. ED assessment be ing reviewed by Dr Constantino SHEEHAN dinkey driver. MRI of the brain and it was normal A Brief Pain Inventory and a pain drawing has be completed, which I reviewed. [facility] Brief Pain Inventory: (ten= worst possible pain or complete interference) Right Now: 9 (03/03/08 10:16 AM) Least in 24 hours: 5 (03/03/08 10:16 AM) Worst in 24 hours: 10 (03/03/08 10:16 AM) Average: 10 (03/03/08 10:16 AM) % Relief (med/treat): 50 (03/03/08 10:16 AM) General Activity: 7 (03/03/08 10:16 AM) Mood: 9 (03/03/08 10:16 AM) Walking Ability: 9 (03/03/08 10:16 AM) Normal Work: 10 (03/03/08 10:16 AM) Relations with Others: 9 (03/03/08 10:16 AM) Enjoyment of Life: 7 (03/03/08 10:16 AM) Sexual Activity: 0 (03/03/08 10:16 AM) Sleep: 10 (03/03/08 10:16 AM) Treatment since last visit includes: 1. Medication management: Oxycontin 40 mg Q12hr oxycodone 5 mg 2 tablets every 4-6 hours so me days its is typically every 4 hours she sees this as helping the lower back hips and legs . Hx of fentanyl patch worked well did not stay on while swimming Dr Gutierrez not willing to prescribe the methadone Morphine legs swelled. Pregabalin [leg swelling] gabapentin [ memory deficits] and oxcarbazepine [not effective] 2. Physical Rehabilitation: She has finished her knee rehab. 3. Mental Health care: psychology Dr. Ogden PhD TPI every 5-6 months with [facility] Rheumatology Hilda Saenz Review of Systems: Bones, Joints, and Muscles: joint pain, muscle pain and stiffness, leg swelling. Gastrointestinal System: poor appetite 2 oz of food, chronic nausea, abdominal pain and lawrence rrhea Genitourinary System: negative Nervous System: weakness, headache and dizziness vs vertigo: depressed mood, sleep distur bance anxiety Prior visit, there have been no changes in past medical history, past surgical history, fam bijan history, or social history. [facility] Encorinology [facility] ACNP ThuNovember 12, 2007 Assessment: 1) Hypothyroidism 2) Osteopenia 3) History of obesity, s/p gastric bypass 4) Hypotension 5) Other chronic problems as above Plan: 1) Clinically and biochemically euthyroid. Cont LT4 at current dose 2) Continue bisphosphonate, vitamin D and calcium. Repeat DEXA in 1-2 years 3) Suspect volume contraction and medication induced hypotension. While this dose of furose mide may relieve the discomfort and dyscosmesis of LE swelling, its use should be carefully monitored to avoid excessive diuresis, pre-renal azotemia, electrolyte abnormalities and hyp otension. We have advised her to cut her dose and half and follow-up as soon as possible wit h her PCP. We have referred her to neurology in the hopes that they can help management her transition off of propranolol which may also be contributing to her hypotension. She needs shea gamez a PCP. We will continue to discuss with her options at [facility] with, hopefully, coordinatio n of services. RTC in 3 mos, earlier if problems. Case discussed with Dr. Meeks who examined patient and agrees with above. Edy Stephens MD Fellow, Endocrinology and Metabolism Current outpatient prescriptions Medication Sig Dispense Refill aspirin chewable (BABY ASPIRIN) 81 mg Oral Tablet, Chewable 2 daily buPROPion XL (WELLBUTRIN XL) 300 mg Oral Tablet Sustained Release 24 hr take 1 tablet ( 300 mg) by oral route once daily hvpzomladh-xzxcvyqigjfnu-zrnkozci (FIORICET) 50-325-40 mg Oral Tablet take 2 [...] (40 mg) by oral route once daily levothyroxine 50 mcg Oral Tablet take 1 tablet (50 mcg) by oral route once daily 30 1 2 Multivitamin Oral Tablet 1 tab po bid [...] with food procaine 1 % Injection Solution procaine 0.5% 12 cc 0 promethazine 25 mg Oral Tablet as needed propranolol CR (INDERAL LA) 160 mg Oral Capsule,Sustained Action 24 hr take 1 capsule ( 160 mg) by oral route once daily riserdronate (ACTONEL) 35 mg Oral Tablet take 1 tablet (35 mg) by oral route once weekl y in the morning, at least 30 minutes before the first food, beverage, or medication of the day 12 1 year sucralfate (CARAFATE) 1 gram Oral Tablet 1 tab four times daily as needed for abdominal pain 60 3 VITAMIN C 500 MG CHEWABLE TAB [...] section Hx knee replacement 08/2007 right knee Family History Problem Relation Cancer Mother Heart Father Additional Family History Father Migraine Additional Family History Mother Migraine LUMBAR SPINE W/O CONTRAST AT 1503 HOURS MRI LUMBAR SPINE, 10/06/05 HISTORY: Low back pain with radiation into hips. TECHNIQUE: T1/T2/STIR sagittal, T1 and T2 axial. FINDINGS: The conus medullaris is at the T12-L1 level. Multiple Schmorl's node defects are noted across the thoracolumbar junction. The lumbar vertebra are in proper alignment with normal body heights. At L1-2 and L2-3, the spinal canal and neural canals are unremarkable. At L3-4, there is mild central disk bulging, but there is no stenosis. At L4-5, the disk space is narrowed and there is a central prominent disk bulge, consistent with a herniated nucleus pulposus, which indents the anterior thecal sac. At L5-S1, the disk space is narrowed and contains nitrogen representing disk desiccation/degeneration, with a mild posterior disk bulge. IMPRESSION: MODERATE CENTRAL DISK BULGE AT L4-5 IS CONSISTENT WITH A HERNIATED NUCLEUS PULPOSUS. DISK DESICCATION/DEGENERATION AT L5-S1 WITH A MILD DISK BULGE. Transcribed By: Armaan Mata : [id number] : 1442 Approved By: Radiologist: Physical Examination: BP 111/67 | Pulse 68 | Temp (Src) 36.7 C (98 F) (Oral) | Resp 16 | Ht 1.753 m (5' 9") | Wt 87.771 kg (193 lbs 8 oz) | SpO2 100% Body mass index is 28.57 kg/(m^2). General appearance: Obese, Alert in no acute distress, well groomed, pleasant Lumbar spine: typical pain with exteniso and rotaiton to right >left axial tenderness and s econdary muscle tenderness glutueals antalgic gait Impression: 724.2AF LBP (Low Back Pain) 721.42 Spondylosis with Myelopathy, Lumbar Region 729.5BS Bilateral Leg Pain 724.4M Radiculitis, Lumbosacral V58.69 Encounter for Long-Term (Current) Use of Opioids V43.65D Hx Arthroplasty of both Knees 296.32 Major Depressive Disorder, Recurrent Episode, Moderate 309.24 Adjustment Disorder with Anxiety 346.90D Migraine Headache 729.1 Fibromyalgia syndrome 729.1 789.09 Abdominal Pain, dumping syndrome Hx of gastric bypass 564.2B Dumping Syndrome 564.4A Diarrhea Following Gastrointestinal Surgery Belinda Meehan with complex history of chronic pain reports bieng compliant with all aspe cts of chronic opioid therapy is using breakthrough pain medications requiring averaging 8 o xycodone per day, to avoid frequent pill taking and improve the stability of opioid thearp y and pain control it would be reasonable to increase the oxcontin dosing schedule with the intentions of discontinuing the oxycodone. She is using the medication as directed, demons trates benefits, and has no serious adverse effects. There were no significant cognitive or mood impairments. There is no evidence of diversion past or present. We discussed options of intervetional pain management for lower back and right leg pain [ E SI vs diagnostic medial branch nerve block/facet dendervation vs Spinal Cord Stimulator]. I f after 4-5 weeks of PT and reducing her myofacial pain and her pain becoming more focal she could be evaluted by Dr. Murali Montero MD for a plan. Recommendations/Plan: A 30 minute visit with greater than 50% spent in reviewing the progress notes and counselli ng/education of the patient. 1. Referal was given for Belinda to work with local physcial therapy: focus on active and ma nual therapy for lower back pain, LE and core strengthening. 2. Continue with current pain treatment, schedule a follow up with Dr. Brenda SHEEHAN to review Recommendations and to commence therapy I recommend Dr. Gutierrez increase the Oxycontin to 40 mg, 1 tablrt every 8hr and discontinue the oxycodone or continue with current regimen. 3. Follow up 3 months to review her progress and options - The pateint was asked to call the clinic with any concerns or questions. DELFINA MOLINA [facility] Mail code CH 4P [facility] [address] [place] [id number] Ailyn Foster - 03/03/20 08 10:24 AM PDTCMKatie History: PMH/PSH/SH/FH review 1. Has your pain changed from your last visit? increased 2. Do you have any new weakness or decrease in sensation? yes Tingling in legs and feet 3. Do you have any difficulty with urination? Not applicable 4. How often do you have a [...] diagnostic studies since your last appointment? Yes blood work 10. Do you require any medication refills today? no documented in this encounter Plan of Treatment Not on filedocumented as of this encounter Visit Diagnoses + + | Diagnosis | + + | LBP (low back pain) Lumbago | + + | Spondylosis with myelopathy, lumbar region | + + | Bilateral leg pain Pain in limb | + + | Radiculitis, lumbosacral Thoracic or lumbosacral neuritis or radiculitis, unspecified | + + | Encounter for Long-Term (Current) Use of Opioids Encounter for long-term (current) | | use of other medications | + + | Hx Arthroplasty of both Knees Knee joint replacement by other means | + + | Major depressive disorder, recurrent episode, moderate (HCC) Major depressive | | disorder, recurrent episode, moderate | + + | Adjustment disorder with anxiety | + + | Migraine headache Migraine, unspecified, without mention of intractable migraine | | without mention of status migrainosus | + + | Fibromyalgia syndrome 729.1 Mylagia and myositis, unspecified | + + | Abdominal Pain, dumping syndrome Hx of gastric bypass Abdominal pain, other | | specified site | + + | Dumping syndrome Postgastric surgery syndromes | + + | Diarrhea following gastrointestinal surgery Other postoperative functional disorders | + + documented in this encounter
--- OUTSIDE RECORDS SUMMARY | ~2019-11-17 | XMS | Encounter Summary ---
Demographics + + + | Address | [address] | | | [place] [address] | + + + | Home Phone [...] + + | Author | [facility] | | | and [place] | + + + | Organization | [facility] | | [...] Team Providers + +------+ + | Care Gun Barrel Finisher Name | Role | Phone | + +------+ + | Petrona Thapa | PCP | | | MD | | | + +------+ + Reason for Visit + + + | Reason | Comments | + + + | Medication Follow-up | | + + + | Referral | Rheumotologist | + + + | ER Follow-up | | + + + Encounter Details +--------+---------+ + + + | Date | Type | Department | Care Team | Description | +--------+---------+ + + + | 11/15/ | Office | [facility] | Emmy[place]Taj[place], | Arthralgia of both | | 2019 | Visit | MEDICINE [address] | MD Petrona | hands (Primary Dx); | | | | [address] [place] | [address] [facility] | Acquired | | | | [place] [address] | [place] [address] | hypothyroidism; | | | | [phone] | [phone] | Migraine without | | | | | | aura and without | | | | | | status migrainosus, | | | | | | not intractable | +--------+---------+ + + + Social History [...] + | Blood Pressure | 90/60 | 11/15/2018 9:14 AM | | | | | PDT | | + + + + + | Pulse | 60 | 11/15/2018 9:14 AM | | | | | PDT | | + + + + + | Temperature | 36.5 C (97.7 F) | 11/15/2018 9:14 AM | | | | | PDT | | + + + + + | Respiratory Rate | 16 | 11/15/2018 9:14 AM | | | | | PDT | | + + + + + | Oxygen Saturation | 97% | 11/15/2018 9:14 AM | | | | | PDT | | + + + + + | Inhaled Oxygen | - | - | | | Concentration | | | | + + + + + | Weight | 90.9 kg (200 lb 6.4 | 11/15/2018 9:14 AM | | | | oz) | PDT | | + + + + + | Height | 172.7 cm (5' 8") | 11/15/2018 9:14 AM | | | | | PDT | | + + + + + | Body Mass Index | 30.47 | 11/15/2018 9:14 AM | | | | | PDT | | + + + + + documented in this encounter Progress Notes Petrona Thapa MD - 11/15/2018 9:30 AM PDTFormatting of this note might be d ifferent from the original. CHIEF COMPLAINT Chief Complaint Patient presents with Medication Follow-up Referral Rheumotologist ER Follow-up HPI Belinda Meehan is a 58 y.o. y/o female who presents today for several issues: She is complaining of joint pains in the small joints of her hands bilaterally especially i n the metacarpophalangeal joints in her first and second fingers on both hands. No severe s welling or redness. She does not remember whether she was diagnosed with rheumatoid arthrit is or not in the past. There is a note in her chart from a few years ago that she may have been diagnosed with the same. No trauma recently. She also has history of hypothyroidism, taking levothyroxine. She is due to have her TSH l evel checked. She complains of migraine headaches that are bothersome and not sufficiently controlled wit h current regimen. No focal neurological symptoms. REVIEW OF SYSTEMS Review of Systems Constitutional: Positive for fatigue. HENT: Negative. Eyes: Negative. Respiratory: Negative. Cardiovascular: Negative. Gastrointestinal: Negative. Genitourinary: Negative. Musculoskeletal: Positive for myalgias. Skin: Negative. Neurological: Positive for headaches. Psychiatric/Behavioral: Negative. PAST MEDICAL HISTORY Past Medical History: Diagnosis Date Anemia Anxiety Arthritis Atypical chest pain Benign essential hypertension Blind left eye Cervical radiculopathy Chronic bilateral low back pain with left-sided sciatica Chronic low back pain 01/04/2015 Chronic neck pain 01/04/2015 Chronic pain Chronic venous insufficiency Coccydynia Common migraine COPD (chronic obstructive pulmonary disease) ([facility]) Depression Diarrhea Dumping syndrome Fall at home Fatigue fracture of vertebra Fibromyalgia Full dentures GERD (gastroesophageal reflux disease) Glaucoma Hyperparathyroidism ([facility]) Hypothyroidism IBS (irritable bowel syndrome) Idiopathic scoliosis Leg edema Low back pain Lumbar postlaminectomy syndrome Lumbar radiculopathy primarily right 01/04/2015 Meniere syndrome Migraine with aura Migraines Muscle cramping Muscle spasm Myalgia Nausea Nonalcoholic hepatosteatosis Obesity Opioid dependence ([facility]) Orthostatic hypotension OLIVER (obstructive sleep apnea) Osteoarthritis, generalized Osteopenia Osteoporosis Palpitations Peripheral neuropathy Rheumatoid arthritis ([facility]) Right arm pain 01/04/2015 RLS (restless [...] Last attempt to quit: 04/15/2014 Years since quittin.5 Smokeless tobacco: Never Used Tobacco comment: stopped smoking Substance and Sexual Activity Alcohol use: No Alcohol/week: 0.0 oz Drug use: No Sexual activity: Never SURGICAL HISTORY Past Surgical History: Procedure Laterality Date ADENOIDECTOMY APPENDECTOMY BREAST LUMPECTOMY Left 2002 CARPAL TUNNEL RELEASE 2001 SECTION CHOLECYSTECTOMY 2004 COLONOSCOPY N/A 12/18/2017 Procedure: COLONOSCOPY; Surgeon: Luther Brito MD; Location: [facility] MEDICAL PROCEDURE UNIT DILATION AND CURETTAGE OF UTERUS ELBOW SURGERY FINGER TRIGGER RELEASE 2003 FINGER TRIGGER RELEASE 2010 GASTRIC BYPASS SURGERY 2004 HYSTERECTOMY 05/14/1980 JOINT REPLACEMENT Bilateral 2007 2008 KNEE ARTHROSCOPY 2005 LAPAROSCOPY 01/27/2015 LAPAROTOMY 2008 ROTATOR CUFF REPAIR 2005 SPINE SURGERY TONSILLECTOMY 1964 UPPER GASTROINTESTINAL ENDOSCOPY N/A 12/18/2017 Procedure: EGD; Surgeon: Luther Brito MD; Location: [facility] MEDICAL PROCEDURE UNIT CURRENT MEDICATIONS Current Outpatient [...] the muscle once as needed for Anaphylaxis. fluticasone (FLONASE) 50 mcg/nasal spray 1 spray by Nasal route 2 times daily. 9.9 mL 5 furosemide (LASIX) 80 mg tablet take 1 tablet by mouth twice a day 180 tablet 2 gabapentin (NEURONTIN) 300 mg capsule take 3 capsules by mouth three times a day 270 ca psule 3 HYDROcodone-acetaminophen (NORCO) 10-325 mg per tablet [...] needed fo r dizziness 90 tablet 0 metoprolol tartrate (LOPRESSOR) 25 mg tablet take [...] if needed 120 tablet 1 SUMAtriptan (IMITREX) 50 mg tablet Take 1 tablet by [...] 5 TIMES A WEEK 25 tablet 5 zinc sulfate 220 mg capsule Take 1 capsule by mouth Daily. 30 capsule 1 zoledronic acid (RECLAST) 5 mg/100 mL SOLN Inject 5 mg into the vein once. YEARLY Current Facility-Administered Medications Medication Dose Route Frequency Provider Last Rate Last Dose cyanocobalamin (VITAMIN B-12) injection 1,000 mcg 1,000 mcg Intramuscular Q30 Days Morelia Thapa MD 1,000 mcg at 11/15/18 0945 ALLERGIES Allergies Allergen Reactions Ensure Diarrhea Food Diarrhea Lactose Codeine Sulfate Nausea Only Levofloxacin Hives, Itching and Rash Butalbital Ropinirole Amitriptyline Hcl Other (See Comments) Confused and questionable for seizures Zveebllhgg-Vswp-Oypzvlnx Hives and Rash Cephalexin Hives Ciprofloxacin Hives and Rash Clarithromycin Hives and Rash Clindamycin Hcl Hives and Rash Doxycycline Rash Duloxetine Other (See Comments) Migraines and nausea Ketorolac Hives Levofloxacin Hives and Rash Morphine Swelling Penicillins Hives and Rash Ropinirole Hcl Hives Sulfamethoxazole-Trimethoprim Hives and Rash Tramadol Hcl Nausea Only PHYSICAL EXAM VITAL SIGNS: BP 90/60 | Pulse 60 | Temp 36.5 C (97.7 F) (Temporal) | Resp 16 | Ht 1 .727 m (5' 8") | Wt 90.9 kg (200 lb 6.4 oz) | LMP (LMP Unknown) | SpO2 97% | Breastfeed ing? No | BMI 30.47 kg/m Constitutional: Well developed, Well nourished, No acute distress, Pleasant female. HENT: Normocephalic, Atraumatic, Bilateral external ears normal, Oropharynx with no erythma , No oral exudates, Nose normal. Eyes: PERRLA, EOMI, Conjunctiva normal, No discharge. Neck: Normal range of motion, No tenderness, Supple. Lymphatic: No lymphadenopathy noted. Cardiovascular: Regular rate & rhythm, No murmurs, No rubs, No gallops. No lower extremitie s edema. Thorax & Lungs: Normal chest, No respiratory distress, No crackles, wheezing, or rubs. Skin: Warm, Dry, No erythema, No rash. Musculoskeletal: Good range of motion in all major joints. No redness or swelling in her MC P joints. Neurologic: Alert & oriented x 3, Normal motor function, Normal sensory function, No focal deficits noted. Psychiatric: Affect normal, Judgment normal, Mood normal. ASSESSMENT & PLAN 1. Arthralgia of both hands - Comprehensive Metabolic Panel; Future - Sedimentation Rate; Future - C-Reactive Protein; Future - Uric Acid; Future - Rheumatoid Factor, Quant; Future - SANIA Profile, Reflex; Future 2. Acquired hypothyroidism - TSH; Future 3. Migraine without aura and without status migrainosus, not intractable - Increase SUMAtriptan (IMITREX) 50 mg tablet; Take 1 tablet by mouth as needed for Migrain e. Take 1 tab by mouth on on-set of Migraine, may repeat in 2 hours if needed. Max 2 tabs/ 2 4 hours Dispense: 12 tablet; Refill: 5 FOLLOW-UP No follow-ups on file. Note: Parts of this documentwere created using Conjure speech recognition software. As a r esult, there may be unintended word spelling errors. Every attempt was made to correct the dictation. documente d in this encounter Plan of Treatment +--------+---------+ + + + | Date | Type | Specialty | Care Team | Description | +--------+---------+ + + + | 12/20/ | Office | Audiology | Elisabet Munson MS | | | 2019 | Visit | | [facility] [address] | | | | | | [place] | | | | | | [place] [address] | | | | | | [phone] | | | | | | | | +--------+---------+ + + + | 12/20/ | Office | Otolaryngology | Ulysses Genao MD | | | 2019 | Visit | | [address] [place] | | | | | | [address] [place] [place], | | | | | | [place] [address] | | | | | | [phone] | | | | | | | | +--------+---------+ + + + | 02/15/ | Office | Internal Medicine | Alanis, | | | 2019 | Visit | | MD [place] | | | | | | [address] [place] | | | | | | [place] [address] | | | | | | [phone] | | | | | | | | +--------+---------+ + + + documented as of this encounter Results TSH (11/15/2018 9:59 AM PDT) + +-------+ + + + | Component | Value | Ref Range | Performed | Pathologist | | | | | At | Signature | + +-------+ + + + | TSH | 2.40 | 0.55 - 4.78 | [facility] | | | | | uIU/mL | [facility] | | | | [...] + | [facility] | [address] | [place] | [phone] | | [facility] | | [address] | | | - LABORATORY | | | | + + + + + SANIA Profile, Reflex (11/15/2018 9:59 AM PDT) + + + + + + | Component | Value | Ref Range | Performed | Pathologist | | | | | At | Signature | + + + + + + | SANIA Screen, | Negative | Negative | [facility]FERENCE | | | Qual | | | LAB [facility] | | | | | | - [facility] | | + + + + + + | C ANCA | <1:20 | Neg:<1:20 titer | REFERENCE | | | | | | LAB [facility] | | | | | | - [facility] | | + + + + + + | P ANCA | <1:20Comment: The | Neg:<1:20 titer | REFERENCE | | | | presence of positive | | LAB [facility] | | | | fluorescence exhibiting | | - [facility] | | | | P-ANCA or C-ANCApatterns | | | | | | alone is not specific | | | | | | for the diagnosis of | | | | | | Joseph'sGranulomatosis | | | | | | (WG) or microscopic | | | | | | polyangiitis. Decisions | | | | | | abouttreatment should | | | | | | not be based solely on | | | | | | ANCA IFA results. | | | | | | TheInternational ANCA | | | | | | Group Consensus | | | | | | recommends follow up | | | | | | testing ofpositive sera | | | | | | with both MS-3 and | | | | | | MPO-ANCA enzyme | | | | | | immunoassays. Asmany as | | | | | | 5% serum samples are | | | | | | positive only by | | | | | | EIA.Ref. AM J Clin | | | | | | Pathol 1999;[id number]:[id number]. | | | | + + + + + + | Atypical | <1:20Comment: The | Neg:<1:20 titer | REFERENCE | | | pANCA | atypical pANCA pattern | | LAB [facility] | | | | has been observed in a | | - [facility] | | | | significantpercentage of | | | | | | patients with | | | | | | ulcerative colitis, | | | | | | primary | | | | | | sclerosingcholangitis | | | | | | and autoimmune | | | | | | hepatitis. | | | | + + + + + + | Myeloperoxi | <9.0 | 0.0 - 9.0 U/mL | REFERENCE | | | dase | | | LAB [facility] | | | Antibody | | | - BKR | | + + + + + + | Proteinase | <3.5 | 0.0 - 3.5 U/mL | REFERENCE | | | 3 Antibody | | | LAB [facility] | | | | | | - BKR | | + + + + + + + + | Specimen | + + | Blood | + + + + + | Narrative | Performed At | + + + | Performed at: 01 - [facility] [address], | REFERENCE LAB | | [place], [place] [id number] Metal Box Maker: Manish Chin MD, Phone: | [employer] | | [phone] Performed at: - [facility] [address] | | | [place], [place] [address] Metal Box Maker: Jeannine Mendoza MD, | | | Phone: [phone] | | + + + + + + + + | Performing | Address | City/State/Zipcode | Phone Number | | Organization | | | | + + + + + | REFERENCE LAB | [address] | [place], [place] | [phone] | | [facility] | [facility] | [address] | | + + + + + Rheumatoid Factor, Quant (11/15/2018 9:59 AM PDT) + +-------+ + + + | Component | Value | Ref Range | Performed | Pathologist | | | | | At | Signature | + +-------+ + + + | RHEUMATOID | <10.0 | 0.0 - 13.9 | REFERENCE | | | FACTOR | | IU/mL | LAB [facility] | | | | | | - [facility] | | + +-------+ + + + + + | Specimen | + + | Blood | + + + + + | Narrative | Performed At | + + + | Performed at: 01 - [facility] [address], | REFERENCE LAB | | [place], [place] [id number] Metal Box Maker: Bandar Gan MD, Phone: | [facility] | | [phone] | | + + + + + + + + | Performing | Address | City/State/Zipcode | Phone Number | | Organization | | | | + + + + + | REFERENCE LAB | [address] | [place], [place] | [phone] | | [facility] | [place] | [address] | | + + + + + Uric Acid (11/15/2018 9:59 AM PDT) + +-------+ + + + | Component | Value | Ref Range | Performed | Pathologist | | | | | At | Signature | + +-------+ + + + | Uric Acid | 5.4 | 3.1 - 7.8 mg/dL | [facility] | | | | | | ST. [...] + | [facility] | [address] | [place] | [phone] | | [facility] | | [address] | | | - LABORATORY | | | | + + + + + C-Reactive Protein (11/15/2018 9:59 AM PDT) + +-------+ + + + | Component | Value | Ref Range | Performed | Pathologist | | | | | At | Signature | + +-------+ + + + | CRP | <4.00 | <10.00 mg/L | [facility] | | | | | | [facility] | | | | | | [...] | + + + + + | [facility] | [address] | [place] | [phone] | | [facility] | | [address] | | | - LABORATORY | | | | + + + + + Sedimentation Rate (11/15/2018 9:59 AM PDT) + +-------+ + + + | Component | Value | Ref Range | Performed | Pathologist | | | | | At | Signature | + +-------+ + + + | Erythrocyte | 4 | <30 mm/hr | [facility] | | | | | | [facility] | | | [facility]imentati | | [...] [address] | [place] | [phone] | | [facility] | | [address] | | | - LABORATORY | | | | + + + + + Comprehensive Metabolic Panel (11/15/2018 9:59 AM PDT) + + + + + + | Component | Value | Ref Range | Performed | Pathologist | | | | | At | Signature | + + + + + + | Na | 139 | 136 - 145 | [facility] | | | | | mmol/L | [facility] | | [facility] | | | MEDICAL | | | | | | CENTER - | | | | | | LABORATORY | | + + + + + + | K | 3.8 | 3.4 - 5.1 | [facility] | | | | | mmol/L | [facility] | | | | | | MEDICAL | | | | | | CENTER - | | | | | | LABORATORY | | + + + + + + | Cl | 106 | 98 - 107 mmol/L | [facility] | | | | | | [facility] | | | | | | MEDICAL | | | | | | CENTER - | | | | | | LABORATORY | | + + + + + + | CO2 | 28 | 20 - 31 mmol/L | [facility] | | | | | | [facility] | | [facility] | | | MEDICAL | | | | | | CENTER - | | | | | | LABORATORY | | + + + + + + | Anion Gap | 5 | 3 - 16 mmol/L | [facility] | | | | | | [facility] | | | | | | MEDICAL | | | | | | CENTER - | | | | | | LABORATORY | | + + + + + + | Glucose | 95 | 60 - 106 mg/dL | [facility] | | | | | | [facility] | | | | | | MEDICAL | | | | | | CENTER - | | | | | | LABORATORY | | + + + + + + | BUN | 11 | 9 - 23 mg/dL | [facility] | | | | | | [facility] | | | | | | MEDICAL | | | | | | CENTER - | | | | | | LABORATORY | | + + + + + + | Creatinine | 0.82 | 0.55 - 1.02 | [facility] | | | | | mg/dL | [facility] | | | | | | MEDICAL | | | | | | CENTER - | | | | | | LABORATORY | | + + + + + + | eGFR if not | >60Comment: GLOMERULAR | >=60 | [facility] | | | | FILTRATION | mL/min/1.73m2 | [facility] | | | EMIRATI | RATE,ESTIMATED | | MEDICAL | | | | mL/min/1.13a7Vqsr than | | CENTER - | | [...] + + + + | Calcium | 9.2 | 8.7 - 10.4 | [facility] | | | | | mg/dL | [facility] | | | | | | MEDICAL | | | | | | CENTER - | | | | | | LABORATORY | | + + + + + + | Albumin | 4.3 | 3.2 - 4.8 g/dL | [facility] [...] + + + + | AST | 58 (H) | 0 - 34 U/L | [facility] | | | | | | [facility] | | | | | | MEDICAL | | | | | | CENTER - | | | | | | LABORATORY | | + + + + + + | ALT | 42 | 10 - 49 U/L | [facility] | | | | | | [facility] | | | | | | MEDICAL | | | | | | CENTER - | | | | | | LABORATORY | | + + + + + + | Alkaline | 93 | 46 - 116 U/L | [facility] | | | Phosphatase | | | [facility] | | | | | | MEDICAL | | | | | | CENTER - | | | | | | LABORATORY | | + + + + + + | Globulin | 2.2 | 2.1 - 3.8 g/dL | [facility] | | | | | | [facility] | | | | | | MEDICAL | | | | | | CENTER - | | | | | | LABORATORY | | + + + + + + | Albumin/Flor | 2.0 (H) | 0.8 - 1.9 | [facility] | | | bulin Ratio | | | [facility] | | | | | | MEDICAL | | | | | | CENTER - | | | | | | LABORATORY | | + + + + + + | BUN/Creatin | 13.4 | | [facility] | | | ine [...] | + + + + + | [facility] | [address] | [place], [place] | [phone] | | [facility] | | [address] | | | - LABORATORY | | | | + + + + + documented in this encounter Visit Diagnoses + + | Diagnosis | + + | Arthralgia of both hands - Primary | + + | Acquired hypothyroidism Unspecified hypothyroidism | + + | Migraine without aura [...] | | | | First dose on [facility] 10/15/17 at 1215 | | | [...]
--- OUTSIDE RECORDS SUMMARY | ~2019-11-17 | XMS | Encounter Summary ---
Demographics + + + | Address | [address] | | | [place] [address] | + + + | Home Phone [...] Team Providers + +------+ + | Care Data Entry Name | Role | Phone | + [...] | Pain | Diagnoses | [facility], | [place], | | | | Management | LBP (low | NIHARIKA Jean | Lukasz Rhodes, PhD | | | | | back pain) | [address] | [address] | | | | | DJD | [address] | Ave | | | | | (degenerativ | [place], [place] | [place] | | | | | e joint | [address] | [address] | | | | | disease) of | | Phone: | | | | | knee Knee | | [phone] | | | | | pain Major | | Fax: | | | | | depressive | | [phone] | | | | | disorder, | [...] 04/28/ | Office | [facility] | Lukasz Charles, | Major Depressive | | 2007 | Visit | [address] | PhD [address] | Disorder, Recurrent | | | | Mailcode: [id number] | [place], [place] | Episode, Mild (HCC); | | | | [place] [facility] | [address] | LBP (Low Back | | | | and Healing, | [phone] | Pain); Migraine | | | | | | Headache | | | | Floor [place], [place] | | | | | | [address] | | | | | | [phone] | | | +--------+---------+ + + + [...] is planning to have back surgery the or 2nd week of May. We discussed [...] her son's girlfriend works at a local motel and she may be able to use the hot tub there. Ms. Meehan has ongoing depression and frustration. She is not suicidal. She is strugglin g with diffuse pain and poor sleep. She is optimistic about surgery and she has some good p lans for her surgical recovery period. She is scheduled to come here after surgery. Diagnosis: Harbinger I: 1. (296.31) Major depressive disorder, recurrent, mild. 2. (309.24) Adjustment disorder with anxiety. 3. 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 Harbinger II: Deferred Harbinger III: abdominal pain, migraine headache, low back pain. Harbinger IV: low finances Harbinger V: GAF 55-60 Plan: return with next medical follow-up appointment. Check mood, pain, surgical recovery , relaxation, activity, distraction, eating. Ask about headaches, fainting, Thanksgiving. Continue cognitive/behavioral therapy. Total time spent with patient was approximately 45 minutes. LUKASZ CHARLES PHD [facility] [address] [facility] [place] [address] documented in this encount er Plan of Treatment + + +--------+ + + | Name | Type | Priori | Associated Diagnoses | Order Schedule | | | | ty | | | + + +--------+ + + | [facility], | Procedures | Routin | Major Depressive | Ordered: 04/28/2008 | | OFFICE ([id number]) | | e | Disorder, Recurrent | [...]
--- OUTSIDE RECORDS SUMMARY | ~2019-11-17 | XMS | Encounter Summary ---
Demographics + + + | Address | [address] | | | [place] [address] | + + + | Home Phone [...] Team Providers + +------+ + | Care Cash Applications Representative Name | Role | Phone | + +------+ + | Sulaiman Carrera MD | PCP | | + +------+ + Encounter Details +--------+ + + + + | Date | Type | Department | Care Team | Description | +--------+ + + + + | 07/30/ | Ancillary | Registration 3181 | Beto Meeks MD | | | 2006 | Registratio | [facility] | [address] | | | | n | [place] Mailcode: [id number] | [place], [place] | | | | | [place], [place] | [address] | | | | | [address] | [phone] | | | | | [phone] | | | +--------+ + + + [...] | + +--------+ + + + | SLIDE REVIEW | Routin | 07/30/2006 | | Results for this | | | e | 4:00 PM | | procedure are in the | | | | PST | | results section. | + +--------+ + + + | VITAMIN D, | Routin | 07/30/2006 | | Results for this | | 25-HYDROXY, SERUM | e | 4:00 PM | | procedure are in the | | | | PST | | results section. | + +--------+ + + + | COMPLETE METABOLIC | Routin | 07/30/2006 | | Results for this | | SET | e | 4:00 PM | | procedure are in the | | (NA,K,CL,CO2,BUN,CRE | | PST | | results section. | | AT,GLUC,CA,AST,ALT,B | | | | | | DEYA TOTAL,ALK | | | | | | PHOS,ALB,PROT TOTAL) | | | | | + +--------+ + + + | CBC ONLY | Routin | 07/30/2006 | | Results for this | | | e | 4:00 PM | | procedure are in the | | | | PST | | results section. | + +--------+ + + + | PTH, SERUM | Routin | 07/30/2006 | | Results for this | | | e | 4:00 PM | | procedure are in the | | | | PST | | results section. | + +--------+ + + + | VITAMIN B-12 | Routin | 07/30/2006 | | Results for this | | | e | 4:00 PM | | procedure are in the | | | | PST | | results section. | + +--------+ + + + | IRON AND TIBC, SERUM | Routin | 07/30/2006 | | Results for this | | | e | 4:00 PM | | procedure are in the | | | | PST | | results section. | + +--------+ + + + documented in this encounter Results PTH, SERUM (07/30/2006 4:00 PM PST) + + + + + + | Component | Value | Ref Range | Performed | Pathologist | | | | | At | Signature | + + + + + + | PTH, SERUM | 48.0Comment: Test | 15.0 - 75.0 | | | | | performed by [employer] | pg/mL | | | | | [facility]. | | | | + + + + + + + + | Specimen | + + | | + + + + + + + | Performing | Address | City/State/Zipcode | Phone Number | | Organization | | | | + + + + + | [facility] | [address] | [place] [address] | | | LABORATORY | | | | + + + + + VITAMIN D, 25-HYDROXY (07/30/2006 4:00 PM PST) + + + + + + | Component | Value | Ref Range | Performed | Pathologist | | | | | At | Signature | + + + + + + | VITAMIN D | 31Comment: TEST | 20 - 57 ng/mL | [...] D2, | | | | | | 25-Hydroxy.The above | | | | | | test was performed at: | | | | | | [place] | | | | | | [facility] | | | | | | [address] | | | | | | [email or web address] | | | | + + + + + + + + | Specimen | + + | | + + + + + + + | Performing | Address | City/State/Zipcode | Phone Number | | Organization | | | | + + + + + | [facility] | [address] | [place], [place] | | | [facility] | | [address] | | + + + + + IRON SERUM AND TIBC (07/30/2006 4:00 PM PST) + +---------+ + + + | Component | Value | Ref Range | Performed | Pathologist | | | | | At | Signature | + +---------+ + + + | IRON SERUM | 61 | 40 - 150 ug/dL | | | + +---------+ + + + | IRON BIND | 465 (H) | 225 - 410 ug/dL | | | | CAP SERUM | | | | | + +---------+ + + + | % | 13 (L) | 20 - 50 % | | | | SATURATION | | | | | | TRANSFERRIN | | | | | | , SERUM | | | | | + +---------+ + + + + + | Specimen | + + | | + + + + + | Narrative | Performed At | + + + | Iron and TIBC, Serum Test performed by [facility] | | | [facility] [email or web address]. | | + + + + + + + + | Performing | Address | City/State/Zipcode | Phone Number | | Organization | | | | + + + + + | [facility] | [address] | [place] [address] | | | LABORATORY | | | | + + + + + VITAMIN B-12, SERUM (07/30/2006 4:00 PM PST) + + + + + + | Component | Value | Ref Range | Performed | Pathologist | | | | | At | Signature | + + + + + + | VITAMIN | 1278 (H)Comment: | 200 - 950 pg/ml | | | | B12, SERUM | Test performed by [place] | | | | | | [facility] | | | | | | Laboratories. | | | | + + + + + + + + | Specimen | + + | | + + + + + + + | Performing | Address | City/State/Zipcode | Phone Number | | Organization | | | | + + + + + | [facility] | [address] | [place] [address] | | | LABORATORY | | | | + + + + + SLIDE REVIEW (07/30/2006 4:00 PM PST) + + | Specimen | + + | | + + + + + | Narrative | Performed At | + + + | * Corrected 07/30/06 18:23: SUSHIL COMMENTS, prev report: Not | [facility] | | reported | DEPARTMENT OF | | | PATHOLOGY | + + + + + + + + | Performing | Address | City/State/Zipcode | Phone Number | | Organization | | | | + + + + + | [facility] DEPARTMENT OF | [address] | [place] [address] | | | PATHOLOGY | [address] | | | + + + + + | [facility] DEPARTMENT OF | [address] | [place] [address] | | | PATHOLOGY | [address] | | | + + + + + CBC ONLY WITH PLATELET (07/30/2006 4:00 PM PST) + + + + + + | Component | Value | Ref Range | Performed | Pathologist | | | | | At | Signature | + + + + + + | WHITE CELL | 8.9 | 4.4 - 11.0 K/cu | [facility] | | | COUNT | | mm | DEPARTMENT | | | | | | OF | | | | | | PATHOLOGY | | + + + + + + | RED CELL | 4.81 | 4.00 - 5.20 | [facility] | | | COUNT | | M/cu mm | DEPARTMENT | | | | | | OF | | | | | | PATHOLOGY | | + + + + + + | HEMOGLOBIN | 15.6 | 12.0 - 16.0 | [facility] | | | | | g/dL | DEPARTMENT | | | | | | OF | | | | | | PATHOLOGY | | + + + + + + | HEMATOCRIT | 44.8 | 36.0 - 46.0 % | [facility] | | | | | | DEPARTMENT | | | | | | OF | | | | | | PATHOLOGY | | + + + + + + | MCV | 93.0 | 80.0 - 96.0 fL | [facility] | | | | | | DEPARTMENT | | | | | | OF | | | | | | PATHOLOGY | | + + + + + + | MCHC | 34.8 | 33.4 - 35.5 | [facility] | | | | | g/dL | DEPARTMENT | | | | | | OF | | | | | | PATHOLOGY | | + + + + + + | RDW | 11.8 | 11.5 - 15.0 % | [facility] | | | | | | DEPARTMENT | | | | | | OF | | | | | | PATHOLOGY | | + + + + + + | PLATELET | 344 | 150 - 400 K/cu | [facility] | | | COUNT | | mm | DEPARTMENT | | | | | | OF | | | | | | PATHOLOGY | | + + + + + + | PLATELET | Final Platelet Report. | | [facility] | | | COMMENTS | | | DEPARTMENT | | | | | | OF | | | | | | PATHOLOGY | | + + + + + + + + | Specimen | + + | | + + + + + | Narrative | Performed At | + + + | * Corrected 07/30/06 18:23: SUSHIL MCKEON, prev report: Not | [facility] | | reported | DEPARTMENT OF | | | PATHOLOGY | + + + + + + + + | Performing | Address | City/State/Zipcode | Phone Number | | Organization | | | | + + + + + | [facility] DEPARTMENT OF | [address] | [place] [address] | | | PATHOLOGY | [address] | | | + + + + + | [facility] | [facility] [address] | [place] [address] | | | PATHOLOGY | [address] | | | + + + + + COMP METABOLIC SET (07/30/2006 4:00 PM PST) + +---------+ + + + [...] +---------+ + + + | CALCIUM, | 9.3 | 8.5 - 10.5 | [facility] | | | PLASMA | | mg/dL | DEPARTMENT | | | (LAB) | | | OF | | | | | | PATHOLOGY | | + +---------+ + + + | BILIRUBIN | 0.5 | 0.3 - 1.2 mg/dL | [facility] | | | TOTAL | | | DEPARTMENT | | | | | | OF | | | | | | PATHOLOGY | | + +---------+ + + + | ALK PHOS | 110 (H) | 42 - 98 U/L | [facility] | | | | | | DEPARTMENT | | | | | | OF | | | | | | PATHOLOGY | | + +---------+ + + + | AST(SGOT) | 25 | 15 - 41 U/L | [facility] | | | | | | DEPARTMENT | | | | | | OF | | | | | | PATHOLOGY | | + +---------+ + + + | SODIUM, | 139 | 136 - 145 | [facility] | | | PLASMA | | mmol/L | DEPARTMENT | | | (LAB) | | | OF | | | | | | PATHOLOGY | | + +---------+ + + + | POTASSIUM, | 3.7 | 3.5 - 5.1 | [facility] | [...] + + + | ALT (SGPT) | 21 | 13 - 48 U/L | [facility] | | | | | | DEPARTMENT | | | | | | OF | | | | | | PATHOLOGY | | + +---------+ + + + + + | Specimen | + + | | + + + + + | Narrative | Performed At | + + + | [id number] Estimated GFR > 60 mL/min/1.73 sq m if non- | [facility] | | [id number] Estimated GFR > 60 mL/min/1.73 sq m [...] | + + + + + | [facility] | [address] | [place] [address] | | | PATHOLOGY | [address] | | | + + + + + | [facility] | [address] | [place] [address] | | | PATHOLOGY | [address] | | | + + + + + documented in this encounter Visit Diagnoses Not on filedocumented in this encounter"
--- OUTSIDE RECORDS SUMMARY | ~2019-11-17 | XMS | Encounter Summary ---
Demographics + + + | Address | [address] | | | [place] [address] | + + + | Home Phone [...] Providers + +------+ + | Care Assembler Wire Mesh Gate Name | Role | Phone | + +------+ + | Petrona Thapa | PCP | | | MD | | | + +------+ + Reason for Visit + + + | Reason | Comments | + + + | Hip Pain | | + + + Encounter Details +--------+ + + + + | Date | Type | Department | Care Team | Description | +--------+ + + + + | 03/27/ | Telephone | [facility] | Alanis, | Hip Pain | | 2017 | | MEDICINE [address] [place] [address] | MD Petrona | | | | | [facility] | [address] [place] [address] | | | | | [place] [address] | [place] [address] | | | | | [phone] | [phone] | | | | | | | [...] | [facility] [address] | | | | | | [address] | | | | | | [place] [address] | | | | | | [phone] | | | | | | | | +--------+---------+ + + + | 12/20/ | Office | Otolaryngology | Ulysses Genao MD | | | 2019 | Visit | | [address] | | | | | | [address] [place], | | | | | | [place] [address] | | | | | | [phone] | | | | | | | | +--------+---------+ + + + | 02/15/ | Office | Internal Medicine | Alanis, | | | 2019 | Visit | | MD Petrona | | | | | | [address] | | | | | | [place] [address] | | | | | | [phone] | | | | | | | [...]
--- OUTSIDE RECORDS SUMMARY | ~2019-11-17 | XMS | Encounter Summary ---
Demographics + + + | Address | [address] | | | [place] [address] | + + + | Home Phone [...] Team Providers + +------+ + | Care Flame Cutting Supervisor Name | Role | Phone | + +------+ + PCP | Unavailable | + +------+ + Encounter Details +--------+ + + + + | Date | Type | Department | Care Team | Description | +--------+ + + + + | 07/28/ | Orders Only | | Lab, Vascular | | | 2004 | | | [...] | + +--------+ + + + | VASCULAR FLOW | | 07/28/2003 | | | | IMAGING, NONCARDIAC | | | | | | - VASC LAB | | | | | + +--------+ + + + documented in this encounter Visit Diagnoses Not on filedocumented in this encounter"
--- OUTSIDE RECORDS SUMMARY | ~2019-11-17 | XMS | Encounter Summary ---
Demographics + + + | Address | [address] | | | [place] [address] | + + + | Home Phone [...] Team Providers + +------+ + | Care Television Picture Tube Rebuilder Name | Role | Phone | + +------+ + | Pedrito Gutierrez MD | PCP | | + +------+ + Reason for Visit + + + | Reason | Comments | + + + | Follow-up encounter | | + + + Office Visit - E/M Services (Routine) +--------+--------+ + + + + | Status | Reason | Specialty | Diagnoses / | Referred By | Referred To | | | | | Procedures | Contact | Contact | +--------+--------+ + + + + | Closed | | Surgery | Diagnoses | Brenda, | Lorin, | | | | | Morbid | Pedrito Maier, | MD Chris | | | | | obesity | MD | [address] | | | | | (HCC) | [place] | [address] | | | | | | FAMILY | [address] [place], | | | | | | MEDICINE | [place] | | | | | | [address] | [address] | | | | | | [place] [place] | Phone: | | | | | | [place], | [phone] | | | | | | [place] [address] | Fax: | | | | | | Phone: | [phone] | | | | | | [phone] | | | | | | | Fax: | | | | | | | [phone] | | +--------+--------+ + + + + Encounter Details +--------+---------+ + + + | Date | Type | Department | Care Team | Description | +--------+---------+ + + + | 07/01/ | Office | Dig[facility]ive Health | Chris Padgett, | Status Post | | 2007 | Visit | Center [address] | [address] | Bariatric Surgery | | | | Bethanie Mailcode: CH4S | [address] | (Primary Dx) | | | | [place] [facility] | [place], [place] | | | | | and Healing, | [address] | | | | | [facility] | [phone] | | | | | Floor [place], [place] | | | | | | [address] | | | | | | [phone] | | | +--------+---------+ + + + [...] + + + | Blood Pressure | 124/54 | 07/01/2007 1:18 PM | | | | | PST | | + + + + + | Pulse | 72 | 07/01/2007 1:18 PM | | | | | PST | | + + + + + | Temperature | 37.5 C (99.5 F) | 07/01/2007 1:18 PM | | | | | PST | | + + + + + | Respiratory Rate | 16 | 07/01/2007 1:18 PM | | | | | PST | | + + + + + | Oxygen Saturation | - | - | | + + + + + | Inhaled Oxygen | - | - | | | Concentration | | | | + + + + + | Weight | 85.5 kg (188 lb 6.4 | 07/01/2007 1:18 PM | | | | oz) | PST | | + + + + + | Height | - | - | | + + + + + | Body Mass Index | 27.82 | 06/28/2007 8:32 AM | | | | | PST | | + + + + + documented in this encounter Progress Notes Kenisha Melton - 07/01/2007 5:00 PM PSTMrsYudy Christianson Chris Tobar - 07/01/2007 2:29 PM PSTMrsYudy Meehan ret urns for her 3.5 year bariatric followup after gastric bypass surgery. She is being followe d with [facility] providers for metabolic syndrome and hypothyroidism - Dr. Meeks, emotional issue s - Dr. Lukasz Ogden, and her PCP in [place]. She has sx of stress urinary incontinence an d has not been able to obtain a local referral from Dr. Gutierrez. She would like to see a ur ologist for stress incontinence, no sx current for UTI. She has abdominal pain, dumping onc e per week. She completed her EGD and colonoscopy, rectal polyp removed. She has lost over 270 pounds since her weight loss surgery in 2003. Her labs were drawn over approx one year ago. She is doing well overall except for severe pneumonia recently, treated with oral abx at home. PE: Alert and oriented Abd: Healed incisions, no erythema or hernia A/P: Pt. Doing well overall 3.5 years post op gastric bypass. She has residual medical is sues being treated. She would like a urology or [facility] referral as appropriate. Labs ordered. See in [address] Jose L Padgett. Established, 20 minutesElectronically sign ed by Chris Padgett at 07/01/2007 2:29 PM PSTdocumented in this encounter Plan of Treatment Not on filedocumented as of this encounter Results VITAMIN D, 25-HYDROXY (07/01/2007 [...] | | | | | ng/mLPerformed by [facility] | | | | | | [facility],[address] | | | | | | [place] [address] | | | | | | [phone] | | | | | | Sincere [...] [facility] | [address] | [place], [place] | | | [facility] | | [address] | | + + + + + [...] | pg/mL | | | | | [facility] Laboratory. | | | | + + + + + + + + | Specimen | + + | | + + + + + + + | Performing | Address | City/State/Zipcode | Phone Number | | Organization | | | | + + + + + | [facility] | [address] | [place] [address] | | | LABORATORY | | | [...] RLB ([facility]) | | | [facility] [place] [address] | | | [place] [address] | | + + + + + + + + | Performing | Address | City/State/Zipcode | Phone Number | | Organization | | | | + + + + + | [facility] | [address] | [place] [address] | | | LABORATORY | | | [...] [facility] ([facility]) | | | [facility] [place] [address] | | | [place] [address] | | + + + + + + + + | Performing | Address | City/State/Zipcode | Phone Number | | Organization | | | | + + + + + | [facility] | [address] | [place] [address] | | | LABORATORY | | | [...] Performed At | + + + | [address] Estimated GFR > 60 mL/min/1.73 sq m if non- | [facility] | | [address] Estimated GFR > 60 mL/min/1.73 sq m [...] | + + + + + | [facility] DEPARTMENT OF | [address] | [place] [address] | | | PATHOLOGY | [address] | | | + + + + + | [facility] DEPARTMENT OF | [address] | [place] [address] | | | PATHOLOGY | [address] [...] + + + | [facility] | [address] | [place] [address] | | | PATHOLOGY | [address] | | | + + + + + | [facility] | [address] | [place] [address] | | | PATHOLOGY | [address] | | | + + + + + documented in this encounter Visit Diagnoses + + | Diagnosis | + + | Status post bariatric surgery - Primary Bariatric surgery status | + + documented in this encounter"
--- OUTSIDE RECORDS SUMMARY | ~2019-11-17 | XMS | Encounter Summary ---
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 Diagnosis: Sussex I: 1. (296.32) Major depressive disorder, recurrent, moderate. 2. (309.24) Adjustment disorder with anxiety. 3. 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 Sussex II: Deferred Sussex III: abdominal pain, migraine headache, low back pain. Sussex IV: low finances Sussex V: GAF 50 Plan: Return in 2 weeks. Check pacing, relaxation, activity, distraction. Ask about coping with previous headache. Continue cognitive/behavioral therapy. Total time spent with patient was approximately 45 minutes. LUKASZ CHARLES [facility] [address] [facility] [place] [address] documented in this encount er Plan of Treatment + + +--------+ + + | Name | Type | Priori | Associated Diagnoses | Order Schedule | | | | ty | | | + + +--------+ + + | [facility] PSYCHOTHERPY, | Procedures | Routin | Major Depressive | Ordered: 08/12/2006 | | OFFICE (45-50) | | e | Disorder, Recurrent | | | | | | Episode, Moderate | | | | | | (HCC) Neck Pain | | | | | [...]
--- OUTSIDE RECORDS SUMMARY | ~2019-11-17 | XMS | Encounter Summary ---
Demographics + + + | Address | [address] | | | [place] [address] | + + + | Home Phone [...] Team Providers + +------+ + | Care Paralegal Legal Secretary Name | Role | Phone | + [...] | +--------+ + + + + | 05/06/ | Telephone | [facility] INTER[facility] | Alanis, | Other | | 2017 | | MEDICINE [address] [place] [address] | MD Petrona | | | | | [facility] | [address] [place] [address] | | | | | [place] [address] | [place] [address] | | | | | [phone] | [phone] | | | | | | | [...] | [facility] [address] | | | | | | [address] | | | | | | [place] [address] | | | | | | [phone] | | | | | | | | +--------+---------+ + + + | 12/20/ | Office | Otolaryngology | Ulysses Genao MD | | | 2019 | Visit | | [address] | | | | | | [address] [place], | | | | | | [place] [address] | | | | | | [phone] | | | | | | | | +--------+---------+ + + + | 02/15/ | Office | Internal Medicine | Alanis, | | | 2019 | Visit | | MD Petrona | | | | | | [address] | | | | | | [place] [address] | | | | | | [phone] | | | | | | | | +--------+---------+ + + + documented as of this encounter Visit Diagnoses Not on filedocumented in this encounter"
--- OUTSIDE RECORDS SUMMARY | ~2019-11-17 | XMS | Encounter Summary ---
Demographics + + + | Address | [address] | | | [place] [address] | + + + | Home Phone [...] Team Providers + +------+ + | Care Operations Agent Name | Role | Phone | + +------+ + | Petrona Thapa | PCP | | | MD | | | + +------+ + Encounter Details +--------+ + + + + | Date | Type | Department | Care Team | Description | +--------+ + + + + | 07/16/ | Orders Only | [facility] | Alanis, | | | 2017 | | MED CTR OP INFUSION | MD Petrona | | | | | [address] | [address] [facility] | | | | | [place], [place] | [place] [address] | | | | | [address] | [phone] | | | | | [phone] | | | +--------+ + + + [...] | | | | | [place] [address] | | | | | | [phone] | | | | | | | | +--------+---------+ + + + | 12/20/ | Office | Otolaryngology | Ulysses Genao MD | | | 2019 | Visit | | [address] | | | | | | [address] [place], | | | | | | [place] [address] | | | | | | [phone] | | | | | | | | +--------+---------+ + + + | 02/15/ | Office | Internal Medicine | Alanis, | | | 2019 | Visit | | MD Petrona | | | | | | [address] [place] | | | | | | [place] [address] | | | | | | [phone] | | | | | | | | +--------+---------+ + + + documented as of this encounter Visit Diagnoses Not on filedocumented in this encounter"
--- OUTSIDE RECORDS SUMMARY | ~2019-11-17 | XMS | Encounter Summary ---
Demographics + + + | Address | [address] | | | [place] [address] | + + + | Home Phone | | + + + | Preferred Language | Unknown | + + + | Marital Status | | + + + | Jew Affiliation | 1001 | + + + | Race | Unknown | + + + | Ethnic Group | Unknown | + + + Author + + + | Author | [facility] | | | and [place] | + + + | Organization | [facility] | | [...] Team Providers + +------+ + | Care Photographic Engineer Name | Role | Phone | + +------+ + | Petrona Thapa | PCP | | | MD | | | + +------+ + Reason for Visit + + + | Reason | Comments | + + + | Medication Prior | Sumatriptan | | Authorization | | + + + Encounter Details +--------+ + + + + | Date | Type | Department | Care Team | Description | +--------+ + + + + | 05/03/ | Telephone | [facility] | Alanis, | Medication Prior | | 2017 | | MEDICINE [address] [place] [address] | MD Petrona | Authorization | | | | [facility] | [address] [place] [address] | (Sumatriptan) | | | | [place] [address] | [place] [address] | | | | | [phone] | [phone] | | | | | | | [...] | | 2019 | Visit | | [facility] [address] | | | | | [address] | | | | | | [place] [address] | | | | | | [phone] | | | | | | | | +--------+---------+ + + + | 12/20/ | Office | Otolaryngology | Ulysses Genao MD | | | 2019 | Visit | | [address] | | | | | | [address] [place], | | | | | | [place] [address] | | | | | | [phone] | | | | | | | | +--------+---------+ + + + | 02/15/ | Office | Internal Medicine | Alanis, | | | 2019 | Visit | | MD Petrona | | | | | | [address] [place] [address] [address] | | | | | | [place] [address] | | | | | | [phone] | | | | | | | | +--------+---------+ + + + documented as of this encounter Visit Diagnoses Not on filedocumented in this encounter"
--- OUTSIDE RECORDS SUMMARY | ~2019-11-17 | XMS | Encounter Summary ---
Demographics + + + | Address | [address] | | | [place] [address] | + + + | Home Phone | | + + + | Preferred Language | Unknown | + + + | Marital Status | | + + + | Yarsanism Affiliation | 1001 | + + + [...] Team Providers + +------+ + | Care Cemetery Vault Installer Name | Role | Phone | [...] + + | 03/27/ | Telephone | [facility] | Alanis, | Hip Pain | | 2017 | | MEDICINE [address] [place] [address] | MD Petrona | | | | | [facility] | [address] [place] [address] | | | | | [place] [address] | [place] [address] | | | | | [phone] | [phone] | | | | | | | [...] | | 2019 | Visit | | [facility] [address] | | | | | | [address] [place] | | | | | | [place] [address] | | | | | | [phone] | | | | | | | | +--------+---------+ + + + | 12/20/ | Office | Otolaryngology | Ulysses Genao MD | | | 2019 | Visit | | [address] | | | | | | [address] [place], | | | | | | [place] [address] | | | | | | [phone] | | | | | | | | +--------+---------+ + + + | 02/15/ | Office | Internal Medicine | Alanis, | | | 2019 | Visit | | MD Petrona | | | | | | [address] [place] | | | | | | [place] [address] | | | | | | [phone] | | | | | | | [...]
--- OUTSIDE RECORDS SUMMARY | ~2019-11-17 | XMS | Encounter Summary ---
Demographics + + + | Address | [address] | | | [place] [address] | + + + | Home Phone [...] Providers + +------+ + | Care Project Scientist Name | Role | Phone | + +------+ + | Pedrito Gutierrez MD | PCP | | + +------+ + Encounter Details +--------+ + + + + | Date | Type | Department | Care Team | Description | +--------+ + + + + | 03/26/ | Telephone | [facility] Division of | Carlos Arreola, | | | 2005 | | Gastroenterology/Hep | [address] | | | | | atology [address] | | | | | [address] | [place] [address] | | | | | Mailcode: [id number] | [phone] | | | | | Physician's [address]armila | | | | | | [address] | | | | | | [place], [place] | | | | | | [address] | | | | | | [phone] | | | +--------+ + + + [...]
--- OUTSIDE RECORDS SUMMARY | ~2019-11-17 | XMS | Encounter Summary ---
Demographics + + + | Address | [address] | | | [place] [address] | + + + | Home Phone | | + + + | Preferred Language | Unknown | + + + | Marital Status | | + + + | Samaritan Affiliation | 1001 | + + + | Race | Unknown | + + + | Ethnic Group | Unknown | + + + Author + + + | Author | [facility] | | | and [place] | + + + | Organization | [facility] | | [...] Team Providers + +------+ + | Care Trench Shovel Operator Name | Role | Phone | + +------+ + | Petrona Thapa | PCP | | | MD | | | + +------+ + Reason for Visit +--------+ + | Reason | Comments | +--------+ + | Fever | | +--------+ + Encounter Details +--------+ + + + + | Date | Type | Department | Care Team | Description | +--------+ + + + + | 03/04/ | Telephone | [facility] | Alanis, | Fever | | 2018 | | MEDICINE [address] [place] [address] | MD Petrona | | | | | [facility] | [address] [place] [address] | | | | | [place] [address] | [place] [address] | | | | | [phone] | [phone] | | | | | | | [...] | | 2019 | Visit | | [facility] [address] | | | | | | [address] | | | | | | [place] [address] | | | | | | [phone] | | | | | | | | +--------+---------+ + + + | 12/20/ | Office | Otolaryngology | Ulysses Genao MD | | | 2019 | Visit | | [address] | | | | | | [address] [place], | | | | | | [place] [address] | | | | | | [phone] | | | | | | | | +--------+---------+ + + + | 02/15/ | Office | Internal Medicine | Alanis, | | | 2019 | Visit | | MD Petrona | | | | | | [address] | | | | | | [place] [address] | | | | | | [phone] | | | | | | | | +--------+---------+ + + + documented as of this encounter Visit Diagnoses Not on filedocumented in this encounter"
--- OUTSIDE RECORDS SUMMARY | ~2019-11-17 | XMS | Encounter Summary ---
Demographics + + + | Address | [address] | | | [place] [address] | + + + | Home Phone [...] Team Providers + +------+ + | Care Alley Cleaner Name | Role | Phone | [...] | Pain | Diagnoses | Miracle, | [place], | | | | Management | LBP (low | NIHARIKA Jean | Lukasz Rhodes, PhD | | | | | back pain) | [address] | [address] | | | | | DJD | [address] | Ave | | | | | (degenerativ | [place], [place] | [place] | | | | | e joint | [address] | [address] | | | | | disease) of | | Phone: | | | | | knee Knee | | [phone] | | | | | pain Major | | Fax: | | | | | depressive | | [phone] | | | | | disorder, | [...] Office | [facility] | Lukasz Charles, | Major Depressive | | 2007 | Visit | [address] | PhD [address] | Disorder, Recurrent | | | | Mailcode: 15P | [place], [place] | Episode, Moderate | | | | [place] [facility] | [address] | ([facility]); LBP (Low Back | | | | and Healing, | [phone] | Pain); Bilateral | | | | | | Knee Pain; | | | | Floor [place], [place] | | Adjustment Disorder | | | | [address] | | with Anxiety | | | | [phone] | | | +--------+---------+ + + + [...] frustra tion by being less active. Diagnosis: Milroy I: 1. (296.32) Major depressive disorder, recurrent, moderate. 2. (309.24) Adjustment disorder with anxiety. 3. 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 Milroy II: Deferred Milroy III: abdominal pain, migraine headache, low back pain. Milroy IV: low finances Milroy V: GAF 55-60 Plan: return with next medical follow-up appointment. Check mood, abdominal pain, relaxat ion, activity, distraction. Continue cognitive/behavioral therapy. Total time spent with patient was approximately 45 minutes. LUKASZ [facility] [address] [facility], [address] [place] [address] documented in this encount er Plan of [...]
--- OUTSIDE RECORDS SUMMARY | ~2019-11-17 | XMS | Encounter Summary ---
Demographics + + + | Address | [address] | | | [place] [address] | + + + | Home Phone [...] Team Providers + +------+ + | Care Video Production Engineer Name | Role | Phone | [...] Description | +--------+--------+ + + + | 09/21/ | Refill | [facility] | Alanis, | Medication Refill | | 2019 | | MEDICINE [address] | MD Petrona | | | | | [facility] | [address] [place] [address] | | | | | [place] [address] | [place] [address] | | | | | [phone] | [phone] | | | | | | | [...] | | 2019 | Visit | | [facility] [address] | | | | | | [address] [place] | | | | | | [place] [address] | | | | | | [phone] | | | | | | | | +--------+---------+ + + + | 12/20/ | Office | Otolaryngology | Ulysses Genao MD | | | 2019 | Visit | | [address] | | | | | | [address] [place], | | | | | | [place] [address] | | | | | | [phone] | | | | | | | | +--------+---------+ + + + | 02/15/ | Office | Internal Medicine | Alanis, | | | 2019 | Visit | | MD Petrona | | | | | | [address] [place] [address] [address] | | | | | | [place] [address] | | | | | | [phone] | | | | | | | | +--------+---------+ + + + documented as of this encounter Visit Diagnoses Not on filedocumented in this encounter"
--- OUTSIDE RECORDS SUMMARY | ~2019-11-17 | XMS | Encounter Summary ---
Demographics + + + | Address | [address] | | | [place] [address] | + + + | Home Phone [...] Team Providers + +------+ + | Care Marketing Communications Manager Name | Role | Phone | + +------+ + PCP | Unavailable | + +------+ + Encounter Details +--------+ + + + + | Date | Type | Department | Care Team | Description | +--------+ + + + + | 08/08/ | Results | Endocrinology, | Beto Meeks MD | | | 2003 | Only | Diabetes and | [address] | | | | | Clinical Nutrition | [place], [place] | | | | | [address] | [address] | | | | | Loop Mailcode: [id number] | [phone] | | | | | Outpatient Clinic | | | | | | [facility] | | | | | | [place] [address] | | | | | | [phone] | | | +--------+ + + + [...] + | VITAMIN D, | Routin | 08/08/2003 | | Results for this | | 25-HYDROXY, SERUM | e | 2:04 PM | | procedure are in the | | | | PST | | results section. | + +--------+ + + + | COMPLETE METABOLIC | Routin | 08/08/2003 | | Results for this | | SET | e | 2:04 PM | | procedure are in the | | (NA,K,CL,CO2,BUN,CRE | | PST | | results section. | | AT,GLUC,CA,AST,ALT,B | | | | | | DEYA TOTAL,ALK | | | | | | PHOS,ALB,PROT TOTAL) | | | | | + +--------+ + + + | TSH | Routin | 08/08/2003 | | Results for this | | | e | 2:04 PM | | procedure are in the | | | | PST | | results section. | + +--------+ + + + documented in this encounter Results VITAMIN D, 25-HYDROXY (08/08/2003 2:04 PM PST) + +-------+ + + + | Component | Value | Ref Range | Performed | Pathologist | | | | | At | Signature | + +-------+ + + + | VITAMIN D | 40 | 10 - 68 ng/mL | | | | 25 HYDROXY | | | | | + +-------+ + + + + + | Specimen | + + | | + + + + + + + | Performing | Address | City/State/Zipcode | Phone Number | | Organization | | | | + + + + + | [facility] | [address] | [place] [address] | | | LABORATORY | | | | + + + + + TSH-THYROID STIM HORMONE (08/08/2003 2:04 PM PST) + + + + + + | Component | Value | Ref Range | Performed | Pathologist | | | | | At | Signature | + + + + + + | TSH | 4.70Comment: Test | 0.28 - 5.00 | | | | | performed by [facility] | uIU/ml | | | | | [facility] | | | | | | Laboratories. | | | | + + + + + + + + | Specimen | + + | | + + + + + + + | Performing | Address | City/State/Zipcode | Phone Number | | Organization | | | | + + + + + | [facility] | [address] | [place] [address] | | | LABORATORY | | | | + + + + + COMP METABOLIC SET (08/08/2003 2:04 PM PST) + +---------+ + + + | Component | Value | Ref Range | Performed | Pathologist | | | | | At | Signature | + +---------+ + + + | GLUCOSE, | 114 (H) | 65 - 110 mg/dL | [facility] | | | PLASMA | | | DEPARTMENT | | | (LAB) | | | OF | | | | | | PATHOLOGY | | + +---------+ + + + | BUN, PLASMA | 17 | 6 - 20 mg/dL | [facility] | | | (LAB) | | | DEPARTMENT | | | | | | OF | | | | | | PATHOLOGY | | + +---------+ + + + | CREATININE | 1.3 (H) | 0.6 - 1.1 mg/dL | [facility] | | | PLASMA | | | DEPARTMENT | | | (LAB) | | | OF | | | | | | PATHOLOGY | | + +---------+ + + + | TOTAL | 7.2 | 6.1 - 7.9 g/dL | [facility] [...] + + + | ALK PHOS | 60 | 42 - 98 U/L | [facility] | | | | | | DEPARTMENT | | | | | | OF | | | | | | PATHOLOGY | | + +---------+ + + + | AST(SGOT) | 62 (H) | 15 - 41 U/L | [facility] | | | | | | DEPARTMENT | | | | | | OF | | | | | | PATHOLOGY | | + +---------+ + + + | SODIUM, | 136 | 136 - 145 | [facility] | | | PLASMA | | mmol/L | DEPARTMENT | | | (LAB) | | | OF | | | | | | PATHOLOGY | | + +---------+ + + + | POTASSIUM, | 3.9 | 3.5 - 5.1 | [facility] | | | PLASMA | | mmol/L | DEPARTMENT | | | (LAB) | | | OF | | | | | | PATHOLOGY | | + +---------+ + + + | CHLORIDE, | 98 | 98 - 107 mmol/L | [facility] [...] + + + | ALT (SGPT) | 58 (H) | 13 - 48 U/L | [...] DEPARTMENT OF | [address] | [place] [address] | | | PATHOLOGY | [address] | | | + + + + + | [facility] DEPARTMENT OF | [address] | [place] [address] | | | PATHOLOGY | [address] | | | + + + + + documented in this encounter Visit Diagnoses Not on filedocumented in this encounter"
--- OUTSIDE RECORDS SUMMARY | ~2019-11-17 | XMS | Encounter Summary ---
Demographics + + + | Address | [address] | | | [place] [address] | + + + | Home Phone [...] Providers + +------+ + | Care Commercial Sales Consultant Name | Role | Phone | [...] as of this encounter Progress Notes Interface, Labor Relations Consultant In - 09/13/2005 2:06 AM PST [id number] [facility] Date: 12/12/2004 Clinic: Endocrinology PHONE CONTACT NOTE The patient called me today after having surgery last week here at [facility]. Her concern was the development of [...] cushion which I have ordered today through [employer], phone #[phone] and fax #[phone]. Today, the patient will monitor the decubiti closely and will be in touch with myself and her other physician depending on the progress. She also still has [address], which may be removed in one or two weeks when she returns to the Surgery Clinic at [facility]. Beto Meeks M.D. PD / HS [id number] / [id number] / [id number] / [id number] cc: Chris Padgett M.D. Electronically signed by Beto Meeks 09-12-2005 02:22:31 AM documented i n this encounter Plan of Treatment Not on filedocumented as of this encounter Visit Diagnoses Not on filedocumented in this encounter"
--- OUTSIDE RECORDS SUMMARY | ~2019-11-17 | XMS | Encounter Summary ---
Demographics + + + | Address | [address] | | | [place] [address] | + + + | Home Phone | | + + + | Preferred Language | Unknown | + + + | Marital Status | | + + + | Jain Affiliation | 1001 | + + + | Race | Unknown | + + + | Ethnic Group | Unknown | + + + Author + + + | Author | [facility] | | | and [place] | + + + | Organization | [facility] [...] Team Providers + +------+ + | Care Admin Asst Name | Role | Phone | + +------+ + | Petrona Thapa | PCP | | | MD | | | + +------+ + Reason for Visit + + + | Reason | Comments | + + + | Toe Fracture | | + + + Encounter Details +--------+ + + + + | Date | Type | Department | Care Team | Description | +--------+ + + + + | 04/04/ | Telephone | [facility] | Alanis, | Toe Fracture | | 2019 | | MEDICINE [address] [place] [address] | MD Petrona | | | | | [facility] | [address] [place] [address] | | | | | [place] [address] | [place] [address] | | | | | [phone] | [phone] | | | | | | | [...] | | | | | [place] [address] | | | | | | [phone] | | | | | | | | +--------+---------+ + + + | 12/20/ | Office | Otolaryngology | Ulysses Genao MD | | | 2019 | Visit | | [address] | | | | | | [address] [place], | | | | | | [place] [address] | | | | | | [phone] | | | | | | | | +--------+---------+ + + + | 02/15/ | Office | Internal Medicine | Alanis, | | | 2019 | Visit | | MD Petrona | | | | | | [address] | | | | | | [place] [address] | | | | | | [phone] | | | | | | | | +--------+---------+ + + + documented as of this encounter Visit Diagnoses Not on filedocumented in this encounter"
--- OUTSIDE RECORDS SUMMARY | ~2019-11-17 | XMS | Encounter Summary ---
Demographics + + + | Address | [address] | | | [place] [address] | + + + | Home Phone [...] Team Providers + +------+ + | Care Recreation Leader Name | Role | Phone | + +------+ + | Maria Esther Cintron MD | PCP | | + +------+ + Reason for Visit + + + | Reason | Comments | + + + | Other | Blood test & stool order | + + + | Diarrhea | | + + + Encounter Details +--------+ + + + + | Date | Type | Department | Care Team | Description | +--------+ + + + + | 02/15/ | Telephone | Digestive Health | Chris Padgett, | Other (Blood test & | | 2007 | | Center [address] | [address] | stool order); | | | | Ave Mailcode: [facility] | [address] | Diarrhea | | | | [facility] | [place], [place] | | | | | and Healing, | [address] | | | | | [place] [address] [facility] | [phone] | | | | | [place], [place] | | | | | | [address] | | | | | | [phone] | | | +--------+ + + + [...]
--- OUTSIDE RECORDS SUMMARY | ~2019-11-17 | XMS | Encounter Summary ---
Demographics + + + | Address | [address] | | | [place] [address] | + + + | Home Phone [...] Team Providers + +------+ + | Care Scroll Machine Operator Name | Role | Phone | + +------+ + PCP | Unavailable | + +------+ + Encounter Details +--------+ + + + + | Date | Type | Department | Care Team | Description | +--------+ + + + + | 01/02/ | Office | | Note, Outpatient | [...] as of this encounter Progress Notes Interface, Caustic Liquor Maker In - 01/13/2005 9:03 AM PDT [id number] [facility] Date: 01/02/2005 Clinic: [facility] Subjective: Ms. Meehan presents today on a walk-in basis for evaluation of some discharge from her panniculectomy incisions over her medial thighs. She reports that she was in town today from [place], [place], to get some labs drawn at [facility] and decided to stop by the clinic to have this evaluated. Over the several days, she has noticed a small amount of drainage from her right and left medial thighs. She is using 2 x 2 bandages with tape to soak up the drainage. She is changing dressings about 3 times a day. She reports that the area of discharge is nontender and that there is just a little bit of swelling on both areas that are affected. She is currently tolerating her bariatric regular diet. She is ambulating. She has normal energy. She has lost over 200 pounds since her gastric bypass over 1 year ago. She reports that she had a staple taken out on December 19, 2004, here in the clinic. Objective: Vital Signs: Weight 163, blood pressure 102/68, and pulse 68. General: In no acute distress, and pleasant-appearing woman. Heart: S1 and S2 regular. No murmurs, rubs, or gallops. Lungs: Clear to auscultation bilaterally with good air movement throughout. Abdomen: Soft, nontender, and nondistended. There is a large panniculectomy scar across her mid abdomen extending nearly 80 cm with extending down into her medial thighs as well another 40 cm each. There is a 3 x 8-cm nontender hematoma on her right medial thigh that is draining serous drainage. Left thigh has very small 1 x 2-cm hematoma that is also nontender and draining small serous drainage. Assessment and Plan: Ms. Belinda Meehan is doing very well 1 year postoperative from her gastric bypass operation and 3 weeks out from her having her efren removed from her panniculectomy in late November 2004. We will follow up with her routine laboratory exams today which were still pending, and followup in clinic in 6 months. Anticipate resolution of this hematoma, and there is no need to intervene at this time since they are nontender and draining serous fluid. Dr. Padgett examined the patient and agrees with the above plan. Sree Riley M.D. Chris Padgett M.D. / [id number] / [id number] / [id number] / [id number] C: 01/08/2005 cmw documented i n this encounter Plan of Treatment Not on filedocumented as of this encounter Visit Diagnoses Not on filedocumented in this encounter"
--- OUTSIDE RECORDS SUMMARY | ~2019-11-17 | XMS | Encounter Summary ---
Demographics + + + | Address | [address] | | | [place] [address] | + + + | Home Phone [...] Team Providers + +------+ + | Care Decay Control Operator Name | Role | Phone | + +------+ + PCP | Unavailable | + +------+ + Encounter Details +--------+ + + + + | Date | Type | Department | Care Team | Description | +--------+ + + + + | 07/28/ | Results | Neurology Stroke | Indira Bender, | | | 2003 | Only | Center [address] | DO Neurology [address] | | | | | [address] | [address] | | | | | Mailcode: [id number] | [place], [place] | | | | | Outpatient Clinic | [address] | | | | | [facility], | [phone] | | | | | [place] [address] | | | | | | [phone] | | | +--------+ + + + [...] | + +--------+ + + + | ANTI NUCLEAR AB | Routin | 07/28/2003 | | Results for this | | SCREEN, SERUM | e | 12:05 PM | | procedure are in the | | | | PST | | results section. | + +--------+ + + + documented in this encounter Results ANTI NUCLEAR AB SCREEN (07/28/2003 12:05 PM PST) + + + + + + | Component | Value | Ref Range | Performed | Pathologist | | | | | At | Signature | + + + + + + | SANIA SCREEN | NegativeComment: | Negative | | | | ON HEP | Test performed by [facility] | | | | | 2,SERUM | [facility] | | | | | | Laboratories. | | | | + + + + + + + + | Specimen | + + | | + + + + + + + | Performing | Address | City/State/Zipcode | Phone Number | | Organization | | | | + + + + + | [facility] | [address] | [place] [address] | | | LABORATORY | | | | + + + + + documented in this encounter Visit Diagnoses Not on filedocumented in this encounter"
--- OUTSIDE RECORDS SUMMARY | ~2019-11-17 | XMS | Encounter Summary ---
Demographics + + + | Address | [address] | | | [place] [address] | + + + | Home Phone | | + + + | Preferred Language | Unknown | + + + | Marital Status | Single | + + + | Christian Affiliation | ADV | + + + [...] Team Providers + +------+ + | Care Pulp Refiner Operator Name | Role | Phone | [...] 04/28/ | Refill | [facility] | VenkatisacChris, | Refill Request | | 2007 | | [place] [address] | [address] [facility] | | | | | [place] Mailcode: CH4S | [address] [facility] | | | | | [facility] | [place], [place] | | | | | and [place], | [address] | | | | | [facility] | [phone] | | | | | Floor [place], [place] | | | | | | [address] | | | | | | [phone] | | | +--------+--------+ + + + [...]
--- OUTSIDE RECORDS SUMMARY | ~2019-11-17 | XMS | Encounter Summary ---
Demographics + + + | Address | [address] | | | [place] [address] | + + + | Home Phone [...] Providers + +------+ + | Care Machine Splitter Name | Role | Phone | + +------+ + | Sulaiman Carrera MD | PCP | | + +------+ + Encounter Details +--------+ + + + + | Date | Type | Department | Care Team | Description | +--------+ + + + + | 08/09/ | Hospital | Diagnostic Imaging | | | | 2013 | Encounter | Services at [facility] | | | | | | [address] | | | | | | Clementina Winkler [place] | | | | | | [facility], [address] [place] [address] | | | | | | [place], [place] | | | | | | [address] | | | | | | [phone] | | | +--------+ + + + [...] + +---------+ + + | betaxolol | 1-2 drops two times | | 0 | | | | (BETOPTIC S) 0.25 % | daily. | | | | | | Ophthalmic Drops, | | | | | | | Suspension | | | | | | + + + +---------+ + + | CALCIUM 600 WITH | 1000 mg tab 4 x | | 0 | | | | VITAMIN D OR | daily | | | | | + + + +---------+ + + | cholecalciferol, | Take 4,000 Units by | | 0 | | | | Vitamin D3, 1,000 | mouth once daily. | | | | | | unit Oral tablet | | | | | | + + + +---------+ + + | Cyanocobalamin | 1 inj q month | | 0 | | | | 1,000 mcg/mL | | | | | | | Injection Syringe | | | | | | + + + +---------+ + + | DULoxetine 60 mg | Take 60 mg by mouth | | 0 | | | | oral capsule,delayed | once daily. | | | | | | release(/CARLA) | | | | | | + + + +---------+ + + | furosemide 80 mg | Take 80 mg by mouth | | 0 | | | | Oral tablet | two times daily. | | | | | + + + +---------+ + + | gabapentin 300 mg | Take 900 mg by mouth | | 0 | | | | Oral Tablet | three times daily. | | | | | + + + +---------+ + + | methocarbamol 750 | Take 1 tablet by | | 0 | | | | mg Oral Tablet | mouth three times | | | | | | | daily. | | | | | + + + +---------+ + + | metoprolol | Take 50 mg by mouth | | 0 | | | | tartrate 50 mg Oral | three times daily. | | | | | | tablet | | | | | | + + + +---------+ + + | Multivitamin Oral | 1 tab by mouth twice | | 0 | | | | Tablet | daily | | | | | + + + +---------+ + + | omeprazole 20 mg | Take 20 mg by mouth | | 0 | | | | Oral capsule,delayed | two times daily. | | | | | | release(DR/EC) | | | | | | + + + +---------+ + + | ondansetron ODT 4 | Take 4 mg by mouth | | 0 | | | | mg oral | every twelve hours | | | | | | tablet,disintegratin | as needed. | | | | | | g | | | | | | + [...] by mouth | 120 | 1 | / | | | (CARAFATE) 1 gram | before meals. | | | 09 | | | Oral Tablet | | | | | | + + + +---------+ + + | topiramate 50 mg | Take 50 mg by mouth | | 0 | | | | oral tablet | two times daily. | | | | | + + + +---------+ + + | torsemide 5 mg | Take 20 mg by mouth | | 0 | | | | Oral tablet | once daily. | | | | | + + + +---------+ + + | travoprost | 1 drop once daily in | | 0 | | | | (TRAVATAN Z) 0.004 % | the evening. | | | | | | Ophthalmic Drops | | | | | | + [...] | X-RAY SPINE THORACIC | Routin | 08/09/2013 | Fibromyalgia | Results for this | | 2 VIEWS | e | 2:23 PM | syndrome 729.1 LBP | procedure are in the | | | | PST | (low back pain) | results section. | | | | | Pain in thoracic | | | | | | spine | | + +--------+ + + + documented in this encounter Results X-RAY SPINE THORACIC 2 VIEWS (08/09/2013 2:23 PM PST) + + + + + + | Component | Value | Ref Range | Performed | Pathologist | | | | | At | Signature | + + + + + + | SPINE | STUDY: SPINE THORACIC 2 | | | | | THORACIC 2 | VIEWS 08/09/13 14:23:00 | | | | | VIEWS | HISTORY: Pain, prior | | | | | | ground level fall. | | | | | | COMPARISON: Outside MRI | | | | | | 01/31/13 FINDINGS: The | | | | | | thoracic vertebral | | | | | | bodies are normal in | | | | | | height and alignment. | | | | | | Mildmultilevel disc | | | | | | space narrowing and | | | | | | trace endplate spurring | | | | | | are evident. Thereis no | | | | | | fracture or focal | | | | | | destruction. The | | | | | | paraspinal soft tissues | | | | | | are intact. IMPRESSION: | | | | | | Mild multilevel thoracic | | | | | | degenerative disc | | | | | | disease, grossly | | | | | | unchanged since theprior | | | | | | MRI. No acute osseous | | | | | | abnormality. Attending | | | | | | Radiologists: ANGELO | | | | | | DENISE LUTHERuthor: | | | | | | ANGELO LUTHER MD I | | | | | | have personally viewed | | | | | | this procedure/exam, | | | | | | reviewed this report, | | | | | | and madechanges to it | | | | | | where appropriate. | | | | | | Final/Electronically | | | | | | conner / ANGELO | | | | | | HOMA 08/09/2013 15:22 | | | | | | PM | | | | + + + + + + + + | Specimen | + + | | + + + +---------+ + + | Performing | Address | City/State/Zipcode | Phone Number | | Organization | | | | + +---------+ + + | [facility] DEPARTMENT OF | | | | | RADIOLOGY | | | | + +---------+ + + documented in this encounter Visit Diagnoses + + | Diagnosis | + + | Fibromyalgia syndrome 729.1 Mylagia and myositis, unspecified | + + | LBP (low back pain) Lumbago | + + | Pain in thoracic spine | + + documented in this encounter"
--- OUTSIDE RECORDS SUMMARY | ~2019-11-17 | XMS | Encounter Summary ---
Demographics + + + | Address | [address] | | | [place] [address] | + + + | Home Phone [...] Providers + +------+ + | Care Lead Performance Support Analyst Name | Role | Phone | [...] | Closed | | | | | [id number] | | | | | | | Proc Unit | | | | | | | [address] | | | | | | | [address] | | | | | | | Mailcode: [facility] | | | | | | | [facility] | | | | | | | for Health | | | | | | | and Healing, | | | | | | | [address] | | | | | | | [facility] [place] | | | | | | | [address] | | | | | | | Phone: | | | | | | | [phone] | | | | | | | Fax: | | | | | | | [phone] | +--------+--------+ + + + + Encounter Details +--------+ + + + + | Date | Type | Department | Care Team | Description | +--------+ + + + + | 09/14/ | Hospital | [facility] PROCEDURE | Olivia, | | | 2008 | Encounter | [address] | MD Pedrito | | | | | [place] Mailcode: [facility] | | | | | | [facility] | | | | | | Health and Healing, | | | | | | [address] | | | | | | [facility] [place] | | | | | | [address] | | | | | | [phone] | | | +--------+ + + + [...] this encounter Discharge Summaries Other, Faculty - 09/14/2008 9:07 AM PDT documented in this encounter Discharge Instructions Instructions Marleen Hogan - 09/14/2008 [facility] [address] [place] [address] Toll Free ext: [phone] Home Care Instructions after EGD (Upper Endoscopy) [...] hours, or on weekends and holidays [facility] and have the GI doctor utilization manager paged. The provider who performed your procedure [...] Meehan is a 48 y.o. female MR# [id number] presents today for an EG D to [...] 01/22/2006 Tramadol 01/22/2006 Morphine Clarithromycin Hives 06/28/2007 [id number]-[id number]-dpc-caff 08/28/2008 See procedure note 09/14/2008 documented in [...]
--- OUTSIDE RECORDS SUMMARY | ~2019-11-17 | XMS | Encounter Summary ---
Demographics + + + | Address | [address] | | | [place] [address] | + + + | Home Phone [...] Team Providers + +------+ + | Care Drapery Cutter Machine Name | Role | Phone | [...] + + | 04/19/ | Telephone | [facility] INTER[facility] | Alanis, | Lab Results | | 2019 | | MEDICINE [address] [place] [address] | MD Petrona | | | | | [facility] | [address] [place] [address] | | | | | [place] [address] | [place] [address] | | | | | [phone] | | | | | | | [...] | | 2019 | Visit | | [facility] [address] | | | | | | [address] [place] | | | | | | [place] [address] | | | | | | [phone] | | | | | | | | +--------+---------+ + + + | 12/20/ | Office | Otolaryngology | Ulysses Genao MD | | | 2020 | Visit | | [address] | | | | | | [address] [place], | | | | | | [place] [address] | | | | | | [phone] | | | | | | | | +--------+---------+ + + + | 02/15/ | Office | Internal Medicine | Alanis, | | | 2019 | Visit | | MD Petrona | | | | | | [address] [place] | | | | | | [place] [address] | | | | | | [phone] | | | | | | | | +--------+---------+ + + + documented as of this encounter Visit Diagnoses Not on filedocumented in this encounter"
--- OUTSIDE RECORDS SUMMARY | ~2019-11-17 | XMS | Encounter Summary ---
Demographics + + + | Address | [address] | | | [place] [address] | + + + | Home Phone [...] Providers + +------+ + | Care Executive Assistant Name | Role | Phone | [...] as of this encounter Progress Notes Interface, Director [facility] [employer] In - 08/19/2005 2:05 AM PST [id number] [facility] Date: 07/24/2005 Clinic: Hematology [...] full and complete summary. Lukasz Sellers M.D. obstetrics technician NANCY / SHARIF [id number] / [id number] / [id number] / [id number] cc: Pedrito Gutierrez M.D. [address] [place] [address] Electronically signed by Lukasz Sellers 08-18-2005 01:28:24 PM documented i n this encounter Plan of Treatment Not on filedocumented as of this encounter Visit Diagnoses Not on filedocumented in this encounter"
--- OUTSIDE RECORDS SUMMARY | ~2019-11-17 | XMS | Encounter Summary ---
Demographics + + + | Address | [address] | | | [place] [address] | + + + | Home Phone [...] Team Providers + +------+ + | Care Campaign Manager Name | Role | Phone | [...] | 2006 | | Center [address] | [address] | | | | | [place] Mailcode: [facility] | [address] | | | | | [facility] | [place], [place] | | | | | and [place], | [address] | | | | | [facility] , | [phone] | | | | | Floor [place], [place] | | | | | | [address] | | | | | | [phone] | | | +--------+ + + + [...]
--- OUTSIDE RECORDS SUMMARY | ~2019-11-17 | XMS | Encounter Summary ---
Demographics + + + | Address | [address] | | | [place] [address] | + + + | Home Phone [...] Team Providers + +------+ + | Care Patents Examiner Name | Role | Phone | + +------+ + | Pedrito Gutierrez MD | PCP | | + +------+ + Reason for Visit +--------+ + | Reason | Comments | +--------+ + | Other | wondering ablout colonoscopy | +--------+ + Encounter Details +--------+ + + + + | Date | Type | Department | Care Team | Description | +--------+ + + + + | 08/01/ | Telephone | [facility] | Chris Padgett, | Other (wondering | | 2008 | | [place] [address] | [address] | ablout colonoscopy) | | | | Ave Mailcode: [facility] | [facility] | | | | | [facility] | [place], [place] | | | | | and [place], | [address] | | | | | [facility] | [phone] | | | | | [place], [place] | | | | | | [address] | | | | | | [phone] | | | +--------+ + + + [...]
--- OUTSIDE RECORDS SUMMARY | ~2019-11-17 | XMS | Encounter Summary ---
Demographics + + + | Address | [address] | | | [place] [address] | + + + | Home Phone [...] Team Providers + +------+ + | Care Baler Operator Name | Role | Phone | [...] | | Center at [facility] [address] | [address] | | | | | [address] | , [address] | | | | | Mailcode: Center | [place], [place] | | | | | [facility] and | [address] | | | | | Healing, [address] | [phone] | | | | | [place], [place] | | | | | | [address] | | | | | | [phone] | | | +--------+ + + + [...]
--- OUTSIDE RECORDS SUMMARY | ~2019-11-17 | XMS | Encounter Summary ---
Demographics + + + | Address | [address] | | | [place] [address] | + + + | Home Phone [...] Team Providers + +------+ + | Care Husbandry Person Name | Role | Phone | + +------+ + | Sulaiman Carrera MD | PCP | | + +------+ + Encounter Details +--------+ + + + + | Date | Type | Department | Care Team | Description | +--------+ + + + + | 07/24/ | Ancillary | Registration [address] | Chris Padgett, | | | 2005 | Registratio | [address] | [address] | | | | n | [place] Mailcode: [facility] | [address] | | | | | [place], [place] | [place], [place] | | | | | [address] | [address] | | | | | [phone] | [phone] | | | | | | | [...] + | COMPLETE METABOLIC | Routin | 07/24/2005 | | Results for this | | SET | e | 2:45 PM | | procedure are in the | | (NA,K,CL,CO2,BUN,CRE | | PST | | results section. | | AT,GLUC,CA,AST,ALT,B | | | | | | DEYA TOTAL,ALK | | | | | | PHOS,ALB,PROT TOTAL) | | | | | + +--------+ + + + | CBC ONLY | Routin | 07/24/2005 | | Results for this | | | e | 2:45 PM | | procedure are in the | | | | PST | | results section. | + +--------+ + + + | TYPE AND SCREEN | Routin | 07/24/2005 | | Results for this | | | e | 2:45 PM | | procedure are in the | | | | PST | | results section. | + +--------+ + + + documented in this encounter Results TYPE AND SCREEN (07/24/2005 2:45 PM PST) + +-------+ + + + [...] Performed At | + + + | Instrument Testing Instrument Testing | [facility] | | | DEPARTMENT OF | | | PATHOLOGY | + + + + + + + + | Performing | Address | City/State/Zipcode | Phone Number | | Organization | | | | + + + + + | [facility] DEPARTMENT OF | [address] | [place] [address] | | | PATHOLOGY | [address] | | | + + + + + | [facility] DEPARTMENT OF | [address] | [place] [address] | | | PATHOLOGY | [address] | | | + + + + + CBC ONLY WITH PLATELET (07/24/2005 2:45 PM PST) + +-------+ + + + | Component | Value | Ref Range | Performed | Pathologist | | | | | At | Signature | + +-------+ + + + | WHITE CELL | 7.7 | 4.4 - 11.0 K/cu | [facility] | | | COUNT | | mm | DEPARTMENT | | | | | | OF | | | | | | PATHOLOGY | | + +-------+ + + + | RED CELL | 4.70 | 4.00 - 5.20 | [facility] | | | COUNT | | M/cu mm | DEPARTMENT | | | | | | OF | | | | | | PATHOLOGY | | + +-------+ + + + | HEMOGLOBIN | 14.6 | 12.0 - 16.0 | [facility] | | | | | g/dL | DEPARTMENT | | | | | | OF | | | | | | PATHOLOGY | | + +-------+ + + + | HEMATOCRIT | 43.4 | 36.0 - 46.0 % | [facility] [...] +-------+ + + + | MCHC | 33.7 | 33.4 - 35.5 | [facility] | | | | | g/dL | DEPARTMENT | | | | | | OF | | | | | | PATHOLOGY | | + +-------+ + + + | RDW | 12.3 | 11.5 - 15.0 % | [facility] | | | | | | DEPARTMENT | | | | | | OF | | | | | | PATHOLOGY | | + +-------+ + + + | PLATELET | 256 | 150 - 400 K/cu | [facility] [...] + + | [facility] DEPARTMENT OF | [address] | [place] [address] | | | PATHOLOGY | [address] | | | + + + + + | [facility] DEPARTMENT OF | [address] | [place] [address] | | | PATHOLOGY | [address] | | | + + + + + COMP METABOLIC SET (07/24/2005 2:45 PM PST) + +---------+ + + + | Component | Value | Ref Range | Performed | Pathologist | | | | | At | Signature | + +---------+ + + + | GLUCOSE, | 68 | 65 - 110 mg/dL | [facility] [...] +---------+ + + + | TOTAL | 6.3 | 6.1 - 7.9 g/dL | [facility] [...] + + + | ALK PHOS | 101 (H) | 42 - 98 U/L | [facility] | | | | | | DEPARTMENT | | | | | | OF | | | | | | PATHOLOGY | | + +---------+ + + + | AST(SGOT) | 40 | 15 - 41 U/L | [facility] | | | | | | DEPARTMENT | | | | | | OF | | | | | | PATHOLOGY | | + +---------+ + + + | SODIUM, | 144 | 136 - 145 | [facility] | | | PLASMA | | mmol/L | DEPARTMENT | | | (LAB) | | | OF | | | | | | PATHOLOGY | | + +---------+ + + + | POTASSIUM, | 4.4 | 3.5 - 5.1 | [facility] | | | PLASMA | | mmol/L | DEPARTMENT | | | (LAB) | | | OF | | | | | | PATHOLOGY | | + +---------+ + + + | CHLORIDE, | 110 (H) | 98 - 107 mmol/L | [facility] | | | PLASMA | | | DEPARTMENT | | | (LAB) | | | OF | | | | | | PATHOLOGY | | + +---------+ + + + | TOTAL CO2, | 25 | 23 - 29 mmol/L | [facility] | | | PLASMA | | | DEPARTMENT | | | (LAB) | | | OF | | | | | | PATHOLOGY | | + +---------+ + + + | ALT (SGPT) | 62 (H) | 13 - 48 U/L | [facility] | | | | | | DEPARTMENT | | | | | | OF | | | | | | PATHOLOGY | | + +---------+ + + + + + | Specimen | + + | | + + + + + | Narrative | Performed At | + + + | [id number] Estimated GFR > 60 mL/min/1.73 sq m if non- | [facility] | | [id number] Estimated GFR > 60 mL/min/1.73 sq m [...] | + + + + + | [facility] | [address] | [place] [address] | | | PATHOLOGY | [address] | | | + + + + + | [facility] | [address] | [place] [address] | | | PATHOLOGY | [address] | | | + + + + + documented in this encounter Visit Diagnoses Not on filedocumented in this encounter"
--- OUTSIDE RECORDS SUMMARY | ~2019-11-17 | XMS | Encounter Summary ---
Demographics + + + | Address | [address] | | | [place] [address] | + + + | Home Phone [...] Team Providers + +------+ + | Care Recovery Agent Name | Role | Phone | [...] Description | +--------+--------+ + + + | 12/14/ | Refill | [facility] | Alanis, | Medication Refill | | 2018 | | MEDICINE [address] [place] [address] | MD Petrona | | | | | [facility] | [address] [place] [address] | | | | | [place] [address] | [place] [address] | | | | | [phone] | [phone] | | | | | | | [...] | | | | | [place] [address] | | | | | | [phone] | | | | | | | | +--------+---------+ + + + | 12/20/ | Office | Otolaryngology | Ulysses Genao MD | | | 2019 | Visit | | [address] | | | | | | [address] [place], | | | | | | [place] [address] | | | | | | [phone] | | | | | | | | +--------+---------+ + + + | 02/15/ | Office | Internal Medicine | Alanis, | | | 2019 | Visit | | MD Petrona | | | | | | [address] [place] [address] [address] | | | | | | [place] [address] | | | | | | [phone] | | | | | | | | +--------+---------+ + + + documented as of this encounter Visit Diagnoses Not on filedocumented in this encounter"
--- OUTSIDE RECORDS SUMMARY | ~2019-11-17 | XMS | Encounter Summary ---
Demographics + + + | Address | [address] | | | [place] [address] | + + + | Home Phone [...] Team Providers + +------+ + | Care Horse Show Manager Name | Role | Phone | [...] + + | 11/22/ | Refill | Kraig Turner | Beto Meeks MD | Refill Request | | 2008 | | [facility] | [address] [place] | | | | | [facility] | [place], [place] | | | | | [address] | [address] | | | | | [address] | [phone] | | | | | [facility] | | | | | | Physician's | | | | | | [facility] [place], | | | | | | [place] [address] | | | | | | [phone] | | | +--------+--------+ + + + [...]
--- OUTSIDE RECORDS SUMMARY | ~2019-11-17 | XMS | Encounter Summary ---
Demographics + + + | Address | [address] | | | [place] [address] | + + + | Home Phone [...] Team Providers + +------+ + | Care Cylinder Sander Operator Name | Role | Phone | + +------+ + | Sulaiman Carrera MD | PCP | | + +------+ + Encounter Details +--------+ + + + + | Date | Type | Department | Care Team | Description | +--------+ + + + + | 05/30/ | Document-Sc | UNKNOWN DEPARTMENT | Unknown . | | | 2003 | anned | [address] | | | | | | [address] | | | | | | [place], [place] | | | | | | [address] | | | +--------+ + + + [...] + + | BONE DENSITOMETRY | | 05/30/2004 | | Results for this | | | | 12:00 AM | | procedure are in the | | | | PST | | results section. | + +--------+ + + + documented in this encounter Results BONE DENSITOMETRY (05/30/2004 12:00 AM PST) + + + | Narrative | Performed At | + + + | | | | | | + + + + + | Procedure Note | + + | Edwige Faculty - 11/03/2013 10:22 AM PDT | + + documented in this encounter Visit Diagnoses Not on filedocumented in this encounter"
--- OUTSIDE RECORDS SUMMARY | ~2019-11-17 | XMS | Encounter Summary ---
Demographics + + + | Address | [address] | | | [place] [address] | + + + | Home Phone [...] Team Providers + +------+ + | Care [employer] Home Demonstrator Name | Role | Phone | + +------+ + | Pedrito Gutierrez MD | PCP | | + +------+ + Reason for Visit +--------+ + | Reason | Comments | +--------+ + | Pain | every where | +--------+ + Encounter Details +--------+---------+ + + + | Date | Type | Department | Care Team | Description | +--------+---------+ + + + | 05/29/ | Office | [facility] | Delfina Molina, | Chronic Abdominal | | 2005 | Visit | Pain Center at | ANP | Pain; Cervical Pain; | | | | [facility] | | Joint pain 719.40; | | | | [address] | | Depression | | | | Mailcode: CH15P | | | | | | [facility] | | | | | | and Healing, | | | | | | Building | | | | | | Floor [place], [place] | | | | | | [address] | | | | | | [phone] | | | +--------+---------+ + + + [...] + + + | Blood Pressure | 134/80 | 05/29/2006 1:51 PM | | | | | PST | | + + + + + | Pulse | 88 | 05/29/2006 1:51 PM | | | | | PST | | + + + + + | Temperature | - | - | | + + + + + | Respiratory Rate | 16 | 05/29/2006 1:51 PM | | | | | PST | | + + + + + | Oxygen Saturation | - | - | | + + + + + | Inhaled Oxygen | - | - | | | Concentration | | | | + + + + + | Weight | 87.4 kg (192 lb 9.6 | 05/29/2006 1:51 PM | | | | oz) | PST | | + + + + + | Height | 175.3 cm (5' 9") | 05/29/2006 1:51 PM | | | | | PST | | + + + + + | Body Mass Index | 28.44 | 05/29/2006 1:51 PM | | | | | PST | | + + + + + documented in this encounter Patient Instructions Patient Instructions 05/29/2006 2:00 PM PST 1. Please follow up with Dr Brenda SHEEHAN to revi ew our recommendations/plan and to commence therapy as appropriate. 2. Patient will be referred for a Physical Therapy evaluation here at the [facility] in [place]. 3. Patient will be referred for a Psychology evaluation here at the [facility]. 4. Following the completion of these evaluations, this case will be discussed at our Multi disciplinary Patient Care Conference [MPCC] and the patient contacted with follow up plan of care. 5. I recommend a self help book for improving pain coping and adaptation called Managing P ain Before It Manages You by Mariama Canela. 6. Any imaging that you have had of your spine please bring with you next visit with PT. documented in this encounter Progress Notes Delfina Molina - 05/29/2006 2:24 PM PSTFormatting of this note might be different from lesli gomez. 05/29/2006 Belinda Meehan is a 46 y.o. female [id number] Chief Complaint: Patient presents with: Pain - every where History of Present Illness: Belinda Meehan is a 46 y.o. female has a history of chronic intractable pain, located in the abdomen, lower back, middle upper back and legs right> lef t, migraines. Estimated onset of abdominal pain was in 2005; generalized "labor pain". Holli ology of pain include(s) pain just began with no known cause, despite a full GI workup. Tota l of 4 abdominal surgeries, Feeling like a pushing pressure from the inside. Lower back pain 30 years Hx of three broken vertbrae and herniated discs, pain got worse after weight loss (270lbs). Leg throbbing pain associated with the back pain. Osteoarthritis from neck down i nto the knees and ankles. Belinda reports that pain is aggravated by standing, lifting and cold, bending forwards and backwards, exercise, cold, climbing stairs, stressful situations and relieved by medications and hot showers. Numbness down right leg intermittently, weakness in hands, arms and legs. Prior treatment for this pain complaint has included medications such as PAIN MEDICINES: Opioids: Hydrocodone (Vicodin, Lortab, [place]): Why stopped?: don't remember. Came off due to elevate d liver enzymes Oxycodone (Percocet, Oxycontin): 15mg, 3 tablets every 4 hours if this doesn't work I go to the ED three times inpast month "usually by ambulence" for migraines 30 years and abdominal pain last year. MUSCLE RELAXANTS: Cyclobenzaprine (Flexeril): Why stopped?: took me off it. ANTI-DEPRESSANTS: Amitriptyline (Elavil): Why stopped?: Side Effects: "wanted to sleep all the time". Bupropion (Wellbutrin): Maximum Dose: 300mg , Length of Therapy: Mood depends on the weat her, if I can stay warm I'm hurting and more depressed. ANTI-INFLAMMATORIES: Ibuprofen (Advil, Motrin): Why stopped?: Side Effects: leg swelling. physical therapy (currently doing for knee pain) and surgery (rou en Y gastric bypass ) left knee surgery torn maniscus(arthroscopy). The most effective treatments have been: medications. Physical therapy, exercise, manipulations massage heat, aqua therapy TENS all i mproved for a short time. Interventional procedures tried in the past for this pain complaint have included: ELIANA, magnolia roid injections in knees and TPI improved pain for a short time. Surgery. Associated issues of concern with this pain complaint include: Incomplete urination, sleep disruption, depression, migraines. Review of Systems: Skin: negative Lymph Nodes: negative Bones, Joints, and Muscles: joint pain Hematopoietic System: negative Endocrine System: cold intolerance Head: migraines every day, right side (can go to the left) N/V/P/P aura seeing lights and dark spots, has been seeing an opthalmologist Dr. 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 Eyes: decrease in vision left eye, excessive dryness Ears: negative Nose: negative Throat: negative Neck: with headaches Respiratory System: negative Cardiovascular System: negative Gastrointestinal System: no appetite eating jello and yoghurt last 6 months, abdominal sina n and loose stool since bypass 4-5 times per day. Genitourinary System: urinary hesitancy Nervous System: numbness in legs sometimes and headache Psychiatric History: Depressed Mood, sleep disturbance, decreased interest in previously e njoyable activities, decreased energy, decreased or increased appetite, anxiety and social w ithdrawal 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 Comment: 2005 endoscopy Past Surgical History: GASTRIC BYPASS Mayra Padgett Comment: wt 278 01/18 PANICULECTOMY HX CHOLECYSTECTOMY HX HYSTERECTOMY HX SALPINGO-OOPHORECTOMY COLONOSCOPY Comment: 03/2006 HX TONSILLECTOMY DC D&C AFTER DELIVERY DC INJECT TRIGGER POINT, 1 OR 2 Family History: Cancer Mother Heart Father Additional Family History Father Comment: Migraine Additional Family History Mother Comment: Migraine Tobacco Use: Quit 1.0 Packs/Day For 30 Years Alcohol Use: No PHYSICAL EXAMINATION: BP 134/80 | Pulse 88 | Resp 16 | Ht 5' 9" (1.75m) | Wt 192 lbs 9.6 oz (87.4kg) Body Mass Index is 28.43 kg/(m^2). GENERAL APPEARANCE: flat affect and well groomed, moderate pain distress with headache, and abdominal pain GAIT & STATION: symmetrical, toe gait normal, heel gait normal, tandem gait normal, steady , squat and rise, hop each foot and stand each foot MUSCULOSKELETAL: Cervical spine Curvature: physiologic Range of motion: Flexion: 30 degrees pulling pain Extension: <5degrees painful no radicular pain Right rotation + extension: painful Left rotation + extension: painful Spurling's: Left: Negative Right: Negative Myofasial tenderness: diffuse Thoracic Spine Curvature: physiologic kyphosis Myofasial tenderness:diffuse Lumbar spine Curvature: decreased lordosis Lumbar range of motion: Flexion: 60 degrees Extension: 60 degrees Right rotation + extension: not painful Left rotation + extension: not painful Myofasial tenderness: Ileotibials and gluteals MANUAL TENDERPOINT SURVEY: 6 manual tender points and 0 control points NEUROLOGICAL: Cranial Nerves: vision bilaterally intact,extraocular movements intact,pupils equal and res ponsive to light,palatine reflex positive,tongue range of motion symmetrical,hearing bilater ally intact,facial sensation intact to light touch and pin,sternocleidomastoid power bilater ally 5+ Sensory examination: intact light touch bilaterally in upper extremities,intact light touc h bilaterally in lower extremities,intact pin bilaterally in upper extremities,intact pin bi laterally in lower extremities Hypesthesia: negative Allodynia: negative Hyperalgesia: negative Hyperpathia: negative Dysesthesia: negative Motor power: Flexion & Extension is bilaterally 5+ in: shoulder,elbow,wrist,hip,knee,ankle,extensor martinez icus longus Inversion & Eversion is bilaterally 5+ in: wrist,ankle Abduction & Adduction is bilaterally 5+ in: shoulder,hip Internal & External Rotation is bilaterally 5+ in: shoulder,hip Reflexes: Bilaterally 2/4+: triceps,biceps,brachioradialis,knee,ankle Babinski: negative Romberg: negative SHOULDER EXAMINATION: Active range of motion: complete Neer sign: Negative Hawkin's sign: Negative Scarf sign: Negative Myofasial tenderness: negative EXTREMITY EXAM: extremities, peripheral pulses and reflexes normal HEENT: PERRLA, EOMI, TM's normal bilaterally and Oropharynx clear without lesion or exudate CHEST: clear to auscultation bilaterally CARDIOVASCULAR SYSTEM: regular, normal S1, S2 without murmurs, rubs, or gallops ABDOMEN: soft, normal active bowel sounds, no masses, no organomegaly, diffusely tender and scaring healed, multiple stretch munroe The following impressions and plan were made together with the consulting pain specialist Buzz Montero M.D. Doctor did not examin I did discuss this case with him. IMPRESSIONS: 789.00BQ CHRONIC ABDOMINAL PAIN nococeptive and myofacial pain with weakness of the abdominal wall following multiple abdom inal surgeries. 723.1L CERVICAL PAIN Mechanical and myofacial pain No neuropathy, myopathy or radiculopathy No imaging to review discogenic vs facetogenic 719.40 Joint pain 719.40: does not meet cirteria for fibromyalgia with the tenderpoints tod ay, she is however very deactivated and deconditioned and she has metabolic disorders that a re likely contributing to her fatigue, and arthralgia and myalgia, sleep apnea to her fatigu e and depression. 311G DEPRESSION At Least 50% of this 60 minute visit was spent in reviewing prior progess notes, imaging st udies and in counselling/education with the patient on our planned continuity of care. RECOMMENDATIONS/PLAN: 1. Patient instructed to follow up with Dr Brenda SHEEHAN to review our recommendations/plan a nd to commence therapy as appropriate. 2. Patient will be referred for a Physical Therapy evaluation here at the [facility]. 3. Patient will be referred for a Psychology evaluation here at the [facility]. 4. Following the completion of these evaluations, this case will be discussed at our Multid isciplinary Patient Care Conference [MPCC] and the patient contacted with follow up plan of care. 5. I recommend a self help book for improving pain coping and adaptation called "Managing P ain Before It Manages You" by Mariama Canela. 6. Belinda was asked to bring in any imaging that she has( including films)had of her spine, to please bring with her at the next visit with PT. 7. No further recommendations at this point. Dr. Brenda Noriega.; I want to thank you for referring Belinda Meehan to the [facility] [place] for a chronic pain management evaluation. I trust that you will find the recomm endations satisfactory and that you will be able to implement these in the care of your mehreen ent. Should you have any concerns or questions, please contact me, I would be happy to add ress those with you. DELFINA MOLINA [facility] [place] Mail code CH 4P [place] [facility] [address] [place] [id number] metimothy Tasha - 05/29/2006 1:51 PM PSTInitial Evaluation Questionnaire Responses 1. When did your pain problems begin: unknown Duration of pain in months: unknown 2. If this is a flare up, give date flare-up started: on going Duration of flare up in months: on going 3. Under what circumstances did your pain begin: pain just began with no known cause What happened (describe in more detail): unanswer 4. Please rank order your main painful areas from worst to next worst: Worst: head, face, mouth Next Worst: upper shoulder and upper limbs 5. Have you ever been treated at another pain management center or program? no 6. In the past 12 months, how many times have you been to the emergency room for your pain problem: 12+ 7. With urination, do you experience: incomplete urination/retention 8. Is it easy to pass your bowel movements? How often do you have a bowel movement: 2-5 per day 9. Have there been changes/problems in your sexual function? What do you believe is causing the problem(s)? yes I do not have sex 10. How much sleep to you average each night? 4 hours 11. How much do you sleep/nap during the day? 1-3 hours 12. Is your sleep disturbed at night? yes, because of pain and urination 13. Have you ever had thoughts of: -suicide or harming yourself? no -harming someone else? no 14. Have you ever been under the care of a mental health professional? no 15. Are you, or have you ever been, involved with any of the following? -Caffeine-containing beverages: Current use -Marijuana use: No If currently used, do you have a medical marijuana card? -Cocaine: No -Methamphetamine: No -Heroin: No -Other illicit/street drug use: No 16. CAGE QUESTIONNAIRE -Have you ever felt the need to cut down on your drinking? no -Have you ever felt annoyed by people complaining about your drinking? no -Have you ever felt guilty about your drinking? no -Do you ever drink an eye-ballast cleaning machine operator in the morning to relieve the shakes? no 17. Has your job changed because of your painful conditions? yes If yes, how?:dissabled 18. What exercise or recreational activities do you enjoy? sewing,crossstitching,swimming,w alking 19. Are you, or have you ever been, involved with any of the following? Disability: Not yet receiving or seeking disability Litigation/Lawsuit(s): No (and not intending) pain-related litigation/lawsuit or legal invo lvements Motor vehicle accidents: Pain not related to motor vehicle accident Do you have any other litigation or lawsuits ongoing, pending, planned, or under considerat ion? no If yes, explain: 20. Have you ever been convicted of any crimes or felonies? no If yes, explain: 21. Are you under financial stress? yes If yes, explain: 22. Have there been any other stressful life experiences recently? 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 What do you expect from our pain program? Help in coping with the pain 24. What types of treatment do you expect from your visits to the [facility] ? Stress Management documented in this encounter Plan of Treatment Not on filedocumented as of this encounter Visit Diagnoses + + | Diagnosis | + + | Chronic abdominal pain Abdominal pain, unspecified site | + + | Cervical pain Cervicalgia | + + | Joint pain 719.40 Pain in joint, site unspecified | + + | Depression Depressive disorder, not elsewhere classified | + + documented in this encounter
--- OUTSIDE RECORDS SUMMARY | ~2019-11-17 | XMS | Encounter Summary ---
Demographics + + + | Address | [address] | | | [place] [address] | + + + | Home Phone [...] Providers + +------+ + | Care Supervisor Ticket Sales Name | Role | Phone | [...] 10/07/ | Office | [facility] at [facility] | Lukasz Charles, | Major Depressive | | 2006 | Visit | [address] | PhD [address] | Disorder, Recurrent | | | | Mailcode: CH15P | 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 [place] | | Chronic Abdominal | | | | [address] | | Pain; Adjustment | | | | [phone] | | Disorder with | | | [...] this encounter Progress Notes Lukasz Charles - 10/07/2006 11:10 AM PDTPROGRESS NOTE: Belinda [...] will need to continue self-c are. Diagnosis: [place] I: 1. (296.32) Major depressive disorder, recurrent, moderate. 2. (309.24) Adjustment disorder with anxiety. 3. 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 [place] II: Deferred [place] III: abdominal pain, migraine headache, low back pain. [place] IV: low finances [place] V: GAF 50 Plan: Return in 2 weeks. Schedule 4 follow-up appointments. Check preparation for move and for niece's visit. Check [employer] gym, pacing, relaxation, activity, distraction. Check "Managin g Pain..." book. Continue cognitive/behavioral therapy. Total time spent with patient was approximately 45 minutes. LUKASZ CHARLES PHD [facility] [address] [facility] [place] [address] documented in this encount er Plan of Treatment + + +--------+ + + | Name | Type | Priori | Associated Diagnoses | Order Schedule | | | | ty | | | + + +--------+ + + | RI PSYCHOTHERPY, | Procedures | Routin | Major Depressive | Ordered: 10/07/2006 | | OFFICE (45-50) | | e | Disorder, Recurrent | | | | | | Episode, Moderate | | | | | | ([facility]) Spondylosis | | | | [...]
--- OUTSIDE RECORDS SUMMARY | ~2019-11-17 | XMS | Encounter Summary ---
Demographics + + + | Address | [address] | | | [place] [address] | + + + | Home Phone [...] Team Providers + +------+ + | Care Pharmacology Associate Name | Role | Phone | [...] as of this encounter Progress Notes Interface, Edge Burnisher Uppers In - 10/30/2005 2:06 AM PDT [id number] GEOVANNI Barnes [id number] Clinic Date: 10/23/2005 Clinic: Ms. Meehan comes in today for followup of her abdominal CT. The CT is normal. We will follow her for abdominal pain. I will see her again in 3 months. If she has exacerbation, she can come earlier. I also gave her 30 tablets of 5 mg oxycodone for the pain. Chris Padgett M.D. CD / [id number] / [id number] / [id number] / Electronically signed by Chris Padgett 10-29-2005 10:10:39 AM documented i n this encounter Plan of Treatment Not on filedocumented as of this encounter Visit Diagnoses Not on filedocumented in this encounter"
--- OUTSIDE RECORDS SUMMARY | ~2019-11-17 | XMS | Encounter Summary ---
Demographics + + + | Address | [address] | | | [place] [address] | + + + | Home Phone [...] Team Providers + +------+ + | Care Crepe Laminator Operator Name | Role | Phone | [...] | | | | | laterality | [address] | [address] | | | | | Dysfunction | Phone: | Phone: | | | | | of left | [phone] | [phone] | | | | | eustachian | Fax: | Fax: | | | | | tube | [phone] | [phone] | +--------+ + + + + + [...] [place], | unspecified | | | | [place], [place] | [place] [address] | laterality (Primary | | | | [address] | [phone] | Dx); Dysfunction of | | | | [phone] | | left eustachian tube | +--------+ [...] | | | | | | [address] [place] | | | | | | [place] [address] | | | | | | [phone] | | | | | | | | +--------+---------+ + + + | 12/20/ | Office | Otolaryngology | Ulysses Genao MD | | | 2019 | Visit | | [address] [place] | | | | | | [address] [place], | | | | | | [place] [address] | | | | | | [phone] | | | | | | | | +--------+---------+ + + + | 02/15/ | Office | Internal Medicine | Alanis, | | | 2019 | Visit | | [place] | | | | | | [address] [place] | | | | | | [place] [address] | | | | | | [phone] | | | | | | | | +--------+---------+ + + + + + +--------+ + + | Name | Type | Priori | Associated Diagnoses | Order Schedule | | | | ty | | | + + +--------+ + + | * [facility] | Outpatient | Routin | Benign paroxysmal [...]
--- OUTSIDE RECORDS SUMMARY | ~2019-11-17 | XMS | Encounter Summary ---
Demographics + + + | Address | [address] | | | [place] [address] | + + + | Home Phone [...] Team Providers + +------+ + | Care Principal Process Engineer Name | Role | [...] | | | | | Procedures | [address] | | | | | | CONSULT TO | Mychal Kovacs | | | | | | NEUROLOGY | [place], [place] | | | | | | | [address] | | +--------+--------+ + + + + Reason for Visit + + + | Reason | Comments | + + + | Back pain | | + + + Encounter Details +--------+---------+ + + + | Date | Type | Department | Care Team | Description | +--------+---------+ + + + | 10/03/ | Office | [facility] Comprehensive | Miranda Lambert, | Falling; | | 2009 | Visit | Pain Center at | ANP | Fibromyalgia; LBP | | | | [facility] | | (low back pain); | | | | [address] | | Encounter for | | | | Mailcode: CH15P | | Long-Term (Current) | | | | [facility] | | Use of Opioids; | | | | and Healing, | | Hypothyroidism; | | | | | | Metabolic syndrome X | | | | Floor [place], [place] | | 250.80; Major | | | | [address] | | depressive disorder, | | | | [phone] | | recurrent episode, | | | [...] Schedule an appointment with Dr. Cesar SHEEHAN [facility] Neurology - If you continue to fall [...] Belinda Meehan is a 49 y.o. female [facility] Return Visit [...] rays of back no head imaging [facility]. Denies other medical visit s panic attacks, [...] drawing has be completed, which I reviewed. [facility] Brief Pain Inventory: (ten= worst possible pain or complete interference) Right Now: 8 (10/03/091312) Least in 24 hours: 5 (10/03/091312) Worst in 24 hours: 8 (10/03/091312) Average: 60 (10/03/091312) % Relief (med/treat): 8 (10/03/091312) General Activity: 8 (10/03/091312) Mood: 8 (10/03/091312) Walking Ability: 3 (04/21/10 1313) Normal Work: 10 (10/03/09 1313) Relations with Others: 8 (10/03/09 1313) Enjoyment of Life: 7 (10/03/09 131) Sleep: 9 (10/03/09 131) Treatment since last visit includes: 1. Medication management: Robaxin bid, OTC denies use 2. Physical Rehabilitation: non exercise routine, "would do more if if was nice outside" 3. Mental Health care: Counsellor finding it no help 4. Dr. Ricky SHEEHAN [facility] spine did spine surgery last seen [...] 08/2007 right knee Hx lumbar fusion 05/2008 [id number] with bone spur removals Hx appendectomy Hx cholecystectomy Hx section Hx hysterectomy Gastric bypass Mayra Padgett wt 278 01/18 Paniculectomy Family History Problem Relation Cancer Mother Heart Father Additional Family History Father Migraine Additional Family History Mother Migraine Taniya Guerrero MD [facility] Neurology 2007 evaluation of migraines: Impression: Belinda [...] the names of 3 headache specialists in [place]- Dr. Koby García, Dr. Dakota Sweet and [...] a neurologist Dr. Taniya Guerrero here at [facility] at that time headaches were due to medication rebound with fci use of opioids and m igraine abortive [...] and there is no evidence to support fci benefit of opioids for this pa in [...] to schedule a follow up appointment with [facility] neurologists Dr. Guerrero, for falls workup. Dr. [...] to taper off gabapentin 2. Order for [facility] neurology Dr. Taniya Guerrero if falls continue [...] [facility] Mail code CH 4P [facility] [address] [place] [id number] Ailyn Foster 1:03 PM PDTCMA History: [...]
--- OUTSIDE RECORDS SUMMARY | ~2019-11-17 | XMS | Encounter Summary ---
Demographics + + + | Address | [address] | | | [place] [address] | + + + | Home Phone [...] Providers + +------+ + | Care Federal District Law Clerk Name | Role | Phone | + +------+ + | Pedrito Gutierrez MD | PCP | | + +------+ + Encounter Details +--------+ + + + + | Date | Type | Department | Care Team | Description | +--------+ + + + + | 05/05/ | Office | [facility], | Clinic, [...] as of this encounter Progress Notes Interface, Factory Focus Technician In - 06/23/2006 2:36 AM PST [id number] GEOVANNI SKELTON Molly [id number] Clinic Date: 05/05/2006 Clinic: Endocrinology Subjective: Belinda Meehan is a 46-year-old woman who underwent gastric bypass surgery in November 2003 and reduced her body weight from a peak of above 333 pounds down to her current weight of 195 pounds. Her other medical problems include chronic severe refractory abdominal pain of unknown etiology for several months, type 2 diabetes mellitus, hypertension, secondary hyperparathyroidism resulting from vitamin D deficiency, migraine headaches, history of smoking, asthma, obstructive sleep apnea, restless legs syndrome, and metabolic syndrome. Her primary problem at this point is refractory severe abdominal pain. The location of the pain varies from her lower abdomen, mid abdomen, upper abdomen, or diffusely across her whole abdomen. The pain during recent weeks seems to occur most often in the evening. She has been unable to identify specific food types that contribute to the pain. The pain is a daily occurrence. Fortunately, she was finally able to schedule an appointment in the [facility]astroenterology Clinic and recently underwent colonoscopy and upper esophagogastroduodenoscopy. She is scheduled to return to the Gastroenterology Clinic next Thursday and Thursday for a repeat esophagogastroduodenoscopy study as well as a small-bowel follow-through videocamera study to try to identify the etiology of her severe abdominal pain. She is quite discouraged about the lack of progress in identifying the cause of this problem, as well as identifying effective treatments other than taking major pain medication. She had surgery on her right thumb in [place] last week, presumably for removal of a neuroma. Medications: 1. Omeprazole 20 mg daily. 2. Promethazine 25 mg daily. 3. Vitamin B12 1000 mcg intermuscularly every month. 4. Wellbutrin XL 300 mg daily. 5. Propranolol 60 mg once daily. 6. Belladonna alkaloid 3 tablets daily. 7. Oxycodone 5 mg, 2 tablets by mouth every 4 hours p.r.n. 8. Geritol Tonic with iron 2 teaspoons daily. 9. Multivitamin 1 p.o. b.i.d. 10. Docusate sodium 100 mg p.o. b.i.d. 11. Calcium with Vitamin D 600 mg, 4 tables daily. 12. Vitamin C 500 mg p.o. b.i.d. 13. Magnesium 400 mg p.o. b.i.d. 14. Vitamin E 400 units daily. 15. Betoptic S 0.25%, 2 drops daily in each eye. 16. Glucosamine/chondroitin sulfate 1500 mg daily. Physical Examination: Vital Signs: Weight 195 pounds (increased 3.9 pounds compared to January 29, 2006) and blood pressure 104/72, pulse 74 beats per minute and regular. General: She was alert and in no acute distress. Mood was within normal limits. Cardiac: Regular rate and rhythm. No murmur, S3, S4, or rubs. No JVD. Pulses were within normal limits. Abdomen: No hepatosplenomegaly or masses. She had diffuse moderate tenderness with palpation of her abdomen. Hyperactive bowel sounds diffusely. Extremities: She had no pretibial edema. In summary, Belinda Meehan has a number of medical problems, noted above. She continues to suffer from severe abdominal pain of unknown etiology. She will have continued work up next week, as noted above. I recommended that she try an empiric trial of treatment with Gas-X since the portion of her abdominal pain might be related to tethering of her small and large bowel at sites of adhesions, which may be exacerbated by large bubbles of gas passing through her bowel. Plan: 1. Await followup laboratory studies next week. 2. Continue work up with Dr. Arreola in the Gastroenterology Clinic regarding severe abdominal pain. 3. Empiric trial of Gas-X. 4. She may require a left knee replacement. Beto Meeks M.D. PD / HS [id number] / [id number] / [id number] / cc: Pedrito Gutierrez M.D. [address] [place] [address] Joanna Arshad M.D. [facility] Electronically signed by Beto Meeks 06-20-2006 11:48:11 PM documented i n this encounter Plan of Treatment Not on filedocumented as of this encounter Visit Diagnoses Not on filedocumented in this encounter"
--- OUTSIDE RECORDS SUMMARY | ~2019-11-17 | XMS | Encounter Summary ---
Demographics + + + | Address | [address] | | | [place] [address] | + + + | Home Phone [...] Team Providers + +------+ + | Care Regional Account Executive Name | Role | Phone | + +------+ + PCP | Unavailable | + +------+ + Encounter Details +--------+ + + + + | Date | Type | Department | Care Team | Description | +--------+ + + + + | 09/14/ | Hospital | [facility] | Ruben Tobias | | | 2001 | Encounter | MED CTR SLEEP | MD Raji [address] | | | | | [place] [address] | [address] [facility] | | | | | [place], [place] | [place] [address] | | | | | [address] | [phone] | | | | | [phone] | | | +--------+ + + + [...] | | | | | [place] [address] | | | | | | [phone] | | | | | | | | +--------+---------+ + + + | 12/20/ | Office | Otolaryngology | Ulysses Genao MD | | | 2019 | Visit | | [address] | | | | | | [address] [place], | | | | | | [place] [address] | | | | | | [phone] | | | | | | | | +--------+---------+ + + + | 02/15/ | Office | Internal Medicine | Alanis, | | | 2019 | Visit | | MD Petrona | | | | | | [address] [place] | | | | | | [place] [address] | | | | | | [phone] | | | | | | | | +--------+---------+ + + + documented as of this encounter Visit Diagnoses Not on filedocumented in this encounter"
--- OUTSIDE RECORDS SUMMARY | ~2019-11-17 | XMS | Encounter Summary ---
Demographics + + + | Address | [address] | | | [place] [address] | + + + | Home Phone [...] Providers + +------+ + | Care Automatic Car Wash Attendant Name | Role | Phone | [...] + + | 03/03/ | Telephone | [facility] | Alanis, | Medication Question | | 2017 | | MEDICINE [address] [place] [address] | MD [place]ron[place] | | | | | [facility] | [address] [place] [address] | | | | | [place] [address] | [place] [address] | | | | | [phone] | [phone] | | | | | | | [...] | | | | | [place] [address] | | | | | | [phone] | | | | | | | | +--------+---------+ + + + | 12/20/ | Office | Otolaryngology | Ulysses Genao MD | | | 2019 | Visit | | [address] [place] | | | | | | [address] [place] | | | | | | [place] [address] | | | | | | [phone] | | | | | | | | +--------+---------+ + + + | 02/15/ | Office | Internal Medicine | Alanis, | | | 2019 | Visit | | MD [place] | | | | | | [address] | | | | | | [place] [address] | | | | | | [phone] | | | | | | | | +--------+---------+ + + + documented as of this encounter Visit Diagnoses Not on filedocumented in this encounter"
--- OUTSIDE RECORDS SUMMARY | ~2019-11-17 | XMS | Encounter Summary ---
Demographics + + + | Address | [address] | | | [place] [address] | + + + | Home Phone [...] + +------+ + | Care Filter Tip Inspector Name | Role | Phone | [...]
--- OUTSIDE RECORDS SUMMARY | ~2019-11-17 | XMS | Encounter Summary ---
Demographics + + + | Address | [address] | | | [place] [address] | + + + | Home Phone [...] Providers + +------+ + | Care Home Health Manager Name | Role | Phone | + +------+ + PCP | Unavailable | + +------+ + Encounter Details +--------+ + + + + | Date | Type | Department | Care Team | Description | +--------+ + + + + | 03/15/ | Results | Endocrinology, | Beto Meeks MD | | | 2001 | Only | Diabetes and | [address] | | | | | Clinical Nutrition | [place], [place] | | | | | [address] | [address] | | | | | Loop Mailcode: OPC5 | [phone] | | | | | Outpatient Clinic | | | | | | [facility] | | | | | | [place] [address] | | | | | | [phone] | | | +--------+ + + + [...] + | COMPLETE METABOLIC | Routin | 03/15/2002 | | Results for this | | [...] + | CK, PLASMA | Routin | 03/15/2002 | | Results for this | | | e | 2:16 PM | | procedure are in the | | | | PDT | | results section. | + +--------+ + + + documented in this encounter Results COMP METABOLIC SET (03/15/2002 2:16 PM PDT) + +--------+ + + + | Component | Value | Ref Range | Performed | Pathologist | | | | | At | Signature | + +--------+ + + + | GLUCOSE, | 95 | 65 - 110 mg/dL | [facility] [...] +--------+ + + + | CREATININE | 0.6 | 0.6 - 1.1 mg/dL | [facility] | | | PLASMA | | | DEPARTMENT | | | (LAB) | | | OF | | | | | | PATHOLOGY | | + +--------+ + + + | TOTAL | 7.2 | 6.1 - 7.9 g/dL | [facility] | | | PROTEIN, | | | DEPARTMENT | | | PLASMA | | | OF | | | (LAB) | | | PATHOLOGY | | + +--------+ + + + | ALBUMIN, | 4.0 | 3.5 - 4.7 g/dL | [facility] | | | PLASMA | | | DEPARTMENT | | | (LAB) | | | OF | | | | | | PATHOLOGY | | + +--------+ + + + | CALCIUM, | 9.7 | 8.5 - 10.5 | [facility] | | | PLASMA | | mg/dL | DEPARTMENT | | | (LAB) | | | OF | | | | | | PATHOLOGY | | + +--------+ + + + | BILIRUBIN | 0.7 | 0.3 - 1.2 mg/dL | [facility] | | | TOTAL | | | DEPARTMENT | | | | | | OF | | | | | | PATHOLOGY | | + +--------+ + + + | ALK PHOS | 88 | 42 - 98 U/L | [facility] | | | | | | DEPARTMENT | | | | | | OF | | | | | | PATHOLOGY | | + +--------+ + + + | AST(SGOT) | 63 (H) | 15 - 41 U/L | [facility] | | | | | | DEPARTMENT | | | | | | OF | | | | | | PATHOLOGY | | + +--------+ + + + | SODIUM, | 138 | 136 - 145 | [facility] | | | PLASMA | | mmol/L | DEPARTMENT | | | (LAB) | | | OF | | | | | | PATHOLOGY | | + +--------+ + + + | POTASSIUM, | 4.3 | 3.5 - 5.1 | [facility] | | | PLASMA | | mmol/L | DEPARTMENT | | | (LAB) | | | OF | | | | | | PATHOLOGY | | + +--------+ + + + | CHLORIDE, | 105 [...] | + +--------+ + + + | ALT (SGPT) | 71 (H) | 13 - 48 U/L | [...] DEPARTMENT OF | [address] | [place] [address] | | | PATHOLOGY | [address] | | | + + + + + | [facility] DEPARTMENT OF | [address] | [place] [address] | | | PATHOLOGY | [address] | | | + + + + + CK (03/15/2002 2:16 PM PDT) + +-------+ + + + | Component | Value | Ref Range | Performed | Pathologist | | | | | At | Signature | + +-------+ + + + | CK | 85 | 38 - 234 U/L | [facility] [...] | + + + + + | [facility] | [address] | [place] [address] | | | PATHOLOGY | [address] | | | + + + + + | [facility] | [address] | [place] [address] | | | PATHOLOGY | [address] | | | + + + + + documented in this encounter Visit Diagnoses Not on filedocumented in this encounter"
--- OUTSIDE RECORDS SUMMARY | ~2019-11-17 | XMS | Encounter Summary ---
Demographics + + + | Address | [address] | | | [place] [address] | + + + | Home Phone [...] Team Providers + +------+ + | Care Homeowner Association Manager Name | Role | Phone | [...] + + | 09/16/ | Telephone | [facility] | Miranda Lambert, | Memory loss | | 2006 | | Pain Center at | ANP | | | | | [facility] | | | | | | [address] | | | | | | Mailcode: CH15P | | | | | | [facility] | | | | | | and Healing, | | | | | | Building | | | | | | Floor [place], [place] | | | | | | [address] | | | | | | [phone] | | | +--------+ + + + [...]
--- OUTSIDE RECORDS SUMMARY | ~2019-11-17 | XMS | Encounter Summary ---
Demographics + + + | Address | [address] | | | [place] [address] | + + + | Home Phone [...] Providers + +------+ + | Care Marketing Development Manager Name | Role | Phone | + +------+ + | Petrona Thapa | PCP | | | MD | | | + +------+ + Reason for Visit + + + | Reason | Comments | + + + | Medication Refill | | + + + | Infusion | Reclast due approx 07/29/17, last one done at the [facility] | + + + Encounter Details +--------+---------+ + + + | Date | Type | Department | Care Team | Description | +--------+---------+ + + + | 07/16/ | Office | [facility] | Emmy-Tajti, | Other osteoporosis, | | 2018 | Visit | MEDICINE [address] | MD Petrona | unspecified | | | | [address] [place] | [address] [facility] | pathological | | | | [place] [address] | [place] [address] | fracture presence | | | | [phone] | [phone] | (Primary Dx); | | | | [...] approx 07/29/17, last one done at the [facility] Belinda Meehan is a 57 y.o. [...] She is seeing a pain specialist in [place] and is receiving hydrocodone from them. She needs a refill of Lomotil for chronic diarrhea which she tolerates well. She also reports some discomfort in the left nostril which is plugged most of the time for last several weeks. No fever or chills. No purulent drainage. Has history of allergies. REVIEW OF SYSTEMS See [facility] for further details. Review of systems otherwise negative. PAST MEDICAL HISTORY Past Medical History: Diagnosis Date Arthritis Atypical chest pain Benign essential hypertension Blind left eye Cervical radiculopathy Chronic low back pain 01/04/2015 Chronic neck pain 01/04/2015 Chronic pain Chronic venous insufficiency Coccydynia COPD (chronic obstructive pulmonary disease) ([facility]) Depression Diarrhea Dumping syndrome Fatigue fracture of vertebra Fibromyalgia Glaucoma Hyperparathyroidism (HCC) Hypothyroidism IBS (irritable bowel syndrome) Idiopathic scoliosis Leg edema Lumbar postlaminectomy syndrome Lumbar radiculopathy primarily right 01/04/2015 Meniere syndrome Migraines Muscle cramping Muscle spasm Myalgia Nonalcoholic hepatosteatosis Obesity Opiate dependence (HCC) Orthostatic hypotension OLIVER (obstructive sleep apnea) Osteoarthritis, generalized Osteopenia Osteoporosis Peripheral neuropathy ([facility]) Rheumatoid arthritis ([facility]) Right arm pain 01/04/2015 RLS (restless legs syndrome) S/P lumbar fusion 01/04/2015 Scoliosis Spondylosis with myelopathy, lumbar region Stroke ([facility]) Syncope Tremor Type II or [...] (See Comments) Confused and questionable for seizures Szkbdvfzuu-Yfim-Xnzaymua Cephalexin Hives Duloxetine Migraines and nausea Ketorolac Hives Morphine Swelling Ropinirole Hcl Hives Tramadol Hcl Nausea Only Dlmtdwffsp-Mspl-Yhdbxkxh Hives and Rash Ciprofloxacin Hives and Rash [...] Note: Parts of this documentwere created using [employer] speech recognition software. As a r esult, [...] | | | | | [place] [address] | | | | | | [phone] | | | | | | | | +--------+---------+ + + + | 12/20/ | Office | Otolaryngology | Ulysses Genao MD | | | 2019 | Visit | | [address] | | | | | | [address] [place], | | | | | | [place] [address] | | | | | | [phone] | | | | | | | | +--------+---------+ + + + | 02/15/ | Office | Internal Medicine | Alanis, | | | 2019 | Visit | | MD [place]ron[place] | | | | | | [address] [place] | | | | | | [place] [address] | | | | | | [phone] | | | | | | | [...]
--- OUTSIDE RECORDS SUMMARY | ~2019-11-17 | XMS | Encounter Summary ---
Demographics + + + | Address | [address] | | | [place] [address] | + + + | Home Phone [...] Team Providers + +------+ + | Care Fisher Hoop Net Name | Role | Phone | + +------+ + PCP | Unavailable | + +------+ + Encounter Details +--------+ + + + + | Date | Type | Department | Care Team | Description | +--------+ + + + + | 10/20/ | Results | General Surgery | Chris Padgett, | | | 2005 | Only | [address] | [address] | | | | | Loop Mailcode: | [address] | | | | | L[address] Physician's | [place], [place] | | | | | [address] | [address] | | | | | [place], [place] | [phone] | | | | | [address] | | | | | | [phone] | | | +--------+ + + + [...] | | | | | | gallbladder fossa. | | | | | | Thereis no biliary | | | | | | duct dilation. | | | | | | Pancreas, spleen, left | | | | | | adrenalgland, and left | | | | | | kidney are normal. | | | | | | There is a punctate | | | | | | [...] | | | | | | adrenal adenoma. | | | | | | Retroaorticleft renal | | | | | | vein is incidentally | | | | | | noted. PELVIS: Bladder | | | | | | is unremarkable. | | | | | | Uterus is surgically | | | | | | absent.Ovaries are not | | | | | | identified and are | | | | | | likely absent as well. | | | | | | Thereis no adnexal | | | | | | mass. There is no | | | | | | abdominal-pelvic | | | | | | adenopathy orascites. | | | | | | Postsurgical changes | | | | | | are noted following | | | | | | gastric bypasssurgery | | | | | | with Zoe-en-Y | | | | | | [...] | | | | | | salpingo oophorectomy. | | | | | | No acuteabnormality. | | | | + + + + + + + + | Specimen | + + | | + + + +---------+ + + | Performing | Address | City/State/[facility] | Phone Number | | Organization | | | | + +---------+ + + | [facility] DEPARTMENT OF | | | | [...] | | | | | | gallbladder fossa. | | | | | | Thereis no biliary | | | | | | duct dilation. | | | | | | Pancreas, spleen, left | | | | | | adrenalgland, and left | | | | | | kidney are normal. | | | | | | There is a punctate | | | | | | [...] | | | | | | adrenal adenoma. | | | | | | Retroaorticleft renal | | | | | | vein is incidentally | | | | | | noted. PELVIS: Bladder | | | | | | is unremarkable. | | | | | | Uterus is surgically | | | | | | absent.Ovaries are not | | | | | | identified and are | | | | | | likely absent as well. | | | | | | Thereis no adnexal | | | | | | mass. There is no | | | | | | abdominal-pelvic | | | | | | adenopathy orascites. | | | | | | Postsurgical changes | | | | | | are noted following | | | | | | gastric bypasssurgery | | | | | | with Zoe-en-Y | | | | | | [...] | | | | | | salpingo oophorectomy. | | | | | | No acuteabnormality. | | | | + + [...]
--- OUTSIDE RECORDS SUMMARY | ~2019-11-17 | XMS | Encounter Summary ---
Demographics + + + | Address | [address] | | | [place] [address] | + + + | Home Phone [...] Providers + +------+ + | Care Machine Setter Name | Role | Phone [...] | | | | Clinical Nutrition | [place], [place] | | | | | [address] | [address] | | | | | Loop Mailcode: OPC5 | [phone] | | | | | Outpatient Clinic | | | | | | [facility] | | | | | | [place] [address] | | | | | | [phone] | | | +--------+ + + + [...] + + + | [facility] | [address] | [place] [address] | | | LABORATORY | | | [...] + + + | [facility] | [address] | [place] [address] | | | LABORATORY | | | [...] Blood Test performed by | | | [facility]. | | + + + + + + + + | Performing | Address | City/State/Zipcode | Phone Number | | Organization | | | | + + + + + | [facility] | [address] | [place] [address] | | | LABORATORY | | | | + + + + + documented in this encounter Visit Diagnoses Not on filedocumented in this encounter"
--- OUTSIDE RECORDS SUMMARY | ~2019-11-17 | XMS | Encounter Summary ---
Demographics + + + | Address | [address] | | | [place] [address] | + + + | Home Phone [...] Providers + +------+ + | Care Jigger Operator Name | Role | Phone | + +------+ + | Pedrito Gutierrez MD | PCP | | + +------+ + Encounter Details +--------+---------+ + + + | Date | Type | Department | Care Team | Description | +--------+---------+ + + + | 09/23/ | Office | Comprehensive Pain | Nathalia Arora | Spondylosis with | | 2006 | Visit | [facility] | [address] | Myelopathy, Lumbar | | | | [place] [address] [place], | Region; Herniated | | | | [address] Mailcode: | [place] [address] | Lumbar | | | | [facility] [place] [facility] | | Intervertebral Disc | | | | [facility] and Healing, | | L4-5; Neck Pain; | | | | | | Fibromyalgia | | | | Floor [place], [place] | | syndrome 7[address] | | | | [address] | | | | | | [phone] | | | +--------+---------+ + + + [...] this encounter Progress Notes Nathalia Arora - 09/23/2006 3:39 PM PDTFormatting of this note might be different from lesli rodriguez original. PROGRESS NOTE: Physical Therapy Medicare Progress Note Date: 09/23/2006 Belinda Meehan [id number]. 1960 Start of Care: 06/23/2006 Referring Provider: [...] 05/29/2006 Insurance: Medicare Number of used/authorized visits: 01/21 Medicare certification from: 09/13/2006 through 10/12/2006 Subjective: Reported pain level almost 10/10, has been like this for the past week. Objective: Also just 2 weeks ago patient had another episode of falling secondary to her le gs giving out when she transferred from sitting in the car to standing; stated she's not christine e what happens, but she isn't aware it's happened until she's on the ground, and she is usin g B loftstrand crutches. Patient continues to experience intermittent locking of her left k nee joint. Patient is here today for treatment of her lowback; has noted a flare up from ov er doing activities such as shopping X 2.5 hours. Functionally, patient has increased her walking time at [place] to 30-40 minutes daily, no t able to walk outside yet because of weather conditions. She continues her back exercises diligently. Treatment: In supine hook lying: Patient demonstrated isometric lower abdominals and external obliques with B shoulder F/E w hich is not difficult for her. Progressed in core stabilization with alternating leg bracing, fatiguing after 4-5 reps on each side, X 2 sets resting a few minutes inbetween. Also added modified bridging activity, 1 set of 7 reps. Reviewed isolated stretch for hip flexors and quadriceps, also piriformis stretch, Used ski lled manual cuing for proper performance of all exercises. 15 minutes was spent on therapeutic activity 30 minutes was spent on therapeutic exercise Assessment: Patient has made progress with walking duration and home exercises; still requi res strengthening for core with skilled manual cuing for proper performance of exercise. Plan: Patient has 1 f/u visit remaining in 2 weeks and at that time will be progressed in er HEP and discharged. Because of long distance continued treatment is difficult and patien t should be able to follow up with a local therapist to address other issues. Treatment began: 1114 Treatment ended: 1199 Nathalia Arora, Physical Therapist License #[id number] documented in this encoun ter Plan of Treatment + + +--------+ + + | Name | Type | Priori | Associated Diagnoses | Order Schedule | | | | ty | | | + + +--------+ + + | [facility] THERAPEUTIC | Procedures | Routin | Spondylosis with | Ordered: 09/23/2006 | | EXERCISES | | e | [...] FL THERAPEUTIC | Procedures | Routin | Spondylosis with | Ordered: 09/23/2006 | | ACTIVITIES | | e | Myelopathy, Lumbar | [...]
--- OUTSIDE RECORDS SUMMARY | ~2019-11-17 | XMS | Encounter Summary ---
Demographics + + + | Address | [address] | | | [place] [address] | + + + | Home Phone [...] Team Providers + +------+ + | Care Residence Leasing Agent Name | Role | Phone | + +------+ + PCP | Unavailable | + +------+ + Encounter Details +--------+ + + + + | Date | Type | Department | Care Team | Description | +--------+ + + + + | 12/18/ | Office | | Report, Outpatient | [...] as of this encounter Progress Notes Interface, Mold Loft Worker In - 01/12/2005 6:32 AM PDT Referred From and Faxed To: Chris Padgett M.D., General Surgery. Referred To: Outpatient nutrition clinic. Consulting Provider: Svetlana Maki R.D. Consultation Date: 12/19/2003 Chief Complaint: Not dictated. Reason for Requested Consultation: Outpatient consultation following gastric bypass surgery on November 22, 2003. Consultation Findings and Recommendations: Telephone Consult: The patient calls into the office today at 9:15 on 12/19/2003. She has questions about diet progression following her gastric bypass surgery on November 21. Surgery was done by Chris Padgett M.D. The patient states she has lost 43 pounds since November 21. She has been doing some walking. Her reason for calling in today, she states, sometime last week she ate 1/4 of an apple and tolerated it and then she tried it again later and did not tolerate it. Her call today is to wonder why. Provided one prompt, other information: 1. Protein grams: She is eating two scoops of protein powder a day, but is not sure how much protein, in grams, that she is actually ingesting per day. She is getting 60 ounces of fluid per day. 2. Supplements: She said she was given a prescription for a multivitamin that she does like the taste of. She is going to be doing the vitamin B12 shots and she is taking two chewable calcium carbonates a day. Assessment: The patient is clearly progressing the diet much too quickly, trying to get a raw apple in, 3.5 weeks after surgery is too quick. Diet Education Provided: 1. Referred patient to reread the information presented during our preoperative visit. She is not even four weeks after surgery. She still needs to be on soft food for at least another week or two. Raw vegetables and fruits, crispy in texture, should not be in the diet for the first three months. I would recommend that she goes for softer fruit, something like a banana or a very, very ripe peach that would be blended into something like a smoothie. Talked about vitamins and minerals. The patient clearly is not resorting to the information provided. In our preoperative visit, she stated that she did not like the taste of the multivitamin prescribed to her so she was going to go to the [employer] food store and try to find another one. I referred her to our recommendations. Either Flintstones complete chewable, Centrum complete chewable or Nature-Made chewable vitamins. I also referred her to reread the information and the diet information that was provided to her before surgery, not to progress the diet too quickly. Plan: The patient's goal is to continue to lose weight. 1. Review diet information for soft foods and vitamins and mineral recommendations. 2. Continue walking everyday. 3. Keep fluid intake up by sips. 4. Have five or six small meals or snacks per day. Do not graze. 5. Followup with Dr. Chris Padgett in two months. Svetlana Maki R.D. SR/x35 P [id number] signed by Interface, Mold Loft Worker In at 01/12/2005 6:32 AM [facility] this encounter Plan of Treatment Not on filedocumented as of this encounter Visit Diagnoses Not on filedocumented in this encounter"
--- OUTSIDE RECORDS SUMMARY | ~2019-11-17 | XMS | Encounter Summary ---
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 Continue with Milam 10/325 1 tablet three times per day [...] might be different from lesli rodriguez original. 09/23/2006 Belinda Meehan is a 46 y.o. female [facility] Comprehensive Pain Center Return Visit Chief Complaint: Chief Complaint Patient presents with Pain back pain, GOTTLIEB, leg pain History of Present Illness: Belinda Meehan is a 46 y.o. year-old female with a history of chronic pain due to multiple chronic pain conditions Belinda Branes is here today for a follow up [...] Surgical History Procedure Date Gastric bypass C. Venkateney wt 278 01/18 Paniculectomy Hx cholecystectomy Hx [...] 72 hours on schedule 2. Continue with Milam 10/325 1 tablet three times per day as needed for increased pain wit h activity. 3. Continue with Trileptal 150mg, 1 tablet twice a day 4. Continue with PT and psychology as scheduled 5. Follow up with Delfina Molina in 4 weeks or sooner if needed. 6. Continue with orthopedic and neurology evaluations as scheduled DELFINA MOLINA [facility] Comprehensive Pain Center Mail code CH 4P [facility] and [address] [address] Ty Omalley - 9:28 AM PDTCMA History: PMH/PSH/SH/FH review 1. [...] Yes , Fentanyl patch [facility] in [facility] Plan of Treatment Not on filedocumented [...]
--- OUTSIDE RECORDS SUMMARY | ~2019-11-17 | XMS | Encounter Summary ---
Demographics + + + | Address | [address] | | | [place] [address] | + + + | Home Phone [...] Team Providers + +------+ + | Care Contract Negotiation Specialist Name | Role | Phone | [...] | | Osteoporosis | i, | [address] | | | | | , | Petrona | [place], | | | | | unspecified | , [address] | [place] [address] | | | | | osteoporosis | [address] | Phone: | | | | | type, | [place], | [phone] | | | | | unspecified | [place] | Fax: | | | | | pathological | [address] | [phone] | | | | | fracture | Phone: | | | | | | presence | [phone] | | | | | | Procedures | Fax: | | | | | | [place] | [phone] | | | | | | ZOLEDRONIC | | | | | | | ACID 1MG | | | +--------+ + + + + + Encounter Details +--------+ + + + + | Date | Type | Department | Care Team | Description | +--------+ + + + + | 07/20/ | Orders Only | [facility] | Alanis, | Osteoporosis, | | 2017 | | MEDICINE [address] [place] [address] | MD Petrona | unspecified | | | | [facility] | [address] [place] [address] | osteoporosis type, | | | | [place] [address] | [place] [address] | unspecified | | | | [phone] | [phone] | pathological | | | | | [...] [facility] [address] | | | | | | [address] [place] | | | | | | [place] [address] | | | | | | [phone] | | | | | | | | +--------+---------+ + + + | 12/20/ | Office | Otolaryngology | Ulysses Genao MD | | | 2019 | Visit | | [address] | | | | | | [address] [place], | | | | | | [place] [address] | | | | | | [phone] | | | | | | | | +--------+---------+ + + + | 02/15/ | Office | Internal Medicine | Neerajjti, | | | 2019 | Visit | | MD Petrona | | | | | | [address] | | | | | | [place] [address] | | | | | | [phone] | | | | | | | [...]
--- OUTSIDE RECORDS SUMMARY | ~2019-11-17 | XMS | Encounter Summary ---
Demographics + + + | Address | [address] | | | [place] [address] | + + + | Home Phone [...] Providers + +------+ + | Care Office Helper Clerical Name | Role | Phone | + [...] + + | 06/07/ | Refill | [facility] | Alanis, | Medication Refill | | 2017 | | MEDICINE [address] [place] [address] | MD Petrona | | | | | [facility] | [address] [place] [address] | | | | | [place] [address] | [place] [address] | | | | | [phone] | [phone] | | | | | | | [...] | | | | | [place] [address] | | | | | | [phone] | | | | | | | | +--------+---------+ + + + | 12/20/ | Office | Otolaryngology | Ulysses Genao MD | | | 2019 | Visit | | [address] [place] | | | | | | [address] [place], | | | | | | [place] [address] | | | | | | [phone] | | | | | | | | +--------+---------+ + + + | 02/15/ | Office | Internal Medicine | Alanis, | | | 2019 | Visit | | MD Petrona | | | | | | [address] [place] [address] [address] | | | | | | [place] [address] | | | | | | [phone] | | | | | | | | +--------+---------+ + + + documented as of this encounter Visit Diagnoses Not on filedocumented in this encounter"
--- OUTSIDE RECORDS SUMMARY | ~2019-11-17 | XMS | Encounter Summary ---
Demographics + + + | Address | [address] | | | [place] [address] | + + + | Home Phone [...] Providers + +------+ + | Care Cash Management Officer Name | Role | Phone | [...] [address] | | | | | [place], [place] | [place], [place] | | | | | [address] | [address] | | | | | [phone] | [phone] | | | | | | | [...]
--- OUTSIDE RECORDS SUMMARY | ~2019-11-17 | XMS | Encounter Summary ---
Demographics + + + | Address | [address] | | | [place] [address] | + + + | Home Phone [...] Team Providers + +------+ + | Care Seasonal Tax Preparer Name | Role | Phone | + +------+ + | Petrona Thapa | PCP | | | MD | | | + +------+ + Reason for Visit + + + | Reason | Comments | + + + | Foot Injury | | + + + Encounter Details +--------+ + + + + | Date | Type | Department | Care Team | Description | +--------+ + + + + | 11/15/ | Telephone | [facility] | Alanis, | Foot Injury | | 2019 | | MEDICINE [address] [place] [address] | MD Petrona | | | | | [facility] | [address] [place] [address] | | | | | [place] [address] | [place] [address] | | | | | [phone] | [phone] | | | | | | | [...] Visit | | [facility] [address] | | | | | | [address] [place] | | | | | | [place] [address] | | | | | | [phone] | | | | | | | | +--------+---------+ + + + | 12/20/ | Office | Otolaryngology | Ulysses Genao MD | | | 2020 | Visit | | [address] | | | | | | [address] [place], | | | | | | [place] [address] | | | | | | [phone] | | | | | | | | +--------+---------+ + + + | 02/15/ | Office | Internal Medicine | Alanis, | | | 2019 | Visit | | MD Petrona | | | | | | [address] | | | | | | [place] [address] | | | | | | [phone] | | | | | | | | +--------+---------+ + + + documented as of this encounter Visit Diagnoses Not on filedocumented in this encounter"
--- OUTSIDE RECORDS SUMMARY | ~2019-11-17 | XMS | Encounter Summary ---
Demographics + + + | Address | [address] | | | [place] [address] | + + + | Home Phone [...] Team Providers + +------+ + | Care Crab Butcher Name | Role | Phone | + [...]
--- OUTSIDE RECORDS SUMMARY | ~2019-11-17 | XMS | Encounter Summary ---
Demographics + + + | Address | [address] | | | [place] [address] | + + + | Home Phone [...] Providers + +------+ + | Care Business Intelligence Engineer Name | Role | Phone | [...] [address] | | | | | [facility] | [place], [place] | | | | | and Healing, | [address] | | | | | [facility], [facility] | [phone] | | | | | Floor [place], [place] | | | | | | [address] | | | | | | [phone] | | | +--------+ + + + [...]
--- OUTSIDE RECORDS SUMMARY | ~2019-11-17 | XMS | Encounter Summary ---
Demographics + + + | Address | [address] | | | [place] [address] | + + + | Home Phone [...] Team Providers + +------+ + | Care Division Plant Engineer Name | Role | Phone | [...] + + | 03/05/ | Telephone | [facility] | Alanis, | Vomiting | | 2018 | | MEDICINE [address] [place] [address] | MD Petrona | | | | | [facility] | [address] [place] [address] | | | | | [place] [address] | [place] [address] | | | | | [phone] | [phone] | | | | | | | [...] | Visit | | [facility] [address] | | | | | | [address] [place] | | | | | | [place] [address] | | | | | | [phone] | | | | | | | | +--------+---------+ + + + | 12/20/ | Office | Otolaryngology | Ulysses Genao MD | | | 2019 | Visit | | [address] | | | | | | [address] [place], | | | | | | [place] [address] | | | | | | [phone] | | | | | | | | +--------+---------+ + + + | 02/15/ | Office | Internal Medicine | Alanis, | | | 2019 | Visit | | MD Petrona | | | | | | [address] | | | | | | [place] [address] | | | | | | [phone] | | | | | | | | +--------+---------+ + + + documented as of this encounter Visit Diagnoses Not on filedocumented in this encounter"
--- OUTSIDE RECORDS SUMMARY | ~2019-11-17 | XMS | Encounter Summary ---
Demographics + + + | Address | [address] | | | [place] [address] | + + + | Home Phone | | + + + | Preferred Language | Unknown | + + + | Marital Status | | + + + | Latter-Day Affiliation | 1001 | + + + | Race | Unknown | + + + | Ethnic Group | Unknown | + + + Author + + + | Author | [facility] | | | and [place] | + + + | Organization | [facility] | | [...] Providers + +------+ + | Care Senior Game Developer Name | Role | Phone | [...] + + | 01/05/ | Telephone | [facility] | Luther Brito MD | Results | | 2018 | | GASTROENTEROLOGY | [address] [facility] | | | | | [address] [facility] | [place], [place] | | | | | [address] [place], [place] | [address] | | | | | [address] | [phone] | | | | | [phone] | | | +--------+ + + + [...] | | | | | [place] [address] | | | | | | [phone] | | | | | | | | +--------+---------+ + + + | 12/20/ | Office | Otolaryngology | Ulysses Genao MD | | | 2019 | Visit | | [address] | | | | | | [address] [place], | | | | | | [place] [address] | | | | | | [phone] | | | | | | | | +--------+---------+ + + + | 02/15/ | Office | Internal Medicine | Alanis, | | | 2019 | Visit | | MD Petrona | | | | | | [address] | | | | | | [place] [address] | | | | | | [phone] | | | | | | | | +--------+---------+ + + + documented as of this encounter Visit Diagnoses Not on filedocumented in this encounter"
--- OUTSIDE RECORDS SUMMARY | ~2019-11-17 | XMS | Encounter Summary ---
Demographics + + + | Address | [address] | | | [place] [address] | + + + | Home Phone [...] Providers + +------+ + | Care Sheet Rock Installation Helper Name | Role | Phone | + +------+ + PCP | Unavailable | + +------+ + Encounter Details +--------+ + + + + | Date | Type | Department | Care Team | Description | +--------+ + + + + | 05/09/ | [facility] | | Letter, Clinic | Letters | | 2002 | scribed | | | | +--------+ [...] as of this encounter Progress Notes Interface, Channeler Outsole In - 11/19/2005 3:09 AM PDT [place] [facility] [address] [place] [address] or May 09, 2003 Pedrito Gutierrez M.D. [address] [place] [address] RE: BELINDA MEEHAN MR #: [id number] Dear Dr. Gutierrez: I had the pleasure of seeing Belinda Meehan again today in the [facility] Disorders Clinic. She is proceeding along the pathway toward gastric bypass surgery. She attended the informative group meeting last night and will be seeing the nurse practitioner this afternoon. She continues to have chronic severe fatigue, lethargy, weakness, and decreased stamina. She has been feeling worse recently, possibly in relation to some type of infection that has occurred in her left groin area under her abdominal pannus. She was seen in the Emergency Room 2 or 3 days ago and was given azithromycin for a possible cellulitis in this area. She had been taking phentermine until about November 2002 or December 2002. She discontinued the medicine because of daily headaches in the absence of hypertension. The headaches have improved since discontinuing the phentermine, but unfortunately, her weight has increased by about 16 pounds. She temporarily tried taking Tenuate Dospan 75 mg every morning as a substitute for the phentermine, but this medication also caused daily headaches, therefore, she has not taken any phentermine or Tenuate for about 2 months. Her weight was 330.9 pounds which had increased another 1.5 pounds since January 31, 2003. Blood pressure 116/74 mmHg, heart rate 62 beats per minute and regular. The infected area in her left groin had a very interesting appearance which consisted of a central 3-mm ulcer-like lesion surrounded by an approximately 5-cm diameter erythematous ring with central clearing. She had another erythematous ring-like lesion lower in her groin also which had central pallor. The appearance of this lesion was similar to the hallmark lesion associated with acute infection with Lyme disease. She does not remember receiving any tickbites, but the lesion in her groin has the appearance of a possible infected tickbite. Therefore, it would be reasonable to do serologic testing in future and possibly now, for assessment of possible acquisition of Lyme disease. We encouraged her to continue taking the azithromycin but followup with you within the next 2 days to ensure that the area of infection is improving. At the time of her last visit in January 2003, her serum glucose concentration was 146 mg/dL, which was a postprandial value. Nonetheless, in light of her high risk of type 2 diabetes, the current unusual infection in her groin, and the previously-elevated glucose level, it is important for her to have a repeat measurement of serum glucose as well as a hemoglobin A1c determination. I had ordered this test to be done today, but it appears that she may have not had the chance to do this testing prior to leaving the clinic. Therefore, I assume she will be having this testing done through your clinic in [place]. I will plan to see her again in about 2 or 3 months. She will forgo trying any new appetite-suppressive medications, but she probably will try an empiric trial of lower dose phentermine to see if she can tolerate this without developing headaches. In the meantime, please feel free to contact me if you have other questions, suggestions, or concerns regarding her condition. Sincerely, Issac Meeks M.D. garment turner, Division of Endocrinology, Diabetes, and Clinical Customer Support Coordinator, [facility] Disorders Clinic PBD / HS [id number] / [id number] / [id number] / Tdocumented in this encounter Plan of Treatment Not on filedocumented as of this encounter Visit Diagnoses Not on filedocumented in this encounter"
--- OUTSIDE RECORDS SUMMARY | ~2019-11-17 | XMS | Encounter Summary ---
Demographics + + + | Address | [address] | | | [place] [address] | + + + | Home Phone [...] Providers + +------+ + | Care Director Life Sales Name | Role | Phone | + +------+ + | Petrona Thapa | PCP | | | MD | | | + +------+ + Reason for Visit + + + | Reason | Comments | + + + | Leg Swelling | | + + + Encounter Details +--------+ + + + + | Date | Type | Department | Care Team | Description | +--------+ + + + + | 11/12/ | Telephone | [facility] | Alanis, | Leg Swelling | | 2017 | | MEDICINE [address] [place] [address] | MD Petrona | | | | | [facility] | [address] [place] [address] | | | | | [place] [address] | [place] [address] | | | | | [phone] | [phone] | | | | | | | [...] | | [facility] [address] | | | | | | [address] [place] | | | | | | [place] [address] | | | | | | [phone] | | | | | | | | +--------+---------+ + + + | 12/20/ | Office | Otolaryngology | Ulysses Genao MD | | | 2019 | Visit | | [address] | | | | | | [address] [place], | | | | | | [place] [address] | | | | | | [phone] | | | | | | | | +--------+---------+ + + + | 02/15/ | Office | Internal Medicine | Alanis, | | | 2019 | Visit | | MD Petrona | | | | | | [address] | | | | | | [place] [address] | | | | | | [phone] | | | | | | | | +--------+---------+ + + + documented as of this encounter Visit Diagnoses Not on filedocumented in this encounter"
--- OUTSIDE RECORDS SUMMARY | ~2019-11-17 | XMS | Encounter Summary ---
Demographics + + + | Address | [address] | | | [place] [address] | + + + | Home Phone [...] Team Providers + +------+ + | Care Domestic Violence Advocate Name | Role | Phone | + [...] as of this encounter Progress Notes Interface, Service And Repair Supervisor In - 11/05/2005 2:06 AM PDT [id number] GEOVANNI [place] [id number] Clinic Date: 10/20/2005 Clinic: Bariatric Surgery Clinic Subjective: Ms. Meehan returns today for continued evaluation of her abdominal pain. She has had a gastric bypass followed by a panniculectomy approximately 1 year ago. She has had diffuse sharp and crampy abdominal pain which lasts up to 45 minutes. She says "it takes her breath away." She went to the emergency room at [place] last night and got some IV pain [...] . Wali Valentine M.D. CONNOR / SHARIF [id number] / [id number] / [id number] / [id number] Electronically signed by Luther Valentine 11-04-2005 11:36:40 AM documented i n this encounter Plan of Treatment Not on filedocumented as of this encounter Visit Diagnoses Not on filedocumented in this encounter
--- OUTSIDE RECORDS SUMMARY | ~2019-11-17 | XMS | Encounter Summary ---
Demographics + + + | Address | [address] | | | [place] [address] | + + + | Home Phone [...] Team Providers + +------+ + | Care Global Security Architect Name | Role | Phone | [...] + + | 01/04/ | Telephone | [facility] | Ulysses Genao MD | Other | | 2018 | | OTOLARYNGOLOGY [address] | [address] [facility] | | | | | [address] [facility] [address] | [address] [place], | | | | | [place], [place] | [place] [address] | | | | | [address] | [phone] | | | | | [phone] | | | +--------+ + + + [...] | | 2019 | Visit | | [facility] [address] | | | | | | [address] [place] | | | | | | [place] [address] | | | | | | [phone] | | | | | | | | +--------+---------+ + + + | 12/20/ | Office | Otolaryngology | Ulysses Genao MD | | | 2019 | Visit | | [address] | | | | | | [address] [place], | | | | | | [place] [address] | | | | | | [phone] | | | | | | | | +--------+---------+ + + + | 02/15/ | Office | Internal Medicine | Alanis, | | | 2019 | Visit | | MD Petrona | | | | | | [address] | | | | | | [place] [address] | | | | | | [phone] | | | | | | | | +--------+---------+ + + + documented as of this encounter Visit Diagnoses Not on filedocumented in this encounter"
--- OUTSIDE RECORDS SUMMARY | ~2019-11-17 | XMS | Encounter Summary ---
Demographics + + + | Address | [address] | | | [place] [address] | + + + | Home Phone [...] Providers + +------+ + | Care Accounts Payable Technician Name | Role | Phone | [...] | Pain | Diagnoses | Miracle, | Ness, | | | | Management | LBP (low | NIHARIKA Jean | Lukasz Rhodes, PhD | | | | | back pain) | [address] | [address] | | | | | DJD | [address] | Ave | | | | | (degenerativ | [place], [place] | [place] | | | | | e joint | [address] | [address] | | | | | disease) of | | Phone: | | | | | knee Knee | | [phone] | | | | | pain Major | | Fax: | | | | | depressive | | [phone] | | | | | disorder, | [...] 11/23/ | Office | [facility] | Lukasz Charles, | Major Depressive | | 2007 | Visit | [address] | PhD [address] | Disorder, Recurrent | | | | Mailcode: 15P | [place], [place] | Episode, Moderate | | | | [place] [facility] | [address] | [facility]); LBP (Low Back | | | | and Healing, | [phone] | Pain); Bilateral | | | | | | Knee Pain; | | | | Floor [place], [place] | | Adjustment Disorder | | | | [address] | | with Anxiety | | | | [phone] | | | +--------+---------+ + + + [...] frustra tion by being less active. Diagnosis: Derby I: 1. (296.32) Major depressive disorder, recurrent, moderate. 2. (309.24) Adjustment disorder with anxiety. 3. 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 Derby II: Deferred Derby III: abdominal pain, migraine headache, low back pain. Derby IV: low finances Derby V: GAF 55-60 Plan: return with next medical follow-up appointment. Check mood, abdominal pain, relaxat ion, activity, distraction. Continue cognitive/behavioral therapy. Total time spent with patient was approximately 45 minutes. LUKASZ [facility]LES [facility] [address] [facility], [address] [place] [address] documented in this encount er Plan of Treatment + + +--------+ + + | Name | Type | Priori | Associated Diagnoses | Order Schedule | | | | ty | | | + + +--------+ + + | [place] [facility]YCHOTHERPY, | Procedures | Routin | Major [...]
--- OUTSIDE RECORDS SUMMARY | ~2019-11-17 | XMS | Encounter Summary ---
Demographics + + + | Address | [address] | | | [place] [address] | + + + | Home Phone [...] Team Providers + +------+ + | Care Balancing Machine Set Up Worker Name | Role | Phone [...] Closed | | Gastroenterol | Diagnoses | Nuris Cardenas | Gas Endo | | | | ogy | Epigastric | T, ANP | [address] | | | | | pain Status | [place], [place] | [address] | | | | | post | [address] | [place] | | | | | bariatric | | [place], [address]th | | | | | surgery | | floor | | | | | Procedures | | [place], [place] | | | | | CONSULT TO | | [address] | | | | | GI PROCEDURE | | Phone: | | | | | UNIT: EGD | | [phone] | | | | | | | Fax: | | | | | | | [phone] | +--------+--------+ + + + + Reason for Visit Office Visit - [...] | | | | | | Rd [place], | | | | | | | [place] | | | | | | | [address] | | | | | | | Phone: | | | | | | | [phone] | | | | | | | Fax: | | | | | | | [phone] | +--------+--------+ + + + + Encounter Details +--------+---------+ + + + | Date | Type | Department | Care Team | Description | +--------+---------+ + + + | 08/28/ | Office | Digestive Health | Chris Padgett, | Epigastric Pain | | 2008 | Visit | Yoder [address] | [address] | (Primary Dx); Status | | | | Ave Mailcode: CH4S | [facility] [address] | Post Bariatric | | | | Center for [facility] | [place], [place] | Surgery | | | | and Healing, | [address] | | | | | | [phone] | | | | | [place], [place] | | | | | | [address] | | | | | | [phone] | | | +--------+---------+ + + + [...] + + + | Blood Pressure | 137/74 | 08/28/2008 2:10 PM | | | | | PDT | | + + + + + | Pulse | 84 | 08/28/2008 2:10 PM | | | | | PDT | | + + + + + | Temperature | 37.1 C (98.7 F) | 08/28/2008 2:10 PM | | | | | PDT | | + + + + + | Respiratory Rate | 16 | 08/28/2008 2:10 PM | | | | | PDT | | + + + + + | Oxygen Saturation | - | - | | + + + + + | Inhaled Oxygen | - | - | | | Concentration | | | | + + + + + | Weight | 88.4 kg (194 lb 14.4 | 08/28/2008 2:10 PM | | | | oz) | PDT | | + + + + + | Height | - | - | | + + + + + | Body Mass Index | 28.78 | 08/22/2008 9:28 AM | | | | | PDT | | + + + + + documented in this encounter Progress Notes Nuris Cardenas Rn - 09/01/2008 1:25 PM PDT Addended by: NURIS CARDENAS on: 09/01/2008 1:25:48 P M Modules accepted: Orders hris Padgett MD - 08/31/2008 8:37 AM PDTThe patient returns for follow up of a bariatric procedure performed years ago. She has done well except that she continues to have abdominal pain. This time the pain is epigastric and is somewhat relieved by meals. I will observe this pain for now since she has had it chronically. Exam: abd. Well healed scars, no masses, non tender to palp documented in this encounter Plan of Treatment + + +--------+ + + | Name | Type | Priori | Associated Diagnoses | Order Schedule | | | | ty | | | + + +--------+ + + | [place] UPPER GI | Procedures | Routin | Epigastric Pain | Ordered: 08/28/2008 | | ENDOSCOPY,BIOPSY | | e | | | + + +--------+ + + documented as of this encounter Results COMPLETE METABOLIC SET (NA,K,CL,CO2,BUN,CREAT,GLUC,CA,AST,ALT,BILI TOTAL,ALK PHOS,ALB,PROT TOTAL) (08/28/2008 3:31 PM PDT) + +---------+ + + + | Component | Value | Ref Range | Performed | Pathologist | | | | | At | Signature | + +---------+ + + + | GLUCOSE, | 98 | 60 - 99 mg/dL | [facility] [...] +---------+ + + + | CREATININE | 0.64 | 0.60 - 1.10 | [facility] | | | PLASMA | | mg/dL | DEPARTMENT | | | (LAB) | | | OF | | | | | | PATHOLOGY | | + +---------+ + + + | TOTAL | 6.7 | 6.1 - 7.9 g/dL | [facility] [...] +---------+ + + + | CALCIUM, | 9.7 | 8.6 - 10.2 | [facility] | [...] + + + | ALK PHOS | 109 (H) | 42 - 98 U/L | [facility] | | | | | | DEPARTMENT | | | | | | OF | | | | | | PATHOLOGY | | + +---------+ + + + | AST(SGOT) | 39 | 15 - 41 U/L | [facility] [...] +---------+ + + + | POTASSIUM, | 4.2 | 3.4 - 5.0 | [facility] | | | PLASMA | | mmol/L | DEPARTMENT | | | (LAB) | | | OF | | | | | | PATHOLOGY | | + +---------+ + + + | CHLORIDE, | 100 | 97 - 108 mmol/L | [facility] | | | PLASMA | | | DEPARTMENT | | | (LAB) | | | OF | | | | | | PATHOLOGY | | + +---------+ + + + | TOTAL CO2, | 31 | 23 - 31 mmol/L | [facility] | | | PLASMA | | | DEPARTMENT | | | (LAB) | | | OF | | | | | | PATHOLOGY | | + +---------+ + + + | ALT (SGPT) | 75 (H) | 13 - 48 U/L | [facility] | | | | | | DEPARTMENT | | | | | | OF | | | | | | PATHOLOGY | | + +---------+ + + + | AST CMNT | [facility] | | [facility] | | | | | | DEPARTMENT | | | | | | OF | | | | | | PATHOLOGY | | + +---------+ + + + | POTASSIUM | [facility] | | [facility] | | | CMNT | | | DEPARTMENT | | | | | | OF | | | | | | PATHOLOGY | | + +---------+ + + + | POTASSIUM | . | | [facility] | | | CMNT | | | DEPARTMENT | | | | | | OF | | | | | | PATHOLOGY | | + +---------+ + + + + + | Specimen | + + | Blood - Blood | + + + + + | Narrative | Performed At | + + + | [id number] Estimated GFR > 60 mL/min/1.73 sq m if non- | [facility] | | Jordanian [id number] Estimated GFR > 60 mL/min/1.73 sq m if | DEPARTMENT OF | | Jordanian GFR is estimated using the MDRD equation [...] | | - Rapidly changing kidney function Sample hemolyzed. Results for | | | K, Total Bili., Direct Bili., AST, LD, or HDL may be inaccurate. | | | Refer to comment under test result. * Corrected 08/29/08 08:40: K | | | COMMENT, prev report: [facility] | | + + + + + + + + | Performing | Address | City/State/Zipcode | Phone Number | | Organization | | | | + + + + + | [facility] | [address] | [place] [address] | | | PATHOLOGY | [address] | | | + + + + + | [facility] | [address] | [place] [address] | | | PATHOLOGY | [address] | | | + + + + + documented in this encounter Visit Diagnoses + + | Diagnosis | + + | Epigastric pain - Primary Abdominal pain, epigastric | + + | Status post bariatric surgery Bariatric surgery status | + + documented in this encounter"
--- OUTSIDE RECORDS SUMMARY | ~2019-11-17 | XMS | Encounter Summary ---
Demographics + + + | Address | [address] | | | [place] [address] | + + + | Home Phone [...] Team Providers + +------+ + | Care Vocational Rehabilitation Teacher Name | Role | Phone | [...] 2005 | Activity | TRACE Wilson MD [address] | | | | | Peterson Mailcode: RPB07 | [place], [place] | | | | | [place], [place] | [address] | | | | | [address] | [phone] | | | | | [phone] | | | +--------+ + + + [...] M.D./PathologistT:04/06/ | | | | | | 06:[facility] I have reviewed | | | | [...] | + + + + + | [facility] | [address] | [place] [address] | | | PATHOLOGY | [address] | | | + + + + + | [facility] DEPARTMENT OF | [facility] | [place] [address] | | | PATHOLOGY | [address] | | | + + + + + documented in this encounter Visit Diagnoses Not on filedocumented in this encounter"
--- OUTSIDE RECORDS SUMMARY | ~2019-11-17 | XMS | Encounter Summary ---
Demographics + + + | Address | [address] | | | [place] [address] | + + + | Home Phone [...] Providers + +------+ + | Care Refrigerator Assembler Name | Role | Phone | + +------+ + | Pedrito Gutierrez MD | PCP | | + +------+ + Reason for Visit + + + | Reason | Comments | + + + | Bone Density Scan | | + + + Consultation (Routine) +--------+--------+ + + + + | Status | Reason | Specialty | Diagnoses / | Referred By | Referred To | | | | | Procedures | Contact | Contact | +--------+--------+ + + + + | Closed | | Bone | Diagnoses | Anika Meeks Bone | | | | Densitometry | | MD eBto | Density [facility] | | | | | Osteoporosis | [address] | [address] | | | | | Procedures | Ave | Naeem Mcrae | | | | | CONSULT TO | [place], [place] | Rd Mailcode: | | | | | BONE | [address] | [address] | | | | | DENSITOMETRY | Phone: | Naeem De La Rosa | | | | | | [phone] | [place], [place] | | | | | | Fax: | [address] | | | | | | [phone] | Phone: | | | | | | | [phone] | | | | | | | Fax: | | | | | | | [phone] | +--------+--------+ + + + + Encounter Details +--------+---------+ + + + | Date | Type | Department | Care Team | Description | +--------+---------+ + + + | 08/23/ | Office | Endocrinology, | Sjh, Bmd Dexa | Other Osteoporosis | | 2007 | Visit | Diabetes and | [address] | (Primary Dx); | | | | Clinical Nutrition | [facility], | Symptomatic | | | | [address] | [place] [address] | Menopausal or Female | | | | [facility] Mailcode: | | Climacteric States; | | | | [address] | | Disorder of Bone | | | | [facility], [place] | | and Cartilage, | | | | [address] | | Unspecified | | | | [phone] | | | +--------+---------+ + + + [...] + documented as of this encounter Progress Angelica Hernandez - 08/26/2007 9:33 AM PDTBone density scans performed. Please see the Interpretation Report, located in chart Review, under the Media tab. documented in th is encounter Plan of Treatment + +---------+--------+ + + | Name | Type | Priori | Associated Diagnoses | Order Schedule | | | | ty | | | + +---------+--------+ + + | [facility] DXA BONE | Imaging | Routin | Other Osteoporosis | Ordered: 08/26/2007 | | DENSITY,AXIAL 2-3 | | e | Symptomatic | | | SCANS,TECH | | | Menopausal or Female | | | | | | Climacteric States | | | | | | Disorder of Bone | | | | | | and Cartilage, | | | | | | Unspecified | | + +---------+--------+ + + documented as of this encounter Visit Diagnoses + + | Diagnosis | + + | Other osteoporosis - Primary | + + | Symptomatic menopausal or female climacteric states | + + | Disorder of bone and cartilage, unspecified | + + documented in this encounter"
--- OUTSIDE RECORDS SUMMARY | ~2019-11-17 | XMS | Encounter Summary ---
Demographics + + + | Address | [address] | | | [place] [address] | + + + | Home Phone [...] Team Providers + +------+ + | Care Barn Boss Name | Role | Phone | + [...] | | | | [address] | [address] | | | | | | [place], | Phone: | | | | | | [place] | [phone] | | | | | | [address] | | | | | | | Phone: | | | | | | | [phone] | | | | | | | Fax: | | | | | | | [phone] | | +--------+ + + + + [...] [place] | Dx) | | | | [place] [address] | [place] [address] | | | | | [phone] | [phone] | | | | | | | [...] | | | | | [place] [address] | | | | | | [phone] | | | | | | | | +--------+---------+ + + + | 12/20/ | Office | Otolaryngology | Ulysses Genao MD | | | 2019 | Visit | | [address] | | | | | | [address] [place], | | | | | | [place] [address] | | | | | | [phone] | | | | | | | | +--------+---------+ + + + | 02/15/ | Office | Internal Medicine | Alanis, | | | 2019 | Visit | | MD Petrona | | | | | | [address] [place] | | | | | | [place] [address] | | | | | | [phone] | | | | | | | [...]
--- OUTSIDE RECORDS SUMMARY | ~2019-11-17 | XMS | Encounter Summary ---
Demographics + + + | Address | [address] | | | [place] [address] | + + + | Home Phone [...] Providers + +------+ + | Care Fire And Explosion Investigator Name | Role | Phone | + [...] + + | 07/28/ | Telephone | [facility] | Alanis, | Appointment | | 2018 | | MEDICINE [address] [place] [address] | MD Petrona | | | | | [facility] | [address] [place] [address] | | | | | [place] [address] | [place] [address] | | | | | [phone] | [phone] | | | | | | | [...] | | [facility] [address] | | | | | [address] [place] | | | | | | [place] [address] | | | | | | [phone] | | | | | | | | +--------+---------+ + + + | 12/20/ | Office | Otolaryngology | Ulysses Genao MD | | | 2020 | Visit | | [address] | | | | | | [address] [place], | | | | | | [place] [address] | | | | | | [phone] | | | | | | | | +--------+---------+ + + + | 02/15/ | Office | Internal Medicine | Alanis, | | | 2019 | Visit | | MD Petrona | | | | | | [address] | | | | | | [place] [address] | | | | | | [phone] | | | | | | | | +--------+---------+ + + + documented as of this encounter Visit Diagnoses Not on filedocumented in this encounter"
--- OUTSIDE RECORDS SUMMARY | ~2019-11-17 | XMS | Encounter Summary ---
Demographics + + + | Address | [address] | | | [place] [address] | + + + | Home Phone [...] Team Providers + +------+ + | Care Lime Burner Name | Role | Phone | + +------+ + | Petrona Thapa | PCP | | | MD | | | + +------+ + Reason for Visit + + + | Reason | Comments | + + + | Referral | | + + + | Medication Refill | | + + + Encounter Details +--------+ + + + + | Date | Type | Department | Care Team | Description | +--------+ + + + + | 03/04/ | Telephone | [facility] | Alanis, | Referral; Medication | | 2016 | | [address] | MD Petrona | Refill | | | | [facility] | [address] [place] [address] | | | | | [place] [address] | [place] [address] | | | | | [phone] | [phone] | | | | | | | [...] Visit | | [facility] [address] | | | | | [address] [place] | | | | | | [place] [address] | | | | | | [phone] | | | | | | | | +--------+---------+ + + + | 12/20/ | Office | Otolaryngology | Ulysses Genao MD | | | 2019 | Visit | | [address] [place] | | | | | | [address] [place] | | | | | | [place] [address] | | | | | | [phone] | | | | | | | | +--------+---------+ + + + | 02/15/ | Office | Internal Medicine | Alanis, | | | 2019 | Visit | | MD Petrona | | | | | | [address] [place] | | | | | | [place] [address] | | | | | | [phone] | | | | | | | | +--------+---------+ + + + documented as of this encounter Visit Diagnoses Not on filedocumented in this encounter"
--- OUTSIDE RECORDS SUMMARY | ~2019-11-17 | XMS | Encounter Summary ---
Demographics + + + | Address | [address] | | | [place] [address] | + + + | Home Phone [...] Team Providers + +------+ + | Care Quill Buncher And Sorter Name | Role | Phone | [...] Lab findings, | | 2006 | | [place] [address] | [address] | teaching, guidance, | | | | Ave Mailcode: CH4S | [address] | and counseling | | | | [facility] | [place], [place] | | | | | and Healing, | [address] | | | | | [facility] | [phone] | | | | | [place], [place] | | | | | | [address] | | | | | | [phone] | | | +--------+ + + + [...]
--- OUTSIDE RECORDS SUMMARY | ~2019-11-17 | XMS | Encounter Summary ---
Demographics + + + | Address | [address] | | | [place] [address] | + + + | Home Phone [...] Providers + +------+ + | Care Rn Medical Inpatient Services Name | Role | Phone | + +------+ + | Petrona Thapa | PCP | | | MD | | | + +------+ + Reason for Visit + + + | Reason | Comments | + + + | Appointment | MRI | + + + Encounter Details +--------+ + + + + | Date | Type | Department | Care Team | Description | +--------+ + + + + | 10/18/ | Telephone | [facility] | Ulysses Genao MD | Appointment (MRI) | | 2014 | | OTOLARYNGOLOGY [address] | [address] [facility] | | | | | [address] [facility] [address] | [address] [place], | | | | | [place] | [place] [address] | | | | | [address] | [phone] | | | | | [phone] | | | +--------+ + + + [...] | Visit | | [facility] [address] | | | | | [address] [place] | | | | | | [place] [address] | | | | | | [phone] | | | | | | | | +--------+---------+ + + + | 12/20/ | Office | Otolaryngology | Ulysses Genao MD | | | 2019 | Visit | | [address] [place] | | | | | | [address] [place], | | | | | | [place] [address] | | | | | | [phone] | | | | | | | | +--------+---------+ + + + | 02/15/ | Office | Internal Medicine | Alanis, | | | 2019 | Visit | | MD Petrona | | | | | | [address] [place] | | | | | | [place] [address] | | | | | | [phone] | | | | | | | | +--------+---------+ + + + documented as of this encounter Visit Diagnoses Not on filedocumented in this encounter"
--- OUTSIDE RECORDS SUMMARY | ~2019-11-17 | XMS | Encounter Summary ---
Demographics + + + | Address | [address] | | | [place] [address] | + + + | Home Phone [...] Providers + +------+ + | Care Metal Roaster Name | Role | Phone | + +------+ + | Petrona Thapa | PCP | | | MD | | | + +------+ + Reason for Visit + + + | Reason | Comments | + + + | Injections | | + + + Encounter Details +--------+ + + + + | Date | Type | Department | Care Team | Description | +--------+ + + + + | 10/05/ | Telephone | [facility] | Alanis, | Injections | | 2019 | | MEDICINE [address] [place] [address] | MD Petrona | | | | | [facility] | [address] [place] [address] | | | | | [place] [address] | [place] [address] | | | | | [phone] | [phone] | | | | | | | [...] | Visit | | [facility] [address] | | | | | [address] [place] | | | | | | [place] [address] | | | | | | [phone] | | | | | | | | +--------+---------+ + + + | 12/20/ | Office | Otolaryngology | Ulysses Genao MD | | | 2020 | Visit | | [address] [place] | | | | | | [address] [place], | | | | | | [place] [address] | | | | | | [phone] | | | | | | | | +--------+---------+ + + + | 02/15/ | Office | Internal Medicine | Alanis, | | | 2019 | Visit | | MD Petrona | | | | | | [address] | | | | | | [place] [address] | | | | | | [phone] | | | | | | | | +--------+---------+ + + + documented as of this encounter Visit Diagnoses Not on filedocumented in this encounter"
--- OUTSIDE RECORDS SUMMARY | ~2019-11-17 | XMS | Encounter Summary ---
Demographics + + + | Address | [address] | | | [place] [address] | + + + | Home Phone [...] | ECON | Unknown | | | Ruyd | | | | + + +---------+ + | Sree Wells | ECON | Unknown | | + + +---------+ + | Marco Antonio Wells | ECON | Unknown | | + + +---------+ + Care Team Providers + +------+ + | Care Account Executive Agribusiness Name | Role | Phone | + +------+ + | Petrona Thapa | PCP | | | MD | | | + +------+ + Reason for Visit +--------+ + | Reason | Comments | +--------+ + | Other | Vertigo, hearing issue | +--------+ + Encounter Details +--------+---------+ + + + | Date | Type | Department | Care Team | Description | +--------+---------+ + + + | 12/20/ | Office | [facility] | Ulysses Genao MD | Meniere's disease of | | 2019 | Visit | OTOLARYNGOLOGY [address] | [address] [place] | right ear (Primary | | | | [address] | [address] [place], | Dx); Benign | | | | [place] | [place] [address] | paroxysmal | | | | [address] | [phone] | positional vertigo, | | | | [phone] | | unspecified | | | | | | laterality | +--------+---------+ + + + Social History [...] + + | Pulse | 59 | 12/20/2018 10:09 AM | | | | | PDT | | + + + + + | Temperature | - | - | | + + + + + | Respiratory Rate | - | - | | + + + + + | Oxygen Saturation | 97% | 12/20/2018 10:09 AM | | | | | PDT | | + + + + + | Inhaled Oxygen | - | - | | | Concentration | | | | + + + + + | Weight | 90.9 kg (200 lb 6.4 | 12/20/2018 10:09 AM | | | | oz) | PDT | | + + + + + | Height | 172.7 cm (5' 8") | 12/20/2018 10:09 AM | | | | | PDT | | + + + + + | Body Mass Index | 30.47 | 12/20/2018 10:09 AM | | | | | PDT | | + + + + + documented in this encounter Progress Notes Ulysses Genao MD - 12/20/2018 10:15 AM PDTPatient comes in because she continues to have t he plugged up feeling in her right ear. She feels that it's constantly plugged 10 she has c ontinued problems with her balance. The hearing has further declined in the right ear over the last year as far as the patient can tell. She stays away from caffeine and does not use regular salt . She fell down recently but did not have any injury. She gets a lot of shor t spells of spinning sensation and previously has the evidence of benign positional vertigo and the Tayler maneuvers help significantly. No difficulty with swallowing and no change in her vocal function. No other ENT complaints. Examination: Patient is an alert 58-year-old patient who is accompanied by a care provider. Skin of the face nose and ears all appeared to be smooth and healthy. Ear canals are open and clean and drums are clear. There is no middle ear fluid or disease noted. In the oral cavity no mass or lesions are noted. No mass seen in the oropharynx and posterior pharynge al wall is smooth. Tongue and soft palate are smooth the moves symmetrically. Her neck was smooth without any mass or lymphadenopathy noted. Thyroid area was smooth and trachea was midline. Parotid submandibular and thyroid glands were smooth. She moves her neck well wit hout any pain or discomfort noted. No nystagmus of the eyes were noted. Patient's tympanog ainsley were A tympanograms. Her speech salon receptionist threshold is 30 dB in the right ear and 20 d B in the left ear. Her speech discrimination scores were 100% bilaterally. The patient has dropped 10 dB in the right ear but improved 5 dB in the left ear. Impression: Benign paroxysmal positional vertigo. #2 right ear Mnire's disease. Plan: Patient should have a repeat audiogram again in 1 year's time. Her medicines were re viewed and she is on a fairly high dose of Lasix so we'll not had Dyazide. She will stay aw ay from salt and caffeine. She's given a booklet on Mnire's disease. She will be sched uled for a Tayler maneuver in [place]. Extended time was spent with the patient.Electronic ally signed by Ulysses Genao MD at 12/20/2018 10:37 AM PDTdocumented in this encounter Plan of Treatment +--------+---------+ + + + | Date | Type | Specialty | Care Team | Description | +--------+---------+ + + + | 12/20/ | Office | Audiology | Elisabet Munson, | | | 2019 | Visit | | [facility] [address] | | | | | | [facility] | | | | | | [place] [address] | | | | | | [phone] | | | | | | | | +--------+---------+ + + + | 12/20/ | Office | Otolaryngology | Ulysses Genao MD | | | 2019 | Visit | | [address] [place] | | | | | | [address] [place], | | | | | | [place] [address] | | | | | | [phone] | | | | | | | | +--------+---------+ + + + | 02/15/ | Office | Internal Medicine | Alanis, | | | 2019 | Visit | | MD Petrona | | | | | | [address] [place] | | | | | | [place] [address] | | | | | | [phone] | | | | | | | | +--------+---------+ + + + documented as of this encounter Visit Diagnoses + + | Diagnosis | + + | Meniere's disease of right ear - Primary Meniere's disease, unspecified | + + | Benign paroxysmal positional vertigo, unspecified laterality | + + documented in this encounter
--- OUTSIDE RECORDS SUMMARY | ~2019-11-17 | XMS | Encounter Summary ---
Demographics + + + | Address | [address] | | | [place] [address] | + + + | Home Phone | | + + + | Preferred Language | Unknown | + + + | Marital Status | | + + + | Jehovah'S Witness Affiliation | 1001 | + + + | Race | Unknown | + + + | Ethnic Group | Unknown | + + + Author + + + | Author | [facility] | | | and [place] | + + + | Organization | [facility] | | [...] Team Providers + +------+ + | Care Transfer And Pumphouse Operator Name | Role | Phone | [...] + + | 03/03/ | Telephone | [facility] | Alanis, | Medication Question | | 2017 | | MEDICINE [address] [place] [address] | MD Petrona | | | | | [facility] | [address] [place] [address] | | | | | [place] [address] | [place] [address] | | | | | [phone] | [phone] | | | | | | | [...] | | 2019 | Visit | | [facility] [address] | | | | | | [address] | | | | | | [place] [address] | | | | | | [phone] | | | | | | | | +--------+---------+ + + + | 12/20/ | Office | Otolaryngology | Ulysses Genao MD | | | 2019 | Visit | | [address] | | | | | | [address] [place] | | | | | | [place] [address] | | | | | | [phone] | | | | | | | | +--------+---------+ + + + | 02/15/ | Office | Internal Medicine | Alanis, | | | 2019 | Visit | | MD Petrona | | | | | | [address] | | | | | | [place] [address] | | | | | | [phone] | | | | | | | | +--------+---------+ + + + documented as of this encounter Visit Diagnoses Not on filedocumented in this encounter"
--- OUTSIDE RECORDS SUMMARY | ~2019-11-17 | XMS | Encounter Summary ---
Demographics + + + | Address | [address] | | | [place] [address] | + + + | Home Phone | | + + + | Preferred Language | Unknown | + + + | Marital Status | | + + + | Moravian Affiliation | 1001 | + + + [...] Team Providers + +------+ + | Care Cheese Tester Name | Role | Phone | [...] + + | 01/20/ | Refill | [facility] | Alanis, | Medication Refill | | 2017 | | MEDICINE [address] [place] [address] | MD Petrona | | | | | [facility] | [address] [place] [address] | | | | | [place] [address] | [place] [address] | | | | | [phone] | [phone] | | | | | | | [...] | | | | | [place] [address] | | | | | | [phone] | | | | | | | | +--------+---------+ + + + | 12/20/ | Office | Otolaryngology | Ulysses Genao MD | | | 2019 | Visit | | [address] | | | | | | [address] [place], | | | | | | [place] [address] | | | | | | [phone] | | | | | | | | +--------+---------+ + + + | 02/15/ | Office | Internal Medicine | Alanis, | | | 2019 | Visit | | MD Petrona | | | | | | [address] [place] [address] [place] | | | | | | [place] [address] | | | | | | [phone] | | | | | | | | +--------+---------+ + + + documented as of this encounter Visit Diagnoses Not on filedocumented in this encounter"
--- OUTSIDE RECORDS SUMMARY | ~2019-11-17 | XMS | Encounter Summary ---
Demographics + + + | Address | [address] | | | [place] [address] | + + + | Home Phone [...] Providers + +------+ + | Care Marketing Program Coordinator Name | Role | Phone | [...] | | | | | | | [address] | | | | | | | [address] | | | | | | | [facility] | | | | | | | [place], [place] | | | | | | | [address] | | | | | | | Phone: | | | | | | | [phone] | | | | | | | Fax: | | | | | | | [phone] | +--------+--------+ + + + + Encounter Details +--------+ + + + + | Date | Type | Department | Care Team | Description | +--------+ + + + + | 02/22/ | Hospital | [facility] [address] | Hai Hoyos, | | | 2008 | Encounter | [address] | | | | | | [address] | | | | | | [place], | | | | | | [place] [address] | | | | | | [phone] | | | +--------+ + + + [...] Brief Hospital Course: Patient was admitted to [facility] short stay surgery. Patient was taken to [...] business hours at or page the orthopedist office professionals after regular business hours at [phone]. If you have any of the following: [...] at . Follow Up Tests: (Tests at [facility] must be entered into [employer]urchase) none Condition On Discharge: stable Vital Signs [...] Brief Hospital Course: Patient was admitted to [facility] short stay surgery. Patient was taken to [...] business hours at or page the orthopedist office professionals after regular business hours at [phone]. If you have any of the following: [...] at . Follow Up Tests: (Tests at [facility] must be entered into Epic) none Condition [...] Mode of Transportation: Car Accompanied by: Family/Responsible Green Party Discharge Nurse: LONI KOWALSKI RN Date: 02/22/2009 [...] | [facility] | [address] | [place] [address] | | | PATHOLOGY | [address] [...] COUNSELING CENTER | [address] | [place] [address] | | | PATHOLOGY | [address] [...] | | | | | performed at [facility] | | | | | | [facility] [...] COUNSELING CENTER | [address] | [place] [address] | | | PATHOLOGY | [address] [...] COUNSELING CENTER | [address] | [place] [address] | | | PATHOLOGY | [address] [...] | | | | | performed at [facility] | | | | | | [place] [...] | [facility] | [address] | [place] [address] | | | PATHOLOGY | [address] [...] COUNSELING CENTER | [address] | [place] [address] | | | PATHOLOGY | [address] [...] Lab) | | | | | | [facility] | | | | | | [address] [place] | | | | [address] | | | | | | [place] [address] | | | | + + + + + + + + | Specimen | + + | | + + + + + + + | Performing | Address | City/State/Zipcode | Phone Number | | Organization | | | | + + + + + | [facility] | [address] | [place] [address] | | | PATHOLOGY | [address] [...] Performed At | + + + | [id number] | | | [id number] | | | [place] [address] | | | Date: 02/22/2009 Attending Surgeon: | | | Hai Hoyos MD Molding Room Supervisor(s): | | | Shantel Whipple Preoperative | | | Diagnosis(es): Left symptomatic scapula lesion. Postoperative | | | Diagnosis(es): Left symptomatic scapula lesion. Procedures | | | Performed: 1. Curettage and bone grafting of the left scapular | | | lesion. 2. Open biopsy, left scapular lesion. | | | Donna Clancy served as my executive assistant because no other qualified | | [...] | aforementioned. MD ARTIS Wei / SHARIF [id number] / | | | [id number] / [id number] / | | + + + + + | Procedure Note | + + | Hai Hoyos MD - 02/22/2009 12:00 AM PDT [id number] | | [id number] [place] | | [id number] Date: 02/22/2009 Attending Surgeon: Hai | | MD Romain Molding Room Supervisor(s): Raj Whipple. Preoperative | | Diagnosis(es):Left symptomatic scapula lesion. Postoperative Diagnosis(es):Left | | symptomatic scapula lesion. Procedures Performed:1. Curettage and bone grafting of | | the left scapular lesion.2. Open biopsy, left scapular lesion. Donna Clancy | | served as my executive assistant because no other qualified help wasavailable. [...] plan is as aforementioned. CHARU Wei / [id number] / [id number] / [id number] /D: | | 02/22/2009T: 02/22/2009 | | [...] |Hai Hoyos MD | |ZA / | |[id number] / [id number] / [id number] / | | | | | | [...] | + + + + + | [facility] DEPARTMENT OF | [address] | [place] [address] | | | PATHOLOGY | [address] | | | + + + + + | [facility] DEPARTMENT OF | [facility] | [place] [address] | | | PATHOLOGY | [address] [...]
--- OUTSIDE RECORDS SUMMARY | ~2019-11-17 | XMS | Encounter Summary ---
Demographics + + + | Address | [address] | | | [place] [address] | + + + | Home Phone | | + + + | Preferred Language | Unknown | + + + | Marital Status | | + + + | Presybeterian Affiliation | 1001 | + + + | Race | Unknown | + + + | Ethnic Group | Unknown | + + + Author + + + | Author | [facility] | | | and [place] | + + + | Organization | [facility] | | [...] Providers + +------+ + | Care Utility Service Worker Name | Role | Phone | + +------+ + | Petrona Thapa | PCP | | | MD | | | + +------+ + Encounter Details +--------+---------+ + + + | Date | Type | Department | Care Team | Description | +--------+---------+ + + + | 12/18/ | Surgery | [facility] | Luther Brito MD | EGD | | 2018 | | MED CTR [facility] INTRA OP | [address] | | | | | [address] | [place], [place] | | | | | [place], [place] | [address] | | | | | [address] | [phone] | | | | | [phone] | | | +--------+---------+ + + + [...] You can't be awakened Date Last Reviewed: 04/01/201619998836-7184 [employer] [address] [place] [address]. All righ ts reserved. This information is [...] | | 2019 | Visit | | [facility] [address] | | | | | | [address] | | | | | | [place] [address] | | | | | | [phone] | | | | | | | | +--------+---------+ + + + | 12/20/ | Office | Otolaryngology | Ulysses Genao MD | | | 2019 | Visit | | [address] | | | | | | [address] [place], | | | | | | [place] [address] | | | | | | [phone] | | | | | | | | +--------+---------+ + + + | 02/15/ | Office | Internal Medicine | Alanis, | | | 2019 | Visit | | MD Petrona | | | | | | [address] [place] | | | | | | [place] [address] | | | | | | [phone] | | | | | | | [...] | [facility] | | GastroenterologyPatient Name: Belinda BrittonsProcedure Date: 12/18/2017 | PROVATION | | 10:49 AMMRN: [id number] #: [id number] of : | | | 1960dmit Type: AmbulatoryAge: 57Room: [facility] 01Gender: FemaleNote | | | Status: FinalizedAttending MD: Luther Brito , MDProcedure: | | | Upper GI endoscopyIndications: Generalized [...] the anesthesiologist and the | | | care technician in the pre-procedure area in the [...] | appearing mucosa. This was traversed. The ehxyf-yd-ouwfgxh limb | | | was characterized by healthy appearing mucosa. The | | | jejunojejunal anastomosis was characterized by healthy | | | appearing mucosa. The pouxhpxq-dc-slqewqe limb was not examined | | | [...] AMScope Out: | | | 11:08:34 AM , [address] | | | [place] [address] | | | - Return to GI [...] |Scope Out: 11:08:34 AM | | | , [address] [place], [place] | | | [address] | | + + -+ + +---------+ [...] | [facility] | | GastroenterologyPatient Name: Belinda BrittonsProcedure Date: 12/18/2017 | PROVATION | | 10:43 AMMRN: [id number] #: [id number] of : | | | 9Admit Type: AmbulatoryAge: 57Room: [facility] 01Gender: FemaleNote | | | Status: FinalizedAttending MD: Luther Brito , MDProcedure: | | | ColonoscopyIndications: Generalized abdominal [...] the anesthesiologist and the | | | care technician in the pre-procedure area in the [...] Scope In: 11:12:28 AMScope Out: 11:56:57 AM [place] | | | [facility], [address] [place] [address] | | | [phone] | | | - Await pathology results. [...] |Scope Out: 11:56:57 AM | | | , [address] [place] [address], [place], [place] | | | [address] | | + + -+ + +---------+ [...] for specific diagnostic abnormality. | | | VR:[facility]:C2NR GROSS DESCRIPTION: Received in five [...] Submitted all in | | | (E1). ka:CLR:glc PERFORMING LABORATORY: Tissue processing and | | | slide preparation were performed by [employer], [facility] | | | [address], [place] [address] (Meat And Seafood Clerk: Stephen Jacobson | | | Joanna CLIA#: [id number]). Professional interpretation was performed | | | by [employer], [facility], [facility] | | | [place] [address] (Meat And Seafood Clerk: Stephen | | | Joanna Jacobson; CLIA#: [id number]). Diagnostician: Stephen Khan | | | Kavon [...] Shortness of Breath, Starting | | | Thu12/18/17 at 1223, For 1 dose, | | [...] | | | | | CONTINUOUS, Starting 12/18/17 | | AM PDT | | | [...]
--- OUTSIDE RECORDS SUMMARY | ~2019-11-17 | XMS | Encounter Summary ---
Demographics + + + | Address | [address] | | | [place] [address] | + + + | Home Phone [...] Team Providers + +------+ + | Care Migratory Game Bird Biologist Name | Role | Phone | + [...] as of this encounter Progress Notes Interface, Advisory Services Associate In - 02/17/2006 3:04 AM [facility] [place] [address] [place], [place] [address] or October 02, 2001 Pedrito Gutierrez M.D. [facility] [address] [place] [address] RE: BELINDA GALARZA MR #: [id number] Dear Dr. 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 Sincerely, Issac Meeks M.D. tabular typist, Division of Endocrinology, Diabetes, and Clinical Bowling Ball Patcher, [facility] Ph#: [phone] [facility] / [id number] / [id number] / [id number] / C: 10/13/2001 praful [id number] signed by Interface, Advisory Services Associate In at 02/17/2006 3:04 AM [facility] umented in this encounter Plan of Treatment Not on filedocumented as of this encounter Visit Diagnoses Not on filedocumented in this encounter"
--- OUTSIDE RECORDS SUMMARY | ~2019-11-17 | XMS | Encounter Summary ---
Demographics + + + | Address | [address] | | | [place] [address] | + + + | Home Phone [...] Providers + +------+ + | Care Home Builder Name | Role | Phone | [...] [facility] | | | | | | [place], | [address] | | | | | Sacroiliitis | Carlos Armijo MD | [place], | | | | | , not | [address] | [place] | | | | | elsewhere | [facility] | [address] | | | | | classified | [place] | Phone: | | | | | ([facility]) | [address] | [phone] | | | | | Procedures | Phone: | Fax: | | | | | DE INJECT SI | [phone] | [phone] | | | | | JOINT | Fax: | | | | | | ARTHRGRPHY&/ | [phone] | | | | | | ANES/STEROID | | | | | | | W/IMAGE DE | | | | | | | | | | | | | | TRIAMCINOLON | | | | | | | E ACET INJ | | | | | | | NOS, 10 MG | | | | | | | Bilat SI | | | | | | | Joint -appt | | | | | | | 9/15 | | | +--------+--------+ + + + + Encounter Details +--------+ + + + + | Date | Type | Department | Care Team | Description | +--------+ + + + + | 02/27/ | Hospital | [facility] | Joe, | Bilateral | | 2015 | Encounter | MED CTR XRAY [address] | MARY Montero [address] | sacroiliitis (HCC) | | | | [place] | [facility] [address] | (Primary Dx); | | | | [place] [address] | [place] [address] | Chronic low back | | | | [phone] | [phone] | pain; SCOLIOSIS , | | | | | | IDIOPATHIC; S/P | | | | | Velvet Cutter, [facility]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; | | | | | [place] | Fibromyalgia | +--------+ + + + + Social [...] +---------+ + + | Blood Pressure | 125/72 | 02/27/2015 2:21 PM | | | | | PDT | | + +---------+ + + | Pulse | 60 | 02/27/2015 2:21 PM | | | | | PDT [...] | 0 | 02/29/20 | | | (ROBAXIN) 750 mg | [...] | | | | | [place] [address] | | | | | | [phone] | | | | | | | | +--------+---------+ + + + | 12/20/ | Office | Otolaryngology | Ulysses Genao MD | | | 2019 | Visit | | [address] [place] | | | | | | [address] [place] | | | | | | [place] [address] | | | | | | [phone] | | | | | | | | +--------+---------+ + + + | 02/15/ | Office | Internal Medicine | Alanis, | | | 2019 | Visit | | MD [place] | | | | | | [address] | | | | | | [place] [address] | | | | | | [phone] | | | | | | | | +--------+---------+ + + + documented as of this encounter Procedures + +--------+ + + + | Procedure Name | Priori | Date/Time | Associated Diagnosis | Comments | | | ty | | | | + +--------+ + + + | FL SACROILIAC | Routin | 02/27/2015 | Chronic low back | Results for this | | INJECTION RIGHT | e | 2:12 PM | pain SCOLIOSIS , | procedure are in the | | | | PDT | IDIOPATHIC S/P | results section. | | | |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 | | | | | | Fibromyalgia | | + +--------+ + + + | FL SACROILIAC | Routin | 02/27/2015 | Chronic low back | Results for this | | INJECTION LEFT | e | 2:12 PM | pain SCOLIOSIS , | procedure are in the | | | | PDT | IDIOPATHIC S/P | results section. | | | |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 | | | | | | Fibromyalgia | | + +--------+ + + + documented in this encounter Results FL Sacroiliac Injection Right (02/27/2015 2:12 PM PDT) + + | Specimen | + + | | + + + + + | Narrative | Performed At | + + + | 02/27/2015 Bilateral Sacroiliac Joint Injection Clinical History: | [facility] | | Sacroiliitis ICD-9 720.0 Belinda Meehan presents to the | [facility] | | fluoroscopy suite for fluoroscopically guided bilateral sacroiliac [facility] | | joint steroid injections as [...] + | [address] | [address] | [place] | [phone] | | [facility] | | [address] | | | - IMAGING | | [...] 720.0 Belinda Meehan presents to the | [facility] | | fluoroscopy suite for fluoroscopically guided bilateral sacroiliac [facility] | | joint steroid injections as [...] | + + + + + | [address] | [address] | [place] | [phone] | | [facility] | | [address] | | | - IMAGING | | | | + + + + + documented in this encounter Visit Diagnoses + + | Diagnosis | + + | Bilateral sacroiliitis (HCC) - Primary | + + | Chronic low back pain Lumbago | + + | SCOLIOSIS , IDIOPATHIC Scoliosis (and kyphoscoliosis), idiopathic | + + | S/P lumbar fusion Arthrodesis status | + + | Fibromyalgia Mylagia and myositis, unspecified | + + documented in this encounter Administered Medications + +--------+ +-------+------+------+ | Medication Order | MAR | Action | Dose | Rate | Site | | | Action | Date | | | | + +--------+ +-------+------+------+ | iohexol (OMNIPAQUE 300) 300 | Given | 02/28/20 | 2 mLs | | | | mg/mL injection 2 mL 2 mL, | | 15 2:19 | | | | | Other, ONCE PRN, Other, Starting | | PM PDT | | | | | 02/27/15 at 1356, For 1 dose, | | | | | | | Radiology | | | | | | + +--------+ +-------+------+------+ +---+---+ | | | +---+---+ + +-------+ +-------+---+ + | lidocaine 1% injection 5 mL 5 | Given | 02/28/20 | 5 mLs | | Other | | mL, Intradermal, ONCE, Tue | | 15 2:15 | | | (Comment | | 02/27/15 at 1430, For 1 dose | | PM PDT | | | ) | + +-------+ +-------+---+ + +---+---+ | | | +---+---+ + +-------+ +-------+---+---+ | sodium bicarbonate (NEUT) 4% | Given | 02/28/20 | 4 mLs | | | | injection 4 mL 4 mL, | | 15 2:15 | | | | | Infiltration, ONCE, 02/27/15 | | PM PDT | | | | | at 1430, For 1 dose, Use for | | | | | | | addition to other parenteral | | | | | | | solutions., Radiology | | | | | | + +-------+ +-------+---+---+ +---+---+ | | | +---+---+ + +-------+ +-------+---+---+ | triamcinolone acetonide | Given | 02/28/20 | 40 mg | | | | (KENALOG-40) 40 mg/mL injection | | 15 2:20 | | | | | 40 mg 40 mg, Intra-articular, | | PM PDT | | | | | ONCE, 02/27/15 at 1430, For 1 | | | | | | | dose, Shake well. Not for IV | | | | | | | use., Radiology | | | | | | + +-------+ +-------+---+---+ +---+---+ | | | +---+---+ documented in this encounter"
--- OUTSIDE RECORDS SUMMARY | ~2019-11-17 | XMS | Encounter Summary ---
Demographics + + + | Address | [address] | | | [place] [address] | + + + | Home Phone [...] Team Providers + +------+ + | Care Separator Operator Name | Role | Phone | + +------+ + | Pedrito Gutierrez MD | PCP | | + +------+ + Encounter Details +--------+ + + + + | Date | Type | Department | Care Team | Description | +--------+ + + + + | 07/30/ | Office | Endocrinology, | Beto Meeks MD | | | 2006 | Visit-ECX | Diabetes and | [address] | | | | | Clinical Nutrition | [place], [place] | | | | | [address] | [address] | | | | | Loop Mailcode: OPC5 | [phone] | | | | | Outpatient Clinic | | | | | | [facility], | | | | | | [place] [address] | | | | | | [phone] | | | +--------+ + + + [...] + + + | Blood Pressure | 112/88 | 07/30/2006 3:29 PM | | | | | PST | | + + + + + | Pulse | 88 | 07/30/2006 3:29 PM | | | | | PST [...] | Weight | 88.4 kg (194 lb 12.8 | 07/30/2006 3:29 PM | | | | oz) | PST | | + + + + + | Height | - | - | | + + + + + | Body Mass Index | 28.77 | 07/30/2006 7:41 AM | | | | | PST | | + + + + + documented in this encounter Plan of Treatment Not on filedocumented as of this encounter Visit Diagnoses Not on filedocumented in this encounter"
--- OUTSIDE RECORDS SUMMARY | ~2019-11-17 | XMS | Encounter Summary ---
Demographics + + + | Address | [address] | | | [place] [address] | + + + | Home Phone [...] Team Providers + +------+ + | Care Pocket Flap Creasing Machine Operator Name | Role | Phone [...] as of this encounter Progress Notes Interface, Hand Booked Folder And Stitcher In - 09/13/2005 2:06 AM PST [id number] [facility] Date: 01/02/2005 Clinic: Endocrinology [...] months. Beto Meeks M.D. PD / HS [id number] / [id number] / [id number] / [id number] cc: Chris Padgett M.D. Electronically signed by Beto Meeks 09-12-2005 02:22:56 AM documented i n this encounter Plan of Treatment Not on filedocumented as of this encounter Visit Diagnoses Not on filedocumented in this encounter"
--- OUTSIDE RECORDS SUMMARY | ~2019-11-17 | XMS | Encounter Summary ---
Demographics + + + | Address | [address] | | | [place] [address] | + + + | Home Phone [...] Providers + +------+ + | Care Contract Clerk Automobile Name | Role | Phone | + [...] Rd | Urologist) | | | | [facility] | [place], [place] | | | | | and [place], | [address] | | | | | [facility] | [phone] | | | | | [place], [place] | | | | | | [address] | | | | | | [phone] | | | +--------+ + + + [...]
--- OUTSIDE RECORDS SUMMARY | ~2019-11-17 | XMS | Encounter Summary ---
Demographics + + + | Address | [address] | | | [place] [address] | + + + | Home Phone [...] Team Providers + +------+ + | Care Gift Packer Name | Role | Phone | [...] | | | | [id number] | [place], [place] | | | | | [address] | [address] | | | | | [place], [place] | [phone] | | | | | [address] | | | | | | [phone] | | | +--------+ + + + [...]
--- OUTSIDE RECORDS SUMMARY | ~2019-11-17 | XMS | Encounter Summary ---
Demographics + + + | Address | [address] | | | [place] [address] | + + + | Home Phone [...] Providers + +------+ + | Care Outsole Cementer Machine Name | Role | Phone | [...]
--- OUTSIDE RECORDS SUMMARY | ~2019-11-17 | XMS | Encounter Summary ---
Demographics + + + | Address | [address] | | | [place] [address] | + + + | Home Phone [...] Providers + +------+ + | Care Sausage Grinder Name | Role | Phone | [...] + | 12/10/ | Office | [facility] | [place], | Elevated liver | | 2018 | Visit | MEDICINE [address] | MD [place] | enzymes (Primary | | | | [address] [place] | [address] [facility] | Dx); Limb cramps; | | | | [place] [address] | [place] [address] | Physical | | | | [phone] | [phone] | deconditioning; | | | | | [...] Refill Abdominal Pain Spasms legs and hips [facility] Belinda Meehan is a 57 y.o. y/o [...] is interested in doing physical therapy in [place], pool therapy has helped in the pas [...] with myelopathy, lumbar region Stroke ([facility]) Syncope Tremor Type II or unspecified type [...] (See Comments) Confused and questionable for seizures Zntsxhexdg-Xzrb-Adzqkzyz Cephalexin Hives Duloxetine Migraines and nausea Ketorolac Hives Morphine Swelling Ropinirole Hcl Hives Tramadol Hcl Nausea Only Oheewktrtf-Ctia-Xurceeaa Hives and Rash Ciprofloxacin Hives and Rash [...] Note: Parts of this documentwere created using [email or web address] speech recognition software. As a r esult, [...] [facility] [address] | | | | | | [place] | | | | | | [place] [address] | | | | | | [phone] | | | | | | | | +--------+---------+ + + + | 12/20/ | Office | Otolaryngology | Ulysses Genao MD | | | 2019 | Visit | | [address] [place] | | | | | | [address] [place], | | | | | | [place] [address] | | | | | | [phone] | | | | | | | | +--------+---------+ + + + | 02/15/ | Office | Internal Medicine | Alanis, | | | 2019 | Visit | | MD [place] | | | | | | [address] [place] | | | | | | [place], [place] [address] | | | | | | [phone] | | | | | | | [...] [address] | [place] | [phone] | | [facility] | | [address] | | | - LABORATORY | | [...] [address] | [place] | [phone] | | [facility] | | [address] | | | - LABORATORY | | [...] test | | | | | | ([id number]). | | | | + + + + + + + + | Specimen | + + | Blood | + + + + + | Narrative | Performed At | + + + | Performed at: [address] [address], | REFERENCE LAB | | [place], [place] [id number] Field Training Agent: Bandar Gan MD, Phone: | [facility] | | [phone] | | + + + + + + + + | Performing | Address | City/State/Zipcode | Phone Number | | Organization | | | | + + + + + | REFERENCE LAB | [address] | [place], [place] | [phone] | | [facility] | [place] | [address] | | + + + + + [...]
--- OUTSIDE RECORDS SUMMARY | ~2019-11-17 | XMS | Encounter Summary ---
Demographics + + + | Address | [address] | | | [place] [address] | + + + | Home Phone [...] Providers + +------+ + | Care Information Technology Associate Name | Role | Phone | [...] as of this encounter Progress Notes Interface, Hazardous Materials Driver In - 08/19/2005 2:05 AM PST [id number] [facility] Date: 07/29/2005 Clinic: Hematology [...] pursue aggressive iron supplementation. Lukasz Sellers M.D. nursing technician [employer] / SHARIF [id number] / [id number] / [id number] / [id number] cc: Pedrito Gutierrez M.D. [address] [place] [address] Electronically signed by Lukasz Sellers 08-18-2005 01:28:12 PM documented i n this encounter Plan of Treatment Not on filedocumented as of this encounter Visit Diagnoses Not on filedocumented in this encounter"
--- OUTSIDE RECORDS SUMMARY | ~2019-11-17 | XMS | Encounter Summary ---
Demographics + + + | Address | [address] | | | [place] [address] | + + + | Home Phone [...] Team Providers + +------+ + | Care Adjunct Spanish Instructor Name | Role | Phone | [...] | | | | Clinical Nutrition | [place], [place] | | | | | [address] | [address] | | | | | Loop Mailcode: OPC5 | [phone] | | | | | Outpatient Clinic | | | | | | [facility], | | | | | | [place] [address] | | | | | | [phone] | | | +--------+ + + + [...]
--- OUTSIDE RECORDS SUMMARY | ~2019-11-17 | XMS | Encounter Summary ---
Demographics + + + | Address | [address] | | | [place] [address] | + + + | Home Phone [...] Team Providers + +------+ + | Care Enterprise Application Architect Name | Role | Phone | [...] + + | 03/02/ | Telephone | [facility] | [place], | Lab Results | | 2017 | | MEDICINE [address] [place] [address] | MD [place] | | | | | [facility] | [address] [place] [address] | | | | | [place] [address] | [place] [address] | | | | | [phone] | [phone] | | | | | | | [...] | | | | | [place] [address] | | | | | | [phone] | | | | | | | | +--------+---------+ + + + | 12/20/ | Office | Otolaryngology | Ulysses Genao MD | | | 2020 | Visit | | [address] [place] | | | | | | [address] [place], | | | | | | [place] [address] | | | | | | [phone] | | | | | | | | +--------+---------+ + + + | 02/15/ | Office | Internal Medicine | [place], | | | 2019 | Visit | | MD [place] | | | | | | [address] [place] | | | | | | [place] [address] | | | | | | [phone] | | | | | | | | +--------+---------+ + + + documented as of this encounter Visit Diagnoses Not on filedocumented in this encounter"
--- OUTSIDE RECORDS SUMMARY | ~2019-11-17 | XMS | Encounter Summary ---
Demographics + + + | Address | [address] | | | [place] [address] | + + + | Home Phone | | + + + | Preferred Language | Unknown | + + + | Marital Status | | + + + | Yazidism Affiliation | 1001 | + + + | Race | Unknown | + + + | Ethnic Group | Unknown | + + + Author + + + | Author | [facility] | | | and [place] | + + + | Organization | [facility] | | [...] Team Providers + +------+ + | Care Professor/Nurse Anesthetist Name | Role | Phone | + +------+ + | [place] Thapa | PCP | | | MD | | | + +------+ + Reason for Visit + + + | Reason | Comments | + + + | Appointment Question | | + + + Encounter Details +--------+ + + + + | Date | Type | Department | Care Team | Description | +--------+ + + + + | 10/05/ | Telephone | [facility] | [place], | Appointment Question | | 2018 | | MEDICINE [address] [place] [address] | MD [place] | | | | | [facility] | [address] [place] [address] | | | | | [place] [address] | [place] [address] | | | | | [phone] | [phone] | | | | | | | [...] | Visit | | [facility] [address] | | | | | | [address] [place] | | | | | | [place] [address] | | | | | | [phone] | | | | | | | | +--------+---------+ + + + | 12/20/ | Office | Otolaryngology | Ulysses Genao MD | | | 2019 | Visit | | [address] [place] | | | | | | [address] [place], | | | | | | [place] [address] | | | | | | [phone] | | | | | | | | +--------+---------+ + + + | 02/15/ | Office | Internal Medicine | [place]is, | | | 2019 | Visit | | MD [place] | | | | | | [address] | | | | | | [place] [address] | | | | | | [phone] | | | | | | | | +--------+---------+ + + + documented as of this encounter Visit Diagnoses Not on filedocumented in this encounter"
--- OUTSIDE RECORDS SUMMARY | ~2019-11-17 | XMS | Encounter Summary ---
Demographics + + + | Address | [address] | | | [place] [address] | + + + | Home Phone [...] | Organization | [facility] [...] Providers + +------+ + | Care Senior Validation Engineer Name | Role | Phone | [...] + + | 04/08/ | Telephone | [facility] | [place], | Headache | | 2017 | | MEDICINE [address] [place] [address] | MD [place] | | | | | [facility] | [address] [place] [address] | | | | | [place] [address] | [place] [address] | | | | | [phone] | [phone] | | | | | | | [...] Visit | | [facility] [address] | | | | | | [address] [place] | | | | | | [place] [address] | | | | | | [phone] | | | | | | | | +--------+---------+ + + + | 12/20/ | Office | Otolaryngology | Ulysses Genao MD | | | 2019 | Visit | | [address] [place] | | | | | | [address] [place], | | | | | | [place] [address] | | | | | | [phone] | | | | | | | | +--------+---------+ + + + | 02/15/ | Office | Internal Medicine | [place]is, | | | 2019 | Visit | | MD [place] | | | | | | [address] [place] | | | | | | [place] [address] | | | | | | [phone] | | | | | | | | +--------+---------+ + + + documented as of this encounter Visit Diagnoses Not on filedocumented in this encounter"
--- OUTSIDE RECORDS SUMMARY | ~2019-11-17 | XMS | Encounter Summary ---
[...] Providers + +------+ + | Care Diamond Cleaner Name | Role | Phone | [...] | | | | | [place], | | | | | | [place] [address] | | | +--------+ + + + [...] | Patient: BELINDA MEEHAN J Med Rec: [id number] Sex F Bdate: 1960 | | Date/Time Data | | Entered Into [facility] | | Anesth PostOp | | Surgery Date [id number] 12/09/04 10:30 | | [id number] 11/23/03 10:57 | | Anesthesiologist SYEDA ANDREWS [...]
--- OUTSIDE RECORDS SUMMARY | ~2019-11-17 | XMS | Encounter Summary ---
Demographics + + + | Address | [address] | | | [place] [address] | + + + | Home Phone [...] Team Providers + +------+ + | Care Curb Setter Name | Role | Phone | [...] | | [facility] | [place], [place] | | | | | [address] | [address] | | | | | [address] | [phone] | | | | | Physician's | | | | | | Pavilion, 1st floor | | | | | | [place], [place] | | | | | | [address] | | | | | | [phone] | | | +--------+ + + + [...]
--- OUTSIDE RECORDS SUMMARY | ~2019-11-17 | XMS | Encounter Summary ---
Demographics + + + | Address | [address] | | | [place] [address] | + + + | Home Phone [...] Team Providers + +------+ + | Care Funeral Professional Name | Role | Phone | [...] floor | | | | | | [place], [place] | | | | | | [address] | | | | | | [phone] | | | +--------+------+ + + + [...] | + + + + + | [facility] | [address] [facility] | [place] [address] | | | PATHOLOGY | [address] | | | + + + + + | [facility] | [address] [facility] | [place] [address] | | | PATHOLOGY | [address] [...] Performed At | + + + | [id number] Estimated GFR > 60 mL/min/1.73 sq m if non- | [facility] | | Nauruan [id number] Estimated GFR > 60 mL/min/1.73 sq m if | DEPARTMENT OF | | Nauruan GFR is estimated using the MDRD equation [...] | + + + + + | [facility] | [address] | [place] [address] | | | PATHOLOGY | [address] | | | + + + + + | [facility] | [address] | [place] [address] | | | PATHOLOGY | [address] [...] ([address] [facility]) | | | [facility] [place] [address] [facility] | | | [place] [address] | | + + + + + + + + | Performing | Address | City/State/Zipcode | Phone Number | | Organization | | | | + + + + + | [facility] | [address] | [place] [address] | | | LABORATORY | | | [...] ([address] [facility]) | | | [facility] [place] [address] | | | [place] [address] | | + + + + + + + + | Performing | Address | City/State/Zipcode | Phone Number | | Organization | | | | + + + + + | [facility] | [address] | [place] [address] | | | LABORATORY | | | | + + + + + documented in this encounter Visit Diagnoses + + | Diagnosis | + + | Hypothyroidism Unspecified hypothyroidism | + + | Edema | + + documented in this encounter"
--- OUTSIDE RECORDS SUMMARY | ~2019-11-17 | XMS | Encounter Summary ---
Demographics + + + | Address | [address] | | | [place] [address] | + + + | Home Phone [...] Providers + +------+ + | Care Head Of Sales And Marketing Name | Role | Phone | + +------+ + PCP | Unavailable | + +------+ + Encounter Details +--------+ + + + + | Date | Type | Department | Care Team | Description | +--------+ + + + + | 09/18/ | Office | | Note, Outpatient | [...] as of this encounter Progress Notes Interface, Phlebotomy Tech In - 10/15/2005 2:06 AM PDT [id number] [facility] Date: 09/18/2005 Clinic: Ms. Meehan is well known to me. 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 Since her panniculectomy, she has had intermittent episodes of abdominal pain, and she was explored laparoscopically about 2 months ago, and we saw many adhesions in the pelvis probably from her previous hysterectomy. We lysed these and freed up the small bowel. She had been well until a week ago but again began to have some of the pain. Today she comes in and her weight is 168.4 pounds and stable, blood pressure 110/70, and pulse 64. She says her pain is 10/10 today, but on abdominal exam, the abdomen is soft with really minimal pain. Her abdominal x-rays are normal. I think she has irritable bowel, and I will try some tablets and see her in followup in about a month. Chris Padgett M.D. / [id number] / [id number] / [id number] / [id number] Electronically signed by Chris Padgett 10-14-2005 08:13:46 AM documented i n this encounter Plan of Treatment Not on filedocumented as of this encounter Visit Diagnoses Not on filedocumented in this encounter"
--- OUTSIDE RECORDS SUMMARY | ~2019-11-17 | XMS | Encounter Summary ---
Demographics + + + | Address | [address] | | | [place] [address] | + + + | Home Phone [...] Providers + +------+ + | Care Inspector Rough Castings Name | Role | Phone | + [...] + + | 03/15/ | Telephone | [facility] | [place], | Appointment | | 2018 | | MEDICINE [address] [place] [address] | MD [place] | | | | | [facility] | [address] [place] [address] | | | | | [place] [address] | [place] [address] | | | | | [phone] | [phone] | | | | | | | [...] Visit | | [facility] [address] | | | | | | [address] [place] | | | | | | [place] [address] | | | | | | [phone] | | | | | | | | +--------+---------+ + + + | 12/20/ | Office | Otolaryngology | Ulysses Genao MD | | | 2020 | Visit | | [address] | | | | | | [address] [place], | | | | | | [place] [address] | | | | | | [phone] | | | | | | | | +--------+---------+ + + + | 02/15/ | Office | Internal Medicine | [place]is, | | | 2019 | Visit | | MD [place] | | | | | | [address] | | | | | | [place] [address] | | | | | | [phone] | | | | | | | | +--------+---------+ + + + documented as of this encounter Visit Diagnoses Not on filedocumented in this encounter"
--- OUTSIDE RECORDS SUMMARY | ~2019-11-17 | XMS | Encounter Summary ---
Demographics + + + | Address | [address] | | | [place] [address] | + + + | Home Phone | | + + + | Preferred Language | Unknown | + + + | Marital Status | | + + + | Yazidism Affiliation | 1001 | + + + | Race | Unknown | + + + | Ethnic Group | Unknown | + + + Author + + + | Author | [facility] | | | and [place] | + + + | Organization | [facility] | | | [...] Team Providers + +------+ + | Care Winding Operator Name | Role | Phone | [...] + + | 03/01/ | Telephone | [facility] | Alanis, | Other | | 2018 | | MEDICINE [address] [place] [address] | MD Petrona | | | | | [facility] | [address] [place] [address] | | | | | [place] [address] | [place] [address] | | | | | [phone] | [phone] | | | | | | | [...] | | | | | [place] [address] | | | | | | [phone] | | | | | | | | +--------+---------+ + + + | 12/20/ | Office | Otolaryngology | Ulysses Genao MD | | | 2019 | Visit | | [address] [place] | | | | | | [address] [place], | | | | | | [place] [address] | | | | | | [phone] | | | | | | | | +--------+---------+ + + + | 02/15/ | Office | Internal Medicine | Alanis, | | | 2019 | Visit | | MD Petrona | | | | | | [address] | | | | | | [place] [address] | | | | | | [phone] | | | | | | | | +--------+---------+ + + + documented as of this encounter Visit Diagnoses Not on filedocumented in this encounter"
--- OUTSIDE RECORDS SUMMARY | ~2019-11-17 | XMS | Encounter Summary ---
Demographics + + + | Address | [address] | | | [place] [address] | + + + | Home Phone | | + + + | Preferred Language | Unknown | + + + | Marital Status | | + + + | Voodoo Affiliation | 1001 | + + + [...] Team Providers + +------+ + | Care Dialysis Chief Equipment Technician Name | Role | Phone [...] + + | 06/02/ | Telephone | [facility] | Alanis, | Results | | 2017 | | MEDICINE [address] | MD Petrona | | | | | [facility] | [address] [facility] | | | | | [place] [address] | [place] [address] | | | | | [phone] | [phone] | | | | | | | [...] | | | | | [place] [address] | | | | | | [phone] | | | | | | | | +--------+---------+ + + + | 12/20/ | Office | Otolaryngology | Ulysses Genao MD | | | 2019 | Visit | | [address] [place] | | | | | | [address] [place], | | | | | | [place] [address] | | | | | | [phone] | | | | | | | | +--------+---------+ + + + | 02/15/ | Office | Internal Medicine | Alanis, | | | 2019 | Visit | | MD Petrona | | | | | | [address] | | | | | | [place] [address] | | | | | | [phone] | | | | | | | | +--------+---------+ + + + documented as of this encounter Visit Diagnoses Not on filedocumented in this encounter"
--- OUTSIDE RECORDS SUMMARY | ~2019-11-17 | XMS | Encounter Summary ---
Demographics + + + | Address | [address] | | | [place] [address] | + + + | Home Phone [...] Team Providers + +------+ + | Care Carpet Mechanic Name | Role | Phone | [...] + + | 04/08/ | Telephone | [facility] | Alanis, | Headache | | 2017 | | MEDICINE [address] [place] [address] | MD Petrona | | | | | [facility] | [address] [place] [address] | | | | | [place] [address] | [place] [address] | | | | | [phone] | [phone] | | | | | | | [...] | | | | | [place] [address] | | | | | | [phone] | | | | | | | | +--------+---------+ + + + | 12/20/ | Office | Otolaryngology | Ulysses Genao MD | | | 2019 | Visit | | [address] [place] | | | | | | [address] [place], | | | | | | [place] [address] | | | | | | [phone] | | | | | | | | +--------+---------+ + + + | 02/15/ | Office | Internal Medicine | Alanis, | | | 2019 | Visit | | MD Petrona | | | | | | [address] | | | | | | [place] [address] | | | | | | [phone] | | | | | | | | +--------+---------+ + + + documented as of this encounter Visit Diagnoses Not on filedocumented in this encounter"
--- OUTSIDE RECORDS SUMMARY | ~2019-11-17 | XMS | Encounter Summary ---
Demographics + + + | Address | [address] | | | [place] [address] | + + + | Home Phone [...] Team Providers + +------+ + | Care Forge Shop Supervisor Name | Role | Phone [...] as of this encounter Progress Notes Interface, Welfare Case Worker In - 02/15/2006 2:03 AM PDT [id number] GEOVANNI SKELTON Molly [id number] Clinic Date: 10/23/2005 Clinic: Endocrinology Subjective: Belinda [...] her back on October 06, 2005, in [place], [place]. This study showed a moderate central disk bulge at L4-L5 consistent with a herniated nucleus pulposus. There has been some discussion by her physicians in [place] about the possibility of giving her epidural [...] most recent laboratory studies were performed in [place] on July 02, 2005. At that time, [...] months. Beto Meeks M.D. PD / HS [id number] / [id number] / [id number] / cc: Joanna Arshad M.D. [address] [place] [address] Electronically signed by Beto Meeks 02-14-2006 02:02:42 AM documented i n this encounter Plan of Treatment Not on filedocumented as of this encounter Visit Diagnoses Not on filedocumented in this encounter"
--- OUTSIDE RECORDS SUMMARY | ~2019-11-17 | XMS | Encounter Summary ---
Demographics + + + | Address | [address] | | | [place] [address] | + + + | Home Phone [...] Team Providers + +------+ + | Care Molded Frames Assembler Name | Role | Phone | [...] Medication requested | | 2007 | | [place] [address] | [address] | (sucralfate | | | | Ave Mailcode: CH4S | [facility] | (CARAFATE) 1 gram | | | | [facility] | [place], [place] | Oral Tablet) | | | | and Healing, | [address] | | | | | [facility] | [phone] | | | | | [place], [place] | | | | | | [address] | | | | | | [phone] | | | +--------+ + + + [...]
--- OUTSIDE RECORDS SUMMARY | ~2019-11-17 | XMS | Encounter Summary ---
Demographics + + + | Address | [address] | | | [place] [address] | + + + | Home Phone [...] Providers + +------+ + | Care Claim Processor Name | Role | Phone | [...] | at [facility] [place] [facility] | | | | | [address] | [place] [address] | | | | | [address] | | | | | | [place], 2nd floor | | | | | | [place], [place] | | | | | | [address] | | | | | | [phone] | | | +--------+ + + + [...]
--- OUTSIDE RECORDS SUMMARY | ~2019-11-17 | XMS | Encounter Summary ---
Demographics + + + | Address | [address] | | | [place] [address] | + + + | Home Phone [...] Providers + +------+ + | Care Tool Repair Technician Name | Role | Phone | [...] as of this encounter Progress Notes Interface, Accounting Technician In - 08/22/2005 2:06 AM PST [id number] GEOVANNI Barnes Clinic Date: 07/31/2005 Clinic: Surgery [...] by [facility] in [place]. Quantity 35 was requested and will be filled. I will send a prescription for 40 additional oxycodone 5 mg. The patient will be seen in clinic in one week. Melisa Thorne / SHARIF [id number] / [id number] / [id number] / [id number] Electronically signed by Kenisha Melton 08-21-2005 07:00:10 PM documented corrie cortes this encounter Plan of Treatment Not on filedocumented as of this encounter Visit Diagnoses Not on filedocumented in this encounter"
--- OUTSIDE RECORDS SUMMARY | ~2019-11-17 | XMS | Encounter Summary ---
Demographics + + + | Address | [address] | | | [place] [address] | + + + | Home Phone [...] Team Providers + +------+ + | Care Mapping Engineer Name | Role | Phone | + +------+ + | Petrona Thapa | PCP | | | MD | | | + +------+ + Reason for Visit + + + | Reason | Comments | + + + | Wrist Pain | | + + + Encounter Details +--------+ + + + + | Date | Type | Department | Care Team | Description | +--------+ + + + + | 10/16/ | Telephone | [facility] | Alanis, | Wrist Pain | | 2018 | | MEDICINE [address] [place] [address] | MD Petrona | | | | | [facility] | [address] [place] [place] [address] | | | | | [place] [address] | [place] [address] | | | | | [phone] | [phone] | | | | | | | [...] | | | | | [place] [address] | | | | | | [phone] | | | | | | | | +--------+---------+ + + + | 12/20/ | Office | Otolaryngology | Ulysses Genao MD | | | 2020 | Visit | | [address] [place] | | | | | | [address] [place], | | | | | | [place] [address] | | | | | | [phone] | | | | | | | | +--------+---------+ + + + | 02/15/ | Office | Internal Medicine | Alanis, | | | 2019 | Visit | | MD Petrona | | | | | | [address] | | | | | | [place] [address] | | | | | | [phone] | | | | | | | | +--------+---------+ + + + documented as of this encounter Visit Diagnoses Not on filedocumented in this encounter"
--- OUTSIDE RECORDS SUMMARY | ~2019-11-17 | XMS | Encounter Summary ---
Demographics + + + | Address | [address] | | | [place] [address] | + + + | Home Phone [...] Team Providers + +------+ + | Care Mock Up Maker Name | Role | Phone | [...] as of this encounter Progress Notes Interface, Counter Stitcher In - 01/03/2006 3:02 AM [facility] [place] [address] [place], [place] [address] or November 01, 2002 Pedrito Gutierrez M.D. [facility] [address] [place] [id number] RE: BELINDA MEEHAN MR #: [id number] Dear Dr. Gutierrez: Belinda was seen in [...] be referred for bariatric surgery here at [facility]. We have several physicians who perform [...] Sincerely, Maurilio Estrada M.D. KRIS / SHARIF [id number] / [id number] / [id number] / Tdocumented in this encounter Plan of Treatment Not on filedocumented as of this encounter Visit Diagnoses Not on filedocumented in this encounter"
--- OUTSIDE RECORDS SUMMARY | ~2019-11-17 | XMS | Encounter Summary ---
Demographics + + + | Address | [address] | | | [place] [address] | + + + | Home Phone [...] Team Providers + +------+ + | Care Burn Center Nurse Name | Role | Phone | + +------+ + | Sulaiman Carrera MD | PCP | | + +------+ + Encounter Details +--------+ + + + + | Date | Type | Department | Care Team | Description | +--------+ + + + + | 08/26/ | Ancillary | Registration [id number] | | | | 2006 | Registratio | [facility] | | | | | n | Peterson Mailcode: RPB07 | | | | | | [place], [place] | | | | | | [address] | | | | | | [phone] | | | +--------+ + + + [...]
--- OUTSIDE RECORDS SUMMARY | ~2019-11-17 | XMS | Encounter Summary ---
Demographics + + + | Address | [address] | | | [place] [address] | + + + | Home Phone [...] Providers + +------+ + | Care Rn Traveling Name | Role | Phone | + [...] as of this encounter Progress Notes Interface, Rack Production Worker In - 01/11/2005 11:07 PM PDT Referred [...] is being seen by an orthopedist in [place]. She brings her brace today which she states is going well. The patient, however, yesterday awoke with neck stiffness and pain with spasming type pains in the area of her neck. She was seen in the emergency room last night in [place] for injection after a migraine. She states [...] Jesus M.D. Domingo Lozoya M.D. Gokul P [id number] cc: Pedrito Gutierrez MD [address] [place], [place] [email or web address] signed by Interface, Rack Production Worker In at 5 11:07 PM PDTdocumented in this encounter Plan of Treatment Not on filedocumented as of this encounter Visit Diagnoses Not on filedocumented in this encounter"
--- OUTSIDE RECORDS SUMMARY | ~2019-11-17 | XMS | Encounter Summary ---
Demographics + + + | Address | [address] | | | [place] [address] | + + + | Home Phone | | + + + | Preferred Language | Unknown | + + + | Marital Status | | + + + | Hindu Affiliation | 1001 | + + + | Race | Unknown | + + + | Ethnic Group | Unknown | + + + Author + + + | Author | [facility] | | | and [place] | + + + | Organization | [facility] | | [...] Providers + +------+ + | Care Scrap Wheeler Name | Role | Phone | + [...] + + | 07/14/ | Refill | [facility] | Alanis, | Medication Refill | | 2017 | | MEDICINE [address] [place] [address] | MD Petrona | | | | | [facility] | [address] [place] [address] | | | | | [place] [address] | [place] [address] | | | | | [phone] | [phone] | | | | | | | [...] | | 2019 | Visit | | [facility] [address] | | | | | [address] [place] | | | | | | [place] [address] | | | | | | [phone] | | | | | | | | +--------+---------+ + + + | 12/20/ | Office | Otolaryngology | Ulysses Genao MD | | | 2019 | Visit | | [address] [place] | | | | | | [address] [place], | | | | | | [place] [address] | | | | | | [phone] | | | | | | | | +--------+---------+ + + + | 02/15/ | Office | Internal Medicine | Alanis, | | | 2019 | Visit | | MD Petrona | | | | | | [address] [place] [address] [place] | | | | | | [place] [address] | | | | | | [phone] | | | | | | | | +--------+---------+ + + + documented as of this encounter Visit Diagnoses Not on filedocumented in this encounter"
--- OUTSIDE RECORDS SUMMARY | ~2019-11-17 | XMS | Encounter Summary ---
Demographics + + + | Address | [address] | | | [place] [address] | + + + | Home Phone [...] Author | [facility] | | | and [...] Providers + +------+ + | Care Account Coordinator Name | Role | Phone | + +------+ + | Petrona Thapa | PCP | | | MD | | | + +------+ + Reason for Visit + + + | Reason | Comments | + + + | Follow-up | | + + + Encounter Details +--------+ + + + + | Date | Type | Department | Care Team | Description | +--------+ + + + + | 12/13/ | Telephone | [facility] | Alanis, | Follow-up | | 2019 | | MEDICINE [address] [place] [address] | MD Petrona | | | | | [facility] | [address] [place] [address] | | | | | [place] [address] | [place] [address] | | | | | [phone] | [phone] | | | | | | | [...] | | | | | [place] [address] | | | | | | [phone] | | | | | | | | +--------+---------+ + + + | 12/20/ | Office | Otolaryngology | Ulysses Genao MD | | | 2020 | Visit | | [address] [place] | | | | | | [address] [place], | | | | | | [place] [address] | | | | | | [phone] | | | | | | | | +--------+---------+ + + + | 02/15/ | Office | Internal Medicine | Alanis, | | | 2019 | Visit | | MD Petrona | | | | | | [address] [place] | | | | | | [place] [address] | | | | | | [phone] | | | | | | | | +--------+---------+ + + + documented as of this encounter Visit Diagnoses Not on filedocumented in this encounter"
--- OUTSIDE RECORDS SUMMARY | ~2019-11-17 | XMS | Encounter Summary ---
Demographics + + + | Address | [address] | | | [place] [address] | + + + | Home Phone [...] Mailcode: CH4S | [facility] | | | | | [facility] | [place], [place] | | | | | and Healing, | [address] | | | | | [facility] | [phone] | | | | | Floor [place], [place] | | | | | | [address] | | | | | | [phone] | | | +--------+ + + + [...]
--- OUTSIDE RECORDS SUMMARY | ~2019-11-17 | XMS | Encounter Summary ---
Demographics + + + | Address | [address] | | | [place] [address] | + + + | Home Phone [...] Providers + +------+ + | Care Keg Washer Name | Role | Phone | + [...] Rd | | | | | | [place], [place] | | | | | | [address] | | | +--------+ + + + [...] as of this encounter Progress Notes Interface, Wastewater Process Engineer In - 03/12/2007 2:28 AM PDT [id number] GEOVANNI Barnes [id number] Clinic Date: 02/23/2007 Clinic: Endocrinology Subjective: Belinda [...] performed next Thursday, March 01, 2007, in [place]. The right knee will be replaced in [...] patch 25 mcg for 72 hours. 2. [place]/acetaminophen 10 mg/325 mg, 1 every 6 hours [...] months. Beto Meeks M.D. PD / HS [id number] / [id number] / [id number] / [id number] cc: Pedrito Gutierrez M.D. [address] [place] [address] Chris Padgett M.D. Department of Surgery, [facility] Electronically signed by Beto Meeks 03-11-2007 04:41:13 PM nterface, Wastewater Process Engineer In - 03/12/2007 2:28 AM PDT [id number] GEOVANNI SKELTON J [id number] Clinic Date: 02/23/2007 Clinic: Endocrinology Belinda Meehan [...] her primary care provider, Dr. Gutierrez in [place]. She had a followup eye exam today, [...] replacement next Thursday (in 6 days) in [place], [place]. The right knee replacement tentatively will [...] as needed. Beto Meeks M.D. / SHARIF [id number] / [id number] / [id number] / [id number] cc: Pedrito Gutierrez M.D. [address] [place] [address] Joanna Arshad M.D. Electronically signed by Beto Meeks 03-11-2007 04:41:08 PM documented in this encounter Plan of Treatment Not on filedocumented as of this encounter Visit Diagnoses Not on filedocumented in this encounter"
--- OUTSIDE RECORDS SUMMARY | ~2019-11-17 | XMS | Encounter Summary ---
Demographics + + + | Address | [address] | | | [place] [address] | + + + | Home Phone [...] Providers + +------+ + | Care Insurance Account Manager Name | Role | Phone | [...] + + | 10/16/ | Telephone | [facility] | Alanis, | Wrist Pain | | 2018 | | MEDICINE [address] [place] [address] | MD Petrona | | | | | [facility] | [address] [place] [address] | | | | | [place] [address] | [place] [address] | | | | | [phone] | [phone] | | | | | | | [...] | | 2019 | Visit | | [facility] [address] | | | | | | [address] [place] | | | | | | [place] [address] | | | | | | [phone] | | | | | | | | +--------+---------+ + + + | 12/20/ | Office | Otolaryngology | Ulysses Genao MD | | | 2020 | Visit | | [address] | | | | | | [address] [place], | | | | | | [place] [address] | | | | | | [phone] | | | | | | | | +--------+---------+ + + + | 02/15/ | Office | Internal Medicine | Alanis, | | | 2019 | Visit | | MD Petrona | | | | | | [address] | | | | | | [place] [address] | | | | | | [phone] | | | | | | | | +--------+---------+ + + + documented as of this encounter Visit Diagnoses Not on filedocumented in this encounter"
--- OUTSIDE RECORDS SUMMARY | ~2019-11-17 | XMS | Encounter Summary ---
Demographics + + + | Address | [address] | | | [place] [address] | + + + | Home Phone [...] Description | +--------+--------+ + + + | 01/12/ | Refill | [facility] | Alanis, | Medication Refill | | 2017 | | MEDICINE [address] [place] [address] | MD Petrona | | | | | [facility] | [address] [place] [address] | | | | | [place] [address] | [place] [address] | | | | | [phone] | [phone] | | | | | | | [...] | Visit | | [facility] [address] | | | | | [address] [place] | | | | | | [place] [address] | | | | | | [phone] | | | | | | | | +--------+---------+ + + + | 12/20/ | Office | Otolaryngology | Ulysses Genao MD | | | 2019 | Visit | | [address] | | | | | | [address] [place], | | | | | | [place] [address] | | | | | | [phone] | | | | | | | | +--------+---------+ + + + | 02/15/ | Office | Internal Medicine | Alanis, | | | 2019 | Visit | | MD Petrona | | | | | | [address] [place] [address] [address] | | | | | | [place] [address] | | | | | | [phone] | | | | | | | | +--------+---------+ + + + documented as of this encounter Visit Diagnoses Not on filedocumented in this encounter"
--- OUTSIDE RECORDS SUMMARY | ~2019-11-17 | XMS | Encounter Summary ---
Demographics + + + | Address | [address] | | | [place] [address] | + + + | Home Phone [...] Team Providers + +------+ + | Care Videotape Operator Name | Role | Phone | [...]
--- OUTSIDE RECORDS SUMMARY | ~2019-11-17 | XMS | Encounter Summary ---
Demographics + + + | Address | [address] | | | [place] [address] | + + + | Home Phone [...] + +------+ + | Care Supply Chain Logistics Manager Name | Role | Phone | + +------+ + PCP | Unavailable | + +------+ + Encounter Details +--------+ + + + + | Date | Type | Department | Care Team | Description | +--------+ + + + + | 11/22/ | Results | | Other, Faculty | | | 2004 | Only | | [phone] | | +--------+ + + + + [...] + | Ordered by SYEDA MCKENZIE | [facility] | | | DEPARTMENT OF | | | PATHOLOGY | + + + + + + + + | Performing | Address | City/State/Zipcode | Phone Number | | Organization | | | | + + + + + | [facility] DEPARTMENT OF | [address] [facility] | [place] [address] | | | PATHOLOGY | [address] | | | + + + + + | [place] DEPARTMENT OF | [address] | [place] [address] | | | PATHOLOGY | [address] [...] | + + + + + | [facility] DEPARTMENT | [address] [facility] | [place] [address] | | | PATHOLOGY | [address] | | | + + + + + | [facility] | [address] [facility] | [place] [address] | | | PATHOLOGY | [address] [...] | + + + + + | [facility] | [address] [facility] | [place] [address] | | | PATHOLOGY | [address] | | | + + + + + | [facility] | [address] [facility] | [place] [address] | | | PATHOLOGY | [address] [...] DEPARTMENT OF | [address] | [place] [address] | | | PATHOLOGY | [address] | | | + + + + + | [facility] DEPARTMENT OF | [address] | [place] [address] | | | PATHOLOGY | [address] [...] DEPARTMENT OF | [address] | [place] [address] | | | PATHOLOGY | [address] | | | + + + + + | [facility] DEPARTMENT OF | [address] | [place] [address] | | | PATHOLOGY | [address] [...] | + + + + + | [facility] DEPARTMENT | [address] | [place] [address] | | | PATHOLOGY | [address] | | | + + + + + | [facility] DEPARTMENT OF | [address] | [place] [address] | | | PATHOLOGY | [address] | | | + + + + + documented in this encounter Visit Diagnoses Not on filedocumented in this encounter"
--- OUTSIDE RECORDS SUMMARY | ~2019-11-17 | XMS | Encounter Summary ---
Demographics + + + | Address | [address] | | | [place] [address] | + + + | Home Phone [...] Team Providers + +------+ + | Care Spreader Box Operator Name | Role | Phone | [...] as of this encounter Progress Notes Interface, Lehr Stripper In - 07/09/2005 2:07 AM PST [id number] GEOVANNI Barnes Clinic Date: 07/03/2005 Clinic: Ms. Vasquez [...] this operation. Chris Padgett M.D. ROSA / [id number] / [id number] / [id number] / [id number] Electronically signed by Chris Padgett 07-08-2005 01:45:20 PM documented i n this encounter Plan of Treatment Not on filedocumented as of this encounter Visit Diagnoses Not on filedocumented in this encounter"
--- OUTSIDE RECORDS SUMMARY | ~2019-11-17 | XMS | Encounter Summary ---
Demographics + + + | Address | [address] | | | [place] [address] | + + + | Home Phone [...] Team Providers + +------+ + | Care Perinatal Director Name | Role | Phone | [...] [address] | | | | | | [place], [place] | | | | | | [address] | | | | | | [phone] | | | +--------+ + + + [...]
--- OUTSIDE RECORDS SUMMARY | ~2019-11-17 | XMS | Encounter Summary ---
Demographics + + + | Address | [address] | | | [place] [address] | + + + | Home Phone [...] Providers + +------+ + | Care Social Media Marketing Specialist Name | Role | Phone [...] + + | 07/14/ | Refill | [facility] | Alanis, | Medication Refill | | 2017 | | MEDICINE [address] [place] [address] | MD Petrona | | | | | [facility] | [address] [place] [address] | | | | | [place] [address] | [place] [address] | | | | | [phone] | [phone] | | | | | | | [...] | | 2019 | Visit | | [facility] [address] | | | | | | [address] [place] | | | | | | [place] [address] | | | | | | [phone] | | | | | | | | +--------+---------+ + + + | 12/20/ | Office | Otolaryngology | Ulysses Genao MD | | | 2019 | Visit | | [address] | | | | | | [address] [place], | | | | | | [place] [address] | | | | | | [phone] | | | | | | | | +--------+---------+ + + + | 02/15/ | Office | Internal Medicine | Alanis, | | | 2019 | Visit | | MD Petrona | | | | | | [address] [place] [address] [address] | | | | | | [place] [address] | | | | | | [phone] | | | | | | | | +--------+---------+ + + + documented as of this encounter Visit Diagnoses Not on filedocumented in this encounter"
--- OUTSIDE RECORDS SUMMARY | ~2019-11-17 | XMS | Encounter Summary ---
Demographics + + + | Address | [address] | | | [place] [address] | + + + | Home Phone [...] Team Providers + +------+ + | Care Grants Assistant Name | Role | Phone | [...] as of this encounter Progress Notes Interface, Annual Campaign Manager In - 08/14/2005 2:05 AM PST [id number] [facility] Date: 08/06/2005 Clinic: Rheumatology [...] of antiinflammatory diet that one of the cross country coach in [place] has written a book about, and I have had a patient do extremely well with it in terms of her IBS and fibromyalgia pain and fatigue. Belinda is interested in this and will pursue it. 3. I have given her a lot of articles that she can pass onto her physicians in [place]. She would like somebody there to learn [...] 4 months. Caitlin Rivera M.S., F.N.P. / [id number] / [id number] / [id number] / [id number] cc: Pedrito Gutierrez M.D. [address] [place] [address] Electronically signed by Caitlin Rivera 08-13-2005 03:37:47 PM documented i n this encounter Plan of Treatment Not on filedocumented as of this encounter Visit Diagnoses Not on filedocumented in this encounter"
--- OUTSIDE RECORDS SUMMARY | ~2019-11-17 | XMS | Encounter Summary ---
Demographics + + + | Address | [address] | | | [place] [address] | + + + | Home Phone [...] Providers + +------+ + | Care Meat Lugger Name | Role | Phone | + [...] as of this encounter Progress Notes Interface, Breeder Hen Service Technician In - 08/30/2005 2:07 AM PST [id number] [facility] Date: 08/11/2005 Clinic: Colorectal [...] Rebekah Navas M.D. Chris Padgett M.D. / [id number] / [id number] / [id number] / [id number] E: 08/14/2005 krfrancesco cc: Dr. Sarah De Jesus, [place] Electronically signed by Chris Padgett 08-29-2005 03:28:30 PM documented i n this encounter Plan of Treatment Not on filedocumented as of this encounter Visit Diagnoses Not on filedocumented in this encounter"
--- OUTSIDE RECORDS SUMMARY | ~2019-11-17 | XMS | Encounter Summary ---
Demographics + + + | Address | [address] | | | [place] [address] | + + + | Home Phone [...] Team Providers + +------+ + | Care Curing Oven Tender Name | Role | Phone | [...] Pavilion | | | | | | [place], [place] | | | | | | [address] | | | | | | [phone] | | | +--------+ + + + [...]
--- OUTSIDE RECORDS SUMMARY | ~2019-11-17 | XMS | Encounter Summary ---
Demographics + + + | Address | [address] | | | [place] [address] | + + + | Home Phone [...] Providers + +------+ + | Care Software Project Manager Name | Role | Phone [...] | | | | | (degenerativ | [place] | [place] | | | | | e joint | [address] | [address] | | | | | disease) of | | Phone: | | | | | knee Knee | | [phone] | | | | | pain Major | | Fax: | | | | | depressive | | [phone] | | | | | disorder, | [...] + + + + | 04/20/ | Postdoctoral Research Fellow | [facility] Comprehensive | Miranda Lambert, | LBP (Low Back Pain); | | 2006 | | Pain Center at | ANP | 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
--- OUTSIDE RECORDS SUMMARY | ~2019-11-17 | XMS | Encounter Summary ---
Demographics + + + | Address | [address] | | | [place] [address] | + + + | Home Phone [...] Team Providers + +------+ + | Care Welder Assistant Name | Role | Phone | [...] + + | 07/27/ | Telephone | [facility] | Alanis, | Other | | 2020 | | MEDICINE [address] [place] [address] | MD Petrona | | | | | [facility] | [address] [place] [address] | | | | | [place] [address] | [place] [address] | | | | | [phone] | [phone] | | | | | | | [...] | | [facility] [address] | | | | | [address] [place] | | | | | | [place] [address] | | | | | | [phone] | | | | | | | | +--------+---------+ + + + | 12/20/ | Office | Otolaryngology | Ulysses Genao MD | | | 2019 | Visit | | [address] | | | | | | [address] [place], | | | | | | [place] [address] | | | | | | [phone] | | | | | | | | +--------+---------+ + + + | 02/15/ | Office | Internal Medicine | Alanis, | | | 2019 | Visit | | MD Petrona | | | | | | [address] [place] | | | | | | [place] [address] | | | | | | [phone] | | | | | | | | +--------+---------+ + + + documented as of this encounter Visit Diagnoses Not on filedocumented in this encounter"
--- OUTSIDE RECORDS SUMMARY | ~2019-11-17 | XMS | Encounter Summary ---
Demographics + + + | Address | [address] | | | [place] [address] | + + + | Home Phone [...] Team Providers + +------+ + | Care Form Builder Helper Name | Role | Phone | [...] | Visit | [facility] [address] | TA[address]ER | syndrome [address] | | | | [address] | | (Primary Dx); | | | | Physician's | | Fibromyalgia | | | | Pavilion, 4th Floor | | | | | | [place], [place] | | | | | | [address] | | | | | | [phone] | | | +--------+---------+ + + + [...] + + +--------+ + + | IA INJECT TRIGGER | Procedures | Routin | [...]
--- OUTSIDE RECORDS SUMMARY | ~2019-11-17 | XMS | Encounter Summary ---
Demographics + + + | Address | [address] | | | [place] [address] | + + + | Home Phone [...] Providers + +------+ + | Care Manager Eligibility Name | Role | Phone | + [...] Pavilion | | | | | | [place], [place] | | | | | | [address] | | | | | | [phone] | | | +--------+ + + + [...]
--- OUTSIDE RECORDS SUMMARY | ~2019-11-17 | XMS | Encounter Summary ---
Demographics + + + | Address | [address] | | | [place] [address] | + + + | Home Phone [...] Team Providers + +------+ + | Care Railroad Track Repair Supervisor Name | Role | Phone | [...] Rd | | | | | | [place], [place] | | | | | | [address] | | | +--------+ + + + [...]
--- OUTSIDE RECORDS SUMMARY | ~2019-11-17 | XMS | Encounter Summary ---
Demographics + + + | Address | [address] | | | [place] [address] | + + + | Home Phone [...] Team Providers + +------+ + | Care Gallery Or Museum Attendant Name | Role | Phone | [...] 05/28/ | Office | [facility] at [facility] | Lukasz Charles, | Major Depressive | | 2006 | Visit | [address] | PhD [address] | Disorder, Recurrent | | | | Mailcode: CH15P | [place], [place] | Episode, Moderate | | | | [facility] | [address] | ([facility]); LBP (Low Back | | | | and Healing, | [phone] | Pain); DJD | | | | | | (Degenerative Joint | | | | Floor [place], [place] | | Disease) of Knee; | | | | [address] | | Other Pain Disorders | | | | [phone] | | Related to | | | [...] she is having some acute illness. Diagnosis: Summit I: 1. (296.32) Major depressive disorder, recurrent, moderate. 2. (309.24) Adjustment disorder with anxiety. 3. 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 Summit II: Deferred Summit III: abdominal pain, migraine headache, low back pain. Summit IV: low finances Summit V: GAF 55-60 Plan: Return with next medical follow-up appointment. Check mood, knee surgery, relaxation, acti vity, distraction. Continue cognitive/behavioral therapy. Total time spent with patient was approximately 45 minutes. LUKASZ CHARLES [facility] [address] [facility], 4th [place] [address] documented in this encount er Plan of [...]
--- OUTSIDE RECORDS SUMMARY | ~2019-11-17 | XMS | Encounter Summary ---
Demographics + + + | Address | [address] | | | [place] [address] | + + + | Home Phone [...] Providers + +------+ + | Care Certified Nurse Midwife Name | Role | Phone | + [...] | Pain | Diagnoses | [place], | [place], | | | | Management | LBP (low | NIHARIKA Jean | Lukasz Rhodes, PhD | | | | | back pain) | [address] | [address] | | | | | DJD | [address] | Ave | | | | | (degenerativ | [place], [place] | [place] | | | | | e joint | [address] | [address] | | | | | disease) of | | Phone: | | | | | knee Knee | | [phone] | | | | | pain Major | | Fax: | | | | | depressive | | [phone] | | | | | disorder, | [...] + + | 06/21/ | Office | [facility] Center at [facility] | Lukasz Charles, | Major Depressive | | 2008 | Visit | [address] | PhD [address] | Disorder, Recurrent | | | | Mailcode: CH15P | [place], [place] | Episode, Mild (HCC); | | | | [facility] | [address] | LBP (Low Back | | | | and Healing, | [phone] | Pain); Migraine | | | | | | Headache | | | | Floor [place], [place] | | | | | | [address] | | | | | | [phone] | | | +--------+---------+ + + + [...] encounter Progress Notes Lukasz Charles, PhD - 06/21/2008 9:02 AM PSTPROGRESS NOTE: Belinda Meehan is a 47 y.o. female with head, abdominal, back, and leg pain. She report ed that she is healing well from her back surgery. She is walking better and has feeling in her leg. She reported much headache pain and she has been losing weight because of the nini sea from the headache. She is seeing a migraine specialist this week. She reported that [employer] has done some sewing and she found a lot of pleasure in it. We discussed distraction and the benefits of staying busy. Her mood has been generally stable but she has had some sleep disturbance. She is eager to resume physical therapy. Ms. Meehan has ongoing depression and frustration. She is not suicidal. She is strugglin g with daily headaches and poor sleep. She is optimistic about healing from surgery and she anticipates more benefit as she becomes more active. Diagnosis: Esmond I: 1. (296.31) Major depressive disorder, recurrent, mild. 2. (309.24) Adjustment disorder with anxiety. 3. 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 Esmond II: Deferred Esmond III: abdominal pain, migraine headache, low back pain. Esmond IV: low finances Esmond V: GAF 55-60 Plan: return with next medical follow-up appointment. Check mood, pain, surgical recovery , relaxation, activity, distraction, eating. Ask about headache specialist, physical therap y. Continue cognitive/behavioral therapy. Total time spent with patient was approximately 45 minutes. LUKASZ CHARLES [facility] [address] [facility], 4th [place] [address] documented in this en counter Plan of Treatment + + +--------+ + + | Name | Type | Priori | Associated Diagnoses | Order Schedule | | | | ty | | | + + +--------+ + + | [facility], | Procedures | Routin | Major Depressive | Ordered: 06/21/2008 | | OFFICE (45-50) | | e [...]
--- OUTSIDE RECORDS SUMMARY | ~2019-11-17 | XMS | Encounter Summary ---
Demographics + + + | Address | [address] | | | [place] [address] | + + + | Home Phone [...] Team Providers + +------+ + | Care Goggles Assembler Name | Role | Phone | [...] as of this encounter Progress Notes Interface, Taper Machine In - 02/19/2005 5:04 AM PDT [id number] [facility] Date: 01/17/2005 Clinic: General [...] with Dr. Dwaine Larson. She has a ubh-rczn-ywmmd lesion at the distal aspect of her [...] closure. Devin German M.D. Dwaine Larson M.D. [facility] / [id number] / [id number] / [id number] / [id number] Electronically signed by Dwaine Larson 02-18-2005 09:15:31 AM documented i n this encounter Plan of Treatment Not on filedocumented as of this encounter Visit Diagnoses Not on filedocumented in this encounter
--- OUTSIDE RECORDS SUMMARY | ~2019-11-17 | XMS | Encounter Summary ---
Demographics + + + | Address | [address] | | | [place] [address] | + + + | Home Phone [...] Team Providers + +------+ + | Care Steel Construction Worker Name | Role | Phone | [...]
--- OUTSIDE RECORDS SUMMARY | ~2019-11-17 | XMS | Encounter Summary ---
Demographics + + + | Address | [address] | | | [place] [address] | + + + | Home Phone [...] Team Providers + +------+ + | Care Judicial Assistant Name | Role | Phone | [...] Rd | | | | | | [place], [place] | | | | | | [address] | | | +--------+ + + + [...]
--- OUTSIDE RECORDS SUMMARY | ~2019-11-17 | XMS | Encounter Summary ---
Demographics + + + | Address | [address] | | | [place] [address] | + + + | Home Phone [...] Providers + +------+ + | Care Health Systems Analyst Name | Role | Phone | [...] Rd | | | | | | [place], [place] | | | | | | [address] | | | +--------+ + + + [...]
--- OUTSIDE RECORDS SUMMARY | ~2019-11-17 | XMS | Encounter Summary ---
Demographics + + + | Address | [address] | | | [place] [address] | + + + | Home Phone [...] Providers + +------+ + | Care Assistant Scientist Name | Role | Phone | [...] + + | 08/14/ | Office | [facility] | Alanis, | Situational insomnia | | 2020 | Visit | MEDICINE [address] | MD Petrona | (Primary Dx); | | | | [facility] | [address] [place] [address] | Situational | | | | [place] [address] | [place] [address] | depression | | | | [phone] | [phone] | | | | | | | [...] Total Score 10 (08/15/19934) (Printable questionnaires in Malian ) Interpretation of Total Score: 1-4 = [...] COPD (chronic obstructive pulmonary disease) ([facility]) Depression Diarrhea Dumping syndrome Fall at [...] with myelopathy, lumbar region Stroke ([facility]) Syncope Tremor Type II or unspecified [...] Procedure: COLONOSCOPY; Surgeon: Luther Brito MD; Location: [facility] DILATION AND CURETTAGE OF UTERUS ELBOW SURGERY FINGER TRIGGER RELEASE 2003 FINGER TRIGGER RELEASE 2010 GASTRIC BYPASS SURGERY 2004 HYSTERECTOMY 05/14/1980 JOINT REPLACEMENT Bilateral 2006 2007 KNEE ARTHROSCOPY 2005 LAPAROSCOPY 01/27/2015 LAPAROTOMY 2008 ROTATOR CUFF REPAIR 2005 SPINE SURGERY TONSILLECTOMY 1964 UPPER GASTROINTESTINAL ENDOSCOPY N/A 12/18/2017 Procedure: EGD; Surgeon: Luther Brito MD; Location: [facility] CURRENT MEDICATIONS Current Outpatient [...] ours as needed for Pain. Incontinence Supplies [facility] As directed 100 each 11 levothyroxine (SYNTHROID) [...] Allergen Reactions Ensure Diarrhea Food Diarrhea Lactose Nokntvsmna-Pjq-Yaeh-Codeine Other (See Comments) Balance problems Codeine Sulfate Nausea Only Food Allergy Formula Diarrhea Ensure Levofloxacin Hives, Itching and Rash Butalbital Ropinirole Amitriptyline Hcl Other (See Comments) Confused and questionable for seizures Gbcszqryvu-Opvj-Gnjvarao Rash duplicate Nqnkgrhnmq-Lwzf-Wnkfzblg Hives and Rash Cephalexin Hives Ciprofloxacin Hives and Rash Clarithromycin Hives and Rash Clindamycin Hcl Hives and Rash Doxycycline Rash Duloxetine Other (See Comments) Migraines and nausea Ketorolac Hives Levofloxacin Hives and Rash Morphine Swelling Penicillins Hives and Rash Ropinirole Hcl Hives Sulfamethoxazole-Trimethoprim Hives and Rash Tramadol Hcl Nausea Only FOLLOW-UP No follow-ups on file. Notes: 1. Parts of this documentwere created using [employer] speech recognition software. As a resu lt, [...] | | | | | [place] [address] | | | | | | [phone] | | | | | | | | +--------+---------+ + + + | 12/20/ | Office | Otolaryngology | Ulysses Genao MD | | | 2019 | Visit | | [address] | | | | | | [address] [place], | | | | | | [place] [address] | | | | | | [phone] | | | | | | | | +--------+---------+ + + + | 02/15/ | Office | Internal Medicine | Alanis, | | | 2019 | Visit | | MD Petrona | | | | | | [address] [place] | | | | | | [place] [address] | | | | | | [phone] | | | | | | | [...] | First dose on [facility] 10/15/17 at 1215 | | | | [...]
--- OUTSIDE RECORDS SUMMARY | ~2019-11-17 | XMS | Encounter Summary ---
Demographics + + + | Address | [address] | | | [place] [address] | + + + | Home Phone [...] Team Providers + +------+ + | Care Bath Attendant Name | Role | Phone | [...] Lab Results | | 2012 | | [place] [facility] [address] | SENIOR PROGRAM PLANNER [address] | | | | | Sara Kovacs | [facility] [address] | | | | | Mailcode: Center | [place], [place] | | | | | for Health and | [address] | | | | | [place] [address] | [phone] | | | | | [place], [place] | | | | | | [address] | | | | | | [phone] | | | +--------+ + + + [...]
--- OUTSIDE RECORDS SUMMARY | ~2019-11-17 | XMS | Encounter Summary ---
Demographics + + + | Address | [address] | | | [place] [address] | + + + | Home Phone [...] Team Providers + +------+ + | Care Packaging Specialist Name | Role | Phone | [...] | | unspecified | [place], [place] | [address] | | | | | laterality | [address] | Phone: | | | | | | Phone: | [phone] | | | | | | [phone] | Fax: | | | | | | Fax: | [phone] | | | | | | [phone] | | +--------+ + + + + [...] [place], | unspecified | | | | [place], [place] | [place] [address] | laterality (Primary | | | | [address] | [phone] | Dx) | | | | [phone] | | | +--------+ + + + [...] | | | | | [place], [place] [address] | | | | | | [phone] | | | | | | | | +--------+---------+ + + + | 12/20/ | Office | Otolaryngology | Ulysses Genao MD | | | 2019 | Visit | | [address] | | | | | | [address] [place], | | | | | | [place] [address] | | | | | | [phone] | | | | | | | | +--------+---------+ + + + | 02/15/ | Office | Internal Medicine | Alanis, | | | 2019 | Visit | | MD Petrona | | | | | | [address] [place] | | | | | | [place] [address] | | | | | | [phone] | | | | | | | | +--------+---------+ + + + + + +--------+ + + | Name | Type | Priori | Associated Diagnoses | Order Schedule | | | | ty | | | + + +--------+ + + | * [facility] | Outpatient | Routin | Benign paroxysmal [...]
--- OUTSIDE RECORDS SUMMARY | ~2019-11-17 | XMS | Encounter Summary ---
Demographics + + + | Address | [address] | | | [place] [address] | + + + | Home Phone [...] Providers + +------+ + | Care Database Engineer Name | Role | Phone | [...] | | | | Hemorrhoid | T, ANP | Bandar Stroud MD | | | | | Procedures | [place], [place] | [address] [facility] | | | | | CONSULT TO | [address] | [address] | | | | | SURGERY - | | Rd [place], | | | | | GENERAL | | [place] | | | | | | | [address] | | | | | | | Phone: | | | | | | | [phone] | | | | | | | Fax: | | | | | | | [phone] | +--------+--------+ + + + + Encounter Details +--------+ + + + + | Date | Type | Department | Care Team | Description | +--------+ + + + + | 08/31/ | Garment Turner | Digestive Health | Nuris Cardenas ANP | Hemorrhoid (Primary | | 2008 | | Center [address] | | Dx) | | | | [address] | | | | | | Mailcode: [id number] | | | | | | [facility] | | | | | | [place], [place] | | | | | | [address] | | | | | | [phone] | | | +--------+ + + + [...]
--- OUTSIDE RECORDS SUMMARY | ~2019-11-17 | XMS | Encounter Summary ---
Demographics + + + | Address | [address] | | | [place] [address] | + + + | Home Phone [...] Providers + +------+ + | Care Car Repairman Name | Role | Phone | + +------+ + | Pedrito Gutierrez MD | PCP | | + +------+ + Encounter Details +--------+ + + + + | Date | Type | Department | Care Team | Description | +--------+ + + + + | 01/14/ | Telephone | Digestive Health | Chris Padgett, | | | 2009 | | [place] [address] | [address] [facility] | | | | | Bethanie Mailcode: CH4S | [facility] | | | | | Center for Health | [place], [place] | | | | | and Healing, | [address] | | | | | [facility] | [phone] | | | | | Floor [place], [place] | | | | | | [address] | | | | | | [phone] | | | +--------+ + + + [...]
--- OUTSIDE RECORDS SUMMARY | ~2019-11-17 | XMS | Encounter Summary ---
Demographics + + + | Address | [address] | | | [place] [address] | + + + | Home Phone [...] Providers + +------+ + | Care Office Services Manager Name | Role | Phone | + +------+ + | Pedrito Gutierrez MD | PCP | | + +------+ + Encounter Details +--------+ + + + + | Date | Type | Department | Care Team | Description | +--------+ + + + + | 01/22/ | Orders Only | General Surgery | Chris Padgett, | Chronic Abdominal | | 2005 | | Bariatric [address] | [address] | Pain (Primary Dx) | | | | [address] | [address] | | | | | Mailcode: L223A | [place], [place] | | | | | Physician's Sharmila | [address] | | | | | [address] [place], [place] | [phone] | | | | | [address] | | | | | | [phone] | | | +--------+ + + + [...] | Routin | Chronic Abdominal | Ordered: 01/22/2006 | | VENIPUNCTURE | | e | Pain | | + +------+--------+ + + documented as of this encounter Procedures + +--------+ + + + | Procedure Name | Priori | Date/Time | Associated Diagnosis | Comments | | | ty | | | | + +--------+ + + + | VITAMIN | Routin | 01/22/2006 | Chronic Abdominal | Results for this | | D,1,25-DIHYDROXY, | e | 3:28 PM | Pain | procedure are in the | | SERUM | | PDT | | results section. | + +--------+ + + + documented in this encounter Results VITAMIN D, 125-DIHYDROXY (01/22/2006 [...] [facility] | [address] | [place], [place] | | | [facility] | | [address] | | + + + + + documented in this encounter Visit Diagnoses + + | Diagnosis | + + | Chronic abdominal pain - Primary Abdominal pain, unspecified site | + + documented in this encounter"
--- OUTSIDE RECORDS SUMMARY | ~2019-11-17 | XMS | Encounter Summary ---
Demographics + + + | Address | [address] | | | [place] [address] | + + + | Home Phone [...] Team Providers + +------+ + | Care Worship Director Name | Role | Phone | [...] | | | | Clinical Nutrition | [place], [place] | | | | | [address] | [address] | | | | | Loop Mailcode: [id number] | [phone] | | | | | Outpatient Clinic | | | | | | [facility] | | | | | | [place] [address] | | | | | | [phone] | | | +--------+ + + + [...] + + + + | [facility] | [address] | [place] [address] | | | LABORATORY | | | [...] + + + | [facility] | [address] | [place] [address] | | | LABORATORY | | | [...] + + + + | [facility] | [address] | [place] [address] | | | LABORATORY | | | | + + + + + documented in this encounter Visit Diagnoses Not on filedocumented in this encounter"
--- OUTSIDE RECORDS SUMMARY | ~2019-11-17 | XMS | Encounter Summary ---
Demographics + + + | Address | [address] | | | [place] [address] | + + + | Home Phone | | + + + | Preferred Language | Unknown | + + + | Marital Status | | + + + | Yazidism Affiliation | 1001 | + + + | Race | Unknown | + + + | Ethnic Group | Unknown | + + + Author + + + | Author | [facility] | | | and [place] | + + + | Organization | [facility] | | | [...] Providers + +------+ + | Care Tester Armature Or Fields Name | Role | Phone | + +------+ + | Petrona Thapa | PCP | | | MD | | | + +------+ + Encounter Details +--------+ + + + + | Date | Type | Department | Care Team | Description | +--------+ + + + + | 02/23/ | Hospital | [facility] | [place] | Right shoulder pain, | | 2018 | Encounter | [facility] | MD [address] | unspecified | | | | [address] [place] | [address] | chronicity | | | | [place] | [place] [address] | | | | | [address] | [phone] | | | | | [phone] | | | +--------+ + + + [...] | | | | | [place] [address] | | | | | | [phone] | | | | | | | | +--------+---------+ + + + | 12/20/ | Office | Otolaryngology | Ulysses Genao MD | | | 2019 | Visit | | [address] [place] | | | | | | [address] [place], | | | | | | [place] [address] | | | | | | [phone] | | | | | | | | +--------+---------+ + + + | 02/15/ | Office | Internal Medicine | Alanis, | | | 2019 | Visit | | MD Petrona | | | | | | [address] [place] | | | | | | [place] [address] | | | | | | [phone] | | | | | | | [...]
--- OUTSIDE RECORDS SUMMARY | ~2019-11-17 | XMS | Encounter Summary ---
Demographics + + + | Address | [address] | | | [place] [address] | + + + | Home Phone [...] Providers + +------+ + | Care Assembly Operator Name | Role | Phone | [...] as of this encounter Progress Notes Interface, Gravity Prospecting Observer In - 06/06/2005 2:05 AM [facility] [id number] [facility] Date: 05/29/2005 Clinic: Bariatric [...] a day. She has had workups in [place] including CT and upper GI with small-bowel followthrough which have reportedly been negative. She has some recent changes in her medications including addition of a calcium channel colby and diclofenac. She says her symptoms gets worse every time she takes pain medicine. She is currently taking oxycodone. Her primary doctor in [place] is Dr. Gutierrez. Physical Examination: Vital Signs: [...] will try to arrange for her in [place], so she does not have to come out here. We will call Dr. Gutierrez to try to arrange for this and followup her within 3 months. The patient was seen with Dr. Padgett. Karen Cisneros M.D. Chris aPdgett M.D. / SHARIF [id number] / [id number] / [id number] / [id number] Electronically signed by Chris Padgett 06-05-2005 05:29:09 PM documented i n this encounter Plan of Treatment Not on filedocumented as of this encounter Visit Diagnoses Not on filedocumented in this encounter"
--- OUTSIDE RECORDS SUMMARY | ~2019-11-17 | XMS | Encounter Summary ---
Demographics + + + | Address | [address] | | | [place] [address] | + + + | Home Phone [...] Team Providers + +------+ + | Care Hvac Tech Name | Role | Phone | + +------+ + | Petrona Thapa | PCP | | | MD | | | + +------+ + Encounter Details +--------+ + + + + | Date | Type | Department | Care Team | Description | +--------+ + + + + | 11/14/ | Hospital | [facility] | Alanis, | Toe pain, chronic, | | 2019 | Encounter | [facility] | MD Petrona | left | | | | [address] [place] | [address] [facility] | | | | | [place] | [place] [address] | | | | | [address] | [phone] | | | | | [phone] | | | +--------+ + + + [...] puffs into | 1 | 5 | // | | | mcg/puff inhaler | the lungs every 6 | Inhaler | | 20 | | | | hours as needed [...] | | Take 1 tablet by | 180 | 2 | 11/15/19 | | | diphenoxylate-atropi | mouth 6 times daily. 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 | | | | | + + + +---------+ + + | gabapentin | take 3 capsules by | 270 | 4 | 10/12/19 | | | (NEURONTIN) 300 mg | mouth three times a | capsule | | 20 | | | capsule | day | [...] tablet by | 90 | 2 | 07/19/19 | | | (SYNTHROID) 75 mcg | mouth every morning | tablet | | 20 | | | tablet | BEFORE BREAKFAST | | | | | + + + +---------+ + + | loperamide | take 4 capsules by | 180 | 2 | 09/05/19 | | | (IMODIUM) 2 mg | mouth every morning | capsule | | 20 | | | capsule | and 2 capsules by | | | | | | | mouth every evening | | | | | + + + +---------+ + + | meclizine | take 1 tablet by | 90 | 0 | 12/15/19 | | | (ANTIVERT) 25 mg | mouth three times a | tablet | | 19 | | | tablet | day if needed for | | | | | | | dizziness | | | | | + + + +---------+ + + | methocarbamol | take 1 tablet by | 60 | 3 | 11/24/19 | | | (ROBAXIN) 750 mg | mouth twice a day | tablet | | 19 | | | tablet | | | | | | + + + +---------+ + + | metoprolol | take 1/2 tablet by | 30 | 11 | 02/18/20 | | | tartrate (LOPRESSOR) | mouth [...] under | 1 mL | 4 | 02/16/20 | | | 0.4 mg/mL | the skin as needed | | | 19 | | | injectionIndications | for Apnea or | | | | | | : termite treater | Decreased | | | | | | prescription opiate | Responsiveness. | | | | | | use | | | | | | + + + +---------+ + + | nitroglycerin | Place 1 tablet under | 25 | 11 | 02/18/20 | | | (NITROSTAT) 0.4 mg | the tongue every 5 | tablet | | 19 | | | SL | minutes as needed | | | | | | tabletIndications: | for Chest pain. | | | | | | Chest pain, | | | | | | | unspecified type | | | | | | + + + +---------+ + + | omeprazole | take 1 capsule by | 60 | 11 | 04/26/20 | | | (PRILOSEC) 20 mg | mouth twice a day | capsule | | 19 | | | capsule | | | | | | + + + +---------+ + + | ondansetron | Take 1 tablet by | 270 | 2 | 02/12/20 | | | (ZOFRAN ODT) 4 mg [...] tablets by | 450 | 3 | 04/26/20 | | | (KLOR-CON M20) 20 | mouth every morning | tablet | | 19 | | | mEq ER tablet | and 2 every evening | | | | | | | with food | | | | | + + + +---------+ + + | SUMAtriptan | Take 1 tablet by | 12 | 5 | 03/21/20 | | | (IMITREX) 100 mg | mouth as needed for | tablet | | 19 | | | tabletIndications: | Migraine. Take 1 tab | | | | | | Migraine without | by mouth on on-set | | | | | | aura and without | of Migraine, may | | | | | | status migrainosus, | repeat in 2 hours if | | | | | | not intractable | needed. Max 2 tabs/ | | | | | | | 24 hours | | | | | + + + +---------+ + + | topiramate | take 2 tablets by | 228 | 5 | 04/04/20 | | | (TOPAMAX) 50 MG | mouth every 12 hours | tablet | | 19 | | | tablet | for MIGRAINE | | | | | | | PREVENTION | | | | | + + + +---------+ + + | torsemide | take 1 tablet by | 25 | 5 | 03/14/20 | | | (DEMADEX) 5 mg | mouth 5 TIMES A WEEK | tablet | | 19 | | | tablet | | | | | | + + + +---------+ + + | traZODone | Take 1 tablet by | 30 | 3 | 03/21/20 | | | (DESYREL) 50 mg | mouth nightly as | tablet | | 19 | | | tabletIndications: | needed for Insomnia. | | | | | | Primary insomnia, | | | | | | | Situational | | | | | | | depression | | | | | | + [...] tablet by | 180 | 2 | 06/14/20 | | | 80 mg tablet | mouth twice a day | tablet | | 19 | 0 | + + + +---------+ + + documented as of this encounter Plan of Treatment +--------+---------+ + + + | Date | Type | Specialty | Care Team | Description | +--------+---------+ + + + | 12/20/ | Office | Audiology | Elisabet Munson MS | | | 2019 | Visit | | [facility] [address] | | | | | | [address] [place] | | | | | | [place] [address] | | | | | | [phone] | | | | | | | | +--------+---------+ + + + | 12/20/ | Office | Otolaryngology | Ulysses Genao MD | | | 2019 | Visit | | [address] [place] | | | | | | [address] [place], | | | | | | [place] [address] | | | | | | [phone] | | | | | | | | +--------+---------+ + + + | 02/15/ | Office | Internal Medicine | Alanis, | | | 2019 | Visit | | MD Petrona | | | | | | [address] [place] | | | | | | [place] [address] | | | | | | [phone] | | | | | | | [...] + documented in this encounter Results XR Toe Left 2 [...] Diagnosis | + + | Toe pain, chronic, left | + + documented in this encounter"
--- OUTSIDE RECORDS SUMMARY | ~2019-11-17 | XMS | Encounter Summary ---
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 female [facility] [...] two weeks. 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 Fentanyl patch 25mcg/hr Q72hr 3. Locke 10/325 NTE 4 per day 4 Continue [...] weeks or sooner if needed. DELFINA MOLINA [facility] Pain Center Mail code CH 4P [facility] and [facility] [address] [facility] [address] Tasha Can - 11/11/2006 9:29 AM PDTCMA [...]
--- OUTSIDE RECORDS SUMMARY | ~2019-11-17 | XMS | Encounter Summary ---
Demographics + + + | Address | [address] | | | [place] [address] | + + + | Home Phone [...] Team Providers + +------+ + | Care Laser Engineer Name | Role | Phone | + +------+ + | Sulaiman Carrera MD | PCP | | + +------+ + Encounter Details +--------+ + + + + | Date | Type | Department | Care Team | Description | +--------+ + + + + | 02/23/ | Ancillary | Registration 3181 | Beto Meeks MD | | | 2006 | Registratio | [facility] | [address] | | | | n | [place] Mailcode: [id number] | [place], [place] | | | | | [place], [place] | [address] | | | | | [address] | [phone] | | | | | [phone] | | | +--------+ + + + [...] | + + + + + | [facility] | [address] | [place] [address] | | | LABORATORY | | | [...] [place] | | | | | | [address] | | | | | | [facility], [facility] [place], [place] | | | | | | [address] | | | | | | [phone]. | | | | | | Sincere [...] | + + + + + | [facility] | [address] | [place], [place] | | | [facility] | | [address] | | + + + + + documented in this encounter Visit Diagnoses Not on filedocumented in this encounter"
--- OUTSIDE RECORDS SUMMARY | ~2019-11-17 | XMS | Encounter Summary ---
Demographics + + + | Address | [address] | | | [place] [address] | + + + | Home Phone [...] Team Providers + +------+ + | Care Civil Division Commander Deputy Sheriff Name | Role | Phone | + [...] | at [place] [place] | [facility] | | | | | [address] | [place] [address] | | | | | [address] | | | | | | [place], 2nd floor | | | | | | [place], [place] | | | | | | [address] | | | | | | [phone] | | | +--------+ + + + [...]
--- OUTSIDE RECORDS SUMMARY | ~2019-11-17 | XMS | Encounter Summary ---
Demographics + + + | Address | [address] | | | [place] [address] | + + + | Home Phone | | + + + | Preferred Language | Unknown | + + + | Marital Status | | + + + | Uatsdin Affiliation | 1001 | + + + | Race | Unknown | + + + | Ethnic Group | Unknown | + + + Author + + + | Author | [facility] | | | and [place] | + + + | Organization | [facility] | | | [...] Team Providers + +------+ + | Care Fit Model Name | Role | Phone | + [...] + + | 09/01/ | Telephone | [facility] | Alanis, | Sinus Pain | | 2019 | | MEDICINE [address] [place] [address] | MD Petrona | | | | | [facility] | [address] [place] [address] | | | | | [place] [address] | [place] [address] | | | | | [phone] | [phone] | | | | | | | [...] | | | | | [place] [address] | | | | | | [phone] | | | | | | | | +--------+---------+ + + + | 12/20/ | Office | Otolaryngology | Ulysses Genao MD | | | 2020 | Visit | | [address] [place] | | | | | | [address] [place], | | | | | | [place] [address] | | | | | | [phone] | | | | | | | | +--------+---------+ + + + | 02/15/ | Office | Internal Medicine | Alanis, | | | 2019 | Visit | | MD [place]ron[place] | | | | | | [address] | | | | | | [place] [address] | | | | | | [phone] | | | | | | | | +--------+---------+ + + + documented as of this encounter Visit Diagnoses Not on filedocumented in this encounter"
--- OUTSIDE RECORDS SUMMARY | ~2019-11-17 | XMS | Encounter Summary ---
Demographics + + + | Address | [address] | | | [place] [address] | + + + | Home Phone [...] Providers + +------+ + | Care Commercial Intelligence Manager Name | Role | Phone | [...] + | 12/10/ | Office | [facility] | Alanis, | Elevated liver | | 2018 | Visit | MEDICINE [address] | MD Petron[place] | enzymes (Primary | | | | [address] [place] | [address] [facility] | Dx); Limb cramps; | | | | [place] [address] | [place] [address] | Physical | | | | [phone] | [phone] | deconditioning; | | | | | [...] Refill Abdominal Pain Spasms legs and hips [facility] Belinda Meehan is a 57 y.o. [...] is interested in doing physical therapy in [place], pool therapy has helped in the pas [...] apnea Spondylosis with myelopathy, lumbar region Stroke ([facility]) Syncope Tremor Type II or unspecified type [...] (See Comments) Confused and questionable for seizures Ghpzwyuwcs-Tniq-Gozataqt Cephalexin Hives Duloxetine Migraines and nausea Ketorolac Hives Morphine Swelling Ropinirole Hcl Hives Tramadol Hcl Nausea Only Gokcbqhlcx-Wspm-Infyfvpe Hives and Rash Ciprofloxacin Hives and Rash [...] Note: Parts of this documentwere created using [employer] (P) speech recognition software. As a r esult, [...] | | [facility] [address] | | | | | | [place] | | | | | | [place] [address] | | | | | | [phone] | | | | | | | | +--------+---------+ + + + | 12/20/ | Office | Otolaryngology | Ulysses Genao MD | | | 2019 | Visit | | [address] | | | | | | [address] [place], | | | | | | [place] [address] | | | | | | [phone] | | | | | | | | +--------+---------+ + + + | 02/15/ | Office | Internal Medicine | Alanis, | | | 2019 | Visit | | MD [place] | | | | | | [address] [place] | | | | | | [place], [place] [address] | | | | | | [phone] | | | | | | | [...] [address] | [place] | [phone] | | [facility] | | [address] | | | - LABORATORY | | [...] [address] | [place] | [phone] | | [facility] | | [address] | | | - LABORATORY | | [...] test | | | | | | ([id number]). | | | | + + + + + + + + | Specimen | + + | Blood | + + + + + | Narrative | Performed At | + + + | Performed at: [address] [place] [address], | REFERENCE LAB | | [place], [place] [address] Screen Operator: Bandar Gan MD, Phone: | [facility] | | [phone] | | + + + + + + + + | Performing | Address | City/State/Zipcode | Phone Number | | Organization | | | | + + + + + | REFERENCE LAB | [address] | [place], [place] | [phone] | | [facility] | [place] | [address] | | + + + + + [...]
--- OUTSIDE RECORDS SUMMARY | ~2019-11-17 | XMS | Encounter Summary ---
Demographics + + + | Address | [address] | | | [place] [address] | + + + | Home Phone [...] Team Providers + +------+ + | Care Rubber Thread Spooler Name | Role | Phone | + [...] + + | 02/18/ | Refill | [facility] | Alanis, | Results, Imaging | | 2017 | | MEDICINE [address] [place] [address] | MD [place] | | | | | [facility] | [address] [place] [address] | | | | | [place] [address] | [place] [address] | | | | | [phone] | [phone] | | | | | | | [...] | | | | | [place] [address] | | | | | | [phone] | | | | | | | | +--------+---------+ + + + | 12/20/ | Office | Otolaryngology | Ulysses Genao MD | | | 2019 | Visit | | [address] [place] | | | | | | [address] [place], | | | | | | [place] [address] | | | | | | [phone] | | | | | | | | +--------+---------+ + + + | 02/15/ | Office | Internal Medicine | Alanis, | | | 2019 | Visit | | MD [place] | | | | | | [address] [place] | | | | | | [place] [address] | | | | | | [phone] | | | | | | | | +--------+---------+ + + + documented as of this encounter Visit Diagnoses Not on filedocumented in this encounter"
--- OUTSIDE RECORDS SUMMARY | ~2019-11-17 | XMS | Encounter Summary ---
Demographics + + + | Address | [address] | | | [place] [address] | + + + | Home Phone [...] Providers + +------+ + | Care Varnish Melter Name | Role | Phone | + [...] Floor | | | | | | [place], [place] | | | | | | [address] | | | | | | [phone] | | | +--------+ + + + [...] No: | | | | | | [id number] Name: | | | | | | BELINDA MEEHAN | | | | | | Birthday: 1960 | | | | | | Sex: F | | | | | | Alias:Patient Location: | | | | | | [id number]: Outpatient | | | | | | ActiveOrdering | | | | | | Physician: JOSÉ MIGUEL | | | | | | MARYSOL MORENO SCAPULA | | | | | | COMPLETE completed on | | | | | | 01/01/2009 11:55 | | | | | | AMAccession # | | | | | | [id number]:LEFT | | | | | | SCAPULA [...]
--- OUTSIDE RECORDS SUMMARY | ~2019-11-17 | XMS | Encounter Summary ---
Demographics + + + | Address | [address] | | | [place] [address] | + + + | Home Phone [...] Team Providers + +------+ + | Care Non Destructive Testing Specialist Name | Role | Phone | [...] Description | +--------+--------+ + + + | 08/16/ | Refill | [facility] | Alanis, | Medication Refill | | 2019 | | MEDICINE [address] | MD [place] | | | | | [facility] | [address] [place] [address] | | | | | [place] [address] | [place] [address] | | | | | [phone] | [phone] | | | | | | | [...] Visit | | [facility] [address] | | | | | | [address] [place] | | | | | | [place] [address] | | | | | | [phone] | | | | | | | | +--------+---------+ + + + | 12/20/ | Office | Otolaryngology | Ulysses Genao MD | | | 2019 | Visit | | [address] | | | | | | [address] [place], | | | | | | [place] [address] | | | | | | [phone] | | | | | | | | +--------+---------+ + + + | 02/15/ | Office | Internal Medicine | Alanis, | | | 2019 | Visit | | MD [place] | | | | | | [address] [place] [address] [place] | | | | | | [place] [address] | | | | | | [phone] | | | | | | | | +--------+---------+ + + + documented as of this encounter Visit Diagnoses Not on filedocumented in this encounter"
--- OUTSIDE RECORDS SUMMARY | ~2019-11-17 | XMS | Encounter Summary ---
Demographics + + + | Address | [address] | | | [place] [address] | + + + | Home Phone [...] + +------+ + | Care Night Time Babysitter Name | Role | Phone | + [...] | | | | Clinical Nutrition | [place], [place] | | | | | [address] | [address] | | | | | Loop Mailcode: OPC5 | [phone] | | | | | Outpatient Clinic | | | | | | [facility], | | | | | | [place] [address] | | | | | | [phone] | | | +--------+ + + + [...]
--- OUTSIDE RECORDS SUMMARY | ~2019-11-17 | XMS | Encounter Summary ---
Demographics + + + | Address | [address] | | | [place] [address] | + + + | Home Phone | | + + + | Preferred Language | Unknown | + + + | Marital Status | | + + + | Yazdanism Affiliation | 1001 | + + + | Race | Unknown | + + + | Ethnic Group | Unknown | + + + Author + + + | Author | Located Within [facility] | | | and [place] | + + + | Organization | Located Within [facility] | | [...] Providers + +------+ + | Care Application Internship Name | Role | Phone | [...] | | shoulder | Sulaiman-Gily | [address] [place] | | | | | Tear of MD [address] | [place] | | | | | right | [address] | [address] Phone: | | | | | supraspinatu | [place], | [phone] | | | | | s tendon, | [place] | Fax: | | | | | initial | [address] | [phone] | | | | | encounter | Phone: | | | | | | | [phone] | | | | | | | Fax: | | | | | | | [phone] | | +--------+ + + + + [...] Acute pain | Emmy-Tajt | [address] | | | | | of right | i, | [place], | | | | | shoulder | [place] | [place] | | | | | Procedures | , [address] | [address] | | | | | MRI Shoulder | [address] | Phone: | | | | | Right wo | [place], | [phone] | | | | | Contrast | [place] | Fax: | | | | | | [address] | [phone] | | | | | | Phone: | | | | | | | [phone] | | | | | | | Fax: | | | | | | | [phone] | | +--------+--------+ + + + + [...] + + | 01/15/ | Office | [facility] INTER[facility] | Alanis, | Acute pain of right | | 2017 | Visit | MEDICINE [address] [place] [address] | MD [place] | shoulder (Primary | | | | [facility] | [address] [place] [address] | Dx); Chronic | | | | [place] [address] | [place] [address] | diarrhea; Fatty | | | | [phone] | [phone] | liver; S/P bariatric | | | [...] Maggie Montoya LPN at 08/2017 12:15 PM [place] Johnston MD - 01/15/2018 10:45 AM PDTFormatting [...] region Stroke ([facility]) Syncope Tremor Type II or unspecified type [...] Procedure: COLONOSCOPY; Surgeon: Luther Brito MD; Location: [facility] MEDICAL PROCEDURE UNIT DILATION AND CURETTAGE OF UTERUS ELBOW SURGERY FINGER TRIGGER RELEASE 2002 FINGER TRIGGER RELEASE 2009 GASTRIC BYPASS SURGERY 2004 HYSTERECTOMY 05/14/1980 JOINT REPLACEMENT Bilateral 2007,2008 KNEE ARTHROSCOPY 2005 LAPAROSCOPY 01/27/2015 LAPAROTOMY 2008 ROTATOR CUFF REPAIR 2005 SPINE SURGERY TONSILLECTOMY 1964 UPPER GASTROINTESTINAL ENDOSCOPY N/A 12/18/2017 Procedure: EGD; Surgeon: Luther Brito MD; Location: [facility] MEDICAL PROCEDURE UNIT CURRENT MEDICATIONS Current [...] Days Morelia Thapa MD 1,000 mcg at 12/10/17 1040 ALLERGIES Allergies Allergen Reactions Codeine Sulfate Nausea Only Levofloxacin Hives, Itching and Rash Amitriptyline Hcl Other (See Comments) Confused and questionable for seizures Zxlqjonapt-Yxeb-Cmqjygnh Hives and Rash Cephalexin Hives Ciprofloxacin Hives [...] Note: Parts of this documentwere created using [employer] speech recognition software. As a r [...] FRED[place]ICK | | | | | | [facility] [address] [facility] | | | | | | [place] [address] | | | | | | [phone] | | | | | | | | +--------+---------+ + + + | 12/20/ | Office | Otolaryngology | Ulysses Genao MD | | | 2019 | Visit | | [address] [place] | | | | | | [address] [place] | | | | | | [place] [address] | | | | | | [phone] | | | | | | | | +--------+---------+ + + + | 02/15/ | Office | Internal Medicine | EmmyAnjum, | | | 2019 | Visit | | MD [place] | | | | | | [address] | | | | | | [place] [address] | | | | | | [phone] | | | | | | | | +--------+---------+ + + + + + +--------+ + + | Name | Type | Priori | Associated Diagnoses | Order Schedule | | | | ty | | | + + +--------+ + + | * [facility] | Outpatient | Routin | Acute pain [...] | | | Dictated and Signed by: Roemo John MD | | Electronically signed: 02/17/2018 [...]
--- OUTSIDE RECORDS SUMMARY | ~2019-11-17 | XMS | Encounter Summary ---
Demographics + + + | Address | [address] | | | [place] [address] | + + + | Home Phone [...] Team Providers + +------+ + | Care Desktop Administrator Name | Role | Phone | [...] + + | 06/30/ | Refill | [facility] | Alanis, | Medication Refill | | 2017 | | MEDICINE [address] [place] [address] | MD [place] | | | | | [facility] | [address] [place] [address] | | | | | [place] [address] | [place] [address] | | | | | [phone] | [phone] | | | | | | | [...] | | 2019 | Visit | | [facility] [address] | | | | | | [address] [place] | | | | | | [place] [address] | | | | | | [phone] | | | | | | | | +--------+---------+ + + + | 12/20/ | Office | Otolaryngology | Ulysses Genao MD | | | 2019 | Visit | | [address] [place] | | | | | | [address] [place], | | | | | | [place] [address] | | | | | | [phone] | | | | | | | | +--------+---------+ + + + | 02/15/ | Office | Internal Medicine | Alanis, | | | 2019 | Visit | | MD [place] | | | | | | [address] [place] | | | | | | [place] [address] | | | | | | [phone] | | | | | | | | +--------+---------+ + + + documented as of this encounter Visit Diagnoses + + | Diagnosis | + + | Bronchitis - Primary Bronchitis, not specified as acute or chronic | + + documented in this encounter"
--- OUTSIDE RECORDS SUMMARY | ~2019-11-17 | XMS | Encounter Summary ---
Demographics + + + | Address | [address] | | | [place] [address] | + + + | Home Phone [...] Team Providers + +------+ + | Care Staking Engineer Name | Role | Phone | + +------+ + | Sulaiman Carrera MD | PCP | | + +------+ + Encounter Details +--------+ + + + + | Date | Type | Department | Care Team | Description | +--------+ + + + + | 02/23/ | Ancillary | Registration 3181 | Beto Meeks MD | | | 2006 | Registratio | [facility] | [address] | | | | n | [place] Mailcode: RPB07 | [place], [place] | | | | | [place], [place] | [address] | | | | | [address] | [phone] | | | | | [phone] | | | +--------+ + + + [...] | + + + + + | [facility] | [address] | [place] [address] | | | LABORATORY | | | [...] [address] | | | | | | [facility], [facility] [place] | | | | | | [address] | | | | | | [phone] | | | | | | Sincere [...] [facility] | [address] | [place], [place] | | | [facility] | | [address] | | + + + + + documented in this encounter Visit Diagnoses Not on filedocumented in this encounter"
--- OUTSIDE RECORDS SUMMARY | ~2019-11-17 | XMS | Encounter Summary ---
Demographics + + + | Address | [address] | | | [place] [address] | + + + | Home Phone [...] Team Providers + +------+ + | Care Classroom Assistant Name | Role | Phone | [...] [address] | | | | | [facility] | [place], [place] | | | | | [address] | [address] | | | | | [address] | [phone] | | | | | [facility] | | | | | | Physician's | | | | | | Pavilion [place], | | | | | | [place] [address] | | | | | | [phone] | | | +--------+--------+ + + + [...]
--- OUTSIDE RECORDS SUMMARY | ~2019-11-17 | XMS | Encounter Summary ---
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 2. Continue with Newell 10/325 1 tablet as needed for activity [...] Belinda Meehan is a 46 y.o. female [facility] Comprehensive Pain Center Return Visit Chief [...] able to see Dr Gutierrez yet b ny does have and appointment next week to [...] ev eduardo 72 hours. 2. Continue with Newell 10/325 1 tablet as needed for activity related pain NTE 3 per day. 3. Continue with pain psychology and physical therapy. 4. Follow up in two weeks to review medication management 5. Keep neurology evaluation as able with insurance aurthorization.- migraine headache eval uation 6. PCP to assess LE edema/swelling. DELFINA MOLINA [facility] Mail code CH 4P [facility] and [address] [address] Ailyn Foster 09/10/19 07 12:20 [...]
--- OUTSIDE RECORDS SUMMARY | ~2019-11-17 | XMS | Encounter Summary ---
Demographics + + + | Address | [address] | | | [place] [address] | + + + | Home Phone [...] Team Providers + +------+ + | Care Section Plotter Operator Name | Role | Phone | [...] + + | 07/28/ | Telephone | [facility] INTERNAL | Alanis, | Other | | 2020 | | MEDICINE [address] [place] [address] | MD [place] | | | | | [facility] | [address] [place] [address] | | | | | [place] [address] | [place] [address] | | | | | [phone] | [phone] | | | | | | | [...] | Visit | | [facility] [address] | | | | | [address] [place] | | | | | | [place] [address] | | | | | | [phone] | | | | | | | | +--------+---------+ + + + | 12/20/ | Office | Otolaryngology | Ulysses Genao MD | | | 2019 | Visit | | [address] [place] | | | | | | [address] [place], | | | | | | [place] [address] | | | | | | [phone] | | | | | | | | +--------+---------+ + + + | 02/15/ | Office | Internal Medicine | Alanis, | | | 2019 | Visit | | MD [place] | | | | | | [address] [place] | | | | | | [place] [address] | | | | | | [phone] | | | | | | | | +--------+---------+ + + + documented as of this encounter Visit Diagnoses Not on filedocumented in this encounter"
--- OUTSIDE RECORDS SUMMARY | ~2019-11-17 | XMS | Encounter Summary ---
Demographics + + + | Address | [address] | | | [place] [address] | + + + | Home Phone [...] Team Providers + +------+ + | Care Shoe Parts Molder Name | Role | Phone | [...] as of this encounter Progress Notes Interface, Vapor Coater In - 02/15/2006 2:03 AM PDT [id number] GEOVANNI BELINDA Molly [id number] Clinic Date: 01/29/2006 Clinic: Endocrinology Belinda Meehan [...] her visits to the Emergency Department in [place], she apparently had elevated "liver enzyme levels" and her blood pressure was up to 160/98. She subsequently underwent diagnostic testing that apparently included CT imaging of her abdomen and upper GI endoscopy, abdominal ultrasound, and other testing; the results of which have apparently been normal. She started going to [employer] approximately 2 weeks ago which has increased her level of physical activity. She has only occasional headaches, due in part to ongoing treatment with propanolol. She apparently was referred by Dr. Padgett to see a smart grid engineer here at [facility] for further evaluation of severe recurrent abdominal [...] (her blood pressure is usually 112/[address]), and pulse 60 beats per minute and [...] evaluated recently at the Emergency Department in [place]. Her alkaline phosphatase level today is about [...] would benefit from being evaluated by a smart grid engineer. According to the patient, no gastroenterologists are available in [place]. She needs to petition her primary care provider and her insurance company to give the necessary authorization to allow her to be evaluated by a smart grid engineer. Plan: 1. Await results of serum [...] She needs to be seen by a smart grid engineer. 5. Return to see me again in 3 months. Beto Meeks M.D. PD / HS [id number] / [id number] / [id number] / cc: Pedrito Gutierrez M.D. [address] [place] [address] Chris Padgett M.D. Electronically signed by Beto Meeks 02-14-2006 02:02:55 AM documented i n this encounter Plan of Treatment Not on filedocumented as of this encounter Visit Diagnoses Not on filedocumented in this encounter
--- OUTSIDE RECORDS SUMMARY | ~2019-11-17 | XMS | Encounter Summary ---
Demographics + + + | Address | [address] | | | [place] [address] | + + + | Home Phone [...] Team Providers + +------+ + | Care Green Meat Grader Name | Role | Phone | + [...] | | | | | Procedures | [facility] [place] | [address] | | | | | CONSULT TO | [address] | for Health | | | | | BONE | Phone: | and Healing, | | | | | DENSITOMETRY | [phone] | Building [address] | | | | | | Fax: | [place], [place] | | | | | | [phone] | [address] | | | | | | | Phone: | | | | | | | [phone] | | | | | | | Fax: | | | | | | | [phone] | +--------+ + + + + + [...] | | | [facility] | [place], [place] | Bypass for Obesity | | | | and Healing, | [address] | | | | | [facility] | [phone] | | | | | Floor [place], [place] | | | | | | [address] | | | | | | [phone] | | | +--------+---------+ + + + [...] | | + +---------+ + + | [facility] DEPARTMENT OF | | | | [...]
--- OUTSIDE RECORDS SUMMARY | ~2019-11-17 | XMS | Encounter Summary ---
Demographics + + + | Address | [address] | | | [place] [address] | + + + | Home Phone [...] Providers + +------+ + | Care College Service Officer Name | Role | Phone | [...] Required | | | i, | [place] | | | | | osteoporosis | Sulaiman-Russell | [place], | | | | | without | , [address] | [place] [address] | | | | | current | [address] | Phone: | | | | | pathological | [place], | [phone] | | | | | fracture | [place] | Fax: | | | | | | [address] | [phone] | | | | | | Phone: | | | | | | | [phone] | | | | | | | Fax: | | | | | | | [phone] | | +--------+ + + + + + Reason for Visit + + + | Reason | Comments | + + + | Medication Orders | | + + + Encounter Details +--------+ + + + + | Date | Type | Department | Care Team | Description | +--------+ + + + + | 09/20/ | Telephone | [facility] INTERNAL | Alanis, | Medication Orders | | 2018 | | MEDICINE [address] [place] [address] | MD [place] | | | | | [facility] | [address] [place] [address] | | | | | [place] [address] | [place] [address] | | | | | [phone] | [phone] | | | | | | | [...] | | | | | [place] [address] | | | | | | [phone] | | | | | | | | +--------+---------+ + + + | 12/20/ | Office | Otolaryngology | Ulysses Genao MD | | | 2019 | Visit | | [address] [place] | | | | | | [address] [place], | | | | | | [place] [address] | | | | | | [phone] | | | | | | | | +--------+---------+ + + + | 02/15/ | Office | Internal Medicine | Alanis, | | | 2019 | Visit | | MD [place] | | | | | | [address] | | | | | | [place] [address] | | | | | | [phone] | | | | | | | [...]
--- OUTSIDE RECORDS SUMMARY | ~2019-11-17 | XMS | Encounter Summary ---
Demographics + + + | Address | [address] | | | [place] [address] | + + + | Home Phone [...] Providers + +------+ + | Care Java Consultant Name | Role | Phone | [...] | | | | [address] [facility]ician's | [place], [place] | | | | | [address] | [address] | | | | | [place], [place] | [phone] | | | | | [address] | | | | | | [phone] | | | +--------+ + + + [...] | [address] | [place] [address] | | | PATHOLOGY | [address] | | | + + + + + | [facility] DEPARTMENT OF | [address] | [place] [address] | | | PATHOLOGY | [address] [...] + + + + | [facility] | [address] | [place] [address] | | | PATHOLOGY | [address] | | | + + + + + | [facility] | [address] | [place] [address] | | | PATHOLOGY | [address] | | | + + + + + documented in this encounter Visit Diagnoses Not on filedocumented in this encounter"
--- OUTSIDE RECORDS SUMMARY | ~2019-11-17 | XMS | Encounter Summary ---
Demographics + + + | Address | [address] | | | [place] [address] | + + + | Home Phone [...] Providers + +------+ + | Care Heel Scourer Name | Role | Phone | + [...] | | | | | (degenerativ | [place], [place] | [place] | | | | | e joint | [address] | [address] | | | | | disease) of | | Phone: | | | | | knee Knee | | [phone] | | | | | pain Major | | Fax: | | | | | depressive | | [phone] | | | | | disorder, | [...] + + + + | 04/20/ | Counselor At Law | [facility] Comprehensive | Miranda Lambert, | LBP (Low Back Pain); | | 2006 | | Pain Center at | ANP | DJD (Degenerative | | | | [facility] | | Joint Disease) of | | | | [address] | | Knee; Bilateral Knee | | | | Mailcode: CH15P | | Pain; Major | | | | [facility] | | Depressive Disorder, | | | | and Healing, | | Recurrent Episode, | | | | Building | | Moderate ([facility]); | | | | Floor [place], [place] | | Adjustment Disorder | | | | [address] | | with Anxiety; | | | | [phone] | | Spondylosis with | | | [...]
--- OUTSIDE RECORDS SUMMARY | ~2019-11-17 | XMS | Encounter Summary ---
Demographics + + + | Address | [address] | | | [place] [address] | + + + | Home Phone [...] Providers + +------+ + | Care President Finance Company Name | Role | Phone | [...] | | Osteoporosis | i, | [address] | | | | | , | [place] | [place], | | | | | unspecified | , MD [address] | [place] [address] | | | | | osteoporosis | [address] | Phone: | | | | | type, | [place], | [phone] | | | | | unspecified | [place] | Fax: | | | | | pathological | [address] | [phone] | | | | | fracture | Phone: | | | | | | presence | [phone] | | | | | | Procedures | Fax: | | | | | | [place] | [phone] | | | | | | ZOLEDRONIC | | | | | | | ACID 1MG | | | +--------+ + + + + + Encounter Details +--------+ + + + + | Date | Type | Department | Care Team | Description | +--------+ + + + + | 08/18/ | Hospital | [facility] | Alanis, | Osteopenia, | | 2018 | Encounter | MED CTR OP INFUSION | MD [place] | unspecified location | | | | [address] | [address] [facility] | | | | | [place] | [place] [address] | | | | | [address] | [phone] | | | | | [phone] | | | +--------+ + + + [...] by: Roya Voss RN 08/18/2017 12:25 Nikita Ortiz, PharmD - 08/18/2017 11:[address] Booth office and got verbal report of what pts most r ecent Scr was from her lab draw at [facility]. Marlyn Anna Marie reports it was 0.81 mg/dL. This would [...] | | | | | [place] [address] | | | | | | [phone] | | | | | | | | +--------+---------+ + + + | 12/20/ | Office | Otolaryngology | Ulysses Genao MD | | | 2019 | Visit | | [address] | | | | | | [address] [place], | | | | | | [place] [address] | | | | | | [phone] | | | | | | | | +--------+---------+ + + + | 02/15/ | Office | Internal Medicine | Alanis, | | | 2019 | Visit | | MD [place] | | | | | | [address] [place] | | | | | | [place] [address] | | | | | | [phone] | | | | | | | [...]
--- OUTSIDE RECORDS SUMMARY | ~2019-11-17 | XMS | Encounter Summary ---
Demographics + + + | Address | [address] | | | [place] [address] | + + + | Home Phone [...] Providers + +------+ + | Care Rn Progressive Care Name | Role | Phone | [...] | ANP | | | | | [facility] | | | | | | [address] | | | | | | Mailcode: CH15P | | | | | | [place] for [facility] | | | | | | and Healing, | | | | | | Building | | | | | | Floor [place], [place] | | | | | | [address] | | | | | | [phone] | | | +--------+ + + + [...]
--- OUTSIDE RECORDS SUMMARY | ~2019-11-17 | XMS | Encounter Summary ---
Demographics + + + | Address | [address] | | | [place] [address] | + + + | Home Phone [...] Providers + +------+ + | Care Production Administrative Assistant Name | Role | Phone | [...]
--- OUTSIDE RECORDS SUMMARY | ~2019-11-17 | XMS | Encounter Summary ---
Demographics + + + | Address | [address] | | | [place] [address] | + + + | Home Phone [...] Providers + +------+ + | Care Bottom Presser Name | Role | Phone | + +------+ + PCP | Unavailable | + +------+ + Encounter Details +--------+ + + + + | Date | Type | Department | Care Team | Description | +--------+ + + + + | 01/02/ | Telephone | [facility] | Kenisha Melton, | | | 2005 | | [place] [address] | [facility] [address] | | | | | [address] | [address] | | | | | Mailcode: [id number] | [place], [place] | | | | | [facility] | [address] | | | | | [place], [place] | [phone] | | | | | [address] | | | | | | [phone] | | | +--------+ + + + [...]
--- OUTSIDE RECORDS SUMMARY | ~2019-11-17 | XMS | Encounter Summary ---
Demographics + + + | Address | [address] | | | [place] [address] | + + + | Home Phone [...] Providers + +------+ + | Care Solar Sales Estimator Name | Role | Phone | + +------+ + | Pedrito Gutierrez MD | PCP | | + +------+ + Encounter Details +--------+---------+ + + + | Date | Type | Department | Care Team | Description | +--------+---------+ + + + | 11/24/ | Office | Comprehensive Pain | Nathalia Arora | Left Knee Pain; | | 2006 | Visit | [facility] | [address] | Spondylosis with | | | | [address] | Clementina Winkler [place], | Myelopathy, Lumbar | | | | Mychal Kovacs Mailcode: | [place] [address] | Region; Herniated | | | | [facility] [place] for | | Lumbar | | | | Health and Healing, | | Intervertebral Disc | | | | | | L4-5; Fibromyalgia | | | | Floor [employer], [place] | | syndrome 729.1 | | | | [address] | | | | | | [phone] | | | +--------+---------+ + + + [...] encounter Progress Notes Delfina Molina - 12/02/2006 12:39 PM PDTPhysical Therapy Medicare Authorization/Review Antonio more Note Date: December 02, 2006 Patient: Belinda J Shefali, [id number], 1960 I agree with the proposed Physical Therapy Treatment Plan. Provider: DELFINA MOLINA ANP Nathalia Garrett - 007 11:16 AM PDT Physical Therapy Medicare Progress Note Date: 11/27/2006 Belinda Barnes Shefali [id number]. 1960 Start of Care: 11/24/2006 Referring Provider: Delfina Molina Primary Diagnosis: Encounter Diagnoses Code Name Primary? 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 Objective: Patient returned today for physical therapy assessment (short eval) of knees and lowback: Diagnostic test on 10/05/2006: Radiologist 1: BONNIE POZO M.D.-Radiologist 2: MARINA [...] the free margin and undersurface of the bonding equipment operator horn of the medial meniscus suspicious for [...] medial and patellofemoral compartments with marginal spurring. Active lumbosacral physiologicals: Sagital flexion 50% of normal with focal pulling/tightne ss Right and Left Lateral flexion 80% of normal with contralateral pain Right and Left Rotation reproduced right LE referred symptoms Special Tests: Fabere negative bilateral; active SLR testing in sitting: right negative; l eft reproduced focal knee joint symptoms and distal foot symptoms, ie tingling. Knee Tests: Normal AROM bilateral knee joints; negative for ligamentous involvement left k nee; positive for meniscal involvement left knee; right knee asymptomatic. Motor Power: Per manual muscle testing: Weakness of bilateral hip abductors and TFL, L>R; 4/5 weakness of hip extensors, 4/5. Red Flag questions: Positive cough/sneeze Gait: 4 point gait using bilateral lofstrand crutches Patient's goals: chcf: Ambulation with single based cane Treatment: Patient was instructed in quadriceps isometrics; quad isometrics with supine hi p ABD/ADD, emphasizing stabilization of core; and isometric hip ADD which she will follow th sierra with at home on a twice daily basis. Discussed with patient that her most optimal karla atment option is aquatic based therapy for which a home regimen can be developed. Patient d oes have this available on a local basis. Assessment: Patient presented with chronic myofascial lowback symptoms; left knee degenerat gerda changes and medial meniscal tear; left quadriceps weakness and significant decreased str ength of core and hip stabilizers. Short term goals are to increased strength and endurance . senior care goals: Improve gait so patient can ambulate with single based cane. Plan: Patient will return for f/u visit in 2 weeks and at that time will progress in core, hip, and knee strengthening regime. Treatment began: 1100 Treatment ended: 1200 Nathalia Arora, Physical Therapist License #[id number] documented in this encoun ter Plan of Treatment + + +--------+ + + | Name | Type | Priori | Associated Diagnoses | Order Schedule | | | | ty | | | + + +--------+ + + | IN PHYS THERAPY | Procedures | Routin | Left Knee Pain | Ordered: 11/24/2006 | | RE-EVALUATION | | e | Spondylosis with | [...] joint, lower leg | + + | Spondylosis with myelopathy, lumbar region | + + | Herniated Lumbar Intervertebral Disc L4-5 Displacement of lumbar intervertebral disc | | without myelopathy | + + | Fibromyalgia syndrome 729.1 Mylagia and myositis, unspecified | + + documented in this encounter"
--- OUTSIDE RECORDS SUMMARY | ~2019-11-17 | XMS | Encounter Summary ---
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 Her IGF-1 was low [...] 3 months. Caitlin Rivera M.S., F.N.P. / [id number] / [id number] / [id number] / cc: Pedrito Gutierrez M.D. [address] [facility] [place] [address] documented i n this encounter Plan of Treatment Not on filedocumented as of this encounter Visit Diagnoses Not on filedocumented in this encounter"
--- OUTSIDE RECORDS SUMMARY | ~2019-11-17 | XMS | Encounter Summary ---
Demographics + + + | Address | [address] | | | [place] [address] | + + + | Home Phone [...] Team Providers + +------+ + | Care Carbonator Name | Role | Phone | + +------+ + | Pedrito Gutierrez MD | PCP | | + +------+ + Encounter Details +--------+---------+ + + + | Date | Type | Department | Care Team | Description | +--------+---------+ + + + | 08/12/ | Office | Comprehensive Pain | Nathalia Arora | Spondylosis with | | 2006 | Visit | [facility] | [address] | Myelopathy, Lumbar | | | | [address] | Clementina Winkler [place], | Region; Neck Pain; | | | | Mychal [place] Mailcode: | [place] [address] | Herniated Lumbar | | | | [facility] [place] for | | Intervertebral Disc | | | | Health and Healing, | | L4-5; Fibromyalgia | | | | | | syndrome 729.1 | | | | Floor [place], [place] | | | | | | [address] | | | | | | [phone] | | | +--------+---------+ + + + [...] encounter Progress Notes Delfina Molina - 08/12/2006 4:13 PM PSTPhysical Therapy Medicare Authorization/Review Antonio more Note Date: August 12, 2006 Patient: Belinda Molly Meehan, [id number], 1960 I agree with the proposed Physical Therapy Treatment Plan. Provider: DELFINA MOLINA ANP Nathalia Keyes - 007 12:04 PM PST Physical Therapy Medicare Progress Note Date: 08/12/2006 Belinda Meehan [id number]. 1960 Start of Care: 06/23/2006 Referring Provider: Delfina Molina Primary Diagnosis: Encounter Diagnoses Code Name Primary? 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 721.42 Spondylosis with Myelopathy, Lumbar Region 723.1B Neck Pain 722.10H Herniated Lumbar Intervertebral Disc L4-5 729.1 Fibromyalgia syndrome 729.1 Date of Onset: 05/29/2006 Insurance: Medicare Number of used/authorized visits: 10/17 Medicare certification from: 07/16/2006 through 08/12/2006 Subjective: Reported onset of migraine headache at 2:30 am today, feeling nausea, pain lev el head/neck 10/10; lowback 410. Objective: Patient was unable to perform active cervical rotation or chin tucks secondary t o nausea and dizziness; any amount of pressure to right cervical structures provocative. Nguyễn de's treatment was limited today secondary to severe headache, directed treatment at lowb ack dysfunction. In supine hook lying position patient performed isometric lower abdominal contractions with posterior pelvic tilts, emphasized normal breathing pattern with this. Noted tightness of lowback, ie left quadratus, and intiated supine active stretch alternating sides. Patient w ill add this particular stretch to her lowback regime at home. 15 minutes was spent on ther apeutic activity, 15 minutes was spent on therapeutic exercise today. Patient has been referred to neurology regarding her migraines. Assessment: Functionally, patient has not had any falls since she is using gait devices con sistently. Patient can sit X 60 minutes if she has good lumbosacral support, pain level <5/ 10. Plan: Patient has 4 more visits authorized, every 2 weeks through the end of September, concurr ently with psychology. Will focus treatment on progressive core strengthening, isolated str etches for cervical region as tolerated, lowback, hips, and lower extremities. Treatment began: 1099 Treatment ended: 1129 Nathalia Arora, Physical Therapist License number [id number] documented in this encoun ter Plan of Treatment + + +--------+ + + | Name | Type | Priori | Associated Diagnoses | Order Schedule | | | | ty | | | + + +--------+ + + | CT THERAPEUTIC | Procedures | Routin | Spondylosis with | Ordered: 08/12/2006 | | EXERCISES | | e | Myelopathy, Lumbar | | | | | | Region Neck Pain | | | | | | Herniated Lumbar | | | | | | Intervertebral Disc | | | | | | L4-5 Fibromyalgia | | | | | | syndrome 729.1 | | + + +--------+ + + | CT THERAPEUTIC | Procedures | Routin | Spondylosis with | Ordered: 08/12/2006 | | ACTIVITIES | | e | Myelopathy, Lumbar | | | | | | Region Neck Pain | | | | | [...]
--- OUTSIDE RECORDS SUMMARY | ~2019-11-17 | XMS | Encounter Summary ---
Demographics + + + | Address | [address] | | | [place] [address] | + + + | Home Phone [...] Team Providers + +------+ + | Care Refrigeration Tech Name | Role | Phone | [...] as of this encounter Progress Notes Interface, Seal Extrusion Operator In - 06/06/2005 2:05 AM [facility] [id number] [facility] Date: 05/29/2005 Clinic: Bariatric [...] a day. She has had workups in [place] including CT and upper GI with small-bowel followthrough which have reportedly been negative. She has some recent changes in her medications including addition of a calcium channel colby and diclofenac. She says her symptoms gets worse every time she takes pain medicine. She is currently taking oxycodone. Her primary doctor in [place] is Dr. Gutierrez. Physical Examination: Vital Signs: [...] will try to arrange for her in [place], so she does not have to come out here. We will call Dr. Gutierrez to try to arrange for this and followup her within 3 months. The patient was seen with Dr. Padgett. Karen Cisneros M.D. Chris Padgett M.D. / SHARIF [id number] / [id number] / [id number] / [id number] Electronically signed by Chris Padgett 06-05-2005 05:29:09 PM documented i n this encounter Plan of Treatment Not on filedocumented as of this encounter Visit Diagnoses Not on filedocumented in this encounter"
--- OUTSIDE RECORDS SUMMARY | ~2019-11-17 | XMS | Encounter Summary ---
Demographics + + + | Address | [address] | | | [place] [address] | + + + | Home Phone [...] Team Providers + +------+ + | Care Uptwist Spinner Name | Role | Phone | + [...] 11/11/ | Office | [facility] | Lukasz Charles, | Major Depressive | | 2006 | Visit | [address] | PhD [address] | Disorder, Recurrent | | | | Mailcode: CH15P | [place], [place] | Episode, Moderate | | | | Center for Health | [address] | ([facility]); Left Knee | | | | and Healing, | [phone] | Pain; Neck Pain; | | | | Building | | Spondylosis with | | | | Floor [place], [place] | | Myelopathy, Lumbar | | | | [address] | | Region; Chronic | | | | [phone] | | Abdominal Pain; | | | [...] has using good self-care skil ls. Diagnosis: [place] I: 1. (296.32) Major depressive disorder, recurrent, moderate. 2. (309.24) Adjustment disorder with anxiety. 3. 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 [place] II: Deferred [place] III: abdominal pain, migraine headache, low back pain. [place] IV: low finances [place] V: GAF 55-60 Plan: Return in 2 weeks. Check niece's visit, pacing, relaxation, activity, distraction. Contin ue cognitive/behavioral therapy. Total time spent with patient was approximately 45 minutes. LUKASZ CHARLES PHD [facility] [address] [facility], [address] [place] [address] documented in this encount er Plan of [...] | | | | | ([facility]) Left Knee | | | [...]
--- OUTSIDE RECORDS SUMMARY | ~2019-11-17 | XMS | Encounter Summary ---
Demographics + + + | Address | [address] | | | [place] [address] | + + + | Home Phone [...] Team Providers + +------+ + | Care Call Or Contact Centre Manager Name | Role | Phone | [...] + | 04/08/ | Telephone | [facility] Comprehensive | Rosi Antonio, | | | 2012 | | Pain Center at | ANP | | | | | [facility] | | | | | | [address] | | | | | | Mailcode: CH15P | | | | | | [facility] | | | | | | and Healing, | | | | | | | | | | | | Floor [place], [place] | | | | | | [address] | | | | | | [phone] | | | +--------+ + + + [...]
--- OUTSIDE RECORDS SUMMARY | ~2019-11-17 | XMS | Encounter Summary ---
Demographics + + + | Address | [address] | | | [place] [address] | + + + | Home Phone [...] | | | [facility] | [place], [place] | and counseling; | | | | [address] | [address] | [place] | | | | [address] | [phone] | | | | | [facility] | | | | | | Physician's | | | | | | [place], | | | | | | [place] [address] | | | | | | [phone] | | | +--------+ + + + [...]
--- OUTSIDE RECORDS SUMMARY | ~2019-11-17 | XMS | Encounter Summary ---
Demographics + + + | Address | [address] | | | [place] [address] | + + + | Home Phone [...] | + + +---------+ + | Marco Antnoio Wells | ECON | Unknown | | + + +---------+ + Care Team Providers + +------+ + | Care Homicide Squad Commanding Officer Name | Role | Phone | [...] | +--------+ + + + + | 08/17/ | Telephone | [facility] | Alanis, | Other | | 2020 | | MEDICINE [address] [place] [address] | MD Petrona | | | | | [facility] | [address] [place] [address] | | | | | [place] [address] | [place] [address] | | | | | [phone] | [phone] | | | | | | | [...] | | | | | [place] [address] | | | | | | [phone] | | | | | | | | +--------+---------+ + + + | 12/20/ | Office | Otolaryngology | Ulysses Genao MD | | | 2019 | Visit | | [address] [place] | | | | | | [address] [place], | | | | | | [place] [address] | | | | | | [phone] | | | | | | | | +--------+---------+ + + + | 02/15/ | Office | Internal Medicine | Alanis, | | | 2019 | Visit | | MD Petrona | | | | | | [address] [place] | | | | | | [place] [address] | | | | | | [phone] | | | | | | | | +--------+---------+ + + + documented as of this encounter Visit Diagnoses Not on filedocumented in this encounter"
--- OUTSIDE RECORDS SUMMARY | ~2019-11-17 | XMS | Encounter Summary ---
Demographics + + + | Address | [address] | | | [place] [address] | + + + | Home Phone [...] Providers + +------+ + | Care Hydraulic Governor Assembler Name | Role | Phone | [...] + + | / | Office | [facility] Comprehensive | Delfina Molina, | LBP (Low Back Pain); | | 2007 | Visit | Pain Center at | ANP | Spondylosis with | | | | [facility] | | Myelopathy, Lumbar | | | | [address] | | Region; Herniated | | | | Mailcode: CH15P | | Lumbar | | | | [place] for [facility] | | Intervertebral Disc | | | | and Healing, | | L4-5; Fibromyalgia | | | | Building | | syndrome 729.1; | | | | Floor [place], [place] | | Bilateral Knee Pain; | | | | [address] | | Arthroplasty of the | | | | [phone] | | Left Knee; DJD | | [...] Belinda Meehan is a 47 y.o. female [facility] Comprehensive Pain Center Return Visit [...] drawing has be completed, which I reviewed. SHUTTLE HAND Brief Pain Inventory: Right Now: 9 Least [...] Physical therapy: Two days per week in [place] knees and both legs, shoulders and back [...] social history. Pending 08/30/[address] DR Cadet in [facility]: right knee arthroplasty. Urology evaluation for [...] Collection Time Resulting Agency 05/25/2007 4:06 PM [facility] DEPARTMENT OF RADIOLOGY Component Results MR [...] with any concerns or questions. DELFINA MOLINA [facility] Mail code CH 4P [facility] [address] [facility] [address] Ailyn Bello 08/13/19 08 8:52 [...]
--- OUTSIDE RECORDS SUMMARY | ~2019-11-17 | XMS | Encounter Summary ---
Demographics + + + | Address | [address] | | | [place] [address] | + + + | Home Phone [...] Team Providers + +------+ + | Care Grader Green Meat Name | Role | Phone | + [...] 2007 | Only | [address] | [phone] | | | | | Rd Mailcode: RPB07 | | | | | | [place], [place] | | | | | | [address] | | | | | | [phone] | | | +--------+ + + + [...] | [facility] DEPARTMENT OF | [facility] | [place] [address] | | | PATHOLOGY | [address] | | | + + + + + | [place] DEPARTMENT OF | [facility] | [place] [address] | | | PATHOLOGY | [address] | | | + + + + + documented in this encounter Visit Diagnoses Not on filedocumented in this encounter"
--- OUTSIDE RECORDS SUMMARY | ~2019-11-17 | XMS | Encounter Summary ---
Demographics + + + | Address | [address] | | | [place] [address] | + + + | Home Phone [...] Providers + +------+ + | Care Furnace Tender Name | Role | Phone | [...]
--- OUTSIDE RECORDS SUMMARY | ~2019-11-17 | XMS | Encounter Summary ---
Demographics + + + | Address | [address] | | | [place] [address] | + + + | Home Phone [...] + +------+ + | Care Curb Setter Helper Name | Role | Phone | + +------+ + | Pedrito Gutierrez MD | PCP | | + +------+ + Encounter Details +--------+ + + + + | Date | Type | Department | Care Team | Description | +--------+ + + + + | 07/30/ | Office | [facility] [address] | Clinic, | Progress Note | | 2006 | Visit-Trans | [facility] | Endocrinology | | | | kurt | Sacha | | | | | | [facility], | | | | | | 7th floor | | | | | | [place], [place] | | | | | | [address] | | | | | | [phone] | | | +--------+ + + + [...] as of this encounter Progress Notes Interface, Teletype Technician In - 09/16/2006 7:22 AM PDT [id number] GEOVANNI Barnes [id number] Clinic Date: 07/30/2006 Clinic: Endocrinology Subjective: Belinda [...] year. Beto Meeks M.D. PD / HS [id number] / [id number] / [id number] / [id number] cc: Joanna Arshad M.D. Jonathan Hitzman, M.D. [address] [facility] [place] [address] Electronically signed by Beto Meeks 09-15-2006 11:40:17 PM documented in this encounter Plan of Treatment Not on filedocumented as of this encounter Visit Diagnoses Not on filedocumented in this encounter"
--- OUTSIDE RECORDS SUMMARY | ~2019-11-17 | XMS | Encounter Summary ---
[...] Providers + +------+ + | Care Manager System Name | Role | Phone | + [...] + + | 12/13/ | Telephone | [facility] | Alanis, | Follow-up | | 2019 | | MEDICINE [address] [place] [address] | MD Petrona | | | | | [facility] | [address] [place] [address] | | | | | [place] [address] | [place] [address] | | | | | [phone] | [phone] | | | | | | | [...] | 2019 | Visit | | [facility] [address] | | | | | | [address] [place] | | | | | | [place] [address] | | | | | | [phone] | | | | | | | | +--------+---------+ + + + | 12/20/ | Office | Otolaryngology | Ulysses Genao MD | | | 2020 | Visit | | [address] | | | | | | [address] [place], | | | | | | [place] [address] | | | | | | [phone] | | | | | | | | +--------+---------+ + + + | 02/15/ | Office | Internal Medicine | Alanis, | | | 2019 | Visit | | MD Petrona | | | | | | [address] | | | | | | [place] [address] | | | | | | [phone] | | | | | | | | +--------+---------+ + + + documented as of this encounter Visit Diagnoses Not on filedocumented in this encounter"
--- OUTSIDE RECORDS SUMMARY | ~2019-11-17 | XMS | Encounter Summary ---
Demographics + + + | Address | [address] | | | [place] [address] | + + + | Home Phone [...] Providers + +------+ + | Care Mine Patrol Name | Role | Phone | + [...] + + | 03/02/ | Telephone | [facility] | Alanis, | Results, Imaging | | 2017 | | MEDICINE [address] | MD Petrona | | | | | [facility] | [address] [place] [address] | | | | | [place] [address] | [place] [address] | | | | | [phone] | [phone] | | | | | | | [...] | | | | | [place] [address] | | | | | | [phone] | | | | | | | | +--------+---------+ + + + | 12/20/ | Office | Otolaryngology | Ulysses Genao MD | | | 2019 | Visit | | [address] | | | | | | [address] [place], | | | | | | [place] [address] | | | | | | [phone] | | | | | | | | +--------+---------+ + + + | 02/15/ | Office | Internal Medicine | Alanis, | | | 2019 | Visit | | MD Petrona | | | | | | [address] [place] [address] [address] [place] | | | | | | [place] [address] | | | | | | [phone] | | | | | | | | +--------+---------+ + + + documented as of this encounter Visit Diagnoses Not on filedocumented in this encounter"
--- OUTSIDE RECORDS SUMMARY | ~2019-11-17 | XMS | Encounter Summary ---
Demographics + + + | Address | [address] | | | [place] [address] | + + + | Home Phone [...] Team Providers + +------+ + | Care Mallet Cutter Name | Role | Phone | + +------+ + | Maria Esther Cintron MD | PCP | | + +------+ + Encounter Details +--------+ + + + + | Date | Type | Department | Care Team | Description | +--------+ + + + + | 08/26/ | Telephone | [facility] | Chris Padgett, | | | 2010 | | [place] [address] | [address] [facility] | | | | | [place] Mailcode: CH4S | [address] | | | | | [facility] | [place], [place] | | | | | and Healing, | [address] | | | | | Building , 6th | [phone] | | | | | Floor [place], [place] | | | | | | [address] | | | | | | [phone] | | | +--------+ + + + [...]
--- OUTSIDE RECORDS SUMMARY | ~2019-11-17 | XMS | Encounter Summary ---
Demographics + + + | Address | [address] | | | [place] [address] | + + + | Home Phone [...] Team Providers + +------+ + | Care Stopper Grinder Name | Role | Phone | [...]
--- OUTSIDE RECORDS SUMMARY | ~2019-11-17 | XMS | Encounter Summary ---
Demographics + + + | Address | [address] | | | [place] [address] | + + + | Home Phone [...] Providers + +------+ + | Care Manager Retirement Name | Role | Phone | + +------+ + | Sulaiman Carrera MD | PCP | | + +------+ + Encounter Details +--------+ + + + + | Date | Type | Department | Care Team | Description | +--------+ + + + + | 06/30/ | Telephone | [facility] | Lukasz Ogden, | | | 2013 | | [address] | PhD [address] | | | | | Mailcode: CH15P | [place], [place] | | | | | [facility] | [address] | | | | | and Healing, | [phone] | | | | | Building | | | | | | Floor [place], [place] | | | | | | [address] | | | | | | [phone] | | | +--------+ + + + [...]
--- OUTSIDE RECORDS SUMMARY | ~2019-11-17 | XMS | Encounter Summary ---
Demographics + + + | Address | [address] | | | [place] [address] | + + + | Home Phone | | + + + | Preferred Language | Unknown | + + + | Marital Status | | + + + | Mandaeism Affiliation | 1001 | + + + [...] Team Providers + +------+ + | Care Tanker Serviceman Name | Role | Phone | + +------+ + | Petrona Thapa | PCP | | | MD | | | + +------+ + Encounter Details +--------+---------+ + + + | Date | Type | Department | Care Team | Description | +--------+---------+ + + + | 12/20/ | Office | [facility] | Elisabet Munson MS | Sensorineural | | 2019 | Visit | AUDIOLOGY AND | CCC-A [address] | hearing loss (SNHL) | | | | [facility] | [address] | of both ears | | | | [address] | [place] [address] | (Primary Dx); | | | | [address] | [phone] | Dizziness and | | | | [place] [address] | | giddiness | | | | [phone] | | | +--------+---------+ + + + [...] Progress Notes Elisabet Munson MS CCC-A - 12/20/2018 9:30 AM PDTReferring Provider: No additional provider found M.D. Ms. Meehan presents with dizziness and more [...] | +--------+---------+ + + + | 12/20/ Office | Audiology | Elisabet Munson MS | | | 2019 | Visit | | CASSANDRA [address] | | | | | | [place] | | | | | | [place] [address] | | | | | | [phone] | | | | | | | | +--------+---------+ + + + | 12/20/ | Office | Otolaryngology | Ulysses Genao MD | | | 2019 | Visit | | [address] | | | | | | [address] [place], | | | | | | [place] [address] | | | | | | [phone] | | | | | | | | +--------+---------+ + + + | 02/15/ | Office | Internal Medicine | Alanis, | | | 2019 | Visit | | MD Petrona | | | | | | [address] [place] | | | | | | [place] [address] | | | | | | [phone] | | | | | | | [...]
--- OUTSIDE RECORDS SUMMARY | ~2019-11-17 | XMS | Encounter Summary ---
Demographics + + + | Address | [address] | | | [place] [address] | + + + | Home Phone [...] Team Providers + +------+ + | Care Ginner Name | Role | Phone | + [...] | | | [facility] | [place], [place] | | | | | [address] | [address] | | | | | [address] | [phone] | | | | | Physician's | | | | | | Pavilion, 1st floor | | | | | | [place], [place] | | | | | | [address] | | | | | | [phone] | | | +--------+--------+ + + + [...]
--- OUTSIDE RECORDS SUMMARY | ~2019-11-17 | XMS | Encounter Summary ---
Demographics + + + | Address | [address] | | | [place] [address] | + + + | Home Phone [...] Providers + +------+ + | Care Network Pricing Consultant Name | Role | Phone | [...] + + | 05/30/ | Refill | [facility] | Alanis, | Medication Refill | | 2016 | | MEDICINE [address] [place] [address] | MD Petrona | | | | | [facility] | [address] [place] [address] | | | | | [place] [address] | [place] [address] | | | | | [phone] | [phone] | | | | | | | [...] | | | | | [place] [address] | | | | | | [phone] | | | | | | | | +--------+---------+ + + + | 12/20/ | Office | Otolaryngology | Ulysses Genao MD | | | 2019 | Visit | | [address] | | | | | | [address] [place], | | | | | | [place] [address] | | | | | | [phone] | | | | | | | | +--------+---------+ + + + | 02/15/ | Office | Internal Medicine | Alanis, | | | 2019 | Visit | | MD Petrona | | | | | | [address] [place] [address] [address] | | | | | | [place] [address] | | | | | | [phone] | | | | | | | | +--------+---------+ + + + documented as of this encounter Visit Diagnoses Not on filedocumented in this encounter"
--- OUTSIDE RECORDS SUMMARY | ~2019-11-17 | XMS | Encounter Summary ---
Demographics + + + | Address | [address] | | | [place] [address] | + + + | Home Phone [...] Team Providers + +------+ + | Care Grease Rack Worker Name | Role | Phone | [...] as of this encounter Progress Notes Interface, School Director In - 01/12/2005 10:09 AM PDT [id number] [facility] Date: 12/19/2004 Clinic: General [...] as vitamin B12. Melisa Thorne / SHARIF [id number] / [id number] / [id number] / [id number] cc: Pedrito Gutierrez M.D. [address] [address] FAX: [phone] Chris Padgett M.D. General Surgery, [facility] Electronically signed by Kenisha Melton 12-25-2004 04:28:39 PM documented i n this encounter Plan of Treatment Not on filedocumented as of this encounter Visit Diagnoses Not on filedocumented in this encounter"
--- OUTSIDE RECORDS SUMMARY | ~2019-11-17 | XMS | Encounter Summary ---
Demographics + + + | Address | [address] | | | [place] [address] | + + + | Home Phone [...] Providers + +------+ + | Care Senior Microsoft Net Developer Name | Role | Phone | [...] | | | | | Encounter | [place] | [place] | | | | | for | [address] | [address] | | | | | long-term | | Phone: | | | | | (current) | | [phone] | | | | | use of other | | Fax: | | | | | medications | | [phone] | | | | | LBP (low [...] 04/21/ | Office | [facility] | Lukasz Charles, | Major depressive | | 2012 | Visit | [address] | PhD [address] | disorder, recurrent | | | | Mailcode: CH15P | [place], [place] | episode, moderate | | | | [place] for [facility] | [address] | ([facility]) (Primary Dx); | | | | and Healing, | [phone] | LBP (low back pain); | | | | | | Fibromyalgia; | | | | Floor [place], [place] | | Adjustment disorder | | | | [address] | | with anxiety | | | | [phone] | | | +--------+---------+ + + + [...] provider who recommended that she return to [facility] for pain assessment and treatment. She reported [...] some changes in her living situation. Diagnosis: [place] I: 1. (296.32) Major depressive disorder, recurrent, moderate. 2. (309.24) Adjustment disorder with anxiety. [place] II: Deferred [place] III: abdominal pain, migraine headache, low back pain, fibromyalgia. [place] IV: low finances [place] V: GAF 55-60 Plan: return in 1 month. Check mood, pain, activity. Ask about visiting with Dr. Montero, spinal cord stimulator, any changes at home. Continue cognitive/behavioral therapy. Total time spent with patient was approximately 50 minutes. LUKASZ CHARLES PHD [facility] [address] [place] [address] [place] [address] documented in this en counter Plan of [...]
--- OUTSIDE RECORDS SUMMARY | ~2019-11-17 | XMS | Encounter Summary ---
Demographics + + + | Address | [address] | | | [place] [address] | + + + | Home Phone [...] Providers + +------+ + | Care Automatic Toe Laster Name | Role | Phone | + [...] + + | 11/17/ | Office | [facility] | Alanis, | Bilateral leg edema | | 2018 | Visit | MEDICINE [address] [place] [address] | MD Petrona | (Primary Dx); Venous | | | | [address] | [address] [facility] | insufficiency; | | | | [place] [address] | [place] [address] | Fatigue, unspecified | | | | [phone] | [phone] | type | | | | | [...] apnea Spondylosis with myelopathy, lumbar region Stroke ([facility]) Syncope Tremor Type II or [...] mcg 1,000 mcg Intramuscular Q30 Days Cla steve-Russell Thapa MD 1,000 mcg at 11/17/17 1116 ALLERGIES Allergies Allergen Reactions Codeine Sulfate Nausea Only Levofloxacin Hives, Itching and Rash Amitriptyline Hcl Other (See Comments) Confused and questionable for seizures Vpyasqaswn-Bywz-Rhldpqxt Cephalexin Hives Duloxetine Migraines and nausea Ketorolac Hives Morphine Swelling Ropinirole Hcl Hives Tramadol Hcl Nausea Only Kcembgmtna-Zvnr-Cogaygqz Hives and Rash Ciprofloxacin Hives and Rash [...] Note: Parts of this documentwere created using Zong speech recognition software. As a r esult, there may be unintended word spelling errors. Every attempt was made to correct the dictation. Lisa Recinos CMA - 11/17/2017 10:45 AM PDTFormatting of this note might be different from the origi nal. Administrations This Visit cyanocobalamin (VITAMIN B-12) injection 1,000 mcg Admin Date 11/17/2017 Action Given Dose 1000 mcg Route Intramuscular Administered By Valencia oGvea CMA documented in this enc ounter Plan of Treatment +--------+---------+ + + + | Date | Type | Specialty | Care Team | Description | +--------+---------+ + + + | 12/20/ | Office | Audiology | Elisabet Munson MS | | | 2019 | Visit | | [facility] [address] | | | | | | [address] | | | | | | [place] [address] | | | | | | [phone] | | | | | | | | +--------+---------+ + + + | 12/20/ | Office | Otolaryngology | Ulysses Genao MD | | | 2019 | Visit | | [address] | | | | | | [address] [place], | | | | | | [place] [address] | | | | | | [phone] | | | | | | | | +--------+---------+ + + + | 02/15/ | Office | Internal Medicine | Alanis, | | | 2020 | Visit | | MD Petrona | | | | | | [address] [place] [address] [address] | | | | | | [place] [address] | | | | | | [phone] | | | | | | | [...] + + | Performing | Address | City/State/[facility] | Phone Number | | Organization | | | | + + + + + | [address] | [address] | [place] | [phone] | | [facility] | | [address] | | | - LABORATORY | | [...] [facility] | | | | | | [facility] | | | Sedimentati | | [...] [address] | [place] | [phone] | | [facility] | | [address] | | | - LABORATORY | | [...] | third generation TSH | uIU/mL | [facility] | | | | test. | [...] + | [facility] | [address] | [place] | [phone] | | [facility] | | [address] | | | - LABORATORY | | [...] | 0.72 | 0.60 - 1.30 | [facility] | | | | | mg/dL | [facility] | | | | | | MEDICAL | | | | | | CENTER - | | | | | | LABORATORY | | + + + + + + | eGFR if not | >60Comment: GLOMERULAR | >=60 | [facility] | | | | FILTRATION | mL/min/1.73m2 | Yudy [facility] | | | MONTSERRATIAN | RATE,ESTIMATED | | MEDICAL | | | | mL/min/1.72t1Pnyq than | | CENTER - | | [...] [address] | [place] | [phone] | | [facility] | | [address] | | | - LABORATORY | | [...] | | | | | M/uL | . [facility] | | | | [...] ST. | [address] | [place] | [phone] | | [facility] | | [address] | | | - LABORATORY | | [...]
--- OUTSIDE RECORDS SUMMARY | ~2019-11-17 | XMS | Encounter Summary ---
Demographics + + + | Address | [address] | | | [place] [address] | + + + | Home Phone [...] Team Providers + +------+ + | Care Renal Dietitian Name | Role | Phone | [...] (has been | | 2007 | | Chancellor [address] | [address] | in the bathroom | | | | Ave Mailcode: CH4S | [facility] | since one this | | | | [facility] | [place], [place] | morning with | | | | and Healing, | [address] | IBS/dumping syndrome | | | | Building [address], | [phone] | symptoms) | | | | Floor [place], [place] | | | | | | [address] | | | | | | [phone] | | | +--------+ + + + [...]
--- OUTSIDE RECORDS SUMMARY | ~2019-11-17 | XMS | Encounter Summary ---
Demographics + + + | Address | [address] | | | [place] [address] | + + + | Home Phone | | + + + | Preferred Language | Unknown | + + + | Marital Status | | + + + | Yazidism Affiliation | 1001 | + + + | Race | Unknown | + + + | Ethnic Group | Unknown | + + + Author + + + | Author | [facility] | | | and [place] | + + + | Organization | [facility] | | [...] Team Providers + +------+ + | Care Scientific Illustrator Name | Role | Phone | + [...] + | 10/05/ | Telephone | [facility] | Alanis, | Appointment Question | | 2018 | | MEDICINE [address] [place] [address] | MD Petrona | | | | | [facility] | [address] [place] [address] | | | | | [place] [address] | [place] [address] | | | | | [phone] | [phone] | | | | | | | [...] | Visit | | [facility] [address] | | | | | | [address] [place] | | | | | | [place] [address] | | | | | | [phone] | | | | | | | | +--------+---------+ + + + | 12/20/ | Office | Otolaryngology | Ulysses Genao MD | | | 2019 | Visit | | [address] | | | | | | [address] [place], | | | | | | [place] [address] | | | | | | [phone] | | | | | | | | +--------+---------+ + + + | 02/15/ | Office | Internal Medicine | Alanis, | | | 2019 | Visit | | MD Petrona | | | | | | [address] | | | | | | [place] [address] | | | | | | [phone] | | | | | | | | +--------+---------+ + + + documented as of this encounter Visit Diagnoses Not on filedocumented in this encounter"
--- OUTSIDE RECORDS SUMMARY | ~2019-11-17 | XMS | Encounter Summary ---
Demographics + + + | Address | [address] | | | [place] [address] | + + + | Home Phone [...] | Author | [facility] | | | and [place] | + + + | Organization | [facility] | | | and [...] Providers + +------+ + | Care Inspector Integrated Circuits Name | Role | Phone | + [...] + + | 11/22/ | Refill | [facility] | Alanis, | Medication Refill | | 2018 | | MEDICINE [address] [place] [address] | MD Petrona | | | | | [facility] | [address] [place] [address] | | | | | [place] [address] | [place] [address] | | | | | [phone] | [phone] | | | | | | | [...] | | | | | [place] [address] | | | | | | [phone] | | | | | | | | +--------+---------+ + + + | 12/20/ | Office | Otolaryngology | Ulysses Genao MD | | | 2019 | Visit | | [address] | | | | | | [address] [place], | | | | | | [place] [address] | | | | | | [phone] | | | | | | | | +--------+---------+ + + + | 02/15/ | Office | Internal Medicine | Alanis, | | | 2019 | Visit | | MD Petrona | | | | | | [address] [place] [address] [address] | | | | | | [place] [address] | | | | | | [phone] | | | | | | | | +--------+---------+ + + + documented as of this encounter Visit Diagnoses Not on filedocumented in this encounter"
--- OUTSIDE RECORDS SUMMARY | ~2019-11-17 | XMS | Encounter Summary ---
Demographics + + + | Address | [address] | | | [place] [address] | + + + | Home Phone [...] Team Providers + +------+ + | Care Laundromat Worker Name | Role | Phone | + +------+ + | Pedrito Gutierrez MD | PCP | | + +------+ + Encounter Details +--------+---------+ + + + | Date | Type | Department | Care Team | Description | +--------+---------+ + + + | 08/05/ | Office | Comprehensive Pain | Nathalia Arora | Cervical Spondylosis | | 2006 | Visit | [facility] | [address] | without Myelopathy | | | | [facility] | [address] [place], | (Primary Dx); | | | | Mychal [place] Mailcode: | [place] [address] | Spondylosis with | | | | CH15[facility] | | Myelopathy, Lumbar | | | | Health and Healing, | | Region; Herniated | | | | Building | | Lumbar | | | | Floor [place], [place] | | Intervertebral Disc; | | | | [address] | | Unspecified Myalgia | | | | [phone] | | and Myositis | +--------+---------+ + [...] Progress Note Date: 08/05/2006 Belinda Molly Shefali [id number] Start of Care: 06/23/2006 Referring Provider: [...] keep hydrated, went to the ED in [place] and was sent home by the M.DYudy There without a ny treatment and advised by him to contact the pain clinic. Patient did not some relief with her last treatment, and continues her exercises consistent ly. She is walking [facility] at [facility] for 15-20 minutes, sitting X [...]
--- OUTSIDE RECORDS SUMMARY | ~2019-11-17 | XMS | Encounter Summary ---
Demographics + + + | Address | [address] | | | [place] [address] | + + + | Home Phone [...] Team Providers + +------+ + | Care Rural Electrification Engineer Name | Role | Phone | [...] + + | 07/24/ | Office | [facility] Comprehensive | Delfina Lambert, | Chronic Bilateral | | 2008 | Visit | Pain Center at | ANP | Shoulder Pain | | | | [facility] | | (Primary Dx); Spinal | | | | [address] | | Fusion Lumbar spine | | | | Mailcode: CH15P | | ; LBP (Low Back | | | | [facility] | | Pain); Osteopenia; | | | | and Healing, | | Fibromyalgia | | | | Building | | syndrome 729.1; | | | | Floor [place], [place] | | Major Depressive | | | | [address] | | Disorder, Recurrent | | | | [phone] | | Episode, Moderate | | | | | | ([facility]); Adjustment | | | | | [...] Belinda Meehan is a 48 y.o. female [facility] Comprehensive Pain Center Return Visit [...] drawing has be completed, which I reviewed. [facility] Brief Pain Inventory: (ten= worst possible [...] 300 mg) by oral route once daily juugsoyeje-nlrqsyonmeowg-cgtyixez (FIORICET) 50-325-40 mg Oral Tablet take 2 [...] 278 01/18 Paniculectomy Hx lumbar fusion 05/2008 [id number] with bone spur removals Family History Problem [...] plain x rays of bilateral shoulders, today [facility] building third floor, I reviewed the right [...] [facility] Mail code CH 4P [facility] [address] [place] [id number] Ailyn Bello - 02/2009 3:13 PM [...] report.Author: | | | | | | Jaonna BALLESTEROSReviewer: | | | | | | [...] | | + +---------+ + + | [facility] DEPARTMENT OF | | | | | [...]
--- OUTSIDE RECORDS SUMMARY | ~2019-11-17 | XMS | Encounter Summary ---
Demographics + + + | Address | [address] | | | [place] [address] | + + + | Home Phone [...] Providers + +------+ + | Care Paper Twister Name | Role | Phone | + [...] | | 2006 | Visit | [facility] | [address] | Pain; Cervical Pain; | | | | [facility] [address] [place], | Pain in Joint, Site | | | | [address] Mailcode: | [place] [address] | Unspecified; | | | | [facility]15[facility] | | Depression | | | | Health and Healing, | | | | | | Building | | | | | | Floor [place], [place] | | | | | | [address] | | | | | | [phone] | | | +--------+---------+ + + + [...] EVALUATION NOTE Date: 06/23/2006 Name: Belinda Meehan [id number] 46 y.o. female Start of Care: 06/23/2005 [...] the last few gregory hs. Handedness: right [place]: [place], [place] Chief Complaint: Headaches and cervical pain, bilateral [...] HX SALPINGO-OOPHORECTOMY COLONOSCOPY Comment: 03/2006 HX TONSILLECTOMY CO D&C AFTER DELIVERY CO INJECT TRIGGER POINT, 1 OR 2 Medications: [...] + + +--------+ + + | CO PHYS THERAPY | Procedures | Routin | [...]
--- OUTSIDE RECORDS SUMMARY | ~2019-11-17 | XMS | Encounter Summary ---
Demographics + + + | Address | [address] | | | [place] [address] | + + + | Home Phone [...] Team Providers + +------+ + | Care Delivery Sales Worker Name | Role | Phone | [...] | | | | Clinical Nutrition | [place], [place] | | | | | [address] | [address] | | | | | Loop Mailcode: OPC5 | [phone] | | | | | Outpatient Clinic | | | | | | [facility], | | | | | | [place] [address] | | | | | | [phone] | | | +--------+ + + + [...]
--- OUTSIDE RECORDS SUMMARY | ~2019-11-17 | XMS | Encounter Summary ---
Demographics + + + | Address | [address] | | | [place] [address] | + + + | Home Phone [...] Team Providers + +------+ + | Care Cryptologic Technician Operator/Analyst Name | Role | Phone | + [...] as of this encounter Progress Notes Interface, Rent And Miscellaneous Remittance Clerk In - 01/12/2005 10:09 AM PDT [id number] [facility] Date: 12/25/2004 Clinic: GENERAL [...] will send an emergency supply fax to [facility] at fax #[phone], first 30 pills, oxycodone 5 mg to [...] the current plan. Melisa Thorne / SHARIF [id number] / [id number] / [id number] / [id number] Electronically signed by Kenisha Melton 01-01-2005 04:41:20 PM documented i n this encounter Plan of Treatment Not on filedocumented as of this encounter Visit Diagnoses Not on filedocumented in this encounter"
--- OUTSIDE RECORDS SUMMARY | ~2019-11-17 | XMS | Encounter Summary ---
Demographics + + + | Address | [address] | | | [place] [address] | + + + | Home Phone [...] | | + + +---------+ + | Macro Antonio Wells | ECON | Unknown | | + + +---------+ + Care Team Providers + +------+ + | Care Chief Diversity Officer Name | Role | Phone | [...] + + | 05/18/ | Refill | [facility] | Alanis, | Medication Refill | | 2016 | | MEDICINE [address] [place] [address] | MD Petrona | | | | | [facility] | [address] [place] [address] | | | | | [place] [address] | [place] [address] | | | | | [phone] | [phone] | | | | | | | [...] 2019 | Visit | | [facility] [address] | | | | | | [address] [place] | | | | | | [place] [address] | | | | | | [phone] | | | | | | | | +--------+---------+ + + + | 12/20/ | Office | Otolaryngology | Ulysses Genao MD | | | 2019 | Visit | | [address] | | | | | | [address] [place], | | | | | | [place] [address] | | | | | | [phone] | | | | | | | | +--------+---------+ + + + | 02/15/ | Office | Internal Medicine | Alanis, | | | 2019 | Visit | | MD Petrona | | | | | | [address] [place] [address] [address] | | | | | | [place] [address] | | | | | | [phone] | | | | | | | | +--------+---------+ + + + documented as of this encounter Visit Diagnoses Not on filedocumented in this encounter"
--- OUTSIDE RECORDS SUMMARY | ~2019-11-17 | XMS | Encounter Summary ---
Demographics + + + | Address | [address] | | | [place] [address] | + + + | Home Phone [...] Team Providers + +------+ + | Care Annual Giving Officer Name | Role | Phone | [...] | | | | | Encounter | [place] | | | | | for | [address] | [address] | | | | | long-term | | Phone: | | | | | (current) | | [phone] | | | | | use of other | | Fax: | | | | | medications | | [phone] | | | | | LBP (low [...] | Diagnoses | Paco, | Fili Pt Leaflet Or Newspaper Deliverer | | | | Therapy | Myalgia and | Rosi T, ANP | [address] | | | | | myositis, | [address] | | | | | unspecified | [address] | Mailcode: | | | | | LBP (low | [place], [place] | [facility] | | | | | back pain) | [address] | for Health | | | | | Chronic | | and Healing, | | | | | shoulder | | [address] | | | | | pain Muscle | | [place], [place] | | | | | strain | | [address] | | | | | Radicular | | Phone: | | | | | pain in left | | [phone] | | | | | arm Neck [...] | | pain | [place], [place] | [place], [place] | | | | | | [address] | [address] | | | | | | Phone: | | | | | | | [phone] | | | | | | | Fax: | | | | | | | [phone] | | +--------+--------+ + + + + Encounter Details +--------+---------+ + + + | Date | Type | Department | Care Team | Description | +--------+---------+ + + + | 04/05/ | Office | [facility] Comprehensive | Rosi Antonio, | LBP (low back pain) | | 2012 | Visit | Pain Center at | ANP | (Primary Dx); | | | | [facility] | | Fibromyalgia | | | | [address] | | syndrome 729.1; | | | | Mailcode: CH15P | | Encounter for | | | | [place] [facility] | | Long-Term (Current) | | | | and Healing, | | Use of Opioids; | | | | | | Chronic Bilateral | | | | Floor [place], [place] | | Shoulder Pain; | | | | [address] | | Muscle Strain hips; | | | | [phone] | | Radicular pain in | | [...] her to return to see Dr. Murali oMntero to discuss these treatment options. Consult to [facility] physical therapy: A supervised physical [...] you have questions or concerns. [facility] [address] Mail Code: [place] [address] documented in this encounter Progress Notes Rosi Antonio ANP - 04/05/2013 9:28 AM PDTFormatting of this note might be different fro m the original. [facility] Office Visit 04/05/2013 Belinda Meehan; ; : 1960 Ms. Meehan was referred for pain management consultation by Taqueria Raman NP [address] [place] [address] Chief Complaint Patient presents with New patient [...] to taper off gabapentin 2. Order for [facility] neurology Dr. Taniya Guerrero if [...] Dr. Lit Cintron in [place] at the [facility] and had good relief [...] included: Epidural steroid injections she received in [place] and helped for a short time GUSSET MAKER Brief Pain Inventory: (ten= worst possible pain [...] right knee Lumbar fusion 05/2008 & 2011 L5-E5qgymrl with bone spur removals Appendectomy Cholecystectomy section [...] Hives Mainly in the legs Clindamycin Codeine Dadutqw-Kfksmdrkyu-Ipu-Caff Balance problems Fioricet W/Codeine (Cemkvpznrq-Enyhlxtfjy-Eot-Cod) Keflex (Cephalexin) Morphine IM ( only in [facility]) made gut pain worse 08/27/06: [...] levels. As part of today's visit the [facility] new patient questionnaire was [...] you expect from your visits to the [facility] ? Don't know BP [...] Overview Note: Surgery 05/15/08 Dr Ricky Garnett [facility] to get operative reports Osteopenia 08/24/2007 LBP [...] before her lumbar surgeries and recently in [place]. She has short-term relief from the se treatments. I would like her to return to see Dr. Murali Montero to discuss these treatment options. Consult to [facility] physical therapy: A supervised physical [...] is my privilege to be part of [facility] health care team. Pl ease free to contact me at any time if you have questions or concerns. I spent 30 minutes with the patient of which more than 50% was spent wrhog-bu-crdi in [facility] pain questionnaire, medical record, consultation, discussion, addressing questions and counselling/education. [facility] Callum Kovacs Mail Code: [place] [id number] mith, Maris Lopez MA - 04/05/2013 8:25 [...]
--- OUTSIDE RECORDS SUMMARY | ~2019-11-17 | XMS | Encounter Summary ---
Demographics + + + | Address | [address] | | | [place] [address] | + + + | Home Phone [...] Team Providers + +------+ + | Care Esol Teacher Name | Role | Phone | [...] Description | +--------+---------+ + + + | 12/04/ | Office | Pain Center at [facility] | Lukasz Charles, | Major Depressive | | 2006 | Visit | [address] | PhD [address] | Disorder, Recurrent | | | | Mailcode: 15 | [place], [place] | Episode, Moderate | | | | [facility] | [address] | ([facility]); Spondylosis | | | | and Healing, | [phone] | with Myelopathy, | | | | Building | | Lumbar Region; Left | | | | Floor [place], [place] | | Knee Pain; | | | | [address] | | Adjustment Disorder | | | | [phone] | | with Anxiety; Other | | [...] this encounter Progress Notes Lukasz Charles - 12/04/2006 10:31 AM PDTPROGRESS NOTE: Belinda Meehan is a 46 y.o. female with head, abdominal, back, and leg pain. She has sym ptoms of depression and anxiety along with her pain. She reported being busy lately taking care of her 4 young nephews. She is planning on knee surgery in February and is very pleas ed. She has good plans for the summer and we will meet after her surgery in the fall. We d iscussed the need to pace herself. She pushed herself lately and has had some increased sina n. She is using relaxation techniques with good result. Ms. Meehan has ongoing depression and frustration. She is not suicidal. She is stable an d is using some good self-care skills. She has some good plans for more activity and she is optimistic about her knee surgery. Diagnosis: Force I: 1. (296.32) Major depressive disorder, recurrent, moderate. 2. (309.24) Adjustment disorder with anxiety. 3. 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 Force II: Deferred Force III: abdominal pain, migraine headache, low back pain. Force IV: low finances Force V: GAF 55-60 Plan: Return in 3 months. Check mood, knee surgery, pacing, relaxation, activity, distraction. Continue cognitive/behavioral therapy. Discuss need for further sessions. Total time spent with patient was approximately 45 minutes. LUKASZ CHARLES PHD [facility] [address] [facility], 4th [place] [address] documented in this encount er Plan of Treatment + + +--------+ + + | Name | Type | Priori | Associated Diagnoses | Order Schedule | | | | ty | | | + + +--------+ + + | CA PSYCHOTHERPY, | Procedures | Routin | Major Depressive | Ordered: 12/04/2006 | | OFFICE (45-50) | | e | Disorder, Recurrent | | | | | | Episode, Moderate | | | | | | ([facility]) Spondylosis | | | | | [...]
--- OUTSIDE RECORDS SUMMARY | ~2019-11-17 | XMS | Encounter Summary ---
Demographics + + + | Address | [address] | | | [place] [address] | + + + | Home Phone [...] Providers + +------+ + | Care Wood Ski Maker Name | Role | Phone | + +------+ + | Petrona Thapa | PCP | | | MD | | | + +------+ + Reason for Visit + + + | Reason | Comments | + + + | Pain Management | Sees pain clinic in [facility], Was switched to [facility] | | | Transbuccal every 12 hrs [...] | Acquired | | | | [place] [address] | [place] [address] | hypothyroidism; | | | | [phone] | [phone] | Chronic bilateral | | | | [...] with Pain Management Sees pain clinic in [facility], Was switched to Belbuca 150mc Transbuccal every 12 hrs Results, Imaging HPI Belinda Praful Meehan is a 57 y.o. y/o female who presents today for f/u for several issues: Has had a visit w/ the pain in the [facility], [place], and they gave her a trial of [...] and has been on monthly B12 in [facility] for the last several months. REVIEW OF SYSTEMS See HPI for further details. Review of systems otherwise negative. PAST MEDICAL HISTORY Past Medical History: Diagnosis Date Arthritis Atypical chest pain Benign essential hypertension Blind left eye Cervical radiculopathy Chronic low back pain 01/04/2015 Chronic neck pain 01/04/2015 Chronic pain Chronic venous insufficiency Coccydynia COPD (chronic obstructive pulmonary disease) ([facility]) Depression Diarrhea Dumping syndrome Fatigue fracture of [...] (See Comments) Confused and questionable for seizures Lmsoalhhcl-Ucut-Tqiobufg Cephalexin Hives Ketorolac Hives Morphine Swelling Tramadol Hcl Nausea Only Kssbgvosbr-Qdvp-Bpyysfsj Hives and Rash Ciprofloxacin Hives and Rash [...] Note: Parts of this documentwere created using [email or web address] speech recognition software. As a r esult, [...] [address] | | | | | | [address] [place] | | | | | | [place] [address] | | | | | | [phone] | | | | | | | | +--------+---------+ + + + | 12/20/ | Office | Otolaryngology | Ulysses Genao MD | | | 2019 | Visit | | [address] [facility] | | | | | | [address] [place], | | | | | | [place] [address] | | | | | | [phone] | | | | | | | | +--------+---------+ + + + | 02/15/ | Office | Internal Medicine | Alanis, | | | 2019 | Visit | | MD Petrona | | | | | | [address] [place] | | | | | | [place] [address] | | | | | | [phone] | | | | | | | [...]
--- OUTSIDE RECORDS SUMMARY | ~2019-11-17 | XMS | Encounter Summary ---
Demographics + + + | Address | [address] | | | [place] [address] | + + + | Home Phone [...] Team Providers + +------+ + | Care Restaurant Cook Name | Role | Phone | + [...] + + | 03/29/ | Telephone | [facility] | Alanis, | Medication Prior | | 2017 | | MEDICINE [address] [place] [address] | MD Petrona | Authorization | | | | [facility] | [address] [place] [address] | (Gabapentin ) | | | | [place] [address] | [place] [address] | | | | | [phone] | [phone] | | | | | | | [...] [place] | | | | | | [place] [address] | | | | | | [phone] | | | | | | | | +--------+---------+ + + + | 12/20/ | Office | Otolaryngology | Ulysses Genao MD | | | 2019 | Visit | | [address] [place] | | | | | | [address] [place], | | | | | | [place] [address] | | | | | | [phone] | | | | | | | | +--------+---------+ + + + | 02/15/ | Office | Internal Medicine | Alanis, | | | 2019 | Visit | | MD Petrona | | | | | | [address] | | | | | | [place] [address] | | | | | | [phone] | | | | | | | | +--------+---------+ + + + documented as of this encounter Visit Diagnoses Not on filedocumented in this encounter"
--- OUTSIDE RECORDS SUMMARY | ~2019-11-17 | XMS | Encounter Summary ---
Demographics + + + | Address | [address] | | | [place] [address] | + + + | Home Phone [...] Team Providers + +------+ + | Care Pull Socket Assembler Name | Role | Phone | [...] as of this encounter Discharge Summaries Interface, Tax Preparer In - 01/12/2005 6:32 AM PDTAdmission Date: [...] M.D., D.M.D. Chris Padgett M.D. CLAIRE/carolynn A [id number] cc: documente d in this encounter Plan of Treatment Not on filedocumented as of this encounter Visit Diagnoses Not on filedocumented in this encounter"
--- OUTSIDE RECORDS SUMMARY | ~2019-11-17 | XMS | Encounter Summary ---
Demographics + + + | Address | [address] | | | [place] [address] | + + + | Home Phone [...] Team Providers + +------+ + | Care Medicaid Eligibility Specialist Name | Role | Phone | [...] + + | 07/24/ | Office | [facility] Comprehensive | Delfina Lambert, | Chronic Bilateral | | 2008 | Visit | Pain Center at | ANP | Shoulder Pain | | | | [facility] | | (Primary Dx); Spinal | | | | [address] | | Fusion Lumbar spine | | | | Mailcode: CH15P | | ; LBP (Low Back | | | | [facility] | | Pain); Osteopenia; | | | | and Healing, | | Fibromyalgia | | | | Building | | syndrome 729.1; | | | | Floor [place], [place] | | Major Depressive | | | | [address] | | Disorder, Recurrent | | | | [phone] | | Episode, Moderate | | | | | | ([facility]); Adjustment | | | | [...] Meehan is a 48 y.o. female [facility] Center Return Visit Chief [...] drawing has be completed, which I reviewed. [facility] Brief Pain Inventory: (ten= worst possible [...] 300 mg) by oral route once daily mysegqmray-auihmzjwocyxe-rotopysk (FIORICET) 50-325-40 mg Oral Tablet take 2 [...] 278 01/18 Paniculectomy Hx lumbar fusion 05/2008 L1-S6tcyhsr with bone spur removals Family History Problem [...] plain x rays of bilateral shoulders, today [facility] building third floor, I reviewed [...] COMPRE[facility] Mail code CH 4P [facility] [address] [place] [address] Ailyn Bello - 02/2009 3:13 PM [...] | + +---------+ + + | [facility] DEPARTMENT OF | | | | [...]
--- OUTSIDE RECORDS SUMMARY | ~2019-11-17 | XMS | Encounter Summary ---
Demographics + + + | Address | [address] | | | [place] [address] | + + + | Home Phone [...] Providers + +------+ + | Care Broom Stitcher Name | Role | Phone | [...] Pain; Status Post | | | | [place], [place] | | Bariatric Surgery | | | | [address] | | | | | | [phone] | | | +--------+------+ + + + [...] Performed At | + + + | [id number] Estimated GFR > 60 mL/min/1.73 sq m if non- | [facility] | | Haitian [id number] Estimated GFR > 60 mL/min/1.73 sq m if | DEPARTMENT OF | | Haitian GFR is estimated using the MDRD equation [...] [facility] | [address] | [place] [address] | | | PATHOLOGY | [address] | | | + + + + + | [facility] DEPARTMENT | [address] | [place] [address] | | | PATHOLOGY | [address] | | | + + + + + INR (08/28/2008 3:31 PM PDT) + + + + + + | Component | Value | Ref Range | Performed | Pathologist | | | | | At | Signature | + + + + + + | INR | 0.96Comment: | 0.90 - 1.20 INR | [facility] | | | | INR Therapeutic [...] [facility] | [address] [facility] | [place] [address] | | | PATHOLOGY | [address] | | | + + + + + | [facility] DEPARTMENT OF | [address] | [place] [address] | | | PATHOLOGY | [address] | | | + + + + + documented in this encounter Visit Diagnoses + + | Diagnosis | + + | Chronic abdominal pain Abdominal pain, unspecified site | + + | Status post bariatric surgery Bariatric surgery status | + + documented in this encounter"
--- OUTSIDE RECORDS SUMMARY | ~2019-11-17 | XMS | Encounter Summary ---
Demographics + + + | Address | [address] | | | [place] [address] | + + + | Home Phone [...] Providers + +------+ + | Care Lead Mobile Developer Name | Role | Phone [...] as of this encounter Progress Notes Interface, Marine Electrician Helper In - 07/03/2006 2:33 AM PST [id number] GEOVANNI SKELTON J [id number] Clinic Date: 06/24/2006 Clinic: Rheumatology Subjective: Belinda Meehan is a 46-year-old woman here for followup of fibromyalgia. 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 Caitlin Rivera M.S., F.N.P. / [id number] / [id number] / [id number] / [id number] cc: [facility] Electronically signed by Caitlin Rivera 07-02-2006 11:27:56 AM documented in this encounter Plan of Treatment Not on filedocumented as of this encounter Visit Diagnoses Not on filedocumented in this encounter"
--- OUTSIDE RECORDS SUMMARY | ~2019-11-17 | XMS | Encounter Summary ---
Demographics + + + | Address | [address] | | | [place] [address] | + + + | Home Phone [...] Providers + +------+ + | Care Associate Director Of Development Name | Role | Phone [...] | +--------+ + + + + | 09/25/ | Telephone | [facility] | Alanis, | Other | | 2018 | | MEDICINE [address] [place] [address] | MD Petrona | | | | | [facility] | [address] [place] [address] | | | | | [place] [address] | [place] [address] | | | | | [phone] | [phone] | | | | | | | [...] | | | | | [place] [address] | | | | | | [phone] | | | | | | | | +--------+---------+ + + + | 12/20/ | Office | Otolaryngology | Ulysses Genao MD | | | 2019 | Visit | | [address] | | | | | | [address] [place], | | | | | | [place] [address] | | | | | | [phone] | | | | | | | | +--------+---------+ + + + | 02/15/ | Office | Internal Medicine | Alanis, | | | 2019 | Visit | | MD Petrona | | | | | | [address] | | | | | | [place] [address] | | | | | | [phone] | | | | | | | | +--------+---------+ + + + documented as of this encounter Visit Diagnoses + + | Diagnosis | + + | OLIVER (obstructive sleep apnea) - Primary Obstructive sleep apnea (adult) (pediatric) | + + documented in this encounter"
--- OUTSIDE RECORDS SUMMARY | ~2019-11-17 | XMS | Encounter Summary ---
Demographics + + + | Address | [address] | | | [place] [address] | + + + | Home Phone [...] Team Providers + +------+ + | Care Consumer Attorney Name | Role | Phone | + [...] + + | 11/14/ | Office | [facility] | Alanis, | Situational | | 2019 | Visit | MEDICINE [address] [place] [address] | MD Petrona | depression (Primary | | | | [facility] | [address] [place] [address] | Dx); B12 deficiency; | | | | [place] [address] | [place] [address] | Chronic diarrhea; | | | | [phone] | [phone] | History of Zoe-en-Y | | | [...] migraine COPD (chronic obstructive pulmonary disease) ([facility]) Depression Diarrhea Dumping syndrome Fall at home Fatigue fracture of vertebra Fibromyalgia Full dentures GERD (gastroesophageal reflux disease) Glaucoma Hyperparathyroidism ([facility]) Hypothyroidism IBS (irritable bowel syndrome) Idiopathic scoliosis Leg edema Low back pain Lumbar postlaminectomy syndrome Lumbar radiculopathy primarily right 01/04/2015 Meniere syndrome Migraine with aura Migraines Muscle cramping Muscle spasm Myalgia Nausea Nonalcoholic hepatosteatosis Obesity Opioid dependence ([facility]) Orthostatic hypotension OLIVER (obstructive sleep apnea) Osteoarthritis, generalized Osteopenia Osteoporosis Palpitations Peripheral neuropathy Rheumatoid arthritis ([facility]) Right arm pain 01/04/2015 RLS (restless legs syndrome) S/P lumbar fusion 01/04/2015 Scoliosis Sleep apnea Spondylosis with myelopathy, lumbar region Stroke ([facility]) Syncope Tremor Type II or unspecified type [...] Procedure: COLONOSCOPY; Surgeon: Luther Brito MD; Location: [facility] MEDICAL PROCEDURE UNIT DILATION AND CURETTAGE OF UTERUS ELBOW SURGERY FINGER TRIGGER RELEASE 2002 FINGER TRIGGER RELEASE 2009 GASTRIC BYPASS SURGERY 2004 HYSTERECTOMY 05/14/1980 JOINT REPLACEMENT Bilateral 2007 2007 KNEE ARTHROSCOPY 2005 LAPAROSCOPY 01/27/2015 LAPAROTOMY 2008 ROTATOR CUFF REPAIR 2005 SPINE SURGERY TONSILLECTOMY 1964 UPPER GASTROINTESTINAL ENDOSCOPY N/A 12/18/2017 Procedure: EGD; Surgeon: Luther Brito MD; Location: [facility] MEDICAL PROCEDURE UNIT CURRENT MEDICATIONS Current [...] Allergen Reactions Ensure Diarrhea Food Diarrhea Lactose Igiyphiapm-Ltd-Xdgs-Codeine Other (See Comments) Balance problems Codeine Sulfate Nausea Only Food Allergy Formula Diarrhea Ensure Levofloxacin Hives, Itching and Rash Butalbital Ropinirole Amitriptyline Hcl Other (See Comments) Confused and questionable for seizures Ljjqlxebzw-Jboj-Ixugpbfx Rash duplicate Kdzcqnvliz-Rtbx-Qeuwgsuu Hives and Rash Cephalexin Hives Ciprofloxacin Hives [...] 1. Parts of this documentwere created using [employer] speech recognition software. As a resu lt, there may be unintended word spelling errors. Every attempt was made to correct the di ctation. Teresa Adame, Manager Wound - 11/15/2019 9:30 AM PDTFormatting of this note might be diff erent from the original. Administrations This Visit cyanocobalamin (VITAMIN B-12) injection 1,000 mcg Admin Date 11/15/2019 Action Given Dose 1000 mcg Route Intramuscular Administered By Teresa Mitchell, Manager Wound INdo cumented in this encounter Plan of Treatment +--------+---------+ + + + | Date | Type | Specialty | Care Team | Description | +--------+---------+ + + + | 12/20/ | Office | Audiology | Elisabet Munson MS | | 2019 | Visit | | [facility] [address] | | | [address] [place] | | | | | | [place] [address] | | | | | | [phone] | | | | | | | | +--------+---------+ + + + | 12/20/ | Office | Otolaryngology | Ulysses Genao MD | | | 2019 | Visit | | [address] | | | | | | [address] [place], | | | | | | [place] [address] | | | | | | [phone] | | | | | | | | +--------+---------+ + + + | 02/15/ | Office | Internal Medicine | Alanis, | | | 2019 | Visit | | MD Petrona | | | | | | [address] [place] | | | | | | [place] [address] | | | | | | [phone] | | | | | | | [...] | | | | First dose on [facility] 10/15/17 at 1215 | | | [...]
--- OUTSIDE RECORDS SUMMARY | ~2019-11-17 | XMS | Encounter Summary ---
Demographics + + + | Address | [address] | | | [place] [address] | + + + | Home Phone [...] + + + + | 01/31/ | Telephone | [facility] | Alanis, | Foot Pain | | 2019 | | MEDICINE [address] [place] [address] | MD Petrona | | | | | [facility] | [address] [place] [address] | | | | | [place] [address] | [place] [address] | | | | | [phone] | [phone] | | | | | | | [...] | | | | | [place] [address] | | | | | | [phone] | | | | | | | | +--------+---------+ + + + | 12/20/ | Office | Otolaryngology | Ulysses Genao MD | | | 2020 | Visit | | [address] | | | | | | [address] [place], | | | | | | [place] [address] | | | | | | [phone] | | | | | | | | +--------+---------+ + + + | 02/15/ | Office | Internal Medicine | Alanis, | | | 2019 | Visit | | MD Petrona | | | | | | [address] | | | | | | [place] [address] | | | | | | [phone] | | | | | | | | +--------+---------+ + + + documented as of this encounter Visit Diagnoses Not on filedocumented in this encounter"
--- OUTSIDE RECORDS SUMMARY | ~2019-11-17 | XMS | Encounter Summary ---
Demographics + + + | Address | [address] | | | [place] [address] | + + + | Home Phone [...] + +------+ + | Care Enterprise Application Analyst Name | Role | Phone | [...] + + | 04/08/ | Office | [facility] | Alanis, | Pressure injury of | | 2017 | Visit | MEDICINE [address] | MD Petrona | right buttock, stage | | | | [facility] | [address] [place] [address] | 1 (Primary Dx); OL[place] | | | | [place] [address] | [place] [address] | (obstructive sleep | | | | [phone] | [phone] | apnea); Lower leg | | | [...] encounter Progress Notes Petrona Thapa MD - 04/08/2018 11:00 AM PDTFormatting [...] insufficiency Coccydynia COPD (chronic obstructive pulmonary disease) ([facility]) Depression Diarrhea Dumping syndrome Fall at home Fatigue fracture of vertebra Fibromyalgia Full dentures GERD (gastroesophageal reflux disease) Glaucoma Hyperparathyroidism ([facility]) Hypothyroidism IBS (irritable bowel syndrome) Idiopathic scoliosis Leg edema Low back pain Lumbar postlaminectomy syndrome Lumbar radiculopathy primarily right 01/04/2015 Meniere syndrome Migraine with aura Migraines Muscle cramping Muscle spasm Myalgia Nonalcoholic hepatosteatosis Obesity Opioid dependence ([facility]) Orthostatic hypotension OLIVER (obstructive sleep apnea) Osteoarthritis, generalized Osteopenia Osteoporosis Peripheral neuropathy Rheumatoid arthritis ([facility]) Right arm pain 01/04/2015 RLS (restless legs syndrome) S/P lumbar fusion 01/04/2015 Scoliosis Sleep apnea Spondylosis with myelopathy, lumbar region Stroke ([facility]) Syncope Tremor Type II or [...] Procedure: COLONOSCOPY; Surgeon: Luther Brito MD; Location: [facility] MEDICAL PROCEDURE UNIT DILATION AND CURETTAGE OF UTERUS ELBOW SURGERY FINGER TRIGGER RELEASE 2002 FINGER TRIGGER RELEASE 2009 GASTRIC BYPASS SURGERY 2004 HYSTERECTOMY 05/14/1980 JOINT REPLACEMENT Bilateral 2006 2007 KNEE ARTHROSCOPY 2005 LAPAROSCOPY 01/27/2015 LAPAROTOMY 2008 ROTATOR CUFF REPAIR 2005 SPINE SURGERY TONSILLECTOMY 1964 UPPER GASTROINTESTINAL ENDOSCOPY N/A 12/18/2017 Procedure: EGD; Surgeon: Luther Brito MD; Location: [facility] MEDICAL PROCEDURE UNIT CURRENT MEDICATIONS Current [...] (See Comments) Confused and questionable for seizures Qmkwtzsqor-Qlsc-Vuvwvskp Hives and Rash Cephalexin Hives Ciprofloxacin Hives [...] like to check with a provider in [place] which is closer to her home for [...] Note: Parts of this documentwere created using [employer] speech recognition software. As a r esult, there may be unintended word spelling errors. Every attempt was made to correct the dictation. Anastasia Fajardo LPN - 04/08/2018 11:00 AM PDTFormatting of this note might be different from the origi nal. Administrations This Visit cyanocobalamin (VITAMIN B-12) injection 1,000 mcg Admin Date 04/08/2018 Action Given Dose 1000 mcg Route Intramuscular Administered By Maggie Montoya LPN Vitamin B12 1000mcg given IM left deltoid. Patient tolerated injection well documented in this enc ounter Plan of Treatment +--------+---------+ + + + | Date | Type | Specialty | Care Team | Description | +--------+---------+ + + + | 12/20/ | Office | Audiology | Elisabet Munson MS | | | 2019 | Visit | | [facility] [address] | | | | | | [address] [place] | | | | | | [place], [place] [address] | | | | | | [phone] | | | | | | | | +--------+---------+ + + + | 12/20/ | Office | Otolaryngology | Ulysses Genao MD | | | 2019 | Visit | | [address] | | | | | | [address] [place], | | | | | | [place] [address] | | | | | | [phone] | | | | | | | | +--------+---------+ + + + | 02/15/ | Office | Internal Medicine | Alanis, | | | 2019 | Visit | | MD Petrona | | | | | | [address] [place] | | | | | | [place] [address] | | | | | | [phone] | | | | | | | [...]
--- OUTSIDE RECORDS SUMMARY | ~2019-11-17 | XMS | Encounter Summary ---
Demographics + + + | Address | [address] | | | [place] [address] | + + + | Home Phone [...] Providers + +------+ + | Care Gear Lapping Machine Operator Name | Role | Phone | + +------+ + | Petrona Tahpa | PCP | | | MD | [...] Rehabilitatio | bilateral | i, | [address] | | | | n | low back | [address] | [place], | | | | | pain with | MD [address] | [place] [address] | | | | | left-sided | [address] | Phone: | | | | | sciatica | [place], | [phone] | | | | | Muscle spasm | [place] | Fax: | | | | | | [address] | [phone] | | | | | Fibromyalgia | Phone: | | | | | | | [phone] | | | | | | | Fax: | | | | | | | [phone] | | +--------+ + + + + + Reason for Visit + + + | Reason | Comments | + + + | Follow-up | 2 month | + + + Encounter Details +--------+---------+ + + + | Date | Type | Department | Care Team | Description | +--------+---------+ + + + | 05/04/ | Office | [facility] | Emmy-Kamlesh, | Chronic bilateral | | 2017 | Visit | MEDICINE [address] | MD Petrona | low back pain with | | | | [address] | [address] [facility] | left-sided sciatica | | | | [place] [address] | [place] [address] | (Primary Dx); Muscle | | | | [phone] | [phone] | spasm; | | | | | [...] Instructions Patient Instructions Petrona Thapa MD - 05/04/2017 3:17 PM PST [...] are duloxetine, andmilnacipran.A third, called pregaballin, was eune d to treat nerve pain. Certain medicines [...] also help with symptoms. Date Last Reviewed: 07/29/201519993698-2126 [employer] [place] [address], [place] [address]. All righ ts reserved. This information is not intended as a substitute for professional medical care. Always follow your healthcare professional's instructions. documented in this encounter Progress Notes Petrona Thapa MD - 05/04/2017 2:30 PM PSTFormatting of this note might be d ifferent from the original. CHIEF COMPLAINT Chief Complaint Patient presents with Follow-up 2 month HPI Belinda Meehan is a 57 y.o. y/o female who presents today for several issues: She states she's been hurting a lot lately despite receiving pharmacotherapy for the pain c linic would Butrans at high-dose and gabapentin 1200 [...] insufficiency Coccydynia COPD (chronic obstructive pulmonary disease) ([facility]) Depression Diarrhea Dumping syndrome Fatigue fracture of vertebra Fibromyalgia Glaucoma Hyperparathyroidism ([facility]) Hypothyroidism IBS (irritable bowel syndrome) Idiopathic scoliosis Leg edema Lumbar postlaminectomy syndrome Lumbar radiculopathy primarily right 01/04/2015 Meniere syndrome Migraines Muscle cramping Muscle spasm Myalgia Nonalcoholic hepatosteatosis Obesity Opiate dependence ([facility]) Orthostatic hypotension OLIVER (obstructive sleep apnea) Osteoarthritis, generalized Osteopenia Osteoporosis Peripheral neuropathy ([facility]) Rheumatoid arthritis ([facility]) Right arm pain 01/04/2015 RLS (restless legs syndrome) S/P lumbar fusion 01/04/2015 Scoliosis Spondylosis with myelopathy, lumbar region Stroke ([facility]) Syncope Tremor Type II or unspecified type [...] LUMPECTOMY Left 2001 CARPAL TUNNEL RELEASE 2001 CHOLECYSTECTOMY 2003 FINGER TRIGGER RELEASE 2002 FINGER TRIGGER RELEASE [...] 1,000 mcg 1,000 mcg Intramuscular Q30 Days [facility] Maddie Thapa MD 1,000 mcg at 05/04/17 1713 ALLERGIES Allergies Allergen Reactions Codeine Sulfate Nausea Only Levofloxacin Hives, Itching and Rash Amitriptyline Hcl Other (See Comments) Confused and questionable for seizures Zjtaotlisv-Stfw-Jsrsghbn Cephalexin Hives Ketorolac Hives Morphine Swelling Tramadol Hcl Nausea Only Ikrnmouexj-Ljne-Iqcvirqb Hives and Rash Ciprofloxacin Hives and Rash [...] back pain with left-sided sciatica - * [facility] - AMB Referral; Future - CBC with Differential; Future - Comprehensive Metabolic Panel; Future - TSH; Future - CK Total; Future - C-Reactive Protein; Future 2. Muscle spasm - * [facility] - [facility] Referral; Future - CBC with Differential; Future - Comprehensive Metabolic Panel; Future - TSH; Future - CK Total; Future - C-Reactive Protein; Future - methocarbamol (ROBAXIN) 750 mg tablet; take 1 tablet by mouth twice a day Dispense: 60 t ablet; Refill: 3 3. Fibromyalgia - * [facility] - [facility] Referral; Future - CBC with Differential; Future - Comprehensive Metabolic Panel; Future - TSH; Future - CK Total; Future - C-Reactive Protein; Future 4. Left hip pain - XR Hip Left 2-3 Views; Future FOLLOW-UP No Follow-up on file. Note: Parts of this documentwere created using [employer] speech recognition software. As a r esult, [...] | | | | | [place] [address] | | | | | | [phone] | | | | | | | | +--------+---------+ + + + | 12/20/ | Office | Otolaryngology | Ulysses Genao MD | | | 2019 | Visit | | [address] | | | | | | [address] [place], | | | | | | [place] [address] | | | | | | [phone] | | | | | | | | +--------+---------+ + + + | 02/15/ | Office | Internal Medicine | Alanis, | | | 2019 | Visit | | MD Petrona | | | | | | [address] [place] | | | | | | [place] [address] | | | | | | [phone] | | | | | | | [...] CRP | 0.48 | <8.00 mg/L | [facility] | | | | | [...] [address] | [place] | [phone] | | [facility] | | [address] | | | - LABORATORY | | | | + + + + + CK Total (05/04/2017 3:42 PM PST) + +-------+ + + + | Component | Value | Ref Range | Performed | Pathologist | | | | | At | Signature | + +-------+ + + + | CK TOTAL | 168 | 22 - 269 U/L | [facility] | | | | | [...] [address] | [place] | [phone] | | [facility] | | [address] | | | - LABORATORY | | [...] samples are screened | uIU/mL | [facility] | | | | using a 2nd [...] + | [address] | [address] | [place] | [phone] | | [facility] | | [address] | | | - LABORATORY | | [...] mL/min/1.73m2 | [facility] | | | CH[facility]AN | RATE,ESTIMATED | | MEDICAL | | | | mL/min/1.57o5Pmlf than | | CENTER - | | [...] [address] | [place] | [phone] | | [facility] | | [address] | | | - LABORATORY | | | | + + + + + CBC with Differential (05/04/2017 3:42 PM PST) + + + + + + | Component | Value | Ref Range | Performed | Pathologist | | | | | At | Signature | + + + + + + | WBC | 5.7 | 4.0 - 11.0 K/uL | [facility] | | | | | | [facility] | | | | | | MEDICAL | | | | | | CENTER - | | | | | | LABORATORY | | + + + + + + | RBC | 4.36 | 3.70 - 5.20 | [...] | | Eosinophils | | | [facility] | | | | | | MEDICAL [...] [address] | [place] | [phone] | | [facility] | | [address] | | | - LABORATORY | | [...]
--- OUTSIDE RECORDS SUMMARY | ~2019-11-17 | XMS | Encounter Summary ---
Demographics + + + | Address | [address] | | | [place] [address] | + + + | Home Phone [...] Team Providers + +------+ + | Care Military Nurse Name | Role | Phone | [...] [id number] | | | | | | [place], [place] | | | | | | [address] | | | | | | [phone] | | | +--------+ + + + [...]
--- OUTSIDE RECORDS SUMMARY | ~2019-11-17 | XMS | Encounter Summary ---
Demographics + + + | Address | [address] | | | [place] [address] | + + + | Home Phone [...] +------+ + | Care Geographic Information Systems Engineer Name | Role | Phone [...] 09/09/ | Office | [facility] | Lukasz Charles, | Major Depressive | | 2006 | Visit | [address] | PhD [address] | Disorder, Recurrent | | | | Mailcode: [id number] | [place], [place] | Episode, Moderate | | | [facility] | [address] | (HCC); DJD | | | | and Healing, | [phone] | (Degenerative Joint | | | | Building | | Disease) of Left | | | | Floor [place], [place] | | Knee; Neck Pain; | | | | [address] | | Herniated Lumbar | | | | [phone] | | Intervertebral Disc | | | [...] is making an effort to improve. Diagnosis: Barney I: 1. (296.32) Major depressive disorder, recurrent, moderate. 2. (309.24) Adjustment disorder with anxiety. 3. 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 Barney II: Deferred Barney III: abdominal pain, migraine headache, low back pain. Barney IV: low finances Barney V: GAF 50 Plan: Return in 2 weeks. Check preparation for niece's visit, [employer], pacing, relaxation, ac tivity, distraction. Check managing Pain... book. Continue cognitive/behavioral therapy. Total time spent with patient was approximately 45 minutes. LUKASZ CHARLES PHD [facility] [address] [facility] [address] [place] [address] documented in this encount er Plan of Treatment + + +--------+ + + | Name | Type | Priori | Associated Diagnoses | Order Schedule | | | | ty | | | + + +--------+ + + | [facility] PSYCHOTHERPY, | Procedures | Routin | Major [...]
--- OUTSIDE RECORDS SUMMARY | ~2019-11-17 | XMS | Encounter Summary ---
Demographics + + + | Address | [address] | | | [place] [address] | + + + | Home Phone [...] Providers + +------+ + | Care Mail Opener Name | Role | Phone | [...] + + | 02/25/ | Telephone | [facility] | Alanis, | Pain | | 2019 | | MEDICINE [address] [place] [address] | MD Petrona | | | | | [address] | [address] [place] [address] | | | | | [place] [address] | [place] [address] | | | | | [phone] | [phone] | | | | | | | [...] | | | | | [place] [address] | | | | | | [phone] | | | | | | | | +--------+---------+ + + + | 12/20/ | Office | Otolaryngology | Ulysses Genao MD | | | 2019 | Visit | | [address] | | | | | | [address] [place], | | | | | | [place] [address] | | | | | | [phone] | | | | | | | | +--------+---------+ + + + | 02/15/ | Office | Internal Medicine | Alansi, | | | 2019 | Visit | | MD Petrona | | | | | | [address] [place] | | | | | | [place] [address] | | | | | | [phone] | | | | | | | | +--------+---------+ + + + documented as of this encounter Visit Diagnoses Not on filedocumented in this encounter"
--- OUTSIDE RECORDS SUMMARY | ~2019-11-17 | XMS | Encounter Summary ---
Demographics + + + | Address | [address] | | | [place] [address] | + + + | Home Phone [...] Team Providers + +------+ + | Care Celery Tier Name | Role | Phone | + [...] | | | | y, acute | Sulaiman-Gily | [address] | | | | | Acute | , MD [address] | [address] | | | | | midline low | [address] | [place] | | | | | back pain | [place], | [address] | | | | | with | [place] | Phone: | | | | | bilateral | [address] | [phone] | | | | | sciatica | Phone: | Fax: | | | | | Procedures | [phone] | [phone] | | | | | MRI Lumbar | Fax: | | | | | | Spine wo | [phone] | | | | | | Contrast [...] + + | 05/17/ | Office | [facility] | Emmy-Tacliffordti, | Lumbar | | 2018 | Visit | MEDICINE [address] [place] [address] | MD Petrona | radiculopathy, acute | | | | [address] | [address] [place] [address] | (Primary Dx); Acute | | | | [place] [address] | [place] [address] | midline low back | | | | [phone] | [phone] | pain with bilateral | | | [...] (chronic obstructive pulmonary disease) ([facility]) Depression Diarrhea Dumping syndrome Fall at home Fatigue fracture of vertebra Fibromyalgia Full dentures GERD (gastroesophageal reflux disease) Glaucoma Hyperparathyroidism ([facility]) Hypothyroidism IBS (irritable bowel syndrome) Idiopathic [...] Procedure: COLONOSCOPY; Surgeon: Luther Brito MD; Location: [facility] MEDICAL PROCEDURE UNIT DILATION AND CURETTAGE OF UTERUS ELBOW SURGERY FINGER TRIGGER RELEASE 2002 FINGER TRIGGER RELEASE 2010 GASTRIC BYPASS SURGERY 2004 HYSTERECTOMY 05/14/1980 JOINT REPLACEMENT Bilateral 2007 2008 KNEE ARTHROSCOPY 2005 LAPAROSCOPY 01/27/2015 LAPAROTOMY 2008 ROTATOR CUFF REPAIR 2005 SPINE SURGERY TONSILLECTOMY 1964 UPPER GASTROINTESTINAL ENDOSCOPY N/A 12/18/2017 Procedure: EGD; Surgeon: Luther Brito MD; Location: [facility] MEDICAL PROCEDURE UNIT CURRENT MEDICATIONS [...] ours as needed for Pain. Incontinence Supplies [facility] As directed 100 each 11 levothyroxine (SYNTHROID) [...] (See Comments) Confused and questionable for seizures Kxzuzdvtwh-Lvsv-Nbacyife Hives and Rash Cephalexin Hives Ciprofloxacin Hives [...] Note: Parts of this documentwere created using [employer] speech recognition software. As a r esult, [...] | [facility] [address] | | | | | [address] [place] | | | | | | [place] [address] | | | | | | [phone] | | | | | | | | +--------+---------+ + + + | 12/20/ | Office | Otolaryngology | Ulysses Genao MD | | | 2019 | Visit | | [address] | | | | | | [address] [place], | | | | | | [place] [address] | | | | | | [phone] | | | | | | | | +--------+---------+ + + + | 02/15/ | Office | Internal Medicine | Alanis, | | | 2019 | Visit | | MD Petrona | | | | | | [address] [place] | | | | | | [place] [address] | | | | | | [phone] | | | | | | | [...] | | | First dose on [facility] 10/15/17 at 1215 | | | [...]
--- OUTSIDE RECORDS SUMMARY | ~2019-11-17 | XMS | Encounter Summary ---
Demographics + + + | Address | [address] | | | [place] [address] | + + + | Home Phone [...] Team Providers + +------+ + | Care Dietary Director Name | Role | Phone | [...] PHYSIATRY [address] | MD [address] | | | | | [address] | [place] | | | | | [place], [place] | [address] | | | | | [address] | | | | | | [phone] | | | +--------+ + + + [...] [facility] [address] | | | | | | [address] [place] | | | | | | [place] [address] | | | | | | [phone] | | | | | | | | +--------+---------+ + + + | 12/20/ | Office | Otolaryngology | Ulysses Genao MD | | | 2019 | Visit | | [address] | | | | | | [address] [place], | | | | | | [place] [address] | | | | | | [phone] | | | | | | | | +--------+---------+ + + + | 02/15/ | Office | Internal Medicine | Alanis, | | | 2019 | Visit | | MD Petrona | | | | | | [address] [place] | | | | | | [place] [address] | | | | | | [phone] | | | | | | | | +--------+---------+ + + + documented as of this encounter Visit Diagnoses Not on filedocumented in this encounter"
--- OUTSIDE RECORDS SUMMARY | ~2019-11-17 | XMS | Encounter Summary ---
Demographics + + + | Address | [address] | | | [place] [address] | + + + | Home Phone [...] Team Providers + +------+ + | Care Swahili Teacher Name | Role | Phone | [...] + + | 06/17/ | Office | [facility] | Emmy-Kamlesh, | Migraine without | | 2019 | Visit | MEDICINE [address] [place] [address] | MD Petrona | aura and without | | | | [address] [place] | [address] [place] [address] | status migrainosus, | | | | [place] [address] | [place] [address] | not intractable | | | | [phone] | [phone] | (Primary Dx); | | | | [...] her lower extremities. [facility] showing chronic d egenerative changes and disc bulges in her lower back with no significant stenosis or other acute indications for neurosurgery. Findings were similar to a previous MRI from a few year s ago. She did have back surgery in [facility] on a number of years ago. She [...] Coccydynia COPD (chronic obstructive pulmonary disease) ([facility]) Depression Diarrhea Dumping syndrome Fall at home Fatigue fracture of vertebra Fibromyalgia Full dentures GERD (gastroesophageal reflux disease) Glaucoma Hyperparathyroidism ([facility]) Hypothyroidism IBS (irritable bowel syndrome) Idiopathic scoliosis Leg edema Low back pain Lumbar postlaminectomy syndrome Lumbar radiculopathy primarily right 01/04/2015 Meniere syndrome Migraine with aura Migraines Muscle cramping Muscle spasm Myalgia Nonalcoholic hepatosteatosis Obesity Opioid dependence ([facility]) Orthostatic hypotension OLIVER (obstructive sleep apnea) Osteoarthritis, generalized Osteopenia Osteoporosis Peripheral neuropathy Rheumatoid arthritis ([facility]) Right arm pain 01/04/2015 RLS (restless legs syndrome) S/P lumbar fusion 01/04/2015 Scoliosis Sleep apnea Spondylosis with myelopathy, lumbar region Stroke ([facility]) Syncope Tremor Type II or unspecified [...] (See Comments) Confused and questionable for seizures Celcvbtlea-Alxq-Mrbgaptg Hives and Rash Cephalexin Hives Ciprofloxacin Hives [...] - We'll refer for physical therapy in [place], including aquatic therapy. FOLLOW-UP Return in about 3 months (around 09/15/2018). Note: Parts of this documentwere created using [employer] speech recognition software. As a r esult, there may be unintended word spelling errors. Every attempt was made to correct the dictation. Shanta Trevino Manager Security - 06/17/2018 10:45 AM PSTFormatting of this note might be diff erent from the original. Administrations This Visit cyanocobalamin (VITAMIN B-12) injection 1,000 mcg Admin Date 06/17/2018 Action Given Dose 1000 mcg Route Intramuscular Administered By Shanta Whaley Manager Security Pt tolerated B-12 injection well. documented in this encounter Plan of Treatment +--------+---------+ + + + | Date | Type | Specialty | Care Team | Description | +--------+---------+ + + + | 12/20/ | Office | Audiology | Elisabet Munson, MS | | | 2019 | Visit | | [facility] [address] | | | | | | [address] [place] | | | | | | [place] [address] | | | | | | [phone] | | | | | | | | +--------+---------+ + + + | 12/20/ | Office | Otolaryngology | Ulysses Genao MD | | | 2019 | Visit | | [address] | | | | | | [address] [place], | | | | | | [place] [address] | | | | | | [phone] | | | | | | | | +--------+---------+ + + + | 02/15/ | Office | Internal Medicine | Alanis, | | | 2019 | Visit | | MD Petrona | | | | | | [address] [place] | | | | | | [place] [address] | | | | | | [phone] | | | | | | | [...]
--- OUTSIDE RECORDS SUMMARY | ~2019-11-17 | XMS | Encounter Summary ---
Demographics + + + | Address | [address] | | | [place] [address] | + + + | Home Phone [...] Providers + +------+ + | Care Security System Analyst Name | Role | Phone | [...] + | 01/20/ | Refill | [facility] | Alanis, | Medication Refill | | 2017 | | MEDICINE [address] [place] [address] | MD Petrona | | | | | [facility] | [address] [place] [address] | | | | | [place] [address] | [place] [address] | | | | | [phone] | [phone] | | | | | | | [...] | Visit | | [facility] [address] | | | | | | [address] [place] | | | | | | [place] [address] | | | | | | [phone] | | | | | | | | +--------+---------+ + + + | 12/20/ | Office | Otolaryngology | Ulysses Genao MD | | | 2019 | Visit | | [address] | | | | | | [address] [place], | | | | | | [place] [address] | | | | | | [phone] | | | | | | | | +--------+---------+ + + + | 02/15/ | Office | Internal Medicine | Alanis, | | | 2019 | Visit | | MD Petrona | | | | | | [address] [place] [address] [place] | | | | | | [place] [address] | | | | | | [phone] | | | | | | | | +--------+---------+ + + + documented as of this encounter Visit Diagnoses Not on filedocumented in this encounter"
--- OUTSIDE RECORDS SUMMARY | ~2019-11-17 | XMS | Encounter Summary ---
Demographics + + + | Address | [address] | | | [place] [address] | + + + | Home Phone [...] Providers + +------+ + | Care Nurses Assistant Name | Role | Phone | + +------+ + | Sulaiman Carrera MD | PCP | | + +------+ + Encounter Details +--------+ + + + + | Date | Type | Department | Care Team | Description | +--------+ + + + + | 02/08/ | Telephone | Dig[facility]ive Health | Chris Padgett, | | | 2008 | | [place] [address] | [address] [facility] | | | | | Bethanie Mailcode: CH4S | [address] | | | | | [facility] | [place], [place] | | | | | and Healing, | [address] | | | | | [place] [address], 6th | [phone] | | | | | Floor [place], [place] | | | | | | [address] | | | | | | [phone] | | | +--------+ + + + [...]
--- OUTSIDE RECORDS SUMMARY | ~2019-11-17 | XMS | Encounter Summary ---
Demographics + + + | Address | [address] | | | [place] [address] | + + + | Home Phone [...] Team Providers + +------+ + | Care Ceramic Design Engineer Name | Role | Phone [...] Rd | | | | | | [place], [place] | | | | | | [address] | | | +--------+ + + + [...] as of this encounter Progress Notes Interface, Police Patrol Lieutenant In - 03/12/2007 2:28 AM PDT [id number] GEOVANNI Barnes [id number] Clinic Date: 02/23/2007 Clinic: Endocrinology Subjective: Belinda [...] performed next Thursday, March 01, 2007, in [place]. The right knee will be replaced in [...] patch 25 mcg for 72 hours. 2. [place]/acetaminophen 10 mg/325 mg, 1 every 6 hours [...] months. Beto Meeks M.D. PD / HS [id number] / [id number] / [id number] / [id number] cc: Pedrito Gutierrez M.D. [address] [place] [address] Chris Padgett M.D. Department of Surgery, [facility] Electronically signed by Beto Meeks 03-11-2007 04:41:13 PM nterface, Police Patrol Lieutenant In - 03/12/2007 2:28 AM PDT [id number] GEOVANNI SKELTON J [id number] Clinic Date: 02/23/2007 Clinic: Endocrinology Belinda Meehan [...] her primary care provider, Dr. Gutierrez in [place]. She had a followup eye exam today, [...] replacement next Thursday (in 6 days) in [place], [place]. The right knee replacement tentatively will [...] as needed. Beto Meeks M.D. / SHARIF [id number] / [id number] / [id number] / [id number] cc: Pedrito Gutierrez M.D. [address] [place] [address] Joanna Arshad M.D. Electronically signed by Beto Meeks 03-11-2007 04:41:08 PM documented in this encounter Plan of Treatment Not on filedocumented as of this encounter Visit Diagnoses Not on filedocumented in this encounter"
--- OUTSIDE RECORDS SUMMARY | ~2019-11-17 | XMS | Encounter Summary ---
Demographics + + + | Address | [address] | | | [place] [address] | + + + | Home Phone [...] Providers + +------+ + | Care Materials Engineering Technician Name | Role | Phone [...] | Osteopenia | MD Beto | Density [facility] | | | | | Procedures | [address] | [address] | | | | | CONSULT TO | Ave | [address] | | | | | BONE | [place], [place] | Rd Mailcode: | | | | | DENSITOMETRY | [address] | [address] | | | | | | Phone: | [address] | | | | | | [phone] | [place], [place] | | | | | | Fax: | [address] | | | | | | [phone] | Phone: | | | | | | | [phone] | | | | | | | Fax: | | | | | | | [phone] | +--------+--------+ + + + + Encounter Details +--------+ + + + + | Date | Type | Department | Care Team | Description | +--------+ + + + + | 07/24/ | Hospital | Endocrinology, | Sjh, Bmd Dexa | | | 2008 | Encounter | Diabetes and | [address] | | | | | Clinical Nutrition | [facility], | | | | | [address] | [place] [address] | | | | | [facility] Mailcode: | | | | | | [address] | | | | | | [place], [place] | | | | | | [address] | | | | | | [phone] | | | +--------+ + + + [...] from the Results section by P Byron [[id number]] on | | | 04/17/2009 at 5:16 PM (File: [id number]) | | + + + BONE DENSITOMETRY [...]
--- OUTSIDE RECORDS SUMMARY | ~2019-11-17 | XMS | Encounter Summary ---
Demographics + + + | Address | [address] | | | [place] [address] | + + + | Home Phone [...] Providers + +------+ + | Care Rehabilitation Assistant Name | Role | Phone | [...]
--- OUTSIDE RECORDS SUMMARY | ~2019-11-17 | XMS | Encounter Summary ---
Demographics + + + | Address | [address] | | | [place] [address] | + + + | Home Phone [...] Team Providers + +------+ + | Care Remarketing Rep Name | Role | Phone | + +------+ + | Maria Esther Cintron MD | PCP | | + +------+ + Encounter Details +--------+ + + + + | Date | Type | Department | Care Team | Description | +--------+ + + + + | 09/21/ | Telephone | Dig[facility]ive Health | Chris Padgett, | | | 2008 | | [place] [address] | [address] [facility] | | | | | Bethanie Mailcode: CH4S | [address] | | | | | Center for Health | [place], [place] | | | | | and Healing, | [address] | | | | | Building , 6th | [phone] | | | | | Floor [place], [place] | | | | | | [address] | | | | | | [phone] | | | +--------+ + + + [...]
--- OUTSIDE RECORDS SUMMARY | ~2019-11-17 | XMS | Encounter Summary ---
Demographics + + + | Address | [address] | | | [place] [address] | + + + | Home Phone [...] Team Providers + +------+ + | Care Embedded Software Manager Name | Role | Phone | + +------+ + | Petrona Thapa | PCP | | | MD | | | + +------+ + Reason for Visit + + + | Reason | Comments | + + + | Results, Imaging | outside imaging report from [facility] | + + + Encounter Details +--------+ + + + + | Date | Type | Department | Care Team | Description | +--------+ + + + + | 03/02/ | Telephone | [facility] | Alanis, | Results, Imaging | | 2019 | | MEDICINE [address] | MD Petrona | (outside imaging | | | | [address] [place] | [address] [facility] | report from St. | | | | [place] [address] | [place] [address] | [facility]) | | | | [phone] | [phone] | | | | | | | [...] | | | | | [place] [address] | | | | | | [phone] | | | | | | | | +--------+---------+ + + + | 12/20/ | Office | Otolaryngology | Ulysses Genao MD | | | 2019 | Visit | | [address] | | | | | | [address] [place], | | | | | | [place] [address] | | | | | | [phone] | | | | | | | | +--------+---------+ + + + | 02/15/ | Office | Internal Medicine | Alanis, | | | 2019 | Visit | | MD Petrona | | | | | | [address] | | | | | | [place] [address] | | | | | | [phone] | | | | | | | | +--------+---------+ + + + documented as of this encounter Visit Diagnoses Not on filedocumented in this encounter"
--- OUTSIDE RECORDS SUMMARY | ~2019-11-17 | XMS | Encounter Summary ---
Demographics + + + | Address | [address] | | | [place] [address] | + + + | Home Phone [...] Providers + +------+ + | Care Laborer Tin Can Name | Role | Phone | + [...] | | | | | | | [place] for | | | | | | | Health and | | | | | | | Healing, | | | | | | | Building [address] | | | | | | | [place], [place] | | | | | | | [address] | | | | | | | Phone: | | | | | | | [phone] | | | | | | | Fax: | | | | | | | [phone] | +--------+--------+ + + + + Encounter Details +--------+---------+ + + + | Date | Type | Department | Care Team | Description | +--------+---------+ + + + | 01/10/ | Office | Digestive Health | Chris Padgett, | Status post | | 2009 | Visit | Center [address] | [address] [facility] | bariatric surgery | | | | Ave Mailcode: CH4S | [address] | (Primary Dx) | | | | [facility] | [place], [place] | | | | | and [place], | [address] | | | | | [facility] | [phone] | | | | | Floor [place], [place] | | | | | | [address] | | | | | | [phone] | | | +--------+---------+ + + + [...] and I asked her to see a head orthopedic team physician where she lives. Will obtain CBC and [...]
--- OUTSIDE RECORDS SUMMARY | ~2019-11-17 | XMS | Encounter Summary ---
Demographics + + + | Address | [address] | | | [place] [address] | + + + | Home Phone [...] Providers + +------+ + | Care Infrastructure Engineer Name | Role | Phone | + +------+ + | Petrona Thapa | PCP | | | MD | | | + +------+ + Encounter Details +--------+---------+ + + + | Date | Type | Department | Care Team | Description | +--------+---------+ + + + | 12/20/ | Office | [facility] | Elisabet Munson MS | Sensorineural | | 2019 | Visit | AUDIOLOGY AND | CCC-A [address] | hearing loss (SNHL) | | | | [facility] SERVICES | [address] [place] | of both ears | | | | [address] | [place] [address] | (Primary Dx); | | | | [address] [place] | [phone] | Dizziness and | | | | [place] [address] | | giddiness | | | | [phone] | | | +--------+---------+ + + + [...] | 12/20/ Office | Audiology | Elisabet Munosn MS | | | 2019 | Visit | | C[place]ANDRA [address] | | | | | | [address] | | | | | | [place] [address] | | | | | | [phone] | | | | | | | | +--------+---------+ + + + | 12/20/ | Office | Otolaryngology | Ulysses Genao MD | | | 2019 | Visit | | [address] | | | | | | [address] [place], | | | | | | [place] [address] | | | | | | [phone] | | | | | | | | +--------+---------+ + + + | 02/15/ | Office | Internal Medicine | Alanis, | | | 2019 | Visit | | MD Petrona | | | | | | [address] [place] | | | | | | [place] [address] | | | | | | [phone] | | | | | | | [...]
--- OUTSIDE RECORDS SUMMARY | ~2019-11-17 | XMS | Encounter Summary ---
Demographics + + + | Address | [address] | | | [place] [address] | + + + | Home Phone [...] Providers + +------+ + | Care Metal Furniture Assembler Name | Role | Phone | [...] | | | Metabolism | bypass | [address] | [address] | | | | | Hypovitamino | [address], | Ave | | | | | sis D B12 | [address] | [place], [place] | | | | | nutritional | [place], [place] | [address] | | | | | deficiency | [address] | Phone: | | | | | Other | Phone: | [phone] | | | | | protein-jose manuel | [phone] | Fax: | | | | | nick | Fax: | [phone] | | | | | malnutrition | [phone] | | | | | | Weight | | | | | | | gain | | | | | | | Procedures | | | | | | | CONSULT TO | | | | | | | ENDO | | | | | | | [address] | | | | | | | [address] | | | +--------+--------+ + + + [...] | | | [facility] | [place], [place] | Metabolic syndrome X | | | | Pavilion [address] | [address] | 250.80; Essential | | | | [address] | [phone] | hypertension 401.9; | | | | Physician's Pavilion | | IGT (impaired | | | | Physician's | | glucose tolerance) | | | | Pavilion [place], | | | | | | [place] [address] | | | | | | [phone] | | | +--------+---------+ + + + [...] month in the pain center her at [facility], so she is hoping to find [...] Hives Mainly in the legs Clindamycin Codeine Irjrbaq-Hzdejqonjf-Fmk-Caff Balance problems Fioricet W/Codeine (Keawamfydh-Ogynhxranl-Txt-Cod) Keflex (Cephalexin) Morphine IM ( only in [...] U/L 41 ANION GAP 8 VITAMIN B12, [id number] pg/ml >2000 (H) HEMOGLOBIN A1C <=5.6 % [...] SERUM 15.0-85.0 pg/ml 222.9 (H) VITAMIN B12, [id number] pg/ml > 2000 HEMOGLOBIN A1C <=5.6 % [...]
--- OUTSIDE RECORDS SUMMARY | ~2019-11-17 | XMS | Encounter Summary ---
Demographics + + + | Address | [address] | | | [place] [address] | + + + | Home Phone [...] Team Providers + +------+ + | Care Awning Maker Name | Role | Phone | [...] | | | | Mailcode: L223A | [place], [place] | | | | | Physician[facility] Pavilion | [address] | | | | | [address] [place], [place] | [phone] | | | | | [address] | | | | | | [phone] | | | +--------+ + + + [...]
--- OUTSIDE RECORDS SUMMARY | ~2019-11-17 | XMS | Encounter Summary ---
Demographics + + + | Address | [address] | | | [place] [address] | + + + | Home Phone [...] Team Providers + +------+ + | Care Hall Porter Name | Role | Phone | [...] | Diagnoses | Rileyacle, | Fili Pt Golf Coach | | | | Therapy | Muscle | NIHARIKA Jean | Chh1 [address] | | | | | strain Neck | [address] | | | | | pain | [address] | Mailcode: | | | | | Fibromyalgia | [place], [place] | CH3P Center | | | | | Radicular | [address] | for Health | | | | | pain in left | | and Healing, | | | | | arm | | [address] | | | | | Procedures | | [place], [place] | | | | | PHYSICAL | | [address] | | | | | THERAPY | | Phone: | | | | | REFERRAL | | [phone] | +--------+--------+ + + + + Reason for Visit + + + | Reason | Comments | + + + | LBP - Low back pain | | + + + Encounter Details +--------+---------+ + + + | Date | Type | Department | Care Team | Description | +--------+---------+ + + + | 08/22/ | Office | [facility] | Delfina Lambert, | Muscle Strain hips; | | 2008 | Visit | Pain Center at | ANP | Fibromyalgia; Neck | | | | [facility] | | Pain; Radicular Pain | | | | [address] | | in Left Arm; | | | | Mailcode: CH15P | | Dizziness; Black | | | | [place] for [facility] | | Out; Falling | | | | and Healing, | |Falling | | | | Building | | | | | | Floor [place], [place] | | | | | | [address] | | | | | | [phone] | | | +--------+---------+ + + + [...] visit Schedule MRI of the neck at [facility] Use your TENS for the muscle pain Schedule follow up after the MRI to review results documented in this encounter Progress Notes Delfina Lambert ANP - 08/22/2008 10:22 AM PDTFormatting of this note might be different fr om the original. 08/22/2008 Belinda Meehan is a 48 y.o. female [facility] Comprehensive Pain Center Return Visit [...] drawing has be completed, which I reviewed. [facility] Brief Pain Inventory: (ten= worst possible [...] or as needed 4. [place] MD Wed Aug 09, 2008 These results are okay. Her [...] appointment to see lumbar spine surgery in [place] on . Psychiatric History: depressed mood, sleep [...] eye Sleep Apnea Fibromyalgia Intervertebral Disc Herniation 10/17/07 Reduced Vision Pneumonia Abdominal Pain Hx of [...] 278 01/18 Paniculectomy Hx lumbar fusion 05/2008 L5-U3bdtmss with bone spur removals Family History Problem [...] to get the MRI results befor planning [facility] care. Belinda was compliant with all aspects [...] [facility] Mail code CH 4P [facility] and [address] [address] Ailyn Foster Malissa - 03/2009 9:30 AM PDTCMA History: PMH/PSH/SH/FH [...] | | | | | | NANETTE GOODSON, | | | | | | MNajmaSTATUS [...]
--- OUTSIDE RECORDS SUMMARY | ~2019-11-17 | XMS | Encounter Summary ---
Demographics + + + | Address | [address] | | | [place] [address] | + + + | Home Phone [...] Team Providers + +------+ + | Care Shot Coat Tender Name | Role | Phone | [...] | ANP | | | | | [facility] | | | | | | [address] [place] | | | | | | Mailcode: CH15P | | | | | | [place] for [facility] | | | | | | and Healing, | | | | | | Building | | | | | | Floor [place], [place] | | | | | | [address] | | | | | | [phone] | | | +--------+ + + + [...]
--- OUTSIDE RECORDS SUMMARY | ~2019-11-17 | XMS | Encounter Summary ---
Demographics + + + | Address | [address] | | | [place] [address] | + + + | Home Phone [...] Team Providers + +------+ + | Care Surgical Services Tech Name | Role | Phone | [...] 07/30/ | Office | Pain Center at [facility] | Lukasz Charles, | Major Depressive | | 2006 | Visit | [address] | PhD [address] | Disorder, Recurrent | | | | Mailcode: [facility] | [place], [place] | Episode, Moderate; | | | | Center for Health | [address] | Chronic Abdominal | | | | and Healing, | [phone] | Pain; Herniated | | | | Building | | Lumbar | | | | Floor [place], [place] | | Intervertebral Disc | | | | [address] | | L4-5; 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 Ms. Meehan has depression and frustration. She is having some difficulty increasing her a ctivity level but she is putting forth effort. She appears to have good insight. Diagnosis: Hensley I: 1. (296.32) Major depressive disorder, recurrent, moderate. 2. (309.24) Adjustment disorder with anxiety. 3. 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 Hensley II: Deferred Hensley III: abdominal pain, migraine headache, low back pain. Hensley IV: low finances Hensley V: GAF 50 Plan: Return in 2 weeks. Check pacing, relaxation, activity. Check trip to [place]. Check mood. Continue cognitive/behavioral therapy. Total time spent with patient was approximately 45 minutes. LUKASZ CHARLES PHD [facility] [address] [facility] And [address] [address] documented in this encount er Plan of Treatment + + +--------+ + + | Name | Type | Priori | Associated Diagnoses | Order Schedule | | | | ty | | | + + +--------+ + + | [facility], | Procedures | Routin | Major Depressive | Ordered: 07/31/2006 | | OFFICE (45-23) | | e | Disorder, Recurrent | [...]
--- OUTSIDE RECORDS SUMMARY | ~2019-11-17 | XMS | Encounter Summary ---
Demographics + + + | Address | [address] | | | [place] [address] | + + + | Home Phone [...] Providers + +------+ + | Care Rivet Heater Name | Role | Phone | [...] [address] | | | | | [place] [facility] | [place], [place] | | | | | [address] | [address] | | | | | [address] | [phone] | | | | | Physician's Pavilion | | | | | | Physician's | | | | | | Pavilion [place], | | | | | | [place] [address] | | | | | | [phone] | | | +--------+--------+ + + + [...]
--- OUTSIDE RECORDS SUMMARY | ~2019-11-17 | XMS | Encounter Summary ---
Demographics + + + | Address | [address] | | | [place] [address] | + + + | Home Phone [...] Team Providers + +------+ + | Care Screen Printer Helper Name | Role | Phone | [...] [id number] | | | | | | [place], [place] | | | | | | [address] | | | | | | [phone] | | | +--------+ + + + [...]
--- OUTSIDE RECORDS SUMMARY | ~2019-11-17 | XMS | Encounter Summary ---
Demographics + + + | Address | [address] | | | [place] [address] | + + + | Home Phone [...] Team Providers + +------+ + | Care Climatology Professor Name | Role | Phone | [...] | | 2006 | | Faculty at [facility] | [address] | | | | | for [facility] and | [place], [place] | | | | | Healing [address] | [address] | | | | | Ave Mailcode: | [phone] | | | | | CH12A [facility] | | | | | | Health and Healing, | | | | | | [facility] | | | | | | [place], [place] | | | | | | [address] | | | | | | [phone] | | | +--------+ + + + [...]
--- OUTSIDE RECORDS SUMMARY | ~2019-11-17 | XMS | Encounter Summary ---
Demographics + + + | Address | [address] | | | [place] [address] | + + + | Home Phone [...] Providers + +------+ + | Care Power Grader Operator Name | Role | Phone | [...] + + | 08/03/ | Telephone | [facility] | Alanis, | Personal Problem | | 2019 | | MEDICINE [address] | MD Petrona | (Rash in private | | | | [facility] | [address] [facility] | [facility]) | | | | [place] [address] | [place] [address] | | | | | [phone] | [phone] | | | | | | | [...] | 2019 | Visit | | [facility] [address] | | | | | | [address] | | | | | | [place] [address] | | | | | | [phone] | | | | | | | | +--------+---------+ + + + | 12/20/ | Office | Otolaryngology | Ulysses Genao MD | | | 2019 | Visit | | [address] | | | | | | [address] [place] [address] | | | | | | [place] [address] | | | | | | [phone] | | | | | | | | +--------+---------+ + + + | 02/15/ | Office | Internal Medicine | Alanis, | | | 2019 | Visit | | MD Petrona | | | | | | [address] [place] | | | | | | [place] [address] | | | | | | [phone] | | | | | | | | +--------+---------+ + + + documented as of this encounter Visit Diagnoses Not on filedocumented in this encounter"
--- OUTSIDE RECORDS SUMMARY | ~2019-11-17 | XMS | Encounter Summary ---
Demographics + + + | Address | [address] | | | [place] [address] | + + + | Home Phone [...] Team Providers + +------+ + | Care Wet Sander Name | Role | Phone | [...] | | | | L[address]A Physician's | [place], [place] | | | | | [address] | [address] | | | | | [place], [place] | [phone] | | | | | [address] | | | | | | [phone] | | | +--------+ + + + [...] | + + + + + | [facility] DEPARTMENT OF | [address] | [place] [address] | | | PATHOLOGY | [address] | | | + + + + + | [facility] DEPARTMENT OF | [address] | [place] [address] | | | PATHOLOGY | [address] [...] + + + + | [facility] DEPARTMENT OF | [facility] | [place] [address] | | | PATHOLOGY | [address] | | | + + + + + | [facility] DEPARTMENT OF | [facility] | [place] [address] | | | PATHOLOGY | [address] [...] + + + + | [facility] DEPARTMENT OF | [address] | [place] [address] | | | PATHOLOGY | [address] | | | + + + + + | [facility] DEPARTMENT OF | [address] [facility] | [place] [address] | | | PATHOLOGY | [address] [...] + + + + | [facility] DEPARTMENT OF | [address] | [place], [place] [address] | | | PATHOLOGY | [address] | | | + + + + + | [facility] DEPARTMENT OF | [address] | [place] [address] | | | PATHOLOGY | [address] [...] [facility] | [address] | [place] [address] | | | PATHOLOGY | [address] | | | + + + + + | [facility] | [address] | [place] [address] | | | PATHOLOGY | [address] | | | + + + + + documented in this encounter Visit Diagnoses Not on filedocumented in this encounter"
--- OUTSIDE RECORDS SUMMARY | ~2019-11-17 | XMS | Encounter Summary ---
Demographics + + + | Address | [address] | | | [place] [address] | + + + | Home Phone [...] Team Providers + +------+ + | Care Studio Sales Associate Name | Role | Phone [...] 2006 | Visit | Rheumatology [address] | REQUIREMENTS ENGINEER | Fibromyalgia; | | | | [address] | | Fibromyalgia | | | | Mailcode: OPC5 | | | | | | Outpatient Clinic | | | | | | [facility], | | | | | | [place] [address] | | | | | | [phone] | | | +--------+---------+ + + + [...] 4-5/5 for all major deltoids, biceps, triceps. Sanitation Truck Cleaner slightly weak. Tone is normal. There is [...] cervical spine MRI to be done at [facility]. A few of these patients have been [...] + + +--------+ + + | NM INJECT TRIGGER | Procedures | Routin | [...]
--- OUTSIDE RECORDS SUMMARY | ~2019-11-17 | XMS | Encounter Summary ---
Demographics + + + | Address | [address] | | | [place] [address] | + + + | Home Phone [...] Team Providers + +------+ + | Care Arcade Games Mechanic Name | Role | Phone | [...] [id number] | | | | | | [place], [place] | | | | | | [address] | | | | | | [phone] | | | +--------+--------+ + + + [...]
--- OUTSIDE RECORDS SUMMARY | ~2019-11-17 | XMS | Encounter Summary ---
Demographics + + + | Address | [address] | | | [place] [address] | + + + | Home Phone [...] Providers + +------+ + | Care Terminal Operations Supervisor Name | Role | Phone | [...] of this encounter Progress Notes Interface, Director Sales And Marketing In - 11/05/2005 2:06 AM PDT [id number] GEOVANNI Barnes [id number] Clinic Date: 10/20/2005 Clinic: Bariatric Surgery Clinic Subjective: Ms. Meehan returns today for continued evaluation of her abdominal pain. She has had a gastric bypass followed by a panniculectomy approximately 1 year ago. She has had diffuse sharp and crampy abdominal pain which lasts up to 45 minutes. She says "it takes her breath away." She went to the emergency room at [place] last night and got some IV pain [...] . Wali Valentine M.D. CONNOR / SHARIF [id number] / [id number] / [id number] / [id number] Electronically signed by Luther Valentine 11-04-2005 11:36:40 AM documented i n this encounter Plan of Treatment Not on filedocumented as of this encounter Visit Diagnoses Not on filedocumented in this encounter
--- OUTSIDE RECORDS SUMMARY | ~2019-11-17 | XMS | Encounter Summary ---
Demographics + + + | Address | [address] | | | [place] [address] | + + + | Home Phone [...] Team Providers + +------+ + | Care Electrical/Instrument Technician Name | Role | Phone | + +------+ + PCP | Unavailable | + +------+ + Encounter Details +--------+ + + + + | Date | Type | Department | Care Team | Description | +--------+ + + + + | 12/21/ | Results | Rheumatology | Caitlin Rivera, | | | 2003 | Only | [place] [address] | [place] [place] | | | | | Sharmila Schilling | | | | | | Mailcode: OPC5 | | | | | | Outpatient Clinic | | | | | | Building [facility] | | | | | | [place] [address] | | | | | | [phone] | | | +--------+ + + + [...] | + +--------+ + + + | INSULIN GROWTH | Routin | 12/22/2003 | | Results for this | | FACTOR-1, SERUM | e | 11:41 AM | | procedure are in the | | | | PDT | | results section. | + +--------+ + + + | FERRITIN | Routin | 12/22/2003 | | Results for this | | | e | 11:41 AM | | procedure are in the | | | | PDT | | results section. | + +--------+ + + + | IRON AND TIBC, SERUM | Routin | 12/22/2003 | | Results for this | | | e | 11:41 AM | | procedure are in the | | | | PDT | | results section. | + +--------+ + + + documented in this encounter Results IRON SERUM AND TIBC (12/22/2003 11:41 AM PDT) + +---------+ + + + | Component | Value | Ref Range | Performed | Pathologist | | | | | At | Signature | + +---------+ + + + | IRON SERUM | 50 | 40 - 150 ug/dL | | | + +---------+ + + + | IRON BIND | 422 (H) | 225 - 410 ug/dL | | | | CAP SERUM | | | | | + +---------+ + + + | % | 12 (L) | 20 - 50 % | [...] Iron and TIBC, Serum Test performed by [facility] | | | [facility]. | | + + + + + + + + | Performing | Address | City/State/Zipcode | Phone Number | | Organization | | | | + + + + + | [facility] | [address] | [place] [address] | | | LABORATORY | | | | + + + + + IGF-1 (12/22/2003 11:41 AM PDT) + + + + + + | Component | Value | Ref Range | Performed | Pathologist | | | | | At | Signature | + + + + + + | IGF-1 | 71 (L)Comment: Test | 90 - 360 ng/mL | | | | | performed by Colin | | | [...] | + + + + + | [facility] | [address] | [place] [address] | | | LABORATORY | | | | + + + + + FERRITIN (12/22/2003 11:41 AM PDT) + + + + + + | Component | Value | Ref Range | Performed | Pathologist | | | | | At | Signature | + + + + + + | FERRITIN | 30Comment: Test | 10 - 291 ng/mL | | | | | performed at [place] | | | | | | [facility] | | | | | | Laboratory | | | | + + + + + + + + | Specimen | + + | | + + + + + + + | Performing | Address | City/State/Zipcode | Phone Number | | Organization | | | | + + + + + | [facility] | [address] | [place] [address] | | | LABORATORY | | | | + + + + + documented in this encounter Visit Diagnoses Not on filedocumented in this encounter"
--- OUTSIDE RECORDS SUMMARY | ~2019-11-17 | XMS | Encounter Summary ---
Demographics + + + | Address | [address] | | | [place] [address] | + + + | Home Phone [...] Team Providers + +------+ + | Care Parts Chaser Name | Role | Phone | + [...] Refill Request | | 2009 | | [place] [address] | [address] | (SUCRALFATE) | | | | Bethanie Mailcode: CH4S | [facility] | | | | | [facility] | [place], [place] | | | | | and Healing, | [address] | | | | | [facility] | [phone] | | | | | Floor [place], [place] | | | | | | [address] | | | | | | [phone] | | | +--------+--------+ + + + [...]
--- OUTSIDE RECORDS SUMMARY | ~2019-11-17 | XMS | Encounter Summary ---
Demographics + + + | Address | [address] | | | [place] [address] | + + + | Home Phone [...] Providers + +------+ + | Care Hospice Care Sales Consultant Name | Role | Phone | + +------+ + | Pedrito Gutierrez MD | PCP | | + +------+ + Encounter Details +--------+ + + + + | Date | Type | Department | Care Team | Description | +--------+ + + + + | 08/22/ | Hospital | Radiology/Imaging | | | | 2008 | Encounter | Lab at [facility] | | | | | | Mychal Kovacs Mailcode: | | | | | | CH3G [facility] | | | | | | Health and Healing, | | | | | | [place] [address], | | | | | | Floor [place], [place] | | | | | | [address] | | | | | | [phone] | | | +--------+ + + + [...]
--- OUTSIDE RECORDS SUMMARY | ~2019-11-17 | XMS | Encounter Summary ---
Demographics + + + | Address | [address] | | | [place] [address] | + + + | Home Phone [...] Team Providers + +------+ + | Care Uke Operator Name | Role | Phone | [...] as of this encounter Progress Notes Interface, Stucco Plasterer In - 10/30/2005 2:06 AM PDT [id number] GEOVANNI Barnes [id number] Clinic Date: 10/23/2005 Clinic: Ms. Meehan comes in today for followup of her abdominal CT. The CT is normal. We will follow her for abdominal pain. I will see her again in 3 months. If she has exacerbation, she can come earlier. I also gave her 30 tablets of 5 mg oxycodone for the pain. Chris Padgett M.D. CD / [id number] / [id number] / [id number] / Electronically signed by Chris Padgett 10-29-2005 10:10:39 AM documented i n this encounter Plan of Treatment Not on filedocumented as of this encounter Visit Diagnoses Not on filedocumented in this encounter"
--- OUTSIDE RECORDS SUMMARY | ~2019-11-17 | XMS | Encounter Summary ---
Demographics + + + | Address | [address] | | | [place] [address] | + + + | Home Phone [...] Providers + +------+ + | Care Hand Assembler For Puller Over Name | Role | Phone | + [...] + + | 04/02/ | Refill | [facility] | Alanis, | Medication Refill | | 2018 | | MEDICINE [address] [place] [address] | MD Petrona | | | | | [facility] | [address] [place] [address] | | | | | [place] [address] | [place] [address] | | | | | [phone] | [phone] | | | | | | | [...] | | | | | [place] [address] | | | | | | [phone] | | | | | | | | +--------+---------+ + + + | 12/20/ | Office | Otolaryngology | Ulysses Genao MD | | | 2019 | Visit | | [address] [place] | | | | | | [address] [place], | | | | | | [place] [address] | | | | | | [phone] | | | | | | | | +--------+---------+ + + + | 02/15/ | Office | Internal Medicine | Alanis, | | | 2019 | Visit | | MD Petrona | | | | | | [address] [place] [address] [place] | | | | | | [place] [address] | | | | | | [phone] | | | | | | | | +--------+---------+ + + + documented as of this encounter Visit Diagnoses Not on filedocumented in this encounter"
--- OUTSIDE RECORDS SUMMARY | ~2019-11-17 | XMS | Encounter Summary ---
Demographics + + + | Address | [address] | | | [place] [address] | + + + | Home Phone [...] Providers + +------+ + | Care Bench Technician Name | Role | Phone | [...] Mychal Kovacs | | | | | [facility] | [place], [place] | | | | | [address] | [address] | | | | | [address] | [phone] | | | | | [facility] | | | | | | Physician's | | | | | | Pavilion [place], | | | | | | [place] [address] | | | | | | [phone] | | | +--------+ + + + [...]
--- OUTSIDE RECORDS SUMMARY | ~2019-11-17 | XMS | Encounter Summary ---
Demographics + + + | Address | [address] | | | [place] [address] | + + + | Home Phone [...] Team Providers + +------+ + | Care Acoustical Installer Name | Role | Phone | + +------+ + | Petrona Thapa | PCP | | | MD | | | + +------+ + Reason for Visit + + + | Reason | Comments | + + + | Medication Follow-up | Prior Authorization needed | + + + Encounter Details +--------+ + + + + | Date | Type | Department | Care Team | Description | +--------+ + + + + | 08/23/ | Telephone | [facility] | Alanis, | Medication Follow-up | | 2019 | | [address] | MD Petrona | (Prior | | | | [facility] | [address] [place] [address] | Authorization | | | | [place] [address] | [place] [address] | needed) | | | | [phone] | [phone] | | | | | | | [...] AT [facility] [address] | | | | | | [address] [place] | | | | | | [place] [address] | | | | | | [phone] | | | | | | | | +--------+---------+ + + + | 12/20/ | Office | Otolaryngology | Ulysses Genao MD | | 2019 | Visit | | [address] [place] | | | | | | [address] [place], | | | | | | [place] [address] | | | | | | [phone] | | | | | | | | +--------+---------+ + + + | 02/15/ | Office | Internal Medicine | Alanis, | | | 2019 | Visit | | MD Petrona | | | | | | [address] [place] | | | | | | [place] [address] | | | | | | [phone] | | | | | | | | +--------+---------+ + + + documented as of this encounter Visit Diagnoses Not on filedocumented in this encounter"
--- OUTSIDE RECORDS SUMMARY | ~2019-11-17 | XMS | Encounter Summary ---
Demographics + + + | Address | [address] | | | [place] [address] | + + + | Home Phone [...] Description | +--------+--------+ + + + | 08/04/ | Refill | [facility] | Alanis, | Medication Refill | | 2017 | | MEDICINE [address] [place] [address] | MD Petrona | | | | | [facility] | [address] [place] [address] | | | | | [place] [address] | [place] [address] | | | | | [phone] | [phone] | | | | | | | [...] | | | | | [place] [address] | | | | | | [phone] | | | | | | | | +--------+---------+ + + + | 12/20/ | Office | Otolaryngology | Ulysses Genao MD | | | 2019 | Visit | | [address] [place] | | | | | | [address] [place], | | | | | | [place] [address] | | | | | | [phone] | | | | | | | | +--------+---------+ + + + | 02/15/ | Office | Internal Medicine | Alanis, | | | 2019 | Visit | | MD Petrona | | | | | | [address] [place] [address] [address] | | | | | | [place] [address] | | | | | | [phone] | | | | | | | | +--------+---------+ + + + documented as of this encounter Visit Diagnoses Not on filedocumented in this encounter"
--- OUTSIDE RECORDS SUMMARY | ~2019-11-17 | XMS | Encounter Summary ---
Demographics + + + | Address | [address] | | | [place] [address] | + + + | Home Phone [...] Providers + +------+ + | Care Regional Facilities Specialist Name | Role | Phone | + +------+ + PCP | Unavailable | + +------+ + Encounter Details +--------+ + + + + | Date | Type | Department | Care Team | Description | +--------+ + + + + | 07/04/ | Office | Endocrinology, | Beto Meeks MD | | | 2005 | Visit-ECX | Diabetes and | [address] | | | | | Clinical Nutrition | [place], [place] | | | | | [address] | [address] | | | | | Loop Mailcode: OPC5 | [phone] | | | | | Outpatient Clinic | | | | | | [facility] | | | | | | [place] [address] | | | | | | [phone] | | | +--------+ + + + [...]
--- OUTSIDE RECORDS SUMMARY | ~2019-11-17 | XMS | Encounter Summary ---
Demographics + + + | Address | [address] | | | [place] [address] | + + + | Home Phone [...] Providers + +------+ + | Care Wet Process Technician Name | Role | Phone [...] + + | 05/28/ | Office | [facility] | Delfina Molina, | LBP (Low Back Pain); | | 2006 | Visit | Pain Center at | ANP | Bilateral Knee | | | | [facility] | | Pain; Arthroplasty | | [...] Migraine Headache; | | | | Floor [place], [place] | | Herniated Lumbar | | | | [address] | | Intervertebral Disc | | | | [phone] | | L4-5; Fibromyalgia | | | [...] Belinda Meehan is a 47 y.o. female [facility] Comprehensive Pain Center Return [...] diagnostics and lab results. 6. [facility] Post arthroplasty physical rehabiliation. 7. Schedule follow up in one month or sooner if needed - The pateint was asked to call the clinic with any concerns or questions. DELFINA MOLINA [facility] Mail code CH 4P [place] [address] [place] [address] asha Nolasco - 05/28/2007 10:01 AM [...] of 103.2 she was seen here at [facility] today the temp is [...]
--- OUTSIDE RECORDS SUMMARY | ~2019-11-17 | XMS | Encounter Summary ---
Demographics + + + | Address | [address] | | | [place] [address] | + + + | Home Phone [...] Team Providers + +------+ + | Care Immigration Coordinator Name | Role | Phone | [...] order); | | | | Ave Mailcode: [facility] | [address] | Diarrhea | | | | [facility] | [place], [place] | | | | | and Healing, | [address] | | | | | [place] [address] [facility] | [phone] | | | | | [place], [place] | | | | | | [address] | | | | | | [phone] | | | +--------+ + + + [...]
--- OUTSIDE RECORDS SUMMARY | ~2019-11-17 | XMS | Encounter Summary ---
Demographics + + + | Address | [address] | | | [place] [address] | + + + | Home Phone [...] + + | 02/02/ | Telephone | [facility] | Alanis, | Pain | | 2019 | | MEDICINE [address] [place] [address] | MD Petrona | | | | | [address] | [address] [place] [address] | | | | | [place] [address] | [place] [address] | | | | | [phone] | [phone] | | | | | | | [...] | | | | | [place] [address] | | | | | | [phone] | | | | | | | | +--------+---------+ + + + | 12/20/ | Office | Otolaryngology | Ulysses Genao MD | | | 2019 | Visit | | [address] [place] | | | | | | [address] [place], | | | | | | [place] [address] | | | | | | [phone] | | | | | | | | +--------+---------+ + + + | 02/15/ | Office | Internal Medicine | Alanis, | | | 2019 | Visit | | MD Petrona | | | | | | [address] | | | | | | [place] [address] | | | | | | [phone] | | | | | | | | +--------+---------+ + + + documented as of this encounter Visit Diagnoses Not on filedocumented in this encounter"
--- OUTSIDE RECORDS SUMMARY | ~2019-11-17 | XMS | Encounter Summary ---
Demographics + + + | Address | [address] | | | [place] [address] [...] Team Providers + +------+ + | Care Reed Cleaner Name | Role | Phone | [...] + + | 12/10/ | Telephone | [facility] | Alanis, | Lab Results | | 2017 | | MEDICINE [address] [place] [address] | MD Petrona | | | | | [facility] | [address] [place] [address] | | | | | [place] [address] | [place] [address] | | | | | [phone] | [phone] | | | | | | | [...] | | | | | [place] [address] | | | | | | [phone] | | | | | | | | +--------+---------+ + + + | 12/20/ | Office | Otolaryngology | Ulysses Genao MD | | | 2020 | Visit | | [address] [place] | | | | | | [address] [place], | | | | | | [place] [address] | | | | | | [phone] | | | | | | | | +--------+---------+ + + + | 02/15/ | Office | Internal Medicine | Alanis, | | | 2019 | Visit | | MD Petrona | | | | | | [address] | | | | | | [place] [address] | | | | | | [phone] | | | | | | | | +--------+---------+ + + + documented as of this encounter Visit Diagnoses Not on filedocumented in this encounter"
--- OUTSIDE RECORDS SUMMARY | ~2019-11-17 | XMS | Encounter Summary ---
Demographics + + + | Address | [address] | | | [place] [address] | + + + | Home Phone [...] Team Providers + +------+ + | Care Circus Artist Name | Role | Phone | [...] + + | 08/18/ | Telephone | [facility] | Miranda Lambert, | Follow-up Diabetic | | 2006 | | Pain Center at | ANP | Assessment | | | | [facility] | | | | | | [address] | | | | | | Mailcode: CH15P | | | | | | [facility] | | | | | | and Healing, | | | | | | Building | | | | | | Floor [place], [place] | | | | | | [address] | | | | | | [phone] | | | +--------+ + + + [...]
--- OUTSIDE RECORDS SUMMARY | ~2019-11-17 | XMS | Encounter Summary ---
Demographics + + + | Address | [address] | | | [place] [address] | + + + | Home Phone [...] Providers + +------+ + | Care Black Leather Buffer Name | Role | Phone | + +------+ + | Pedrito Gutierrez MD | PCP | | + +------+ + Encounter Details +--------+---------+ + + + | Date | Type | Department | Care Team | Description | +--------+---------+ + + + | 11/24/ | Office | Preoperative | [facility], [facility] [address] | Other Specified | | 2007 | Visit | Medicine Clinic at | [facility] [address] | Pre-Operative | | | | [facility] 4th Floor [address] | [place] [address] | Examination; | | | | [address] | | Hemorrhagic Disorder | | | | Mailcode: CH4S | | due to Intrinsic | | | | [facility] | | Circulating | | | | and Healing, | | Anticoagulants | | | | Building 1,4th [facility] | | | | | | [place], [place] | | | | | | [address] | | | | | | [phone] | | | +--------+---------+ + + + [...] DEPARTMENT OF | [address] | [place] [address] | | | PATHOLOGY | [address] | | | + + + + + | [facility] DEPARTMENT OF | [address] | [place] [address] | | | PATHOLOGY | [address] [...] [facility] DEPARTMENT OF | [address] [facility] | [place] [address] | | | PATHOLOGY | [address] | | | + + + + + | [facility] DEPARTMENT OF | [address] [facility] | [place] [address] | | | PATHOLOGY | [address] [...] DEPARTMENT OF | [address] | [place] [address] | | | PATHOLOGY | [address] | | | + + + + + | [facility] DEPARTMENT OF | [address] | [place] [address] | | | PATHOLOGY | [address] [...] Performed At | + + + | [id number] Estimated GFR > 60 mL/min/1.73 sq m if non- | [facility] | | [place] [id number] Estimated GFR > 60 mL/min/1.73 sq m if | DEPARTMENT OF | | [place] GFR is estimated using the MDRD equation [...] + + + + | [facility] | [address] [facility] | [place] [address] | | | PATHOLOGY | [address] | | | + + + + + | [facility] | [address] [place] [address] | [place] [address] | | | PATHOLOGY | [address] [...] + + | Ordered by an | [facility] DEPT OF | | unspecified provider. Please click on view image for the detailed | CARDIOLOGY | | interpretation from [employer] results. | | |results. | | | | | + + + + + + + + | Performing | Address | City/State/Zipcode | Phone Number | | Organization | | | | + + + + + | [facility] DEPT OF | [address] | [place], [place] | | | CARDIOLOGY | [address] | [address] | | + + + + + | [facility] DEPT OF | [address] | [place], [place] | | | CARDIOLOGY | [address] | [address] | | + + + + + documented in this encounter Visit Diagnoses + + | Diagnosis | + + | Other specified pre-operative examination | + + | Hemorrhagic disorder due to intrinsic circulating anticoagulants | + + documented in this encounter
--- OUTSIDE RECORDS SUMMARY | ~2019-11-17 | XMS | Encounter Summary ---
Demographics + + + | Address | [address] | | | [place] [address] | + + + | Home Phone [...] Providers + +------+ + | Care Rn Recovery Name | Role | Phone | + [...] + + | 02/17/ | Clinical | [facility] | Alanis, | Vitamin B12 | | 2017 | Support | MEDICINE [address] [place] [address] | MD Petrona | deficiency | | | | [facility] | [address] [place] [address] | | | | | [place] [address] | [place] [address] | | | | | [phone] | [phone] | | | | | | | [...] | Visit | | [facility] [address] | | | | | | [facility] | | | | | | [place] [address] | | | | | | [phone] | | | | | | | | +--------+---------+ + + + | 12/20/ | Office | Otolaryngology | Ulysses Genao MD | | | 2019 | Visit | | [address] | | | | | | [address] [place], | | | | | | [place] [address] | | | | | | [phone] | | | | | | | | +--------+---------+ + + + | 02/15/ | Office | Internal Medicine | Alanis, | | | 2019 | Visit | | MD Petrona | | | | | | [address] [place] | | | | | | [place] [address] | | | | | | [phone] | | | | | | | [...] | | | | First dose on [facility] 10/15/17 at 1215 [...]
--- OUTSIDE RECORDS SUMMARY | ~2019-11-17 | XMS | Encounter Summary ---
[...] Providers + +------+ + | Care Data Collection Specialist Name | Role | Phone | [...] CH15P | | | | | | [place] [facility] | | | | | | and Healing, | | | | | | | | | | | | Floor [place], [place] | | | | | | [address] | | | | | | [phone] | | | +--------+ + + + [...]
--- OUTSIDE RECORDS SUMMARY | ~2019-11-17 | XMS | Encounter Summary ---
Demographics + + + | Address | [address] | | | [place] [address] | + + + | Home Phone [...] Team Providers + +------+ + | Care Tap Grinder Name | Role | Phone | [...] of this encounter Progress Notes Interface, Hot Pond Operator In - 12/07/2005 3:08 AM [facility] [place] [address] [place], [place] [address] or January 31, 2003 Pedrito Gutierrez M.D. [address] [place] [address] RE: BELINDA MEEHAN MR #: [id number] Dear Dr. Gutierrez: I had the pleasure [...] She had surgery 5 days ago in [place] on her right hand and wrist, for [...] time to help minimize her travel to [place]. In the meantime, please feel free to contact me if you have other questions, concerns, or suggestions regarding her condition. Sincerely, Issac Meeks M.D. manager reliability Division of Endocrinology, Diabetes, and Clinical Nutrition, Director of Metabolic Disorders Clinic MONIQUE / SHARIF [id number] / [id number] / [id number] / Tdocumented in this encounter Plan of Treatment Not on filedocumented as of this encounter Visit Diagnoses Not on filedocumented in this encounter"
--- OUTSIDE RECORDS SUMMARY | ~2019-11-17 | XMS | Encounter Summary ---
Demographics + + + | Address | [address] | | | [place] [address] | + + + | Home Phone [...] Providers + +------+ + | Care Clinical Pharmacy Manager Name | Role | Phone [...] | | | | pain | Jayce Lyndeborough | [facility] [address] | | | | | Procedures | Clementina Peterson | TRACE Kovacs | | | | | CONSULT TO | [place] | [place] | | | | | GI PROCEDURE | [address] | [address] | | | | | UNIT: | Phone: | | | | | | COLONOSCOPY | [phone] | | | | | | | Fax: | | | | | | | [phone] | | + + + + + [...] | | | | Mailcode: [id number] | [place], [place] | | | | | [facility] | [address] | | | | | [address] [place], [place] | [phone] | | | | | [address] | | | | | | [phone] | | | +--------+---------+ + + + [...] Ms. Meehan has been seen in the [facility] emergency dept twice in the last [...] [facility] | [address] | [place], [place] | | | [facility] | | [address] | | + + + + + documented in this encounter Visit Diagnoses + + | Diagnosis | + + | Chronic abdominal pain - Primary Abdominal pain, unspecified site | + + documented in this encounter
--- OUTSIDE RECORDS SUMMARY | ~2019-11-17 | XMS | Encounter Summary ---
Demographics + + + | Address | [address] | | | [place] [address] | + + + | Home Phone [...] Team Providers + +------+ + | Care Self Defense Instructor Name | Role | Phone | [...] + + | 01/18/ | Refill | [facility] | Alanis, | Medication Refill; | | 2018 | | MEDICINE [address] [place] [address] | MD Petrona | Medication Refill | | | | [facility] | [address] [place] [address] | | | | | [place] [address] | [place] [address] | | | | | [phone] | [phone] | | | | | | | [...] | | | | | [place] [address] | | | | | | [phone] | | | | | | | | +--------+---------+ + + + | 12/20/ | Office | Otolaryngology | Ulysses Genao MD | | | 2019 | Visit | | [address] [place] | | | | | | [address] [place] | | | | | | [place] [address] | | | | | | [phone] | | | | | | | | +--------+---------+ + + + | 02/15/ | Office | Internal Medicine | Alanis, | | | 2019 | Visit | | MD Petrona | | | | | | [address] [place] | | | | | | [place] [address] | | | | | | [phone] | | | | | | | | +--------+---------+ + + + documented as of this encounter Visit Diagnoses Not on filedocumented in this encounter"
--- OUTSIDE RECORDS SUMMARY | ~2019-11-17 | XMS | Encounter Summary ---
Demographics + + + | Address | [address] | | | [place] [address] | + + + | Home Phone [...] Team Providers + +------+ + | Care Broadcast Correspondent Name | Role | Phone | + [...] | | | Metabolism | bypass | [address] | [address] | | | | | Hypovitamino | [address], | Ave | | | | | sis D [address] | [address] | [place], [place] | | | | | nutritional | [place] | [address] | | | | | deficiency | [address] | Phone: | | | | | Other | Phone: | [phone] | | | | | protein-jose manuel | [phone] | Fax: | | | | | nick | Fax: | [phone] | | | | | malnutrition | [phone] | | | | | | Weight | | | | | | | gain | | | | | | | Procedures | | | | | | | CONSULT TO | | | | | | | ENDO | | | | | | | [address] | | | | | | | [address] | | | +--------+--------+ + + + + Encounter Details +--------+---------+ + + + | Date | Type | Department | Care Team | Description | +--------+---------+ + + + | 03/22/ | Office | Kraig Turner | Bteo Meeks MD | Metabolic syndrome X | | 2012 | Visit | [facility] | [address] | 250.80 (Primary | | | | [facility] | [place], [place] | Dx); Hypothyroidism; | | | | [address] | [address] | Essential | | | | [address] | [phone] | hypertension 401.9; | | | | [facility] | | Fibromyalgia | | | | Physician's | | syndrome 729.1 | | | | Pavilion [place], | | | | | | [place] [address] | | | | | | [phone] | | | +--------+---------+ + + + [...] Hives Mainly in the legs Clindamycin Codeine Lvknwoq-Nujxdcoeff-Jhh-Caff Balance problems Fioricet W/Codeine (Lzmiylecum-Vchoxybzdr-Aqg-Cod) Keflex (Cephalexin) Morphine IM ( only in [...] U/L 41 ANION GAP 8 VITAMIN B12, [id number] pg/ml >2000 (H) HEMOGLOBIN A1C <=5.6 % [...] SERUM 15.0-85.0 pg/ml 222.9 (H) VITAMIN B12, [id number] pg/ml > 2000 HEMOGLOBIN A1C <=5.6 % [...]
--- OUTSIDE RECORDS SUMMARY | ~2019-11-17 | XMS | Encounter Summary ---
Demographics + + + | Address | [address] | | | [place] [address] | + + + | Home Phone [...] Providers + +------+ + | Care Vocational Training Instructor Name | Role | Phone | [...] + + | 06/24/ | Telephone | [facility] | Alanis, | Medication Orders | | 2018 | | MEDICINE [address] [place] [address] | MD Petrona | | | | | [facility] | [address] [place] [address] | | | | | [place] [address] | [place] [address] | | | | | [phone] | [phone] | | | | | | | [...] | | 2019 | Visit | | [facility] [address] | | | | | | [address] [place] | | | | | | [place] [address] | | | | | | [phone] | | | | | | | | +--------+---------+ + + + | 12/20/ | Office | Otolaryngology | Ulysses Genao MD | | | 2019 | Visit | | [address] | | | | | | [address] [place], | | | | | | [place] [address] | | | | | | [phone] | | | | | | | | +--------+---------+ + + + | 02/15/ | Office | Internal Medicine | Alanis, | | | 2019 | Visit | | MD Petrona | | | | | | [address] [place] [address] [address] | | | | | | [place] [address] | | | | | | [phone] | | | | | | | | +--------+---------+ + + + documented as of this encounter Visit Diagnoses Not on filedocumented in this encounter"
--- OUTSIDE RECORDS SUMMARY | ~2019-11-17 | XMS | Encounter Summary ---
Demographics + + + | Address | [address] | | | [place] [address] | + + + | Home Phone [...] + +------+ + | Care Insurance Claims Clerk Name | Role | Phone | + +------+ + | Pedrito Gutierrez MD | PCP | | + +------+ + Encounter Details +--------+---------+ + + + | Date | Type | Department | Care Team | Description | +--------+---------+ + + + | 08/05/ | Office | Comprehensive Pain | Nathalia Arora | Cervical Spondylosis | | 2006 | Visit | [facility] | [address] | without Myelopathy | | | | [address] | Clementina Winkler [place], | (Primary Dx); | | | | Mychal Kovacs Mailcode: | [place] [address] | Spondylosis with | | | | [facility] | | Myelopathy, Lumbar | | | | [facility], | | Region; Herniated | | | | Building | | Lumbar | | | | Floor [place], [place] | | Intervertebral Disc; | | | | [address] | | Unspecified Myalgia | | | | [phone] | | and Myositis | +--------+---------+ + [...] Progress Note Date: 08/05/2006 Belinda Molly Shefali [id number]. [id number] Start of Care: 06/23/2006 Referring Provider: [...] keep hydrated, went to the ED in [place] and was sent home by the M[facility]ud[facility] without a ny treatment and advised by him to contact the pain clinic. Patient did not some relief with her last treatment, and continues her exercises consistent ly. She is walking daily at [facility] for 15-20 minutes, sitting X 60 minutes, [...] + + +--------+ + + | MI MANUAL THER | Procedures | Routin | [...] + + +--------+ + + | MI THERAPEUTIC | Procedures | Routin | Cervical [...] + + +--------+ + + | MI THERAPEUTIC | Procedures | Routin | Cervical [...]
--- OUTSIDE RECORDS SUMMARY | ~2019-11-17 | XMS | Encounter Summary ---
Demographics + + + | Address | [address] | | | [place] [address] | + + + | Home Phone [...] Providers + +------+ + | Care Metal Coater Operator Name | Role | Phone | [...] | | | [facility] | [place], [place] | | | | | [address] | [address] | | | | | [address] | [phone] | | | | | Physician's | | | | | | Pavilion, 1st floor | | | | | | [place], [place] | | | | | | [address] | | | | | | [phone] | | | +--------+--------+ + + + [...]
--- OUTSIDE RECORDS SUMMARY | ~2019-11-17 | XMS | Encounter Summary ---
Demographics + + + | Address | [address] | | | [place] [address] | + + + | Home Phone [...] Team Providers + +------+ + | Care Ent Surgeon Name | Role | Phone | [...] + | 06/02/ | Telephone | [facility] | Alanis, | Results | | 2017 | | MEDICINE [address] | MD Petrona | | | | | [facility] | [address] [facility] | | | | | [place] [address] | [place] [address] | | | | | [phone] | [phone] | | | | | | | [...] | | | | | [place] [address] | | | | | | [phone] | | | | | | | | +--------+---------+ + + + | 12/20/ | Office | Otolaryngology | Ulysses Genao MD | | | 2019 | Visit | | [address] | | | | | | [address] [place], | | | | | | [place] [address] | | | | | | [phone] | | | | | | | | +--------+---------+ + + + | 02/15/ | Office | Internal Medicine | Alanis, | | | 2019 | Visit | | MD Petrona | | | | | | [address] [place] | | | | | | [place] [address] | | | | | | [phone] | | | | | | | | +--------+---------+ + + + documented as of this encounter Visit Diagnoses Not on filedocumented in this encounter"
--- OUTSIDE RECORDS SUMMARY | ~2019-11-17 | XMS | Encounter Summary ---
Demographics + + + | Address | [address] | | | [place] [address] | + + + | Home Phone [...] Team Providers + +------+ + | Care Lint Cleaner Name | Role | Phone | [...] + + | 10/09/ | Refill | [facility] | Alanis, | Medication Refill | | 2017 | | MEDICINE [address] [place] [address] | MD Petrona | | | | | [facility] | [address] [place] [address] | | | | | [place] [address] | [place] [address] | | | | | [phone] | [phone] | | | | | | | [...] | | | | | [place] [address] | | | | | | [phone] | | | | | | | | +--------+---------+ + + + | 12/20/ | Office | Otolaryngology | Ulysses Genao MD | | | 2019 | Visit | | [address] | | | | | | [address] [place], | | | | | | [place] [address] | | | | | | [phone] | | | | | | | | +--------+---------+ + + + | 02/15/ | Office | Internal Medicine | Alanis, | | | 2019 | Visit | | MD Petrona | | | | | | [address] [place] [address] [address] | | | | | | [place] [address] | | | | | | [phone] | | | | | | | | +--------+---------+ + + + documented as of this encounter Visit Diagnoses Not on filedocumented in this encounter"
--- OUTSIDE RECORDS SUMMARY | ~2019-11-17 | XMS | Encounter Summary ---
Demographics + + + | Address | [address] | | | [place] [address] | + + + | Home Phone [...] Team Providers + +------+ + | Care Stacker Straightener Name | Role | Phone | [...] + + | 02/22/ | Telephone | [facility] | Alanis, | Medication Question | | 2018 | | MEDICINE [address] [place] [address] | MD Petrona | | | | | [facility] | [address] [place] [address] | | | | | [place] [address] | [place] [address] | | | | | [phone] | [phone] | | | | | | | [...] | | | | | [place] [address] | | | | | | [phone] | | | | | | | | +--------+---------+ + + + | 12/20/ | Office | Otolaryngology | Ulysses Genao MD | | | 2019 | Visit | | [address] | | | | | | [address] [place] | | | | | | [place] [address] | | | | | | [phone] | | | | | | | | +--------+---------+ + + + | 02/15/ | Office | Internal Medicine | Alanis, | | | 2019 | Visit | | MD Petrona | | | | | | [address] | | | | | | [place] [address] | | | | | | [phone] | | | | | | | | +--------+---------+ + + + documented as of this encounter Visit Diagnoses Not on filedocumented in this encounter"
--- OUTSIDE RECORDS SUMMARY | ~2019-11-17 | XMS | Encounter Summary ---
Demographics + + + | Address | [address] | | | [place] [address] | + + + | Home Phone [...] Providers + +------+ + | Care Forestry Instructor Name | Role | Phone | [...] + + | 07/20/ | Telephone | [facility] | Alanis, | Immunizations | | 2019 | | MEDICINE [address] [place] [address] | MD Petrona | | | | | [facility] | [address] [place] [address] | | | | | [place] [address] | [place] [address] | | | | | [phone] | [phone] | | | | | | | [...] | | 2019 | Visit | | [facility] [address] | | | | | | [address] [place] | | | | | | [place] [address] | | | | | | [phone] | | | | | | | | +--------+---------+ + + + | 12/20/ | Office | Otolaryngology | Ulysses Genao MD | | | 2019 | Visit | | [address] | | | | | | [address] [place], | | | | | | [place] [address] | | | | | | [phone] | | | | | | | | +--------+---------+ + + + | 02/15/ | Office | Internal Medicine | Alanis, | | | 2019 | Visit | | MD Petrona | | | | | | [address] | | | | | | [place] [address] | | | | | | [phone] | | | | | | | [...]
--- OUTSIDE RECORDS SUMMARY | ~2019-11-17 | XMS | Encounter Summary ---
Demographics + + + | Address | [address] | | | [place] [address] | + + + | Home Phone [...] Providers + +------+ + | Care Station Worker Name | Role | Phone | [...] this encounter Progress Notes Interface, Cutter And Presser In - 08/14/2005 2:05 AM PST [id number] [facility] Date: 08/06/2005 Clinic: Rheumatology [...] of antiinflammatory diet that one of the physician office rep in [place] has written a book about, and I have had a patient do extremely well with it in terms of her IBS and fibromyalgia pain and fatigue. Belinda is interested in this and will pursue it. 3. I have given her a lot of articles that she can pass onto her physicians in [place]. She would like somebody there to learn [...] 4 months. Caitlin Rivera M.S., F.N.P. / [id number] / [id number] / [id number] / [id number] cc: Pedrito Gutierrez M.D. [address] [place] [address] Electronically signed by Caitlin Rivera 08-13-2005 03:37:47 PM documented i n this encounter Plan of Treatment Not on filedocumented as of this encounter Visit Diagnoses Not on filedocumented in this encounter"
--- OUTSIDE RECORDS SUMMARY | ~2019-11-17 | XMS | Encounter Summary ---
Demographics + + + | Address | [address] | | | [place] [address] | + + + | Home Phone [...] Team Providers + +------+ + | Care Almond Blancher Operator Name | Role | Phone | [...] + + | 09/30/ | Refill | [facility] | Alanis, | Medication Refill | | 2018 | | MEDICINE [address] [place] [address] | MD Petrona | | | | | [facility] | [address] [place] [address] | | | | | [place] [address] | [place] [address] | | | | | [phone] | [phone] | | | | | | | [...] | | | | | [place] [address] | | | | | | [phone] | | | | | | | | +--------+---------+ + + + | 12/20/ | Office | Otolaryngology | Ulysses Genao MD | | | 2019 | Visit | | [address] | | | | | | [address] [place], | | | | | | [place] [address] | | | | | | [phone] | | | | | | | | +--------+---------+ + + + | 02/15/ | Office | Internal Medicine | Alanis, | | | 2019 | Visit | | MD Petrona | | | | | | [address] [place] [address] [address] | | | | | | [place] [address] | | | | | | [phone] | | | | | | | | +--------+---------+ + + + documented as of this encounter Visit Diagnoses Not on filedocumented in this encounter"
--- OUTSIDE RECORDS SUMMARY | ~2019-11-17 | XMS | Encounter Summary ---
Demographics + + + | Address | [address] | | | [place] [address] | + + + | Home Phone [...] Providers + +------+ + | Care Chief Optometry Service Name | Role | Phone | + [...] + + | 02/02/ | Telephone | [facility] | Alanis, | Pain | | 2019 | | MEDICINE [address] [place] [address] | MD Petrona | | | | | [place] | [address] [place] [address] | | | | | [place] [address] | [place] [address] | | | | | [phone] | [phone] | | | | | | | [...] | | | | | [place] [address] | | | | | | [phone] | | | | | | | | +--------+---------+ + + + | 12/20/ | Office | Otolaryngology | Ulysses Genao MD | | | 2019 | Visit | | [address] | | | | | | [address] [place], | | | | | | [place] [address] | | | | | | [phone] | | | | | | | | +--------+---------+ + + + | 02/15/ | Office | Internal Medicine | Alanis, | | | 2019 | Visit | | MD Petrona | | | | | | [address] | | | | | | [place] [address] | | | | | | [phone] | | | | | | | | +--------+---------+ + + + documented as of this encounter Visit Diagnoses Not on filedocumented in this encounter"
--- OUTSIDE RECORDS SUMMARY | ~2019-11-17 | XMS | Encounter Summary ---
Demographics + + + | Address | [address] | | | [place] [address] | + + + | Home Phone [...] Team Providers + +------+ + | Care Steam Drier Tender Name | Role | Phone | [...] of this encounter Progress Notes Interface, Steam Crane Operator In - 01/11/2005 5:17 PM PDT [place] [facility] [address] [place] [address] or June 26, 2003 Pedrito Gutierrez M.D. [address] [place] [address] RE: BELINDA MEEHAN MR #: [id number] Dear Dr. Gutierrez: I had the pleasure of seeing your patient, Ms. Belinda Meehan, today in the [facility] Division of Rheumatology Clinic. She was evaluated [...] after that visit. Sincerely, Sesar Nash M.D. NURAI / SHARIF [id number] / [id number] / [id number] / [id number] cc: Kelley Alegre [address] [place] [address] FAX: [phone] signed by Interface, Steam Crane Operator In at 01/11/2005 5:17 PM PDTdocumented in this encounter Plan of Treatment Not on filedocumented as of this encounter Visit Diagnoses Not on filedocumented in this encounter"
--- OUTSIDE RECORDS SUMMARY | ~2019-11-17 | XMS | Encounter Summary ---
Demographics + + + | Address | [address] | | | [place] [address] | + + + | Home Phone [...] Providers + +------+ + | Care Rn School Name | Role | Phone | + [...] + + | 08/14/ | Telephone | [facility] | Alanis, | Lab Order | | 2017 | | MEDICINE [address] [place] [address] | MD Petrona | | | | | [facility] | [address] [place] [address] | | | | | [place] [address] | [place] [address] | | | | | [phone] | [phone] | | | | | | | [...] | 2019 | Visit | | [facility] [address] | | | | | | [address] [place] | | | | | | [place] [address] | | | | | | [phone] | | | | | | | | +--------+---------+ + + + | 12/20/ | Office | Otolaryngology | Ulysses Genao MD | | | 2020 | Visit | | [address] | | | | | | [address] [place], | | | | | | [place] [address] | | | | | | [phone] | | | | | | | | +--------+---------+ + + + | 02/15/ | Office | Internal Medicine | EmmyHeikePrudencioflip, | | | 2019 | Visit | | MD Petrona | | | | | | [address] | | | | | | [place] [address] | | | | | | [phone] | | | | | | | | +--------+---------+ + + + documented as of this encounter Visit Diagnoses + + | Diagnosis | + + | Preop examination - Primary Preoperative examination, unspecified | + + documented in this encounter"
--- OUTSIDE RECORDS SUMMARY | ~2019-11-17 | XMS | Encounter Summary ---
Demographics + + + | Address | [address] | | | [place] [address] | + + + | Home Phone [...] Providers + +------+ + | Care Animal Control Supervisor Name | Role | Phone | [...] (has been | | 2007 | | [place] [address] | [address] | in the bathroom | | | | Ave Mailcode: CH4S | [facility] | since one this | | | | [facility] | [place], [place] | morning with | | | | and Healing, | [address] | IBS/dumping syndrome | | | | [address], | [phone] | symptoms) | | | | Floor [place], [place] | | | | | | [address] | | | | | | [phone] | | | +--------+ + + + [...]
--- OUTSIDE RECORDS SUMMARY | ~2019-11-17 | XMS | Encounter Summary ---
Demographics + + + | Address | [address] | | | [place] [address] | + + + | Home Phone [...] Providers + +------+ + | Care Recovery Analyst Name | Role | Phone | [...] + + | 09/02/ | Telephone | [facility] | Alanis, | Paperwork | | 2018 | | MEDICINE [address] [place] [address] | MD Petrona | | | | | [facility] | [address] [place] [address] | | | | | [place] [address] | [place] [address] | | | | | [phone] | [phone] | | | | | | | [...] | | | | | [place] [address] | | | | | | [phone] | | | | | | | | +--------+---------+ + + + | 12/20/ | Office | Otolaryngology | Ulysses Genao MD | | | 2020 | Visit | | [address] | | | | | | [address] [place], | | | | | | [place] [address] | | | | | | [phone] | | | | | | | | +--------+---------+ + + + | 02/15/ | Office | Internal Medicine | Alanis, | | | 2019 | Visit | | MD Petrona | | | | | | [address] | | | | | | [place] [address] | | | | | | [phone] | | | | | | | | +--------+---------+ + + + documented as of this encounter Visit Diagnoses Not on filedocumented in this encounter"
--- OUTSIDE RECORDS SUMMARY | ~2019-11-17 | XMS | Encounter Summary ---
Demographics + + + | Address | [address] | | | [place] [address] | + + + | Home Phone [...] Team Providers + +------+ + | Care Orthodontic Technician Name | Role | Phone | [...] unspecified | | | | [address] | [place], [place] | abdominal location; | | | | [place], [place] | [address] | Gastroesophageal | | | | [address] | [phone] | reflux disease, | | | | [phone] | | esophagitis presence | | | [...] You can't be awakened Date Last Reviewed: 04/01/201619995097-5292 [employer]. [address] [place] [address], [place] [address]. All righ ts reserved. This information is [...] [facility] [address] | | | | | | [address] | | | | | | [place] [address] | | | | | | [phone] | | | | | | | | +--------+---------+ + + + | 12/20/ | Office | Otolaryngology | Ulysses Genao MD | | | 2019 | Visit | | [address] | | | | | | [address] [place], | | | | | | [place] [address] | | | | | | [phone] | | | | | | | | +--------+---------+ + + + | 02/15/ | Office | Internal Medicine | Alanis, | | | 2019 | Visit | | MD Petrona | | | | | | [address] [place] | | | | | | [place] [address] | | | | | | [phone] | | | | | | | [...] 12/18/2017 | PROVATION | | 10:49 AMMRN: [id number] #: [id number] of : | | | 9Admit Type: AmbulatoryAge: 57Room: [facility] 01Gender: FemaleNote | | | Status: FinalizedAttending MD: Luther Brito [facility] | | | Upper GI endoscopyIndications: Generalized [...] the anesthesiologist and the | | | hotel maintenance technician in the pre-procedure area in the [...] | appearing mucosa. This was traversed. The wubqc-ha-loyhhpz limb | | | was characterized by healthy appearing mucosa. The | | | jejunojejunal anastomosis was characterized by healthy | | | appearing mucosa. The yapaxhfv-uc-uupyeso limb was not examined | | | [...] AMScope Out: | | | 11:08:34 AM [facility], [facility] [address] | | | [place] [address] | | | - Return to GI [...] |Scope Out: 11:08:34 AM | | | [facility], [facility] [place], [place] | | | [address] | | + + -+ + +---------+ [...] 12/18/2017 | PROVATION | | 10:43 AMMRN: [id number] #: [id number] of : | | | 9Admit Type: AmbulatoryAge: 57Room: [facility] 01Gender: FemaleNote | | | [...] the anesthesiologist and the | | | hotel maintenance technician in the pre-procedure area in the [...] Scope In: 11:12:28 AMScope Out: 11:56:57 AM [place] | | | [facility], [address] [place] [address] | | | [phone] | | | - Await pathology results. [...] |Scope Out: 11:56:57 AM | | | [facility], [address] [place] [address] | | | [address] | | + + -+ + +---------+ [...] for specific diagnostic abnormality. | | | JVR:[facility]:C2NR GROSS DESCRIPTION: Received in five parts. | [...] | | slide preparation were performed by [facility] | | | [facility] [address] [address] (Fitness Studies Teacher: Stephen Jacobson, | | | Joanna CLIA#: [id number]). Professional interpretation was performed | | | by [facility] | | | [place] [address] (Fitness Studies Teacher: Stephen | | | Joanna Jacobson; CLIA#: [id number]). Diagnostician: Stephen Khan | | | Kavon [...]
--- OUTSIDE RECORDS SUMMARY | ~2019-11-17 | XMS | Encounter Summary ---
Demographics + + + | Address | [address] | | | [place] [address] | + + + | Home Phone [...] Providers + +------+ + | Care Operations Intelligence Name | Role | Phone | [...] | | | | | Encounter | [place] | | | | | for | [address] | [address] | | | | | long-term | | Phone: | | | | | (current) | | [phone] | | | | | use of other | | Fax: | | | | | medications | | [phone] | | | | | LBP (low [...] 08/09/ | Office | [facility] at [facility] | Lukasz Charles, | Major depressive | | 2013 | Visit | [address] | PhD [address] | disorder, recurrent | | | | Mailcode: CH15P | [place], [place] | episode, moderate | | | | [facility] for [facility] | [address] | ([facility]) (Primary Dx); | | | | and Healing, | [phone] | LBP (low back pain); | | | | | | Fibromyalgia; | | | | Floor [place], [place] | | Adjustment disorder | | | | [address] | | with anxiety | | | | [phone] | | | +--------+---------+ + + + [...] gives her a lot of motivation. Diagnosis: Merrick I: 1. (296.32) Major depressive disorder, recurrent, moderate. 2. (309.24) Adjustment disorder with anxiety. Merrick II: Deferred Merrick III: abdominal pain, migraine headache, low back pain, fibromyalgia. Merrick IV: low finances Merrick V: GAF 55-60 Plan: return in 1 month. Check mood, pain, activity, stress management. Ask about any ch anges at home, taking care of her own self, sleeping. Continue cognitive/behavioral therapy . Total time spent with patient was approximately 45 minutes. LUKASZ CHARLES PHD [facility] [address] [place] [address] And [facility], [address] [place] [address] documented in this en counter Plan of [...]
--- OUTSIDE RECORDS SUMMARY | ~2019-11-17 | XMS | Encounter Summary ---
[...] | | | | | Clementina Winkler [place], | | | | | | [place] [address] | | | +--------+ + + + [...] | Patient: BELINDA MEEHAN J Med Rec: [id number] Sex F Bdate: 1960 | | Date/Time Data | | Entered Into [facility] | | Anesth PostOp | | Surgery Date [id number] 12/09/04 10:30 | | [id number] 11/23/03 10:57 | | Anesthesiologist SYEDA ANDREWS [...]
--- OUTSIDE RECORDS SUMMARY | ~2019-11-17 | XMS | Encounter Summary ---
Demographics + + + | Address | [address] | | | [place] [address] | + + + | Home Phone [...] Providers + +------+ + | Care Screen Maker Name | Role | Phone | + +------+ + | Petrona Thapa | PCP | | | MD | | | + +------+ + Encounter Details +--------+ + + + + | Date | Type | Department | Care Team | Description | +--------+ + + + + | 12/07/ | Abstract | [facility] | Alanis, | | | 2017 | | MEDICINE [address] | MD Petrona | | | | | [address] | [address] [facility] | | | | | [place] [address] | [place] [address] | | | | | [phone] | [phone] | | | | | | | [...] | | | | | | [place] [address] | | | | | | [phone] | | | | | | | | +--------+---------+ + + + | 12/20/ | Office | Otolaryngology | Ulysses Genao MD | | | 2019 | Visit | | [address] [place] | | | | | | [address] [place], | | | | | | [place] [address] | | | | | | [phone] | | | | | | | | +--------+---------+ + + + | 02/15/ | Office | Internal Medicine | Alanis, | | | 2019 | Visit | | MD Petrona | | | | | | [address] [place] | | | | | | [place] [address] | | | | | | [phone] | | | | | | | [...]
--- OUTSIDE RECORDS SUMMARY | ~2019-11-17 | XMS | Encounter Summary ---
Demographics + + + | Address | [address] | | | [place] [address] | + + + | Home Phone [...] Providers + +------+ + | Care Hide Trimmer Name | Role | Phone | [...] [facility] | | | | | | [facility] | | | | | | and Healing, | | | | | | Building [address]th | | | | | | Floor [place], [place] | | | | | | [address] | | | | | | [phone] | | | +--------+ + + + [...]
--- OUTSIDE RECORDS SUMMARY | ~2019-11-17 | XMS | Encounter Summary ---
Demographics + + + | Address | [address] | | | [place] [address] | + + + | Home Phone [...] Team Providers + +------+ + | Care Ethnoarchaeologist Name | Role | Phone | + [...] as of this encounter Discharge Summaries Interface, Multimedia Technician In - 01/12/2005 10:09 AM PDT [id number] GEOVANNI Barnes Admission Date: 12/06/2004 Discharge Date: [...] continued to place over 100 mL per ZCAARIAS of serosanguinous fluid. Her postoperative hematocrit remained stable. She advanced her diet as tolerated and was able to have a bowel movement and ambulate appropriately. Upon discharge, her incision looked clear, dry, and intact. Guatay were in place. She had some moderate [...] Sree Carrillo M.D. Chris Padgett M.D. / [id number] / [id number] / [id number] / [id number] Electronically signed by Chris Padgett 12-31-2004 03:03:21 PM documented i n this encounter Plan of Treatment Not on filedocumented as of this encounter Visit Diagnoses Not on filedocumented in this encounter"
--- OUTSIDE RECORDS SUMMARY | ~2019-11-17 | XMS | Encounter Summary ---
Demographics + + + | Address | [address] | | | [place] [address] | + + + | Home Phone [...] Providers + +------+ + | Care Software Specialist Name | Role | Phone | [...] + + | 11/12/ | Telephone | [facility] | Alanis, | Leg Swelling | | 2017 | | MEDICINE [address] [place] [address] | MD Pterona | | | | | [facility] | [address] [place] [address] | | | | | [place] [address] | [place] [address] | | | | | [phone] | [phone] | | | | | | | [...] 12/20/ | Office | Audiology | Elisabet Mnuson MS | | | 2019 | Visit | | [facility] [address] | | | | | | [address] [place] | | | | | | [place] [address] | | | | | | [phone] | | | | | | | | +--------+---------+ + + + | 12/20/ | Office | Otolaryngology | Ulysses Genao MD | | | 2019 | Visit | | [address] | | | | | | [address] [place], | | | | | | [place] [address] | | | | | | [phone] | | | | | | | | +--------+---------+ + + + | 02/15/ | Office | Internal Medicine | Alanis, | | | 2019 | Visit | | MD Petrona | | | | | | [address] | | | | | | [place] [address] | | | | | | [phone] | | | | | | | | +--------+---------+ + + + documented as of this encounter Visit Diagnoses Not on filedocumented in this encounter"
--- OUTSIDE RECORDS SUMMARY | ~2019-11-17 | XMS | Encounter Summary ---
Demographics + + + | Address | [address] | | | [place] [address] | + + + | Home Phone [...] Team Providers + +------+ + | Care Pastrycook'S Assistant Name | Role | Phone | [...] + + | 02/04/ | Telephone | [facility] | Emmy-Kamlesh, | Other (Kidney pain ) | | 2017 | | MEDICINE [address] | MD Petrona | | | | | [facility] | [address] [place] [address] | | | | | [place] [address] | [place] [address] | | | | | [phone] | [phone] | | | | | | | [...] | | | | | [place] [address] | | | | | | [phone] | | | | | | | | +--------+---------+ + + + | 12/20/ | Office | Otolaryngology | Ulysses Genao MD | | | 2019 | Visit | | [address] [place] | | | | | | [address] [place], | | | | | | [place] [address] | | | | | | [phone] | | | | | | | | +--------+---------+ + + + | 02/15/ | Office | Internal Medicine | Alanis, | | | 2019 | Visit | | MD Petrona | | | | | | [address] [place] [address] [place] | | | | | | [place] [address] | | | | | | [phone] | | | | | | | | +--------+---------+ + + + documented as of this encounter Visit Diagnoses Not on filedocumented in this encounter"
--- OUTSIDE RECORDS SUMMARY | ~2019-11-17 | XMS | Encounter Summary ---
Demographics + + + | Address | [address] | | | [place] [address] | + + + | Home Phone [...] Providers + +------+ + | Care Certified Real Estate Appraiser Name | Role | [...] + | 07/30/ | Office | [facility] Comprehensive | Delfina Molina, | Cervical Spondylosis | | 2006 | Visit | Pain Center at | ANP | without Myelopathy | | | | [facility] | | (Primary Dx); Right | | | | [address] | | shoulder rotator | | | | Mailcode: CH15P | | cuff strain; | | | | [place] for [facility] | | Spondylosis with | | | | and Healing, | | Myelopathy, Lumbar | | | | Building | | Region; Herniated | | | | Floor [place], [place] | | Lumbar | | | | [address] | | Intervertebral Disc | | | | [phone] | | L4-5; Migraine | | | [...] these have helped improve function but not exterminator termite, and she reports sleeping poorly due to pain disru ption since prior visit. Since prior visit she had a 06/24/06: Bone density study and her T-Score -1.2 lumbar spine a nd -2.2 proximal femur. Collection Information Collection Date Collection Time Resulting Agency 03/10/2006 2:42 PM [facility] DEPARTMENT OF PATHOLOGY Component Results Component Value Range Status CALCIUM (LAB) 9.5 8.5 - 10.5 mg/dL Fin SPINE LUMBAR 2 VIEWS AT 1421 HOURS LUMBAR SPINE, 10/01/05 HISTORY: Back pain. FINDINGS: AP and lateral views of the lumbar spine show five aur-ejq-kwfoqgh lumbar vertebrae in normal alignment with no [...] spent in reviewing of chart, imaging and rehabilitation counselor ing/coordindation of care. 1. For the [...] appropriate care and safety for your patient, [facility] r equires a primary [...] Please indicate and fax your response to [phone]. I called and left a message on [facility] general voice mail requesting he call me to discuss prescribing and patient care. DELFINA MOLINA [facility] Mail code CH 4P [facility] and [address] [address] aurav Tasha - 07/30/2006 7:35 [...] | + +---------+ + + | [facility] DEPARTMENT OF | | | | | [...]
--- OUTSIDE RECORDS SUMMARY | ~2019-11-17 | XMS | Encounter Summary ---
Demographics + + + | Address | [address] | | | [place] [address] | + + + | Home Phone [...] Providers + +------+ + | Care Evp Of Products & Co Founder Name | Role | Phone | + [...] as of this encounter Progress Notes Interface, Head Cashier In - 01/11/2005 7:39 PM PDT Referred [...] 3-6 months time. She is coming from [place] so this can be scheduled on the same day of her physician visit. General surgery can schedule this. 5. Indra's business card with contact information for questions. Svetlana Maki R.D., LKyrie. SR/y39 P [id number] cc: documente d in this encounter Plan of Treatment Not on filedocumented as of this encounter Visit Diagnoses Not on filedocumented in this encounter"
--- OUTSIDE RECORDS SUMMARY | ~2019-11-17 | XMS | Encounter Summary ---
Demographics + + + | Address | [address] | | | [place] [address] | + + + | Home Phone [...] Team Providers + +------+ + | Care Charging Plug Placer Name | Role | Phone | [...] 08/12/ | Office | [facility] Center at [facility] | Lukasz Charles, | Major Depressive | | 2006 | Visit | [address] | PhD [address] | Disorder, Recurrent | | | | Mailcode: CH15P | [place], [place] | Episode, Moderate | | | | [place] [facility] | [address] | ([facility]); Neck Pain; | | | | and Healing, | [phone] | Migraine Headache; | | | | Building | | 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 Diagnosis: Hesperia I: 1. (296.32) Major depressive disorder, recurrent, moderate. 2. (309.24) Adjustment disorder with anxiety. 3. 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 Hesperia II: Deferred Hesperia III: abdominal pain, migraine headache, low back pain. Hesperia IV: low finances Hesperia V: GAF 50 Plan: Return in 2 weeks. Check pacing, relaxation, activity, distraction. Ask about coping with previous headache. Continue cognitive/behavioral therapy. Total time spent with patient was approximately 45 minutes. LUKASZ CHARLES [facility] [address] [facility] [place] [address] documented in this encount er Plan of [...]
--- OUTSIDE RECORDS SUMMARY | ~2019-11-17 | XMS | Encounter Summary ---
Demographics + + + | Address | [address] | | | [place] [address] | + + + | Home Phone [...] Team Providers + +------+ + | Care Pediatric Physical Therapy Assistant Name | Role | Phone | [...] + + | 11/09/ | Telephone | [facility] | Alanis, | Medical Problem | | 2018 | | MEDICINE [address] [place] [address] | MD Petrona | | | | | [facility] | [address] [place] [address] | | | | | [place] [address] | [place] [address] | | | | | [phone] | [phone] | | | | | | | [...] | Visit | | [facility] [address] | | | | | [address] [place] | | | | | | [place] [address] | | | | | | [phone] | | | | | | | | +--------+---------+ + + + | 12/20/ | Office | Otolaryngology | Ulysses Genao MD | | | 2019 | Visit | | [address] | | | | | | [address] [place], | | | | | | [place] [address] | | | | | | [phone] | | | | | | | | +--------+---------+ + + + | 02/15/ | Office | Internal Medicine | Alanis, | | | 2019 | Visit | | MD Petrona | | | | | | [address] [place] | | | | | | [place] [address] | | | | | | [phone] | | | | | | | | +--------+---------+ + + + documented as of this encounter Visit Diagnoses Not on filedocumented in this encounter"
--- OUTSIDE RECORDS SUMMARY | ~2019-11-17 | XMS | Encounter Summary ---
Demographics + + + | Address | [address] | | | [place] [address] | + + + | Home Phone [...] Providers + +------+ + | Care Custom Feed Mill Operator Helper Name | Role | Phone [...] | Services | Therapy | Other | [facility] | HOSPITAL | | | Required | | idiopathic | i, | PHYSICAL | | | | | scoliosis, | [facility] | THERAPY [address] | | | | | lumbar | , [address] | [place] | | | | | region | [address] | [place], [place] | | | | | Chronic | [place], | [address] | | | | | bilateral | [place] | Phone: | | | | | low back | [address] | [phone] | | | | | pain with | Phone: | Fax: | | | | | bilateral | [phone] | [phone] | | | | | sciatica | Fax: | | | | | | Procedures | [phone] | | | | | | 07/20 [...] + + | 07/18/ | Office | [facility] | Alanis, | Chronic bilateral | | 2020 | Visit | MEDICINE [address] [place] [address] | MD Petrona | low back pain with | | | | [address] | [address] [facility] | bilateral sciatica | | | | [place] [address] | [place] [address] | (Primary Dx); Other | | | | [phone] | [phone] | idiopathic | | | | | [...] issues: Patient recently did an MRI in [place], [place], after which she had a steroid [...] Common migraine COPD (chronic obstructive pulmonary disease) ([facility]) Depression Diarrhea Dumping syndrome Fall at home Fatigue fracture of vertebra Fibromyalgia Full dentures GERD (gastroesophageal reflux disease) Glaucoma Hyperparathyroidism ([facility]) Hypothyroidism IBS (irritable bowel syndrome) Idiopathic scoliosis Leg edema Low back pain Lumbar postlaminectomy syndrome Lumbar radiculopathy primarily right 01/04/2015 Meniere syndrome Migraine with aura Migraines Muscle cramping Muscle spasm Myalgia Nausea Nonalcoholic hepatosteatosis Obesity Opioid dependence ([facility]) Orthostatic hypotension OLIVER (obstructive sleep apnea) Osteoarthritis, generalized Osteopenia Osteoporosis Palpitations Peripheral neuropathy Rheumatoid arthritis ([facility]) Right arm pain 01/04/2015 RLS (restless [...] Procedure: COLONOSCOPY; Surgeon: Luther Brito MD; Location: [facility] MEDICAL PROCEDURE UNIT DILATION AND CURETTAGE OF UTERUS ELBOW SURGERY FINGER TRIGGER RELEASE 2002 FINGER TRIGGER RELEASE 2009 GASTRIC BYPASS SURGERY 2004 HYSTERECTOMY 05/14/1980 JOINT REPLACEMENT Bilateral 2006 2007 KNEE ARTHROSCOPY 2005 LAPAROSCOPY 01/27/2015 LAPAROTOMY 2008 ROTATOR CUFF REPAIR 2005 SPINE SURGERY TONSILLECTOMY 1964 UPPER GASTROINTESTINAL ENDOSCOPY N/A 12/18/2017 Procedure: EGD; Surgeon: Luther Brito MD; Location: [facility] MEDICAL PROCEDURE UNIT CURRENT MEDICATIONS [...] Allergen Reactions Ensure Diarrhea Food Diarrhea Lactose Tqccszmkmm-Pwz-Bxye-Codeine Other (See Comments) Balance problems Codeine Sulfate Nausea Only Food Allergy Formula Diarrhea Ensure Levofloxacin Hives, Itching and Rash Butalbital Ropinirole Amitriptyline Hcl Other (See Comments) Confused and questionable for seizures Yllcnjflmf-Vyfg-Lfbnocwn Rash duplicate Cevttwwntu-Wsnr-Iajnrgdf Hives and Rash Cephalexin Hives Ciprofloxacin Hives and Rash Clarithromycin Hives and Rash Clindamycin Hcl Hives and Rash Doxycycline Rash Duloxetine Other (See Comments) Migraines and nausea Ketorolac Hives Levofloxacin Hives and Rash Morphine Swelling Penicillins Hives and Rash Ropinirole Hcl Hives Sulfamethoxazole-Trimethoprim Hives and Rash Tramadol Hcl Nausea Only FOLLOW-UP No follow-ups on file. Notes: 1. Parts of this documentwere created using [employer] speech recognition software. As a resu lt, [...] | | | | | | [place] [address] | | | | | | [phone] | | | | | | | | +--------+---------+ + + + | 12/20/ | Office | Otolaryngology | Ulysses Genao MD | | | 2019 | Visit | | [address] | | | | | | [address] [place], | | | | | | [place] [address] | | | | | | [phone] | | | | | | | | +--------+---------+ + + + | 02/15/ | Office | Internal Medicine | Alanis, | | | 2019 | Visit | | MD [place] | | | | | | [address] [place] | | | | | | [place] [address] | | | | | | [phone] | | | | | | | [...] | | | | uIU/mL | [facility] | | | | | | MEDICAL [...] [address] | [place] | [phone] | | [facility] | | [address] | | | - LABORATORY | | [...] | | | | First dose on [facility] 10/15/17 at 1215 | | | [...]
--- OUTSIDE RECORDS SUMMARY | ~2019-11-17 | XMS | Encounter Summary ---
Demographics + + + | Address | [address] | | | [place] [address] | + + + | Home Phone [...] Team Providers + +------+ + | Care Mat Cutter Name | Role | Phone | [...] | Center [address] | [address] | | | | | [place] Mailcode: CH4S | Naeem [place] | | | | | [facility] | [place], [place] | | | | | and Healing, | [address] | | | | | [place] [address], [facility] | [phone] | | | | | Floor [place], [place] | | | | | | [address] | | | | | | [phone] | | | +--------+ + + + [...]
--- OUTSIDE RECORDS SUMMARY | ~2019-11-17 | XMS | Encounter Summary ---
Demographics + + + | Address | [address] | | | [place] [address] | + + + | Home Phone [...] Providers + +------+ + | Care Log Turner Name | Role | Phone | + [...] | | | [facility] | [place], [place] | | | | | [address] | [address] | | | | | [address] | [phone] | | | | | [facility] | | | | | | Physician's | | | | | | Pavilion [place], | | | | | | [place] [address] | | | | | | [phone] | | | +--------+--------+ + + + [...]
--- OUTSIDE RECORDS SUMMARY | ~2019-11-17 | XMS | Encounter Summary ---
Demographics + + + | Address | [address] | | | [place] [address] | + + + | Home Phone [...] Team Providers + +------+ + | Care Chamber Magistrate Name | Role | Phone | [...] | | | [facility] | [place], [place] | | | | | [address] | [address] | | | | | [address] | [phone] | | | | | [facility] | | | | | | Physician's | | | | | | Pavilion [place], | | | | | | [place] [address] | | | | | | [phone] | | | +--------+ + + + [...]
--- OUTSIDE RECORDS SUMMARY | ~2019-11-17 | XMS | Encounter Summary ---
Demographics + + + | Address | [address] | | | [place] [address] | + + + | Home Phone [...] + +------+ + | Care Human Resources Hr Representative Name | Role | Phone | [...] | | | [facility] | [place], [place] | and counseling | | | | [address] | [address] | | | | | [address] | [phone] | | | | | [facility] | | | | | | Physician's | | | | | | Pavilion [place], | | | | | | [place] [address] | | | | | | [phone] | | | +--------+ + + + [...]
--- OUTSIDE RECORDS SUMMARY | ~2019-11-17 | XMS | Encounter Summary ---
Demographics + + + | Address | [address] | | | [place] [address] | + + + | Home Phone [...] Team Providers + +------+ + | Care Turpentiner Name | Role | Phone | + [...] | | | | | Procedures | [address] | | | | | | CONSULT TO | Mychal Kovacs | | | | | | NEUROLOGY | [place], [place] | | | | | | | [address] | | +--------+--------+ + + + + Reason for Visit + + + | Reason | Comments | + + + | Back pain | | + + + Encounter Details +--------+---------+ + + + | Date | Type | Department | Care Team | Description | +--------+---------+ + + + | 10/03/ | Office | [facility] Comprehensive | Miranda Lambert, | Falling; | | 2009 | Visit | Pain Center at | ANP | Fibromyalgia; LBP | | | | [facility] | | (low back pain); | | | | [address] | | Encounter for | | | | Mailcode: CH15P | | Long-Term (Current) | | | | [facility] | | Use of Opioids; | | | | and Healing, | | Hypothyroidism; | | | | | | Metabolic syndrome X | | | | Floor [place], [place] | | 250.80; Major | | | | [address] | | depressive disorder, | | | | [phone] | | recurrent episode, | | | [...] Schedule an appointment with Dr. Cesar SHEEHAN [facility] Neurology - If you continue to fall [...] Belinda Meehan is a 49 y.o. female [facility] Comprehensive [...] drawing has be completed, which I reviewed. [facility] Brief Pain Inventory: (ten= worst possible pain [...] it no help 4. Dr. Ricky SHEEHAN [facility] spine did spine surgery last seen [...] 08/2007 right knee Hx lumbar fusion 05/2008 [id number] with bone spur removals Hx appendectomy Hx cholecystectomy Hx section Hx hysterectomy Gastric bypass Mayra Padgett wt 278 01/18 Paniculectomy Family History Problem Relation Cancer Mother Heart Father Additional Family History Father Migraine Additional Family History Mother Migraine Taniya Guerrero MD [facility] Neurology 2007 evaluation of migraines: Impression: Belinda [...] the names of 3 headache specialists in [place]- Dr. Koby García, Dr. Dakota Sweet and [...] a neurologist Dr. Taniya Guerrero here at [facility] at that time headaches were due to medication rebound with care home use of opioids and m igraine abortive [...] and there is no evidence to support care home benefit of opioids for this pa in [...] to schedule a follow up appointment with [facility] neurologists Dr. Guerrero, for falls workup. Dr. [...] to taper off gabapentin 2. Order for [facility] neurology Dr. Taniya Guerrero if falls [...] [facility] Mail code CH 4P [facility] [address] [place] [address] Ailyn Foster 1:03 PM PDTCMA History: [...]
--- OUTSIDE RECORDS SUMMARY | ~2019-11-17 | XMS | Encounter Summary ---
Demographics + + + | Address | [address] | | | [place] [address] | + + + | Home Phone [...] + + | 09/16/ | Telephone | [facility] | Alanis, | Results, Imaging | | 2018 | | MEDICINE [address] | MD Petrona | | | | | [facility] | [address] [place] [address] | | | | | [place] [address] | [place] [address] | | | | | [phone] | [phone] | | | | | | | [...] | | | | | [place] [address] | | | | | | [phone] | | | | | | | | +--------+---------+ + + + | 12/20/ | Office | Otolaryngology | Ulysses Genao MD | | | 2019 | Visit | | [address] | | | | | | [address] [place], | | | | | | [place] [address] | | | | | | [phone] | | | | | | | | +--------+---------+ + + + | 02/15/ | Office | Internal Medicine | Alanis, | | | 2019 | Visit | | MD Petrona | | | | | | [address] [place] [address] [address] | | | | | | [place] [address] | | | | | | [phone] | | | | | | | | +--------+---------+ + + + documented as of this encounter Visit Diagnoses Not on filedocumented in this encounter"
--- OUTSIDE RECORDS SUMMARY | ~2019-11-17 | XMS | Encounter Summary ---
Demographics + + + | Address | [address] | | | [place] [address] | + + + | Home Phone [...] Team Providers + +------+ + | Care Intellectual Property Counsel Name | Role | Phone | + [...] as of this encounter Progress Notes Interface, Storage Receipt Poster In - 01/12/2005 8:09 AM PDT [id number] [facility] Date: 02/27/2004 Clinic: [facility] Subjective: The patient underwent gastric bypass surgery in November 2003 under the care of Dr. Chris Padgett here at [facility]. She has been doing well after the [...] been scheduled through the Sleep Clinic in [place]. Medications 1. Ranitidine 150 mg p.o. b.i.d. [...] months. Issac Meeks M.D. MONIQUE / SHARIF [id number] / [id number] / [id number] / cc: Joanna Arshad M.D. [address] [facility] [place] [address] documented i n this encounter Plan of Treatment Not on filedocumented as of this encounter Visit Diagnoses Not on filedocumented in this encounter"
--- OUTSIDE RECORDS SUMMARY | ~2019-11-17 | XMS | Encounter Summary ---
Demographics + + + | Address | [address] | | | [place] [address] | + + + | Home Phone [...] + +------+ + | Care Lead Software Qa Engineer Name | Role | Phone | [...] + + | 12/20/ | Office | [facility] | Ulysses Genao MD | Meniere's disease of | | 2019 | Visit | OTOLARYNGOLOGY [address] | [address] | right ear (Primary | | | | [address] | [address] [place], | Dx); Benign | | | | [place] | [place] [address] | paroxysmal | | | | [address] | [phone] | positional vertigo, | | | | [phone] | | unspecified | | | | [...] tympanog ainsley were A tympanograms. Her speech medical receptionist threshold is 30 dB in the [...] sched uled for a Tayler maneuver in [place]. Extended time was spent with the patient.Electronic [...] | Visit | | [facility] [address] | | | | | | [facility] | | | | | | [place] [address] | | | | | | [phone] | | | | | | | | +--------+---------+ + + + | 12/20/ | Office | Otolaryngology | Ulysses Genao MD | | | 2019 | Visit | | [address] | | | | | | [address] [place], | | | | | | [place] [address] | | | | | | [phone] | | | | | | | | +--------+---------+ + + + | 02/15/ | Office | Internal Medicine | Alanis, | | | 2019 | Visit | | MD Petrona | | | | | | [address] [place] | | | | | | [place] [address] | | | | | | [phone] | | | | | | | | +--------+---------+ + + + documented as of this encounter Visit Diagnoses + + | Diagnosis | + + | Meniere's disease of right ear - Primary Meniere's disease, unspecified | + + | Benign paroxysmal positional vertigo, unspecified laterality | + + documented in this encounter
--- OUTSIDE RECORDS SUMMARY | ~2019-11-17 | XMS | Encounter Summary ---
Demographics + + + | Address | [address] | | | [place] [address] | + + + | Home Phone [...] + +------+ + | Care Correctional Case Records Supervisor Name | Role | Phone | [...] | | | | Clinical Nutrition | [place], [place] | | | | | [address] | [address] | | | | | Loop Mailcode: OPC5 | [phone] | | | | | Outpatient Clinic | | | | | | [facility], | | | | | | [place] [address] | | | | | | [phone] | | | +--------+ + + + [...]
--- OUTSIDE RECORDS SUMMARY | ~2019-11-17 | XMS | Encounter Summary ---
Demographics + + + | Address | [address] | | | [place] [address] | + + + | Home Phone [...] Providers + +------+ + | Care Job Coaching Name | Role | Phone | + [...] + | 02/15/ | Refill | [facility] | Alanis, | Medication Refill | | 2018 | | MEDICINE [address] [place] [address] | MD Petrona | | | | | [facility] | [address] [place] [address] | | | | | [place] [address] | [place] [address] | | | | | [phone] | [phone] | | | | | | | [...] | | | | | [place] [address] | | | | | | [phone] | | | | | | | | +--------+---------+ + + + | 12/20/ | Office | Otolaryngology | Ulysses Genao MD | | | 2019 | Visit | | [address] | | | | | | [address] [place], | | | | | | [place] [address] | | | | | | [phone] | | | | | | | | +--------+---------+ + + + | 02/15/ | Office | Internal Medicine | Alanis, | | | 2019 | Visit | | MD Petrona | | | | | | [address] [place] [address] [address] | | | | | | [place] [address] | | | | | | [phone] | | | | | | | | +--------+---------+ + + + documented as of this encounter Visit Diagnoses Not on filedocumented in this encounter"
--- OUTSIDE RECORDS SUMMARY | ~2019-11-17 | XMS | Encounter Summary ---
Demographics + + + | Address | [address] | | | [place] [address] | + + + | Home Phone [...] Team Providers + +------+ + | Care Woodworking Craftsman Name | Role | Phone | + [...] of this encounter Progress Notes Interface, Clinical Nurse Occupational Medicine In - 01/12/2005 10:09 AM PDT [id number] [facility] Date: 12/11/2004 Clinic: Telephone [...] sent to Ms. Meehan' home address at [facility] [address] [address]. The address was confirmed with Ms. Meehan prior to sending. Ms. Meehan has a followup appointment in Dr. Padgett's clinic on December 19, 2004. Nathalia Richard R.N., B.S.N. Liliya Kirkpatrick. / [id number] / [id number] / [id number] / Electronically signed by Nuris Chapman 12-20-2004 05:05:06 PM docushazia i n this encounter Plan of Treatment Not on filedocumented as of this encounter Visit Diagnoses Not on filedocumented in this encounter"
--- OUTSIDE RECORDS SUMMARY | ~2019-11-17 | XMS | Encounter Summary ---
Demographics + + + | Address | [address] | | | [place] [address] | + + + | Home Phone [...] Providers + +------+ + | Care Plant Maintenance Engineer Name | Role | Phone | [...] Mychal Kovacs | | | | | [facility] | [place], [place] | | | | | [address] | [address] | | | | | [address] | [phone] | | | | | Phys[facility] Pavilion | | | | | | Physician's | | | | | | Pavilion [place], | | | | | | [place] [address] | | | | | | [phone] | | | +--------+--------+ + + + [...]
--- OUTSIDE RECORDS SUMMARY | ~2019-11-17 | XMS | Encounter Summary ---
Demographics + + + | Address | [address] | | | [place] [address] | + + + | Home Phone [...] Providers + +------+ + | Care Export Freight Specialist Name | Role | Phone | + +------+ + | Petrona Thapa | PCP | | | MD | | | + +------+ + Reason for Visit + + + | Reason | Comments | + + + | Headache (Adult - | | | Recurrent Or Known | | | Dx Migraines) | | + + + Encounter Details +--------+ + + + + | Date | Type | Department | Care Team | Description | +--------+ + + + + | 08/26/ | Telephone | [facility] | Alanis, | Headache (Adult - | | 2018 | | MEDICINE [address] | MD Petrona | Recurrent Or Known | | | | [address] [place] | [address] [facility] | Dx Migraines) | | | | [place] [address] | [place] [address] | | | | | [phone] | [phone] | | | | | | | [...] | | | | | [place] [address] | | | | | | [phone] | | | | | | | | +--------+---------+ + + + | 12/20/ | Office | Otolaryngology | Ulysses Genao MD | | | 2019 | Visit | | [address] | | | | | | [address] [place], | | | | | | [place] [address] | | | | | | [phone] | | | | | | | | +--------+---------+ + + + | 02/15/ | Office | Internal Medicine | Alanis, | | | 2019 | Visit | | MD Petrona | | | | | | [address] [place] [address] | | | | | | [place] [address] | | | | | | [phone] | | | | | | | [...]
--- OUTSIDE RECORDS SUMMARY | ~2019-11-17 | XMS | Encounter Summary ---
Demographics + + + | Address | [address] | | | [place] [address] | + + + | Home Phone [...] Team Providers + +------+ + | Care Reserve Operator Name | Role | Phone | [...] as of this encounter Progress Notes Interface, Marketing Regional Consultant In - 03/29/2005 5:05 AM PDT [id number] [facility] Date: 03/20/2005 Clinic: Rheumatology [...] sense of disability is 5/10. Her case assembler needs a note from me that she [...] for the diagnosis of fibromyalgia by the [place]. She also has the [...] to treat restless legs. There is a rotary driller helper in [place] who is using large doses to reduce [...] 4 months. Caitlin Rivera M.S., F.N.P. / [id number] / [id number] / [id number] / [id number] cc: Pedrito Gutierrez M.D. [address] [place] [address] [place] [address] [facility] [address] Electronically signed by Caitlin Rivera 03-28-2005 01:43:14 PM documented i n this encounter Plan of Treatment Not on filedocumented as of this encounter Visit Diagnoses Not on filedocumented in this encounter"
--- OUTSIDE RECORDS SUMMARY | ~2019-11-17 | XMS | Encounter Summary ---
Demographics + + + | Address | [address] | | | [place] [address] | + + + | Home Phone [...] Providers + +------+ + | Care Instructional Paraprofessional Name | Role | Phone | + [...] Pavilion | | | | | | [place], [place] | | | | | | [address] | | | | | | [phone] | | | +--------+ + + + [...]
--- OUTSIDE RECORDS SUMMARY | ~2019-11-17 | XMS | Encounter Summary ---
Demographics + + + | Address | [address] | | | [place] [address] | + + + | Home Phone [...] Providers + +------+ + | Care Director East Coast Sales Name | Role | Phone | [...] as of this encounter Progress Notes Interface, Heel Stainer In - 08/30/2005 2:07 AM PST [id number] [facility] Date: 07/24/2005 Clinic: Surgery [...] for surgery. Chris Padgett M.D. ROSA / [id number] / [id number] / [id number] / [id number] Electronically signed by Chris Padgett 08-29-2005 03:28:14 PM documented i n this encounter Plan of Treatment Not on filedocumented as of this encounter Visit Diagnoses Not on filedocumented in this encounter"
--- OUTSIDE RECORDS SUMMARY | ~2019-11-17 | XMS | Encounter Summary ---
Demographics + + + | Address | [address] | | | [place] [address] | + + + | Home Phone [...] + +------+ + | Care Screen Printer Name | Role | Phone | [...] [address]aeem Mcrae | | | | | [facility] | [place], [place] | | | | | and [place], | [address] | | | | | [facility] , | [phone] | | | | | Floor [place], [place] | | | | | | [address] | | | | | | [phone] | | | +--------+ + + + [...]
--- OUTSIDE RECORDS SUMMARY | ~2019-11-17 | XMS | Encounter Summary ---
Demographics + + + | Address | [address] | | | [place] [address] | + + + | Home Phone [...] Team Providers + +------+ + | Care Open Developer Operator Name | Role | Phone | [...] + + | 02/09/ | Telephone | [facility] | Alanis, | Other | | 2019 | | MEDICINE [address] [place] [address] | MD Petrona | | | | | [facility] | [address] [place] [address] | | | | | [place] [address] | [place] [address] | | | | | [phone] | [phone] | | | | | | | [...] | | | | | [place] [address] | | | | | | [phone] | | | | | | | | +--------+---------+ + + + | 12/20/ | Office | Otolaryngology | Ulysses Genao MD | | | 2019 | Visit | | [address] | | | | | | [address] [place], | | | | | | [place] [address] | | | | | | [phone] | | | | | | | | +--------+---------+ + + + | 02/15/ | Office | Internal Medicine | Alanis, | | | 2019 | Visit | | MD Petrona | | | | | | [address] | | | | | | [place] [address] | | | | | | [phone] | | | | | | | | +--------+---------+ + + + documented as of this encounter Visit Diagnoses Not on filedocumented in this encounter"
--- OUTSIDE RECORDS SUMMARY | ~2019-11-17 | XMS | Encounter Summary ---
Demographics + + + | Address | [address] | | | [place] [address] | + + + | Home Phone [...] +------+ + | Care Research And Development Chemist Name | Role | Phone [...] | | | | | [address] | [place], [place] | | | | | [place], [place] | [address] | | | | | [address] | | | | | | [phone] | | | +--------+ + + + [...] Electronic Medical Record (EMR) system used by [facility] will be updated. The category used to file the infusion therapy plan currently ordered for this patient is to be discontinued. The changes to the order category within the EMR are administrative and in no way affect t he care of the patient. This encounter was created in the EMR to review the current orders for this patient and natalie rodriguez the necessary changes to insure continuity of care. Please contact the [facility] at with any questions [...] | | | | | [place] [address] | | | | | | [phone] | | | | | | | | +--------+---------+ + + + | 12/20/ | Office | Otolaryngology | Ulysses Genao MD | | | 2019 | Visit | | [address] | | | | | | [address] [place] | | | | | | [place] [address] | | | | | | [phone] | | | | | | | | +--------+---------+ + + + | 02/15/ | Office | Internal Medicine | Alanis, | | | 2019 | Visit | | MD Petrona | | | | | | [address] [place] | | | | | | [place] [address] | | | | | | [phone] | | | | | | | | +--------+---------+ + + + documented as of this encounter Visit Diagnoses Not on filedocumented in this encounter"
--- OUTSIDE RECORDS SUMMARY | ~2019-11-17 | XMS | Encounter Summary ---
Demographics + + + | Address | [address] | | | [place] [address] | + + + | Home Phone [...] Providers + +------+ + | Care Sales Assoc Name | Role | Phone | + [...] Lab findings, | | 2007 | | [facility] [address] | [address] | teaching, guidance, | | | | Ave Mailcode: [facility] | [address] | and counseling (labs | | | | [facility] | [place], [place] | done on 07/01/07) | | | | and Healing, | [address] | | | | | [facility] | [phone] | | | | | [place], [place] | | | | | | [address] | | | | | | [phone] | | | +--------+ + + + [...]
--- OUTSIDE RECORDS SUMMARY | ~2019-11-17 | XMS | Encounter Summary ---
Demographics + + + | Address | [address] | | | [place] [address] | + + + | Home Phone [...] Providers + +------+ + | Care Auto Locator Name | Role | Phone | + [...] 2006 | Visit | Rheumatology [address] | FIELD HEALTH OFFICER | (Primary Dx); | | | | [address]arm[address]illing | | Fibromyalgia; | | | | Mailcode: OPC5 | | Fibromyalgia | | | | Outpatient Clinic | | | | | | Building [place], | | | | | | [place] [address] | | | | | | [phone] | | | +--------+---------+ + + + [...] discomfort- entire abd around to back. Seeing [facility] pain clinic. Fentanyl patch helped pain [...]
--- OUTSIDE RECORDS SUMMARY | ~2019-11-17 | XMS | Encounter Summary ---
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
--- OUTSIDE RECORDS SUMMARY | ~2019-11-17 | XMS | Encounter Summary ---
Demographics + + + | Address | [address] | | | [place] [address] | + + + | Home Phone [...] Providers + +------+ + | Care Yard Person Name | Role | Phone | [...] | | | [facility] | [place], [place] | | | | | [address] | [address] | | | | | [address] | [phone] | | | | | Physician's | | | | | | Pavilion, [facility] floor | | | | | | [place], [place] | | | | | | [address] | | | | | | [phone] | | | +--------+ + + + [...] by | | | | | | [facility] | | | | | | Regional Laboratory. | | | | + + + + + + + + | Specimen | + + | | + + + + + + + | Performing | Address | City/State/Zipcode | Phone Number | | Organization | | | | + + + + + | [facility] | [address] | [place] [address] | | | LABORATORY | | | [...] pg/mL | | | | | [facility] | | | | | | Laboratory. | | | | + + + + + + + + | Specimen | + + | | + + + + + + + | Performing | Address | City/State/Zipcode | Phone Number | | Organization | | | | + + + + + | [facility] | [address] | [place] [address] | | | LABORATORY | | | [...] | [facility] | [address] | [place] [address] | | | PATHOLOGY | [address] | | | + + + + + | [facility] DEPARTMENT OF | [address] | [place] [address] | | | PATHOLOGY | [address] | | | + + + + + documented in this encounter Visit Diagnoses Not on filedocumented in this encounter"
--- OUTSIDE RECORDS SUMMARY | ~2019-11-17 | XMS | Encounter Summary ---
Demographics + + + | Address | [address] | | | [place] [address] | + + + | Home Phone [...] Providers + +------+ + | Care Poultry Hatchery Supervisor Name | Role | Phone | [...] [facility] | Alanis, | Personal Problem | | 2019 | | MEDICINE [address] | MD Petrona | (Rash in private | | | | [facility] | [address] [facility] | [facility]) | | | | [place] [address] | [place] [address] | | | | | [phone] | [phone] | | | | | | | [...] | | | | | [place] [address] | | | | | | [phone] | | | | | | | | +--------+---------+ + + + | 12/20/ | Office | Otolaryngology | Ulysses Genao MD | | | 2019 | Visit | | [address] | | | | | | [address] [place] | | | | | | [place] [address] | | | | | | [phone] | | | | | | | | +--------+---------+ + + + | 02/15/ | Office | Internal Medicine | Alanis, | | | 2019 | Visit | | MD Petrona | | | | | | [address] | | | | | | [place] [address] | | | | | | [phone] | | | | | | | | +--------+---------+ + + + documented as of this encounter Visit Diagnoses Not on filedocumented in this encounter"
--- OUTSIDE RECORDS SUMMARY | ~2019-11-17 | XMS | Encounter Summary ---
Demographics + + + | Address | [address] | | | [place] [address] | + + + | Home Phone [...] Team Providers + +------+ + | Care Forger Helper Name | Role | Phone | [...] | | | | [address] Physician's | [place], [place] | | | | | [address] | [address] | | | | | [place], [place] | [phone] | | | | | [address] | | | | | | [phone] | | | +--------+ + + + [...]
--- OUTSIDE RECORDS SUMMARY | ~2019-11-17 | XMS | Encounter Summary ---
Demographics + + + | Address | [address] | | | [place] [address] | + + + | Home Phone [...] Team Providers + +------+ + | Care State Inspector Name | Role | Phone | [...] as of this encounter Progress Notes Interface, [place] In - 01/12/2005 8:09 AM PDTClinic Date: [...] months. Chris Padgett M.D. ROSA / SHARIF [id number] / [id number] / [id number] / Tdocumented in this encounter Plan of Treatment Not on filedocumented as of this encounter Visit Diagnoses Not on filedocumented in this encounter"
--- OUTSIDE RECORDS SUMMARY | ~2019-11-17 | XMS | Encounter Summary ---
Demographics + + + | Address | [address] | | | [place] [address] [...] Providers + +------+ + | Care Oil Filters Inspector Name | Role | Phone | [...] + + | 09/03/ | Telephone | [facility] | Alanis, | Fall; Hip Pain | | 2019 | | MEDICINE [address] [place] [address] | MD Petrona | | | | | [facility] | [address] [place] [address] | | | | | [place] [address] | [place] [address] | | | | | [phone] | [phone] | | | | | | | [...] | | | | | [place] [address] | | | | | | [phone] | | | | | | | | +--------+---------+ + + + | 12/20/ | Office | Otolaryngology | Ulysses Geano MD | | | 2019 | Visit | | [address] | | | | | | [address] [place], | | | | | | [place] [address] | | | | | | [phone] | | | | | | | | +--------+---------+ + + + | 02/15/ | Office | Internal Medicine | Alanis, | | | 2019 | Visit | | MD Petrona | | | | | | [facility] [address] | | | | | | [place] [address] | | | | | | [phone] | | | | | | | | +--------+---------+ + + + documented as of this encounter Visit Diagnoses Not on filedocumented in this encounter"
--- OUTSIDE RECORDS SUMMARY | ~2019-11-17 | XMS | Encounter Summary ---
Demographics + + + | Address | [address] | | | [place] [address] | + + + | Home Phone [...] Providers + +------+ + | Care Mushroom Growing Supervisor Name | Role | Phone | [...] Rd | | | | | | [place], [place] | | | | | | [address] | | | +--------+ + + + [...]
--- OUTSIDE RECORDS SUMMARY | ~2019-11-17 | XMS | Encounter Summary ---
Demographics + + + | Address | [address] | | | [place] [address] | + + + | Home Phone [...] + +------+ + | Care Director Of Laboratory Operations Name | Role | Phone | [...] | | 2006 | Visit | [facility] | [address] | Pain; Cervical Pain; | | | | [address] [place], | Pain in Joint, Site | | | | [address] Mailcode: | [place] [address] | Unspecified; | | | | [facility] | | Depression | | | | Health and Healing, | | | | | | Building | | | | | | Floor [place], [place] | | | | | | [address] | | | | | | [phone] | | | +--------+---------+ + + + [...] EVALUATION NOTE Date: 06/23/2006 Name: Belinda Meehan [id number] y.o. female Start of Care: 06/23/2005 [...] the last few gregory hs. Handedness: right Remus: [place], [place] Chief Complaint: Headaches and cervical pain, bilateral [...]
--- OUTSIDE RECORDS SUMMARY | ~2019-11-17 | XMS | Encounter Summary ---
Demographics + + + | Address | [address] | | | [place] [address] | + + + | Home Phone [...] Providers + +------+ + | Care Executive Steward Name | Role | Phone | [...] Mychal Kovacs | | | | | [facility] | [place], [place] | | | | | [address] | [address] | | | | | [address] | [phone] | | | | | [facility] | | | | | | Physician's | | | | | | Pavilion [place], | | | | | | [place] [address] | | | | | | [phone] | | | +--------+ + + + [...]
--- OUTSIDE RECORDS SUMMARY | ~2019-11-17 | XMS | Encounter Summary ---
Demographics + + + | Address | [address] | | | [place] [address] | + + + | Home Phone [...] Providers + +------+ + | Care Certified Family Mediator Name | Role | Phone | + [...] | Osteopenia | MD Beto | Density [facility] | | | | | Procedures | [address] | [address] | | | | | CONSULT TO | Ave | Naeem Mcrae | | | | | BONE | [place], [place] | Rd Mailcode: | | | | | DENSITOMETRY | [address] | [address] | | | | | | Phone: | Naeem De La Rosa | | | | | | [phone] | [place], [place] | | | | | | Fax: | [address] | | | | | | [phone] | Phone: | | | | | | | [phone] | | | | | | | Fax: | | | | | | | [phone] | +--------+--------+ + + + + Reason [...] | | | [facility] | [facility] [place] | | | | | [address] | [address] | | | | | [address] | [phone] | | | | | [facility] | | | | | | Physician's | | | | | | Pavilion [place], | | | | | | [place] [address] | | | | | | [phone] | | | +--------+ + + + [...]
--- OUTSIDE RECORDS SUMMARY | ~2019-11-17 | XMS | Encounter Summary ---
Demographics + + + | Address | [address] | | | [place] [address] | + + + | Home Phone [...] Team Providers + +------+ + | Care Silk Screener Name | Role | Phone | + +------+ + | Sulaiman Carrera MD | PCP | | + +------+ + Encounter Details +--------+ + + + + | Date | Type | Department | Care Team | Description | +--------+ + + + + | 10/05/ | Ancillary | Registration [address]181 | Ramon Ibarra, | | | 2006 | Registratio | [facility] Naeem Mcrae | [address] [facility] | | | | n | [address] Mailcode: RPB07 | [place], [place] | | | | | [place], [place] | [address] | | | | | [address] | [phone] | | | | | [phone] | | | +--------+ + + + [...]
--- OUTSIDE RECORDS SUMMARY | ~2019-11-17 | XMS | Encounter Summary ---
Demographics + + + | Address | [address] | | | [place] [address] | + + + | Home Phone [...] Providers + +------+ + | Care Business Analyst Sales Operations Name | Role | Phone | [...] | y | Vertigo | Emmy-Tajt | EMD [address] | | | Required | | Procedures | i, | [address] | | | | | 6/ APRIL | Petrona | [address] | | | | | PENDING | MD [address] | [place], | | | | | | [address] | [place] [address] | | | | | | [place], | Phone: | | | | | | [place] | [phone] | | | | | | [address] | Fax: | | | | | | Phone: | [phone] | | | | | | [phone] | | | | | | | Fax: | | | | | | | [phone] | | +--------+ + + + + + Encounter Details +--------+---------+ + + + | Date | Type | Department | Care Team | Description | +--------+---------+ + + + | 12/30/ | Office | [facility] | Ulysses Genao MD | Benign paroxysmal | | 2018 | Visit | OTOLARYNGOLOGY [address] | [address] | positional vertigo, | | | | [address] | [address] [place], | unspecified | | | | [place], [place] | [place] [address] | laterality (Primary | | | | [address] | [phone] | Dx); Dysfunction of | | | | [phone] | | left eustachian tube | +--------+---------+ [...] negative nichole ft to it. Her speech entry level receptionist threshold is 20 dB in the [...] | | | | | [place] [address] | | | | | | [phone] | | | | | | | | +--------+---------+ + + + | 12/20/ | Office | Otolaryngology | Ulysses Genao MD | | | 2019 | Visit | | [address] | | | | | | [address] [place], | | | | | | [place] [address] | | | | | | [phone] | | | | | | | | +--------+---------+ + + + | 02/15/ | Office | Internal Medicine | Alanis, | | | 2019 | Visit | | MD Petrona | | | | | | [address] [place] | | | | | | [place] [address] | | | | | | [phone] | | | | | | | [...]
--- OUTSIDE RECORDS SUMMARY | ~2019-11-17 | XMS | Encounter Summary ---
Demographics + + + | Address | [address] | | | [place] [address] | + + + | Home Phone [...] Providers + +------+ + | Care Assembler Crimper Name | Role | Phone | + +------+ + | Petrona Thapa | PCP | | | MD | | | + +------+ + Reason for Visit + + + | Reason | Comments | + + + | Pain Management | Sees pain clinic in [facility], Was switched to Simran [facility] | | | Transbuccal every 12 hrs [...] | Acquired | | | | [place] [address] | [place] [address] | hypothyroidism; | | | | [phone] | [phone] | Chronic bilateral | | | | [...] with Pain Management Sees pain clinic in [facility], Was switched to Belbuca 150mc Transbuccal every 12 hrs Results, Imaging HPI Belinda Praful Meehan is a 57 y.o. y/o female who presents today for f/u for several issues: Has had a visit w/ the pain in the [facility], [place], and they gave her a trial of [...] and has been on monthly B12 in [facility] for the last several months. REVIEW [...] ([facility]) Depression Diarrhea Dumping syndrome Fatigue [...] (See Comments) Confused and questionable for seizures Owavnvpebw-Lsxp-Ukkfenko Cephalexin Hives Ketorolac Hives Morphine Swelling Tramadol Hcl Nausea Only Aoauojptif-Cesq-Sgzvegud Hives and Rash Ciprofloxacin Hives and Rash [...] Note: Parts of this documentwere created using [employer] speech recognition software. As a r esult, [...] | | | | | | [place] [address] | | | | | | [phone] | | | | | | | | +--------+---------+ + + + | 12/20/ | Office | Otolaryngology | Ulysses Genao MD | | | 2019 | Visit | | [address] [facility] | | | | | | [address] [place], | | | | | | [place] [address] | | | | | | [phone] | | | | | | | | +--------+---------+ + + + | 02/15/ | Office | Internal Medicine | Alanis, | | | 2019 | Visit | | MD Petrona | | | | | | [address] [place] | | | | | | [place] [address] | | | | | | [phone] | | | | | | | [...]
--- OUTSIDE RECORDS SUMMARY | ~2019-11-17 | XMS | Encounter Summary ---
Demographics + + + | Address | [address] | | | [place] [address] | + + + | Home Phone [...] Team Providers + +------+ + | Care Engine Cleaner Name | Role | Phone | [...] | | | | [place], | [address] | | | | | | [place] | Phone: | | | | | | [address] | [phone] | | | | | | Phone: | Fax: | | | | | | [phone] | [phone] | | | | | | Fax: | | | | | | | [phone] | | +--------+ + + + + + Encounter Details +--------+---------+ + + + | Date | Type | Department | Care Team | Description | +--------+---------+ + + + | 11/16/ | Office | [facility] | Alanis, | Diarrhea, | | 2017 | Visit | GASTROENTEROLOGY | MD Petrona | unspecified type | | | | [address] | [address] [place] | (Primary Dx); | | | | [address] [place], [place] | [place] [address] | Chronic diarrhea; | | | | [address] | [phone] | S/P gastric bypass; | | | | [phone] | | Gastroesophageal | | | | | Luther Brito MD | reflux disease, | | | | | [address] | esophagitis presence | | | | | [place], [place] | not specified; | | | | | [address] | History of gastric | | | | | [phone] | ulcer; Abdominal | | | | | | pain, unspecified | | | | | | abdominal location; | | | | | | Narcotic dependence | | | | | | ([facility]); Obesity (BMI | | | | | [...] ordered and patient will complet e at [facility] in [place], orders were faxed; scheduled for egd/colon prop on 12/[address] Brito; advised to hold PPI day of procedure, she agreed. 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 documented in this encounter Plan of Treatment +--------+---------+ + + + | Date | Type | Specialty | Care Team | Description | +--------+---------+ + + + | 12/20/ | Office | Audiology | Dariokeyla ElisabetMS | | | 2019 | Visit | | [facility] [address] | | | | [address] [place] | | | | | | [place] [address] | | | | | | [phone] | | | | | | | | +--------+---------+ + + + | 12/20/ | Office | Otolaryngology | Ulysses Genao MD | | | 2019 | Visit | | [address] | | | | | | [address] [place], | | | | | | [place] [address] | | | | | | [phone] | | | | | | | | +--------+---------+ + + + | 02/15/ | Office | Internal Medicine | Alanis, | | | 2019 | Visit | | MD Petrona | | | | | | [address] [place] | | | | | | [place] [address] | | | | | | [phone] | | | | | | | [...]
--- OUTSIDE RECORDS SUMMARY | ~2019-11-17 | XMS | Encounter Summary ---
Demographics + + + | Address | [address] | | | [place] [address] | + + + | Home Phone [...] Team Providers + +------+ + | Care Harpooner Name | Role | Phone | + [...] Naeem Mcrae | | | | | [facility] | [place], [place] | | | | | and Healing, | [address] | | | | | [facility] 1, [facility] | [phone] | | | | | Floor [place], [place] | | | | | | [address] | | | | | | [phone] | | | +--------+ + + + [...]
--- OUTSIDE RECORDS SUMMARY | ~2019-11-17 | XMS | Encounter Summary ---
Demographics + + + | Address | [address] | | | [place] [address] | + + + | Home Phone [...] Providers + +------+ + | Care Government Employee Name | Role | Phone | + [...]
--- OUTSIDE RECORDS SUMMARY | ~2019-11-17 | XMS | Encounter Summary ---
Demographics + + + | Address | [address] | | | [place] [address] | + + + | Home Phone [...] Providers + +------+ + | Care Mechanical Meter Tester Name | Role | Phone | [...] Description | +--------+--------+ + + + | 04/09/ | Refill | [facility] | Alanis, | Medication Refill | | 2017 | | MEDICINE CHAMPAIGN | MD Petrona | | | | | [address] | [address] [facility] | | | | | [place] | [place] [address] | | | | | [address] | [phone] | | | | | [phone] | | | +--------+--------+ + + + [...] | | | | | [place] [address] | | | | | | [phone] | | | | | | | | +--------+---------+ + + + | 12/20/ | Office | Otolaryngology | Ulysses Genao MD | | | 2019 | Visit | | [address] | | | | | | [address] [place], | | | | | | [place] [address] | | | | | | [phone] | | | | | | | | +--------+---------+ + + + | 02/15/ | Office | Internal Medicine | Alanis, | | | 2019 | Visit | | MD Petrona | | | | | | [address] [place] | | | | | | [place] [address] | | | | | | [phone] | | | | | | | | +--------+---------+ + + + documented as of this encounter Visit Diagnoses Not on filedocumented in this encounter"
--- OUTSIDE RECORDS SUMMARY | ~2019-11-17 | XMS | Encounter Summary ---
Demographics + + + | Address | [address] | | | [place] [address] | + + + | Home Phone [...] Providers + +------+ + | Care Bench Manager Name | Role | Phone | [...] + + | 06/24/ | Telephone | [facility] | Alanis, | Medication Orders | | 2018 | | MEDICINE [address] [place] [address] | MD Petrona | | | | | [facility] | [address] [place] [address] | | | | | [place] [address] | [place] [address] | | | | | [phone] | [phone] | | | | | | | [...] | | | | | [place] [address] | | | | | | [phone] | | | | | | | | +--------+---------+ + + + | 12/20/ | Office | Otolaryngology | Ulysses Genao MD | | | 2019 | Visit | | [address] | | | | | | [address] [place], | | | | | | [place] [address] | | | | | | [phone] | | | | | | | | +--------+---------+ + + + | 02/15/ | Office | Internal Medicine | Alanis, | | | 2019 | Visit | | MD Petrona | | | | | | [address] [place] [address] [address] [place] | | | | | | [place] [address] | | | | | | [phone] | | | | | | | | +--------+---------+ + + + documented as of this encounter Visit Diagnoses Not on filedocumented in this encounter"
--- OUTSIDE RECORDS SUMMARY | ~2019-11-17 | XMS | Encounter Summary ---
Demographics + + + | Address | [address] | | | [place] [address] | + + + | Home Phone [...] Providers + +------+ + | Care Tar Leveler Name | Role | Phone | [...] Lab findings, | | 2007 | | [place] [address] | [address] | teaching, guidance, | | | | Ave Mailcode: CH4S | [address] | and counseling | | | | [facility] | [place], [place] | | | | | and Healing, | [address] | | | | | [facility] | [phone] | | | | | [place], [place] | | | | | | [address] | | | | | | [phone] | | | +--------+ + + + [...]
--- OUTSIDE RECORDS SUMMARY | ~2019-11-17 | XMS | Encounter Summary ---
Demographics + + + | Address | [address] | | | [place] [address] | + + + | Home Phone [...] Providers + +------+ + | Care Commercial Airplane Pilot Name | Role | Phone | [...] | | | | Clinical Nutrition | [place], [place] | | | | | [address] | [address] | | | | | Loop Mailcode: OPC5 | [phone] | | | | | Outpatient Clinic | | | | | | [facility] | | | | | | [place] [address] | | | | | | [phone] | | | +--------+ + + + [...] + + + | [facility] | [address] | [place] [address] | | | LABORATORY | | | [...] | uIU/ml | | | | | [facility] | | | | | | Laboratories. | | | | + + + + + + + + | Specimen | + + | | + + + + + + + | Performing | Address | City/State/Zipcode | Phone Number | | Organization | | | | + + + + + | [facility] | [address] | [place] [address] | | | LABORATORY | | | [...] | + + + + + | [facility] DEPARTMENT OF | [address] | [place] [address] | | | PATHOLOGY | [address] | | | + + + + + | [place] DEPARTMENT OF | [address] | [place] [address] | | | PATHOLOGY | [address] | | | + + + + + documented in this encounter Visit Diagnoses Not on filedocumented in this encounter"
--- OUTSIDE RECORDS SUMMARY | ~2019-11-17 | XMS | Encounter Summary ---
Demographics + + + | Address | [address] | | | [place] [address] | + + + | Home Phone [...] Providers + +------+ + | Care Office Chair Assembler Name | Role | Phone | [...] | [address] | [place], [place] | | | | | [place], [place] | [address] | | | | | [address] | | | | | | [phone] | | | +--------+ + + + [...] | | | | | [place] [address] | | | | | | [phone] | | | | | | | | +--------+---------+ + + + | 12/20/ | Office | Otolaryngology | Ulysses Genao MD | | | 2019 | Visit | | [address] | | | | | | [address] [place], | | | | | | [place] [address] | | | | | | [phone] | | | | | | | | +--------+---------+ + + + | 02/15/ | Office | Internal Medicine | Alanis, | | | 2019 | Visit | | MD Petrona | | | | | | [address] [place] | | | | | | [place] [address] | | | | | | [phone] | | | | | | | | +--------+---------+ + + + documented as of this encounter Visit Diagnoses Not on filedocumented in this encounter"
--- OUTSIDE RECORDS SUMMARY | ~2019-11-17 | XMS | Encounter Summary ---
Demographics + + + | Address | [address] | | | [place] [address] | + + + | Home Phone [...] Team Providers + +------+ + | Care Woodyard Operator Name | Role | Phone | + +------+ + | Petrona Thapa | PCP | | | MD | | | + +------+ + Encounter Details +--------+---------+ + + + | Date | Type | Department | Care Team | Description | +--------+---------+ + + + | 12/18/ | Surgery | [facility] | Luther Brito MD | EGD | | 2018 | | MED CTR MP INTRA OP | [address] | | | | | [address] | [place], [place] | | | | | [place], [place] | [address] | | | | | [address] | [phone] | | | | | [phone] | | | +--------+---------+ + + + [...] You can't be awakened Date Last Reviewed: 04/01/201619991334-5927 [employer]. [address] [place] [address]. All righ ts reserved. This information is [...] | | | | | [place] [address] | | | | | | [phone] | | | | | | | | +--------+---------+ + + + | 12/20/ | Office | Otolaryngology | Ulysses Genao MD | | | 2019 | Visit | | [address] | | | | | | [address] [place], | | | | | | [place] [address] | | | | | | [phone] | | | | | | | | +--------+---------+ + + + | 02/15/ | Office | Internal Medicine | Alanis, | | | 2019 | Visit | | MD Petrona | | | | | | [address] [place] | | | | | | [place] [address] | | | | | | [phone] | | | | | | | [...] 12/18/2017 | PROVATION | | 10:49 AMMRN: [id number] #: [id number] of : | | | 1960dmit Type: AmbulatoryAge: 57Room: [facility] 01Gender: FemaleNote | | | Status: [...] the anesthesiologist and the | | | radiation technician in the pre-procedure area in the [...] | appearing mucosa. This was traversed. The iqors-rr-xsraoax limb | | | was characterized by healthy appearing mucosa. The | | | jejunojejunal anastomosis was characterized by healthy | | | appearing mucosa. The huqnqfvi-bm-cvgnlby limb was not examined | | | [...] AMScope Out: | | | 11:08:34 AM [facility], [address] | | | [place] [address] | | | - Return to GI [...] |Scope Out: 11:08:34 AM | | | [facility], [address] [place], [place] | | | [address] | | + + -+ + +---------+ [...] 12/18/2017 | PROVATION | | 10:43 AMMRN: [id number] #: [id number] of : | | | 9Admit Type: AmbulatoryAge: 57Room: [facility] 01Gender: FemaleNote | | | Status: [...] the anesthesiologist and the | | | radiation technician in the pre-procedure area in the [...] Scope In: 11:12:28 AMScope Out: 11:56:57 AM [facility] | | | [facility], [address] [place] [address] | | | [phone] | | | - Await pathology results. [...] |Scope Out: 11:56:57 AM | | | [facility], [address] [place] [address], [place], [place] | | | [address] | | + + -+ + +---------+ [...] specific diagnostic abnormality. | | | VR:[facility]:C2NR GROSS DESCRIPTION: Received in five parts. | [...] | | slide preparation were performed by [place], [facility] | | | [address], [place] [address] (Beekeeper: Stephen Jacobson | | | Joanna CLIA#: [id number]). Professional interpretation was performed | | | by [place], [facility], [facility] | | | [place] [address] (Beekeeper: Stephen | | | Joanna Jacobson; CLIA#: [id number]). Diagnostician: Stephen Khan | | | Kavon [...]
--- OUTSIDE RECORDS SUMMARY | ~2019-11-17 | XMS | Encounter Summary ---
Demographics + + + | Address | [address] | | | [place] [address] | + + + | Home Phone [...] + + | 07/30/ | Hospital | [facility] | Ulysses Genao MD | | | 2011 - | Encounter | MED CTR OP REHAB | [address] | | | | | [address] [place] | [address] [place], | | | / | | [place] [address] | [place] [address] | | | 2011 | | [phone] | [phone] | | | | | | | [...] | | | | | [place] [address] | | | | | | [phone] | | | | | | | | +--------+---------+ + + + | 12/20/ | Office | Otolaryngology | Ulysses Genao MD | | | 2019 | Visit | | [address] | | | | | | [address] [place], | | | | | | [place] [address] | | | | | | [phone] | | | | | | | | +--------+---------+ + + + | 02/15/ | Office | Internal Medicine | Alanis, | | | 2019 | Visit | | MD [place]rona | | | | | | [address] [place] | | | | | | [place] [address] | | | | | | [phone] | | | | | | | | +--------+---------+ + + + documented as of this encounter Visit Diagnoses Not on filedocumented in this encounter"
--- OUTSIDE RECORDS SUMMARY | ~2019-11-17 | XMS | Encounter Summary ---
Demographics + + + | Address | [address] | | | [place] [address] | + + + | Home Phone [...] Providers + +------+ + | Care Government Affairs Researcher Name | Role | Phone | + +------+ + | Sulaiman Carrera MD | PCP | | + +------+ + Encounter Details +--------+ + + + + | Date | Type | Department | Care Team | Description | +--------+ + + + + | 09/10/ | Ancillary | Registration 3181 | Beto Meeks MD | | | 2004 | Registratio | [facility] | [address] | | | | n | [place] Mailcode: RPB07 | [place], [place] | | | | | [place], [place] | [address] | | | | | [address] | [phone] | | | | | [phone] | | | +--------+ + + + [...] + + + + + | [facility] | [address] | [place] [address] | | | LABORATORY | | | [...] | [facility] | [address] [facility] | [place] [address] | | | PATHOLOGY | [address] | | | + + + + + | [facility] | [address] | [place] [address] | | | PATHOLOGY | [address] [...] [facility]PARTMENT [facility] | [address] | [place] [address] | | | PATHOLOGY | [address] | | | + + + + + | [facility] DEPARTMENT [facility] | [address] | [place] [address] | | | PATHOLOGY | [address] [...] DEPARTMENT OF | [address] | [place] [address] | | | PATHOLOGY | [address] | | | + + + + + | [facility] DEPARTMENT OF | [address] | [place] [address] | | | PATHOLOGY | [address] | | | + + + + + documented in this encounter Visit Diagnoses Not on filedocumented in this encounter"
--- OUTSIDE RECORDS SUMMARY | ~2019-11-17 | XMS | Encounter Summary ---
Demographics + + + | Address | [address] | | | [place] [address] | + + + | Home Phone [...] Providers + +------+ + | Care Bi Data Modeler Name | Role | Phone | + [...] + + | 01/08/ | Telephone | [facility] | Alanis, | Results, Imaging | | 2017 | | MEDICINE [address] | MD Petrona | | | | | [facility] | [address] [place] [address] | | | | | [place] [address] | [place] [address] | | | | | [phone] | [phone] | | | | | | | [...] | | | | | [place] [address] | | | | | | [phone] | | | | | | | | +--------+---------+ + + + | 12/20/ | Office | Otolaryngology | Ulysses Genao MD | | | 2019 | Visit | | [address] [place] | | | | | | [address] [place], | | | | | | [place] [address] | | | | | | [phone] | | | | | | | | +--------+---------+ + + + | 02/15/ | Office | Internal Medicine | Alanis, | | | 2019 | Visit | | MD Petrona | | | | | | [address] [place] [address] [address] | | | | | | [place] [address] | | | | | | [phone] | | | | | | | | +--------+---------+ + + + documented as of this encounter Visit Diagnoses Not on filedocumented in this encounter"
--- OUTSIDE RECORDS SUMMARY | ~2019-11-17 | XMS | Encounter Summary ---
Demographics + + + | Address | [address] | | | [place] [address] | + + + | Home Phone [...] Providers + +------+ + | Care Customer Experience Leader Name | Role | Phone | [...] as of this encounter Progress Notes Interface, Athlete Manager In - 01/12/2005 8:09 AM PDT [id number] [facility] Date: 02/27/2004 Clinic: [facility] Subjective: The patient underwent gastric bypass surgery in November 2003 under the care of Dr. Chris Padgett here at [facility]. She has been doing well after [...] been scheduled through the Sleep Clinic in [place]. Medications 1. Ranitidine 150 mg p.o. b.i.d. [...] months. Issac Meeks M.D. MONIQUE / SHARIF [id number] / [id number] / [id number] / cc: Joanna Arshad M.D. [address] [facility] [place] [address] documented i n this encounter Plan of Treatment Not on filedocumented as of this encounter Visit Diagnoses Not on filedocumented in this encounter"
--- OUTSIDE RECORDS SUMMARY | ~2019-11-17 | XMS | Encounter Summary ---
Demographics + + + | Address | [address] | | | [place] [address] | + + + | Home Phone [...] Team Providers + +------+ + | Care Trekking Guide Name | Role | Phone | [...] + + | 07/16/ | Telephone | [facility] | Alanis, | Results, Imaging | | 2017 | | MEDICINE [address] | MD Petrona | | | | | [facility] | [address] [place] [address] | | | | | [place] [address] | [place] [address] | | | | | [phone] | [phone] | | | | | | | [...] | | [facility] [address] | | | | | | [address] [place] | | | | | | [place] [address] | | | | | | [phone] | | | | | | | | +--------+---------+ + + + | 12/20/ | Office | Otolaryngology | Ulysses Genao MD | | | 2019 | Visit | | [address] [place] | | | | | | [address] [place], | | | | | | [place] [address] | | | | | | [phone] | | | | | | | | +--------+---------+ + + + | 02/15/ | Office | Internal Medicine | Alanis, | | | 2019 | Visit | | MD Petrona | | | | | | [address] [place] [address] [address] | | | | | | [place] [address] | | | | | | [phone] | | | | | | | | +--------+---------+ + + + documented as of this encounter Visit Diagnoses Not on filedocumented in this encounter"
--- OUTSIDE RECORDS SUMMARY | ~2019-11-17 | XMS | Encounter Summary ---
Demographics + + + | Address | [address] | | | [place] [address] | + + + | Home Phone [...] Providers + +------+ + | Care Sample Collector Name | Role | Phone | + [...] + + | 02/24/ | Refill | [facility] | Alanis, | Medication Refill | | 2017 | | MEDICINE [address] [place] [address] | MD Petrona | | | | | [facility] | [address] [place] [address] | | | | | [place] [address] | [place] [address] | | | | | [phone] | [phone] | | | | | | | [...] | | | | | [place] [address] | | | | | | [phone] | | | | | | | | +--------+---------+ + + + | 12/20/ | Office | Otolaryngology | Ulysses Genao MD | | | 2019 | Visit | | [address] [place] | | | | | | [address] [place], | | | | | | [place] [address] | | | | | | [phone] | | | | | | | | +--------+---------+ + + + | 02/15/ | Office | Internal Medicine | Alanis, | | | 2019 | Visit | | MD Petrona | | | | | | [address] [place] [address] [address] | | | | | | [place] [address] | | | | | | [phone] | | | | | | | | +--------+---------+ + + + documented as of this encounter Visit Diagnoses Not on filedocumented in this encounter"
--- OUTSIDE RECORDS SUMMARY | ~2019-11-17 | XMS | Encounter Summary ---
Demographics + + + | Address | [address] | | | [place] [address] | + + + | Home Phone [...] Providers + +------+ + | Care Legal Operations Manager Name | Role | Phone | + +------+ + | Petrona Thapa | PCP | | | MD | | | + +------+ + Encounter Details +--------+ + + + + | Date | Type | Department | Care Team | Description | +--------+ + + + + | 11/14/ | Hospital | [facility] | Alanis, | Toe pain, chronic, | | 2019 | Encounter | [facility] | MD Petrona | left | | | | [address] [place] | [address] [facility] | | | | | [place] | [place] [address] | | | | | [address] | [phone] | | | | | [phone] | | | +--------+ + + + [...] | | | | | | : lobsterman | Decreased | | | | | [...] 2019 | Visit | | [facility] [address] | | | | | | [address] [place] | | | | | | [place] [address] | | | | | | [phone] | | | | | | | | +--------+---------+ + + + | 12/20/ | Office | Otolaryngology | Ulysses Genao MD | | | 2019 | Visit | | [address] [place] | | | | | | [address] [place], | | | | | | [place] [address] | | | | | | [phone] | | | | | | | | +--------+---------+ + + + | 02/15/ | Office | Internal Medicine | Alanis, | | | 2019 | Visit | | MD Petrona | | | | | | [address] [place] | | | | | | [place] [address] | | | | | | [phone] | | | | | | | [...]
--- OUTSIDE RECORDS SUMMARY | ~2019-11-17 | XMS | Encounter Summary ---
Demographics + + + | Address | [address] | | | [place] [address] | + + + | Home Phone [...] Providers + +------+ + | Care Associate Publisher Name | Role | Phone | + [...] as of this encounter Progress Notes Interface, Costumed Character In - 10/15/2005 2:06 AM PDT [id number] [facility] Date: 09/18/2005 Clinic: Ms. [...] about a month. Chris Padgett M.D. / [id number] / [id number] / [id number] / [id number] Electronically signed by Chris Padgett 10-14-2005 08:13:46 AM documented i n this encounter Plan of Treatment Not on filedocumented as of this encounter Visit Diagnoses Not on filedocumented in this encounter"
--- OUTSIDE RECORDS SUMMARY | ~2019-11-17 | XMS | Encounter Summary ---
Demographics + + + | Address | [address] | | | [place] [address] | + + + | Home Phone [...] Team Providers + +------+ + | Care Patent Attorney Name | Role | Phone | [...] as of this encounter Progress Notes Interface, Insulation Sprayer In - 09/13/2005 2:06 AM PST [id number] [facility] Date: 07/03/2005 Clinic: [...] which are pending through the laboratory in [place]. Allergies: PENICILLIN, CODEINE, KEFLEX, SULFA, CIPRO, AND [...] which were done several days ago in [place]. Beto Meeks M.D. PD / HS [id number] / [id number] / [id number] / [id number] cc: Chris Padgett M.D. [facility] Electronically signed by Beto Meeks 09-12-2005 02:23:07 AM documented i n this encounter Plan of Treatment Not on filedocumented as of this encounter Visit Diagnoses Not on filedocumented in this encounter"
--- OUTSIDE RECORDS SUMMARY | ~2019-11-17 | XMS | Encounter Summary ---
Demographics + + + | Address | [address] | | | [place] [address] | + + + | Home Phone [...] Providers + +------+ + | Care Juvenile Correctional Officer Name | Role | Phone | [...] | | | [facility] | [place], [place] | | | | | [address] | [address] | | | | | [address] | [phone] | | | | | [facility] | | | | | | Physician's | | | | | | Pavilion [place], | | | | | | [place] [address] | | | | | | [phone] | | | +--------+ + + + [...]
--- OUTSIDE RECORDS SUMMARY | ~2019-11-17 | XMS | Encounter Summary ---
Demographics + + + | Address | [address] | | | [place] [address] | + + + | Home Phone [...] Providers + +------+ + | Care Medical Office Supervisor Name | Role | Phone | [...] + + | 02/25/ | Telephone | [facility] | Alanis, | Pain | | 2019 | | MEDICINE [address] [place] [address] | MD Petrona | | | | | [place] | [address] [place] [address] | | | | | [place] [address] | [place] [address] | | | | | [phone] | [phone] | | | | | | | [...] | 2019 | Visit | | [facility] [address] | | | | | | [address] [place] | | | | | | [place] [address] | | | | | | [phone] | | | | | | | | +--------+---------+ + + + | 12/20/ | Office | Otolaryngology | Ulysses Genao MD | | | 2019 | Visit | | [address] [place] | | | | | | [address] [place], | | | | | | [place] [address] | | | | | | [phone] | | | | | | | | +--------+---------+ + + + | 02/15/ | Office | Internal Medicine | Alanis, | | | 2019 | Visit | | MD Petrona | | | | | | [address] | | | | | | [place] [address] | | | | | | [phone] | | | | | | | | +--------+---------+ + + + documented as of this encounter Visit Diagnoses Not on filedocumented in this encounter"
--- OUTSIDE RECORDS SUMMARY | ~2019-11-17 | XMS | Encounter Summary ---
Demographics + + + | Address | [address] | | | [place] [address] | + + + | Home Phone [...] Providers + +------+ + | Care Gravity Prospecting Operator Name | Role | Phone | [...] + + | 09/03/ | Telephone | [facility] | [place]is, | Fall; Hip Pain | | 2019 | | MEDICINE [address] [place] [address] | MD Petrona | | | | | [facility] | [address] [place] [address] | | | | | [place] [address] | [place] [address] | | | | | [phone] | [phone] | | | | | | | [...] | | | | | [place] [address] | | | | | | [phone] | | | | | | | | +--------+---------+ + + + | 12/20/ | Office | Otolaryngology | Ulysses Genao MD | | | 2019 | Visit | | [address] [place] | | | | | | [address] [place], | | | | | | [place] [address] | | | | | | [phone] | | | | | | | | +--------+---------+ + + + | 02/15/ | Office | Internal Medicine | Alanis, | | | 2019 | Visit | | MD Petrona | | | | | | [facility] [address] | | | | | | [place] [address] | | | | | | [phone] | | | | | | | | +--------+---------+ + + + documented as of this encounter Visit Diagnoses Not on filedocumented in this encounter"
--- OUTSIDE RECORDS SUMMARY | ~2019-11-17 | XMS | Encounter Summary ---
Demographics + + + | Address | [address] | | | [place] [address] | + + + | Home Phone [...] + +------+ + | Care Director Of Accounts Payable Name | Role | Phone | + [...] + + | 05/04/ | Refill | [facility] | Alanis, | Medication Refill | | 2016 | | MEDICINE [address] [place] [address] | MD Petrona | | | | | [facility] | [address] [place] [address] | | | | | [place] [address] | [place] [address] | | | | | [phone] | [phone] | | | | | | | [...] | | | | | [place] [address] | | | | | | [phone] | | | | | | | | +--------+---------+ + + + | 12/20/ | Office | Otolaryngology | Ulysses Genao MD | | | 2019 | Visit | | [address] [place] | | | | | | [address] [place], | | | | | | [place] [address] | | | | | | [phone] | | | | | | | | +--------+---------+ + + + | 02/15/ | Office | Internal Medicine | Alanis, | | | 2019 | Visit | | MD Petrona | | | | | | [address] [place] [address] [address] | | | | | | [place] [address] | | | | | | [phone] | | | | | | | | +--------+---------+ + + + documented as of this encounter Visit Diagnoses Not on filedocumented in this encounter"
--- OUTSIDE RECORDS SUMMARY | ~2019-11-17 | XMS | Encounter Summary ---
Demographics + + + | Address | [address] | | | [place] [address] | + + + | Home Phone [...] Providers + +------+ + | Care Cheese Cutter Name | Role | Phone | [...] of this encounter Progress Notes Interface, Field Professional In - 12/07/2005 3:08 AM [facility] [place] [address] [place], [place] [address] or January 31, 2003 Pedrito Gutierrez M.D. [address] [place] [address] RE: BELINDA MEEHAN MR #: [id number] Dear Dr. Gutierrez: I had the pleasure [...] She had surgery 5 days ago in [place] on her right hand and wrist, for [...] time to help minimize her travel to [place]. In the meantime, please feel free to contact me if you have other questions, concerns, or suggestions regarding her condition. Sincerely, Issac Meeks M.D. packing and stamping machine operator Division of Endocrinology, Diabetes, and Clinical Nutrition, Director of Metabolic Disorders Clinic MONIQUE / SHARIF [id number] / [id number] / [id number] / Tdocumented in this encounter Plan of Treatment Not on filedocumented as of this encounter Visit Diagnoses Not on filedocumented in this encounter"
--- OUTSIDE RECORDS SUMMARY | ~2019-11-17 | XMS | Encounter Summary ---
Demographics + + + | Address | [address] | | | [place] [address] | + + + | Home Phone [...] Team Providers + +------+ + | Care Consignee Name | Role | Phone | + [...] | Pain | Diagnoses | Emmy | Tube Draw Helper Chh1 | | | | Management | [...] | | | | | Meniere's | [address] | Building | | | | | disease, | Phone: | [address] | | | | | bilateral | [phone] | [place], [place] | | | | | Rheumatoid | Fax: | [address] | | | | | arthritis, | [phone] | Phone: | | | | | unspecified | | [phone] | | | | | | | Fax: | | | | | Postlaminect | | [phone] | | | | | toya | [...] + + | 02/05/ | Office | [facility] Comprehensive | Shalonda Garcia, | Post laminectomy | | 2017 | Visit | Pain Center at | TOWEL ROLLING MACHINE OPERATOR [address] | syndrome (Primary | | | | [facility] | [place], [place] | Dx); Intractable | | | | [address] | [address] | chronic migraine | | | | Mailcode: CH15P | [phone] | without aura and | | | | [facility] for [facility] | | with status | | | | and Healing, | | migrainosus; | | | | | | Fibromyalgia | | | | Floor [place], [place] | | | | | | [address] | | | | | | [phone] | | | +--------+---------+ + + + [...] Discuss with your PCP, a referral to [facility] for discussion regarding spinal cord stimulator Shalonda Mustafa DNP, TOWEL ROLLING MACHINE OPERATOR-C Adult Pain Service /Comprehensive [facility] [place] [address] documented in this encounter Progress Notes Amie Jing - 02/05/2017 1:35 PM PDT Date: 02/05/2017 was referred for pain management consultation by Sulaiman Whitlock MD [address] [place] [address] Reason for consult: cervical radiculopathy, low back [...] by her primary care pr magdy in [facility]. This provider is currently in the process of re-opening a new clinic and may be available to see patients next month. She reports that this provider d oes not wish to continue prescribing her pain medication and has instructed her to find anot her provided to take over her pain prescriptions. She was previously a patient at a pain cli brigida in [facility], however her insurance changed and she no longer has coverage at this clinic. 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 She feels she is at the point where is not able to determine which medications are hel pful in improving her pain. She endorses incontinence symptoms. She reports there are "days I just want to " because her pain is so bad. 's treatment for this pain complaint has included: MEDICATIONS: - Gabapentin - Hugo - Butran - Cymbalta - Fentanyl Patches NON-MEDICATION THERAPIES: - Physical Therapy - Exercise - Heat/Ice - Pool Therapy - Brace/Support - TENS INTERVENTIONS: - Spinal surgery x3, Laminectomy unknown level - Epidural Steroid Injections - Trigger Point Injections lives in a single family home in [place], [place]. She is not currently working , she receives disability. As a result of her pain, notes multiple changes in her life, including limiting her ability to perform routine tasks. 's goals from today's appointment include: consultation only (advice only to you and your primary care physician), counseling, drug treatment, help in coping with the pain a nd stress management. 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 Headache HTN (hypertension) Hypothyroidism 11/11/2006 IBS (irritable bowel syndrome) Internal hemorrhoid Kidney stone Major depressive disorder, recurrent episode, moderate ([facility]) 07/31/2006 Metabolic syndrome X 250.80 Metabolic syndrome X 250.80 Optic nerve hemorrhage left eye Other general symptoms Pneumonia PUD (peptic ulcer disease) RA (rheumatoid arthritis) ([facility]) Radiculitis, lumbosacral 03/03/2008 Reduced vision Scoliosis Sleep apnea Spondylosis with myelopathy, lumbar region 07/02/2006 Vertebral fracture T7,8,9 Xray T spine 2003 Past Surgical History Procedure Laterality Date Salpingo-oophorectomy Colonoscopy 03/2006 Tonsillectomy Pr d&c after delivery Pr inject trigger point, 1 or 2 Knee replacement 02/2007 Left knee Knee replacement 08/2007 right knee Lumbar fusion 05/2008, '11 & '12 L5-M8bwbdth with bone spur removals Appendectomy Cholecystectomy section [...] Hives Mainly in the legs Clindamycin Codeine Xhgwnme-Vvjarokzfw-Pve-Caff Balance problems Fioricet W/Codeine [Yszhjgntne-Yxlrlmmkjo-Wdy-Cod] Keflex [Cephalexin] Ketorolac Unknown Morphine IM ( only in [facility]) made gut pain worse 08/27/06: [...] and summary of old medical records (source: [facility]), as summarized in the body of the [...] by her primary care pr magdy in [facility]. She reports that this provider does [...] Whitlock MD may consider a referral to [facility] for discu ssion regarding spinal cord stimulator -No follow up needed at this time 02/05/2017: I, Kathleen Riley am functioning as a medical staff coordinator for MEGAN Dutta DNP I have reviewed and verified the above scribed note of my visit with this patient as record ed by Kathleen Riley. Shalonda Mustafa DNP, FNP-C Adult Pain Service /[facility] [address] [place] [address] Maris Costa MA - 02/05/2017 1:35 PM [...]
--- OUTSIDE RECORDS SUMMARY | ~2019-11-17 | XMS | Encounter Summary ---
Demographics + + + | Address | [address] | | | [place] [address] | + + + | Home Phone [...] Team Providers + +------+ + | Care Crester Name | Role | Phone | + +------+ + PCP | Unavailable | + +------+ + Encounter Details +--------+ + + + + | Date | Type | Department | Care Team | Description | +--------+ + + + + | 09/14/ | Hospital | [facility] | Ruben Tobias | | | 2001 | Encounter | MED CTR SLEEP | MD Raji [address] | | | | | [place] [address] | [address] [facility] | | | | | [place], [place] | [place] [address] | | | | | [address] | [phone] | | | | | [phone] | | | +--------+ + + + [...] | | | | | [place] [address] | | | | | | [phone] | | | | | | | | +--------+---------+ + + + | 12/20/ | Office | Otolaryngology | Ulysses Genao MD | | | 2019 | Visit | | [address] [place] | | | | | | [address] [place], | | | | | | [place] [address] | | | | | | [phone] | | | | | | | | +--------+---------+ + + + | 02/15/ | Office | Internal Medicine | [place], | | | 2019 | Visit | | MD Petrona | | | | | | [address] [place] | | | | | | [place] [address] | | | | | | [phone] | | | | | | | | +--------+---------+ + + + documented as of this encounter Visit Diagnoses Not on filedocumented in this encounter"
--- OUTSIDE RECORDS SUMMARY | ~2019-11-17 | XMS | Encounter Summary ---
Demographics + + + | Address | [address] | | | [place] [address] | + + + | Home Phone [...] + +------+ + | Care Geographic Information System Analyst Name | Role | Phone [...] + + | 09/14/ | Clinical | [facility] | [place], | B12 deficiency | | 2019 | Support | MEDICINE [address] [place] [address] | MD Petrona | | | | | [facility] | [address] [place] [address] | | | | | [place] [address] | [place] [address] | | | | | [phone] | [phone] | | | | | | | [...] as of this encounter Progress Teresa Tolbert, Editorial Clerk - 09/15/2019 10:15 AM PDTFormatting of this note calderon ht be different from the original. Administrations This Visit cyanocobalamin (VITAMIN B-12) injection 1,000 mcg Admin Date 09/15/2019 Action Given Dose 1000 mcg Route Intramuscular Administered By Teresa Mitchell, Editorial Clerk do cumented in this encounter Plan of Treatment +--------+---------+ + + + | Date | Type | Specialty | Care Team | Description | +--------+---------+ + + + | 12/20/ | Office | Audiology | Elisabet Munson MS | | 2019 | Visit | | [facility] [address] | | | | | | [place] | | | | | | [place] [address] | | | | | | [phone] | | | | | | | | +--------+---------+ + + + | 12/20/ | Office | Otolaryngology | Ulysses Genao MD | | | 2019 | Visit | | [address] | | | | | | [address] [place], | | | | | | [place] [address] | | | | | | [phone] | | | | | | | | +--------+---------+ + + + | 02/15/ | Office | Internal Medicine | [place], | | | 2019 | Visit | | MD [place] | | | | | | [address] [place] | | | | | | [place] [address] | | | | | | [phone] | | | | | | | [...] | | | | First dose on [facility] 10/15/17 at 1215 | | | | | | + +--------+ +--------+------+ + +-------+ +--------+---+ + | Given | 09/15/19 | 1,000 | | Deltoid- | | | 20 10:23 | mcg | | Right | | | AM PDT | | | | +-------+ +--------+---+ + | Given | 03/02/20 | 1,000 | | Deltoid- | | | 20 9:20 | mcg | | Right | | | AM PST | | | | +-------+ +--------+---+ + +---+---+ | | | +---+---+ documented in this encounter"
--- OUTSIDE RECORDS SUMMARY | ~2019-11-17 | XMS | Encounter Summary ---
Demographics + + + | Address | [address] | | | [place] [address] [...] as of this encounter Progress Notes Interface, Spreader In - 11/19/2005 3:09 AM PDT [place] [facility] [address] [place] [address] or May 09, 2003 Pedrito Gutierrez M.D. [address] [place] [address] RE: BELINDA MEEHAN MR #: [id number] Dear Dr. Gutierrez: I had the pleasure [...] this testing done through your clinic in [place]. I will plan to see her again [...] regarding her condition. Sincerely, Issac Meeks M.D. personnel analyst, Division of Endocrinology, Diabetes, and Clinical Explosive Ordnance Manager, Metabolic Disorders Clinic PBD / HS [id number] / [id number] / [id number] / Tdocumented in this encounter Plan of Treatment Not on filedocumented as of this encounter Visit Diagnoses Not on filedocumented in this encounter"
--- OUTSIDE RECORDS SUMMARY | ~2019-11-17 | XMS | Encounter Summary ---
Demographics + + + | Address | [address] | | | [place] [address] | + + + | Home Phone [...] Team Providers + +------+ + | Care Typing Office Worker Name | Role | Phone [...] [address] | | | | | [facility] | [place], [place] | | | | | [address] | [address] | | | | | [address] | [phone] | | | | | [facility] | | | | | | Physician's | | | | | | Pavilion [place], | | | | | | [place] [address] | | | | | | [phone] | | | +--------+--------+ + + + [...]
--- OUTSIDE RECORDS SUMMARY | ~2019-11-17 | XMS | Encounter Summary ---
Demographics + + + | Address | [address] | | | [place] [address] | + + + | Home Phone [...] + +------+ + | Care High School History Teacher Name | Role | Phone | [...] [address] | | | | | [place], [place] | [place], [place] | | | | | [address] | [address] | | | | | [phone] | [phone] | | | | | | | [...]
--- OUTSIDE RECORDS SUMMARY | ~2019-11-17 | XMS | Encounter Summary ---
Demographics + + + | Address | [address] | | | [place] [address] | + + + | Home Phone [...] Team Providers + +------+ + | Care Volleyball Assistant Coach Name | Role | Phone | [...] 2006 | Visit | Rheumatology [address] | RETAIL ASSISTANT MANAGER | Fibromyalgia; | | | | [address] | | Fibromyalgia | | | | Mailcode: OPC5 | | | | | | Outpatient Clinic | | | | | | [facility], | | | | | | [place] [address] | | | | | | [phone] | | | +--------+---------+ + + + [...] 4-5/5 for all major deltoids, biceps, triceps. Driver Starting Gate slightly weak. Tone is normal. There is [...] spine MRI to be done at [facility]. A few of these patients have been [...]
--- OUTSIDE RECORDS SUMMARY | ~2019-11-17 | XMS | Encounter Summary ---
Demographics + + + | Address | [address] | | | [place] [address] | + + + | Home Phone [...] Providers + +------+ + | Care Flight Director Name | Role | Phone | [...] Description | +--------+--------+ + + + | 11/16/ | Refill | [facility] | Alanis, | Medication Refill | | 2019 | | MEDICINE [address] | MD [place] | | | | | [facility] | [address] [place] [address] | | | | | [place] [address] | [place] [address] | | | | | [phone] | [phone] | | | | | | | [...] | | | | | [place] [address] | | | | | | [phone] | | | | | | | | +--------+---------+ + + + | 12/20/ | Office | Otolaryngology | Ulysses Genao MD | | | 2019 | Visit | | [address] [place] | | | | | | [address] [place], | | | | | | [place] [address] | | | | | | [phone] | | | | | | | | +--------+---------+ + + + | 02/15/ | Office | Internal Medicine | Alanis, | | | 2019 | Visit | | MD [place] | | | | | | [address] [place] [address] [address] | | | | | | [place] [address] | | | | | | [phone] | | | | | | | | +--------+---------+ + + + documented as of this encounter Visit Diagnoses Not on filedocumented in this encounter"
--- OUTSIDE RECORDS SUMMARY | ~2019-11-17 | XMS | Encounter Summary ---
Demographics + + + | Address | [address] | | | [place] [address] | + + + | Home Phone [...] Providers + +------+ + | Care Staff Scientist Name | Role | Phone | [...] [id number] | | | | | | [place], [place] | | | | | | [address] | | | | | | [phone] | | | +--------+ + + + [...]
--- OUTSIDE RECORDS SUMMARY | ~2019-11-17 | XMS | Encounter Summary ---
Demographics + + + | Address | [address] | | | [place] [address] | + + + | Home Phone [...] Team Providers + +------+ + | Care Geological Aide Name | Role | Phone | [...] | and counseling | | | | [facility] | [place], [place] | (08/28/08 Lab | | | | and Healing, | [address] | results) | | | | [place] [address] [facility] | [phone] | | | | | [place], [place] | | | | | | [address] | | | | | | [phone] | | | +--------+ + + + [...]
--- OUTSIDE RECORDS SUMMARY | ~2019-11-17 | XMS | Encounter Summary ---
Demographics + + + | Address | [address] | | | [place] [address] | + + + | Home Phone [...] Team Providers + +------+ + | Care Award Machine Operator Name | Role | Phone [...] Acute pain | Emmy-Tajt | [address] | | | | | of right | i, | [place], | | | | | shoulder | [place] | [place] | | | | | Procedures | , [place] [address] | [address] | | | | | MRI Shoulder | [address] | Phone: | | | | | Right wo | [place], | [phone] | | | | | Contrast | [place] | Fax: | | | | | | [address] | [phone] | | | | | | Phone: | | | | | | | [phone] | | | | | | | Fax: | | | | | | | [phone] | | +--------+--------+ + + + + Reason for Visit Diagnostic/Screening (Routine) +--------+--------+ + + + + | Status | Reason | Specialty | Diagnoses / | Referred By | Referred To | | | | | Procedures | Contact | Contact | +--------+--------+ + + + + | Closed | | Radiology | Diagnoses | | [facility] | | | | | Acute pain | Emmy-Tajt | [address] | | | | | of right | i, | [place], | | | | | shoulder | [place] | [place] | | | | | Procedures | , [address] | [address] | | | | | MRI Shoulder | [address] | Phone: | | | | | Right wo | [place], | [phone] | | | | | Contrast | [place] | Fax: | | | | | | [address] | [phone] | | | | | | Phone: | | | | | | | [phone] | | | | | | | Fax: | | | | | | | [phone] | | +--------+--------+ + + + + Encounter Details +--------+ + + + + | Date | Type | Department | Care Team | Description | +--------+ + + + + | 02/17/ | Hospital | [facility] | Emmy-Kamlesh, | Acute pain of right | | 2018 | Encounter | MED CTR MRI [address] | MD [place] | shoulder | | | | [address] [place], | [address] [place] | | | | | [place] [address] | [place] [address] | | | | | [phone] | [phone] | | | | | | | [...] | | | | | [place] [address] | | | | | | [phone] | | | | | | | | +--------+---------+ + + + | 12/20/ | Office | Otolaryngology | Ulysses Genao MD | | | 2019 | Visit | | [address] [place] | | | | | | [address] [place], | | | | | | [place] [address] | | | | | | [phone] | | | | | | | | +--------+---------+ + + + | 02/15/ | Office | Internal Medicine | Alanis, | | | 2019 | Visit | | MD [place] | | | | | | [address] [place] | | | | | | [place] [address] | | | | | | [phone] | | | | | | | [...] | | WO CONTRAST | e | 10:55 AM | right shoulder | procedure are in the | | | | PDT | | results section. | + +--------+ + + + documented in this encounter Results MRI Shoulder Right wo [...] pain of right shoulder | + + documented in this encounter"
--- OUTSIDE RECORDS SUMMARY | ~2019-11-17 | XMS | Encounter Summary ---
Demographics + + + | Address | [address] | | | [place] [address] | + + + | Home Phone [...] + +------+ + | Care Tool Design Draftsperson Name | Role | Phone | + [...] | | | | | Procedures | [facility] | Mailcode: | | | | | CONSULT TO | Rd | [facility] | | | | | NEUROLOGY | [place], [place] | for Health | | | | | | [address] | and Healing, | | | | | | Phone: | [address], | | | | | | [phone] | 8th Floor | | | | | | | [place], [place] | | | | | | | [address] | | | | | | | Phone: | | | | | | | [phone] | | | | | | | Fax: | | | | | | | [phone] | +--------+--------+ + + + + Encounter Details +--------+---------+ + + + | Date | Type | Department | Care Team | Description | +--------+---------+ + + + | 03/24/ | Office | Neurology at | Taniya Guerrero, | Migraine Headache | | 2007 | Visit | [facility] & | | (Primary Dx) | | | | Healing [address] | | | | | | Bethanie Mailcode: [facility] | | | | | | [facility] | | | | | | and Healing, | | | | | | Building | | | | | | Floor [place], [place] | | | | | | [address] | | | | | | [phone] | | | +--------+---------+ + + + [...] low blood pressure. She is seeing the 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 Social History Main Topics [...] touch symmetrically throughout. Cerebellar testing shows normal qvnkzj-nh-nynu and finger tapping. On gait testing, she [...] the names of 3 headache specialists in [place]- Dr. Koby García, Dr. Dakota Sweet and [...]
--- OUTSIDE RECORDS SUMMARY | ~2019-11-17 | XMS | Encounter Summary ---
Demographics + + + | Address | [address] | | | [place] [address] | + + + | Home Phone [...] Team Providers + +------+ + | Care Litigator Name | Role | Phone | + [...] + + | 12/28/ | Telephone | [facility] | Alanis, | Results, Imaging | | 2017 | | MEDICINE [address] | MD [place] | | | | | [facility] | [address] [place] [address] | | | | | [place] [address] | [place] [address] | | | | | [phone] | [phone] | | | | | | | [...] | | | | | [place] [address] | | | | | | [phone] | | | | | | | | +--------+---------+ + + + | 12/20/ | Office | Otolaryngology | Ulysses Genao MD | | | 2019 | Visit | | [address] [place] | | | | | | [address] [place], | | | | | | [place] [address] | | | | | | [phone] | | | | | | | | +--------+---------+ + + + | 02/15/ | Office | Internal Medicine | Alanis, | | | 2019 | Visit | | MD [place] | | | | | | [address] [place] [address] [address] | | | | | | [place] [address] | | | | | | [phone] | | | | | | | | +--------+---------+ + + + documented as of this encounter Visit Diagnoses Not on filedocumented in this encounter"
--- OUTSIDE RECORDS SUMMARY | ~2019-11-17 | XMS | Encounter Summary ---
Demographics + + + | Address | [address] | | | [place] [address] | + + + | Home Phone [...] Providers + +------+ + | Care Pipe Fitter Name | Role | Phone | [...] + + | 06/25/ | Refill | [facility] | Alanis, | Medication Refill | | 2018 | | MEDICINE [address] [place] [address] | MD [place] | | | | | [facility] | [address] [place] [address] | | | | | [place] [address] | [place] [address] | | | | | [phone] | [phone] | | | | | | | [...] | | [facility] [address] | | | | | | [address] [place] | | | | | | [place] [address] | | | | | | [phone] | | | | | | | | +--------+---------+ + + + | 12/20/ | Office | Otolaryngology | Ulysses Genao MD | | | 2019 | Visit | | [address] [place] | | | | | | [address] [place], | | | | | | [place] [address] | | | | | | [phone] | | | | | | | | +--------+---------+ + + + | 02/15/ | Office | Internal Medicine | Alanis, | | | 2019 | Visit | | MD [place] | | | | | | [address] [place] [address] [address] | | | | | | [place] [address] | | | | | | [phone] | | | | | | | | +--------+---------+ + + + documented as of this encounter Visit Diagnoses Not on filedocumented in this encounter"
--- OUTSIDE RECORDS SUMMARY | ~2019-11-17 | XMS | Encounter Summary ---
Demographics + + + | Address | [address] | | | [place] [address] | + + + | Home Phone [...] Providers + +------+ + | Care Supervisor Drying And Winding Name | Role | Phone | + [...] + + | 12/26/ | Refill | [facility] | Alanis, | Medication Refill | | 2017 | | MEDICINE [address] [place] [address] | MD [place] | | | | | [facility] | [address] [place] [address] | | | | | [place] [address] | [place] [address] | | | | | [phone] | [phone] | | | | | | | [...] | | | | | [place] [address] | | | | | | [phone] | | | | | | | | +--------+---------+ + + + | 12/20/ | Office | Otolaryngology | Ulysses Genao MD | | | 2019 | Visit | | [address] [place] | | | | | | [address] [place], | | | | | | [place] [address] | | | | | | [phone] | | | | | | | | +--------+---------+ + + + | 02/15/ | Office | Internal Medicine | Alanis, | | | 2019 | Visit | | MD [place] | | | | | | [address] [place] [address] [address] | | | | | | [place] [address] | | | | | | [phone] | | | | | | | | +--------+---------+ + + + documented as of this encounter Visit Diagnoses Not on filedocumented in this encounter"
--- OUTSIDE RECORDS SUMMARY | ~2019-11-17 | XMS | Encounter Summary ---
Demographics + + + | Address | [address] | | | [place] [address] | + + + | Home Phone [...] Team Providers + +------+ + | Care Boiler Operator Helper Name | Role | Phone [...] | | | | | BONE | [place], [place] | Rd Mailcode: | | | | | DENSITOMETRY | [address] | R[address]ER[address] Eduardo | | | | | | Phone: | Naeem [place] | | | | | | [phone] | [place], [place] | | | | | | Fax: | [address] | | | | | | [phone] | Phone: | | | | | | | [phone] | | | | | | | Fax: | | | | | | | [phone] | +--------+--------+ + + + + Encounter Details +--------+ + + + + | Date | Type | Department | Care Team | Description | +--------+ + + + + | 07/24/ | Hospital | Endocrinology, | Sjh, Bmd Dexa | | | 2008 | Encounter | Diabetes and | [address] | | | | | Clinical Nutrition | [facility], | | | | | [address] | [place] [address] | | | | | [facility] Mailcode: | | | | | | [address] | | | | | | [place], [place] | | | | | | [address] | | | | | | [phone] | | | +--------+ + + + [...] from the Results section by P Byron [[id number]] on | | | 04/17/2009 at 5:16 PM (File: [id number]) | | + + + BONE DENSITOMETRY [...]
--- OUTSIDE RECORDS SUMMARY | ~2019-11-17 | XMS | Encounter Summary ---
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 Provider: DELFINA MOLINA ANP Nathalia Garrett - 007 4:49 PM PDT Physical Therapy Medicare Progress Note Date: 09/09/2006 Belinda J Shefali [id number]. 1960 Start of Care: 06/23/2006 Referring Provider: [...] with walking and sitting; driving back to [place] 2 weeks ago, stopped at rest place and got out of care, falling onto B knees, getting better. Objective: Apparently patient's trip home 2 weeks ago was most likely related to her positi oning, ie B knees were hyperflexed for a prolonged time. She has not fallen since then, use s her lofstrand crutches consistently. Functionally, patient is walking 25 minutes at [place]. com. cn at least daily and tolerating it we [...] [facility] | Procedures | Routin | Neck [...]
--- OUTSIDE RECORDS SUMMARY | ~2019-11-17 | XMS | Encounter Summary ---
Demographics + + + | Address | [address] | | | [place] [address] | + + + | Home Phone [...] Providers + +------+ + | Care Oil Distributor Name | Role | Phone | [...] + + | 08/31/ | Refill | [facility] | Alanis, | Medication Refill | | 2017 | | MEDICINE [address] [place] [address] | MD [place] | | | | | [facility] | [address] [place] [address] | | | | | [place] [address] | [place] [address] | | | | | [phone] | [phone] | | | | | | | [...] | Visit | | [facility] [address] | | | | | [address] [place] | | | | | | [place] [address] | | | | | | [phone] | | | | | | | | +--------+---------+ + + + | 12/20/ | Office | Otolaryngology | Ulysses Genao MD | | | 2019 | Visit | | [address] [place] | | | | | | [address] [place], | | | | | | [place] [address] | | | | | | [phone] | | | | | | | | +--------+---------+ + + + | 02/15/ | Office | Internal Medicine | EmmyCarmen, | | | 2019 | Visit | | MD [place] | | | | | | Karla KAY | | | | | | [place] [address] | | | | | | [phone] | | | | | | | | +--------+---------+ + + + documented as of this encounter Visit Diagnoses + + | Diagnosis | + + | Chronic bilateral low back pain without sciatica | + + documented in this encounter"
--- OUTSIDE RECORDS SUMMARY | ~2019-11-17 | XMS | Encounter Summary ---
Demographics + + + | Address | [address] | | | [place] [address] | + + + | Home Phone [...] Providers + +------+ + | Care Manager Pipeline Name | Role | Phone | + [...] | | [facility] [address] | FISHERY BIOLOGIST [address] | | | | | Sara [place] | , [address] | | | | | Mailcode: Center | [place], [place] | | | | | [facility] | [address] | | | | | Healing, [address] | [phone] | | | | | [place], [place] | | | | | | [address] | | | | | | [phone] | | | +--------+ + + + [...]
--- OUTSIDE RECORDS SUMMARY | ~2019-11-17 | XMS | Encounter Summary ---
Demographics + + + | Address | [address] | | | [place] [address] | + + + | Home Phone [...] Providers + +------+ + | Care Sheet Turner Name | Role | Phone | [...] + | 07/19/ | Refill | [facility] | Alanis, | Medication Refill | | 2019 | | MEDICINE [address] | MD [place] | | | | | [facility] | [address] [place] [address] | | | | | [place] [address] | [place] [address] | | | | | [phone] | [phone] | | | | | | | [...] | | | | | [place] [address] | | | | | | [phone] | | | | | | | | +--------+---------+ + + + | 12/20/ | Office | Otolaryngology | Ulysses Genao MD | | | 2019 | Visit | | [address] | | | | | | [address] [place], | | | | | | [place] [address] | | | | | | [phone] | | | | | | | | +--------+---------+ + + + | 02/15/ | Office | Internal Medicine | Alanis, | | | 2019 | Visit | | MD [place] | | | | | | [address] [place] [address] [address] | | | | | | [place] [address] | | | | | | [phone] | | | | | | | | +--------+---------+ + + + documented as of this encounter Visit Diagnoses Not on filedocumented in this encounter"
--- OUTSIDE RECORDS SUMMARY | ~2019-11-17 | XMS | Encounter Summary ---
Demographics + + + | Address | [address] | | | [place] [address] | + + + | Home Phone [...] Team Providers + +------+ + | Care Tour Bus Driver Name | Role | Phone | [...] as of this encounter Progress Notes Interface, Sole Ruffer In - 02/17/2006 3:04 AM [facility] [place] [address] [place], [place] [address] or October 02, 2001 [facility] [address] [place] [address] RE: BELINDA GALARZA MR #: [id number] Dear Dr. 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 Sincerely, Issac Meeks M.D. urogynecology physician, Division of Endocrinology, Diabetes, and Clinical Loss Prevention Officer, Metabolic Disorders Clinic Ph#: [phone] [facility] / [id number] / [id number] / [id number] / C: 10/13/2001 praful [id number] signed by Interface, Sole Ruffer In at 02/17/2006 3:04 AM [facility] umented in this encounter Plan of Treatment Not on filedocumented as of this encounter Visit Diagnoses Not on filedocumented in this encounter"
--- OUTSIDE RECORDS SUMMARY | ~2019-11-17 | XMS | Encounter Summary ---
Demographics + + + | Address | [address] | | | [place] [address] | + + + | Home Phone [...] Team Providers + +------+ + | Care Crew Boat Operator Name | Role | Phone | [...] | | | | [place], | [address] | | | | | | [place] | Phone: | | | | | | [address] | [phone] | | | | | | Phone: | Fax: | | | | | | [phone] | [phone] | | | | | | Fax: | | | | | | | [phone] | | +--------+ + + + + + Reason for Visit +--------+ + | Reason | Comments | +--------+ + | Other | bladder/ bowel issues | +--------+ + Encounter Details +--------+---------+ + + + | Date | Type | Department | Care Team | Description | +--------+---------+ + + + | 10/15/ | Office | [facility] | Alanis, | Mixed stress and | | 2017 | Visit | MEDICINE [address] [place] [address] | MD [place] | urge urinary | | | | [facility] | [address] [place] [address] | incontinence | | | | [place] [address] | [place] [address] | (Primary Dx); OLIVER | | | | [phone] | [phone] | (obstructive sleep | | | | [...] Patient presents with Other bladder/ bowel issues [facility] Belinda Meehan is a 57 y.o. [...] 1,000 mcg 1,000 mcg Intramuscular Q30 Days [facility] steve-Russell Thapa MD 1,000 mcg at 10/15/17 1149 ALLERGIES Allergies Allergen Reactions Codeine Sulfate Nausea Only Levofloxacin Hives, Itching and Rash Amitriptyline Hcl Other (See Comments) Confused and questionable for seizures Uxvrrrgcck-Mvqm-Ixewzbie Cephalexin Hives Duloxetine Migraines and nausea Ketorolac Hives Morphine Swelling Ropinirole Hcl Hives Tramadol Hcl Nausea Only Ojrnuqygbm-Xjrf-Sixzhdst Hives and Rash Ciprofloxacin Hives and Rash [...] warrant a GI consult. - * [facility] Gastroenterology - AMB Referral; Future 5. S/P gastric bypass - * [facility] - AMB Referral; Future 6. Nausea - ondansetron (ZOFRAN ODT) 4 mg disintegrating tablet; Take 1 tablet by mouth every 6 hours . Dispense: 120 tablet; Refill: 3 FOLLOW-UP Return in about 3 months (around 01/15/2018). Note: Parts of this documentwere created using ResoServ speech recognition software. As a r esult, [...] | | | | | [place] [address] | | | | | | [phone] | | | | | | | | +--------+---------+ + + + | 12/20/ | Office | Otolaryngology | Ulysses Genao MD | | | 2019 | Visit | | [address] | | | | | | [address] [place], | | | | | | [place] [address] | | | | | | [phone] | | | | | | | | +--------+---------+ + + + | 02/15/ | Office | Internal Medicine | lAanis, | | | 2019 | Visit | | MD [place] | | | | | | [address] [place] | | | | | | [place] [address] | | | | | | [phone] | | | | | | | [...] | | | | First dose on [facility] 10/15/17 at 1215 | | [...]
--- OUTSIDE RECORDS SUMMARY | ~2019-11-17 | XMS | Encounter Summary ---
Demographics + + + | Address | [address] | | | [place] [address] | + + + | Home Phone [...] Providers + +------+ + | Care Fish Hatchery Laborer Name | Role | Phone | [...] | | | Mailcode: PV240 | [place] [address] | | | | | [facility] | [phone] | | | | | [place], [place] | | | | | | [address] | | | | | | [phone] | | | +--------+ + + + [...]
--- OUTSIDE RECORDS SUMMARY | ~2019-11-17 | XMS | Encounter Summary ---
Demographics + + + | Address | [address] | | | [place] [address] | + + + | Home Phone [...] Team Providers + +------+ + | Care Ram Car Operator Name | Role | Phone | [...] [address] | | | | | | [place], [place] | | | | | | [address] | | | | | | [phone] | | | +--------+ + + + [...]
--- OUTSIDE RECORDS SUMMARY | ~2019-11-17 | XMS | Encounter Summary ---
Demographics + + + | Address | [address] | | | [place] [address] | + + + | Home Phone [...] Providers + +------+ + | Care Insulation Professional Name | Role | Phone | [...] Densitometry | | MD Beto | Density [facility] | | | | | Osteoporosis | [address] | [address] | | | | | Procedures | Ave | Naeem Mcrae | | | | | CONSULT TO | [place], [place] | Rd Mailcode: | | | | | BONE | [address] | [address] | | | | | DENSITOMETRY | Phone: | Naeem De La Rosa | | | | | | [phone] | [place], [place] | | | | | | Fax: | [address] | | | | | | [phone] | Phone: | | | | | | | [phone] | | | | | | | Fax: | | | | | | | [phone] | +--------+--------+ + + + + Reason [...] Sara Kovacs | | | | | [facility] | [place], [place] | | | | | [address] | [address] | | | | | [address] | [phone] | | | | | [facility] | | | | | | Physician's | | | | | | Pavilion [place], | | | | | | [place] [address] | | | | | | [phone] | | | +--------+ + + + [...]
--- OUTSIDE RECORDS SUMMARY | ~2019-11-17 | XMS | Encounter Summary ---
Demographics + + + | Address | [address] | | | [place] [address] | + + + | Home Phone [...] Providers + +------+ + | Care Laborer [employer] Name | Role | Phone | + [...] + + | 07/19/ | Telephone | [facility] | Alanis, | Lab Results | | 2019 | | MEDICINE [address] [place] [address] | MD Petrona | | | | | [facility] | [address] [place] [address] | | | | | [place] [address] | [place] [address] | | | | | [phone] | [phone] | | | | | | | [...] | | | | | [place] [address] | | | | | | [phone] | | | | | | | | +--------+---------+ + + + | 12/20/ | Office | Otolaryngology | Ulysses Genao MD | | | 2020 | Visit | | [address] | | | | | | [address] [place], | | | | | | [place] [address] | | | | | | [phone] | | | | | | | | +--------+---------+ + + + | 02/15/ | Office | Internal Medicine | Alanis, | | | 2019 | Visit | | MD Petrona | | | | | | [address] | | | | | | [place] [address] | | | | | | [phone] | | | | | | | | +--------+---------+ + + + documented as of this encounter Visit Diagnoses Not on filedocumented in this encounter"
--- OUTSIDE RECORDS SUMMARY | ~2019-11-17 | XMS | Encounter Summary ---
Demographics + + + | Address | [address] | | | [place] [address] [...] Providers + +------+ + | Care News Writer Name | Role | Phone | [...] + + | 02/22/ | Refill | [facility] | Alanis, | Medication Refill | | 2017 | | MEDICINE [address] [place] [address] | MD Petrona | | | | | [facility] | [address] [place] [address] | | | | | [place] [address] | [place] [address] | | | | | [phone] | [phone] | | | | | | | [...] | | | | | [place] [address] | | | | | | [phone] | | | | | | | | +--------+---------+ + + + | 12/20/ | Office | Otolaryngology | Ulysses Genao MD | | | 2019 | Visit | | [address] | | | | | | [address] [place], | | | | | | [place] [address] | | | | | | [phone] | | | | | | | | +--------+---------+ + + + | 02/15/ | Office | Internal Medicine | lAanis, | | | 2019 | Visit | | MD Petrona | | | | | | [address] [place] [address] [address] | | | | | | [place] [address] | | | | | | [phone] | | | | | | | | +--------+---------+ + + + documented as of this encounter Visit Diagnoses Not on filedocumented in this encounter"
--- OUTSIDE RECORDS SUMMARY | ~2019-11-17 | XMS | Encounter Summary ---
Demographics + + + | Address | [address] | | | [place] [address] | + + + | Home Phone [...] Providers + +------+ + | Care Production Technologist Name | Role | Phone | [...] + + | 06/07/ | Refill | [facility] | Alanis, | Medication Refill | | 2017 | | MEDICINE [address] [place] [address] | MD Petrona | | | | | [facility] | [address] [place] [address] | | | | | [place] [address] | [place] [address] | | | | | [phone] | [phone] | | | | | | | [...] | 2019 | Visit | | [facility] [address] | | | | | [address] [place] | | | | | | [place] [address] | | | | | | [phone] | | | | | | | | +--------+---------+ + + + | 12/20/ | Office | Otolaryngology | Ulysses Genao MD | | | 2019 | Visit | | [address] | | | | | | [address] [place], | | | | | | [place] [address] | | | | | | [phone] | | | | | | | | +--------+---------+ + + + | 02/15/ | Office | Internal Medicine | Alanis, | | | 2019 | Visit | | MD Petrona | | | | | | [address] [place] [address] [address] | | | | | | [place] [address] | | | | | | [phone] | | | | | | | | +--------+---------+ + + + documented as of this encounter Visit Diagnoses Not on filedocumented in this encounter"
--- OUTSIDE RECORDS SUMMARY | ~2019-11-17 | XMS | Encounter Summary ---
Demographics + + + | Address | [address] | | | [place] [address] | + + + | Home Phone [...] Team Providers + +------+ + | Care Turntable Engineer Name | Role | Phone | [...] + + | 03/19/ | Telephone | [facility] | Alanis, | Other (bowel issues) | | 2017 | | MEDICINE [address] [place] [address] | MD Petrona | | | | | [facility] | [address] [place] [address] | | | | | [place] [address] | [place] [address] | | | | | [phone] | [phone] | | | | | | | [...] | | | | | [place] [address] | | | | | | [phone] | | | | | | | | +--------+---------+ + + + | 12/20/ | Office | Otolaryngology | Ulysses Genao MD | | | 2019 | Visit | | [address] | | | | | | [address] [place], | | | | | | [place] [address] | | | | | | [phone] | | | | | | | | +--------+---------+ + + + | 02/15/ | Office | Internal Medicine | Alanis, | | | 2019 | Visit | | MD Petrona | | | | | | [address] [place] [address] [address] | | | | | | [place] [address] | | | | | | [phone] | | | | | | | | +--------+---------+ + + + documented as of this encounter Visit Diagnoses Not on filedocumented in this encounter"
--- OUTSIDE RECORDS SUMMARY | ~2019-11-17 | XMS | Encounter Summary ---
Demographics + + + | Address | [address] | | | [place] [address] | + + + | Home Phone [...] Providers + +------+ + | Care Tar Distributor Operator Name | Role | Phone [...] + + | 05/16/ | Office | [facility] | Alanis, | Chronic diarrhea | | 2019 | Visit | MEDICINE [address] [place] [address] | MD Petrona | (Primary Dx); | | | | [facility] | [address] [place] [address] | History of [place] | | | | [place] [address] | [place] [address] | gastric bypass; | | | | [phone] | [phone] | Fibromyalgia; Fatty | | | | [...] Procedure: COLONOSCOPY; Surgeon: Luther Brito MD; Location: [facility] MEDICAL PROCEDURE UNIT DILATION AND CURETTAGE OF UTERUS ELBOW SURGERY FINGER TRIGGER RELEASE 2003 FINGER TRIGGER RELEASE 2010 GASTRIC BYPASS SURGERY 2004 HYSTERECTOMY 05/14/1980 JOINT REPLACEMENT Bilateral 2007 2008 KNEE ARTHROSCOPY 2005 LAPAROSCOPY 01/27/2015 LAPAROTOMY 2008 ROTATOR CUFF REPAIR 2005 SPINE SURGERY TONSILLECTOMY 1964 UPPER GASTROINTESTINAL ENDOSCOPY N/A 12/18/2017 Procedure: EGD; Surgeon: Luther Brito MD; Location: [facility] MEDICAL PROCEDURE UNIT CURRENT MEDICATIONS Current [...] Allergen Reactions Ensure Diarrhea Food Diarrhea Lactose Dtmxuegtzv-Lxd-Gvre-Codeine Other (See Comments) Balance problems Codeine Sulfate Nausea Only Food Allergy Formula Diarrhea Ensure Levofloxacin Hives, Itching and Rash Butalbital Ropinirole Amitriptyline Hcl Other (See Comments) Confused and questionable for seizures Nyuxprsvlc-Inkb-Yuzpwckl Rash duplicate Nrjmbtvyoc-Pnpy-Idxqefqs Hives and Rash Cephalexin Hives Ciprofloxacin Hives [...] 1. Parts of this documentwere created using [employer] speech recognition software. As a resu lt, [...] | | | | | [place] [address] | | | | | | [phone] | | | | | | | | +--------+---------+ + + + | 12/20/ | Office | Otolaryngology | Ulysses Genao MD | | 2019 | Visit | | [address] | | | | | | [address] [place] | | | | | | [place] [address] | | | | | | [phone] | | | | | | | | +--------+---------+ + + + | 02/15/ | Office | Internal Medicine | Alanis, | | | 2019 | Visit | | MD Petrona | | | | | | [address] [facility] | | | | | | [place] [address] | | | | | | [phone] | | | | | | | [...]
--- OUTSIDE RECORDS SUMMARY | ~2019-11-17 | XMS | Encounter Summary ---
Demographics + + + | Address | [address] | | | [place] [address] | + + + | Home Phone [...] Providers + +------+ + | Care Block Cutter Name | Role | Phone | [...] as of this encounter Progress Notes Byron, [employer] In - 01/12/2005 6:46 AM PDTClinic Date: [...] months. Chris Padgett M.D. CD / HS [id number] / [id number] / [id number] / Tdocumented in this encounter Plan of Treatment Not on filedocumented as of this encounter Visit Diagnoses Not on filedocumented in this encounter"
--- OUTSIDE RECORDS SUMMARY | ~2019-11-17 | XMS | Encounter Summary ---
Demographics + + + | Address | [address] | | | [place] [address] | + + + | Home Phone [...] Providers + +------+ + | Care Patent Clerk Name | Role | Phone | [...] + + | 09/23/ | Office | 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 Continue with [place] 10/325 1 tablet three times per day [...] Belinda Meehan is a 46 [address] [facility] Comprehensive Pain Center Return Visit Chief [...] 72 hours on schedule 2. Continue with [place] 10/325 1 tablet three times per day as needed for increased pain wit h activity. 3. Continue with Trileptal 150mg, 1 tablet twice a day 4. Continue with PT and psychology as scheduled 5. Follow up with Delfina Molina in 4 weeks or sooner if needed. 6. Continue with orthopedic and neurology evaluations as scheduled [facility] Center Mail code CH 4P [place] [facility] and [address] [address] Ty Omalley - 9:28 AM [...] Yes , Fentanyl patch documented in this [facility] Plan of Treatment Not on filedocumented as [...]
--- OUTSIDE RECORDS SUMMARY | ~2019-11-17 | XMS | Encounter Summary ---
Demographics + + + | Address | [address] | | | [place] [address] | + + + | Home Phone [...] Providers + +------+ + | Care Lead Furnace Operator Name | Role | Phone [...] | | | | SURGERY - | [place], [place] | [facility] [address] | | | | | UROLOGY | [address] | for Health | | | | | | Phone: | dat [place], | | | | | | [phone] | Building [address], | | | | | | Fax: | 10th Floor | | | | | | [phone] | [place], [place] | | | | | | | [address] | | | | | | | Phone: | | | | | | | [phone] | | | | | | | Fax: | | | | | | | [phone] | +--------+--------+ + + + + Reason [...] | Status Post | | | | [facility] | [facility] [place] | Bariatric Surgery | | | | and Healing, | [address] | | | | | [facility] | [phone] | | | | | Floor [place], [place] | | | | | | [address] | | | | | | [phone] | | | +--------+---------+ + + + [...] coughing. Medications: Fentanyl 25 mcg 72 hours, [place]/JOJO 10 mg/325 mg PRN Q 6 hrs, [...]
--- OUTSIDE RECORDS SUMMARY | ~2019-11-17 | XMS | Encounter Summary ---
Demographics + + + | Address | [address] | | | [place] [address] | + + + | Home Phone [...] Providers + +------+ + | Care Tire Builder Heavy Service Name | Role | Phone | [...] as of this encounter Progress Notes Interface, Forest Fire Lookout In - 01/11/2005 5:17 PM PDT [place] [facility] [address] [place] [address] or June 26, 2003 Pedrito Gutierrez M.D. [address] [place] [address] RE: BELINDA MEEHAN MR #: [id number] Dear Dr. Gutierrez: I had the pleasure of seeing your patient, Ms. Belinda Meehan, today in the [facility] Division of Rheumatology Clinic. She was [...] Sincerely, Sesar Nash M.D. NURIA / SHARIF [id number] / [id number] / [id number] / [id number] cc: Kelley Alegre [address] [place] [address] FAX: [phone] signed by Interface, Forest Fire Lookout In at 01/11/2005 5:17 PM PDTdocumented in this encounter Plan of Treatment Not on filedocumented as of this encounter Visit Diagnoses Not on filedocumented in this encounter"
--- OUTSIDE RECORDS SUMMARY | ~2019-11-17 | XMS | Encounter Summary ---
Demographics + + + | Address | [address] | | | [place] [address] | + + + | Home Phone [...] Team Providers + +------+ + | Care Profile Saw Operator Name | Role | Phone [...] + + | 10/07/ | Telephone | [facility] | Alanis, | Hip Pain | | 2017 | | MEDICINE [address] [place] [address] | MD Petrona | | | | | [facility] | [address] [place] [address] | | | | | [place] [address] | [place] [address] | | | | | [phone] | [phone] | | | | | | | [...] | | | | | [place] [address] | | | | | | [phone] | | | | | | | | +--------+---------+ + + + | 12/20/ | Office | Otolaryngology | Ulysses Genao MD | | | 2019 | Visit | | [address] | | | | | | [address] [place], | | | | | | [place] [address] | | | | | | [phone] | | | | | | | | +--------+---------+ + + + | 02/15/ | Office | Internal Medicine | Alanis, | | | 2019 | Visit | | MD Petrona | | | | | | [address] | | | | | | [place] [address] | | | | | | [phone] | | | | | | | | +--------+---------+ + + + documented as of this encounter Visit Diagnoses Not on filedocumented in this encounter"
--- OUTSIDE RECORDS SUMMARY | ~2019-11-17 | XMS | Encounter Summary ---
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 Her IGF-1 was low [...] 3 months. Caitlin Rivera M.S., F.N.P. / [id number] / [id number] / [id number] / cc: Pedrito Gutierrez M.D. [address] [facility] [place] [address] documented i n this encounter Plan of Treatment Not on filedocumented as of this encounter Visit Diagnoses Not on filedocumented in this encounter"
--- OUTSIDE RECORDS SUMMARY | ~2019-11-17 | XMS | Encounter Summary ---
Demographics + + + | Address | [address] | | | [place] [address] | + + + | Home Phone [...] Providers + +------+ + | Care Systems Support Officer Name | Role | Phone | [...] as of this encounter Progress Notes Interface, Registered Associate In - 01/21/2006 1:09 AM [facility] [place] [address] [place], [place] [address] or March 15, 2002 Pedrito Gutierrez M.D. [facility] [address] [place] [address] RE: BELINDA MEEHAN MR #: [id number] Dear Dr. Gutierrez: I had the pleasure [...] to set her up to see a beauty sales consultant in Neurology or the Neuromuscular Clinic [...] to contact me. Sincerely, Issac Meeks M.D. public policy coordinator Division of Endocrinology, Diabetes, and Clinical Cue Worker of Metabolic Disorders Clinic [employer] / SHARIF [id number] / [id number] / [id number] / Tdocumented in this encounter Plan of Treatment Not on filedocumented as of this encounter Visit Diagnoses Not on filedocumented in this encounter"
--- OUTSIDE RECORDS SUMMARY | ~2019-11-17 | XMS | Encounter Summary ---
Demographics + + + | Address | [address] | | | [place] [address] | + + + | Home Phone [...] Team Providers + +------+ + | Care Gill Box Fixer Name | Role | Phone | [...] + + | 01/31/ | Telephone | [facility] | Alanis, | Foot Pain | | 2019 | | MEDICINE [address] [place] [address] | MD Petrona | | | | | [facility] | [address] [place] [address] | | | | | [place] [address] | [place] [address] | | | | | [phone] | [phone] | | | | | | | [...] | | | | | [place] [address] | | | | | | [phone] | | | | | | | | +--------+---------+ + + + | 12/20/ | Office | Otolaryngology | Ulysses Genao MD | | | 2020 | Visit | | [address] | | | | | | [address] [place], | | | | | | [place] [address] | | | | | | [phone] | | | | | | | | +--------+---------+ + + + | 02/15/ | Office | Internal Medicine | Alanis, | | | 2019 | Visit | | MD Petrona | | | | | | [address] | | | | | | [place] [address] | | | | | | [phone] | | | | | | | | +--------+---------+ + + + documented as of this encounter Visit Diagnoses Not on filedocumented in this encounter"
--- OUTSIDE RECORDS SUMMARY | ~2019-11-17 | XMS | Encounter Summary ---
Demographics + + + | Address | [address] | | | [place] [address] | + + + | Home Phone [...] Providers + +------+ + | Care Senior Mechanical Engineer Name | Role | Phone | [...] as of this encounter Progress Notes Interface, Cosmetics Counter Manager In - 06/23/2006 2:36 AM PST [id number] GE[facility]NI SKELTON Molly [id number] Clinic Date: 05/05/2006 Clinic: Endocrinology Subjective: Belinda [...] replacement. Beto Meeks M.D. PD / HS [id number] / [id number] / [id number] / cc: Pedrito Gutierrez M.D. [address] [place] [address] Joanna Arshad M.D. [facility] Electronically signed by Beto Meeks 06-20-2006 11:48:11 PM documented i n this encounter Plan of Treatment Not on filedocumented as of this encounter Visit Diagnoses Not on filedocumented in this encounter"
--- OUTSIDE RECORDS SUMMARY | ~2019-11-17 | XMS | Encounter Summary ---
Demographics + + + | Address | [address] | | | [place] [address] | + + + | Home Phone [...] Providers + +------+ + | Care Master Coastal Waters Name | Role | Phone | + [...] | | | [facility] | [place], [place] | | | | | [address] | [address] | | | | | [address] | [phone] | | | | | Physician's | | | | | | Pavilion, 1st floor | | | | | | [place], [place] | | | | | | [address] | | | | | | [phone] | | | +--------+--------+ + + + [...]
--- OUTSIDE RECORDS SUMMARY | ~2019-11-17 | XMS | Encounter Summary ---
Demographics + + + | Address | [address] | | | [place] [address] | + + + | Home Phone [...] Team Providers + +------+ + | Care Transit Man Name | Role | Phone | [...] + + | 07/17/ | Telephone | [facility] INTER[facility] | Alanis, | Medical Problem | | 2017 | | MEDICINE [address] [place] [address] | MD Petrona | | | | | [facility] | [address] [place] [address] | | | | | [place] [address] | [place] [address] | | | | | [phone] | [phone] | | | | | | | [...] | | | | | [place] [address] | | | | | | [phone] | | | | | | | | +--------+---------+ + + + | 12/20/ | Office | Otolaryngology | Ulysses Genao MD | | | 2019 | Visit | | [address] | | | | | | [address] [place], | | | | | | [place] [address] | | | | | | [phone] | | | | | | | | +--------+---------+ + + + | 02/15/ | Office | Internal Medicine | Alanis, | | | 2019 | Visit | | MD Petrona | | | | | | [address] | | | | | | [place] [address] | | | | | | [phone] | | | | | | | | +--------+---------+ + + + documented as of this encounter Visit Diagnoses Not on filedocumented in this encounter"
--- OUTSIDE RECORDS SUMMARY | ~2019-11-17 | XMS | Encounter Summary ---
Demographics + + + | Address | [address] | | | [place] [address] | + + + | Home Phone [...] Team Providers + +------+ + | Care Enrobing Machine Operator Name | Role | Phone [...] + + | 02/11/ | Telephone | [facility] INTER[facility] | Alanis, | Arm Pain (Right Arm) | | 2017 | | MEDICINE [address] [place] [address] | MD Petrona | | | | | [facility] | [address] [place] [address] | | | | | [place] [address] | [place] [address] | | | | | [phone] | [phone] | | | | | | | [...] | | | | | [place] [address] | | | | | | [phone] | | | | | | | | +--------+---------+ + + + | 12/20/ | Office | Otolaryngology | Ulysses Genao MD | | | 2019 | Visit | | [address] | | | | | | [address] [place], | | | | | | [place] [address] | | | | | | [phone] | | | | | | | | +--------+---------+ + + + | 02/15/ | Office | Internal Medicine | Alanis, | | | 2019 | Visit | | MD Petrona | | | | | | [address] | | | | | | [place] [address] | | | | | | [phone] | | | | | | | | +--------+---------+ + + + documented as of this encounter Visit Diagnoses Not on filedocumented in this encounter"
--- OUTSIDE RECORDS SUMMARY | ~2019-11-17 | XMS | Encounter Summary ---
Demographics + + + | Address | [address] | | | [place] [address] | + + + | Home Phone [...] Providers + +------+ + | Care Online Trader Name | Role | Phone | [...] | Discussion | | 2007 | | [facility] & | MD | | | | | Healing Radha[address] | | | | | | [place] Mailcode: CH8C | | | | | | [facility] | | | | | | and Healing, | | | | | | Building | | | | | | Floor [place], [place] | | | | | | [address] | | | | | | [phone] | | | +--------+ + + + [...]
--- OUTSIDE RECORDS SUMMARY | ~2019-11-17 | XMS | Encounter Summary ---
Demographics + + + | Address | [address] | | | [place] [address] | + + + | Home Phone [...] Team Providers + +------+ + | Care Clamp Truck Driver Name | Role | Phone [...] as of this encounter Progress Notes Interface, Milieu Manager In - 08/22/2005 2:06 AM PST [id number] [facility] Date: 07/31/2005 Clinic: Surgery [...] laparotomy. Plan: Emergency supply approved by [facility] in [place]. Quantity 35 was requested and will be filled. I will send a prescription for 40 additional oxycodone 5 mg. The patient will be seen in clinic in one week. Melisa Thorne / SHARIF [id number] / [id number] / [id number] / [id number] Electronically signed by Kenisha Melton 08-21-2005 07:00:10 PM documented corrie cortse this encounter Plan of Treatment Not on filedocumented as of this encounter Visit Diagnoses Not on filedocumented in this encounter"
--- OUTSIDE RECORDS SUMMARY | ~2019-11-17 | XMS | Encounter Summary ---
Demographics + + + | Address | [address] | | | [place] [address] | + + + | Home Phone [...] Providers + +------+ + | Care Data Control Clerk Name | Role | Phone [...] + + | 10/19/ | Telephone | [facility] | Alanis, | Lab Order | | 2017 | | MEDICINE [address] [place] [address] | MD Petrona | | | | | [facility] | [address] [place] [address] | | | | | [place] [address] | [place] [address] | | | | | [phone] | [phone] | | | | | | | [...] | | | | | [place] [address] | | | | | | [phone] | | | | | | | | +--------+---------+ + + + | 12/20/ | Office | Otolaryngology | Ulysses Genao MD | | | 2020 | Visit | | [address] [place] | | | | | | [address] [place], | | | | | | [place] [address] | | | | | | [phone] | | | | | | | | +--------+---------+ + + + | 02/15/ | Office | Internal Medicine | Alanis, | | | 2019 | Visit | | MD Petrona | | | | | | [address] | | | | | | [place] [address] | | | | | | [phone] | | | | | | | | +--------+---------+ + + + documented as of this encounter Visit Diagnoses Not on filedocumented in this encounter"
--- OUTSIDE RECORDS SUMMARY | ~2019-11-17 | XMS | Encounter Summary ---
Demographics + + + | Address | [address] | | | [place] [address] | + + + | Home Phone [...] Team Providers + +------+ + | Care Enroute Controller Name | Role | Phone | + +------+ + | Sulaiman Carrera MD | PCP | | + +------+ + Encounter Details +--------+ + + + + | Date | Type | Department | Care Team | Description | +--------+ + + + + | 07/24/ | Ancillary | Registration [address] | [place], | | | 2006 | Registratio | [facility] | MD Lukasz [address] | | | [address] | [address] Mailcode: RPB07 | [place], | | | | | [place], [place] | [place] [address] | | | | | [address] | [phone] | | | | | [phone] | | | +--------+ + + + [...] | | | | | performed at [facility] | | | | | | [facility] | | | | | | Laboratory | | | | + + + + + + + + | Specimen | + + | | + + + + + + + | Performing | Address | City/State/Zipcode | Phone Number | | Organization | | | | + + + + + | [facility] | [address] | [place] [address] | | | LABORATORY | | | [...] [facility] DEPARTMENT OF | [address] | [place] [address] | | | PATHOLOGY | [address] | | | + + + + + | [facility] DEPARTMENT OF | [address] | [place] [address] | | | PATHOLOGY | [address] [...] [facility] DEPARTMENT OF | [address] | [place] [address] | | | PATHOLOGY | [address] | | | + + + + + | [facility] DEPARTMENT OF | [address] [facility] | [place] [address] | | | PATHOLOGY | [address] [...] | [address] | [place] [address] | | | PATHOLOGY | [address] | | | + + + + + | [facility] DEPARTMENT OF | [address] | [place] [address] | | | PATHOLOGY | [address] | | | + + + + + PROTHROMBIN TIME (07/24/2005 5:03 PM PST) + + + + + + | Component | Value | Ref Range | Performed | Pathologist | | | | | At | Signature | + + + + + + | INR | 0.97Comment: | 0.90 - 1.20 INR | [facility] | | | | PT INR [...] | + + + + + | [facility] | [address] | [place] [address] | | | PATHOLOGY | [address] | | | + + + + + | [facility] DEPARTMENT OF | [address] | [place] [address] | | | PATHOLOGY | [address] [...] | + + + + + | [facility] | [address] | [place] [address] | | | PATHOLOGY | [address] | | | + + + + + | [facility] | [address] | [place] [address] | | | PATHOLOGY | [address] | | | + + + + + documented in this encounter Visit Diagnoses Not on filedocumented in this encounter"
--- OUTSIDE RECORDS SUMMARY | ~2019-11-17 | XMS | Encounter Summary ---
Demographics + + + | Address | [address] | | | [place] [address] | + + + | Home Phone [...] Team Providers + +------+ + | Care Graphite Grinder Name | Role | Phone | [...] + + | 05/26/ | Telephone | [facility] | Alanis, | Diarrhea | | 2018 | | MEDICINE [address] [place] [address] | MD Petrona | | | | | [facility] | [address] [place] [address] | | | | | [place] [address] | [place] [address] | | | | | [phone] | [phone] | | | | | | | [...] | | | | | [place] [address] | | | | | | [phone] | | | | | | | | +--------+---------+ + + + | 12/20/ | Office | Otolaryngology | Ulysses Genao MD | | | 2019 | Visit | | [address] | | | | | | [address] [place], | | | | | | [place] [address] | | | | | | [phone] | | | | | | | | +--------+---------+ + + + | 02/15/ | Office | Internal Medicine | Alanis, | | | 2019 | Visit | | MD Petrona | | | | | | [address] [place] | | | | | | [place] [address] | | | | | | [phone] | | | | | | | | +--------+---------+ + + + documented as of this encounter Visit Diagnoses Not on filedocumented in this encounter"
--- OUTSIDE RECORDS SUMMARY | ~2019-11-17 | XMS | Encounter Summary ---
Demographics + + + | Address | [address] | | | [place] [address] | + + + | Home Phone [...] Providers + +------+ + | Care Visual Education Director Name | Role | Phone [...] + + | 02/05/ | Office | PM[facility]agan NDIAYE | Joe, | Chronic low back | | 2015 | Visit | PHYSIATRY [address] | [address]ARY [address] | pain (Primary Dx); | | | | [address] | [address] | SCOLIOSIS , | | | | [place] [address] | [place] [address] | IDIOPATHIC; Lumbar | | | | [address] | [phone] | radiculopathy | | | | [phone] | | primarily right; S/P | | [...] blood sugars if you a re diabetic. care home risk can lead to osteoporosis which is [...] were performed by a Dr. García in [place]. The patient is unable to take NSAID's [...] visit. ALLERGIES: Allergies Allergen Reactions Amitriptyline Hcl Pksfnvuxhi-Qnop-Aiidbovm Cephalexin Ciprofloxacin Clarithromycin Clindamycin Hcl Codeine Sulfate [...] has no apparent deficits with short or shelter memory. She has appropriate fund of knowledge [...] PT (multiple sessions over the years) and urgent care technician. Unfortunately she nelly nues to have significant [...] she is starting physical therapy again in [place]. 5. I will see the patient 2 [...] | | | | | | [address] [facility] | | | | | | [place] [address] | | | | | | [phone] | | | | | | | | +--------+---------+ + + + | 12/20/ | Office | Otolaryngology | Ulysses Genao MD | | | 2019 | Visit | | [address] | | | | | | [address] [place], | | | | | | [place] [address] | | | | | | [phone] | | | | | | | | +--------+---------+ + + + | 02/15/ | Office | Internal Medicine | Alanis, | | | 2019 | Visit | | MD Petrona | | | | | | [address] [place] | | | | | | [place] [address] | | | | | | [phone] | | | | | | | | +--------+---------+ + + + documented as of this encounter Results [place] Sacroiliac Injection Right (02/27/2015 2:12 PM PDT) + + | Specimen | + + | | + + + + + | Narrative | Performed At | + + + | 02/27/2015 Bilateral Sacroiliac Joint Injection Clinical History: | [facility] | | Sacroiliitis ICD-9 720.0 Belinda Meehan presents to the | [facility] | | fluoroscopy suite for fluoroscopically guided bilateral sacroiliac [facility] | | joint steroid injections as part [...] + | [facility] | [address] | [place], [place] | [phone] | | [facility] | | [address] | | | - IMAGING | | [...] 720.0 Belinda Meehan presents to the | [facility] | | fluoroscopy suite for fluoroscopically guided bilateral sacroiliac [facility] | | joint steroid injections as part [...] | + + + + + | [facility] | [address] | [place] | [phone] | | [facility] | | [address] | | | - IMAGING | | [...]
--- OUTSIDE RECORDS SUMMARY | ~2019-11-17 | XMS | Encounter Summary ---
Demographics + + + | Address | [address] | | | [place] [address] | + + + | Home Phone [...] Providers + +------+ + | Care Deputy Commissioner Name | Role | Phone | + +------+ + | Petrona Thapa | PCP | | | MD | | | + +------+ + Reason for Visit +--------+ + | Reason | Comments | +--------+ + | Other | Pain clinic | +--------+ + Encounter Details +--------+ + + + + | Date | Type | Department | Care Team | Description | +--------+ + + + + | 04/15/ | Telephone | [facility] | Alanis, | Other (Pain clinic) | | 2019 | | MEDICINE [address] [place] [address] | MD Petrona | | | | | [facility] | [address] [place] [address] | | | | | [place] [address] | [place] [address] | | | | | [phone] | [phone] | | | | | | | [...] [facility] [address] | | | | | | [address] [place] | | | | | | [place] [address] | | | | | | [phone] | | | | | | | | +--------+---------+ + + + | 12/20/ | Office | Otolaryngology | Ulysses Genao MD | | | 2019 | Visit | | [address] [place] | | | | | | [address] [place], | | | | | | [place] [address] | | | | | | [phone] | | | | | | | | +--------+---------+ + + + | 02/15/ | Office | Internal Medicine | Alanis, | | | 2019 | Visit | | MD Petrona | | | | | | [address] [place] | | | | | | [place] [address] | | | | | | [phone] | | | | | | | | +--------+---------+ + + + documented as of this encounter Visit Diagnoses Not on filedocumented in this encounter"
--- OUTSIDE RECORDS SUMMARY | ~2019-11-17 | XMS | Encounter Summary ---
Demographics + + + | Address | [address] | | | [place] [address] | + + + | Home Phone [...] Team Providers + +------+ + | Care Registered Nurse Cardiac Name | Role | Phone | + [...] 2007 | Visit | Rheumatology [address] | syndrome [address] | | | | [address] | | (Primary Dx) | | | | Mailcode: [id number] | | | | | | Outpatient Clinic | | | | | | Building [place], | | | | | | [place] [address] | | | | | | [phone] | | | +--------+---------+ + + + [...] have much room. I wonder about small skating rink manager ior fossa. There is a disc bulge [...] 07/05/2007 56.0 15.0-75.0 Final Test performed by [facility]. VITAMIN D 25 HYDROXY (ng/mL) 07/03/2007 47 20-57 Final Comment: TEST INFORMATION: VITAMIN D, 25-HYDROXY This assay accurately quantifies the sum of vitamin D3, 25-hydroxy and vitamin D2, 25-hydroxy. Deficiency: Less than 20 ng/mL Insufficiency: 20-29 ng/mL Optimum Level: 30-80 ng/mL Possible Toxicity: Greater than 80 ng/mL Performed by [employer], [address] [place] [id number] [email or web address], Sincere Jordan MD - Lab. Director documented in this encount er Plan of Treatment Not on filedocumented as of this encounter Visit Diagnoses + + | Diagnosis | + + | Fibromyalgia syndrome 729.1 - Primary Mylagia and myositis, unspecified | + + documented in this encounter"
--- OUTSIDE RECORDS SUMMARY | ~2019-11-17 | XMS | Encounter Summary ---
Demographics + + + | Address | [address] | | | [place] [address] | + + + | Home Phone [...] | Comments | + + + | Pre-op Exam | | + + + Encounter Details +--------+---------+ + + + | Date | Type | Department | Care Team | Description | +--------+---------+ + + + | 08/18/ | Office | [facility] | Alanis, | Preop examination | | 2018 | Visit | MEDICINE [address] | MD Petrona | (Primary Dx); | | | | [facility] | [address] [facility] | Trigger finger of | | | | [place] [address] | [place] [address] | all digits of left | | | | [phone] | [phone] | hand | | | | | | | [...] + | Blood Pressure | 100/70 | 08/18/2017 10:05 AM | | | | | PST | | + + + + + | Pulse | 61 | 08/18/2017 10:05 AM | | | | | PST | | + + + + + | Temperature | 36.5 C (97.7 F) | 08/18/2017 10:05 AM | | | | | PST | | + + + + + | Respiratory Rate | 16 | 08/18/2017 10:05 AM | | | | | PST | | + + + + + | Oxygen Saturation | 98% | 08/18/2017 10:05 AM | | | | | PST | | + + + + + | Inhaled Oxygen | - | - | | | Concentration | | | | + + + + + | Weight | 96.4 kg (212 lb 8.4 | 08/18/2017 10:05 AM | | | | oz) | PST | | + + + + + | Height | - | - | | + + + + + | Body Mass Index | 32.31 | 07/16/2017 10:08 AM | | | | | PST | | + + + + + documented in this encounter Progress Notes Maggie Montoya LPN - 08/18/2017 9:45 AM PST Administrations This Visit cyanocobalamin (VITAMIN B-12) injection 1,000 mcg Admin Date 08/18/2017 Action Given Dose 1000 mcg Route Intramuscular Administered By Maggie Montoya LPN Vitamin B12 1000mcg given IM right deltoid. Patient tolerated injection well. Petrona Tafoya MD - 11/2017 9:45 AM PST CHIEF COMPLAINT Chief Complaint Patient presents with Pre-op Exam HPI Belinda Meehan is a 57 y.o. y/o female who presents today for preop clearance. She is scheduled to have a left hand trigger finger surgery tomorrow in her thumb been index menae r with Dr. Dr Jefe Cruz in [place], [place]. . She had surgery before and she s tates this time she is going to need a more involved surgery to take care of this issues. T he plan is to do a nerve block not general anesthesia. She's had surgeries before and has not had any significant cardiovascular or pulmonary issu es. She has limited mobility due to significant back and lower extremity joint issues but if it wasn't for this issues she states she could easily walk several blocks without having chest pain shortness of breath or other similar symptoms. As it is now, she is still able to wal k in the grocery store and pushed a cart without discomfort. She had a cardiovascular evaluation a few years ago that included an angiogram which came b ack okay. Doesn't smoke or drink. Had a basal metabolic panel yesterday at [facility] in [place] which came back okay. REVIEW OF SYSTEMS See HPI for further [...] Fibromyalgia GERD (gastroesophageal reflux disease) Glaucoma Hyperparathyroidism ([facility]) Hypothyroidism IBS (irritable bowel syndrome) Idiopathic scoliosis Leg edema Low back pain Lumbar postlaminectomy syndrome Lumbar radiculopathy primarily right 01/04/2015 Meniere syndrome Migraine with aura Migraines Muscle cramping Muscle spasm Myalgia Nonalcoholic hepatosteatosis Obesity Opioid dependence ([facility]) Orthostatic hypotension OLIVER (obstructive sleep apnea) Osteoarthritis, generalized Osteopenia Osteoporosis Peripheral neuropathy ([facility]) Rheumatoid arthritis ([facility] [...] (See Comments) Confused and questionable for seizures Adxixwhbfb-Gxkl-Zticfhji Cephalexin Hives Duloxetine Migraines and nausea Ketorolac Hives Morphine Swelling Ropinirole Hcl Hives Tramadol Hcl Nausea Only Jcmizsjzyy-Fnsl-Pvbccnjt Hives and Rash Ciprofloxacin Hives and Rash Clarithromycin Hives and Rash Clindamycin Hcl Hives and Rash Doxycycline Rash Levofloxacin Hives and Rash Penicillins Hives and Rash Sulfamethoxazole-Trimethoprim Hives and Rash PHYSICAL EXAM VITAL SIGNS: BP 100/70 | Pulse 61 | Temp 36.5 C (97.7 F) (Temporal) | Resp 16 | Wt 96.4 kg (212 lb 8.4 oz) | SpO2 98% | BMI 32.31 kg/m Constitutional: Well developed, Well nourished, No [...] Good range of motion in all major joints except in L thumb and index which appear to lock on flexion. Neurologic: Alert & oriented x 3, Normal motor function, Normal sensory function, No focal deficits noted. Psychiatric: Affect normal, Judgment normal, Mood normal. ASSESSMENT & PLAN 1. Preop exa She is medically cleared to undergo surgery on her left hand and I don't expect any signifi cant cardiovascular or pulmonary complications in the perioperative period. 2. Trigger finger of all digits of left hand See above. FOLLOW-UP No Follow-up on file. Note: Parts of this documentwere created using [employer] speech recognition software. As a r esult, [...] | | | | | [place] [address] | | | | | | [phone] | | | | | | | | +--------+---------+ + + + | 12/20/ | Office | Otolaryngology | Ulysses Genao MD | | | 2019 | Visit | | [address] | | | | | | [address] [place], | | | | | | [place] [address] | | | | | | [phone] | | | | | | | | +--------+---------+ + + + | 02/15/ | Office | Internal Medicine | Alanis, | | | 2019 | Visit | | MD Petrona | | | | | | [address] [place] | | | | | | [place] [address] | | | | | | [phone] | | | | | | | | +--------+---------+ + + + documented as of this encounter Procedures + +--------+ + + + | Procedure Name | Priori | Date/Time | Associated Diagnosis | Comments | | | ty | | | | + +--------+ + + + | LABS - EXTERNAL SCAN | | 08/14/2017 | | Results for this | | | | 12:00 AM | | procedure are in the | | | | PST | | results section. | + +--------+ + + + documented in this encounter Results LABS - EXTERNAL SCAN (08/14/2017 12:00 AM PST) + + + | Narrative | Performed At | + + + | Ordered by an | | | unspecified provider. | | + + + documented in this encounter Visit Diagnoses + + | Diagnosis | + + | Preop examination - Primary Preoperative examination, unspecified | + + | Trigger finger of all digits of left hand | + + documented in this encounter [...]
--- OUTSIDE RECORDS SUMMARY | ~2019-11-17 | XMS | Encounter Summary ---
Demographics + + + | Address | [address] | | | [place] [address] | + + + | Home Phone [...] Providers + +------+ + | Care Corporate Quality Manager Name | Role | Phone [...] + + | 04/02/ | Refill | [facility] | Alanis, | Medication Refill | | 2018 | | MEDICINE [address] [place] [address] | MD Petrona | | | | | [facility] | [address] [place] [address] | | | | | [place] [address] | [place] [address] | | | | | [phone] | [phone] | | | | | | | [...] | | | | | [place] [address] | | | | | | [phone] | | | | | | | | +--------+---------+ + + + | 12/20/ | Office | Otolaryngology | Ulysses Genao MD | | | 2019 | Visit | | [address] | | | | | | [address] [place], | | | | | | [place] [address] | | | | | | [phone] | | | | | | | | +--------+---------+ + + + | 02/15/ | Office | Internal Medicine | Alanis, | | | 2019 | Visit | | MD Petrona | | | | | | [address] [place] [address] [address] | | | | | | [place] [address] | | | | | | [phone] | | | | | | | | +--------+---------+ + + + documented as of this encounter Visit Diagnoses Not on filedocumented in this encounter"
--- OUTSIDE RECORDS SUMMARY | ~2019-11-17 | XMS | Encounter Summary ---
Demographics + + + | Address | [address] | | | [place] [address] | + + + | Home Phone [...] Providers + +------+ + | Care Supervisor Carpenters Name | Role | Phone | + [...] + | 08/14/ | Refill | [facility] | Alanis, | Medication Refill | | 2018 | | MEDICINE [address] [place] [address] | MD Petrona | | | | | [facility] | [address] [place] [address] | | | | | [place] [address] | [place] [address] | | | | | [phone] | [phone] | | | | | | | [...] | | | | | [place] [address] | | | | | | [phone] | | | | | | | | +--------+---------+ + + + | 12/20/ | Office | Otolaryngology | Ulysses Genao MD | | | 2019 | Visit | | [address] | | | | | | [address] [place], | | | | | | [place] [address] | | | | | | [phone] | | | | | | | | +--------+---------+ + + + | 02/15/ | Office | Internal Medicine | Alanis, | | | 2019 | Visit | | MD Petrona | | | | | | [address] [place] [address] [address] | | | | | | [place] [address] | | | | | | [phone] | | | | | | | | +--------+---------+ + + + documented as of this encounter Visit Diagnoses Not on filedocumented in this encounter"
--- OUTSIDE RECORDS SUMMARY | ~2019-11-17 | XMS | Encounter Summary ---
Demographics + + + | Address | [address] | | | [place] [address] | + + + | Home Phone [...] Providers + +------+ + | Care Abattoir Supervisor Name | Role | Phone | + +------+ + | Sulaiman Carrera MD | PCP | | + +------+ + Encounter Details +--------+ + + + + | Date | Type | Department | Care Team | Description | +--------+ + + + + | 03/19/ | Ancillary | Registration 9881 | | | | 2004 | Registratio | [address] | | | | | n | [address] Mailcode: [id number] | | | | | | [place], [place] | | | | | | [address] | | | | | | [phone] | | | +--------+ + + + [...]
--- OUTSIDE RECORDS SUMMARY | ~2019-11-17 | XMS | Encounter Summary ---
Demographics + + + | Address | [address] | | | [place] [address] | + + + | Home Phone [...] Providers + +------+ + | Care Long Lines Operator Name | Role | Phone | [...] | | | | [facility] | [place], [place] | | | | | [address] | [address] | | | | | [place], [place] | [phone] | | | | | [address] | | | | | | [phone] | | | +--------+ + + + [...] + + + | [facility] | [address] | [place] [address] | | | LABORATORY | | | [...] DEPARTMENT OF | [address] | [place] [address] | | | PATHOLOGY | [address] | | | + + + + + | [facility] | [address] | [place] [address] | | | PATHOLOGY | [address] | | | + + + + + documented in this encounter Visit Diagnoses Not on filedocumented in this encounter"
--- OUTSIDE RECORDS SUMMARY | ~2019-11-17 | XMS | Encounter Summary ---
Demographics + + + | Address | [address] | | | [place] [address] | + + + | Home Phone [...] Providers + +------+ + | Care Manager Advertising Name | Role | Phone | + +------+ + | Pedrito Gutierrez MD | PCP | | + +------+ + Encounter Details +--------+---------+ + + + | Date | Type | Department | Care Team | Description | +--------+---------+ + + + | 07/30/ | Office | Dig[facility]ive [facility] | Eliezer Ruano, | Abdominal Pain | | 2006 | Visit | [place] [address] | [address] | (Primary Dx) | | | | [address] Mailcode: CH4S | [address] | | | | | [facility] | [facility] [place] | | | | | and Healing, | [address] | | | | | [facility] 1, 6th | [phone] | | | | | Floor [place], [place] | | | | | | [address] | | | | | | [phone] | | | +--------+---------+ + + + [...] [facility] [address] [facility], 6th [place] [address] alena Palacio - 07/30 4:09 PM PSTS: [...]
--- OUTSIDE RECORDS SUMMARY | ~2019-11-17 | XMS | Encounter Summary ---
Demographics + + + | Address | [address] | | | [place] [address] | + + + | Home Phone [...] Team Providers + +------+ + | Care Life Support Technician Name | Role | Phone | [...] as of this encounter Progress Notes Interface, Haul Driver In - 03/26/2006 1:05 AM [facility] [place] [address] [place], [place] [address] or February 22, 2001 Pedrito Gutierrez M.D. [facility] [address] [place] [address] RE: BELINDA MEEHAN MR #: [id number] Dear [...] regarding this patient. Sincerely, Issac Meeks M.D. idea worker Division of Endocrinology, Diabetes, and Clinical Watch Train Assembler, Metabolic Disorders Clinic PBD / HS [id number] / [id number] / [id number] / [id number] signed by Interface, Haul Driver In at 03/26/2006 1:05 AM PDTdocume nted in this encounter Plan of Treatment Not on filedocumented as of this encounter Visit Diagnoses Not on filedocumented in this encounter
--- OUTSIDE RECORDS SUMMARY | ~2019-11-17 | XMS | Encounter Summary ---
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); Adjustment | | | | | [...] change every 72 hours. 2. Continue with Derry 10/325 1 tablet as needed for activity [...] able to see Dr Gutierrez yet b fl does have and appointment next week to [...] ev eduardo 72 hours. 2. Continue with Derry 10/325 1 tablet as needed for activity related pain NTE 3 per day. 3. Continue with pain psychology and physical therapy. 4. Follow up in two weeks to review medication management 5. Keep neurology evaluation as able with insurance aurthorization.- migraine headache eval uation 6. PCP to assess LE edema/swelling. DELFINA MOLINA [facility] Mail code CH 4P [facility] and [address] [address] Ailyn Foster 09/10/19 07 12:20 [...]
--- OUTSIDE RECORDS SUMMARY | ~2019-11-17 | XMS | Encounter Summary ---
Demographics + + + | Address | [address] | | | [place] [address] | + + + | Home Phone [...] Team Providers + +------+ + | Care Door Maker Name | Role | Phone | [...] Medicare/Ion | , MD [address] | [place], | | | | | escu | [address] | [place] [address] | | | | | Procedures | [place], | Phone: | | | | | OFFICE VISIT | [place] | [phone] | | | | | REGULAR | [address] | Fax: | | | | | | Phone: | [phone] | | | | | | [phone] | | | | | | | Fax: | | | | | | | [phone] | | +--------+--------+ + + + + Encounter Details +--------+---------+ + + + | Date | Type | Department | Care Team | Description | +--------+---------+ + + + | 12/07/ | Office | [facility] | Ulysses Dsouza MD | BPPV (benign | | 2015 | Visit | OTOLARYNGOLOGY [address] | [address] | paroxysmal | | | | [address] | [address] [facility] GABRIEL, | positional vertigo), | | | | [place], [place] | [place] [address] | left (Primary Dx); | | | | [address] | [phone] | Vertigo of central | | | | [phone] | | origin, left | +--------+---------+ + [...] MD - 12/07/2014 1:48 PM PDT [facility] OTOL[facility] [address] LOCATED WITHIN [facility] [address] OFFICE NOTE ULYSSES DSOUZA MD Patient: BELINDA MEEHAN Admitting: MR #: [id number] LOC: PT TYPE: Adm Date: 12/07/2014 : 1960 DATE OF VISIT: 12/07/2014. The patient is having a tremendous problem with her balance. At times she gets a spinning type sensation, other times she just tends to fall down and recently she has developed a w rist drop on the right arm. She has seen an orthopedist who put her in a splint. The [facility] ent has completed an MRI scan and [...] there is a question of a med [facility] involvement. The patient would repeatedly ask the [...] 12/07/2014 13:48:42 Transcribed on 12/08/2014 04:46:49 by [facility] job# [id number] Confirmation #: [id number] signed by Ulysses Dsouza MD at 12/08/2014 8:52 AM Ulysses Arnold MD - 12/07/2014 1:43 PM PDTSee dictation #[id number] signed by Dmitriy Dsouza MD at 12/07/2014 [...] | | | | | [place] [address] | | | | | | [phone] | | | | | | | | +--------+---------+ + + + | 12/20/ | Office | Otolaryngology | Ulysses Dsouza MD | | | 2019 | Visit | | [address] | | | | | | [address] [place], | | | | | | [place] [address] | | | | | | [phone] | | | | | | | | +--------+---------+ + + + | 02/15/ | Office | Internal Medicine | Alanis, | | | 2019 | Visit | | MD Petrona | | | | | | [address] [place] | | | | | | [place] [address] | | | | | | [phone] | | | | | | | | +--------+---------+ + + + documented as of this encounter Visit Diagnoses + + | Diagnosis | + + | BPPV (benign paroxysmal positional vertigo), left - Primary | + + | Vertigo of central origin, left | + + documented in this encounter
--- OUTSIDE RECORDS SUMMARY | ~2019-11-17 | XMS | Encounter Summary ---
Demographics + + + | Address | [address] | | | [place] [address] | + + + | Home Phone [...] Providers + +------+ + | Care Intake Man Name | Role | Phone | [...] + + | 05/04/ | Refill | [facility] | Alanis, | Medication Refill | | 2016 | | MEDICINE [address] [place] [address] | MD Petrona | | | | | [facility] | [address] [place] [address] | | | | | [place] [address] | [place] [address] | | | | | [phone] | [phone] | | | | | | | [...] | | | | | [place] [address] | | | | | | [phone] | | | | | | | | +--------+---------+ + + + | 12/20/ | Office | Otolaryngology | Ulysses Genao MD | | | 2019 | Visit | | [address] | | | | | | [address] [place], | | | | | | [place] [address] | | | | | | [phone] | | | | | | | | +--------+---------+ + + + | 02/15/ | Office | Internal Medicine | Alanis, | | | 2019 | Visit | | MD Petrona | | | | | | [address] [place] [address] [place] [address] | | | | | | [place] [address] | | | | | | [phone] | | | | | | | | +--------+---------+ + + + documented as of this encounter Visit Diagnoses Not on filedocumented in this encounter"
--- OUTSIDE RECORDS SUMMARY | ~2019-11-17 | XMS | Encounter Summary ---
Demographics + + + | Address | [address] | | | [place] [address] | + + + | Home Phone [...] Providers + +------+ + | Care Wood Barrel Reconditioner Name | Role | Phone | + [...] | | | | | RE/Emmy | [place], [place] | [place], [place] | | | | | Procedures | [address] | [address] Phone: | | | | | [place] | Phone: | [phone] | | | | | SPONTANEOUS | [phone] | Fax: | | | | | [facility] | Fax: | [phone] | | | | | TEST MA | [phone] | | | | | | POSITIONAL | | | | | | | NYSTAGMUS | | | | | | | TEST MA | | | | | | | CALORIC | | | | | | | VESTIBULAR | | | | | | | TEST MA | | | | | | | OPTOKINETIC | | | | | | | NYSTAGMUS | | | | | | | TEST MA | | | | | | | OSCILLATING | | | | | | | TRACKING | | | | | | | TEST MA | | | | | | | SUPPLEMENTAL | | | | | | | ELECTRICAL | | | | | | | TEST MA | | | | | | | [...] + | 12/07/ | Office | [facility] | Elisabet [place], [place] | Vertigo of central | | 2015 | Visit | AUDIOLOGY AND | [facility] [address] | origin, unspecified | | | | [facility] | [address] [facility] | laterality (Primary | | | | [address] | [place] [address] | Dx) | | | | [facility] | [phone] | | | | | [place] [address] | | | | | | [phone] | | | +--------+---------+ + + + [...] M.D. VNG testing revealed abnormal oculomotor subtests. [facility] pike revealed nystagmus when [...] | | | | | [place] [address] | | | | | | [phone] | | | | | | | | +--------+---------+ + + + | 12/20/ | Office | Otolaryngology | Ulysses Genao MD | | | 2019 | Visit | | [address] [place] | | | | | | [address] [place], | | | | | | [place] [address] | | | | | | [phone] | | | | | | | | +--------+---------+ + + + | 02/15/ | Office | Internal Medicine | Alansi, | | | 2019 | Visit | | MD Petrona | | | | | | [address] [place] | | | | | | [place] [address] | | | | | | [phone] | | | | | | | [...]
--- OUTSIDE RECORDS SUMMARY | ~2019-11-17 | XMS | Encounter Summary ---
Demographics + + + | Address | [address] | | | [place] [address] | + + + | Home Phone [...] Team Providers + +------+ + | Care Freelance Recruiter Name | Role | Phone | [...] + + | 07/16/ | Telephone | [facility] INTER[facility] | Alanis, | IV Medication | | 2017 | | MEDICINE [address] [place] [address] | MD Petrona | | | | | [facility] | [address] [place] [address] | | | | | [place] [address] | [place] [address] | | | | | [phone] | [phone] | | | | | | | [...] | | | | | [place] [address] | | | | | | [phone] | | | | | | | | +--------+---------+ + + + | 12/20/ | Office | Otolaryngology | Ulysses Genao MD | | | 2019 | Visit | | [address] | | | | | | [address] [place], | | | | | | [place] [address] | | | | | | [phone] | | | | | | | | +--------+---------+ + + + | 02/15/ | Office | Internal Medicine | Alanis, | | | 2019 | Visit | | MD Petrona | | | | | | [address] [place] | | | | | | [place] [address] | | | | | | [phone] | | | | | | | | +--------+---------+ + + + documented as of this encounter Visit Diagnoses Not on filedocumented in this encounter"
--- OUTSIDE RECORDS SUMMARY | ~2019-11-17 | XMS | Encounter Summary ---
Demographics + + + | Address | [address] | | | [place] [address] | + + + | Home Phone [...] Team Providers + +------+ + | Care Activities Volunteer Name | Role | Phone | + [...] | Visit | [facility] [address] | BANKING AND FINANCE INSTRUCTOR | Disc Disease; | | | | [address] | | Fibromyalgia | | | | Physician's | | | | | | Pavilion, 4th Floor | | | | | | [place], [place] | | | | | | [address] | | | | | | [phone] | | | +--------+---------+ + + + [...] the LBP is gone. Dr. Ricky smith [place] was her surgeon. She think s a [...] 300 mg) by oral route once daily vishltpdtf-umxntpwtkmohl-zbkzcatd (FIORICET) 50-325-40 mg Oral Tablet take 2 [...]
--- OUTSIDE RECORDS SUMMARY | ~2019-11-17 | XMS | Encounter Summary ---
Demographics + + + | Address | [address] | | | [place] [address] | + + + | Home Phone [...] Team Providers + +------+ + | Care Medicare Biller Name | Role | Phone | + [...] + | 09/04/ | Refill | [facility] | Alanis, | Medication Refill | | 2018 | | MEDICINE [address] [place] [address] | MD Petrona | | | | | [facility] | [address] [place] [address] | | | | | [place] [address] | [place] [address] | | | | | [phone] | [phone] | | | | | | | [...] | | | | | [place] [address] | | | | | | [phone] | | | | | | | | +--------+---------+ + + + | 12/20/ | Office | Otolaryngology | Ulysses Genao MD | | | 2019 | Visit | | [address] | | | | | | [address] [place], | | | | | | [place] [address] | | | | | | [phone] | | | | | | | | +--------+---------+ + + + | 02/15/ | Office | Internal Medicine | Alanis, | | | 2019 | Visit | | MD Petrona | | | | | | [address] [place] [address] [address] | | | | | | [place] [address] | | | | | | [phone] | | | | | | | | +--------+---------+ + + + documented as of this encounter Visit Diagnoses Not on filedocumented in this encounter"
--- OUTSIDE RECORDS SUMMARY | ~2019-11-17 | XMS | Encounter Summary ---
Demographics + + + | Address | [address] | | | [place] [address] | + + + | Home Phone [...] Team Providers + +------+ + | Care Drop Hammer Mechanic Name | Role | Phone | [...] + + | 08/04/ | Refill | [facility] | Alanis, | Medication Refill | | 2017 | | MEDICINE [address] [place] [address] | MD Petrona | | | | | [facility] | [address] [place] [address] | | | | | [place] [address] | [place] [address] | | | | | [phone] | [phone] | | | | | | | [...] | | | | | [place] [address] | | | | | | [phone] | | | | | | | | +--------+---------+ + + + | 12/20/ | Office | Otolaryngology | Ulysses Genao MD | | | 2019 | Visit | | [address] | | | | | | [address] [place], | | | | | | [place] [address] | | | | | | [phone] | | | | | | | | +--------+---------+ + + + | 02/15/ | Office | Internal Medicine | Alanis, | | | 2019 | Visit | | MD Petrona | | | | | | [address] [place] [address] [address] | | | | | | [place] [address] | | | | | | [phone] | | | | | | | | +--------+---------+ + + + documented as of this encounter Visit Diagnoses Not on filedocumented in this encounter"
--- OUTSIDE RECORDS SUMMARY | ~2019-11-17 | XMS | Encounter Summary ---
Demographics + + + | Address | [address] | | | [place] [address] | + + + | Home Phone [...] Team Providers + +------+ + | Care Crabbing Machine Operator Name | Role | Phone [...] + + | 09/06/ | Refill | [facility] | Alanis, | Medication Refill | | 2019 | | MEDICINE [address] | MD Petrona | | | | | [facility] | [address] [place] [address] | | | | | [place] [address] | [place] [address] | | | | | [phone] | [phone] | | | | | | | [...] | | | | | [place] [address] | | | | | | [phone] | | | | | | | | +--------+---------+ + + + | 12/20/ | Office | Otolaryngology | Ulysses Genao MD | | | 2019 | Visit | | [address] | | | | | | [address] [place], | | | | | | [place] [address] | | | | | | [phone] | | | | | | | | +--------+---------+ + + + | 02/15/ | Office | Internal Medicine | Alanis, | | | 2019 | Visit | | MD Petrona | | | | | | [address] [place] [address] [address] [place] | | | | | | [place] [address] | | | | | | [phone] | | | | | | | | +--------+---------+ + + + documented as of this encounter Visit Diagnoses Not on filedocumented in this encounter"
--- OUTSIDE RECORDS SUMMARY | ~2019-11-17 | XMS | Encounter Summary ---
Demographics + + + | Address | [address] | | | [place] [address] | + + + | Home Phone [...] + +------+ + | Care Cloth Washer Operator Name | Role | Phone | [...] + | 06/28/ | Office | [facility] Comprehensive | Delfina Molina, | LBP (Low Back Pain); | | 2007 | Visit | Pain Center at | ANP | Encounter for | | | | [facility] | | Long-Term (Current) | | | | [address] | | Use of Opioids; | | | | Mailcode: CH15P | | Arthroplasty of the | | | | [place] [facility] | | Left Knee; Bilateral | | | | and Healing, | | Knee Pain; DJD | | | | Building | | (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 Epidural steroid injections are awhile call to schedule with Dr. Kylah SHEEHAN. documented in this encounter Progress Notes Delfina Molina - 06/28/2007 8:56 AM PSTFormatting of this note might be different from th e original. 06/28/2007 Belinda Meehan is a 47 y.o. female [facility] Comprehensive Pain Center Return Visit Chief [...] be in bed so long. 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 Current outpatient medications Medication Sig Dispense Refill [...] Time Resulting Agency 05/25/2007 4:06 PM [facility] DEPARTMENT OF RADIOLOGY Component Results MR CERVICAL [...] with any concerns or questions. DELFINA MOLINA [facility] Mail code CH 4P [facility] [address] [facility] [address] Ailyn Bello 06/28/19 08 8:38 [...]
--- OUTSIDE RECORDS SUMMARY | ~2019-11-17 | XMS | Encounter Summary ---
Demographics + + + | Address | [address] | | | [place] [address] | + + + | Home Phone [...] Team Providers + +------+ + | Care Commissioner Of Officials Name | Role | Phone [...] Required | | | i, | [address] | | | | | osteoporosis | Sulaiman-Russell | [place], | | | | | without | , MD [address] | [place] [address] | | | | | current | [address] | Phone: | | | | | pathological | [place], | [phone] | | | | | fracture | [place] | Fax: | | | | | | [address] | [phone] | | | | | | Phone: | | | | | | | [phone] | | | | | | | Fax: | | | | | | | [phone] | | +--------+ + + + + + Reason for Visit + + + | Reason | Comments | + + + | Medication Orders | | + + + Encounter Details +--------+ + + + + | Date | Type | Department | Care Team | Description | +--------+ + + + + | 09/20/ | Telephone | [facility] | Alanis, | Medication Orders | | 2018 | | MEDICINE [address] [place] [address] | MD Petrona | | | | | [facility] | [address] [place] [address] | | | | | [place] [address] | [place] [address] | | | | | [phone] | [phone] | | | | | | | [...] | | | | | [place] [address] | | | | | | [phone] | | | | | | | | +--------+---------+ + + + | 12/20/ | Office | Otolaryngology | Ulysses Genao MD | | | 2019 | Visit | | [address] | | | | | | [address] [place], | | | | | | [place] [address] | | | | | | [phone] | | | | | | | | +--------+---------+ + + + | 02/15/ | Office | Internal Medicine | Alanis, | | | 2019 | Visit | | MD Petrona | | | | | | [address] [place] | | | | | | [place] [address] | | | | | | [phone] | | | | | | | [...]
--- OUTSIDE RECORDS SUMMARY | ~2019-11-17 | XMS | Encounter Summary ---
Demographics + + + | Address | [address] | | | [place] [address] | + + + | Home Phone [...] Providers + +------+ + | Care Transportation Specialist Name | Role | Phone | [...] | | | | | abdominal | [place] | [address] [facility] | | | | | pain | Health & | [facility] | | | | | Procedures | Science | [address] [place], | | | | | REQUEST TO | University | [place] | | | | | SURGERY | [address] [facility] | [address] | | | | | OCEANOGRAPHER PHYSICAL | Naeem Mcrae | Phone: | | | | | [place] | Rd | [phone] | | | | | EXPLORATORY | [place], [place] | Fax: | | | | | OF ABDOMEN | [address] | [phone] | | | | | [place] | | | | | | [...] | | | | | | [address] [place], | | | | | | | [place] | | | | | | | [address] | | | | | | | Phone: | | | | | | | [phone] | | | | | | | Fax: | | | | | | | [phone] | +--------+--------+ + + + + Encounter [...] | | | [facility] | [place], [place] | | | | | and Healing, | [address] | | | | | Building 1, 6th | [phone] | | | | | Floor [place], [place] | | | | | | [address] | | | | | | [phone] | | | +--------+---------+ + + + [...] the resident s note. CHRIS RUANO MD [facility] [address] [facility] 6th [place] [address] Chris Peralta - 10:55 AM [...] not work at this time. Lives in [place], [place] FH: Noncontributory ROS: No recent fevers, [...] + + + + + | [facility] | [address] | [place] [address] | | | PATHOLOGY | [address] | | | + + + + + | [facility] | [address] | [place] [address] | | | PATHOLOGY | [address] [...]
--- OUTSIDE RECORDS SUMMARY | ~2019-11-17 | XMS | Encounter Summary ---
Demographics + + + | Address | [address] | | | [place] [address] | + + + | Home Phone [...] Providers + +------+ + | Care Chief Juvenile Probation Officer Name | Role | Phone | [...] | | | [facility] | [place], [place] | | | | | [address] | [address] | | | | | [address] | [phone] | | | | | Physician's Pavilion | | | | | | Physician's | | | | | | Pavilion [place], | | | | | | [place] [address] | | | | | | [phone] | | | +--------+ + + + [...]
--- OUTSIDE RECORDS SUMMARY | ~2019-11-17 | XMS | Encounter Summary ---
Demographics + + + | Address | [address] | | | [place] [address] | + + + | Home Phone [...] Providers + +------+ + | Care Liquor Maker Name | Role | Phone | [...] | Pain | Diagnoses | Miracle, | [place], | | | | Management | LBP (low | NIHARIKA Jean | Lukazs Rhodes, PhD | | | | | back pain) | [address] | [address] | | | | | DJD | [address] | Ave | | | | | (degenerativ | [place], [place] | [place], [place] | | | | | e joint | [address] | [address] | | | | | disease) of | | Phone: | | | | | knee Knee | | [phone] | | | | | pain Major | | Fax: | | | | | depressive | | [phone] | | | | | disorder, | [...] 03/03/ | Office | [facility] at [facility] | Lukasz Charles, | Major Depressive | | 2007 | Visit | [address] | PhD [address] | Disorder, Recurrent | | | | Mailcode: [facility] | [place], [place] | Episode, Moderate | | | | [facility] | [address] | ([facility]); LBP (Low Back | | | | and Healing, | [phone] | Pain); Bilateral | | | | | | Knee Pain; | | | | Floor [place], [place] | | Fibromyalgia | | | | [address] | | syndrome 729.1; | | | | [phone] | | Adjustment Disorder | | | [...] seems to be doing good self-care. Diagnosis: Rainelle I: 1. (296.32) Major depressive disorder, recurrent, moderate. 2. (309.24) Adjustment disorder with anxiety. 3. 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 Rainelle II: Deferred Rainelle III: abdominal pain, migraine headache, low back pain. Rainelle IV: low finances Rainelle V: GAF 55-60 Plan: return with next medical follow-up appointment. Check mood, pain, relaxation, activ ity, distraction, eating. Continue cognitive/behavioral therapy. Total time spent with patient was approximately 45 minutes. LUKASZ CHARLES PHD [facility] [address] [facility], 4th [place] [address] documented in this encount er Plan of Treatment + + +--------+ + + | Name | Type | Priori | Associated Diagnoses | Order Schedule | | | | ty | | | + + +--------+ + + | ID [id number], | Procedures | Routin | Major Depressive | Ordered: 03/03/2008 | | OFFICE (30-51) | | e | Disorder, Recurrent | [...]
--- OUTSIDE RECORDS SUMMARY | ~2019-11-17 | XMS | Encounter Summary ---
Demographics + + + | Address | [address] | | | [place] [address] | + + + | Home Phone [...] Providers + +------+ + | Care Adult Health Clinical Nurse Specialist Name | Role | [...] | Visit | [facility] [address] | GATE SUPERVISOR | syndrome 729.1 | | | | [address] | | (Primary Dx); | | | | Physician's | | Fibromyalgia | | | | Pavilion, 4th Floor | | | | | | [place], [place] | | | | | | [address] | | | | | | [phone] | | | +--------+---------+ + + + [...]
--- OUTSIDE RECORDS SUMMARY | ~2019-11-17 | XMS | Encounter Summary ---
Demographics + + + | Address | [address] | | | [place] [address] | + + + | Home Phone [...] Team Providers + +------+ + | Care Cart Pusher Name | Role | Phone | [...] | [address] | [place], [place] | | | | | [place], [place] | [address] | | | | | [address] | | | | | | [phone] | | | +--------+ + + + [...] | | | | | [place] [address] | | | | | | [phone] | | | | | | | | +--------+---------+ + + + | 12/20/ | Office | Otolaryngology | Ulysses Genao MD | | | 2019 | Visit | | [address] | | | | | | [address] [place], | | | | | | [place] [address] | | | | | | [phone] | | | | | | | | +--------+---------+ + + + | 02/15/ | Office | Internal Medicine | Alanis, | | | 2019 | Visit | | MD Petrona | | | | | | [address] [place] | | | | | | [place] [address] | | | | | | [phone] | | | | | | | | +--------+---------+ + + + documented as of this encounter Visit Diagnoses Not on filedocumented in this encounter"
--- OUTSIDE RECORDS SUMMARY | ~2019-11-17 | XMS | Encounter Summary ---
Demographics + + + | Address | [address] | | | [place] [address] | + + + | Home Phone [...] Providers + +------+ + | Care Continuous Improvement Black Belt Name | Role | Phone | + [...] + + | 10/07/ | Telephone | [facility] | Alanis, | Hip Pain | | 2017 | | MEDICINE [address] [place] [address] | MD Petrona | | | | | [facility] | [address] [place] [address] | | | | | [place] [address] | [place] [address] | | | | | [phone] | [phone] | | | | | | | [...] | | | | | [place] [address] | | | | | | [phone] | | | | | | | | +--------+---------+ + + + | 12/20/ | Office | Otolaryngology | Ulysses Genao MD | | | 2019 | Visit | | [address] [place] | | | | | | [address] [place], | | | | | | [place] [address] | | | | | | [phone] | | | | | | | | +--------+---------+ + + + | 02/15/ | Office | Internal Medicine | Alanis, | | | 2019 | Visit | | MD Petrona | | | | | | [address] [place] | | | | | | [place] [address] | | | | | | [phone] | | | | | | | | +--------+---------+ + + + documented as of this encounter Visit Diagnoses Not on filedocumented in this encounter"
--- OUTSIDE RECORDS SUMMARY | ~2019-11-17 | XMS | Encounter Summary ---
Demographics + + + | Address | [address] | | | [place] [address] | + + + | Home Phone [...] Team Providers + +------+ + | Care Owner Consulting Engineer Name | Role | Phone | + +------+ + | Petrona Thapa | PCP | | | MD | | | + +------+ + Encounter Details +--------+ + + + + | Date | Type | Department | Care Team | Description | +--------+ + + + + | 07/16/ | Orders Only | [facility] | Alanis, | | | 2017 | | MED CTR OP INFUSION | MD Petrona | | | | | [address] | [address] [facility] | | | | | [place], [place] | [place] [address] | | | | | [address] | [phone] | | | | | [phone] | | | +--------+ + + + [...] | | | | | [place] [address] | | | | | | [phone] | | | | | | | | +--------+---------+ + + + | 12/20/ | Office | Otolaryngology | Ulysses Genao MD | | | 2019 | Visit | | [address] [place] | | | | | | [address] [place], | | | | | | [place] [address] | | | | | | [phone] | | | | | | | | +--------+---------+ + + + | 02/15/ | Office | Internal Medicine | Alanis, | | | 2019 | Visit | | MD Petrona | | | | | | [address] [place] | | | | | | [place] [address] | | | | | | [phone] | | | | | | | | +--------+---------+ + + + documented as of this encounter Visit Diagnoses Not on filedocumented in this encounter"
--- OUTSIDE RECORDS SUMMARY | ~2019-11-17 | XMS | Encounter Summary ---
Demographics + + + | Address | [address] | | | [place] [address] | + + + | Home Phone [...] Team Providers + +------+ + | Care Branch Examiner Name | Role | Phone | [...] Rd | | | | | | [place], [place] | | | | | | [address] | | | +--------+ + + + [...]
--- OUTSIDE RECORDS SUMMARY | ~2019-11-17 | XMS | Encounter Summary ---
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 Diagnosis: Farwell I: 1. (296.32) Major depressive disorder, recurrent, moderate. 2. (309.24) Adjustment disorder with anxiety. 3. 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 Farwell II: Deferred Farwell III: abdominal pain, migraine headache, low back pain. Farwell IV: low finances Farwell V: GAF 55-60 Plan: Return with next medical follow-up appointment. Check mood, knee surgery, pacing, relaxati on, activity, distraction. Continue cognitive/behavioral therapy. Discuss need for further sessions. Total time spent with patient was approximately 45 minutes. LUKASZ CHARLES PHD [facility] [address] [facility], 4th [place] [address] documented in this encount er Plan of [...]
--- OUTSIDE RECORDS SUMMARY | ~2019-11-17 | XMS | Encounter Summary ---
Demographics + + + | Address | [address] | | | [place] [address] | + + + | Home Phone [...] Team Providers + +------+ + | Care Barge Pilot Name | Role | Phone | [...] 2007 | Only | [address] | [phone] | | | | | Rd Mailcode: RPB07 | | | | | | [place], [place] | | | | | | [address] | | | | | | [phone] | | | +--------+ + + + [...] | + + + + + | [facility] DEPARTMENT OF | [facility] | [place] [address] | | | PATHOLOGY | [address] | | | + + + + + | [place] DEPARTMENT OF | [facility] | [place] [address] | | | PATHOLOGY | [address] | | | + + + + + documented in this encounter Visit Diagnoses Not on filedocumented in this encounter"
--- OUTSIDE RECORDS SUMMARY | ~2019-11-17 | XMS | Encounter Summary ---
Demographics + + + | Address | [address] | | | [place] [address] | + + + | Home Phone [...] Team Providers + +------+ + | Care Game Advisor Name | Role | Phone | + +------+ + | Pedrito Gutierrez MD | PCP | | + +------+ + Encounter Details +--------+---------+ + + + | Date | Type | Department | Care Team | Description | +--------+---------+ + + + | 07/30/ | Office | Comprehensive [facility] | Nathalia Arora | Cervical Spondylosis | | 2006 | Visit | [facility] | [address] | without Myelopathy | | | | [place] [address] | Clementina Winkler [place], | (Primary Dx); | | | | Mychal Kovacs Mailcode: | [place] [address] | 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 1960 Start of Care: 06/23/2006 Referring Provider: [...] her today. Patient has multiple appts. At [facility] today, including a f/u regarding her [...]
--- OUTSIDE RECORDS SUMMARY | ~2019-11-17 | XMS | Encounter Summary ---
Demographics + + + | Address | [address] | | | [place] [address] | + + + | Home Phone [...] Providers + +------+ + | Care Ob Tech Name | Role | Phone | [...] Pavilion | | | | | | [place], [place] | | | | | | [address] | | | | | | [phone] | | | +--------+ + + + [...]
--- OUTSIDE RECORDS SUMMARY | ~2019-11-17 | XMS | Encounter Summary ---
Demographics + + + | Address | [address] | | | [place] [address] | + + + | Home Phone [...] Providers + +------+ + | Care Freight Forwarder Name | Role | Phone | + [...] 10/28/ | Office | [facility] at [facility] | Lukasz Charles, | Major Depressive | | 2006 | Visit | [address] | PhD [address] | Disorder, Recurrent | | | | Mailcode: CH15P | [place], [place] | Episode, Moderate | | | | [place] [facility] | [address] | ([facility]); Neck Pain; | | | | and Healing, | [phone] | Herniated Lumbar | | | | Building | | Intervertebral Disc | | | | Floor [place], [place] | | L4-5; 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 She has been doing cross stitch [...] She has using good self-care skills. Diagnosis: Left Hand I: 1. (296.32) Major depressive disorder, recurrent, moderate. 2. (309.24) Adjustment disorder with anxiety. 3. 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 Left Hand II: Deferred Left Hand III: abdominal pain, migraine headache, low back pain. Left Hand IV: low finances Left Hand V: GAF 50 Plan: Return in 2 weeks. Check preparation for move and for niece's visit, results of orthopedic visit. Check pacing, relaxation, activity, distraction. Continue cognitive/behavioral the rapy. Total time spent with patient was approximately 45 minutes. LUKASZ CHARLES [facility] [address] [facility], 4th [place] [address] documented in this encount er Plan of [...]
--- OUTSIDE RECORDS SUMMARY | ~2019-11-17 | XMS | Encounter Summary ---
Demographics + + + | Address | [address] | | | [place] [address] | + + + | Home Phone [...] Providers + +------+ + | Care Carpet Renovator Name | Role | Phone | + [...] + + | 02/15/ | Office | [facility] | Alanis, | Antibiotic-associate | | 2019 | Visit | MEDICINE [address] | MD Petrona | cristi diarrhea (Primary | | | | [address] [place] | [address] [facility] | Dx); alf | | | | [place] [address] | [place] [address] | prescription opiate | | | | [phone] | [phone] | use; Seasonal | | | | [...] | | | | | | [place] [address] | | | | | | [phone] | | | | | | | | +--------+---------+ + + + | 12/20/ | Office | Otolaryngology | Ulysses Genao MD | | | 2019 | Visit | | [address] [place] | | | | | | [address] [place], | | | | | | [place] [address] | | | | | | [phone] | | | | | | | | +--------+---------+ + + + | 02/15/ | Office | Internal Medicine | Alanis, | | | 2019 | Visit | | MD Petrona | | | | | | [address] [place] | | | | | | [place] [address] | | | | | | [phone] | | | | | | | [...] mL/min/1.73m2 | [facility] | | | [facility] | RATE,ESTIMATED | | MEDICAL | | | | mL/min/1.54p8Xyzs than | | CENTER - | | [...] | ine Ratio | | | [facility] | [...] + | [facility] | [address] | [place] | [phone] | | [facility] | | [address] | | | - LABORATORY | | [...] LDL, | 74 | <=130 mg/dL | [facility] | | | Calculated | | | [facility] | | [...] [address] | [place] | [phone] | | [facility] | | [address] | | | - LABORATORY | | | | + + + + + documented in this encounter Visit Diagnoses + + | Diagnosis | + + | Antibiotic-associated diarrhea - Primary Diarrhea | + + | salvage determiner prescription opiate use | + + | [...] | | | | First dose on [facility] 10/15/17 at 1215 | | [...]
--- OUTSIDE RECORDS SUMMARY | ~2019-11-17 | XMS | Encounter Summary ---
Demographics + + + | Address | [address] | | | [place] [address] | + + + | Home Phone [...] Providers + +------+ + | Care Early Childhood Education Specialist Name | Role | Phone | [...] Status Post | | 2007 | | [place] [address] | [address] [facility] | Bariatric Surgery | | | | Ave Mailcode: CH4S | [address] | (Primary Dx) | | | | [facility] | [place], [place] | | | | | and Healing, | [address] | | | | | Building 1, 6th | [phone] | | | | | Floor [place], [place] | | | | | | [address] | | | | | | [phone] | | | +--------+ + + + [...] | | | | | ng/mLPerformed by [facility] | | | | | | [facility],[address] | | | | | | [place], [facility] [place] [address] | | | | | | [phone] | | | | | Sincere [...] [facility] | [address] | [place], [place] | | | [facility] | | [address] | | + + + + + [...] + + + + | [facility] | [address] | [place] [address] | | | LABORATORY | | | [...] RLB ([facility]) | | | [facility] [place] [address] | | | [place] [address] | | + + + + + + + + | Performing | Address | City/State/Zipcode | Phone Number | | Organization | | | | + + + + + | [facility] | [address] | [place] [address] | | | LABORATORY | | | [...] RL ([facility] [facility]) | | | [facility] [place] [address] [facility] | | | [place] [address] | | + + + + + + + + | Performing | Address | City/State/Zipcode | Phone Number | | Organization | | | | + + + + + | [facility] | [address] [facility] | [place] [address] | | | LABORATORY | | | [...] Performed At | + + + | [address] Estimated GFR > 60 mL/min/1.73 sq m if non- | [facility] | | [address] Estimated GFR > 60 mL/min/1.73 sq m [...] [facility] DEPARTMENT OF | [address] | [place] [address] | | | PATHOLOGY | [address] | | | + + + + + | [place] DEPARTMENT | [address] | [place] [address] | | | PATHOLOGY | [address] [...] + + | [facility] | [address] | [place] [address] | | | PATHOLOGY | [address] | | | + + + + + | [facility] | [address] | [place] [address] | | | PATHOLOGY | [address] | | | + + + + + documented in this encounter Visit Diagnoses + + | Diagnosis | + + | Status post bariatric surgery - Primary Bariatric surgery status | + + documented in this encounter"
--- OUTSIDE RECORDS SUMMARY | ~2019-11-17 | XMS | Encounter Summary ---
Demographics + + + | Address | [address] | | | [place] [address] | + + + | Home Phone [...] Providers + +------+ + | Care Head Trimmer Name | Role | Phone | [...] 2007 | Visit | Rheumatology [address] | syndrome 729.1 | | | | [address] | | (Primary Dx) | | | | Mailcode: OPC5 | | | | | | Outpatient Clinic | | | | | | Building [place], | | | | | | [place] [address] | | | | | | [phone] | | | +--------+---------+ + + + [...] have much room. I wonder about small propagator ior fossa. There is a disc bulge [...] 07/05/2007 56.0 15.0-75.0 Final Test performed by [facility]. VITAMIN D 25 HYDROXY (ng/mL) 07/03/2007 47 20-57 Final Comment: TEST INFORMATION: VITAMIN D, 25-HYDROXY This assay accurately quantifies the sum of vitamin D3, 25-hydroxy and vitamin D2, 25-hydroxy. Deficiency: Less than 20 ng/mL Insufficiency: 20-29 ng/mL Optimum Level: 30-80 ng/mL Possible Toxicity: Greater than 80 ng/mL Performed by [facility], [address] [place] [id number] [email or web address], Sincere Jordan MD - Lab. Director documented in this encount er Plan of Treatment Not on filedocumented as of this encounter Visit Diagnoses + + | Diagnosis | + + | Fibromyalgia syndrome 729.1 - Primary Mylagia and myositis, unspecified | + + documented in this encounter"
--- OUTSIDE RECORDS SUMMARY | ~2019-11-17 | XMS | Encounter Summary ---
Demographics + + + | Address | [address] | | | [place] [address] | + + + | Home Phone [...] Team Providers + +------+ + | Care Insecticide Expert Name | Role | Phone | + +------+ + | Petrona Thapa | PCP | | | MD | | | + +------+ + Encounter Details +--------+ + + + + | Date | Type | Department | Care Team | Description | +--------+ + + + + | 03/02/ | Hospital | [facility] | Alanis, | Neck pain on right | | 2018 | Encounter | [facility] | MD Petrona | side | | | | [address] [place] | [address] [place] | | | | | [place], [place] | [place] [address] | | | | | [address] | [phone] | | | | | [phone] | | | +--------+ + + + [...] tablet by | 60 | 3 | 11/20/20 | | | (ROBAXIN) 750 mg | [...] | | | | | [place] [address] | | | | | | [phone] | | | | | | | | +--------+---------+ + + + | 12/20/ | Office | Otolaryngology | Ulysses Genao MD | | | 2019 | Visit | | [address] [place] | | | | | | [address] [place], | | | | | | [place] [address] | | | | | | [phone] | | | | | | | | +--------+---------+ + + + | 02/15/ | Office | Internal Medicine | Alanis, | | | 2019 | Visit | | MD Petrona | | | | | | [address] [place] | | | | | | [place] [address] | | | | | | [phone] | | | | | | | [...]
--- OUTSIDE RECORDS SUMMARY | ~2019-11-17 | XMS | Encounter Summary ---
Demographics + + + | Address | [address] | | | [place] [address] | + + + | Home Phone [...] Providers + +------+ + | Care Conduit Cleaner Name | Role | Phone | [...] | | Osteoporosis | i, | [address] [place] | | | | | , | Petrona | [place], | | | | | unspecified | , MD [address] | [place] [address] | | | | | osteoporosis | [address] | Phone: | | | | | type, | [place], | [phone] | | | | | unspecified | [place] | Fax: | | | | | pathological | [address] | [phone] | | | | | fracture | Phone: | | | | | | presence | [phone] | | | | | | Procedures | Fax: | | | | | | [place] | [phone] | | | | | | ZOLEDRONIC | | | | | | | ACID 1MG | | | +--------+ + + + + + Encounter Details +--------+ + + + + | Date | Type | Department | Care Team | Description | +--------+ + + + + | 07/20/ | Orders Only | [facility] | Alanis, | Osteoporosis, | | 2017 | | MEDICINE [address] [place] [address] | MD Petrona | unspecified | | | | [facility] | [address] [place] [address] | osteoporosis type, | | | | [place] [address] | [place] [address] | unspecified | | | | [phone] | [phone] | pathological | | | | | [...] | | | | | [place] [address] | | | | | | [phone] | | | | | | | | +--------+---------+ + + + | 12/20/ | Office | Otolaryngology | Ulysses Genao MD | | | 2019 | Visit | | [address] | | | | | | [address] [place], | | | | | | [place] [address] | | | | | | [phone] | | | | | | | | +--------+---------+ + + + | 02/15/ | Office | Internal Medicine | Neerajjti, | | | 2019 | Visit | | MD Petrona | | | | | | [address] | | | | | | [place] [address] | | | | | | [phone] | | | | | | | [...]
--- OUTSIDE RECORDS SUMMARY | ~2019-11-17 | XMS | Encounter Summary ---
Demographics + + + | Address | [address] | | | [place] [address] | + + + | Home Phone [...] Providers + +------+ + | Care Fire Sprinkler Service Technician Name | Role | Phone [...] | | | [facility] | [place], [place] | and counseling | | | | [address] | [address] | | | | | [address] | [phone] | | | | | [facility] | | | | | | Physician's | | | | | | Pavilion [place], | | | | | | [place] [address] | | | | | | [phone] | | | +--------+ + + + [...]
--- OUTSIDE RECORDS SUMMARY | ~2019-11-17 | XMS | Encounter Summary ---
Demographics + + + | Address | [address] | | | [place] [address] | + + + | Home Phone [...] Providers + +------+ + | Care Oracle Business Intelligence Developer Name | Role | Phone | [...] + + | 03/30/ | Telephone | [facility] | Alanis, | Appointment | | 2019 | | MEDICINE [address] [place] [address] | MD Petrona | | | | | [facility] | [address] [place] [address] | | | | | [place] [address] | [place] [address] | | | | | [phone] | [phone] | | | | | | | [...] | | | | | [place] [address] | | | | | | [phone] | | | | | | | | +--------+---------+ + + + | 12/20/ | Office | Otolaryngology | Ulysses Genao MD | | | 2020 | Visit | | [address] | | | | | | [address] [place], | | | | | | [place] [address] | | | | | | [phone] | | | | | | | | +--------+---------+ + + + | 02/15/ | Office | Internal Medicine | Alanis, | | | 2019 | Visit | | MD Petrona | | | | | | [address] | | | | | | [place] [address] | | | | | | [phone] | | | | | | | | +--------+---------+ + + + documented as of this encounter Visit Diagnoses Not on filedocumented in this encounter"
--- OUTSIDE RECORDS SUMMARY | ~2019-11-17 | XMS | Encounter Summary ---
Demographics + + + | Address | [address] | | | [place] [address] | + + + | Home Phone [...] Providers + +------+ + | Care Slab Depiler Operator Name | Role | Phone | [...] | Visit | [facility] [address] | DAIRY QUALITY ASSURANCE OFFICER | Disc Disease; | | | | [address] | | Fibromyalgia | | | | Physician's | | | | | | Pavilion, 4th Floor | | | | | | [place], [place] | | | | | | [address] | | | | | | [phone] | | | +--------+---------+ + + + [...] the LBP is gone. Dr. Ricky smith [place] was her surgeon. She think s a [...] 300 mg) by oral route once daily caakrmbeqm-tvasezlntfccb-rnavltwy (FIORICET) 50-325-40 mg Oral Tablet take 2 [...]
--- OUTSIDE RECORDS SUMMARY | ~2019-11-17 | XMS | Encounter Summary ---
Demographics + + + | Address | [address] | | | [place] [address] | + + + | Home Phone [...] Team Providers + +------+ + | Care Clutch Specialist Name | Role | Phone | [...] | | | | [address] [facility] | [place], [place] | | | | | [address] | [address] | | | | | [place], [place] | [phone] | | | | | [address] | | | | | | [phone] | | | +--------+ + + + [...]
--- OUTSIDE RECORDS SUMMARY | ~2019-11-17 | XMS | Encounter Summary ---
Demographics + + + | Address | [address] | | | [place] [address] | + + + | Home Phone [...] + +------+ + | Care Timber Management Assistant Name | Role | Phone [...] of this encounter Progress Notes Interface, Field Agent In - 01/12/2005 8:09 AM PDT [id number] [facility] Date: 10/23/2003 Clinic: Ms. Meehan is [...] ahead. Chris Padgett M.D. CD / HS [id number] / [id number] / [id number] / [id number] documented i n this encounter Plan of Treatment Not on filedocumented as of this encounter Visit Diagnoses Not on filedocumented in this encounter"
--- OUTSIDE RECORDS SUMMARY | ~2019-11-17 | XMS | Encounter Summary ---
Demographics + + + | Address | [address] | | | [place] [address] | + + + | Home Phone [...] Team Providers + +------+ + | Care Turner Machine Name | Role | Phone | [...] + + | 08/28/ | Office | [facility] Comprehensive | Delfina Lambert, | Neck Pain; Radicular | | 2008 | Visit | Pain Center at | ANP | Pain in Left Arm; | | | | [facility] | | Fibromyalgia; | | | | [address] | | Chronic Bilateral | | | | Mailcode: CH15P | | Shoulder Pain; | | | | [facility] | | Coccydynia; LBP (Low | | | | and Healing, | | Back Pain); | | | | Building | | Adjustment Disorder | | | | Floor [place], [place] | | with Anxiety; Major | | | | [address] | | Depressive Disorder, | | | | [phone] | | Recurrent Episode, | | | [...] Belinda Meehan is a 48 y.o. female [facility] Return Visit Chief [...] drawing has be completed, which I reviewed. 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 MRI results reviewd with patient DELFNIA BUNDY [facility] Mail code [address] for [facility] and [address] [address] Ty Omalley - 08/13 3:00 [...] 12 tablets per day. documented in this up health system Plan of Treatment Not on filedocumented as [...]
--- OUTSIDE RECORDS SUMMARY | ~2019-11-17 | XMS | Encounter Summary ---
[...] + +------+ + | Care Head Of Human Resources Name | Role | Phone | + [...] + + | 01/11/ | Office | [facility] Comprehensive | Delfina Molina, | Left Knee Pain; DJD | | 2006 | Visit | Pain Center at | ANP | (Degenerative Joint | | | | [facility] | | Disease) of Knee; | | | | [address] | | Herniated Lumbar | | | | Mailcode: CH15P | | Intervertebral Disc | | | | [facility] | | L4-5; Spondylosis | | | | and Healing, | | with Myelopathy, | | | | Building | | Lumbar Region; | | | | Floor [place], [place] | | Fibromyalgia | | | | [address] | | syndrome 729.1; | | | | [phone] | | Encounter for | | | [...] 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 Belinda Meehan is here today for a [...] until surgery pending 02/13 12/19. DELFINA MOLINA [facility] Center Mail code CH 4P [facility] and [address] [address] Ailyn Foster - 01/12/20 07 [...]
--- OUTSIDE RECORDS SUMMARY | ~2019-11-17 | XMS | Encounter Summary ---
Demographics + + + | Address | [address] | | | [place] [address] | + + + | Home Phone [...] Providers + +------+ + | Care Executive Personal Assistant Name | Role | Phone | + +------+ + | Pedrito Gutierrez MD | PCP | | + +------+ + Encounter Details +--------+ + + + + | Date | Type | Department | Care Team | Description | +--------+ + + + + | 05/20/ | Telephone | Digestive Health | Rohan Foley MD | | | 2005 | | [place] [facility] 1977 | | | | | | [address] | | | | | | Mailcode: Center | | | | | | for Health and | | | | | | [facility], Building [address] | | | | | | [place], [place] | | | | | | [address] | | | | | | [phone] | | | +--------+ + + + [...]
--- OUTSIDE RECORDS SUMMARY | ~2019-11-17 | XMS | Encounter Summary ---
Demographics + + + | Address | [address] | | | [place] [address] | + + + | Home Phone [...] Providers + +------+ + | Care Blow Molder Name | Role | Phone | [...] + + | 08/14/ | Office | [facility] INTERNAL | Alanis, | Situational insomnia | | 2020 | Visit | MEDICINE [address] | MD Petron[place] | (Primary Dx); | | | | [facility] | [address] [place] [address] | Situational | | | | [place] [address] | [place] [address] | depression | | | | [phone] | [phone] | | | | | | | [...] Total Score 10 (08/15/19934) (Printable questionnaires in Nicaraguan ) Interpretation of Total Score: 1-4 = [...] COPD (chronic obstructive pulmonary disease) ([facility]) Depression Diarrhea Dumping syndrome Fall [...] with myelopathy, lumbar region Stroke ([facility]) Syncope Tremor Type II or [...] COLONOSCOPY; Surgeon: Luther Brito MD; Location: [facility] MEDICAL PROCEDURE UNIT DILATION AND CURETTAGE OF UTERUS ELBOW SURGERY FINGER TRIGGER RELEASE 2003 FINGER TRIGGER RELEASE 2010 GASTRIC BYPASS SURGERY 2004 HYSTERECTOMY 05/14/1980 JOINT REPLACEMENT Bilateral 2006 2007 KNEE ARTHROSCOPY 2005 LAPAROSCOPY 01/27/2015 LAPAROTOMY 2008 ROTATOR CUFF REPAIR 2005 SPINE SURGERY TONSILLECTOMY 1964 UPPER GASTROINTESTINAL ENDOSCOPY N/A 12/18/2017 Procedure: EGD; Surgeon: Luther Brito MD; Location: [facility] MEDICAL PROCEDURE UNIT CURRENT MEDICATIONS Current [...] ours as needed for Pain. Incontinence Supplies [facility] As directed 100 each 11 [...] Allergen Reactions Ensure Diarrhea Food Diarrhea Lactose Psayjawqpg-Lxs-Zidt-Codeine Other (See Comments) Balance problems Codeine Sulfate Nausea Only Food Allergy Formula Diarrhea Ensure Levofloxacin Hives, Itching and Rash Butalbital Ropinirole Amitriptyline Hcl Other (See Comments) Confused and questionable for seizures Iedjizilep-Gddm-Dknfwjvf Rash duplicate Rnvxpwruvd-Eamr-Cqibtvmc Hives and Rash Cephalexin Hives Ciprofloxacin Hives and Rash Clarithromycin Hives and Rash Clindamycin Hcl Hives and Rash Doxycycline Rash Duloxetine Other (See Comments) Migraines and nausea Ketorolac Hives Levofloxacin Hives and Rash Morphine Swelling Penicillins Hives and Rash Ropinirole Hcl Hives Sulfamethoxazole-Trimethoprim Hives and Rash Tramadol Hcl Nausea Only FOLLOW-UP No follow-ups on file. Notes: 1. Parts of this documentwere created using Mavizon speech recognition software. As a resu lt, [...] | [facility] [address] | | | | | | [address] [place] | | | | | | [place] [address] | | | | | | [phone] | | | | | | | | +--------+---------+ + + + | 12/20/ | Office | Otolaryngology | Ulysses Genao MD | | | 2019 | Visit | | [address] | | | | | | [address] [place], | | | | | | [place] [address] | | | | | | [phone] | | | | | | | | +--------+---------+ + + + | 02/15/ | Office | Internal Medicine | Alanis, | | | 2019 | Visit | | MD [place]ron[place] | | | | | | [address] [place] | | | | | | [place] [address] | | | | | | [phone] | | | | | | | [...] | | | First dose on [facility] 10/15/17 at 1215 | | | [...]
--- OUTSIDE RECORDS SUMMARY | ~2019-11-17 | XMS | Encounter Summary ---
Demographics + + + | Address | [address] | | | [place] [address] | + + + | Home Phone [...] Providers + +------+ + | Care Industrial Coffee Grinder Name | Role | Phone | [...] | | | | | [address] | [address] [facility] | | | | | [place], [place] | [place] [address] | | | | | [address] | [phone] | | | | | [phone] | | | +--------+ + + + + Anesthesia Record + + + + + | Procedure Name | Responsible | Anesthesia Start | Anesthesia Stop Time | | | Anesthesiologist | Time | | + + + + + | DIONNE (N/A Mouth) | Ruben Treviño | 12/18/17 [...] 12/18/17 1321 by | | lyssa | pudw-qnj-ioqgge catheter system; | Jaye Bird, | Lucy [...] | | | | | [place] [address] | | | | | | [phone] | | | | | | | | +--------+---------+ + + + | 12/20/ | Office | Otolaryngology | Ulysses Genao MD | | | 2019 | Visit | | [address] | | | | | | [address] [place], | | | | | | [place] [address] | | | | | | [phone] | | | | | | | | +--------+---------+ + + + | 02/15/ | Office | Internal Medicine | Alanis, | | | 2019 | Visit | | MD [place]rona | | | | | | [address] [place] | | | | | | [place] [address] | | | | | | [phone] | | | | | | | [...]
--- OUTSIDE RECORDS SUMMARY | ~2019-11-17 | XMS | Encounter Summary ---
Demographics + + + | Address | [address] | | | [place] [address] | + + + | Home Phone [...] + +------+ + | Care Community Development Specialist Name | Role | Phone [...] Hospital | | | | | | [place], [facility] Floor | | | | | | [place], [place] | | | | | | [address] | | | | | | [phone] | | | +--------+ + + + [...]
--- OUTSIDE RECORDS SUMMARY | ~2019-11-17 | XMS | Encounter Summary ---
Demographics + + + | Address | [address] | | | [place] [address] | + + + | Home Phone [...] Providers + +------+ + | Care Body Care Manager Name | Role | Phone | [...] MED CTR SLEEP | MD Raji [address] | | | | | [place] [address] | [address] [facility] | | | | | [place], [place] | [place] [address] | | | | | [address] | [phone] | | | | | [phone] | | | +--------+ + + + [...] | | | | | [place] [address] | | | | | | [phone] | | | | | | | | +--------+---------+ + + + | 12/20/ | Office | Otolaryngology | Ulysses eGnao MD | | | 2019 | Visit | | [address] | | | | | | [address] [place], | | | | | | [place] [address] | | | | | | [phone] | | | | | | | | +--------+---------+ + + + | 02/15/ | Office | Internal Medicine | Alanis, | | | 2019 | Visit | | MD Petrona | | | | | | [address] [place] | | | | | | [place] [address] | | | | | | [phone] | | | | | | | | +--------+---------+ + + + documented as of this encounter Visit Diagnoses Not on filedocumented in this encounter"
--- OUTSIDE RECORDS SUMMARY | ~2019-11-17 | XMS | Encounter Summary ---
Demographics + + + | Address | [address] | | | [place] [address] | + + + | Home Phone [...] Providers + +------+ + | Care Tour Narrator Name | Role | Phone | + [...] + | 07/17/ | Telephone | [facility] INTERNAL | Alanis, | Medical Problem | | 2017 | | MEDICINE [address] [place] [address] | MD [place]rona | | | | | [facility] | [address] [place] [address] | | | | | [place] [address] | [place] [address] | | | | | [phone] | [phone] | | | | | | | [...] | | | | | [place] [address] | | | | | | [phone] | | | | | | | | +--------+---------+ + + + | 12/20/ | Office | Otolaryngology | Ulysses Genao MD | | | 2019 | Visit | | [address] | | | | | | [address] [place], | | | | | | [place] [address] | | | | | | [phone] | | | | | | | | +--------+---------+ + + + | 02/15/ | Office | Internal Medicine | Alanis, | | | 2019 | Visit | | MD [place]ron[place] | | | | | | [address] [place] | | | | | | [place] [address] | | | | | | [phone] | | | | | | | | +--------+---------+ + + + documented as of this encounter Visit Diagnoses Not on filedocumented in this encounter"
--- OUTSIDE RECORDS SUMMARY | ~2019-11-17 | XMS | Encounter Summary ---
Demographics + + + | Address | [address] | | | [place] [address] | + + + | Home Phone [...] + +------+ + | Care Sales And Events Coordinator Name | Role | Phone | [...] | | | [facility] | [place], [place] | | | | | [address] | [address] | | | | | [address] | [phone] | | | | | Physician's | | | | | | Pavilion, 1st floor | | | | | | [place], [place] | | | | | | [address] | | | | | | [phone] | | | +--------+ + + + [...]
--- OUTSIDE RECORDS SUMMARY | ~2019-11-17 | XMS | Encounter Summary ---
Demographics + + + | Address | [address] | | | [place] [address] | + + + | Home Phone [...] Providers + +------+ + | Care Electrical Subcontractor Name | Role | Phone | + [...] [address] | | | | | | [place], [place] | | | | | | [address] | | | | | | [phone] | | | +--------+--------+ + + + [...]
--- OUTSIDE RECORDS SUMMARY | ~2019-11-17 | XMS | Encounter Summary ---
Demographics + + + | Address | [address] | | | [place] [address] | + + + | Home Phone [...] + + | 01/17/ | Office | [facility] INTERNAL | Alanis, | Surgical wound | | 2019 | Visit | MEDICINE [address] [place] [address] | MD Petrona | infection (Primary | | | | [address] [place] | [address] [facility] | Dx) | | | | [place] [address] | [place] [address] | | | | | [phone] | [phone] | | | | | | | [...] COPD (chronic obstructive pulmonary disease) ([facility]) Depression Diarrhea Dumping syndrome Fall at home Fatigue fracture of vertebra Fibromyalgia Full dentures GERD (gastroesophageal reflux disease) Glaucoma Hyperparathyroidism ([facility]) Hypothyroidism IBS (irritable bowel syndrome) Idiopathic scoliosis Leg edema Low back pain Lumbar postlaminectomy syndrome Lumbar radiculopathy primarily right 01/04/2015 Meniere syndrome Migraine with aura Migraines Muscle cramping Muscle spasm Myalgia Nausea Nonalcoholic hepatosteatosis Obesity Opioid dependence ([facility]) Orthostatic hypotension OLIVER (obstructive sleep apnea) Osteoarthritis, generalized Osteopenia Osteoporosis Palpitations Peripheral neuropathy Rheumatoid arthritis ([facility]) Right arm pain 01/04/2015 RLS (restless legs syndrome) S/P lumbar fusion 01/04/2015 Scoliosis Sleep apnea Spondylosis with myelopathy, lumbar region Stroke ([facility]) Syncope Tremor Type II or unspecified [...] Procedure: COLONOSCOPY; Surgeon: Luther Brito MD; Location: [facility] MEDICAL PROCEDURE UNIT DILATION AND CURETTAGE OF UTERUS ELBOW SURGERY FINGER TRIGGER RELEASE 2002 FINGER TRIGGER RELEASE 2009 GASTRIC BYPASS SURGERY 2004 HYSTERECTOMY 05/14/1980 JOINT REPLACEMENT Bilateral 2007 2007 KNEE ARTHROSCOPY 2005 LAPAROSCOPY 01/27/2015 LAPAROTOMY 2008 ROTATOR CUFF REPAIR 2004 SPINE SURGERY TONSILLECTOMY 1964 UPPER GASTROINTESTINAL ENDOSCOPY N/A 12/18/2017 Procedure: EGD; Surgeon: Luther Brito MD; Location: [facility] MEDICAL PROCEDURE UNIT CURRENT MEDICATIONS [...] mcg 1,000 mcg Intramuscular Q30 Days Morelia wilson-Russell Thapa MD 1,000 mcg at 11/15/18 0945 ALLERGIES Allergies Allergen Reactions Ensure Diarrhea Food Diarrhea Lactose Ealpqdngbj-Mwc-Pypi-Codeine Other (See Comments) Balance problems Codeine Sulfate Nausea Only Food Allergy Formula Diarrhea Ensure Levofloxacin Hives, Itching and Rash Butalbital Ropinirole Amitriptyline Hcl Other (See Comments) Confused and questionable for seizures Pephhhoxng-Qfjw-Wqiokejt Hives and Rash Cephalexin Hives Ciprofloxacin Hives [...] Note: Parts of this documentwere created using TownHog speech recognition software. As a r esult, [...] [address] | | | | | | [facility] [address] [facility] | | | | | | [place] [address] | | | | | | [phone] | | | | | | | | +--------+---------+ + + + | 12/20/ | Office | Otolaryngology | Ulysses Genao MD | | | 2019 | Visit | | [address] | | | | | | [address] [place] | | | | | | [place] [address] | | | | | | [phone] | | | | | | | | +--------+---------+ + + + | 02/15/ | Office | Internal Medicine | Alanis, | | | 2019 | Visit | | MD [place] | | | | | | [address] | | | | | | [place] [address] | | | | | | [phone] | | | | | | | | +--------+---------+ + + + documented as of this encounter Visit Diagnoses + + | Diagnosis | + + | Surgical wound infection - Primary Other postoperative infection | + + documented in this encounter
--- OUTSIDE RECORDS SUMMARY | ~2019-11-17 | XMS | Encounter Summary ---
Demographics + + + | Address | [address] | | | [place] [address] | + + + | Home Phone [...] Providers + +------+ + | Care Corporate Officer Name | Role | Phone | [...] Rd | | | | | | [place], [place] | | | | | | [address] | | | +--------+ + + + [...]
--- OUTSIDE RECORDS SUMMARY | ~2019-11-17 | XMS | Encounter Summary ---
Demographics + + + | Address | [address] | | | [place] [address] | + + + | Home Phone [...] Team Providers + +------+ + | Care Longwall Headgate Operator Name | Role | Phone | [...] + | 08/16/ | Refill | [facility] INTER[facility] | Alanis, | Medication Refill | | 2019 | | MEDICINE [address] | MD [place] | | | | | [facility] | [address] [place] [address] | | | | | [place] [address] | [place] [address] | | | | | [phone] | [phone] | | | | | | | [...] | | | | | [place] [address] | | | | | | [phone] | | | | | | | | +--------+---------+ + + + | 12/20/ | Office | Otolaryngology | Ulysses Genao MD | | | 2019 | Visit | | [address] | | | | | | [address] [place], | | | | | | [place] [address] | | | | | | [phone] | | | | | | | | +--------+---------+ + + + | 02/15/ | Office | Internal Medicine | Alanis, | | | 2019 | Visit | | MD [place]ron[place] | | | | | | [address] [place] [address] [address] | | | | | | [place] [address] | | | | | | [phone] | | | | | | | | +--------+---------+ + + + documented as of this encounter Visit Diagnoses Not on filedocumented in this encounter"
--- OUTSIDE RECORDS SUMMARY | ~2019-11-17 | XMS | Encounter Summary ---
Demographics + + + | Address | [address] | | | [place] [address] | + + + | Home Phone [...] Team Providers + +------+ + | Care Mud Jack Operator Name | Role | Phone | [...] + | 03/14/ | Refill | [facility] | Alanis, | Medication Refill | | 2018 | | MEDICINE [address] [place] [address] | MD [place]ron[place] | | | | | [facility] | [address] [place] [address] | | | | | [place] [address] | [place] [address] | | | | | [phone] | [phone] | | | | | | | [...] 12/20/ | Office | Audiology | Elisabet Munsno MS | | | 2019 | Visit | | [facility] [address] | | | | | [address] [place] | | | | | | [place] [address] | | | | | | [phone] | | | | | | | | +--------+---------+ + + + | 12/20/ | Office | Otolaryngology | Ulysses Genao MD | | | 2019 | Visit | | [address] | | | | | | [address] [place], | | | | | | [place] [address] | | | | | | [phone] | | | | | | | | +--------+---------+ + + + | 02/15/ | Office | Internal Medicine | Alanis, | | | 2019 | Visit | | MD [place]ron[place] | | | | | | [address] [place] [address] [address] | | | | | | [place] [address] | | | | | | [phone] | | | | | | | | +--------+---------+ + + + documented as of this encounter Visit Diagnoses Not on filedocumented in this encounter"
--- OUTSIDE RECORDS SUMMARY | ~2019-11-17 | XMS | Encounter Summary ---
Demographics + + + | Address | [address] | | | [place] [address] | + + + | Home Phone [...] Team Providers + +------+ + | Care Splitter Machine Name | Role | Phone | [...] + + | 08/23/ | Refill | [facility] | Alnais, | Medication Refill | | 2017 | | MEDICINE [address] [place] [address] | MD [place]ron[place] | | | | | [facility] | [address] [place] [address] | | | | | [place] [address] | [place] [address] | | | | | [phone] | [phone] | | | | | | | [...] | [facility] [address] | | | | | [address] [place] | | | | | | [place] [address] | | | | | | [phone] | | | | | | | | +--------+---------+ + + + | 12/20/ | Office | Otolaryngology | Ulysses Genao MD | | | 2019 | Visit | | [address] | | | | | | [address] [place], | | | | | | [place] [address] | | | | | | [phone] | | | | | | | | +--------+---------+ + + + | 02/15/ | Office | Internal Medicine | Alanis, | | | 2019 | Visit | | MD [place] | | | | | | [address] [place] [address] [address] | | | | | | [place] [address] | | | | | | [phone] | | | | | | | | +--------+---------+ + + + documented as of this encounter Visit Diagnoses Not on filedocumented in this encounter"
--- OUTSIDE RECORDS SUMMARY | ~2019-11-17 | XMS | Encounter Summary ---
Demographics + + + | Address | [address] | | | [place] [address] | + + + | Home Phone [...] Team Providers + +------+ + | Care Curtains And Draperies Salesperson Name | Role | Phone | [...] | | | Metabolism | bypass | [address] | [address] | | | | | Hypovitamino | [address], | [address] | | | | | [address] | [address] | [place], [place] | | | | | nutritional | [place] | [address] | | | | | deficiency | [address] | Phone: | | | | | Other | Phone: | [phone] | | | | | protein-jose manuel | [phone] | Fax: | | | | | nick | Fax: | [phone] | | | | | malnutrition | [phone] | | | | | | Weight | | | | | | | gain | | | | | | | Procedures | | | | | | | CONSULT TO | | | | | | | ENDO | | | | | | | [address] | | | | | | | [address] | | | +--------+--------+ + + + [...] | | | [facility] | [place], [place] | Dx); Hypothyroidism; | | | | [address] | [address] | Essential | | | | [address] | [phone] | hypertension 401.9; | | | | [facility] | | Secondary | | | | Physician's | | hyperparathyroidism, | | | | [facility] [place], | | non-renal (HCC) | | | | [place] [address] | | | | | | [phone] | | | +--------+---------+ + + + [...] 32.9 (L) RDW 11.5-15.0 % 12.4 PLATELET [id number] K/cu mm 205 IRON 30-160 ug/dL 114 [...] was told by [facility] COMPRESSOR ASSEMBLER that it is not an option, recommended pharmacologic weight mgmt. Gets primary care in [place], [place] (Maria Esther Cintron). Weight leveled out [...] replacement 08/2007 right knee Lumbar fusion 05/2008 L5-J6bnrvjj with bone spur removals Appendectomy Cholecystectomy section [...] Hives Mainly in the legs Clindamycin Codeine Zbigvih-Aikemcyofr-Lwt-Caff Balance problems Fioricet W/Codeine (Wfvzuwcdih-Ilqpplulag-Wxw-Cod) Keflex (Cephalexin) Morphine IM ( only in [facility]) made gut pain worse 08/27/06: Trial of [...] Ly Allred MD R-2, Internal Medicine Pager: [phone] documented in this enco unter Plan of [...] | | If you are | | [place] | | | | screening for diabetes: [...] + | [facility] | [address] | [place] [address] | | | [place] | | | [...] [facility] | [address] | [place] [address] | | | SERVICES, SPECIAL | [facility] [...] HOSPITAL LAB[facility] | [address] | [place] [address] | | | SERVICES, CORE | PARK [...] HOSPITAL LABORATORY | [address] | [place] [address] | | | SERVICES, SPECIAL | [facility] [...] by | | | | | | [employer],[address] | | | | | | Abdiaziz Morales, [facility],[place] | | | | | | [address] | | | | | | [phone].[employer]. | | | | | | [facility], Get [employer], | | | | | [...] [facility] | [address] | [place], [place] | | | [facility] | | [address] | | + + + + + [...] | + + + + + | [facility] | [address] | [place] [address] | | | SERVICES, SPECIAL | PARK [...] + | [facility] | [address] | [place] [address] | | | [place] | | | [...]
--- OUTSIDE RECORDS SUMMARY | ~2019-11-17 | XMS | Encounter Summary ---
Demographics + + + | Address | [address] | | | [place] [address] | + + + | Home Phone [...] Providers + +------+ + | Care Tailor Apprentice Name | Role | Phone | [...] + | 08/14/ | Telephone | [facility] | Alanis, | Lab Order | | 2017 | | MEDICINE [address] [place] [address] | MD [place] | | | | | [facility] | [address] [place] [address] | | | | | [place] [address] | [place] [address] | | | | | [phone] | [phone] | | | | | | | [...] | | | | | [place] [address] | | | | | | [phone] | | | | | | | | +--------+---------+ + + + | 12/20/ | Office | Otolaryngology | Ulysses Genao MD | | | 2020 | Visit | | [address] | | | | | | [address] [place], | | | | | | [place] [address] | | | | | | [phone] | | | | | | | | +--------+---------+ + + + | 02/15/ | Office | Internal Medicine | EmmyHeikePrudencioflip, | | | 2019 | Visit | | MD [place] | | | | | | [address] [place] | | | | | | [place] [address] | | | | | | [phone] | | | | | | | | +--------+---------+ + + + documented as of this encounter Visit Diagnoses + + | Diagnosis | + + | Preop examination - Primary Preoperative examination, unspecified | + + documented in this encounter"
--- OUTSIDE RECORDS SUMMARY | ~2019-11-17 | XMS | Encounter Summary ---
Demographics + + + | Address | [address] | | | [place] [address] | + + + | Home Phone [...] Team Providers + +------+ + | Care Uniform Attendant Name | Role | Phone | [...] | low back | Sulaiman-Iv[address]ny | [address] | | | | | pain without MD [address] | [place] | | | | | sciatica | [address] | [address] Phone: | | | | | | [place], | [phone] | | | | | | [place] | Fax: | | | | | | [address] | [phone] | | | | | | Phone: | | | | | | | [phone] | | | | | | | Fax: | | | | | | | [phone] | | +--------+ + + + + + Reason for Visit + + + | Reason | Comments | + + + | Medication Orders | | + + + Encounter Details +--------+ + + + + | Date | Type | Department | Care Team | Description | +--------+ + + + + | 07/15/ | Telephone | [facility] | Alanis, | Medication Orders | | 2018 | | MEDICINE [address] [place] [address] | MD Petrona | | | | | [facility] | [address] [place] [address] | | | | | [place] [address] | [place] [address] | | | | | [phone] | [phone] | | | | | | | [...] | | | | | [place] [address] | | | | | | [phone] | | | | | | | | +--------+---------+ + + + | 12/20/ | Office | Otolaryngology | Ulysses Genao MD | | | 2019 | Visit | | [address] [place] | | | | | | [address] [place], | | | | | | [place] [address] | | | | | | [phone] | | | | | | | | +--------+---------+ + + + | 02/15/ | Office | Internal Medicine | Alanis, | | | 2019 | Visit | | MD Petrona | | | | | | [address] | | | | | | [place] [address] | | | | | | [phone] | | | | | | | | +--------+---------+ + + + + + +--------+ + + | Name | Type | Priori | Associated Diagnoses | Order Schedule | | | | ty | | | + + +--------+ + + | * TAHIR NDIAYE | Outpatient | Routin | Chronic bilateral [...]
--- OUTSIDE RECORDS SUMMARY | ~2019-11-17 | XMS | Encounter Summary ---
Demographics + + + | Address | [address] | | | [place] [address] | + + + | Home Phone [...] Team Providers + +------+ + | Care Drywall Sander Name | Role | Phone | [...] | | | | [id number] Physician's | [place], [place] | | | | | [address] | [address] | | | | | [place], [place] | [phone] | | | | | [address] | | | | | | [phone] | | | +--------+ + + + [...]
--- OUTSIDE RECORDS SUMMARY | ~2019-11-17 | XMS | Encounter Summary ---
Demographics + + + | Address | [address] | | | [place] [address] | + + + | Home Phone [...] Providers + +------+ + | Care Timber Packer Name | Role | Phone | [...] + | 06/14/ | Refill | [facility] | Alanis, | Medication Refill | | 2018 | | MEDICINE [address] [place] [address] | MD Petrona | | | | | [facility] | [address] [place] [address] | | | | | [place] [address] | [place] [address] | | | | | [phone] | [phone] | | | | | | | [...] | | | | | [place] [address] | | | | | | [phone] | | | | | | | | +--------+---------+ + + + | 12/20/ | Office | Otolaryngology | Ulysses Genao MD | | | 2019 | Visit | | [address] [place] | | | | | | [address] [place], | | | | | | [place] [address] | | | | | | [phone] | | | | | | | | +--------+---------+ + + + | 02/15/ | Office | Internal Medicine | Alanis, | | | 2019 | Visit | | MD Petrona | | | | | | [address] [place] [address] [address] | | | | | | [place] [address] | | | | | | [phone] | | | | | | | | +--------+---------+ + + + documented as of this encounter Visit Diagnoses Not on filedocumented in this encounter"
--- OUTSIDE RECORDS SUMMARY | ~2019-11-17 | XMS | Encounter Summary ---
Demographics + + + | Address | [address] | | | [place] [address] | + + + | Home Phone [...] Providers + +------+ + | Care Coffee Supervisor Name | Role | Phone | [...] + | 09/04/ | Refill | [facility] | Alanis, | Medication Refill | | 2019 | | MEDICINE [address] | MD Petrona | | | | | [facility] | [address] [place] [address] | | | | | [place] [address] | [place] [address] | | | | | [phone] | [phone] | | | | | | | [...] | 12/20/ | Office | Audiology | Elisaebt Munson MS | | | 2019 | Visit | | [facility] [address] | | | | | | [address] [place] | | | | | | [place] [address] | | | | | | [phone] | | | | | | | | +--------+---------+ + + + | 12/20/ | Office | Otolaryngology | Ulysses Genao MD | | | 2019 | Visit | | [address] [place] | | | | | | [address] [place], | | | | | | [place] [address] | | | | | | [phone] | | | | | | | | +--------+---------+ + + + | 02/15/ | Office | Internal Medicine | Alanis, | | | 2019 | Visit | | MD Petrona | | | | | | [address] [place] [address] [address] | | | | | | [place] [address] | | | | | | [phone] | | | | | | | | +--------+---------+ + + + documented as of this encounter Visit Diagnoses Not on filedocumented in this encounter"
--- OUTSIDE RECORDS SUMMARY | ~2019-11-17 | XMS | Encounter Summary ---
Demographics + + + | Address | [address] | | | [place] [address] | + + + | Home Phone [...] Team Providers + +------+ + | Care Flat Drier Name | Role | Phone | + [...] + + | 02/17/ | Clinical | [facility] | Alanis, | Vitamin B12 | | 2017 | Support | MEDICINE [address] [place] [address] | MD Petrona | deficiency | | | | [facility] | [address] [place] [address] | | | | | [place] [address] | [place] [address] | | | | | [phone] | [phone] | | | | | | | [...] [address] | | | | | | [facility] | | | | | | [place] [address] | | | | | | [phone] | | | | | | | | +--------+---------+ + + + | 12/20/ | Office | Otolaryngology | Ulysses Genao MD | | | 2019 | Visit | | [address] | | | | | | [address] [place], | | | | | | [place] [address] | | | | | | [phone] | | | | | | | | +--------+---------+ + + + | 02/15/ | Office | Internal Medicine | Alanis, | | | 2019 | Visit | | MD Petrona | | | | | | [address] [place] | | | | | | [place] [address] | | | | | | [phone] | | | | | | | [...]
--- OUTSIDE RECORDS SUMMARY | ~2019-11-17 | XMS | Encounter Summary ---
Demographics + + + | Address | [address] | | | [place] [address] | + + + | Home Phone [...] Team Providers + +------+ + | Care Wide Piece Goods Inspector Name | Role | Phone | [...] | | | OFFICE VISIT | | [address] Phone: | | | | | REGULAR | | [phone] | | | | | | | Fax: | | | | | | | [phone] | +--------+--------+ + + + + Encounter Details +--------+---------+ + + + | Date | Type | Department | Care Team | Description | +--------+---------+ + + + | 12/30/ | Office | [facility] | Elisabet Munson MS | Subjective tinnitus | | 2018 | Visit | AUDIOLOGY AND | [facility] [address] | of left ear (Primary | | | | [facility] | [address] [place] | Dx) | | | | [address] | [place] [address] | | | | | [place] [address] [place] | [phone] | | | | | [place] [address] | | | | | | [phone] | | | +--------+---------+ + + + [...] | 12/20/ | Office | Audiology | JeimyCeasarMS rafa | | | 2020 | Visit | | [facility] [address] | | | | | | [facility] | | | | | | [place] [address] | | | | | | [phone] | | | | | | | | +--------+---------+ + + + | 12/20/ | Office | Otolaryngology | Ulysses Genao MD | | | 2019 | Visit | | [address] | | | | | | [address] [place], | | | | | | [place] [address] | | | | | | [phone] | | | | | | | | +--------+---------+ + + + | 02/15/ | Office | Internal Medicine | Alanis, | | | 2019 | Visit | | MD Petrona | | | | | | [address] [place] | | | | | | [place] [address] | | | | | | [phone] | | | | | | | [...]
--- OUTSIDE RECORDS SUMMARY | ~2019-11-17 | XMS | Encounter Summary ---
Demographics + + + | Address | [address] | | | [place] [address] | + + + | Home Phone [...] Team Providers + +------+ + | Care Polishing Machine Operator Name | Role | Phone [...] as of this encounter Progress Notes Interface, Electronic Security Specialist In - 12/11/2005 2:05 AM PDT [id number] GEOVANNI SKELTON [id number] Clinic Date: 11/27/2005 Clinic: Rheumatology Primary Care [...] 6 months. Caitlin Rivera M.S., F.N.P. / [id number] / [id number] / [id number] / [id number] cc: Pedrito Gutierrez M.D. [address] [place] [id number] Electronically signed by Caitlin Rivera 12-10-2005 09:27:21 AM documented i n this encounter Plan of Treatment Not on filedocumented as of this encounter Visit Diagnoses Not on filedocumented in this encounter"
--- OUTSIDE RECORDS SUMMARY | ~2019-11-17 | XMS | Encounter Summary ---
Demographics + + + | Address | [address] | | | [place] [address] | + + + | Home Phone [...] Providers + +------+ + | Care Side Gluer Name | Role | Phone | + [...] + + | 01/04/ | Telephone | [facility] | Ulysses Genao MD | Other | | 2018 | | OTOLARYNGOLOGY [address] | [address] [facility] | | | | | [address] [facility] [address] | [address] [place], | | | | | [place], [place] | [place] [address] | | | | | [address] | [phone] | | | | | [phone] | | | +--------+ + + + [...] | | 2019 | Visit | | [facility] [address] | | | | | | [address] [place] | | | | | | [place] [address] | | | | | | [phone] | | | | | | | | +--------+---------+ + + + | 12/20/ | Office | Otolaryngology | Ulysses Genao MD | | | 2019 | Visit | | [address] [place] | | | | | | [address] [place], | | | | | | [place] [address] | | | | | | [phone] | | | | | | | | +--------+---------+ + + + | 02/15/ | Office | Internal Medicine | Alanis, | | | 2019 | Visit | | MD Petrona | | | | | | [address] [place] | | | | | | [place] [address] | | | | | | [phone] | | | | | | | | +--------+---------+ + + + documented as of this encounter Visit Diagnoses Not on filedocumented in this encounter"
--- OUTSIDE RECORDS SUMMARY | ~2019-11-17 | XMS | Encounter Summary ---
Demographics + + + | Address | [address] | | | [place] [address] | + + + | Home Phone [...] Team Providers + +------+ + | Care Income Tax Adjuster Name | Role | Phone | [...] Pavilion | | | | | | [place], [place] | | | | | | [address] | | | | | | [phone] | | | +--------+ + + + [...]
--- OUTSIDE RECORDS SUMMARY | ~2019-11-17 | XMS | Encounter Summary ---
Demographics + + + | Address | [address] | | | [place] [address] | + + + | Home Phone [...] Providers + +------+ + | Care Applications Support Analyst Name | Role | Phone [...] + + | 02/18/ | Refill | [facility] | Alanis, | Results, Imaging | | 2017 | | MEDICINE [address] [place] [address] | MD Petrona | | | | | [facility] | [address] [place] [address] | | | | | [place] [address] | [place] [address] | | | | | [phone] | [phone] | | | | | | | [...] | | | | | [place] [address] | | | | | | [phone] | | | | | | | | +--------+---------+ + + + | 12/20/ | Office | Otolaryngology | Ulysses Genao MD | | | 2019 | Visit | | [address] [place] | | | | | | [address] [place], | | | | | | [place] [address] | | | | | | [phone] | | | | | | | | +--------+---------+ + + + | 02/15/ | Office | Internal Medicine | Alanis, | | | 2019 | Visit | | MD Petrona | | | | | | [address] [place] | | | | | | [place] [address] | | | | | | [phone] | | | | | | | | +--------+---------+ + + + documented as of this encounter Visit Diagnoses Not on filedocumented in this encounter"
--- OUTSIDE RECORDS SUMMARY | ~2019-11-17 | XMS | Encounter Summary ---
Demographics + + + | Address | [address] | | | [place] [address] | + + + | Home Phone [...] Providers + +------+ + | Care Coil Machine Supervisor Name | Role | Phone | [...]
--- OUTSIDE RECORDS SUMMARY | ~2019-11-17 | XMS | Encounter Summary ---
Demographics + + + | Address | [address] | | | [place] [address] | + + + | Home Phone [...] + +------+ + | Care Home Health Outreach Coordinator Name | Role | Phone | [...] as of this encounter Progress Notes Interface, Nsh Teacher In - 01/13/2005 9:03 AM PDT [id number] GEOVANNI Barnes Clinic Date: 01/02/2005 Clinic: Endocrinology [...] months. Beto Meeks M.D. PD / HS [id number] / [id number] / [id number] / [id number] cc: Chris Padgett M.D. documented i n this encounter Plan of Treatment Not on filedocumented as of this encounter Visit Diagnoses Not on filedocumented in this encounter"
--- OUTSIDE RECORDS SUMMARY | ~2019-11-17 | XMS | Encounter Summary ---
Demographics + + + | Address | [address] | | | [place] [address] | + + + | Home Phone [...] Team Providers + +------+ + | Care Representative Personal Service Name | Role | Phone | [...] | | [facility] [address] | DIRECTOR PUBLIC POLICY [address] | | | | | Sara Kovacs | , [address] | | | | | Mailcode: Center | [place], [place] | | | | | [facility] and | [address] | | | | | Healing, [address] | [phone] | | | | | [place], [place] | | | | | | [address] | | | | | | [phone] | | | +--------+ + + + [...]
--- OUTSIDE RECORDS SUMMARY | ~2019-11-17 | XMS | Encounter Summary ---
Demographics + + + | Address | [address] | | | [place] [address] | + + + | Home Phone [...] | | [facility] | [address] [facility] | | | | | [facility] | [address] [place], | | | | | [address] | [place] [address] | | | | | [address] | [phone] | | | | | Physician's | | | | | | Pavilion, 1st floor | | | | | | [place], [place] | | | | | | [address] | | | | | | [phone] | | | +--------+ + + + [...] | | + +---------+--------+ + + | HI DXA BONE | Imaging | Routin | [...]
--- OUTSIDE RECORDS SUMMARY | ~2019-11-17 | XMS | Encounter Summary ---
Demographics + + + | Address | [address] | | | [place] [address] | + + + | Home Phone [...] Team Providers + +------+ + | Care Sergeant Missile Crewman Name | Role | Phone | [...] + | 06/30/ | Refill | [facility] | Alanis, | Medication Refill | | 2017 | | MEDICINE [address] [place] [address] | MD Petrona | | | | | [facility] | [address] [place] [address] | | | | | [place] [address] | [place] [address] | | | | | [phone] | [phone] | | | | | | | [...] | | | | | [place] [address] | | | | | | [phone] | | | | | | | | +--------+---------+ + + + | 12/20/ | Office | Otolaryngology | Ulysses Genao MD | | | 2019 | Visit | | [address] [place] | | | | | | [address] [place], | | | | | | [place] [address] | | | | | | [phone] | | | | | | | | +--------+---------+ + + + | 02/15/ | Office | Internal Medicine | Alanis, | | | 2019 | Visit | | MD Petrona | | | | | | [address] | | | | | | [place] [address] | | | | | | [phone] | | | | | | | | +--------+---------+ + + + documented as of this encounter Visit Diagnoses + + | Diagnosis | + + | Bronchitis - Primary Bronchitis, not specified as acute or chronic | + + documented in this encounter"
--- OUTSIDE RECORDS SUMMARY | ~2019-11-17 | XMS | Encounter Summary ---
Demographics + + + | Address | [address] | | | [place] [address] | + + + | Home Phone [...] Team Providers + +------+ + | Care Meter Repairer Helper Name | Role | Phone | [...] + + | 08/26/ | Telephone | [facility] | Alanis, | Headache (Adult - | | 2018 | | MEDICINE [address] | MD Petrona | Recurrent Or Known | | | | [address] [place] | [address] [facility] | Dx Migraines) | | | | [place] [address] | [place] [address] | | | | | [phone] | [phone] | | | | | | | [...] | | | | | [place] [address] | | | | | | [phone] | | | | | | | | +--------+---------+ + + + | 12/20/ | Office | Otolaryngology | Ulysses Genao MD | | | 2019 | Visit | | [address] [place] | | | | | | [address] [place], | | | | | | [place] [address] | | | | | | [phone] | | | | | | | | +--------+---------+ + + + | 02/15/ | Office | Internal Medicine | Alanis, | | | 2019 | Visit | | MD Petrona | | | | | | [address] [place] [address] | | | | | | [place] [address] | | | | | | [phone] | | | | | | | [...]
--- OUTSIDE RECORDS SUMMARY | ~2019-11-17 | XMS | Encounter Summary ---
Demographics + + + | Address | [address] | | | [place] [address] | + + + | Home Phone [...] Team Providers + +------+ + | Care Emr Analyst Name | Role | Phone | [...] + + | 05/18/ | Refill | [facility] | Alanis, | Medication Refill | | 2016 | | MEDICINE [address] [place] [address] | MD Petrona | | | | | [facility] | [address] [place] [address] | | | | | [place] [address] | [place] [address] | | | | | [phone] | [phone] | | | | | | | [...] | | | | | [place] [address] | | | | | | [phone] | | | | | | | | +--------+---------+ + + + | 12/20/ | Office | Otolaryngology | Ulysses Genao MD | | | 2019 | Visit | | [address] [place] | | | | | | [address] [place], | | | | | | [place] [address] | | | | | | [phone] | | | | | | | | +--------+---------+ + + + | 02/15/ | Office | Internal Medicine | Alanis, | | | 2019 | Visit | | MD Petrona | | | | | | [address] [place] [address] [address] | | | | | | [place] [address] | | | | | | [phone] | | | | | | | | +--------+---------+ + + + documented as of this encounter Visit Diagnoses Not on filedocumented in this encounter"
--- OUTSIDE RECORDS SUMMARY | ~2019-11-17 | XMS | Encounter Summary ---
Demographics + + + | Address | [address] | | | [place] [address] | + + + | Home Phone [...] + +------+ + | Care Clinical Informatics Specialist Name | Role | Phone [...] | | | | Mailcode: L223A | [place], [place] | | | | | [facility] | [address] | | | | | [address] [place], [place] | [phone] | | | | | [address] | | | | | | [phone] | | | +--------+ + + + [...]
--- OUTSIDE RECORDS SUMMARY | ~2019-11-17 | XMS | Encounter Summary ---
Demographics + + + | Address | [address] | | | [place] [address] | + + + | Home Phone [...] Providers + +------+ + | Care Coal Chemist Name | Role | Phone | [...] + + | 03/10/ | Telephone | [facility] | Alanis, | Grief/ Loss | | 2018 | | MEDICINE [address] [place] [address] | MD [place]rona | | | | | [facility] | [address] [place] [address] | | | | | [place] [address] | [place] [address] | | | | | [phone] | [phone] | | | | | | | [...] | | | | | [place] [address] | | | | | | [phone] | | | | | | | | +--------+---------+ + + + | 12/20/ | Office | Otolaryngology | Ulysses Genao MD | | | 2019 | Visit | | [address] [place] | | | | | | [address] [place], | | | | | | [place] [address] | | | | | | [phone] | | | | | | | | +--------+---------+ + + + | 02/15/ | Office | Internal Medicine | Alanis, | | | 2019 | Visit | | MD Petorna | | | | | | [address] | | | | | | [place] [address] | | | | | | [phone] | | | | | | | | +--------+---------+ + + + documented as of this encounter Visit Diagnoses Not on filedocumented in this encounter"
--- OUTSIDE RECORDS SUMMARY | ~2019-11-17 | XMS | Encounter Summary ---
Demographics + + + | Address | [address] | | | [place] [address] | + + + | Home Phone [...] Team Providers + +------+ + | Care Wage Analyst Name | Role | Phone | [...] + + | 02/03/ | Refill | [facility] | Alanis, | Medication Refill | | 2017 | | MEDICINE [address] [place] [address] | MD Petrona | | | | | [facility] | [address] [place] [address] | | | | | [place] [address] | [place] [address] | | | | | [phone] | [phone] | | | | | | | [...] | | | | | [place] [address] | | | | | | [phone] | | | | | | | | +--------+---------+ + + + | 12/20/ | Office | Otolaryngology | Ulysses Genao MD | | | 2019 | Visit | | [address] [place] | | | | | | [address] [place], | | | | | | [place] [address] | | | | | | [phone] | | | | | | | | +--------+---------+ + + + | 02/15/ | Office | Internal Medicine | Alanis, | | | 2019 | Visit | | MD Petrona | | | | | | [address] [place] [address] [address] | | | | | | [place] [address] | | | | | | [phone] | | | | | | | | +--------+---------+ + + + documented as of this encounter Visit Diagnoses Not on filedocumented in this encounter"
--- OUTSIDE RECORDS SUMMARY | ~2019-11-17 | XMS | Encounter Summary ---
Demographics + + + | Address | [address] | | | [place] [address] | + + + | Home Phone [...] Team Providers + +------+ + | Care Shuttle Truck Driver Name | Role | Phone [...] + | 09/14/ | Telephone | [facility] | Alanis, | Referral | | 2018 | | MEDICINE [address] [place] [address] | MD Petrona | | | | | [facility] | [address] [place] [address] | | | | | [place] [address] | [place] [address] | | | | | [phone] | [phone] | | | | | | | [...] | | | | | [place] [address] | | | | | | [phone] | | | | | | | | +--------+---------+ + + + | 12/20/ | Office | Otolaryngology | Ulysses Genao MD | | | 2019 | Visit | | [address] | | | | | | [address] [place], | | | | | | [place] [address] | | | | | | [phone] | | | | | | | | +--------+---------+ + + + | 02/15/ | Office | Internal Medicine | Alanis, | | | 2019 | Visit | | MD [place] | | | | | | [address] | | | | | | [place] [address] | | | | | | [phone] | | | | | | | | +--------+---------+ + + + documented as of this encounter Visit Diagnoses Not on filedocumented in this encounter"
--- OUTSIDE RECORDS SUMMARY | ~2019-11-17 | XMS | Encounter Summary ---
Demographics + + + | Address | [address] | | | [place] [address] | + + + | Home Phone [...] Team Providers + +------+ + | Care Company Secretary Name | Role | Phone | [...] Rd | | | | | | [place], [place] | | | | | | [address] | | | +--------+ + + + [...] as of this encounter Progress Notes Interface, Imaging Technician In - 12/06/2006 2:32 AM PDT [id number] GEOVANNI Barnes [id number] Clinic Date: 10/29/2006 Clinic: Endocrinology Subjective: Belinda [...] been working with the [facility] at [facility] to optimize her pain management. Fortunately, the [...] patch 25 mcg for 72 hours. 2. [place]/acetaminophen 10 mg/325 mg, 1 every 6 hours [...] months. Beto Meeks M.D. PD / HS [id number] / [id number] / [id number] / [id number] cc: Pedrito Gutierrez M.D. [address] [place] [address] Chris Padgett M.D. Electronically signed by Beto Meeks 12-05-2006 05:17:05 AM documented in this encounter Plan of Treatment Not on filedocumented as of this encounter Visit Diagnoses Not on filedocumented in this encounter"
--- OUTSIDE RECORDS SUMMARY | ~2019-11-17 | XMS | Encounter Summary ---
Demographics + + + | Address | [address] | | | [place] [address] | + + + | Home Phone [...] Team Providers + +------+ + | Care Brake Assembler Name | Role | Phone | [...] + + | 01/05/ | Telephone | [facility] | Luther Brito MD | Results | | 2018 | | GASTROENTEROLOGY | [address] [facility] | | | | | [address] [facility] | [place], [place] | | | | | [address] [place], [place] | [address] | | | | | [address] | [phone] | | | | | [phone] | | | +--------+ + + + [...] | | | | | [place] [address] | | | | | | [phone] | | | | | | | | +--------+---------+ + + + | 12/20/ | Office | Otolaryngology | Ulysses Genao MD | | | 2019 | Visit | | [address] | | | | | | [address] [place], | | | | | | [place] [address] | | | | | | [phone] | | | | | | | | +--------+---------+ + + + | 02/15/ | Office | Internal Medicine | Alanis, | | | 2019 | Visit | | MD Petrona | | | | | | [address] [place] | | | | | | [place] [address] | | | | | | [phone] | | | | | | | | +--------+---------+ + + + documented as of this encounter Visit Diagnoses Not on filedocumented in this encounter"
--- OUTSIDE RECORDS SUMMARY | ~2019-11-17 | XMS | Encounter Summary ---
Demographics + + + | Address | [address] | | | [place] [address] | + + + | Home Phone [...] Providers + +------+ + | Care Non Garment Sewing Machine Operator Name | Role | [...] as of this encounter Discharge Summaries Interface, Wafer Fabrication Technician In - 08/30/2005 2:07 AM PST [id number] GEOVANNI Barnes Admission Date: 07/24/2005 Discharge Date: [...] for an appointment. Joanna Ritchie M.D. / [id number] / [id number] / [id number] / Electronically signed by Chris Padgett 08-29-2005 03:28:23 PM documented i n this encounter Plan of Treatment Not on filedocumented as of this encounter Visit Diagnoses Not on filedocumented in this encounter"
--- OUTSIDE RECORDS SUMMARY | ~2019-11-17 | XMS | Encounter Summary ---
Demographics + + + | Address | [address] | | | [place] [address] | + + + | Home Phone [...] Providers + +------+ + | Care Band Booker Name | Role | Phone | + [...] | | | | | hemorrhoid | [place], [place] | [address] [facility] | | | | | Rectal pain | [address] | [facility] | | | | | Procedures | | Rd [place], | | | | | CONSULT TO | | [place] | | | | | COLORECTAL | | [address] | | | | | SURGERY | | Phone: | | | | | | | [phone] | | | | | | | Fax: | | | | | | | [phone] | +--------+--------+ + + + + Encounter Details +--------+ + + + + | Date | Type | Department | Care Team | Description | +--------+ + + + + | 08/10/ | Shoe Singer | Dig[facility]ive [facility] | Nuris Cardenas, ANP | Internal Hemorrhoid; | | 2008 | | [place] [address] [address] | | Rectal Pain | | | | [address] | | | | | | Mailcode: [id number] | | | | | | [facility] | | | | | | [place], [place] | | | | | | [address] | | | | | | [phone] | | | +--------+ + + + [...]
--- OUTSIDE RECORDS SUMMARY | ~2019-11-17 | XMS | Encounter Summary ---
Demographics + + + | Address | [address] | | | [place] [address] | + + + | Home Phone [...] Team Providers + +------+ + | Care United States Marshal Name | Role | Phone | + [...] + + | 06/09/ | Telephone | [facility] INTER[facility] | Alanis, | Safety issue | | 2019 | | MEDICINE [address] [place] [address] | MD Petrona | | | | | [facility] | [address] [place] [address] | | | | | [place] [address] | [place] [address] | | | | | [phone] | [phone] | | | | | | | [...] | | | | | [place] [address] | | | | | | [phone] | | | | | | | | +--------+---------+ + + + | 12/20/ | Office | Otolaryngology | Ulysses Genao MD | | | 2019 | Visit | | [address] | | | | | | [address] [place], | | | | | | [place] [address] | | | | | | [phone] | | | | | | | | +--------+---------+ + + + | 02/15/ | Office | Internal Medicine | Alanis, | | | 2019 | Visit | | MD Petrona | | | | | | [address] | | | | | | [place] [address] | | | | | | [phone] | | | | | | | | +--------+---------+ + + + documented as of this encounter Visit Diagnoses Not on filedocumented in this encounter"
--- OUTSIDE RECORDS SUMMARY | ~2019-11-17 | XMS | Encounter Summary ---
Demographics + + + | Address | [address] | | | [place] [address] | + + + | Home Phone [...] + +------+ + | Care Production Control Pegboard Clerk Name | Role | Phone | [...] | | | [facility] | [place], [place] | | | | | [address] | [address] | | | | | [address] | [phone] | | | | | Physician's | | | | | | Pavilion, 1st floor | | | | | | [place], [place] | | | | | | [address] | | | | | | [phone] | | | +--------+ + + + [...]
--- OUTSIDE RECORDS SUMMARY | ~2019-11-17 | XMS | Encounter Summary ---
Demographics + + + | Address | [address] | | | [place] [address] | + + + | Home Phone [...] Team Providers + +------+ + | Care Collections Clerk Name | Role | Phone | [...] [address] | | | | | [place], [place] | [place] | | | | | [address] | [address] | | | | | [phone] | [phone] | | | | | | | [...]
--- OUTSIDE RECORDS SUMMARY | ~2019-11-17 | XMS | Encounter Summary ---
Demographics + + + | Address | [address] | | | [place] [address] | + + + | Home Phone [...] Team Providers + +------+ + | Care Doughmaker Name | Role | Phone | + [...] | and counseling | | | | [facility] | [place], [place] | (08/28/08 Lab | | | | and Healing, | [address] | results) | | | | [place] [address] [facility] | [phone] | | | | | [place], [place] | | | | | | [address] | | | | | | [phone] | | | +--------+ + + + [...]
--- OUTSIDE RECORDS SUMMARY | ~2019-11-17 | XMS | Encounter Summary ---
Demographics + + + | Address | [address] | | | [place] [address] | + + + | Home Phone [...] Providers + +------+ + | Care Shop Service Technician Name | Role | Phone | + +------+ + | Sulaiman Carrera MD | PCP | | + +------+ + Encounter Details +--------+ + + + + | Date | Type | Department | Care Team | Description | +--------+ + + + + | 08/26/ | Ancillary | Registration [id number] | | | | 2006 | Registratio | [address] | | | | | n | [place] Mailcode: [id number] | | | | | | [place], [place] | | | | | | [address] | | | | | | [phone] | | | +--------+ + + + [...]
--- OUTSIDE RECORDS SUMMARY | ~2019-11-17 | XMS | Encounter Summary ---
Demographics + + + | Address | [address] | | | [place] [address] | + + + | Home Phone [...] Team Providers + +------+ + | Care Dust Mixer Name | Role | Phone | [...] + + | 01/25/ | Telephone | [facility] INTER[facility] | Alanis, | Medical Problem | | 2017 | | MEDICINE [address] [place] [address] | MD Petrona | | | | | [facility] | [address] [place] [address] | | | | | [place] [address] | [place] [address] | | | | | [phone] | [phone] | | | | | | | [...] 2019 | Visit | | [facility] [address] | | | | | [address] [place] [address] [place] | | | | | | [place] [address] | | | | | | [phone] | | | | | | | | +--------+---------+ + + + | 12/20/ | Office | Otolaryngology | Ulysses Genao MD | | | 2019 | Visit | | [address] | | | | | | [address] [place], | | | | | | [place] [address] | | | | | | [phone] | | | | | | | | +--------+---------+ + + + | 02/15/ | Office | Internal Medicine | Alanis, | | | 2019 | Visit | | MD [place] | | | | | | [address] | | | | | | [place] [address] | | | | | | [phone] | | | | | | | | +--------+---------+ + + + documented as of this encounter Visit Diagnoses Not on filedocumented in this encounter"
--- OUTSIDE RECORDS SUMMARY | ~2019-11-17 | XMS | Encounter Summary ---
Demographics + + + | Address | [address] | | | [place] [address] | + + + | Home Phone [...] Providers + +------+ + | Care Career Services Representative Name | Role | Phone | [...] | 2006 | TRANSCRIPTI | [facility] | [address] [facility] | QUESTIONNAIRE | | | ON | for Health and | [facility], [place] | | | | | Healing [address] | [address] | | | | | [place] Mailcode: | [phone] | | | | | [facility] | | | | | | Health and Healing, | | | | | | [facility] | | | | | | [place], [place] | | | | | | [address] | | | | | | [phone] | | | +--------+ + + + [...]
--- OUTSIDE RECORDS SUMMARY | ~2019-11-17 | XMS | Encounter Summary ---
Demographics + + + | Address | [address] | | | [place] [address] | + + + | Home Phone [...] + +------+ + | Care Optical Instrument Assembly Supervisor Name | Role | [...] | Pain | Diagnoses | Emmy | Bi Application Developer Chh1 | | | | Management | [...] | | | | | [facility] | [address] | Building | | | | | disease, | Phone: | [address] | | | | | bilateral | [phone] | [place], [place] | | | | | Rheumatoid | Fax: | [address] | | | | | arthritis, | [phone] | Phone: | | | | | unspecified | | [phone] | | | | | | | Fax: | | | | | Postlaminect | | [phone] | | | | | toya | [...] + + | 02/05/ | Office | [facility] Comprehensive | Shalonda Garcia, | Post laminectomy | | 2017 | Visit | Pain Center at | PRINT SHOP CHIEF CLERK [address] | syndrome (Primary | | | | [facility] | [place], [place] | Dx); Intractable | | | | [address] | [address] | chronic migraine | | | | Mailcode: [id number] | [phone] | without aura and | | | | [place] [facility] | | with status | | | | and Healing, | | migrainosus; | | | | | | Fibromyalgia | | | | Floor [place], [place] | | | | | | [address] | | | | | | [phone] | | | +--------+---------+ + + + [...] Discuss with your PCP, a referral to [facility] for discussion regarding spinal cord stimulator Shalonda Mustafa DNP, PRINT SHOP CHIEF CLERK-C Adult Pain Service /Com[facility] [place] [address] documented in this encounter Progress Notes Amie Jing - 02/05/2017 1:35 PM PDT Date: 02/05/2017 was referred for pain management consultation by Sulaiman Whitlock MD [address] [place] [address] Reason for consult: cervical radiculopathy, low back [...] by her primary care pr magdy in [facility]. This provider is currently in the process of re-opening a new clinic and may be available to see patients next month. She reports that this provider d oes not wish to continue prescribing her pain medication and has instructed her to find anot her provided to take over her pain prescriptions. She was previously a patient at a pain cli brigida in [facility], however her insurance changed and she no longer has coverage at this clinic. 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 She feels she is at the point where is not able to determine which medications are hel pful in improving her pain. She endorses incontinence symptoms. She reports there are "days I just want to " because her pain is so bad. 's treatment for this pain complaint has included: MEDICATIONS: - Gabapentin - Sidney - Butran - Cymbalta - Fentanyl Patches NON-MEDICATION THERAPIES: - Physical Therapy - Exercise - Heat/Ice - Pool Therapy - Brace/Support - TENS INTERVENTIONS: - Spinal surgery x3, Laminectomy unknown level - Epidural Steroid Injections - Trigger Point Injections lives in a single family home in [place], [place]. She is not currently working , she receives disability. As a result of her pain, notes multiple changes in her life, including limiting her ability to perform routine tasks. 's goals from today's appointment include: consultation only (advice only to you and your primary care physician), counseling, drug treatment, help in coping with the pain a nd stress management. RESPIRATORY MEDICINE PHYSICIAN Brief Pain Inventory: (ten= worst possible pain [...] Colorectal polyps COPD (chronic obstructive pulmonary disease) ([facility]) CVA (cerebral vascular accident) ([facility]) Fibromyalgia 07/25/2008 Craniocervical junction appears stenotic in cervical extension. Headache HTN (hypertension) Hypothyroidism 11/11/2006 IBS (irritable bowel syndrome) Internal hemorrhoid Kidney stone Major depressive disorder, recurrent episode, moderate ([facility]) 07/31/2006 Metabolic syndrome X 250.80 Metabolic syndrome X 250.80 Optic nerve hemorrhage left eye Other general symptoms Pneumonia PUD (peptic ulcer disease) RA (rheumatoid arthritis) ([facility]) Radiculitis, lumbosacral 03/03/2008 Reduced vision Scoliosis Sleep apnea Spondylosis with myelopathy, lumbar region 07/02/2006 Vertebral fracture T7,8,9 Xray T spine 2003 Past Surgical History Procedure Laterality Date Salpingo-oophorectomy Colonoscopy 03/2006 Tonsillectomy Pr d&c after delivery Pr inject trigger point, 1 or 2 Knee replacement 02/2007 Left knee Knee replacement 08/2007 right knee Lumbar fusion 05/2008, '11 & '12 L5-R2mwncas with bone spur removals Appendectomy Cholecystectomy section [...] Hives Mainly in the legs Clindamycin Codeine Zvxzuou-Uuytmaqbxz-Bjp-Caff Balance problems Fioricet W/Codeine [Qxaegzlivs-Hstvljavyt-Nqj-Cod] Keflex [Cephalexin] Ketorolac Unknown Morphine IM ( only in [facility]) made gut pain worse [...] and summary of old medical records (source: [employer]), as summarized in the body of the [...] by her primary care pr magdy in [facility]. She reports that this provider does [...] Whitlock MD may consider a referral to [facility] for discu ssion regarding spinal cord stimulator -No follow up needed at this time 02/05/2017: I, Kathleen Riley am functioning as a medical massage therapist for MEGAN Dutta DNP I have reviewed and verified the above scribed note of my visit with this patient as record ed by Kathleen Riley. Shalonda Mustafa DNP, FNP-C Adult Pain Service /[facility] [address] [place] [address] Maris Costa MA - 02/05/2017 1:35 PM [...]
--- OUTSIDE RECORDS SUMMARY | ~2019-11-17 | XMS | Encounter Summary ---
Demographics + + + | Address | [address] | | | [place] [address] | + + + | Home Phone [...] Providers + +------+ + | Care Digital Marketing Specialist Name | Role | Phone [...] + + | 05/05/ | Telephone | [facility] | Emmy-Kamlesh, | Incontinence | | 2018 | | MEDICINE [address] [place] [address] | MD Petrona | Supplies | | | | [facility] | [address] [place] [address] | | | | | [place] [address] | [place] [address] | | | | | [phone] | [phone] | | | | | | | [...] | | | | | [place] [address] | | | | | | [phone] | | | | | | | | +--------+---------+ + + + | 12/20/ | Office | Otolaryngology | Ulysses Genao MD | | | 2019 | Visit | | [address] | | | | | | [address] [place], | | | | | | [place] [address] | | | | | | [phone] | | | | | | | | +--------+---------+ + + + | 02/15/ | Office | Internal Medicine | Alanis, | | | 2019 | Visit | | MD Petrona | | | | | | [address] | | | | | | [place] [address] | | | | | | [phone] | | | | | | | [...]
--- OUTSIDE RECORDS SUMMARY | ~2019-11-17 | XMS | Encounter Summary ---
Demographics + + + | Address | [address] | | | [place] [address] | + + + | Home Phone [...] Team Providers + +------+ + | Care Clock And Watch Assembler Name | Role | Phone | [...] + + | 05/28/ | Telephone | [facility] | Alanis, | Pain Management | | 2016 | | MEDICINE [address] [place] [address] | MD Petrona | | | | | [facility] | [address] [place] [address] | | | | | [place] [address] | [place] [address] | | | | | [phone] | [phone] | | | | | | | [...] | | | | | [place] [address] | | | | | | [phone] | | | | | | | | +--------+---------+ + + + | 12/20/ | Office | Otolaryngology | Ulysses Genao MD | | | 2019 | Visit | | [address] | | | | | | [address] [place], | | | | | | [place] [address] | | | | | | [phone] | | | | | | | | +--------+---------+ + + + | 02/15/ | Office | Internal Medicine | Alanis, | | | 2019 | Visit | | MD Petrona | | | | | | [address] [place] | | | | | | [place] [address] | | | | | | [phone] | | | | | | | | +--------+---------+ + + + documented as of this encounter Visit Diagnoses Not on filedocumented in this encounter"
--- OUTSIDE RECORDS SUMMARY | ~2019-11-17 | XMS | Encounter Summary ---
Demographics + + + | Address | [address] | | | [place] [address] | + + + | Home Phone [...] Providers + +------+ + | Care Program Support Specialist Name | Role | Phone [...] + + | 03/15/ | Telephone | [facility] INTER[facility] | Alanis, | Appointment | | 2018 | | MEDICINE [address] [place] [address] | MD Petrona | | | | | [facility] | [address] [place] [address] | | | | | [place] [address] | [place] [address] | | | | | [phone] | [phone] | | | | | | | [...] | | | | | [place] [address] | | | | | | [phone] | | | | | | | | +--------+---------+ + + + | 12/20/ | Office | Otolaryngology | Ulysses Genao MD | | | 2020 | Visit | | [address] | | | | | | [address] [place], | | | | | | [place] [address] | | | | | | [phone] | | | | | | | | +--------+---------+ + + + | 02/15/ | Office | Internal Medicine | Alanis, | | | 2019 | Visit | | MD Petrona | | | | | | [address] | | | | | | [place] [address] | | | | | | [phone] | | | | | | | | +--------+---------+ + + + documented as of this encounter Visit Diagnoses Not on filedocumented in this encounter"
--- OUTSIDE RECORDS SUMMARY | ~2019-11-17 | XMS | Encounter Summary ---
Demographics + + + | Address | [address] | | | [place] [address] | + + + | Home Phone [...] Providers + +------+ + | Care Sales Technician Name | Role | Phone | [...] | | | [facility] | [place], [place] | | | | | [address] | [address] | | | | | [address] | [phone] | | | | | [facility] | | | | | | Physician's | | | | | | Pavilion [place], | | | | | | [place] [address] | | | | | | [phone] | | | +--------+ + + + [...]
--- OUTSIDE RECORDS SUMMARY | ~2019-11-17 | XMS | Encounter Summary ---
Demographics + + + | Address | [address] | | | [place] [address] | + + + | Home Phone [...] + +------+ + | Care Golf Course Keeper Name | Role | Phone | [...] | 2006 | Visit | [facility] | MD Darrion,PhD [address] | Deconditioning; | | | | for Health and | [address] | Physical | | | | Healing [address] | [place], [place] | Deconditioning | | | | Ave Mailcode: | [address] | | | | | [address] [facility] | [phone] | | | | | Health and Healing, | | | | | | [facility] | | | | | | Floor [place], [place] | | | | | | [address] | | | | | | [phone] | | | +--------+---------+ + + + [...] and neurology assessment. Angel Morales M.D., Ph.D. Bumboater, Surgical [facility] Department of Orthopedics [email or web address] documented in this encou nter Plan of Treatment Not on filedocumented as of this encounter Visit Diagnoses + + | Diagnosis | + + | Muscular deconditioning Muscular wasting and disuse atrophy, not elsewhere classified | + + | Physical deconditioning Muscular wasting and disuse atrophy, not elsewhere classified | + + documented in this encounter"
--- OUTSIDE RECORDS SUMMARY | ~2019-11-17 | XMS | Encounter Summary ---
Demographics + + + | Address | [address] | | | [place] [address] | + + + | Home Phone [...] Team Providers + +------+ + | Care Sole Ruffer Name | Role | Phone | + [...] + | 10/08/ | Refill | Kraig Tunrer | Beto Meeks MD | Refill Request | | 2009 | | [facility] | [address] [place] | | | | | [facility] | [place], [place] | | | | | [address] | [address] | | | | | [address] | [phone] | | | | | [facility] | | | | | | Physician's | | | | | | Pavilion [place], | | | | | | [place] [address] | | | | | | [phone] | | | +--------+--------+ + + + [...]
--- OUTSIDE RECORDS SUMMARY | ~2019-11-17 | XMS | Encounter Summary ---
Demographics + + + | Address | [address] | | | [place] [address] | + + + | Home Phone [...] Providers + +------+ + | Care Loss Mitigation Specialist Name | Role | Phone | + +------+ + | Pedrito Gutierrez MD | PCP | | + +------+ + Encounter Details +--------+ + + + + | Date | Type | Department | Care Team | Description | +--------+ + + + + | 12/26/ | Telephone | [facility] | Lukasz Ogden, | | | 2007 | | Pain Center at | PhD [address] | | | | | [facility] | [place], [place] | | | | | [address] | [address] | | | | | Mailcode: [id number] | [phone] | | | | | [facility] | | | | | | and [place], | | | | | | Building | | | | | | [place], [place] | | | | | | [address] | | | | | | [phone] | | | +--------+ + + + [...]
--- OUTSIDE RECORDS SUMMARY | ~2019-11-17 | XMS | Encounter Summary ---
Demographics + + + | Address | [address] | | | [place] [address] | + + + | Home Phone [...] | | | | | | | [address]/KPV10 | | | | | | | [facility] | | | | | | | [facility] | | | | | | | [place], [place] | | | | | | | [address] | | | | | | | Phone: | | | | | | | [phone] | | | | | | | Fax: | | | | | | | [phone] | +--------+--------+ + + + + Encounter Details +--------+ + + + + | Date | Type | Department | Care Team | Description | +--------+ + + + + | 02/22/ | Hospital | [facility] [address] | Hai Hoyos, | | | 2008 | Encounter | [address] | | | | | | [address] | | | | | | [place], | | | | | | [place] [address] | | | | | | [phone] | | | +--------+ + + + [...] Brief Hospital Course: Patient was admitted to [facility] short stay surgery. Patient was taken [...] business hours at or page the orthopedist rn radiation after regular business hours at [phone]. If you have any of the following: [...] at . Follow Up Tests: (Tests at [facility] must be entered into [email or web address]) none Condition On Discharge: stable Vital Signs [...] Brief Hospital Course: Patient was admitted to [facility] short stay surgery. Patient was taken [...] business hours at or page the orthopedist rn radiation after regular business hours at [phone]. If you have any of the following: [...] at . Follow Up Tests: (Tests at [facility] must be entered into Epic) none [...] + + | [facility] | [address] | [place] [address] | | | PATHOLOGY | [...] [facility] | [address] | [place] [address] | | | PATHOLOGY | [address] [...] | | | | | performed at [facility] | | | | | | St. [...] [facility] | [address] | [place] [address] | | | PATHOLOGY | [address] [...] [facility] | [address] | [place] [address] | | | PATHOLOGY | [address] [...] | | | | | performed at [facility] | | | | | | St. [...] + + | [facility] | [address] | [place] [address] | | | PATHOLOGY | [address] [...] [facility] | [address] | [place] [address] | | | PATHOLOGY | [address] [...] Lab) | | | | | | [facility] | | | | | | [address] [place] | | | | | [address] | | | | | | [place] [address] | | | | + + + + + + + + | Specimen | + + | | + + + + + + + | Performing | Address | City/State/Zipcode | Phone Number | | Organization | | | | + + + + + | [facility] | [address] | [place] [address] | | | PATHOLOGY | [address] [...] Performed At | + + + | [id number] | | | [id number] | | | GEOVANNI Barnes [id number] | | | Date: 02/22/2009 Attending Surgeon: | | | Hai Hoyos MD Carpentry Foreman(s): | | | Shantel Whipple Preoperative | | | Diagnosis(es): Left symptomatic scapula lesion. Postoperative | | | Diagnosis(es): Left symptomatic scapula lesion. Procedures | | | Performed: 1. Curettage and bone grafting of the left scapular | | | lesion. 2. Open biopsy, left scapular lesion. | | | Donna Clancy served as my office assistant because no other qualified | | [...] | aforementioned. MD ARTIS Wei / SHARIF [id number] / | | | [id number] / [id number] / | | + + + + + | Procedure Note | + + | Hai Hoyos MD - 02/22/2009 12:00 AM PDT [id number] | | [id number] [facility] | | [id number] Date: 02/22/2009 Attending Surgeon: Hai | | MD Romain Carpentry Foreman(s): Raj Whipple. Preoperative | | Diagnosis(es):Left symptomatic scapula lesion. Postoperative Diagnosis(es):Left | | symptomatic scapula lesion. Procedures Performed:1. Curettage and bone grafting of | | the left scapular lesion.2. Open biopsy, left scapular lesion. Donna Clancy | | served as my office assistant because no other qualified help wasavailable. [...] plan is as aforementioned. CHARU Wei / [id number] / [id number] / [id number] /D: | | 02/22/2009T: 02/22/2009 | | [...] |Hai Hoyos MD | |ZA / | |[id number] / [id number] / [id number] / | | | | | | [...] | [facility] DEPARTMENT OF | [address] | [place] [address] | | | PATHOLOGY | [address] | | | + + + + + | [facility] DEPARTMENT [facility] | [facility] | [place] [address] | | | PATHOLOGY | [address] [...]
--- OUTSIDE RECORDS SUMMARY | ~2019-11-17 | XMS | Encounter Summary ---
Demographics + + + | Address | [address] | | | [place] [address] | + + + | Home Phone [...] Providers + +------+ + | Care Emergency Department Rn Name | Role | Phone | [...] + + | 10/11/ | Telephone | [facility] | Alanis, | LABS | | 2019 | | MEDICINE [address] [place] [address] | MD Petrona | | | | | [facility] | [address] [place] [address] | | | | | [place] [address] | [place] [address] | | | | | [phone] | [phone] | | | | | | | [...] | | | | | [place] [address] | | | | | | [phone] | | | | | | | | +--------+---------+ + + + | 12/20/ | Office | Otolaryngology | Ulysses Genao MD | | | 2019 | Visit | | [address] | | | | | | [address] [place], | | | | | | [place] [address] | | | | | | [phone] | | | | | | | | +--------+---------+ + + + | 02/15/ | Office | Internal Medicine | Neerajflip, | | | 2019 | Visit | | MD Petrona | | | | | | [address] [place] | | | | | | [place] [address] | | | | | | [phone] | | | | | | | | +--------+---------+ + + + documented as of this encounter Visit Diagnoses + + | Diagnosis | + + | Osteoporosis, unspecified osteoporosis type, unspecified pathological fracture | | presence - Primary | + + documented in this encounter"
--- OUTSIDE RECORDS SUMMARY | ~2019-11-17 | XMS | Encounter Summary ---
Demographics + + + | Address | [address] | | | [place] [address] | + + + | Home Phone [...] Team Providers + +------+ + | Care Compensator Name | Role | Phone | + [...] of this encounter Progress Notes Interface, Freight Traffic Consultant In - 01/11/2005 6:26 PM PDT Referred [...] blindness. History was obtained from the patient, [facility] medical records, and two magnetic resonance [...] any point. She has been seen her geodetic technician in [facility], Dr. Lc Renteria, who by her report [...] and fibromyalgia. SOCIAL HISTORY: Patient lives in [facility] with her eldest son. She supports herself [...] acute distress. She does have a right-sided Croatian crutch which she uses to enter and [...] biceps, triceps, wrist extensors, finger extensors, hand insulation hoseman, hip flexors and extensors, and ankle, plantar, and dorsiflexors as well as knee flexors and extensors. There is no pronator drift. Reflexes are 2+ and symmetrical at the biceps, triceps, brachioradialis, patellar, and ankle regions. Toes are downgoing to plantar stimulation. Light touch and tuning fork is within normal limits in the lower extremities. Hdihor-mz-bxbl and fine finger movements are within normal [...] Amin M.D., Neurophthalmology cc: CRYSTAL CARTER M.D. [facility] [address] [facility] [id number] signed by Interface, Freight Traffic Consultant In at 2004 6:26 PM PDTdocumented in this encounter Plan of Treatment Not on filedocumented as of this encounter Visit Diagnoses Not on filedocumented in this encounter"
--- OUTSIDE RECORDS SUMMARY | ~2019-11-17 | XMS | Encounter Summary ---
Demographics + + + | Address | [address] | | | [place] [address] | + + + | Home Phone [...] Team Providers + +------+ + | Care Relationship Specialist Name | Role | Phone | [...] ANP | Assessment | | | | [facility] | | | | | | [address] | | | | | | Mailcode: CH15P | | | | | | [facility] | | | | | | and Healing, | | | | | | Building | | | | | | Floor [place], [place] | | | | | | [address] | | | | | | [phone] | | | +--------+ + + + [...]
--- OUTSIDE RECORDS SUMMARY | ~2019-11-17 | XMS | Encounter Summary ---
Demographics + + + | Address | [address] | | | [place] [address] | + + + | Home Phone [...] Providers + +------+ + | Care Emergency Service Restorer Name | Role | Phone | + +------+ + PCP | Unavailable | + +------+ + Encounter Details +--------+ + + + + | Date | Type | Department | Care Team | Description | +--------+ + + + + | 07/31/ | Hospital | [facility] | Ruben Tobias | | | 2005 | Encounter | MED CTR SLEEP | MD Raji [address] | | | | | [place] [address] | [address] [facility] | | | | | [place], [place] | [place] [address] | | | | | [address] | [phone] | | | | | [phone] | | | +--------+ + + + [...] | | | | | | [place] [address] | | | | | | [phone] | | | | | | | | +--------+---------+ + + + | 12/20/ | Office | Otolaryngology | Ulysses Genao MD | | | 2019 | Visit | | [address] | | | | | | [address] [place], | | | | | | [place] [address] | | | | | | [phone] | | | | | | | | +--------+---------+ + + + | 02/15/ | Office | Internal Medicine | Alanis, | | | 2019 | Visit | | MD Petrona | | | | | | [address] | | | | | | [place] [address] | | | | | | [phone] | | | | | | | | +--------+---------+ + + + documented as of this encounter Visit Diagnoses Not on filedocumented in this encounter"
--- OUTSIDE RECORDS SUMMARY | ~2019-11-17 | XMS | Encounter Summary ---
Demographics + + + | Address | [address] | | | [place] [address] | + + + | Home Phone [...] Providers + +------+ + | Care Photographer Motion Picture Name | Role | Phone [...] | | | Metabolism | bypass | [address] | | | | | Hypovitamino | [address], | [address] | | | | | sis D [address] | [address] | [place], [place] | | | | | nutritional | [place], [place] | [address] | | | | | deficiency | [address] | Phone: | | | | | Other | Phone: | [phone] | | | | | protein-jose manuel | [phone] | Fax: | | | | | nick | Fax: | [phone] | | | | | malnutrition | [phone] | | | | | | Weight | | | | | | | gain | | | | | | | Procedures | | | | | | | CONSULT TO | | | | | | | ENDO | | | | | | | [address] | | | +--------+--------+ + + + [...] | | | [facility] | [place], [place] | (Primary Dx); | | | | [address] | [address] | Metabolic syndrome X | | | | [address] | [phone] | 250.80; Essential | | | | [facility] | | hypertension 401.9; | | | | Physician's | | Unstable balance | | | | Pavilion [place], | | | | | | [place] [address] | | | | | | [phone] | | | +--------+---------+ + + + [...] Hives Mainly in the legs Clindamycin Codeine Avmwmsb-Tfdtucufez-Wlf-Caff Balance problems Fioricet W/Codeine (Vwcjejluxz-Ppmroxavob-Aay-Cod) Keflex (Cephalexin) Morphine IM ( only in [facility]) made gut pain worse 08/27/06: Trial [...] U/L 41 ANION GAP 8 VITAMIN B12, [id number] pg/ml >2000 (H) HEMOGLOBIN A1C <=5.6 % [...] SERUM 15.0-85.0 pg/ml 222.9 (H) VITAMIN B12, [id number] pg/ml > 2000 HEMOGLOBIN A1C <=5.6 % [...] home vi a a long drive to [place]. She needs further evaluation of her right hip and CORE MANAGER. This c an be most easily accomplished [...] + +--------+ + + + | DC COLLECTION | Routin | 08/09/2013 | IGT [...] [place] | [address] | [place], [place] | | | [facility] [place]ARE | [address] | [address] | | | TESTS | | | [...] VERONICA | [address] | [place], [place] | | | [facility] [facility] | [address] | [address] | | | TESTS | | | [...]
--- OUTSIDE RECORDS SUMMARY | ~2019-11-17 | XMS | Encounter Summary ---
Demographics + + + | Address | [address] | | | [place] [address] | + + + | Home Phone [...] Providers + +------+ + | Care Farm Equipment Technician Name | Role | Phone [...] of this encounter Progress Notes Interface, Field Service Specialist In - 01/11/2005 6:26 PM PDTClinic Date: [...] bypass surgery. Dwaine Al M.D. LEDY / [id number] / [id number] / [id number] / Tdocumented in this encounter Plan of Treatment Not on filedocumented as of this encounter Visit Diagnoses Not on filedocumented in this encounter"
--- OUTSIDE RECORDS SUMMARY | ~2019-11-17 | XMS | Encounter Summary ---
Demographics + + + | Address | [address] | | | [place] [address] | + + + | Home Phone [...] Team Providers + +------+ + | Care Airborne Mission Systems Name | Role | Phone | [...] + | 03/12/ | Refill | [facility] | Alanis, | Medication Refill | | 2018 | | MEDICINE [address] [place] [address] | MD Petrona | | | | | [facility] | [address] [place] [address] | | | | | [place] [address] | [place] [address] | | | | | [phone] | [phone] | | | | | | | [...] | | | | | [place] [address] | | | | | | [phone] | | | | | | | | +--------+---------+ + + + | 12/20/ | Office | Otolaryngology | Ulysses Genao MD | | | 2019 | Visit | | [address] | | | | | | [address] [place], | | | | | | [place] [address] | | | | | | [phone] | | | | | | | | +--------+---------+ + + + | 02/15/ | Office | Internal Medicine | Alanis, | | | 2019 | Visit | | MD Petrona | | | | | | [address] [place] [address] [address] | | | | | | [place] [address] | | | | | | [phone] | | | | | | | | +--------+---------+ + + + documented as of this encounter Visit Diagnoses Not on filedocumented in this encounter"
--- OUTSIDE RECORDS SUMMARY | ~2019-11-17 | XMS | Encounter Summary ---
Demographics + + + | Address | [address] | | | [place] [address] | + + + | Home Phone [...] Providers + +------+ + | Care Monogram Maker Name | Role | Phone | [...] 2006 | Visit | [facility] at [facility] | [address] [facility] | Myelopathy, Lumbar | | | | [place] [address] [place], | Region; Neck Pain; | | | | [address] Mailcode: | [place] [address] | Herniated Lumbar | | | | CH15P [facility] | | Intervertebral Disc | | | | Health and Healing, | | L4-5; Fibromyalgia | | | | Building | | syndrome 729.1; NO | | | | Floor [place], [place] | | DIAGNOSIS RECEIVED | | | | [address] | | | | | | [phone] | | | +--------+---------+ + + + [...] Date: December 02, 2006 Patient: Belinda Meehan, [id number], 1960 I agree with the proposed Physical Therapy Treatment Plan. Provider: DELFINA BUNDY elfina Molina - 007 11:31 AM PDTThis encounter was opened in error. Please disregard this note. athalia Arora - 007 12:26 PM PDT PROGRESS NOTE: Physical Therapy Medicare Progress Note Date: 10/07/2006 Belinda Meehan [id number]. 1960 Start of Care: 06/23/2006 Referring Provider: [...] dial meniscal tear. Patient continues walking at [place] on a daily basis, (when she is no t in [place] for appts), 30-40 minutes, and her HEP [...] ended: 115 Nathalia Arora, Physical Therapist License #[id number] documented in this encoun ter Plan of Treatment + + +--------+ + + | Name | Type | Priori | Associated Diagnoses | Order Schedule | | | | ty | | | + + +--------+ + + | [place] THERAPEUTIC | Procedures | Routin | Spondylosis [...]
--- OUTSIDE RECORDS SUMMARY | ~2019-11-17 | XMS | Encounter Summary ---
Demographics + + + | Address | [address] | | | [place] [address] | + + + | Home Phone [...] Providers + +------+ + | Care Bundle Wrapper Name | Role | Phone | [...] + | 12/14/ | Refill | [facility] | Alanis, | Medication Refill | | 2018 | | MEDICINE [address] [place] [address] | MD Petrona | | | | | [facility] | [address] [place] [address] | | | | | [place] [address] | [place] [address] | | | | | [phone] | [phone] | | | | | | | [...] | | | | | [place] [address] | | | | | | [phone] | | | | | | | | +--------+---------+ + + + | 12/20/ | Office | Otolaryngology | Ulysses Genao MD | | | 2019 | Visit | | [address] | | | | | | [address] [place], | | | | | | [place] [address] | | | | | | [phone] | | | | | | | | +--------+---------+ + + + | 02/15/ | Office | Internal Medicine | Alanis, | | | 2019 | Visit | | MD Petrona | | | | | | [address] [place] [address] [address] | | | | | | [place] [address] | | | | | | [phone] | | | | | | | | +--------+---------+ + + + documented as of this encounter Visit Diagnoses Not on filedocumented in this encounter"
--- OUTSIDE RECORDS SUMMARY | ~2019-11-17 | XMS | Encounter Summary ---
Demographics + + + | Address | [address] | | | [place] [address] | + + + | Home Phone [...] Team Providers + +------+ + | Care Piggery Worker Name | Role | Phone | [...] + + | 08/23/ | Telephone | [facility] | Alanis, | Medication Follow-up | | 2019 | | [address] | MD Petrona | (Prior | | | | [facility] | [address] [place] [address] | Authorization | | | | [place] [id number] | [place] [id number] | needed) | | | | [phone] | [phone] | | | | | | | [...] [facility] [address] | | | | | | [address] [place] | | | | | | [place] [address] | | | | | | [phone] | | | | | | | | +--------+---------+ + + + | 12/20/ | Office | Otolaryngology | Ulysses Genao MD | | 2019 | Visit | | [address] | | | | | | [address] [place], | | | | | | [place] [address] | | | | | | [phone] | | | | | | | | +--------+---------+ + + + | 02/15/ | Office | Internal Medicine | Alanis, | | | 2019 | Visit | | MD Petrona | | | | | | [address] | | | | | | [place] [address] | | | | | | [phone] | | | | | | | | +--------+---------+ + + + documented as of this encounter Visit Diagnoses Not on filedocumented in this encounter"
--- OUTSIDE RECORDS SUMMARY | ~2019-11-17 | XMS | Encounter Summary ---
Demographics + + + | Address | [address] | | | [place] [address] | + + + | Home Phone [...] Providers + +------+ + | Care Sports Medicine Physician Name | Role | Phone [...] + + | 05/01/ | Refill | [facility] | Alanis, | Medication Refill | | 2017 | | MEDICINE [address] [place] [address] | MD Petrona | | | | | [facility] | [address] [place] [address] | | | | | [place] [address] | [place] [address] | | | | | [phone] | [phone] | | | | | | | [...] | Visit | | [facility] [address] | | | | | [address] [place] | | | | | | [place] [address] | | | | | | [phone] | | | | | | | | +--------+---------+ + + + | 12/20/ | Office | Otolaryngology | Ulysses Genao MD | | | 2019 | Visit | | [address] | | | | | | [address] [place], | | | | | | [place] [address] | | | | | | [phone] | | | | | | | | +--------+---------+ + + + | 02/15/ | Office | Internal Medicine | Alanis, | | | 2019 | Visit | | MD Petrona | | | | | | [address] [place] [address] [address] | | | | | | [place] [address] | | | | | | [phone] | | | | | | | | +--------+---------+ + + + documented as of this encounter Visit Diagnoses Not on filedocumented in this encounter"
--- OUTSIDE RECORDS SUMMARY | ~2019-11-17 | XMS | Encounter Summary ---
Demographics + + + | Address | [address] | | | [place] [address] | + + + | Home Phone [...] Team Providers + +------+ + | Care Oiler Helper Name | Role | Phone | [...] + + | 07/30/ | Office | [facility] | Delfina Molina, | Cervical Spondylosis | | 2006 | Visit | Pain Center at | ANP | without Myelopathy | | | | [facility] | | (Primary Dx); Right | | | | [address] | | shoulder rotator | | | | Mailcode: CH15P | | cuff strain; | | | | [place] [facility] | | Spondylosis with | | | | and Healing, | | Myelopathy, Lumbar | | | | Building | | Region; Herniated | | | | Floor [place], [place] | | Lumbar | | | | [address] | | Intervertebral Disc | | | | [phone] | | L4-5; Migraine | | | [...] Belinda Meehan is a 46 y.o. female [facility] Return Visit Chief [...] have helped improve function but not terminal computer operator, and she reports sleeping poorly due to pain disru ption since prior visit. Since prior visit she had a 06/24/06: Bone density study and her T-Score -1.2 lumbar spine a nd -2.2 proximal femur. Collection Information Collection Date Collection Time Resulting Agency 03/10/2006 2:[address] [facility] DEPARTMENT OF PATHOLOGY Component Results Component Value Range Status CALCIUM (LAB) 9.5 8.5 - 10.5 mg/dL Fin SPINE LUMBAR 2 VIEWS AT 1421 HOURS LUMBAR SPINE, 10/01/05 HISTORY: Back pain. FINDINGS: AP and lateral views of the lumbar spine show five bzf-abn-jjrxgfr lumbar vertebrae in normal alignment with no [...] spent in reviewing of chart, imaging and auto club travel counselor ing/coordindation of care. 1. For the [...] appropriate care and safety for your patient, [facility] r equires a primary care [...] Please indicate and fax your response to [phone]. I called and left a message on [facility] general voice mail requesting he call me to discuss prescribing and patient care. DELFINA MOLINA [facility] Pain Center Mail code CH 4P [facility] and [address] [address] aurav Tasha - 07/30/2006 7:35 [...] | + +---------+ + + | [facility] DEPARTMENT OF | | | | | [...]
--- OUTSIDE RECORDS SUMMARY | ~2019-11-17 | XMS | Encounter Summary ---
Demographics + + + | Address | [address] | | | [place] [address] | + + + | Home Phone [...] + +------+ + | Care Food Service Worker Name | Role | Phone [...] + + | 03/03/ | Office | [facility] Comprehensive | Dlefina Molina, | LBP (Low Back Pain); | | 2007 | Visit | Pain Center at | ANP | Spondylosis with | | | | [facility] | | Myelopathy, Lumbar | | | | [address] | | Region; Bilateral | | | | Mailcode: CH15P | | Leg Pain; | | | | [place] [facility] | | Radiculitis, | | | | and Healing, | | Lumbosacral; | | | | Building | | Encounter for | | | | Floor [place], [place] | | Long-Term (Current) | | | | [address] | | Use of Opioids; Hx | | | | [phone] | | Arthroplasty of both | | [...] Meehan is a 48 y.o. female [facility] Comprehensive Pain Center Return Visit Chief [...] be ing reviewed by Dr Constantino SHEEHAN backing in machine tender. MRI of the brain and it was normal A Brief Pain Inventory and a pain drawing has be completed, which I reviewed. [facility] Brief Pain Inventory: (ten= worst possible [...] Ogden PhD TPI every 5-6 months with [facility] Rheumatology Hilda Saenz Review of Systems: [...] history, fam bijan history, or social history. [facility] Encorinology [facility] ACNP ThuNovember 12, 2007 Assessment: [...] continue to discuss with her options at [facility] with, hopefully, coordinatio n of services. [...] 300 mg) by oral route once daily nolbtagkwe-mstwzuqpqwska-kcyugnob (FIORICET) 50-325-40 mg Oral Tablet take 2 [...] DISK BULGE. Transcribed By: Armaan Mata : [id number] : 1442 Approved By: Radiologist: Physical Examination: [...] with any concerns or questions. DELFINA MOLINA [facility] PA[facility] C[facility] Mail code CH 4P [facility] [address] [place] [address] Ailyn Foster - 03/03/20 08 10:24 [...]
--- OUTSIDE RECORDS SUMMARY | ~2019-11-17 | XMS | Encounter Summary ---
Demographics + + + | Address | [address] | | | [place] [address] [...] Team Providers + +------+ + | Care Ski Top Trimmer Name | Role | Phone | + +------+ + | Petrona Thapa | PCP | | | MD | | | + +------+ + Encounter Details +--------+ + + + + | Date | Type | Department | Care Team | Description | +--------+ + + + + | 05/10/ | Orders Only | [facility] | Alanis, | Chronic bilateral | | 2017 | | MEDICINE [address] | MD Petrona | low back pain with | | | | [address] [place] | [address] [facility] | left-sided sciatica | | | | [place] [address] | [place] [address] | (Primary Dx) | | | | [phone] | [phone] | | | | | | | [...] | | | | | [place] [address] | | | | | | [phone] | | | | | | | | +--------+---------+ + + + | 12/20/ | Office | Otolaryngology | Ulysses Genao MD | | | 2019 | Visit | | [address] | | | | | | [address] [place], | | | | | | [place] [address] | | | | | | [phone] | | | | | | | | +--------+---------+ + + + | 02/15/ | Office | Internal Medicine | Alanis, | | | 2020 | Visit | | MD Petrona | | | | | | [address] [place] | | | | | | [place] [address] | | | | | | [phone] | | | | | | | [...]
--- OUTSIDE RECORDS SUMMARY | ~2019-11-17 | XMS | Encounter Summary ---
Demographics + + + | Address | [address] | | | [place] [address] | + + + | Home Phone [...] Providers + +------+ + | Care Casting Operator Helper Name | Role | Phone [...] + | 09/04/ | Refill | [facility] | Alanis, | Medication Refill | | 2019 | | MEDICINE [address] | MD Petrona | | | | | [facility] | [address] [place] [address] | | | | | [place] [address] | [place] [address] | | | | | [phone] | | | | | | | [...] | | | | | [place] [address] | | | | | | [phone] | | | | | | | | +--------+---------+ + + + | 12/20/ | Office | Otolaryngology | Ulysses Genao MD | | | 2019 | Visit | | [address] | | | | | | [address] [place], | | | | | | [place] [address] | | | | | | [phone] | | | | | | | | +--------+---------+ + + + | 02/15/ | Office | Internal Medicine | Alanis, | | | 2019 | Visit | | MD Petrona | | | | | | [address] [place] [address] [address] | | | | | | [place] [address] | | | | | | [phone] | | | | | | | | +--------+---------+ + + + documented as of this encounter Visit Diagnoses Not on filedocumented in this encounter"
--- OUTSIDE RECORDS SUMMARY | ~2019-11-17 | XMS | Encounter Summary ---
Demographics + + + | Address | [address] | | | [place] [address] | + + + | Home Phone [...] Providers + +------+ + | Care Warehouse Order Filler Name | Role | Phone | + +------+ + | Sulaiman Carrera MD | PCP | | + +------+ + Encounter Details +--------+ + + + + | Date | Type | Department | Care Team | Description | +--------+ + + + + | 01/29/ | Ancillary | Registration 3181 | Beto Meeks MD | | | 2005 | Registratio | [facility] | [address] | | | | n | [place] Mailcode: RPB07 | [place], [place] | | | | | [place], [place] | [address] | | | | | [address] | [phone] | | | | | [phone] | | | +--------+ + + + [...] | | | | Test performed by [facility] | | [...] [facility] | [address] | [place], [place] | | | [facility] | | [address] | | + + + + + [...] + + + | [facility] | [address] | [place] [address] | | | LABORATORY | | | [...] BASO # | 0.0 | <0.3 | [facility] | | | | | | DEPARTMENT [...] + + + + | [facility] DEPARTMENT OF | [address] | [place] [address] | | | PATHOLOGY | [address] | | | + + + + + | [facility] DEPARTMENT OF | [address] | [place] [address] | | | PATHOLOGY | [address] [...] DEPARTMENT OF | [address] | [place], [place] [address] | | | PATHOLOGY | [address] | | | + + + + + | [facility] DEPARTMENT OF | [address] | [place] [address] | | | PATHOLOGY | [address] [...] Performed At | + + + | [id number] Estimated GFR > 60 mL/min/1.73 sq m if non- | [facility] | | [id number] Estimated GFR > 60 mL/min/1.73 sq m [...] + + + + | [facility] DEPARTMENT OF | [address] | [place] [address] | | | PATHOLOGY | [address] | | | + + + + + | [facility] DEPARTMENT OF | [address] | [place] [address] | | | PATHOLOGY | [address] | | | + + + + + documented in this encounter Visit Diagnoses Not on filedocumented in this encounter"
--- OUTSIDE RECORDS SUMMARY | ~2019-11-17 | XMS | Encounter Summary ---
Demographics + + + | Address | [address] | | | [place] [address] | + + + | Home Phone [...] Providers + +------+ + | Care Digital Ad Trafficker Name | Role | Phone | + [...] 08/26/ | Office | [facility] | Lukasz Charles, | Major Depressive | | 2006 | Visit | [address] | PhD [address] | Disorder, Recurrent | | | | Mailcode: 15 | [place], [place] | Episode, Moderate | | | | [facility] | [address] | ([facility]); Spondylosis | | | | and Healing, | [phone] | with Myelopathy, | | | | | | Lumbar Region; | | | | Floor [place], [place] | | Herniated Lumbar | | | | [address] | | Intervertebral Disc | | | | [phone] | | L4-5; Neck Pain; | | [...] talked to a friend about walking [place]. Overall she has made some good changes. [...] natalie ing an effort to improve. Diagnosis: [place] I: [...] [facility] [address] [place] [address] And [facility] [address] [place] [address] documented in this encount er Plan of [...] | | | | | ([facility]) Spondylosis | | | | | [...] recurrent episode, moderate ([facility]) Major depressive | | disorder, recurrent [...]
--- OUTSIDE RECORDS SUMMARY | ~2019-11-17 | XMS | Encounter Summary ---
Demographics + + + | Address | [address] | | | [place] [address] | + + + | Home Phone [...] Team Providers + +------+ + | Care Follow Up Manager Name | Role | Phone | [...] + + | 08/12/ | Refill | [facility] | Alanis, | Medication Refill | | 2017 | | MEDICINE [address] [place] [address] | MD Petrona | | | | | [facility] | [address] [place] [address] | | | | | [place] [address] | [place] [address] | | | | | [phone] | [phone] | | | | | | | [...] | | | | | [place] [address] | | | | | | [phone] | | | | | | | | +--------+---------+ + + + | 12/20/ | Office | Otolaryngology | Ulysses Genao MD | | | 2019 | Visit | | [address] | | | | | | [address] [place], | | | | | | [place] [address] | | | | | | [phone] | | | | | | | | +--------+---------+ + + + | 02/15/ | Office | Internal Medicine | Alanis, | | | 2019 | Visit | | MD Petrona | | | | | | [address] [place] [address] [address] | | | | | | [place] [address] | | | | | | [phone] | | | | | | | | +--------+---------+ + + + documented as of this encounter Visit Diagnoses Not on filedocumented in this encounter"
--- OUTSIDE RECORDS SUMMARY | ~2019-11-17 | XMS | Encounter Summary ---
Demographics + + + | Address | [address] | | | [place] [address] | + + + | Home Phone [...] Providers + +------+ + | Care Web Production Artist Name | Role | Phone | + +------+ + | Pedrito Gutierrez MD | PCP | | + +------+ + Encounter Details +--------+---------+ + + + | Date | Type | Department | Care Team | Description | +--------+---------+ + + + | 07/30/ | Office | Comprehensive Pain | Nathalia Arora | Cervical Spondylosis | | 2006 | Visit | [facility] | [address] | without Myelopathy | | | | [place] [address] | Clementina Winkler [place], | (Primary Dx); | | | | [address] Mailcode: | [place] [address] | Spondylosis with | | | | [facility] | | Myelopathy, Lumbar | | | | Health and Healing, | | Region; Herniated | | | | Building | | Lumbar | | | | Floor [place], [place] | | Intervertebral Disc; | | | | [address] | | Unspecified Myalgia | | | | [phone] | | and Myositis | +--------+---------+ + [...] Progress Note Date: 07/30/2006 Belinda Barnes Shefali [id number] Start of Care: 06/23/2006 Referring Provider: [...] her today. Patient has multiple appts. At [facility] today, including a f/u regarding her [...] + + +--------+ + + | [place] MANUAL THER | Procedures | Routin | [...] [place] THERAPEUTIC | Procedures | Routin | Cervical [...]
--- OUTSIDE RECORDS SUMMARY | ~2019-11-17 | XMS | Encounter Summary ---
Demographics + + + | Address | [address] | | | [place] [address] | + + + | Home Phone [...] Team Providers + +------+ + | Care Converter Operator Name | Role | Phone [...] | | | 2006 | Registratio | [facility] | [address] | | | | n | [place] Mailcode: RPB07 | [place], [place] | | | | | [place], [place] | [address] | | | | | [address] | [phone] | | | | | [phone] | | | +--------+ + + + [...] | | | | | performed by [facility] | pg/mL | | | | | [facility]. | | | | + + + + + + + + | Specimen | + + | | + + + + + + + | Performing | Address | City/State/Zipcode | Phone Number | | Organization | | | | + + + + + | [facility] | [address] | [place] [address] | | | LABORATORY | | | [...] at: | | | | | | [employer],[address] | | | | | | [facility] | | | | | | [address] | | | | | | [email or web address] | | | | + + + + + + + + | Specimen | + + | | + + + + + + + | Performing | Address | City/State/Zipcode | Phone Number | | Organization | | | | + + + + + | [facility] | [address] | [place], [place] | | | [facility] | | [address] | | + + + + + [...] Iron and TIBC, Serum Test performed by [facility] | | | [facility] [employer] | | + + + + + + + + | Performing | Address | City/State/Zipcode | Phone Number | | Organization | | | | + + + + + | [facility] | [address] | [place] [address] | | | LABORATORY | | | [...] | B12, SERUM | Test performed by [facility] | | | | | | [facility] | | | | | | Laboratories. | | | | + + + + + + + + | Specimen | + + | | + + + + + + + | Performing | Address | City/State/Zipcode | Phone Number | | Organization | | | | + + + + + | [facility] | [address] | [place] [address] | | | LABORATORY | | | | + + + + + SLIDE REVIEW (07/30/2006 4:00 PM PST) + + | Specimen | + + | | + + + + + | Narrative | Performed At | + + + | * Corrected 07/30/06 18:23: SUHSIL COMMENTS, prev report: Not | [facility] | | reported | DEPARTMENT OF | | | PATHOLOGY | + + + + + + + + | Performing | Address | City/State/Zipcode | Phone Number | | Organization | | | | + + + + + | [facility] DEPARTMENT OF | [address] | [place] [address] | | | PATHOLOGY | [address] | | | + + + + + | [facility] DEPARTMENT OF | [address] | [place] [address] | | | PATHOLOGY | [address] [...] + + | [facility] DEPARTMENT OF | [address] | [place] [address] | | | PATHOLOGY | [address] | | | + + + + + | [facility] | [facility] [address] | [place] [address] | | | PATHOLOGY | [address] [...] Performed At | + + + | [id number] Estimated GFR > 60 mL/min/1.73 sq m if non- | [facility] | | [id number] Estimated GFR > 60 mL/min/1.73 sq m [...] + | [facility] | [address] | [place] [address] | | | PATHOLOGY | [address] | | | + + + + + | [facility] | [address] | [place] [address] | | | PATHOLOGY | [address] | | | + + + + + documented in this encounter Visit Diagnoses Not on filedocumented in this encounter"
--- OUTSIDE RECORDS SUMMARY | ~2019-11-17 | XMS | Encounter Summary ---
Demographics + + + | Address | [address] | | | [place] [address] | + + + | Home Phone [...] Providers + +------+ + | Care Book Editor Name | Role | Phone | [...] | | | | [address] | [address] | | | | | | [place], | Phone: | | | | | | [place] | [phone] | | | | | | [address] | | | | | | | Phone: | | | | | | | [phone] | | | | | | | Fax: | | | | | | | [phone] | | +--------+ + + + + [...] [place] | Dx) | | | | [place] [address] | [place] [address] | | | | | [phone] | [phone] | | | | | | | [...] | | | | | [place] [address] | | | | | | [phone] | | | | | | | | +--------+---------+ + + + | 12/20/ | Office | Otolaryngology | Ulysses Genao MD | | | 2019 | Visit | | [address] | | | | | | [address] [place], | | | | | | [place] [address] | | | | | | [phone] | | | | | | | | +--------+---------+ + + + | 02/15/ | Office | Internal Medicine | Alanis, | | | 2019 | Visit | | MD Petrona | | | | | | [address] [place] | | | | | | [place] [address] | | | | | | [phone] | | | | | | | [...]
--- OUTSIDE RECORDS SUMMARY | ~2019-11-17 | XMS | Encounter Summary ---
Demographics + + + | Address | [address] | | | [place] [address] | + + + | Home Phone [...] Team Providers + +------+ + | Care Copy Room Technician Name | Role | Phone | [...] [address] | | | | | [place], [place] | [place], [place] | | | | | [address] | [address] | | | | | [phone] | [phone] | | | | | | | [...] DEPARTMENT OF | [address] | [place] [address] | | | PATHOLOGY | [address] | | | + + + + + | [facility] DEPARTMENT OF | [address] | [place] [address] | | | PATHOLOGY | [address] [...] + + | [facility] DEPARTMENT OF | [address] | [place] [address] | | | PATHOLOGY | [address] | | | + + + + + | [facility] DEPARTMENT OF | [address] | [place] [address] | | | PATHOLOGY | [address] [...] Performed At | + + + | [id number] Estimated GFR > 60 mL/min/1.73 sq m if non- | [facility] | | [id number] Estimated GFR > 60 mL/min/1.73 sq m [...] [facility] | [address] | [place] [address] | | | PATHOLOGY | [address] | | | + + + + + | [facility] | [address] | [place] [address] | | | PATHOLOGY | [address] | | | + + + + + documented in this encounter Visit Diagnoses Not on filedocumented in this encounter"
--- OUTSIDE RECORDS SUMMARY | ~2019-11-17 | XMS | Encounter Summary ---
Demographics + + + | Address | [address] | | | [place] [address] | + + + | Home Phone [...] Team Providers + +------+ + | Care Electrotype Caster Name | Role | Phone | + [...] + + | 03/08/ | Telephone | [facility] | Alanis, | Hospitalization | | 2017 | | MEDICINE [address] [place] [address] | MD Petrona | | | | | [facility] | [address] [place] [address] | | | | | [place] [address] | [place] [address] | | | | | [phone] | [phone] | | | | | | | [...] | | | | | [place] [address] | | | | | | [phone] | | | | | | | | +--------+---------+ + + + | 12/20/ | Office | Otolaryngology | Ulysses Genao MD | | | 2019 | Visit | | [address] | | | | | | [address] [place], | | | | | | [place] [address] | | | | | | [phone] | | | | | | | | +--------+---------+ + + + | 02/15/ | Office | Internal Medicine | Alanis, | | | 2019 | Visit | | MD Petrona | | | | | | [address] [place] | | | | | | [place] [address] | | | | | | [phone] | | | | | | | | +--------+---------+ + + + documented as of this encounter Visit Diagnoses Not on filedocumented in this encounter"
--- OUTSIDE RECORDS SUMMARY | ~2019-11-17 | XMS | Encounter Summary ---
Demographics + + + | Address | [address] | | | [place] [address] | + + + | Home Phone [...] Providers + +------+ + | Care Dairy Feed Sales Consultant Name | Role | Phone [...] | | | [facility] | [place], [place] | | | | | [address] | [address] | | | | | [address] | [phone] | | | | | Physician's | | | | | | Pavilion, [facility] floor | | | | | | [place], [place] | | | | | | [address] | | | | | | [phone] | | | +--------+ + + + [...] | | | | | performed at [facility] | | | | | | [place] [...] + + + | [facility] | [address] | [place] [address] | | | LABORATORY | | | [...] + + | [facility] | [address] | [place] [address] | | | LABORATORY | | | [...] | [facility] | | | | | [facility] | | | | | | Laboratories. | | | | + + + + + + + + | Specimen | + + | | + + + + + + + | Performing | Address | City/State/Zipcode | Phone Number | | Organization | | | | + + + + + | [facility] | [address] | [place] [address] | | | LABORATORY | | | [...] | | | SERUM | performed by [facility] | | | | | | [facility] | | | | | | Laboratories. | | | | + + + + + + + + | Specimen | + + | | + + + + + + + | Performing | Address | City/State/Zipcode | Phone Number | | Organization | | | | + + + + + | [facility] | [address] | [place] [address] | | | LABORATORY | | | [...] + | [facility] DEPARTMENT OF | [address] [facility] | [place] [address] | | | PATHOLOGY | [address] | | | + + + + + | [facility] DEPARTMENT OF | [address] [facility] | [place] [address] | | | PATHOLOGY | [address] [...] + + | [facility] | [facility] | [place] [address] | | | PATHOLOGY | [address] | | | + + + + + | [facility] | [facility] | [place] [address] | | | PATHOLOGY | [address] | | | + + + + + documented in this encounter Visit Diagnoses Not on filedocumented in this encounter"
--- OUTSIDE RECORDS SUMMARY | ~2019-11-17 | XMS | Encounter Summary ---
Demographics + + + | Address | [address] | | | [place] [address] | + + + | Home Phone [...] | | 2002 | Only | | [phone] | | +--------+ + + + + [...] + | Ordered by LAB CENTRAL | [facility] | | | DEPARTMENT OF | | | PATHOLOGY | + + + + + + + + | Performing | Address | City/State/Zipcode | Phone Number | | Organization | | | | + + + + + | [facility] DEPARTMENT OF | [facility] | [place] [address] | | | PATHOLOGY | [address] | | | + + + + + | [facility] DEPARTMENT OF | [facility] | [place] [address] | | | PATHOLOGY | [address] | | | + + + + + documented in this encounter Visit Diagnoses Not on filedocumented in this encounter"
--- OUTSIDE RECORDS SUMMARY | ~2019-11-17 | XMS | Encounter Summary ---
Demographics + + + | Address | [address] | | | [place] [address] | + + + | Home Phone [...] Team Providers + +------+ + | Care Damage Assessor Name | Role | Phone | [...] | | | | | | [place], | | | | | | | [place] | | | | | | | [address] | | | | | | | Phone: | | | | | | | [phone] | | | | | | | Fax: | | | | | | | [phone] | +--------+--------+ + + + + Encounter Details +--------+---------+ + + + | Date | Type | Department | Care Team | Description | +--------+---------+ + + + | 07/10/ | Office | Digestive Health | Eliezer Ruano, | Abdominal Pain, | | 2008 | Visit | [place] [address] | [address] | dumping syndrome Hx | | | | Ave Mailcode: [facility] | [address] | of gastric bypass | | | | [facility] | [place], [place] | (Primary Dx) | | | | and Healing, | [address] | | | | | Building | [phone] | | | | | Floor [place], [place] | | | | | | [address] | | | | | | [phone] | | | +--------+---------+ + + + [...] and plan of care. ELIEZER RUANO MD [address] Mailcode: [place] [address] Yuriy Mayo MD - 06/16 [...] (Ciprofloxacin) Tramadol Morphine IM ( only in [facility]) made gut pain worse 08/27/06: [...] 300 mg) by oral route once daily rgslkqfwak-sjhwlzczbdlpx-rapeqjjy (FIORICET) 50-325-40 mg Oral Tablet take 2 [...] 278 01/18 Paniculectomy Hx lumbar fusion 05/2008 L1-X6kvizet with bone spur removals Review of Systems: [...]
--- OUTSIDE RECORDS SUMMARY | ~2019-11-17 | XMS | Encounter Summary ---
Demographics + + + | Address | [address] | | | [place] [address] | + + + | Home Phone [...] Providers + +------+ + | Care Plate Mill Mill Hand Name | Role | Phone | [...] | | | [facility] | [place], [place] | and counseling; | | | | [address] | [address] | [place] | | | | [address] | [phone] | | | | | [facility] | | | | | | Physician's | | | | | | Pavilion [place], | | | | | | [place] [address] | | | | | | [phone] | | | +--------+ + + + [...]
--- OUTSIDE RECORDS SUMMARY | ~2019-11-17 | XMS | Encounter Summary ---
Demographics + + + | Address | [address] | | | [place] [address] | + + + | Home Phone [...] Team Providers + +------+ + | Care Condominium Manager Name | Role | Phone | [...] Pavilion | | | | | | [place], [place] | | | | | | [address] | | | | | | [phone] | | | +--------+ + + + [...]
--- OUTSIDE RECORDS SUMMARY | ~2019-11-17 | XMS | Encounter Summary ---
Demographics + + + | Address | [address] | | | [place] [address] | + + + | Home Phone [...] Team Providers + +------+ + | Care Bike Designer Name | Role | Phone | [...] + + | 04/02/ | Telephone | [facility] INTER[facility] | Alanis, | Other | | 2018 | | MEDICINE [address] [place] [address] | MD Petrona | | | | | [facility] | [address] [place] [address] | | | | | [place] [address] | [place] [address] | | | | | [phone] | [phone] | | | | | | | [...] | | | | | [place] [address] | | | | | | [phone] | | | | | | | | +--------+---------+ + + + | 12/20/ | Office | Otolaryngology | Ulysses Genao MD | | | 2019 | Visit | | [address] | | | | | | [address] [place], | | | | | | [place] [address] | | | | | | [phone] | | | | | | | | +--------+---------+ + + + | 02/15/ | Office | Internal Medicine | Alanis, | | | 2019 | Visit | | MD Petrona | | | | | | [address] [place] | | | | | | [place] [address] | | | | | | [phone] | | | | | | | | +--------+---------+ + + + documented as of this encounter Visit Diagnoses Not on filedocumented in this encounter"
--- OUTSIDE RECORDS SUMMARY | ~2019-11-17 | XMS | Encounter Summary ---
Demographics + + + | Address | [address] | | | [place] [address] | + + + | Home Phone [...] Providers + +------+ + | Care Welder First Class Name | Role | Phone | + +------+ + | Pet[place] Thapa | PCP | | | MD | | | + +------+ + Encounter Details +--------+ + + + + | Date | Type | Department | Care Team | Description | +--------+ + + + + | 07/09/ | Abstract | [facility] | Alanis, | | | 2018 | | MEDICINE [address] | MD Petrona | | | | | [address] [place] | [address] [facility] | | | | | [place] [address] | [place] [address] | | | | | [phone] | [phone] | | | | | | | [...] | | | | | [place] [address] | | | | | | [phone] | | | | | | | | +--------+---------+ + + + | 12/20/ | Office | Otolaryngology | Ulysses Genao MD | | | 2019 | Visit | | [address] | | | | | | [address] [place], | | | | | | [place] [address] | | | | | | [phone] | | | | | | | | +--------+---------+ + + + | 02/15/ | Office | Internal Medicine | Alanis, | | | 2019 | Visit | | MD Petrona | | | | | | [address] [place] | | | | | | [place] [address] | | | | | | [phone] | | | | | | | [...]
--- OUTSIDE RECORDS SUMMARY | ~2019-11-17 | XMS | Encounter Summary ---
Demographics + + + | Address | [address] | | | [place] [address] | + + + | Home Phone [...] + +------+ + | Care Client Care Manager Name | Role | Phone [...] | | | | | Procedures | [facility] | Mailcode: | | | | | CONSULT TO | Rd | [facility] | | | | | NEUROLOGY | [place], [place] | for Health | | | | | | [address] | and Healing, | | | | | | Phone: | Building 1, | | | | | | [phone] | 8th Floor | | | | | | | [place], [place] | | | | | | | [address] | | | | | | | Phone: | | | | | | | [phone] | | | | | | | Fax: | | | | | | | [phone] | +--------+--------+ + + + + Encounter Details +--------+---------+ + + + | Date | Type | Department | Care Team | Description | +--------+---------+ + + + | 03/24/ | Office | Neurology at | Taniya Guerrero, | Migraine Headache | | 2007 | Visit | [facility] & | | (Primary Dx) | | | | Healing [address] | | | | | | Bethanie Mailcode: [facility] | | | | | | [facility] | | | | | | and Healing, | | | | | | Building | | | | | | Floor [place], [place] | | | | | | [address] | | | | | | [phone] | | | +--------+---------+ + + + [...] low blood pressure. 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 Social History Main Topics [...] touch symmetrically throughout. Cerebellar testing shows normal ocexaj-bg-ekqy and finger tapping. On gait testing, she [...] the names of 3 headache specialists in [place]- Dr. Koby García, Dr. Dakota Sweet and [...]
--- OUTSIDE RECORDS SUMMARY | ~2019-11-17 | XMS | Encounter Summary ---
Demographics + + + | Address | [address] | | | [place] [address] | + + + | Home Phone [...] Team Providers + +------+ + | Care Anchorman Name | Role | Phone | + [...] + + | 10/13/ | Telephone | [facility] | Alanis, | Appointment Question | 2019 | | MEDICINE [address] [place] [address] | MD Petrona | | | | | [facility] | [address] [place] [address] | | | | | [place] [address] | [place] [address] | | | | | [phone] | [phone] | | | | | | | [...] | | | | | [place] [address] | | | | | | [phone] | | | | | | | | +--------+---------+ + + + | 12/20/ | Office | Otolaryngology | Ulysses Genao MD | | | 2019 | Visit | | [address] | | | | | | [address] [place], | | | | | | [place] [address] | | | | | | [phone] | | | | | | | | +--------+---------+ + + + | 02/15/ | Office | Internal Medicine | Alanis, | | | 2019 | Visit | | MD Petrona | | | | | | [address] | | | | | | [place] [address] | | | | | | [phone] | | | | | | | | +--------+---------+ + + + documented as of this encounter Visit Diagnoses Not on filedocumented in this encounter"
--- OUTSIDE RECORDS SUMMARY | ~2019-11-17 | XMS | Encounter Summary ---
Demographics + + + | Address | [address] | | | [place] [address] | + + + | Home Phone [...] Providers + +------+ + | Care Hand Tufter Name | Role | Phone | + [...] + + | 07/06/ | Telephone | [facility] INTER[facility] | Alanis, | Transfer Orders | | 2018 | | [address] | MD Petrona | | | | | [facility] | [address] [place] [address] | | | | | [place] [address] | [place] [address] | | | | | [phone] | [phone] | | | | | | | [...] | | | | | [place] [address] | | | | | | [phone] | | | | | | | | +--------+---------+ + + + | 12/20/ | Office | Otolaryngology | Ulysses Genao MD | | | 2019 | Visit | | [address] | | | | | | [address] [place], | | | | | | [place] [address] | | | | | | [phone] | | | | | | | | +--------+---------+ + + + | 02/15/ | Office | Internal Medicine | Alanis, | | | 2019 | Visit | | MD Petrona | | | | | | [address] [place] | | | | | | [place] [address] | | | | | | [phone] | | | | | | | | +--------+---------+ + + + documented as of this encounter Visit Diagnoses Not on filedocumented in this encounter"
--- OUTSIDE RECORDS SUMMARY | ~2019-11-17 | XMS | Encounter Summary ---
Demographics + + + | Address | [address] | | | [place] [address] | + + + | Home Phone [...] Team Providers + +------+ + | Care Parking Enforcer Name | Role | Phone | + [...] | | | | Clinical Nutrition | [place], [place] | | | | | [address] | [address] | | | | | Loop Mailcode: OPC5 | [phone] | | | | | Outpatient Clinic | | | | | | [facility] | | | | | | [place] [address] | | | | | | [phone] | | | +--------+ + + + [...] + + + | [facility] | [address] | [place] [address] | | | LABORATORY | | | [...] | uIU/ml | | | | | [facility] | | | | | | Laboratories. | | | | + + + + + + + + | Specimen | + + | | + + + + + + + | Performing | Address | City/State/Zipcode | Phone Number | | Organization | | | | + + + + + | [facility] | [address] | [place] [address] | | | LABORATORY | | | [...] | + + + + + | [facility] | [address] | [place] [address] | | | LABORATORY | | | [...] | | | SERUM | performed by [facility] | | | | | | [facility] | | | | | | Laboratories. | | | | + + + + + + + + | Specimen | + + | | + + + + + + + | Performing | Address | City/State/Zipcode | Phone Number | | Organization | | | | + + + + + | [facility] | [address] | [place] [address] | | | LABORATORY | | | [...] + + | [facility] | [address] | [place] [address] | | | PATHOLOGY | [address] | | | + + + + + | [facility] | [address] | [place] [address] | | | PATHOLOGY | [address] | | | + + + + + documented in this encounter Visit Diagnoses Not on filedocumented in this encounter"
--- OUTSIDE RECORDS SUMMARY | ~2019-11-17 | XMS | Encounter Summary ---
Demographics + + + | Address | [address] | | | [place] [address] | + + + | Home Phone [...] Providers + +------+ + | Care Camera Machinist Name | Role | Phone | [...] | | Essential | | | | [place], [place] | | hypertension 401.9; | | | | [address] | | Type II or | | | | [phone] | | unspecified type | | | [...] | | | LABORATORY | | | LITHUANIAN | | | SERVICES, | | | [...] | + + + + + | [facility] | [address] | [place] [address] | | | SERVICES, CORE | KEAGAN [...] + + + + + | [facility] | [address] | [place] [address] | | | SERVICES, CORE | KEAGAN [...] | | If you are | | [place] | | | | screening for diabetes: [...] + | [facility] | [address] | [place] [address] | | | [place] | | | [...] [facility] | [address] | [place] [address] | | | SERVICES, SPECIAL | PARK [...] + | [facility] | [address] | [place] [address] | | | SERVICES, CORE | KEAGAN [...] [facility] | [address] | [place] [address] | | | SERVICES, SPECIAL | KEAGAN [...] by | | | | | | [address] | | | | | | Abdiaziz Morales, [facility],[place] | | | | | | [address] | | | | | | [phone]. | | | | | | Get [...] [facility] | [address] | [place], [place] | | | [facility] | | [address] | | + + + + + [...] | + + + + + | [facility] | [address] | [place] [address] | | | SERVICES, SPECIAL | KEAGAN [...] + | [facility] | [address] | [place] [address] | | | [place] | | | | + + + [...]
--- OUTSIDE RECORDS SUMMARY | ~2019-11-17 | XMS | Encounter Summary ---
Demographics + + + | Address | [address] | | | [place] [address] | + + + | Home Phone [...] Team Providers + +------+ + | Care Jailkeeper Name | Role | Phone | + [...] + + | 02/11/ | Telephone | [facility] INTERNAL | Alanis, | Arm Pain (Right Arm) | | 2017 | | MEDICINE [address] [place] [address] | MD Petrona | | | | | [facility] | [address] [place] [address] | | | | | [place] [address] | [place] [address] | | | | | [phone] | [phone] | | | | | | | [...] | | | | | [place] [address] | | | | | | [phone] | | | | | | | | +--------+---------+ + + + | 12/20/ | Office | Otolaryngology | Ulysses Genao MD | | | 2019 | Visit | | [address] | | | | | | [address] [place], | | | | | | [place] [address] | | | | | | [phone] | | | | | | | | +--------+---------+ + + + | 02/15/ | Office | Internal Medicine | Alanis, | | | 2019 | Visit | | MD Petrona | | | | | | [address] [place] | | | | | | [place] [address] | | | | | | [phone] | | | | | | | | +--------+---------+ + + + documented as of this encounter Visit Diagnoses Not on filedocumented in this encounter"
--- OUTSIDE RECORDS SUMMARY | ~2019-11-17 | XMS | Encounter Summary ---
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 female [facility] Comprehensive [...] value in her continuing here at the [facility] Center until her bilateral [...] with any concerns or questions. DELFINA MOLINA [facility] Mail code CH 4P [facility] Health and [address] [address] Tasha Can - 03/31/2007 9:15 [...]
--- OUTSIDE RECORDS SUMMARY | ~2019-11-17 | XMS | Encounter Summary ---
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 [id number] Start of Care: 06/23/2006 Referring Provider: [...] patient has increased her walking time at [employer] to 30-40 minutes daily, no t able [...]
--- OUTSIDE RECORDS SUMMARY | ~2019-11-17 | XMS | Encounter Summary ---
Demographics + + + | Address | [address] | | | [place] [address] | + + + | Home Phone [...] Providers + +------+ + | Care Needle Grinder Name | Role | Phone | [...] as of this encounter Progress Notes Interface, City Supervisor In - 12/09/2005 2:08 AM PDT [id number] GEOVANNI Barnes [id number] Clinic Date: 11/26/2005 Clinic: General Surgery Clinic [...] with extensive workup. Prescription picked up at [facility] on November 25, 2005, for 50 oxycodone 5 mg. Melisa Thorne / SHARIF [id number] / [id number] / [id number] / [id number] Electronically signed by Kenisha Melton 12-05-2005 08:28:34 PM documented i n this encounter Plan of Treatment Not on filedocumented as of this encounter Visit Diagnoses Not on filedocumented in this encounter"
--- OUTSIDE RECORDS SUMMARY | ~2019-11-17 | XMS | Encounter Summary ---
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; | | | | [address] | | Pain in right Ankle | | | | Mailcode: CH15P | | and Foot; Right Hip | | | | Center for [facility] | | Region Pain; | | | | and Healing, | | 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 female [facility] Comprehensive Pain Center Return Visit Chief [...] Simons. We reviewed materials risk notice and [facility] opioid agreement. A ll questions [...] management and reduce opioid need. DELFINA MOLINA [facility] Pain Center Mail code CH 4P [facility] and [facility] [address] [facility] [address] Ailyn Foster 12/22/19 12:51 PM [...] + | Opioid dependence, continuous ([facility]) Opioid type dependence, continuous | + + [...]
--- OUTSIDE RECORDS SUMMARY | ~2019-11-17 | XMS | Encounter Summary ---
Demographics + + + | Address | [address] | | | [place] [address] | + + + | Home Phone [...] Providers + +------+ + | Care Sagger Preparer Name | Role | Phone | [...] + | 03/12/ | Refill | [facility] INTER[facility] | Alanis, | Medication Refill | | 2018 | | MEDICINE [address] [place] [address] | MD Petrona | | | | | [facility] | [address] [place] [address] | | | | | [place] [address] | [place] [address] | | | | | [phone] | [phone] | | | | | | | [...] | | | | | [place] [address] | | | | | | [phone] | | | | | | | | +--------+---------+ + + + | 12/20/ | Office | Otolaryngology | Ulysess Genao MD | | | 2019 | Visit | | [address] | | | | | | [address] [place], | | | | | | [place] [address] | | | | | | [phone] | | | | | | | | +--------+---------+ + + + | 02/15/ | Office | Internal Medicine | Alanis, | | | 2019 | Visit | | MD Petrona | | | | | | [address] [place] [address] [address] | | | | | | [place] [address] | | | | | | [phone] | | | | | | | | +--------+---------+ + + + documented as of this encounter Visit Diagnoses Not on filedocumented in this encounter"
--- OUTSIDE RECORDS SUMMARY | ~2019-11-17 | XMS | Encounter Summary ---
Demographics + + + | Address | [address] | | | [place] [address] | + + + | Home Phone [...] Team Providers + +------+ + | Care Sweeping Compound Blender Name | Role | Phone | [...] + + | 01/14/ | Refill | [facility] | Alanis, | Medication Refill | | 2017 | | MEDICINE [address] [place] [address] | MD Petrona | | | | | [facility] | [address] [place] [address] | | | | | [place] [address] | [place] [address] | | | | | [phone] | [phone] | | | | | | | [...] | | | | | [place] [address] | | | | | | [phone] | | | | | | | | +--------+---------+ + + + | 12/20/ | Office | Otolaryngology | Ulysses Genao MD | | | 2019 | Visit | | [address] | | | | | | [address] [place], | | | | | | [place] [address] | | | | | | [phone] | | | | | | | | +--------+---------+ + + + | 02/15/ | Office | Internal Medicine | Alanis, | | | 2019 | Visit | | MD Petrona | | | | | | [address] [place] [address] [address] | | | | | | [place] [address] | | | | | | [phone] | | | | | | | | +--------+---------+ + + + documented as of this encounter Visit Diagnoses Not on filedocumented in this encounter"
--- OUTSIDE RECORDS SUMMARY | ~2019-11-17 | XMS | Encounter Summary ---
[...] Providers + +------+ + | Care [place] Artist Name | Role | Phone | [...] as of this encounter Progress Notes Interface, Termite Exterminator In - 01/11/2005 6:26 PM PDT Referred [...] blindness. History was obtained from the patient, [facility] medical records, and two magnetic resonance scans [...] any point. She has been seen her flash designer in [facility], Dr. Lc Renteria, who by her [...] and fibromyalgia. SOCIAL HISTORY: Patient lives in [facility] with her eldest son. She supports [...] acute distress. She does have a right-sided English crutch which she uses to enter and [...] biceps, triceps, wrist extensors, finger extensors, hand professor of journalism, hip flexors and extensors, and ankle, plantar, and dorsiflexors as well as knee flexors and extensors. There is no pronator drift. Reflexes are 2+ and symmetrical at the biceps, triceps, brachioradialis, patellar, and ankle regions. Toes are downgoing to plantar stimulation. Light touch and tuning fork is within normal limits in the lower extremities. Kdybaz-bp-joat and fine finger movements are within normal [...] Amin M.D., Neurophthalmology cc: CRYSTAL CARTER M.D. [facility] [address] [facility]. [facility] [id number] signed by Interface, Termite Exterminator In at 2004 6:26 PM PDTdocumented in this encounter Plan of Treatment Not on filedocumented as of this encounter Visit Diagnoses Not on filedocumented in this encounter"
--- OUTSIDE RECORDS SUMMARY | ~2019-11-17 | XMS | Encounter Summary ---
Demographics + + + | Address | [address] | | | [place] [address] | + + + | Home Phone [...] Providers + +------+ + | Care Civil Preparedness Training Officer Name | Role | Phone | [...] as of this encounter Discharge Summaries Interface, Despatching And Receiving Clerk In - 08/30/2005 2:07 AM PST [id number] [place]NI [place] Admission Date: 07/24/2005 Discharge Date: [...] for an appointment. Joanna Ritchie M.D. / [id number] / [id number] / [id number] / Electronically signed by Chris Padgett 08-29-2005 03:28:23 PM documented i n this encounter Plan of Treatment Not on filedocumented as of this encounter Visit Diagnoses Not on filedocumented in this encounter"
--- OUTSIDE RECORDS SUMMARY | ~2019-11-17 | XMS | Encounter Summary ---
Demographics + + + | Address | [address] | | | [place] [address] | + + + | Home Phone [...] Team Providers + +------+ + | Care Dryer Operator Name | Role | Phone | [...]
--- OUTSIDE RECORDS SUMMARY | ~2019-11-17 | XMS | Encounter Summary ---
Demographics + + + | Address | [address] | | | [place] [address] | + + + | Home Phone [...] Team Providers + +------+ + | Care Correction Officer Reformatory Name | Role | Phone | + [...] + + | 06/30/ | Refill | [facility] | Alanis, | Medication Refill | | 2017 | | MEDICINE [address] [place] [address] | MD Petrona | | | | | [facility] | [address] [place] [address] | | | | | [place] [address] | [place] [address] | | | | | [phone] | [phone] | | | | | | | [...] | Visit | | [facility] [address] | | | | | | [address] [place] | | | | | | [place] [address] | | | | | | [phone] | | | | | | | | +--------+---------+ + + + | 12/20/ | Office | Otolaryngology | Ulysses Genao MD | | | 2019 | Visit | | [address] | | | | | | [address] [place], | | | | | | [place] [address] | | | | | | [phone] | | | | | | | | +--------+---------+ + + + | 02/15/ | Office | Internal Medicine | Alanis, | | | 2019 | Visit | | MD Petrona | | | | | | [address] [place] [address] [address] | | | | | | [place] [address] | | | | | | [phone] | | | | | | | | +--------+---------+ + + + documented as of this encounter Visit Diagnoses Not on filedocumented in this encounter"
--- OUTSIDE RECORDS SUMMARY | ~2019-11-17 | XMS | Encounter Summary ---
Demographics + + + | Address | [address] | | | [place] [address] | + + + | Home Phone [...] Providers + +------+ + | Care Card Feeder Name | Role | Phone | [...] Rehabilitatio | syndrome of | i, | [place] | | | | n | right | Petrona | [place], | | | | | shoulder | , MD [address] | [place] [address] | | | | | Procedures | [address] | Phone: | | | | | PT | [place], | [phone] | | | | | | [place] | Fax: | | | | | | [address] | [phone] | | | | | | Phone: | | | | | | | [phone] | | | | | | | Fax: | | | | | | | [phone] | | +--------+ + + + + [...] + + | 09/22/ | Office | [facility] | Alanis, | Impingement syndrome | | 2018 | Visit | MEDICINE [address] | MD Petrona | of right shoulder | | | | Street [place] | [address] [place] | (Primary Dx); Chest | | | | [place] [address] | [place] [address] | pain, unspecified | | | | [phone] | [phone] | type | | | | | [...] (See Comments) Confused and questionable for seizures Nuztnxhkrm-Wzfv-Varvnjju Cephalexin Hives Duloxetine Migraines and nausea Ketorolac Hives Morphine Swelling Ropinirole Hcl Hives Tramadol Hcl Nausea Only Dcdmsqhaqr-Tzvh-Uncwttvi Hives and Rash Ciprofloxacin Hives and Rash [...] Right 2 + Vw; Future - * [facility] Physical Therapy - AMB Referral; Future 2. Chest pain, unspecified type - nitroglycerin (NITROSTAT) 0.4 mg SL tablet; Place 1 tablet under the tongue every 5 minut es as needed for Chest pain. Dispense: 25 tablet; Refill: 3 FOLLOW-UP Return in about 6 months (around 03/24/2018). Note: Parts of this documentwere created using CoTweet speech recognition software. As a r esult, [...] | | | | | [place] [address] | | | | | | [phone] | | | | | | | | +--------+---------+ + + + | 12/20/ | Office | Otolaryngology | Ulysses Genao MD | | | 2019 | Visit | | [address] | | | | | | [address] [place], | | | | | | [place] [address] | | | | | | [phone] | | | | | | | | +--------+---------+ + + + | 02/15/ | Office | Internal Medicine | Alanis, | | | 2019 | Visit | | MD [place] | | | | | | [address] [place] | | | | | | [place] [address] | | | | | | [phone] | | | | | | | [...]
--- OUTSIDE RECORDS SUMMARY | ~2019-11-17 | XMS | Encounter Summary ---
Demographics + + + | Address | [address] | | | [place] [address] | + + + | Home Phone [...] Providers + +------+ + | Care Senior Investigator Name | Role | Phone | [...] + | 11/16/ | Refill | [facility] | Alanis, | Medication Refill | | 2019 | | MEDICINE [address] | MD Petrona | | | | | [facility] | [address] [place] [address] | | | | | [place] [address] | [place] [address] | | | | | [phone] | [phone] | | | | | | | [...] Visit | | [facility] [address] | | | | | | [address] [place] | | | | | | [place] [address] | | | | | | [phone] | | | | | | | | +--------+---------+ + + + | 12/20/ | Office | Otolaryngology | Ulysses Genao MD | | | 2019 | Visit | | [address] | | | | | | [address] [place], | | | | | | [place] [address] | | | | | | [phone] | | | | | | | | +--------+---------+ + + + | 02/15/ | Office | Internal Medicine | Alanis, | | | 2019 | Visit | | MD Petrona | | | | | | [address] [place] [address] [address] | | | | | | [place] [address] | | | | | | [phone] | | | | | | | | +--------+---------+ + + + documented as of this encounter Visit Diagnoses Not on filedocumented in this encounter"
--- OUTSIDE RECORDS SUMMARY | ~2019-11-17 | XMS | Encounter Summary ---
Demographics + + + | Address | [address] | | | [place] [address] | + + + | Home Phone [...] Team Providers + +------+ + | Care Intermediate Card Tender Name | Role | Phone | [...] | | | | [facility] Physician's | [place], [place] | | | | | [address] | [address] | | | | | [place], [place] | [phone] | | | | | [address] | | | | | | [phone] | | | +--------+ + + + [...] | + + + + + | [facility] DEPARTMENT OF | [address] | [place] [address] | | | PATHOLOGY | [address] | | | + + + + + | [facility] DEPARTMENT OF | [address] | [place] [address] | | | PATHOLOGY | [address] [...] | [facility] DEPARTMENT OF | [facility] | [place] [address] | | | PATHOLOGY | [address] | | | + + + + + | [facility] DEPARTMENT OF | [facility] | [place] [address] | | | PATHOLOGY | [address] [...] [facility] DEPARTMENT OF | [address] | [place] [address] | | | PATHOLOGY | [address] | | | + + + + + | [facility] DEPARTMENT OF | [address] [facility] | [place] [address] | | | PATHOLOGY | [address] [...] [facility] DEPARTMENT OF | [address] | [place], [place] [address] | | | PATHOLOGY | [address] | | | + + + + + | [facility] DEPARTMENT OF | [address] | [place] [address] | | | PATHOLOGY | [address] [...] [facility] | [address] | [place] [address] | | | PATHOLOGY | [address] | | | + + + + + | [facility] | [address] | [place] [address] | | | PATHOLOGY | [address] | | | + + + + + documented in this encounter Visit Diagnoses Not on filedocumented in this encounter"
--- OUTSIDE RECORDS SUMMARY | ~2019-11-17 | XMS | Encounter Summary ---
Demographics + + + | Address | [address] | | | [place] [address] | + + + | Home Phone [...] Providers + +------+ + | Care Supervisor Broadloom Name | Role | Phone | + [...] | | | Mailcode: PV240 | [place] [address] | | | | | [facility] | [phone] | | | | | [place], [place] | | | | | | [address] | | | | | | [phone] | | | +--------+ + + + [...]
--- OUTSIDE RECORDS SUMMARY | ~2019-11-17 | XMS | Encounter Summary ---
Demographics + + + | Address | [address] | | | [place] [address] | + + + | Home Phone [...] +------+ + | Care Director Of Digital Technology Name | Role | Phone | [...] | | [facility] | [place], [place] | | | | | Pavilion [address] | [address] | | | | | [address] | [phone] | | | | | [facility] | | | | | | Physician's | | | | | | Pavilion [place], | | | | | | [place] [address] | | | | | | [phone] | | | +--------+ + + + [...]
--- OUTSIDE RECORDS SUMMARY | ~2019-11-17 | XMS | Encounter Summary ---
Demographics + + + | Address | [address] | | | [place] [address] | + + + | Home Phone [...] Team Providers + +------+ + | Care Agriculture Intern Name | Role | Phone | [...] Rd | | | | | | [place], [place] | | | | | | [address] | | | +--------+ + + + [...]
--- OUTSIDE RECORDS SUMMARY | ~2019-11-17 | XMS | Encounter Summary ---
Demographics + + + | Address | [address] | | | [place] [address] | + + + | Home Phone [...] Providers + +------+ + | Care Well Reactivator Operator Name | Role | Phone | + +------+ + | Sulaiman Carrera MD | PCP | | + +------+ + Encounter Details +--------+ + + + + | Date | Type | Department | Care Team | Description | +--------+ + + + + | 01/29/ | Ancillary | Registration [id number] | Beto Meeks MD | | | 2005 | Registratio | [facility] | [address] | | | | n | [place] Mailcode: RPB07 | [place], [place] | | | | | [place], [place] | [address] | | | | | [address] | [phone] | | | | | [phone] | | | +--------+ + + + [...] | | | | Test performed by [facility] | | | | | [...] [facility] | [address] | [place], [place] | | | UN[facility] | | [address] | | + + + + + [...] | uIU/ml | | | | | [facility] [...] + + + | [facility] | [address] | [place] [address] | | | LABORATORY | | | [...] BASO # | 0.0 | <0.3 | [facility] | | | | | | DEPARTMENT [...] | + + + + + | [facility] DEPARTMENT OF | [address] [facility] | [place] [address] | | | PATHOLOGY | [address] | | | + + + + + | [facility] DEPARTMENT OF | [address] [facility] | [place] [address] | | | PATHOLOGY | [address] [...] DEPARTMENT OF | [address] | [place], [place] [address] | | | PATHOLOGY | [address] | | | + + + + + | [facility] DEPARTMENT OF | [address] | [place] [address] | | | PATHOLOGY | [address] [...] Performed At | + + + | [id number] Estimated GFR > 60 mL/min/1.73 sq m if non- | [facility] | | [id number] Estimated GFR > 60 mL/min/1.73 sq m [...] | + + + + + | [facility] DEPARTMENT OF | [address] | [place] [address] | | | PATHOLOGY | [address] | | | + + + + + | [facility] DEPARTMENT OF | [address] | [place] [address] | | | PATHOLOGY | [address] | | | + + + + + documented in this encounter Visit Diagnoses Not on filedocumented in this encounter"
--- OUTSIDE RECORDS SUMMARY | ~2019-11-17 | XMS | Encounter Summary ---
Demographics + + + | Address | [address] | | | [place] [address] | + + + | Home Phone [...] Providers + +------+ + | Care Floor And Wall Applier Liquid Name | Role | Phone | + +------+ + | Sulaiman Carrera MD | PCP | | + +------+ + Encounter Details +--------+ + + + + | Date | Type | Department | Care Team | Description | +--------+ + + + + | 06/12/ | Telephone | [facility] | Chris Padgett, | | | 2008 | | [place] [address] | [address] [facility] | | | | | Bethanie Mailcode: CH4S | [address] | | | | | [facility] | [place], [place] | | | | | and Healing, | [address] | | | | | [facility] 1, 6th | [phone] | | | | | Floor [place], [place] | | | | | | [address] | | | | | | [phone] | | | +--------+ + + + [...]
--- OUTSIDE RECORDS SUMMARY | ~2019-11-17 | XMS | Encounter Summary ---
Demographics + + + | Address | [address] | | | [place] [address] | + + + | Home Phone [...] Team Providers + +------+ + | Care Operational Assistant Name | Role | Phone | + +------+ + PCP | Unavailable | + +------+ + Encounter Details +--------+ + + + + | Date | Type | Department | Care Team | Description | +--------+ + + + + | 07/31/ | Hospital | [facility] | Ruben Tobias | | | 2005 | Encounter | MED CTR SLEEP | MD Raj[address] | | | | | [place] [address] | [address] [facility] | | | | | [place], [place] | [place] [address] | | | | | [address] | [phone] | | | | | [phone] | | | +--------+ + + + [...] | | | | | [place] [address] | | | | | | [phone] | | | | | | | | +--------+---------+ + + + | 12/20/ | Office | Otolaryngology | Ulysses Genao MD | | | 2019 | Visit | | [address] | | | | | | [address] [place], | | | | | | [place] [address] | | | | | | [phone] | | | | | | | | +--------+---------+ + + + | 02/15/ | Office | Internal Medicine | Alanis, | | | 2019 | Visit | | MD Petrona | | | | | | [address] [place] | | | | | | [place] [address] | | | | | | [phone] | | | | | | | | +--------+---------+ + + + documented as of this encounter Visit Diagnoses Not on filedocumented in this encounter"
--- OUTSIDE RECORDS SUMMARY | ~2019-11-17 | XMS | Encounter Summary ---
Demographics + + + | Address | [address] | | | [place] [address] | + + + | Home Phone [...] Team Providers + +------+ + | Care Cabinet Abrasive Sandblaster Name | Role | Phone | + +------+ + | Sulaiman Carrera MD | PCP | | + +------+ + Encounter Details +--------+ + + + + | Date | Type | Department | Care Team | Description | +--------+ + + + + | 01/02/ | Ancillary | Registration 3181 | Beto Meeks MD | | | 2004 | Registratio | [facility] | [address] | | | | n | [address] Mailcode: RPB07 | [place], [place] | | | | | [place], [place] | [address] | | | | | [address] | [phone] | | | | | [phone] | | | +--------+ + + + [...] DEPARTMENT OF | [address] | [place] [address] | | | PATHOLOGY | [address] | | | + + + + + | [facility] DEPARTMENT OF | [address] | [place] [address] | | | PATHOLOGY | [address] [...] [facility] DEPARTMENT OF | [address] [facility] | [place] [address] | | | PATHOLOGY | [address] | | | + + + + + | [facility] DEPARTMENT OF | [address] [facility] | [place] [address] | | | PATHOLOGY | [address] [...] | + + + + + | [facility] | [address] | [place] [address] | | | LABORATORY | | | | + + + + + documented in this encounter Visit Diagnoses Not on filedocumented in this encounter"
--- OUTSIDE RECORDS SUMMARY | ~2019-11-17 | XMS | Encounter Summary ---
Demographics + + + | Address | [address] | | | [place] [address] | + + + | Home Phone [...] Team Providers + +------+ + | Care Plastering Contractor Name | Role | Phone | [...] | phalanx of | [address] | [address] | | | | | left great | [place], | Phone: | | | | | toe, initial | [place] | [phone] | | | | | encounter | [address] | Fax: | | | | | | Phone: | [phone] | | | | | | [phone] | | | | | | | Fax: | | | | | | | [phone] | | + + + + + + + Reason for Visit + + + | Reason | Comments | + + + | Results, Imaging | | + + + Encounter Details +--------+ + + + + | Date | Type | Department | Care Team | Description | +--------+ + + + + | 11/14/ | Telephone | [facility] INTER[facility] | Alanis, | Results, Imaging | | 2019 | | MEDICINE [address] | MD [place] | | | | | [facility] | [address] [facility] | | | | | [place] [address] | [place] [address] | | | | | [phone] | [phone] | | | | | | | [...] | | | | | [place] [address] | | | | | | [phone] | | | | | | | | +--------+---------+ + + + | 12/20/ | Office | Otolaryngology | Ulysses Genao MD | | | 2019 | Visit | | [address] | | | | | | [address] [place], | | | | | | [place] [address] | | | | | | [phone] | | | | | | | | +--------+---------+ + + + | 02/15/ | Office | Internal Medicine | EmmyAnjum, | | | 2019 | Visit | | MD [place] | | | | | | [address] [place] | | | | | | [place] [address] | | | | | | [phone] | | | | | | | [...]
--- OUTSIDE RECORDS SUMMARY | ~2019-11-17 | XMS | Encounter Summary ---
Demographics + + + | Address | [address] | | | [place] [address] | + + + | Home Phone [...] Team Providers + +------+ + | Care Compression Molding Machine Operator Name | Role | Phone [...] + + | 04/29/ | Telephone | [facility] INTER[facility] | Alanis, | Medication Refill | | 2017 | | MEDICINE [address] [place] [address] | MD Petrona | Assistance | | | | [facility] | [address] [place] [address] | | | | | [place] [address] | [place] [address] | | | | | [phone] | [phone] | | | | | | | [...] | | | | | [place] [address] | | | | | | [phone] | | | | | | | | +--------+---------+ + + + | 12/20/ | Office | Otolaryngology | Ulysses Genao MD | | | 2019 | Visit | | [address] | | | | | | [address] [place] | | | | | | [place] [address] | | | | | | [phone] | | | | | | | | +--------+---------+ + + + | 02/15/ | Office | Internal Medicine | Alanis, | | | 2019 | Visit | | MD [place]ron[place] | | | | | | [address] | | | | | | [place] [address] | | | | | | [phone] | | | | | | | | +--------+---------+ + + + documented as of this encounter Visit Diagnoses Not on filedocumented in this encounter"
--- OUTSIDE RECORDS SUMMARY | ~2019-11-17 | XMS | Encounter Summary ---
Demographics + + + | Address | [address] | | | [place] [address] | + + + | Home Phone [...] Providers + +------+ + | Care Support Team Member Name | Role | Phone | [...] | [facility] [address] | John [facility] | Pre-Operative | | | | [address] | [facility] | Examination (Primary | | | | Mailcode: [id number] | [address] | Dx) | | | | [facility] | [address] [place], | | | | | [place], [place] | [place] [address] | | | | | [address] | [phone] | | | | | [phone] | | | +--------+---------+ + + + [...] surgeries scheduled to take place on the fenwick at the [facility]: Surgeries scheduled in the [facility] ([address] [place] [address]): registration is located on the 4th floor of [facility] (Day Surgery). Surgeries scheduled in the [facility]: registration is located on the 9th floor. Surgeries scheduled in [facility]: registration is located on the 6th floor. Surgeries scheduled in the [facility]: registration is located i n the [facility] on the first floor. For surgeries scheduled to take place at the [facility]: registration is l ocated on the [...] you use specialized medical equipment at h [facility], please check with your provider before bringing [...] surgeries scheduled to take place on the fenwick at the [facility]: Surgeries scheduled in the [facility] ( North): registration is located on the 4th floor of [facility] (Day Surgery). Surgeries scheduled in the [facility]: registration is located on the 9th floor. Surgeries scheduled in [facility]: registration is located on the 6th floor. Surgeries scheduled in the [facility]: registration is located i n the [facility] on the first floor. For surgeries scheduled to take place at the [facility]: registration is l [...] you use specialized medical equipment at h [facility], please check with your provider before bringing [...] 08/2007 right knee Hx lumbar fusion 05/2008 [id number] with bone spur removals Hx appendectomy Hx [...] (Ciprofloxacin) Tramadol Morphine IM ( only in [facility]) made gut pain worse 08/27/06: Trial of oral MSIR caused leg swelling Clarithromycin Hives Mainly in the legs Kgnrayk-dmwmfzgxan-tbm-caff Balance problems Amitriptyline Grand mal seizures Fioricet W/codeine (Kpn-snnmvqmzss-ngoiixuqze-caf) FAMILY HISTORY: Family History Problem Relation Cancer [...] | | | DEPARTMENT | | | [place] | | | OF | | | [...] + | [facility] | [address] | [place] [address] | | | PATHOLOGY | [address] | | | + + + + + | [facility] DEPARTMENT OF | [address] | [place] [address] | | | PATHOLOGY | [address] [...] DEPARTMENT OF | [address] | [place] [address] | | | PATHOLOGY | [address] | | | + + + + + | [facility] | [address] | [place] [address] | | | PATHOLOGY | [address] | | | + + + + + documented in this encounter Visit Diagnoses + + | Diagnosis | + + | Other specified pre-operative examination - Primary | + + documented in this encounter
--- OUTSIDE RECORDS SUMMARY | ~2019-11-17 | XMS | Encounter Summary ---
Demographics + + + | Address | [address] | | | [place] [address] | + + + | Home Phone [...] Team Providers + +------+ + | Care Icing Mixer Name | Role | Phone | [...] + + | 05/01/ | Refill | [facility] | Alanis, | Medication Refill | | 2017 | | MEDICINE [address] [place] [address] | MD [place] | | | | | [facility] | [address] [place] [address] | | | | | [place] [address] | [place] [address] | | | | | [phone] | [phone] | | | | | | | [...] | | | | | [place] [address] | | | | | | [phone] | | | | | | | | +--------+---------+ + + + | 12/20/ | Office | Otolaryngology | Ulysses Genao MD | | | 2019 | Visit | | [address] | | | | | | [address] [place], | | | | | | [place] [address] | | | | | | [phone] | | | | | | | | +--------+---------+ + + + | 02/15/ | Office | Internal Medicine | Alanis, | | | 2019 | Visit | | MD [place]ron[place] | | | | | | [address] [place] [address] [address] | | | | | | [place] [address] | | | | | | [phone] | | | | | | | | +--------+---------+ + + + documented as of this encounter Visit Diagnoses Not on filedocumented in this encounter"
--- OUTSIDE RECORDS SUMMARY | ~2019-11-17 | XMS | Encounter Summary ---
Demographics + + + | Address | [address] | | | [place] [address] | + + + | Home Phone [...] Providers + +------+ + | Care Clinical Sales Consultant Name | Role | Phone [...] as of this encounter Progress Notes Interface, Refrigerating Engineer Head In - 01/12/2005 6:32 AM PDTClinic Date: [...] 4 months. Caitlin Rivera M.S., F.N.P. / [id number] / [id number] / [id number] / [id number] cc: Pedrito Gutierrez M.D. [address] [place], [place] [address]Ixwhnmbigdpekt signed by Interface, Refrigerating Engineer Head In at 01/12/2005 6:3 2 AM PDTdocumented in this encounter Plan of Treatment Not on filedocumented as of this encounter Visit Diagnoses Not on filedocumented in this encounter"
--- OUTSIDE RECORDS SUMMARY | ~2019-11-17 | XMS | Encounter Summary ---
Demographics + + + | Address | [address] | | | [place] [address] | + + + | Home Phone [...] Team Providers + +------+ + | Care Hydrography Teacher Name | Role | Phone | [...] | 2006 | Visit | [facility] | [address] [place] | (Primary Dx); DJD | | | | for Health and | [place], [place] | (Degenerative Joint | | | | Healing [address] | [address] | Disease) of Left | | | | Ave Mailcode: | [phone] | Knee | | | | CH12A [facility] | | | | | | Health and Healing, | | | | | | [facility] | | | | | | [place], [place] | | | | | | [address] | | | | | | [phone] | | | +--------+---------+ + + + [...] note might be different from lesli gomez. [facility] Sports Medicine Clinic 09/23/2006 Belinda Meehan [...] a gastri c bypass and is much bonding agent now. She is doing PT as this point. With some benefit. She is concerned because she now has some poppin mahesh dlocking symptoms and wants to know if there si something that plant physiology teacher be done w ith a scope to [...] (ciprofloxacin) Tramadol Morphine IM ( only in [facility]) made gut pain worse 08/27/06: Trial [...] the MRI. Ramon Ibarra M.D. Sports Medicine [facility] Orthopaedics and Rehabilitation [address], [place] [address] [phone] documented in this encoun ter Plan of [...]
--- OUTSIDE RECORDS SUMMARY | ~2019-11-17 | XMS | Encounter Summary ---
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); | | | | Building | | Major Depressive | | | | Floor [place], [place] | | Disorder, Recurrent | | | | [address] | | Episode, Moderate | | | | [phone] | | ([facility]); Adjustment | | | | [...] Molly Meehan is a 46 y.o. female [facility] Comprehensive [...] two weeks. 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 Fentanyl patch 25mcg/hr Q72hr 3. [place] 10/325 NTE 4 per day 4 Continue [...] weeks or sooner if needed. DELFINA MOLINA [facility] Comprehensive Pain Center Mail code CH 4P [facility] and [facility] [address] [facility] [address] Tasha Can - 11/11/2006 9:29 AM PDTCMA [...]
--- OUTSIDE RECORDS SUMMARY | ~2019-11-17 | XMS | Encounter Summary ---
Demographics + + + | Address | [address] | | | [place] [address] | + + + | Home Phone [...] Team Providers + +------+ + | Care Gis Analyst Developer Name | Role | Phone | [...] Long-Term (Current) | | | | [facility] | | Use of Opioids; Left | | | | [address] | | Knee Pain; | | | | Mailcode: CH15P | | Arthroplasty of the | | | | [facility] | | Left Knee; DJD | | | | and Healing, | | (Degenerative Joint | | | | | | Disease) of Knee; | | | | Floor [place], [place] | | Fibromyalgia | | | | [address] | | syndrome 729.1; | | | | [phone] | | Adjustment Disorder | | | [...] value in her continuing here at the [facility] until her bilateral knee [...] with any concerns or questions. DELFINA MOLINA [facility] Mail code CH 4P [facility] and [address] [address] Tasha Can - 03/31/2007 9:15 [...]
--- OUTSIDE RECORDS SUMMARY | ~2019-11-17 | XMS | Encounter Summary ---
Demographics + + + | Address | [address] | | | [place] [address] | + + + | Home Phone [...] Providers + +------+ + | Care Operator Cavity Pump Name | Role | Phone | + [...] | | | | | Encounter | [place] | | | | | for | [address] | [address] | | | | | long-term | | Phone: | | | | | (current) | | [phone] | | | | | use of other | | Fax: | | | | | medications | | [phone] | | | | | LBP (low [...] Office | [facility] at [facility] | Lukasz Charles, | Major depressive | | 2013 | Visit | [address] | PhD [address] | disorder, recurrent | | | | Mailcode: CH15P | [place], [place] | episode, moderate | | | | [place] for [facility] | [address] | ([facility]) (Primary Dx); | | | | and Healing, | [phone] | LBP (low back pain); | | | | | | Adjustment disorder | | | | Floor [place], [place] | | with anxiety | | | | [address] | | | | | | [phone] | | | +--------+---------+ + + + [...] an appropriate candidate for a stimulator. Diagnosis: [place] I: 1. (296.32) Major depressive disorder, recurrent, moderate. 2. (309.24) Adjustment disorder with anxiety. [place] II: Deferred [place] III: abdominal pain, migraine headache, low back pain, fibromyalgia. [place] IV: low finances [place] V: GAF 55-60 Plan: return in 1 month. Check mood, pain, activity, stress management. Ask about spinal cord stimulator, any changes at home. Continue cognitive/behavioral therapy. Total time spent with patient was approximately 45 minutes. LUKASZ CHARLES PHD [facility] [address] [place] [address], [address] [place] [address] documented in this en counter Plan of [...]
--- OUTSIDE RECORDS SUMMARY | ~2019-11-17 | XMS | Encounter Summary ---
Demographics + + + | Address | [address] | | | [place] [address] | + + + | Home Phone [...] Providers + +------+ + | Care Deputy Assessor Name | Role | Phone | [...] | | MD [address] | [place] [address] | | | | | | [address] | Phone: | | | | | | [place], | [phone] | | | | | | [place] | Fax: | | | | | | [address] | [phone] | | | | | | Phone: | | | | | | | [phone] | | | | | | | Fax: | | | | | | | [phone] | | +--------+ + + + + + Encounter Details +--------+---------+ + + + | Date | Type | Department | Care Team | Description | +--------+---------+ + + + | 10/18/ | Office | [facility] | Emmy-Kamlesh, | Obesity (BMI | | 2018 | Visit | GASTROENTEROLOGY | MD Petrona | 30.0-34.9) (Primary | | | | [address] [place] | [address] [place] | Dx); Nausea; Dumping | | | | [address] [place], [place] | [place] [address]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; 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); | | | | [phone] | | Gastroesophageal | | | | | Luther Brito MD | reflux disease, | | | | | [address] | esophagitis presence | | | | | [place], [place] | not specified | | | | | [address] | | | | | | [phone] | | | | | | | [...] | [facility] [address] | | | | | [address] [place] | | | | | | [place] [address] | | | | | | [phone] | | | | | | | | +--------+---------+ + + + | 12/20/ | Office | Otolaryngology | Ulysses Genao MD | | | 2019 | Visit | | [address] | | | | | | [address] [place], | | | | | | [place] [address] | | | | | | [phone] | | | | | | | | +--------+---------+ + + + | 02/15/ | Office | Internal Medicine | Alanis, | | | 2019 | Visit | | MD Petrona | | | | | | [address] | | | | | | [place] [address] | | | | | | [phone] | | | | | | | [...]
--- OUTSIDE RECORDS SUMMARY | ~2019-11-17 | XMS | Encounter Summary ---
Demographics + + + | Address | [address] | | | [place] [address] | + + + | Home Phone [...] Providers + +------+ + | Care Waste Baler Name | Role | Phone | [...]
--- OUTSIDE RECORDS SUMMARY | ~2019-11-17 | XMS | Encounter Summary ---
Demographics + + + | Address | [address] | | | [place] [address] | + + + | Home Phone [...] Providers + +------+ + | Care Global Position System Technician Name | Role | Phone | [...] + | 06/26/ | Telephone | [facility] | Alanis, | ER Follow-up | | 2017 | | MEDICINE [address] [place] [address] | MD Petrona | | | | | [place] | [address] [place] [address] | | | | | [place] [address] | [place] [address] | | | | | [phone] | [phone] | | | | | | | [...] | | | | | [place] [address] | | | | | | [phone] | | | | | | | | +--------+---------+ + + + | 12/20/ | Office | Otolaryngology | Ulysses Genao MD | | | 2019 | Visit | | [address] [place] | | | | | | [address] [place], | | | | | | [place] [address] | | | | | | [phone] | | | | | | | | +--------+---------+ + + + | 02/15/ | Office | Internal Medicine | Alanis, | | | 2019 | Visit | | MD Petrona | | | | | | [address] | | | | | | [place] [address] | | | | | | [phone] | | | | | | | | +--------+---------+ + + + documented as of this encounter Visit Diagnoses Not on filedocumented in this encounter"
--- OUTSIDE RECORDS SUMMARY | ~2019-11-17 | XMS | Encounter Summary ---
Demographics + + + | Address | [address] | | | [place] [address] | + + + | Home Phone [...] Team Providers + +------+ + | Care Document Photographer Name | Role | Phone | [...] + + | 10/16/ | Telephone | [facility] | Alanis, | Illness | | 2020 | | MEDICINE [address] | MD Petrona | | | | | [facility] | [address] [facility] | | | | | [place] [address] | [place] [address] | | | | | [phone] | [phone] | | | | | | | [...] | | | | | [place] [address] | | | | | | [phone] | | | | | | | | +--------+---------+ + + + | 12/20/ | Office | Otolaryngology | Ulysses Genao MD | | | 2019 | Visit | | [address] [place] | | | | | | [address] [place], | | | | | | [place] [address] | | | | | | [phone] | | | | | | | | +--------+---------+ + + + | 02/15/ | Office | Internal Medicine | Alanis, | | | 2019 | Visit | | MD Petroan | | | | | | [address] [place] | | | | | | [place] [address] | | | | | | [phone] | | | | | | | | +--------+---------+ + + + documented as of this encounter Visit Diagnoses Not on filedocumented in this encounter"
--- OUTSIDE RECORDS SUMMARY | ~2019-11-17 | XMS | Encounter Summary ---
Demographics + + + | Address | [address] | | | [place] [address] | + + + | Home Phone [...] Providers + +------+ + | Care Poultry Breeder Name | Role | Phone | [...] | | | Metabolism | bypass | [address] | [address] | | | | | Hypovitamino | [address], | Ave | | | | | sis D [address] | [address] | [place], [place] | | | | | nutritional | [place] | [address] | | | | | deficiency | [address] | Phone: | | | | | Other | Phone: | [phone] | | | | | protein-jose manuel | [phone] | Fax: | | | | | nick | Fax: | [phone] | | | | | malnutrition | [phone] | | | | | | Weight | | | | | | | gain | | | | | | | Procedures | | | | | | | CONSULT TO | | | | | | | ENDO | | | | | | | [address] | | | | | | | [address] | | | +--------+--------+ + + + [...] | | | [facility] | [place], [place] | Dx); Hypothyroidism; | | | | [address] | [address] | Essential | | | | [address] | [phone] | hypertension 401.9; | | | | [facility] | | 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 Gets primary care in [place], [place] ([facility] Esther Cintron). Weight leveled out [...] replacement 08/2007 right knee Lumbar fusion 05/2008 L5-R1xpumfr with bone spur removals Appendectomy Cholecystectomy section [...] Hives Mainly in the legs Clindamycin Codeine Tlludha-Zcmsjqfwqr-Ayr-Caff Balance problems Fioricet W/Codeine (Znjyqikxsp-Ufekcngxth-Jab-Cod) Keflex (Cephalexin) Morphine IM ( only in [facility]) made gut pain worse 08/27/06: [...] Ly Allred MD R-2, Internal Medicine Pager: [phone] documented in this enco unter Plan of [...] | | If you are | | [place] | | | | screening for diabetes: [...] + | [facility] | [address] | [place] [address] | | | [place] | | | [...] [facility] | [address] | [place] [address] | | | SERVICES, SPECIAL | [address] [...] [facility] | [address] | [place] [address] | | | SERVICES, CORE | PARK [...] [facility] | [address] | [place] [address] | | | SERVICES, SPECIAL | KEAGAN [...] by | | | | | | [address] | | | | | | Abdiaziz Morales, [facility] | | | | | | [address] | | | | | | [phone][employer]. | | | | | | [facility], Get Gao, | | | | [...] [facility] | [address] | [place], [place] | | | UNIV P[facility] - INT[facility] | | [address] | | + + + + + [...] | + + + + + | [facility] | [address] | [place] [address] | | | SERVICES, SPECIAL | PARK [...] + | [facility] | [address] | [place] [address] | | | [place] | | | [...]
--- OUTSIDE RECORDS SUMMARY | ~2019-11-17 | XMS | Encounter Summary ---
Demographics + + + | Address | [address] | | | [place] [address] | + + + | Home Phone [...] Team Providers + +------+ + | Care National Investigative Producer Name | Role | Phone | [...] + + | 07/20/ | Telephone | [facility] | Alanis, | Immunizations | | 2019 | | MEDICINE [address] [place] [address] | MD Petrona | | | | | [facility] | [address] [place] [address] | | | | | [place] [address] | [place] [address] | | | | | [phone] | [phone] | | | | | | | [...] | | | | | [place] [address] | | | | | | [phone] | | | | | | | | +--------+---------+ + + + | 12/20/ | Office | Otolaryngology | Ulysses Genao MD | | | 2019 | Visit | | [address] | | | | | | [address] [place], | | | | | | [place] [address] | | | | | | [phone] | | | | | | | | +--------+---------+ + + + | 02/15/ | Office | Internal Medicine | Alanis, | | | 2019 | Visit | | MD Petrona | | | | | | [address] | | | | | | [place] [address] | | | | | | [phone] | | | | | | | [...]
--- OUTSIDE RECORDS SUMMARY | ~2019-11-17 | XMS | Encounter Summary ---
Demographics + + + | Address | [address] | | | [place] [address] | + + + | Home Phone [...] Team Providers + +------+ + | Care Relish Blender Name | Role | Phone | [...]
--- OUTSIDE RECORDS SUMMARY | ~2019-11-17 | XMS | Encounter Summary ---
Demographics + + + | Address | [address] | | | [place] [address] | + + + | Home Phone [...] Providers + +------+ + | Care Irrigation Engineer Name | Role | Phone | [...] | | | Stay [address] | [place], [place] | Examination; HTN | | | | [address] | [address] | (Hypertension); | | | | Mailcode: UHN65 | [phone] | Chronic Pain | | | | [facility] | | | | | | [address] [facility] [place] | | | | | | [address] | | | | | | [phone] | | | +--------+---------+ + + + [...] dietary restrictions or a bowel preparation. Your [facility] gical team will give you additional [...] PM please call your surgeons' office for [id number]-lf-eyqs. PARKING Parking for patients and visitors is available in the [facility] Parking structure located across from the emergency [...] ADVICE FOR DAY OF SURGERY: Remove nail costa rican from at least one fingernail (if applicable) [...] surgeries scheduled to take place on the hooper bay at the [facility]: Surgeries scheduled in the [facility] ([address] [place] [address]): registration is located on the 4th floor of [facility] (Day Surgery). Surgeries scheduled in the [facility]: registration is located on the 9th floor . For surgeries scheduled to take place at the [facility]: registration i s located on the 4th floor (Surgery Center). AVOID THESE MEDICATIONS FOR 7 DAYS BEFORE SURGERY PRODUCTS CONTAINING ASPIRIN [place], Anacin, Anexsia with Codeine, Len nos, Aspirin, Aspirin suppositories, Ascri ptin, Aspergum, Axotal, B-A-C, Baby Aspirin, Lucila, BC Powder, Bexophene, Buffaprin, Bufferi n, Buffinol, Cama-Arthritis Strength, Congespirin, Darfur, Coricidin, Damason, Darvon, Dristan , Anastasia-Gesic, Digel, Dolprin #3 Tablets, Donatab, Doxaphene, Duragesic, Easprin, Ecotrin, Dipika grin Forte, Emiprin, Emprazil, Equagesic, Equazine M, Excedrin, Fiogesic, Fiorgen PH, Fioric et, Fiorinal, 4-Way Cold Tablet Gemnisyn, Indocin, Liquprin, Lortab ASA, Magnaprin, Marnal, Meprobamate, Midol, Momentum, N orgesic, [place], Orphengesic, Pabalate, P-A-C, Percodan, Presalin, Robaxasil, Roxiprin, Bunny eto, Salocol SK-65 Compound, Sine-Aid, Sine-Off,, [place], Supac, Talwin Compound, Trigesic, Tolectin , Traiminicin, Vanquish, ZORprin, Zomax PRODUCTS CONTAINING IBUPROFEN Advil, Aleve, Haltran, Medipren, Midol, Motrin, Naproxyn, Nuprin, Rufen OTHER PRODUCTS WHICH MAY PROMOTE BLEEDING Vitamin E, Gingko Biloba, Marine Fatty Acids, [place]-3 Fish Oil Supplements documented in this encounter [...] | [facility] DEPARTMENT | [address] [facility] | [place] [address] | | | PATHOLOGY | [address] | | | + + + + + | [facility] DEPARTMENT OF | [address] [facility] | [place] [address] | | | PATHOLOGY | [address] [...] [facility] | [address] | [place] [address] | | | PATHOLOGY | [address] | | | + + + + + | [facility] DEPARTMENT | [address] | [place] [address] | | | PATHOLOGY | [address] [...] + | [facility] | [address] | [place] [address] | | | PATHOLOGY | [address] | | | + + + + + | [facility] | [address] | [place] [address] | | | PATHOLOGY | [address] [...] [facility] DE[facility] | [address] | [place] [address] | | | PATHOLOGY | [address] | | | + + + + + | [place] DEPARTMENT OF | [address] | [place] [address] | | | PATHOLOGY | [address] [...] view image for the detailed interpretation from [employer] results. | CARDIOLOGY | | | | + + + + + + + + | Performing | Address | City/State/Zipcode | Phone Number | | Organization | | | | + + + + + | [facility] | [address] | [place], [place] | | | CARDIOLOGY | [address] | [address] | | + + + + + | [facility] | [address] | [place], [place] | | | CARDIOLOGY | [address] | [address] | | + + + + + [...]
--- OUTSIDE RECORDS SUMMARY | ~2019-11-17 | XMS | Encounter Summary ---
Demographics + + + | Address | [address] | | | [place] [address] | + + + | Home Phone [...] Providers + +------+ + | Care Patternmaker All Around Name | Role | Phone | + [...] | | | [facility] | [place], [place] | | | | | [address] | [address] | | | | | [address] | [phone] | | | | | Physician's | | | | | | Pavilion, [facility] floor | | | | | | [place], [place] | | | | | | [address] | | | | | | [phone] | | | +--------+ + + + [...] | | | | | performed at [facility] | | | | | | [facility] | | | | | | Laboratory | | | | + + + + + + + + | Specimen | + + | | + + + + + + + | Performing | Address | City/State/Zipcode | Phone Number | | Organization | | | | + + + + + | [facility] | [address] | [place] [address] | | | LABORATORY | | | [...] | + + + + + | [facility] | [address] | [place] [address] | | | LABORATORY | | | [...] | [facility] | | | | | [facility] [...] + + + | [facility] | [address] | [place] [address] | | | LABORATORY | | | [...] | | | SERUM | performed by [facility] | | | | | | [facility] [...] | + + + + + | [facility] | [address] | [place] [address] | | | LABORATORY | | | [...] [place] DEPARTMENT OF | [address] [facility] | [place] [address] | | | PATHOLOGY | [address] | | | + + + + + | [place] DEPARTMENT OF | [address] [facility] | [place] [address] | | | PATHOLOGY | [address] [...] + + + + | [facility] | [facility] | [place] [address] | | | PATHOLOGY | [address] | | | + + + + + | [facility] | [facility] | [place] [address] | | | PATHOLOGY | [address] | | | + + + + + documented in this encounter Visit Diagnoses Not on filedocumented in this encounter"
--- OUTSIDE RECORDS SUMMARY | ~2019-11-17 | XMS | Encounter Summary ---
Demographics + + + | Address | [address] | | | [place] [address] | + + + | Home Phone [...] + +------+ + | Care Senior Principal Architect Name | Role | Phone | [...] | | Osteoporosis | i, | [address] | | | | | , | [place] | [place], | | | | | unspecified | , MD [address] | [place] [address] | | | | | osteoporosis | [address] | Phone: | | | | | type, | [place], | [phone] | | | | | unspecified | [place] | Fax: | | | | | pathological | [address] | [phone] | | | | | fracture | Phone: | | | | | | presence | [phone] | | | | | | Procedures | Fax: | | | | | | [place] | [phone] | | | | | | ZOLEDRONIC | | | | | | | ACID 1MG | | | +--------+ + + + + + Encounter Details +--------+ + + + + | Date | Type | Department | Care Team | Description | +--------+ + + + + | 08/18/ | Hospital | [facility] | Alanis, | Osteopenia, | | 2018 | Encounter | MED CTR OP INFUSION | MD Petrona | unspecified location | | | | [address] | [address] [facility] | | | | | [place] | [place] [address] | | | | | [address] | [phone] | | | | | [phone] | | | +--------+ + + + [...] Scr was from her lab draw at [facility]. Marlyn Anna Marie reports it was 0.81 [...] 2019 | Visit | | [facility] [address] | | | | [address] [place] | | | | | | [place] [id number] | | | | | | [phone] | | | | | | | | +--------+---------+ + + + | 12/20/ | Office | Otolaryngology | Ulysses Genao MD | | | 2019 | Visit | | [address] | | | | | | [address] [place], | | | | | | [place] [address] | | | | | | [phone] | | | | | | | | +--------+---------+ + + + | 02/15/ | Office | Internal Medicine | Alanis, | | | 2019 | Visit | | MD [place]ron[place] | | | | | | [address] [place] | | | | | | [place] [id number] | | | | | | [phone] | | | | | | | [...]
--- OUTSIDE RECORDS SUMMARY | ~2019-11-17 | XMS | Encounter Summary ---
Demographics + + + | Address | [address] | | | [place] [address] | + + + | Home Phone [...] Team Providers + +------+ + | Care Autism Specialist Name | Role | Phone | [...] | | | | | Encounter | [place], [place] | [place], [place] | | | | | for | [address] | [address] | | | | | long-term | | Phone: | | | | | (current) | | [phone] | | | | | use of other | | Fax: | | | | | medications | | [phone] | | | | | LBP (low [...] 06/23/ | Office | [facility] at [facility] | Lukasz Charles, | Major depressive | | 2013 | Visit | [address] | PhD [address] | disorder, recurrent | | | | Mailcode: CH15P | [place], [place] | episode, moderate | | | | [place] for [facility] | [address] | ([facility]) (Primary Dx); | | | | and Healing, | [phone] | LBP (low back pain); | | | | | | Adjustment disorder | | | | Floor [place], [place] | | with anxiety | | | | [address] | | | | | | [phone] | | | +--------+---------+ + + + [...] an appropriate candidate for a stimulator. Diagnosis: [place] I: 1. (296.32) Major depressive disorder, recurrent, moderate. 2. (309.24) Adjustment disorder with anxiety. [place] II: Deferred [place] III: abdominal pain, migraine headache, low back pain, fibromyalgia. [place] IV: low finances [place] V: GAF 55-60 Plan: return in 1 month. Check mood, pain, activity, stress management. Ask about spinal cord stimulator, any changes at home. Continue cognitive/behavioral therapy. Total time spent with patient was approximately 45 minutes. LUKASZ CHARLES PHD [facility] [address] [place] [address], [address] [place] [address] documented in this en counter Plan of [...]
--- OUTSIDE RECORDS SUMMARY | ~2019-11-17 | XMS | Encounter Summary ---
Demographics + + + | Address | [address] | | | [place] [address] | + + + | Home Phone [...] Team Providers + +------+ + | Care Mailmaster Name | Role | Phone | + [...] + | 01/04/ | Telephone | [facility] | Ulysses Genao MD | Other | | 2018 | | OTOLARYNGOLOGY [address] | [address] [facility] | | | | | [address] [facility] [address] | [address] [place], | | | | | [place], [place] | [place] [address] | | | | | [address] | [phone] | | | | | [phone] | | | +--------+ + + + [...] | | | | | [place] [address] | | | | | | [phone] | | | | | | | | +--------+---------+ + + + | 12/20/ | Office | Otolaryngology | Ulysses Genao MD | | | 2019 | Visit | | [address] | | | | | | [address] [place], | | | | | | [place] [address] | | | | | | [phone] | | | | | | | | +--------+---------+ + + + | 02/15/ | Office | Internal Medicine | Alanis, | | | 2019 | Visit | | MD [place]a | | | | | | [address] [place] | | | | | | [place] [address] | | | | | | [phone] | | | | | | | | +--------+---------+ + + + documented as of this encounter Visit Diagnoses Not on filedocumented in this encounter"
--- OUTSIDE RECORDS SUMMARY | ~2019-11-17 | XMS | Encounter Summary ---
Demographics + + + | Address | [address] | | | [place] [address] | + + + | Home Phone [...] Team Providers + +------+ + | Care Upsetter Setter Up Name | Role | Phone | [...] + + | 04/25/ | Telephone | [facility] | Alanis, | Paperwork; Pre-Op | | 2018 | | MEDICINE [address] [place] [address] | MD [place]rona | | | | | [facility] | [address] [place] [address] | | | | | [place] [address] | [place] [address] | | | | | [phone] | [phone] | | | | | | | [...] | | | | | [place] [address] | | | | | | [phone] | | | | | | | | +--------+---------+ + + + | 12/20/ | Office | Otolaryngology | Ulysses Genao MD | | | 2019 | Visit | | [address] | | | | | | [address] [place] | | | | | | [place] [address] | | | | | | [phone] | | | | | | | | +--------+---------+ + + + | 02/15/ | Office | Internal Medicine | Alanis, | | | 2019 | Visit | | MD [place] | | | | | | [address] [place] | | | | | | [place] [address] | | | | | | [phone] | | | | | | | | +--------+---------+ + + + documented as of this encounter Visit Diagnoses Not on filedocumented in this encounter"
--- OUTSIDE RECORDS SUMMARY | ~2019-11-17 | XMS | Encounter Summary ---
Demographics + + + | Address | [address] | | | [place] [address] | + + + | Home Phone [...] Providers + +------+ + | Care Sap Developer Name | Role | Phone | [...] | | | | | | | [place], [place] | | | | | | | [address] | | | | | | | Phone: | | | | | | | [phone] | | | | | | | Fax: | | | | | | | [phone] | +--------+--------+ + + + + Encounter [...] | | [facility] | [place], [place] | Metabolic syndrome | | | | [address] | [address] | X 250.80; Essential | | | | [address] | [phone] | hypertension 401.9; | | | | [facility] | | Fibromyalgia | | | | Physician's | | syndrome 729.1 | | | | [facility] [place], | | | | | | [place] [address] | | | | | | [phone] | | | +--------+---------+ + + + [...]
--- OUTSIDE RECORDS SUMMARY | ~2019-11-17 | XMS | Encounter Summary ---
Demographics + + + | Address | [address] | | | [place] [address] | + + + | Home Phone [...] | [place] [facility] | DATA MIGRATION YMA | | | 2011 | | Conversion Location | SR | | | | | [address] | | | | | | [place], [place] | | | | | | [address] | | | | | | [phone] | | | +--------+ + + + [...] | | | | | [place] [address] | | | | | | [phone] | | | | | | | | +--------+---------+ + + + | 12/20/ | Office | Otolaryngology | Ulysses Genao MD | | | 2019 | Visit | | [address] [place] | | | | | | [address] [place], | | | | | | [place] [address] | | | | | | [phone] | | | | | | | | +--------+---------+ + + + | 02/15/ | Office | Internal Medicine | Alanis, | | | 2019 | Visit | | MD Petrona | | | | | | [address] [place] | | | | | | [place] [address] | | | | | | [phone] | | | | | | | | +--------+---------+ + + + documented as of this encounter Visit Diagnoses Not on filedocumented in this encounter"
--- OUTSIDE RECORDS SUMMARY | ~2019-11-17 | XMS | Encounter Summary ---
Demographics + + + | Address | [address] | | | [place] [address] | + + + | Home Phone [...] Providers + +------+ + | Care Fly Worker Name | Role | Phone | [...] + + | 04/15/ | Telephone | [facility] | Alanis, | Other (Pain clinic) | | 2019 | | MEDICINE [address] [place] [address] | MD Petrona | | | | | [facility] | [address] [place] [address] | | | | | [place] [address] | [place] [address] | | | | | [phone] | [phone] | | | | | | | [...] | | | | | [place] [address] | | | | | | [phone] | | | | | | | | +--------+---------+ + + + | 12/20/ | Office | Otolaryngology | Ulysses Genao MD | | | 2019 | Visit | | [address] [place] | | | | | | [address] [place], | | | | | | [place] [id number] | | | | | | [phone] | | | | | | | | +--------+---------+ + + + | 02/15/ | Office | Internal Medicine | Alanis, | | | 2019 | Visit | | MD Petrona | | | | | | [address] [place] | | | | | | [place] [address] | | | | | | [phone] | | | | | | | | +--------+---------+ + + + documented as of this encounter Visit Diagnoses Not on filedocumented in this encounter"
--- OUTSIDE RECORDS SUMMARY | ~2019-11-17 | XMS | Encounter Summary ---
Demographics + + + | Address | [address] | | | [place] [address] | + + + | Home Phone [...] Providers + +------+ + | Care Continuous Drier Helper Name | Role | Phone | + +------+ + | Maria Esther Cintron MD | PCP | | + +------+ + Encounter Details +--------+ + + + + | Date | Type | Department | Care Team | Description | +--------+ + + + + | 04/19/ | Telephone | [facility] | Chris Padegtt, | | | 2007 | | [place] [address] | [address] [facility] | | | | | Bethanie Mailcode: CH4S | Naeem Mcrae | | | | [facility] | [place], [place] | | | | | and Healing, | [address] | | | | | Building , 6th | [phone] | | | | | Floor [place], [place] | | | | | | [address] | | | | | | [phone] | | | +--------+ + + + [...]
--- OUTSIDE RECORDS SUMMARY | ~2019-11-17 | XMS | Encounter Summary ---
Demographics + + + | Address | [address] | | | [place] [address] | + + + | Home Phone [...] Team Providers + +------+ + | Care Floorhand Name | Role | Phone | + [...]
--- OUTSIDE RECORDS SUMMARY | ~2019-11-17 | XMS | Encounter Summary ---
Demographics + + + | Address | [address] | | | [place] [address] | + + + | Home Phone [...] Providers + +------+ + | Care Structural Steel Equipment Erector Name | Role | Phone | [...] | | | [facility] | [place], [place] | Bypass Surgery November | | | | [address] | [address] | 2003; | | | | [address] | [phone] | Hypothyroidism; | | | | [facility] | | Essential | | | | Physician's | | hypertension 401.9; | | | | Pavilion [place], | | Iron Deficiency | | | | [place] [address] | | | | | | [phone] | | | +--------+---------+ + + + [...] (Ciprofloxacin) Tramadol Morphine IM ( only in [facility]) made gut pain worse 08/27/06: Trial [...] 300 mg) by oral route once daily xvahrbttdt-siptllglzhbhx-brauhvde (FIORICET) 50-325-40 mg Oral Tablet take 2 [...]
--- OUTSIDE RECORDS SUMMARY | ~2019-11-17 | XMS | Encounter Summary ---
Demographics + + + | Address | [address] | | | [place] [address] | + + + | Home Phone [...] Providers + +------+ + | Care Activities Officer Name | Role | Phone | [...] + + | 08/31/ | Refill | [facility] | Alanis, | Medication Refill | | 2017 | | MEDICINE [address] [place] [address] | MD Petrona | | | | | [facility] | [address] [place] [address] | | | | | [place] [address] | [place] [address] | | | | | [phone] | [phone] | | | | | | | [...] | | | | | [place] [address] | | | | | | [phone] | | | | | | | | +--------+---------+ + + + | 12/20/ | Office | Otolaryngology | Ulysses Genao MD | | | 2019 | Visit | | [address] [place] | | | | | | [address] [place], | | | | | | [place] [address] | | | | | | [phone] | | | | | | | | +--------+---------+ + + + | 02/15/ | Office | Internal Medicine | EmmyCarmen, | | | 2019 | Visit | | MD Petrona | | | | | | [address] | | | | | | [place] [address] | | | | | | [phone] | | | | | | | | +--------+---------+ + + + documented as of this encounter Visit Diagnoses + + | Diagnosis | + + | Chronic bilateral low back pain without sciatica | + + documented in this encounter"
--- OUTSIDE RECORDS SUMMARY | ~2019-11-17 | XMS | Encounter Summary ---
Demographics + + + | Address | [address] | | | [place] [address] | + + + | Home Phone [...] Providers + +------+ + | Care Patient Care Specialist Name | Role | Phone | [...] Management | Depressive | NIHARIKA Jean | Lkuasz Rhodes, PhD | | | | | disorder, | [address] | [address] | | | | | not | [address] | Ave | | | | | elsewhere | [place], [place] | [place], [place] | | | | | classified | [address] | [address] | | | | | Procedures | | Phone: | | | | | [place] | | [phone] | | | | | PSYCHOTHERPY | | Fax: | | | | | , OFFICE | | [phone] | | | | | (57-28) | | | +--------+--------+ + + + + Encounter Details +--------+---------+ + + + | Date | Type | Department | Care Team | Description | +--------+---------+ + + + | 07/15/ | Office | [facility] at [facility] | Lukasz Charles, | Major Depressive | | 2006 | Visit | [address] | PhD [address] | Disorder, Recurrent | | | | Mailcode: CH15P | [place], [place] | Episode, Moderate | | | | [facility] | [address] | ([facility]); Cervical | | | | and Healing, | [phone] | Spondylosis without | | | | Building | | Myelopathy; Migraine | | | | Floor [place], [place] | | Headache; | | | | [address] | | Adjustment Disorder | | | | [phone] | | with Anxiety | +--------+---------+ + [...] She appears to have good insight. Diagnosis: Highwood I: 1. (296.32) Major depressive disorder, recurrent, moderate. 2. (309.24) Adjustment disorder with anxiety. 3. 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 Highwood II: Deferred Highwood III: abdominal pain, migraine headache, low back pain. Highwood IV: low finances Highwood V: GAF 50 Plan: Return in 2 weeks. Check relaxation and activity. Check mood. Continue cognitive/behavio ral therapy. Total time spent with patient was approximately 50 minutes. LUKASZ CHARLES PHD [facility] [address] [place] [address] And [facility], [address]th [place] [address] documented in this [facility] Plan of Treatment + + +--------+ [...] | | | | ([facility]) Cervical | | | | | | Spondylosis without | | | | | | Myelopathy Migraine | | | | | | Headache | | | | | | Adjustment Disorder | | | | | | with Anxiety | | + + +--------+ + + | [place] BIOFEEDBACK | Procedures | Routin | Cervical [...]
--- OUTSIDE RECORDS SUMMARY | ~2019-11-17 | XMS | Encounter Summary ---
Demographics + + + | Address | [address] | | | [place] [address] [...] Team Providers + +------+ + | Care Grab Driver Name | Role | Phone | + +------+ + | Petrona Thapa | PCP | | | MD | | | + +------+ + Encounter Details +--------+ + + + + | Date | Type | Department | Care Team | Description | +--------+ + + + + | 09/01/ | Abstract | [facility] | Provider, | | | 2018 | | GASTROENTEROLOGY | MD Colin [address] | | | | | [address] [facility] | Sulma Boyd | | | | | [address] [place] | [place] [address] | | | | | [address] | | | | | | [phone] | | | +--------+ + + + [...] [facility] [address] | | | | | [address] [place] | | | | | | [place] [address] | | | | | | [phone] | | | | | | | | +--------+---------+ + + + | 12/20/ | Office | Otolaryngology | Ulysses Genao MD | | | 2019 | Visit | | [address] [place] | | | | | | [address] [place], | | | | | | [place] [address] | | | | | | [phone] | | | | | | | | +--------+---------+ + + + | 02/15/ | Office | Internal Medicine | Alanis, | | | 2019 | Visit | | MD Petrona | | | | | | [address] [place] | | | | | | [place] [address] | | | | | | [phone] | | | | | | | | +--------+---------+ + + + documented as of this encounter Visit Diagnoses Not on filedocumented in this encounter"
--- OUTSIDE RECORDS SUMMARY | ~2019-11-17 | XMS | Encounter Summary ---
Demographics + + + | Address | [address] | | | [place] [address] | + + + | Home Phone [...] Providers + +------+ + | Care Technical Engineer Name | Role | Phone | [...] + | 01/14/ | Refill | [facility] | Alanis, | Medication Refill | | 2017 | | MEDICINE [address] [place] [address] | MD Petrona | | | | | [facility] | [address] [place] [address] | | | | | [place] [address] | [place] [address] | | | | | [phone] | [phone] | | | | | | | [...] | | | | | [place] [address] | | | | | | [phone] | | | | | | | | +--------+---------+ + + + | 12/20/ | Office | Otolaryngology | Ulysses Genao MD | | | 2019 | Visit | | [address] [place] | | | | | | [address] [place], | | | | | | [place] [address] | | | | | | [phone] | | | | | | | | +--------+---------+ + + + | 02/15/ | Office | Internal Medicine | Alanis, | | | 2019 | Visit | | MD Petrona | | | | | | [address] [place] [address] [place] | | | | | | [place] [address] | | | | | | [phone] | | | | | | | | +--------+---------+ + + + documented as of this encounter Visit Diagnoses Not on filedocumented in this encounter"
--- OUTSIDE RECORDS SUMMARY | ~2019-11-17 | XMS | Encounter Summary ---
Demographics + + + | Address | [address] | | | [place] [address] | + + + | Home Phone [...] + + | 12/10/ | Telephone | [facility] | Alanis, | Lab Results | | 2017 | | MEDICINE [address] [place] [address] | MD Petrona | | | | | [facility] | [address] [place] [address] | | | | | [place] [address] | [place] [address] | | | | | [phone] | [phone] | | | | | | | [...] | | | | | [place] [address] | | | | | | [phone] | | | | | | | | +--------+---------+ + + + | 12/20/ | Office | Otolaryngology | Ulysses Genao MD | | | 2020 | Visit | | [address] [place] | | | | | | [address] [place], | | | | | | [place] [address] | | | | | | [phone] | | | | | | | | +--------+---------+ + + + | 02/15/ | Office | Internal Medicine | Alanis, | | | 2019 | Visit | | MD Petrona | | | | | | [address] [place] | | | | | | [place] [address] | | | | | | [phone] | | | | | | | | +--------+---------+ + + + documented as of this encounter Visit Diagnoses Not on filedocumented in this encounter"
--- OUTSIDE RECORDS SUMMARY | ~2019-11-17 | XMS | Encounter Summary ---
Demographics + + + | Address | [address] | | | [place] [address] | + + + | Home Phone [...] + +------+ + | Care Real Estate Sales Supervisor Name | Role | Phone [...] + + | 05/25/ | Refill | [facility] | Alanis, | Medication Refill | | 2016 | | MEDICINE [address] [place] [address] | MD Petrona | | | | | [facility] | [address] [place] [address] | | | | | [place] [address] | [place] [address] | | | | | [phone] | [phone] | | | | | | | [...] | | | | | [place] [address] | | | | | | [phone] | | | | | | | | +--------+---------+ + + + | 12/20/ | Office | Otolaryngology | Ulysses Genao MD | | | 2019 | Visit | | [address] [place] | | | | | | [address] [place], | | | | | | [place] [address] | | | | | | [phone] | | | | | | | | +--------+---------+ + + + | 02/15/ | Office | Internal Medicine | Alanis, | | | 2019 | Visit | | MD Petrona | | | | | | [address] [place] [address] [address] | | | | | | [place] [address] | | | | | | [phone] | | | | | | | | +--------+---------+ + + + documented as of this encounter Visit Diagnoses Not on filedocumented in this encounter"
--- OUTSIDE RECORDS SUMMARY | ~2019-11-17 | XMS | Encounter Summary ---
Demographics + + + | Address | [address] | | | [place] [address] | + + + [...] Providers + +------+ + | Care Closing Specialist Name | Role | Phone | + +------+ + PCP | Unavailable | + +------+ + Encounter Details +--------+ + + + + | Date | Type | Department | Care Team | Description | +--------+ + + + + | 11/22/ | Results | | Other, Faculty | | | 2004 | Only | | [phone] | | +--------+ + + + + [...] + | Ordered by SYEDA MCKENZIE | [facility] | | | DEPARTMENT OF | | | PATHOLOGY | + + + + + + + + | Performing | Address | City/State/Zipcode | Phone Number | | Organization | | | | + + + + + | [facility] DEPARTMENT OF | [address] [facility] | [place] [address] | | | PATHOLOGY | [address] | | | + + + + + | [place] DEPARTMENT OF | [address] | [place] [address] | | | PATHOLOGY | [address] [...] [facility] DEPARTMENT | [address] [facility] | [place] [address] | | | PATHOLOGY | [address] | | | + + + + + | [facility] | [address] [facility] | [place] [address] | | | PATHOLOGY | [address] [...] + | [facility] | [address] [facility] | [place] [address] | | | PATHOLOGY | [address] | | | + + + + + | [facility] | [address] [facility] | [place] [address] | | | PATHOLOGY | [address] [...] DEPARTMENT OF | [address] | [place] [address] | | | PATHOLOGY | [address] | | | + + + + + | [facility] DEPARTMENT OF | [address] | [place] [address] | | | PATHOLOGY | [address] [...] DEPARTMENT OF | [address] | [place] [address] | | | PATHOLOGY | [address] | | | + + + + + | [facility] DEPARTMENT OF | [address] | [place] [address] | | | PATHOLOGY | [address] [...] HOSPITAL DEPARTMENT | [address] | [place] [address] | | | PATHOLOGY | [address] | | | + + + + + | [facility] DEPARTMENT OF | [address] | [place] [address] | | | PATHOLOGY | [address] | | | + + + + + documented in this encounter Visit Diagnoses Not on filedocumented in this encounter"
--- OUTSIDE RECORDS SUMMARY | ~2019-11-17 | XMS | Encounter Summary ---
Demographics + + + | Address | [address] | | | [place] [address] | + + + | Home Phone [...] Providers + +------+ + | Care Behavioral Medical Director Name | Role | Phone | [...] + + | 01/04/ | Telephone | [facility] | Ulysses Genao MD | Other | | 2018 | | OTOLARYNGOLOGY [address] | [address] [facility] | | | | | [address] [facility] [address] | [address] [place], | | | | | [place], [place] | [place] [address] | | | | | [address] | [phone] | | | | | [phone] | | | +--------+ + + + [...] | | | | | [place] [address] | | | | | | [phone] | | | | | | | | +--------+---------+ + + + | 12/20/ | Office | Otolaryngology | Ulysses Genao MD | | | 2019 | Visit | | [address] | | | | | | [address] [place], | | | | | | [place] [address] | | | | | | [phone] | | | | | | | | +--------+---------+ + + + | 02/15/ | Office | Internal Medicine | Alanis, | | | 2019 | Visit | | MD Petrona | | | | | | [address] [place] | | | | | | [place] [address] | | | | | | [phone] | | | | | | | | +--------+---------+ + + + documented as of this encounter Visit Diagnoses Not on filedocumented in this encounter"
--- OUTSIDE RECORDS SUMMARY | ~2019-11-17 | XMS | Encounter Summary ---
Demographics + + + | Address | [address] | | | [place] [address] | + + + | Home Phone [...] Providers + +------+ + | Care Community Relations Director Name | Role | Phone [...] + + | 05/14/ | Telephone | [facility] | Alanis, | Referral | | 2017 | | MEDICINE [address] [place] [address] | MD Petrona | | | | | [facility] | [address] [place] [address] | | | | | [place] [address] | [place] [address] | | | | | [phone] | [phone] | | | | | | | [...] | | | | | [place] [address] | | | | | | [phone] | | | | | | | | +--------+---------+ + + + | 12/20/ | Office | Otolaryngology | Ulysses Genao MD | | | 2019 | Visit | | [address] | | | | | | [address] [place], | | | | | | [place] [address] | | | | | | [phone] | | | | | | | | +--------+---------+ + + + | 02/15/ | Office | Internal Medicine | Alanis, | | | 2019 | Visit | | MD Petrona | | | | | | [address] | | | | | | [place] [address] | | | | | | [phone] | | | | | | | | +--------+---------+ + + + documented as of this encounter Visit Diagnoses Not on filedocumented in this encounter"
--- OUTSIDE RECORDS SUMMARY | ~2019-11-17 | XMS | Encounter Summary ---
Demographics + + + | Address | [address] | | | [place] [address] | + + + | Home Phone [...] + +------+ + | Care Assembly Line Supervisor Name | Role | Phone [...] [id number] | | | | | | [place], [place] | | | | | | [address] | | | | | | [phone] | | | +--------+ + + + [...]
--- OUTSIDE RECORDS SUMMARY | ~2019-11-17 | XMS | Encounter Summary ---
Demographics + + + | Address | [address] | | | [place] [address] | + + + | Home Phone [...] Team Providers + +------+ + | Care Import/Export Specialist Name | Role | Phone | [...] as of this encounter Progress Notes Interface, Ledge Man In - 01/12/2006 1:16 AM PDTCLINIC DATE: 05/24/2002 NEUROMUSC[facility] CLINIC PRIMARE CARE PROVIDER: Pedrito Gutierrez M.D., [place], [place]. REFERRING PROVIDER : Issac Meeks M.D., [facility]. REASON FOR CONSULTATION: Dr. 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 She was told she had carpal tunnel [...] use drugs. 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 She is applying for disability compensation. She lives in [facility] and is currently undergoing a divorce. [...] position sense throughout. Coordination: Fine finger movements, mjaktj-za-wqmu, rapid alternating movements, and swte-xg-ctal maneuvers are intact though zcggzz-kr-nugb is limited by poor depth perception due [...] Pete M.D. Neurology/Neuromuscular Fellow [employer] / HS [id number] / [id number] / [id number] / cc: Issac Meeks M.D. [facility] Pedrito Gutierrez M.D. [address] [place] [id number] signed by Interface, Ledge Man In at 01/12/2006 1:1 6 AM PDTdocumented in this encounter Plan of Treatment Not on filedocumented as of this encounter Visit Diagnoses Not on filedocumented in this encounter
--- OUTSIDE RECORDS SUMMARY | ~2019-11-17 | XMS | Encounter Summary ---
Demographics + + + | Address | [address] | | | [place] [address] | + + + | Home Phone [...] Team Providers + +------+ + | Care Reception Specialist Name | Role | Phone | [...] [place] | | | | | | [address] | | | | | | [phone] | | | +--------+ + + + [...] | | | | | [place] [address] | | | | | | [phone] | | | | | | | | +--------+---------+ + + + | 12/20/ | Office | Otolaryngology | Ulysses Genao MD | | | 2019 | Visit | | [address] | | | | | | [address] [place], | | | | | | [place] [address] | | | | | | [phone] | | | | | | | | +--------+---------+ + + + | 02/15/ | Office | Internal Medicine | Alanis, | | | 2019 | Visit | | MD Petrona | | | | | | [address] [place] | | | | | | [place] [address] | | | | | | [phone] | | | | | | | | +--------+---------+ + + + documented as of this encounter Visit Diagnoses Not on filedocumented in this encounter"
--- OUTSIDE RECORDS SUMMARY | ~2019-11-17 | XMS | Encounter Summary ---
Demographics + + + | Address | [address] | | | [place] [address] | + + + | Home Phone [...] Providers + +------+ + | Care Research Program Intern Name | Role | Phone | [...] Jayce Hartley | | | | | [facility] | [address] [place], | | | | | [address] | [place] [address] | | | | | Mailcode: CH15P | | | | | | [facility] | | | | | | and Healing, | | | | | | Building | | | | | | Floor [place], [place] | | | | | | [address] | | | | | | [phone] | | | +--------+ + + + [...]
--- OUTSIDE RECORDS SUMMARY | ~2019-11-17 | XMS | Encounter Summary ---
Demographics + + + | Address | [address] | | | [place] [address] | + + + | Home Phone [...] Team Providers + +------+ + | Care Quarry Plug And Feather Driller Name | Role | Phone | [...] + + | 04/04/ | Telephone | [facility] | Alanis, | Toe Fracture | | 2019 | | MEDICINE [address] [place] [address] | MD Petrona | | | | | [facility] | [address] [place] [address] | | | | | [place] [address] | [place] [address] | | | | | [phone] | [phone] | | | | | | | [...] | | | | | [place] [address] | | | | | | [phone] | | | | | | | | +--------+---------+ + + + | 12/20/ | Office | Otolaryngology | Ulysses Genao MD | | | 2019 | Visit | | [address] | | | | | | [address] [place], | | | | | | [place] [address] | | | | | | [phone] | | | | | | | | +--------+---------+ + + + | 02/15/ | Office | Internal Medicine | Alanis, | | | 2019 | Visit | | MD Petrona | | | | | | [address] | | | | | | [place] [address] | | | | | | [phone] | | | | | | | | +--------+---------+ + + + documented as of this encounter Visit Diagnoses Not on filedocumented in this encounter"
--- OUTSIDE RECORDS SUMMARY | ~2019-11-17 | XMS | Encounter Summary ---
Demographics + + + | Address | [address] | | | [place] [address] | + + + | Home Phone [...] Providers + +------+ + | Care Equipment Coordinator Name | Role | Phone | [...] [address] | | | | | [facility] | [place], [place] | | | | | [address] | [address] | | | | | [address] | [phone] | | | | | [facility] | | | | | | Physician's | | | | | | Pavilion [place], | | | | | | [place] [address] | | | | | | [phone] | | | +--------+--------+ + + + [...]
--- OUTSIDE RECORDS SUMMARY | ~2019-11-17 | XMS | Encounter Summary ---
Demographics + + + | Address | [address] | | | [place] [address] | + + + | Home Phone [...] Providers + +------+ + | Care Diesel Dinkey Operator Name | Role | Phone | [...] + + | 04/06/ | Telephone | [facility] | Alanis, | Care Coordination | | 2017 | | MEDICINE [address] [place] [address] | MD Petrona | | | | | [facility] | [address] [place] [address] | | | | | [place] [address] | [place] [address] | | | | | [phone] | [phone] | | | | | | | [...] | | | | | [place] [address] | | | | | | [phone] | | | | | | | | +--------+---------+ + + + | 12/20/ | Office | Otolaryngology | Ulysses Genao MD | | | 2019 | Visit | | [address] [place] | | | | | | [address] [place], | | | | | | [place] [address] | | | | | | [phone] | | | | | | | | +--------+---------+ + + + | 02/15/ | Office | Internal Medicine | Alanis, | | | 2019 | Visit | | MD Petrona | | | | | | [address] [place] [address] [address] | | | | | | [place] [address] | | | | | | [phone] | | | | | | | | +--------+---------+ + + + documented as of this encounter Visit Diagnoses Not on filedocumented in this encounter"
--- OUTSIDE RECORDS SUMMARY | ~2019-11-17 | XMS | Encounter Summary ---
Demographics + + + | Address | [address] | | | [place] [address] | + + + | Home Phone [...] Providers + +------+ + | Care Automotive Heavy Mechanic Name | Role | Phone | [...] [address] | | | | | | [place], [place] | | | | | | [address] | | | | | | [phone] | | | +--------+ + + + [...]
--- OUTSIDE RECORDS SUMMARY | ~2019-11-17 | XMS | Encounter Summary ---
Demographics + + + | Address | [address] | | | [place] [address] | + + + | Home Phone [...] Providers + +------+ + | Care Residential Support Worker Name | Role | Phone [...] PHYSIATRY [address] | MD [address] | | | | | [address] | [place] | | | | | [place], [place] | [address] | | | | | [address] | | | | | | [phone] | | | +--------+ + + + [...] | [facility] [address] | | | | | | [address] [place] | | | | | | [place] [address] | | | | | | [phone] | | | | | | | | +--------+---------+ + + + | 12/20/ | Office | Otolaryngology | Ulysses Genao MD | | | 2019 | Visit | | [address] [place] | | | | | | [address] [place], | | | | | | [place] [address] | | | | | | [phone] | | | | | | | | +--------+---------+ + + + | 02/15/ | Office | Internal Medicine | Alanis, | | | 2019 | Visit | | MD Petrona | | | | | | [address] [place] | | | | | | [place] [address] | | | | | | [phone] | | | | | | | | +--------+---------+ + + + documented as of this encounter Visit Diagnoses Not on filedocumented in this encounter"
--- OUTSIDE RECORDS SUMMARY | ~2019-11-17 | XMS | Encounter Summary ---
Demographics + + + | Address | [address] | | | [place] [address] | + + + | Home Phone [...] Team Providers + +------+ + | Care Commodity Supervisor Name | Role | Phone | [...] Services | Therapy | Acute pain | [facility] | | | Required | | of right | Eliud, | PHYSICAL | | | | | shoulder | MD [address] | THERAPY [address] | | | | | Tear of | [address] | [place] | | | | | right | [place], | [place], [place] | | | | | supraspinatu | [place] | [address] | | | | | s tendon, | [address] | Phone: | | | | | initial | Phone: | [phone] | | | | | encounter | [phone] | Fax: | | | | | | Fax: | [phone] | | | | | | [phone] | | +--------+ + + + + [...] | | right | [address] | [address] Phone: | | | | | supraspinatu | [place], | [phone] | | | | | s tendon, | [place] | Fax: | | | | | initial | [address] | [phone] | | | | | encounter | Phone: | | | | | | | [phone] | | | | | | | Fax: | | | | | | | [phone] | | +--------+ + + + + + Encounter Details +--------+---------+ + + + | Date | Type | Department | Care Team | Description | +--------+---------+ + + + | 02/23/ | Office | [facility] | Lc Vail | Acute pain of right | | 2018 | Visit | ORTHOPEDIC SURGERY | MD [address] | shoulder; Tear of | | | | [address] [facility] | [facility] | right supraspinatus | | | | [place] | [place] [address] | tendon, initial | | | | [address] | [phone] | encounter | | | | [phone] | | | +--------+---------+ + + + [...] the shoulder. Try to hold the stretch [id number]. 3. Work up to ssfym6bjaw of this stretch,3times a day. Work up [...] ask your healthcare provider. Date Last Reviewed: 07/16/201719997289-6909 [facility]. [address] [place] [address], [place] [address]. All righ ts reserved. This information is not intended as a substitute for professional medical care. Always follow your healthcare professional's instructions. documented in this encounter Progress Notes Lc Vail MD - 02/23/2018 1:30 PM PDTFormatting of this note might be different fro m the original. [facility] HISTORY AND PHYSICAL EXAMINATION Pt. [...] worse as time goes on. She quit [employer] in 2013. Past Medical History: Past [...] Procedure: COLONOSCOPY; Surgeon: Luther Brito MD; Location: [facility] MEDICAL PROCEDURE UNIT DILATION AND CURETTAGE OF UTERUS ELBOW SURGERY FINGER TRIGGER RELEASE 2002 FINGER TRIGGER RELEASE 2009 GASTRIC BYPASS SURGERY 2004 HYSTERECTOMY 05/14/1980 JOINT REPLACEMENT Bilateral 2007,2008 KNEE ARTHROSCOPY 2005 LAPAROSCOPY 01/27/2015 LAPAROTOMY 2008 ROTATOR CUFF REPAIR 2005 SPINE SURGERY TONSILLECTOMY 1964 UPPER GASTROINTESTINAL ENDOSCOPY N/A 12/18/2017 Procedure: EGD; Surgeon: Luther Brito MD; Location: [facility] MEDICAL PROCEDURE UNIT Allergies: Allergies Allergen Reactions Codeine Sulfate Nausea Only Levofloxacin Hives, Itching and Rash Amitriptyline Hcl Other (See Comments) Confused and questionable for seizures Todsotjdvp-Dopg-Uloblcqs Hives and Rash Cephalexin Hives Ciprofloxacin Hives [...] 1. Acute pain of right shoulder * [facility] Physical Therapy - AMB Referral triamcinolone acetonide (KENALOG-40) 40 mg/mL injection 40 mg 2. Tear of right supraspinatus tendon, initial encounter * [facility] Physical Therapy - AMB Refe [...] injection. She is very symptomatic at the [facility] and states that she has a [...] made to ensure accuracy; however, inadvertent computerized welder/installer errors may be pre sent. I appreciate the opportunity to help with the management of this patient. Lc Vail MD [facility] umented in this encounter Plan of Treatment +--------+---------+ + + + | Date | Type | Specialty | Care Team | Description | +--------+---------+ + + + | 12/20/ | Office | Audiology | Elisabet Munson, MS | | | 2019 | Visit | | [facility] [address] | | | | | | [place] | | | | | | [place] [address] | | | | | | [phone] | | | | | | | | +--------+---------+ + + + | 12/20/ | Office | Otolaryngology | Ulysses Genao MD | | | 2019 | Visit | | [address] | | | | | | [address] [place], | | | | | | [place] [address] | | | | | | [phone] | | | | | | | | +--------+---------+ + + + | 02/15/ | Office | Internal Medicine | Alanis, | | | 2019 | Visit | | MD Petrona | | | | | | [address] [place] | | | | | | [place] [address] | | | | | | [phone] | | | | | | | [...]
--- OUTSIDE RECORDS SUMMARY | ~2019-11-17 | XMS | Encounter Summary ---
Demographics + + + | Address | [address] | | | [place] [address] | + + + | Home Phone [...] Providers + +------+ + | Care Lasting Room Machine Operator Name | Role | Phone [...] as of this encounter Progress Notes Interface, Brush Worker In - 12/25/2005 2:07 AM PDT [id number] [place] [id number] Clinic Date: 12/05/2005 Clinic: General Surgery Clinic PHONE CONSULTATION Subjective: Belinda Meehan has been under our care with a history of gastric bypass and recurrent abdominal pain, nondiagnostic on multiple tests. She was requesting a prescription for oxycodone which will be sent to her home at [address] [place] [address]. Oxycodone 5 mg, 5 to 10 p.o. [...] Padgett in clinic. Melisa Thorne / SHARIF [id number] / [id number] / [id number] / [id number] Electronically signed by Kenisha Melton 12-24-2005 01:41:04 PM documented i n this encounter Plan of Treatment Not on filedocumented as of this encounter Visit Diagnoses Not on filedocumented in this encounter"
--- OUTSIDE RECORDS SUMMARY | ~2019-11-17 | XMS | Encounter Summary ---
Demographics + + + | Address | [address] | | | [place] [address] | + + + | Home Phone [...] Team Providers + +------+ + | Care Economic Manager Name | Role | Phone | [...] + + | 01/01/ | Refill | [facility] | Alanis, | Medication Refill | | 2017 | | MEDICINE [address] [place] [address] | MD Petrona | | | | | [facility] | [address] [place] [address] | | | | | [place] [address] | [place] [address] | | | | | [phone] | [phone] | | | | | | | [...] | | | | | [place] [address] | | | | | | [phone] | | | | | | | | +--------+---------+ + + + | 12/20/ | Office | Otolaryngology | Ulysses Genao MD | | | 2019 | Visit | | [address] [place] | | | | | | [address] [place], | | | | | | [place] [address] | | | | | | [phone] | | | | | | | | +--------+---------+ + + + | 02/15/ | Office | Internal Medicine | Alanis, | | | 2019 | Visit | | MD Petrona | | | | | | [address] [place] [address] [address] | | | | | | [place] [address] | | | | | | [phone] | | | | | | | | +--------+---------+ + + + documented as of this encounter Visit Diagnoses Not on filedocumented in this encounter"
--- OUTSIDE RECORDS SUMMARY | ~2019-11-17 | XMS | Encounter Summary ---
Demographics + + + | Address | [address] | | | [place] [address] | + + + | Home Phone [...] Providers + +------+ + | Care Auto Travel Counselor Name | Role | Phone | [...] [address] | | | | | | [place], [place] | | | | | | [address] | | | | | | [phone] | | | +--------+ + + + [...]
--- OUTSIDE RECORDS SUMMARY | ~2019-11-17 | XMS | Encounter Summary ---
Demographics + + + | Address | [address] | | | [place] [address] | + + + | Home Phone [...] Team Providers + +------+ + | Care Design Quality Engineer Name | Role | Phone [...] + + | 06/09/ | Telephone | [facility] | Alanis, | Safety issue | | 2019 | | MEDICINE [address] [place] [address] | MD Petrona | | | | | [facility] | [address] [place] [address] | | | | | [place] [address] | [place] [address] | | | | | [phone] | [phone] | | | | | | | [...] | | | | | [place] [address] | | | | | | [phone] | | | | | | | | +--------+---------+ + + + | 12/20/ | Office | Otolaryngology | Ulysses Genao MD | | | 2019 | Visit | | [address] [place] | | | | | | [address] [place], | | | | | | [place] [address] | | | | | | [phone] | | | | | | | | +--------+---------+ + + + | 02/15/ | Office | Internal Medicine | Alanis, | | | 2019 | Visit | | MD Petrona | | | | | | [address] | | | | | | [place] [address] | | | | | | [phone] | | | | | | | | +--------+---------+ + + + documented as of this encounter Visit Diagnoses Not on filedocumented in this encounter"
--- OUTSIDE RECORDS SUMMARY | ~2019-11-17 | XMS | Encounter Summary ---
Demographics + + + | Address | [address] | | | [place] [address] | + + + | Home Phone [...] Providers + +------+ + | Care Financial Reporting Accountant Name | Role | [...] Refill Request | | 2007 | | [place] [address] | [address] | (Sucralfate) | | | | Bethanie Mailcode: CH4S | [facility] | | | | | [facility] | [place], [place] | | | | | and Healing, | [address] | | | | | [facility] | [phone] | | | | | Floor [place], [place] | | | | | | [address] | | | | | | [phone] | | | +--------+--------+ + + + [...]
--- OUTSIDE RECORDS SUMMARY | ~2019-11-17 | XMS | Encounter Summary ---
Demographics + + + | Address | [address] | | | [place] [address] | + + + | Home Phone [...] Providers + +------+ + | Care Child Protective Investigator Name | Role | Phone | [...] [address] | | | | | [place], [place] | [place], [place] | | | | | [address] | [address] | | | | | [phone] | [phone] | | | | | | | [...]
--- OUTSIDE RECORDS SUMMARY | ~2019-11-17 | XMS | Encounter Summary ---
Demographics + + + | Address | [address] | | | [place] [address] | + + + | Home Phone [...] Team Providers + +------+ + | Care Connie Scratcher Name | Role | Phone | + [...] as of this encounter Progress Notes Interface, Backshoe Person In - 12/25/2005 2:07 AM PDT [id number] GEOVANNI [place] [id number] Clinic Date: 12/05/2005 Clinic: General Surgery Clinic PHONE CONSULTATION Subjective: Belinda Meehan has been under our care with a history of gastric bypass and recurrent abdominal pain, nondiagnostic on multiple tests. She was requesting a prescription for oxycodone which will be sent to her home at [address] [place] [address]. Oxycodone 5 mg, 5 to 10 p.o. [...] Padgett in clinic. Melisa Thorne / SHARIF [id number] / [id number] / [id number] / [id number] Electronically signed by Kenisha Melton 12-24-2005 01:41:04 PM documented i n this encounter Plan of Treatment Not on filedocumented as of this encounter Visit Diagnoses Not on filedocumented in this encounter"
--- OUTSIDE RECORDS SUMMARY | ~2019-11-17 | XMS | Encounter Summary ---
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 1960 Start of Care: 06/23/2006 Referring Provider: [...] and when she is finished at the [facility] with physical therapy advised to [...] + + +--------+ + + | IN THERAPEUTIC | Procedures | Routin | Spondylosis [...]
--- OUTSIDE RECORDS SUMMARY | ~2019-11-17 | XMS | Encounter Summary ---
Demographics + + + | Address | [address] | | | [place] [address] | + + + | Home Phone [...] Providers + +------+ + | Care Plug Saw Operator Name | Role | Phone [...] as of this encounter Progress Notes Interface, Cable Dispatcher In - 01/12/2005 6:32 AM PDT Referred [...] she was going to go to the [employer] food store and try to find another [...] two months. Svetlana Maki R.D. SR/x35 P [id number] signed by Interface, Cable Dispatcher In at 01/12/2005 6:32 AM [facility] Plan of Treatment Not on filedocumented as of this encounter Visit Diagnoses Not on filedocumented in this encounter"
--- OUTSIDE RECORDS SUMMARY | ~2019-11-17 | XMS | Encounter Summary ---
Demographics + + + | Address | [address] | | | [place] [address] | + + + | Home Phone [...] Providers + +------+ + | Care Online Advertising Director Name | Role | Phone | [...] as of this encounter Progress Notes Interface, Tennis Professional In - 01/21/2006 1:09 AM [facility] [place] [address] [address], [place] [address] or March 15, 2002 Pedrito Gutierrez M.D. [facility] [address] [place] [address] RE: BELINDA MEEHAN MR #: [id number] Dear Dr. Gutierrez: I had the pleasure [...] to set her up to see a oracle fusion consultant in Neurology or the [facility] [...] to contact me. Sincerely, Issac Meeks M.D. amusement or recreation card checker Division of Endocrinology, Diabetes, and Clinical Auditing Specialist of Metabolic Disorders Clinic [employer] / SHARIF [id number] / [id number] / [id number] / Tdocumented in this encounter Plan of Treatment Not on filedocumented as of this encounter Visit Diagnoses Not on filedocumented in this encounter"
--- OUTSIDE RECORDS SUMMARY | ~2019-11-17 | XMS | Encounter Summary ---
Demographics + + + | Address | [address] | | | [place] [address] | + + + | Home Phone [...] Team Providers + +------+ + | Care Donkey Doctor Name | Role | Phone | [...]
--- OUTSIDE RECORDS SUMMARY | ~2019-11-17 | XMS | Encounter Summary ---
Demographics + + + | Address | [address] | | | [place] [address] | + + + | Home Phone [...] Providers + +------+ + | Care Principal Consultant Name | Role | Phone | [...] 05/29/ | Office | Pain Center at [facility] | Lukasz Charles, | Major Depressive | | 2005 | Visit | [address] | PhD [address] | Disorder, Recurrent | | | | Mailcode: CH15P | [place], [place] | Episode, Moderate | | | | [facility] | [address] | ([facility]); Chronic | | | | and Healing, | [phone] | Abdominal Pain; | | | | Building | | Cervical Pain; | | | | Floor [place], [place] | | Headache; Adjustment | | | | [address] | | Disorder with | | | | [phone] | | Anxiety; Other Pain | | [...] Notes Lukasz Charles - 05/29/2006 6:15 PM [facility] Initial Psychological Wendy luation IDENTIFYING INFORMATION: Belinda Meehan is a 46 y.o. female Date of : 1960 Consulting Physician: LUKASZ CHARLES PHD Consultation Date: 05/29/2006 Referring Provider: Carlos Arreola Identifying Information: Belinda Meehan is a 46 y.o. female who lives in [place] [place] her 2 sons. The patient was [...] disability benefits. 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 Marital History: , not currently in [...] and decreasing depression and anx iety. Diagnosis: [place] I: 1. (296.32) Major depressive disorder, recurrent, moderate. 2. (309.24) Adjustment disorder with anxiety. 3. 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 [place] II: Deferred [place] III: abdominal pain, migraine headache, low back pain. [place] IV: low finances [place] V: GAF 50 Recommendations: 1. Psychological counseling to increase knowledge and use of cognitive and behavioral pain coping skills is recommended. The treatment should include relaxation training to improve c ontrol over physiologic responses to pain. Treatment should also focus on decreasing sympto ms of depression and increasing participation in social, recreational and leisure activities . Ms. 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 LUKASZ CHARLES PHD [facility] [address] [place] [address] [facility], [address] [place] [address] documented [facility] Plan of Treatment + + +--------+ + + | Name | Type | Priori | Associated Diagnoses | Order Schedule | | | | ty | | | + + +--------+ + + | [facility] | Procedures | Routin | Major Depressive | Ordered: 05/29/2006 | | DIAGNOSTIC INTERVIEW | | e | Disorder, Recurrent | | | | | | Episode, Moderate | | | | | | ([facility]) Chronic | | | | [...]
--- OUTSIDE RECORDS SUMMARY | ~2019-11-17 | XMS | Encounter Summary ---
Demographics + + + | Address | [address] | | | [place] [address] | + + + | Home Phone [...] Providers + +------+ + | Care Laborer Vegetable Farm Name | Role | Phone | [...] 05/28/ | Office | Pain Center at [facility] | Lukasz Charles, | Major Depressive | | 2006 | Visit | [address] | PhD [address] | Disorder, Recurrent | | | | Mailcode: CH15P | [place], [place] | Episode, Moderate | | | | [place] [facility] | [address] | ([facility]); LBP (Low Back | | | | and Healing, | [phone] | Pain); DJD | | | | | | (Degenerative Joint | | | | Floor [place], [place] | | Disease) of Knee; | | | | [address] | | Other Pain Disorders | | | | [phone] | | Related to | | | [...] she is having some acute illness. Diagnosis: [place] I: 1. (296.32) Major depressive disorder, recurrent, moderate. 2. (309.24) Adjustment disorder with anxiety. 3. 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 [place] II: Deferred [place] III: abdominal pain, migraine headache, low back pain. [place] IV: low finances [place] V: GAF 55-60 Plan: Return with next medical follow-up appointment. Check mood, knee surgery, relaxation, acti vity, distraction. Continue cognitive/behavioral therapy. Total time spent with patient was approximately [address] [facility] [address] [facility], 4th [place] [address] documented in this encount er Plan of [...]
--- OUTSIDE RECORDS SUMMARY | ~2019-11-17 | XMS | Encounter Summary ---
Demographics + + + | Address | [address] | | | [place] [address] | + + + | Home [...] Team Providers + +------+ + | Care Wraparound Facilitator Name | Role | Phone | [...]
--- OUTSIDE RECORDS SUMMARY | ~2019-11-17 | XMS | Encounter Summary ---
Demographics + + + | Address | [address] | | | [place] [address] | + + + | Home Phone [...] Team Providers + +------+ + | Care Puppy Sitter Name | Role | Phone | [...] Densitometry | | MD Beto | Density [facility] | | | | | Osteoporosis | [address] | [address] | | | | | Procedures | Ave | [address] | | | | | CONSULT TO | [place], [place] | Rd Mailcode: | | | | | BONE | [address] | [address] | | | | | DENSITOMETRY | Phone: | [address] | | | | | | [phone] | [place], [place] | | | | | | Fax: | [address] | | | | | | [phone] | Phone: | | | | | | | [phone] | | | | | | | Fax: | | | | | | | [phone] | +--------+--------+ + + + + Reason [...] Sara Kovacs | | | | | [facility] | [place], [place] | | | | | [address] | [address] | | | | | [address] | [phone] | | | | | [facility] | | | | | | Physician's | | | | | | Pavilion [place], | | | | | | [place] [address] | | | | | | [phone] | | | +--------+ + + + [...]
--- OUTSIDE RECORDS SUMMARY | ~2019-11-17 | XMS | Encounter Summary ---
Demographics + + + | Address | [address] | | | [place] [address] | + + + | Home Phone [...] Team Providers + +------+ + | Care Propagator Laborer Name | Role | Phone | [...] Rehabilitatio | bilateral | i, | [address] | | | | n | low back | Sulaiman-Ivány | [place], | | | | | pain with | MD [address] | [place] [address] | | | | | left-sided | [address] | Phone: | | | | | sciatica | [place], | [phone] | | | | | Muscle spasm | [place] | Fax: | | | | | | [address] | [phone] | | | | | Fibromyalgia | Phone: | | | | | | | [phone] | | | | | | | Fax: | | | | | | | [phone] | | +--------+ + + + + + Reason for Visit + + + | Reason | Comments | + + + | Follow-up | 2 month | + + + Encounter Details +--------+---------+ + + + | Date | Type | Department | Care Team | Description | +--------+---------+ + + + | 05/04/ | Office | [facility] | Emmy-Kamlesh, | Chronic bilateral | | 2017 | Visit | MEDICINE [address] | [place] | low back pain with | | | | [address] | [address] [facility] | left-sided sciatica | | | | [place] [address] | [place] [address] | (Primary Dx); Muscle | | | | [phone] | [phone] | spasm; | | | | | [...] also help with symptoms. Date Last Reviewed: 07/29/201519990500-1754 [employer]. [address] [place] [address], [place] [address]. All righ ts reserved. This information is [...] [facility]) Depression Diarrhea Dumping syndrome Fatigue fracture of vertebra Fibromyalgia Glaucoma Hyperparathyroidism (HCC) Hypothyroidism IBS (irritable bowel syndrome) Idiopathic scoliosis Leg edema Lumbar postlaminectomy syndrome Lumbar radiculopathy primarily right 01/04/2015 Meniere syndrome Migraines Muscle cramping Muscle spasm Myalgia Nonalcoholic hepatosteatosis Obesity Opiate dependence ([facility]) Orthostatic hypotension OLIVER (obstructive sleep apnea) Osteoarthritis, generalized Osteopenia Osteoporosis Peripheral neuropathy ([facility]) Rheumatoid arthritis ([facility]) [...] 1,000 mcg 1,000 mcg Intramuscular Q30 Days [facility] Maddie Thapa MD 1,000 mcg at 05/04/17 1713 ALLERGIES Allergies Allergen Reactions Codeine Sulfate Nausea Only Levofloxacin Hives, Itching and Rash Amitriptyline Hcl Other (See Comments) Confused and questionable for seizures Xouienxvsa-Qhcc-Symrffbt Cephalexin Hives Ketorolac Hives Morphine Swelling Tramadol Hcl Nausea Only Hydtmtfnxb-Gdrm-Nmpepdkn Hives and Rash Ciprofloxacin Hives and Rash [...] back pain with left-sided sciatica - * [facility] Physiatry - AMB Referral; Future - CBC with Differential; Future - Comprehensive Metabolic Panel; Future - TSH; Future - CK Total; Future - C-Reactive Protein; Future 2. Muscle spasm - * [facility] Physiatry - [facility] Referral; Future - CBC with Differential; Future - Comprehensive Metabolic Panel; Future - TSH; Future - CK Total; Future - C-Reactive Protein; Future - methocarbamol (ROBAXIN) 750 mg tablet; take 1 tablet by mouth twice a day Dispense: 60 t ablet; Refill: 3 3. Fibromyalgia - * [facility] Physiatry - [facility] Referral; Future - CBC with Differential; Future - Comprehensive Metabolic Panel; Future - TSH; Future - CK Total; Future - C-Reactive Protein; Future 4. Left hip pain - XR Hip Left 2-3 Views; Future FOLLOW-UP No Follow-up on file. Note: Parts of this documentwere created using [employer] speech recognition software. As a r esult, [...] | | | | | [place] [address] | | | | | | [phone] | | | | | | | | +--------+---------+ + + + | 12/20/ | Office | Otolaryngology | Ulysses Genao MD | | | 2019 | Visit | | [address] [place] | | | | | | [address] [place], | | | | | | [place] [address] | | | | | | [phone] | | | | | | | | +--------+---------+ + + + | 02/15/ | Office | Internal Medicine | Alanis, | | | 2019 | Visit | | MD [place] | | | | | | [address] [place] | | | | | | [place] [address] | | | | | | [phone] | | | | | | | [...] [address] | [place] | [phone] | | [facility] | | [address] | | | - LABORATORY | | [...] [address] | [place] | [phone] | | [facility] | | [address] | | | - LABORATORY | | [...] + | [address] | [address] | [place] | [phone] | | [facility] | | [address] | | | - LABORATORY | | [...] mL/min/1.73m2 | [facility] | | | LATVIAN | RATE,ESTIMATED | | MEDICAL | | | | mL/min/1.55k0Ljbs than | | CENTER - | | [...] [address] | [place] | [phone] | | [facility] | | [address] | | | - LABORATORY | | [...] [address] | [place] | [phone] | | [facility] | | [address] | | | - LABORATORY | | [...]
--- OUTSIDE RECORDS SUMMARY | ~2019-11-17 | XMS | Encounter Summary ---
Demographics + + + | Address | [address] | | | [place] [address] | + + + | Home Phone [...] Team Providers + +------+ + | Care Woods Boss Name | Role | Phone | [...] | Visit | [address] | INSIDE SALES CONSULTANT | syndrome [address] | | | | [address] | | (Primary Dx); | | | | Physician's | | Fibromyalgia | | | | [address], [address]th Floor | | | | | | [place], [place] | | | | | | [address] | | | | | | [phone] | | | +--------+---------+ + + + [...] + + +--------+ + + | ME INJECT TRIGGER | Procedures | Routin | [...]
--- OUTSIDE RECORDS SUMMARY | ~2019-11-17 | XMS | Encounter Summary ---
Demographics + + + | Address | [address] | | | [place] [address] | + + + | Home Phone [...] [address] | | | | | | [place], [place] | | | | | | [address] | | | | | | [phone] | | | +--------+ + + + [...] | + + + + + | [facility] DEPARTMENT OF | [address] | [place] [address] | | | PATHOLOGY | [address] | | | + + + + + | [facility] DEPARTMENT | [address] | [place] [address] | | | PATHOLOGY | [address] | | | + + + + + PROTHROMBIN TIME (03/10/2006 2:42 PM PDT) + + + + + + | Component | Value | Ref Range | Performed | Pathologist | | | | | At | Signature | + + + + + + | INR | 1.01Comment: | 0.90 - 1.20 INR | [facility] | | | | PT [...] + | [facility] | [address] [place] [address] | [place] [address] | | | PATHOLOGY | [address] | | | + + + + + | [facility] | [address] [facility] | [place] [address] | | | PATHOLOGY | [address] [...] DEPARTMENT OF | [address] | [place] [address] | | | PATHOLOGY | [address] | | | + + + + + | [facility] DEPARTMENT OF | [address] | [place] [address] | | | PATHOLOGY | [address] [...] | + + + + + | [facility] DEPARTMENT | [address] [facility] | [place] [address] | | | PATHOLOGY | [address] | | | + + + + + | [facility] | [address] [facility] | [place] [address] | | | PATHOLOGY | [address] [...] + + + | [facility] | [address] | [place] [address] | | | LABORATORY | | | [...] | | | | | performed at [facility] | | | | | | [facility] [...] + + + | [facility] | [address] | [place] [address] | | | LABORATORY | | | | + + + + + documented in this encounter Visit Diagnoses + + | Diagnosis | + + | Chronic abdominal pain Abdominal pain, unspecified site | + + | Iron deficiency Other disorders of iron metabolism | + + documented in this encounter"
--- OUTSIDE RECORDS SUMMARY | ~2019-11-17 | XMS | Encounter Summary ---
Demographics + + + | Address | [address] | | | [place] [address] | + + + | Home Phone [...] + +------+ + | Care High School Learning Support Teacher Name | Role | [...] | Neurology | Diagnoses | Miracle, | [place], | | | | | Migraine | NIHARIKA Jean | Merari Lopez MD | | | | | headache | [address] | | | | | | Procedures | Mychal Kovacs | | | | | | CONSULT TO | [place], [place] | | | | | | NEUROLOGY | [address] | | +--------+--------+ + + + + [...] | | [facility] | | Migraine Headache; | | | | [address] | | Opioid Dependence, | | | | Mailcode: CH15P | | Continuous (HCC); | | | [facility] | | Neck Pain; Right | | | | and Healing, | | shoulder rotator | | | | Building | | cuff strain; | | | | Floor [facility] [place] | | 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 Schedule Neurology evaluation [facility] order placed for Dr. Merari Mittal MD [...] car. She has not been seeing the [facility] PT , await ing the surgical plan for her left knee. MRI done, ordered by Dr. Ibarra who referred to Dr. Angel Morales for surgical opinion, scheduled for 10/28/06. She continues to see Dr. Alin adames at [facility] and reports benefit and would like to nelly salude she has two more scheduled visits. She reports Dr. Woodson referred her to neurologist locally for her migraine assessment how ever not being scheduled due to insurance [place] barriers. She is interested in being referred to a Dr. Merari Mittal [facility] neurlogy whom she has heard works [...] Collection Time Resulting Agency 10/05/2006 9:20 AM [facility] DEPARTMENT OF RADIOLOGY Component Results MR KNEE [...] the free margin and undersurface of the air defense artillery officer horn of the medial meniscus suspicious for [...] the left knee 3. Schedule Neurology evaluation [facility] order placed for Dr. Merari Mittal MD 4. Follow up 11/11/06 to reivew pain management 5. Cntinue with PT and psychology as scheduled DELFINA MOLINA [facility] Mail code CH 4P [address] [address] iAgustin maciasndy - 10/23 12:47 [...]
--- OUTSIDE RECORDS SUMMARY | ~2019-11-17 | XMS | Encounter Summary ---
Demographics + + + | Address | [address] | | | [place] [address] | + + + | Home Phone [...] Team Providers + +------+ + | Care Soil Tester Name | Role | Phone | [...] + + | 06/03/ | Telephone | [facility] | Alanis, | Referral | | 2017 | | MEDICINE [address] [place] [address] | [place] | | | | | [facility] | [address] [place] [address] | | | | | [place] [address] | [place] [address] | | | | | [phone] | [phone] | | | | | | | [...] | | | | | [place] [address] | | | | | | [phone] | | | | | | | | +--------+---------+ + + + | 12/20/ | Office | Otolaryngology | Ulysses Genao MD | | | 2019 | Visit | | [address] | | | | | | [address] [place], | | | | | | [place] [address] | | | | | | [phone] | | | | | | | | +--------+---------+ + + + | 02/15/ | Office | Internal Medicine | Alanis, | | | 2019 | Visit | | MD [place] | | | | | | [address] [place] | | | | | | [place] [address] | | | | | | [phone] | | | | | | | | +--------+---------+ + + + documented as of this encounter Visit Diagnoses Not on filedocumented in this encounter"
--- OUTSIDE RECORDS SUMMARY | ~2019-11-17 | XMS | Encounter Summary ---
Demographics + + + | Address | [address] | | | [place] [address] | + + + | Home Phone [...] Team Providers + +------+ + | Care Sailing Officer Name | Role | Phone | [...]
--- OUTSIDE RECORDS SUMMARY | ~2019-11-17 | XMS | Encounter Summary ---
Demographics + + + | Address | [address] | | | [place] [address] | + + + | Home Phone [...] Providers + +------+ + | Care Cigarette Catcher Name | Role | Phone | [...] [address] | | | | | | [place], [place] | | | | | | [address] | | | | | | [phone] | | | +--------+ + + + [...]
--- OUTSIDE RECORDS SUMMARY | ~2019-11-17 | XMS | Encounter Summary ---
Demographics + + + | Address | [address] | | | [place] [address] | + + + | Home Phone [...] Providers + +------+ + | Care Manager Furniture Name | Role | Phone | + [...] [facility] | Alanis, | Results, Imaging | | 2017 | | MEDICINE [address] | [place] | | | | | [facility] | [address] [place] [address] | | | | | [place] [address] | [place] [address] | | | | | [phone] | [phone] | | | | | | | [...] | | | | | [place] [address] | | | | | | [phone] | | | | | | | | +--------+---------+ + + + | 12/20/ | Office | Otolaryngology | Ulysses Genao MD | | | 2019 | Visit | | [address] [place] | | | | | | [address] [place], | | | | | | [place] [address] | | | | | | [phone] | | | | | | | | +--------+---------+ + + + | 02/15/ | Office | Internal Medicine | Alanis, | | | 2019 | Visit | | MD [place] | | | | | | [address] [place] [address] [place] [address] | | | | | | [place] [address] | | | | | | [phone] | | | | | | | | +--------+---------+ + + + documented as of this encounter Visit Diagnoses Not on filedocumented in this encounter"
--- OUTSIDE RECORDS SUMMARY | ~2019-11-17 | XMS | Encounter Summary ---
Demographics + + + | Address | [address] | | | [place] [address] | + + + | Home Phone [...] Providers + +------+ + | Care Cutting Table Operator First Name | Role | Phone | + [...] | Transcriptions | + + | Interface, Supervisor Special Services In - 08/06/2005 2:06 AM PST | | [id number] | | [id number] GEOVANNI Barnes | | | | Date: 07/25/2005 | | | | Attending Surgeon: Chris Padgett M.D. | | | | Resident Assistant(s): Bandar Langley M.D. | | | | [...] | | DT / HS | | [id number] / [id number] / [id number] / [id number] | | | | | | | | | | | | Electronically signed by Chris Padgett 08-05-2005 12:36:41 PM | + + documented in this encounter Visit Diagnoses Not on filedocumented in this encounter"
--- OUTSIDE RECORDS SUMMARY | ~2019-11-17 | XMS | Encounter Summary ---
Demographics + + + | Address | [address] | | | [place] [address] | + + + | Home Phone [...] Providers + +------+ + | Care Advertising Sales Manager Name | Role | Phone [...] | | 2006 | | [facility] | MD Darrion,PhD [address] | | | | | for [facility] and | [address] | | | | | Healing [address] | [place], [place] | | | | | Ave Mailcode: | [address] | | | | | CH12A [facility] | [phone] | | | | | Health and Healing, | | | | | | [facility] | | | | | | [place], [place] | | | | | | [address] | | | | | | [phone] | | | +--------+ + + + [...]
--- OUTSIDE RECORDS SUMMARY | ~2019-11-17 | XMS | Encounter Summary ---
[...] Providers + +------+ + | Care Import/Export Administrator Name | Role | Phone | [...] 03/31/ | Office | [facility] | Lukasz Charles, | Major Depressive | | 2006 | Visit | [address] | PhD [address] | Disorder, Recurrent | | | | Mailcode: CH15P | [place], [place] | Episode, Moderate | | | | [facility] | [address] | ([facility]); Spondylosis | | | | and Healing, | [phone] | with Myelopathy, | | | | Building | | Lumbar Region; Left | | | | Floor [place], [place] | | Knee Pain; | | | | [address] | | Fibromyalgia | | | | [phone] | | syndrome 729.1; | | | [...] ab out her next knee surgery. Diagnosis: [place] I: 1. (296.32) Major depressive disorder, recurrent, moderate. 2. (309.24) Adjustment disorder with anxiety. 3. 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 [place] II: Deferred [place] III: abdominal pain, migraine headache, low back pain. [place] IV: low finances [place] V: GAF 55-60 Plan: Return with next medical follow-up appointment. Check mood, knee surgery, pacing, relaxati on, activity, distraction. Continue cognitive/behavioral therapy. Discuss need for further sessions. Total time spent with patient was approximately 45 minutes. LUKASZ CHARLES PHD [facility] [address] [facility], [address] [place] [address] documented in this encount er Plan of [...]
--- OUTSIDE RECORDS SUMMARY | ~2019-11-17 | XMS | Encounter Summary ---
Demographics + + + | Address | [address] | | | [place] [address] | + + + | Home Phone [...] Team Providers + +------+ + | Care Budget And Policy Analyst Name | Role | Phone | [...] [place], | | | | | [address] [place], [place] | [place] [address] | | | | | [address] | [phone] | | | | | [phone] | | | +--------+ + + + [...] | | 2020 | Visit | | ANUJ-Katie [address] | | | | | [address] [place] | | | | | | [place] [address] | | | | | | [phone] | | | | | | | | +--------+---------+ + + + | 12/20/ | Office | Otolaryngology | Ulysses Genao MD | | | 2019 | Visit | | [address] | | | | | | [address] [place], | | | | | | [place] [address] | | | | | | [phone] | | | | | | | | +--------+---------+ + + + | 02/15/ | Office | Internal Medicine | Alanis, | | | 2019 | Visit | | [place] | | | | | | [address] [place] | | | | | | [place] [address] | | | | | | [phone] | | | | | | | | +--------+---------+ + + + documented as of this encounter Visit Diagnoses Not on filedocumented in this encounter"
--- OUTSIDE RECORDS SUMMARY | ~2019-11-17 | XMS | Encounter Summary ---
Demographics + + + | Address | [address] | | | [place] [address] | + + + | Home Phone [...] Providers + +------+ + | Care Crate Maker Name | Role | Phone | [...] Required | | | i, | [address] | | | | | osteoporosis | Sulaiman-Ivány | [place], | | | | | without | , MD [address] | [place] [address] | | | | | current | [address] | Phone: | | | | | pathological | [place], | [phone] | | | | | fracture | [place] | Fax: | | | | | | [address] | [phone] | | | | | | Phone: | | | | | | | [phone] | | | | | | | Fax: | | | | | | | [phone] | | +--------+ + + + + [...] Required | | | i, | [address] | | | | | osteoporosis | [place] | [place], | | | | | without | , MD [address] | [place] [address] | | | | | current | [address] | Phone: | | | | | pathological | [place], | [phone] | | | | | fracture | [place] | Fax: | | | | | | [address] | [phone] | | | | | | Phone: | | | | | | | [phone] | | | | | | | Fax: | | | | | | | [phone] | | +--------+ + + + + + Encounter Details +--------+ + + + + | Date | Type | Department | Care Team | Description | +--------+ + + + + | 10/14/ | Hospital | [facility] | EmmyAlberto, | Age-related | | 2019 | Encounter | MED CTR OP INFUSION | [place] | osteoporosis without | | | | [address] | [address] [facility] | current | | | | [place] | [place] [address] | pathological | | | | [address] | [phone] | fracture (Primary | | | | [phone] | | Dx) | +--------+ + + [...] 16 Temp: 36 C (96.8 F) Belinda Molly Meehan received into room 440, independent ambulation [...] | | [facility] [address] | | | | | [address] [place] | | | | | | [place] [address] | | | | | | [phone] | | | | | | | | +--------+---------+ + + + | 12/20/ | Office | Otolaryngology | Ulysses Genao MD | | | 2019 | Visit | | [address] | | | | | | [address] [place], | | | | | | [place] [address] | | | | | | [phone] | | | | | | | | +--------+---------+ + + + | 02/15/ | Office | Internal Medicine | EmmyAlberto, | | | 2019 | Visit | | MD [place] | | | | | | [address] [place] | | | | | | [place] [address] | | | | | | [phone] | | | | | | | [...]
--- OUTSIDE RECORDS SUMMARY | ~2019-11-17 | XMS | Encounter Summary ---
Demographics + + + | Address | [address] | | | [place] [address] | + + + | Home Phone [...] Team Providers + +------+ + | Care Citrus Picker Name | Role | Phone | [...] + | 08/14/ | Refill | [facility] | Alanis, | Medication Refill | | 2018 | | MEDICINE [address] [place] [address] | [place] | | | | | [facility] | [address] [place] [address] | | | | | [place] [address] | [place] [address] | | | | | [phone] | [phone] | | | | | | | [...] | | | | | [place] [address] | | | | | | [phone] | | | | | | | | +--------+---------+ + + + | 12/20/ | Office | Otolaryngology | Ulysses Genao MD | | | 2019 | Visit | | [address] | | | | | | [address] [place], | | | | | | [place] [address] | | | | | | [phone] | | | | | | | | +--------+---------+ + + + | 02/15/ | Office | Internal Medicine | Alanis, | | | 2019 | Visit | | MD [place] | | | | | | [address] [place] [address] [address] | | | | | | [place] [address] | | | | | | [phone] | | | | | | | | +--------+---------+ + + + documented as of this encounter Visit Diagnoses Not on filedocumented in this encounter"
--- OUTSIDE RECORDS SUMMARY | ~2019-11-17 | XMS | Encounter Summary ---
Demographics + + + | Address | [address] | | | [place] [address] | + + + | Home Phone [...] | | + + +---------+ + | Marc oAntonio Wells | ECON | Unknown | | + + +---------+ + Care Team Providers + +------+ + | Care Nicker And Breaker Name | Role | Phone | + [...] Rom results of | | | | [facility] | | several radiology | | | | [address] | | studies) | | | | Mailcode: CH15P | | | | | | [facility] | | | | | | and Healing, | | | | | | Building | | | | | | Floor [place], [place] | | | | | | [address] | | | | | | [phone] | | | +--------+ + + + [...] + +--------+ + + + | [facility] LOWER EXTREM | Routin | 08/22/2005 [...] + +--------+ + + + | [facility] MRI LOWER EXTREM | Routin | 03/05/2005 [...] + | NAME: BELINDA MEEHAN MR #: [id number] | [facility] | | DATE OF EXAM: [id number] [...] Armaan Rivera | | | H : [id number] : 1442 Approved By: Radiologist: | | + + + + + + + + | Performing | Address | City/State/Zipcode | Phone Number | | Organization | | | | + + + + + | [facility] | [address] | [place], [place] | | | [facility] | [address] | [address] | | | TESTS | | | | + + + + + | [facility] | [address] | [place], [place] | | | TESTS | [address] | [address] | | + + + + + [...] [facility] | [address] | [place], [place] | | | [facility] | [facility] | [address] | | | TESTS | | | | + + + + + | [facility] | [address] | [place], [place] | | | TESTS | [facility] | [address] | | + + + + + [...] By: Armaan Mata : | | | [id number] : 1137 Approved By: | | + + + + + + + + | Performing | Address | City/State/Zipcode | Phone Number | | Organization | | | | + + + + + | [facility] | [address] | [place], [place] | | | [facility] | [address] | [address] | | | TESTS | | | | + + + + + | [facility] | [address] [facility] [address] | [place], [place] | | | TESTS | [address] | [address] | | + + + + + MRI SPINE CERVICAL WO CONTRAST (10/01/2005) + + + | Impressions | Performed At | + + + | SPINE LUMBAR 2 VIEWS AT 1421 HOURS LUMBAR SPINE, 10/01/05 | [facility] | | HISTORY: Back pain. FINDINGS: AP and lateral views of the lumbar | CARE TESTS | | spine show five bsd-qnq-letwuit lumbar vertebrae in normal alignment | | [...] | SPONDYLOSIS. Transcribed By: Armaan Mata : [id number] : | | | 1402 Approved By: | | + + + + + + + + | Performing | Address | City/[facility] | Phone Number | | Organization | | | | + + + + + | [facility] | [address] | [place], [place] | | | [facility] | [address] | [address] | | | TESTS | | | | + + + + + | [facility] | [address] | [place], [place] | | | TESTS | [address] | [address] | | + + + + + [...] | | Transcribed By: Adriana Pacheco : [id number] : 1215 Approved By: | | | | | + + + + + + + + | Performing | Address | City/State/Zipcode | Phone Number | | Organization | | | | + + + + + | [facility] | [address] | [place], [place] | | | [facility] | [address] | [address] | | | TESTS | | | | + + + + + | [facility] | [address] | [place], [place] | | | TESTS | [address] | [address] | | + + + + + [facility] MRI LOWER EXTREM JT, W/O CONTRAST (08/22/2005) + + + | Impressions | Performed At | + + + | LOWER EXTREMITY JOINT RT W/O AT 1619 HOURS RIGHT KNEE MRI, | [facility] | | 08/22/05 HISTORY: Chronic posterior [...] + + | Performing | Address | City/[facility] | Phone Number | | Organization | | | | + + + + + | [facility] | [address] | [place], [place] | | | [facility] | [address] | [address] | | | TESTS | | | | + + + + + | [facility] | [address] | [place], [place] | | | TESTS | [address] | [address] | | + + + + + [...] [facility] | [address] | [place], [place] | | | [facility] | [address] | [address] | | | TESTS | | | | + + + + + | [facility] | [address] | [place], [place] | | | TESTS | [address] | [address] | | + + + + + [facility] MRI LOWER EXTREM JT, W/O CONTRAST (03/05/2005) [...] | | | By: Armaan Mata : [id number] : 1416 Approved By: | | + + + + + + + + | Performing | Address | City/State/Zipcode | Phone Number | | Organization | | | | + + + + + | [facility] | [address] | [place], [place] | | | [facility] | [address] | [address] | | | TESTS | | | [...] Armaan | | | Nicole Saenz : [id number] : 1555 Approved By: | | + + + + + + + + | Performing | Address | City/State/Zipcode | Phone Number | | Organization | | | | + + + + + | [facility] | [address] | [place], [place] | | | [facility] | [address] | [address] | | | TESTS | | | [...] Adriana | | | Aminata Pacheco : [id number] : 1505 Approved By: | | + + + + + + + + | Performing | Address | City/State/Zipcode | Phone Number | | Organization | | | | + + + + + | [facility] | [address] [facility] [address] | [place], [place] | | | [facility] | [address] | [address] | | | TESTS | | | | + + + + + documented in this encounter Visit Diagnoses Not on filedocumented in this encounter"
--- OUTSIDE RECORDS SUMMARY | ~2019-11-17 | XMS | Encounter Summary ---
Demographics + + + | Address | [address] | | | [place] [address] | + + + | Home Phone [...] Providers + +------+ + | Care Radio Interference Trouble Shooter Name | Role | Phone | [...] | | 2006 | | [facility] at [facility] | MD Darrion,PhD [address] | | | | | for Health and | [address] | | | | | Healing [address] | [place], [place] | | | | | Bethanie Mailcode: | [address] | | | | | [facility] | [phone] | | | | | Health and Healing, | | | | | | [facility] | | | | | | Floor [place], [place] | | | | | | [address] | | | | | | [phone] | | | +--------+ + + + [...]
--- OUTSIDE RECORDS SUMMARY | ~2019-11-17 | XMS | Encounter Summary ---
Demographics + + + | Address | [address] | | | [place] [address] | + + + | Home Phone [...] Team Providers + +------+ + | Care Shear Setter Name | Role | Phone | + +------+ + | Pedrito Gutierrez MD | PCP | | + +------+ + Encounter Details +--------+ + + + + | Date | Type | Department | Care Team | Description | +--------+ + + + + | 11/24/ | Respiratory | | Other, Faculty | | | 2003 | | | [phone] | | | | Therapy[facility] | | [...]
--- OUTSIDE RECORDS SUMMARY | ~2019-11-17 | XMS | Encounter Summary ---
Demographics + + + | Address | [address] | | | [place] [address] | + + + | Home Phone [...] Team Providers + +------+ + | Care Import Customer Service Manager Name | Role | Phone [...] + + | 10/19/ | Telephone | [facility] | Alanis, | Lab Order | | 2017 | | MEDICINE [address] [place] [address] | MD Petrona | | | | | [facility] | [address] [place] [address] | | | | | [place] [address] | [place] [address] | | | | | [phone] | [phone] | | | | | | | [...] | | | | | [place] [address] | | | | | | [phone] | | | | | | | | +--------+---------+ + + + | 12/20/ | Office | Otolaryngology | Ulysses Genao MD | | | 2020 | Visit | | [address] | | | | | | [address] [place], | | | | | | [place] [address] | | | | | | [phone] | | | | | | | | +--------+---------+ + + + | 02/15/ | Office | Internal Medicine | Alanis, | | | 2019 | Visit | | MD Petrona | | | | | | [address] | | | | | | [place] [address] | | | | | | [phone] | | | | | | | | +--------+---------+ + + + documented as of this encounter Visit Diagnoses Not on filedocumented in this encounter"
--- OUTSIDE RECORDS SUMMARY | ~2019-11-17 | XMS | Encounter Summary ---
Demographics + + + | Address | [address] | | | [place] [address] | + + + | Home Phone [...] Providers + +------+ + | Care Sales Floor Manager Name | Role | Phone [...] + + | 08/20/ | Telephone | [facility] | Alanis, | Other | | 2018 | | MEDICINE [address] [place] [address] | MD Petrona | | | | | [facility] | [address] [place] [address] | | | | | [place] [address] | [place] [address] | | | | | [phone] | [phone] | | | | | | | [...] | | | | | [place] [address] | | | | | | [phone] | | | | | | | | +--------+---------+ + + + | 12/20/ | Office | Otolaryngology | Ulysses Genao MD | | | 2019 | Visit | | [address] | | | | | | [address] [place], | | | | | | [place] [address] | | | | | | [phone] | | | | | | | | +--------+---------+ + + + | 02/15/ | Office | Internal Medicine | Alanis, | | | 2019 | Visit | | MD Petrona | | | | | | [address] | | | | | | [place] [address] | | | | | | [phone] | | | | | | | | +--------+---------+ + + + documented as of this encounter Visit Diagnoses Not on filedocumented in this encounter"
--- OUTSIDE RECORDS SUMMARY | ~2019-11-17 | XMS | Encounter Summary ---
Demographics + + + | Address | [address] | | | [place] [address] | + + + | Home Phone [...] Team Providers + +------+ + | Care Alpaca Farmer Name | Role | Phone | [...] Rd | | | | | | [place], [place] | | | | | | [address] | | | +--------+ + + + [...]
--- OUTSIDE RECORDS SUMMARY | ~2019-11-17 | XMS | Encounter Summary ---
Demographics + + + | Address | [address] | | | [place] [address] | + + + | Home Phone [...] Providers + +------+ + | Care Guard Entrance Registrar Name | Role | Phone | [...] | Procedures | [address] | [place] | | | | | CONSULT TO | [address] | [address] | | | | | GI PROCEDURE | Rd | floor | | | | | UNIT: EGD | [place], [place] | [place], [place] | | | | | | [address] | [address] | | | | | | Phone: | Phone: | | | | | | [phone] | [phone] | | | | | | | Fax: | | | | | | | [phone] | +--------+--------+ + + + + Consultation [...] | | | | | UNIT: | [place] | [place] | | | | | COLONOSCOPY | [address] | [address] | | | | | | Phone: | Phone: | | | | | | [phone] | [phone] | | | | | | | Fax: | | | | | | | [phone] | +--------+--------+ + + + + Reason [...] + + | 03/10/ | Office | [facility] Division of | Carlos Arreola, | Chronic Abdominal | | 2005 | Visit | Gastroenterology/Hep | MD [address] | Pain; Iron | | | | atology [address] | Deficiency | | | | [address] | [place] [address] | | | | | Mailcode: [id number] | [phone] | | | | | [facility] | | | | | | [address] | | | | | | [place], [place] | | | | | | [address] | | | | | | [phone] | | | +--------+---------+ + + + [...] so by calling and asking for my computer lab assistant Cierra Alexis. I always do my [...] other questions or issues. Carlos Arreola MD. [facility] Division Of Gastroenterology/Hepatology [address] [place] [address] [place] [address] documented in this encounter Progress Anup Plascencia [...] prior heavy use 20 -25yrs ago ('tended bar tacker then'). Lost 200lbs psot bypass surgery, has [...] + + + + + | [facility] | [address] | [place] [address] | | | PATHOLOGY | [address] | | | + + + + + | [facility] | [address] | [place] [address] | | | PATHOLOGY | [address] [...] + + + + + | [facility] | [address] [facility] | [place] [address] | | | PATHOLOGY | [address] | | | + + + + + | [facility] | [address] [facility] | [place] [address] | | | PATHOLOGY | [address] [...] | [facility] DEPARTMENT OF | [address] | [place] [address] | | | PATHOLOGY | [address] | | | + + + + + | [facility] | [facility] [address] | [place] [address] | | | PATHOLOGY | [address] [...] DEPARTMENT OF | [address] | [place] [address] | | | PATHOLOGY | [address] | | | + + + + + | [facility] | [address] | [place] [address] | | | PATHOLOGY | [address] [...] | | | | | [facility]. | | | | + + + + + + + + | Specimen | + + | | + + + + + + + | Performing | Address | City/State/Zipcode | Phone Number | | Organization | | | | + + + + + | [facility] | [address] | [place] [address] | | | LABORATORY | | | [...] | | | | | performed at [place] | | | | | | [facility] | | | | | | Laboratory | | | | + + + + + + + + | Specimen | + + | | + + + + + + + | Performing | Address | City/State/Zipcode | Phone Number | | Organization | | | | + + + + + | [facility] | [address] | [place] [address] | | | LABORATORY | | | | + + + + + documented in this encounter Visit Diagnoses + + | Diagnosis | + + | Chronic abdominal pain Abdominal pain, unspecified site | + + | Iron deficiency Other disorders of iron metabolism | + + documented in this encounter"
--- OUTSIDE RECORDS SUMMARY | ~2019-11-17 | XMS | Encounter Summary ---
[...] Providers + +------+ + | Care Typing Element Machine Operator Name | Role | Phone [...] + | 02/10/ | Refill | [facility] | Alanis, | Medication Refill | | 2018 | | MEDICINE [address] [place] [address] | MD Petrona | | | | | [facility] | [address] [place] [address] | | | | | [place] [address] | [place] [address] | | | | | [phone] | [phone] | | | | | | | [...] | | | | | [place] [address] | | | | | | [phone] | | | | | | | | +--------+---------+ + + + | 12/20/ | Office | Otolaryngology | Ulysses Genao MD | | | 2019 | Visit | | [address] | | | | | | [address] [place], | | | | | | [place] [address] | | | | | | [phone] | | | | | | | | +--------+---------+ + + + | 02/15/ | Office | Internal Medicine | EmmyAlberto, | | | 2019 | Visit | | MD Petrona | | | | | | [facility] [address] | | | | | | [place] [address] | | | | | | [phone] | | | | | | | | +--------+---------+ + + + documented as of this encounter Visit Diagnoses + + | Diagnosis | + + | Nausea Nausea alone | + + documented in this encounter"
--- OUTSIDE RECORDS SUMMARY | ~2019-11-17 | XMS | Encounter Summary ---
Demographics + + + | Address | [address] | | | [place] [address] | + + + | Home Phone [...] Providers + +------+ + | Care District Supervisor Name | Role | Phone | [...] + + | 02/22/ | Telephone | [facility] | Alanis, | Medication Question | | 2018 | | MEDICINE [address] [place] [address] | MD Petrona | | | | | [facility] | [address] [place] [address] | | | | | [place] [address] | [place] [address] | | | | | [phone] | [phone] | | | | | | | [...] | | | | | [place] [address] | | | | | | [phone] | | | | | | | | +--------+---------+ + + + | 12/20/ | Office | Otolaryngology | Ulysses Genao MD | | | 2019 | Visit | | [address] | | | | | | [address] [place] | | | | | | [place] [address] | | | | | | [phone] | | | | | | | | +--------+---------+ + + + | 02/15/ | Office | Internal Medicine | Alanis, | | | 2019 | Visit | | MD Petrona | | | | | | [address] | | | | | | [place] [address] | | | | | | [phone] | | | | | | | | +--------+---------+ + + + documented as of this encounter Visit Diagnoses Not on filedocumented in this encounter"
--- OUTSIDE RECORDS SUMMARY | ~2019-11-17 | XMS | Encounter Summary ---
Demographics + + + | Address | [address] | | | [place] [address] | + + + | Home Phone [...] Providers + +------+ + | Care Product Transfer Pumper Name | Role | Phone | [...] + + | 03/04/ | Telephone | [facility] | Alanis, | Referral; Medication | | 2016 | | [address] | MD Petrona | Refill | | | | [facility] | [address] [place] [address] | | | | | [place] [address] | [place] [address] | | | | | [phone] | [phone] | | | | | | | [...] | | | | | [place] [address] | | | | | | [phone] | | | | | | | | +--------+---------+ + + + | 12/20/ | Office | Otolaryngology | Ulysses Genao MD | | | 2019 | Visit | | [address] | | | | | | [address] [place] | | | | | | [place] [address] | | | | | | [phone] | | | | | | | | +--------+---------+ + + + | 02/15/ | Office | Internal Medicine | Alanis, | | | 2019 | Visit | | MD Petrona | | | | | | [address] | | | | | | [place] [address] | | | | | | [phone] | | | | | | | | +--------+---------+ + + + documented as of this encounter Visit Diagnoses Not on filedocumented in this encounter"
--- OUTSIDE RECORDS SUMMARY | ~2019-11-17 | XMS | Encounter Summary ---
Demographics + + + | Address | [address] | | | [place] [address] | + + + | Home Phone [...] | [address] | [address] [place], | Myelopathy, Lumbar | | | | [address] Mailcode: | [place] [address] | Region; Herniated | | | | [facility] [place] [facility] | | Lumbar | | | | Health and Healing, | | Intervertebral Disc | | | | | | L4-5; Fibromyalgia | | | | Floor [place], [place] | | syndrome 729.1 | | | | [address] | | | | | | [phone] | | | +--------+---------+ + + + [...] December 02, 2006 Patient: Belinda J Shefali, [id number], 1960 I agree with the proposed Physical Therapy Treatment Plan. Provider: DELFINA MOLINA ANP Nathalia Garrett - 007 11:16 AM PDT Physical Therapy Medicare Progress Note Date: 11/27/2006 Belinda Barnes Shefali [id number]. 1960 Start of Care: 11/24/2006 Referring Provider: [...] the free margin and undersurface of the vinegar maker horn of the medial meniscus suspicious for [...] gait using bilateral lofstrand crutches Patient's goals: nursing home: Ambulation with single based cane Treatment: Patient [...] are to increased strength and endurance . jail goals: Improve gait so patient can ambulate with single based cane. Plan: Patient will return for f/u visit in 2 weeks and at that time will progress in core, hip, and knee strengthening regime. Treatment began: 1100 Treatment ended: 1200 Nathalia Arora, Physical Therapist License #[id number] documented in this encoun ter Plan of Treatment + + +--------+ + + | Name | Type | Priori | Associated Diagnoses | Order Schedule | | | | ty | | | + + +--------+ + + | [place] [facility] | Procedures | Routin | [...]
--- OUTSIDE RECORDS SUMMARY | ~2019-11-17 | XMS | Encounter Summary ---
Demographics + + + | Address | [address] | | | [place] [address] | + + + | Home Phone [...] Team Providers + +------+ + | Care Vulcanizer Operator Name | Role | Phone | [...] as of this encounter Progress Notes Interface, Shear Tender In - 01/13/2005 9:03 AM PDT [id number] [facility] Date: 01/02/2005 Clinic: [facility] Subjective: Ms. Meehan presents today on a walk-in basis for evaluation of some discharge from her panniculectomy incisions over her medial thighs. She reports that she was in town today from [place], [place], to get some labs drawn at [facility] and decided to stop by the [...] Sree Riley M.D. Chris Padgett M.D. / [id number] / [id number] / [id number] / [id number] C: 01/08/2005 cmw documented i n this encounter Plan of Treatment Not on filedocumented as of this encounter Visit Diagnoses Not on filedocumented in this encounter"
--- OUTSIDE RECORDS SUMMARY | ~2019-11-17 | XMS | Encounter Summary ---
Demographics + + + | Address | [address] | | | [place] [address] | + + + | Home Phone [...] Providers + +------+ + | Care Airline Pilot Flight Instructor Name | Role | Phone | [...] + | 04/25/ | Telephone | [facility] | Alanis, | Paperwork; Pre-Op | | 2018 | | MEDICINE [address] [place] [address] | MD Petrona | | | | | [facility] | [address] [place] [address] | | | | | [place] [address] | [place] [address] | | | | | [phone] | [phone] | | | | | | | [...] | | | | | [place] [address] | | | | | | [phone] | | | | | | | | +--------+---------+ + + + | 12/20/ | Office | Otolaryngology | Ulysses Genao MD | | | 2019 | Visit | | [address] | | | | | | [address] [place] | | | | | | [place] [address] | | | | | | [phone] | | | | | | | | +--------+---------+ + + + | 02/15/ | Office | Internal Medicine | Alanis, | | | 2019 | Visit | | MD Petrona | | | | | | [address] | | | | | | [place] [address] | | | | | | [phone] | | | | | | | | +--------+---------+ + + + documented as of this encounter Visit Diagnoses Not on filedocumented in this encounter"
--- OUTSIDE RECORDS SUMMARY | ~2019-11-17 | XMS | Encounter Summary ---
Demographics + + + | Address | [address] | | | [place] [address] | + + + | Home Phone [...] Providers + +------+ + | Care Collar Padder Blindstitch Name | Role | Phone | + [...] + + | 05/14/ | Telephone | [facility] | Erich Conley MD | Medication Refill | | 2018 | | MEDICINE [address] [place] [address] | [address] [facility] | | | | | Street [facility] | [address] | | | | | [place] [address] | [address] | | | | | [phone] | | | +--------+ + + + [...] | | | | | [place] [address] | | | | | | [phone] | | | | | | | | +--------+---------+ + + + | 12/20/ | Office | Otolaryngology | Ulysses Genao MD | | | 2019 | Visit | | [address] | | | | | | [address] [place], | | | | | | [place] [address] | | | | | | [phone] | | | | | | | | +--------+---------+ + + + | 02/15/ | Office | Internal Medicine | Alanis, | | | 2019 | Visit | | MD Petrona | | | | | | [address] | | | | | | [place] [address] | | | | | | [phone] | | | | | | | | +--------+---------+ + + + documented as of this encounter Visit Diagnoses Not on filedocumented in this encounter"
--- OUTSIDE RECORDS SUMMARY | ~2019-11-17 | XMS | Encounter Summary ---
[...] Providers + +------+ + | Care Fur Vault Attendant Name | Role | Phone | [...] | | | | [address] | [place] [address] | | | | | Mailcode: [id number] | [phone] | | | | | [facility] | | | | | | [address] | | | | | | [place], [place] | | | | | | [address] | | | | | | [phone] | | | +--------+ + + + [...]
--- OUTSIDE RECORDS SUMMARY | ~2019-11-17 | XMS | Encounter Summary ---
Demographics + + + | Address | [address] | | | [place] [address] | + + + | Home Phone [...] + +------+ + | Care Equal Opportunity Assistant Name | Role | Phone | [...] | | Center at [facility] [address] | CABLE MECHANIC [address] | | | | | [address] | , [address] | | | | | Mailcode: Center | [place], [place] | | | | | [facility] and | [address] | | | | | Healing, [address] | [phone] | | | | | [place], [place] | | | | | | [address] | | | | | | [phone] | | | +--------+ + + + [...]
--- OUTSIDE RECORDS SUMMARY | ~2019-11-17 | XMS | Encounter Summary ---
Demographics + + + | Address | [address] | | | [place] [address] | + + + | Home Phone [...] Providers + +------+ + | Care Laboratory Operations Coordinator Name | Role | Phone | [...] | | | [facility] | [place], [place] | | | | | [address] | [address] | | | | | [address] | [phone] | | | | | Physician's | | | | | | Pavilion, 1st floor | | | | | | [place], [place] | | | | | | [address] | | | | | | [phone] | | | +--------+ + + + [...]
--- OUTSIDE RECORDS SUMMARY | ~2019-11-17 | XMS | Encounter Summary ---
Demographics + + + | Address | [address] | | | [place] [address] | + + + | Home Phone [...] Providers + +------+ + | Care Certified Driver Examiner Name | Role | Phone | [...] Right shoulder pain, | | 2018 | | ORTHOPEDIC SURGERY | MD Eliud [address] | unspecified | | | | [address] [facility] | [place]QUES | chronicity (Primary | | | | SENT[place] Oropeza | [place] [address] | Dx) | | | | [address] | [phone] | | | | | [phone] | | | +--------+ + + + [...] | | | | | [place] [address] | | | | | | [phone] | | | | | | | | +--------+---------+ + + + | 12/20/ | Office | Otolaryngology | Ulysses Genao MD | | | 2019 | Visit | | [address] | | | | | | [address] [place], | | | | | | [place] [address] | | | | | | [phone] | | | | | | | | +--------+---------+ + + + | 02/15/ | Office | Internal Medicine | Alanis, | | | 2019 | Visit | | MD Petrona | | | | | | [address] | | | | | | [place] [address] | | | | | | [phone] | | | | | | | [...]
--- OUTSIDE RECORDS SUMMARY | ~2019-11-17 | XMS | Encounter Summary ---
Demographics + + + | Address | [address] | | | [place] [address] | + + + | Home Phone [...] + +------+ + | Care Environmental Services Worker Name | Role | Phone | [...] | | | | | | Mailcode: [facility] | | | | | | | [facility] | | | | | | | for Health | | | | | | | and Healing, | | | | | | | Building [address] | | | | | | | [facility] [place] | | | | | | | [address] | | | | | | | Phone: | | | | | | | [phone] | | | | | | | Fax: | | | | | | | [phone] | +--------+--------+ + + + + Encounter Details +--------+ + + + + | Date | Type | Department | Care Team | Description | +--------+ + + + + | 09/14/ | Hospital | [facility] PROCEDURE | Olivia, | | | 2008 | Encounter | [address] | MD Pedrito | | | | | Bethanie Mailcode: [facility] | | | | | | [facility] | | | | | | Health and Healing, | | | | | | [address] | | | | | | [facility] [place] | | | | | | [address] | | | | | | [phone] | | | +--------+ + + + [...] Discharge Instructions Instructions Marleen Hogan - 09/14/2008 [facility] [address] [place] [address] Toll Free ext: [phone] Home Care Instructions after EGD (Upper Endoscopy) [...] or on weekends and holidays Hospital [facility] and have the GI doctor regional project manager paged. The provider who performed your [...] Meehan is a 48 y.o. female MR# [id number] presents today for an EG D to [...] 01/22/2006 Tramadol 01/22/2006 Morphine Clarithromycin Hives 06/28/2007 Uucgmuz-gjkprxtngx-mvr-caff 08/28/2008 See procedure note 09/14/2008 documented in [...]
--- OUTSIDE RECORDS SUMMARY | ~2019-11-17 | XMS | Encounter Summary ---
Demographics + + + | Address | [address] | | | [place] [address] | + + + | Home Phone [...] Providers + +------+ + | Care Marketing Financial Analyst Name | Role | Phone | [...] [address] | | | | | | [place], [place] | | | | | | [address] | | | | | | [phone] | | | +--------+ + + + [...] | [facility] DEPARTMENT OF | [address] | [place] [address] | | | PATHOLOGY | [address] | | | + + + + + | [facility] DEPARTMENT | [address] | [place] [address] | | | PATHOLOGY | [address] | | | + + + + + PROTHROMBIN TIME (03/10/2006 2:42 PM PDT) + + + + + + | Component | Value | Ref Range | Performed | Pathologist | | | | | At | Signature | + + + + + + | INR | 1.01Comment: | 0.90 - 1.20 INR | [facility] | | | | PT INR [...] + + + + + | [facility] | [address] [place] [address] | [place] [address] | | | PATHOLOGY | [address] | | | + + + + + | [facility] | [address] [facility] | [place] [address] | | | PATHOLOGY | [address] [...] DEPARTMENT OF | [address] | [place] [address] | | | PATHOLOGY | [address] | | | + + + + + | [facility] DEPARTMENT OF | [address] | [place] [address] | | | PATHOLOGY | [address] [...] + + + | [facility] DEPARTMENT | [address] [facility] | [place] [address] | | | PATHOLOGY | [address] | | | + + + + + | [facility] | [address] [facility] | [place] [address] | | | PATHOLOGY | [address] [...] + + + | [facility] | [address] | [place] [address] | | | LABORATORY | | | [...] | | | | | performed at [facility] | | | | | [facility] [...] + + + | [facility] | [address] | [place] [address] | | | LABORATORY | | | | + + + + + documented in this encounter Visit Diagnoses + + | Diagnosis | + + | Chronic abdominal pain Abdominal pain, unspecified site | + + | Iron deficiency Other disorders of iron metabolism | + + documented in this encounter"
--- OUTSIDE RECORDS SUMMARY | ~2019-11-17 | XMS | Encounter Summary ---
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 I have given her [...] 4 months. Caitlin Rivera M.S., F.N.P. / [id number] / [id number] / [id number] / [id number] cc: Pedrito Gutierrez M.D. [address] [place], [place] [email or web address] signed by Interface, Osteologist In at 01/12/2005 6:3 2 AM PDTdocumented in this encounter Plan of Treatment Not on filedocumented as of this encounter Visit Diagnoses Not on filedocumented in this encounter"
--- OUTSIDE RECORDS SUMMARY | ~2019-11-17 | XMS | Encounter Summary ---
Demographics + + + | Address | [address] | | | [place] [address] | + + + | Home Phone [...] Team Providers + +------+ + | Care Tripoler Name | Role | Phone | + [...] + + | 09/12/ | Telephone | [facility] Comprehensive | Miranda Lambert, | Medication | [...] | | | | | | Floor [place], [place] | | | | | | [address] | | | | | | [phone] | | | +--------+ + + + [...]
--- OUTSIDE RECORDS SUMMARY | ~2019-11-17 | XMS | Encounter Summary ---
Demographics + + + | Address | [address] | | | [place] [address] | + + + | Home Phone [...] Team Providers + +------+ + | Care Park Interpreter Name | Role | Phone | [...] | 2006 | Visit | [facility] | [address] | Myelopathy, Lumbar | | | | [address] [place], | Region; Herniated | | | | [address] Kovacs Mailcode: | [place] [address] | Lumbar | | | | CH15P [place] [facility] | | Intervertebral Disc | | | | Health and Healing, | | L4-5; Neck Pain; | | | | | | Fibromyalgia | | | | Floor [place], [place] | | syndrome 729.1 | | | | [address] | | | | | | [phone] | | | +--------+---------+ + + + [...] Medicare Progress Note Date: 08/26/2006 Belinda Meehan [id number]. 1960 Start of Care: 06/23/2006 Referring Provider: [...] and when she is finished at the [facility] with physical therapy advised to become [...] + + +--------+ + + | AL THERAPEUTIC | Procedures | Routin | Spondylosis [...]
--- OUTSIDE RECORDS SUMMARY | ~2019-11-17 | XMS | Encounter Summary ---
Demographics + + + | Address | [address] | | | [place] [address] | + + + | Home Phone [...] Providers + +------+ + | Care Locomotive Mechanic Apprentice Name | Role | Phone [...] + + | 06/21/ | Office | [facility] Comprehensive | Delfina Molina, | LBP (Low Back Pain) | | 2008 | Visit | Pain Center at | ANP | (Primary Dx); Spinal | | | | [facility] | | Fusion Lumbar spine | | | | [address] | | ; Hx Arthroplasty | | | | Mailcode: CH15P | | of both Knees; | | | | Center for [facility] | | Fibromyalgia | | | | and Healing, | | syndrome 729.1; | | | | | | Abdominal Pain, | | | | Floor [place], [place] | | dumping syndrome Hx | | | | [address] | | of gastric bypass; | | | | [phone] | | Dumping Syndrome; | | | [...] Belinda Meehan is a 48 y.o. female [facility] Comprehensive Pain Center Return Visit [...] a migraine sp ecialist this week in [place], Dr Lucio Nichols. Next area of chronic [...] drawing has be completed, which I reviewed. [facility] Brief Pain Inventory: (ten= worst possible [...] 3. Mental Health care: Dr Ogden psychology [facility] Pain Center last visit today [...] 300 mg) by oral route once daily txsqsjqtzo-igkbvtkfydyoc-xgshoprm (FIORICET) 50-325-40 mg Oral Tablet take 2 [...] 278 01/18 Paniculectomy Hx lumbar fusion 05/2008 L1-S5riltuq with bone spur removals Family History Problem [...] psychologist when ever sh e comes to [place] for medical care. She has a strong [...] [facility] Mail code CH 4P [facility] [address] [facility] [address] Ty Mendez - 12/2008 9:11 AM PSTCMA History: PMH/PSH/SH/FH review Patient had lumbar fusion in May 22. She also reports tooth abcess. She has script for an tibiotic tx waiting for her in [place]. 1. Has your pain changed from your [...]
--- OUTSIDE RECORDS SUMMARY | ~2019-11-17 | XMS | Encounter Summary ---
Demographics + + + | Address | [address] | | | [place] [address] | + + + | Home Phone [...] Providers + +------+ + | Care General Intern Name | Role | Phone | [...] [place] | | | | | | [place], [place] | [facility] | | | | | | [address] | [address] | | | | | | | [place], [place] | | | | | | | [address] | | | | | | | Phone: | | | | | | | [phone] | | | | | | | Fax: | | | | | | | [phone] | +--------+--------+ + + + + Encounter Details +--------+---------+ + + + | Date | Type | Department | Care Team | Description | +--------+---------+ + + + | 06/23/ | Office | [facility] Comprehensive | Adrien Smith, | Fibromyalgia | | 2013 | Visit | Pain Center at | [address] [facility] | syndrome 729.1 | | | | [facility] | [facility] [id number] | (Primary Dx); LBP | | | | [address] | [place], [place] | (low back pain); | | | | Mailcode: CH15P | [address] | Chronic Bilateral | | | | [facility] | [phone] | Shoulder Pain; Post | | | | and Healing, | | laminectomy | | | | | | syndrome; Chronic | | | | Floor [place], [place] | | migraine | | | | [address] | | | | | | [phone] | | | +--------+---------+ + + + [...] evaluation of a patient with fibromyalgia, the [facility] Fibromyalgia clinic suggests laboratory screening to [...] suggests that fibromyalgia patients may have reduced BEATER HEAD opioid receptors (Reji is RE, et al. Decreased central mu-opioid receptor availability in fibromyalgia. J Neurosci . 27(37):44375-1, 2006Feb 24.) and there are no controlled [...] documented in our notes. ADRIEN SMITH MD Visual And Stock Associate, [facility] Flaking Roll Operator, Pain Medicine Professor, Anesthesiology & Perioperative Medicine Brandon Phipps Md - 06/23/2013 2:21 PM PST [facility] Comprehensive Pain Center Return Visit with Dr. [...] as she has worked with him be [facility]. This visit can be in [...] before her lumbar surgeries and recently in [place]. She has short-term relief from thes e treatments. I would like her to return to see Dr. Adrien Smith to discuss these treatment options. Consult to [facility] physical therapy: A supervised physical therapy [...] has been treated at the [facility] for back pain with the following problem [...] and a pain drawing which I reviewed. 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 Meehan reports no side effects. The Review of Systems provided by Ms. Meehan and documented by the [facility] was reviewed. Austyn tional comments: 1. [...] evaluation of a patient with fibromyalgia, the [facility] Fibromyalgia clinic suggests laboratory screening to [...] suggests that fibromyalgia patients may have reduced BEATER HEAD opioid receptors (Xavi RE, et al. Decreased central mu-opioid receptor availability in fib romyalgia. J Neurosci. 27(37):70593-9, 2006Feb 24.) and there are no controlled [...]
--- OUTSIDE RECORDS SUMMARY | ~2019-11-17 | XMS | Encounter Summary ---
Demographics + + + | Address | [address] | | | [place] [address] | + + + | Home Phone [...] Team Providers + +------+ + | Care Sampler Pickup Name | Role | Phone | + [...] as of this encounter Progress Notes Interface, Filenet Admin In - 01/11/2005 8:56 PM PDTClinic Date: [...] bypass surgery and will be admitted to [facility] for this procedure on November 22, 2003. [...] Ester Romero M.D. Issac Meeks M.D. / [id number] / [id number] / [id number] / [id number] Tdocumented in this encounter Plan of Treatment Not on filedocumented as of this encounter Visit Diagnoses Not on filedocumented in this encounter"
--- OUTSIDE RECORDS SUMMARY | ~2019-11-17 | XMS | Encounter Summary ---
Demographics + + + | Address | [address] | | | [place] [address] | + + + | Home Phone [...] Providers + +------+ + | Care Construction Specialist Name | Role | Phone | [...] as of this encounter Progress Notes Interface, Treatment Specialist In - 01/12/2005 6:20 AM PDT [id number] GEOVANNI [facility] Date: 11/18/2004 Clinic: General [...] patient to send pictures to our financial professional and yard associate for evaluation for medicare for panniculectomy. Described [...] authorization for panniculectomy. Melisa Thorne / SHARIF [id number] / [id number] / [id number] / [id number] cc: Chris Padgett M.D. Joanna Valdez MD [facility] [address] [place] [address] Electronically signed by Kenisha Melton 11-26-2004 05:00:55 PM documented i n this encounter Plan of Treatment Not on filedocumented as of this encounter Visit Diagnoses Not on filedocumented in this encounter"
--- OUTSIDE RECORDS SUMMARY | ~2019-11-17 | XMS | Encounter Summary ---
Demographics + + + | Address | [address] | | | [place] [address] | + + + | Home Phone [...] Providers + +------+ + | Care Collar Feller Name | Role | Phone | + +------+ + | Petrona Thapa | PCP | | | MD | | | + +------+ + Encounter Details +--------+ + + + + | Date | Type | Department | Care Team | Description | +--------+ + + + + | 09/01/ | Abstract | [facility] | Provider, | | | 2018 | | GASTROENTEROLOGY | MD Colin [address] | | | | | [address] [facility] | Sulma Boyd | | | | | [address] [place] | [place] [address] | | | | | [address] | | | | | | [phone] | | | +--------+ + + + [...] | | | | | [place] [address] | | | | | | [phone] | | | | | | | | +--------+---------+ + + + | 12/20/ | Office | Otolaryngology | Ulysses Genao MD | | | 2019 | Visit | | [address] | | | | | | [address] [place], | | | | | | [place] [address] | | | | | | [phone] | | | | | | | | +--------+---------+ + + + | 02/15/ | Office | Internal Medicine | Alanis, | | | 2019 | Visit | | MD Petrona | | | | | | [address] [place] | | | | | | [place] [address] | | | | | | [phone] | | | | | | | | +--------+---------+ + + + documented as of this encounter Visit Diagnoses Not on filedocumented in this encounter"
--- OUTSIDE RECORDS SUMMARY | ~2019-11-17 | XMS | Encounter Summary ---
Demographics + + + | Address | [address] | | | [place] [address] | + + + | Home Phone [...] Team Providers + +------+ + | Care Margin Analyst Name | Role | Phone | [...] | | | | Clinical Nutrition | [place], [place] | | | | | [address] | [address] | | | | | Loop Mailcode: OPC5 | [phone] | | | | | Outpatient Clinic | | | | | | [facility] | | | | | | [place] [address] | | | | | | [phone] | | | +--------+ + + + [...] [facility] | [address] | [place] [address] | | | PATHOLOGY | [address] | | | + + + + + | [facility] | [facility] | [place] [address] | | | PATHOLOGY | [address] | | | + + + + + documented in this encounter Visit Diagnoses Not on filedocumented in this encounter"
--- OUTSIDE RECORDS SUMMARY | ~2019-11-17 | XMS | Encounter Summary ---
Demographics + + + | Address | [address] | | | [place] [address] [...] Providers + +------+ + | Care Telephone Lines Repairer Name | Role | Phone | [...] Rd | | | | | [place], [place] | [place], [place] | | | | | [address] | [address] | | | | | [phone] | [phone] | | | | | | | [...] | | + +---------+ + + | [facility] DEPARTMENT OF | | | | | RADIOLOGY | | | | + +---------+ + + documented in this encounter Visit Diagnoses Not on filedocumented in this encounter"
--- OUTSIDE RECORDS SUMMARY | ~2019-11-17 | XMS | Encounter Summary ---
Demographics + + + | Address | [address] | | | [place] [address] | + + + | Home Phone [...] Team Providers + +------+ + | Care Vender Name | Role | Phone | + [...] [address] | | | | | [facility] | [place], [place] | | | | | [address] | [address] | | | | | [address] | [phone] | | | | | [facility] | | | | | | Physician's | | | | | | Pavilion [place], | | | | | | [place] [address] | | | | | | [phone] | | | +--------+--------+ + + + [...]
--- OUTSIDE RECORDS SUMMARY | ~2019-11-17 | XMS | Encounter Summary ---
Demographics + + + | Address | [address] | | | [place] [address] | + + + | Home Phone [...] Providers + +------+ + | Care Candy Cooker Helper Name | Role | Phone | [...] | | | | Clinical Nutrition | [place], [place] | | | | | [address] | [address] | | | | | Loop Mailcode: OPC5 | [phone] | | | | | Outpatient Clinic | | | | | | [facility] | | | | | | [place] [address] | | | | | | [phone] | | | +--------+ + + + [...] + + + | [facility] | [address] | [place] [address] | | | LABORATORY | | | [...] + + + | [facility] | [address] | [place] [address] | | | LABORATORY | | | [...] + + | [facility] DEPARTMENT OF | [address] | [place] [address] | | | PATHOLOGY | [address] | | | + + + + + | [facility] DEPARTMENT OF | [address] | [place] [address] | | | PATHOLOGY | [address] [...] DEPARTMENT OF | [address] | [place] [address] | | | PATHOLOGY | [address] | | | + + + + + | [facility] DEPARTMENT OF | [address] | [place] [address] | | | PATHOLOGY | [address] | | | + + + + + documented in this encounter Visit Diagnoses Not on filedocumented in this encounter"
--- OUTSIDE RECORDS SUMMARY | ~2019-11-17 | XMS | Encounter Summary ---
Demographics + + + | Address | [address] | | | [place] [address] | + + + | Home Phone [...] Team Providers + +------+ + | Care Nut Packer Name | Role | Phone | [...] + + | 06/25/ | Refill | [facility] | Alanis, | Medication Refill | | 2018 | | MEDICINE [address] [place] [address] | MD Petrona | | | | | [facility] | [address] [place] [address] | | | | | [place] [address] | [place] [address] | | | | | [phone] | [phone] | | | | | | | [...] | | | | | [place] [address] | | | | | | [phone] | | | | | | | | +--------+---------+ + + + | 12/20/ | Office | Otolaryngology | Ulysses Genao MD | | | 2019 | Visit | | [address] | | | | | | [address] [place], | | | | | | [place] [address] | | | | | | [phone] | | | | | | | | +--------+---------+ + + + | 02/15/ | Office | Internal Medicine | EmmyAnjum, | | | 2019 | Visit | | MD Petrona | | | | | | [address] | | | | | | [place] [address] | | | | | | [phone] | | | | | | | | +--------+---------+ + + + documented as of this encounter Visit Diagnoses + + | Diagnosis | + + | Nausea - Primary Nausea alone | + + documented in this encounter"
--- OUTSIDE RECORDS SUMMARY | ~2019-11-17 | XMS | Encounter Summary ---
Demographics + + + | Address | [address] | | | [place] [address] | + + + | Home Phone [...] Team Providers + +------+ + | Care Footwear Stitcher Name | Role | Phone | [...] | | | | | site | [place] | [place] | | | | | Cervicalgia | [address] | [address] | | | | | Pain in [...] Spondylosis | | 2006 | Visit | [facility] | [address] [facility] | without Myelopathy | | | | [address] | [address] [place], | (Primary Dx); | | | | [address] Mailcode: | [place] [address] | Spondylosis with | | | | [facility] | | Myelopathy, Lumbar | | | | Health and Healing, | | Region; Herniated | | | | | | Lumbar | | | | Floor [place], [place] | | Intervertebral Disc; | | | | [address] | | Unspecified Myalgia | | | | [phone] | | and Myositis | +--------+---------+ + [...] Date: July 17, 2006 Patient: Belinda Meehan, [id number], 1960 I agree with the proposed Physical Therapy Treatment Plan. Provider: DELFINA MOLINA ANP elfina Molina - 007 6:13 PM PST.pt rlands Nathalia willson - 07/15/2006 4:28 PM PSTFormatting of this note might be different from the origin al. Physical Therapy Medicare Progress Note Date: 07/15/2006 Belinda Meehan [id number]. 1960 Start of Care: 06/23/2006 Referring Provider: [...]
--- OUTSIDE RECORDS SUMMARY | ~2019-11-17 | XMS | Encounter Summary ---
Demographics + + + | Address | [address] | | | [place] [address] | + + + | Home Phone [...] Team Providers + +------+ + | Care Tooler Name | Role | Phone | + [...] + | 02/17/ | Refill | [facility] | Alanis, | Medication Refill | | 2018 | | MEDICINE [address] [place] [address] | MD Petrona | | | | | [facility] | [address] [place] [address] | | | | | [place] [address] | [place] [address] | | | | | [phone] | [phone] | | | | | | | [...] | | | | | [place] [address] | | | | | | [phone] | | | | | | | | +--------+---------+ + + + | 12/20/ | Office | Otolaryngology | Ulysses Genao MD | | | 2019 | Visit | | [address] | | | | | | [address] [place], | | | | | | [place] [address] | | | | | | [phone] | | | | | | | | +--------+---------+ + + + | 02/15/ | Office | Internal Medicine | EmmyCarmen, | | | 2019 | Visit | | MD Petrona | | | | | | [address] | | | | | | [place] [address] | | | | | | [phone] | | | | | | | | +--------+---------+ + + + documented as of this encounter Visit Diagnoses + + | Diagnosis | + + | Chest pain, unspecified type | + + documented in this encounter"
--- OUTSIDE RECORDS SUMMARY | ~2019-11-17 | XMS | Encounter Summary ---
Demographics + + + | Address | [address] | | | [place] [address] | + + + | Home Phone [...] + + | 03/28/ | Refill | [facility] | Alanis, | Medication Refill | | 2016 | | MEDICINE [address] [place] [address] | MD Petrona | | | | | [facility] | [address] [place] [address] | | | | | [place] [address] | [place] [address] | | | | | [phone] | [phone] | | | | | | | [...] | | | | | [place] [address] | | | | | | [phone] | | | | | | | | +--------+---------+ + + + | 12/20/ | Office | Otolaryngology | Ulysses Genao MD | | | 2019 | Visit | | [address] [place] | | | | | | [address] [place], | | | | | | [place] [address] | | | | | | [phone] | | | | | | | | +--------+---------+ + + + | 02/15/ | Office | Internal Medicine | Alanis, | | | 2019 | Visit | | MD Petrona | | | | | | [address] [place] [address] [address] | | | | | | [place] [address] | | | | | | [phone] | | | | | | | | +--------+---------+ + + + documented as of this encounter Visit Diagnoses Not on filedocumented in this encounter"
--- OUTSIDE RECORDS SUMMARY | ~2019-11-17 | XMS | Encounter Summary ---
Demographics + + + | Address | [address] | | | [place] [address] | + + + | Home Phone [...] Team Providers + +------+ + | Care Stonemason Apprentice Name | Role | Phone | + +------+ + | Pedrito Gutierrez MD | PCP | | + +------+ + Encounter Details +--------+---------+ + + + | Date | Type | Department | Care Team | Description | +--------+---------+ + + + | 02/01/ | Office | Digestive Health | Chris Padgett, | Status Post | | 2006 | Visit | [place] [address] | [address] | Bariatric Surgery; | | | | Ave Mailcode: CH4S | [address] | Follow-Up | | | | [facility] | [place], [place] | Examination | | | | and Healing, | [address] | Following Surgery | | | | Building | [phone] | | | | | Floor [place], [place] | | | | | | [address] | | | | | | [phone] | | | +--------+---------+ + + + [...] history of intermittent abdominal pain comes to [facility] for 3 mo f/u evaluation with no [...] m/r/g Chest: CTA bilaterally Last edited by: RGACE LEAL (ThuFeb 01, 2007 Grace Ortiz Md [...]
--- OUTSIDE RECORDS SUMMARY | ~2019-11-17 | XMS | Encounter Summary ---
Demographics + + + | Address | [address] | | | [place] [address] | + + + | Home Phone [...] Providers + +------+ + | Care Entertainer & Comic Name | Role | Phone | + +------+ + | Pedrito Gutierrez MD | PCP | | + +------+ + Encounter Details +--------+---------+ + + + | Date | Type | Department | Care Team | Description | +--------+---------+ + + + | 02/01/ | Office | Digestive Health | Chris Padgett, | Status Post | | 2006 | Visit | [place] [address] | [address] | Bariatric Surgery; | | | | Ave Mailcode: CH4S | [address] | Follow-Up | | | | [facility] | [place], [place] | Examination | | | | and Healing, | [address] | Following Surgery | | | | Building | [phone] | | | | | Floor [place], [place] | | | | | | [address] | | | | | | [phone] | | | +--------+---------+ + + + [...] history of intermittent abdominal pain comes to [facility] for 3 mo f/u evaluation with [...]
--- OUTSIDE RECORDS SUMMARY | ~2019-11-17 | XMS | Encounter Summary ---
Demographics + + + | Address | [address] | | | [place] [address] | + + + | Home Phone [...] Team Providers + +------+ + | Care Sleep Scientist Name | Role | Phone | [...] + + | 02/01/ | Telephone | [facility] | Alanis, | Other (B12 shot) | | 2017 | | MEDICINE [address] [place] [address] | MD Petrona | | | | | [facility] | [address] [place] [address] | | | | | [place] [address] | [place] [address] | | | | | [phone] | [phone] | | | | | | | [...] | | | | | [place] [address] | | | | | | [phone] | | | | | | | | +--------+---------+ + + + | 12/20/ | Office | Otolaryngology | Ulysses Genao MD | | | 2019 | Visit | | [address] [place] | | | | | | [address] [place], | | | | | | [place] [address] | | | | | | [phone] | | | | | | | | +--------+---------+ + + + | 02/15/ | Office | Internal Medicine | Alanis, | | | 2019 | Visit | | MD Petrona | | | | | | [address] | | | | | | [place] [address] | | | | | | [phone] | | | | | | | | +--------+---------+ + + + documented as of this encounter Visit Diagnoses Not on filedocumented in this encounter"
--- OUTSIDE RECORDS SUMMARY | ~2019-11-17 | XMS | Encounter Summary ---
Demographics + + + | Address | [address] | | | [place] [address] | + + + | Home Phone [...] | | | [facility] | [place], [place] | | | | | [address] | [address] | | | | | [address] | [phone] | | | | | Physician's [address] | | | | | | Physician's | | | | | | [place], | | | | | | [place] [address] | | | | | | [phone] | | | +--------+---------+ + + + [...]
--- OUTSIDE RECORDS SUMMARY | ~2019-11-17 | XMS | Encounter Summary ---
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 | Uncertain Behavior | | | | [address] | Gastro [facility] | of Bone and | | | | Mailcode: PV430 | [address] | Articular Cartilage | | | | Physician's [address] | [address] [place], | (Primary Dx) | | | | [place], [place] | [place] [address] | | | | | [address] | [phone] | | | | | [phone] | | | +--------+ + + + [...]
--- OUTSIDE RECORDS SUMMARY | ~2019-11-17 | XMS | Encounter Summary ---
Demographics + + + | Address | [address] | | | [place] [address] | + + + | Home Phone [...] Providers + +------+ + | Care Rn Dialysis Name | Role | Phone | + [...] as of this encounter Progress Notes Interface, Information Security Officer In - 08/19/2005 2:05 AM PST [id number] [facility] Date: 07/24/2005 Clinic: Hematology/Oncology [...] or malignancies. 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 She still smokes 1/2 [...] are appreciated. No petechiae. Laboratory: Labs from [place]: Homocysteine 8.5 and SANIA negative. CBC: White [...] laboratory studies that have been obtained from [place], it does not appear that she has [...] E supplementation. Karen Gramza, Joanna Sellers M.D. transfer and pumphouse operator / HS [id number] / [id number] / [id number] / [id number] cc: Pedrito Gutierrez M.D. [facility] [address] [place] [address] FAX: [phone] Electronically signed by Lukasz Sellers 08-18-2005 01:27:53 PM documented i n this encounter Plan of Treatment Not on filedocumented as of this encounter Visit Diagnoses Not on filedocumented in this encounter"
--- OUTSIDE RECORDS SUMMARY | ~2019-11-17 | XMS | Encounter Summary ---
Demographics + + + | Address | [address] | | | [place] [address] | + + + | Home Phone [...] | | | [address] | [address] | | | | | [address] | [phone] | | | | | Physician's | | | | | | Pavilion, 1st floor | | | | | | [place], [place] | | | | | | [address] | | | | | | [phone] | | | +--------+--------+ + + + [...]
--- OUTSIDE RECORDS SUMMARY | ~2019-11-17 | XMS | Encounter Summary ---
Demographics + + + | Address | [address] | | | [place] [address] | + + + | Home Phone [...] Providers + +------+ + | Care Car Sales Consultant Name | Role | Phone [...] + + | 10/18/ | Telephone | [facility] | Ulysses Genao MD | Appointment (MRI) | | 2014 | | OTOLARYNGOLOGY [address] | [address] [facility] | | | | | [address] [facility] [address] | [address] [place], | | | | | [place] | [place] [address] | | | | | [address] | [phone] | | | | | [phone] | | | +--------+ + + + [...] | | | | | [place] [address] | | | | | | [phone] | | | | | | | | +--------+---------+ + + + | 12/20/ | Office | Otolaryngology | Ulysses Genao MD | | | 2019 | Visit | | [address] [place] | | | | | | [address] [place], | | | | | | [place] [address] | | | | | | [phone] | | | | | | | | +--------+---------+ + + + | 02/15/ | Office | Internal Medicine | Alanis, | | | 2019 | Visit | | MD Petrona | | | | | | [address] [place] | | | | | | [place] [address] | | | | | | [phone] | | | | | | | | +--------+---------+ + + + documented as of this encounter Visit Diagnoses Not on filedocumented in this encounter"
--- OUTSIDE RECORDS SUMMARY | ~2019-11-17 | XMS | Encounter Summary ---
Demographics + + + | Address | [address] | | | [place] [address] | + + + | Home Phone [...] Providers + +------+ + | Care Heating And Air Conditioning Mechanic Name | Role | Phone | + +------+ + | Petrona Thapa | PCP | | | MD | | | + +------+ + Encounter Details +--------+ + + + + | Date | Type | Department | Care Team | Description | +--------+ + + + + | 03/02/ | Hospital | [facility] | Alanis, | Neck pain on right | | 2018 | Encounter | [facility] | MD Petrona | side | | | | [address] [place] | [address] [place] | | | | | [place], [place] | [place] [address] | | | | | [address] | [phone] | | | | | [phone] | | | +--------+ + + + [...] | | | | | [place] [address] | | | | | | [phone] | | | | | | | | +--------+---------+ + + + | 12/20/ | Office | Otolaryngology | Ulysses Genao MD | | | 2019 | Visit | | [address] [place] | | | | | | [address] [place], | | | | | | [place] [address] | | | | | | [phone] | | | | | | | | +--------+---------+ + + + | 02/15/ | Office | Internal Medicine | Alanis, | | | 2019 | Visit | | MD Petrona | | | | | | [address] | | | | | | [place] [address] | | | | | | [phone] | | | | | | | [...] described above. Dictated and Signed by: Sarath Avial MD | | | Electronically signed: 03/02/2018 [...]
--- OUTSIDE RECORDS SUMMARY | ~2019-11-17 | XMS | Encounter Summary ---
Demographics + + + | Address | [address] | | | [place] [address] | + + + | Home Phone [...] Providers + +------+ + | Care Curb Hop Name | Role | Phone | [...] + + | 03/01/ | Telephone | [facility] | Alanis, | Other | | 2018 | | MEDICINE [address] [place] [address] | MD Petrona | | | | | [facility] | [address] [place] [address] | | | | | [place] [address] | [place] [address] | | | | | [phone] | [phone] | | | | | | | [...] | | | | | [place] [address] | | | | | | [phone] | | | | | | | | +--------+---------+ + + + | 12/20/ | Office | Otolaryngology | Ulysses Genao MD | | | 2019 | Visit | | [address] [place] | | | | | | [address] [place], | | | | | | [place] [address] | | | | | | [phone] | | | | | | | | +--------+---------+ + + + | 02/15/ | Office | Internal Medicine | Alanis, | | | 2019 | Visit | | MD Petroan | | | | | | [address] | | | | | | [place] [address] | | | | | | [phone] | | | | | | | | +--------+---------+ + + + documented as of this encounter Visit Diagnoses Not on filedocumented in this encounter"
--- OUTSIDE RECORDS SUMMARY | ~2019-11-17 | XMS | Encounter Summary ---
Demographics + + + | Address | [address] | | | [place] [address] | + + + | Home Phone [...] Providers + +------+ + | Care Law Firm Consultant Name | Role | Phone | [...] | | | | | hemorrhoid | [place], [place] | [address] | | | | | Rectal pain | [address] | [facility] | | | | | Procedures | | Rd [place], | | | | | CONSULT TO | | [place] | | | | | [place]OR[place]AL | | [address] | | | | | SURGERY | | Phone: | | | | | | | [phone] | | | | | | | Fax: | | | | | | | [phone] | +--------+--------+ + + + + Encounter [...] | | | | Mailcode: Center | [place], [place] | | | | | [facility] and | [address] | | | | | [facility] 2 | [phone] | | | | | [place], [place] | | | | | | [address] | | | | | | [phone] | | | +--------+---------+ + + + [...] stool. She had a normal colonoscopy at [facility] in 2005 PMH: Past Medical History Diagnosis [...] 08/2007 right knee Hx lumbar fusion 05/2008 [id number] with bone spur removals Hx appendectomy Hx [...] (Ciprofloxacin) Tramadol Morphine IM ( only in [facility]) made gut pain worse 08/27/06: Trial of oral MSIR caused leg swelling Clarithromycin Hives Mainly in the legs Zktndol-ubaccoixng-ihg-caff Balance problems Amitriptyline Grand mal seizures SH: [...]
--- OUTSIDE RECORDS SUMMARY | ~2019-11-17 | XMS | Encounter Summary ---
Demographics + + + | Address | [address] | | | [place] [address] | + + + | Home Phone [...] Providers + +------+ + | Care Head And Neck Surgeon Name | Role | Phone | [...] + | 04/09/ | Telephone | [facility] Division of | Carlos Arreola, | Erroneous Encounter | | 2005 | | Gastroenterology/Hep | [address] | - Disregard | | | | atology [address] | [address] | (duplicate call; see | | | | [address] | [place] [address] | other encounter ) | | | | Mailcode: PV310 | [phone] | | | | | Physician's Pavilion | | | | | | [address] | | | | | | [place], [place] | | | | | | [address] | | | | | | [phone] | | | +--------+ + + + [...]
--- OUTSIDE RECORDS SUMMARY | ~2019-11-17 | XMS | Encounter Summary ---
Demographics + + + | Address | [address] | | | [place] [address] | + + + | Home Phone [...] Providers + +------+ + | Care Sample Examiner Name | Role | Phone | [...] | | [facility] [address] | [address] | | | | | Sara [address] | , [address] | | | | | Mailcode: Center | [place], [place] | | | | | [facility] and | [address] | | | | | Healing, Building [address] | [phone] | | | | | [place], [place] | | | | | | [address] | | | | | | [phone] | | | +--------+ + + + [...]
--- OUTSIDE RECORDS SUMMARY | ~2019-11-17 | XMS | Encounter Summary ---
Demographics + + + | Address | [address] | | | [place] [address] | + + + | Home Phone [...] Providers + +------+ + | Care Admissions Dean Name | Role | Phone | [...] | | | | Clinical Nutrition | [place], [place] | | | | | [address] | [address] | | | | | Loop Mailcode: OPC5 | [phone] | | | | | Outpatient Clinic | | | | | | [facility] | | | | | | [place] [address] | | | | | | [phone] | | | +--------+ + + + [...] [facility] DEPARTMENT OF | [address] | [place] [address] | | | PATHOLOGY | [address] | | | + + + + + | [facility] DEPARTMENT OF | [address] | [place] [address] | | | PATHOLOGY | [address] [...] COUNSELING CENTER | [address] | [place] [address] | | | PATHOLOGY | [address] | | | + + + + + | [facility] | [address] | [place] [address] | | | PATHOLOGY | [address] | | | + + + + + documented in this encounter Visit Diagnoses Not on filedocumented in this encounter"
--- OUTSIDE RECORDS SUMMARY | ~2019-11-17 | XMS | Encounter Summary ---
Demographics + + + | Address | [address] | | | [place] [address] | + + + | Home Phone [...] Team Providers + +------+ + | Care Continuity Person Name | Role | Phone | [...] [address] | | | | | [facility] | [place], [place] | | | | | [address] | [address] | | | | | [address] | [phone] | | | | | Physician's Pavilion | | | | | | Physician's | | | | | | Pavilion [place], | | | | | | [place] [address] | | | | | | [phone] | | | +--------+--------+ + + + [...]
--- OUTSIDE RECORDS SUMMARY | ~2019-11-17 | XMS | Encounter Summary ---
Demographics + + + | Address | [address] | | | [place] [address] | + + + | Home Phone [...] Providers + +------+ + | Care Heel Breaster Name | Role | Phone | + [...] 2016 | | NEUROLOGY [place] | [address] | | | | | [address] [facility], | [address] [address] | | | | | [address] [place] | [place] | | | | | [place] [address] | [address] | | | | | [phone] | | | +--------+ + + + [...] | | | | | | [place] [address] | | | | | | [phone] | | | | | | | | +--------+---------+ + + + | 12/20/ | Office | Otolaryngology | Ulysses Genao MD | | | 2019 | Visit | | [address] | | | | | | [address] [place], | | | | | | [place] [address] | | | | | | [phone] | | | | | | | | +--------+---------+ + + + | 02/15/ | Office | Internal Medicine | Alanis, | | | 2019 | Visit | | MD Petrona | | | | | | [address] [place] | | | | | | [place] [address] | | | | | | [phone] | | | | | | | | +--------+---------+ + + + documented as of this encounter Visit Diagnoses Not on filedocumented in this encounter"
--- OUTSIDE RECORDS SUMMARY | ~2019-11-17 | XMS | Encounter Summary ---
Demographics + + + | Address | [address] | | | [place] [address] | + + + | Home Phone [...] Providers + +------+ + | Care Conservation Engineer Name | Role | Phone | [...] + + | 03/02/ | Telephone | [facility] | Alanis, | Paperwork | | 2017 | | MEDICINE [address] [place] [address] | MD Petrona | | | | | [facility] | [address] [place] [address] | | | | | [place] [address] | [place] [address] | | | | | [phone] | [phone] | | | | | | | [...] | | | | | [place] [address] | | | | | | [phone] | | | | | | | | +--------+---------+ + + + | 12/20/ | Office | Otolaryngology | Ulysses Genao MD | | | 2020 | Visit | | [address] | | | | | | [address] [place], | | | | | | [place] [address] | | | | | | [phone] | | | | | | | | +--------+---------+ + + + | 02/15/ | Office | Internal Medicine | Alanis, | | | 2019 | Visit | | MD Petrona | | | | | | [address] | | | | | | [place] [address] | | | | | | [phone] | | | | | | | | +--------+---------+ + + + documented as of this encounter Visit Diagnoses Not on filedocumented in this encounter"
--- OUTSIDE RECORDS SUMMARY | ~2019-11-17 | XMS | Encounter Summary ---
Demographics + + + | Address | [address] | | | [place] [address] | + + + | Home Phone [...] Providers + +------+ + | Care Social Insurance Analyst Name | Role | Phone | [...] Pavilion | | | | | | [place], [place] | | | | | | [address] | | | | | | [phone] | | | +--------+ + + + [...]
--- OUTSIDE RECORDS SUMMARY | ~2019-11-17 | XMS | Encounter Summary ---
Demographics + + + | Address | [address] | | | [place] [address] | + + + | Home Phone [...] + +------+ + | Care Hot Metal Crane Operator Name | Role | Phone [...] | | | Metabolism | bypass | [address] | [address] | | | | | Hypovitamino | [address], | Ave | | | | | sis D [address] | [address] | [place], [place] | | | | | nutritional | [place] | [address] | | | | | deficiency | [address] | Phone: | | | | | Other | Phone: | [phone] | | | | | protein-jose manuel | [phone] | Fax: | | | | | nick | Fax: | [phone] | | | | | malnutrition | [phone] | | | | | | Weight | | | | | | | gain | | | | | | | Procedures | | | | | | | CONSULT TO | | | | | | | ENDO | | | | | | | [address] | | | | | | | [address] | | | +--------+--------+ + + + [...] | | | [facility] | [place], [place] | Metabolic syndrome X | | | | [address] | [address] | 250.80; Essential | | | | [address] | [phone] | hypertension 401.9; | | | | Physician's Pavilion | | IGT (impaired | | | | Physician's | | glucose tolerance) | | | | Pavilion [place], | | | | | | [place] [address] | | | | | | [phone] | | | +--------+---------+ + + + [...] month in the pain center her at [facility], so she is hoping to find [...] Hives Mainly in the legs Clindamycin Codeine Phddrco-Lfmepxdhoa-Xvd-Caff Balance problems Fioricet W/Codeine (Lzbbgyvgfp-Jybjxjhlkl-Eah-Cod) Keflex (Cephalexin) Morphine IM ( only in [facility]) made gut pain worse 08/27/06: [...] U/L 41 ANION GAP 8 VITAMIN B12, [id number] pg/ml >2000 (H) HEMOGLOBIN A1C <=5.6 % [...] SERUM 15.0-85.0 pg/ml 222.9 (H) VITAMIN B12, [id number] pg/ml > 2000 HEMOGLOBIN A1C <=5.6 % [...]
--- OUTSIDE RECORDS SUMMARY | ~2019-11-17 | XMS | Encounter Summary ---
Demographics + + + | Address | [address] | | | [place] [address] [...] Providers + +------+ + | Care Core Microarchitect Name | Role | Phone | + [...] 2016 | | NEUROLOGY [place] | [address] | | | | | [address] [facility], | [address] | | | | | [address] [place] | [place] | | | | | [place] [address] | [address] | | | | | [phone] | | | +--------+ + + + [...] | | | | | | [place] [address] | | | | | | [phone] | | | | | | | | +--------+---------+ + + + | 12/20/ | Office | Otolaryngology | Ulysses Genao MD | | | 2019 | Visit | | [address] | | | | | | [address] [place], | | | | | | [place] [address] | | | | | | [phone] | | | | | | | | +--------+---------+ + + + | 02/15/ | Office | Internal Medicine | Alanis, | | | 2019 | Visit | | MD Petrona | | | | | | [address] [place] | | | | | | [place] [address] | | | | | | [phone] | | | | | | | | +--------+---------+ + + + documented as of this encounter Visit Diagnoses Not on filedocumented in this encounter"
--- OUTSIDE RECORDS SUMMARY | ~2019-11-17 | XMS | Encounter Summary ---
Demographics + + + | Address | [address] | | | [place] [address] | + + + | Home Phone [...] Team Providers + +------+ + | Care Slurry Mixer Name | Role | Phone | [...] | | | [address] | [place] [address] | | | | | [address] | | | | | | [place], 2nd floor | | | | | | [place], [place] | | | | | | [address] | | | | | | [phone] | | | +--------+ + + + [...]
--- OUTSIDE RECORDS SUMMARY | ~2019-11-17 | XMS | Encounter Summary ---
Demographics + + + | Address | [address] | | | [place] [address] | + + + | Home Phone [...] Team Providers + +------+ + | Care Hardener Helper Name | Role | Phone | [...] + + | 05/18/ | Telephone | [facility] | Alanis, | Referral | | 2018 | | MEDICINE [address] [place] [address] | MD Petrona | | | | | [facility] | [address] [place] [address] | | | | | [place] [address] | [place] [address] | | | | | [phone] | [phone] | | | | | | | [...] | | | | | [place] [address] | | | | | | [phone] | | | | | | | | +--------+---------+ + + + | 12/20/ | Office | Otolaryngology | Ulysses Genao MD | | | 2019 | Visit | | [address] | | | | | | [address] [place], | | | | | | [place] [address] | | | | | | [phone] | | | | | | | | +--------+---------+ + + + | 02/15/ | Office | Internal Medicine | Alanis, | | | 2019 | Visit | | MD Petrona | | | | | | [address] | | | | | | [place] [address] | | | | | | [phone] | | | | | | | | +--------+---------+ + + + documented as of this encounter Visit Diagnoses Not on filedocumented in this encounter"
--- OUTSIDE RECORDS SUMMARY | ~2019-11-17 | XMS | Encounter Summary ---
[...] Providers + +------+ + | Care Steam Hoist Operator Name | Role | Phone | [...] | 2006 | TRANSCRIPTI | [facility] [place] | [address] [facility] | QUESTIONNAIRE | | | [place] | for Health and | [facility], [place] | | | | | Healing [address] | [address] | | | | | Bethanie Mailcode: | [phone] | | | | | [facility] | | | | | | [facility] and Healing, | | | | | | [facility] | | | | | | [place], [place] | | | | | | [address] | | | | | | [phone] | | | +--------+ + + + [...]
--- OUTSIDE RECORDS SUMMARY | ~2019-11-17 | XMS | Encounter Summary ---
Demographics + + + | Address | [address] | | | [place] [address] | + + + | Home Phone [...] Providers + +------+ + | Care White Lead Filterer Name | Role | Phone | + +------+ + PCP | Unavailable | + +------+ + Encounter Details +--------+ + + + + | Date | Type | Department | Care Team | Description | +--------+ + + + + | 01/02/ | Telephone | [facility] | Kenisha Melton, | | | 2005 | | [place] [address] | [facility] [address] | | | | | [address] | [address] | | | | | Mailcode: [id number] | [place], [place] | | | | | [facility] | [address] | | | | | [place], [place] | [phone] | | | | | [address] | | | | | | [phone] | | | +--------+ + + + [...]
--- OUTSIDE RECORDS SUMMARY | ~2019-11-17 | XMS | Encounter Summary ---
Demographics + + + | Address | [address] | | | [place] [address] | + + + | Home Phone [...] +------+ + | Care Registered Nurse Cardiac Telemetry Name | Role | Phone | + [...] | | sciatica | [address] | [place] [address] | | | | | Generalized | [place], | Phone: | | | | | osteoarthrit | [place] | [phone] | | | | | is | [address] | Fax: | | | | | | Phone: | [phone] | | | | | | [phone] | | | | | | | Fax: | | | | | | | [phone] | | +--------+ + + + + + Reason for Visit + + + | Reason | Comments | + + + | Medication Problem | | + + + Encounter Details +--------+--------+ + + + | Date | Type | Department | Care Team | Description | +--------+--------+ + + + | 06/05/ | Refill | [facility] | Alanis, | Medication Problem | | 2016 | | MEDICINE [address] [place] [address] | MD [place] | | | | | [facility] | [address] [place] [address] | | | | | [place] [address] | [place] [address] | | | | | [phone] | [phone] | | | | | | | [...] | | | | | [place] [address] | | | | | | [phone] | | | | | | | | +--------+---------+ + + + | 12/20/ | Office | Otolaryngology | Ulysses Genao MD | | | 2019 | Visit | | [address] | | | | | | [address] [place], | | | | | | [place] [address] | | | | | | [phone] | | | | | | | | +--------+---------+ + + + | 02/15/ | Office | Internal Medicine | EmmyAlberto, | | | 2019 | Visit | | MD [place] | | | | | | [address] [place] | | | | | | [place] [address] | | | | | | [phone] | | | | | | | [...]
--- OUTSIDE RECORDS SUMMARY | ~2019-11-17 | XMS | Encounter Summary ---
Demographics + + + | Address | [address] | | | [place] [address] | + + + | Home Phone [...] Providers + +------+ + | Care Technical Buyer Name | Role | Phone | [...] | Pain | Diagnoses | Miracle, | Noble, | | | | Management | LBP (low | NIHARIKA Jean | Lukasz Rhodes, PhD | | | | | back pain) | [address] | [address] | | | | | DJD | [address] | Ave | | | | | (degenerativ | [place], [place] | [place] | | | | | e joint | [address] | [address] | | | | | disease) of | | Phone: | | | | | knee Knee | | [phone] | | | | | pain Major | | Fax: | | | | | depressive | | [phone] | | | | | disorder, | [...] 03/03/ | Office | [facility] | Lukasz Charles, | Major Depressive | | 2007 | Visit | [address] | PhD [address] | Disorder, Recurrent | | | | Mailcode: [facility] | [place], [place] | Episode, Moderate | | | | [facility] | [address] | [facility] LBP (Low Back | | | | and Healing, | [phone] | Pain); Bilateral | | | | | | Knee Pain; | | | | Floor [place], [place] | | Fibromyalgia | | | | [address] | | syndrome 729.1; | | | | [phone] | | Adjustment Disorder | | | [...] seems to be doing good self-care. Diagnosis: Goodview I: 1. (296.32) Major depressive disorder, recurrent, moderate. 2. (309.24) Adjustment disorder with anxiety. 3. 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 Goodview II: Deferred Goodview III: abdominal pain, migraine headache, low back pain. Goodview IV: low finances Goodview V: GAF 55-60 Plan: return with next medical follow-up appointment. Check mood, pain, relaxation, activ ity, distraction, eating. Continue cognitive/behavioral therapy. Total time spent with patient was approximately 45 minutes. LUKASZ CHARLES PHD [facility] [address] [facility], 4th [place] [address] documented in this encount er Plan of Treatment + + +--------+ + + | Name | Type | Priori | Associated Diagnoses | Order Schedule | | | | ty | | | + + +--------+ + + | NE PSYCHOTHERPY, | Procedures | Routin | Major Depressive | Ordered: 03/03/2008 | | OFFICE (92-51) | | e | Disorder, Recurrent | [...]
--- OUTSIDE RECORDS SUMMARY | ~2019-11-17 | XMS | Encounter Summary ---
Demographics + + + | Address | [address] | | | [place] [address] | + + + | Home Phone [...] Providers + +------+ + | Care Machine Stonecutter Name | Role | Phone | + [...] results of | | | | [facility] | | several radiology | | | | [address] | | studies) | | | | Mailcode: CH15P | | | | | | [facility] | | | | | | and Healing, | | | | | | Building | | | | | | Floor [place], [place] | | | | | | [address] | | | | | | [phone] | | | +--------+ + + + [...] | + +--------+ + + + | HI MRI LOWER EXTREM | Routin | 08/22/2005 [...] | + +--------+ + + + | HI MRI LOWER EXTREM | Routin | 03/05/2005 [...] + | NAME: BELINDA MEEHAN MR #: [id number] | [facility] | | DATE OF EXAM: [...] Armaan Rivera | | | H : [id number] : 1442 Approved By: Radiologist: | | + + + + + + + + | Performing | Address | City/State/Zipcode | Phone Number | | Organization | | | | + + + + + | [facility] | [address] | [place], [place] | | | [facility] POINT OF CARE | [address] | [address] | | | TESTS | | | | + + + + + | [facility] | [address] | [place], [place] | | | TESTS | [address] | [address] | | + + + + + [...] GEOVANNYQUAM | [address] | [place], [place] | | | CLOTHIER POINT OF CARE | [facility] | [address] | | | TESTS | | | | + + + + + | [facility] | [address] | [place], [place] | | | TESTS | [facility] | [address] | | + + + + + [...] By: Armaan Mata : | | | [id number] : 1137 Approved By: | | + + + + + + + + | Performing | Address | City/State/Zipcode | Phone Number | | Organization | | | | + + + + + | [facility] | [address] | [place], [place] | | | [place] POINT OF CARE | [address] | [address] | | | TESTS | | | | + + + + + | [facility] | [address] [facility] [address] | [place], [place] | | | TESTS | [address] | [address] | | + + + + + MRI SPINE CERVICAL WO CONTRAST (10/01/2005) + + + | Impressions | Performed At | + + + | SPINE LUMBAR 2 VIEWS AT 1421 HOURS LUMBAR SPINE, 10/01/05 | [facility] | | HISTORY: Back pain. FINDINGS: AP and lateral views of the lumbar | CARE TESTS | | spine show five ccz-muj-kbmcojk lumbar vertebrae in normal alignment | | [...] | SPONDYLOSIS. Transcribed By: Armaan Mata : [id number] : | | | 1402 Approved By: | | + + + + + + + + | Performing | Address | City/[facility] | Phone Number | | Organization | | | | + + + + + | [facility] | [address] | [place], [place] | | | CLOTHIER POINT OF CARE | [address] | [address] | | | TESTS | | | | + + + + + | [facility] | [address] | [place], [place] | | | TESTS | [address] | [address] | | + + + + + [...] | | Transcribed By: Adriana Pacheco : [id number] : 1215 Approved By: | | | | | + + + + + + + + | Performing | Address | City/State/Zipcode | Phone Number | | Organization | | | | + + + + + | [facility] | [address] | [place], [place] | | | [facility] | [address] | [address] | | | TESTS | | | | + + + + + | [facility] | [address] | [place], [place] | | | TESTS | [address] | [address] | | + + + + + HI MRI LOWER EXTREM JT, W/O CONTRAST (08/22/2005) + + + | Impressions | Performed At | + + + | LOWER EXTREMITY JOINT RT W/O AT 1619 HOURS RIGHT KNEE MRI, | [facility] | | 08/22/05 HISTORY: Chronic [...] + + | Performing | Address | City/[facility] | Phone Number | | Organization | | | | + + + + + | [facility] | [address] | [place], [place] | | | CLOTHIER POINT OF CARE | [address] | [address] | | | TESTS | | | | + + + + + | [facility] | [address] | [place], [place] | | | TESTS | [address] | [address] | | + + + + + [...] VERONICA | [address] | [place], [place] | | | [place] POINT OF CARE | [address] | [address] | | | TESTS | | | | + + + + + | [facility] | [address] | [place], [place] | | | TESTS | [address] | [address] | | + + + + + HI MRI LOWER EXTREM JT, W/O CONTRAST (03/05/2005) [...] | | | By: Armaan Mata : [id number] : 1416 Approved By: | | + + + + + + + + | Performing | Address | City/State/Zipcode | Phone Number | | Organization | | | | + + + + + | [facility] | [address] | [place], [place] | | | [facility] | [address] | [address] | | | TESTS | | | [...] Armaan | | | Nicole Saenz : [id number] : 1555 Approved By: | | + + + + + + + + | Performing | Address | City/State/Zipcode | Phone Number | | Organization | | | | + + + + + | [facility] | [address] | [place], [place] | | | [facility] | [address] | [address] | | | TESTS | | | [...] Adriana | | | Aminata Pacheco : [id number] : 1505 Approved By: | | + + + + + + + + | Performing | Address | City/State/Zipcode | Phone Number | | Organization | | | | + + + + + | [facility] | [address] [facility] [address] | [place], [place] | | | [facility] [facility] | [address] | [address] | | | TESTS | | | | + + + + + documented in this encounter Visit Diagnoses Not on filedocumented in this encounter"
--- OUTSIDE RECORDS SUMMARY | ~2019-11-17 | XMS | Encounter Summary ---
Demographics + + + | Address | [address] | | | [place] [address] | + + + | Home Phone [...] Providers + +------+ + | Care Basket Operator Name | Role | Phone | [...] | | right | [address] | [address] Phone: | | | | | supraspinatu | [place], | [phone] | | | | | s tendon, | [place] | Fax: | | | | | initial | [address] | [phone] | | | | | encounter | Phone: | | | | | | | [phone] | | | | | | | Fax: | | | | | | | [phone] | | +--------+ + + + + [...] Acute pain | Emmy-Tajt | [address] | | | | | of right | i, | [place], | | | | | shoulder | [place] | [place] | | | | | Procedures | , MD [address] | [address] | | | | | MRI Shoulder | [address] | Phone: | | | | | Right wo | [place], | [phone] | | | | | Contrast | [place] | Fax: | | | | | | [address] | [phone] | | | | | | Phone: | | | | | | | [phone] | | | | | | | Fax: | | | | | | | [phone] | | +--------+--------+ + + + + [...] + + | 01/15/ | Office | [facility] | Alanis, | Acute pain of right | | 2017 | Visit | MEDICINE [address] [place] [address] | MD [place]rona | shoulder (Primary | | | | [facility] | [address] [place] [address] | Dx); Chronic | | | | [place] [address] | [place] [address] | diarrhea; Fatty | | | | [phone] | [phone] | liver; S/P bariatric | | | [...] (See Comments) Confused and questionable for seizures Nhdxaqpxdv-Eouw-Hwmvixix Hives and Rash Cephalexin Hives Ciprofloxacin Hives [...] Note: Parts of this documentwere created using [employer] speech recognition software. As a r esult, [...] [place]ICK | | | | | | [facility] [address] [facility] | | | | | | [place] [address] | | | | | | [phone] | | | | | | | | +--------+---------+ + + + | 12/20/ | Office | Otolaryngology | Ulysses Genao MD | | | 2019 | Visit | | [address] | | | | | | [address] [place] | | | | | | [place] [address] | | | | | | [phone] | | | | | | | | +--------+---------+ + + + | 02/15/ | Office | Internal Medicine | EmmyAnjum, | | | 2019 | Visit | | MD [place] | | | | | | [address] | | | | | | [place] [address] | | | | | | [phone] | | | | | | | [...]
--- OUTSIDE RECORDS SUMMARY | ~2019-11-17 | XMS | Encounter Summary ---
Demographics + + + | Address | [address] | | | [place] [address] | + + + | Home Phone [...] [address] | | | | | [facility] | [place], [place] | | | | | and Healing, | [address] | | | | | [facility], [facility] | [phone] | | | | | Floor [place], [place] | | | | | | [address] | | | | | | [phone] | | | +--------+ + + + [...]
--- OUTSIDE RECORDS SUMMARY | ~2019-11-17 | XMS | Encounter Summary ---
Demographics + + + | Address | [address] | | | [place] [address] | + + + | Home Phone [...] Providers + +------+ + | Care Drafter Seismograph Name | Role | Phone | + [...] + + | 04/08/ | Telephone | [facility] | Rosi Antonio, | | | 2012 | | Pain Center at | ANP | | | | | [facility] | | | | | | [address] | | | | | | Mailcode: CH15P | | | | | | [facility] | | | | | | and Healing, | | | | | | | | | | | | Floor [place], [place] | | | | | | [address] | | | | | | [phone] | | | +--------+ + + + [...]
--- OUTSIDE RECORDS SUMMARY | ~2019-11-17 | XMS | Encounter Summary ---
Demographics + + + | Address | [address] | | | [place] [address] | + + + | Home Phone [...] Providers + +------+ + | Care Call Center Rn Name | Role | Phone | [...] | | | [facility] | [place], [place] | | | | | [address] | [address] | | | | | [address] | [phone] | | | | | [facility] | | | | | | Physician's | | | | | | Pavilion [place], | | | | | | [place] [address] | | | | | | [phone] | | | +--------+ + + + [...]
--- OUTSIDE RECORDS SUMMARY | ~2019-11-17 | XMS | Encounter Summary ---
Demographics + + + | Address | [address] | | | [place] [address] | + + + | Home Phone [...] Providers + +------+ + | Care Coil Connector Repairer Name | Role | Phone | [...] + | 02/17/ | Refill | [facility] | Alanis, | Medication Refill | | 2018 | | MEDICINE [address] [place] [address] | MD [place] | | | | | [facility] | [address] [place] [address] | | | | | [place] [address] | [place] [address] | | | | | [phone] | [phone] | | | | | | | [...] | | | | | [place] [address] | | | | | | [phone] | | | | | | | | +--------+---------+ + + + | 12/20/ | Office | Otolaryngology | Ulysses Genao MD | | | 2019 | Visit | | [address] | | | | | | [address] [place], | | | | | | [place] [address] | | | | | | [phone] | | | | | | | | +--------+---------+ + + + | 02/15/ | Office | Internal Medicine | EmmyCarmen, | | | 2019 | Visit | | MD [place] | | | | | | [address] | | | | | | [place] [address] | | | | | | [phone] | | | | | | | | +--------+---------+ + + + documented as of this encounter Visit Diagnoses + + | Diagnosis | + + | Chest pain, unspecified type | + + documented in this encounter"
--- OUTSIDE RECORDS SUMMARY | ~2019-11-17 | XMS | Encounter Summary ---
Demographics + + + | Address | [address] | | | [place] [address] | + + + | Home Phone [...] Providers + +------+ + | Care Hat And Cap Sewer Name | Role | Phone | [...] as of this encounter Progress Notes Interface, Maintenance Data Analyst In - 08/30/2005 2:07 AM PST [id number] [facility] Date: 07/24/2005 Clinic: Surgery [...] for surgery. Chris Padgett M.D. ROSA / [id number] / [id number] / [id number] / [id number] Electronically signed by Chris Padgett 08-29-2005 03:28:14 PM documented i n this encounter Plan of Treatment Not on filedocumented as of this encounter Visit Diagnoses Not on filedocumented in this encounter"
--- OUTSIDE RECORDS SUMMARY | ~2019-11-17 | XMS | Encounter Summary ---
Demographics + + + | Address | [address] | | | [place] [address] | + + + | Home Phone [...] Providers + +------+ + | Care Machine Clothing Replacer Name | Role | Phone | + [...] | | | Stay [address] | [place], [place] | Examination; HTN | | | | [address] | [address] | (Hypertension); | | | | Mailcode: UHN65 | [phone] | Chronic Pain | | | | [facility] | | | | | | [address] [facility] [place] | | | | | | [address] | | | | | | [phone] | | | +--------+---------+ + + + [...] restrictions or a bowel preparation. Your [facility] gical team will give you additional printed [...] PM please call your surgeons' office for [id number]. PARKING Parking for patients and visitors is available in the [facility] Parking structure located across from the emergency [...] ADVICE FOR DAY OF SURGERY: Remove nail pitcairn islander from at least one fingernail (if applicable) [...] surgeries scheduled to take place on the lindley at the [facility]: Surgeries scheduled in the [facility] ([address] [place] [address]): registration is located on the 4th floor of [facility] (Day Surgery). Surgeries scheduled in the [facility]: registration is located on the 9th floor . For surgeries scheduled to take place at the [facility]: registration i s located on the 4th floor (Surgery Center). AVOID THESE MEDICATIONS FOR 7 DAYS BEFORE SURGERY PRODUCTS CONTAINING ASPIRIN Jacquelyn-Salinas, Anacin, Anexsia with Codeine, Len nos, Aspirin, Aspirin suppositories, Ascri ptin, Aspergum, Axotal, B-A-C, Baby Aspirin, Lucila, BC Powder, Bexophene, Buffaprin, Bufferi n, Buffinol, Cama-Arthritis Strength, Congespirin, [place], Coricidin, Damason, Darvon, Dristan , Anastasia-Gesic, Digel, Dolprin #3 Tablets, Donatab, Doxaphene, Duragesic, Easprin, Ecotrin, Dipika grin Forte, Emiprin, Emprazil, Equagesic, Equazine M, Excedrin, Fiogesic, Fiorgen PH, Fioric et, Fiorinal, 4-Way Cold Tablet Gemnisyn, Indocin, Liquprin, Lortab ASA, Magnaprin, Marnal, Meprobamate, Midol, Momentum, N orgesic, [place], Orphengesic, Pabalate, P-A-C, Percodan, Presalin, Robaxasil, Roxiprin, Bunny eto, Salocol SK-65 Compound, Sine-Aid, Sine-Off,, [place], Supac, Talwin Compound, Trigesic, Tolectin , Traiminicin, Vanquish, ZORprin, Zomax PRODUCTS CONTAINING IBUPROFEN Advil, Aleve, Haltran, Medipren, Midol, Motrin, Naproxyn, Nuprin, Rufen OTHER PRODUCTS WHICH MAY PROMOTE BLEEDING Vitamin E, Gingko Biloba, Marine Fatty Acids, [place]-3 Fish Oil Supplements documented in this encounter [...] + + | [facility] DEPARTMENT | [address] [facility] | [place] [address] | | | PATHOLOGY | [address] | | | + + + + + | [facility] DEPARTMENT OF | [address] [facility] | [place] [address] | | | PATHOLOGY | [address] [...] | [facility] DEPARTMENT OF | [address] | [place] [address] | | | PATHOLOGY | [address] | | | + + + + + | [facility] | [address] | [place] [address] | | | PATHOLOGY | [address] [...] | | | DEPARTMENT | | | [place] | | | OF | | | [...] [facility] | [address] | [place] [address] | | | PATHOLOGY | [address] | | | + + + + + | [facility] | [address] | [place] [address] | | | PATHOLOGY | [address] [...] | [facility] DEPARTMENT OF | [address] | [place] [address] | | | PATHOLOGY | [address] | | | + + + + + | [place] DEPARTMENT OF | [address] | [place] [address] | | | PATHOLOGY | [address] [...] view image for the detailed interpretation from [employer] results. | CARDIOLOGY | | | | + + + + + + + + | Performing | Address | City/State/Zipcode | Phone Number | | Organization | | | | + + + + + | [facility] DEPT OF | [address] | [place], [place] | | | CARDIOLOGY | [address] | [address] | | + + + + + | [facility] OF | [address] | [place], [place] | | | CARDIOLOGY | [address] | [address] | | + + + + + [...]
--- OUTSIDE RECORDS SUMMARY | ~2019-11-17 | XMS | Encounter Summary ---
Demographics + + + | Address | [address] | | | [place] [address] | + + + | Home Phone [...] Team Providers + +------+ + | Care A Class Lineman Name | Role | Phone | [...] [id number] | | | | | | [place], [place] | | | | | | [address] | | | | | | [phone] | | | +--------+ + + + [...]
--- OUTSIDE RECORDS SUMMARY | ~2019-11-17 | XMS | Encounter Summary ---
Demographics + + + | Address | [address] | | | [place] [address] | + + + | Home Phone [...] Team Providers + +------+ + | Care Services Tech Name | Role | Phone [...] - Disregard | | | | [facility] | | | | | | [address] | | | | | | Mailcode: CH15P | | | | | | [facility] | | | | | | and [place], | | | | | | [facility] | | | | | | [place], [place] | | | | | | [address] | | | | | | [phone] | | | +--------+ + + + [...]
--- OUTSIDE RECORDS SUMMARY | ~2019-11-17 | XMS | Encounter Summary ---
Demographics + + + | Address | [address] | | | [place] [address] | + + + | Home Phone [...] Providers + +------+ + | Care Job Lithographer Name | Role | Phone | + [...] + | 01/12/ | Refill | [facility] | Alanis, | Medication Refill | | 2017 | | MEDICINE [address] [place] [address] | MD [place] | | | | | [facility] | [address] [place] [address] | | | | | [place] [address] | [place] [address] | | | | | [phone] | [phone] | | | | | | | [...] | | | | | [place] [address] | | | | | | [phone] | | | | | | | | +--------+---------+ + + + | 12/20/ | Office | Otolaryngology | Ulysses Genao MD | | | 2019 | Visit | | [address] | | | | | | [address] [place], | | | | | | [place] [address] | | | | | | [phone] | | | | | | | | +--------+---------+ + + + | 02/15/ | Office | Internal Medicine | Alanis, | | | 2019 | Visit | | MD [place] | | | | | | [address] [place] [address] [place] | | | | | | [place] [address] | | | | | | [phone] | | | | | | | | +--------+---------+ + + + documented as of this encounter Visit Diagnoses Not on filedocumented in this encounter"
--- OUTSIDE RECORDS SUMMARY | ~2019-11-17 | XMS | Encounter Summary ---
Demographics + + + | Address | [address] | | | [place] [address] | + + + | Home Phone [...] Team Providers + +------+ + | Care New Car Get Ready Mechanic Name | Role | Phone | [...] as of this encounter Progress Notes Interface, Security Advisor In - 01/12/2005 6:[address] [facility] Date: 11/27/2003 Clinic: Surgery Clinic Subjective: This patient of Dr. Chris Padgett walks into clinic today to discuss her laparoscopic incisions and a lesion on her lower back. She was discharged from [facility] approximately 36 hours ago following a [...] discharge and would like to proceed to [place], where her home is. She agrees to [...] additional questions. Liliya Kirkpatrick. NELLY / SHARIF [id number] / [id number] / [id number] / [id number] Tdocumented in this encounter Plan of Treatment Not on filedocumented as of this encounter Visit Diagnoses Not on filedocumented in this encounter"
--- OUTSIDE RECORDS SUMMARY | ~2019-11-17 | XMS | Encounter Summary ---
Demographics + + + | Address | [address] | | | [place] [address] | + + + | Home Phone [...] as of this encounter Progress Notes Interface, Tab Card Press Operator In - 04/07/2006 2:32 AM PDT [id number] GEOVANNI SKELTON Molly [id number] Clinic Date: 04/01/2006 Clinic: Rheumatology Belinda Meehan is here for a couple of trigger point injections. She comes from [place]. Tomorrow, she is due for an EGD [...] 4 months. Caitlin Rivera M.S., F.N.P. / [id number] / [id number] / [id number] / [id number] Electronically signed by Caitlin Rivera 04-06-2006 03:23:35 PM documented i n this encounter Plan of Treatment Not on filedocumented as of this encounter Visit Diagnoses Not on filedocumented in this encounter"
--- OUTSIDE RECORDS SUMMARY | ~2019-11-17 | XMS | Encounter Summary ---
Demographics + + + | Address | [address] | | | [place] [address] | + + + | Home Phone [...] Team Providers + +------+ + | Care Picking Belt Operator Name | Role | Phone | + +------+ + | Sulaiman Carrera MD | PCP | | + +------+ + Encounter Details +--------+ + + + + | Date | Type | Department | Care Team | Description | +--------+ + + + + | 02/08/ | Telephone | [facility] | Chris Padgett, | | | 2008 | | [place] [address] | [address] [facility] | | | | | Bethanie Mailcode: CH4S | [address] | | | | | [facility] | [place], [place] | | | | | and Healing, | [address] | | | | | [place] [address], 6th | [phone] | | | | | Floor [place], [place] | | | | | | [address] | | | | | | [phone] | | | +--------+ + + + [...]
--- OUTSIDE RECORDS SUMMARY | ~2019-11-17 | XMS | Encounter Summary ---
Demographics + + + | Address | [address] | | | [place] [address] | + + + | Home Phone [...] Providers + +------+ + | Care Corn Cutter Operator Name | Role | Phone [...] | 2006 | Visit | [facility] at [facility] | [address] [facility] | Myelopathy, Lumbar | | | | [place] [address] [place], | Region; Neck Pain; | | | | [place] Mailcode: | [place] [address] | Herniated Lumbar | | | | [facility] | | Intervertebral Disc | | | | Health and Healing, | | L4-5; Fibromyalgia | | | | Building | | syndrome 729.1; NO | | | | Floor [place], [place] | | DIAGNOSIS RECEIVED | | | | [address] | | | | | | [phone] | | | +--------+---------+ + + + [...] Date: December 02, 2006 Patient: Belinda Meehan, [id number], 1960 I agree with the proposed Physical Therapy Treatment Plan. Provider: DELFINA BUNDY elfina Molina - 007 11:31 AM PDTThis encounter was opened in error. Please disregard this note. athalia Arora - 007 12:26 PM PDT PROGRESS NOTE: Physical Therapy Medicare Progress Note Date: 10/07/2006 Belinda Meehan [id number]. 1960 Start of Care: 06/23/2006 Referring Provider: [...] dial meniscal tear. Patient continues walking at [employer] on a daily basis, (when she is no t in [place] for appts), 30-40 minutes, and her HEP [...] ended: 115 Nathalia Arora, Physical Therapist License #[id number] documented in this encoun ter Plan of Treatment + + +--------+ + + | Name | Type | Priori | Associated Diagnoses | Order Schedule | | | | ty | | | + + +--------+ + + | RI THERAPEUTIC | Procedures | Routin | Spondylosis [...]
--- OUTSIDE RECORDS SUMMARY | ~2019-11-17 | XMS | Encounter Summary ---
Demographics + + + | Address | [address] | | | [place] [address] | + + + | Home Phone [...] Team Providers + +------+ + | Care Harness Rigger Name | Role | Phone | [...] + + | 03/21/ | Office | [facility] | Emmy-Kamlesh, | Migraine without | | 2019 | Visit | MEDICINE [address] [place] [address] | MD Petrona | aura and without | | | | [facility] | [address] [place] [address] | status migrainosus, | | | | [place] [address] | [place] [address] | not intractable | | | | [phone] | [phone] | (Primary Dx); | | | | [...] She is working with an orthopedist in [facility], and she anticipates that she will [...] COLONOSCOPY; Surgeon: Luther Brito MD; Location: [facility] MEDICAL PROCEDURE UNIT DILATION AND CURETTAGE OF UTERUS ELBOW SURGERY FINGER TRIGGER RELEASE 2002 FINGER TRIGGER RELEASE 2009 GASTRIC BYPASS SURGERY 2004 HYSTERECTOMY 05/14/1980 JOINT REPLACEMENT Bilateral 2007 2008 KNEE ARTHROSCOPY 2005 LAPAROSCOPY 01/27/2015 LAPAROTOMY 2008 ROTATOR CUFF REPAIR 2005 SPINE SURGERY TONSILLECTOMY 1964 UPPER GASTROINTESTINAL ENDOSCOPY N/A 12/18/2017 Procedure: EGD; Surgeon: Luther Brito MD; Location: [facility] MEDICAL PROCEDURE UNIT CURRENT MEDICATIONS Current [...] Allergen Reactions Ensure Diarrhea Food Diarrhea Lactose Sqvoneqpru-Aqk-Hyez-Codeine Other (See Comments) Balance problems Codeine Sulfate Nausea Only Food Allergy Formula Diarrhea Ensure Levofloxacin Hives, Itching and Rash Butalbital Ropinirole Amitriptyline Hcl Other (See Comments) Confused and questionable for seizures Vvuaxncbou-Lwpg-Wikgbokt Rash duplicate Pzrudpuktm-Eazv-Dphfhaas Hives and Rash Cephalexin Hives Ciprofloxacin Hives [...] 1. Parts of this documentwere created using LumiFold speech recognition software. As a resu lt, [...] [place] | | | | | | [facility] | | | | | | [place] [address] | | | | | | [phone] | | | | | | | | +--------+---------+ + + + | 12/20/ | Office | Otolaryngology | Ulysses Genao MD | | | 2019 | Visit | | [address] [place] | | | | | | [address] [place], | | | | | | [place] [address] | | | | | | [phone] | | | | | | | | +--------+---------+ + + + | 02/15/ | Office | Internal Medicine | Alanis, | | | 2019 | Visit | | MD Petrona | | | | | | [address] [place] | | | | | | [place] [address] | | | | | | [phone] | | | | | | | [...]
--- OUTSIDE RECORDS SUMMARY | ~2019-11-17 | XMS | Encounter Summary ---
Demographics + + + | Address | [address] | | | [place] [address] | + + + | Home Phone [...] Team Providers + +------+ + | Care Acting Manager Name | Role | Phone | [...] + + | 05/03/ | Telephone | [facility] | Alanis, | Medication Prior | | 2017 | | MEDICINE [address] [place] [address] | MD Petrona | Authorization | | | | [facility] | [address] [place] [address] | (Sumatriptan) | | | | [place] [address] | [place] [address] | | | | | [phone] | [phone] | | | | | | | [...] | | | | | [place] [address] | | | | | | [phone] | | | | | | | | +--------+---------+ + + + | 12/20/ | Office | Otolaryngology | Ulysses Genao MD | | | 2019 | Visit | | [address] [place] | | | | | | [address] [place], | | | | | | [place] [address] | | | | | | [phone] | | | | | | | | +--------+---------+ + + + | 02/15/ | Office | Internal Medicine | Alanis, | | | 2019 | Visit | | MD Petrona | | | | | | [address] [place] [address] [place] | | | | | | [place] [address] | | | | | | [phone] | | | | | | | | +--------+---------+ + + + documented as of this encounter Visit Diagnoses Not on filedocumented in this encounter"
--- OUTSIDE RECORDS SUMMARY | ~2019-11-17 | XMS | Encounter Summary ---
Demographics + + + | Address | [address] | | | [place] [address] | + + + | Home Phone [...] + + | 01/21/ | Telephone | [facility] | Alanis, | Pain | | 2019 | | MEDICINE [address] [place] [address] | MD Petrona | | | | | [place] | [address] [place] [address] | | | | | [place] [address] | [place] [address] | | | | | [phone] | [phone] | | | | | | | [...] | | | | | [place] [address] | | | | | | [phone] | | | | | | | | +--------+---------+ + + + | 12/20/ | Office | Otolaryngology | Ulysses Genao MD | | | 2019 | Visit | | [address] [place] | | | | | | [address] [place], | | | | | | [place] [address] | | | | | | [phone] | | | | | | | | +--------+---------+ + + + | 02/15/ | Office | Internal Medicine | Alanis, | | | 2019 | Visit | | MD Petrona | | | | | | [address] [place] | | | | | | [place] [address] | | | | | | [phone] | | | | | | | | +--------+---------+ + + + documented as of this encounter Visit Diagnoses Not on filedocumented in this encounter"
--- OUTSIDE RECORDS SUMMARY | ~2019-11-17 | XMS | Encounter Summary ---
Demographics + + + | Address | [address] | | | [place] [address] | + + + | Home Phone [...] | | | Procedures | [place], | [place], [place] | | | | | REQUEST TO | [place] [address] | [address] | | | | | SURGERY | Phone: | | | | | | OBSTETRICS TEACHER | [phone] | | | | | | MT BONE | Fax: | | | | | | BIOPSY,OPEN | [phone] | | | | | | DEEP [...] | | | | | [place], | [place], [place] | | | | | | [place] [address] | [address] | | | | | | Phone: | | | | | | | [phone] | | | | | | | Fax: | | | | | | | [phone] | | +--------+--------+ + + + + [...] | (Primary Dx) | | | | [place], [place] | | | | | | [address] | | | | | | [phone] | | | +--------+---------+ + + + [...] 08/2007 right knee Hx lumbar fusion 05/2008 L5-L0hzbwng with bone spur removals Hx appendectomy Hx cholecystectomy Hx section Hx hysterectomy Gastric bypass Mayra Padgett wt 278 01/18 Paniculectomy Allergies: Allergies Allergen Reactions Keflex (Cephalexin) Sulfa (Sulfonamides) Codeine Penicillins Clindamycin Cipro (Ciprofloxacin) Tramadol Morphine IM ( only in [facility]) made gut pain worse 08/27/06: Trial of oral MSIR caused leg swelling Clarithromycin Hives Mainly in the legs Iagmgne-nssetwzsze-gbi-caff Balance problems Amitriptyline Grand mal seizures Medications: [...] signs are noted as recorded by the Furniture Associate. General: Alert, awake, and oriented x3. No [...] No: | | | | | | [id number] Name: | | | | | | BELINDA MEEHAN | | | | | | Birthday: 1960 | | | | | | Sex: F | | | | | | Alias:Patient Location: | | | | | | [id number]: Outpatient | | | | | | ActiveOrdering | | | | | | Physician: JOSÉ MIGUEL | | | | | | MARYSOL MORENO SCAPULA | | | | | | COMPLETE completed on | | | | | | 01/01/2009 11:55 | | | | | | AMAccession # | | | | | | [id number]:LEFT | | | | | | SCAPULA [...] | | | | | | Dr. BNONIE POZO | | | | + + [...]
--- OUTSIDE RECORDS SUMMARY | ~2019-11-17 | XMS | Encounter Summary ---
Demographics + + + | Address | [address] | | | [place] [address] | + + + | Home Phone [...] Providers + +------+ + | Care Assistant Community Manager Name | Role | Phone | [...] | Discussion | | 2007 | | [facility] & | MD | | | | | Healing Radha3 Sara Horta | | | | | | [place] Mailcode: CH8C | | | | | | [facility] | | | | | | and Healing, | | | | | | Building | | | | | | Floor [place], [place] | | | | | | [address] | | | | | | [phone] | | | +--------+ + + + [...]
--- OUTSIDE RECORDS SUMMARY | ~2019-11-17 | XMS | Encounter Summary ---
Demographics + + + | Address | [address] | | | [place] [address] | + + + | Home Phone [...] Team Providers + +------+ + | Care Ice Cream Machine Operator Name | Role | Phone [...] [address] | | | | | | [place], [place] | | | | | | [address] | | | | | | [phone] | | | +--------+ + + + [...] | | | | | [place] [address] | | | | | | [phone] | | | | | | | | +--------+---------+ + + + | 12/20/ | Office | Otolaryngology | Ulysses Genao MD | | | 2019 | Visit | | [address] [place] | | | | | | [address] [place], | | | | | | [place] [address] | | | | | | [phone] | | | | | | | | +--------+---------+ + + + | 02/15/ | Office | Internal Medicine | Alanis, | | | 2019 | Visit | | MD Petrona | | | | | | [address] [place] | | | | | | [place] [address] | | | | | | [phone] | | | | | | | | +--------+---------+ + + + documented as of this encounter Visit Diagnoses Not on filedocumented in this encounter"
--- OUTSIDE RECORDS SUMMARY | ~2019-11-17 | XMS | Encounter Summary ---
Demographics + + + | Address | [address] | | | [place] [address] | + + + | Home Phone [...] Providers + +------+ + | Care Net Lead Developer Name | Role | Phone | [...] Pavilion | | | | | | [place], [place] | | | | | | [address] | | | | | | [phone] | | | +--------+ + + + [...]
--- OUTSIDE RECORDS SUMMARY | ~2019-11-17 | XMS | Encounter Summary ---
Demographics + + + | Address | [address] | | | [place] [address] | + + + | Home Phone [...] Providers + +------+ + | Care Food Beverage Server Name | Role | Phone | [...] + + | 05/14/ | Telephone | [facility] | Erich Conley MD | Medication Refill | | 2018 | | MEDICINE [address] [place] [address] | [address] [facility] | | | | | Street [facility] | [place] | | | | | [place] [address] | [address] | | | | | [phone] | | | +--------+ + + + [...] | | | | | [place] [address] | | | | | | [phone] | | | | | | | | +--------+---------+ + + + | 12/20/ | Office | Otolaryngology | lUysses Genao MD | | | 2019 | Visit | | [address] [place] | | | | | | [address] [place], | | | | | | [place] [address] | | | | | | [phone] | | | | | | | | +--------+---------+ + + + | 02/15/ | Office | Internal Medicine | Alanis, | | | 2019 | Visit | | MD Petrona | | | | | | [address] [place] | | | | | | [place] [address] | | | | | | [phone] | | | | | | | | +--------+---------+ + + + documented as of this encounter Visit Diagnoses Not on filedocumented in this encounter"
--- OUTSIDE RECORDS SUMMARY | ~2019-11-17 | XMS | Encounter Summary ---
Demographics + + + | Address | [address] | | | [place] [address] | + + + | Home Phone [...] + +------+ + | Care Customer Engagement Manager Name | Role | Phone | [...] as of this encounter Progress Notes Interface, Greenkeeper In - 01/12/2005 8:09 AM PDT [id number] GEOVANNI [facility] Date: 03/07/2004 Clinic: [facility] CENTER TELEPHONE CONVERSATION Subjective: Belinda contacted [...] cholelithiasis. She is welcome to come to [facility] for evaluation; however, given the distance of a 4-hour travel time, we found it would be more expeditious for her to be seen at her local hospital in [place]. The patient also agrees with this plan [...] additional followup as needed. Christie Kirkpatrick / [id number] / [id number] / [id number] / documented i n this encounter Plan of Treatment Not on filedocumented as of this encounter Visit Diagnoses Not on filedocumented in this encounter"
--- OUTSIDE RECORDS SUMMARY | ~2019-11-17 | XMS | Encounter Summary ---
Demographics + + + | Address | [address] | | | [place] [address] | + + + | Home Phone [...] Providers + +------+ + | Care Garden Center Manager Name | Role | Phone [...] + + | 10/05/ | Refill | [facility] | Alanis, | Medication Refill | | 2017 | | MEDICINE [address] [place] [address] | MD Petrona | | | | | [facility] | [address] [place] [address] | | | | | [place] [address] | [place] [address] | | | | | [phone] | [phone] | | | | | | | [...] | | | | | [place] [address] | | | | | | [phone] | | | | | | | | +--------+---------+ + + + | 12/20/ | Office | Otolaryngology | Ulysses Genao MD | | | 2019 | Visit | | [address] [place] | | | | | | [address] [place], | | | | | | [place] [address] | | | | | | [phone] | | | | | | | | +--------+---------+ + + + | 02/15/ | Office | Internal Medicine | Alanis, | | | 2019 | Visit | | MD Petrona | | | | | | [address] [place] [address] [place] | | | | | | [place] [address] | | | | | | [phone] | | | | | | | | +--------+---------+ + + + documented as of this encounter Visit Diagnoses Not on filedocumented in this encounter"
--- OUTSIDE RECORDS SUMMARY | ~2019-11-17 | XMS | Encounter Summary ---
Demographics + + + | Address | [address] | | | [place] [address] | + + + | Home Phone [...] Providers + +------+ + | Care Manager Shipping Name | Role | Phone | + [...] + + | 06/30/ | Refill | [facility] | Alanis, | Medication Refill | | 2018 | | MEDICINE [address] [place] [address] | MD Petrona | | | | | [facility] | [address] [place] [address] | | | | | [place] [address] | [place] [address] | | | | | [phone] | [phone] | | | | | | | [...] | | | | | [place] [address] | | | | | | [phone] | | | | | | | | +--------+---------+ + + + | 12/20/ | Office | Otolaryngology | Ulysses Genao MD | | | 2019 | Visit | | [address] [place] | | | | | | [address] [place], | | | | | | [place] [address] | | | | | | [phone] | | | | | | | | +--------+---------+ + + + | 02/15/ | Office | Internal Medicine | EmmyCarmen, | | | 2019 | Visit | | MD Petrona | | | | | | [address]la [address] | | | | | | [place] [address] | | | | | | [phone] | | | | | | | | +--------+---------+ + + + documented as of this encounter Visit Diagnoses + + | Diagnosis | + + | Chronic bilateral low back pain without sciatica | + + documented in this encounter"
--- OUTSIDE RECORDS SUMMARY | ~2019-11-17 | XMS | Encounter Summary ---
Demographics + + + | Address | [address] | | | [place] [address] | + + + | Home Phone [...] Organization | [facility] | | | and [...] Team Providers + +------+ + | Care Horticultural Specialty Grower Name | Role | Phone | [...] + + | 07/06/ | Telephone | [facility] | Alanis, | Transfer Orders | | 2018 | | [address] | MD Petrona | | | | | [facility] | [address] [place] [address] | | | | | [place] [address] | [place] [address] | | | | | [phone] | [phone] | | | | | | | [...] | | | | | [place] [address] | | | | | | [phone] | | | | | | | | +--------+---------+ + + + | 12/20/ | Office | Otolaryngology | Ulysses Genao MD | | | 2019 | Visit | | [address] [place] | | | | | | [address] [place], | | | | | | [place] [address] | | | | | | [phone] | | | | | | | | +--------+---------+ + + + | 02/15/ | Office | Internal Medicine | Alanis, | | | 2019 | Visit | | MD Petrona | | | | | | [address] [place] | | | | | | [place] [address] | | | | | | [phone] | | | | | | | | +--------+---------+ + + + documented as of this encounter Visit Diagnoses Not on filedocumented in this encounter"
--- OUTSIDE RECORDS SUMMARY | ~2019-11-17 | XMS | Encounter Summary ---
Demographics + + + | Address | [address] | | | [place] [address] | + + + | Home Phone [...] Providers + +------+ + | Care Transition Coach Name | Role | Phone | [...] + + | 01/04/ | Office | [facility] [...] | Dependence, | | | | Floor [place], [place] | | Continuous ([facility]); | | | | [address] | | Migraine Headache; | | | | [phone] | | Fibromyalgia | | | | [...] Belinda Meehan is a 46 y.o. female [facility] [...] and Independent Home Exercise Program DELFINA MOLINA [facility] Mail code [address] [place] [facility] and [place] [id number] [facility] [address] Ailyn Foster - 01/05/20 07 [...] medication refills today? yes [facility] Plan of Treatment Not on [...]
--- OUTSIDE RECORDS SUMMARY | ~2019-11-17 | XMS | Encounter Summary ---
Demographics + + + | Address | [address] | | | [place] [address] | + + + | Home Phone [...] Providers + +------+ + | Care Machine Installer Name | Role | Phone [...] + + | 06/25/ | Refill | [facility] | Alanis, | Medication Refill | | 2018 | | MEDICINE [address] [place] [address] | MD Petrona | | | | | [facility] | [address] [place] [address] | | | | | [place] [address] | [place] [address] | | | | | [phone] | [phone] | | | | | | | [...] | | | | | [place] [address] | | | | | | [phone] | | | | | | | | +--------+---------+ + + + | 12/20/ | Office | Otolaryngology | Ulysses Genao MD | | | 2019 | Visit | | [address] [place] | | | | | | [address] [place], | | | | | | [place] [address] | | | | | | [phone] | | | | | | | | +--------+---------+ + + + | 02/15/ | Office | Internal Medicine | EmmyAnjum, | | | 2019 | Visit | | MD Petrona | | | | | | [address] | | | | | | [place] [address] | | | | | | [phone] | | | | | | | | +--------+---------+ + + + documented as of this encounter Visit Diagnoses + + | Diagnosis | + + | Nausea - Primary Nausea alone | + + documented in this encounter"
--- OUTSIDE RECORDS SUMMARY | ~2019-11-17 | XMS | Encounter Summary ---
Demographics + + + | Address | [address] | | | [place] [address] | + + + | Home Phone [...] Providers + +------+ + | Care Engraver Signature Name | Role | Phone | + [...] | | sciatica | [address] | [address] | | | | | Lumbar | [place], | Phone: | | | | | stenosis | [place] | [phone] | | | | | Opiate | [address] | Fax: | | | | | dependence, | Phone: | [phone] | | | | | continuous | [phone] | | | | | | (HCC) | Fax: | | | | | | | [phone] | | +--------+ + + + + + Reason for Visit + + + | Reason | Comments | + + + | Medication Refill | | + + + Encounter Details +--------+---------+ + + + | Date | Type | Department | Care Team | Description | +--------+---------+ + + + | 02/23/ | Office | [facility] | Emmy-Tajti, | B12 deficiency | | 2017 | Visit | MEDICINE [address] [place] [address] | MD Petrona | (Primary Dx); | | | | [facility] | [address] [place] [address] | Chronic bilateral | | | | [place] [address] | [place] [address] | low back pain | | | | [phone] | [phone] | without sciatica; | | | | [...] AM PDTWe are referr ing you to [facility] in [place]. B12 shot today. documented in this encounter Progress Notes Petrona Thapa MD - 02/23/2017 10:15 AM PDTFormatting of this note might be d ifferent from the original. CHIEF COMPLAINT Chief Complaint Patient presents with Medication Refill HPI Belinda Praful Meehan is a 57 [...] interested in seein a pain clinic in [facility] as she is an [place] resident. No [...] Chronic pain COPD (chronic obstructive pulmonary disease) ([facility]) Depression Diarrhea Dumping syndrome Fibromyalgia Hyperparathyroidism ([facility]) Hypothyroidism IBS (irritable bowel syndrome) Lumbar radiculopathy primarily right 01/04/2015 Meniere syndrome Migraine Migraines Obesity OLIVER (obstructive sleep apnea) Osteoarthritis, generalized Osteopenia Osteoporosis Peripheral neuropathy ([facility]) Rheumatoid arthritis ([facility]) Right arm pain 01/04/2015 RLS (restless legs syndrome) S/P lumbar fusion 01/04/2015 Scoliosis Stroke ([facility]) Syncope Tremor FAMILY HISTORY Family [...] Reactions Levofloxacin Hives and Itching Amitriptyline Hcl Gfouisycpt-Lfss-Yxndpuge Cephalexin Ciprofloxacin Clarithromycin Clindamycin Hcl Codeine Sulfate [...] | | [facility] [address] | | | | | | [facility] [address] [facility] | | | | | | [place] [address] | | | | | | [phone] | | | | | | | | +--------+---------+ + + + | 12/20/ | Office | Otolaryngology | Ulysses Genao MD | | | 2019 | Visit | | [address] [place] | | | | | | [address] [place], | | | | | | [place] [address] | | | | | | [phone] | | | | | | | | +--------+---------+ + + + | 02/15/ | Office | Internal Medicine | Alanis, | | | 2019 | Visit | | MD Petrona | | | | | | [address] [place] | | | | | | [place] [address] | | | | | | [phone] | | | | | | | [...]
--- OUTSIDE RECORDS SUMMARY | ~2019-11-17 | XMS | Encounter Summary ---
Demographics + + + | Address | [address] | | | [place] [address] | + + + | Home Phone [...] Providers + +------+ + | Care Learning Designer Name | Role | Phone | [...] | | | | SURGERY - | [place], [place] | [facility] [place] | | | | | UROLOGY | [address] | for Health | | | | | | Phone: | dat Cheyanne, | | | | | | [phone] | Building [address], | | | | | | Fax: | 10th Floor | | | | | | [phone] | [place], [place] | | | | | | | [address] | | | | | | | Phone: | | | | | | | [phone] | | | | | | | Fax: | | | | | | | [phone] | +--------+--------+ + + + + Reason [...] | | | [facility] | [facility] [place] | Bariatric Surgery | | | | and Healing, | [address] | | | | | [facility] | [phone] | | | | | Floor [place], [place] | | | | | | [address] | | | | | | [phone] | | | +--------+---------+ + + + [...] coughing. Medications: Fentanyl 25 mcg 72 hours, [place]/JOJO 10 mg/325 mg PRN Q 6 hrs, [...]
--- OUTSIDE RECORDS SUMMARY | ~2019-11-17 | XMS | Encounter Summary ---
Demographics + + + | Address | [address] | | | [place] [address] | + + + | Home Phone [...] Team Providers + +------+ + | Care Digester Capper Name | Role | Phone | + [...] | | | [facility] | [place], [place] | | | | | [address] | [address] | | | | | [address] | [phone] | | | | | Physician's | | | | | | Pavilion, 1st floor | | | | | | [place], [place] | | | | | | [address] | | | | | | [phone] | | | +--------+ + + + [...]
--- OUTSIDE RECORDS SUMMARY | ~2019-11-17 | XMS | Encounter Summary ---
Demographics + + + | Address | [address] | | | [place] [address] | + + + | Home Phone [...] + + | 10/13/ | Telephone | [facility] | Alanis, | Appointment Question | 2019 | | MEDICINE [address] [place] [address] | MD Petrona | | | | | [facility] | [address] [place] [address] | | | | | [place] [address] | [place] [address] | | | | | [phone] | [phone] | | | | | | | [...] [place] | | | | | | [place] [address] | | | | | | [phone] | | | | | | | | +--------+---------+ + + + | 12/20/ | Office | Otolaryngology | Ulysses Genao MD | | | 2019 | Visit | | [address] [place] | | | | | | [address] [place], | | | | | | [place] [address] | | | | | | [phone] | | | | | | | | +--------+---------+ + + + | 02/15/ | Office | Internal Medicine | Alanis, | | | 2019 | Visit | | MD Petrona | | | | | | [address] | | | | | | [place] [address] | | | | | | [phone] | | | | | | | | +--------+---------+ + + + documented as of this encounter Visit Diagnoses Not on filedocumented in this encounter"
--- OUTSIDE RECORDS SUMMARY | ~2019-11-17 | XMS | Encounter Summary ---
Demographics + + + | Address | [address] | | | [place] [address] | + + + | Home Phone [...] Providers + +------+ + | Care Prop Sawyer Name | Role | Phone | [...]
--- OUTSIDE RECORDS SUMMARY | ~2019-11-17 | XMS | Encounter Summary ---
Demographics + + + | Address | [address] | | | [place] [address] | + + + | Home Phone [...] + +------+ + | Care Government Affairs Specialist Name | Role | Phone | + +------+ + | Sulaiman Carrera MD | PCP | | + +------+ + Encounter Details +--------+ + + + + | Date | Type | Department | Care Team | Description | +--------+ + + + + | 06/30/ | Telephone | [facility] at [facility] | Lukasz Ogden, | | | 2013 | | [address] | PhD [address] | | | | | Mailcode: CH15P | [place], [place] | | | | | [facility] | [address] | | | | | and Healing, | [phone] | | | | | Building | | | | | | Floor [place], [place] | | | | | | [address] | | | | | | [phone] | | | +--------+ + + + [...]
--- OUTSIDE RECORDS SUMMARY | ~2019-11-17 | XMS | Encounter Summary ---
Demographics + + + | Address | [address] | | | [place] [address] | + + + | Home Phone [...] Team Providers + +------+ + | Care Window/Distribution Clerk Name | Role | Phone | [...] as of this encounter Progress Notes Interface, Deputy Program Manager In - 04/07/2006 2:32 AM PDT [id number] GEOVANNI SKELTON Molly [id number] Clinic Date: 04/01/2006 Clinic: Rheumatology Belinda Meehan is here for a couple of trigger point injections. She comes from [place]. Tomorrow, she is due for an EGD [...] 4 months. Caitlin Rivera M.S., F.N.P. / [id number] / [id number] / [id number] / [id number] Electronically signed by Caitlin Rivera 04-06-2006 03:23:35 PM documented i n this encounter Plan of Treatment Not on filedocumented as of this encounter Visit Diagnoses Not on filedocumented in this encounter"
--- OUTSIDE RECORDS SUMMARY | ~2019-11-17 | XMS | Encounter Summary ---
Demographics + + + | Address | [address] | | | [place] [address] | + + + | Home Phone [...] Providers + +------+ + | Care Plumber Name | Role | Phone | [...] of this encounter Progress Notes Interface, Director College In - 01/12/2005 8:09 AM PDT [id number] GEOVANNI Barnes Clinic Date: 03/07/2004 Clinic: [facility] TELEPHONE CONVERSATION Subjective: Belinda contacted [...] cholelithiasis. She is welcome to come to [facility] for evaluation; however, given the distance of a 4-hour travel time, we found it would be more expeditious for her to be seen at her local hospital in [place]. The patient also agrees with this plan [...] additional followup as needed. Christie Kirkpatrick / [id number] / [id number] / [id number] / documented i n this encounter Plan of Treatment Not on filedocumented as of this encounter Visit Diagnoses Not on filedocumented in this encounter"
--- OUTSIDE RECORDS SUMMARY | ~2019-11-17 | XMS | Encounter Summary ---
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[facility] | [address] [facility] | without Myelopathy | | | | [address] | Clementina Winkler [place], | (Primary Dx); | | | | [address] Mailcode: | [place] [address] | 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 Provider: DELFINA MOLINA ANP elfina Molina - 007 6:13 PM PST.pt rlands Nathalia willson - 07/15/2006 4:28 PM PSTFormatting of this note might be different from the origin al. Physical Therapy Medicare Progress Note Date: 07/15/2006 Belinda Meehan [id number]. 1960 Start of Care: 06/23/2006 Referring Provider: [...]
--- OUTSIDE RECORDS SUMMARY | ~2019-11-17 | XMS | Encounter Summary ---
Demographics + + + | Address | [address] | | | [place] [address] | + + + | Home Phone [...] Providers + +------+ + | Care Data Center Engineer Name | Role | Phone | [...] + + | 06/26/ | Telephone | [facility] | Alanis, | ER Follow-up | | 2017 | | MEDICINE [address] [place] [address] | MD Petrona | | | | | [facility] | [address] [place] [address] | | | | | [place] [address] | [place] [address] | | | | | [phone] | [phone] | | | | | | | [...] | | | | | [place] [address] | | | | | | [phone] | | | | | | | | +--------+---------+ + + + | 12/20/ | Office | Otolaryngology | Ulysses Genao MD | | | 2019 | Visit | | [address] [place] | | | | | | [address] [place], | | | | | | [place] [address] | | | | | | [phone] | | | | | | | | +--------+---------+ + + + | 02/15/ | Office | Internal Medicine | Alanis, | | | 2019 | Visit | | MD Petrona | | | | | | [address] | | | | | | [place] [address] | | | | | | [phone] | | | | | | | | +--------+---------+ + + + documented as of this encounter Visit Diagnoses Not on filedocumented in this encounter"
--- OUTSIDE RECORDS SUMMARY | ~2019-11-17 | XMS | Encounter Summary ---
Demographics + + + | Address | [address] | | | [place] [address] | + + + | Home Phone [...] Team Providers + +------+ + | Care Ortho/Prosthetic Aide Name | Role | Phone | [...] as of this encounter Progress Notes Interface, Subcontract Administrator In - 01/12/2005 12:26 AM PDT [id number] GEOVANNI Barnes Clinic Date: 07/25/2004 Clinic: Rheumatology [...] weight that she has lost. At the [employer], a study was presented [...] 6 months. Caitlin Rivera M.S., F.N.P. / [id number] / [id number] / [id number] / [id number] cc: Pedrito Gutierrez M.D. [address] [facility] [place] [address] Electronically signed by Caitlin Rivera 07-31-2004 12:02:37 PM documented i n this encounter Plan of Treatment Not on filedocumented as of this encounter Visit Diagnoses Not on filedocumented in this encounter"
--- OUTSIDE RECORDS SUMMARY | ~2019-11-17 | XMS | Encounter Summary ---
Demographics + + + | Address | [address] | | | [place] [address] | + + + | Home Phone [...] + +------+ + | Care Accounts Payable Lead Name | Role | Phone | [...] | | | | Clinical Nutrition | [place], [place] | | | | | [address] | [address] | | | | | Loop Mailcode: OPC5 | [phone] | | | | | Outpatient Clinic | | | | | | [facility] | | | | | | [place] [address] | | | | | | [phone] | | | +--------+ + + + [...] [facility] | [address] | [place], [place] | | | [facility] | | [address] | | + + + + + [...] + + + | [facility] | [address] | [place] [address] | | | LABORATORY | | | [...] DEPARTMENT OF | [address] | [place] [address] | | | PATHOLOGY | [address] | | | + + + + + | [facility] DEPARTMENT OF | [address] | [place] [address] | | | PATHOLOGY | [address] | | | + + + + + LIPASE (01/11/2002 3:50 PM PDT) + +--------+ + + + | Component | Value | Ref Range | Performed | Pathologist | | | | | At | Signature | + +--------+ + + + | LIPASE | 21 (L) | 22 - 51 U/L | [facility] | | | (LAB) | | [...] [facility] | [address] [facility] | [place] [address] | | | PATHOLOGY | [address] | | | + + + + + | [facility] | [facility] | [place] [address] | | | PATHOLOGY | [address] [...] DEPARTMENT OF | [address] | [place] [address] | | | PATHOLOGY | [address] | | | + + + + + | [facility] DEPARTMENT | [address] | [place] [address] | | | PATHOLOGY | [address] [...] HEALTH SERVICES | [address] | [place] [address] | | | PATHOLOGY | [address] | | | + + + + + | [facility] | [facility] [address] | [place] [address] | | | PATHOLOGY | [address] | | | + + + + + documented in this encounter Visit Diagnoses Not on filedocumented in this encounter"
--- OUTSIDE RECORDS SUMMARY | ~2019-11-17 | XMS | Encounter Summary ---
Demographics + + + | Address | [address] | | | [place] [address] | + + + | Home Phone [...] + +------+ + | Care Annual Giving Manager Name | Role | Phone | [...] Lab Results | | 2012 | | [place] [facility] [address] | GEOPHYSICAL LABORATORY DIRECTOR [address] | | | | | [address] | [facility] [address] | | | | | Mailcode: Center | [place], [place] | | | | | for Health and | [address] | | | | | [place] [address] | [phone] | | | | | [place], [place] | | | | | | [address] | | | | | | [phone] | | | +--------+ + + + [...]
--- OUTSIDE RECORDS SUMMARY | ~2019-11-17 | XMS | Encounter Summary ---
Demographics + + + | Address | [address] | | | [place] [address] | + + + | Home Phone [...] + +------+ + | Care Roll Up Guider Operator Name | Role | Phone | [...] [id number] | | | | | | [place], [place] | | | | | | [address] | | | | | | [phone] | | | +--------+ + + + [...]
--- OUTSIDE RECORDS SUMMARY | ~2019-11-17 | XMS | Encounter Summary ---
Demographics + + + | Address | [address] | | | [place] [address] | + + + | Home Phone [...] 07/31/ | Telephone | [facility] | Miranad Lambert, | | | 2006 | | Center Outpatient | ANP | | | | | Therapy Center [address] | | | [address] | | | | | | Outpatient Therapy | | | | | | Center 2nd floor | | | | | | Mailcode: OP26 | | | | | | [place], [place] | | | | | | [address] | | | | | | [phone] | | | +--------+ + + + [...]
--- OUTSIDE RECORDS SUMMARY | ~2019-11-17 | XMS | Encounter Summary ---
Demographics + + + | Address | [address] | | | [place] [address] | + + + | Home Phone [...] Providers + +------+ + | Care Radiology Special Procedure Tech Name | Role | Phone | + +------+ + | Crystal Gutierrez MD | PCP | | + +------+ + Encounter Details +--------+ + + + + | Date | Type | Department | Care Team | Description | +--------+ + + + + | 09/14/ | Procedure - | [facility] Division of | Endoscopy, Gi | [...] [address] | | | | | | [place], [place] | | | | | | [address] | | | | | | [phone] | | | +--------+ + + + [...] + + + | PROCEDURES:PANENDOSCOPY (EGD) CPT: [id number]. PERSONNEL:THE | | | ATTENDING PHYSICIAN WAS [...] AM PDT | | PROCEDURES:PANENDOSCOPY (EGD) CPT: [id number]. | | PERSONNEL:THE ATTENDING PHYSICIAN WAS PRESENT [...]
--- OUTSIDE RECORDS SUMMARY | ~2019-11-17 | XMS | Encounter Summary ---
Demographics + + + | Address | [address] | | | [place] [address] | + + + | Home Phone [...] Team Providers + +------+ + | Care Hedge Fund Trader Name | Role | Phone | [...] | [facility] | [address] | | | | n | [address] Mailcode: RPB07 | [place], [place] | | | | | [place], [place] | [address] | | | | | [address] | [phone] | | | | | [phone] | | | +--------+ + + + [...] DEPARTMENT OF | [address] | [place] [address] | | | PATHOLOGY | [address] | | | + + + + + | [facility] DEPARTMENT OF | [address] | [place] [address] | | | PATHOLOGY | [address] [...] [facility] DEPARTMENT OF | [address] [facility] | [place] [address] | | | PATHOLOGY | [address] | | | + + + + + | [place] DEPARTMENT OF | [address] [facility] | [place] [address] | | | PATHOLOGY | [address] [...] | + + + + + | [facility] | [address] | [place] [address] | | | LABORATORY | | | | + + + + + documented in this encounter Visit Diagnoses Not on filedocumented in this encounter"
--- OUTSIDE RECORDS SUMMARY | ~2019-11-17 | XMS | Encounter Summary ---
Demographics + + + | Address | [address] | | | [place] [address] | + + + | Home Phone [...] Providers + +------+ + | Care Furnace Filler Name | Role | Phone | [...] 2005 | Activity | TRACE Wilson MD [address] | | | | | [address] Mailcode: RPB07 | [place], [place] | | | | | [place] | [address] | | | | | [address] | [phone] | | | | | [phone] | | | +--------+ + + + [...] M.D./PathologistT:04/06/ | | | | | | 06:[facility] I have reviewed | | | [...] Cherry | | | | | | MNajamPathologistElectroni | | | | | | mary carmen Signed 04/06/2006 | | | | + + + + + + + + | Specimen | + + | | + + + + + + + | Performing | Address | City/State/Zipcode | Phone Number | | Organization | | | | + + + + + | [facility] | [address] | [place] [address] | | | PATHOLOGY | [address] | | | + + + + + | [facility] DEPARTMENT OF | [facility] | [place] [address] | | | PATHOLOGY | [address] | | | + + + + + documented in this encounter Visit Diagnoses Not on filedocumented in this encounter"
--- OUTSIDE RECORDS SUMMARY | ~2019-11-17 | XMS | Encounter Summary ---
Demographics + + + | Address | [address] | | | [place] [address] | + + + | Home Phone [...] Providers + +------+ + | Care Salesperson Meats Name | Role | Phone | [...] | | | [address] | [address] Phone: | | | | | | [place], | [phone] | | | | | | [place] | Fax: | | | | | | [address] | [phone] | | | | | | Phone: | | | | | | | [phone] | | | | | | | Fax: | | | | | | | [phone] | | +--------+--------+ + + + + [...] Chronic neck pain; | | | | [address] | | Chronic low back | | | | [phone] | | pain; Lumbar | | | [...] 8:13 AM PDT Carlos Hsieh MD [address] [facility], [address] [place] [address] FAX: PHYSICAL MEDICINE AND REHABILITATION H&P CHIEF COMPLAINT: Chief Complaint Patient presents with Neck Pain Neck pain that radiates between the shoulder blades and down from there HISTORY OF PRESENT ILLNESS: The patient is a 54 y.o. female being seen today at the [facility] of Dr. Booth for complaints of [...] were performed by a Dr. García in [place]. Th e patient is unable to take NSAID's because apparently last time she took them she was black and blue all over. PAST MEDICAL HISTORY: Past Medical History Diagnosis Date Diarrhea Osteoarthritis, generalized Migraine Osteopenia Obesity Syncope Hyperparathyroidism (HCC) RLS (restless legs syndrome) OLIVER (obstructive sleep apnea) Depression COPD (chronic obstructive pulmonary disease) ([facility]) Fibromyalgia Peripheral neuropathy Chronic pain Benign essential hypertension Rheumatoid arthritis ([facility]) IBS (irritable bowel syndrome) Scoliosis Hypothyroidism Stroke ([facility]) Blind left eye Arthritis Osteoporosis Migraines Dumping [...] visit. ALLERGIES: Allergies Allergen Reactions Amitriptyline Hcl Muoevrnnxu-Pqwp-Oztsedyy Cephalexin Ciprofloxacin Clarithromycin Clindamycin Hcl Codeine Sulfate [...] has no apparent deficits with short or joint terminal attack controller memory. She has appropriate fund of knowledge [...] of the cervical spine next week at [facility]. The patient was informed to contact our [...] | | | | | [place] [address] | | | | | | [phone] | | | | | | | | +--------+---------+ + + + | 12/20/ | Office | Otolaryngology | Ulysses Genao MD | | | 2019 | Visit | | [address] | | | | | | [address] [place], | | | | | | [place] [address] | | | | | | [phone] | | | | | | | | +--------+---------+ + + + | 02/15/ | Office | Internal Medicine | Alanis, | | | 2019 | Visit | | MD Petrona | | | | | | [address] [place] [address] [address] | | | | | | [place] [address] | | | | | | [phone] | | | | | | | [...] radiculopathy ICD-9 Code 724.4 Belinda Basilio | [facility] | | Shefali presents to the fluoroscopy suite for [facility] | | fluoroscopically-guided bilateral L5-S1 [...] | [address] | [address] | [place] | [phone] | | [facility] | | [address] | | | - IMAGING | | [...]
--- OUTSIDE RECORDS SUMMARY | ~2019-11-17 | XMS | Encounter Summary ---
Demographics + + + | Address | [address] | | | [place] [address] | + + + | Home Phone [...] Providers + +------+ + | Care Alarm Installer Name | Role | Phone | [...] [address] | | | | | [place], [place] | [place], [place] | | | | | [address] | [address] | | | | | [phone] | [phone] | | | | | | | [...]
--- OUTSIDE RECORDS SUMMARY | ~2019-11-17 | XMS | Encounter Summary ---
Demographics + + + | Address | [address] | | | [place] [address] | + + + | Home Phone [...] Providers + +------+ + | Care Regional Controller Name | Role | Phone | [...] [address]26 | | | | | | [place], [place] | | | | | | [address] | | | | | | [phone] | | | +--------+ + + + [...]
--- OUTSIDE RECORDS SUMMARY | ~2019-11-17 | XMS | Encounter Summary ---
Demographics + + + | Address | [address] | | | [place] [address] | + + + | Home Phone [...] Team Providers + +------+ + | Care Toll Line Mechanic Name | Role | Phone | [...] of this encounter Progress Notes Interface, Dental Biller In - 02/15/2006 2:03 AM PDT [id number] GEOVANNI SKELTON [place] [id number] Clinic Date: 10/23/2005 Clinic: Endocrinology Subjective: Belinda [...] her back on October 06, 2005, in [place], [place]. This study showed a moderate central disk bulge at L4-L5 consistent with a herniated nucleus pulposus. There has been some discussion by her physicians in [place] about the possibility of giving her epidural [...] most recent laboratory studies were performed in [place] on July 02, 2005. At that time, [...] months. Beto Meeks M.D. PD / HS [id number] / [id number] / [id number] / cc: Joanna Arshad M.D. [address] [place] [address] Electronically signed by Beto Meeks 02-14-2006 02:02:42 AM documented i n this encounter Plan of Treatment Not on filedocumented as of this encounter Visit Diagnoses Not on filedocumented in this encounter"
--- OUTSIDE RECORDS SUMMARY | ~2019-11-17 | XMS | Encounter Summary ---
Demographics + + + | Address | [address] | | | [place] [address] | + + + | Home Phone [...] Providers + +------+ + | Care Service Mechanic Name | Role | Phone | [...] 09/23/ | Office | [facility] at [facility] | Lukasz Charles, | Major Depressive | | 2006 | Visit | [address] | PhD [address] | Disorder, Recurrent | | | | Mailcode: CH15 | [place], [place] | Episode, Moderate | | | | [facility] | [address] | (HCC); Chronic | | | | and Healing, | [phone] | Abdominal Pain; | | | | Building | | Herniated Lumbar | | | | Floor [place], [place] | | Intervertebral Disc | | | | [address] | | L4-5; DJD | | | | [phone] | | (Degenerative Joint | | | [...] progress but still neglects self-care occasionally. Diagnosis: Mcclusky I: 1. (296.32) Major depressive disorder, recurrent, moderate. 2. (309.24) Adjustment disorder with anxiety. 3. 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 Mcclusky II: Deferred Mcclusky III: abdominal pain, migraine headache, low back pain. Mcclusky IV: low finances Mcclusky V: GAF 50 Plan: Return in 2 weeks. Check preparation for move and for niece's visit, [employer] gym, pacing, r elaxation, activity, distraction. Check managing Pain... book. Discuss need for further vi sits. Total time spent with patient was approximately 45 minutes. LUKASZ CHARLES PHD [facility] [address] [facility], [address] [place] [address] documented in this encount er Plan of [...]
--- OUTSIDE RECORDS SUMMARY | ~2019-11-17 | XMS | Encounter Summary ---
Demographics + + + | Address | [address] | | | [place] [address] | + + + | Home Phone [...] Providers + +------+ + | Care Label Printing Machinist Name | Role | Phone [...] + + | 06/29/ | Telephone | [facility] | Alanis, | Illness | | 2018 | | MEDICINE [address] [place] [address] | MD Petrona | | | | | [facility] | [address] [place] [address] | | | | | [place] [address] | [place] [address] | | | | | [phone] | [phone] | | | | | | | [...] | | | | | [place] [address] | | | | | | [phone] | | | | | | | | +--------+---------+ + + + | 12/20/ | Office | Otolaryngology | Ulysses Genao MD | | | 2019 | Visit | | [address] | | | | | | [address] [place], | | | | | | [place] [address] | | | | | | [phone] | | | | | | | | +--------+---------+ + + + | 02/15/ | Office | Internal Medicine | Alanis, | | | 2019 | Visit | | MD Petrona | | | | | | [address] | | | | | | [place] [address] | | | | | | [phone] | | | | | | | | +--------+---------+ + + + documented as of this encounter Visit Diagnoses Not on filedocumented in this encounter"
--- OUTSIDE RECORDS SUMMARY | ~2019-11-17 | XMS | Encounter Summary ---
Demographics + + + | Address | [address] | | | [place] [address] | + + + | Home Phone [...] Providers + +------+ + | Care Chemical Mixer Name | Role | Phone | [...] + + | 06/17/ | Office | [facility] | Emmy-Kamlesh, | Migraine without | | 2019 | Visit | MEDICINE [address] [place] [address] | MD Petrona | aura and without | | | | Street [place] | [address] [place] [address] | status migrainosus, | | | | [place] [address] | [place] [address] | not intractable | | | | [phone] | [phone] | (Primary Dx); | | | | [...] her lower extremities. [facility] recently showing chronic d egenerative changes and disc bulges in her lower back with no significant stenosis or other acute indications for neurosurgery. Findings were similar to a previous MRI from a few year s ago. She did have back surgery in [facility] on a number of years ago. She [...] spasm Myalgia Nonalcoholic hepatosteatosis Obesity Opioid dependence ([facility]) Orthostatic hypotension OLIVER (obstructive sleep apnea) Osteoarthritis, generalized Osteopenia Osteoporosis Peripheral neuropathy Rheumatoid arthritis ([facility]) Right arm pain 01/04/2015 RLS (restless legs syndrome) S/P lumbar fusion 01/04/2015 Scoliosis Sleep apnea Spondylosis with myelopathy, lumbar region Stroke ([facility]) Syncope Tremor Type II or unspecified [...] Procedure: COLONOSCOPY; Surgeon: Luther Brito MD; Location: [facility] DILATION AND CURETTAGE OF UTERUS ELBOW SURGERY FINGER TRIGGER RELEASE 2002 FINGER TRIGGER RELEASE 2009 GASTRIC BYPASS SURGERY 2004 HYSTERECTOMY 05/14/1980 JOINT REPLACEMENT Bilateral 2007 2007 KNEE ARTHROSCOPY 2005 LAPAROSCOPY 01/27/2015 LAPAROTOMY 2008 ROTATOR CUFF REPAIR 2005 SPINE SURGERY TONSILLECTOMY 1964 UPPER GASTROINTESTINAL ENDOSCOPY N/A 12/18/2017 Procedure: EGD; Surgeon: Luther Brito MD; Location: [facility] CURRENT MEDICATIONS Current [...] (See Comments) Confused and questionable for seizures Xbvopcalbe-Zdgd-Fsiqipxb Hives and Rash Cephalexin Hives Ciprofloxacin Hives [...] - We'll refer for physical therapy in [place], including aquatic therapy. FOLLOW-UP Return in about 3 months (around 09/15/2018). Note: Parts of this documentwere created using [employer] Garden speech recognition software. As a r esult, there may be unintended word spelling errors. Every attempt was made to correct the dictation. Shanta Trevino Scanning Manager - 06/17/2018 10:45 AM PSTFormatting of this note might be diff erent from the original. Administrations This Visit cyanocobalamin (VITAMIN B-12) injection 1,000 mcg Admin Date 06/17/2018 Action Given Dose 1000 mcg Route Intramuscular Administered By Shanta Whaley Scanning Manager Pt tolerated B-12 injection well. documented [...] | | | | | [place] [address] | | | | | | [phone] | | | | | | | | +--------+---------+ + + + | 12/20/ | Office | Otolaryngology | Ulysses Genao MD | | | 2019 | Visit | | [address] | | | | | | [address] [place], | | | | | | [place] [address] | | | | | | [phone] | | | | | | | | +--------+---------+ + + + | 02/15/ | Office | Internal Medicine | Alanis, | | | 2019 | Visit | | MD Petrona | | | | | | [address] [place] | | | | | | [place] [address] | | | | | | [phone] | | | | | | | [...]
--- OUTSIDE RECORDS SUMMARY | ~2019-11-17 | XMS | Encounter Summary ---
Demographics + + + | Address | [address] | | | [place] [address] | + + + | Home Phone [...] Team Providers + +------+ + | Care Plc Engineer Name | Role | Phone | [...] | back pain | [place], | [address] | | | | | with | [place] | Phone: | | | | | bilateral | [address] | [phone] | | | | | sciatica | Phone: | Fax: | | | | | Procedures | [phone] | [phone] | | | | | MRI Lumbar | Fax: | | | | | | Spine wo | [phone] | | | | | | Contrast [...] + + | 05/17/ | Office | [facility] | Emmy-Tacliffordti, | Lumbar | | 2018 | Visit | MEDICINE [address] [place] [address] | MD Petrona | radiculopathy, acute | | | | Street [place] | [address] [place] [address] | (Primary Dx); Acute | | | | [place] [address] | [place] [address] | midline low back | | | | [phone] | [phone] | pain with bilateral | | | [...] insufficiency Coccydynia COPD (chronic obstructive pulmonary disease) ([facility] [...] Surgeon: Luther Brito MD; Location: [facility] DILATION AND CURETTAGE OF UTERUS ELBOW SURGERY FINGER TRIGGER RELEASE 2002 FINGER TRIGGER RELEASE 2010 GASTRIC BYPASS SURGERY 2004 HYSTERECTOMY 05/14/1980 JOINT REPLACEMENT Bilateral 2007 2008 KNEE ARTHROSCOPY 2005 LAPAROSCOPY 01/27/2015 LAPAROTOMY 2008 ROTATOR CUFF REPAIR 2005 SPINE SURGERY TONSILLECTOMY 1964 UPPER GASTROINTESTINAL ENDOSCOPY N/A 12/18/2017 Procedure: EGD; Surgeon: Luther Brito MD; Location: [facility] CURRENT MEDICATIONS Current [...] ours as needed for Pain. Incontinence Supplies [facility] As directed 100 each 11 levothyroxine (SYNTHROID) [...] (See Comments) Confused and questionable for seizures Wiewblnbpu-Yhex-Hrsrrwws Hives and Rash Cephalexin Hives Ciprofloxacin Hives [...] Note: Parts of this documentwere created using [employer] speech recognition software. As a r esult, [...] | | | | | [place] [address] | | | | | | [phone] | | | | | | | | +--------+---------+ + + + | 12/20/ | Office | Otolaryngology | Ulysses Genao MD | | | 2019 | Visit | | [address] [place] | | | | | | [address] [place], | | | | | | [place] [address] | | | | | | [phone] | | | | | | | | +--------+---------+ + + + | 02/15/ | Office | Internal Medicine | Alanis, | | | 2019 | Visit | | MD Petrona | | | | | | [address] | | | | | | [place] [address] | | | | | | [phone] | | | | | | | [...] | | | | First dose on [facility] 10/15/17 at 1215 | | [...]
--- OUTSIDE RECORDS SUMMARY | ~2019-11-17 | XMS | Encounter Summary ---
Demographics + + + | Address | [address] | | | [place] [address] | + + + | Home Phone [...] Providers + +------+ + | Care Laborer General Name | Role | Phone | + [...] + + | 04/09/ | Telephone | [facility] Division of | Carlos Arreola, | Erroneous Encounter | | 2005 | | Gastroenterology/Hep | [address] | - Disregard | | | | atology [address] | (duplicate call; see | | | | [address] | [place] [address] | other encounter ) | | | | Mailcode: PV310 | [phone] | | | | | [facility] | | | | | | [address] | | | | | | [place], [place] | | | | | | [address] | | | | | | [phone] | | | +--------+ + + + [...]
--- OUTSIDE RECORDS SUMMARY | ~2019-11-17 | XMS | Encounter Summary ---
Demographics + + + | Address | [address] | | | [place] [address] | + + + | Home Phone [...] Providers + +------+ + | Care General Teller Name | Role | Phone | [...] + | 02/01/ | Telephone | [facility] | Alanis, | Other (B12 shot) | | 2017 | | MEDICINE [address] [place] [address] | MD Petrona | | | | | [facility] | [address] [place] [address] | | | | | [place] [address] | [place] [address] | | | | | [phone] | [phone] | | | | | | | [...] | | | | | [place] [address] | | | | | | [phone] | | | | | | | | +--------+---------+ + + + | 12/20/ | Office | Otolaryngology | Ulysses Genao MD | | | 2019 | Visit | | [address] | | | | | | [address] [place], | | | | | | [place] [address] | | | | | | [phone] | | | | | | | | +--------+---------+ + + + | 02/15/ | Office | Internal Medicine | Alanis, | | | 2019 | Visit | | MD Petrona | | | | | | [address] [place] | | | | | | [place] [address] | | | | | | [phone] | | | | | | | | +--------+---------+ + + + documented as of this encounter Visit Diagnoses Not on filedocumented in this encounter"
--- OUTSIDE RECORDS SUMMARY | ~2019-11-17 | XMS | Encounter Summary ---
Demographics + + + | Address | [address] | | | [place] [address] | + + + | Home Phone [...] Providers + +------+ + | Care Exchange Clerk Name | Role | Phone | [...] [address] | | | | | | [place], [place] | | | | | | [address] | | | | | | [phone] | | | +--------+--------+ + + + [...]
--- OUTSIDE RECORDS SUMMARY | ~2019-11-17 | XMS | Encounter Summary ---
Demographics + + + | Address | [address] | | | [place] [address] | + + + | Home Phone [...] Providers + +------+ + | Care Cleaning Handyman Name | Role | Phone | + +------+ + | Petron[place] Thapa | PCP | | | MD | | | + +------+ + Encounter Details +--------+ + + + + | Date | Type | Department | Care Team | Description | +--------+ + + + + | 09/06/ | Abstract | [facility] | Provider, | | | 2018 | | GASTROENTEROLOGY | MD Colin [address] | | | | | [address] [facility] | Sulma Boyd | | | | | [address] [place] | [place] [address] | | | | | [address] | | | | | | [phone] | | | +--------+ + + + [...] | | | | | [place] [address] | | | | | | [phone] | | | | | | | | +--------+---------+ + + + | 12/20/ | Office | Otolaryngology | Ulysses Genao MD | | | 2019 | Visit | | [address] | | | | | | [address] [place], | | | | | | [place] [address] | | | | | | [phone] | | | | | | | | +--------+---------+ + + + | 02/15/ | Office | Internal Medicine | Alanis, | | | 2019 | Visit | | MD Petrona | | | | | | [address] [place] | | | | | | [place] [address] | | | | | | [phone] | | | | | | | [...]
--- OUTSIDE RECORDS SUMMARY | ~2019-11-17 | XMS | Encounter Summary ---
Demographics + + + | Address | [address] | | | [place] [address] [...] Providers + +------+ + | Care Car Lot Attendant Name | Role | Phone | [...] | | | | | Encounter | [place], [place] | [place] | | | | | for | [address] | [address] | | | | | long-term | | Phone: | | | | | (current) | | [phone] | | | | | use of other | | Fax: | | | | | medications | | [phone] | | | | | LBP (low [...] 08/09/ | Office | [facility] at [facility] | Lukasz Charles, | Major depressive | | 2013 | Visit | [address] | PhD [address] | disorder, recurrent | | | | Mailcode: CH15P | [place], [place] | episode, moderate | | | | [place] for [facility] | [address] | ([facility]) (Primary Dx); | | | | and Healing, | [phone] | LBP (low back pain); | | | | | | Fibromyalgia; | | | | Floor [place], [place] | | Adjustment disorder | | | | [address] | | with anxiety | | | | [phone] | | | +--------+---------+ + + + [...] gives her a lot of motivation. Diagnosis: [place] Vernia I: 1. (296.32) Major depressive disorder, recurrent, moderate. 2. (309.24) Adjustment disorder with anxiety. [place] II: Deferred [place] Vern[place] III: abdominal pain, migraine headache, low back pain, fibromyalgia. [place] IV: low finances [place] Vernia V: GAF 55-60 Plan: return in 1 month. Check mood, pain, activity, stress management. Ask about any ch anges at home, taking care of her own self, sleeping. Continue cognitive/behavioral therapy . Total time spent with patient was approximately 45 minutes. LUKASZ CHARLES PHD [facility] [address] [place] [address] And [facility], [address] [place] [address] documented in this en counter Plan of [...]
--- OUTSIDE RECORDS SUMMARY | ~2019-11-17 | XMS | Encounter Summary ---
Demographics + + + | Address | [address] | | | [place] [address] | + + + | Home Phone [...] Providers + +------+ + | Care Tape Maker Name | Role | Phone | [...] | Pain | Diagnoses | Miracle, | [place], | | | | Management | LBP (low | NIHARIKA Jean | Lukasz Rhodes, PhD | | | | | back pain) | [address] | [address] | | | | | DJD | [address] | Ave | | | | | (degenerativ | [place], [place] | [place] | | | | | e joint | [address] | [address] | | | | | disease) of | | Phone: | | | | | knee Knee | | [phone] | | | | | pain Major | | Fax: | | | | | depressive | | [phone] | | | | | disorder, | [...] 06/21/ | Office | [facility] at [facility] | Lukasz Charles, | Major Depressive | | 2008 | Visit | [address] | PhD [address] | Disorder, Recurrent | | | | Mailcode: CH15P | [place], [place] | Episode, Mild (HCC); | | | | [place] for [facility] | [address] | LBP (Low Back | | | | and Healing, | [phone] | Pain); Migraine | | | | | | Headache | | | | Floor [place], [place] | | | | | | [address] | | | | | | [phone] | | | +--------+---------+ + + + [...] migraine specialist this week. She reported that [employer] has done some sewing and she found [...] benefit as she becomes more active. Diagnosis: Tioga I: 1. (296.31) Major depressive disorder, recurrent, mild. 2. (309.24) Adjustment disorder with anxiety. 3. 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 Tioga II: Deferred Tioga III: abdominal pain, migraine headache, low back pain. Tioga IV: low finances Tioga V: GAF 55-60 Plan: return with next medical follow-up appointment. Check mood, pain, surgical recovery , relaxation, activity, distraction, eating. Ask about headache specialist, physical therap y. Continue cognitive/behavioral therapy. Total time spent with patient was approximately 45 minutes. LUKASZ CHARLES PHD [facility] [address] [facility], [address] [place] [address] documented in this en counter Plan of [...]
--- OUTSIDE RECORDS SUMMARY | ~2019-11-17 | XMS | Encounter Summary ---
Demographics + + + | Address | [address] | | | [place] [address] | + + + | Home Phone [...] Providers + +------+ + | Care Housekeeper Supervisor Name | Role | Phone | [...] | 04/29/ | Telephone | [facility] | Alanis, | Medication Refill | | 2017 | | MEDICINE [address] [place] [address] | MD Petrona | Assistance | | | | [facility] | [address] [place] [address] | | | | | [place] [address] | [place] [address] | | | | | [phone] | [phone] | | | | | | | [...] | | | | | [place] [address] | | | | | | [phone] | | | | | | | | +--------+---------+ + + + | 12/20/ | Office | Otolaryngology | Ulysses Genao MD | | | 2019 | Visit | | [address] | | | | | | [address] [place] | | | | | | [place] [address] | | | | | | [phone] | | | | | | | | +--------+---------+ + + + | 02/15/ | Office | Internal Medicine | Alanis, | | | 2019 | Visit | | MD Petrona | | | | | | [address] | | | | | | [place] [address] | | | | | | [phone] | | | | | | | | +--------+---------+ + + + documented as of this encounter Visit Diagnoses Not on filedocumented in this encounter"
--- OUTSIDE RECORDS SUMMARY | ~2019-11-17 | XMS | Encounter Summary ---
Demographics + + + | Address | [address] | | | [place] [address] | + + + | Home Phone [...] Team Providers + +------+ + | Care Lapper Name | Role | Phone | [...] + + | 02/03/ | Refill | [facility] | Alanis, | Medication Refill | | 2017 | | MEDICINE [address] [place] [address] | MD Petrona | | | | | [facility] | [address] [place] [address] | | | | | [place] [address] | [place] [address] | | | | | [phone] | [phone] | | | | | | | [...] | | | | | [place] [address] | | | | | | [phone] | | | | | | | | +--------+---------+ + + + | 12/20/ | Office | Otolaryngology | Ulysses Genao MD | | | 2019 | Visit | | [address] | | | | | | [address] [place], | | | | | | [place] [address] | | | | | | [phone] | | | | | | | | +--------+---------+ + + + | 02/15/ | Office | Internal Medicine | Alanis, | | | 2019 | Visit | | MD Petrona | | | | | | [address] [place] [address] [place] [address] | | | | | | [place] [address] | | | | | | [phone] | | | | | | | | +--------+---------+ + + + documented as of this encounter Visit Diagnoses Not on filedocumented in this encounter"
--- OUTSIDE RECORDS SUMMARY | ~2019-11-17 | XMS | Encounter Summary ---
Demographics + + + | Address | [address] | | | [place] [address] | + + + | Home Phone [...] Providers + +------+ + | Care Poultry Husbandman Name | Role | Phone | + +------+ + | Pedrito Gutierrez MD | PCP | | + +------+ + Encounter Details +--------+---------+ + + + | Date | Type | Department | Care Team | Description | +--------+---------+ + + + | 11/24/ | Office | Preoperative | [facility], [facility] [address] | Other Specified | | 2007 | Visit | Medicine Clinic at | [facility] [address] | Pre-Operative | | | | [facility] 4th Floor [address] | [place] [address] | Examination; | | | | [address] | | Hemorrhagic Disorder | | | | Mailcode: CH4S | | due to Intrinsic | | | | [facility] | | Circulating | | | | and Healing, | | Anticoagulants | | | | Building [address] [facility] | | | | | | [place], [place] | | | | | | [address] | | | | | | [phone] | | | +--------+---------+ + + + [...] DEPARTMENT OF | [address] | [place] [address] | | | PATHOLOGY | [address] | | | + + + + + | [facility] DEPARTMENT OF | [address] | [place] [address] | | | PATHOLOGY | [address] [...] [facility] DEPARTMENT OF | [address] [facility] | [place] [address] | | | PATHOLOGY | [address] | | | + + + + + | [facility] DEPARTMENT OF | [address] [facility] | [place] [address] | | | PATHOLOGY | [address] [...] DEPARTMENT OF | [address] | [place] [address] | | | PATHOLOGY | [address] | | | + + + + + | [facility] DEPARTMENT OF | [address] | [place] [address] | | | PATHOLOGY | [address] [...] Performed At | + + + | [id number] Estimated GFR > 60 mL/min/1.73 sq m if non- | [facility] | | Gambian [id number] Estimated GFR > 60 mL/min/1.73 sq m if | DEPARTMENT OF | | [place] GFR is estimated using the MDRD equation [...] | + + + + + | [facility] | [address] [facility] | [place] [address] | | | PATHOLOGY | [address] | | | + + + + + | [facility] | [address] [place] [address] | [place] [address] | | | PATHOLOGY | [address] [...] + + | Ordered by an | [facility] DEPT OF | | unspecified provider. Please click on view image for the detailed | CARDIOLOGY | | interpretation from [employer] results. | | |results. | | | | | + + + + + + + + | Performing | Address | City/State/Zipcode | Phone Number | | Organization | | | | + + + + + | [facility] DEPT OF | [address] | [place], [place] | | | CARDIOLOGY | [address] | [address] | | + + + + + | [facility] DEPT OF | [address] | [place], [place] | | | CARDIOLOGY | [address] | [address] | | + + + + + documented in this encounter Visit Diagnoses + + | Diagnosis | + + | Other specified pre-operative examination | + + | Hemorrhagic disorder due to intrinsic circulating anticoagulants | + + documented in this encounter
--- OUTSIDE RECORDS SUMMARY | ~2019-11-17 | XMS | Encounter Summary ---
Demographics + + + | Address | [address] | | | [place] [address] | + + + | Home Phone [...] Providers + +------+ + | Care Regional [employer] Driver Name | Role | Phone | [...] Rd | | | | | | [place], [place] | | | | | | [address] | | | +--------+ + + + [...]
--- OUTSIDE RECORDS SUMMARY | ~2019-11-17 | XMS | Encounter Summary ---
Demographics + + + | Address | [address] | | | [place] [address] | + + + | Home Phone [...] Providers + +------+ + | Care Edge Runner Name | Role | Phone | [...] + | 07/28/ | Telephone | [facility] | Alanis, | Appointment | | 2018 | | MEDICINE [address] [place] [address] | MD Petrona | | | | | [facility] | [address] [place] [address] | | | | | [place] [address] | [place] [address] | | | | | [phone] | [phone] | | | | | | | [...] | | | | | [place] [address] | | | | | | [phone] | | | | | | | | +--------+---------+ + + + | 12/20/ | Office | Otolaryngology | Ulysses Genao MD | | | 2020 | Visit | | [address] | | | | | | [address] [place], | | | | | | [place] [address] | | | | | | [phone] | | | | | | | | +--------+---------+ + + + | 02/15/ | Office | Internal Medicine | Alanis, | | | 2019 | Visit | | MD Petrona | | | | | | [address] | | | | | | [place] [address] | | | | | | [phone] | | | | | | | | +--------+---------+ + + + documented as of this encounter Visit Diagnoses Not on filedocumented in this encounter"
--- OUTSIDE RECORDS SUMMARY | ~2019-11-17 | XMS | Encounter Summary ---
Demographics + + + | Address | [address] | | | [place] [address] | + + + | Home Phone [...] Providers + +------+ + | Care Motor Pool Driver Name | Role | Phone | [...] + + | 08/19/ | Telephone | [facility] | Alanis, | Cold-like Symptoms | | 2018 | | MEDICINE [address] [place] [address] | MD Pertona | | | | | [facility] | [address] [place] [address] | | | | | [place] [address] | [place] [address] | | | | | [phone] | [phone] | | | | | | | [...] | | | | | [place] [address] | | | | | | [phone] | | | | | | | | +--------+---------+ + + + | 12/20/ | Office | Otolaryngology | Ulysses Genao MD | | | 2019 | Visit | | [address] | | | | | | [address] [place] | | | | | | [place] [address] | | | | | | [phone] | | | | | | | | +--------+---------+ + + + | 02/15/ | Office | Internal Medicine | Alanis, | | | 2019 | Visit | | MD Petrona | | | | | | [address] [place] | | | | | | [place] [address] | | | | | | [phone] | | | | | | | | +--------+---------+ + + + documented as of this encounter Visit Diagnoses Not on filedocumented in this encounter"
--- OUTSIDE RECORDS SUMMARY | ~2019-11-17 | XMS | Encounter Summary ---
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 Belinda Meehan is here today for a [...] surgery pending 02/13 12/19. DELFINA MOLINA [facility] Mail code CH 4P [place] [facility] and [address] [address] Ailyn Foster - 01/12/20 07 [...]
--- OUTSIDE RECORDS SUMMARY | ~2019-11-17 | XMS | Encounter Summary ---
Demographics + + + | Address | [address] | | | [place] [address] | + + + | Home Phone [...] Providers + +------+ + | Care Sales Performance Manager Name | Role | Phone | [...] [id number] | | | | | | [place], [place] | | | | | | [address] | | | | | | [phone] | | | +--------+ + + + [...] | uIU/ml | | | | | [facility] [...] | + + + + + | [facility] | [address] | [place] [address] | | | LABORATORY | | | | + + + + + documented in this encounter Visit Diagnoses Not on filedocumented in this encounter"
--- OUTSIDE RECORDS SUMMARY | ~2019-11-17 | XMS | Encounter Summary ---
Demographics + + + | Address | [address] | | | [place] [address] | + + + | Home Phone [...] Providers + +------+ + | Care Data Abstractor Name | Role | Phone | + +------+ + | Sulaiman Carrera MD | PCP | | + +------+ + Encounter Details +--------+ + + + + | Date | Type | Department | Care Team | Description | +--------+ + + + + | 03/19/ | Ancillary | Registration [id number] | | | | 2004 | Registratio | [facility] | | | | | n | Peterson Mailcode: RPB07 | | | | | | [place], [place] | | | | | | [address] | | | | | | [phone] | | | +--------+ + + + [...]
--- OUTSIDE RECORDS SUMMARY | ~2019-11-17 | XMS | Encounter Summary ---
Demographics + + + | Address | [address] | | | [place] [address] | + + + | Home Phone [...] + +------+ + | Care Market Research Associate Name | Role | Phone [...] | 2006 | Visit | [facility] | [address] [place] | (Primary Dx); DJD | | | | for Health and | [place], [place] | (Degenerative Joint | | | | Healing [address] | [address] | Disease) of Left | | | | Ave Mailcode: | [phone] | Knee | | | | [facility] | | | | | | Health and Healing, | | | | | | [facility] | | | | | | [place], [place] | | | | | | [address] | | | | | | [phone] | | | +--------+---------+ + + + [...] note might be different from lesli gomez. 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 She is doing PT as this point. With some benefit. She is concerned because she now has some poppin mahesh dlocking symptoms and wants to know if there si something that smocking machine operator be done w ith a scope to [...] IM ( only in [facility]) made gut pain worse 08/27/06: [...] the MRI. Ramon Ibarra M.D. Sports Medicine [facility] Orthopaedics and Rehabilitation [address] [place], [place] [address] [phone] documented in this encoun ter Plan of [...] | | + +---------+ + + | [facility] DEPARTMENT OF | | | | [...]
--- OUTSIDE RECORDS SUMMARY | ~2019-11-17 | XMS | Encounter Summary ---
Demographics + + + | Address | [address] | | | [place] [address] | + + + | Home Phone [...] Providers + +------+ + | Care Oiler Bander Name | Role | Phone | [...] as of this encounter Progress Notes Interface, Diamond Assorter In - 01/12/2005 10:09 AM PDT [id number] [facility] Date: 12/12/2004 Clinic: Endocrinology PHONE CONTACT NOTE The patient called me today after having surgery last week here at [facility]. Her concern was the development of [...] cushion which I have ordered today through [employer], phone #[phone] and fax #[phone]. Today, the patient will monitor the decubiti closely and will be in touch with myself and her other physician depending on the progress. She also still has [address], which may be removed in one or two weeks when she returns to the Surgery Clinic at [facility]. Beto Meeks M.D. PD / HS [id number] / [id number] / [id number] / [id number] cc: Chris Padgett M.D. documented i n this encounter Plan of Treatment Not on filedocumented as of this encounter Visit Diagnoses Not on filedocumented in this encounter"
--- OUTSIDE RECORDS SUMMARY | ~2019-11-17 | XMS | Encounter Summary ---
Demographics + + + | Address | [address] | | | [place] [address] | + + + | Home Phone [...] Providers + +------+ + | Care Sales Service Supervisor Name | Role | Phone | + +------+ + | Sulaiman Carrera MD | PCP | | + +------+ + Encounter Details +--------+ + + + + | Date | Type | Department | Care Team | Description | +--------+ + + + + | 10/05/ | Ancillary | Registration [id number] | Ramon Ibarra, | | | 2006 | Registratio | [facility] Naeem Mcrae | [address] [facility] | | | | [address] | [address] Mailcode: RPB07 | [place], [place] | | | | | [place], [place] | [address] | | | | | [address] | [phone] | | | | | [phone] | | | +--------+ + + + [...]
--- OUTSIDE RECORDS SUMMARY | ~2019-11-17 | XMS | Encounter Summary ---
Demographics + + + | Address | [address] | | | [place] [address] | + + + | Home Phone [...] Team Providers + +------+ + | Care Cumulative Effects Analyst Name | Role | Phone | [...] OP[address] | | | | | | [place], [place] | | | | | | [address] | | | | | | [phone] | | | +--------+--------+ + + + [...]
--- OUTSIDE RECORDS SUMMARY | ~2019-11-17 | XMS | Encounter Summary ---
Demographics + + + | Address | [address] | | | [place] [address] | + + + | Home Phone [...] Providers + +------+ + | Care Cad Design Engineer Name | Role | Phone [...] Hospitalization | | 2017 | | MEDICINE [address] [place] [address] | MD Petrona | | | | | [facility] | [address] [place] [address] | | | | | [place] [address] | [place] [address] | | | | | [phone] | [phone] | | | | | | | [...] | | | | | [place] [address] | | | | | | [phone] | | | | | | | | +--------+---------+ + + + | 12/20/ | Office | Otolaryngology | Ulysses Genao MD | | | 2019 | Visit | | [address] | | | | | | [address] [place], | | | | | | [place] [address] | | | | | | [phone] | | | | | | | | +--------+---------+ + + + | 02/15/ | Office | Internal Medicine | Alanis, | | | 2019 | Visit | | MD Petrona | | | | | | [address] [place] | | | | | | [place] [address] | | | | | | [phone] | | | | | | | | +--------+---------+ + + + documented as of this encounter Visit Diagnoses Not on filedocumented in this encounter"
--- OUTSIDE RECORDS SUMMARY | ~2019-11-17 | XMS | Encounter Summary ---
Demographics + + + | Address | [address] | | | [place] [address] | + + + | Home Phone [...] Providers + +------+ + | Care Electronic Parts Designer Name | Role | Phone | [...] | | | [address] | [place] [address] | | | | | | [place], | Phone: | | | | | | [place] | [phone] | | | | | | [address] | Fax: | | | | | | Phone: | [phone] | | | | | | [phone] | | | | | | | Fax: | | | | | | | [phone] | | +--------+ + + + + + Encounter Details +--------+---------+ + + + | Date | Type | Department | Care Team | Description | +--------+---------+ + + + | 12/30/ | Office | [facility] | Ulysses Genao MD | Benign paroxysmal | | 2018 | Visit | OTOLARYNGOLOGY [address] | [address] | positional vertigo, | | | | [address] | [address] [place], | unspecified | | | | [place], [place] | [place] [address] | laterality (Primary | | | | [address] | [phone] | Dx); Dysfunction of | | | | [phone] | | left eustachian tube | +--------+---------+ [...] negative nichole ft to it. Her speech switcher threshold is 20 dB in the right [...] | | | | | [place] [address] | | | | | | [phone] | | | | | | | | +--------+---------+ + + + | 12/20/ | Office | Otolaryngology | Ulysses Genao MD | | | 2019 | Visit | | [address] | | | | | | [address] [place], | | | | | | [place] [address] | | | | | | [phone] | | | | | | | | +--------+---------+ + + + | 02/15/ | Office | Internal Medicine | Alanis, | | | 2019 | Visit | | MD Petrona | | | | | | [address] [place] | | | | | | [place] [address] | | | | | | [phone] | | | | | | | [...]
--- OUTSIDE RECORDS SUMMARY | ~2019-11-17 | XMS | Encounter Summary ---
Demographics + + + | Address | [address] | | | [place] [address] | + + + | Home Phone [...] + +------+ + | Care Residential Roofer Helper Name | Role | Phone | [...] | Pain | Diagnoses | Miracle, | Cecil, | | | | Management | LBP (low | NIHARIKA Jean | Lukasz Rhodes, PhD | | | | | back pain) | [address] | [address] | | | | | DJD | [address] | Ave | | | | | (degenerativ | [place], [place] | [place] | | | | | e joint | [address] | [address] | | | | | disease) of | | Phone: | | | | | knee Knee | | [phone] | | | | | pain Major | | Fax: | | | | | depressive | | [phone] | | | | | disorder, | [...] 04/13/ | Office | [facility] | Lukasz Charles, | Major Depressive | | 2007 | Visit | [address] | PhD [address] | Disorder, Recurrent | | | | Mailcode: 15P | [place], [place] | Episode, Mild (HCC); | | | | [place] [facility] | [address] | LBP (Low Back | | | | and Healing, | [phone] | Pain); Migraine | | | | | | Headache; Adjustment | | | | Floor [place], [place] | | Disorder with | | | | [address] | | Anxiety | | | | [phone] | | | +--------+---------+ + + + [...] for her surgical recovery period. Diagnosis: [place] I: 1. (296.31) Major depressive disorder, recurrent, mild. 2. (309.24) Adjustment disorder with anxiety. 3. 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 [place] II: Deferred [place] III: abdominal pain, migraine headache, low back pain. [place] IV: low finances [place] V: GAF 55-60 Plan: return with next medical follow-up appointment. Check mood, pain, relaxation, activ ity, distraction, eating. Ask about headaches, fainting, surgery. Continue cognitive/behav ioral therapy. Total time spent with patient was approximately 45 minutes. LUKASZ CHARLES PHD [facility] [address] [facility] [address] [address] documented in this encount er Plan of Treatment + + +--------+ + + | Name | Type | Priori | Associated Diagnoses | Order Schedule | | | | ty | | | + + +--------+ + + | MD PSYCHOTHERPY, | Procedures | Routin | Major Depressive | Ordered: 04/13/2008 | | OFFICE (47-23) | | e | Disorder, Recurrent | [...]
--- OUTSIDE RECORDS SUMMARY | ~2019-11-17 | XMS | Encounter Summary ---
[...] Providers + +------+ + | Care Microwave Engineer Name | Role | Phone | [...] | phalanx of | [address] | [address] | | | | | left great | [place], | Phone: | | | | | toe, initial | [place] | [phone] | | | | | encounter | [address] | Fax: | | | | | | Phone: | [phone] | | | | | | [phone] | | | | | | | Fax: | | | | | | | [phone] | | +--------+ + + + + [...] phalanx of left | | | | [place] [address] | [place] [address] | great toe, initial | | | | [phone] | [phone] | encounter (Primary | | | | [...] | | | | | [place] [address] | | | | | | [phone] | | | | | | | | +--------+---------+ + + + | 12/20/ | Office | Otolaryngology | Ulysses Genao MD | | | 2019 | Visit | | [address] | | | | | | [address] [place], | | | | | | [place] [address] | | | | | | [phone] | | | | | | | | +--------+---------+ + + + | 02/15/ | Office | Internal Medicine | Alanis, | | | 2020 | Visit | | MD Petrona | | | | | | [address] | | | | | | [place] [address] | | | | | | [phone] | | | | | | | [...]
--- OUTSIDE RECORDS SUMMARY | ~2019-11-17 | XMS | Encounter Summary ---
Demographics + + + | Address | [address] | | | [place] [address] | + + + | Home Phone [...] Providers + +------+ + | Care Hand Shoes Sewer Name | Role | Phone | [...] + + | 06/25/ | Refill | [facility] | Alanis, | Medication Refill | | 2018 | | MEDICINE [address] [place] [address] | MD Petrona | | | | | [facility] | [address] [place] [address] | | | | | [place] [address] | [place] [address] | | | | | [phone] | [phone] | | | | | | | [...] | | | | | [place] [address] | | | | | | [phone] | | | | | | | | +--------+---------+ + + + | 12/20/ | Office | Otolaryngology | Ulysses Genao MD | | | 2019 | Visit | | [address] | | | | | | [address] [place], | | | | | | [place] [address] | | | | | | [phone] | | | | | | | | +--------+---------+ + + + | 02/15/ | Office | Internal Medicine | Alanis, | | | 2019 | Visit | | MD Petrona | | | | | | [address] [place] [address] [address] | | | | | | [place] [address] | | | | | | [phone] | | | | | | | | +--------+---------+ + + + documented as of this encounter Visit Diagnoses Not on filedocumented in this encounter"
--- OUTSIDE RECORDS SUMMARY | ~2019-11-17 | XMS | Clinical Summary ---
Demographics + + + | Address | [address] | | | [place] [address] | + + + | Home Phone [...] + +------+ + | Care Cutting And Creasing Press Operator Name | Role | Phone [...] + + + + + + | Mebsxygrhz-Waej-Wumr | Rash | Low | | duplicate | | eine | | | | | + + + + + + | Hfitioqher-Cgqq-Fmsf | Hives, Rash | Low | 03/25/20 | | | eine | | | 17 | | + + + + + + | Tseqkievsr-Xhc-Eynt- | Other (See Comments) | Medium | [...] | 19 | | | | : shelter | Decreased | | | | | [...] | 06/0 | | Activ | | diphenoxylate-atropi | mouth 6 times daily. | tablet | | 2/20 | | e | | ne (LOMOTIL) | | | | 20 | | | | 2.5-0.025 mg per [...] | 180 | 2 | 12/0 | 06/0 | Disco | | diphenoxylate-atropi | mouth 6 times daily. | tablet | | 2/20 | 2/20 | ntinu | | ne (LOMOTIL) | | | | 19 | 20 | ed | | 2.5-0.025 mg per | | [...] | 180 | 2 | 12/3 | 06/0 | Disco | | 80 mg tablet | mouth twice a day | tablet | | 1/20 | 4/20 | ntinu | | | | | | 19 | 20 | ed | | | | | | | | (Reor | | | | | | | | crista) | + + + +---------+------+------+-------+ | sucralfate | take 1 tablet by | 120 | 1 | 04/0 | 06/0 | Disco | | (CARAFATE) 1 g | mouth four times a | tablet | | 03/04 | 20 | ntinu | | tablet | day if needed | | | 20 | 20 | ed | | | | | | | | (Ther | | | | | | | | apy [...] 11/16/ | Refill | Internal Medicine | Emmy-Tajti, | Medication Refill | | 2020 | [...] Medicine | Alanis, | Situational | | 2019 | Visit | | [...] Results, Imaging | | 2019 | | | MD Petrona | | +--------+ + + + + | 10/16/ | Telephone | Internal Medicine | Alanis, | Referral (Follow up) | | 2019 | | | MD Petrona | | +--------+ + + + + | 10/16/ | Telephone | Internal Medicine | Alanis, | Illness | | 2019 | | | MD [...] Medication Refill | | 2019 | | Anika Russ MD | | +--------+ + + + + [...] Medication Refill | | 2019 | | Anika Russ MD | | +--------+ + + + + | 09/04/ | Telephone | Internal Medicine | Alanis, | Appointment Question | 2019 | | | MD Petrona | | +--------+ + + + + | 08/17/ | Telephone | Internal Medicine | Alanis, | Other | | 2019 | | | MD Petrona | | +--------+ + + + + | 08/16/ | Refill | Internal Medicine | Alanis, | Medication Refill | 2019 | | | MD Petrona [...] | 02/13/2013, 02/02/2012, 02/03/2011 | | | DULEnid PSKT | | | + + + [...] 12/20/ | Office | Audiology | Jeimy ElisabetMS | | | 2019 | Visit | | [facility] [address] | | | | [address] [place] | | | | | | [place] [address] | | | | | | [phone] | | | | | | | | +--------+---------+ + + + | 12/20/ | Office | Otolaryngology | Ulysses Genao MD | | | 2019 | Visit | | [address] | | | | | | [address] [place], | | | | | | [place] [address] | | | | | | [phone] | | | | | | | | +--------+---------+ + + + | 02/15/ | Office | Internal Medicine | Alanis, | | | 2019 | Visit | | MD Petrona | | | | | | [address] [place] | | | | | | [place] [address] | | | | | | [phone] | | | | | | | [...] Cervical Cancer | | | Postponed from | | Screening (Pap) | 1 | | 1989 (Plan in | | | | | Place) | + + + + + | Statin Therapy | | | Postponed from | | (optimal intensity) | 1 | | 02/27/2015 (Plan in | | | | | Place) | + + + + + | Vaccine: Zoster (2 | | 02/18/2012 | Postponed from | | of 3) | 1 | | 04/14/2012 (Plan in | | | | | Place) | + + + + + | [...] + + from Last 3 Months Results XR Toe Left 2 + Vw [...] +--------+ +---------+--------+ | MEDICARE | MEDICA | [id number] | 07/16/19 | [phone] | | Medica | | | RE | | 03-Pre | 5 | | re | | | PART A | | sent | | | | | | AND B | | | | | | + +--------+ +--------+ +---------+--------+ | [employer] | MODA | [id number] | 06/16/19 | [phone] | | Medica | | MEDICAID HMO [...] SW | | | al/Fam | | 1960 | [id number] | [place] [address] | | | bijan | | | 0 (Home) | | + +--------+ +--------+ + + Advance Directives + + + + + | Type | Date Recorded | Patient | Explanation | | | | Longshore Equipment Operator | | + + + + + | Power of | | | | | Web Development Instructor | | | | + + + + + | Advance | 10/14/2018 10:09 | | | | Directive | AM | | | + + + + +
--- OUTSIDE RECORDS SUMMARY | ~2019-11-17 | XMS | Encounter Summary ---
Demographics + + + | Address | [address] | | | [place] [address] | + + + | Home Phone [...] Providers + +------+ + | Care Risk Lead Name | Role | Phone [...] | | CONSULT TO | Rd | [address] | | | | | NEUROLOGY | [place], [place] | for Health | | | | | | [address] | and Healing, | | | | | | Phone: | [address], | | | | | | [phone] | [facility] Floor | | | | | | | [place], [place] | | | | | | | [address] | | | | | | | Phone: | | | | | | | [phone] | | | | | | | Fax: | | | | | | | [phone] | +--------+--------+ + + + + Reason [...] | | | [facility] | [place], [place] | Weak; | | | | [address] | [address] | Migraine Headache | | | | [address] | [phone] | | | | | [facility] | | | | | | Physician's | | | | | | Pavilion [place], | | | | | | [place] [address] | | | | | | [phone] | | | +--------+---------+ + + + [...] (ciprofloxacin) Tramadol Morphine IM ( only in [facility]) made gut pain worse 08/27/06: Trial of oral MSIR caused leg swelling Clarithromycin Hives Mainly in the legs Current outpatient prescriptions : aspirin chewable (BABY ASPIRIN) 81 mg Oral Tablet, Chewa ble, 2 daily, Disp: , Rfl: buPROPion XL (WELLBUTRIN XL) 300 mg Oral Tablet Sustained Release 24 hr, take 1 tablet (300 mg) by oral route once daily, Disp: , Rfl: kjednoxbsq-rfkdfbdnxfmll-kloigywb (FIORICET) 50-325-40 mg Oral Tablet, take 2 [...] LE edema Results for BELINDA MEEHAN Molly (ID#[id number]) as of 03/01/2008 9:22:28 PM Ref. Range [...] K/cu mm 220 Results for BELINDA MEEHAN (ID#[id number]) as of 03/01/2008 9:22:28 PM Ref. Range [...] continue to discuss with her options at [facility] with, hopefully, coordin ation of services. RTC [...] | [facility] | [facility] | [place] [address] | | | PATHOLOGY | [address] | | | + + + + + | [place] DEPARTMENT OF | [address] | [place] [address] | | | PATHOLOGY | [address] [...] Performed At | + + + | [id number] Estimated GFR > 60 mL/min/1.73 sq m if non- | [facility] | | [place] [address] Estimated GFR > 60 mL/min/1.73 sq m if | DEPARTMENT OF | | [place] GFR is estimated using the MDRD equation [...] [facility] | [address] [facility] | [place] [address] | | | PATHOLOGY | [address] | | | + + + + + | [facility] | [address] [facility] | [place] [address] | | | PATHOLOGY | [address] [...] change effective | | | 04/05/07 [facility] ([facility]) | | | [facility] [address] [place] [facility] | | | [place] [address] | | + + + + + + + + | Performing | Address | City/State/Zipcode | Phone Number | | Organization | | | | + + + + + | [facility] | [address] | [place] [address] | | | LABORATORY | | | [...] change effective | | | 04/05/07 [facility] ([facility]) | | | [facility] [place] [address] [place] [facility] | | | [place] [address] | | + + + + + + + + | Performing | Address | City/State/Zipcode | Phone Number | | Organization | | | | + + + + + | [facility] | [address] | [place] [address] | | | LABORATORY | | | [...]
--- OUTSIDE RECORDS SUMMARY | ~2019-11-17 | XMS | Encounter Summary ---
Demographics + + + | Address | [address] | | | [place] [address] [...] Providers + +------+ + | Care Collision Technician Name | Role | Phone | [...] + + | 07/01/ | Telephone | [facility] | Alanis, | Foot Pain | | 2018 | | MEDICINE [address] [place] [address] | MD Petrona | | | | | [facility] | [address] [place] [address] | | | | | [place] [address] | [place] [address] | | | | | [phone] | [phone] | | | | | | | [...] | | | | | [place] [address] | | | | | | [phone] | | | | | | | | +--------+---------+ + + + | 12/20/ | Office | Otolaryngology | Ulysses Gneao MD | | | 2020 | Visit | | [address] | | | | | | [address] [place], | | | | | | [place] [address] | | | | | | [phone] | | | | | | | | +--------+---------+ + + + | 02/15/ | Office | Internal Medicine | Alanis, | | | 2019 | Visit | | MD Petrona | | | | | | [address] | | | | | | [place] [address] | | | | | | [phone] | | | | | | | | +--------+---------+ + + + documented as of this encounter Visit Diagnoses Not on filedocumented in this encounter"
--- OUTSIDE RECORDS SUMMARY | ~2019-11-17 | XMS | Encounter Summary ---
Demographics + + + | Address | [address] | | | [place] [address] | + + + | Home Phone [...] Providers + +------+ + | Care Color Paste Mixer Name | Role | Phone | [...] as of this encounter Progress Notes Interface, Blueberry Grower In - 01/12/2005 12:26 AM PDT [id number] [facility] Date: 07/25/2004 Clinic: Rheumatology [...] weight that she has lost. At the [employer], a study was presented [...] 6 months. Caitlin Rivera M.S., F.N.P. / [id number] / [id number] / [id number] / [id number] cc: Pedrito Gutierrez M.D. [address] [place] [facility] [place] [address] Electronically signed by Caitlin Rivera 07-31-2004 12:02:37 PM documented i n this encounter Plan of Treatment Not on filedocumented as of this encounter Visit Diagnoses Not on filedocumented in this encounter"
--- OUTSIDE RECORDS SUMMARY | ~2019-11-17 | XMS | Encounter Summary ---
Demographics + + + | Address | [address] | | | [place] [address] | + + + | Home Phone [...] Team Providers + +------+ + | Care Trade Promotion Analyst Name | Role | Phone | [...] + + | 05/25/ | Refill | [facility] | Alanis, | Medication Refill | | 2016 | | MEDICINE [address] [place] [address] | MD Petrona | | | | | [facility] | [address] [place] [address] | | | | | [place] [address] | [place] [address] | | | | | [phone] | [phone] | | | | | | | [...] | | | | | [place] [address] | | | | | | [phone] | | | | | | | | +--------+---------+ + + + | 12/20/ | Office | Otolaryngology | Ulysses Genao MD | | | 2019 | Visit | | [address] | | | | | | [address] [place], | | | | | | [place] [address] | | | | | | [phone] | | | | | | | | +--------+---------+ + + + | 02/15/ | Office | Internal Medicine | Alanis, | | | 2019 | Visit | | MD Petrona | | | | | | [address] [place] [address] [address] | | | | | | [place] [address] | | | | | | [phone] | | | | | | | | +--------+---------+ + + + documented as of this encounter Visit Diagnoses Not on filedocumented in this encounter"
--- OUTSIDE RECORDS SUMMARY | ~2019-11-17 | XMS | Encounter Summary ---
Demographics + + + | Address | [address] | | | [place] [address] | + + + | Home Phone [...] Providers + +------+ + | Care Simulation Engineer Name | Role | Phone | [...] + + | 06/13/ | Refill | [facility] | Alanis, | Medication Refill; | | 2018 | | MEDICINE [address] [place] [address] | MD Petrona | Medication Refill | | | | [facility] | [address] [place] [address] | | | | | [place] [address] | [place] [address] | | | | | [phone] | [phone] | | | | | | | [...] | | | | | [place] [address] | | | | | | [phone] | | | | | | | | +--------+---------+ + + + | 12/20/ | Office | Otolaryngology | Ulysses Genao MD | | | 2019 | Visit | | [address] [place] | | | | | | [address] [place] | | | | | | [place] [address] | | | | | | [phone] | | | | | | | | +--------+---------+ + + + | 02/15/ | Office | Internal Medicine | Alanis, | | | 2019 | Visit | | MD Petrona | | | | | | [address] [place] | | | | | | [place] [address] | | | | | | [phone] | | | | | | | | +--------+---------+ + + + documented as of this encounter Visit Diagnoses Not on filedocumented in this encounter"
--- OUTSIDE RECORDS SUMMARY | ~2019-11-17 | XMS | Encounter Summary ---
Demographics + + + | Address | [address] | | | [place] [address] | + + + | Home Phone [...] Providers + +------+ + | Care Instrument Lens Grinder Apprentice Name | Role | Phone | [...] + + | 06/21/ | Office | [facility] | Delfina Molina, | LBP (Low Back Pain) | | 2008 | Visit | Pain Center at | ANP | (Primary Dx); Spinal | | | | [facility] | | Fusion Lumbar spine | | | | [address] | | ; Hx Arthroplasty | | | | Mailcode: CH15P | | of both Knees; | | | | Center for [facility] | | Fibromyalgia | | | | and Healing, | | syndrome 729.1; | | | | | | Abdominal Pain, | | | | Floor [place], [place] | | dumping syndrome Hx | | | | [address] | | of gastric bypass; | | | | [phone] | | Dumping Syndrome; | | | [...] removal on 05/15/2008 Dr. Betty Thomas MD [facility], after having problems with nu mbness, [...] a migraine sp ecialist this week in [place], Dr Lucio Nichols. Next area of chronic [...] drawing has be completed, which I reviewed. [facility] Brief Pain Inventory: (ten= worst possible [...] 3. Mental Health care: Dr Ogden psychology [facility] last visit today . [...] 300 mg) by oral route once daily toeunnidlt-uxvavusecifmw-vnmawgmr (FIORICET) 50-325-40 mg Oral Tablet take 2 [...] 278 01/18 Paniculectomy Hx lumbar fusion 05/2008 L1-W7socusc with bone spur removals Family History Problem [...] psychologist when ever sh e comes to [place] for medical care. She has a strong [...] any concerns or questions. DELFINA MOLINA [facility] Mail code CH 4P [facility] [address] [facility] [address] Ty Mendez - 12/2008 9:11 AM PSTCMA History: PMH/PSH/SH/FH review Patient had lumbar fusion in May 22. She also reports tooth abcess. She has script for an tibiotic tx waiting for her in [place]. 1. Has your pain changed from your [...]
--- OUTSIDE RECORDS SUMMARY | ~2019-11-17 | XMS | Encounter Summary ---
Demographics + + + | Address | [address] | | | [place] [address] | + + + | Home Phone [...] Providers + +------+ + | Care Legal Mediator Name | Role | Phone | [...] + | 03/14/ | Refill | [facility] | Alanis, | Medication Refill | | 2018 | | MEDICINE [address] [place] [address] | MD Petrona | | | | | [facility] | [address] [place] [address] | | | | | [place] [address] | [place] [address] | | | | | [phone] | [phone] | | | | | | | [...] | | | | | [place] [address] | | | | | | [phone] | | | | | | | | +--------+---------+ + + + | 12/20/ | Office | Otolaryngology | Ulysses Genao MD | | | 2019 | Visit | | [address] | | | | | | [address] [place], | | | | | | [place] [address] | | | | | | [phone] | | | | | | | | +--------+---------+ + + + | 02/15/ | Office | Internal Medicine | Alanis, | | | 2019 | Visit | | MD Petrona | | | | | | [address] [place] [address] [address] | | | | | | [place] [address] | | | | | | [phone] | | | | | | | | +--------+---------+ + + + documented as of this encounter Visit Diagnoses Not on filedocumented in this encounter"
--- OUTSIDE RECORDS SUMMARY | ~2019-11-17 | XMS | Encounter Summary ---
Demographics + + + | Address | [address] | | | [place] [address] | + + + | Home Phone [...] Providers + +------+ + | Care Certified Prosthetist/Orthotist Name | Role | Phone | + [...] [facility] | Alanis, | Medication Problem | | 2016 | | MEDICINE [address] [place] [address] | MD Petrona | | | | | [facility] | [address] [place] [address] | | | | | [place] [address] | [place] [address] | | | | | [phone] | [phone] | | | | | | | [...] | | | | | [place] [address] | | | | | | [phone] | | | | | | | | +--------+---------+ + + + | 12/20/ | Office | Otolaryngology | Ulysses Genao MD | | | 2019 | Visit | | [address] | | | | | | [address] [place], | | | | | | [place] [address] | | | | | | [phone] | | | | | | | | +--------+---------+ + + + | 02/15/ | Office | Internal Medicine | Alanis, | | | 2019 | Visit | | MD Petrona | | | | | | [address] [place] | | | | | | [place] [address] | | | | | | [phone] | | | | | | | | +--------+---------+ + + + documented as of this encounter Visit Diagnoses Not on filedocumented in this encounter"
--- OUTSIDE RECORDS SUMMARY | ~2019-11-17 | XMS | Clinical Summary ---
Demographics + + + | Address | [address] | | | [place] [address] | + + + | Home Phone [...] Providers + +------+ + | Care Tele Grout Sewer Line Repairer Name | Role | Phone | [...] + + + + + + | Hkyrkxazpb-Rwfg-Xbjv | Rash | Low | | duplicate | | eine | | | | | + + + + + + | Codhefwowp-Tfxt-Liex | Hives, Rash | Low | 03/25/20 | | | eine | | | 17 | | + + + + + + | Dpdwylanaz-Dyq-Plnb- | Other (See Comments) | Medium | [...] | 19 | | | | : [facility] | Decreased | | | | | [...] | | | | | [place] [address] | | | | | | [phone] | | | | | | | | +--------+---------+ + + + | 12/20/ | Office | Otolaryngology | Ulysses Genao MD | | | 2019 | Visit | | [address] | | | | | | [address] [place], | | | | | | [place] [address] | | | | | | [phone] | | | | | | | | +--------+---------+ + + + | 02/15/ | Office | Internal Medicine | Alanis, | | | 2019 | Visit | | MD Petrona | | | | | | [address] [place] | | | | | | [place] [address] | | | | | | [phone] | | | | | | | [...] +--------+ +---------+--------+ | MEDICARE | MEDICA | [id number] | 07/16/19 | [phone] | | Medica | | | RE | | 03-Pre | 5 | | re | | | PART A | | sent | | | | | | AND B | | | | | | + +--------+ +--------+ +---------+--------+ | [employer] | MODA | [id number] | 06/16/19 | [phone] | | Medica | | MEDICAID HMO [...] | 1960 | [id number] | [place] [address] | | | bijan | | | 0 (Home) | | + +--------+ +--------+ + + Advance Directives + + + + + | Type | Date Recorded | Patient | Explanation | | | | Barber Shop Operator | | + + + + + | Power of | | | | | Pattern Assembler | | | | + + + + + | Advance | 10/14/2018 10:09 | | | | Directive | AM | | | + + + + +
--- OUTSIDE RECORDS SUMMARY | ~2019-11-17 | XMS | Encounter Summary ---
Demographics + + + | Address | [address] | | | [place] [address] | + + + | Home Phone [...] Team Providers + +------+ + | Care Harvest Worker Name | Role | Phone [...] Rd | | | | | | [place], [place] | | | | | | [address] | | | +--------+ + + + [...]
--- OUTSIDE RECORDS SUMMARY | ~2019-11-17 | XMS | Encounter Summary ---
Demographics + + + | Address | [address] | | | [place] [address] | + + + | Home Phone [...] Team Providers + +------+ + | Care Riffler Tender Name | Role | Phone | [...] | | | | [place], | [address] | | | | | | [place] | Phone: | | | | | | [address] | [phone] | | | | | | Phone: | Fax: | | | | | | [phone] | [phone] | | | | | | Fax: | | | | | | | [phone] | | +--------+ + + + + + Encounter Details +--------+---------+ + + + | Date | Type | Department | Care Team | Description | +--------+---------+ + + + | 11/16/ | Office | [facility] | Alanis, | Diarrhea, | | 2017 | Visit | GASTROENTEROLOGY | MD Petrona | unspecified type | | | | [address] [place] | [address] [place] | (Primary Dx); | | | | [address] [place], [place] | [place] [address] | Chronic diarrhea; | | | | [address] | [phone] | S/P gastric bypass; | | | | [phone] | | Gastroesophageal | | | | | Luther Brito MD | reflux disease, | | | | | [address] | esophagitis presence | | | | | [place], [place] | not specified; | | | | | [address] | History of gastric | | | | | [phone] | ulcer; Abdominal | | | | | | pain, unspecified | | | | | | abdominal location; | | | | | | Narcotic dependence | | | | | | ([facility]); Obesity (BMI | | | | [...] ordered and patient will complet e at [facility] in [place], orders were faxed; scheduled for egd/colon prop on 12/[address] Brito; advised to hold PPI day of procedure, she agreed. 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 documented in this encounter Plan of Treatment [...] | | | | | [place] [address] | | | | | | [phone] | | | | | | | | +--------+---------+ + + + | 12/20/ | Office | Otolaryngology | Ulysses Genao MD | | | 2019 | Visit | | [address] [place] | | | | | | [address] [place], | | | | | | [place] [address] | | | | | | [phone] | | | | | | | | +--------+---------+ + + + | 02/15/ | Office | Internal Medicine | Alanis, | | | 2019 | Visit | | MD Petrona | | | | | | [address] [place] | | | | | | [place] [address] | | | | | | [phone] | | | | | | | [...]
--- OUTSIDE RECORDS SUMMARY | ~2019-11-17 | XMS | Encounter Summary ---
Demographics + + + | Address | [address] | | | [place] [address] | + + + | Home Phone [...] Team Providers + +------+ + | Care Vertical Mill Operator Name | Role | Phone [...] + | 06/14/ | Refill | [facility] | Alanis, | Medication Refill | | 2018 | | MEDICINE [address] [place] [address] | MD Petrona | | | | | [facility] | [address] [place] [address] | | | | | [place] [address] | [place] [address] | | | | | [phone] | [phone] | | | | | | | [...] | | | | | [place] [address] | | | | | | [phone] | | | | | | | | +--------+---------+ + + + | 12/20/ | Office | Otolaryngology | Ulysses Genao MD | | | 2019 | Visit | | [address] [place] | | | | | | [address] [place], | | | | | | [place] [address] | | | | | | [phone] | | | | | | | | +--------+---------+ + + + | 02/15/ | Office | Internal Medicine | Alanis, | | | 2019 | Visit | | MD Petrona | | | | | | [address] [place] [address] [address] [place] | | | | | | [place] [address] | | | | | | [phone] | | | | | | | | +--------+---------+ + + + documented as of this encounter Visit Diagnoses Not on filedocumented in this encounter"
--- OUTSIDE RECORDS SUMMARY | ~2019-11-17 | XMS | Encounter Summary ---
Demographics + + + | Address | [address] | | | [place] [address] | + + + | Home Phone [...] Team Providers + +------+ + | Care Bpm Analyst Name | Role | Phone | [...] as of this encounter Discharge Summaries Interface, Regional Ehs Manager In - 01/12/2005 6:32 AM PDTAdmission Date: [...] M.D., D.M.D. Chris Padgett M.D. CLAIRE/carolynn A [id number] cc: documente d in this encounter Plan of Treatment Not on filedocumented as of this encounter Visit Diagnoses Not on filedocumented in this encounter"
--- OUTSIDE RECORDS SUMMARY | ~2019-11-17 | XMS | Encounter Summary ---
Demographics + + + | Address | [address] | | | [place] [address] | + + + | Home Phone [...] Providers + +------+ + | Care Senior Games Technician Name | Role | Phone | [...] | | 2006 | | [facility] at [facility] | MD Darrion,PhD [address] | | | | | for Health and | [address] | | | | | Healing [address] | [place], [place] | | | | | Ave Mailcode: | [address] | | | | | CH12A [facility] | [phone] | | | | | Health and Healing, | | | | | | [facility] | | | | | | [place], [place] | | | | | | [address] | | | | | | [phone] | | | +--------+ + + + [...]
--- OUTSIDE RECORDS SUMMARY | ~2019-11-17 | XMS | Encounter Summary ---
Demographics + + + | Address | [address] | | | [place] [address] | + + + | Home Phone [...] Team Providers + +------+ + | Care Seamer Operator Name | Role | Phone | [...] + | 05/18/ | Refill | [facility] | Alanis, | Medication Refill | | 2016 | | MEDICINE [address] [place] [address] | MD Petrona | | | | | [facility] | [address] [place] [address] | | | | | [place] [address] | [place] [address] | | | | | [phone] | [phone] | | | | | | | [...] | | | | | [place] [address] | | | | | | [phone] | | | | | | | | +--------+---------+ + + + | 12/20/ | Office | Otolaryngology | Ulysses Genao MD | | | 2019 | Visit | | [address] [place] | | | | | | [address] [place], | | | | | | [place] [address] | | | | | | [phone] | | | | | | | | +--------+---------+ + + + | 02/15/ | Office | Internal Medicine | Alanis, | | | 2019 | Visit | | MD Petrona | | | | | | [address] [place] [address] [address] | | | | | | [place] [address] | | | | | | [phone] | | | | | | | | +--------+---------+ + + + documented as of this encounter Visit Diagnoses Not on filedocumented in this encounter"
--- OUTSIDE RECORDS SUMMARY | ~2019-11-17 | XMS | Encounter Summary ---
Demographics + + + | Address | [address] | | | [place] [address] | + + + | Home Phone [...] Providers + +------+ + | Care Brake Liner Name | Role | Phone | [...] 2006 | Visit | Rheumatology [address] | (Primary Dx); | | | | [address] | | Fibromyalgia; | | | | Mailcode: OPC5 | | Fibromyalgia | | | | Outpatient Clinic | | | | | | Building [place], | | | | | | [place] [address] | | | | | | [phone] | | | +--------+---------+ + + + [...] discomfort- entire abd around to back. Seeing [facility] pain clinic. Fentanyl patch helped pain [...]
--- OUTSIDE RECORDS SUMMARY | ~2019-11-17 | XMS | Encounter Summary ---
Demographics + + + | Address | [address] | | | [place] [address] | + + + | Home Phone [...] Team Providers + +------+ + | Care Spare Hand Name | Role | Phone | [...] + + | 10/11/ | Telephone | [facility] | Alanis, | LABS | | 2019 | | MEDICINE [address] [place] [address] | MD Petroan | | | | | [facility] | [address] [place] [address] | | | | | [place] [address] | [place] [address] | | | | | [phone] | [phone] | | | | | | | [...] | | | | | [place] [address] | | | | | | [phone] | | | | | | | | +--------+---------+ + + + | 12/20/ | Office | Otolaryngology | Ulysses Genao MD | | | 2019 | Visit | | [address] [place] | | | | | | [address] [place], | | | | | | [place] [address] | | | | | | [phone] | | | | | | | | +--------+---------+ + + + | 02/15/ | Office | Internal Medicine | Neerajflip, | | | 2019 | Visit | | MD Petrona | | | | | | [address] [place] | | | | | | [place] [address] | | | | | | [phone] | | | | | | | | +--------+---------+ + + + documented as of this encounter Visit Diagnoses + + | Diagnosis | + + | Osteoporosis, unspecified osteoporosis type, unspecified pathological fracture | | presence - Primary | + + documented in this encounter"
--- OUTSIDE RECORDS SUMMARY | ~2019-11-17 | XMS | Encounter Summary ---
Demographics + + + | Address | [address] | | | [place] [address] | + + + | Home Phone [...] Providers + +------+ + | Care Automation Tech Name | Role | Phone | [...] | | | | Clinical Nutrition | [place], [place] | | | | | [address] | [address] | | | | | Loop Mailcode: OPC5 | [phone] | | | | | Outpatient Clinic | | | | | | [facility] | | | | | | [place] [address] | | | | | | [phone] | | | +--------+ + + + [...] Blood Test performed by | | | [facility]. | | + + + + + + + + | Performing | Address | City/State/Zipcode | Phone Number | | Organization | | | | + + + + + | [facility] | [address] | [place] [address] | | | LABORATORY | | | [...] + + + | [facility] | [address] | [place] [address] | | | LABORATORY | | | | + + + + + documented in this encounter Visit Diagnoses Not on filedocumented in this encounter"
--- OUTSIDE RECORDS SUMMARY | ~2019-11-17 | XMS | Encounter Summary ---
Demographics + + + | Address | [address] | | | [place] [address] | + + + | Home Phone [...] | | | | | | [place], [place] | | | | | | | [address] | | | | | | | Phone: | | | | | | | [phone] | | | | | | | Fax: | | | | | | | [phone] | +--------+--------+ + + + + Encounter [...] Physicians | [place], [place] | Metabolic syndrome | | | | [address] | [address] | X 250.80; Essential | | | | [address] | [phone] | hypertension 401.9; | | | | [facility] | | Fibromyalgia | | | | Physician's | | syndrome 729.1 | | | | Pavilion [place], | | | | | | [place] [address] | | | | | | [phone] | | | +--------+---------+ + + + [...] by oral route once daily at bedti ca as needed Oxycodone HCl (OXYCONTIN) 40 mg [...]
--- OUTSIDE RECORDS SUMMARY | ~2019-11-17 | XMS | Encounter Summary ---
Demographics + + + | Address | [address] | | | [place] [address] | + + + | Home Phone [...] Providers + +------+ + | Care Stone And Plate Preparer Apprentice Name | Role | Phone | [...] as of this encounter Progress Notes Interface, Double Needle Operator In - 01/11/2005 8:56 PM PDTClinic Date: [...] bypass surgery and will be admitted to [facility] for this procedure on November 22, 2003. [...] Ester Romero M.D. Issac Meeks M.D. / [id number] / [id number] / [id number] / [id number] Tdocumented in this encounter Plan of Treatment Not on filedocumented as of this encounter Visit Diagnoses Not on filedocumented in this encounter"
--- OUTSIDE RECORDS SUMMARY | ~2019-11-17 | XMS | Encounter Summary ---
[...] + +------+ + | Care Cutting And Printing Machine Operator Name | Role | [...] + + | 08/20/ | Telephone | [facility] | Alanis, | Other | | 2018 | | MEDICINE [address] [place] [address] | MD Petrona | | | | | [facility] | [address] [place] [address] | | | | | [place] [address] | [place] [address] | | | | | [phone] | [phone] | | | | | | | [...] | | | | | [place] [address] | | | | | | [phone] | | | | | | | | +--------+---------+ + + + | 12/20/ | Office | Otolaryngology | Ulysses Genao MD | | | 2019 | Visit | | [address] | | | | | | [address] [place], | | | | | | [place] [address] | | | | | | [phone] | | | | | | | | +--------+---------+ + + + | 02/15/ | Office | Internal Medicine | Alanis, | | | 2019 | Visit | | MD Petrona | | | | | | [address] | | | | | | [place] [address] | | | | | | [phone] | | | | | | | | +--------+---------+ + + + documented as of this encounter Visit Diagnoses Not on filedocumented in this encounter"
--- OUTSIDE RECORDS SUMMARY | ~2019-11-17 | XMS | Encounter Summary ---
Demographics + + + | Address | [address] | | | [place] [address] | + + + | Home Phone [...] Team Providers + +------+ + | Care Hydrostatic Tubing Tester Name | Role | Phone | [...] + + | 03/25/ | Refill | [facility] | Alanis, | Medication Refill | | 2016 | | MEDICINE [address] [place] [address] | MD Petrona | | | | | [facility] | [address] [place] [address] | | | | | [place] [address] | [place] [address] | | | | | [phone] | [phone] | | | | | | | [...] | | | | | [place] [address] | | | | | | [phone] | | | | | | | | +--------+---------+ + + + | 12/20/ | Office | Otolaryngology | Ulysses Genao MD | | | 2019 | Visit | | [address] | | | | | | [address] [place], | | | | | | [place] [address] | | | | | | [phone] | | | | | | | | +--------+---------+ + + + | 02/15/ | Office | Internal Medicine | Alanis, | | | 2019 | Visit | | MD Petrona | | | | | | [address] [place] [address] [address] | | | | | | [place] [address] | | | | | | [phone] | | | | | | | | +--------+---------+ + + + documented as of this encounter Visit Diagnoses Not on filedocumented in this encounter"
--- OUTSIDE RECORDS SUMMARY | ~2019-11-17 | XMS | Encounter Summary ---
Demographics + + + | Address | [address] | | | [place] [address] | + + + | Home Phone [...] Team Providers + +------+ + | Care Retread Supervisor Name | Role | Phone | + +------+ + | Pedrito Gutierrze MD | PCP | | + +------+ [...] Refill Request | | 2008 | | [place] [address] | [address] | (Sucralfate) | | | | [place] Mailcode: CH4S | [facility] | | | | | [facility] | [place], [place] | | | | | and [place], | [address] | | | | | [facility] | [phone] | | | | | Floor [place], [place] | | | | | | [address] | | | | | | [phone] | | | +--------+--------+ + + + [...]
--- OUTSIDE RECORDS SUMMARY | ~2019-11-17 | XMS | Encounter Summary ---
Demographics + + + | Address | [address] | | | [place] [address] | + + + | Home Phone [...] Providers + +------+ + | Care Brush Clearing Laborer Name | Role | Phone | [...] | | | | | | [place], | | | | | | | [place] | | | | | | | [address] | | | | | | | Phone: | | | | | | | [phone] | | | | | | | Fax: | | | | | | | [phone] | +--------+--------+ + + + + Encounter Details +--------+---------+ + + + | Date | Type | Department | Care Team | Description | +--------+---------+ + + + | 07/10/ | Office | Digestive Health | Eliezer Ruano, | Abdominal Pain, | | 2008 | Visit | [place] [address] | [address] | dumping syndrome Hx | | | | Ave Mailcode: CH4S | [address] | of gastric bypass | | | | [facility] | [place], [place] | (Primary Dx) | | | | and Healing, | [address] | | | | | Building | [phone] | | | | | Floor [place], [place] | | | | | | [address] | | | | | | [phone] | | | +--------+---------+ + + + [...] and plan of care. ELIEZER RUANO MD [address] Mailcode: [place] [address] Yuriy Mayo MD - 06/16 [...] 300 mg) by oral route once daily fyzlyvcvxe-ytbktsbkkofls-vrwqgsux (FIORICET) 50-325-40 mg Oral Tablet take 2 [...] 278 01/18 Paniculectomy Hx lumbar fusion 05/2008 L1-J1vbfknb with bone spur removals Review of Systems: [...]
--- OUTSIDE RECORDS SUMMARY | ~2019-11-17 | XMS | Encounter Summary ---
Demographics + + + | Address | [address] | | | [place] [address] | + + + | Home Phone [...] Team Providers + +------+ + | Care Athletic Coach Name | Role | Phone | [...] + | 06/22/ | Office | [facility] | Delfina Molina, | Herniated Lumbar | | 2006 | Visit | Pain Center at | ANP | Intervertebral Disc | | | | [facility] | | L4-5; Spondylosis | | [...] | Dependence, | | | | Floor [place], [place] | | Continuous ([facility]); | | | | [address] | | Major Depressive | | | | [phone] | | Disorder, Recurrent | | | [...] is a 46 y.o. female [facility] [...] the past week of Fentanyl patch and Catawba. Trileptal he lps with right leg pain and sleep. "been sleeping great". Expectations for this visit include : discussing the sticking problems with the fentanyl pa tc and her insurance not being willing prescribe Catawba. There have been no other change in [...] an d her insurance stopped coverage of Catawba. I believe doing pool therapy three times [...] might be d iverting or using her Catawba? Until I know more I will not be prescribing a breakthrough sina n medication but am willing to prescribe early for her fentanyl. I have asked Belinda to product picker and be responsible for her own medication product picker. I discussed with Tasha Nolasco CMA the issue of Insurance PA for Catawba this was in progress as of the time the patient was here. At the time I completed this note we had word that Ins urance would not approve coverage. I will discuss this with Belinda once I know her story o n where the dispensed #70 Catawba is. [ Tasha reported calling [employer] who reported: Belinda's s on picking up [...] with each exchange. 3. Patient instructed to product picker and be responsible for her own medications. 4. Follow up in two weeks to review pain management. Once she is again stable on the fen tanyl patch I will transfer her prescribing to Dr. Gutierrez. She has completed the Multidisci plinary patient Care program here at the [facility]. DELFINA MOLINA [facility] Mail code CH 4P [facility] and [address] [address] Tasha Can - 12/04/2006 7:43 [...] | + + | Opioid dependence, continuous ([facility]) Opioid type dependence, continuous | + + [...]
--- OUTSIDE RECORDS SUMMARY | ~2019-11-17 | XMS | Encounter Summary ---
Demographics + + + | Address | [address] | | | [place] [address] | + + + | Home Phone [...] Team Providers + +------+ + | Care Licsw Name | Role | Phone | + [...] + + | 03/17/ | Telephone | [facility] | Alanis, | TCM - Hosp FU | | 2017 | | MEDICINE [address] [place] [address] | MD Petrona | | | | | [facility] | [address] [place] [address] | | | | | [place] [address] | [place] [address] | | | | | [phone] | [phone] | | | | | | | [...] | | | | | [place] [address] | | | | | | [phone] | | | | | | | | +--------+---------+ + + + | 12/20/ | Office | Otolaryngology | Ulysses Genao MD | | | 2019 | Visit | | [address] [place] | | | | | | [address] [place], | | | | | | [place] [address] | | | | | | [phone] | | | | | | | | +--------+---------+ + + + | 02/15/ | Office | Internal Medicine | Alanis, | | | 2019 | Visit | | MD Petrona | | | | | | [address] [place] | | | | | | [place] [address] | | | | | | [phone] | | | | | | | | +--------+---------+ + + + documented as of this encounter Visit Diagnoses Not on filedocumented in this encounter"
--- OUTSIDE RECORDS SUMMARY | ~2019-11-17 | XMS | Encounter Summary ---
Demographics + + + | Address | [address] | | | [place] [address] | + + + | Home Phone [...] Providers + +------+ + | Care Manager Investigations Name | Role | Phone | + [...] | phalanx of | [address] | [address] | | | | | left great | [place], | Phone: | | | | | toe, initial | [place] | [phone] | | | | | encounter | [address] | Fax: | | | | | | Phone: | [phone] | | | | | | [phone] | | | | | | | Fax: | | | | | | | [phone] | | +--------+ + + + + [...] of left | | | | [place] [address] | [place] [address] | great toe, initial | | | | [phone] | [phone] | encounter (Primary | | | | [...] | | | | | [place] [address] | | | | | | [phone] | | | | | | | | +--------+---------+ + + + | 12/20/ | Office | Otolaryngology | Ulysses Genao MD | | | 2019 | Visit | | [address] [place] | | | | | | [address] [place], | | | | | | [place] [address] | | | | | | [phone] | | | | | | | | +--------+---------+ + + + | 02/15/ | Office | Internal Medicine | Alanis, | | | 2020 | Visit | | MD Petrona | | | | | | [address] | | | | | | [place] [address] | | | | | | [phone] | | | | | | | [...]
--- OUTSIDE RECORDS SUMMARY | ~2019-11-17 | XMS | Encounter Summary ---
Demographics + + + | Address | [address] | | | [place] [address] | + + + | Home Phone [...] Providers + +------+ + | Care Coffee Maker Name | Role | Phone | [...] as of this encounter Progress Notes Interface, Scrap Iron Cutter In - 01/11/2005 6:26 PM PDTClinic Date: [...] bypass surgery. Dwaine Al M.D. LEDY / [id number] / [id number] / [id number] / Tdocumented in this encounter Plan of Treatment Not on filedocumented as of this encounter Visit Diagnoses Not on filedocumented in this encounter"
--- OUTSIDE RECORDS SUMMARY | ~2019-11-17 | XMS | Encounter Summary ---
Demographics + + + | Address | [address] | | | [place] [address] | + + + | Home Phone [...] Providers + +------+ + | Care Molding Supervisor Name | Role | Phone | [...] + + | 06/11/ | Refill | [facility] | Alanis, | Medication Refill | | 2017 | | MEDICINE [address] [place] [address] | MD Petrona | | | | | [facility] | [address] [place] [address] | | | | | [place] [address] | [place] [address] | | | | | [phone] | [phone] | | | | | | | [...] | | | | | [place] [address] | | | | | | [phone] | | | | | | | | +--------+---------+ + + + | 12/20/ | Office | Otolaryngology | Ulysses Genao MD | | | 2019 | Visit | | [address] [place] | | | | | | [address] [place], | | | | | | [place] [address] | | | | | | [phone] | | | | | | | | +--------+---------+ + + + | 02/15/ | Office | Internal Medicine | Alanis, | | | 2019 | Visit | | MD Petrona | | | | | | [address] [place] [address] [place] | | | | | | [place] [address] | | | | | | [phone] | | | | | | | | +--------+---------+ + + + documented as of this encounter Visit Diagnoses Not on filedocumented in this encounter"
--- OUTSIDE RECORDS SUMMARY | ~2019-11-17 | XMS | Encounter Summary ---
Demographics + + + | Address | [address] | | | [place] [address] | + + + | Home Phone [...] Providers + +------+ + | Care Water Attendant Name | Role | Phone | [...] + + | 09/16/ | Telephone | [facility] | Miranda Lambert, | Memory loss [...] | | | | | | Floor [place], [place] | | | | | | [address] | | | | | | [phone] | | | +--------+ + + + [...]
--- OUTSIDE RECORDS SUMMARY | ~2019-11-17 | XMS | Encounter Summary ---
Demographics + + + | Address | [address] | | | [place] [address] | + + + | Home Phone [...] Team Providers + +------+ + | Care Packing Line Operator Name | Role | Phone [...] + + | 09/01/ | Telephone | [facility] | Alanis, | Sinus Pain | | 2019 | | MEDICINE [address] [place] [address] | MD Petrona | | | | | [facility] | [address] [place] [address] | | | | | [place] [address] | [place] [address] | | | | | [phone] | [phone] | | | | | | | [...] | | | | | [place] [address] | | | | | | [phone] | | | | | | | | +--------+---------+ + + + | 12/20/ | Office | Otolaryngology | Ulysses Genao MD | | | 2020 | Visit | | [address] [place] | | | | | | [address] [place], | | | | | | [place] [address] | | | | | | [phone] | | | | | | | | +--------+---------+ + + + | 02/15/ | Office | Internal Medicine | Alanis, | | | 2019 | Visit | | MD Petrona | | | | | | [address] | | | | | | [place] [address] | | | | | | [phone] | | | | | | | | +--------+---------+ + + + documented as of this encounter Visit Diagnoses Not on filedocumented in this encounter"
--- OUTSIDE RECORDS SUMMARY | ~2019-11-17 | XMS | Encounter Summary ---
Demographics + + + | Address | [address] | | | [place] [address] | + + + | Home Phone [...] + +------+ + | Care Dental Appliance Mechanic Name | Role | Phone | [...] + + | 09/06/ | Refill | [facility] | Alanis, | Medication Refill | | 2019 | | MEDICINE [address] | MD Petrona | | | | | [facility] | [address] [place] [address] | | | | | [place] [address] | [place] [address] | | | | | [phone] | [phone] | | | | | | | [...] | | | | | [place] [address] | | | | | | [phone] | | | | | | | | +--------+---------+ + + + | 12/20/ | Office | Otolaryngology | Ulysses Genao MD | | | 2019 | Visit | | [address] [place] | | | | | | [address] [place], | | | | | | [place] [address] | | | | | | [phone] | | | | | | | | +--------+---------+ + + + | 02/15/ | Office | Internal Medicine | Alanis, | | | 2019 | Visit | | MD Petrona | | | | | | [address] [place] [address] [address] | | | | | | [place] [address] | | | | | | [phone] | | | | | | | | +--------+---------+ + + + documented as of this encounter Visit Diagnoses Not on filedocumented in this encounter"
--- OUTSIDE RECORDS SUMMARY | ~2019-11-17 | XMS | Encounter Summary ---
Demographics + + + | Address | [address] | | | [place] [address] | + + + | Home Phone [...] Team Providers + +------+ + | Care Cooling Room Attendant Name | Role | Phone [...] | | | | Clinical Nutrition | [place], [place] | | | | | [address] | [address] | | | | | Loop Mailcode: OPC5 | [phone] | | | | | Outpatient Clinic | | | | | | [facility] | | | | | | [place] [address] | | | | | | [phone] | | | +--------+ + + + [...] [facility] | [address] | [place], [place] | | | [facility] | | [address] | | + + + + + [...] + + + + + | [facility] | [address] | [place] [address] | | | LABORATORY | | | [...] DEPARTMENT OF | [address] | [place] [address] | | | PATHOLOGY | [address] | | | + + + + + | [facility] DEPARTMENT OF | [address] | [place] [address] | | | PATHOLOGY | [address] | | | + + + + + LIPASE (01/11/2002 3:50 PM PDT) + +--------+ + + + | Component | Value | Ref Range | Performed | Pathologist | | | | | At | Signature | + +--------+ + + + | LIPASE | 21 (L) | 22 - 51 U/L | [facility] | | | (LAB) | [...] + + | [facility] | [address] [facility] | [place] [address] | | | PATHOLOGY | [address] | | | + + + + + | [facility] | [facility] | [place] [address] | | | PATHOLOGY | [address] [...] DEPARTMENT OF | [address] | [place] [address] | | | PATHOLOGY | [address] | | | + + + + + | [facility] DEPARTMENT | [address] | [place] [address] | | | PATHOLOGY | [address] [...] [facility] | [address] | [place] [address] | | | PATHOLOGY | [address] | | | + + + + + | [facility] | [facility] | [place] [address] | | | PATHOLOGY | [address] | | | + + + + + documented in this encounter Visit Diagnoses Not on filedocumented in this encounter"
--- OUTSIDE RECORDS SUMMARY | ~2019-11-17 | XMS | Encounter Summary ---
Demographics + + + | Address | [address] | | | [place] [address] | + + + | Home Phone [...] Providers + +------+ + | Care Position Classification Specialist Name | Role | Phone | + +------+ + | Pedrito Gutierrez MD | PCP | | + +------+ + Encounter Details +--------+ + + + + | Date | Type | Department | Care Team | Description | +--------+ + + + + | 07/30/ | Office | [facility] [address] | Clinic, | Progress Note | | 2006 | Visit-Trans | [facility] | Endocrinology | | | | kurt | Sacha | | | | | | [facility], | | | | | | 7th floor | | | | | | [place], [place] | | | | | | [address] | | | | | | [phone] | | | +--------+ + + + [...] of this encounter Progress Notes Interface, Manager Relocation In - 09/16/2006 7:22 AM PDT [id number] GEOVANNI Barnes [id number] Clinic Date: 07/30/2006 Clinic: Endocrinology Subjective: [place] [...] year. Beto Meeks M.D. PD / HS [id number] / [id number] / [id number] / [id number] cc: Joanna Arshad M.D. Jonathan Hitzman, M.D. [address] [facility] [place] [address] Electronically signed by Beto Meeks 09-15-2006 11:40:17 PM documented in this encounter Plan of Treatment Not on filedocumented as of this encounter Visit Diagnoses Not on filedocumented in this encounter"
--- OUTSIDE RECORDS SUMMARY | ~2019-11-17 | XMS | Encounter Summary ---
Demographics + + + | Address | [address] | | | [place] [address] | + + + | Home Phone [...] Providers + +------+ + | Care Marine Water Tender Name | Role | Phone | [...] ANP | | | | | [facility] | | | | | | [address] | | | | | | Mailcode: CH15P | | | | | | [facility] | | | | | | and Healing, | | | | | | Building | | | | | | Floor [place], [place] | | | | | | [address] | | | | | | [phone] | | | +--------+ + + + [...]
--- OUTSIDE RECORDS SUMMARY | ~2019-11-17 | XMS | Encounter Summary ---
Demographics + + + | Address | [address] | | | [place] [address] | + + + | Home Phone [...] Providers + +------+ + | Care Veterinary Medicine Doctor Name | Role | Phone | [...] Lab findings, | | 2006 | | [place] [address] | [address] | teaching, guidance, | | | | Ave Mailcode: CH4S | [address] | and counseling | | | | [facility] | [place], [place] | | | | | and Healing, | [address] | | | | | [facility] | [phone] | | | | | [place], [place] | | | | | | [address] | | | | | | [phone] | | | +--------+ + + + [...]
--- OUTSIDE RECORDS SUMMARY | ~2019-11-17 | XMS | Encounter Summary ---
Demographics + + + | Address | [address] | | | [place] [address] | + + + | Home Phone [...] Providers + +------+ + | Care Blade Groover Name | Role | Phone | [...] | at [place] | [facility] | | | | | [address] | [place] [address] | | | | | [address] | | | | | | [place], 2nd floor | | | | | | [place], [place] | | | | | | [address] | | | | | | [phone] | | | +--------+ + + + [...]
--- OUTSIDE RECORDS SUMMARY | ~2019-11-17 | XMS | Encounter Summary ---
[...] Team Providers + +------+ + | Care Referral Nurse Name | Role | Phone | [...] | | | [address] | [address] | | | | | [address] | [phone] | | | | | [facility] | | | | | | Physician's | | | | | | [facility] [place], | | | | | | [place] [address] | | | | | | [phone] | | | +--------+--------+ + + + [...]
--- OUTSIDE RECORDS SUMMARY | ~2019-11-17 | XMS | Encounter Summary ---
Demographics + + + | Address | [address] | | | [place] [address] | + + + | Home Phone [...] Team Providers + +------+ + | Care Surveillance Sensor Operator Name | Role | Phone | [...] + + | 08/10/ | Telephone | [facility] | Rosi Antonio, | Fall Ground Level | | 2013 | | Pain Center at | ANP | | | | | [facility] | | | | | | [address] | | | | | | Mailcode: CH15P | | | | | | [facility] | | | | | | and Healing, | | | | | | Building | | | | | | Floor [place], [place] | | | | | | [address] | | | | | | [phone] | | | +--------+ + + + [...]
--- OUTSIDE RECORDS SUMMARY | ~2019-11-17 | XMS | Encounter Summary ---
Demographics + + + | Address | [address] | | | [place] [address] | + + + | Home Phone [...] Providers + +------+ + | Care High Climber Name | Role | Phone | + [...] | | Procedures | [place], | [address] Phone: | | | | | OFFICE VISIT | [place] | [phone] | | | | | REGULAR | [address] | Fax: | | | | | | Phone: | [phone] | | | | | | [phone] | | | | | | | Fax: | | | | | | | [phone] | | +--------+--------+ + + + + Encounter Details +--------+---------+ + + + | Date | Type | Department | Care Team | Description | +--------+---------+ + + + | 10/18/ | Office | [facility] | Elisabet Munson, MS | Encounter for | | 2014 | Visit | AUDIOLOGY AND | CCC-A [address] | hearing evaluation | | | | HEARING AID SERVICES | [address] | (Primary Dx) | | | | [address] | [place] [address] | | | | | [facility] [address] [facility] | [phone] | | | | | [place] [address] | | | | | | [phone] | | | +--------+---------+ + + + [...] encounter Progress Notes Jeimy Elisabet, CCC-A - 10/18/2014 2:54 PM PDTReferring Provider: [...] | | | | [address] [facility] | | | | | | [place] [address] | | | | | | [phone] | | | | | | | | +--------+---------+ + + + | 12/20/ | Office | Otolaryngology | Ulysses Genao MD | | | 2019 | Visit | | [address] [place] | | | | | | [address] [place], | | | | | | [place] [address] | | | | | | [phone] | | | | | | | | +--------+---------+ + + + | 02/15/ | Office | Internal Medicine | EmmyCarmen, | | | 2019 | Visit | | MD Petrona | | | | | | [address] | | | | | | [place] [address] | | | | | | [phone] | | | | | | | [...]
--- OUTSIDE RECORDS SUMMARY | ~2019-11-17 | XMS | Encounter Summary ---
Demographics + + + | Address | [address] | | | [place] [address] | + + + | Home Phone [...] Providers + +------+ + | Care Cheese Specialist Name | Role | Phone | [...]
--- OUTSIDE RECORDS SUMMARY | ~2019-11-17 | XMS | Encounter Summary ---
Demographics + + + | Address | [address] | | | [place] [address] | + + + | Home Phone [...] + +------+ + | Care Sales Service Promoter Name | Role | Phone | [...] | [facility] | Alanis, | Chest Pain | | 2019 | | MEDICINE [address] [place] [address] | MD Petrona | | | | | [facility] | [address] [place] [address] | | | | | [place] [address] | [place] [address] | | | | | [phone] | [phone] | | | | | | | [...] | | | | | [place] [address] | | | | | | [phone] | | | | | | | | +--------+---------+ + + + | 12/20/ | Office | Otolaryngology | Ulysses Genao MD | | | 2020 | Visit | | [address] | | | | | | [address] [place], | | | | | | [place] [address] | | | | | | [phone] | | | | | | | | +--------+---------+ + + + | 02/15/ | Office | Internal Medicine | Alanis, | | | 2019 | Visit | | MD Petrona | | | | | | [address] | | | | | | [place] [address] | | | | | | [phone] | | | | | | | | +--------+---------+ + + + documented as of this encounter Visit Diagnoses Not on filedocumented in this encounter"
--- OUTSIDE RECORDS SUMMARY | ~2019-11-17 | XMS | Encounter Summary ---
Demographics + + + | Address | [address] | | | [place] [address] | + + + | Home Phone [...] + +------+ + | Care Concrete Mixer Operator Name | Role | Phone | [...] | | | | Clinical Nutrition | [place], [place] | | | | | [address] | [address] | | | | | Loop Mailcode: OPC5 | [phone] | | | | | Outpatient Clinic | | | | | | [facility], | | | | | | [place] [address] | | | | | | [phone] | | | +--------+ + + + [...]
--- OUTSIDE RECORDS SUMMARY | ~2019-11-17 | XMS | Encounter Summary ---
Demographics + + + | Address | [address] | | | [place] [address] | + + + | Home Phone [...] Providers + +------+ + | Care Form Maker Plaster Name | Role | Phone [...] [place] | | | | | | [place], [place] | [facility] | | | | | | [address] | [address] | | | | | | | [place], [place] | | | | | | | [address] | | | | | | | Phone: | | | | | | | [phone] | | | | | | | Fax: | | | | | | | [phone] | +--------+--------+ + + + + Encounter Details +--------+---------+ + + + | Date | Type | Department | Care Team | Description | +--------+---------+ + + + | 06/23/ | Office | [facility] Comprehensive | Adrien Smith, | Fibromyalgia | | 2013 | Visit | Pain Center at | [address] [facility] | syndrome 729.1 | | | | [facility] | [facility] [id number] | (Primary Dx); LBP | | | | [address] | [place], [place] | (low back pain); | | | | Mailcode: CH15P | [address] | Chronic Bilateral | | | | [facility] | [phone] | Shoulder Pain; Post | | | | and Healing, | | laminectomy | | | | | | syndrome; Chronic | | | | Floor [place], [place] | | migraine | | | | [address] | | | | | | [phone] | | | +--------+---------+ + + + [...] evaluation of a patient with fibromyalgia, the [facility] Fibromyalgia clinic suggests laboratory screening to [...] suggests that fibromyalgia patients may have reduced PERSONAL ASSISTANT opioid receptors (Reji is RE, et al. Decreased central mu-opioid receptor availability in fibromyalgia. J Neurosci . 27(37):24675-3, 2006Feb 24.) and there are no controlled [...] documented in our notes. ADRIEN SMITH MD Hand Pattern Marker, [facility] Visualizer, Pain Medicine Professor, Anesthesiology & Perioperative Medicine Brandon Phipps Md - 06/23/2013 2:[address] [facility] Comprehensive Pain Center Return Visit with [...] before her lumbar surgeries and recently in [place]. She has short-term relief from thes e treatments. I would like her to return to see Dr. Adrien Smith to discuss these treatment options. Consult to [facility] physical therapy: A supervised physical therapy [...] has been treated at the [facility] for back pain with the following [...] and a pain drawing which I reviewed. BOOKING PRIZER Brief Pain Inventory: (ten= worst possible pain [...] knee Lumbar fusion 05/2008, ' & ' [id number] with bone spur removals Appendectomy Cholecystectomy section [...] Hives Mainly in the legs Clindamycin Codeine Egzhppf-Lyphgmouhu-Jpg-Caff Balance problems Fioricet W/Codeine (Ylxctzpfco-Mrkbgzzyvl-Ehk-Cod) Keflex (Cephalexin) Morphine IM ( only in [facility]) made gut pain worse 08/27/06: Trial of oral MSIR caused leg swelling Penicillins Sulfa (Sulfonamide Antibiotics) Tramadol Ms. Meehan reports no side effects. The Review of Systems provided by Ms. Meehan and documented by the [facility] was reviewed. Austyn tional comments: 1. BONES, [...] evaluation of a patient with fibromyalgia, the [facility] Fibromyalgia clinic suggests laboratory screening to [...] suggests that fibromyalgia patients may have reduced PERSONAL ASSISTANT opioid receptors (Xavi RE, et al. Decreased central mu-opioid receptor availability in fib romyalgia. J Neurosci. 27(37):06074-8, 2006Feb 24.) and there are no controlled [...]
--- OUTSIDE RECORDS SUMMARY | ~2019-11-17 | XMS | Encounter Summary ---
Demographics + + + | Address | [address] | | | [place] [address] | + + + | Home Phone [...] Providers + +------+ + | Care Special Events Fundraiser Name | Role | Phone | [...] + | 02/10/ | Refill | [facility] | Alanis, | Medication Refill | | 2018 | | MEDICINE [address] [place] [address] | MD Petrona | | | | | [facility] | [address] [place] [address] | | | | | [place] [address] | [place] [address] | | | | | [phone] | [phone] | | | | | | | [...] | | | | | [place] [address] | | | | | | [phone] | | | | | | | | +--------+---------+ + + + | 12/20/ | Office | Otolaryngology | Ulysses Genao MD | | | 2019 | Visit | | [address] | | | | | | [address] [place], | | | | | | [place] [address] | | | | | | [phone] | | | | | | | | +--------+---------+ + + + | 02/15/ | Office | Internal Medicine | EmmyAlberto, | | | 2019 | Visit | | MD Petrona | | | | | | [facility] [address] | | | | | | [place] [address] | | | | | | [phone] | | | | | | | | +--------+---------+ + + + documented as of this encounter Visit Diagnoses + + | Diagnosis | + + | Nausea Nausea alone | + + documented in this encounter"
--- OUTSIDE RECORDS SUMMARY | ~2019-11-17 | XMS | Encounter Summary ---
Demographics + + + | Address | [address] | | | [place] [address] | + + + | Home Phone [...] Providers + +------+ + | Care Business Continuity Planner Name | Role | Phone | [...] | | | [facility] | [place], [place] | | | | | [address] | [address] | | | | | [address] | [phone] | | | | | [facility] | | | | | | Physician's | | | | | | Pavilion [place], | | | | | | [place] [address] | | | | | | [phone] | | | +--------+ + + + [...]
--- OUTSIDE RECORDS SUMMARY | ~2019-11-17 | XMS | Encounter Summary ---
Demographics + + + | Address | [address] | | | [place] [address] | + + + | Home Phone [...] + +------+ + | Care Outbound Sales Professional Name | Role | Phone [...] | escu | [address] | [place] [address] | | | | | Procedures | [place], | Phone: | | | | | OFFICE VISIT | [place] | [phone] | | | | | REGULAR | [address] | Fax: | | | | | | Phone: | [phone] | | | | | | [phone] | | | | | | | Fax: | | | | | | | [phone] | | +--------+--------+ + + + + Encounter Details +--------+---------+ + + + | Date | Type | Department | Care Team | Description | +--------+---------+ + + + | 12/07/ | Office | [facility] | Ulysses Dsouza MD | BPPV (benign | | 2015 | Visit | OTOLARYNGOLOGY [address] | [address] | paroxysmal | | | | [address] | [address] [facility] [place], | positional vertigo), | | | | [place], [place] | [place] [address] | left (Primary Dx); | | | | [address] | [phone] | Vertigo of central | | | | [phone] | | origin, left | +--------+---------+ + [...] MD - 12/07/2014 1:48 PM PDT [facility] OTOLARYNGOLOGY [address] [facility] [address] OFFICE NOTE ULYSSES DSOUZA MD Patient: BELINDA MEEHAN Admitting: MR #: [id number] LOC: PT TYPE: Adm Date: 12/07/2014 : [...] put her in a splint. The [facility] has completed an MRI scan and [...] there is a question of a [facility] involvement. The patient would repeatedly ask [...] 12/07/2014 13:48:42 Transcribed on 12/08/2014 04:46:49 by [facility] job# [id number] Confirmation #: [id number] signed by Ulysses Dsouza MD at 12/08/2014 8:52 AM Ulysses Arnold MD - 12/07/2014 1:43 PM PDTSee dictation #[id number] signed by Dmitriy Dsouza MD at 12/07/2014 [...] | | | | | [place] [address] | | | | | | [phone] | | | | | | | | +--------+---------+ + + + | 12/20/ | Office | Otolaryngology | Ulysses sDouza MD | | | 2019 | Visit | | [address] | | | | | | [address] [place], | | | | | | [place] [address] | | | | | | [phone] | | | | | | | | +--------+---------+ + + + | 02/15/ | Office | Internal Medicine | Alanis, | | | 2019 | Visit | | MD Petrona | | | | | | [address] [place] | | | | | | [place] [address] | | | | | | [phone] | | | | | | | | +--------+---------+ + + + documented as of this encounter Visit Diagnoses + + | Diagnosis | + + | BPPV (benign paroxysmal positional vertigo), left - Primary | + + | Vertigo of central origin, left | + + documented in this encounter
--- OUTSIDE RECORDS SUMMARY | ~2019-11-17 | XMS | Encounter Summary ---
Demographics + + + | Address | [address] | | | [place] [address] | + + + | Home Phone [...] Providers + +------+ + | Care Online Merchandising Manager Name | Role | Phone | [...] + + | 11/23/ | Office | [facility] [...] Encounter for | | | | Floor [place], [place] | | Long-Term (Current) | | | | [address] | | Use of Opioids; | | | | [phone] | | Major Depressive | | | [...] Belinda Meehan is a 47 y.o. female [facility] [...] drawing has be completed, which I reviewed. [facility] Brief Pain Inventory: Right Now: 9 Least [...] Result Impression NAME: BELINDA MEEHAN MR #: [id number] DATE OF EXAM: [id number] PHYSICIAN: EMMA ROJAS [...] DISK BULGE. Transcribed By: Armaan Mata : [id number] : 1442 Approved By: Radiologist: Physical Examination: [...] seeing Nathalia Arora PT here at the [facility] to address her [...] vs Hernia. 6. PT here at the [facility] available 7. Repeat TESI as needed. DELFINA MOLINA [facility] Mail code CH 4P [facility] and [address] [address] JasenTy montilla - 9:12 AM [...]
--- OUTSIDE RECORDS SUMMARY | ~2019-11-17 | XMS | Encounter Summary ---
Demographics + + + | Address | [address] | | | [place] [address] | + + + | Home Phone [...] Team Providers + +------+ + | Care Leveler Name | Role | Phone | + +------+ + | Sulaiman Carrera MD | PCP | | + +------+ + Encounter Details +--------+ + + + + | Date | Type | Department | Care Team | Description | +--------+ + + + + | 10/23/ | Ancillary | Registration [address] | Chirs Padgett, | | | 2005 | Registratio | [address] | [address] | | | | n | [place] Mailcode: [id number] | [address] | | | | | [place], [place] | [place], [place] | | | | | [address] | [address] | | | | | [phone] | [phone] | | | | | | | [...]
--- OUTSIDE RECORDS SUMMARY | ~2019-11-17 | XMS | Encounter Summary ---
Demographics + + + | Address | [address] | | | [place] [address] | + + + | Home Phone [...] Providers + +------+ + | Care Postal Service Clerk Name | Role | Phone | [...] + + | 06/22/ | Office | [facility] Comprehensive | Delfina Molina, | Herniated Lumbar | | 2006 | Visit | Pain Center at | ANP | Intervertebral Disc | | | | [facility] | | L4-5; Spondylosis | | [...] | Dependence, | | | | Floor [place], [place] | | Continuous ([facility]); | | | | [address] | | Major Depressive | | | | [phone] | | Disorder, Recurrent | | | | | | Episode, Moderate | | | | | | ([facility]); Adjustment | | | | [...] the past week of Fentanyl patch and Edison. Trileptal he lps with right leg pain and sleep. "been sleeping great". Expectations for this visit include : discussing the sticking problems with the fentanyl pa tc and her insurance not being willing prescribe Edison. There have been no other change in [...] an d her insurance stopped coverage of Edison. I believe doing pool therapy three times [...] might be d iverting or using her Edison? Until I know more I will not be prescribing a breakthrough sina n medication but am willing to prescribe early for her fentanyl. I have asked Belinda to peanut picker and be responsible for her own medication peanut picker. I discussed with Tasha Nolasco CMA the issue of Insurance PA for Edison this was in progress as of the time the patient was here. At the time I completed this note we had word that Ins urance would not approve coverage. I will discuss this with Belinda once I know her story o n where the dispensed #70 Edison is. [ Tasha reported calling [employer] who reported: Belinda's s on picking up [...] with each exchange. 3. Patient instructed to peanut picker and be responsible for her own medications. 4. Follow up in two weeks to review pain management. Once she is again stable on the fen tanyl patch I will transfer her prescribing to Dr. Gutierrez. She has completed the Multidisci plinary patient Care program here at the [facility]. DELFINA MOLINA [facility] Mail code CH 4P [facility] and [address] [address] Tasha Can - 12/04/2006 7:43 [...] | + + | Opioid dependence, continuous ([facility]) Opioid type dependence, continuous | [...]
--- OUTSIDE RECORDS SUMMARY | ~2019-11-17 | XMS | Encounter Summary ---
Demographics + + + | Address | [address] | | | [place] [address] | + + + | Home Phone [...] Team Providers + +------+ + | Care Recoverer Name | Role | Phone | + +------+ + | Sulaiman Carrera MD | PCP | | + +------+ + Encounter Details +--------+ + + + + | Date | Type | Department | Care Team | Description | +--------+ + + + + | 07/24/ | Ancillary | Registration 3181 | [place], | | | 2006 | Registratio | [facility] | MD Lukasz [address] | | | [address] | [address] Mailcode: RPB07 | [place], | | | | | [place], [place] | [place] [address] | | | | | [address] | [phone] | | | | | [phone] | | | +--------+ + + + [...] | | | | | performed at [place] | | | | | | [facility] | | | | | | Laboratory | | | | + + + + + + + + | Specimen | + + | | + + + + + + + | Performing | Address | City/State/Zipcode | Phone Number | | Organization | | | | + + + + + | [facility] | [address] | [place] [address] | | | LABORATORY | | | [...] [facility] DEPARTMENT OF | [address] | [place] [address] | | | PATHOLOGY | [address] | | | + + + + + | [facility] DEPARTMENT OF | [address] | [place] [address] | | | PATHOLOGY | [address] [...] [facility] DEPARTMENT OF | [address] | [place] [address] | | | PATHOLOGY | [address] | | | + + + + + | [facility] DEPARTMENT OF | [address] [facility] | [place] [address] | | | PATHOLOGY | [address] [...] | [address] | [place] [address] | | | PATHOLOGY | [address] | | | + + + + + | [facility] DEPARTMENT OF | [address] | [place] [address] | | | PATHOLOGY | [address] | | | + + + + + PROTHROMBIN TIME (07/24/2005 5:03 PM PST) + + + + + + | Component | Value | Ref Range | Performed | Pathologist | | | | | At | Signature | + + + + + + | INR | 0.97Comment: | 0.90 - 1.20 INR | [facility] | | | | PT INR Therapeutic [...] | [facility] | [address] | [place] [address] | | | PATHOLOGY | [address] | | | + + + + + | [facility] DEPARTMENT OF | [address] | [place] [address] | | | PATHOLOGY | [address] [...] | [facility] | [address] | [place] [address] | | | PATHOLOGY | [address] | | | + + + + + | [facility] | [address] | [place] [address] | | | PATHOLOGY | [address] | | | + + + + + documented in this encounter Visit Diagnoses Not on filedocumented in this encounter"
--- OUTSIDE RECORDS SUMMARY | ~2019-11-17 | XMS | Encounter Summary ---
Demographics + + + | Address | [address] | | | [place] [address] | + + + | Home Phone [...] Providers + +------+ + | Care Drafter Landscape Name | Role | Phone | + +------+ + | Petrona Thapa | PCP | | | MD | | | + +------+ + Encounter Details +--------+ + + + + | Date | Type | Department | Care Team | Description | +--------+ + + + + | 05/10/ | Orders Only | [facility] | Alanis, | Chronic bilateral | | 2017 | | MEDICINE [address] | MD Petrona | low back pain with | | | | Street [place] | [address] [facility] | left-sided sciatica | | | | [place] [address] | [place] [address] | (Primary Dx) | | | | [phone] | [phone] | | | | | | | [...] | | | | | [place] [address] | | | | | | [phone] | | | | | | | | +--------+---------+ + + + | 12/20/ | Office | Otolaryngology | Ulysses Genao MD | | | 2019 | Visit | | [address] | | | | | | [address] [place], | | | | | | [place] [address] | | | | | | [phone] | | | | | | | | +--------+---------+ + + + | 02/15/ | Office | Internal Medicine | Alanis, | | | 2020 | Visit | | MD Petrona | | | | | | [address] [place] | | | | | | [place] [address] | | | | | | [phone] | | | | | | | [...]
--- OUTSIDE RECORDS SUMMARY | ~2019-11-17 | XMS | Encounter Summary ---
Demographics + + + | Address | [address] | | | [place] [address] | + + + | Home Phone [...] Providers + +------+ + | Care Conductor Symphonic Orchestra Name | Role | Phone | + [...] + + | 11/14/ | Office | [facility] INTER[facility] | Alanis, | Situational | | 2019 | Visit | MEDICINE [address] [place] [address] | MD Petrona | depression (Primary | | | | [facility] | [address] [place] [address] | Dx); B12 deficiency; | | | | [place] [address] | [place] [address] | Chronic diarrhea; | | | | [phone] | [phone] | History of Zoe-en-Y | | | [...] Surgeon: Luther Brito MD; Location: [facility] PROC[facility]URE [facility] DILATION AND CURETTAGE OF UTERUS ELBOW SURGERY FINGER TRIGGER RELEASE 2002 FINGER TRIGGER RELEASE 2009 GASTRIC BYPASS SURGERY 2004 HYSTERECTOMY 05/14/1980 JOINT REPLACEMENT Bilateral 2007 2007 KNEE ARTHROSCOPY 2005 LAPAROSCOPY 01/27/2015 LAPAROTOMY 2008 ROTATOR CUFF REPAIR 2005 SPINE SURGERY TONSILLECTOMY 1964 UPPER GASTROINTESTINAL ENDOSCOPY N/A 12/18/2017 Procedure: EGD; Surgeon: Luther Brito MD; Location: [facility] MEDICAL PROC[facility]URE [facility] CURRENT MEDICATIONS Current Outpatient [...] Allergen Reactions Ensure Diarrhea Food Diarrhea Lactose Zbbfkdiigd-Jwh-Xfpr-Codeine Other (See Comments) Balance problems Codeine Sulfate Nausea Only Food Allergy Formula Diarrhea Ensure Levofloxacin Hives, Itching and Rash Butalbital Ropinirole Amitriptyline Hcl Other (See Comments) Confused and questionable for seizures Uwkbgcrqbr-Nqgn-Psmaapac Rash duplicate Zxqgbulbuz-Bzmc-Noipbeum Hives and Rash Cephalexin Hives Ciprofloxacin Hives [...] 1. Parts of this documentwere created using [employer] speech recognition software. As a resu lt, there may be unintended word spelling errors. Every attempt was made to correct the di ctation. Teresa Adame, Store Promoter - 11/15/2019 9:30 AM PDTFormatting of this note might be diff erent from the original. Administrations This Visit cyanocobalamin (VITAMIN B-12) injection 1,000 mcg Admin Date 11/15/2019 Action Given Dose 1000 mcg Route Intramuscular Administered By Teresa Mitchell, Store Promoter INdo cumented in this encounter Plan of [...] | | | | | [place] [address] | | | | | | [phone] | | | | | | | | +--------+---------+ + + + | 12/20/ | Office | Otolaryngology | Ulysses Genao MD | | | 2019 | Visit | | [address] | | | | | | [address] [place], | | | | | | [place] [address] | | | | | | [phone] | | | | | | | | +--------+---------+ + + + | 02/15/ | Office | Internal Medicine | Alanis, | | | 2019 | Visit | | MD Petrona | | | | | | [address] [place] | | | | | | [place] [address] | | | | | | [phone] | | | | | | | [...] | | | First dose on [facility] 10/15/17 at 1215 | | | [...]
--- OUTSIDE RECORDS SUMMARY | ~2019-11-17 | XMS | Encounter Summary ---
Demographics + + + | Address | [address] | | | [place] [address] | + + + | Home Phone [...] + +------+ + | Care Food Service Sales Representatives Name | Role | Phone | + [...] + | 08/19/ | Telephone | [facility] INTER[facility] | Alanis, | Cold-like Symptoms | | 2018 | | MEDICINE [address] [place] [address] | MD Petrona | | | | | [facility] | [address] [place] [address] | | | | | [place] [address] | [place] [address] | | | | | [phone] | [phone] | | | | | | | [...] | | | | | [place] [address] | | | | | | [phone] | | | | | | | | +--------+---------+ + + + | 12/20/ | Office | Otolaryngology | Ulysses Genao MD | | | 2019 | Visit | | [address] | | | | | | [address] [place] | | | | | | [place] [address] | | | | | | [phone] | | | | | | | | +--------+---------+ + + + | 02/15/ | Office | Internal Medicine | Alanis, | | | 2019 | Visit | | MD Petrona | | | | | | [address] [place] | | | | | | [place] [address] | | | | | | [phone] | | | | | | | | +--------+---------+ + + + documented as of this encounter Visit Diagnoses Not on filedocumented in this encounter"
--- OUTSIDE RECORDS SUMMARY | ~2019-11-17 | XMS | Encounter Summary ---
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 Diagnosis: Niota I: 1. (296.32) Major depressive disorder, recurrent, moderate. 2. (309.24) Adjustment disorder with anxiety. 3. 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 Niota II: Deferred Niota III: abdominal pain, migraine headache, low back pain. Niota IV: low finances Niota V: GAF 55-60 Plan: Return in 2 weeks. Check niece's visit, pacing, relaxation, activity, distraction. Contin ue cognitive/behavioral therapy. Total time spent with patient was approximately 45 minutes. LUKASZ CHARLES PHD [facility] [address] [facility], [address] [place] [address] documented in this encount er Plan of [...] | | | ([facility]) Left Knee | | | | | [...]
--- OUTSIDE RECORDS SUMMARY | ~2019-11-17 | XMS | Encounter Summary ---
Demographics + + + | Address | [address] | | | [place] [address] | + + + | Home Phone [...] Team Providers + +------+ + | Care [employer] Dean Name | Role | Phone | + +------+ + | Petrona Thapa | PCP | | | MD | | | + +------+ + Encounter Details +--------+ + + + + | Date | Type | Department | Care Team | Description | +--------+ + + + + | 09/15/ | [facility] | [facility] | Alanis, | Pain in right lower | | 2019 | Encounter | [facility] [place] | MD Petrona | leg | | | | [address] [place] | [address] [facility] | | | | | [place] | [place] [address] | | | | | [address] | [phone] | | | | | [phone] | | | +--------+ + + + [...] capsule by | 30 | 1 | 04/08/ | | | mg | mouth Daily. [...] | | | | | | [place] [address] | | | | | | [phone] | | | | | | | | +--------+---------+ + + + | 12/20/ | Office | Otolaryngology | Ulysses Genao MD | | | 2019 | Visit | | [address] | | | | | | [address] [place], | | | | | | [place] [address] | | | | | | [phone] | | | | | | | | +--------+---------+ + + + | 02/15/ | Office | Internal Medicine | Alanis, | | | 2019 | Visit | | MD Petrona | | | | | | [address] [place] | | | | | | [place] [address] | | | | | | [phone] | | | | | | | [...] | Procedure Note | + + | aTwanda, Ollie Results In - 09/15/2018 12:31 PM PDT [...]
--- OUTSIDE RECORDS SUMMARY | ~2019-11-17 | XMS | Encounter Summary ---
Demographics + + + | Address | [address] | | | [place] [address] | + + + | Home Phone [...] Team Providers + +------+ + | Care Skein Bleacher Name | Role | Phone | [...] Rd | | | | | | [place], [place] | | | | | | [address] | | | +--------+ + + + [...]
--- OUTSIDE RECORDS SUMMARY | ~2019-11-17 | XMS | Encounter Summary ---
Demographics + + + | Address | [address] | | | [place] [address] | + + + | Home Phone [...] | | | | Mailcode: [id number] | [place], [place] | | | | | [facility] | [address] | | | | | [address] [place], [place] | [phone] | | | | | [address] | | | | | | [phone] | | | +--------+ + + + [...]
--- OUTSIDE RECORDS SUMMARY | ~2019-11-17 | XMS | Encounter Summary ---
Demographics + + + | Address | [address] | | | [place] [address] | + + + | Home Phone [...] Providers + +------+ + | Care Restaurant Manager Name | Role | Phone | [...] | | | Metabolism | bypass | [address] | [address] | | | | | Hypovitamino | [address] | [address] | | | | | sis D B12 | [address] | [place], [place] | | | | | nutritional | [place], [place] | [address] | | | | | deficiency | [address] | Phone: | | | | | Other | Phone: | [phone] | | | | | protein-jose manuel | [phone] | Fax: | | | | | nick | Fax: | [phone] | | | | | malnutrition | [phone] | | | | | | Weight | | | | | | | gain | | | | | | | Procedures | | | | | | | CONSULT TO | | | | | | | ENDO | | | | | | | [address] | | | | | | | [address] | | | +--------+--------+ + + + [...] | | | [facility] | [place], [place] | Dx); Hypothyroidism; | | | | [address] | [address] | Essential | | | | [address] | [phone] | hypertension 401.9; | | | | [facility] | | Fibromyalgia | | | | Physician's | | syndrome 729.1 | | | | Pavilion [place], | | | | | | [place] [address] | | | | | | [phone] | | | +--------+---------+ + + + [...] Hives Mainly in the legs Clindamycin Codeine Pbarpyi-Chybjmqmcs-Wuw-Caff Balance problems Fioricet W/Codeine (Jhbfajlznw-Tsvculasnl-Gxh-Cod) Keflex (Cephalexin) Morphine IM ( only in [facility]) made gut pain worse [...] U/L 41 ANION GAP 8 VITAMIN B12, [id number] pg/ml >2000 (H) HEMOGLOBIN A1C <=5.6 % [...] SERUM 15.0-85.0 pg/ml 222.9 (H) VITAMIN B12, [id number] pg/ml > 2000 HEMOGLOBIN A1C <=5.6 % [...]
--- OUTSIDE RECORDS SUMMARY | ~2019-11-17 | XMS | Encounter Summary ---
Demographics + + + | Address | [address] | | | [place] [address] | + + + | Home Phone [...] Team Providers + +------+ + | Care Wash House Supervisor Name | Role | Phone [...] [address] | | | | | [facility] | [place], [place] | | | | | [address] | [address] | | | | | [address] | [phone] | | | | | [facility] | | | | | | Physician's | | | | | | Pavilion [place], | | | | | | [place] [address] | | | | | | [phone] | | | +--------+--------+ + + + [...]
--- OUTSIDE RECORDS SUMMARY | ~2019-11-17 | XMS | Encounter Summary ---
Demographics + + + | Address | [address] | | | [place] [address] | + + + | Home Phone [...] Team Providers + +------+ + | Care Utilities Operator Name | Role | Phone | [...] 09/23/ | Office | [facility] | Lukasz Charles, | Major Depressive | | 2006 | Visit | [address] | PhD [address] | Disorder, Recurrent | | | | Mailcode: CH15 | [place], [place] | Episode, Moderate | | | | [facility] | [address] | (HCC); Chronic | | | | and Healing, | [phone] | Abdominal Pain; | | | | Building | | Herniated Lumbar | | | | Floor [place], [place] | | Intervertebral Disc | | | | [address] | | L4-5; 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 Diagnosis: Arcadia I: 1. (296.32) Major depressive disorder, recurrent, moderate. 2. (309.24) Adjustment disorder with anxiety. 3. 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 Arcadia II: Deferred Arcadia III: abdominal pain, migraine headache, low back pain. Arcadia IV: low finances Arcadia V: GAF 50 Plan: Return in 2 weeks. Check preparation for move and for niece's visit, Curves gym, pacing, r elaxation, activity, distraction. Check managing Pain... book. Discuss need for further vi sits. Total time spent with patient was approximately 45 minutes. LUKASZ CHARLES PHD [facility] [address] [facility], [address] [place] [id number] documented in this encount er Plan of [...]
--- OUTSIDE RECORDS SUMMARY | ~2019-11-17 | XMS | Encounter Summary ---
Demographics + + + | Address | [address] | | | [place] [address] | + + + | Home Phone [...] Providers + +------+ + | Care Barrel Lathe Operator Outside Name | Role | Phone | + [...] Naeem Mcrae | | | | | [facility] | [place], [place] | | | | | and Healing, | [address] | | | | | [facility] | [phone] | | | | | Floor [place], [place] | | | | | | [address] | | | | | | [phone] | | | +--------+ + + + [...]
--- OUTSIDE RECORDS SUMMARY | ~2019-11-17 | XMS | Encounter Summary ---
Demographics + + + | Address | [address] | | | [place] [address] | + + + | Home Phone [...] + +------+ + | Care Marketing And Communications Officer Name | Role | Phone | + +------+ + | Pedrito Gutierrez MD | PCP | | + +------+ + Encounter Details +--------+ + + + + | Date | Type | Department | Care Team | Description | +--------+ + + + + | 11/24/ | Respiratory | | Other, Faculty | | | 2003 | | | [phone] | | | | Therapy-[facility] | | [...]
--- OUTSIDE RECORDS SUMMARY | ~2019-11-17 | XMS | Encounter Summary ---
Demographics + + + | Address | [address] | | | [place] [address] | + + + | Home Phone [...] Providers + +------+ + | Care Box Sealing Machine Operator Name | Role | Phone [...] | | | Yogierg, | [address] | | | | | Sacroiliitis | Carlos Armijo MD | [place], | | | | | , not | [address] | [place] | | | | | elsewhere | [facility] | [address] | | | | | classified | [place] | Phone: | | | | | ([facility]) | [address] | [phone] | | | | | Procedures | Phone: | Fax: | | | | | FL INJECT SI | [phone] | [phone] | | | | | JOINT | Fax: | | | | | | ARTHRGRPHY&/ | [phone] | | | | | | ANES/STEROID | | | | | | | W/IMAGE FL | | | | | | | [...] | sacroiliitis (HCC) | | | | [place] | [facility] [address] | (Primary Dx); | | | | [place] [address] | [place] [address] | Chronic low back | | | | [phone] | [phone] | pain; SCOLIOSIS , | | | | | | IDIOPATHIC; 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, [facility]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; | | | [...] | | | | | [place] [address] | | | | | | [phone] | | | | | | | | +--------+---------+ + + + | 12/20/ | Office | Otolaryngology | Ulysses Genao MD | | | 2019 | Visit | | [address] [place] | | | | | | [address] [place] | | | | | | [place] [address] | | | | | | [phone] | | | | | | | | +--------+---------+ + + + | 02/15/ | Office | Internal Medicine | Alanis, | | | 2019 | Visit | | MD [place] | | | | | | [address] | | | | | | [place] [address] | | | | | | [phone] | | | | | | | [...] fluoroscopy suite for fluoroscopically guided bilateral sacroiliac [facility] | | joint steroid injections as [...] + | [address] | [address] | [place] | [phone] | | [facility] | | [address] | | | - IMAGING | | [...] fluoroscopy suite for fluoroscopically guided bilateral sacroiliac [facility] | | joint steroid injections as [...] | + + + + + | [address] | [address] [facility] [facility] [address] | [place] | [phone] | | [facility] | | [address] | | | - IMAGING | | [...]
--- OUTSIDE RECORDS SUMMARY | ~2019-11-17 | XMS | Encounter Summary ---
Demographics + + + | Address | [address] | | | [place] [address] | + + + | Home Phone [...] | Transcriptions | + + | Interface, Slat Basket Maker Helper In - 06/05/2005 5:20 AM PST Date: | | 11/22/2003Attending Surgeon: Chris Padgett M.D.Bisque Grader(s): | | Ramon Valentine M.D.Preoperative Diagnosis:Morbid obesity.Postoperative [...] our proximal transected portion down and did mskmd-su-zzfn stapled jejunojejunostomy | | using a single [...] to this antecolic and antegastric andperformed a ztgx-lb-dljk gastrojejunostomy | | after placing a posteriorinterrupted [...] Valentine | | Syed Padgett M.D.MOOKIE / [id number] / [id number] / [id number] / [id number]: 11/22/2003T: | | 11/22/2003 | |cm to [...] transected portion down and did a | |wvfr-ob-qtoc stapled jejunojejunostomy using a single firing blue [...] antecolic and antegastric and | |performed a zqhp-ri-xgcg gastrojejunostomy after placing a posterior | |interrupted [...] | | | |MOOKIE / SHARIF | |[id number] / [id number] / [id number] / [id number] | | | | | + + documented in this encounter Visit Diagnoses Not on filedocumented in this encounter"
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
--- OUTSIDE RECORDS SUMMARY | ~2019-11-17 | XMS | Encounter Summary ---
Demographics + + + | Address | [address] | | | [place] [address] | + + + | Home Phone [...] | | | Ave Mailcode: CH4S | [facility] | | | | | [facility] | [place], [place] | | | | | and Healing, | [address] | | | | | [place] [address] [facility] | [phone] | | | | | Floor [place], [place] | | | | | | [address] | | | | | | [phone] | | | +--------+ + + + [...]
--- OUTSIDE RECORDS SUMMARY | ~2019-11-17 | XMS | Encounter Summary ---
Demographics + + + | Address | [address] | | | [place] [address] | + + + | Home Phone [...] Providers + +------+ + | Care Bilingual Nanny Name | Role | Phone | [...] [place], | | | | | [address] [place], [place] | [place] [address] | | | | | [address] | [phone] | | | | | [phone] | | | +--------+ + + + [...] | | | | | [place] [address] | | | | | | [phone] | | | | | | | | +--------+---------+ + + + | 12/20/ | Office | Otolaryngology | Ulysses Genao MD | | | 2019 | Visit | | [address] | | | | | | [address] [place], | | | | | | [place] [address] | | | | | | [phone] | | | | | | | | +--------+---------+ + + + | 02/15/ | Office | Internal Medicine | Alanis, | | | 2019 | Visit | | MD [place] | | | | | | [address] [place] | | | | | | [place] [address] | | | | | | [phone] | | | | | | | | +--------+---------+ + + + documented as of this encounter Visit Diagnoses Not on filedocumented in this encounter"
--- OUTSIDE RECORDS SUMMARY | ~2019-11-17 | XMS | Encounter Summary ---
Demographics + + + | Address | [address] | | | [place] [address] | + + + | Home Phone [...] Team Providers + +------+ + | Care Rippler Name | Role | Phone | + [...] as of this encounter Progress Notes Interface, Executive Steward In - 09/13/2005 2:06 AM PST [id number] GEOVANNI [facility] Date: 12/12/2004 Clinic: Endocrinology PHONE CONTACT NOTE The patient called me today after having surgery last week here at [facility]. Her concern was the [...] cushion which I have ordered today through [employer], phone #[phone] and fax #[phone]. Today, the patient will monitor the decubiti closely and will be in touch with myself and her other physician depending on the progress. She also still has [address], which may be removed in one or two weeks when she returns to the Surgery Clinic at [facility]. Beto Meeks M.D. PD / HS [id number] / [id number] / [id number] / [id number] cc: Chris Padgett M.D. Electronically signed by Beto Meeks 09-12-2005 02:22:31 AM documented i n this encounter Plan of Treatment Not on filedocumented as of this encounter Visit Diagnoses Not on filedocumented in this encounter"
--- OUTSIDE RECORDS SUMMARY | ~2019-11-17 | XMS | Encounter Summary ---
Demographics + + + | Address | [address] | | | [place] [address] | + + + | Home Phone [...] Providers + +------+ + | Care Addiction Specialist Name | Role | Phone | [...] as of this encounter Progress Notes Interface, Rn Cardiac Rehab In - 01/12/2005 8:09 AM PDTClinic Date: [...] months. Chris Padgett M.D. ROSA / SHARIF [id number] / [id number] / [id number] / Tdocumented in this encounter Plan of Treatment Not on filedocumented as of this encounter Visit Diagnoses Not on filedocumented in this encounter"
--- OUTSIDE RECORDS SUMMARY | ~2019-11-17 | XMS | Encounter Summary ---
Demographics + + + | Address | [address] | | | [place] [address] [...] Team Providers + +------+ + | Care Carbon Furnace Operator Name | Role | Phone [...] + | 09/21/ | Refill | [facility] | Alanis, | Medication Refill | | 2019 | | MEDICINE [address] | MD [place] | | | | | [facility] | [address] [place] [address] | | | | | [place] [address] | [place] [address] | | | | | [phone] | [phone] | | | | | | | [...] | | | | | [place] [address] | | | | | | [phone] | | | | | | | | +--------+---------+ + + + | 12/20/ | Office | Otolaryngology | Ulysses Genao MD | | | 2019 | Visit | | [address] [place] | | | | | | [address] [place], | | | | | | [place] [address] | | | | | | [phone] | | | | | | | | +--------+---------+ + + + | 02/15/ | Office | Internal Medicine | Alanis, | | | 2019 | Visit | | MD [place] | | | | | | [address] [place] [address] [address] [place] | | | | | | [place] [address] | | | | | | [phone] | | | | | | | | +--------+---------+ + + + documented as of this encounter Visit Diagnoses Not on filedocumented in this encounter"
--- OUTSIDE RECORDS SUMMARY | ~2019-11-17 | XMS | Encounter Summary ---
Demographics + + + | Address | [address] | | | [place] [address] | + + + | Home Phone [...] + +------+ + | Care Director Of Community Center Name | Role | Phone | [...] Abdominal pain | | 2005 | | [place] [address] | | | | | | [address] | | | | | | Mailcode: [id number] | | | | | | Physician's [facility]armila | | | | | | [place], [place] | | | | | | [address] | | | | | | [phone] | | | +--------+ + + + [...]
--- OUTSIDE RECORDS SUMMARY | ~2019-11-17 | XMS | Encounter Summary ---
Demographics + + + | Address | [address] | | | [place] [address] | + + + | Home Phone [...] Jayce Hartley | | | | | [facility] | [address] [place], | | | | | [address] | [place] [address] | | | | | Mailcode: CH15P | | | | | | [facility] | | | | | | and Healing, | | | | | | Building | | | | | | Floor [place], [place] | | | | | | [address] | | | | | | [phone] | | | +--------+ + + + [...]
--- OUTSIDE RECORDS SUMMARY | ~2019-11-17 | XMS | Encounter Summary ---
Demographics + + + | Address | [address] | | | [place] [address] | + + + | Home Phone [...] Team Providers + +------+ + | Care Immersion Metal Cleaner Name | Role | Phone | [...] [address] | | | | | [place], [place] | [place], [place] | | | | | [address] | [address] | | | | | [phone] | [phone] | | | | | | | [...]
--- OUTSIDE RECORDS SUMMARY | ~2019-11-17 | XMS | Encounter Summary ---
Demographics + + + | Address | [address] | | | [place] [address] | + + + | Home Phone [...] Providers + +------+ + | Care Stripper Shovel Operator Name | Role | Phone [...] | | | | Mailcode: L223A | [place], [place] | | | | | [facility] | [address] | | | | | [address] [place], [place] | [phone] | | | | | [address] | | | | | | [phone] | | | +--------+ + + + [...]
--- OUTSIDE RECORDS SUMMARY | ~2019-11-17 | XMS | Encounter Summary ---
Demographics + + + | Address | [address] | | | [place] [address] | + + + | Home Phone [...]
--- OUTSIDE RECORDS SUMMARY | ~2019-11-17 | XMS | Encounter Summary ---
Demographics + + + | Address | [address] | | | [place] [address] | + + + | Home Phone [...] + +------+ + | Care Doctor Of Radiology Name | Role | Phone | [...] | 10/16/ | Telephone | [facility] | Alanis, | Illness | | 2020 | | MEDICINE [address] | MD [place] | | | | | [facility] | [address] [facility] | | | | | [place] [address] | [place] [address] | | | | | [phone] | [phone] | | | | | | | [...] | | | | | [place] [address] | | | | | | [phone] | | | | | | | | +--------+---------+ + + + | 12/20/ | Office | Otolaryngology | Ulysses Genao MD | | | 2019 | Visit | | [address] | | | | | | [address] [place], | | | | | | [place] [address] | | | | | | [phone] | | | | | | | | +--------+---------+ + + + | 02/15/ | Office | Internal Medicine | Alanis, | | | 2019 | Visit | | MD [place] | | | | | | [address] | | | | | | [place] [address] | | | | | | [phone] | | | | | | | | +--------+---------+ + + + documented as of this encounter Visit Diagnoses Not on filedocumented in this encounter"
--- OUTSIDE RECORDS SUMMARY | ~2019-11-17 | XMS | Encounter Summary ---
Demographics + + + | Address | [address] | | | [place] [address] | + + + | Home Phone [...] Providers + +------+ + | Care Hydraulic Modeling Engineer Name | Role | Phone | [...] | | PENDING | MD [address] | [place], | | | | | [address] | [place] [address] | | | | | | [place], | Phone: | | | | | | [place] | [phone] | | | | | | [address] | Fax: | | | | | | Phone: | [phone] | | | | | | [phone] | | | | | | | Fax: | | | | | | | [phone] | | +--------+ + + + + + Reason for Visit + + + | Reason | Comments | + + + | Vertigo (Recurrent) | | + + + Encounter Details +--------+ + + + + | Date | Type | Department | Care Team | Description | +--------+ + + + + | 11/18/ | Telephone | [facility] | Alanis, | Vertigo (Recurrent) | | 2017 | | MEDICINE [address] [place] [address] | MD [place] | | | | | [facility] | [address] [place] [address] | | | | | [place] [address] | [place] [address] | | | | | [phone] | [phone] | | | | | | | [...] | | | | | [place] [address] | | | | | | [phone] | | | | | | | | +--------+---------+ + + + | 12/20/ | Office | Otolaryngology | Ulysses Genao MD | | | 2019 | Visit | | [address] | | | | | | [address] [place], | | | | | | [place] [address] | | | | | | [phone] | | | | | | | | +--------+---------+ + + + | 02/15/ | Office | Internal Medicine | Alanis, | | | 2019 | Visit | | MD [place] | | | | | | [address] | | | | | | [place] [address] | | | | | | [phone] | | | | | | | [...]
--- OUTSIDE RECORDS SUMMARY | ~2019-11-17 | XMS | Encounter Summary ---
[...] Team Providers + +------+ + | Care Maintainer Plant Name | Role | Phone | [...] | | | | | | [place], [place] | | | | | | [address] | | | | | | [phone] | | | +--------+ + + + [...]
--- OUTSIDE RECORDS SUMMARY | ~2019-11-17 | XMS | Encounter Summary ---
Demographics + + + | Address | [address] | | | [place] [address] | + + + | Home Phone [...] Providers + +------+ + | Care Home Delivery Driver Name | Role | Phone [...] [address] | | | | | [place], [place] | [place], [place] | | | | | [address] | [address] | | | | | [phone] | [phone] | | | | | | | [...] with | | | | | | Zeo-en-Y anastomosis. | | | | | | [...]
--- OUTSIDE RECORDS SUMMARY | ~2019-11-17 | XMS | Encounter Summary ---
Demographics + + + | Address | [address] | | | [place] [address] | + + + | Home Phone [...] Team Providers + +------+ + | Care Poacher Operator Name | Role | Phone | [...] + + | 03/21/ | Office | [facility] | Emmy-Kamlesh, | Migraine without | | 2019 | Visit | MEDICINE [address] [place] [address] | MD Petrona | aura and without | | | | [facility] | [address] [place] [address] | status migrainosus, | | | | [place] [address] | [place] [address] | not intractable | | | | [phone] | [phone] | (Primary Dx); | | | | [...] She is working with an orthopedist in [facility], and she anticipates that she [...] Common migraine COPD (chronic obstructive pulmonary disease) ([facility]) Depression Diarrhea Dumping syndrome Fall [...] Allergen Reactions Ensure Diarrhea Food Diarrhea Lactose Yoalqswtwg-Mav-Jdgu-Codeine Other (See Comments) Balance problems Codeine Sulfate Nausea Only Food Allergy Formula Diarrhea Ensure Levofloxacin Hives, Itching and Rash Butalbital Ropinirole Amitriptyline Hcl Other (See Comments) Confused and questionable for seizures Isxyxbksro-Dqgw-Dzcmjfxs Rash duplicate Uovtcvidyl-Hswy-Fxjixclb Hives and Rash Cephalexin Hives Ciprofloxacin Hives [...] 1. Parts of this documentwere created using Headroom speech recognition software. As a resu lt, [...] | | [facility] [address] | | | | | | [facility] | | | | | | [place] [address] | | | | | | [phone] | | | | | | | | +--------+---------+ + + + | 12/20/ | Office | Otolaryngology | Ulysses Genao MD | | | 2019 | Visit | | [address] | | | | | | [address] [place], | | | | | | [place] [address] | | | | | | [phone] | | | | | | | | +--------+---------+ + + + | 02/15/ | Office | Internal Medicine | Alanis, | | | 2019 | Visit | | MD Petrona | | | | | | [address] [place] | | | | | | [place] [address] | | | | | | [phone] | | | | | | | [...] | | | | First dose on [facility] 10/15/17 at 1215 | | | [...]
--- OUTSIDE RECORDS SUMMARY | ~2019-11-17 | XMS | Encounter Summary ---
Demographics + + + | Address | [address] | | | [place] [address] | + + + | Home Phone [...] Providers + +------+ + | Care Fruit Thinner Machine Operator Name | Role | Phone [...] | | | [facility] | [place], [place] | | | | | [address] | [address] | | | | | [address] | [phone] | | | | | Physician's | | | | | | Pavilion, 1st floor | | | | | | [place], [place] | | | | | | [address] | | | | | | [phone] | | | +--------+--------+ + + + [...]
--- OUTSIDE RECORDS SUMMARY | ~2019-11-17 | XMS | Encounter Summary ---
Demographics + + + | Address | [address] | | | [place] [address] [...] Providers + +------+ + | Care Service Counter Cashier Name | Role | Phone | [...] + + | 03/02/ | Office | [facility] | Emmy-Jeffti, | Neck pain on right | | 2018 | Visit | MEDICINE [address] | MD Petrona | side (Primary Dx); | | | | [address] [place] | [address] [facility] | Primary stabbing | | | | [place] [address] | [place] [address] | headache; | | | | [phone] | [phone] | Non-intractable | | | | | [...] Medical Student - 03/02/2018 9:30 AM PDT [facility] PROGRESS NOTE Pt. Name/Age/: Belinda Meehan 58 y.o. 1960 Med. Record Number: [id number] HPI: Belinda Meehan is a 58 y.o. [...] Osteoporosis Peripheral neuropathy Rheumatoid arthritis ([facility]) [...] Procedure: COLONOSCOPY; Surgeon: Luther Brito MD; Location: [facility] DILATION AND CURETTAGE OF UTERUS ELBOW SURGERY FINGER TRIGGER RELEASE 2003 FINGER TRIGGER RELEASE 2010 GASTRIC BYPASS SURGERY 2004 HYSTERECTOMY 05/14/1980 JOINT REPLACEMENT Bilateral 2007,2008 KNEE ARTHROSCOPY 2005 LAPAROSCOPY 01/27/2015 LAPAROTOMY 2008 ROTATOR CUFF REPAIR 2005 SPINE SURGERY TONSILLECTOMY 1964 UPPER GASTROINTESTINAL ENDOSCOPY N/A 12/18/2017 Procedure: EGD; Surgeon: Luther Brito MD; Location: [facility] Allergies Allergen Reactions Levofloxacin Hives,Itching,Rash Miihocpfrh-Qfni-Xfwrsizs Hives,Rash Cephalexin Hives Ciprofloxacin Hives,Rash Clarithromycin Hives,Rash [...] | | | | | [place] [address] | | | | | | [phone] | | | | | | | | +--------+---------+ + + + | 12/20/ | Office | Otolaryngology | Ulysses Genao MD | | | 2019 | Visit | | [address] | | | | | | [address] [place], | | | | | | [place] [address] | | | | | | [phone] | | | | | | | | +--------+---------+ + + + | 02/15/ | Office | Internal Medicine | Alanis, | | | 2019 | Visit | | MD Petrona | | | | | | [address] [place] | | | | | | [place] [address] | | | | | | [phone] | | | | | | | [...] 9 | 7 - 18 mg/dL | [place] | | | | | | [facility] | | | | | | [facility]ICAL | | | | | | CENTER - | | | | | | LABORATORY | | + + + + + + | Creatinine | 0.83 | 0.60 - 1.30 | [place] | | | | | mg/dL | [facility] | | | | | | MEDICAL | | | | | | CENTER - | | | | | | LABORATORY | | + + + + + + | eGFR if not | >60Comment: GLOMERULAR | >=60 | [place] | | | | FILTRATION | mL/min/1.73m2 | Yudy NATHAN | | | [place] | RATE,ESTIMATED | | MEDICAL | | | | mL/min/1.13n0Lsdl than | | CENTER - | | [...] [address] | [place] | [phone] | | [facility] | | [address] | | | - LABORATORY | | [...] [address] | [place] | [phone] | | [facility] | | [address] | | | - LABORATORY | | [...] + | [facility] | [address] | [place] | [phone] | | [facility] | | [address] | | | - LABORATORY | | [...]
--- OUTSIDE RECORDS SUMMARY | ~2019-11-17 | XMS | Encounter Summary ---
Demographics + + + | Address | [address] | | | [place] [address] | + + + | Home Phone [...] Providers + +------+ + | Care Dry Cleaning Machine Operator Helper Name | Role | [...] [id number] | | | | | | [place], [place] | | | | | | [address] | | | | | | [phone] | | | +--------+ + + + [...]
--- OUTSIDE RECORDS SUMMARY | ~2019-11-17 | XMS | Encounter Summary ---
Demographics + + + | Address | [address] | | | [place] [address] | + + + | Home Phone [...] Providers + +------+ + | Care Flatwork Catcher Name | Role | Phone | [...] | Diagnoses | Rileyacle, | Fili Pt Patrol Lady | | | | Therapy | Muscle | NIHARIKA Jean | [address] | | | | | strain Neck | [address] | | | | | pain | [address] | Mailcode: | | | | | Fibromyalgia | [place], [place] | [facility] | | | | | Radicular | [address] | for Health | | | | | pain in left | | and Healing, | | | | | arm | | Building [address] | | | | | Procedures | | [place], [place] | | | | | PHYSICAL | | [address] | | | | | THERAPY | | Phone: | | | | | REFERRAL | | [phone] | +--------+--------+ + + + + Reason for Visit + + + | Reason | Comments | + + + | LBP - Low back pain | | + + + Encounter Details +--------+---------+ + + + | Date | Type | Department | Care Team | Description | +--------+---------+ + + + | 08/22/ | Office | COWANG Basilio | Delfina Lambert, | Muscle Strain hips; | | 2008 | Visit | Pain Center at | ANP | Fibromyalgia; Neck | | | | [facility] | | Pain; Radicular Pain | | | | [address] | | in Left Arm; | | | | Mailcode: CH15P | | Dizziness; Black | | | | [place] [facility] | | Out; Falling | | | | and Healing, | |Falling | | | | Building | | | | | | Floor [place], [place] | | | | | | [address] | | | | | | [phone] | | | +--------+---------+ + + + [...] visit Schedule MRI of the neck at [facility] Use your TENS for the [...] be completed, which I reviewed. [facility] Brief Pain Inventory: (ten= worst [...] appointment to see lumbar spine surgery in [place] on . Psychiatric History: depressed mood, sleep [...] 278 01/18 Paniculectomy Hx lumbar fusion 05/2008 L5-B9jobvat with bone spur removals Family History Problem [...] to get the MRI results befor planning [facility]. Belinda was compliant with all aspects [...] [facility] Mail code CH 4P [facility] and [address] [address] Ailyn Foster Malissa - 03/2009 [...]
--- OUTSIDE RECORDS SUMMARY | ~2019-11-17 | XMS | Encounter Summary ---
Demographics + + + | Address | [address] | | | [place] [address] | + + + | Home Phone [...] Providers + +------+ + | Care Sr. Strategic Sourcing Manager Name | Role | Phone | [...] | | | [facility] | [place], [place] | | | | | [address] | [address] | | | | | [address] | [phone] | | | | | Physician's | | | | | | Pavilion, 1st floor | | | | | | [place], [place] | | | | | | [address] | | | | | | [phone] | | | +--------+--------+ + + + [...]
--- OUTSIDE RECORDS SUMMARY | ~2019-11-17 | XMS | Encounter Summary ---
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 Overall she has made some good changes. [...] natalie ing an effort to improve. Diagnosis: [place] I: 1. (296.32) Major depressive disorder, recurrent, moderate. 2. (309.24) Adjustment disorder with anxiety. 3. 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 [place] II: Deferred [place] III: abdominal pain, migraine headache, low back pain. [place] IV: low finances [place] V: GAF 50 Plan: Return in 2 weeks. Check pacing, relaxation, activity, distraction. Check managing Pain.. . book. Continue cognitive/behavioral therapy. Total time spent with patient was approximately 45 minutes. LUKASZ CHARLES PHD [facility] [address] [place] [address] And [facility] [address] [place] [address] documented in this encount er Plan of Treatment + + +--------+ + + | Name | Type | Priori | Associated Diagnoses | Order Schedule | | | | ty | | | + + +--------+ + + | [place] [facility], | Procedures | Routin | Major Depressive | Ordered: 08/26/2006 | | OFFICE (45-50) | | e | Disorder, Recurrent | | | | | | Episode, Moderate | | | | | | ([facility]) Spondylosis | | | | [...] | Major depressive disorder, recurrent episode, moderate ([facility]) Major depressive | | disorder, recurrent [...]
--- OUTSIDE RECORDS SUMMARY | ~2019-11-17 | XMS | Encounter Summary ---
Demographics + + + | Address | [address] | | | [place] [address] | + + + | Home Phone [...] Providers + +------+ + | Care Financial Administration Officer Name | Role | Phone | [...] | | | | Clinical Nutrition | [place], [place] | | | | | [address] | [address] | | | | | Loop Mailcode: OPC5 | [phone] | | | | | Outpatient Clinic | | | | | | [facility] | | | | | | [place] [address] | | | | | | [phone] | | | +--------+ + + + [...] + + + | [facility] | [address] | [place] [address] | | | LABORATORY | | | [...] | uIU/ml | | | | | [facility] | | | | | | Laboratories. | | | | + + + + + + + + | Specimen | + + | | + + + + + + + | Performing | Address | City/State/Zipcode | Phone Number | | Organization | | | | + + + + + | [facility] | [address] | [place] [address] | | | LABORATORY | | | [...] | + + + + + | [facility] | [address] | [place] [address] | | | LABORATORY | | | [...] | | | SERUM | performed by [facility] | | | | | | [facility] [...] + + + | [facility] | [address] | [place] [address] | | | LABORATORY | | | [...] + + | [facility] | [address] | [place] [address] | | | PATHOLOGY | [address] | | | + + + + + | [facility] | [address] | [place] [address] | | | PATHOLOGY | [address] | | | + + + + + documented in this encounter Visit Diagnoses Not on filedocumented in this encounter"
--- OUTSIDE RECORDS SUMMARY | ~2019-11-17 | XMS | Encounter Summary ---
Demographics + + + | Address | [address] | | | [place] [address] [...] Phone | + + +---------+ + | Ardiana Caregiver | ECON | Unknown | | | Rudy | | | | + + +---------+ + | Sree Wells | ECON | Unknown | | + + +---------+ + | Marco Antonio Wells | ECON | Unknown | | + + +---------+ + Care Team Providers + +------+ + | Care Customer Support Technician Name | Role | Phone [...] + + | 04/02/ | Telephone | [facility] | Alanis, | Other | | 2018 | | MEDICINE [address] [place] [address] | MD Petrona | | | | | [facility] | [address] [place] [address] | | | | | [place] [address] | [place] [address] | | | | | [phone] | [phone] | | | | | | | [...] | | | | | [place] [address] | | | | | | [phone] | | | | | | | | +--------+---------+ + + + | 12/20/ | Office | Otolaryngology | Ulysses Genao MD | | | 2019 | Visit | | [address] | | | | | | [address] [place], | | | | | | [place] [address] | | | | | | [phone] | | | | | | | | +--------+---------+ + + + | 02/15/ | Office | Internal Medicine | Alanis, | | | 2019 | Visit | | MD Petrona | | | | | | [address] [place] | | | | | | [place] [address] | | | | | | [phone] | | | | | | | | +--------+---------+ + + + documented as of this encounter Visit Diagnoses Not on filedocumented in this encounter"
--- OUTSIDE RECORDS SUMMARY | ~2019-11-17 | XMS | Encounter Summary ---
Demographics + + + | Address | [address] | | | [place] [address] | + + + | Home Phone [...] Providers + +------+ + | Care Manager Transfer Name | Role | Phone | + [...] + + | 01/04/ | Telephone | [facility] | Alanis, | Skin Irritation | | 2017 | | MEDICINE [address] [place] [address] | MD Petrona | | | | | [facility] | [address] [place] [address] | | | | | [place] [address] | [place] [address] | | | | | [phone] | [phone] | | | | | | | [...] | | | | | [place] [address] | | | | | | [phone] | | | | | | | | +--------+---------+ + + + | 12/20/ | Office | Otolaryngology | Ulysses Genao MD | | | 2019 | Visit | | [address] | | | | | | [address] [place], | | | | | | [place] [address] | | | | | | [phone] | | | | | | | | +--------+---------+ + + + | 02/15/ | Office | Internal Medicine | Alanis, | | | 2019 | Visit | | MD Petrona | | | | | | [address] [place] | | | | | | [place] [address] | | | | | | [phone] | | | | | | | | +--------+---------+ + + + documented as of this encounter Visit Diagnoses + + | Diagnosis | + + | Tinea cruris - Primary Dermatophytosis of groin and perianal area | + + documented in this encounter"
--- OUTSIDE RECORDS SUMMARY | ~2019-11-17 | XMS | Encounter Summary ---
Demographics + + + | Address | [address] | | | [place] [address] | + + + | Home Phone [...] + +------+ + | Care Accounts Payable Bookkeeper Name | Role | Phone | + [...] as of this encounter Progress Notes Interface, Visual Merchandiser In - 02/19/2005 5:04 AM PDT [id number] [facility] Date: 01/17/2005 Clinic: General [...] with Dr. Dwaine Larson. She has a vwo-sjux-mtjkx lesion at the distal aspect of her [...] Devin German M.D. Dwaine Larson M.D. [facility] / [id number] / [id number] / [id number] / [id number] Electronically signed by Dwaine Larson 02-18-2005 09:15:31 AM documented i n this encounter Plan of Treatment Not on filedocumented as of this encounter Visit Diagnoses Not on filedocumented in this encounter
--- OUTSIDE RECORDS SUMMARY | ~2019-11-17 | XMS | Encounter Summary ---
Demographics + + + | Address | [address] | | | [place] [address] | + + + | Home Phone [...] as of this encounter Progress Notes Interface, Pick Pack Worker In - 01/12/2005 6:20 AM PDT [id number] [facility] Date: 11/18/2004 Clinic: General [...] patient to send pictures to our financial center manager and dental scheduler for evaluation for medicare for panniculectomy. [...] authorization for panniculectomy. Melisa Thorne / SHARIF [id number] / [id number] / [id number] / [id number] cc: Chris Padgett M.D. Joanna Valdez MD [facility] [address] [place] [address] Electronically signed by Kenisha Melton 11-26-2004 05:00:55 PM documented i n this encounter Plan of Treatment Not on filedocumented as of this encounter Visit Diagnoses Not on filedocumented in this encounter"
--- OUTSIDE RECORDS SUMMARY | ~2019-11-17 | XMS | Encounter Summary ---
Demographics + + + | Address | [address] | | | [place] [address] | + + + | Home Phone [...] Providers + +------+ + | Care Spray Drier Operator Helper Name | Role | Phone [...] | | | | | | [facility] | | | | | | and Healing, | | | | | | Building | | | | | | Floor [place], [place] | | | | | | [address] | | | | | | [phone] | | | +--------+ + + + [...]
--- OUTSIDE RECORDS SUMMARY | ~2019-11-17 | XMS | Encounter Summary ---
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 2. May continue with [place] NTE 4 per day as prescribed 3. [...] swelling has resolved. Belinda has been using [place] 10/325 an average of 5 tablets per day. 1 tablet has an effecti ve duration of 5 hours "pain breaks through at about 4 hours", she reports taking a [place] ev eduardo 5 hours. She denies any [...] previous 6 days. 2. May continue with [place] NTE 4 per day as prescribed 3. Continue with PT and Psychology as scheduled. 4. Continue with Trileptal 150mg 1 1/2 tablet twice a day 5. Follow up to review medications on 09/09/06 and call with any concerns or questions. DELFINA MOLINA [facility] Mail code CH 4P [facility] and [address] [address] Ailyn Foster - 08/27/19 9:09 [...] medication refills today? yes documented in this [facility] Plan of Treatment Not on [...]
--- OUTSIDE RECORDS SUMMARY | ~2019-11-17 | XMS | Encounter Summary ---
Demographics + + + | Address | [address] | | | [place] [address] | + + + | Home Phone [...] Providers + +------+ + | Care Infection Prevention Coordinator Name | Role | Phone | [...]
--- OUTSIDE RECORDS SUMMARY | ~2019-11-17 | XMS | Encounter Summary ---
Demographics + + + | Address | [address] | | | [place] [address] | + + + | Home Phone [...] Providers + +------+ + | Care Unit Manager Convenience Stores Name | Role | Phone | + [...] [id number] | | | | | | [place], [place] | | | | | | [address] | | | | | | [phone] | | | +--------+ + + + [...]
--- OUTSIDE RECORDS SUMMARY | ~2019-11-17 | XMS | Encounter Summary ---
Demographics + + + | Address | [address] | | | [place] [address] | + + + | Home Phone [...] Providers + +------+ + | Care Carpet Repairer Name | Role | Phone | [...] Pavilion | | | | | | [place], [place] | | | | | | [address] | | | | | | [phone] | | | +--------+---------+ + + + [...] take place on the hill at the [facility]: Surgeries scheduled in the [facility]): registration is located on the 4th floor of [facility] (Day Surgery). Surgeries scheduled in the [facility]: registration is located on the 9th floor. Surgeries scheduled in [facility]: registration is located on the 6th floor. Surgeries scheduled in the [facility]: registration is located i n the [facility] on the first floor. For surgeries scheduled to take place at the [facility]: registration is l [...]
--- OUTSIDE RECORDS SUMMARY | ~2019-11-17 | XMS | Encounter Summary ---
Demographics + + + | Address | [address] | | | [place] [address] | + + + | Home Phone [...] Providers + +------+ + | Care Director Process Name | Role | Phone | + [...] Naeem Clementina | | | | | [facility] | [place], [place] | | | | | and Healing, | [address] | | | | | [place] [address], [facility] | [phone] | | | | | Floor [place], [place] | | | | | | [address] | | | | | | [phone] | | | +--------+ + + + [...]
--- OUTSIDE RECORDS SUMMARY | ~2019-11-17 | XMS | Encounter Summary ---
Demographics + + + | Address | [address] | | | [place] [address] | + + + | Home Phone [...] + +------+ + | Care Safety And Security Officer Name | Role | Phone | + +------+ + | Maria Esther Cintron MD | PCP | | + +------+ + Encounter Details +--------+ + + + + | Date | Type | Department | Care Team | Description | +--------+ + + + + | 04/19/ | Telephone | [facility] | Chris Padgett, | | | 2007 | | [place] [address] | [address] [employer] | | | | | Bethanie Mailcode: CH4S | Naeem Mcrae | | | | | [facility] | [place], [place] | | | | | and Healing, | [address] | | | | | Building , 6th | [phone] | | | | | Floor [place], [place] | | | | | | [address] | | | | | | [phone] | | | +--------+ + + + [...]
--- OUTSIDE RECORDS SUMMARY | ~2019-11-17 | XMS | Encounter Summary ---
Demographics + + + | Address | [address] | | | [place] [address] | + + + | Home Phone [...] Team Providers + +------+ + | Care Cadd Operator Name | Role | Phone | [...] [address] | | | | | [place], [place] | [place], [place] | | | | | [address] | [address] | | | | | [phone] | [phone] | | | | | | | [...]
--- OUTSIDE RECORDS SUMMARY | ~2019-11-17 | XMS | Encounter Summary ---
Demographics + + + | Address | [address] | | | [place] [address] | + + + | Home Phone [...] Providers + +------+ + | Care Barrel Cutter Name | Role | Phone | [...] + + | 09/30/ | Refill | [facility] | Alanis, | Medication Refill | | 2018 | | MEDICINE [address] [place] [address] | MD Petrona | | | | | [facility] | [address] [place] [address] | | | | | [place] [address] | [place] [address] | | | | | [phone] | [phone] | | | | | | | [...] | | | | | [place] [address] | | | | | | [phone] | | | | | | | | +--------+---------+ + + + | 12/20/ | Office | Otolaryngology | Ulysses Genao MD | | | 2019 | Visit | | [address] | | | | | | [address] [place], | | | | | | [place] [address] | | | | | | [phone] | | | | | | | | +--------+---------+ + + + | 02/15/ | Office | Internal Medicine | Alanis, | | | 2019 | Visit | | MD Petrona | | | | | | [address] [place] [address] [address] | | | | | | [place] [address] | | | | | | [phone] | | | | | | | | +--------+---------+ + + + documented as of this encounter Visit Diagnoses Not on filedocumented in this encounter"
--- OUTSIDE RECORDS SUMMARY | ~2019-11-17 | XMS | Encounter Summary ---
Demographics + + + | Address | [address] | | | [place] [address] | + + + | Home Phone [...] Providers + +------+ + | Care Doughnut Maker Name | Role | Phone | [...] + + | 06/30/ | Telephone | [facility] | Alanis, | Other | | 2019 | | MEDICINE [address] [place] [address] | MD Petrona | | | | | [facility] | [address] [place] [address] | | | | | [place] [address] | [place] [address] | | | | | [phone] | [phone] | | | | | | | [...] | | | | | [place] [address] | | | | | | [phone] | | | | | | | | +--------+---------+ + + + | 12/20/ | Office | Otolaryngology | Ulysses Genao MD | | | 2019 | Visit | | [address] | | | | | | [address] [place], | | | | | | [place] [address] | | | | | | [phone] | | | | | | | | +--------+---------+ + + + | 02/15/ | Office | Internal Medicine | Alanis, | | | 2019 | Visit | | MD Petrona | | | | | | [address] | | | | | | [place] [address] | | | | | | [phone] | | | | | | | [...]
--- OUTSIDE RECORDS SUMMARY | ~2019-11-17 | XMS | Encounter Summary ---
Demographics + + + | Address | [address] | | | [place] [address] | + + + | Home Phone [...] Providers + +------+ + | Care Hair Tinter Name | Role | Phone | + [...] + + | 05/26/ | Telephone | [facility] | Alanis, | Medication Question | | 2018 | | MEDICINE [address] [place] [address] | MD Petrona | | | | | [facility] | [address] [place] [address] | | | | | [place] [address] | [place] [address] | | | | | [phone] | [phone] | | | | | | | [...] | | | | | [place] [address] | | | | | | [phone] | | | | | | | | +--------+---------+ + + + | 12/20/ | Office | Otolaryngology | Ulysses Genao MD | | | 2019 | Visit | | [address] | | | | | | [address] [place] | | | | | | [place] [address] | | | | | | [phone] | | | | | | | | +--------+---------+ + + + | 02/15/ | Office | Internal Medicine | Alanis, | | | 2019 | Visit | | MD Petrona | | | | | | [address] | | | | | | [place] [address] | | | | | | [phone] | | | | | | | | +--------+---------+ + + + documented as of this encounter Visit Diagnoses Not on filedocumented in this encounter"
--- OUTSIDE RECORDS SUMMARY | ~2019-11-17 | XMS | Encounter Summary ---
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 | Visit | Pain Center at | ANP | ([facility] | | | [facility] | | Disease) of Knee; | | | | [address] | | Pain in right Ankle | | | | Mailcode: CH15P | | and Foot; Right Hip | | | | Center for [facility] | | Region Pain; | | | | and Healing, | | 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 female [facility] Comprehensive Pain [...] Simons. We reviewed materials risk notice and [facility] opioid agreement. A ll questions [...] management and reduce opioid need. DELFINA MOLINA [facility] Mail code CH 4P [facility] [address] [facility] [address] Ailyn Foster 12/22/19 12:51 PM [...] | + + | Opioid dependence, continuous ([facility]) Opioid type dependence, continuous | [...]
--- OUTSIDE RECORDS SUMMARY | ~2019-11-17 | XMS | Encounter Summary ---
Demographics + + + | Address | [address] | | | [place] [address] | + + + | Home Phone [...] Providers + +------+ + | Care Title 1 Tutor Name | Role | Phone | [...] floor | | | | | | [place], [place] | | | | | | [address] | | | | | | [phone] | | | +--------+------+ + + + [...] + | [facility] | [address] | [place] [address] | | | PATHOLOGY | [address] | | | + + + + + | [facility] | [address] | [place] [address] | | | PATHOLOGY | [address] [...] Performed At | + + + | [id number] Estimated GFR > 60 mL/min/1.73 sq m if non- | [facility] | | English [id number] Estimated GFR > 60 mL/min/1.73 sq m if | DEPARTMENT OF | | English GFR is estimated using the MDRD equation [...] [facility] DEPARTMENT | [address] | [place] [address] | | | PATHOLOGY | [address] | | | + + + + + | [facility] | [address] | [place] [address] | | | PATHOLOGY | [address] [...] RLB ([facility]) | | | [place] [address] Critical access hospital | | | [place] [address] | | + + + + + + + + | Performing | Address | City/State/Zipcode | Phone Number | | Organization | | | | + + + + + | [facility] | [address] | [place] [address] | | | LABORATORY | | | [...] RLB ([facility]) | | | [facility] [place] [address] | | | [place] [address] | | + + + + + + + + | Performing | Address | City/State/Zipcode | Phone Number | | Organization | | | | + + + + + | [facility] | [address] | [place] [address] | | | LABORATORY | | | | + + + + + documented in this encounter Visit Diagnoses + + | Diagnosis | + + | Hypothyroidism Unspecified hypothyroidism | + + | Edema | + + documented in this encounter"
--- OUTSIDE RECORDS SUMMARY | ~2019-11-17 | XMS | Encounter Summary ---
Demographics + + + | Address | [address] | | | [place] [address] | + + + | Home Phone [...] Providers + +------+ + | Care Textile Worker Name | Role | Phone | [...] | | | | | [place]ina [place], | | | | | | [place] [address] | | | | | | [phone] | | +--------+ + + + + [...] | | + +---------+ + + | [facility] DEPARTMENT OF | | [...] | | + +---------+ + + | [facility] DEPARTMENT OF | | [...] | | + +---------+ + + | [facility] DEPARTMENT OF | | | | | RADIOLOGY | | | | + +---------+ + + documented in this encounter Visit Diagnoses Not on filedocumented in this encounter"
--- OUTSIDE RECORDS SUMMARY | ~2019-11-17 | XMS | Encounter Summary ---
Demographics + + + | Address | [address] | | | [place] [address] | + + + | Home Phone [...] Team Providers + +------+ + | Care Cinder Man Name | Role | Phone | [...] | | | Metabolism | bypass | [address] | [address] | | | | | Hypovitamino | [address], | Ave | | | | | sis D B12 | [address] | [place], [place] | | | | | nutritional | [place] | [address] | | | | | deficiency | [address] | Phone: | | | | | Other | Phone: | [phone] | | | | | protein-jose manuel | [phone] | Fax: | | | | | nick | Fax: | [phone] | | | | | malnutrition | [phone] | | | | | | Weight | | | | | | | gain | | | | | | | Procedures | | | | | | | CONSULT TO | | | | | | | ENDO | | | | | | | [address] | | | | | | | [address] | | | +--------+--------+ + + + [...] | | | | | | | [place], [place] | | | | | | | [address] | | | | | | | Phone: | | | | | | | [phone] | | | | | | | Fax: | | | | | | | [phone] | +--------+--------+ + + + + Encounter Details +--------+---------+ + + + | Date | Type | Department | Care Team | Description | +--------+---------+ + + + | 09/23/ | Office | Digestive Health | Patricia Banegas, | H/O gastric bypass | | 2013 | Visit | Center at [address] | [employer]STRATOR [employer]ES [address] | (Primary Dx); | | | | [address] | [facility] [address] | Hypovitaminosis D; | | | | Mailcode: Center | [place], [place] | B12 nutritional | | | | for Health and | [address] | deficiency; Other | | | | Healing, Building 2 | [phone] | protein-calorie | | | | [facility] [place] | | malnutrition; Weight | | | | [address] | | gain; Teeth decayed | | | | [phone] | | | +--------+---------+ + + + [...] make an appt with me Calories approx. 6735-0008 per day when 3 mos or more out from surgery to maintain weight l oss. Calories may need to be adjusted up for individual needs. I recommend eating 5-6 times per day. [employer] Protein 60-100+ gms per day Water: 64 oz per day, your urine should be light yellow. Please let up know if you would like a referral to see the Payroll Services Analyst. I would be happy to put in referrals to [facility], medical membership is $198 for 3 mos. If you are 12 mos or more out from surgery and would like referral for excess skin removal please let us know. Call us if you have any questions or concerns, or send [employer] message for non-urgent issue s. Patricia Banegas RN, [facility] Nurse Practitioner for Bariatric Surgery [facility] | [address] | [place], [place] | [address] | documented in this encounter Progress Notes [...] Hives Mainly in the legs Clindamycin Codeine Oxopfsj-Mybyfmimiw-Zhz-Caff Balance problems Fioricet W/Codeine (Zclvxtiyip-Hiuuieakcj-Cbl-Cod) Keflex (Cephalexin) Morphine IM ( only in [...] replacement 08/2007 right knee Lumbar fusion 05/2008 L5-C8ixpnkw with bone spur removals Appendectomy Cholecystectomy section [...] to POC and will call or send [employer] message if any issues. Start time 1325, end time 1353. I spent a total of 28 minutes face to face with this patie nt. Over 50% of visit was in counseling. ~ 2 Minutes of additional time spent reviewing chart prior to visit and documenting after t his visit. Patricia Banegas RN, [facility]- Nurse Practitioner for Bariatric Surgery [facility] | [address] | [place] | [address] | documented in this e ncounter Plan [...]
--- OUTSIDE RECORDS SUMMARY | ~2019-11-17 | XMS | Encounter Summary ---
Demographics + + + | Address | [address] | | | [place] [address] | + + + | Home Phone [...] Team Providers + +------+ + | Care Alternative Energy Technician Name | Role | Phone | [...] Abdominal pain | | 2005 | | [address] | | | | | | [address] | | | | | | Mailcode: PII877 | | | | | | Physician's Sharmila | | | | | | [place], [place] | | | | | | [address] | | | | | | [phone] | | | +--------+ + + + [...]
--- OUTSIDE RECORDS SUMMARY | ~2019-11-17 | XMS | Encounter Summary ---
Demographics + + + | Address | [address] | | | [place] [address] | + + + | Home Phone [...] Team Providers + +------+ + | Care Disassembler Name | Role | Phone | + [...] | | | | [place], | [address] Phone: | | | | | | [place] | [phone] | | | | | | [address] | Fax: | | | | | | Phone: | [phone] | | | | | | [phone] | | | | | | | Fax: | | | | | | | [phone] | | + + + + + [...] | laterality | , [address] | [place], | | | | | [address] | [place] [address] | | | | | | [place], | Phone: | | | | | | [place] | [phone] | | | | | | [address] | Fax: | | | | | | Phone: | [phone] | | | | | | [phone] | | | | | | | Fax: | | | | | | | [phone] | | + + + + + + + Reason for Visit + + + | Reason | Comments | + + + | Referral (Follow up) | | + + + Encounter Details +--------+ + + + + | Date | Type | Department | Care Team | Description | +--------+ + + + + | 10/16/ | Telephone | [facility] | Alanis, | Referral (Follow up) | | 2019 | | MEDICINE [address] [place] [address] | MD Petrona | | | | | [facility] | [address] [place] [address] | | | | | [place] [address] | [place] [address] | | | | | [phone] | [phone] | | | | | | | [...] | | | | | [place] [address] | | | | | | [phone] | | | | | | | | +--------+---------+ + + + | 12/20/ | Office | Otolaryngology | Ulysses Genao MD | | | 2019 | Visit | | [address] | | | | | | [address] [place], | | | | | | [place] [address] | | | | | | [phone] | | | | | | | | +--------+---------+ + + + | 02/15/ | Office | Internal Medicine | Alanis, | | | 2019 | Visit | | MD Petrona | | | | | | [address] [place] | | | | | | [place] [address] | | | | | | [phone] | | | | | | | | +--------+---------+ + + + + + +--------+ + + | Name | Type | Priori | Associated Diagnoses | Order Schedule | | | | ty | | | + + +--------+ + + | * TAHIR NDIAYE | Outpatient | Routin | Meniere's [...]
--- OUTSIDE RECORDS SUMMARY | ~2019-11-17 | XMS | Encounter Summary ---
Demographics + + + | Address | [address] | | | [place] [address] | + + + | Home Phone [...] Providers + +------+ + | Care Store Operations Specialist Name | Role | Phone [...] | | | Metabolism | bypass | [address] | [address] | | | | | Hypovitamino | [address], | Ave | | | | | sis D B12 | [address] | [place], [place] | | | | | nutritional | [place] | [address] | | | | | deficiency | [address] | Phone: | | | | | Other | Phone: | [phone] | | | | | protein-jose manuel | [phone] | Fax: | | | | | nick | Fax: | [phone] | | | | | malnutrition | [phone] | | | | | | Weight | | | | | | | gain | | | | | | | Procedures | | | | | | | CONSULT TO | | | | | | | ENDO | | | | | | | [address] | | | +--------+--------+ + + + [...] | | | [facility] | [place], [place] | (Primary Dx); | | | | [address] | [address] | Metabolic syndrome X | | | | [address] | [phone] | 250.80; Essential | | | | [facility] | | hypertension 401.9; | | | | Physician's | | Unstable balance | | | | [facility] [place], | | | | | | [place] [address] | | | | | | [phone] | | | +--------+---------+ + + + [...] Hives Mainly in the legs Clindamycin Codeine Zcxkkjm-Mayclcwgak-Fvh-Caff Balance problems Fioricet W/Codeine (Nxrqccizpu-Ohdyovfrmz-Mgr-Cod) Keflex (Cephalexin) Morphine IM ( only in [facility]) made gut pain worse 08/27/06: [...] U/L 41 ANION GAP 8 VITAMIN B12, [id number] pg/ml >2000 (H) HEMOGLOBIN A1C <=5.6 % [...] SERUM 15.0-85.0 pg/ml 222.9 (H) VITAMIN B12, BIEVC710-749 pg/ml > 2000 HEMOGLOBIN A1C <=5.6 % [...] home vi a a long drive to [place]. She needs further evaluation of her right hip and BUCKET CHUCKER. This c an be most easily accomplished [...] | + +--------+ + + + | AR COLLECTION | Routin | 08/09/2013 | IGT [...] [facility] | [address] | [place], [place] | | | [facility]ARE | [address] | [address] | | | TESTS | | | [...] VERONICA | [address] | [place], [place] | | | [facility] | [address] | [address] | | | TESTS | | | [...]
--- OUTSIDE RECORDS SUMMARY | ~2019-11-17 | XMS | Encounter Summary ---
Demographics + + + | Address | [address] | | | [place] [address] | + + + | Home Phone [...] +------+ + | Care Director Of Community Services Name | Role | Phone | [...] + + | 11/03/ | Telephone | [facility] | Alanis, | Headache | | 2019 | | MEDICINE [address] [place] [address] | MD Petrona | | | | | [facility] | [address] [place] [address] | | | | | [place] [address] | [place] [address] | | | | | [phone] | [phone] | | | | | | | [...] | | | | | [place] [address] | | | | | | [phone] | | | | | | | | +--------+---------+ + + + | 12/20/ | Office | Otolaryngology | Ulysses Genao MD | | | 2019 | Visit | | [address] | | | | | | [address] [place], | | | | | | [place] [address] | | | | | | [phone] | | | | | | | | +--------+---------+ + + + | 02/15/ | Office | Internal Medicine | Alanis, | | | 2019 | Visit | | MD Petrona | | | | | | [address] | | | | | | [place] [address] | | | | | | [phone] | | | | | | | | +--------+---------+ + + + documented as of this encounter Visit Diagnoses Not on filedocumented in this encounter"
--- OUTSIDE RECORDS SUMMARY | ~2019-11-17 | XMS | Encounter Summary ---
Demographics + + + | Address | [address] | | | [place] [address] | + + + | Home Phone [...] Team Providers + +------+ + | Care Jewel Hole Driller Name | Role | Phone [...] as of this encounter Progress Notes Interface, Campaign Associate In - 01/12/2005 10:09 AM PDT [id number] [facility] Date: 12/11/2004 Clinic: Telephone [...] sent to Ms. Meehan' home address at [facility] [address] [address]. The address was confirmed with Ms. Meehan prior to sending. Ms. Meehan has a followup appointment in Dr. Padgett's clinic on December 19, 2004. Nathalia Richard R.N., B.S.N. Liliya Kirkpatrick. / [id number] / [id number] / [id number] / Electronically signed by Nuris Chapman 12-20-2004 05:05:06 PM docushazia i n this encounter Plan of Treatment Not on filedocumented as of this encounter Visit Diagnoses Not on filedocumented in this encounter"
--- OUTSIDE RECORDS SUMMARY | ~2019-11-17 | XMS | Encounter Summary ---
Demographics + + + | Address | [address] | | | [place] [address] | + + + | Home Phone [...] Providers + +------+ + | Care Wind Science And Planning Name | Role | Phone | + +------+ + | Maria Esther Cintron MD | PCP | | + +------+ + Encounter Details +--------+ + + + + | Date | Type | Department | Care Team | Description | +--------+ + + + + | 08/26/ | Telephone | Digestive Health | Chris Padgett, | | | 2010 | | [place] [address] | [address] [facility] | | | | | Bethanie Mailcode: CH4S | [address] | | | | | Center for [facility] | [place], [place] | | | | | and Healing, | [address] | | | | | Building , 6th | [phone] | | | | | Floor [place], [place] | | | | | | [address] | | | | | | [phone] | | | +--------+ + + + [...]
--- OUTSIDE RECORDS SUMMARY | ~2019-11-17 | XMS | Encounter Summary ---
Demographics + + + | Address | [address] | | | [place] [address] | + + + | Home Phone [...] Team Providers + +------+ + | Care Voltage Tester Name | Role | Phone | [...] | | Essential | | | | [place], [place] | | hypertension 401.9; | | | | [address] | | Type II or | | | | [phone] | | unspecified type | | | [...] | | | LABORATORY | | | AL[place]IAN | | | SERVICES, | | | [...] | + + + + + | [facility] | [address] | [place] [address] | | | SERVICES, CORE | [address] [...] + + + + + | [facility] | [address] | [place] [address] | | | SERVICES, CORE | [address] [...] | | If you are | | [place] | | | | screening for diabetes: [...] + | [facility] | [address] | [place] [address] | | | [place] | | | [...] [facility] | [address] | [place] [address] | | | SERVICES, SPECIAL | PARK [...] + + + | [facility] | [address] | [place] [address] | | | SERVICES, CORE | [address] [...] [facility] | [address] | [place] [address] | | | SERVICES, SPECIAL | [address] [...] by | | | | | | Social [employer],[address] | | | | | | Abdiaziz Morales, [facility] | | | | | | [address] | | | | | | [phone].[employer]. | | | | | | Get [...] [facility] | [address] | [place], [place] | | | [facility] | | [address] | | + + + + + [...] | + + + + + | [facility] | [address] | [place] [address] | | | SERVICES, SPECIAL | [address] [...] + | [facility] | [address] | [place] [address] | | | [place] | | | | + + + [...]
--- OUTSIDE RECORDS SUMMARY | ~2019-11-17 | XMS | Encounter Summary ---
Demographics + + + | Address | [address] | | | [place] [address] | + + + | Home Phone [...] Providers + +------+ + | Care Manager Primary Name | Role | Phone | [...] + + | 04/26/ | Refill | [facility] | Alanis, | Medication Refill | | 2017 | | MEDICINE [address] [place] [address] | MD Petrona | | | | | [facility] | [address] [place] [address] | | | | | [place] [address] | [place] [address] | | | | | [phone] | [phone] | | | | | | | [...] | | | | | [place] [address] | | | | | | [phone] | | | | | | | | +--------+---------+ + + + | 12/20/ | Office | Otolaryngology | Ulysses Genao MD | | | 2019 | Visit | | [address] | | | | | | [address] [place], | | | | | | [place] [address] | | | | | | [phone] | | | | | | | | +--------+---------+ + + + | 02/15/ | Office | Internal Medicine | Alanis, | | | 2019 | Visit | | MD Petrona | | | | | | [address] [place] [address] [address] | | | | | | [place] [address] | | | | | | [phone] | | | | | | | | +--------+---------+ + + + documented as of this encounter Visit Diagnoses Not on filedocumented in this encounter"
--- OUTSIDE RECORDS SUMMARY | ~2019-11-17 | XMS | Encounter Summary ---
Demographics + + + | Address | [address] | | | [place] [address] [...] Providers + +------+ + | Care Kiln Remover Name | Role | Phone | [...] + + | 04/26/ | Refill | [facility] | Alanis, | Medication Refill | | 2018 | | MEDICINE [address] [place] [address] | MD Petrona | | | | | [facility] | [address] [place] [address] | | | | | [place] [address] | [place] [address] | | | | | [phone] | [phone] | | | | | | | [...] | | | | | [place] [address] | | | | | | [phone] | | | | | | | | +--------+---------+ + + + | 12/20/ | Office | Otolaryngology | Ulysses Genao MD | | | 2019 | Visit | | [address] | | | | | | [address] [place], | | | | | | [place] [address] | | | | | | [phone] | | | | | | | | +--------+---------+ + + + | 02/15/ | Office | Internal Medicine | Alanis, | | | 2019 | Visit | | MD Petrona | | | | | | [address] [place] [address] [address] | | | | | | [place] [address] | | | | | | [phone] | | | | | | | | +--------+---------+ + + + documented as of this encounter Visit Diagnoses Not on filedocumented in this encounter"
--- OUTSIDE RECORDS SUMMARY | ~2019-11-17 | XMS | Encounter Summary ---
Demographics + + + | Address | [address] | | | [place] [address] | + + + | Home Phone [...] + +------+ + | Care Agricultural Economics Teacher Name | Role | Phone | [...] as of this encounter Progress Notes Interface, Harvesting Contractor In - 01/12/2005 9:01 AM PDT [id number] [facility] Date: 05/20/2004 Clinic: Morbid [...] Surgery Chris Padgett M.D. MS / HS [id number] / [id number] / [id number] / [id number] documented i n this encounter Plan of Treatment Not on filedocumented as of this encounter Visit Diagnoses Not on filedocumented in this encounter"
--- OUTSIDE RECORDS SUMMARY | ~2019-11-17 | XMS | Encounter Summary ---
Demographics + + + | Address | [address] | | | [place] [address] | + + + | Home Phone [...] Providers + +------+ + | Care Family Day Care Provider Name | Role | [...] | sciatica | [address] | [place] [address] | | | | | Generalized | [place], | Phone: | | | | | osteoarthrit | [place] | [phone] | | | | | is | [address] | Fax: | | | | | | Phone: | [phone] | | | | | | [phone] | | | | | | | Fax: | | | | | | | [phone] | | +--------+ + + + + + Reason for Visit + + + | Reason | Comments | + + + | Medication Problem | | + + + Encounter Details +--------+--------+ + + + | Date | Type | Department | Care Team | Description | +--------+--------+ + + + | 06/05/ | Refill | [facility] [place] [facility] | Alanis, | Medication Problem | | 2016 | | MEDICINE [address] [place] [address] | MD Petrona | | | | | [facility] | [address] [place] [address] | | | | | [place] [address] | [place] [address] | | | | | [phone] | [phone] | | | | | | | [...] | | | | | [place] [address] | | | | | | [phone] | | | | | | | | +--------+---------+ + + + | 12/20/ | Office | Otolaryngology | Ulysses Genao MD | | | 2019 | Visit | | [address] | | | | | | [address] [place], | | | | | | [place] [address] | | | | | | [phone] | | | | | | | | +--------+---------+ + + + | 02/15/ | Office | Internal Medicine | EmmyAlberto, | | | 2019 | Visit | | MD Petrona | | | | | | [address] | | | | | | [place] [address] | | | | | | [phone] | | | | | | | [...]
--- OUTSIDE RECORDS SUMMARY | ~2019-11-17 | XMS | Encounter Summary ---
Demographics + + + | Address | [address] | | | [place] [address] | + + + | Home Phone [...] Providers + +------+ + | Care Tube Heater Name | Role | Phone | [...] of this encounter Progress Notes Interface, Meter Reading Clerk In - 09/13/2005 2:06 AM PST [id number] GEOVANNI SKELTON [facility] Date: 07/03/2005 Clinic: [...] which are pending through the laboratory in [place]. Allergies: PENICILLIN, CODEINE, KEFLEX, SULFA, CIPRO, AND [...] which were done several days ago in [place]. Beto Meeks M.D. PD / HS [id number] / [id number] / [id number] / [id number] cc: Chris Padgett M.D. [facility] Electronically signed by Beto Meeks 09-12-2005 02:23:07 AM documented i n this encounter Plan of Treatment Not on filedocumented as of this encounter Visit Diagnoses Not on filedocumented in this encounter"
--- OUTSIDE RECORDS SUMMARY | ~2019-11-17 | XMS | Encounter Summary ---
Demographics + + + | Address | [address] | | | [place] [address] | + + + | Home Phone [...] Team Providers + +------+ + | Care Dexigraph Operator Name | Role | Phone | [...] | | | | [address] | [address] Phone: | | | | | | [place], | [phone] | | | | | | [place] | Fax: | | | | | | [address] | [phone] | | | | | | Phone: | | | | | | | [phone] | | | | | | | Fax: | | | | | | | [phone] | | +--------+--------+ + + + + Encounter Details +--------+---------+ + + + | Date | Type | Department | Care Team | Description | +--------+---------+ + + + | 11/28/ | Office | [facility] | Carlos Hsieh | NO SHOW (Primary Dx) | | 2014 | Visit | PHYSIATRY [address] | T, [address] | | | | [address] | [place], [place] | | | | | [place] | [address] | | | | | [address] | | | | | | [phone] | Joe, | | | | | | MARY Montero [address] | | | | | | [address] | | | | | | [place] [address] | | | | | | [phone] | | | | | | | [...] | | [facility] [address] | | | | | | [facility] [address] [facility] | | | | | | [place] [address] | | | | | | [phone] | | | | | | | | +--------+---------+ + + + | 12/20/ | Office | Otolaryngology | Ulysses Genao MD | | | 2019 | Visit | | [address] | | | | | | [address] [place] | | | | | | [place] [address] | | | | | | [phone] | | | | | | | | +--------+---------+ + + + | 02/15/ | Office | Internal Medicine | EmmyCarmen, | | | 2019 | Visit | | MD Petrona | | | | | | [address] [place] | | | | | | [place] [address] | | | | | | [phone] | | | | | | | | +--------+---------+ + + + documented as of this encounter Visit Diagnoses + + | Diagnosis | + + | No Show - Primary Code used for vists where the patient is not seen | + + documented in this encounter"
--- OUTSIDE RECORDS SUMMARY | ~2019-11-17 | XMS | Encounter Summary ---
Demographics + + + | Address | [address] | | | [place] [address] | + + + | Home Phone [...] + | Care Industrial Safety And Health Technician Name | Role | Phone [...] + + | 12/28/ | Telephone | [facility] | Alanis, | Radiology | | 2018 | | MEDICINE [address] [place] [address] | MD Petrona | Appointment | | | | [facility] | [address] [place] [address] | | | | | [place] [address] | [place] [address] | | | | | [phone] | [phone] | | | | | | | [...] | | | | | [place] [address] | | | | | | [phone] | | | | | | | | +--------+---------+ + + + | 12/20/ | Office | Otolaryngology | Ulysses Genao MD | | | 2020 | Visit | | [address] | | | | | | [address] [place], | | | | | | [place] [address] | | | | | | [phone] | | | | | | | | +--------+---------+ + + + | 02/15/ | Office | Internal Medicine | Alanis, | | | 2019 | Visit | | MD Petrona | | | | | | [address] | | | | | | [place] [address] | | | | | | [phone] | | | | | | | | +--------+---------+ + + + documented as of this encounter Visit Diagnoses Not on filedocumented in this encounter"
--- OUTSIDE RECORDS SUMMARY | ~2019-11-17 | XMS | Encounter Summary ---
Demographics + + + | Address | [address] | | | [place] [address] | + + + | Home Phone [...] Providers + +------+ + | Care Technical Healthcare Consultant Name | Role | Phone | [...] CH15P | | | | | | [facility] | | | | | | and [place], | | | | | | [facility] | | | | | | [place], [place] | | | | | | [address] | | | | | | [phone] | | | +--------+ + + + [...]
--- OUTSIDE RECORDS SUMMARY | ~2019-11-17 | XMS | Encounter Summary ---
Demographics + + + | Address | [address] | | | [place] [address] | + + + | Home Phone [...] Providers + +------+ + | Care Event Decorator And Designer Name | Role | Phone | [...] CH15P | | | | | | [facility] | | | | | | and Healing, | | | | | | Building | | | | | | Floor [place], [place] | | | | | | [address] | | | | | | [phone] | | | +--------+ + + + [...]
--- OUTSIDE RECORDS SUMMARY | ~2019-11-17 | XMS | Encounter Summary ---
Demographics + + + | Address | [address] | | | [place] [address] | + + + | Home Phone [...] Providers + +------+ + | Care Charger Operator Helper Name | Role | Phone [...] + + | 06/04/ | Telephone | [facility] | Alanis, | Medication Problem | | 2016 | | MEDICINE [address] [place] [address] | MD Petrona | | | | | [facility] | [address] [place] [address] | | | | | [place] [address] | [place] [address] | | | | | [phone] | [phone] | | | | | | | [...] | | | | | [place] [address] | | | | | | [phone] | | | | | | | | +--------+---------+ + + + | 12/20/ | Office | Otolaryngology | Ulysses Genao MD | | | 2019 | Visit | | [address] | | | | | | [address] [place], | | | | | | [place] [address] | | | | | | [phone] | | | | | | | | +--------+---------+ + + + | 02/15/ | Office | Internal Medicine | Alanis, | | | 2019 | Visit | | MD Petrona | | | | | | [address] [place] | | | | | | [place] [address] | | | | | | [phone] | | | | | | | | +--------+---------+ + + + documented as of this encounter Visit Diagnoses Not on filedocumented in this encounter"
--- OUTSIDE RECORDS SUMMARY | ~2019-11-17 | XMS | Encounter Summary ---
Demographics + + + | Address | [address] | | | [place] [address] | + + + | Home Phone [...] Providers + +------+ + | Care Petroleum Refinery Laborer Name | Role | Phone | [...] | Visit | [facility] [address] | PARIMUTUEL CLERK | syndrome [address] | | | | [address] | | (Primary Dx); | | | | Physician's | | Fibromyalgia | | | | Pavilion, 4th Floor | | | | | | [place], [place] | | | | | | [address] | | | | | | [phone] | | | +--------+---------+ + + + [...]
--- OUTSIDE RECORDS SUMMARY | ~2019-11-17 | XMS | Encounter Summary ---
Demographics + + + | Address | [address] | | | [place] [address] [...] | | | | [address] Physician's | [place], [place] | | | | | [address] | [address] | | | | | [place], [place] | [phone] | | | | | [address] | | | | | | [phone] | | | +--------+ + + + [...]
--- OUTSIDE RECORDS SUMMARY | ~2019-11-17 | XMS | Encounter Summary ---
Demographics + + + | Address | [address] | | | [place] [address] | + + + | Home Phone [...] Providers + +------+ + | Care General Merchandise Salesperson Name | Role | Phone | [...] [place] | | | | | | [address] | | | | | | [phone] | | | +--------+--------+ + + + [...]
--- OUTSIDE RECORDS SUMMARY | ~2019-11-17 | XMS | Encounter Summary ---
Demographics + + + | Address | [address] | | | [place] [address] | + + + | Home Phone [...] + +------+ + | Care Wet Process Miller Head Assistant Name | Role | Phone | [...] + + | 11/23/ | Telephone | [facility] | Luther Brito MD | Other | | 2018 | | GASTROENTEROLOGY | [address] | | | | | [address] [facility] | [place], [place] | | | | | [address] [place], [place] | [address] | | | | | [address] | [phone] | | | | | [phone] | | | +--------+ + + + [...] | | | | | [place] [address] | | | | | | [phone] | | | | | | | | +--------+---------+ + + + | 12/20/ | Office | Otolaryngology | Ulysses Genao MD | | | 2019 | Visit | | [address] | | | | | | [address] [place], | | | | | | [place] [address] | | | | | | [phone] | | | | | | | | +--------+---------+ + + + | 09/03/ | Office | Internal Medicine | Alanis, | | | 2019 | Visit | | MD Petrona | | | | | | [address] | | | | | | [place] [address] | | | | | | [phone] | | | | | | | | +--------+---------+ + + + documented as of this encounter Visit Diagnoses Not on filedocumented in this encounter"
--- OUTSIDE RECORDS SUMMARY | ~2019-11-17 | XMS | Encounter Summary ---
Demographics + + + | Address | [address] | | | [place] [address] | + + + | Home Phone [...] Providers + +------+ + | Care Vegetable Picker Name | Role | Phone | + +------+ + | Pedrito Gutierrez MD | PCP | | + +------+ + Encounter Details +--------+ + + + + | Date | Type | Department | Care Team | Description | +--------+ + + + + | 08/04/ | Telephone | [facility] | Chris Padgett, | | | 2006 | | [place] | [address] [facility] | | | | | Bethanie Mailcode: CH4S | [facility] | | | | | Center for [facility] | [place], [place] | | | | | and Healing, | [address] | | | | | Building | [phone] | | | | | Floor [place], [place] | | | | | | [address] | | | | | | [phone] | | | +--------+ + + + [...]
--- OUTSIDE RECORDS SUMMARY | ~2019-11-17 | XMS | Encounter Summary ---
Demographics + + + | Address | [address] | | | [place] [address] | + + + | Home Phone [...] + +------+ + | Care Dry Cleaning Attendant Name | Role | Phone [...] | | | | | hemorrhoid | [place], [place] | [address] [facility] | | | | | Rectal pain | [address] | [facility] | | | | | Procedures | | Rd [place], | | | | | CONSULT TO | | [place] | | | | | COLORECTAL | | [address] | | | | | SURGERY | | Phone: | | | | | | | [phone] | | | | | | | Fax: | | | | | | | [phone] | +--------+--------+ + + + + Encounter Details +--------+ + + + + | Date | Type | Department | Care Team | Description | +--------+ + + + + | 08/10/ | Crabbing Machine Operator | [facility] | Nuris Cardenas, ANP | Internal Hemorrhoid; | | 2008 | | [place] [address] [address] | | Rectal Pain | | | | [address] | | | | | | Mailcode: [id number] | | | | | | [facility] | | | | | | [place], [place] | | | | | | [address] | | | | | | [phone] | | | +--------+ + + + [...]
--- OUTSIDE RECORDS SUMMARY | ~2019-11-17 | XMS | Encounter Summary ---
Demographics + + + | Address | [address] | | | [place] [address] | + + + | Home Phone [...] Providers + +------+ + | Care Granite Cutter Name | Role | Phone | [...] + + | 09/04/ | Telephone | [facility] | Alanis, | Appointment Question | | 2019 | | MEDICINE [address] [place] [address] | MD Petrona | | | | | [facility] | [address] [place] [address] | | | | | [place] [address] | [place] [address] | | | | | [phone] | [phone] | | | | | | | [...] | | | | | [place] [address] | | | | | | [phone] | | | | | | | | +--------+---------+ + + + | 12/20/ | Office | Otolaryngology | Ulysses Genao MD | | | 2019 | Visit | | [address] | | | | | | [address] [place], | | | | | | [place] [address] | | | | | | [phone] | | | | | | | | +--------+---------+ + + + | 02/15/ | Office | Internal Medicine | Alanis, | | | 2019 | Visit | | MD Petrona | | | | | | [address] | | | | | | [place] [address] | | | | | | [phone] | | | | | | | | +--------+---------+ + + + documented as of this encounter Visit Diagnoses Not on filedocumented in this encounter"
--- OUTSIDE RECORDS SUMMARY | ~2019-11-17 | XMS | Encounter Summary ---
Demographics + + + | Address | [address] | | | [place] [address] | + + + | Home Phone [...] Providers + +------+ + | Care Crop Roller Name | Role | Phone | [...] | Pain | Diagnoses | Miracle, | Weber, | | | | Management | LBP (low | NIHARIKA Jean | Lukasz Rhodes, PhD | | | | | back pain) | [address] | [address] | | | | | DJD | [address] | Ave | | | | | (degenerativ | [place], [place] | [place] | | | | | e joint | [address] | [address] | | | | | disease) of | | Phone: | | | | | knee Knee | | [phone] | | | | | pain Major | | Fax: | | | | | depressive | | [phone] | | | | | disorder, | [...] 04/28/ | Office | [facility] | Lukasz Charles, | Major Depressive | | 2007 | Visit | [address] | PhD [address] | Disorder, Recurrent | | | | Mailcode: CH15P | [place], [place] | Episode, Mild (HCC); | | | | [place] [facility] | [address] | LBP (Low Back | | | | and Healing, | [phone] | Pain); Migraine | | | | | | Headache | | | | Floor [place], [place] | | | | | | [address] | | | | | | [phone] | | | +--------+---------+ + + + [...] scheduled to come here after surgery. Diagnosis: [place] I: 1. (296.31) Major depressive disorder, recurrent, mild. 2. (309.24) Adjustment disorder with anxiety. 3. 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 [place] II: Deferred [place] III: abdominal pain, migraine headache, low back pain. [place] IV: low finances [place] V: GAF 55-60 Plan: return with next medical follow-up appointment. Check mood, pain, surgical recovery , relaxation, activity, distraction, eating. Ask about headaches, fainting, Thanksgiving. Continue cognitive/behavioral therapy. Total time spent with patient was approximately 45 minutes. LUKASZ CHARLES PHD [facility] [address] [facility], [address]th [place] [address] documented in this encount er Plan of Treatment + + +--------+ + + | Name | Type | Priori | Associated Diagnoses | Order Schedule | | | | ty | | | + + +--------+ + + | [facility], | Procedures | Routin | Major Depressive | Ordered: 04/28/2008 | | OFFICE (14-63) | | e | Disorder, Recurrent | [...]
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
--- OUTSIDE RECORDS SUMMARY | ~2019-11-17 | XMS | Encounter Summary ---
Demographics + + + | Address | [address] | | | [place] [address] | + + + | Home Phone [...] Providers + +------+ + | Care Brand Representative Name | Role | Phone | [...] + + | 12/26/ | Refill | [facility] | Alanis, | Medication Refill | | 2017 | | MEDICINE [address] [place] [address] | MD Petrona | | | | | [facility] | [address] [place] [address] | | | | | [place] [address] | [place] [address] | | | | | [phone] | [phone] | | | | | | | [...] | | | | | [place] [address] | | | | | | [phone] | | | | | | | | +--------+---------+ + + + | 12/20/ | Office | Otolaryngology | Ulysses Genao MD | | | 2019 | Visit | | [address] | | | | | | [address] [place], | | | | | | [place] [address] | | | | | | [phone] | | | | | | | | +--------+---------+ + + + | 02/15/ | Office | Internal Medicine | Alanis, | | | 2019 | Visit | | MD Petrona | | | | | | [address] [place] [address] [address] | | | | | | [place] [address] | | | | | | [phone] | | | | | | | | +--------+---------+ + + + documented as of this encounter Visit Diagnoses Not on filedocumented in this encounter"
--- OUTSIDE RECORDS SUMMARY | ~2019-11-17 | XMS | Encounter Summary ---
Demographics + + + | Address | [address] | | | [place] [address] | + + + | Home Phone [...] Providers + +------+ + | Care Pediatric Nurse Practitioner Name | Role | Phone [...] + + | 06/13/ | Refill | [facility] | Alanis, | Medication Refill; | | 2018 | | MEDICINE [address] [place] [address] | MD Petrona | Medication Refill | | | | [facility] | [address] [place] [address] | | | | | [place] [address] | [place] [address] | | | | | [phone] | [phone] | | | | | | | [...] | | | | | [place] [address] | | | | | | [phone] | | | | | | | | +--------+---------+ + + + | 12/20/ | Office | Otolaryngology | Ulysses Genao MD | | | 2019 | Visit | | [address] [place] | | | | | | [address] [place] | | | | | | [place] [address] | | | | | | [phone] | | | | | | | | +--------+---------+ + + + | 02/15/ | Office | Internal Medicine | Alanis, | | | 2019 | Visit | | MD Petrona | | | | | | [address] [place] | | | | | | [place] [address] | | | | | | [phone] | | | | | | | | +--------+---------+ + + + documented as of this encounter Visit Diagnoses Not on filedocumented in this encounter"
--- OUTSIDE RECORDS SUMMARY | ~2019-11-17 | XMS | Encounter Summary ---
Demographics + + + | Address | [address] | | | [place] [address] | + + + | Home Phone [...] Providers + +------+ + | Care Finance Manager Name | Role | Phone | [...] as of this encounter Progress Notes Interface, Cashier In - 03/26/2006 1:05 AM [facility] [place] [address] [place] [address] or February 22, 2001 Pedrito Gutierrez M.D. [facility] [address] [place] [address] RE: BELINDA MEEHAN MR #: [id number] Dear [...] regarding this patient. Sincerely, Issac Meeks M.D. java groovy developer Division of Endocrinology, Diabetes, and Clinical Size Painter, Metabolic Disorders Clinic PBD / HS [id number] / [id number] / [id number] / [id number] signed by Interface, Cashier In at 03/26/2006 1:05 AM PDTdocume nted in this encounter Plan of Treatment Not on filedocumented as of this encounter Visit Diagnoses Not on filedocumented in this encounter
--- OUTSIDE RECORDS SUMMARY | ~2019-11-17 | XMS | Encounter Summary ---
Demographics + + + | Address | [address] | | | [place] [address] | + + + [...] Providers + +------+ + | Care Supervisor Body Assembly Name | Role | Phone | [...] | 2006 | Visit | [facility] [place] | MD Darrion,PhD [address] | (Primary Dx) | | | | for Health and | [address] | | | | | Healing [address] | [place], [place] | | | | | Ave Mailcode: | [address] | | | | | [facility] [place] for | [phone] | | | | | Health and Healing, | | | | | | [facility] | | | | | | Floor [place], [place] | | | | | | [address] | | | | | | [phone] | | | +--------+---------+ + + + [...] (ciprofloxacin) Tramadol Morphine IM ( only in [facility]) made gut pain worse REVIEW OF SYSTEMS: [...] normal limits except as noted. RIGHT LEFT Walford Crepitation J Sign Apprehension LIGAMENTS: Within normal [...] are not effective. Angel Morales M.D., Ph.D. Dish Network Installer, Surgical Machine Plate Stacker Orthopedics & Cartilage Reconstruction Surgery Department of Orthopedics [email or web address] documented in this encou nter Plan of Treatment Not on filedocumented as of this encounter Visit Diagnoses + + | Diagnosis | + + | Osteoarthrosis, unspecified whether generalized or localized, lower leg - Primary | + + documented in this encounter
--- OUTSIDE RECORDS SUMMARY | ~2019-11-17 | XMS | Encounter Summary ---
Demographics + + + | Address | [address] | | | [place] [address] | + + + | Home Phone [...] Providers + +------+ + | Care Jewelry Appraiser Name | Role | Phone | [...] + + | 05/18/ | Refill | [facility] | Alanis, | Medication Refill | | 2016 | | MEDICINE [address] [place] [address] | MD Petrona | | | | | [facility] | [address] [place] [address] | | | | | [place] [address] | [place] [address] | | | | | [phone] | [phone] | | | | | | | [...] | | | | | [place] [address] | | | | | | [phone] | | | | | | | | +--------+---------+ + + + | 12/20/ | Office | Otolaryngology | Ulysses Genao MD | | | 2019 | Visit | | [address] [place] | | | | | | [address] [place], | | | | | | [place] [address] | | | | | | [phone] | | | | | | | | +--------+---------+ + + + | 02/15/ | Office | Internal Medicine | Alanis, | | | 2019 | Visit | | MD Petrona | | | | | | [address] [place] [address] [place] | | | | | | [place] [address] | | | | | | [phone] | | | | | | | | +--------+---------+ + + + documented as of this encounter Visit Diagnoses Not on filedocumented in this encounter"
--- OUTSIDE RECORDS SUMMARY | ~2019-11-17 | XMS | Encounter Summary ---
Demographics + + + | Address | [address] | | | [place] [address] | + + + | Home Phone [...] Providers + +------+ + | Care Engraver Automatic Name | Role | Phone | [...] of this encounter Progress Notes Interface, Medical Physics Teacher In - 08/19/2005 2:05 AM PST [id number] [facility] Date: 07/24/2005 Clinic: Hematology/Oncology [...] or malignancies. 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 She still smokes 1/2 [...] are appreciated. No petechiae. Laboratory: Labs from [place]: Homocysteine 8.5 and SANIA negative. CBC: White [...] laboratory studies that have been obtained from [place], it does not appear that she has [...] that she stop taking vitamin E supplementation. Kaern Gramza, Joanna Sellers M.D. perinatal technician / HS [id number] / [id number] / [id number] / [id number] cc: Pedrito Gutierrez M.D. [facility] [address] [place] [address] FAX: [phone] Electronically signed by Lukasz Sellers 08-18-2005 01:27:53 PM documented i n this encounter Plan of Treatment Not on filedocumented as of this encounter Visit Diagnoses Not on filedocumented in this encounter"
--- OUTSIDE RECORDS SUMMARY | ~2019-11-17 | XMS | Encounter Summary ---
Demographics + + + | Address | [address] | | | [place] [address] | + + + | Home Phone [...] + + | 03/05/ | Telephone | [facility] | Alnais, | Other | | 2018 | | MEDICINE [address] [place] [address] | MD Petrona | | | | | [facility] | [address] [place] [address] | | | | | [place] [address] | [place] [address] | | | | | [phone] | [phone] | | | | | | | [...] | | | | | [place] [address] | | | | | | [phone] | | | | | | | | +--------+---------+ + + + | 12/20/ | Office | Otolaryngology | Ulysses Genao MD | | | 2019 | Visit | | [address] [place] | | | | | | [address] [place], | | | | | | [place] [address] | | | | | | [phone] | | | | | | | | +--------+---------+ + + + | 02/15/ | Office | Internal Medicine | Alanis, | | | 2019 | Visit | | MD Petrona | | | | | | [address] [place] | | | | | | [place] [address] | | | | | | [phone] | | | | | | | | +--------+---------+ + + + documented as of this encounter Visit Diagnoses + + | Diagnosis | + + | Non-intractable vomiting with nausea, unspecified vomiting type - Primary | + + documented in this encounter"
--- OUTSIDE RECORDS SUMMARY | ~2019-11-17 | XMS | Encounter Summary ---
Demographics + + + | Address | [address] | | | [place] [address] | + + + | Home Phone [...] + +------+ + | Care Client Care Consultant Name | Role | Phone | + +------+ + | Pedrito Gutierrez MD | PCP | | + +------+ + Encounter Details +--------+ + + + + | Date | Type | Department | Care Team | Description | +--------+ + + + + | 04/17/ | Telephone | [facility] Division of | Carlos Arreola, | | | 2005 | | Gastroenterology/Hep | [address] | | | | | atology [address] | | | | | [address] | [place] [address] | | | | | Mailcode: PV310 | [phone] | | | | | Physician's Sharmila | | | | | | [address] | | | | | | [place], [place] | | | | | | [address] | | | | | | [phone] | | | +--------+ + + + [...]
--- OUTSIDE RECORDS SUMMARY | ~2019-11-17 | XMS | Encounter Summary ---
Demographics + + + | Address | [address] | | | [place] [address] | + + + | Home Phone [...] Providers + +------+ + | Care Manufacturing Assembler Name | Role | Phone | [...] as of this encounter Progress Notes Interface, Oracle Specialist In - 01/03/2006 3:02 AM PDTCLINIC DATE: 11/01/2002 NEUROMUSCULAR CLINIC PRIMARY CARE PROVIDER: Pedrito Gutierrez M.D. OTHER PHYSICIAN: Issac Meeks M.D., [facility] Endocrinology. PROBLEM LIST 1. Fibromyalgia and [...] fatigue. She reportedly has begun walking with [place] crutches much of the time due to [...] Irving Pete M.D. Neurology/Neuromuscular Fellow TBD / [id number] / [id number] / [id number] / [id number] C: 11/10/2002 BRAD cc: Issac Meeks M.D. [facility] Endocrinology Pedrito Gutierrez M.D. [address] [place], [place] [id number] signed by Interface, Oracle Specialist In at 01/03/2006 3:0 2 AM PDTdocumented in this encounter Plan of Treatment Not on filedocumented as of this encounter Visit Diagnoses Not on filedocumented in this encounter
--- OUTSIDE RECORDS SUMMARY | ~2019-11-17 | XMS | Encounter Summary ---
Demographics + + + | Address | [address] | | | [place] [address] | + + + | Home Phone [...] Providers + +------+ + | Care Outpatient Interviewing Clerk Name | Role | Phone | [...] Refill Request | | 2007 | | [place] [address] | [address] | (Sucralfate) | | | | [place] Mailcode: CH4S | [facility] | | | | | [facility] | [place], [place] | | | | | and Healing, | [address] | | | | | [facility] | [phone] | | | | | Floor [place], [place] | | | | | | [address] | | | | | | [phone] | | | +--------+--------+ + + + [...]
--- OUTSIDE RECORDS SUMMARY | ~2019-11-17 | XMS | Encounter Summary ---
Demographics + + + | Address | [address] | | | [place] [address] | + + + | Home Phone [...] Providers + +------+ + | Care Senior Contracts Administrator Name | Role | Phone | [...] | | | | | [place], | | | | | | [place] [address] | | | | | | [phone] | | +--------+ + + + + [...] | | + +---------+ + + | [facility] DEPARTMENT OF | | | | | [...] | | + +---------+ + + | [facility] DEPARTMENT OF | | | | | [...] | | + +---------+ + + | [facility] DEPARTMENT OF | | | | | RADIOLOGY | | | | + +---------+ + + documented in this encounter Visit Diagnoses Not on filedocumented in this encounter"
--- OUTSIDE RECORDS SUMMARY | ~2019-11-17 | XMS | Encounter Summary ---
Demographics + + + | Address | [address] | | | [place] [address] | + + + | Home Phone [...] Providers + +------+ + | Care Electronics Inspector Name | Role | Phone | + +------+ + | Petrona Thapa | PCP | | | MD | | | + +------+ + Encounter Details +--------+ + + + + | Date | Type | Department | Care Team | Description | +--------+ + + + + | 09/15/ | [facility] | [facility] | Alanis, | Pain in right lower | | 2019 | Encounter | [facility] | MD Petrona | leg | | | | [address] [place] | [address] [facility] | | | | | [place] | [place] [address] | | | | | [address] | [phone] | | | | | [phone] | | | +--------+ + + + [...] | | | | | [place] [address] | | | | | | [phone] | | | | | | | | +--------+---------+ + + + | 12/20/ | Office | Otolaryngology | Ulysses Genao MD | | | 2019 | Visit | | [address] | | | | | | [address] [place], | | | | | | [place] [address] | | | | | | [phone] | | | | | | | | +--------+---------+ + + + | 02/15/ | Office | Internal Medicine | Alanis, | | | 2019 | Visit | | MD Petrona | | | | | | [address] [place] | | | | | | [place] [address] | | | | | | [phone] | | | | | | | [...] + | Tawanda, Ollie Results In - 09/15/2018 12:31 PM [...]
--- OUTSIDE RECORDS SUMMARY | ~2019-11-17 | XMS | Encounter Summary ---
Demographics + + + | Address | [address] | | | [place] [address] | + + + | Home Phone [...] Team Providers + +------+ + | Care Respiratory Therapist Name | Role | Phone | [...] Refill Request | | 2007 | | [place] [address] | [address] [facility] | | | | | [place] Mailcode: CH4S | Naeem [facility] | | | | | [facility] | [place], [place] | | | | | and [place], | [address] | | | | | [facility] | [phone] | | | | | Floor [place], [place] | | | | | | [address] | | | | | | [phone] | | | +--------+--------+ + + + [...]
--- OUTSIDE RECORDS SUMMARY | ~2019-11-17 | XMS | Encounter Summary ---
Demographics + + + | Address | [address] | | | [place] [address] | + + + | Home Phone [...] Providers + +------+ + | Care Staff Writer Name | Role | Phone | [...] + + | 09/02/ | Telephone | [facility] | Alanis, | Paperwork | | 2018 | | MEDICINE [address] [place] [address] | MD Petrona | | | | | [facility] | [address] [place] [address] | | | | | [place] [address] | [place] [address] | | | | | [phone] | [phone] | | | | | | | [...] | | | | | [place] [address] | | | | | | [phone] | | | | | | | | +--------+---------+ + + + | 12/20/ | Office | Otolaryngology | Ulysses Genao MD | | | 2020 | Visit | | [address] | | | | | | [address] [place], | | | | | | [place] [address] | | | | | | [phone] | | | | | | | | +--------+---------+ + + + | 02/15/ | Office | Internal Medicine | Alanis, | | | 2019 | Visit | | MD Petrona | | | | | | [address] | | | | | | [place] [address] | | | | | | [phone] | | | | | | | | +--------+---------+ + + + documented as of this encounter Visit Diagnoses Not on filedocumented in this encounter"
--- OUTSIDE RECORDS SUMMARY | ~2019-11-17 | XMS | Encounter Summary ---
[...] Providers + +------+ + | Care Precision Assembler Name | Role | Phone | [...] | Osteopenia | | 2006 | | [place] [address] | [address] [facility] | | | | | [place] Mailcode: CH4S | [address] | | | | | [facility] | [place], [place] | | | | | and Healing, | [address] | | | | | [facility] | [phone] | | | | | Floor [place], [place] | | | | | | [address] | | | | | | [phone] | | | +--------+ + + + [...]
--- OUTSIDE RECORDS SUMMARY | ~2019-11-17 | XMS | Encounter Summary ---
Demographics + + + | Address | [address] | | | [place] [address] | + + + | Home Phone [...] + +------+ + | Care Database Programmer Name | Role | Phone | [...] | | | [address] | [place] [address] | | | | | | [place], | Phone: | | | | | | [place] | [phone] | | | | | | [address] | Fax: | | | | | | Phone: | [phone] | | | | | | [phone] | | | | | | | Fax: | | | | | | | [phone] | | +--------+ + + + + + Reason for Visit + + + | Reason | Comments | + + + | Vertigo (Recurrent) | | + + + Encounter Details +--------+ + + + + | Date | Type | Department | Care Team | Description | +--------+ + + + + | 11/18/ | Telephone | [facility] | Alanis, | Vertigo (Recurrent) | | 2017 | | MEDICINE [address] [place] [address] | MD Petrona | | | | | [facility] | [address] [place] [address] | | | | | [place] [address] | [place] [address] | | | | | [phone] | [phone] | | | | | | | [...] | | | | | [place] [address] | | | | | | [phone] | | | | | | | | +--------+---------+ + + + | 12/20/ | Office | Otolaryngology | Ulysses eGnao MD | | | 2019 | Visit | | [address] | | | | | | [address] [place], | | | | | | [place] [address] | | | | | | [phone] | | | | | | | | +--------+---------+ + + + | 02/15/ | Office | Internal Medicine | Alanis, | | | 2019 | Visit | | MD Petrona | | | | | | [address] | | | | | | [place] [address] | | | | | | [phone] | | | | | | | [...]
--- OUTSIDE RECORDS SUMMARY | ~2019-11-17 | XMS | Encounter Summary ---
Demographics + + + | Address | [address] | | | [place] [address] | + + + | Home Phone [...] + +------+ + | Care Tool Setter Name | Role | Phone [...] as of this encounter Progress Notes Interface, Peoplesoft Analyst In - 12/11/2005 2:05 AM PDT [id number] GEOVANNI SKELTON J [id number] Clinic Date: 11/27/2005 Clinic: Rheumatology Primary Care [...] 6 months. Caitlin Rivera M.S., F.N.P. / [id number] / [id number] / [id number] / [id number] cc: Pedrito Gutierrez M.D. [address] [place] [address] Electronically signed by Caitlin Rivera 12-10-2005 09:27:21 AM documented i n this encounter Plan of Treatment Not on filedocumented as of this encounter Visit Diagnoses Not on filedocumented in this encounter"
--- OUTSIDE RECORDS SUMMARY | ~2019-11-17 | XMS | Encounter Summary ---
Demographics + + + | Address | [address] | | | [place] [address] | + + + | Home Phone [...] Providers + +------+ + | Care Superintendent Seed Mill Name | Role | Phone | + [...] of this encounter Progress Notes Interface, Inspector Type In - 01/12/2005 10:09 AM PDT [id number] [facility] Date: 12/25/2004 Clinic: GENERAL [...] to [facility] at fax #[phone], first 30 pills, oxycodone 5 mg to [...] the current plan. Melisa Thorne / SHARIF [id number] / [id number] / [id number] / [id number] Electronically signed by Kenisha [place] 01-01-2005 04:41:20 PM documented i n this encounter Plan of Treatment Not on filedocumented as of this encounter Visit Diagnoses Not on filedocumented in this encounter"
--- OUTSIDE RECORDS SUMMARY | ~2019-11-17 | XMS | Encounter Summary ---
Demographics + + + | Address | [address] | | | [place] [address] | + + + | Home Phone [...] Providers + +------+ + | Care Retail Project Merchandiser Name | Role | Phone | [...] + + | 05/28/ | Telephone | [facility] | Alanis, | Pain Management | | 2016 | | MEDICINE [address] [place] [address] | MD Petrona | | | | | [facility] | [address] [place] [address] | | | | | [place] [address] | [place] [address] | | | | | [phone] | [phone] | | | | | | | [...] | | | | | [place] [address] | | | | | | [phone] | | | | | | | | +--------+---------+ + + + | 12/20/ | Office | Otolaryngology | Ulysses Genao MD | | | 2019 | Visit | | [address] | | | | | | [address] [place], | | | | | | [place] [address] | | | | | | [phone] | | | | | | | | +--------+---------+ + + + | 02/15/ | Office | Internal Medicine | Alanis, | | | 2019 | Visit | | MD [place] | | | | | | [address] | | | | | | [place] [address] | | | | | | [phone] | | | | | | | | +--------+---------+ + + + documented as of this encounter Visit Diagnoses Not on filedocumented in this encounter"
--- OUTSIDE RECORDS SUMMARY | ~2019-11-17 | XMS | Encounter Summary ---
Demographics + + + | Address | [address] | | | [place] [address] | + + + | Home Phone [...] Providers + +------+ + | Care Certified Caregiver Name | Role | Phone | [...] + + | 03/17/ | Telephone | [facility] | Alanis, | TCM - Hosp FU | | 2017 | | MEDICINE [address] [place] [address] | MD Petrona | | | | | [facility] | [address] [place] [address] | | | | | [place] [address] | [place] [address] | | | | | [phone] | [phone] | | | | | | | [...] | | | | | [place] [address] | | | | | | [phone] | | | | | | | | +--------+---------+ + + + | 12/20/ | Office | Otolaryngology | Ulysses Genao MD | | | 2019 | Visit | | [address] | | | | | | [address] [place], | | | | | | [place] [address] | | | | | | [phone] | | | | | | | | +--------+---------+ + + + | 02/15/ | Office | Internal Medicine | Alanis, | | | 2019 | Visit | | MD [place] | | | | | | [address] [place] | | | | | | [place] [address] | | | | | | [phone] | | | | | | | | +--------+---------+ + + + documented as of this encounter Visit Diagnoses Not on filedocumented in this encounter"
--- OUTSIDE RECORDS SUMMARY | ~2019-11-17 | XMS | Encounter Summary ---
Demographics + + + | Address | [address] | | | [place] [address] | + + + | Home Phone [...] Providers + +------+ + | Care Assurance Manager Insurance Name | Role | Phone [...] + | 10/05/ | Telephone | [facility] | Alanis, | Injections | | 2019 | | MEDICINE [address] [place] [address] | MD Petrona | | | | | [facility] | [address] [place] [address] | | | | | [place] [address] | [place] [address] | | | | | [phone] | [phone] | | | | | | | [...] | | | | | [place] [address] | | | | | | [phone] | | | | | | | | +--------+---------+ + + + | 12/20/ | Office | Otolaryngology | Ulysses Genao MD | | | 2020 | Visit | | [address] | | | | | | [address] [place], | | | | | | [place] [address] | | | | | | [phone] | | | | | | | | +--------+---------+ + + + | 02/15/ | Office | Internal Medicine | Alanis, | | | 2019 | Visit | | MD [place]ron[place] | | | | | | [address] | | | | | | [place] [address] | | | | | | [phone] | | | | | | | | +--------+---------+ + + + documented as of this encounter Visit Diagnoses Not on filedocumented in this encounter"
--- OUTSIDE RECORDS SUMMARY | ~2019-11-17 | XMS | Encounter Summary ---
Demographics + + + | Address | [address] | | | [place] [address] | + + + | Home Phone [...] Providers + +------+ + | Care Utilities Equipment Repairer Name | Role | Phone [...] + | 06/25/ | Telephone | [facility] | Alanis, | Illness | | 2018 | | MEDICINE [address] [place] [address] | MD Petrona | | | | | [facility] | [address] [place] [address] | | | | | [place] [address] | [place] [address] | | | | | [phone] | [phone] | | | | | | | [...] | | | | | [place] [address] | | | | | | [phone] | | | | | | | | +--------+---------+ + + + | 12/20/ | Office | Otolaryngology | Ulysses Genao MD | | | 2019 | Visit | | [address] | | | | | | [address] [place], | | | | | | [place] [address] | | | | | | [phone] | | | | | | | | +--------+---------+ + + + | 02/15/ | Office | Internal Medicine | Alanis, | | | 2019 | Visit | | MD Petrona | | | | | | [address] | | | | | | [place] [address] | | | | | | [phone] | | | | | | | | +--------+---------+ + + + documented as of this encounter Visit Diagnoses Not on filedocumented in this encounter"
--- OUTSIDE RECORDS SUMMARY | ~2019-11-17 | XMS | Encounter Summary ---
Demographics + + + | Address | [address] | | | [place] [address] | + + + | Home Phone [...] Providers + +------+ + | Care Dish Carrier Name | Role | Phone | [...] as of this encounter Progress Notes Interface, Sow Manager In - 01/13/2005 9:03 AM PDT [id number] [facility] Date: 01/02/2005 Clinic: Endocrinology [...] months. Beto Meeks M.D. PD / HS [id number] / [id number] / [id number] / [id number] cc: Chris Padgett M.D. documented i n this encounter Plan of Treatment Not on filedocumented as of this encounter Visit Diagnoses Not on filedocumented in this encounter"
--- OUTSIDE RECORDS SUMMARY | ~2019-11-17 | XMS | Encounter Summary ---
Demographics + + + | Address | [address] | | | [place] [address] | + + + | Home Phone [...] Providers + +------+ + | Care Alarm Investigator Name | Role | Phone | [...] + + | 06/28/ | Office | [facility] Comprehensive | Delfina Molina, | LBP (Low Back Pain); | | 2007 | Visit | Pain Center at | ANP | Encounter for | | | | [facility] | | Long-Term (Current) | | | | [address] | | Use of Opioids; | | | | Mailcode: CH15P | | Arthroplasty of the | | | | [place] [facility] | | Left Knee; Bilateral | | | | and Healing, | | Knee Pain; 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 Epidural steroid injections are awhile call [...] be in bed so long. 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 Current outpatient medications Medication Sig Dispense Refill [...] Collection Time Resulting Agency 05/25/2007 4:06 PM [facility] DEPARTMENT OF RADIOLOGY Component Results MR [...] and addressing this area with physical therapy. eBlinda Meehan was compliant with all aspects of [...] with any concerns or questions. DELFINA MOLINA [facility] Mail code CH 4P [facility] [address] [facility] [address] Ailyn Bello 06/28/19 08 [...]
--- OUTSIDE RECORDS SUMMARY | ~2019-11-17 | XMS | Encounter Summary ---
Demographics + + + | Address | [address] | | | [place] [address] | + + + | Home Phone [...] Providers + +------+ + | Care Assistant Warehouse Manager Name | Role | Phone | + +------+ + | Pedrito Gutierrez MD | PCP | | + +------+ + Encounter Details +--------+ + + + + | Date | Type | Department | Care Team | Description | +--------+ + + + + | 03/26/ | Telephone | [facility] Division of | Carlos Arreola, | | | 2005 | | Gastroenterology/Hep | [address] | | | | | atology [address] | | | | | [address] | [place] [address] | | | | | Mailcode: PV310 | [phone] | | | | | Physician's Sharmila | | | | | | [address] | | | | | | [place], [place] | | | | | | [address] | | | | | | [phone] | | | +--------+ + + + [...]
--- OUTSIDE RECORDS SUMMARY | ~2019-11-17 | XMS | Encounter Summary ---
Demographics + + + | Address | [address] | | | [place] [address] | + + + | Home Phone [...] Providers + +------+ + | Care Special Warfare Operator Name | Role | Phone | [...] | | Procedures | [place], | [address] Phone: | | | | | OFFICE VISIT | [place] | [phone] | | | | | REGULAR | [address] | Fax: | | | | | | Phone: | [phone] | | | | | | [phone] | | | | | | | Fax: | | | | | | | [phone] | | +--------+--------+ + + + + Encounter Details +--------+---------+ + + + | Date | Type | Department | Care Team | Description | +--------+---------+ + + + | 10/18/ | Office | [facility] | Elisabet Munson, [place] | Encounter for | | 2014 | Visit | AUDIOLOGY AND | CCC-[facility] [address] | hearing evaluation | | | | [facility]ARING AID SERVICES | [address] | (Primary Dx) | | | | [address] | [place] [address] | | | | | [facility] [address] [facility] | [phone] | | | | | [place] [address] | | | | | | [phone] | | | +--------+---------+ + + + [...] | | | | [address] [facility] | | | | | | [place] [address] | | | | | | [phone] | | | | | | | | +--------+---------+ + + + | 12/20/ | Office | Otolaryngology | Ulysses Genao MD | | | 2019 | Visit | | [address] | | | | | | [address] [place], | | | | | | [place] [address] | | | | | | [phone] | | | | | | | | +--------+---------+ + + + | 02/15/ | Office | Internal Medicine | EmmyCarmen, | | | 2019 | Visit | | MD [place] | | | | | | [address] | | | | | | [place] [address] | | | | | | [phone] | | | | | | | [...]
--- OUTSIDE RECORDS SUMMARY | ~2019-11-17 | XMS | Encounter Summary ---
Demographics + + + | Address | [address] | | | [place] [address] | + + + | Home Phone [...] + | 03/05/ | Telephone | [facility] | Alanis, | Other | | 2018 | | MEDICINE [address] [place] [address] | MD [place] | | | | | [facility] | [address] [place] [address] | | | | | [place] [address] | [place] [address] | | | | | [phone] | [phone] | | | | | | | [...] | | | | | [place] [address] | | | | | | [phone] | | | | | | | | +--------+---------+ + + + | 12/20/ | Office | Otolaryngology | Ulysses Genao MD | | | 2019 | Visit | | [address] [place] | | | | | | [address] [place], | | | | | | [place] [address] | | | | | | [phone] | | | | | | | | +--------+---------+ + + + | 02/15/ | Office | Internal Medicine | Alanis, | | | 2019 | Visit | | MD [place] | | | | | | [address] [place] | | | | | | [place] [address] | | | | | | [phone] | | | | | | | | +--------+---------+ + + + documented as of this encounter Visit Diagnoses + + | Diagnosis | + + | Non-intractable vomiting with nausea, unspecified vomiting type - Primary | + + documented in this encounter"
--- OUTSIDE RECORDS SUMMARY | ~2019-11-17 | XMS | Encounter Summary ---
Demographics + + + | Address | [address] | | | [place] [address] | + + + | Home Phone [...] Providers + +------+ + | Care Non Cdl Driver Name | Role | Phone [...] + + | 04/25/ | Refill | [facility] | Alanis, | Medication Refill | | 2016 | | MEDICINE [address] [place] [address] | MD [place] | | | | | [facility] | [address] [place] [address] | | | | | [place] [address] | [place] [address] | | | | | [phone] | [phone] | | | | | | | [...] | | | | | [place] [address] | | | | | | [phone] | | | | | | | | +--------+---------+ + + + | 12/20/ | Office | Otolaryngology | Ulysses Genao MD | | | 2019 | Visit | | [address] [place] | | | | | | [address] [place], | | | | | | [place] [address] | | | | | | [phone] | | | | | | | | +--------+---------+ + + + | 02/15/ | Office | Internal Medicine | Alanis, | | | 2019 | Visit | | MD [place] | | | | | | [address] [place] [address] [place] | | | | | | [place] [address] | | | | | | [phone] | | | | | | | | +--------+---------+ + + + documented as of this encounter Visit Diagnoses Not on filedocumented in this encounter"
--- OUTSIDE RECORDS SUMMARY | ~2019-11-17 | XMS | Encounter Summary ---
Demographics + + + | Address | [address] | | | [place] [address] | + + + | Home Phone [...] Providers + +------+ + | Care Yard Coordinator Name | Role | Phone | [...] [facility] | Alanis, | Pressure injury of | | 2017 | Visit | MEDICINE [address] | MD [place] | right buttock, stage | | | | [facility] | [address] [place] [address] | 1 (Primary Dx); [address] | | | | [place] [address] | [place] [address] | (obstructive sleep | | | | [phone] | [phone] | apnea); Lower leg | | | [...] Osteoporosis Peripheral neuropathy Rheumatoid arthritis ([facility] [...] (See Comments) Confused and questionable for seizures Vieiyryezo-Hnru-Zzbpkivt Hives and Rash Cephalexin Hives Ciprofloxacin Hives [...] like to check with a provider in [place] which is closer to her home for [...] Note: Parts of this documentwere created using [employer] speech recognition software. As a r esult, [...] | | | | | [place], [place] [address] | | | | | | [phone] | | | | | | | | +--------+---------+ + + + | 12/20/ | Office | Otolaryngology | Ulysses Genao MD | | | 2019 | Visit | | [address] [place] | | | | | | [address] [place], | | | | | | [place] [address] | | | | | | [phone] | | | | | | | | +--------+---------+ + + + | 02/15/ | Office | Internal Medicine | Alanis, | | | 2019 | Visit | | MD [place] | | | | | | [address] [place] | | | | | | [place] [address] | | | | | | [phone] | | | | | | | [...]
--- OUTSIDE RECORDS SUMMARY | ~2019-11-17 | XMS | Encounter Summary ---
Demographics + + + | Address | [address] | | | [place] [address] | + + + | Home Phone [...] Physical | Diagnoses | [place] | [facility] | | | Services | Therapy | [...] | | | | | laterality | [address] | [address] | | | | | Dysfunction | Phone: | Phone: | | | | | of left | [phone] | [phone] | | | | | eustachian | Fax: | Fax: | | | | | tube | [phone] | [phone] | +--------+ + + + + + [...] [place], | unspecified | | | | [place], [place] | [place] [address] | laterality (Primary | | | | [address] | [phone] | Dx); Dysfunction of | | | | [phone] | | left eustachian tube | +--------+ [...] | | | | | [place] [address] | | | | | | [phone] | | | | | | | | +--------+---------+ + + + | 12/20/ | Office | Otolaryngology | Ulysses Genao MD | | | 2019 | Visit | | [address] [place] | | | | | | [address] [place], | | | | | | [place] [address] | | | | | | [phone] | | | | | | | | +--------+---------+ + + + | 02/15/ | Office | Internal Medicine | Alanis, | | | 2019 | Visit | | MD [place] | | | | | | [address] [place] | | | | | | [place] [address] | | | | | | [phone] | | | | | | | | +--------+---------+ + + + + + +--------+ + + | Name | Type | Priori | Associated Diagnoses | Order Schedule | | | | ty | | | + + +--------+ + + | * [facility] | Outpatient | Routin | [...]
--- OUTSIDE RECORDS SUMMARY | ~2019-11-17 | XMS | Encounter Summary ---
Demographics + + + | Address | [address] | | | [place] [address] | + + + | Home Phone [...] Providers + +------+ + | Care Sign Maker Name | Role | Phone | [...] of this encounter Progress Notes Interface, Quality Systems Technician In - 08/19/2005 2:05 AM PST [id number] GEOVANNI [facility] Date: 07/24/2005 Clinic: Hematology [...] full and complete summary. Lukasz Sellers M.D. layboy operator NANCY / SHARIF [id number] / [id number] / [id number] / [id number] cc: Pedrito Gutierrez M.D. [address] [place] [address] Electronically signed by Lukasz Sellers 08-18-2005 01:28:24 PM documented i n this encounter Plan of Treatment Not on filedocumented as of this encounter Visit Diagnoses Not on filedocumented in this encounter"
--- OUTSIDE RECORDS SUMMARY | ~2019-11-17 | XMS | Encounter Summary ---
Demographics + + + | Address | [address] | | | [place] [address] | + + + | Home Phone [...] Providers + +------+ + | Care Staff Research Associate Name | Role | Phone [...] + + | 11/23/ | Office | [facility] Comprehensive | Delfina Molina, | [...] Encounter for | | | | Floor [place], [place] | | Long-Term (Current) | | | | [address] | | Use of Opioids; | | | | [phone] | | Major Depressive | | | [...] Belinda Meehan is a 47 y.o. female [facility] Pain [facility] Return Visit [...] has be completed, which I reviewed. [facility] Brief Pain Inventory: Right Now: 9 [...] Result Impression NAME: BELINDA MEEHAN MR #: [id number] DATE OF EXAM: [id number] PHYSICIAN: EMMA ROJAS [...] DISK BULGE. Transcribed By: Armaan Mata : [id number] : 1442 Approved By: Radiologist: Physical Examination: [...] Nathalia Arora PT here at the [facility] to address her [...] vs Hernia. 6. PT here at the [facility] available 7. Repeat TESI as needed. DELFINA MOLINA [facility] Mail code CH 4P [facility] and [address] [address] JasenTy montilla - 9:12 AM [...]
--- OUTSIDE RECORDS SUMMARY | ~2019-11-17 | XMS | Encounter Summary ---
Demographics + + + | Address | [address] | | | [place] [address] | + + + | Home Phone [...] Providers + +------+ + | Care Informatics Physician Name | Role | Phone [...] of this encounter Progress Notes Interface, Senior Maintenance Mechanic In - 07/03/2006 2:33 AM PST [id number] GEOVANNI SKELTON J [id number] Clinic Date: 06/24/2006 Clinic: Rheumatology Subjective: Belinda Meehan is a 46-year-old woman here for followup of fibromyalgia. She comes from [place] and is now also working with the [...] I will have a meeting soon with [facility] to start doing my films [...] 2 months. Caitlin Rivera M.S., F.N.P. / [id number] / [id number] / [id number] / [id number] cc: [facility] Electronically signed by Caitlin Rivera 07-02-2006 11:27:56 AM documented in this encounter Plan of Treatment Not on filedocumented as of this encounter Visit Diagnoses Not on filedocumented in this encounter"
--- OUTSIDE RECORDS SUMMARY | ~2019-11-17 | XMS | Encounter Summary ---
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 Diagnosis: [place] I: 1. (296.32) Major depressive disorder, recurrent, moderate. 2. (309.24) Adjustment disorder with anxiety. 3. 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 [place] II: Deferred [place] III: abdominal pain, migraine headache, low back pain. [place] IV: low finances [place] V: GAF 50 Plan: Return in 2 weeks. Schedule 4 follow-up appointments. Check preparation for move and for niece's visit. Check [employer], pacing, relaxation, activity, distraction. Check "Managin g Pain..." book. Continue cognitive/behavioral therapy. Total time spent with patient was approximately 45 minutes. LUKASZ CHARLES PHD [facility] [address] [facility] [place] [address] documented in this encount er Plan of [...] | | | | ([facility]) Spondylosis | | | | [...]
--- OUTSIDE RECORDS SUMMARY | ~2019-11-17 | XMS | Encounter Summary ---
Demographics + + + | Address | [address] | | | [place] [address] | + + + | Home Phone [...] CH4S | | | | | | [facility] | | | | | | and Healing, | | | | | | Building [address]th | | | | | | Floor [place], [place] | | | | | | [address] | | | | | | [phone] | | | +--------+ + + + [...]
--- OUTSIDE RECORDS SUMMARY | ~2019-11-17 | XMS | Encounter Summary ---
Demographics + + + | Address | [address] | | | [place] [address] | + + + | Home Phone [...] Team Providers + +------+ + | Care Dice Table Operator Name | Role | Phone [...] | Osteopenia | | 2006 | | [place] [address] | [address] [facility] | | | | | [place] Mailcode: CH4S | [address] | | | | | [facility] | [place], [place] | | | | | and Healing, | [address] | | | | | [facility] | [phone] | | | | | Floor [place], [place] | | | | | | [address] | | | | | | [phone] | | | +--------+ + + + [...]
--- OUTSIDE RECORDS SUMMARY | ~2019-11-17 | XMS | Encounter Summary ---
Demographics + + + | Address | [address] | | | [place] [address] | + + + | Home Phone [...] Team Providers + +------+ + | Care Mohs Surgeon/General Dermatologist Name | Role | Phone | + [...] Services | Therapy | Acute pain | [facility] | | | Required | | of right | Eliud, | PHYSICAL | | | | | shoulder | [address] | THERAPY [address] | | | | | Tear of | [address] | [place] | | | | | right | [place], | [place], [place] | | | | | supraspinatu | [place] | [address] | | | | | s tendon, | [address] | Phone: | | | | | initial | Phone: | [phone] | | | | | encounter | [phone] | Fax: | | | | | | Fax: | [phone] | | | | | | [phone] | | +--------+ + + + + [...] | | right | [address] | [address] Phone: | | | | | supraspinatu | [place], | [phone] | | | | | s tendon, | [place] | Fax: | | | | | initial | [address] | [phone] | | | | | encounter | Phone: | | | | | | | [phone] | | | | | | | Fax: | | | | | | | [phone] | | +--------+ + + + + + Encounter Details +--------+---------+ + + + | Date | Type | Department | Care Team | Description | +--------+---------+ + + + | 02/23/ | Office | [facility] | Lc Vail | Acute pain of right | | 2018 | Visit | ORTHOPEDIC SURGERY | MD [address] | shoulder; Tear of | | | | [address] [facility] | [facility] | right supraspinatus | | | | [place] | [place] [address] | tendon, initial | | | | [address] | [phone] | encounter | | | | [phone] | | | +--------+---------+ + + + [...] the shoulder. Try to hold the stretch [id number]. 3. Work up to hslod5xalx of this stretch,3times a day. Work up [...] ask your healthcare provider. Date Last Reviewed: 07/16/201719992997-4904 [employer]. [address] [place] [address], [place] [address]. All righ ts reserved. This information is not intended as a substitute for professional medical care. Always follow your healthcare professional's instructions. documented in this encounter Progress Notes Lc Vail MD - 02/23/2018 1:30 PM PDTFormatting of this note might be different fro m the original. [facility] HISTORY AND PHYSICAL EXAMINATION Pt. [...] worse as time goes on. She quit [employer] in 2013. Past Medical History: Past [...] Procedure: COLONOSCOPY; Surgeon: Luther Brito MD; Location: [facility] MEDICAL PROCEDURE UNIT DILATION AND CURETTAGE OF UTERUS ELBOW SURGERY FINGER TRIGGER RELEASE 2002 FINGER TRIGGER RELEASE 2009 GASTRIC BYPASS SURGERY 2004 HYSTERECTOMY 05/14/1980 JOINT REPLACEMENT Bilateral 2007,2008 KNEE ARTHROSCOPY 2005 LAPAROSCOPY 01/27/2015 LAPAROTOMY 2008 ROTATOR CUFF REPAIR 2005 SPINE SURGERY TONSILLECTOMY 1964 UPPER GASTROINTESTINAL ENDOSCOPY N/A 12/18/2017 Procedure: EGD; Surgeon: Luther Brito MD; Location: [facility] MEDICAL PROCEDURE UNIT Allergies: Allergies Allergen Reactions Codeine Sulfate Nausea Only Levofloxacin Hives, Itching and Rash Amitriptyline Hcl Other (See Comments) Confused and questionable for seizures Zvdzgzfkgv-Kvau-Csbrcpfs Hives and Rash Cephalexin Hives Ciprofloxacin Hives [...] 1. Acute pain of right shoulder * [facility] Physical Therapy - AMB Referral triamcinolone acetonide (KENALOG-40) 40 mg/mL injection 40 mg 2. Tear of right supraspinatus tendon, initial encounter * [facility] Physical Therapy - AMB Refe rral [...] injection. She is very symptomatic at the [facility] ent and states that she has [...] made to ensure accuracy; however, inadvertent computerized lamination inspector errors may be pre sent. I appreciate the opportunity to help with the management of this patient. Lc Vail MD [facility] umented in this encounter Plan of [...] | | | | | [place] [address] | | | | | | [phone] | | | | | | | | +--------+---------+ + + + | 12/20/ | Office | Otolaryngology | Ulysses Genao MD | | | 2019 | Visit | | [address] | | | | | | [address] [place], | | | | | | [place] [address] | | | | | | [phone] | | | | | | | | +--------+---------+ + + + | 02/15/ | Office | Internal Medicine | Alanis, | | | 2019 | Visit | | MD [place] | | | | | | [address] [place] | | | | | | [place] [address] | | | | | | [phone] | | | | | | | [...]
--- OUTSIDE RECORDS SUMMARY | ~2019-11-17 | XMS | Encounter Summary ---
Demographics + + + | Address | [address] | | | [place] [address] | + + + | Home Phone [...] Providers + +------+ + | Care Spinning Lathe Operator Hydraulic Name | Role | Phone | + [...] | | | | | elsewhere | [place], [place] | [place], [place] | | | | | classified | [address] | [address] | | | | | Procedures | | Phone: | | | | | [place] | | [phone] | | | | | PSYCHOTHERPY | | Fax: | | | | | , OFFICE | | [phone] | | | | | (30-70) | | | +--------+--------+ + + + + Encounter Details +--------+---------+ + + + | Date | Type | Department | Care Team | Description | +--------+---------+ + + + | 07/15/ | Office | [facility] at [facility] | Lukasz Charles, | Major Depressive | | 2006 | Visit | [address] | PhD [address] | Disorder, Recurrent | | | | Mailcode: CH15P | [place], [place] | Episode, Moderate | | | | [facility] | [address] | ([facility]); Cervical | | | | and Healing, | [phone] | Spondylosis without | | | | Building | | Myelopathy; Migraine | | | | Floor [place], [place] | | Headache; | | | | [address] | | Adjustment Disorder | | | | [phone] | | with Anxiety | +--------+---------+ + [...] She appears to have good insight. Diagnosis: [place] I: 1. (296.32) Major depressive disorder, recurrent, moderate. 2. (309.24) Adjustment disorder with anxiety. 3. 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 [place] II: Deferred [place] III: abdominal pain, migraine headache, low back pain. [place] IV: low finances [place] V: GAF 50 Plan: Return in 2 weeks. Check relaxation and activity. Check mood. Continue cognitive/behavio ral therapy. Total time spent with patient was approximately 50 minutes. LUKASZ CHARLES PHD [facility] [address] [place] [address] And [facility], [address]th [place] [address] documented in this [facility] Plan of Treatment + + +--------+ [...] | | | | | ([facility]) Cervical | | | | | | Spondylosis without | | | | | | Myelopathy Migraine | | | | | | Headache | | | | | | Adjustment Disorder | | | | | | with Anxiety | | + + +--------+ + + | [place] BIOFEEDBACK | Procedures | Routin | Cervical [...]
--- OUTSIDE RECORDS SUMMARY | ~2019-11-17 | XMS | Encounter Summary ---
Demographics + + + | Address | [address] | | | [place] [address] | + + + | Home Phone [...] Team Providers + +------+ + | Care Star Route Mail Driver Name | Role | Phone | + +------+ + PCP | Unavailable | + +------+ + Encounter Details +--------+ + + + + | Date | Type | Department | Care Team | Description | +--------+ + + + + | 07/04/ | Office | Endocrinology, | Beto Meeks MD | | | 2005 | Visit-ECX | Diabetes and | [address] | | | | | Clinical Nutrition | [place], [place] | | | | | [address] | [address] | | | | | Loop Mailcode: OPC5 | [phone] | | | | | Outpatient Clinic | | | | | | [facility] | | | | | | [place] [address] | | | | | | [phone] | | | +--------+ + + + [...]
--- OUTSIDE RECORDS SUMMARY | ~2019-11-17 | XMS | Encounter Summary ---
Demographics + + + | Address | [address] | | | [place] [address] | + + + | Home Phone [...] Providers + +------+ + | Care Psychology Physician Name | Role | Phone | [...] + | 07/19/ | Refill | [facility] | Alanis, | Medication Refill | | 2019 | | MEDICINE [address] | MD Petrona | | | | | [facility] | [address] [place] [address] | | | | | [place] [address] | [place] [address] | | | | | [phone] | [phone] | | | | | | | [...] | | | | | [place] [address] | | | | | | [phone] | | | | | | | | +--------+---------+ + + + | 12/20/ | Office | Otolaryngology | Ulysses Genao MD | | | 2019 | Visit | | [address] [place] | | | | | | [address] [place], | | | | | | [place] [address] | | | | | | [phone] | | | | | | | | +--------+---------+ + + + | 02/15/ | Office | Internal Medicine | Alanis, | | | 2019 | Visit | | MD Petrona | | | | | | [address] [place] [address] [place] [address] | | | | | | [place] [address] | | | | | | [phone] | | | | | | | | +--------+---------+ + + + documented as of this encounter Visit Diagnoses Not on filedocumented in this encounter"
--- OUTSIDE RECORDS SUMMARY | ~2019-11-17 | XMS | Encounter Summary ---
Demographics + + + | Address | [address] | | | [place] [address] [...] Providers + +------+ + | Care Pressure Tank Operator Name | Role | Phone [...] + + | 08/28/ | Office | [facility] Comprehensive | Delfina Lambert, | Neck Pain; Radicular | | 2008 | Visit | Pain Center at | ANP | Pain in Left Arm; | | | | [facility] | | Fibromyalgia; | | | | [address] | | Chronic Bilateral | | | | Mailcode: CH15P | | Shoulder Pain; | | | | [facility] | | Coccydynia; LBP (Low | | | | and Healing, | | Back Pain); | | | | Building | | Adjustment Disorder | | | | Floor [place], [place] | | with Anxiety; Major | | | | [address] | | Depressive Disorder, | | | | [phone] | | Recurrent Episode, | | | [...] Belinda Meehan is a 48 y.o. female [facility] Pain [...] drawing has be completed, which I reviewed. [facility] Brief Pain Inventory: (ten= worst possible pain [...] 278 01/18 Paniculectomy Hx lumbar fusion 05/2008 L5-N4xjpeqh with bone spur removals Family History Problem [...] MRI results reviewd with patient DELFINA BUNDY [facility] Mail code CH 4P [place] for [facility] and [address] [address] Ty Omalley - 08/13 3:00 [...] 12 tablets per day. documented in this [facility] Plan of Treatment Not on filedocumented [...]
--- OUTSIDE RECORDS SUMMARY | ~2019-11-17 | XMS | Encounter Summary ---
Demographics + + + | Address | [address] | | | [place] [address] | + + + | Home Phone [...] Providers + +------+ + | Care Television Agent Name | Role | Phone | [...] [id number] | | | | | | [place], [place] | | | | | | [address] | | | | | | [phone] | | | +--------+--------+ + + + [...]
--- OUTSIDE RECORDS SUMMARY | ~2019-11-17 | XMS | Encounter Summary ---
Demographics + + + | Address | [address] | | | [place] [address] | + + + | Home Phone [...] Providers + +------+ + | Care Psychiatric Therapist Name | Role | Phone | [...] + + | 03/02/ | Telephone | [facility] | Alanis, | Results, Imaging | | 2017 | | MEDICINE [address] | MD Petrona | | | | | [facility] | [address] [place] [address] | | | | | [place] [address] | [place] [address] | | | | | [phone] | [phone] | | | | | | | [...] | | | | | [place] [address] | | | | | | [phone] | | | | | | | | +--------+---------+ + + + | 12/20/ | Office | Otolaryngology | Ulysses Genao MD | | | 2019 | Visit | | [address] [place] | | | | | | [address] [place], | | | | | | [place] [address] | | | | | | [phone] | | | | | | | | +--------+---------+ + + + | 02/15/ | Office | Internal Medicine | Alanis, | | | 2019 | Visit | | MD Petrona | | | | | | [address] [place] [address] [address] | | | | | | [place] [address] | | | | | | [phone] | | | | | | | | +--------+---------+ + + + documented as of this encounter Visit Diagnoses Not on filedocumented in this encounter"
--- OUTSIDE RECORDS SUMMARY | ~2019-11-17 | XMS | Encounter Summary ---
Demographics + + + | Address | [address] | | | [place] [address] | + + + | Home Phone [...] Team Providers + +------+ + | Care Plow Shaker Name | Role | Phone | + [...] | | unspecified | [place], [place] | [address] | | | | | laterality | [address] | Phone: | | | | | | Phone: | [phone] | | | | | | [phone] | Fax: | | | | | | Fax: | [phone] | | | | | | [phone] | | +--------+ + + + + [...] [place], | unspecified | | | | [place], [place] | [place] [address] | laterality (Primary | | | | [address] | [phone] | Dx) | | | | [phone] | | | +--------+ + + + [...] | | | | | [place], [place] [address] | | | | | | [phone] | | | | | | | | +--------+---------+ + + + | 12/20/ | Office | Otolaryngology | Ulysses Genao MD | | | 2019 | Visit | | [address] [place] | | | | | | [address] [place], | | | | | | [place] [address] | | | | | | [phone] | | | | | | | | +--------+---------+ + + + | 02/15/ | Office | Internal Medicine | Alanis, | | | 2019 | Visit | | MD Petrona | | | | | | [address] [place] | | | | | | [place] [address] | | | | | | [phone] | | | | | | | | +--------+---------+ + + + + + +--------+ + + | Name | Type | Priori | Associated Diagnoses | Order Schedule | | | | ty | | | + + +--------+ + + | * [facility] | Outpatient | Routin | [...]
--- OUTSIDE RECORDS SUMMARY | ~2019-11-17 | XMS | Encounter Summary ---
Demographics + + + | Address | [address] | | | [place] [address] | + + + | Home Phone [...] Organization | [facility] | | | [...] Team Providers + +------+ + | Care Horseradish Maker Name | Role | Phone | [...] + + | 02/22/ | Refill | [facility] | Alanis, | Medication Refill | | 2017 | | MEDICINE [address] [place] [address] | MD Petrona | | | | | [facility] | [address] [place] [address] | | | | | [place] [address] | [place] [address] | | | | | [phone] | [phone] | | | | | | | [...] | | | | | [place] [address] | | | | | | [phone] | | | | | | | | +--------+---------+ + + + | 12/20/ | Office | Otolaryngology | Ulysses Genao MD | | | 2019 | Visit | | [address] [place] | | | | | | [address] [place], | | | | | | [place] [address] | | | | | | [phone] | | | | | | | | +--------+---------+ + + + | 02/15/ | Office | Internal Medicine | Alanis, | | | 2019 | Visit | | MD Petrona | | | | | | [address] [place] [address] [address] | | | | | | [place] [address] | | | | | | [phone] | | | | | | | | +--------+---------+ + + + documented as of this encounter Visit Diagnoses Not on filedocumented in this encounter"
--- OUTSIDE RECORDS SUMMARY | ~2019-11-17 | XMS | Encounter Summary ---
Demographics + + + | Address | [address] | | | [place] [address] | + + + | Home Phone [...] Providers + +------+ + | Care Admissions Officer Name | Role | Phone | [...] | Services | Therapy | Other | [facility] | HOSPITAL | | | Required | | idiopathic | i, | PHYSICAL | | | | | scoliosis, | [facility] | THERAPY [address] | | | | | lumbar | , [address] | [place] | | | | | region | [address] | [place], [place] | | | | | Chronic | [place], | [address] | | | | | bilateral | [place] | Phone: | | | | | low back | [address] | [phone] | | | | | pain with | Phone: | Fax: | | | | | bilateral | [phone] | [phone] | | | | | sciatica | Fax: | | | | | | Procedures | [phone] | | | | | | 07/20 [...] + + | 07/18/ | Office | [facility] | Alanis, | Chronic bilateral | | 2020 | Visit | MEDICINE [address] [place] [address] | MD Petrona | low back pain with | | | | Street [address] | [address] [facility] | bilateral sciatica | | | | [place] [address] | [place] [address] | (Primary Dx); Other | | | | 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 | | | | | [...] issues: Patient recently did an MRI in [place], [place], after which she had a steroid [...] Allergen Reactions Ensure Diarrhea Food Diarrhea Lactose Psyyhkreva-Oix-Giqx-Codeine Other (See Comments) Balance problems Codeine Sulfate Nausea Only Food Allergy Formula Diarrhea Ensure Levofloxacin Hives, Itching and Rash Butalbital Ropinirole Amitriptyline Hcl Other (See Comments) Confused and questionable for seizures Uzrwltiflf-Djpl-Wynkaxzy Rash duplicate Vodjpyuurf-Xfqg-Oiefeqkx Hives and Rash Cephalexin Hives Ciprofloxacin Hives and Rash Clarithromycin Hives and Rash Clindamycin Hcl Hives and Rash Doxycycline Rash Duloxetine Other (See Comments) Migraines and nausea Ketorolac Hives Levofloxacin Hives and Rash Morphine Swelling Penicillins Hives and Rash Ropinirole Hcl Hives Sulfamethoxazole-Trimethoprim Hives and Rash Tramadol Hcl Nausea Only FOLLOW-UP No follow-ups on file. Notes: 1. Parts of this documentwere created using [employer] speech recognition software. As a resu lt, [...] | | | | | [place] [address] | | | | | | [phone] | | | | | | | | +--------+---------+ + + + | 12/20/ | Office | Otolaryngology | Ulysses Genao MD | | | 2019 | Visit | | [address] [place] | | | | | | [address] [place], | | | | | | [place] [address] | | | | | | [phone] | | | | | | | | +--------+---------+ + + + | 02/15/ | Office | Internal Medicine | Alanis, | | | 2019 | Visit | | MD Petrona | | | | | | [address] [place] | | | | | | [place] [address] | | | | | | [phone] | | | | | | | [...] | | | | uIU/mL | [facility] | | | | | | MEDICAL [...] [address] | [place] | [phone] | | [facility] | | [address] | | | - LABORATORY | | [...]
--- OUTSIDE RECORDS SUMMARY | ~2019-11-17 | XMS | Encounter Summary ---
Demographics + + + | Address | [address] | | | [place] [address] | + + + | Home Phone [...] Providers + +------+ + | Care Rehabilitation Specialist Name | Role | Phone | [...]
--- OUTSIDE RECORDS SUMMARY | ~2019-11-17 | XMS | Encounter Summary ---
Demographics + + + | Address | [address] | | | [place] [address] | + + + | Home Phone [...] | 03/29/ | Telephone | [facility] | Alanis, | Medication Prior | | 2017 | | MEDICINE [address] [place] [address] | MD Petrona | Authorization | | | | [facility] | [address] [place] [address] | (Gabapentin ) | | | | [place] [address] | [place] [address] | | | | | [phone] | [phone] | | | | | | | [...] | | | | | [place] [address] | | | | | | [phone] | | | | | | | | +--------+---------+ + + + | 12/20/ | Office | Otolaryngology | Ulysses Genao MD | | | 2019 | Visit | | [address] [place] | | | | | | [address] [place], | | | | | | [place] [address] | | | | | | [phone] | | | | | | | | +--------+---------+ + + + | 02/15/ | Office | Internal Medicine | Alanis, | | | 2019 | Visit | | MD Petrona | | | | | | [address] | | | | | | [place] [address] | | | | | | [phone] | | | | | | | | +--------+---------+ + + + documented as of this encounter Visit Diagnoses Not on filedocumented in this encounter"
--- OUTSIDE RECORDS SUMMARY | ~2019-11-17 | XMS | Encounter Summary ---
Demographics + + + | Address | [address] | | | [place] [address] | + + + | Home Phone [...] Team Providers + +------+ + | Care Vibrator Operator Name | Role | Phone | [...] of this encounter Progress Notes Interface, Assembly Supervisor In - 07/09/2005 2:07 AM PST [id number] [facility] Date: 07/03/2005 Clinic: Ms. [...] this operation. Chris Padgett M.D. ROSA / [id number] / [id number] / [id number] / [id number] Electronically signed by Chris Padgett 07-08-2005 01:45:20 PM documented i n this encounter Plan of Treatment Not on filedocumented as of this encounter Visit Diagnoses Not on filedocumented in this encounter"
--- OUTSIDE RECORDS SUMMARY | ~2019-11-17 | XMS | Encounter Summary ---
Demographics + + + | Address | [address] | | | [place] [address] | + + + | Home Phone [...] Providers + +------+ + | Care Garbage Truck Driver Name | Role | Phone [...] | | | 2004 | Registratio | [facility] | [address] | | | | n | [place] Mailcode: RPB07 | [place], [place] | | | | | [place], [place] | [address] | | | | | [address] | [phone] | | | | | [phone] | | | +--------+ + + + [...] + + | [facility] | [address] | [place] [address] | | | LABORATORY | | | [...] [facility] | [address] | [place] [address] | | | PATHOLOGY | [address] | | | + + + + + | [facility] | [address] | [place] [address] | | | PATHOLOGY | [address] [...] [facility] DE[facility] | [address] | [place] [address] | | | PATHOLOGY | [address] | | | + + + + + | [facility] DEPARTMENT OF | [address] | [place] [address] | | | PATHOLOGY | [address] [...] DEPARTMENT OF | [address] | [place] [address] | | | PATHOLOGY | [address] | | | + + + + + | [facility] DEPARTMENT OF | [address] | [place] [address] | | | PATHOLOGY | [address] | | | + + + + + documented in this encounter Visit Diagnoses Not on filedocumented in this encounter"
--- OUTSIDE RECORDS SUMMARY | ~2019-11-17 | XMS | Encounter Summary ---
Demographics + + + | Address | [address] | | | [place] [address] | + + + | Home Phone [...] | | | | | Encounter | [place] | [place] | | | | | for | [address] | [address] | | | | | long-term | | Phone: | | | | | (current) | | [phone] | | | | | use of other | | Fax: | | | | | medications | | [phone] | | | | | LBP (low [...] 04/21/ | Office | [facility] Center at [facility] | Lukasz Charles, | Major depressive | | 2012 | Visit | [address] | PhD [address] | disorder, recurrent | | | | Mailcode: CH15P | [place], [place] | episode, moderate | | | | Echo for [facility] | [address] | ([facility]) (Primary Dx); | | | | and Healing, | [phone] | LBP (low back pain); | | | | | | Fibromyalgia; | | | | Floor [place], [place] | | Adjustment disorder | | | | [address] | | with anxiety | | | | [phone] | | | +--------+---------+ + + + [...] provider who recommended that she return to [facility] for pain assessment and treatment. She [...] some changes in her living situation. Diagnosis: Ripton I: 1. (296.32) Major depressive disorder, recurrent, moderate. 2. (309.24) Adjustment disorder with anxiety. Ripton II: Deferred Ripton III: abdominal pain, migraine headache, low back pain, fibromyalgia. Ripton IV: low finances Ripton V: GAF 55-60 Plan: return in 1 month. Check mood, pain, activity. Ask about visiting with Dr. Montero, spinal cord stimulator, any changes at home. Continue cognitive/behavioral therapy. Total time spent with patient was approximately 50 minutes. LUKASZ CHARLES PHD [facility] [address] [place] [address] [place] [address] documented in this en counter Plan of [...]
--- OUTSIDE RECORDS SUMMARY | ~2019-11-17 | XMS | Encounter Summary ---
Demographics + + + | Address | [address] | | | [place] [address] | + + + | Home Phone [...] Providers + +------+ + | Care Manager Route Name | Role | Phone | + [...] pneumonia, | | | | Avjennifer Mailcode: [facility] | [address] | wants to get back on | | | | [facility] | [place], [place] | vitamins) | | | | and Healing, | [address] | | | | | [place] [address] [facility] | [phone] | | | | | Floor [place], [place] | | | | | | [address] | | | | | | [phone] | | | +--------+ + + + [...]
--- OUTSIDE RECORDS SUMMARY | ~2019-11-17 | XMS | Encounter Summary ---
[...] Providers + +------+ + | Care Hand Folder Name | Role | Phone | [...] + + | 11/23/ | Telephone | [facility] | Luther Brito MD | Other | | 2018 | | GASTROENTEROLOGY | [address] [facility] | | | | | [address] [facility] | [place], [place] | | | | | [address] [place], [place] | [address] | | | | | [address] | [phone] | | | | | [phone] | | | +--------+ + + + [...] | | | | | [place] [address] | | | | | | [phone] | | | | | | | | +--------+---------+ + + + | 12/20/ | Office | Otolaryngology | Ulysses Genao MD | | | 2019 | Visit | | [address] | | | | | | [address] [place], | | | | | | [place] [address] | | | | | | [phone] | | | | | | | | +--------+---------+ + + + | 09/03/ | Office | Internal Medicine | Alanis, | | | 2019 | Visit | | MD Petrona | | | | | | [address] [place] | | | | | | [place] [address] | | | | | | [phone] | | | | | | | | +--------+---------+ + + + documented as of this encounter Visit Diagnoses Not on filedocumented in this encounter"
--- OUTSIDE RECORDS SUMMARY | ~2019-11-17 | XMS | Encounter Summary ---
Demographics + + + | Address | [address] | | | [place] [address] | + + + | Home Phone [...] Providers + +------+ + | Care Multimedia Programmer Name | Role | Phone | + +------+ + | Maria Esther Cintron MD | PCP | | + +------+ + Encounter Details +--------+ + + + + | Date | Type | Department | Care Team | Description | +--------+ + + + + | 02/16/ | Telephone | [facility] | Chris Padgett, | | | 2007 | | Portal [address] | [address] [facility] | | | | | Bethanie Mailcode: CH4S | [address] | | | | | [facility] | [place], [place] | | | | | and Healing, | [address] | | | | | Building , 6th | [phone] | | | | | Floor [place], [place] | | | | | | [address] | | | | | | [phone] | | | +--------+ + + + [...]
--- OUTSIDE RECORDS SUMMARY | ~2019-11-17 | XMS | Encounter Summary ---
Demographics + + + | Address | [address] | | | [place] [address] | + + + | Home Phone [...] Providers + +------+ + | Care Lead Auditor Name | Role | Phone | [...] Required | | | i, | [address] | | | | | osteoporosis | [address] | [place], | | | | | without | , MD [address] | [place] [address] | | | | | current | [address] | Phone: | | | | | pathological | [place], | [phone] | | | | | fracture | [place] | Fax: | | | | | | [address] | [phone] | | | | | | Phone: | | | | | | | [phone] | | | | | | | Fax: | | | | | | | [phone] | | +--------+ + + + + [...] Required | | | i, | [address] | | | | | osteoporosis | Pet[place] | [place], | | | | | without | , MD [address] | [place] [address] | | | | | current | [address] | Phone: | | | | | pathological | [place], | [phone] | | | | | fracture | [place] | Fax: | | | | | | [address] | [phone] | | | | | | Phone: | | | | | | | [phone] | | | | | | | Fax: | | | | | | | [phone] | | +--------+ + + + + + Encounter Details +--------+ + + + + | Date | Type | Department | Care Team | Description | +--------+ + + + + | 10/14/ | Hospital | [facility] | EmmyAlberto, | Age-related | | 2019 | Encounter | MED CTR OP INFUSION | MD [place] | osteoporosis without | | | | [address] | [address] [facility] | current | | | | [place] | [place] [address] | pathological | | | | [address] | [phone] | fracture (Primary | | | | [phone] | | Dx) | +--------+ + + [...] | | | | | [place] [address] | | | | | | [phone] | | | | | | | | +--------+---------+ + + + | 12/20/ | Office | Otolaryngology | Ulysses Genao MD | | | 2019 | Visit | | [address] | | | | | | [address] [place], | | | | | | [place] [address] | | | | | | [phone] | | | | | | | | +--------+---------+ + + + | 02/15/ | Office | Internal Medicine | EmmyAlberto, | | | 2019 | Visit | | MD [place] | | | | | | [address] [place] | | | | | | [place] [address] | | | | | | [phone] | | | | | | | [...]
--- OUTSIDE RECORDS SUMMARY | ~2019-11-17 | XMS | Encounter Summary ---
Demographics + + + | Address | [address] | | | [place] [address] [...] + +------+ + | Care Manager Of Training And Development Name | Role | Phone | [...] | Management | Chronic | Taqueria Strong, ENGINEERING TECHNOLOGY INSTRUCTOR | Rosi Armijo, ANP | | | | | neck pain | [address] | [address] | | | | | Low back | [place] | [place] | | | | | pain | [place] | [place], [place] | | | | | | [address] | [address] | | | | | | Phone: | | | | | | | [phone] | | | | | | | Fax: | | | | | | | [phone] | | +--------+--------+ + + + + Encounter Details +--------+---------+ + + + | Date | Type | Department | Care Team | Description | +--------+---------+ + + + | 08/09/ | Office | [facility] Comprehensive | Rosi Antonio, | Fibromyalgia | | 2013 | Visit | Pain Center at | ANP | syndrome 729.1 | | | | [facility] | | (Primary Dx); Major | | | | [address] | | depressive disorder, | | | | Mailcode: CH15P | | recurrent episode, | | | | [facility] | | moderate ([facility]); | | | | and Healing, | | Adjustment disorder | | | | Building | | with anxiety; LBP | | | | Floor [place], [place] | | (low back pain); | | | | [address] | | Osteopenia; Chronic | | | | [phone] | | Bilateral Shoulder | | | [...] al. Diabetes Care. 28(1):89-94, 2004; Anca M, RADIO MACHINIST Drugs. [address] 1:25-30; discussion 45-6, [...] might be different fro m the original. [facility] Comprehensive Pain Center Return Visit 08/09/2013 [...] never going to her local hospital in [place] for any medical evaluations. Belinda is very [...] Overview Note: Surgery 05/15/08 Dr Ricky Garnett [place] JEY karlos to get operative reports Osteopenia [...] and a pain drawing which I reviewed. [facility] Brief Pain Inventory: (ten= worst possible [...] regions, she notes pain in her right adventist, bilateral shoul crista muscles, left elbow, entire [...] right knee Lumbar fusion 05/2008, ' & L5-I6ejftgq with bone spur removals Appendectomy Cholecystectomy section [...] Hives Mainly in the legs Clindamycin Codeine Pdfondb-Ikgzaculiw-Otz-Caff Balance problems Fioricet W/Codeine (Kfmjqonqwa-Vcvwwvyzdr-Qcv-Cod) Keflex (Cephalexin) Morphine IM ( only in [facility]) made gut pain worse 08/27/06: Trial of oral MSIR caused leg swelling Penicillins Sulfa (Sulfonamide Antibiotics) Tramadol Ms. Meehan reports no side effects. The Review of Systems provided by Ms. Meehan and documented by the [facility] was reviewed. This data was entered by [...] al. Diabetes Care. 28(1):89-94, 2004; Anca M, RADIO MACHINIST Drugs. [address] 1:25-30; discussion 45-6, [...] of which more than 50% was spent fcoop-or-eapd in r eviewing pain questionnaire, medical record, [...] | + +---------+ + + | [facility] DEPARTMENT OF | | | | [...]
--- OUTSIDE RECORDS SUMMARY | ~2019-11-17 | XMS | Encounter Summary ---
Demographics + + + | Address | [address] | | | [place] [address] | + + + | Home Phone [...] Providers + +------+ + | Care Animal Daycare Provider Name | Role | Phone | [...] + + | 03/19/ | Telephone | [facility] | Alanis, | Other (bowel issues) | | 2017 | | MEDICINE [address] [place] [address] | MD [place] | | | | | [facility]ly [facility] | [address] [place] [address] | | | | | [place] [address] | [place] [address] | | | | | [phone] | [phone] | | | | | | | [...] | | | | | [place] [address] | | | | | | [phone] | | | | | | | | +--------+---------+ + + + | 12/20/ | Office | Otolaryngology | Ulysses Genao MD | | | 2019 | Visit | | [address] [place] | | | | | | [address] [place], | | | | | | [place] [address] | | | | | | [phone] | | | | | | | | +--------+---------+ + + + | 02/15/ | Office | Internal Medicine | Alanis, | | | 2019 | Visit | | MD [place] | | | | | | [address] [place] [address] [place] | | | | | | [place] [address] | | | | | | [phone] | | | | | | | | +--------+---------+ + + + documented as of this encounter Visit Diagnoses Not on filedocumented in this encounter"
--- OUTSIDE RECORDS SUMMARY | ~2019-11-17 | XMS | Encounter Summary ---
Demographics + + + | Address | [address] | | | [place] [address] | + + + | Home Phone [...] Team Providers + +------+ + | Care Bevel Gear Generator Operator Name | Role | Phone | + +------+ + PCP | Unavailable | + +------+ + Encounter Details +--------+ + + + + | Date | Type | Department | Care Team | Description | +--------+ + + + + | 08/09/ | Results | | Other, Faculty | | | 2002 | Only | | [phone] | | +--------+ + + + + [...] + | Ordered by [facility] | [facility] | | | DEPARTMENT OF | | | PATHOLOGY | + + + + + + + + | Performing | Address | City/State/Zipcode | Phone Number | | Organization | | | | + + + + + | [facility] DEPARTMENT OF | [facility] | [place] [address] | | | PATHOLOGY | [address] | | | + + + + + | [facility] DEPARTMENT OF | [facility] | [place] [address] | | | PATHOLOGY | [address] | | | + + + + + documented in this encounter Visit Diagnoses Not on filedocumented in this encounter"
--- OUTSIDE RECORDS SUMMARY | ~2019-11-17 | XMS | Encounter Summary ---
Demographics + + + | Address | [address] | | | [place] [address] | + + + | Home Phone [...] + +------+ + | Care Refinery Operator Reforming Unit Name | Role | Phone | + [...] Rd | | | | | | [place], [place] | | | | | | [address] | | | +--------+ + + + [...]
--- OUTSIDE RECORDS SUMMARY | ~2019-11-17 | XMS | Encounter Summary ---
Demographics + + + | Address | [address] | | | [place] [address] | + + + | Home Phone [...] Providers + +------+ + | Care Electrician Maintenance Name | Role | Phone | [...] | | | | [place], | [address] | | | | | | [place] | Phone: | | | | | | [address] | [phone] | | | | | | Phone: | Fax: | | | | | | [phone] | [phone] | | | | | | Fax: | | | | | | | [phone] | | +--------+ + + + + [...] + + | 04/18/ | Office | [facility] INTER[facility] | Alanis, | Poor memory (Primary | | 2019 | Visit | MEDICINE [address] [place] [address] | MD [place]rona | Dx); B12 | | | | Street [place] | [address] [facility] | deficiency; Fatty | | | | [place] [address] | [place] [address] | liver | | | | [phone] | [phone] | | | | | | | [...] Assessment (MoCA) Office Visit from 04/18/2019 in [facility] INTER[facility] MEDICINE Visuospatial / Executive 4 Naming [...] Allergen Reactions Ensure Diarrhea Food Diarrhea Lactose Togcffemze-Rez-Vyhh-Codeine Other (See Comments) Balance problems Codeine Sulfate Nausea Only Food Allergy Formula Diarrhea Ensure Levofloxacin Hives, Itching and Rash Butalbital Ropinirole Amitriptyline Hcl Other (See Comments) Confused and questionable for seizures Wvqyrlvssd-Dbju-Iufzftby Rash duplicate Alijqsqnzu-Rtia-Tjgxilje Hives and Rash Cephalexin Hives Ciprofloxacin Hives [...] 1. Parts of this documentwere created using [employer] speech recognition software. As a resu [...] [facility] [address] | | | | | | [place] | | | | | | [place] [address] | | | | | | [phone] | | | | | | | | +--------+---------+ + + + | 12/20/ | Office | Otolaryngology | Ulysses Genao MD | | | 2019 | Visit | | [address] | | | | | | [address] [place], | | | | | | [place] [address] | | | | | | [phone] | | | | | | | | +--------+---------+ + + + | 02/15/ | Office | Internal Medicine | Alanis, | | | 2019 | Visit | | MD [place]rona | | | | | | [address] [place] | | | | | | [place] [address] | | | | | | [phone] | | | | | | | [...] mL/min/1.73m2 | [facility] | | | [facility] | RATE,ESTIMATED | | MEDICAL | | | | mL/min/1.08j0Cmzt than | | CENTER - | | [...] | 9.9 | 8.7 - 10.4 | [facility] | | | | | mg/dL | [...] [address] | [place] | [phone] | | [facility] | | [address] | | | - LABORATORY | | [...] [address] | [place] | [phone] | | [facility] | | [address] | | | - LABORATORY | | | | + + + + + Vitamin B-12 (04/18/2019 11:29 AM PST) + + + + + + | Component | Value | Ref Range | Performed | Pathologist | | | | | At | Signature | + + + + + + | VITAMIN | >[id number] (H)Comment: | 156 - 672 pg/mL | [...] [address] | [place] | [phone] | | [facility] | | [address] | | | - LABORATORY | | [...] | | | | First dose on [facility] 10/15/17 at 1215 | | [...]
--- OUTSIDE RECORDS SUMMARY | ~2019-11-17 | XMS | Encounter Summary ---
Demographics + + + | Address | [address] | | | [place] [address] | + + + | Home Phone [...] Providers + +------+ + | Care Supervisor Drawing Name | Role | Phone | + [...] | | 2005 | | Center at [facility] [address] | | endoscopy procedure | | | | [address] | | | | | | Mailcode: [place] | | | | | | [facility] and | | | | | | [place] [address] | | | | | | [place], [place] | | | | | | [address] | | | | | | [phone] | | | +--------+ + + + [...] en doscopy in the G[facility]ology [facility] at [facility], see transcri bed report. Earnest Ward documented in this encount er Plan of Treatment + + +--------+ + + | Name | Type | Priori | Associated Diagnoses | Order Schedule | | | | ty | | | + + +--------+ + + | [place] GI TRACT IMAGING, | Procedures | Routin [...]
--- OUTSIDE RECORDS SUMMARY | ~2019-11-17 | XMS | Encounter Summary ---
Demographics + + + | Address | [address] | | | [place] [address] | + + + | Home Phone [...] + +------+ + | Care Machine Maintenance Servicer Name | Role | Phone | [...] as of this encounter Progress Notes Interface, Carpentry Supervisor In - 08/30/2005 2:07 AM PST [id number] [facility] Date: 08/11/2005 Clinic: Colorectal [...] Rebekah Navas M.D. Chris Padgett M.D. / [id number] / [id number] / [id number] / [id number] E: 08/14/2005 krfrancesco cc: Dr. Sarah De Jesus, [place] Electronically signed by Chris Padgett 08-29-2005 03:28:30 PM documented i n this encounter Plan of Treatment Not on filedocumented as of this encounter Visit Diagnoses Not on filedocumented in this encounter"
--- OUTSIDE RECORDS SUMMARY | ~2019-11-17 | XMS | Encounter Summary ---
Demographics + + + | Address | [address] | | | [place] [address] | + + + | Home Phone [...] Providers + +------+ + | Care Log Truck Driver Name | Role | Phone [...] + | 01/17/ | Refill | [facility] INTER[facility] | Alanis, | Medication Refill | | 2018 | | MEDICINE [address] [place] [address] | MD [place]ron[place] | | | | | [facility] | [address] [place] [address] | | | | | [place] [address] | [place] [address] | | | | | [phone] | [phone] | | | | | | | [...] | | | | | [place] [address] | | | | | | [phone] | | | | | | | | +--------+---------+ + + + | 12/20/ | Office | Otolaryngology | Ulysses Genao MD | | | 2019 | Visit | | [address] [place] | | | | | | [address] [place], | | | | | | [place] [address] | | | | | | [phone] | | | | | | | | +--------+---------+ + + + | 02/15/ | Office | Internal Medicine | Alanis, | | | 2019 | Visit | | MD Petron[place] | | | | | | [address] [place] [address] [address] | | | | | | [place] [address] | | | | | | [phone] | | | | | | | | +--------+---------+ + + + documented as of this encounter Visit Diagnoses Not on filedocumented in this encounter"
--- OUTSIDE RECORDS SUMMARY | ~2019-11-17 | XMS | Encounter Summary ---
Demographics + + + | Address | [address] | | | [place] [address] | + + + | Home Phone [...] Team Providers + +------+ + | Care Centrifuge Operator Name | Role | Phone | [...] Mychal Kovacs | | | | | [facility] | [place], [place] | | | | | [address] | [address] | | | | | [address] | [phone] | | | | | [facility] | | | | | | Physician's | | | | | | Pavilion [place], | | | | | | [place] [address] | | | | | | [phone] | | | +--------+ + + + [...]
--- OUTSIDE RECORDS SUMMARY | ~2019-11-17 | XMS | Encounter Summary ---
Demographics + + + | Address | [address] | | | [place] [address] | + + + | Home Phone [...] Providers + +------+ + | Care Enamel Shader Name | Role | Phone | [...] Acute pain | Emmy-Tajt | [address] | | | | | of right | i, | [place], | | | | | shoulder | [place] | [place] | | | | | Procedures | , [place] [address] | [address] | | | | | MRI Shoulder | [address] | Phone: | | | | | Right wo | [place], | [phone] | | | | | Contrast | [place] | Fax: | | | | | | [address] | [phone] | | | | | | Phone: | | | | | | | [phone] | | | | | | | Fax: | | | | | | | [phone] | | +--------+--------+ + + + + [...] Acute pain | Emmy-Tajt | [address] | | | | | of right | i, | [place], | | | | | shoulder | [place] | [place] | | | | | Procedures | , [address] | [address] | | | | | MRI Shoulder | [address] | Phone: | | | | | Right wo | [place], | [phone] | | | | | Contrast | [place] | Fax: | | | | | | [address] | [phone] | | | | | | Phone: | | | | | | | [phone] | | | | | | | Fax: | | | | | | | [phone] | | +--------+--------+ + + + + Encounter Details +--------+ + + + + | Date | Type | Department | Care Team | Description | +--------+ + + + + | 02/17/ | Hospital | [facility] | Emmy-Kamlesh, | Acute pain of right | | 2018 | Encounter | MED CTR MRI [address] | MD [place] | shoulder | | | | [address] [place], | [address] [place] | | | | | [place] [address] | [place] [address] | | | | | [phone] | [phone] | | | | | | | [...] | | | | | [place] [address] | | | | | | [phone] | | | | | | | | +--------+---------+ + + + | 12/20/ | Office | Otolaryngology | Ulysses Genao MD | | | 2019 | Visit | | [address] | | | | | | [address] [place], | | | | | | [place] [address] | | | | | | [phone] | | | | | | | | +--------+---------+ + + + | 02/15/ | Office | Internal Medicine | Alanis, | | | 2019 | Visit | | MD [place] | | | | | | [address] [place] | | | | | | [place] [address] | | | | | | [phone] | | | | | | | [...]
--- OUTSIDE RECORDS SUMMARY | ~2019-11-17 | XMS | Encounter Summary ---
Demographics + + + | Address | [address] | | | [place] [address] | + + + | Home Phone [...] + +------+ + | Care Emergency Room Nurse Name | Role | Phone [...] as of this encounter Progress Notes Interface, Bessemer Converter Blower In - 01/12/2005 8:09 AM PDT [id number] [facility] Date: 10/23/2003 Clinic: Ms. [...] the procedures and agrees to go ahead. Crhis Padgett M.D. CD / HS [id number] / [id number] / [id number] / [id number] documented i n this encounter Plan of Treatment Not on filedocumented as of this encounter Visit Diagnoses Not on filedocumented in this encounter"
--- OUTSIDE RECORDS SUMMARY | ~2019-11-17 | XMS | Encounter Summary ---
Demographics + + + | Address | [address] | | | [place] [address] | + + + | Home Phone [...] Providers + +------+ + | Care Sap Solutions Architect Name | Role | Phone [...] | low back | Sulaiman-Iv[address]ny | [address] | | | | | pain without MD [address] | [place] | | | | | sciatica | [address] | [address] Phone: | | | | | | [place], | [phone] | | | | | | [place] | Fax: | | | | | | [address] | [phone] | | | | | | Phone: | | | | | | | [phone] | | | | | | | Fax: | | | | | | | [phone] | | +--------+ + + + + + Reason for Visit + + + | Reason | Comments | + + + | Medication Orders | | + + + Encounter Details +--------+ + + + + | Date | Type | Department | Care Team | Description | +--------+ + + + + | 07/15/ | Telephone | [facility] INTER[facility] | Alanis, | Medication Orders | | 2018 | | MEDICINE [address] [place] [address] | MD [place] | | | | | [facility] | [address] [place] [address] | | | | | [place] [address] | [place] [address] | | | | | [phone] | [phone] | | | | | | | [...] | | | | | [place] [address] | | | | | | [phone] | | | | | | | | +--------+---------+ + + + | 12/20/ | Office | Otolaryngology | Ulysses Genao MD | | | 2019 | Visit | | [address] | | | | | | [address] [place], | | | | | | [place] [address] | | | | | | [phone] | | | | | | | | +--------+---------+ + + + | 02/15/ | Office | Internal Medicine | Alanis, | | | 2019 | Visit | | MD [place] | | | | | | [address] | | | | | | [place] [address] | | | | | | [phone] | | | | | | | [...]
--- OUTSIDE RECORDS SUMMARY | ~2019-11-17 | XMS | Encounter Summary ---
Demographics + + + | Address | [address] | | | [place] [address] | + + + | Home Phone [...] Providers + +------+ + | Care Cotton Wringer Name | Role | Phone | + [...] | | | | | [address] | [address] [place], [place] | | | | | [place] | [address] | | | | | [address] | | | | | | [phone] | | | +--------+ + + + [...] Electronic Medical Record (EMR) system used by [facility] will be updated. The category used to [...] insure continuity of care. Please contact the [facility] at with any [...] | | | | | [place] [address] | | | | | | [phone] | | | | | | | | +--------+---------+ + + + | 12/20/ | Office | Otolaryngology | Ulysses Genao MD | | | 2019 | Visit | | [address] | | | | | | [address] [place] | | | | | | [place] [address] | | | | | | [phone] | | | | | | | | +--------+---------+ + + + | 02/15/ | Office | Internal Medicine | Alanis, | | | 2019 | Visit | | MD [place] | | | | | | [address] [place] | | | | | | [place] [address] | | | | | | [phone] | | | | | | | | +--------+---------+ + + + documented as of this encounter Visit Diagnoses Not on filedocumented in this encounter"
--- OUTSIDE RECORDS SUMMARY | ~2019-11-17 | XMS | Encounter Summary ---
Demographics + + + | Address | [address] | | | [place] [address] | + + + | Home Phone [...] Providers + +------+ + | Care Cut Off Man Name | Role | Phone [...] + + | 05/16/ | Office | [facility] | Alanis, | Chronic diarrhea | | 2019 | Visit | MEDICINE [address] [place] [address] | MD [place] | (Primary Dx); | | | | [facility] | [address] [place] [address] | History of Zoe-en[place]Y | | | | [place] [address] | [place] [address] | gastric bypass; | | | | [phone] | [phone] | Fibromyalgia; Fatty | | | | [...] 1 tablet by mouth every morning BEFORE KIRESTEN AKFAST 90 tablet 2 loperamide (IMODIUM) 2 [...] Allergen Reactions Ensure Diarrhea Food Diarrhea Lactose Vjiglrvfbk-Mfh-Kjjx-Codeine Other (See Comments) Balance problems Codeine Sulfate Nausea Only Food Allergy Formula Diarrhea Ensure Levofloxacin Hives, Itching and Rash Butalbital Ropinirole Amitriptyline Hcl Other (See Comments) Confused and questionable for seizures Clgoyjocbu-Loyi-Wdsjpmub Rash duplicate Haxrqprjkb-Rzcf-Fqsllwua Hives and Rash Cephalexin Hives Ciprofloxacin Hives [...] 1. Parts of this documentwere created using [employer] speech recognition software. As a resu lt, [...] | | | | | [place] [address] | | | | | | [phone] | | | | | | | | +--------+---------+ + + + | 12/20/ | Office | Otolaryngology | Ulysses Genao MD | | 2019 | Visit | | [address] | | | | | | [address] [place] | | | | | | [place] [address] | | | | | | [phone] | | | | | | | | +--------+---------+ + + + | 02/15/ | Office | Internal Medicine | Alanis, | | | 2019 | Visit | | MD [place] | | | | | | [address] [facility] | | | | | | [place] [address] | | | | | | [phone] | | | | | | | [...]
--- OUTSIDE RECORDS SUMMARY | ~2019-11-17 | XMS | Encounter Summary ---
Demographics + + + | Address | [address] | | | [place] [address] [...] Team Providers + +------+ + | Care Icebox Man Name | Role | Phone | [...] | [address] | [facility] | Pre-Operative | | | | [address] | Gastro [facility] | Examination (Primary | | | | Mailcode: [id number] | [address] | Dx) | | | | Physician's Pavilion | [address] [place], | | | | | [place], [place] | [place] [address] | | | | | [address] | [phone] | | | | | [phone] | | | +--------+---------+ + + + [...] surgeries scheduled to take place on the elba at the [facility]: Surgeries scheduled in the [facility] ([address] [place] [address]): registration is located on the 4th floor of [facility] (Day Surgery). Surgeries scheduled in the [facility]: registration is located on the 9th floor. Surgeries scheduled in [facility]: registration is located on the 6th floor. Surgeries scheduled in the [facility]: registration is located i n the [facility] on the first floor. For surgeries scheduled to take place at the [facility]: registration is l ocated on [...] you use specialized medical equipment at [facility], please check with your provider before bringing [...] surgeries scheduled to take place on the elba at the [facility]: Surgeries scheduled in the [facility] ( North): registration is located on the 4th floor of [facility] (Day Surgery). Surgeries scheduled in the [facility]: registration is located on the 9th floor. Surgeries scheduled in [facility]: registration is located on the 6th floor. Surgeries scheduled in the [facility]: registration is located i n the [facility] on the first floor. For surgeries scheduled to take place at the [facility]: registration is l [...] you use specialized medical equipment at [facility], please check with your provider before bringing [...] 08/2007 right knee Hx lumbar fusion 05/2008 L5-S2ndlmyr with bone spur removals Hx appendectomy Hx [...] Tramadol Morphine IM ( only in [facility]) made gut pain worse 08/27/06: Trial of oral MSIR caused leg swelling Clarithromycin Hives Mainly in the legs Whgxncm-ilsslgcnoa-ewj-caff Balance problems Amitriptyline Grand mal seizures Fioricet W/codeine (Npe-heruofqmbk-akqhwaswbj-caf) FAMILY HISTORY: Family History Problem Relation Cancer [...] | | | DEPARTMENT | | | [facility] | | | OF | | | [...] [facility] | [address] | [place] [address] | | | PATHOLOGY | [address] | | | + + + + + | [facility] DEPARTMENT OF | [address] | [place] [address] | | | PATHOLOGY | [address] [...] DEPARTMENT OF | [address] | [place] [address] | | | PATHOLOGY | [address] | | | + + + + + | [facility] | [address] | [place] [address] | | | PATHOLOGY | [address] | | | + + + + + documented in this encounter Visit Diagnoses + + | Diagnosis | + + | Other specified pre-operative examination - Primary | + + documented in this encounter
--- OUTSIDE RECORDS SUMMARY | ~2019-11-17 | XMS | Encounter Summary ---
Demographics + + + | Address | [address] | | | [place] [address] | + + + | Home Phone [...] Providers + +------+ + | Care Ear Flap Binder Name | Role | Phone | + +------+ + | [place] Thapa | PCP | | | MD | | | + +------+ + Encounter Details +--------+ + + + + | Date | Type | Department | Care Team | Description | +--------+ + + + + | 02/23/ | Hospital | [facility] | [place] | Right shoulder pain, | | 2018 | Encounter | MED CTR [address] [facility] | MD [address] | unspecified | | | | [address] [place] | [address] | chronicity | | | | [place] | [place] [address] | | | | | [address] | [phone] | | | | | [phone] | | | +--------+ + + + [...] | | | | | [place] [address] | | | | | | [phone] | | | | | | | | +--------+---------+ + + + | 12/20/ | Office | Otolaryngology | Ulysses Genao MD | | | 2019 | Visit | | [address] | | | | | | [address] [place], | | | | | | [place] [address] | | | | | | [phone] | | | | | | | | +--------+---------+ + + + | 02/15/ | Office | Internal Medicine | Alanis, | | | 2019 | Visit | | MD [place] | | | | | | [address] [place] | | | | | | [place] [address] | | | | | | [phone] | | | | | | | [...]
--- OUTSIDE RECORDS SUMMARY | ~2019-11-17 | XMS | Encounter Summary ---
Demographics + + + | Address | [address] | | | [place] [address] | + + + | Home Phone [...] Providers + +------+ + | Care Pet Care Technician Name | Role | Phone | [...] | | | | Clinical Nutrition | [place], [place] | | | | | [address] | [address] | | | | | Loop Mailcode: [id number] | [phone] | | | | | Outpatient Clinic | | | | | | [facility] | | | | | | [place] [address] | | | | | | [phone] | | | +--------+ + + + [...] + + | [facility] | [address] | [place] [address] | | | LABORATORY | | | [...] + + + | [facility] | [address] | [place] [address] | | | LABORATORY | | | [...] + + | [facility] | [address] | [place] [address] | | | LABORATORY | | | | + + + + + documented in this encounter Visit Diagnoses Not on filedocumented in this encounter"
--- OUTSIDE RECORDS SUMMARY | ~2019-11-17 | XMS | Encounter Summary ---
Demographics + + + | Address | [address] | | | [place] [address] | + + + | Home Phone [...] Providers + +------+ + | Care Soda Worker Name | Role | Phone | [...] | 2006 | Visit | [facility] | MD Darrion,PhD [address] | Deconditioning; | | | | for Health and | [address] | Physical | | | | Healing [address] | [place], [place] | Deconditioning | | | | Ave Mailcode: | [address] | | | | | [facility] | [phone] | | | | | Health and Healing, | | | | | | [facility] | | | | | | Floor [place], [place] | | | | | | [address] | | | | | | [phone] | | | +--------+---------+ + + + [...] and neurology assessment. Angel Morales M.D., Ph.D. Transit Mixer Driver, Surgical Medical Nurse Orthopedics & Cartilage Reconstruction Surgery Department of [email or web address] [email or web address] documented in this encou nter Plan [...]
--- OUTSIDE RECORDS SUMMARY | ~2019-11-17 | XMS | Encounter Summary ---
Demographics + + + | Address | [address] | | | [place] [address] | + + + | Home Phone [...] Providers + +------+ + | Care Mine Wedge Sawyer Name | Role | Phone | [...] of this encounter Progress Notes Interface, Laborer Cement Gun Placing In - 03/29/2005 5:05 AM PDT [id number] [facility] Date: 03/20/2005 Clinic: Rheumatology [...] and sense of disability is 5/10. Her assistant case manager needs a note from me [...] for the diagnosis of fibromyalgia by the [employer]. She also has the [...] to treat restless legs. There is a technician support association in [place] who is using large doses to reduce [...] 4 months. Caitlin Rivera M.S., F.N.P. / [id number] / [id number] / [id number] / [phone] cc: Pedrito Gutierrez M.D. [address] [place] [address] Belinda Meehan [address] [facility] [place] [address] Electronically signed by Caitlin Rivera 03-28-2005 01:43:14 PM documented i n this encounter Plan of Treatment Not on filedocumented as of this encounter Visit Diagnoses Not on filedocumented in this encounter"
--- OUTSIDE RECORDS SUMMARY | ~2019-11-17 | XMS | Encounter Summary ---
Demographics + + + | Address | [address] | | | [place] [address] | + + + | Home Phone [...] Providers + +------+ + | Care Systems Integrator Name | Role | Phone | [...] | Other | | 2008 | | [place] [address] | [address] | | | | | Bethanie Mailcode: CH4S | [address] | | | | | [facility] | [place], [place] | | | | | and Healing, | [address] | | | | | [place] [address], [facility] | [phone] | | | | | Floor [place], [place] | | | | | | [address] | | | | | | [phone] | | | +--------+ + + + [...]
--- OUTSIDE RECORDS SUMMARY | ~2019-11-17 | XMS | Encounter Summary ---
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 Diagnosis: George I: 1. (296.32) Major depressive disorder, recurrent, moderate. 2. (309.24) Adjustment disorder with anxiety. 3. 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 George II: Deferred George III: abdominal pain, migraine headache, low back pain. George IV: low finances George V: GAF 55-60 Plan: Return in 2 weeks. Check mood, pacing, relaxation, activity, distraction. Continue cognit gerda/behavioral therapy. Set goals for summer activity. Total time spent with patient was approximately 45 minutes. LUKASZ CHARLES PHD [facility] [address] [place] [address] And [facility], [address] [place] [address] documented in this encount er Plan of [...] | Major depressive disorder, recurrent episode, moderate ([facility]) Major depressive | | disorder, [...]
--- OUTSIDE RECORDS SUMMARY | ~2019-11-17 | XMS | Encounter Summary ---
Demographics + + + | Address | [address] | | | [place] [address] | + + + | Home Phone [...] + | 10/04/ | Documentati | [facility] | Alanis, | | | 2019 | on | MEDICINE [address] | MD Petrona | | | | | [address] [place] | [address] [facility] | | | | | [place] [address] | [place] [address] | | | | | [phone] | [phone] | | | | | | | [...] | | | | | [place] [address] | | | | | | [phone] | | | | | | | | +--------+---------+ + + + | 12/20/ | Office | Otolaryngology | Ulysses Genao MD | | | 2019 | Visit | | [address] [place] | | | | | | [address] [place], | | | | | | [place] [address] | | | | | | [phone] | | | | | | | | +--------+---------+ + + + | 02/15/ | Office | Internal Medicine | Alanis, | | | 2019 | Visit | | MD Petrona | | | | | | [address] [place] | | | | | | [place] [address] | | | | | | [phone] | | | | | | | | +--------+---------+ + + + documented as of this encounter Visit Diagnoses Not on filedocumented in this encounter"
--- OUTSIDE RECORDS SUMMARY | ~2019-11-17 | XMS | Encounter Summary ---
Demographics + + + | Address | [address] | | | [place] [address] | + + + | Home Phone [...] + + | 07/30/ | Hospital | [facility] | Ulysses Genao MD | | | 2011 - | Encounter | MED CTR OP REHAB | [address] [place] | | | | | [address] [place] | [address] [place], | | | / | | [place] [address] | [place] [address] | | | 2011 | | [phone] | [phone] | | | | | | | [...] | | | | | [place] [address] | | | | | | [phone] | | | | | | | | +--------+---------+ + + + | 12/20/ | Office | Otolaryngology | Ulysses Genao MD | | | 2019 | Visit | | [address] [place] | | | | | | [address] [place], | | | | | | [place] [address] | | | | | | [phone] | | | | | | | | +--------+---------+ + + + | 02/15/ | Office | Internal Medicine | Alanis, | | | 2019 | Visit | | MD Petrona | | | | | | [address] [place] | | | | | | [place] [address] | | | | | | [phone] | | | | | | | | +--------+---------+ + + + documented as of this encounter Visit Diagnoses Not on filedocumented in this encounter"
--- OUTSIDE RECORDS SUMMARY | ~2019-11-17 | XMS | Encounter Summary ---
Demographics + + + | Address | [address] | | | [place] [address] | + + + | Home Phone [...] + + | 01/17/ | Office | [facility] | Alanis, | Surgical wound | | 2019 | Visit | MEDICINE [address] [place] [address] | MD Petrona | infection (Primary | | | | Street [place] | [address] [facility] | Dx) | | | | [place] [address] | [place] [address] | | | | | [phone] | [phone] | | | | | | | [...] Procedure: COLONOSCOPY; Surgeon: Luther Brito MD; Location: [facility] DILATION AND CURETTAGE OF UTERUS ELBOW SURGERY FINGER TRIGGER RELEASE 2002 FINGER TRIGGER RELEASE 2009 GASTRIC BYPASS SURGERY 2004 HYSTERECTOMY 05/14/1980 JOINT REPLACEMENT Bilateral 2007 2007 KNEE ARTHROSCOPY 2005 LAPAROSCOPY 01/27/2015 LAPAROTOMY 2008 ROTATOR CUFF REPAIR 2004 SPINE SURGERY TONSILLECTOMY 1964 UPPER GASTROINTESTINAL ENDOSCOPY N/A 12/18/2017 Procedure: EGD; Surgeon: Luther Brito MD; Location: [facility] CURRENT MEDICATIONS Current Outpatient [...] Allergen Reactions Ensure Diarrhea Food Diarrhea Lactose Njjwkrpkmy-Zwr-Qxxt-Codeine Other (See Comments) Balance problems Codeine Sulfate Nausea Only Food Allergy Formula Diarrhea Ensure Levofloxacin Hives, Itching and Rash Butalbital Ropinirole Amitriptyline Hcl Other (See Comments) Confused and questionable for seizures Jggtxlitkl-Xucv-Eyiuhiul Hives and Rash Cephalexin Hives Ciprofloxacin Hives [...] Note: Parts of this documentwere created using [employer] speech recognition software. As a r [...] [address] | | | | | | [facility] [address] [facility] | | | | | | [place] [address] | | | | | | [phone] | | | | | | | | +--------+---------+ + + + | 12/20/ | Office | Otolaryngology | Ulysses Genao MD | | | 2019 | Visit | | [address] [place] | | | | | | [address] [place] | | | | | | [place] [address] | | | | | | [phone] | | | | | | | | +--------+---------+ + + + | 02/15/ | Office | Internal Medicine | Alanis, | | | 2019 | Visit | | MD Petrona | | | | | | [address] [place] | | | | | | [place] [address] | | | | | | [phone] | | | | | | | | +--------+---------+ + + + documented as of this encounter Visit Diagnoses + + | Diagnosis | + + | Surgical wound infection - Primary Other postoperative infection | + + documented in this encounter
--- OUTSIDE RECORDS SUMMARY | ~2019-11-17 | XMS | Encounter Summary ---
Demographics + + + | Address | [address] | | | [place] [address] | + + + | Home Phone [...] Team Providers + +------+ + | Care Perch Machine Inspector Name | Role | Phone | + +------+ + PCP | Unavailable | + +------+ + Encounter Details +--------+ + + + + | Date | Type | Department | Care Team | Description | +--------+ + + + + | 08/11/ | Hospital | [facility] | Ruben Tobias | | | 2001 | Encounter | MED CTR SLEEP | MD Raji [address] | | | | | [place] [address] | [address] [facility] | | | | | [place], [place] | [place] [address] | | | | | [address] | [phone] | | | | | [phone] | | | +--------+ + + + [...] [address] | | | | | | [phone] | | | | | | | | +--------+---------+ + + + | 12/20/ | Office | Otolaryngology | Ulysses Genao MD | | | 2019 | Visit | | [address] [place] | | | | | | [address] [place], | | | | | | [place] [address] | | | | | | [phone] | | | | | | | | +--------+---------+ + + + | 02/15/ | Office | Internal Medicine | Alanis, | | | 2019 | Visit | | MD Petrona | | | | | | [address] [place] | | | | | | [place] [address] | | | | | | [phone] | | | | | | | | +--------+---------+ + + + documented as of this encounter Visit Diagnoses Not on filedocumented in this encounter"
--- OUTSIDE RECORDS SUMMARY | ~2019-11-17 | XMS | Encounter Summary ---
Demographics + + + | Address | [address] | | | [place] [address] | + + + | Home Phone [...] Providers + +------+ + | Care Maintenance Shop Welder Name | Role | Phone | + +------+ + | Petrona Thapa | PCP | | | MD | | | + +------+ + Encounter Details +--------+ + + + + | Date | Type | Department | Care Team | Description | +--------+ + + + + | 07/09/ | Abstract | [facility] | Alanis, | | | 2018 | | MEDICINE [address] | MD Petrona | | | | | [address] [place] | [address] [facility] | | | | | [place] [address] | [place] [address] | | | | | [phone] | [phone] | | | | | | | [...] | | | | | [place] [address] | | | | | | [phone] | | | | | | | | +--------+---------+ + + + | 12/20/ | Office | Otolaryngology | Ulysses Genao MD | | | 2019 | Visit | | [address] [place] | | | | | | [address] [place], | | | | | | [place] [address] | | | | | | [phone] | | | | | | | | +--------+---------+ + + + | 02/15/ | Office | Internal Medicine | Alanis, | | | 2019 | Visit | | MD Petrona | | | | | | [address] [place] | | | | | | [place] [address] | | | | | | [phone] | | | | | | | [...]
--- OUTSIDE RECORDS SUMMARY | ~2019-11-17 | XMS | Encounter Summary ---
Demographics + + + | Address | [address] | | | [place] [address] | + + + | Home Phone [...] Team Providers + +------+ + | Care Cps Team Lead Name | Role | Phone [...] + | 06/16/ | Clinical | [facility] | Alanis, | B12 deficiency | | 2020 | Support | MEDICINE [address] [place] [address] | MD Petrona | (Primary Dx) | | | | [facility] | [address] [place] [address] | | | | | [place] [address] | [place] [address] | | | | | [phone] | [phone] | | | | | | | [...] of this encounter Progress Notes Shanta Whaley, Die Cast Operator - 06/16/2019 10:30 AM PSTFormatting of this note calderon ht be different from the original. Administrations This Visit cyanocobalamin (VITAMIN B-12) injection 1,000 mcg Admin Date 06/16/2019 Action Given Dose 1000 mcg Route Intramuscular Administered By Shanta Whaley Die Cast Operator Patient tolerated injection well, advised to schedule [...] | | | | | [place] [address] | | | | | | [phone] | | | | | | | | +--------+---------+ + + + | 12/20/ | Office | Otolaryngology | Ulysses Genao MD | | | 2019 | Visit | | [address] | | | | | | [address] [place], | | | | | | [place] [address] | | | | | | [phone] | | | | | | | | +--------+---------+ + + + | 02/15/ | Office | Internal Medicine | Alanis, | | | 2019 | Visit | | MD Petrona | | | | | | [address] [place] | | | | | | [place] [address] | | | | | | [phone] | | | | | | | [...]
--- OUTSIDE RECORDS SUMMARY | ~2019-11-17 | XMS | Encounter Summary ---
Demographics + + + | Address | [address] | | | [place] [address] | + + + | Home Phone [...] [id number] | | | | | | [place], [place] | | | | | | [address] | | | | | | [phone] | | | +--------+ + + + [...] | uIU/ml | | | | | [facility] [...] | + + + + + | [facility] | [address] | [place] [address] | | | LABORATORY | | | | + + + + + documented in this encounter Visit Diagnoses Not on filedocumented in this encounter"
--- OUTSIDE RECORDS SUMMARY | ~2019-11-17 | XMS | Encounter Summary ---
Demographics + + + | Address | [address] | | | [place] [address] | + + + | Home Phone [...] Providers + +------+ + | Care Technology Engineer Name | Role | Phone | [...] | | | | pain | [place] | [facility] [address] | | | | | Procedures | Clement[place] | [address] | | | | | CONSULT TO | [place], [place] | [place] | | | | | GI PROCEDURE | [address] | [address] | | | | | UNIT: | Phone: | | | | | | COLONOSCOPY | [phone] | | | | | | | Fax: | | | | | | | [phone] | | + + + + + [...] | | | | Mailcode: L223A | [place], [place] | | | | | [facility] | [address] | | | | | [address] [place], [place] | [phone] | | | | | [address] | | | | | | [phone] | | | +--------+---------+ + + + [...] Ms. Meehan has been seen in the [facility] emergency dept twice in the last month [...] [facility] | [address] | [place], [place] | | | [facility] | | [address] | | + + + + + documented in this encounter Visit Diagnoses + + | Diagnosis | + + | Chronic abdominal pain - Primary Abdominal pain, unspecified site | + + documented in this encounter
--- OUTSIDE RECORDS SUMMARY | ~2019-11-17 | XMS | Encounter Summary ---
Demographics + + + | Address | [address] | | | [place] [address] | + + + | Home Phone [...] Team Providers + +------+ + | Care Co Pilot Name | Role | Phone | [...]
--- OUTSIDE RECORDS SUMMARY | ~2019-11-17 | XMS | Encounter Summary ---
Demographics + + + | Address | [address] | | | [place] [address] | + + + | Home Phone [...] +------+ + | Care Supervisor Leaf [employer]rication Name | Role | Phone | [...] + | 04/08/ | Telephone | [facility] Division of | Carlos Arreola, | Swelling | | 2005 | | Gastroenterology/Hep | [address] | (ANDREEA) | | | | atology [address] | | | | | [address] | [place] [address] | | | | | Mailcode: [id number] | [phone] | | | | | [facility] | | | | | | [address] | | | | | | [place], [place] | | | | | | [address] | | | | | | [phone] | | | +--------+ + + + [...]
--- OUTSIDE RECORDS SUMMARY | ~2019-11-17 | XMS | Encounter Summary ---
Demographics + + + | Address | [address] | | | [place] [address] | + + + | Home Phone [...] Team Providers + +------+ + | Care Formation Fracturing Operator Name | Role | Phone | + +------+ + | Pedrito Gutierrez MD | PCP | | + +------+ + Encounter Details +--------+---------+ + + + | Date | Type | Department | Care Team | Description | +--------+---------+ + + + | 07/30/ | Office | Digestive Health | Eliezer Ruano, | Abdominal Pain | | 2006 | Visit | [place] [address] | [address] | (Primary Dx) | | | | Ave Mailcode: CH4S | [address] | | | | | Center for [facility] | [facility] [place] | | | | | and Healing, | [address] | | | | | [facility] 1, 6th | [phone] | | | | | Floor [place], [place] | | | | | | [address] | | | | | | [phone] | | | +--------+---------+ + + + [...] [facility] [address] [facility], 6th [place] [address] alena Palacio - 07/30 4:09 PM PSTS: [...]
--- OUTSIDE RECORDS SUMMARY | ~2019-11-17 | XMS | Encounter Summary ---
Demographics + + + | Address | [address] | | | [place] [address] | + + + | Home Phone [...] Providers + +------+ + | Care Metal Dresser Name | Role | Phone | [...] Medication requested | | 2007 | | [place] [address] | [address] | (sucralfate | | | | Ave Mailcode: CH4S | [facility] | (CARAFATE) 1 gram | | | | [facility] | [place], [place] | Oral Tablet) | | | | and Healing, | [address] | | | | | [facility] | [phone] | | | | | [place], [place] | | | | | | [address] | | | | | | [phone] | | | +--------+ + + + [...]
--- OUTSIDE RECORDS SUMMARY | ~2019-11-17 | XMS | Encounter Summary ---
Demographics + + + | Address | [address] | | | [place] [address] | + + + | Home Phone [...] Team Providers + +------+ + | Care Exhibits Manager Name | Role | Phone | [...] | | | | Clinical Nutrition | [place], [place] | | | | | [address] | [address] | | | | | Loop Mailcode: OPC5 | [phone] | | | | | Outpatient Clinic | | | | | | [facility] | | | | | | [place] [address] | | | | | | [phone] | | | +--------+ + + + [...] | + + + + + | [facility] | [address] | [place] [address] | | | LABORATORY | | | [...] | + + + + + | [facility] | [address] | [place] [address] | | | LABORATORY | | | [...] DEPARTMENT OF | [address] | [place] [address] | | | PATHOLOGY | [address] | | | + + + + + | [facility] DEPARTMENT OF | [address] | [facility] [place] [address] | | | PATHOLOGY | [address] [...] [facility] DEPARTMENT OF | [address] | [place] [address] | | | PATHOLOGY | [address] | | | + + + + + | [facility] DEPARTMENT OF | [address] | [place] [address] | | | PATHOLOGY | [address] | | | + + + + + documented in this encounter Visit Diagnoses Not on filedocumented in this encounter"
--- OUTSIDE RECORDS SUMMARY | ~2019-11-17 | XMS | Encounter Summary ---
Demographics + + + | Address | [address] | | | [place] [address] | + + + | Home Phone [...] Team Providers + +------+ + | Care Skills Auditor Name | Role | Phone | [...] Clinic | | | | | | [address] | | | | | | Mailcode: CH15P | | | | | | [place] [facility] | | | | | | and Healing, | | | | | | Building ,15th | | | | | | Floor [place], [place] | | | | | | [address] | | | | | | [phone] | | | +--------+ + + + [...]
--- OUTSIDE RECORDS SUMMARY | ~2019-11-17 | XMS | Encounter Summary ---
Demographics + + + | Address | [address] | | | [place] [address] | + + + | Home Phone [...] Providers + +------+ + | Care Peanut Salter Name | Role | Phone | + [...] + + | 07/16/ | Telephone | [facility] | Alanis, | IV Medication | | 2017 | | MEDICINE [address] [place] [address] | MD Petrona | | | | | [facility] | [address] [place] [address] | | | | | [place] [address] | [place] [address] | | | | | [phone] | [phone] | | | | | | | [...] | | | | | [place] [address] | | | | | | [phone] | | | | | | | | +--------+---------+ + + + | 12/20/ | Office | Otolaryngology | Ulysses Genao MD | | | 2019 | Visit | | [address] | | | | | | [address] [place], | | | | | | [place] [address] | | | | | | [phone] | | | | | | | | +--------+---------+ + + + | 02/15/ | Office | Internal Medicine | Alanis, | | | 2019 | Visit | | MD Petrona | | | | | | [address] [place] | | | | | | [place] [address] | | | | | | [phone] | | | | | | | | +--------+---------+ + + + documented as of this encounter Visit Diagnoses Not on filedocumented in this encounter"
--- OUTSIDE RECORDS SUMMARY | ~2019-11-17 | XMS | Encounter Summary ---
[...] Team Providers + +------+ + | Care Workday Manager Name | Role | Phone | [...] | | | | [address] Physician[facility] | [place], [place] | | | | | [address] | [address] | | | | | [place], [place] | [phone] | | | | | [address] | | | | | | [phone] | | | +--------+ + + + [...]
--- OUTSIDE RECORDS SUMMARY | ~2019-11-17 | XMS | Encounter Summary ---
Demographics + + + | Address | [address] | | | [place] [address] [...] Team Providers + +------+ + | Care Loft Worker Pile Driving Name | Role | Phone | + [...] + + | 05/11/ | Telephone | [facility] | Alanis, | Results | | 2016 | | MEDICINE [address] | MD [place]rona | | | | | [facility] | [address] [facility] | | | | | [place] [address] | [place] [address] | | | | | [phone] | [phone] | | | | | | | [...] | | | | | [place] [address] | | | | | | [phone] | | | | | | | | +--------+---------+ + + + | 12/20/ | Office | Otolaryngology | Ulysses Genao MD | | | 2019 | Visit | | [address] | | | | | | [address] [place], | | | | | | [place] [address] | | | | | | [phone] | | | | | | | | +--------+---------+ + + + | 02/15/ | Office | Internal Medicine | Alanis, | | | 2019 | Visit | | MD Petrona | | | | | | [address] [place] | | | | | | [place] [address] | | | | | | [phone] | | | | | | | | +--------+---------+ + + + documented as of this encounter Visit Diagnoses + + | Diagnosis | + + | Acute bilateral low back pain with bilateral sciatica - Primary | + + documented in this encounter"
--- OUTSIDE RECORDS SUMMARY | ~2019-11-17 | XMS | Encounter Summary ---
[...] Team Providers + +------+ + | Care Shorer Name | Role | Phone | + [...] | | | Ave Mailcode: CH4S | [facility] | | | | | [facility] | [place], [place] | | | | | and Healing, | [address] | | | | | [facility] | [phone] | | | | | Floor [place], [place] | | | | | | [address] | | | | | | [phone] | | | +--------+ + + + [...]
--- OUTSIDE RECORDS SUMMARY | ~2019-11-17 | XMS | Encounter Summary ---
Demographics + + + | Address | [address] | | | [place] [address] | + + + | Home Phone [...] Team Providers + +------+ + | Care Pilling Machine Operator Name | Role | Phone [...] + + | 03/30/ | Telephone | [facility] | Alanis, | Appointment | | 2019 | | MEDICINE [address] [place] [address] | MD Petrona | | | | | [facility] | [address] [place] [address] | | | | | [place] [address] | [place] [address] | | | | | [phone] | [phone] | | | | | | | [...] | | | | | [place] [address] | | | | | | [phone] | | | | | | | | +--------+---------+ + + + | 12/20/ | Office | Otolaryngology | Ulysses Genao MD | | | 2020 | Visit | | [address] | | | | | | [address] [place], | | | | | | [place] [address] | | | | | | [phone] | | | | | | | | +--------+---------+ + + + | 02/15/ | Office | Internal Medicine | Alanis, | | | 2019 | Visit | | MD Petrona | | | | | | [address] | | | | | | [place] [address] | | | | | | [phone] | | | | | | | | +--------+---------+ + + + documented as of this encounter Visit Diagnoses Not on filedocumented in this encounter"
--- OUTSIDE RECORDS SUMMARY | ~2019-11-17 | XMS | Encounter Summary ---
Demographics + + + | Address | [address] | | | [place] [address] [...] Team Providers + +------+ + | Care Denture Waxer Name | Role | Phone | [...] | | | | CONSULT TO | [place], [place] | [address] | | | | | NEUROLOGY | [address] | for Health | | | | | | | and Healing, | | | | | | | Building [address], | | | | | | | 8th Floor | | | | | | | [place], [place] | | | | | | | [address] | | | | | | | Phone: | | | | | | | [phone] | | | | | | | Fax: | | | | | | | [phone] | +--------+--------+ + + + + Reason for Visit +--------+ + | Reason | Comments | +--------+ + | Pain | back, legs, headache | +--------+ + Encounter Details +--------+---------+ + + + | Date | Type | Department | Care Team | Description | +--------+---------+ + + + | 08/12/ | Office | [facility] Comprehensive | Delfina Molina, | Migraine Headache | | 2006 | Visit | Pain Center at | ANP | (Primary Dx); | | | | [facility] | | 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 female [facility] Pain Center Return Visit [...] two weeks or PRN DELFINA MOLINA [facility] Pain Center Mail code CH 4P [facility] and [address] [place] [address] Alisha Marquez - 7 [...]
--- OUTSIDE RECORDS SUMMARY | ~2019-11-17 | XMS | Encounter Summary ---
Demographics + + + | Address | [address] | | | [place] [address] | + + + | Home Phone [...] Providers + +------+ + | Care Calender Operator Name | Role | Phone | [...] [address] | | | | | [place], [place] | [place], [place] | | | | | [address] | [address] | | | | | [phone] | [phone] | | | | | | | [...]
--- OUTSIDE RECORDS SUMMARY | ~2019-11-17 | XMS | Encounter Summary ---
Demographics + + + | Address | [address] | | | [place] [address] | + + + | Home Phone [...] Providers + +------+ + | Care Grain Operations Manager Name | Role | Phone [...] + + | 09/09/ | Telephone | [facility] INTER[facility] | Alanis, | Phone Attempt | | 2018 | | MEDICINE [address] [place] [address] | MD Petrona | | | | | [facility] | [address] [place] [address] | | | | | [place] [address] | [place] [address] | | | | | [phone] | [phone] | | | | | | | [...] | | | | | [place] [address] | | | | | | [phone] | | | | | | | | +--------+---------+ + + + | 12/20/ | Office | Otolaryngology | Ulysses Genao MD | | | 2019 | Visit | | [address] | | | | | | [address] [place], | | | | | | [place] [address] | | | | | | [phone] | | | | | | | | +--------+---------+ + + + | 02/15/ | Office | Internal Medicine | Alanis, | | | 2019 | Visit | | MD Petrona | | | | | | [address] [place] | | | | | | [place] [address] | | | | | | [phone] | | | | | | | | +--------+---------+ + + + documented as of this encounter Visit Diagnoses Not on filedocumented in this encounter"
--- OUTSIDE RECORDS SUMMARY | ~2019-11-17 | XMS | Encounter Summary ---
Demographics + + + | Address | [address] | | | [place] [address] | + + + | Home Phone [...] Providers + +------+ + | Care Flower Grower Name | Role | Phone | [...] + + | 03/02/ | Office | [facility] INTER[facility] | Emmy-Jeffti, | Neck pain on right | | 2018 | Visit | MEDICINE [address] | MD Petrona | side (Primary Dx); | | | | [address] [place] | [address] [facility] | Primary stabbing | | | | [place] [address] | [place] [address] | headache; | | | | [phone] | [phone] | Non-intractable | | | | | [...] Medical Student - 03/02/2018 9:[address] [facility] PROGRESS NOTE Pt. Name/Age/: Belinda Meehan 58 y.o. 1960 Med. Record Number: [id number] HPI: Belinda Meehan is a 58 y.o. [...] pulmonary disease) ([facility]LY [facility]) Depression Diarrhea Dumping syndrome Fall at [...] generalized Osteopenia Osteoporosis Peripheral neuropathy Rheumatoid arthritis ([facility]) Right arm pain 01/04/2015 RLS (restless [...] PROCEDURE UNIT Allergies Allergen Reactions Levofloxacin Hives,Itching,Rash Xfjikpeupw-Vieo-Mbhkztxu Hives,Rash Cephalexin Hives Ciprofloxacin Hives,Rash Clarithromycin Hives,Rash [...] | | | | | [place] [address] | | | | | | [phone] | | | | | | | | +--------+---------+ + + + | 12/20/ | Office | Otolaryngology | Ulysses Genao MD | | | 2019 | Visit | | [address] | | | | | | [address] [place], | | | | | | [place] [address] | | | | | | [phone] | | | | | | | | +--------+---------+ + + + | 02/15/ | Office | Internal Medicine | Alanis, | | | 2019 | Visit | | MD Petrona | | | | | | [address] [place] | | | | | | [place] [address] | | | | | | [phone] | | | | | | | [...] 9 | 7 - 18 mg/dL | [facility] | | | | | | [facility] | | | | | | [facility] | | | | | | [facility] - | | | | | | LABORATORY | | + + + + + + | Creatinine | 0.83 | 0.60 - 1.30 | [facility] | | | | | mg/dL | [facility] | | | | | | MEDICAL | | | | | | CENTER - | | | | | | LABORATORY | | + + + + + + | eGFR if not | >60Comment: GLOMERULAR | >=60 | [facility] | | | | FILTRATION | mL/min/1.73m2 | Yudy NATHAN | | | KITTITIAN | RATE,ESTIMATED | | MEDICAL | | | | mL/min/1.10j9Kqzf than | | CENTER - | | [...] [address] | [place] | [phone] | | [facility] | | [address] | | | - LABORATORY | | [...] [address] | [place] | [phone] | | [facility] | | [address] | | | - LABORATORY | | [...] [address] | [place] | [phone] | | [facility] | | [address] | | | - LABORATORY | | [...]
--- OUTSIDE RECORDS SUMMARY | ~2019-11-17 | XMS | Encounter Summary ---
Demographics + + + | Address | [address] | | | [place] [address] | + + + | Home Phone [...] Team Providers + +------+ + | Care Pharmacist Aide Name | Role | Phone | [...] Rd | | | | | | [facility] | | | | | | [place], [facility] | | | | | | [place], [place] | | | | | | [address] | | | | | | [phone] | | | +--------+ + + + [...]
--- OUTSIDE RECORDS SUMMARY | ~2019-11-17 | XMS | Encounter Summary ---
Demographics + + + | Address | [address] | | | [place] [address] | + + + | Home Phone [...] Providers + +------+ + | Care Feather Maker Name | Role | Phone | [...] + + | 06/30/ | Refill | [facility] | Alanis, | Medication Refill | | 2017 | | MEDICINE [address] [place] [address] | MD Petrona | | | | | [facility] | [address] [place] [address] | | | | | [place] [address] | [place] [address] | | | | | [phone] | [phone] | | | | | | | [...] | | | | | [place] [address] | | | | | | [phone] | | | | | | | | +--------+---------+ + + + | 12/20/ | Office | Otolaryngology | Ulysses Genao MD | | | 2019 | Visit | | [address] | | | | | | [address] [place], | | | | | | [place] [address] | | | | | | [phone] | | | | | | | | +--------+---------+ + + + | 02/15/ | Office | Internal Medicine | Alanis, | | | 2019 | Visit | | MD Petrona | | | | | | [address] [place] [address] [place] | | | | | | [place] [address] | | | | | | [phone] | | | | | | | | +--------+---------+ + + + documented as of this encounter Visit Diagnoses Not on filedocumented in this encounter"
--- OUTSIDE RECORDS SUMMARY | ~2019-11-17 | XMS | Encounter Summary ---
Demographics + + + | Address | [address] | | | [place] [address] | + + + | Home Phone [...] Providers + +------+ + | Care Receiving Manager Name | Role | Phone | [...] | | | [facility] | [place], [place] | Bypass Surgery November | | | | [address] | [address] | 2003; | | | | [address] | [phone] | Hypothyroidism; | | | | [facility] | | Essential | | | | Physician's | | hypertension 401.9; | | | | Pavilion [place], | | Iron Deficiency | | | | [place] [address] | | | | | | [phone] | | | +--------+---------+ + + + [...] 300 mg) by oral route once daily wvdllzeyzt-ovecietgofapw-tsaascdi (FIORICET) 50-325-40 mg Oral Tablet take 2 [...]
--- OUTSIDE RECORDS SUMMARY | ~2019-11-17 | XMS | Encounter Summary ---
Demographics + + + | Address | [address] | | | [place] [address] | + + + | Home Phone [...] + +------+ + | Care Retail Sales Associate Name | Role | Phone | + +------+ + | Pedrito Gutierrez MD | PCP | | + +------+ + Encounter Details +--------+ + + + + | Date | Type | Department | Care Team | Description | +--------+ + + + + | 05/20/ | Telephone | Digestive Health | Rohan Foley MD | | | 2005 | | [place] [facility] [address] | | | | | | [address] | | | | | | Mailcode: Center | | | | | | for Health and | | | | | | [facility], Building [address] | | | | | | [place], [place] | | | | | | [address] | | | | | | [phone] | | | +--------+ + + + [...]
--- OUTSIDE RECORDS SUMMARY | ~2019-11-17 | XMS | Encounter Summary ---
Demographics + + + | Address | [address] | | | [place] [address] | + + + | Home Phone [...] Team Providers + +------+ + | Care Leno Sewer Name | Role | Phone | [...] + + | 03/10/ | Telephone | [facility] | Alanis, | Grief/ Loss | | 2018 | | MEDICINE [address] [place] [address] | MD Petrona | | | | | [facility] | [address] [place] [place] [address] | | | | | [place] [address] | [place] [address] | | | | | [phone] | [phone] | | | | | | | [...] | | | | | [place] [address] | | | | | | [phone] | | | | | | | | +--------+---------+ + + + | 12/20/ | Office | Otolaryngology | Ulysses Genao MD | | | 2019 | Visit | | [address] | | | | | | [address] [place], | | | | | | [place] [address] | | | | | | [phone] | | | | | | | | +--------+---------+ + + + | 02/15/ | Office | Internal Medicine | Alanis, | | | 2019 | Visit | | MD Petrona | | | | | | [address] [place] | | | | | | [place] [address] | | | | | | [phone] | | | | | | | | +--------+---------+ + + + documented as of this encounter Visit Diagnoses Not on filedocumented in this encounter"
--- OUTSIDE RECORDS SUMMARY | ~2019-11-17 | XMS | Encounter Summary ---
Demographics + + + | Address | [address] | | | [place] [address] | + + + | Home Phone [...] Providers + +------+ + | Care Supervisor Mill Name | Role | Phone | [...] Required | | paroxysmal | [address] | [facility] | | | | | positional | [address] | [address] | | | | | vertigo, | [place] | AVE | | | | | left | [place], [place] | [place], [place] | | | | | Vertigo of | [address] | [address] | | | | | central | Phone: | Phone: | | | | | origin, left | [phone] | [phone] | | | | | | Fax: | Fax: | | | | | | [phone] | [phone] | +--------+ + + + + + + + | Scheduling Instructions | + + | Patient is going to be having an Tayler maneuver done and at [facility]. | + + Encounter Details +--------+ + + + + | Date | Type | Department | Care Team | Description | +--------+ + + + + | 12/11/ | Orders Only | [facility] | Ulysses Genao MD | Benign paroxysmal | | 2015 | | OTOLARYNGOLOGY [address] | [address] | positional vertigo, | | | | [address] | [address] [place], | left (Primary Dx); | | | | [place] | [place] [address] | Vertigo of central | | | | [address] | [phone] | origin, left | | | | [phone] | | | +--------+ + + + [...] | | | | | [place] [address] | | | | | | [phone] | | | | | | | | +--------+---------+ + + + | 12/20/ | Office | Otolaryngology | Ulysses Genao MD | | | 2019 | Visit | | [address] | | | | | | [address] [place], | | | | | | [place] [address] | | | | | | [phone] | | | | | | | | +--------+---------+ + + + | 02/15/ | Office | Internal Medicine | Alanis, | | | 2019 | Visit | | MD Petrona | | | | | | [address] [place] | | | | | | [place] [address] | | | | | | [phone] | | | | | | | [...]
--- OUTSIDE RECORDS SUMMARY | ~2019-11-17 | XMS | Encounter Summary ---
Demographics + + + | Address | [address] | | | [place] [address] | + + + | Home Phone [...] Team Providers + +------+ + | Care Geothermal Electrical Engineer Name | Role | Phone | [...] + | 06/16/ | Clinical | [facility] | Alanis, | B12 deficiency | | 2020 | Support | MEDICINE [address] [place] [address] | MD Petrona | (Primary Dx) | | | | [facility] | [address] [place] [address] | | | | | [place] [address] | [place] [address] | | | | | [phone] | [phone] | | | | | | | [...] of this encounter Progress Notes Shanta Whaley, Front Window Cashier - 06/16/2019 10:30 AM PSTFormatting of this note calderon ht be different from the original. Administrations This Visit cyanocobalamin (VITAMIN B-12) injection 1,000 mcg Admin Date 06/16/2019 Action Given Dose 1000 mcg Route Intramuscular Administered By Shanta Whaley Front Window Cashier Patient tolerated injection well, advised to schedule [...] | | | | | [place] [address] | | | | | | [phone] | | | | | | | | +--------+---------+ + + + | 12/20/ | Office | Otolaryngology | Ulysses Genao MD | | | 2019 | Visit | | [address] | | | | | | [address] [place], | | | | | | [place] [address] | | | | | | [phone] | | | | | | | | +--------+---------+ + + + | 02/15/ | Office | Internal Medicine | Alanis, | | | 2019 | Visit | | MD Petrona | | | | | | [address] [place] | | | | | | [place] [address] | | | | | | [phone] | | | | | | | [...]
--- OUTSIDE RECORDS SUMMARY | ~2019-11-17 | XMS | Encounter Summary ---
Demographics + + + | Address | [address] | | | [place] [address] | + + + | Home Phone [...] Providers + +------+ + | Care Block Mason Name | Role | Phone [...] Pain; Status Post | | | | [place], [place] | | Bariatric Surgery | | | | [address] | | | | | | [phone] | | | +--------+------+ + + + [...] Performed At | + + + | [id number] Estimated GFR > 60 mL/min/1.73 sq m if non- | [facility] | | Icelandic [id number] Estimated GFR > 60 mL/min/1.73 sq m if | DEPARTMENT OF | | Icelandic GFR is estimated using the MDRD equation [...] [facility] | [address] | [place] [address] | | | PATHOLOGY | [address] | | | + + + + + | [facility] DEPARTMENT | [address] | [place] [address] | | | PATHOLOGY | [address] | | | + + + + + INR (08/28/2008 3:31 PM PDT) + + + + + + | Component | Value | Ref Range | Performed | Pathologist | | | | | At | Signature | + + + + + + | INR | 0.96Comment: | 0.90 - 1.20 INR | [facility] | | | | INR Therapeutic [...] | [facility] | [address] [facility] | [place] [address] | | | PATHOLOGY | [address] | | | + + + + + | [facility] DEPARTMENT OF | [address] | [place] [address] | | | PATHOLOGY | [address] | | | + + + + + documented in this encounter Visit Diagnoses + + | Diagnosis | + + | Chronic abdominal pain Abdominal pain, unspecified site | + + | Status post bariatric surgery Bariatric surgery status | + + documented in this encounter"
--- OUTSIDE RECORDS SUMMARY | ~2019-11-17 | XMS | Encounter Summary ---
Demographics + + + | Address | [address] | | | [place] [address] | + + + | Home Phone [...] + +------+ + | Care Ice Cream Freezer Assistant Name | Role | Phone | [...] | | | | [address] Physician's | [place], [place] | | | | | [address] | [address] | | | | | [place], [place] | [phone] | | | | | [address] | | | | | | [phone] | | | +--------+ + + + [...]
--- OUTSIDE RECORDS SUMMARY | ~2019-11-17 | XMS | Encounter Summary ---
Demographics + + + | Address | [address] | | | [place] [address] | + + + | Home Phone [...] Providers + +------+ + | Care Shellfish Sorter Name | Role | Phone | [...] | | | | [place], | [address] | | | | | | [place] | Phone: | | | | | | [address] | [phone] | | | | | | Phone: | Fax: | | | | | | [phone] | [phone] | | | | | | Fax: | | | | | | | [phone] | | +--------+ + + + + + Reason for Visit +--------+ + | Reason | Comments | +--------+ + | Other | bladder/ bowel issues | +--------+ + Encounter Details +--------+---------+ + + + | Date | Type | Department | Care Team | Description | +--------+---------+ + + + | 10/15/ | Office | [facility] | Alanis, | Mixed stress and | | 2017 | Visit | MEDICINE [address] [place] [address] | MD Petrona | urge urinary | | | | [facility] | [address] [place] [address] | incontinence | | | | [place] [address] | [place] [address] | (Primary Dx); [place] | | | | [phone] | [phone] | (obstructive sleep | | | | [...] Patient presents with Other bladder/ bowel issues [facility] Belinda Meehan is a 57 [...] 1,000 mcg 1,000 mcg Intramuscular Q30 Days [facility] steve-Russell Thapa MD 1,000 mcg at 10/15/17 1149 ALLERGIES Allergies Allergen Reactions Codeine Sulfate Nausea Only Levofloxacin Hives, Itching and Rash Amitriptyline Hcl Other (See Comments) Confused and questionable for seizures Lvkimmqvbc-Jysj-Etipvpng Cephalexin Hives Duloxetine Migraines and nausea Ketorolac Hives Morphine Swelling Ropinirole Hcl Hives Tramadol Hcl Nausea Only Raophhqevd-Osot-Oanngtss Hives and Rash Ciprofloxacin Hives and Rash [...] warrant a GI consult. - * [facility] Gastroenterology - AMB Referral; Future 5. S/P gastric bypass - * [facility] - AMB Referral; Future 6. Nausea - ondansetron (ZOFRAN ODT) 4 mg disintegrating tablet; Take 1 tablet by mouth every 6 hours . Dispense: 120 tablet; Refill: 3 FOLLOW-UP Return in about 3 months (around 01/15/2018). Note: Parts of this documentwere created using FlowCo speech recognition software. As a r esult, [...] | | | | | [place] [address] | | | | | | [phone] | | | | | | | | +--------+---------+ + + + | 12/20/ | Office | Otolaryngology | Ulysses Genao MD | | | 2019 | Visit | | [address] | | | | | | [address] [place], | | | | | | [place] [address] | | | | | | [phone] | | | | | | | | +--------+---------+ + + + | 02/15/ | Office | Internal Medicine | Alanis, | | | 2019 | Visit | | MD Petrona | | | | | | [address] | | | | | | [place] [address] | | | | | | [phone] | | | | | | | [...]
--- OUTSIDE RECORDS SUMMARY | ~2019-11-17 | XMS | Encounter Summary ---
Demographics + + + | Address | [address] | | | [place] [address] | + + + | Home Phone [...] + +------+ + | Care Technology Applications Teacher Name | Role | Phone | [...]
--- OUTSIDE RECORDS SUMMARY | ~2019-11-17 | XMS | Encounter Summary ---
Demographics + + + | Address | [address] | | | [place] [address] | + + + | Home Phone [...] Providers + +------+ + | Care Motor Lodge Clerk Name | Role | Phone | [...] Refill Request | | 2008 | | [place] [address] | [address] | (Sucralfate) | | | | Bethanie Mailcode: CH4S | [facility] | | | | | [facility] | [place], [place] | | | | | and [place], | [address] | | | | | [facility] | [phone] | | | | | Floor [place], [place] | | | | | | [address] | | | | | | [phone] | | | +--------+--------+ + + + [...]
--- OUTSIDE RECORDS SUMMARY | ~2019-11-17 | XMS | Encounter Summary ---
Demographics + + + | Address | [address] | | | [place] [address] | + + + | Home Phone [...] Providers + +------+ + | Care Dry Kiln Burner Name | Role | Phone [...] [address] | | | | | [place], [place] | [place], [place] | | | | | [address] | [address] | | | | | [phone] | [phone] | | | | | | | [...] [facility] | [address] | [place] [address] | | | PATHOLOGY | [address] | | | + + + + + | [facility] | [address] | [place] [address] | | | PATHOLOGY | [address] [...] DEPARTMENT OF | [address] | [place] [address] | | | PATHOLOGY | [address] | | | + + + + + | [place] DEPARTMENT OF | [address] | [place] [address] | | | PATHOLOGY | [address] [...] [facility] DEPARTMENT OF | [address] [facility] | [place] [address] | | | PATHOLOGY | [address] | | | + + + + + | [facility] DEPARTMENT OF | [address] [facility] | [place] [address] | | | PATHOLOGY | [address] [...] + | [facility] | [address] [place] [address] | [place] [address] | | | PATHOLOGY | [address] | | | + + + + + | [facility] DEPARTMENT OF | [facility] | [place] [address] | | | PATHOLOGY | [address] | | | + + + + + documented in this encounter Visit Diagnoses Not on filedocumented in this encounter"
--- OUTSIDE RECORDS SUMMARY | ~2019-11-17 | XMS | Encounter Summary ---
Demographics + + + | Address | [address] | | | [place] [address] | + + + | Home Phone [...] Providers + +------+ + | Care Credit Card Analyst Name | Role | Phone | [...] + + | 11/03/ | Telephone | [facility] | Alanis, | Headache | | 2019 | | MEDICINE [address] [place] [address] | MD Petrona | | | | | [facility] | [address] [place] [address] | | | | | [place] [address] | [place] [address] | | | | | [phone] | [phone] | | | | | | | [...] | | | | | [place] [address] | | | | | | [phone] | | | | | | | | +--------+---------+ + + + | 12/20/ | Office | Otolaryngology | Ulysses Genao MD | | | 2019 | Visit | | [address] | | | | | | [address] [place], | | | | | | [place] [address] | | | | | | [phone] | | | | | | | | +--------+---------+ + + + | 02/15/ | Office | Internal Medicine | Alanis, | | | 2019 | Visit | | MD Petrona | | | | | | [address] | | | | | | [place] [address] | | | | | | [phone] | | | | | | | | +--------+---------+ + + + documented as of this encounter Visit Diagnoses Not on filedocumented in this encounter"
--- OUTSIDE RECORDS SUMMARY | ~2019-11-17 | XMS | Encounter Summary ---
Demographics + + + | Address | [address] | | | [place] [address] | + + + | Home Phone [...] Providers + +------+ + | Care Wallpaper Inspector Name | Role | Phone | [...] | [place] [address] | [place]ina [place], | Region; Neck Pain; | | | | [address] Mailcode: | [place] [address] | Herniated Lumbar | | | | CH[facility] | | Intervertebral Disc | | | | [facility] and He[facility], | | L4-5; Fibromyalgia | | | | | | syndrome [address] | | | | Floor [place], [place] | | | | | | [address] | | | | | | [phone] | | | +--------+---------+ + + + [...] August 12, 2006 Patient: Belinda Molly Meehan, [id number], 1960 I agree with the proposed Physical Therapy Treatment Plan. Provider: DELFINA MOLINA ANP Nathalia Keyes - [phone] 12:04 PM PST Physical Therapy Medicare Progress Note Date: 08/12/2006 Belinda Meehan [id number]. 1960 Start of Care: 06/23/2006 Referring Provider: [...]
--- OUTSIDE RECORDS SUMMARY | ~2019-11-17 | XMS | Encounter Summary ---
Demographics + + + | Address | [address] | | | [place] [address] | + + + | Home Phone [...] Providers + +------+ + | Care Rn Case Manager Hospice Name | Role | Phone | + +------+ + | Petrona Thapa | PCP | | | MD | | | + +------+ + Encounter Details +--------+ + + + + | Date | Type | Department | Care Team | Description | +--------+ + + + + | 10/04/ | Documentati | [facility] | Alanis, | | | 2019 | on | MEDICINE [address] | MD Petrona | | | | | [address] [place] | [address] [facility] | | | | | [place] [address] | [place] [address] | | | | | [phone] | [phone] | | | | | | | [...] | | | | | [place] [address] | | | | | | [phone] | | | | | | | | +--------+---------+ + + + | 12/20/ | Office | Otolaryngology | Ulysses Genao MD | | | 2019 | Visit | | [address] [place] | | | | | | [address] [place], | | | | | | [place] [address] | | | | | | [phone] | | | | | | | | +--------+---------+ + + + | 02/15/ | Office | Internal Medicine | Alanis, | | | 2019 | Visit | | MD Petrona | | | | | | [address] [place] | | | | | | [place] [address] | | | | | | [phone] | | | | | | | | +--------+---------+ + + + documented as of this encounter Visit Diagnoses Not on filedocumented in this encounter"
--- OUTSIDE RECORDS SUMMARY | ~2019-11-17 | XMS | Encounter Summary ---
Demographics + + + | Address | [address] | | | [place] [address] | + + + | Home Phone [...] Providers + +------+ + | Care Resident Caregiver Name | Role | Phone | [...] | | Center at [facility] [address] | INSURANCE CLAIMS EXAMINER [address] | | | | | Sara Kovacs | , [address] | | | | | Mailcode: Center | [place], [place] | | | | | [facility] and | [address] | | | | | Healing, [address] | [phone] | | | | | [place], [place] | | | | | | [address] | | | | | | [phone] | | | +--------+ + + + [...]
--- OUTSIDE RECORDS SUMMARY | ~2019-11-17 | XMS | Encounter Summary ---
Demographics + + + | Address | [address] | | | [place] [address] | + + + | Home Phone [...] Providers + +------+ + | Care Churn Operator Margarine Name | Role | Phone | + [...] + + | 04/25/ | Refill | [facility] | Alanis, | Medication Refill | | 2016 | | MEDICINE [address] [place] [address] | MD Petrona | | | | | [facility] | [address] [place] [address] | | | | | [place] [address] | [place] [address] | | | | | [phone] | [phone] | | | | | | | [...] | | | | | [place] [address] | | | | | | [phone] | | | | | | | | +--------+---------+ + + + | 12/20/ | Office | Otolaryngology | Ulysses Genao MD | | | 2019 | Visit | | [address] [place] | | | | | | [address] [place], | | | | | | [place] [address] | | | | | | [phone] | | | | | | | | +--------+---------+ + + + | 02/15/ | Office | Internal Medicine | Alanis, | | | 2019 | Visit | | MD Petrona | | | | | | [address] [place] [address] [address] | | | | | | [place] [address] | | | | | | [phone] | | | | | | | | +--------+---------+ + + + documented as of this encounter Visit Diagnoses Not on filedocumented in this encounter"
--- OUTSIDE RECORDS SUMMARY | ~2019-11-17 | XMS | Encounter Summary ---
[...] Providers + +------+ + | Care Integration Project Manager Name | Role | Phone [...] | | | OFFICE VISIT | | [address] Phone: | | | | | REGULAR | | [phone] | | | | | | | Fax: | | | | | | | [phone] | +--------+--------+ + + + + Encounter Details +--------+---------+ + + + | Date | Type | Department | Care Team | Description | +--------+---------+ + + + | 12/30/ | Office | [facility] | Elisabet Munson MS | Subjective tinnitus | | 2018 | Visit | AUDIOLOGY AND | CCC-A [address] | of left ear (Primary | | | | [facility] | [address] [place] | Dx) | | | | [address] | [place] [address] | | | | | [address] [place] | [phone] | | | | | [place] [address] | | | | | | [phone] | | | +--------+---------+ + + + [...] | | 2020 | Visit | | [facility] [address] | | | | | | [facility] | | | | | | [place] [address] | | | | | | [phone] | | | | | | | | +--------+---------+ + + + | 12/20/ | Office | Otolaryngology | Ulysses Genao MD | | | 2019 | Visit | | [address] | | | | | | [address] [place], | | | | | | [place] [address] | | | | | | [phone] | | | | | | | | +--------+---------+ + + + | 02/15/ | Office | Internal Medicine | Alanis, | | | 2019 | Visit | | MD Petrona | | | | | | [address] [place] | | | | | | [place] [address] | | | | | | [phone] | | | | | | | [...]
--- OUTSIDE RECORDS SUMMARY | ~2019-11-17 | XMS | Encounter Summary ---
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 | Visit | MEDICINE [address] | MD Petrona | cristi diarrhea (Primary | | | | [address] [place] | [address] [facility] | Dx); longterm | | | | [place] [address] | [place] [address] | prescription opiate | | | | [phone] | [phone] | use; Seasonal | | | | [...] | | | | | | [place] [address] | | | | | | [phone] | | | | | | | | +--------+---------+ + + + | 12/20/ | Office | Otolaryngology | Ulysses Genao MD | | | 2019 | Visit | | [address] [place] | | | | | | [address] [place], | | | | | | [place] [address] | | | | | | [phone] | | | | | | | | +--------+---------+ + + + | 02/15/ | Office | Internal Medicine | Alanis, | | | 2019 | Visit | | MD Petrona | | | | | | [address] [place] | | | | | | [place] [address] | | | | | | [phone] | | | | | | | [...] mL/min/1.73m2 | Yudy NATHAN | | | SALVADOREAN | RATE,ESTIMATED | | MEDICAL | | | | mL/min/1.11v1Adxh than | | CENTER - | | [...] + | [facility] | [address] | [place] | [phone] | | [facility] | | [address] | | | - LABORATORY | | [...] [address] | [place] | [phone] | | [facility] | | [address] | | | - LABORATORY | | | | + + + + + documented in this encounter Visit Diagnoses + + | Diagnosis | + + | Antibiotic-associated diarrhea - Primary Diarrhea | + + | terminologist prescription opiate use | + + | [...] | | | First dose on [facility] 10/15/17 at 1215 | | | [...]
--- OUTSIDE RECORDS SUMMARY | ~2019-11-17 | XMS | Encounter Summary ---
Demographics + + + | Address | [address] | | | [place] [address] | + + + | Home Phone [...] Team Providers + +------+ + | Care Pillow Cleaner Name | Role | Phone | [...] + + | 08/24/ | Telephone | [facility] INTER[facility] | Alanis, | Toe Pain | | 2019 | | MEDICINE [address] [place] [address] | MD Petrona | | | | | [facility] | [address] [place] [address] | | | | | [place] [address] | [place] [address] | | | | | [phone] | [phone] | | | | | | | [...] | | | | | [place] [address] | | | | | | [phone] | | | | | | | | +--------+---------+ + + + | 12/20/ | Office | Otolaryngology | Ulysses Genao MD | | | 2019 | Visit | | [address] [place] | | | | | | [address] [place], | | | | | | [place] [address] | | | | | | [phone] | | | | | | | | +--------+---------+ + + + | 02/15/ | Office | Internal Medicine | Alanis, | | | 2019 | Visit | | MD Petrona | | | | | | [address] [place] | | | | | | [place] [address] | | | | | | [phone] | | | | | | | [...]
--- OUTSIDE RECORDS SUMMARY | ~2019-11-17 | XMS | Encounter Summary ---
Demographics + + + | Address | [address] | | | [place] [address] | + + + | Home Phone [...] Providers + +------+ + | Care Outside Installation Machinist Name | Role | Phone | + +------+ + | Petrona Thapa | PCP | | | MD | | | + +------+ + Encounter Details +--------+ + + + + | Date | Type | Department | Care Team | Description | +--------+ + + + + | 09/06/ | Abstract | [facility] | Provider, | | | 2018 | | GASTROENTEROLOGY | MD Colin [address] | | | | | [address] [facility] | Sulma Body | | | | | [address] [place] [address] | [place] [address] | | | | | [address] | | | | | | [phone] | | | +--------+ + + + [...] | | | | | [place] [address] | | | | | | [phone] | | | | | | | | +--------+---------+ + + + | 12/20/ | Office | Otolaryngology | Ulysses Genao MD | | | 2019 | Visit | | [address] [place] | | | | | | [address] [place], | | | | | | [place] [address] | | | | | | [phone] | | | | | | | | +--------+---------+ + + + | 02/15/ | Office | Internal Medicine | Alanis, | | | 2019 | Visit | | MD Petrona | | | | | | [address] [place] | | | | | | [place] [address] | | | | | | [phone] | | | | | | | [...]
--- OUTSIDE RECORDS SUMMARY | ~2019-11-17 | XMS | Encounter Summary ---
Demographics + + + | Address | [address] | | | [place] [address] | + + + | Home Phone [...] Providers + +------+ + | Care Neonatal Icu Coordinator Name | Role | Phone | [...]
--- OUTSIDE RECORDS SUMMARY | ~2019-11-17 | XMS | Encounter Summary ---
Demographics + + + | Address | [address] | | | [place] [address] | + + + | Home Phone [...] Providers + +------+ + | Care Furniture Dipper Name | Role | Phone | [...] | | MD [address] | [place] [address] | | | | | [address] | Phone: | | | | | | [place], | [phone] | | | | | | [place] | Fax: | | | | | | [address] | [phone] | | | | | | Phone: | | | | | | | [phone] | | | | | | | Fax: | | | | | | | [phone] | | +--------+ + + + + + Reason for Visit + + + | Reason | Comments | + + + | Medication Question | | + + + Encounter Details +--------+ + + + + | Date | Type | Department | Care Team | Description | +--------+ + + + + | 08/13/ | Telephone | [facility] | Alanis, | Medication Question | | 2018 | | MEDICINE [address] [place] [address] | MD Petrona | | | | | [facility] | [address] [place] [address] | | | | | [place] [address] | [place] [address] | | | | | [phone] | [phone] | | | | | | | [...] | | | | | [place] [address] | | | | | | [phone] | | | | | | | | +--------+---------+ + + + | 12/20/ | Office | Otolaryngology | Ulysses Genao MD | | | 2019 | Visit | | [address] [place] | | | | | | [address] [place], | | | | | | [place] [address] | | | | | | [phone] | | | | | | | | +--------+---------+ + + + | 02/15/ | Office | Internal Medicine | Alanis, | | | 2019 | Visit | | MD Petrona | | | | | | [address] | | | | | | [place] [address] | | | | | | [phone] | | | | | | | [...]
--- OUTSIDE RECORDS SUMMARY | ~2019-11-17 | XMS | Encounter Summary ---
Demographics + + + | Address | [address] | | | [place] [address] | + + + | Home Phone [...] Providers + +------+ + | Care Senior Ui Web Developer Name | Role | Phone [...] + + | 09/14/ | Clinical | [facility] | Alanis, | B12 deficiency | | 2019 | Support | MEDICINE [address] [place] [address] | MD Petrona | | | | | [facility] | [address] [place] [address] | | | | | [place] [address] | [place] [address] | | | | | [phone] | [phone] | | | | | | | [...] as of this encounter Progress Teresa Tolbert, Plasma Center Technician - 09/15/2019 10:15 AM PDTFormatting of this note calderon ht be different from the original. Administrations This Visit cyanocobalamin (VITAMIN B-12) injection 1,000 mcg Admin Date 09/15/2019 Action Given Dose 1000 mcg Route Intramuscular Administered By Teresa Mitchell, Plasma Center Technician do cumented in this encounter Plan [...] Vijaya | | | | | | [place] [address] | | | | | | [phone] | | | | | | | | +--------+---------+ + + + | 12/20/ | Office | Otolaryngology | Uylsses Genao MD | | | 2019 | Visit | | [address] | | | | | | [address] [place], | | | | | | [place] [address] | | | | | | [phone] | | | | | | | | +--------+---------+ + + + | 02/15/ | Office | Internal Medicine | Alanis, | | | 2019 | Visit | | MD Petrona | | | | | | [address] [place] | | | | | | [place] [address] | | | | | | [phone] | | | | | | | [...]
--- OUTSIDE RECORDS SUMMARY | ~2019-11-17 | XMS | Encounter Summary ---
Demographics + + + | Address | [address] | | | [place] [address] | + + + | Home Phone [...] Providers + +------+ + | Care Chief Telephone Operator Name | Role | Phone | [...] + + | 02/04/ | Telephone | [facility] | Emmy-Kamlesh, | Other (Kidney pain ) | | 2017 | | MEDICINE [address] | MD Petrona | | | | | [facility] | [address] [place] [address] | | | | | [place] [address] | [place] [address] | | | | | [phone] | [phone] | | | | | | | [...] | | | | | [place] [address] | | | | | | [phone] | | | | | | | | +--------+---------+ + + + | 12/20/ | Office | Otolaryngology | Ulysses Genao MD | | | 2019 | Visit | | [address] [place] | | | | | | [address] [place], | | | | | | [place] [address] | | | | | | [phone] | | | | | | | | +--------+---------+ + + + | 02/15/ | Office | Internal Medicine | Alanis, | | | 2019 | Visit | | MD Petrona | | | | | | [address] [place] [address] [address] | | | | | | [place] [address] | | | | | | [phone] | | | | | | | | +--------+---------+ + + + documented as of this encounter Visit Diagnoses Not on filedocumented in this encounter"
--- OUTSIDE RECORDS SUMMARY | ~2019-11-17 | XMS | Encounter Summary ---
Demographics + + + | Address | [address] | | | [place] [address] | + + + | Home Phone [...] Providers + +------+ + | Care Civil Engineering Assistant Name | Role | Phone | [...] [address] | | | | | | [place], [place] | | | | | | [address] | | | | | | [phone] | | | +--------+ + + + [...]
--- OUTSIDE RECORDS SUMMARY | ~2019-11-17 | XMS | Encounter Summary ---
Demographics + + + | Address | [address] | | | [place] [address] | + + + | Home Phone [...] Providers + +------+ + | Care Steel Pickler Name | Role | Phone | + [...] as of this encounter Progress Notes Interface, Contract Lead In - 01/12/2005 6:46 AM [facility] Date: 11/27/2003 Clinic: Surgery Clinic Subjective: This patient of Dr. Chris Padgett walks into clinic today to discuss her laparoscopic incisions and a lesion on her lower back. She was discharged from [facility] approximately 36 hours ago following a laparoscopic [...] discharge and would like to proceed to [place], where her home is. She agrees to [...] additional questions. Liliya Kirkpatrick. NELLY / SHARIF [id number] / [id number] / [id number] / [id number] Tdocumented in this encounter Plan of Treatment Not on filedocumented as of this encounter Visit Diagnoses Not on filedocumented in this encounter"
--- OUTSIDE RECORDS SUMMARY | ~2019-11-17 | XMS | Encounter Summary ---
Demographics + + + | Address | [address] | | | [place] [address] | + + + | Home Phone [...] Team Providers + +------+ + | Care Landfill Gas Technician Name | Role | Phone | + +------+ + | Petrona Thapa | PCP | | | MD | | | + +------+ + Reason for Visit + + + | Reason | Comments | + + + | Results, Imaging | outside imaging report from [facility] | + + + Encounter Details +--------+ + + + + | Date | Type | Department | Care Team | Description | +--------+ + + + + | 03/02/ | Telephone | [facility] | Alanis, | Results, Imaging | | 2019 | | MEDICINE [address] | MD Petrona | (outside imaging | | | | Street [place] | [address] [facility] | report from St. | | | | [place] [address] | [facility] [place] [address] | [facility]) | | | | [phone] | [phone] | | | | | | | [...] | [facility] [address] | | | | | | [address] [place] | | | | | | [place] [address] | | | | | | [phone] | | | | | | | | +--------+---------+ + + + | 12/20/ | Office | Otolaryngology | Ulysses Genao MD | | | 2019 | Visit | | [address] | | | | | | [address] [place], | | | | | | [place] [address] | | | | | | [phone] | | | | | | | | +--------+---------+ + + + | 02/15/ | Office | Internal Medicine | Alanis, | | | 2019 | Visit | | MD Petron[place] | | | | | | [address] [place] | | | | | | [place] [address] | | | | | | [phone] | | | | | | | | +--------+---------+ + + + documented as of this encounter Visit Diagnoses Not on filedocumented in this encounter"
--- OUTSIDE RECORDS SUMMARY | ~2019-11-17 | XMS | Encounter Summary ---
Demographics + + + | Address | [address] | | | [place] [address] | + + + | Home Phone [...] Providers + +------+ + | Care Barber Stylist Name | Role | Phone | + [...] + + | 09/13/ | Telephone | [facility] INTER[facility] | Alanis, | Appointment | | 2019 | | MEDICINE [address] [place] [address] | MD Petrona | | | | | [facility] | [address] [place] [address] | | | | | [place] [address] | [place] [address] | | | | | [phone] | [phone] | | | | | | | [...] | | | | | [place] [address] | | | | | | [phone] | | | | | | | | +--------+---------+ + + + | 12/20/ | Office | Otolaryngology | Ulysses Genao MD | | | 2020 | Visit | | [address] [place] | | | | | | [address] [place], | | | | | | [place] [address] | | | | | | [phone] | | | | | | | | +--------+---------+ + + + | 02/15/ | Office | Internal Medicine | Alanis, | | | 2019 | Visit | | MD Petron[place] | | | | | | [address] | | | | | | [place] [address] | | | | | | [phone] | | | | | | | | +--------+---------+ + + + documented as of this encounter Visit Diagnoses Not on filedocumented in this encounter"
--- OUTSIDE RECORDS SUMMARY | ~2019-11-17 | XMS | Encounter Summary ---
Demographics + + + | Address | [address] | | | [place] [address] | + + + | Home Phone [...] Team Providers + +------+ + | Care Crosstie Inspector Name | Role | Phone | [...] | Procedures | [address] | [place] | | | | | CONSULT TO | [facility] | [address] | | | | | GI PROCEDURE | Rd | floor | | | | | UNIT: SM | [place], [place] | [place], [place] | | | | | [place] | [address] | [address] | | | | | [place] | Phone: | Phone: | | | | | ENDOSCOPY | [phone] | [phone] | | | | | | | Fax: | | | | | | | [phone] | +--------+--------+ + + + + Consultation [...] | | | | | Procedures | [facility] | [place], [place] | | | | | CONSULT TO | Rd | [address] | | | | | PAIN CENTER | [place], [place] | | | | | | | [address] | | | | | | | Phone: | | | | | | | [phone] | | +--------+--------+ + + + + Encounter Details +--------+---------+ + + + | Date | Type | Department | Care Team | Description | +--------+---------+ + + + | 04/07/ | Office | [facility] | Carlos Arreola, | Iron Deficiency; | | 2005 | Visit | Gastroenterology/Hep | [address] | Chronic Abdominal | | | | atology [address] | [facility] | Pain | | | | [address] | [place] [address] | | | | | Mailcode: PV310 | [phone] | | | | | [facility] | | | | | | [address] | | | | | | [place], [place] | | | | | | [address] | | | | | | [phone] | | | +--------+---------+ + + + [...] December reviewed and normal (past ed below). [facility] labs received and reviewed: neg O&P UPPER [...] HEPATIS NODES. Transcribed By: Armaan Rivera : [id number] : 1224 Approved By: CT ABDOMEN AND [...] HEPATIS NODES. Transcribed By: Armaan Mata : [id number] : 1224 Approved By: Carlos Benton - 3:59 PM PDTPt seen previously seen by tn for chronic pain and PK, returns to [...]
--- OUTSIDE RECORDS SUMMARY | ~2019-11-17 | XMS | Encounter Summary ---
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 SEWING INSPECTOR Brief Pain Inventory: Right Now: 9 Least [...] Physical therapy: Two days per week in [place] knees and both legs, shoulders and back [...] social history. Pending 08/30/07 DR Cadet in [facility]: right knee arthroplasty. Urology evaluation for ur [...] or questions. DELFINA MOLINA [facility] Mail code CH 4P [facility] and [facility] [address] [facility] [address] Ailyn Bello 08/13/19 08 8:52 [...]
--- OUTSIDE RECORDS SUMMARY | ~2019-11-17 | XMS | Encounter Summary ---
Demographics + + + | Address | [address] | | | [place] [address] | + + + | Home Phone [...] | | | | [address] [facility] | [place], [place] | | | | | [address] | [address] | | | | | [place], [place] | [phone] | | | | | [address] | | | | | | [phone] | | | +--------+ + + + [...] + + | Performing | Address | City[facility] | Phone Number | [...]
--- OUTSIDE RECORDS SUMMARY | ~2019-11-17 | XMS | Encounter Summary ---
Demographics + + + | Address | [address] | | | [place] [address] | + + + | Home Phone [...] Team Providers + +------+ + | Care Bottle Washing Machine Operator Name | Role | Phone [...] + + | 04/26/ | Refill | [facility] INTER[facility] | Alanis, | Medication Refill | | 2018 | | MEDICINE [address] [place] [address] | MD [place] | | | | | [facility] | [address] [place] [address] | | | | | [place] [address] | [place] [address] | | | | | [phone] | [phone] | | | | | | | [...] | | | | | [place] [address] | | | | | | [phone] | | | | | | | | +--------+---------+ + + + | 12/20/ | Office | Otolaryngology | Ulysses Genao MD | | | 2019 | Visit | | [address] | | | | | | [address] [place], | | | | | | [place] [address] | | | | | | [phone] | | | | | | | | +--------+---------+ + + + | 02/15/ | Office | Internal Medicine | Alanis, | | | 2019 | Visit | | MD [place]rona | | | | | | [address] [place] [address] [address] | | | | | | [place] [address] | | | | | | [phone] | | | | | | | | +--------+---------+ + + + documented as of this encounter Visit Diagnoses Not on filedocumented in this encounter"
--- OUTSIDE RECORDS SUMMARY | ~2019-11-17 | XMS | Encounter Summary ---
Demographics + + + | Address | [address] | | | [place] [address] | + + + | Home Phone [...] Providers + +------+ + | Care Court Supervisor Name | Role | Phone | [...] | | | | | | [address] | | | | | | [address] | | | | | | [phone] | | | +--------+ + + + [...] | | | | | [place] [address] | | | | | | [phone] | | | | | | | | +--------+---------+ + + + | 12/20/ | Office | Otolaryngology | Ulysses Genao MD | | | 2019 | Visit | | [address] [place] | | | | | | [address] [place], | | | | | | [place] [address] | | | | | | [phone] | | | | | | | | +--------+---------+ + + + | 02/15/ | Office | Internal Medicine | Alanis, | | | 2019 | Visit | | [facility] [place] | | | | | | [address] [place] | | | | | | [place] [address] | | | | | | [phone] | | | | | | | | +--------+---------+ + + + documented as of this encounter Visit Diagnoses Not on filedocumented in this encounter"
--- OUTSIDE RECORDS SUMMARY | ~2019-11-17 | XMS | Encounter Summary ---
Demographics + + + | Address | [address] | | | [place] [address] | + + + | Home Phone [...] Providers + +------+ + | Care Appliance Service Supervisor Name | Role | Phone [...] + + | 11/16/ | Telephone | [facility] | Alanis, | Lab Results | | 2019 | | MEDICINE [address] [place] [address] | MD Petrona | | | | | [facility] | [address] [place] [address] | | | | | [place] [address] | [place] [address] | | | | | [phone] | [phone] | | | | | | | [...] | | | | | [place] [address] | | | | | | [phone] | | | | | | | | +--------+---------+ + + + | 12/20/ | Office | Otolaryngology | Ulysses Genao MD | | | 2020 | Visit | | [address] [place] | | | | | | [address] [place], | | | | | | [place] [address] | | | | | | [phone] | | | | | | | | +--------+---------+ + + + | 02/15/ | Office | Internal Medicine | Alanis, | | | 2019 | Visit | | MD Petrona | | | | | | [address] [place] | | | | | | [place] [address] | | | | | | [phone] | | | | | | | | +--------+---------+ + + + documented as of this encounter Visit Diagnoses Not on filedocumented in this encounter"
--- OUTSIDE RECORDS SUMMARY | ~2019-11-17 | XMS | Encounter Summary ---
Demographics + + + | Address | [address] | | | [place] [address] [...] Providers + +------+ + | Care Parking Garage Manager Name | Role | Phone | [...] + + | 08/23/ | Refill | [facility] | Alanis, | Medication Refill | | 2017 | | MEDICINE [address] [place] [address] | MD Petrona | | | | | [facility] | [address] [place] [address] | | | | | [place] [address] | [place] [address] | | | | | [phone] | [phone] | | | | | | | [...] | | | | | [place] [address] | | | | | | [phone] | | | | | | | | +--------+---------+ + + + | 12/20/ | Office | Otolaryngology | Ulysses Genao MD | | | 2019 | Visit | | [address] [place] | | | | | | [address] [place], | | | | | | [place] [address] | | | | | | [phone] | | | | | | | | +--------+---------+ + + + | 02/15/ | Office | Internal Medicine | Alanis, | | | 2019 | Visit | | MD Petrona | | | | | | [address] [place] [address] [address] | | | | | | [place] [address] | | | | | | [phone] | | | | | | | | +--------+---------+ + + + documented as of this encounter Visit Diagnoses Not on filedocumented in this encounter"
--- OUTSIDE RECORDS SUMMARY | ~2019-11-17 | XMS | Encounter Summary ---
Demographics + + + | Address | [address] | | | [place] [address] | + + + | Home Phone [...] Providers + +------+ + | Care Clinic Office Coordinator Name | Role | Phone | [...] | | | central | [address] | [facility] | | | | | origin, | [address] | [address] | | | | | unspecified | [place] | AVE | | | | | laterality | [place] | [place] | | | | | Procedures | [address] | [address] | | | | | MRI Brain w | Phone: | Phone: | | | | | wo Contrast | [phone] | [phone] | | | | | NE MRI | Fax: | Fax: | | | | | BRAIN COMBO | [phone] | [phone] | +--------+--------+ + + + + Reason [...] | | escu | [address] | [place] [address] | | | | | Procedures | [place], | Phone: | | | | | OFFICE VISIT | [place] | [phone] | | | | | REGULAR | [address] | Fax: | | | | | | Phone: | [phone] | | | | | | [phone] | | | | | | | Fax: | | | | | | | [phone] | | +--------+--------+ + + + + Encounter Details +--------+---------+ + + + | Date | Type | Department | Care Team | Description | +--------+---------+ + + + | 10/18/ | Office | [facility] | Ulysses Dsouza MD | Vertigo of northfork | | 2015 | Visit | OTOLARYNGOLOGY [address] | [address] | origin, unspecified | | | | [address] | [address] [place], | laterality (Primary | | | | [place], [place] | [place] [address] | Dx) | | | | [address] | [phone] | | | | | [phone] | | | +--------+---------+ + + + [...] MD - 10/18/2014 10:50 AM PDT [facility] OTOLARY[facility]Y [address] [facility] [address] OFFICE NOTE ULYSSES DSOUZA MD Patient: BELINDA MEEHAN Admitting: MR #: [id number] LOC: PT TYPE: Adm Date: 10/18/2014 : [...] 10/18/2014 10:50:30 Transcribed on 10/18/2014 11:06:48 by [facility] job# [id number] Confirmation #: [id number] signed by Ulysses Dsouza MD at 10/18/2014 12:48 PM PDT Ulysses Dsouza MD - 10/18/2014 10:45 AM PDTSee dictation # [id number] signed by Ulysses Dsouza MD at 10/18/2014 [...] | | | | | [place] [address] | | | | | | [phone] | | | | | | | | +--------+---------+ + + + | 12/20/ | Office | Otolaryngology | Ulysses Dsouza MD | | | 2019 | Visit | | [address] [place] | | | | | | [address] [place], | | | | | | [place] [address] | | | | | | [phone] | | | | | | | | +--------+---------+ + + + | 02/15/ | Office | Internal Medicine | Alanis, | | | 2019 | Visit | | MD Petrona | | | | | | [address] [place] | | | | | | [place] [address] | | | | | | [phone] | | | | | | | [...]
--- OUTSIDE RECORDS SUMMARY | ~2019-11-17 | XMS | Encounter Summary ---
Demographics + + + | Address | [address] | | | [place] [address] | + + + | Home Phone [...] Providers + +------+ + | Care Rn Mds Coordinator Name | Role | Phone | [...] ANP | | | | | [facility] | | | | | | [address] | | | | | | Mailcode: CH15P | | | | | | [facility] | | | | | | and Healing, | | | | | | Building | | | | | | Floor [place], [place] | | | | | | [address] | | | | | | [phone] | | | +--------+ + + + [...]
--- OUTSIDE RECORDS SUMMARY | ~2019-11-17 | XMS | Encounter Summary ---
Demographics + + + | Address | [address] | | | [place] [address] | + + + | Home Phone [...] Providers + +------+ + | Care Commercial Agent Name | Role | Phone | [...] Rehabilitatio | syndrome of | i, | [place] | | | | n | right | Petrona | [place], | | | | | shoulder | , MD [address] | [place] [address] | | | | | Procedures | [address] | Phone: | | | | | PT | [place], | [phone] | | | | | | [place] | Fax: | | | | | | [address] | [phone] | | | | | | Phone: | | | | | | | [phone] | | | | | | | Fax: | | | | | | | [phone] | | +--------+ + + + + [...] + + | 09/22/ | Office | [facility] | Alanis, | Impingement syndrome | | 2018 | Visit | MEDICINE [address] | MD Petrnoa | of right shoulder | | | | [address] [place] | [address] [place] | (Primary Dx); Chest | | | | [place] [address] | [place] [address] | pain, unspecified | | | | [phone] | [phone] | type | | | | | [...] (See Comments) Confused and questionable for seizures Gueyeyccgs-Gqmv-Pppxnufp Cephalexin Hives Duloxetine Migraines and nausea Ketorolac Hives Morphine Swelling Ropinirole Hcl Hives Tramadol Hcl Nausea Only Rbjajzltwf-Mnfl-Miaayiea Hives and Rash Ciprofloxacin Hives and Rash [...] Right 2 + Vw; Future - * [facility] Physical Therapy - AMB Referral; Future 2. Chest pain, unspecified type - nitroglycerin (NITROSTAT) 0.4 mg SL tablet; Place 1 tablet under the tongue every 5 minut es as needed for Chest pain. Dispense: 25 tablet; Refill: 3 FOLLOW-UP Return in about 6 months (around 03/24/2018). Note: Parts of this documentwere created using [employer] natural speech recognition software. As a r esult, [...] | | | | | [place] [address] | | | | | | [phone] | | | | | | | | +--------+---------+ + + + | 12/20/ | Office | Otolaryngology | Ulysses Genao MD | | | 2019 | Visit | | [address] [place] | | | | | | [address] [place], | | | | | | [place] [address] | | | | | | [phone] | | | | | | | | +--------+---------+ + + + | 02/15/ | Office | Internal Medicine | Alanis, | | | 2019 | Visit | | MD Petrona | | | | | | [address] [place] | | | | | | [place] [address] | | | | | | [phone] | | | | | | | [...]
--- OUTSIDE RECORDS SUMMARY | ~2019-11-17 | XMS | Encounter Summary ---
Demographics + + + | Address | [address] | | | [place] [address] | + + + | Home Phone [...] +------+ + | Care Associate Professor Of Communication Name | Role | Phone | + [...] | | | [facility] | [place], [place] | | | | | [address] | [address] | | | | | [address] | [phone] | | | | | Physician's | | | | | | Pavilion, 1st floor | | | | | | [place], [place] | | | | | | [address] | | | | | | [phone] | | | +--------+ + + + [...]
--- OUTSIDE RECORDS SUMMARY | ~2019-11-17 | XMS | Encounter Summary ---
Demographics + + + | Address | [address] | | | [place] [address] | + + + | Home Phone [...] Providers + +------+ + | Care Utility Division Project Manager Name | Role | Phone [...] + + | 04/26/ | Refill | [facility] | Alanis, | Medication Refill | | 2017 | | MEDICINE [address] [place] [address] | MD Petrona | | | | | [facility] | [address] [place] [address] | | | | | [place] [address] | [place] [address] | | | | | [phone] | [phone] | | | | | | | [...] | | | | | [place] [address] | | | | | | [phone] | | | | | | | | +--------+---------+ + + + | 12/20/ | Office | Otolaryngology | Ulysses Genao MD | | | 2019 | Visit | | [address] [place] | | | | | | [address] [place], | | | | | | [place] [address] | | | | | | [phone] | | | | | | | | +--------+---------+ + + + | 02/15/ | Office | Internal Medicine | Alanis, | | | 2019 | Visit | | MD Petrona | | | | | | [address] [place] [address] [address] | | | | | | [place] [address] | | | | | | [phone] | | | | | | | | +--------+---------+ + + + documented as of this encounter Visit Diagnoses Not on filedocumented in this encounter"
--- OUTSIDE RECORDS SUMMARY | ~2019-11-17 | XMS | Encounter Summary ---
Demographics + + + | Address | [address] | | | [place] [address] | + + + | Home Phone [...] | | | | | | [address] [place], [place] | | | | | | [address] | | | | | | [phone] | | | +--------+ + + + [...]
--- OUTSIDE RECORDS SUMMARY | ~2019-11-17 | XMS | Encounter Summary ---
Demographics + + + | Address | [address] | | | [place] [address] | + + + | Home Phone [...] Team Providers + +------+ + | Care Backwinder Name | Role | Phone | + [...] | | | | Clinical Nutrition | [place], [place] | | | | | [address] | [address] | | | | | Loop Mailcode: OPC5 | [phone] | | | | | Outpatient Clinic | | | | | | [facility] | | | | | | [place] [address] | | | | | | [phone] | | | +--------+ + + + [...] | | | | | performed by [facility] | | | | | | Laboratories. | | | | + + + + + + + + | Specimen | + + | | + + + + + + + | Performing | Address | City/State/Zipcode | Phone Number | | Organization | | | | + + + + + | [facility] | [address] | [place], [place] | | | [facility] | | [address] | | + + + + + HEMOGLOBIN A1C (05/31/2002 3:21 PM PST) + + + + + + | Component | Value | Ref Range | Performed | Pathologist | | | | | At | Signature | + + + + + + | HEMOGLOBIN | 6.0Comment: Test | <7.1 % | | | | A1C | performed by [place] | | | | | | [facility] [...] + + + + + | [facility] | [address] | [place] [address] | | | LABORATORY | | | [...] [facility] DEPARTMENT [facility] | [address] | [place] [address] | | | PATHOLOGY | [address] | | | + + + + + | [facility] DEPARTMENT OF | [address] | [place] [address] | | | PATHOLOGY | [address] [...] + | [facility] | [address] | [place] [address] | | | PATHOLOGY | [address] | | | + + + + + | [facility] | [address] [facility] | [place] [address] | | | PATHOLOGY | [address] | | | + + + + + documented in this encounter Visit Diagnoses Not on filedocumented in this encounter"
--- OUTSIDE RECORDS SUMMARY | ~2019-11-17 | XMS | Encounter Summary ---
Demographics + + + | Address | [address] | | | [place] [address] | + + + | Home Phone [...] Providers + +------+ + | Care Cane Flume Chute Operator Name | Role | Phone | [...] [address] | | | | | | [place], [place] | | | | | | [address] | | | | | | [phone] | | | +--------+--------+ + + + [...]
--- OUTSIDE RECORDS SUMMARY | ~2019-11-17 | XMS | Encounter Summary ---
Demographics + + + | Address | [address] | | | [place] [address] | + + + | Home Phone [...] Providers + +------+ + | Care Ski Technician Name | Role | Phone | + +------+ + | Sulaiman Carrera MD | PCP | | + +------+ + Encounter Details +--------+ + + + + | Date | Type | Department | Care Team | Description | +--------+ + + + + | 08/09/ | Hospital | Diagnostic Imaging | | | | 2013 | Encounter | Services at [facility] | | | | | | [address] | | | | | | Clementina Winkler MOWANG | | | | | | [facility], [address] [place] [address] | | | | | | [place], [place] | | | | | | [address] | | | | | | [phone] | | | +--------+ + + + [...]
--- OUTSIDE RECORDS SUMMARY | ~2019-11-17 | XMS | Encounter Summary ---
Demographics + + + | Address | [address] | | | [place] [address] | + + + | Home Phone [...] + + | 05/04/ | Hospital | [facility] | Alanis, | Left hip pain | | 2017 | Encounter | [facility] | MD Petrona | | | | | [address] [place] | [address] [facility] | | | | | [place], [place] | [place] [address] | | | | | [address] | [phone] | | | | | [phone] | | | +--------+ + + + [...] | 180 | 1 | 04/28/20 | 07/20/201 | | 80 mg tablet | mouth [...] please prin t [facility] signed by Petrona Thapa MD [...] | | | | | [place] [address] | | | | | | [phone] | | | | | | | | +--------+---------+ + + + | 12/20/ | Office | Otolaryngology | Ulysses Genao MD | | | 2019 | Visit | | [address] [facility] | | | | | | [address] [place], | | | | | | [place] [address] | | | | | | [phone] | | | | | | | | +--------+---------+ + + + | 02/15/ | Office | Internal Medicine | Alanis, | | | 2019 | Visit | | MD Petrona | | | | | | [address] [place] | | | | | | [place] [address] | | | | | | [phone] | | | | | | | [...]
--- OUTSIDE RECORDS SUMMARY | ~2019-11-17 | XMS | Encounter Summary ---
Demographics + + + | Address | [address] | | | [place] [address] | + + + | Home Phone [...] Providers + +------+ + | Care Area Attendant Name | Role | Phone | [...] + + | 08/12/ | Refill | [facility] | Alanis, | Medication Refill | | 2017 | | MEDICINE [address] [place] [address] | MD Petrona | | | | | [facility] | [address] [place] [address] | | | | | [place] [address] | [place] [address] | | | | | [phone] | [phone] | | | | | | | [...] | | | | | [place] [address] | | | | | | [phone] | | | | | | | | +--------+---------+ + + + | 12/20/ | Office | Otolaryngology | Ulysses Genao MD | | | 2019 | Visit | | [address] [place] | | | | | | [address] [place], | | | | | | [place] [address] | | | | | | [phone] | | | | | | | | +--------+---------+ + + + | 02/15/ | Office | Internal Medicine | Alanis, | | | 2019 | Visit | | MD Petrona | | | | | | [address] [place] [address] [address] | | | | | | [place] [address] | | | | | | [phone] | | | | | | | | +--------+---------+ + + + documented as of this encounter Visit Diagnoses Not on filedocumented in this encounter"
--- OUTSIDE RECORDS SUMMARY | ~2019-11-17 | XMS | Encounter Summary ---
Demographics + + + | Address | [address] | | | [place] [address] | + + + | Home Phone [...] Providers + +------+ + | Care Parts Advisor Name | Role | Phone | [...] | | | | | | | [place], | | | | | | | [place] | | | | | | | [address] | | | | | | | Phone: | | | | | | | [phone] | | | | | | | Fax: | | | | | | | [phone] | +--------+--------+ + + + + Encounter Details +--------+---------+ + + + | Date | Type | Department | Care Team | Description | +--------+---------+ + + + | 11/10/ | Office | Digestive Health | Chris Padgett, | Status Post | | 2007 | Visit | [place] [address] | [address] | Bariatric Surgery; | | | | Ave Mailcode: CH4S | [address] | Abdominal Pain, | | | | [facility] | [place], [place] | Other Specified Site | | | | and Healing, | [address] | | | | | Building | [phone] | | | | | Floor [place], [place] | | | | | | [address] | | | | | | [phone] | | | +--------+---------+ + + + [...]
--- OUTSIDE RECORDS SUMMARY | ~2019-11-17 | XMS | Encounter Summary ---
Demographics + + + | Address | [address] | | | [place] [address] | + + + | Home Phone [...] Providers + +------+ + | Care Last Waxer Name | Role | Phone | [...] | | Order | Loop Physician's | [place], [place] | | | | | [place], [facility] floor | [address] | | | | | [place], [place] | [phone] | | | | | [address] | | | | | | [phone] | | | +--------+ + + + [...]
--- OUTSIDE RECORDS SUMMARY | ~2019-11-17 | XMS | Encounter Summary ---
Demographics + + + | Address | [address] | | | [place] [address] | + + + | Home Phone [...] + +------+ + | Care Pet Care Assistant Name | Role | Phone | [...] | Pain | Diagnoses | Miracle, | [place], | | | | Management | LBP (low | NIHARIKA Jean | Lukasz Rhodes, PhD | | | | | back pain) | [address] | [address] | | | | | DJD | [address] | Ave | | | | | (degenerativ | [place], [place] | [place], [place] | | | | | e joint | [address] | [address] | | | | | disease) of | | Phone: | | | | | knee Knee | | [phone] | | | | | pain Major | | Fax: | | | | | depressive | | [phone] | | | | | disorder, | [...] / | Office | [facility] | Lukasz Charles, | Major Depressive | | 2007 | Visit | [address] | PhD [address] | Disorder, Recurrent | | | | Mailcode: [facility] | [place], [place] | Episode, Moderate | | | | [place] for [facility] | [address] | ([facility]); LBP (Low Back | | | | and Healing, | [phone] | Pain); Fibromyalgia | | | | | | syndrome 729.1; | | | | Floor [place], [place] | | Adjustment Disorder | | | | [address] | | with Anxiety; | | | | [phone] | | Bilateral Knee Pain; | | [...] skills during intense pain episode s. Diagnosis: [place] I: 1. (296.32) Major depressive disorder, recurrent, moderate. 2. (309.24) Adjustment disorder with anxiety. 3. 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 [place] II: Deferred [place] III: abdominal pain, migraine headache, low back pain. [place] IV: low finances [place] V: GAF 55-60 Plan: return with next medical follow-up appointment. Check mood, knee surgery, relaxatio n, activity, distraction. Continue cognitive/behavioral therapy. Total time spent with patient was approximately 45 minutes. [facility]Z CHARLES [facility] [address] [facility], [address] [place] [address] documented in this encount er Plan of Treatment + + +--------+ + + | Name | Type | Priori | Associated Diagnoses | Order Schedule | | | | ty | | | + + +--------+ + + | [place] [facility], | Procedures | Routin | Major Depressive | Ordered: 08/13/2007 | | OFFICE (69-28) | | e | Disorder, Recurrent | | | | | | Episode, Moderate | | | | | | ([facility]) LBP (Low Back | | | | [...]
--- OUTSIDE RECORDS SUMMARY | ~2019-11-17 | XMS | Encounter Summary ---
Demographics + + + | Address | [address] | | | [place] [address] | + + + | Home Phone [...] + | 10/11/ | Refill | [facility] | Alanis, | Medication Refill | | 2019 | | MEDICINE [address] | MD Petrona | | | | | [facility] | [address] [place] [address] | | | | | [place] [address] | [place] [address] | | | | | [phone] | [phone] | | | | | | | [...] | | | | | [place] [address] | | | | | | [phone] | | | | | | | | +--------+---------+ + + + | 12/20/ | Office | Otolaryngology | Ulysses Genao MD | | | 2019 | Visit | | [address] | | | | | | [address] [place], | | | | | | [place] [address] | | | | | | [phone] | | | | | | | | +--------+---------+ + + + | 02/15/ | Office | Internal Medicine | Alanis, | | | 2019 | Visit | | MD Petrona | | | | | | [address] [place] [address] [address] | | | | | | [place] [address] | | | | | | [phone] | | | | | | | | +--------+---------+ + + + documented as of this encounter Visit Diagnoses Not on filedocumented in this encounter"
--- OUTSIDE RECORDS SUMMARY | ~2019-11-17 | XMS | Encounter Summary ---
Demographics + + + | Address | [address] | | | [place] [address] | + + + | Home Phone [...] Team Providers + +------+ + | Care Farrowing Worker Name | Role | Phone | [...] | | | [facility] | [place], [place] | | | | | [address] | [address] | | | | | [address] | [phone] | | | | | Physician's [address] | | | | | | Physician's | | | | | | [place], | | | | | | [place] [address] | | | | | | [phone] | | | +--------+---------+ + + + [...]
--- OUTSIDE RECORDS SUMMARY | ~2019-11-17 | XMS | Encounter Summary ---
Demographics + + + | Address | [address] | | | [place] [address] | + + + | Home Phone [...] Providers + +------+ + | Care Body Sander Name | Role | Phone | [...] | | | | [address] Physician's | [place], [place] | | | | | [address] | [address] | | | | | [place], [place] | [phone] | | | | | [address] | | | | | | [phone] | | | +--------+ + + + [...] DEPARTMENT OF | [address] | [place] [address] | | | PATHOLOGY | [address] | | | + + + + + | [facility] DEPARTMENT OF | [address] | [place] [address] | | | PATHOLOGY | [address] [...] [facility] [place] | [address] | [place] [address] | | | PATHOLOGY | [address] | | | + + + + + | [facility] | [address] | [place] [address] | | | PATHOLOGY | [address] | | | + + + + + documented in this encounter Visit Diagnoses Not on filedocumented in this encounter"
--- OUTSIDE RECORDS SUMMARY | ~2019-11-17 | XMS | Encounter Summary ---
Demographics + + + | Address | [address] | | | [place] [address] | + + + | Home Phone [...] Team Providers + +------+ + | Care Centerless Grinder Operator Name | Role | Phone [...] | Other | | 2008 | | [place] [address] | [address] | | | | | [place] Mailcode: CH4S | [address] | | | | | [facility] | [place], [place] | | | | | and Healing, | [address] | | | | | [place] [address], [facility] | [phone] | | | | | Floor [place], [place] | | | | | | [address] | | | | | | [phone] | | | +--------+ + + + [...]
--- OUTSIDE RECORDS SUMMARY | ~2019-11-17 | XMS | Encounter Summary ---
Demographics + + + | Address | [address] | | | [place] [address] | + + + | Home Phone [...] Team Providers + +------+ + | Care Bullard Machine Operator Name | Role | Phone [...] | | | [facility] | [place], [place] | | | | | [address] | [address] | | | | | [address] | [phone] | | | | | [facility] | | | | | | [facility] | | | | | | [facility] [place], | | | | | | [place] [address] | | | | | | [phone] | | | +--------+--------+ + + + [...]
--- OUTSIDE RECORDS SUMMARY | ~2019-11-17 | XMS | Encounter Summary ---
Demographics + + + | Address | [address] | | | [place] [address] | + + + | Home Phone [...] Providers + +------+ + | Care Personnel And Payroll Technician Name | Role | Phone | [...] + + | 05/29/ | Office | [facility] Comprehensive | Delfina Molina, | Chronic Abdominal | | 2005 | Visit | Pain Center at | ANP | Pain; Cervical Pain; | | | | [facility] | | Joint pain 719.40; | | | | [address] | | Depression | | | | Mailcode: CH15P | | | | | | [facility] | | | | | | and Healing, | | | | | | Building | | | | | | Floor [place], [place] | | | | | | [address] | | | | | | [phone] | | | +--------+---------+ + + + [...] a Physical Therapy evaluation here at the [facility] in [place]. 3. Patient will be referred for a Psychology evaluation here at the [facility]. 4. Following the completion of these [...] Belinda Meehan is a 46 y.o. female [id number] Chief Complaint: Patient presents with: Pain - [...] as PAIN MEDICINES: Opioids: Hydrocodone (Vicodin, Lortab, [place]): Why stopped?: don't remember. Came off due [...] jello and yoghurt last 6 months, abdominal isna n and loose stool since bypass 4-5 [...] HX SALPINGO-OOPHORECTOMY COLONOSCOPY Comment: 03/2006 HX TONSILLECTOMY NH D&C AFTER DELIVERY NH INJECT TRIGGER POINT, 1 OR 2 Family [...] Physical Therapy evaluation here at the [facility]. 3. Patient will be referred for a Psychology evaluation here at the [facility] er. 4. Following the completion of [...] you for referring Bel[facility] [place] for a chronic pain management evaluation. I trust that you will find the recomm endations satisfactory and that you will be able to implement these in the care of your mehreen ent. Should you have any concerns or questions, please contact me, I would be happy to add ress those with you. DELFINA MOLINA [facility] [place] Mail code CH 4P [place] [facility] [address] [place] [address] metimothy Tasha - 05/29/2006 1:51 PM [...] drinking? no -Do you ever drink an eye-high pressure boiler operator in the morning to relieve the [...] stressful life experiences recently? 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 What do you expect from our pain program? Help in coping with the pain 24. What types of treatment do you expect from your visits to the [facility] ? Stress Management documented in [...]
--- OUTSIDE RECORDS SUMMARY | ~2019-11-17 | XMS | Encounter Summary ---
Demographics + + + | Address | [address] | | | [place] [address] | + + + | Home Phone [...] Providers + +------+ + | Care Superintendent Terminal Name | Role | Phone | + [...] + + | 01/21/ | Telephone | [facility] | Alanis, | Pain | | 2019 | | MEDICINE [address] [place] [address] | MD Petrona | | | | | [address] | [address] [place] [address] | | | | | [place] [address] | [place] [address] | | | | | [phone] | [phone] | | | | | | | [...] | | | | | [place] [address] | | | | | | [phone] | | | | | | | | +--------+---------+ + + + | 12/20/ | Office | Otolaryngology | Ulysses Genao MD | | | 2019 | Visit | | [address] | | | | | | [address] [place], | | | | | | [place] [address] | | | | | | [phone] | | | | | | | | +--------+---------+ + + + | 02/15/ | Office | Internal Medicine | Alanis, | | | 2019 | Visit | | MD Petrona | | | | | | [address] | | | | | | [place] [address] | | | | | | [phone] | | | | | | | | +--------+---------+ + + + documented as of this encounter Visit Diagnoses Not on filedocumented in this encounter"
--- OUTSIDE RECORDS SUMMARY | ~2019-11-17 | XMS | Encounter Summary ---
Demographics + + + | Address | [address] | | | [place] [address] | + + + | Home Phone [...] Team Providers + +------+ + | Care Salesforce Developer Name | Role | Phone | [...] | | Center at [facility] [address] | [address]OCK RECE[address] | | | | | Sara [address] | , [address] | | | | | Mailcode: Center | [place], [place] | | | | | [facility] and | [address] | | | | | Healing, Building [address] | [phone] | | | | | [place], [place] | | | | | | [address] | | | | | | [phone] | | | +--------+ + + + [...]
--- OUTSIDE RECORDS SUMMARY | ~2019-11-17 | XMS | Encounter Summary ---
Demographics + + + | Address | [address] | | | [place] [address] | + + + | Home Phone [...] Providers + +------+ + | Care Spa Concierge Name | Role | Phone | + [...] + + | 09/14/ | Telephone | [facility] | Alanis, | Referral | | 2018 | | MEDICINE [address] [place] [address] | MD Petrona | | | | | [facility] | [address] [place] [address] | | | | | [place] [address] | [place] [address] | | | | | [phone] | [phone] | | | | | | | [...] | | | | | [place] [address] | | | | | | [phone] | | | | | | | | +--------+---------+ + + + | 12/20/ | Office | Otolaryngology | Ulysses Genao MD | | | 2019 | Visit | | [address] | | | | | | [address] [place], | | | | | | [place] [address] | | | | | | [phone] | | | | | | | | +--------+---------+ + + + | 02/15/ | Office | Internal Medicine | Alanis, | | | 2019 | Visit | | MD Petrona | | | | | | [address] | | | | | | [place] [address] | | | | | | [phone] | | | | | | | | +--------+---------+ + + + documented as of this encounter Visit Diagnoses Not on filedocumented in this encounter"
--- OUTSIDE RECORDS SUMMARY | ~2019-11-17 | XMS | Encounter Summary ---
Demographics + + + | Address | [address] | | | [place] [address] | + + + | Home Phone [...] Providers + +------+ + | Care Digital Forensic Analyst Name | Role | Phone | [...] [address] | | | | | [facility] | [place], [place] | | | | | [address] | [address] | | | | | [address] | [phone] | | | | | [facility] | | | | | | Physician's | | | | | | Pavilion [place], | | | | | | [place] [address] | | | | | | [phone] | | | +--------+--------+ + + + [...]
--- OUTSIDE RECORDS SUMMARY | ~2019-11-17 | XMS | Encounter Summary ---
Demographics + + + | Address | [address] | | | [place] [address] [...] Providers + +------+ + | Care Adjunct Professor Of U.[place]. History Name | Role | Phone | [...] | Epigastric | T, ANP | [address] | | | | | pain Status | [place], [place] | [address] | | | | | post | [address] | [facility] | | | | | bariatric | | [place], 4th | | | | | surgery | | floor | | | | | Procedures | | [place], [place] | | | | | CONSULT TO | | [address] | | | | | GI PROCEDURE | | Phone: | | | | | UNIT: EGD | | [phone] | | | | | | | Fax: | | | | | | | [phone] | +--------+--------+ + + + + Reason [...] | | | | | | Rd [place], | | | | | | | [place] | | | | | | | [address] | | | | | | | Phone: | | | | | | | [phone] | | | | | | | Fax: | | | | | | | [phone] | +--------+--------+ + + + + Encounter Details +--------+---------+ + + + | Date | Type | Department | Care Team | Description | +--------+---------+ + + + | 08/28/ | Office | Digestive Health | Chris Padgett, | Epigastric Pain | | 2008 | Visit | [place] [address] | [address] | (Primary Dx); Status | | | | Ave Mailcode: CH4S | [facility] [address] | Post Bariatric | | | | Center for [facility] | [place], [place] | Surgery | | | | and Healing, | [address] | | | | | | [phone] | | | | | [place], [place] | | | | | | [address] | | | | | | [phone] | | | +--------+---------+ + + + [...] + + +--------+ + + | [facility] | Procedures | Routin | [...] Performed At | + + + | [id number] Estimated GFR > 60 mL/min/1.73 sq m if non- | [facility] | | Algerian 406889 Estimated GFR > 60 mL/min/1.73 sq m [...] [facility] [place] | [address] | [place] [address] | | | PATHOLOGY | [address] | | | + + + + + | [facility] [place] | [address] | [place] [address] | | | PATHOLOGY | [address] | | | + + + + + documented in this encounter Visit Diagnoses + + | Diagnosis | + + | Epigastric pain - Primary Abdominal pain, epigastric | + + | Status post bariatric surgery Bariatric surgery status | + + documented in this encounter"
--- OUTSIDE RECORDS SUMMARY | ~2019-11-17 | XMS | Encounter Summary ---
Demographics + + + | Address | [address] | | | [place] [address] | + + + | Home Phone [...] | Neurology | Diagnoses | [place], | [place], | | | | | Migraine | NIHARIKA Jean | Merari Lopez MD | | | | | headache | [address] | | | | | | Procedures | [address] | | | | | | CONSULT TO | [place], [place] | | | | | | NEUROLOGY | [address] | | +--------+--------+ + + + + [...] | [facility] | | Migraine Headache; | | | | [address] | | Opioid Dependence, | | | | Mailcode: CH15P | | Continuous (HCC); | | | | [facility] | | Neck Pain; Right | | | | and Healing, | | shoulder rotator | | | | Building | | cuff strain; | | | | Floor 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 Schedule Neurology evaluation [facility] order placed for Dr. Merari Mittal MD 4. Follow up 11/11/06 documented in this encounter Progress Notes Delfina Molina - 10/23/2006 1:20 PM PDTFormatting of this note might be different from th e original. 10/23/2006 Belinda Meehan is a 46 [address] [facility] Comprehensive [...] car. She has not been seeing the [facility] PT , await ing the surgical plan for her left knee. MRI done, ordered by Dr. Ibarra who referred to Dr. Angel Morales for surgical opinion, scheduled for 10/28/06. She continues to see Dr. Alin adames at [facility] and reports benefit and would like to nelly salude she has two more scheduled visits. She reports Dr. Woodson referred her to neurologist locally for her migraine assessment how ever not being scheduled due to insurance [place] barriers. She is interested in being referred to a Dr. Merari Mittal [facility] neurlogy whom she has heard [...] Collection Time Resulting Agency 10/05/2006 9:[address] [facility] DEPARTMENT OF RADIOLOGY [...] the free margin and undersurface of the platform beater horn of the medial meniscus suspicious for [...] the left knee 3. Schedule Neurology evaluation [facility] order placed for Dr. Merrai Mittal MD 4. Follow up 11/11/06 to reivew pain management 5. Cntinue with PT and psychology as scheduled DELFINA MOLINA [facility] Mail code CH 4P [address] [address] iAgustin maciasndy - 10/23 12:47 [...]
--- OUTSIDE RECORDS SUMMARY | ~2019-11-17 | XMS | Encounter Summary ---
Demographics + + + | Address | [address] | | | [place] [address] | + + + | Home Phone [...] + + | 02/09/ | Telephone | [facility] | Alanis, | Other | | 2019 | | MEDICINE [address] [place] [address] | MD Petrona | | | | | [facility] | [address] [place] [address] | | | | | [place] [address] | [place] [address] | | | | | [phone] | [phone] | | | | | | | [...] | | | | | [place] [address] | | | | | | [phone] | | | | | | | | +--------+---------+ + + + | 12/20/ | Office | Otolaryngology | Ulysses Genao MD | | | 2019 | Visit | | [address] | | | | | | [address] [place], | | | | | | [place] [address] | | | | | | [phone] | | | | | | | | +--------+---------+ + + + | 02/15/ | Office | Internal Medicine | Alanis, | | | 2019 | Visit | | MD Petrona | | | | | | [address] | | | | | | [place] [address] | | | | | | [phone] | | | | | | | | +--------+---------+ + + + documented as of this encounter Visit Diagnoses Not on filedocumented in this encounter"
--- OUTSIDE RECORDS SUMMARY | ~2019-11-17 | XMS | Encounter Summary ---
Demographics + + + | Address | [address] | | | [place] [address] | + + + | Home Phone [...] Providers + +------+ + | Care Search And Rescue Officer Name | Role | Phone | [...] as of this encounter Progress Notes Interface, Immigration Case Manager In - 10/03/2006 2:33 AM PDT [id number] GEOVANNI SKELTON J [id number] Clinic Date: 09/14/2006 Clinic: Rheumatology Belinda Meehan [...] every 3 days changed; Trileptal 225 mg; [place] 10/325; and Actonel. Objective: Weight is 214, [...] to this. Caitlin Rivera M.S., F.N.P. / [id number] / [id number] / [id number] / [id number] cc: Pedrito Gutierrez M.D. [address] [facility] [address], [place] [address] [facility] Electronically signed by Caitlin Rivera 10-02-2006 09:24:29 AM documented in this encounter Plan of Treatment Not on filedocumented as of this encounter Visit Diagnoses Not on filedocumented in this encounter"
--- OUTSIDE RECORDS SUMMARY | ~2019-11-17 | XMS | Encounter Summary ---
Demographics + + + | Address | [address] | | | [place] [address] | + + + | Home Phone [...] Providers + +------+ + | Care Vice Squad Police Officer Name | Role | Phone | [...] 10/28/ | Office | [facility] at [facility] | Lukasz Charles, | Major Depressive | | 2006 | Visit | [address] | PhD [address] | Disorder, Recurrent | | | | Mailcode: CH15P | [place], [place] | Episode, Moderate | | | | [facility] | [address] | [facility]); Neck Pain; | | | | and Healing, | [phone] | Herniated Lumbar | | | | Building | | Intervertebral Disc | | | | Floor [place], [place] | | L4-5; 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 She has been doing cross stitch [...] patient was approximately 45 minutes. LUKASZ CHARLES [facility] [address] [facility], 4th [place] [address] documented in this encount er Plan of [...]
--- OUTSIDE RECORDS SUMMARY | ~2019-11-17 | XMS | Encounter Summary ---
Demographics + + + | Address | [address] | | | [place] [address] | + + + | Home Phone [...] Team Providers + +------+ + | Care Stave Cutting Supervisor Name | Role | Phone [...] + + | 03/19/ | Telephone | [facility] Division of | Carlos Arreola, | Erroneous Encounter | | 2005 | | Gastroenterology/Hep | [address] | - Disregard (ERROR) | | | | atology [address] | [address] | | | | | [address] | [place] [address] | | | | | Mailcode: PV310 | [phone] | | | | | [facility] | | | | | | [address] | | | | | | [place], [place] | | | | | | [address] | | | | | | [phone] | | | +--------+ + + + [...]
--- OUTSIDE RECORDS SUMMARY | ~2019-11-17 | XMS | Encounter Summary ---
Demographics + + + | Address | [address] | | | [place] [address] | + + + | Home Phone [...] Providers + +------+ + | Care Field Service Technician Name | Role | [...] + + | 09/14/ | Telephone | [facility] | Alanis, | Chest Pain | | 2019 | | MEDICINE [address] [place] [address] | MD Petrona | | | | | [facility] | [address] [place] [address] | | | | | [place] [address] | [place] [address] | | | | | [phone] | [phone] | | | | | | | [...] | | | | | [place] [address] | | | | | | [phone] | | | | | | | | +--------+---------+ + + + | 12/20/ | Office | Otolaryngology | Ulysses Genao MD | | | 2020 | Visit | | [address] | | | | | | [address] [place], | | | | | | [place] [address] | | | | | | [phone] | | | | | | | | +--------+---------+ + + + | 02/15/ | Office | Internal Medicine | Alanis, | | | 2019 | Visit | | MD Petrona | | | | | | [address] | | | | | | [place] [address] | | | | | | [phone] | | | | | | | | +--------+---------+ + + + documented as of this encounter Visit Diagnoses Not on filedocumented in this encounter"
--- OUTSIDE RECORDS SUMMARY | ~2019-11-17 | XMS | Encounter Summary ---
[...] + + | 11/16/ | Telephone | [facility] | Alanis, | Lab Results | | 2019 | | MEDICINE [address] [place] [address] | MD Petrona | | | | | [facility] | [address] [place] [address] | | | | | [place] [address] | [place] [address] | | | | | [phone] | [phone] | | | | | | | [...] | | | | | [place] [address] | | | | | | [phone] | | | | | | | | +--------+---------+ + + + | 12/20/ | Office | Otolaryngology | Ulysses Genao MD | | | 2020 | Visit | | [address] | | | | | | [address] [place], | | | | | | [place] [address] | | | | | | [phone] | | | | | | | | +--------+---------+ + + + | 02/15/ | Office | Internal Medicine | Alanis, | | | 2019 | Visit | | MD Petrona | | | | | | [address] | | | | | | [place] [address] | | | | | | [phone] | | | | | | | | +--------+---------+ + + + documented as of this encounter Visit Diagnoses Not on filedocumented in this encounter"
--- OUTSIDE RECORDS SUMMARY | ~2019-11-17 | XMS | Encounter Summary ---
Demographics + + + | Address | [address] | | | [place] [address] | + + + | Home Phone [...] Team Providers + +------+ + | Care Investigation Division Captain Name | Role | Phone | + +------+ + | Maria Esther Cintron MD | PCP | | + +------+ + Encounter Details +--------+ + + + + | Date | Type | Department | Care Team | Description | +--------+ + + + + | 09/21/ | Telephone | Dig[facility]ive Health | Chris Padgett, | | | 2008 | | [place] [address] | [address] [facility] | | | | | Bethanie Mailcode: CH4S | [address] | | | | | [facility] | [place], [place] | | | | | and Healing, | [address] | | | | | Building , 6th | [phone] | | | | | Floor [place], [place] | | | | | | [address] | | | | | | [phone] | | | +--------+ + + + [...]
--- OUTSIDE RECORDS SUMMARY | ~2019-11-17 | XMS | Encounter Summary ---
Demographics + + + | Address | [address] | | | [place] [address] | + + + | Home Phone [...] Team Providers + +------+ + | Care Finisher Machine Name | Role | Phone | + +------+ + | Crystal Gutierrez MD | PCP | | + +------+ + Encounter Details +--------+ + + + + | Date | Type | Department | Care Team | Description | +--------+ + + + + | 09/14/ | Procedure - | [facility] Division of | Endoscopy, Gi | EGD | | 2008 | | Gastroenterology/Hep | | (esophagogastroduode | | | Transcribed | atology [address] | | noscopy) | | | | [address] | | | | | | Mailcode: PV310 | | | | | | [place] | | | | | | [address] | | | | | | [place], [place] | | | | | | [address] | | | | | | [phone] | | | +--------+ + + + [...] + + + | PROCEDURES:PANENDOSCOPY (EGD) CPT: [id number]. PERSONNEL:THE | | | ATTENDING PHYSICIAN WAS [...] AM PDT | | PROCEDURES:PANENDOSCOPY (EGD) CPT: [id number]. | | PERSONNEL:THE ATTENDING PHYSICIAN WAS PRESENT [...]
--- OUTSIDE RECORDS SUMMARY | ~2019-11-17 | XMS | Encounter Summary ---
Demographics + + + | Address | [address] | | | [place] [address] | + + + | Home Phone [...] + +------+ + | Care X Ray Tech Name | Role | Phone | + +------+ + | Petrona Thapa | PCP | | | MD | | | + +------+ + Encounter Details +--------+ + + + + | Date | Type | Department | Care Team | Description | +--------+ + + + + | 05/04/ | Hospital | [facility] | Alanis, | Left hip pain | | 2017 | Encounter | [facility] | MD Petrona | | | | | [address] [place] | [address] [facility] | | | | | [place], [place] | [place] [address] | | | | | [address] | [phone] | | | | | [phone] | | | +--------+ + + + [...] ordered, please prin t [facility] fax [facility] signed by Petrona Thapa MD at [...] | | | | | [place] [address] | | | | | | [phone] | | | | | | | | +--------+---------+ + + + | 12/20/ | Office | Otolaryngology | Ulysses Genao MD | | | 2019 | Visit | | [address] [facility] | | | | | | [address] [place], | | | | | | [place] [address] | | | | | | [phone] | | | | | | | | +--------+---------+ + + + | 02/15/ | Office | Internal Medicine | Alanis, | | | 2019 | Visit | | MD Petrona | | | | | | [address] | | | | | | [place] [address] | | | | | | [phone] | | | | | | | [...]
--- OUTSIDE RECORDS SUMMARY | ~2019-11-17 | XMS | Encounter Summary ---
Demographics + + + | Address | [address] | | | [place] [address] | + + + | Home Phone [...] Providers + +------+ + | Care Editor Managing Director Name | Role | Phone | + +------+ + | Maria Esther Cintorn MD | PCP | | + +------+ + Encounter Details +--------+ + + + + | Date | Type | Department | Care Team | Description | +--------+ + + + + | 10/27/ | Telephone | Dig[facility]ive Health | Chris Padgett, | | | 2008 | | [place] [address] | [address] [facility] | | | | | Bethanie Mailcode: CH4S | [address] | | | | | [facility] | [place], [place] | | | | | and Healing, | [address] | | | | | Building , 6th | [phone] | | | | | Floor [place], [place] | | | | | | [address] | | | | | | [phone] | | | +--------+ + + + [...]
--- OUTSIDE RECORDS SUMMARY | ~2019-11-17 | XMS | Encounter Summary ---
Demographics + + + | Address | [address] | | | [place] [address] | + + + | Home Phone [...] Providers + +------+ + | Care Hr Clerk Name | Role | Phone | [...] + | 02/15/ | Refill | [facility] | Alanis, | Medication Refill | | 2018 | | MEDICINE [address] [place] [address] | MD Petrona | | | | | [facility] | [address] [place] [address] | | | | | [place] [address] | [place] [address] | | | | | [phone] | [phone] | | | | | | | [...] [place] | | | | | | [place] [address] | | | | | | [phone] | | | | | | | | +--------+---------+ + + + | 12/20/ | Office | Otolaryngology | Ulysses Genao MD | | | 2019 | Visit | | [address] | | | | | | [address] [place], | | | | | | [place] [address] | | | | | | [phone] | | | | | | | | +--------+---------+ + + + | 02/15/ | Office | Internal Medicine | Alanis, | | | 2019 | Visit | | MD Petrona | | | | | | [address] [place] [address] [address] | | | | | | [place] [address] | | | | | | [phone] | | | | | | | | +--------+---------+ + + + documented as of this encounter Visit Diagnoses Not on filedocumented in this encounter"
--- OUTSIDE RECORDS SUMMARY | ~2019-11-17 | XMS | Encounter Summary ---
Demographics + + + | Address | [address] | | | [place] [address] [...] Team Providers + +------+ + | Care Wrecker Operator Name | Role | Phone | [...] + + | 05/11/ | Telephone | [facility] | Alanis, | Results | | 2016 | | MEDICINE [address] | MD Petrona | | | | | [facility] | [address] [facility] | | | | | [place] [address] | [place] [address] | | | | | [phone] | [phone] | | | | | | | [...] | | | | | [place] [address] | | | | | | [phone] | | | | | | | | +--------+---------+ + + + | 12/20/ | Office | Otolaryngology | Ulysses Genao MD | | | 2019 | Visit | | [address] | | | | | | [address] [place], | | | | | | [place] [address] | | | | | | [phone] | | | | | | | | +--------+---------+ + + + | 02/15/ | Office | Internal Medicine | Alanis, | | | 2019 | Visit | | MD Petrona | | | | | | [address] [place] | | | | | | [place] [address] | | | | | | [phone] | | | | | | | | +--------+---------+ + + + documented as of this encounter Visit Diagnoses + + | Diagnosis | + + | Acute bilateral low back pain with bilateral sciatica - Primary | + + documented in this encounter"
--- OUTSIDE RECORDS SUMMARY | ~2019-11-17 | XMS | Encounter Summary ---
Demographics + + + | Address | [address] | | | [place] [address] | + + + | Home Phone [...] Providers + +------+ + | Care Customer Manager Name | Role | Phone | [...] | | 2005 | | Center at [facility] | | endoscopy procedure | | | | S Mychal K[address] | | | | | | Mailcode: [place] | | | | | | [facility] and | | | | | | [place] [address] | | | | | | [place], [place] | | | | | | [address] | | | | | | [phone] | | | +--------+ + + + [...] en doscopy in the Gastroenterology Clinic at [facility], see transcri bed report. Earnest Ward documented in this encount er Plan of Treatment + + +--------+ + + | Name | Type | Priori | Associated Diagnoses | Order Schedule | | | | ty | | | + + +--------+ + + | IN GI TRACT IMAGING, | Procedures | Routin [...]
--- OUTSIDE RECORDS SUMMARY | ~2019-11-17 | XMS | Encounter Summary ---
Demographics + + + | Address | [address] | | | [place] [address] [...] + | 05/18/ | Telephone | [facility] | Alanis, | Referral | | 2018 | | MEDICINE [address] [place] [address] | MD Petrona | | | | | [facility] | [address] [place] [address] | | | | | [place] [address] | [place] [address] | | | | | [phone] | [phone] | | | | | | | [...] | | | | | [place] [address] | | | | | | [phone] | | | | | | | | +--------+---------+ + + + | 12/20/ | Office | Otolaryngology | Ulysses Genao MD | | | 2019 | Visit | | [address] [place] | | | | | | [address] [place], | | | | | | [place] [address] | | | | | | [phone] | | | | | | | | +--------+---------+ + + + | 02/15/ | Office | Internal Medicine | Alanis, | | | 2019 | Visit | | MD Petrona | | | | | | [address] [place] | | | | | | [place] [address] | | | | | | [phone] | | | | | | | | +--------+---------+ + + + documented as of this encounter Visit Diagnoses Not on filedocumented in this encounter"
--- OUTSIDE RECORDS SUMMARY | ~2019-11-17 | XMS | Encounter Summary ---
Demographics + + + | Address | [address] | | | [place] [address] | + + + | Home Phone [...] Providers + +------+ + | Care Theatre Manager Name | Role | Phone | [...] + | 11/20/ | Refill | [facility] | Alanis, | Medication Refill | | 2017 | | MEDICINE [address] [place] [address] | MD Petrona | | | | | [facility] | [address] [place] [address] | | | | | [place] [address] | [place] [address] | | | | | [phone] | [phone] | | | | | | | [...] | | | | | [place] [address] | | | | | | [phone] | | | | | | | | +--------+---------+ + + + | 12/20/ | Office | Otolaryngology | Ulysses Genao MD | | | 2019 | Visit | | [address] [place] | | | | | | [address] [place], | | | | | | [place] [address] | | | | | | [phone] | | | | | | | | +--------+---------+ + + + | 02/15/ | Office | Internal Medicine | Alanis, | | | 2019 | Visit | | MD Petrona | | | | | | [address] [place] [address] [address] | | | | | | [place] [address] | | | | | | [phone] | | | | | | | | +--------+---------+ + + + documented as of this encounter Visit Diagnoses Not on filedocumented in this encounter"
--- OUTSIDE RECORDS SUMMARY | ~2019-11-17 | XMS | Encounter Summary ---
Demographics + + + | Address | [address] | | | [place] [address] | + + + | Home Phone [...] + +------+ + | Care Photo Checker Name | Role | Phone | + +------+ + | Pedrito Gutierrez MD | PCP | | + +------+ + Encounter Details +--------+ + + + + | Date | Type | Department | Care Team | Description | +--------+ + + + + | 12/26/ | Telephone | [facility] | Lukasz Ogden, | | | 2007 | | Pain Center at | PhD [address] | | | | | [facility] | [place], [place] | | | | | [address] | [address] | | | | | Mailcode: CH15P | [phone] | | | | | [facility] | | | | | | and [place], | | | | | | Building | | | | | | [place], [place] | | | | | | [address] | | | | | | [phone] | | | +--------+ + + + [...]
--- OUTSIDE RECORDS SUMMARY | ~2019-11-17 | XMS | Encounter Summary ---
Demographics + + + | Address | [address] | | | [place] [address] | + + + | Home Phone [...] Team Providers + +------+ + | Care Us Customs And Border Officer Name | Role | Phone | [...] | | | | [place], | [address] Phone: | | | | | | [place] | [phone] | | | | | | [address] | Fax: | | | | | | Phone: | [phone] | | | | | | [phone] | | | | | | | Fax: | | | | | | | [phone] | | + + + + + [...] | | | | [address] | [place] [address] | | | | | | [place], | Phone: | | | | | | [place] | [phone] | | | | | | [address] | Fax: | | | | | | Phone: | [phone] | | | | | | [phone] | | | | | | | Fax: | | | | | | | [phone] | | + + + + + + + Reason for Visit + + + | Reason | Comments | + + + | Referral (Follow up) | | + + + Encounter Details +--------+ + + + + | Date | Type | Department | Care Team | Description | +--------+ + + + + | 10/16/ | Telephone | [facility] | Alanis, | Referral (Follow up) | | 2019 | | MEDICINE [address] [place] [address] | MD Petrona | | | | | [facility] | [address] [place] [address] | | | | | [place] [address] | [place] [address] | | | | | [phone] | [phone] | | | | | | | [...] | | | | | [place] [address] | | | | | | [phone] | | | | | | | | +--------+---------+ + + + | 12/20/ | Office | Otolaryngology | Ulysses Genao MD | | | 2019 | Visit | | [address] [place] | | | | | | [address] [place], | | | | | | [place] [address] | | | | | | [phone] | | | | | | | | +--------+---------+ + + + | 02/15/ | Office | Internal Medicine | Alanis, | | | 2019 | Visit | | MD Petrona | | | | | | [address] [place] | | | | | | [place] [address] | | | | | | [phone] | | | | | | | [...]
--- OUTSIDE RECORDS SUMMARY | ~2019-11-17 | XMS | Encounter Summary ---
Demographics + + + | Address | [address] | | | [place] [address] | + + + | Home Phone [...] Providers + +------+ + | Care Livestock Dealer Name | Role | Phone | [...] | | | | | Procedures | [facility] [place] | [address] | | | | | CONSULT TO | [address] | for Health | | | | | BONE | Phone: | and Healing, | | | | | DENSITOMETRY | [phone] | [address] | | | | | | Fax: | [place], [place] | | | | | | [phone] | [address] | | | | | | | Phone: | | | | | | | [phone] | | | | | | | Fax: | | | | | | | [phone] | +--------+ + + + + + [...] | | | [facility] | [place], [place] | Bypass for Ob[facility] | | | | and Healing, | [address] | | | | | [facility] | [phone] | | | | | Floor [place], [place] | | | | | | [address] | | | | | | [phone] | | | +--------+---------+ + + + [...] + +---------+ + + | [facility] DEPARTMENT OF | | | [...]
--- OUTSIDE RECORDS SUMMARY | ~2019-11-17 | XMS | Encounter Summary ---
Demographics + + + | Address | [address] | | | [place] [address] | + + + | Home Phone [...] Providers + +------+ + | Care Urology Teacher Name | Role | Phone | [...] as of this encounter Discharge Summaries Interface, Senior Systems Administrator In - 01/12/2005 10:09 AM PDT [id number] GEOVANNI Barnes Admission Date: 12/06/2004 Discharge Date: [...] her incision looked clear, dry, and intact. Cameron were in place. She had some moderate [...] Sree Carrillo M.D. Chris Padgett M.D. / [id number] / [id number] / [id number] / [id number] Electronically signed by Chris Padgett 12-31-2004 03:03:21 PM documented i n this encounter Plan of Treatment Not on filedocumented as of this encounter Visit Diagnoses Not on filedocumented in this encounter"
--- OUTSIDE RECORDS SUMMARY | ~2019-11-17 | XMS | Encounter Summary ---
Demographics + + + | Address | [address] | | | [place] [address] | + + + | Home Phone [...] Team Providers + +------+ + | Care Acreage Reporter Name | Role | Phone | [...] as of this encounter Progress Notes Interface, Telephone Betting Clerk In - 10/03/2006 2:33 AM PDT [id number] GEOVANNI SKELTON J [id number] Clinic Date: 09/14/2006 Clinic: Rheumatology Belinda Meehan [...] every 3 days changed; Trileptal 225 mg; Sarah Ann 10/325; and Actonel. Objective: Weight is 214, [...] may have more insight as to this. Cailtin Rivera M.S., F.N.P. / [id number] / [id number] / [id number] / [id number] cc: Pedrito Gutierrez M.D. [address] [facility] [address], [place] [address] [facility] Electronically signed by Caitlin Rivera 10-02-2006 09:24:29 AM documented in this encounter Plan of Treatment Not on filedocumented as of this encounter Visit Diagnoses Not on filedocumented in this encounter"
--- OUTSIDE RECORDS SUMMARY | ~2019-11-17 | XMS | Encounter Summary ---
Demographics + + + | Address | [address] | | | [place] [address] | + + + | Home Phone [...] Providers + +------+ + | Care Digital Solution Architect Name | Role | Phone | [...] | | | | Mailcode: CR131 | [place], [place] | | | | | Outpatient Clinic | [address] | | | | | [facility], | [phone] | | | | | [place] [address] | | | | | | [phone] | | | +--------+ + + + [...] | | | | | 2,SERUM | [facility] | | | | | | Laboratories. | | | | + + + + + + + + | Specimen | + + | | + + + + + + + | Performing | Address | City/State/Zipcode | Phone Number | | Organization | | | | + + + + + | [facility] | [address] | [place] [address] | | | LABORATORY | | | | + + + + + documented in this encounter Visit Diagnoses Not on filedocumented in this encounter"
--- OUTSIDE RECORDS SUMMARY | ~2019-11-17 | XMS | Encounter Summary ---
Demographics + + + | Address | [address] | | | [place] [address] | + + + | Home Phone [...] Team Providers + +------+ + | Care Cooker Chip Name | Role | Phone | + [...] | | [address] | [place] [address] | | | | | | [address] | Phone: | | | | | | [place], | [phone] | | | | | | [place] | Fax: | | | | | | [address] | [phone] | | | | | | Phone: | | | | | | | [phone] | | | | | | | Fax: | | | | | | | [phone] | | +--------+ + + + + + Reason for Visit + + + | Reason | Comments | + + + | Medication Question | | + + + Encounter Details +--------+ + + + + | Date | Type | Department | Care Team | Description | +--------+ + + + + | 08/13/ | Telephone | [facility] | Alanis, | Medication Question | | 2018 | | MEDICINE [address] [place] [address] | MD Petrona | | | | | [facility] | [address] [place] [address] | | | | | [place] [address] | [place] [address] | | | | | [phone] | [phone] | | | | | | | [...] | | | | | [place] [address] | | | | | | [phone] | | | | | | | | +--------+---------+ + + + | 12/20/ | Office | Otolaryngology | Ulysses Genao MD | | | 2019 | Visit | | [address] [place] | | | | | | [address] [place], | | | | | | [place] [address] | | | | | | [phone] | | | | | | | | +--------+---------+ + + + | 02/15/ | Office | Internal Medicine | Alanis, | | | 2019 | Visit | | MD Petrona | | | | | | [address] | | | | | | [place] [address] | | | | | | [phone] | | | | | | | [...]
--- OUTSIDE RECORDS SUMMARY | ~2019-11-17 | XMS | Encounter Summary ---
Demographics + + + | Address | [address] | | | [place] [address] | + + + | Home Phone [...] Providers + +------+ + | Care Inspector Process Name | Role | Phone | [...] | | | | L[facility] Physician's | [place], [place] | | | | | [address] | [address] | | | | | [place], [place] | [phone] | | | | | [address] | | | | | | [phone] | | | +--------+ + + + [...]
--- OUTSIDE RECORDS SUMMARY | ~2019-11-17 | XMS | Encounter Summary ---
Demographics + + + | Address | [address] | | | [place] [address] | + + + | Home Phone [...] + + | 04/17/ | Telephone | [facility] Division of | Carlos Arreola, | | | 2005 | | Gastroenterology/Hep | [address] | | | | | atology [address] | | | | | [address] | [place] [address] | | | | | Mailcode: PV310 | [phone] | | | | | Physician's [address]ila | | | | | | [address] | | | | | | [place], [place] | | | | | | [address] | | | | | | [phone] | | | +--------+ + + + [...]
--- OUTSIDE RECORDS SUMMARY | ~2019-11-17 | XMS | Encounter Summary ---
Demographics + + + | Address | [address] | | | [place] [address] | + + + | Home Phone [...] Team Providers + +------+ + | Care Ruby On Rails Consultant Name | Role | Phone | [...] Lab findings, | | 2007 | | [place] [address] | [address] | teaching, guidance, | | | | Ave Mailcode: CH4S | [address] | and counseling | | | | [facility] | [place], [place] | | | | | and Healing, | [address] | | | | | [facility] | [phone] | | | | | [place], [place] | | | | | | [address] | | | | | | [phone] | | | +--------+ + + + [...]
--- OUTSIDE RECORDS SUMMARY | ~2019-11-17 | XMS | Encounter Summary ---
[...] Providers + +------+ + | Care Geospatial Extractor Analysis Name | Role | Phone | + [...] [place] | | | | | | [address] | | | | | | [phone] | | | +--------+ + + + [...] | | | | | [place] [address] | | | | | | [phone] | | | | | | | | +--------+---------+ + + + | 12/20/ | Office | Otolaryngology | Ulysses Genao MD | | | 2019 | Visit | | [address] [place] | | | | | | [address] [place], | | | | | | [place] [address] | | | | | | [phone] | | | | | | | | +--------+---------+ + + + | 02/15/ | Office | Internal Medicine | Alanis, | | | 2019 | Visit | | MD Petrona | | | | | | [address] [place] | | | | | | [place] [address] | | | | | | [phone] | | | | | | | | +--------+---------+ + + + documented as of this encounter Visit Diagnoses Not on filedocumented in this encounter"
--- OUTSIDE RECORDS SUMMARY | ~2019-11-17 | XMS | Encounter Summary ---
Demographics + + + | Address | [address] | | | [place] [address] | + + + | Home Phone [...] Providers + +------+ + | Care Meter Setter Name | Role | Phone | [...] + | 01/17/ | Refill | [facility] | Alanis, | Medication Refill | | 2018 | | MEDICINE [address] [place] [address] | MD Petrona | | | | | [facility] | [address] [place] [address] | | | | | [place] [address] | [place] [address] | | | | | [phone] | [phone] | | | | | | | [...] | | | | | [place] [address] | | | | | | [phone] | | | | | | | | +--------+---------+ + + + | 12/20/ | Office | Otolaryngology | Ulysses Genao MD | | | 2019 | Visit | | [address] [place] | | | | | | [address] [place], | | | | | | [place] [address] | | | | | | [phone] | | | | | | | | +--------+---------+ + + + | 02/15/ | Office | Internal Medicine | Alanis, | | | 2019 | Visit | | MD Petrona | | | | | | [address] [place] [address] [address] | | | | | | [place] [address] | | | | | | [phone] | | | | | | | | +--------+---------+ + + + documented as of this encounter Visit Diagnoses Not on filedocumented in this encounter"
--- OUTSIDE RECORDS SUMMARY | ~2019-11-17 | XMS | Encounter Summary ---
Demographics + + + | Address | [address] | | | [place] [address] | + + + | Home Phone [...] + + | 04/06/ | Telephone | [facility] | Alanis, | Care Coordination | | 2017 | | MEDICINE [address] [place] [address] | MD Petrona | | | | | [facility] | [address] [place] [address] | | | | | [place] [address] | [place] [address] | | | | | [phone] | [phone] | | | | | | | [...] | | | | | [place] [address] | | | | | | [phone] | | | | | | | | +--------+---------+ + + + | 12/20/ | Office | Otolaryngology | Ulysses Genao MD | | | 2019 | Visit | | [address] | | | | | | [address] [place], | | | | | | [place] [address] | | | | | | [phone] | | | | | | | | +--------+---------+ + + + | 02/15/ | Office | Internal Medicine | Alanis, | | | 2019 | Visit | | MD Petrona | | | | | | [address] [place] [address] [address] | | | | | | [place] [address] | | | | | | [phone] | | | | | | | | +--------+---------+ + + + documented as of this encounter Visit Diagnoses Not on filedocumented in this encounter"
--- OUTSIDE RECORDS SUMMARY | ~2019-11-17 | XMS | Encounter Summary ---
Demographics + + + | Address | [address] | | | [place] [address] | + + + | Home Phone [...] Providers + +------+ + | Care Robotics Software Engineer Name | Role | Phone [...] Myelopathy, Lumbar | | | | [facility] | | Region; Herniated | | | | [address] | | Lumbar | | | | Mailcode: CH15P | | Intervertebral Disc | | | | [facility] | | L4-5; Left Knee | | | | and Healing, | | Pain; Opioid | | | | Building | | [place], | | | | Floor [place], [place] | | Continuous ([facility]); | | | | [address] | | Migraine Headache; | | | | [phone] | | Fibromyalgia | | | | | | syndrome 729.1; | | | | | | Major Depressive | | | | | | Disorder, Recurrent | | | | | | Episode, Moderate | | | | | | ([facility]); Adjustment | | | | | [...] and Independent Home Exercise Program DELFINA MOLINA [facility] Mail code CH 4P [place] [facility] and [place] [address] [facility] [address] Ailyn Foster - 01/05/20 07 [...] medication refills today? yes [facility] Plan of Treatment Not on [...]
--- OUTSIDE RECORDS SUMMARY | ~2019-11-17 | XMS | Encounter Summary ---
Demographics + + + | Address | [address] | | | [place] [address] | + + + | Home Phone [...] Providers + +------+ + | Care Rn Physician Office Name | Role | Phone | [...] | Pain | Diagnoses | Miracle, | [place], | | | | Management | LBP (low | NIHARIKA Jean | Lukasz Rhodes, PhD | | | | | back pain) | [address] | [address] | | | | | [address]D | [address] | Ave | | | | | (degenerativ | [place], [place] | [place], [place] | | | | | e joint | [address] | [address] | | | | | disease) of | | Phone: | | | | | knee Knee | | [phone] | | | | | pain Major | | Fax: | | | | | depressive | | [phone] | | | | | disorder, | [...] / | Office | [facility] at [facility] | Lukasz Charles, | Major Depressive | | 2007 | Visit | [address] | PhD [address] | Disorder, Recurrent | | | | Mailcode: [facility] | [place], [place] | Episode, Moderate | | | | [place] for [facility] | [address] | ([facility]); LBP (Low Back | | | | and Healing, | [phone] | Pain); Fibromyalgia | | | | | | syndrome 729.1; | | | | Floor [place], [place] | | Adjustment Disorder | | | | [address] | | with Anxiety; | | | | [phone] | | Bilateral Knee Pain; | | [...] skills during intense pain episode s. Diagnosis: [place] I: 1. (296.32) Major depressive disorder, recurrent, moderate. 2. (309.24) Adjustment disorder with anxiety. 3. 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 [place] II: Deferred [place] III: abdominal pain, migraine headache, low back pain. [place] IV: low finances [place] V: GAF 55-60 Plan: return with next medical follow-up appointment. Check mood, knee surgery, relaxatio n, activity, distraction. Continue cognitive/behavioral therapy. Total time spent with patient was approximately 45 minutes. [facility] [address] [facility], [address] [place] [address] documented in this encount er Plan of Treatment + + +--------+ + + | Name | Type | Priori | Associated Diagnoses | Order Schedule | | | | ty | | | + + +--------+ + + | [place] [facility], | Procedures | Routin | Major Depressive | Ordered: 08/13/2007 | | OFFICE (95-07) | | e | Disorder, Recurrent | | | | | | Episode, Moderate | | | | | | ([facility]) LBP (Low Back | | | [...]
--- OUTSIDE RECORDS SUMMARY | ~2019-11-17 | XMS | Encounter Summary ---
Demographics + + + | Address | [address] | | | [place] [address] | + + + | Home Phone [...] Providers + +------+ + | Care Hardboard Supervisor Name | Role | Phone | + +------+ + | Pedrito Gutierrez MD | PCP | | + +------+ + Encounter Details +--------+ + + + + | Date | Type | Department | Care Team | Description | +--------+ + + + + | 01/14/ | Telephone | [facility] | Chris Padgett, | | | 2009 | | [place] [address] | [address] [facility] | | | | | [place] Mailcode: CH4S | [facility] | | | | | Center for [facility] | [place], [place] | | | | | and Healing, | [address] | | | | | [facility] | [phone] | | | | | Floor [place], [place] | | | | | | [address] | | | | | | [phone] | | | +--------+ + + + [...]
--- OUTSIDE RECORDS SUMMARY | ~2019-11-17 | XMS | Encounter Summary ---
Demographics + + + | Address | [address] | | | [place] [address] | + + + | Home Phone [...] Providers + +------+ + | Care Bar Assistant Name | Role | Phone | [...] as of this encounter Progress Notes Interface, Fitness Supervisor In - 01/03/2006 3:02 AM [facility] [place] [address] [address], [place] [address] or November 01, 2002 Pedrito Gutierrez M.D. [facility] [address] [place] [address] RE: BELINDA MEEHAN MR #: [id number] Dear Dr. Gutierrez: Belinda was seen in [...] be referred for bariatric surgery here at [facility]. We have several physicians who perform [...] Sincerely, Maurilio Estrada M.D. KRIS / SHARIF [id number] / [id number] / [id number] / Tdocumented in this encounter Plan of Treatment Not on filedocumented as of this encounter Visit Diagnoses Not on filedocumented in this encounter"
--- OUTSIDE RECORDS SUMMARY | ~2019-11-17 | XMS | Encounter Summary ---
Demographics + + + | Address | [address] | | | [place] [address] | + + + | Home Phone [...] Providers + +------+ + | Care Fisher Pot Name | Role | Phone | + [...] | Transcriptions | + + | Interface, Press Bucker In - 06/05/2005 5:20 AM PST | | [id number] | | [id number] GEOVANNI Barnes | | | | Date: 12/06/2004 | | | | Attending Surgeon: Chris Padgett M.D. | | | | Vamper(s): | | | | Preoperative Diagnosis(es): | [...] | | BW / HS | | [id number] / [id number] / [id number] / | | | | | | | | | | | | Electronically signed by Chris Padgett 12-31-2004 03:02:45 PM | + + documented in this encounter Visit Diagnoses Not on filedocumented in this encounter"
--- OUTSIDE RECORDS SUMMARY | ~2019-11-17 | XMS | Encounter Summary ---
Demographics + + + | Address | [address] | | | [place] [address] | + + + | Home Phone [...] + | 09/22/ | [facility] | [facility] | Alanis, | Impingement syndrome | | 2018 | Encounter | [facility] [place] [facility] | MD Petrona | of right shoulder | | | | [address] [place] | [address] [facility] | | | | | [place], [place] | [place] [address] | | | | | [address] | [phone] | | | | | [phone] | | | +--------+ + + + [...] Visit | | [facility] [address] | | | | | | [address] [place] | | | | | | [place] [address] | | | | | | [phone] | | | | | | | | +--------+---------+ + + + | 12/20/ | Office | Otolaryngology | Ulysses Genao MD | | | 2019 | Visit | | [address] [place] | | | | | | [address] [place], | | | | | | [place] [address] | | | | | | [phone] | | | | | | | | +--------+---------+ + + + | 02/15/ | Office | Internal Medicine | Alanis, | | | 2019 | Visit | | MD [place]ron[place] | | | | | | [address] [place] | | | | | | [place] [address] | | | | | | [phone] | | | | | | | [...]
--- OUTSIDE RECORDS SUMMARY | ~2019-11-17 | XMS | Encounter Summary ---
Demographics + + + | Address | [address] | | | [place] [address] | + + + | Home Phone [...] Providers + +------+ + | Care Police Commanding Officer Name | Role | Phone [...]
--- OUTSIDE RECORDS SUMMARY | ~2019-11-17 | XMS | Encounter Summary ---
Demographics + + + | Address | [address] | | | [place] [address] | + + + | Home Phone [...] Providers + +------+ + | Care Clerical Administrator Name | Role | Phone | [...] + + | 11/15/ | Telephone | [facility] | Alanis, | Foot Injury | | 2019 | | MEDICINE [address] [place] [address] | MD Petrona | | | | | [facility] | [address] [place] [address] | | | | | [place] [address] | [place] [address] | | | | | [phone] | [phone] | | | | | | | [...] | | | | | [place] [address] | | | | | | [phone] | | | | | | | | +--------+---------+ + + + | 12/20/ | Office | Otolaryngology | Ulysses Genao MD | | | 2020 | Visit | | [address] [place] | | | | | | [address] [place], | | | | | | [place] [address] | | | | | | [phone] | | | | | | | | +--------+---------+ + + + | 02/15/ | Office | Internal Medicine | Alanis, | | | 2019 | Visit | | MD Petrona | | | | | | [address] | | | | | | [place] [address] | | | | | | [phone] | | | | | | | | +--------+---------+ + + + documented as of this encounter Visit Diagnoses Not on filedocumented in this encounter"
--- OUTSIDE RECORDS SUMMARY | ~2019-11-17 | XMS | Encounter Summary ---
Demographics + + + | Address | [address] | | | [place] [address] [...] + + | 06/29/ | Telephone | [facility] | Alanis, | Illness | | 2018 | | MEDICINE [address] [place] [address] | MD Petrona | | | | | [facility] | [address] [place] [address] | | | | | [place] [address] | [place] [address] | | | | | [phone] | [phone] | | | | | | | [...] | | | | | [place] [address] | | | | | | [phone] | | | | | | | | +--------+---------+ + + + | 12/20/ | Office | Otolaryngology | Ulysses Genao MD | | | 2019 | Visit | | [address] [place] | | | | | | [address] [place], | | | | | | [place] [address] | | | | | | [phone] | | | | | | | | +--------+---------+ + + + | 02/15/ | Office | Internal Medicine | Alanis, | | | 2019 | Visit | | MD Petrona | | | | | | [address] | | | | | | [place] [address] | | | | | | [phone] | | | | | | | | +--------+---------+ + + + documented as of this encounter Visit Diagnoses Not on filedocumented in this encounter"
--- OUTSIDE RECORDS SUMMARY | ~2019-11-17 | XMS | Encounter Summary ---
Demographics + + + | Address | [address] | | | [place] [address] | + + + | Home Phone [...] Providers + +------+ + | Care Forestry Extension Specialist Name | Role | Phone | [...] of this encounter Progress Notes Interface, Trim Machine Adjuster In - 09/13/2005 2:06 AM PST [id number] [facility] Date: 01/02/2005 Clinic: Endocrinology [...] months. Beto Meeks M.D. PD / HS [id number] / [id number] / [id number] / [id number] cc: Chris Padgett M.D. Electronically signed by Beto Meeks 09-12-2005 02:22:56 AM documented i n this encounter Plan of Treatment Not on filedocumented as of this encounter Visit Diagnoses Not on filedocumented in this encounter"
--- OUTSIDE RECORDS SUMMARY | ~2019-11-17 | XMS | Encounter Summary ---
Demographics + + + | Address | [address] | | | [place] [address] | + + + | Home Phone [...] Providers + +------+ + | Care Service Cleaner Name | Role | Phone | + +------+ + PCP | Unavailable | + +------+ + Encounter Details +--------+ + + + + | Date | Type | Department | Care Team | Description | +--------+ + + + + | 12/21/ | Results | Rheumatology | Caitlin Rivera, | | | 2003 | Only | [place] [address] | BIOCHEMISTRY TECHNOLOGIST | | | | | Sharmila Schilling | | | | | | Mailcode: [id number] | | | | | | Outpatient Clinic | | | | | | Building [facility] | | | | | | [place] [address] | | | | | | [phone] | | | +--------+ + + + [...] Iron and TIBC, Serum Test performed by [facility] | | | [facility]. | | + + + + + + + + | Performing | Address | City/State/Zipcode | Phone Number | | Organization | | | | + + + + + | [facility] | [address] | [place] [address] | | | LABORATORY | | | [...] | + + + + + | [facility] | [address] | [place] [address] | | | LABORATORY | | | [...] | | | | | performed at [facility] | | | | | | [place] [...] | + + + + + | [facility] | [address] | [place] [address] | | | LABORATORY | | | | + + + + + documented in this encounter Visit Diagnoses Not on filedocumented in this encounter"
--- OUTSIDE RECORDS SUMMARY | ~2019-11-17 | XMS | Encounter Summary ---
Demographics + + + | Address | [address] | | | [place] [address] | + + + | Home Phone [...] Providers + +------+ + | Care Money Order Clerk Name | Role | Phone | [...] | | | [address] | [address] Phone: | | | | | | [place], | [phone] | | | | | | [place] | Fax: | | | | | | [address] | [phone] | | | | | | Phone: | | | | | | | [phone] | | | | | | | Fax: | | | | | | | [phone] | | +--------+--------+ + + + + [...] Chronic neck pain; | | | | [address] | | Chronic low back | | | | [phone] | | pain; Lumbar | | | [...] of the procedure you must provide a special education bus driver to take you home. For all procedur es it is recommended that someone else drive you home. documented in this encounter Progress Notes Carlos Hsieh MD - 01/04/2015 8:13 AM PDT Carlos Hsieh MD [address] [facility], [address] [place] [address] FAX: PHYSICAL MEDICINE AND REHABILITATION H&P CHIEF COMPLAINT: Chief Complaint Patient presents with Neck Pain Neck pain that radiates between the shoulder blades and down from there HISTORY OF PRESENT ILLNESS: The patient is a 54 y.o. female being seen today at the [facility] for complaints of [...] were performed by a Dr. García in [place]. Th e patient is unable to take NSAID's because apparently last time she took them she was black and blue all over. PAST MEDICAL HISTORY: Past Medical History Diagnosis Date Diarrhea Osteoarthritis, generalized Migraine Osteopenia Obesity Syncope Hyperparathyroidism (HCC) RLS (restless legs syndrome) OLIVER (obstructive sleep apnea) Depression COPD (chronic obstructive pulmonary disease) ([facility]) Fibromyalgia Peripheral neuropathy Chronic pain Benign essential hypertension Rheumatoid arthritis ([facility]) IBS (irritable bowel syndrome) Scoliosis Hypothyroidism Stroke ([facility]) Blind left eye Arthritis Osteoporosis Migraines Dumping [...] visit. ALLERGIES: Allergies Allergen Reactions Amitriptyline Hcl Pxhziqsnog-Qxjs-Ezkxeaqv Cephalexin Ciprofloxacin Clarithromycin Clindamycin Hcl Codeine Sulfate [...] has no apparent deficits with short or keno terminal operator memory. She has appropriate fund of [...] of the cervical spine next week at [facility]. The patient was informed to contact [...] | | | | | [place] [address] | | | | | | [phone] | | | | | | | | +--------+---------+ + + + | 12/20/ | Office | Otolaryngology | Ulysses Genao MD | | | 2019 | Visit | | [address] [place] | | | | | | [address] [place], | | | | | | [place] [address] | | | | | | [phone] | | | | | | | | +--------+---------+ + + + | 02/15/ | Office | Internal Medicine | Alanis, | | | 2019 | Visit | | MD Petrona | | | | | | [address] [place] [address] [address] | | | | | | [place] [address] | | | | | | [phone] | | | | | | | [...] radiculopathy ICD-9 Code 724.4 Belinda Basilio | [facility] | | Shefali presents to the fluoroscopy suite for [facility] | | fluoroscopically-guided bilateral L5-S1 transforaminal epidural [...] ST. | [address] | [place] | [phone] | | [facility] | | [address] | | | - IMAGING | | [...]
--- OUTSIDE RECORDS SUMMARY | ~2019-11-17 | XMS | Encounter Summary ---
Demographics + + + | Address | [address] | | | [place] [address] | + + + | Home Phone [...] Providers + +------+ + | Care Hand Button Splitter Name | Role | Phone | [...] + + | 09/15/ | Office | [facility] | Emmy-Tajti, | Pain in right lower | | 2019 | Visit | MEDICINE [address] | MD Petrona | leg (Primary Dx); | | | | [address] [place] | [address] [facility] | Fall in bathtub, | | | | [place] [address] | [place] [address] | initial encounter; | | | | [phone] | [phone] | Other osteoporosis | | | | [...] Palpitations Peripheral neuropathy Rheumatoid arthritis ([facility] [...] (See Comments) Confused and questionable for seizures Ovawikxfpa-Oqvs-Ooymcuql Hives and Rash Cephalexin Hives Ciprofloxacin Hives [...] Note: Parts of this documentwere created using Logic[employer] speech recognition software. As a r esult, [...] | | | | | [place] [address] | | | | | | [phone] | | | | | | | | +--------+---------+ + + + | 12/20/ | Office | Otolaryngology | Ulysses Genao MD | | 2019 | Visit | | [address] [place] | | | | | | [address] [place], | | | | | | [place] [address] | | | | | | [phone] | | | | | | | | +--------+---------+ + + + | 02/15/ | Office | Internal Medicine | Alanis, | | | 2019 | Visit | | MD Petrona | | | | | | [address] [place] | | | | | | [place] [address] | | | | | | [phone] | | | | | | | [...] | | First dose on [facility] 10/15/17 at 1215 | | | [...]
--- OUTSIDE RECORDS SUMMARY | ~2019-11-17 | XMS | Encounter Summary ---
Demographics + + + | Address | [address] | | | [place] [address] | + + + | Home Phone [...] Providers + +------+ + | Care Manager Gallery Name | Role | Phone | + [...] | | | | [address] | [address] Phone: | | | | | | [place], | [phone] | | | | | | [place] | Fax: | | | | | | [address] | [phone] | | | | | | Phone: | | | | | | | [phone] | | | | | | | Fax: | | | | | | | [phone] | | +--------+--------+ + + + + Encounter Details +--------+---------+ + + + | Date | Type | Department | Care Team | Description | +--------+---------+ + + + | 11/28/ | Office | [facility] | Carlos Hsieh | NO SHOW (Primary Dx) | | 2014 | Visit | PHYSIATRY [address] | T, [address] | | | | [address] | [place], [place] | | | | | [place], [place] | [address] | | | | | [address] | | | | | | [phone] | Joe, | | | | | | MARY Montero [address] | | | | | | [address] | | | | | | [place] [address] | | | | | | [phone] | | | | | | | [...] | | [facility] [address] | | | | | | [facility] [address] [facility] | | | | | | [place] [address] | | | | | | [phone] | | | | | | | | +--------+---------+ + + + | 12/20/ | Office | Otolaryngology | Ulysses Genao MD | | | 2019 | Visit | | [address] [place] | | | | | | [address] [place] | | | | | | [place] [address] | | | | | | [phone] | | | | | | | | +--------+---------+ + + + | 02/15/ | Office | Internal Medicine | EmmyCarmen, | | | 2019 | Visit | | MD Petrona | | | | | | [address] [place] | | | | | | [place] [address] | | | | | | [phone] | | | | | | | | +--------+---------+ + + + documented as of this encounter Visit Diagnoses + + | Diagnosis | + + | No Show - Primary Code used for vists where the patient is not seen | + + documented in this encounter"
--- OUTSIDE RECORDS SUMMARY | ~2019-11-17 | XMS | Encounter Summary ---
Demographics + + + | Address | [address] | | | [place] [address] | + + + | Home Phone [...] Providers + +------+ + | Care Cement Mason High[address] [employer] Streets Name | Role | Phone | + [...] + | 11/15/ | Office | [facility] | Emmy-Tajti, | Arthralgia of both | | 2019 | Visit | MEDICINE [address] | MD Petrona | hands (Primary Dx); | | | | Street [place] | [address] [facility] | Acquired | | | | [place] [address] | [place] [address] | hypothyroidism; | | | | [phone] | [phone] | Migraine without | | | | [...] Procedure: COLONOSCOPY; Surgeon: Luther Brito MD; Location: [facility] MEDICAL PROCEDURE UNIT DILATION AND CURETTAGE OF UTERUS ELBOW SURGERY FINGER TRIGGER RELEASE 2003 FINGER TRIGGER RELEASE 2010 GASTRIC BYPASS SURGERY 2004 HYSTERECTOMY 05/14/1980 JOINT REPLACEMENT Bilateral 2007 2008 KNEE ARTHROSCOPY 2005 LAPAROSCOPY 01/27/2015 LAPAROTOMY 2008 ROTATOR CUFF REPAIR 2005 SPINE SURGERY TONSILLECTOMY 1964 UPPER GASTROINTESTINAL ENDOSCOPY N/A 12/18/2017 Procedure: EGD; Surgeon: Luther Brito MD; Location: [facility] MEDICAL PROCEDURE UNIT CURRENT MEDICATIONS Current [...] (See Comments) Confused and questionable for seizures Ivhjhxpsrb-Cyoc-Qefvfxfa Hives and Rash Cephalexin Hives Ciprofloxacin Hives [...] Note: Parts of this documentwere created using Tiipz.[employer] speech recognition software. As a r esult, [...] Visit | | [facility] [address] | | | | | | [place] | | | | | | [place] [address] | | | | | | [phone] | | | | | | | | +--------+---------+ + + + | 12/20/ | Office | Otolaryngology | Ulysses Genao MD | | | 2019 | Visit | | [address] | | | | | | [address] [place], | | | | | | [place] [address] | | | | | | [phone] | | | | | | | | +--------+---------+ + + + | 02/15/ | Office | Internal Medicine | Alanis, | | | 2019 | Visit | | MD Petrona | | | | | | [address] [place] | | | | | | [place] [address] | | | | | | [phone] | | | | | | | [...] [address] | [place] | [phone] | | [facility] | | [address] | | | - LABORATORY | | [...] | | | | | with both [place] and | | | | | | [...] + | Performed at: 01 - [facility] [address], | REFERENCE LAB | | [place], [place] [id number] Elementary Principal: Manish Chin MD, Phone: | [employer] [facility] [employer] [facility] | | [phone] Performed at: - [facility] [address] | | | [place], [place] [address] Elementary Principal: Jeannine Mendoza MD, | | | Phone: [phone] | | + + + + + + + + | Performing | Address | City/State/Zipcode | Phone Number | | Organization | | | | + + + + + | REFERENCE LAB | [address] | [place], [place] | [phone] | | [facility] | [facility] | [address] | | + + + + + [...] + + | Performed at: 01 - [facility] [address], | REFERENCE LAB | | [place], [place] [address] Elementary Principal: Bandar Gan MD, Phone: | [facility] | | [phone] | | + + + + + + + + | Performing | Address | City/State/Zipcode | Phone Number | | Organization | | | | + + + + + | REFERENCE LAB | [address] | [place], [place] | [phone] | | [facility] | [place] | [address] | | + + + + + [...] + | [facility] | [address] | [place] | [phone] | | [facility] | | [address] | | | - LABORATORY | | [...] [address] | [place] | [phone] | | [facility] | | [address] | | | - LABORATORY | | [...] [address] | [place] | [phone] | | [facility] | | [address] | | | - LABORATORY | | [...] | | | | mmol/L | [facility] | | | | | | MEDICAL [...] | 0.82 | 0.55 - 1.02 | [facility] | | | | | mg/dL | [facility] | | | | | | MEDICAL | | | | | | CENTER - | | | | | | LABORATORY | | + + + + + + | eGFR if not | >60Comment: GLOMERULAR | >=60 | [facility] | | | | FILTRATION | mL/min/1.73m2 | [facility] | | | [place] | RATE,ESTIMATED | | MEDICAL | | | | mL/min/1.47r6Wxwx than | | CENTER - | | [...] + | [facility] [facility] | [address] | [place], [place] | [phone] | | [facility] | | [address] | | | - LABORATORY | | [...]
--- OUTSIDE RECORDS SUMMARY | ~2019-11-17 | XMS | Encounter Summary ---
Demographics + + + | Address | [address] | | | [place] [address] | + + + | Home Phone [...] Providers + +------+ + | Care Medical Instrument Technician Name | Role | Phone [...] Thoracic or | [place], | [address] | | | | | lumbosacral | Carlos Armijo MD | [place], | | | | | neuritis or | [address] | [place] | | | | | | [place] | [address] | | | | | radiculitis, | [place], [place] | Phone: | | | | | unspecified | [address] | [phone] | | | | | Procedures | Phone: | Fax: | | | | | CT INJECT | [phone] | [phone] | | | | | ANES/STEROID | Fax: | | | | | | FORAMEN | [phone] | | | | | | LUMBAR/SACRA | | | | | | | L W IMG | | | | | | | GUIDE ,1 | | | | | | | LEVEL CT | | | | | | [...] + + + + | 01/19/ | [facility] | [facility] | Carlos Hsieh | Lumbar radiculopathy | | 2015 | Encounter | MED CTR XRAY [address] | T, [address] | primarily right | | | | [place] | [facility] [place] | | | | | [place] [address] | [id number] | | | | | [phone] | | | | | | | Shift ManagerKristyn | | | | | | [place] [...] | | | | | [place] [address] | | | | | | [phone] | | | | | | | | +--------+---------+ + + + | 12/20/ | Office | Otolaryngology | Ulysses Genao MD | | | 2019 | Visit | | [address] | | | | | | [address] [place], | | | | | | [place] [address] | | | | | | [phone] | | | | | | | | +--------+---------+ + + + | 02/15/ | Office | Internal Medicine | Alanis, | | | 2019 | Visit | | MD [place] | | | | | | [address] [facility] | | | | | | [place] [address] | | | | | | [phone] | | | | | | | [...] ICD-9 Code 724.4 Belinda Basilio | [facility] | | Shefali presents to the fluoroscopy suite for | [facility] | | fluoroscopically-guided bilateral L5-S1 [...] [address] | [place] | [phone] | | [facility] | | [address] | | | - IMAGING | | [...]
--- OUTSIDE RECORDS SUMMARY | ~2019-11-17 | XMS | Encounter Summary ---
Demographics + + + | Address | [address] | | | [place] [address] | + + + | Home Phone [...] Team Providers + +------+ + | Care Eeg Technologist Name | Role | Phone | [...] + | 06/25/ | Telephone | [facility] | Alanis, | Illness | | 2018 | | MEDICINE [address] [place] [address] | MD Petrona | | | | | [facility] | [address] [place] [address] | | | | | [place] [address] | [place] [address] | | | | | [phone] | [phone] | | | | | | | [...] | | | | | [place] [address] | | | | | | [phone] | | | | | | | | +--------+---------+ + + + | 12/20/ | Office | Otolaryngology | Ulysses Genao MD | | | 2019 | Visit | | [address] | | | | | | [address] [place], | | | | | | [place] [address] | | | | | | [phone] | | | | | | | | +--------+---------+ + + + | 02/15/ | Office | Internal Medicine | Alanis, | | | 2019 | Visit | | MD [place]rona | | | | | | [address] | | | | | | [place] [address] | | | | | | [phone] | | | | | | | | +--------+---------+ + + + documented as of this encounter Visit Diagnoses Not on filedocumented in this encounter"
--- OUTSIDE RECORDS SUMMARY | ~2019-11-17 | XMS | Encounter Summary ---
Demographics + + + | Address | [address] | | | [place] [address] | + + + | Home Phone [...] Team Providers + +------+ + | Care Periodicals Library Assistant Name | Role | Phone | [...] + + | 05/04/ | Refill | [facility] | Alanis, | Medication Refill | | 2017 | | MEDICINE [address] [place] [address] | MD Petrona | | | | | [facility] | [address] [place] [address] | | | | | [place] [address] | [place] [address] | | | | | [phone] | [phone] | | | | | | | [...] | | | | | [place] [address] | | | | | | [phone] | | | | | | | | +--------+---------+ + + + | 12/20/ | Office | Otolaryngology | Ulysses Genao MD | | | 2019 | Visit | | [address] | | | | | | [address] [place], | | | | | | [place] [address] | | | | | | [phone] | | | | | | | | +--------+---------+ + + + | 02/15/ | Office | Internal Medicine | Alanis, | | | 2019 | Visit | | MD [place]ron[place] | | | | | | [address] [place] [address] [address] | | | | | | [place] [address] | | | | | | [phone] | | | | | | | | +--------+---------+ + + + documented as of this encounter Visit Diagnoses Not on filedocumented in this encounter"
--- OUTSIDE RECORDS SUMMARY | ~2019-11-17 | XMS | Encounter Summary ---
Demographics + + + | Address | [address] | | | [place] [address] | + + + | Home Phone [...] Providers + +------+ + | Care Finance Effectiveness Manager Name | Role | Phone | [...] + + | 11/26/ | Refill | [facility] | Alanis, | Medication Refill | | 2018 | | MEDICINE [address] [place] [address] | MD Petrona | | | | | [facility] | [address] [place] [address] | | | | | [place] [address] | [place] [address] | | | | | [phone] | [phone] | | | | | | | [...] | | | | | [place] [address] | | | | | | [phone] | | | | | | | | +--------+---------+ + + + | 12/20/ | Office | Otolaryngology | Ulysses Genao MD | | | 2019 | Visit | | [address] | | | | | | [address] [place], | | | | | | [place] [address] | | | | | | [phone] | | | | | | | | +--------+---------+ + + + | 02/15/ | Office | Internal Medicine | EmmyAlberto, | | | 2019 | Visit | | MD [place] | | | | | | [address] | | | | | | [place] [address] | | | | | | [phone] | | | | | | | | +--------+---------+ + + + documented as of this encounter Visit Diagnoses + + | Diagnosis | + + | Chronic diarrhea Diarrhea | + + documented in this encounter"
--- OUTSIDE RECORDS SUMMARY | ~2019-11-17 | XMS | Encounter Summary ---
Demographics + + + | Address | [address] | | | [place] [address] | + + + | Home Phone [...] Providers + +------+ + | Care Gas Meter Repairer Name | Role | Phone | [...] | | [address] | [place] [address] | | | | | | [address] | Phone: | | | | | | [place], | [phone] | | | | | | [place] | Fax: | | | | | | [address] | [phone] | | | | | | Phone: | | | | | | | [phone] | | | | | | | Fax: | | | | | | | [phone] | | +--------+ + + + + + Encounter Details +--------+---------+ + + + | Date | Type | Department | Care Team | Description | +--------+---------+ + + + | 10/18/ | Office | [facility] | Emmy-Kamlesh, | Obesity (BMI | | 2018 | Visit | GASTROENTEROLOGY | MD [place] | 30.0-34.9) (Primary | | | | [address] | [address] [place] | Dx); Nausea; Dumping | | | | [address] [place], [place]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; [place] | | | | [address] | 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); | | | | [phone] | | Gastroesophageal | | | | | Luther Brito MD | reflux disease, | | | | | [address] | esophagitis presence | | | | | [place], [place] | not specified | | | | | [address] | | | | | | [phone] | | | | | | | [...] [address] | | | | | | [phone] | | | | | | | | +--------+---------+ + + + | 12/20/ | Office | Otolaryngology | Ulysses Genao MD | | | 2019 | Visit | | [address] | | | | | | [address], | | | | | | [place] [address] | | | | | | [phone] | | | | | | | | +--------+---------+ + + + | 02/15/ | Office | Internal Medicine | Alanis, | | | 2019 | Visit | | [place] | | | | | | [address] | | | | | | [place] [address] | | | | | | [phone] | | | | | | | [...]
--- OUTSIDE RECORDS SUMMARY | ~2019-11-17 | XMS | Encounter Summary ---
Demographics + + + | Address | [address] | | | [place] [address] | + + + | Home Phone [...] Team Providers + +------+ + | Care Knee Bolter Name | Role | Phone | + [...] Rd | | | | | | [place], [place] | | | | | | [address] | | | +--------+ + + + [...] as of this encounter Progress Notes Interface, Women'S Basketball Coach In - 12/06/2006 2:32 AM PDT [id number] GEOVANNI Barnes [id number] Clinic Date: 10/29/2006 Clinic: Endocrinology Subjective: Belinda [...] working with the Pain Clinic at [facility] to optimize her pain management. [...] months. Beto Meeks M.D. PD / HS [id number] / [id number] / [id number] / [id number] cc: Pedrito Gutierrez M.D. [address] [address] Chris Padgett M.D. Electronically signed by Beto Meeks 12-05-2006 05:17:05 AM documented in this encounter Plan of Treatment Not on filedocumented as of this encounter Visit Diagnoses Not on filedocumented in this encounter"
--- OUTSIDE RECORDS SUMMARY | ~2019-11-17 | XMS | Encounter Summary ---
Demographics + + + | Address | [address] | | | [place] [address] | + + + | Home Phone [...] Providers + +------+ + | Care Casting Finisher Name | Role | Phone | [...] + + | 06/30/ | Refill | [facility] | Alanis, | Medication Refill | | 2018 | | MEDICINE [address] [place] [address] | MD Petrona | | | | | [facility] | [address] [place] [address] | | | | | [place] [address] | [place] [address] | | | | | [phone] | [phone] | | | | | | | [...] | | | | | [place] [address] | | | | | | [phone] | | | | | | | | +--------+---------+ + + + | 12/20/ | Office | Otolaryngology | Ulysses Genao MD | | | 2019 | Visit | | [address] [place] | | | | | | [address] [place], | | | | | | [place] [address] | | | | | | [phone] | | | | | | | | +--------+---------+ + + + | 02/15/ | Office | Internal Medicine | EmmyCarmen, | | | 2019 | Visit | | MD Petrona | | | | | | [address]la [address] | | | | | | [place] [address] | | | | | | [phone] | | | | | | | | +--------+---------+ + + + documented as of this encounter Visit Diagnoses + + | Diagnosis | + + | Chronic bilateral low back pain without sciatica | + + documented in this encounter"
--- OUTSIDE RECORDS SUMMARY | ~2019-11-17 | XMS | Encounter Summary ---
Demographics + + + | Address | [address] | | | [place] [address] | + + + | Home Phone [...] Team Providers + +------+ + | Care Mycology Teacher Name | Role | Phone | [...] CH15P | | | | | | [place] [facility] | | | | | | and Healing, | | | | | | | | | | | | Floor [place], [place] | | | | | | [address] | | | | | | [phone] | | | +--------+ + + + [...]
--- OUTSIDE RECORDS SUMMARY | ~2019-11-17 | XMS | Encounter Summary ---
Demographics + + + | Address | [address] | | | [place] [address] | + + + | Home Phone [...] Team Providers + +------+ + | Care German Professor Name | Role | Phone | [...] as of this encounter Progress Notes Byron, Behavioral Services Tech In - 01/12/2005 6:46 AM PDTClinic Date: [...] months. Chris Padgett M.D. CD / HS [id number] / [id number] / [id number] / Tdocumented in this encounter Plan of Treatment Not on filedocumented as of this encounter Visit Diagnoses Not on filedocumented in this encounter"
--- OUTSIDE RECORDS SUMMARY | ~2019-11-17 | XMS | Encounter Summary ---
Demographics + + + | Address | [address] | | | [place] [address] | + + + | Home Phone [...] Mychal Kovacs | | | | | [facility] | [place], [place] | | | | | [address] | [address] | | | | | [address] | [phone] | | | | | [facility] | | | | | | Physician's | | | | | | Pavilion [place], | | | | | | [place] [address] | | | | | | [phone] | | | +--------+ + + + [...]
--- OUTSIDE RECORDS SUMMARY | ~2019-11-17 | XMS | Clinical Summary ---
[...] Providers + +------+ + | Care Security Assistant Name | Role | Phone | + +------+ + | Sulaiman Carrera MD | PCP | | + +------+ + Source Comments MARK is fully live on both [facility] and [facility] Allergies + + + [...] + + + + + + | Snkxnby-Nkugbieznz-V | | | 08/29/19 | Balance problems [...] in | | | | | | [facility]) | | | | | [...] | imbalances, sleep apnea, neck pain, medication [id number] | + + + + + | [...] | B | | sent | | [place], [place] | | | | | | | | [address] | | + +--------+ +--------+ + +--------+ | FURNACE CLEANER MEDICAID | FURNACE CLEANER | xxxxxxxx | | | | Medica [...] | 1960 | [phone] | [place] [address] | | | bijan | | | 3 (Home) | | + +--------+ +--------+ + + | Belinda Meehan | Medica | Self | [birth year] | | [address] | | | re | | 9 | [phone] | [place] [address] | | | Recurr | | | 3 (Home) | | | | ing | | | | | + +--------+ +--------+ + + Advance Directives + + + + + | Type | Date Recorded | Patient | Explanation | | | | Outside Food Server | | + + + + + | Advance | 11/19/2004 12:00 | | ADVANCE DIRECTIVE | | Directives and | AM | | | | Living Will | | | | + + + + + | Power of | | | | | Gis Programmer | | | | + + + [...]
--- OUTSIDE RECORDS SUMMARY | ~2019-11-17 | XMS | Encounter Summary ---
Demographics + + + | Address | [address] | | | [place] [address] | + + + | Home Phone [...] Providers + +------+ + | Care Tube Machine Operator Helper Name | Role | [...] as of this encounter Progress Notes Interface, Unit Reactor Operator In - 08/19/2005 2:05 AM PST [id number] GEOVANNI Barnes Clinic Date: 07/29/2005 Clinic: Hematology [...] pursue aggressive iron supplementation. Lukasz Sellers M.D. full time babysitter [employer] / SHARIF [id number] / [id number] / [id number] / [id number] cc: Pedrito Gutierrez M.D. [address] [place] [address] Electronically signed by Lukasz Sellers 08-18-2005 01:28:12 PM documented i n this encounter Plan of Treatment Not on filedocumented as of this encounter Visit Diagnoses Not on filedocumented in this encounter"
--- OUTSIDE RECORDS SUMMARY | ~2019-11-17 | XMS | Encounter Summary ---
Demographics + + + | Address | [address] | | | [place] [address] | + + + | Home Phone [...] Providers + +------+ + | Care Stock Pitcher Name | Role | Phone | + [...] | | | | | hemorrhoid | [place], [place] | [address] | | | | | Rectal pain | [address] | [facility] | | | | | Procedures | | Rd [place], | | | | | CONSULT TO | | [place] | | | | | [place] | | [address] | | | | | SURGERY | | Phone: | | | | | | | [phone] | | | | | | | Fax: | | | | | | | [phone] | +--------+--------+ + + + + Encounter [...] | | | | Mailcode: Center | [place], [place] | | | | | [facility] and | [address] | | | | | [facility] 2 | [phone] | | | | | [place], [place] | | | | | | [address] | | | | | | [phone] | | | +--------+---------+ + + + [...] stool. She had a normal colonoscopy at [facility] in 2005 PMH: Past Medical [...] 08/2007 right knee Hx lumbar fusion 05/2008 [id number] with bone spur removals Hx appendectomy Hx [...] Morphine IM ( only in [facility]) made gut pain worse 08/27/06: Trial of oral MSIR caused leg swelling Clarithromycin Hives Mainly in the legs Vicguog-jazrjamkap-kod-caff Balance problems Amitriptyline Grand mal seizures SH: [...] + + +--------+ + + | [place] [facility] | Procedures | Routin | Anal or Rectal | Ordered: 10/05/2008 | | ANOSCOPY | | e | Pain | | + + +--------+ + + documented as of this encounter Visit Diagnoses + + | Diagnosis | + + | Anal or rectal pain - Primary | + + documented in this encounter
--- OUTSIDE RECORDS SUMMARY | ~2019-11-17 | XMS | Encounter Summary ---
Demographics + + + | Address | [address] | | | [place] [address] | + + + | Home Phone [...] Providers + +------+ + | Care Plater Apprentice Name | Role | Phone | [...] 05/29/ | Office | Pain Center at [facility] | Lukasz Charles, | Major Depressive | | 2005 | Visit | [address] | PhD [address] | Disorder, Recurrent | | | | Mailcode: CH15P | [place], [place] | Episode, Moderate | | | | [facility] | [address] | ([facility]); Chronic | | | | and Healing, | [phone] | Abdominal Pain; | | | | Building | | Cervical Pain; | | | | Floor [place], [place] | | Headache; Adjustment | | | | [address] | | Disorder with | | | | [phone] | | Anxiety; Other Pain | | [...] Notes Lukasz Charles - 05/29/2006 6:15 PM [facility] Initial Psychological Wendy luation IDENTIFYING INFORMATION: Belinda Meehan is a 46 y.o. female Date of : 1960 Consulting Physician: LUKASZ CHARLES PHD Consultation Date: 05/29/2006 Referring Provider: Carlos Arreola Identifying Information: Belinda Meehan is a 46 y.o. female who lives in [facility] [place] [facility] her 2 sons. The patient was [...] disability benefits. 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 Marital History: , not currently in [...] and decreasing depression and anx iety. Diagnosis: Newhope I: 1. (296.32) Major depressive disorder, recurrent, moderate. 2. (309.24) Adjustment disorder with anxiety. 3. 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 Newhope II: Deferred Newhope III: abdominal pain, migraine headache, low back pain. Newhope IV: low finances Newhope V: GAF 50 Recommendations: 1. Psychological counseling to increase knowledge and use of cognitive and behavioral pain coping skills is recommended. The treatment should include relaxation training to improve c ontrol over physiologic responses to pain. Treatment should also focus on decreasing sympto ms of depression and increasing participation in social, recreational and leisure activities . Ms. 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 LUKASZ CHARLES PHD [facility] [address] [place] [address] And [facility], [address] [place] [address] documented in this [facility] Plan of Treatment + + [...] | | | | | ([facility]) Chronic | | | | | | [...]
--- OUTSIDE RECORDS SUMMARY | ~2019-11-17 | XMS | Encounter Summary ---
Demographics + + + | Address | [address] | | | [place] [address] | + + + | Home Phone [...] Team Providers + +------+ + | Care Wireless Technician Name | Role | Phone | [...] + + | 03/25/ | Refill | [facility] | Alanis, | Medication Refill | | 2016 | | MEDICINE [address] [place] [address] | MD Petrona | | | | | [facility] | [address] [place] [address] | | | | | [place] [address] | [place] [address] | | | | | [phone] | [phone] | | | | | | | [...] | | | | | [place] [address] | | | | | | [phone] | | | | | | | | +--------+---------+ + + + | 12/20/ | Office | Otolaryngology | Ulysses Genao MD | | | 2019 | Visit | | [address] [place] | | | | | | [address] [place], | | | | | | [place] [address] | | | | | | [phone] | | | | | | | | +--------+---------+ + + + | 02/15/ | Office | Internal Medicine | Alanis, | | | 2019 | Visit | | MD Petrona | | | | | | [address] [place] [address] [place] | | | | | | [place] [address] | | | | | | [phone] | | | | | | | | +--------+---------+ + + + documented as of this encounter Visit Diagnoses Not on filedocumented in this encounter"
--- OUTSIDE RECORDS SUMMARY | ~2019-11-17 | XMS | Encounter Summary ---
Demographics + + + | Address | [address] | | | [place] [address] [...] Team Providers + +------+ + | Care Tumble Tailstock Turret Lathe Operator Name | Role | Phone [...] | 2006 | Visit | [facility] | MD Darrion,PhD [address] | (Primary Dx) | | | | for [facility] and | [address] | | | | | Healing [address] | [place], [place] | | | | | Ave Mailcode: | [address] | | | | | CH12A [facility] | [phone] | | | | | Health and Healing, | | | | | | [facility] | | | | | | Floor [place], [place] | | | | | | [address] | | | | | | [phone] | | | +--------+---------+ + + + [...] in [facility]) made gut pain worse REVIEW OF SYSTEMS: [...] normal limits except as noted. RIGHT LEFT Bis[place] Crepitation J Sign Apprehension LIGAMENTS: Within normal [...] are not effective. Angel Morales M.D., Ph.D. Pharmacy Aide, Surgical Car Loader Orthopedics & Cartilage Reconstruction Surgery Department of Orthopedics [email or web address] documented in this encou nter Plan of Treatment Not on filedocumented as of this encounter Visit Diagnoses + + | Diagnosis | + + | Osteoarthrosis, unspecified whether generalized or localized, lower leg - Primary | + + documented in this encounter
--- OUTSIDE RECORDS SUMMARY | ~2019-11-17 | XMS | Encounter Summary ---
Demographics + + + | Address | [address] | | | [place] [address] | + + + | Home Phone [...] Providers + +------+ + | Care Credit Collection Associate Name | Role | Phone | [...] [address]ifer | | | | | [facility] | [place], [place] | | | | | [address] | [address] | | | | | [address] | [phone] | | | | | [facility] | | | | | | Physician's | | | | | | Pavilion [place], | | | | | | [place] [address] | | | | | | [phone] | | | +--------+--------+ + + + [...]
--- OUTSIDE RECORDS SUMMARY | ~2019-11-17 | XMS | Encounter Summary ---
Demographics + + + | Address | [address] | | | [place] [address] | + + + | Home Phone [...] Providers + +------+ + | Care Die Reamer Name | Role | Phone | [...] + + | 07/27/ | Telephone | [facility] | Alanis, | Other | | 2020 | | MEDICINE [address] [place] [address] | MD Petrona | | | | | [facility] | [address] [place] [address] | | | | | [place] [address] | [place] [address] | | | | | [phone] | [phone] | | | | | | | [...] | | | | | [place] [address] | | | | | | [phone] | | | | | | | | +--------+---------+ + + + | 12/20/ | Office | Otolaryngology | Ulysses Genao MD | | | 2019 | Visit | | [address] [place] | | | | | | [address] [place], | | | | | | [place] [address] | | | | | | [phone] | | | | | | | | +--------+---------+ + + + | 02/15/ | Office | Internal Medicine | Alanis, | | | 2019 | Visit | | MD Petrona | | | | | | [address] | | | | | | [place] [address] | | | | | | [phone] | | | | | | | | +--------+---------+ + + + documented as of this encounter Visit Diagnoses Not on filedocumented in this encounter"
--- OUTSIDE RECORDS SUMMARY | ~2019-11-17 | XMS | Encounter Summary ---
Demographics + + + | Address | [address] | | | [place] [address] | + + + | Home Phone [...] Providers + +------+ + | Care Sand Shoveler Name | Role | Phone | + [...] 09/09/ | Office | Pain Center at [facility] | Lukasz Charles, | Major Depressive | | 2006 | Visit | [address] | PhD [address] | Disorder, Recurrent | | | | Mailcode: CH15P | [place], [place] | Episode, Moderate | | | | [facility] | [address] | (HCC); DJD | | | | and Healing, | [phone] | (Degenerative Joint | | | | Building | | Disease) of Left | | | | Floor [place], [place] | | Knee; Neck Pain; | | | | [address] | | Herniated Lumbar | | | | [phone] | | Intervertebral Disc | | | [...] is making an effort to improve. Diagnosis: Delray I: 1. (296.32) Major depressive disorder, recurrent, moderate. 2. (309.24) Adjustment disorder with anxiety. 3. 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 Delray II: Deferred Delray III: abdominal pain, migraine headache, low back pain. Delray IV: low finances Delray V: GAF 50 Plan: Return in 2 weeks. Check preparation for niece's visit, [employer] gym, pacing, relaxation, ac tivity, distraction. Check managing Pain... book. Continue cognitive/behavioral therapy. Total time spent with patient was approximately 45 minutes. LUKASZ CHARLES PHD [facility] [address] [facility] [address] [place] [address] documented in this encount er Plan of [...]
--- OUTSIDE RECORDS SUMMARY | ~2019-11-17 | XMS | Encounter Summary ---
Demographics + + + | Address | [address] | | | [place] [address] | + + + | Home Phone [...] | | sciatica | [address] | [address] | | | | | Lumbar | [place], | Phone: | | | | | stenosis | [place] | [phone] | | | | | Opiate | [address] | Fax: | | | | | dependence, | Phone: | [phone] | | | | | continuous | [phone] | | | | | | (HCC) | Fax: | | | | | | | [phone] | | +--------+ + + + + + Reason for Visit + + + | Reason | Comments | + + + | Medication Refill | | + + + Encounter Details +--------+---------+ + + + | Date | Type | Department | Care Team | Description | +--------+---------+ + + + | 02/23/ | Office | [facility] | Emmy-Tajti, | B12 deficiency | | 2017 | Visit | MEDICINE [address] [place] [address] | MD Petrona | (Primary Dx); | | | | [facility] | [address] [place] [address] | Chronic bilateral | | | | [place] [address] | [place] [address] | low back pain | | | | [phone] | [phone] | without sciatica; | | | | [...] AM PDTWe are referr ing you to [facility] in [place]. B12 shot today. documented in this encounter [...] interested in seein a pain clinic in [facility] as she is an [place] resident. [...] Chronic pain COPD (chronic obstructive pulmonary disease) ([facility]) Depression Diarrhea Dumping syndrome Fibromyalgia Hyperparathyroidism ([facility]) Hypothyroidism IBS (irritable bowel syndrome) Lumbar radiculopathy primarily right 01/04/2015 Meniere syndrome Migraine Migraines Obesity OLIVER (obstructive sleep apnea) Osteoarthritis, generalized Osteopenia Osteoporosis Peripheral neuropathy ([facility]) Rheumatoid arthritis ([facility]) Right arm pain 01/04/2015 RLS (restless legs syndrome) S/P lumbar fusion 01/04/2015 Scoliosis Stroke ([facility]) Syncope Tremor FAMILY HISTORY Family History [...] Reactions Levofloxacin Hives and Itching Amitriptyline Hcl Envdkkrhtj-Xjcm-Yuctcaak Cephalexin Ciprofloxacin Clarithromycin Clindamycin Hcl Codeine Sulfate [...] [facility] | | | | | | [facility] [address] [facility] | | | | | | [place] [address] | | | | | | [phone] | | | | | | | | +--------+---------+ + + + | 12/20/ | Office | Otolaryngology | Ulysses Genao MD | | | 2019 | Visit | | [address] [place] | | | | | | [address] [place], | | | | | | [place] [address] | | | | | | [phone] | | | | | | | | +--------+---------+ + + + | 02/15/ | Office | Internal Medicine | Alanis, | | | 2019 | Visit | | MD Petrona | | | | | | [address] | | | | | | [place] [address] | | | | | | [phone] | | | | | | | [...]
--- OUTSIDE RECORDS SUMMARY | ~2019-11-17 | XMS | Encounter Summary ---
Demographics + + + | Address | [address] | | | [place] [address] | + + + | Home Phone [...] Providers + +------+ + | Care Bolt Machine Operator Name | Role | Phone [...] 11/24/ | Office | Pain Center at [facility] | Lukasz Charles, | Major Depressive | | 2006 | Visit | [address] | PhD [address] | Disorder, Recurrent | | | | Mailcode: 15 | [place], [place] | Episode, Moderate | | | | [facility] | [address] | ([facility]); Spondylosis | | | | and Healing, | [phone] | with Myelopathy, | | | | Building | | Lumbar Region; Left | | | | Floor [place], [place] | | Knee Pain; | | | | [address] | | Adjustment Disorder | | | | [phone] | | with Anxiety; Other | | [...] some pl ans for more activity. Diagnosis: Comstock I: 1. (296.32) Major depressive disorder, recurrent, moderate. 2. (309.24) Adjustment disorder with anxiety. 3. 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 Comstock II: Deferred Comstock III: abdominal pain, migraine headache, low back pain. Comstock IV: low finances Comstock V: GAF 55-60 Plan: Return in 2 weeks. Check mood, pacing, relaxation, activity, distraction. Continue cognit gerda/behavioral therapy. Set goals for summer activity. Total time spent with patient was approximately 45 minutes. LUKASZ CHARLES PHD [facility] [address] [place] [address] And [facility], [address] [place] [address] documented in this encount er Plan of [...] | Major depressive disorder, recurrent episode, moderate ([facility]) Major depressive | | disorder, recurrent episode, moderate | + + | Spondylosis with myelopathy, lumbar region | + + | Left Knee Pain Pain in joint, lower leg | + + | Adjustment disorder with anxiety | + + | Other pain disorders related to psychological factors | + + documented in this encounter"
--- OUTSIDE RECORDS SUMMARY | ~2019-11-17 | XMS | Encounter Summary ---
Demographics + + + | Address | [address] | | | [place] [address] | + + + | Home Phone [...] Providers + +------+ + | Care Tobacco Checkout Clerk Name | Role | Phone | [...] Other (wondering | | 2008 | | [place] [address] | [address] | ablout colonoscopy) | | | | Ave Mailcode: CH4S | [facility] | | | | | [facility] | [place], [place] | | | | | and [place], | [address] | | | | | [facility] | [phone] | | | | | [place], [place] | | | | | | [address] | | | | | | [phone] | | | +--------+ + + + [...]
--- OUTSIDE RECORDS SUMMARY | ~2019-11-17 | XMS | Encounter Summary ---
Demographics + + + | Address | [address] | | | [place] [address] | + + + | Home Phone [...] Providers + +------+ + | Care Panel Fitter Name | Role | Phone | [...] [facility] | Alanis, | Fever | | 2018 | | MEDICINE [address] [place] [address] | MD Petrona | | | | | [facility] | [address] [place] [address] | | | | | [place] [address] | [place] [address] | | | | | [phone] | [phone] | | | | | | | [...] | | | | | [place] [address] | | | | | | [phone] | | | | | | | | +--------+---------+ + + + | 12/20/ | Office | Otolaryngology | Ulysses Genao MD | | | 2019 | Visit | | [address] [place] | | | | | | [address] [place], | | | | | | [place] [address] | | | | | | [phone] | | | | | | | | +--------+---------+ + + + | 02/15/ | Office | Internal Medicine | Alanis, | | | 2019 | Visit | | MD Petrona | | | | | | [address] | | | | | | [place] [address] | | | | | | [phone] | | | | | | | | +--------+---------+ + + + documented as of this encounter Visit Diagnoses Not on filedocumented in this encounter"
--- OUTSIDE RECORDS SUMMARY | ~2019-11-17 | XMS | Encounter Summary ---
Demographics + + + | Address | [address] | | | [place] [address] | + + + | Home Phone [...] Providers + +------+ + | Care Cosmetic Assembler Name | Role | Phone | [...] Pavilion | | | | | | [place], [place] | | | | | | [address] | | | | | | [phone] | | | +--------+---------+ + + + [...] take place on the hill at the [facility]: Surgeries scheduled in the [facility] ( North): registration is located on the 4th floor of [facility] (Day Surgery). Surgeries scheduled in the [facility]: registration is located on the 9th floor. Surgeries scheduled in [facility]: registration is located on the 6th floor. Surgeries scheduled in the [facility]: registration is located i n the [facility] on the first floor. For surgeries scheduled to take place at the [facility]: registration is l [...] If you use [facility], please check with your provider before [...]
--- OUTSIDE RECORDS SUMMARY | ~2019-11-17 | XMS | Encounter Summary ---
Demographics + + + | Address | [address] | | | [place] [address] [...] Providers + +------+ + | Care Service Control Operator Name | Role | Phone [...] of this encounter Progress Notes Interface, Cloth Baler In - 01/12/2005 10:09 AM PDT [id number] GE[facility]ANNI [facility] Date: 12/12/2004 Clinic: Endocrinology PHONE CONTACT NOTE The patient called me today after having surgery last week here at [facility]. Her concern was the development of 2 [...] cushion which I have ordered today through [employer], phone #[phone] and fax #[phone]. Today, the patient will monitor the decubiti closely and will be in touch with myself and her other physician depending on the progress. She also still has [address], which may be removed in one or two weeks when she returns to the Surgery Clinic at [facility]. Beto Meeks M.D. PD / HS [id number] / [id number] / [id number] / [id number] cc: Chris Padgett M.D. documented i n this encounter Plan of Treatment Not on filedocumented as of this encounter Visit Diagnoses Not on filedocumented in this encounter"
--- OUTSIDE RECORDS SUMMARY | ~2019-11-17 | XMS | Encounter Summary ---
Demographics + + + | Address | [address] | | | [place] [address] | + + + | Home Phone [...] Providers + +------+ + | Care Activities Director Name | Role | Phone | [...] + | 06/30/ | Telephone | [facility] | Alanis, | Other | | 2019 | | MEDICINE [address] [place] [address] | MD Petrona | | | | | [facility] | [address] [place] [address] | | | | | [place] [address] | [place] [address] | | | | | [phone] | [phone] | | | | | | | [...] | | | | | [place] [address] | | | | | | [phone] | | | | | | | | +--------+---------+ + + + | 12/20/ | Office | Otolaryngology | Ulysses Genao MD | | | 2019 | Visit | | [address] | | | | | | [address] [place], | | | | | | [place] [address] | | | | | | [phone] | | | | | | | | +--------+---------+ + + + | 02/15/ | Office | Internal Medicine | Alanis, | | | 2019 | Visit | | MD Petrona | | | | | | [address] | | | | | | [place] [address] | | | | | | [phone] | | | | | | | [...]
--- OUTSIDE RECORDS SUMMARY | ~2019-11-17 | XMS | Encounter Summary ---
Demographics + + + | Address | [address] | | | [place] [address] | + + + | Home Phone [...] Team Providers + +------+ + | Care Batting Machine Operator Insulation Name | Role | Phone | + [...] ANP | | | | | [facility] | | | | | | [address] [place] | | | | | | Mailcode: CH15P | | | | | | [facility] | | | | | | and Healing, | | | | | | Building | | | | | | Floor [place], [place] | | | | | | [address] | | | | | | [phone] | | | +--------+ + + + [...]
--- OUTSIDE RECORDS SUMMARY | ~2019-11-17 | XMS | Encounter Summary ---
Demographics + + + | Address | [address] | | | [place] [address] | + + + | Home Phone [...] Providers + +------+ + | Care Speech Teacher Name | Role | Phone | [...] | unspecified | | | | [address] [facility] | [address] | chronicity (Primary | | | | [place] | [place] [address] | Dx) | | | | [address] | [phone] | | | | | [phone] | | | +--------+ + + + [...] | | | | | [place] [address] | | | | | | [phone] | | | | | | | | +--------+---------+ + + + | 12/20/ | Office | Otolaryngology | Ulysses Genao MD | | | 2019 | Visit | | [address] | | | | | | [address] [place], | | | | | | [place] [address] | | | | | | [phone] | | | | | | | | +--------+---------+ + + + | 02/15/ | Office | Internal Medicine | Alanis, | | | 2019 | Visit | | MD Petrona | | | | | | [address] | | | | | | [place] [address] | | | | | | [phone] | | | | | | | [...]
--- OUTSIDE RECORDS SUMMARY | ~2019-11-17 | XMS | Encounter Summary ---
Demographics + + + | Address | [address] | | | [place] [address] | + + + | Home Phone [...] Providers + +------+ + | Care Rock Contractor Name | Role | Phone | [...] | | Center at [facility] [address] | CE[address]LAST[address] | | | | | [place] | , [address] | | | | | Mailcode: Center | [place], [place] | | | | | [facility] and | [address] | | | | | Healing, Building [address] | [phone] | | | | | [place], [place] | | | | | | [address] | | | | | | [phone] | | | +--------+ + + + [...]
--- OUTSIDE RECORDS SUMMARY | ~2019-11-17 | XMS | Encounter Summary ---
Demographics + + + | Address | [address] | | | [place] [address] | + + + | Home Phone [...] Providers + +------+ + | Care Associate Consulting Engineer Name | Role | Phone [...] | | | | [address] | [address] [facility] | | | | | [place], [place] | [place] [address] | | | | | [address] | [phone] | | | | | [phone] | | | +--------+ + + + [...] 12/18/17 1321 by | | lyssa | cusx-rpr-itartb catheter system; | Jaye Bird, | Lucy [...] | | | | | [place] [address] | | | | | | [phone] | | | | | | | | +--------+---------+ + + + | 12/20/ | Office | Otolaryngology | Ulysses Genao MD | | | 2019 | Visit | | [address] | | | | | | [address] [place], | | | | | | [place] [address] | | | | | | [phone] | | | | | | | | +--------+---------+ + + + | 02/15/ | Office | Internal Medicine | Alanis, | | | 2019 | Visit | | MD Petrona | | | | | | [address] [place] | | | | | | [place] [address] | | | | | | [phone] | | | | | | | [...]
--- OUTSIDE RECORDS SUMMARY | ~2019-11-17 | XMS | Encounter Summary ---
Demographics + + + | Address | [address] | | | [place] [address] | + + + | Home Phone [...] Providers + +------+ + | Care Third Steel Pourer Name | Role | Phone | [...] as of this encounter Progress Notes Interface, Smoke Jumper Supervisor In - 01/12/2005 9:01 AM PDT [id number] GE[facility]ANNI [facility] Date: 05/20/2004 Clinic: Morbid [...] Surgery Chris Padgett M.D. MS / HS [id number] / [id number] / [id number] / [id number] documented i n this encounter Plan of Treatment Not on filedocumented as of this encounter Visit Diagnoses Not on filedocumented in this encounter"
--- OUTSIDE RECORDS SUMMARY | ~2019-11-17 | XMS | Encounter Summary ---
Demographics + + + | Address | [address] | | | [place] [address] | + + + | Home Phone [...] + +------+ + | Care Process Safety Specialist Name | Role | Phone | [...] + + | 03/28/ | Refill | [facility] | Alanis, | Medication Refill | | 2016 | | MEDICINE [address] [place] [address] | MD Petrona | | | | | [facility] | [address] [place] [address] | | | | | [place] [address] | [place] [address] | | | | | [phone] | [phone] | | | | | | | [...] | | | | | [place] [address] | | | | | | [phone] | | | | | | | | +--------+---------+ + + + | 12/20/ | Office | Otolaryngology | Ulysses Genao MD | | | 2019 | Visit | | [address] | | | | | | [address] [place], | | | | | | [place] [address] | | | | | | [phone] | | | | | | | | +--------+---------+ + + + | 02/15/ | Office | Internal Medicine | Alanis, | | | 2019 | Visit | | MD Petrona | | | | | | [address] [place] [address] [address] | | | | | | [place] [address] | | | | | | [phone] | | | | | | | | +--------+---------+ + + + documented as of this encounter Visit Diagnoses Not on filedocumented in this encounter"
--- OUTSIDE RECORDS SUMMARY | ~2019-11-17 | XMS | Encounter Summary ---
Demographics + + + | Address | [address] | | | [place] [address] | + + + | Home Phone [...] Other | | 2020 | | MEDICINE [address] [place] [address] | MD Petrona | | | | | [facility] | [address] [place] [address] | | | | | [place] [address] | [place] [address] | | | | | [phone] | [phone] | | | | | | | [...] | | | | | [place] [address] | | | | | | [phone] | | | | | | | | +--------+---------+ + + + | 12/20/ | Office | Otolaryngology | Ulysses Genao MD | | | 2019 | Visit | | [address] | | | | | | [address] [place], | | | | | | [place] [address] | | | | | | [phone] | | | | | | | | +--------+---------+ + + + | 02/15/ | Office | Internal Medicine | Alanis, | | | 2019 | Visit | | MD Petrona | | | | | | [address] | | | | | | [place] [address] | | | | | | [phone] | | | | | | | | +--------+---------+ + + + documented as of this encounter Visit Diagnoses Not on filedocumented in this encounter"
--- OUTSIDE RECORDS SUMMARY | ~2019-11-17 | XMS | Encounter Summary ---
Demographics + + + | Address | [address] | | | [place] [address] | + + + | Home Phone [...] Providers + +------+ + | Care Senior Solutions Workflow Consultant Name | Role | Phone | [...] as of this encounter Progress Notes Interface, Latin Dance Instructor In - 01/11/2005 11:07 PM PDT Referred [...] is being seen by an orthopedist in [place]. She brings her brace today which she states is going well. The patient, however, yesterday awoke with neck stiffness and pain with spasming type pains in the area of her neck. She was seen in the emergency room last night in [place] for injection after a migraine. She states [...] Jesus M.D. Domingo Lozoya M.D. Gokul P [id number] cc: Pedrito Gutierrez MD [address] [place], [place] [id number] signed by Interface, Latin Dance Instructor In at 5 11:07 PM PDTdocumented in this encounter Plan of Treatment Not on filedocumented as of this encounter Visit Diagnoses Not on filedocumented in this encounter"
--- OUTSIDE RECORDS SUMMARY | ~2019-11-17 | XMS | Encounter Summary ---
Demographics + + + | Address | [address] | | | [place] [address] | + + + | Home Phone [...] Providers + +------+ + | Care Motor Operator Name | Role | Phone | + +------+ + | Pedrito Gutierrez MD | PCP | | + +------+ + Encounter Details +--------+ + + + + | Date | Type | Department | Care Team | Description | +--------+ + + + + | 08/22/ | Hospital | Radiology/Imaging | | | | 2008 | Encounter | Lab at [facility] | | | | | | [address] Mailcode: | | | | | | CH3G [facility] | | | | | | Health and Healing, | | | | | | [place] [address], | | | | | | Floor [place], [place] | | | | | | [address] | | | | | | [phone] | | | +--------+ + + + [...]
--- OUTSIDE RECORDS SUMMARY | ~2019-11-17 | XMS | Encounter Summary ---
Demographics + + + | Address | [address] | | | [place] [address] | + + + | Home Phone [...] Lab findings, | | 2007 | | [place] [address] | [address] | teaching, guidance, | | | | Ave Mailcode: [facility] | [address] | and counseling (labs | | | | [facility] | [place], [place] | done on 07/01/07) | | | | and Healing, | [address] | | | | | [facility] | [phone] | | | | | [place], [place] | | | | | | [address] | | | | | | [phone] | | | +--------+ + + + [...]
--- OUTSIDE RECORDS SUMMARY | ~2019-11-17 | XMS | Encounter Summary ---
Demographics + + + | Address | [address] | | | [place] [address] | + + + | Home Phone [...] Providers + +------+ + | Care Cake Puncher Name | Role | Phone | [...] [address] | | | | | | [place], [place] | | | | | | [address] | | | | | | [phone] | | | +--------+ + + + [...]
--- OUTSIDE RECORDS SUMMARY | ~2019-11-17 | XMS | Encounter Summary ---
Demographics + + + | Address | [address] | | | [place] [address] | + + + | Home Phone [...] +------+ + | Care Ice Cream Freezer Helper Name | Role | Phone | [...] | | | | | Procedures | [place], [place] | [address] [facility] | | | | | CONSULT TO | [address] | [address] | | | | | SURGERY - | | Rd [place], | | | | | GENERAL | | [place] | | | | | | | [address] | | | | | | | Phone: | | | | | | | [phone] | | | | | | | Fax: | | | | | | | [phone] | +--------+--------+ + + + + Encounter Details +--------+ + + + + | Date | Type | Department | Care Team | Description | +--------+ + + + + | 08/31/ | Dna Sequencing Associate | Digestive Health | Nuris Cardenas ANP | Hemorrhoid (Primary | | 2008 | | Center [address] | | Dx) | | | | [address] | | | | | | Mailcode: [id number] | | | | | | [facility] | | | | | | [place], [place] | | | | | | [address] | | | | | | [phone] | | | +--------+ + + + [...]
--- OUTSIDE RECORDS SUMMARY | ~2019-11-17 | XMS | Encounter Summary ---
Demographics + + + | Address | [address] | | | [place] [address] | + + + | Home Phone [...] Team Providers + +------+ + | Care Dominatrix Name | Role | Phone | + [...] 2005 | | Bariatric [address] | [address] | Pain (Primary Dx) | | | | [address] | [address] | | | | | Mailcode: [id number] | [place], [place] | | | | | Physician[facility] | [address] | | | | | [address] [place], [place] | [phone] | | | | | [address] | | | | | | [phone] | | | +--------+ + + + [...] [facility] | [address] | [place], [place] | | | [facility] | | [address] | | + + + + + documented in this encounter Visit Diagnoses + + | Diagnosis | + + | Chronic abdominal pain - Primary Abdominal pain, unspecified site | + + documented in this encounter"
--- OUTSIDE RECORDS SUMMARY | ~2019-11-17 | XMS | Encounter Summary ---
Demographics + + + | Address | [address] | | | [place] [address] | + + + | Home Phone [...] | | 2006 | | [facility] at [employer] | MD Darrion,PhD [address] | | | | | for Health and | [address] | | | | | Healing [address] | [place], [place] | | | | | [address] Mailcode: | [id number] | | | | | [facility] | [phone] | | | | | Health and Healing, | | | | | | [facility] | | | | | | Floor [place], [place] | | | | | | [address] | | | | | | [phone] | | | +--------+ + + + [...]
--- OUTSIDE RECORDS SUMMARY | ~2019-11-17 | XMS | Encounter Summary ---
[...] Team Providers + +------+ + | Care Dance Instructor Name | Role | Phone [...] + + | 09/25/ | Telephone | [facility] | Alanis, | Other | | 2018 | | MEDICINE [address] [place] [address] | MD Petrona | | | | | [facility] | [address] [place] [address] | | | | | [place] [address] | [place] [address] | | | | | [phone] | [phone] | | | | | | | [...] | | | | | [place] [address] | | | | | | [phone] | | | | | | | | +--------+---------+ + + + | 12/20/ | Office | Otolaryngology | Ulysses Genao MD | | | 2019 | Visit | | [address] | | | | | | [address] [place], | | | | | | [place] [address] | | | | | | [phone] | | | | | | | | +--------+---------+ + + + | 02/15/ | Office | Internal Medicine | Alanis, | | | 2019 | Visit | | MD Petrona | | | | | | [address] | | | | | | [place] [address] | | | | | | [phone] | | | | | | | | +--------+---------+ + + + documented as of this encounter Visit Diagnoses + + | Diagnosis | + + | OLIVER (obstructive sleep apnea) - Primary Obstructive sleep apnea (adult) (pediatric) | + + documented in this encounter"
--- OUTSIDE RECORDS SUMMARY | ~2019-11-17 | XMS | Encounter Summary ---
Demographics + + + | Address | [address] | | | [place] [address] | + + + | Home Phone [...] Providers + +------+ + | Care Room Service Supervisor Name | Role | Phone [...]
--- OUTSIDE RECORDS SUMMARY | ~2019-11-17 | XMS | Encounter Summary ---
Demographics + + + | Address | [address] | | | [place] [address] | + + + | Home Phone [...] Providers + +------+ + | Care Landscape Artist Name | Role | Phone | [...] as of this encounter Progress Notes Interface, Speaking Unit Assembler In - 02/15/2006 2:03 AM PDT [id number] GEOVANNI BELINDA [place] [id number] Clinic Date: 01/29/2006 Clinic: Endocrinology Belinda Meehan [...] her visits to the Emergency Department in [place], she apparently had elevated "liver enzyme levels" and her blood pressure was up to 160/98. She subsequently underwent diagnostic testing that apparently included CT imaging of her abdomen and upper GI endoscopy, abdominal ultrasound, and other testing; the results of which have apparently been normal. She started going to [employer] approximately 2 weeks ago which has increased her level of physical activity. She has only occasional headaches, due in part to ongoing treatment with propanolol. She apparently was referred by Dr. Padgett to see a narcotics agent here at [facility] for further evaluation of severe recurrent [...] [facility] and pulse 60 beats per [...] evaluated recently at the Emergency Department in [place]. Her alkaline phosphatase level today is about [...] would benefit from being evaluated by a narcotics agent. According to the patient, no gastroenterologists are available in [place]. She needs to petition her primary care provider and her insurance company to give the necessary authorization to allow her to be evaluated by a narcotics agent. Plan: 1. Await results of serum 25-hydroxyvitamin [...] She needs to be seen by a narcotics agent. 5. Return to see me again in 3 months. Beto Meeks M.D. PD / HS [id number] / [id number] / [id number] / cc: Pedrito Gutierrez M.D. [address] [place] [address] Chris Padgett M.D. Electronically signed by Beto Meeks 02-14-2006 02:02:55 AM documented i n this encounter Plan of Treatment Not on filedocumented as of this encounter Visit Diagnoses Not on filedocumented in this encounter
--- OUTSIDE RECORDS SUMMARY | ~2019-11-17 | XMS | Encounter Summary ---
Demographics + + + | Address | [address] | | | [place] [address] | + + + | Home Phone [...] Team Providers + +------+ + | Care License And Permit Specialist Name | Role | Phone | [...] | | | | Clinical Nutrition | [place], [place] | | | | | [address] | [address] | | | | | Loop Mailcode: [id number] | [phone] | | | | | Outpatient Clinic | | | | | | [facility] | | | | | | [place] [address] | | | | | | [phone] | | | +--------+ + + + [...] + + + | [facility] | [address] | [place] [address] | | | LABORATORY | | | [...] + + + | [facility] | [address] | [place] [address] | | | LABORATORY | | | [...] Blood Test performed by | | | [facility]. | | + + + + + + + + | Performing | Address | City/State/Zipcode | Phone Number | | Organization | | | | + + + + + | [facility] | [address] | [place] [address] | | | LABORATORY | | | | + + + + + documented in this encounter Visit Diagnoses Not on filedocumented in this encounter"
--- OUTSIDE RECORDS SUMMARY | ~2019-11-17 | XMS | Encounter Summary ---
Demographics + + + | Address | [address] | | | [place] [address] | + + + | Home Phone [...] Providers + +------+ + | Care Facility Technician Name | Role | Phone [...] | | | [facility] | [place], [place] | | | | | [address] | [address] | | | | | [address] | [phone] | | | | | Physician's | | | | | | Pavilion, 1st floor | | | | | | [place], [place] | | | | | | [address] | | | | | | [phone] | | | +--------+ + + + [...]
--- OUTSIDE RECORDS SUMMARY | ~2019-11-17 | XMS | Encounter Summary ---
Demographics + + + | Address | [address] | | | [place] [address] | + + + | Home Phone [...] Providers + +------+ + | Care Certified Orthotist Name | Role | Phone | + [...] | | CONSULT TO | Rd | [address] | | | | | NEUROLOGY | [place], [place] | for Health | | | | | | [address] | and Healing, | | | | | | Phone: | Building [address], | | | | | | [phone] | [facility] Floor | | | | | | | [place], [place] | | | | | | | [address] | | | | | | | Phone: | | | | | | | [phone] | | | | | | | Fax: | | | | | | | [phone] | +--------+--------+ + + + + Reason [...] | | | [facility] | [place], [place] | Weak; | | | | [address] | [address] | Migraine Headache | | | | [address] | [phone] | | | | | [facility] | | | | | | Physician's | | | | | | Pavilion [place], | | | | | | [place] [address] | | | | | | [phone] | | | +--------+---------+ + + + [...] this encounter Patient Instructions Patient Instructions Edy Stepehns - 02/29/2008 1:50 PM PDTPlease take only [...] (ciprofloxacin) Tramadol Morphine IM ( only in [facility] [...] oral route once daily, Disp: , Rfl: extiuzjezt-ffybscwusbhhu-jrnferjt (FIORICET) 50-325-40 mg Oral Tablet, take 2 [...] LE edema Results for BELINDA MEEHAN Molly (ID#[id number]) as of 03/01/2008 9:22:28 PM Ref. Range [...] K/cu mm 220 Results for BELINDA MEEHAN (ID#[id number]) as of 03/01/2008 9:22:28 PM Ref. Range [...] continue to discuss with her options at [facility] with, hopefully, coordin ation of services. [...] + + | [facility] | [address] [address] | [place] [address] | | | PATHOLOGY | [address] | | | + + + + + | [place] [facility] | [address] | [place] [address] | | | PATHOLOGY | [address] [...] Performed At | + + + | [id number] Estimated GFR > 60 mL/min/1.73 sq m if non- | [facility] | | Nigerian [id number] Estimated GFR > 60 mL/min/1.73 sq m [...] + | [facility] | [address] [facility] | [place] [address] | | | PATHOLOGY | [address] | | | + + + + + | [facility] | [address] [facility] | [place] [address] | | | PATHOLOGY | [address] [...] change effective | | | 04/05/07 [facility] ([facility]) | | | [facility] [address] [address] [facility] | | | [place] [address] | | + + + + + + + + | Performing | Address | City/State/Zipcode | Phone Number | | Organization | | | | + + + + + | [facility] | [address] | [place] [address] | | | LABORATORY | | | [...] change effective | | | 04/05/07 [facility] ([facility] [address] [facility]) | | | [facility] [place] [address] [address] [facility] | | | [place] [address] | | + + + + + + + + | Performing | Address | City/State/Zipcode | Phone Number | | Organization | | | | + + + + + | [facility] | [address] | [place] [address] | | | LABORATORY | | | [...]
--- OUTSIDE RECORDS SUMMARY | ~2019-11-17 | XMS | Encounter Summary ---
Demographics + + + | Address | [address] | | | [place] [address] | + + + | Home Phone [...] Providers + +------+ + | Care Brass Reclaimer Name | Role | Phone | + [...] as of this encounter Progress Notes Interface, Engineer In - 12/09/2005 2:08 AM PDT [id number] GEOVANNI Barnes 109[address] [id number] Clinic Date: 11/26/2005 Clinic: General Surgery Clinic [...] with extensive workup. Prescription picked up at [facility] on November 25, 2005, for 50 oxycodone 5 mg. Melisa Thorne / SHARIF [id number] / [id number] / [id number] / [id number] Electronically signed by Kenisha Melton 12-05-2005 08:28:34 PM documented i n this encounter Plan of Treatment Not on filedocumented as of this encounter Visit Diagnoses Not on filedocumented in this encounter"
--- OUTSIDE RECORDS SUMMARY | ~2019-11-17 | XMS | Encounter Summary ---
Demographics + + + | Address | [address] | | | [place] [address] | + + + | Home Phone [...] Padgett, | | | 2009 | | [place] [address] | [address] [facility] | | | | | Bethanie Mailcode: CH4S | Naeem Mcrae | | | | | [facility] | [place], [place] | | | | | and Healing, | [address] | | | | | Building , 6th | [phone] | | | | | Floor [place], [place] | | | | | | [address] | | | | | | [phone] | | | +--------+ + + + [...]
--- OUTSIDE RECORDS SUMMARY | ~2019-11-17 | XMS | Encounter Summary ---
Demographics + + + | Address | [address] | | | [place] [address] | + + + | Home Phone [...] Providers + +------+ + | Care Environmental Consultant Name | Role | Phone | [...] + + | 03/02/ | Telephone | [facility] | Alanis, | Lab Results | | 2017 | | MEDICINE [address] [place] [address] | MD Petrona | | | | | [facility] | [address] [place] [address] | | | | | [place] [address] | [place] [address] | | | | | [phone] | [phone] | | | | | | | [...] | | | | | [place] [address] | | | | | | [phone] | | | | | | | | +--------+---------+ + + + | 12/20/ | Office | Otolaryngology | Ulysses Genao MD | | | 2020 | Visit | | [address] | | | | | | [address] [place], | | | | | | [place] [address] | | | | | | [phone] | | | | | | | | +--------+---------+ + + + | 02/15/ | Office | Internal Medicine | Alanis, | | | 2019 | Visit | | MD Petrona | | | | | | [address] | | | | | | [place] [address] | | | | | | [phone] | | | | | | | | +--------+---------+ + + + documented as of this encounter Visit Diagnoses Not on filedocumented in this encounter"
--- OUTSIDE RECORDS SUMMARY | ~2019-11-17 | XMS | Encounter Summary ---
Demographics + + + | Address | [address] | | | [place] [address] | + + + | Home Phone [...] + +------+ + | Care Certified Ophthalmic Technologist Name | Role | Phone | [...] [address]aeem [address]rae | | | | | [facility] | [place], [place] | | | | | and Healing, | [address] | | | | | [facility] | [phone] | | | | | Floor [place], [place] | | | | | | [address] | | | | | | [phone] | | | +--------+ + + + [...]
--- OUTSIDE RECORDS SUMMARY | ~2019-11-17 | XMS | Encounter Summary ---
Demographics + + + | Address | [address] | | | [place] [address] | + + + | Home Phone [...] Osteopenia | MD Beto | Density [facility] | | | | | Procedures | [address] | [address] | | | | | CONSULT TO | Ave | Naeem Mcrae | | | | | BONE | [place], [place] | Rd Mailcode: | | | | | DENSITOMETRY | [address] | [address] | | | | | | Phone: | Naeem De La Rosa | | | | | | [phone] | [place], [place] | | | | | | Fax: | [address] | | | | | | [phone] | Phone: | | | | | | | [phone] | | | | | | | Fax: | | | | | | | [phone] | +--------+--------+ + + + + Reason [...] | | [facility] | [facility] [place] | | | | | Pavilion [address] | [address] | | | | | [address] | [phone] | | | | | Physician[facility] Pavilion | | | | | | Physician's | | | | | | Pavilion [place], | | | | | | [place] [address] | | | | | | [phone] | | | +--------+ + + + [...]
--- OUTSIDE RECORDS SUMMARY | ~2019-11-17 | XMS | Encounter Summary ---
Demographics + + + | Address | [address] | | | [place] [address] | + + + | Home Phone [...] Team Providers + +------+ + | Care Legislative Director Name | Role | Phone | [...] Pavilion | | | | | | [place], [place] | | | | | | [address] | | | | | | [phone] | | | +--------+ + + + [...]
--- OUTSIDE RECORDS SUMMARY | ~2019-11-17 | XMS | Encounter Summary ---
Demographics + + + | Address | [address] | | | [place] [address] | + + + | Home Phone [...] Providers + +------+ + | Care Commissary Helper Name | Role | Phone | [...] of this encounter Progress Notes Interface, Business Services Clerk In - 01/11/2005 7:39 PM PDT Referred [...] 3-6 months time. She is coming from [place] so this can be scheduled on the same day of her physician visit. General surgery can schedule this. 5. Indra's business card with contact information for questions. Svetlana Maki R.D., LKyrie. SR/y39 P [phone] cc: documente d in this encounter Plan of Treatment Not on filedocumented as of this encounter Visit Diagnoses Not on filedocumented in this encounter"
--- OUTSIDE RECORDS SUMMARY | ~2019-11-17 | XMS | Encounter Summary ---
Demographics + + + | Address | [address] | | | [place] [address] | + + + | Home Phone [...] Team Providers + +------+ + | Care Ruffling Machine Operator Name | Role | Phone [...] + + | 02/18/ | Telephone | [facility] | Alanis, | Results | | 2018 | | MEDICINE [address] | MD Petrona | | | | | [facility] | [address] [facility] | | | | | [place] [address] | [place] [address] | | | | | [phone] | [phone] | | | | | | | [...] | | | | | [place] [address] | | | | | | [phone] | | | | | | | | +--------+---------+ + + + | 12/20/ | Office | Otolaryngology | Ulysses Genao MD | | | 2019 | Visit | | [address] | | | | | | [address] [place], | | | | | | [place] [address] | | | | | | [phone] | | | | | | | | +--------+---------+ + + + | 02/15/ | Office | Internal Medicine | Alanis, | | | 2019 | Visit | | MD Petrona | | | | | | [address] | | | | | | [place] [address] | | | | | | [phone] | | | | | | | | +--------+---------+ + + + documented as of this encounter Visit Diagnoses Not on filedocumented in this encounter"
--- OUTSIDE RECORDS SUMMARY | ~2019-11-17 | XMS | Encounter Summary ---
Demographics + + + | Address | [address] | | | [place] [address] | + + + | Home Phone [...] Providers + +------+ + | Care Art Coordinator Name | Role | Phone | [...] + | 01/08/ | Telephone | [facility] | Alanis, | Results, Imaging | | 2017 | | MEDICINE [address] | MD Petrona | | | | | [facility] | [address] [place] [address] | | | | | [place] [address] | [place] [address] | | | | | [phone] | [phone] | | | | | | | [...] | | | | | [place] [address] | | | | | | [phone] | | | | | | | | +--------+---------+ + + + | 12/20/ | Office | Otolaryngology | Ulysses Genao MD | | | 2019 | Visit | | [address] | | | | | | [address] [place], | | | | | | [place] [address] | | | | | | [phone] | | | | | | | | +--------+---------+ + + + | 02/15/ | Office | Internal Medicine | Alanis, | | | 2019 | Visit | | MD Petrona | | | | | | [address] [place] [address] [address] | | | | | | [place] [address] | | | | | | [phone] | | | | | | | | +--------+---------+ + + + documented as of this encounter Visit Diagnoses Not on filedocumented in this encounter"
--- OUTSIDE RECORDS SUMMARY | ~2019-11-17 | XMS | Encounter Summary ---
Demographics + + + | Address | [address] | | | [place] [address] | + + + | Home Phone [...] Providers + +------+ + | Care Stock Roller Name | Role | Phone | [...] | | | | | abdominal | [place] | [address] [facility] | | | | | pain | Health & | [facility] | | | | | Procedures | Science | Rd [place], | | | | | REQUEST TO | University | [place] | | | | | SURGERY | [address] [facility] | [address] | | | | | MUSIC TYPOGRAPHER | Naeem Mcrae | Phone: | | | | | [place] | Rd | [phone] | | | | | EXPLORATORY | [place], [place] | Fax: | | | | | OF ABDOMEN | [address] | [phone] | | | | | [place] FREE[place] [...] | | | | | | [place], | | | | | | | [place] | | | | | | | [address] | | | | | | | Phone: | | | | | | | [phone] | | | | | | | Fax: | | | | | | | [phone] | +--------+--------+ + + + + Encounter [...] | | | [facility] | [place], [place] | | | | | and Healing, | [address] | | | | | Building 1, 6th | [phone] | | | | | Floor [place], [place] | | | | | | [address] | | | | | | [phone] | | | +--------+---------+ + + + [...] the resident s note. CHRIS RUANO MD [facility] [address] [facility], 6th [place] [address] Chris Peralta - 10:55 AM [...] not work at this time. Lives in [place], [place] FH: Noncontributory ROS: No recent fevers, [...] | + + + + + | [facility] | [address] | [place] [address] | | | PATHOLOGY | [address] | | | + + + + + | [facility] | [address] | [place] [address] | | | PATHOLOGY | [address] [...]
--- OUTSIDE RECORDS SUMMARY | ~2019-11-17 | XMS | Encounter Summary ---
Demographics + + + | Address | [address] | | | [place] [address] | + + + | Home Phone [...] Providers + +------+ + | Care Ornamental Rail Installer Name | Role | Phone | [...] + + | 11/17/ | Office | [facility] | Alanis, | Bilateral leg edema | | 2018 | Visit | MEDICINE [address] [place] [address] | MD Petrona | (Primary Dx); Venous | | | | Street [address] | [address] [facility] | insufficiency; | | | | [place] [address] | [place] [address] | Fatigue, unspecified | | | | [phone] | [phone] | type | | | | | [...] (See Comments) Confused and questionable for seizures Xhzpfeytdj-Tqkz-Zdamtwlm Cephalexin Hives Duloxetine Migraines and nausea Ketorolac Hives Morphine Swelling Ropinirole Hcl Hives Tramadol Hcl Nausea Only Rrhrkprjuv-Rajt-Eqbawoza Hives and Rash Ciprofloxacin Hives and Rash [...] Note: Parts of this documentwere created using [employer] speech recognition software. As a r esult, [...] | | | | | [place] [address] | | | | | | [phone] | | | | | | | | +--------+---------+ + + + | 12/20/ | Office | Otolaryngology | Ulysses Genao MD | | | 2019 | Visit | | [address] | | | | | | [address] [place], | | | | | | [place] [address] | | | | | | [phone] | | | | | | | | +--------+---------+ + + + | 02/15/ | Office | Internal Medicine | Alanis, | | | 2020 | Visit | | MD Petrona | | | | | | [address] [place] [address] [address] | | | | | | [place] [address] | | | | | | [phone] | | | | | | | [...] [address] | [place] | [phone] | | [facility] | | [address] | | | - LABORATORY | | [...] [address] | [place] | [phone] | | [facility] | | [address] | | | - LABORATORY | | [...] | third generation TSH | uIU/mL | [facility] | | | | test. | [...] + | [address] [facility] | [address] | [place] | [phone] | | [facility] | | [address] | | | - LABORATORY | | [...] | 0.72 | 0.60 - 1.30 | OXBOW | | | | | mg/dL | [facility] | | | | | | MEDICAL | | | | | | CENTER - | | | | | | LABORATORY | | + + + + + + | eGFR if not | >60Comment: GLOMERULAR | >=60 | [facility]XBOW | | | | FILTRATION | mL/min/1.73m2 | Y[facility]y [facility] | | | ESTONIAN | RATE,ESTIMATED | | MEDICAL | | | | mL/min/1.73l0Nzqr than | | CENTER - | | [...] [address] | [place] | [phone] | | [facility] | | [address] | | | - LABORATORY | | [...] ST. | [address] | [place] | [phone] | | [facility] | | [address] | | | - LABORATORY | | [...]
--- OUTSIDE RECORDS SUMMARY | ~2019-11-17 | XMS | Encounter Summary ---
Demographics + + + | Address | [address] | | | [place] [address] | + + + | Home Phone [...] Providers + +------+ + | Care Data Recovery Planner Name | Role | Phone | [...] | | | | | | | [place], [place] | | | | | | | [address] | | | | | | | Phone: | | | | | | | [phone] | | | | | | | Fax: | | | | | | | [phone] | +--------+--------+ + + + + Encounter Details +--------+---------+ + + + | Date | Type | Department | Care Team | Description | +--------+---------+ + + + | 01/05/ | Office | Digestive Health | Eliezer Ruano, | Follow-Up | | 2007 | Visit | Center [address] | [address] [facility] | Examination | | | | Avjennifer Mailcode: CH4S | [address] | Following Surgery | | | | [facility] | [place], [place] | (Primary Dx) | | | | and Healing, | [address] | | | | | Building | [phone] | | | | | Floor [place], [place] | | | | | | [address] | | | | | | [phone] | | | +--------+---------+ + + + [...] and plan of care. ELIEZER RUANO MD [facility]ENTER [address] [place] [address] And [facility], [address] [place] [address] Tejas Trevino - 01/05 1:54 PM PDTS: Pt is here one week postop lysis of adhesions. She is doing well. She i s still having some pain. PE: Midline incision closed with reshma. Pelican removed. There was a small opening of [...]
--- OUTSIDE RECORDS SUMMARY | ~2019-11-17 | XMS | Encounter Summary ---
Demographics + + + | Address | [address] | | | [place] [address] | + + + | Home Phone [...] Team Providers + +------+ + | Care Warper Fixer Name | Role | Phone | [...] Rd | Urologist) | | | | [facility] | [place], [place] | | | | | and [place], | [address] | | | | | [facility] | [phone] | | | | | [place], [place] | | | | | | [address] | | | | | | [phone] | | | +--------+ + + + [...]
--- OUTSIDE RECORDS SUMMARY | ~2019-11-17 | XMS | Encounter Summary ---
Demographics + + + | Address | [address] | | | [place] [address] | + + + | Home Phone [...] Team Providers + +------+ + | Care Shipbuilding Draftsperson Name | Role | Phone | [...] | | | | Clinical Nutrition | [place], [place] | | | | | [address] | [address] | | | | | Loop Mailcode: OPC5 | [phone] | | | | | Outpatient Clinic | | | | | | [facility] | | | | | | [place] [address] | | | | | | [phone] | | | +--------+ + + + [...] + + | [facility] | [address] | [place] [address] | | | PATHOLOGY | [address] | | | + + + + + | [facility] | [facility] | [place] [address] | | | PATHOLOGY | [address] | | | + + + + + documented in this encounter Visit Diagnoses Not on filedocumented in this encounter"
--- OUTSIDE RECORDS SUMMARY | ~2019-11-17 | XMS | Encounter Summary ---
Demographics + + + | Address | [address] | | | [place] [address] | + + + | Home Phone [...] Providers + +------+ + | Care Regulatory Consultant Name | Role | Phone | [...] | | | | sciatica | [place] [address] | | | | | | S/P lumbar | Phone: | | | | | | fusion | [phone] | | | | | | Sacroiliac | Fax: | | | | | | inflammation | [phone] | | | | | | (HCC) [...] | | | | sciatica | [place] [address] | [address] | | | | | S/P lumbar | Phone: | Phone: | | | | | fusion | [phone] | [phone] | | | | | Sacroiliac | Fax: | Fax: | | | | | inflammation | [phone] | [phone] | | | | | ([facility]) | | | | | | [...] | | sciatica | [address] | [address] Phone: | | | | | | [place], | [phone] | | | | | | [place] | Fax: | | | | | | [address] | [phone] | | | | | | Phone: | | | | | | | [phone] | | | | | | | Fax: | | | | | | | [phone] | | +--------+ + + + + + Encounter Details +--------+---------+ + + + | Date | Type | Department | Care Team | Description | +--------+---------+ + + + | 09/23/ | Office | [facility] | Lencho Rivas, | Sacroiliac | | 2019 | Visit | PHYSIATRY [address] | PA-C [address] | inflammation (HCC) | | | | [address] | [address] [place] | (Primary Dx); Acute | | | | [place] [address] | [place] [address] | midline low back | | | | [address] | [phone] | pain with bilateral | | | | [phone] | | sciatica; S/P lumbar | | [...] 9:20 AM PDTReferral to michelle james ([facility]). Referral to massage therapy. Due to severity [...] press against a nerve. Date Last Reviewed: 08/13/201719992803-5219 [employer]. [address] [place] [address]. All [facility] ts reserved. This information is not intended as a substitute for professional medical care. Always follow your healthcare professional's instructions. documented in this encounter Progress Notes Lencho Rivas PA-C - 09/23/2018 9:20 AM PDTFormatting of this note might be different fro m the original. Lencho Rivas PA-C [address] [place] [address], [address] [place] [address] FAX: CHIEF COMPLAINT: Chief Complaint Patient presents [...] Location: [facility] MEDICAL PROCEDURE [facility] CURRENT MEDICATIONS: Current [...] (See Comments) Confused and questionable for seizures Bsnbviltqc-Buek-Kbduovul Hives and Rash Cephalexin Hives Ciprofloxacin Hives [...] no apparent deficits with short or termite exterminator helper memory. Cranial nerves 2-12 appear grossly [...] currently enrolled in a pain clinic in [place], [place]. 5) Patient will follow up with [...] | | | | | [place] [address] | | | | | | [phone] | | | | | | | | +--------+---------+ + + + | 12/20/ | Office | Otolaryngology | Ulysses Genao MD | | | 2019 | Visit | | [address] [place] | | | | | | [address] [place], | | | | | | [place] [address] | | | | | | [phone] | | | | | | | | +--------+---------+ + + + | 02/15/ | Office | Internal Medicine | Alanis, | | | 2019 | Visit | | MD Petrona | | | | | | [address] [place] | | | | | | [place] [address] | | | | | | [phone] | | | | | | | [...]
--- OUTSIDE RECORDS SUMMARY | ~2019-11-17 | XMS | Encounter Summary ---
Demographics + + + | Address | [address] | | | [place] [address] | + + + | Home Phone [...] Providers + +------+ + | Care Fish Drier Name | Role | Phone | + +------+ + | Sulaiman Carrera MD | PCP | | + +------+ + Encounter Details +--------+ + + + + | Date | Type | Department | Care Team | Description | +--------+ + + + + | 06/12/ | Telephone | Digestive Health | Chris [place]gett, | | | 2008 | | [place] [address] | [address] [facility] | | | | | [place] Mailcode: CH4S | [address] | | | | | Center for Health | [place], [place] | | | | | and Healing, | [address] | | | | | [facility] 1, 6th | [phone] | | | | | Floor [place], [place] | | | | | | [address] | | | | | | [phone] | | | +--------+ + + + [...]
--- OUTSIDE RECORDS SUMMARY | ~2019-11-17 | XMS | Encounter Summary ---
Demographics + + + | Address | [address] | | | [place] [address] | + + + | Home Phone [...] Providers + +------+ + | Care Automotive Service Technician Name | Role | Phone [...] | Procedures | [address] | [place] | | | | | CONSULT TO | [address] | [address] | | | | | GI PROCEDURE | Rd | floor | | | | | UNIT: EGD | [place], [place] | [place], [place] | | | | | | [address] | [address] | | | | | | Phone: | Phone: | | | | | | [phone] | [phone] | | | | | | | Fax: | | | | | | | [phone] | +--------+--------+ + + + + Consultation [...] | | | | | UNIT: | [place] | [place] | | | | | COLONOSCOPY | [address] | [address] | | | | | | Phone: | Phone: | | | | | | [phone] | [phone] | | | | | | | Fax: | | | | | | | [phone] | +--------+--------+ + + + + Reason [...] + + | 03/10/ | Office | [facility] Division of | Carlos Arreola, | Chronic Abdominal | | 2005 | Visit | Gastroenterology/Hep | MD [address] | Pain; Iron | | | | atology [address] | [address] | Deficiency | | | | [address] | [place] [address] | | | | | Mailcode: PV310 | [phone] | | | | | Physician's Pavilion | | | | | | [address] | | | | | | [place], [place] | | | | | | [address] | | | | | | [phone] | | | +--------+---------+ + + + [...] so by calling and asking for my clinical education assistant Cierra Alexis. I always do my [...] other questions or issues. Carlos Arreola MD. [facility] Division Of Gastroenterology/Hepatology [address] [place] [address] [place] [address] documented in this encounter Progress Anup Plascencia [...] prior heavy use 20 -25yrs ago ('tended plater barrel then'). Lost 200lbs psot bypass surgery, has [...] [facility] | [address] | [place] [address] | | | PATHOLOGY | [address] | | | + + + + + | [facility] | [address] | [place] [address] | | | PATHOLOGY | [address] [...] | [facility] | [address] [facility] | [place] [address] | | | PATHOLOGY | [address] | | | + + + + + | [facility] | [address] [facility] | [place] [address] | | | PATHOLOGY | [address] [...] | [facility] DEPARTMENT OF | [address] | [place] [address] | | | PATHOLOGY | [address] | | | + + + + + | [facility] | [facility] [address] | [place] [address] | | | PATHOLOGY | [address] [...] DEPARTMENT OF | [address] | [place] [address] | | | PATHOLOGY | [address] | | | + + + + + | [facility] | [address] | [place] [address] | | | PATHOLOGY | [address] [...] | | | | | [facility]. | | | | + + + + + + + + | Specimen | + + | | + + + + + + + | Performing | Address | City/State/Zipcode | Phone Number | | Organization | | | | + + + + + | [facility] | [address] | [place] [address] | | | LABORATORY | | | [...] | | | | | performed at [place] | | | | | | [facility] | | | | | | Laboratory | | | | + + + + + + + + | Specimen | + + | | + + + + + + + | Performing | Address | City/State/Zipcode | Phone Number | | Organization | | | | + + + + + | [facility] | [address] | [place] [address] | | | LABORATORY | | | | + + + + + documented in this encounter Visit Diagnoses + + | Diagnosis | + + | Chronic abdominal pain Abdominal pain, unspecified site | + + | Iron deficiency Other disorders of iron metabolism | + + documented in this encounter"
--- OUTSIDE RECORDS SUMMARY | ~2019-11-17 | XMS | Encounter Summary ---
Demographics + + + | Address | [address] | | | [place] [address] | + + + | Home Phone [...] Providers + +------+ + | Care Terrazzo Supervisor Name | Role | Phone | [...] + | 10/11/ | Refill | [facility] | Alanis, | Medication Refill | | 2019 | | MEDICINE [address] | MD Petrona | | | | | [facility] | [address] [place] [address] | | | | | [place] [address] | [place] [address] | | | | | [phone] | [phone] | | | | | | | [...] | | | | | [place] [address] | | | | | | [phone] | | | | | | | | +--------+---------+ + + + | 12/20/ | Office | Otolaryngology | Ulysses Genao MD | | | 2019 | Visit | | [address] [place] | | | | | | [address] [place], | | | | | | [place] [address] | | | | | | [phone] | | | | | | | | +--------+---------+ + + + | 02/15/ | Office | Internal Medicine | Alanis, | | | 2019 | Visit | | [place] | | | | | | [address] [place] [address] [address] [place] | | | | | | [place] [address] | | | | | | [phone] | | | | | | | | +--------+---------+ + + + documented as of this encounter Visit Diagnoses Not on filedocumented in this encounter"
--- OUTSIDE RECORDS SUMMARY | ~2019-11-17 | XMS | Encounter Summary ---
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 2. May continue with Northbrook NTE 4 per day as prescribed 3. [...] seen Dr. Morales in orth opedics at [facility], she reports that surgery is [...] swelling has resolved. Belinda has been using Northbrook 10/325 an average of 5 tablets per day. 1 tablet has an effecti ve duration of 5 hours "pain breaks through at about 4 hours", she reports taking a Northbrook ev eduardo 5 hours. She denies any [...] Collection Time Resulting Agency 07/30/2006 4:00 PM [facility] DEPARTMENT OF PATHOLOGY Component Results [...] previous 6 days. 2. May continue with Northbrook NTE 4 per day as prescribed 3. Continue with PT and Psychology as scheduled. 4. Continue with Trileptal 150mg 1 1/2 tablet twice a day 5. Follow up to review medications on 09/09/06 and call with any concerns or questions. DELFINA MOLINA [facility] Mail code CH [facility]P [place] [facility] and [address] [address] iAlyn Foster - 08/27/19 9:09 AM PDTCMA History: [...] medication refills today? yes documented in [facility] Plan of Treatment Not on filedocumented [...]
--- OUTSIDE RECORDS SUMMARY | ~2019-11-17 | XMS | Encounter Summary ---
Demographics + + + | Address | [address] | | | [place] [address] | + + + | Home Phone [...] Providers + +------+ + | Care Accounts Administrator Name | Role | Phone | [...] | Transcriptions | + + | Interface, Lead Person In - 08/06/2005 2:06 AM PST | | [id number] | | [id number] GEOVANNI Barnes | | | | Date: 07/25/2005 | | | | Attending Surgeon: Chris Padgett M.D. | | | | Auto Repair Shop Manager(s): Bandar Langley M.D. | | | | [...] | | DT / HS | | [id number] / [id number] / [id number] / [id number] | | | | | | | | | | | | Electronically signed by Chris Padgett 08-05-2005 12:36:41 PM | + + documented in this encounter Visit Diagnoses Not on filedocumented in this encounter"
--- OUTSIDE RECORDS SUMMARY | ~2019-11-17 | XMS | Encounter Summary ---
Demographics + + + | Address | [address] | | | [place] [address] | + + + | Home Phone [...] + +------+ + | Care Application Security Engineer Name | Role | Phone | [...] | | | | Avjennifer Mailcode: [facility] | [address] | wants to get back on | | | | [facility] | [place], [place] | vitamins) | | | | and Healing, | [address] | | | | | [place] [address] [facility] | [phone] | | | | | Floor [place], [place] | | | | | | [address] | | | | | | [phone] | | | +--------+ + + + [...]
--- OUTSIDE RECORDS SUMMARY | ~2019-11-17 | XMS | Encounter Summary ---
Demographics + + + | Address | [address] | | | [place] [address] | + + + | Home Phone [...] Team Providers + +------+ + | Care Saloonkeeper Name | Role | Phone | + +------+ + | Petrona Thapa | PCP | | | MD | | | + +------+ + Encounter Details +--------+ + + + + | Date | Type | Department | Care Team | Description | +--------+ + + + + | 09/22/ | [facility] | [facility] | Alanis, | Impingement syndrome | | 2018 | Encounter | [facility] | MD Petrona | of right shoulder | | | | [address] [place] | [address] [facility] | | | | | [place], [place] | [place] [address] | | | | | [address] | [phone] | | | | | [phone] | | | +--------+ + + + [...] | | | | | [place] [address] | | | | | | [phone] | | | | | | | | +--------+---------+ + + + | 12/20/ | Office | Otolaryngology | Ulysses Genao MD | | | 2019 | Visit | | [address] [place] | | | | | | [address] [place], | | | | | | [place] [address] | | | | | | [phone] | | | | | | | | +--------+---------+ + + + | 02/15/ | Office | Internal Medicine | Alanis, | | | 2019 | Visit | | MD Petrona | | | | | | [address] [place] | | | | | | [place] [address] | | | | | | [phone] | | | | | | | [...] AC | | joint.Dictated and Signed by: Sartah Avila MD Electronically signed: 09/22/2017 10:37 AM [...]
--- OUTSIDE RECORDS SUMMARY | ~2019-11-17 | XMS | Encounter Summary ---
Demographics + + + | Address | [address] | | | [place] [address] | + + + | Home Phone [...] Rd | | | | | | [place], [place] | | | | | | [address] | | | +--------+ + + + [...]
--- OUTSIDE RECORDS SUMMARY | ~2019-11-17 | XMS | Encounter Summary ---
Demographics + + + | Address | [address] | | | [place] [address] | + + + | Home Phone [...] + +------+ + | Care Senior Software Systems Engineer Name | Role | Phone [...] | | | | [id number]'s | [place], [place] | | | | | [address] | [address] | | | | | [place], [place] | [phone] | | | | | [address] | | | | | | [phone] | | | +--------+ + + + [...] + + + | [facility] | [address] | [place] [address] | | | LABORATORY | | | [...] DEPARTMENT OF | [address] | [place] [address] | | | PATHOLOGY | [address] | | | + + + + + | [facility] | [address] | [place] [address] | | | PATHOLOGY | [address] | | | + + + + + documented in this encounter Visit Diagnoses Not on filedocumented in this encounter"
--- OUTSIDE RECORDS SUMMARY | ~2019-11-17 | XMS | Encounter Summary ---
Demographics + + + | Address | [address] | | | [place] [address] | + + + | Home Phone [...] + + | 09/04/ | Telephone | [facility] | Alanis, | Appointment Question | | 2019 | | MEDICINE [address] [place] [address] | MD Petrona | | | | | [facility] | [address] [place] [address] | | | | | [place] [address] | [place] [address] | | | | | [phone] | [phone] | | | | | | | [...] | | | | | [place] [address] | | | | | | [phone] | | | | | | | | +--------+---------+ + + + | 12/20/ | Office | Otolaryngology | Ulysses Genao MD | | | 2019 | Visit | | [address] [place] | | | | | | [address] [place], | | | | | | [place] [address] | | | | | | [phone] | | | | | | | | +--------+---------+ + + + | 02/15/ | Office | Internal Medicine | Alanis, | | | 2019 | Visit | | MD Petrona | | | | | | [address] | | | | | | [place] [address] | | | | | | [phone] | | | | | | | | +--------+---------+ + + + documented as of this encounter Visit Diagnoses Not on filedocumented in this encounter"
--- OUTSIDE RECORDS SUMMARY | ~2019-11-17 | XMS | Encounter Summary ---
Demographics + + + | Address | [address] | | | [place] [address] | + + + | Home Phone [...] [address] | | | | | | [place], [place] | | | | | | [address] | | | | | | [phone] | | | +--------+ + + + [...]
--- OUTSIDE RECORDS SUMMARY | ~2019-11-17 | XMS | Encounter Summary ---
Demographics + + + | Address | [address] | | | [place] [address] | + + + | Home Phone [...] Team Providers + +------+ + | Care Presser Machine Name | Role | Phone | [...] + | 11/20/ | Refill | [facility] | Alanis, | Medication Refill | | 2017 | | MEDICINE [address] [place] [address] | MD Petrona | | | | | [facility] | [address] [place] [address] | | | | | [place] [address] | [place] [address] | | | | | [phone] | [phone] | | | | | | | [...] | | | | | [place] [address] | | | | | | [phone] | | | | | | | | +--------+---------+ + + + | 12/20/ | Office | Otolaryngology | Ulysses Genao MD | | | 2019 | Visit | | [address] [place] | | | | | | [address] [place], | | | | | | [place] [address] | | | | | | [phone] | | | | | | | | +--------+---------+ + + + | 02/15/ | Office | Internal Medicine | Alanis, | | | 2019 | Visit | | MD Petrona | | | | | | [address] [place] [address] [place] [address] | | | | | | [place] [address] | | | | | | [phone] | | | | | | | | +--------+---------+ + + + documented as of this encounter Visit Diagnoses Not on filedocumented in this encounter"
--- OUTSIDE RECORDS SUMMARY | ~2019-11-17 | XMS | Encounter Summary ---
Demographics + + + | Address | [address] | | | [place] [address] | + + + | Home Phone [...] Providers + +------+ + | Care Hospital Cook Name | Role | Phone | [...] as of this encounter Progress Notes Interface, Surface Supervisor In - 01/12/2006 1:16 AM PDTCLINIC DATE: 05/24/2002 [facility] CARE PROVIDER: Pedrito Gutierrez M.D., [place], [place]. REFERRING PROVIDER : Issac Meeks M.D., [facility] Endocrinology. REASON FOR CONSULTATION: Dr. Meeks recently [...] has some mild associated weakness in her pmo manager. She was told she had carpal tunnel [...] use drugs. 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 She is applying for disability compensation. She lives in [facility] and is currently undergoing a [...] position sense throughout. Coordination: Fine finger movements, aiptan-da-rimr, rapid alternating movements, and luag-ey-lvea maneuvers are intact though jjgiui-am-fmmc is limited by poor depth perception due [...] Pete M.D. Neurology/Neuromuscular Fellow [employer] / HS [id number] / [id number] / [id number] / cc: Issac Meeks M.D. [facility] Endocrinology Pedrito Gutierrez M.D. [address] [place] [id number] signed by Interface, Surface Supervisor In at 01/12/2006 1:1 6 AM PDTdocumented in this encounter Plan of Treatment Not on filedocumented as of this encounter Visit Diagnoses Not on filedocumented in this encounter
--- OUTSIDE RECORDS SUMMARY | ~2019-11-17 | XMS | Encounter Summary ---
Demographics + + + | Address | [address] | | | [place] [address] | + + + | Home Phone [...] Providers + +------+ + | Care Canvas Goods Fabricator Name | Role | Phone | [...] [address] | | | | | | [facility] | | | | | | [place], [place] | | | | | | [address] | | | | | | [phone] | | | +--------+ + + + [...]
--- OUTSIDE RECORDS SUMMARY | ~2019-11-17 | XMS | Encounter Summary ---
Demographics + + + | Address | [address] | | | [place] [address] | + + + | Home Phone [...] Team Providers + +------+ + | Care Magento Web Developer Name | Role | Phone [...] | Management | Chronic | Taqueria Strong, DIRECTOR OF STRATEGIC PROGRAMS | Rosi Armijo, ANP | | | | | neck pain | [address] | [address] | | | | | Low back | [place] | [address] | | | | | pain | [place] | [place], [place] | | | | | | [address] | [address] | | | | | | Phone: | | | | | | | [phone] | | | | | | | Fax: | | | | | | | [phone] | | +--------+--------+ + + + + Encounter Details +--------+---------+ + + + | Date | Type | Department | Care Team | Description | +--------+---------+ + + + | 08/09/ | Office | [facility] Comprehensive | Rosi Anotnio, | Fibromyalgia | | 2013 | Visit | Pain Center at | ANP | syndrome 729.1 | | | | [facility] | | (Primary Dx); Major | | | | [address] | | depressive disorder, | | | | Mailcode: CH15P | | recurrent episode, | | | | [facility] | | moderate ([facility]); | | | | and Healing, | | Adjustment disorder | | | | Building | | with anxiety; LBP | | | | Floor [place], [place] | | (low back pain); | | | | [address] | | Osteopenia; Chronic | | | | [phone] | | Bilateral Shoulder | | | [...] al. Diabetes Care. 28(1):89-94, 2004; Anca M, [facility]. [address] 1:25-30; discussion 45-6, [...] might be different fro m the original. [facility] Comprehensive Pain Center Return [...] never going to her local hospital in [place] for any medical evaluations. Belinda is very [...] and a pain drawing which I reviewed. [facility] Brief Pain Inventory: (ten= worst possible [...] regions, she notes pain in her right church, bilateral shoul crista muscles, left elbow, entire [...] right knee Lumbar fusion 05/2008, ' & L5-W0wnqgsu with bone spur removals Appendectomy Cholecystectomy section [...] Hives Mainly in the legs Clindamycin Codeine Gqgjpeq-Dxcnstlqux-Ckn-Caff Balance problems Fioricet W/Codeine (Vqygqlghfj-Swxfcglgpq-Bxl-Cod) Keflex (Cephalexin) Morphine IM ( only in [facility]) made gut pain worse 08/27/06: Trial of oral MSIR caused leg swelling Penicillins Sulfa (Sulfonamide Antibiotics) Tramadol Ms. Meehan reports no side effects. The Review of Systems provided by Ms. Meehan and documented by the [facility] was reviewed. This data was entered [...] al. Diabetes Care. 28(1):89-94, 2004; Anca M, [facility]. [address] 1:25-30; discussion 45-6, [...] of which more than 50% was spent meigc-ij-wrue in r eviewing pain questionnaire, medical record, [...] | | + +---------+ + + | [facility] DEPARTMENT OF | | | [...]
--- OUTSIDE RECORDS SUMMARY | ~2019-11-17 | XMS | Encounter Summary ---
Demographics + + + | Address | [address] | | | [place] [address] | + + + | Home Phone [...] | | | | CONSULT TO | [place], [place] | Rd Mailcode: | | | | | BONE | [address] | [address] | | | | | DENSITOMETRY | Phone: | [address] | | | | | | [phone] | [place], [place] | | | | | | Fax: | [address] | | | | | | [phone] | Phone: | | | | | | | [phone] | | | | | | | Fax: | | | | | | | [phone] | +--------+--------+ + + + + Encounter Details +--------+---------+ + + + | Date | Type | Department | Care Team | Description | +--------+---------+ + + + | 08/23/ | Office | Endocrinology, | Sjh, Bmd Dexa | Other Osteoporosis | | 2007 | Visit | Diabetes and | [address] | (Primary Dx); | | | | Clinical Nutrition | [facility], | Symptomatic | | | | [address] | [place] [address] | Menopausal or Female | | | | [facility] Mailcode: | | Climacteric States; | | | | [address] | | Disorder of Bone | | | | [facility], [place] | | and Cartilage, | | | | [address] | | Unspecified | | | | [phone] | | | +--------+---------+ + + + [...]
--- OUTSIDE RECORDS SUMMARY | ~2019-11-17 | XMS | Encounter Summary ---
Demographics + + + | Address | [address] | | | [place] [address] | + + + | Home Phone [...] Providers + +------+ + | Care Nail Maker Name | Role | Phone | [...]
--- OUTSIDE RECORDS SUMMARY | ~2019-11-17 | XMS | Encounter Summary ---
Demographics + + + | Address | [address] | | | [place] [address] | + + + | Home Phone [...] + +------+ + | Care Entry Level Name | Role | Phone | + [...] | | | Metabolism | bypass | [address] | [address] | | | | | Hypovitamino | [address] | Ave | | | | | sis D [address] | [address] | [place], [place] | | | | | nutritional | [place], [place] | [address] | | | | | deficiency | [address] | Phone: | | | | | Other | Phone: | [phone] | | | | | protein-jose manuel | [phone] | Fax: | | | | | nick | Fax: | [phone] | | | | | malnutrition | [phone] | | | | | | Weight | | | | | | | gain | | | | | | | Procedures | | | | | | | CONSULT TO | | | | | | | ENDO | | | | | | | [address] | | | | | | | [address] | | | +--------+--------+ + + + [...] | | | | | | | [place], [place] | | | | | | | [address] | | | | | | | Phone: | | | | | | | [phone] | | | | | | | Fax: | | | | | | | [phone] | +--------+--------+ + + + + Encounter Details +--------+---------+ + + + | Date | Type | Department | Care Team | Description | +--------+---------+ + + + | 09/23/ | Office | Digestive Health | Patricia Banegas, | H/O gastric bypass | | 2013 | Visit | Center at [address] | [facility] [address] | (Primary Dx); | | | | [address] | [facility] [address] | Hypovitaminosis D; | | | | Mailcode: Center | [place], [place] | B12 nutritional | | | | for Health and | [address] | deficiency; Other | | | | Healing, Building 2 | [phone] | protein-calorie | | | | [facility] [place] | | malnutrition; Weight | | | | [address] | | gain; Teeth decayed | | | | [phone] | | | +--------+---------+ + + + [...] make an appt with me Calories approx. 4246-4660 per day when 3 mos or more out from surgery to maintain weight l oss. Calories may need to be adjusted up for individual needs. I recommend eating 5-6 times per day. [employer] Protein 60-100+ gms per day Water: 64 oz per day, your urine should be light yellow. Please let up know if you would like a referral to see the Boilermaker Mechanic. I would be happy to put in referrals to [facility], medical membership is $198 for 3 mos. If you are 12 mos or more out from surgery and would like referral for excess skin removal please let us know. Call us if you have any questions or concerns, or send [facility] message for non-urgent issue s. Patricia Banegas RN, [facility] Nurse Practitioner for Bariatric Surgery [facility] | [address] | [place], [place] | [address] | documented in this encounter Progress Notes [...] Hives Mainly in the legs Clindamycin Codeine Izhggda-Putzjczwls-Skj-Caff Balance problems Fioricet W/Codeine (Fjffmmrsfw-Blzvpqzoep-Ixu-Cod) Keflex (Cephalexin) Morphine IM ( only in [facility]) made gut pain worse 08/27/06: Trial [...] replacement 08/2007 right knee Lumbar fusion 05/2008 L5-F7ydyoed with bone spur removals Appendectomy Cholecystectomy section [...] to POC and will call or send [employer] message if any issues. Start time 1325, end time 1353. I spent a total of 28 minutes face to face with this patie nt. Over 50% of visit was in counseling. ~ 2 Minutes of additional time spent reviewing chart prior to visit and documenting after t his visit. Patricia Banegas RN, [facility]- Nurse Practitioner for Bariatric Surgery [facility] | [address] | [place], [place] | [address] | documented in this e ncounter Plan [...]
--- OUTSIDE RECORDS SUMMARY | ~2019-11-17 | XMS | Encounter Summary ---
Demographics + + + | Address | [address] | | | [place] [address] | + + + | Home Phone [...] Team Providers + +------+ + | Care Emblem Fuser Tender Name | Role | Phone [...] + + | 05/26/ | Telephone | [facility] | Alanis, | Diarrhea | | 2018 | | MEDICINE [address] [place] [address] | MD Petrona | | | | | [facility] | [address] [place] [address] | | | | | [place] [address] | [place] [address] | | | | | [phone] | [phone] | | | | | | | [...] | | | | | [place] [address] | | | | | | [phone] | | | | | | | | +--------+---------+ + + + | 12/20/ | Office | Otolaryngology | Ulysses Genao MD | | | 2019 | Visit | | [address] | | | | | | [address] [place], | | | | | | [place] [address] | | | | | | [phone] | | | | | | | | +--------+---------+ + + + | 02/15/ | Office | Internal Medicine | Alanis, | | | 2019 | Visit | | MD Petrona | | | | | | [address] [place] | | | | | | [place] [address] | | | | | | [phone] | | | | | | | | +--------+---------+ + + + documented as of this encounter Visit Diagnoses Not on filedocumented in this encounter"
--- OUTSIDE RECORDS SUMMARY | ~2019-11-17 | XMS | Encounter Summary ---
Demographics + + + | Address | [address] | | | [place] [address] | + + + | Home Phone [...] Team Providers + +------+ + | Care Percussion Instructor Name | Role | Phone | [...] + + | 05/04/ | Refill | [facility] | Alanis, | Medication Refill | | 2017 | | MEDICINE [address] [place] [address] | MD Petrona | | | | | [facility] | [address] [place] [address] | | | | | [place] [address] | [place] [address] | | | | | [phone] | [phone] | | | | | | | [...] | | | | | [place] [address] | | | | | | [phone] | | | | | | | | +--------+---------+ + + + | 12/20/ | Office | Otolaryngology | Ulysses Genao MD | | | 2019 | Visit | | [address] | | | | | | [address] [place], | | | | | | [place] [address] | | | | | | [phone] | | | | | | | | +--------+---------+ + + + | 02/15/ | Office | Internal Medicine | Alanis, | | | 2019 | Visit | | MD Petrona | | | | | | [address] [place] [address] [address] | | | | | | [place] [address] | | | | | | [phone] | | | | | | | | +--------+---------+ + + + documented as of this encounter Visit Diagnoses Not on filedocumented in this encounter"
--- OUTSIDE RECORDS SUMMARY | ~2019-11-17 | XMS | Encounter Summary ---
Demographics + + + | Address | [address] | | | [place] [address] | + + + | Home Phone [...] Providers + +------+ + | Care Mold Technician Name | Role | Phone [...] + + | 10/05/ | Refill | [facility] | Alanis, | Medication Refill | | 2017 | | MEDICINE [address] [place] [address] | MD Petrona | | | | | [facility] | [address] [place] [address] | | | | | [place] [address] | [place] [address] | | | | | [phone] | [phone] | | | | | | | [...] | | | | | [place] [address] | | | | | | [phone] | | | | | | | | +--------+---------+ + + + | 12/20/ | Office | Otolaryngology | Ulysses Genao MD | | | 2019 | Visit | | [address] | | | | | | [address] [place], | | | | | | [place] [address] | | | | | | [phone] | | | | | | | | +--------+---------+ + + + | 02/15/ | Office | Internal Medicine | Alanis, | | | 2019 | Visit | | MD Petrona | | | | | | [address] [place] [address] [address] | | | | | | [place] [address] | | | | | | [phone] | | | | | | | | +--------+---------+ + + + documented as of this encounter Visit Diagnoses Not on filedocumented in this encounter"
--- OUTSIDE RECORDS SUMMARY | ~2019-11-17 | XMS | Encounter Summary ---
Demographics + + + | Address | [address] | | | [place] [address] | + + + | Home Phone [...] Team Providers + +------+ + | Care Broach Trouble Shooter Name | Role | Phone [...] + + | 11/09/ | Telephone | [facility] | Alanis, | Medical Problem | | 2018 | | MEDICINE [address] [place] [address] | MD Petrona | | | | | [facility] | [address] [place] [address] | | | | | [place] [address] | [place] [address] | | | | | [phone] | [phone] | | | | | | | [...] | | | | | [place] [address] | | | | | | [phone] | | | | | | | | +--------+---------+ + + + | 12/20/ | Office | Otolaryngology | Ulysses Genao MD | | | 2019 | Visit | | [address] | | | | | | [address] [place], | | | | | | [place] [address] | | | | | | [phone] | | | | | | | | +--------+---------+ + + + | 02/15/ | Office | Internal Medicine | Alanis, | | | 2019 | Visit | | MD Petrona | | | | | | [address] | | | | | | [place] [address] | | | | | | [phone] | | | | | | | | +--------+---------+ + + + documented as of this encounter Visit Diagnoses Not on filedocumented in this encounter"
--- OUTSIDE RECORDS SUMMARY | ~2019-11-17 | XMS | Encounter Summary ---
Demographics + + + | Address | [address] | | | [place] [address] | + + + | Home Phone [...] Providers + +------+ + | Care Drier Operator Name | Role | Phone [...] + + | 02/24/ | Refill | [facility] | Alanis, | Medication Refill | | 2017 | | MEDICINE [address] [place] [address] | MD Petrona | | | | | [facility] | [address] [place] [address] | | | | | [place] [address] | [place] [address] | | | | | [phone] | [phone] | | | | | | | [...] | | | | | [place] [address] | | | | | | [phone] | | | | | | | | +--------+---------+ + + + | 12/20/ | Office | Otolaryngology | Ulysses Genao MD | | | 2019 | Visit | | [address] [place] | | | | | | [address] [place], | | | | | | [place] [address] | | | | | | [phone] | | | | | | | | +--------+---------+ + + + | 02/15/ | Office | Internal Medicine | Alanis, | | | 2019 | Visit | | MD Petrona | | | | | | [address] [place] [address] [address] | | | | | | [place] [address] | | | | | | [phone] | | | | | | | | +--------+---------+ + + + documented as of this encounter Visit Diagnoses Not on filedocumented in this encounter"
--- OUTSIDE RECORDS SUMMARY | ~2019-11-17 | XMS | Encounter Summary ---
Demographics + + + | Address | [address] | | | [place] [address] | + + + | Home Phone [...] Providers + +------+ + | Care Commercial Print Salesman Name | Role | Phone | + [...] + + | 11/26/ | Refill | [facility] | Alanis, | Medication Refill | | 2018 | | MEDICINE [address] [place] [address] | MD Petrona | | | | | [facility] | [address] [place] [address] | | | | | [place] [address] | [place] [address] | | | | | [phone] | [phone] | | | | | | | [...] | | | | | [place] [address] | | | | | | [phone] | | | | | | | | +--------+---------+ + + + | 12/20/ | Office | Otolaryngology | Ulysses Genao MD | | | 2019 | Visit | | [address] [place] | | | | | | [address] [place], | | | | | | [place] [address] | | | | | | [phone] | | | | | | | | +--------+---------+ + + + | 02/15/ | Office | Internal Medicine | EmmyAlberto, | | | 2019 | Visit | | MD Petrona | | | | | | Karla KAY | | | | | | [place] [address] | | | | | | [phone] | | | | | | | | +--------+---------+ + + + documented as of this encounter Visit Diagnoses + + | Diagnosis | + + | Chronic diarrhea Diarrhea | + + documented in this encounter"
--- OUTSIDE RECORDS SUMMARY | ~2019-11-17 | XMS | Clinical Summary ---
Demographics + + + | Address | [address] | | | [place] [address] | + + + | Home Phone [...] Team Providers + +------+ + | Care Smoke Jumper Supervisor Name | Role | Phone | + +------+ + | Sulaiman Carrera MD | PCP | | + +------+ + Source Comments MARK is fully live on both [facility] and [facility] InPatient.[facility] Allergies + + + + + [...] + + + + + + | Pskhxsw-Fiqhwrnmvb-H | | | 08/29/19 | Balance problems [...] in | | | | | | [facility]) | | | | | | [...] | imbalances, sleep apnea, neck pain, medication imscytrEXU11 | + + + + + | [...] | B | | sent | | [place], [place] | | | | | | | | [address] | | + +--------+ +--------+ + +--------+ | [employer] MEDICA[employer] | PAVING BED MAKER | xxxxxxxx | | | | Medica [...] | 1960 | [phone] | [place] [address] | | | bijan | | | 3 (Home) | | + +--------+ +--------+ + + | Belinda Meehan | Medica | Self | [birth year] | | [address] | | | re | | [phone] | [phone] | [place] [address] | | | Recurr | | | 3 (Home) | | | | ing | | | | | + +--------+ +--------+ + + Advance Directives + + + + + | Type | Date Recorded | Patient | Explanation | | | | Rand Sewer | | + + + + + | Advance | 11/19/2004 12:00 | | ADVANCE DIRECTIVE | | Directives and | AM | | | | Living Will | | | | + + + + + | Power of | | | | | Precision Lens Technician | | | | + + + [...]
--- OUTSIDE RECORDS SUMMARY | ~2019-11-17 | XMS | Encounter Summary ---
Demographics + + + | Address | [address] | | | [place] [address] | + + + | Home Phone [...] + +------+ + | Care Supervisor Of Way Name | Role | Phone | + [...] + + | 10/09/ | Refill | [facility] | Alanis, | Medication Refill | | 2017 | | MEDICINE [address] [place] [address] | MD Petrona | | | | | [facility] | [address] [place] [address] | | | | | [place] [address] | [place] [address] | | | | | [phone] | [phone] | | | | | | | [...] | | | | | [place] [address] | | | | | | [phone] | | | | | | | | +--------+---------+ + + + | 12/20/ | Office | Otolaryngology | Ulysses Genao MD | | | 2019 | Visit | | [address] [place] | | | | | | [address] [place], | | | | | | [place] [address] | | | | | | [phone] | | | | | | | | +--------+---------+ + + + | 02/15/ | Office | Internal Medicine | Alanis, | | | 2019 | Visit | | MD Petrona | | | | | | [address] [place] [address] [address] | | | | | | [place] [address] | | | | | | [phone] | | | | | | | | +--------+---------+ + + + documented as of this encounter Visit Diagnoses Not on filedocumented in this encounter"
--- OUTSIDE RECORDS SUMMARY | ~2019-11-17 | XMS | Encounter Summary ---
Demographics + + + | Address | [address] | | | [place] [address] | + + + | Home Phone [...] | Pain | Diagnoses | Miracle, | [place], | | | | Management | LBP (low | NIHARIKA Jean | Lukasz Rhodes, PhD | | | | | back pain) | [address] | [address] | | | | | DJD | [address] | Ave | | | | | (degenerativ | [place], [place] | [place] | | | | | e joint | [address] | [address] | | | | | disease) of | | Phone: | | | | | knee Knee | | [phone] | | | | | pain Major | | Fax: | | | | | depressive | | [phone] | | | | | disorder, | [...] 04/13/ | Office | [facility] Center at [facility] | Lukasz Charles, | Major Depressive | | 2007 | Visit | [address] | PhD [address] | Disorder, Recurrent | | | | Mailcode: 15P | [place], [place] | Episode, Mild (HCC); | | | | [place] [facility] | [address] | LBP (Low Back | | | | and Healing, | [phone] | Pain); Migraine | | | | | | Headache; Adjustment | | | | Floor [place], [place] | | Disorder with | | | | [address] | | Anxiety | | | | [phone] | | | +--------+---------+ + + + [...] plans for her surgical recovery period. Diagnosis: [place] I: 1. (296.31) Major depressive disorder, recurrent, mild. 2. (309.24) Adjustment disorder with anxiety. 3. 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 [place] II: Deferred [place] III: abdominal pain, migraine headache, low back pain. [place] IV: low finances [place] V: GAF 55-60 Plan: return with next medical follow-up appointment. Check mood, pain, relaxation, activ ity, distraction, eating. Ask about headaches, fainting, surgery. Continue cognitive/behav ioral therapy. Total time spent with patient was approximately 45 minutes. LUKASZ CHARLES PHD [facility] [address] [facility] [address] [address] documented in this encount er Plan of Treatment + + +--------+ + + | Name | Type | Priori | Associated Diagnoses | Order Schedule | | | | ty | | | + + +--------+ + + | [place] [facility], | Procedures | Routin | Major Depressive | Ordered: 04/13/2008 | | OFFICE (66-46) | | e | Disorder, Recurrent | [...]
--- OUTSIDE RECORDS SUMMARY | ~2019-11-17 | XMS | Encounter Summary ---
Demographics + + + | Address | [address] | | | [place] [address] [...] | | | | [place]ATH | [place] [address] | IDIOPATHIC; Lumbar | | | | [address] | [phone] | radiculopathy | | | | [phone] | | primarily right; S/P | | [...] blood sugars if you a re diabetic. penitentiary risk can lead to osteoporosis which is [...] were performed by a Dr. García in [place]. The patient is unable to take NSAID's [...] visit. ALLERGIES: Allergies Allergen Reactions Amitriptyline Hcl Bguuphenfe-Iucj-Qruhegnu Cephalexin Ciprofloxacin Clarithromycin Clindamycin Hcl Codeine Sulfate [...] has no apparent deficits with short or alf memory. She has appropriate fund of knowledge [...] PT (multiple sessions over the years) and child care assistant. Unfortunately she nelly nues to have significant [...] she is starting physical therapy again in [place]. 5. I will see the patient 2 [...] | | | | | | [address] [facility] | | | | | | [place] [address] | | | | | | [phone] | | | | | | | | +--------+---------+ + + + | 12/20/ | Office | Otolaryngology | Ulysses Genao MD | | | 2019 | Visit | | [address] | | | | | | [address] [place], | | | | | | [place] [address] | | | | | | [phone] | | | | | | | | +--------+---------+ + + + | 02/15/ | Office | Internal Medicine | Alanis, | | | 2019 | Visit | | MD Petrona | | | | | | [address] [place] | | | | | | [place] [address] | | | | | | [phone] | | | | | | | [...] 720.0 Belinda Meehan presents to the | [facility] | | fluoroscopy suite for fluoroscopically guided bilateral sacroiliac [facility] | | joint steroid injections as [...] + | [facility] | [address] | [place], [place] | [phone] | | [facility] | | [address] | | | - IMAGING | | [...] 720.0 Belinda Meehan presents to the | [facility] | | fluoroscopy suite for fluoroscopically guided bilateral sacroiliac [facility] | | joint steroid injections as [...] | + + + + + | [facility] | [address] | [place] | [phone] | | [facility] | | [address] | | | - IMAGING | | [...]
--- OUTSIDE RECORDS SUMMARY | ~2019-11-17 | XMS | Encounter Summary ---
Demographics + + + | Address | [address] | | | [place] [address] | + + + | Home Phone [...] + | 04/09/ | Refill | [facility] | Alanis, | Medication Refill | | 2017 | | MEDICINE [place] | MD Petrona | | | | | [address] | [address] [facility] | | | | | [place] | [place] [address] | | | | | [address] | [phone] | | | | | [phone] | | | +--------+--------+ + + + [...] | | | | | [place] [address] | | | | | | [phone] | | | | | | | | +--------+---------+ + + + | 12/20/ | Office | Otolaryngology | Ulysses Genao MD | | | 2019 | Visit | | [address] [place] | | | | | | [address] [place], | | | | | | [place] [address] | | | | | | [phone] | | | | | | | | +--------+---------+ + + + | 02/15/ | Office | Internal Medicine | Alanis, | | | 2019 | Visit | | MD Petrona | | | | | | [address] [place] | | | | | | [place] [address] | | | | | | [phone] | | | | | | | | +--------+---------+ + + + documented as of this encounter Visit Diagnoses Not on filedocumented in this encounter"
--- OUTSIDE RECORDS SUMMARY | ~2019-11-17 | XMS | Encounter Summary ---
Demographics + + + | Address | [address] | | | [place] [address] | + + + | Home Phone [...] Team Providers + +------+ + | Care Buoy Tender Name | Role | Phone | [...] [address] | | | | | | [facility] | | | | | | [place], [place] | | | | | | [address] | | | | | | [phone] | | | +--------+ + + + [...]
--- OUTSIDE RECORDS SUMMARY | ~2019-11-17 | XMS | Encounter Summary ---
Demographics + + + | Address | [address] | | | [place] [address] [...] Providers + +------+ + | Care Director Drug Safety Name | Role | Phone | + [...] Thoracic or | [place], | [address] | | | | | lumbosacral | Carlos Armijo MD | [place], | | | | | neuritis or | [address] | [place] | | | | | | [place] | [address] | | | | | radiculitis, | [place], [place] | Phone: | | | | | unspecified | [address] | [phone] | | | | | Procedures | Phone: | Fax: | | | | | [place] INJECT | [phone] | [phone] | | | | | ANES/STEROID | Fax: | | | | | | FORAMEN | [phone] | | | | | | LUMBAR/SACRA [...] + + + + | 01/19/ | [facility] | [facility] | Carlos Hsieh | Lumbar radiculopathy | | 2015 | Encounter | MED CTR XRAY [address] | T, [address] | primarily right | | | | [place] | [facility] [place] | | | | | [place] [address] | [id number] | | | | | [phone] | | | | | | | Account Manager Forest ServiceKristyn | | | | | | [place] [...] Audiology | Eilsabet Munson MS | | | 2019 | Visit | | [facility] [address] | | | | | | [address] [place] | | | | | | [place] [address] | | | | | | [phone] | | | | | | | | +--------+---------+ + + + | 12/20/ | Office | Otolaryngology | Ulysses Genao MD | | | 2019 | Visit | | [address] [place] | | | | | | [address] [place], | | | | | | [place] [address] | | | | | | [phone] | | | | | | | | +--------+---------+ + + + | 02/15/ | Office | Internal Medicine | Alanis, | | | 2019 | Visit | | MD Petrona | | | | | | [address] [facility] | | | | | | [place] [address] | | | | | | [phone] | | | | | | | [...] radiculopathy ICD-9 Code 724.4 Belinda Basilio | [facility] | | Shefali presents to the fluoroscopy suite for | [facility] | | fluoroscopically-guided bilateral L5-S1 [...] [address] | [place] | [phone] | | [facility] | | [address] | | | - IMAGING | | [...]
--- OUTSIDE RECORDS SUMMARY | ~2019-11-17 | XMS | Encounter Summary ---
Demographics + + + | Address | [address] | | | [place] [address] | + + + | Home Phone [...] Providers + +------+ + | Care Research Mechanic Name | Role | Phone | [...] [address] | | | | | [place], [place] | [place], [place] | | | | | [address] | [address] | | | | | [phone] | [phone] | | | | | | | [...]
--- OUTSIDE RECORDS SUMMARY | ~2019-11-17 | XMS | Encounter Summary ---
Demographics + + + | Address | [address] | | | [place] [address] | + + + | Home Phone [...] Providers + +------+ + | Care Tobacco Sprayer Name | Role | Phone | [...] 07/30/ | Office | [facility] Center at 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 Ms. Meehan has depression and frustration. She is having some difficulty increasing her a ctivity level but she is putting forth effort. She appears to have good insight. Diagnosis: [place] I: 1. (296.32) Major depressive disorder, recurrent, moderate. 2. (309.24) Adjustment disorder with anxiety. 3. 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 [place] II: Deferred [place] III: abdominal pain, migraine headache, low back pain. [place] IV: low finances [place] V: GAF 50 Plan: Return in 2 weeks. Check pacing, relaxation, activity. Check trip to [place]. Check mood. Continue cognitive/behavioral therapy. Total time spent with patient was approximately 45 minutes. LUKASZ CHARLES PHD [facility] [address] [facility] And [address] [address] documented in this encount er Plan of Treatment + + +--------+ + + | Name | Type | Priori | Associated Diagnoses | Order Schedule | | | | ty | | | + + +--------+ + + | [place] PSYCHOTHERPY, | Procedures | Routin | Major Depressive | Ordered: 07/31/2006 | | OFFICE (45-97) | | e | Disorder, Recurrent | [...]
--- OUTSIDE RECORDS SUMMARY | ~2019-11-17 | XMS | Encounter Summary ---
Demographics + + + | Address | [address] | | | [place] [address] | + + + | Home Phone [...] Team Providers + +------+ + | Care Hydrographic Surveyor Name | Role | Phone | [...] | | | | Sara Kovacs | [facility] | | | | | Mailcode: Center | [place] [address] | | | | | for Health and | [phone] | | | | | Healing, Building [address] | | | | | | [place], [place] | | | | | | [address] | | | | | | [phone] | | | +--------+ + + + [...]
--- OUTSIDE RECORDS SUMMARY | ~2019-11-17 | XMS | Encounter Summary ---
Demographics + + + | Address | [address] | | | [place] [address] | + + + | Home Phone [...] Team Providers + +------+ + | Care Reworker Name | Role | Phone | + [...] + + | 12/28/ | Telephone | [facility] | Alanis, | Radiology | | 2018 | | MEDICINE [address] [place] [address] | MD Petrona | Appointment | | | | [facility] | [address] [place] [address] | | | | | [place] [address] | [place] [address] | | | | | [phone] | [phone] | | | | | | | [...] | | | | | [place] [address] | | | | | | [phone] | | | | | | | | +--------+---------+ + + + | 12/20/ | Office | Otolaryngology | Ulysses Genao MD | | | 2020 | Visit | | [address] [place] | | | | | | [address] [place], | | | | | | [place] [address] | | | | | | [phone] | | | | | | | | +--------+---------+ + + + | 02/15/ | Office | Internal Medicine | Alanis, | | | 2019 | Visit | | MD Petrona | | | | | | [address] | | | | | | [place] [address] | | | | | | [phone] | | | | | | | | +--------+---------+ + + + documented as of this encounter Visit Diagnoses Not on filedocumented in this encounter"
--- OUTSIDE RECORDS SUMMARY | ~2019-11-17 | XMS | Encounter Summary ---
Demographics + + + | Address | [address] | | | [place] [address] | + + + | Home Phone [...] Providers + +------+ + | Care Trimming Cutter Machine Name | Role | Phone [...] Required | | paroxysmal | [address] | [facility] | | | | | positional | [address] | [address] | | | | | vertigo, | [place] | AVE | | | | | left | [place], [place] | [place], [place] | | | | | Vertigo of | [address] | [address] | | | | | central | Phone: | Phone: | | | | | origin, left | [phone] | [phone] | | | | | | Fax: | Fax: | | | | | | [phone] | [phone] | +--------+ + + + + + + + | Scheduling Instructions | + + | Patient is going to be having an Tayler maneuver done and at [facility]. | + + Encounter Details +--------+ + + + + | Date | Type | Department | Care Team | Description | +--------+ + + + + | 12/11/ | Orders Only | [facility] | Ulysses Genao MD | Benign paroxysmal | | 2015 | | OTOLARYNGOLOGY [address] | [address] [place] | positional vertigo, | | | | [address] | [address] [place], | left (Primary Dx); | | | | [place] | [place] [address] | Vertigo of central | | | | [address] | [phone] | origin, left | | | | [phone] | | | +--------+ + + + [...] [facility] [address] | | | | | ST [place] | | | | | | [place] [address] | | | | | | [phone] | | | | | | | | +--------+---------+ + + + | 12/20/ | Office | Otolaryngology | Ulysses Genao MD | | | 2019 | Visit | | [address] | | | | | | [address] [place], | | | | | | [place] [address] | | | | | | [phone] | | | | | | | | +--------+---------+ + + + | 02/15/ | Office | Internal Medicine | Alanis, | | | 2019 | Visit | | MD Petrona | | | | | | [address] | | | | | | [place] [address] | | | | | | [phone] | | | | | | | [...]
--- OUTSIDE RECORDS SUMMARY | ~2019-11-17 | XMS | Encounter Summary ---
Demographics + + + | Address | [address] | | | [place] [address] | + + + | Home Phone [...] + | 12/07/ | Abstract | [facility] | Alanis, | | | 2017 | | MEDICINE [address] | MD Petrona | | | | | [address] [place] | [address] [facility] | | | | | [place] [address] | [place] [address] | | | | | [phone] | [phone] | | | | | | | [...] | | | | | [place] [address] | | | | | | [phone] | | | | | | | | +--------+---------+ + + + | 12/20/ | Office | Otolaryngology | Ulysses Genao MD | | | 2019 | Visit | | [address] | | | | | | [address] [place], | | | | | | [place] [address] | | | | | | [phone] | | | | | | | | +--------+---------+ + + + | 02/15/ | Office | Internal Medicine | Alanis, | | | 2019 | Visit | | MD Petrona | | | | | | [address] [place] | | | | | | [place] [address] | | | | | | [phone] | | | | | | | [...]
--- OUTSIDE RECORDS SUMMARY | ~2019-11-17 | XMS | Encounter Summary ---
Demographics + + + | Address | [address] | | | [place] [address] | + + + | Home Phone [...] Team Providers + +------+ + | Care Pretzel Packer Name | Role | Phone | [...] [address] | | | | | [place], [place] | [place], [place] | | | | | [address] | [address] | | | | | [phone] | [phone] | | | | | | | [...] + | [facility] | [address] | [place] [address] | | | PATHOLOGY | [address] | | | + + + + + | [facility] | [address] | [place] [address] | | | PATHOLOGY | [address] [...] DEPARTMENT OF | [address] | [place] [address] | | | PATHOLOGY | [address] | | | + + + + + | [place] DEPARTMENT OF | [address] | [place] [address] | | | PATHOLOGY | [address] [...] HOSPITAL DEPARTMENT OF | [address] [facility] | [place] [address] | | | PATHOLOGY | [address] | | | + + + + + | [facility] DEPARTMENT OF | [address] [facility] | [place] [address] | | | PATHOLOGY | [address] [...] + + | [facility] | [address] [place] [address] | [place] [address] | | | PATHOLOGY | [address] | | | + + + + + | [facility] DEPARTMENT OF | [facility] | [place] [address] | | | PATHOLOGY | [address] | | | + + + + + documented in this encounter Visit Diagnoses Not on filedocumented in this encounter"
--- OUTSIDE RECORDS SUMMARY | ~2019-11-17 | XMS | Encounter Summary ---
Demographics + + + | Address | [address] | | | [place] [address] | + + + | Home Phone [...] Providers + +------+ + | Care Decorator Mannequin Name | Role | Phone | + [...] + + | 08/10/ | Telephone | [facility] | Rosi Antonio, | Fall Ground Level | | 2013 | | Pain Center at | ANP | | | | | [facility] | | | | | | [address] | | | | | | Mailcode: CH15P | | | | | | [facility] | | | | | | and Healing, | | | | | | Building | | | | | | Floor [place], [place] | | | | | | [address] | | | | | | [phone] | | | +--------+ + + + [...]
--- OUTSIDE RECORDS SUMMARY | ~2019-11-17 | XMS | Encounter Summary ---
Demographics + + + | Address | [address] | | | [place] [address] | + + + | Home Phone [...] Providers + +------+ + | Care Coupon And Bond Collection Clerk Name | Role | Phone [...] + + | 09/09/ | Telephone | [facility] | Alanis, | Phone Attempt | | 2018 | | MEDICINE [address] [place] [address] | MD Petrona | | | | | [facility] | [address] [place] [address] | | | | | [place] [address] | [place] [address] | | | | | [phone] | [phone] | | | | | | | [...] | | | | | [place] [address] | | | | | | [phone] | | | | | | | | +--------+---------+ + + + | 12/20/ | Office | Otolaryngology | Ulysses Geano MD | | | 2019 | Visit | | [address] [place] | | | | | | [address] [place], | | | | | | [place] [address] | | | | | | [phone] | | | | | | | | +--------+---------+ + + + | 02/15/ | Office | Internal Medicine | Alanis, | | | 2019 | Visit | | MD [place] | | | | | | [address] [place] | | | | | | [place] [address] | | | | | | [phone] | | | | | | | | +--------+---------+ + + + documented as of this encounter Visit Diagnoses Not on filedocumented in this encounter"
--- OUTSIDE RECORDS SUMMARY | ~2019-11-17 | XMS | Encounter Summary ---
Demographics + + + | Address | [address] | | | [place] [address] | + + + | Home Phone [...] + +------+ + | Care Director Of Graduate Medical Education Name | Role | Phone | [...] | | | Ave Mailcode: CH4S | [facility] | | | | | [facility] | [place], [place] | | | | | and Healing, | [address] | | | | | [place] [address] [facility] | [phone] | | | | | Floor [place], [place] | | | | | | [address] | | | | | | [phone] | | | +--------+ + + + [...]
--- OUTSIDE RECORDS SUMMARY | ~2019-11-17 | XMS | Encounter Summary ---
Demographics + + + | Address | [address] | | | [place] [address] | + + + | Home Phone [...] Team Providers + +------+ + | Care Staffing Analyst Name | Role | Phone | [...] + + | 08/18/ | Office | [facility] | Alanis, | Preop examination | | 2018 | Visit | MEDICINE [address] | MD Petrona | (Primary Dx); | | | | [facility] | [address] [facility] | Trigger finger of | | | | [place] [address] | [place] [address] | all digits of left | | | | [phone] | [phone] | hand | | | | | [...] r with Dr. Dr Jefe Cruz in [place], [place]. . She had surgery before and [...] panel yesterday at [facility] in [place] which came back okay. REVIEW OF SYSTEMS [...] insufficiency Coccydynia COPD (chronic obstructive pulmonary disease) ([facility]) Depression Diarrhea Dumping syndrome Fall at home Fatigue fracture of vertebra Fibromyalgia GERD (gastroesophageal reflux disease) Glaucoma Hyperparathyroidism ([facility]) Hypothyroidism IBS (irritable bowel syndrome) Idiopathic scoliosis Leg edema Low back pain Lumbar postlaminectomy syndrome Lumbar radiculopathy primarily right 01/04/2015 Meniere syndrome Migraine with aura Migraines Muscle cramping Muscle spasm Myalgia Nonalcoholic hepatosteatosis Obesity Opioid dependence ([facility]) Orthostatic hypotension OLIVER (obstructive sleep apnea) Osteoarthritis, generalized Osteopenia Osteoporosis Peripheral neuropathy ([facility]) Rheumatoid arthritis ([facility]) Right [...] (See Comments) Confused and questionable for seizures Motfmkrqzu-Bgyw-Pmtwgjue Cephalexin Hives Duloxetine Migraines and nausea Ketorolac Hives Morphine Swelling Ropinirole Hcl Hives Tramadol Hcl Nausea Only Uheiffvexr-Yhde-Txgpumck Hives and Rash Ciprofloxacin Hives and Rash [...] Note: Parts of this documentwere created using [employer] speech recognition software. As a r esult, [...] | | | | | [place] [address] | | | | | | [phone] | | | | | | | | +--------+---------+ + + + | 12/20/ | Office | Otolaryngology | Ulysses Genao MD | | | 2019 | Visit | | [address] [place] | | | | | | [address] [place], | | | | | | [place] [address] | | | | | | [phone] | | | | | | | | +--------+---------+ + + + | 02/15/ | Office | Internal Medicine | Alanis, | | | 2019 | Visit | | MD Petrona | | | | | | [address] [place] | | | | | | [place] [address] | | | | | | [phone] | | | | | | | [...]
--- OUTSIDE RECORDS SUMMARY | ~2019-11-17 | XMS | Encounter Summary ---
Demographics + + + | Address | [address] | | | [place] [address] | + + + | Home Phone [...] Providers + +------+ + | Care Framing And Hanging Name | Role | Phone | + [...] | | | | | [place], [place] | | | | | | [address] | | | | | | [phone] | | | +--------+ + + + [...]
--- OUTSIDE RECORDS SUMMARY | ~2019-11-17 | XMS | Encounter Summary ---
Demographics + + + | Address | [address] | | | [place] [address] | + + + | Home Phone [...] Providers + +------+ + | Care Personnel Coordinator Name | Role | Phone | [...] | Procedure | Kraig Turner | Marco Antoino Portillo MD | Bone Density Scan | | 2007 | | [facility] | [address] [facility] | | | | | [facility] | [address] [place], | | | | | [address] | [place] [address] | | | | | [address] | [phone] | | | | | Physician's | | | | | | Pavilion, 1st floor | | | | | | [place], [place] | | | | | | [address] | | | | | | [phone] | | | +--------+ + + + [...] | | + +---------+--------+ + + | [place] DXA BONE | Imaging | Routin | [...]
--- OUTSIDE RECORDS SUMMARY | ~2019-11-17 | XMS | Encounter Summary ---
Demographics + + + | Address | [address] | | | [place] [address] | + + + | Home Phone [...] Team Providers + +------+ + | Care Cat Dog Or Other Pet Groomer Name | Role | Phone | + [...] + + | 05/28/ | Office | [facility] Migraine Headache; | | | | Floor [place], [place] | | Herniated Lumbar | | | | [address] | | Intervertebral Disc | | | | [phone] | | L4-5; Fibromyalgia | | | [...] a 47 y.o. female [facility] [...] diagnostics and lab results. 6. [facility] with [facility] knee Post arthroplasty physical rehabiliation. 7. Schedule follow up in one month or sooner if needed - The pateint was asked to call the clinic with any concerns or questions. DELFINA MOLINA [facility] Mail code CH 4P [facility] [address] [place] [address] asha Nolasco - 05/28/2007 10:01 AM [...] of 103.2 she was seen here at [facility] today the temp is 100.2 3. Do [...]
--- OUTSIDE RECORDS SUMMARY | ~2019-11-17 | XMS | Encounter Summary ---
Demographics + + + | Address | [address] | | | [place] [address] | + + + | Home Phone [...] Team Providers + +------+ + | Care Auctioneer Art Name | Role | Phone | + [...] | | | | FAMILY | Rd [place], | | | | | | MEDICINE | [place] | | | | | | [address] | [address] | | | | | | [place] | Phone: | | | | | | [place], | [phone] | | | | | | [place] [address] | Fax: | | | | | | Phone: | [phone] | | | | | | [phone] | | | | | | | Fax: | | | | | | | [phone] | | +--------+--------+ + + + + [...] | (Primary Dx) | | | | [facility] | [place], [place] | | | | | and Healing, | [address] | | | | | [facility] | [phone] | | | | | Floor [place], [place] | | | | | | [address] | | | | | | [phone] | | | +--------+---------+ + + + [...] She is being followe d with [facility] providers for metabolic syndrome and hypothyroidism - Dr. Meeks, emotional issue s - Dr. Lukasz Ogden, and her PCP in [place]. She has sx of stress urinary incontinence [...] treated. She would like a urology or LOCAL TRUCK DRIVER referral as appropriate. Labs ordered. See in [...] [place] | | | | | | [place] [address] | | | | | | [phone]. | | | | | | Sincere [...] | [facility] | | [address] | | + + + + + [...] | + + + + + | [facility] | [address] | [place] [address] | | | LABORATORY | | | [...] ([address] [facility]) | | | [facility] [place] [address] | | | [place] [address] | | + + + + + + + + | Performing | Address | City/State/Zipcode | Phone Number | | Organization | | | | + + + + + | [facility] | [address] | [place] [address] | | | LABORATORY | | | [...] ([address] [facility]) | | | [facility] [place] [address] | | | [place] [address] | | + + + + + + + + | Performing | Address | City/State/Zipcode | Phone Number | | Organization | | | | + + + + + | [facility] | [address] | [place] [address] | | | LABORATORY | | | [...] Performed At | + + + | 90123 Estimated GFR > 60 mL/min/1.73 sq m if non- | [facility] | | [id number] Estimated GFR > 60 mL/min/1.73 sq m [...] [facility] DEPARTMENT OF | [address] [facility] | [place] [address] | | | PATHOLOGY | [address] | | | + + + + + | [facility] DEPARTMENT OF | [address] [facility] | [place] [address] | | | PATHOLOGY | [address] [...] | + + + + + | [facility] | [address] [facility] | [place] [address] | | | PATHOLOGY | [address] | | | + + + + + | [facility] | [address] [facility] | [place] [address] | | | PATHOLOGY | [address] | | | + + + + + documented in this encounter Visit Diagnoses + + | Diagnosis | + + | Status post bariatric surgery - Primary Bariatric surgery status | + + documented in this encounter"
--- OUTSIDE RECORDS SUMMARY | ~2019-11-17 | XMS | Encounter Summary ---
Demographics + + + | Address | [address] | | | [place] [address] | + + + | Home Phone [...] Providers + +------+ + | Care Transport Company Manager Name | Role | Phone | [...] | | 2006 | | [facility] [employer] | [address] | | | | | for [facility] and | [place], [place] | | | | | Healing [address] | [address] | | | | | Ave Mailcode: | [phone] | | | | | [facility] | | | | | | Health and Healing, | | | | | | [facility] | | | | | | [place], [place] | | | | | | [address] | | | | | | [phone] | | | +--------+ + + + [...]
--- OUTSIDE RECORDS SUMMARY | ~2019-11-17 | XMS | Encounter Summary ---
Demographics + + + | Address | [address] | | | [place] [address] | + + + | Home Phone [...] Providers + +------+ + | Care Director Work Name | Role | Phone | [...] + + | 04/19/ | Telephone | [facility] | Alanis, | Lab Results | | 2019 | | MEDICINE [address] [place] [address] | MD Petrona | | | | | [facility] | [address] [place] [address] | | | | | [place] [address] | [place] [address] | | | | | [phone] | [phone] | | | | | | | [...] | | | | | [place] [address] | | | | | | [phone] | | | | | | | | +--------+---------+ + + + | 12/20/ | Office | Otolaryngology | Ulysses Genao MD | | | 2020 | Visit | | [address] [place] | | | | | | [address] [place], | | | | | | [place] [address] | | | | | | [phone] | | | | | | | | +--------+---------+ + + + | 02/15/ | Office | Internal Medicine | Alanis, | | | 2019 | Visit | | MD Petrona | | | | | | [address] | | | | | | [place] [address] | | | | | | [phone] | | | | | | | | +--------+---------+ + + + documented as of this encounter Visit Diagnoses Not on filedocumented in this encounter"
--- OUTSIDE RECORDS SUMMARY | ~2019-11-17 | XMS | Encounter Summary ---
Demographics + + + | Address | [address] | | | [place] [address] | + + + | Home Phone [...] Providers + +------+ + | Care Assistant Women'S Soccer Coach Name | Role | [...] as of this encounter Progress Notes Interface, Regional Sales Consultant In - 01/12/2005 10:09 AM PDT [id number] GEOVANNI [facility] Date: 12/19/2004 Clinic: General [...] as vitamin B12. Melisa Thorne / SHARIF [id number] / [id number] / [id number] / [id number] cc: Pedrito Gutierrez M.D. [address] [address] FAX: [phone] Chris Padgett M.D. General Surgery, [facility] Electronically signed by Kenisha Melton 12-25-2004 04:28:39 PM documented i n this encounter Plan of Treatment Not on filedocumented as of this encounter Visit Diagnoses Not on filedocumented in this encounter"
--- OUTSIDE RECORDS SUMMARY | ~2019-11-17 | XMS | Encounter Summary ---
Demographics + + + | Address | [address] | | | [place] [address] | + + + | Home Phone [...] Providers + +------+ + | Care Paper Folder Name | Role | Phone | [...] as of this encounter Progress Notes Interface, Dulser In - 01/12/2005 6:20 AM PDT JenniferBelinda garner [id number] MED REC NUMBER: [id number] NAME : Belinda Meehan DATE : 1960 DISCHARGE ASSESSMENT AND CASE MANAGEMENT NOTES Chart Reviewed: 2004-12-04 15:29:00 Inspector Subassemblies: Lou Jordan RN Preadmission living situation: family If facilty, name: Additional needs assessment: Case Management Initial Assessment and Ongoing Notes: 12/04/2004 15:29 Rec'd referral from IR printout. Pt presenti jen for panniculectomy per Dr. Chris Padgett 12/06/2004. ----- ------- Living Situation: Pt lives w/ her son, Sree in [place], [place]. Pt also has a caregiver from [employer] and [employer] come in for 8-9 hours per day when her son is not home. Transportation: Pat w/ [employer] will take pt home (H) (C). Home Health: Pt has an RN from [employer] and [employer] [facility] visit once a month for an assesment (H) or (C). Medical Equipment: Pt states that she has forearm crutches, a shower chair, and is working on getting hand bars installed into her shower. ---- Co-Morbidities: Panniculitis, s/p gastric bypass, arthritis, asthma, NIDDM, GERD, HTN, and sleep apnea. ------ Providers: PCP is Dr. Pedrito Gutierrez in [facility] and Dr. William Meeks [facility] metabolic disorder clinic. Narrative: Pt asked [...] questions or concerns, contact information [place]. [place] [id number] documented i n this encounter Plan of Treatment Not on filedocumented as of this encounter Visit Diagnoses Not on filedocumented in this encounter"
--- OUTSIDE RECORDS SUMMARY | ~2019-11-17 | XMS | Encounter Summary ---
Demographics + + + | Address | [address] | | | [place] [address] | + + + | Home Phone [...] Team Providers + +------+ + | Care Deli Clerk Name | Role | Phone | [...] [id number] | | | | | | [place], [place] | | | | | | [address] | | | | | | [phone] | | | +--------+ + + + [...]
--- OUTSIDE RECORDS SUMMARY | ~2019-11-17 | XMS | Encounter Summary ---
Demographics + + + | Address | [address] | | | [place] [address] | + + + | Home Phone [...]
--- OUTSIDE RECORDS SUMMARY | ~2019-11-17 | XMS | Encounter Summary ---
Demographics + + + | Address | [address] | | | [place] [address] | + + + | Home Phone [...] + +------+ + | Care Geographic Information Scientist Name | Role | Phone | [...] + | 01/04/ | Telephone | [facility] | Alanis, | Skin Irritation | | 2017 | | MEDICINE [address] [place] [address] | MD Petrona | | | | | [facility] [place] [facility] | [address] [place] [address] | | | | | [place] [address] | [place] [address] | | | | | [phone] | [phone] | | | | | | | [...] | | | | | [place] [address] | | | | | | [phone] | | | | | | | | +--------+---------+ + + + | 12/20/ | Office | Otolaryngology | Ulysses Genao MD | | | 2019 | Visit | | [address] [place] | | | | | | [address] [place], | | | | | | [place] [address] | | | | | | [phone] | | | | | | | | +--------+---------+ + + + | 02/15/ | Office | Internal Medicine | Alanis, | | | 2019 | Visit | | MD Petrona | | | | | | [address] [place] | | | | | | [place] [address] | | | | | | [phone] | | | | | | | | +--------+---------+ + + + documented as of this encounter Visit Diagnoses + + | Diagnosis | + + | Tinea cruris - Primary Dermatophytosis of groin and perianal area | + + documented in this encounter"
--- OUTSIDE RECORDS SUMMARY | ~2019-11-17 | XMS | Encounter Summary ---
Demographics + + + | Address | [address] | | | [place] [address] | + + + | Home Phone [...] Providers + +------+ + | Care Didactic Instructor Name | Role | Phone | [...] + | 05/26/ | Telephone | [facility] | Aalnis, | Medication Question | | 2018 | | MEDICINE [address] [place] [address] | MD Petrona | | | | | [facility] | [address] [place] [address] | | | | | [place] [address] | [place] [address] | | | | | [phone] | [phone] | | | | | | | [...] | | | | | [place] [address] | | | | | | [phone] | | | | | | | | +--------+---------+ + + + | 12/20/ | Office | Otolaryngology | Ulysses Genao MD | | | 2019 | Visit | | [address] [place] | | | | | | [address] [place] | | | | | | [place] [address] | | | | | | [phone] | | | | | | | | +--------+---------+ + + + | 02/15/ | Office | Internal Medicine | Alanis, | | | 2019 | Visit | | MD Petrona | | | | | | [address] | | | | | | [place] [address] | | | | | | [phone] | | | | | | | | +--------+---------+ + + + documented as of this encounter Visit Diagnoses Not on filedocumented in this encounter"
--- OUTSIDE RECORDS SUMMARY | ~2019-11-17 | XMS | Encounter Summary ---
Demographics + + + | Address | [address] | | | [place] [address] | + + + | Home Phone [...] Team Providers + +------+ + | Care Phy Therapist Name | Role | Phone | [...] as of this encounter Progress Notes Interface, Sebd Teacher In - 01/12/2005 6:20 AM PDT JenniferBelinda garner [id number] MED REC NUMBER: [id number] NAME : Belinda Meehan DATE : 1960 DISCHARGE ASSESSMENT AND CASE MANAGEMENT NOTES Chart Reviewed: 2004-12-04 15:29:00 Departure Clerk: Lou Jordan RN Preadmission living situation: family If facilty, name: Additional needs assessment: Case Management Initial Assessment and Ongoing Notes: 12/04/2004 15:29 Rec'd referral from IR printout. Pt presenti jen for panniculectomy per Dr. Chris Padgett 12/06/2004. ----- ------- Living Situation: Pt lives w/ her son, Sree in [place], [place]. Pt also has a caregiver from [employer] [facility] [employer] come in for 8-9 hours per day when her son is not home. Transportation: Pat w/ [employer] will take pt home (H) (C). Home Health: Pt has an RN from [employer] [facility] [employer] [facility] visit once a month for an assesment (H) or (C). Medical Equipment: Pt states that she has forearm crutches, a shower chair, and is working on getting hand bars installed into her shower. ---- Co-Morbidities: Panniculitis, s/p gastric bypass, arthritis, asthma, NIDDM, GERD, HTN, and sleep apnea. ------ Providers: PCP is Dr. Pedrito Gutierrez in [facility] and Dr. William Meeks [facility] metabolic disorder clinic. Narrative: Pt asked if [...] or concerns, [place] [id number] documented i n this encounter Plan of Treatment Not on filedocumented as of this encounter Visit Diagnoses Not on filedocumented in this encounter"
--- OUTSIDE RECORDS SUMMARY | ~2019-11-17 | XMS | Encounter Summary ---
Demographics + + + | Address | [address] | | | [place] [address] | + + + | Home Phone [...] Providers + +------+ + | Care Waste Elimination Name | Role | Phone | + [...] [address] | | | | | | [place], [place] | | | | | | [address] | | | | | | [phone] | | | +--------+ + + + [...]
--- OUTSIDE RECORDS SUMMARY | ~2019-11-17 | XMS | Encounter Summary ---
Demographics + + + | Address | [address] | | | [place] [address] | + + + | Home Phone [...] Providers + +------+ + | Care Gauge Operator Name | Role | Phone | [...] | | | | Sara Kovacs | [facility] | | | | | Mailcode: Center | [place] [address] | | | | | for Health and | [phone] | | | | | Healing, [address] | | | | | | [place], [place] | | | | | | [address] | | | | | | [phone] | | | +--------+ + + + [...]
--- OUTSIDE RECORDS SUMMARY | ~2019-11-17 | XMS | Encounter Summary ---
Demographics + + + | Address | [address] | | | [place] [address] | + + + | Home Phone [...] + +------+ + | Care Cement Mason Helper Name | Role | Phone | [...] | | | [facility] | [place], [place] | | | | | [address] | [address] | | | | | [address] | [phone] | | | | | Physician's | | | | | | Pavilion, 1st floor | | | | | | [place], [place] | | | | | | [address] | | | | | | [phone] | | | +--------+ + + + [...]
--- OUTSIDE RECORDS SUMMARY | ~2019-11-17 | XMS | Encounter Summary ---
Demographics + + + | Address | [address] | | | [place] [address] | + + + | Home Phone [...] Providers + +------+ + | Care Financial Professional Name | Role | Phone | [...] Transcriptions | + + | Interface, Medical Collections Specialist In - 06/05/2005 5:20 AM PST | | [id number] | | [id number] GEOVANNI Barnes | | | | Date: 12/06/2004 | | | | Attending Surgeon: Chris Padgett M.D. | | | | Inspector Penetrant(s): | | | | Preoperative Diagnosis(es): | [...] | | BW / HS | | [id number] / [id number] / [id number] / | | | | | | | | | | | | Electronically signed by Chris Padgett 12-31-2004 03:02:45 PM | + + documented in this encounter Visit Diagnoses Not on filedocumented in this encounter"
--- OUTSIDE RECORDS SUMMARY | ~2019-11-17 | XMS | Encounter Summary ---
Demographics + + + | Address | [address] | | | [place] [address] | + + + | Home Phone [...] Team Providers + +------+ + | Care Snack Stewardess Name | Role | Phone | + +------+ + | Pedrito Gutierrez MD | PCP | | + +------+ + Encounter Details +--------+ + + + + | Date | Type | Department | Care Team | Description | +--------+ + + + + | 08/04/ | Telephone | [facility] | Chris Padgett, | | | 2006 | | [place] [address] | [address] [facility] | | | | | Bethanie Mailcode: CH4S | [facility] | | | | | Center for Health | [place], [place] | | | | | and Healing, | [address] | | | | | Building | [phone] | | | | | Floor [place], [place] | | | | | | [address] | | | | | | [phone] | | | +--------+ + + + [...]
--- OUTSIDE RECORDS SUMMARY | ~2019-11-17 | XMS | Encounter Summary ---
Demographics + + + | Address | [address] | | | [place] [address] | + + + | Home Phone [...] [id number] | | | | | | [place], [place] | | | | | | [address] | | | | | | [phone] | | | +--------+--------+ + + + [...]
--- OUTSIDE RECORDS SUMMARY | ~2019-11-17 | XMS | Encounter Summary ---
Demographics + + + | Address | [address] | | | [place] [address] | + + + | Home Phone [...] + + | 05/06/ | Telephone | [facility] INTER[facility] | Alanis, | Other | | 2017 | | MEDICINE [address] [place] [address] | MD Petrona | | | | | [facility] | [address] [place] [address] | | | | | [place] [address] | [place] [address] | | | | | [phone] | [phone] | | | | | | | [...] | | | | | [place] [address] | | | | | | [phone] | | | | | | | | +--------+---------+ + + + | 12/20/ | Office | Otolaryngology | Ulysses Genao MD | | | 2019 | Visit | | [address] | | | | | | [address] [place], | | | | | | [place] [address] | | | | | | [phone] | | | | | | | | +--------+---------+ + + + | 02/15/ | Office | Internal Medicine | Alanis, | | | 2019 | Visit | | MD Petrona | | | | | | [address] | | | | | | [place] [address] | | | | | | [phone] | | | | | | | | +--------+---------+ + + + documented as of this encounter Visit Diagnoses Not on filedocumented in this encounter"
--- OUTSIDE RECORDS SUMMARY | ~2019-11-17 | XMS | Encounter Summary ---
Demographics + + + | Address | [address] | | | [place] [address] | + + + | Home Phone [...] Team Providers + +------+ + | Care Milieu Therapist Name | Role | Phone | [...] of this encounter Progress Notes Interface, Power Shovel Engineer In - 01/03/2006 3:02 AM PDTCLINIC DATE: 11/01/2002 NEUROMUSCULAR CLINIC PRIMARY CARE PROVIDER: Pedrito Gutierrez M.D. OTHER PHYSICIAN: Issac Meeks M.D., [facility] Endocrinology. PROBLEM LIST 1. Fibromyalgia [...] fatigue. She reportedly has begun walking with [place] crutches much of the time due to [...] Irving Pete M.D. Neurology/Neuromuscular Fellow TBD / [id number] / [id number] / [id number] / [id number] C: 11/10/2002 BRAD cc: Issac Meeks M.D. [facility] Endocrinology Pedrito Gutierrez M.D. [address] [place], [place] [id number] signed by Interface, Power Shovel Engineer In at 01/03/2006 3:0 2 AM PDTdocumented in this encounter Plan of Treatment Not on filedocumented as of this encounter Visit Diagnoses Not on filedocumented in this encounter
--- OUTSIDE RECORDS SUMMARY | ~2019-11-17 | XMS | Encounter Summary ---
Demographics + + + | Address | [address] | | | [place] [address] | + + + | Home Phone [...] Providers + +------+ + | Care Cinder Block Maker Name | Role | Phone | [...] | | | | | Encounter | [place] | | | | | for | [address] | [address] | | | | | long-term | | Phone: | | | | | (current) | | [phone] | | | | | use of other | | Fax: | | | | | medications | | [phone] | | | | | LBP (low [...] | Diagnoses | Paco, | Fili Pt Stack Supervisor | | | | Therapy | Myalgia and | Rosi T, ANP | Ch[facility] | | | | | myositis, | [address] | | | | | unspecified | [address] | Mailcode: | | | | | LBP (low | [place], [place] | [facility] | | | | | back pain) | [address] | for Health | | | | | Chronic | | and Healing, | | | | | shoulder | | [address] | | | | | pain Muscle | | [place], [place] | | | | | strain | | [address] | | | | | Radicular | | Phone: | | | | | pain in left | | [phone] | | | | | arm Neck [...] | | pain | [place], [place] | [place], [place] | | | | | | [address] | [address] | | | | | | Phone: | | | | | | | [phone] | | | | | | | Fax: | | | | | | | [phone] | | +--------+--------+ + + + + Encounter Details +--------+---------+ + + + | Date | Type | Department | Care Team | Description | +--------+---------+ + + + | 04/05/ | Office | [facility] Comprehensive | Rosi Antonio, | LBP (low back pain) | | 2012 | Visit | Pain Center at | ANP | (Primary Dx); | | | | [facility] | | Fibromyalgia | | | | [address] | | syndrome 729.1; | | | | Mailcode: CH15P | | Encounter for | | | | [facility] | | Long-Term (Current) | | | | and Healing, | | Use of Opioids; | | | | | | Chronic Bilateral | | | | Floor [place], [place] | | Shoulder Pain; | | | | [address] | | Muscle Strain hips; | | | | [phone] | | Radicular pain in | | [...] to discuss these treatment options. Consult to [facility] physical therapy: A supervised [...] you have questions or concerns. [facility] [address] Mail Code: [place] [address] documented in this encounter Progress Notes Rosi Antonio ANP - 04/05/2013 9:28 AM PDTFormatting of this note might be different fro m the original. [facility] Office Visit 04/05/2013 Belinda Meehan; ; : 1960 Ms. Meehan was referred for pain management consultation by Taqueria Raman NP [address] [place] [address] Chief Complaint Patient presents with New patient [...] to taper off gabapentin 2. Order for [facility] neurology Dr. Taniya Guerrero [...] Lit C[place] in [place] at the [facility] and had good relief [...] included: Epidural steroid injections she received in [place] and helped for a short time GROUND INTELLIGENCE OFFICER Brief Pain Inventory: (ten= worst possible pain [...] right knee Lumbar fusion 05/2008 & 2011 [id number] with bone spur removals Appendectomy Cholecystectomy section [...] Hives Mainly in the legs Clindamycin Codeine Hqifkui-Twheqzmixh-Zem-Caff Balance problems Fioricet W/Codeine (Uykybgenjb-Kclqlxaxwr-Paa-Cod) Keflex (Cephalexin) Morphine IM ( only in [facility]) made gut pain worse 08/27/06: Trial [...] part of today's visit the [facility] new patient questionnaire was [...] from your visits to the [facility] ? Don't know BP [...] Overview Note: Surgery 05/15/08 Dr Ricky Garnett [facility] to get operative reports Osteopenia [...] before her lumbar surgeries and recently in [place]. She has short-term relief from the se treatments. I would like her to return to see Dr. Murali Montero to discuss these treatment options. Consult to [facility] physical therapy: A supervised [...] is my privilege to be part of [facility] health care team. Pl ease free to contact me at any time if you have questions or concerns. I spent 30 minutes with the patient of which more than 50% was spent tdzjp-pm-ifwq in [facility] pain questionnaire, medical record, consultation, discussion, addressing questions and counselling/education. [facility] Callum Kovacs Mail Code: [place] [id number] mith, Maris Lopez MA - 04/05/2013 8:25 [...]
--- OUTSIDE RECORDS SUMMARY | ~2019-11-17 | XMS | Encounter Summary ---
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 Diagnosis: Condon I: 1. (296.32) Major depressive disorder, recurrent, moderate. 2. (309.24) Adjustment disorder with anxiety. 3. 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 Condon II: Deferred Condon III: abdominal pain, migraine headache, low back pain. Condon IV: low finances Condon V: GAF 55-60 Plan: Return in 3 months. Check mood, knee surgery, pacing, relaxation, activity, distraction. Continue cognitive/behavioral therapy. Discuss need for further sessions. Total time spent with patient was approximately 45 minutes. LUKASZ CHARLES PHD [facility] [address] [facility], 4th [place] [address] documented in this encount er Plan of [...]
--- OUTSIDE RECORDS SUMMARY | ~2019-11-17 | XMS | Encounter Summary ---
Demographics + + + | Address | [address] | | | [place] [address] | + + + | Home Phone [...] Providers + +------+ + | Care Door Liner Helper Name | Role | Phone | [...] | | | | sciatica | [place] [address] | | | | | | S/P lumbar | Phone: | | | | | | fusion | [phone] | | | | | | Sacroiliac | Fax: | | | | | | inflammation | [phone] | | | | | | (HCC) [...] | | | | sciatica | [place] [address] | [address] | | | | | S/P lumbar | Phone: | Phone: | | | | | fusion | [phone] | [phone] | | | | | Sacroiliac | Fax: | Fax: | | | | | inflammation | [phone] | [phone] | | | | | ([facility]) | | | | | | | [...] | | sciatica | [address] | [address] Phone: | | | | | | [place], | [phone] | | | | | | [place] | Fax: | | | | | | [address] | [phone] | | | | | | Phone: | | | | | | | [phone] | | | | | | | Fax: | | | | | | | [phone] | | +--------+ + + + + + Encounter Details +--------+---------+ + + + | Date | Type | Department | Care Team | Description | +--------+---------+ + + + | 09/23/ | Office | [facility] | Lencho Rivas, | Sacroiliac | | 2019 | Visit | PHYSIATRY [address] | PA-C [address] | inflammation (HCC) | | | | [address] | [address] [place] | (Primary Dx); Acute | | | | [place] | [place] [address] | midline low back | | | | [address] | [phone] | pain with bilateral | | | | [phone] | | sciatica; S/P lumbar | | [...] 9:20 AM PDTReferral to michelle james ([facility]). Referral to massage therapy. [...] press against a nerve. Date Last Reviewed: 08/13/201719995373-9481 [employer]. [address] [place] [address]. All [facility] ts reserved. This information is not intended as a substitute for professional medical care. Always follow your healthcare professional's instructions. documented in this encounter Progress Notes Lencho Rivas PA-C - 09/23/2018 9:20 AM PDTFormatting of this note might be different fro m the original. Lencho Rivas PA-C [address] [place] [address], [address] [place] [address] FAX: CHIEF COMPLAINT: Chief Complaint Patient presents [...] Nonalcoholic hepatosteatosis Obesity Opioid dependence ([facility]) Orthostatic hypotension OLIVER (obstructive sleep apnea) Osteoarthritis, generalized Osteopenia Osteoporosis Palpitations Peripheral neuropathy Rheumatoid arthritis ([facility]) Right arm pain 01/04/2015 RLS (restless legs [...] Surgeon: Luther Brito MD; Location: [facility] MEDICAL PROCEDURE UNIT DILATION AND CURETTAGE OF UTERUS ELBOW SURGERY FINGER TRIGGER RELEASE 2003 FINGER TRIGGER RELEASE 2010 GASTRIC BYPASS SURGERY 2004 HYSTERECTOMY 05/14/1980 JOINT REPLACEMENT Bilateral 2007 2008 KNEE ARTHROSCOPY 2005 LAPAROSCOPY 01/27/2015 LAPAROTOMY 2008 ROTATOR CUFF REPAIR 2005 SPINE SURGERY TONSILLECTOMY 1964 UPPER GASTROINTESTINAL ENDOSCOPY N/A 12/18/2017 Procedure: EGD; Surgeon: Luther Brito MD; Location: [facility] MEDICAL PROCEDURE UNIT CURRENT MEDICATIONS: Current [...] (See Comments) Confused and questionable for seizures Tozzwapvrr-Bifu-Jdgdtbxf Hives and Rash Cephalexin Hives Ciprofloxacin Hives [...] has no apparent deficits with short or pet resort concierge memory. Cranial nerves 2-12 appear grossly intact. [...] currently enrolled in a pain clinic in [place], [place]. 5) Patient will follow up with [...] | | | | | [place] [address] | | | | | | [phone] | | | | | | | | +--------+---------+ + + + | 12/20/ | Office | Otolaryngology | Ulysses Genao MD | | | 2019 | Visit | | [address] [place] | | | | | | [address] [place], | | | | | | [place] [address] | | | | | | [phone] | | | | | | | | +--------+---------+ + + + | 02/15/ | Office | Internal Medicine | Alanis, | | | 2019 | Visit | | MD Petrona | | | | | | [address] [place] | | | | | | [place] [address] | | | | | | [phone] | | | | | | | [...]
--- OUTSIDE RECORDS SUMMARY | ~2019-11-17 | XMS | Encounter Summary ---
Demographics + + + | Address | [address] | | | [place] [address] | + + + | Home Phone [...] | | | | | | | [place], [place] | | | | | | | [address] | | | | | | | Phone: | | | | | | | [phone] | | | | | | | Fax: | | | | | | | [phone] | +--------+--------+ + + + + Encounter Details +--------+---------+ + + + | Date | Type | Department | Care Team | Description | +--------+---------+ + + + | 01/05/ | Office | [facility] | Eliezer Ruano, | Follow-Up | | 2007 | Visit | Center [address] | [address] [facility] | Examination | | | | Avjennifer Mailcode: CH4S | [address] | Following Surgery | | | | [facility] | [place], [place] | (Primary Dx) | | | | and Healing, | [address] | | | | | Building | [phone] | | | | | Floor [place], [place] | | | | | | [address] | | | | | | [phone] | | | +--------+---------+ + + + [...] plan of care. ELIEZER RUANO MD [facility] [address] [place] [address] And [facility], [address] [place] [address] Tejas Trevino - 01/05 1:54 PM PDTS: Pt is here one week postop lysis of adhesions. She is doing well. She i s still having some pain. PE: Midline incision closed with reshma. [place] removed. There was a small opening of [...]
--- OUTSIDE RECORDS SUMMARY | ~2019-11-17 | XMS | Encounter Summary ---
Demographics + + + | Address | [address] | | | [place] [address] | + + + | Home Phone [...] Providers + +------+ + | Care Chemical Compounder Helper Name | Role | Phone | [...] | | | [facility] | [place], [place] | | | | | [address] | [address] | | | | | [address] | [phone] | | | | | Physician's | | | | | | Pavilion, [facility] floor | | | | | | [place], [place] | | | | | | [address] | | | | | | [phone] | | | +--------+ + + + [...] by | | | | | | [facility] | | | | | | Regional Laboratory. | | | | + + + + + + + + | Specimen | + + | | + + + + + + + | Performing | Address | City/State/Zipcode | Phone Number | | Organization | | | | + + + + + | [facility] | [address] | [place] [address] | | | LABORATORY | | | [...] pg/mL | | | | | [facility] | | | | | | Laboratory. | | | | + + + + + + + + | Specimen | + + | | + + + + + + + | Performing | Address | City/State/Zipcode | Phone Number | | Organization | | | | + + + + + | [facility] | [address] | [place] [address] | | | LABORATORY | | | [...] [facility] | [address] | [place] [address] | | | PATHOLOGY | [address] | | | + + + + + | [facility] DEPARTMENT OF | [address] | [place] [address] | | | PATHOLOGY | [address] | | | + + + + + documented in this encounter Visit Diagnoses Not on filedocumented in this encounter"
--- OUTSIDE RECORDS SUMMARY | ~2019-11-17 | XMS | Encounter Summary ---
Demographics + + + | Address | [address] | | | [place] [address] | + + + | Home Phone [...] Providers + +------+ + | Care Director Medicare Sales Name | Role | Phone | [...] + + | 09/16/ | Telephone | [facility] | Alanis, | Results, Imaging | | 2018 | | MEDICINE [address] | MD [place]rona | | | | | [facility] | [address] [place] [address] | | | | | [place] [address] | [place] [address] | | | | | [phone] | [phone] | | | | | | | [...] | | | | | [place] [address] | | | | | | [phone] | | | | | | | | +--------+---------+ + + + | 12/20/ | Office | Otolaryngology | Ulysses Genao MD | | | 2019 | Visit | | [address] | | | | | | [address] [place], | | | | | | [place] [address] | | | | | | [phone] | | | | | | | | +--------+---------+ + + + | 02/15/ | Office | Internal Medicine | Alanis, | | | 2019 | Visit | | MD Petrona | | | | | | [address] [place] [address] [address] | | | | | | [place] [address] | | | | | | [phone] | | | | | | | | +--------+---------+ + + + documented as of this encounter Visit Diagnoses Not on filedocumented in this encounter"
--- OUTSIDE RECORDS SUMMARY | ~2019-11-17 | XMS | Encounter Summary ---
[...] Providers + +------+ + | Care Design Technician Name | Role | Phone [...] + + | 03/19/ | Telephone | [facility] Division of | Carlos Arreola, | Erroneous Encounter | | 2005 | | Gastroenterology/Hep | [address] | - Disregard (ERROR) | | | | atology [address] | [address] | | | | | [address] | [place] [address] | | | | | Mailcode: PV310 | [phone] | | | | | Physician[facility] Pavilion | | | | | | [address] | | | | | | [place], [place] | | | | | | [address] | | | | | | [phone] | | | +--------+ + + + [...]
[~2019-11-17 21:03] MED LIST changes: +PROMETHAZINE HC25 MG PR
--- OUTSIDE RECORDS SUMMARY | 2019-11-17 21:06 | XMS ---
PreManage Notification: NAFISA GALARZA [employer] President Events No recent Security Events currently on file CRITERIA MET - Group Notification - [facility] - Has Care Guidelines - PDMP CARE PROVIDERS [place], Internal Medicine Current [place] PHONE: [phone] Tania Richards Billposter/Finish Off Operator 08/13/2016-Current PHONE: [phone] Daniella has no Care Guidelines for this patient. Care History Medical/Surgical 12/14/2018 [facility] HISTORY:\T\nbsp; SPINE SURGERY - PAIN MEDICATIONS THROUGH MIGUEL ÁNEGL [place], [place] ([phone]) HX: MENIERE\T\#39; S SYNDROME (HAS RX FOR MECLIZINE THROUGH PCP DR CLEMENCIA FENTON); MIGRAINES;OSTEOARTHRITIS;SCOLIOSIS;DUMPING SYNDROME;IBS CHRONIC PAIN. 11/10/2018 [facility] - CHW CONTACTED PATIENT. PATIENT HAS A PCP APT WITH PCP OFFICE ON 11/15/18 FOR ER FOLLOW UP. Mona VISIT COUNT (12 MO.) 5 DAVID Martin TOTAL 5 NOTE: Visits indicate total known visits. ED/UCC VISIT TRACKING (12 MO.) 11/17/2019 21:04 [facility] [place] TYPE: Emergency COMPLAINT: - LEFT ANKLE PAIN 10/17/2019 10:08 [facility] [place] TYPE: Emergency COMPLAINT: - FLU SYMPTOMS DIAGNOSES: - Personal history of nicotine dependence - Allergy status to narcotic agent status - Nausea with vomiting, unspecified - Allergy status to analgesic agent status - Other intermediate school teacher (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 - Vomiting, unspecified - Epigastric pain - Allergy status to sulfonamides status - Allergy status to penicillin - Allergy status to other antibiotic agents status - Migraine, unspecified, not intractable, without status migrai 10/16/2019 03:00 [facility]ID Shaw [place] TYPE: Emergency COMPLAINT: - FOOT PAIN DIAGNOSES: - Personal history of nicotine dependence - Allergy status to penicillin - Allergy status to narcotic agent status - Other intermediate school teacher (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 - Allergy status to sulfonamides status - Cellulitis of left lower limb - Allergy status to other antibiotic agents status - Migraine, unspecified, not intractable, without status migrai 06/25/2019 21:38 [facility] [place] TYPE: Emergency COMPLAINT: - RIGHT SHOULD/ARM PAIN DIAGNOSES: - Allergy status to sulfonamides status - Other correction (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 - Allergy status to [...] pain - Dizziness and giddiness - Other correction (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 - Allergy status to narcotic agent status - Fall on same level, unspecified, initial encounter - Allergy status to penicillin - Allergy status to analgesic agent status - Allergy status to sulfonamides status - Allergy status to other drugs, medicaments and biological sub - Acquired absence of other specified parts of digestive tract - Personal history of nicotine dependence INPATIENT VISIT TRACKING (12 MO.) No inpatient visits to display in this time frame [email or web address]
[2019-11-17] MEDS ORDERED: HYDROCODON-ACE1 EAC8 PO (21:31)
[2019-11-17] MEDS ORDERED: VENTOLIN HFA18 GM INH (21:33)
[2019-11-17] MEDS ORDERED: IMITREX25 MG PO (21:35)
== END 2019-11-17 22:25 | disposition home or self-care (01) ==
LOC: ED 21:03
DX: S93.402A Sprain of unspecified ligament of left ankle, initial encounter (principal); G43.909 Migraine, unspecified, not intractable, without status migrainosus; Z87.891 Personal history of nicotine dependence; Z88.1 Allergy status to other antibiotic agents; Z88.5 Allergy status to narcotic agent; Z88.0 Allergy status to penicillin; Z88.2 Allergy status to sulfonamides; Z88.8 Allergy status to other drugs, medicaments and biological substances; Z79.899 Other long term (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; W01.0XXA Fall on same level from slipping, tripping and stumbling without subsequent striking against object, initial encounter
CPT/HCPCS: 73610; 99283-25

== ENCOUNTER 2019-12-13 19:11 | Emergency (ER) | payer MEDICARE, OTHER ==
[~2019-12-13] VITALS: Ht 167.6 cm; Wt 91.6 kg
--- OUTSIDE RECORDS SUMMARY | ~2019-12-13 | XMS | Encounter Summary ---
Demographics + + + | Address | [address] | | | [place] [address] | + + + | Home Phone | | + + + | Preferred Language | Unknown | + + + | Marital Status | | + + + | Zoroastrian Affiliation | 1001 | + + + | Race | Unknown | + + + | Ethnic Group | Unknown | + + + Author + + + | Author | [facility] | | | and [place] | + + + | Organization | [facility] | | | and [place] | + + + | Address | Unknown | + + + | Phone | Unavailable | + + + Support + + +---------+ + | Name | Relationship | Address | Phone | + + +---------+ + | Adriana Caregiver | ECON | Unknown | | | Rudy | | | | + + +---------+ + | Sree Wells | ECON | Unknown | | + + +---------+ + | Marco Antonio Wells | ECON | Unknown | | + + +---------+ + Care Team Providers + +------+ + | Care Pigment Pumper Name | Role | Phone | + +------+ + | Petrona Thapa | PCP | | | MD | | | + +------+ + Reason for Visit + + + | Reason | Comments | + + + | Injections | b 12 | + + + Encounter Details +--------+ + + + + | Date | Type | Department | Care Team | Description | +--------+ + + + + | 06/16/ | Clinical | [facility] | Alanis, | B12 deficiency | | 2020 | Support | MEDICINE [address] | MD Petrona | (Primary Dx) | | | | [place], | [address] [facility] | | | | | [place] [address] | [place] [address] | | | | | [phone] | [phone] | | | | | | | | +--------+ + + + + Social History + + + +--------+ + | Tobacco Use | Types | Packs/Day | Years | Date | | | | | Used | | + + + +--------+ + | Former Smoker | Cigarettes | 0.5 | 30 | Quit: 04/15/2014 | + + + +--------+ + + +---+---+---+ | Smokeless Tobacco: | | | | | Never Used | | | | + +---+---+---+ + + | Comments: stopped smoking | + + + + +---------+ + | Alcohol Use | Drinks/Week | oz/Week | Comments | + + +---------+ + | No | 0 Standard drinks | 0.0 | | | | or equivalent | | | + + +---------+ + + + + | Sex Assigned at | Date Recorded | | | | + + + | Not on file | | + + + documented as of this encounter Progress Shanta Nguyen Medical Assistant - 06/16/2019 10:30 AM PSTFormatting of this note calderon ht be different from the original. Administrations This Visit cyanocobalamin (VITAMIN B-12) injection 1,000 mcg Admin Date 06/16/2019 Action Given Dose 1000 mcg Route Intramuscular Administered By Destiney Ybarra Patient tolerated injection well, advised to schedule Nurse visit appointment for July for a B12 shot. documented in this encounter Plan of Treatment +--------+---------+ + + + | Date | Type | Specialty | Care Team | Description | +--------+---------+ + + + | 12/20/ | Office | Audiology | Elisabet Munson MS | | | 2019 | Visit | | [facility] [address] | | | | | | [address] [place] | | | | | | [place] [address] | | | | | | [phone] | | | | | | | | +--------+---------+ + + + | 12/20/ | Office | Otolaryngology | Ulysses Genao MD | | | 2019 | Visit | | [address] | | | | | | [address] [place] | | | | | | [place] [address] | | | | | | [phone] | | | | | | | | +--------+---------+ + + + | 02/15/ | Office | Internal Medicine | Alanis, | | | 2019 | Visit | | MD [place] | | | | | | [address] [place] | | | | | | [place] [address] | | | | | | [phone] | | | | | | | | +--------+---------+ + + + documented as of this encounter Visit Diagnoses + + | Diagnosis | + + | B12 deficiency - Primary Other B-complex deficiencies | + + documented in this encounter Administered Medications + +--------+ +--------+------+ + | Medication Order | MAR | Action | Dose | Rate | Site | | | Action | Date | | | | + +--------+ +--------+------+ + | cyanocobalamin (VITAMIN B-12) | Given | 11/15/19 | 1,000 | | Deltoid- | | injection 1,000 mcg 1,000 mcg, | | 20 9:50 | mcg | | Left | | Intramuscular, EVERY 30 DAYS, | | AM PDT | | | | | First dose on [facility] 10/15/17 at 1215 | | | | | | + +--------+ +--------+------+ + +-------+ +--------+---+ + | Given | 09/15/19 | 1,000 | | Deltoid- | | | 20 10:23 | mcg | | Right | | | AM PDT | | | | +-------+ +--------+---+ + | Given | 08/15/19 | 1,000 | | Deltoid- | | | 20 9:20 | mcg | | Right | | | AM PST | | | | +-------+ +--------+---+ + +---+---+ | | | +---+---+ documented in this encounter"
--- OUTSIDE RECORDS SUMMARY | ~2019-12-13 | XMS | Encounter Summary ---
Demographics + + + | Address | [address] | | | [place] [address] | + + + | Home Phone | | + + + | Preferred Language | Unknown | + + + | Marital Status | | + + + | Temple Affiliation | 1001 | + + + [...] Team Providers + +------+ + | Care Power Originator Name | Role | Phone | + +------+ + | Petrona Thapa | PCP | | | MD | | | + +------+ + Reason for Visit + + + | Reason | Comments | + + + | Dizziness | | + + + Evaluate & Treat (Routine) +--------+--------+ + + + + | Status | Reason | Specialty | Diagnoses / | Referred By | Referred To | | | | | Procedures | Contact | Contact | +--------+--------+ + + + + | Closed | | Audiology | Diagnoses | Genao, | Jeimy, | | | | | Vertigo of | Ulysses Lau MD | [place], [place] | | | | | central | [address] | CCC-A [address] | | | | | origin | [address] | [address] | | | | | VNG/FAMILYCA | [place] | [address] [place] | | | | | RE/Emmy | [place], [place] | [place], [place] | | | | | Procedures | [address] | [address] Phone: | | | | | [place] | Phone: | [phone] | | | | | SPONTANEOUS | [phone] | Fax: | | | | | [facility]AG[facility] | Fax: | [phone] | | | | | TEST [place] | [phone] | | | | | | POSITIONAL | | | | | | | [facility]STAGMUS | | | | | | | TEST NV | | | | | | | CALORIC | | | | | | | VESTIBULAR | | | | | | | TEST NV | | | | | | | OPTOKINETIC | | | | | | | [facility]AGMUS | | | | | | | TEST NV | | | | | | | OSCILLATING | | | | | | | TRACKING | | | | | | | TEST NV | | | | | | | SUPPLEMENTAL | | | | | | | ELECTRICAL | | | | | | | TEST NV | | | | | | | VESTIBULAR | | | | | | | EVAL NYSTAG | | | | | | | FOVL&PERPH | | | | | | | STIM OSCIL | | | | | | | TRACKING | | | | | | | OFFICE VISIT | | | | | | | REGULAR | | | +--------+--------+ + + + + Encounter Details +--------+---------+ + + + | Date | Type | Department | Care Team | Description | +--------+---------+ + + + | 12/07/ | Office | [facility] | [place]isabet [place], [place] | Vertigo of central | | 2015 | Visit | AUDIOLOGY AND | [facility] [address] | origin, unspecified | | | | [facility] | [address] [facility] | laterality (Primary | | | | [address] | [place] [address] | Dx) | | | | [facility] | [phone] | | | | | [place] [address] | | | | | | [phone] | | | +--------+---------+ + + + [...] + documented as of this encounter Progress Notes Jeimy Elisabet, CCC-A - 12/07/2014 2:12 PM PDTReferring Provider: Ulysses Genao M.D. VNG testing revealed abnormal oculomotor subtests. Dora De La Rosa pike revealed nystagmus when in the left head hanging position. Calorics revealed unilateral weakness on the right side and significant directional prepond erance. Impression: Central Vertigo Follow-up care with Dr. Genao, Sr. Thank you. documented in thi s encounter Plan of Treatment +--------+---------+ + + + | Date | Type | Specialty | Care Team | Description | +--------+---------+ + + + | 12/20/ | Office | Audiology | Elisabet Munson [place] | | | 2019 | Visit | | [facility] [address] | | | | | | [address] [place] | | | | | | [place] [address] | | | | | | [phone] | | | | | | | | +--------+---------+ + + + | 12/20/ | Office | Otolaryngology | Ulysses Genao MD | | | 2019 | Visit | | [address] | | | | | | [address] [place] | | | | | | [place] [address] | | | | | | [phone] | | | | | | | | +--------+---------+ + + + | 02/15/ | Office | Internal Medicine | Emmy-Tajti, | | | 2019 | Visit | | MD Petrona | | | | | | [address] | | | | | | [place] [address] | | | | | | [phone] | | | | | | | | +--------+---------+ + + + documented as of this encounter Procedures + +--------+ + + + | Procedure Name | Priori | Date/Time | Associated Diagnosis | Comments | | | ty | | | | + +--------+ + + + | DIAGNOSTIC REPORT - | | 12/07/2014 | | | | EXTERNAL SCAN | | 12:00 AM | | | | | | PDT | | | + +--------+ + + + documented in this encounter Visit Diagnoses + + | Diagnosis | + + | Vertigo of central origin, unspecified laterality - Primary | + + documented in this encounter"
--- OUTSIDE RECORDS SUMMARY | ~2019-12-13 | XMS | Encounter Summary ---
Demographics + + + | Address | [address] | | | [place] [address] | + + + | Home Phone | | + + + | Preferred Language | Unknown | + + + | Marital Status | Single | + + + | Yazdanism Affiliation | ADV | + + + | Race | White | + + + | Ethnic Group | Not or | + + + Author + + + | Author | [facility] | + + + | Organization | [facility] | + + + | [...] Team Providers + +------+ + | Care Head Waiter/Waitress Banquet Name | Role | Phone | + +------+ + | Pedrito Gutierrez MD | PCP | | + +------+ + Reason for Visit +--------+ + | Reason | Comments | +--------+ + | [place] | | +--------+ + Encounter Details +--------+ + + + + | Date | Type | Department | Care Team | Description | +--------+ + + + + | 01/05/ | Telephone | Orthopaedics at | [place], [place], | [place] | | 2008 | | [address] [address] | | | | | | [address] | | | | | | Mailcode: [id number] | | | | | | [facility] | | | | | | [place], [place] | | | | | | [address] | | | | | | [phone] | | | +--------+ + + + [...]
--- OUTSIDE RECORDS SUMMARY | ~2019-12-13 | XMS | Encounter Summary ---
Demographics + + + | Address | [address] | | | [place] [address] | + + + | Home Phone | | + + + | Preferred Language | Unknown | + + + | Marital Status | Single | + + + | Buddhist Affiliation | ADV | + + + | Race | White | + + + | Ethnic Group | Not or | + + + Author + + + | Author | [facility] | + + + | Organization | [facility] | + + + | [...] Team Providers + +------+ + | Care Gauge And Weigh Machine Adjuster Name | Role | Phone | + +------+ + | Pedrito Gutierrez MD | PCP | | + +------+ + Encounter Details +--------+ + + + + | Date | Type | Department | Care Team | Description | +--------+ + + + + | 12/24/ | Telephone | General Surgery | Chris Padgett, | | | 2005 | | [address]ric [address] | [address] | | | | | [address] | [address] | | | | | Mailcode: [id number] | [place], [place] | | | | | [facility] | [address] | | | | | [address] [place], [place] | [phone] | | | | | [address] | | | | | | [phone] | | | +--------+ + + + [...]
--- OUTSIDE RECORDS SUMMARY | ~2019-12-13 | XMS | Encounter Summary ---
Demographics + + + | Address | [address] | | | [place] [address] | + + + | Home Phone | | + + + | Preferred Language | Unknown | + + + | Marital Status | Single | + + + | Rastafari Affiliation | ADV | + + + | Race | White | + + + | Ethnic Group | Not or | + + + Author + + + | Organization | Unknown | + + + | Address | [...] Team Providers + +------+ + | Care Aircraft Cleaning Supervisor Name | Role | Phone | + +------+ + | Sulaiman Carrera MD | PCP | | + +------+ + Encounter Details +--------+ + + + + | Date | Type | Department | Care Team | Description | +--------+ + + + + | 08/02/ | Abstract | | | | | 2005 | | | | | +--------+ + [...]
--- OUTSIDE RECORDS SUMMARY | ~2019-12-13 | XMS | Encounter Summary ---
Demographics + + + | Address | [address] | | | [place] [address] | + + + | Home Phone | | + + + | Preferred Language | Unknown | + + + | Marital Status | Single | + + + | Buddhism Affiliation | ADV | + + + [...] Team Providers + +------+ + | Care Manager English Name | Role | Phone | + +------+ + PCP | Unavailable | + +------+ + Encounter Details +--------+ + + + + | Date | Type | Department | Care Team | Description | +--------+ + + + + | 05/24/ | Office | | Note, Outpatient | Progress Note | | 2002 | Visit-Trans | | Clinic | | | | cribed | | | | +--------+ + + [...] documented as of this encounter Progress Notes Interface, Clinical Training Coordinator In - 01/12/2006 1:16 AM PDTCLINIC DATE: 05/24/2002 [facility] CARE PROVIDER: Pedrito Gutierrez M.D., [place], [place]. REFERRING PROVIDER : Issac Meeks M.D., [facility] Endocrinology. REASON FOR CONSULTATION: Dr. Meeks recently saw this patient for secondary hyperparathyroidism. On his laboratory evaluation, she was found to have elevated muscle enzymes. Due to a family history of muscle problems, he referred her to our clinic to evaluate for any evidence of a familial myopathy. HISTORY OF PRESENT ILLNESS: The patient is a 42-year-old woman. She reportedly began having muscle problems approximately 10 years ago. She reports that prior to this, she did not have muscle difficulties. They began when she awoke one day with severe pain in her muscles and her joints. She was seen by Emergency Room physician by her report and diagnosed her with a muscle disease but did not tell her what type. She reportedly had pain in her muscles which was lancinating and "nail like" for about 2 weeks. She reports her urine was normal color during this time, but ever since then, she has had diffuse muscle achiness, tenderness, and generalized fatigue. She has had 4 to 5 episodes since then in which her muscles and joints became severely painful. These spells have lasted anywhere from 4 days to 3 weeks. She has never noted any specific exacerbating factor whatsoever. Narcotic analgesics have been the only alleviating factor which has been effective. In between these attacks as mentioned, she has constant discomfort in her muscles and joints and muscles are always very tender. She also has frequent muscle spasms. She has very severe back pain which is almost constant but particularly severe when she tries to walk. She occasionally has a burning feeling in her thighs. She exercised very strenuously recently and noticed that her muscles are very sore for a number of days afterwards but has not noticed in the past that exercises are major exacerbator of the muscle tenderness or the pain. In addition to the above, the patient has had very bothersome tingling paraesthesias on the palm of both hands affecting primarily the first, second, and third fingers. She has some mild associated weakness in her steam trap man. She was told she had carpal tunnel syndrome many years ago and wears a brace at night with only partial improvement. She has no other complaints at this time. PAST MEDICAL HISTORY 1. Morbid obesity. 2. Hypertension. 3. 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 4. History of migraines. 5. Hypercholesterolemia. 6. Impaired glucose tolerance. 7. Obstructive sleep apnea, on CPAP. 8. Reported history of heart attack. 9. Gastroesophageal reflux disease. 10. History of depression and anxiety. 11. History of secondary hyperparathyroidism. MEDICATIONS: Inderal, Flexeril, ibuprofen, Axid, Darvocet, Lexapro, Phenergan, and Neurontin. ALLERGIES: CODEINE, PENICILLIN, KEFLEX, ASPIRIN, AND LATEX. FAMILY HISTORY: There is a striking family history on the maternal side of "fibromyalgia." Apparently her mother, her mother's brother, and two of her mother's sisters as well as her mother's mother and a number of her sisters all apparently had fibromyalgia. Her father when the patient was very young in a car accident. She does not know anything about his health. She has 5 siblings, 4 sisters, and 1 brother, one of the sisters has similar symptoms to our patient. The patient has 2 children, one has Henoch-Schonlein purpura and secondary renal failure. SOCIAL HISTORY: The patient is an active cigarette smoker. She does not drink or use drugs. 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 She is applying for disability compensation. She lives in [facility] and is currently undergoing a divorce. REVIEW OF SYSTEMS: A 10-point review of systems was as outlined in the patient intake form. Pertinent positives mentioned above. PHYSICAL EXAMINATION VITAL SIGNS: Weight 318 pounds, blood pressure 106/68, pulse 72, and respirations 16. GENERAL: The patient is an obese middle-aged female. She is awake, alert, and oriented, and in no acute distress. HEENT: No outward signs of trauma. Oropharynx is moist. She has a pale optic disc on the left, otherwise normal fundi. CARDIAC: Regular rate and rhythm without murmur. LUNGS: Clear to auscultation bilaterally. ABDOMEN: Soft and nontender. EXTREMITIES: Warm without edema. NEUROLOGICAL: Mental status: Speech is fluent and articulate. Orientation is full. Attention, concentration, memory, and fund of knowledge appear to be intact. Mood is melancholic. Affect is somewhat flat. Cranial nerves: Visual payan are full in the right eye. She is blind in the left eye. She has an afferent pupillary defect on the left. Extraocular movements are full. Visual acuity is intact in the right eye with correction. Facial sensation and strength are intact. Hearing is intact to finger rub. Palate and tongue movements are normal. Shoulder shrug is symmetric. Motor: The patient has normal muscle bulk and tone throughout. Her muscles are diffusely tender to palpation. She has multiple positive fibromyalgia trigger points with negative control points. Her muscle strength, however, is fully 5/5 and symmetric proximally and distally throughout with the exception of possibly some very slight weakness of the thenar muscles in both hands. There is, however, dramatic giveaway weakness in all muscle sampled after the patient is able to give a full brief effort. Deep tendon reflexes are 2/4 and symmetric at the biceps, triceps, brachioradialis, patella, and Achilles. Sensation is intact to light touch, pinprick, temperature, vibration, and position sense throughout. Coordination: Fine finger movements, vwztoa-zg-nlpa, rapid alternating movements, and lwmd-bq-ncso maneuvers are intact though asuyzz-ys-jncy is limited by poor depth perception due to monocular blindness. Gait: Casual gait. Heel walking and toe walking are normal. Tandem walk is minimally unstable. Balance: Romberg's test is negative but with significant sway. LABORATORY DATA: The patient had a random CK in December 2001 in 700s but then a random repeat CK a few weeks ago was 80. A number of times, she has had transaminases in approximately twice normal range in the presence of normal liver function test otherwise. Other labs include normal chemistries, homocystine, and hemoglobin A1c in October 2001. The prior February 2001, she had had a normal TSH, and she had normal transaminases at that time. She reportedly had an MRI scan of her brain 3 or 4 years ago at the time of her blindness on the left which she reports was reportedly normal. I did a detailed electromyography and nerve conduction studies yesterday in our laboratory. There was no electrophysiologic evidence of myopathy seen in proximal or distal muscles sampled. There was no evidence of neuropathic process either other than electrophysiologically significant bilateral median nerve entrapments at the wrist. IMPPRESSION 1. The patient meets the clinical diagnostic criteria for fibromyalgia and chronic fatigue syndrome. 2. I am unable at this time to rule out the possibility that there may be an underlying myopathy in addition to a fibromyalgia. 3. The concerning evidence is this possibly autosomal dominant family history of similar condition and a transient elevation of muscle enzymes. A random CK in 700s can be a normal finding if someone has exercised strenuously recently especially someone as large as our patient, but the patient denied any knowledge of such; however, in the presence of a normal electromyography and a recent repeat normal CK, it is entirely possible that this condition truly is just fibromyalgia and that the patient does not suffer from a hereditary myopathy. 4. 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 RECOMMENDATIONS 1. For the fibromyalgia, the only proven therapy is physical therapy combined with nonsteroidal antiinflammatory medications, therefore I recommend Dr. Gutierrez refer the patient to a local physical therapist for strength and endurance training in combination with continued treatment with nonsteroidals as tolerated. 2. The patient is to report to the nearest Emergency Room immediately if she experiences the severe muscle pain again, and I have asked her to obtain a CK at that time and have the results faxed to me. If she indeed suffers from some sort of metabolic myopathy in which she has intermittent muscle breakdown, perhaps that would provide the evidence that we would need to proceed with further investigations. 3. I recommend Dr. Gutierrez refer the patient for bilateral surgical carpal tunnel release considering her failure with conservative therapy. 4. I will see the patient back in this clinic in 6 months or sooner if needed We can consider rechecking her muscle enzymes at that time and talk about any further diagnostic testing. If the patient is found again to have dramatically elevated muscle enzymes, we may need to think about doing a muscle biopsy and proceeding with metabolic studies. Total visit length was 1 hour, the majority of which was spent in counseling. Irving Pete M.D. Neurology/Neuromuscular Fellow [employer] / [id number] / [id number] / [id number] / cc: Issac Meeks M.D. [facility] Endocrinology Pedrito Gutierrez M.D. [address] [place] [id number] signed by Interface, Clinical Training Coordinator In at 01/12/2006 1:1 6 AM PDTdocumented in this encounter Plan of Treatment Not on filedocumented as of this encounter Visit Diagnoses Not on filedocumented in this encounter
--- OUTSIDE RECORDS SUMMARY | ~2019-12-13 | XMS | Encounter Summary ---
Demographics + + + | Address | [address] | | | [place] [address] | + + + | Home Phone | | + + + | Preferred Language | Unknown | + + + | Marital Status | Single | + + + | Anglican Affiliation | ADV | + + + | Race | White | + + + | Ethnic Group | Not or | + + + Author + + + | Author | [facility] | + + + | Organization | [facility] | + + + | [...] Team Providers + +------+ + | Care Truck Rental Manager Name | Role | Phone | [...] | +--------+ + + + + | 06/09/ | Documentati | Kraig Turner | Beto Meeks MD | Lab Results | | 2012 | on | [facility] | [address] | | | | | [facility] | [place], [place] | | | | | [address] | [address] | | | | | [address] | [phone] | | | | | [facility] | | | | | | [facility], 1st floor | | | | | | [place], [place] | | | | | | [address] | | | | | | [phone] | | | +--------+ + + + + Social History + + + +--------+------+ | Tobacco Use | Types | Packs/Day | Years | Date | | | | | Used | | + + + +--------+------+ | Current Every Day | Cigarettes | 0.5 | 35 | | | Smoker | | | [...]
--- OUTSIDE RECORDS SUMMARY | ~2019-12-13 | XMS | Encounter Summary ---
Demographics + + + | Address | [address] | | | [place] [address] | + + + | Home Phone | | + + + | Preferred Language | Unknown | + + + | Marital Status | Single | + + + | Rastafarian Affiliation | ADV | + + + [...] Team Providers + +------+ + | Care Gear Design Engineer Name | Role | Phone | + +------+ + PCP | Unavailable | + +------+ + Encounter Details +--------+ + + + + | Date | Type | Department | Care Team | Description | +--------+ + + + + | 11/24/ | Discharge | | Summary, Discharge | D/C Summary ODDS | | 2004 | Summary-Tra | | | | | | nscribed | | | | +--------+ + + [...] + + documented as of this encounter Discharge Summaries Interface, Paint Roller Assembler In - 01/12/2005 6:32 AM PDTAdmission Date: 11/22/2003 Discharge Date: 11/25/2003 Staff Physician: Chris Padgett M.D. Principal Final Diagnosis: Morbid obesity. Additional Diagnoses: 1. Hypertension. 2. OLIVER. 3. GERD. 4. Glucose intolerance. 5. Chronic pain. Principal Procedure: Laparoscopic Zoe-en-Y gastric bypass. Additional Procedures: 1. PTOT. 2. Nutrition consultation. Reason for Admission: Surgery for morbid obesity. Hospital Course: The patient was admitted to the preoperative holding area and a final preoperative checklist was undertaken. She was taken to the operating room where she underwent an uneventful operation for gastric bypass. She recovered well and was transferred to the vasquez from PACU. Over the course of the following three days she was mobilized, her diet was advanced, her pain was well controlled with p.o. analgesics and she was discharged home in stable condition. Condition on Discharge: Stable. Discharge Medication(s): 1. Actigall 300 mg b.i.d. 2. Ranitidine 150 mg b.i.d. 3. Vitamin B12 1000 mcg subcutaneously q. month. 4. Colace 100 mg p.o. b.i.d. 5. Os Gerardo plus Vitamin D 500 mg b.i.d. 6. MVI q.d. 7. Heparin 5000 units subcutaneously b.i.d. times one week. 8. KCL 16 mEq q.d. Discharge Instruction(s): 1. Activity: Regular as tolerated with abdominal precautions. 2. Diet: Full liquids and non-concentrated sweets advancing to bariatric. 3. Follow up in two weeks with Dr. Chris Padgett. Murali Frederick M.D., D.M.D. Chris Padgett M.D. CLAIRE/carolynn A [id number] cc: documente d in this encounter Plan of Treatment Not on filedocumented as of this encounter Visit Diagnoses Not on filedocumented in this encounter"
--- OUTSIDE RECORDS SUMMARY | ~2019-12-13 | XMS | Encounter Summary ---
Demographics + + + | Address | [address] | | | [place] [address] | + + + | Home Phone | | + + + | Preferred Language | Unknown | + + + | Marital Status | Single | + + + | Anabaptism Affiliation | ADV | + + + | Race | White | + + + | Ethnic Group | Not or | + + + Author + + + | Author | [facility] | + + + | Organization | [facility] | + + + | Address [...] Team Providers + +------+ + | Care Application Integration Engineer Name | Role | Phone | + +------+ + | Pedrito Gutierrez MD | PCP | | + +------+ + Encounter Details +--------+ + + + + | Date | Type | Department | Care Team | Description | +--------+ + + + + | 03/08/ | Telephone | Orthopaedics at | [place], | | | 2008 | | [address] | | | | | | [address] | | | | | | Mailcode: [id number] | | | | | | [facility] | | | | | | [place], [place] | | | | | | [address] | | | | | | [phone] | | | +--------+ + + + [...] + + | 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
--- OUTSIDE RECORDS SUMMARY | ~2019-12-13 | XMS | Encounter Summary ---
Demographics + + + | Address | [address] | | | [place] [address] | + + + | Home Phone | | + + + | Preferred Language | Unknown | + + + | Marital Status | | + + + | Adventism Affiliation | [id number] | + + + | Race | Unknown | + + + | Ethnic Group | Unknown | + + + Author + + + | Author | [facility] | | | and [place] | + + + | Organization | [facility] | | | [...] Team Providers + +------+ + | Care Alteration Workroom Supervisor Name | Role | Phone | + +------+ + | Petrona Thapa | PCP | | | MD | | | + +------+ + Reason for Visit + +--------+ + | Reason | Onset | Comments | | | Date | | + +--------+ + | Medication Refill | 05/14/ | | | | 2018 | | + +--------+ + Encounter Details +--------+ + + + + | Date | Type | Department | Care Team | Description | +--------+ + + + + | 05/14/ | Telephone | [facility] | Erich Conley MD | Medication Refill | | 2018 | | MEDICINE [address] | [address] [place] [address] | | | | | [place], | [place] | | | | | [place] [address] | [phone] | | | | | [phone] | | | +--------+ + + + [...] this encounter Miscellaneous Notes Telephone Encounter - Erich Conley MD - 05/14/2019 6:33 PM PSTPhone call from patient r equesting refill on loperamide, currently takes 4 tabs in AM and 2 tabs in PM. Called Radha Cr-Ceasar and she has a refill available. Pharmacist stated that she called him to reques t a Lomotil refill, which is not currently listed on medication list. Advised refill of gui ramide; patient has appointment with Dr. Booth in 2 days. documented in this encounter Plan of Treatment +--------+---------+ + + + | Date | Type | Specialty | Care Team | Description | +--------+---------+ + + + | 12/20/ | Office | Audiology | DarioElisabet ramires MS | | | 2019 | Visit | | [facility] [address] | | | | | | [address] [place] | | | | | | [place] [address] | | | | | | [phone] | | | | | | | | +--------+---------+ + + + | 12/20/ | Office | Otolaryngology | Ulysses Genao MD | | | 2019 | Visit | | [address] | | | | | | [address] [place] | | | | | | [place] [address] | | | | | | [phone] | | | | | | | | +--------+---------+ + + + | 02/15/ | Office | Internal Medicine | Alanis, | | | 2019 | Visit | | MD Petrona | | | | | | [address] [place] | | | | | | [place] [address] | | | | | | [phone] | | | | | | | | +--------+---------+ + + + documented as of this encounter Visit Diagnoses Not on filedocumented in this encounter"
--- OUTSIDE RECORDS SUMMARY | ~2019-12-13 | XMS | Encounter Summary ---
Demographics + + + | Address | [address] | | | [place] [address] | + + + | Home Phone | | + + + | Preferred Language | Unknown | + + + | Marital Status | | + + + | Gnosticist Affiliation | [id number] | + + + [...] Team Providers + +------+ + | Care Accounting Consultant Name | Role | Phone | + +------+ + | Petrona Thapa | PCP | | | MD | | | + +------+ + Reason for Visit + +--------+ + | Reason | Onset | Comments | | | Date | | + +--------+ + | Lab Order | 08/14/ | | | | 2017 | | + +--------+ + Encounter Details +--------+ + + + + | Date | Type | Department | Care Team | Description | +--------+ + + + + | 08/14/ | Telephone | [facility] | Alanis, | Lab Order | | 2017 | | MEDICINE [address] [place] [address] | MD Petrona | | | | | [place], | [address] [facility] | | | | | [place] [address] | [place] [address] | | | | | [phone] | [phone] | | | | | | | [...] Telephone Encounter - Maggie Montoya LPN - 08/14/2017 2:39 PM PSTLab order faxed to [facility] [place]. Left message on patient's voicemail elephone Encounter - Petrona Thapa MD - 11:29 AM PSTOrder printed, please fax to [facility]. elephone Encounter - Adraina Cantor - 08/14/2017 10:56 AM PSTPatient called stating she is having surgery coming up on Thursday and will be discussing it with the doctor at her upcoming appointment on Thursday but the tristen kenisha just talked with the surgery center doing the surgery and they need her to have a BMP drawn. Patient would like to get that ordered as soon as possible and the patient would lik e it to be ordered for [facility] in [place] so she can go ahead and get it drawn so it can be ready and back in time for her upcoming surgery. Please call patient to gwen, . documented in t his encounter Plan of Treatment +--------+---------+ + + + | Date | Type | Specialty | Care Team | Description | +--------+---------+ + + + | 12/20/ | Office | Audiology | Elisabet Munson MS | | | 2019 | Visit | | [facility] [address] | | | | | | [address] [place] | | | | | | [place] [address] | | | | | | [phone] | | | | | | | | +--------+---------+ + + + | 12/20/ | Office | Otolaryngology | Ulysses Genao MD | | | 2019 | Visit | | [address] | | | | | | [address] [place] | | | | | | [place] [address] | | | | | | [phone] | | | | | | | | +--------+---------+ + + + | 02/15/ | Office | Internal Medicine | EmmyAnjum, | | | 2019 | Visit | | MD Petrona | | | | | | [address] [place] | | | | | | [place] [address] | | | | | | [phone] | | | | | | | | +--------+---------+ + + + documented as of this encounter Visit Diagnoses + + | Diagnosis | + + | Preop examination - Primary Preoperative examination, unspecified | + + documented in this encounter"
--- OUTSIDE RECORDS SUMMARY | ~2019-12-13 | XMS | Encounter Summary ---
Demographics + + + | Address | [address] | | | [place] [address] | + + + | Home Phone | | + + + | Preferred Language | Unknown | + + + | Marital Status | Single | + + + | Anabaptist Affiliation | ADV | + + + [...] Team Providers + +------+ + | Care Glaciologist Name | Role | Phone | + +------+ + | Pedrito Gutierrez MD | PCP | | + +------+ + Reason for Visit + + + | Reason | Comments | + + + | GOTTLIEB - Headache | | + + + | Chronic pain | | + + + Encounter Details +--------+---------+ + + + | Date | Type | Department | Care Team | Description | +--------+---------+ + + + | 08/28/ | Office | [facility] Comprehensive | Delfina Lambert, | Neck Pain; Radicular | | 2008 | Visit | Pain Center at | ANP | Pain in Left Arm; | | | | [facility] | | Fibromyalgia; | | | | [address] | | Chronic Bilateral | | | | Mailcode: [id number] | | Shoulder Pain; | | | | [facility] | | Coccydynia; LBP (Low | | | | and Healing, | | Back Pain); | | | | Building | | Adjustment Disorder | | | | Floor [place], [place] | | with Anxiety; Major | | | | [address] | | Depressive Disorder, | | | | [phone] | | Recurrent Episode, | | | | | | Moderate (HCC) | +--------+---------+ + + + Social History [...] + + + | Blood Pressure | 115/77 | 08/28/2008 2:52 PM | | | | | PDT | | + + + + + | Pulse | 87 | 08/28/2008 2:52 PM | | | | | PDT | | + + + + + | Temperature | 37.1 C (98.7 F) | 08/28/2008 2:52 PM | | | | | PDT | | + + + + + | Respiratory Rate | 16 | 08/28/2008 2:52 PM | | | | | PDT | | + + + + + | Oxygen Saturation | 97% | 08/28/2008 2:52 PM | | | | | PDT | | + + + + + | Inhaled Oxygen | - | - | | | Concentration | | | | + + + + + | Weight | 88.9 kg (196 lb) | 08/28/2008 2:52 PM | | | | | PDT | | + + + + + | Height | 175.3 cm (5' 9") | 08/28/2008 2:52 PM | | | | | PDT | | + + + + + | Body Mass Index | 28.94 | 08/28/2008 2:52 PM | | | | | PDT | | + + + + + documented in this encounter Patient Instructions Patient Instructions Delfina Lambert ANP - 08/28/2008 3:23 PM PDTContinue with PT and psy chology Get back into the pool routine. Schedule follow up as needed or in 4 months documented in this encounter Progress Notes Delfina Lambert ANP - 08/28/2008 3:07 PM PDTFormatting of this note might be different fr om the original. 08/28/2008 Belinda Meehan is a 48 y.o. female [facility] Return Visit Chief Complaint: Chief Complaint Patient presents with GOTTLIEB - Headache Chronic pain History of Present Illness: Belinda Meehan is a 48 y.o. year-old female with a history of chronic pain musculoskeletal pain due to fibromyalgia, osteoarthritis and degenerative spin e disease of the cervical and lumbar spine. Belinda Meehan is here today for a follow up visit to review chronic pain management plan of care. Since prior visit 08/22/08 this condition has improved . She does not have new p ain complaints on this visit. She reports her worst pain today being due to a Migraine one she has had since getting the dynamic cervical spine MRI done last week, pain located right base of neck and top of head, typical of migraine sick to stomach. She reports no longer having dizzy spells and feeling vulnerable to falling since prior visit, she believes these were due to the Fiorocet. She has not changed her amitriptyline dose. Has tried gradually increasing this to max 125 mg qh s, not benefit and was falling with dizziness at that time. Expectations for this visit include: review Cervical MRI results A Brief Pain Inventory and a pain drawing has be completed, which I reviewed. [facility] Brief Pain Inventory: (ten= worst possible pain or complete interference) Right Now: 9 (08/28/08 2:52 PM) Least in 24 hours: 8 (08/28/08 2:52 PM) Worst in 24 hours: 10 (08/28/08 2:52 PM) Average: 7 (08/28/08 2:52 PM) % Relief (med/treat): 0 (08/28/08 2:52 PM) General Activity: 9 (08/28/08 2:52 PM) Mood: 10 (08/28/08 2:52 PM) Walking Ability: 10 (08/28/08 2:52 PM) Normal Work: 10 (08/28/08 2:52 PM) Relations with Others: 9 (08/28/08 2:52 PM) Enjoyment of Life: 9 (08/28/08 2:52 PM) Sexual Activity: 0 (08/28/08 2:52 PM) Sleep: 10 (08/28/08 2:52 PM) Treatment since last visit includes: 1. Medication management: Oxycontin 40 mg Q12hr, percocet 4-6 per day, out for over one wee k Yudy 2. Physical Rehabilitation: PT starting next week 3. Mental Health care: psychology PRN for depression and pain coping skills reinforcmlorraine colin social support, services she does not have locally. Review of Systems: Denies auditory or visual difficulties resent go new glassess working well for her, fullnes s in ears or sinus infections/pain. Bones, Joints, and Muscles: joint pain, muscle pain and stiffness Gastrointestinal System: abdominal pain Genitourinary System: negative Urinary Incontinence: stress Nervous System: Numbness left hand, headache Since prior visit, there have been no changes in past medical history, past surgical histor y, family history, or social history. Current outpatient prescriptions Medication Sig Dispense Refill amitriptyline 25 mg Oral Tablet Take 25 mg by mouth. Take 2 tablets at bedtime aspirin chewable (BABY ASPIRIN) 81 mg Oral Tablet, Chewable 2 daily buPROPion XL (WELLBUTRIN XL) 300 mg Oral Tablet Sustained Release 24 hr take 1 tablet ( 300 mg) by oral route once daily CALCIUM 600 WITH VITAMIN D OR ( 400 unit of Vit D) 1 tab 4 x daily Cyanocobalamin 1,000 mcg/mL Injection Syringe 1 inj q month Docusate Sodium 100 mg Oral Tablet take 1 tablet (100 mg) by oral route once daily at b edtime as needed furosemide (LASIX) 40 mg Oral Tablet take 1 tablet (40 mg) by oral route once daily INDERAL LA 120 mg Oral Capsule,Sustained Action 24 hr Take 120 mg by mouth once daily. One tablet daily levothyroxine 50 mcg Oral Tablet take 1 tablet (50 mcg) by oral route once daily 30 1 2 methocarbamol 750 mg Oral Tablet Take 750 mg by mouth three times daily. Multivitamin Oral Tablet 1 tab po bid omeprazole magnesium (PRILOSEC OTC) 20 mg Oral Tablet, Delayed Release (E.C.) take 1 ta blet by mouth twice daily oxycodone CR 40 mg Oral Tablet Sustained Release 12 hr Take 40 mg by mouth two times da bijan. PERCOCET 5-325 mg Oral Tablet Take 1 Tab by mouth. #120/ month. 1-2 tabs every 4-6 h ours as needed. POTASSIUM CHLORIDE SR 20 MEQ TAB, PARTICLES/CRYSTALS take 1 tablet (20meq) by oral rout e once daily with food procaine 1 % Injection Solution 3 mL by Infiltration route once. 3 0 promethazine 25 mg Oral Tablet as needed riserdronate (ACTONEL) 35 mg Oral Tablet take 1 tablet (35 mg) by oral route once weekl y in the morning, at least 30 minutes before the first food, beverage, or medication of the day 12 1 year sucralfate (CARAFATE) 1 gram Oral Tablet 1 tab four times daily as needed for abdominal pain 120 3 VITAMIN C 500 MG CHEWABLE TAB four times a day Side effects: denies Past Medical History Diagnosis Date Chronic Abdominal Pain on Oxycodone, NSAIDs, ASA RUQ u/s at OSH reportedly nl panc, bile ducts, liver; ct abd/pel normal, Colorectal Polyps Internal Hemorrhoid Benign Tumor of Colon 2005 endoscopy Vertebral Fracture T7,8,9 Xray T spine 2003 Optic Nerve Hemorrhage left eye Sleep Apnea Fibromyalgia Intervertebral Disc Herniation 03/31/07 Reduced Vision Pneumonia Abdominal Pain Hx of gastric bypass Other General Symptoms Headache Kidney Stone Fibromyalgia 07/25/2008 Craniocervical junction appears stenotic in cervical extension. Past Surgical History Procedure Date Hx salpingo-oophorectomy Colonoscopy 03/2006 Hx tonsillectomy Pr d&c after delivery Pr inject trigger point, 1 or 2 Hx knee replacement 02/2007 Left knee Hx knee replacement 08/2007 right knee Hx cholecystectomy Hx section Hx hysterectomy Gastric bypass C. Deveney wt 278 01/18 Paniculectomy Hx lumbar fusion 05/2008 [id number] with bone spur removals Family History Problem Relation Cancer Mother Heart Father Additional Family History Father Migraine Additional Family History Mother Migraine MRI CINE SPINE CERVICAL WO C: MRI cervical spine without intravenous contrast and cine CSF flow study 08/22/2008. Clinical Information: Dynamic scan in neutral position and extension to assess for CSF flow and vertebral artery flow. Dizziness and vertigo with cervical extension. Comparisons: MRI cervical spine 05/25/2007. Technique: Multiplanar MR imaging of the cervical spine was performed in neutral and extension positions without intravenous contrast. Cine CSF flow study of the upper cervical spine, including the foramen magnum, was performed as well. Findings: Cervical spine alignment is normal. No marrow signal abnormality. No intramedullary cord signal abnormality. At the C3-C4 level, there is right uncovertebral osteophyte formation and mild neural foraminal narrowing on the right. At the C4-C5 level, there is right uncovertebral osteophyte formation and mild neural foraminal narrowing on the right. No spinal canal narrowing. Degenerative changes appear stable compared to the prior study. CSF flow study demonstrates normal biphasic flow at the level of the foramen magnum in both neutral and extension positions. The flow within the vertebral arteries appears normal and symmetric in both neutral and extension positions. Impression: 1. Mild degenerative changes of the cervical spine consisting of uncovertebral osteophyte formation and mild neural foraminal narrowing on the right at the C3-C4 and C4-C5 level. No spinal canal narrowing. 2. Cine CSF flow study demonstrates normal biphasic flow at the level of the foramen magnum and symmetric flow within the vertebral arteries in both neutral and extension positions. If more definitive dynamic evaluation of the vertebral arteries is deemed necessary due to clinical symptoms, dynamic conventional catheter angiography should be considered. I have personally viewed this procedure/exam and reviewed this report. Author: ELDA VIRK M.D. Reviewer: NANETTE GOODSON M.D. STATUS FINAL / Dr. NANETTE GOODSON STATUS PENDING FINAL APPROVAL / Dr. ELDA VIRK STATUS PRELIMINARY - UNSIGNED / Dr. ELDA VIRK Physical Examination: BP 115/77 | Pulse 87 | Temp (Src) 37.1 C (98.7 F) (Oral) | Resp 16 | Ht 1.753 m (5' 9") | Wt 88.905 kg (196 lb) | SpO2 97% Body mass index is 28.94 kg/(m^2). General appearance: Alert in no acute distress, well groomed, pleasant Impression: 723.1B Neck Pain 729.2DH Radicular Pain in Left Arm 729.1AV Fibromyalgia 719.41AB Chronic Bilateral Shoulder Pain 724.79C Coccydynia 724.2AF LBP (Low Back Pain) 309.24 Adjustment Disorder with Anxiety 296.32 Major Depressive Disorder, Recurrent Episode, Moderate Belinda Meehan is a 48 y.o. year-old female with a history of chronic musculoskeletal sina n due to fibromyalgia, osteoarthritis and degenerative spine disease. 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 She has seen significant improvement with knee and lower back sina n with surgery however this has flared up her central pain.sensativity with fibromyalgia. D ynamic scanning of her cervical spine with MRI confirms normal CSF and vertebral artery flow . Symptoms of dizziness and falling spells have resolve likely the consequence of autonomic dysregulation, often associated with fibromyalgia. Belinda will continue to work with PT, counselling and self care/managment of her mood sleep pain and activation. I would like her to get back in to her routine aqua therapy program and begin to focus on other things than pain. She has no planned follow up at the comprehensive pain center except for a reivew in 4 months or sooner if needed. Dr Gutierrez is currenlty her prescribing provider she is stabl e and benefiting without adverse effects by a long acting opioid and minimal breakthrough pa in medication. She is not likely to benefit with a dose increase. Recommendations/Plan: A 30 minute visit with greater than 50% spent in reviewing the progress notes and counselli ng/education of the patient. 1. Continue with PT and psychology 2. Restart routine pool exercise 3. Schedule follow up in 4 months or sooner if needed - The pateint was asked to call the clinic with any concerns or questions. 4. Pain psychology Dr Alin DUDLEY as insurance authorizes. 5. No change in pain medications 6. MRI results reviewd with patient [facility] Mail code CH 4P Ira for [facility] and [address] [address] Ty Omalley - 08/13 3:00 PM PDTCMA History: PMH/PSH/SH/FH review 1. Has your pain changed from your last visit? increased 2. Do you have any new weakness or decrease in sensation? yes GOTTLIEB since MRI on Tuesday 08/22 3. Do you have any difficulty with urination? No 4. How often do you have a bowel movement? more than once daily 5. Are you having difficulties with sexual function? Not applicable 6. Do your medications cause any side effects? no 7. Have you had physical therapy appointments since your last visit? no 8. Have you had psychology appointments since your last visit? no 9. Have you had any diagnostic studies since your last appointment? Yes. MRI 10. Do you require any medication refills today? No. Discuss percocet use. Now at 120 per month but prescibed up to 12 tablets per day. documented in this [facility] Plan of Treatment Not on filedocumented as of this encounter Visit Diagnoses + + | Diagnosis | + + | Neck pain Cervicalgia | + + | Radicular pain in left arm Neuralgia, neuritis, and radiculitis, unspecified | + + | Fibromyalgia Mylagia and myositis, unspecified | + + | Chronic Bilateral Shoulder Pain Pain in joint, shoulder region | + + | Coccydynia Other disorder of coccyx | + + | LBP (low back pain) Lumbago | + + | Adjustment disorder with anxiety | + + | Major depressive disorder, recurrent episode, moderate (HCC) Major depressive | | disorder, recurrent episode, moderate | + + documented in this encounter
--- OUTSIDE RECORDS SUMMARY | ~2019-12-13 | XMS | Encounter Summary ---
Demographics + + + | Address | [address] | | | [place] [address] | + + + | Home Phone [...] Team Providers + +------+ + | Care Patient Safety Tech Name | Role | Phone | + +------+ + PCP | Unavailable | + +------+ + Encounter Details +--------+ + + + + | Date | Type | Department | Care Team | Description | +--------+ + + + + | 01/02/ | Office | [facility], | Clinic, | Progress Note | | 2004 | Visit-Trans | DIABETES & | Endocrinology | | | | cribed | METABOLISM | | | +--------+ + + + [...] as of this encounter Progress Notes Interface, Cloth Printer In - 09/13/2005 2:06 AM PST [id number] [facility] Date: 01/02/2005 Clinic: Endocrinology Subjective: The patient is here for a followup visit in the Endocrinology Clinic for multiple medical problems related to the metabolic syndrome. She currently is recovering from surgery performed 3 weeks ago for repair of abdominal hernia and removal of excess skin from her lower abdomen and inner thighs. She had a decubitus ulcer about 3 weeks ago, but this resolved about 1 week ago after daily treatment with a DuoDerm like product. She believes about 10 pounds of body tissue was removed at the time of surgery. Her abdominal wounds have healed well, but she continues to have a small amount of drainage from her inner thighs. Her energy level continues to vary up and down, but overall, it is really good. She quit smoking 2 months ago, which was aided by treatment with Wellbutrin 150 mg p.o. b.i.d. She has noted some shakiness for about 2 months, which may correlate with smoking sensation and initiation of treatment with Wellbutrin. She believes she is still losing a small amount of weight. She continues to eat a balanced diet. She has had limited physical activity since her recent surgery but remains active. She has no problem with nausea or emesis. She has no dizziness. Medications: 1. Calcium 600 mg with vitamin D, 4 tablets daily. 2. Promethazine 25 mg p.o. p.r.n. nausea. 3. Darvocet-N 100, 500 mg, 2 p.o. p.r.n. severe pain. 4. Vitamin E 800 units daily. 5. Magnesium 800 mg daily. 6. Multivitamin 2 p.o. q. day. 7. Cyanocobalamin 1 mg intramuscularly twice monthly. 8. Ranitidine 150 mg p.o. b.i.d. 9. Wellbutrin 150 mg p.o. b.i.d. 10. Oxycodone 5 mg p.o. t.i.d. p.r.n. (initiated after her last surgery, none taken for 2 days). Physical Examination: Vital Signs: Weight 162.8 pounds, height 69 inches, blood pressure 84/58 mmHg, and pulse 68 beats per minute and regular. General: She was alert and in no acute distress. Mood within normal limits. Cardiac: Regular rate and rhythm. No murmur, S3, or S4. Normal pulses. Abdomen: No hepatosplenomegaly, masses, or abnormal tenderness. Her lower abdominal surgical wounds were healing well and were not infected. Extremities: Trace pretibial edema. In summary, this patient is doing very well, particularly as a consequence of undergoing gastric bypass surgery on November 22, 2003. She has lost a substantial amount of weight and currently has achieved a very good weight level. Her blood pressure is somewhat low as measured today in the clinic, but she has no symptoms of dizziness. She understands the need to continue to eat a balanced diet and to continue to take her various multivitamins and supplements. She will resume physical activity as tolerated. Her last measurement of transaminase and alkaline phosphatase levels was performed here on September 10, 2004. At that time, her AST level was normal, but her ALT level was mildly increased at 61 units per liter, and alkaline phosphatase also was mildly increased at 105 units per liter. Blood samples are being obtained today for repeat measurements of a complete metabolic set, serum TSH, and CBC. Her last 25-hydroxyvitamin D concentration was excellent on September 10, 2004, at which time, her level was 77 ng/mL. I made no changes in her therapy. I will see her again in about 6 months. Beto Meeks M.D. PD / HS [id number] / [id number] / [id number] / [id number] cc: Chris Padgett M.D. Electronically signed by Beto Meeks 09-12-2005 02:22:56 AM documented i n this encounter Plan of Treatment Not on filedocumented as of this encounter Visit Diagnoses Not on filedocumented in this encounter"
--- OUTSIDE RECORDS SUMMARY | ~2019-12-13 | XMS | Encounter Summary ---
Demographics + + + | Address | [address] | | | [place] [address] | + + + | Home Phone | | + + + | Preferred Language | Unknown | + + + | Marital Status | Single | + + + | Sabianism Affiliation | ADV | + + + | Race | White | + + + | Ethnic Group | Not or | + + + Author + + + | Author | [facility] | + + + | Organization | [facility] | + + + | Address [...] Team Providers + +------+ + | Care Safety And Health Manager Name | Role | Phone | [...] Description | +--------+--------+ + + + | 11/20/ | Refill | [facility] | [place], | Refill Request | | 2006 | | Center Outpatient | [facility] | | | | | [facility] [address] | | | [address] | | | | | | Outpatient Therapy | | | | | | Center 2nd floor | | | | | | Mailcode: OP26 | | | | | | [place], [place] | | | | | | [address] | | | | | | [phone] | | | +--------+--------+ + + + [...]
--- OUTSIDE RECORDS SUMMARY | ~2019-12-13 | XMS | Encounter Summary ---
Demographics + + + | Address | [address] | | | [place] [address] | + + + | Home Phone [...] Team Providers + +------+ + | Care Label Maker Name | Role | Phone | + +------+ + | Pedrito Gutierrez MD | PCP | | + +------+ + Encounter Details +--------+ + + + + | Date | Type | Department | Care Team | Description | +--------+ + + + + | 10/02/ | Transcribed | | Dictation, Other | Transcribed | | 2001 | | | | | +--------+ + [...] of this encounter Progress Notes Interface, Clinical Laboratory Manager In - 02/17/2006 3:04 AM [facility] [place] [address] [address], [place] [address] or October 02, 2001 Pedrito Gutierrez M.D. [facility] [address] [place] [address] RE: BELINDA GALARZA MR #: [id number] Dear Dr. Gutierrez: I had the pleasure of seeing Belinda Galarza again the day before yesterday September 30, 2001 in the Endocrinology Clinic for followup of a variety of problems that include hyperparathyroidism, impaired glucose tolerance, hypertension, and the metabolic syndrome. She recently began therapy with CPAP, which she seems to be very happy with due to improved sleep quality, decreasing fatigue, and decreasing daytime somnolence. She has ongoing pain in her hips, hands, and knees. Her medications are unchanged except for the addition of a multivitamin. She denies any problems with polyuria or polydipsia. She plans to begin exercising with the use of a Bowflex machine, but has been contemplating this goal for sometime. Her weight was 323 pounds, which had increased 22 pounds. Her blood pressure was 130/78 mmHg and pulse 72 beats per minute and regular. Her thyroid was firm and approximately 30 g in size. The rest of her physical exam was unchanged. In summary, her hyperparathyroidism appears to have resolved, although a repeat serum determination is currently pending. She has impaired glucose tolerance and is at high risk for development of type 2 diabetes. A hemoglobin A1c measurement is currently pending. She has a metabolic syndrome which increases her risk of various medical complications. 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 I gave her a prescription for 15 mg capsules to be taken 1 p.o. q.a.m. I discussed with her the pros and cons of such therapy as well as the possible risks. She was quite eager to begin this therapy. As indicated above, she is receiving CPAP for treatment of obstructive sleep apnea. Although, it is too soon to see the full benefits of such an intervention, she has already noticed improvement in several parameters. As indicated above, I gave her a prescription for Phentermine 15 mg p.o. q.a.m. It is important for her to be monitored at about monthly intervals to ensure that the medication is having the desired effect and is not having adverse side effects. 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 I will see her again in about 6 months or sooner as necessary, but will rely on your assessment of her ongoing status. Patients treated with Phentermine tend to lose weight for about 6 months followed by stabilization in the body weight due to the achievement of a new body weight equilibrium. Discontinuation of the medicine at that time results in a return to the pretreatment body weight. Therefore, if she responds well to the Phentermine, this will be a chronic treatment. Thank you again for allowing me to see this patient. Please feel free to contact me if you have other questions or concerns. Sincerely, Issac Meeks M.D. digital design engineer, Division of Endocrinology, Diabetes, and Clinical Pay Agent, Metabolic Disorders Clinic Ph#: [phone] [facility] / [id number] / [id number] / [id number] / C: 10/13/2001 praful [id number] signed by Interface, Clinical Laboratory Manager In at 02/17/2006 3:04 [facility]ed in this encounter Plan of Treatment Not on filedocumented as of this encounter Visit Diagnoses Not on filedocumented in this encounter"
--- OUTSIDE RECORDS SUMMARY | ~2019-12-13 | XMS | Encounter Summary ---
Demographics + + + | Address | [address] | | | [place] [address] | + + + | Home Phone | | + + + | Preferred Language | Unknown | + + + | Marital Status | | + + + | Gnosticist Affiliation | 1001 | + + + | Race | Unknown | + + + | Ethnic Group | Unknown | + + + Author + + + | Author | [facility] | | | and [place] | + + + | Organization | [facility] | | | [...] Team Providers + +------+ + | Care Keymodule Assembly Machine Tender Name | Role | Phone | + +------+ + | Petrona Thapa | PCP | | | MD | | | + +------+ + Reason for Visit + +--------+ + | Reason | Onset | Comments | | | Date | | + +--------+ + | Referral | 09/14/ | | | | 2017 | | + +--------+ + Encounter Details +--------+ + + + + | Date | Type | Department | Care Team | Description | +--------+ + + + + | 09/14/ | Telephone | [facility] | Alanis, | Referral | | 2017 | | MEDICINE [address] [place] [address] | MD Petrona | | | | | [place], | [address] [facility] | | | | | [place] [address] | [place] [address] | | | | | [phone] | [phone] | | | | | | | [...] this encounter Miscellaneous Notes Telephone Encounter - Juliane Fernandez - 09/17/2017 4:47 PM PDTSchedule 09/22/17.Electronica lljeannie signed by Juliane Fernandez at 09/17/2017 4:48 PM PDTTelephone Encounter - Maggie Montoya LPN - 09/15/2017 11:41 AM PDTPatient notified that appt maybe needed before MRI can be order ed. Message sent to MD for advise. Call transferred to PSR to schedule appointmentElectronlong kohli signed by Maggie Montoya LPN at 09/15/2017 11:45 AM PDTTelephone Encounter - Manjit Fernandez - 09/14/2017 1:33 PM PDTPatient called, and stated she has right shoulder pain, and wo uld like a nuclear test to be ordered. Patient stated they did a similar test to her left shoulder, and found a growth, please adv ise. documented in this enc ounter Plan of Treatment +--------+---------+ + + + | Date | Type | Specialty | Care Team | Description | +--------+---------+ + + + | 12/20/ | Office | Audiology | Elisabet Munson MS | | | 2019 | Visit | | [facility] [address] | | | | | | [address] [place] | | | | | | [place] [address] | | | | | | [phone] | | | | | | | | +--------+---------+ + + + | 12/20/ | Office | Otolaryngology | Ulysses Genao MD | | | 2019 | Visit | | [address] | | | | | | [address] [place] | | | | | | [place] [address] | | | | | | [phone] | | | | | | | | +--------+---------+ + + + | 02/15/ | Office | Internal Medicine | Alanis, | | | 2019 | Visit | | MD [place]ron[place] | | | | | | [address] [place] | | | | | | [place] [address] | | | | | | [phone] | | | | | | | | +--------+---------+ + + + documented as of this encounter Visit Diagnoses Not on filedocumented in this encounter"
--- OUTSIDE RECORDS SUMMARY | ~2019-12-13 | XMS | Encounter Summary ---
Demographics + + + | Address | [address] | | | [place] [address] | + + + | Home Phone [...] + + | Author | [facility] | + + + | Organization | [facility] | + + + | Address | [...] Providers + +------+ + | Care Landscape Horticulture Instructor Name | Role | Phone | + [...] | +--------+ + + + + | 07/07/ | Telephone | [facility] | Chris Padgett, | Lab findings, | | 2007 | | [place] [address] | [address] | teaching, guidance, | | | | [address] Mailcode: [address] | [address] | and counseling | | | | [facility] | [place], [place] | | | | | and Healing, | [address] | | | | | [facility] | [phone] | | | | | [place], [place] | | | | | | [address] | | | | | | [phone] | | | +--------+ + + + [...]
--- OUTSIDE RECORDS SUMMARY | ~2019-12-13 | XMS | Encounter Summary ---
Demographics + + + | Address | [address] | | | [place] [address] | + + + | Home Phone [...] Team Providers + +------+ + | Care Assembler Dielectric Heater Name | Role | Phone | + +------+ + PCP | Unavailable | + +------+ + Encounter Details +--------+ + + + + | Date | Type | Department | Care Team | Description | +--------+ + + + + | 07/25/ | Office | [facility] | Clinic, | Progress Note | | 2005 | Visit-Trans | | Rheumatology | | [...] as of this encounter Progress Notes Interface, Construction Rigger In - 01/12/2005 12:26 AM PDT [id number] [facility] Date: 07/25/2004 Clinic: Rheumatology Belinda Meehan is a 44-year-old woman who I periodically see for fibromyalgia. She feels slightly improved since last visit. After gastric bypass, she has lost 182 pounds. On VAS, her usual pain is 3/7, fatigue 5/10, sense of disability 3/10. Currently today, though her pain is about 9/10 in her T-spine area of her back, she is noted to have 3 compressed fractured vertebrae. She notes that she has had no trauma and that there is no osteoporosis. She has been on a brace for the last 6 months and apparently there is nothing much else to do. She says her spine feels like it is on fire. She has not tried a Lidoderm patch over this area. She is exercising. She is using a Bowflex and gradually adding small amounts of weights. She says the exercise makes her muscles feel much better and that she feels worse if she does not have a workout. This is actually somewhat atypical in fibromyalgia. Generally, the patients become more fatigued and more painful after exercise. At last visit, I had given Belinda a trial of Mirapex for restless legs. She says that it did help, but she did not continue to use it. Restless legs are not as much of a problem for her right now, however, are still present. Her sleep is quite poor. It also at some times takes up to 2 hours to initiate sleep, and she is usually up at 3 a.m. She rarely has restorative sleep. She is no longer having to use her CPAP due to the weight loss. At last visit, we had done trigger point injections into the gluteal areas, and this gave her 3 months of decreased pain in this area. The pain has gradually returned. Current Medications: Darvocet-N 100; ibuprofen 800 mg a day; Wellbutrin only to quit smoking, not for mood; ranitidine 150 mg; a multivitamin, calcium plus D, vitamin E 800 units, magnesium, and vitamin B12 1000 mcg every 2 weeks. She does not eat red meat. Objective: Vital Signs: Weight is 204, pulse 76 and regular, blood pressure 122/76. She has been able to come off her blood pressure medications with the weight loss. She does have tender myofascial trigger points in those upper gluteus edwardo muscles. Assessment and Plan: 1. We went ahead and did trigger point injections using 0.5% procaine in the bilateral upper gluteus edwardo muscles, a total of 8 mL was used. She tolerated the injections quite well. 2. Belinda is doing really well, I think, mostly due to all the weight that she has lost. At the [employer], a study was presented on patients with fibromyalgia who had gastric bypass, and it was noted that their IL-6 levels dropped hugely when they had lost their weight and that many of them lost the criteria for fibromyalgia. They no longer had extensive body pain, and their trigger point count went way down. I am hopeful for Belinda that she will continue to see these improvements. 3. With restless legs, one needs to watch iron stores. Belinda's last ferritin was done on February 2004, and it was 39. A level of 50 would be preferable. 4. I need to write her a prescription for a Lidoderm 5% patch. I will go ahead and send it to her. However, I do not want to get in the middle of prior authorizations, etc., which sometimes occurs for these. 5. A new sleep medication which should be both good at initiating and maintaining sleep will be on the market within a month. It is called Lunesta or eszopiclone. I am very hopeful about the medication for insomnia. It does have an indication for long-term use, and so I think this would be very useful compared to Pop. She does note that Ambien is also helpful. I did go ahead and give her a sample of Mirapex 0.25 mg. She can increase that to 0.5 or up to 0.75, to see if it improves sleep and decreases pain. There is some thought that using large doses of Mirapex does improve pain control in these patients. Lastly, if this burning pain in her spine is not helped by a Lidoderm patch, Neurontin could be considered. It was delightful to see Belinda, and I will see her back in 4 to 6 months. Caitlin Rivera M.S., F.N.P. / [id number] / [id number] / [id number] / [id number] cc: Pedrito Gutierrez M.D. [address] [facility] [place] [address] Electronically signed by Caitlin Rivera 07-31-2004 12:02:37 PM documented i n this encounter Plan of Treatment Not on filedocumented as of this encounter Visit Diagnoses Not on filedocumented in this encounter"
--- OUTSIDE RECORDS SUMMARY | ~2019-12-13 | XMS | Encounter Summary ---
Demographics + + + | Address | [address] | | | [place] [address] | + + + | Home Phone | | + + + | Preferred Language | Unknown | + + + | Marital Status | | + + + | Anglican Affiliation | 1001 | + + + | Race | Unknown | + + + | Ethnic Group | Unknown | + + + Author + + + | Author | [facility] | | | and [place] | + + + | Organization | [facility] | | | and [place] | + [...] + + +---------+ + | Marco Antonio Wlels | ECON | Unknown | | + + +---------+ + Care Team Providers + +------+ + | Care Registration Specialist Name | Role | Phone | + +------+ + | John Thapa | PCP | | | MD | | | + +------+ + Reason for Visit + + + | Reason | Comments | + + + | Follow-up | Hospital | + + + Encounter Details +--------+---------+ + + + | Date | Type | Department | Care Team | Description | +--------+---------+ + + + | 04/08/ | Office | [facility] | Alanis, | Pressure injury of | | 2018 | Visit | MEDICINE [address] | MD John | right buttock, stage | | | | [address] [place], | [address] [facility] | 1 (Primary Dx); [place] | | | | [place] [address] | [place] [address] | (obstructive sleep | | | | [phone] | [phone] | apnea); Lower leg | | | | | | edema; B12 | | | | | | deficiency; | | | | | | Fibromyalgia; | | | | | | Nausea; Other | | | | | | migraine without | | | | | | status migrainosus, | | | | | | not intractable; | | | | | | Reduced mobility | +--------+---------+ + + + Social History [...] + + + | Blood Pressure | 110/62 | 04/08/2018 10:55 AM | | | | | PDT | | + + + + + | Pulse | 74 | 04/08/2018 10:55 AM | | | | | PDT | | + + + + + | Temperature | 36.6 C (97.9 F) | 04/08/2018 10:55 AM | | | | | PDT | | + + + + + | Respiratory Rate | 16 | 04/08/2018 10:55 AM | | | | | PDT | | + + + + + | Oxygen Saturation | 97% | 04/08/2018 10:55 AM | | | | | PDT | | + + + + + | Inhaled Oxygen | - | - | | | Concentration | | | | + + + + + | Weight | 96.9 kg (213 lb 10 | 04/08/2018 10:55 AM | | | | oz) | PDT | | + + + + + | Height | 172.7 cm (5' 8") | 04/08/2018 10:55 AM | | | | | PDT | | + + + + + | Body Mass Index | 32.48 | 04/08/2018 10:55 AM | | | | | PDT | | + + + + + documented in this encounter Progress Notes John Thapa MD - 04/08/2018 11:00 AM PDTFormatting of this note might be d ifferent from the original. CHIEF COMPLAINT Chief Complaint Patient presents with Follow-up Hospital HPI Belinda Meehan is a 58 y.o. y/o female who presents today for several issues: She had a rather complicated and prolonged surgery, over 40 years long, last month for sign ificant abdominal of the lesions and bowel obstruction. She had a right-sided partial colec matthew and adhesion removals. She went home after that and she has a nurse coming several [place] a week to help her with the wound care. She still has a small area that needs to be pack ed on the anterior abdomen. She states she has soreness on her bottom for last several days and wonders whether she has a pressure sore. She also reports increased lower extremities edema which is not new for her. Her mobility has been quite restricted since surgery but lately she has been able to get up and walk a li ttle bit more. She has history of B12 deficiency, wanted to have a B12 injection today. She also wants to have her Zofran refilled. The dose was increased by her surgeon to 2 tab lets of the time and that works better for her. She also wants to try that sumatriptan which didn't make it to the pharmacy last time. She has left-sided headaches with photophobia, pounding in nature, lasting several hours at [place]. Had a flu shot last month. No chest pain palpitations or other acute sxs. REVIEW OF SYSTEMS See HPI for further details. Review of systems otherwise negative. PAST MEDICAL HISTORY Past Medical History: Diagnosis Date Anemia Anxiety Arthritis Atypical chest pain Benign essential hypertension Blind left eye Cervical radiculopathy Chronic bilateral low back pain with left-sided sciatica Chronic low back pain 01/04/2015 Chronic neck pain 01/04/2015 Chronic pain Chronic venous insufficiency Coccydynia COPD (chronic obstructive pulmonary disease) (HCC) Depression [...] Spondylosis with myelopathy, lumbar region Stroke ([facility]) Syncope Tremor Type II or unspecified [...] Procedure: COLONOSCOPY; Surgeon: Luther Brito MD; Location: [facility] MEDICAL PROCEDURE UNIT DILATION AND CURETTAGE OF UTERUS ELBOW SURGERY FINGER TRIGGER RELEASE 2003 FINGER TRIGGER RELEASE 2010 GASTRIC BYPASS SURGERY 2004 HYSTERECTOMY 05/14/1980 JOINT REPLACEMENT Bilateral 2006 2007 KNEE ARTHROSCOPY 2005 LAPAROSCOPY 01/27/2015 LAPAROTOMY 2008 ROTATOR CUFF REPAIR 2005 SPINE SURGERY TONSILLECTOMY 1964 UPPER GASTROINTESTINAL ENDOSCOPY N/A 12/18/2017 Procedure: EGD; Surgeon: Luther Brito MD; Location: [facility] MEDICAL PROCEDURE UNIT CURRENT MEDICATIONS Current Outpatient Prescriptions Medication Sig Dispense Refill albuterol 90 mcg/puff inhaler Inhale 2 puffs into the lungs every 6 hours as needed for Wheezing, Shortness of Breath or Increased Work of Breathing (cough). 1 Inhaler 1 ascorbic acid (VITAMIN C) 500 mg tablet Take 500 mg by mouth Daily. betaxolol 0.5% ophthalmic suspension Place 1 drop into both eyes 2 times daily. butt paste ointment CTZ Apply topically Twice daily as needed for Diaper Rash. 90 g 2 Calcium Carbonate (CALTRATE 600 PO) TABS: 1 [...] 4 times daily as needed for Diarrhea. (Patient taking differently: Take 1 tablet by mouth 2 times d aily.) 120 tablet 5 fluticasone (FLONASE) 50 mcg/nasal [...] for Pain. levothyroxine (SYNTHROID) 75 MCG tablet take 1 tablet by mouth every morning BEFORE KIERSTEN AKFAST 90 tablet 2 meclizine (ANTIVERT) 25 mg tablet take [...] (ZOFRAN ODT) 4 mg disintegrating tablet Take 2 tablets by mouth every 8 dhara rs as needed for up to 30 days. 150 tablet 1 potassium chloride (KLOR-CON M20) 20 mEq ER [...] TO FIND CPAP Mask 400 each 5 zinc sulfate 220 mg capsule Take 1 capsule by mouth Daily. 30 capsule 1 zoledronic acid (RECLAST) 5 mg/100 mL SOLN Inject 5 mg into the vein once. YEARLY Current Facility-Administered Medications Medication Dose Route Frequency Provider Last Rate Last Dose cyanocobalamin (VITAMIN B-12) injection 1,000 mcg 1,000 mcg Intramuscular Q30 Days [facility] steve-Russell Thapa MD 1,000 mcg at 04/08/18 1131 ALLERGIES Allergies Allergen Reactions Lactose Codeine Sulfate Nausea Only Levofloxacin Hives, Itching and Rash Amitriptyline Hcl Other (See Comments) Confused and questionable for seizures Hcjvsjxlmx-Mtaz-Xsgtynpg Hives and Rash Cephalexin Hives Ciprofloxacin Hives and Rash Clarithromycin Hives and Rash Clindamycin Hcl Hives and Rash Doxycycline Rash Duloxetine Other (See Comments) Migraines and nausea Ketorolac Hives Levofloxacin Hives and Rash Morphine Swelling Penicillins Hives and Rash Ropinirole Hcl Hives Sulfamethoxazole-Trimethoprim Hives and Rash Tramadol Hcl Nausea Only PHYSICAL EXAM VITAL SIGNS: BP 110/62 | Pulse 74 | Temp 36.6 C (97.9 F) (Temporal) | Resp 16 | Ht 1.727 m (5' 8") | Wt 96.9 kg (213 lb 10 oz) | LMP (LMP Unknown) | SpO2 97% | Breastfeed ing? No | BMI 32.48 kg/m Constitutional: Well developed, Well nourished, No acute distress, Pleasant female. HENT: Normocephalic, Atraumatic, Bilateral external ears normal, Oropharynx with no erythma , No oral exudates, Nose normal. Cardiovascular: Regular rate & rhythm, No murmurs, No rubs, No gallops. 3-4+ lower extremit ies edema. Thorax & Lungs: Normal breath sounds, No respiratory distress, No wheezing, No rubs. Abdomen: Bowel sounds normal, Soft, no masses. Skin: Healing surgical wound on the middle portion of the lower anterior abdomen with a sma ll area that has packing in place in the lower abdomen. Musculoskeletal: Good range of motion in all major joints. Neurologic: Alert & oriented x 3, Normal motor function, Normal sensory function, No focal deficits noted. Psychiatric: Affect normal, Judgment normal, Mood normal. ASSESSMENT & PLAN 1. Pressure injury of right buttock, stage 1 - butt paste ointment CTZ; Apply topically Twice daily as needed for Diaper Rash. Dispen se: 90 g; Refill: 2 - zinc sulfate 220 mg capsule; Take 1 capsule by mouth Daily. Dispense: 30 capsule; Refill : 1 2. Lower leg edema - Continue to elevate lower extremities. Offered referral to physical therapy but she stat es she would like to check with a provider in [place] which is closer to her home for wrap ping of lower extremities. 3. B12 deficiency - B12 injection given in the office today. 4. Nausea - ondansetron (ZOFRAN ODT) 4 mg disintegrating tablet; Take 2 tablets by mouth every 8 hour s as needed for up to 30 days. Dispense: 150 tablet; Refill: 1 7. Other migraine without status migrainosus, not intractable - SUMAtriptan (IMITREX) 25 mg tablet; 1 tab by mouth with onset of migraine, may repeat in 2 hours if no relief. Max 2 tabs/24 hours Dispense: 9 tablet; Refill: 2 FOLLOW-UP No Follow-up on file. Note: Parts of this documentwere created using Germin8 speech recognition software. As a r esult, there may be unintended word spelling errors. Every attempt was made to correct the dictation. Tana, Anastasia Leonardo LPN - 04/08/2018 11:00 AM PDTFormatting of this note might be different from the origi nal. Administrations This Visit cyanocobalamin (VITAMIN B-12) injection 1,000 mcg Admin Date 04/08/2018 Action Given Dose 1000 mcg Route Intramuscular Administered By Maggie Montoya LPN Vitamin B12 1000mcg given IM left deltoid. Patient tolerated injection well documented in this enc ounter Miscellaneous Notes Addendum Note - John Thapa MD - 04/08/2018 11:00 AM PDT Addended by: JOHN HOPKINS on: 04/12/2018 13:47 Modules accepted: Orders documen holly in this encounter Plan of Treatment +--------+---------+ + + + | Date | Type | Specialty | Care Team | Description | +--------+---------+ + + + | 12/20/ | Office | Audiology | Elisabet Munson, MS | | | 2019 | Visit | | [facility] [address] | | | | | | [place] | | | | | | [place] [address] | | | | | | [phone] | | | | | | | | +--------+---------+ + + + | 12/20/ | Office | Otolaryngology | Ulysses Genao MD | | | 2019 | Visit | | [address] | | | | | | [address] [place] | | | | | | [place] [address] | | | | | | [phone] | | | | | | | | +--------+---------+ + + + | 02/15/ | Office | Internal Medicine | Alanis, | | | 2019 | Visit | | MD John | | | | | | [address] [place] | | | | | | [place] [address] | | | | | | [phone] | | | | | | | | +--------+---------+ + + + documented as of this encounter Visit Diagnoses + + | Diagnosis | + + | Pressure injury of right buttock, stage 1 - Primary | + + | [place] (obstructive sleep apnea) Obstructive sleep apnea (adult) (pediatric) | + + | Lower leg edema Edema | + + | B12 deficiency Other B-complex deficiencies | + + | Fibromyalgia Mylagia and myositis, unspecified | + + | Nausea Nausea alone | + + | Other migraine without status migrainosus, not intractable | + + | Reduced mobility Other ill-defined conditions | + + documented in this encounter [...] | | | | First dose on [facility] 10/15/17 at 1215 | | | [...]
--- OUTSIDE RECORDS SUMMARY | ~2019-12-13 | XMS | Encounter Summary ---
Demographics + + + | Address | [address] | | | [place] [address] | + + + | Home Phone [...] + + + | Author | [facility] | + + + | Organization | [facility] | + + + | [...] Team Providers + +------+ + | Care Corporate Communications Specialist Name | Role | Phone | + +------+ + | Pedrito Gutierrez MD | PCP | | + +------+ + Encounter Details +--------+ + + + + | Date | Type | Department | Care Team | Description | +--------+ + + + + | 01/29/ | Office | [facility], | Clinic, | Progress Note | | 2006 | Visit-Trans | DIABETES & | Endocrinology [...] as of this encounter Progress Notes Interface, Greens Keeper In - 02/15/2006 2:03 AM PDT [id number] GEOVANNI BELINDA Molly [id number] Clinic Date: 01/29/2006 Clinic: Endocrinology Belinda Meehan is an almost 46-year-old woman who underwent gastric bypass surgery in November 2003, has a history of type 2 diabetes mellitus, hypertension, secondary hyperparathyroidism resulting from vitamin D deficiency, migraine headaches, history of smoking, asthma, obstructive sleep apnea, restless legs syndrome, and metabolic syndrome. She had a cholecystectomy in February 2004. During recent months, she has been severely troubled by unpredictable episodes of postprandial severe diffuse abdominal pain resulting in 2 visits to the local Emergency department. She is unable to predict when these episodes will occur, but the pain becomes so severe that she is sometimes unable to walk. She sometimes has emesis and occasionally diarrhea, but the primary symptom is severe abdominal pain. During one of her visits to the Emergency Department in [place], she apparently had elevated "liver enzyme levels" and her blood pressure was up to 160/98. She subsequently underwent diagnostic testing that apparently included CT imaging of her abdomen and upper GI endoscopy, abdominal ultrasound, and other testing; the results of which have apparently been normal. [place] ago which has increased her level of physical activity. She has only occasional headaches, due in part to ongoing treatment with propanolol. She apparently was referred by Dr. Padgett to see a vacuum furnace operator here at [facility] for further evaluation of severe recurrent abdominal pain, but the patient said her referral has been blocked by her insurance provider. She is feeling so fatigued and discouraged by the recurrent pain that she has not had the enthusiasm or motivation necessary to try to appeal the denial. Medications: 1. Promethazine 0.25 mg daily p.r.n. 2. Vitamin B12 1000 mcg intramuscularly every month. 3. Ranitidine 150 mg p.o. b.i.d. 4. Wellbutrin 300 mg daily. 5. Propanolol 25 mg p.o. b.i.d. 6. Belladonna 3 tablets daily. 7. Oxycodone 5 mg 2 tablets every 4 hours p.r.n. severe pain. 8. Aspirin 81 mg daily. 9. Glucosamine/chondroitin sulfate 1500 mg daily. 10. Colace 100 mg daily p.r.n. 11. Iron 27 mg daily. 12. Magnesium 400 mg p.o. b.i.d. 13. Vitamin C 500 mg p.o. b.i.d. 14. Vitamin E 400 units daily. 15. Calcium plus vitamin D 600 mg 4 tablets daily. 16. Multivitamin 2 daily. 17. Betoptic S 0.25%, two drops daily in each eye. Physical Examination: Vital Signs: Weight 191.1 pounds (increased 14 pounds since October 23, 2005, and increased 22 pounds since July 03, 2005), blood pressure 92/64 ([facility] and pulse 60 beats per minute and regular. General: She was alert and in no acute distress. Mood within normal limits. Cardiac: Regular rate and rhythm. No murmur, S3, S4, or rubs. No jugular venous distention. Pulses within normal limits. Abdomen: No hepatosplenomegaly, masses, or tenderness. Extremities: Significant only for a trace of pretibial edema. Laboratory Studies: A complete metabolic set performed this afternoon showed a serum glucose concentration of 87 mg/dL, normal AST of 32 U/L, minimally elevated ALT of 54 U/L, and high alkaline phosphatase level of 153 U/L. Her bilirubin, however, was only 0.3 mg/dL. Albumin was 3.9 g/dL. A CBC also was done which showed normal hemoglobin of 15 g/dL, hematocrit 44.2%, white blood cell count 7100 per cubic millimeter, and normal white blood cell differential. In summary, Belinda is currently debilitated by recurrent severe postprandial abdominal pain that remains idiopathic. She apparently had an elevation in some type of liver enzyme levels when she was evaluated recently at the Emergency Department in [place]. Her alkaline phosphatase level today is about 50% above the upper limit of normal, but her hepatic transaminase levels are not striking elevated. Although she has had a cholecystectomy, it is possible that she still could have some type of biliary dysfunction contributing to the abdominal pain and alkaline phosphatase elevation. She also has a risk for vitamin D deficiency which could be manifested as an elevation in alkaline phosphatase. A serum 25-hydroxyvitamin D determination is pending from today along with a serum TSH determination. She clearly would benefit from being evaluated by a vacuum furnace operator. According to the patient, no gastroenterologists are available in [place]. She needs to petition her primary care provider and her insurance company to give the necessary authorization to allow her to be evaluated by a vacuum furnace operator. Plan: 1. Await results of serum 25-hydroxyvitamin D and serum TSH from today. 2. Reduce propanolol dosage to 30 mg b.i.d. from 60 mg b.i.d. to see if this will help alleviate hypotension. She will need to increase the dosage again if her headaches get worse. 3. Continue to increase her physical activity to help combat persistent weight gain. 4. She needs to be seen by a vacuum furnace operator. 5. Return to see me again in 3 months. Beto Meeks M.D. PD / HS [id number] / [id number] / [id number] / cc: Pedrito Gutierrez M.D. [address] [place] [address] Chris Padgett M.D. Electronically signed by Beto Meeks 02-14-2006 02:02:55 AM documented i n this encounter Plan of Treatment Not on filedocumented as of this encounter Visit Diagnoses Not on filedocumented in this encounter
--- OUTSIDE RECORDS SUMMARY | ~2019-12-13 | XMS | Encounter Summary ---
Demographics + + + | Address | [address] | | | [place] [address] | + + + | Home Phone | | + + + | Preferred Language | Unknown | + + + | Marital Status | | + + + | Taoism Affiliation | 1001 | + + + | Race | Unknown | + + + | Ethnic Group | Unknown | + + + Author + + + | Author | [facility] | | | and [place] | + + + | Organization | [facility] | | [...] Team Providers + +------+ + | Care Filler And Trimmer Name | Role | Phone | + [...] Description | +--------+--------+ + + + | 01/14/ | Refill | [facility] | Alanis, | Medication Refill | | 2017 | | MEDICINE [address] | MD [place] | | | | | [place], | [address] [facility] | | | | | [place] [address] | [place] [address] | | | | | [phone] | [phone] | | | | | | | [...] | 2019 | Visit | | [facility] [address] | | | | | | [address] [place] | | | | | | [place] [address] | | | | | | [phone] | | | | | | | | +--------+---------+ + + + | 12/20/ | Office | Otolaryngology | Ulysses Genao MD | | | 2019 | Visit | | [address] | | | | | | [address] | | | | | | [place] [address] | | | | | | [phone] | | | | | | | | +--------+---------+ + + + | 02/15/ | Office | Internal Medicine | Alanis, | | | 2019 | Visit | | MD [place] | | | | | | [address] [place] | | | | | | [place] [address] | | | | | | [phone] | | | | | | | | +--------+---------+ + + + documented as of this encounter Visit Diagnoses Not on filedocumented in this encounter"
--- OUTSIDE RECORDS SUMMARY | ~2019-12-13 | XMS | Encounter Summary ---
Demographics + + + | Address | [address] | | | [place] [address] | + + + | Home Phone | | + + + | Preferred Language | Unknown | + + + | Marital Status | Single | + + + | Tenriism Affiliation | ADV | + + + | Race | White | + + + | Ethnic Group | Not or | + + + Author + + + | Author | [facility] | + + + | Organization | [facility] | + + + | Address [...] Providers + +------+ + | Care Manager Title Name | Role | Phone | + +------+ + | Pedrito Gutierrez MD | PCP | | + +------+ + Reason for Referral Consultation (Routine) +--------+ + + + + + | Status | Reason | Specialty | Diagnoses / | Referred By | Referred To | | | | | Procedures | Contact | Contact | +--------+ + + + + + | Closed | Specialty | Bone | Diagnoses | Lorin | [facility] | | | Services | Densitometry | Status post | MD Chris | Density Chh1 | | | Required | | gastric | [address] | | | | | bypass for | [address] | Ave | | | | | obesity | [address] | Mailcode: | | | | | Procedures | [facility] [place] | [address] | | | | | CONSULT TO | [address] | for Health | | | | | BONE | Phone: | and Healing, | | | | | DENSITOMETRY | [phone] | [address] | | | | | | Fax: | [place], [place] | | | | | | [phone] | [address] | | | | | | | Phone: | | | | | | | [phone] | | | | | | | Fax: | | | | | | | [phone] | +--------+ + + + + + Reason for Visit + + + | Reason | Comments | + + + | Follow-up encounter | | + + + Encounter Details +--------+---------+ + + + | Date | Type | Department | Care Team | Description | +--------+---------+ + + + | 05/25/ | Office | Dig[facility]ive [facility] | Lorin Chris, | Chronic Abdominal | | 2005 | Visit | Center [address] | [address] | Pain (Primary Dx); | | | | Ave Mailcode: CH4S | [address] | Status Post Gastric | | | | [facility] | [place], [place] | Bypass for Obesity | | | | and Healing, | [address] | | | | | [facility] | [phone] | | | | | Floor [place], [place] | | | | | | [address] | | | | | | [phone] | | | +--------+---------+ + + + [...] + + + | Blood Pressure | 112/86 | 05/25/2006 3:06 PM | | | | | PST | | + + + + + | Pulse | 76 | 05/25/2006 3:06 PM | | | | | PST | | + + + + + | Temperature | 36.8 C (98.3 F) | 05/25/2006 3:06 PM | | | | | PST | | + + + + + | Respiratory Rate | 16 | 05/25/2006 3:06 PM | | | | | PST | | + + + + + | Oxygen Saturation | - | - | | + + + + + | Inhaled Oxygen | - | - | | | Concentration | | | | + + + + + | Weight | 89.9 kg (198 lb 3.2 | 05/25/2006 3:06 PM | | | | oz) | PST | | + + + + + | Height | - | - | | + + + + + | Body Mass Index | 36.25 | 01/22/2006 2:47 PM | | | | | PDT | | + + + + + documented in this encounter Progress Notes Theresa Sanchez, Nuris Armijo - 05/26/2006 8:49 AM PSTPt s/p gastric bypass 11/22/03 and panniculectomy with chronic abd. pain. Here for results of recent EGD and capsule endoscopy. Is schedu led with nikhil svc. Thu. 05/29. Hx. vertebral fx. with last BMD 2 yrs ago. A&O 46 yo woman. VSS, NAD. Chronic abd. pain Will schedule pt for UGI with Small bowel follow through and DEXA scan for morning on 5. Keep pain svc. appt in afternoon. Informed pt of normal EGD and capsule endoscopy resul ts. Seen with Dr Padgett. established 15 min. documented in this encoun ter Plan of Treatment Not on filedocumented as of this encounter Procedures + +--------+ + + + | Procedure Name | Priori | Date/Time | Associated Diagnosis | Comments | | | ty | | | | + +--------+ + + + | X-RAY UGI W SMALL | Routin | 05/29/2006 | Chronic Abdominal | Results for this | | BOWEL W MX SERIAL | e | 11:30 AM | Pain | procedure are in the | | | | PST | | results section. | + +--------+ + + + documented in this encounter Results UGI W SMALL BOWEL W MX SERIAL (05/29/2006 11:30 AM PST) + + + + + + | Component | Value | Ref Range | Performed | Pathologist | | | | | At | Signature | + + + + + + | UGI W SMALL | Radiologist 1: FLORINDA, | | | | | BOWEL W MX | LOUISSTUDY: Upper GI | | | | | SERIAL | with small bowel follow | | | | | | through COMPARISON: CT | | | | | | abdomen 10/23/05 | | | | | | FINDINGS:Upper GI with | | | | | | small bowel | | | | | | follow-through | | | | | | demonstrates | | | | | | normalcourse and | | | | | | contours of the | | | | | | esophagus. There is a | | | | | | small slidinghiatal | | | | | | hernia. Motility of | | | | | | the esophagus appeared | | | | | | normal. Postoperative | | | | | | changes of Zoe-en-Y | | | | | | gastric bypass surgery | | | | | | are noted,with a | | | | | | expected small size of | | | | | | the remaining stomach. | | | | | | Contrastrapidly | | | | | | empties from the stomach | | | | | | into the small bowel. | | | | | | The small bowel motility | | | | | | and contours appear | | | | | | normal. There wereno | | | | | | areas of small bowel | | | | | | wall thickening or | | | | | | aperistalsis | | | | | | noted.Contrast partly | | | | | | filled the ascending | | | | | | colon by one hour 55 | | | | | | minutes.Terminal ileum | | | | | | appears normal. | | | | | | IMPRESSION:1. Expected | | | | | | postsurgical changes of | | | | | | Zoe-en-Y gastric | | | | | | bypassprocedure.2. | | | | | | Small sliding hiatal | | | | | | hernia.3. An | | | | | | explanation for the | | | | | | patient's lower | | | | | | abdominal cramping isnot | | | | | | identified. Small | | | | | | bowel follow-through | | | | | | appears within | | | | | | normallimits. | | | | + + + + + + + + | Specimen | + + | | + + + +---------+ + + | Performing | Address | City/State/Zipcode | Phone Number | | Organization | | | | + +---------+ + + | [facility] | | | | | RADIOLOGY | | | | + +---------+ + + documented in this encounter Visit Diagnoses + + | Diagnosis | + + | Chronic abdominal pain - Primary Abdominal pain, unspecified site | + + | Status post gastric bypass for obesity Bariatric surgery status | + + documented in this encounter"
--- OUTSIDE RECORDS SUMMARY | ~2019-12-13 | XMS | Encounter Summary ---
Demographics + + + | Address | [address] | | | [place] [address] | + + + | Home Phone [...] Team Providers + +------+ + | Care Legal Process Specialist Name | Role | Phone | + +------+ + | Pedrito Gutierrez MD | PCP | | + +------+ + Encounter Details +--------+------+ + + + | Date | Type | Department | Care Team | Description | +--------+------+ + + + | 02/28/ | Lab | Laboratory at [facility] | | Hypothyroidism; | | 2007 | | [address] | | Edema | | | | [facility] | | | | | | [address], 3rd floor | | | | | | [place], [place] | | | | | | [address] | | | | | | [phone] | | | +--------+------+ + + + Social History [...] + | COMPLETE METABOLIC | Routin | 02/29/2008 | Edema | Results for this | | SET | e | 2:16 PM | | procedure are in the | | (NA,K,CL,CO2,BUN,CRE | | PDT | | results section. | | AT,GLUC,CA,AST,ALT,B | | | | | | DEYA TOTAL,ALK | | | | | | PHOS,ALB,PROT TOTAL) | | | | | + +--------+ + + + | CBC ONLY | Routin | 02/29/2008 | Hypothyroidism | Results for this | | | e | 2:16 PM | | procedure are in the | | | | PDT | | results section. | + +--------+ + + + | FREE T4 | Routin | 02/29/2008 | Hypothyroidism | Results for this | | | e | 2:16 PM | | procedure are in the | | | | PDT | | results section. | + +--------+ + + + | TSH | Routin | 02/29/2008 | Hypothyroidism | Results for this | | | e | 2:16 PM | | procedure are in the | | | | PDT | | results section. | + +--------+ + + + documented in this encounter Results CBC ONLY (02/29/2008 2:16 PM PDT) + +-------+ + + + | Component | Value | Ref Range | Performed | Pathologist | | | | | At | Signature | + +-------+ + + + | WHITE CELL | 8.1 | 4.4 - 11.0 K/cu | [facility] | | | COUNT | | mm | DEPARTMENT | | | | | | OF | | | | | | PATHOLOGY | | + +-------+ + + + | RED CELL | 4.40 | 4.00 - 5.20 | [facility] | | | COUNT | | M/cu mm | DEPARTMENT | | | | | | OF | | | | | | PATHOLOGY | | + +-------+ + + + | HEMOGLOBIN | 13.8 | 12.0 - 16.0 | [facility] | | | | | g/dL | DEPARTMENT | | | | | | OF | | | | | | PATHOLOGY | | + +-------+ + + + | HEMATOCRIT | 41.3 | 36.0 - 46.0 % | [facility] | | | | | | DEPARTMENT | | | | | | OF | | | | | | PATHOLOGY | | + +-------+ + + + | MCV | 93.7 | 80.0 - 96.0 fL | [facility] | | | | | | DEPARTMENT | | | | | | OF | | | | | | PATHOLOGY | | + +-------+ + + + | MCHC | 33.5 | 33.4 - 35.5 | [facility] | | | | | g/dL | DEPARTMENT | | | | | | OF | | | | | | PATHOLOGY | | + +-------+ + + + | RDW | 13.2 | 11.5 - 15.0 % | [facility] | | | | | | DEPARTMENT | | | | | | OF | | | | | | PATHOLOGY | | + +-------+ + + + | PLATELET | 220 | 150 - 400 K/cu | [facility] [...] | + + + + + | [facility] | [address] | [place] [address] | | | PATHOLOGY | [address] | | | + + + + + | [facility] | [address] | [place] [address] | | | PATHOLOGY | [address] | | | + + + + + COMPLETE METABOLIC SET (NA,K,CL,CO2,BUN,CREAT,GLUC,CA,AST,ALT,BILI TOTAL,ALK PHOS,ALB,PROT TOTAL) (02/29/2008 2:16 PM PDT) + +---------+ + + + | Component | Value | Ref Range | Performed | Pathologist | | | | | At | Signature | + +---------+ + + + | GLUCOSE, | 97 [...] +---------+ + + + | CREATININE | 0.61 | 0.60 - 1.10 | [facility] | | | PLASMA | | mg/dL | DEPARTMENT | | | (LAB) | | | OF | | | | | | PATHOLOGY | | + +---------+ + + + | TOTAL | 6.5 | 6.1 - 7.9 g/dL | [facility] | | | PROTEIN, | | | DEPARTMENT | | | PLASMA | | | OF | | | (LAB) | | | PATHOLOGY | | + +---------+ + + + | ALBUMIN, | 3.6 | 3.5 - 4.7 g/dL | [facility] [...] + + + | ALK PHOS | 100 (H) | 42 - 98 U/L | [facility] | | | | | | DEPARTMENT | | | | | | OF | | | | | | PATHOLOGY | | + +---------+ + + + | AST(SGOT) | 27 | 15 - 41 U/L | [facility] | | | | | | DEPARTMENT | | | | | | OF | | | | | | PATHOLOGY | | + +---------+ + + + | SODIUM, | 142 | 134 - 143 | [facility] | | | PLASMA | | mmol/L | DEPARTMENT | | | (LAB) | | | OF | | | | | | PATHOLOGY | | + +---------+ + + + | POTASSIUM, | 4.1 | 3.4 - 5.0 | [facility] | | | PLASMA | | mmol/L | DEPARTMENT | | | (LAB) | | | OF | | | | | | PATHOLOGY | | + +---------+ + + + | CHLORIDE, | 101 | 97 - 108 mmol/L | [facility] | | | PLASMA | | | DEPARTMENT | | | (LAB) | | | OF | | | | | | PATHOLOGY | | + +---------+ + + + | TOTAL CO2, | 33 (H) | 23 - 31 mmol/L | [facility] | | | PLASMA | | | DEPARTMENT | | | (LAB) | | | OF | | | | | | PATHOLOGY | | + +---------+ + + + | ALT (SGPT) | 31 | 13 - 48 U/L | [facility] | | | | | | DEPARTMENT | | | | | | OF | | | | | | PATHOLOGY | | + +---------+ + + + + + | Specimen | + + | Blood - Blood | + + + + + | Narrative | Performed At | + + + | [id number] Estimated GFR > 60 mL/min/1.73 sq m if non- | [facility] | | [place] [id number] Estimated GFR > 60 mL/min/1.73 sq m if | DEPARTMENT OF | | [place] GFR is estimated using the MDRD equation [...] | | - Rapidly changing kidney function New Creatinine Reference | | | ranges effective 02/16/08. | | + + + + + + + + | Performing | Address | City/State/Zipcode | Phone Number | | Organization | | | | + + + + + | [facility] | [address] | [place] [address] | | | PATHOLOGY | [address] | | | + + + + + | [facility] | [address] | [place] [address] | | | PATHOLOGY | [address] | | | + + + + + FREE T4, SERUM (02/29/2008 2:16 PM PDT) + +-------+ + + + | Component | Value | Ref Range | Performed | Pathologist | | | | | At | Signature | + +-------+ + + + | FREE T4, | 0.7 | 0.6 - 1.6 ng/dL | | | | SERUM | | | | | + +-------+ + + + + + | Specimen | + + | Blood - Blood | + + + + + | Narrative | Performed At | + + + | Reference Range change effective | | | 04/05/07 [facility] ([facility]) | | | [facility] [place] [address] [address] | | | [place] [address] | | + + + + + + + + | Performing | Address | City/State/Zipcode | Phone Number | | Organization | | | | + + + + + | [facility] | [address] | [place] [address] | | | LABORATORY | | | | + + + + + TSH (02/29/2008 2:16 PM PDT) + +-------+ + + + | Component | Value | Ref Range | Performed | Pathologist | | | | | At | Signature | + +-------+ + + + | TSH | 1.30 | 0.34 - 5.60 | | | | | | uIU/ml | | | + +-------+ + + + + + | Specimen | + + | Blood - Blood | + + + + + | Narrative | Performed At | + + + | Reference range change effective | | | 04/05/07 [facility] ([facility]) | | | [facility] [place] [address] | | | [place] [address] | | + + + + + + + + | Performing | Address | City/State/Zipcode | Phone Number | | Organization | | | | + + + + + | [facility] | [address] | [place] [address] | | | LABORATORY | | | | + + + + + documented in this encounter Visit Diagnoses + + | Diagnosis | + + | Hypothyroidism Unspecified hypothyroidism | + + | Edema | + + documented in this encounter"
--- OUTSIDE RECORDS SUMMARY | ~2019-12-13 | XMS | Encounter Summary ---
Demographics + + + | Address | [address] | | | [place] [address] | + + + | Home Phone [...] Team Providers + +------+ + | Care Hotel Or Motel Receptionist Name | Role | Phone | + [...] Closed | | Neurology | Diagnoses | Stephens, | Ian General | | | | | Migraine | MD Edy | [address] | | | | | headache | [address] | [address] | | | | | Procedures | Naeem Mcrae | Mailcode: | | | | | CONSULT TO | Rd | [address] | | | | | NEUROLOGY | [place], [place] | for Health | | | | | | [address] | and Healing, | | | | | | Phone: | Building 1, | | | | | | [phone] | [facility] | | | | | | | [place], [place] | | | | | | | [address] | | | | | | | Phone: | | | | | | | [phone] | | | | | | | Fax: | | | | | | | [phone] | +--------+--------+ + + + + Reason for Visit + + + | Reason | Comments | + + + | Follow-up visit | | + + + Encounter Details +--------+---------+ + + + | Date | Type | Department | Care Team | Description | +--------+---------+ + + + | 02/28/ | Office | Kraig Turner | Beto Parish MD | Hypothyroidism; | | 2008 | Visit | [facility] | [address] | Edema; | | | | [facility] | [place], [place] | Weak; | | | | [address] | [address] | Migraine Headache | | | | [address] | [phone] | | | | | [facility] | | | | | | Physician's | | | | | | [facility] [place], | | | | | | [place] [address] | | | | | | [phone] | | | +--------+---------+ + + + [...] + + + | Blood Pressure | 90/60 | 02/29/2008 1:00 PM | | | | | PDT | | + + + + + | Pulse | 72 | 02/29/2008 1:00 PM | | | | | [...] + + + + | Weight | 86.3 kg (190 lb 4.8 | 02/29/2008 1:00 PM | | | | oz) | PDT | | + + + + + | Height | - | - | | + + + + + | Body Mass Index | 28.1 | 12/27/2007 3:59 PM | | | | | PDT | | + + + + + documented in this encounter Patient Instructions Patient Instructions Edy Stephens - 02/29/2008 1:50 PM PDTPlease take only half of your n ormal dose of Lasix (40 mg tablet once daily).Electronically signed by Edy Stephens at 02/28 1:50 PM PDT documented in this encounter Progress Notes Beto Parish - 03/02/2008 2:49 PM PDTFormatting of this note might be different from the or iginal. STAFF I have participated in carrera aspects of the review of records, patient interview and examinat ion, counseling, and formulation of the evaluation and treatment plan. I agree with toni camacho by Dr. Stephens. Please see attached notes for full details of the visit. Labs are f airly unremarkable. LABS Component Reference Range 02/29/2008 GLUCOSE (LAB) 60-99 mg/dL 97 BUN 6-20 mg/dL 7 CREATININE,PLASMA 0.60-1.10 mg/dL 0.61 TOTAL PROTEIN 6.1-7.9 g/dL 6.5 ALBUMIN (LAB) 3.5-4.7 g/dL 3.6 CALCIUM (LAB) 8.6-10.2 mg/dL 9.2 BILIRUBIN TOTAL 0.3-1.2 mg/dL 0.6 ALK PHOS 42-98 U/L 100 (H) AST(SGOT) 15-41 U/L 27 SODIUM (LAB) 134-143 mmol/L 142 POTASSIUM (LAB) 3.4-5.0 mmol/L 4.1 CHLORIDE 97-108 mmol/L 101 TOTAL CO2 23-31 mmol/L 33 (H) ALT (SGPT) 13-48 U/L 31 WHITE CELL COUNT 4.4-11.0 K/cu mm 8.1 RED CELL COUNT 4.00-5.20 M/cu mm 4.40 HEMOGLOBIN 12.0-16.0 g/dL 13.8 HEMATOCRIT 36.0-46.0 % 41.3 MCV 80.0-96.0 fL 93.7 MCHC 33.4-35.5 g/dL 33.5 RDW 11.5-15.0 % 13.2 PLATELET COUNT 150-400 K/cu mm 220 TSH 0.34-5.60 uIU/ml 1.30 FREE T4 0.6-1.6 ng/dL 0.7 Edy Mcbride - 03/01/2008 9 :37 PM PDT ENDOCRINOLOGY CLINIC ATTENDING: DR. PARISH REASON FOR VISIT: FOLLOW-UP HYPOTHYROIDISM, OBESITY (S/P GASTRIC BYPASS), OSTEOPOROSIS Subjective: Belinda Meehan is a 47 y.o. female who is here for a followup visit regarding problems be low. In the interim she has undergone laparotomy with ISAIAH for severe abdominal pain (now resolve d) and knee replacement. She states that she has had severe hypotension associated with ebony st pain that required ED visit (records unavailable). She complains of significant fatigue and cervical and lumbar back pain. She state that she feels cold frequently, but denies sym ptoms of hyperthyroidism. She has not been able to obtain follow-up medical care for her hy potension and chest pain yet. She denies CP, and dizziness today. Takes LT4 on empty stomach. Past Medical History Diagnosis Date Chronic Abdominal [...] Pneumonia Abdominal Pain Hx of gastric bypass Patient Active Problem List Diagnoses Date Noted Diarrhea Following Gastrointestinal Surgery [564.4A] 03/01/2008 Osteopenia [733.90X] 08/24/2007 Arthroplasty of the Left Knee [V43.65D] 03/31/2007 LBP (Low Back Pain) [724.2AF] 03/31/2007 Encounter for Long-Term (Current) Use of Opioids [V58.69] 01/11/2007 DJD (Degenerative Joint Disease) of Knee [715.96K] 12/22/2006 Hypothyroidism [244.9AQ] 11/11/2006 Bilateral Knee Pain [719.46J] 11/02/2006 Surgical opinion pending for right knee due DJD/arthritis Major Depressive Disorder, Recurrent Episode, Moderate [296.32] 07/31/2006 Adjustment Disorder with Anxiety [309.24] 07/31/2006 Spondylosis with Myelopathy, Lumbar Region [721.42] 07/02/2006 Herniated Lumbar Intervertebral Disc L4-5 [722.10H] 07/02/2006 Migraine Headache [346.90D] 05/29/2006 since childhood, strong family history, metabolic imbalances, sleep apnea, neck pain, med ication rebound Iron Deficiency [275.0C] 03/09/2006 Metabolic syndrome X 250.80 [250.80] Essential hypertension 401.9 [401.9] Asthma 493.9 [493.9] Muscle pain 729.1 [729.1] Impaired glucose tolerance 790.2 [790.2] Fibromyalgia syndrome 729.1 [729.1] <PROVIDER>DAVIDE BOX Allergies Allergen Reactions Keflex (cephalexin) Sulfa (sulfonamides) Codeine Penicillins Clindamycin Cipro (ciprofloxacin) Tramadol Morphine IM ( only in [facility]) made gut pain worse 08/27/06: Trial of oral MSIR caused leg swelling Clarithromycin Hives Mainly in the legs Current outpatient prescriptions : aspirin chewable (BABY ASPIRIN) 81 mg Oral Tablet, Chewa ble, 2 daily, Disp: , Rfl: buPROPion XL (WELLBUTRIN XL) 300 mg Oral Tablet Sustained Release 24 hr, take 1 tablet (300 mg) by oral route once daily, Disp: , Rfl: nhyeycrrmd-pwutguejwjikp-whzyeusn (FIORICET) 50-325-40 mg Oral Tablet, take 2 as needed for migraine, Disp: , Rfl: CALCIUM 600 WITH VITAMIN D OR, ( 400 unit of Vit D) 1 tab 4 x daily, Disp: , Rfl: Cyanocobalamin 1,000 mcg/mL Injection Syringe, 1 inj q month, Disp: , Rfl: Docusate Sodium 100 mg Oral Tablet, take 1 tablet (100 mg) by oral route once daily at bedt erika as needed, Disp: , Rfl: Furosemide (LASIX) 80 mg OR TABS, take 1 tablet (40mg) by oral route once daily, Disp: , Rf l: levothyroxine 50 mcg Oral Tablet, take 1 tablet (50 mcg) by oral route once daily, Disp: 30 , Rfl: 12 Multivitamin Oral Tablet, 1 tab po bid, Disp: , Rfl: nitroglycerin 0.4 mg Sublingual Tablet, Sublingual, as needed for chest pain, Disp: , Rfl: omeprazole magnesium (PRILOSEC OTC) 20 mg Oral Tablet, Delayed Release (E.C.), take 1 table t by mouth twice daily, Disp: , Rfl: oxycodone CR (OXYCONTIN) 40 mg Oral Tablet Sustained Release 12 hr, take 1 tablet (40 mg) b y oral route every 12 hours, Disp: 10, Rfl: 0 Oxycodone HCl 5 mg Oral Tablet, take 2 tablets (10 mg) by oral route every 4-6 hours as nee ded for pain, Disp: , Rfl: POTASSIUM CHLORIDE SR 20 MEQ TAB, PARTICLES/CRYSTALS, take 1 tablet (20meq) by oral route o nce daily with food, Disp: , Rfl: procaine 1 % Injection Solution, procaine 0.5%, Disp: 12 cc, Rfl: 0 promethazine 25 mg Oral Tablet, as needed, Disp: , Rfl: propranolol CR (INDERAL LA) 160 mg Oral Capsule,Sustained Action 24 hr, take 1 capsule (160 mg) by oral route once daily, Disp: , Rfl: riserdronate (ACTONEL) 35 mg Oral Tablet, take 1 tablet (35 mg) by oral route once weekly i n the morning, at least 30 minutes before the first food, beverage, or medication of the day , Disp: 12, Rfl: 1 year sucralfate (CARAFATE) 1 gram Oral Tablet, 1 tab four times daily as needed for abdominal pa in, Disp: 60, Rfl: 3 VITAMIN C 500 MG CHEWABLE TAB, four times a day, Disp: , Rfl: Physical Exam Filed Vitals: 02/29/2008 1:00 PM BP: 90/60 Pulse: 72 Weight: 86.32 kg (190 lbs 4.8 oz) PainSc: 10 - Worst Possible Pain PainLoc: Generalized Alert, NAD, alert, cooperative, flat affect Thyroid normal size without nodules Cardiac-RRR, no murmur/S3/S4/rubs. Pulses 2+. No bruits Abdomen: No hepatosplenomegaly, masses, or tenderness, well-healing mid-line surgical scar Extremities: 1+ non-pitting LE edema Results for BELINDA MEEHAN Molly (ID#[id number]) as of 03/01/2008 9:22:28 PM Ref. Range 02/29/2008 2:16:00 PM SODIUM (LAB) Latest Range: 134 - 143 mmol/L 142 POTASSIUM (LAB) Latest Range: 3.4 - 5.0 mmol/L 4.1 CHLORIDE Latest Range: 97 - 108 mmol/L 101 TOTAL CO2 Latest Range: 23 - 31 mmol/L 33 (H) BUN Latest Range: 6 - 20 mg/dL 7 CREATININE,PLASMA Latest Range: 0.60 - 1.10 mg/dL 0.61 GLUCOSE,WHOLE BLOOD Latest Range: 60 - 99 mg/dL 97 CALCIUM (LAB) Latest Range: 8.6 - 10.2 mg/dL 9.2 AST(SGOT) Latest Range: 15 - 41 U/L 27 ALT (SGPT) Latest Range: 13 - 48 U/L 31 ALK PHOS Latest Range: 42 - 98 U/L 100 (H) BILIRUBIN TOTAL Latest Range: 0.3 - 1.2 mg/dL 0.6 TOTAL PROTEIN Latest Range: 6.1 - 7.9 g/dL 6.5 ALBUMIN (LAB) Latest Range: 3.5 - 4.7 g/dL 3.6 FREE T4 Latest Range: 0.6 - 1.6 ng/dL 0.7 TSH Latest Range: 0.34 - 5.60 uIU/ml 1.30 WHITE CELL COUNT Latest Range: 4.4 - 11.0 K/cu mm 8.1 RED CELL COUNT Latest Range: 4.00 - 5.20 M/cu mm 4.40 HEMOGLOBIN Latest Range: 12.0 - 16.0 g/dL 13.8 HEMATOCRIT Latest Range: 36.0 - 46.0 % 41.3 MCV Latest Range: 80.0 - 96.0 fL 93.7 MCHC Latest Range: 33.4 - 35.5 g/dL 33.5 RDW Latest Range: 11.5 - 15.0 % 13.2 PLATELET COUNT Latest Range: 150 - 400 K/cu mm 220 Results for BELINDA MEEHAN (ID#[id number]) as of 03/01/2008 9:22:28 PM Ref. Range 07/01/2007 2:32:00 PM VITAMIN D 25 HYDROXY Latest Range: 20 - 57 ng/mL 47 Assessment: 1) Hypothyroidism 2) Osteopenia 3) History of obesity, s/p gastric bypass 4) Hypotension 5) Other chronic problems as above Plan: 1) Clinically and biochemically euthyroid. Cont LT4 at current dose 2) Continue bisphosphonate, vitamin D and calcium. Repeat DEXA in 1-2 years 3) Suspect volume contraction and medication induced hypotension. While this dose of furos emide may relieve the discomfort and dyscosmesis of LE swelling, its use should be carefully monitored to avoid excessive diuresis, pre-renal azotemia, electrolyte abnormalities and hy potension. We have advised her to cut her dose and half and follow-up as soon as possible w ith her PCP. We have referred her to neurology in the hopes that they can help management h er transition off of propranolol which may also be contributing to her hypotension. She nee bernardo good a PCP. We will continue to discuss with her options at [facility] with, hopefully, coordin ation of services. RTC in 3 mos, earlier if problems. Case discussed with Dr. Parish who examined patient and agrees with above. Edy Stephens MD Fellow, Endocrinology and Metabolism documented in this encounte r Plan of Treatment Not on filedocumented as of this encounter Results CBC ONLY (02/29/2008 2:16 [...] | + + + + + | [facility] | [facility] | [place] [address] | | | PATHOLOGY | [address] | | | + + + + + | [place] DEPARTMENT OF | [address] | [place] [address] | | | PATHOLOGY | [address] [...] Performed At | + + + | [id number] Estimated GFR > 60 mL/min/1.73 sq m if non- | [facility] | | [facility] [id number] Estimated GFR > 60 mL/min/1.73 sq m if | DEPARTMENT OF | | [facility] GFR is estimated using the MDRD equation [...] | + + + + + | [facility] | [address] [facility] [facility] | [place] [address] | | | PATHOLOGY | [address] | | | + + + + + | [facility] | [address] | [place] [address] | | | PATHOLOGY | [address] [...] change effective | | | 04/05/07 [facility] ([facility] [address] [facility]) | | | [facility] [address] [address] [facility] | | | [place] [address] | | + + + + + + + + | Performing | Address | City/State/Zipcode | Phone Number | | Organization | | | | + + + + + | [facility] | [address] | [place] [address] | | | LABORATORY | | | [...] change effective | | | 04/05/07 [facility] ([facility] [address] [facility]) | | | [place] [address] [address] [facility] | | | [place] [address] | | + + + + + + + + | Performing | Address | City/State/Zipcode | Phone Number | | Organization | | | | + + + + + | [facility] | [address] | [place] [address] | | | LABORATORY | | | | + + + + + documented in this encounter Visit Diagnoses + + | Diagnosis | + + | Hypothyroidism Unspecified hypothyroidism | + + | Edema | + + | Weak Other malaise and fatigue | + + | Migraine headache Migraine, unspecified, without mention of intractable migraine | | without mention of status migrainosus | + + documented in this encounter"
--- OUTSIDE RECORDS SUMMARY | ~2019-12-13 | XMS | Encounter Summary ---
Demographics + + + | Address | [address] | | | [place] [address] | + + + | Home Phone | | + + + | Preferred Language | Unknown | + + + | Marital Status | | + + + | Adventist Affiliation | 1001 | + + + | Race | Unknown | + + + | Ethnic Group | Unknown | + + + Author + + + | Author | [facility] | | | and [place] | + + + | Organization | [facility] | | | and [...] Team Providers + +------+ + | Care Mine Administrator Supervisor Name | Role | Phone | [...] + + | 02/17/ | Clinical | [facility] | Alanis, | Vitamin B12 | | 2018 | Support | MEDICINE [address] [place] [address] | MD [place]rona | deficiency | | | | MALIK FENTON, | [address] [facility] | | | | | [place] [address] | [place] [address] | | | | | [phone] | [phone] | | | | | | | [...] documented as of this encounter Progress Notes Maggie oMntoya LPN - 02/17/2018 11:15 AM PDT Administrations This Visit cyanocobalamin (VITAMIN [...] | 12/20/ | Office | Audiology | lEisabet Munson MS | | | 2019 | Visit | | [facility] [address] | | | | | [address] [place] | | | | | | [place] [address] | | | | | | [phone] | | | | | | | | +--------+---------+ + + + | 12/20/ | Office | Otolaryngology | Ulysses Genao MD | | | 2019 | Visit | | [address] | | | | | | [address] [place] | | | | | | [place], [place] [address] | | | | | | [phone] | | | | | | | | +--------+---------+ + + + | 02/15/ | Office | Internal Medicine | Alanis, | | | 2019 | Visit | | MD [place] | | | | | | [address] [place] | | | | | | [place] [address] | | | | | | [phone] | | | | | | | | +--------+---------+ + + + documented as of this encounter Visit Diagnoses + + | Diagnosis | + + | Vitamin B12 deficiency Other B-complex deficiencies | + [...] | | | | First dose on [facility] 10/15/17 at 1215 | | | [...]
--- OUTSIDE RECORDS SUMMARY | ~2019-12-13 | XMS | Encounter Summary ---
Demographics + + + | Address | [address] | | | [place] [address] | + + + | Home Phone [...] Author + + + | Author | [facility] | + + + | Organization | [facility] | + + + | Address [...] Providers + +------+ + | Care Clothing Busheler Name | Role | Phone | + +------+ + PCP | Unavailable | + +------+ + Encounter Details +--------+ + + + + | Date | Type | Department | Care Team | Description | +--------+ + + + + | 12/09/ | Inpatient | [facility] | Management, | | | 2005 | Progress | | Discharge Case | | | | Note | | | | +--------+ + + [...] as of this encounter Progress Notes Interface, Field Marketing Manager In - 01/12/2005 6:20 AM PDT JenniferBelinda garner [id number] MED REC NUMBER: [id number] NAME : Belinda Meehan DATE : 1960 DISCHARGE ASSESSMENT AND CASE MANAGEMENT NOTES Chart Reviewed: 2004-12-04 15:29:00 Sorting Machine Operator: Lou Jordan RN Preadmission living situation: family If facilty, name: Additional needs assessment: Case Management Initial Assessment and Ongoing Notes: 12/04/2004 15:29 Rec'd referral from IR printout. Pt presenti jen for panniculectomy per Dr. Chris Padgett 12/06/2004. ----- ------- Living Situation: Pt lives w/ her son, Sree in [place], [place]. Pt also has a caregiver from [facility] come in for 8-9 hours per day when her son is not home. Transportation: Pat [facility]/ [facility] will take pt home (H) (C). Home Health: Pt has an RN from [facility] visit once a month for an assesment (H) or (C). Medical Equipment: Pt states that she has forearm crutches, a shower chair, and is working on getting hand bars installed into her shower. ---- Co-Morbidities: Panniculitis, s/p gastric bypass, arthritis, asthma, NIDDM, GERD, HTN, and sleep apnea. ------ Providers: PCP is Dr. Pedrito Gutierrez in [facility] and Dr. William Meeks [facility] metabolic disorder clinic. Narrative: Pt asked if she needed to bring her crutches. CM asked if she uses them, pt stated not at this time. CM stated ok not to bring them. Pt also asked about Lovenox post-op, CM referred pt back to her MD. No other questions at this time. Encouraged pt to call w/ questions or concerns, [place]. [place] [id number] documented i n this encounter Plan of Treatment Not on filedocumented as of this encounter Visit Diagnoses Not on filedocumented in this encounter"
--- OUTSIDE RECORDS SUMMARY | ~2019-12-13 | XMS | Encounter Summary ---
Demographics + + + | Address | [address] | | | [place] [address] | + + + | Home Phone [...] + + + | Author | [facility] | + + + | Organization | [facility] | + + + | Address [...] Team Providers + +------+ + | Care Geospatial Engineer Name | Role | Phone | [...] | Pain | Diagnoses | Miracle, | [place], | | | | Management | LBP (low | NIHARIKA Jean | Lukasz Rhodes, PhD | | | | | back pain) | [address] | | | | | DJD | [address] | Ave | | | | | (degenerativ | [place], [place] | [place] | | | | | e joint | [address] | [address] | | | | | disease) of | | Phone: | | | | | knee Knee | | [phone] | | | | | pain Major | | Fax: | | | | | depressive | | [phone] | | | | | disorder, | [...] Description | +--------+---------+ + + + | 03/03/ | Office | [facility] | Lukasz Charles, | Major Depressive | | 2007 | Visit | [address] | PhD [address] | Disorder, Recurrent | | | | Mailcode: [facility] | [place], [place] | Episode, Moderate | | | | [facility] | [address] | ([facility]); LBP (Low Back | | | | and Healing, | [phone] | Pain); Bilateral | | | | | | Knee Pain; | | | | Floor [place], [place] | | Fibromyalgia | | | | [address] | | syndrome 729.1; | | | | [phone] | | Adjustment Disorder | | | | | | with Anxiety | +--------+---------+ + + + Social History [...] this encounter Progress Notes Lukasz Charles - 03/03/2008 10:08 AM PDTPROGRESS NOTE: Belinda Meehan is a 47 y.o. female with head, abdominal, back, and leg pain. She report ed that she has been healing from surgery and having some other issues with blood pressure a nd diffuse pain. She has been a bit more active, doing activities with the roundup, walking , visiting with family and friends. She is reading a lot and is going to the [employer] regularly. She mentioned that she is taking breakthrough medication every 4-6 hours every day. She may do better on an increased dose of her long-acting medicine. She mentioned th at she is afraid of spinal surgery. We discussed her fears. She reported stable mood. She reported that she is not sleeping well. Ms. Meehan has ongoing depression and frustration. She is not suicidal. She is strugglin g with diffuse pain and poor sleep. She has been more active recently and seems to be doing good self-care. Diagnosis: Lyman I: 1. (296.32) Major depressive disorder, recurrent, moderate. 2. (309.24) Adjustment disorder with anxiety. 3. 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 Lyman II: Deferred Lyman III: abdominal pain, migraine headache, low back pain. Lyman IV: low finances Lyman V: GAF 55-60 Plan: return with next medical follow-up appointment. Check mood, pain, relaxation, activ ity, distraction, eating. Continue cognitive/behavioral therapy. Total time spent with patient was approximately 45 minutes. LUKASZ CHARLES PHD [facility] [address] [facility] [place] [address] documented in this encount er Plan of Treatment + + +--------+ + + | Name | Type | Priori | Associated Diagnoses | Order Schedule | | | | ty | | | + + +--------+ + + | [facility], | Procedures | Routin | Major Depressive | Ordered: 03/03/2008 | | OFFICE ([id number]) | | e | Disorder, Recurrent | | | | | | Episode, Moderate | | | | | | (HCC) LBP (Low Back | | | | | | Pain) Bilateral | | | | | | Knee Pain | | | | | | Fibromyalgia | | | | | | syndrome 729.1 | | | | | | Adjustment Disorder | | | | | | with Anxiety | | + + +--------+ + + documented as of this encounter Visit Diagnoses + + | Diagnosis | + + | Major depressive disorder, recurrent episode, moderate (HCC) Major depressive | | disorder, recurrent episode, moderate | + + | LBP (low back pain) Lumbago | + + | Bilateral Knee Pain Pain in joint, lower leg | + + | Fibromyalgia syndrome 729.1 Mylagia and myositis, unspecified | + + | Adjustment disorder with anxiety | + + documented in this encounter"
--- OUTSIDE RECORDS SUMMARY | ~2019-12-13 | XMS | Encounter Summary ---
Demographics + + + | Address | [address] | | | [place] [address] | + + + | Home Phone [...] + + + | Author | [facility] | + + + | Organization | [facility] | + + + | [...] Team Providers + +------+ + | Care Semiconductor Package Symbol Stamper Name | Role | Phone | + [...] Description | +--------+--------+ + + + | 02/22/ | Refill | [facility] | Miranda Lambert, | Refill Request | | 2006 | | Center Outpatient | ANP | | | | | Therapy Center [address] | | [address] | | | | | | Outpatient Therapy | | | | | | Center 2nd floor | | | | | | Mailcode: [id number] | | | | | | [place], [place] | | | | | | [address] | | | | | | [phone] | | | +--------+--------+ + + + [...]
--- OUTSIDE RECORDS SUMMARY | ~2019-12-13 | XMS | Encounter Summary ---
Demographics + + + | Address | [address] | | | [place] [address] | + + + | Home Phone [...] Team Providers + +------+ + | Care Boat Fueler Name | Role | Phone | + +------+ + | Maria Esther Cnitron MD | PCP | | + +------+ [...] | | | Metabolism | bypass | [address] | [address] | | | | | Hypovitamino | [address], | Ave | | | | | sis D B12 | [address] | [place], [place] | | | | | nutritional | [place], [place] | [address] | | | | | deficiency | [address] | Phone: | | | | | Other | Phone: | [phone] | | | | | protein-jose manuel | [phone] | Fax: | | | | | nick | Fax: | [phone] | | | | | malnutrition | [phone] | | | | | | Weight | | | | | | | gain | | | | | | | Procedures | | | | | | | CONSULT TO | | | | | | | ENDO | | | | | | | [address] | | | | | | | [address] | | | +--------+--------+ + + + [...] | | | | | | | [facility] | | | | | | | Health and | | | | | | | Healing, | | | | | | | [address] | | | | | | | [place], [place] | | | | | | | [address] | | | | | | | Phone: | | | | | | | [phone] | | | | | | | Fax: | | | | | | | [phone] | +--------+--------+ + + + + Encounter Details +--------+---------+ + + + | Date | Type | Department | Care Team | Description | +--------+---------+ + + + | 09/23/ | Office | Dig[facility]ive [facility] | Patricia Banegas, | H/O gastric bypass | | 2013 | Visit | Center at [address] | RUBY [employer] RAIL[employer] SOFTWARE DEVELOPER [address] | (Primary Dx); | | | | [address] | [facility] [address] | Hypovitaminosis D; | | | | Mailcode: Center | [place], [place] | B12 nutritional | | | | for Health and | [address] | deficiency; Other | | | | Healing, [address] | [phone] | protein-calorie | | | | [facility] [place] | | malnutrition; Weight | | | | [address] | | gain; Teeth decayed | | | | [phone] | | | +--------+---------+ + + + [...] make an appt with me Calories approx. 3659-8143 per day when 3 mos or more out from surgery to maintain weight l oss. Calories may need to be adjusted up for individual needs. I recommend eating 5-6 times per day. prollie Protein 60-100+ gms per day Water: 64 oz per day, your urine should be light yellow. Please let up know if you would like a referral to see the Plug Drill Operator. I would be happy to put in referrals to [facility], medical membership is $198 for 3 mos. If you are 12 mos or more out from surgery and would like referral for excess skin removal please let us know. Call us if you have any questions or concerns, or send [employer] message for non-urgent issue s. Patricia Banegas RN, [facility] Nurse Practitioner for Bariatric Surgery [facility] | [address] | [place], [place] | [address] | documented in this encounter Progress Notes [...] Hives Mainly in the legs Clindamycin Codeine Mhzcoxy-Ipcujdakqn-Nee-Caff Balance problems Fioricet W/Codeine (Ddegvjnjpb-Yvhgzoqkmr-Jiq-Cod) Keflex (Cephalexin) Morphine IM ( only in [facility]) made gut pain worse 08/27/06: Trial of [...] replacement 08/2007 right knee Lumbar fusion 05/2008 L5-Y4angexb with bone spur removals Appendectomy Cholecystectomy section [...] to POC and will call or send [employer] message if any issues. Start time 1325, end time 1353. I spent a total of 28 minutes face to face with this patie nt. Over 50% of visit was in counseling. ~ 2 Minutes of additional time spent reviewing chart prior to visit and documenting after t his visit. Patricia Banegas RN, [facility]- Nurse Practitioner for Bariatric Surgery [facility] | [address] | [place], [place] | [address] | documented in this e ncounter Plan [...]
--- OUTSIDE RECORDS SUMMARY | ~2019-12-13 | XMS | Encounter Summary ---
Demographics + + + | Address | [address] | | | [place] [address] | + + + | Home Phone [...] Team Providers + +------+ + | Care Middle School English Teacher Name | Role | Phone | + +------+ + | Maria Esther Cintron MD | PCP | | + +------+ + Reason for Visit + + + | Reason | Comments | + + + | Lab findings, | 08/28/08 Lab results | | teaching, guidance, | | | and counseling | | + + + Encounter Details +--------+ + + + + | Date | Type | Department | Care Team | Description | +--------+ + + + + | 08/30/ | Telephone | Dig[facility]ive Health | Chris Padgett, | Lab findings, | | 2008 | | Center [address] | [address] | teaching, guidance, | | | | Ave Mailcode: [address] | [address] | and counseling | | | | [facility] | [place], [place] | (08/28/08 Lab | | | | and Healing, | [phone] | results) | | | | [place] [address] [facility] | [phone] | | | | | [place], [place] | | | | | | [address] | | | | | | [phone] | | | +--------+ + + + [...]
--- OUTSIDE RECORDS SUMMARY | ~2019-12-13 | XMS | Encounter Summary ---
Demographics + + + | Address | [address] | | | [place] [address] | + + + | Home Phone [...] Team Providers + +------+ + | Care Inside Steward/Stewardess Name | Role | Phone | + +------+ + | Pedrito Gutierrez MD | PCP | | + +------+ + Reason for Visit + + + | Reason | Comments | + + + | Follow-up visit | | + + + | Fibromyalgia | | + + + Encounter Details +--------+---------+ + + + | Date | Type | Department | Care Team | Description | +--------+---------+ + + + | 07/27/ | Office | [facility] | Caitlin Rivera, | Fibromyalgia | | 2007 | Visit | Rheumatology [address] | PAINT LABORATORY TECHNICIAN | syndrome [address] | | | | [address] | | (Primary Dx) | | | | Mailcode: OPC5 | | | | | | Outpatient Clinic | | | | | | Building [place], | | | | | | [place] [address] | | | | | | [phone] | | | +--------+---------+ + + + [...] + + + | Blood Pressure | 100/70 | 07/27/2007 8:45 AM | | | | | PST | | + + + + + | Pulse | 66 | 07/27/2007 8:45 AM | | | | | PST [...] Weight | 86.6 kg (191 lb) | 07/27/2007 8:45 AM | | | | | PST | | + + + + + | Height | - | - | | + + + + + | Body Mass Index | 28.21 | 06/28/2007 8:32 AM | | | | | PST | | + + + + + documented in this encounter Progress Notes Miguel Caitlin - 07/27/2007 4:00 PM PST Subjective: I periodically see Belinda Meehan for Fibromyalgia. She is here to review h er MRI. She has headaches and eye pain. No changes in her meds. He knee replacement is doing well. She is scheduled for the next in August. Pain: 02/22 Fatigue: 01/22. Current outpatient medications Medication omeprazole magnesium (PRILOSEC OTC) 20 mg Oral Tablet, Delayed Release (E.C.) Oxycodone HCl 5 mg Oral Tablet Propranolol HCl (INDERAL LA) 120 mg Oral Capsule,Sustained Action 24 hr Cyanocobalamin 1,000 mcg/mL Injection Syringe Multivitamin Oral Tablet Risedronate Sodium (ACTONEL) 35 mg Oral Tablet Ferrous Sulfate 325 (65) mg Oral Tablet Docusate Sodium 100 mg Oral Tablet Oxycodone HCl (OXYCONTIN) 40 mg Oral Tablet Sustained Release 12 hr LEVOTHYROXINE OR Furosemide (LASIX) 80 mg OR TABS POTASSIUM CHLORIDE SR 20 MEQ TAB, PARTICLES/CRYSTALS PROMETHAZINE 25 MG TAB CALCIUM 600 WITH VITAMIN D OR VITAMIN C 500 MG CHEWABLE TAB Procaine HCl 1 % Injection Solution Physical Exam: BP 100/70 | Pulse 66 | Wt 86.637 kg (191 lbs) See MRI report attached below. Has a very narrow canal at C1-2 compared to most MRI's I see . The cord does not get pinched, but it does not have much room. 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 There is a disc bulge at T-1 that pokes at the cord, but does not impinge it. Impression and Plan: 1. It is too early to know if her narrow upper cervical canal is what drives her fibromyalg ia symptoms. Only further research will determine that. There are a group of researchers wh o believe widespread pain can often be a result of pressure on the upper cord or brain stem. I am not at the point where I would recommend surgery for fibromyalgia for either cervcical stenosis, Chiari of small posterior fossa. If neurological impairment exists, then surgery is often indicated for canal stenosis or Chiari and often many FM sx resolve. We will keep h er MRI in mind. Perhaps a less invasive treatment than surgery will arrive in the future. Ve ry specific cervical PT and cranio-sacral therapy can help these patients neck, headache and overall pain. I have given her a referral. 2.I will be reviewing some of these MRIs with one of the neurosurgeons. We will review Isabell diaz's. 3. Her T1 disc is likely a peripheral pain generator. PT may help this as well. 4.rtc 4 months. Radiologist 1: JALIL CROWE M.D. EXAM: MRI cervical spine without contrast Flexion and Extension views HISTORY: Cervicalgia TECHNIQUE: Images through the cervical spine, 1.0 Mary magnet, without contrast Sagittal T1 and T2 weighted images in the neutral position. Axial FSE T2, FFE T2, and balanced FFE T2 images through the cervical spine Sagittal T2 images in flexion and extension. COMPARISON: No prior FINDINGS: Marrow signal is within normal limits. No cord signal abnormalities. Craniocervical junction unremarkable. C2/3: Unremarkable C3/4: Minimal right-sided uncovertebral arthrosis with minimal narrowing of the right neural foramen. C4/5: Mild right-sided uncovertebral arthrosis with mild narrowing of the right neural foramen. C5/6: Minimal bilateral uncovertebral arthrosis without spinal stenosis or foraminal stenosis. C6/7: Unremarkable C7/T1: Unremarkable Despite multiple scan attempts extension images are compromised by patient motion and thus accurate measurements cannot be obtained. Flex Neutral Extend C2/3: 1.19 cm 1.11 cm cm C3/4: 1.27 cm 1.21 cm cm C4/5: 1.31 cm 1.29 cm cm C5/6: 1.27 cm 1.20 cm cm C6/7: 1.31 cm 1.24 cm cm C7/T1: 1.23 cm 1.24 cm cm IMPRESSION: 1. Minimal uncovertebral arthrosis primarily at C3-4, C4-5, and C5-6. Belinda had pneumonia when scan was done. She barely remembers getting the scan. Orders Only on 07/01/2007 Component Date Value Range Status WHITE CELL COUNT (K/cu mm) 07/01/2007 8.8 4.4-11.0 Final RED CELL COUNT (M/cu mm) 07/01/2007 4.71 4.00-5.20 Final HEMOGLOBIN (g/dL) 07/01/2007 14.5 12.0-16.0 Final HEMATOCRIT (%) 07/01/2007 41.8 36.0-46.0 Final MCV (fL) 07/01/2007 88.6 80.0-96.0 Final MCHC (g/dL) 07/01/2007 34.7 33.4-35.5 Final RDW (%) 07/01/2007 12.4 11.5-15.0 Final PLATELET COUNT (K/cu mm) 07/01/2007 330 150-400 Final GLUCOSE (LAB) (mg/dL) 07/01/2007 89 60-99 Final BUN (mg/dL) 07/01/2007 7 6-20 Final CREATININE (mg/dL) 07/01/2007 0.7 0.6-1.1 Final TOTAL PROTEIN (g/dL) 07/01/2007 7.0 6.1-7.9 Final ALBUMIN (LAB) (g/dL) 07/01/2007 3.2* 3.5-4.7 Final CALCIUM (LAB) (mg/dL) 07/01/2007 9.1 8.5-10.5 Final BILIRUBIN TOTAL (mg/dL) 07/01/2007 0.7 0.3-1.2 Final ALK PHOS (U/L) 07/01/2007 99* 42-98 Final AST(SGOT) (U/L) 07/01/2007 26 15-41 Final SODIUM (LAB) (mmol/L) 07/01/2007 141 136-145 Final POTASSIUM (LAB) (mmol/L) 07/01/2007 3.8 3.5-5.1 Final CHLORIDE (mmol/L) 07/01/2007 105 98-107 Final TOTAL CO2 (mmol/L) 07/01/2007 29 23-29 Final ALT (SGPT) (U/L) 07/01/2007 27 13-48 Final FOLATE (ng/ml) 07/01/2007 18.8 > 2.9- Final VITAMIN B12 (LAB) (pg/ml) 07/01/2007 1219* 180-914 Final PTH, SERUM (pg/mL) 07/05/2007 56.0 15.0-75.0 Final Test performed by [facility]. VITAMIN D 25 HYDROXY (ng/mL) 07/03/2007 47 20-57 Final Comment: TEST INFORMATION: VITAMIN D, 25-HYDROXY This assay accurately quantifies the sum of vitamin D3, 25-hydroxy and vitamin D2, 25-hydroxy. Deficiency: Less than 20 ng/mL Insufficiency: 20-29 ng/mL Optimum Level: 30-80 ng/mL Possible Toxicity: Greater than 80 ng/mL Performed by [employer], [address] [place] [id number] [email or web address], Sincere Jordan MD - Lab. Director documented in this encount er Plan of Treatment Not on filedocumented as of this encounter Visit Diagnoses + + | Diagnosis | + + | Fibromyalgia syndrome 729.1 - Primary Mylagia and myositis, unspecified | + + documented in this encounter"
--- OUTSIDE RECORDS SUMMARY | ~2019-12-13 | XMS | Encounter Summary ---
Demographics + + + | Address | [address] | | | [place] [address] | + + + | Home Phone | | + + + | Preferred Language | Unknown | + + + | Marital Status | Single | + + + | Confucianism Affiliation | ADV | + + + [...] Team Providers + +------+ + | Care Courtesy Van Driver Name | Role | Phone | + +------+ + PCP | Unavailable | + +------+ + Encounter Details +--------+ + + + + | Date | Type | Department | Care Team | Description | +--------+ + + + + | 01/21/ | Abstract | General Surgery | Chris Padgett, | | | 2004 | | [address] | [address] | | | | | Loop Mailcode: | [address] | | | | | [id number] Physician's | [place], [place] | | | | | [address] | [address] | | | | | [place], [place] | [phone] | | | | | [address] | | | | | | [phone] | | | +--------+ + + + [...]
--- OUTSIDE RECORDS SUMMARY | ~2019-12-13 | XMS | Encounter Summary ---
Demographics + + + | Address | [address] | | | [place] [address] | + + + | Home Phone [...] Author + + + | Author | [facility] | + + + | Organization | [facility] | + + + | Address [...] Team Providers + +------+ + | Care Rivet Bucker Name | Role | Phone | + [...] + + | 09/14/ | Telephone | Dig[facility]ive Health | Chris Padgett, | Other | | 2008 | | [place] [address] | [address] | | | | | [place] Mailcode: [address] | [address] | | | | | [facility] | [place], [place] | | | | | and Healing, | [address] | | | | | [place] [address], [facility] | [phone] | | | | | Floor [place], [place] | | | | | | [address] | | | | | | [phone] | | | +--------+ + + + [...]
--- OUTSIDE RECORDS SUMMARY | ~2019-12-13 | XMS | Encounter Summary ---
Demographics + + + | Address | [address] | | | [place] [address] | + + + | Home Phone [...] Team Providers + +------+ + | Care Sausage Stringer Name | Role | Phone | + [...] | | | [facility] | [place], [place] | | | | | [address] | [address] | | | | | [address] | [phone] | | | | | [facility] | | | | | | Physician's | | | | | | Pavilion [place], | | | | | | [place] [address] | | | | | | [phone] | | | +--------+ + + + [...]
--- OUTSIDE RECORDS SUMMARY | ~2019-12-13 | XMS | Encounter Summary ---
Demographics + + + | Address | [address] | | | [place] [address] | + + + | Home Phone [...] + + + | Author | [facility] | + + + | Organization | [facility] | + + + | [...] Providers + +------+ + | Care Manager Contracting Name | Role | Phone | + +------+ + PCP | Unavailable | + +------+ + Encounter Details +--------+ + + + + | Date | Type | Department | Care Team | Description | +--------+ + + + + | 12/19/ | Office | [facility] | Clinic, Surgery | Progress Note | | 2005 | Visit-Trans | | | | | [...] as of this encounter Progress Notes Interface, Cutter And Paster Press Clippings In - 01/12/2005 10:09 AM PDT [id number] [facility] Date: 12/19/2004 Clinic: General Surgery Clinic Primary Care Physician: Dr. Pedrito Gutierrez. Subjective: Mrs. Meehan returns post paniculectomy for removal of reshma and Naeem-Claudio drain tubes. She is having additional weight loss after her paniculectomy, and her current weight is 173.1. She has noted some drainage on bilateral sites of the excision of redundant skin. She denies fever, chills, nausea, or vomiting. Home health has visited the patient and provided DuoDerm for a small sacral decubitus. We were told that it is about the size of a dyne at present. The patient continues to feel that she has sufficient protein and fluidintake as well as nutrients. She denies dizziness or low blood pressure effects. Resolution of medical comorbidities include hypertension, obstructive sleep apnea, and diabetes. She has a small amount of oxycodone left and does not feel that she needs any refilling. Objective: General: She is a well-developed woman in no apparent distress. Vital Signs: Weight 173.7, blood pressure 100/60, pulse 76, and respirations 16. Lungs: Clear to auscultation bilaterally. Heart: Regular rate and rhythm without murmur, rub, or gallop. Abdomen: Soft and nontender. Two Naeem-Claudio drains are removed intact in the lower pubic area. Dressings are placed and no bleeding noted. Multiple reshma are removed from the lower pubic from hip to hip as well as half midline. All wound edges are well approximated. Bilateral thigh reshma also removed. Small amount of left inner thigh dried drainage at the confluence of the incisions. Steri-Strips are applied bilaterally in order to secure wound edges and permit for slight drainage as needed. Surgifit stretch netting applied over bilateral thighs to keep dressings in place. The patient has excellent recovery with no evidence of infection. Assessment: Ms. Meehan is pleased with the cosmetic effect from her thigh plasty and paniculectomy. She was doing well without evidence of infection. Reshma and drains were removed showing intact skin and excellent recovery. She will continue to monitor her wound sites and will call with any questions. Plan: 1. Return to clinic in 2 months as needed. Due to extreme distance, she will follow up with her primary care physician who has been supportive and vigilant of her progress post paniculectomy. 2. Primary care physician to continue with laboratory evaluation over time in relation to past history of gastric bypass surgery. The patient continues on her vitamins as well as vitamin B12. Melisa Thorne / SHARIF [id number] / [id number] / [id number] / [id number] cc: Pedrito Gutierrez M.D. [address] [address] FAX: [phone] Chris Padgett M.D. General Surgery, [facility] Electronically signed by Kenisha Melton 12-25-2004 04:28:39 PM documented i n this encounter Plan of Treatment Not on filedocumented as of this encounter Visit Diagnoses Not on filedocumented in this encounter"
--- OUTSIDE RECORDS SUMMARY | ~2019-12-13 | XMS | Encounter Summary ---
Demographics + + + | Address | [address] | | | [place] [address] | + + + | Home Phone [...] Team Providers + +------+ + | Care Washroom Cleaner Name | Role | Phone | + +------+ + | Sulaiman Carrera MD | PCP | | + +------+ + Encounter Details +--------+ + + + + | Date | Type | Department | Care Team | Description | +--------+ + + + + | 03/19/ | Ancillary | Registration [id number] | | | | 2004 | Registratio | [address] | | | | | n | [place] Mailcode: [id number] | | | | | | [place], [place] | | | | | | [address] | | | | | | [phone] | | | +--------+ + + + [...]
--- OUTSIDE RECORDS SUMMARY | ~2019-12-13 | XMS | Encounter Summary ---
Demographics + + + | Address | [address] | | | [place] [address] | + + + | Home Phone [...] Author | [facility] | + + + | Organization | [facility] | + + + | Address | [...] Team Providers + +------+ + | Care Press Box Custodian Name | Role | Phone | [...] | Procedures | [address] | [place] | | | | | CONSULT TO | [facility] | [address] | | | | | GI PROCEDURE | Rd | floor | | | | | UNIT: SM | [place], [place] | [place], [place] | | | | | [address] | [address] | [address] | | | | | CAPSULE | Phone: | Phone: | | | | | ENDOSCOPY | [phone] | [phone] | | | | | | | Fax: | | | | | | | [phone] | +--------+--------+ + + + + Consultation [...] | | | | | Procedures | [facility] | [place], [place] | | | | | CONSULT TO | Rd | [address] | | | | | PAIN CENTER | [place], [place] | | | | | | | [address] | | | | | | | Phone: | | | | | | | [phone] | | +--------+--------+ + + + + Encounter Details +--------+---------+ + + + | Date | Type | Department | Care Team | Description | +--------+---------+ + + + | 04/07/ | Office | [facility] Division of | Carlos Arreola, | Iron Deficiency; | | 2005 | Visit | Gastroenterology/Hep | [address] | Chronic Abdominal | | | | atology [address] | [facility] | Pain | | | | [address] | [place] [address] | | | | | Mailcode: PV310 | [phone] | | | | | [facility] | | | | | | [address] | | | | | | [place], [place] | | | | | | [address] | | | | | | [phone] | | | +--------+---------+ + + + [...] December reviewed and normal (past ed below). [facility] labs received and reviewed: neg O&P UPPER [...] HEPATIS NODES. Transcribed By: Armaan Rivera : [id number] : 1224 Approved By: CT ABDOMEN AND [...] HEPATIS NODES. Transcribed By: Armaan Mata : [id number] : 1224 Approved By: Carlos Benton - 3:59 PM PDTPt seen previously seen by az for chronic pain and PK, returns to revie w endoscopy results. Biopsies [...]
--- OUTSIDE RECORDS SUMMARY | ~2019-12-13 | XMS | Encounter Summary ---
Demographics + + + | Address | [address] | | | [place] [address] | + + + | Home Phone [...] Team Providers + +------+ + | Care Livestock Farmworker Name | Role | Phone | + +------+ + PCP | Unavailable | + +------+ + Encounter Details +--------+ + + + + | Date | Type | Department | Care Team | Description | +--------+ + + + + | 08/11/ | Office | | Note, Outpatient | Progress Note | | 2006 | Visit-Trans | | Clinic | | [...] as of this encounter Progress Notes Interface, Shipping Receiving Manager In - 08/30/2005 2:07 AM PST [id number] [facility] Date: 08/11/2005 Clinic: Colorectal Surgery Clinic/Bariatric Surgery Clinic Subjective: The patient is a 45-year-old woman who is here today for a followup after exploratory laparoscopy. The patient is 1-1/2 year status post gastric bypass surgery and had been doing well. However, after her abdominoplasty, she started having intermittent abdominal pains that appeared consistent with partial small-bowel obstruction. She was taken to the Operating Room on July 25, 2005, where she underwent extensive lysis of adhesions. It should be made particular note that the patient had significant right lower quadrant adhesions especially in her cecal area and that this was the area she had been complaining of greatest amounts of pain prior to her operation. The patient had also, approximately 20 years past, an open hysterectomy. The patient comes in today noting that her pain has almost entirely resolved. She has no nausea and no vomiting. No fevers, no chills, and she has had bowel movements that are normal for her (2 to 4 times per day). She says that she occasionally takes oxycodone in the night for continued right lower quadrant pain, but that this is very dissimilar from the preoperative pain and is resolving. Objective: Vital Signs: The patient's weight today is 161.5, blood pressure 110/70, pulse is 68, pain is 7/10. Assessment: This is a 45-year-old woman who is postoperative day 17 status post exploratory laparoscopy and extensive pelvic lysis of adhesions. The patient is doing quite well today with near total resolution of her abdominal pain symptoms and reasonable pain control. She does request medications today as she is out of her pain medications. In addition, the patient is approximately an year and a half after her Zoe-en-Y gastric bypass surgery. Her current weight is 163 pounds, and she has lost 102.6% of her excess weight. From a bypass surgery perspective, she is also doing quite well. Plan: 1. Prescription was provided for oxycodone #20. 2. Regarding the patient's most recent operation, she has no need to return to clinic unless she has recurrent signs of small bowel obstruction. 3. In regards to the patient's gastric bypass surgery, the patient should return to clinic in approximately 6 months to be on her annual schedule for checkups. Rebekah Navas M.D. Chris Padgett M.D. / [id number] / [id number] / [id number] / [id number] E: 08/14/2005 [email or web address] cc: Dr. Sarah De Jesus, [place] Electronically signed by Chris Padgett 08-29-2005 03:28:30 PM documented i n this encounter Plan of Treatment Not on filedocumented as of this encounter Visit Diagnoses Not on filedocumented in this encounter"
--- OUTSIDE RECORDS SUMMARY | ~2019-12-13 | XMS | Encounter Summary ---
Demographics + + + | Address | [address] | | | [place] [address] | + + + | Home Phone [...] + + | Author | [facility] | | | and [place] | + + + | Organization | [facility] | | | and [...] Team Providers + +------+ + | Care Commercial Real Estate Appraiser Name | Role | Phone | + [...] | Esarey, | | | | | Fluid in | Emmy-Tajt | [place], [place] | | | | | ears/self/Fa | i, | CCC-A [address] | | | | | milhoa | [place] | [address] | | | | | Medicare/Ion | , MD [address] [place] | | | | | escu | [address] | [place], [place] | | | | | Procedures | [place], | [address] Phone: | | | | | OFFICE VISIT | [place] | [phone] | | | | | REGULAR | [address] | Fax: | | | | | | Phone: | [phone] | | | | | | [phone] | | | | | | | Fax: | | | | | | | [phone] | | +--------+--------+ + + + + Encounter Details +--------+---------+ + + + | Date | Type | Department | Care Team | Description | +--------+---------+ + + + | 10/18/ | Office | [facility] | Elisabet Munson, MS | Encounter for | | 2014 | Visit | AUDIOLOGY AND | CCC-A [address] | hearing evaluation | | | | HEARING AID SERVICES | [address] | (Primary Dx) | | | | [address] | [place] [address] | | | | | [facility] [address] [facility] | [phone] | | | | | [place] [address] | | | | | | [phone] | | | +--------+---------+ + + + [...] this encounter Progress Notes Elisabet Munson MS CCC-A - 10/18/2014 2:54 PM PDTReferring Provider: [place] singh M.D. Results of Hearing Test: Right ear--Pure tone air conduction testing showed a 20-30dB thres hold at 250Hz through 8KHz . Left ear --Pure tone air conduction testing showed a 20-35dB threshold at 250Hz through 8KHz. Speech Recognition Thresholds were 15dB in the right ear and 15dB in the left ear. Speech Discrimination Scores were 100% in right ear and 100% in the left ear. Tympanometry showed normal type A tracing in both ears. Impression and Recommendation: Essentially normal hearing sensitivity in both ears. Follow-up care with Dr. Genao, Sr. Thank you. documented in thi s encounter Plan of Treatment +--------+---------+ + + + | Date | Type | Specialty | Care Team | Description | +--------+---------+ + + + | 12/20/ | Office | Audiology | Elisabet Munson MS | | | 2019 | Visit | | [facility] | | | | | | [place] | | | | | | [place] [address] | | | | | | [phone] | | | | | | | | +--------+---------+ + + + | 12/20/ | Office | Otolaryngology | Ulysses Genao MD | | | 2019 | Visit | | [address] | | | | | | [address] [place] | | | | | | [place] [address] | | | | | | [phone] | | | | | | | | +--------+---------+ + + + | 02/15/ | Office | Internal Medicine | Alanis, | | | 2019 | Visit | | MD [place] | | | | | | [address] [place] | | | | | | [place] [address] | | | | | | [phone] | | | | | | | | +--------+---------+ + + + documented as of this encounter Procedures + +--------+ + + + | Procedure Name | Priori | Date/Time | Associated Diagnosis | Comments | | | ty | | | | + +--------+ + + + | DIAGNOSTIC REPORT - | | 10/18/2014 | | | | EXTERNAL SCAN | | 12:00 AM | | | | | | PDT | | | + +--------+ + + + documented in this encounter Visit Diagnoses + + | Diagnosis | + + | Encounter for hearing evaluation - Primary | + + documented in this encounter"
--- OUTSIDE RECORDS SUMMARY | ~2019-12-13 | XMS | Encounter Summary ---
Demographics + + + | Address | [address] | | | [place] [address] | + + + | Home Phone [...] Team Providers + +------+ + | Care Imcu Specialist Name | Role | Phone | + +------+ + PCP | Unavailable | + +------+ + Encounter Details +--------+ + + + + | Date | Type | Department | Care Team | Description | +--------+ + + + + | 09/10/ | Office | | Report, Outpatient | [...] as of this encounter Progress Notes Interface, Bow Stapler In - 01/11/2005 11:07 PM PDT Referred From and Faxed To: Pedrito Gutierrez M.D. Referred To: Aissatou De Jesus M.D. Consulting Physician: Aissatou De Jesus M.D. Consultation Date: 09/11/2003 Chief Complaint: Not dictated. Reason for Requested Consultation: This is a 43-year-old female who was last seen on 06/26/[address] Sesar Nash in Rheumatology Clinic. At that time, the patient was diagnosed with fibromyalgia based on her history of fatigue and generalized pain at specific pressure points, consistent with a diagnosis of fibromyalgia. She was started on amitriptyline 25 mg p.o. q.h.s. with hopes of improving her sleep disturbance. The patient states that this did improve her sleep disturbance, from getting approximately three to approximately six nights per week of restful sleep and she was happy with this. She did, however, feel that her pain or fatigue were improved, although she did feel more rested in the morning. The patient recently has had some problems with a right ankle fracture for which she is being seen by an orthopedist in [place]. She brings her brace today which she states is going well. The patient, however, yesterday awoke with neck stiffness and pain with spasming type pains in the area of her neck. She was seen in the emergency room last night in [place] for injection after a migraine. She states that the range of motion in her neck is very limited in all directions and she has very tight neck muscles which are her biggest distress right now. The patient told me that she will be scheduled for gastric bypass surgery next where she will have her final meeting with a dietitian and surgeon prior to scheduling. Medications: The patient is currently taking diclofenac b.i.d., Darvocet p.r.n. for pain. Consultation Findings and Recommendations: Objective: Vital signs are reviewed. GENERAL: This is a morbidly-obese female who appears to be in no acute distress. She has a large brace on her right leg. HEENT: Pupils are equal, round and reactive to light. Extraocular motions are intact. There is no evidence of conjunctivitis. There is no evidence of oral lesions. HEART: Regular rate and rhythm without murmur. LUNGS: Clear to auscultation bilaterally. ABDOMEN: Obese, but soft. MUSCULOSKELETAL: She has slight increase in bony thickness over her DIP and PIP joints diffusely. There is no MCP involvement. There is no carpometacarpal involvement. On examination of her knees, there is diffuse crepitus throughout range of motion with moderate midline tenderness. In addition, the patient has tenderness just superiorly over the pressure point area of her fibromyalgia. The patient has several notable pressure points, most profoundly over the mid trapezius, anterior acromial, sternal joint, the lateral epicondyle, the lateral aspect of the lower back and the medial aspects of both knees. Range of motion of her neck is extremely limited in all directions, most profoundly on lateral flexion to the right. Radiology: Previous images from 06/26/03: The patient's hands had no evidence of inflammatory arthritis or osteoarthritis. The wrists also appeared normal with no evidence of inflammatory or erosive arthritis. Assessment and Plan: This is a morbidly obese female with recently diagnosed fibromyalgia, in addition to probable osteoarthritis. Osteoarthritis: We will not do any further imaging at this time as this would not clearly change our course of action. The most important thing that this patient can do for her osteoarthritis is to continue with gastric bypass workup with hopes of weight loss which will allow her to further exercise and hopefully progressively lose weight over time, taking the pressure off the joints. She will continue with NSAIDs also for pain relief. Fibromyalgia: This patient, as above, has symptomatology clearly consistent with fibromyalgia with some actual improvement on amitriptyline. Considering her acute exacerbation of neck stiffness, I will treat her with Flexeril up to 5 mg t.i.d. She was given 21 pill sample of this. She will also follow-up in approximately three months for trigger point injection in the Rheumatology Clinic. Overall, the patient has no indication for further evaluation beyond pressure point injections in the Rheumatology or Fibromyalgia Clinic. Please feel free to refer the patient if any additional problems arise. The patient was seen and staffed with Dr. Lozoya who agrees with the above plans. Aissatou De Jesus M.D. Domingo Lozoya M.D. Gokul P [phone] cc: Pedrito Gutierrez MD [address] [place], [place] [id number] signed by Interface, Bow Stapler In at 5 11:07 PM PDTdocumented in this encounter Plan of Treatment Not on filedocumented as of this encounter Visit Diagnoses Not on filedocumented in this encounter"
--- OUTSIDE RECORDS SUMMARY | ~2019-12-13 | XMS | Encounter Summary ---
Demographics + + + | Address | [address] | | | [place] [address] | + + + | Home Phone [...] Team Providers + +------+ + | Care Complaint Clerk Name | Role | Phone | + +------+ + | Pedrito Gutierrez MD | PCP | | + +------+ + Reason for Visit + + + | Reason | Comments | + + + | LBP - Low back pain | | + + + Encounter Details +--------+---------+ + + + | Date | Type | Department | Care Team | Description | +--------+---------+ + + + | 06/28/ | Office | [facility] | Delfina Molina, | LBP (Low Back Pain); | | 2007 | Visit | Pain Center at | ANP | Encounter for | | | | [facility] | | Long-Term (Current) | | | | [address] | | Use of Opioids; | | | | Mailcode: [id number] | | Arthroplasty of the | | | | [place] [facility] | | Left Knee; Bilateral | | | | and Healing, | | Knee Pain; DJD | | | | Building | | (Degenerative Joint | | | | Floor [place], [place] | | Disease) of Knee; | | | | [address] | | Spondylosis with | | | | [phone] | | Myelopathy, Lumbar | | | | | | Region; Migraine | | | | | | Headache; Adjustment | | | | | | Disorder with | | | | | | Anxiety; Major | | | | | | Depressive Disorder, | | | | | | Recurrent Episode, | | | | | | Moderate (HCC); | | | | | | Fibromyalgia [...] + + + | Blood Pressure | 106/60 | 06/28/2007 8:32 AM | | | | | PST | | + + + + + | Pulse | 69 | 06/28/2007 8:32 AM | | | | | PST | | + + + + + | Temperature | 36.9 C (98.4 F) | 06/28/2007 8:32 AM | | | | | PST | | + + + + + | Respiratory Rate | 18 | 06/28/2007 8:32 AM | | | | | PST | | + + + + + | Oxygen Saturation | 97% | 06/28/2007 8:32 AM | | | | | PST | | + + + + + | Inhaled Oxygen | - | - | | | Concentration | | | | + + + + + | Weight | 86.2 kg (190 lb) | 06/28/2007 8:32 AM | | | | | PST | | + + + + + | Height | 175.3 cm (5' 9") | 06/28/2007 8:32 AM | | | | | PST | | + + + + + | Body Mass Index | 28.06 | 06/28/2007 8:32 AM | | | | | PST | | + + + + + documented in this encounter Patient Instructions Patient Instructions Delfina Molina - 06/28/2007 9:35 AM PSTContinue with Oxycontin 40 mg 1 tablet every 12 hours Decrease Trileptal by 1/2 tablet (75 mg) every 5 days till noted change in migraines or sina n, keep decreasing in this manner till off. Continue with oxycodone PRN NTE 4 per day Continue with Dr. Ogden schedule follow up visits today Schedule physical therapy with [place] you know what you want to do as far as working with Madeleine evans or in [facility]. Epidural steroid injections are awhile call to schedule with Dr. Kylah SHEEHAN. documented in this encounter Progress Notes Delfina Molina - 06/28/2007 8:56 AM PSTFormatting of this note might be different from th e original. 06/28/2007 Belinda Meehan is a 47 y.o. female [facility] Return Visit Chief Complaint: Chief Complaint Patient presents with LBP - Low back pain History of Present Illness: Belinda Meehan is a 47 y.o. 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 Belinda Meehan is here today for a follow up visit to review chronic pain management plan of care. Since prior visit this her condition has improved, though she does reported incre ased symptoms in the lower back and behind the legs. She reports left shoulder pain [ had before] now a dull ach deep " in the bone" no insighting event or history of injury, she rec alls having this type of pain before, aggrevated by cold dry weather and movement, relieved by heat have new pain complaints on this visit. Expectations for this visit include "this is my usually follow up isn't it" A Brief Pain Inventory and a pain drawing has be completed, which I reviewed. Current pain intensity on a VA Scale 0-10 is: 9 with current therapy providing 60% relief of pain. The worst pain today is located in the left shoulder and described as tightness and aching, restriction in movement to the left aggrevated by twisting and stretching the neck muscles, relieved by heat and resting. She reports 2-3 weeks of bedrest for pneumonia as a potencia llly aggrevating factor. She acknowledges that her fibromyalgia has been worse since this prolonged bedrest and illness. She reports having an increase in the frequency of migraines "a lot of pressure behind my e yes" , she reports going to the opthalmologist end of last month [ see's every 6 months sin e optic nerve hemorrhagia] "resently starting to regain close up colors in the left eye] . She reports not decreasing the Trileptal "I forgot" [ reason for order to decrease dose was memeory deficits] she reports feeling the deficts were from the pneumonia, she reports wanti ng to stay on it "for a little while longer", though she is not certain that it is helping w ith her migraines or the leg pain. Hx of TESI two years ago helped relieved the lower back and leg pain "made me forget about the pain for awhile". Total of three in 6 weeks. Treatment since last visit includes: 1. medication management: Oxycontin/oxycodone and Trileptal 2. Physical therapy: locall for knee rehabilitation after surgery about to complete: She re ports increased ROM and decreased swelling and pain in the left knee since prior visit. 3. She has not seen Dr Ogden "he has no openings" she is interested in schedule follow up Since prior visit, mood is reported to be: depressed and sleep reported to be disrupted by pain and postitioning difficulties, is improving since she has recovered from pneumonia tho ugh. Review of Systems: Bones, Joints, and Muscles: joint pain, muscle pain and stiffness Gastrointestinal System: negative Genitourinary System: negative Nervous System: negative Psychiatric History: depressed mood, sleep disturbance and decreased energy Since prior visit, there have been no changes in past medical history, past surgical histor y, family history, or social history. She reprots being concerned about Dr Gutierrez's implying that she is "addicted to medication s" Three weeks of sickness with pneumonia responded to Z-pack [tried tow other antibiotices, a dverse effects with clarithromycin]. Found it difficult to find a comfortable position whil e having ot be in bed so long. Son primary social worker palliative care. Current outpatient medications Medication Sig Dispense Refill Oxycodone HCl 5 mg Oral Tablet take 2 tablets (10 mg) by oral route every 4-6 hours as needed for pain Propranolol HCl (INDERAL LA) 120 mg Oral Capsule,Sustained Action 24 hr take 1 capsule (120 mg) by oral route once daily Oxcarbazepine (TRILEPTAL) 150 mg Oral Tablet take 1 tablets (150 mg) by oral route 2 ti mes per day Procaine HCl 1 % Injection Solution procaine [...] Fibromyalgia Intervertebral Disc Herniation 03/31/07 Reduced Vision Past Surgical History Procedure Date Gastric bypass [...] Migraine Collection Information Collection Date Collection Time Resulting Agency 05/25/2007 4:06 PM [facility] DEPARTMENT OF RADIOLOGY Component Results MR CERVICAL SPINE WO CONTRAST: Radiologist 1: JALIL CROWE M.D. EXAM: MRI [...] uncovertebral arthrosis primarily at C3-4, C4-5, and Physical examination: BP 106/60 | Pulse 69 | Temp (Src) 98.4 F (36.9 C) (Oral) | Resp 18 | Ht 1.753 m (5' 9") | Wt 86.183 kg (190 lbs) | SpO2 97% Body mass index is 28.06 kg/(m^2). General appearance: Alert in no acute distress, well groomed, pleasant Cervical spine: tightness with flexion extension and rotation, painful with palpation in th e left occipital and trapexius with trigger points at the middle clavicular line into the AC J no shoulder deformity of pain with ROM. Poor body habitus in sitting. Impression: 724.2AF LBP (Low Back Pain) V58.69 Encounter for Long-Term (Current) Use of Opioids V43.65D Arthroplasty of the Left Knee 719.46J Bilateral Knee Pain 715.96K DJD (Degenerative Joint Disease) of Knee 721.42 Spondylosis with Myelopathy, Lumbar Region 346.90D Migraine Headache 309.24 Adjustment Disorder with Anxiety 296.32 Major Depressive Disorder, Recurrent Episode, Moderate 729.1 Fibromyalgia syndrome 729.1 Belinda Meehan is a pleasant 47yo obese female with chronic musculoskeletal pain due to d egeneraitve disc disease/lumbar radiculopathy, fibromyalgia and degenerative joint disease o f the knees. Hx of right knee arthroplasty. It is good to see the her right knee is impro ving in terms of pain, less swelling and improved function, that she is continuing with her physical rehab. Belinda has complaints of neck and left shoulder pain. I reviewed resent Cervical spine MRI which shows mild uncovertebral arthrosis primarily at C3-4, C4-5, however her physical exam was unremarkable for mechanical pain rather there was a dominance of myof asial trigger points and tenderness with restriction. No myelopathy, neuropathy or radicul opathy of the UE. He wrost pain is in the lower back and legs she may benefit with repeatin g a TESI and addressing this area with physical therapy. Belinda Meehan was compliant with all aspects of chronic opioid therapy , is using the me dication as directed, demonstrates benefits, and has no serious adverse effects. There were no significant cognitive or mood impairments. There is no evidence of diversion past or pre sent. I would like her to try decreasing the Trileptal and monitor how this affects her migr simba frequency intensity or duration and her lower back/leg pain. If this is not helping w ith her pain conditions there is not need for her to on it. She has tried and failed Neuron tin, Lyrica, and Amitriptyline, hopefully the inderal will be helpfu, otherwise I suggested she discuss biofeedback with Dr. Ogden PhD. Recommendations/Plan: A 30 minute visit with greater than 50% spent in reviewing the progress notes and counselli ng/education of the patient. 1. Continue with Oxycontin 40 mg 1 tablet every 12 hours 2. Decrease Trileptal by 1/2 tablet (75 mg) every 5 days till noted change in migraines or pain, keep decreasing in this manner till off. 3. Continue with oxycodone PRN NTE 4 per day 4. Continue with Dr. Ogden schedule follow up visits today 5. Schedule physical therapy [facility] Arora once she has finished with her knee rehabi litaion [ estimated in two weeks]. 6. Epidural steroid injections are an option of care for her lumbar radicular pain. 7. Schedule follow up in 4-6 weeks or sooner if needed - The pateint was asked to call the clinic with any concerns or questions. DELFINA MOLINA [facility] Mail code CH 4P [facility] [address] [facility] [address] Ailyn Bello 06/28/19 08 8:38 AM PSTCMA History: PMH/PSH/SH/ review 1. Has your pain changed from [...] of other medications | + + | Arthroplasty of the Left Knee Knee joint replacement by other means | + + | Bilateral Knee Pain Pain in joint, lower leg | + + | DJD (degenerative joint disease) of knee Osteoarthrosis, unspecified whether | | generalized or localized, lower leg | + + | Spondylosis with myelopathy, lumbar region | + + | Migraine headache Migraine, unspecified, without mention of intractable migraine | | without mention of status migrainosus | + + | Adjustment disorder with anxiety | + + | Major depressive disorder, recurrent episode, moderate (HCC) Major depressive | | disorder, recurrent episode, moderate | + + | Fibromyalgia syndrome 729.1 Mylagia and myositis, unspecified | + + documented in this encounter
--- OUTSIDE RECORDS SUMMARY | ~2019-12-13 | XMS | Encounter Summary ---
Demographics + + + | Address | [address] | | | [place] [address] | + + + | Home Phone [...] Providers + +------+ + | Care Social Work Lecturer Name | Role | Phone | + +------+ + | Pedrito Gutierrez MD | PCP | | + +------+ + Reason for Visit + + + | Reason | Comments | + + + | Diarrhea | | + + + Encounter Details +--------+ + + + + | Date | Type | Department | Care Team | Description | +--------+ + + + + | 02/14/ | Telephone | [facility] | Chris Padgett, | Diarrhea | | 2007 | | Center [address] | [address] | | | | | Bethanie Mailcode: CH4S | [address] | | | | | [facility] | [place], [place] | | | | | and Healing, | [address] | | | | | [place] [address], [facility] | [phone] | | | | | Floor [place], [place] | | | | | | [address] | | | | | | [phone] | | | +--------+ + + + [...]
--- OUTSIDE RECORDS SUMMARY | ~2019-12-13 | XMS | Encounter Summary ---
Demographics + + + | Address | [address] | | | [place] [address] | + + + | Home Phone [...] Team Providers + +------+ + | Care Guidance Counselor Name | Role | Phone | + [...] | | | | | | | [facility] | | | | | | [facility] and | | | | | | | Healing, | | | | | | | [address] | | | | | | | [place], [place] | | | | | | | [address] | | | | | | | Phone: | | | | | | | [phone] | | | | | | | Fax: | | | | | | | [phone] | +--------+--------+ + + + + Encounter Details +--------+---------+ + + + | Date | Type | Department | Care Team | Description | +--------+---------+ + + + | 01/10/ | Office | [facility] | Chris Padgett, | Status post | | 2009 | Visit | Center [address] | [address] [facility] | bariatric surgery | | | | Ave Mailcode: CH4S | [address] | (Primary Dx) | | | | [facility] | [place], [place] | | | | | and [place], | [address] | | | | | [facility] | [phone] | | | | | Floor [place], [place] | | | | | | [address] | | | | | | [phone] | | | +--------+---------+ + + + [...] and I asked her to see a packing machine tender where she lives. Will obtain CBC and [...]
--- OUTSIDE RECORDS SUMMARY | ~2019-12-13 | XMS | Encounter Summary ---
Demographics + + + | Address | [address] | | | [place] [address] | + + + | Home Phone [...] Author | [facility] | + + + | Organization | [facility] | + + + | Address | [...] + +------+ + | Care Sound Effects Person Name | Role | Phone | + +------+ + | Sulaiman Carrera MD | PCP | | + +------+ + Encounter Details +--------+ + + + + | Date | Type | Department | Care Team | Description | +--------+ + + + + | 11/18/ | Document-Sc | UNKNOWN DEPARTMENT | Unknown . | | | 2005 | anned | [address] | | | | | | [address] | | | | | | [place], [place] | | | | | | [address] | | | +--------+ + + + [...]
--- OUTSIDE RECORDS SUMMARY | ~2019-12-13 | XMS | Encounter Summary ---
Demographics + + + | Address | [address] | | | [place] [address] | + + + | Home Phone [...] Providers + +------+ + | Care Rn Hemodialysis Charge Name | Role | Phone | + +------+ + PCP | Unavailable | + +------+ + Encounter Details +--------+ + + + + | Date | Type | Department | Care Team | Description | +--------+ + + + + | 05/08/ | Office | | Note, Outpatient | [...] as of this encounter Progress Notes Interface, Cell Tuber Machine In - 11/05/2005 2:06 AM PDT [id number] GEOVANNI Barnes [id number] Clinic Date: 10/20/2005 Clinic: Bariatric Surgery Clinic Subjective: Ms. Meehan returns today for continued evaluation of her abdominal pain. She has had a gastric bypass followed by a panniculectomy approximately 1 year ago. She has had diffuse sharp and crampy abdominal pain which lasts up to 45 minutes. She says "it takes her breath away." She went to the emergency room at [place] last night and got some IV pain medicine which helped. She got an acute abdominal series which they told her was negative. She had some scattered episodes of emesis of very small volume yesterday. She denies hematemesis or hematochezia or melena or changes to her bowel habits. Objective: Vital Signs: Weight is 178, up from 168 pounds, pulse is 76, and blood pressure 120/70. General: She is alert, oriented, and in no acute distress. Abdomen: A focussed exam of her abdomen reveals well-healed surgical incisions. Her abdomen is soft, nondistended, and minimally tender to palpation only in the epigastrium. There is no guarding or rebound tenderness. There are no palpable masses. Assessment: Abdominal pain of unclear etiology. Plan: We will have Ms. Meehan return on for a CT scan of her abdomen and pelvis without any p.o. contrast. It is unclear to us what the source of this pain is. The scan may help to elucidate her problem; however, in the meantime she should continue taking small frequent meals, and we will see her on . Wali Valentine M.D. CONNOR / SHARIF [id number] / [id number] / [id number] / [id number] Electronically signed by Luther Valentine 11-04-2005 11:36:40 AM documented i n this encounter Plan of Treatment Not on filedocumented as of this encounter Visit Diagnoses Not on filedocumented in this encounter
--- OUTSIDE RECORDS SUMMARY | ~2019-12-13 | XMS | Encounter Summary ---
Demographics + + + | Address | [address] | | | [place] [address] | + + + | Home Phone [...] Team Providers + +------+ + | Care Rock Dust Sprayer Name | Role | Phone | + +------+ + | Sulaiman Carrera MD | PCP | | + +------+ + Encounter Details +--------+ + + + + | Date | Type | Department | Care Team | Description | +--------+ + + + + | 02/08/ | Telephone | Digestive Health | Chris Padgett, | | | 2008 | | [place] [address] | [address] [facility] | | | | | Bethanie Mailcode: CH4S | [address] | | | | | [facility] | [place], [place] | | | | | and Healing, | [address] | | | | | [place] [address], [address]th | [phone] | | | | | Floor [place], [place] | | | | | | [address] | | | | | | [phone] | | | +--------+ + + + [...]
--- OUTSIDE RECORDS SUMMARY | ~2019-12-13 | XMS | Encounter Summary ---
Demographics + + + | Address | [address] | | | [place] [address] | + + + | Home Phone [...] Team Providers + +------+ + | Care Tele Marketing Executive Name | Role | Phone | + [...] Refill | 02/11/ | | | | 2019 | | + +--------+ + Encounter Details +--------+--------+ + + + | Date | Type | Department | Care Team | Description | +--------+--------+ + + + | 01/18/ | Refill | [facility] | Alanis, | Medication Refill; | | 2018 | | MEDICINE [address] | MD [place] | Medication Refill | | | | [place], | [address] [place] | | | | | [place] [address] | [place] [address] | | | | | [phone] | [phone] | | | | | | | [...] | | 2019 | Visit | | [facility] [address] | | | | | | [address] [place] | | | | | | [place] [address] | | | | | | [phone] | | | | | | | | +--------+---------+ + + + | 12/20/ | Office | Otolaryngology | Ulysses Genao MD | | | 2019 | Visit | | [address] | | | | | | [address] [place] | | | | | | [place] [address] | | | | | | [phone] | | | | | | | | +--------+---------+ + + + | 02/15/ | Office | Internal Medicine | Alanis, | | | 2019 | Visit | | MD [place] | | | | | | [address] [place] | | | | | | [place] [address] | | | | | | [phone] | | | | | | | | +--------+---------+ + + + documented as of this encounter Visit Diagnoses Not on filedocumented in this encounter"
--- OUTSIDE RECORDS SUMMARY | ~2019-12-13 | XMS | Encounter Summary ---
Demographics + + + | Address | [address] | | | [place] [address] | + + + | Home Phone [...] Providers + +------+ + | Care Manager Operations And Procurement Name | Role | Phone | + [...] Lab findings, | | 2007 | | [place] [address] | [address] | teaching, guidance, | | | | Ave Mailcode: CH4S | [address] | and counseling | | | | [facility] | [place], [place] | | | | | and Healing, | [address] | | | | | [facility] | [phone] | | | | | [place], [place] | | | | | | [address] | | | | | | [phone] | | | +--------+ + + + [...]
--- OUTSIDE RECORDS SUMMARY | ~2019-12-13 | XMS | Encounter Summary ---
Demographics + + + | Address | [address] | | | [place] [address] | + + + | Home Phone [...] Team Providers + +------+ + | Care Washtub Worker Name | Role | Phone | + +------+ + PCP | Unavailable | + +------+ + Encounter Details +--------+ + + + + | Date | Type | Department | Care Team | Description | +--------+ + + + + | /20/ | Letter-[facility] | | Letters, Other | Letters | | 2003 | scribed | | | | +--------+ [...] as of this encounter Progress Notes Interface, Axle Turner In - 01/03/2006 3:02 AM [facility] [place] [address] [address], [place] [address] or November 01, 2002 Pedrito Gutierrez M.D. [facility] [address] [place] [id number] RE: BELINDA MEEHAN MR #: [id number] Dear Dr. Gutierrez: Belinda was seen in [facility] today. As you know, she is a 41-year-old female with multiple medical issues including obesity, obstructive sleep apnea, elevated PTH which seems to be idiopathic, and nonspecific neuromuscular disorder. Today, she complains of increased muscle pain due to starting physical therapy for her fibromyalgia. She also states she has had increased headaches in the bilateral parietal area which she believes may be related to her Phentermine. Additionally, she states that she had low blood sugar and elevated insulin levels. Unfortunately, we do not have those records today, so it is unclear what to make of that. She states that she will have episodes of dizziness, sweats, and lightheadedness. She states that she eats a candy bar and feels much better. She is currently on Phentermine 37.5 mg daily and continues to complain of a dry mouth. Her exam was unremarkable. After much discussion with the patient, she decided to continue the Phentermine and will consider discontinuing it if the headache is worse. She will be referred for bariatric surgery here at [facility]. We have several physicians who perform the surgery, Dr. Guevara, Dr. Padgett, and Dr. Cedeno. She will continue her exercise plan. As far as her headaches go, we have requested an MRI to rule out pseudotumor cerebri as a contributing factor but low blood sugar levels and high fasting insulin is unlikely to be pathologic. We have requested that records from your clinic be sent to us so that we can evaluate the lab reports. The patient will follow up with us in clinic in 3 months. The patient was seen, examined, and management plan was discussed with Dr. Meeks. Sincerely, Maurilio Estrada M.D. KRIS / SHARIF [id number] / [id number] / [id number] / Tdocumented in this encounter Plan of Treatment Not on filedocumented as of this encounter Visit Diagnoses Not on filedocumented in this encounter"
--- OUTSIDE RECORDS SUMMARY | ~2019-12-13 | XMS | Encounter Summary ---
Demographics + + + | Address | [address] | | | [place] [address] | + + + | Home Phone [...] Team Providers + +------+ + | Care Transmission Repairer Name | Role | Phone | [...] + + | 03/30/ | Telephone | [facility] | Alanis, | Appointment | | 2018 | | MEDICINE [address] | MD [place] | | | | | [place], | [address] [facility] | | | | | [place] [address] | [place] [address] | | | | | [phone] | [phone] | | | | | | | [...] 03/30/2019 2:15 PM PDTPatient wanting to cale w will be having shoulder surgery and will [...] | 2019 | Visit | | [facility] [address] | | | | | [address] [place] | | | | | | [place] [address] | | | | | | [phone] | | | | | | | | +--------+---------+ + + + | 12/20/ | Office | Otolaryngology | Ulysses Genao MD | | | 2019 | Visit | | [address] | | | | | | [address] [place] | | | | | | [place], [place] [address] | | | | | | [phone] | | | | | | | | +--------+---------+ + + + | 02/15/ | Office | Internal Medicine | Alanis, | | | 2019 | Visit | | MD [place] | | | | | | [address] [place] | | | | | | [place], [place] [address] | | | | | | [phone] | | | | | | | | +--------+---------+ + + + documented as of this encounter Visit Diagnoses Not on filedocumented in this encounter"
--- OUTSIDE RECORDS SUMMARY | ~2019-12-13 | XMS | Encounter Summary ---
Demographics + + + | Address | [address] | | | [place] [address] | + + + | Home Phone | | + + + | Preferred Language | Unknown | + + + | Marital Status | | + + + | Evangelical Affiliation | 1001 | + + + [...] Team Providers + +------+ + | Care Naturopathic Oncology Provider Name | Role | Phone | + [...] Description | +--------+--------+ + + + | 05/18/ | Refill | [facility] | Alanis, | Medication Refill | | 2016 | | MEDICINE [address] | MD [place] | | | | | [place], | [address] [facility] | | | | | [place] [address] | [place] [address] | | | | | [phone] | [phone] | | | | | | | [...] | [facility] [address] | | | | | | ST [place] | | | | | | [place] [address] | | | | | | [phone] | | | | | | | | +--------+---------+ + + + | 12/20/ | Office | Otolaryngology | Ulysses Genao MD | | | 2019 | Visit | | [address] | | | | | | [address] [place] | | | | | | [place] [address] | | | | | | [phone] | | | | | | | | +--------+---------+ + + + | 02/15/ | Office | Internal Medicine | Alanis, | | | 2019 | Visit | | MD [place] | | | | | | [address] [place] | | | | | | [place] [address] | | | | | | [phone] | | | | | | | | +--------+---------+ + + + documented as of this encounter Visit Diagnoses Not on filedocumented in this encounter"
--- OUTSIDE RECORDS SUMMARY | ~2019-12-13 | XMS | Encounter Summary ---
Demographics + + + | Address | [address] | | | [place] [address] | + + + | Home Phone | | + + + | Preferred Language | Unknown | + + + | Marital Status | | + + + | Restorationism Affiliation | 1001 | + + + | Race | Unknown | + + + | Ethnic Group | Unknown | + + + Author + + + | Author | [facility] | | | and [place] | + + + | Organization | [facility] | | | [...] Team Providers + +------+ + | Care Subcontracts Manager Name | Role | Phone | + +------+ + | Petron[place] Thapa | PCP | | | MD | | | + +------+ + Reason for Visit + +--------+ + | Reason | Onset | Comments | | | Date | | + +--------+ + | Medication Refill | 01/17/ | | | | 2018 | | + +--------+ + Encounter Details +--------+--------+ + + + | Date | Type | Department | Care Team | Description | +--------+--------+ + + + | 01/17/ | Refill | [facility] | Alanis, | Medication Refill | | 2018 | | MEDICINE [address] | MD [place] | | | | | [place], | [address] [facility] [facility] | | | | | [place] [address] | [place] [address] | | | | | [phone] | [phone] | | | | | | | [...] this encounter Miscellaneous Notes Telephone Encounter - Gina Moreira RN - 01/17/2019 2:02 PM PDTReceived faxed refill re quest from pharmacy for patient's levothyroxine 75 mcg. Refill sent to pharmacy. documented in this encounter Plan of Treatment [...] | | | | | [place] [address] | | | | | | [phone] | | | | | | | | +--------+---------+ + + + | 12/20/ | Office | Otolaryngology | Ulysses Genao MD | | | 2019 | Visit | | [address] | | | | | | [address] [place] | | | | | | [place] [address] | | | | | | [phone] | | | | | | | | +--------+---------+ + + + | 02/15/ | Office | Internal Medicine | Alanis, | | | 2019 | Visit | | MD [place] | | | | | | [address] [place] | | | | | | [place] [address] | | | | | | [phone] | | | | | | | | +--------+---------+ + + + documented as of this encounter Visit Diagnoses Not on filedocumented in this encounter"
--- OUTSIDE RECORDS SUMMARY | ~2019-12-13 | XMS | Encounter Summary ---
Demographics + + + | Address | [address] | | | [place] [address] | + + + | Home Phone [...] Team Providers + +------+ + | Care Brush Painter Name | Role | Phone | + +------+ + | Pedrito Gutierrez MD | PCP | | + +------+ + Encounter Details +--------+ + + + + | Date | Type | Department | Care Team | Description | +--------+ + + + + | 01/29/ | Office | Endocrinology, | Beto Meeks MD | | | 2005 | Visit-ECX | Diabetes and | [address] | | | | | Clinical Nutrition | [place], [place] | | | | | [address] | [address] | | | | | Loop Mailcode: OPC5 | [phone] | | | | | Outpatient Clinic | | | | | | [facility], | | | | | | [place] [address] | | | | | | [phone] | | | +--------+ + + + [...]
--- OUTSIDE RECORDS SUMMARY | ~2019-12-13 | XMS | Encounter Summary ---
Demographics + + + | Address | [address] | | | [place] [address] | + + + | Home Phone [...] Providers + +------+ + | Care Concrete Spreader Name | Role | Phone | + [...] [address] | | | | | | [place], [place] | | | | | | [address] | | | | | | [phone] | | | +--------+ + + + [...]
--- OUTSIDE RECORDS SUMMARY | ~2019-12-13 | XMS | Encounter Summary ---
Demographics + + + | Address | [address] | | | [place] [address] | + + + | Home Phone [...] Team Providers + +------+ + | Care Car Hop Name | Role | Phone | + +------+ + | Petrona Thapa | PCP | | | MD | | | + +------+ + Reason for Visit + + + | Reason | Comments | + + + | Follow-up | VNG and MRI | + + + Evaluate & Treat (Routine) +--------+--------+ + + + + | Status | Reason | Specialty | Diagnoses / | Referred By | Referred To | | | | | Procedures | Contact | Contact | +--------+--------+ + + + + | Closed | | Otolaryngolog | Diagnoses | | Dsouza, Ulysses | | | | y | Fluid in | Emmy-Tajt | [address], [address] | | | | | ears/self/Fa | i, | [address] | | | | | milycare | Sulaiman-Gily | [address] | | | | | Medicare/Ion | , MD [address] | [place], | | | | | escu | [address] | [place] [address] | | | | | Procedures | [place], | Phone: | | | | | OFFICE VISIT | [place] | [phone] | | | | | REGULAR | [address] | Fax: | | | | | | Phone: | [phone] | | | | | | [phone] | | | | | | | Fax: | | | | | | | [phone] | | +--------+--------+ + + + + Encounter Details +--------+---------+ + + + | Date | Type | Department | Care Team | Description | +--------+---------+ + + + | 12/07/ | Office | [facility] | Ulysses Dsouza MD | BPPV (benign | | 2015 | Visit | OTOLARYNGOLOGY [address] | [address] | paroxysmal | | | | [address] | [address] [place] | positional vertigo), | | | | [place], [place] | [place] [address] | left (Primary Dx); | | | | [address] | [phone] | Vertigo of central | | | | [phone] | | origin, left | +--------+---------+ + + + Social History [...] + + | Pulse | 62 | 12/07/2014 11:29 AM | | | | | PDT | | + + + + + | Temperature | - | - | | + + + + + | Respiratory Rate | - | - | | + + + + + | Oxygen Saturation | 95% | 12/07/2014 11:29 AM | | | | | PDT | | + + + + + | Inhaled Oxygen | - | - | | | Concentration | | | | + + + + + | Weight | 88.5 kg (195 lb) | 12/07/2014 11:29 AM | | | | | PDT | | + + + + + | Height | 172.7 cm (5' 8") | 12/07/2014 11:29 AM | | | | | PDT | | + + + + + | Body Mass Index | 29.65 | 12/07/2014 11:29 AM | | | | | PDT | | + + + + + documented in this encounter Progress Notes Ulysses Dsouza MD - 12/07/2014 1:48 PM PDT [facility] OTOLARYNGOLOGY [address] [place] [address] OFFICE NOTE ULYSSES DSOUZA MD Patient: BELINDA MEEHAN Admitting: MR #: [id number] LOC: PT TYPE: Adm Date: 12/07/2014 : 1960 DATE OF VISIT: 12/07/2014. The patient is having a tremendous problem with her balance. At times she gets a spinning type sensation, other times she just tends to fall down and recently she has developed a w rist drop on the right arm. She has seen an orthopedist who put her in a splint. [facility] has completed an MRI scan and also a VNG today to try to evaluate what all may be celia g on with her balance dysfunction. The VNG indicates that the patient did have a positive Hallpike towards the left hand side and this certainly has the question of some benign paro xysmal positional vertigo. The patient's saccade, smooth pursuit and optokinetics were al l abnormal. Her caloric test showed that she had a right unilateral weakness of 32.92 perc ent and had a left directional preponderance. The patient appears to have the benign posit ional vertigo, but also has a central origin problem to her balance. The MRI scan was repo rted as not noting any tumor or mass or increased pressure in her head. No demyelination problems are evident; the patient did not have an acoustic neuroma. The report of the scan and the findings of the VNG were reported to the patient. Extensive discussion was rasheed d on that the patient hopefully would be helped with the use of an Tayler maneuver towards the left hand side to see if this might settle down some of her spinning type of sensation. The patient needs to see a neurologist to evaluate the overall neurological function and try to narrow down why she is falling, why she has the wrist drop and the generalized weakn ess. Throughout the time in the office she at times was very groggy and almost fell asleep . She denied using much muscle relaxants today, but certainly there is a question of a med ication involvement. The patient would repeatedly ask the same question and not comprehend the answer. The caregiver with her will try to reinforce the findings. The patient jono es to do the Tayler maneuver, but also to see a neurologist. She indicated that the orthope dic surgeon and also a question of Dr. Booth were working on her to get in to see a neuro logist and this will be left to their discretion. ULYSSES DSOUZA MD Dictated by ULYSSES DSOUZA MD 12/07/2014 13:48:42 Transcribed on 12/08/2014 04:46:49 by [facility] job# [id number] Confirmation #: [id number] signed by Ulysses Dsouza MD at 12/08/2014 8:52 AM Ulysses Arnold MD - 12/07/2014 1:43 PM PDTSee dictation #[id number] signed by Dmitriy Dsouza MD at 12/07/2014 1:49 PM PDTdocumented in this encounter Plan of Treatment +--------+---------+ + + + | Date | Type | Specialty | Care Team | Description | +--------+---------+ + + + | 12/20/ | Office | Audiology | Elisabet Munson MS | | | 2019 | Visit | | [facility] [address] | | | | | [address] [place] | | | | | | [place] [address] | | | | | | [phone] | | | | | | | | +--------+---------+ + + + | 12/20/ | Office | Otolaryngology | Ulysses Dsouza MD | | | 2019 | Visit | | [address] | | | | | | [address] [place] | | | | | | [place] [address] | | | | | | [phone] | | | | | | | | +--------+---------+ + + + | 02/15/ | Office | Internal Medicine | Alanis, | | | 2019 | Visit | | MD [place] | | | | | | [address] [place] | | | | | | [place] [address] | | | | | | [phone] | | | | | | | | +--------+---------+ + + + documented as of this encounter Visit Diagnoses + + | Diagnosis | + + | BPPV (benign paroxysmal positional vertigo), left - Primary | + + | Vertigo of central origin, left | + + documented in this encounter
--- OUTSIDE RECORDS SUMMARY | ~2019-12-13 | XMS | Encounter Summary ---
Demographics + + + | Address | [address] | | | [place] [address] | + + + | Home Phone [...] Team Providers + +------+ + | Care Cardiac Cath Lab Technologist Name | Role | Phone | [...] | | | | [address] Physician's | [place], [place] | | | | | [address] | [address] | | | | | [place], [place] | [phone] | | | | | [address] | | | | | | [phone] | | | +--------+ + + + [...]
--- OUTSIDE RECORDS SUMMARY | ~2019-12-13 | XMS | Encounter Summary ---
Demographics + + + | Address | [address] | | | [place] [address] | + + + | Home Phone [...] Providers + +------+ + | Care Special Delivery Messenger Name | Role | Phone | + [...] | | CONSULT TO | Rd | [address] | | | | | NEUROLOGY | [place], [place] | for Health | | | | | | [address] | and Healing, | | | | | | Phone: | [address], | | | | | | [phone] | [facility] Floor | | | | | | | [place], [place] | | | | | | | [address] | | | | | | | Phone: | | | | | | | [phone] | | | | | | | Fax: | | | | | | | [phone] | +--------+--------+ + + + + Reason [...] | | | [facility] | [place], [place] | Weak; | | | | [address] | [address] | Migraine Headache | | | | [address] | [phone] | | | | | [facility] | | | | | | Physician's | | | | | | Pavilion [place], | | | | | | [place] [address] | | | | | | [phone] | | | +--------+---------+ + + + [...] (ciprofloxacin) Tramadol Morphine IM ( only in [facility]) made gut pain worse 08/27/06: [...] oral route once daily, Disp: , Rfl: geazfoieaj-bsmpirzjkmgzn-razpwqwh (FIORICET) 50-325-40 mg Oral Tablet, take 2 [...] LE edema Results for BELINDA MEEHAN Molly (ID#[id number]) as of 03/01/2008 9:22:28 PM Ref. Range [...] K/cu mm 220 Results for BELINDA MEEHAN (ID#[id number]) as of 03/01/2008 9:22:28 PM Ref. Range [...] continue to discuss with her options at [facility] with, hopefully, coordin ation of services. RTC [...] | + + + + + | [facility] | [facility] | [place] [address] | | | PATHOLOGY | [address] | | | + + + + + | [place] DEPARTMENT OF | [address] | [place] [address] | | | PATHOLOGY | [address] [...] Performed At | + + + | [id number] Estimated GFR > 60 mL/min/1.73 sq m if non- | [facility] | | Iraqi [id number] Estimated GFR > 60 mL/min/1.73 sq m if | DEPARTMENT OF | | Iraqi GFR is estimated using the MDRD equation [...] | + + + + + | [facility] | [address] [facility] | [place] [address] | | | PATHOLOGY | [address] | | | + + + + + | [facility] | [address] [facility] | [place] [address] | | | PATHOLOGY | [address] [...] change effective | | | 04/05/07 [facility] ([facility]) | | | [facility] [address] [address] [facility] | | | [place] [address] | | + + + + + + + + | Performing | Address | City/State/Zipcode | Phone Number | | Organization | | | | + + + + + | [facility] | [address] | [place] [address] | | | LABORATORY | | | [...] change effective | | | 04/05/07 [facility] ([facility] [address] [facility]) | | | [facility] [place] [address] [address] [facility] | | | [place] [address] | | + + + + + + + + | Performing | Address | City/State/Zipcode | Phone Number | | Organization | | | | + + + + + | [facility] | [address] | [place] [address] | | | LABORATORY | | | [...]
--- OUTSIDE RECORDS SUMMARY | ~2019-12-13 | XMS | Encounter Summary ---
Demographics + + + | Address | [address] | | | [place] [address] | + + + | Home Phone [...] Team Providers + +------+ + | Care Construction Safety Manager Name | Role | Phone | [...] | | | Metabolism | bypass | [address] | [address] | | | | | Hypovitamino | [address] | [address] | | | | | sis D [address]12 | [address] | [place], [place] | | | | | nutritional | [place], [place] | [address] | | | | | deficiency | [address] | Phone: | | | | | Other | Phone: | [phone] | | | | | protein-jose manuel | [phone] | Fax: | | | | | nick | Fax: | [phone] | | | | | malnutrition | [phone] | | | | | | Weight | | | | | | | gain | | | | | | | Procedures | | | | | | | CONSULT TO | | | | | | | ENDO | | | | | | | [address] | | | | | | | [address] | | | +--------+--------+ + + + + Encounter Details +--------+---------+ + + + | Date | Type | Department | Care Team | Description | +--------+---------+ + + + | 12/21/ | Office | Kraig Turner | Beto Meeks MD | Metabolic syndrome X | | 2012 | Visit | [facility] | [address] | 250.[address] (Primary | | | | [facility] | [place], [place] | Dx); Hypothyroidism; | | | | [address] | [address] | Essential | | | | [address] | [phone] | hypertension 401.9; | | | | [facility] | | Secondary | | | | Physician's | | hyperparathyroidism, | | | | [facility] [place], | | non-renal (HCC) | | | | [place] [address] | | | | | | [phone] | | | +--------+---------+ + + + [...] + + + | Blood Pressure | 106/64 | 12/21/2012 1:08 PM | | | | | PDT | | + + + + + | Pulse | 66 | 12/21/2012 1:08 PM | | | | | PDT [...] + + + + | Weight | 100.7 kg (221 lb | 12/21/2012 1:08 PM | | | | 14.4 oz) | PDT | | + + + + + | Height | 172.7 cm (5' 8") | 12/21/2012 1:08 PM | | | | | PDT | | + + + + + | Body Mass Index | 33.74 | 12/21/2012 1:08 PM | | | | | PDT | | + + + + + documented in this encounter Progress Notes Beto Meeks MD - 12/23/2012 2:42 PM PDTFormatting of this note might be different from lesli gomez. ENDOCRINOLOGY CLINIC - Initial Consultation STAFF - Constantino I have participated in carrera aspects of the review of records, patient interview and examinat ion, counseling, and formulation of the evaluation and treatment plan. I agree with documen janice by Dr. Allred. Please see attached notes for full details of the visit. She has sec ondary hyperparathyroidism, most likely as a consequence of insufficient calcium intake comb ined with decreased calcium absorption resulting from her gastric bypass surgery. She can i ncrease her calcium intake by 25-50%. Patient Active Problem List Diagnosis Metabolic syndrome [...] Left Arm Anal or Rectal Pain Falling Current Outpatient Prescriptions Medication Sig aspirin chewable (BABY ASPIRIN) 81 mg 2 daily buPROPion XL (WELLBUTRIN XL) 300 mg SR take 1 tablet (300 mg) by oral route once daily CALCIUM 600 WITH VITAMIN D OR 1000 mg tab 4 x daily cholecalciferol, Vitamin D3, 1,000 units Take 4,000 Units by mouth once daily. Cyanocobalamin 1,000 mcg/mL 1 inj IM q month Docusate Sodium 100 mg Oral Tablet take 1 tablet (100 mg) by oral route once daily at b edtime prn ferrous gluconate 325 mg (36 mg iron) Oral tablet Take 300 mg by mouth once daily. furosemide (LASIX) 40 mg Oral Tablet take 1 tablet (80 mg) by oral route twice daily gabapentin 300 mg Oral Tablet Take 300 mg by mouth three times daily. INDERAL LA 120 mg Oral Capsule,SR 24 hr Take 80 mg by mouth once daily at bedtime. levothyroxine 50 mcg Oral Tablet Once daily. methocarbamol 750 mg Oral Tablet Take 1-2 Tabs by mouth three times daily. Multivitamin Oral Tablet 1 tab by mouth twice daily phentermine 37.5 mg Oral tablet Take 0.5 Tabs by mouth once daily mid-morning POTASSIUM CHLORIDE SR 20 MEQ TAB, PARTICLES/CRYSTALS take 1 tablet (20meq) by oral rout e once daily with food promethazine 25 mg Oral Tablet 1 tab by mouth as needed risedronate (ACTONEL) 35 mg Oral Tablet Take 1 Tab by mouth every seven days. senna-docusate (SENNA WITH DOCUSATE SODIUM) 8.6-50 mg Oral Tablet Take 2 Tabs by mouth two times daily. sucralfate (CARAFATE) 1 gram Oral Tablet Take 1 Tab by mouth before meals. VITAMIN C 500 MG CHEWABLE TAB four times a day Component Latest Ref Rng 12/21/2012 12/21/2012 12/21/2012 12/21/2012 GLUCOSE, PL 60-99 mg/dL 87 BUN, PLASMA 6-20 mg/dL [address] 0.6-1.1 mg/dL 0.60 EGFR >60 mL/min >60 SODIUM, PL 136-145 mmol/L 143 POTASSIUM, 3.4-5.0 mmol/L 3.9 CHLORIDE, PL 97-108 mmol/L 104 TOTAL CO2, PL 21-32 mmol/L 31 CALCIUM, PL 8.6-10.2 mg/dL 9.2 BILIRUBIN TOTAL 0.3-1.2 mg/dL 0.4 TOTAL PROTEIN, PLASMA (LAB) 6.4-8.2 g/dL 7.4 ALBUMIN, PLASMA 3.5-4.7 g/dL 4.0 ALK PHOS 42-98 U/L 163 (H) AST(SGOT) 15-41 U/L 35 ALT (SGPT) 12-60 U/L 41 ANION GAP 8 WBC 4.4-11.0 K/cu mm 7.1 RBC 4.00-5.20 M/cu mm 4.47 HEMOGLOBIN 12.0-16.0 g/dL 14.7 HEMATOCRIT 36.0-46.0 % 44.6 MCV 80.0-96.0 fL 99.8 (H) MCHC 33.4-35.5 g/dL 32.9 (L) RDW 11.5-15.0 % 12.4 PLATELET [id number] K/cu mm 205 IRON 30-160 ug/dL 114 IRON BIND CAP SERUM 240-450 ug/dL 430 % SATURATION TRANSFERRIN, 20-50 % 27 TSH 0.34 - 5.60 mcIU/mL 0.96 VITAMIN D 25 HYDROXY 30-80 ng/mL 30.3 PTH, SERUM 15.0-85.0 pg/ml 222.9 VITAMIN B12, SERUM 190-910 pg/ml >2000 (H) HEMOGLOBIN A1C <=5.6 % 5.7 (H) Issac Meeks M.D. Ly Gomez Md, I - 12/21 1:15 PM PDT New Patient Visit on 12/21/2012 with Ly Allred Chief Complaint -new patient visit BELINDA MEEHAN is a 52 y.o. female here for a new patient visit in Endocrine Clinic. She is s/p gastric bypass (letitia-en-Y) and here for pharmacologic weight loss options. Would like the sleeve but was told by [facility] that it is not an option, recommended pharmacologic weight mgmt. Gets primary care in [place], [place] ([facility]). Weight leveled out at 220's. Pre-surgery was 333, went down to 150. Has tried phentermine i n the past, does not remember result but chart review shows she did have some weight loss wi th this medication. Eats small amounts, not a lot, son cooks for her often with plenty of fr uits and veggies. Starting with pool therapy recently, had set backs with arm fracture and s pine surgery. Urinate a lot at night, wakes up with headaches and not feeling rested, not vuong re if she snores. Takes 0.125mcg levo daily, with recent increase in past 3months. Recent th yroid US normal. On Risendronate, ca 3,000, vit D 3,000, last DEXA osteopenic 2008. Had recent episode where she stopped taking her inderol and had what sounds like rebound ta chycardia requiring IV medication, although records are not available and she does not remem erica details. Denies new dry/clammy skin, palpitations, weight changes, constipation, malaise, night swea ts. Does have ongoing diarrhea since gastric bypass. Patient Active Problem List Diagnosis Metabolic syndrome [...] Left Arm Anal or Rectal Pain Falling Past Surgical History Procedure Laterality Date Salpingo-oophorectomy Colonoscopy 03/2006 Tonsillectomy Pr d&c after delivery Pr inject trigger point, 1 or 2 Knee replacement 02/2007 Left knee Knee replacement 08/2007 right knee Lumbar fusion 05/2008 [id number] with bone spur removals Appendectomy Cholecystectomy section Hysterectomy Gastric bypass Mayra Padgett wt 278 01/18 Paniculectomy Family History Problem Relation Cancer Mother Heart Disease Father Additional Family History Father Migraine Additional Family History Mother Migraine History Social History Marital Status: Single Spouse Name: N/A Number of Children: N/A Years of Education: N/A Occupational History Not on file. Social History Main Topics Smoking status: Current Every Day Smoker -- 1.00 packs/day for 30 years Types: Cigarettes Smokeless tobacco: Not on file Comment: one pack in five days Alcohol Use: No Drug Use: No Sexually Active: No Other Topics Concern Not on file Social History Narrative No narrative on file Review of Systems Relevant Positive and negative ROS are noted in history above. Current Outpatient Prescriptions Medication Sig aspirin chewable (BABY ASPIRIN) 81 mg Oral Tablet, Chewable 2 daily buPROPion XL (WELLBUTRIN XL) 300 mg Oral Tablet Sustained Release 24 hr take 1 tablet ( 300 mg) by oral route once daily CALCIUM 600 WITH VITAMIN D OR 1000 mg tab 4 x daily cholecalciferol, Vitamin D3, 1,000 unit Oral tablet Take 4,000 Units by mouth once chad y. Cyanocobalamin 1,000 mcg/mL Injection Syringe 1 inj q month Docusate Sodium 100 mg Oral Tablet take 1 tablet (100 mg) by oral route once daily at b edtime as needed ferrous gluconate 325 mg (36 mg iron) Oral tablet Take 300 mg by mouth once daily. furosemide (LASIX) 40 mg Oral Tablet take 1 tablet (80 mg) by oral route twice daily gabapentin 300 mg Oral Tablet Take 300 mg by mouth three times daily. INDERAL LA 120 mg Oral Capsule,Sustained Action 24 hr Take 80 mg by mouth once daily at bedtime. levothyroxine 50 mcg Oral Tablet Once daily. methocarbamol 750 mg Oral Tablet Take 1-2 Tabs by mouth three times daily. Multivitamin Oral Tablet 1 tab by mouth twice daily POTASSIUM CHLORIDE SR 20 MEQ TAB, PARTICLES/CRYSTALS take 1 tablet (20meq) by oral rout e once daily with food promethazine 25 mg Oral Tablet 1 tab by mouth as needed risedronate (ACTONEL) 35 mg Oral Tablet Take 1 Tab by mouth every seven days. senna-docusate (SENNA WITH DOCUSATE SODIUM) 8.6-50 mg Oral Tablet Take 2 Tabs by mouth two times daily. sucralfate (CARAFATE) 1 gram Oral Tablet Take 1 Tab by mouth before meals. VITAMIN C 500 MG CHEWABLE TAB four times a day No current facility-administered medications for this visit. Allergies Allergen Reactions Levaquin (Levofloxacin) Hives and Itching Amitriptyline Grand mal seizures Cipro (Ciprofloxacin) Clarithromycin Hives Mainly in the legs Clindamycin Codeine Fabskah-Uomvaevhmt-Ljk-Caff Balance problems Fioricet W/Codeine (Jadjfalooh-Psmuroedsk-Zmt-Cod) Keflex (Cephalexin) Morphine IM ( only in [facility]) made gut pain worse 08/27/06: Trial of oral MSIR caused leg swelling Penicillins Sulfa (Sulfonamide Antibiotics) Tramadol Filed Vitals: 12/21/2012 1:08 PM Height: 1.727 m (5' 8") Weight: 100.653 kg (221 lb 14.4 oz) BP: 106/64 Pulse: 66 PainSc: 10 - Worst Possible Pain BMI: 33.75 kg/(m^2)estimated body mass index is 33.75 kg/(m^2) as calculated from a height of 5' 8" as of this encounter and a weight of 3550.4 as of this encounter. Gen: Comfortable, NAD HEENT: PERRL, sclera anicteric, moist mucous membranes, op clear, edentulous Neck: No LAD. Thyroid nontender, nonenlarged, mobile, w/o palpable nodules. CV: RRR, S1S2, no murmurs Pulm: Breathing comfortably, ctab, no wheezes or crackles Abd: Soft, NT, ND, +BS Ext: Trace peripheral edema. WWP. Reflexes 2+ b/l UE&LE Labs Reviewed Today 2001 A1C 6 2008 TSH 1.3 2009 Vit D 47 Dexa 2009 -2 hip, -0.9 spine, -0.3 radius Assessment and Plan Obesity: s/p gastric bypass 2003 with great results 333lb -> 160, now plateau at 240lb. Has seen bariatric surgery who think pharmacologic weight loss is better option that additional surgery like gastric sleeve. Suspect multiple etiologies, including decreased activity with multiple recent sugeries, uncontrolled pain, poor sleep, menopause and possible sleep apnea . Phentermine has worked for her in the past, will try this again. Recent tachycardia episod e concerning, given phentermine's SE of exacerbating underlying arrhythmias, but episode see ms like it was from beta colby withdrawal. Alerted her to watch her BP and HR closely for the first few weeks while starting medication. -sleep study -A1C, TSH, Chem7, CBC, Vit D -phentermine 37.5 - half tab daily Osteopenia: has been on risedronate for >5years. Dexa 2008 -2 hip, -0.9 spine, -0.3 radius. -DEXA, consider stopping risedronate at [facility] Pre-DM: last check 2001, check A1C, consider MFN for help with weight loss as well Hypothyroidism: followed by PCP who recently lowered her dose 3mo ago to 150mcg daily The history, findings, diagnoses and treatment plan that I have documented were reviewed wi a staff physician at the time of this visit. The staff physician agrees that my assessmen t, plan and services provided are appropriate. Ly Allred MD R-2, Internal Medicine Pager: [phone] documented in this enco unter Plan of Treatment Not on filedocumented as of this encounter Results HEMOGLOBIN A1C, BLOOD (12/21/2012 2:51 PM PDT) [...] | | If you are | | [place] | | | | screening for diabetes: [...] + | [facility] | [address] | [place] [address] | | | [place] | | | [...] + + + + + | [facility] | [address] | [place] [address] | | | SERVICES, SPECIAL | [place] [...] | + + + + + | [facility] | [address] | [place] [address] | | | SERVICES, CORE | [address] | | | + [...] | | | LABORATORY | | | TEE, | | | SPECIAL IMM + | | | COAG | + + + + + + + + | Performing | Address | City/State/Zipcode | Phone Number | | Organization | | | | + + + + + | [facility] | [address] | [place] [address] | | | SERVICES, SPECIAL | [place] [...] by | | | | | | [employer],[address] | | | | | | [address], [facility] [place] | | | | | | [address] | | | | | | [phone].Location. | | | | | | [facility], [employer], | | | | | | , [...] [facility] | [address] | [place], [place] | | | [facility] | | [address] | | + + + + + [...] | + + + + + | [facility] | [address] | [place] [address] | | | SERVICES, SPECIAL | [address] [...] + | [facility] | [address] | [place] [address] | | | [place] | | | [...] Unspecified essential hypertension | + + | Secondary hyperparathyroidism, non-renal (HCC) Secondary hyperparathyroidism, | | non-renal | + + documented in this encounter
--- OUTSIDE RECORDS SUMMARY | ~2019-12-13 | XMS | Clinical Summary ---
Demographics + + + | Address | [address] | | | [place] [address] | + + + | Home Phone [...] Team Providers + +------+ + | Care Track Broom Operator Name | Role | Phone | + +------+ + | Sulaiman Carrera MD | PCP | | + +------+ + Source Comments [facility] is fully live on both [facility] and [facility] Allergies + + + [...] + + + + + + | Mmpknbj-Rfnmcrfoid-P | | | 08/29/19 | Balance problems [...] in | | | | | | [facility]) | | | | | | made [...] + + | Tramadol | | | 0820 | | | | | | 06 [...] | | + + + +---------+------+------+-------+ | POTASSIUM CHLORIDE | take 3 tablet | | 0 | | | Activ | | SR 20 MEQ TAB, | (20meq) by oral | | | | | e | | PARTICLES/CRYSTALS | route twice daily | | | | | | | | with food | | | | | | + + + +---------+------+------+-------+ | CALCIUM 600 WITH | 1000 mg tab 4 x | | 0 | | | Activ | | VITAMIN D OR | daily | | | | | e | + + + +---------+------+------+-------+ | Cyanocobalamin | 1 inj q month | | 0 | | | Activ | | 1,000 mcg/mL | | | | | | e | | Injection Syringe | | | | | | | + + + +---------+------+------+-------+ | Multivitamin Oral | 1 tab by mouth twice | | 0 | | | Activ | | Tablet | daily | | | | | e | + + + +---------+------+------+-------+ | methocarbamol 750 | Take 1 tablet by | | 0 | | | Activ | | mg Oral Tablet | mouth three times | | | | | e | | | daily. | | | | | | + + + +---------+------+------+-------+ | sucralfate | Take 1 Tab by mouth | 120 | 1 | 05/2 | | Activ | | (CARAFATE) 1 gram | before meals. | | | 03/04 | | e | | Oral Tablet | | | | 09 | | | + + + +---------+------+------+-------+ | gabapentin 300 mg | Take 900 mg by mouth | | 0 | | | Activ | | Oral Tablet | three times daily. | | | | | e | + + + +---------+------+------+-------+ | cholecalciferol, | Take 4,000 Units by | | 0 | | | Activ | | Vitamin D3, 1,000 | mouth once daily. | | | | | e | | unit Oral tablet | | | | | | | + + + +---------+------+------+-------+ | betaxolol | 1-2 drops two times | | 0 | | | Activ | | (BETOPTIC S) 0.25 % | daily. | | | | | e | | Ophthalmic Drops, | | | | | | | | Suspension | | | | | | | + + + +---------+------+------+-------+ | travoprost | 1 drop once daily in | | 0 | | | Activ | | (TRAVATAN Z) 0.004 % | the evening. | | | | | e | | Ophthalmic Drops | | | | | | | + + + +---------+------+------+-------+ | omeprazole 20 mg | Take 20 mg by mouth | | 0 | | | Activ | | Oral capsule,delayed | two times daily. | | | | | e | | release(DR/EC) | | | | | | | + + + +---------+------+------+-------+ | furosemide 80 mg | Take 80 mg by mouth | | 0 | | | Activ | | Oral tablet | two times daily. | | | | | e | + + + +---------+------+------+-------+ | torsemide 5 mg | Take 20 mg by mouth | | 0 | | | Activ | | Oral tablet | once daily. | | | | | e | + + + +---------+------+------+-------+ | metoprolol | Take 50 mg by mouth | | 0 | | | Activ | | tartrate 50 mg Oral | three times daily. | | | | | e | | tablet | | | | | | | + + + +---------+------+------+-------+ | DULoxetine 60 mg | Take 60 mg by mouth | | 0 | | | Activ | | oral capsule,delayed | once daily. | | | | | e | | release(/EC) | | | | | | | + + + +---------+------+------+-------+ | topiramate 50 mg | Take 50 mg by mouth | | 0 | | | Activ | | oral tablet | two times daily. | | | | | e | + + + +---------+------+------+-------+ | ondansetron ODT 4 | Take 4 mg by mouth | | 0 | | | Activ | | mg oral | every twelve hours | | | | | e | | tablet,disintegratin | as needed. | | | | | | | g | | | | | | | + + + +---------+------+------+-------+ | buprenorphine | Apply 15 mcg to skin | | 0 | | | Activ | | (BUTRANS) [...] | + + + +---------+------+------+-------+ | levothyroxine 75 | Take 75 mcg by mouth | | 0 | | | Activ | | mcg oral tablet | once daily. | | | | | e | + + + +---------+------+------+-------+ | meclizine 25 mg | Take 25 mg by mouth | | 0 | | | Activ | | oral tablet | three times daily as | | | | | e | | | needed for | | | | | | | | nausea/vomiting. | | | | | | + + + +---------+------+------+-------+ | rOPINIRole 1 mg | Take 2 mg by mouth | | 0 | | | Activ | | oral tablet | once daily in the | | | | | e | | | evening. | | | | | | + + + +---------+------+------+-------+ | nitroglycerin 0.4 | Place 0.4 mg under | | 0 | | | Activ | | mg [...] | | | + + + +---------+------+------+-------+ Active Problems + + + | Problem | Noted Date | + + + | Post laminectomy syndrome | 06/23/2013 | + + + | Chronic migraine without aura, with status migrainosus | 06/23/2013 | + + + + + | Overview: since childhood, strong family history, metabolic | | imbalances, sleep apnea, neck pain, medication [id number] | + + + + + | [...] + +---+ + + | Overview: <PROVIDER>DAVIDE BOX | | | | ICD10 | + [...] + | Chronic abdominal pain | | 11/11/ | | | | 7 | + [...] recent travel history available. | + + Last Filed Vital Signs + + + + + | Vital Sign | Reading | Time Taken | Comments | + + + + + | Blood Pressure | 122/69 | 02/05/2017 1:12 PM | | | | | PDT | | + + + + + | Pulse | 63 | 02/05/2017 1:12 PM | | | | | PDT | | + + + + + | Temperature | 36.7 C (98.1 F) | 08/09/2013 4:27 PM | | | | | PST | | + + + + + | Respiratory Rate | 15 | 02/05/2017 1:12 PM | | | | | PDT | | + + + + + | Oxygen Saturation | 97% | 02/05/2017 1:12 PM | | | | | PDT | | + + + + + | Inhaled Oxygen | - | - | | | Concentration | | | | + + + + + | Weight | 93.9 kg (207 lb) | 02/05/2017 1:12 PM | | | | | PDT | | + + + + + | Height | 172.7 cm (5' 8") | 02/05/2017 1:12 PM | | | | | PDT | | + + + + + | Body Mass Index | 31.47 | 02/05/2017 1:12 PM | | | | | PDT | | + + + + + Plan of Treatment + + + + + | Health Maintenance | Due Date | Last Done | Comments | + + + + + | Pneumococcal | | | | | vaccination (1 of 1 | 5 | | | | - PPSV23) | | | | + + + + + | Influenza (Flu) | | 02/04/2017 | | | vaccination (#1) | 9 | | | + + + + + Results Not on filefrom Last 3 Months Insurance + +--------+ +--------+ + +--------+ | Payer | Benefi | Subscriber | Effect | Phone | Address | Type | | | t Plan | ID | gerda | | | | | | / | | Dates | | | | | | Group | | | | | | + +--------+ +--------+ + +--------+ | MEDICARE | MEDICA | xxxxxxxxxx | 07/16/19 | [phone] | [address] | Medica | | | RE A & | | 03-Pre | 1 | [phone] | [address] | | | B | | sent | | [place], [place] | | | | | | | | [address] | | + +--------+ +--------+ + +--------+ | DIRECTOR MBA MEDICAID | DIRECTOR MBA | xxxxxxxx | | | | Medica | | | [place]AST[place] | | 012-Pr | | | id | | | [place] | | esent | | | | + +--------+ +--------+ + +--------+ + +--------+ +--------+ + + | Guarantor Name | Accoun | Relation to | Date | Phone | Billing Address | | | t Type | Patient | of | | | | | | | | | | + +--------+ +--------+ + + | Belinda Meehan | Person | Self [birth year] | [address] | | | al/Fam | | 1960 | [phone] | [place] [address] | | | bijan | | | 3 (Home) | | + +--------+ +--------+ + + | Belinda Meehan | Medica | Self | [birth year] | [address] | | | re | | [phone] | [phone] | [place] [address] | | | Recurr | | | 3 (Home) | | | | ing | | | | | + +--------+ +--------+ + + Advance Directives + + + + + | Type | Date Recorded | Patient | Explanation | | | | 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
--- OUTSIDE RECORDS SUMMARY | ~2019-12-13 | XMS | Encounter Summary ---
Demographics + + + | Address | [address] | | | [place] [address] | + + + | Home Phone [...] Team Providers + +------+ + | Care Pot Feeder Name | Role | Phone | [...] | | | | behavior of | [facility] | | | | | bone and | & Fractur | [address] | | | | | articular | [address] | [address]em [address] | | | | | cartilage | [address] | [address] | | | | | Procedures | [place], | [place], [place] | | | | | REQUEST TO | [place] [address] | [address] | | | | | SURGERY | Phone: | | | | | | CANVAS REPAIRER | [phone] | | | | | | NV BONE | Fax: | | | | | | BIOPSY,OPEN | [phone] | | | | | | DEEP NV | | | | | | | EXCIS/CURET | | | | | | | BENIGN TUMR | | | | | | | CLAV/SCAPULA | | | | | | | NV EXCIS | | | | | | | BENIGN TUMR | | | | | | | CLAV/SCAP,AU | | | | | | | TOGRFT NV | | | | | | [...] | | | | | | | [facility] | Orthopaedics | | | | | | & Fractur | [address] | | | | | | [address] | Naeem Mcrae | | | | | | Nirav Kovacs | [place] | | | | | | [place], | [place], [place] | | | | | | [place] [address] | [address] | | | | | | Phone: | | | | | | | [phone] | | | | | | | Fax: | | | | | | | [phone] | | +--------+--------+ + + + + [...] | (Primary Dx) | | | | [place], [place] | | | | | | [address] | | | | | | [phone] | | | +--------+---------+ + + + [...] + documented in this encounter Progress Notes aMylin Bird - 01/03/2009 3:50 PM PDTAddended by: [...] 08/2007 right knee Hx lumbar fusion 05/2008 [id number] with bone spur removals Hx appendectomy Hx cholecystectomy Hx section Hx hysterectomy Gastric bypass Mayra Padgett wt 278 01/18 Paniculectomy Allergies: Allergies Allergen Reactions Keflex (Cephalexin) Sulfa (Sulfonamides) Codeine Penicillins Clindamycin Cipro (Ciprofloxacin) Tramadol Morphine IM ( only in [facility]) made gut pain worse 08/27/06: Trial of oral MSIR caused leg swelling Clarithromycin Hives Mainly in the legs Eqeyqrd-nizwsxdzrl-zuh-caff Balance problems Amitriptyline Grand mal seizures Medications: [...] signs are noted as recorded by the Computer Installer. General: Alert, awake, and oriented x3. No [...] No: | | | | | | [id number] Name: | | | | | | BELINDA MEEHAN | | | | | | Birthday: 1960 | | | | | | Sex: F | | | | | | Alias:Patient Location: | | | | | | [id number]: Outpatient | | | | | | ActiveOrdering | | | | | | Physician: JOSÉ MIGUEL | | | | | | MARYSOL MORENO SCAPULA | | | | | | COMPLETE completed on | | | | | | 01/01/2009 11:55 | | | | | | AMAccession # | | | | | | [id number]:LEFT | | | | | | SCAPULA [...]
--- OUTSIDE RECORDS SUMMARY | ~2019-12-13 | XMS | Encounter Summary ---
Demographics + + + | Address | [address] | | | [place] [address] | + + + | Home Phone [...] Providers + +------+ + | Care Unix Systems Administrator Name | Role | Phone | + +------+ + | Pedrito Gutierrez MD | PCP | | + +------+ + Encounter Details +--------+ + + + + | Date | Type | Department | Care Team | Description | +--------+ + + + + | 12/09/ | DELETED | [facility] | Management, | InPt Prog Notes | | 2005 | TRANSCRIPTI | | Discharge Case | | | | ON | | | | +--------+ + + [...]
--- OUTSIDE RECORDS SUMMARY | ~2019-12-13 | XMS | Encounter Summary ---
Demographics + + + | Address | [address] | | | [place] [address] | + + + | Home Phone [...] Team Providers + +------+ + | Care Tester [employer] Name | Role | Phone | + [...] | | | | Internal | T, ANP | Bandar Stroud MD | | | | | hemorrhoid | [place], [place] | [address] [facility] | | | | | Rectal pain | [address] | [facility] | | | | | Procedures | | [address] [place], | | | | | CONSULT TO | | [place] | | | | | COLORECTAL | | [address] | | | | | SURGERY | | Phone: | | | | | | | [phone] | | | | | | | Fax: | | | | | | | [phone] | +--------+--------+ + + + + Encounter Details +--------+ + + + + | Date | Type | Department | Care Team | Description | +--------+ + + + + | 08/10/ | Regional Liaison | [facility] | Nuris Cardenas, ANP | Internal Hemorrhoid; | | 2008 | | [place] [address] [address] | | Rectal Pain | | | | [address] | | | | | | Mailcode: [id number] | | | | | | [facility] | | | | | | [place], [place] | | | | | | [address] | | | | | | [phone] | | | +--------+ + + + [...] + | Diagnosis | + + | Internal hemorrhoid Internal hemorrhoids without mention of complication | + + | Rectal pain Anal or rectal pain | + + documented in this encounter"
--- OUTSIDE RECORDS SUMMARY | ~2019-12-13 | XMS | Encounter Summary ---
Demographics + + + | Address | [address] | | | [place] [address] | + + + | Home Phone [...] | ECON | Unknown | | | Urdy | | | | + + +---------+ + | Sree Wells | ECON | Unknown | | + + +---------+ + | Marco Antonio Wells | ECON | Unknown | | + + +---------+ + Care Team Providers + +------+ + | Care Encapsulator Name | Role | Phone | + [...] + + | Authorized | Specialty | Audiology | Diagnoses | | Esarey, | | | Services | | Meniere's | Emmy-Tajt | [place], [place] | | | Required | | disease, | i, | [facility] [address] | | | | | unspecified | [place] | [address] | | | | | laterality | , [place] [address] | [address] [place] | | | | | | [address] | [place], [place] | | | | | | [place], | [address] Phone: | | | | | | [place] | [phone] | | | | | | [address] | Fax: | | | | | | Phone: | [phone] | | | | | | [phone] | | | | | | | Fax: | | | | | | | [phone] | | + + + + + + + Evaluate & Treat (Routine) + + + + + + + | Status | Reason | Specialty | Diagnoses / | Referred By | Referred To | | | | | Procedures | Contact | Contact | + + + + + + + | Authorized | Specialty | Otolaryngolog | Diagnoses | | Chadwick, Ulysses | | | Services | y | Meniere's | Emmy-Jefft | EMD [address] | | | Required | | disease, | i, | [address] | | | | | unspecified | Sulaiman-Russell | [address] | | | | | laterality | , [address] | [place], | | | | | | [address] | [place] [address] | | | | | | [place], | Phone: | | | | | | [place] | [phone] | | | | | | [address] | Fax: | | | | | | Phone: | [phone] | | | | | | [phone] | | | | | | | Fax: | | | | | | | [phone] | | + + + + + + + Reason for Visit + +--------+ + | Reason | Onset | Comments | | | Date | | + +--------+ + | Referral (Follow up) | 10/16/ | | | | 2019 | | + +--------+ + Encounter Details +--------+ + + + + | Date | Type | Department | Care Team | Description | +--------+ + + + + | 10/16/ | Telephone | [facility] | Alanis, | Referral (Follow up) | | 2019 | | MEDICINE [facility] [address] | MD [place] | | | | | [place], | [address] | | | | | [place] [address] | [place] [address] | | | | | [phone] | [phone] | | | | | | | [...] this encounter Miscellaneous Notes Telephone Encounter - Teresa Mitchell Rod Buster - 10/17/2019 11:23 AM PDTPatie nt is scheduled with Dr. Genao and Elisabet for follow up on 12/21/19. Needs a new referral. Orders pended. YOVANI 08/15/19Electronically signed by Destiney Rapp 10/17/2019 11:28 AM PDTdocumented in this encounter Plan of Treatment +--------+---------+ + + + | Date | Type | Specialty | Care Team | Description | +--------+---------+ + + + | 12/20/ | Office | Audiology | Elisabet Munson MS | | | 2019 | Visit | | [facility] [address] [place] | | | | | | [place] [address] | | | | | | [phone] | | | | | | | | +--------+---------+ + + + | 12/20/ | Office | Otolaryngology | lUysses Genao MD | | | 2019 | Visit | | [address] | | | | | | [address] [place] | | | | | | [place] [address] | | | | | | [phone] | | | | | | | | +--------+---------+ + + + | 02/15/ | Office | Internal Medicine | Alanis, | | | 2019 | Visit | | MD Petrona | | | | | | [address] [place] | | | | | | [place] [address] | | | | | | [phone] | | | | | | | | +--------+---------+ + + + + + +--------+ + + | Name | Type | Priori | Associated Diagnoses | Order Schedule | | | | ty | | | + + +--------+ + + | * [facility] [place] | Outpatient | Routin | Meniere's disease, | Expected: | | Otolaryngology - AMB | Referral | e | unspecified | 10/17/2019, Expires: | | Referral | | | laterality | 10/16/2020 | + + +--------+ + + | * [facility] [place] | Outpatient | Routin | Meniere's disease, | Expected: | | Audiology and | Referral | e | unspecified | 10/17/2019, Expires: | | [facility] Services | | | laterality | 10/16/2020 | | - AMB Referral | | | | | + + +--------+ + + documented as of this encounter Visit Diagnoses + + | Diagnosis | + + | Meniere's disease, unspecified laterality - Primary | + + documented in this encounter"
--- OUTSIDE RECORDS SUMMARY | ~2019-12-13 | XMS | Encounter Summary ---
Demographics + + + | Address | [address] | | | [place] [address] | + + + | Home Phone | | + + + | Preferred Language | Unknown | + + + | Marital Status | | + + + | Yazdanism Affiliation | 1001 | + + + [...] Team Providers + +------+ + | Care Roading Engineer Name | Role | Phone | + +------+ + | Petrona Thapa | PCP | | | MD | | | + +------+ + Reason for Visit + +--------+ + | Reason | Onset | Comments | | | Date | | + +--------+ + | Medication Refill | 02/17/ | | | | 2018 | | + +--------+ + Encounter Details +--------+--------+ + + + | Date | Type | Department | Care Team | Description | +--------+--------+ + + + | 02/17/ | Refill | [facility] | Alanis, | Medication Refill | | 2018 | | MEDICINE [address] | MD [place] | | | | | [place], | [address] [facility] | | | | | [place] [address] | [place] [address] | | | | | [phone] | [phone] | | | | | | | [...] 2019 | Visit | | [facility] [address] [place] | | | | | | [place] [address] | | | | | | [phone] | | | | | | | | +--------+---------+ + + + | 12/20/ | Office | Otolaryngology | Ulysses Genao MD | | | 2019 | Visit | | [address] | | | | | | [address] [place] | | | | | | [place] [address] | | | | | | [phone] | | | | | | | | +--------+---------+ + + + | 02/15/ | Office | Internal Medicine | Alanis, | | | 2019 | Visit | | MD [place] | | | | | | [address] [place] | | | | | | [place] [address] | | | | | | [phone] | | | | | | | | +--------+---------+ + + + documented as of this encounter Visit Diagnoses + + | Diagnosis | + + | Chest pain, unspecified type | + + documented in this encounter"
--- OUTSIDE RECORDS SUMMARY | ~2019-12-13 | XMS | Encounter Summary ---
Demographics + + + | Address | [address] | | | [place] [address] | + + + | Home Phone [...] Providers + +------+ + | Care Dye Tub Tender Name | Role | Phone | [...] | | | | [place], | [address] | | | | | | [place] | Phone: | | | | | | [address] | [phone] | | | | | | Phone: | Fax: | | | | | | [phone] | [phone] | | | | | | Fax: | | | | | | | [phone] | | +--------+ + + + + [...] + + | 04/18/ | Office | [facility] | Alanis, | Poor memory (Primary | | 2019 | Visit | MEDICINE [address] | MD [place] | Dx); [address] | | | [address] [place], | [address] [facility] | deficiency; Fatty | | | | [place] [address] | [place] [address] | liver | | | | [phone] | [phone] | | | | | | | [...] Assessment ([facility]) Office Visit from 04/18/2019 in [facility] MEDICINE Visuospatial / Executive 4 Naming [...] Common migraine COPD (chronic obstructive pulmonary disease) ([facility]) Depression Diarrhea Dumping syndrome Fall at home Fatigue fracture of vertebra Fibromyalgia Full dentures GERD (gastroesophageal reflux disease) Glaucoma Hyperparathyroidism ([facility]) Hypothyroidism IBS (irritable bowel syndrome) Idiopathic scoliosis Leg edema Low back pain Lumbar postlaminectomy syndrome Lumbar radiculopathy primarily right 01/04/2015 Meniere syndrome Migraine with aura Migraines Muscle cramping Muscle spasm Myalgia Nausea Nonalcoholic hepatosteatosis Obesity Opioid dependence ([facility]) Orthostatic hypotension OLIVER (obstructive sleep apnea) Osteoarthritis, generalized Osteopenia Osteoporosis Palpitations Peripheral neuropathy Rheumatoid arthritis ([facility]) Right arm pain 01/04/2015 RLS (restless legs syndrome) S/P lumbar fusion 01/04/2015 Scoliosis Sleep apnea Spondylosis with myelopathy, lumbar region Stroke ([facility]) Syncope Tremor Type II or unspecified type [...] COLONOSCOPY; Surgeon: Luther Brito MD; Location: [facility] MEDICAL PROCEDURE UNIT DILATION AND CURETTAGE OF UTERUS ELBOW SURGERY FINGER TRIGGER RELEASE 2002 FINGER TRIGGER RELEASE 2009 GASTRIC BYPASS SURGERY 2004 HYSTERECTOMY 05/14/1980 JOINT REPLACEMENT Bilateral 2006 2007 KNEE ARTHROSCOPY 2004 LAPAROSCOPY 01/27/2015 LAPAROTOMY 2008 ROTATOR CUFF REPAIR 2005 SPINE SURGERY TONSILLECTOMY 1964 UPPER GASTROINTESTINAL ENDOSCOPY N/A 12/18/2017 Procedure: EGD; Surgeon: Luther Brito MD; Location: [facility] MEDICAL PROCEDURE UNIT CURRENT MEDICATIONS Current [...] mcg 1,000 mcg Intramuscular Q30 Days Cla udiu-Gily Emmy-Tajti, MD 1,000 mcg at 04/18/19 0955 ALLERGIES Allergies Allergen Reactions Ensure Diarrhea Food Diarrhea Lactose Lxqeudajhf-Auc-Hjuq-Codeine Other (See Comments) Balance problems Codeine Sulfate Nausea Only Food Allergy Formula Diarrhea Ensure Levofloxacin Hives, Itching and Rash Butalbital Ropinirole Amitriptyline Hcl Other (See Comments) Confused and questionable for seizures Oxqioikred-Nwfq-Pemqiqlg Rash duplicate Zqcaltjuno-Jpzl-Gswivayh Hives and Rash Cephalexin Hives Ciprofloxacin Hives [...] 1. Parts of this documentwere created using Isai speech recognition software. As a resu lt, there may be unintended word spelling errors. Every attempt was made to correct the di ctation. doshantelle colin in this encounter Plan of Treatment +--------+---------+ + + + | Date | Type | Specialty | Care Team | Description | +--------+---------+ + + + | 12/20/ | Office | Audiology | Elisabet Munson MS | | | 2019 | Visit | | [facility] [address] [place] | | | | | | [place] [address] | | | | | | [phone] | | | | | | | | +--------+---------+ + + + | 12/20/ | Office | Otolaryngology | Ulysses Genao MD | | | 2019 | Visit | | [address] | | | | | | [address] [place] | | | | | | [place] [address] | | | | | | [phone] | | | | | | | | +--------+---------+ + + + | 02/15/ | Office | Internal Medicine | Alanis, | | | 2019 | Visit | | MD [place] | | | | | | [address] [place] | | | | | | [place] [address] | | | | | | [phone] | | | | | | | [...] | | | FILTRATION | mL/min/1.73m2 | [facility] | | | [place] | RATE,ESTIMATED | | MEDICAL | | | | mL/min/1.36q6Atki than | | CENTER - | | [...] | 9.9 | 8.7 - 10.4 | [facility] | [...] + | [address] | [address] | [place] | [phone] | | [facility] | | [address] | | | - LABORATORY | | | | + + + + + Folate (04/18/2019 11:29 AM PST) + +-------+ + + + | Component | Value | Ref Range | Performed | Pathologist | | | | | At | Signature | + +-------+ + + + | FOLATE | 40.9 | >5.4 ng/mL | [facility] | | | | | | STYudy [...] [address] | [place] | [phone] | | [facility] | | [address] | | | - LABORATORY | | | | + + + + + Vitamin B-12 (04/18/2019 11:29 AM PST) + + + + + + | Component | Value | Ref Range | Performed | Pathologist | | | | | At | Signature | + + + + + + | VITAMIN | >78054 (H)Comment: | 156 - 672 pg/mL | [...] [address] | [place] | [phone] | | [facility] | | [address] | | | - LABORATORY | | [...] | | | First dose on [facility] 10/15/17 at 1215 | | | | [...]
--- OUTSIDE RECORDS SUMMARY | ~2019-12-13 | XMS | Encounter Summary ---
Demographics + + + | Address | [address] | | | [place] [address] | + + + | Home Phone [...] + + + | Author | [facility] | + + + | Organization | [facility] | + + + | Address [...] Team Providers + +------+ + | Care Individual Small Group Instructor Name | Role | Phone | [...] | Pain | Diagnoses | [place]acle, | [place], | | | | Management | LBP (low | NIHARIKA Jean | Lukasz Rhodes, PhD | | | | | back pain) | [address] | [address] | | | | | DJD | [address] | Ave | | | | | (degenerativ | [place], [place] | [place], [place] | | | | | e joint | [address] | [address] | | | | | disease) of | | Phone: | | | | | knee Knee | | [phone] | | | | | pain Major | | Fax: | | | | | depressive | | [phone] | | | | | disorder, | [...] Description | +--------+---------+ + + + | 04/13/ | Office | [facility] at [facility] | Lukasz Charles, | Major Depressive | | 2007 | Visit | [address] | PhD [address] | Disorder, Recurrent | | | | Mailcode: 15P | [place], [place] | Episode, Mild (HCC); | | | | [place] for [facility] | [address] | LBP (Low Back | | | | and Healing, | [phone] | Pain); Migraine | | | | | | Headache; Adjustment | | | | Floor [place], [place] | | Disorder with | | | | [address] | | Anxiety | | | | [phone] | | | +--------+---------+ + + + [...] this encounter Progress Notes Lukasz Charles - 04/13/2008 10:01 AM PDTPROGRESS NOTE: Belinda Meehan is a 47 y.o. female with head, abdominal, back, and leg pain. She report ed that she is looking forward to back surgery. She expects to hear this week when it will be scheduled. We discussed her plans to keep busy as she recovers from surgery. She plans to make blankets and other crafts during recovery. She will start physical therapy 6 weeks after surgery. She currently goes to therapy 3 times per week and she likes the therapy emily glasgow She reported having more headaches and some fainting. She is working with her primary c are doctor and a neurologist for the headaches. She reported that she found some old books, pictures and recipes from her mother. She was very pleased to find them and we discussed t he benefit of distraction. We discussed her Thanksgiving plans and emphasized the need to p walt herself. Ms. Meehan has ongoing depression and frustration. She is not suicidal. She is strugglin g with diffuse pain and poor sleep. She is very optimistic about surgery and she is active in physical therapy. She has some good plans for her surgical recovery period. Diagnosis: [place] I: 1. (296.31) Major depressive disorder, recurrent, mild. 2. (309.24) Adjustment disorder with anxiety. 3. 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 [place] II: Deferred [place] III: abdominal pain, migraine headache, low back pain. [place] IV: low finances [place] V: GAF 55-60 Plan: return with next medical follow-up appointment. Check mood, pain, relaxation, activ ity, distraction, eating. Ask about headaches, fainting, surgery. Continue cognitive/behav ioral therapy. Total time spent with patient was approximately 45 minutes. LUKASZ CHARLES PHD [facility] [address] [facility] [address] [address] documented in this encount er Plan of Treatment + + +--------+ + + | Name | Type | Priori | Associated Diagnoses | Order Schedule | | | | ty | | | + + +--------+ + + | [facility], | Procedures | Routin | Major Depressive | Ordered: 04/13/2008 | | OFFICE (05-86) | | e | Disorder, Recurrent | | | | | | Episode, Mild (HCC) | | | | | | LBP (Low Back Pain) | | | | | | Migraine Headache | | | | | | Adjustment [...]
--- OUTSIDE RECORDS SUMMARY | ~2019-12-13 | XMS | Encounter Summary ---
Demographics + + + | Address | [address] | | | [place] [address] | + + + | Home Phone [...] Providers + +------+ + | Care Physical Therapy Director Name | Role | Phone | [...] | | | | | Encounter | [place] | | | | | for | [address] | [address] | | | | | long-term | | Phone: | | | | | (current) | | [phone] | | | | | use of other | | Fax: | | | | | medications | | [phone] | | | | | LBP (low [...] + + | 08/09/ | Office | [facility] at [facility] | Lukasz Charles, | Major depressive | | 2013 | Visit | [address] | PhD [address] | disorder, recurrent | | | | Mailcode: [id number] | [place], [place] | episode, moderate | | | | [place] for [facility] | [address] | ([facility]) (Primary Dx); | | | | and Healing, | [phone] | LBP (low back pain); | | | | | | Fibromyalgia; | | | | Floor [place], [place] | | Adjustment disorder | | | | [address] | | with anxiety | | | | [phone] | | | +--------+---------+ + + + [...] encounter Progress Notes Lukasz Charles, PhD - 08/09/2013 10:46 AM PSTPROGRESS NOTE: Belinda Meehan is a 53 y.o. female with diffuse body pain. She also has some symptoms of depression and some anxiety along with her pain. She reported ongoing stress in her life b ut she also described good activity. Both her sons are living with her and her son's girlfr jose f has moved back in. There is a lot of stress with that relationship. She reported that she has been doing a lot of things for her granddaughter. She has been doing some crafts a nd some paperwork things. She is very motivated to establish some stability for her grandda ughter regardless of what the girl's parents do. We discussed how the motivation and activi ty are very good things. We discussed the need for ongoing self-care as she takes care of o ther things. We discussed how she cannot afford to neglect her own needs. She reported moris t she twisted her ankle a few days ago. She also reported that she has fallen out of bed wh ile she has been dreaming. She is planning to talk with her sleep doctor about it. She rep orted that she is not going to have a spinal cord stimulator because her pain is too diffuse . She described stable mood. Ms. Meehan has depression and a lot of stress in her life. She is not suicidal. She has a tendency to neglect her own needs as she is taking care of her granddaughter, but it also gives her a lot of motivation. Diagnosis: [place] I: 1. (296.32) Major depressive disorder, recurrent, moderate. 2. (309.24) Adjustment disorder with anxiety. [place] II: Deferred [place] III: abdominal pain, migraine headache, low back pain, fibromyalgia. [place] IV: low finances [place] V: GAF 55-60 Plan: return in 1 month. Check mood, pain, activity, stress management. Ask about any ch anges at home, taking care of her own self, sleeping. Continue cognitive/behavioral therapy . Total time spent with patient was approximately 45 minutes. LUKASZ CHARLES PHD [facility] [address] [place] [address] And [facility], [address] [place] [address] documented in this en counter Plan of [...]
--- OUTSIDE RECORDS SUMMARY | ~2019-12-13 | XMS | Encounter Summary ---
Demographics + + + | Address | [address] | | | [place] [address] | + + + | Home Phone [...] Providers + +------+ + | Care Manager Med Surg Name | Role | Phone | + +------+ + PCP | Unavailable | + +------+ + Encounter Details +--------+ + + + + | Date | Type | Department | Care Team | Description | +--------+ + + + + | 10/23/ | Office | [facility], | Clinic, [...] as of this encounter Progress Notes Interface, Certified Phlebotomist In - 02/15/2006 2:03 AM PDT [id number] GEOVANNI SKELTON Molly [id number] Clinic Date: 10/23/2005 Clinic: Endocrinology Subjective: Belinda Meehan is a 45-year-old woman with previous severe metabolic syndrome who underwent gastric bypass surgery in November 2003. 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 Since her last visit here on July 03, 2005, she underwent an exploratory laparotomy on July 25, 2005, performed by Dr. Padgett for evaluation of abdominal pain. She has been having episodes of severe pain that last up to 45 minutes that occur in variable locations throughout her abdomen. Once the pain starts, it sometimes moves from one location to another. It does not seem to be clearly related to eating or fasting, nor to specific food types or liquids. She also is suffering from increased low back pain and accordingly, underwent MRI imaging of her back on October 06, 2005, in [place], [place]. This study showed a moderate central disk bulge at L4-L5 consistent with a herniated nucleus pulposus. There has been some discussion by her physicians in [place] about the possibility of giving her epidural pain medication and/or glucocorticoid injections. To further evaluate her abdominal pain, she underwent an abdominal CT imaging study with contrast this morning. She is scheduled to see Dr. Padgett again this afternoon. Medications: 1. Promethazine 0.25 mg p.r.n. 2. Vitamin B12 1000 mcg IM every month. 3. Ranitidine 150 mg p.o. b.i.d. 4. Wellbutrin 300 mg daily. 5. Propranolol 60 mg b.i.d. 6. Ibuprofen 800 mg p.o. t.i.d. 7. Multivitamin 2 daily. 8. Vitamin E 400 units daily. 9. Aspirin 81 mg daily. 10. Magnesium 400 mg b.i.d. 11. Calcium with Vitamin D, 600 mg, 4 tables daily. 12. Glucosamine sulfate 1500 mg daily. 13. Colace 100 mg p.o. q.i.d. p.r.n. 14. Betoptic eye drops 0.25% b.i.d. 15. Alrex eye drops (anti-inflammatory) 0.25% b.i.d. Physical Examination: Vital Signs: Weight 177.2 pounds (increased 8 pounds), blood pressure 104/84, and pulse 76 beats per minute and regular. General: She is alert and in no acute distress. Mood within normal limits. Cardiac: Regular rate and rhythm. No murmur, S3, S4, or rubs. Normal pulses. Abdomen: No hepatosplenomegaly, masses, or tenderness. Extremities: Trace pretibial edema. Laboratory Studies: Her most recent laboratory studies were performed in [place] on July 02, 2005. At that time, her fasting serum glucose concentration was 92 mg/dL, AST 36 units per litre, ALT mildly elevated at 80 units per litre, alkaline phosphatase mildly elevated at 145 units per litre, albumin normal at 4 g/dL, and otherwise unremarkable results. Her 25-hydroxyvitamin D concentration was adequate with a level of 46 ng/mL. In summary, Belinda appears to be doing well from an Endocrine standpoint. However, she is having severe low back pain, presumably related to a herniated nucleus pulposus at L4-L5. In addition, she is having idiopathic severe abdominal pain lasting up to 45 minutes per episode in variable locations in her abdomen. Dr. Padgett will be evaluating this problem further, including reviewing the results of her abdominal CT with contrast that was performed this morning. Belinda will return to see me again in about 3 or 4 months. Beto Meeks M.D. PD / HS [id number] / [id number] / [id number] / cc: Joanna Arshad M.D. [address] [place] [address] Electronically signed by Beto Meeks 02-14-2006 02:02:42 AM documented i n this encounter Plan of Treatment Not on filedocumented as of this encounter Visit Diagnoses Not on filedocumented in this encounter"
--- OUTSIDE RECORDS SUMMARY | ~2019-12-13 | XMS | Encounter Summary ---
Demographics + + + | Address | [address] | | | [place] [address] | + + + | Home Phone [...] Team Providers + +------+ + | Care Sales Representative Education Courses Name | Role | Phone | + +------+ + | Pedrito Gutierrez MD | PCP | | + +------+ + Encounter Details +--------+---------+ + + + | Date | Type | Department | Care Team | Description | +--------+---------+ + + + | 02/01/ | Office | [facility] | Chris Padgett, | Status Post | | 2006 | Visit | [place] [address] | [address] | Bariatric Surgery; | | | | Ave Mailcode: CH4S | [address] | Follow-Up | | [facility] | [place], [place] | Examination | | | | and Healing, | [address] | Following Surgery | | | | Building | [phone] | | | | | Floor [place], [place] | | | | | | [address] | | | | | | [phone] | | | +--------+---------+ + + + [...] + + + | Blood Pressure | 119/71 | 2007 1:02 PM | | | | | PDT | | + + + + + | Pulse | 74 | 2007 1:02 PM | | | | | PDT | | + + + + + | Temperature | 36.8 C (98.3 F) | 2007 1:02 PM | | | | | PDT | | + + + + + | Respiratory Rate | 16 | 2007 1:02 PM | | | | | PDT | | + + + + + | Oxygen Saturation | - | - | | + + + + + | Inhaled Oxygen | - | - | | | Concentration | | | | + + + + + | Weight | 88.2 kg (194 lb 8 | 2007 1:02 PM | | | | oz) | PDT | | + + + + + | Height | - | - | | + + + + + | Body Mass Index | 28.72 | 01/11/2007 2:43 PM | | | | | PDT | | + + + + + documented in this encounter Progress Notes Chris Padgett - 03/02/2007 6:21 PM PDT 44 y/o woman s/p gastric bypass w/ 1 yr history of intermittent abdominal pain comes to [facility] for 3 mo f/u evaluation with no new studies. She reports that her pain is moderately wel l controlled with her current regimen of pain medications prescribed by the pain clinic. Silvano quency and severity of pain has been decreasing with no ER visits since her last appointment . She also reports that her PCP will not refer her to urologist for assesment of her continu ed stress incontinence. We discussed the possibility of scheduling a urology consult for her when she follows up in our clinic in 3 mos. PE: Gen: well-appearing, NAD Abd: soft, NT, ND, normoactive bowel sounds Cardio: RRR, no m/r/g Chest: CTA bilaterally Last edited by: GRACE LEAL (ThuFeb 01, 2007 Grace Ortiz Md - 02/01 2:05 PM PDT44 y/o woman s/p gastric bypass w/ 1 yr history of intermittent abdominal pain comes to clinic for 3 mo f/u evaluation with no new studies. She reports that her pain is moderately well controlled with her current regimen of pain medications prescribed by the pain clinic. Frequency and severity of pain has been decreasing with no ER visits since her last appointment. She also reports that her PCP will not refer her to urologist for assesme nt of her continued stress incontinence. We discussed the possibility of scheduling a urolog y consult for her when she follows up in our clinic in 3 mos. PE: Gen: well-appearing, NAD Abd: soft, NT, ND, normoactive bowel sounds Cardio: RRR, no m/r/g Chest: CTA bilaterally documented in this encoun ter Plan of Treatment Not on filedocumented as of this encounter Visit Diagnoses + + | Diagnosis | + + | Status post bariatric surgery Bariatric surgery status | + + | Follow-up examination following surgery Follow-up examination, following unspecified | | surgery | + + documented in this encounter"
--- OUTSIDE RECORDS SUMMARY | ~2019-12-13 | XMS | Encounter Summary ---
Demographics + + + | Address | [address] | | | [place] [address] | + + + | Home Phone [...] Team Providers + +------+ + | Care Liaison Officer Name | Role | Phone | + +------+ + | Sulaiman Carrera MD | PCP | | + +------+ + Encounter Details +--------+ + + + + | Date | Type | Department | Care Team | Description | +--------+ + + + + | 05/12/ | Hospital | Registration [id number] | Rohan Foley MD | | | 2005 | Activity | [address] | | | | | | [address] Mailcode: [id number] | | | | | | [place], [place] | | | | | | [address] | | | | | | [phone] | | | +--------+ + + + [...]
--- OUTSIDE RECORDS SUMMARY | ~2019-12-13 | XMS | Encounter Summary ---
Demographics + + + | Address | [address] | | | [place] [address] | + + + | Home Phone [...] Providers + +------+ + | Care General Expeditor Name | Role | Phone | + [...] + + | 04/08/ | Telephone | [facility] | Alanis, | Headache | | 2016 | | MEDICINE [address] | MD [place] | | | | | [place], | [address] [facility] | | | | | [place] [address] | [place] [address] | | | | | [phone] | [phone] | | | | | | | [...] 04/08/2017 4:44 PM PDTReceived call from slick sims States that she is having a really bad headache after bending down. States this is not he r usual migraine Headache. I instructed patient to go to an urgent care near her home ([facility] in [place], [place]) or go to the nearest Er. Patient was informed MD mary for the day.Maida ctronically signed by Maggie Montoya LPN at 04/08/2017 4:49 PM PDTdocumented in this [facility] Plan of Treatment +--------+---------+ + + [...] | | | | | [place] [address] | | | | | | [phone] | | | | | | | | +--------+---------+ + + + | 12/20/ | Office | Otolaryngology | Ulysses Genao MD | | | 2019 | Visit | | [address] | | | | | | [address] [place] | | | | | | [place] [address] | | | | | | [phone] | | | | | | | | +--------+---------+ + + + | 02/15/ | Office | Internal Medicine | Alanis, | | | 2019 | Visit | | [place] | | | | | | [address] [place] | | | | | | [place] [address] | | | | | | [phone] | | | | | | | | +--------+---------+ + + + documented as of this encounter Visit Diagnoses Not on filedocumented in this encounter"
--- OUTSIDE RECORDS SUMMARY | ~2019-12-13 | XMS | Encounter Summary ---
Demographics + + + | Address | [address] | | | [place] [address] | + + + | Home Phone [...] Team Providers + +------+ + | Care Sql Server Architect Name | Role | Phone | + +------+ + | Pedrito Gutierrez MD | PCP | | + +------+ + Reason for Visit + + + | Reason | Comments | + + + | LBP - Low back pain | | + + + | AP - Abdominal pain | | + + + Encounter Details +--------+---------+ + + + | Date | Type | Department | Care Team | Description | +--------+---------+ + + + | / | Office | [facility] | Delfina Molina, | LBP (Low Back Pain); | | 2007 | Visit | Pain Center at | ANP | Spondylosis with | | | | [facility] | | Myelopathy, Lumbar | | | | [address] | | Region; Herniated | | | | Mailcode: [id number] | | Lumbar | | | | [place] for [facility] | | Intervertebral Disc | | | | and Healing, | | L4-5; Fibromyalgia | | | | Building | | syndrome 729.1; | | | | Floor [place], [place] | | Bilateral Knee Pain; | | | | [address] | | Arthroplasty of the | | | | [phone] | | Left Knee; DJD | | | | | | (Degenerative Joint | | | | | | Disease) of Knee; | | | | | | Encounter for | | | | | | Long-Term (Current) | | | | | | Use of Opioids; | | | | | | Major [...] + + + | Blood Pressure | 107/68 | 08/13/2007 8:49 AM | | | | | PST | | + + + + + | Pulse | 65 | 08/13/2007 8:49 AM | | | | | PST | | + + + + + | Temperature | 36.6 C (97.9 F) | 08/13/2007 8:49 AM | | | | | PST | | + + + + + | Respiratory Rate | 16 | 08/13/2007 8:49 AM | | | | | PST | | + + + + + | Oxygen Saturation | 98% | 08/13/2007 8:49 AM | | | | | PST | | + + + + + | Inhaled Oxygen | - | - | | | Concentration | | | | + + + + + | Weight | 89.8 kg (198 lb) | 08/13/2007 8:49 AM | | | | | PST | | + + + + + | Height | 175.3 cm (5' 9") | 08/13/2007 8:49 AM | | | | | PST | | + + + + + | Body Mass Index | 29.24 | 08/13/2007 8:49 AM | | | | | PST | | + + + + + documented in this encounter Patient Instructions Patient Instructions Delfina Molina - 08/13/2007 9:18 AM PSTContinue with current pain me dication through Dr. Gutierrez Lets see you after your right knee replacement and rehabilitation is complete Continue with Local PT and Independent Home Exercise Program documented in this encounter Progress Notes Delfina Molina - 08/13/2007 8:59 AM PSTFormatting of this note might be different from th e original. 08/13/2007 Belinda Meehan is a 47 y.o. female [facility] Pain Center Return Visit Chief Complaint: Chief Complaint Patient presents with LBP - Low back pain AP - Abdominal pain History of Present Illness: Belinda Meehan [...] care. Since prior visit this condition has not improved pain has increased in her left knee and lower back, she is having surgery for the knee in August. She does not have new pa in complaints on this visit. Expectations for this visit include: follow up to review pain management A Brief Pain Inventory and a pain drawing has be completed, which I reviewed. 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 Made better by physical therapy, activity, medications , and abdominal pain made worse by d aily dumping, certain foods "it just depends", sometimes water. Not been to the ED in the p ast few months, would go for abdominal or migraines. Change in migraine "pressure behind eyes" Dr. Gutierrez did an MRI of the brain and it was no rmal. She reprots havin gnew lenses in her glasses two weeks ago. Treatment since last visit includes: 1. Medication management: Oxycontin 40 mg Q12hr and Oxycodone PRN average of 4-6 per day. 2. Physical therapy: Two days per week in [place] knees and both legs, shoulders and back pain, walking stairs, bicycle, EMS 3. Pain psychology: NA Since prior visit, mood is reported to be: "its been better" "I have my days" "I am getting out more weather permtting", bad days I lay on the couch and sleep reported to be up 4 [place] es a night "Mostly pain" worst in the back and hips. Review of Systems: Bones, Joints, and Muscles: joint pain, muscle pain and stiffness Gastrointestinal System: negative Genitourinary System: stress incontinence Nervous System: negative Psychiatric History: depressed mood, sleep disturbance and decreased energy Since prior visit, there have been no changes in past medical history, past surgical histor y, family history, or social history. Pending 08/30/07 DR Cadet in [facility]: right knee arthroplasty. Urology evaluation for ur inary stress incontinence [ not new] PA referal pending. Current outpatient medications Medication Sig Dispense Refill omeprazole magnesium (PRILOSEC OTC) 20 mg Oral Tablet, Delayed Release (E.C.) take 1 ta blet by mouth twice daily Oxycodone HCl 5 mg Oral Tablet take 2 tablets (10 mg) by oral route every 4-6 hours as needed for pain Propranolol HCl (INDERAL LA) 120 mg Oral Capsule,Sustained Action 24 hr take 1 capsule (120 mg) by oral route once daily Procaine HCl 1 % Injection Solution procaine [...] by mouth every 12 hours 60 0 LEVOTHYROXINE OR takes .05mg daily Furosemide (LASIX) [...] CHEWABLE TAB four times a day Side effects:constipation Past Medical History Diagnosis Date Chronic Abdominal Pain on Oxycodone, NSAIDs, ASA RUQ u/s at OSH reportedly nl panc, bile ducts, liver; ct abd/pel normal, Colorectal Polyps Internal Hemorrhoid Benign Tumor of Colon 2005 endoscopy Vertebral Fracture T7,8,9 Xray T spine 2003 Optic Nerve Hemorrhage left eye Sleep Apnea Kidney Stone Fibromyalgia Intervertebral Disc Herniation 03/31/07 Reduced Vision Pneumonia Past Surgical History Procedure Date Gastric bypass [...] Collection Time Resulting Agency 05/25/2007 4:06 PM [facility] DEPARTMENT OF RADIOLOGY Component Results MR CERVICAL [...] arthrosis primarily at C3-4, C4-5, and C5-6. Physical examination: BP 107/68 | Pulse 65 | Temp (Src) 97.9 F (36.6 C) (Oral) | Resp 16 | Ht 1.753 m (5' 9") | Wt 89.812 kg (198 lbs) | SpO2 98% Body mass index is 29.24 kg/(m^2). General appearance: Flat affect, Obese, alert, in no acute distress, well groomed, pleasant Impression: 724.2AF LBP (Low Back Pain) 721.42 Spondylosis with Myelopathy, Lumbar Region 722.10H Herniated Lumbar Intervertebral Disc L4-5 729.1 Fibromyalgia syndrome 729.1 719.46J Bilateral Knee Pain V43.65D Arthroplasty of the Left Knee 715.96K DJD (Degenerative Joint Disease) of Knee V58.69 Encounter for Long-Term (Current) Use of Opioids 296.32 Major Depressive Disorder, Recurrent Episode, Moderate 309.24 Adjustment Disorder with Anxiety Belinda Meehan is a pleasant 47yo obese female with chronic musculoskeletal pain due to d egeneraitve disc disease/lumbar radiculopathy, fibromyalgia and degenerative joint disease o f the knees. Hx of left knee arthroplasty. reports that she has made improvement in pain control with time and continuing physical re habilitation [ locally]. She has a right knee arthroplasty pending. After surgical rehabil itation I would like her PT to address the lower back dysfunction, abnormal gait with knee p ain has been a barrier to progress. Belinda Meehan was compliant with all aspects of chronic opioid therapy , is using the me dication as directed, demonstrates benefits, and has no serious adverse effects. There were no significant cognitive or mood impairments. There is no evidence of diversion past or pre sent. Recommendations/Plan: A 30 minute visit with greater than 50% spent in reviewing the progress notes and counselli ng/education of the patient. 1. Continue with current pain medication through Dr. Gutierrez - Oxycontin 40 mg, Q12hr on scheduled for pain - Oxycodone 5 mg, 2 tablets Q4-6 hours PRN pain NTE 4-6 per day 2. Continue with Local PT and Independent Home Exercise Program 3. Schedule follow up after right knee replacement and rehabilitation is completed, or soon er if needed - The pateint was asked to call the clinic with any concerns or questions. DELFINA MOLINA [facility] Mail code CH 4P [facility] [address] [facility] [id number] Ailyn Bello 08/13/19 08 8:52 AM PSTCMA History: PMH/PSH/SH/ review 1. Has [...] and myositis, unspecified | + + | Bilateral Knee Pain Pain in joint, lower leg | + + | Arthroplasty of the Left Knee Knee joint replacement by other means | + + | DJD (degenerative joint disease) of knee Osteoarthrosis, unspecified whether | | generalized or localized, lower leg | + + | Encounter for Long-Term (Current) Use of Opioids Encounter for long-term (current) | | use of other medications | + + | Major depressive disorder, recurrent episode, moderate (HCC) Major depressive | | disorder, recurrent episode, moderate | + + | Adjustment disorder with anxiety | + + documented in this encounter
--- OUTSIDE RECORDS SUMMARY | ~2019-12-13 | XMS | Encounter Summary ---
Demographics + + + | Address | [address] | | | [place] [address] | + + + | Home Phone [...] Providers + +------+ + | Care Lead Software Engineer Name | Role | Phone | + +------+ + PCP | Unavailable | + +------+ + Encounter Details +--------+ + + + + | Date | Type | Department | Care Team | Description | +--------+ + + + + | 01/31/ | Results | Endocrinology, | Beto Meeks MD | | | 2002 | Only | Diabetes and | [address] | | | | | Clinical Nutrition | [place], [place] | | | | | [address] | [address] | | | | | Loop Mailcode: OPC5 | [phone] | | | | | Outpatient Clinic | | | | | | [facility] | | | | | | [place] [address] | | | | | | [phone] | | | +--------+ + + + [...] + | COMPLETE METABOLIC | Routin | 01/31/2003 | | Results for this | | SET | e | 2:43 PM | | procedure are in the | | (NA,K,CL,CO2,BUN,CRE | | PDT | | results section. | | AT,GLUC,CA,AST,ALT,B | | | | | | DEYA TOTAL,ALK | | | | | | PHOS,ALB,PROT TOTAL) | | | | | + +--------+ + + + | CBC ONLY | Routin | 01/31/2003 | | Results for this | | | e | 2:43 PM | | procedure are in the | | | | PDT | | results section. | + +--------+ + + + | PTH, SERUM | Routin | 01/31/2003 | | Results for this | | | e | 2:43 PM | | procedure are in the | | | | PDT | | results section. | + +--------+ + + + | TSH | Routin | 01/31/2003 | | Results for this | | | e | 2:43 PM | | procedure are in the | | | | PDT | | results section. | + +--------+ + + + documented in this encounter Results TSH-THYROID STIM HORMONE (01/31/2003 2:43 PM PDT) + + + + + + | Component | Value | Ref Range | Performed | Pathologist | | | | | At | Signature | + + + + + + | TSH | 3.20Comment: Test | 0.28 - 5.00 | | | | | performed by [facility] | uIU/ml | | | | | [facility] | | | | | | [facility]. | | | | + + + + + + + + | Specimen | + + | | + + + + + + + | Performing | Address | City/State/Zipcode | Phone Number | | Organization | | | | + + + + + | [facility] | [address] | [place] [address] | | | LABORATORY | | | | + + + + + PTH, SERUM (01/31/2003 2:43 PM PDT) + + + + + + | Component | Value | Ref Range | Performed | Pathologist | | | | | At | Signature | + + + + + + | PTH, SERUM | 47.0Comment: Test | 10.0 - 65.0 | | | | | performed by [facility] | pg/mL | | | | | [facility] | | | | | | Laboratory. | | | | + + + + + + + + | Specimen | + + | | + + + + + + + | Performing | Address | City/State/Zipcode | Phone Number | | Organization | | | | + + + + + | [facility] | [address] | [place] [address] | | | LABORATORY | | | | + + + + + CBC ONLY WITH PLATELET (01/31/2003 2:43 PM PDT) + + + + + + | Component | Value | Ref Range | Performed | Pathologist | | | | | At | Signature | + + + + + + | WHITE CELL | 9.6 | 4.4 - 11.0 K/cu | [facility] | | | COUNT | | mm | DEPARTMENT | | | | | | OF | | | | | | PATHOLOGY | | + + + + + + | RED CELL | 3.86 | 3.65 - 5.10 | [facility] | | | COUNT | | M/cu mm | DEPARTMENT | | | | | | OF | | | | | | PATHOLOGY | | + + + + + + | HEMOGLOBIN | 12.6 | g/dL | [facility] | | | | | | DEPARTMENT | | | | | | OF | | | | | | PATHOLOGY | | + + + + + + | HEMATOCRIT | 36.7 | % | [facility] | | | | | | DEPARTMENT | | | | | | OF | | | | | | PATHOLOGY | | + + + + + + | MCV | 95.1 | 80.0 - 96.0 fL | [facility] | | | | | | DEPARTMENT | | | | | | OF | | | | | | PATHOLOGY | | + + + + + + | MCH | 32.6 (H) | 29.0 - 32.0 pg | [...] + + + + | RDW | 13.0 | 11.5 - 15.0 % | [facility] | | | | | | DEPARTMENT | | | | | | OF | | | | | | PATHOLOGY | | + + + + + + | PLATELET | 240 | K/cu mm | [facility] | | | COUNT | | | DEPARTMENT | | | | | | OF | | | | | | PATHOLOGY | | + + + + + + | MPV | 9.7 [...] + + | [facility] DEPARTMENT OF | [address] | [place] [address] | | | PATHOLOGY | [address] | | | + + + + + | [facility] DEPARTMENT OF | [address] | [place] [address] | | | PATHOLOGY | [address] | | | + + + + + COMP METABOLIC SET (01/31/2003 2:43 PM PDT) + +---------+ + + + | Component | Value | Ref Range | Performed | Pathologist | | | | | At | Signature | + +---------+ + + + | GLUCOSE, | 146 (H) | 65 - 110 mg/dL | [...] +---------+ + + + | CREATININE | 1.1 | 0.6 - 1.1 mg/dL | [facility] | | | PLASMA | | | DEPARTMENT | | | (LAB) | | | OF | | | | | | PATHOLOGY | | + +---------+ + + + | TOTAL | 6.9 | 6.1 - 7.9 g/dL | [facility] | | | PROTEIN, | | | DEPARTMENT | | | PLASMA | | | OF | | | (LAB) | | | PATHOLOGY | | + +---------+ + + + | ALBUMIN, | 3.8 [...] + + + | ALK PHOS | 52 | 42 - 98 U/L | [facility] | | | | | | DEPARTMENT | | | | | | OF | | | | | | PATHOLOGY | | + +---------+ + + + | AST(SGOT) | 47 (H) | 15 - 41 U/L | [...] +---------+ + + + | POTASSIUM, | 3.5 [...] | + + + + + | [facility] DEPARTMENT OF | [address] | [place] [address] | | | PATHOLOGY | [address] | | | + + + + + | [facility] DEPARTMENT OF | [address] | [place] [address] | | | PATHOLOGY | [address] | | | + + + + + documented in this encounter Visit Diagnoses Not on filedocumented in this encounter"
--- OUTSIDE RECORDS SUMMARY | ~2019-12-13 | XMS | Encounter Summary ---
Demographics + + + | Address | [address] | | | [place] [address] | + + + | Home Phone [...] Providers + +------+ + | Care Manager International Name | Role | Phone | + [...] as of this encounter Progress Notes Byron, Life Sciences Instructor In - 01/12/2005 6:46 AM PDTClinic Date: [...] months. Chris Padgett M.D. CD / HS [id number] / [id number] / [id number] / Tdocumented in this encounter Plan of Treatment Not on filedocumented as of this encounter Visit Diagnoses Not on filedocumented in this encounter"
--- OUTSIDE RECORDS SUMMARY | ~2019-12-13 | XMS | Encounter Summary ---
Demographics + + + | Address | [address] | | | [place] [address] | + + + | Home Phone [...] Team Providers + +------+ + | Care Transport Analyst Name | Role | Phone | + +------+ + | Petrona Thapa | PCP | | | MD | | | + +------+ + Reason for Visit + +--------+ + | Reason | Onset | Comments | | | Date | | + +--------+ + | Foot Pain | 07/01/ | | | | 2017 | | + +--------+ + Encounter Details +--------+ + + + + | Date | Type | Department | Care Team | Description | +--------+ + + + + | 07/01/ | Telephone | [facility] INTER[facility] | Alanis, | Foot Pain | | 2017 | | MEDICINE [address] | MD Petrona | | | | | [place], | [address] [facility] [place] | | | | | [place] [address] | [place] [address] | | | | | [phone] | [phone] | | | | | | | [...] Telephone Encounter - Maggie Montoya LPN - 07/01/2017 10:51 AM PSTPatient advised that MD krishna ut of the office and will need to go to an urgent or ER in [place] for evaluation and x-ra y. Patient understands and accepts 1 0:53 AM PSTTelephone Encounter - Susie Gilmore - 07/01/2017 8:33 AM PSTIonerubyu slick jacobsen 1. Patient called and stated that she forgot to ask for an XRAY of her left foot last week, when she went to the ER for her fall. 2. Patient states she has sharp left foot pain and swelling if her foot is not in a shoe. 3. Patient wants this order sent to [place]. Please call [phone] to discuss. 18 8:37 AM PSTdocumented in this encounter Plan of Treatment [...] | | | | | [place] [address] | | | | | | [phone] | | | | | | | | +--------+---------+ + + + | 12/20/ | Office | Otolaryngology | Ulysses Genao MD | | | 2019 | Visit | | [address] | | | | | | [address] | | | | | | [place] [address] | | | | | | [phone] | | | | | | | | +--------+---------+ + + + | 02/15/ | Office | Internal Medicine | Alanis, | | | 2019 | Visit | | MD Petrona | | | | | | [address] | | | | | | [place] [address] | | | | | | [phone] | | | | | | | | +--------+---------+ + + + documented as of this encounter Visit Diagnoses Not on filedocumented in this encounter"
--- OUTSIDE RECORDS SUMMARY | ~2019-12-13 | XMS | Encounter Summary ---
Demographics + + + | Address | [address] | | | [place] [address] | + + + | Home Phone [...] Providers + +------+ + | Care Supervisor Hydrochloric Area Name | Role | Phone | + [...] Description | +--------+--------+ + + + | 04/25/ | Refill | [facility] | Alanis, | Medication Refill | | 2016 | | MEDICINE [address] | MD Petrona | | | | | MAL[place], | [address] [facility] | | | | | [place] [address] | [place] [address] | | | | | [phone] | [phone] | | | | | | | [...] Telephone Encounter - Tamara Elliott RN - 04/28/2017 9:53 AM PSTAfter refills sent to pharmacy, received incoming faxes to request 90 day supply on her omeprazole, potassium, fu rosemide and levothyroxine Discussed with Dr. Booth and he approved her to have 90 day supplies. [facility]ron[facility] signed by Tamara Elliott RN a t 04/28/2017 10:00 AM PSTTelephone Encounter - Nuris Hartman RN - 04/27/2017 10:35 AM PS TLast refill Methocarbamol 750 mg 03/25/17 #60 documented in this e ncounter Plan of [...] | | | | | [place] [address] | | | | | | [phone] | | | | | | | | +--------+---------+ + + + | 12/20/ | Office | Otolaryngology | Ulysses Genao MD | | | 2019 | Visit | | [address] | | | | | | [address] | | | | | | [place], [place] [address] | | | | | | [phone] | | | | | | | | +--------+---------+ + + + | 02/15/ | Office | Internal Medicine | Alanis, | | | 2019 | Visit | | MD Petrona | | | | | | [address] | | | | | | [place], [place] [address] | | | | | | [phone] | | | | | | | | +--------+---------+ + + + documented as of this encounter Visit Diagnoses Not on filedocumented in this encounter"
--- OUTSIDE RECORDS SUMMARY | ~2019-12-13 | XMS | Encounter Summary ---
Demographics + + + | Address | [address] | | | [place] [address] | + + + | Home Phone [...] Team Providers + +------+ + | Care Software Applications Designer Name | Role | Phone | [...] | | | | [id number] | [place], [place] | | | | | [address] | [address] | | | | | [place], [place] | [phone] | | | | | [address] | | | | | | [phone] | | | +--------+ + + + [...] DEPARTMENT OF | [address] | [place] [address] | | | PATHOLOGY | [address] | | | + + + + + | [facility] DEPARTMENT OF | [address] | [place] [address] | | | PATHOLOGY | [address] [...] [facility] | [address] | [place] [address] | | | PATHOLOGY | [address] | | | + + + + + | [facility] | [address] | [place] [address] | | | PATHOLOGY | [address] | | | + + + + + documented in this encounter Visit Diagnoses Not on filedocumented in this encounter"
--- OUTSIDE RECORDS SUMMARY | ~2019-12-13 | XMS | Encounter Summary ---
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 Diagnosis: [place] I: 1. (296.32) Major depressive disorder, recurrent, moderate. 2. (309.24) Adjustment disorder with anxiety. 3. 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 [place] II: Deferred [place]room[place] III: abdominal pain, migraine headache, low back pain. [place] IV: low finances Broomfield V: GAF 55-60 Plan: Return in 2 weeks. Check niece's visit, pacing, relaxation, activity, distraction. Contin ue cognitive/behavioral therapy. Total time spent with patient was approximately 45 minutes. LUKASZ CHARLES PHD [facility] [address] [facility], [address] [place] [address] documented in this encount er Plan of Treatment + + +--------+ + + | Name | Type | Priori | Associated Diagnoses | Order Schedule | | | | ty | | | + + +--------+ + + | GA PSYCHOTHERPY, | Procedures | Routin | Major Depressive | Ordered: 11/11/2006 | | OFFICE (45-50) | | e | Disorder, Recurrent | | | | | | Episode, Moderate | | | | | | ([facility]) Left Knee | | | | | [...]
--- OUTSIDE RECORDS SUMMARY | ~2019-12-13 | XMS | Encounter Summary ---
Demographics + + + | Address | [address] | | | [place] [address] | + + + | Home Phone [...] Team Providers + +------+ + | Care Crisis Clinician Name | Role | Phone | + [...] as of this encounter Progress Notes Interface, Attendant Child Activity In - 09/13/2005 2:06 AM PST [id number] GEOVANNI SKELTON [facility] Date: 07/03/2005 Clinic: Endocrinology Subjective: Belinda [...] which are pending through the laboratory in [place]. Allergies: PENICILLIN, CODEINE, KEFLEX, SULFA, CIPRO, AND [...] which were done several days ago in [place]. Beto Meeks M.D. PD / HS [id number] / [id number] / [id number] / [id number] cc: Chris Padgett M.D. [facility] Electronically signed by Beto Meeks 09-12-2005 02:23:07 AM documented i n this encounter Plan of Treatment Not on filedocumented as of this encounter Visit Diagnoses Not on filedocumented in this encounter"
--- OUTSIDE RECORDS SUMMARY | ~2019-12-13 | XMS | Encounter Summary ---
Demographics + + + | Address | [address] | | | [place] [address] | + + + | Home Phone [...] Team Providers + +------+ + | Care Airline Security Representative Name | Role | Phone | [...] | | | | Mailcode: CR131 | [place], [place] | | | | | Outpatient Clinic | [address] | | | | | [facility], | [phone] | | | | | [place] [address] | | | | | | [phone] | | | +--------+ + + + [...] | | | | | 2,SERUM | [facility] | | | | | | Laboratories. | | | | + + + + + + + + | Specimen | + + | | + + + + + + + | Performing | Address | City/State/Zipcode | Phone Number | | Organization | | | | + + + + + | [facility] | [address] | [place] [address] | | | LABORATORY | | | | + + + + + documented in this encounter Visit Diagnoses Not on filedocumented in this encounter"
--- OUTSIDE RECORDS SUMMARY | ~2019-12-13 | XMS | Encounter Summary ---
Demographics + + + | Address | [address] | | | [place] [address] | + + + | Home Phone | | + + + | Preferred Language | Unknown | + + + | Marital Status | Single | + + + | Muslim Affiliation | ADV | + + + [...] Providers + +------+ + | Care Senior Mobile Developer Name | Role | Phone | [...] | | | | | | [address] [place], [place] | | | | | | [address] | | | | | | [phone] | | | +--------+ + + + [...]
--- OUTSIDE RECORDS SUMMARY | ~2019-12-13 | XMS | Encounter Summary ---
Demographics + + + | Address | [address] | | | [place] [address] | + + + | Home Phone [...] Team Providers + +------+ + | Care Graphics Production Specialist Name | Role | Phone | + +------+ + | Petrona Thapa | PCP | | | MD | | | + +------+ + Reason for Visit + +--------+ + | Reason | Onset | Comments | | | Date | | + +--------+ + | Wrist Pain | 10/16/ | | | | 2017 | | + +--------+ + Encounter Details +--------+ + + + + | Date | Type | Department | Care Team | Description | +--------+ + + + + | 10/16/ | Telephone | [facility] | Alanis, | Wrist Pain | | 2017 | | MEDICINE [address] | MD Petrona | | | | | [place], | [address] [facility] | | | | | [place] [address] | [place] [address] | | | | | [phone] | [phone] | | | | | | | [...] Telephone Encounter - Maggie Montoya LPN - 10/16/2017 1:01 PM PDTPatient notified of re commendations. Patient understands and accepts elephone Encounter - Petrona Thapa MD - 10/16/2017 12 :38 PM PDTUrgent care is best. Electronically signed by Petrona Thapa MD at 12:38 PM PDTTelephone Encounter - Malissa Redd - 10/16/2017 8:40 AM PDTPatient called and said she has been having right wrist pain. She tried to pick things up she can't hold or lift anything without crying or screaming.The pain started a few weeks ago to a mon th ago. She doesn't know what is causing the pain. She said would to know if can order an xray and send it to [facility] if possible. Please advise. [phone] signed by Malissa Redd at 10/16/2017 8:45 AM PDTdowendy denton n this encounter Plan of Treatment +--------+---------+ + [...] | | | | | [place] [address] | | | | | | [phone] | | | | | | | | +--------+---------+ + + + | 12/20/ | Office | Otolaryngology | Ulysses Genao MD | | | 2019 | Visit | | [address] | | | | | | [address] | | | | | | [place] [address] | | | | | | [phone] | | | | | | | | +--------+---------+ + + + | 02/15/ | Office | Internal Medicine | Emmy-Tajti, | | | 2019 | Visit | | MD Petrona | | | | | | [address] | | | | | | [place] [address] | | | | | | [phone] | | | | | | | | +--------+---------+ + + + documented as of this encounter Visit Diagnoses Not on filedocumented in this encounter"
--- OUTSIDE RECORDS SUMMARY | ~2019-12-13 | XMS | Encounter Summary ---
Demographics + + + | Address | [address] | | | [place] [address] | + + + | Home Phone [...] Team Providers + +------+ + | Care Neon Pumper Name | Role | Phone | + +------+ + | Maria Esther Cintron MD | PCP | | + +------+ + Encounter Details +--------+ + + + + | Date | Type | Department | Care Team | Description | +--------+ + + + + | 08/25/ | Abstract | Digestive Health | Patricia Banegas, | | | 2011 | | Center at [facility] [address] | POWER PLANT SUPERINTENDENT [address] | | | | | [address] | , [address] | | | | | Mailcode: Center | [place], [place] | | | | | [facility] and | [address] | | | | | Healing, [address] | [phone] | | | | | [place], [place] | | | | | | [address] | | | | | | [phone] | | | +--------+ + + + [...]
--- OUTSIDE RECORDS SUMMARY | ~2019-12-13 | XMS | Encounter Summary ---
Demographics + + + | Address | [address] | | | [place] [address] | + + + | Home Phone [...] + +------+ + | Care Director Of Development And Marketing Name | Role | Phone | + +------+ + | Pedrito Gutierrez MD | PCP | | + +------+ + Encounter Details +--------+ + + + + | Date | Type | Department | Care Team | Description | +--------+ + + + + | 09/14/ | Office | [facility] | Clinic, | Progress Note | | 2007 | Visit-Trans | | Rheumatology | | [...] as of this encounter Progress Notes Interface, Pin Cleaner In - 10/03/2006 2:33 AM PDT [id number] GEOVANNI SKELTON J [id number] Clinic Date: 09/14/2006 Clinic: Rheumatology Belinda Meehan is a 46-year-old woman I periodically see for fibromyalgia. She is currently concerned with having had a lot of edema, especially in the lower extremities. Dr. Gutierrez has done some labs that has not been particularly revealing. These included CK of 126, and BNP of 12 which is normal. Her CMP was completely normal, glucose was 78, calcium 8.7, creatinine 0.5. She had had LFTs in July 2006 which were normal. She has had a little bit increase in orthopnea though this has been a problem for her. She has also had a lot more right flank pain. She has started fentanyl patch for pain; and in the past, morphine did cause swelling. Her GI tract has been more settled fortunately. She did have a pneumonia within the last 2 months. Medications: Fentanyl patch 25 mcg, every 3 days changed; Trileptal 225 mg; [place] 10/325; and Actonel. Objective: Weight is 214, pulse 100 and then down to 80 as she sat, blood pressure 100/60. She is clearly upset about all of the swelling. Heart: Regular rate and rhythm. No murmurs, rubs, or gallops. Lungs: Without crackles, but there is a friction rub in the right base. Abdomen: Nontender. Swelling is present from the mid calf through the ankle into the feet and is 1+ pitting. Assessment and Plan: I went ahead and got a chest x-ray which was completely normal fortunately. TSH came back at 7.7. I called her to let her know of her normal chest x-ray and that perhaps she might benefit from a small dose of thyroid supplement. I think these patients, pretty well, generally need to be maintained on the TSH of 1 to 2.5. This is a new elevation of TSH for her. Also, I do think, perhaps, fentanyl could be causing her fluid retention. I have seen it with other opiates. Linh Lambert may have more insight as to this. Caitlin Rivera M.S., F.N.P. / [id number] / [id number] / [id number] / [id number] cc: Pedrito Gutierrez M.D. [address] [facility] [address], [place] [address] [facility] Electronically signed by Caitlin Rivera 10-02-2006 09:24:29 AM documented in this encounter Plan of Treatment Not on filedocumented as of this encounter Visit Diagnoses Not on filedocumented in this encounter"
--- OUTSIDE RECORDS SUMMARY | ~2019-12-13 | XMS | Encounter Summary ---
Demographics + + + | Address | [address] | | | [place] [address] | + + + | Home Phone [...] Team Providers + +------+ + | Care Port Engineer Name | Role | Phone | [...] | | | | | abdominal | [place] | [address] [facility] | | | | | pain | Health & | [facility] | | | | | Procedures | Science | [address] [place], | | | | | REQUEST TO | University | [place] | | | | | SURGERY | [address] | [address] | | | | | BAND SPLICER | Naeem Mcrae | Phone: | | | | | [place] | Rd | [phone] | | | | | EXPLORATORY | [place], [place] | Fax: | | | | | OF ABDOMEN | [address] | [phone] | | | | | [place] [address] | | | | | | [...] | | | | | | [address] [place], | | | | | | | [place] | | | | | | | [address] | | | | | | | Phone: | | | | | | | [phone] | | | | | | | Fax: | | | | | | | [phone] | +--------+--------+ + + + + Encounter [...] | | | [facility] | [place], [place] | | | | | and Healing, | [address] | | | | | Building [address] | [phone] | | | | | Floor [place], [place] | | | | | | [address] | | | | | | [phone] | | | +--------+---------+ + + + [...] the resident s note. CHRIS RUANO MD [facility] [address] [facility] [address] 6[address] [place] [address] Chris Peralta - 10:55 AM [...] not work at this time. Lives in [place], [place] FH: Noncontributory ROS: No recent fevers, [...] [facility] | [address] | [place] [address] | | | PATHOLOGY | [address] | | | + + + + + | [facility] | [address] | [place] [address] | | | PATHOLOGY | [address] [...]
--- OUTSIDE RECORDS SUMMARY | ~2019-12-13 | XMS | Encounter Summary ---
Demographics + + + | Address | [address] | | | [place] [address] | + + + | Home Phone [...] Team Providers + +------+ + | Care Spring Fitter Helper Name | Role | Phone | + +------+ + PCP | Unavailable | + +------+ + Encounter Details +--------+ + + + + | Date | Type | Department | Care Team | Description | +--------+ + + + + | 02/26/ | Office | | Note, Outpatient | [...] as of this encounter Progress Notes Interface, Paper Bag Making Machinist In - 01/12/2005 8:09 AM PDT [id number] [facility] Date: 02/27/2004 Clinic: [facility] Subjective: The patient underwent gastric bypass surgery in November 2003 under the care of Dr. Chris Padgett here at [facility]. She has been doing well after the surgery and currently is eating a fairly balanced diet. She eats lots of fruit and some vegetables. She ate her first salad recently, which she enjoyed very much and tolerated well. She has very rare emesis. She has 2 bowel movements per day which are formed. Her energy level is reasonably good. She continues to have gallbladder colic. She was given a prescription for Actigall, but she discontinued this medication because of the high cost. She also has problems with headaches, which she thinks were related to dryness of her eyes. The headaches have abated since she started using artifical tears and subsequently had some type of plug placed in her tear ducts by her eye doctor. Because of her recent surgery, she was on restricted activity. She just recently started using a Bowflex machine, which she has tolerated well. She underwent surgery on her right foot approximately 2 weeks ago for resection of a bone spur. She continues to walk with crutches. As a consequence of the weight loss, her knee pain has dramatically decreased. She apparently had a problem with low-iron levels several months ago, and subsequently took a multivitamin with iron for only 1 month. She is scheduled to have a repeat sleep study (possibly a home pulse oximetry) performed on March 04, 2004, which has been scheduled through the [facility] in [place]. Medications 1. Ranitidine 150 mg p.o. b.i.d. 2. Children's chewable multivitamin 2 p.o. daily. 3. Calcium 600 mg plus vitamin D, 2 chewable tablets daily. 4. Vitamin B12 1000 mcg IM every month. 5. Darvocet-N 100, which she takes very rarely p.r.n. Physical Examination Vital Signs: Weight 245 pounds, which includes an 8-pound splint on her right foot. This constitutes a total weight loss of about 83 pounds since her last preoperative clinic visit here on November 07, 2003. Blood pressure 124/78 mmHg measured in the left arm, pulse 64 beats per minute and regular, and respirations 14. General: She is alert and in no acute distress. Her mood is within normal limits. Cardiac: Regular rate and rhythm. No murmur, S3, or S4. Normal pulses, and no arterial bruits. Abdomen: No hepatosplenomegaly, masses, or tenderness. She had multiple well-healed laparoscopy scars. Extremities: Benign. In summary, she is doing very well after undergoing gastric bypass surgery in November 2003. Her dramatic weight loss is being well tolerated, although she does have ongoing pain related to preexisting gallstones. She is unable to afford the Actigall, and therefore most likely will require a cholecystectomy in the coming months. According to the patient, this procedure may be done electively sometime in early 2004. In light of her dramatic weight reduction, this bodes well for substantial weight loss during the coming 12 to 18 months. Laboratory studies pending from today include measurements of serum ferritin, 25-hydroxyvitamin D, complete metabolic set, and CBC. She will return to see me again in about 3 months. Issac Meeks M.D. MONIQUE / SHARIF [id number] / [id number] / [id number] / cc: Joanna Arshad M.D. [address] [facility] [place] [address] documented i n this encounter Plan of Treatment Not on filedocumented as of this encounter Visit Diagnoses Not on filedocumented in this encounter"
--- OUTSIDE RECORDS SUMMARY | ~2019-12-13 | XMS | Encounter Summary ---
Demographics + + + | Address | [address] | | | [place] [address] | + + + | Home Phone [...] Providers + +------+ + | Care Group Exercise Instructor Name | Role | Phone | + +------+ + | Pedrito Gutierrez MD | PCP | | + +------+ + Encounter Details +--------+ + + + + | Date | Type | Department | Care Team | Description | +--------+ + + + + | 06/24/ | Office | [facility] | Clinic, [...] as of this encounter Progress Notes Interface, Cement Block Maker In - 07/03/2006 2:33 AM PST [id number] GEOVANNI SKELTON J [id number] Clinic Date: 06/24/2006 Clinic: Rheumatology Subjective: Belinda Meehan is a 46-year-old woman here for followup of fibromyalgia. She comes from [place] and is now also working with the [facility]. I am hopeful that this will give her some relief. She continues to have GI problems. She had multiple diagnostic trials, and nothing seems to be particularly identified that is causing her abdominal pain. She has gone off many medications and has been simplified. Her LFTs are notably increased, and providers are considering a liver biopsy. I have been going back and reviewing with many of my patients the idea of a positional cervical myelopathy or positional cervical cord impingement as perhaps having been a reason for fibromyalgia symptoms. The thought is that intermittent cervical cord impingement can be a potent arousal stimulus for the sympathetic nervous system. This would impair deep sleep as we see in these patients and then lead to the downstream effects of muscle sensitivity, pain, hyperalgesia, muscle trigger points, and neurohormonal sequelae. Belinda does endorse that she had a whiplash injury about 30 years ago that did trigger migraines. However, her widespread pain did not start until much later. She has a fair amount of neck discomfort with extension, and she does not feel that her balance is normal. Current Medications: Oxycodone 15 mg as needed; promethazine 25 mg for nausea, and it does seem to be additive to the oxycodone for pain; Wellbutrin 300 mg. Objective: Weight is 192, pulse 60 and regular, blood pressure 120/70. She has tender myofascial trigger points in the bilateral trapezius with very tight bands there, as well as the bilateral supraspinatus. With Romberg's, she is unsteady, but does not fall. Her tandem gait is quite poor. She has to step out of the line. DTRs, triceps 2+ bilaterally; biceps, right to left 3; brachioradialis 2+ with inversion. Patella is 2+ bilaterally. Luo's is negative. Assessment and Plan: 1. We went ahead and did trigger point injections using 0.5% procaine for a total of 5 mL in the areas listed in the objective section, and she did have quite a response in terms of better neck range of motion after the shots. 2. At some point, I will have a discussion with Linh regarding all the neck pathology that I am seeing with these positional MRIs. I will have a meeting soon with [facility] to start doing my films here, and Belinda could potentially have one done when she arrives back next month. 3. Lastly, I do not think Phenergan is making her overall pain worse. If she has no neck pathology, we could consider a Mirapex protocol, but I really have not gone in that direction due to its occasional side effect of nausea. Belinda has had so much going on with her abdominal pain that I did not want to muddy the heard. I will see her back in 2 months. Caitlin Rivera M.S., F.N.P. / [id number] / [id number] / [id number] / [id number] cc: [facility] Electronically signed by Caitlin Rivera 07-02-2006 11:27:56 AM documented in this encounter Plan of Treatment Not on filedocumented as of this encounter Visit Diagnoses Not on filedocumented in this encounter"
--- OUTSIDE RECORDS SUMMARY | ~2019-12-13 | XMS | Encounter Summary ---
Demographics + + + | Address | [address] | | | [place] [address] | + + + | Home Phone | | + + + | Preferred Language | Unknown | + + + | Marital Status | Single | + + + | Oriental Orthodox Affiliation | ADV | + + [...] Team Providers + +------+ + | Care Alarm Installation Technician Name | Role | Phone | + +------+ + | Sulaiman Carrera MD | PCP | | + +------+ + Reason for Visit + + + | Reason | Comments | + + + | Fall Ground Level | | + + + Encounter Details +--------+ + + + + | Date | Type | Department | Care Team | Description | +--------+ + + + + | 08/10/ | Telephone | [facility] | Rosi Antonio, | Fall Ground Level | | 2013 | | [facility] at | [facility]P | | | | | [facility] | | | | | | [address] | | | | | | Mailcode: [id number] | | | | | | [facility] | | | | | | and Healing, | | | | | | Building | | | | | | Floor [place], [place] | | | | | | [address] | | | | | | [phone] | | | +--------+ + + + [...]
--- OUTSIDE RECORDS SUMMARY | ~2019-12-13 | XMS | Encounter Summary ---
Demographics + + + | Address | [address] | | | [place] [address] | + + + | Home Phone [...] Team Providers + +------+ + | Care Music Therapy Specialist Name | Role | Phone | + +------+ + PCP | Unavailable | + +------+ + Encounter Details +--------+ + + + + | Date | Type | Department | Care Team | Description | +--------+ + + + + | 07/24/ | Office | Hematology | [place], | | | 2005 | Visit-[facility]X | Oncology [address] | MD Luk[address] | | | [address] | [address] | | | | | Mailcode: [id number] | [place] [address] | | | | | [facility] | [phone] | | | | | [place], [place] | | | | | | [address] | | | | | | [phone] | | | +--------+ + + + [...] + + + | Blood Pressure | 108/72 | 07/24/2005 4:00 PM | | | | | PST | | + + + + + | Pulse | 70 | 07/24/2005 4:00 PM | | | | | PST | | + + + + + | Temperature | 36.3 C (97.3 F) | 07/24/2005 4:00 PM | | | | | PST [...] + + + + | Weight | 74.7 kg (164 lb 11.2 | 07/24/2005 4:00 PM | | | | oz) | [...]
--- OUTSIDE RECORDS SUMMARY | ~2019-12-13 | XMS | Encounter Summary ---
Demographics + + + | Address | [address] | | | [place] [address] | + + + | Home Phone [...] Providers + +------+ + | Care Water Quality Manager Name | Role | Phone | + +------+ + | Sulaiman Carrera MD | PCP | | + +------+ + Reason for Visit + + + | Reason | Comments | + + + | Return Patient | | + + + | Head pain | | + + + | Back pain | | + + + | Hip pain | | + + + | Leg Pain | | + + + Consultation (Routine) +--------+--------+ + + + + | Status | Reason | Specialty | Diagnoses / | Referred By | Referred To | | | | | Procedures | Contact | Contact | +--------+--------+ + + + + | Closed | | Pain | | Paco, | Kylah, | | | | Management | | NIHARIKA Drake | Adrien Velasquez MD | | | | | | [address] | | | | | | [place] | [place] | | | | | | [place], [place] | [facility] | | | | | | [address] | [address] | | | | | | | [place], [place] | | | | | | | [address] | | | | | | | Phone: | | | | | | | [phone] | | | | | | | Fax: | | | | | | | [phone] | +--------+--------+ + + + + Encounter Details +--------+---------+ + + + | Date | Type | Department | Care Team | Description | +--------+---------+ + + + | 06/23/ | Office | [facility] Comprehensive | Adrien Smith, | Fibromyalgia | | 2013 | Visit | Pain Center at | 1960 [facility] | syndrome 729.1 | | | | [facility] | [facility] [id number] | (Primary Dx); LBP | | | | [address] | [place], [place] | (low back pain); | | | | Mailcode: [id number] | [id number] | Chronic Bilateral | | | | [facility] | [phone] | Shoulder Pain; Post | | | | and Healing, | | laminectomy | | | | | | syndrome; Chronic | | | | Floor [place], [place] | | migraine | | | | [address] | | | | | | [phone] | | | +--------+---------+ + + + [...] + + + | Blood Pressure | 137/59 | 06/23/2013 1:17 PM | | | | | PST | | + + + + + | Pulse | 86 | 06/23/2013 1:17 PM | | | | | PST | | + + + + + | Temperature | - | - | | + + + + + | Respiratory Rate | 15 | 06/23/2013 1:17 PM | | | | | PST | | + + + + + | Oxygen Saturation | 93% | 06/23/2013 1:17 PM | | | | | PST | | + + + + + | Inhaled Oxygen | - | - | | | Concentration | | | | + + + + + | Weight | 103.4 kg (228 lb) | 06/23/2013 1:17 PM | | | | | PST | | + + + + + | Height | 172.7 cm (5' 8") | 06/23/2013 1:17 PM | | | | | PST | | + + + + + | Body Mass Index | 34.67 | 06/23/2013 1:17 PM | | | | | PST | | + + + + + documented in this encounter Patient Instructions Patient Instructions Adrien Smith MD - 06/23/2013 3:10 PM PSTThis is a copy of the ft of my suggestions to your doctors. Ms. Meehan meets the ACR criteria for fibromyalgia. As part of the initial evaluation of a patient with fibromyalgia, the [facility] Fibromyalgia clinic suggests laboratory screening to i nclude: chemistry panel, Vitamin D, vitamin B6, B12, TSH, CBC with Differential, Sedimentat ion Rate (ESR), Insulin Like Growth Factor-1 (IGF-1). We think it is worth checking these i f they have not been checked recently. The mainstay of treatment for fibromyalgia is psychological counseling, appropriate medicat ion management and activation, with a focus on aerobic exercises. The only FDA approved medi cations are pregabalin, duloxetine, and milnacipran. There is evidence to support tricyclic antidepressants, venlafaxine, gabapentin and tramadol as well. There is no evidence to support ongoing opioid therapy in the management of fibromyalgia (C prsica SF et al. Karen Rheum Dis 2008;67:536 541). Recent data suggests that fibromyalgia patients may have reduced JAVA SOFTWARE ARCHITECT opioid receptors (Reji is RE, et al. Decreased central mu-opioid receptor availability in fibromyalgia. J Neurosci . 27(37):51452-9, 2006Feb 24.) and there are no controlled trials of opioids stronger than Tramadol in fibromyalgia. Emerging evidence suggests that fibromyalgia is primarily a problem of central nervous syst em pain processing. Attention and focus may contribute to ongoing symptoms as well. Recent positive data with Yoga and Jacky Chi for fibromyalgia. Continue going to pool therapy - a prescription was provided. documented in this encounter Progress Notes Adrien Smith MD - 06/23/2013 2:40 PM PSTI saw and evaluated the patient with Fellow Buzz Cochran MD, who conducted the initial history. I reviewed the history in detail and edited his note. I was present for the examination and formulation portions of the enco unter. I agree with the findings and the plan of care as documented in our notes. ADRIEN SMITH MD Grease Monkey, [facility] Actimize Architect, Pain Medicine Professor, Anesthesiology & Perioperative Medicine Brandon Phipps Md - 06/23/2013 2:21 PM PST [facility] Center Return Visit with Dr. Adrien Smith 06/23/2013 Belinda Meehan; ; : 1960 Chief Complaint Patient presents with Return Patient Head pain Back pain Hip pain Leg Pain History of Present Illness: Ms. Meehan was last seen by Rosi Antonio on 04/05/2013. From that visit "Belinda and I reviewed her history of chronic pain due to degenerative disc disease and unc onvertebral arthrosis of multiple levels of the cervical spine; post-laminectomy pain, histo ry of bilateral knee arthroplasty due to DJD and fibromyalgia. She would like to avoid furth er back surgery. Her prior primary care physician moved away and she would like to be re-alejandro luated for available treatment options for her low back pain. We discussed the following treatment plan: 1. Diagnostic evaluation: I recommend she have a x-ray of her right hip. 2. Consult: I will refer her to pain psychology, Dr. Andres Ogden as she has worked with him [facility]. This visit can be in tandem with her next pain clinic visit with Dr. Adrien Smith. 3. Medication suggestions: She should continue her current opioid therapy: Oxycontin 20 mg twice a day Oxycodone 5 mg, up to 5 doses a day as needed for breakthrough pain We discussed the long-term goal of continuing to decrease her opioid therapy, in order to i mprove opioid induced hyperalgesia and other side effects from long-term opioid therapy. I recommend she increase her gabapentin dose to 800 mg three times a day for three weeks. I f this is not changing her functioning level, improving her lower leg and back pain the I re commend she change to pregabalin. I suggest starting pregabalin (Lyrica) at 75 mg at night, then increase to twice a day. The target dose is 150 - 600 mg/day. The dose can be adjusted upwards every 3 - 7 days. 4. Procedure suggestions: We discussed epidural steroid injections, which she has had in past before her lumbar surgeries and recently in [place]. She has short-term relief from thes e treatments. I would like her to return to see Dr. Adrien Smith to discuss these treatment options. Consult to [facility] physical therapy: A supervised physical therapy evaluation and treatment pr natanael is central to the management of leg pain, low back pain, neck pain, gait training. Thi s program will include aerobic conditioning, stretching and strengthening your core. I will place this referral today, this visit can be in tandem with pain psychology and clinic appoi ntments. Consider a trial of Spinal Cord Stimulation (SCS). I do not know if she is a candidate for this treatment option, I will have her return to the pain center to discuss her pain present ation, current treatments and other options for her pain treatment with Dr. Adrien Smith. 5. Follow-up: Return appointment for [address] Adrien Smith to discuss treatment options: either epidural steroid injections or spinal cord stimulator option." She is here today for a follow up visit. She has been treated at the [facility] for back pain with the following problem list: Patient Active Problem List Diagnosis Date Noted Post laminectomy syndrome 06/23/2013 Chronic migraine 06/23/2013 Overview Note: since childhood, strong family history, metabolic imbalances, sleep apnea, neck pain, med ication rebound IGT (impaired glucose tolerance) 05/31/2013 Falling 10/03/2009 Anal or Rectal Pain 10/05/2008 Muscle Strain hips 08/22/2008 Neck Pain 08/22/2008 Radicular Pain in Left Arm 08/22/2008 S/P Gastric Bypass Surgery November 22, 2003 07/25/2008 Fibromyalgia 07/25/2008 Overview Note: Craniocervical junction appears stenotic in cervical extension. Chronic Bilateral Shoulder Pain 07/24/2008 Overview Note: Left: Calcific tendinitis of the supraspinatus tendon. Right: Normal Coccydynia 07/24/2008 Spinal Fusion Lumbar spine 06/21/2008 Overview Note: Surgery 05/15/08 Dr Ricky Garnett [place] JEY karlos to get operative reports Osteopenia 08/24/2007 LBP (Low Back Pain) 03/31/2007 Encounter for Long-Term (Current) Use of Opioids 01/11/2007 Hypothyroidism 11/11/2006 Major Depressive Disorder, Recurrent Episode, Moderate 07/31/2006 Adjustment Disorder with Anxiety 07/31/2006 Iron Deficiency 03/09/2006 Metabolic syndrome X 250.80 Essential hypertension 401.9 Asthma 493.9 Impaired glucose tolerance 790.2 Fibromyalgia syndrome 729.1 Overview Note: <PROVIDER>DAVIDE LIZARRAGA Ms. Meehan completed the Brief Pain Inventory and a pain drawing which I reviewed. VALUE STREAM COACH Brief Pain Inventory: (ten= worst possible pain or complete interference) Right Now: 9 (06/23/13 1317) Least in 24 hours: 7 (06/23/13 1317) Worst in 24 hours: 10 (06/23/131316) Average: 8 (06/23/131316) % Relief (med/treat): 0 (06/23/131316) General Activity: 9 (06/23/131316) Mood: 8 (06/23/131316) Walking Ability: 7 (06/23/131316) Normal Work: 10 (06/23/131316) Relations with Others: 9 (06/23/131316) Enjoyment of Life: 8 (06/23/131316) Sexual Activity: 10 (06/23/131316) Sleep: 10 (06/23/131316) Interval treatment since her last visit includes Psychological Treatment She finds this to be helpful. The pain is located at multiple sites, lower back, right worse than left, legs, neck and sh oulder and she has constant daily migraine headaches. She has pain down her right leg, on th e inside of the leg mid calf. Some pain down her left leg, on the inside of the thigh as wel l. Both shoulder and both arms, on the left she has had surgical fixation. Most of the pain is in the right thumb. She thinks that the low back pain and legs is the most bothersome. She had three lumbar surgeries She describes her pain as constant. She feels the pain is staying the same. The pain is made better by warm, sunshine pool, medication, meditation. The pain is made worse by sitting too long, standing too long. Ambulates with crutches. She has not had diagnostics or procedures. Her main exercise is walking around the store, pushing a cart. Pool therapy is beneficial, did last a few months ago. She reports no other change in past medical history, past surgical history, family history, or social history since last visit. Past Medical History Diagnosis Date Chronic abdominal pain on Oxycodone, NSAIDs, ASA RUQ u/s at OSH reportedly nl panc, bile ducts, liver; ct abd/pel normal, Colorectal polyps Internal hemorrhoid Benign tumor of colon 2006 endoscopy Vertebral fracture T7,8,9 Xray T spine 2003 Optic nerve hemorrhage left eye Sleep apnea HTN (hypertension) Pneumonia Abdominal pain Hx of gastric bypass Fibromyalgia 07/25/2008 Craniocervical junction appears stenotic in cervical extension. Other general symptoms Reduced vision Headache Kidney stone Spondylosis with myelopathy, lumbar region 07/02/2006 Radiculitis, lumbosacral 03/03/2008 Major depressive disorder, recurrent episode, moderate 07/31/2006 Hypothyroidism 11/11/2006 Asthma 493.9 COPD (chronic obstructive pulmonary disease) RA (rheumatoid arthritis) IBS (irritable bowel syndrome) PUD (peptic ulcer disease) Scoliosis CVA (cerebral vascular accident) Past Surgical History Procedure Laterality Date Salpingo-oophorectomy Colonoscopy 03/2006 Tonsillectomy Pr d&c after delivery Pr inject trigger point, 1 or 2 Knee replacement 02/2007 Left knee Knee replacement 08/2007 right knee Lumbar fusion 05/2008, ' & ' [id number] with bone spur removals Appendectomy Cholecystectomy section Hysterectomy Gastric bypass Mayra Padgett wt 278 01/18 Paniculectomy Elbow surgery Family History Problem Relation Cancer Mother Heart Disease Father Additional Family History Father Migraine Additional Family History Mother Migraine Arthritis Mother Arthritis Father Arthritis Sister Arthritis Brother Arthritis Maternal Grandmother Arthritis Maternal Grandfather Arthritis Paternal Grandmother Arthritis Paternal Grandfather Allergies Mother Allergies Sister Allergies Maternal Grandmother Allergies Maternal Grandfather Allergies Paternal Grandmother Allergies Paternal Grandfather Asthma Maternal Grandfather Heart Disease Mother Heart Disease Maternal Grandmother Heart Disease Maternal Grandfather Heart Disease Paternal Grandmother Heart Disease Paternal Grandfather Thyroid Mother Thyroid Maternal Grandmother Stroke Maternal Grandfather Stroke Paternal Grandmother Stroke Paternal Grandfather History Substance Use Topics Smoking status: Current Every Day Smoker -- 0.50 packs/day for 35 years Types: Cigarettes Smokeless tobacco: Not on file Comment: one pack in five days Alcohol Use: No Current Medication List Name Sig BETAXOLOL 0.25 % EYE DROPS,SUSPENSION 1-2 drops two times daily. CALCIUM 600 WITH VITAMIN D OR 1000 mg tab 4 x daily CHOLECALCIFEROL (VITAMIN D3) 1,000 UNIT TABLET Take 4,000 Units by mouth once daily. CYANOCOBALAMIN (VIT B-12) 1,000 MCG/ML INJECTION SYRINGE 1 inj q month DULOXETINE 30 MG CAPSULE,DELAYED RELEASE Take 30 mg by mouth once daily. FUROSEMIDE 80 MG TABLET Take 80 mg by mouth two times daily. GABAPENTIN 300 MG TABLET Take 900 mg by mouth three times daily. LEVOTHYROXINE 50 MCG TABLET Take 75 mcg by mouth once daily. METHOCARBAMOL 750 MG TABLET Take 1-2 Tabs by mouth three times daily. METOPROLOL TARTRATE 50 MG TABLET Take 50 mg by mouth two times daily. MULTIVITAMIN TABLET 1 tab by mouth twice daily OMEPRAZOLE 20 MG CAPSULE,DELAYED RELEASE Take 20 mg by mouth two times daily. OXYCODONE ER 20 MG TABLET,EXTENDED RELEASE,12 HR Take 20 mg by mouth every twelve hours. OXYCODONE 5 MG TABLET Take 5 mg by mouth every four hours as needed. PHENTERMINE 37.5 MG TABLET Take 18.75 mg by mouth once daily in the morning. Administer bef ore breakfast. POTASSIUM CHLORIDE ER 20 MEQ TABLET,EXTENDED RELEASE(PART/CRYST) take 3 tablet (20meq) by o ral route twice daily with food PROMETHAZINE 25 MG TABLET 1 tab by mouth as needed ROPINIROLE 0.5 MG TABLET Take 0.5 mg by mouth once daily in the evening. SUCRALFATE 1 GRAM TABLET Take 1 Tab by mouth before meals. TIZANIDINE 4 MG TABLET Take 2-4 mg by mouth three times daily as needed. Max: 36 mg / day. TORSEMIDE 5 MG TABLET Take 5 mg by mouth once daily. TRAVOPROST 0.004 % EYE DROPS 1 drop once daily in the evening. Allergies Allergen Reactions Levaquin (Levofloxacin) Hives and Itching Amitriptyline Grand mal seizures Cipro (Ciprofloxacin) Clarithromycin Hives Mainly in the legs Clindamycin Codeine Pjswuqd-Dsbwjkkfnz-Cri-Caff Balance problems Fioricet W/Codeine (Ewfnliigyw-Dfppihgbbd-Wdc-Cod) Keflex (Cephalexin) Morphine IM ( only in [facility]) made gut pain worse 08/27/06: Trial of oral MSIR caused leg swelling Penicillins Sulfa (Sulfonamide Antibiotics) Tramadol Ms. Meehan reports no side effects. The Review of Systems provided by Ms. Meehan and documented by the [facility] was reviewed. Austyn tional comments: 1. BONES, JOINTS AND MUSCLES atrophy, joint pain, muscle pain, stiffness and swelling 2. GASTROINTESTINAL SYSTEM abdominal pain 3. GENITOURINARY SYSTEM negative 4. NERVOUS SYSTEM numbness, weakness and headache 5. PSYCHIATRIC HISTORY sleep disturbance, decreased interest in previously enjoyable activi ties, decreased energy and decreased or increased appetite PE: BP 137/59 | Pulse 86 | RR 15 | Ht 1.727 m (5' 8") | Wt 103.42 kg (228 lb) | SpO2 93% | BMI 34.68 kg/(m^2) Appears healthy. Alert; in no acute distress. Pleasant. Oriented , in teractive. Ambulates with restrictions. Pain with palpation over the lumbar spine. Pain wit h rotation/extension. Assessment: 729.1 Fibromyalgia syndrome 729.1 724.2 LBP (low back pain) 719.41 Chronic Bilateral Shoulder Pain 722.80 Post laminectomy syndrome 346.72 Chronic migraine Belinda Meehan is a 53 y.o. Woman with fibromyalgia and post laminectomy syndrome referre d to us for evaluation for potential SCS trial. She states that her worst pain is often hea daches. We discussed that given her multiple sites of pain including chronic migraine, she is not a candidate for a SCS trial, as it would be impossible to cover all of her sites of pain. We encourage continued multidisciplinary care with physical therapy, pain psychology a nd medications. Ms. Meehan meets the ACR criteria for fibromyalgia. As part of the initial evaluation of a patient with fibromyalgia, the [facility] Fibromyalgia clinic suggests laboratory screening to i nclude: vitamin B6, B12, Sedimentation Rate (ESR), Insulin Like Growth Factor-1 (IGF-1). W e think it is worth checking these if they have not been checked recently, other labs have demetrius roman checked, we reviewed them today. The mainstay of treatment for fibromyalgia is psychological counseling, appropriate medicat ion management and activation, with a focus on aerobic exercises. The only FDA approved medi cations are pregabalin, duloxetine, and milnacipran. There is evidence to support tricyclic antidepressants, venlafaxine, gabapentin and tramadol as well. There is no evidence to suppo rt ongoing opioid therapy in the management of fibromyalgia (Vladimir SF et al. Karen Rheum D is 2008;67:536 541). Recent data suggests that fibromyalgia patients may have reduced JAVA SOFTWARE ARCHITECT opioid receptors (Xavi RE, et al. Decreased central mu-opioid receptor availability in fib romyalgia. J Neurosci. 27(37):38691-6, 2006Feb 24.) and there are no controlled trials of opioids stronger than Tramadol in fibromyalgia. Emerging evidence suggests that fibromyalgia is primarily a problem of central nervous syst em pain processing. Attention and focus may contribute to ongoing symptoms as well. Recent positive data with Yoga and Jacky Chi for fibromyalgia. Plan: 2 Schedule Physical Therapy. External order placed, pool therapy modality. 3. Suggest the following medication adjustments: 3.1 Consider increasing the duloxetine to 60 mg a day, this is more likely to help with fi bromyalgia and chronic musculoskeletal pain. 3.2 Limiting daily dose of oxycodone is reasonable. 3.3 Another option would be to switch from gabapentin to pregabalin. We suggest starting p regabalin (Lyrica) at 75 mg at night, then increase to twice a day. The target dose is 150 - 600 mg/day. The dose can be adjusted upwards every 3 - 7 days. Belinda Molly Simons was provi ded written instructions, we had a detailed PARQ discussion regarding this medication and it s side effects, and she was instructed to call with any problems. 4. Follow-up PRN as needed with Rosi COCHRAN MD,PhD [facility] mMaris clark MA - 06/23/2013 1:18 PM PSTCMA History: 1. Has your pain changed from your last visit? increased 2. Do your medications cause any side effects? NO 3. Have you had physical therapy appointments since your last visit? NO 4. Have you had psychology appointments since your last visit? NO 5. Have you had any diagnostic studies since your last appointment? YES 6. Do you require any medication refills today? NO ROS:. 1. BONES, JOINTS AND MUSCLES atrophy, joint pain, muscle pain, stiffness and swelling 2. GASTROINTESTINAL SYSTEM abdominal pain 3. GENITOURINARY SYSTEM negative 4. NERVOUS SYSTEM numbness, weakness and headache 5. PSYCHIATRIC HISTORY sleep disturbance, decreased interest in previously enjoyable acti vities, decreased energy and decreased or increased appetite documented in this e ncounter Plan of Treatment Not on filedocumented as of this encounter Procedures + +--------+ + + + | Procedure Name | Priori | Date/Time | Associated Diagnosis | Comments | | | ty | | | | + +--------+ + + + | RADIOLOGY | | 01/31/2013 | | Results for this | | | | 12:00 AM | | procedure are in the | | | | PDT | | results section. | + +--------+ + + + documented in this encounter Results RADIOLOGY (01/31/2013 12:00 AM PDT) + + + | Narrative | Performed At | + + + | | | | | | + + + + + | Procedure Note | + + | Vilma Gibbons - 08/04/2013 8:00 AM PST | + + documented in this encounter Visit Diagnoses + + | Diagnosis | + + | Fibromyalgia syndrome 729.1 - Primary Mylagia and myositis, unspecified | + + | LBP (low back pain) Lumbago | + + | Chronic Bilateral Shoulder Pain Pain in joint, shoulder region | + + | Post laminectomy syndrome Postlaminectomy syndrome, unspecified region | + + | Chronic migraine Chronic migraine without aura, without mention of intractable | | migraine with status migrainosus | + + documented in this encounter
--- OUTSIDE RECORDS SUMMARY | ~2019-12-13 | XMS | Encounter Summary ---
Demographics + + + | Address | [address] | | | [place] [address] | + + + | Home Phone [...] Team Providers + +------+ + | Care Echocardiograph Tech Name | Role | Phone | + +------+ + | Pedrito Gutierrez MD | PCP | | + +------+ + Encounter Details +--------+---------+ + + + | Date | Type | Department | Care Team | Description | +--------+---------+ + + + | 09/23/ | Office | [facility] | Nathalia Arora | Spondylosis with | | 2006 | Visit | [facility] | [address] | Myelopathy, Lumbar | | | | [place] [address] [place], | Region; Herniated | | | | Mychal Kovacs Mailcode: | [place] [id number] | Lumbar | | | | [facility] [place] [facility] | | Intervertebral Disc | | | | [facility] and Healing, | | L4-5; Neck Pain; | | | | | | Fibromyalgia | | | | Floor [place], [place] | | syndrome 729.1 | | | | [address] | | | | | | [phone] | | | +--------+---------+ + + + [...] Medicare Progress Note Date: 09/23/2006 Belinda Meehan [id number]. 1960 Start of Care: 06/23/2006 Referring Provider: [...] patient has increased her walking time at [employer] to 30-40 minutes daily, no t able [...] + + +--------+ + + | [facility] | Procedures | Routin | Spondylosis [...] + + +--------+ + + | [facility] | Procedures | Routin | Spondylosis [...]
--- OUTSIDE RECORDS SUMMARY | ~2019-12-13 | XMS | Encounter Summary ---
Demographics + + + | Address | [address] | | | [place] [address] | + + + | Home Phone [...] Providers + +------+ + | Care Manager Employee Benefits Name | Role | Phone | + [...] | | | | Clinical Nutrition | [place], [place] | | | | | [address] | [address] | | | | | Loop Mailcode: [id number] | [phone] | | | | | Outpatient Clinic | | | | | | [facility] | | | | | | [place] [address] | | | | | | [phone] | | | +--------+ + + + [...] + + | [facility] | [address] | [place] [address] | | | LABORATORY | | | [...] + + + | [facility] | [address] | [place] [address] | | | LABORATORY | | | [...] + + | [facility] | [address] | [place] [address] | | | LABORATORY | | | | + + + + + documented in this encounter Visit Diagnoses Not on filedocumented in this encounter"
--- OUTSIDE RECORDS SUMMARY | ~2019-12-13 | XMS | Encounter Summary ---
Demographics + + + | Address | [address] | | | [place] [address] | + + + | Home Phone [...] Team Providers + +------+ + | Care Basket Assembler Name | Role | Phone | + +------+ + PCP | Unavailable | + +------+ + Encounter Details +--------+ + + + + | Date | Type | Department | Care Team | Description | +--------+ + + + + | 05/30/ | Results | Kraig Turner | Beto Meeks MD | | | 2003 | Only | [facility] | [address] | | | | | [facility] | [place], [place] | | | | | [address] | [address] | | | | | [address] | [phone] | | | | | Physician's | | | | | | Pavilion, [facility] floor | | | | | | [place], [place] | | | | | | [address] | | | | | | [phone] | | | +--------+ + + + [...] | BASIC METABOLIC SET | Routin | 05/30/2004 | | Results for this | | (NA, K, CL, TCO2, | e | 2:46 PM | | procedure are in the | | BUN, CR, GLU, CA) | | PST | | results section. | + +--------+ + + + | PTH, SERUM | Routin | 05/30/2004 | | Results for this | | | e | 2:46 PM | | procedure are in the | | | | PST | | results section. | + +--------+ + + + | FSH, SERUM | Routin | 05/30/2004 | | Results for this | | | e | 2:46 PM | | procedure are in the | | | | PST | | results section. | + +--------+ + + + documented in this encounter Results FSH, SERUM (05/30/2004 2:46 PM PST) + + + + + + | Component | Value | Ref Range | Performed | Pathologist | | | | | At | Signature | + + + + + + | FSH,SERUM | 35Comment: | mIU/mL | | | | | FSH Normals: | | | | | | Males: | | | | | | <18 | | | | | | Females | | | | | | Follicular: 2-12 | | | | | | | | | | | | Mid-cycle: 3-33 | | | | | | Luteal: | | | | | | 2-12 | | | | | | Post.belle: >20 | | | | | | Test performed by | | | | | | [facility] | | | | | | Regional Laboratory. | | | | + + + + + + + + | Specimen | + + | | + + + + + + + | Performing | Address | City/State/Zipcode | Phone Number | | Organization | | | | + + + + + | [facility] | [address] | [place] [address] | | | LABORATORY | | | | + + + + + PTH, SERUM (05/30/2004 2:46 PM PST) + + + + + + | Component | Value | Ref Range | Performed | Pathologist | | | | | At | Signature | + + + + + + | PTH, SERUM | 59.0Comment: Test | 10.0 - 65.0 | | | | | performed by Colin | pg/mL | | | | | [facility] | | | | | | Laboratory. | | | | + + + + + + + + | Specimen | + + | | + + + + + + + | Performing | Address | City/State/Zipcode | Phone Number | | Organization | | | | + + + + + | [facility] | [address] | [place] [address] | | | LABORATORY | | | | + + + + + BASIC METABOLIC SET (05/30/2004 2:46 PM PST) + +-------+ + + + | Component | Value | Ref Range | Performed | Pathologist | | | | | At | Signature | + +-------+ + + + | GLUCOSE, | 94 | 65 - 110 mg/dL | [facility] [...] +-------+ + + + | SODIUM, | 142 | 136 - 145 | [facility] | | | PLASMA | | mmol/L | DEPARTMENT | | | (LAB) | | | OF | | | | | | PATHOLOGY | | + +-------+ + + + | POTASSIUM, | 3.8 | 3.5 - 5.1 | [facility] | | | PLASMA | | mmol/L | DEPARTMENT | | | (LAB) | | | OF | | | | | | PATHOLOGY | | + +-------+ + + + | CHLORIDE, | 103 [...] +-------+ + + + | CALCIUM, | 9.9 | 8.5 - 10.5 | [facility] | [...] | + + + + + | [facility] | [address] | [place] [address] | | | PATHOLOGY | [address] | | | + + + + + | [facility] DEPARTMENT OF | [address] | [place] [address] | | | PATHOLOGY | [address] | | | + + + + + documented in this encounter Visit Diagnoses Not on filedocumented in this encounter"
--- OUTSIDE RECORDS SUMMARY | ~2019-12-13 | XMS | Encounter Summary ---
Demographics + + + | Address | [address] | | | [place] [address] | + + + | Home Phone [...] Team Providers + +------+ + | Care Housekeeper Home Name | Role | Phone | + [...] [address] | | | | | [facility] | [place], [place] | | | | | and Healing, | [address] | | | | | [facility], [facility] | [phone] | | | | | Floor [place], [place] | | | | | | [address] | | | | | | [phone] | | | +--------+ + + + [...]
--- OUTSIDE RECORDS SUMMARY | ~2019-12-13 | XMS | Encounter Summary ---
Demographics + + + | Address | [address] | | | [place] [address] | + + + | Home Phone [...] Team Providers + +------+ + | Care Reporter Anchor Name | Role | Phone | + [...]
--- OUTSIDE RECORDS SUMMARY | ~2019-12-13 | XMS | Encounter Summary ---
Demographics + + + | Address | [address] | | | [place] [address] | + + + | Home Phone [...] Team Providers + +------+ + | Care Phone Triage Specialist Name | Role | Phone | [...] as of this encounter Progress Notes Interface, Syrup Maker In - 01/12/2005 6:32 AM PDT Referred [...] she was going to go to the [employer] food store and try to find another [...] two months. Svetlana Maki R.D. SR/x35 P [id number] signed by Interface, Syrup Maker In at 01/12/2005 6:32 AM [facility] umented in this encounter Plan of Treatment Not on filedocumented as of this encounter Visit Diagnoses Not on filedocumented in this encounter"
--- OUTSIDE RECORDS SUMMARY | ~2019-12-13 | XMS | Encounter Summary ---
Demographics + + + | Address | [address] | | | [place] [address] | + + + | Home Phone [...] Team Providers + +------+ + | Care Molding Plasterer Name | Role | Phone | + [...] y | Vertigo | Emmy-Jefft | EMD [address] | | | Required | | Procedures | i, | [address] | | | | | 11/19 MODA | [place] | [address] | | | | | PENDING | , [address] | [place], | | | | | | [address] | [place] [address] | | | | | | [place], | Phone: | | | | | | [place] | [phone] | | | | | | [address] | Fax: | | | | | | Phone: | [phone] | | | | | | [phone] | | | | | | | Fax: | | | | | | | [phone] | | +--------+ + + + + [...] + + | 11/18/ | Telephone | [facility] | Alanis, | Vertigo (Recurrent) | | 2017 | | [facility] [address] | MD [place]rona | | | | | [place], | [address] | | | | | [place] [address] | [place] [address] | | | | | [phone] | [phone] | | | | | | | [...] like a c all back to advise, [phone]. 11 :59 AM PDTdocumented in this encounter [...] | | | | | [place] [address] | | | | | | [phone] | | | | | | | | +--------+---------+ + + + | 12/20/ | Office | Otolaryngology | Ulysses Genao MD | | | 2019 | Visit | | [address] | | | | | | [address] [place] | | | | | | [place] [address] | | | | | | [phone] | | | | | | | | +--------+---------+ + + + | 02/15/ | Office | Internal Medicine | Alanis, | | | 2019 | Visit | | MD [place]rona | | | | | | [address] [place] | | | | | | [place] [address] | | | | | | [phone] | | | | | | | | +--------+---------+ + + + + + +--------+ + + | Name | Type | Priori | Associated Diagnoses | Order Schedule | | | | ty | | | + + +--------+ + + | * [facility] | Outpatient | Routin | Vertigo | [...]
--- OUTSIDE RECORDS SUMMARY | ~2019-12-13 | XMS | Encounter Summary ---
Demographics + + + | Address | [address] | | | [place] [address] | + + + | Home Phone | | + + + | Preferred Language | Unknown | + + + | Marital Status | | + + + | Nondenominational Affiliation | 1001 | + + + | Race | Unknown | + + + | Ethnic Group | Unknown | + + + Author + + + | Author | [facility] | | | and [place] | + + + | Organization | [facility] | | | [...] Providers + +------+ + | Care Site Director Name | Role | Phone | + +------+ + | Petrona Thapa | PCP | | | MD | | | + +------+ + Reason for Visit +--------+--------+ + | Reason | Onset | Comments | | | Date | | +--------+--------+ + | Other | 02/01/ | B12 shot | | | 2017 | | +--------+--------+ + Encounter Details +--------+ + + + + | Date | Type | Department | Care Team | Description | +--------+ + + + + | 02/01/ | Telephone | [facility] | Alanis, | Other (B12 shot) | | 2017 | | MEDICINE [address] | MD [place] | | | | | [place], | [address] [facility] | | | | | [place] [address] | [place] [address] | | | | | [phone] | [phone] | | | | | | | [...] Telephone Encounter - Maggie Montoya LPN - 02/03/2018 1:37 PM PDTPatient notified of re commendations, patient will come in next month elephone Encounter - Petrona Thapa MD - 02/03/2018 12 :40 PM PDTShould continue with monthly b12 shots. elephone Encounter - Adriana Cantor - 8 2:17 PM PDTPatient called wanting to speak with the nurse. Patient stated she used to co me in for B12 shots and has not had one for a while so was wanting to know if she should com e in for one or if an order needs to be placed. Please call patient to advise, . documented in this enco unter Plan of Treatment +--------+---------+ + + + [...] | | | | | [place] [address] | | | | | | [phone] | | | | | | | | +--------+---------+ + + + | 12/20/ | Office | Otolaryngology | Ulysses Genao MD | | | 2019 | Visit | | [address] | | | | | | [address] [place] | | | | | | [place] [address] | | | | | | [phone] | | | | | | | | +--------+---------+ + + + | 02/15/ | Office | Internal Medicine | Alanis, | | | 2020 | Visit | | MD Petrona | | | | | | [address] | | | | | | [place] [address] | | | | | | [phone] | | | | | | | | +--------+---------+ + + + documented as of this encounter Visit Diagnoses Not on filedocumented in this encounter"
--- OUTSIDE RECORDS SUMMARY | ~2019-12-13 | XMS | Encounter Summary ---
Demographics + + + | Address | [address] | | | [place] [address] | + + + | Home Phone | | + + + | Preferred Language | Unknown | + + + | Marital Status | | + + + | Taoist Affiliation | 1001 | + + + | Race | Unknown | + + + | Ethnic Group | Unknown | + + + Author + + + | Author | [facility] | | | and [place] | + + + | Organization | [facility] | | [...] Providers + +------+ + | Care Office Nurse Name | Role | Phone | [...] | | | | | pain without MD [address] | [place] | | | | | sciatica | [address] | [address] Phone: | | | | | | [place], | [phone] | | | | | | [place] | Fax: | | | | | | [address] | [phone] | | | | | | Phone: | | | | | | | [phone] | | | | | | | Fax: | | | | | | | [phone] | | +--------+ + + + + + Reason for Visit + +--------+ + | Reason | Onset | Comments | | | Date | | + +--------+ + | Medication Orders | 07/15/ | | | | 2018 | | + +--------+ + Encounter Details +--------+ + + + + | Date | Type | Department | Care Team | Description | +--------+ + + + + | 07/15/ | Telephone | [facility] | Alanis, | Medication Orders | | 2018 | | MEDICINE [address] | MD John | | | | | [place], | [address] | | | | | [place] [address] | [place] [address] | | | | | [phone] | [phone] | | | | | | | [...] Addendum Note - John Thapa MD - 07/19/2018 9:15 PM PST Addended by: JOHN HOPKINS on: 07/19/2018 21:15 Modules accepted: Orders elepho lory Encounter - Maggie Montoya LPN - 07/16/2018 1:33 PM PSTPatient notified of refill. Also patient is c/o increase pain in back and would like to be referred again to physiatry Dr. Cowart [facility]. Please advise elep martell Encounter - John Thapa MD - 07/16/2018 11:51 AM PSTRefilled.Veto lentz signed by John Thapa MD at 07/16/2018 11:51 AM PSTTelephone Encounter - Ayla Quezada - 07/16/2018 11:33 AM PSTPatient called in to check the status of her medication refill. Please advise [phone] signed by Ayla Quezada at 07/16/2018 11:34 AM PSTTelephone Encounter - Adriana Cantor - 07/15/2018 2:37 PM PSTPa kenisha called wanting to speak with the nurse. Patient stated that she is going to have to h ave Dr. Booth start prescribing a medication that her surgeon has been prescribing as her surgeon has now released her. Patient stated the prescription is loperamide 2 mg capsules a nd she takes 4 capsules in the morning and 2 capsules in the evening. Patient stated her pr escription has one more refill. Please call patient to advise, . documented in this encounter Plan of Treatment +--------+---------+ + + + | Date | Type | Specialty | Care Team | Description | +--------+---------+ + + + | 12/20/ | Office | Audiology | Elisabet Munson MS | | | 2019 | Visit | | [facility] [address] | | | | | | [facility] | | | | | | [place] [address] | | | | | | [phone] | | | | | | | | +--------+---------+ + + + | 12/20/ | Office | Otolaryngology | Ulysses Genao MD | | | 2019 | Visit | | [address] | | | | | | [address] [place] | | | | | | [place] [address] | | | | | | [phone] | | | | | | | | +--------+---------+ + + + | 02/15/ | Office | Internal Medicine | Alanis, | | | 2019 | Visit | | MD John | | | | | | [address] [place] | | | | | | [place] [address] | | | | | | [phone] | | | | | | | [...]
--- OUTSIDE RECORDS SUMMARY | ~2019-12-13 | XMS | Encounter Summary ---
Demographics + + + | Address | [address] | | | [place] [address] | + + + | Home Phone [...] Providers + +------+ + | Care Sausage Maker Name | Role | Phone | [...] + + | 10/18/ | Refill | Kraig Turner | Beto Meeks MD | Refill Request | | 2009 | | [facility] | [address] | | | | | [facility] | [place], [place] | | | | | [address] | [address] | | | | | [address] | [phone] | | | | | Phys[facility]ilion | | | | | | Physician's | | | | | | Pavilion [place], | | | | | | [place] [address] | | | | | | [phone] | | | +--------+--------+ + + + [...]
--- OUTSIDE RECORDS SUMMARY | ~2019-12-13 | XMS | Encounter Summary ---
Demographics + + + | Address | [address] | | | [place] [address] | + + + | Home Phone [...] Team Providers + +------+ + | Care Event Management Consultant Name | Role | Phone | [...] [address] | | | | | | [place], [place] | | | | | | [address] | | | | | | [phone] | | | +--------+ + + + [...]
--- OUTSIDE RECORDS SUMMARY | ~2019-12-13 | XMS | Encounter Summary ---
Demographics + + + | Address | [address] | | | [place] [address] | + + + | Home Phone [...] Team Providers + +------+ + | Care Stripper Latex Name | Role | Phone | + +------+ + | Petrona Thapa | PCP | | | MD | | | + +------+ + Encounter Details +--------+ + + + + | Date | Type | Department | Care Team | Description | +--------+ + + + + | 07/09/ | Abstract | [facility] | Alanis, | | | 2018 | | MEDICINE [address] | MD [place] | | | | | [place], | [address] [facility] | | | | | [place] [address] | [place] [address] | | | | | [phone] | [phone] | | | | | | | [...] | | | | | | [place] [address] | | | | | | [phone] | | | | | | | | +--------+---------+ + + + | 12/20/ | Office | Otolaryngology | Ulysses Genao MD | | | 2019 | Visit | | [address] | | | | | | [address] [place] | | | | | | [place] [address] | | | | | | [phone] | | | | | | | | +--------+---------+ + + + | 02/15/ | Office | Internal Medicine | Alanis, | | | 2019 | Visit | | MD Petrona | | | | | | [address] [facility] [place] | | | | | | [place] [address] | | | | | | [phone] | | | | | | | | +--------+---------+ + + + documented as of this encounter Procedures + +--------+ + + + | Procedure Name | Priori | Date/Time | Associated Diagnosis | Comments | | | ty | | | | + +--------+ + + + | LEANDRO EXTERNAL IMAGE | Routin | 03/01/2018 | | Results for this | | | e | | | procedure are in the | | | | | | results section. | + +--------+ + + + documented in this encounter Results LEANDRO External Image (03/01/2018) + + + + + + | Component | Value | Ref Range | Performed | Pathologist | | | | | At | Signature | + + + + + + | EXT | 1-Negative | | | | | MAMMOGRAPHY | | | | | + + + + + + documented in this encounter Visit Diagnoses Not on filedocumented in this encounter"
--- OUTSIDE RECORDS SUMMARY | ~2019-12-13 | XMS | Encounter Summary ---
Demographics + + + | Address | [address] | | | [place] [address] | + + + | Home Phone [...] Team Providers + +------+ + | Care Glue Bone Crusher Name | Role | Phone | + +------+ + | Pedrito Guteirrez MD | PCP | | + +------+ + Encounter Details +--------+ + + + + | Date | Type | Department | Care Team | Description | +--------+ + + + + | 02/21/ | Hospital | Cardiac | Sjh, Car Ecg Tech | | | 2008 | Encounter | Non-Invasive Testing | [address] | | | | | at [place] | [facility] | | | | | [address] | [place] [address] | | | | | [address] | | | | | | [place], 2nd floor | | | | | | [place], [place] | | | | | | [address] | | | | | | [phone] | | | +--------+ + + + [...]
--- OUTSIDE RECORDS SUMMARY | ~2019-12-13 | XMS | Encounter Summary ---
Demographics + + + | Address | [address] | | | [place] [address] | + + + | Home Phone [...] Providers + +------+ + | Care Supervisor Concrete Block Plant Name | Role | Phone | + +------+ + | Petrona Thapa | PCP | | | MD | | | + +------+ + Reason for Visit + +--------+ + | Reason | Onset | Comments | | | Date | | + +--------+ + | Medication Refill | 09/06/ | | | | 2019 | | + +--------+ + Encounter Details +--------+--------+ + + + | Date | Type | Department | Care Team | Description | +--------+--------+ + + + | 09/06/ | Refill | [facility] [place] [facility] | Alanis, | Medication Refill | | 2019 | | MEDICINE [address] | MD [place] | | | | | [place], | [address] | | | | | [place] [address] | [place] [address] | | | | | [phone] | [phone] | | | | | | | [...] | | | | | [place] [address] | | | | | | [phone] | | | | | | | | +--------+---------+ + + + | 12/20/ | Office | Otolaryngology | Ulysses Genao MD | | | 2019 | Visit | | [address] | | | | | | [place] | | | | | | [place] [address] | | | | | | [phone] | | | | | | | | +--------+---------+ + + + | 02/15/ | Office | Internal Medicine | Alanis, | | | 2019 | Visit | | MD Petrona | | | | | | [address] [place] | | | | | | [place] [address] | | | | | | [phone] | | | | | | | | +--------+---------+ + + + documented as of this encounter Visit Diagnoses Not on filedocumented in this encounter"
--- OUTSIDE RECORDS SUMMARY | ~2019-12-13 | XMS | Encounter Summary ---
Demographics + + + | Address | [address] | | | [place] [address] | + + + | Home Phone [...] Team Providers + +------+ + | Care Spudder Name | Role | Phone | + +------+ + PCP | Unavailable | + +------+ + Encounter Details +--------+ + + + + | Date | Type | Department | Care Team | Description | +--------+ + + + + | 01/31/ | [facility] | | Letters, Other | [...] as of this encounter Progress Notes Interface, Patient Educator In - 12/07/2005 3:08 AM [facility] [place] [address] [place] [address] or January 31, 2003 Pedrito Gutierrez M.D. [address] [place] [address] RE: BELINDA MEEHAN MR #: [id number] Dear Dr. Gutierrez: I had the pleasure of seeing Belinda Meehan again today in the [facility] for followup of a number of medical problems that include metabolic syndrome associated with impaired glucose tolerance, hypertension, abnormal body weight regulation, and obstructive sleep apnea. She also has secondary hyperparathyroidism, which had resolved spontaneously, but her last serum PTH concentration was mildly elevated again on November 01, 2002. She had an MRI of her brain performed on November 09, 2002, to evaluate increased severity of headaches. The results of that examination were normal. Her headache subsequently improved after discontinuing treatment with phentermine. She had surgery 5 days ago in [place] on her right hand and wrist, for which she is recovering well. She gets some exercise, but this is limited by pain. She continues to have problems with chronic pain and fatigue. She tries to eat a healthy diet, and is aware of restricting her food intake, but her weight has increased nonetheless. She is feeling much more ready to proceed with gastric bypass surgery, but still has a lot of apprehension about this. Nonetheless, she is scheduled for an initial appointment in the Bariatric Surgery Clinic in April 2003. Her weight was 329.4 pounds, which had actually increased 15 pounds since her last visit 3 months ago. This marked weight increase is most likely a consequence of discontinuation of the phentermine. Her blood pressure was excellent at 118/58 mmHg and her heart rate was 76 beats per minute and regular. She was alert and in no acute distress. Her mood was within normal limits. She had 2+ acanthosis nigricans, as before, she also had continued mild periorbital edema. She had an Carlton wrap on her right hand and wrist related to her recent surgery. Her cardiac exam showed a regular rate and rhythm; no murmur, S3, or S4; normal pulses throughout. Her abdominal exam showed no hepatosplenomegaly, masses, or tenderness. Her extremities showed a trace of pretibial edema. Laboratory studies from today included a complete metabolic set which showed serum glucose 146 mg/dL, mildly increased AST of 47 units/L (normal 15 to 41), ALT 54 units/L (normal 13 to 48), and otherwise normal results. Her potassium level was at the low end of normal with a level of 3.5 mmol/L, which suggest she probably needs an increase in her potassium intake. A serum TSH concentration was normal at 3.2 microunits/mL. A CBC showed normal hemoglobin concentration of 12.6 g/dL (11.4 to 15) and normal hematocrit of 36.7% (normal 33 to 44.6). A serum PTH concentration is currently pending. Her serum calcium concentration was entirely normal with a level of 9.3 mg/dL in association with a normal albumin concentration of 3.8 g/dL. In summary, she has a refractory metabolic syndrome that has responded favorably to treatment with phentermine, but her weight has now increased 15 pounds in 3 months in response to discontinuation of this medication. In light of the improvement in headaches after discontinuing this medication, it is not the best choice for her to resume treatment with phentermine. She wanted to try Tenuate Dospan to see if this would have similar or even greater efficacy than the phentermine without causing headaches. Therefore, I gave her a prescription for this medication to be taken at a dosage of 75 mg every morning. I encouraged her to proceed with the bariatric surgery, since this procedure has the greatest hope for reversing her severe progressive metabolic syndrome. She seems comfortable with this idea at this point and therefore will be proceeding with her initial evaluation in April 2003. I will plan to see her again at about the same time to help minimize her travel to [place]. In the meantime, please feel free to contact me if you have other questions, concerns, or suggestions regarding her condition. Sincerely, Issac Meeks M.D. leather drier Division of Endocrinology, Diabetes, and Clinical Nutrition, Director of Metabolic Disorders Clinic MONIQUE / SHARIF [id number] / [id number] / [id number] / Tdocumented in this encounter Plan of Treatment Not on filedocumented as of this encounter Visit Diagnoses Not on filedocumented in this encounter"
--- OUTSIDE RECORDS SUMMARY | ~2019-12-13 | XMS | Encounter Summary ---
Demographics + + + | Address | [address] | | | [place] [address] | + + + | Home Phone [...] Team Providers + +------+ + | Care Main Line Assembler Name | Role | Phone | + +------+ + PCP | Unavailable | + +------+ + Encounter Details +--------+ + + + + | Date | Type | Department | Care Team | Description | +--------+ + + + + | 01/02/ | Telephone | [facility] | Kenisha Melton, | | | 2005 | | [address] | [facility] [address] | | | | | [address] | [address] | | | | | Mailcode: [id number] | [place], [place] | | | | | [facility] | [address] | | | | | [place], [place] | [phone] | | | | | [address] | | | | | | [phone] | | | +--------+ + + + [...]
--- OUTSIDE RECORDS SUMMARY | ~2019-12-13 | XMS | Encounter Summary ---
Demographics + + + | Address | [address] | | | [place] [address] | + + + | Home Phone [...] Providers + +------+ + | Care Emergency Physician Name | Role | Phone | [...] | | | [facility] | [place], [place] | | | | | [address] | [address] | | | | | [address] | [phone] | | | | | Physician's | | | | | | Pavilion, [facility] floor | | | | | | [place], [place] | | | | | | [address] | | | | | | [phone] | | | +--------+ + + + [...] | | | | | performed at [facility] | | | | | | [facility] | | | | | | Laboratory | | | | + + + + + + + + | Specimen | + + | | + + + + + + + | Performing | Address | City/State/Zipcode | Phone Number | | Organization | | | | + + + + + | [facility] | [address] | [place] [address] | | | LABORATORY | | | [...] | + + + + + | [facility] | [address] | [place] [address] | | | LABORATORY | | | [...] [facility] | | | | | [facility] | | | | | | Laboratories. | | | | + + + + + + + + | Specimen | + + | | + + + + + + + | Performing | Address | City/State/Zipcode | Phone Number | | Organization | | | | + + + + + | [facility] | [address] | [place] [address] | | | LABORATORY | | | [...] | | | SERUM | performed by [facility] | | | | | | [facility] | | | | | | Laboratories. | | | | + + + + + + + + | Specimen | + + | | + + + + + + + | Performing | Address | City/State/Zipcode | Phone Number | | Organization | | | | + + + + + | [facility] | [address] | [place] [address] | | | LABORATORY | | | [...] + | [place] DEPARTMENT OF | [address] [facility] | [place] [address] | | | PATHOLOGY | [address] | | | + + + + + | [place] DEPARTMENT OF | [address] [facility] | [place] [address] | | | PATHOLOGY | [address] [...] + + + + | [facility] | [facility] | [place] [address] | | | PATHOLOGY | [address] | | | + + + + + | [facility] | [facility] | [place] [address] | | | PATHOLOGY | [address] | | | + + + + + documented in this encounter Visit Diagnoses Not on filedocumented in this encounter"
--- OUTSIDE RECORDS SUMMARY | ~2019-12-13 | XMS | Encounter Summary ---
Demographics + + + | Address | [address] | | | [place] [address] | + + + | Home Phone [...] Providers + +------+ + | Care Senior Java J2Ee Developer Name | Role | Phone | [...] [address] | | | | | [place], [place] | [place], [place] | | | | | [address] | [address] | | | | | [phone] | [phone] | | | | | | | [...] DEPARTMENT OF | [address] | [place] [address] | | | PATHOLOGY | [address] | | | + + + + + | [facility] DEPARTMENT OF | [address] | [place] [address] | | | PATHOLOGY | [address] [...] + + | [facility] DEPARTMENT OF | [address] | [place] [address] | | | PATHOLOGY | [address] | | | + + + + + | [facility] DEPARTMENT OF | [address] | [place] [address] | | | PATHOLOGY | [address] [...] Performed At | + + + | [id number] Estimated GFR > 60 mL/min/1.73 sq m if non- | [facility] | | [id number] Estimated GFR > 60 mL/min/1.73 sq m [...] [facility] | [address] | [place] [address] | | | PATHOLOGY | [address] | | | + + + + + | [facility] | [address] | [place] [address] | | | PATHOLOGY | [address] | | | + + + + + documented in this encounter Visit Diagnoses Not on filedocumented in this encounter"
--- OUTSIDE RECORDS SUMMARY | ~2019-12-13 | XMS | Encounter Summary ---
Demographics + + + | Address | [address] | | | [place] [address] | + + + | Home Phone [...] Team Providers + +------+ + | Care Greens Laborer Name | Role | Phone | + [...] + + + + | 10/06/ | Telephone | [facility] | Beatrice Banegase John, | Lab Results | | 2012 | | [place] [facility] [address] | [employer] [address] | | | | | Sara Kovacs | [facility] [address] | | | | | Mailcode: Center | [place], [place] | | | | | for Health and | [address] | | | | | [place] [address] | [phone] | | | | | [place], [place] | | | | | | [address] | | | | | | [phone] | | | +--------+ + + + [...]
--- OUTSIDE RECORDS SUMMARY | ~2019-12-13 | XMS | Encounter Summary ---
Demographics + + + | Address | [address] | | | [place] [address] | + + + | Home Phone [...] Team Providers + +------+ + | Care Bufferer Name | Role | Phone | + +------+ + | Pedrito Gutierrez MD | PCP | | + +------+ + Encounter Details +--------+ + + + + | Date | Type | Department | Care Team | Description | +--------+ + + + + | 11/24/ | Hospital | Cardiac | Sjh, Car Ecg Tech | | | 2007 | Encounter | Non-Invasive Testing | [address] | | | | | at [place] | [facility] | | | | | [address] | [place] [address] | | | | | [address] | | | | | | [place], 2nd floor | | | | | | [place], [place] | | | | | | [address] | | | | | | [phone] | | | +--------+ + + + [...]
--- OUTSIDE RECORDS SUMMARY | ~2019-12-13 | XMS | Encounter Summary ---
Demographics + + + | Address | [address] | | | [place] [address] | + + + | Home Phone [...] Team Providers + +------+ + | Care Rotary Shear Operator Name | Role | Phone | + +------+ + | Petrona Thapa | PCP | | | MD | | | + +------+ + Reason for Visit + +--------+ + | Reason | Onset | Comments | | | Date | | + +--------+ + | Appointment Question | 10/13/ | | | | 2019 | | + +--------+ + Encounter Details +--------+ + + + + | Date | Type | Department | Care Team | Description | +--------+ + + + + | 10/13/ | Telephone | [facility] | Alanis, | Appointment Question | 2019 | | [facility] [address] | MD Petrona | | | | | [place], | [address] [place] | | | | | [place] [address] | [place] [address] | | | | | [phone] | [phone] | | | | | | | [...] this encounter Miscellaneous Notes Telephone Encounter - Long Owen - 10/17/2019 1:22 PM PDTPatient called back stating is being seen by her necktie operator pockets and pieces today. Please advise. elephone Encounter - Alan Odell - 10/17/2019 12:27 PM PDT Called to schedule appointment with Dr. Booth and patient's spous e notified that patient went to ER. Electronically signed by Alan Odell at 09/2019 12:28 PM PDTTelephone Encounter - Maggie Montoya LPN - 10/14/2019 1:48 PM Rodriguez mccall for patient to call back to schedule appt or may do virtual if ableElectronically sig yesenia by Maggie Montoya LPN at 10/14/2019 1:48 PM PDTTelephone Encounter - Elvin Owen - 10/14/2019 10:53 AM PDTPatient is wanting to see if she can schedule a sooner appoint ment with Dr. Booth. Patient states she has a bump on the bottom of her foot and it red an d looks to be spreading to toenail and does not want it to turn into a staph infection. Katelynn hidalgo. Nicole barrera in this encounter Plan of Treatment [...] [address] | | | | | | [place] [address] | | | | | | [phone] | | | | | | | | +--------+---------+ + + + | 12/20/ | Office | Otolaryngology | Ulysses Genao MD | | 2019 | Visit | | [address] | | | | | | [address] | | | | | | [place] [address] | | | | | | [phone] | | | | | | | | +--------+---------+ + + + | 02/15/ | Office | Internal Medicine | Alanis, | | | 2019 | Visit | | MD Petrona | | | | | | [address] [place] | | | | | | [place] [address] | | | | | | [phone] | | | | | | | | +--------+---------+ + + + documented as of this encounter Visit Diagnoses Not on filedocumented in this encounter"
--- OUTSIDE RECORDS SUMMARY | ~2019-12-13 | XMS | Encounter Summary ---
Demographics + + + | Address | [address] | | | [place] [address] | + + + | Home Phone | | + + + | Preferred Language | Unknown | + + + | Marital Status | | + + + | Anglican Affiliation | 1001 | + + + | Race | Unknown | + + + | Ethnic Group | Unknown | + + + Author + + + | Author | [facility] | | | and [place] | + + + | Organization | [facility] | | [...] Team Providers + +------+ + | Care Defence Intelligence Analyst Name | Role | Phone | + +------+ + | Petrona Thapa | PCP | | | MD | | | + +------+ + Encounter Details +--------+ + + + + | Date | Type | Department | Care Team | Description | +--------+ + + + + | 09/15/ | [facility] | [facility] | Alanis, | Pain in right lower | | 2019 | Encounter | [facility] [address] [facility] | MD Petrona | leg | | | | [address] [place] | [address] [facility] | | | | | [place] | [place] [address] | | | | | [address] | [phone] | | | | | [phone] | | | +--------+ + + + [...] 6 | Inhaler | | 18 | 0 | | | hours as needed for [...] Take 1 tablet by | 120 | 0 | 05/17/20 | | | diphenoxylate-atropi | mouth 4 times daily. | tablet | | 18 | 9 | | ne (LOMOTIL) | | | | | | | 2.5-0.025 mg per | | | | | | | [...] tablet | | 18 | 9 | + + + +---------+ + + | gabapentin | Take 3 capsules by | 270 | 3 | 06/30/19 | | | (NEURONTIN) 300 mg | mouth 3 times daily. | capsule | | 19 | 9 | | capsuleIndications: | | [...] daily. | capsule | | 19 | 9 | | capsuleIndications: | 4 tablets AM 2 | | | | | | Chronic diarrhea | tablets PM | | | | | + + + +---------+ + + | meclizine | take 1 tablet by | 90 | 0 | 02/25/20 | | | (ANTIVERT) 25 mg | mouth three times a | tablet | | 18 | 9 | | tablet | day if needed [...] day | tablet | | 19 | 9 | | 25 mg tablet [...] day | capsule | | 18 | 9 | | capsule | | | | | | + + + +---------+ + + | ondansetron | Take 1 tablet by | 270 | 2 | 06/25/19 | | | (ZOFRAN ODT) 4 mg | mouth every 8 hours | tablet | | 19 | 9 | | disintegrating | as needed for | | | | | | tabletIndications: | Nausea. | | | | | | Nausea | | | | | | + + + +---------+ + + | potassium chloride | take 3 tablets by | 450 | 1 | 05/04/20 | | | (SHAYNA-FRANCIS M20) 20 | mouth every morning | tablet | | 18 | 9 | | mEq ER tablet | and 2 every evening | | | | | | | with food | | | | | + + + +---------+ + + | sucralfate | take 1 tablet by | 120 | 1 | 09/08/19 | | | (CARAFATE) 1 g | mouth four times a | tablet | | 19 | 0 | | tablet | day if needed | | | | | + + + +---------+ + + | SUMAtriptan | Take 1 tab by mouth | 9 | 11 | 08/27/19 | | | (IMITREX) 25 mg | on on-set of | tablet | | 19 | 9 | | tabletIndications: | Migraine, may repeat [...] hours | tablet | | 18 | 9 | | tablet | for MIGRAINE | | | | | | | PREVENTION | | | | | + + + +---------+ + + | torsemide | take 1 tablet by | 25 | 5 | 08/17/19 | | | (DEMADEX) 5 mg | mouth 5 TIMES A WEEK | tablet | | 19 | 9 | | tablet | | | | | | + + + +---------+ + + | travoprost | 1 drop nightly. | | 0 | | | | (KENYONFaiza Ruiz) 0.004% | | | | | 9 | | ophthalmic solution | | | | | | + + + +---------+ + + | UNABLE TO | Gloves | 400 | 11 | 05/05/20 | | | FINDIndications: | Use as directed | each | | 18 | 9 | | Mixed incontinence | | | [...] 3 months. | | | 18 | 9 | | Pressure injury of | | [...] | 2019 | Visit | | [facility] [address] | | | | | | [address] [place] | | | | | | [place] [address] | | | | | | [phone] | | | | | | | | +--------+---------+ + + + | 12/20/ | Office | Otolaryngology | Ulysses Genao MD | | | 2020 | Visit | | [address] | | | | | | [address] | | | | | | [place] [address] | | | | | | [phone] | | | | | | | | +--------+---------+ + + + | 02/15/ | Office | Internal Medicine | EmmyAlberto, | | | 2019 | Visit | | MD Petrona | | | | | | [address] [place] | | | | | | [place] [address] | | | | | | [phone] | | | | | | | | +--------+---------+ + + + documented as of this encounter Procedures + +--------+ + + + | Procedure Name | Priori | Date/Time | Associated Diagnosis | Comments | | | ty | | | | + +--------+ + + + | XR TIBIA FIBULA | Routin | 09/15/2018 | Pain in right | Results for this | | RIGHT 2 VW | e | 11:41 AM | lower leg | procedure are in the | | | | PDT | | results section. | + +--------+ + + + documented in this encounter Results XR Tibia Fibula Right [...] + | Tawanda, Rad Results In - 09/15/2018 12:31 PM PDT [...] + | Pain in right lower leg | + + documented in this encounter"
--- OUTSIDE RECORDS SUMMARY | ~2019-12-13 | XMS | Encounter Summary ---
Demographics + + + | Address | [address] | | | [place] [address] | + + + | Home Phone [...] Providers + +------+ + | Care Furnace Roaster Name | Role | Phone | [...] [address] | | | | | | [facility] | | | | | | [place], [facility] Floor | | | | | | [place], [place] | | | | | | [address] | | | | | | [phone] | | | +--------+ + + + [...]
--- OUTSIDE RECORDS SUMMARY | ~2019-12-13 | XMS | Encounter Summary ---
Demographics + + + | Address | [address] | | | [place] [address] | + + + | Home Phone [...] Team Providers + +------+ + | Care Consulting Practice Director Name | Role | Phone | [...] | Visit | [facility] [address] | [place] | Disc Disease; | | | | [address] | | Fibromyalgia | | | | Physician's | | | | | | Pavilion, 4th Floor | | | | | | [place], [place] | | | | | | [address] | | | | | | [phone] | | | +--------+---------+ + + + [...] the LBP is gone. Dr. Ricky smith Warren was her surgeon. She think s a [...] 300 mg) by oral route once daily oingllrjiq-omodscnvlxfco-eapxfzys (FIORICET) 50-325-40 mg Oral Tablet take 2 [...] | + + +--------+ + + | UT INJECT TRIGGER | Procedures | Routin | [...]
--- OUTSIDE RECORDS SUMMARY | ~2019-12-13 | XMS | Encounter Summary ---
Demographics + + + | Address | [address] | | | [place] [address] | + + + | Home Phone [...] Team Providers + +------+ + | Care Housing Inspector Name | Role | Phone | [...] as of this encounter Discharge Summaries Interface, Woods Rider In - 08/30/2005 2:07 AM PST [id number] GEOVANNI Barnes Admission Date: 07/24/2005 Discharge Date: [...] for an appointment. Joanna Ritchie M.D. / [id number] / [id number] / [id number] / Electronically signed by Chris Padgett 08-29-2005 03:28:23 PM documented i n this encounter Plan of Treatment Not on filedocumented as of this encounter Visit Diagnoses Not on filedocumented in this encounter"
--- OUTSIDE RECORDS SUMMARY | ~2019-12-13 | XMS | Encounter Summary ---
Demographics + + + | Address | [address] | | | [place] [address] | + + + | Home Phone [...] Team Providers + +------+ + | Care Washer Repairman Name | Role | Phone | + [...] Rd | | | | | | [place], [place] | | | | | | [address] | | | +--------+ + + + [...]
--- OUTSIDE RECORDS SUMMARY | ~2019-12-13 | XMS | Encounter Summary ---
Demographics + + + | Address | [address] | | | [place] [address] | + + + | Home Phone [...] Providers + +------+ + | Care Director Motion Picture Name | Role | Phone | + +------+ + | Sulaiman Carrera MD | PCP | | + +------+ + Encounter Details +--------+ + + + + | Date | Type | Department | Care Team | Description | +--------+ + + + + | 06/12/ | Telephone | [facility] | Chris Padgett, | | | 2008 | | [place] [address] | [address] [facility] | | | | | Bethanie Mailcode: CH4S | [address] | | | | | [facility] | [place], [place] | | | | | and Healing, | [address] | | | | | [facility] [address] 6th | [phone] | | | | | Floor [place], [place] | | | | | | [address] | | | | | | [phone] | | | +--------+ + + + [...]
--- OUTSIDE RECORDS SUMMARY | ~2019-12-13 | XMS | Encounter Summary ---
Demographics + + + | Address | [address] | | | [place] [address] | + + + | Home Phone [...] Team Providers + +------+ + | Care Tablet Making Machine Operator Name | Role | [...] [address] | | | | | [place], [place] | [place] | | | | | [address] | [address] | | | | | [phone] | [phone] | | | | | | | [...] [facility] | [address] | [place] [address] | | | PATHOLOGY | [address] | | | + + + + + | [facility] | [address] | [place] [address] | | | PATHOLOGY | [address] [...] [facility] DEPARTMENT OF | [address] | [place] [address] | | | PATHOLOGY | [address] | | | + + + + + | [place] DEPARTMENT OF | [address] | [place] [address] | | | PATHOLOGY | [address] [...] [facility] DEPARTMENT OF | [address] [facility] | [place] [address] | | | PATHOLOGY | [address] | | | + + + + + | [facility] DEPARTMENT OF | [address] [facility] | [place] [address] | | | PATHOLOGY | [address] [...] | [facility] | [address] [place] [address] | [place] [address] | | | PATHOLOGY | [address] | | | + + + + + | [facility] DEPARTMENT OF | [facility] | [place] [address] | | | PATHOLOGY | [address] | | | + + + + + documented in this encounter Visit Diagnoses Not on filedocumented in this encounter"
--- OUTSIDE RECORDS SUMMARY | ~2019-12-13 | XMS | Encounter Summary ---
Demographics + + + | Address | [address] | | | [place] [address] | + + + | Home Phone [...] Providers + +------+ + | Care Manager Human Capital Name | Role | Phone | + [...] [address] | | | | | [facility] | [place], [place] | | | | | [address] | [address] | | | | | [address] | [phone] | | | | | Physician's Pavilion | | | | | | Physician's | | | | | | Pavilion [place], | | | | | | [place] [address] | | | | | | [phone] | | | +--------+--------+ + + + [...]
--- OUTSIDE RECORDS SUMMARY | ~2019-12-13 | XMS | Encounter Summary ---
Demographics + + + | Address | [address] | | | [place] [address] | + + + | Home Phone [...] Team Providers + +------+ + | Care Sr. Manager Name | Role | Phone | + +------+ + | Crystal Gutierrez MD | PCP | | + +------+ + Reason for Visit + + + | Reason | Comments | + + + | New patient | left knee, falling | | consultation | | + + + Encounter Details +--------+---------+ + + + | Date | Type | Department | Care Team | Description | +--------+---------+ + + + | 09/23/ | Office | Orthopaedics | Ramon Ibarra, | Injury, Knee | | 2006 | Visit | [facility] | [address] | (Primary Dx); DJD | | | | for Health and | [place], [place] | (Degenerative Joint | | | | Healing [address] | [address] | Disease) of Left | | | | Ave Mailcode: | [phone] | Knee | | | | [facility] | | | | | | Health and Healing, | | | | | | [facility] | | | | | | [place], [place] | | | | | | [address] | | | | | | [phone] | | | +--------+---------+ + + + [...] + + + + | Weight | 92 kg (202 lb 13.2 | 09/23/2006 1:11 PM | | | | oz) | PDT | | + + + + + | Height | 175.3 cm (5' 9") | 09/23/2006 1:11 PM | | | | | PDT | | + + + + + | Body Mass Index | 29.95 | 09/23/2006 1:11 PM | | | | | PDT | | + + + + + documented in this encounter Progress Notes Ramon Ibarra - 09/23/2006 2:11 PM PDTFormatting of this note might be different from lesli gomez. [facility] Sports Medicine Clinic 09/23/2006 Belinda Meehan is a 46 y.o. female PCP: CRYSTAL GUTIERREZ MD Here to discuss knees adn wants to know what can be done. Left knee is worse that the rt. She falls frequently and uncertain why. She does have sig nif myelopathy and seeing pain clinic. She was told by Dr Morales that she needed a knee r eplacement. On his last visit on 08/26/06 . 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 She is doing PT as this point. With some benefit. She is concerned because she now has some poppin mahesh dlocking symptoms and wants to know if there si something that plant maintenance manager be done w ith a scope to fix her knee. N oerythema Past Medical History Diagnosis Date CHRONIC ABDOMINAL [...] Pr inject trigger point, 1 or 2 Patient Active Problem List Diagnoses Code Metabolic syndrome X 250.80 250.80 Essential hypertension 401.9 401.9 Asthma 493.9 493.9 Fibromyalgia syndrome 729.1 729.1 Muscle pain 729.1 729.1 Obstructive sleep apnea 780.57 780.57A Impaired glucose tolerance 790.2 790.2 Chronic Abdominal Pain 789.00BQ Iron Deficiency 275.0C Depression 311G Migraine Headache 346.90D Right shoulder rotator cuff strain 959.2U Spondylosis with Myelopathy, Lumbar Region 721.42 Herniated Lumbar Intervertebral Disc L4-5 722.10H Major Depressive Disorder, Recurrent Episode, Moderate 296.32 Adjustment Disorder with Anxiety 309.24 Neck Pain 723.1B 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 715.96F Opioid Dependence, Continuous 304.01B Allergies Allergen Reactions Keflex (cephalexin) Sulfa (sulfonamides) Codeine Penicillins Clindamycin Cipro (ciprofloxacin) Tramadol Morphine IM ( only in [facility]) made gut pain worse 08/27/06: Trial of oral MSIR caused leg swelling Current outpatient prescriptions : MULTI VIT-FLUORIDE OR, None Entered, Disp: , Rfl: ACTONEL 35 MG TAB, take 1 tablet (35mg) by oral route once weekly in the morning, at least 30 minutes before the first food, beverage, or medication of the day, Disp: , Rfl: FENTANYL 25 MCG/HR 72 HR TRANSDERM PATCH, apply 1 patch (25mcg/h) by transdermal route ever y 72 hours, Disp: 10, Rfl: 0 NORCO 10 MG-325 MG TAB, take 1 tablet by oral route every 4-6 hours as needed for pain NTE 3 per day, Disp: 90, Rfl: 0 LASIX 40 MG TAB, take 1 tablet (40mg) by oral route once daily, Disp: , Rfl: POTASSIUM CHLORIDE SR 20 MEQ TAB, PARTICLES/CRYSTALS, take 1 tablet (20meq) by oral route o nce daily with food, Disp: , Rfl: CYANOCOBALAMIN 1,000 MCG TAB, 1 x monthly, Disp: , Rfl: PROMETHAZINE 25 MG TAB, take 1 tablet (25mg) by oral route once daily at bedtime, Disp: , R fl: CALCIUM 600 WITH VITAMIN D OR, ( 400 unit of Vit D) 1 tab 4 x daily, Disp: , Rfl: VITAMIN C 500 MG CHEWABLE TAB, None Entered, Disp: , Rfl: TRILEPTAL 150 MG TAB, 1 1/2 tablets twice daily, Disp: 90, Rfl: 3 History Social History Marital Status: Single Spouse Name: N/A Number of Children: N/A Years of Education: N/A Occupational History Not on file. Social History Main Topics Tobacco Use: Yes -- 1.0 packs/day for 30 years one pack in five days Alcohol Use: No Drug Use: No Sexually Active: No Other Topics Concern Not on file Social History Narrative No narrative on file Family History Problem Relation Cancer Mother Heart Father Additional Family History Father Migraine Additional Family History Mother Migraine Full ROS is otherwise negative. Objective: Alert and oriented x3 No apparent distress Well developed and well nourished Skin intact with no erythema Pulses intact Sensation intact DTR 2+ bilaterally = Joint exam: Swelling and effusion pos Knee exam: the injured knee reveals antalgic gait, soft tissue tenderness over me d fauzia montoya ne, reduced range of motion, negative drawer sign, collateral ligaments intact, positive McM urray sign, negative Pierce sign, patellar tenderness, normal contralateral knee exam. Xray: I reviewed the images and findings with the patient today. Findings: mild- mod DJD Encounter Diagnoses Code Name Primary? 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 Ramon Ibarra M.D. Sports Medicine [facility] Orthopaedics and Rehabilitation [address] [place], [place] [address] [phone] documented in this encoun ter Plan of Treatment Not on filedocumented as of this encounter Procedures + +--------+ + + + | Procedure Name | Priori | Date/Time | Associated Diagnosis | Comments | | | ty | | | | + +--------+ + + + | MRI KNEE LT WO CONT | Routin | 10/05/2006 | Injury, Knee | Results for this | | | e | 9:20 AM | | procedure are in the | | | | PDT | | results section. | + +--------+ + + + | X-RAY KNEE 4 VIEWS | Routin | 09/23/2006 | Injury, Knee | Results for this | | LEFT | e | 2:48 PM | | procedure are in the | | | | PDT | | results section. | + +--------+ + + + documented in this encounter Results MRI KNEE LT WO CONT (10/05/2006 9:20 AM PDT) + + + + + + | Component | Value | Ref Range | Performed | Pathologist | | | | | At | Signature | + + + + + + | MR KNEE LT | Radiologist 1: | | | | | WO CONT | BONNIE POZO, | | | | | | M.Ada-Radiologist 2: | | | | | | MARINA DOBSON, MDSTUDY: | | | | | | MRI OF THE LEFT KNEE | | | | | | WITHOUT GADOLINIUM | | | | | | COMPARISON: | | | | | | Radiographs from | | | | | | 09/23/06. HISTORY: Knee | | | | | | pain, evaluate for | | | | | | medial meniscal tear. | | | | | | PROCEDURE:1. Coronal | | | | | | proton density fast spin | | | | | | echo.2. Coronal FSE | | | | | | mid TE with fat | | | | | | saturation..3. | | | | | | Sagittal proton | | | | | | density fast spin | | | | | | echo.4. Sagittal FSE | | | | | | mid TE with fat | | | | | | saturation.5. Axial T1 | | | | | | FSE.6. Axial FSE mid | | | | | | TE with fat | | | | | | saturation.7. Sagittal | | | | | | 3D/WATSf cartilage | | | | | | sequence. FINDINGS: | | | | | | There is blunting of the | | | | | | free margin of the body | | | | | | of the medialmeniscus | | | | | | consistent with a focal | | | | | | radial tear. There is | | | | | | slightirregular | | | | | | morphology of the free | | | | | | margin and undersurface | | | | | | of theposter horn of the | | | | | | medial meniscus | | | | | | suspicious for extension | | | | | | of thecare into the | | | | | | posterior horn. The | | | | | | anterior horn of the | | | | | | medialmeniscus is | | | | | | intact. There is mild | | | | | | articular cartilage | | | | | | thinningwith surface | | | | | | irregularity throughout | | | | | | the central aspect of | | | | | | themedial femoral | | | | | | condyle and posterior | | | | | | aspect of the medial | | | | | | tibialplateau. There | | | | | | is a small amount of | | | | | | marginal spurring within | | | | | | themedial compartment. | | | | | | There is mild increased | | | | | | intrasubstance T2 signal | | | | | | within thelateral | | | | | | meniscus at the junction | | | | | | of the posterior horn | | | | | | and body,compatible with | | | | | | myxoid degeneration. | | | | | | The lateral meniscus | | | | | | isotherwise intact. | | | | | | Articular cartilage is | | | | | | preserved throughout | | | | | | thelateral compartment. | | | | | | Articular cartilage | | | | | | along the medial and | | | | | | lateral patellar | | | | | | facetsdemonstrates | | | | | | heterogeneous | | | | | | intrasubstance signal | | | | | | with diffusethinning and | | | | | | surface irregularity. | | | | | | There is mild | | | | | | marginalspurring of the | | | | | | patella as well. There | | | | | | is no joint effusion or | | | | | | bone marrow signal | | | | | | abnormality.There is no | | | | | | popliteal cyst. The | | | | | | anterior cruciate | | | | | | ligament and posterior | | | | | | cruciate ligament | | | | | | areintact. The medial | | | | | | collateral ligament and | | | | | | lateral | | | | | | ligamentousstructures | | | | | | are normal. The | | | | | | quadriceps and patellar | | | | | | tendons | | | | | | areintact.IMPRESSION: 1. | | | | | | Radial tear of the | | | | | | body of the medial | | | | | | meniscus with | | | | | | irregularmorphology of | | | | | | the free margin of the | | | | | | posterior horn, | | | | | | suspiciousfor extension | | | | | | of the tear. 2. Small | | | | | | amount of myxoid | | | | | | degeneration at the | | | | | | junction of theposterior | | | | | | horn and body of the | | | | | | lateral meniscus. 3. | | | | | | Articular cartilage | | | | | | thinning and surface | | | | | | irregularity | | | | | | withinthemedial and | | | | | | patellofemoral | | | | | | compartments with | | | | | | marginal spurring. | | | | + + + + + + + + | Specimen | + + | | + + + +---------+ + + | Performing | Address | City/State/Zipcode | Phone Number | | Organization | | | | + +---------+ + + | [place] [facility] | | | | | RADIOLOGY | | | | + +---------+ + + KNEE 4 VIEWS LEFT (09/23/2006 2:48 PM PDT) + + + + + + | Component | Value | Ref Range | Performed | Pathologist | | | | | At | Signature | + + + + + + | KNEE 4 | Radiologist 1: BARNEY, | | | | | VIEWS LEFT | Yoni GARCIA M.D.LEFT | | | | | | KNEE, AP STANDING AND | | | | | | LATERAL FLEXION WITH | | | | | | BILATERAL MERCHANT | | | | | | ANDSALT JAQUEZ VIEWS: | | | | | | 09/23/2006 Dictated | | | | | | 09/23/2006 COMPARISON: | | | | | | Comparison knees of | | | | | | 06/2003 are not of | | | | | | comparableprojection. | | | | | | FINDINGS: There is | | | | | | very minimal medial | | | | | | compartment narrowing | | | | | | withsome mild medial | | | | | | joint narrowing. The | | | | | | lateral compartment | | | | | | andpatellofemoral joint | | | | | | spaces are well | | | | | | maintained. There is | | | | | | no jointeffusion. | | | | | | There is slight | | | | | | lateral tilt and | | | | | | sclerosis of the | | | | | | patella. IMPRESSION: | | | | | | Very early degenerative | | | | | | type change involving | | | | | | the medial compartment. 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
--- OUTSIDE RECORDS SUMMARY | ~2019-12-13 | XMS | Encounter Summary ---
Demographics + + + | Address | [address] | | | [place] [address] | + + + | Home Phone [...] Providers + +------+ + | Care Tube And Rod Straightener Name | Role | Phone | + +------+ + | Pedrito Gutierrez MD | PCP | | + +------+ + Encounter Details +--------+ + + + + | Date | Type | Department | Care Team | Description | +--------+ + + + + | 05/05/ | Office | Endocrinology, | Beto Meeks MD | | | 2005 | Visit-ECX | Diabetes and | [address] | | | | | Clinical Nutrition | [place], [place] | | | | | [address] | [address] | | | | | Loop Mailcode: OPC5 | [phone] | | | | | Outpatient Clinic | | | | | | [facility], | | | | | | [place] [address] | | | | | | [phone] | | | +--------+ + + + [...] + + + | Blood Pressure | 104/72 | 05/05/2006 3:44 PM | | | | | PST | | + + + + + | Pulse | 74 | 05/05/2006 3:44 PM | | | | | PST [...] Weight | 88.5 kg (195 lb) | 05/05/2006 3:44 PM | | | | | PST | | + + + + + | Height | - | - | | + + + + + | Body Mass Index | 35.67 | 01/22/2006 2:47 PM | | | | | PDT | | + + + + + documented in this encounter Plan of Treatment Not on filedocumented as of this encounter Visit Diagnoses Not on filedocumented in this encounter"
--- OUTSIDE RECORDS SUMMARY | ~2019-12-13 | XMS | Encounter Summary ---
Demographics + + + | Address | [address] | | | [place] [address] | + + + | Home Phone [...] Team Providers + +------+ + | Care Flight Communications Officer Name | Role | Phone | + +------+ + PCP | Unavailable | + +------+ + Encounter Details +--------+ + + + + | Date | Type | Department | Care Team | Description | +--------+ + + + + | 12/05/ | Office | [facility] SURGERY | Clinic, [...] as of this encounter Progress Notes Interface, Wet Process Miller In - 12/25/2005 2:07 AM PDT [id number] GEOVANNI Barnes [id number] Clinic Date: 12/05/2005 Clinic: General Surgery Clinic PHONE CONSULTATION Subjective: Belinda Meehan has been under our care with a history of gastric bypass and recurrent abdominal pain, nondiagnostic on multiple tests. She was requesting a prescription for oxycodone which will be sent to her home at [address] [place] [address]. Oxycodone 5 mg, 5 to 10 p.o. q.4 h. p.r.n. pain. Please note an additional note that the patient was provided with a prescription is incorrect since the patient did not come to the appropriate location, and the prescription is not locatable at this time from the Admitting Department. The patient will follow up with Dr. Chris Padgett in clinic. Melisa Thorne / SHARIF [id number] / [id number] / [id number] / [id number] Electronically signed by Kenisha Melton 12-24-2005 01:41:04 PM documented i n this encounter Plan of Treatment Not on filedocumented as of this encounter Visit Diagnoses Not on filedocumented in this encounter"
--- OUTSIDE RECORDS SUMMARY | ~2019-12-13 | XMS | Encounter Summary ---
Demographics + + + | Address | [address] | | | [place] [address] | + + + | Home Phone [...] Team Providers + +------+ + | Care Internet E Commerce Specialist Name | Role | Phone | + +------+ + | Petrona Thapa | PCP | | | MD | | | + +------+ + Reason for Visit +--------+--------+ + | Reason | Onset | Comments | | | Date | | +--------+--------+ + | Pain | 01/21/ | | | | 2018 | | +--------+--------+ + Encounter Details +--------+ + + + + | Date | Type | Department | Care Team | Description | +--------+ + + + + | 01/21/ | Telephone | [facility] | Alanis, | Pain | | 2018 | | MEDICINE [address] | MD Petrona | | | | | [place], | [address] [facility] | | | | | [place] [address] | [place] [address] | | | | | [phone] | [phone] | | | | | | | [...] Telephone Encounter - Maggie Montoya LPN - 01/21/2019 11:57 AM PDTPatient notified of co mments/recommendations. Patient understands and accepts elephone Encounter - Petrona Thapa MD - 02/2019 10:56 AM PDTI am concerned with her symptoms that just ordering a CT would not be corinne ugh for appropriate. I think she needs to be seen and given that we are one 1 hour away fro m her and will be closed in 1 hour I do not think is realistic for her to come in the office . She can go to the ER at [facility] elephone Encounter - Maggie Montoya LPN - 01/21/2019 10:09 AM PDTPatient complaining of sharp left sided abdominal pain off/on. No N/V noted, temp 98- 99. Has diarrhea but not new, concerned of a possible blockage that she had surgery for a ye ar ago. Requesting CT scan, please adviseElectronically signed by Maggie Montoya LPN at 01/21 10:11 AM PDTTelephone Encounter - Ayla Quezada - 01/21/2019 9:54 AM PDTPatient called instated she needed to talk to the nurse " it was urgent." Please advise Electronic ally signed by Ayla Quezada at 01/21/2019 9:56 AM PDTTelephone Encounter - SakshiEsperanza Malissa - 01/21/2019 8:13 AM PDTPatient called wanting to speak with the nurse stating it was "kind of urgent." She stated she is having some pain in the area where she had surgery about a year ago and it is getting worse but gave no other information. Please call patient to advise. documented i sebastian this encounter Plan of Treatment +--------+---------+ + + + | Date | Type | Specialty | Care Team | Description | +--------+---------+ + + + | 12/20/ | Office | Audiology | Elisabet Munson MS | | | 2019 | Visit | | [facility] [address] | | | | | | [facility] | | | | | | [place] [address] | | | | | | [phone] | | | | | | | | +--------+---------+ + + + | 12/20/ | Office | Otolaryngology | Ulysses Genao MD | | | 2019 | Visit | | [address] | | | | | | [place] | | | | | | [place] [address] | | | | | | [phone] | | | | | | | | +--------+---------+ + + + | 02/15/ | Office | Internal Medicine | Alanis, | | | 2019 | Visit | | MD Petrona | | | | | | [address] [place] | | | | | | [place] [address] | | | | | | [phone] | | | | | | | | +--------+---------+ + + + documented as of this encounter Visit Diagnoses Not on filedocumented in this encounter
--- OUTSIDE RECORDS SUMMARY | ~2019-12-13 | XMS | Encounter Summary ---
Demographics + + + | Address | [address] | | | [place] [address] | + + + | Home Phone [...] Team Providers + +------+ + | Care Magnetic Observer Name | Role | Phone | + [...] + | 06/02/ | Telephone | [facility] | Alanis, | Results | | 2017 | | MEDICINE [address] | MD Petrona | | | | | [place], | [address] [facility] | | | | | [place] [address] | [place] [address] | | | | | [phone] | [phone] | | | | | | | [...] her MRI done on 05/26/2018. Please advise [phone] signed by Ayla Quezada at 06/02/2018 1:52 [...] | | | | | [place] [address] | | | | | | [phone] | | | | | | | | +--------+---------+ + + + | 12/20/ | Office | Otolaryngology | Ulysses Genao MD | | | 2019 | Visit | | [address] | | | | | | [address] | | | | | | [place] [address] | | | | | | [phone] | | | | | | | | +--------+---------+ + + + | 02/15/ | Office | Internal Medicine | Alanis, | | | 2019 | Visit | | MD Petrona | | | | | | [address] [place] | | | | | | [place] [address] | | | | | | [phone] | | | | | | | | +--------+---------+ + + + documented as of this encounter Visit Diagnoses Not on filedocumented in this encounter"
--- OUTSIDE RECORDS SUMMARY | ~2019-12-13 | XMS | Encounter Summary ---
Demographics + + + | Address | [address] | | | [place] [address] | + + + | Home Phone [...] Team Providers + +------+ + | Care Baseball Inspector Name | Role | Phone | [...] pneumonia, | | | | Avjennifer Mailcode: [facility] | [address] | wants to get back on | | | | [facility] | [place], [place] | vitamins) | | | | and Healing, | [address] | | | | | [place] [address] [facility] | [phone] | | | | | Floor [place], [place] | | | | | | [address] | | | | | | [phone] | | | +--------+ + + + [...]
--- OUTSIDE RECORDS SUMMARY | ~2019-12-13 | XMS | Encounter Summary ---
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 Operator [address] | Other Specified | | 2007 | Visit | Medicine Clinic at | [facility] [address] | Pre-Operative | | | | [facility] 4th Floor [address] | [place] [address] | Examination; | | | | [address] | | Hemorrhagic Disorder | | | | Mailcode: CH4S | | due to Intrinsic | | | | [facility] | | Circulating | | | | and Healing, | | Anticoagulants | | | | Building [address] [facility] | | | | | | [place], [place] | | | | | | [address] | | | | | | [phone] | | | +--------+---------+ + + + [...] DEPARTMENT OF | [address] | [place] [address] | | | PATHOLOGY | [address] | | | + + + + + | [facility] DEPARTMENT OF | [address] | [place] [address] | | | PATHOLOGY | [address] [...] + | [facility] DEPARTMENT OF | [address] [facility] | [place] [address] | | | PATHOLOGY | [address] | | | + + + + + | [facility] DEPARTMENT OF | [address] [facility] | [place] [address] | | | PATHOLOGY | [address] [...] DEPARTMENT OF | [address] | [place] [address] | | | PATHOLOGY | [address] | | | + + + + + | [facility] DEPARTMENT OF | [address] | [place] [address] | | | PATHOLOGY | [address] [...] Performed At | + + + | [id number] Estimated GFR > 60 mL/min/1.73 sq m if non- | [facility] | | Guinean [id number] Estimated GFR > 60 mL/min/1.73 sq m if | DEPARTMENT OF | | [place] GFR is estimated using the MDRD equation [...] + + + + | [facility] | [address] [facility] | [place] [address] | | | PATHOLOGY | [address] | | | + + + + + | [facility] | [address] [place] [address] | [place] [address] | | | PATHOLOGY | [address] [...] by | | | | | | NIRAMLA GABRIEL ([id number]) on | | | | [...] + + | Ordered by an | [facility] DEPT OF | | unspecified provider. Please click on view image for the detailed | CARDIOLOGY | | interpretation from [employer] results. | | |results. | | | | | + + + + + + + + | Performing | Address | City/State/Zipcode | Phone Number | | Organization | | | | + + + + + | [facility] DEPT OF | [address] | [place], [place] | | | CARDIOLOGY | [address] | [address] | | + + + + + | [facility] DEPT OF | [address] | [place], [place] | | | CARDIOLOGY | [address] | [address] | | + + + + + documented in this encounter Visit Diagnoses + + | Diagnosis | + + | Other specified pre-operative examination | + + | Hemorrhagic disorder due to intrinsic circulating anticoagulants | + + documented in this encounter
--- OUTSIDE RECORDS SUMMARY | ~2019-12-13 | XMS | Encounter Summary ---
Demographics + + + | Address | [address] | | | [place] [address] | + + + | Home Phone [...] Providers + +------+ + | Care Poultry Debeaker Name | Role | Phone | + +------+ + | Petrona Thapa | PCP | | | MD | | | + +------+ + Reason for Visit + +--------+ + | Reason | Onset | Comments | | | Date | | + +--------+ + | IV Medication | 07/16/ | | | | 2017 | | + +--------+ + Encounter Details +--------+ + + + + | Date | Type | Department | Care Team | Description | +--------+ + + + + | 07/16/ | Telephone | [facility] | Alanis, | IV Medication | | 2017 | | MEDICINE [address] [place] | MD Petrona | | | | | [place], | [address] [facility] | | | | | [place] [address] | [place] [address] | | | | | [phone] | [phone] | | | | | | | [...] Telephone Encounter - Marlyn Rodriguez PharmD - 07/20/2017 9:32 AM PSTPatient says she doesn 't have any questions. She is only needing it to be process and submitted through her insura nce. elephone Enc nter - Marlyn Rodriguez PharmD - 07/16/2017 2:22 PM PSTTried calling patient to answer any me dication related questions. No answer, left message requesting call back at [phone]. elephone Encounter - Malissa Redd - 07/16/2017 12:19 PM PSTPatient called and would like a call back about the IV please. Patient is also asking about the orders for her Ultrasound if they have been sent to imaging. [phone] signed by Malissa Redd at 07/16/2017 12:21 PM PSTTelephone En counter - Tuan Snider - 07/16/2017 11:03 AM PSTContact/Caller: Belinda Contact Number: [phone] Provider/Nurse: Emmy Reason for Call: Belinda will like a call back from nurse to discuss IV medicaion. Please ad vise. Last Appointment: 07/16/17 Next Appointment: 08/18/17 documented in this encoun ter Plan of [...] [place] | | | | | | [place] [address] | | | | | | [phone] | | | | | | | | +--------+---------+ + + + | 12/20/ | Office | Otolaryngology | Ulysses Genao MD | | | 2019 | Visit | | [address] | | | | | | [address] | | | | | | [place] [address] | | | | | | [phone] | | | | | | | | +--------+---------+ + + + | 02/15/ | Office | Internal Medicine | Alanis, | | | 2019 | Visit | | MD Petrona | | | | | | [address] [place] | | | | | | [place] [address] | | | | | | [phone] | | | | | | | | +--------+---------+ + + + documented as of this encounter Visit Diagnoses Not on filedocumented in this encounter"
--- OUTSIDE RECORDS SUMMARY | ~2019-12-13 | XMS | Encounter Summary ---
Demographics + + + | Address | [address] | | | [place] [address] | + + + | Home Phone [...] Providers + +------+ + | Care Production Administrator Name | Role | Phone | [...] as of this encounter Progress Notes Interface, Regulatory Affairs Internship In - 11/19/2005 3:09 AM PDT [place] [facility] [address] [place] [address] or May 09, 2003 Pedrito Gutierrez M.D. [address] [place] [address] RE: BELINDA MEEHAN MR #: [id number] Dear Dr. Gutierrez: I had the pleasure [...] this testing done through your clinic in [place]. I will plan to see her again [...] regarding her condition. Sincerely, Issac Meeks M.D. sewer pipe layer helper, Division of Endocrinology, Diabetes, and Clinical Pricing Consultant, [facility] Disorders Clinic PBD / [id number] / [id number] / [id number] / Tdocumented in this encounter Plan of Treatment Not on filedocumented as of this encounter Visit Diagnoses Not on filedocumented in this encounter"
--- OUTSIDE RECORDS SUMMARY | ~2019-12-13 | XMS | Encounter Summary ---
Demographics + + + | Address | [address] | | | [place] [address] | + + + | Home Phone [...] Team Providers + +------+ + | Care Occupational Therapy Supervisor Name | Role | Phone | + +------+ + | Petrona Thapa | PCP | | | MD | | | + +------+ + Reason for Visit +--------+--------+ + | Reason | Onset | Comments | | | Date | | +--------+--------+ + | Other | 11/23/ | | | | 2018 | | +--------+--------+ + Encounter Details +--------+ + + + + | Date | Type | Department | Care Team | Description | +--------+ + + + + | 11/23/ | Telephone | [facility] | Luther Brito MD | Other | | 2017 | | GASTROENTEROLOGY | [address] | | | | | [address] [facility] | [place], [place] | | | | | [address] [place], [place] | [address] | | | | | [address] | [phone] | | | | | [phone] | | | +--------+ + + + [...] this encounter Miscellaneous Notes Telephone Encounter - Dixie Salomon RN - 11/24/2017 8:45 AM PDTSpoke with patient and s he said her stools are now more formed so she is unable thus far to submit stool samples; sh jennifer is having 2-3 loose soft stools daily and continues to have nausea which she thinks is fro m her medications; she will submit sample if develops liquid stools again and is scheduled f or egd/colon on 12/[address] Brito. Electronically signed by Dixie Salomon RN at 8 8:48 AM PDTTelephone Encounter - Teja Hussein - 11/23/2017 1:00 PM PDTName of Caller : Belinda J Shefali Name of Patient: Belinda Meehan Reason for call: Pt has questions regarding her colonoscopy and egd - on 12/18/17. Pt can not do her stool samples. Pt is having difficulties and wants to know if it will interfere w ith her procedure on 12/18/17. Provider/Nurse: Dr. Brito / Dixie Call back number: [phone] documented in this encou nter Plan of [...] | | | | | [place] [address] | | | | | | [phone] | | | | | | | | +--------+---------+ + + + | 12/20/ | Office | Otolaryngology | Ulysses Genao MD | | | 2019 | Visit | | [address] | | | | | | [address] | | | | | | [place] [address] | | | | | | [phone] | | | | | | | | +--------+---------+ + + + | 02/15/ | Office | Internal Medicine | Alanis, | | | 2020 | Visit | | MD Petrona | | | | | | [address] | | | | | | [place] [address] | | | | | | [phone] | | | | | | | | +--------+---------+ + + + documented as of this encounter Visit Diagnoses Not on filedocumented in this encounter"
--- OUTSIDE RECORDS SUMMARY | ~2019-12-13 | XMS | Encounter Summary ---
Demographics + + + | Address | [address] | | | [place] [address] | + + + | Home Phone [...] Team Providers + +------+ + | Care Fiberglass Boat Maker Name | Role | Phone | [...] | | Order | Loop [facility] | [place], [place] | | | | | [place], [facility] floor | [address] | | | | | [place], [place] | [phone] | | | | | [address] | | | | | | [phone] | | | +--------+ + + + [...]
--- OUTSIDE RECORDS SUMMARY | ~2019-12-13 | XMS | Encounter Summary ---
Demographics + + + | Address | [address] | | | [place] [address] | + + + | Home Phone [...] Providers + +------+ + | Care Poultry Cutter Name | Role | Phone | [...] [address] | | | | | [place] [facility] | [place], [place] | | | | | [address] | [address] | | | | | [address] | [phone] | | | | | [facility] | | | | | | Physician's | | | | | | Pavilion [place], | | | | | | [place] [address] | | | | | | [phone] | | | +--------+ + + + [...]
--- OUTSIDE RECORDS SUMMARY | ~2019-12-13 | XMS | Encounter Summary ---
Demographics + + + | Address | [address] | | | [place] [address] | + + + | Home Phone [...] Team Providers + +------+ + | Care Bond Trader Name | Role | Phone | + [...] | 02/15/ | Refill | [facility] | Alanis, | Medication Refill | | 2018 | | MEDICINE [address] | MD Petrona | | | | | [place], | [address] | | | | | [place] [address] | [place] [address] | | | | | [phone] | [phone] | | | | | | | [...] US be sent to [facility], [place] elephone Lula dhillon - Maggie [...] Visit | | [facility] [address] | | | | | [address] [place] | | | | | | [place] [address] | | | | | | [phone] | | | | | | | | +--------+---------+ + + + | 12/20/ | Office | Otolaryngology | Ulysses Geano MD | | | 2019 | Visit | | [address] | | | | | | [address] | | | | | | [place] [address] | | | | | | [phone] | | | | | | | | +--------+---------+ + + + | 02/15/ | Office | Internal Medicine | Alanis, | | | 2020 | Visit | | MD Petrona | | | | | | [address] [place] | | | | | | [place] [address] | | | | | | [phone] | | | | | | | | +--------+---------+ + + + documented as of this encounter Visit Diagnoses Not on filedocumented in this encounter"
--- OUTSIDE RECORDS SUMMARY | ~2019-12-13 | XMS | Encounter Summary ---
Demographics + + + | Address | [address] | | | [place] [address] | + + + | Home Phone [...] | | + + +---------+ + | Sere Wells | ECON | Unknown | | + + +---------+ + | Marco Antonio Wells | ECON | Unknown | | + + +---------+ + Care Team Providers + +------+ + | Care Manipulative Therapy Specialist Name | Role | Phone | + +------+ + | Petrona Thapa | PCP | | | MD | | | + +------+ + Reason for Visit + +--------+ + | Reason | Onset | Comments | | | Date | | + +--------+ + | Results, Imaging | 12/28/ | | | | 2017 | | [...] | | | [place], | [address] [facility] [place] | | | | | [place] [address] | [place] [address] | | | | | [phone] | [phone] | | | | | | | [...] Telephone Encounter - Maggie Montoya LPN - 12/31/2017 5:35 PM PDTPatient notified that we have not received the US results yet from [facility], she will call them and have them fax to for review eleph one Encounter - Malissa Redd - 12/31/2017 2:28 PM PDTPatient called again would really like a call back today. Please call back [phone] signed by Malissa Redd at 12/31/2017 2:29 PM PDTTelephone En counter - FonMalissa dueñas - 12/31/2017 8:21 AM PDTPatient called again and would like to k now if the results have been received. Patient is concerned they haven't been sent and would really like to have someone confirm that they have been received. [phone] signed by Malissa Redd at 12/31/2017 8:23 AM PDTTelephone En counter - FonMalissa dueñas - 12/30/2017 11:17 AM PDTPatient called to check on status of res ults for Ultra sound that was done in [facility]. Please return patients call if results were received [phone] signed by Malissa Redd at 12/30/2017 11:19 AM PDTTelephone En mauro - ElenaJuliane - 12/28/2017 9:32 AM PDTPatient called stating she had ultrasound done for her kidney's and liver. Doctor should be getting sooner and wanted to let the docto r know. documented in this e ncounter Plan of [...] | | | | | [place] [address] | | | | | | [phone] | | | | | | | | +--------+---------+ + + + | 12/20/ | Office | Otolaryngology | Ulysses Genao MD | | | 2019 | Visit | | [address] | | | | | | [address] [place] | | | | | | [place] [address] | | | | | | [phone] | | | | | | | | +--------+---------+ + + + | 02/15/ | Office | Internal Medicine | Alanis, | | | 2019 | Visit | | MD Petrona | | | | | | [address] [place] | | | | | | [place] [address] | | | | | | [phone] | | | | | | | | +--------+---------+ + + + documented as of this encounter Visit Diagnoses Not on filedocumented in this encounter"
--- OUTSIDE RECORDS SUMMARY | ~2019-12-13 | XMS | Encounter Summary ---
Demographics + + + | Address | [address] | | | [place] [address] | + + + | Home Phone [...] Team Providers + +------+ + | Care Putty Mixer And Applier Name | Role | Phone | + [...] as of this encounter Progress Notes Interface, Mitering Machine Operator In - 01/12/2005 12:26 AM PDT [id number] [facility] Date: 07/25/2004 Clinic: Rheumatology [...] weight that she has lost. At the [employer], a study was presented [...] 6 months. Caitlin Rivera M.S., F.N.P. / [id number] / [id number] / [id number] / [id number] cc: Pedrito Gutierrez M.D. [address] [facility] [place] [address] Electronically signed by Caitlin Rivera 07-31-2004 12:02:37 PM documented i n this encounter Plan of Treatment Not on filedocumented as of this encounter Visit Diagnoses Not on filedocumented in this encounter"
--- OUTSIDE RECORDS SUMMARY | ~2019-12-13 | XMS | Encounter Summary ---
Demographics + + + | Address | [address] | | | [place] [address] | + + + | Home Phone [...] Team Providers + +------+ + | Care Conditioning Machine Operator Name | Role | Phone | + +------+ + | Petrona Thapa | PCP | | | MD | | | + +------+ + Reason for Visit +--------+--------+ + | Reason | Onset | Comments | | | Date | | +--------+--------+ + | Other | 03/05/ | | | | 2017 | | +--------+--------+ + Encounter Details +--------+ + + + + | Date | Type | Department | Care Team | Description | +--------+ + + + + | 03/05/ | Telephone | [facility] | Alanis, | Other | | 2017 | | MEDICINE [address] | MD Petrona | | | | | [place], | [address] [facility] | | | | | [place] [address] | [place] [address] | | | | | [phone] | [phone] | | | | | | | [...] Telephone Encounter - Maggie Montoya LPN - 03/08/2018 5:12 PM PDTPatient was admitted and surgery for bowel blockage elephone Encounter - Lisa Hurley RN - 03/05/2018 11:58 AM PDTI have tried calling Shalonda back 3 different times and have not been able to reach her. VM left for her to return my call. elephone En mauro - Sia Bai - 03/05/2018 9:19 AM PDTShalonda [facility] nurse about patient, Shalonda can be reached at [phone] prieto signed by Sia Bai at 03/05/2018 9:20 AM PDTdocumented in this encounter Plan of [...] | | | | | | [place] [address] | | | | | | [phone] | | | | | | | | +--------+---------+ + + + | 12/20/ | Office | Otolaryngology | Ulysses Genao MD | | | 2019 | Visit | | [address] | | | | | | [address] | | | | | | [place] [address] | | | | | | [phone] | | | | | | | | +--------+---------+ + + + | 02/15/ | Office | Internal Medicine | Alanis, | | | 2019 | Visit | | MD Petrona | | | | | | [address] [place] | | | | | | [place] [address] | | | | | | [phone] | | | | | | | | +--------+---------+ + + + documented as of this encounter Visit Diagnoses + + | Diagnosis | + + | Non-intractable vomiting with nausea, unspecified vomiting type - Primary | + + documented in this encounter"
--- OUTSIDE RECORDS SUMMARY | ~2019-12-13 | XMS | Encounter Summary ---
Demographics + + + | Address | [address] | | | [place] [address] | + + + | Home Phone [...] Team Providers + +------+ + | Care Violent Crimes Detective Name | Role | Phone | + +------+ + | Pedrito Gutierrez MD | PCP | | + +------+ + Encounter Details +--------+ + + + + | Date | Type | Department | Care Team | Description | +--------+ + + + + | 05/20/ | Telephone | Digestive Health | Rohan Foley MD | | | 2005 | | [place] [facility] [address] | | | | | | [address] | | | | | | Mailcode: Center | | | | | | for Health and | | | | | | [facility], [address] | | | | | | [place], [place] | | | | | | [address] | | | | | | [phone] | | | +--------+ + + + [...]
--- OUTSIDE RECORDS SUMMARY | ~2019-12-13 | XMS | Encounter Summary ---
Demographics + + + | Address | [address] | | | [place] [address] | + + + | Home Phone [...] Providers + +------+ + | Care Sound Tester Name | Role | Phone | + +------+ + | Petrona Thapa | PCP | | | MD | | | + +------+ + Reason for Visit + +--------+ + | Reason | Onset | Comments | | | Date | | + +--------+ + | Medication Refill | 10/09/ | | | | 2017 | | + +--------+ + Encounter Details +--------+--------+ + + + | Date | Type | Department | Care Team | Description | +--------+--------+ + + + | 10/09/ | Refill | [facility] | Alanis, | Medication Refill | | 2017 | | MEDICINE [address] | MD Petrona | | | | | [place], | [address] | | | | | [place] [address] | [place] [address] | | | | | [phone] | [phone] | | | | | | | [...] | | | | | [place] [address] | | | | | | [phone] | | | | | | | | +--------+---------+ + + + | 12/20/ | Office | Otolaryngology | Ulysses Genao MD | | | 2019 | Visit | | [address] | | | | | | [address] | | | | | | [place] [address] | | | | | | [phone] | | | | | | | | +--------+---------+ + + + | 02/15/ | Office | Internal Medicine | Alanis, | | | 2019 | Visit | | MD Petrona | | | | | | [address] [place] | | | | | | [place] [address] | | | | | | [phone] | | | | | | | | +--------+---------+ + + + documented as of this encounter Visit Diagnoses Not on filedocumented in this encounter"
--- OUTSIDE RECORDS SUMMARY | ~2019-12-13 | XMS | Encounter Summary ---
Demographics + + + | Address | [address] | | | [place] [address] | + + + | Home Phone [...] Providers + +------+ + | Care Patient Accounts Specialist Name | Role | Phone | [...] [facility] | | | | | | [facility] | | | | | | and Healing, | | | | | | [address]th | | | | | | Floor [place], [place] | | | | | | [address] | | | | | | [phone] | | | +--------+ + + + [...]
--- OUTSIDE RECORDS SUMMARY | ~2019-12-13 | XMS | Encounter Summary ---
Demographics + + + | Address | [address] | | | [place] [address] | + + + | Home Phone [...] Providers + +------+ + | Care Track Inspector Name | Role | Phone | [...] [address] | | | | | [place], [place] | [place], [place] | | | | | [address] | [address] | | | | | [phone] | [phone] | | | | | | | [...]
--- OUTSIDE RECORDS SUMMARY | ~2019-12-13 | XMS | Encounter Summary ---
Demographics + + + | Address | [address] | | | [place] [address] | + + + | Home Phone [...] Providers + +------+ + | Care Leasing Associate Name | Role | Phone | [...] [address] | | | | | | [place], [place] | | | | | | [address] | | | +--------+ + + + [...]
--- OUTSIDE RECORDS SUMMARY | ~2019-12-13 | XMS | Encounter Summary ---
Demographics + + + | Address | [address] | | | [place] [address] | + + + | Home Phone [...] Providers + +------+ + | Care Clinical Manager Home Care Name | Role | Phone | + [...] as of this encounter Progress Notes Interface, Wilton Weaver In - 01/12/2005 8:09 AM PDT [id number] [facility] Date: 03/07/2004 Clinic: [facility] TELEPHONE CONVERSATION Subjective: Belinda contacted the [...] cholelithiasis. She is welcome to come to [facility] for evaluation; however, given the distance of a 4-hour travel time, we found it would be more expeditious for her to be seen at her local hospital in [place]. The patient also agrees with this plan [...] can provide any additional followup as needed. Christie Kirkpatrick / [id number] / [id number] / [id number] / documented i n this encounter Plan of Treatment Not on filedocumented as of this encounter Visit Diagnoses Not on filedocumented in this encounter"
--- OUTSIDE RECORDS SUMMARY | ~2019-12-13 | XMS | Encounter Summary ---
Demographics + + + | Address | [address] | | | [place] [address] | + + + | Home Phone [...] Team Providers + +------+ + | Care Leave Manager Name | Role | Phone | + +------+ + | Sulaiman Carrera MD | PCP | | + +------+ + Encounter Details +--------+ + + + + | Date | Type | Department | Care Team | Description | +--------+ + + + + | 07/24/ | Ancillary | Registration [address] | [place], | | | 2006 | Registratio | [facility] | MD Lukasz [address] | | [address] | [address] Mailcode: RPB[address] | [place], | | | | | [place], [place] | [place] [address] | | | | | [address] | [phone] | | | | | [phone] | | | +--------+ + + + [...] | + +--------+ + + + | VON [facility]LEBRAND | Routin | 07/24/2005 | | Results [...] | | | | | performed at [facility] | | | | | | [facility] | | | | | | Laboratory | | | | + + + + + + + + | Specimen | + + | | + + + + + + + | Performing | Address | City/State/Zipcode | Phone Number | | Organization | | | | + + + + + | [facility] | [address] | [place] [address] | | | LABORATORY | | | [...] Performed At | + + + | von Willebrand Panel | [facility] | | | DEPARTMENT OF | | | PATHOLOGY | + + + + + + + + | Performing | Address | City/State/Zipcode | Phone Number | | Organization | | | | + + + + + | [facility] DEPARTMENT OF | [address] | [place] [address] | | | PATHOLOGY | [address] | | | + + + + + | [facility] DEPARTMENT OF | [address] | [place] [address] | | | PATHOLOGY | [address] [...] | + + + + + | [facility] DEPARTMENT OF | [address] | [place] [address] | | | PATHOLOGY | [address] | | | + + + + + | [facility] DEPARTMENT OF | [address] [facility] | [place] [address] | | | PATHOLOGY | [address] [...] DEPARTMENT OF | [address] | [place] [address] | | | PATHOLOGY | [address] | | | + + + + + | [facility] DEPARTMENT OF | [address] | [place] [address] | | | PATHOLOGY | [address] | | | + + + + + PROTHROMBIN TIME (07/24/2005 5:03 PM PST) + + + + + + | Component | Value | Ref Range | Performed | Pathologist | | | | | At | Signature | + + + + + + | INR | 0.97Comment: | 0.90 - 1.20 INR | [facility] | | | | PT INR Therapeutic [...] + + | [facility] | [address] | [place] [address] | | | PATHOLOGY | [address] | | | + + + + + | [facility] DEPARTMENT OF | [address] | [place] [address] | | | PATHOLOGY | [address] [...] + + | [facility] | [address] | [place] [address] | | | PATHOLOGY | [address] | | | + + + + + | [facility] | [address] | [place] [address] | | | PATHOLOGY | [address] | | | + + + + + documented in this encounter Visit Diagnoses Not on filedocumented in this encounter"
--- OUTSIDE RECORDS SUMMARY | ~2019-12-13 | XMS | Encounter Summary ---
[...] Providers + +------+ + | Care Pigment Pusher Name | Role | Phone | [...] | | 2005 | | Center at [facility] [address] | | endoscopy procedure | | | | [address] | | | | | | Mailcode: [place] | | | | | | [facility] and | | | | | | [place] [address] | | | | | | [place], [place] | | | | | | [address] | | | | | | [phone] | | | +--------+ + + + [...] en doscopy in the [facility], see transcri bed report. Earnest Ward documented in this encount er Plan of Treatment + + +--------+ + + | Name | Type | Priori | Associated Diagnoses | Order Schedule | | | | ty | | | + + +--------+ + + | [place] GI TRACT IMAGING, | Procedures | Routin [...]
--- OUTSIDE RECORDS SUMMARY | ~2019-12-13 | XMS | Encounter Summary ---
Demographics + + + | Address | [address] | | | [place] [address] | + + + | Home Phone [...] Providers + +------+ + | Care Inspector Floor Name | Role | Phone | + +------+ + PCP | Unavailable | + +------+ + Encounter Details +--------+ + + + + | Date | Type | Department | Care Team | Description | +--------+ + + + + | 08/09/ | Results | Endocrinology, | Beto Meeks MD | | | 2002 | Only | Diabetes and | [address] | | | | | Clinical Nutrition | [place], [place] | | | | | [address] | [address] | | | | | Loop Mailcode: OPC5 | [phone] | | | | | Outpatient Clinic | | | | | | [facility] | | | | | | [place] [address] | | | | | | [phone] | | | +--------+ + + + [...] + | COMPLETE METABOLIC | Routin | 08/09/2002 | | Results for this | | SET | e | 3:11 PM | | procedure are in the | | (NA,K,CL,CO2,BUN,CRE | | PST | | results section. | | AT,GLUC,CA,AST,ALT,B | | | | | | DEYA TOTAL,ALK | | | | | | PHOS,ALB,PROT TOTAL) | | | | | + +--------+ + + + documented in this encounter Results COMP METABOLIC SET (08/09/2002 3:11 PM PST) + +---------+ + + + [...] +---------+ + + + | CREATININE | 0.5 (L) | 0.6 - 1.1 mg/dL | [facility] [...] + + + | ALK PHOS | 70 | 42 - 98 U/L | [facility] [...] + + + | ALT (SGPT) | 43 | 13 - 48 U/L | [facility] [...] | + + + + + | [facility] | [address] | [place] [address] | | | PATHOLOGY | [address] | | | + + + + + | [facility] | [facility] | [place] [address] | | | PATHOLOGY | [address] | | | + + + + + documented in this encounter Visit Diagnoses Not on filedocumented in this encounter"
--- OUTSIDE RECORDS SUMMARY | ~2019-12-13 | XMS | Encounter Summary ---
Demographics + + + | Address | [address] | | | [place] [address] | + + + | Home Phone [...] Team Providers + +------+ + | Care Churn Tender Name | Role | Phone | + +------+ + | Maria Esther Cintron MD | PCP | | + +------+ + Reason for Visit + + + | Reason | Comments | + + + | Refill Request | levothyroxine | + + + Encounter Details +--------+--------+ + + + | Date | Type | Department | Care Team | Description | +--------+--------+ + + + | 12/21/ | Refill | Kraig Turner | Beto Meeks MD | Refill Request | | 2011 | | Diabetes [facility] | [address] | (levothyroxine) | | | | [facility] | [place], [place] | | | | | [address] | [address] | | | | | [address] | [phone] | | | | | [facility] | | | | | | Physician's | | | | | | Pavilion [place], | | | | | | [place] [address] | | | | | | [phone] | | | +--------+--------+ + + + [...]
--- OUTSIDE RECORDS SUMMARY | ~2019-12-13 | XMS | Encounter Summary ---
Demographics + + + | Address | [address] | | | [place] [address] | + + + | Home Phone [...] Team Providers + +------+ + | Care Hydraulic Riveter Name | Role | Phone | + [...] 07/30/ | Office | [facility] | Lukasz Charles, | Major Depressive | | 2006 | Visit | [address] | PhD [address] | Disorder, Recurrent | | | | Mailcode: [facility] | [place], [place] | Episode, Moderate; | | | | [facility] | [address] | Chronic Abdominal | | | | and Healing, | [phone] | Pain; Herniated | | | | Building | | Lumbar | | | | Floor [place], [place] | | Intervertebral Disc | | | | [address] | | L4-5; 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 Ms. Meehan has depression and frustration. She is having some difficulty increasing her a ctivity level but she is putting forth effort. She appears to have good insight. Diagnosis: [place] I: 1. (296.32) Major depressive disorder, recurrent, moderate. 2. (309.24) Adjustment disorder with anxiety. 3. 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 [place] II: Deferred [place] III: abdominal pain, migraine headache, low back pain. [place] IV: low finances [place] V: GAF 50 Plan: Return in 2 weeks. Check pacing, relaxation, activity. Check trip to [place]. Check mood. Continue cognitive/behavioral therapy. Total time spent with patient was approximately 45 minutes. LUKASZ CHARLES PHD [facility] [address] [facility] [address] [address] documented in this encount er Plan of Treatment + + +--------+ + + | Name | Type | Priori | Associated Diagnoses | Order Schedule | | | | ty | | | + + +--------+ + + | [facility], | Procedures | Routin | Major Depressive | Ordered: 07/31/2006 | | OFFICE (45-82) | | e | Disorder, Recurrent | [...]
--- OUTSIDE RECORDS SUMMARY | ~2019-12-13 | XMS | Encounter Summary ---
Demographics + + + | Address | [address] | | | [place] [address] | + + + | Home Phone [...] Team Providers + +------+ + | Care Asp Net Software Developer Name | Role | Phone | + +------+ + PCP | Unavailable | + +------+ + Encounter Details +--------+ + + + + | Date | Type | Department | Care Team | Description | +--------+ + + + + | 07/04/ | Office | Endocrinology, | Beto Meeks MD | | | 2005 | Visit-ECX | Diabetes and | [address] | | | | | Clinical Nutrition | [place], [place] | | | | | [address] | [address] | | | | | Loop Mailcode: OPC5 | [phone] | | | | | Outpatient Clinic | | | | | | [facility] | | | | | | [place] [address] | | | | | | [phone] | | | +--------+ + + + [...]
--- OUTSIDE RECORDS SUMMARY | ~2019-12-13 | XMS | Encounter Summary ---
Demographics + + + | Address | [address] | | | [place] [address] | + + + | Home Phone [...] Providers + +------+ + | Care Auto Garage Mechanic Name | Role | Phone | [...] [address] | | | | | [facility] | [place], [place] | | | | | and Healing, | [address] | | | | | [place] [address], [facility] | [phone] | | | | | Floor [place], [place] | | | | | | [address] | | | | | | [phone] | | | +--------+ + + + [...]
--- OUTSIDE RECORDS SUMMARY | ~2019-12-13 | XMS | Encounter Summary ---
Demographics + + + | Address | [address] | | | [place] [address] | + + + | Home Phone [...] Team Providers + +------+ + | Care Outpatient Clerk Name | Role | Phone | [...] as of this encounter Progress Notes Interface, High School Coach In - 08/22/2005 2:06 AM PST [id number] [facility] Date: 07/31/2005 Clinic: Surgery [...] exploratory laparotomy. Plan: Emergency supply approved by [facility] in [place]. Quantity 35 was requested and will be filled. I will send a prescription for 40 additional oxycodone 5 mg. The patient will be seen in clinic in one week. Melisa Thorne / SHARIF [id number] / [id number] / [id number] / [id number] Electronically signed by Kenisha Melton 08-21-2005 07:00:10 PM documented corrie cortes this encounter Plan of Treatment Not on filedocumented as of this encounter Visit Diagnoses Not on filedocumented in this encounter"
--- OUTSIDE RECORDS SUMMARY | ~2019-12-13 | XMS | Encounter Summary ---
Demographics + + + | Address | [address] | | | [place] [address] | + + + | Home Phone [...] Team Providers + +------+ + | Care Petroleum Blending Plant Operator Name | Role | Phone | + +------+ + | Pedrito Gutierrez MD | PCP | | + +------+ + Encounter Details +--------+---------+ + + + | Date | Type | Department | Care Team | Description | +--------+---------+ + + + | 02/01/ | Office | Digestive Health | Chris Padgett, | Status Post | | 2006 | Visit | [place] [address] | [address] | Bariatric Surgery; | | | | Ave Mailcode: CH4S | [address] | Follow-Up | | | | [facility] | [place], [place] | Examination | | | | and Healing, | [address] | Following Surgery | | | | Building | [phone] | | | | | Floor [place], [place] | | | | | | [address] | | | | | | [phone] | | | +--------+---------+ + + + [...] history of intermittent abdominal pain [facility] mo f/u evaluation with no [...]
--- OUTSIDE RECORDS SUMMARY | ~2019-12-13 | XMS | Encounter Summary ---
Demographics + + + | Address | [address] | | | [place] [address] | + + + | Home Phone [...] Providers + +------+ + | Care Quality Specialist Name | Role | Phone | [...] 2005 | Activity | TRACE Wilson MD [address] | | | | | [place] Mailcode: RPB07 | [place], [place] | | | | | [place], [place] | [address] | | | | | [address] | [phone] | | | | | [phone] | | | +--------+ + + + [...] M.D./PathologistT:04/06/ | | | | | | 06:[facility] I have reviewed | | | | [...] + + + + + | [facility] | [address] | [place] [address] | | | PATHOLOGY | [address] | | | + + + + + | [facility] DEPARTMENT OF | [facility] | [place] [address] | | | PATHOLOGY | [address] | | | + + + + + documented in this encounter Visit Diagnoses Not on filedocumented in this encounter"
--- OUTSIDE RECORDS SUMMARY | ~2019-12-13 | XMS | Encounter Summary ---
Demographics + + + | Address | [address] | | | [place] [address] | + + + | Home Phone [...] Providers + +------+ + | Care Television Journalist Name | Role | Phone | + [...] of this encounter Progress Notes Interface, Clinical Administrative Coordinator In - 01/12/2005 8:09 AM PDT [id number] [facility] Date: 02/27/2004 Clinic: [facility] Subjective: The patient underwent gastric bypass surgery in November 2003 under the care of Dr. Chris Padgtet here at [facility]. She has been doing well after the [...] been scheduled through the Sleep Clinic in [place]. Medications 1. Ranitidine 150 mg p.o. b.i.d. [...] months. Issac Meeks M.D. MONIQUE / SHARIF [id number] / [id number] / [id number] / cc: Joanna Arshad M.D. [address] [place] [address] documented i n this encounter Plan of Treatment Not on filedocumented as of this encounter Visit Diagnoses Not on filedocumented in this encounter"
--- OUTSIDE RECORDS SUMMARY | ~2019-12-13 | XMS | Encounter Summary ---
Demographics + + + | Address | [address] | | | [place] [address] | + + + | Home Phone [...] Team Providers + +------+ + | Care Ear Muff Assembler Name | Role | Phone | + +------+ + | Pedrito Gutierrez MD | PCP | | + +------+ + Encounter Details +--------+ + + + + | Date | Type | Department | Care Team | Description | +--------+ + + + + | 04/17/ | Telephone | [facility] Division of | Carlos Arreola, | | | 2005 | | Gastroenterology/Hep | [address] | | | | | atology [address] | [address] | | | | | [address] | [place] [address] | | | | | Mailcode: PV310 | [phone] | | | | | Physician's [address] | | | | | | [address] | | | | | | [place], [place] | | | | | | [address] | | | | | | [phone] | | | +--------+ + + + [...]
--- OUTSIDE RECORDS SUMMARY | ~2019-12-13 | XMS | Encounter Summary ---
Demographics + + + | Address | [address] | | | [place] [address] | + + + | Home Phone [...] Team Providers + +------+ + | Care Metrology Engineer Name | Role | Phone | + +------+ + | Pedrito Gutierrez MD | PCP | | + +------+ + Encounter Details +--------+------+ + + + | Date | Type | Department | Care Team | Description | +--------+------+ + + + | 08/28/ | Lab | Laboratory at [facility] | | Chronic Abdominal | | 2008 | | [address] | | Pain; Status Post | | | | [place], [place] | | Bariatric Surgery | | | | [address] | | | | | | [phone] | | | +--------+------+ + + + [...] + + | INR | Routin | 08/28/2008 | Chronic Abdominal | Results for this | | | e | 3:31 PM | Pain | procedure are in the | | | | PDT | | results section. | + +--------+ + + + | COMPLETE METABOLIC | Routin | 08/28/2008 | Status Post | Results for this | | SET | e | 3:31 PM | Bariatric Surgery | procedure are [...] Performed At | + + + | [id number] Estimated GFR > 60 mL/min/1.73 sq m if non- | [facility] | | [place] [id number] Estimated GFR > 60 mL/min/1.73 sq m if | DEPARTMENT OF | | [place] GFR is estimated using the MDRD equation [...] + + + + + | [facility] | [address] | [place] [address] | | | PATHOLOGY | [address] | | | + + + + + | [facility] DEPARTMENT | [address] | [place] [address] | | | PATHOLOGY | [address] | | | + + + + + INR (08/28/2008 3:31 PM PDT) + + + + + + | Component | Value | Ref Range | Performed | Pathologist | | | | | At | Signature | + + + + + + | INR | 0.96Comment: | 0.90 - 1.20 INR | [facility] | | | | INR Therapeutic ranges [...] + + + + + | [facility] | [address] [facility] | [place] [address] | | | PATHOLOGY | [address] | | | + + + + + | [facility] DEPARTMENT OF | [address] | [place] [address] | | | PATHOLOGY | [address] | | | + + + + + documented in this encounter Visit Diagnoses + + | Diagnosis | + + | Chronic abdominal pain Abdominal pain, unspecified site | + + | Status post bariatric surgery Bariatric surgery status | + + documented in this encounter"
--- OUTSIDE RECORDS SUMMARY | ~2019-12-13 | XMS | Encounter Summary ---
Demographics + + + | Address | [address] | | | [place] [address] | + + + | Home Phone [...] Providers + +------+ + | Care Fire Department Battalion Chief Name | Role | Phone | [...] 10/07/ | Office | [facility] | Lukasz Charles, | Major Depressive | | 2006 | Visit | [address] | PhD [address] | Disorder, Recurrent | | | | Mailcode: CH15P | [facility] [place] | Episode, Moderate | | | | Center for Health | [address] | ([facility]); Spondylosis | | | | and Healing, | [phone] | with Myelopathy, | | | | Building | | Lumbar Region; | | | | Floor [facility] [place] | | Chronic Abdominal | | | | [address] | | Pain; Adjustment | | | | [phone] | | Disorder with | | | [...] will need to continue self-c are. Diagnosis: [place] I: 1. (296.32) Major depressive disorder, recurrent, moderate. 2. (309.24) Adjustment disorder with anxiety. 3. 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 [place] II: Deferred [place] III: abdominal pain, migraine headache, low back pain. [place] IV: low finances [place] V: GAF 50 Plan: Return in 2 weeks. Schedule 4 follow-up appointments. Check preparation for move and for niece's visit. Check [employer], pacing, relaxation, activity, distraction. Check "Managin g Pain..." book. Continue cognitive/behavioral therapy. Total time spent with patient was approximately 45 minutes. LUKASZ CHARLES PHD [facility] [address] [facility] [place] [address] documented in this encount er Plan of Treatment + + +--------+ + + | Name | Type | Priori | Associated Diagnoses | Order Schedule | | | | ty | | | + + +--------+ + + | CT PSYCHOTHERPY, | Procedures | Routin | Major Depressive | Ordered: 10/07/2006 | | OFFICE (45-50) | | e | Disorder, Recurrent | | | | | | Episode, Moderate | | | | | | ([facility]) Spondylosis | | | | | | [...]
--- OUTSIDE RECORDS SUMMARY | ~2019-12-13 | XMS | Encounter Summary ---
Demographics + + + | Address | [address] | | | [place] [address] | + + + | Home Phone [...] Providers + +------+ + | Care Community Health Outreach Worker Name | Role | Phone | + +------+ + PCP | Unavailable | + +------+ + Encounter Details +--------+ + + + + | Date | Type | Department | Care Team | Description | +--------+ + + + + | 11/06/ | Office | | Note, Outpatient | [...] as of this encounter Progress Notes Interface, Cook Dessert In - 01/11/2005 8:56 PM PDTClinic Date: 11/07/2003 Clinic: [facility] DISORD[facility]INIC Problem List 1. Metabolic syndrome. 2. Obstructive sleep apnea. 3. Hypertension. 4. Impaired glucose tolerance. 5. Asthma. 6. DJD of spine, hips, and knees. Medication List: Inderal 160 mg, short-acting, 2 tablets p.o. b.i.d.; Flexeril 10 mg p.o. p.r.n.; diclofenac 100 mg p.o. b.i.d.; Axid 300 mg p.o. daily; triamterene/hydrochlorothiazide 15/50 one tablet p.o. q.day.; Lexapro 10 mg p.o. q.day.; amitriptyline 25 mg p.o. nightly; Darvocet p.r.n.; multivitamin; calcium carbonate; vitamin D; phenergan p.r.n.; albuterol inhaler p.r.n.; ibuprofen p.r.n.; and aspirin p.r.n. Subjective: Ms. Meehan is a 43-year-old woman with metabolic syndrome here for a followup. Since her last visit, her weight has decreased 12 pounds despite her having discontinued the phentermine approximately 6 months ago secondary to headache. She attributes this to improved dietary habits; specifically, she is eating more fresh fruits and vegetables now that they are in season. She is getting almost no exercise at all due to difficulty with pain in her right foot. She has been in a walking cast for the last 3 months which has made ambulating very difficult for her. She has scheduled her gastric bypass surgery and will be admitted to [facility] for this procedure on November 22, 2003. She reports that she will have a cholecystectomy at the same time. She is looking forward to her surgery. She has no questions about it at this time. Her muscle aches and joint pains are stable but continue to be present. She has had some difficulty with her blood pressure on occasion. Her insurance stopped covering the long-acting form of Inderal, so she has been changed to b.i.d. dosing of the short-acting Inderal by her pharmacy, and this dosing regimen continues to be altered. Her blood pressure today is 94/50. She denies dizziness and lightheadedness. Her review of systems is otherwise negative. Objective Vital Signs: Weight is 320.2 pounds, which is down 12 pounds from July 2003. Her blood pressure is 94/50, and heart rate is 84. HEENT: Pupils are equal, round, and reactive to light and accommodation. Sclerae are nonicteric. Neck: Supple without lymphadenopathy or thyromegaly. Chest: Clear to auscultation bilaterally. Cardiac: Regular rate and rhythm. No murmur or gallop. Abdomen: Obese with good bowel tones, nontender, and nondistended. Extremities: Lower: Asymmetric with the left being greater than the right. This is chronic for the past 3 months secondary to a walking cast. There is no edema. Cords palpable. Assessment and Plan 1. Metabolic syndrome. The patient is scheduled for gastric bypass surgery on November 22, 2003. We will see her in followup approximately 2 to 3 months after her surgery is completed. 2. Hypertension. Blood pressure is well controlled. In fact, the patient is slightly hypotensive today although she is asymptomatic. We recommended that perhaps instead of taking 2 tablets of Inderal b.i.d. that she spread the amount and take 1 tablet q.i.d. as this may provide for more optimal blood pressure control. 3. Chronic muscle and joint pain. I do anticipate the patient will have significant pain postoperatively. She anticipates this and has discussed it with her primary care providers. She is scheduled for some joint injections in December 2003 and also has plenty of pain medication at home for a postoperative course. 4. The patient is to return to clinic in 2 to 3 months. This patient was seen and staffed with Dr. Meeks who agrees with the above assessment and plan. Ester Romero M.D. Issac Meeks M.D. / [id number] / [id number] / [id number] / [id number] Tdocumented in this encounter Plan of Treatment Not on filedocumented as of this encounter Visit Diagnoses Not on filedocumented in this encounter"
--- OUTSIDE RECORDS SUMMARY | ~2019-12-13 | XMS | Encounter Summary ---
Demographics + + + | Address | [address] | | | [place] [address] | + + + | Home Phone [...] Team Providers + +------+ + | Care Boxing Instructor Name | Role | Phone | [...] | | | | [id number] [facility] | [place], [place] | | | | | [address] | [address] | | | | | [place], [place] | [phone] | | | | | [address] | | | | | | [phone] | | | +--------+ + + + [...] | + + + + + | [facility] DEPARTMENT OF | [address] | [place] [address] | | | PATHOLOGY | [address] | | | + + + + + | [facility] DEPARTMENT OF | [address] | [place] [address] | | | PATHOLOGY | [address] [...] + + + + | [facility] DEPARTMENT OF | [facility] | [place] [address] | | | PATHOLOGY | [address] | | | + + + + + | [facility] DEPARTMENT OF | [facility] | [place] [address] | | | PATHOLOGY | [address] [...] Performed At | + + + | BRODY MARX 11-25-03 @ 0700 | [facility] | | | DEPARTMENT OF | | | PATHOLOGY | + + + + + + + + | Performing | Address | City/State/Zipcode | Phone Number | | Organization | | | | + + + + + | [facility] DEPARTMENT OF | [address] | [place] [address] | | | PATHOLOGY | [address] | | | + + + + + | [facility] DEPARTMENT OF | [address] [facility] | [place] [address] | | | PATHOLOGY | [address] [...] 1: [place], | | | | | [place] | Joanna GOODWINEXAM:PA and | | [...] + + + + | [facility] DEPARTMENT OF | [address] | [place], [place] [address] | | | PATHOLOGY | [address] | | | + + + + + | [facility] DEPARTMENT OF | [address] | [place] [address] | | | PATHOLOGY | [address] [...] + + | [facility] | [address] | [place] [address] | | | PATHOLOGY | [address] | | | + + + + + | [facility] | [address] | [place] [address] | | | PATHOLOGY | [address] | | | + + + + + documented in this encounter Visit Diagnoses Not on filedocumented in this encounter"
--- OUTSIDE RECORDS SUMMARY | ~2019-12-13 | XMS | Encounter Summary ---
Demographics + + + | Address | [address] | | | [place] [address] | + + + | Home Phone [...] Providers + +------+ + | Care Dairy Consultant Name | Role | Phone | [...] | | | Metabolism | bypass | [address] | [address] | | | | | Hypovitamino | [address], | [address] | | | | | sis D [address] | [address] | [place], [place] | | | | | nutritional | [place], [place] | [address] | | | | | deficiency | [address] | Phone: | | | | | Other | Phone: | [phone] | | | | | protein-jose manuel | [phone] | Fax: | | | | | nick | Fax: | [phone] | | | | | malnutrition | [phone] | | | | | | Weight | | | | | | | gain | | | | | | | Procedures | | | | | | | CONSULT TO | | | | | | | ENDO | | | | | | | [address] | | | | | | | [address] | | | +--------+--------+ + + + [...] | | | [facility] | [place], [place] | Dx); Hypothyroidism; | | | | [address] | [address] | Essential | | | | [address] | [phone] | hypertension 401.9; | | | | [facility] | | 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 Gets primary care in [place], [place] ([facility] Cintron). Weight leveled out [...] replacement 08/2007 right knee Lumbar fusion 05/2008 L5-S2nqwaph with bone spur removals Appendectomy Cholecystectomy section [...] Hives Mainly in the legs Clindamycin Codeine Xitehik-Ghfygwvslz-Rxu-Caff Balance problems Fioricet W/Codeine (Yemrzqdslg-Kdzbmlcwwb-Zun-Cod) Keflex (Cephalexin) Morphine IM ( only in [...] Ly Allred MD R-2, Internal Medicine Pager: [phone] documented in this enco unter Plan of [...] | | If you are | | [place] | | | | screening for diabetes: [...] + | [facility] | [address] | [place] [address] | | | [place] | | | [...] [facility] | [address] | [place] [address] | | | SERVICES, SPECIAL | [place] [...] | + + + + + | [facility] | [address] | [place] [address] | | | SERVICES, CORE | PARK [...] | + + + + + | [facility] | [address] | [place] [address] | | | SERVICES, SPECIAL | [place]AN [...] by | | | | | | [address] | | | | | | Abdiaziz Morales, [facility],[place] | | | | | | [address] | | | | | | [phone][employer]. | | | | | | [facility], [facility], | | | | [...] [facility] | [address] | [place], [place] | | | [facility] | | [address] | | + + + + + [...] + + + + + | [facility] | [address] | [place] [address] | | | SERVICES, SPECIAL | PARK [...] + | [facility] | [address] | [place] [address] | | | [place] | | | [...]
--- OUTSIDE RECORDS SUMMARY | ~2019-12-13 | XMS | Encounter Summary ---
Demographics + + + | Address | [address] | | | [place] [address] | + + + | Home Phone [...] Providers + +------+ + | Care Trim Crew Supervisor Name | Role | Phone | + +------+ + | Petrona Thapa | PCP | | | MD | | | + +------+ + Reason for Visit + +--------+ + | Reason | Onset | Comments | | | Date | | + +--------+ + | Hip Pain | 10/07/ | | | | 2017 | | + +--------+ + Encounter Details +--------+ + + + + | Date | Type | Department | Care Team | Description | +--------+ + + + + | 10/07/ | Telephone | [facility] | Alanis, | Hip Pain | | 2017 | | MEDICINE [address] | MD Petrona | | | | | [place], | [address] [facility] | | | | | [place] [address] | [place] [address] | | | | | [phone] | [phone] | | | | | | | [...] Telephone Encounter - Maggie Montoya LPN - 10/07/2017 2:07 PM PDTPatient lives approx an h our from [facility]. Instructed to go to an urgent care or ER [facility] for evaluation. Not complaining of any other symptoms, only severe right hip pain, making it very difficult to ambulate. Ad vised that she needs to be evaluated. Patient understands and accepts. Message sent to ectronically signed by Maggie Montoya LPN at 10/07/2017 2:10 PM PDTTelephone Encounter - Juliane Grace - 10/07/2017 1:01 PM PDTPatient called stated she has right hip pain, unable t o walk. Patient is unsure what is causing the pain, would like an x-ray to be ordered, tomy rodriguez advisjennifer. documented in thi s encounter Plan of [...] | | | | | | [place] [address] | | | | | | [phone] | | | | | | | | +--------+---------+ + + + | 12/20/ | Office | Otolaryngology | Ulysses Genao MD | | | 2019 | Visit | | [address] | | | | | | [address] | | | | | | [place] [address] | | | | | | [phone] | | | | | | | | +--------+---------+ + + + | 02/15/ | Office | Internal Medicine | Alanis, | | | 2019 | Visit | | MD Petrona | | | | | | [address] [place] | | | | | | [place] [address] | | | | | | [phone] | | | | | | | | +--------+---------+ + + + documented as of this encounter Visit Diagnoses Not on filedocumented in this encounter"
--- OUTSIDE RECORDS SUMMARY | ~2019-12-13 | XMS | Encounter Summary ---
Demographics + + + | Address | [address] | | | [place] [address] | + + + | Home Phone [...] Team Providers + +------+ + | Care Photo Specialist Name | Role | Phone | [...] + | 03/02/ | Telephone | [facility] | Alanis, | Lab Results | | 2017 | | MEDICINE [address] | MD Petrona | | | | | [place], | [address] [facility] | | | | | [place] [address] | [place] [address] | | | | | [phone] | [phone] | | | | | | | [...] | | [facility] [address] | | | | | [address] [place] | | | | | | [place] [address] | | | | | | [phone] | | | | | | | | +--------+---------+ + + + | 12/20/ | Office | Otolaryngology | Ulysses Genao MD | | | 2019 | Visit | | [address] | | | | | | [address] | | | | | | [place] [address] | | | | | | [phone] | | | | | | | | +--------+---------+ + + + | 02/15/ | Office | Internal Medicine | Alanis, | | | 2019 | Visit | | MD Petrona | | | | | | [address] [place] | | | | | | [place] [address] | | | | | | [phone] | | | | | | | | +--------+---------+ + + + documented as of this encounter Visit Diagnoses Not on filedocumented in this encounter"
--- OUTSIDE RECORDS SUMMARY | ~2019-12-13 | XMS | Encounter Summary ---
Demographics + + + | Address | [address] | | | [place] [address] | + + + | Home Phone [...] Team Providers + +------+ + | Care Pond Supervisor Name | Role | Phone | [...] | [address] | | | | | unspecified | [address] | Ave | | | | | Encounter | [place], [place] | [place] | | | | | for | [address] | [address] | | | | | long-term | | Phone: | | | | | (current) | | [phone] | | | | | use of other | | Fax: | | | | | medications | | [phone] | | | | | LBP (low [...] | | +--------+--------+ + + + + Physical Therapy (Routine) +--------+--------+ + + + + | Status | Reason | Specialty | Diagnoses / | Referred By | Referred To | | | | | Procedures | Contact | Contact | +--------+--------+ + + + + | Closed | | Physical | Diagnoses | Paco, | Fili Pt Acidity Tester | | | | Therapy | Myalgia and | Rosi T, ANP | [facility] [address] | | | | | myositis, | [address] | | | | | unspecified | [address] | Mailcode: | | | | | LBP (low | [place], [place] | [facility] | | | | | back pain) | [address] | for [facility] | | | | | Chronic | | and Healing, | | | | | shoulder | | [address] | | | | | pain Muscle | | [place], [place] | | | | | strain | | [address] | | | | | Radicular | | Phone: | | | | | pain in left | | [phone] | | | | | arm Neck | | | | | | | pain | | | | | | | Procedures | | | | | | | PHYSICAL | | | | | | | THERAPY | | | | | | | REFERRAL | | | +--------+--------+ + + + + Reason for Visit + + + | Reason | Comments | + + + | New patient | | | consultation | | + + + | Whole Body Pain | | + + + Consultation (Routine) +--------+--------+ + + + + | Status | Reason | Specialty | Diagnoses / | Referred By | Referred To | | | | | Procedures | Contact | Contact | +--------+--------+ + + + + | Closed | | Pain | Diagnoses | Lamine, | Paco, | | | | Management | Chronic | Taqueria Strong NP | NIHARIKA Drake | | | | | neck pain | [address] | [address] | | | | | Low back | [address] | [address] | | | | | pain | [place], [place] | [place], [place] | | | | | | [address] | [address] | | | | | | Phone: | | | | | | | [phone] | | | | | | | Fax: | | | | | | | [phone] | | +--------+--------+ + + + + Encounter Details +--------+---------+ + + + | Date | Type | Department | Care Team | Description | +--------+---------+ + + + | 04/05/ | Office | [facility] Comprehensive | Rosi Antonio, | LBP (low back pain) | | 2012 | Visit | Pain Center at | ANP | (Primary Dx); | | | | [facility] | | Fibromyalgia | | | | [address] | | syndrome 729.1; | | | | Mailcode: CH15P | | Encounter for | | | | [place] [facility] | | Long-Term (Current) | | | | and Healing, | | Use of Opioids; | | | | | | Chronic Bilateral | | | | Floor [place], [place] | | Shoulder Pain; | | | | [address] | | Muscle Strain hips; | | | | [phone] | | Radicular pain in | | | | | | left arm; Neck pain | +--------+---------+ + + + Social History [...] + + + | Blood Pressure | 127/59 | 04/05/2013 8:17 AM | | | | | PDT | | + + + + + | Pulse | 73 | 04/05/2013 8:17 AM | | | | | PDT | | + + + + + | Temperature | - | - | | + + + + + | Respiratory Rate | 15 | 04/05/2013 8:17 AM | | | | | PDT | | + + + + + | Oxygen Saturation | 96% | 04/05/2013 8:17 AM | | | | | PDT | | + + + + + | Inhaled Oxygen | - | - | | | Concentration | | | | + + + + + | Weight | 101.6 kg (224 lb) | 04/05/2013 8:17 AM | | | | | PDT | | + + + + + | Height | 172.7 cm (5' 8") | 04/05/2013 8:17 AM | | | | | PDT | | + + + + + | Body Mass Index | 34.06 | 04/05/2013 8:17 AM | | | | | PDT | | + + + + + documented in this encounter Patient Instructions Patient Instructions Rosi Antonio, ANP - 04/05/2013 9:40 AM PDT Recommendations: Belinda and Silvana reviewed her history of chronic pain due to degenerative dis c disease and unconvertebral arthrosis of multiple levels of the cervical spine; post-reece ctomy pain, history of bilateral knee arthroplasty due to DJD, and fibromyalgia. She would l temo to avoid further back surgery. Her prior primary care physician moved away and she would like to be re-evaluated for available treatment options for her low back pain. We discussed the following treatment plan: 1. Diagnostic evaluation: I recommend she have a x-ray of her right hip. 2. Consult: I will refer her to pain psychology, Dr. Andres Ogden as she has worked with him be fore. This visit can be in tandem with her next pain clinic visit with Dr. Murali Montero. 3. Medication suggestions: She should continue her [...] I re commend she change to pregabalin. We suggest starting pregabalin (Lyrica) at 75 mg at night, then increase to twice a day. T he target dose is 150 - 600 mg/day. The dose can be adjusted upwards every 3 - 7 days. Isabell Lee was provided written instructions, we had a detailed PARQ discussion regarding this medication and its side effects, and she was instructed to call with any problems. 4. Procedure suggestions: We discussed epidural steroid injections, which she has had in t he past before her lumbar surgeries. She has short-term relief from these treatments. I woul d like her to return to see Dr. Murali Montero to discuss these treatment options. Consult to [facility] physical therapy: A supervised physical therapy evaluation and treatment eugenio santoyo is central to the management of leg pain, low back pain, neck pain, gait training. Thi s program will include aerobic conditioning, stretching and strengthening your core. I will place this referral today, This visit can be in tandem with pain psychology and clinic appoi ntments. Consider a trial of Spinal Cord Stimulation (SCS). I do not know if she is a candidate for this treatment option, I will have her return to the pain center to discuss her pain presen tation, current treatments and other options for her pain treatment. 5. Follow-up: Return appointment for [address] Murali Montero to discuss treatment options: either epidural steroid injections or spinal cord stimulator option. We suggested that Ms. Meehan discuss our consultation findings with her PCP, Sulaiman Whitlock MD and other involved health care providers. Thank you for this referral, it is my privilege to be part of Belinda's health care team. Pl ease free to contact me at any time if you have questions or concerns. NIHARIKA [facility]OS [facility] [address] Mail Code: [place] [address] documented in this encounter Progress Notes Rosi Antonio ANP - 04/05/2013 9:28 AM PDTFormatting of this note might be different fro m the original. [facility] Office Visit 04/05/2013 Belinda Meehan; ; : 1960 Ms. Meehan was referred for pain management consultation by Taqueria Raman NP [address] [place] [address] Chief Complaint Patient presents with New patient consultation Whole Body Pain History of Present Illness: Belinda Meehan is a 49 y.o. year-old female with a history of chronic pain due to degener ative disc disease and arthrosis of multiple levels of the cervical spine, bilateral knee pa in, history of left knee arthroplasty due to DJD, headaches and fibromyalgia. Belinda is here today for a follow up visit to review chronic pain management plan of care. She was last evaluated in the pain center by Miranda Lambert NP in 2009 and their treatment p lucia included: 1. Instructions given to taper off gabapentin 2. Order for [facility] neurology Dr. Taniya Guerrero if falls continue [...] of falls is found and episodes resolve She was treated with epidural steroid injections by Dr. Lit Cintron in [place] at the [facility] and had good relief from this therapy. Ms. Meehan describes her current pain as constant, sharp, dull, achy, burning and throbbin g. Her pain is made worse by bending backward, bending forward, climbing stairs, cold, exerc ise, lifting, sexual activity, sitting, standing, stressful situations, walking and work. H er pain is improved by bath/shower, heat, medications, meditation, physical therapy and ther apy pool. Ms. 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 Brief Pain Inventory: (ten= worst possible pain or complete interference) Right Now: 10 (04/05/13822) Least in 24 hours: 8 (04/05/13822) Worst in 24 hours: 10 (04/05/13822) Average: 9 (04/05/13822) % Relief (med/treat): 10 (04/05/13822) General Activity: 9 (04/05/13822) Mood: 10 (04/05/13822) Walking Ability: 9 (04/05/13822) Normal Work: 10 (04/05/13822) Relations with Others: 9 (04/05/13822) Enjoyment of Life: 9 (04/05/13822) Sexual Activity: 10 (04/05/13822) Sleep: 10 (04/05/13822) Past Medical History Diagnosis Date Chronic abdominal [...] replacement 08/2007 right knee Lumbar fusion 05/2008 & 2011 [id number] with bone spur removals Appendectomy Cholecystectomy section Hysterectomy Gastric bypass Mayra Robledonagajeannie wt 278 01/18 Paniculectomy Elbow surgery Family [...] Stroke Paternal Grandmother Stroke Paternal Grandfather History Alcohol Use No History Drug Use No History Social History Narrative No narrative on file Allergies Allergen Reactions Levaquin (Levofloxacin) Hives and Itching Amitriptyline Grand mal seizures Cipro (Ciprofloxacin) Clarithromycin Hives Mainly in the legs Clindamycin Codeine Hxpdhzv-Lfbeygfjem-Nxd-Caff Balance problems Fioricet W/Codeine (Oivnpbglui-Aqnqjwmjtv-Cvs-Cod) Keflex (Cephalexin) Morphine IM ( only in [facility]) made gut pain worse 08/27/06: Trial [...] daily. gabapentin 300 mg Oral Tablet Take 600 mg by mouth three times daily. levothyroxine 50 mcg Oral tablet Take 50 mcg by mouth once daily. methocarbamol 750 [...] mouth every four hours as n eeded. POTASSIUM CHLORIDE SR 20 MEQ TAB, PARTICLES/CRYSTALS [...] 1 drop once daily in the evening. No current facility-administered medications for this visit. Radiology/Diagnostic Tests: 01-31-2013 Cervical MRI: Neural foraminal narrowing secondary to posterolateral osteophytes or disc/osteophyte complex at the right C3-C4 level, right C4-C5 level and C5-C6 level. Rela tively midl narrowing of the upper central cervical spinal canal at the C1 arch level and C2 -C3 level, secondary to congenitially short pedicles. 01-31-2013: Thoracic MRI: Small subligamentous focal disc protrusion at the T5-T6 level, sma ller in size compared with 10/2010. Small subligamentous disc protrusion at the T-T2 level, n ew or slightly increased compared with 10/2010. No evidence of neural impingement. Small disc /osteophyte complex at T12-L1 stable. 01-31-2013: Lumbar MRI: Surgical changes of the mid and lower lumbar spine. New bilateral pe dicle screws are evident at L3 and L4 compared with 2011 exam. STIR images show evidenc e of bone marrow edema adjacent to the left pedicle screw at the L3 vertebral level. No abno rmal disc space fluid or paravertebral abnormality. Broad-based disc protrusions at several levels as described above. Neural foraminal narrowing at several levels as described above, most severe at the right L4-L5 and bilateral L5-S1 levels. As part of today's visit the [facility] new patient questionnaire was review ed. Please refer to this document for additional details of her current pain problem, PMH, PSH, FH, SH, and ROS. In the questionnaire, Ms. Meehan indicated that her goals and expectations from today's vi sit included the followin. What do you expect from our pain program? Help in coping with the pain 47. What types of treatment do you expect from your visits to the [facility] ? Don't know BP 127/59 | Pulse 73 | RR 15 | Ht 1.727 m (5' 8") | Wt 101.606 kg (224 lb) | SpO2 96% | BMI 34.07 kg/(m^2) ROS This data was entered by the MA, I have reviewed it and have no additions. Physical Exam Vitals reviewed. Constitutional: She is oriented to person, place, and time and well-developed, well-nourish ed, and in no distress. No distress. Patient is here today by herself. Using cane. Well-groomed and answering questions appropri ately. HENT: Head: Normocephalic and atraumatic. Right Ear: External ear normal. Left Ear: External ear normal. Mouth/Throat: Oropharynx is clear and moist. No oropharyngeal exudate. Adentulous. Thin hair. Eyes: Conjunctivae and EOM are normal. Pupils are equal, round, and reactive to light. Righ t eye exhibits no discharge. Left eye exhibits no discharge. No scleral icterus. Neck: Normal range of motion. Neck supple. No tracheal deviation present. No thyromegaly pr esent. Neck supple without masses or lymphadenopathy. Cardiovascular: Normal rate, regular rhythm, normal heart sounds and intact distal pulses. Exam reveals no gallop. No murmur heard. Pulmonary/Chest: Effort normal and breath sounds normal. No respiratory distress. She has n o wheezes. She has no rales. She exhibits no tenderness. Smoking 1/4 pack cigarettes a day. Trying to quit. Abdominal: Soft. Bowel sounds are normal. She exhibits no distension. There is no tendernes s. Musculoskeletal: She exhibits tenderness. She exhibits no edema. GAIT & STATION: symmetrical, right antalgic, broad based, cane and steady SPINE: physiologic curvature Cervical spine: Curvature: physiologic Cervical active range of motion in degrees: Flexion: 10; painful Extension: 5; painful Right rotation + extension: painful Left rotation + extension: painful Spurling's: Left: Negative Right: Negative Thoracic Spine Curvature: decreased kyphosis Lumbar curvature: physiologic Lumbar active range of motion in degrees: Flexion: 20; painful Extension: 0; painful Right rotation + extension: painful Left rotation + extension: painful Shoulders: Limited range of motion due to stiffness and pain. Joints are tender to palpatio n, no effusion or induration. Myofascial tenderness: Across shoulders bilaterally, along the spine, low back and buttock, bilateral posterior thigh muscles and forehead. Manual tender point survey: 09/30 manual tender points positive Lumbopelvic examination: Romeo's: Negative Lymphadenopathy: She has no cervical adenopathy. Neurological: She is alert and oriented to person, place, and time. She has normal strength , normal reflexes and intact cranial nerves. She displays normal reflexes. No cranial nerve deficit. She exhibits abnormal muscle tone. Coordination normal. GCS score is 15. Sensory examination: intact light touch bilaterally in upper extremities, intact light touc h bilaterally in lower extremities and intact pin bilaterally in upper extremities","intact pin bilaterally in lower extremities Allodynia: absent Hyperalgesia: absent Hyperpathia: absent Dysesthesia: absent Skin: Skin is warm and dry. No rash noted. She is not diaphoretic. No erythema. No pallor. Psychiatric: Memory, affect and judgment normal. Provides cogent, detailed medical history. Pleasant mood, affect. Denies depression or anxi ety. Ortho Exam Neurologic Exam Mental Status Oriented to person, place, and time. Cranial Nerves CN III, IV, Pupils are equal, round, and reactive to light. Extraocular motions are normal. Motor Exam Strength Strength 5/5 throughout. BP 127/59 | Pulse 73 | RR 15 | Ht 1.727 m (5' 8") | Wt 101.606 kg (224 lb) | SpO2 96% | BMI 34.07 kg/(m^2) Impressions/Discussion: For today's evaluation, I have included my personal review of Ms. Meehan's history and phy sical examination. I also used the following components in my medical decision making: Lab oratory studies reviewed. Radiology Reports reviewed. Patient Active Problem List Diagnosis Date Noted Falling 10/03/2009 Anal or Rectal Pain 10/05/2008 [...] 06/21/2008 Overview Note: Surgery 05/15/08 Dr Ricky Granett [facility] to get operative reports Osteopenia 08/24/2007 LBP (Low Back Pain) 03/31/2007 Encounter for Long-Term (Current) Use of Opioids 01/11/2007 Hypothyroidism 11/11/2006 Major Depressive Disorder, Recurrent Episode, Moderate 07/31/2006 Adjustment Disorder with Anxiety 07/31/2006 Iron Deficiency 03/09/2006 Metabolic syndrome X 250.80 Essential hypertension 401.9 Asthma 493.9 Impaired glucose tolerance 790.2 Fibromyalgia syndrome 729.1 Overview Note: <PROVIDER>DAVIDE LIZARRAGA Recommendations: Belinda and I reviewed her history of chronic pain due to degenerative dis c disease and unconvertebral arthrosis of multiple levels of the cervical spine; post-reece ctomy pain, history of bilateral knee arthroplasty due to DJD and fibromyalgia. She would li ke to avoid further back surgery. Her prior primary care physician moved away and she would like to be re-evaluated for available treatment options for her low back pain. We discussed the following treatment plan: 1. Diagnostic evaluation: I recommend she have a x-ray of her right hip. 2. Consult: I will refer her to pain psychology, Dr. Andres gOden as she has worked with him be fore. This visit can be in tandem with her next pain clinic visit with Dr. Murali Montero. 3. Medication suggestions: She should continue her [...] night, then increase to twice a day. Th e target dose is 150 - 600 mg/day. The dose can be adjusted upwards every 3 - 7 days. 4. Procedure suggestions: We discussed epidural steroid injections, which she has had in t he past before her lumbar surgeries and recently in [place]. She has short-term relief from the se treatments. I would like her to return to see Dr. Murali Montero to discuss these treatment options. Consult to [facility] physical therapy: A supervised physical therapy evaluation [...] the pain center to discuss her pain presen tation, current treatments and other options for her pain treatment with Dr. Murali Montero. 5. Follow-up: Return appointment for [address] Murali Montero to discuss treatment options: either epidural steroid injections or spinal cord stimulator option. We suggested that Ms. Meehan discuss our consultation findings with her PCP, Sulaiman Whitlock MD and other involved health care providers. Thank you for this referral, it is my privilege to be part of [facility] health care team. Pl ease free to contact me at any time if you have questions or concerns. I spent 30 minutes with the patient of which more than 50% was spent [id number] in [facility] pain questionnaire, medical record, consultation, discussion, addressing questions and counselling/education. [facility] [address]um [address] Mail Code: [place] [id number] mith, Maris Lopez MA - 04/05/2013 8:25 AM PDT Review of Systems Constitutional: Positive for chills and malaise/fatigue. HENT: Positive for headaches, hearing loss and neck pain. Eyes: Positive for blurred vision, double vision, pain, discharge and redness. Respiratory: Positive for cough. Sleep apnea Cardiovascular: Positive for chest pain, leg swelling and PND. HTN Gastrointestinal: Positive for heartburn, nausea, vomiting, abdominal pain, diarrhea and bl ood in stool. Genitourinary: Positive for urgency and frequency. Urinary incontinence Musculoskeletal: Positive for myalgias, back pain, joint pain and falls. Fracture Herniated disc Neurological: Positive for dizziness, tingling, tremors, sensory change, speech change, foc al weakness, loss of consciousness and weakness. Endo/Heme/Allergies: Bruises/bleeds easily. Thyroid disorder Psychiatric/Behavioral: The patient is nervous/anxious and has insomnia. All other systems reviewed and are negative. Physical Exam Ortho Exam Neurologic Exam docum ented in this encounter Plan of [...] | + + | Vilma Gibbons - 04/25/2013 10:20 AM PST | + + documented in this encounter Visit Diagnoses + + | Diagnosis | + + | LBP (low back pain) - Primary Lumbago | + + | Fibromyalgia syndrome 729.1 Mylagia and myositis, unspecified | + + | Encounter for Long-Term (Current) Use of Opioids Encounter for long-term (current) | | use of other medications | + + | Chronic Bilateral Shoulder Pain Pain in joint, shoulder region | + + | Muscle Strain hips Unspecified site of sprain and strain | + + | Radicular pain in left arm Neuralgia, neuritis, and radiculitis, unspecified | + + | Neck pain Cervicalgia | + + documented in this encounter
--- OUTSIDE RECORDS SUMMARY | ~2019-12-13 | XMS | Encounter Summary ---
Demographics + + + | Address | [address] | | | [place] [address] | + + + | Home Phone [...] Team Providers + +------+ + | Care Drilling Foreman Name | Role | Phone | [...] | | [facility] [address] | HEARING AIDE TECHNICIAN [address] | | | | | [place] | , [address] | | | | | Mailcode: Center | [place], [place] | | | | | [facility] and | [address] | | | | | Healing, [address] | [phone] | | | | | [place], [place] | | | | | | [address] | | | | | | [phone] | | | +--------+ + + + [...]
--- OUTSIDE RECORDS SUMMARY | ~2019-12-13 | XMS | Encounter Summary ---
Demographics + + + | Address | [address] | | | [place] [address] | + + + | Home Phone [...] Providers + +------+ + | Care Artificial Foliage Arranger Name | Role | Phone | + +------+ + | Pedrito Gutierrez MD | PCP | | + +------+ + Reason for Visit + + + | Reason | Comments | + + + | Lab findings, | labs done on 07/01/07 | | teaching, guidance, | | | and counseling | | + + + Encounter Details +--------+ + + + + | Date | Type | Department | Care Team | Description | +--------+ + + + + | 07/07/ | Telephone | [facility] | Chris Padgett, | Lab findings, | | 2007 | | [place] [address] | [address] | teaching, guidance, | | | | Ave Mailcode: [facility] | [address] | and counseling (labs | | | | [facility] | [place], [place] | done on 07/01/07) | | | | and Healing, | [address] | | | | | [facility] | [phone] | | | | | [place], [place] | | | | | | [address] | | | | | | [phone] | | | +--------+ + + + [...]
--- OUTSIDE RECORDS SUMMARY | ~2019-12-13 | XMS | Encounter Summary ---
Demographics + + + | Address | [address] | | | [place] [address] | + + + | Home Phone [...] Team Providers + +------+ + | Care Nitrating Acid Mixer Name | Role | Phone | [...] Specialty | Physical | Diagnoses | | [facility] | | | Services | Therapy | Other | [facility] | HOSPITAL | | | Required | | idiopathic | i, | PHYSICAL | | | | | scoliosis, | Sulaiman-Russell | THERAPY [address] | | | | | lumbar | , [address] | [place] | | | | | region | [address] | [place], [place] | | | | | Chronic | [place], | [address] | | | | | bilateral | [place] | Phone: | | | | | low back | [address] | [phone] | | | | | pain with | Phone: | Fax: | | | | | bilateral | [phone] | [phone] | | | | | sciatica | Fax: | | | | | | Procedures | [phone] | | | | | | 07/20 - | | | | | | | PENDING | | | +--------+ + + + + + Reason for Visit +--------+ + | Reason | Comments | +--------+ + | Other | can not get warm, | +--------+ + Encounter Details +--------+---------+ + + + | Date | Type | Department | Care Team | Description | +--------+---------+ + + + | 07/18/ | Office | [facility] | Alanis, | Chronic bilateral | | 2020 | Visit | MEDICINE [address] | MD Petrona | low back pain with | | | | [address] [place], | [address] [facility] | bilateral sciatica | | | | [place] [address] | [place] [address] | (Primary Dx); Other | | | | [phone] | [phone] | idiopathic | | | | | | scoliosis, lumbar | | | | | | region; Acute pain | | | | | | of right shoulder; | | | | | | Acquired | | | | | | hypothyroidism | +--------+---------+ + + + Social History [...] + + + | Blood Pressure | 104/56 | 07/18/2019 9:10 AM | | | | | PST | | + + + + + | Pulse | 61 | 07/18/2019 9:10 AM | | | | | PST | | + + + + + | Temperature | 36.6 C (97.9 F) | 07/18/2019 9:10 AM | | | | | PST | | + + + + + | Respiratory Rate | 18 | 07/18/2019 9:10 AM | | | | | PST | | + + + + + | Oxygen Saturation | 97% | 07/18/2019 9:10 AM | | | | | PST | | + + + + + | Inhaled Oxygen | - | - | | | Concentration | | | | + + + + + | Weight | 87.4 kg (192 lb 10.9 | 07/18/2019 9:10 AM | | | | oz) | PST | | + + + + + | Height | - | - | | + + + + + | Body Mass Index | 29.3 | 01/17/2019 9:53 AM | | | | | PDT | | + + + + + documented in this encounter Progress Notes Petrona Thapa MD - 07/18/2019 9:00 AM PSTFormatting of this note might be d ifferent from the original. CHIEF COMPLAINT Chief Complaint Patient presents with Other can not get warm, HPI Belinda Meehan is a 59 y.o. y/o female who presents today for several issues: Patient recently did an MRI in [place], [place], after which she had a steroid injection in her tho racic spine for a bulging disc and chronic pain. So far it has helped just a little bit. Sh jennifer complains of not being bale to sleep, she sleeps in a recliner chair, as she cannot lay do wn without pain. She would like to try pt for back pain. She complains of being cold all the time, even when it is hot outside. She takes levothyro xine for hypothyroidism. She had shoulder surgery about 1 month ago. She has sharp muscle pain on right arm, she has not started physical therapy as the therapist was out sick. She has been dropping things ca use of the pain. No hematoma. ASSESSMENT & PLAN 1. Chronic bilateral low back pain with bilateral sciatica - Physical Therapy - Ambulatory Referral; Future 2. Other idiopathic scoliosis, lumbar region - Physical Therapy - Ambulatory Referral; Future 3. Acute pain of right shoulder -She does not have any alarming signs on exam suggesting infection or muscle rupture or oth er major issues and I advised her to talk to her surgeon and to follow with physical therapy starting tomorrow as above. 4. Acquired hypothyroidism - TSH; Future -Continue current dose of levothyroxine RELEVANT LABS TSH (uIU/mL) Date Value 07/18/2019 2.83 11/15/2018 2.40 11/17/2017 0.52 REVIEW OF SYSTEMS Constitutional: No Weight Change, [...] Temperature Intolerance. PHYSICAL EXAM VITAL SIGNS: BP 104/56 | Pulse 61 | Temp 36.6 C (97.9 F) (Temporal) | Resp 18 | Wt 87.4 kg (192 lb 10.9 oz) | LMP (LMP Unknown) | SpO2 97% | BMI 29.30 kg/m Constitutional: Well developed, No acute distress, [...] masses, No HSM, no masses. Skin: Warm, No erythema, No rash. Musculoskeletal: Good range [...] Common migraine COPD (chronic obstructive pulmonary disease) ([facility]) Depression Diarrhea Dumping syndrome Fall at home Fatigue fracture of vertebra Fibromyalgia Full dentures GERD (gastroesophageal reflux disease) Glaucoma Hyperparathyroidism ([facility]) Hypothyroidism IBS (irritable bowel syndrome) Idiopathic scoliosis Leg edema Low back pain Lumbar postlaminectomy syndrome Lumbar radiculopathy primarily right 01/04/2015 Meniere syndrome Migraine with aura Migraines Muscle cramping Muscle spasm Myalgia Nausea Nonalcoholic hepatosteatosis Obesity Opioid dependence ([facility]) Orthostatic hypotension OLIVER (obstructive sleep apnea) Osteoarthritis, generalized Osteopenia Osteoporosis Palpitations Peripheral neuropathy Rheumatoid arthritis ([facility]) Right arm pain 01/04/2015 RLS (restless legs syndrome) S/P lumbar fusion 01/04/2015 Scoliosis Sleep apnea Spondylosis with myelopathy, lumbar region Stroke ([facility]) Syncope Tremor Type II or [...] Last attempt to quit: 04/15/2014 Years since quittin.2 Smokeless tobacco: Never Used Tobacco comment: stopped smoking Substance and Sexual Activity Alcohol use: No Alcohol/week: 0.0 standard drinks Drug use: No Sexual activity: Never SURGICAL HISTORY Past Surgical History: Procedure Laterality Date ADENOIDECTOMY APPENDECTOMY BREAST LUMPECTOMY Left 2002 CARPAL TUNNEL RELEASE 2002 SECTION CHOLECYSTECTOMY 2004 COLONOSCOPY N/A 12/18/2017 Procedure: COLONOSCOPY; Surgeon: Luther Brito MD; Location: [facility] MEDICAL PROCEDURE UNIT DILATION AND CURETTAGE OF UTERUS ELBOW SURGERY FINGER TRIGGER RELEASE 2003 FINGER TRIGGER RELEASE 2010 GASTRIC BYPASS SURGERY 2004 HYSTERECTOMY 05/14/1980 JOINT REPLACEMENT Bilateral 2006 2008 KNEE ARTHROSCOPY 2005 LAPAROSCOPY 01/27/2015 LAPAROTOMY 2008 ROTATOR CUFF REPAIR 2005 SPINE SURGERY TONSILLECTOMY 1964 UPPER GASTROINTESTINAL ENDOSCOPY N/A 12/18/2017 Procedure: EGD; Surgeon: Luther Brito MD; Location: [facility] MEDICAL PROCEDURE UNIT CURRENT MEDICATIONS [...] ours as needed for Pain. Incontinence Supplies [facility] As directed 100 each 11 [...] Days Morelia Thapa MD 1,000 mcg at 07/18/19 0913 ALLERGIES Allergies Allergen Reactions Ensure Diarrhea Food Diarrhea Lactose Mmsnxxbnpa-Gtz-Sjyc-Codeine Other (See Comments) Balance problems Codeine Sulfate Nausea Only Food Allergy Formula Diarrhea Ensure Levofloxacin Hives, Itching and Rash Butalbital Ropinirole Amitriptyline Hcl Other (See Comments) Confused and questionable for seizures Pmxiqigprp-Awhz-Gyexykef Rash duplicate Bgjkiuwdfe-Reca-Mxgtvbaj Hives and Rash Cephalexin Hives Ciprofloxacin Hives and Rash Clarithromycin Hives and Rash Clindamycin Hcl Hives and Rash Doxycycline Rash Duloxetine Other (See Comments) Migraines and nausea Ketorolac Hives Levofloxacin Hives and Rash Morphine Swelling Penicillins Hives and Rash Ropinirole Hcl Hives Sulfamethoxazole-Trimethoprim Hives and Rash Tramadol Hcl Nausea Only FOLLOW-UP No follow-ups on file. Notes: 1. Parts of this documentwere created using Indix speech recognition software. As a resu lt, there may be unintended word spelling errors. Every attempt was made to correct the di ctation. 2. I, Sulaiman Thapa MD, personally provided the services described in this documen tation, as scribed by DUC Ybarra, in my presence, and it is both accurate an d complete. Sulaiman Thapa MD Electronically signed by Petrona Thapa MD at 2019 1:02 PM PSTdocumented in this encounter Plan of [...] | | | | | [place] [address] | | | | | | [phone] | | | | | | | | +--------+---------+ + + + | 12/20/ | Office | Otolaryngology | Ulysses Genao MD | | | 2019 | Visit | | [address] | | | | | | [address] [place] | | | | | | [place] [address] | | | | | | [phone] | | | | | | | | +--------+---------+ + + + | 02/15/ | Office | Internal Medicine | Alanis, | | | 2019 | Visit | | MD Petrona | | | | | | [address] | | | | | | [place] [address] | | | | | | [phone] | | | | | | | | +--------+---------+ + + + + + +--------+ + + | Name | Type | Priori | Associated Diagnoses | Order Schedule | | | | ty | | | + + +--------+ + + | Physical Therapy - | Outpatient | Routin | Other idiopathic | Expected: | | Ambulatory Referral | Referral | e | scoliosis, lumbar | 07/18/2019, Expires: | | | | | region Chronic | 07/18/2020 | | | | | bilateral low back | | | | | | pain with bilateral | | | | | | sciatica | | + + +--------+ + + documented as of this encounter Results TSH (07/18/2019 10:01 AM PST) + +-------+ + + + | Component | Value | Ref Range | Performed | Pathologist | | | | | At | Signature | + +-------+ + + + | TSH | 2.83 | 0.55 - 4.78 | [facility] | | | | | uIU/mL | [facility] | | | | [...] [address] | [place] | [phone] | | [facility] | | [address] | | | - LABORATORY | | | | + + + + + documented in this encounter Visit Diagnoses + + | Diagnosis | + + | Chronic bilateral low back pain with bilateral sciatica - Primary | + + | Other idiopathic scoliosis, lumbar region | + + | Acute pain of right shoulder | + + | Acquired hypothyroidism Unspecified hypothyroidism | + + documented in [...] | | | First dose on [facility] 10/15/17 at 1215 | | | [...]
--- OUTSIDE RECORDS SUMMARY | ~2019-12-13 | XMS | Encounter Summary ---
Demographics + + + | Address | [address] | | | [place] [address] | + + + | Home Phone [...] Team Providers + +------+ + | Care Foundation Stage Teacher Name | Role | Phone | [...]
--- OUTSIDE RECORDS SUMMARY | ~2019-12-13 | XMS | Encounter Summary ---
Demographics + + + | Address | [address] | | | [place] [address] | + + + | Home Phone [...] Team Providers + +------+ + | Care Crystal Syrup Maker Name | Role | Phone | [...] | | | [facility] | [place], [place] | | | | | [address] | [address] | | | | | [address] | [phone] | | | | | [facility] | | | | | | Physician's | | | | | | Pavilion [place], | | | | | | [place] [address] | | | | | | [phone] | | | +--------+ + + + [...]
--- OUTSIDE RECORDS SUMMARY | ~2019-12-13 | XMS | Encounter Summary ---
Demographics + + + | Address | [address] | | | [place] [address] | + + + | Home Phone [...] Team Providers + +------+ + | Care Nailer Operator Name | Role | Phone | [...] + + | 08/10/ | Telephone | [facility] | Rosi Antonio, | Fall Ground Level | | 2013 | | Pain Center at | ANP | | | | | [facility] | | | | | | [address] | | | | | | Mailcode: CH15P | | | | | | [facility] | | | | | | and Healing, | | | | | | Building | | | | | | Floor [place], [place] | | | | | | [address] | | | | | | [phone] | | | +--------+ + + + [...]
--- OUTSIDE RECORDS SUMMARY | ~2019-12-13 | XMS | Encounter Summary ---
Demographics + + + | Address | [address] | | | [place] [address] | + + + | Home Phone [...] Providers + +------+ + | Care Senior Software Test Engineer Name | Role | Phone | + +------+ + | Petrona Thapa | PCP | | | MD | | | + +------+ + Reason for Visit +---------+--------+ + | Reason | Onset | Comments | | | Date | | +---------+--------+ + | Results | 01/05/ | | | | 2017 | | +---------+--------+ + Encounter Details +--------+ + + + + | Date | Type | Department | Care Team | Description | +--------+ + + + + | 01/05/ | Telephone | [facility] | Luther Brito MD | Results | | 2017 | | GASTROENTEROLOGY | [address] | | | | | [address] [facility] | [place], [place] | | | | | [address] [place], [place] | [address] | | | | | [address] | [phone] | | | | | [phone] | | | +--------+ + + + [...] 01/05/2018 1:20 PM PDTSpoke with patient ovi napoleon egd/colon results and Dr. Brito recommendation for [...] | | | | | [place] [address] | | | | | | [phone] | | | | | | | | +--------+---------+ + + + | 12/20/ | Office | Otolaryngology | Ulysses Genao MD | | | 2019 | Visit | | [address] | | | | | | [address] [place] | | | | | | [place] [address] | | | | | | [phone] | | | | | | | | +--------+---------+ + + + | 02/15/ | Office | Internal Medicine | Alanis, | | | 2019 | Visit | | MD Petrona | | | | | | [address] [place] | | | | | | [place] [address] | | | | | | [phone] | | | | | | | | +--------+---------+ + + + documented as of this encounter Visit Diagnoses Not on filedocumented in this encounter"
--- OUTSIDE RECORDS SUMMARY | ~2019-12-13 | XMS | Encounter Summary ---
Demographics + + + | Address | [address] | | | [place] [address] | + + + | Home Phone [...] Team Providers + +------+ + | Care Photoengraving Apprentice Name | Role | Phone | + +------+ + | Pedrito Gutierrez MD | PCP | | + +------+ + Encounter Details +--------+---------+ + + + | Date | Type | Department | Care Team | Description | +--------+---------+ + + + | 08/26/ | Office | Comprehensive Pain | Nathalia Arora | Spondylosis with | | 2006 | Visit | [facility] | [address] | Myelopathy, Lumbar | | | | [place] [address] [place], | Region; Herniated | | | | [place] Mailcode: | [place] [address] | Lumbar | | | | CH15P [place] for | | Intervertebral Disc | | | | Health and Healing, | | L4-5; Neck Pain; | | | | | | Fibromyalgia | | | | Floor [place], [place] | | syndrome 729.1 | | | | [address] | | | | | | [phone] | | | +--------+---------+ + + + [...] Medicare Progress Note Date: 08/26/2006 Belinda Meehan [id number]. 1960 Start of Care: 06/23/2006 Referring Provider: [...] and when she is finished at the [facility] with physical therapy advised to become involved [...] + + +--------+ + + | [facility] | Procedures | Routin | Spondylosis [...]
--- OUTSIDE RECORDS SUMMARY | ~2019-12-13 | XMS | Encounter Summary ---
Demographics + + + | Address | [address] | | | [place] [address] | + + + | Home Phone [...] | | + + +---------+ + | aMrco Antonio Wells | ECON | Unknown | | + + +---------+ + Care Team Providers + +------+ + | Care Para Machine Operator Name | Role | Phone [...] + | 10/05/ | Telephone | Orthopaedics | Ramon Ibarra, | MRI Results | | 2006 | | [facility] [place] | [address] [place] | | | | | for [facility] and | [place], [place] | | | | | Healing [address] | [address] | | | | | Ave Mailcode: | [phone] | | | | | CH12A [facility] | | | | | | Health and Healing, | | | | | | [facility] | | | | | | [place], [place] | | | | | | [address] | | | | | | [phone] | | | +--------+ + + + [...]
--- OUTSIDE RECORDS SUMMARY | ~2019-12-13 | XMS | Encounter Summary ---
Demographics + + + | Address | [address] | | | [place] [address] | + + + | Home Phone [...] Providers + +------+ + | Care Boilermaker Central Steam Plant Name | Role | Phone | [...] Rd | | | | | | [place], [place] | | | | | | [address] | | | +--------+ + + + [...] of this encounter Progress Notes Interface, Director Content Marketing In - 03/12/2007 2:28 AM PDT [id number] GEOVANNI [place] [id number] Clinic Date: 02/23/2007 Clinic: Endocrinology Subjective: Belinda [...] performed next Thursday, March 01, 2007, in [place]. The right knee will be replaced in [...] patch 25 mcg for 72 hours. 2. [place]/acetaminophen 10 mg/325 mg, 1 every 6 hours [...] months. Beto Meeks M.D. PD / HS [id number] / [id number] / [id number] / [id number] cc: Pedrito Gutierrez M.D. [address] [place] [address] Chris Padgett M.D. Department of Surgery, [facility] Electronically signed by Beto Meeks 03-11-2007 04:41:13 PM nterface, Director Content Marketing In - 03/12/2007 2:28 AM PDT [id number] GEOVANNI SKELTON J [id number] Clinic Date: 02/23/2007 Clinic: Endocrinology Belinda Meehan [...] her primary care provider, Dr. Gutierrez in [place]. She had a followup eye exam today, [...] replacement next Thursday (in 6 days) in [place], [place]. The right knee replacement tentatively will [...] as needed. Beto Meeks M.D. / SHARIF [id number] / [id number] / [id number] / [id number] cc: Pedrito Gutierrez M.D. [address] [place] [address] Joanna Arshad M.D. Electronically signed by Beto Meeks 03-11-2007 04:41:08 PM documented in this encounter Plan of Treatment Not on filedocumented as of this encounter Visit Diagnoses Not on filedocumented in this encounter"
--- OUTSIDE RECORDS SUMMARY | ~2019-12-13 | XMS | Encounter Summary ---
Demographics + + + | Address | [address] | | | [place] [address] | + + + | Home Phone [...] | | + + +---------+ + | rSee Wells | ECON | Unknown | | + + +---------+ + | Marco Antonio Wells | ECON | Unknown | | + + +---------+ + Care Team Providers + +------+ + | Care Suit Attendant Name | Role | Phone | [...] Description | +--------+--------+ + + + | 05/01/ | Refill | [facility] | Alanis, | Medication Refill | | 2017 | | MEDICINE [address] | MD [place]ron[place] | | | | | [place], | [address] [facility] | | | | | [place] [address] | [place] [address] | | | | | [phone] | [phone] | | | | | | | [...] | [facility] [address] | | | | | | ST [place] | | | | | | [place] [address] | | | | | | [phone] | | | | | | | | +--------+---------+ + + + | 12/20/ | Office | Otolaryngology | Ulysses Genao MD | | | 2019 | Visit | | [address] | | | | | | [address] [place] | | | | | | [place] [address] | | | | | | [phone] | | | | | | | | +--------+---------+ + + + | 02/15/ | Office | Internal Medicine | Alanis, | | | 2019 | Visit | | MD [place] | | | | | | [address] [place] | | | | | | [place] [address] | | | | | | [phone] | | | | | | | | +--------+---------+ + + + documented as of this encounter Visit Diagnoses Not on filedocumented in this encounter"
--- OUTSIDE RECORDS SUMMARY | ~2019-12-13 | XMS | Encounter Summary ---
Demographics + + + | Address | [address] | | | [place] [address] | + + + | Home Phone [...] Team Providers + +------+ + | Care Postbed Stitcher Name | Role | Phone | [...] Densitometry | | MD Beto | Density [facility] | | | | | Osteoporosis | [address] | [address] | | | | | Procedures | Ave | Naeem Mcrae | | | | | CONSULT TO | [place], [place] | Rd Mailcode: | | | | | BONE | [address] | [address] | | | | | DENSITOMETRY | Phone: | [address] | | | | | | [phone] | [place], [place] | | | | | | Fax: | [address] | | | | | | [phone] | Phone: | | | | | | | [phone] | | | | | | | Fax: | | | | | | | [phone] | +--------+--------+ + + + + Encounter Details +--------+---------+ + + + | Date | Type | Department | Care Team | Description | +--------+---------+ + + + | 08/23/ | Office | Endocrinology, | Sjh, Bmd Dexa | Other Osteoporosis | | 2007 | Visit | Diabetes and | [address] | (Primary Dx); | | | | Clinical Nutrition | [facility], | Symptomatic | | | | [address] | [place] [address] | Menopausal or Female | | | | [facility] Mailcode: | | Climacteric States; | | | | [address] | | Disorder of Bone | | | | [facility], [place] | | and Cartilage, | | | | [address] | | Unspecified | | | | [phone] | | | +--------+---------+ + + + [...]
--- OUTSIDE RECORDS SUMMARY | ~2019-12-13 | XMS | Encounter Summary ---
Demographics + + + | Address | [address] | | | [place] [address] | + + + | Home Phone [...] Providers + +------+ + | Care Air Gun Operator Name | Role | Phone | [...] + + | 09/23/ | Office | [facility] | Lou Molinae, | Spondylosis with | | 2006 | Visit | Pain Center at | ANP | Myelopathy, Lumbar | | | | [facility] | | Region; Herniated | | | | [address] | | Lumbar | | | | Mailcode: CH15P | | Intervertebral Disc | | | | [place] for [facility] | | L4-5; Right shoulder | | | | and Healing, | | rotator cuff | | | | Building | | strain; DJD | | | | Floor [place], [place] | | (Degenerative Joint | | | | [address] | | Disease) of Left | | | | [phone] | | Knee; Migraine | | | [...] 72 hours on schedule 2. Continue with Tell 10/325 1 tablet three times per day [...] Belinda Meehan is a 46 y.o. female [facility] Comprehensive Pain Center Return Visit Chief [...] 72 hours on schedule 2. Continue with Tell 10/325 1 tablet three times per day as needed for increased pain wit h activity. 3. Continue with Trileptal 150mg, 1 tablet twice a day 4. Continue with PT and psychology as scheduled 5. Follow up with Delfina Molina in 4 weeks or sooner if needed. 6. Continue with orthopedic and neurology evaluations as scheduled DELFINA MOLINA [facility] Comprehensive Pain Center Mail code CH 4P [place] [facility] and [address] [address] Ty Omalley - 9:28 AM [...] Yes , Fentanyl patch documented in this [facility] Plan of Treatment Not on filedocumented [...]
--- OUTSIDE RECORDS SUMMARY | ~2019-12-13 | XMS | Encounter Summary ---
Demographics + + + | Address | [address] | | | [place] [address] | + + + | Home Phone [...] | Neurology | Diagnoses | [place], | [place], | | | | | Migraine | NIHARIKA Jean | Merari Lopez MD | | | | | headache | [address] | | | | | | Procedures | [address] [place] | | | | | | CONSULT TO | [place], [place] | | | | | | NEUROLOGY | [address] | | +--------+--------+ + + + + [...] | (Primary Dx); | | | | [facility] | | Migraine Headache; | | [...] strain; | | | | Floor [facility] [place] | | Spondylosis with | | | | [address] | | Myelopathy, Lumbar | | | | [phone] | | Region; Herniated | | | [...] orthopedic surgical workup 3. Schedule Neurology evaluation [facility] order placed for Dr. Merari Mittal MD 4. Follow up 11/11/06 documented in this encounter Progress Notes Delfina Molnia - 10/23/2006 1:20 PM PDTFormatting of this note might be different from th e original. 10/23/2006 Belinda Meehan is a 46 y.o. female [facility] Comprehensive Pain Center Return Visit Chief Complaint: Chief Complaint Patient presents with Pain low back RLE History of Present Illness: Belinda Meehan is a 46 y.o. year-old female with a history of chronic pain due to multiple pain complaints. eBlinda Barnes is here today for a follow [...] car. She has not been seeing the [facility] PT , await ing the surgical plan for her left knee. MRI done, ordered by Dr. Ibarra who referred to Dr. Angel Morales for surgical opinion, scheduled for 10/28/06. She continues to see Dr. Alin adames at [facility] and reports benefit and would like to nelly salude she has two more scheduled visits. She reports Dr. Woodson referred her to neurologist locally for her migraine assessment how ever not being scheduled due to insurance [place] barriers. She is interested in being referred to a Dr. Merari Mittal [facility] neurlogy whom she has heard works with [...] Collection Time Resulting Agency 10/05/2006 9:20 AM [facility] DEPARTMENT OF RADIOLOGY Component Results MR KNEE [...] the free margin and undersurface of the broadcast transmitter operator horn of the medial meniscus suspicious [...] the left knee 3. Schedule Neurology evaluation [facility] order placed for Dr. Merari Mittal MD 4. Follow up 11/11/06 to reivew pain management 5. Cntinue with PT and psychology as scheduled DELFINA MLOINA [facility] Mail code CH 4P [address] [address] iAgustin maciasndy - 10/23 12:47 [...]
--- OUTSIDE RECORDS SUMMARY | ~2019-12-13 | XMS | Encounter Summary ---
Demographics + + + | Address | [address] | | | [place] [address] | + + + | Home Phone [...] Team Providers + +------+ + | Care Journalists And Other Writers Name | Role | Phone | + [...] + + | 06/25/ | Telephone | [facility] | Alanis, | Illness | | 2017 | | MEDICINE [address] | MD Petrona | | | | | [place], | [address] [facility] | | | | | [place] [address] | [place] [address] | | | | | [phone] | [phone] | | | | | | | [...] at an urgent care or ER in [facility]. Patient understands and accepts. notified of [...] | | | | | [place] [address] | | | | | | [phone] | | | | | | | | +--------+---------+ + + + | 12/20/ | Office | Otolaryngology | Ulysses Genao MD | | | 2019 | Visit | | [address] | | | | | | [address] [place] | | | | | | [place] [address] | | | | | | [phone] | | | | | | | | +--------+---------+ + + + | 02/15/ | Office | Internal Medicine | Alanis, | | | 2019 | Visit | | MD Petrona | | | | | | [address] [place] | | | | | | [place] [address] | | | | | | [phone] | | | | | | | | +--------+---------+ + + + documented as of this encounter Visit Diagnoses Not on filedocumented in this encounter"
--- OUTSIDE RECORDS SUMMARY | ~2019-12-13 | XMS | Encounter Summary ---
Demographics + + + | Address | [address] | | | [place] [address] | + + + | Home Phone [...] Team Providers + +------+ + | Care Handy Man Name | Role | Phone | + +------+ + PCP | Unavailable | + +------+ + Encounter Details +--------+ + + + + | Date | Type | Department | Care Team | Description | +--------+ + + + + | 08/11/ | Hospital | [facility] | Ruben Tobias | | | 2001 | Encounter | MED CTR SLEEP | MD Raji [address] | | | | | [place] [address] | [address] [facility] | | | | | [place], [place] | [place] [address] | | | | | [address] | [phone] | | | | | [phone] | | | +--------+ + + + [...] [facility] [address] | | | | | | [address] [place] | | | | | | [place] [address] | | | | | | [phone] | | | | | | | | +--------+---------+ + + + | 12/20/ | Office | Otolaryngology | Ulysses Genao MD | | | 2019 | Visit | | [address] | | | | | | [address] [place] | | | | | | [place] [address] | | | | | | [phone] | | | | | | | | +--------+---------+ + + + | 02/15/ | Office | Internal Medicine | Alanis, | | | 2019 | Visit | | MD Petrona | | | | | | [address] [place] | | | | | | [place] [address] | | | | | | [phone] | | | | | | | | +--------+---------+ + + + documented as of this encounter Visit Diagnoses Not on filedocumented in this encounter"
--- OUTSIDE RECORDS SUMMARY | ~2019-12-13 | XMS | Encounter Summary ---
Demographics + + + | Address | [address] | | | [place] [address] | + + + | Home Phone [...] Providers + +------+ + | Care Traffic Lieutenant Name | Role | Phone | [...] + | 12/14/ | Refill | [facility] | Alanis, | Medication Refill | | 2018 | | MEDICINE [address] | MD Petrona | | | | | [place], | [address] [place] | | | | | [place] [address] | [place] [address] | | | | | [phone] | [phone] | | | | | | | [...] | | [facility] [address] | | | | | | ST [place] | | | | | | [place] [address] | | | | | | [phone] | | | | | | | | +--------+---------+ + + + | 12/20/ | Office | Otolaryngology | Ulysses Genao MD | | | 2019 | Visit | | [address] | | | | | | [address] [place] | | | | | | [place] [address] | | | | | | [phone] | | | | | | | | +--------+---------+ + + + | 02/15/ | Office | Internal Medicine | Alanis, | | | 2019 | Visit | | MD Petrona | | | | | | [address] [place] | | | | | | [place] [address] | | | | | | [phone] | | | | | | | | +--------+---------+ + + + documented as of this encounter Visit Diagnoses Not on filedocumented in this encounter"
--- OUTSIDE RECORDS SUMMARY | ~2019-12-13 | XMS | Encounter Summary ---
Demographics + + + | Address | [address] | | | [place] [address] | + + + | Home Phone [...] Providers + +------+ + | Care Electrical Software Engineer Name | Role | Phone [...] | | 2006 | Visit | Center [facility] | [address] | Pain; Cervical Pain; | | | | [place] [place], | Pain in Joint, Site | | | | [address] Mailcode: | [place] [address] | Unspecified; | | | | [facility] [place] [facility] | | Depression | | | | Health and Healing, | | | | | | Building | | | | | | Floor [place], [place] | | | | | | [address] | | | | | | [phone] | | | +--------+---------+ + + + [...] EVALUATION NOTE Date: 06/23/2006 Name: Belinda Meehan [id number] y.o. female Start of Care: 06/23/2005 [...] the last few gregory hs. Handedness: right [place]: [place], [place] Chief Complaint: Headaches and cervical pain, bilateral [...] HX SALPINGO-OOPHORECTOMY COLONOSCOPY Comment: 03/2006 HX TONSILLECTOMY NC D&C AFTER DELIVERY NC INJECT TRIGGER POINT, 1 OR 2 Medications: [...] + + +--------+ + + | NC PHYS THERAPY | Procedures | Routin | [...]
--- OUTSIDE RECORDS SUMMARY | ~2019-12-13 | XMS | Encounter Summary ---
Demographics + + + | Address | [address] | | | [place] [address] | + + + | Home Phone [...] Team Providers + +------+ + | Care Custom Framing Specialist Name | Role | Phone | [...] Rd | | | | | | [place], [place] | | | | | | [address] | | | +--------+ + + + [...]
--- OUTSIDE RECORDS SUMMARY | ~2019-12-13 | XMS | Encounter Summary ---
Demographics + + + | Address | [address] | | | [place] [address] | + + + | Home Phone [...] Team Providers + +------+ + | Care Bias Cutter Helper Name | Role | Phone | + +------+ + | Pedrito Gutierrez MD | PCP | | + +------+ + Encounter Details +--------+ + + + + | Date | Type | Department | Care Team | Description | +--------+ + + + + | 04/17/ | Telephone | [facility] Division of | Carlos Arreola, | | | 2005 | | Gastroenterology/Hep | [address] | | | | | atology [address] | | | | | [address] | [place] [address] | | | | | Mailcode: PV310 | [phone] | | | | | Physician's Sharmila | | | | | | [address] | | | | | | [place], [place] | | | | | | [address] | | | | | | [phone] | | | +--------+ + + + [...]
--- OUTSIDE RECORDS SUMMARY | ~2019-12-13 | XMS | Encounter Summary ---
Demographics + + + | Address | [address] | | | [place] [address] | + + + | Home Phone [...] Providers + +------+ + | Care Front Load Trash Truck Driver Name | Role | Phone [...] | 2006 | Visit | [facility] | MD Darrion,PhD [address] | (Primary Dx) | | | | for Health and | [address] | | | | | Healing [address] | [place], [place] | | | | | Ave Mailcode: | [address] | | | | | [facility] [place] for | [phone] | | | | | Health and Healing, | | | | | | [facility] | | | | | | Floor [place], [place] | | | | | | [address] | | | | | | [phone] | | | +--------+---------+ + + + [...] + documented in this encounter Progress Notes Pamlea Up Ma(Inactive) - 08/26/2006 8:04 AM PDTFormatting [...] endoscopy VERTEBRAL FRACTURE T7,8,9 Xray T spine 2004 OPTIC NERVE HEMORRHAGE left eye Past Surgical [...] (ciprofloxacin) Tramadol Morphine IM ( only in [facility]) made gut pain worse REVIEW [...] normal limits except as noted. RIGHT LEFT Linden Crepitation J Sign Apprehension LIGAMENTS: Within normal [...] are not effective. Angel Morales M.D., Ph.D. Tool Lapper Hand, Surgical Regrind Mill Operator Orthopedics & Cartilage Reconstruction Surgery Department of Orthopedics [email or web address] documented in this encou nter Plan of Treatment Not on filedocumented as of this encounter Visit Diagnoses + + | Diagnosis | + + | Osteoarthrosis, unspecified whether generalized or localized, lower leg - Primary | + + documented in this encounter
--- OUTSIDE RECORDS SUMMARY | ~2019-12-13 | XMS | Encounter Summary ---
Demographics + + + | Address | [address] | | | [place] [address] | + + + | Home Phone [...] Team Providers + +------+ + | Care Mobile Nurse Name | Role | Phone | [...] as of this encounter Progress Notes Interface, Steam Hammer Operator In - 06/06/2005 2:[address] [facility] [id number] [facility] Date: 05/29/2005 Clinic: Bariatric [...] a day. She has had workups in [place] including CT and upper GI with small-bowel followthrough which have reportedly been negative. She has some recent changes in her medications including addition of a calcium channel colby and diclofenac. She says her symptoms gets worse every time she takes pain medicine. She is currently taking oxycodone. Her primary doctor in [place] is Dr. Gutierrez. Physical Examination: Vital Signs: [...] will try to arrange for her in [place], so she does not have to come out here. We will call Dr. Gutierrez to try to arrange for this and followup her within 3 months. The patient was seen with Dr. Padgett. Karen Cisneros M.D. Chris Padgett M.D. / SHARIF [id number] / [id number] / [id number] / [id number] Electronically signed by Chris Padgett 06-05-2005 05:29:09 PM documented i n this encounter Plan of Treatment Not on filedocumented as of this encounter Visit Diagnoses Not on filedocumented in this encounter"
--- OUTSIDE RECORDS SUMMARY | ~2019-12-13 | XMS | Encounter Summary ---
Demographics + + + | Address | [address] | | | [place] [address] | + + + | Home Phone [...] Providers + +------+ + | Care Software Test Engineer Name | Role | [...] as of this encounter Progress Notes Interface, Power Wood Sawyer In - 09/13/2005 2:06 AM PST [id number] [facility] Date: 01/02/2005 Clinic: Endocrinology [...] months. Beto Meeks M.D. PD / HS [id number] / [id number] / [id number] / [id number] cc: Chris Padgett M.D. Electronically signed by Beto Meeks 09-12-2005 02:22:56 AM documented i n this encounter Plan of Treatment Not on filedocumented as of this encounter Visit Diagnoses Not on filedocumented in this encounter"
--- OUTSIDE RECORDS SUMMARY | ~2019-12-13 | XMS | Encounter Summary ---
Demographics + + + | Address | [address] | | | [place] [address] | + + + | Home Phone [...] Team Providers + +------+ + | Care Shipping Inspector Name | Role | Phone | [...] + + | 11/09/ | Telephone | [facility] | Alanis, | Medical Problem | | 2018 | | MEDICINE [address] | MD Petrona | | | | | [place], | [address] [facility] | | | | | [place] [address] | [place] [address] | | | | | [phone] | [phone] | | | | | | | [...] | | | | | [place] [address] | | | | | | [phone] | | | | | | | | +--------+---------+ + + + | 12/20/ | Office | Otolaryngology | Ulysses Genao MD | | | 2019 | Visit | | [address] | | | | | | [address] [place] | | | | | | [place] [address] | | | | | | [phone] | | | | | | | | +--------+---------+ + + + | 02/15/ | Office | Internal Medicine | Alanis, | | | 2019 | Visit | | MD Petrona | | | | | | [address] [place] | | | | | | [place] [address] | | | | | | [phone] | | | | | | | | +--------+---------+ + + + documented as of this encounter Visit Diagnoses Not on filedocumented in this encounter"
--- OUTSIDE RECORDS SUMMARY | ~2019-12-13 | XMS | Encounter Summary ---
Demographics + + + | Address | [address] | | | [place] [address] | + + + | Home Phone [...] Team Providers + +------+ + | Care Petrography Teacher Name | Role | Phone | + +------+ + PCP | Unavailable | + +------+ + Encounter Details +--------+ + + + + | Date | Type | Department | Care Team | Description | +--------+ + + + + | 07/13/ | Office | | Note, Outpatient | [...] as of this encounter Progress Notes Interface, Weed Control Inspector In - 01/11/2005 6:26 PM PDTClinic Date: 07/13/2003 Clinic: Surgery Subjective: Mrs. Meehan presents for evaluation for bariatric surgery. There is an H and P previously dictated in the notes by Kenisha Melton. Briefly, she is a 43-year-old woman with a BMI of 47 who presents for laparoscopic gastric bypass. She has got a relatively complex medical history including a history of hypertension, obstructive sleep apnea secondary to hyperparathyroidism, fibromyalgia, creatinine kinase elevation, some neuromuscular disorder which is fully defined that includes increased sedimentation rate and synovitis and chronic migraines. She also has a history of a stroke which she does not describe very well but says she is left with left eye blindness. She tells me this was due to a migraine, but is uncertain if she had a full embolic workup. Social History: Her surgical history includes history of hysterectomy and oophorectomy. She has had a number of other nonabdominal small lumpectomies and other surgeries but nothing major. Review of Systems: Of note, she has chronic right upper quadrant pain and by report she tells me she has had an ultrasound that demonstrates gallstones. Physical Examination General: She is a well-appearing woman who appears her stated height and weight with a BMI of 47. Assessment and Plan: She has got a fair amount of weight in her hips and buttocks but has sort of a medium body habitus with a bit of upper abdominal fat as well. I discussed with her given her history of past stroke, we will need to obtain a Neurology consult, and we are going to set her up for that just to make sure there is nothing we need to be doing perioperatively in terms of preoperative workup prior to taking her into the Operating Room. After that consult has been obtained, we will see her back in clinic for a PAT appointment and workup appointment and schedule her for a gastric bypass surgery. wDaine Al M.D. LEDY / [id number] / [id number] / [id number] / Tdocumented in this encounter Plan of Treatment Not on filedocumented as of this encounter Visit Diagnoses Not on filedocumented in this encounter"
--- OUTSIDE RECORDS SUMMARY | ~2019-12-13 | XMS | Encounter Summary ---
Demographics + + + | Address | [address] | | | [place] [address] | + + + | Home Phone [...] Providers + +------+ + | Care Counter Clerk Farm Equipment Parts Name | Role | Phone | + [...] | | | | Clinical Nutrition | [place], [place] | | | | | [address] | [address] | | | | | Loop Mailcode: OPC5 | [phone] | | | | | Outpatient Clinic | | | | | | [facility], | | | | | | [place] [address] | | | | | | [phone] | | | +--------+ + + + [...]
--- OUTSIDE RECORDS SUMMARY | ~2019-12-13 | XMS | Encounter Summary ---
Demographics + + + | Address | [address] | | | [place] [address] | + + + | Home Phone [...] + | Author | [facility] | | | and [place] | + + + | Organization | [facility] | | | [...] Team Providers + +------+ + | Care Womens Volleyball Coach Name | Role | Phone | + +------+ + | Petrona Thapa | PCP | | | MD | | | + +------+ + Encounter Details +--------+ + + + + | Date | Type | Department | Care Team | Description | +--------+ + + + + | 03/25/ | Abstract | [facility] [place] | Pipo Kolb, | | | 2016 | | NEUROLOGY [place] | [address] | | | | | [address] [facility], | [address] [address] | | | | | [address] [place] | [place] | | | | | [place] [address] | [address] | | | | | [phone] | | | +--------+ + + + [...] | Visit | | [facility] [address] | | | | | [address] [place] | | | | | | [place] [address] | | | | | | [phone] | | | | | | | | +--------+---------+ + + + | 12/20/ | Office | Otolaryngology | Ulysses Genao MD | | | 2019 | Visit | | [address] | | | | | | [address] [place] | | | | | | [place] [address] | | | | | | [phone] | | | | | | | | +--------+---------+ + + + | 02/15/ | Office | Internal Medicine | Alanis, | | | 2019 | Visit | | MD Petrona | | | | | | [facility] [address] | | | | | | [place] [address] | | | | | | [phone] | | | | | | | | +--------+---------+ + + + documented as of this encounter Visit Diagnoses Not on filedocumented in this encounter"
--- OUTSIDE RECORDS SUMMARY | ~2019-12-13 | XMS | Encounter Summary ---
Demographics + + + | Address | [address] | | | [place] [address] | + + + | Home Phone [...] Team Providers + +------+ + | Care Roll Mechanic Name | Role | Phone | [...] Rd | | | | | | [place], [place] | | | | | | [address] | | | +--------+ + + + [...]
--- OUTSIDE RECORDS SUMMARY | ~2019-12-13 | XMS | Encounter Summary ---
Demographics + + + | Address | [address] | | | [place] [address] | + + + | Home Phone [...] Lab Results | | 2012 | | [place] [facility] [address] | REAL ESTATE CLOSING COORDINATOR [address] | | | | | [place] | [facility] [address] | | | | | Mailcode: Center | [place], [place] | | | | | for Health and | [address] | | | | | [place] [address] | [phone] | | | | | [place], [place] | | | | | | [address] | | | | | | [phone] | | | +--------+ + + + [...]
--- OUTSIDE RECORDS SUMMARY | ~2019-12-13 | XMS | Encounter Summary ---
Demographics + + + | Address | [address] | | | [place] [address] | + + + | Home Phone [...] Team Providers + +------+ + | Care Secondary Teacher Name | Role | Phone | [...] | | | | pain | [address] | [place] [address] | | | | | Procedures | [address] | [address] | | | | | CONSULT TO | [place], [place] | [place], [place] | | | | | GI PROCEDURE | [address] | [address] | | | | | UNIT: | Phone: | | | | | | COLONOSCOPY | [phone] | | | | | | | Fax: | | | | | | | [phone] | | + + + + + [...] | | | | Mailcode: L[address]A | [place], [place] | | | | | [facility] | [address] | | | | | [address] [place], [place] | [phone] | | | | | [address] | | | | | | [phone] | | | +--------+---------+ + + + [...] Ms. Meehan has been seen in the [facility] emergency dept twice in the last month [...] [facility] | [address] | [place], [place] | | | [facility] | | [address] | | + + + + + documented in this encounter Visit Diagnoses + + | Diagnosis | + + | Chronic abdominal pain - Primary Abdominal pain, unspecified site | + + documented in this encounter
--- OUTSIDE RECORDS SUMMARY | ~2019-12-13 | XMS | Encounter Summary ---
Demographics + + + | Address | [address] | | | [place] [address] | + + + | Home Phone [...] Team Providers + +------+ + | Care Equipment Maintenance Supervisor Name | Role | Phone [...] as of this encounter Progress Notes Interface, Multicraft Operator In - 06/23/2006 2:36 AM PST [id number] GEOVANNI [facility] Molly [id number] Clinic Date: 05/05/2006 Clinic: Endocrinology Subjective: Belinda [...] replacement. Beto Meeks M.D. PD / HS [id number] / [id number] / [id number] / cc: Pedrito Gutierrez M.D. [address] [place] [address] Joanna Arshad M.D. [facility] Electronically signed by Beto Meeks 06-20-2006 11:48:11 PM documented i n this encounter Plan of Treatment Not on filedocumented as of this encounter Visit Diagnoses Not on filedocumented in this encounter"
--- OUTSIDE RECORDS SUMMARY | ~2019-12-13 | XMS | Encounter Summary ---
Demographics + + + | Address | [address] | | | [place] [address] | + + + | Home Phone [...] Team Providers + +------+ + | Care Chinchilla Machine Operator Name | Role | Phone | + +------+ + | Petrona Thapa | PCP | | | MD | | | + +------+ + Reason for Visit +---------+--------+ + | Reason | Onset | Comments | | | Date | | +---------+--------+ + | Illness | 10/16/ | | | | 2019 | | +---------+--------+ + Encounter Details +--------+ + + + + | Date | Type | Department | Care Team | Description | +--------+ + + + + | 10/16/ | Telephone | [facility] | Alanis, | Illness | | 2019 | | MEDICINE [address] | MD Petrona | | | | | [place], | [address] [facility] | | | | | [place] [address] | [place] [address] | | | | | [phone] | [phone] | | | | | | | [...] Telephone Encounter - Maggie Montoya LPN - 10/17/2019 9:15 AM PDTPatient states complainin g of nausea with vomiting off/on since yesterday with fever of 99.7. Took 2 Zofran at 5:00am and again at 8:45am, with some relief. Denies all Covid-19 screening questions. Per tristen SHEEHAN to seek medical attention at the ED for evaluation/treatment. Understands and acceptsE lectronically signed by Maggie Montoya LPN at 10/17/2019 9:21 AM PDTTelephone Encounter - Shalonda Birmingham - 10/17/2019 8:53 AM PDTPatient stated for the last 24 hours or more she has h ad a low grade fever of 99.5 and has been vomiting. She stated,"it feels like my guts are bi ng ripped out of me." Please advise 8: 55 AM PDTdocumented in this encounter Plan of Treatment +--------+---------+ + + + | Date | Type | Specialty | Care Team | Description | +--------+---------+ + + + | 12/20/ | Office | Audiology | Elisabet Munson MS | | | 2019 | Visit | | [facility] [address] | | | | | [address] [place] | | | | | | [place] [address] | | | | | | [phone] | | | | | | | | +--------+---------+ + + + | 12/20/ | Office | Otolaryngology | Ulysses Genao MD | | | 2019 | Visit | | [address] | | | | | | [address] [place] | | | | | | [place] [address] | | | | | | [phone] | | | | | | | | +--------+---------+ + + + | 02/15/ | Office | Internal Medicine | Alanis, | | | 2019 | Visit | | MD Petrona | | | | | | [address] [place] | | | | | | [place] [address] | | | | | | [phone] | | | | | | | | +--------+---------+ + + + documented as of this encounter Visit Diagnoses Not on filedocumented in this encounter
--- OUTSIDE RECORDS SUMMARY | ~2019-12-13 | XMS | Encounter Summary ---
Demographics + + + | Address | [address] | | | [place] [address] | + + + | Home Phone [...] Providers + +------+ + | Care Foster Care Social Worker Name | Role | Phone [...] | | [facility] [address] | AUTOMATIC BOW MAKER MACHINE TENDER [address] | | | | | [place] | , [address] | | | | | Mailcode: Center | [place], [place] | | | | | [facility] and | [address] | | | | | Healing, [address] | [phone] | | | | | [place], [place] | | | | | | [address] | | | | | | [phone] | | | +--------+ + + + [...]
--- OUTSIDE RECORDS SUMMARY | ~2019-12-13 | XMS | Encounter Summary ---
Demographics + + + | Address | [address] | | | [place] [address] | + + + | Home Phone [...] Providers + +------+ + | Care Hand Cigar Making Supervisor Name | Role | Phone | [...] + | 08/31/ | Refill | [facility] | Alanis, | Medication Refill | | 2017 | | MEDICINE [address] | MD Petrona | | | | | [place], | [address] [place] | | | | | [place] [address] | [place] [address] | | | | | [phone] | [phone] | | | | | | | [...] Quantity: unknown Pharmacy: [facility] in [place] Call/Mail/Maintenance Tech/Fax: director of group sales Date of Last Refill: 07/25/17 Date of [...] | | 2019 | Visit | | [facility] [address] | | | | | [address] [place] | | | | | | [place] [id number] | | | | | | [phone] | | | | | | | | +--------+---------+ + + + | 12/20/ | Office | Otolaryngology | Ulysses Genao MD | | | 2019 | Visit | | [address] | | | | | | [address] [place] | | | | | | [place] [address] | | | | | | [phone] | | | | | | | | +--------+---------+ + + + | 02/15/ | Office | Internal Medicine | Alanis, | | | 2019 | Visit | | MD Petrona | | | | | | [address] [place] | | | | | | [place] [address] | | | | | | [phone] | | | | | | | | +--------+---------+ + + + documented as of this encounter Visit Diagnoses + + | Diagnosis | + + | Chronic bilateral low back pain without sciatica | + + documented in this encounter"
--- OUTSIDE RECORDS SUMMARY | ~2019-12-13 | XMS | Encounter Summary ---
Demographics + + + | Address | [address] | | | [place] [address] | + + + | Home Phone [...] Providers + +------+ + | Care Manager Assembly Name | Role | Phone | + [...] of this encounter Progress Notes Interface, Die Attacher In - 01/03/2006 3:02 AM PDTCLINIC DATE: 11/01/2002 NEUROMUSCULAR CLINIC PRIMARY CARE PROVIDER: Pedrito Gutierrez M.D. OTHER PHYSICIAN: Issac Meeks M.D., [facility] Endocrinology. PROBLEM LIST 1. Fibromyalgia and [...] fatigue. She reportedly has begun walking with [place] crutches much of the time due to [...] Irving Pete M.D. Neurology/Neuromuscular Fellow TBD / [id number] / [id number] / [id number] / [id number] C: 11/10/2002 BRAD cc: Issac Meeks M.D. [facility] Endocrinology Pedrito Gutierrez M.D. [address] [place], [place] [address]Nwhituxtbvueye signed by Interface, Die Attacher In at 01/03/2006 3:0 2 AM PDTdocumented in this encounter Plan of Treatment Not on filedocumented as of this encounter Visit Diagnoses Not on filedocumented in this encounter
--- OUTSIDE RECORDS SUMMARY | ~2019-12-13 | XMS | Encounter Summary ---
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 2. Continue with [place] 10/325 1 tablet as needed for activity [...] Belinda Meehan is a 46 y.o. female [facility] Comprehensive [...] able to see Dr Gutierrez yet b ca does have and appointment next week to [...] ev eduardo 72 hours. 2. Continue with [place] 10/325 1 tablet as needed for activity related pain NTE 3 per day. 3. Continue with pain psychology and physical therapy. 4. Follow up in two weeks to review medication management 5. Keep neurology evaluation as able with insurance aurthorization.- migraine headache eval uation 6. PCP to assess LE edema/swelling. DELFINA MOLINA [facility] Mail code CH 4P [facility] and [address] [address] Ailyn Foster 09/10/19 07 12:20 [...]
--- OUTSIDE RECORDS SUMMARY | ~2019-12-13 | XMS | Encounter Summary ---
Demographics + + + | Address | [address] | | | [place] [address] | + + + | Home Phone [...] Providers + +------+ + | Care Human Resources Mgr Name | Role | Phone | + +------+ + | Crystal Gutierrez MD | PCP | | + +------+ + Encounter Details +--------+ + + + + | Date | Type | Department | Care Team | Description | +--------+ + + + + | 09/14/ | Procedure - | [facility] Division of | Endoscopy, Gi | EGD | | 2008 | | Gastroenterology/Hep | | (esophagogastroduode | | | Transcribed | atology [address] | | noscopy) | | | | [address] | | | | | | Mailcode: PV310 | | | | | | [place] | | | | | | [address] | | | | | | [place], [place] | | | | | | [address] | | | | | | [phone] | | | +--------+ + + + [...] + + + | PROCEDURES:PANENDOSCOPY (EGD) CPT: [id number]. PERSONNEL:THE | | | ATTENDING PHYSICIAN WAS [...] AM PDT | | PROCEDURES:PANENDOSCOPY (EGD) CPT: [id number]. | | PERSONNEL:THE ATTENDING PHYSICIAN WAS PRESENT [...]
--- OUTSIDE RECORDS SUMMARY | ~2019-12-13 | XMS | Encounter Summary ---
Demographics + + + | Address | [address] | | | [place] [address] | + + + | Home Phone [...] Team Providers + +------+ + | Care Visitor Services Assistant Name | Role | Phone [...] of this encounter Progress Notes Interface, Caustic Strength Inspector In - 01/21/2006 1:09 AM [facility] [place] [address] [address], [place] [address] or March 15, 2002 Pedrito Gutierrez M.D. [facility] [address] [place] [address] RE: BELINDA MEEHAN MR #: [id number] Dear Dr. Gutierrez: I had the pleasure [...] to set her up to see a senior health consultant in Neurology or the Neuromuscular Clinic [...] to contact me. Sincerely, Issac Meeks M.D. pulmonary care nurse Division of Endocrinology, Diabetes, and Clinical Shredding Machine Operator of Metabolic Disorders Clinic PBBuzz / SHARIF [id number] / [id number] / [id number] / Tdocumented in this encounter Plan of Treatment Not on filedocumented as of this encounter Visit Diagnoses Not on filedocumented in this encounter"
--- OUTSIDE RECORDS SUMMARY | ~2019-12-13 | XMS | Encounter Summary ---
Demographics + + + | Address | [address] | | | [place] [address] | + + + | Home Phone [...] Providers + +------+ + | Care Human Factors Engineer Name | Role | Phone | + +------+ + | Petrona Thapa | PCP | | | MD | | | + +------+ + Encounter Details +--------+ + + + + | Date | Type | Department | Care Team | Description | +--------+ + + + + | 11/24/ | Orders Only | [facility] | Alanis, | Right wrist pain | | 2019 | | MEDICINE [address] | MD Petrona | (Primary Dx) | | | | [address] [place], | [address] [place] | | | | | [place] [address] | [place] [address] | | | | | [phone] | [phone] | | | | | | | [...] | | | | | | [place] [address] | | | | | | [phone] | | | | | | | | +--------+---------+ + + + | 12/20/ | Office | Otolaryngology | Ulysses Genao MD | | | 2019 | Visit | | [address] | | | | | | [address] [place] | | | | | | [place] [address] | | | | | | [phone] | | | | | | | | +--------+---------+ + + + | 02/15/ | Office | Internal Medicine | Alanis, | | | 2019 | Visit | | MD Petrona | | | | | | [address] [place] | | | | | | [place] [address] | | | | | | [phone] | | | | | | | | +--------+---------+ + + + + +---------+--------+ + + | Name | Type | Priori | Associated Diagnoses | Order Schedule | | | | ty | | | + +---------+--------+ + + | XR Wrist Right 2 Vw | Imaging | Routin | Right wrist pain | Expected: | | | | e | | 11/25/2019, Expires: | | | | | | 11/24/2020 | + +---------+--------+ + + documented as of this encounter Visit Diagnoses + + | Diagnosis | + + | Right wrist pain - Primary Pain in joint, forearm | + + documented in this encounter"
--- OUTSIDE RECORDS SUMMARY | ~2019-12-13 | XMS | Encounter Summary ---
Demographics + + + | Address | [address] | | | [place] [address] | + + + | Home Phone [...] Team Providers + +------+ + | Care Dianeticist Name | Role | Phone | + [...] | | | | [place], | [address] | | | | | | [place] | Phone: | | | | | | [address] | [phone] | | | | | | Phone: | Fax: | | | | | | [phone] | [phone] | | | | | | Fax: | | | | | | | [phone] | | +--------+ + + + + + Encounter Details +--------+---------+ + + + | Date | Type | Department | Care Team | Description | +--------+---------+ + + + | 11/16/ | Office | [facility] | Alanis, | Diarrhea, | | 2017 | Visit | GASTROENTEROLOGY | MD Petrona | unspecified type | | | | [address] [place] | [address] [place] | (Primary Dx); | | | | [address] [place], [place] | [place] [address] | Chronic diarrhea; | | | | [address] | [phone] | S/P gastric bypass; | | | | [phone] | | Gastroesophageal | | | | | Luther Brito MD | reflux disease, | | | | | [address] | esophagitis presence | | | | | [place], [place] | not specified; | | | | | [address] | History of gastric | | | | | [phone] | ulcer; Abdominal | | | | | | pain, unspecified | | | | | | abdominal location; | | | | | | Narcotic dependence | | | | | | ([facility]); Obesity (BMI | | | | | | 30.0-34.9) | +--------+---------+ + + + Social History [...] + + + | Blood Pressure | 90/58 | 11/16/2017 9:16 AM | | | | | PDT | | + + + + + | Pulse | 86 | 11/16/2017 9:16 AM | | | | | PDT | | + + + + + | Temperature | 36.8 C (98.2 F) | 11/16/2017 9:16 AM | | | | | PDT | | + + + + + | Respiratory Rate | 14 | 11/16/2017 9:16 AM | | | | | PDT | | + + + + + | Oxygen Saturation | 95% | 11/16/2017 9:16 AM | | | | | PDT | | + + + + + | Inhaled Oxygen | - | - | | | Concentration | | | | + + + + + | Weight | 98.8 kg (217 lb 13 | 11/16/2017 9:16 AM | | | | oz) | PDT | | + + + + + | Height | 172.7 cm (5' 8") | 11/16/2017 9:16 AM | | | | | PDT | | + + + + + | Body Mass Index | 33.12 | 11/16/2017 9:16 AM | | | | | PDT | | + + + + + documented in this encounter Progress Dixie Reyna RN - 11/16/2017 9:30 AM PDTStool studies ordered and patient will complet e at [facility] in [place], orders were faxed; scheduled for egd/colon prop on 12/[address] Brito; advised to hold PPI day of procedure, she agreed. 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 documented in this encounter H&P Luther Renee MD - 11/16/2017 9:30 AM PDT Date of Office Visit: 11/16/17 Chief Complaint: No chief complaint on file. History of Present Illness: Belinda Meehan is a 57 y.o. female patient who presents wi th multiple gastrointestinal complaints. The patient states that she has dumping syndrome a nd whenever she eats she immediately has a diarrheal stool sometimes with fecal incontinence . She denies seeing blood in her stool or black stools however she may have 3-5 loose water y stools each day which at times can be incapacitating. All her symptoms started since she had gastric bypass surgery in 2003. She also has occasional nausea and vomiting as well as frequent reflux symptoms despite taking twice a day omeprazole. She does take Carafate tabl ets which does help her symptoms somewhat. She denies taking any NSAID medications. She al so complains of abdominal pain with cramps all over and cannot specify whether its more doug re on the right side or left side or upper or lower abdomen. Nothing in particular makes th e pain or cramps better or worse. Today she is not having any abdominal pain. There is no family history of colon cancer or rectal cancer and no family history of inflammatory bowel disease. She denies tobacco use or alcohol use and uses no marijuana or illicit drugs. She does take narcotic pain medications on a regular basis. She does take Lomotil on a daily b asis which she feels does not work. She also takes Imodium liquid frequently and goes throu gh approximately 2 bottles a week of liquid Imodium. She has had colonoscopy in the past ho wever it is been many years and is unsure of the results. She does have a history of ulcers and feels that she may have recurrence of ulcers causing her symptoms at this time. Past Medical History: Past Medical History: Diagnosis [...] CUFF REPAIR 2005 SPINE SURGERY TONSILLECTOMY 1964 Family History: Family History Problem Relation Age [...] High blood pressure Son Renal Failure Son Allergies: Allergies Allergen Reactions Codeine Sulfate Nausea Only Levofloxacin Hives,Itching,Rash Amitriptyline Hcl Other (See Comments) Confused and questionable for seizures Rkwrpvjgki-Puvr-Xaneigkb Not Noted Cephalexin Hives Duloxetine Not Noted Migraines and nausea Ketorolac Hives Morphine Swelling Ropinirole Hcl Hives Tramadol Hcl Nausea Only Wnmbsfglvf-Aayq-Vlqouyss Hives,Rash Ciprofloxacin Hives,Rash Clarithromycin Hives,Rash Clindamycin Hcl Hives,Rash Doxycycline Rash Levofloxacin Hives,Rash Penicillins Hives,Rash Sulfamethoxazole-Trimethoprim Hives,Rash Intolerance No active intolerances/contraindications Medications: has a current medication list which includes the following prescription(s): ascorbic acid, betaxolol, calcium carbonate, cholecalciferol, clobetasol, diphenoxylate-atropine, fluticaso ne, furosemide, gabapentin, hydrocodone-acetaminophen, levothyroxine, meclizine, methocarbam ol, metoprolol tartrate, complete womens, naloxone, nitroglycerin, omeprazole, ondansetron, potassium chloride, sucralfate, topiramate, torsemide, travoprost, UNABLE TO FIND, and zoled ronic acid, and the following Facility-Administered Medications: cyanocobalamin. Review of Systems: A 10-point review of systems was performed and was negative except as n oted in the history of present illness. Physical Exam: Vitals:BP 90/58 | Pulse 86 | Temp 36.8 C (98.2 F) (Temporal) | Resp 14 | Ht 1.727 m (5' 8") | Wt 98.8 kg (217 lb 13 oz) | SpO2 95% | BMI 33.12 kg/m General: This is a well-developed,well-nurished female [...] Skin: Warm and dry, no erythematous rash. Assessment and Plan: 57-year-old white female with multiple gastrointestinal complaints inc luding severe diarrhea, nausea and vomiting, reflux despite twice a day omeprazole, abdomina l pain with cramps. Will order stool studies at this time to evaluate for C. diff colitis a s well as bacterial or parasitic infection. At this time I recommend that colonoscopy be performed for further evaluation. Indications risks benefits and possible complications were discussed with the patient who wishes to pro ceed with colonoscopy at this time. At this time I recommend that upper endoscopy or esophagogastroduodenoscopy be performed fo r further evaluation. Indications risks benefits and possible complications were discussed with the patient who wished to proceed with EGD at this time. I strongly advised the procedures be performed with anesthesia propofol due to the patient' s multiple medical problems as well as obesity and daily narcotic pain medications. Referral to nutrition will be sent following the procedures. At this time I recommend that she maintain a dairy free, lactose-free, high-fiber diet with low volume meals due to her b ypass surgery. documented in this enc ounter Plan of Treatment +--------+---------+ + + + | Date | Type | Specialty | Care Team | Description | +--------+---------+ + + + | 12/20/ | Office | Audiology | Elisabet Munson, | | | 2019 | Visit | | [facility] [address] | | | | | | [address] [facility] | | | | | | [place] [address] | | | | | | [phone] | | | | | | | | +--------+---------+ + + + | 12/20/ | Office | Otolaryngology | Ulysses Genao MD | | | 2019 | Visit | | [address] | | | | | | [address] [place] | | | | | | [place] [address] | | | | | | [phone] | | | | | | | | +--------+---------+ + + + | 02/15/ | Office | Internal Medicine | Alanis, | | | 2019 | Visit | | MD Petrona | | | | | | [address] [place] | | | | | | [place] [address] | | | | | | [phone] | | | | | | | | +--------+---------+ + + + + + +--------+ + + | Name | Type | Priori | Associated Diagnoses | Order Schedule | | | | ty | | | + + +--------+ + + | Ova and Parasite | Microbiolog | Routin | Chronic diarrhea | Expected: 11/16/2017 | | Examination | y | e | Abdominal pain, | (Approximate), | | | | | unspecified | Expires: 05/18/2018 | | | | | abdominal location | | + + +--------+ + + | Culture, Stool | Microbiolog | Routin | Chronic diarrhea | Expected: 11/16/2017 | | | y | e | Abdominal pain, | (Approximate), | | | | | unspecified | Expires: 05/18/2018 | | | | | abdominal location | | + + +--------+ + + | Giardia Ag, EIA, | Microbiolog | Routin | Chronic diarrhea | Expected: 11/16/2017 | | Stool | y | e | Abdominal pain, | (Approximate), | | | | | unspecified | Expires: 05/18/2018 | | | | | abdominal location | | + + +--------+ + + | Cryptosporidium Ag | Microbiolog | Routin | Chronic diarrhea | Expected: 11/16/2017 | | | y | e | Abdominal pain, | (Approximate), | | | | | unspecified | Expires: 05/18/2018 | | | | | abdominal location | | + + +--------+ + + | Clostridium | Microbiolog | Routin | Chronic diarrhea | Expected: 11/16/2017 | | difficile A and B | y | e | Abdominal pain, | (Approximate), | | EIA | | | unspecified | Expires: 05/18/2018 | | | | | abdominal location | | + + +--------+ + + | Lactoferrin, fecal, | Lab | Routin | Chronic diarrhea | Expected: 11/16/2017 | | quantitative | | e | Abdominal pain, | (Approximate), | | | | | unspecified | Expires: 05/18/2018 | | | | | abdominal location | | + + +--------+ + + | Fat, Fecal, Qual | Lab | Routin | Chronic diarrhea | Expected: 11/16/2017 | | | | e | Abdominal pain, | (Approximate), | | | | | unspecified | Expires: 05/18/2018 | | | | | abdominal location | | + + +--------+ + + documented as of this encounter Visit Diagnoses + + | Diagnosis | + + | Diarrhea, unspecified type - Primary | + + | Chronic diarrhea Diarrhea | + + | S/P gastric bypass Bariatric surgery status | + + | Gastroesophageal reflux disease, esophagitis presence not specified | + + | History of gastric ulcer Personal history of other diseases of digestive system | + + | Abdominal pain, unspecified abdominal location | + + | Narcotic dependence (HCC) Unspecified drug dependence, unspecified | + + | Obesity (BMI 30.0-34.9) Obesity, unspecified | + + documented in this encounter
--- OUTSIDE RECORDS SUMMARY | ~2019-12-13 | XMS | Encounter Summary ---
Demographics + + + | Address | [address] | | | [place] [address] | + + + | Home Phone [...] Providers + +------+ + | Care Transmission Maintenance Supervisor Name | Role | Phone [...] | n | | [place] | [address] | | | | | [address] | [place] | | | | | | [address] | [address] Phone: | | | | | | [place], | [phone] | | | | | | [place] | Fax: | | | | | | [address] | [phone] | | | | | | Phone: | | | | | | | [phone] | | | | | | | Fax: | | | | | | | [phone] | | +--------+--------+ + + + + [...] Chronic neck pain; | | | | [address] | | Chronic low back | | | | [phone] | | pain; Lumbar | | | [...] of the procedure you must provide a ambulance driver to take you home. For all procedur es it is recommended that someone else drive you home. documented in this encounter Progress Notes Carlos Hsieh MD - 01/04/2015 8:13 AM PDT Carlos Hsieh MD [address] [place] [address], [address] [place], [place] [address] FAX: PHYSICAL MEDICINE AND REHABILITATION H&P CHIEF COMPLAINT: Chief Complaint Patient presents with Neck Pain Neck pain that radiates between the shoulder blades and down from there HISTORY OF PRESENT ILLNESS: The patient is a 54 y.o. female being seen today at the [facility] of Dr. Booth for complaints [...] were performed by a Dr. García in [place]. Th e patient is unable to take NSAID's because apparently last time she took them she was black and blue all over. PAST MEDICAL HISTORY: Past Medical History Diagnosis Date Diarrhea Osteoarthritis, generalized Migraine Osteopenia Obesity Syncope Hyperparathyroidism ([facility]) RLS (restless legs syndrome) OLIVER (obstructive sleep apnea) Depression COPD (chronic obstructive pulmonary disease) ([facility]) Fibromyalgia Peripheral neuropathy Chronic pain Benign essential hypertension Rheumatoid arthritis (HCC) IBS (irritable bowel syndrome) Scoliosis Hypothyroidism Stroke ([facility]) Blind left eye Arthritis Osteoporosis Migraines Dumping [...] visit. ALLERGIES: Allergies Allergen Reactions Amitriptyline Hcl Hnlyhlbmjd-Fewr-Vzpwkvnu Cephalexin Ciprofloxacin Clarithromycin Clindamycin Hcl Codeine Sulfate [...] has no apparent deficits with short or mcfp memory. She has appropriate fund of knowledge [...] of the cervical spine next week at [facility]. The patient was informed to contact our [...] | | | | | [place] [address] | | | | | | [phone] | | | | | | | | +--------+---------+ + + + | 12/20/ | Office | Otolaryngology | Ulysses Genao MD | | 2019 | Visit | | [address] | | | | | | [address] [place] | | | | | | [place] [address] | | | | | | [phone] | | | | | | | | +--------+---------+ + + + | 02/15/ | Office | Internal Medicine | Alanis, | | | 2019 | Visit | | MD [place] | | | | | | [address] | | | | | | [place] [address] | | | | | | [phone] | | | | | | | | +--------+---------+ + + + documented as of this encounter Results FL ELIANA Lumbar Transforaminal (01/19/2015 12:00 PM PDT) + + | Specimen | + + | | + + + + + | Narrative | Performed At | + + + | 01/19/2015 Bilateral Transforaminal Epidural Steroid Injections | [id number] | | Diagnosis: Lumbar radiculopathy ICD-9 Code 724.4 Belnida Basilio | [facility] | | Shefali presents to the fluoroscopy [...] + + | [address] | [address] | [place], [place] | [phone] | | [facility] | | [address] | | | - IMAGING | | [...]
--- OUTSIDE RECORDS SUMMARY | ~2019-12-13 | XMS | Encounter Summary ---
Demographics + + + | Address | [address] | | | [place] [address] | + + + | Home Phone [...] Providers + +------+ + | Care Network Operations Technician Name | Role | Phone | [...] 2005 | | Bariatric [address] | [address] | Pain (Primary Dx) | | | | [address] | [address] | | | | | Mailcode: L223A | [place], [place] | | | | | Physician's Sharmila | [address] | | | | | [address] [place], [place] | [phone] | | | | | [address] | | | | | | [phone] | | | +--------+ + + + [...] [facility] | [address] | [place], [place] | | | [facility] | | [address] | | + + + + + documented in this encounter Visit Diagnoses + + | Diagnosis | + + | Chronic abdominal pain - Primary Abdominal pain, unspecified site | + + documented in this encounter"
--- OUTSIDE RECORDS SUMMARY | ~2019-12-13 | XMS | Encounter Summary ---
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 Provider: DELFINA MOLINA ANP elfina Molina - 007 6:13 PM PST.pt [facility] Nathalia willson - 07/15/2006 4:28 PM PSTFormatting of this note might be different from the origin al. Physical Therapy Medicare Progress Note Date: 07/15/2006 Belinda Meehan [id number]. 1960 Start of Care: 06/23/2006 Referring Provider: [...] + + +--------+ + + | [facility] MANUAL THER | Procedures | Routin | [...] + + +--------+ + + | [facility] THERAPE[facility] | Procedures | Routin | Cervical [...]
--- OUTSIDE RECORDS SUMMARY | ~2019-12-13 | XMS | Encounter Summary ---
Demographics + + + | Address | [address] | | | [place] [address] | + + + | Home Phone [...] Team Providers + +------+ + | Care Needle Punch Machine Operator Name | Role | Phone [...] Densitometry | | MD Beto | Density [facility] | | | | | Osteoporosis | [address] | [address] | | | | | Procedures | Ave | Naeem Mcrae | | | | | CONSULT TO | [place], [place] | Rd Mailcode: | | | | | BONE | [address] | [address] | | | | | DENSITOMETRY | Phone: | Naeem De La Rosa | | | | | | [phone] | [place], [place] | | | | | | Fax: | [address] | | | | | | [phone] | Phone: | | | | | | | [phone] | | | | | | | Fax: | | | | | | | [phone] | +--------+--------+ + + + + Encounter Details +--------+---------+ + + + | Date | Type | Department | Care Team | Description | +--------+---------+ + + + | 08/23/ | Office | Endocrinology, | Sjh, Bmd Dexa | Other Osteoporosis | | 2007 | Visit | Diabetes and | [address] | (Primary Dx); | | | | Clinical Nutrition | [facility], | Symptomatic | | | | [address] | [place] [address] | Menopausal or Female | | | | [facility] Mailcode: | | Climacteric States; | | | | [address] | | Disorder of Bone | | | | [facility], [place] | | and Cartilage, | | | | [address] | | Unspecified | | | | [phone] | | | +--------+---------+ + + + [...] | | + +---------+--------+ + + | CO DXA BONE | Imaging | Routin | [...]
--- OUTSIDE RECORDS SUMMARY | ~2019-12-13 | XMS | Encounter Summary ---
Demographics + + + | Address | [address] | | | [place] [address] | + + + | Home Phone [...] Team Providers + +------+ + | Care Ethylene Oxide Panelboard Operator Name | Role | Phone | [...] + | 03/02/ | Telephone | [facility] | Alanis, | Results, Imaging | | 2017 | | MEDICINE [address] | MD [place]ron[place] | | | | | [place], | [address] [facility] [address] | | | | | [place] [address] | [place] [address] | | | | | [phone] | [phone] | | | | | | | [...] amaris e to come in please call [phone].Electronically signed by Bob Tinoco at 02/13 12:42 [...] | | | | | [place] [address] | | | | | | [phone] | | | | | | | | +--------+---------+ + + + | 12/20/ | Office | Otolaryngology | Ulysses Genao MD | | | 2019 | Visit | | [address] | | | | | | [address] [place] | | | | | | [place] [address] | | | | | | [phone] | | | | | | | | +--------+---------+ + + + | 02/15/ | Office | Internal Medicine | Alanis, | | | 2019 | Visit | | MD Petrona | | | | | | [address] [place] | | | | | | [place] [address] | | | | | | [phone] | | | | | | | | +--------+---------+ + + + documented as of this encounter Visit Diagnoses Not on filedocumented in this encounter"
--- OUTSIDE RECORDS SUMMARY | ~2019-12-13 | XMS | Encounter Summary ---
Demographics + + + | Address | [address] | | | [place] [address] | + + + | Home Phone [...] Providers + +------+ + | Care Automotive Painter Name | Role | Phone | [...] as of this encounter Progress Notes Interface, Copier Field Service Technician In - 08/14/2005 2:05 AM PST [id number] [facility] Date: 08/06/2005 Clinic: Rheumatology [...] of antiinflammatory diet that one of the health safety coordinator in [place] has written a book about, and I have had a patient do extremely well with it in terms of her IBS and fibromyalgia pain and fatigue. Belinda is interested in this and will pursue it. 3. I have given her a lot of articles that she can pass onto her physicians in [place]. She would like somebody there to learn [...] 4 months. Caitlin Rivera M.S., F.N.P. / [id number] / [id number] / [id number] / [id number] cc: Pedrito Gutierrez M.D. [address] [place] [address] Electronically signed by Caitlin Rivera 08-13-2005 03:37:47 PM documented i n this encounter Plan of Treatment Not on filedocumented as of this encounter Visit Diagnoses Not on filedocumented in this encounter"
--- OUTSIDE RECORDS SUMMARY | ~2019-12-13 | XMS | Encounter Summary ---
Demographics + + + | Address | [address] | | | [place] [address] | + + + | Home Phone [...] + + | 11/14/ | Office | [facility] | Alanis, | Situational | | 2019 | Visit | MEDICINE [address] | MD [place]ron[place] | depression (Primary | | | | [address] [place], | [address] [facility] | Dx); B12 deficiency; | | | | [place] [address] | [place] [address] | Chronic diarrhea; | | | | [phone] | [phone] | History of Zoe-en-Y | | | [...] COPD (chronic obstructive pulmonary disease) ([facility]) Depression Diarrhea Dumping syndrome Fall at home Fatigue fracture of vertebra Fibromyalgia Full dentures GERD (gastroesophageal reflux disease) Glaucoma Hyperparathyroidism ([facility]) Hypothyroidism IBS (irritable bowel syndrome) Idiopathic scoliosis Leg edema Low back pain Lumbar postlaminectomy syndrome Lumbar radiculopathy primarily right 01/04/2015 Meniere syndrome Migraine with aura Migraines Muscle cramping Muscle spasm Myalgia Nausea Nonalcoholic hepatosteatosis Obesity Opioid dependence ([facility]) Orthostatic hypotension OLIVER (obstructive sleep apnea) Osteoarthritis, generalized Osteopenia Osteoporosis Palpitations Peripheral neuropathy Rheumatoid arthritis ([facility]) Right arm pain 01/04/2015 RLS (restless legs syndrome) S/P lumbar fusion 01/04/2015 Scoliosis Sleep apnea Spondylosis with myelopathy, lumbar region Stroke ([facility]) Syncope Tremor Type II or unspecified [...] Procedure: COLONOSCOPY; Surgeon: Luther Brito MD; Location: [facility] MEDICAL PROCEDURE UN[facility] DILATION AND CURETTAGE OF UTERUS ELBOW SURGERY FINGER TRIGGER RELEASE 2002 FINGER TRIGGER RELEASE 2010 GASTRIC BYPASS SURGERY 2004 HYSTERECTOMY 05/14/1980 JOINT REPLACEMENT Bilateral 2007 2008 KNEE ARTHROSCOPY 2005 LAPAROSCOPY 01/27/2015 LAPAROTOMY 2008 ROTATOR CUFF REPAIR 2005 SPINE SURGERY TONSILLECTOMY 1964 UPPER GASTROINTESTINAL ENDOSCOPY N/A 12/18/2017 Procedure: EGD; Surgeon: Luther Brito MD; Location: [facility] MEDICAL PROCEDURE UNIT CURRENT MEDICATIONS Current Outpatient [...] Allergen Reactions Ensure Diarrhea Food Diarrhea Lactose Sbkztlfecr-Rtg-Utfw-Codeine Other (See Comments) Balance problems Codeine Sulfate Nausea Only Food Allergy Formula Diarrhea Ensure Levofloxacin Hives, Itching and Rash Butalbital Ropinirole Amitriptyline Hcl Other (See Comments) Confused and questionable for seizures Lwzweukkac-Bvch-Gnjtszsy Rash duplicate Ursnnlbgpt-Qpbl-Ngffhwlk Hives and Rash Cephalexin Hives Ciprofloxacin Hives [...] 1. Parts of this documentwere created using [employer] speech recognition software. As a resu lt, there may be unintended word spelling errors. Every attempt was made to correct the di ctation. Teresa Adame, Registered Nurse Renal - 11/15/2019 9:30 AM PDTFormatting of this note might be diff erent from the original. Administrations This Visit cyanocobalamin (VITAMIN B-12) injection 1,000 mcg Admin Date 11/15/2019 Action Given Dose 1000 mcg Route Intramuscular Administered By Teresa Mitchell, Registered Nurse Renal INdo cumented in this encounter Plan of Treatment +--------+---------+ + + + | Date | Type | Specialty | Care Team | Description | +--------+---------+ + + + | 12/20/ | Office | Audiology | Elisabet Munson MS | | | 2019 | Visit | | [facility] [address] | | | | | | [address] [place] | | | | | | [place] [address] | | | | | | [phone] | | | | | | | | +--------+---------+ + + + | 12/20/ | Office | Otolaryngology | Ulysses Genao MD | | | 2019 | Visit | | [address] | | | | | | [address] [place] | | | | | | [place] [address] | | | | | | [phone] | | | | | | | | +--------+---------+ + + + | 02/15/ | Office | Internal Medicine | Alanis, | | | 2019 | Visit | | MD [place] | | | | | | [address] [place] | | | | | | [place] [address] | | | | | | [phone] | | | | | | | [...] Procedure Note | + + | Tawanda, Ollie Results In - 11/15/2019 11:20 AM PDT [...] | | | First dose on [facility] 10/15/17 at 1215 | | | | [...]
--- OUTSIDE RECORDS SUMMARY | ~2019-12-13 | XMS | Encounter Summary ---
Demographics + + + | Address | [address] | | | [place] [address] | + + + | Home Phone [...] Providers + +------+ + | Care Management Associate Name | Role | Phone [...] + + | 08/26/ | Telephone | [facility] | Alanis, | Headache (Adult - | | 2018 | | MEDICINE [address] | MD [place] | Recurrent Or Known | | | | [place], | [address] [place] | Dx Migraines) | | | | [place] [address] | [place] [address] | | | | | [phone] | [phone] | | | | | | | [...] | | | | | [place] [address] | | | | | | [phone] | | | | | | | | +--------+---------+ + + + | 12/20/ | Office | Otolaryngology | Ulysses Genao MD | | | 2019 | Visit | | [address] | | | | | | [address] [place] | | | | | | [place] [address] | | | | | | [phone] | | | | | | | | +--------+---------+ + + + | 02/15/ | Office | Internal Medicine | Alanis, | | | 2019 | Visit | | MD [place] | | | | | | [address] [place] | | | | | | [place] [address] | | | | | | [phone] | | | | | | | [...]
--- OUTSIDE RECORDS SUMMARY | ~2019-12-13 | XMS | Encounter Summary ---
Demographics + + + | Address | [address] | | | [place] [address] | + + + | Home Phone [...] + +------+ + | Care Precision Aircraft Structure Assembler Name | Role | Phone | [...] as of this encounter Progress Notes Interface, Meter Installer In - 01/12/2005 10:09 AM PDT [id number] [facility] Date: 12/12/2004 Clinic: Endocrinology PHONE CONTACT NOTE The patient called me today after having surgery last week here at [facility]. Her concern was the development of [...] cushion which I have ordered today through [employer], phone #[phone] and fax #[phone]. Today, the patient will monitor the decubiti closely and will be in touch with myself and her other physician depending on the progress. She also still has [address], which may be removed in one or two weeks when she returns to the Surgery Clinic at [facility]. Beto Meeks M.D. PD / HS [id number] / [id number] / [id number] / [id number] cc: Chris Padgett M.D. documented i n this encounter Plan of Treatment Not on filedocumented as of this encounter Visit Diagnoses Not on filedocumented in this encounter"
--- OUTSIDE RECORDS SUMMARY | ~2019-12-13 | XMS | Encounter Summary ---
Demographics + + + | Address | [address] | | | [place] [address] | + + + | Home Phone [...] Team Providers + +------+ + | Care Ship'S Surveyor Name | Role | Phone | [...] [id number] | | | | | | [place], [place] | | | | | | [address] | | | | | | [phone] | | | +--------+ + + + [...]
--- OUTSIDE RECORDS SUMMARY | ~2019-12-13 | XMS | Encounter Summary ---
Demographics + + + | Address | [address] | | | [place] [address] | + + + | Home Phone [...] Team Providers + +------+ + | Care Slat Basket Maker Helper Name | Role | Phone | + +------+ + | Pedrito Gutierrez MD | PCP | | + +------+ + Encounter Details +--------+ + + + + | Date | Type | Department | Care Team | Description | +--------+ + + + + | 12/26/ | Telephone | [facility] | Lukasz Ogden, | | | 2007 | | Pain Center at | PhD [address] | | | | | [facility] | [place], [place] | | | | | [address] | [address] | | | | | Mailcode: [id number] | [phone] | | | | | [facility] | | | | | | and [place], | | | | | | Building | | | | | | [place], [place] | | | | | | [address] | | | | | | [phone] | | | +--------+ + + + [...]
--- OUTSIDE RECORDS SUMMARY | ~2019-12-13 | XMS | Encounter Summary ---
Demographics + + + | Address | [address] | | | [place] [address] | + + + | Home Phone [...] Providers + +------+ + | Care Educational Adviser Name | Role | Phone | + +------+ + | Petrona Thapa | PCP | | | MD | | | + +------+ + Reason for Visit +--------+--------+ + | Reason | Onset | Comments | | | Date | | +--------+--------+ + | Fever | 03/04/ | | | | 2017 | | +--------+--------+ + Encounter Details +--------+ + + + + | Date | Type | Department | Care Team | Description | +--------+ + + + + | 03/04/ | Telephone | [facility] | Alanis, | Fever | | 2017 | | MEDICINE [address] | MD [place] | | | | | [place], | [address] [place] | | | | | [place] [address] | [place] [address] | | | | | [phone] | [phone] | | | | | | | [...] Telephone Encounter - Lisa Hurley RN - 03/04/2018 2:42 PM PDTCalled patient back and left a VM to return call. P M PDTTelephone Encounter - Juliane Elena - 03/04/2018 8:43 AM PDTPatient called back on status of message. elepho ne Encounter - Adriana Cantor - 03/04/2018 6:41 AM PDTPatient called wanting to speak w ith a nurse as she is not feeling well at all. Patient stated she just got back from going to the pain clinic yesterday and is sick, fever at 100.9 last night, really shaky, cold, and cannot get warm. Fever this morning she stated is 100.3 and has been throwing up and havin g diarrhea, not eating, can hardly even keep fluids down and the Zofran is not helping very much. Patient would like a call back to gwen, [...] | | | | | [place] [address] | | | | | | [phone] | | | | | | | | +--------+---------+ + + + | 12/20/ | Office | Otolaryngology | Ulysses Genao MD | | | 2019 | Visit | | [address] | | | | | | [address] [place] | | | | | | [place] [address] | | | | | | [phone] | | | | | | | | +--------+---------+ + + + | 02/15/ | Office | Internal Medicine | Alanis, | | | 2020 | Visit | | MD [place] | | | | | | [address] | | | | | | [place] [address] | | | | | | [phone] | | | | | | | | +--------+---------+ + + + documented as of this encounter Visit Diagnoses Not on filedocumented in this encounter"
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
--- OUTSIDE RECORDS SUMMARY | ~2019-12-13 | XMS | Encounter Summary ---
Demographics + + + | Address | [address] | | | [place] [address] | + + + | Home Phone [...] Team Providers + +------+ + | Care Lan/Wan Engineer Name | Role | Phone | + +------+ + PCP | Unavailable | + +------+ + Encounter Details +--------+ + + + + | Date | Type | Department | Care Team | Description | +--------+ + + + + | 09/14/ | Hospital | [facility] | Ruben Tobias | | | 2001 | Encounter | MED CTR SLEEP | MD Raji [address] | | | | | [place] [address] | [address] [facility] | | | | | [place], [place] | [place] [address] | | | | | [address] | [phone] | | | | | [phone] | | | +--------+ + + + [...] [facility] [address] | | | | | | [address] [place] | | | | | | [place] [address] | | | | | | [phone] | | | | | | | | +--------+---------+ + + + | 12/20/ | Office | Otolaryngology | Ulysses Genao MD | | | 2019 | Visit | | [address] | | | | | | [address] [place] | | | | | | [place] [address] | | | | | | [phone] | | | | | | | | +--------+---------+ + + + | 02/15/ | Office | Internal Medicine | Alanis, | | | 2019 | Visit | | MD [place] | | | | | | [address] [place] | | | | | | [place] [address] | | | | | | [phone] | | | | | | | | +--------+---------+ + + + documented as of this encounter Visit Diagnoses Not on filedocumented in this encounter"
--- OUTSIDE RECORDS SUMMARY | ~2019-12-13 | XMS | Encounter Summary ---
Demographics + + + | Address | [address] | | | [place] [address] | + + + | Home Phone [...] Providers + +------+ + | Care Transfer Station Operator Name | Role | Phone | [...] | | | | | hemorrhoid | [place], [place] | [address] [facility] | | | | | Rectal pain | [address] | [facility] | | | | | Procedures | | [address] [place], | | | | | CONSULT TO | | [place] | | | | | COLORECTAL | | [address] | | | | | SURGERY | | Phone: | | | | | | | [phone] | | | | | | | Fax: | | | | | | | [phone] | +--------+--------+ + + + + Encounter Details +--------+ + + + + | Date | Type | Department | Care Team | Description | +--------+ + + + + | 08/10/ | Service Girl | [facility] | Nuris Cardenas, ANP | Internal Hemorrhoid; | | 2008 | | [place] [address] [address] | | Rectal Pain | | | | [address] | | | | | | Mailcode: [id number] | | | | | | [facility] | | | | | | [place], [place] | | | | | | [address] | | | | | | [phone] | | | +--------+ + + + [...]
--- OUTSIDE RECORDS SUMMARY | ~2019-12-13 | XMS | Encounter Summary ---
Demographics + + + | Address | [address] | | | [place] [address] | + + + | Home Phone [...] Providers + +------+ + | Care Clinical Sciences Professor Name | Role | Phone | [...] + | 02/22/ | Refill | [facility] | Alanis, | Medication Refill | | 2017 | | MEDICINE [address] | MD Petrona | | | | | [place], | [address] [facility] | | | | | [place] [address] | [place] [address] | | | | | [phone] | [phone] | | | | | | | [...] Telephone Encounter - Maggie Montoya LPN - 02/24/2018 9:37 AM PDTLast appt: 01/15/18 Next appt: 03/16/18 docu mented in this encounter Plan of Treatment +--------+---------+ + + + | Date | Type | Specialty | Care Team | Description | +--------+---------+ + + + | 12/20/ | Office | Audiology | Elisabet Munson MS | | | 2019 | Visit | | [facility] [address] | | | | | | [address] [place] | | | | | | [place] [address] | | | | | | [phone] | | | | | | | | +--------+---------+ + + + | 12/20/ | Office | Otolaryngology | Ulysses Genao MD | | | 2019 | Visit | | [address] | | | | | | [place] | | | | | | [place] [address] | | | | | | [phone] | | | | | | | | +--------+---------+ + + + | 02/15/ | Office | Internal Medicine | Alanis, | | | 2019 | Visit | | MD Petrona | | | | | | [address] [place] | | | | | | [place] [address] | | | | | | [phone] | | | | | | | | +--------+---------+ + + + documented as of this encounter Visit Diagnoses Not on filedocumented in this encounter"
--- OUTSIDE RECORDS SUMMARY | ~2019-12-13 | XMS | Encounter Summary ---
Demographics + + + | Address | [address] | | | [place] [address] | + + + | Home Phone [...] Team Providers + +------+ + | Care Steward/Stewardess Bath Name | Role | Phone | + [...] | ANP | | | | | [facility] | | | | | | [address] | | | | | | Mailcode: CH15P | | | | | | [place] [facility] | | | | | | and Healing, | | | | | | Building ,[address]th | | | | | | Floor [place], [place] | | | | | | [address] | | | | | | [phone] | | | +--------+ + + + [...]
--- OUTSIDE RECORDS SUMMARY | ~2019-12-13 | XMS | Encounter Summary ---
Demographics + + + | Address | [address] | | | [place] [address] | + + + | Home Phone [...] Team Providers + +------+ + | Care Bloom Conveyor Operator Name | Role | Phone | [...] as of this encounter Progress Notes Interface, Reject Opener And Filler In - 01/12/2005 8:09 AM PDTClinic Date: [...] months. Chris Padgett M.D. ROSA / SHARIF [id number] / [id number] / [id number] / Tdocumented in this encounter Plan of Treatment Not on filedocumented as of this encounter Visit Diagnoses Not on filedocumented in this encounter"
--- OUTSIDE RECORDS SUMMARY | ~2019-12-13 | XMS | Encounter Summary ---
Demographics + + + | Address | [address] | | | [place] [address] | + + + | Home Phone [...] Team Providers + +------+ + | Care Analytical Sciences Director Name | Role | Phone | [...] 2006 | Visit | Rheumatology [address] | FREQUENCY CHECKER | (Primary Dx); | | | | [address] Sharmila Schilling | | Fibromyalgia; | | | | Mailcode: OPC5 | | Fibromyalgia | | | | Outpatient Clinic | | | | | | Building [place], | | | | | | [place] [address] | | | | | | [phone] | | | +--------+---------+ + + + [...] discomfort- entire abd around to back. Seeing [facility] pain clinic. Fentanyl patch helped pain a [...] + + +--------+ + + | OK INJECT TRIGGER | Procedures | Routin | Fibromyalgia | Ordered: 02/16/2007 | | POINTS, > 3 | | e | | | + + +--------+ + + | OK INJECT TRIGGER | Procedures | Routin | Fibromyalgia | Ordered: 02/16/2007 | | POINTS, > 3 | | e | Fibromyalgia | | + + +--------+ + + | OK INJECT TRIGGER | Procedures | Routin | [...]
--- OUTSIDE RECORDS SUMMARY | ~2019-12-13 | XMS | Encounter Summary ---
Demographics + + + | Address | [address] | | | [place] [address] | + + + | Home Phone [...] Team Providers + +------+ + | Care Chiropractic Practice Manager Name | Role | Phone | [...] + + | 01/04/ | Office | [facility] | Delfina Molina, | Spondylosis with | | 2006 | Visit | Pain Center at | ANP | Myelopathy, Lumbar | | | | [facility] | | Region; Herniated | | | | [address] | | Lumbar | | | | Mailcode: CH15P | | Intervertebral Disc | | | | [facility] | | L4-5; Left Knee | | | | and Healing, | | Pain; Opioid | | | | Building | | Dependence, | | | | Floor [place], [place] | | Continuous ([facility]); | | | | [address] | | Migraine Headache; | | | | [phone] | | Fibromyalgia | | | | | | syndrome 729.1; | | | | | | Major Depressive | | | | | | Disorder, Recurrent | | | | | | Episode, Moderate | | | | | | ([facility]); Adjustment | | | | | [...] Belinda Meehan is a 46 y.o. female [facility] Comprehensive Pain Center Return Visit [...] and Independent Home Exercise Program [facility] Pain Center Mail code CH 4P [place] [facility] and [place] [address] [facility] [address] Ailyn Foster - 01/05/20 07 1:29 [...] medication refills today? yes [facility] Plan of Treatment Not on filedocumented as [...]
--- OUTSIDE RECORDS SUMMARY | ~2019-12-13 | XMS | Encounter Summary ---
Demographics + + + | Address | [address] | | | [place] [address] | + + + | Home Phone [...] Team Providers + +------+ + | Care Drawbridge Operator Name | Role | Phone | [...] + | 02/18/ | Refill | [facility] | Alanis, | Results, Imaging | | 2017 | | MEDICINE [address] | MD Petrona | | | | | [place], | [address] [place] | | | | | [place] [address] | [place] [address] | | | | | [phone] | [phone] | | | | | | | [...] PDTPatient notified of MRI results elephone Encounter Maggie Ji LPN - 02/18/2018 4:43 PM P DTPatient notified of MRI results with comments/recommendations elephone Maggie Godinez LPN - 02/18 4:43 PM PDT----- Message [...] as needed Quantity Remainin Pharmacy: [facility] Call/Mail/[employer] Employee/Fax: fax Date of Last Refill: 09/22/17 Date [...] [place] | | | | | | [place] [address] | | | | | | [phone] | | | | | | | | +--------+---------+ + + + | 12/20/ | Office | Otolaryngology | Ulysses Genao MD | | | 2019 | Visit | | [address] | | | | | | [address] [place] | | | | | | [place] [address] | | | | | | [phone] | | | | | | | | +--------+---------+ + + + | 02/15/ | Office | Internal Medicine | Alanis, | | | 2019 | Visit | | MD Petrona | | | | | | [address] [place] | | | | | | [place] [address] | | | | | | [phone] | | | | | | | | +--------+---------+ + + + documented as of this encounter Visit Diagnoses Not on filedocumented in this encounter
--- OUTSIDE RECORDS SUMMARY | ~2019-12-13 | XMS | Encounter Summary ---
Demographics + + + | Address | [address] | | | [place] [address] | + + + | Home Phone [...] Providers + +------+ + | Care Customer Account Coordinator Name | Role | Phone [...] as of this encounter Progress Notes Interface, Methods And Procedures Analyst In - 03/26/2006 1:05 AM [facility] [place] [address] [place], [place] [address] or February 22, 2001 Pedrito Gutierrez M.D. [facility] [address] [place] [address] RE: BELINDA MEEHAN MR #: [id number] Dear [...] regarding this patient. Sincerely, Issac Meeks M.D. internet salesperson Division of Endocrinology, Diabetes, and Clinical Mold Runner, Metabolic Disorders Clinic PBD / HS [id number] / [id number] / [id number] / [id number] signed by Interface, Methods And Procedures Analyst In at 03/26/2006 1:05 AM PDTdocume nted in this encounter Plan of Treatment Not on filedocumented as of this encounter Visit Diagnoses Not on filedocumented in this encounter
--- OUTSIDE RECORDS SUMMARY | ~2019-12-13 | XMS | Encounter Summary ---
Demographics + + + | Address | [address] | | | [place] [address] | + + + | Home Phone [...] + +------+ + | Care Material Flow Analyst Name | Role | Phone | [...] Required | | | i, | [address] | | | | | osteoporosis | [address] | [place], | | | | | without | , MD [address] | [place] [address] | | | | | current | [address] | Phone: | | | | | pathological | [place], | [phone] | | | | | fracture | [place] | Fax: | | | | | | [address] | [phone] | | | | | | Phone: | | | | | | | [phone] | | | | | | | Fax: | | | | | | | [phone] | | +--------+ + + + + [...] + + | 09/20/ | Telephone | [facility] | Alanis, | Medication Orders | | 2018 | | MEDICINE [address] | MD Petrona | | | | | [place], | [address] [facility] | | | | | [place] [address] | [place] [address] | | | | | [phone] | [phone] | | | | | | | [...] Reclast was over a year ago at [facility] the exact date is unknown. Will relay this to Dr. Emmy and return phone call . elephon e Encounter - Pet[place]a Thapa MD - 09/21/2018 6:56 PM PDTCan you please find o ut when she received the last dose of Reclast. The next one is due in a year after the prev ious one. If she is due, please let me know. elephone Encounter - Adriana Cantor - 09/20/2018 12: 10 PM PDTPatient called asking to speak with the nurse. Patient stated she is calling to kelly on the status of an order for her IV medication for her osteoporosis. Please call gracia lewis to advise, . Electronically signed by Petrona [...] [facility] [address] | | | | | | [facility] | | | | | | [place] [address] | | | | | | [phone] | | | | | | | | +--------+---------+ + + + | 12/20/ | Office | Otolaryngology | Ulysses Genao MD | | | 2019 | Visit | | [address] | | | | | | [place] | | | | | | [place] [address] | | | | | | [phone] | | | | | | | | +--------+---------+ + + + | 02/15/ | Office | Internal Medicine | Alanis, | | | 2019 | Visit | | MD Petrona | | | | | | [address] [place] | | | | | | [place] [address] | | | | | | [phone] | | | | | | | [...]
--- OUTSIDE RECORDS SUMMARY | ~2019-12-13 | XMS | Encounter Summary ---
Demographics + + + | Address | [address] | | | [place] [address] | + + + | Home Phone [...] Team Providers + +------+ + | Care Reliability Specialist Name | Role | Phone | [...] | | | Ave Mailcode: CH4S | [facility] | | | | | [facility] | [place], [place] | | | | | and Healing, | [address] | | | | | [facility] | [phone] | | | | | Floor [place], [place] | | | | | | [address] | | | | | | [phone] | | | +--------+ + + + [...]
--- OUTSIDE RECORDS SUMMARY | ~2019-12-13 | XMS | Encounter Summary ---
[...] Providers + +------+ + | Care Jewelry Department Supervisor Name | Role | Phone | [...] | | | Metabolism | bypass | [address] | [address] | | | | | Hypovitamino | [address], | Ave | | | | | sis D B12 | [address] | [place], [place] | | | | | nutritional | [place], [place] | [address] | | | | | deficiency | [address] | Phone: | | | | | Other | Phone: | [phone] | | | | | protein-jose manuel | [phone] | Fax: | | | | | nick | Fax: | [phone] | | | | | malnutrition | [phone] | | | | | | Weight | | | | | | | gain | | | | | | | Procedures | | | | | | | CONSULT TO | | | | | | | ENDO | | | | | | | [address] | | | | | | | [address] | | | +--------+--------+ + + + [...] | | | | | | [facility] | | | | | | | Health and | | | | | | | Healing, | | | | | | | [address] | | | | | | | [place], [place] | | | | | | | [address] | | | | | | | Phone: | | | | | | | [phone] | | | | | | | Fax: | | | | | | | [phone] | +--------+--------+ + + + + Encounter Details +--------+---------+ + + + | Date | Type | Department | Care Team | Description | +--------+---------+ + + + | 09/23/ | Office | Digestive Health | Patricia Banegas, | H/O gastric bypass | | 2013 | Visit | Center at [address] | DIET TECH [address] | (Primary Dx); | | | | [address] | [facility] [address] | Hypovitaminosis D; | | | | Mailcode: Center | [place], [place] | B12 nutritional | | | | for Health and | [address] | deficiency; Other | | | | Healing, Building 2 | [phone] | protein-calorie | | | | [facility] [place] | | malnutrition; Weight | | | | [address] | | gain; Teeth decayed | | | | [phone] | | | +--------+---------+ + + + [...] make an appt with me Calories approx. 7697-8692 per day when 3 mos or more out from surgery to maintain weight l oss. Calories may need to be adjusted up for individual needs. I recommend eating 5-6 times per day. [employer] Protein 60-100+ gms per day Water: 64 oz per day, your urine should be light yellow. Please let up know if you would like a referral to see the Sister Superior. I would be happy to put in referrals to [facility], medical membership is $198 for 3 mos. If you are 12 mos or more out from surgery and would like referral for excess skin removal please let us know. Call us if you have any questions or concerns, or send Hello Chair message for non-urgent issue s. Patricia Banegas RN, [facility] Nurse Practitioner for Bariatric Surgery [facility] | CH[address]D [address] | [place], [place] | [address] | documented in this encounter Progress Notes [...] Hives Mainly in the legs Clindamycin Codeine Jxncnmg-Jbyvbndbiy-Afb-Caff Balance problems Fioricet W/Codeine (Czynoznqhq-Vqqgpqwpkh-Eak-Cod) Keflex (Cephalexin) Morphine IM ( only in [facility]) made gut pain worse 08/27/06: Trial [...] replacement 08/2007 right knee Lumbar fusion 05/2008 L5-W1coqooz with bone spur removals Appendectomy Cholecystectomy section [...] to POC and will call or send FastCustomer message if any issues. Start time 1325, end time 1353. I spent a total of 28 minutes face to face with this patie nt. Over 50% of visit was in counseling. ~ 2 Minutes of additional time spent reviewing chart prior to visit and documenting after t his visit. Patricia Banegas RN, [facility]- Nurse Practitioner for Bariatric Surgery [facility] | [address] | [place], [place] | [address] | documented in this e ncounter Plan [...]
--- OUTSIDE RECORDS SUMMARY | ~2019-12-13 | XMS | Encounter Summary ---
Demographics + + + | Address | [address] | | | [place] [address] | + + + | Home Phone [...] Providers + +------+ + | Care Senior Counsel Commercial Name | Role | Phone | + [...] + + | 09/02/ | Telephone | [facility] | Alanis, | Paperwork | | 2017 | | MEDICINE [address] [place] [address] | MD Petrona | | | | | [place], | [address] [facility] | | | | | [place] [address] | [place] [address] | | | | | [phone] | [phone] | | | | | | | [...] mileage/fuel. Will need to fax it to [phone] signed by Maggie Montoya LPN at 09/07/2017 3:45 PM PDTTelephone Encounter - Susie Gilmore - 09/04/2017 2:44 PM PDT1. Patient called again to ask for a letter stating she was in on the for fuel re imbursement. 2. Please fax a small note with her information and appointment date to [phone]. 3. Call patient to notify upon completion. [phone] elephone Encounter - Malissa Redd - 09/03/2017 2:25 PM PDTPatient called to check on status. Pl ease return her call [phone] signed by Malissa Redd at 09/03/2017 2:26 [...] | | | | | [place] [address] | | | | | | [phone] | | | | | | | | +--------+---------+ + + + | 12/20/ | Office | Otolaryngology | Ulysses Genao MD | | | 2019 | Visit | | [address] | | | | | | [address] [place] | | | | | | [place] [address] | | | | | | [phone] | | | | | | | | +--------+---------+ + + + | 02/15/ | Office | Internal Medicine | Alanis, | | | 2019 | Visit | | MD Petrona | | | | | | [address] [place] | | | | | | [place] [address] | | | | | | [phone] | | | | | | | | +--------+---------+ + + + documented as of this encounter Visit Diagnoses Not on filedocumented in this encounter"
--- OUTSIDE RECORDS SUMMARY | ~2019-12-13 | XMS | Encounter Summary ---
Demographics + + + | Address | [address] | | | [place] [address] | + + + | Home Phone [...] Providers + +------+ + | Care Underground Electrician Name | Role | Phone | [...] | | | [facility] | [place], [place] | | | | | [address] | [address] | | | | | [address] | [phone] | | | | | [facility] | | | | | | Physician's | | | | | | Pavilion [place], | | | | | | [place] [address] | | | | | | [phone] | | | +--------+ + + + [...]
--- OUTSIDE RECORDS SUMMARY | ~2019-12-13 | XMS | Encounter Summary ---
Demographics + + + | Address | [address] | | | [place] [address] | + + + | Home Phone [...] Providers + +------+ + | Care Rug Layer Name | Role | Phone | [...] + | 03/14/ | Refill | [facility] | Alanis, | Medication Refill | | 2018 | | MEDICINE [address] | MD Petrona | | | | | [place], | [address] [facility] | | | | | [place] [address] | [place] [address] | | | | | [phone] | [phone] | | | | | | | [...] Notes Telephone Encounter - Adriana Cantor - 03/14/2019 3:14 PM PDTPatient called checking o n the status of her refill request. She stated she needs this as soon as possible as she ca nnot afford to run out. Please call patient to advise. documented in this encounter Plan of Treatment +--------+---------+ + + + | Date | Type | Specialty | Care Team | Description | +--------+---------+ + + + | 12/20/ | Office | Audiology | Elisabet Munson MS | | | 2020 | Visit | | [facility] [address] | | | | | [address] [place] | | | | | | [place] [address] | | | | | | [phone] | | | | | | | | +--------+---------+ + + + | 12/20/ | Office | Otolaryngology | Ulysses Genao MD | | | 2019 | Visit | | [address] | | | | | | [address] [place] | | | | | | [place] [address] | | | | | | [phone] | | | | | | | | +--------+---------+ + + + | 02/15/ | Office | Internal Medicine | Alanis, | | | 2019 | Visit | | MD [place] | | | | | | [address] [place] | | | | | | [place] [address] | | | | | | [phone] | | | | | | | | +--------+---------+ + + + documented as of this encounter Visit Diagnoses Not on filedocumented in this encounter"
--- OUTSIDE RECORDS SUMMARY | ~2019-12-13 | XMS | Encounter Summary ---
Demographics + + + | Address | [address] | | | [place] [address] | + + + | Home Phone [...] Providers + +------+ + | Care Motor Vehicle Assembler Name | Role | Phone | [...] as of this encounter Progress Notes Interface, Technology Program Manager In - 08/30/2005 2:07 AM PST [id number] [facility] Date: 07/24/2005 Clinic: Surgery [...] for surgery. Chris Padgett M.D. ROSA / [id number] / [id number] / [id number] / [id number] Electronically signed by Chris Padgett 08-29-2005 03:28:14 PM documented i n this encounter Plan of Treatment Not on filedocumented as of this encounter Visit Diagnoses Not on filedocumented in this encounter"
--- OUTSIDE RECORDS SUMMARY | ~2019-12-13 | XMS | Encounter Summary ---
Demographics + + + | Address | [address] | | | [place] [address] | + + + | Home Phone [...] Providers + +------+ + | Care Dormitory Keeper Name | Role | Phone | [...] order); | | | | Ave Mailcode: [facility] | [address] | Diarrhea | | | | [facility] | [place], [place] | | | | | and Healing, | [address] | | | | | [place] [address] [facility] | [phone] | | | | | [place], [place] | | | | | | [address] | | | | | | [phone] | | | +--------+ + + + [...]
--- OUTSIDE RECORDS SUMMARY | ~2019-12-13 | XMS | Encounter Summary ---
Demographics + + + | Address | [address] | | | [place] [address] | + + + | Home Phone [...] Team Providers + +------+ + | Care Spot Welder Line Name | Role | Phone | [...] as of this encounter Progress Notes Interface, Tire Mounter In - 08/19/2005 2:05 AM PST [id number] [facility] Date: 07/29/2005 Clinic: Hematology [...] pursue aggressive iron supplementation. Lukasz Sellers M.D. photography sales associate [employer] / SHARIF [id number] / [id number] / [id number] / [id number] cc: Pedrito Gutierrez M.D. [address] [place] [address] Electronically signed by Lukasz Sellers 08-18-2005 01:28:12 PM documented i n this encounter Plan of Treatment Not on filedocumented as of this encounter Visit Diagnoses Not on filedocumented in this encounter"
--- OUTSIDE RECORDS SUMMARY | ~2019-12-13 | XMS | Encounter Summary ---
Demographics + + + | Address | [address] | | | [place] [address] | + + + | Home Phone [...] Team Providers + +------+ + | Care Erp Developer Name | Role | Phone | [...] Lab findings, | | 2006 | | Pyrites [address] | [address] | teaching, guidance, | | | | Ave Mailcode: CH4S | [address] | and counseling | | | | [facility] | [place], [place] | | | | | and Healing, | [address] | | | | | [facility] | [phone] | | | | | [place], [place] | | | | | | [address] | | | | | | [phone] | | | +--------+ + + + [...]
--- OUTSIDE RECORDS SUMMARY | ~2019-12-13 | XMS | Encounter Summary ---
Demographics + + + | Address | [address] | | | [place] [address] | + + + | Home Phone [...] Providers + +------+ + | Care Inventory Assistant Name | Role | Phone | + +------+ + | Sulaiman Carrera MD | PCP | | + +------+ + Reason for Visit + + + | Reason | Comments | + + + | Pain in right leg | | + + + | Knee pain | | + + + | Abdominal pain | | + + + | Head pain | | + + + | Low back pain | | + + + | Back pain | | + + + | Buttock pain | | + + + | Ankle pain | | + + + | Foot pain | | + + + Consultation (Routine) [...] | Management | Chronic | Taqueria Strong, RECREATION THERAPY AIDES TEACHER | Rosi Armijo, ANP | | | | | neck pain | [address] | [address] | | | | | Low back | ISMA[address] JOSSY | [place] | | | | | pain | [address] | [place], [place] | | | | | | [address] | [address] | | | | | | Phone: | | | | | | | [phone] | | | | | | | Fax: | | | | | | | [phone] | | +--------+--------+ + + + + Encounter Details +--------+---------+ + + + | Date | Type | Department | Care Team | Description | +--------+---------+ + + + | 08/09/ | Office | [facility] Comprehensive | Rosi Antonio, | Fibromyalgia | | 2013 | Visit | Pain Center at | ANP | syndrome 729.1 | | | | [facility] | | (Primary Dx); Major | | | | [address] | | depressive disorder, | | | | Mailcode: CH15P | | recurrent episode, | | | [facility] | | moderate ([facility]); | | | | and Healing, | | Adjustment disorder | | | | Building | | with anxiety; LBP | | | | Floor [place], [place] | | (low back pain); | | | | [address] | | Osteopenia; Chronic | | | | [phone] | | Bilateral Shoulder | | | | | | Pain; Post | | | | | | laminectomy | | | | | | syndrome; Chronic | | | | | | migraine; Pain in | | | | | | thoracic spine | +--------+---------+ + + + Social History [...] + + + | Blood Pressure | 128/65 | 08/09/2013 11:25 AM | | | | | PST | | + + + + + | Pulse | 71 | 08/09/2013 11:25 AM | | | | | PST | | + + + + + | Temperature | - | - | | + + + + + | Respiratory Rate | 13 | 08/09/2013 11:25 AM | | | | | PST | | + + + + + | Oxygen Saturation | 93% | 08/09/2013 11:25 AM | | | | | PST | | + + + + + | Inhaled Oxygen | - | - | | | Concentration | | | | + + + + + | Weight | 103.9 kg (229 lb) | 08/09/2013 11:25 AM | | | | | PST | | + + + + + | Height | 172.7 cm (5' 8") | 08/09/2013 11:25 AM | | | | | PST | | + + + + + | Body Mass Index | 34.82 | 08/09/2013 11:25 AM | | | | | PST | | + + + + + documented in this encounter Patient Instructions Patient Instructions Rosi Antonio ANP - 08/09/2013 12:30 PM PSTPlan: Today Belinda and I discussed her increase in pain since she has stopped her opioid therapy completely. Problem list: Migraine headaches: She will continue her lopressor for decreasing migraine frequency Fibromyalgia: It is quite an accomplishment to be off of opioids completely! Hang in there , this will help you health in the long run. It is important to do daily stretching and range of motion in your joints to keep your musc les and joints flexible Topiramate 50 mg can help both your fibromyalgia symptoms as well as migraine patterns. I r ecommend you continue this as directed. I recommend you start this oral supplement of amino acid, 1,000 mg twice a day. Acetyl L-carnitine has evidence of efficacy in relieving painful diabetic neuropathy, HIV a ssociated neuropathy, and chemotherapy induced neuropathy. The oral acetyl L-carnitine dos e is 500 to 1,000 mg three to four times a day. It is available without a prescription. ( References: Lauren AA. et al. Diabetes Care. 28(1):89-94, 2004; Anca M, [employer] Drugs. [address] 1:25-30; discussion 45-6, 2006; Dio SJ.et al.Neuroscience Letters. 397(3):219-23, 20 Oct 06.) Gabapentin therapy 2,700 mg daily in divided doses should continue. After another month of this therapy, we will re-evaluate your pain level and see if we should consider switching yo u to pregabalin (Lyrica) therapy. Today I will order spine x-rays, since you have acute pain in your mid-back after your fall last week. I have placed this order today. I will call you with the result. 3. Follow-up: Return to see me or another pain provider in two months as needed. [facility] documented in this encounter Progress Notes Rosi Antonio, ANP - 08/09/2013 12:03 PM PSTFormatting of this note might be different fro m the original. [facility] Comprehensive Pain Center Return Visit 08/09/2013 Belinda Meehan; ; : 1960 Chief Complaint Patient presents with Pain in right leg Knee pain Abdominal pain Head pain Low back pain Back pain Buttock pain Ankle pain Foot pain History of Present Illness: Belinda Meehan is a 49 y.o. year-old female with a history of chronic pain due to degenerative disc disease and arthrosis of multiple levels of the cervi wendi spine, bilateral knee pain, history of left knee arthroplasty due to DJD, headaches and fibromyalgia. She is former patient of Miranda Lambert NP in the pain center. Ms. Meehan was last seen by Dr. Murali Montero early June 2013 for evaluation of other p otential treatment for her pain syndromes. His treatment plan is as follows: 2 Schedule Physical Therapy. External order placed, pool therapy modality. 3. Suggest the following medication adjustments: 3.1 Consider increasing the duloxetine to 60 mg a day, this is more likely to help with fib romyalgia and chronic musculoskeletal pain. 3.2 Limiting daily dose of oxycodone is reasonable. 3.3 Another option would be to switch from gabapentin to pregabalin. We suggest starting pr egabalin (Lyrica) at 75 mg at night, then increase to twice a day. The target dose is 150 - 600 mg/day. The dose can be adjusted upwards every 3 - 7 days. Belinda Meehan was provided written instructions, we had a detailed PARQ discussion regarding this medication and its s gilbert effects, and she was instructed to call with any problems. Her primary care provider has stopped her opioid therapy, she tapered down and is completel y off and is in a lot of pain now. She has been on topiramate for about three weeks and has stopped tizanidine. She continues with Cymbalta 60 mg a day. Belinda does fall frequently, sh e feels she has poor balance, she is using a cane on a regular basis for steadiness. She had one fall forward onto her knees and has had mid-back thoracic level pain since this fall. S he did not seek medical care after this fall. She is adamant about never going to her local hospital in [place] for any medical evaluations. Belinda is very happy today, talking about her new grandchild who lives in her house. She is enjoying taking care of her. Patient Active Problem List Diagnosis Date Noted [...] Overview Note: Surgery 05/15/08 Dr Ricky Garnett [place] JEY karlos to get operative reports Osteopenia [...] and a pain drawing which I reviewed. [facility] Brief Pain Inventory: (ten= worst possible pain or complete interference) Right Now: 9 (08/09/13 1018) Least in 24 hours: 9 (08/09/13 1018) Worst in 24 hours: 9 (08/09/13 1018) Average: 9 (08/09/13 1018) % Relief (med/treat): 0 (08/09/13 1018) General Activity: 10 (08/09/13 1018) Mood: 9 (08/09/13 1018) Walking Ability: 10 (08/09/13 1018) Normal Work: 10 (08/09/13 1018) Relations with Others: 9 (08/09/13 1018) Enjoyment of Life: 10 (08/09/13 1018) Sexual Activity: 10 (08/09/13 1018) Sleep: 10 (08/09/13 1018) The pain is located in several regions, she notes pain in her right roman catholic, bilateral shoul crista muscles, left elbow, entire back, bilateral buttocks and hips, right leg pain greater th an the left, and left ankle pain. She rates her pain 10/10. She describes her pain as constant, dull, achy, burning and throbbing. She feels the pain is worsening. The pain is made better by nothing. The pain is made worse by sitting for too long, and standing too long. She has not had diagnostics or procedures. She reports no other change in past [...] ulcer disease) Scoliosis CVA (cerebral vascular accident) Metabolic syndrome X 250.80 Metabolic syndrome X 250.80 Past Surgical History Procedure Laterality Date Salpingo-oophorectomy Colonoscopy 03/2006 Tonsillectomy Pr d&c after delivery Pr inject trigger point, 1 or 2 Knee replacement 02/2007 Left knee Knee replacement 08/2007 right knee Lumbar fusion 05/2008, ' & L5-L3sdanxy with bone spur removals Appendectomy Cholecystectomy section [...] INJECTION SYRINGE 1 inj q month DULOXETINE 60 MG CAPSULE,DELAYED RELEASE Take 60 mg by mouth once daily. FUROSEMIDE 80 MG TABLET Take 80 mg by mouth two times daily. GABAPENTIN 300 MG TABLET Take 900 mg by mouth three times daily. LEVOTHYROXINE 50 MCG TABLET Take 75 mcg by mouth once daily. METHOCARBAMOL 750 MG TABLET Take 1-2 Tabs by mouth three times daily. METOPROLOL TARTRATE 50 MG TABLET Take 50 mg by mouth three times daily. MULTIVITAMIN TABLET 1 tab by mouth twice daily OMEPRAZOLE 20 MG CAPSULE,DELAYED RELEASE Take 20 mg by mouth two times daily. ONDANSETRON 4 MG DISINTEGRATING TABLET Take 4 mg by mouth every twelve hours as needed. POTASSIUM CHLORIDE ER 20 MEQ TABLET,EXTENDED RELEASE(PART/CRYST) take 3 tablet (20meq) by o ral route twice daily with food ROPINIROLE 0.5 MG TABLET Take 0.5 mg by mouth once daily in the evening. SUCRALFATE 1 GRAM TABLET Take 1 Tab by mouth before meals. TOPIRAMATE 50 MG TABLET Take 50 mg by mouth two times daily. TORSEMIDE 5 MG TABLET Take 5 mg by mouth once daily. TRAVOPROST 0.004 % EYE DROPS 1 drop once daily in the evening. Allergies Allergen Reactions Levaquin (Levofloxacin) Hives and Itching Amitriptyline Grand mal seizures Cipro (Ciprofloxacin) Clarithromycin Hives Mainly in the legs Clindamycin Codeine Vvoyury-Emsmnpphdw-Mrk-Caff Balance problems Fioricet W/Codeine (Sdesqovnff-Ewacpaasfl-Fli-Cod) Keflex (Cephalexin) Morphine IM ( only in [facility]) made gut pain worse 08/27/06: Trial of oral MSIR caused leg swelling Penicillins Sulfa (Sulfonamide Antibiotics) Tramadol Ms. Meehan reports no side effects. The Review of Systems provided by Ms. Meehan and documented by the [facility] was reviewed. This data was entered by the MA, I have reviewed it and have no additions. PE: BP 128/65 | Pulse 71 | RR 13 | Ht 1.727 m (5' 8") | Wt 103.874 kg (229 lb) | SpO2 93% | BMI 34.83 kg/(m^2) Appears healthy. Alert; in no acute distress. Pleasant. Oriented , interactive. Ambula nader with restrictions,using cane. Steady gait, walking slow and guarded. Skin pink, warm and dry. Heart rate regular, lungs clear to bases. Moving all extremities evenly. Has tenderness in shoulder joints, no synovitis or swelling. Normal ROM of shoulders. Left elbow has chronic deformities from prior fracture, has normal range. Hands are without swelling or pain. Abdomen is obese, soft with active bowel tones, non-tender. Lower extremities have tender in the thighs, no masses or spasms. Knees are without swelling and have normal range. Tender points: 04/01 Assessment: 729.1 Fibromyalgia syndrome 729.1 296.32 Major depressive disorder, recurrent episode, moderate 309.24 Adjustment disorder with anxiety 724.2 LBP (low back pain) 733.90 Osteopenia 719.41 Chronic Bilateral Shoulder Pain 722.80 Post laminectomy syndrome 346.72 Chronic migraine 724.1 Pain in thoracic spine Plan: Today Belinda and I discussed her increase in pain since she has stopped her opioid t herapy completely. Her functional level remains the same. She continues to be independent wi th walking and self care, she moves slow but can accomplish her activities of daily living. We discussed the following medical problems related to pain: Problem list: Migraine headaches: She will continue her lopressor for decreasing migraine frequency Fibromyalgia: It is quite an accomplishment to be off of opioids completely! Hang in there , this will help you health in the long run. It is important to do daily stretching and range of motion in your joints to keep your musc les and joints flexible. Topiramate 50 mg can help both your fibromyalgia symptoms as well as migraine patterns. I r ecommend you continue this as directed. I recommend you start this oral supplement of amino acid, 1,000 mg twice a day. Acetyl L-carnitine has evidence of efficacy in relieving painful diabetic neuropathy, HIV a ssociated neuropathy, and chemotherapy induced neuropathy. The oral acetyl L-carnitine dos e is 500 to 1,000 mg three to four times a day. It is available without a prescription. ( References: Lauren AA. et al. Diabetes Care. 28(1):89-94, 2004; Anca M, [employer] Drugs. [address] 1:25-30; discussion 45-6, 2006; Dio SJ.et al.Neuroscience Letters. 397(3):219-23, 20 Oct 06.) Gabapentin therapy 2,700 mg daily in divided doses should continue. After another month of this therapy, we will re-evaluate your pain level and see if we should consider switching yo u to pregabalin (Lyrica) therapy in the future. Today I will order spine x-rays, since you have acute pain in your mid-back after your fall last week. I have placed this order today. I will call you with the result. 3. Follow-up: Return to see me or another pain provider in two months as needed. I spent thirty minutes with the patient of which more than 50% was spent pcieg-hx-swgu in r eviewing pain questionnaire, medical record, consultation, discussion, addressing questions and counselling/education. [facility] MeganSarah Beth - 08/09 10:19 AM PSTCMA History: 1. Has your pain changed from your last visit? increased 2. Do your medications cause any side effects? NO 3. Have you had physical therapy appointments since your last visit? NO 4. Have you had psychology appointments since your last visit? NO 5. Have you had any diagnostic studies since your last appointment? NO 6. Do you require any medication refills today? YES ROS:. 1. BONES, JOINTS AND MUSCLES atrophy, cramps , joint pain, muscle pain, stiffness and swel ling 2. GASTROINTESTINAL SYSTEM change in appetite, changes in weight, dysphagia, nausea and ab dominal pain 3. GENITOURINARY SYSTEM urinary incontinence 4. NERVOUS SYSTEM numbness, weakness, vertigo, syncope and headache 5. PSYCHIATRIC HISTORY decreased energy, concentration and decreased or increased appeti te documented in this encounte r Plan of Treatment Not on filedocumented as of this encounter Results X-RAY SPINE THORACIC 2 [...] Final/Electronically | | | | | | signed / ANGELO | | | | | [...] | | + +---------+ + + | [facility] DEPARTMENT OF | | [...] disorder with anxiety | + + | LBP (low back pain) Lumbago | + + | Osteopenia Disorder of bone and cartilage, unspecified | + + | Chronic Bilateral Shoulder Pain Pain in joint, shoulder region | + + | Post laminectomy syndrome Postlaminectomy syndrome, unspecified region | + + | Chronic migraine Chronic migraine without aura, without mention of intractable | | migraine with status migrainosus | + + | Pain in thoracic spine | + + documented in this encounter
--- OUTSIDE RECORDS SUMMARY | ~2019-12-13 | XMS | Encounter Summary ---
Demographics + + + | Address | [address] | | | [place] [address] | + + + | Home Phone [...] Providers + +------+ + | Care Salvage Winder And Inspector Name | Role | Phone | [...] | | | | [place], | [address] | | | | | | [place] | Phone: | | | | | | [address] | [phone] | | | | | | Phone: | Fax: | | | | | | [phone] | [phone] | | | | | | Fax: | | | | | | | [phone] | | +--------+ + + + + + Reason for Visit +--------+ + | Reason | Comments | +--------+ + | Other | bladder/ bowel issues | +--------+ + Encounter Details +--------+---------+ + + + | Date | Type | Department | Care Team | Description | +--------+---------+ + + + | 10/15/ | Office | [facility] INTERNAL | Alanis, | Mixed stress and | | 2017 | Visit | MEDICINE [address] | MD [place] | urge urinary | | | | [address] [place], | [address] [facility] | incontinence | | | | [place] [address] | [place] [address] | (Primary Dx); OLIVER | | | | [phone] | [phone] | (obstructive sleep | | | | [...] (See Comments) Confused and questionable for seizures Bkenhrmfqi-Zble-Mpbeimnz Cephalexin Hives Duloxetine Migraines and nausea Ketorolac Hives Morphine Swelling Ropinirole Hcl Hives Tramadol Hcl Nausea Only Ddoivnkkgy-Mrsu-Lnqgrlzc Hives and Rash Ciprofloxacin Hives and Rash [...] warrant a GI consult. - * [facility] Gastroenterology - AMB Referral; Future 5. S/P gastric bypass - * [facility] - AMB Referral; Future 6. Nausea - ondansetron (ZOFRAN ODT) 4 mg disintegrating tablet; Take 1 tablet by mouth every 6 hours . Dispense: 120 tablet; Refill: 3 FOLLOW-UP Return in about 3 months (around 01/15/2018). Note: Parts of this documentwere created using [employer] speech recognition software. As a r esult, [...] [place] | | | | | | [place] [address] | | | | | | [phone] | | | | | | | | +--------+---------+ + + + | 12/20/ | Office | Otolaryngology | Ulysses Genao MD | | 2019 | Visit | | [address] | | | | | | [address] [place] | | | | | | [place] [address] | | | | | | [phone] | | | | | | | | +--------+---------+ + + + | 02/15/ | Office | Internal Medicine | Alanis, | | | 2019 | Visit | | [place] | | | | | | [address] [place] | | | | | | [place] [address] | | | | | | [phone] | | | | | | | | +--------+---------+ + + + + + +--------+ + + | Name | Type | Priori | Associated Diagnoses | Order Schedule | | | | ty | | | + + +--------+ + + | * TAHIR NDIAYE | Outpatient | Routin | Chronic [...] | | | | First dose on [facility] 10/15/17 at 1215 | | | | [...]
--- OUTSIDE RECORDS SUMMARY | ~2019-12-13 | XMS | Encounter Summary ---
Demographics + + + | Address | [address] | | | [place] [address] | + + + | Home Phone [...] Providers + +------+ + | Care Special Projects Manager Name | Role | Phone | [...] as of this encounter Progress Notes Interface, Supervisor Agricultural Education In - 12/07/2005 3:08 AM [facility] [place] [address] [place], [place] [address] or January 31, 2003 Pedrito Gutierrez M.D. [address] [place] [address] RE: BELINDA MEEHAN MR #: [id number] Dear Dr. Gutierrez: I had the pleasure [...] She had surgery 5 days ago in [place] on her right hand and wrist, for [...] time to help minimize her travel to [place]. In the meantime, please feel free to contact me if you have other questions, concerns, or suggestions regarding her condition. Sincerely, Issac Meeks M.D. resident programs assistant Division of Endocrinology, Diabetes, and Clinical Nutrition, Director of Metabolic Disorders Clinic [place]IQUE / SHARIF [id number] / [id number] / [id number] / Tdocumented in this encounter Plan of Treatment Not on filedocumented as of this encounter Visit Diagnoses Not on filedocumented in this encounter"
--- OUTSIDE RECORDS SUMMARY | ~2019-12-13 | XMS | Encounter Summary ---
Demographics + + + | Address | [address] | | | [place] [address] | + + + | Home Phone [...] Providers + +------+ + | Care Director Reactor Projects Name | Role | Phone | + [...] | | | | [id number] | [place], [place] | | | | | [address] | [address] | | | | | [place], [place] | [phone] | | | | | [address] | | | | | | [phone] | | | +--------+ + + + [...]
--- OUTSIDE RECORDS SUMMARY | ~2019-12-13 | XMS | Encounter Summary ---
Demographics + + + | Address | [address] | | | [place] [address] | + + + | Home Phone [...] Team Providers + +------+ + | Care Mixer Helper Name | Role | Phone | [...] | | | OFFICE VISIT | | [address] Phone: | | | | | REGULAR | | [phone] | | | | | | | Fax: | | | | | | | [phone] | +--------+--------+ + + + + Encounter Details +--------+---------+ + + + | Date | Type | Department | Care Team | Description | +--------+---------+ + + + | 12/30/ | Office | [facility] | Elisabet Munson MS | Subjective tinnitus | | 2018 | Visit | AUDIOLOGY AND | [facility] [address] | of left ear (Primary | | | | [facility] | [address] [place] | Dx) | | | | [address] | [place] [address] | | | | | [address] [place] | [phone] | | | | | [place] [address] | | | | | | [phone] | | | +--------+---------+ + + + [...] documented as of this encounter Progress Notes JeimyCeasarrafa ANUJ-A - 12/30/2017 1:30 PM PDTReferring Provider: [place] [...] | | | | | [place] [address] | | | | | | [phone] | | | | | | | | +--------+---------+ + + + | 12/20/ | Office | Otolaryngology | Ulysses Genao MD | | | 2019 | Visit | | [address] | | | | | | [address] [place] | | | | | | [place] [address] | | | | | | [phone] | | | | | | | | +--------+---------+ + + + | 02/15/ | Office | Internal Medicine | Alanis, | | | 2019 | Visit | | [place] | | | | | | [address] [place] | | | | | | [place] [address] | | | | | | [phone] | | | | | | | [...]
--- OUTSIDE RECORDS SUMMARY | ~2019-12-13 | XMS | Encounter Summary ---
Demographics + + + | Address | [address] | | | [place] [address] | + + + | Home Phone [...] Team Providers + +------+ + | Care Kelp Cutter Name | Role | Phone | [...] + + | 04/08/ | Telephone | [facility] Comprehensive | Rosi Antonio, | | | 2012 | | Pain Center at | ANP | | | | | [facility] | | | | | | [address] | | | | | | Mailcode: CH15P | | | | | | [facility] | | | | | | and Healing, | | | | | | | | | | | | Floor [place], [place] | | | | | | [address] | | | | | | [phone] | | | +--------+ + + + [...]
--- OUTSIDE RECORDS SUMMARY | ~2019-12-13 | XMS | Encounter Summary ---
Demographics + + + | Address | [address] | | | [place] [address] | + + + | Home Phone [...] Team Providers + +------+ + | Care Sawmill Production Worker Name | Role | Phone | [...] 05/29/ | Office | Pain Center at [facility] | Lukasz Charles, | Major Depressive | | 2005 | Visit | [address] | PhD [address] | Disorder, Recurrent | | | | Mailcode: CH15P | [place], [place] | Episode, Moderate | | | | [facility] | [address] | ([facility]); Chronic | | | | and Healing, | [phone] | Abdominal Pain; | | | | Building | | Cervical Pain; | | | | Floor [place], [place] | | Headache; Adjustment | | | | [address] | | Disorder with | | | | [phone] | | Anxiety; Other Pain | | [...] Notes Lukasz Charles - 05/29/[address] [facility] Psychological Wendy luation IDENTIFYING INFORMATION: Belinda Meehan is a 46 y.o. female Date of : 1960 Consulting Physician: LUKASZ CHARLES PHD Consultation Date: 05/29/2006 Referring Provider: Carlos Arreola Identifying Information: Belinda Meehan is a 46 y.o. female who lives in [facility] her 2 sons. The patient was referred [...] disability benefits. 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 Marital History: , not currently in [...] and decreasing depression and anx iety. Diagnosis: Burlington I: 1. (296.32) Major depressive disorder, recurrent, moderate. 2. (309.24) Adjustment disorder with anxiety. 3. 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 Burlington II: Deferred Bur[place] III: abdominal pain, migraine headache, low back pain. Bur[place] IV: low finances Burlington V: GAF 50 Recommendations: 1. Psychological counseling to increase knowledge and use of cognitive and behavioral pain coping skills is recommended. The treatment should include relaxation training to improve c ontrol over physiologic responses to pain. Treatment should also focus on decreasing sympto ms of depression and increasing participation in social, recreational and leisure activities . Ms. Meehan lives a long way from [place] but she has a solid waste truck driver provided by the [employer] she stated that she would like to [...] interpretation. LUKASZ CHARLES PHD [facility] [address] [place] [address] [facility], [address] [place] [address] documented [facility] Plan of Treatment + + +--------+ + + | Name | Type | Priori | Associated Diagnoses | Order Schedule | | | | ty | | | + + +--------+ + + | CT PSYCHIATRIC | Procedures | Routin | Major Depressive | Ordered: 05/29/2006 | | DIAGNOSTIC INTERVIEW | | e | Disorder, Recurrent | | | | | | Episode, Moderate | | | | | | ([facility]) Chronic | | | | | [...]
--- OUTSIDE RECORDS SUMMARY | ~2019-12-13 | XMS | Encounter Summary ---
Demographics + + + | Address | [address] | | | [place] [address] | + + + | Home Phone [...] Team Providers + +------+ + | Care Aquatic Facility Manager Name | Role | Phone | + +------+ + | Petrona Thapa | PCP | | | MD | | | + +------+ + Encounter Details +--------+ + + + + | Date | Type | Department | Care Team | Description | +--------+ + + + + | 11/23/ | Abstract | [facility] [place] | Carlos Hsieh | | | 2014 | | PHYSIATRY [address] | [address], [address] | | | | [address] | [place], [place] | | | | | [place], [place] | [address] | | | | | [address] | | | | | | [phone] | | | +--------+ + + + [...] | | | | | [place] [address] | | | | | | [phone] | | | | | | | | +--------+---------+ + + + | 12/20/ | Office | Otolaryngology | Ulysses Genao MD | | | 2019 | Visit | | [address] | | | | | | [address] [place] | | | | | | [place] [address] | | | | | | [phone] | | | | | | | | +--------+---------+ + + + | 02/15/ | Office | Internal Medicine | Alanis, | | | 2019 | Visit | | MD Petrona | | | | | | [address] | | | | | | [place] [address] | | | | | | [phone] | | | | | | | | +--------+---------+ + + + documented as of this encounter Visit Diagnoses Not on filedocumented in this encounter"
--- OUTSIDE RECORDS SUMMARY | ~2019-12-13 | XMS | Encounter Summary ---
Demographics + + + | Address | [address] | | | [place] [address] | + + + | Home Phone [...] + | Care Director Of Student Financial Aid Name | Role | Phone | + [...] + + | 06/21/ | Office | [facility] | Delfina Molina, | LBP (Low Back Pain) | | 2008 | Visit | Pain Center at | ANP | (Primary Dx); Spinal | | | | [facility] | | Fusion Lumbar spine | | | | [address] | | ; Hx Arthroplasty | | | | Mailcode: CH15P | | of both Knees; | | | | Center for [facility] | | Fibromyalgia | | | | and Healing, | | syndrome 729.1; | | | | | | Abdominal Pain, | | | | Floor [place], [place] | | dumping syndrome Hx | | | | [address] | | of gastric bypass; | | | | [phone] | | Dumping Syndrome; | | | [...] Belinda Meehan is a 48 y.o. female [facility] Return Visit Chief Complaint: [...] removal on 05/15/2008 Dr. Betty Thomas MD [facility], after having problems with nu mbness, [...] a migraine sp ecialist this week in [place], Dr Lucio Nichols. Next area of chronic [...] drawing has be completed, which I reviewed. [facility] Brief Pain Inventory: (ten= worst [...] 3. Mental Health care: Dr Ogden psychology [facility] last visit today . She [...] 300 mg) by oral route once daily derjlhfxgh-hrnwvcvrjsvwg-tptidalh (FIORICET) 50-325-40 mg Oral Tablet take 2 [...] 278 01/18 Paniculectomy Hx lumbar fusion 05/2008 L1-J2fvrygp with bone spur removals Family History Problem [...] psychologist when ever sh e comes to [place] for medical care. She has a strong [...] any concerns or questions. DELFINA MOLINA [facility] Mail code CH 4P [facility] [address] [facility] [address] Ty Mendez - 12/2008 9:11 AM PSTCMA History: PMH/PSH/SH/FH review Patient had lumbar fusion in May 22. She also reports tooth abcess. She has script for an tibiotic tx waiting for her in [place]. 1. Has your pain changed from your [...]
--- OUTSIDE RECORDS SUMMARY | ~2019-12-13 | XMS | Encounter Summary ---
Demographics + + + | Address | [address] | | | [place] [address] | + + + | Home Phone [...] Team Providers + +------+ + | Care Babysitter Name | Role | Phone | [...] | Refill | Kraig Turner | Beto eMeks MD | Refill Request | | 2010 | | [facility] | [address] | (actonel) | | | | [facility] | [place], [place] | | | | | [address] | [address] | | | | | [address] | [phone] | | | | | [facility] | | | | | | Physician's | | | | | | Pavilion [place], | | | | | | [place] [address] | | | | | | [phone] | | | +--------+--------+ + + + [...]
--- OUTSIDE RECORDS SUMMARY | ~2019-12-13 | XMS | Encounter Summary ---
Demographics + + + | Address | [address] | | | [place] [address] | + + + | Home Phone [...] Providers + +------+ + | Care General Manager Name | Role | Phone | [...] + + | 07/17/ | Telephone | [facility] | Alanis, | Medical Problem | | 2017 | | MEDICINE [address] | MD Petrona | | | | | [place], | [address] [facility] | | | | | [place] [address] | [place] [address] | | | | | [phone] | [phone] | | | | | | | [...] | | | | | [place] [address] | | | | | | [phone] | | | | | | | | +--------+---------+ + + + | 12/20/ | Office | Otolaryngology | Ulysses Genao MD | | | 2019 | Visit | | [address] | | | | | | [address] [place] | | | | | | [place] [address] | | | | | | [phone] | | | | | | | | +--------+---------+ + + + | 02/15/ | Office | Internal Medicine | Alanis, | | | 2019 | Visit | | MD Petrona | | | | | | [address] [place] | | | | | | [place] [address] | | | | | | [phone] | | | | | | | | +--------+---------+ + + + documented as of this encounter Visit Diagnoses Not on filedocumented in this encounter"
--- OUTSIDE RECORDS SUMMARY | ~2019-12-13 | XMS | Encounter Summary ---
Demographics + + + | Address | [address] | | | [place] [address] | + + + | Home Phone [...] Team Providers + +------+ + | Care Locksmith Helper Name | Role | Phone | [...] + + | 04/04/ | Telephone | [facility] | Alanis, | Toe Fracture | | 2019 | | MEDICINE [address] | MD Petrona | | | | | [place], | [address] [facility] | | | | | [place] [address] | [place] [address] | | | | | [phone] | [phone] | | | | | | | [...] - 04/05/2019 11:26 AM PDTPatient notified of MD bailey mment elephone Petrona Richter MD - 04/05/2019 11:04 AM PDTIf her caustic room operator does not see the necessity of getting an x-ray, I do not think it would be very helpful to get one.Electr onically signed by Petrona Thapa MD at 04/05/2019 11:06 AM PDTTelephone Susanna Sibley - 04/04/2019 3:08 PM PDTPatient called regarding her big toe, states she thinks its still broken and she can't seem to get an x-ray from the caustic room operator. Please a dvise. documented in this e [...] | | | | | [place] [address] | | | | | | [phone] | | | | | | | | +--------+---------+ + + + | 12/20/ | Office | Otolaryngology | Ulysses Genao MD | | | 2019 | Visit | | [address] | | | | | | [address] [place] | | | | | | [place] [address] | | | | | | [phone] | | | | | | | | +--------+---------+ + + + | 02/15/ | Office | Internal Medicine | Alanis, | | | 2019 | Visit | | MD Petrona | | | | | | [address] | | | | | | [place] [address] | | | | | | [phone] | | | | | | | | +--------+---------+ + + + documented as of this encounter Visit Diagnoses Not on filedocumented in this encounter"
--- OUTSIDE RECORDS SUMMARY | ~2019-12-13 | XMS | Encounter Summary ---
Demographics + + + | Address | [address] | | | [place] [address] | + + + | Home Phone [...] Providers + +------+ + | Care Rotary Drum Dyer Name | Role | Phone | + +------+ + | Petrona Thapa | PCP | | | MD | | | + +------+ + Encounter Details +--------+ + + + + | Date | Type | Department | Care Team | Description | +--------+ + + + + | 12/07/ | Abstract | [facility] [place] [facility] | Alanis, | | | 2017 | | MEDICINE [address] | MD Petrona | | | | | [address] [place], | [address] [facility] | | | | | [place] [address] | [place] [address] | | | | | [phone] | [phone] | | | | | | | [...] | 2019 | Visit | | [facility] [address] | | | | | | [address] [place] | | | | | | [place] [address] | | | | | | [phone] | | | | | | | | +--------+---------+ + + + | 12/20/ | Office | Otolaryngology | Ulysses Genao MD | | | 2019 | Visit | | [address] | | | | | | [address] [place] | | | | | | [place] [address] | | | | | | [phone] | | | | | | | | +--------+---------+ + + + | 02/15/ | Office | Internal Medicine | Alanis, | | | 2019 | Visit | | MD Petrona | | | | | | [address] [place] | | | | | | [place] [address] | | | | | | [phone] | | | | | | | [...] Results for this | | STUDY MARI GILLIAM | e | | | procedure are in the | | ASSESSMENT | | | | results section. | + +--------+ + + + documented in this encounter Results DEXA Bone Density mari Bray (04/01/2016) + +-------+ + + + [...]
--- OUTSIDE RECORDS SUMMARY | ~2019-12-13 | XMS | Encounter Summary ---
Demographics + + + | Address | [address] | | | [place] [address] | + + + | Home Phone [...] Team Providers + +------+ + | Care Bundle Cutter Name | Role | Phone | [...] + + | 05/16/ | Office | [facility] | Alanis, | Chronic diarrhea | | 2019 | Visit | MEDICINE [address] [place] [address] | MD Petrona | (Primary Dx); | | | | [address] [place], | [address] [place] [address] | [place] | | | | [place] [address] | [place] [address] | gastric bypass; | | | | [phone] | [phone] | Fibromyalgia; Fatty | | | | [...] COPD (chronic obstructive pulmonary disease) ([facility]) Depression Diarrhea Dumping syndrome Fall at home Fatigue fracture of vertebra Fibromyalgia Full dentures GERD (gastroesophageal reflux disease) Glaucoma Hyperparathyroidism ([facility]) Hypothyroidism IBS (irritable bowel syndrome) Idiopathic scoliosis Leg edema Low back pain Lumbar postlaminectomy syndrome Lumbar radiculopathy primarily right 01/04/2015 Meniere syndrome Migraine with aura Migraines Muscle cramping Muscle spasm Myalgia Nausea Nonalcoholic hepatosteatosis Obesity Opioid dependence ([facility]) Orthostatic hypotension OLIVER (obstructive sleep apnea) Osteoarthritis, generalized Osteopenia Osteoporosis Palpitations Peripheral neuropathy Rheumatoid arthritis ([facility]) Right arm pain 01/04/2015 RLS (restless legs syndrome) S/P lumbar fusion 01/04/2015 Scoliosis Sleep apnea Spondylosis with myelopathy, lumbar region Stroke ([facility]) Syncope Tremor Type II or unspecified [...] Procedure: COLONOSCOPY; Surgeon: Luther Brito MD; Location: [facility] MEDICAL PROCEDURE UNIT DILATION AND CURETTAGE OF UTERUS ELBOW SURGERY FINGER TRIGGER RELEASE 2002 FINGER TRIGGER RELEASE 2009 GASTRIC BYPASS SURGERY 2004 HYSTERECTOMY 05/14/1980 JOINT REPLACEMENT Bilateral 2007 2008 KNEE ARTHROSCOPY 2005 LAPAROSCOPY 01/27/2015 LAPAROTOMY 2008 ROTATOR CUFF REPAIR 2004 SPINE SURGERY TONSILLECTOMY 1964 UPPER GASTROINTESTINAL ENDOSCOPY N/A 12/18/2017 Procedure: EGD; Surgeon: Luther Brito MD; Location: [facility] MEDICAL PROCEDURE UNIT CURRENT MEDICATIONS [...] Allergen Reactions Ensure Diarrhea Food Diarrhea Lactose Yxcvwahxvl-Zpu-Vyzp-Codeine Other (See Comments) Balance problems Codeine Sulfate Nausea Only Food Allergy Formula Diarrhea Ensure Levofloxacin Hives, Itching and Rash Butalbital Ropinirole Amitriptyline Hcl Other (See Comments) Confused and questionable for seizures Nyajzreykb-Eexo-Igasmwsf Rash duplicate Xdlqyrsrsu-Gjcm-Ibfcsizq Hives and Rash Cephalexin Hives Ciprofloxacin Hives [...] 1. Parts of this documentwere created using [employer] speech recognition software. As a resu lt, [...] | | | | | [place] [address] | | | | | | [phone] | | | | | | | | +--------+---------+ + + + | 12/20/ | Office | Otolaryngology | Ulysses Genao MD | | | 2019 | Visit | | [address] | | | | | | [address] [place] | | | | | | [place] [address] | | | | | | [phone] | | | | | | | | +--------+---------+ + + + | 02/15/ | Office | Internal Medicine | Alanis, | | | 2019 | Visit | | MD Petrona | | | | | | [address] [place] | | | | | | [place] [address] | | | | | | [phone] | | | | | | | [...]
--- OUTSIDE RECORDS SUMMARY | ~2019-12-13 | XMS | Encounter Summary ---
Demographics + + + | Address | [address] | | | [place] [address] | + + + | Home Phone [...] Team Providers + +------+ + | Care Matting Press Tender Name | Role | Phone [...] + + | 02/11/ | Telephone | [facility] | Alanis, | Arm Pain (Right Arm) | | 2017 | | MEDICINE [address] | MD Petrona | | | | | [place], | [address] [facility] | | | | | [place] [address] | [place] [address] | | | | | [phone] | [phone] | | | | | | | [...] Visit | | [facility] [address] | | | | | | [address] [place] | | | | | | [place] [address] | | | | | | [phone] | | | | | | | | +--------+---------+ + + + | 12/20/ | Office | Otolaryngology | Ulysses Genao MD | | | 2019 | Visit | | [address] | | | | | | [address] [place] | | | | | | [place] [address] | | | | | | [phone] | | | | | | | | +--------+---------+ + + + | 02/15/ | Office | Internal Medicine | Alanis, | | | 2019 | Visit | | MD Petrona | | | | | | [address] [place] | | | | | | [place] [address] | | | | | | [phone] | | | | | | | | +--------+---------+ + + + documented as of this encounter Visit Diagnoses Not on filedocumented in this encounter"
--- OUTSIDE RECORDS SUMMARY | ~2019-12-13 | XMS | Encounter Summary ---
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 I have given [...] 4 months. Caitlin Rivera M.S., F.N.P. / [id number] / [id number] / [id number] / [id number] cc: Pedrito Gutierrez M.D. [address] [place], [place] [address]Rehdtsyixggycj signed by Interface, Intranet Specialist In at 01/12/2005 6:3 2 AM PDTdocumented in this encounter Plan of Treatment Not on filedocumented as of this encounter Visit Diagnoses Not on filedocumented in this encounter"
--- OUTSIDE RECORDS SUMMARY | ~2019-12-13 | XMS | Encounter Summary ---
Demographics + + + | Address | [address] | | | [place] [address] | + + + | Home Phone [...] Pain Management | Sees pain clinic in [facility], Was switched to [facility] | | | Transbuccal every 12 hrs [...] [address] | MD Petrona | (Primary Dx); | | | | [address] [place], | [address] [place] | Acquired | | | | [place] [address] | [place] [address] | hypothyroidism; | | | | [phone] | [phone] | Chronic bilateral | | | | [...] encounter Progress Notes Maggie Montoya LPN - 06/01/2017 10:45 AM PST Administrations [...] with Pain Management Sees pain clinic in [facility], Was switched to [facility] 150mc Transbuccal every 12 hrs Results, Imaging HPI Belinda Meehan is a 57 y.o. y/o female who presents today for f/u for several issues: Has had a visit w/ the pain in the [place], [place], and they gave her a trial of [...] on monthly B12 in [facility] for the last several months. REVIEW OF SYSTEMS See HPI for further details. Review of systems otherwise negative. PAST MEDICAL HISTORY Past Medical History: Diagnosis Date Arthritis Atypical chest pain Benign essential hypertension Blind left eye Cervical radiculopathy Chronic low back pain 01/04/2015 Chronic neck pain 01/04/2015 Chronic pain Chronic venous insufficiency Coccydynia COPD (chronic obstructive pulmonary disease) ([facility]) Depression Diarrhea Dumping syndrome Fatigue fracture of vertebra Fibromyalgia Glaucoma Hyperparathyroidism ([facility]) Hypothyroidism IBS (irritable bowel syndrome) Idiopathic scoliosis Leg edema Lumbar postlaminectomy syndrome Lumbar radiculopathy primarily right 01/04/2015 Meniere syndrome Migraines Muscle cramping Muscle spasm Myalgia Nonalcoholic hepatosteatosis Obesity Opiate dependence ([facility]) Orthostatic hypotension OLIVER (obstructive sleep apnea) Osteoarthritis, generalized Osteopenia Osteoporosis Peripheral neuropathy ([facility]) Rheumatoid arthritis ([facility]) Right arm pain 01/04/2015 RLS (restless legs syndrome) S/P lumbar fusion 01/04/2015 Scoliosis Spondylosis with myelopathy, lumbar region Stroke ([facility]) Syncope Tremor Type II or unspecified type [...] (See Comments) Confused and questionable for seizures Lqwcjccraa-Nbnl-Ygbbcuhs Cephalexin Hives Ketorolac Hives Morphine Swelling Tramadol Hcl Nausea Only Yeewomlfkv-Otxe-Nrgnaqiq Hives and Rash Ciprofloxacin Hives and Rash [...] Note: Parts of this documentwere created using iFLYER speech recognition software. As a r esult, [...] | | 2019 | Visit | | [facility] [address] | | | | | | [address] [place] | | | | | | [place] [address] | | | | | | [phone] | | | | | | | | +--------+---------+ + + + | 12/20/ | Office | Otolaryngology | Ulysses Genao MD | | | 2019 | Visit | | [address] | | | | | | [address] [place] | | | | | | [place] [address] | | | | | | [phone] | | | | | | | | +--------+---------+ + + + | 02/15/ | Office | Internal Medicine | Alanis, | | | 2019 | Visit | | MD Petrona | | | | | | [address] [place] | | | | | | [place] [address] | | | | | | [phone] | | | | | | | [...]
--- OUTSIDE RECORDS SUMMARY | ~2019-12-13 | XMS | Encounter Summary ---
Demographics + + + | Address | [address] | | | [place] [address] | + + + | Home Phone [...] Providers + +------+ + | Care Reliability Engineer Name | Role | Phone | [...] | | | | | abdominal | [place] | [address] [facility] | | | | | pain | Health & | [facility] | | | | | Procedures | Science | [address] [place], | | | | | REQUEST TO | University | [place] | | | | | SURGERY | [address] | [address] | | | | | SALES PROMOTION COORDINATOR | Naeem Mcrae | Phone: | | | | | [place] | Rd | [phone] | | | | | EXPLORATORY | [place], [place] | Fax: | | | | | OF ABDOMEN | [address] | [phone] | | | | | [place] FREE[place] [...] | | | | | | [address] [place], | | | | | | | [place] | | | | | | | [address] | | | | | | | Phone: | | | | | | | [phone] | | | | | | | Fax: | | | | | | | [phone] | +--------+--------+ + + + + Encounter [...] | | [facility] | [place], [place] | | | | | and Healing, | [address] | | | | | Building 1, 6th | [phone] | | | | | Floor [place], [place] | | | | | | [address] | | | | | | [phone] | | | +--------+---------+ + + + [...] resident s note. CHRIS RUANO MD [facility] [address] [facility] 6th [place] [address] Chris Peralta - 10:55 AM [...] not work at this time. Lives in [place], [place] FH: Noncontributory ROS: No recent fevers, [...] + | [facility] | [address] | [place] [address] | | | PATHOLOGY | [address] | | | + + + + + | [facility] | [address] | [place] [address] | | | PATHOLOGY | [address] [...]
--- OUTSIDE RECORDS SUMMARY | ~2019-12-13 | XMS | Encounter Summary ---
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 female [facility] Comprehensive Pain Center Return Visit Chief [...] drawing has be completed, which I reviewed. [facility] Brief Pain Inventory: Right Now: 9 [...] Result Impression NAME: BELINDA MEEHAN MR #: [id number] DATE OF EXAM: [id number] PHYSICIAN: EMMA ROJAS [...] DISK BULGE. Transcribed By: Armaan Mata : [id number] : 1442 Approved By: Radiologist: Physical Examination: [...] seeing Nathalia Arora PT here at the [facility] to address her back pain [...] vs Hernia. 6. PT here at the [facility] available 7. Repeat TESI as needed. DELFINA MOLINA [facility] COMPRE[facility]ENSIVE PAIN C[facility] Mail code CH 4P [facility] and [address] [address] JasenTy montilla - 9:12 AM [...]
--- OUTSIDE RECORDS SUMMARY | ~2019-12-13 | XMS | Encounter Summary ---
Demographics + + + | Address | [address] | | | [place] [address] | + + + | Home Phone [...] Team Providers + +------+ + | Care Hoistman Name | Role | Phone | + +------+ + | Maria Esther Cintron MD | PCP | | + +------+ + Encounter Details +--------+ + + + + | Date | Type | Department | Care Team | Description | +--------+ + + + + | 02/16/ | Telephone | [facility] | Chris Padgett, | | | 2007 | | [place] [address] | [address] [facility] [employer] | | | | | Bethanie Mailcode: CH4S | [address] | | | | | [facility] | [place], [place] | | | | | and Healing, | [address] | | | | | Building , 6th | [phone] | | | | | Floor [place], [place] | | | | | | [address] | | | | | | [phone] | | | +--------+ + + + [...]
--- OUTSIDE RECORDS SUMMARY | ~2019-12-13 | XMS | Encounter Summary ---
Demographics + + + | Address | [address] | | | [place] [address] | + + + | Home Phone [...] | Procedures | [facility] | Mailcode: | | | | | CONSULT TO | Rd | [facility] | | | | | NEUROLOGY | [place], [place] | for Health | | | | | | [address] | and Healing, | | | | | | Phone: | Building 1, | | | | | | [phone] | 8th Floor | | | | | | | [place], [place] | | | | | | | [address] | | | | | | | Phone: | | | | | | | [phone] | | | | | | | Fax: | | | | | | | [phone] | +--------+--------+ + + + + Encounter Details +--------+---------+ + + + | Date | Type | Department | Care Team | Description | +--------+---------+ + + + | 03/24/ | Office | Neurology at | Taniya Guerrero, | Migraine Headache | | 2007 | Visit | [facility] & | | (Primary Dx) | | | | Healing [address] | | | | | | [place] Mailcode: CH8C | | | | | | [facility] | | | | | | and Healing, | | | | | | Building | | | | | | Floor [place], [place] | | | | | | [address] | | | | | | [phone] | | | +--------+---------+ + + + [...] low blood pressure. 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 Social History Main Topics [...] touch symmetrically throughout. Cerebellar testing shows normal blbdtb-dt-iken and finger tapping. On gait testing, she [...] the names of 3 headache specialists in [place]- Dr. Koby García, Dr. Dakota Sweet and [...]
--- OUTSIDE RECORDS SUMMARY | ~2019-12-13 | XMS | Encounter Summary ---
Demographics + + + | Address | [address] | | | [place] [address] | + + + | Home Phone [...] Team Providers + +------+ + | Care Automation Test Engineer Name | Role | Phone [...]
--- OUTSIDE RECORDS SUMMARY | ~2019-12-13 | XMS | Encounter Summary ---
Demographics + + + | Address | [address] | | | [place] [address] | + + + | Home Phone [...] Providers + +------+ + | Care Chief Information Officer Name | Role | Phone | [...] | | low back | Sulaiman-Russell | Lund | | | | | pain without | , MD [address] | [place], [place] | | | | | sciatica | [address] | [address] | | | | | Lumbar | [place], | Phone: | | | | | stenosis | [place] | [phone] | | | | | Opiate | [address] | Fax: | | | | | dependence, | Phone: | [phone] | | | | | continuous | [phone] | | | | | | (HCC) | Fax: | | | | | | | [phone] | | +--------+ + + + + + Reason for Visit + + + | Reason | Comments | + + + | Medication Refill | | + + + Encounter Details +--------+---------+ + + + | Date | Type | Department | Care Team | Description | +--------+---------+ + + + | 02/23/ | Office | [facility] | Emmy-Tacliffordti, | B12 deficiency | | 2017 | Visit | MEDICINE [address] [place] [address] | MD Petrona | (Primary Dx); | | | | [address] [place], | [address] [facility] | Chronic bilateral | | | | [place] [address] | [place] [address] | low back pain | | | | [phone] | [phone] | without sciatica; | | | | [...] AM PDTWe are referr ing you to [facility] in [place]. B12 shot today. documented in this encounter [...] She states she is interested in seein a pain clinic in [facility] as she [place] an [place] resident. No drowsiness confusion or f alls. No alcohol or illicit drugs. She also has history of B12 deficiency and use take B12 injections for it on a monthly basi s. She is interested in getting one today. REVIEW OF SYSTEMS See [facility] for further details. Review of systems otherwise negative. PAST MEDICAL HISTORY Past Medical History: Diagnosis Date Arthritis Benign essential hypertension Blind left eye Chronic low back pain 01/04/2015 Chronic neck pain 01/04/2015 Chronic pain COPD (chronic obstructive pulmonary disease) ([facility]) Depression Diarrhea Dumping syndrome Fibromyalgia Hyperparathyroidism ([facility]) Hypothyroidism IBS (irritable bowel syndrome) Lumbar radiculopathy primarily right 01/04/2015 Meniere syndrome Migraine Migraines Obesity OLIVER (obstructive sleep apnea) Osteoarthritis, generalized Osteopenia Osteoporosis Peripheral neuropathy ([facility]) Rheumatoid arthritis ([facility]) Right arm pain 01/04/2015 RLS (restless legs syndrome) S/P lumbar fusion 01/04/2015 Scoliosis Stroke ([facility]) Syncope Tremor FAMILY HISTORY Family History Problem [...] Reactions Levofloxacin Hives and Itching Amitriptyline Hcl Sxlxeunome-Dwvk-Yfoblqdg Cephalexin Ciprofloxacin Clarithromycin Clindamycin Hcl Codeine Sulfate [...] | | | | | [place] [address] | | | | | | [phone] | | | | | | | | +--------+---------+ + + + | 12/20/ | Office | Otolaryngology | Ulysses Genao MD | | | 2019 | Visit | | [address] | | | | | | [address] [place] | | | | | | [place] [address] | | | | | | [phone] | | | | | | | | +--------+---------+ + + + | 02/15/ | Office | Internal Medicine | Alanis, | | | 2019 | Visit | | MD Petrona | | | | | | [address] [place] | | | | | | [place] [address] | | | | | | [phone] | | | | | | | [...]
--- OUTSIDE RECORDS SUMMARY | ~2019-12-13 | XMS | Encounter Summary ---
Demographics + + + | Address | [address] | | | [place] [address] | + + + | Home Phone [...] Team Providers + +------+ + | Care Casting Associate Name | Role | Phone | [...] + + | 04/19/ | Telephone | [facility] | Alanis, | Lab Results | | 2018 | | MEDICINE [address] | MD Petrona | | | | | [place], | [address] [facility] | | | | | [place] [address] | [place] [address] | | | | | [phone] | [phone] | | | | | | | [...] [facility] [address] | | | | | | [address] [place] | | | | | | [place] [address] | | | | | | [phone] | | | | | | | | +--------+---------+ + + + | 12/20/ | Office | Otolaryngology | Ulysses Genao MD | | | 2019 | Visit | | [address] | | | | | | [address] [place] | | | | | | [place] [address] | | | | | | [phone] | | | | | | | | +--------+---------+ + + + | 02/15/ | Office | Internal Medicine | Alanis, | | | 2019 | Visit | | MD Petrona | | | | | | [address] [place] | | | | | | [place] [address] | | | | | | [phone] | | | | | | | | +--------+---------+ + + + documented as of this encounter Visit Diagnoses Not on filedocumented in this encounter"
--- OUTSIDE RECORDS SUMMARY | ~2019-12-13 | XMS | Encounter Summary ---
Demographics + + + | Address | [address] | | | [place] [address] | + + + | Home Phone [...] Providers + +------+ + | Care Floor Trader Name | Role | Phone | [...] 05/29/ | Office | Pain Center at [facility] | Lukasz Charles, | Major Depressive | | 2005 | Visit | [address] | PhD [address] | Disorder, Recurrent | | | | Mailcode: CH15P | [place], [place] | Episode, Moderate | | | | [place] [facility] | [address] | ([facility]); Chronic | | | | and Healing, | [phone] | Abdominal Pain; | | | | Building | | Cervical Pain; | | | | Floor [place], [place] | | Headache; Adjustment | | | | [address] | | Disorder with | | | | [phone] | | Anxiety; Other Pain | | [...] Notes Lukasz Charles - 05/29/2006 6:15 PM [facility] Initial Psychological Wendy luation IDENTIFYING INFORMATION: Belinda Meehan is a 46 y.o. female Date of : 1960 Consulting Physician: LUKASZ CHARLES PHD Consultation Date: 05/29/2006 Referring Provider: Carlos Arreola Identifying Information: Belinda Meehan is a 46 y.o. female who lives in [facility] of [facility] her 2 sons. The patient [...] disability benefits. 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 Marital History: , not currently in [...] and decreasing depression and anx iety. Diagnosis: [place] I: 1. (296.32) Major depressive disorder, recurrent, moderate. 2. (309.24) Adjustment disorder with anxiety. 3. 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 [place] II: Deferred [place] III: abdominal pain, migraine headache, low back pain. [place] IV: low finances [place] V: GAF 50 Recommendations: 1. Psychological counseling to increase knowledge and use of cognitive and behavioral pain coping skills is recommended. The treatment should include relaxation training to improve c ontrol over physiologic responses to pain. Treatment should also focus on decreasing sympto ms of depression and increasing participation in social, recreational and leisure activities . Ms. 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 LUKASZ CHARLES PHD [facility] [address] [place] [address] And [facility], [address] [place] [address] documented in this [facility] Plan of Treatment + + +--------+ + + | Name | Type | Priori | Associated Diagnoses | Order Schedule | | | | ty | | | + + +--------+ + + | [facility] | Procedures | Routin | Major Depressive | Ordered: 05/29/2006 | | DIAGNOSTIC INTERVIEW | | e | Disorder, Recurrent | | | | | | Episode, Moderate | | | | | | ([facility]) Chronic | | | | | [...]
--- OUTSIDE RECORDS SUMMARY | ~2019-12-13 | XMS | Encounter Summary ---
Demographics + + + | Address | [address] | | | [place] [address] | + + + | Home Phone [...] Team Providers + +------+ + | Care Gravity Meter Observer Name | Role | Phone | [...] | | | | | | | [place], [place] | | | | | | | [address] | | | | | | | Phone: | | | | | | | [phone] | | | | | | | Fax: | | | | | | | [phone] | +--------+--------+ + + + + Encounter [...] | | | [facility] | [place], [place] | Metabolic syndrome | | | | [address] | [address] | X 250.80; Essential | | | | [address] | [phone] | hypertension 401.9; | | | | [facility] | | Fibromyalgia | | | | Physician's | | syndrome 729.1 | | | | Pavilion [place], | | | | | | [place] [address] | | | | | | [phone] | | | +--------+---------+ + + + [...] - 08/24/2007 1 :32 PM PDT Subjective Belinda Meehan is a 47 y.o. female [...] by oral route once daily at bedti az as needed Oxycodone HCl (OXYCONTIN) 40 mg [...]
--- OUTSIDE RECORDS SUMMARY | ~2019-12-13 | XMS | Encounter Summary ---
Demographics + + + | Address | [address] | | | [place] [address] | + + + | Home Phone [...] Team Providers + +------+ + | Care Ferryboat Operator Helper Name | Role | Phone [...] | | | Metabolism | bypass | [address] | [address] | | | | | Hypovitamino | [address], | Ave | | | | | sis D B12 | [address] | [place], [place] | | | | | nutritional | [place], [place] | [address] | | | | | deficiency | [address] | Phone: | | | | | Other | Phone: | [phone] | | | | | protein-jose manuel | [phone] | Fax: | | | | | nick | Fax: | [phone] | | | | | malnutrition | [phone] | | | | | | Weight | | | | | | | gain | | | | | | | Procedures | | | | | | | CONSULT TO | | | | | | | ENDO | | | | | | | [address] | | | | | | | [address] | | | +--------+--------+ + + + [...] | | | [facility] | [place], [place] | Metabolic syndrome X | | | | [address] | [address] | 250.80; Essential | | | | [address] | [phone] | hypertension 401.9; | | | | Phys[facility] | | IGT (impaired | | | | Physician's | | glucose tolerance) | | | | Pavilion [place], | | | | | | [place] [address] | | | | | | [phone] | | | +--------+---------+ + + + [...] month in the pain center her at [facility], so she is hoping to find [...] Hives Mainly in the legs Clindamycin Codeine Jurultv-Hspsyjpyhz-Dnm-Caff Balance problems Fioricet W/Codeine (Zvqlkmyyla-Aqfjquqywb-Yns-Cod) Keflex (Cephalexin) Morphine IM ( only in [facility]) made gut pain worse 08/27/06: Trial of [...] U/L 41 ANION GAP 8 VITAMIN B12, [id number] pg/ml >2000 (H) HEMOGLOBIN A1C <=5.6 % [...] SERUM 15.0-85.0 pg/ml 222.9 (H) VITAMIN B12, [id number] pg/ml > 2000 HEMOGLOBIN A1C <=5.6 % [...]
--- OUTSIDE RECORDS SUMMARY | ~2019-12-13 | XMS | Encounter Summary ---
Demographics + + + | Address | [address] | | | [place] [address] | + + + | Home Phone [...] Team Providers + +------+ + | Care Administrative Office Manager Name | Role | Phone | + +------+ + | Petrona Thapa | PCP | | | MD | | | + +------+ + Reason for Visit + +--------+ + | Reason | Onset | Comments | | | Date | | + +--------+ + | Medication Problem | 06/04/ | | | | 2016 | | + +--------+ + Encounter Details +--------+ + + + + | Date | Type | Department | Care Team | Description | +--------+ + + + + | 06/04/ | Telephone | [facility] | Alanis, | Medication Problem | | 2016 | | [address] | MD Petrona | | | | | [place], | [address] [facility] | | | | | [place] [address] | [place] [address] | | | | | [phone] | [phone] | | | | | | | [...] Telephone Encounter - Maggie Montoya LPN - 06/09/2017 4:57 PM PSTPatient states she discon tinued the Cymbalta already and no vomiting noted since. States Zofran not needed at this ti me. elephone Encounter - Petrona Thapa MD - 06/05/2017 7:45 AM PSTIs she wanting Zofran or would sh e rather quit cymbalta altogether? elephone Encounter - Shalonda Mcdermott - 06/04/2017 11:03 AM PSTContac t/Caller: Hannah Contact Number: [phone] Provider/Nurse: Emmy Reason for Call: patient had to stop taking her Cymbalta-she was up all night throwing up f rom taking it, she stated she now remembers that this was the side effect she had last time with it. She also wanted Doctor to know she had to take to Zofran to get the vomiting to sto p so she could rest. Last Appointment: 06/01/2017 Next Appointment: 08/31/2017 documented in this encount er Plan of Treatment +--------+---------+ + + + | Date | Type | Specialty | Care Team | Description | +--------+---------+ + + + | 12/20/ | Office | Audiology | Elisabet Munson MS | | | 2019 | Visit | | [facility] [address] | | | | | [address] [place] | | | | | | [place] [address] | | | | | | [phone] | | | | | | | | +--------+---------+ + + + | 12/20/ | Office | Otolaryngology | Ulysses Genao MD | | 2019 | Visit | | [address] | | | | | | [address] [place] | | | | | | [place] [address] | | | | | | [phone] | | | | | | | | +--------+---------+ + + + | 02/15/ | Office | Internal Medicine | Alanis, | | | 2019 | Visit | | MD Petrona | | | | | | [address] [place] | | | | | | [place] [address] | | | | | | [phone] | | | | | | | | +--------+---------+ + + + documented as of this encounter Visit Diagnoses Not on filedocumented in this encounter"
--- OUTSIDE RECORDS SUMMARY | ~2019-12-13 | XMS | Encounter Summary ---
Demographics + + + | Address | [address] | | | [place] [address] | + + + | Home Phone [...] Providers + +------+ + | Care Theater Company Producer Name | Role | Phone | [...] | 11/11/ | Office | [facility] Comprehensive | Delfina Molina, | Spondylosis with | | 2006 | Visit | Pain Center at | ANP | Myelopathy, Lumbar | | | | [facility] | | Region; Left Knee | | | | [address] | | Pain; Right Hip | | | | Mailcode: CH15P | | Region Pain; Opioid | | | | [facility] | | Dependence, | | | | and Healing, | | Continuous ([facility]); | | | | Building | | Major Depressive | | | | Floor [place], [place] | | Disorder, Recurrent | | | | [address] | | Episode, Moderate | | | | [phone] | | ([facility]); Adjustment | | | | [...] is a 46 y.o. female [facility] Comprehensive Pain Center Return Visit Chief [...] weeks. 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 Fentanyl patch 25mcg/hr Q72hr 3. Dewy Rose 10/325 NTE 4 per day 4 Continue [...] weeks or sooner if needed. DELFINA MOLINA [facility] Comprehensive Pain Center Mail code CH [address]P [facility] [address] [facility] [address] Tasha Can - 11/11/2006 9:29 AM PDTCMA [...]
--- OUTSIDE RECORDS SUMMARY | ~2019-12-13 | XMS | Encounter Summary ---
Demographics + + + | Address | [address] | | | [place] [address] | + + + | Home Phone [...] [address] | | | | | | [place], [place] | | | | | | [address] | | | | | | [phone] | | | +--------+ + + + [...]
--- OUTSIDE RECORDS SUMMARY | ~2019-12-13 | XMS | Encounter Summary ---
Demographics + + + | Address | [address] | | | [place] [address] | + + + | Home Phone [...] Rd | | | | | | [place], [place] | | | | | | [address] | | | +--------+ + + + [...]
--- OUTSIDE RECORDS SUMMARY | ~2019-12-13 | XMS | Encounter Summary ---
Demographics + + + | Address | [address] | | | [place] [address] | + + + | Home Phone [...] Providers + +------+ + | Care Passenger Interline Clerk Name | Role | Phone | [...] + + | 03/25/ | Refill | [facility] | Alanis, | Medication Refill | | 2016 | | MEDICINE [address] | MD Petrona | | | | | [place], | [address] [facility] | | | | | [place] [address] | [place] [address] | | | | | [phone] | [phone] | | | | | | | [...] | [facility] [address] | | | | | | ST [place] | | | | | | [place] [address] | | | | | | [phone] | | | | | | | | +--------+---------+ + + + | 12/20/ | Office | Otolaryngology | Ulysses Genao MD | | | 2019 | Visit | | [address] | | | | | | [address] [place] | | | | | | [place] [address] | | | | | | [phone] | | | | | | | | +--------+---------+ + + + | 02/15/ | Office | Internal Medicine | Alanis, | | | 2019 | Visit | | MD Petrona | | | | | | [address] [place] | | | | | | [place] [address] | | | | | | [phone] | | | | | | | | +--------+---------+ + + + documented as of this encounter Visit Diagnoses Not on filedocumented in this encounter"
--- OUTSIDE RECORDS SUMMARY | ~2019-12-13 | XMS | Encounter Summary ---
Demographics + + + | Address | [address] | | | [place] [address] | + + + | Home Phone [...] Providers + +------+ + | Care Label Cutter Name | Role | Phone | [...] Pavilion | | | | | | [place], [place] | | | | | | [address] | | | | | | [phone] | | | +--------+ + + + [...]
--- OUTSIDE RECORDS SUMMARY | ~2019-12-13 | XMS | Encounter Summary ---
Demographics + + + | Address | [address] | | | [place] [address] | + + + | Home Phone [...] Team Providers + +------+ + | Care Training Systems Officer Name | Role | Phone | [...] Rehabilitatio | syndrome of | i, | [place] | | | | n | right | Petrona | [place], | | | | | shoulder | , [address] | [place] [address] | | | | | Procedures | [address] | Phone: | | | | | PT | [place], | [phone] | | | | | | [place] | Fax: | | | | | | [address] | [phone] | | | | | | Phone: | | | | | | | [phone] | | | | | | | Fax: | | | | | | | [phone] | | +--------+ + + + + [...] + + | 09/22/ | Office | [facility] | Alanis, | Impingement syndrome | | 2018 | Visit | MEDICINE [address] | MD Petrona | of right shoulder | | | | [address] [place], | [address] [place] | (Primary Dx); Chest | | | | [place] [address] | [place] [address] | pain, unspecified | | | | [phone] | [phone] | type | | | | | [...] myelopathy, lumbar region Stroke ([facility]) Syncope Tremor Type II or unspecified type [...] (See Comments) Confused and questionable for seizures Ygfcawrgws-Tbsd-Kdgqergk Cephalexin Hives Duloxetine Migraines and nausea Ketorolac Hives Morphine Swelling Ropinirole Hcl Hives Tramadol Hcl Nausea Only Nfsrescqnq-Ladv-Xqxzadmt Hives and Rash Ciprofloxacin Hives and Rash [...] Right 2 + Vw; Future - * [facility] Physical Therapy - AMB Referral; Future 2. Chest pain, unspecified type - nitroglycerin (NITROSTAT) 0.4 mg SL tablet; Place 1 tablet under the tongue every 5 minut es as needed for Chest pain. Dispense: 25 tablet; Refill: 3 FOLLOW-UP Return in about 6 months (around 03/24/2018). Note: Parts of this documentwere created using Redux[employer] speech recognition software. As a r esult, [...] | [facility] [address] | | | | | [address] [place] | | | | | | [place] [address] | | | | | | [phone] | | | | | | | | +--------+---------+ + + + | 12/20/ | Office | Otolaryngology | Ulysses Genao MD | | | 2019 | Visit | | [address] | | | | | | [address] [place] | | | | | | [place] [address] | | | | | | [phone] | | | | | | | | +--------+---------+ + + + | 02/15/ | Office | Internal Medicine | Alanis, | | | 2019 | Visit | | MD Petrona | | | | | | [address] [place] | | | | | | [place] [address] | | | | | | [phone] | | | | | | | [...]
--- OUTSIDE RECORDS SUMMARY | ~2019-12-13 | XMS | Encounter Summary ---
Demographics + + + | Address | [address] | | | [place] [address] | + + + | Home Phone [...] Team Providers + +------+ + | Care Cad Cam Programmer Name | Role | Phone | [...] Status Post | | 2007 | | [place] [address] | [address] [facility] | Bariatric Surgery | | | | Ave Mailcode: CH4S | [address] | (Primary Dx) | | | | [facility] | [place], [place] | | | | | and Healing, | [address] | | | | | Building 1, 6th | [phone] | | | | | Floor [place], [place] | | | | | | [address] | | | | | | [phone] | | | +--------+ + + + [...] | | | | | ng/mLPerformed by [facility] | | | | | | [facility],[address] | | | | | | Andrew, [facility] [place] [address] | | | | | | [phone] | | | | | | Sincere [...] [facility] | [address] | [place], [place] | | | UNIV PTH - INTFC | | [address] | | + + + + + [...] | + + + + + | [facility] | [address] | [place] [address] | | | LABORATORY | | | [...] RLB ([address] [facility]) | | | [facility] [place] [address] | | | [place] [address] | | + + + + + + + + | Performing | Address | City/State/Zipcode | Phone Number | | Organization | | | | + + + + + | [facility] | [address] | [place] [address] | | | LABORATORY | | | [...] RL ([address] [facility]) | | | [facility] [place] [address] [facility] [facility] [address] | | | [place] [address] | | + + + + + + + + | Performing | Address | City/State/Zipcode | Phone Number | | Organization | | | | + + + + + | [facility] | [address] | [place] [address] | | | LABORATORY | | | [...] Performed At | + + + | [address] Estimated GFR > 60 mL/min/1.73 sq m if non- | [facility] | | [address] Estimated GFR > 60 mL/min/1.73 sq m [...] + + | [facility] DEPARTMENT OF | [address] | [place] [address] | | | PATHOLOGY | [address] | | | + + + + + | [place] DEPARTMENT | [address] | [place] [address] | | | PATHOLOGY | [address] [...] [facility] | [address] | [place] [address] | | | PATHOLOGY | [address] | | | + + + + + | [facility] | [address] | [place] [address] | | | PATHOLOGY | [address] | | | + + + + + documented in this encounter Visit Diagnoses + + | Diagnosis | + + | Status post bariatric surgery - Primary Bariatric surgery status | + + documented in this encounter"
--- OUTSIDE RECORDS SUMMARY | ~2019-12-13 | XMS | Encounter Summary ---
Demographics + + + | Address | [address] | | | [place] [address] | + + + | Home Phone [...] Team Providers + +------+ + | Care Checkout Operator Name | Role | Phone | [...] | | | | | (degenerativ | [place] | | | | | e joint | [address] | [address] | | | | | disease) of | | Phone: | | | | | knee Knee | | [phone] | | | | | pain Major | | Fax: | | | | | depressive | | [phone] | | | | | disorder, | [...] + + + + | 04/20/ | Caustic Cresylate Shift Superintendent | [facility] Comprehensive | Miranda Lambert, | LBP (Low Back Pain); | | 2006 | | Pain Center at | ANP | DJD (Degenerative | | | | [facility] | | Joint Disease) of | | | | [address] | | Knee; Bilateral Knee | | | | Mailcode: CH15P | | Pain; Major | | | | [facility] | | Depressive Disorder, | | | | and Healing, | | Recurrent Episode, | | | | Building | | Moderate ([facility]); | | | | Floor [place], [place] | | Adjustment Disorder | | | | [address] | | with Anxiety; | | | | [phone] | | Spondylosis with | | | [...]
--- OUTSIDE RECORDS SUMMARY | ~2019-12-13 | XMS | Encounter Summary ---
Demographics + + + | Address | [address] | | | [place] [address] | + + + | Home Phone [...] Providers + +------+ + | Care Gallery Host Name | Role | Phone | [...] as of this encounter Progress Notes Interface, Senior Statistical Programmer In - 01/12/2005 10:09 AM PDT [id number] [facility] Date: 12/19/2004 Clinic: General [...] as vitamin B12. Melisa Thorne / SHARIF [id number] / [id number] / [id number] / [id number] cc: Pedrito Gutierrez M.D. [address] [address] FAX: [phone] Chris Padgett M.D. General Surgery, [facility] Electronically signed by Kenisha Melton 12-25-2004 04:28:39 PM documented i n this encounter Plan of Treatment Not on filedocumented as of this encounter Visit Diagnoses Not on filedocumented in this encounter"
--- OUTSIDE RECORDS SUMMARY | ~2019-12-13 | XMS | Encounter Summary ---
Demographics + + + | Address | [address] | | | [place] [address] | + + + | Home Phone [...] Team Providers + +------+ + | Care Franchise Development Manager Name | Role | Phone [...] | Transcriptions | + + | Interface, Airplane And Engine Inspector In - 06/05/2005 5:20 AM PST | | [id number] | | [id number] [facility] | | | | Date: 12/06/2004 | | | | Attending Surgeon: Chris Padgett M.D. | | | | Refrigeration Mechanic Helper(s): | | | | Preoperative Diagnosis(es): | [...] | | BW / HS | | [id number] / [id number] / [id number] / | | | | | | | | | | | | Electronically signed by Chris Padgett 12-31-2004 03:02:45 PM | + + documented in this encounter Visit Diagnoses Not on filedocumented in this encounter"
--- OUTSIDE RECORDS SUMMARY | ~2019-12-13 | XMS | Encounter Summary ---
Demographics + + + | Address | [address] | | | [place] [address] | + + + | Home Phone [...] Team Providers + +------+ + | Care Seismology Technical Officer Name | Role | Phone [...] | | Osteoporosis | i, | [address] | | | | | , | [place] | [place], | | | | | unspecified | , [address] | [place] [address] | | | | | osteoporosis | [address] | Phone: | | | | | type, | [place], | [phone] | | | | | unspecified | [place] | Fax: | | | | | pathological | [address] | [phone] | | | | | fracture | Phone: | | | | | | presence | [phone] | | | | | | Procedures | Fax: | | | | | | [place] | [phone] | | | | | | ZOLEDRONIC | | | | | | | ACID 1MG | | | +--------+ + + + + + Encounter Details +--------+ + + + + | Date | Type | Department | Care Team | Description | +--------+ + + + + | 08/18/ | Hospital | [facility] | [place], | Osteopenia, | | 2018 | Encounter | MED CTR OP INFUSION | MD [place] | unspecified location | | | | [address] | [address] [facility] | | | | | [place] | [place] [address] | | | | | [address] | [phone] | | | | | [phone] | | | +--------+ + + + [...] PharmD - 08/18/2017 11:[address] Booht office and got verbal report of what pts most r ecent Scr was from her lab draw at [facility]. Marlyn PharmD reports it was 0.81 [...] | | | | | | [address] | | | | | | [place] [address] | | | | | | [phone] | | | | | | | | +--------+---------+ + + + | 12/20/ | Office | Otolaryngology | Ulysses Genao MD | | | 2019 | Visit | | [address] | | | | | | [address] | | | | | | [place] [address] | | | | | | [phone] | | | | | | | | +--------+---------+ + + + | 02/15/ | Office | Internal Medicine | Alanis, | | | 2019 | Visit | | MD [place] | | | | | | [address] | | | | | | [place] [address] | | | | | | [phone] | | | | | | | [...]
--- OUTSIDE RECORDS SUMMARY | ~2019-12-13 | XMS | Encounter Summary ---
Demographics + + + | Address | [address] | | | [place] [address] | + + + | Home Phone [...] Providers + +------+ + | Care Paper Stripper Name | Role | Phone | [...] Rd | | | | | | [place], [place] | | | | | | [address] | | | +--------+ + + + [...]
--- OUTSIDE RECORDS SUMMARY | ~2019-12-13 | XMS | Encounter Summary ---
Demographics + + + | Address | [address] | | | [place] [address] | + + + | Home Phone [...] Providers + +------+ + | Care Senior Qa Tester Name | Role | Phone [...] Pavilion | | | | | | [place], [place] | | | | | | [address] | | | | | | [phone] | | | +--------+---------+ + + + [...] take place on the hill at the [facility]: Surgeries scheduled in the [facility]): registration is located on the 4th floor of [facility]). Surgeries scheduled in the [facility]: registration is located on the 9th floor. Surgeries scheduled in [facility]: registration is located on the 6th floor. Surgeries scheduled in the [facility]: registration is located i n the [facility] on the first floor. For surgeries scheduled to take place at the [facility]: registration is l [...] If you use specialized medical equipment at [facility], please check with your provider before [...]
--- OUTSIDE RECORDS SUMMARY | ~2019-12-13 | XMS | Encounter Summary ---
Demographics + + + | Address | [address] | | | [place] [address] | + + + | Home Phone [...] Providers + +------+ + | Care Long Haul Truck Driver Name | Role | Phone [...] + + | 06/22/ | Office | [facility] Comprehensive | Delfina Molina, | Herniated Lumbar | | 2006 | Visit | Pain Center at | ANP | Intervertebral Disc | | | | [facility] | | L4-5; Spondylosis | | | [...] | Dependence, | | | | Floor [place], [place] | | Continuous ([facility]); | | | | [address] | | Major Depressive | | | | [phone] | | Disorder, Recurrent | | | | | | Episode, Moderate | | | | | | ([facility]); Adjustment | | | | | | [...] Belinda Meehan is a 46 y.o. female [facility] Comprehensive Pain Center Return Visit Chief [...] the past week of Fentanyl patch and Urich. Trileptal he lps with right leg pain and sleep. "been sleeping great". Expectations for this visit include : discussing the sticking problems with the fentanyl pa tc and her insurance not being willing prescribe Urich. There have been no other change in [...] an d her insurance stopped coverage of Urich. I believe doing pool therapy three times [...] might be d iverting or using her Urich? Until I know more I will not be prescribing a breakthrough sian n medication but am willing to prescribe early for her fentanyl. I have asked Belinda to pick and shovel man and be responsible for her own medication pick and shovel man. I discussed with Tasha Nolasco CMA the issue of Insurance PA for Urich this was in progress as of the time the patient was here. At the time I completed this note we had word that Ins urance would not approve coverage. I will discuss this with Belinda once I know her story o n where the dispensed #70 Urich is. [ Tasha reported calling [employer] who reported: Belinda's s on picking up [...] with each exchange. 3. Patient instructed to pick and shovel man and be responsible for her own medications. 4. Follow up in two weeks to review pain management. Once she is again stable on the fen tanyl patch I will transfer her prescribing to Dr. Gutierrez. She has completed the Multidisci plinary patient Care program here at the [facility]. DELFINA MOLINA [facility] Mail code CH 4P [facility] and [address] [address] Tasha Can - 12/04/2006 7:43 [...] | + + | Opioid dependence, continuous ([facility]) Opioid type dependence, continuous | + + [...]
--- OUTSIDE RECORDS SUMMARY | ~2019-12-13 | XMS | Encounter Summary ---
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 Her IGF-1 was low [...] 3 months. Caitlin Rivera M.S., F.N.P. / [id number] / [id number] / [id number] / cc: Pedrito Gutierrez M.D. [address] [facility] [place] [address] documented i n this encounter Plan of Treatment Not on filedocumented as of this encounter Visit Diagnoses Not on filedocumented in this encounter"
--- OUTSIDE RECORDS SUMMARY | ~2019-12-13 | XMS | Encounter Summary ---
Demographics + + + | Address | [address] | | | [place] [address] | + + + | Home Phone [...] Providers + +------+ + | Care Supervisor Spinning Name | Role | Phone | + [...] 09/23/ | Office | Pain Center at [facility] | Lukasz Charles, | Major Depressive | | 2006 | Visit | [address] | PhD [address] | Disorder, Recurrent | | | | Mailcode: CH15 | [place], [place] | Episode, Moderate | | | | [facility] | [address] | (HCC); Chronic | | | | and Healing, | [phone] | Abdominal Pain; | | | | Building | | Herniated Lumbar | | | | Floor [place], [place] | | Intervertebral Disc | | | | [address] | | L4-5; DJD | | | | [phone] | | (Degenerative Joint | | | [...] progress but still neglects self-care occasionally. Diagnosis: Pierce I: 1. (296.32) Major depressive disorder, recurrent, moderate. 2. (309.24) Adjustment disorder with anxiety. 3. 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 Pierce II: Deferred Pierce III: abdominal pain, migraine headache, low back pain. Pierce IV: low finances Pierce V: GAF 50 Plan: Return in 2 weeks. Check preparation for move and for niece's visit, Curves gym, pacing, r elaxation, activity, distraction. Check managing Pain... book. Discuss need for further vi sits. Total time spent with patient was approximately 45 minutes. LUKASZ CHARLES PHD [facility] [address] [facility], [address] [place] [id number] documented in this encount er Plan of [...]
--- OUTSIDE RECORDS SUMMARY | ~2019-12-13 | XMS | Encounter Summary ---
Demographics + + + | Address | [address] | | | [place] [address] | + + + | Home Phone [...] + +------+ + | Care Sheet Metal Apprentice Name | Role | Phone | [...] | Procedures | [address] | [place] | | | | | CONSULT TO | [address] | [address] | | | | | GI PROCEDURE | Rd | floor | | | | | UNIT: EGD | [place], [place] | [place], [place] | | | | | | [address] | [address] | | | | | | Phone: | Phone: | | | | | | [phone] | [phone] | | | | | | | Fax: | | | | | | | [phone] | +--------+--------+ + + + + Consultation [...] ogy | Iron | [place], | [address] | | | | | deficiency | MD Carlos | [address] | | | | | Procedures | [address] | [place] | | | | | CONSULT TO | [address] | [address] | | | | | GI PROCEDURE | Rd | floor | | | | | UNIT: | [place] | [place] | | | | | COLONOSCOPY | [address] | [address] | | | | | | Phone: | Phone: | | | | | | [phone] | [phone] | | | | | | | Fax: | | | | | | | [phone] | +--------+--------+ + + + + Reason [...] + + | 03/10/ | Office | [facility] Division of | Carlos Arreola, | Chronic Abdominal | | 2005 | Visit | Gastroenterology/Hep | MD [address] | Pain; Iron | | | | atology [address] | [address] | Deficiency | | | | [address] | [place] [address] | | | | | Mailcode: PV310 | [phone] | | | | | [facility] | | | | | | [address] | | | | | | [place], [place] | | | | | | [address] | | | | | | [phone] | | | +--------+---------+ + + + [...] so by calling and asking for my leasing assistant Cierra Alexis. I always do my [...] if there are any abnormal values. Oth missaelwise, you can be assured that I have [...] other questions or issues. Carlos Arreola MD. [facility] Division Of Gastroenterology/Hepatology [address] [place] [address] [place] [address] documented in this encounter Progress Anup Plascencia - 03/10/2006 2:52 PM PDTI saw and examined the patient and discussed the ca se with Dr. Arreola. 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 Lost 200lbs psot bypass surgery, has [...] and mild transaminase elevation without cholestasis. Sh jennifer had her beta colby dose halved in [...] GENERAL [facility] | [address] | [place] [address] | | | PATHOLOGY | [address] | | | + + + + + | [facility] | [address] | [place] [address] | | | PATHOLOGY | [address] [...] + | [facility] | [address] [facility] | [place] [address] | | | PATHOLOGY | [address] | | | + + + + + | [facility] | [address] [facility] [address] | [place] [address] | | | PATHOLOGY | [address] [...] | [facility] DEPARTMENT OF | [address] | [place] [address] | | | PATHOLOGY | [address] | | | + + + + + | [facility] | [facility] [address] | [place] [address] | | | PATHOLOGY | [address] [...] DEPARTMENT OF | [address] | [place] [address] | | | PATHOLOGY | [address] | | | + + + + + | [facility] | [address] | [place] [address] | | | PATHOLOGY | [address] [...] | pg/mL | | | | | [facility]. | | | | + + + + + + + + | Specimen | + + | | + + + + + + + | Performing | Address | City/State/Zipcode | Phone Number | | Organization | | | | + + + + + | [facility] | [address] | [place] [address] | | | LABORATORY | | | [...] | | | | | performed at [place] | | | | | | [facility] | | | | | | Laboratory | | | | + + + + + + + + | Specimen | + + | | + + + + + + + | Performing | Address | City/State/Zipcode | Phone Number | | Organization | | | | + + + + + | [facility] | [address] | [place] [address] | | | LABORATORY | | | | + + + + + documented in this encounter Visit Diagnoses + + | Diagnosis | + + | Chronic abdominal pain Abdominal pain, unspecified site | + + | Iron deficiency Other disorders of iron metabolism | + + documented in this encounter"
--- OUTSIDE RECORDS SUMMARY | ~2019-12-13 | XMS | Encounter Summary ---
Demographics + + + | Address | [address] | | | [place] [address] | + + + | Home Phone [...] Providers + +------+ + | Care Hospice Nurse Practitioner Name | Role | Phone [...] | [facility] | [address] | Dx); S/P Gastric | | | | [facility] | [place], [place] | Bypass Surgery November | | | | [address] | [address] | 2003; | | | | [address] | [phone] | Hypothyroidism; | | | | [facility] | | Essential | | | | Physician's | | hypertension [address]; | | | | [address] [place], | | Iron Deficiency | | | | [place] [address] | | | | | | [phone] | | | +--------+---------+ + + + [...] (Ciprofloxacin) Tramadol Morphine IM ( only in [facility]) made gut pain worse 08/27/06: Trial of [...] 300 mg) by oral route once daily jqjoffgujz-soidfkbckwldz-qzbqagjl (FIORICET) 50-325-40 mg Oral Tablet take 2 [...]
--- OUTSIDE RECORDS SUMMARY | ~2019-12-13 | XMS | Encounter Summary ---
Demographics + + + | Address | [address] | | | [place] [address] | + + + | Home Phone [...] Team Providers + +------+ + | Care Inspection Manager Name | Role | Phone | [...] | Transcriptions | + + | Interface, Cupola Charger In - 06/05/2005 5:20 AM PST Date: | | 11/22/2003Attending Surgeon: Chris Padgett M.D.Asphalt Mixer(s): | | Ramon Valentine M.D.Preoperative Diagnosis:Morbid obesity.Postoperative [...] our proximal transected portion down and did iderb-sd-khbx stapled jejunojejunostomy | | using a single [...] to this antecolic and antegastric andperformed a itvc-tl-lvng gastrojejunostomy | | after placing a posteriorinterrupted [...] Valentine | | Syed Padgett M.D.MOOKIE / [id number] / [id number] / [id number] / [id number]: 11/22/2003T: | | 11/22/2003 | |cm to [...] transected portion down and did a | |sqka-uz-bmed stapled jejunojejunostomy using a single firing blue [...] antecolic and antegastric and | |performed a llhh-nu-hapb gastrojejunostomy after placing a posterior | |interrupted [...] | | | |MOOKIE / SHARIF | |[id number] / [id number] / [id number] / [id number] | | | | | + + documented in this encounter Visit Diagnoses Not on filedocumented in this encounter"
--- OUTSIDE RECORDS SUMMARY | ~2019-12-13 | XMS | Encounter Summary ---
Demographics + + + | Address | [address] | | | [place] [address] | + + + | Home Phone [...] Providers + +------+ + | Care Plant Physiology Teacher Name | Role | Phone | [...] Rom results of | | | | [facility] | | several radiology | | | | [address] | | studies) | | | | Mailcode: CH15P | | | | | | [facility] | | | | | | and Healing, | | | | | | Building | | | | | | Floor [place], [place] | | | | | | [address] | | | | | | [phone] | | | +--------+ + + + [...] | + +--------+ + + + | CO MRI LOWER EXTREM | Routin | 08/22/2005 [...] | + +--------+ + + + | CO MRI LOWER EXTREM | Routin | 03/05/2005 [...] + | NAME: BELINDA MEEHAN MR #: [id number] | [facility] | | DATE OF EXAM: [id number] [...] Armaan Rivera | | | H : [id number] : 1442 Approved By: Radiologist: | | + + + + + + + + | Performing | Address | City/State/Zipcode | Phone Number | | Organization | | | | + + + + + | [facility] | [address] | [place], [place] | | | [place] POINT OF CARE | [address] | [address] | | | TESTS | | | | + + + + + | [facility] | [address] | [place], [place] | | | TESTS | [address] | [address] | | + + + + + [...] [facility] | [address] | [place], [place] | | | [place] POINT OF CARE | [facility] | [address] | | | TESTS | | | | + + + + + | [facility] | [address] | [place], [place] | | | TESTS | [facility] | [address] | | + + + + + [...] By: Armaan Mata : | | | [id number] : 1137 Approved By: | | + + + + + + + + | Performing | Address | City/State/Zipcode | Phone Number | | Organization | | | | + + + + + | [facility] | [address] | [place], [place] | | | [place] POINT OF CARE | [address] | [address] | | | TESTS | | | | + + + + + | [facility] | [address] [facility] [address] | [place], [place] | | | TESTS | [address] | [address] | | + + + + + MRI SPINE CERVICAL WO CONTRAST (10/01/2005) + + + | Impressions | Performed At | + + + | SPINE LUMBAR 2 VIEWS AT 1421 HOURS LUMBAR SPINE, 10/01/05 | [facility] | | HISTORY: Back pain. FINDINGS: AP and lateral views of the lumbar | CARE TESTS | | spine show five nsq-zlp-pxjabyp lumbar vertebrae in normal alignment | | [...] | SPONDYLOSIS. Transcribed By: Armaan Mata : [id number] : | | | 1402 Approved By: | | + + + + + + + + | Performing | Address | City/[facility] | Phone Number | | Organization | | | | + + + + + | [facility] | [address] | [place], [place] | | | BOON POINT OF CARE | [address] | [address] | | | TESTS | | | | + + + + + | [facility] | [address] | [place], [place] | | | TESTS | [address] | [address] | | + + + + + [...] | | Transcribed By: Adriana Pacheco : [id number] : 1215 Approved By: | | | | | + + + + + + + + | Performing | Address | City/State/Zipcode | Phone Number | | Organization | | | | + + + + + | [facility] | [address] | [place], [place] | | | [facility]EN [place] OF [facility] | [address] | [address] | | | TESTS | | | | + + + + + | [facility] | [address] | [place], [place] | | | TESTS | [address] | [address] | | + + + + + CO MRI LOWER EXTREM JT, W/O CONTRAST (08/22/2005) + + + | Impressions | Performed At | + + + | LOWER EXTREMITY JOINT RT W/O AT 1619 HOURS RIGHT KNEE MRI, | [facility] | | 08/22/05 HISTORY: Chronic posterior [...] + + | Performing | Address | City/[facility] | Phone Number | | Organization | | | | + + + + + | [facility] | [address] | [place], [place] | | | BOON POINT OF CARE | [address] | [address] | | | TESTS | | | | + + + + + | [facility] | [address] | [place], [place] | | | TESTS | [address] | [address] | | + + + + + [...] [facility] | [address] | [place], [place] | | | [place] POINT OF CARE | [address] | [address] | | | TESTS | | | | + + + + + | [facility] | [address] | [place], [place] | | | TESTS | [address] | [address] | | + + + + + CO MRI LOWER EXTREM JT, W/O CONTRAST (03/05/2005) [...] | | | By: Armaan Mata : [id number] : 1416 Approved By: | | + + + + + + + + | Performing | Address | City/State/Zipcode | Phone Number | | Organization | | | | + + + + + | [facility] | [address] | [place], [place] | | | [facility] [place] OF [facility] | [address] | [address] | | | TESTS | | | [...] Armaan | | | Nicole Saenz : [id number] : 1555 Approved By: | | + + + + + + + + | Performing | Address | City/State/Zipcode | Phone Number | | Organization | | | | + + + + + | [facility] | [address] | [place], [place] | | | [facility] [place] OF [facility] | [address] | [address] | | | TESTS | | | [...] Adriana | | | Aminata Pacheco : [id number] : 1505 Approved By: | | + + + + + + + + | Performing | Address | City/State/Zipcode | Phone Number | | Organization | | | | + + + + + | [facility] | [address] [facility] [address] | [place], [place] | | | [place] POINT OF [facility] | [address] | [address] | | | TESTS | | | | + + + + + documented in this encounter Visit Diagnoses Not on filedocumented in this encounter"
--- OUTSIDE RECORDS SUMMARY | ~2019-12-13 | XMS | Encounter Summary ---
Demographics + + + | Address | [address] | | | [place] [address] | + + + | Home Phone [...] Providers + +------+ + | Care Lead Case Manager Name | Role | Phone [...] | | | [facility] | [place], [place] | | | | | [address] | [address] | | | | | [address] | [phone] | | | | | Physician's | | | | | | Pavilion, 1st floor | | | | | | [place], [place] | | | | | | [address] | | | | | | [phone] | | | +--------+ + + + [...]
--- OUTSIDE RECORDS SUMMARY | ~2019-12-13 | XMS | Encounter Summary ---
Demographics + + + | Address | [address] | | | [place] [address] | + + + | Home Phone [...] Providers + +------+ + | Care Security Controls Assessor Name | Role | Phone | [...] | | | | CONSULT TO | [place], [place] | [address] | | | | | NEUROLOGY | [address] | for Health | | | | | | | and Healing, | | | | | | | Building 1, | | | | | | | 8th Floor | | | | | | | [place], [place] | | | | | | | [address] | | | | | | | Phone: | | | | | | | [phone] | | | | | | | Fax: | | | | | | | [phone] | +--------+--------+ + + + + Reason for Visit +--------+ + | Reason | Comments | +--------+ + | Pain | back, legs, headache | +--------+ + Encounter Details +--------+---------+ + + + | Date | Type | Department | Care Team | Description | +--------+---------+ + + + | 08/12/ | Office | [facility] Comprehensive | Delfina Molina, | Migraine Headache | | 2006 | Visit | Pain Center at | ANP | (Primary Dx); | | | | [facility] | | 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 female [facility] Return Visit Chief Complaint: [...] in two weeks or PRN DELFINA MOLINA [facility] Mail code CH 4P [facility] and [address] [place] [address] Alisha Marquez - 7 [...]
--- OUTSIDE RECORDS SUMMARY | ~2019-12-13 | XMS | Encounter Summary ---
Demographics + + + | Address | [address] | | | [place] [address] | + + + | Home Phone [...] Providers + +------+ + | Care Automatic Die Cutting Machine Operator Name | Role | Phone [...] Services | Therapy | Acute pain | [facility] | | | Required | | of right | Eliud, | PHYSICAL | | | | | shoulder | [address] THERAPY [address] | | | | | Tear of | [address] | [place] | | | | | right | [place], | [place], [place] | | | | | supraspinatu | [place] | [address] | | | | | s tendon, | [address] | Phone: | | | | | initial | Phone: | [phone] | | | | | encounter | [phone] | Fax: | | | | | | Fax: | [phone] | | | | | | [phone] | | +--------+ + + + + [...] | | | | | shoulder | [address] | [address] [place] | | | | | Tear of [address] | [place] | | | | | right | [address] | [address] Phone: | | | | | supraspinatu | [place], | [phone] | | | | | s tendon, | [place] | Fax: | | | | | initial | [address] | [phone] | | | | | encounter | Phone: | | | | | | | [phone] | | | | | | | Fax: | | | | | | | [phone] | | +--------+ + + + + + Encounter Details +--------+---------+ + + + | Date | Type | Department | Care Team | Description | +--------+---------+ + + + | 02/23/ | Office | [facility] | Lc Vail | Acute pain of right | | 2018 | Visit | ORTHOPEDIC SURGERY | MD [address] | shoulder; Tear of | | | | [address] | [address] | right supraspinatus | | | | [place] | [place] [address] | tendon, initial | | | | [address] | [phone] | encounter | | | | [phone] | | | +--------+---------+ + + + [...] the shoulder. Try to hold the stretch [id number]. 3. Work up to tdrqv8opxw of this stretch,3times a day. Work up [...] ask your healthcare provider. Date Last Reviewed: 07/16/201719997147-1359 [facility]. [address] [place], [place] [address]. All righ ts reserved. This information is not intended as a substitute for professional medical care. Always follow your healthcare professional's instructions. documented in this encounter Progress Notes Lc Vail MD - 02/23/2018 1:30 PM PDTFormatting of this note might be different fro m the original. [facility] HISTORY AND PHYSICAL [...] Procedure: COLONOSCOPY; Surgeon: Luther Brito MD; Location: [facility] MEDICAL PROCEDURE UNIT DILATION AND CURETTAGE OF UTERUS ELBOW SURGERY FINGER TRIGGER RELEASE 2002 FINGER TRIGGER RELEASE 2010 GASTRIC BYPASS SURGERY 2004 HYSTERECTOMY 05/14/1980 JOINT REPLACEMENT Bilateral 2007,2008 KNEE ARTHROSCOPY 2005 LAPAROSCOPY 01/27/2015 LAPAROTOMY 2008 ROTATOR CUFF REPAIR 2005 SPINE SURGERY TONSILLECTOMY 1964 UPPER GASTROINTESTINAL ENDOSCOPY N/A 12/18/2017 Procedure: EGD; Surgeon: Luther Brito MD; Location: [facility] MEDICAL PROCEDURE UNIT Allergies: Allergies Allergen Reactions Codeine Sulfate Nausea Only Levofloxacin Hives, Itching and Rash Amitriptyline Hcl Other (See Comments) Confused and questionable for seizures Twriuqjzin-Wxvl-Etmhjqyk Hives and Rash Cephalexin Hives Ciprofloxacin Hives [...] 1. Acute pain of right shoulder * [facility] Physical Therapy - AMB Referral triamcinolone acetonide (KENALOG-40) 40 mg/mL injection 40 mg 2. Tear of right supraspinatus tendon, initial encounter * [facility] Physical Therapy - AMB Refe rral triamcinolone [...] made to ensure accuracy; however, inadvertent computerized benefits specialist recruiter errors may be pre sent. I appreciate the opportunity to help with the management of this patient. Lc Vail MD [facility] umented in this encounter Plan of Treatment +--------+---------+ + + + | Date | Type | Specialty | Care Team | Description | +--------+---------+ + + + | 12/20/ | Office | Audiology | Elisabet Munson MS | | | 2019 | Visit | | [facility] [address] | | | | | | [address] [place] | | | | | | [place] [address] | | | | | | [phone] | | | | | | | | +--------+---------+ + + + | 12/20/ | Office | Otolaryngology | Ulysses Genao MD | | | 2019 | Visit | | [address] | | | | | | [address] [place] | | | | | | [place] [address] | | | | | | [phone] | | | | | | | | +--------+---------+ + + + | 02/15/ | Office | Internal Medicine | Alanis, | | | 2019 | Visit | | MD [place] | | | | | | [address] [place] | | | | | | [place] [address] | | | | | | [phone] | | | | | | | [...]
--- OUTSIDE RECORDS SUMMARY | ~2019-12-13 | XMS | Encounter Summary ---
Demographics + + + | Address | [address] | | | [place] [address] | + + + | Home Phone [...] Team Providers + +------+ + | Care Fish Header Name | Role | Phone | + [...] + + | 05/29/ | Office | [facility] Comprehensive | Delfina Molina, | Chronic Abdominal | | 2005 | Visit | Pain Center at | ANP | Pain; Cervical Pain; | | | | [facility] | | Joint pain 719.40; | | | | [address] | | Depression | | | | Mailcode: CH15P | | | | | | [facility] | | | | | | and Healing, | | | | | | Building | | | | | | Floor [place], [place] | | | | | | [address] | | | | | | [phone] | | | +--------+---------+ + + + [...] a Physical Therapy evaluation here at the [facility] in [place]. 3. Patient will be referred for a Psychology evaluation here at the [facility] Pain [facility]. 4. Following the completion of these [...] Belinda Meehan is a 46 y.o. female [id number] Chief Complaint: Patient presents with: Pain - [...] as PAIN MEDICINES: Opioids: Hydrocodone (Vicodin, Lortab, Barton): Why stopped?: don't remember. Came off due [...] HX SALPINGO-OOPHORECTOMY COLONOSCOPY Comment: 03/[address] D&C AFTER DELIVERY CT INJECT TRIGGER POINT, 1 [place] 2 Family [...] a Physical Therapy evaluation here at the [facility]. 3. Patient will be referred for a Psychology evaluation here at the [facility] Pain [facility] er. 4. Following the completion of [...] you for referring Bel[facility] [place] for a chronic pain management evaluation. I trust that you will find the recomm endations satisfactory and that you will be able to implement these in the care of your mehreen ent. Should you have any concerns or questions, please contact me, I would be happy to add ress those with you. DELFINA MOLINA [facility] Pain [place] Mail code CH 4P [place] [facility] Healing [address] [place] [address] metimothy Tasha - 05/29/2006 1:51 PM [...] drinking? no -Do you ever drink an eye-utility porter in the morning to relieve the shakes? [...] stressful life experiences recently? 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 What do you expect from our pain program? Help in coping with the pain 24. What types of treatment do you expect from your visits to the [facility] Pain Center ? Stress Management [...]
--- OUTSIDE RECORDS SUMMARY | ~2019-12-13 | XMS | Encounter Summary ---
Demographics + + + | Address | [address] | | | [place] [address] | + + + | Home Phone [...] Team Providers + +------+ + | Care Ballistics Expert Name | Role | Phone | + +------+ + | Sulaiman Carrera MD | PCP | | + +------+ + Encounter Details +--------+ + + + + | Date | Type | Department | Care Team | Description | +--------+ + + + + | 10/23/ | Ancillary | Registration [address] | Chris Padgett, | | | 2005 | Registratio | [address] | [address] | | | | n | [place] Mailcode: RPB07 | [address] | | | | | [place], [place] | [place], [place] | | | | | [address] | [address] | | | | | [phone] | [phone] | | | | | | | [...]
--- OUTSIDE RECORDS SUMMARY | ~2019-12-13 | XMS | Encounter Summary ---
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 Diagnosis: Gallup I: 1. (296.32) Major depressive disorder, recurrent, moderate. 2. (309.24) Adjustment disorder with anxiety. 3. 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 Gallup II: Deferred Gallup III: abdominal pain, migraine headache, low back pain. Gallup IV: low finances Gallup V: GAF 55-60 Plan: Return in 2 weeks. Check mood, pacing, relaxation, activity, distraction. Continue cognit gerda/behavioral therapy. Set goals for summer activity. Total time spent with patient was approximately 45 minutes. LUKASZ CHARLES PHD [facility] [address] [place] [address] And [facility], [address] [place] [address] documented in this encount er Plan of [...] | Major depressive disorder, recurrent episode, moderate ([facility]) Major depressive | | disorder, [...]
--- OUTSIDE RECORDS SUMMARY | ~2019-12-13 | XMS | Encounter Summary ---
Demographics + + + | Address | [address] | | | [place] [address] | + + + | Home Phone [...] Team Providers + +------+ + | Care Latent Print Examiner Name | Role | Phone | [...] | Epigastric | T, ANP | [address] | | | | | pain Status | [place], [place] | [address] | | | | | post | [address] | [place] | | | | | bariatric | | [place], 4th | | | | | surgery | | floor | | | | | Procedures | | [place], [place] | | | | | CONSULT TO | | [address] | | | | | GI PROCEDURE | | Phone: | | | | | UNIT: EGD | | [phone] | | | | | | | Fax: | | | | | | | [phone] | +--------+--------+ + + + + Reason [...] | | | | | | Rd [place], | | | | | | | [place] | | | | | | | [address] | | | | | | | Phone: | | | | | | | [phone] | | | | | | | Fax: | | | | | | | [phone] | +--------+--------+ + + + + Encounter Details +--------+---------+ + + + | Date | Type | Department | Care Team | Description | +--------+---------+ + + + | 08/28/ | Office | Digestive Health | Chris Padgett, | Epigastric Pain | | 2008 | Visit | [place] [address] | [address] | (Primary Dx); Status | | | | Ave Mailcode: CH4S | [facility] [address] | Post Bariatric | | | | Center for [facility] | [place], [place] | Surgery | | | | and Healing, | [address] | | | | | | [phone] | | | | | [place], [place] | | | | | | [address] | | | | | | [phone] | | | +--------+---------+ + + + [...] + + +--------+ + + | [place] [facility] | Procedures | Routin | [...] Performed At | + + + | [id number] Estimated GFR > 60 mL/min/1.73 sq m if non- | [facility] | | [place] [id number] Estimated GFR > 60 mL/min/1.73 sq m [...] + + | [facility] | [address] | [place] [address] | | | PATHOLOGY | [address] | | | + + + + + | [facility] | [address] | [place] [address] | | | PATHOLOGY | [address] | | | + + + + + documented in this encounter Visit Diagnoses + + | Diagnosis | + + | Epigastric pain - Primary Abdominal pain, epigastric | + + | Status post bariatric surgery Bariatric surgery status | + + documented in this encounter"
--- OUTSIDE RECORDS SUMMARY | ~2019-12-13 | XMS | Encounter Summary ---
Demographics + + + | Address | [address] | | | [place] [address] | + + + | Home Phone [...] Team Providers + +------+ + | Care Map Clerk Name | Role | Phone | [...] + + | 06/29/ | Telephone | [facility] | Alanis, | Illness | | 2017 | | MEDICINE [address] | MD [place] | | | | | [place], | [address] [facility] | | | | | [place] [address] | [place] [address] | | | | | [phone] | [phone] | | | | | | | [...] in angie Patient can be reached at [phone] signed by Shalonda Mcdermott at 06/29/2017 4:31 PM PSTdocumented in this encounter Plan of Treatment +--------+---------+ + + + | Date | Type | Specialty | Care Team | Description | +--------+---------+ + + + | 12/20/ | Office | Audiology | Elisabet Munson MS | | | 2019 | Visit | | [facility] [address] | | | | | | [address] [place] | | | | | | [place] [address] | | | | | | [phone] | | | | | | | | +--------+---------+ + + + | 12/20/ | Office | Otolaryngology | Ulysses Genao MD | | | 2019 | Visit | | [address] | | | | | | [address] [place] | | | | | | [place] [address] | | | | | | [phone] | | | | | | | | +--------+---------+ + + + | 02/15/ | Office | Internal Medicine | Alanis, | | | 2019 | Visit | | MD [place] | | | | | | [address] [place] | | | | | | [place] [address] | | | | | | [phone] | | | | | | | | +--------+---------+ + + + documented as of this encounter Visit Diagnoses Not on filedocumented in this encounter"
--- OUTSIDE RECORDS SUMMARY | ~2019-12-13 | XMS | Encounter Summary ---
Demographics + + + | Address | [address] | | | [place] [address] | + + + | Home Phone [...] Team Providers + +------+ + | Care Biodiesel Production Technician Name | Role | Phone | [...] 2006 | Visit | Rheumatology 3[address] | SENIOR QUALITY ASSURANCE ANALYST | (Primary Dx); | | | | [address] [facility]arm[facility]illing | | Fibromyalgia; | | | | Mailcode: OPC5 | | Fibromyalgia | | | | Outpatient Clinic | | | | | | Building [place], | | | | | | [place] [address] | | | | | | [phone] | | | +--------+---------+ + + + [...] discomfort- entire abd around to back. Seeing [facility]. Fentanyl patch helped pain a [...]
--- OUTSIDE RECORDS SUMMARY | ~2019-12-13 | XMS | Encounter Summary ---
Demographics + + + | Address | [address] | | | [place] [address] | + + + | Home Phone [...] Team Providers + +------+ + | Care French Cord Binder Name | Role | Phone | [...] | 12/11/ | Refill | [facility] | Alanis, | Medication Refill | | 2019 | | MEDICINE [address] | MD [place] | | | | | [place], | [address] | | | | | [place] [address] | [place] [address] | | | | | [phone] | [phone] | | | | | | | [...] | | | | | | [place] [address] | | | | | | [phone] | | | | | | | | +--------+---------+ + + + | 12/20/ | Office | Otolaryngology | Ulysses Genao MD | | | 2019 | Visit | | [address] | | | | | | [address] [place] | | | | | | [place] [address] | | | | | | [phone] | | | | | | | | +--------+---------+ + + + | 02/15/ | Office | Internal Medicine | Alanis, | | | 2019 | Visit | | MD [place] | | | | | | [address] [place] | | | | | | [place] [address] | | | | | | [phone] | | | | | | | [...]
--- OUTSIDE RECORDS SUMMARY | ~2019-12-13 | XMS | Encounter Summary ---
Demographics + + + | Address | [address] | | | [place] [address] | + + + | Home Phone [...] Team Providers + +------+ + | Care Copier And Printer Field Technician Name | Role | Phone [...] + | 01/20/ | Refill | [facility] INTERNAL | Alanis, | Medication Refill | | 2017 | | MEDICINE [address] | MD Petrona | | | | | [place], | [address] [facility] | | | | | [place] [address] | [place] [address] | | | | | [phone] | [phone] | | | | | | | [...] Telephone Encounter - Maggie Montoya LPN - 01/20/2018 11:08 AM PDTLast appt: 01/15/18 Next appt: 03/24/18 doc umented in this encounter Plan of Treatment [...] | | | | | [place] [address] | | | | | | [phone] | | | | | | | | +--------+---------+ + + + | 12/20/ | Office | Otolaryngology | Ulysses Genao MD | | | 2019 | Visit | | [address] | | | | | | [place] | | | | | | [place] [address] | | | | | | [phone] | | | | | | | | +--------+---------+ + + + | 02/15/ | Office | Internal Medicine | Alanis, | | | 2019 | Visit | | MD Petrona | | | | | | [address] [place] | | | | | | [place] [address] | | | | | | [phone] | | | | | | | | +--------+---------+ + + + documented as of this encounter Visit Diagnoses Not on filedocumented in this encounter"
--- OUTSIDE RECORDS SUMMARY | ~2019-12-13 | XMS | Encounter Summary ---
Demographics + + + | Address | [address] | | | [place] [address] | + + + | Home Phone [...] Providers + +------+ + | Care Research Psychologist Name | Role | Phone | [...] [address] | | | | | [place], [place] | [place] | | | | | [address] | [address] | | | | | [phone] | [phone] | | | | | | | [...]
--- OUTSIDE RECORDS SUMMARY | ~2019-12-13 | XMS | Encounter Summary ---
Demographics + + + | Address | [address] | | | [place] [address] | + + + | Home Phone [...] Providers + +------+ + | Care Wire Coiler Name | Role | Phone | + [...] | | | Metabolism | bypass | [address] | [address] | | | | | Hypovitamino | [address], | Ave | | | | | sis D [address] | [address] | [place], [place] | | | | | nutritional | [place], [place] | [address] | | | | | deficiency | [address] | Phone: | | | | | Other | Phone: | [phone] | | | | | protein-jose manuel | [phone] | Fax: | | | | | nick | Fax: | [phone] | | | | | malnutrition | [phone] | | | | | | Weight | | | | | | | gain | | | | | | | Procedures | | | | | | | CONSULT TO | | | | | | | ENDO | | | | | | | [address] | | | | | | | [address] | | | +--------+--------+ + + + [...] | | | [facility] | [place], [place] | Dx); Hypothyroidism; | | | | [address] | [address] | Essential | | | | [address] | [phone] | hypertension 401.9; | | | | [facility] | | Fibromyalgia | | | | Physician's | | syndrome 729.1 | | | | Pavilion [place], | | | | | | [place] [address] | | | | | | [phone] | | | +--------+---------+ + + + [...] Hives Mainly in the legs Clindamycin Codeine Izoxcyp-Dzrfdhcekg-Hae-Caff Balance problems Fioricet W/Codeine (Bobxcisqmg-Otrpxwovez-Jfa-Cod) Keflex (Cephalexin) Morphine IM ( only in [facility]) made gut pain worse 08/27/06: Trial of oral MSIR caused leg swelling Penicillins Sulfa (Sulfonamide Antibiotics) Tramadol Current Outpatient Prescriptions Medication Sig CALCIUM 600 WITH VITAMIN D OR 1000 mg tab 4 x daily cholecalciferol, Vitamin D3, 1,000 unit Oral tablet Take 4,000 Units by mouth once hcad y. Cyanocobalamin 1,000 mcg/mL Injection Syringe 1 [...] U/L 41 ANION GAP 8 VITAMIN B12, [id number] pg/ml >2000 (H) HEMOGLOBIN A1C <=5.6 % [...] SERUM 15.0-85.0 pg/ml 222.9 (H) VITAMIN B12, [id number] pg/ml > 2000 HEMOGLOBIN A1C <=5.6 % [...]
--- OUTSIDE RECORDS SUMMARY | ~2019-12-13 | XMS | Encounter Summary ---
Demographics + + + | Address | [address] | | | [place] [address] | + + + | Home Phone [...] Team Providers + +------+ + | Care Crossing Flagman Name | Role | Phone | + +------+ + | Pedrito Gutierrez MD | PCP | | + +------+ + Encounter Details +--------+ + + + + | Date | Type | Department | Care Team | Description | +--------+ + + + + | 07/01/ | Orders Only | Digestive Health | Chris Padgett, | Status Post | | 2007 | | [place] [address] | [address] [facility] | Bariatric Surgery | | | | Ave Mailcode: CH4S | [address] | (Primary Dx) | | | | [facility] | [place], [place] | | | | | and Healing, | [address] | | | | | Building 1, 6th | [phone] | | | | | Floor [place], [place] | | | | | | [address] | | | | | | [phone] | | | +--------+ + + + [...] | | | | | ng/mLPerformed by [facility] | | | | | | [facility],[address] | | | | | | [place], [place] [address] | | | | | | [phone] | | | | | | Sincere [...] [facility] | [address] | [place], [place] | | | UNIV PTH - INT[facility] | | [address] | | + + + + + [...] | + + + + + | [facility] | [address] | [place] [address] | | | LABORATORY | | | [...] RLB ([address] [facility]) | | | [facility] [place] [address] | | | [place] [address] | | + + + + + + + + | Performing | Address | City/State/Zipcode | Phone Number | | Organization | | | | + + + + + | [facility] | [address] | [place] [address] | | | LABORATORY | | | [...] RL ([address] [facility]) | | | [facility] [place] [address] | | | [place] [address] | | + + + + + + + + | Performing | Address | City/State/Zipcode | Phone Number | | Organization | | | | + + + + + | [facility] | [address] | [place] [address] | | | LABORATORY | | | [...] Performed At | + + + | [address] Estimated GFR > 60 mL/min/1.73 sq m if non- | [facility] | | [address] Estimated GFR > 60 mL/min/1.73 sq m [...] + + + + + | [facility] DEPARTMENT OF | [address] | [place] [address] | | | PATHOLOGY | [address] | | | + + + + + | [place] DEPARTMENT | [address] | [place] [address] | | | PATHOLOGY | [address] [...] [facility] | [address] | [place] [address] | | | PATHOLOGY | [address] | | | + + + + + | [facility] | [address] | [place] [address] | | | PATHOLOGY | [address] | | | + + + + + documented in this encounter Visit Diagnoses + + | Diagnosis | + + | Status post bariatric surgery - Primary Bariatric surgery status | + + documented in this encounter"
--- OUTSIDE RECORDS SUMMARY | ~2019-12-13 | XMS | Encounter Summary ---
Demographics + + + | Address | [address] | | | [place] [address] | + + + | Home Phone [...] Team Providers + +------+ + | Care Generator Worker Name | Role | Phone | [...] | | | | | | | [place], [place] | | | | | | | [address] | | | | | | | Phone: | | | | | | | [phone] | | | | | | | Fax: | | | | | | | [phone] | +--------+--------+ + + + + Encounter Details +--------+---------+ + + + | Date | Type | Department | Care Team | Description | +--------+---------+ + + + | 01/05/ | Office | Digestive Health | Eliezer Ruano, | Follow-Up | | 2007 | Visit | Center [address] | [address] [facility] | Examination | | | | Avjennifer Mailcode: CH4S | [address] | Following Surgery | | | | [facility] | [place], [place] | (Primary Dx) | | | | and Healing, | [address] | | | | | Building | [phone] | | | | | Floor [place], [place] | | | | | | [address] | | | | | | [phone] | | | +--------+---------+ + + + [...] and plan of care. ELIEZER RUANO MD [facility] [address] [place] [address] And [facility], [address] [place] [address] Tejas Trevino - 01/05 1:54 PM PDTS: Pt is here one week postop lysis of adhesions. She is doing well. She i s still having some pain. PE: Midline incision closed with reshma. [place] removed. There was a small opening of [...]
--- OUTSIDE RECORDS SUMMARY | ~2019-12-13 | XMS | Encounter Summary ---
Demographics + + + | Address | [address] | | | [place] [address] | + + + | Home Phone [...] Providers + +------+ + | Care Cardiac Rehabilitation Program Director Name | Role | Phone [...] | | 2005 | Activity | TRACE iWlson MD [address] | | | | | [place] Mailcode: RPB07 | [place], [place] | | | | | [place], [place] | [address] | | | | | [address] | [phone] | | | | | [phone] | | | +--------+ + + + [...] M.D./PathologistT:04/06/ | | | | | | 06:[facility] I have reviewed | | | | [...] + + | [facility] | [address] | [place] [address] | | | PATHOLOGY | [address] | | | + + + + + | [facility] DEPARTMENT OF | [facility] | [place] [address] | | | PATHOLOGY | [address] | | | + + + + + documented in this encounter Visit Diagnoses Not on filedocumented in this encounter"
--- OUTSIDE RECORDS SUMMARY | ~2019-12-13 | XMS | Encounter Summary ---
Demographics + + + | Address | [address] | | | [place] [address] | + + + | Home Phone [...] Team Providers + +------+ + | Care Glassware Verifier Name | Role | Phone | + [...] [address] | | | | | [facility] | [place], [place] | | | | | and Healing, | [address] | | | | | [facility] | [phone] | | | | | Floor [place], [place] | | | | | | [address] | | | | | | [phone] | | | +--------+ + + + [...]
--- OUTSIDE RECORDS SUMMARY | ~2019-12-13 | XMS | Encounter Summary ---
Demographics + + + | Address | [address] | | | [place] [address] | + + + | Home Phone [...] Team Providers + +------+ + | Care Composite Boat Builder Name | Role | Phone | [...] | | | | | [facility] | | | | | | [address] | | | | | | Mailcode: CH15P | | | | | | [place] [facility] | | | | | | and Healing, | | | | | | | | | | | | Floor [place], [place] | | | | | | [address] | | | | | | [phone] | | | +--------+ + + + [...]
--- OUTSIDE RECORDS SUMMARY | ~2019-12-13 | XMS | Encounter Summary ---
Demographics + + + | Address | [address] | | | [place] [address] | + + + | Home Phone [...] Team Providers + +------+ + | Care Drafter Automotive Design Name | Role | Phone | + +------+ + | Petrona Thapa | PCP | | | MD | | | + +------+ + Reason for Visit +--------+--------+ + | Reason | Onset | Comments | | | Date | | +--------+--------+ + | Other | 03/19/ | bowel issues | | | 2017 | | +--------+--------+ + Encounter Details +--------+ + + + + | Date | Type | Department | Care Team | Description | +--------+ + + + + | 03/19/ | Telephone | [facility] INTERNAL | Alanis, | Other (bowel issues) | | 2017 | | MEDICINE [address] | MD Petrona | | | | | [place], | [address] [facility] | | | | | [place] [address] | [place] [address] | | | | | [phone] | [phone] | | | | | | | [...] Telephone Encounter - Maggie Montoya LPN - 03/19/2018 2:36 PM PDTPatient called back and w as advised to call and follow up with the surgeon regarding dietary restrictions since bowel surgery. States understands and acceptsElectronically signed by Maggie Montoya LPN at 2017 2:38 PM PDTTelephone Encounter - Maggie Montoya LPN - 03/19/2018 1:59 PM PDTTried wendi vela patient back, left message on voicemail, that MD out of the office and advised to contvera ct her surgeon's office or her local MD, Dr. Vivas's office whom she is following up with, d ue not able to travel this far at this time. Electronically signed by Maggie Montoya LPN at 1 2:02 PM PDTTelephone Encounter - Bob Melgar - 03/19/2018 1:39 PM PDT Patient called back to check on status of message. Patient needs some advice on diet she's a llergic to dairy products. Please call [phone]. elephone Encounter - SakshiAdriana Malissa - 03/19/2018 12:24 PM PDTPatient called wanting to speak with the nurse. Patient stated she had a problem wit h her bowels emptying out everywhere this morning and is really weak but does not want to go to the hospital again. Patient stated she is doing what she can and trying to hydrate with water and 7-up, had a little bit of a peanut butter sandwich for protein so she can take he r antibiotic and medications. Patient has no personal care aide with her today and her son is in [facility]. Patient would like a call back to advise, . documented in this encounter Plan of Treatment +--------+---------+ + + + | Date | Type | Specialty | Care Team | Description | +--------+---------+ + + + | 12/20/ | Office | Audiology | Elisabet Munson, MS | | | 2019 | Visit | | [facility] [address] | | | | | | [place] | | | | | | [place] [address] | | | | | | [phone] | | | | | | | | +--------+---------+ + + + | 12/20/ | Office | Otolaryngology | Ulysses Genao MD | | | 2019 | Visit | | [address] | | | | | | [place] | | | | | | [place] [address] | | | | | | [phone] | | | | | | | | +--------+---------+ + + + | 02/15/ | Office | Internal Medicine | Alanis, | | | 2019 | Visit | | MD Petrona | | | | | | [address] [place] | | | | | | [place] [address] | | | | | | [phone] | | | | | | | | +--------+---------+ + + + documented as of this encounter Visit Diagnoses Not on filedocumented in this encounter"
--- OUTSIDE RECORDS SUMMARY | ~2019-12-13 | XMS | Encounter Summary ---
Demographics + + + | Address | [address] | | | [place] [address] | + + + | Home Phone [...] Team Providers + +------+ + | Care Deck Scaler Name | Role | Phone | + [...] [address] | | | | | [place], [place] | [place], [place] | | | | | [address] | [address] | | | | | [phone] | [phone] | | | | | | | [...] + | [facility] DEPARTMENT OF | [address] | [place] [address] | | | PATHOLOGY | [address] | | | + + + + + | [facility] DEPARTMENT OF | [address] | [place] [address] | | | PATHOLOGY | [address] [...] + + | [facility] DEPARTMENT OF | [address] | [place] [address] | | | PATHOLOGY | [address] | | | + + + + + | [facility] DEPARTMENT OF | [address] | [place] [address] | | | PATHOLOGY | [address] [...] Performed At | + + + | [id number] Estimated GFR > 60 mL/min/1.73 sq m if non- | [facility] | | 213867 Estimated GFR > 60 mL/min/1.73 sq m [...] | [facility] | [address] | [place] [address] | | | PATHOLOGY | [address] | | | + + + + + | [facility] | [address] | [place] [address] | | | PATHOLOGY | [address] | | | + + + + + documented in this encounter Visit Diagnoses Not on filedocumented in this encounter"
--- OUTSIDE RECORDS SUMMARY | ~2019-12-13 | XMS | Encounter Summary ---
Demographics + + + | Address | [address] | | | [place] [address] | + + + | Home Phone [...] Providers + +------+ + | Care Demonstrator Knitting Name | Role | Phone | + [...] + + | 11/17/ | Telephone | [facility] INTERNAL | Alanis, | ER Follow-up | | 2019 | | MEDICINE [address] | MD Petrona | | | | | [place], | [address] [facility] | | | | | [place] [address] | [place] [address] | | | | | [phone] | [phone] | | | | | | | [...] the name. Please call slick jacobsen at [phone]. docum ented in this encounter Plan of [...] | | | | | | [place] [address] | | | | | | [phone] | | | | | | | | +--------+---------+ + + + | 12/20/ | Office | Otolaryngology | Ulysses Genao MD | | | 2019 | Visit | | [address] | | | | | | [address] | | | | | | [place] [address] | | | | | | [phone] | | | | | | | | +--------+---------+ + + + | 02/15/ | Office | Internal Medicine | Alanis, | | | 2019 | Visit | | MD Petrona | | | | | | [address] [place] | | | | | | [place] [address] | | | | | | [phone] | | | | | | | | +--------+---------+ + + + documented as of this encounter Visit Diagnoses Not on filedocumented in this encounter"
--- OUTSIDE RECORDS SUMMARY | ~2019-12-13 | XMS | Encounter Summary ---
Demographics + + + | Address | [address] | | | [place] [address] | + + + | Home Phone [...] Providers + +------+ + | Care Clinical Dietetic Technician Name | Role | Phone | + +------+ + | Maria Esther Cintron MD | PCP | | + +------+ + Encounter Details +--------+ + + + + | Date | Type | Department | Care Team | Description | +--------+ + + + + | 02/16/ | Telephone | Digestive Health | Chris Padgett, | | | 2007 | | [place] [address] | [address] [facility] | | | | | [place] Mailcode: CH4S | [address] | | | | | Center for Health | [place], [place] | | | | | and Healing, | [address] | | | | | Building , 6th | [phone] | | | | | Floor [place], [place] | | | | | | [address] | | | | | | [phone] | | | +--------+ + + + [...]
--- OUTSIDE RECORDS SUMMARY | ~2019-12-13 | XMS | Encounter Summary ---
Demographics + + + | Address | [address] | | | [place] [address] | + + + | Home Phone [...] Team Providers + +------+ + | Care Title Clerk Automobile Name | Role | Phone [...] | Pain | Diagnoses | [place], | [place], | | | | Management | LBP (low | NIHARIKA Jean | Lukasz Rhodes, PhD | | | | | back pain) | [address] | [address] | | | | | DJD | [address] | Ave | | | | | (degenerativ | [place], [place] | [place], [place] | | | | | e joint | [address] | [address] | | | | | disease) of | | Phone: | | | | | knee Knee | | [phone] | | | | | pain Major | | Fax: | | | | | depressive | | [phone] | | | | | disorder, | [...] 11/23/ | Office | [facility] at [facility] | Lukasz Charles, | Major Depressive | | 2007 | Visit | [address] | PhD [address] [place] | Disorder, Recurrent | | | | Mailcode: 15P | [place], [place] | Episode, Moderate | | | | [place] for [facility] | [address] | ([facility]); LBP (Low Back | | | | and Healing, | [phone] | Pain); Bilateral | | | | | | Knee Pain; | | | | Floor [place], [place] | | Adjustment Disorder | | | | [address] | | with Anxiety | | | | [phone] | | | +--------+---------+ + + + [...] frustra tion by being less active. Diagnosis: [place] I: 1. (296.32) Major depressive disorder, recurrent, moderate. 2. (309.24) Adjustment disorder with anxiety. 3. 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 [place] II: Deferred [place] III: abdominal pain, migraine headache, low back pain. [place] IV: low finances [place] V: GAF 55-60 Plan: return with next medical follow-up appointment. Check mood, abdominal pain, relaxat ion, activity, distraction. Continue cognitive/behavioral therapy. Total time spent with patient was approximately 45 minutes. LUKASZ CHARLES [facility] [address] [facility], [address] [place] [address] documented in this encount er Plan of [...]
--- OUTSIDE RECORDS SUMMARY | ~2019-12-13 | XMS | Encounter Summary ---
Demographics + + + | Address | [address] | | | [place] [address] | + + + | Home Phone [...] Providers + +------+ + | Care Commercial Roofing Estimator Name | Role | Phone | [...] Pavilion | | | | | | [place], [place] | | | | | | [address] | | | | | | [phone] | | | +--------+---------+ + + + [...] take place on the hill at the [facility]: Surgeries scheduled in the [facility] ( [facility]): registration is located on the 4th floor of [facility] (Day Surgery). Surgeries scheduled in the [facility]: registration is located on the 9th floor. Surgeries scheduled in [facility]: registration is located on the 6th floor. Surgeries scheduled in the [facility]: registration is located i n the [facility] on the first floor. For surgeries scheduled to take place at the [place] [facility]: registration is l [...] If you use specialized medical equipment at [facility], please check with your provider before [...]
--- OUTSIDE RECORDS SUMMARY | ~2019-12-13 | XMS | Encounter Summary ---
Demographics + + + | Address | [address] | | | [place] [address] | + + + | Home Phone [...] Team Providers + +------+ + | Care Diet Technician Registered Name | Role | Phone | + [...] | 2006 | TRANSCRIPTI | Faculty at [facility] | [address] [facility] | QUESTIONNAIRE | | | ON | for Health and | [facility], [place] | | | | | Healing [address] | [address] | | | | | [place] Mailcode: | [phone] | | | | | CH12A [facility] | | | | | | Health and Healing, | | | | | | [facility] | | | | | | [place], [place] | | | | | | [address] | | | | | | [phone] | | | +--------+ + + + [...]
--- OUTSIDE RECORDS SUMMARY | ~2019-12-13 | XMS | Encounter Summary ---
Demographics + + + | Address | [address] | | | [place] [address] | + + + | Home Phone [...] Providers + +------+ + | Care Estate Agent Name | Role | Phone | + +------+ + | Sulaiman Carrera MD | PCP | | + +------+ + Encounter Details +--------+ + + + + | Date | Type | Department | Care Team | Description | +--------+ + + + + | 06/12/ | Telephone | Digestive Health | Chris Padgett, | | | 2008 | | [place] [address] | [address] [facility] | | | | | [place] Mailcode: CH4S | [address] | | | | | Center for Health | [place], [place] | | | | | and Healing, | [address] | | | | | [facility] 1, 6th | [phone] | | | | | Floor [place], [place] | | | | | | [address] | | | | | | [phone] | | | +--------+ + + + [...]
--- OUTSIDE RECORDS SUMMARY | ~2019-12-13 | XMS | Encounter Summary ---
Demographics + + + | Address | [address] | | | [place] [address] | + + + | Home Phone [...] Providers + +------+ + | Care Waiter/Waitress Informal Name | Role | Phone | + [...] | | [place], | [address] [facility] | | | | | [place] [address] | [place] [address] | | | | | [phone] | [phone] | | | | | | | [...] [facility] [address] | | | | | | ST [place] | | | | | | [place] [address] | | | | | | [phone] | | | | | | | | +--------+---------+ + + + | 12/20/ | Office | Otolaryngology | Ulysses Genao MD | | | 2019 | Visit | | [address] | | | | | | [address] [place] | | | | | | [place] [address] | | | | | | [phone] | | | | | | | | +--------+---------+ + + + | 02/15/ | Office | Internal Medicine | Alanis, | | | 2019 | Visit | | MD [place]ron[place] | | | | | | [address] [place] | | | | | | [place] [address] | | | | | | [phone] | | | | | | | | +--------+---------+ + + + documented as of this encounter Visit Diagnoses Not on filedocumented in this encounter"
--- OUTSIDE RECORDS SUMMARY | ~2019-12-13 | XMS | Encounter Summary ---
Demographics + + + | Address | [address] | | | [place] [address] | + + + | Home Phone [...] + +------+ + | Care Video Game Repair Technician Name | Role | Phone [...] | | Center at [facility] [address] | ADVANCED QUALITY ENGINEER [address] | | | | | [address] | , [address] | | | | | Mailcode: Center | [place], [place] | | | | | [facility] and | [address] | | | | | Healing, [address] | [phone] | | | | | [place], [place] | | | | | | [address] | | | | | | [phone] | | | +--------+ + + + [...]
--- OUTSIDE RECORDS SUMMARY | ~2019-12-13 | XMS | Encounter Summary ---
Demographics + + + | Address | [address] | | | [place] [address] | + + + | Home Phone [...] Team Providers + +------+ + | Care Rail Transit Operator Name | Role | Phone | [...] | | | | Clinical Nutrition | [place], [place] | | | | | [address] | [address] | | | | | Loop Mailcode: OPC5 | [phone] | | | | | Outpatient Clinic | | | | | | [facility] [place], | | | | | | [place] [address] | | | | | | [phone] | | | +--------+ + + + [...]
--- OUTSIDE RECORDS SUMMARY | ~2019-12-13 | XMS | Encounter Summary ---
Demographics + + + | Address | [address] | | | [place] [address] | + + + | Home Phone [...] Providers + +------+ + | Care Director Statistical Programming Name | Role | Phone | + +------+ + | Sulaiman Carrera MD | PCP | | + +------+ + Encounter Details +--------+ + + + + | Date | Type | Department | Care Team | Description | +--------+ + + + + | 01/02/ | Ancillary | Registration 3181 | Beto Meeks MD | | | 2004 | Registratio | [facility] | [address] | | | | n | Peterson Mailcode: [id number] | [place], [place] | | | | | [place], [place] | [address] | | | | | [address] | [phone] | | | | | [phone] | | | +--------+ + + + [...] | [address] | [place] [address] | | | PATHOLOGY | [address] | | | + + + + + | [facility] DEPARTMENT OF | [address] | [place] [address] | | | PATHOLOGY | [address] [...] + + + + | [facility] DEPARTMENT OF | [address] [facility] | [place] [address] | | | PATHOLOGY | [address] | | | + + + + + | [place] DEPARTMENT OF | [address] [facility] | [place] [address] | | | PATHOLOGY | [address] [...] + + + + + | [facility] | [address] | [place] [address] | | | LABORATORY | | | | + + + + + documented in this encounter Visit Diagnoses Not on filedocumented in this encounter"
--- OUTSIDE RECORDS SUMMARY | ~2019-12-13 | XMS | Encounter Summary ---
Demographics + + + | Address | [address] | | | [place] [address] | + + + | Home Phone [...] + +------+ + | Care Professor Of Sport Management Name | Role | Phone | [...] as of this encounter Progress Notes Interface, Motel Maid In - 01/03/2006 3:02 AM PDTCLINIC DATE: 11/01/2002 NEUROMUSCULAR CLINIC PRIMARY CARE PROVIDER: Pedrito Gutierrez M.D. OTHER PHYSICIAN: Issac Meeks M.D., [facility] Endocrinology. PROBLEM LIST 1. Fibromyalgia and [...] fatigue. She reportedly has begun walking with [place] crutches much of the time due to [...] Irving Pete M.D. Neurology/Neuromuscular Fellow TBD / [id number] / [id number] / [id number] / [id number] C: 11/10/2002 BRAD cc: Issac Meeks M.D. [facility] Endocrinology Pedrito Gutierrez M.D. [address] [place], [place] [id number] signed by Interface, Motel Maid In at 01/03/2006 3:0 2 AM PDTdocumented in this encounter Plan of Treatment Not on filedocumented as of this encounter Visit Diagnoses Not on filedocumented in this encounter
--- OUTSIDE RECORDS SUMMARY | ~2019-12-13 | XMS | Encounter Summary ---
Demographics + + + | Address | [address] | | | [place] [address] | + + + | Home Phone [...] Providers + +------+ + | Care Director Music Name | Role | Phone | + +------+ + | Pedrito Gutierrez MD | PCP | | + +------+ + Encounter Details +--------+ + + + + | Date | Type | Department | Care Team | Description | +--------+ + + + + | 03/26/ | Telephone | [facility] Division of | Carlos Arreola, | | | 2005 | | Gastroenterology/Hep | [address] | | | | | atology [address] | [address] | | | | | [address] | [place] [address] | | | | | Mailcode: [id number] | [phone] | | | | | Physician's Sharmila | | | | | | [address] | | | | | | [place], [place] | | | | | | [address] | | | | | | [phone] | | | +--------+ + + + [...]
--- OUTSIDE RECORDS SUMMARY | ~2019-12-13 | XMS | Encounter Summary ---
Demographics + + + | Address | [address] | | | [place] [address] | + + + | Home Phone [...] Team Providers + +------+ + | Care Indian Nanny Name | Role | Phone | [...] Rd | | | | | | [place], [place] | | | | | | [address] | | | +--------+ + + + [...] as of this encounter Progress Notes Interface, Blow Molding Machine Operator In - 12/06/2006 2:32 AM PDT [id number] GEOVANNI Barnes [id number] Clinic Date: 10/29/2006 Clinic: Endocrinology Subjective: Belinda [...] been working with the Pain Clinic at [facility] to optimize her pain management. Fortunately, the [...] patch 25 mcg for 72 hours. 2. [place]/acetaminophen 10 mg/325 mg, 1 every 6 hours [...] months. Beto Meeks M.D. PD / HS [id number] / [id number] / [id number] / [id number] cc: Pedrito Gutierrez M.D. [address] [address] Chris Padgett M.D. Electronically signed by Beto Meeks 12-05-2006 05:17:05 AM documented in this encounter Plan of Treatment Not on filedocumented as of this encounter Visit Diagnoses Not on filedocumented in this encounter"
--- OUTSIDE RECORDS SUMMARY | ~2019-12-13 | XMS | Encounter Summary ---
Demographics + + + | Address | [address] | | | [place] [address] | + + + | Home Phone [...] Team Providers + +------+ + | Care Package Reinspector Name | Role | Phone | + [...] | | | [facility] | [place], [place] | | | | | [address] | [address] | | | | | [address] | [phone] | | | | | Physician's | | | | | | Pavilion, 1st floor | | | | | | [place], [place] | | | | | | [address] | | | | | | [phone] | | | +--------+--------+ + + + [...]
--- OUTSIDE RECORDS SUMMARY | ~2019-12-13 | XMS | Encounter Summary ---
Demographics + + + | Address | [address] | | | [place] [address] | + + + | Home Phone [...] Providers + +------+ + | Care Press Cutter Name | Role | Phone | [...] | | | | | | Mailcode: [facility] | | | | | | | [facility] Center | | | | | | | for Health | | | | | | | and Healing, | | | | | | | Building [address] | | | | | | | [facility] [place] | | | | | | | [address] | | | | | | | Phone: | | | | | | | [phone] | | | | | | | Fax: | | | | | | | [phone] | +--------+--------+ + + + + Encounter Details +--------+ + + + + | Date | Type | Department | Care Team | Description | +--------+ + + + + | 09/14/ | Hospital | [facility] GI PROCEDURE | Olivia, | | | 2008 | Encounter | [address] | MD Pedrito | | | | | Bethanie Mailcode: [facility] | | | | | | [facility] for | | | | | | Health and Healing, | | | | | | [address] | | | | | | [facility] [place] | | | | | | [address] | | | | | | [phone] | | | +--------+ + + + [...] Discharge Instructions Instructions Marleen Hogan - 09/14/2008 [facility] Endoscopy [address] [place] [address] Toll Free ext: [phone] Home Care Instructions after EGD (Upper Endoscopy) [...] hours, or on weekends and holidays Hospital Detective Supervisor and have the GI doctor transportation officer paged. The provider who performed your procedure [...] Meehan is a 48 y.o. female MR# [id number] presents today for an EG D to [...] 01/22/2006 Tramadol 01/22/2006 Morphine Clarithromycin Hives 06/28/2007 Rwyokcd-fjdzebvgil-aim-caff 08/28/2008 See procedure note 09/14/2008 documented in [...]
--- OUTSIDE RECORDS SUMMARY | ~2019-12-13 | XMS | Encounter Summary ---
Demographics + + + | Address | [address] | | | [place] [address] | + + + | Home Phone [...] Providers + +------+ + | Care Compressor Technician Name | Role | Phone | [...] + + | 07/28/ | Telephone | [facility] INTERNAL | Alnais, | Appointment | | 2017 | | MEDICINE [address] | MD [place]ron[place] | | | | | [place], | [address] [facility] | | | | | [place] [address] | [place] [address] | | | | | [phone] | [phone] | | | | | | | [...] spinal injections through the pain clinic and w ezequiel to know if she should keep the appt with Dr. Genao. I have advised that the consult [facility] physiatry would be for possible spinal injections [...] keep her appointment with Dr. Ulysses Genao [facility]. P M PSTdocumented in this encounter Plan of Treatment +--------+---------+ + + + | Date | Type | Specialty | Care Team | Description | +--------+---------+ + + + | 12/20/ | Office | Audiology | Elisabet Munson MS | | | 2019 | Visit | | [facility] [address] | | | | | | [address] [place] | | | | | | [place] [address] | | | | | | [phone] | | | | | | | | +--------+---------+ + + + | 12/20/ | Office | Otolaryngology | Ulysses Genao MD | | | 2019 | Visit | | [address] | | | | | | [address] [place] | | | | | | [place] [address] | | | | | | [phone] | | | | | | | | +--------+---------+ + + + | 02/15/ | Office | Internal Medicine | Alanis, | | | 2020 | Visit | | MD Petrona | | | | | | [address] [place] | | | | | | [place] [address] | | | | | | [phone] | | | | | | | | +--------+---------+ + + + documented as of this encounter Visit Diagnoses Not on filedocumented in this encounter"
--- OUTSIDE RECORDS SUMMARY | ~2019-12-13 | XMS | Encounter Summary ---
Demographics + + + | Address | [address] | | | [place] [address] | + + + | Home Phone [...] Team Providers + +------+ + | Care Directory Compiler Name | Role | Phone | + [...] | | | | [address] Physician's | [place], [place] | | | | | [address] | [address] | | | | | [place], [place] | [phone] | | | | | [address] | | | | | | [phone] | | | +--------+ + + + [...] | CT PELVIS W | Radiologist 1: RCIARDO, | | | | | CONTRAST | [...] + | Performing | Address | City/State[facility] | Phone Number | | Organization | | | | + +---------+ + + | [facility] DEPARTMENT OF | | | [...]
--- OUTSIDE RECORDS SUMMARY | ~2019-12-13 | XMS | Encounter Summary ---
Demographics + + + | Address | [address] | | | [place] [address] | + + + | Home Phone [...] Providers + +------+ + | Care Pediatric Anesthesiologist Name | Role | Phone | + [...] + | 02/24/ | Refill | [facility] INTERNAL | Alanis, | Medication Refill | | 2017 | | MEDICINE [address] | MD [place] | | | | | [place], | [address] | | | | | [place] [address] | [place] [address] | | | | | [phone] | [phone] | | | | | | | [...] | | | | | [place] [address] | | | | | | [phone] | | | | | | | | +--------+---------+ + + + | 12/20/ | Office | Otolaryngology | Ulysses Genao MD | | | 2019 | Visit | | [address] | | | | | | [place] | | | | | | [place] [address] | | | | | | [phone] | | | | | | | | +--------+---------+ + + + | 02/15/ | Office | Internal Medicine | Alanis, | | | 2019 | Visit | | MD [place] | | | | | | [address] [place] | | | | | | [place] [address] | | | | | | [phone] | | | | | | | | +--------+---------+ + + + documented as of this encounter Visit Diagnoses Not on filedocumented in this encounter"
--- OUTSIDE RECORDS SUMMARY | ~2019-12-13 | XMS | Encounter Summary ---
Demographics + + + | Address | [address] | | | [place] [address] | + + + | Home Phone [...] Providers + +------+ + | Care Housing Court Judge Name | Role | Phone | [...] | | | | Clinical Nutrition | [place], [place] | | | | | [address] | [address] | | | | | Loop Mailcode: [id number] | [phone] | | | | | Outpatient Clinic | | | | | | [facility] | | | | | | [place] [address] | | | | | | [phone] | | | +--------+ + + + [...] + + + + + | [facility] | [address] | [place] [address] | | | LABORATORY | | | [...] + + + | [facility] | [address] | [place] [address] | | | LABORATORY | | | [...] + + + + + | [facility] | [address] | [place] [address] | | | LABORATORY | | | | + + + + + documented in this encounter Visit Diagnoses Not on filedocumented in this encounter"
--- OUTSIDE RECORDS SUMMARY | ~2019-12-13 | XMS | Encounter Summary ---
Demographics + + + | Address | [address] | | | [place] [address] | + + + | Home Phone [...] | | | [facility] | [place], [place] | | | | | [address] | [address] | | | | | [address] | [phone] | | | | | Physician's | | | | | | Pavilion, [facility] floor | | | | | | [place], [place] | | | | | | [address] | | | | | | [phone] | | | +--------+ + + + [...] by | | | | | | [facility] | | | | | | Regional Laboratory. | | | | + + + + + + + + | Specimen | + + | | + + + + + + + | Performing | Address | City/State/Zipcode | Phone Number | | Organization | | | | + + + + + | [facility] | [address] | [place] [address] | | | LABORATORY | | | [...] pg/mL | | | | | [facility] | | | | | | Laboratory. | | | | + + + + + + + + | Specimen | + + | | + + + + + + + | Performing | Address | City/State/Zipcode | Phone Number | | Organization | | | | + + + + + | [facility] | [address] | [place] [address] | | | LABORATORY | | | [...] | + + + + + | [facility] | [address] | [place] [address] | | | PATHOLOGY | [address] | | | + + + + + | [facility] DEPARTMENT OF | [address] | [place] [address] | | | PATHOLOGY | [address] | | | + + + + + documented in this encounter Visit Diagnoses Not on filedocumented in this encounter"
--- OUTSIDE RECORDS SUMMARY | ~2019-12-13 | XMS | Encounter Summary ---
Demographics + + + | Address | [address] | | | [place] [address] | + + + | Home Phone [...] Team Providers + +------+ + | Care Railway Signal Electrician Name | Role | Phone | + +------+ + PCP | Unavailable | + +------+ + Encounter Details +--------+ + + + + | Date | Type | Department | Care Team | Description | +--------+ + + + + | 01/02/ | Telephone | Digestive Health | Kenisha Melton, | | | 2005 | | [place] [address] | [facility] [address] | | | | | [address] | [address] | | | | | Mailcode: [id number] | [place], [place] | | | | | Physician's Pavilion | [address] | | | | | [place], [place] | [phone] | | | | | [address] | | | | | | [phone] | | | +--------+ + + + [...]
--- OUTSIDE RECORDS SUMMARY | ~2019-12-13 | XMS | Encounter Summary ---
Demographics + + + | Address | [address] | | | [place] [address] | + + + | Home Phone [...] Providers + +------+ + | Care Manager Nc Name | Role | Phone | + [...] | | | | | | [place], | | | | | | | [place] | | | | | | | [address] | | | | | | | Phone: | | | | | | | [phone] | | | | | | | Fax: | | | | | | | [phone] | +--------+--------+ + + + + Encounter Details +--------+---------+ + + + | Date | Type | Department | Care Team | Description | +--------+---------+ + + + | 11/10/ | Office | Digestive Health | Chris Padgett, | Status Post | | 2007 | Visit | [facility] [address] | [address] | Bariatric Surgery; | | | | Ave Mailcode: CH4S | [address] | Abdominal Pain, | | | | Center [facility] | [place], [place] | Other Specified Site | | | | and Healing, | [address] | | | | | Building | [phone] | | | | | Floor [place], [place] | | | | | | [address] | | | | | | [phone] | | | +--------+---------+ + + + [...]
--- OUTSIDE RECORDS SUMMARY | ~2019-12-13 | XMS | Encounter Summary ---
Demographics + + + | Address | [address] | | | [place] [address] | + + + | Home Phone [...] Team Providers + +------+ + | Care Bilingual Operator Name | Role | Phone | [...] [id number] | | | | | | [place], [place] | | | | | | [address] | | | | | | [phone] | | | +--------+ + + + [...] | uIU/ml | | | | | [place] [...] | + + + + + | [facility] | [address] | [place] [address] | | | LABORATORY | | | | + + + + + documented in this encounter Visit Diagnoses Not on filedocumented in this encounter"
--- OUTSIDE RECORDS SUMMARY | ~2019-12-13 | XMS | Encounter Summary ---
Demographics + + + | Address | [address] | | | [place] [address] | + + + | Home Phone [...] Providers + +------+ + | Care Case Operator Name | Role | Phone | [...] | | | | pain | Jayce Weston | [facility] [address] | | | | | Procedures | [address] | [address] | | | | | CONSULT TO | [place], [place] | | | | | GI PROCEDURE | [address] | [address] | | | | | UNIT: | Phone: | | | | | | COLONOSCOPY | [phone] | | | | | | | Fax: | | | | | | | [phone] | | + + + + + [...] | | | | Mailcode: L223A | [place], [place] | | | | | Physician's Pavilion | [address] | | | | | [address] [place], [place] | [phone] | | | | | [address] | | | | | | [phone] | | | +--------+---------+ + + + [...] Ms. Meehan has been seen in the [facility] emergency dept twice in the last [...] [facility] | [address] | [place], [place] | | | [facility] | | [address] | | + + + + + documented in this encounter Visit Diagnoses + + | Diagnosis | + + | Chronic abdominal pain - Primary Abdominal pain, unspecified site | + + documented in this encounter
--- OUTSIDE RECORDS SUMMARY | ~2019-12-13 | XMS | Encounter Summary ---
Demographics + + + | Address | [address] | | | [place] [address] | + + + | Home Phone [...] Team Providers + +------+ + | Care Sleeve Machine Tender Name | Role | Phone [...] | Pain | Diagnoses | Miracle, | [place], | | | | Management | LBP (low | NIHARIKA Jean | Lukasz Rhodes, PhD | | | | | back pain) | [address] | [address] | | | | | DJD | [address] | Ave | | | | | (degenerativ | [place], [place] | [place] | | | | | e joint | [address] | [address] | | | | | disease) of | | Phone: | | | | | knee Knee | | [phone] | | | | | pain Major | | Fax: | | | | | depressive | | [phone] | | | | | disorder, | [...] Center at [facility] | Lukasz Charles, | Major Depressive | | 2007 | Visit | [address] | PhD [address] | Disorder, Recurrent | | | | Mailcode: [facility] | [place], [place] | Episode, Moderate | | | | Mentcle for [facility] | [address] | ([facility]); LBP (Low Back | | | | and Healing, | [phone] | Pain); Fibromyalgia | | | | | | syndrome 729.1; | | | | Floor [place], [place] | | Adjustment Disorder | | | | [address] | | with Anxiety; | | | | [phone] | | Bilateral Knee Pain; | | [...] skills during intense pain episode s. Diagnosis: [place]en I: 1. (296.32) Major depressive disorder, recurrent, moderate. 2. (309.24) Adjustment disorder with anxiety. 3. 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 Maben II: Deferred Maben III: abdominal pain, migraine headache, low back pain. Maben IV: low finances Maben V: GAF 55-60 Plan: return with next medical follow-up appointment. Check mood, knee surgery, relaxatio n, activity, distraction. Continue cognitive/behavioral therapy. Total time spent with patient was approximately 45 minutes. LUKASZ CHARLES [facility] [address] [facility], [address] [place] [address] documented in this encount er Plan of Treatment + + +--------+ + + | Name | Type | Priori | Associated Diagnoses | Order Schedule | | | | ty | | | + + +--------+ + + | FL PSYCHOTHERPY, | Procedures | Routin | Major Depressive | Ordered: 08/13/2007 | | OFFICE (37-51) | | e | Disorder, Recurrent | | | | | | Episode, Moderate | | | | | | ([facility]) LBP (Low Back | | | | [...]
--- OUTSIDE RECORDS SUMMARY | ~2019-12-13 | XMS | Encounter Summary ---
Demographics + + + | Address | [address] | | | [place] [address] | + + + | Home Phone [...] Team Providers + +------+ + | Care Rolls Mill Operator Name | Role | Phone [...] | ANP | | | | | [facility] | | | | | | [address] | | | | | | Mailcode: CH15P | | | | | | [facility] | | | | | | and Healing, | | | | | | Building | | | | | | Floor [place], [place] | | | | | | [address] | | | | | | [phone] | | | +--------+ + + + [...]
--- OUTSIDE RECORDS SUMMARY | ~2019-12-13 | XMS | Encounter Summary ---
[...] Team Providers + +------+ + | Care Gold Prospector Name | Role | Phone | + [...] | | | | | | Floor [place], [place] | | | | | | [address] | | | | | | [phone] | | | +--------+ + + + [...]
--- OUTSIDE RECORDS SUMMARY | ~2019-12-13 | XMS | Encounter Summary ---
Demographics + + + | Address | [address] | | | [place] [address] | + + + | Home Phone [...] Team Providers + +------+ + | Care Lacing Presser Name | Role | Phone | [...] | Osteopenia | MD Beto | Density [facility] | | | | | Procedures | [address] | [address] | | | | | CONSULT TO | Ave | [address] | | | | | BONE | [place], [place] | Rd Mailcode: | | | | | DENSITOMETRY | [address] | [address] | | | | | | Phone: | [address] | | | | | | [phone] | [place], [place] | | | | | | Fax: | [address] | | | | | | [phone] | Phone: | | | | | | | [phone] | | | | | | | Fax: | | | | | | | [phone] | +--------+--------+ + + + + Reason [...] | | | Center [facility] | [facility] [place] | | | | | Pavilion [address] | [address] | | | | | [address] | [phone] | | | | | Physician's Pavilion | | | | | | Physician's | | | | | | Pavilion [place], | | | | | | [place] [address] | | | | | | [phone] | | | +--------+ + + + [...]
--- OUTSIDE RECORDS SUMMARY | ~2019-12-13 | XMS | Encounter Summary ---
Demographics + + + | Address | [address] | | | [place] [address] [...] Team Providers + +------+ + | Care Gasoline Pump Installer Name | Role | Phone | [...] 09/23/ | Office | Pain Center at [facility] | Lukasz Charles, | Major Depressive | | 2006 | Visit | [address] | PhD [address] | Disorder, Recurrent | | | | Mailcode: CH15 | [place], [place] | Episode, Moderate | | | | Center for [facility] | [address] | (HCC); Chronic | | | | and Healing, | [phone] | Abdominal Pain; | | | | Building | | Herniated Lumbar | | | | Floor [place], [place] | | Intervertebral Disc | | | | [address] | | L4-5; DJD | | | | [phone] | | (Degenerative Joint | | | [...] progress but still neglects self-care occasionally. Diagnosis: [place] I: 1. (296.32) Major depressive disorder, recurrent, moderate. 2. (309.24) Adjustment disorder with anxiety. 3. 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 [place] II: Deferred [place] III: abdominal pain, migraine headache, low back pain. [place] IV: low finances [place] V: GAF 50 Plan: Return in 2 weeks. Check preparation for move and for niece's visit, [employer] gym, pacing, r elaxation, activity, distraction. Check managing Pain... book. Discuss need for further vi sits. Total time spent with patient was approximately 45 minutes. LUKASZ CHARLES PHD [facility] [address] [facility], [address] [place] [address] documented in this encount er Plan of Treatment + + +--------+ + + | Name | Type | Priori | Associated Diagnoses | Order Schedule | | | | ty | | | + + +--------+ + + | [place] PSYCHOTHERPY, | Procedures | Routin | Major [...]
--- OUTSIDE RECORDS SUMMARY | ~2019-12-13 | XMS | Encounter Summary ---
Demographics + + + | Address | [address] | | | [place] [address] | + + + | Home Phone [...] Team Providers + +------+ + | Care Workers' Compensation Commissioner Name | Role | Phone | [...] | ANP | | | | | [facility] | | | | | | [address] | | | | | | Mailcode: CH15P | | | | | | [facility] | | | | | | and Healing, | | | | | | Building | | | | | | Floor [place], [place] | | | | | | [address] | | | | | | [phone] | | | +--------+ + + + [...]
--- OUTSIDE RECORDS SUMMARY | ~2019-12-13 | XMS | Encounter Summary ---
Demographics + + + | Address | [address] | | | [place] [address] | + + + | Home Phone [...] Providers + +------+ + | Care Pool Player Name | Role | Phone | [...] | | | [facility] | [place], [place] | | | | | [address] | [address] | | | | | [address] | [phone] | | | | | Physician's Sharmila | | | | | | Physician's | | | | | | [place], | | | | | | [place] [address] | | | | | | [phone] | | | +--------+---------+ + + + [...] + documented in this encounter Progress Notes Bteo Meeks - 05/27/2007 4:03 PM PST Component [...]
--- OUTSIDE RECORDS SUMMARY | ~2019-12-13 | XMS | Encounter Summary ---
Demographics + + + | Address | [address] | | | [place] [address] | + + + | Home Phone [...] + | 09/14/ | Telephone | [facility] | Alanis, | Chest Pain | | 2019 | | MEDICINE [address] | MD [address] | | | | | [address] [place], | [address] [facility] | | | | | [place] [address] | [place] [address] | | | | | [phone] | [phone] | | | | | | | [...] Miscellaneous Notes Telephone Encounter - Teresa Mitchell, Manager Assembly - 09/15/2019 10:28 AM Emmie nt presented [...] | | | | | [place] [address] | | | | | | [phone] | | | | | | | | +--------+---------+ + + + | 12/20/ | Office | Otolaryngology | Ulysses Genao MD | | | 2019 | Visit | | [address] | | | | | | [address] | | | | | | [place] [address] | | | | | | [phone] | | | | | | | | +--------+---------+ + + + | 02/15/ | Office | Internal Medicine | Alanis, | | | 2020 | Visit | | MD [place]a | | | | | | [address] | | | | | | [place] [address] | | | | | | [phone] | | | | | | | | +--------+---------+ + + + documented as of this encounter Visit Diagnoses Not on filedocumented in this encounter"
--- OUTSIDE RECORDS SUMMARY | ~2019-12-13 | XMS | Encounter Summary ---
Demographics + + + | Address | [address] | | | [place] [address] | + + + | Home Phone [...] Team Providers + +------+ + | Care Stitch Burnisher Name | Role | Phone | + [...] | Other | | 2008 | | [place] [address] | [address] | | | | | Bethanie Mailcode: CH4S | [address] | | | | | [facility] | [place], [place] | | | | | and Healing, | [address] | | | | | [place] [address], [facility] | [phone] | | | | | Floor [place], [place] | | | | | | [address] | | | | | | [phone] | | | +--------+ + + + [...]
--- OUTSIDE RECORDS SUMMARY | ~2019-12-13 | XMS | Encounter Summary ---
Demographics + + + | Address | [address] | | | [place] [address] | + + + | Home Phone [...] Team Providers + +------+ + | Care Upper Stitcher Name | Role | Phone | [...] | | | | [place] [address] | [place] [address] | IDIOPATHIC; Lumbar | | | | [address] | [phone] | radiculopathy | | | | [phone] | | primarily right; S/P | | [...] blood sugars if you a re diabetic. tank terminal gauger risk can lead to osteoporosis which is [...] were performed by a Dr. García in [place]. The patient is unable to take NSAID's [...] visit. ALLERGIES: Allergies Allergen Reactions Amitriptyline Hcl Ejwzaqqqlk-Bqqa-Spvyjyvg Cephalexin Ciprofloxacin Clarithromycin Clindamycin Hcl Codeine Sulfate [...] no apparent deficits with short or intermediate memory. 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 Unfortunately she nelly nues to have significant [...] she is starting physical therapy again in [place]. 5. I will see the patient 2 [...] [address] | | | | | | [place] [address] | | | | | | [phone] | | | | | | | | +--------+---------+ + + + | 12/20/ | Office | Otolaryngology | Ulysses Genao MD | | | 2019 | Visit | | [address] | | | | | | [address] | | | | | | [place] [address] | | | | | | [phone] | | | | | | | | +--------+---------+ + + + | 02/15/ | Office | Internal Medicine | Alanis, | | | 2019 | Visit | | MD [place] | | | | | | [address] [place] | | | | | | [place] [address] | | | | | | [phone] | | | | | | | | +--------+---------+ + + + documented as of this encounter Results FL Sacroiliac Injection Right (02/27/2015 2:12 PM PDT) + + | Specimen | + + | | + + + + + | Narrative | Performed At | + + + | 02/27/2015 Bilateral Sacroiliac Joint Injection Clinical History: | GILDAE | | Sacroiliitis ICD-9 720.0 Belinda Meehan presents to the | [facility] | | fluoroscopy suite for fluoroscopically guided bilateral sacroiliac [facility] | | joint steroid injections as part [...] + + | Performing | Address | City[facility]State[facility] | Phone Number | | Organization | | | | + + + + + | [address] | [address] | [place] | [phone] | | [facility] | | [address] | | | - IMAGING | | [...] 720.0 Belinda Meehan presents to the | [facility] | | fluoroscopy suite for fluoroscopically guided bilateral sacroiliac [facility] | | joint steroid injections as part [...] | [address] | [place] | [phone] | | [facility] | | [address] | | | - IMAGING | | [...]
--- OUTSIDE RECORDS SUMMARY | ~2019-12-13 | XMS | Encounter Summary ---
Demographics + + + | Address | [address] | | | [place] [address] | + + + | Home [...] + +------+ + | Care Human Resources Recruiter Name | Role | Phone | [...] | Pain | Diagnoses | Emmy | [employer] | | | | Management | [...] | | | | | [facility] | [address] | Building | | | | | disease, | Phone: | [address]th Floor | | | | | bilateral | [phone] | [place], [place] | | | | | Rheumatoid | Fax: | [address] | | | | | arthritis, | [phone] | Phone: | | | | | unspecified | | [phone] | | | | | | | Fax: | | | | | Postlaminect | | [phone] | | | | | toya | [...] + | 02/05/ | Office | [facility] Comprehensive | Shalonda Garcia, | Post laminectomy | | 2017 | Visit | Pain Center at | PROOF INSPECTOR [address] | syndrome (Primary | | | | [facility] | [place], [place] | Dx); Intractable | | | | [address] | [address] | chronic migraine | | | | Mailcode: CH15P | [phone] | without aura and | | | | [place] for [facility] | | with status | | | | and Healing, | | migrainosus; | | | | | | Fibromyalgia | | | | Floor [place], [place] | | | | | | [address] | | | | | | [phone] | | | +--------+---------+ + + + [...] regarding spinal cord stimulator Shalonda Mustafa DNP, PROOF INSPECTOR-C Adult Pain Service /[facility] [place] [address] documented in this encounter Progress Notes Amie Jing - 02/05/2017 1:35 PM PDT Date: 02/05/2017 was referred for pain management consultation by Sulaiman Whitlock MD [address] [place] [address] Reason for consult: cervical radiculopathy, low back [...] patient at a pain cli [facility] in [facility], however her insurance changed and she no longer has coverage at this clinic. 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 She feels she is at the point where is not able to determine which medications are hel pful in improving her pain. She endorses incontinence symptoms. She reports there are "days I just want to " because her pain is so bad. 's treatment for this pain complaint has included: MEDICATIONS: - Gabapentin - [place] - Butran - Cymbalta - Fentanyl Patches NON-MEDICATION THERAPIES: - Physical Therapy - Exercise - Heat/Ice - Pool Therapy - Brace/Support - TENS INTERVENTIONS: - Spinal surgery x3, Laminectomy unknown level - Epidural Steroid Injections - Trigger Point Injections lives in a single family home in [place], [place]. She is not currently working , she receives disability. As a result of her pain, notes multiple changes in her life, including limiting her ability to perform routine tasks. 's goals from today's appointment include: consultation only (advice only to you and your primary care physician), counseling, drug treatment, help in coping with the pain a nd stress management. 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 Headache HTN (hypertension) Hypothyroidism 11/11/2006 IBS (irritable bowel syndrome) Internal hemorrhoid Kidney stone Major depressive disorder, recurrent episode, moderate ([facility]) 07/31/2006 Metabolic syndrome X 250.80 Metabolic syndrome X 250.80 Optic nerve hemorrhage left eye Other general symptoms Pneumonia PUD (peptic ulcer disease) RA (rheumatoid arthritis) ([facility]) Radiculitis, lumbosacral 03/03/2008 Reduced vision Scoliosis Sleep apnea Spondylosis with myelopathy, lumbar region 07/02/2006 Vertebral fracture T7,8,9 Xray T spine 2003 Past Surgical History Procedure Laterality Date Salpingo-oophorectomy Colonoscopy 03/2006 Tonsillectomy Pr d&c after delivery Pr inject trigger point, 1 or 2 Knee replacement 02/2007 Left knee Knee replacement 08/2007 right knee Lumbar fusion 05/2008, '11 & '12 L5-P4ivftjz with bone spur removals Appendectomy Cholecystectomy section [...] Hives Mainly in the legs Clindamycin Codeine Iuofsmi-Wcgoqxnpyt-Sbe-Caff Balance problems Fioricet W/Codeine [Ysfahiuiav-Gyigyczujs-Aqx-Cod] Keflex [Cephalexin] Ketorolac Unknown Morphine IM ( [facility] [...] and summary of old medical records (source: [employer]), as summarized in the body of the [...] Kathleen Riley am functioning as a medical review specialist for MEGAN Dutta DNP I have reviewed and verified the above scribed note of my visit with this patient as record ed by Kathleen Riley. Shalonda Mustafa DNP, FNP-C Adult Pain Service /[facility] [address] [place] [address] Maris Costa MA - 02/05/2017 1:35 PM [...]
--- OUTSIDE RECORDS SUMMARY | ~2019-12-13 | XMS | Encounter Summary ---
Demographics + + + | Address | [address] | | | [place] [address] | + + + | Home Phone [...] Team Providers + +------+ + | Care Bedspread Seamer Name | Role | Phone | + [...] | | Essential | | | | [place], [place] | | hypertension 401.9; | | | | [address] | | Type II or | | | | [phone] | | unspecified type | | | [...] | | | LABORATORY | | | [place] | | | SERVICES, | | | [...] | + + + + + | [facility] | [address] | [place] [address] | | | SERVICES, CORE | [place] [...] + + + + + | [facility] | [address] | [place] [address] | | | SERVICES, CORE | KE[place]AN [...] | | If you are | | [place] | | | | screening for diabetes: [...] + | [facility] | [address] | [place] [address] | | | [place] | | | [...] [facility] | [address] | [place] [address] | | | SERVICES, SPECIAL | PARK [...] + + + + | [facility] | [address] | [place] [address] | | | SERVICES, CORE | [place] [...] [facility] | [address] | [place] [address] | | | SERVICES, SPECIAL | [place]AN [...] by | | | | | | [address] | | | | | | Abdiaziz Morales, [facility] | | | | | | [address] | | | | | | [phone].Campalyst. | | | | | | Get [...] [facility] | [address] | [place], [place] | | | [facility] | | [address] | | + + + + + [...] | + + + + + | [facility] | [address] | [place] [address] | | | SERVICES, SPECIAL | KE[place]AN [...] + | [facility] | [address] | [place] [address] | | | [place] | | | | + + + [...]
--- OUTSIDE RECORDS SUMMARY | ~2019-12-13 | XMS | Encounter Summary ---
Demographics + + + | Address | [address] | | | [place] [address] | + + + | Home Phone [...] Providers + +------+ + | Care Business Support Assistant Name | Role | Phone [...] + + | 10/05/ | Telephone | [facility] | Aalnis, | Appointment Question | | 2018 | | [address] | MD [place] | | | | | [place], | [address] [place] | | | | | [place] [address] | [place] [address] | | | | | [phone] | [phone] | | | | | | | [...] - 10/08/2018 1:56 PM PDTPatient notified of co mments elephone Dionisio canas - Petrona Thapa MD - 10/08/2018 7:25 AM PDTYes, typically [...] be given. Please advise elephone Encounter - Adriana Cantor - 10/05/2018 2:59 PM PDTPatient called asking to speak with the nurse. Patient stated she has a few questions about her upcoming appointment for her in fusion for her osteoporosis. Please call patient to advise, . Electronically si gned by Adriana Leonardo Cantor at 10/05/2018 3:00 PM PDTdocumented in [...] | | | | | [place] [address] | | | | | | [phone] | | | | | | | | +--------+---------+ + + + | 12/20/ | Office | Otolaryngology | Ulysses Genao MD | | 2019 | Visit | | [address] | | | | | | [address] | | | | | | [place] [address] | | | | | | [phone] | | | | | | | | +--------+---------+ + + + | 02/15/ | Office | Internal Medicine | Alanis, | | | 2019 | Visit | | MD [place] | | | | | | [address] [place] | | | | | | [place] [address] | | | | | | [phone] | | | | | | | | +--------+---------+ + + + documented as of this encounter Visit Diagnoses Not on filedocumented in this encounter"
--- OUTSIDE RECORDS SUMMARY | ~2019-12-13 | XMS | Encounter Summary ---
Demographics + + + | Address | [address] | | | [place] [address] | + + + | Home Phone [...] Providers + +------+ + | Care Juvenile Justice Specialist Name | Role | Phone | [...] | | | | [facility] Physician's | [place], [place] | | | | | [address] | [address] | | | | | [place], [place] | [phone] | | | | | [address] | | | | | | [phone] | | | +--------+ + + + [...] + + + | [facility] | [address] | [place] [address] | | | LABORATORY | | | [...] DEPARTMENT OF | [address] | [place] [address] | | | PATHOLOGY | [address] | | | + + + + + | [facility] | [address] | [place] [address] | | | PATHOLOGY | [address] | | | + + + + + documented in this encounter Visit Diagnoses Not on filedocumented in this encounter"
--- OUTSIDE RECORDS SUMMARY | ~2019-12-13 | XMS | Encounter Summary ---
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 2. May continue with [place] NTE 4 per day as prescribed 3. [...] Belinda Meehan is a 46 y.o. female [facility] Pain Center Return Visit Chief Complaint: Chief Complaint Patient presents with Pain History of Present Illness: Belinda Meehan is a 46 y.o. year-old female with a history of chronic pain due to degenerative spine disease, abdominal pain, fibromyalgia and right rot ator cuff injury. Belinda reports pain in her left knee and having seen Dr. Morales in orth opedics at [facility], she reports that surgery is not [...] swelling has resolved. Belinda has been using Henrico 10/325 an average of 5 tablets per day. 1 tablet has an effecti ve duration of 5 hours "pain breaks through at about 4 hours", she reports taking a Henrico ev eduardo 5 hours. She denies any [...] Collection Time Resulting Agency 07/30/2006 4:00 PM [facility] DEPARTMENT OF PATHOLOGY Component Results Component [...] previous 6 days. 2. May continue with [place] NTE 4 per day as prescribed 3. Continue with PT and Psychology as scheduled. 4. Continue with Trileptal 150mg 1 1/2 tablet twice a day 5. Follow up to review medications on 09/09/06 and call with any concerns or questions. DELFINA MOLINA [facility] Comprehensive Pain Center Mail code CH 4P [facility] and [address] [address] Ailyn Foster - 08/27/19 9:09 [...] today? yes [facility] of Treatment Not on [...]
--- OUTSIDE RECORDS SUMMARY | ~2019-12-13 | XMS | Encounter Summary ---
Demographics + + + | Address | [address] | | | [place] [address] | + + + | Home Phone [...] Team Providers + +------+ + | Care Doughnut Icer Name | Role | Phone | + +------+ + | Petrona Thapa | PCP | | | MD | | | + +------+ + Reason for Visit + +--------+ + | Reason | Onset | Comments | | | Date | | + +--------+ + | Medication Refill | 04/09/ | | | | 2017 | | + +--------+ + Encounter Details +--------+--------+ + + + | Date | Type | Department | Care Team | Description | +--------+--------+ + + + | 04/09/ | Refill | [facility] | Alanis, | Medication Refill | | 2017 | | MEDICINE [place] | MD [place] | | | | | [address] | [address] [facility] | | | | | [place] | [place] [address] | | | | | [address] | [phone] | | | | | [phone] | | | +--------+--------+ + + + [...] Telephone Encounter - Maggie Montoya LPN - 04/12/2018 3:19 PM PDTPatient notified of rx wi ll be mailed out. eleph one Encounter - Adriana Cantor - 04/12/2018 2:11 PM PDTPatient [facility] Patient was asked what medical supply she would like it faxed to and she stated to just mail it to her. Please call patient to advise, . elephone Encounter - Maggie Montoya LPN - 04/12/2018 2:02 PM PDTLeft message for patient to call back with the name of the medical supply to fa x rx to elephone Encoun Petrona Parmar MD - 04/12/2018 1:47 PM PDTRx printed. Will have to see though if insurance covers it. Electronically signed by Petrona Thapa MD at 1:47 PM PDTTelephone Encounter - Juliane Elena - 04/09/2018 4:19 PM PDTPatient laurita bullard stating to please put request on new matters, stated she has bed sores, please advise. documented in this encounte r Plan of [...] [place] | | | | | | [place] [address] | | | | | | [phone] | | | | | | | | +--------+---------+ + + + | 12/20/ | Office | Otolaryngology | Ulysses Genao MD | | 2019 | Visit | | [address] | | | | | | [address] | | | | | | [place] [address] | | | | | | [phone] | | | | | | | | +--------+---------+ + + + | 02/15/ | Office | Internal Medicine | Alanis, | | | 2019 | Visit | | MD Petrona | | | | | | [address] [place] | | | | | | [place] [address] | | | | | | [phone] | | | | | | | | +--------+---------+ + + + documented as of this encounter Visit Diagnoses Not on filedocumented in this encounter"
--- OUTSIDE RECORDS SUMMARY | ~2019-12-13 | XMS | Encounter Summary ---
Demographics + + + | Address | [address] | | | [place] [address] | + + + | Home Phone [...] + +------+ + | Care Certified Medical Aide Name | Role | Phone | [...] [facility] | [place], [place] | | | | | and [place], | [address] | | | | | [facility] , | [phone] | | | | | Floor [place], [place] | | | | | | [address] | | | | | | [phone] | | | +--------+ + + + [...]
--- OUTSIDE RECORDS SUMMARY | ~2019-12-13 | XMS | Encounter Summary ---
Demographics + + + | Address | [address] | | | [place] [address] | + + + | Home Phone [...] Team Providers + +------+ + | Care Ballast Cleaning Machine Operator Name | Role | Phone [...] | | 2006 | | [facility] at [facility] | MD Darrion,PhD [address] | | | | for Health and | [address] | | | | | Healing [address] | [place], [place] | | | | | Ave Mailcode: | [address] | | | | | CH[facility] | [phone] | | | | | Health and Healing, | | | | | | [facility] | | | | | | [place], [place] | | | | | | [address] | | | | | | [phone] | | | +--------+ + + + [...]
--- OUTSIDE RECORDS SUMMARY | ~2019-12-13 | XMS | Encounter Summary ---
Demographics + + + | Address | [address] | | | [place] [address] | + + + | Home Phone [...] Team Providers + +------+ + | Care Sys Dir Name | Role | Phone | + [...] [id number] | | | | | | [place], [place] | | | | | | [address] | | | | | | [phone] | | | +--------+--------+ + + + [...]
--- OUTSIDE RECORDS SUMMARY | ~2019-12-13 | XMS | Encounter Summary ---
Demographics + + + | Address | [address] | | | [place] [address] | + + + | Home Phone [...] | | | Metabolism | bypass | [address] | [address] | | | | | Hypovitamino | [address], | Ave | | | | | sis D [address] | [address] | [place], [place] | | | | | nutritional | [place], [place] | [address] | | | | | deficiency | [address] | Phone: | | | | | Other | Phone: | [phone] | | | | | protein-jose manuel | [phone] | Fax: | | | | | nick | Fax: | [phone] | | | | | malnutrition | [phone] | | | | | | Weight | | | | | | | gain | | | | | | | Procedures | | | | | | | CONSULT TO | | | | | | | ENDO | | | | | | | [address] | | | | | | | [address] | | | +--------+--------+ + + + [...] | | | [facility] | [place], [place] | Metabolic syndrome X | | | | [address] | [address] | 250.80; Essential | | | | [address] | [phone] | hypertension 401.9; | | | | [facility] | | IGT (impaired | | | | Physician's | | glucose tolerance) | | | | Pavilion [place], | | | | | | [place] [address] | | | | | | [phone] | | | +--------+---------+ + + + [...] month in the pain center her at [facility], so she is hoping to [...] Hives Mainly in the legs Clindamycin Codeine Nitoibn-Zcbtirapmm-Xbq-Caff Balance problems Fioricet W/Codeine (Iepqlnwnbu-Thhthxlrxq-Cro-Cod) Keflex (Cephalexin) Morphine IM ( only in [facility]) made gut pain worse 08/27/06: Trial [...] U/L 41 ANION GAP 8 VITAMIN B12, [id number] pg/ml >2000 (H) HEMOGLOBIN A1C <=5.6 % [...] SERUM 15.0-85.0 pg/ml 222.9 (H) VITAMIN B12, [id number] pg/ml > 2000 HEMOGLOBIN A1C <=5.6 % [...]
--- OUTSIDE RECORDS SUMMARY | ~2019-12-13 | XMS | Encounter Summary ---
Demographics + + + | Address | [address] | | | [place] [address] | + + + | Home Phone [...] Providers + +------+ + | Care Filament Welder Name | Role | Phone | + +------+ + | Pedrito Gutierrez MD | PCP | | + +------+ + Encounter Details +--------+---------+ + + + | Date | Type | Department | Care Team | Description | +--------+---------+ + + + | 11/24/ | Office | Comprehensive Pain | Nathalia Arora | Left Knee Pain; | | 2006 | Visit | [facility] | [address] | Spondylosis with | | | | [address] | Clementina [address] [place], | Myelopathy, Lumbar | | | | Mychal K[place] Mailcode: | [place] [address] | Region; Herniated | | | | [facility] [place] for | | Lumbar | | | | [facility], | | Intervertebral Disc | | | | | | L4-5; Fibromyalgia | | | | Floor [place], [place] | | syndrome 729.1 | | | | [address] | | | | | | [phone] | | | +--------+---------+ + + + [...] December 02, 2006 Patient: Belinda J Shefali, [id number], 1960 I agree with the proposed Physical Therapy Treatment Plan. Provider: DELFINA MOLINA ANP Nathalia Garrett - 007 11:16 AM PDT Physical Therapy Medicare Progress Note Date: 11/27/2006 Belinda Barnes Shefali [id number]. 1960 Start of Care: 11/24/2006 Referring Provider: [...] the free margin and undersurface of the collection card clerk horn of the medial meniscus suspicious for [...] gait using bilateral lofstrand crutches Patient's goals: fpc: Ambulation with single based cane Treatment: Patient [...] are to increased strength and endurance . penitentiary goals: Improve gait so patient can ambulate with single based cane. Plan: Patient will return for f/u visit in 2 weeks and at that time will progress in core, hip, and knee strengthening regime. Treatment began: 1100 Treatment ended: 1200 Nathalia Arora, Physical Therapist License #[id number] documented in this encoun ter Plan of Treatment + + +--------+ + + | Name | Type | Priori | Associated Diagnoses | Order Schedule | | | | ty | | | + + +--------+ + + | [place] [facility] | Procedures | Routin | [...]
--- OUTSIDE RECORDS SUMMARY | ~2019-12-13 | XMS | Encounter Summary ---
Demographics + + + | Address | [address] | | | [place] [address] | + + + | Home Phone [...] Team Providers + +------+ + | Care Returns Clerk Name | Role | Phone | + +------+ + | Petrona Thapa | PCP | | | MD | | | + +------+ + Reason for Visit + +--------+ + | Reason | Onset | Comments | | | Date | | + +--------+ + | Medication Refill | 08/16/ | | | | 2020 | | + +--------+ + Encounter Details +--------+--------+ + + + | Date | Type | Department | Care Team | Description | +--------+--------+ + + + | 08/16/ | Refill | [facility] [place] [facility] | Alanis, | Medication Refill | | 2019 | | MEDICINE [address] | MD Petrona | | | | | [place], | [address] | | | | | [place] [address] | [place] [address] | | | | | [phone] | [phone] | | | | | | | [...] Telephone Encounter - Maggie Montoya LPN - 08/17/2019 10:29 AM PSTRex sentElectronically si gned by Maggie Montoya LPN at 08/17/2019 10:29 AM PSTTelephone Encounter - Rebekah Maldonado - 08/17/2019 9:03 AM PSTMedication: albuterol inhaler Strength: 90mcg Directions: as needed Amount of medication remaining: none Quantity: ? Pharmacy: [facility]Mail/Piece [facility]/Fax: fax Date of Last Refill:unknown Date of Last Visit: 08/15/19 Date of Next Visit: 11/15/19 documented in this encounter Plan of Treatment [...] | | | | | [place] [address] | | | | | | [phone] | | | | | | | | +--------+---------+ + + + | 12/20/ | Office | Otolaryngology | Ulysses Genao MD | | | 2019 | Visit | | [address] | | | | | | [address] [place] | | | | | | [place] [address] | | | | | | [phone] | | | | | | | | +--------+---------+ + + + | 02/15/ | Office | Internal Medicine | Alanis, | | | 2019 | Visit | | MD Petrona | | | | | | [address] [place] | | | | | | [place] [address] | | | | | | [phone] | | | | | | | | +--------+---------+ + + + documented as of this encounter Visit Diagnoses Not on filedocumented in this encounter"
--- OUTSIDE RECORDS SUMMARY | ~2019-12-13 | XMS | Encounter Summary ---
Demographics + + + | Address | [address] | | | [place] [address] | + + + | Home Phone [...] Team Providers + +------+ + | Care Small Electric Engine Technician Name | Role | Phone | [...] + | 05/25/ | Refill | [facility] | Alanis, | Medication Refill | | 2016 | | MEDICINE [address] | MD Petrona | | | | | [place], | [address] [facility] | | | | | [place] [address] | [place] [address] | | | | | [phone] | [phone] | | | | | | | [...] | | 2019 | Visit | | [facility] [address] | | | | | | [address] [place] | | | | | | [place] [address] | | | | | | [phone] | | | | | | | | +--------+---------+ + + + | 12/20/ | Office | Otolaryngology | Ulysses Genao MD | | | 2019 | Visit | | [address] | | | | | | [address] [place] | | | | | | [place] [address] | | | | | | [phone] | | | | | | | | +--------+---------+ + + + | 02/15/ | Office | Internal Medicine | Alanis, | | | 2019 | Visit | | MD Petrona | | | | | | [address] [place] | | | | | | [place] [address] | | | | | | [phone] | | | | | | | | +--------+---------+ + + + documented as of this encounter Visit Diagnoses Not on filedocumented in this encounter"
--- OUTSIDE RECORDS SUMMARY | ~2019-12-13 | XMS | Encounter Summary ---
Demographics + + + | Address | [address] | | | [place] [address] | + + + | Home Phone [...] Providers + +------+ + | Care Sales Advisor Name | Role | Phone [...] | PENDING | MD [address] | [place], | | | | | | [address] | [place] [address] | | | | | | [place], | Phone: | | | | | | [place] | [phone] | | | | | | [address] | Fax: | | | | | | Phone: | [phone] | | | | | | [phone] | | | | | | | Fax: | | | | | | | [phone] | | +--------+ + + + + + Encounter Details +--------+---------+ + + + | Date | Type | Department | Care Team | Description | +--------+---------+ + + + | 12/30/ | Office | [facility] | Ulysses Genao MD | Benign paroxysmal | | 2018 | Visit | OTOLARYNGOLOGY [address] | [address] | positional vertigo, | | | | [address] | [address] [place] | unspecified | | | | [place] | [place] [address] | laterality (Primary | | | | [address] | [phone] | Dx); Dysfunction of | | | | [phone] | | left eustachian tube | +--------+---------+ [...] negative nichole ft to it. Her speech sales receptionist threshold is 20 dB in the [...] | | | | | [place] [address] | | | | | | [phone] | | | | | | | | +--------+---------+ + + + | 12/20/ | Office | Otolaryngology | Ulysses Genao MD | | | 2019 | Visit | | [address] | | | | | | [address] [place] | | | | | | [place] [address] | | | | | | [phone] | | | | | | | | +--------+---------+ + + + | 02/15/ | Office | Internal Medicine | Alanis, | | | 2019 | Visit | | MD Petrona | | | | | | [address] [place] | | | | | | [place] [address] | | | | | | [phone] | | | | | | | [...]
--- OUTSIDE RECORDS SUMMARY | ~2019-12-13 | XMS | Encounter Summary ---
Demographics + + + | Address | [address] | | | [place] [address] | + + + | Home Phone [...] Providers + +------+ + | Care Loss Control Representative Name | Role | Phone | + +------+ + | Petrona Thapa | PCP | | | MD | | | + +------+ + Reason for Visit +--------+--------+ + | Reason | Onset | Comments | | | Date | | +--------+--------+ + | LABS | 10/11/ | | | | 2018 | | +--------+--------+ + Encounter Details +--------+ + + + + | Date | Type | Department | Care Team | Description | +--------+ + + + + | 10/11/ | Telephone | [facility] | Alanis, | LABS | | 2018 | | MEDICINE [address] | MD Petrona | | | | | [place], | [address] [facility] | | | | | [place] [address] | [place] [address] | | | | | [phone] | [phone] | | | | | | | [...] Telephone Encounter - Maggie Montoya LPN - 10/11/2018 3:38 PM PDTPatient notified labs ord ered and faxed to [facility] 3:3 8 PM PDTTelephone Encounter - Adriana Cantor - 10/11/2018 12:16 PM PDTPatient called china worley checking on the status of her earlier message. Please call patient to advise.Electronical ly signed by Adriana Cantor at 10/11/2018 12:17 PM PDTTelephone Encounter - Bob Melgar - 10/11/2018 10:42 AM PDTPatient called states she's needs to know if she needs to get labs done before procedure 10/14/2018. & if patient is needing labs please sent orders to [facility] in [place]. Veto lentz signed by Bob Tinoco at 10/11/2018 10:46 AM PDTdocumented in this encounter Plan [...] | | | | | | [place] [address] | | | | | | [phone] | | | | | | | | +--------+---------+ + + + | 12/20/ | Office | Otolaryngology | Ulysses Genao MD | | | 2019 | Visit | | [address] | | | | | | [address] [place] | | | | | | [place] [address] | | | | | | [phone] | | | | | | | | +--------+---------+ + + + | 02/15/ | Office | Internal Medicine | Alanis, | | | 2019 | Visit | | MD Petrona | | | | | | [address] [place] | | | | | | [place] [address] | | | | | | [phone] | | | | | | | | +--------+---------+ + + + documented as of this encounter Visit Diagnoses + + | Diagnosis | + + | Osteoporosis, unspecified osteoporosis type, unspecified pathological fracture | | presence - Primary | + + documented in this encounter"
--- OUTSIDE RECORDS SUMMARY | ~2019-12-13 | XMS | Encounter Summary ---
Demographics + + + | Address | [address] | | | [place] [address] | + + + | Home Phone [...] Providers + +------+ + | Care Machine Design Engineer Name | Role | Phone [...] | | | | | Encounter | [place], [place] | [place] | | | | | for | [address] | [address] | | | | | long-term | | Phone: | | | | | (current) | | [phone] | | | | | use of other | | Fax: | | | | | medications | | [phone] | | | | | LBP (low [...] 06/23/ | Office | [facility] at [facility] | Lukasz Charles, | Major depressive | | 2013 | Visit | [address] | PhD [address] | disorder, recurrent | | | | Mailcode: CH15[facility] | [place], [place] | episode, moderate | | | | [place] [facility] | [address] | ([facility]) (Primary Dx); | | | | and Healing, | [phone] | LBP (low back pain); | | | | | | Adjustment disorder | | | | Floor [place], [place] | | with anxiety | | | | [address] | | | | | | [phone] | | | +--------+---------+ + + + [...] an appropriate candidate for a stimulator. Diagnosis: Poth I: 1. (296.32) Major depressive disorder, recurrent, moderate. 2. (309.24) Adjustment disorder with anxiety. Poth II: Deferred Poth III: abdominal pain, migraine headache, low back pain, fibromyalgia. Poth IV: low finances Poth V: GAF 55-60 Plan: return in 1 month. Check mood, pain, activity, stress management. Ask about spinal cord stimulator, any changes at home. Continue cognitive/behavioral therapy. Total time spent with patient was approximately 45 minutes. LUKASZ CHARLES PHD [facility] [address] [place] [address], [address] [place] [address] documented in this en counter Plan of [...]
--- OUTSIDE RECORDS SUMMARY | ~2019-12-13 | XMS | Encounter Summary ---
Demographics + + + | Address | [address] | | | [place] [address] | + + + | Home Phone [...] Team Providers + +------+ + | Care Private Duty Rn Name | Role | Phone | + +------+ + | Pedrito Gutierrez MD | PCP | | + +------+ + Encounter Details +--------+---------+ + + + | Date | Type | Department | Care Team | Description | +--------+---------+ + + + | 07/30/ | Office | Comprehensive Pain | Nathalia Arora | Cervical Spondylosis | | 2006 | Visit | [facility] | [address] | without Myelopathy | | | | [address] | [place] W[place], | (Primary Dx); | | | | [address]chal [place] Mailcode: | [place] [address] | Spondylosis with | | | | [facility] | | Myelopathy, Lumbar | | | | [facility]aling, | | Region; Herniated | | | | Building | | Lumbar | | | | Floor [place], [place] | | Intervertebral Disc; | | | | [address] | | Unspecified Myalgia | | | | [phone] | | and Myositis | +--------+---------+ + [...] might be different from lesli rodriguez original. Physical Therapy Medicare Progress Note Date: 07/30/2006 Belinda Barnes Shefali [id number]. 1960 Start of Care: 06/23/2006 Referring Provider: [...] her today. Patient has multiple appts. At [facility] today, including a f/u regarding her connelly [...] [place] THERAPEUTIC | Procedures | Routin | Cervical [...]
--- OUTSIDE RECORDS SUMMARY | ~2019-12-13 | XMS | Encounter Summary ---
Demographics + + + | Address | [address] | | | [place] [address] | + + + | Home Phone [...] Providers + +------+ + | Care Construction Secretary Name | Role | Phone | [...] | 01/12/ | Refill | [facility] [place] [facility] | Alanis, | Medication Refill | | 2017 | | MEDICINE [address] | MD Petrona | | | | | [place], | [address] | | | | | [place] [address] | [place] [address] | | | | | [phone] | [phone] | | | | | | | [...] | | | | | [place] [address] | | | | | | [phone] | | | | | | | | +--------+---------+ + + + | 12/20/ | Office | Otolaryngology | Ulysses Genao MD | | | 2019 | Visit | | [address] | | | | | | [address] [place] | | | | | | [place] [address] | | | | | | [phone] | | | | | | | | +--------+---------+ + + + | 02/15/ | Office | Internal Medicine | Alanis, | | | 2019 | Visit | | MD Petrona | | | | | | [address] [place] | | | | | | [place] [address] | | | | | | [phone] | | | | | | | | +--------+---------+ + + + documented as of this encounter Visit Diagnoses Not on filedocumented in this encounter"
--- OUTSIDE RECORDS SUMMARY | ~2019-12-13 | XMS | Encounter Summary ---
Demographics + + + | Address | [address] | | | [place] [address] | + + + | Home Phone [...] Providers + +------+ + | Care Lactation Specialist Name | Role | Phone | [...] Pavilion | | | | | | [place], [place] | | | | | | [address] | | | | | | [phone] | | | +--------+ + + + [...]
--- OUTSIDE RECORDS SUMMARY | ~2019-12-13 | XMS | Encounter Summary ---
Demographics + + + | Address | [address] | | | [place] [address] | + + + | Home Phone [...] Team Providers + +------+ + | Care Cottage Cheese Maker Name | Role | Phone | [...] | | | | [address] Physician's | [place], [place] | | | | | [address] | [address] | | | | | [place], [place] | [phone] | | | | | [address] | | | | | | [phone] | | | +--------+ + + + [...]
--- OUTSIDE RECORDS SUMMARY | ~2019-12-13 | XMS | Encounter Summary ---
Demographics + + + | Address | [address] | | | [place] [address] [...] Team Providers + +------+ + | Care Cone Examiner Name | Role | Phone | [...] as of this encounter Progress Notes Interface, Ems Coordinator In - 01/11/2005 7:39 PM PDT [...] 3-6 months time. She is coming from [place] so this can be scheduled on the same day of her physician visit. General surgery can schedule this. 5. Indar's business card with contact information for questions. Svetlana Maki R.D., LKyrie. SR/y39 P [phone] cc: documente d in this encounter Plan of Treatment Not on filedocumented as of this encounter Visit Diagnoses Not on filedocumented in this encounter"
--- OUTSIDE RECORDS SUMMARY | ~2019-12-13 | XMS | Encounter Summary ---
Demographics + + + | Address | [address] | | | [place] [address] | + + + | Home Phone [...] Providers + +------+ + | Care Journeyman Tool And Die Maker Name | Role | Phone | [...] | | | [facility] | [place], [place] | | | | | [address] | [address] | | | | | [address] | [phone] | | | | | [facility] | | | | | | Physician's | | | | | | Pavilion [place], | | | | | | [place] [address] | | | | | | [phone] | | | +--------+ + + + [...]
--- OUTSIDE RECORDS SUMMARY | ~2019-12-13 | XMS | Encounter Summary ---
Demographics + + + | Address | [address] | | | [place] [address] | + + + | Home Phone [...] Providers + +------+ + | Care Bean Roaster Name | Role | Phone | [...]
--- OUTSIDE RECORDS SUMMARY | ~2019-12-13 | XMS | Encounter Summary ---
Demographics + + + | Address | [address] | | | [place] [address] | + + + | Home Phone [...] Providers + +------+ + | Care Hearing Therapy Teacher Name | Role | Phone [...] as of this encounter Progress Notes Interface, Bowl Turner In - 01/12/2005 6:46 AM [facility] Date: 11/27/2003 Clinic: Surgery Clinic Subjective: This patient of Dr. Chris Padgett walks into clinic today to discuss her laparoscopic incisions and a lesion on her lower back. She was discharged from [facility] approximately 36 hours ago following a [...] discharge and would like to proceed to [place], where her home is. She agrees to [...] additional questions. Liliya Kirkpatrick. NELLY / SHARIF [id number] / [id number] / [id number] / [id number] Tdocumented in this encounter Plan of Treatment Not on filedocumented as of this encounter Visit Diagnoses Not on filedocumented in this encounter"
--- OUTSIDE RECORDS SUMMARY | ~2019-12-13 | XMS | Encounter Summary ---
Demographics + + + | Address | [address] | | | [place] [address] | + + + | Home Phone [...] Providers + +------+ + | Care Curtain Inspector Name | Role | Phone | + +------+ + | Pedrito Gutierrez MD | PCP | | + +------+ + Encounter Details +--------+ + + + + | Date | Type | Department | Care Team | Description | +--------+ + + + + | 08/22/ | Hospital | Radiology/Imaging | | | | 2008 | Encounter | Lab at [facility] [address] | | | | | | [place] Mailcode: | | | | | | [facility] | | | | | | Health and Healing, | | | | | | [place] [address], | | | | | | Floor [place], [place] | | | | | | [address] | | | | | | [phone] | | | +--------+ + + + [...]
--- OUTSIDE RECORDS SUMMARY | ~2019-12-13 | XMS | Encounter Summary ---
Demographics + + + | Address | [address] | | | [place] [address] | + + + | Home Phone [...] Providers + +------+ + | Care Heel Sander Name | Role | Phone | [...] + + | 09/14/ | Clinical | [facility] | Alanis, | B12 deficiency | | 2019 | Support | MEDICINE [address] [place] [address] | MD Petrona | | | | | [place], | [address] [place] [address] | | | | | [place] [address] | [place] [address] | | | | | [phone] | [phone] | | | | | | | [...] as of this encounter Progress Teresa Tolbert, Machine Adjuster Leader Case Trim - 09/15/2019 10:15 AM PDTFormatting of this [...] | | | | | [place] [address] | | | | | | [phone] | | | | | | | | +--------+---------+ + + + | 12/20/ | Office | Otolaryngology | Ulysses Genao MD | | | 2019 | Visit | | [address] | | | | | | [address] [place] | | | | | | [place], [place] [address] | | | | | | [phone] | | | | | | | | +--------+---------+ + + + | 02/15/ | Office | Internal Medicine | Alanis, | | | 2019 | Visit | | MD [place] | | | | | | [address] [place] | | | | | | [place] [address] | | | | | | [phone] | | | | | | | [...]
--- OUTSIDE RECORDS SUMMARY | ~2019-12-13 | XMS | Encounter Summary ---
Demographics + + + | Address | [address] | | | [place] [address] | + + + | Home Phone [...] Team Providers + +------+ + | Care Electrode Turner And Finisher Name | Role | Phone | [...] Rd | | | | | | [place], [place] | | | | | | [address] | | | +--------+ + + + [...]
--- OUTSIDE RECORDS SUMMARY | ~2019-12-13 | XMS | Encounter Summary ---
Demographics + + + | Address | [address] | | | [place] [address] | + + + | Home Phone [...] Team Providers + +------+ + | Care Bark Fitter Name | Role | Phone | [...] | | | Metabolism | bypass | [address] | | | | | Hypovitamino | [address], | Ave | | | | | sis D B12 | [address] | [place], [place] | | | | | nutritional | [place] | [address] | | | | | deficiency | [address] | Phone: | | | | | Other | Phone: | [phone] | | | | | protein-jose manuel | [phone] | Fax: | | | | | nick | Fax: | [phone] | | | | | malnutrition | [phone] | | | | | | Weight | | | | | | | gain | | | | | | | Procedures | | | | | | | CONSULT TO | | | | | | | ENDO | | | | | | | [address] | | | | | | | [address] | | | +--------+--------+ + + + [...] | | | [facility] | [place], [place] | Dx); Hypothyroidism; | | | | [address] | [address] | Essential | | | | [address] | [phone] | hypertension 401.9; | | | | [facility] | | Fibromyalgia | | | | Physician's | | syndrome 729.1 | | | | Pavilion [place], | | | | | | [place] [address] | | | | | | [phone] | | | +--------+---------+ + + + [...] Hives Mainly in the legs Clindamycin Codeine Suvigpt-Mlfhrcnlgr-Vil-Caff Balance problems Fioricet W/Codeine (Poouynnuuw-Pjiglxxtde-Aqh-Cod) Keflex (Cephalexin) Morphine IM ( only in [facility]) made gut pain worse 08/27/06: Trial [...] U/L 41 ANION GAP 8 VITAMIN B12, [id number] pg/ml >2000 (H) HEMOGLOBIN A1C <=5.6 % [...] SERUM 15.0-85.0 pg/ml 222.9 (H) VITAMIN B12, [id number] pg/ml > 2000 HEMOGLOBIN A1C <=5.6 % [...]
--- OUTSIDE RECORDS SUMMARY | ~2019-12-13 | XMS | Encounter Summary ---
Demographics + + + | Address | [address] | | | [place] [address] | + + + | Home Phone [...] Providers + +------+ + | Care Furniture Refinisher Name | Role | Phone | + [...] | | sciatica | [address] | [place] [address] | | | | | Generalized | [place], | Phone: | | | | | osteoarthrit | [place] | [phone] | | | | | is | [address] | Fax: | | | | | | Phone: | [phone] | | | | | | [phone] | | | | | | | Fax: | | | | | | | [phone] | | +--------+ + + + + [...] | | | [place], | [address] [facility] | | | | | [place] [address] | [place] [address] | | | | | [phone] | [phone] | | | | | | | [...] Montoya LPN - 06/19/2017 5:06 PM PSTPatient notifiedElectroni mary carmen signed by Maggie Montoya LPN at 06/19/2017 5:06 PM PSTTelephone Encounter - John Giordano MD - 06/17/2017 11:57 AM PSTReferral sent. ddendum Note - Rohan Desai MD - 06/17/2017 11:57 AM PST Addended by: JHON DESAI on: 06/17/2017 11:5 7 Modules accepted: Orders elepho ne Encounter - Maggie Montoya LPN - 06/17/2017 9:23 AM PSTI spoke to patient yesterday and wanted to give me some good news, she found out that the her previous pain clinic in [facility] on. [place], that managed her pain was [...] like to be referred to. . / [phone]. elephone Encounter - John Rapp MD - 06/16/2017 7:05 PM PSTPlease let her know diarrhea is a co mmon reaction to stopping or lowering opiate doses. Sxs usually get better after 1-2 weeks. Imodium OTC prn can help. Electronically signed by John Desai MD at 018 7:06 PM PSTTelephone Encounter - Astrid Grant - 06/16/2017 9:32 AM PSTMelissa called regarding her weakness and this message. She stated she can hardly stand she is so weak. Please advise. [phone] signed by Astrid Grant at 06/16/2017 9:33 [...] she can eat. Please call her at [phone] to discussElectr onically signed by Shalonda Mcdermott at 06/09/2017 1:21 PM PSTTelephone Encounter - Kiana Mcdermott - 06/05/2017 2:46 PM PSTContact/Caller: melissa-self Contact Number: [phone] Provider/Nurse: Emmy Reason for Call: Melissa stated [...] [place] | | | | | | [place] [address] | | | | | | [phone] | | | | | | | | +--------+---------+ + + + | 12/20/ | Office | Otolaryngology | Ulysses Genao MD | | | 2019 | Visit | | [address] | | | | | | [address] [place] | | | | | | [place] [address] | | | | | | [phone] | | | | | | | | +--------+---------+ + + + | 02/15/ | Office | Internal Medicine | Alanis, | | | 2019 | Visit | | MD John | | | | | | [address] [place] | | | | | | [place] [address] | | | | | | [phone] | | | | | | | [...]
--- OUTSIDE RECORDS SUMMARY | ~2019-12-13 | XMS | Encounter Summary ---
Demographics + + + | Address | [address] | | | [place] [address] | + + + | Home Phone [...] Team Providers + +------+ + | Care Recapper Name | Role | Phone | + [...]
--- OUTSIDE RECORDS SUMMARY | ~2019-12-13 | XMS | Encounter Summary ---
Demographics + + + | Address | [address] | | | [place] [address] | + + + | Home Phone [...] Providers + +------+ + | Care Field Crop Farm Worker Name | Role | Phone | + +------+ + | Petrona Thapa | PCP | | | MD | | | + +------+ + Reason for Visit + +--------+ + | Reason | Onset | Comments | | | Date | | + +--------+ + | Grief/ Loss | 03/10/ | | | | 2019 | | + +--------+ + Encounter Details +--------+ + + + + | Date | Type | Department | Care Team | Description | +--------+ + + + + | 03/10/ | Telephone | [facility] INTERNAL | Alanis, | Grief/ Loss | | 2019 | | MEDICINE [address] | MD Petrona | | | | | [place], | [address] | | | | | [place] [address] | [place] [address] | | | | | [phone] | [phone] | | | | | | | [...] Telephone Encounter - Maggie Montoya LPN - 03/10/2019 3:14 PM PDTPatient notified of re commendations. elephon jennifer Encounter - Petrona Thapa MD - 03/10/2019 2:37 PM PDTShe may try to increa se the Zofran to 4 times a day from 3 times a day for the next several days to see if that h elps. elep martell Encounter - Susanna Boyce - 03/10/2019 12:59 PM PDTPatient called needing to speak to the nurse. States her friend recently and she is sick to her stomach, she is no t able to keep food down and states she feels like a wreck. Please call back to advise.Elect ronically signed by Susanna Boyce at 03/10/2019 1:02 PM PDTdocumented in this encounter Plan of [...] | | | | | [place] [address] | | | | | | [phone] | | | | | | | | +--------+---------+ + + + | 12/20/ | Office | Otolaryngology | Ulysses Genao MD | | | 2019 | Visit | | [address] | | | | | | [address] | | | | | | [place] [address] | | | | | | [phone] | | | | | | | | +--------+---------+ + + + | 02/15/ | Office | Internal Medicine | Alanis, | | | 2020 | Visit | | MD Petrona | | | | | | [address] [place] | | | | | | [place] [address] | | | | | | [phone] | | | | | | | | +--------+---------+ + + + documented as of this encounter Visit Diagnoses Not on filedocumented in this encounter"
--- OUTSIDE RECORDS SUMMARY | ~2019-12-13 | XMS | Encounter Summary ---
Demographics + + + | Address | [address] | | | [place] [address] | + + + | Home Phone [...] Providers + +------+ + | Care Fur Feeder Name | Role | Phone | [...] as of this encounter Progress Notes Interface, Filler Block Inserter Remover In - 10/30/2005 2:06 AM PDT [id number] GEOVANNI Barnes [id number] Clinic Date: 10/23/2005 Clinic: Ms. Meehan comes in today for followup of her abdominal CT. The CT is normal. We will follow her for abdominal pain. I will see her again in 3 months. If she has exacerbation, she can come earlier. I also gave her 30 tablets of 5 mg oxycodone for the pain. Chris Padgett M.D. CD / [id number] / [id number] / [id number] / Electronically signed by Chris Padgett 10-29-2005 10:10:39 AM documented i n this encounter Plan of Treatment Not on filedocumented as of this encounter Visit Diagnoses Not on filedocumented in this encounter"
--- OUTSIDE RECORDS SUMMARY | ~2019-12-13 | XMS | Encounter Summary ---
Demographics + + + | Address | [address] | | | [place] [address] | + + + | Home Phone [...] Padgett, | | | 2010 | | [place] [address] | [address] [facility] | | | | | Beth[place] Mailcode: CH4S | [facility] | | | | | Center [facility] | [place], [place] | | | | | and Healing, | [address] | | | | | [facility] | [phone] | | | | | Floor [place], [place] | | | | | | [address] | | | | | | [phone] | | | +--------+ + + + [...]
--- OUTSIDE RECORDS SUMMARY | ~2019-12-13 | XMS | Encounter Summary ---
Demographics + + + | Address | [address] | | | [place] [address] | + + + | Home Phone [...] Providers + +------+ + | Care Pit Crane Operator Name | Role | Phone [...] as of this encounter Discharge Summaries Interface, Blueprint Clerk In - 01/12/2005 10:09 AM PDT [id number] GEOVANNI Barnes Admission Date: 12/06/2004 Discharge Date: [...] her incision looked clear, dry, and intact. Hickman were in place. She had some moderate [...] Sree Carrillo M.D. Chris Padgett M.D. / [id number] / [id number] / [id number] / [id number] Electronically signed by Chris Padgett 12-31-2004 03:03:21 PM documented i n this encounter Plan of Treatment Not on filedocumented as of this encounter Visit Diagnoses Not on filedocumented in this encounter"
--- OUTSIDE RECORDS SUMMARY | ~2019-12-13 | XMS | Encounter Summary ---
Demographics + + + | Address | [address] | | | [place] [address] | + + + | Home Phone [...] Providers + +------+ + | Care Junior Systems Engineer Name | Role | Phone [...] Rd | | | | | | [place], [place] | | | | | | [address] | | | +--------+ + + + [...]
--- OUTSIDE RECORDS SUMMARY | ~2019-12-13 | XMS | Encounter Summary ---
Demographics + + + | Address | [address] | | | [place] [address] | + + + | Home Phone [...] Providers + +------+ + | Care Supervisor Felting Name | Role | Phone | + [...] [address] | | | | | [facility] | [place], [place] | | | | | [address] | [address] | | | | | [address] | [phone] | | | | | [facility] | | | | | | Physician's | | | | | | Pavilion [place], | | | | | | [place] [address] | | | | | | [phone] | | | +--------+--------+ + + + [...]
--- OUTSIDE RECORDS SUMMARY | ~2019-12-13 | XMS | Encounter Summary ---
Demographics + + + | Address | [address] | | | [place] [address] | + + + | Home Phone [...] Providers + +------+ + | Care Route Sales Delivery Driver Name | Role | Phone | + +------+ + | Pedrito Gutierrez MD | PCP | | + +------+ + Reason for Visit + + + | Reason | Comments | + + + | Bone Density Scan | | + + + Encounter Details +--------+ + + + + | Date | Type | Department | Care Team | Description | +--------+ + + + + | 08/23/ | Procedure | Kraig Turner | Marco Antonio Portillo MD | Bone Density Scan | | 2007 | | [facility] | [address] [facility] | | | | | [facility] | [address] [place], | | | | | [address] | [place] [address] | | | | | [address] | [phone] | | | | | Physician's | | | | | | Pavilion, 1st floor | | | | | | [place], [place] | | | | | | [address] | | | | | | [phone] | | | +--------+ + + + [...] this encounter Progress Angelica Hernandez - 08/26/2007 9:34 AM PDTBone density interpretation documented in th is encounter Plan of Treatment + +---------+--------+ + + | Name | Type | Priori | Associated Diagnoses | Order Schedule | | | | ty | | | + +---------+--------+ + + | AR DXA BONE | Imaging | Routin | Other Osteoporosis | Ordered: 08/26/2007 | | DENSITY,AXIAL | | e | Symptomatic | | | | | | Menopausal or Female | [...] Results for this | | | | 10:12 AM | | procedure are in the | | | | PDT | | results section. | + +--------+ + + + documented in this encounter Results BONE DENSITOMETRY (08/24/2007 10:12 AM PDT) + + + | Narrative | Performed At | + + + | | | + + + + + | Procedure Note | + + | Marco Antonio Portillo MD - 08/24/2007 10:12 AM PDT | | | + + documented in this encounter Visit Diagnoses + + | Diagnosis | + + | Other osteoporosis - Primary | + + | Symptomatic menopausal or female climacteric states | + + | Disorder of bone and cartilage, unspecified | + + documented in this encounter"
--- OUTSIDE RECORDS SUMMARY | ~2019-12-13 | XMS | Encounter Summary ---
Demographics + + + | Address | [address] | | | [place] [address] | + + + | Home Phone [...] Team Providers + +------+ + | Care Lav Crewman Name | Role | Phone | + [...] 2007 | Only | [address] | [phone] | | | | | Rd Mailcode: RPB07 | | | | | | [place], [place] | | | | | | [address] | | | | | | [phone] | | | +--------+ + + + [...] + | [facility] DEPARTMENT OF | [facility] | [place] [address] | | | PATHOLOGY | [address] | | | + + + + + | [place] DEPARTMENT OF | [facility] | [place] [address] | | | PATHOLOGY | [address] | | | + + + + + documented in this encounter Visit Diagnoses Not on filedocumented in this encounter"
--- OUTSIDE RECORDS SUMMARY | ~2019-12-13 | XMS | Encounter Summary ---
Demographics + + + | Address | [address] | | | [place] [address] | + + + | Home Phone [...] Team Providers + +------+ + | Care Electron Beam Photo Mask Maker Name | Role | Phone | [...] as of this encounter Progress Notes Interface, Advance Scout In - 08/14/2005 2:05 AM PST [id number] GEOVANNI Barnes Clinic Date: 08/06/2005 Clinic: Rheumatology [...] of antiinflammatory diet that one of the wine master in [place] has written a book about, and I have had a patient do extremely well with it in terms of her IBS and fibromyalgia pain and fatigue. Belinda is interested in this and will pursue it. 3. I have given her a lot of articles that she can pass onto her physicians in [place]. She would like somebody there to learn [...] 4 months. Caitlin Rivera M.S., F.N.P. / [id number] / [id number] / [id number] / [id number] cc: Pedrito Gutierrez M.D. [address] [place] [address] Electronically signed by Caitlin Rivera 08-13-2005 03:37:47 PM documented i n this encounter Plan of Treatment Not on filedocumented as of this encounter Visit Diagnoses Not on filedocumented in this encounter"
--- OUTSIDE RECORDS SUMMARY | ~2019-12-13 | XMS | Encounter Summary ---
Demographics + + + | Address | [address] | | | [place] [address] | + + + | Home Phone [...] Team Providers + +------+ + | Care Clay Products Machine Operator Name | Role | Phone [...] [address] | | | | | | [place], [place] | | | | | | [address] | | | | | | [phone] | | | +--------+--------+ + + + [...]
--- OUTSIDE RECORDS SUMMARY | ~2019-12-13 | XMS | Encounter Summary ---
Demographics + + + | Address | [address] | | | [place] [address] | + + + | Home Phone [...] Team Providers + +------+ + | Care Bolt Threader Name | Role | Phone | + +------+ + | Sulaiman Carrera MD | PCP | | + +------+ + Encounter Details +--------+ + + + + | Date | Type | Department | Care Team | Description | +--------+ + + + + | 08/26/ | Ancillary | Registration [id number] | | | | 2006 | Registratio | [address] | | | | | n | [place] Mailcode: RPB07 | | | | | | [place], [place] | | | | | | [address] | | | | | | [phone] | | | +--------+ + + + [...]
--- OUTSIDE RECORDS SUMMARY | ~2019-12-13 | XMS | Encounter Summary ---
Demographics + + + | Address | [address] | | | [place] [address] | + + + | Home Phone [...] Providers + +------+ + | Care Terminal Press Operator Name | Role | Phone [...] | ANP | | | | | [facility] | | | | | | [address] | | | | | | Mailcode: CH15P | | | | | | [place] | | | | | | and Healing, | | | | | | Building ,15th | | | | | | Floor [place], [place] | | | | | | [address] | | | | | | [phone] | | | +--------+ + + + [...]
--- OUTSIDE RECORDS SUMMARY | ~2019-12-13 | XMS | Encounter Summary ---
Demographics + + + | Address | [address] | | | [place] [address] | + + + | Home Phone [...] Team Providers + +------+ + | Care Behavioral Intervention Specialist Name | Role | Phone | + +------+ + | Petrona Thapa | PCP | | | MD | | | + +------+ + Reason for Visit +---------+--------+ + | Reason | Onset | Comments | | | Date | | +---------+--------+ + | Results | 02/18/ | | | | 2017 | | +---------+--------+ + Encounter Details +--------+ + + + + | Date | Type | Department | Care Team | Description | +--------+ + + + + | 02/18/ | Telephone | [facility] INTERNAL | Alanis, | Results | | 2017 | | MEDICINE [address] | MD Petrona | | | | | [place], | [address] [facility] | | | | | [place] [address] | [place] [address] | | | | | [phone] | [phone] | | | | | | | [...] Telephone Encounter - Maggie Montoya LPN - 02/18/2018 4:45 PM PDTPatient notified of MRI r esults elephone Adriana Tavarez - 02/18/2018 9:05 AM PDTPatient called wanting to speak with the salud rse. Patient stated she was in for an MRI yesterday and was calling to see if her results w ere available. Please call patient to advise, . documented [...] | | | | | [place] [address] | | | | | | [phone] | | | | | | | | +--------+---------+ + + + | 12/20/ | Office | Otolaryngology | Ulysses Genao MD | | | 2019 | Visit | | [address] | | | | | | [address] | | | | | | [place] [address] | | | | | | [phone] | | | | | | | | +--------+---------+ + + + | 02/15/ | Office | Internal Medicine | Alanis, | | | 2019 | Visit | | MD Petrona | | | | | | [address] | | | | | | [place] [address] | | | | | | [phone] | | | | | | | | +--------+---------+ + + + documented as of this encounter Visit Diagnoses Not on filedocumented in this encounter"
--- OUTSIDE RECORDS SUMMARY | ~2019-12-13 | XMS | Encounter Summary ---
Demographics + + + | Address | [address] | | | [place] [address] [...] Providers + +------+ + | Care Hot Plate Plywood Press Offbearer Name | Role | Phone | [...] + + | 12/20/ | Office | [facility] | Ulysses Genao MD | Meniere's disease of | | 2019 | Visit | OTOLARYNGOLOGY [address] | [address] | right ear (Primary | | | | [address] | [address] | Dx); Benign | | | | [place] | [place] [address] | paroxysmal | | | | [address] | [phone] | positional vertigo, | | | | [phone] | | unspecified | | | | [...] tympanog ainsley were A tympanograms. Her speech law office receptionist threshold is 30 dB in the [...] sched uled for a Tayler maneuver in [place]. Extended time was spent with the patient.Electronic [...] | | | | | [place] [address] | | | | | | [phone] | | | | | | | | +--------+---------+ + + + | 12/20/ | Office | Otolaryngology | Ulysses Genao MD | | | 2019 | Visit | | [address] | | | | | | [address] | | | | | | [place], [place] [address] | | | | | | [phone] | | | | | | | | +--------+---------+ + + + | 02/15/ | Office | Internal Medicine | Alanis, | | | 2019 | Visit | | MD Petrona | | | | | | [address] | | | | | | [place] [address] | | | | | | [phone] | | | | | | | | +--------+---------+ + + + documented as of this encounter Visit Diagnoses + + | Diagnosis | + + | Meniere's disease of right ear - Primary Meniere's disease, unspecified | + + | Benign paroxysmal positional vertigo, unspecified laterality | + + documented in this encounter
--- OUTSIDE RECORDS SUMMARY | ~2019-12-13 | XMS | Encounter Summary ---
Demographics + + + | Address | [address] | | | [place] [address] | + + + | Home Phone [...] Team Providers + +------+ + | Care Pump Press Operator Name | Role | Phone [...] | Neurology | Diagnoses | [place], | [place], | | | | | Migraine | NIHARIKA Jean | Merari Lopez MD | | | | | headache | [address] | | | | | | Procedures | [address] | | | | | | CONSULT TO | [place], [place] | | | | | | NEUROLOGY | [address] | | +--------+--------+ + + + + [...] [facility] | | Migraine Headache; | | | | [address] | | Opioid Dependence, | | | | Mailcode: CH15P | | Continuous (HCC); | | | | Center [facility] | | Neck Pain; Right | | | | and Healing, | | shoulder rotator | | | | Building | | cuff strain; | | | | Floor [facility] [place] | | 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 Schedule Neurology evaluation [facility] order placed for Dr. Merari Mittal MD 4. Follow up 11/11/06 documented in this encounter Progress Notes Delfina Molian - 10/23/2006 1:20 PM PDTFormatting of this [...] car. She has not been seeing the [facility] PT , await ing the surgical plan for her left knee. MRI done, ordered by Dr. Ibarra who referred to Dr. Angel Morales for surgical opinion, scheduled for 10/28/06. She continues to see Dr. Alin adames at [facility] and reports benefit and would like to nelly salude she has two more scheduled visits. She reports Dr. Woodson referred her to neurologist locally for her migraine assessment how ever not being scheduled due to insurance [place] barriers. She is interested in being referred to a Dr. Merari Mittal [facility] neurlogy whom she has heard works with [...] Collection Time Resulting Agency 10/05/2006 9:20 AM [facility] DEPARTMENT OF RADIOLOGY Component Results MR [...] the free margin and undersurface of the facility worker horn of the medial meniscus suspicious for [...] the left knee 3. Schedule Neurology evaluation [facility] order placed for Dr. Merari Mittal MD 4. Follow up 11/11/06 to reivew pain management 5. Cntinue with PT and psychology as scheduled DELFINA MOLINA [facility] Mail code CH 4P [address] [address] iAgustin maciasndy - 10/23 12:47 [...]
--- OUTSIDE RECORDS SUMMARY | ~2019-12-13 | XMS | Encounter Summary ---
Demographics + + + | Address | [address] | | | [place] [address] | + + + | Home Phone [...] Padgett, | | | 2010 | | [place] [address] | [address] [facility] | | | | | [place] Mailcode: CH4S | [facility] | | | | | Center for Health | [place], [place] | | | | | and Healing, | [address] | | | | | [facility] | [phone] | | | | | Floor [place], [place] | | | | | | [address] | | | | | | [phone] | | | +--------+ + + + [...]
--- OUTSIDE RECORDS SUMMARY | ~2019-12-13 | XMS | Encounter Summary ---
Demographics + + + | Address | [address] | | | [place] [address] [...] Providers + +------+ + | Care Rn Acls Name | Role | Phone | + [...] | | | | Clinical Nutrition | [place], [place] | | | | | [address] | [address] | | | | | Loop Mailcode: OPC5 | [phone] | | | | | Outpatient Clinic | | | | | | [facility] | | | | | | [place] [address] | | | | | | [phone] | | | +--------+ + + + [...] + + + | [facility] | [address] | [place] [address] | | | LABORATORY | | | [...] | uIU/ml | | | | | [facility] | | | | | | [facility]. | | | | + + + + + + + + | Specimen | + + | | + + + + + + + | Performing | Address | City/State/Zipcode | Phone Number | | Organization | | | | + + + + + | [facility] | [address] | [place] [address] | | | LABORATORY | | | [...] | + + + + + | [facility] DEPARTMENT OF | [address] | [place] [address] | | | PATHOLOGY | [address] | | | + + + + + | [place] DEPARTMENT OF | [address] | [place] [address] | | | PATHOLOGY | [address] | | | + + + + + documented in this encounter Visit Diagnoses Not on filedocumented in this encounter"
--- OUTSIDE RECORDS SUMMARY | ~2019-12-13 | XMS | Encounter Summary ---
Demographics + + + | Address | [address] | | | [place] [address] | + + + | Home Phone [...] Providers + +------+ + | Care Pickling Drum Operator Name | Role | Phone | [...] | | [facility] | [address] [facility] | | | | | [facility] | [address] [place], | | | | | [address] | [place] [address] | | | | | [address] | [phone] | | | | | Physician's | | | | | | Pavilion, 1st floor | | | | | | [place], [place] | | | | | | [address] | | | | | | [phone] | | | +--------+ + + + [...] | | + +---------+--------+ + + | MT DXA BONE | Imaging | Routin | [...]
--- OUTSIDE RECORDS SUMMARY | ~2019-12-13 | XMS | Encounter Summary ---
Demographics + + + | Address | [address] | | | [place] [address] | + + + | Home Phone [...] Team Providers + +------+ + | Care Operating Room Scheduler Name | Role | Phone | + +------+ + | Pedrito Gutierrez MD | PCP | | + +------+ + Encounter Details +--------+ + + + + | Date | Type | Department | Care Team | Description | +--------+ + + + + | 07/30/ | Office | [facility] [address] | Clinic, | Progress Note | | 2006 | Visit-Trans | [facility] | Endocrinology | | | | kurt | Sacha | | | | | | [facility], | | | | | | 7th floor | | | | | | [place], [place] | | | | | | [address] | | | | | | [phone] | | | +--------+ + + + [...] as of this encounter Progress Notes Interface, Sports Writer In - 09/16/2006 7:22 AM PDT [id number] GEOVANNI Barnes [id number] Clinic Date: 07/30/2006 Clinic: Endocrinology Subjective: Belinda [...] year. Beto Meeks M.D. PD / [id number] / [id number] / [id number] / [id number] cc: Joanna Arshad M.D. Jonathan Hitzman, M.D. [address] [facility] [place] [address] Electronically signed by Beto Meeks 09-15-2006 11:40:17 PM documented in this encounter Plan of Treatment Not on filedocumented as of this encounter Visit Diagnoses Not on filedocumented in this encounter"
--- OUTSIDE RECORDS SUMMARY | ~2019-12-13 | XMS | Encounter Summary ---
Demographics + + + | Address | [address] | | | [place] [address] | + + + | Home Phone [...] Providers + +------+ + | Care Information Operator Name | Role | Phone | [...] [address] | | | | | | [place], [place] | | | | | | [address] | | | | | | [phone] | | | +--------+--------+ + + + [...]
--- OUTSIDE RECORDS SUMMARY | ~2019-12-13 | XMS | Encounter Summary ---
Demographics + + + | Address | [address] | | | [place] [address] | + + + | Home Phone [...] Providers + +------+ + | Care Chemical Research Engineer Name | Role | Phone | + +------+ + | Maria Esther Cintron MD | PCP | | + +------+ + Encounter Details +--------+ + + + + | Date | Type | Department | Care Team | Description | +--------+ + + + + | 08/26/ | Telephone | [facility] | Chris Padgett, | | | 2010 | | [place] [address] | [address] [facility] | | | | | [place] Mailcode: CH4S | [address] | | | | | Center for Health | [place], [place] | | | | | and Healing, | [address] | | | | | Building , 6th | [phone] | | | | | Floor [place], [place] | | | | | | [address] | | | | | | [phone] | | | +--------+ + + + [...]
--- OUTSIDE RECORDS SUMMARY | ~2019-12-13 | XMS | Encounter Summary ---
Demographics + + + | Address | [address] | | | [place] [address] | + + + | Home Phone [...] Providers + +------+ + | Care Sample Preparation Supervisor Name | Role | Phone | [...] [address] | | | | | | [place], [place] | | | | | | [address] | | | | | | [phone] | | | +--------+ + + + [...] DEPARTMENT OF | [address] | [place] [address] | | | PATHOLOGY | [address] | | | + + + + + | [facility] DEPARTMENT | [address] | [place] [address] | | | PATHOLOGY | [address] | | | + + + + + PROTHROMBIN TIME (03/10/2006 2:42 PM PDT) + + + + + + | Component | Value | Ref Range | Performed | Pathologist | | | | | At | Signature | + + + + + + | INR | 1.01Comment: | 0.90 - 1.20 INR | [facility] | | | | PT INR Therapeutic [...] + + + + + | [facility] | [address] [place] [address] | [place] [address] | | | PATHOLOGY | [address] | | | + + + + + | [facility] | [address] [facility] | [place] [address] | | | PATHOLOGY | [address] [...] DEPARTMENT OF | [address] | [place] [address] | | | PATHOLOGY | [address] | | | + + + + + | [facility] DEPARTMENT OF | [address] | [place] [address] | | | PATHOLOGY | [address] [...] [facility] | [address] [facility] | [place] [address] | | | PATHOLOGY | [address] | | | + + + + + | [facility] | [address] [facility] [address] | [place] [address] | | | PATHOLOGY | [address] [...] + + + | [facility] | [address] | [place] [address] | | | LABORATORY | | | [...] | | | | | performed at [place] | | | | | [facility] [...] + + + | [facility] | [address] | [place] [address] | | | LABORATORY | | | | + + + + + documented in this encounter Visit Diagnoses + + | Diagnosis | + + | Chronic abdominal pain Abdominal pain, unspecified site | + + | Iron deficiency Other disorders of iron metabolism | + + documented in this encounter"
--- OUTSIDE RECORDS SUMMARY | ~2019-12-13 | XMS | Encounter Summary ---
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 Provider: DELFINA MOLINA ANP Nathalia Garrett - 007 4:49 PM PDT Physical Therapy Medicare Progress Note Date: 09/09/2006 Belinda J Shefali [id number]. 1960 Start of Care: 06/23/2006 Referring Provider: [...] with walking and sitting; driving back to [place] 2 weeks ago, stopped at rest place and got out of care, falling onto B knees, getting better. Objective: Apparently patient's trip home 2 weeks ago was most likely related to her positi oning, ie B knees were hyperflexed for a prolonged time. She has not fallen since then, use s her lofstrand crutches consistently. Functionally, patient is walking 25 minutes at [place] at least daily and tolerating it we [...] + + +--------+ + + | DE MANUAL THER | Procedures | Routin | [...] + + +--------+ + + | DE THERAPEUTIC | Procedures | Routin | Neck [...]
--- OUTSIDE RECORDS SUMMARY | ~2019-12-13 | XMS | Encounter Summary ---
Demographics + + + | Address | [address] | | | [place] [address] | + + + | Home Phone [...] Team Providers + +------+ + | Care Driver License Technician Name | Role | Phone | [...] as of this encounter Progress Notes Interface, Lab Rn In - 01/12/2005 8:09 AM PDT [id number] [facility] Date: 03/07/2004 Clinic: [facility] TELEPHONE CONVERSATION Subjective: Belinda contacted the [...] cholelithiasis. She is welcome to come to [facility] for evaluation; however, given the distance of a 4-hour travel time, we found it would be more expeditious for her to be seen at her local hospital in [place]. The patient also agrees with this plan [...] additional followup as needed. Christie Kirkpatrick / [id number] / [id number] / [id number] / documented i n this encounter Plan of Treatment Not on filedocumented as of this encounter Visit Diagnoses Not on filedocumented in this encounter"
--- OUTSIDE RECORDS SUMMARY | ~2019-12-13 | XMS | Encounter Summary ---
Demographics + + + | Address | [address] | | | [place] [address] | + + + | Home Phone [...] Providers + +------+ + | Care Fiber Glass Worker Name | Role | Phone | [...] as of this encounter Progress Notes Interface, Nurse Sitter In - 08/30/2005 2:07 AM PST [id number] [facility] Date: 08/11/2005 Clinic: Colorectal [...] Rebekah Navas M.D. Chris Padgett M.D. / [id number] / [id number] / [id number] / [id number] E: 08/14/2005 [email or web address] cc: Dr. Sarah De Jesus, [place] Electronically signed by Chris Padgett 08-29-2005 03:28:30 PM documented i n this encounter Plan of Treatment Not on filedocumented as of this encounter Visit Diagnoses Not on filedocumented in this encounter"
--- OUTSIDE RECORDS SUMMARY | ~2019-12-13 | XMS | Encounter Summary ---
Demographics + + + | Address | [address] | | | [place] [address] | + + + | Home Phone [...] Team Providers + +------+ + | Care Testing Engineer Name | Role | Phone | [...] | | [facility] | [place], [place] | | | | | [address] | [address] | | | | | [address] | [phone] | | | | | Physician's | | | | | | Pavilion, 1st floor | | | | | | [place], [place] | | | | | | [address] | | | | | | [phone] | | | +--------+--------+ + + + [...]
--- OUTSIDE RECORDS SUMMARY | ~2019-12-13 | XMS | Encounter Summary ---
Demographics + + + | Address | [address] | | | [place] [address] | + + + | Home Phone [...] Team Providers + +------+ + | Care Mental Health Program Manager Name | Role | Phone [...] + | 09/16/ | Telephone | [facility] | Alanis, | Results, Imaging | | 2018 | | MEDICINE [address] | MD [place] | | | | | [place], | [address] [facility] [address] | | | | | [place] [address] | [place] [address] | | | | | [phone] | [phone] | | | | | | | [...] PM PDTColumb[facility] office notified of MD comments, requested last chart note, ok per to fax chart note for r eview elephone Encounte r - Maggie Montoya LPN - 09/16/2018 12:54 PM PDT----- Message from Petrona López i, MD sent at 09/15/2018 15:48 PDT ----- X-ray shows no fracture. When you have time, could you let her pain specialist or their staff know about her fall pl ease. elephone Encounte r - Maggie Montoya LPN - 09/16/2018 12:54 PM PDTPatient notified of x-ray results with MD bailey mments elephone Kristinet Sia Zaragoza - 09/16/2018 12:30 PM PDTPatient calling in to see if results are back aren madera she got done yesterday, patient can be reached at [phone] signed b jeannie Bai at 09/16/2018 12:33 PM PDTdocumented in this encounter Plan of Treatment +--------+---------+ + + + | Date | Type | Specialty | Care Team | Description | +--------+---------+ + + + | 12/20/ | Office | Audiology | Elisabet Munson MS | | | 2019 | Visit | | [facility] [address] | | | | | | [address] [place] | | | | | | [place] [address] | | | | | | [phone] | | | | | | | | +--------+---------+ + + + | 12/20/ | Office | Otolaryngology | Ulysses Genao MD | | 2019 | Visit | | [address] | | | | | | [address] [place] | | | | | | [place] [address] | | | | | | [phone] | | | | | | | | +--------+---------+ + + + | 02/15/ | Office | Internal Medicine | Alanis, | | | 2019 | Visit | | MD [place] | | | | | | [address] [place] | | | | | | [place] [address] | | | | | | [phone] | | | | | | | | +--------+---------+ + + + documented as of this encounter Visit Diagnoses Not on filedocumented in this encounter"
--- OUTSIDE RECORDS SUMMARY | ~2019-12-13 | XMS | Encounter Summary ---
Demographics + + + | Address | [address] | | | [place] [address] | + + + | Home Phone [...] Team Providers + +------+ + | Care Solid Plasterer Name | Role | Phone | [...] Rd | Urologist) | | | | [facility] | [place], [place] | | | | | and [place], | [address] | | | | | [facility] | [phone] | | | | | [place], [place] | | | | | | [address] | | | | | | [phone] | | | +--------+ + + + [...]
--- OUTSIDE RECORDS SUMMARY | ~2019-12-13 | XMS | Encounter Summary ---
Demographics + + + | Address | [address] | | | [place] [address] | + + + | Home Phone [...] Providers + +------+ + | Care Locksmith Apprentice Name | Role | Phone | [...] + + | 05/04/ | Refill | [facility] | Alanis, | Medication Refill | | 2017 | | MEDICINE [address] | MD [place] | | | | | [place], | [address] [facility] | | | | | [place] [address] | [place] [address] | | | | | [phone] | [phone] | | | | | | | [...] | | [facility] [address] | | | | | [address] [place] | | | | | | [place] [address] | | | | | | [phone] | | | | | | | | +--------+---------+ + + + | 12/20/ | Office | Otolaryngology | Ulysses Genao MD | | | 2019 | Visit | | [address] | | | | | | [address] [place] | | | | | | [place] [address] | | | | | | [phone] | | | | | | | | +--------+---------+ + + + | 02/15/ | Office | Internal Medicine | Alanis, | | | 2019 | Visit | | MD [place] | | | | | | [address] [place] | | | | | | [place] [address] | | | | | | [phone] | | | | | | | | +--------+---------+ + + + documented as of this encounter Visit Diagnoses Not on filedocumented in this encounter"
--- OUTSIDE RECORDS SUMMARY | ~2019-12-13 | XMS | Encounter Summary ---
Demographics + + + | Address | [address] | | | [place] [address] | + + + | Home Phone [...] Providers + +------+ + | Care Commercial Administrator Name | Role | Phone | [...] + | 08/23/ | Refill | [facility] | Alanis, | Medication Refill | | 2017 | | MEDICINE [address] | MD [place] | | | | | [place], | [address] [facility] | | | | | [place] [address] | [place] [address] | | | | | [phone] | [phone] | | | | | | | [...] | [facility] [address] | | | | | | [address] [place] | | | | | | [place] [address] | | | | | | [phone] | | | | | | | | +--------+---------+ + + + | 12/20/ | Office | Otolaryngology | Ulysses Genao MD | | | 2019 | Visit | | [address] | | | | | | [address] [place] | | | | | | [place] [address] | | | | | | [phone] | | | | | | | | +--------+---------+ + + + | 02/15/ | Office | Internal Medicine | Alanis, | | | 2019 | Visit | | MD [place] | | | | | | [address] [place] | | | | | | [place] [address] | | | | | | [phone] | | | | | | | | +--------+---------+ + + + documented as of this encounter Visit Diagnoses Not on filedocumented in this encounter"
--- OUTSIDE RECORDS SUMMARY | ~2019-12-13 | XMS | Encounter Summary ---
Demographics + + + | Address | [address] | | | [place] [address] | + + + | Home Phone [...] Providers + +------+ + | Care Transcription Coordinator Name | Role | Phone | [...] Rd | | | | | | [place], [place] | | | | | | [address] | | | +--------+ + + + [...]
--- OUTSIDE RECORDS SUMMARY | ~2019-12-13 | XMS | Encounter Summary ---
Demographics + + + | Address | [address] | | | [place] [address] [...] Providers + +------+ + | Care House Superintendent Name | Role | Phone | [...] as of this encounter Progress Notes Interface, Gallery Or Museum Technician In - 01/12/2005 9:01 AM PDT [id number] [facility] Date: 05/20/2004 Clinic: Morbid [...] Surgery Chris Padgett M.D. MS / HS [id number] / [id number] / [id number] / [id number] documented i n this encounter Plan of Treatment Not on filedocumented as of this encounter Visit Diagnoses Not on filedocumented in this encounter"
--- OUTSIDE RECORDS SUMMARY | ~2019-12-13 | XMS | Encounter Summary ---
Demographics + + + | Address | [address] | | | [place] [address] | + + + | Home Phone [...] Providers + +------+ + | Care Leather Parts Matcher Name | Role | Phone | + [...] | | | | | Encounter | [place] | [place] | | | | | for | [address] | [address] | | | | | long-term | | Phone: | | | | | (current) | | [phone] | | | | | use of other | | Fax: | | | | | medications | | [phone] | | | | | LBP (low [...] 06/23/ | Office | [facility] | Lukasz Charles, | Major depressive | | 2013 | Visit | [address] | PhD [address] | disorder, recurrent | | | | Mailcode: CH15P | [place], [place] | episode, moderate | | | | [place] for [facility] | [address] | ([facility]) (Primary Dx); | | | | and Healing, | [phone] | LBP (low back pain); | | | | | | Adjustment disorder | | | | Floor [place], [place] | | with anxiety | | | | [address] | | | | | | [phone] | | | +--------+---------+ + + + [...] an appropriate candidate for a stimulator. Diagnosis: Pickens I: 1. (296.32) Major depressive disorder, recurrent, moderate. 2. (309.24) Adjustment disorder with anxiety. Pickens II: Deferred Pickens III: abdominal pain, migraine headache, low back pain, fibromyalgia. Pickens IV: low finances Pickens V: GAF 55-60 Plan: return in 1 month. Check mood, pain, activity, stress management. Ask about spinal cord stimulator, any changes at home. Continue cognitive/behavioral therapy. Total time spent with patient was approximately 45 minutes. LUKASZ CHARLES PHD [facility] [address] [place] [address], [address] [place] [address] documented in this en counter Plan of [...]
--- OUTSIDE RECORDS SUMMARY | ~2019-12-13 | XMS | Encounter Summary ---
[...] Team Providers + +------+ + | Care Pets And Pet Supplies Salesperson Name | Role | Phone | [...] as of this encounter Progress Notes Interface, Electrical Equipment Technician In - 04/07/2006 2:32 AM PDT [id number] GE[facility]NI SKELTON Molly [id number] Clinic Date: 04/01/2006 Clinic: Rheumatology Belinda Meehan is here for a couple of trigger point injections. She comes from [place]. Tomorrow, she is due for an EGD [...] 4 months. Caitlin Rivera M.S., F.N.P. / [id number] / [id number] / [id number] / [id number] Electronically signed by Caitlin Rivera 04-06-2006 03:23:35 PM documented i n this encounter Plan of Treatment Not on filedocumented as of this encounter Visit Diagnoses Not on filedocumented in this encounter"
--- OUTSIDE RECORDS SUMMARY | ~2019-12-13 | XMS | Encounter Summary ---
Demographics + + + | Address | [address] | | | [place] [address] | + + + | Home Phone [...] Team Providers + +------+ + | Care Boring Mill Operator For Metal Name | Role | Phone | + [...] + + | 12/04/ | Telephone | [facility] | Alanis, | Medication Orders | | 2019 | | MEDICINE [address] | MD [place] | | | | | [place], | [address] | | | | | [place] [address] | [place] [address] | | | | | [phone] | [phone] | | | | | | | [...] the nu rse. Please call patient at [phone].Electronically signed by Adriana Cantor at 11/14 8:17 AM PDTTelephone Encounter - Adriana Cantor - 12/05/2019 6:42 AM PDTPatient called asking to speak with the nurse. She stated her Loperamide was called in incorrectly and needs to be called in as 4 capsules in the morning and 2 in the evening and not just 2 in the daytime. Please call patient at [phone]. documented in this encounter Plan of Treatment [...] | | | | | [place] [address] | | | | | | [phone] | | | | | | | | +--------+---------+ + + + | 12/20/ | Office | Otolaryngology | Ulysses Genao MD | | 2019 | Visit | | [address] | | | | | | [address] [place] | | | | | | [place] [address] | | | | | | [phone] | | | | | | | | +--------+---------+ + + + | 02/15/ | Office | Internal Medicine | Alanis, | | | 2019 | Visit | | MD [place] | | | | | | [address] [place] | | | | | | [place] [address] | | | | | | [phone] | | | | | | | | +--------+---------+ + + + documented as of this encounter Visit Diagnoses Not on filedocumented in this encounter"
--- OUTSIDE RECORDS SUMMARY | ~2019-12-13 | XMS | Encounter Summary ---
Demographics + + + | Address | [address] | | | [place] [address] | + + + | Home Phone [...] Rd | | | | | | [place], [place] | | | | | | [address] | | | +--------+ + + + [...] | Procedure Note | + + | Edwgie Faculty - 11/03/2013 10:22 AM PDT | + + documented in this encounter Visit Diagnoses Not on filedocumented in this encounter"
--- OUTSIDE RECORDS SUMMARY | ~2019-12-13 | XMS | Encounter Summary ---
Demographics + + + | Address | [address] | | | [place] [address] | + + + | Home Phone [...] Providers + +------+ + | Care Records Analysis Manager Name | Role | Phone [...] + + | 10/19/ | Telephone | [facility] | Alanis, | Lab Order | | 2017 | | MEDICINE [address] [place] [address] | MD [place] | | | | | [place], | [address] [facility] | | | | | [place] [address] | [place] [address] | | | | | [phone] | [phone] | | | | | | | [...] they could be called to [facility] in [place]. Nguyễn de would like a call back [...] | | | | | [place] [address] | | | | | | [phone] | | | | | | | | +--------+---------+ + + + | 12/20/ | Office | Otolaryngology | Ulysses Genao MD | | | 2019 | Visit | | [address] | | | | | | [address] [place] | | | | | | [place] [address] | | | | | | [phone] | | | | | | | | +--------+---------+ + + + | 02/15/ | Office | Internal Medicine | Alanis, | | | 2019 | Visit | | MD [place] | | | | | | [address] [place] | | | | | | [place] [address] | | | | | | [phone] | | | | | | | | +--------+---------+ + + + documented as of this encounter Visit Diagnoses Not on filedocumented in this encounter"
--- OUTSIDE RECORDS SUMMARY | ~2019-12-13 | XMS | Encounter Summary ---
Demographics + + + | Address | [address] | | | [place] [address] | + + + | Home Phone [...] Providers + +------+ + | Care Senior Front End Web Developer Name | Role | Phone [...] [address] | | | | | | [place], [place] | | | | | | [address] | | | | | | [phone] | | | +--------+ + + + [...]
--- OUTSIDE RECORDS SUMMARY | ~2019-12-13 | XMS | Encounter Summary ---
Demographics + + + | Address | [address] | | | [place] [address] | + + + | Home Phone [...] Providers + +------+ + | Care Fur Pointer Name | Role | Phone | + [...] + + | 09/15/ | Office | [facility] | Emmy-Tajti, | Pain in right lower | | 2019 | Visit | MEDICINE [address] | MD [place] | leg (Primary Dx); | | | | [address] [place], | [address] [facility] | Fall in bathtub, | | | | [place] [address] | [place] [address] | initial encounter; | | | | [phone] | [phone] | Other osteoporosis | | | | [...] Common migraine COPD (chronic obstructive pulmonary disease) ([facility]) Depression Diarrhea Dumping syndrome Fall at home Fatigue fracture of vertebra Fibromyalgia Full dentures GERD (gastroesophageal reflux disease) Glaucoma Hyperparathyroidism ([facility]) Hypothyroidism IBS (irritable bowel syndrome) Idiopathic scoliosis Leg edema Low back pain Lumbar postlaminectomy syndrome Lumbar radiculopathy primarily right 01/04/2015 Meniere syndrome Migraine with aura Migraines Muscle cramping Muscle spasm Myalgia Nausea Nonalcoholic hepatosteatosis Obesity Opioid dependence ([facility]) Orthostatic hypotension OLIVER (obstructive sleep apnea) Osteoarthritis, generalized Osteopenia Osteoporosis Palpitations Peripheral neuropathy Rheumatoid arthritis ([facility]) Right arm pain 01/04/2015 RLS (restless legs syndrome) S/P lumbar fusion 01/04/2015 Scoliosis Sleep apnea Spondylosis with myelopathy, lumbar region Stroke ([facility]) Syncope Tremor Type II or unspecified type [...] COLONOSCOPY; Surgeon: Luther Brito MD; Location: [facility] DILATION AND CURETTAGE OF UTERUS ELBOW SURGERY FINGER TRIGGER RELEASE 2002 FINGER TRIGGER RELEASE 2010 GASTRIC BYPASS SURGERY 2004 HYSTERECTOMY 05/14/1980 JOINT REPLACEMENT Bilateral 2006 2007 KNEE ARTHROSCOPY 2005 LAPAROSCOPY 01/27/2015 LAPAROTOMY 2008 ROTATOR CUFF REPAIR 2005 SPINE SURGERY TONSILLECTOMY 1964 UPPER GASTROINTESTINAL ENDOSCOPY N/A 12/18/2017 Procedure: EGD; Surgeon: Luther Brito MD; Location: [facility] CURRENT MEDICATIONS Current [...] ours as needed for Pain. Incontinence Supplies [facility] As directed 100 each 11 levothyroxine (SYNTHROID) [...] (See Comments) Confused and questionable for seizures Hgjguxvfar-Qjum-Aqsqjwvj Hives and Rash Cephalexin Hives Ciprofloxacin Hives [...] Note: Parts of this documentwere created using Kextil speech recognition software. As a r esult, [...] [place] | | | | | | [place] [address] | | | | | | [phone] | | | | | | | | +--------+---------+ + + + | 12/20/ | Office | Otolaryngology | Ulysses Genao MD | | | 2019 | Visit | | [address] | | | | | | [address] [place] | | | | | | [place] [address] | | | | | | [phone] | | | | | | | | +--------+---------+ + + + | 02/15/ | Office | Internal Medicine | Alanis, | | | 2019 | Visit | | MD [place] | | | | | | [address] [place] | | | | | | [place] [address] | | | | | | [phone] | | | | | | | [...] | | | | First dose on [facility] 10/15/17 at 1215 | | [...]
--- OUTSIDE RECORDS SUMMARY | ~2019-12-13 | XMS | Encounter Summary ---
Demographics + + + | Address | [address] | | | [place] [address] | + + + | Home Phone [...] + +------+ + | Care Cash Management Clerk Name | Role | Phone | [...] as of this encounter Progress Notes Interface, Depalletizer Operator In - 01/11/2005 7:39 PM PDT Referred [...] 3-6 months time. She is coming from [place] so this can be scheduled on the same day of her physician visit. General surgery can schedule this. 5. Indra's business card with contact information for questions. Svetlana Maki R.D., LKyrie. SR/y39 P [id number] cc: documente d in this encounter Plan of Treatment Not on filedocumented as of this encounter Visit Diagnoses Not on filedocumented in this encounter"
--- OUTSIDE RECORDS SUMMARY | ~2019-12-13 | XMS | Encounter Summary ---
Demographics + + + | Address | [address] | | | [place] [address] | + + + | Home Phone [...] Providers + +------+ + | Care Chemical Supervisor Name | Role | Phone | [...] | 04/08/ | Telephone | [facility] | Carlos Arreola, | Swelling | | 2005 | | Gastroenterology/Hep | [address] | ([place]) | | | | atology [address] | | | | | [address] | [place] [address] | | | | | Mailcode: [id number] | [phone] | | | | | [facility] | | | | | | [address] | | | | | | [place], [place] | | | | | | [address] | | | | | | [phone] | | | +--------+ + + + [...]
--- OUTSIDE RECORDS SUMMARY | ~2019-12-13 | XMS | Encounter Summary ---
Demographics + + + | Address | [address] | | | [place] [address] | + + + | Home Phone [...] Providers + +------+ + | Care Administrative Assistant Receptionist Name | Role | Phone | [...] + + | 11/12/ | Telephone | [facility] | Alanis, | Leg Swelling | | 2017 | | MEDICINE [address] | MD [place]ron[place] | | | | | [place], | [address] [facility] | | | | | [place] [address] | [place] [address] | | | | | [phone] | [phone] | | | | | | | [...] | | | | | [place] [address] | | | | | | [phone] | | | | | | | | +--------+---------+ + + + | 12/20/ | Office | Otolaryngology | Ulysses Genao MD | | | 2019 | Visit | | [address] | | | | | | [address] [place] | | | | | | [place] [address] | | | | | | [phone] | | | | | | | | +--------+---------+ + + + | 02/15/ | Office | Internal Medicine | Alanis, | | | 2019 | Visit | | MD [place]rona | | | | | | [address] | | | | | | [place] [address] | | | | | | [phone] | | | | | | | | +--------+---------+ + + + documented as of this encounter Visit Diagnoses Not on filedocumented in this encounter"
--- OUTSIDE RECORDS SUMMARY | ~2019-12-13 | XMS | Encounter Summary ---
[...] Team Providers + +------+ + | Care Container Finisher Name | Role | Phone | [...] 2007 | Only | [address]ACE [address] | [phone] | | | | | Rd Mailcode: RPB07 | | | | | | [place], [place] | | | | | | [address] | | | | | | [phone] | | | +--------+ + + + [...] + + + | [facility] DEPARTMENT OF | [facility] [address] | [place] [address] | | | PATHOLOGY | [address] | | | + + + + + | [place] DEPARTMENT OF | [facility] [address] | [place] [address] | | | PATHOLOGY | [address] | | | + + + + + documented in this encounter Visit Diagnoses Not on filedocumented in this encounter"
--- OUTSIDE RECORDS SUMMARY | ~2019-12-13 | XMS | Encounter Summary ---
Demographics + + + | Address | [address] | | | [place] [address] | + + + | Home Phone [...] Providers + +------+ + | Care Mold Cleaning And Storage Supervisor Name | Role | Phone | [...] | | | | behavior of | [facility] | Orthopaedics | | | | | bone and | & Fractur | [address] | | | | | articular | [address] | Naeem Mcrae | | | | | cartilage | [address] | Rd | | | | | Procedures | [place], | [place], [place] | | | | | REQUEST TO | [place] [address] | [address] | | | | | SURGERY | Phone: | | | | | | PONY CYLINDER PRESS OPERATOR | [phone] | | | | | | CT BONE | Fax: | | | | | | BIOPSY,OPEN | [phone] | | | | | | DEEP CT | | | | | | | EXCIS/CURET | | | | | | | BENIGN TUMR | | | | | | | CLAV/SCAPULA | | | | | | | CT EXCIS | | | | | | | BENIGN TUMR | | | | | | | CLAV/SCAP,AU | | | | | | | TOGRFT CT | | | | | | | [...] | | | | | | | [facility] | Orthopaedics | | | | | | & Fractur | [address] | | | | | | [address] | Naeem Mcrae | | | | | | Nirav Kovacs | Peterson | | | | | | [place], | [place], [place] | | | | | | [place] [address] | [address] | | | | | | Phone: | | | | | | | [phone] | | | | | | | Fax: | | | | | | | [phone] | | +--------+--------+ + + + + [...] | (Primary Dx) | | | | [place], [place] | | | | | | [address] | | | | | | [phone] | | | +--------+---------+ + + + [...] 08/2007 right knee Hx lumbar fusion 05/2008 L5-Z2hoglah with bone spur removals Hx appendectomy Hx cholecystectomy Hx section Hx hysterectomy Gastric bypass Mayra Padgett wt 278 01/18 Paniculectomy Allergies: Allergies Allergen Reactions Keflex (Cephalexin) Sulfa (Sulfonamides) Codeine Penicillins Clindamycin Cipro (Ciprofloxacin) Tramadol Morphine IM ( only in [facility]) made gut pain worse 08/27/06: Trial of oral MSIR caused leg swelling Clarithromycin Hives Mainly in the legs Rccyugn-mdhzitjfey-txn-caff Balance problems Amitriptyline Grand mal seizures Medications: [...] signs are noted as recorded by the Law Instructor. General: Alert, awake, and oriented x3. No [...] No: | | | | | | [id number] Name: | | | | | | BELINDA MEEHAN | | | | | | Birthday: 1960 | | | | | | Sex: F | | | | | | Alias:Patient Location: | | | | | | [id number]: Outpatient | | | | | | ActiveOrdering | | | | | | Physician: JOSÉ MIGUEL | | | | | | MARYSOL MORENO SCAPULA | | | | | | COMPLETE completed on | | | | | | 01/01/2009 11:55 | | | | | | AMAccession # | | | | | | [id number]:LEFT | | | | | | SCAPULA [...]
--- OUTSIDE RECORDS SUMMARY | ~2019-12-13 | XMS | Encounter Summary ---
Demographics + + + | Address | [address] | | | [place] [address] | + + + | Home Phone [...] Providers + +------+ + | Care Educational Director Name | Role | Phone | + +------+ + PCP | Unavailable | + +------+ + Encounter Details +--------+ + + + + | Date | Type | Department | Care Team | Description | +--------+ + + + + | 12/21/ | Results | Rheumatology | Caitlin Rivera, | | | 2003 | Only | [address] | CORE CLEANER | | | | | Sharmila Schilling | | | | | | Mailcode: OPC5 | | | | | | Outpatient Clinic | | | | | | Building [facility] | | | | | | [place] [address] | | | | | | [phone] | | | +--------+ + + + [...] Iron and TIBC, Serum Test performed by [facility] | | | [facility]. | | + + + + + + + + | Performing | Address | City/State/Zipcode | Phone Number | | Organization | | | | + + + + + | [facility] | [address] | [place] [address] | | | LABORATORY | | | [...] | + + + + + | [facility] | [address] | [place] [address] | | | LABORATORY | | | [...] | | | | | performed at [facility] | | | | | | [facility] | | | | | | Laboratory | | | | + + + + + + + + | Specimen | + + | | + + + + + + + | Performing | Address | City/State/Zipcode | Phone Number | | Organization | | | | + + + + + | [facility] | [address] | [place] [address] | | | LABORATORY | | | | + + + + + documented in this encounter Visit Diagnoses Not on filedocumented in this encounter"
--- OUTSIDE RECORDS SUMMARY | ~2019-12-13 | XMS | Encounter Summary ---
Demographics + + + | Address | [address] | | | [place] [address] | + + + | Home Phone [...] Team Providers + +------+ + | Care Daycare Teacher Name | Role | Phone | [...] | | | | [address] | [address] Phone: | | | | | | [place], | [phone] | | | | | | [place] | Fax: | | | | | | [address] | [phone] | | | | | | Phone: | | | | | | | [phone] | | | | | | | Fax: | | | | | | | [phone] | | +--------+--------+ + + + + Encounter Details +--------+---------+ + + + | Date | Type | Department | Care Team | Description | +--------+---------+ + + + | 11/28/ | Office | [facility] | Carlos Hsieh | NO SHOW (Primary Dx) | | 2014 | Visit | PHYSIATRY [address] | T, [address] | | | | [address] | [address] [place], [place] | | | | | [place], [place] | [address] | | | | | [address] | | | | | | [phone] | Joe, | | | | | | MARY Montero [address] | | | | | | [address] | | | | | | [place] [address] | | | | | | [phone] | | | | | | | [...] 2019 | Visit | | [facility] [address] | | | | | | [place] | | | | | | [place] [address] | | | | | | [phone] | | | | | | | | +--------+---------+ + + + | 12/20/ | Office | Otolaryngology | Ulysses Genao MD | | | 2019 | Visit | | [address] | | | | | | [address] [place] | | | | | | [place] [address] | | | | | | [phone] | | | | | | | | +--------+---------+ + + + | 02/15/ | Office | Internal Medicine | Alanis, | | | 2019 | Visit | | MD [place]rona | | | | | | [address] [place] | | | | | | [place] [address] | | | | | | [phone] | | | | | | | | +--------+---------+ + + + documented as of this encounter Visit Diagnoses + + | Diagnosis | + + | No Show - Primary Code used for vists where the patient is not seen | + + documented in this encounter"
--- OUTSIDE RECORDS SUMMARY | ~2019-12-13 | XMS | Encounter Summary ---
Demographics + + + | Address | [address] | | | [place] [address] | + + + | Home Phone [...] Providers + +------+ + | Care Animal Impersonator Name | Role | Phone | + [...] + | / | Office | [facility] Comprehensive | Delfina Molina, | LBP (Low Back Pain); | | 2007 | Visit | Pain Center at | ANP | Spondylosis with | | | | [facility] | | Myelopathy, Lumbar | | | | [address] | | Region; Herniated | | | | Mailcode: CH15P | | Lumbar | | | | [place] [facility] | | Intervertebral Disc | | | | and Healing, | | L4-5; Fibromyalgia | | | | Building | | syndrome 729.1; | | | | Floor [place], [place] | | Bilateral Knee Pain; | | | | [address] | | Arthroplasty of the | | | | [phone] | | Left Knee; DJD | | [...] Meehan is a 47 y.o. female [facility] Comprehensive Pain [...] drawing has be completed, which I reviewed. FIELD APPRAISER Brief Pain Inventory: Right Now: 9 Least [...] Physical therapy: Two days per week in [place] knees and both legs, shoulders and back [...] social history. Pending 08/30/07 DR Cadet in [facility]: right knee arthroplasty. Urology evaluation for ur [...] Time Resulting Agency 05/25/2007 4:06 PM [facility] DEPARTMENT OF RADIOLOGY Component Results MR [...] with any concerns or questions. DELFINA MOLINA [facility] Mail code CH 4P [facility] [address] [facility] [address] Ailyn Bello 08/13/19 08 [...]
--- OUTSIDE RECORDS SUMMARY | ~2019-12-13 | XMS | Encounter Summary ---
Demographics + + + | Address | [address] | | | [place] [address] | + + + | Home Phone [...] Team Providers + +------+ + | Care Reimbursement Rep Name | Role | Phone | [...] pneumonia, | | | | Avjennifer Mailcode: [facility] | [address] | wants to get back on | | | | [facility] | [place], [place] | vitamins) | | | | and Healing, | [address] | | | | | [place] [address] [facility] | [phone] | | | | | Floor [place], [place] | | | | | | [address] | | | | | | [phone] | | | +--------+ + + + [...]
--- OUTSIDE RECORDS SUMMARY | ~2019-12-13 | XMS | Encounter Summary ---
Demographics + + + | Address | [address] | | | [place] [address] | + + + | Home Phone [...] Providers + +------+ + | Care Product Sales Representative Name | Role | Phone [...] + + | 03/27/ | Telephone | [facility] INTERNAL | Alanis, | Hip Pain | | 2016 | | MEDICINE [address] | MD John | | | | | [place], | [address] [facility] | | | | | [place] [address] | [place] [address] | | | | | [phone] | [phone] | | | | | | | [...] [email or web address] cecilia Umanzor - Yue Mitchell Senior Paralegal - 04/03/2017 3:04 PM PDT Addended by: YUE FELDMAN on: 04/03/2017 15:04 Modules accepted: Orders Telephone Encounter - Yue Mitchell Senior Paralegal - 04/03/2017 2:57 PM PDTSpoke to patient and she is not doing better, She continues to have pain in her left hip and autumn d like to have an x-ray order sent to [facility] in [place]. Order cued up.Electronica lly signed by Destiney [...] Zpack has cleared it up [facility] in [place] is Pharmacy Had fall 4 months ago and used her life alert button but no one came. She had a big bruise at the time and continues to have pain in left hip Tender to touch and can't even lay on that side with out increased discomfort. Is requesting an xray to [facility] in [place] Please to advise elephone Encounter - Tuan Snider - 03/27/2017 2:22 PM PDTContact/Caller: Belinda Contact Number: [phone] Provider/Nurse: Emmy Reason for Call: Pt calling in stated they believe they are getting an infection on left ea r lobe. Wondering if they could get prescription for that. Pt also calling in would like an x-ray to be ordered for left hip over in [place]. Please advise. Last Appointment: 02/23/17 Next Appointment: [...] | | | | | [place] [address] | | | | | | [phone] | | | | | | | | +--------+---------+ + + + | 12/20/ | Office | Otolaryngology | Ulysses Genao MD | | | 2019 | Visit | | [address] | | | | | | [address] [place] | | | | | | [place] [address] | | | | | | [phone] | | | | | | | | +--------+---------+ + + + | 02/15/ | Office | Internal Medicine | Alanis, | | | 2019 | Visit | | MD John | | | | | | [address] [place] | | | | | | [place] [address] | | | | | | [phone] | | | | | | | [...]
--- OUTSIDE RECORDS SUMMARY | ~2019-12-13 | XMS | Encounter Summary ---
Demographics + + + | Address | [address] | | | [place] [address] | + + + | Home Phone [...] Team Providers + +------+ + | Care Quiller Operator Name | Role | Phone | [...] 05/28/ | Office | Pain Center at [facility] | Lukasz Charles, | Major Depressive | | 2006 | Visit | [address] | PhD [address] | Disorder, Recurrent | | | | Mailcode: CH15P | [place], [place] | Episode, Moderate | | | | [place] [facility] | [address] | ([facility]); LBP (Low Back | | | | and Healing, | [phone] | Pain); DJD | | | | | | (Degenerative Joint | | | | Floor [place], [place] | | Disease) of Knee; | | | | [address] | | Other Pain Disorders | | | | [phone] | | Related to | | | [...] she is having some acute illness. Diagnosis: [place] I: 1. (296.32) Major depressive disorder, recurrent, moderate. 2. (309.24) Adjustment disorder with anxiety. 3. 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 [place] II: Deferred [place] III: abdominal pain, migraine headache, low back pain. [place] IV: low finances [place] V: GAF 55-60 Plan: Return with next medical follow-up appointment. Check mood, knee surgery, relaxation, acti vity, distraction. Continue cognitive/behavioral therapy. Total time spent with patient was approximately 45 minutes. LUKASZ CHARLES [facility] Comprehensive Pain Center [address] [facility], 4th [place] [address] documented in this encount er Plan of [...]
--- OUTSIDE RECORDS SUMMARY | ~2019-12-13 | XMS | Encounter Summary ---
Demographics + + + | Address | [address] | | | [place] [address] | + + + | Home Phone [...] Team Providers + +------+ + | Care Cake Press Operator Helper Name | Role | Phone [...] [address] | | | | | | [place], [place] | | | | | | [address] | | | | | | [phone] | | | +--------+ + + + [...]
--- OUTSIDE RECORDS SUMMARY | ~2019-12-13 | XMS | Encounter Summary ---
Demographics + + + | Address | [address] | | | [place] [address] | + + + | Home Phone [...] Providers + +------+ + | Care C D Stripper Name | Role | Phone | [...] | 2006 | TRANSCRIPTI | Faculty at [employer] | [address] [facility] | QUESTIONNAIRE | | | ON | for Health and | [facility] [place], [place] | | | | | Healing [address] | [address] | | | | | Bethanie Mailcode: | [phone] | | | | | CH12A [facility] | | | | | | Health and Healing, | | | | | | [facility] | | | | | | [place], [place] | | | | | | [address] | | | | | | [phone] | | | +--------+ + + + [...]
--- OUTSIDE RECORDS SUMMARY | ~2019-12-13 | XMS | Encounter Summary ---
Demographics + + + | Address | [address] | | | [place] [address] | + + + | Home Phone [...] Providers + +------+ + | Care Food Assembler Commissary Kitchen Name | Role | Phone | + [...] as of this encounter Progress Notes Interface, Plate Glass Installer Helper In - 01/11/2005 6:26 PM PDT Referred [...] blindness. History was obtained from the patient, [facility] medical records, and two magnetic resonance scans [...] any point. She has been seen her filling layer up in [facility], Dr. Lc Renteria, who by [...] fibromyalgia. SOCIAL HISTORY: Patient lives in [facility] with her eldest son. She [...] acute distress. She does have a right-sided Bahraini crutch which she uses to enter and [...] biceps, triceps, wrist extensors, finger extensors, hand obstetrics specialist, hip flexors and extensors, and ankle, plantar, and dorsiflexors as well as knee flexors and extensors. There is no pronator drift. Reflexes are 2+ and symmetrical at the biceps, triceps, brachioradialis, patellar, and ankle regions. Toes are downgoing to plantar stimulation. Light touch and tuning fork is within normal limits in the lower extremities. Pxpmyy-el-fynl and fine finger movements are within normal [...] Amin M.D., Neurophthalmology cc: CRYSTAL CARTER M.D. [facility] [address] [facility]. [facility] [id number] signed by Interface, Plate Glass Installer Helper In at 2004 6:26 PM PDTdocumented in this encounter Plan of Treatment Not on filedocumented as of this encounter Visit Diagnoses Not on filedocumented in this encounter"
--- OUTSIDE RECORDS SUMMARY | ~2019-12-13 | XMS | Encounter Summary ---
Demographics + + + | Address | [address] | | | [place] [address] | + + + | Home Phone [...] + +------+ + | Care Registered Nurse Ambulatory Name | Role | Phone | + [...] as of this encounter Progress Notes Interface, Stitcher Feeder In - 09/13/2005 2:06 AM PST [id number] [facility] Date: 12/12/2004 Clinic: Endocrinology PHONE CONTACT NOTE The patient called me today after having surgery last week here at [facility]. Her concern was the development [...] cushion which I have ordered today through [employer], phone #[phone] and fax #[phone]. Today, the patient will monitor the decubiti closely and will be in touch with myself and her other physician depending on the progress. She also still has [address], which may be removed in one or two weeks when she returns to the Surgery Clinic at [facility]. Beto Meeks M.D. PD / HS [id number] / [id number] / [id number] / [id number] cc: Chris Padgett M.D. Electronically signed by Beto eMeks 09-12-2005 02:22:31 AM documented i n this encounter Plan of Treatment Not on filedocumented as of this encounter Visit Diagnoses Not on filedocumented in this encounter"
--- OUTSIDE RECORDS SUMMARY | ~2019-12-13 | XMS | Encounter Summary ---
Demographics + + + | Address | [address] | | | [place] [address] | + + + | Home Phone [...] Providers + +------+ + | Care Mold Loft Worker Name | Role | Phone | + +------+ + | Petrona Thapa | PCP | | | MD | | | + +------+ + Encounter Details +--------+ + + + + | Date | Type | Department | Care Team | Description | +--------+ + + + + | [facility] | Alanis, | Impingement syndrome | | 2018 | Encounter | [facility] [address] [facility] | MD [place]rona | of right shoulder | | | | [address] [place] | [address] [facility] | | | | | [place], [place] | [place] [address] | | | | | [address] | [phone] | | | | | [phone] | | | +--------+ + + + [...] | | | | | [place] [address] | | | | | | [phone] | | | | | | | | +--------+---------+ + + + | 12/20/ | Office | Otolaryngology | Ulysses Genao MD | | | 2019 | Visit | | [address] | | | | | | [address] [place] | | | | | | [place] [address] | | | | | | [phone] | | | | | | | | +--------+---------+ + + + | 02/15/ | Office | Internal Medicine | Alanis, | | | 2019 | Visit | | MD [place]rona | | | | | | [address] [place] | | | | | | [place] [address] | | | | | | [phone] | | | | | | | [...]
--- OUTSIDE RECORDS SUMMARY | ~2019-12-13 | XMS | Encounter Summary ---
Demographics + + + | Address | [address] | | | [place] [address] | + + + | Home Phone [...] Providers + +------+ + | Care Metal Welder Name | Role | Phone | [...] | Visit | [facility] [address] | CARPENTER MOLD | Disc Disease; | | | | [address] | | Fibromyalgia | | | | Physician's | | | | | | Pavilion, 4th Floor | | | | | | [place], [place] | | | | | | [address] | | | | | | [phone] | | | +--------+---------+ + + + [...] the LBP is gone. Dr. Ricky smith Coventry was her surgeon. She think s a [...] 300 mg) by oral route once daily nscrwmcbjs-zuzqpcuwwmkek-zcxrtzud (FIORICET) 50-325-40 mg Oral Tablet take 2 [...]
--- OUTSIDE RECORDS SUMMARY | ~2019-12-13 | XMS | Encounter Summary ---
Demographics + + + | Address | [address] | | | [place] [address] | + + + | Home Phone [...] Team Providers + +------+ + | Care Thermodynamics Teacher Name | Role | Phone | [...] 04/08/ | Telephone | [facility] Comprehensive | Rosi Antonio, | | | 2012 | | Pain Center at | ANP | | | | | [facility] | | | | | | [address] | | | | | | Mailcode: CH15P | | | | | | [facility] | | | | | | and Healing, | | | | | | | | | | | | Floor [place], [place] | | | | | | [address] | | | | | | [phone] | | | +--------+ + + + [...]
--- OUTSIDE RECORDS SUMMARY | ~2019-12-13 | XMS | Encounter Summary ---
Demographics + + + | Address | [address] | | | [place] [address] | + + + | Home Phone [...] Team Providers + +------+ + | Care Cryptography Teacher Name | Role | Phone | + +------+ + | Pedrito Gutierrez MD | PCP | | + +------+ + Encounter Details +--------+ + + + + | Date | Type | Department | Care Team | Description | +--------+ + + + + | 08/22/ | Hospital | Radiology/Imaging | | | | 2008 | Encounter | Lab at [facility] | | | | | | [address] Mailcode: | | | | | | CH3G [facility] | | | | | | Health and Healing, | | | | | | [place] [address], | | | | | | Floor [place], [place] | | | | | | [address] | | | | | | [phone] | | | +--------+ + + + [...]
--- OUTSIDE RECORDS SUMMARY | ~2019-12-13 | XMS | Encounter Summary ---
Demographics + + + | Address | [address] | | | [place] [address] | + + + | Home Phone [...] Providers + +------+ + | Care Sales Branch Manager Name | Role | Phone | [...] [address] | | | | | [facility] | [place], [place] | | | | | [address] | [address] | | | | | [address] | [phone] | | | | | [facility] | | | | | | Physician's | | | | | | Pavilion [place], | | | | | | [place] [address] | | | | | | [phone] | | | +--------+--------+ + + + [...]
--- OUTSIDE RECORDS SUMMARY | ~2019-12-13 | XMS | Encounter Summary ---
Demographics + + + | Address | [address] | | | [place] [address] | + + + | Home Phone [...] Providers + +------+ + | Care Strip Tank Tender Name | Role | Phone | [...] | | | | [address] Physician's | [place], [place] | | | | | [address] | [address] | | | | | [place], [place] | [phone] | | | | | [address] | | | | | | [phone] | | | +--------+ + + + [...]
--- OUTSIDE RECORDS SUMMARY | ~2019-12-13 | XMS | Encounter Summary ---
Demographics + + + | Address | [address] | | | [place] [address] | + + + | Home Phone [...] Providers + +------+ + | Care Branch Sales Manager Name | Role | Phone [...] Pavilion | | | | | | [place], [place] | | | | | | [address] | | | | | | [phone] | | | +--------+ + + + [...]
--- OUTSIDE RECORDS SUMMARY | ~2019-12-13 | XMS | Encounter Summary ---
Demographics + + + | Address | [address] | | | [place] [address] | + + + | Home Phone [...] Providers + +------+ + | Care Acid Patroller Name | Role | Phone | + [...] + + | 08/19/ | Telephone | [facility] | Alanis, | Cold-like Symptoms | | 2018 | | MEDICINE [address] | MD Petrona | | | | | [place], | [address] | | | | | [place] [address] | [place] [address] | | | | | [phone] | [phone] | | | | | | | [...] call for advise from nurse. Please call [phone] . documented in this encounter Plan of Treatment +--------+---------+ + + + | Date | Type | Specialty | Care Team | Description | +--------+---------+ + + + | 12/20/ | Office | Audiology | Elisabet Munson MS | | | 2019 | Visit | | [facility] [address] | | | | | [address] [place] | | | | | | [place] [address] | | | | | | [phone] | | | | | | | | +--------+---------+ + + + | 12/20/ | Office | Otolaryngology | Ulysses Genao MD | | | 2019 | Visit | | [address] | | | | | | [address] [place] | | | | | | [place] [address] | | | | | | [phone] | | | | | | | | +--------+---------+ + + + | 02/15/ | Office | Internal Medicine | Alanis, | | | 2019 | Visit | | MD Petrona | | | | | | [address] | | | | | | [place] [address] | | | | | | [phone] | | | | | | | | +--------+---------+ + + + documented as of this encounter Visit Diagnoses Not on filedocumented in this encounter"
--- OUTSIDE RECORDS SUMMARY | ~2019-12-13 | XMS | Encounter Summary ---
Demographics + + + | Address | [address] | | | [place] [address] | + + + | Home Phone [...] Providers + +------+ + | Care Trimmer Loader Name | Role | Phone | [...] | | | Mailcode: PV240 | [place] [address] | | | | | [facility] | [phone] | | | | | [place], [place] | | | | | | [address] | | | | | | [phone] | | | +--------+ + + + [...]
--- OUTSIDE RECORDS SUMMARY | ~2019-12-13 | XMS | Encounter Summary ---
Demographics + + + | Address | [address] | | | [place] [address] | + + + | Home Phone [...] Team Providers + +------+ + | Care Rehab Aide Name | Role | Phone | [...] + + | 05/29/ | Office | [facility] Comprehensive | Delfina Molina, | Chronic Abdominal | | 2005 | Visit | Pain Center at | ANP | Pain; Cervical Pain; | | | | [facility] | | Joint pain 719.40; | | | | [address] | | Depression | | | | Mailcode: CH15P | | | | | | [facility] | | | | | | and Healing, | | | | | | Building | | | | | | Floor [place], [place] | | | | | | [address] | | | | | | [phone] | | | +--------+---------+ + + + [...] Physical Therapy evaluation here at the [facility] in [place]. 3. Patient will be referred for a Psychology evaluation here at the [facility]. 4. Following the completion of these evaluations, [...] Belinda Meehan is a 46 y.o. female [id number] Chief Complaint: Patient presents with: Pain - [...] as PAIN MEDICINES: Opioids: Hydrocodone (Vicodin, Lortab, [place]): Why stopped?: don't remember. Came off due [...] HX SALPINGO-OOPHORECTOMY COLONOSCOPY Comment: 03/2006 HX TONSILLECTOMY [place] D&C AFTER DELIVERY [place] INJECT TRIGGER POINT, 1 OR 2 Family [...] a Physical Therapy evaluation here at the [facility]. 3. Patient will be referred for a Psychology evaluation here at the [facility] er. 4. Following the completion of [...] you for referring Belinda Meehan to the [facility] [place] for a chronic pain management evaluation. I trust that you will find the recomm endations satisfactory and that you will be able to implement these in the care of your mehreen ent. Should you have any concerns or questions, please contact me, I would be happy to add ress those with you. DELFINA MOLINA [facility] [place] Mail code CH 4P [place] [facility] [address] [place] [address] metimothy Tasha - 05/29/2006 1:51 PM [...] drinking? no -Do you ever drink an eye-generating station mechanic in the morning to relieve the shakes? [...] stressful life experiences recently? yes If yes, explain:site specialist brigida pain GOALS AND EXPECTATIONS 23. What do you expect from our pain program? Help in coping with the pain 24. What types of treatment do you expect from your visits to the [facility] ? Stress Management documented in [...]
--- OUTSIDE RECORDS SUMMARY | ~2019-12-13 | XMS | Encounter Summary ---
Demographics + + + | Address | [address] | | | [place] [address] | + + + | Home Phone [...] Team Providers + +------+ + | Care Language Assistant Name | Role | Phone | [...] | Transcriptions | + + | Interface, Technical Support Manager In - 08/06/2005 2:06 AM PST | | [id number] | | [id number] GEOVANNI Barnes | | | | Date: 07/25/2005 | | | | Attending Surgeon: Chris Padgett M.D. | | | | Raise Driller(s): Bandar Langley M.D. | | | | [...] | | DT / HS | | [id number] / [id number] / [id number] / [id number] | | | | | | | | | | | | Electronically signed by Chris Padgett 08-05-2005 12:36:41 PM | + + documented in this encounter Visit Diagnoses Not on filedocumented in this encounter"
--- OUTSIDE RECORDS SUMMARY | ~2019-12-13 | XMS | Encounter Summary ---
Demographics + + + | Address | [address] | | | [place] [address] | + + + | Home Phone [...] Team Providers + +------+ + | Care Modeler Name | Role | Phone | [...] + + | 09/16/ | Telephone | [facility] | Miranda Lambert, | Memory loss | | 2006 | | Pain Center at | ANP | | | | | [facility] | | | | | | [address] | | | | | | Mailcode: CH15P | | | | | | [facility] | | | | | | and Healing, | | | | | | Building | | | | | | Floor [place], [place] | | | | | | [address] | | | | | | [phone] | | | +--------+ + + + [...]
--- OUTSIDE RECORDS SUMMARY | ~2019-12-13 | XMS | Encounter Summary ---
Demographics + + + | Address | [address] | | | [place] [address] | + + + | Home Phone [...] Team Providers + +------+ + | Care Grain Processor Name | Role | Phone | + +------+ + | Petrona Thapa | PCP | | | MD | | | + +------+ + Reason for Visit + +--------+ + | Reason | Onset | Comments | | | Date | | + +--------+ + | Foot Pain | 01/31/ | | | | 2018 | | + +--------+ + Encounter Details +--------+ + + + + | Date | Type | Department | Care Team | Description | +--------+ + + + + | 01/31/ | Telephone | [facility] | Alanis, | Foot Pain | | 2018 | | MEDICINE [address] | MD Petrona | | | | | [place], | [address] [facility] | | | | | [place] [address] | [place] [address] | | | | | [phone] | [phone] | | | | | | | [...] Telephone Encounter - Maggie Montoya LPN - 01/31/2019 5:08 PM PDTPatient states was seen a nd placed on antibiotics and wound was cultured, cleaned and dressed. Patient will be return ing in a few days to get dressing changed. FYI elephone Encounter - Bob Melgar - 01/31/2019 4:55 PM PD TPatient called back please call. elephone Encounter - Maggie Montoya LPN - 01/31/2019 2:56 PM PDTPatient sta nader going to see a local MD there and will call back if any further questions/concernsElectr onically signed by Maggie Montoya LPN at 01/31/2019 2:57 PM PDTTelephone Encounter - Petrona Thompson MD - 01/31/2019 2:08 PM PDTBest thing would be for her to be seen eit her here or at urgent care closer to her home to determine what type of treatment she needs for this. elephone Encounter - Sia Bai - 01/31/2019 7:24 AM PDTPatient is calling in because le ft foot is bothering her stated she had a blister on bottom of foot that popped and now top of foot is red looks like its infected and has a lot of pain not able to bear weight on it. Please Advise documented in this encounter Plan [...] | | | | | [place] [address] | | | | | | [phone] | | | | | | | | +--------+---------+ + + + | 12/20/ | Office | Otolaryngology | Ulysses Genao MD | | 2019 | Visit | | [address] | | | | | | [address] [place] | | | | | | [place] [address] | | | | | | [phone] | | | | | | | | +--------+---------+ + + + | 02/15/ | Office | Internal Medicine | Alanis, | | | 2019 | Visit | | MD Petrona | | | | | | [address] [place] | | | | | | [place] [address] | | | | | | [phone] | | | | | | | | +--------+---------+ + + + documented as of this encounter Visit Diagnoses Not on filedocumented in this encounter"
--- OUTSIDE RECORDS SUMMARY | ~2019-12-13 | XMS | Encounter Summary ---
Demographics + + + | Address | [address] | | | [place] [address] | + + + | Home Phone [...] Providers + +------+ + | Care County Historian Name | Role | Phone | [...] | 2006 | Visit | Center at [facility] | [address] [facility] | Myelopathy, Lumbar | | | | [place] [address] [place], | Region; Neck Pain; | | | | [address] [place] Mailcode: | [place] [address] | Herniated Lumbar | | | | CH15P [facility] for | | Intervertebral Disc | | | | Health and Healing, | | L4-5; Fibromyalgia | | | | Building | | syndrome 729.1; NO | | | | Floor [place], [place] | | DIAGNOSIS RECEIVED | | | | [address] | | | | | | [phone] | | | +--------+---------+ + + + [...] Date: December 02, 2006 Patient: Belinda Meehan, [id number], 1960 I agree with the proposed Physical Therapy Treatment Plan. Provider: DELFINA BUNDY elfina Molina - 007 11:31 AM PDTThis encounter was opened in error. Please disregard this note. athalia Arora - 007 12:26 PM PDT PROGRESS NOTE: Physical Therapy Medicare Progress Note Date: 10/07/2006 Belinda Meehan [id number]. 1960 Start of Care: 06/23/2006 Referring Provider: [...] dial meniscal tear. Patient continues walking at [employer] on a daily basis, (when she is no t in [place] for appts), 30-40 minutes, and her HEP [...] ended: 115 Nathalia Arora, Physical Therapist License #[id number] documented in this encoun ter Plan of [...]
--- OUTSIDE RECORDS SUMMARY | ~2019-12-13 | XMS | Encounter Summary ---
Demographics + + + | Address | [address] | | | [place] [address] | + + + | Home Phone [...] Providers + +------+ + | Care Blow Machine Tender Starch Spraying Name | Role | Phone | + [...] | | | [facility] | [place], [place] | | | | | [address] | [address] | | | | | [address] | [phone] | | | | | [facility] | | | | | | Physician's | | | | | | Pavilion [place], | | | | | | [place] [address] | | | | | | [phone] | | | +--------+ + + + [...]
--- OUTSIDE RECORDS SUMMARY | ~2019-12-13 | XMS | Encounter Summary ---
Demographics + + + | Address | [address] | | | [place] [address] | + + + | Home Phone [...] Team Providers + +------+ + | Care Snap Attacher Name | Role | Phone | [...] | | 2006 | | [facility] at [place] | [address] [place] | | | | | for [facility] and | [place], [place] | | | | | Healing [address] | [address] | | | | | Ave Mailcode: | [phone] | | | | | CH[address]A [facility] | | | | | | Health and Healing, | | | | | | [facility] | | | | | | [place], [place] | | | | | | [address] | | | | | | [phone] | | | +--------+ + + + [...]
--- OUTSIDE RECORDS SUMMARY | ~2019-12-13 | XMS | Encounter Summary ---
Demographics + + + | Address | [address] | | | [place] [address] [...] Providers + +------+ + | Care Certified Drug Counselor Name | Role | Phone | + +------+ + | Petrona Thapa | PCP | | | MD | | | + +------+ + Reason for Visit + +--------+ + | Reason | Onset | Comments | | | Date | | + +--------+ + | Results, Imaging | 03/02/ | outside imaging report from [facility] | | | 2018 | | [...] (outside imaging | | | | [place], | [address] [place] | report from St. | | | | [place] [address] | [place] [address] | [facility]) | | | | [phone] | [phone] | | | | | | | [...] - 03/02/2019 5:43 PM PDTReceived US abdominal [facility] results showing fatty liver. Patient notified and [...] | | | | | [place] [address] | | | | | | [phone] | | | | | | | | +--------+---------+ + + + | 12/20/ | Office | Otolaryngology | Ulysses Genao MD | | | 2019 | Visit | | [address] | | | | | | [address] [place] | | | | | | [place] [address] | | | | | | [phone] | | | | | | | | +--------+---------+ + + + | 02/15/ | Office | Internal Medicine | Alanis, | | | 2020 | Visit | | MD Petrona | | | | | | [address] [place] | | | | | | [place] [address] | | | | | | [phone] | | | | | | | | +--------+---------+ + + + documented as of this encounter Visit Diagnoses Not on filedocumented in this encounter"
--- OUTSIDE RECORDS SUMMARY | ~2019-12-13 | XMS | Encounter Summary ---
Demographics + + + | Address | [address] | | | [place] [address] | + + + | Home Phone [...] Pain | 02/25/ | | | | 2018 | | +--------+--------+ + Encounter Details +--------+ + + + + | Date | Type | Department | Care Team | Description | +--------+ + + + + | 02/25/ | Telephone | [facility] INTER[facility] | Alanis, | Pain | | 2018 | | MEDICINE [address] | MD Petrona | | | | | [place], | [address] [facility] | | | | | [place] [address] | [place] [address] | | | | | [phone] | [phone] | | | | | | | [...] AM Yeni SHEEHAN patient needs to s telida medical attention for evaluation for back pain at the urgent care/ED. Patient understand s and accepts elephone Encounter - Sia Bai 02/25/2019 8:12 AM PDTPatient is calling in [...] | | | | | [place] [address] | | | | | | [phone] | | | | | | | | +--------+---------+ + + + | 12/20/ | Office | Otolaryngology | Ulysses Genao MD | | | 2019 | Visit | | [address] | | | | | | [address] [place] | | | | | | [place] [address] | | | | | | [phone] | | | | | | | | +--------+---------+ + + + | 02/15/ | Office | Internal Medicine | Alanis, | | | 2019 | Visit | | MD Petrona | | | | | | [address] [place] | | | | | | [place] [address] | | | | | | [phone] | | | | | | | | +--------+---------+ + + + documented as of this encounter Visit Diagnoses Not on filedocumented in this encounter"
--- OUTSIDE RECORDS SUMMARY | ~2019-12-13 | XMS | Encounter Summary ---
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 1960 Start of Care: 06/23/2006 Referring Provider: [...] and when she is finished at the [facility] with physical therapy advised to become [...]
--- OUTSIDE RECORDS SUMMARY | ~2019-12-13 | XMS | Encounter Summary ---
Demographics + + + | Address | [address] | | | [place] [address] | + + + | Home Phone [...] Providers + +------+ + | Care Egg Candler Name | Role | Phone | + [...] | | | [facility] | [place], [place] | | | | | [address] | [address] | | | | | [address] | [phone] | | | | | [facility] | | | | | | Physician's | | | | | | Pavilion [place], | | | | | | [place] [address] | | | | | | [phone] | | | +--------+ + + + [...]
--- OUTSIDE RECORDS SUMMARY | ~2019-12-13 | XMS | Encounter Summary ---
Demographics + + + | Address | [address] | | | [place] [address] | + + + | Home Phone [...] Team Providers + +------+ + | Care Cognos Name | Role | Phone | + +------+ + | Maria Esther Cintron MD | PCP | | + +------+ + Encounter Details +--------+ + + + + | Date | Type | Department | Care Team | Description | +--------+ + + + + | 09/21/ | Telephone | Digestive Health | Chris Padgett, | | | 2008 | | [place] [address] | [address] [facility] | | | | | [place] Mailcode: CH4S | [address] | | | | | Center for Health | [place], [place] | | | | | and Healing, | [address] | | | | | Building , 6th | [phone] | | | | | Floor [place], [place] | | | | | | [address] | | | | | | [phone] | | | +--------+ + + + [...]
--- OUTSIDE RECORDS SUMMARY | ~2019-12-13 | XMS | Encounter Summary ---
Demographics + + + | Address | [address] | | | [place] [address] | + + + | Home Phone [...] Team Providers + +------+ + | Care Mining Analyst Name | Role | Phone | [...] 10/28/ | Office | Pain Center at [facility] | Lukasz Charles, | Major Depressive | | 2006 | Visit | [address] | PhD [address] | Disorder, Recurrent | | | | Mailcode: CH15P | [place], [place] | Episode, Moderate | | | | [place] [facility] | [address] | ([facility]); Neck Pain; | | | | and Healing, | [phone] | Herniated Lumbar | | | | Building | | Intervertebral Disc | | | | Floor [place], [place] | | L4-5; 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 She has been doing cross stitch [...] She has using good self-care skills. Diagnosis: [place] I: 1. (296.32) Major depressive disorder, recurrent, moderate. 2. (309.24) Adjustment disorder with anxiety. 3. 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 [place] II: Deferred [place] III: abdominal pain, migraine headache, low back pain. [place] IV: low finances [place] V: GAF 50 Plan: Return in 2 weeks. Check preparation for move and for niece's visit, results of orthopedic visit. Check pacing, relaxation, activity, distraction. Continue cognitive/behavioral the rapy. Total time spent with patient was approximately 45 minutes. LUKASZ CHARLES [facility] [address] [facility], 4th [place] [address] documented in this encount er Plan of [...]
--- OUTSIDE RECORDS SUMMARY | ~2019-12-13 | XMS | Encounter Summary ---
Demographics + + + | Address | [address] | | | [place] [address] | + + + | Home Phone [...] Team Providers + +------+ + | Care B2B Account Executive Name | Role | Phone | + +------+ + | Petrona Thapa | PCP | | | MD | | | + +------+ + Reason for Visit + +--------+ + | Reason | Onset | Comments | | | Date | | + +--------+ + | Referral | 05/18/ | | | | 2017 | | + +--------+ + Encounter Details +--------+ + + + + | Date | Type | Department | Care Team | Description | +--------+ + + + + | 05/18/ | Telephone | [facility] | Alanis, | Referral | | 2017 | | MEDICINE [address] | MD Petrona | | | | | [place], | [address] [facility] | | | | | [place] [address] | [place] [address] | | | | | [phone] | [phone] | | | | | | | [...] Telephone Encounter - Maggie Montoya LPN - 05/18/2018 2:22 PM PSTPatient notified that ref erral resubmitted to [facility] in [place], [place]. Patient will call to schedule appt in the next few days P STTelephone Encounter - Adriana Cantor - 05/18/2018 1:44 PM PSTPatient called wanting t o speak with the nurse. Patient stated a referral was placed for her for an MRI but she was calling to see if it had been switched so she could have it done in [place]. Please call patient to advise, . documented [...] | | | | | [place] [address] | | | | | | [phone] | | | | | | | | +--------+---------+ + + + | 12/20/ | Office | Otolaryngology | Ulysses Genao MD | | | 2019 | Visit | | [address] | | | | | | [address] [place] | | | | | | [place], [place] [address] | | | | | | [phone] | | | | | | | | +--------+---------+ + + + | 02/15/ | Office | Internal Medicine | Alanis, | | | 2019 | Visit | | MD Petrona | | | | | | [address] [place] | | | | | | [place], [place] [address] | | | | | | [phone] | | | | | | | | +--------+---------+ + + + documented as of this encounter Visit Diagnoses Not on filedocumented in this encounter"
--- OUTSIDE RECORDS SUMMARY | ~2019-12-13 | XMS | Encounter Summary ---
Demographics + + + | Address | [address] | | | [place] [address] [...] Providers + +------+ + | Care Site Safety Manager Name | Role | Phone [...] | | | | | | | [place], [place] | | | | | | | [address] | | | | | | | Phone: | | | | | | | [phone] | | | | | | | Fax: | | | | | | | [phone] | +--------+--------+ + + + + Encounter Details +--------+---------+ + + + | Date | Type | Department | Care Team | Description | +--------+---------+ + + + | 01/05/ | Office | Digestive Health | Eliezer Ruano, | Follow-Up | | 2007 | Visit | Center [address] | [address] [facility] | Examination | | | | [place] Mailcode: CH4S | [address] | Following Surgery | | | | [facility] | [place], [place] | (Primary Dx) | | | | and Healing, | [address] | | | | | Building | [phone] | | | | | Floor [place], [place] | | | | | | [address] | | | | | | [phone] | | | +--------+---------+ + + + [...] and plan of care. ELIEZER RUANO MD [facility] [address] [place] [address] And [facility], [address] [place] [address] Tejas Trevino - 01/05 1:54 PM PDTS: Pt is here one week postop lysis of adhesions. She is doing well. She i s still having some pain. PE: Midline incision closed with reshma. [place] removed. There was a small opening of [...]
--- OUTSIDE RECORDS SUMMARY | ~2019-12-13 | XMS | Encounter Summary ---
Demographics + + + | Address | [address] | | | [place] [address] | + + + | Home Phone [...] Providers + +------+ + | Care Soda Dispenser Name | Role | Phone | + [...] | | | [facility] | [place], [place] | | | | | [address] | [address] | | | | | [address] | [phone] | | | | | Physician's | | | | | | Pavilion, 1st floor | | | | | | [place], [place] | | | | | | [address] | | | | | | [phone] | | | +--------+ + + + [...]
--- OUTSIDE RECORDS SUMMARY | ~2019-12-13 | XMS | Encounter Summary ---
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 Diagnosis: Wright[place] I: 1. (296.32) Major depressive disorder, recurrent, moderate. 2. (309.24) Adjustment disorder with anxiety. 3. 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 [place] II: Deferred Wrights III: abdominal pain, migraine headache, low back pain. Wrights IV: low finances Wrights V: GAF 50 Plan: Return in 2 weeks. Schedule 4 follow-up appointments. Check preparation for move and for niece's visit. Check [employer] gym, pacing, relaxation, activity, distraction. Check "Managin g Pain..." book. Continue cognitive/behavioral therapy. Total time spent with patient was approximately 45 minutes. LUKASZ CHARLES PHD [facility] [address] [facility] [place] [address] documented in this encount er Plan of [...] | | | | ([facility]) Spondylosis | | | | [...]
--- OUTSIDE RECORDS SUMMARY | ~2019-12-13 | XMS | Encounter Summary ---
Demographics + + + | Address | [address] | | | [place] [address] | + + + | Home Phone [...] Providers + +------+ + | Care Front Counter Attendant Name | Role | Phone | [...] + + | 03/19/ | Telephone | [facility] Division of | Carlos Arreola, | Erroneous Encounter | | 2005 | | Gastroenterology/Hep | [address] | - Disregard (ERROR) | | | | atology [address] | Naeem Mcrae | | | | | [address] | [place] [address] | | | | | Mailcode: PV310 | [phone] | | | | | [facility] | | | | | | [address] | | | | | | [place], [place] | | | | | | [address] | | | | | | [phone] | | | +--------+ + + + [...]
--- OUTSIDE RECORDS SUMMARY | ~2019-12-13 | XMS | Encounter Summary ---
Demographics + + + | Address | [address] | | | [place] [address] | + + + | Home Phone [...] Team Providers + +------+ + | Care Diversified Crops I Farmworker Name | Role | Phone [...] Rom results of | | | | [facility] | | several radiology | | | | [address] | | studies) | | | | Mailcode: CH15P | | | | | | [facility] | | | | | | and Healing, | | | | | | Building | | | | | | Floor [place], [place] | | | | | | [address] | | | | | | [phone] | | | +--------+ + + + [...] | + +--------+ + + + | OR MRI LOWER EXTREM | Routin | 08/22/2005 [...] | + +--------+ + + + | OR MRI LOWER EXTREM | Routin | 03/05/2005 [...] + | NAME: BELINDA MEEHAN MR #: [id number] | [facility] | | DATE OF EXAM: [...] Armaan Rivera | | | H : [id number] : 1442 Approved By: Radiologist: | | + + + + + + + + | Performing | Address | City/State/Zipcode | Phone Number | | Organization | | | | + + + + + | [facility] | [address] | [place], [place] | | | [facility] | [address] | [address] | | | TESTS | | | | + + + + + | [facility] | [address] | [place], [place] | | | TESTS | [address] | [address] | | + + + + + [...] [facility] | [address] | [place], [place] | | | [facility] | [facility] | [address] | | | TESTS | | | | + + + + + | [facility] | [address] | [place], [place] | | | TESTS | [facility] | [address] | | + + + + + [...] By: Armaan Mata : | | | [id number] : 1137 Approved By: | | + + + + + + + + | Performing | Address | City/State/Zipcode | Phone Number | | Organization | | | | + + + + + | [facility] | [address] | [place], [place] | | | [place] | [address] | [address] | | | TESTS | | | | + + + + + | [facility] | [address] [facility] [address] | [place], [place] | | | TESTS | [address] | [address] | | + + + + + MRI SPINE CERVICAL WO CONTRAST (10/01/2005) + + + | Impressions | Performed At | + + + | SPINE LUMBAR 2 VIEWS AT 1421 HOURS LUMBAR SPINE, 10/01/05 | [facility] | | HISTORY: Back pain. FINDINGS: AP and lateral views of the lumbar | CARE TESTS | | spine show five tzi-tsr-qcbgzly lumbar vertebrae in normal alignment | | [...] | SPONDYLOSIS. Transcribed By: Armaan Mata : [id number] : | | | 1402 Approved By: | | + + + + + + + + | Performing | Address | City/[facility] | Phone Number | | Organization | | | | + + + + + | [facility] | [address] | [place], [place] | | | [facility] [facility] | [address] | [address] | | | TESTS | | | | + + + + + | [facility] | [address] | [place], [place] | | | TESTS | [address] | [address] | | + + + + + [...] | | Transcribed By: Adriana Pacheco : [id number] : 1215 Approved By: | | | | | + + + + + + + + | Performing | Address | City/State/Zipcode | Phone Number | | Organization | | | | + + + + + | [facility] | [address] | [place], [place] | | | [facility] | [address] | [address] | | | TESTS | | | | + + + + + | [facility] | [address] | [place], [place] | | | TESTS | [address] | [address] | | + + + + + [place] MRI LOWER EXTREM JT, W/O CONTRAST (08/22/2005) + + + | Impressions | Performed At | + + + | LOWER EXTREMITY JOINT RT W/O AT 1619 HOURS RIGHT KNEE MRI, | [facility] | | 08/22/05 HISTORY: Chronic [...] + + | Performing | Address | City/[facility] | Phone Number | | Organization | | | | + + + + + | [facility] | [address] | [place], [place] | | | [facility] | [address] | [address] | | | TESTS | | | | + + + + + | [facility] | [address] | [place], [place] | | | TESTS | [address] | [address] | | + + + + + [...] [facility] | [address] | [place], [place] | | | [facility] | [address] | [address] | | | TESTS | | | | + + + + + | [facility] | [address] | [place], [place] | | | TESTS | [address] | [address] | | + + + + + [place] MRI LOWER EXTREM JT, W/O CONTRAST (03/05/2005) [...] | | | By: Armaan Mata : [id number] : 1416 Approved By: | | + + + + + + + + | Performing | Address | City/State/Zipcode | Phone Number | | Organization | | | | + + + + + | [facility] | [address] | [place], [place] | | | [facility] | [address] | [address] | | | TESTS | | | [...] Armaan | | | Nicole Saenz : [id number] : 1555 Approved By: | | + + + + + + + + | Performing | Address | City/State/Zipcode | Phone Number | | Organization | | | | + + + + + | [facility] | [address] | [place], [place] | | | [facility] | [address] | [address] | | | TESTS | | | [...] Adriana | | | Aminata Pacheco : [id number] : 1505 Approved By: | | + + + + + + + + | Performing | Address | City/State/Zipcode | Phone Number | | Organization | | | | + + + + + | [facility] | [address] [facility] [address] | [place], [place] | | | [facility] [facility] | [address] | [address] | | | TESTS | | | | + + + + + documented in this encounter Visit Diagnoses Not on filedocumented in this encounter"
--- OUTSIDE RECORDS SUMMARY | ~2019-12-13 | XMS | Encounter Summary ---
[...] +------+ + | Care Food And Nutrition Services Assistant Name | Role | Phone [...] Rd | | | | | | [place], [place] | | | | | | [address] | | | +--------+ + + + [...] of this encounter Progress Notes Interface, Hot Die Press Operator In - 03/12/2007 2:28 AM PDT [id number] GEOVANNI Barnes [id number] Clinic Date: 02/23/2007 Clinic: Endocrinology Subjective: Belinda [...] performed next Thursday, March 01, 2007, in [place]. The right knee will be replaced in [...] patch 25 mcg for 72 hours. 2. Umbarger/acetaminophen 10 mg/325 mg, 1 every 6 hours [...] months. Beto Meeks M.D. PD / HS [id number] / [id number] / [id number] / [id number] cc: Pedrito Gutierrez M.D. [address] [place] [address] Chris Padgett M.D. Department of Surgery, [facility] Electronically signed by Beto Meeks 03-11-2007 04:41:13 PM nterface, Hot Die Press Operator In - 03/12/2007 2:28 AM PDT [id number] GEOVANNI SKELTON J [id number] Clinic Date: 02/23/2007 Clinic: Endocrinology Belinda Meehan [...] her primary care provider, Dr. Gutierrez in [place]. She had a followup eye exam today, [...] replacement next Thursday (in 6 days) in [place], [place]. The right knee replacement tentatively will [...] as needed. Beto Meeks M.D. / SHARIF [id number] / [id number] / [id number] / [id number] cc: Pedrito Gutierrez M.D. [address] [place] [address] Joanna Arshad M.D. Electronically signed by Beto Meeks 03-11-2007 04:41:08 PM documented in this encounter Plan of Treatment Not on filedocumented as of this encounter Visit Diagnoses Not on filedocumented in this encounter"
--- OUTSIDE RECORDS SUMMARY | ~2019-12-13 | XMS | Encounter Summary ---
Demographics + + + | Address | [address] | | | [place] [address] | + + + | Home Phone [...] Providers + +------+ + | Care Net Software Engineer Name | Role | Phone [...] as of this encounter Discharge Summaries Interface, Civil Cad Tech In - 01/12/2005 6:32 AM PDTAdmission Date: [...] M.D., D.M.D. Chris Padgett M.D. CLAIRE/carolynn A [id number] cc: documente d in this encounter Plan of Treatment Not on filedocumented as of this encounter Visit Diagnoses Not on filedocumented in this encounter"
--- OUTSIDE RECORDS SUMMARY | ~2019-12-13 | XMS | Encounter Summary ---
Demographics + + + | Address | [address] | | | [place] [address] | + + + | Home Phone [...] Providers + +------+ + | Care Construction Representative Name | Role | Phone | + +------+ + | Petrona Thapa | PCP | | | MD | | | + +------+ + Reason for Visit +--------+--------+ + | Reason | Onset | Comments | | | Date | | +--------+--------+ + | Other | 02/04/ | Kidney pain | | | 2017 | | +--------+--------+ + Encounter Details +--------+ + + + + | Date | Type | Department | Care Team | Description | +--------+ + + + + | 02/04/ | Telephone | [facility] | Emmy-Kamlesh, | Other (Kidney pain ) | | 2017 | | MEDICINE [address] | MD Petrona | | | | | [place], | [address] [facility] | | | | | [place] [address] | [place] [address] | | | | | [phone] | [phone] | | | | | | | [...] Telephone Encounter - Maggie Montoya LPN - 02/04/2018 2:58 PM PDTLeft message on patient's voicemail that MD out of the office until Thursday and will need to seek medical attention at and UC or ED. 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 Please call [phone]. documented in this encounter Plan of Treatment [...] | | | | | | [place] [address] | | | | | | [phone] | | | | | | | | +--------+---------+ + + + | 12/20/ | Office | Otolaryngology | Ulysses Genao MD | | | 2019 | Visit | | [address] | | | | | | [address] | | | | | | [place] [address] | | | | | | [phone] | | | | | | | | +--------+---------+ + + + | 02/15/ | Office | Internal Medicine | Alanis, | | | 2019 | Visit | | MD Petrona | | | | | | [address] | | | | | | [place] [address] | | | | | | [phone] | | | | | | | | +--------+---------+ + + + documented as of this encounter Visit Diagnoses Not on filedocumented in this encounter"
--- OUTSIDE RECORDS SUMMARY | ~2019-12-13 | XMS | Encounter Summary ---
Demographics + + + | Address | [address] | | | [place] [address] | + + + | Home Phone [...] Providers + +------+ + | Care Aircraft Worker Name | Role | Phone | [...] Jayce Hartley | | | | | [facility] | [address] [place], | | | | | [address] | [place] [address] | | | | | Mailcode: CH15P | | | | | | [facility] | | | | | | and Healing, | | | | | | Building | | | | | | Floor [place], [place] | | | | | | [address] | | | | | | [phone] | | | +--------+ + + + [...]
--- OUTSIDE RECORDS SUMMARY | ~2019-12-13 | XMS | Encounter Summary ---
Demographics + + + | Address | [address] | | | [place] [address] | + + + | Home Phone [...] Team Providers + +------+ + | Care Ring Facer Name | Role | Phone | + +------+ + | Sulaiman Carrera MD | PCP | | + +------+ + Encounter Details +--------+ + + + + | Date | Type | Department | Care Team | Description | +--------+ + + + + | 09/10/ | Ancillary | Registration [address] | Beto Meeks MD | | | 2004 | Registratio | [facility] | [address] | | | | n | [place] Mailcode: RPB07 | [place], [place] | | | | | [place], [place] | [address] | | | | | [address] | [phone] | | | | | [phone] | | | +--------+ + + + [...] + + + + | [facility] | [address] | [place] [address] | | | LABORATORY | | | [...] + + | [facility] | [address] [facility] [address] [facility] [address] | [place] [address] | | | PATHOLOGY | [address] | | | + + + + + | [facility] | [address] | [place] [address] | | | PATHOLOGY | [address] [...] [facility] DE[facility] | [address] | [place] [address] | | | PATHOLOGY | [address] | | | + + + + + | [facility] DEPARTMENT OF | [address] | [place] [address] | | | PATHOLOGY | [address] [...] DEPARTMENT OF | [address] | [place] [address] | | | PATHOLOGY | [address] | | | + + + + + | [facility] DEPARTMENT OF | [address] | [place] [address] | | | PATHOLOGY | [address] | | | + + + + + documented in this encounter Visit Diagnoses Not on filedocumented in this encounter"
--- OUTSIDE RECORDS SUMMARY | ~2019-12-13 | XMS | Encounter Summary ---
Demographics + + + | Address | [address] | | | [place] [address] | + + + | Home Phone [...] Providers + +------+ + | Care Manager Material Name | Role | Phone | + [...] 08/26/ | Office | [facility] at [facility] | Lukasz Charles, | Major Depressive | | 2006 | Visit | [address] | PhD [address] | Disorder, Recurrent | | | | Mailcode: 15 | [place], [place] | Episode, Moderate | | | | [facility] | [address] | ([facility]); Spondylosis | | | | and Healing, | [phone] | with Myelopathy, | | | | | | Lumbar Region; | | | | Floor [place], [place] | | Herniated Lumbar | | | | [address] | | Intervertebral Disc | | | | [phone] | | L4-5; Neck Pain; | | [...] talked to a friend about walking the riverRocky Mountain Venturesk. Overall she has made some good changes. [...] natalie ing an effort to improve. Diagnosis: [place] I: 1. (296.32) Major depressive disorder, recurrent, moderate. 2. (309.24) Adjustment disorder with anxiety. 3. 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 [place] II: Deferred [place] III: abdominal pain, migraine headache, low back pain. [place] IV: low finances [place] V: GAF 50 Plan: Return in 2 weeks. Check pacing, relaxation, activity, distraction. Check managing Pain.. . book. Continue cognitive/behavioral therapy. Total time spent with patient was approximately 45 minutes. LUKASZ CHARLES PHD [facility] [address] [place] [address] And [facility] [address] [place] [address] documented in this encount er Plan of [...] | | | ([facility]) Spondylosis | | | | | [...] depressive disorder, recurrent episode, moderate ([facility]) Major depressive | | disorder, recurrent [...]
--- OUTSIDE RECORDS SUMMARY | ~2019-12-13 | XMS | Encounter Summary ---
Demographics + + + | Address | [address] | | | [place] [address] | + + + | Home Phone [...] Providers + +------+ + | Care Cargo Checker Name | Role | Phone | [...] Refill Request | | 2008 | | [place] [address] | [address] | (Sucralfate) | | | | Bethanie Mailcode: CH4S | [facility] | | | | | [facility] | [place], [place] | | | | | and [place], | [address] | | | | | [facility] | [phone] | | | | | Floor [place], [place] | | | | | | [address] | | | | | | [phone] | | | +--------+--------+ + + + [...]
--- OUTSIDE RECORDS SUMMARY | ~2019-12-13 | XMS | Encounter Summary ---
[...] Providers + +------+ + | Care Emergency Services Director Name | Role | Phone | [...] | | | 2013 | | Department [address] | | | | | | [address] | | | | | | [facility] | | | | | | [place], [place] | | | | | | [address] | | | | | | [phone] | | | +--------+ + + + [...]
--- OUTSIDE RECORDS SUMMARY | ~2019-12-13 | XMS | Encounter Summary ---
Demographics + + + | Address | [address] | | | [place] [address] | + + + | Home Phone [...] Team Providers + +------+ + | Care Gerontology Aide Name | Role | Phone | [...] 08/12/ | Office | [facility] Center at [facility] | Lukasz Charles, | Major Depressive | | 2006 | Visit | [address] | PhD [address] | Disorder, Recurrent | | | | Mailcode: CH15P | [place], [place] | Episode, Moderate | | | | [facility] | [address] | ([facility]); Neck Pain; | | | | and Healing, | [phone] | Migraine Headache; | | | | Building | | Spondylosis with | | | | Floor [place], [place] | | Myelopathy, Lumbar | | | | [address] | | Region; Adjustment | | | | [phone] | | Disorder with | | | [...] is making an effort to improve. Diagnosis: [place] I: 1. (296.32) Major depressive disorder, recurrent, moderate. 2. (309.24) Adjustment disorder with anxiety. 3. 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 [place] II: Deferred [place] III: abdominal pain, migraine headache, low back pain. [place] IV: low finances [place] V: GAF 50 Plan: Return in 2 weeks. Check pacing, relaxation, activity, distraction. Ask about coping with previous headache. Continue cognitive/behavioral therapy. Total time spent with patient was approximately 45 minutes. LUKASZ CHARLES [facility] [address] [facility] [place] [address] documented in this encount er Plan of [...]
--- OUTSIDE RECORDS SUMMARY | ~2019-12-13 | XMS | Encounter Summary ---
Demographics + + + | Address | [address] | | | [place] [address] | + + + | Home Phone [...] Providers + +------+ + | Care Side Boss Name | Role | Phone | [...] of this encounter Progress Notes Interface, Manager Fund In - 01/12/2005 8:09 AM PDT [id number] GEOVANNI Barnes Clinic Date: 10/23/2003 Clinic: Ms. [...] ahead. Chris Padgett M.D. CD / HS [id number] / [id number] / [id number] / [id number] documented i n this encounter Plan of Treatment Not on filedocumented as of this encounter Visit Diagnoses Not on filedocumented in this encounter"
--- OUTSIDE RECORDS SUMMARY | ~2019-12-13 | XMS | Encounter Summary ---
Demographics + + + | Address | [address] | | | [place] [address] | + + + | Home Phone [...] Team Providers + +------+ + | Care Biological Science Aide Name | Role | Phone | + +------+ + | Pedrito Gutierrez MD | PCP | | + +------+ + Encounter Details +--------+ + + + + | Date | Type | Department | Care Team | Description | +--------+ + + + + | 08/04/ | Telephone | Dig[facility]ive Health | Chris Padgett, | | | 2006 | | [place] [address] | [address] [facility] | | | | | Beth[place] Mailcode: CH4S | [facility] | | | | | [facility] | [place], [place] | | | | | and Healing, | [address] | | | | | Building | [phone] | | | | | Floor [place], [place] | | | | | | [address] | | | | | | [phone] | | | +--------+ + + + [...]
--- OUTSIDE RECORDS SUMMARY | ~2019-12-13 | XMS | Encounter Summary ---
Demographics + + + | Address | [address] | | | [place] [address] | + + + | Home Phone [...] Providers + +------+ + | Care Operations Officer Name | Role | Phone [...] Rd | | | | | | [place], [place] | | | | | | [address] | | | +--------+ + + + [...]
--- OUTSIDE RECORDS SUMMARY | ~2019-12-13 | XMS | Encounter Summary ---
Demographics + + + | Address | [address] | | | [place] [address] | + + + | Home Phone [...] Team Providers + +------+ + | Care Wall Insulation Sprayer Name | Role | Phone | [...] + + | 06/28/ | Office | [facility] | Delfina Molina, | LBP (Low Back Pain); | | 2007 | Visit | Pain Center at | ANP | Encounter for | | | | [facility] | | Long-Term (Current) | | | | [address] | | Use of Opioids; | | | | Mailcode: CH15P | | Arthroplasty of the | | | | [facility] | | Left Knee; Bilateral | | | | and Healing, | | Knee Pain; 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 Epidural steroid injections are awhile call to schedule with Dr. Kylah SHEEHAN. documented in this encounter Progress Notes Delfina Molina - 06/28/2007 8:56 AM PSTFormatting of this note might be different from th e original. 06/28/2007 Belinda Meehan is a 47 y.o. female [facility] Pain Center Return Visit Chief Complaint: [...] be in bed so long. Son primary nurse behavioral health care. Current outpatient medications Medication Sig Dispense [...] Collection Time Resulting Agency 05/25/2007 4:06 PM [facility] DEPARTMENT OF RADIOLOGY Component Results MR CERVICAL [...] with any concerns or questions. DELFINA MOLINA [facility] Mail code CH 4P [facility] [address] [facility] [address] Ailyn Bello 06/28/19 08 8:38 [...]
--- OUTSIDE RECORDS SUMMARY | ~2019-12-13 | XMS | Encounter Summary ---
Demographics + + + | Address | [address] | | | [place] [address] [...] Providers + +------+ + | Care Animal Husbandry Teacher Name | Role | Phone | [...]
--- OUTSIDE RECORDS SUMMARY | ~2019-12-13 | XMS | Encounter Summary ---
Demographics + + + | Address | [address] | | | [place] [address] | + + + | Home Phone [...] Team Providers + +------+ + | Care Soldering Machine Operator Automatic Name | Role | [...] + | 09/01/ | Telephone | [facility] | Alanis, | Sinus Pain | | 2018 | | MEDICINE [address] | MD Petrona | | | | | [place], | [address] [facility] | | | | | [place] [address] | [place] [address] | | | | | [phone] | [phone] | | | | | | | [...] well. Patient would like a call china hidalgo, . documented in this encounter Plan of [...] | | | | | [place] [address] | | | | | | [phone] | | | | | | | | +--------+---------+ + + + | 12/20/ | Office | Otolaryngology | Ulysses Genao MD | | | 2019 | Visit | | [address] | | | | | | [address] | | | | | | [place] [address] | | | | | | [phone] | | | | | | | | +--------+---------+ + + + | 02/15/ | Office | Internal Medicine | Alanis, | | | 2019 | Visit | | MD [place]rona | | | | | | [address] | | | | | | [place] [address] | | | | | | [phone] | | | | | | | | +--------+---------+ + + + documented as of this encounter Visit Diagnoses Not on filedocumented in this encounter"
--- OUTSIDE RECORDS SUMMARY | ~2019-12-13 | XMS | Encounter Summary ---
Demographics + + + | Address | [address] | | | [place] [address] | + + + | Home Phone [...] Team Providers + +------+ + | Care Tread Builder Name | Role | Phone | [...] | | | | | hemorrhoid | [place], [place] | [address] | | | | | Rectal pain | [address] | [facility] | | | | | Procedures | | Rd [place], | | | | | CONSULT TO | | [place] | | | | | [place]OR[place]AL | | [address] | | | | | SURGERY | | Phone: | | | | | | | [phone] | | | | | | | Fax: | | | | | | | [phone] | +--------+--------+ + + + + Encounter [...] | | | | Mailcode: Center | [place], [place] | | | | | [facility] and | [address] | | | | | [facility] 2 | [phone] | | | | | [place], [place] | | | | | | [address] | | | | | | [phone] | | | +--------+---------+ + + + [...] stool. She had a normal colonoscopy at [facility] in 2005 PMH: Past Medical [...] 08/2007 right knee Hx lumbar fusion 05/2008 L5-F1elupfc with bone spur removals Hx appendectomy Hx [...] Tramadol Morphine IM ( only in [facility]) made gut pain worse 08/27/06: Trial of oral MSIR caused leg swelling Clarithromycin Hives Mainly in the legs Bpbiyox-knubvdcsig-fvh-caff Balance problems Amitriptyline Grand mal seizures SH: [...] + + +--------+ + + | PA DIAGNOSTIC | Procedures | Routin | Anal or Rectal | Ordered: 10/05/2008 | | ANOSCOPY | | e | Pain | | + + +--------+ + + documented as of this encounter Visit Diagnoses + + | Diagnosis | + + | Anal or rectal pain - Primary | + + documented in this encounter
--- OUTSIDE RECORDS SUMMARY | ~2019-12-13 | XMS | Encounter Summary ---
Demographics + + + | Address | [address] | | | [place] [address] | + + + | Home Phone [...] Team Providers + +------+ + | Care Linen Room Worker Name | Role | Phone | [...] + | 05/30/ | Refill | [facility] | Alanis, | Medication Refill | | 2016 | | MEDICINE [address] | MD Petrona | | | | | [place], | [address] [facility] | | | | | [place] [address] | [place] [address] | | | | | [phone] | [phone] | | | | | | | [...] [facility] [address] | | | | | | ST [place] | | | | | | [place] [address] | | | | | | [phone] | | | | | | | | +--------+---------+ + + + | 12/20/ | Office | Otolaryngology | Ulysses Genao MD | | | 2019 | Visit | | [address] | | | | | | [address] [place] | | | | | | [place] [address] | | | | | | [phone] | | | | | | | | +--------+---------+ + + + | 02/15/ | Office | Internal Medicine | Alanis, | | | 2019 | Visit | | MD Petrona | | | | | | [address] [place] | | | | | | [place] [address] | | | | | | [phone] | | | | | | | | +--------+---------+ + + + documented as of this encounter Visit Diagnoses Not on filedocumented in this encounter"
--- OUTSIDE RECORDS SUMMARY | ~2019-12-13 | XMS | Encounter Summary ---
Demographics + + + | Address | [address] | | | [place] [address] | + + + | Home Phone [...] Team Providers + +------+ + | Care Stock Puller Name | Role | Phone | [...] [address] | | | | | [place], [place] | [place], [place] | | | | | [address] | [address] | | | | | [phone] | [phone] | | | | | | | [...] | | + +---------+ + + | [facility] DEPARTMENT OF | | | | | RADIOLOGY | | | | + +---------+ + + documented in this encounter Visit Diagnoses Not on filedocumented in this encounter"
--- OUTSIDE RECORDS SUMMARY | ~2019-12-13 | XMS | Encounter Summary ---
Demographics + + + | Address | [address] | | | [place] [address] | + + + | Home Phone [...] Providers + +------+ + | Care Pharmacy Consultant Name | Role | Phone | [...] [address] | | | | | [facility] | [place], [place] | | | | | [address] | [address] | | | | | [address] | [phone] | | | | | [facility] | | | | | | Physician's | | | | | | Pavilion [place], | | | | | | [place] [address] | | | | | | [phone] | | | +--------+ + + + [...]
--- OUTSIDE RECORDS SUMMARY | ~2019-12-13 | XMS | Encounter Summary ---
Demographics + + + | Address | [address] | | | [place] [address] | + + + | Home Phone [...] Team Providers + +------+ + | Care Pilot Teacher Name | Role | Phone | [...] [address]rae | | | | | [facility] | [place], [place] | | | | | and Healing, | [address] | | | | | [facility] | [phone] | | | | | Floor [place], [place] | | | | | | [address] | | | | | | [phone] | | | +--------+ + + + [...]
--- OUTSIDE RECORDS SUMMARY | ~2019-12-13 | XMS | Encounter Summary ---
Demographics + + + | Address | [address] | | | [place] [address] | + + + | Home Phone [...] Providers + +------+ + | Care Rug Dry Room Attendant Name | Role | Phone | [...]
--- OUTSIDE RECORDS SUMMARY | ~2019-12-13 | XMS | Encounter Summary ---
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 Diagnosis: Pullman I: 1. (296.32) Major depressive disorder, recurrent, moderate. 2. (309.24) Adjustment disorder with anxiety. 3. 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 Pullman II: Deferred Pullman III: abdominal pain, migraine headache, low back pain. Pullman IV: low finances Pullman V: GAF 50 Plan: Return in 2 weeks. Check preparation for niece's visit, Curves gym, pacing, relaxation, ac tivity, distraction. Check managing Pain... book. Continue cognitive/behavioral therapy. Total time spent with patient was approximately 45 minutes. LUKASZ CHARLES PHD [facility] [address] [facility] [address] [place] [address] documented in this encount er Plan of [...]
--- OUTSIDE RECORDS SUMMARY | ~2019-12-13 | XMS | Encounter Summary ---
Demographics + + + | Address | [address] | | | [place] [address] | + + + | Home Phone [...] Team Providers + +------+ + | Care Slag Production Worker Name | Role | Phone [...] | 03/12/ | Refill | [facility] [place] [facility] | Alanis, | Medication Refill | | 2018 | | MEDICINE [address] | MD Petrona | | | | | [place], | [address] [facility] | | | | | [place] [address] | [place] [address] | | | | | [phone] | [phone] | | | | | | | [...] | | | | | [place] [address] | | | | | | [phone] | | | | | | | | +--------+---------+ + + + | 12/20/ | Office | Otolaryngology | Ulysses Genao MD | | | 2019 | Visit | | [address] | | | | | | [address] [place] | | | | | | [place] [address] | | | | | | [phone] | | | | | | | | +--------+---------+ + + + | 02/15/ | Office | Internal Medicine | Alanis, | | | 2019 | Visit | | MD Petrona | | | | | | [address] [place] | | | | | | [place] [address] | | | | | | [phone] | | | | | | | | +--------+---------+ + + + documented as of this encounter Visit Diagnoses Not on filedocumented in this encounter"
--- OUTSIDE RECORDS SUMMARY | ~2019-12-13 | XMS | Encounter Summary ---
Demographics + + + | Address | [address] | | | [place] [address] | + + + | Home Phone [...] Providers + +------+ + | Care Belt Tender Name | Role | Phone | + +------+ + | Petrona Thapa | PCP | | | MD | | | + +------+ + Encounter Details +--------+ + + + + | Date | Type | Department | Care Team | Description | +--------+ + + + + | 10/04/ | Documentati | [facility] [place] [facility] | Alanis, | | | 2019 | on | MEDICINE [address] | MD Petrona | | | | | [place], | [address] [facility] | | | | | [place] [address] | [place] [address] | | | | | [phone] | [phone] | | | | | | | [...] | | | | | [place] [address] | | | | | | [phone] | | | | | | | | +--------+---------+ + + + | 12/20/ | Office | Otolaryngology | Ulysses Genao MD | | | 2019 | Visit | | [address] | | | | | | [address] [place] | | | | | | [place] [address] | | | | | | [phone] | | | | | | | | +--------+---------+ + + + | 02/15/ | Office | Internal Medicine | Alanis, | | | 2019 | Visit | | MD [place]ron[place] | | | | | | [address] [place] | | | | | | [place] [address] | | | | | | [phone] | | | | | | | | +--------+---------+ + + + documented as of this encounter Visit Diagnoses Not on filedocumented in this encounter"
--- OUTSIDE RECORDS SUMMARY | ~2019-12-13 | XMS | Encounter Summary ---
Demographics + + + | Address | [address] | | | [place] [address] | + + + | Home Phone [...] Team Providers + +------+ + | Care Stereoplotter Operator Name | Role | Phone | [...] | 2004 | Registratio | [facility] | [address] | | | | n | [place] Mailcode: RPB07 | [place], [place] | | | | | [place], [place] | [address] | | | | | [address] | [phone] | | | | | [phone] | | | +--------+ + + + [...] | + + + + + | [facility] | [address] | [place] [address] | | | LABORATORY | | | [...] [facility] | [address] [facility] | [place] [address] | | | PATHOLOGY | [address] | | | + + + + + | [facility] | [address] [facility] | [place] [address] | | | PATHOLOGY | [address] [...] [facility] DEPARTMENT OF | [address] | [place] [address] | | | PATHOLOGY | [address] | | | + + + + + | [facility] DEPARTMENT OF | [address] | [place] [address] | | | PATHOLOGY | [address] [...] DEPARTMENT OF | [address] | [place] [address] | | | PATHOLOGY | [address] | | | + + + + + | [facility] DEPARTMENT OF | [address] | [place] [address] | | | PATHOLOGY | [address] | | | + + + + + documented in this encounter Visit Diagnoses Not on filedocumented in this encounter"
--- OUTSIDE RECORDS SUMMARY | ~2019-12-13 | XMS | Encounter Summary ---
Demographics + + + | Address | [address] | | | [place] [address] | + + + | Home Phone [...] Providers + +------+ + | Care Email Campaign Manager Name | Role | Phone [...] + + | 03/28/ | Refill | [facility] | Alanis, | Medication Refill | | 2016 | | MEDICINE [address] | MD Petrona | | | | | [place], | [address] [facility] | | | | | [place] [address] | [place] [address] | | | | | [phone] | [phone] | | | | | | | [...] | | [facility] [address] | | | | | [address] [place] | | | | | | [place] [address] | | | | | | [phone] | | | | | | | | +--------+---------+ + + + | 12/20/ | Office | Otolaryngology | Ulysses Genao MD | | | 2019 | Visit | | [address] | | | | | | [place] | | | | | | [place] [address] | | | | | | [phone] | | | | | | | | +--------+---------+ + + + | 02/15/ | Office | Internal Medicine | Alanis, | | | 2019 | Visit | | MD Petrona | | | | | | [address] [place] | | | | | | [place] [address] | | | | | | [phone] | | | | | | | | +--------+---------+ + + + documented as of this encounter Visit Diagnoses Not on filedocumented in this encounter"
--- OUTSIDE RECORDS SUMMARY | ~2019-12-13 | XMS | Encounter Summary ---
Demographics + + + | Address | [address] | | | [place] [address] | + + + | Home Phone [...] Providers + +------+ + | Care Warehouse Puller Name | Role | Phone | + +------+ + | Pedrito Gutierrez MD | PCP | | + +------+ + Encounter Details +--------+---------+ + + + | Date | Type | Department | Care Team | Description | +--------+---------+ + + + | 07/30/ | Office | [facility] | Eliezer Ruano, | Abdominal Pain | | 2006 | Visit | [place] [address] | [address] | (Primary Dx) | | | | Ave Mailcode: CH4S | [address] | | | | | [facility] | [facility] [place] | | | | | and Healing, | [address] | | | | | [facility] 1, 6th | [phone] | | | | | Floor [place], [place] | | | | | | [address] | | | | | | [phone] | | | +--------+---------+ + + + [...] [facility] [address] [facility], 6th [place] [address] alena Palacio - 07/30 4:09 PM PSTS: [...]
--- OUTSIDE RECORDS SUMMARY | ~2019-12-13 | XMS | Encounter Summary ---
Demographics + + + | Address | [address] | | | [place] [address] | + + + | Home Phone [...] Team Providers + +------+ + | Care Portfolio Administrator Name | Role | Phone | + +------+ + | Petrona Thapa | PCP | | | MD | | | + +------+ + Reason for Visit + +--------+ + | Reason | Onset | Comments | | | Date | | + +--------+ + | ER Follow-up | 06/26/ | | | | 2017 | | + +--------+ + Encounter Details +--------+ + + + + | Date | Type | Department | Care Team | Description | +--------+ + + + + | 06/26/ | Telephone | [facility] | Alanis, | ER Follow-up | | 2017 | | MEDICINE [address] | MD Petrona | | | | | [place], | [address] [facility] | | | | | [place] [address] | [place] [address] | | | | | [phone] | [phone] | | | | | | | [...] Juliane Fernandez - 06/26/2017 8:06 AM PSTContact/Gerardo ler: Belinda Contact Number: [phone] Provider/Nurse: Emmy Reason for Call: Emergency room [...] | | | | | [place] [address] | | | | | | [phone] | | | | | | | | +--------+---------+ + + + | 12/20/ | Office | Otolaryngology | Ulysses Genao MD | | | 2019 | Visit | | [address] | | | | | | [address] [place] | | | | | | [place] [address] | | | | | | [phone] | | | | | | | | +--------+---------+ + + + | 02/15/ | Office | Internal Medicine | Alanis, | | | 2019 | Visit | | MD Petrona | | | | | | [address] [place] | | | | | | [place] [address] | | | | | | [phone] | | | | | | | | +--------+---------+ + + + documented as of this encounter Visit Diagnoses Not on filedocumented in this encounter"
--- OUTSIDE RECORDS SUMMARY | ~2019-12-13 | XMS | Encounter Summary ---
Demographics + + + | Address | [address] | | | [place] [address] | + + + | Home Phone [...] + | 07/30/ | Hospital | [facility] | Ulysses Genao MD | | | 2011 - | Encounter | [facility] | [address] | | | | | [address] [place] | [address] [place] | | | / | | [place] [address] | [place] [address] | | | 2011 | | [phone] | [phone] | | | | | | | [...] | | | | | [place] [address] | | | | | | [phone] | | | | | | | | +--------+---------+ + + + | 12/20/ | Office | Otolaryngology | Ulysses Genao MD | | | 2019 | Visit | | [address] | | | | | | [address] [place] | | | | | | [place] [address] | | | | | | [phone] | | | | | | | | +--------+---------+ + + + | 02/15/ | Office | Internal Medicine | Alanis, | | | 2019 | Visit | | MD [place] | | | | | | [address] | | | | | | [place] [address] | | | | | | [phone] | | | | | | | | +--------+---------+ + + + documented as of this encounter Visit Diagnoses Not on filedocumented in this encounter"
--- OUTSIDE RECORDS SUMMARY | ~2019-12-13 | XMS | Encounter Summary ---
Demographics + + + | Address | [address] | | | [place] [address] | + + + | Home Phone [...] Team Providers + +------+ + | Care Exhaust Worker Name | Role | Phone | [...] + + | 08/14/ | Office | [facility] | Alanis, | Situational insomnia | | 2020 | Visit | MEDICINE [address] | MD John | (Primary Dx); | | | | [facility] | [address] [facility] | Situational | | | | [place] [address] | [place] [address] | depression | | | | [phone] | [phone] | | | | | | | [...] Total Score 10 (08/15/19934) (Printable questionnaires in Tamazight ) Interpretation of Total Score: 1-4 = [...] mcg 1,000 mcg Intramuscular Q30 [facility] steve-Russell Thapa MD 1,000 mcg at 08/15/19 0920 ALLERGIES Allergies Allergen Reactions Ensure Diarrhea Food Diarrhea Lactose Yhaskilygi-Eun-Gzma-Codeine Other (See Comments) Balance problems Codeine Sulfate Nausea Only Food Allergy Formula Diarrhea Ensure Levofloxacin Hives, Itching and Rash Butalbital Ropinirole Amitriptyline Hcl Other (See Comments) Confused and questionable for seizures Hiwrvpkfwz-Ibxk-Ahctmizn Rash duplicate Ynyygvtgmu-Tfmp-Jjbkxcei Hives and Rash Cephalexin Hives Ciprofloxacin Hives and Rash Clarithromycin Hives and Rash Clindamycin Hcl Hives and Rash Doxycycline Rash Duloxetine Other (See Comments) Migraines and nausea Ketorolac Hives Levofloxacin Hives and Rash Morphine Swelling Penicillins Hives and Rash Ropinirole Hcl Hives Sulfamethoxazole-Trimethoprim Hives and Rash Tramadol Hcl Nausea Only FOLLOW-UP No follow-ups on file. Notes: 1. Parts of this documentwere created using [employer] speech recognition software. As a resu lt, there may be unintended word spelling errors. Every attempt was made to correct the di ctation. earnest colin in this encounter Miscellaneous Notes [...] Vijaya | | | | | | [place] [address] | | | | | | [phone] | | | | | | | | +--------+---------+ + + + | 12/20/ | Office | Otolaryngology | Ulysses Genao MD | | | 2019 | Visit | | [address] | | | | | | [address] [place] | | | | | | [place] [address] | | | | | | [phone] | | | | | | | | +--------+---------+ + + + | 02/15/ | Office | Internal Medicine | Alanis, | | | 2019 | Visit | | MD John | | | | | | [address] [place] | | | | | | [place] [address] | | | | | | [phone] | | | | | | | [...]
--- OUTSIDE RECORDS SUMMARY | ~2019-12-13 | XMS | Encounter Summary ---
Demographics + + + | Address | [address] | | | [place] [address] | + + + | Home Phone [...] Team Providers + +------+ + | Care Servicer Coin Machines Name | Role | Phone | + [...] of this encounter Progress Notes Interface, Quantitative Analyst In - 01/12/2005 6:32 AM PDT Referred [...] she was going to go to the [employer] food store and try to find another [...] two months. Svetlana Maki R.D. SR/x35 P [id number] signed by Interface, Quantitative Analyst In at 01/12/2005 6:32 AM [facility] umented in this encounter Plan of Treatment Not on filedocumented as of this encounter Visit Diagnoses Not on filedocumented in this encounter"
--- OUTSIDE RECORDS SUMMARY | ~2019-12-13 | XMS | Encounter Summary ---
Demographics + + + | Address | [address] | | | [place] [address] | + + + | Home Phone [...] Providers + +------+ + | Care Manager Study Name | Role | Phone | + [...] + + | 01/08/ | Telephone | [facility] | Alanis, | Results, Imaging | | 2017 | | MEDICINE [address] | MD Petrona | | | | | [place], | [address] [facility] [place] | | | | | [place] [address] | [place] [address] | | | | | [phone] | [phone] | | | | | | | [...] | | | | | [place] [address] | | | | | | [phone] | | | | | | | | +--------+---------+ + + + | 12/20/ | Office | Otolaryngology | Ulysses Genao MD | | | 2019 | Visit | | [address] | | | | | | [address] [place] | | | | | | [place] [address] | | | | | | [phone] | | | | | | | | +--------+---------+ + + + | 02/15/ | Office | Internal Medicine | Alanis, | | | 2019 | Visit | | MD [place] | | | | | | [address] [place] | | | | | | [place] [address] | | | | | | [phone] | | | | | | | | +--------+---------+ + + + documented as of this encounter Visit Diagnoses Not on filedocumented in this encounter"
--- OUTSIDE RECORDS SUMMARY | ~2019-12-13 | XMS | Encounter Summary ---
Demographics + + + | Address | [address] | | | [place] [address] | + + + | Home Phone [...] Providers + +------+ + | Care Transportation Security Officer Name | Role | Phone [...] [address] | | | | | | [facility] | | | | | | [place], [place] | | | | | | [address] | | | | | | [phone] | | | +--------+ + + + [...]
--- OUTSIDE RECORDS SUMMARY | ~2019-12-13 | XMS | Encounter Summary ---
Demographics + + + | Address | [address] | | | [place] [address] | + + + | Home Phone [...] Providers + +------+ + | Care Program Planner Name | Role | Phone | [...] [address] | | | | | | [place], [place] | | | | | | [address] | | | | | | [phone] | | | +--------+ + + + [...]
--- OUTSIDE RECORDS SUMMARY | ~2019-12-13 | XMS | Encounter Summary ---
Demographics + + + | Address | [address] | | | [place] [address] | + + + | Home Phone [...] Providers + +------+ + | Care Principal Cloud Architect Name | Role | Phone | [...] | Osteopenia | | 2006 | | [place] [address] | [address] [facility] | | | | | [place] Mailcode: CH4S | [address] | | | | | [facility] | [place], [place] | | | | | and Healing, | [address] | | | | | [facility] | [phone] | | | | | Floor [place], [place] | | | | | | [address] | | | | | | [phone] | | | +--------+ + + + [...]
--- OUTSIDE RECORDS SUMMARY | ~2019-12-13 | XMS | Encounter Summary ---
Demographics + + + | Address | [address] | | | [place] [address] [...] Providers + +------+ + | Care Supervisor Leaf Spring Repair Name | Role | Phone | + [...] | Pain | Diagnoses | Miracle, | Beadle, | | | | Management | LBP (low | NIHARIKA Jean | Lukasz Rhodes, PhD | | | | | back pain) | [address] | [address] | | | | | DJD | [address] | Ave | | | | | (degenerativ | [place], [place] | [place] | | | | | e joint | [address] | [address] | | | | | disease) of | | Phone: | | | | | knee Knee | | [phone] | | | | | pain Major | | Fax: | | | | | depressive | | [phone] | | | | | disorder, | [...] 03/03/ | Office | [facility] | Lukasz Charles, | Major Depressive | | 2007 | Visit | [address] | PhD [address] | Disorder, Recurrent | | | | Mailcode: [facility] | [place], [place] | Episode, Moderate | | | | [facility] | [address] | ([facility]); LBP (Low Back | | | | and Healing, | [phone] | Pain); Bilateral | | | | | | Knee Pain; | | | | Floor [place], [place] | | Fibromyalgia | | | | [address] | | syndrome 729.1; | | | | [phone] | | Adjustment Disorder | | | [...] seems to be doing good self-care. Diagnosis: Sieper I: 1. (296.32) Major depressive disorder, recurrent, moderate. 2. (309.24) Adjustment disorder with anxiety. 3. 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 Sieper II: Deferred Sieper III: abdominal pain, migraine headache, low back pain. Sieper IV: low finances Sieper V: GAF 55-60 Plan: return with next medical follow-up appointment. Check mood, pain, relaxation, activ ity, distraction, eating. Continue cognitive/behavioral therapy. Total time spent with patient was approximately 45 minutes. LUKASZ CHARLES PHD [facility] [address] [facility], 4th [place] [address] documented in this encount er Plan of Treatment + + +--------+ + + | Name | Type | Priori | Associated Diagnoses | Order Schedule | | | | ty | | | + + +--------+ + + | [facility], | Procedures | Routin | Major Depressive | Ordered: 03/03/2008 | | OFFICE (03-66) | | e | Disorder, Recurrent | [...]
--- OUTSIDE RECORDS SUMMARY | ~2019-12-13 | XMS | Encounter Summary ---
Demographics + + + | Address | [address] | | | [place] [address] | + + + | Home Phone [...] Providers + +------+ + | Care Audio Production Instructor Name | Role | Phone | [...] | | | central | [address] | [facility] | | | | | origin, | [address] | [address] | | | | | unspecified | [place] | AVE | | | | | laterality | [place] | [place] | | | | | Procedures | [address] | [address] | | | | | MRI Brain w | Phone: | Phone: | | | | | wo Contrast | [phone] | [phone] | | | | | DE MRI | Fax: | Fax: | | | | | BRAIN COMBO | [phone] | [phone] | +--------+--------+ + + + + Reason [...] | | | | | escu | [address] | [place] [address] | | | | | Procedures | [place], | Phone: | | | | | OFFICE VISIT | [place] | [phone] | | | | | REGULAR | [address] | Fax: | | | | | | Phone: | [phone] | | | | | | [phone] | | | | | | | Fax: | | | | | | | [phone] | | +--------+--------+ + + + + Encounter Details +--------+---------+ + + + | Date | Type | Department | Care Team | Description | +--------+---------+ + + + | 10/18/ | Office | [facility] | Ulysses Dsouza MD | Vertigo of [place] | | 2015 | Visit | OTOLARYNGOLOGY [address] | [address] | origin, unspecified | | | | [address] | [address] [place] | laterality (Primary | | | | [place] | [place] [address] | Dx) | | | | [address] | [phone] | | | | | [phone] | | | +--------+---------+ + + + [...] MD - 10/18/2014 10:50 AM PDT [facility] OTOLARYNGOLOGY [address] [place] [address] OFFICE NOTE ULYSSES DSOUZA MD Patient: BELINDA MEEHAN Admitting: MR #: [id number] LOC: PT TYPE: Adm Date: 10/18/2014 : [...] 10/18/2014 10:50:30 Transcribed on 10/18/2014 11:06:48 by cmv job# [id number] Confirmation #: [id number] signed by Ulysses Dsouza MD at 10/18/2014 12:48 PM PDT Ulysses Dsouza MD - 10/18/2014 10:45 AM PDTSee dictation # [id number] signed by Ulysses Dsouza MD at 10/18/2014 [...] | | | | | [place] [address] | | | | | | [phone] | | | | | | | | +--------+---------+ + + + | 12/20/ | Office | Otolaryngology | Ulysses Dsouza MD | | 2019 | Visit | | [address] | | | | | | [address] [place] | | | | | | [place] [address] | | | | | | [phone] | | | | | | | | +--------+---------+ + + + | 02/15/ | Office | Internal Medicine | Alanis, | | | 2019 | Visit | | MD [place]rona | | | | | | [address] [place] | | | | | | [place] [address] | | | | | | [phone] | | | | | | | [...]
--- OUTSIDE RECORDS SUMMARY | ~2019-12-13 | XMS | Encounter Summary ---
Demographics + + + | Address | [address] | | | [place] [address] | + + + | Home Phone [...] Team Providers + +------+ + | Care Metallurgical Tester Name | Role | Phone | [...] 09/01/ | Telephone | Orthopaedics | Andrew Nagel | Other | | 2006 | | [facility] at [facility] | MD Darrion,PhD [address] | | | | | for Health and | [address] | | | | | Healing [address] | [place], [place] | | | | | Bethanie Mailcode: | [address] | | | | | [facility] | [phone] | | | | | Health and Healing, | | | | | | [facility] | | | | | | Floor [place], [place] | | | | | | [address] | | | | | | [phone] | | | +--------+ + + + [...]
--- OUTSIDE RECORDS SUMMARY | ~2019-12-13 | XMS | Encounter Summary ---
Demographics + + + | Address | [address] | | | [place] [address] | + + + | Home Phone [...] Providers + +------+ + | Care Electronic Resources Librarian Name | Role | Phone | + [...] | | | | [facility] Physician's | [place], [place] | | | | | [address] | [address] | | | | | [place], [place] | [phone] | | | | | [address] | | | | | | [phone] | | | +--------+ + + + [...] + + + | [facility] | [address] | [place] [address] | | | LABORATORY | | | [...] DEPARTMENT OF | [address] | [place] [address] | | | PATHOLOGY | [address] | | | + + + + + | [facility] | [address] | [place] [address] | | | PATHOLOGY | [address] | | | + + + + + documented in this encounter Visit Diagnoses Not on filedocumented in this encounter"
--- OUTSIDE RECORDS SUMMARY | ~2019-12-13 | XMS | Encounter Summary ---
Demographics + + + | Address | [address] | | | [place] [address] | + + + | Home Phone [...] | 08/14/ | Refill | [facility] | Alanis, | Medication Refill | | 2018 | | MEDICINE [address] | MD [place]rona | | | | | [place], | [address] [facility] | | | | | [place] [address] | [place] [address] | | | | | [phone] | [phone] | | | | | | | [...] | | [facility] [address] | | | | | | ST [place] | | | | | | [place] [address] | | | | | | [phone] | | | | | | | | +--------+---------+ + + + | 12/20/ | Office | Otolaryngology | Ulysses Genao MD | | | 2019 | Visit | | [address] | | | | | | [address] [place] | | | | | | [place] [address] | | | | | | [phone] | | | | | | | | +--------+---------+ + + + | 02/15/ | Office | Internal Medicine | Alanis, | | | 2019 | Visit | | MD [place] | | | | | | [address] [place] | | | | | | [place] [address] | | | | | | [phone] | | | | | | | | +--------+---------+ + + + documented as of this encounter Visit Diagnoses Not on filedocumented in this encounter"
--- OUTSIDE RECORDS SUMMARY | ~2019-12-13 | XMS | Encounter Summary ---
Demographics + + + | Address | [address] | | | [place] [address] | + + + | Home Phone [...] Team Providers + +------+ + | Care Paint Line Production Supervisor Name | Role | Phone | [...] + + | 06/17/ | Office | [facility] | Emmy-Kamlesh, | Migraine without | | 2019 | Visit | MEDICINE [address] | MD Petrona | aura and without | | | | AVE [place], | [address] [place] | status migrainosus, | | | | [place] [address] | [place] [address] | not intractable | | | | [phone] | [phone] | (Primary Dx); | | | | [...] this encounter Progress Petrona Riojas MD - 06/17/2018 10:45 AM PSTFormatting of [...] extremities. Had an MRI of [facility] recently showing chronic d egenerative changes and disc bulges in her lower back with no significant stenosis or other acute indications for neurosurgery. Findings were similar to a previous MRI from a few year s ago. She did have back surgery in [facility] on a number of years ago. She [...] COLONOSCOPY; Surgeon: Luther Brito MD; Location: [facility] DILATION AND CURETTAGE OF UTERUS ELBOW SURGERY FINGER TRIGGER RELEASE 2003 FINGER TRIGGER RELEASE 2010 GASTRIC BYPASS SURGERY 2004 HYSTERECTOMY 05/14/1980 JOINT REPLACEMENT Bilateral 2006 2008 KNEE ARTHROSCOPY 2005 LAPAROSCOPY 01/27/2015 LAPAROTOMY 2008 ROTATOR CUFF REPAIR 2005 SPINE SURGERY TONSILLECTOMY 1964 UPPER GASTROINTESTINAL ENDOSCOPY N/A 12/18/2017 Procedure: EGD; Surgeon: Luther Brito MD; Location: [facility] MEDICAL PROCEDURE UNIT CURRENT MEDICATIONS Current Outpatient [...] Cla Maddie Thapa MD 1,000 mcg at 05/17/18 1102 ALLERGIES Allergies Allergen Reactions Ensure Diarrhea Food Diarrhea Lactose Codeine Sulfate Nausea Only Levofloxacin Hives, Itching and Rash Butalbital Ropinirole Amitriptyline Hcl Other (See Comments) Confused and questionable for seizures Hkibqvkwnw-Wuqe-Tuprqvcf Hives and Rash Cephalexin Hives Ciprofloxacin Hives [...] - We'll refer for physical therapy in [place], including aquatic therapy. FOLLOW-UP Return in about 3 months (around 09/15/2018). Note: Parts of this documentwere created using [employer]amer[employer] speech recognition software. As a r esult, there may be unintended word spelling errors. Every attempt was made to correct the dictation. Shanta Trevino Lubricating Engineer - 06/17/2018 10:45 AM PSTFormatting of this note might be diff erent from the original. Administrations This Visit cyanocobalamin (VITAMIN B-12) injection 1,000 mcg Admin Date 06/17/2018 Action Given Dose 1000 mcg Route Intramuscular Administered By Shanta Whaley Lubricating Engineer Pt tolerated B-12 injection well. documented in [...] | | | | | [place] [address] | | | | | | [phone] | | | | | | | | +--------+---------+ + + + | 12/20/ | Office | Otolaryngology | Ulysses Genao MD | | | 2019 | Visit | | [address] | | | | | | [address] [place] | | | | | | [place] [address] | | | | | | [phone] | | | | | | | | +--------+---------+ + + + | 02/15/ | Office | Internal Medicine | Alanis, | | | 2019 | Visit | | MD [place]rona | | | | | | [address] [place] | | | | | | [place] [address] | | | | | | [phone] | | | | | | | [...]
--- OUTSIDE RECORDS SUMMARY | ~2019-12-13 | XMS | Encounter Summary ---
Demographics + + + | Address | [address] | | | [place] [address] | + + + | Home Phone [...] Providers + +------+ + | Care Security Solutions Engineer Name | Role | Phone | [...] of this encounter Progress Notes Interface, Head Of Marketing Analytics In - 01/12/2005 10:09 AM PDT [id number] [facility] Date: 12/25/2004 Clinic: GENERAL [...] send an emergency supply fax to [facility] at fax #[phone], first 30 pills, oxycodone 5 mg to [...] the current plan. Melisa Thorne / SHARIF [id number] / [id number] / [id number] / [id number] Electronically signed by Kenisha Melton 01-01-2005 04:41:20 PM documented i n this encounter Plan of Treatment Not on filedocumented as of this encounter Visit Diagnoses Not on filedocumented in this encounter"
--- OUTSIDE RECORDS SUMMARY | ~2019-12-13 | XMS | Encounter Summary ---
Demographics + + + | Address | [address] | | | [place] [address] | + + + | Home Phone [...] Providers + +------+ + | Care Cardiology Tech Name | Role | Phone | [...] | | | Ave Mailcode: CH4S | [facility] | | | | | [facility] | [place], [place] | | | | | and Healing, | [address] | | | | | [facility] | [phone] | | | | | Floor [place], [place] | | | | | | [address] | | | | | | [phone] | | | +--------+ + + + [...]
--- OUTSIDE RECORDS SUMMARY | ~2019-12-13 | XMS | Encounter Summary ---
Demographics + + + | Address | [address] | | | [place] [address] | + + + | Home Phone [...] Providers + +------+ + | Care Head Porter Name | Role | Phone | [...] | | | | Clinical Nutrition | [place], [place] | | | | | [address] | [address] | | | | | Loop Mailcode: OPC5 | [phone] | | | | | Outpatient Clinic | | | | | | [facility] | | | | | | [place] [address] | | | | | | [phone] | | | +--------+ + + + [...] + + + | [facility] | [address] | [place] [address] | | | LABORATORY | | | [...] | uIU/ml | | | | | [facility] | | | | | | Laboratories. | | | | + + + + + + + + | Specimen | + + | | + + + + + + + | Performing | Address | City/State/Zipcode | Phone Number | | Organization | | | | + + + + + | [facility] | [address] | [place] [address] | | | LABORATORY | | | [...] + + + | [facility] | [address] | [place] [address] | | | LABORATORY | | | [...] | | | SERUM | performed by [place] | | | | | | [facility] | | | | | | Laboratories. | | | | + + + + + + + + | Specimen | + + | | + + + + + + + | Performing | Address | City/State/Zipcode | Phone Number | | Organization | | | | + + + + + | [facility] | [address] | [place] [address] | | | LABORATORY | | | [...] + + | [facility] DEPARTMENT OF | [address] | [place] [address] | | | PATHOLOGY | [address] | | | + + + + + | [facility] | [address] | [place] [address] | | | PATHOLOGY | [address] | | | + + + + + documented in this encounter Visit Diagnoses Not on filedocumented in this encounter"
--- OUTSIDE RECORDS SUMMARY | ~2019-12-13 | XMS | Encounter Summary ---
Demographics + + + | Address | [address] | | | [place] [address] | + + + | Home Phone [...] Team Providers + +------+ + | Care Burnisher And Bumper Name | Role | Phone | + [...] | | | | | (degenerativ | [place], [place] | [place] | | | | | e joint | [address] | [address] | | | | | disease) of | | Phone: | | | | | knee Knee | | [phone] | | | | | pain Major | | Fax: | | | | | depressive | | [phone] | | | | | disorder, | [...] / | Office | [facility] | Lukasz Charles, | Major Depressive | | 2007 | Visit | [address] | PhD [address] | Disorder, Recurrent | | | | Mailcode: [facility] | [place], [place] | Episode, Moderate | | | | [place] [facility] | [address] | ([facility]); LBP (Low Back | | | | and Healing, | [phone] | Pain); Fibromyalgia | | | | | | syndrome 729.1; | | | | Floor [place], [place] | | Adjustment Disorder | | | | [address] | | with Anxiety; | | | | [phone] | | Bilateral Knee Pain; | | [...] skills during intense pain episode s. Diagnosis: [place] I: 1. (296.32) Major depressive disorder, recurrent, moderate. 2. (309.24) Adjustment disorder with anxiety. 3. 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 [place] II: Deferred [place] III: abdominal pain, migraine headache, low back pain. [place] IV: low finances [place] V: GAF 55-60 Plan: return with next medical follow-up appointment. Check mood, knee surgery, relaxatio n, activity, distraction. Continue cognitive/behavioral therapy. Total time spent with patient was approximately 45 minutes. LUKASZ CHARLES [facility] [address] [facility][1] And [facility], [address] [place] [address] documented in this encount er Plan of Treatment + + +--------+ + + | Name | Type | Priori | Associated Diagnoses | Order Schedule | | | | ty | | | + + +--------+ + + | IN PSYCHOTHERPY, | Procedures | Routin | Major Depressive | Ordered: 08/13/2007 | | OFFICE (48-30) | | e | Disorder, Recurrent | | | | | | Episode, Moderate | | | | | | ([facility]) LBP (Low Back | | [...]
--- OUTSIDE RECORDS SUMMARY | ~2019-12-13 | XMS | Encounter Summary ---
Demographics + + + | Address | [address] | | | [place] [address] | + + + | Home Phone [...] Providers + +------+ + | Care Aircraft Engine Mechanic Supervisor Name | Role | Phone | [...] 2005 | | Bariatric [address] | [address] | Pain (Primary Dx) | | | | [address] | [address] | | | | | Mailcode: L223A | [place], [place] | | | | | Physician's Sharmila | [address] | | | | | [address] [place], [place] | [phone] | | | | | [address] | | | | | | [phone] | | | +--------+ + + + [...] [facility] | [address] | [place], [place] | | | [facility] | | [address] | | + + + + + documented in this encounter Visit Diagnoses + + | Diagnosis | + + | Chronic abdominal pain - Primary Abdominal pain, unspecified site | + + documented in this encounter"
--- OUTSIDE RECORDS SUMMARY | ~2019-12-13 | XMS | Encounter Summary ---
Demographics + + + | Address | [address] | | | [place] [address] | + + + | Home Phone [...] Providers + +------+ + | Care Territory Outside Sales Manager Name | Role | Phone [...] | | | [facility] | [place], [place] | | | | | [address] | [address] | | | | | [address] | [phone] | | | | | Physician's | | | | | | Pavilion, 1st floor | | | | | | [place], [place] | | | | | | [address] | | | | | | [phone] | | | +--------+ + + + [...]
--- OUTSIDE RECORDS SUMMARY | ~2019-12-13 | XMS | Encounter Summary ---
Demographics + + + | Address | [address] | | | [place] [address] | + + + | Home Phone [...] Providers + +------+ + | Care Social Psychologist Name | Role | Phone | [...] | 11/16/ | Refill | [facility] | Alanis, | Medication Refill | | 2019 | | MEDICINE [address] | MD Petrona | | | | | [place], | [address] [place] | | | | | [place] [address] | [place] [address] | | | | | [phone] | [phone] | | | | | | | [...] Visit | | [facility] [address] | | | | | [address] [place] | | | | | | [place] [address] | | | | | | [phone] | | | | | | | | +--------+---------+ + + + | 12/20/ | Office | Otolaryngology | Ulysses Genao MD | | | 2019 | Visit | | [address] | | | | | | [place] | | | | | | [place] [address] | | | | | | [phone] | | | | | | | | +--------+---------+ + + + | 02/15/ | Office | Internal Medicine | Alanis, | | | 2019 | Visit | | MD [place]rona | | | | | | [address] [place] | | | | | | [place] [address] | | | | | | [phone] | | | | | | | | +--------+---------+ + + + documented as of this encounter Visit Diagnoses Not on filedocumented in this encounter"
--- OUTSIDE RECORDS SUMMARY | ~2019-12-13 | XMS | Encounter Summary ---
Demographics + + + | Address | [address] | | | [place] [address] | + + + | Home Phone [...] Providers + +------+ + | Care Oil Burner Name | Role | Phone | [...] [facility] | Alanis, | Follow-up | | 2018 | | MEDICINE [address] | MD Petrona | | | | | [place], | [address] [facility] | | | | | [place] [address] | [place] [address] | | | | | [phone] | [phone] | | | | | | | [...] her xray reports that were send from [facility]. Records are in chart now. Patient wants to know if an produce production team member provider can review them since pcp is [...] | | | | | [place] [address] | | | | | | [phone] | | | | | | | | +--------+---------+ + + + | 12/20/ | Office | Otolaryngology | Ulysses Genao MD | | | 2019 | Visit | | [address] | | | | | | [address] [place] | | | | | | [place] [address] | | | | | | [phone] | | | | | | | | +--------+---------+ + + + | 02/15/ | Office | Internal Medicine | Alanis, | | | 2019 | Visit | | MD [place]ron[place] | | | | | | [address] | | | | | | [place] [address] | | | | | | [phone] | | | | | | | | +--------+---------+ + + + documented as of this encounter Visit Diagnoses Not on filedocumented in this encounter"
--- OUTSIDE RECORDS SUMMARY | ~2019-12-13 | XMS | Encounter Summary ---
Demographics + + + | Address | [address] | | | [place] [address] | + + + | Home Phone [...] Providers + +------+ + | Care Dental Resident Name | Role | Phone | + +------+ + | Sulaiman Carrera MD | PCP | | + +------+ + Encounter Details +--------+ + + + + | Date | Type | Department | Care Team | Description | +--------+ + + + + | 08/09/ | Hospital | Diagnostic Imaging | | | | 2013 | Encounter | Services at [facility] | | | | | | [address] | | | | | | Clementina Winkler HIWANG | | | | | | [facility], [address] [place] [address] | | | | | | [place], [place] | | | | | | [address] | | | | | | [phone] | | | +--------+ + + + [...] + +---------+ + + | [facility] DEPARTMENT OF | | | | [...]
--- OUTSIDE RECORDS SUMMARY | ~2019-12-13 | XMS | Encounter Summary ---
Demographics + + + | Address | [address] | | | [place] [address] | + + + | Home Phone [...] Team Providers + +------+ + | Care Tinning Equipment Tender Name | Role | Phone | [...] + | 10/05/ | Refill | [facility] | Alanis, | Medication Refill | | 2017 | | MEDICINE [address] | MD Petrona | | | | | [place], | [address] [facility] | | | | | [place] [address] | [place] [address] | | | | | [phone] | [phone] | | | | | | | [...] Telephone Encounter - Maggie Montoya LPN - 10/06/2017 5:01 PM PDTLast appt: 09/22/17 Next appt: 10/15/17 docum ented in this encounter Plan of [...] | | | | | [place] [address] | | | | | | [phone] | | | | | | | | +--------+---------+ + + + | 12/20/ | Office | Otolaryngology | Ulysses Genao MD | | | 2019 | Visit | | [address] | | | | | | [address] [place] | | | | | | [place] [address] | | | | | | [phone] | | | | | | | | +--------+---------+ + + + | 02/15/ | Office | Internal Medicine | Alanis, | | | 2019 | Visit | | MD [place]rona | | | | | | [address] [place] | | | | | | [place] [address] | | | | | | [phone] | | | | | | | | +--------+---------+ + + + documented as of this encounter Visit Diagnoses Not on filedocumented in this encounter"
--- OUTSIDE RECORDS SUMMARY | ~2019-12-13 | XMS | Encounter Summary ---
Demographics + + + | Address | [address] | | | [place] [address] | + + + | Home Phone [...] Team Providers + +------+ + | Care Milk Route Deliverer Name | Role | Phone | [...] | | | [facility] | [place], [place] | | | | | [address] | [address] | | | | | [address] | [phone] | | | | | Physician's | | | | | | Pavilion, 1st floor | | | | | | [place], [place] | | | | | | [address] | | | | | | [phone] | | | +--------+ + + + [...]
--- OUTSIDE RECORDS SUMMARY | ~2019-12-13 | XMS | Encounter Summary ---
[...] Providers + +------+ + | Care Supervisor Pairing And Inspecting Name | Role | Phone | + [...] + + | 03/02/ | Office | [facility] | Emmy-Tacliffordti, | Neck pain on right | | 2018 | Visit | MEDICINE [address] | MD Petrona | side (Primary Dx); | | | | [address] [place], | [address] [place] | Primary stabbing | | | | [place] [address] | [place] [address] | headache; | | | | [phone] | [phone] | Non-intractable | | | | | [...] Medical Student - 03/02/2018 9:30 AM PDT [facility] PROGRESS NOTE Pt. Name/Age/: Belinda Meehan 58 y.o. 1960 Med. Record Number: [id number] HPI: Belinda Meehan is a 58 y.o. [...] [facility] MEDICAL PROCEDURE UNIT Allergies Allergen Reactions Levofloxacin Hives,Itching,Rash Xmhwdbkqgn-Cdkf-Fvcwycpc Hives,Rash Cephalexin Hives Ciprofloxacin Hives,Rash Clarithromycin Hives,Rash [...] | | | | | [place] [address] | | | | | | [phone] | | | | | | | | +--------+---------+ + + + | 12/20/ | Office | Otolaryngology | Ulysses Genao MD | | | 2019 | Visit | | [address] | | | | | | [address] [place] | | | | | | [place] [address] | | | | | | [phone] | | | | | | | | +--------+---------+ + + + | 02/15/ | Office | Internal Medicine | Alanis, | | | 2019 | Visit | | MD [place] | | | | | | [address] [place] | | | | | | [place] [address] | | | | | | [phone] | | | | | | | [...] | | FILTRATION | mL/min/1.73m2 | [facility] | | | [facility] | RATE,ESTIMATED | | MEDICAL | | | | mL/min/1.83i7Zlpx than | | CENTER - | | [...] | 9.0 | 8.3 - 10.5 | [facility] | | | | | mg/dL | [facility] | | | | | | MEDICAL | | | | | | CENTER - | | | | | | LABORATORY | | + + + + + + | Albumin | 4.4 | 3.2 - 5.0 g/dL | [facility] | | | | | | [facility] | | | | [...] [address]. | [address] | [place] | [phone] | | [facility] | | [address] | | | - LABORATORY | | [...] [address] | [place] | [phone] | | [facility] | | [address] | | | - LABORATORY | | [...] [address] | [place] | [phone] | | [facility] | | [address] | | | - LABORATORY | | [...]
--- OUTSIDE RECORDS SUMMARY | ~2019-12-13 | XMS | Encounter Summary ---
Demographics + + + | Address | [address] | | | [place] [address] | + + + | Home Phone [...] Providers + +------+ + | Care Mail Handlers Supervisor Name | Role | Phone | [...] as of this encounter Progress Notes Byron, Hose Handler In - 01/12/2005 6:46 AM PDTClinic Date: [...] months. Chris Padgett M.D. CD / HS [id number] / [id number] / [id number] / Tdocumented in this encounter Plan of Treatment Not on filedocumented as of this encounter Visit Diagnoses Not on filedocumented in this encounter"
--- OUTSIDE RECORDS SUMMARY | ~2019-12-13 | XMS | Encounter Summary ---
Demographics + + + | Address | [address] | | | [place] [address] | + + + | Home Phone [...] + +------+ + | Care Food Service Assistant Name | Role | Phone | [...] | 11/26/ | Refill | [facility] | Alanis, | Medication Refill | | 2018 | | MEDICINE [address] | MD Petron[place] | | | | | MALIK [place], | [address] | | | | | [place] [address] | [place] [address] | | | | | [phone] | [phone] | | | | | | | [...] request refill, patient can be reached at [phone] documented in this [facility] Plan of Treatment +--------+---------+ + + [...] | | | | | [place] [address] | | | | | | [phone] | | | | | | | | +--------+---------+ + + + | 12/20/ | Office | Otolaryngology | Ulysses Genao MD | | | 2019 | Visit | | [address] | | | | | | [address] [place] | | | | | | [place] [address] | | | | | | [phone] | | | | | | | | +--------+---------+ + + + | 02/15/ | Office | Internal Medicine | Alanis, | | | 2019 | Visit | | MD Petrona | | | | | | [address] [place] | | | | | | [place] [address] | | | | | | [phone] | | | | | | | | +--------+---------+ + + + documented as of this encounter Visit Diagnoses + + | Diagnosis | + + | Chronic diarrhea Diarrhea | + + documented in this encounter"
--- OUTSIDE RECORDS SUMMARY | ~2019-12-13 | XMS | Encounter Summary ---
Demographics + + + | Address | [address] | | | [place] [address] | + + + | Home Phone [...] Team Providers + +------+ + | Care Marker Delivery Name | Role | Phone | + +------+ + | Sulaiman Carrrea MD | PCP | | + +------+ [...] | | Order | Loop Physician's | [place], [place] | | | | | [place], [facility] floor | [address] | | | | | [place], [place] | [phone] | | | | | [address] | | | | | | [phone] | | | +--------+ + + + [...]
--- OUTSIDE RECORDS SUMMARY | ~2019-12-13 | XMS | Encounter Summary ---
Demographics + + + | Address | [address] | | | [place] [address] | + + + | Home Phone [...] Providers + +------+ + | Care Quality Assurance Monitor Chassis Name | Role | Phone | + [...] + | 05/04/ | Refill | [facility] | Alanis, | Medication Refill | | 2016 | | MEDICINE [address] | MD Petrona | | | | | [place], | [address] [facility] | | | | | [place] [address] | [place] [address] | | | | | [phone] | | | | | | | [...] | | | | | [place] [address] | | | | | | [phone] | | | | | | | | +--------+---------+ + + + | 12/20/ | Office | Otolaryngology | Ulysses Genao MD | | | 2019 | Visit | | [address] | | | | | | [address] [place] | | | | | | [place] [address] | | | | | | [phone] | | | | | | | | +--------+---------+ + + + | 02/15/ | Office | Internal Medicine | Alanis, | | | 2019 | Visit | | MD [place]rona | | | | | | [address] [place] | | | | | | [place] [address] | | | | | | [phone] | | | | | | | | +--------+---------+ + + + documented as of this encounter Visit Diagnoses Not on filedocumented in this encounter"
--- OUTSIDE RECORDS SUMMARY | ~2019-12-13 | XMS | Encounter Summary ---
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
--- OUTSIDE RECORDS SUMMARY | ~2019-12-13 | XMS | Encounter Summary ---
Demographics + + + | Address | [address] | | | [place] [address] | + + + | Home Phone [...] Providers + +------+ + | Care Color Adviser Name | Role | Phone | [...] | | | | | | | [address] | | | | | | | [address] | | | | | | | Pavilion | | | | | | | [place], [place] | | | | | | | [address] | | | | | | | Phone: | | | | | | | [phone] | | | | | | | Fax: | | | | | | | [phone] | +--------+--------+ + + + + Encounter Details +--------+ + + + + | Date | Type | Department | Care Team | Description | +--------+ + + + + | 02/22/ | Hospital | [facility] [address] | Hai Hoyos, | | | 2008 | Encounter | [address] | | | | | | [address] [place] | | | | | | [place], | | | | | | [place] [address] | | | | | | [phone] | | | +--------+ + + + [...] Brief Hospital Course: Patient was admitted to [facility] short stay surgery. Patient was taken [...] business hours at or page the orthopedist supervisor metal furniture fabrication after regular business hours at [phone]. If you have any of the following: [...] appointment, please call our scheduling line at [phone]. Follow Up Tests: (Tests at [facility] must be entered into BBspace) none Condition On Discharge: stable Vital Signs [...] Brief Hospital Course: Patient was admitted to [facility] short stay surgery. Patient was taken [...] business hours at or page the orthopedist supervisor metal furniture fabrication after regular business hours at [phone]. If you have any of the following: [...] at . Follow Up Tests: (Tests at [facility] must be entered into Epic) none [...] [facility] | [address] | [place] [address] | | | PATHOLOGY | [address] [...] [facility] | [address] | [place] [address] | | | PATHOLOGY | [address] [...] | | | | | performed at [facility] | | | | | | Wayne [...] [facility] | [address] | [place] [address] | | | PATHOLOGY | [address] [...] [facility] | [address] | [place] [address] | | | PATHOLOGY | [address] [...] | | | | | performed at [facility] | | | | | | Wayne [...] [facility] | [address] | [place] [address] | | | PATHOLOGY | [address] [...] [facility] | [address] | [place] [address] | | | PATHOLOGY | [address] [...] Lab) | | | | | | [facility] | | | | | | [address] | | | | | | [address] | | | | | | [place] [address] | | | | + + + + + + + + | Specimen | + + | | + + + + + + + | Performing | Address | City/State/Zipcode | Phone Number | | Organization | | | | + + + + + | [facility] | [address] | [place] [address] | | | PATHOLOGY | [address] [...] Performed At | + + + | [id number] | | | [id number] | | | [place] [id number] | | | Date: 02/22/2009 Attending Surgeon: | | | Hai Hoyos MD Tire Trucker(s): | | | Shantel Whipple Preoperative | | | Diagnosis(es): Left symptomatic scapula lesion. Postoperative | | | Diagnosis(es): Left symptomatic scapula lesion. Procedures | | | Performed: 1. Curettage and bone grafting of the left scapular | | | lesion. 2. Open biopsy, left scapular lesion. | | | Donna Clancy served as my medical assistant cardiology because no other qualified | | | [...] | aforementioned. MD ARTIS Wei / SHARIF [id number] / | | | [id number] / [id number] / | | + + + + + | Procedure Note | + + | Hai Hoyos MD - 02/22/2009 12:00 AM PDT [id number] | | [id number] [place] | | [id number] Date: 02/22/2009 Attending Surgeon: Hai | | MD Romain Tire Trucker(s): Raj Whipple. Preoperative | | Diagnosis(es):Left symptomatic scapula lesion. Postoperative Diagnosis(es):Left | | symptomatic scapula lesion. Procedures Performed:1. Curettage and bone grafting of | | the left scapular lesion.2. Open biopsy, left scapular lesion. Donna Clanyc | | served as my medical assistant cardiology because no other qualified help wasavailable. Anesthesia:General [...] plan is as aforementioned. CHARU Wei / [id number] / [id number] / [id number] /D: | | 02/22/2009T: 02/22/2009 | | [...] |Hai Hoyos MD | |ZA / | |[id number] / [id number] / [id number] / | | | | | | [...] + + + + | [facility] DEPARTMENT OF | [address] | [place] [address] | | | PATHOLOGY | [address] | | | + + + + + | [facility] DEPARTMENT OF | [facility] | [place] [address] | | | PATHOLOGY | [address] [...]
--- OUTSIDE RECORDS SUMMARY | ~2019-12-13 | XMS | Encounter Summary ---
Demographics + + + | Address | [address] | | | [place] [address] | + + + | Home Phone [...] Team Providers + +------+ + | Care Match Marker Name | Role | Phone | [...] | | | | Clinical Nutrition | [place], [place] | | | | | [address] | [address] | | | | | Loop Mailcode: OPC5 | [phone] | | | | | Outpatient Clinic | | | | | | [facility] | | | | | | [place] [address] | | | | | | [phone] | | | +--------+ + + + [...] | + + + + + | [facility] | [address] | [place] [address] | | | LABORATORY | | | [...] | pg/mL | | | | | [facility] [place] [...] | + + + + + | [facility] | [address] | [place] [address] | | | LABORATORY | | | [...] + + | [facility] DEPARTMENT OF | [address] | [place] [address] | | | PATHOLOGY | [address] | | | + + + + + | [facility] DEPARTMENT OF | [address] | [place] [address] | | | PATHOLOGY | [address] [...] | + + + + + | [facility] DEPARTMENT OF | [address] | [place] [address] | | | PATHOLOGY | [address] | | | + + + + + | [facility] DEPARTMENT OF | [address] | [place] [address] | | | PATHOLOGY | [address] | | | + + + + + documented in this encounter Visit Diagnoses Not on filedocumented in this encounter"
--- OUTSIDE RECORDS SUMMARY | ~2019-12-13 | XMS | Encounter Summary ---
Demographics + + + | Address | [address] | | | [place] [address] | + + + | Home Phone [...] Providers + +------+ + | Care Fleet Manager Name | Role | Phone | [...] | | | [facility] | [place], [place] | and counseling; | | | | [address] | [address] | [place] | | | | [address] | [phone] | | | | | Physician's Pavilion | | | | | | Physician's | | | | | | Pavilion [place], | | | | | | [place] [address] | | | | | | [phone] | | | +--------+ + + + [...]
--- OUTSIDE RECORDS SUMMARY | ~2019-12-13 | XMS | Encounter Summary ---
Demographics + + + | Address | [address] | | | [place] [address] | + + + | Home Phone [...] Team Providers + +------+ + | Care Replanting Machine Crew Name | Role | Phone | [...] 07/30/ | Office | [facility] | Lukasz Charles, | Major Depressive | | 2006 | Visit | [address] | PhD [address] | Disorder, Recurrent | | | | Mailcode: [facility] | [place], [place] | Episode, Moderate; | | | | [facility] | [address] | Chronic Abdominal | | | | and Healing, | [phone] | Pain; Herniated | | | | Building | | Lumbar | | | | Floor [place], [place] | | Intervertebral Disc | | | | [address] | | L4-5; 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 Ms. Meehan has depression and frustration. She is having some difficulty increasing her a ctivity level but she is putting forth effort. She appears to have good insight. Diagnosis: Milld[place] I: 1. (296.32) Major depressive disorder, recurrent, moderate. 2. (309.24) Adjustment disorder with anxiety. 3. 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 Mil[place]ale II: Deferred Milldale III: abdominal pain, migraine headache, low back pain. Mil[place] IV: low finances Milldale V: GAF 50 Plan: Return in 2 weeks. Check pacing, relaxation, activity. Check trip to [place]. Check mood. Continue cognitive/behavioral therapy. Total time spent with patient was approximately 45 minutes. LUKASZ CHARLES PHD [facility] [address] [facility] [address] [address] documented in this encount er Plan of Treatment + + +--------+ + + | Name | Type | Priori | Associated Diagnoses | Order Schedule | | | | ty | | | + + +--------+ + + | [facility] PSYCHOTHERPY, | Procedures | Routin | Major Depressive | Ordered: 07/31/2006 | | OFFICE (45-77) | | e | Disorder, Recurrent | [...]
--- OUTSIDE RECORDS SUMMARY | ~2019-12-13 | XMS | Encounter Summary ---
Demographics + + + | Address | [address] | | | [place] [address] | + + + | Home Phone [...] Team Providers + +------+ + | Care Circulating Process Inspector Name | Role | Phone | [...] | 07/19/ | Refill | [facility] | Alanis, | Medication Refill | | 2019 | | MEDICINE [address] | MD Petron[place] | | | | | [place], | [address] | | | | | [place] [address] | [place] [address] | | | | | [phone] | [phone] | | | | | | | [...] | | | | | [place] [address] | | | | | | [phone] | | | | | | | | +--------+---------+ + + + | 12/20/ | Office | Otolaryngology | Ulysses Genao MD | | | 2019 | Visit | | [address] | | | | | | [place] | | | | | | [place] [address] | | | | | | [phone] | | | | | | | | +--------+---------+ + + + | 02/15/ | Office | Internal Medicine | Alanis, | | | 2019 | Visit | | MD [place] | | | | | | [address] [place] | | | | | | [place] [address] | | | | | | [phone] | | | | | | | | +--------+---------+ + + + documented as of this encounter Visit Diagnoses Not on filedocumented in this encounter"
--- OUTSIDE RECORDS SUMMARY | ~2019-12-13 | XMS | Encounter Summary ---
Demographics + + + | Address | [address] | | | [place] [address] | + + + | Home Phone [...] Providers + +------+ + | Care Gate Tender Name | Role | Phone | [...] as of this encounter Progress Notes Interface, Swatch Cutter In - 08/19/2005 2:05 AM PST [id number] [facility] Clinic Date: 07/29/2005 Clinic: Hematology [...] aggressive iron supplementation. Lukasz Sellers M.D. distribution sales representative [employer] / SHARIF [id number] / [id number] / [id number] / [id number] cc: Pedrito Gutierrez M.D. [address] [place] [address] Electronically signed by Lukasz Sellers 08-18-2005 01:28:12 PM documented i n this encounter Plan of Treatment Not on filedocumented as of this encounter Visit Diagnoses Not on filedocumented in this encounter"
--- OUTSIDE RECORDS SUMMARY | ~2019-12-13 | XMS | Encounter Summary ---
Demographics + + + | Address | [address] | | | [place] [address] | + + + | Home Phone [...] Team Providers + +------+ + | Care Trauma Surgeon Name | Role | Phone | [...] | | [facility] | [place], [place] | | | | | [address] | [address] | | | | | [address] | [phone] | | | | | Physician's | | | | | | Pavilion, 1st floor | | | | | | [place], [place] | | | | | | [address] | | | | | | [phone] | | | +--------+ + + + [...]
--- OUTSIDE RECORDS SUMMARY | ~2019-12-13 | XMS | Encounter Summary ---
[...] Providers + +------+ + | Care Flight Control Tower Operator Name | Role | Phone | [...] as of this encounter Discharge Summaries Interface, Dowel Pin Man In - 08/30/2005 2:07 AM PST [id number] GEOVANNI Barnes Admission Date: 07/24/2005 Discharge Date: [...] for an appointment. Joanna Ritchie M.D. / [id number] / [id number] / [id number] / Electronically signed by Chris Padgett 08-29-2005 03:28:23 PM documented i n this encounter Plan of Treatment Not on filedocumented as of this encounter Visit Diagnoses Not on filedocumented in this encounter"
--- OUTSIDE RECORDS SUMMARY | ~2019-12-13 | XMS | Encounter Summary ---
Demographics + + + | Address | [address] | | | [place] [address] | + + + | Home Phone [...] Providers + +------+ + | Care Manager Protein Name | Role | Phone | + [...] | at [place] [place] | [facility] | | | | | [address] | [place] [address] | | | | | [address] | | | | | | [place], 2nd floor | | | | | | [place], [place] | | | | | | [address] | | | | | | [phone] | | | +--------+ + + + [...]
--- OUTSIDE RECORDS SUMMARY | ~2019-12-13 | XMS | Encounter Summary ---
Demographics + + + | Address | [address] | | | [place] [address] | + + + | Home Phone [...] Providers + +------+ + | Care Automatic Buffing Wheel Former Name | Role | Phone | [...] Rehabilitatio | bilateral | i, | [address] | | | | n | low back | Sulaiman[place] | [place], | | | | | pain with | MD [address] | [place] [address] | | | | | left-sided | [address] | Phone: | | | | | sciatica | [place], | [phone] | | | | | Muscle spasm | [place] | Fax: | | | | | | [address] | [phone] | | | | | Fibromyalgia | Phone: | | | | | | | [phone] | | | | | | | Fax: | | | | | | | [phone] | | +--------+ + + + + + Reason for Visit + + + | Reason | Comments | + + + | Follow-up | 2 month | + + + Encounter Details +--------+---------+ + + + | Date | Type | Department | Care Team | Description | +--------+---------+ + + + | 05/04/ | Office | [facility] | Emmy-Kamlesh, | Chronic bilateral | | 2017 | Visit | MEDICINE [address] | MD John | low back pain with | | | | [address] [place], | [address] [facility] | left-sided sciatica | | | | [place] [address] | [place] [address] | (Primary Dx); Muscle | | | | [phone] | [phone] | spasm; | | | | | [...] also help with symptoms. Date Last Reviewed: 07/29/201519997800-2464 [employer]. [address] [place] [address]. All righ ts reserved. This information is [...] [facility]) Depression Diarrhea Dumping syndrome Fatigue fracture of vertebra Fibromyalgia Glaucoma Hyperparathyroidism ([facility]) Hypothyroidism IBS (irritable bowel syndrome) Idiopathic scoliosis Leg edema Lumbar postlaminectomy syndrome Lumbar radiculopathy primarily right 01/04/2015 Meniere syndrome Migraines Muscle cramping Muscle spasm Myalgia Nonalcoholic hepatosteatosis Obesity Opiate dependence ([facility]) Orthostatic hypotension OLIVER (obstructive sleep apnea) Osteoarthritis, generalized Osteopenia Osteoporosis Peripheral neuropathy ([facility]) Rheumatoid arthritis ([facility]) [...] (See Comments) Confused and questionable for seizures Fpehzbttwk-Gzan-Urzbhzwi Cephalexin Hives Ketorolac Hives Morphine Swelling Tramadol Hcl Nausea Only Zeyyqfzbrp-Dqux-Tzadxjpu Hives and Rash Ciprofloxacin Hives and Rash [...] back pain with left-sided sciatica - * [facility] Physiatry - [facility] Referral; Future - CBC with Differential; Future - Comprehensive Metabolic Panel; Future - TSH; Future - CK Total; Future - C-Reactive Protein; Future 2. Muscle spasm - * [facility] Physiatry - [facility] Referral; Future - CBC with Differential; Future - Comprehensive Metabolic Panel; Future - TSH; Future - CK Total; Future - C-Reactive Protein; Future - methocarbamol (ROBAXIN) 750 mg tablet; take 1 tablet by mouth twice a day Dispense: 60 t ablet; Refill: 3 3. Fibromyalgia - * [facility] Physiatry - [facility] Referral; Future - CBC with Differential; Future - Comprehensive Metabolic Panel; Future - TSH; Future - CK Total; Future - C-Reactive Protein; Future 4. Left hip pain - XR Hip Left 2-3 Views; Future FOLLOW-UP No Follow-up on file. Note: Parts of this documentwere created using [employer] speech recognition software. As a r esult, there may be unintended word spelling errors. Every attempt was made to correct the dictation. Gayle colin in this encounter Miscellaneous Notes Addendum Note - John Thapa MD - 05/04/2017 2:30 PM PST Addended by: JOHN HOPKINS on: 05/04/2017 17:33 Modules accepted: Orders Kecia barrera in this encounter Plan of Treatment +--------+---------+ + + + | Date | Type | Specialty | Care Team | Description | +--------+---------+ + + + | 12/20/ | Office | Audiology | Elisabet Munson MS | | | 2019 | Visit | | [facility] [address] | | | | | | [place] | | | | | | [place] [address] | | | | | | [phone] | | | | | | | | +--------+---------+ + + + | 12/20/ | Office | Otolaryngology | Ulysses Genao MD | | | 2019 | Visit | | [address] | | | | | | [address] [place] | | | | | | [place] [address] | | | | | | [phone] | | | | | | | | +--------+---------+ + + + | 02/15/ | Office | Internal Medicine | Alanis, | | | 2019 | Visit | | MD John | | | | | | [address] [place] | | | | | | [place] [address] | | | | | | [phone] | | | | | | | [...] + | [facility] | [address] | [place] | [phone] | | [facility] | | [address] | | | - LABORATORY | | [...] [address] | [place] | [phone] | | [facility] | | [address] | | | - LABORATORY | | [...] | samples are screened | uIU/mL | [facility] | | | | using a 2nd [...] + | [facility] | [address] | [place] | [phone] | | [facility] | | [address] | | | - LABORATORY | | [...] | 0.72 | 0.60 - 1.30 | [facility] | | | | | mg/dL | [...] [facility] | | | [place] | RATE,ESTIMATED | | MEDICAL | | | | mL/min/1.54k0Xqko than | | CENTER - | | [...] [address] | [place] | [phone] | | [facility] | | [address] | | | - LABORATORY | | [...] | | | Eosinophils | | | NATHAN | | | [...] [address] | [place] | [phone] | | [facility] | | [address] | | | - LABORATORY | | [...]
--- OUTSIDE RECORDS SUMMARY | ~2019-12-13 | XMS | Encounter Summary ---
Demographics + + + | Address | [address] | | | [place] [address] | + + + | Home Phone [...] Providers + +------+ + | Care Vacuum Evaporation Operator Name | Role | Phone | [...] | Visit | [address] [address] | ORGAN PIPE VOICER | syndrome [address] | | | | [address] | | (Primary Dx); | | | | Physician's | | Fibromyalgia | | | | Pavilion, 4th Floor | | | | | | [place], [place] | | | | | | [address] | | | | | | [phone] | | | +--------+---------+ + + + [...] + + +--------+ + + | [place] INJECT TRIGGER | Procedures | Routin | [...]
--- OUTSIDE RECORDS SUMMARY | ~2019-12-13 | XMS | Encounter Summary ---
Demographics + + + | Address | [address] | | | [place] [address] | + + + | Home Phone [...] [place] | | | | | [place] [address] | [place] [address] | | | | | [phone] | [phone] | | | | | | | [...] | | | | | [place] [address] | | | | | | [phone] | | | | | | | | +--------+---------+ + + + | 12/20/ | Office | Otolaryngology | Ulysses Genao MD | | | 2019 | Visit | | [address] | | | | | | [place] | | | | | | [place] [address] | | | | | | [phone] | | | | | | | | +--------+---------+ + + + | 02/15/ | Office | Internal Medicine | Alanis, | | | 2019 | Visit | | MD [place] | | | | | | [address] [place] | | | | | | [place] [address] | | | | | | [phone] | | | | | | | | +--------+---------+ + + + documented as of this encounter Visit Diagnoses Not on filedocumented in this encounter"
--- OUTSIDE RECORDS SUMMARY | ~2019-12-13 | XMS | Encounter Summary ---
Demographics + + + | Address | [address] | | | [place] [address] | + + + | Home Phone [...] Team Providers + +------+ + | Care Bioinformatics Assistant Name | Role | Phone | + +------+ + | Petrona Thapa | PCP | | | MD | | | + +------+ + Reason for Visit + +--------+ + | Reason | Onset | Comments | | | Date | | + +--------+ + | Vomiting | 03/05/ | | | | 2017 | | + +--------+ + Encounter Details +--------+ + + + + | Date | Type | Department | Care Team | Description | +--------+ + + + + | 03/05/ | Telephone | [facility] | Alanis, | Vomiting | | 2017 | | MEDICINE [address] | MD Petrona | | | | | [place], | [address] [facility] | | | | | [place] [address] | [place] [address] | | | | | [phone] | [phone] | | | | | | | [...] Notes Telephone Encounter - Mayda Montoya - 03/18/2018 1:00 PM PDTCalled and spoke to nurse blake li if we are needing to continue the PA on the Phenadoz. She stated that patient was hospitl ized and was recently discharged and requested that I call Taniya with Dr. Vivas's office to see if this medication is still needed. Taniya said that she has surgery and she didn't compl ain of any nausea. She stated to hold off on this PA request and they will follow up with he r on the . Called Tayo Mcdonough in [facility] and spoke to Jung letting him know that we are n ot submitting a PA request at this time since patient is following up with Dr. Vivas. [facility] ed prior auth request today. TTelephone Encounter - Mayda Montoya - 03/10/2018 4:46 PM PDTReceived prior auth request [facility] regarding Phenadoz (promethazine). Noted on request that insurance requested to try: Prochlorperazine Granisetron HCL Would these be appropriate for patient or would you like to continue with the Phenadoz. Rich nk you. elephone Encounter - Lisa Hurley RN - 03/05/2018 4:43 PM PDTCalled patient back. Her insurance won't cov er the Phenergan suppositories either. Called Tayo Mcdonough in [place] and spoke with [employer] Both the Zofran and Phenergan suppository orders are awaiting PA. I encouraged patient to have her son bring her back to the ER as her condition continued to deteriorate. She hasn't been able to keep anything down. She even tried a popsicle and that made her vomit. Her son is with her right now and she agrees to have him take her in. elephone Encounter - Sia Bai - 03/05 12:22 PM PDTPatient called back . Patient can be reached at [phone] signed by Sia Bai at 03/05/2018 12:24 PM PDTTelephone Encounter - Lisa Hurley RN - 03/05/2018 11:51 AM PDTMD ordered Phenergan suppositories. Called patient to let her know . VM left for her to call me back. elephone Encounter - Petrona Thapa MD - 03/05/2018 10:45 AM PDT We can try a PA for the Zofran suppositories if you can get the form in time today. Electron ically signed by Petrona Thapa MD at 03/05/2018 10:46 AM PDTTelephone Encounte r - Lisa Hurley RN - 03/05/2018 9:21 AM PDTCalled and spoke with patient. Says she we nt to the ER at [facility] yesterday by ambulance due to severe N/V, diarrhea, inability to eat or drink anything. She was told she has a bladder infection and a kidney infection. W as started on Atropine and Nitrofurantoin. Was also ordered Zofran suppositories , but didn' t fill it because her insurance wouldn't cover the cost. Says she also has a migraine right now but can't keep her pain med down. Says she is very shaky and weak and can hardly make it to her bathroom. [facility] called her this morning to F/U on her and they advised her t o contact her PCP to see what he wanted her to do. Please advise. elephone Encounter - Adriana Cantor - 03/05 8:14 AM PDTPatient called wanting to speak with the nurse. Patient stated she is in bad shape, took an ambulance to the ER yesterday where she received IVs that helped for a wh ile but is still now unable to eat or drink and keep anything down. Patient stated she need s help and would like an urgent call to advise, . documented in this encounter [...] [place] | | | | | | [place] [address] | | | | | | [phone] | | | | | | | | +--------+---------+ + + + | 12/20/ | Office | Otolaryngology | Ulysses Genao MD | | | 2019 | Visit | | [address] | | | | | | [place] | | | | | | [place] [address] | | | | | | [phone] | | | | | | | | +--------+---------+ + + + | 02/15/ | Office | Internal Medicine | Alanis, | | | 2019 | Visit | | MD Petrona | | | | | | [address] [place] | | | | | | [place] [address] | | | | | | [phone] | | | | | | | | +--------+---------+ + + + documented as of this encounter Visit Diagnoses Not on filedocumented in this encounter"
--- OUTSIDE RECORDS SUMMARY | ~2019-12-13 | XMS | Encounter Summary ---
Demographics + + + | Address | [address] | | | [place] [address] | + + + | Home Phone [...] Providers + +------+ + | Care Vp Director Of Finance Name | Role | [...] + | 09/03/ | Telephone | [facility] | Emmy-Kamlesh, | Fall; Hip Pain | | 2018 | | MEDICINE [address] | MD Petrona | | | | | [place], | [address] [place] | | | | | [place] [address] | [place] [address] | | | | | [phone] | [phone] | | | | | | | [...] get a xray. She can be reached [phone]. 10:3 0 AM PDTdocumented in this encounter [...] | | | | | [place] [address] | | | | | | [phone] | | | | | | | | +--------+---------+ + + + | 12/20/ | Office | Otolaryngology | Ulysses Genao MD | | | 2019 | Visit | | [address] | | | | | | [address] | | | | | | [place] [address] | | | | | | [phone] | | | | | | | | +--------+---------+ + + + | 02/15/ | Office | Internal Medicine | Alanis, | | | 2019 | Visit | | MD Petrona | | | | | | [address] [place] | | | | | | [place] [address] | | | | | | [phone] | | | | | | | | +--------+---------+ + + + documented as of this encounter Visit Diagnoses Not on filedocumented in this encounter"
--- OUTSIDE RECORDS SUMMARY | ~2019-12-13 | XMS | Encounter Summary ---
Demographics + + + | Address | [address] | | | [place] [address] [...] Providers + +------+ + | Care Director International Name | Role | Phone | [...] + | 06/30/ | Refill | [facility] | Alanis, | Medication Refill | | 2017 | | MEDICINE [address] | MD Petrona | | | | | [place], | [address] [facility] | | | | | [place] [address] | [place] [address] | | | | | [phone] | [phone] | | | | | | | [...] | | | | | [place] [address] | | | | | | [phone] | | | | | | | | +--------+---------+ + + + | 12/20/ | Office | Otolaryngology | Ulysses Genao MD | | | 2019 | Visit | | [address] | | | | | | [address] [place] | | | | | | [place] [address] | | | | | | [phone] | | | | | | | | +--------+---------+ + + + | 02/15/ | Office | Internal Medicine | Alanis, | | | 2019 | Visit | | MD Petrona | | | | | | [address] [place] | | | | | | [place] [address] | | | | | | [phone] | | | | | | | | +--------+---------+ + + + documented as of this encounter Visit Diagnoses + + | Diagnosis | + + | Bronchitis - Primary Bronchitis, not specified as acute or chronic | + + documented in this encounter"
--- OUTSIDE RECORDS SUMMARY | ~2019-12-13 | XMS | Encounter Summary ---
Demographics + + + | Address | [address] | | | [place] [address] | + + + | Home Phone [...] Providers + +------+ + | Care Consumer Credit Counselor Name | Role | Phone | [...] | | | | Mailcode: L223A | [place], [place] | | | | | [facility] | [address] | | | | | [address] [place], [place] | [phone] | | | | | [address] | | | | | | [phone] | | | +--------+ + + + [...]
--- OUTSIDE RECORDS SUMMARY | ~2019-12-13 | XMS | Encounter Summary ---
Demographics + + + | Address | [address] | | | [place] [address] | + + + | Home Phone [...] Team Providers + +------+ + | Care Repeat Photocomposing Machine Operator Name | Role | Phone [...]
--- OUTSIDE RECORDS SUMMARY | ~2019-12-13 | XMS | Encounter Summary ---
Demographics + + + | Address | [address] | | | [place] [address] | + + + | Home Phone [...] Providers + +------+ + | Care Instructor Industrial Design Name | Role | Phone | [...] as of this encounter Progress Notes Interface, Vaccinator In - 07/03/2006 2:33 AM PST [id number] GEOVANNI SKELTNO [id number] Clinic Date: 06/24/2006 Clinic: Rheumatology Subjective: Belinda Meehan is a 46-year-old woman here for followup of fibromyalgia. She comes from [place] and is now also working with the [...] I will have a meeting soon with [facility] to start doing my films here, [...] 2 months. Caitlin Rivera M.S., F.N.P. / [id number] / [id number] / [id number] / [id number] cc: [facility] Electronically signed by Caitlin Rivera 07-02-2006 11:27:56 AM documented in this encounter Plan of Treatment Not on filedocumented as of this encounter Visit Diagnoses Not on filedocumented in this encounter"
--- OUTSIDE RECORDS SUMMARY | ~2019-12-13 | XMS | Encounter Summary ---
Demographics + + + | Address | [address] | | | [place] [address] | + + + | Home Phone [...] Team Providers + +------+ + | Care Yeast Washer Name | Role | Phone | [...] + + | 03/01/ | Telephone | [facility] | Alanis, | Other | | 2017 | | MEDICINE [address] | MD Petrona | | | | | [place], | [address] [facility] | | | | | [place] [address] | [place] [address] | | | | | [phone] | [phone] | | | | | | | [...] - 03/01/2018 1:55 PM PDTPatient notified of MD bailey mmyuriy. Appointment scheduled for tomorrow amElectronically signed by [...] can evaluate her tomorrow. elephone Encounter - Mary Kay Kuo Katie - 03/01/2018 9:22 AM PDTPatient called [...] Patient states to call after 10:30 am b ecause she is at an appointment right now. [...] | [facility] [address] | | | | | | [address] | | | | | | [place] [address] | | | | | | [phone] | | | | | | | | +--------+---------+ + + + | 12/20/ | Office | Otolaryngology | Ulysses Genao MD | | | 2019 | Visit | | [address] | | | | | | [address] | | | | | | [place] [address] | | | | | | [phone] | | | | | | | | +--------+---------+ + + + | 02/15/ | Office | Internal Medicine | Alanis, | | | 2019 | Visit | | MD Petrona | | | | | | [address] [place] | | | | | | [place] [address] | | | | | | [phone] | | | | | | | | +--------+---------+ + + + documented as of this encounter Visit Diagnoses Not on filedocumented in this encounter"
--- OUTSIDE RECORDS SUMMARY | ~2019-12-13 | XMS | Encounter Summary ---
Demographics + + + | Address | [address] | | | [place] [address] | + + + | Home Phone [...] Providers + +------+ + | Care Photographic Process Attendant Name | Role | Phone | [...] | | | | | site | [place], [place] | [place] | | | | | Cervicalgia | [address] | [address] | | | | | Pain in [...] | | 2006 | Visit | [facility] | [address] 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 Provider: DELFINA MOLINA ANP elfina Molina - 007 6:13 PM PST.pt rlands Nathalia willson - 07/15/2006 4:28 PM PSTFormatting of this note might be different from the origin al. Physical Therapy Medicare Progress Note Date: 07/15/2006 Belinda Meehan [id number]. 1960 Start of Care: 06/23/2006 Referring Provider: [...] + + +--------+ + + | [place] MANUAL THER | Procedures | Routin | [...] + + +--------+ + + | [place] THERAPEUTIC | Procedures | Routin | Cervical [...]
--- OUTSIDE RECORDS SUMMARY | ~2019-12-13 | XMS | Encounter Summary ---
Demographics + + + | Address | [address] | | | [place] [address] | + + + | Home Phone [...] Providers + +------+ + | Care Safety Trainer Name | Role | Phone | [...] (Primary Dx); Spinal | | | | [facility] | | Fusion Lumbar spine | | | | [address] | | ; Hx Arthroplasty | | | | Mailcode: CH15P | | of both Knees; | | | | [facility] | | Fibromyalgia | | | | and Healing, | | syndrome 729.1; | | | | | | Abdominal Pain, | | | | Floor [place], [place] | | dumping syndrome Hx | | | | [address] | | of gastric bypass; | | | | [phone] | | Dumping Syndrome; | | | [...] on 05/15/2008 Dr. Betty Thomas MD [facility], after having problems with nu mbness, [...] a migraine sp ecialist this week in [place], Dr Lucio Nichols. Next area of chronic [...] 3. Mental Health care: Dr Ogden psychology [facility] last visit today . She [...] 300 mg) by oral route once daily jniahpfjse-dgvqbzcuxvtye-ljjrugty (FIORICET) 50-325-40 mg Oral Tablet take 2 [...] 278 01/18 Paniculectomy Hx lumbar fusion 05/2008 L1-T5rqalxi with bone spur removals Family History Problem [...] psychologist when ever sh e comes to [place] for medical care. She has a strong [...] with any concerns or questions. DELFINA MOLINA [facility] Mail code CH 4P [facility] [address] [facility] [address] Ty Mendez - 12/2008 9:11 AM PSTCMA History: PMH/PSH/SH/FH review Patient had lumbar fusion in May 22. She also reports tooth abcess. She has script for an tibiotic tx waiting for her in [place]. 1. Has your pain changed from your [...]
--- OUTSIDE RECORDS SUMMARY | ~2019-12-13 | XMS | Encounter Summary ---
Demographics + + + | Address | [address] | | | [place] [address] | + + + | Home Phone [...] Team Providers + +------+ + | Care Christmas Bell Ringer Name | Role | Phone | [...] [address] | | | | | | [place], [place] | | | | | | [address] | | | | | | [phone] | | | +--------+ + + + [...]
--- OUTSIDE RECORDS SUMMARY | ~2019-12-13 | XMS | Encounter Summary ---
[...] Providers + +------+ + | Care Biological Sciences Instructor Name | Role | Phone | [...] | | | | | Procedures | [facility] | Mailcode: | | | | | CONSULT TO | Rd | [facility] | | | | | NEUROLOGY | [place], [place] | for Health | | | | | | [address] | and Healing, | | | | | | Phone: | [address], | | | | | | [phone] | 8th Floor | | | | | | | [place], [place] | | | | | | | [address] | | | | | | | Phone: | | | | | | | [phone] | | | | | | | Fax: | | | | | | | [phone] | +--------+--------+ + + + + Encounter Details +--------+---------+ + + + | Date | Type | Department | Care Team | Description | +--------+---------+ + + + | 03/24/ | Office | Neurology at | Taniya Guerrero, | Migraine Headache | | 2007 | Visit | [facility] & | | (Primary Dx) | | | | Healing [address] | | | | | | Bethanie Mailcode: CH8C | | | | | | [facility] | | | | | | and Healing, | | | | | | Building | | | | | | Floor [place], [place] | | | | | | [address] | | | | | | [phone] | | | +--------+---------+ + + + [...] low blood pressure. 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 Social History Main Topics [...] touch symmetrically throughout. Cerebellar testing shows normal qrwyze-qh-bpeq and finger tapping. On gait testing, she [...] the names of 3 headache specialists in [place]- Dr. Koby García, Dr. Dakota Sweet and [...]
--- OUTSIDE RECORDS SUMMARY | ~2019-12-13 | XMS | Encounter Summary ---
Demographics + + + | Address | [address] | | | [place] [address] [...] Providers + +------+ + | Care Locomotive Engineer Diesel Name | Role | Phone | + +------+ + PCP | Unavailable | + +------+ + Encounter Details +--------+ + + + + | Date | Type | Department | Care Team | Description | +--------+ + + + + | 08/09/ | Results | | Other, Faculty | | | 2002 | Only | | [phone] | | +--------+ + + + + [...] + | Ordered by [facility] | [facility] | | | DEPARTMENT OF | | | PATHOLOGY | + + + + + + + + | Performing | Address | City/State/Zipcode | Phone Number | | Organization | | | | + + + + + | [facility] | [facility] | [place] [address] | | | PATHOLOGY | [address] | | | + + + + + | [facility] | [facility] | [place] [address] | | | PATHOLOGY | [address] | | | + + + + + documented in this encounter Visit Diagnoses Not on filedocumented in this encounter"
--- OUTSIDE RECORDS SUMMARY | ~2019-12-13 | XMS | Encounter Summary ---
Demographics + + + | Address | [address] | | | [place] [address] | + + + | Home Phone [...] Providers + +------+ + | Care Loom Technician Name | Role | Phone | [...] [address] | | | | | [place], [place] | [place], [place] | | | | | [address] | [address] | | | | | [phone] | [phone] | | | | | | | [...]
--- OUTSIDE RECORDS SUMMARY | ~2019-12-13 | XMS | Encounter Summary ---
Demographics + + + | Address | [address] | | | [place] [address] | + + + | Home Phone [...] Team Providers + +------+ + | Care Sericulture Teacher Name | Role | Phone | [...] + | 03/14/ | Office | [facility] | RileyDelfina joaquin, | Spondylosis with | | 2006 | Visit | Pain Center at | ANP | Myelopathy, Lumbar | | | | [facility] | | Region; Herniated | | [...] of Left | | | | Floor [place], [place] | | Knee; Right shoulder | | | | [address] | | rotator cuff | | | | [phone] | | strain; Major | | | [...] previous 6 days. 2. May continue with Elkridge NTE 4 per day as prescribed 3. [...] Meehan is a 46 y.o. female [facility] Return Visit Chief Complaint: Chief Complaint Patient presents with Pain History of Present Illness: Belinda Meehan is a 46 y.o. year-old female with a history of chronic pain due to degenerative spine disease, abdominal pain, fibromyalgia and right rot ator cuff injury. Belinda reports pain in her left knee and having seen Dr. Morales in orth opedics at [facility], she reports that surgery is not an [...] swelling has resolved. Belinda has been using Elkridge 10/325 an average of 5 tablets per day. 1 tablet has an effecti ve duration of 5 hours "pain breaks through at about 4 hours", she reports taking a Elkridge ev eduardo 5 hours. She denies any [...] Time Resulting Agency 07/30/2006 4:00 PM [facility] [...] previous 6 days. 2. May continue with Elkridge NTE 4 per day as prescribed 3. Continue with PT and Psychology as scheduled. 4. Continue with Trileptal 150mg 1 1/2 tablet twice a day 5. Follow up to review medications on 09/09/06 and call with any concerns or questions. DELFINA MOLINA [facility] Center Mail code CH 4P [facility] and [address] [address] Ailyn Foster - 08/27/19 9:09 [...] documented [facility] Plan of Treatment Not on filedocumented [...]
--- OUTSIDE RECORDS SUMMARY | ~2019-12-13 | XMS | Encounter Summary ---
Demographics + + + | Address | [address] | | | [place] [address] | + + + | Home Phone [...] Providers + +------+ + | Care Physical Sciences Instructor Name | Role | Phone [...] | | | | Clinical Nutrition | [place], [place] | | | | | [address] | [address] | | | | | Loop Mailcode: OPC5 | [phone] | | | | | Outpatient Clinic | | | | | | [facility] | | | | | | [place] [address] | | | | | | [phone] | | | +--------+ + + + [...] + + + + | [facility] | [address] | [place] [address] | | | PATHOLOGY | [address] | | | + + + + + | [facility] | [facility] | [place] [address] | | | PATHOLOGY | [address] | | | + + + + + documented in this encounter Visit Diagnoses Not on filedocumented in this encounter"
--- OUTSIDE RECORDS SUMMARY | ~2019-12-13 | XMS | Encounter Summary ---
Demographics + + + | Address | [address] | | | [place] [address] | + + + | Home Phone [...] Providers + +------+ + | Care Assistant County Attorney Name | Role | Phone | [...] + + | 03/31/ | Office | [facility] | Petra Delfina, | Encounter for | | 2006 | Visit | Pain Center at | ANP | [facility] | | | | [facility] | | Use of Opioids; Left | | | | [address] | | Knee Pain; | | | | Mailcode: CH15P | | Arthroplasty of the | | | | [facility] | | Left Knee; DJD | | | | and Healing, | | (Degenerative Joint | | | | | | Disease) of Knee; | | | | Floor [place], [place] | | Fibromyalgia | | | | [address] | | syndrome 729.1; | | | | [phone] | | Adjustment Disorder | | | [...] Belinda Meehan is a 47 y.o. female [facility] Pain [...] value in her continuing here at the [facility] until her bilateral knee surgical [...] [facility] Mail code CH 4P [facility] and [address] [address] Tasha Can - 03/31/2007 9:15 [...]
--- OUTSIDE RECORDS SUMMARY | ~2019-12-13 | XMS | Encounter Summary ---
Demographics + + + | Address | [address] | | | [place] [address] | + + + | Home Phone [...] Providers + +------+ + | Care Tactical Debriefer Officer Name | Role | Phone | [...] Acute pain | Emmy-Tajt | [address] | | | | | of right | i, | [place], | | | | | shoulder | [place] | [place] | | | | | Procedures | , MD [address] | [address] | | | | | MRI Shoulder | [address] | Phone: | | | | | Right wo | [place], | [phone] | | | | | Contrast | [place] | Fax: | | | | | | [address] | [phone] | | | | | | Phone: | | | | | | | [phone] | | | | | | | Fax: | | | | | | | [phone] | | +--------+--------+ + + + + [...] Acute pain | Emmy-Tajt | [address] | | | | | of right | i, | [place], | | | | | shoulder | [place] | [place] | | | | | Procedures | , [address] | [address] | | | | | MRI Shoulder | [address] | Phone: | | | | | Right wo | [place], | [phone] | | | | | Contrast | [place] | Fax: | | | | | | [address] | [phone] | | | | | | Phone: | | | | | | | [phone] | | | | | | | Fax: | | | | | | | [phone] | | +--------+--------+ + + + + Encounter Details +--------+ + + + + | Date | Type | Department | Care Team | Description | +--------+ + + + + | 02/17/ | Hospital | [facility] | Emmy-Kamlesh, | Acute pain of right | | 2018 | Encounter | MED CTR MRI [address] | MD [place] | shoulder | | | | [address] [place], | [address] [place] | | | | | [place] [address] | [place] [address] | | | | | [phone] | [phone] | | | | | | | [...] | | | | | [place] [address] | | | | | | [phone] | | | | | | | | +--------+---------+ + + + | 12/20/ | Office | Otolaryngology | Ulysses Genao MD | | | 2019 | Visit | | [address] | | | | | | [address] [place] | | | | | | [place] [address] | | | | | | [phone] | | | | | | | | +--------+---------+ + + + | 02/15/ | Office | Internal Medicine | Alanis, | | | 2019 | Visit | | MD [place] | | | | | | [address] [place] | | | | | | [place] [address] | | | | | | [phone] | | | | | | | [...] + + | Performing | Address | City/State/Rustcode | Phone Number | | Organization | | | | + +---------+ + + | [facility] | | | | + +---------+ + + documented in this encounter Visit Diagnoses + + | Diagnosis | + + | Acute pain of right shoulder | + + documented in this encounter"
--- OUTSIDE RECORDS SUMMARY | ~2019-12-13 | XMS | Encounter Summary ---
Demographics + + + | Address | [address] | | | [place] [address] | + + + | Home Phone [...] Team Providers + +------+ + | Care Thermocouple Tester Name | Role | Phone | [...]
--- OUTSIDE RECORDS SUMMARY | ~2019-12-13 | XMS | Encounter Summary ---
Demographics + + + | Address | [address] | | | [place] [address] | + + + | Home Phone [...] Providers + +------+ + | Care Health Director Name | Role | Phone | + +------+ + | [place] Thapa | PCP | | | MD | | | + +------+ + Encounter Details +--------+ + + + + | Date | Type | Department | Care Team | Description | +--------+ + + + + | 05/10/ | Orders Only | [facility] INTERNAL | Alanis, | Chronic bilateral | | 2017 | | MEDICINE [address] | MD [place] | low back pain with | | | | [address] [place], | [address] [place] | left-sided sciatica | | | | [place] [address] | [place] [address] | (Primary Dx) | | | | [phone] | [phone] | | | | | | | [...] | | | | | [place] [address] | | | | | | [phone] | | | | | | | | +--------+---------+ + + + | 12/20/ | Office | Otolaryngology | Ulysses Genao MD | | | 2019 | Visit | | [address] | | | | | | [address] [place] | | | | | | [place] [address] | | | | | | [phone] | | | | | | | | +--------+---------+ + + + | 02/15/ | Office | Internal Medicine | Alanis, | | | 2019 | Visit | | MD [place] | | | | | | [address] [place] | | | | | | [place] [address] | | | | | | [phone] | | | | | | | [...]
--- OUTSIDE RECORDS SUMMARY | ~2019-12-13 | XMS | Encounter Summary ---
Demographics + + + | Address | [address] | | | [place] [address] [...] Providers + +------+ + | Care Coating Operator Name | Role | Phone | [...] + + | 11/16/ | Telephone | [facility] INTERNAL | Alanis, | Lab Results | | 2018 | | MEDICINE [address] | MD [place] | | | | | [place], | [address] [facility] | | | | | [place] [address] | [place] [address] | | | | | [phone] | [phone] | | | | | | | [...] of lab a ll lab results elephon e Encounter - Bob Melgar - 11/18/2018 11:46 AM PDTPatient called states she moul d like a rerun phobe call. Please call [phone] regarding her labs that were done 11/16/[address] - Maggie Montoya LPN - 11/16/2018 8:59 AM PDTPatient notified of lab results with co mments/recommendations. Also increase in dosage of Imitrex. elephone Encounter - Maggie Montoya LPN - 11/16/2018 8 [...] | | | | | [place] [address] | | | | | | [phone] | | | | | | | | +--------+---------+ + + + | 12/20/ | Office | Otolaryngology | Ulysses Genao MD | | 2019 | Visit | | [address] | | | | | | [address] [place] | | | | | | [place] [address] | | | | | | [phone] | | | | | | | | +--------+---------+ + + + | 02/15/ | Office | Internal Medicine | Alanis, | | | 2019 | Visit | | MD [place] | | | | | | [address] [place] | | | | | | [place] [address] | | | | | | [phone] | | | | | | | | +--------+---------+ + + + documented as of this encounter Visit Diagnoses Not on filedocumented in this encounter"
--- OUTSIDE RECORDS SUMMARY | ~2019-12-13 | XMS | Encounter Summary ---
Demographics + + + | Address | [address] | | | [place] [address] | + + + | Home Phone [...] Providers + +------+ + | Care Psych Np Name | Role | Phone | + [...] + + | 11/03/ | Telephone | [facility] | Alanis, | Headache | | 2018 | | MEDICINE [address] | MD [place] | | | | | [place], | [address] [facility] | | | | | [place] [address] | [place] [address] | | | | | [phone] | [phone] | | | | | | | [...] seek medical treatment at the ED in [place] for any worsening symptoms. Patient understands and [...] | | | | | | [place] [address] | | | | | | [phone] | | | | | | | | +--------+---------+ + + + | 12/20/ | Office | Otolaryngology | Ulysses Genao MD | | | 2019 | Visit | | [address] | | | | | | [address] [place] | | | | | | [place] [address] | | | | | | [phone] | | | | | | | | +--------+---------+ + + + | 02/15/ | Office | Internal Medicine | Alanis, | | | 2019 | Visit | | MD [place] | | | | | | [address] [place] | | | | | | [place] [address] | | | | | | [phone] | | | | | | | | +--------+---------+ + + + documented as of this encounter Visit Diagnoses Not on filedocumented in this encounter"
--- OUTSIDE RECORDS SUMMARY | ~2019-12-13 | XMS | Encounter Summary ---
Demographics + + + | Address | [address] | | | [place] [address] | + + + | Home Phone [...] Providers + +------+ + | Care Program Director Group Work Name | Role | Phone | + [...] + + | 07/30/ | Office | [facility] Comprehensive | Delfina Molina, | Cervical Spondylosis | | 2006 | Visit | Pain Center at | ANP | without Myelopathy | | | [facility] | | (Primary Dx); Right | | | | [address] | | shoulder rotator | | | | Mailcode: CH15P | | cuff strain; | | | | [place] for [facility] | | Spondylosis with | | | | and Healing, | | Myelopathy, Lumbar | | | | Building | | Region; Herniated | | | | Floor [place], [place] | | Lumbar | | | | [address] | | Intervertebral Disc | | | | [phone] | | L4-5; Migraine | | | [...] Belinda Meehan is a 46 y.o. 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 Since prior visit she had a 06/24/06: Bone density study and her T-Score -1.2 lumbar spine a nd -2.2 proximal femur. Collection Information Collection Date Collection Time Resulting Agency 03/10/2006 2:42 PM [facility] DEPARTMENT OF PATHOLOGY Component Results Component Value Range Status CALCIUM (LAB) 9.5 8.5 - 10.5 mg/dL Fin SPINE LUMBAR 2 VIEWS AT 1421 HOURS LUMBAR SPINE, 10/01/05 HISTORY: Back pain. FINDINGS: AP and lateral views of the lumbar spine show five wxw-run-qsqtgaf lumbar vertebrae in normal alignment with no [...] spent in reviewing of chart, imaging and career development counselor ing/coordindation of care. 1. For the [...] appropriate care and safety for your patient, [facility] Center r equires a primary [...] Please indicate and fax your response to [phone]. I called and left a message on [facility] general voice mail requesting he call me to discuss prescribing and patient care. DELFINA MOLINA [facility] Pain Center Mail code CH 4P [facility] and [address] [address] aurav Tasha - 07/30/2006 7:35 [...] | | + +---------+ + + | [facility] DEPARTMENT OF | | | [...]
--- OUTSIDE RECORDS SUMMARY | ~2019-12-13 | XMS | Encounter Summary ---
Demographics + + + | Address | [address] | | | [place] [address] [...] Providers + +------+ + | Care Computer Typesetter Name | Role | Phone | + [...] [address] | | | | | | [place], [place] | | | | | | [address] | | | | | | [phone] | | | +--------+ + + + [...] | | | | | [place] [address] | | | | | | [phone] | | | | | | | | +--------+---------+ + + + | 12/20/ | Office | Otolaryngology | Ulysses Genao MD | | | 2020 | Visit | | [address] | | | | | | [address] [place] | | | | | | [place] [address] | | | | | | [phone] | | | | | | | | +--------+---------+ + + + | 02/15/ | Office | Internal Medicine | Alanis, | | | 2019 | Visit | | MD [place] | | | | | | [address] [place] | | | | | | [place] [address] | | | | | | [phone] | | | | | | | | +--------+---------+ + + + documented as of this encounter Visit Diagnoses Not on filedocumented in this encounter"
--- OUTSIDE RECORDS SUMMARY | ~2019-12-13 | XMS | Encounter Summary ---
Demographics + + + | Address | [address] | | | [place] [address] | + + + | Home Phone [...] Team Providers + +------+ + | Care Fabrication Specialist Name | Role | Phone | [...] | | | Yogierg, | [address] | | | | | Sacroiliitis | Carlos Armijo MD | [place], | | | | | , not | [address] | [place] | | | | | elsewhere | [facility] | [address] | | | | | classified | [place] | Phone: | | | | | ([facility]) | [address] | [phone] | | | | | Procedures | Phone: | Fax: | | | | | NM INJECT SI | [phone] | [phone] | | | | | JOINT | Fax: | | | | | | ARTHRGRPHY&/ | [phone] | | | | | | ANES/STEROID | | | | | | | W/IMAGE NM | | | | | | | [...] + + | 02/27/ | Hospital | [facility] | Joe, | Bilateral | | 2015 | Encounter | MED CTR XRAY [address] | MARY Montero [address] | sacroiliitis (HCC) | | | | [place] | [facility] | (Primary Dx); | | | | [place] [address] | [place] [address] | Chronic low back | | | | [phone] | [phone] | pain; SCOLIOSIS , | | | | | | IDIOPATHIC; S/P | | | | | Space Studies Faculty Member, [facility]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; | | | [...] | Visit | | [facility] [address] | | | | | | ST [place] | | | | | | [place] [address] | | | | | | [phone] | | | | | | | | +--------+---------+ + + + | 12/20/ | Office | Otolaryngology | Ulysses Genao MD | | | 2019 | Visit | | [address] | | | | | | [address] [place] | | | | | | [place] [address] | | | | | | [phone] | | | | | | | | +--------+---------+ + + + | 02/15/ | Office | Internal Medicine | Alanis, | | | 2019 | Visit | | MD [place] | | | | | | [address] [place] | | | | | | [place] [address] | | | | | | [phone] | | | | | | | [...] 720.0 Belinda Meehan presents to the | [facility] | | fluoroscopy suite for fluoroscopically guided bilateral sacroiliac [facility] | | joint steroid injections [...] + + + + + | [facility] | [address] | [place] | [phone] | | [facility] | | [address] | | | - IMAGING | | [...] 720.0 Belinda Meehan presents to the | [facility] | | fluoroscopy suite for fluoroscopically guided bilateral sacroiliac | [facility] | | joint steroid injections as part [...] | [address] | [address] | [place] | [phone] | | [facility] | | [address] | | | - IMAGING | | [...] | | | | | | dose, Shalilliana well. Not for IV | | | | | | | use., Radiology | | | | | | + +-------+ +-------+---+---+ +---+---+ | | | +---+---+ documented in this encounter"
--- OUTSIDE RECORDS SUMMARY | ~2019-12-13 | XMS | Encounter Summary ---
Demographics + + + | Address | [address] | | | [place] [address] | + + + | Home Phone [...] Providers + +------+ + | Care Manager Cash Name | Role | Phone | + [...] PHYSIATRY [address] | MD [address] | | | | | [address] | [place] | | | | | [place] | [address] | | | | | [address] | | | | | | [phone] | | | +--------+ + + + [...] | | | | | [place] [address] | | | | | | [phone] | | | | | | | | +--------+---------+ + + + | 12/20/ | Office | Otolaryngology | Ulysses Genao MD | | | 2019 | Visit | | [address] | | | | | | [address] [place] | | | | | | [place] [address] | | | | | | [phone] | | | | | | | | +--------+---------+ + + + | 02/15/ | Office | Internal Medicine | Alanis, | | | 2019 | Visit | | MD [place] | | | | | | [address] | | | | | | [place] [address] | | | | | | [phone] | | | | | | | | +--------+---------+ + + + documented as of this encounter Visit Diagnoses Not on filedocumented in this encounter"
--- OUTSIDE RECORDS SUMMARY | ~2019-12-13 | XMS | Encounter Summary ---
Demographics + + + | Address | [address] | | | [place] [address] | + + + | Home Phone [...] Providers + +------+ + | Care Supervisor Briar Shop Name | Role | Phone | [...] | Visit | [facility] [address] | PATIENT RELATIONS DIRECTOR | syndrome [address] | | | | [address] | | (Primary Dx); | | | | Physician's | | Fibromyalgia | | | | Pavilion, 4th Floor | | | | | | [place], [place] | | | | | | [address] | | | | | | [phone] | | | +--------+---------+ + + + [...]
--- OUTSIDE RECORDS SUMMARY | ~2019-12-13 | XMS | Encounter Summary ---
Demographics + + + | Address | [address] | | | [place] [address] | + + + | Home Phone [...] Providers + +------+ + | Care Sports Instructor Name | Role | Phone | + +------+ + | Pedrito Gutierrez MD | PCP | | + +------+ + Encounter Details +--------+---------+ + + + | Date | Type | Department | Care Team | Description | +--------+---------+ + + + | 11/24/ | Office | Preoperative | 2, [facility] Test Development Engineer [address] | Other Specified | | 2007 | Visit | Medicine Clinic at | [address] | Pre-Operative | | | | [facility] 4th Floor [address] | [place] [address] | Examination; | | | | [address] | | Hemorrhagic Disorder | | | | Mailcode: CH4S | | due to Intrinsic | | | | [facility] | | Circulating | | | | and Healing, | | Anticoagulants | | | | Building 1,4th [facility] | | | | | | [place], [place] | | | | | | [address] | | | | | | [phone] | | | +--------+---------+ + + + [...] DEPARTMENT OF | [address] | [place] [address] | | | PATHOLOGY | [address] | | | + + + + + | [facility] DEPARTMENT OF | [address] | [place] [address] | | | PATHOLOGY | [address] [...] [facility] DEPARTMENT OF | [address] [facility] | [place] [address] | | | PATHOLOGY | [address] | | | + + + + + | [facility] DEPARTMENT OF | [address] [facility] | [place] [address] | | | PATHOLOGY | [address] [...] DEPARTMENT OF | [address] | [place] [address] | | | PATHOLOGY | [address] | | | + + + + + | [facility] DEPARTMENT OF | [address] | [place] [address] | | | PATHOLOGY | [address] [...] Performed At | + + + | [id number] Estimated GFR > 60 mL/min/1.73 sq m if non- | [facility] | | Citizen [place] [id number] Estimated GFR > 60 mL/min/1.73 sq m if | DEPARTMENT OF | | Citizen [place] GFR is estimated using the MDRD equation [...] + + | [facility] | [address] [facility] | [place] [address] | | | PATHOLOGY | [address] | | | + + + + + | [facility] | [address] [place] [address] | [place] [address] | | | PATHOLOGY | [address] [...] detailed | CARDIOLOGY | | interpretation from [employer] results. | | |results. | | | | | + + + + + + + + | Performing | Address | City/State/Zipcode | Phone Number | | Organization | | | | + + + + + | [facility] DEPT OF | [address] | [place], [place] | | | CARDIOLOGY | [address] | [address] | | + + + + + | [facility] DEPT OF | [address] | [place], [place] | | | CARDIOLOGY | [address] | [address] | | + + + + + documented in this encounter Visit Diagnoses + + | Diagnosis | + + | Other specified pre-operative examination | + + | Hemorrhagic disorder due to intrinsic circulating anticoagulants | + + documented in this encounter
--- OUTSIDE RECORDS SUMMARY | ~2019-12-13 | XMS | Encounter Summary ---
Demographics + + + | Address | [address] | | | [place] [address] | + + + | Home Phone [...] Providers + +------+ + | Care Timber Appraiser Name | Role | Phone | [...] Pavilion | | | | | | [place], [place] | | | | | | [address] | | | | | | [phone] | | | +--------+ + + + [...]
--- OUTSIDE RECORDS SUMMARY | ~2019-12-13 | XMS | Encounter Summary ---
Demographics + + + | Address | [address] | | | [place] [address] | + + + | Home Phone [...] Padgett, | | | 2008 | | [place] [address] | [address] [facility] | | | | | Bethanie Mailcode: CH4S | [address] | | | | | Center [facility] | [place], [place] | | | | | and Healing, | [address] | | | | | Building , 6th | [phone] | | | | | Floor [place], [place] | | | | | | [address] | | | | | | [phone] | | | +--------+ + + + [...]
--- OUTSIDE RECORDS SUMMARY | ~2019-12-13 | XMS | Encounter Summary ---
Demographics + + + | Address | [address] | | | [place] [address] | + + + | Home Phone [...] Team Providers + +------+ + | Care Spar Finisher Name | Role | Phone | [...] Rd | | | | | | [place], [place] | | | | | | [address] | | | +--------+ + + + [...] as of this encounter Progress Notes Interface, Credit Risk Associate In - 12/06/2006 2:32 AM PDT [id number] GEOVANNI Barnes [id number] Clinic Date: 10/29/2006 Clinic: Endocrinology Subjective: Belinda [...] been working with the Pain Clinic at [facility] to optimize her pain management. Fortunately, [...] patch 25 mcg for 72 hours. 2. [place]/acetaminophen 10 mg/325 mg, 1 every 6 hours [...] months. Beto Meeks M.D. PD / HS [id number] / [id number] / [id number] / [id number] cc: Pedrito Gutierrez M.D. [address] [address] Chris [place] M.D. Electronically signed by Beto Meeks 12-05-2006 05:17:05 AM documented in this encounter Plan of Treatment Not on filedocumented as of this encounter Visit Diagnoses Not on filedocumented in this encounter"
--- OUTSIDE RECORDS SUMMARY | ~2019-12-13 | XMS | Encounter Summary ---
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 Diagnosis: Beason I: 1. (296.32) Major depressive disorder, recurrent, moderate. 2. (309.24) Adjustment disorder with anxiety. 3. 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 Beason II: Deferred Beason III: abdominal pain, migraine headache, low back pain. Beason IV: low finances Beason V: GAF 55-60 Plan: Return with next medical follow-up appointment. Check mood, knee surgery, relaxation, acti vity, distraction. Continue cognitive/behavioral therapy. Total time spent with patient was approximately 45 minutes. LUKASZ CHARLES [facility] [address] [facility], 4th [place] [address] documented in this encount er Plan of [...]
--- OUTSIDE RECORDS SUMMARY | ~2019-12-13 | XMS | Encounter Summary ---
Demographics + + + | Address | [address] | | | [place] [address] | + + + | Home Phone [...] Providers + +------+ + | Care Bass Fisher Name | Role | Phone | + [...] | | | | Clinical Nutrition | [place], [place] | | | | | [address] | [address] | | | | | Loop Mailcode: OPC5 | [phone] | | | | | Outpatient Clinic | | | | | | [facility] | | | | | | [place] [address] | | | | | | [phone] | | | +--------+ + + + [...] | | | | | performed by [facility] | | | | | [...] | [facility] | | [address] | | + + + + + HEMOGLOBIN A1C (05/31/2002 3:21 PM PST) + + + + + + | Component | Value | Ref Range | Performed | Pathologist | | | | | At | Signature | + + + + + + | HEMOGLOBIN | 6.0Comment: Test | <7.1 % | | | | A1C | performed by [place] | | | | | | [facility] | | | | | [...] | + + + + + | [facility] | [address] | [place] [address] | | | LABORATORY | | | [...] + + + + | [facility] DEPARTMENT OF | [address] | [place] [address] | | | PATHOLOGY | [address] | | | + + + + + | [facility] DEPARTMENT OF | [address] | [place] [address] | | | PATHOLOGY | [address] [...] [facility] | [address] | [place] [address] | | | PATHOLOGY | [address] | | | + + + + + | [facility] | [address] [facility] | [place] [address] | | | PATHOLOGY | [address] | | | + + + + + documented in this encounter Visit Diagnoses Not on filedocumented in this encounter"
--- OUTSIDE RECORDS SUMMARY | ~2019-12-13 | XMS | Encounter Summary ---
Demographics + + + | Address | [address] | | | [place] [address] | + + + | Home Phone [...] Providers + +------+ + | Care Movie Actor Name | Role | Phone | + [...] | | Center at [facility] [address] | [address] | | | | | [place] | , [address] | | | | | Mailcode: Center | [place], [place] | | | | | [facility] and | [address] | | | | | Healing, Building [address] | [phone] | | | | | [place], [place] | | | | | | [address] | | | | | | [phone] | | | +--------+ + + + [...]
--- OUTSIDE RECORDS SUMMARY | ~2019-12-13 | XMS | Encounter Summary ---
Demographics + + + | Address | [address] | | | [place] [address] | + + + | Home Phone [...] Providers + +------+ + | Care Photo Checker And Assembler Name | Role | Phone | [...] [address] | | | | | [place], [place] | [place], [place] | | | | | [address] | [address] | | | | | [phone] | [phone] | | | | | | | [...]
--- OUTSIDE RECORDS SUMMARY | ~2019-12-13 | XMS | Encounter Summary ---
Demographics + + + | Address | [address] | | | [place] [address] [...] Providers + +------+ + | Care Senior Service Technician Name | Role | Phone | + +------+ + PCP | Unavailable | + +------+ + Encounter Details +--------+ + + + + | Date | Type | Department | Care Team | Description | +--------+ + + + + | 08/09/ | Results | | Other, Faculty | | | 2002 | Only | | [phone] | | +--------+ + + + + [...] + | Ordered by [facility] | [facility] | | | DEPARTMENT OF | | | PATHOLOGY | + + + + + + + + | Performing | Address | City/State/Zipcode | Phone Number | | Organization | | | | + + + + + | [facility] | [facility] | [place] [address] | | | PATHOLOGY | [address] | | | + + + + + | [facility] | [facility] [address] | [place] [address] | | | PATHOLOGY | [address] | | | + + + + + documented in this encounter Visit Diagnoses Not on filedocumented in this encounter"
--- OUTSIDE RECORDS SUMMARY | ~2019-12-13 | XMS | Encounter Summary ---
Demographics + + + | Address | [address] | | | [place] [address] | + + + | Home Phone [...] Team Providers + +------+ + | Care Marshmallow Machine Operator Name | Role | Phone [...] + + | 09/25/ | Telephone | [facility] | Alanis, | Other | | 2017 | | MEDICINE [address] | MD Petron[place] | | | | | [place], | [address] [facility] | | | | | [place] [address] | [place] [address] | | | | | [phone] | [phone] | | | | | | | [...] 10/02/2017 1:30 PM PDTPrinted rx mailed [facility] notified INTe luciana Encounter - Malissa Redd - 09/25/2017 9:21 AM PDTPatient called and would like to know if she can get her CPAP supplies sent to [facility] in [facility]? Currently she is getting them through mail order and they have not been sending her t he correct order and she believes this is why she is not getting any sleep and the cause for her headaches. Please advise. [phone] signed by Malissa Redd at 09/25/2017 9:29 [...] | | | | | [place] [address] | | | | | | [phone] | | | | | | | | +--------+---------+ + + + | 12/20/ | Office | Otolaryngology | Ulysses Genao MD | | | 2019 | Visit | | [address] | | | | | | [address] [place] | | | | | | [place] [address] | | | | | | [phone] | | | | | | | | +--------+---------+ + + + | 02/15/ | Office | Internal Medicine | Alanis, | | | 2019 | Visit | | MD Petrona | | | | | | [address] [place] | | | | | | [place] [address] | | | | | | [phone] | | | | | | | | +--------+---------+ + + + documented as of this encounter Visit Diagnoses + + | Diagnosis | + + | OLIVER (obstructive sleep apnea) - Primary Obstructive sleep apnea (adult) (pediatric) | + + documented in this encounter"
--- OUTSIDE RECORDS SUMMARY | ~2019-12-13 | XMS | Encounter Summary ---
Demographics + + + | Address | [address] | | | [place] [address] | + + + | Home Phone [...] + +------+ + | Care Form Builder Name | Role | Phone | [...] + + | 06/17/ | Telephone | [facility] | Alanis, | Referral | | 2018 | | MEDICINE [address] | MD Petrona | | | | | [place], | [address] [facility] | | | | | [place] [address] | [place] [address] | | | | | [phone] | [phone] | | | | | | | [...] it is Dr. Nikita Vallejo at the [facility] elephone Encounter - Maggie Montoya LPN - [...] see about getting a referral to an chain person as she has multiple intolerances to foods [...] | | [facility] [address] | | | | | | [place] | | | | | | [place] [address] | | | | | | [phone] | | | | | | | | +--------+---------+ + + + | 12/20/ | Office | Otolaryngology | Ulysses Genao MD | | | 2019 | Visit | | [address] | | | | | | [place] | | | | | | [place] [address] | | | | | | [phone] | | | | | | | | +--------+---------+ + + + | 02/15/ | Office | Internal Medicine | Alanis, | | | 2019 | Visit | | MD Petrona | | | | | | [address] [place] | | | | | | [place] [address] | | | | | | [phone] | | | | | | | | +--------+---------+ + + + documented as of this encounter Visit Diagnoses Not on filedocumented in this encounter"
--- OUTSIDE RECORDS SUMMARY | ~2019-12-13 | XMS | Encounter Summary ---
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 female [facility] Comprehensive [...] be ing reviewed by Dr Constantino SHEEHAN human resources professional. MRI of the brain and it was normal A Brief Pain Inventory and a pain drawing has be completed, which I reviewed. [facility] Brief Pain Inventory: (ten= worst possible [...] Ogden PhD TPI every 5-6 months with [facility] Rheumatology Hilda Saenz Review [...] history, fam bijan history, or social history. [facility] Encorinology [facility] ACNP ThuNovember 12, 2007 Assessment: 1) Hypothyroidism [...] continue to discuss with her options at [facility] with, hopefully, coordinatio n [...] 300 mg) by oral route once daily rwfdfkevnv-qwypfadwrhdlc-tihljanq (FIORICET) 50-325-40 mg Oral Tablet take 2 [...] DISK BULGE. Transcribed By: Armaan Mata : [id number] : 1442 Approved By: Radiologist: Physical Examination: [...] with any concerns or questions. DELFINA MOLINA [facility] Mail code CH 4P [facility] [address] [place] [address] Ailyn Foster - 03/03/20 08 10:24 [...]
--- OUTSIDE RECORDS SUMMARY | ~2019-12-13 | XMS | Encounter Summary ---
Demographics + + + | Address | [address] | | | [place] [address] | + + + | Home Phone [...] Providers + +------+ + | Care It Account Manager Name | Role | Phone [...] Pavilion | | | | | | [place], [place] | | | | | | [address] | | | | | | [phone] | | | +--------+ + + + [...]
--- OUTSIDE RECORDS SUMMARY | ~2019-12-13 | XMS | Encounter Summary ---
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 Diagnosis: Kistler I: 1. (296.32) Major depressive disorder, recurrent, moderate. 2. (309.24) Adjustment disorder with anxiety. 3. 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 Kistler II: Deferred Kistler III: abdominal pain, migraine headache, low back pain. Kistler IV: low finances Kistler V: GAF 55-60 Plan: Return with next medical follow-up appointment. Check mood, knee surgery, pacing, relaxati on, activity, distraction. Continue cognitive/behavioral therapy. Discuss need for further sessions. Total time spent with patient was approximately 45 minutes. LUKASZ CHARLES PHD [facility] [address] [facility], [address] [place] [address] documented in this encount er Plan of [...]
--- OUTSIDE RECORDS SUMMARY | ~2019-12-13 | XMS | Encounter Summary ---
Demographics + + + | Address | [address] | | | [place] [address] | + + + | Home Phone [...] + +------+ + | Care Real Estate Accountant Name | Role | Phone | [...] [place] | | | | | | [address] | [place], [place] | | | | | | [place], | [address] Phone: | | | | | | [place] | [phone] | | | | | | [address] | Fax: | | | | | | Phone: | [phone] | | | | | | [phone] | | | | | | | Fax: | | | | | | | [phone] | | +--------+ + + + + [...] apnea) | | | | [address] [place], | [address] [facility] | (Primary Dx) | | | | [place] [address] | [place] [address] | | | | | [phone] | [phone] | | | | | | | [...] | | | | | [place] [address] | | | | | | [phone] | | | | | | | | +--------+---------+ + + + | 12/20/ | Office | Otolaryngology | Ulysses Genao MD | | | 2019 | Visit | | [address] | | | | | | [address] [place] | | | | | | [place] [address] | | | | | | [phone] | | | | | | | | +--------+---------+ + + + | 02/15/ | Office | Internal Medicine | Alanis, | | | 2019 | Visit | | MD [place] | | | | | | [address] [place] | | | | | | [place] [address] | | | | | | [phone] | | | | | | | | +--------+---------+ + + + + + +--------+ + + | Name | Type | Priori | Associated Diagnoses | Order Schedule | | | | ty | | | + + +--------+ + + | * [facility] | Outpatient | Routin | OLIVER [...]
--- OUTSIDE RECORDS SUMMARY | ~2019-12-13 | XMS | Encounter Summary ---
Demographics + + + | Address | [address] | | | [place] [address] | + + + | Home Phone [...] Providers + +------+ + | Care Division Traffic Superintendent Name | Role | Phone | [...] as of this encounter Progress Notes Interface, Tank Cleaner In - 07/09/2005 2:07 AM PST [id number] GEOVANNI Barnes Clinic Date: 07/03/2005 Clinic: Ms. [...] this operation. Chris Padgett M.D. ROSA / [id number] / [id number] / [id number] / [id number] Electronically signed by Chris Padgett 07-08-2005 01:45:20 PM documented i n this encounter Plan of Treatment Not on filedocumented as of this encounter Visit Diagnoses Not on filedocumented in this encounter"
--- OUTSIDE RECORDS SUMMARY | ~2019-12-13 | XMS | Encounter Summary ---
Demographics + + + | Address | [address] | | | [place] [address] | + + + | Home Phone [...] Providers + +------+ + | Care Garnett Feeder Name | Role | Phone | [...] as of this encounter Progress Notes Interface, Berry Picker In - 09/13/2005 2:06 AM PST [id number] GEOVANNI SKELTON [facility] Date: 07/03/2005 Clinic: [...] which are pending through the laboratory in [place]. Allergies: PENICILLIN, CODEINE, KEFLEX, SULFA, CIPRO, AND [...] which were done several days ago in [place]. Beto Meeks M.D. PD / HS [id number] / [id number] / [id number] / [id number] cc: Chris Padgett M.D. [facility] Electronically signed by Beto Meeks 09-12-2005 02:23:07 AM documented i n this encounter Plan of Treatment Not on filedocumented as of this encounter Visit Diagnoses Not on filedocumented in this encounter"
--- OUTSIDE RECORDS SUMMARY | ~2019-12-13 | XMS | Encounter Summary ---
Demographics + + + | Address | [address] | | | [place] [address] | + + + | Home Phone [...] Providers + +------+ + | Care Insole Coverer Name | Role | Phone | [...] | | 2017 | | MEDICINE [address] | MD Petrona | | | | | [place], | [address] [facility] | | | | | [place] [address] | [place] [address] | | | | | [phone] | [phone] | | | | | | | [...] patient's voicemail to seek medical attention at [facility] when back in town to have [...] | | | | | | [place] [address] | | | | | | [phone] | | | | | | | | +--------+---------+ + + + | 12/20/ | Office | Otolaryngology | Ulysses Genao MD | | | 2019 | Visit | | [address] | | | | | | [address] [place] | | | | | | [place] [address] | | | | | | [phone] | | | | | | | | +--------+---------+ + + + | 02/15/ | Office | Internal Medicine | Alanis, | | | 2019 | Visit | | MD Petrona | | | | | | [address] [place] | | | | | | [place] [address] | | | | | | [phone] | | | | | | | | +--------+---------+ + + + documented as of this encounter Visit Diagnoses Not on filedocumented in this encounter"
--- OUTSIDE RECORDS SUMMARY | ~2019-12-13 | XMS | Encounter Summary ---
Demographics + + + | Address | [address] | | | [place] [address] | + + + | Home Phone [...] Padgett, | | | 2007 | | [place] [address] | [address] [facility] | | | | | [place] Mailcode: CH4S | [facility] | | | | [facility] | [place], [place] | | | | | and Healing, | [address] | | | | | Building , 6th | [phone] | | | | | Floor [place], [place] | | | | | | [address] | | | | | | [phone] | | | +--------+ + + + [...]
--- OUTSIDE RECORDS SUMMARY | ~2019-12-13 | XMS | Encounter Summary ---
Demographics + + + | Address | [address] | | | [place] [address] | + + + | Home Phone [...] Team Providers + +------+ + | Care Escrow Clerk Name | Role | Phone | [...] Refill Request | | 2007 | | [place] [address] | [address] [facility] | | | | | [place] Mailcode: CH4S | [facility] | | | | | [facility] | [place], [place] | | | | | and [place], | [address] | | | | | [facility] | [phone] | | | | | Floor [place], [place] | | | | | | [address] | | | | | | [phone] | | | +--------+--------+ + + + [...]
--- OUTSIDE RECORDS SUMMARY | ~2019-12-13 | XMS | Encounter Summary ---
Demographics + + + | Address | [address] | | | [place] [address] | + + + | Home Phone [...] Providers + +------+ + | Care Kiln Maintenance Name | Role | Phone | [...] + | 12/26/ | Refill | [facility] | Alanis, | Medication Refill | | 2017 | | MEDICINE [address] | MD Petron[place] | | | | | [place], | [address] [facility] | | | | | [place] [address] | [place] [address] | | | | | [phone] | [phone] | | | | | | | [...] [facility] [address] | | | | | | ST [place] | | | | | | [place] [address] | | | | | | [phone] | | | | | | | | +--------+---------+ + + + | 12/20/ | Office | Otolaryngology | Ulysses Genao MD | | | 2019 | Visit | | [address] | | | | | | [address] [place] | | | | | | [place] [address] | | | | | | [phone] | | | | | | | | +--------+---------+ + + + | 02/15/ | Office | Internal Medicine | Alanis, | | | 2019 | Visit | | MD [place] | | | | | | [address] [place] | | | | | | [place] [address] | | | | | | [phone] | | | | | | | | +--------+---------+ + + + documented as of this encounter Visit Diagnoses Not on filedocumented in this encounter"
--- OUTSIDE RECORDS SUMMARY | ~2019-12-13 | XMS | Encounter Summary ---
Demographics + + + | Address | [address] | | | [place] [address] | + + + | Home Phone [...] Providers + +------+ + | Care President And Chief Executive Officer Name | Role | Phone | [...] [address] | | | | | | [place], [place] | | | | | | [address] | | | | | | [phone] | | | +--------+ + + + [...] + + + + + | [facility] DEPARTMENT OF | [address] | [place] [address] | | | PATHOLOGY | [address] | | | + + + + + | [facility] DEPARTMENT | [address] | [place] [address] | | | PATHOLOGY | [address] | | | + + + + + PROTHROMBIN TIME (03/10/2006 2:42 PM PDT) + + + + + + | Component | Value | Ref Range | Performed | Pathologist | | | | | At | Signature | + + + + + + | INR | 1.01Comment: | 0.90 - 1.20 INR | [facility] | | | | PT INR Therapeutic [...] | + + + + + | [facility] | [address] [place] [address] | [place] [address] | | | PATHOLOGY | [address] | | | + + + + + | [facility] | [address] [facility] | [place] [address] | | | PATHOLOGY | [address] [...] DEPARTMENT OF | [address] | [place] [address] | | | PATHOLOGY | [address] | | | + + + + + | [facility] DEPARTMENT OF | [address] | [place] [address] | | | PATHOLOGY | [address] [...] + + + + + | [facility] DEPARTMENT | [address] [facility] | [place] [address] | | | PATHOLOGY | [address] | | | + + + + + | [facility] | [address] [facility] | [place] [address] | | | PATHOLOGY | [address] [...] + + + | [facility] | [address] | [place] [address] | | | LABORATORY | | | [...] | | | | | performed at [facility] | | | | | | [facility]ermanente [...] + + + | [facility] | [address] | [place] [address] | | | LABORATORY | | | | + + + + + documented in this encounter Visit Diagnoses + + | Diagnosis | + + | Chronic abdominal pain Abdominal pain, unspecified site | + + | Iron deficiency Other disorders of iron metabolism | + + documented in this encounter"
--- OUTSIDE RECORDS SUMMARY | ~2019-12-13 | XMS | Encounter Summary ---
Demographics + + + | Address | [address] | | | [place] [address] | + + + | Home Phone [...] Providers + +------+ + | Care Historical Site Guide Name | Role | Phone | [...] + + | 05/28/ | Office | [facility] Comprehensive | Delfina Molina, | LBP (Low Back Pain); | | 2006 | Visit | Pain Center at | ANP | Bilateral Knee | | | | [facility] | | Pain; Arthroplasty | | [...] Migraine Headache; | | | | Floor [place], [place] | | Herniated Lumbar | | | | [address] | | Intervertebral Disc | | | | [phone] | | L4-5; Fibromyalgia | | | [...] diagnostics and lab results. 6. [facility] knee Post arthroplasty physical rehabiliation. 7. Schedule follow up in one month or sooner if needed - The pateint was asked to call the clinic with any concerns or questions. DELFINA MOLINA [facility] Mail code CH 4P [facility] [address] [place] [phone] asha Nolasco - 05/28/2007 10:01 AM [...] of 103.2 she was seen here at [facility] today the temp is 100.2 3. Do [...]
--- OUTSIDE RECORDS SUMMARY | ~2019-12-13 | XMS | Encounter Summary ---
Demographics + + + | Address | [address] | | | [place] [address] | + + + | Home Phone [...] Team Providers + +------+ + | Care Welfare Officer Name | Role | Phone | [...] unspecified | | | | [address] | [address] | chronicity (Primary | | | | [place] | [place] [address] | Dx) | | | | [address] | [phone] | | | | | [phone] | | | +--------+ + + + [...] | | | | [address] | | | | | | [place] [address] | | | | | | [phone] | | | | | | | | +--------+---------+ + + + | 12/20/ | Office | Otolaryngology | Ulysses Genao MD | | | 2019 | Visit | | [address] | | | | | | [address] [place] | | | | | | [place] [address] | | | | | | [phone] | | | | | | | | +--------+---------+ + + + | 02/15/ | Office | Internal Medicine | Alanis, | | | 2019 | Visit | | MD [place] | | | | | | [address] [place] | | | | | | [place] [address] | | | | | | [phone] | | | | | | | [...]
--- OUTSIDE RECORDS SUMMARY | ~2019-12-13 | XMS | Encounter Summary ---
Demographics + + + | Address | [address] | | | [place] [address] | + + + | Home Phone [...] Team Providers + +------+ + | Care Convalescent Sitter Name | Role | Phone | [...] as of this encounter Progress Notes Interface, Herb Counselor In - 12/09/2005 2:08 AM PDT [id number] GEOVANNI Barnes [id number] Clinic Date: 11/26/2005 Clinic: General Surgery Clinic [...] with extensive workup. Prescription picked up at [facility] on November 25, 2005, for 50 oxycodone 5 mg. Melisa Thorne / SHARIF [id number] / [id number] / [id number] / [id number] Electronically signed by Kenisha Melton 12-05-2005 08:28:34 PM documented i n this encounter Plan of Treatment Not on filedocumented as of this encounter Visit Diagnoses Not on filedocumented in this encounter"
--- OUTSIDE RECORDS SUMMARY | ~2019-12-13 | XMS | Encounter Summary ---
Demographics + + + | Address | [address] | | | [place] [address] | + + + | Home Phone [...] Team Providers + +------+ + | Care Programs Assistant Name | Role | Phone | [...] as of this encounter Progress Notes Interface, Sand Mill Operator In - 01/12/2005 6:20 AM PDT [id number] GEOVANNI Barnes Clinic Date: 11/18/2004 Clinic: General [...] patient to send pictures to our financial services auditor and multi operation machine operator for evaluation for medicare for panniculectomy. Described [...] authorization for panniculectomy. Melisa Thorne / SHARIF [id number] / [id number] / [id number] / [id number] cc: Chris Padgett M.D. Joanna Valdez MD [facility] [address] [place] [address] Electronically signed by Kenisha Melton 11-26-2004 05:00:55 PM documented i n this encounter Plan of Treatment Not on filedocumented as of this encounter Visit Diagnoses Not on filedocumented in this encounter"
--- OUTSIDE RECORDS SUMMARY | ~2019-12-13 | XMS | Encounter Summary ---
Demographics + + + | Address | [address] | | | [place] [address] | + + + | Home Phone [...] Providers + +------+ + | Care Press Secretary Name | Role | Phone | [...] as of this encounter Progress Notes Interface, Cardiology Teacher In - 01/12/2005 9:13 AM PDT [id number] GEOVANNI Barnes Clinic Date: 04/10/2004 Clinic: Rheumatology [...] with sitting and it is worse in multi purpose machine operator and early evening. Her IGF-1 was low at 71 in one of her visits and that could have been from any number of things including obesity, fibromyalgia, or one could consider that she has a growth hormone deficiency syndrome. She did have an episode of severe vaginal bleeding, and I was wondering if perhaps she had gotten Crut's syndrome, however, her fibromyalgia symptoms started 10 [...] 3 months. Caitlin Rivera M.S., F.N.P. / [id number] / [id number] / [id number] / cc: Pedrito Gutierrez M.D. [address] [facility] [place] [address] documented i n this encounter Plan of Treatment Not on filedocumented as of this encounter Visit Diagnoses Not on filedocumented in this encounter"
--- OUTSIDE RECORDS SUMMARY | ~2019-12-13 | XMS | Encounter Summary ---
Demographics + + + | Address | [address] | | | [place] [address] | + + + | Home Phone [...] Team Providers + +------+ + | Care Fork Operator Name | Role | Phone | [...] Rd | Urologist) | | | | [facility] | [place], [place] | | | | | and [place], | [address] | | | | | [facility] | [phone] | | | | | [place], [place] | | | | | | [address] | | | | | | [phone] | | | +--------+ + + + [...]
--- OUTSIDE RECORDS SUMMARY | ~2019-12-13 | XMS | Encounter Summary ---
Demographics + + + | Address | [address] | | | [place] [address] | + + + | Home Phone [...] Team Providers + +------+ + | Care Drawer Waxer Name | Role | Phone | + +------+ + | Crystal Gutierrez MD | PCP | | + +------+ + Encounter Details +--------+ + + + + | Date | Type | Department | Care Team | Description | +--------+ + + + + | 09/14/ | Procedure - | [facility] Division of | Endoscopy, Gi [...] [address] | | | | | | [place], [place] | | | | | | [address] | | | | | | [phone] | | | +--------+ + + + [...] + + + | PROCEDURES:PANENDOSCOPY (EGD) CPT: [id number]. PERSONNEL:THE | | | ATTENDING PHYSICIAN WAS [...] AM PDT | | PROCEDURES:PANENDOSCOPY (EGD) CPT: [id number]. | | PERSONNEL:THE ATTENDING PHYSICIAN WAS PRESENT [...]
--- OUTSIDE RECORDS SUMMARY | ~2019-12-13 | XMS | Encounter Summary ---
Demographics + + + | Address | [address] | | | [place] [address] | + + + | Home Phone [...] Team Providers + +------+ + | Care Heat And Vent Aircraft Mechanic Name | Role | Phone | [...]
--- OUTSIDE RECORDS SUMMARY | ~2019-12-13 | XMS | Encounter Summary ---
Demographics + + + | Address | [address] | | | [place] [address] | + + + | Home Phone [...] Providers + +------+ + | Care Yard Switch Operator Name | Role | Phone | [...] Other (wondering | | 2008 | | Hiram [address] | [address] | ablout colonoscopy) | | | | Ave Mailcode: CH4S | [facility] | | | | | [facility] | [place], [place] | | | | | and [place], | [address] | | | | | [facility] | [phone] | | | | | [place], [place] | | | | | | [address] | | | | | | [phone] | | | +--------+ + + + [...]
--- OUTSIDE RECORDS SUMMARY | ~2019-12-13 | XMS | Encounter Summary ---
Demographics + + + | Address | [address] | | | [place] [address] | + + + | Home Phone [...] Providers + +------+ + | Care Product Support Technician Name | Role | Phone [...] [place], [place] | | | | | [address] | [address] | | | | | Loop Mailcode: OPC5 | [phone] | | | | | Outpatient Clinic | | | | | | [facility] | | | | | | [place] [address] | | | | | | [phone] | | | +--------+ + + + [...] DEPARTMENT OF | [address] | [place] [address] | | | PATHOLOGY | [address] | | | + + + + + | [facility] DEPARTMENT OF | [address] | [place] [address] | | | PATHOLOGY | [address] [...] | [facility] | [address] | [place] [address] | | | PATHOLOGY | [address] | | | + + + + + | [facility] | [address] | [place] [address] | | | PATHOLOGY | [address] | | | + + + + + documented in this encounter Visit Diagnoses Not on filedocumented in this encounter"
--- OUTSIDE RECORDS SUMMARY | ~2019-12-13 | XMS | Encounter Summary ---
Demographics + + + | Address | [address] | | | [place] [address] | + + + | Home Phone [...] Providers + +------+ + | Care Fruit Coordinator Name | Role | Phone | [...] | | | | Mailcode: CR131 | [place], [place] | | | | | Outpatient Clinic | [address] | | | | | [facility], | [phone] | | | | | [place] [address] | | | | | | [phone] | | | +--------+ + + + [...] | | | | | 2,SERUM | [facility] | | | | | | Laboratories. | | | | + + + + + + + + | Specimen | + + | | + + + + + + + | Performing | Address | City/State/Zipcode | Phone Number | | Organization | | | | + + + + + | [facility] | [address] | [place] [address] | | | LABORATORY | | | | + + + + + documented in this encounter Visit Diagnoses Not on filedocumented in this encounter"
--- OUTSIDE RECORDS SUMMARY | ~2019-12-13 | XMS | Encounter Summary ---
Demographics + + + | Address | [address] | | | [place] [address] | + + + | Home Phone [...] Providers + +------+ + | Care Rail Maintenance Worker Name | Role | Phone [...] + + | 09/12/ | Telephone | [facility] Comprehensive | Miranda Lambert, | Medication | | 2009 | | Pain Center at | ANP | Adjustment (rec's | | | | [place] | | for weaning due to | | | | [address] | | over use) | | | | Mailcode: CH15P | | | | | | [facility] | | | | | | and Healing, | | | | | | Building | | | | | | Floor [place], [place] | | | | | | [address] | | | | | | [phone] | | | +--------+ + + + [...]
--- OUTSIDE RECORDS SUMMARY | ~2019-12-13 | XMS | Encounter Summary ---
Demographics + + + | Address | [address] | | | [place] [address] | + + + | Home Phone [...] Team Providers + +------+ + | Care Changeover Operator Name | Role | Phone | + +------+ + | Pedrito Gutierrez MD | PCP | | + +------+ + Encounter Details +--------+ + + + + | Date | Type | Department | Care Team | Description | +--------+ + + + + | 11/24/ | Respiratory | | Other, Faculty | | | 2003 | | | [phone] | | | | [facility] | | [...]
--- OUTSIDE RECORDS SUMMARY | ~2019-12-13 | XMS | Encounter Summary ---
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 Diagnosis: Grantham I: 1. (296.32) Major depressive disorder, recurrent, moderate. 2. (309.24) Adjustment disorder with anxiety. 3. 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 Grantham II: Deferred Grantham III: abdominal pain, migraine headache, low back pain. Grantham IV: low finances Grantham V: GAF 50 Plan: Return in 2 weeks. Check pacing, relaxation, activity, distraction. Ask about coping with previous headache. Continue cognitive/behavioral therapy. Total time spent with patient was approximately 45 minutes. LUKASZ CHARLES [facility] [address] [facility] [place] [address] documented in this encount er Plan of [...]
--- OUTSIDE RECORDS SUMMARY | ~2019-12-13 | XMS | Encounter Summary ---
Demographics + + + | Address | [address] | | | [place] [address] | + + + | Home Phone [...] Providers + +------+ + | Care Concrete Finishing Machine Operator Name | Role | Phone [...]
--- OUTSIDE RECORDS SUMMARY | ~2019-12-13 | XMS | Encounter Summary ---
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 Since prior visit she had a 06/24/06: Bone density study and her T-Score -1.2 lumbar spine a nd -2.2 proximal femur. Collection Information Collection Date Collection Time Resulting Agency 03/10/2006 2:42 PM [facility] DEPARTMENT OF PATHOLOGY Component Results Component Value Range Status CALCIUM (LAB) 9.5 8.5 - 10.5 mg/dL Fin SPINE LUMBAR 2 VIEWS AT 1421 HOURS LUMBAR SPINE, 10/01/05 HISTORY: Back pain. FINDINGS: AP and lateral views of the lumbar spine show five izs-mjz-bwelwxz lumbar vertebrae in normal alignment with no [...] spent in reviewing of chart, imaging and drug abuse counselor ing/coordindation of care. 1. For the [...] appropriate care and safety for your patient, [facility] r equires a primary [...] Please indicate and fax your response to [phone]. I called and left a message on [facility] general voice mail requesting he call me to discuss prescribing and patient care. DELFINA MOLINA [facility] Pain Center Mail code CH 4P [facility] Health and [address] [address] aurav Tasha - 07/30/2006 7:35 [...] | | + +---------+ + + | [facility] DEPARTMENT OF | | | | [...]
--- OUTSIDE RECORDS SUMMARY | ~2019-12-13 | XMS | Encounter Summary ---
Demographics + + + | Address | [address] | | | [place] [address] | + + + | Home Phone [...] [address] | | | | | [place], [place] | [place], [place] | | | | | [address] | [address] | | | | | [phone] | [phone] | | | | | | | [...]
--- OUTSIDE RECORDS SUMMARY | ~2019-12-13 | XMS | Encounter Summary ---
Demographics + + + | Address | [address] | | | [place] [address] | + + + | Home Phone [...] Providers + +------+ + | Care Industrial Training Specialist Name | Role | Phone [...]
--- OUTSIDE RECORDS SUMMARY | ~2019-12-13 | XMS | Encounter Summary ---
Demographics + + + | Address | [address] | | | [place] [address] | + + + | Home Phone [...] Providers + +------+ + | Care Nursing Executive Name | Role | Phone | [...] Pavilion | | | | | | [place], [place] | | | | | | [address] | | | | | | [phone] | | | +--------+ + + + [...]
--- OUTSIDE RECORDS SUMMARY | ~2019-12-13 | XMS | Encounter Summary ---
Demographics + + + | Address | [address] | | | [place] [address] | + + + | Home Phone [...] Providers + +------+ + | Care Buckle Gluer Name | Role | Phone | [...] | 11/23/ | Office | [facility] Comprehensive | Delfina Molina, | LBP [...] Encounter for | | | | Floor [place], [place] | | Long-Term (Current) | | | | [address] | | Use of Opioids; | | | | [phone] | | Major Depressive | | | | | | Disorder, Recurrent | | | | | | Episode, Moderate | | | | | | ([facility]); Adjustment | | | | | [...] is a 47 y.o. female [facility] Comprehensive Pain Center Return Visit Chief [...] drawing has be completed, which I reviewed. [facility] Brief Pain Inventory: Right Now: 9 [...] Result Impression NAME: BELINDA MEEHAN MR #: [id number] DATE OF EXAM: [id number] PHYSICIAN: EMMA ROJAS [...] DISK BULGE. Transcribed By: Armaan Mata : [id number] : 1442 Approved By: Radiologist: Physical Examination: [...] seeing Nathalia Arora PT here at the [facility] to address her back pain [...] vs Hernia. 6. PT here at the [facility] available 7. Repeat TESI as needed. DELFINA MOLINA [facility] COMPREHENSIVE PAIN CENTER Mail code CH 4P [facility] Health and [address] [address] JasenTy montilla - 9:12 AM [...]
--- OUTSIDE RECORDS SUMMARY | ~2019-12-13 | XMS | Encounter Summary ---
Demographics + + + | Address | [address] | | | [place] [address] | + + + | Home Phone [...] Team Providers + +------+ + | Care Horizontal Boring Mill Operator Name | Role | Phone [...] + + | 04/09/ | Telephone | [facility] Division of | Carlos Arreola, | Erroneous Encounter | | 2005 | | Gastroenterology/Hep | [address] | - Disregard | | | | atology [address] | (duplicate call; see | | | | [address] | [place] [address] | other encounter ) | | | | Mailcode: PV310 | [phone] | | | | | [facility] | | | | | | [address] | | | | | | [place], [place] | | | | | | [address] | | | | | | [phone] | | | +--------+ + + + [...]
--- OUTSIDE RECORDS SUMMARY | ~2019-12-13 | XMS | Encounter Summary ---
Demographics + + + | Address | [address] | | | [place] [address] | + + + | Home Phone [...] | and counseling | | | | [facility] | [place], [place] | (08/28/08 Lab | | | | and Healing, | [address] | results) | | | | [place] [address] [facility] | [phone] | | | | | [place], [place] | | | | | | [address] | | | | | | [phone] | | | +--------+ + + + [...]
--- OUTSIDE RECORDS SUMMARY | ~2019-12-13 | XMS | Encounter Summary ---
Demographics + + + | Address | [address] | | | [place] [address] | + + + | Home Phone [...] Providers + +------+ + | Care Garage Door Technician Name | Role | Phone | [...] [address] | | | | | [place] [facility] | [place], [place] | | | | | [address] | [address] | | | | | [address] | [phone] | | | | | [facility] | | | | | | Physician's | | | | | | Pavilion [place], | | | | | | [place] [address] | | | | | | [phone] | | | +--------+--------+ + + + [...]
--- OUTSIDE RECORDS SUMMARY | ~2019-12-13 | XMS | Encounter Summary ---
Demographics + + + | Address | [address] | | | [place] [address] | + + + | Home Phone [...] Team Providers + +------+ + | Care Aboriginal Community Council Member Name | Role | Phone | + +------+ + | Pedrito Gutierrez MD | PCP | | + +------+ + Encounter Details +--------+---------+ + + + | Date | Type | Department | Care Team | Description | +--------+---------+ + + + | 09/09/ | Office | Comprehensive Pain | Nathalia Arora | Neck Pain; | | 2006 | Visit | 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 Provider: DELFINA MOLINA AN[facility] Nathalia Garrett - 007 4:49 PM PDT Physical Therapy Medicare Progress Note Date: 09/09/2006 Belinda J Shefali [id number]. 1960 Start of Care: 06/23/2006 Referring Provider: [...] with walking and sitting; driving back to [place] 2 weeks ago, stopped at rest place and got out of care, falling onto B knees, getting better. Objective: Apparently patient's trip home 2 weeks ago was most likely related to her positi oning, ie B knees were hyperflexed for a prolonged time. She has not fallen since then, use s her lofstrand crutches consistently. Functionally, patient is walking 25 minutes at [employer] at least daily and tolerating it we [...] + + +--------+ + + | [facility] MANUAL THER | Procedures | Routin | [...] NH THERAPEUTIC | Procedures | Routin | Neck [...]
--- OUTSIDE RECORDS SUMMARY | ~2019-12-13 | XMS | Encounter Summary ---
Demographics + + + | Address | [address] | | | [place] [address] | + + + | Home Phone [...] Providers + +------+ + | Care Cleaning Porter Name | Role | Phone | [...] + + | 08/23/ | Telephone | [facility] | Alanis, | Medication Follow-up | | 2018 | | MEDICINE [address] | MD [place] | (Prior | | | | MALIK ZHAO, | [address] | Authorization | | | | [place] [id number] | [place] [id number] | needed) | | | | [phone] | [phone] | | | | | | | [...] 01/05/2019 4:03 PM PDTCalled Tayo Mcdonough in [place] a nd spoke to Lester, he verified that patient has been getting the medication in November and also in October with no PA being required on medication. Closed encounter today due to no PA being r equired. elephone Encounter - Shalonda Mcdermott - 08/23/2018 1:57 PM PDTBrenevin stated she [...] Visit | | [facility] [address] | | | | | | [address] | | | | | | [place] [address] | | | | | | [phone] | | | | | | | | +--------+---------+ + + + | 12/20/ | Office | Otolaryngology | Ulysses Genao MD | | | 2019 | Visit | | [address] | | | | | | [address] [place] | | | | | | [place] [address] | | | | | | [phone] | | | | | | | | +--------+---------+ + + + | 02/15/ | Office | Internal Medicine | Alanis, | | | 2019 | Visit | | MD [place] | | | | | | [address] | | | | | | [place] [address] | | | | | | [phone] | | | | | | | | +--------+---------+ + + + documented as of this encounter Visit Diagnoses Not on filedocumented in this encounter"
--- OUTSIDE RECORDS SUMMARY | ~2019-12-13 | XMS | Encounter Summary ---
Demographics + + + | Address | [address] | | | [place] [address] | + + + | Home Phone [...] Providers + +------+ + | Care Plant Facilities Technician Name | Role | Phone | + +------+ + PCP | Unavailable | + +------+ + Encounter Details +--------+ + + + + | Date | Type | Department | Care Team | Description | +--------+ + + + + | 11/22/ | Results | | Other, Faculty | | | 2004 | Only | | [phone] | | +--------+ + + + + [...] + | Ordered by SYEDA MCKENZIE | [facility] | | | DEPARTMENT OF | | | PATHOLOGY | + + + + + + + + | Performing | Address | City/State/Zipcode | Phone Number | | Organization | | | | + + + + + | [facility] DEPARTMENT OF | [address] [facility] | [place] [address] | | | PATHOLOGY | [address] | | | + + + + + | [place] DEPARTMENT OF | [address] | [place] [address] | | | PATHOLOGY | [address] [...] + + + | [facility] DEPARTMENT | [address] [facility] [facility] | [place] [address] | | | PATHOLOGY | [address] | | | + + + + + | [facility] | [address] [facility] [facility] | [place] [address] | | | PATHOLOGY | [address] [...] | [facility] | [address] [facility] [facility] | [place] [address] | | | PATHOLOGY | [address] | | | + + + + + | [facility] | [address] [facility] [facility] | [place] [address] | | | PATHOLOGY | [...] DEPARTMENT OF | [address] | [place] [address] | | | PATHOLOGY | [address] | | | + + + + + | [facility] DEPARTMENT OF | [address] | [place] [address] | | | PATHOLOGY | [address] [...] DEPARTMENT OF | [address] | [place] [address] | | | PATHOLOGY | [address] | | | + + + + + | [facility] DEPARTMENT OF | [address] | [place] [address] | | | PATHOLOGY | [address] [...] + + + | [facility] DEPARTMENT | [address] | [place] [address] | | | PATHOLOGY | [address] | | | + + + + + | [facility] DEPARTMENT OF | [address] | [place] [address] | | | PATHOLOGY | [address] | | | + + + + + documented in this encounter Visit Diagnoses Not on filedocumented in this encounter"
--- OUTSIDE RECORDS SUMMARY | ~2019-12-13 | XMS | Encounter Summary ---
Demographics + + + | Address | [address] | | | [place] [address] | + + + | Home Phone [...] Providers + +------+ + | Care Metal Engraver Name | Role | Phone | + [...] as of this encounter Progress Notes Interface, Back End Web Developer In - 01/11/2005 6:26 PM PDT Referred [...] History was obtained from the patient, [facility] medical records, and two magnetic resonance [...] any point. She has been seen her plastic card grader cardroom in [place], Dr. Lc Renteria, who by her report [...] and fibromyalgia. SOCIAL HISTORY: Patient lives in [place] with her eldest son. She supports herself [...] acute distress. She does have a right-sided [place] crutch which she uses to enter and [...] biceps, triceps, wrist extensors, finger extensors, hand hedis specialist, hip flexors and extensors, and ankle, plantar, and dorsiflexors as well as knee flexors and extensors. There is no pronator drift. Reflexes are 2+ and symmetrical at the biceps, triceps, brachioradialis, patellar, and ankle regions. Toes are downgoing to plantar stimulation. Light touch and tuning fork is within normal limits in the lower extremities. Ntsppa-ui-qomy and fine finger movements are within normal [...] Amin M.D., Neurophthalmology cc: [facility] [address] [facility] [facility] [id number] signed by Interface, Back End Web Developer In at 2004 6:26 PM PDTdocumented in this encounter Plan of Treatment Not on filedocumented as of this encounter Visit Diagnoses Not on filedocumented in this encounter"
--- OUTSIDE RECORDS SUMMARY | ~2019-12-13 | XMS | Encounter Summary ---
Demographics + + + | Address | [address] | | | [place] [address] | + + + | Home Phone [...] Providers + +------+ + | Care Apparel Rental Clerk Name | Role | Phone [...] as of this encounter Progress Notes Interface, Poultry Raiser In - 10/03/2006 2:33 AM PDT [id number] GEOVANNI SKELTON J [id number] Clinic Date: 09/14/2006 Clinic: Rheumatology Belinda Meehan [...] every 3 days changed; Trileptal 225 mg; [place] 10/325; and Actonel. Objective: Weight is 214, [...] to this. Caitlin Rivera M.S., F.N.P. / [id number] / [id number] / [id number] / [id number] cc: Pedrito Gutierrez M.D. [address] [facility] [address], [place] [address] [facility] Electronically signed by Caitlin Rivera 10-02-2006 09:24:29 AM documented in this encounter Plan of Treatment Not on filedocumented as of this encounter Visit Diagnoses Not on filedocumented in this encounter"
--- OUTSIDE RECORDS SUMMARY | ~2019-12-13 | XMS | Encounter Summary ---
Demographics + + + | Address | [address] | | | [place] [address] | + + + | Home Phone [...] Team Providers + +------+ + | Care Placement Specialist Name | Role | Phone | + +------+ + | Petrona Thapa | PCP | | | MD | | | + +------+ + Reason for Visit + +--------+ + | Reason | Onset | Comments | | | Date | | + +--------+ + | Referral | 06/03/ | | | | 2016 | | + +--------+ + Encounter Details +--------+ + + + + | Date | Type | Department | Care Team | Description | +--------+ + + + + | 06/03/ | Telephone | [facility] INTER[facility] | Alanis, | Referral | | 2016 | | MEDICINE [address] [place] [address] | MD Petrona | | | | | [place], | [address] [facility] | | | | | [place] [address] | [place] [address] | | | | | [phone] | [phone] | | | | | | | [...] Encounter - Maggie Montoya LPN - 06/09/2017 4:59 PM PSTPatient notified. Has fol low up appointment with the Pain Clinic next week elephone Encounter - Petrona Thapa MD - 06/04/2017 8:13 AM PSTWill review notes from pain clinic. As you stated, I am not a pain specialist, and unfortunately I cannot override their plan to treat her pain, nor am I in a position whe re I can take it over myself. Electronically signed by Petrona Thapa MD at 8:14 AM PSTTelephone Encounter - Maggie Montoya LPN - 06/03/2017 4:48 PM PSTSpoke to patient about her recent encounter with the pain clinic in the [facility] States that th e new medication that they prescribed her, Simran lopez is not controlling her pain at all. She is having bouts of crying while on the phone continuously asking me if "I understand" ab out her pain. Patient states she is just going to cancel her appointment with the pain clini c that is scheduled on 06/17/17. I strongly advised patient to keep her appointment, as MD has advised that he will not be taking over pain management. When I questioned her about when h er last appt was with the pain clinic, she states that she just got back from her appt with them a little while ago, and she is in a lot of pain from being in the car for so long. I ad vised her that we have not received any notes from the pain clinic for MD to review and will send message to MD to discuss in the am.Electronically signed by Maggie Montoya LPN at 06/03 5:16 PM PSTTelephone Encounter - Juliane Fernandez - 06/03/2017 3:53 PM PSTContact/Gerardo ler: Belinda Contact Number: [phone] Provider/Nurse: Emmy Reason for Call: Referral Last Appointment: 06/01/17 Next Appointment: 08/21/17 Patient called stating she went to pain clinic and was unable to make appointment, patient would like a call back regarding issue. States she's in pain. documented in this encoun ter Plan of Treatment +--------+---------+ + + + | Date | Type | Specialty | Care Team | Description | +--------+---------+ + + + | 12/20/ | Office | Audiology | Elisabet Munson, | | | 2019 | Visit | | [facility] [address] | | | | | [address] [place] | | | | | | [place] [address] | | | | | | [phone] | | | | | | | | +--------+---------+ + + + | 12/20/ | Office | Otolaryngology | Ulysses Genao MD | | | 2019 | Visit | | [address] | | | | | | [place] | | | | | | [place] [address] | | | | | | [phone] | | | | | | | | +--------+---------+ + + + | 02/15/ | Office | Internal Medicine | Alanis, | | | 2019 | Visit | | MD Petrona | | | | | | [address] [place] | | | | | | [place] [address] | | | | | | [phone] | | | | | | | | +--------+---------+ + + + documented as of this encounter Visit Diagnoses Not on filedocumented in this encounter
--- OUTSIDE RECORDS SUMMARY | ~2019-12-13 | XMS | Encounter Summary ---
Demographics + + + | Address | [address] | | | [place] [address] | + + + | Home Phone [...] Team Providers + +------+ + | Care Dispatcher Chief Oil Name | Role | Phone | + +------+ + | Pedrito Gutierrez MD | PCP | | + +------+ + Encounter Details +--------+ + + + + | Date | Type | Department | Care Team | Description | +--------+ + + + + | 05/20/ | Telephone | Digestive Health | Rohan Foley MD | | | 2005 | | [place] [facility] [address] | | | | | | [address] | | | | | | Mailcode: Center | | | | | | for Health and | | | | | | [facility], [address] | | | | | | [place], [place] | | | | | | [address] | | | | | | [phone] | | | +--------+ + + + [...]
--- OUTSIDE RECORDS SUMMARY | ~2019-12-13 | XMS | Encounter Summary ---
Demographics + + + | Address | [address] | | | [place] [address] | + + + | Home Phone [...] Providers + +------+ + | Care Funeral Car Driver Name | Role | Phone [...] + + | 08/20/ | Telephone | [facility] | Alanis, | Other | | 2017 | | MEDICINE [address] | MD Petrona | | | | | [place], | [address] [facility] | | | | | [place] [address] | [place] [address] | | | | | [phone] | | | | | | | [...] PM PDTPatient notified of corre ctions elephone Encount er - Petrona Thapa MD - 08/24/2017 11:57 AM PDTCorrections made. Electronical ly signed by Petrona Thapa MD at 08/24/2017 11:57 AM PDTTelephone Encounter - Sakshi Adriana Malissa - 08/20/2017 9:06 AM PSTPatient called in wanting to speak with the nurs e regarding an issue with her records. Patient stated she was seen in [place] yesterday for a s urgery on her [...] a lumpectomy. Patient has an appointment this reena at 9:45 but otherwise will be available and would like a call back regarding this, [phone]. documented in this encounter Plan of Treatment +--------+---------+ + + + | Date | Type | Specialty | Care Team | Description | +--------+---------+ + + + | 12/20/ | Office | Audiology | Elisabet Munson MS | | | 2019 | Visit | | [facility] [address] | | | | | | [address] [address] [place] | | | | | | [place] [address] | | | | | | [phone] | | | | | | | | +--------+---------+ + + + | 12/20/ | Office | Otolaryngology | Ulysses Genao MD | | | 2019 | Visit | | [address] | | | | | | [address] [place] | | | | | | [place] [address] | | | | | | [phone] | | | | | | | | +--------+---------+ + + + | 02/15/ | Office | Internal Medicine | Alanis, | | | 2019 | Visit | | MD Petrona | | | | | | [address] [place] | | | | | | [place] [address] | | | | | | [phone] | | | | | | | | +--------+---------+ + + + documented as of this encounter Visit Diagnoses Not on filedocumented in this encounter"
--- OUTSIDE RECORDS SUMMARY | ~2019-12-13 | XMS | Encounter Summary ---
Demographics + + + | Address | [address] | | | [place] [address] | + + + | Home Phone [...] Providers + +------+ + | Care Cotton Dispatcher Name | Role | Phone | [...] + + | 07/16/ | Telephone | [facility] | Alanis, | Results, Imaging | | 2017 | | MEDICINE [address] | MD Petrona | | | | | [place], | [address] [facility] [place] | | | | | [place] [address] | [place] [address] | | | | | [phone] | [phone] | | | | | | | [...] - 07/16/2017 3:[address] [facility], reporting negative DVT. notifiedElectronically signed by [...] | | | | | [place] [address] | | | | | | [phone] | | | | | | | | +--------+---------+ + + + | 12/20/ | Office | Otolaryngology | Ulysses Genao MD | | | 2019 | Visit | | [address] | | | | | | [address] [place] | | | | | | [place] [address] | | | | | | [phone] | | | | | | | | +--------+---------+ + + + | 02/15/ | Office | Internal Medicine | Alanis, | | | 2019 | Visit | | MD Petrona | | | | | | [address] [place] | | | | | | [place] [address] | | | | | | [phone] | | | | | | | | +--------+---------+ + + + documented as of this encounter Visit Diagnoses Not on filedocumented in this encounter"
--- OUTSIDE RECORDS SUMMARY | ~2019-12-13 | XMS | Encounter Summary ---
Demographics + + + | Address | [address] | | | [place] [address] | + + + | Home Phone [...] Pavilion | | | | | | [place], [place] | | | | | | [address] | | | | | | [phone] | | | +--------+ + + + [...]
--- OUTSIDE RECORDS SUMMARY | ~2019-12-13 | XMS | Encounter Summary ---
Demographics + + + | Address | [address] | | | [place] [address] | + + + | Home Phone [...] + + | 11/14/ | Hospital | [facility] | Alanis, | Toe pain, chronic, | | 2019 | Encounter | [facility] | MD Petrona | left | | | | [address] [place] | [address] [facility] | | | | | [place] | [place] [address] | | | | | [address] | [phone] | | | | | [phone] | | | +--------+ + + + [...] | | | | | | : alf | Decreased | | | | | [...] | | | | | [place] [address] | | | | | | [phone] | | | | | | | | +--------+---------+ + + + | 12/20/ | Office | Otolaryngology | Ulysses Genao MD | | | 2019 | Visit | | [address] | | | | | | [address] [place] | | | | | | [place] [address] | | | | | | [phone] | | | | | | | | +--------+---------+ + + + | 02/15/ | Office | Internal Medicine | Alanis, | | | 2019 | Visit | | MD Petrona | | | | | | [address] [place] | | | | | | [place] [address] | | | | | | [phone] | | | | | | | [...]
--- OUTSIDE RECORDS SUMMARY | ~2019-12-13 | XMS | Encounter Summary ---
Demographics + + + | Address | [address] | | | [place] [address] | + + + | Home Phone [...] Providers + +------+ + | Care Label Machine Operator Name | Role | Phone | + +------+ + | Petrona Thapa | PCP | | | MD | | | + +------+ + Reason for Visit + +--------+ + | Reason | Onset | Comments | | | Date | | + +--------+ + | Diarrhea | 05/26/ | | | | 2017 | | + +--------+ + Encounter Details +--------+ + + + + | Date | Type | Department | Care Team | Description | +--------+ + + + + | 05/26/ | Telephone | [facility] | Alanis, | Diarrhea | | 2017 | | MEDICINE [address] | MD Petrona | | | | | [place], | [address] [facility] | | | | | [place] [address] | [place] [address] | | | | | [phone] | [phone] | | | | | | | [...] Telephone Encounter - Maggie Montoya LPN - 05/26/2018 5:35 PM PSTAdvised to use imodium fo r tonight and will call back if any worsening symptoms elephone Encounter - Juliane Elena - 05/26/2018 4:37 PM PS TPatient called stating she needs to speak to the nurse it's urgent, having diarrhea and wou ld like a call back today. d ocumented in this encounter Plan of Treatment +--------+---------+ [...] | | | | | [place] [address] | | | | | | [phone] | | | | | | | | +--------+---------+ + + + | 12/20/ | Office | Otolaryngology | Ulysses Genao MD | | | 2019 | Visit | | [address] | | | | | | [address] [place] | | | | | | [place] [address] | | | | | | [phone] | | | | | | | | +--------+---------+ + + + | 02/15/ | Office | Internal Medicine | Alanis, | | | 2019 | Visit | | MD Petrona | | | | | | [address] [place] | | | | | | [place] [address] | | | | | | [phone] | | | | | | | | +--------+---------+ + + + documented as of this encounter Visit Diagnoses Not on filedocumented in this encounter"
--- OUTSIDE RECORDS SUMMARY | ~2019-12-13 | XMS | Encounter Summary ---
Demographics + + + | Address | [address] | | | [place] [address] | + + + | Home Phone [...] Providers + +------+ + | Care Personal Care Aid Name | Role | Phone [...] | | 2006 | | [facility] at [facility] | MD Darrion,PhD [address] | | | | | for Health and | [address] | | | | | Healing [address] | [place], [place] | | | | | [place] Mailcode: | [address] | | | | | CH[facility]A [facility] | [phone] | | | | | Health and Healing, | | | | | | [facility] | | | | | | Floor [place], [place] | | | | | | [address] | | | | | | [phone] | | | +--------+ + + + [...]
--- OUTSIDE RECORDS SUMMARY | ~2019-12-13 | XMS | Encounter Summary ---
Demographics + + + | Address | [address] | | | [place] [address] | + + + | Home Phone [...] Providers + +------+ + | Care Cream Tester Name | Role | Phone | [...] Refill Request | | 2007 | | [place] [address] | [address] | (Sucralfate) | | | | [place] Mailcode: CH4S | [facility] | | | | | [facility] | [place], [place] | | | | | and Healing, | [address] | | | | | [facility] | [phone] | | | | | Floor [place], [place] | | | | | | [address] | | | | | | [phone] | | | +--------+--------+ + + + [...]
--- OUTSIDE RECORDS SUMMARY | ~2019-12-13 | XMS | Encounter Summary ---
Demographics + + + | Address | [address] | | | [place] [address] | + + + | Home Phone [...] Providers + +------+ + | Care Parking Patroller Name | Role | Phone | [...] + + | 09/12/ | Telephone | [facility] Comprehensive | Miranda Lambert, | Medication | | 2009 | | [facility] at | ANP | Adjustment (rec's | | | | [place] | | for weaning due to | | | | [address] | | over use) | | | | Mailcode: CH15P | | | | | | [facility] | | | | | | and Healing, | | | | | | Building | | | | | | Floor [place], [place] | | | | | | [address] | | | | | | [phone] | | | +--------+ + + + [...]
--- OUTSIDE RECORDS SUMMARY | ~2019-12-13 | XMS | Encounter Summary ---
Demographics + + + | Address | [address] | | | [place] [address] | + + + | Home Phone [...] Providers + +------+ + | Care Band Salvager Name | Role | Phone | + +------+ + | Pedrito Gutierrez MD | PCP | | + +------+ + Encounter Details +--------+ + + + + | Date | Type | Department | Care Team | Description | +--------+ + + + + | 07/30/ | Office | [facility] [address] | Clinic, | Progress Note | | 2006 | Visit-Trans | [facility] | Endocrinology | | | | kurt | Sacha | | | | | | [facility], | | | | | | 7th floor | | | | | | [place], [place] | | | | | | [address] | | | | | | [phone] | | | +--------+ + + + [...] of this encounter Progress Notes Interface, Client Services Assistant In - 09/16/2006 7:22 AM PDT [id number] GEOVANNI [place] [id number] Clinic Date: 07/30/2006 Clinic: Endocrinology Subjective: Belinda [...] year. Beto Meeks M.D. PD / HS [id number] / [id number] / [id number] / [id number] cc: Joanna Arshad M.D. Jonathan Hitzman, M.D. [address] [facility] [place] [address] Electronically signed by Beto Meeks 09-15-2006 11:40:17 PM documented in this encounter Plan of Treatment Not on filedocumented as of this encounter Visit Diagnoses Not on filedocumented in this encounter"
--- OUTSIDE RECORDS SUMMARY | ~2019-12-13 | XMS | Encounter Summary ---
Demographics + + + | Address | [address] | | | [place] [address] | + + + | Home Phone [...] | | | | Clinical Nutrition | [place], [place] | | | | | [address] | [address] | | | | | Loop Mailcode: OPC5 | [phone] | | | | | Outpatient Clinic | | | | | | [facility] | | | | | | [place] [address] | | | | | | [phone] | | | +--------+ + + + [...] [facility] | [address] | [place], [place] | | | UNIV P[facility] - INTFC | | [address] | | + + + + + [...] + + + + | [facility] | [address] | [place] [address] | | | LABORATORY | | | [...] DEPARTMENT OF | [address] | [place] [address] | | | PATHOLOGY | [address] | | | + + + + + | [facility] DEPARTMENT OF | [address] | [place] [address] | | | PATHOLOGY | [address] | | | + + + + + LIPASE (01/11/2002 3:50 PM PDT) + +--------+ + + + | Component | Value | Ref Range | Performed | Pathologist | | | | | At | Signature | + +--------+ + + + | LIPASE | 21 (L) | 22 - 51 U/L | [facility] | | | (LAB) | | | [...] [facility] [place] | [address] [facility] | [place] [address] | | | PATHOLOGY | [address] | | | + + + + + | [facility] | [facility] | [place] [address] | | | PATHOLOGY | [address] [...] DEPARTMENT OF | [address] | [place] [address] | | | PATHOLOGY | [address] | | | + + + + + | [facility] DEPARTMENT | [address] | [place] [address] | | | PATHOLOGY | [address] [...] [place] | [address] | [place] [address] | | | PATHOLOGY | [address] | | | + + + + + | [facility] | [facility] [address] | [place] [address] | | | PATHOLOGY | [address] | | | + + + + + documented in this encounter Visit Diagnoses Not on filedocumented in this encounter"
--- OUTSIDE RECORDS SUMMARY | ~2019-12-13 | XMS | Encounter Summary ---
Demographics + + + | Address | [address] | | | [place] [address] | + + + | Home Phone [...] Team Providers + +------+ + | Care Filenet Architect Name | Role | Phone | + +------+ + | Sulaiman Carrera MD | PCP | | + +------+ + Encounter Details +--------+ + + + + | Date | Type | Department | Care Team | Description | +--------+ + + + + | 03/19/ | Ancillary | Registration [id number] | | | | 2004 | Registratio | [address] | | | | | n | [place] Mailcode: RPB07 | | | | | | [place], [place] | | | | | | [address] | | | | | | [phone] | | | +--------+ + + + [...]
--- OUTSIDE RECORDS SUMMARY | ~2019-12-13 | XMS | Encounter Summary ---
Demographics + + + | Address | [address] | | | [place] [address] | + + + | Home Phone [...] Providers + +------+ + | Care Manager Strategic Name | Role | Phone | + [...] | | | | Clinical Nutrition | [place], [place] | | | | | [address] | [address] | | | | | Loop Mailcode: OPC5 | [phone] | | | | | Outpatient Clinic | | | | | | [facility] | | | | | | [place] [address] | | | | | | [phone] | | | +--------+ + + + [...] Blood Test performed by | | | [facility]. | | + + + + + + + + | Performing | Address | City/State/Zipcode | Phone Number | | Organization | | | | + + + + + | [facility] | [address] | [place] [address] | | | LABORATORY | | | [...] + + + | [facility] | [address] | [place] [address] | | | LABORATORY | | | | + + + + + documented in this encounter Visit Diagnoses Not on filedocumented in this encounter"
--- OUTSIDE RECORDS SUMMARY | ~2019-12-13 | XMS | Encounter Summary ---
Demographics + + + | Address | [address] | | | [place] [address] | + + + | Home Phone [...] Providers + +------+ + | Care Cutter Finisher Name | Role | Phone | [...] | | | | [facility] Physician's | [place], [place] | | | | | [address] | [address] | | | | | [place], [place] | [phone] | | | | | [address] | | | | | | [phone] | | | +--------+ + + + [...] | + + + + + | [facility] DEPARTMENT OF | [address] | [place] [address] | | | PATHOLOGY | [address] | | | + + + + + | [facility] DEPARTMENT OF | [address] | [place] [address] | | | PATHOLOGY | [address] [...] [facility] DEPARTMENT OF | [facility] | [place] [address] | | | PATHOLOGY | [address] | | | + + + + + | [facility] DEPARTMENT OF | [facility] | [place] [address] | | | PATHOLOGY | [address] [...] DEPARTMENT OF | [address] | [place] [address] | | | PATHOLOGY | [address] | | | + + + + + | [facility] DEPARTMENT OF | [address] [facility] | [place] [address] | | | PATHOLOGY | [address] [...] DEPARTMENT OF | [address] | [place], [place] [address] | | | PATHOLOGY | [address] | | | + + + + + | [facility] DEPARTMENT OF | [address] | [place] [address] | | | PATHOLOGY | [address] [...] + | [facility] | [address] | [place] [address] | | | PATHOLOGY | [address] | | | + + + + + | [facility] | [address] | [place] [address] | | | PATHOLOGY | [address] | | | + + + + + documented in this encounter Visit Diagnoses Not on filedocumented in this encounter"
--- OUTSIDE RECORDS SUMMARY | ~2019-12-13 | XMS | Encounter Summary ---
Demographics + + + | Address | [address] | | | [place] [address] | + + + | Home Phone [...] Team Providers + +------+ + | Care Magnaflux Operator Name | Role | Phone | [...] of this encounter Progress Notes Interface, Senior Data Quality Analyst In - 01/13/2005 9:03 AM PDT [id number] GEOVANNI Barnes Clinic Date: 01/02/2005 Clinic: [facility] Subjective: Ms. Meehan presents today on a walk-in basis for evaluation of some discharge from her panniculectomy incisions over her medial thighs. She reports that she was in town today from [place], [place], to get some labs drawn at [facility] and decided to stop by the clinic [...] Sree Riley M.D. Chris Padgett M.D. / [id number] / [id number] / [id number] / [id number] C: 01/08/2005 cmw documented i n this encounter Plan of Treatment Not on filedocumented as of this encounter Visit Diagnoses Not on filedocumented in this encounter"
--- OUTSIDE RECORDS SUMMARY | ~2019-12-13 | XMS | Encounter Summary ---
Demographics + + + | Address | [address] | | | [place] [address] | + + + | Home Phone [...] Team Providers + +------+ + | Care Welt Rander Name | Role | Phone | + [...] as of this encounter Progress Notes Interface, Venetian Blind Assembler In - 12/11/2005 2:05 AM PDT [id number] GEOVANNI SKELTON J [id number] Clinic Date: 11/27/2005 Clinic: Rheumatology Primary Care [...] 6 months. Caitlin Rivera M.S., F.N.P. / [id number] / [id number] / [id number] / [id number] cc: Pedrito Gutierrez M.D. [address] [place] [id number] Electronically signed by Caitlin Rivera 12-10-2005 09:27:21 AM documented i n this encounter Plan of Treatment Not on filedocumented as of this encounter Visit Diagnoses Not on filedocumented in this encounter"
--- OUTSIDE RECORDS SUMMARY | ~2019-12-13 | XMS | Encounter Summary ---
Demographics + + + | Address | [address] | | | [place] [address] | + + + | Home Phone [...] + | Care Model And Mold Maker Plaster Name | Role | Phone | + +------+ + | Maria Esther Cintron MD | PCP | | + +------+ + Encounter Details +--------+ + + + + | Date | Type | Department | Care Team | Description | +--------+ + + + + | 10/27/ | Telephone | Digestive Health | Chris Padgett, | | | 2008 | | [place] [address] | [address] [facility] | | | | | [place] Mailcode: CH4S | [address] | | | | | Center for Health | [place], [place] | | | | | and Healing, | [address] | | | | | Building , 6th | [phone] | | | | | Floor [place], [place] | | | | | | [address] | | | | | | [phone] | | | +--------+ + + + [...]
--- OUTSIDE RECORDS SUMMARY | ~2019-12-13 | XMS | Encounter Summary ---
Demographics + + + | Address | [address] | | | [place] [address] | + + + | Home Phone [...] Team Providers + +------+ + | Care Offset Plate Preparation Supervisor Name | Role | Phone [...] as of this encounter Progress Notes Interface, Count Team Clerk In - 07/09/2005 2:07 AM PST [id number] GEOVANNI Barnes Clinic Date: 07/03/2005 Clinic: Ms. [...] this operation. Chris Padgett M.D. ROSA / [id number] / [id number] / [id number] / [id number] Electronically signed by Chris Padgett 07-08-2005 01:45:20 PM documented i n this encounter Plan of Treatment Not on filedocumented as of this encounter Visit Diagnoses Not on filedocumented in this encounter"
--- OUTSIDE RECORDS SUMMARY | ~2019-12-13 | XMS | Encounter Summary ---
Demographics + + + | Address | [address] | | | [place] [address] | + + + | Home Phone [...] Providers + +------+ + | Care Insurance Adviser Name | Role | Phone | [...] + | 05/18/ | Refill | [facility] | Alanis, | Medication Refill | | 2016 | | MEDICINE [address] | MD Petrona | | | | | MALIK [place], | [address] [facility] | | | | | [place] [address] | [place] [address] | | | | | [phone] | [phone] | | | | | | | [...] - 05/18/2017 4:11 PM PSTrx called into [facility] in [place], [place]. Patient notified 4: 13 PM PSTTelephone [...] [place] | | | | | | [place] [address] | | | | | | [phone] | | | | | | | | +--------+---------+ + + + | 12/20/ | Office | Otolaryngology | Ulysses Genao MD | | | 2019 | Visit | | [address] | | | | | | [address] [place] | | | | | | [place] [address] | | | | | | [phone] | | | | | | | | +--------+---------+ + + + | 02/15/ | Office | Internal Medicine | Alanis, | | | 2019 | Visit | | MD Petrona | | | | | | [address] [place] | | | | | | [place] [address] | | | | | | [phone] | | | | | | | | +--------+---------+ + + + documented as of this encounter Visit Diagnoses Not on filedocumented in this encounter"
--- OUTSIDE RECORDS SUMMARY | ~2019-12-13 | XMS | Encounter Summary ---
Demographics + + + | Address | [address] | | | [place] [address] | + + + | Home Phone [...] Providers + +------+ + | Care Awning Frame Maker Name | Role | Phone | [...] [address] | | | | | [place], [place] | [place], [place] | | | | | [address] | [address] | | | | | [phone] | [phone] | | | | | | | [...]
--- OUTSIDE RECORDS SUMMARY | ~2019-12-13 | XMS | Encounter Summary ---
Demographics + + + | Address | [address] | | | [place] [address] | + + + | Home Phone [...] Providers + +------+ + | Care Wet Finisher Wool Name | Role | Phone | + [...] | Diagnoses | Rileyacle, | Fili Pt Hot Blast Worker | | | | Therapy | Muscle | NIHARIKA Jean | [address] | | | | | strain Neck | [address] | | | | | pain | [address] | Mailcode: | | | | | Fibromyalgia | [place], [place] | [facility] | | | | | Radicular | [address] | for Health | | | | | pain in left | | and Healing, | | | | | arm | | Building 1 | | | | | Procedures | | [place], [place] | | | | | PHYSICAL | | [address] | | | | | THERAPY | | Phone: | | | | | REFERRAL | | [phone] | +--------+--------+ + + + + Reason for Visit + + + | Reason | Comments | + + + | LBP - Low back pain | | + + + Encounter Details +--------+---------+ + + + | Date | Type | Department | Care Team | Description | +--------+---------+ + + + | 08/22/ | Office | VAWANG Basilio | Delfina Lambert, | Muscle Strain hips; | | 2008 | Visit | Pain Center at | ANP | Fibromyalgia; Neck | | | | [facility] | | Pain; Radicular Pain | | | | [address] | | in Left Arm; | | | | Mailcode: CH15P | | Dizziness; Black | | | | [facility] for [facility] | | Out; Falling | | | | and Healing, | |Falling | | | | Building | | | | | | Floor [place], [place] | | | | | | [address] | | | | | | [phone] | | | +--------+---------+ + + + [...] visit Schedule MRI of the neck at [facility] Use your TENS for the muscle pain Schedule follow up after the MRI to review results documented in this encounter Progress Notes Delfina Lambert ANP - 08/22/2008 10:22 AM PDTFormatting of this note might be different fr om the original. 08/22/2008 Belinda Meehan is a 48 [address] [facility] Comprehensive Pain Center Return Visit [...] drawing has be completed, which I reviewed. [facility] Brief Pain Inventory: (ten= worst possible pain [...] appointment to see lumbar spine surgery in [place] on . Psychiatric History: depressed mood, sleep [...] 278 01/18 Paniculectomy Hx lumbar fusion 05/2008 L5-S0xprnhp with bone spur removals Family History Problem [...] to get the MRI results befor planning critical access hospital care. Belinda was compliant with all [...] COMPRE[facility] Mail code CH 4P [facility] and [address] [address] Ailyn Foster Malissa - 03/2009 [...]
--- OUTSIDE RECORDS SUMMARY | ~2019-12-13 | XMS | Encounter Summary ---
Demographics + + + | Address | [address] | | | [place] [address] | + + + | Home Phone [...] Providers + +------+ + | Care Meat Process Worker Name | Role | Phone | [...] 2006 | Visit | Rheumatology [address] | LOZENGE MAKER HELPER | Fibromyalgia; | | | | [address] | | Fibromyalgia | | | | Mailcode: OPC5 | | | | | | Outpatient Clinic | | | | | | [facility], | | | | | | [place] [address] | | | | | | [phone] | | | +--------+---------+ + + + [...] 4-5/5 for all major deltoids, biceps, triceps. Gumming Machine Operator slightly weak. Tone is normal. There is [...] + + +--------+ + + | [place] INJECT TRIGGER | Procedures | Routin | [...]
--- OUTSIDE RECORDS SUMMARY | ~2019-12-13 | XMS | Encounter Summary ---
Demographics + + + | Address | [address] | | | [place] [address] | + + + | Home Phone [...] Providers + +------+ + | Care Studio Technician Name | Role | Phone | [...] + + | 08/18/ | Office | [facility] | Alanis, | Preop examination | | 2018 | Visit | MEDICINE [address] | MD Petrona | (Primary Dx); | | | | [address] [place], | [address] [facility] | Trigger finger of | | | | [place] [address] | [place] [address] | all digits of left | | | | [phone] | [phone] | hand | | | | | [...] glover with Dr. Dr Jefe Cruz in [place], [place]. . She had surgery before and [...] Had a basal metabolic panel yesterday at [facility] in [place] which came back okay. REVIEW OF SYSTEMS [...] (See Comments) Confused and questionable for seizures Hspicggwkb-Cnjg-Gdlrqimj Cephalexin Hives Duloxetine Migraines and nausea Ketorolac Hives Morphine Swelling Ropinirole Hcl Hives Tramadol Hcl Nausea Only Qtvspzmcpk-Xlwi-Vbjrjgfx Hives and Rash Ciprofloxacin Hives and Rash [...] Note: Parts of this documentwere created using [employer] speech recognition software. As a r esult, [...] [place] | | | | | | [place] [address] | | | | | | [phone] | | | | | | | | +--------+---------+ + + + | 12/20/ | Office | Otolaryngology | Ulysses Genao MD | | | 2019 | Visit | | [address] | | | | | | [address] [place] | | | | | | [place] [address] | | | | | | [phone] | | | | | | | | +--------+---------+ + + + | 02/15/ | Office | Internal Medicine | Alanis, | | | 2019 | Visit | | MD Petrona | | | | | | [address] [place] | | | | | | [place] [address] | | | | | | [phone] | | | | | | | [...]
--- OUTSIDE RECORDS SUMMARY | ~2019-12-13 | XMS | Encounter Summary ---
Demographics + + + | Address | [address] | | | [place] [address] | + + + | Home Phone [...] Providers + +------+ + | Care Pin Inserter Regulator Name | Role | Phone | + [...] | | | | | Encounter | [place], [place] | [place] | | | | | for | [address] | [address] | | | | | long-term | | Phone: | | | | | (current) | | [phone] | | | | | use of other | | Fax: | | | | | medications | | [phone] | | | | | LBP (low [...] | Diagnoses | Paco, | Fili Pt Frit Mixer And Burner | | | | Therapy | Myalgia and | Rosi T, ANP | [address] | | | | | myositis, | [address] | | | | | unspecified | [address] | Mailcode: | | | | | LBP (low | [place], [place] | [facility] | | | | | back pain) | [address] | for Health | | | | | Chronic | | and Healing, | | | | | shoulder | | [address] | | | | | pain Muscle | | [place], [place] | | | | | strain | | [address] | | | | | Radicular | | Phone: | | | | | pain in left | | [phone] | | | | | arm Neck [...] | | pain | [place], [place] | [place], [place] | | | | | | [address] | [address] | | | | | | Phone: | | | | | | | [phone] | | | | | | | Fax: | | | | | | | [phone] | | +--------+--------+ + + + + Encounter Details +--------+---------+ + + + | Date | Type | Department | Care Team | Description | +--------+---------+ + + + | 04/05/ | Office | [facility] Comprehensive | Rosi Antonio, | LBP (low back pain) | | 2012 | Visit | Pain Center at | ANP | (Primary Dx); | | | | [facility] | | Fibromyalgia | | | | [address] | | syndrome 729.1; | | | | Mailcode: CH15P | | Encounter for | | | | [place] [facility] | | Long-Term (Current) | | | | and Healing, | | Use of Opioids; | | | | | | Chronic Bilateral | | | | Floor [place], [place] | | Shoulder Pain; | | | | [address] | | Muscle Strain hips; | | | | [phone] | | Radicular pain in | | [...] you have questions or concerns. NIHARIKA BERRIOS [facility]ENTER [address] Mail Code: [place] [address] documented in this encounter Progress Notes Rosi Antonio ANP - 04/05/2013 9:28 AM PDTFormatting of this note might be different fro m the original. [facility] Office Visit 04/05/2013 Belinda Meehan; ; : 1960 Ms. Meehan was referred for pain management consultation by Taqueria Raman NP [address] [place] [address] Chief Complaint Patient presents with New patient [...] to taper off gabapentin 2. Order for [facility] neurology Dr. Taniya Guerrero if falls [...] Dr. 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 As part of today's visit the [facility] new patient questionnaire was [...] expect from your visits to the [facility] ? Don't know BP [...] Overview Note: Surgery 05/15/08 Dr Ricky Garnett [facility] to get operative reports Osteopenia [...] before her lumbar surgeries and recently in [place]. She has short-term relief from the se [...] is my privilege to be part of [facility] health care team. Pl ease free to contact me at any time if you have questions or concerns. I spent 30 minutes with the patient of which more than 50% was spent hspeg-re-wmox in [facility] pain questionnaire, medical record, consultation, discussion, addressing questions and counselling/education. NIHARIKA BERRIOS [facility] Callum Kovacs Mail Code: [place] [id number] mith, Maris Lopez MA - 04/05/2013 8:25 [...]
--- OUTSIDE RECORDS SUMMARY | ~2019-12-13 | XMS | Encounter Summary ---
Demographics + + + | Address | [address] | | | [place] [address] | + + + | Home Phone [...] Providers + +------+ + | Care Rail Detector Car Operator Name | Role | Phone [...] [address] | | | | | | [place], [place] | | | | | | [address] | | | | | | [phone] | | | +--------+--------+ + + + [...]
--- OUTSIDE RECORDS SUMMARY | ~2019-12-13 | XMS | Encounter Summary ---
Demographics + + + | Address | [address] | | | [place] [address] | + + + | Home Phone [...] Refill Request | | 2007 | | [place] [address] | [address] | (Sucralfate) | | | | [place] Mailcode: CH4S | [facility] | | | | | [facility] | [place], [place] | | | | | and Healing, | [address] | | | | | [facility] | [phone] | | | | | Floor [place], [place] | | | | | | [address] | | | | | | [phone] | | | +--------+--------+ + + + [...]
--- OUTSIDE RECORDS SUMMARY | ~2019-12-13 | XMS | Encounter Summary ---
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 female [facility] Comprehensive Pain Center [...] PT for left knee with Dr. Pedro HSEEHAN. 3. Follow up [facility] after [...] with any concerns or questions. DELFINA MOLINA [facility] COM[facility] C[facility] Mail code CH 4P [facility] and [address] [address] Tasha Can - 03/31/2007 9:15 [...]
--- OUTSIDE RECORDS SUMMARY | ~2019-12-13 | XMS | Encounter Summary ---
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 | | | | [place] [address] | [place] [address] | prescription opiate | | | | [phone] | [phone] | use; Seasonal | | | | [...] HOPKINS on: 02/15/2019 16:19 Modules accepted: Orders Nicole barrera in this encounter Plan of Treatment +--------+---------+ + + + | Date | Type | Specialty | Care Team | Description | +--------+---------+ + + + | 12/20/ | Office | Audiology | Elisabet Munson MS | | | 2019 | Visit | | [facility] [address] | | | | | | [place] | | | | | | [place] [address] | | | | | | [phone] | | | | | | | | +--------+---------+ + + + | 12/20/ | Office | Otolaryngology | Ulysses Genao MD | | | 2019 | Visit | | [address] | | | | | | [address] [place] | | | | | | [place] [address] | | | | | | [phone] | | | | | | | | +--------+---------+ + + + | 02/15/ | Office | Internal Medicine | Alanis, | | | 2019 | Visit | | MD John | | | | | | [address] [place] | | | | | | [place] [address] | | | | | | [phone] | | | | | | | [...] mL/min/1.73m2 | Yudy NATHAN | | | ALGERIAN | RATE,ESTIMATED | | MEDICAL | | | | mL/min/1.51o5Ntck than | | CENTER - | | [...] | 9.8 | 8.7 - 10.4 | [facility] | | | | | mg/dL | [...] [address] | SENTHIL [place] | [phone] | | [facility] | | [address] | | | - LABORATORY | | [...] | [address] 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
--- OUTSIDE RECORDS SUMMARY | ~2019-12-13 | XMS | Encounter Summary ---
Demographics + + + | Address | [address] | | | [place] [address] | + + + | Home Phone [...] Providers + +------+ + | Care Mortgage Closing Clerk Name | Role | Phone | + +------+ + | Pedrito Gutierrez MD | PCP | | + +------+ + Encounter Details +--------+ + + + + | Date | Type | Department | Care Team | Description | +--------+ + + + + | 01/11/ | Telephone | Digestive Health | Chris Padgett, | | | 2009 | | [place] [address] | [address] [facility] | | | | | [place] Mailcode: CH4S | [facility] | | | | | Center for Health | [place], [place] | | | | | and Healing, | [address] | | | | | Building | [phone] | | | | | Floor [employer], [place] | | | | | | [address] | | | | | | [phone] | | | +--------+ + + + [...]
--- OUTSIDE RECORDS SUMMARY | ~2019-12-13 | XMS | Encounter Summary ---
Demographics + + + | Address | [address] | | | [place] [address] | + + + | Home Phone [...] Providers + +------+ + | Care Lens Gauger Name | Role | Phone | [...] 07/28/ | Telephone | [facility] | Chrsi Padgett, | Discussion | | 2007 | | Center [address] | [address] | | | | | [place] Mailcode: CH4S | Naeem Mcare | | | | | [facility] | [place], [place] | | | | | and Healing, | [address] | | | | | [facility] | [phone] | | | | | Floor [place], [place] | | | | | | [address] | | | | | | [phone] | | | +--------+ + + + [...]
--- OUTSIDE RECORDS SUMMARY | ~2019-12-13 | XMS | Encounter Summary ---
Demographics + + + | Address | [address] | | | [place] [address] | + + + | Home Phone [...] Team Providers + +------+ + | Care Linseed Oil Temperer Name | Role | Phone | + [...] [address] | | | | | | [place], [place] | | | | | | [address] | | | | | | [phone] | | | +--------+ + + + [...]
--- OUTSIDE RECORDS SUMMARY | ~2019-12-13 | XMS | Encounter Summary ---
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 female [facility] Comprehensive Pain [...] Simons. We reviewed materials risk notice and [facility] opioid agreement. A ll [...] management and reduce opioid need. DELFINA MOLINA [facility] Mail code CH 4P [facility] and [facility] [address] [facility] [address] Ailyn Foster 12/22/19 12:51 PM PDTCMA [...] | + + | Opioid dependence, continuous ([facility]) Opioid type dependence, continuous | + [...]
--- OUTSIDE RECORDS SUMMARY | ~2019-12-13 | XMS | Encounter Summary ---
Demographics + + + | Address | [address] | | | [place] [address] | + + + | Home Phone [...] Team Providers + +------+ + | Care Transfill Technician Name | Role | Phone | [...]
--- OUTSIDE RECORDS SUMMARY | ~2019-12-13 | XMS | Encounter Summary ---
Demographics + + + | Address | [address] | | | [place] [address] | + + + | Home Phone [...] Team Providers + +------+ + | Care Propulsion Systems Engineer Name | Role | Phone [...] Medication requested | | 2007 | | [place] [address] | [address] | (sucralfate | | | | Ave Mailcode: CH4S | [facility] | (CARAFATE) 1 gram | | | | [facility] | [place], [place] | Oral Tablet) | | | | and Healing, | [address] | | | | | [facility] | [phone] | | | | | [place], [place] | | | | | | [address] | | | | | | [phone] | | | +--------+ + + + [...]
--- OUTSIDE RECORDS SUMMARY | ~2019-12-13 | XMS | Encounter Summary ---
Demographics + + + | Address | [address] | | | [place] [address] | + + + | Home Phone [...] | | MD [address] | [place] [address] | | | | | | [address] | Phone: | | | | | | [place], | [phone] | | | | | | [place] | Fax: | | | | | | [address] | [phone] | | | | | | Phone: | | | | | | | [phone] | | | | | | | Fax: | | | | | | | [phone] | | +--------+ + + + + + Encounter Details +--------+---------+ + + + | Date | Type | Department | Care Team | Description | +--------+---------+ + + + | 10/18/ | Office | [facility] | Emmy-Kamlesh, | Obesity (BMI | | 2018 | Visit | GASTROENTEROLOGY | MD [place]ron[place] | 30.0-34.9) (Primary | | | | [address] [place] | [address] [place] | Dx); Nausea; Dumping | | | | [address] [place], [place] | [place] [address]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; 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); | | | | [phone] | | Gastroesophageal | | | | | Luther Brito MD | reflux disease, | | | | | [address] | esophagitis presence | | | | | [place], [place] | not specified | | | | | [address] | | | | | | [phone] | | | | | | | [...] Osteoporosis Palpitations Peripheral neuropathy Rheumatoid arthritis ([facility]) Right arm pain 01/04/2015 RLS (restless legs syndrome) S/P lumbar fusion 01/04/2015 Scoliosis Sleep apnea Spondylosis with myelopathy, lumbar region Stroke ([facility]) Syncope Tremor Type II or unspecified type diabetes mellitus with other specified manifestations, not stated as uncontrolled 05/04/2017 Vitamin D deficiency Past Surgical History: Past Surgical History: Procedure Laterality Date ADENOIDECTOMY APPENDECTOMY BREAST LUMPECTOMY Left 2001 CARPAL TUNNEL RELEASE 2002 SECTION CHOLECYSTECTOMY 2004 COLONOSCOPY N/A 12/18/2017 Procedure: COLONOSCOPY; Surgeon: Luther Brito MD; Location: [facility] MEDICAL PROCEDURE UNIT DILATION AND CURETTAGE OF UTERUS ELBOW SURGERY FINGER TRIGGER RELEASE 2002 FINGER TRIGGER RELEASE 2009 GASTRIC BYPASS SURGERY 2004 HYSTERECTOMY 05/14/1980 JOINT REPLACEMENT Bilateral 2007 2008 KNEE ARTHROSCOPY 2005 LAPAROSCOPY 01/27/2015 LAPAROTOMY 2008 ROTATOR CUFF REPAIR 2005 SPINE SURGERY TONSILLECTOMY 1964 UPPER GASTROINTESTINAL ENDOSCOPY N/A 12/18/2017 Procedure: EGD; Surgeon: Luther Brito MD; Location: [facility] MEDICAL PROCEDURE UNIT Family History: Family [...] Hives,Itching,Rash Butalbital Not Noted Ropinirole Not Noted Dlubsacqly-Kytt-Eotmevdg Hives,Rash Cephalexin Hives Ciprofloxacin Hives,Rash Clarithromycin Hives,Rash [...] liz ls. I recommend referral to a plumber for further assistance with dumping syndrome. I [...] | | | | | [place] [address] | | | | | | [phone] | | | | | | | | +--------+---------+ + + + | 12/20/ | Office | Otolaryngology | Ulysses Genao MD | | | 2019 | Visit | | [address] | | | | | | [address] [place] | | | | | | [place] [address] | | | | | | [phone] | | | | | | | | +--------+---------+ + + + | 02/15/ | Office | Internal Medicine | Alanis, | | | 2019 | Visit | | MD Petrona | | | | | | [address] [place] | | | | | | [place] [address] | | | | | | [phone] | | | | | | | [...]
--- OUTSIDE RECORDS SUMMARY | ~2019-12-13 | XMS | Encounter Summary ---
Demographics + + + | Address | [address] | | | [place] [address] | + + + | Home Phone [...] Providers + +------+ + | Care Correctional Officer Captain Name | Role | Phone | [...] [address] | | | | | [place], [place] | [place] | | | | | [address] | [address] | | | | | [phone] | [phone] | | | | | | | [...] + + + | [facility] | [address] | [place] [address] | | | PATHOLOGY | [address] | | | + + + + + | [facility] | [address] | [place] [address] | | | PATHOLOGY | [address] [...] DEPARTMENT OF | [address] | [place] [address] | | | PATHOLOGY | [address] | | | + + + + + | [place] DEPARTMENT OF | [address] | [place] [address] | | | PATHOLOGY | [...] [facility] DEPARTMENT OF | [address] [facility] | [place] [address] | | | PATHOLOGY | [address] | | | + + + + + | [facility] DEPARTMENT OF | [address] [facility] | [place] [address] | | | PATHOLOGY | [address] [...] + + + | [facility] | [address] [place] [address] | [place] [address] | | | PATHOLOGY | [address] | | | + + + + + | [facility] DEPARTMENT OF | [facility] | [place] [address] | | | PATHOLOGY | [address] | | | + + + + + documented in this encounter Visit Diagnoses Not on filedocumented in this encounter"
--- OUTSIDE RECORDS SUMMARY | ~2019-12-13 | XMS | Encounter Summary ---
Demographics + + + | Address | [address] | | | [place] [address] | + + + | Home Phone [...] Team Providers + +------+ + | Care Scenic Artist Name | Role | Phone | [...] [id number] | | | | | | [place], [place] | | | | | | [address] | | | | | | [phone] | | | +--------+ + + + [...] | | | | | [facility] | | | | | | Laboratories. | | | | + + + + + + + + | Specimen | + + | | + + + + + + + | Performing | Address | City/State/Zipcode | Phone Number | | Organization | | | | + + + + + | [facility] | [address] | [place] [address] | | | LABORATORY | | | | + + + + + documented in this encounter Visit Diagnoses Not on filedocumented in this encounter"
--- OUTSIDE RECORDS SUMMARY | ~2019-12-13 | XMS | Encounter Summary ---
Demographics + + + | Address | [address] | | | [place] [address] | + + + | Home Phone [...] Team Providers + +------+ + | Care Paginator Name | Role | Phone | + [...] | Diagnoses | Rileyacle, | Fili Pt Animal Herder | | | | Therapy | Muscle | NIHARIKA Jean | Ch[address] | | | | | strain Neck | [address] | | | | | pain | [address] | Mailcode: | | | | | Fibromyalgia | [place], [place] | [facility] | | | | | Radicular | [address] | for Health | | | | | pain in left | | and Healing, | | | | | arm | | Building 1 | | | | | Procedures | | [place], [place] | | | | | PHYSICAL | | [address] | | | | | THERAPY | | Phone: | | | | | REFERRAL | | [phone] | +--------+--------+ + + + + Reason for Visit + + + | Reason | Comments | + + + | LBP - Low back pain | | + + + Encounter Details +--------+---------+ + + + | Date | Type | Department | Care Team | Description | +--------+---------+ + + + | 08/22/ | Office | TXWANG Basilio | Delfina Lambert, | Muscle Strain hips; | | 2008 | Visit | Pain Center at | ANP | Fibromyalgia; Neck | | | | [facility] | | Pain; Radicular Pain | | | | [address] | | in Left Arm; | | | | Mailcode: CH15P | | Dizziness; Black | | | | [facility] | | Out; Falling | | | | and Healing, | |Falling | | | | Building | | | | | | Floor [place], [place] | | | | | | [address] | | | | | | [phone] | | | +--------+---------+ + + + [...] visit Schedule MRI of the neck at [facility] Use your TENS for the muscle pain Schedule follow up after the MRI to review results documented in this encounter Progress Notes Delfina Lambert ANP - 08/22/2008 10:22 AM PDTFormatting of this note might be different fr om the original. 08/22/2008 Belinda Meehan is a 48 y.o. female [facility] Comprehensive Pain [...] drawing has be completed, which I reviewed. [facility] Brief Pain Inventory: (ten= worst possible [...] appointment to see lumbar spine surgery in [place] on . Psychiatric History: depressed mood, sleep [...] 278 01/18 Paniculectomy Hx lumbar fusion 05/2008 [id number] with bone spur removals Family History Problem [...] to get the MRI results befor planning [facility] care. Belinda was compliant with all aspects [...] COMPRE[facility] Mail code CH 4P [facility] and [address] [address] Ailyn Foster Malissa - 03/2009 [...] | | | | | | Dr. SCHOREDER | | | | | | CHRISTIAN [...]
--- OUTSIDE RECORDS SUMMARY | ~2019-12-13 | XMS | Encounter Summary ---
[...] Providers + +------+ + | Care Head Field Hockey Coach Name | Role | Phone | + +------+ + | Petrona Thapa | PCP | | | MD | | | + +------+ + Reason for Visit + +--------+ + | Reason | Onset | Comments | | | Date | | + +--------+ + | Medication Refill | 10/11/ | | | | 2019 | | + +--------+ + Encounter Details +--------+--------+ + + + | Date | Type | Department | Care Team | Description | +--------+--------+ + + + | 10/11/ | Refill | [facility] | Alanis, | Medication Refill | | 2019 | | MEDICINE [address] | MD Petrona | | | | | [place], | [address] | | | | | [place] [address] | [place] [address] | | | | | [phone] | [phone] | | | | | | | [...] | | | | | [place] [address] | | | | | | [phone] | | | | | | | | +--------+---------+ + + + | 12/20/ | Office | Otolaryngology | Ulysses Genao MD | | | 2019 | Visit | | [address] | | | | | | [place] | | | | | | [place] [address] | | | | | | [phone] | | | | | | | | +--------+---------+ + + + | 02/15/ | Office | Internal Medicine | Alanis, | | | 2019 | Visit | | MD Petrona | | | | | | [address] [place] | | | | | | [place] [address] | | | | | | [phone] | | | | | | | | +--------+---------+ + + + documented as of this encounter Visit Diagnoses Not on filedocumented in this encounter"
--- OUTSIDE RECORDS SUMMARY | ~2019-12-13 | XMS | Encounter Summary ---
Demographics + + + | Address | [address] | | | [place] [address] | + + + | Home Phone [...] Team Providers + +------+ + | Care Western Tack Assembly Line Worker Name | Role | Phone [...] | | | [facility] | [place], [place] | | | | | [address] | [address] | | | | | [address] | [phone] | | | | | Physician's | | | | | | Pavilion, 1st floor | | | | | | [place], [place] | | | | | | [address] | | | | | | [phone] | | | +--------+--------+ + + + [...]
--- OUTSIDE RECORDS SUMMARY | ~2019-12-13 | XMS | Encounter Summary ---
Demographics + + + | Address | [address] | | | [place] [address] | + + + | Home Phone [...] Team Providers + +------+ + | Care Interim Controller Name | Role | Phone | [...] + + | 03/17/ | Telephone | [facility] | Alanis, | TCM - Hosp FU | | 2017 | | MEDICINE [address] | MD Petrona | | | | | [place], | [address] [facility] | | | | | [place] [address] | [place] [address] | | | | | [phone] | [phone] | | | | | | | [...] 03/23/2018 2:24 PM PDTI have received a [employer] e call from Taniya at Dr. Paiz's office and they are working on getting home health started from nursing evaluation recommendation today. I have attempted follow up call to pt with vo [employer] message. eleph one Encounter - Erica Emerson [...] Dr. Mina's office and contacted them at [phone] and spoke with nurse Monahan to share concerns for Physical Therapy request and a H ome Health plan. I have provided my phone # for follow up [phone]. elephone Encounter - Erica Emerson RN - [...] to report we have received records from [facility] and I have reached out to rn case management Devin to report dressing/ w ound care concerns that he reports working with Shalonda at [facility] and she has had an ev aluation yesterday. She receives 20 hours care support per month and they are also working w [facility] volunteer service to help with patient [...] call center-Patient reports had just discharged from [facility] on Mar. following a Bowel obstr uction surgery and has open wound area (which will require some packing) with efren still intact. She reports not enough help at home to support her current state of weakness and she had contacted the [facility] worker she reports Devin [phone] as her rn case management . She gives permission for release of records to discuss this and reports she will notify [facility] so we can obtain information to assist in follow up care. I have spoke with Thais cortes (nurse) with for coordination of care @[phone] (provided by Patient ). She h as [...] [place] | | | | | | [place] [address] | | | | | | [phone] | | | | | | | | +--------+---------+ + + + | 12/20/ | Office | Otolaryngology | Ulysses Genao MD | | | 2019 | Visit | | [address] | | | | | | [address] [place] | | | | | | [place] [address] | | | | | | [phone] | | | | | | | | +--------+---------+ + + + | 02/15/ | Office | Internal Medicine | Alanis, | | | 2019 | Visit | | MD Petrona | | | | | | [address] [place] | | | | | | [place] [address] | | | | | | [phone] | | | | | | | | +--------+---------+ + + + documented as of this encounter Visit Diagnoses Not on filedocumented in this encounter"
--- OUTSIDE RECORDS SUMMARY | ~2019-12-13 | XMS | Encounter Summary ---
Demographics + + + | Address | [address] | | | [place] [address] [...] +------+ + | Care Food And Beverage Coordinator Name | Role | Phone | [...] of this encounter Progress Notes Interface, Store Merchandiser In - 11/19/2005 3:09 AM PDT [place] [facility] [address] [place] [address] or May 09, 2003 Pedrito Gutierrez M.D. [address] [place] [address] RE: BELINDA MEEHAN MR #: [id number] Dear Dr. Gutierrez: I had the pleasure [...] this testing done through your clinic in [place]. I will plan to see her again [...] her condition. Sincerely, Issac Meeks M.D. manager immunology, Division of Endocrinology, Diabetes, and Clinical Juvenile Correctional Officer, Metabolic Disorders Clinic PBD / HS [id number] / [id number] / [id number] / Tdocumented in this encounter Plan of Treatment Not on filedocumented as of this encounter Visit Diagnoses Not on filedocumented in this encounter"
--- OUTSIDE RECORDS SUMMARY | ~2019-12-13 | XMS | Encounter Summary ---
Demographics + + + | Address | [address] | | | [place] [address] | + + + | Home Phone [...] + +------+ + | Care Child Care Sitter Name | Role | Phone | [...] + + | 07/24/ | Office | [facility] Comprehensive | Delfina Lambert, | Chronic Bilateral | | 2008 | Visit | Pain Center at | ANP | Shoulder Pain | | | | [facility] | | (Primary Dx); Spinal | | | | [address] | | Fusion Lumbar spine | | | | Mailcode: CH15P | | ; LBP (Low Back | | | | [facility] | | Pain); Osteopenia; | | | | and Healing, | | Fibromyalgia | | | | Building | | syndrome 729.1; | | | | Floor [place], [place] | | Major Depressive | | | | [address] | | Disorder, Recurrent | | | | [phone] | | Episode, Moderate | | | | | | [facility]); Adjustment | | | [...] Belinda Meehan is a 48 y.o. female [facility] Comprehensive Pain Center Return Visit Chief Complaint: [...] reviewed. [facility] Brief Pain Inventory: (ten= worst possible [...] 300 mg) by oral route once daily pdbfqfzkrt-ilcnmlsnmzbwb-phvwkxax (FIORICET) 50-325-40 mg Oral Tablet take 2 [...] 278 01/18 Paniculectomy Hx lumbar fusion 05/2008 [id number] with bone spur removals Family History Problem [...] plain x rays of bilateral shoulders, today [facility] building third floor, I reviewed the [...] PAIN CENTER Mail code CH 4P [facility] [address] [place] [address] Ailyn Bello - 02/2009 3:13 PM [...] + +---------+ + + | [facility] DEPARTMENT OF | | | [...]
--- OUTSIDE RECORDS SUMMARY | ~2019-12-13 | XMS | Encounter Summary ---
Demographics + + + | Address | [address] | | | [place] [address] | + + + | Home Phone [...] Team Providers + +------+ + | Care Rda Name | Role | Phone | + [...] of this encounter Progress Notes Interface, Chief Technologist In - 08/19/2005 2:05 AM PST [id number] [facility] Date: 07/24/2005 Clinic: Hematology/Oncology [...] or malignancies. 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 She still smokes 1/2 [...] are appreciated. No petechiae. Laboratory: Labs from [place]: Homocysteine 8.5 and SANIA negative. CBC: White [...] laboratory studies that have been obtained from [place], it does not appear that she has [...] E supplementation. Karen Gramza, Joanna Sellers M.D. wood milling machine hand / HS [id number] / [id number] / [id number] / [id number] cc: Pedrito Gutierrez M.D. [facility] [address] [place] [address] FAX: [phone] Electronically signed by Lukasz Sellers 08-18-2005 01:27:53 PM documented i n this encounter Plan of Treatment Not on filedocumented as of this encounter Visit Diagnoses Not on filedocumented in this encounter"
--- OUTSIDE RECORDS SUMMARY | ~2019-12-13 | XMS | Encounter Summary ---
Demographics + + + | Address | [address] | | | [place] [address] | + + + | Home Phone [...] Team Providers + +------+ + | Care Plumber Gasfitter Name | Role | Phone | [...] Refill Request | | 2008 | | [place] [address] | [address] | (Sucralfate) | | | | Bethanie Mailcode: CH4S | [facility] | | | | | [facility] | [place], [place] | | | | | and [place], | [address] | | | | | [facility] | [phone] | | | | | Floor [place], [place] | | | | | | [address] | | | | | | [phone] | | | +--------+--------+ + + + [...]
--- OUTSIDE RECORDS SUMMARY | ~2019-12-13 | XMS | Encounter Summary ---
Demographics + + + | Address | [address] | | | [place] [address] | + + + | Home Phone [...] Providers + +------+ + | Care Tap And Die Maker Technician Name | Role | Phone | [...] | | unspecified | [place], [place] | [address] | | | | | laterality | [address] | Phone: | | | | | | Phone: | [phone] | | | | | | [phone] | Fax: | | | | | | Fax: | [phone] | | | | | | [phone] | | +--------+ + + + + [...] [place] | unspecified | | | | [place], [place] | [place] [address] | laterality (Primary | | | | [address] | [phone] | Dx) | | | | [phone] | | | +--------+ + + + [...] | | | | | [place] [address] | | | | | | [phone] | | | | | | | | +--------+---------+ + + + | 12/20/ | Office | Otolaryngology | Ulysses Genao MD | | | 2019 | Visit | | [address] | | | | | | [address] [place] | | | | | | [place] [address] | | | | | | [phone] | | | | | | | | +--------+---------+ + + + | 02/15/ | Office | Internal Medicine | Alanis, | | | 2019 | Visit | | MD [place] | | | | | | [address] [place] | | | | | | [place] [address] | | | | | | [phone] | | | | | | | | +--------+---------+ + + + + + +--------+ + + | Name | Type | Priori | Associated Diagnoses | Order Schedule | | | | ty | | | + + +--------+ + + | * TAHIR NDIAYE | Outpatient | Routin | Benign [...]
--- OUTSIDE RECORDS SUMMARY | ~2019-12-13 | XMS | Encounter Summary ---
Demographics + + + | Address | [address] | | | [place] [address] | + + + | Home Phone [...] Providers + +------+ + | Care Tube Washer Name | Role | Phone | [...] as of this encounter Progress Notes Interface, Classification Analyst In - 03/29/2005 5:05 AM PDT [id number] [facility] Date: 03/20/2005 Clinic: Rheumatology [...] and sense of disability is 5/10. Her shelter case manager needs a note from me [...] for the diagnosis of fibromyalgia by the [employer]. She also has the [...] to treat restless legs. There is a apparel patternmaker in [place] who is using large doses to reduce [...] 4 months. Caitlin Rivera M.S., F.N.P. / [id number] / [id number] / [id number] / [id number] cc: Pedrito Gutierrez M.D. [address] [place] [address] Belinda Meehan [address] [facility] [place] [address] Electronically signed by Caitlin Rivera 03-28-2005 01:43:14 PM documented i n this encounter Plan of Treatment Not on filedocumented as of this encounter Visit Diagnoses Not on filedocumented in this encounter"
--- OUTSIDE RECORDS SUMMARY | ~2019-12-13 | XMS | Encounter Summary ---
Demographics + + + | Address | [address] | | | [place] [address] | + + + | Home Phone [...] Providers + +------+ + | Care Client Relationship Executive Name | Role | Phone | [...] of this encounter Progress Notes Interface, Senior Microsoft Consultant In - 08/22/2005 2:06 AM PST [id number] [facility] Date: 07/31/2005 Clinic: Surgery [...] laparotomy. Plan: Emergency supply approved by [facility] in [place]. Quantity 35 was requested and will be filled. I will send a prescription for 40 additional oxycodone 5 mg. The patient will be seen in clinic in one week. Melisa Thorne / SHARIF [id number] / [id number] / [id number] / [id number] Electronically signed by Kenisha Melton 08-21-2005 07:00:10 PM documented corrie cortes this encounter Plan of Treatment Not on filedocumented as of this encounter Visit Diagnoses Not on filedocumented in this encounter"
--- OUTSIDE RECORDS SUMMARY | ~2019-12-13 | XMS | Encounter Summary ---
Demographics + + + | Address | [address] | | | [place] [address] | + + + | Home Phone [...] Providers + +------+ + | Care Fuel Yard Operator Name | Role | Phone | [...] [place] | | | | | [place] [address] | [place] [address] | | | | | [phone] | [phone] | | | | | | | [...] her last visit. She is still requesting [employer] to he lp her pain. I told her I would send a message. elephone Encounter - Tuna Snider - 03/05/2017 3:[address]/Caller: [facility] Contact Number: [phone] Provider/Nurse: Emmy Reason for Call: Taniya calling in regarding pt stated they have received numerous calls fro m patient to schedule an appointment with them. Taniya is stating they have not received refe rral and if it could be sent to their main fax [phone]. Also Taniya wanted to add that they will not prescribed any medications on the first visits. ESTEE. Last Appointment: 02/23/17 Next Appointment: 04/27/17 elephone Encounter - Alan Pardo - 03/05/2017 2:28 PM PDTPatient is calling stating that they also nee d a referral to the pain clinic as they won't schedule the patient till they have a referral . elephone Maggie Dasilva LPN - 03/04/2017 1:49 PM PDTReceived call [...] | | | | | [place] [address] | | | | | | [phone] | | | | | | | | +--------+---------+ + + + | 12/20/ | Office | Otolaryngology | Ulysses Genao MD | | | 2019 | Visit | | [address] | | | | | | [place] | | | | | | [place] [address] | | | | | | [phone] | | | | | | | | +--------+---------+ + + + | 02/15/ | Office | Internal Medicine | Alanis, | | | 2019 | Visit | | MD [place] | | | | | | [address] [place] | | | | | | [place] [address] | | | | | | [phone] | | | | | | | | +--------+---------+ + + + documented as of this encounter Visit Diagnoses Not on filedocumented in this encounter"
--- OUTSIDE RECORDS SUMMARY | ~2019-12-13 | XMS | Encounter Summary ---
Demographics + + + | Address | [address] | | | [place] [address] | + + + | Home Phone [...] Providers + +------+ + | Care Sales Support Technician Name | Role | Phone [...] Pavilion | | | | | | [place], [place] | | | | | | [address] | | | | | | [phone] | | | +--------+ + + + [...]
--- OUTSIDE RECORDS SUMMARY | ~2019-12-13 | XMS | Encounter Summary ---
[...] Team Providers + +------+ + | Care Slp Teacher Name | Role | Phone | [...] [address] | | | | | | [place], [place] | | | | | | [address] | | | | | | [phone] | | | +--------+ + + + [...]
--- OUTSIDE RECORDS SUMMARY | ~2019-12-13 | XMS | Encounter Summary ---
Demographics + + + | Address | [address] | | | [place] [address] | + + + | Home Phone [...] + +------+ + | Care Animal Husbandry Worker Name | Role | Phone | [...] 11/24/ | Office | Pain Center at [facility] | Lukasz Charles, | Major Depressive | | 2006 | Visit | [address] | PhD [address] | Disorder, Recurrent | | | | Mailcode: 15 | [place], [place] | Episode, Moderate | | | | [facility] | [address] | ([facility]); Spondylosis | | | | and Healing, | [phone] | with Myelopathy, | | | | Building | | Lumbar Region; Left | | | | Floor [place], [place] | | Knee Pain; | | | | [address] | | Adjustment Disorder | | | | [phone] | | with Anxiety; Other | | [...] some pl ans for more activity. Diagnosis: [place] I: 1. (296.32) Major depressive disorder, recurrent, moderate. 2. (309.24) Adjustment disorder with anxiety. 3. 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 [place] II: Deferred [place] III: abdominal pain, migraine headache, low back pain. [place] IV: low finances [place] V: GAF 55-60 Plan: Return in 2 weeks. Check mood, pacing, relaxation, activity, distraction. Continue cognit gerda/behavioral therapy. Set goals for summer activity. Total time spent with patient was approximately 45 minutes. LUKASZ CHARLES PHD [facility] [address] [place] [address] [facility], 4th [place] [address] documented in this encount er Plan of [...]
--- OUTSIDE RECORDS SUMMARY | ~2019-12-13 | XMS | Encounter Summary ---
[...] Providers + +------+ + | Care Aircraft Fuselage Framer Name | Role | Phone | [...] 12/04/ | Office | Pain Center at [facility] | Lukasz Charles, | Major Depressive | | 2006 | Visit | [address] | PhD [address] | Disorder, Recurrent | | | | Mailcode: 15 | [place], [place] | Episode, Moderate | | | | [facility] | [address] | ([facility]); Spondylosis | | | | and Healing, | [phone] | with Myelopathy, | | | | Building | | Lumbar Region; Left | | | | Floor [place], [place] | | Knee Pain; | | | | [address] | | Adjustment Disorder | | | | [phone] | | with Anxiety; Other | | [...] is optimistic about her knee surgery. Diagnosis: [place] I: 1. (296.32) Major depressive disorder, recurrent, moderate. 2. (309.24) Adjustment disorder with anxiety. 3. 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 [place] II: Deferred [place] III: abdominal pain, migraine headache, low back pain. [place] IV: low finances [place] V: GAF 55-60 Plan: Return in 3 months. Check mood, knee surgery, pacing, relaxation, activity, distraction. Continue cognitive/behavioral therapy. Discuss need for further sessions. Total time spent with patient was approximately 45 minutes. LUKASZ CHARLES PHD [facility] [address] [facility], 4th [place] [address] documented in this encount er Plan of [...] | | ([facility]) Spondylosis | | | | | | [...]
--- OUTSIDE RECORDS SUMMARY | ~2019-12-13 | XMS | Encounter Summary ---
Demographics + + + | Address | [address] | | | [place] [address] | + + + | Home Phone [...] Team Providers + +------+ + | Care Clinching Machine Operator Name | Role | Phone [...] Rd | | | | | | [place], [place] | | | | | | [address] | | | +--------+ + + + [...]
--- OUTSIDE RECORDS SUMMARY | ~2019-12-13 | XMS | Encounter Summary ---
Demographics + + + | Address | [address] | | | [place] [address] | + + + | Home Phone [...] Providers + +------+ + | Care Chemical Lab Supervisor Name | Role | Phone | [...] | | | | | [facility] | | | | | | [place] Floor | | | | | | [place], [place] | | | | | | [address] | | | | | | [phone] | | | +--------+ + + + [...]
--- OUTSIDE RECORDS SUMMARY | ~2019-12-13 | XMS | Encounter Summary ---
Demographics + + + | Address | [address] | | | [place] [address] | + + + | Home Phone [...] Providers + +------+ + | Care Home Aid Name | Role | Phone | [...] | | | | Mailcode: L223A | [place], [place] | | | | | [facility] | [address] | | | | | [address] [place], [place] | [phone] | | | | | [address] | | | | | | [phone] | | | +--------+ + + + [...]
--- OUTSIDE RECORDS SUMMARY | ~2019-12-13 | XMS | Encounter Summary ---
Demographics + + + | Address | [address] | | | [place] [address] [...] Providers + +------+ + | Care Voice Over Announcer Name | Role | Phone | + +------+ + | Petrona Thapa | PCP | | | MD | | | + +------+ + Reason for Visit +--------+--------+ + | Reason | Onset | Comments | | | Date | | +--------+--------+ + | Other | 07/27/ | | | | 2019 | | +--------+--------+ + Encounter Details +--------+ + + + + | Date | Type | Department | Care Team | Description | +--------+ + + + + | 07/27/ | Telephone | [facility] | Alanis, | Other | | 2019 | | MEDICINE [address] | MD Petrona | | | | | [place], | [address] [facility] | | | | | [place] [address] | [place] [address] | | | | | [phone] | [phone] | | | | | | | [...] Telephone Encounter - Maggie Montoya LPN - 07/27/2019 11:24 AM PSTPatient requesting MD to send rx to receive a incontinence supplies from a new [facility] called [employer]? Instructed tristen de to call the [facility] and have them fax our office the form to be completed. Fax # given elephone Encounter - Rebekah Williamson - 07/27/2019 11:01 AM PSTPatient would like to speak to the nurse. Patient wo uld not go in detail. Please advise 11: 02 AM PSTdocumented in this encounter Plan of [...] | | | | | [place] [address] | | | | | | [phone] | | | | | | | | +--------+---------+ + + + | 12/20/ | Office | Otolaryngology | Ulysses Genao MD | | | 2019 | Visit | | [address] | | | | | | [address] | | | | | | [place] [address] | | | | | | [phone] | | | | | | | | +--------+---------+ + + + | 02/15/ | Office | Internal Medicine | Alanis, | | | 2019 | Visit | | MD Petrona | | | | | | [address] | | | | | | [place] [address] | | | | | | [phone] | | | | | | | | +--------+---------+ + + + documented as of this encounter Visit Diagnoses Not on filedocumented in this encounter"
--- OUTSIDE RECORDS SUMMARY | ~2019-12-13 | XMS | Encounter Summary ---
Demographics + + + | Address | [address] | | | [place] [address] | + + + | Home Phone [...] Providers + +------+ + | Care Pediatric Speech Therapist Name | Role | Phone | [...] [address] | | | | | [facility] [place] [facility] | [place], [place] | | | | | [address] | [address] | | | | | [address] | [phone] | | | | | [facility] | | | | | | Physician's | | | | | | Pavilion [place], | | | | | | [place] [address] | | | | | | [phone] | | | +--------+--------+ + + + [...]
--- OUTSIDE RECORDS SUMMARY | ~2019-12-13 | XMS | Encounter Summary ---
Demographics + + + | Address | [address] | | | [place] [address] | + + + | Home Phone [...] Providers + +------+ + | Care Business Initiatives Manager Name | Role | Phone | [...] | | | | sciatica | [place] [address] | | | | | | S/P lumbar | Phone: | | | | | | fusion | [phone] | | | | | | Sacroiliac | Fax: | | | | | | inflammation | [phone] | | | | | | (HCC) [...] | | | | sciatica | [place] [address] | [address] | | | | | S/P lumbar | Phone: | Phone: | | | | | fusion | [phone] | [phone] | | | | | Sacroiliac | Fax: | Fax: | | | | | inflammation | [phone] | [phone] | | | | | ([facility]) | | | | | [...] | | sciatica | [address] | [address] Phone: | | | | | | [place], | [phone] | | | | | | [place] | Fax: | | | | | | [address] | [phone] | | | | | | Phone: | | | | | | | [phone] | | | | | | | Fax: | | | | | | | [phone] | | +--------+ + + + + + Encounter Details +--------+---------+ + + + | Date | Type | Department | Care Team | Description | +--------+---------+ + + + | 09/23/ | Office | [facility] | Lencho Rivas, | Sacroiliac | | 2019 | Visit | PHYSIATRY [address] | PA-C [address] | inflammation (HCC) | | | | [address] | [address] | (Primary Dx); Acute | | | | [place] [address] | [place] [address] | midline low back | | | | [address] | [phone] | pain with bilateral | | | | [phone] | | sciatica; S/P lumbar | | [...] 9:20 AM PDTReferral to michelle james ([facility]). Referral to massage therapy. Due to severity [...] press against a nerve. Date Last Reviewed: 08/13/201719997148-6007 [employer]. [address] [place] [address]. All righ ts reserved. This information is not intended as a substitute for professional medical care. Always follow your healthcare professional's instructions. documented in this encounter Progress Notes Lencho Rivas PA-C - 09/23/2018 9:20 AM PDTFormatting of this note might be different fro m the original. Lencho Rivas PA-C [address] [facility] [place], [place] [id number] FAX: CHIEF COMPLAINT: Chief Complaint Patient presents [...] COPD (chronic obstructive pulmonary disease) ([facility]) Depression Diarrhea Dumping syndrome Fall at home Fatigue fracture of vertebra Fibromyalgia Full dentures GERD (gastroesophageal reflux disease) Glaucoma Hyperparathyroidism ([facility]) Hypothyroidism IBS (irritable bowel syndrome) Idiopathic scoliosis Leg edema Low back pain Lumbar postlaminectomy syndrome Lumbar radiculopathy primarily right 01/04/2015 Meniere syndrome Migraine with aura Migraines Muscle cramping Muscle spasm Myalgia Nausea Nonalcoholic hepatosteatosis Obesity Opioid dependence ([facility]) Orthostatic hypotension OLIVER (obstructive sleep apnea) Osteoarthritis, generalized Osteopenia Osteoporosis Palpitations Peripheral neuropathy Rheumatoid arthritis ([facility]) Right arm pain 01/04/2015 RLS (restless legs syndrome) S/P lumbar fusion 01/04/2015 Scoliosis Sleep apnea Spondylosis with myelopathy, lumbar region Stroke ([facility]) Syncope Tremor Type II or [...] [facility] CURRENT MEDICATIONS: Current Outpatient [...] (See Comments) Confused and questionable for seizures Cdkwjxercx-Kikr-Lpruzdhe Hives and Rash Cephalexin Hives Ciprofloxacin Hives [...] has no apparent deficits with short or termite treater helper memory. Cranial nerves 2-12 appear grossly intact. [...] currently enrolled in a pain clinic in [place], [place]. 5) Patient will follow up with [...] | | | | | [place] [address] | | | | | | [phone] | | | | | | | | +--------+---------+ + + + | 12/20/ | Office | Otolaryngology | Ulysses Genao MD | | | 2019 | Visit | | [address] | | | | | | [address] | | | | | | [place] [address] | | | | | | [phone] | | | | | | | | +--------+---------+ + + + | 02/15/ | Office | Internal Medicine | Alanis, | | | 2019 | Visit | | MD Petrona | | | | | | [address] [place] [address] [address] | | | | | | [place] [address] | | | | | | [phone] | | | | | | | [...]
--- OUTSIDE RECORDS SUMMARY | ~2019-12-13 | XMS | Encounter Summary ---
Demographics + + + | Address | [address] | | | [place] [address] | + + + | Home Phone [...] Providers + +------+ + | Care Mixer Tender Name | Role | Phone | [...] as of this encounter Progress Notes Interface, Cryogenics Repairer In - 01/12/2005 10:09 AM PDT [id number] GEOVANNI [facility] Date: 12/11/2004 Clinic: Telephone [...] sent to Ms. Meehan' home address at [facility] [address] [address]. The address was confirmed with Ms. Meehan prior to sending. Ms. Meehan has a followup appointment in Dr. Padgett's clinic on December 19, 2004. Nathalia Richard R.N., B.S.N. Liliya Kirkpatrick. / [id number] / [id number] / [id number] / Electronically signed by Nuris Chapman 12-20-2004 05:05:06 PM docushazia i n this encounter Plan of Treatment Not on filedocumented as of this encounter Visit Diagnoses Not on filedocumented in this encounter"
--- OUTSIDE RECORDS SUMMARY | ~2019-12-13 | XMS | Encounter Summary ---
Demographics + + + | Address | [address] | | | [place] [address] | + + + | Home Phone [...] Team Providers + +------+ + | Care Aligning Inspector Name | Role | Phone | [...] [facility] | | | | | | [place] [facility] | | | | | | and Healing, | | | | | | | | | | | | Floor [place], [place] | | | | | | [address] | | | | | | [phone] | | | +--------+ + + + [...]
--- OUTSIDE RECORDS SUMMARY | ~2019-12-13 | XMS | Encounter Summary ---
Demographics + + + | Address | [address] | | | [place] [address] | + + + | Home Phone [...] Providers + +------+ + | Care Marketing Production Specialist Name | Role | Phone | + +------+ + | Petrona Thapa | PCP | | | MD | | | + +------+ + Reason for Visit + +--------+ + | Reason | Onset | Comments | | | Date | | + +--------+ + | Medication Refill | 09/21/ | | | | 2019 | | + +--------+ + Encounter Details +--------+--------+ + + + | Date | Type | Department | Care Team | Description | +--------+--------+ + + + | 09/21/ | Refill | [facility] | Alanis, | Medication Refill | | 2019 | | MEDICINE [address] | MD Petrona | | | | | [place], | [address] | | | | | [place] [address] | [place] [address] | | | | | [phone] | [phone] | | | | | | | [...] | | | | | [place] [address] | | | | | | [phone] | | | | | | | | +--------+---------+ + + + | 12/20/ | Office | Otolaryngology | Ulysses Genao MD | | | 2019 | Visit | | [address] | | | | | | [address] [place] | | | | | | [place] [address] | | | | | | [phone] | | | | | | | | +--------+---------+ + + + | 02/15/ | Office | Internal Medicine | Alanis, | | | 2019 | Visit | | MD Petrona | | | | | | [address] [place] | | | | | | [place] [address] | | | | | | [phone] | | | | | | | | +--------+---------+ + + + documented as of this encounter Visit Diagnoses Not on filedocumented in this encounter"
--- OUTSIDE RECORDS SUMMARY | ~2019-12-13 | XMS | Encounter Summary ---
Demographics + + + | Address | [address] | | | [place] [address] | + + + | Home Phone [...] Team Providers + +------+ + | Care Rescue Boat Operator Name | Role | Phone [...] | | | | | | [place], | | | | | | | [place] | | | | | | | [address] | | | | | | | Phone: | | | | | | | [phone] | | | | | | | Fax: | | | | | | | [phone] | +--------+--------+ + + + + Encounter Details +--------+---------+ + + + | Date | Type | Department | Care Team | Description | +--------+---------+ + + + | 11/10/ | Office | Digestive Health | Chris Padgett, | Status Post | | 2007 | Visit | [address] | [address] | Bariatric Surgery; | | | | Ave Mailcode: CH[address]S | [address] | Abdominal Pain, | | | | Center [facility] | [place], [place] | Other Specified Site | | | | and Healing, | [address] | | | | | Building | [phone] | | | | | Floor [place], [place] | | | | | | [address] | | | | | | [phone] | | | +--------+---------+ + + + [...]
--- OUTSIDE RECORDS SUMMARY | ~2019-12-13 | XMS | Encounter Summary ---
Demographics + + + | Address | [address] | | | [place] [address] | + + + | Home Phone [...] Providers + +------+ + | Care Frame Catcher Name | Role | Phone | [...] | | | [facility] | [place], [place] | | | | | [address] | [address] | | | | | [address] | [phone] | | | | | [facility]ician[facility] [address] | | | | | | Physician's | | | | | | [place], | | | | | | [place] [address] | | | | | | [phone] | | | +--------+---------+ + + + [...]
--- OUTSIDE RECORDS SUMMARY | ~2019-12-13 | XMS | Encounter Summary ---
Demographics + + + | Address | [address] | | | [place] [address] | + + + | Home Phone [...] Providers + +------+ + | Care Sales Apprentice Name | Role | Phone | [...] + + | 03/19/ | Telephone | [facility] Division of | Carlos Arreola, | Erroneous Encounter | | 2005 | | Gastroenterology/Hep | [address] | - Disregard (ERROR) | | | | atology [address] | [address] | | | | | [address] | [place] [address] | | | | | Mailcode: [id number] | [phone] | | | | | [facility] | | | | | | [address] | | | | | | [place], [place] | | | | | | [address] | | | | | | [phone] | | | +--------+ + + + [...]
--- OUTSIDE RECORDS SUMMARY | ~2019-12-13 | XMS | Encounter Summary ---
Demographics + + + | Address | [address] | | | [place] [address] | + + + | Home Phone [...] Team Providers + +------+ + | Care Grove Superintendent Name | Role | Phone | [...]
--- OUTSIDE RECORDS SUMMARY | ~2019-12-13 | XMS | Encounter Summary ---
Demographics + + + | Address | [address] | | | [place] [address] | + + + | Home Phone [...] Team Providers + +------+ + | Care Geomatics Professor Name | Role | Phone | [...] as of this encounter Progress Notes Interface, Load Dispatcher In - 06/23/2006 2:36 AM PST [id number] GEOVANNI SKELTON [place] [id number] Clinic Date: 05/05/2006 Clinic: Endocrinology Subjective: Belinda [...] replacement. Beto Meeks M.D. PD / HS [id number] / [id number] / [id number] / cc: Pedrito Gutierrez M.D. [address] [place] [address] Joanna Arshad M.D. [facility] Electronically signed by Beto Meeks 06-20-2006 11:48:11 PM documented i n this encounter Plan of Treatment Not on filedocumented as of this encounter Visit Diagnoses Not on filedocumented in this encounter"
--- OUTSIDE RECORDS SUMMARY | ~2019-12-13 | XMS | Encounter Summary ---
Demographics + + + | Address | [address] | | | [place] [address] | + + + | Home Phone [...] | 07/16/ | Orders Only | [facility] | Alanis, | | | 2017 | | MED CTR OP INFUSION | MD Petrona | | | | | [address] | [address] [facility] | | | | | [place], [place] | [place] [address] | | | | | [address] | [phone] | | | | | [phone] | | | +--------+ + + + [...] 12/20/ | Office | Audiology | Elisabet uMnson MS | | | 2019 | Visit | | [facility] [address] | | | | | | [address] [place] | | | | | | [place] [address] | | | | | | [phone] | | | | | | | | +--------+---------+ + + + | 12/20/ | Office | Otolaryngology | Ulysses Genao MD | | | 2019 | Visit | | [address] | | | | | | [address] | | | | | | [place] [address] | | | | | | [phone] | | | | | | | | +--------+---------+ + + + | 02/15/ | Office | Internal Medicine | Alanis, | | | 2019 | Visit | | MD Petrona | | | | | | [address] [place] | | | | | | [place] [address] | | | | | | [phone] | | | | | | | | +--------+---------+ + + + documented as of this encounter Visit Diagnoses Not on filedocumented in this encounter"
--- OUTSIDE RECORDS SUMMARY | ~2019-12-13 | XMS | Encounter Summary ---
Demographics + + + | Address | [address] | | | [place] [address] | + + + | Home Phone [...] Providers + +------+ + | Care Auto Radiator Specialist Name | Role | Phone | [...] | 2006 | Visit | [facility] | MD Darrion,PhD [address] | Deconditioning; | | | | for Health and | [address] | Physical | | | | Healing [address] | [place], [place] | Deconditioning | | | | Ave Mailcode: | [address] | | | | | [facility] | [phone] | | | | | Health and Healing, | | | | | | [facility] | | | | | | Floor [place], [place] | | | | | | [address] | | | | | | [phone] | | | +--------+---------+ + + + [...] as of this encounter Progress Notes Angel Moraels - 10/28/2006 9:40 AM Gini Meehan is [...] and neurology assessment. Angel Morales M.D., Ph.D. Aircraft Load Controller, Surgical Electric Pile Driver Operator Orthopedics & Cartilage Reconstruction Surgery Department of Orthopedics [email or web address] documented in this encou nter Plan [...]
--- OUTSIDE RECORDS SUMMARY | ~2019-12-13 | XMS | Encounter Summary ---
Demographics + + + | Address | [address] | | | [place] [address] | + + + | Home Phone [...] Team Providers + +------+ + | Care Wealth Management Manager Name | Role | Phone [...] + + | 06/24/ | Telephone | [facility] | Alanis, | Medication Orders | | 2018 | | MEDICINE [address] | MD Petrona | | | | | [place], | [address] | | | | | [place] [address] | [place] [address] | | | | | [phone] | [phone] | | | | | | | [...] 90 day supply to [facility] in [place]. Please advise P M PSTTelephone Encounter - [...] Astrid Grant - 06/24/2018 8:4 2 AM PSTBrenda called regarding her Zolfran Rx. She stated she only received a prescrition f or 30 days not 90 days. She uses [facility] in [place]. She can be reached at [phone]. 8 :44 AM PSTdocumented in this encounter [...] | | | | | [place] [address] | | | | | | [phone] | | | | | | | | +--------+---------+ + + + | 12/20/ | Office | Otolaryngology | Ulysses Genao MD | | 2019 | Visit | | [address] | | | | | | [address] | | | | | | [place] [address] | | | | | | [phone] | | | | | | | | +--------+---------+ + + + | 02/15/ | Office | Internal Medicine | Alanis, | | | 2019 | Visit | | MD Petrona | | | | | | [address] [place] | | | | | | [place] [address] | | | | | | [phone] | | | | | | | | +--------+---------+ + + + documented as of this encounter Visit Diagnoses Not on filedocumented in this encounter"
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
--- OUTSIDE RECORDS SUMMARY | ~2019-12-13 | XMS | Encounter Summary ---
Demographics + + + | Address | [address] | | | [place] [address] | + + + | Home Phone [...] Team Providers + +------+ + | Care Bush And Vine Fruit Crop Farmer Name | Role | Phone | + +------+ + | Sulaiman Carrera MD | PCP | | + +------+ + Encounter Details +--------+ + + + + | Date | Type | Department | Care Team | Description | +--------+ + + + + | 02/23/ | Ancillary | Registration [address] | Beto Meeks MD | | | 2006 | Registratio | [facility] | [address] | | | | n | [place] Mailcode: [id number] | [place], [place] | | | | | [place], [place] | [address] | | | | | [address] | [phone] | | | | | [phone] | | | +--------+ + + + [...] | + + + + + | [facility] | [address] | [place] [address] | | | LABORATORY | | | [...] [address] | | | | | | [facility] Andrew, [facility] [place] | | | | | | [address] | | | | | | [phone] | | | | | | Sincere [...] [facility] | [address] | [place], [place] | | | [facility] | | [address] | | + + + + + documented in this encounter Visit Diagnoses Not on filedocumented in this encounter"
--- OUTSIDE RECORDS SUMMARY | ~2019-12-13 | XMS | Encounter Summary ---
Demographics + + + | Address | [address] | | | [place] [address] | + + + | Home Phone [...] Providers + +------+ + | Care Insurance Counselor Name | Role | Phone | [...] as of this encounter Progress Notes Interface, Jeeper Operator In - 12/11/2005 2:05 AM PDT [id number] GEOVANNI SKELTON J [id number] Clinic Date: 11/27/2005 Clinic: Rheumatology Primary Care [...] 6 months. Caitlin Rivera M.S., F.N.P. / [id number] / [id number] / [id number] / [id number] cc: Pedrito Gutierrez M.D. [address] [place] [address] Electronically signed by Caitlin Rivera 12-10-2005 09:27:21 AM documented i n this encounter Plan of Treatment Not on filedocumented as of this encounter Visit Diagnoses Not on filedocumented in this encounter"
--- OUTSIDE RECORDS SUMMARY | ~2019-12-13 | XMS | Encounter Summary ---
Demographics + + + | Address | [address] | | | [place] [address] | + + + | Home Phone [...] Providers + +------+ + | Care Supervisor Metalizing Name | Role | Phone | + [...] + + | 03/03/ | Telephone | [facility] | [place], | Medication Question | | 2017 | | MEDICINE [address] | MD Petrona | | | | | [place], | [address] [place] | | | | | [place] [address] | [place] [address] | | | | | [phone] | [phone] | | | | | | | [...] - 03/03/2018 3:38 PM PDTCall returned to [place] at the [facility]. I informed her that feels that, although the rx for the Clonidine is a good id ea, it was not appropriate for the patient, due high fall risk. I have also call Frida [facility] pharmacy and gave verbal order to run the Imitrex for #9 tabs/30 days and sig changed . Will run this through with new quantity and sig change for insurance purpose. Left message on patient's voicemail regarding this message. FYI. elephone Encounter - Anastasia Montoyana LTRUDI - 03/03/2018 10:55 AM PDTSpoke to patient states that she got out of bed wrong this am and bent her toes back, sta nader had a previous surgery with pens in her left foot and her foot is turning black. I have instructed her to go to the ER in [facility]. Will call her back later this afternoon [...] PDTReceived a call from Ju Lynch with [facility] wanting to speak with the [...] | | | | | [place] [address] | | | | | | [phone] | | | | | | | | +--------+---------+ + + + | 12/20/ | Office | Otolaryngology | Ulysses Genao MD | | | 2019 | Visit | | [address] | | | | | | [address] | | | | | | [place] [address] | | | | | | [phone] | | | | | | | | +--------+---------+ + + + | 02/15/ | Office | Internal Medicine | Alanis, | | | 2020 | Visit | | MD Petrona | | | | | | [address] [place] | | | | | | [place] [address] | | | | | | [phone] | | | | | | | | +--------+---------+ + + + documented as of this encounter Visit Diagnoses Not on filedocumented in this encounter"
--- OUTSIDE RECORDS SUMMARY | ~2019-12-13 | XMS | Encounter Summary ---
Demographics + + + | Address | [address] | | | [place] [address] | + + + | Home Phone [...] Team Providers + +------+ + | Care Helminthology Teacher Name | Role | Phone | [...] of this encounter Progress Notes Interface, Supervisor Facepiece Line In - 06/06/2005 2:05 AM [facility] [id number] GEOVANNI [place] Clinic Date: 05/29/2005 Clinic: Bariatric [...] a day. She has had workups in [place] including CT and upper GI with small-bowel followthrough which have reportedly been negative. She has some recent changes in her medications including addition of a calcium channel colby and diclofenac. She says her symptoms gets worse every time she takes pain medicine. She is currently taking oxycodone. Her primary doctor in [place] is Dr. Gutierrez. Physical Examination: Vital Signs: [...] will try to arrange for her in [place], so she does not have to come out here. We will call Dr. Gutierrez to try to arrange for this and followup her within 3 months. The patient was seen with Dr. Padgett. Karen Cisneros M.D. Chris Padgett M.D. / SHARIF [id number] / [id number] / [id number] / [id number] Electronically signed by Chris Padgett 06-05-2005 05:29:09 PM documented i n this encounter Plan of Treatment Not on filedocumented as of this encounter Visit Diagnoses Not on filedocumented in this encounter"
--- OUTSIDE RECORDS SUMMARY | ~2019-12-13 | XMS | Encounter Summary ---
Demographics + + + | Address | [address] | | | [place] [address] | + + + | Home Phone [...] Providers + +------+ + | Care Title Closer Name | Role | Phone | [...] as of this encounter Progress Notes Interface, Healthcare Financial Analyst In - 01/11/2005 5:17 PM PDT [place] [facility] [address] [place] [address] or June 26, 2003 Pedrito Gutierrez M.D. [address] [place] [address] RE: BELINDA MEEHAN MR #: [id number] Dear Dr. Gutierrez: I had the pleasure of seeing your patient, Ms. Belinda Meehan, today in the [facility] Division of Rheumatology Clinic. She was [...] Sincerely, Sesar Nash M.D. NURIA / SHARIF [id number] / [id number] / [id number] / [id number] cc: Kelley Alegre [address] [place] [address] FAX: [phone] signed by Interface, Healthcare Financial Analyst In at 01/11/2005 5:17 PM PDTdocumented in this encounter Plan of Treatment Not on filedocumented as of this encounter Visit Diagnoses Not on filedocumented in this encounter"
--- OUTSIDE RECORDS SUMMARY | ~2019-12-13 | XMS | Encounter Summary ---
Demographics + + + | Address | [address] | | | [place] [address] | + + + | Home Phone [...] Providers + +------+ + | Care Bench Shear Operator Name | Role | Phone [...] | | | [facility] | [place], [place] | and counseling | | | | [address] | [address] | | | | | [address] | [phone] | | | | | [facility] | | | | | | Physician's | | | | | | Pav[place], | | | | | | [place] [address] | | | | | | [phone] | | | +--------+ + + + [...]
--- OUTSIDE RECORDS SUMMARY | ~2019-12-13 | XMS | Encounter Summary ---
Demographics + + + | Address | [address] | | | [place] [address] | + + + | Home Phone [...] Team Providers + +------+ + | Care Fermenter Wine Name | Role | Phone | + [...]
--- OUTSIDE RECORDS SUMMARY | ~2019-12-13 | XMS | Encounter Summary ---
Demographics + + + | Address | [address] | | | [place] [address] | + + + | Home Phone [...] Providers + +------+ + | Care Battery Assembler Dry Cell Name | Role | Phone | + +------+ + | Petrona Thapa | PCP | | | MD | | | + +------+ + Encounter Details +--------+---------+ + + + | Date | Type | Department | Care Team | Description | +--------+---------+ + + + | 12/20/ | Office | [facility] | Elisabet Munson MS | Sensorineural | | 2019 | Visit | AUDIOLOGY AND | CCC-A [address] | hearing loss (SNHL) | | | | HEARING AID SERVICES | [address] | of both ears | | | | [address] | [place] [address] | (Primary Dx); | | | | [address] | [phone] | Dizziness and | | | | [place] [address] | | giddiness | | | | [phone] | | | +--------+---------+ + + + [...] | | | | | [place] [address] | | | | | | [phone] | | | | | | | | +--------+---------+ + + + | 12/20/ | Office | Otolaryngology | Ulysses Genao MD | | | 2019 | Visit | | [address] | | | | | | [address] | | | | | | [place] [address] | | | | | | [phone] | | | | | | | | +--------+---------+ + + + | 02/15/ | Office | Internal Medicine | Alanis, | | | 2019 | Visit | | MD Petrona | | | | | | [address] [place] | | | | | | [place] [address] | | | | | | [phone] | | | | | | | [...]
--- OUTSIDE RECORDS SUMMARY | ~2019-12-13 | XMS | Encounter Summary ---
Demographics + + + | Address | [address] | | | [place] [address] | + + + | Home Phone [...] Team Providers + +------+ + | Care Guitar Maker Hand Name | Role | Phone [...] + + | 02/09/ | Telephone | [facility] | Alanis, | Other | | 2018 | | MEDICINE [address] | MD [place]rona | | | | | MALIK F[place]ON, | [address] [facility] | | | | | [place] [address] | [place] [address] | | | | | [phone] | | | | | | | [...] follow up appt with him on Thursday. Vitaliy pratt MD to know is on 2 [...] | | | | | [place] [address] | | | | | | [phone] | | | | | | | | +--------+---------+ + + + | 12/20/ | Office | Otolaryngology | Ulysses Genao MD | | | 2019 | Visit | | [address] | | | | | | [address] | | | | | | [place] [address] | | | | | | [phone] | | | | | | | | +--------+---------+ + + + | 02/15/ | Office | Internal Medicine | Alanis, | | | 2019 | Visit | | MD Petrona | | | | | | [address] [place] | | | | | | [place] [address] | | | | | | [phone] | | | | | | | | +--------+---------+ + + + documented as of this encounter Visit Diagnoses Not on filedocumented in this encounter"
--- OUTSIDE RECORDS SUMMARY | ~2019-12-13 | XMS | Encounter Summary ---
Demographics + + + | Address | [address] | | | [place] [address] | + + + | Home Phone [...] Providers + +------+ + | Care Rolling Up Machine Operator Name | Role | Phone [...] | | | [facility] | [place], [place] | | | | | [address] | [address] | | | | | [address] | [phone] | | | | | Physician's | | | | | | Pavilion, 1st floor | | | | | | [place], [place] | | | | | | [address] | | | | | | [phone] | | | +--------+ + + + [...]
--- OUTSIDE RECORDS SUMMARY | ~2019-12-13 | XMS | Encounter Summary ---
Demographics + + + | Address | [address] | | | [place] [address] | + + + | Home Phone [...] Team Providers + +------+ + | Care Cut Lace Machine Operator Name | Role | Phone [...] as of this encounter Progress Notes Interface, Fern Cutter In - 10/30/2005 2:06 AM PDT [id number] GEOVANNI Barnes [id number] Clinic Date: 10/23/2005 Clinic: Ms. Meehan comes in today for followup of her abdominal CT. The CT is normal. We will follow her for abdominal pain. I will see her again in 3 months. If she has exacerbation, she can come earlier. I also gave her 30 tablets of 5 mg oxycodone for the pain. Chris Padgett M.D. CD / [id number] / [id number] / [id number] / Electronically signed by Chris Padgett 10-29-2005 10:10:39 AM documented i n this encounter Plan of Treatment Not on filedocumented as of this encounter Visit Diagnoses Not on filedocumented in this encounter"
--- OUTSIDE RECORDS SUMMARY | ~2019-12-13 | XMS | Encounter Summary ---
Demographics + + + | Address | [address] | | | [place] [address] | + + + | Home Phone [...] Providers + +------+ + | Care Trim Machine Operator Name | Role | Phone [...] + + | 04/09/ | Telephone | [facility] Division of | Carlos Arreola, | Erroneous Encounter | | 2005 | | Gastroenterology/Hep | [address] | - Disregard | | | | atology [address] | (duplicate call; see | | | | [address] | [place] [address] | other encounter ) | | | | Mailcode: [id number] | [phone] | | | | | [facility] | | | | | | [address] | | | | | | [place], [place] | | | | | | [address] | | | | | | [phone] | | | +--------+ + + + [...]
--- OUTSIDE RECORDS SUMMARY | ~2019-12-13 | XMS | Encounter Summary ---
Demographics + + + | Address | [address] | | | [place] [address] | + + + | Home Phone [...] Providers + +------+ + | Care Utility Worker Name | Role | Phone | + +------+ + | Petrona Thapa | PCP | | | MD | | | + +------+ + Encounter Details +--------+ + + + + | Date | Type | Department | Care Team | Description | +--------+ + + + + | 09/06/ | Abstract | [facility] | Provider, | | | 2018 | | GASTROENTEROLOGY | MD [address] | | | | | [address] [facility] | Sulma Boyd | | | | | [address] [place] [address] | [place] [address] | | | | | [address] | | | | | | [phone] | | | +--------+ + + + [...] | | | | | [place] [address] | | | | | | [phone] | | | | | | | | +--------+---------+ + + + | 12/20/ | Office | Otolaryngology | Ulysses Genao MD | | | 2019 | Visit | | [address] | | | | | | [address] | | | | | | [place] [address] | | | | | | [phone] | | | | | | | | +--------+---------+ + + + | 02/15/ | Office | Internal Medicine | EmmyHeikePrudencioflip, | | | 2019 | Visit | | MD [place]rona | | | | | | [address] | | | | | | [place] [address] | | | | | | [phone] | | | | | | | [...]
--- OUTSIDE RECORDS SUMMARY | ~2019-12-13 | XMS | Encounter Summary ---
Demographics + + + | Address | [address] | | | [place] [address] [...] Providers + +------+ + | Care Correctional Medicine Physician Name | Role | Phone [...] as of this encounter Progress Notes Interface, Broth Mixer In - 01/13/2005 9:03 AM PDT [id number] GEOVANNI Barnes Clinic Date: 01/02/2005 Clinic: [facility] Subjective: Ms. Meehan presents today on a walk-in basis for evaluation of some discharge from her panniculectomy incisions over her medial thighs. She reports that she was in town today from [place], [place], to get some labs drawn at [facility] and decided to stop by the [...] Sree Riley M.D. Chris Padgett M.D. / [id number] / [id number] / [id number] / [id number] C: 01/08/2005 cmw documented i n this encounter Plan of Treatment Not on filedocumented as of this encounter Visit Diagnoses Not on filedocumented in this encounter"
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
--- OUTSIDE RECORDS SUMMARY | ~2019-12-13 | XMS | Encounter Summary ---
Demographics + + + | Address | [address] | | | [place] [address] | + + + | Home Phone [...] Providers + +------+ + | Care Veneer Taper Name | Role | Phone | + [...] | | | | | Encounter | [place] | | | | | for | [address] | [address] | | | | | long-term | | Phone: | | | | | (current) | | [phone] | | | | | use of other | | Fax: | | | | | medications | | [phone] | | | | | LBP (low [...] MEDICAL CENTER | Lukasz Charles, | Major depressive | | 2012 | Visit | [address] | PhD [address] | disorder, recurrent | | | | Mailcode: CH15P | [place], [place] | episode, moderate | | | | [place] [facility] | [address] | ([facility]) (Primary Dx); | | | | and Healing, | [phone] | LBP (low back pain); | | | | | | Fibromyalgia; | | | | Floor [place], [place] | | Adjustment disorder | | | | [address] | | with anxiety | | | | [phone] | | | +--------+---------+ + + + [...] recommended that she return to [facility] for pain assessment and treatment. She reported [...] some changes in her living situation. Diagnosis: [place] I: 1. (296.32) Major depressive disorder, recurrent, moderate. 2. (309.24) Adjustment disorder with anxiety. [place] II: Deferred [place] III: abdominal pain, migraine headache, low back pain, fibromyalgia. [place] IV: low finances [place] V: GAF 55-60 Plan: return in 1 month. Check mood, pain, activity. Ask about visiting with Dr. Montero, spinal cord stimulator, any changes at home. Continue cognitive/behavioral therapy. Total time spent with patient was approximately 50 minutes. LUKASZ CHARLES PHD [facility] [address] [place] [address] [place] [address] documented in this en counter Plan of [...]
--- OUTSIDE RECORDS SUMMARY | ~2019-12-13 | XMS | Encounter Summary ---
Demographics + + + | Address | [address] | | | [place] [address] | + + + | Home Phone [...] + +------+ + | Care Quality Assurance Assessor Name | Role | Phone | [...]
--- OUTSIDE RECORDS SUMMARY | ~2019-12-13 | XMS | Encounter Summary ---
Demographics + + + | Address | [address] | | | [place] [address] | + + + | Home Phone [...] Providers + +------+ + | Care Manager Mail Name | Role | Phone | + [...] 2007 | Visit | Rheumatology [address] | EMPLOYEE PLACEMENT SPECIALIST | syndrome [address] | | | | [address] | | (Primary Dx) | | | | Mailcode: OPC5 | | | | | | Outpatient Clinic | | | | | | Building [place], | | | | | | [place] [address] | | | | | | [phone] | | | +--------+---------+ + + + [...] have much room. I wonder about small aircraft engineer ior fossa. There is a disc bulge [...] 07/05/2007 56.0 15.0-75.0 Final Test performed by [facility]. VITAMIN D 25 HYDROXY (ng/mL) 07/03/2007 47 20-57 Final Comment: TEST INFORMATION: VITAMIN D, 25-HYDROXY This assay accurately quantifies the sum of vitamin D3, 25-hydroxy and vitamin D2, 25-hydroxy. Deficiency: Less than 20 ng/mL Insufficiency: 20-29 ng/mL Optimum Level: 30-80 ng/mL Possible Toxicity: Greater than 80 ng/mL Performed by [facility], [address] [place] [address] [email or web address], Sincere Jordan MD - Lab. Director documented in this encount er Plan of Treatment Not on filedocumented as of this encounter Visit Diagnoses + + | Diagnosis | + + | Fibromyalgia syndrome 729.1 - Primary Mylagia and myositis, unspecified | + + documented in this encounter"
--- OUTSIDE RECORDS SUMMARY | ~2019-12-13 | XMS | Encounter Summary ---
[...] Providers + +------+ + | Care Mine Engineering Manager Name | Role | Phone [...]
--- OUTSIDE RECORDS SUMMARY | ~2019-12-13 | XMS | Encounter Summary ---
Demographics + + + | Address | [address] | | | [place] [address] | + + + | Home Phone [...] Providers + +------+ + | Care Machine Sizer Name | Role | Phone | [...] [id number] | | | | | | [place], [place] | | | | | | [address] | | | | | | [phone] | | | +--------+ + + + [...]
--- OUTSIDE RECORDS SUMMARY | ~2019-12-13 | XMS | Encounter Summary ---
Demographics + + + | Address | [address] | | | [place] [address] | + + + | Home Phone [...] + +------+ + | Care Sheet Rock Applier Name | Role | Phone | [...] + | 06/07/ | Refill | [facility] | Alanis, | Medication Refill | | 2017 | | MEDICINE [address] | MD Petrona | | | | | [place], | [address] [facility] | | | | | [place] [address] | [place] [address] | | | | | [phone] | [phone] | | | | | | | [...] | [facility] [address] | | | | | | ST [place] | | | | | | [place] [address] | | | | | | [phone] | | | | | | | | +--------+---------+ + + + | 12/20/ | Office | Otolaryngology | Ulysses Genao MD | | | 2019 | Visit | | [address] | | | | | | [address] [place] | | | | | | [place] [address] | | | | | | [phone] | | | | | | | | +--------+---------+ + + + | 02/15/ | Office | Internal Medicine | Alanis, | | | 2019 | Visit | | MD Petrona | | | | | | [address] [place] | | | | | | [place] [address] | | | | | | [phone] | | | | | | | | +--------+---------+ + + + documented as of this encounter Visit Diagnoses Not on filedocumented in this encounter"
--- OUTSIDE RECORDS SUMMARY | ~2019-12-13 | XMS | Encounter Summary ---
Demographics + + + | Address | [address] | | | [place] [address] | + + + | Home Phone [...] Providers + +------+ + | Care Spring Encaser Name | Role | Phone | + [...] of this encounter Progress Notes Interface, Pulp Mill Supervisor In - 08/30/2005 2:07 AM PST [id number] [facility] Date: 07/24/2005 Clinic: Surgery [...] for surgery. Chris Padgett M.D. ROSA / [id number] / [id number] / [id number] / [id number] Electronically signed by Chris Padgett 08-29-2005 03:28:14 PM documented i n this encounter Plan of Treatment Not on filedocumented as of this encounter Visit Diagnoses Not on filedocumented in this encounter"
--- OUTSIDE RECORDS SUMMARY | ~2019-12-13 | XMS | Encounter Summary ---
Demographics + + + | Address | [address] | | | [place] [address] | + + + | Home Phone [...] Team Providers + +------+ + | Care Baggageman Name | Role | Phone | + [...] + + | 03/21/ | Office | [facility] | Emmy-Kamlesh, | Migraine without | | 2019 | Visit | MEDICINE [address] | MD Petrona | aura and without | | | | [address] [place], | [address] [facility] | status migrainosus, | | | | [place] [address] | [place] [address] | not intractable | | | | [phone] | [phone] | (Primary Dx); | | | | [...] She is working with an orthopedist in [facility], and she anticipates that she will [...] by mouth nightly as needed for Insom nnia. Dispense: 30 tablet; Refill: 3 REVIEW OF [...] obstructive pulmonary disease) ([facility]) Depression Diarrhea Dumping syndrome Fall at home Fatigue fracture of vertebra Fibromyalgia Full dentures GERD (gastroesophageal reflux disease) Glaucoma Hyperparathyroidism ([facility]) Hypothyroidism IBS (irritable bowel syndrome) Idiopathic scoliosis Leg edema Low back pain Lumbar postlaminectomy syndrome Lumbar radiculopathy primarily right 01/04/2015 Meniere syndrome Migraine with aura Migraines Muscle cramping Muscle spasm Myalgia Nausea Nonalcoholic hepatosteatosis Obesity Opioid dependence ([facility]) Orthostatic hypotension OLIVER (obstructive sleep apnea) Osteoarthritis, generalized Osteopenia Osteoporosis Palpitations Peripheral neuropathy Rheumatoid arthritis ([facility]) Right arm pain 01/04/2015 RLS (restless legs syndrome) S/P lumbar fusion 01/04/2015 Scoliosis Sleep apnea Spondylosis with myelopathy, lumbar region Stroke ([facility]) Syncope Tremor Type II or unspecified [...] Procedure: COLONOSCOPY; Surgeon: Luther Brito MD; Location: [facility]ICAL PROC[facility]URE [facility] DILATION AND CURETTAGE OF UTERUS ELBOW SURGERY FINGER TRIGGER RELEASE 2002 FINGER TRIGGER RELEASE 2010 GASTRIC BYPASS SURGERY 2004 HYSTERECTOMY 05/14/1980 JOINT REPLACEMENT Bilateral 2006 2007 KNEE ARTHROSCOPY 2005 LAPAROSCOPY 01/27/2015 LAPAROTOMY 2008 ROTATOR CUFF REPAIR 2005 SPINE SURGERY TONSILLECTOMY 1964 UPPER GASTROINTESTINAL ENDOSCOPY N/A 12/18/2017 Procedure: EGD; Surgeon: Luther Brito MD; Location: [facility] MEDICAL PROCEDURE UNIT CURRENT MEDICATIONS [...] Cla Maddie Thapa MD 1,000 mcg at 03/21/19 0951 ALLERGIES Allergies Allergen Reactions Ensure Diarrhea Food Diarrhea Lactose Pbxuasyanb-Nhk-Uzvw-Codeine Other (See Comments) Balance problems Codeine Sulfate Nausea Only Food Allergy Formula Diarrhea Ensure Levofloxacin Hives, Itching and Rash Butalbital Ropinirole Amitriptyline Hcl Other (See Comments) Confused and questionable for seizures Ezfjpypofk-Lufi-Qzwgnovp Rash duplicate Hoquyfwcii-Aabw-Iniopjoz Hives and Rash Cephalexin Hives Ciprofloxacin Hives [...] 1. Parts of this documentwere created using [employer] speech recognition software. As a resu lt, [...] | | | | | [place] [address] | | | | | | [phone] | | | | | | | | +--------+---------+ + + + | 12/20/ | Office | Otolaryngology | Ulysses Genao MD | | | 2019 | Visit | | [address] | | | | | | [address] [place] | | | | | | [place] [address] | | | | | | [phone] | | | | | | | | +--------+---------+ + + + | 02/15/ | Office | Internal Medicine | Alanis, | | | 2019 | Visit | | MD Petrona | | | | | | [address] [place] | | | | | | [place] [address] | | | | | | [phone] | | | | | | | [...]
--- OUTSIDE RECORDS SUMMARY | ~2019-12-13 | XMS | Encounter Summary ---
Demographics + + + | Address | [address] | | | [place] [address] [...] Providers + +------+ + | Care Estate Attorney Name | Role | Phone | [...] | | | | [address] Physician's | [place], [place] | | | | | [address] | [address] | | | | | [place], [place] | [phone] | | | | | [address] | | | | | | [phone] | | | +--------+ + + + [...] DEPARTMENT OF | [address] | [place] [address] | | | PATHOLOGY | [address] | | | + + + + + | [facility] DEPARTMENT OF | [address] | [place] [address] | | | PATHOLOGY | [address] [...] + + | [facility] | [address] | [place] [address] | | | PATHOLOGY | [address] | | | + + + + + | [facility] | [address] | [place] [address] | | | PATHOLOGY | [address] | | | + + + + + documented in this encounter Visit Diagnoses Not on filedocumented in this encounter"
--- OUTSIDE RECORDS SUMMARY | ~2019-12-13 | XMS | Encounter Summary ---
Demographics + + + | Address | [address] | | | [place] [address] | + + + | Home Phone [...] Team Providers + +------+ + | Care Dicer Machine Operator Name | Role | Phone [...] as of this encounter Progress Notes Interface, Shellfish Meat Separator Operator In - 01/12/2005 10:09 AM PDT [id number] [facility] Date: 12/25/2004 Clinic: GENERAL [...] [facility] at fax #[phone], first 30 pills, oxycodone 5 mg to [...] the current plan. Melisa Thorne / SHARIF [id number] / [id number] / [id number] / [id number] Electronically signed by Kenisha Melton 01-01-2005 04:41:20 PM documented i n this encounter Plan of Treatment Not on filedocumented as of this encounter Visit Diagnoses Not on filedocumented in this encounter"
--- OUTSIDE RECORDS SUMMARY | ~2019-12-13 | XMS | Encounter Summary ---
Demographics + + + | Address | [address] | | | [place] [address] | + + + | Home Phone [...] Team Providers + +------+ + | Care Stringing Machine Tender Name | Role | Phone | + +------+ + | Maria Esther Cintron MD | PCP | | + +------+ + Encounter Details +--------+ + + + + | Date | Type | Department | Care Team | Description | +--------+ + + + + | 04/19/ | Telephone | [facility] | Chris Padgett, | | | 2007 | | [place] [address] | [address] [facility] | | | | | Bethanie Mailcode: CH4S | Naeem Mcrae | | | | | [facility] | [place], [place] | | | | | and Healing, | [address] | | | | | Building , 6th | [phone] | | | | | Floor [place], [place] | | | | | | [address] | | | | | | [phone] | | | +--------+ + + + [...]
--- OUTSIDE RECORDS SUMMARY | ~2019-12-13 | XMS | Encounter Summary ---
Demographics + + + | Address | [address] | | | [place] [address] | + + + | Home Phone [...] Providers + +------+ + | Care Municipal Engineer Name | Role | Phone | [...] | | | | SURGERY - | [place], [place] | [address] | | | | | UROLOGY | [address] | for Health | | | | | | Phone: | dat [place], | | | | | | [phone] | Building [address], | | | | | | Fax: | 10th Floor | | | | | | [phone] | [place], [place] | | | | | | | [address] | | | | | | | Phone: | | | | | | | [phone] | | | | | | | Fax: | | | | | | | [phone] | +--------+--------+ + + + + Reason [...] | Status Post | | | | [facility] | [facility] [place] | Bariatric Surgery | | | | and Healing, | [address] | | | | | [facility] | [phone] | | | | | Floor [place], [place] | | | | | | [address] | | | | | | [phone] | | | +--------+---------+ + + + [...] coughing. Medications: Fentanyl 25 mcg 72 hours, [place]/JOJO 10 mg/325 mg PRN Q 6 hrs, [...]
--- OUTSIDE RECORDS SUMMARY | ~2019-12-13 | XMS | Encounter Summary ---
Demographics + + + | Address | [address] | | | [place] [address] | + + + | Home Phone [...] Providers + +------+ + | Care Juvenile Officer Name | Role | Phone | [...]
--- OUTSIDE RECORDS SUMMARY | ~2019-12-13 | XMS | Encounter Summary ---
Demographics + + + | Address | [address] | | | [place] [address] | + + + | Home Phone [...] Providers + +------+ + | Care Paint Spray Inspector Name | Role | Phone | [...] | - Disregard | | | | [facility] | | | | | | [address] | | | | | | Mailcode: CH15P | | | | | | [facility] | | | | | | and Healing, | | | | | | Building | | | | | | Floor [place], [place] | | | | | | [address] | | | | | | [phone] | | | +--------+ + + + [...]
--- OUTSIDE RECORDS SUMMARY | ~2019-12-13 | XMS | Encounter Summary ---
Demographics + + + | Address | [address] | | | [place] [address] | + + + | Home Phone [...] Abdominal pain | | 2005 | | [place] [address] | | | | | | [address] | | | | | | Mailcode: [id number] | | | | | | Physician's [place] | | | | | | [place], [place] | | | | | | [address] | | | | | | [phone] | | | +--------+ + + + [...]
--- OUTSIDE RECORDS SUMMARY | ~2019-12-13 | XMS | Encounter Summary ---
Demographics + + + | Address | [address] | | | [place] [address] | + + + | Home Phone [...] +------+ + | Care Learning And Development Administrator Name | Role | Phone | [...] + | 07/14/ | Refill | [facility] | Alanis, | Medication Refill | | 2017 | | MEDICINE [address] | MD [place]ron[place] | | | | | [place], | [address] [facility] | | | | | [place] [address] | [place] [address] | | | | | [phone] | [phone] | | | | | | | [...] hours PRN Quantity: unknown Pharmacy: [facility] Call/Mail/Property Field Inspector/Fax: fax Date of Last Refill: unknown Date [...] | | | | | [place] [address] | | | | | | [phone] | | | | | | | | +--------+---------+ + + + | 12/20/ | Office | Otolaryngology | Ulysses Genao MD | | | 2019 | Visit | | [address] | | | | | | [address] [place] | | | | | | [place] [address] | | | | | | [phone] | | | | | | | | +--------+---------+ + + + | 02/15/ | Office | Internal Medicine | Alanis, | | | 2019 | Visit | | MD [place] | | | | | | [address] | | | | | | [place] [address] | | | | | | [phone] | | | | | | | | +--------+---------+ + + + documented as of this encounter Visit Diagnoses Not on filedocumented in this encounter"
--- OUTSIDE RECORDS SUMMARY | ~2019-12-13 | XMS | Encounter Summary ---
Demographics + + + | Address | [address] | | | [place] [address] | + + + | Home Phone [...] | - Disregard | | | | [facility] | | | | | | [address] | | | | | | Mailcode: CH15P | | | | | | [facility] | | | | | | and [place], | | | | | | [facility] | | | | | | [place], [place] | | | | | | [address] | | | | | | [phone] | | | +--------+ + + + [...]
--- OUTSIDE RECORDS SUMMARY | ~2019-12-13 | XMS | Encounter Summary ---
Demographics + + + | Address | [address] | | | [place] [address] | + + + | Home Phone [...] Providers + +------+ + | Care Check And Transfer Beader Name | Role | Phone | + [...] [place] | | | | | [place] [address] | [place] [address] | | | | | [phone] | [phone] | | | | | | | [...] D - 02/22/2019 12:00 PM PDTPatient w ould like to speak with the nurse. Patient [...] | | | | | [place] [address] | | | | | | [phone] | | | | | | | | +--------+---------+ + + + | 12/20/ | Office | Otolaryngology | Ulysses Genao MD | | | 2019 | Visit | | [address] | | | | | | [address] [place] | | | | | | [place] [address] | | | | | | [phone] | | | | | | | | +--------+---------+ + + + | 02/15/ | Office | Internal Medicine | Alanis, | | | 2019 | Visit | | MD [place] | | | | | | [address] [place] | | | | | | [place] [address] | | | | | | [phone] | | | | | | | | +--------+---------+ + + + documented as of this encounter Visit Diagnoses Not on filedocumented in this encounter"
--- OUTSIDE RECORDS SUMMARY | ~2019-12-13 | XMS | Encounter Summary ---
Demographics + + + | Address | [address] | | | [place] [address] | + + + | Home Phone [...] Providers + +------+ + | Care Nursing Aide Name | Role | Phone | + +------+ + | Sulaiman Carrera MD | PCP | | + +------+ + Encounter Details +--------+ + + + + | Date | Type | Department | Care Team | Description | +--------+ + + + + | 01/29/ | Ancillary | Registration [address] | Beto Meeks MD | | | 2005 | Registratio | [facility] | [address] | | | | n | [place] Mailcode: RPB07 | [place], [place] | | | | | [place], [place] | [address] | | | | | [address] | [phone] | | | | | [phone] | | | +--------+ + + + [...] | | | | Test performed by [facility] | | | | | [...] [facility] | [address] | [place], [place] | | | [facility] | | [address] | | + + + + + [...] uIU/ml | | | | | [facility] [...] + + + | [facility] | [address] | [place] [address] | | | LABORATORY | | | [...] BASO # | 0.0 | <0.3 | [facility] | | | | | | DEPARTMENT [...] | + + + + + | [facility] DEPARTMENT OF | [address] [facility] | [place] [address] | | | PATHOLOGY | [address] | | | + + + + + | [facility] DEPARTMENT OF | [address] [facility] | [place] [address] | | | PATHOLOGY | [address] [...] DEPARTMENT OF | [address] | [place], [place] [address] | | | PATHOLOGY | [address] | | | + + + + + | [facility] DEPARTMENT OF | [address] | [place] [address] | | | PATHOLOGY | [address] [...] Performed At | + + + | [id number] Estimated GFR > 60 mL/min/1.73 sq m if non- | [facility] | | [id number] Estimated GFR > 60 mL/min/1.73 sq m [...] | + + + + + | [facility] DEPARTMENT OF | [address] | [place] [address] | | | PATHOLOGY | [address] | | | + + + + + | [facility] DEPARTMENT OF | [address] | [place] [address] | | | PATHOLOGY | [address] | | | + + + + + documented in this encounter Visit Diagnoses Not on filedocumented in this encounter"
--- OUTSIDE RECORDS SUMMARY | ~2019-12-13 | XMS | Encounter Summary ---
Demographics + + + | Address | [address] | | | [place] [address] | + + + | Home Phone [...] + +------+ + | Care Child Care Centre Manager Name | Role | Phone [...] [address] | | | | | [place], [place] | [place], [place] | | | | | [address] | [address] | | | | | [phone] | [phone] | | | | | | | [...]
--- OUTSIDE RECORDS SUMMARY | ~2019-12-13 | XMS | Encounter Summary ---
Demographics + + + | Address | [address] | | | [place] [address] | + + + | Home Phone [...] + +------+ + | Care Director Of Collections And Archives Name | Role | Phone | + [...] + + | 09/09/ | Telephone | [facility] | Alanis, | Phone Attempt | | 2018 | | [facility] [address] | MD Petrona | | | | | [place], | [address] [facility] | | | | | [place] [address] | [place] [address] | | | | | [phone] | [phone] | | | | | | | [...] | | | | | [place] [address] | | | | | | [phone] | | | | | | | | +--------+---------+ + + + | 12/20/ | Office | Otolaryngology | Ulysses Genao MD | | | 2019 | Visit | | [address] | | | | | | [address] [place] | | | | | | [place] [address] | | | | | | [phone] | | | | | | | | +--------+---------+ + + + | 02/15/ | Office | Internal Medicine | Alanis, | | | 2019 | Visit | | MD Petrona | | | | | | [address] [place] | | | | | | [place] [address] | | | | | | [phone] | | | | | | | | +--------+---------+ + + + documented as of this encounter Visit Diagnoses Not on filedocumented in this encounter
--- OUTSIDE RECORDS SUMMARY | ~2019-12-13 | XMS | Encounter Summary ---
Demographics + + + | Address | [address] | | | [place] [address] | + + + | Home Phone [...] Providers + +------+ + | Care Supervisor Welding Equipment Repairer Name | Role | Phone [...] + | 07/28/ | Telephone | [facility] | Alanis, | Other | | 2019 | | MEDICINE [address] | MD Petrona | | | | | [place], | [address] [facility] | | | | | [place] [address] | [place] [address] | | | | | [phone] | [phone] | | | | | | | [...] Advised to speak to neighbor or the operations program manager, states she has and is not get [...] | | | | | | [place] [address] | | | | | | [phone] | | | | | | | | +--------+---------+ + + + | 12/20/ | Office | Otolaryngology | Ulysses Genao MD | | | 2019 | Visit | | [address] | | | | | | [address] [place] | | | | | | [place] [address] | | | | | | [phone] | | | | | | | | +--------+---------+ + + + | 02/15/ | Office | Internal Medicine | Alanis, | | | 2019 | Visit | | MD Petrona | | | | | | [address] [place] | | | | | | [place] [address] | | | | | | [phone] | | | | | | | | +--------+---------+ + + + documented as of this encounter Visit Diagnoses Not on filedocumented in this encounter"
--- OUTSIDE RECORDS SUMMARY | ~2019-12-13 | XMS | Encounter Summary ---
Demographics + + + | Address | [address] | | | [place] [address] | + + + | Home Phone [...] Providers + +------+ + | Care Piano Regulator Name | Role | Phone | [...] + + | 01/04/ | Telephone | [facility] [place] | Ulysses Genao MD | Other | | 2017 | | OTOLARYNGOLOGY [address] | [address] | | | | | [address] | [address] [facility] | | | | | [place], [place] | [place] [address] | | | | | [address] | [phone] | | | | | [phone] | | | +--------+ + + + [...] Miscellaneous Notes Telephone Encounter - Louise Randall, Boat Hand - 01/04/2018 2:45 PM PDTReferr al has been approved and have been faxed to [facility] at [facility] elephone Encounter - Louise Carlton Boat Hand - 01/04/2018 9:58 AM PDTWaiting for referral to be approved by insurance and then I will send the order es. elephone Encounter - Ly Li - 018 8:58 AM PDT Vivi called wanting to know where the orders are for Belinda Shefali for Vertigo? Please fax orders to : [phone] Fax document ed in this encounter Plan [...] | | | | | | [place] [address] | | | | | | [phone] | | | | | | | | +--------+---------+ + + + | 12/20/ | Office | Otolaryngology | Ulysses Genao MD | | | 2019 | Visit | | [address] | | | | | | [address] [place] | | | | | | [place] [address] | | | | | | [phone] | | | | | | | | +--------+---------+ + + + | 02/15/ | Office | Internal Medicine | Alanis, | | | 2019 | Visit | | MD Petrona | | | | | | [address] [place] | | | | | | [place] [address] | | | | | | [phone] | | | | | | | | +--------+---------+ + + + documented as of this encounter Visit Diagnoses Not on filedocumented in this encounter"
--- OUTSIDE RECORDS SUMMARY | ~2019-12-13 | XMS | Encounter Summary ---
Demographics + + + | Address | [address] | | | [place] [address] | + + + | Home Phone [...] Providers + +------+ + | Care Manager Digital Name | Role | Phone | + [...] Densitometry | | MD Beto | Density [facility] | | | | | Osteoporosis | [address] | [address] | | | | | Procedures | Ave | Naeem Mcrae | | | | | CONSULT TO | [place], [place] | Rd Mailcode: | | | | | BONE | [address] | [address] | | | | | DENSITOMETRY | Phone: | Naeem De La Rosa | | | | | | [phone] | [place], [place] | | | | | | Fax: | [address] | | | | | | [phone] | Phone: | | | | | | | [phone] | | | | | | | Fax: | | | | | | | [phone] | +--------+--------+ + + + + Reason [...] Sara Kovacs | | | | | [facility] | [place], [place] | | | | | [address] | [address] | | | | | [address] | [phone] | | | | | [facility] | | | | | | Physician's | | | | | | Pavilion [place], | | | | | | [place] [address] | | | | | | [phone] | | | +--------+ + + + [...]
--- OUTSIDE RECORDS SUMMARY | ~2019-12-13 | XMS | Encounter Summary ---
Demographics + + + | Address | [address] | | | [place] [address] | + + + | Home Phone [...] Providers + +------+ + | Care Sugar House Supervisor Name | Role | Phone | [...] of this encounter Progress Notes Interface, Nurse Emergency In - 01/03/2006 3:02 AM [facility] [place] [address] [place] [address] [address], [place] [address] or November 01, 2002 Pedrito Gutierrez M.D. [facility] [address] [place] [id number] RE: BELINDA MEEHAN MR #: [id number] Dear Dr. Gutierrez: Belinda was seen in [...] be referred for bariatric surgery here at [facility]. We have several physicians who [...] Sincerely, Maurilio Estrada M.D. KRIS / SHARIF [id number] / [id number] / [id number] / Tdocumented in this encounter Plan of Treatment Not on filedocumented as of this encounter Visit Diagnoses Not on filedocumented in this encounter"
--- OUTSIDE RECORDS SUMMARY | ~2019-12-13 | XMS | Encounter Summary ---
[...] Providers + +------+ + | Care Long Chain Quiller Tender Name | Role | Phone | [...] as of this encounter Progress Notes Interface, Forming Department End Finder In - 10/15/2005 2:06 AM PDT [id number] [facility] Date: 09/18/2005 Clinic: Ms. [...] about a month. Chris Padgett M.D. / [id number] / [id number] / [id number] / [id number] Electronically signed by Chris Padgett 10-14-2005 08:13:46 AM documented i n this encounter Plan of Treatment Not on filedocumented as of this encounter Visit Diagnoses Not on filedocumented in this encounter"
--- OUTSIDE RECORDS SUMMARY | ~2019-12-13 | XMS | Encounter Summary ---
Demographics + + + | Address | [address] | | | [place] [address] | + + + | Home Phone [...] + +------+ + | Care Retail Team Member Name | Role | Phone | + +------+ + | Pedrito Gutierrez MD | PCP | | + +------+ + Encounter Details +--------+ + + + + | Date | Type | Department | Care Team | Description | +--------+ + + + + | 11/24/ | Respiratory | | Other, Faculty | | | 2003 | | | [phone] | | | | [facility] | | [...]
--- OUTSIDE RECORDS SUMMARY | ~2019-12-13 | XMS | Encounter Summary ---
Demographics + + + | Address | [address] | | | [place] [address] | + + + | Home Phone [...] Providers + +------+ + | Care Surveillance Director Name | Role | Phone | [...] + + | 05/26/ | Telephone | [facility] | Alanis, | Medication Question | | 2018 | | MEDICINE [address] | MD Petrona | | | | | [place], | [address] [place] | | | | | [place] [address] | [place] [address] | | | | | [phone] | [phone] | | | | | | | [...] | | | | | [place] [address] | | | | | | [phone] | | | | | | | | +--------+---------+ + + + | 12/20/ | Office | Otolaryngology | Ulysses Genao MD | | | 2019 | Visit | | [address] | | | | | | [address] [place] | | | | | | [place] [address] | | | | | | [phone] | | | | | | | | +--------+---------+ + + + | 02/15/ | Office | Internal Medicine | Alanis, | | | 2019 | Visit | | MD Petrona | | | | | | [address] [place] | | | | | | [place] [address] | | | | | | [phone] | | | | | | | | +--------+---------+ + + + documented as of this encounter Visit Diagnoses Not on filedocumented in this encounter"
--- OUTSIDE RECORDS SUMMARY | ~2019-12-13 | XMS | Encounter Summary ---
Demographics + + + | Address | [address] | | | [place] [address] [...] Team Providers + +------+ + | Care Look Out Tower Fire Watcher Name | Role | Phone | + [...] [address] | | | | | | [place], [place] | | | | | | [address] | | | | | | [phone] | | | +--------+ + + + [...]
--- OUTSIDE RECORDS SUMMARY | ~2019-12-13 | XMS | Encounter Summary ---
Demographics + + + | Address | [address] | | | [place] [address] | + + + | Home Phone [...] Team Providers + +------+ + | Care Garbage Pick Up Man Name | Role | Phone | [...] Rd | | | | | | [place], [place] | | | | | | [address] | | | +--------+ + + + [...]
--- OUTSIDE RECORDS SUMMARY | ~2019-12-13 | XMS | Encounter Summary ---
Demographics + + + | Address | [address] | | | [place] [address] | + + + | Home Phone [...] Providers + +------+ + | Care Automotive Salesperson Name | Role | Phone | [...] + | 06/11/ | Refill | [facility] | Alanis, | Medication Refill | | 2017 | | MEDICINE [address] | MD Petrona | | | | | [place], | [address] [facility] | | | | | [place] [address] | [place] [address] | | | | | [phone] | [phone] | | | | | | | [...] | | | | | [place] [address] | | | | | | [phone] | | | | | | | | +--------+---------+ + + + | 12/20/ | Office | Otolaryngology | Ulysses Genao MD | | | 2019 | Visit | | [address] | | | | | | [address] [place] | | | | | | [place] [address] | | | | | | [phone] | | | | | | | | +--------+---------+ + + + | 02/15/ | Office | Internal Medicine | Alanis, | | | 2019 | Visit | | MD [place]rona | | | | | | [address] [place] | | | | | | [place] [address] | | | | | | [phone] | | | | | | | | +--------+---------+ + + + documented as of this encounter Visit Diagnoses Not on filedocumented in this encounter"
--- OUTSIDE RECORDS SUMMARY | ~2019-12-13 | XMS | Encounter Summary ---
Demographics + + + | Address | [address] | | | [place] [address] | + + + | Home Phone [...] Team Providers + +------+ + | Care Melting Operator Name | Role | Phone | [...] | at [place]ce [place] | [facility] | | | | | [address] | [place] [address] | | | | | [address] | | | | | | [address] [place], 2nd floor | | | | | | [place], [place] | | | | | | [address] | | | | | | [phone] | | | +--------+ + + + [...]
--- OUTSIDE RECORDS SUMMARY | ~2019-12-13 | XMS | Encounter Summary ---
Demographics + + + | Address | [address] | | | [place] [address] | + + + | Home Phone [...] Providers + +------+ + | Care Rock Cutter Name | Role | Phone | [...] + | 12/10/ | Office | [facility] | Alanis, | Elevated liver | | 2018 | Visit | MEDICINE [address] | MD Petrona | enzymes (Primary | | | | [address] [place], | [address] [place] | Dx); Limb cramps; | | | | [place] [address] | [place] [address] | Physical | | | | [phone] | [phone] | deconditioning; | | | | | [...] Refill Abdominal Pain Spasms legs and hips [facility] Belinda Meehan is a 57 y.o. [...] is interested in doing physical therapy in [place], pool therapy has helped in the pas [...] (See Comments) Confused and questionable for seizures Ykwlkmuinx-Mqjo-Fkehnmjl Cephalexin Hives Duloxetine Migraines and nausea Ketorolac Hives Morphine Swelling Ropinirole Hcl Hives Tramadol Hcl Nausea Only Khgusaphyb-Fvoe-Clehxyxy Hives and Rash Ciprofloxacin Hives and Rash [...] Note: Parts of this documentwere created using [employer] speech recognition software. As a r esult, [...] | | | | | [place] [address] | | | | | | [phone] | | | | | | | | +--------+---------+ + + + | 12/20/ | Office | Otolaryngology | Ulysses Genao MD | | | 2019 | Visit | | [address] | | | | | | [address] [place] | | | | | | [place] [address] | | | | | | [phone] | | | | | | | | +--------+---------+ + + + | 02/15/ | Office | Internal Medicine | Alanis, | | | 2019 | Visit | | MD [place]ron[place] | | | | | | [address] [place] | | | | | | [place] [address] | | | | | | [phone] | | | | | | | [...] | | | | mmol/L | [facility] | | | | [...] [address] | [place] | [phone] | | [facility] | | [address] | | | - LABORATORY | | | | + + + + + Magnesium (12/10/2017 10:30 AM PDT) + +-------+ + + + | Component | Value | Ref Range | Performed | Pathologist | | | | | At | Signature | + +-------+ + + + | Magnesium | 2.4 | 1.8 - 2.5 mg/dL | [facility] | | | | [...] [address] | [place] | [phone] | | [facility] | | [address] | | | - LABORATORY | | [...] | | | | > [address] [facility] | | | | | | recommends that a | | | | | | positive HCV antibody | | | | | | result be followed up | | | | | | with a HCV Nucleic Acid | | | | | | Amplification test | | | | | | ([id number]). | | | | + + + + + + + + | Specimen | + + | Blood | + + + + + | Narrative | Performed At | + + + | Performed at: - [address] [facility] [address], | REFERENCE LAB | | [place], [place] [id number] Conversion Developer: Bandar Gan MD, Phone: | [facility] | | [phone] | | + + + + + + + + | Performing | Address | City/State/Zipcode | Phone Number | | Organization | | | | + + + + + | [facility] | [address] | [place], [place] | [phone] | | [facility] | [facility] | [address] | | + + + + + [...]
--- OUTSIDE RECORDS SUMMARY | ~2019-12-13 | XMS | Encounter Summary ---
Demographics + + + | Address | [address] | | | [place] [address] | + + + | Home Phone [...] Providers + +------+ + | Care Industrial Arts Teacher Name | Role | Phone | [...] + | 09/30/ | Refill | [facility] | Alanis, | Medication Refill | | 2018 | | MEDICINE [address] | MD [place]rona | | | | | [place], | [address] [facility] | | | | | [place] [address] | [place] [address] | | | | | [phone] | [phone] | | | | | | | [...] | | | | | | ST [place] | | | | | | [place] [address] | | | | | | [phone] | | | | | | | | +--------+---------+ + + + | 12/20/ | Office | Otolaryngology | Ulysses Genao MD | | | 2019 | Visit | | [address] | | | | | | [place] | | | | | | [place] [address] | | | | | | [phone] | | | | | | | | +--------+---------+ + + + | 02/15/ | Office | Internal Medicine | Alanis, | | | 2019 | Visit | | MD [place]ron[place] | | | | | | [address] [place] | | | | | | [place] [address] | | | | | | [phone] | | | | | | | | +--------+---------+ + + + documented as of this encounter Visit Diagnoses Not on filedocumented in this encounter"
--- OUTSIDE RECORDS SUMMARY | ~2019-12-13 | XMS | Encounter Summary ---
Demographics + + + | Address | [address] | | | [place] [address] | + + + | Home Phone [...] Providers + +------+ + | Care Manager Organizational Name | Role | Phone | [...] | 06/25/ | Refill | [facility] | Alanis, | Medication Refill | | 2018 | | MEDICINE [address] | MD Petrona | | | | | [place], | [address] [place] | | | | | [place] [address] | [place] [address] | | | | | [phone] | [phone] | | | | | | | [...] | | | | | [place] [address] | | | | | | [phone] | | | | | | | | +--------+---------+ + + + | 12/20/ | Office | Otolaryngology | Ulysses Genao MD | | | 2019 | Visit | | [address] | | | | | | [address] [place] | | | | | | [place] [address] | | | | | | [phone] | | | | | | | | +--------+---------+ + + + | 02/15/ | Office | Internal Medicine | Alanis, | | | 2019 | Visit | | MD [place]rona | | | | | | [address] [place] | | | | | | [place] [address] | | | | | | [phone] | | | | | | | | +--------+---------+ + + + documented as of this encounter Visit Diagnoses + + | Diagnosis | + + | Nausea - Primary Nausea alone | + + documented in this encounter"
--- OUTSIDE RECORDS SUMMARY | ~2019-12-13 | XMS | Encounter Summary ---
Demographics + + + | Address | [address] | | | [place] [address] | + + + | Home Phone [...] Team Providers + +------+ + | Care Rig Site Engineer Name | Role | Phone | [...] | | | [facility] | [place], [place] | | | | | [address] | [address] | | | | | [address] | [phone] | | | | | Physician's | | | | | | Pavilion, 1st floor | | | | | | [place], [place] | | | | | | [address] | | | | | | [phone] | | | +--------+--------+ + + + [...]
--- OUTSIDE RECORDS SUMMARY | ~2019-12-13 | XMS | Encounter Summary ---
Demographics + + + | Address | [address] | | | [place] [address] | + + + | Home Phone [...] Providers + +------+ + | Care Debt Collector Name | Role | Phone | [...] | | | | Sara Kovacs | [facility] | | | | | Mailcode: Center | [place] [address] | | | | | for Health and | [phone] | | | | | Healing, [address] | | | | | | [place], [place] | | | | | | [address] | | | | | | [phone] | | | +--------+ + + + [...]
--- OUTSIDE RECORDS SUMMARY | ~2019-12-13 | XMS | Encounter Summary ---
Demographics + + + | Address | [address] | | | [place] [address] | + + + | Home Phone [...] Providers + +------+ + | Care Manager Operational Name | Role | Phone | + [...] | | | | [id number] | [place], [place] | | | | | [address] | [address] | | | | | [place], [place] | [phone] | | | | | [address] | | | | | | [phone] | | | +--------+ + + + [...]
--- OUTSIDE RECORDS SUMMARY | ~2019-12-13 | XMS | Encounter Summary ---
Demographics + + + | Address | [address] | | | [place] [address] | + + + | Home Phone [...] Providers + +------+ + | Care Body Finisher Name | Role | Phone | [...] + | 08/04/ | Refill | [facility] | Alanis, | Medication Refill | | 2017 | | MEDICINE [address] | MD [place] | | | | | [place], | [address] [facility] | | | | | [place] [address] | [place] [address] | | | | | [phone] | [phone] | | | | | | | [...] [facility] [address] | | | | | ST [place] | | | | | | [place] [address] | | | | | | [phone] | | | | | | | | +--------+---------+ + + + | 12/20/ | Office | Otolaryngology | Ulysses Genao MD | | | 2019 | Visit | | [address] | | | | | | [address] [place] | | | | | | [place] [address] | | | | | | [phone] | | | | | | | | +--------+---------+ + + + | 02/15/ | Office | Internal Medicine | Alanis, | | | 2019 | Visit | | MD [place] | | | | | | [address] [place] | | | | | | [place] [address] | | | | | | [phone] | | | | | | | | +--------+---------+ + + + documented as of this encounter Visit Diagnoses Not on filedocumented in this encounter"
--- OUTSIDE RECORDS SUMMARY | ~2019-12-13 | XMS | Encounter Summary ---
Demographics + + + | Address | [address] | | | [place] [address] | + + + | Home Phone [...] Providers + +------+ + | Care Aircraft Powertrain Repairer Name | Role | Phone | [...] | | [address] | [place] [address] | | | | | | [address] | Phone: | | | | | | [place], | [phone] | | | | | | [place] | Fax: | | | | | | [address] | [phone] | | | | | | Phone: | | | | | | | [phone] | | | | | | | Fax: | | | | | | | [phone] | | +--------+ + + + + [...] + + | 08/13/ | Telephone | [facility] | Alanis, | Medication Question | | 2018 | | MEDICINE [address] [place] [address] | MD [place]rona | | | | | [place], | [address] [facility] [place] | | | | | [place] [address] | [place] [address] | | | | | [phone] | [phone] | | | | | | | [...] PS TPatient returned phone call please call [phone]. elephone Encounter - Maggie Montoya LPN - [...] 08/13/2018 1:33 PM PSTCall to Frida in [place] spoke with pharmacist Alek, states p atient [...] a return phone call. Katelynn leon call [phone]. P STdocumented in this encounter Plan of [...] | | | | | | [place] [address] | | | | | | [phone] | | | | | | | | +--------+---------+ + + + | 12/20/ | Office | Otolaryngology | Ulysses Genao MD | | | 2019 | Visit | | [address] | | | | | | [address] [place] | | | | | | [place] [address] | | | | | | [phone] | | | | | | | | +--------+---------+ + + + | 02/15/ | Office | Internal Medicine | Alanis, | | | 2019 | Visit | | MD [place] | | | | | | [address] [place] | | | | | | [place] [address] | | | | | | [phone] | | | | | | | | +--------+---------+ + + + + + +--------+ + + | Name | Type | Priori | Associated Diagnoses | Order Schedule | | | | ty | | | + + +--------+ + + | * TAHIR NDIAYE | Outpatient | Routin | Nausea [...]
--- OUTSIDE RECORDS SUMMARY | ~2019-12-13 | XMS | Encounter Summary ---
Demographics + + + | Address | [address] | | | [place] [address] | + + + | Home Phone [...] Providers + +------+ + | Care Automatic Pinsetter Mechanic Name | Role | Phone | [...] + + | 10/05/ | Telephone | [facility] | Alanis, | Injections | | 2019 | | MEDICINE [address] | MD [place] | | | | | [place], | [address] [facility] | | | | | [place] [address] | [place] [address] | | | | | [phone] | [phone] | | | | | | | [...] | | | | | | [place] [address] | | | | | | [phone] | | | | | | | | +--------+---------+ + + + | 12/20/ | Office | Otolaryngology | Ulysses Genao MD | | | 2019 | Visit | | [address] | | | | | | [address] [place] | | | | | | [place] [address] | | | | | | [phone] | | | | | | | | +--------+---------+ + + + | 02/15/ | Office | Internal Medicine | Alanis, | | | 2019 | Visit | | MD [place] | | | | | | [address] [place] | | | | | | [place] [address] | | | | | | [phone] | | | | | | | | +--------+---------+ + + + documented as of this encounter Visit Diagnoses Not on filedocumented in this encounter"
--- OUTSIDE RECORDS SUMMARY | ~2019-12-13 | XMS | Encounter Summary ---
Demographics + + + | Address | [address] | | | [place] [address] | + + + | Home Phone [...] Team Providers + +------+ + | Care Aml Analyst Name | Role | Phone | [...] | | | | Clinical Nutrition | [place], [place] | | | | | [address] | [address] | | | | | Loop Mailcode: [id number] | [phone] | | | | | Outpatient Clinic | | | | | | [facility] | | | | | | [place] [address] | | | | | | [phone] | | | +--------+ + + + [...] + + + | [facility] | [address] | [place] [address] | | | LABORATORY | | | [...] + + + + + | [facility] | [address] | [place] [address] | | | LABORATORY | | | [...] DEPARTMENT OF | [address] | [place] [address] | | | PATHOLOGY | [address] | | | + + + + + | [place] DEPARTMENT OF | [address] | [place] [address] | | | PATHOLOGY | [address] | | | + + + + + documented in this encounter Visit Diagnoses Not on filedocumented in this encounter"
--- OUTSIDE RECORDS SUMMARY | ~2019-12-13 | XMS | Encounter Summary ---
Demographics + + + | Address | [address] | | | [place] [address] | + + + | Home Phone [...] Providers + +------+ + | Care Veneer Marker Name | Role | Phone | [...] + + | 03/03/ | Office | [facility] [...] | Leg Pain; | | | | [facility] | | Radiculitis, | | | | and Healing, | | Lumbosacral; | | | | Building | | Encounter for | | | | Floor [place], [place] | | Long-Term (Current) | | | | [address] | | Use of Opioids; Hx | | | | [phone] | | Arthroplasty of both | | [...] Meehan is a 48 y.o. female [facility] Comprehensive [...] be ing reviewed by Dr Constantino SHEEHAN travelift operator. MRI of the brain and it was normal A Brief Pain Inventory and a pain drawing has be completed, which I reviewed. [facility] Brief Pain Inventory: (ten= worst possible [...] Ogden PhD TPI every 5-6 months with [facility] Rheumatology Hilda Saenz Review of [...] history, fam bijan history, or social history. [facility] Encorinology [facility] ACNP ThuNovember 12, 2007 Assessment: [...] continue to discuss with her options at [facility] with, hopefully, coordinatio n of [...] 300 mg) by oral route once daily ciqanpcqar-nqqvkxrpkkhay-ryjpbtmf (FIORICET) 50-325-40 mg Oral Tablet take 2 [...] DISK BULGE. Transcribed By: Armaan Mata : [id number] : 1442 Approved By: Radiologist: Physical Examination: [...] with any concerns or questions. DELFINA MOLINA [facility] Mail code CH 4P [facility] [address] [place] [address] Ailyn Foster - 03/03/20 08 10:24 [...]
--- OUTSIDE RECORDS SUMMARY | ~2019-12-13 | XMS | Encounter Summary ---
[...] + +------+ + | Care Home Care Scheduler Name | Role | Phone | [...] as of this encounter Progress Notes Interface, Hip Hop Dancer In - 01/12/2005 6:20 AM PDT JenniferBelinda garner [id number] MED REC NUMBER: [id number] NAME : Belinda Meehan DATE : 1960 DISCHARGE ASSESSMENT AND CASE MANAGEMENT NOTES Chart Reviewed: 2004-12-04 15:29:00 Clerical Aide: Lou Jordan RN Preadmission living situation: family If facilty, name: Additional needs assessment: Case Management Initial Assessment and Ongoing Notes: 12/04/2004 15:29 Rec'd referral from IR printout. Pt presenti jen for panniculectomy per Dr. Chris Padgett 12/06/2004. ----- ------- Living Situation: Pt lives w/ her son, Sree in [place], [place]. Pt also has a caregiver from [employer] come in for 8-9 hours per day when her son is not home. Transportation: Pat w/ [employer] [facility] will take pt home (H) (C). Home Health: Pt has an RN from [employer] [facility] visit once a month for an [...] [facility] and Dr. William Meeks [facility] metabolic disorder clinic. Narrative: Pt asked if [...] or concerns, [place]. [place] [id number] documented i n this encounter Plan of Treatment Not on filedocumented as of this encounter Visit Diagnoses Not on filedocumented in this encounter"
--- OUTSIDE RECORDS SUMMARY | ~2019-12-13 | XMS | Encounter Summary ---
Demographics + + + | Address | [address] | | | [place] [address] [...] Team Providers + +------+ + | Care Player Development Manager Name | Role | Phone [...] | | 2006 | Visit | [facility] | [address] | Myelopathy, Lumbar | | | | [place] [address] [place], | Region; Herniated | | | | Mychal [place] Mailcode: | [place] [address] | Lumbar | | | | CH15P [place] [facility] | | Intervertebral Disc | | | | Health and Healing, | | L4-5; Neck Pain; | | | | | | Fibromyalgia | | | | Floor [place], [place] | | syndrome 729.1 | | | | [address] | | | | | | [phone] | | | +--------+---------+ + + + [...] Medicare Progress Note Date: 09/23/2006 Belinda Meehan [id number]. 1960 Start of Care: 06/23/2006 Referring Provider: [...] patient has increased her walking time at [employer] to 30-40 minutes daily, no t able [...]
--- OUTSIDE RECORDS SUMMARY | ~2019-12-13 | XMS | Encounter Summary ---
Demographics + + + | Address | [address] | | | [place] [address] | + + + | Home Phone [...] Team Providers + +------+ + | Care Cath Lab Radiological Technologist Name | Role | Phone | [...] | | | [facility] | [place], [place] | | | | | [address] | [address] | | | | | [address] | [phone] | | | | | Physician[facility] Pavilion | | | | | | Physician's | | | | | | Pavilion [place], | | | | | | [place] [address] | | | | | | [phone] | | | +--------+ + + + [...]
--- OUTSIDE RECORDS SUMMARY | ~2019-12-13 | XMS | Encounter Summary ---
Demographics + + + | Address | [address] | | | [place] [address] | + + + | Home Phone [...] Providers + +------+ + | Care Service Unit Operator Oil Well Name | Role | Phone | + [...] Densitometry | | MD Beto | Density [facility] | | | | | Osteoporosis | [address] | [address] | | | | | Procedures | Ave | Naeem Mcrae | | | | | CONSULT TO | [place], [place] | Rd Mailcode: | | | | | BONE | [address] | [address] | | | | | DENSITOMETRY | Phone: | Naeem De La Rosa | | | | | | [phone] | [place], [place] | | | | | | Fax: | [address] | | | | | | [phone] | Phone: | | | | | | | [phone] | | | | | | | Fax: | | | | | | | [phone] | +--------+--------+ + + + + Reason [...] Sara Kovacs | | | | | [facility] | [place], [place] | | | | | [address] | [address] | | | | | [address] | [phone] | | | | | Physician[facility] Pavilion | | | | | | Physician's | | | | | | Pavilion [place], | | | | | | [place] [address] | | | | | | [phone] | | | +--------+ + + + [...]
--- OUTSIDE RECORDS SUMMARY | ~2019-12-13 | XMS | Encounter Summary ---
Demographics + + + | Address | [address] | | | [place] [address] | + + + | Home Phone [...] Providers + +------+ + | Care Research Investigator Name | Role | Phone | [...] + + | 01/04/ | Telephone | [facility] | Alanis, | Skin Irritation | | 2017 | | MEDICINE [address] | MD Petrona | | | | | MALIK ZHAO, | [address] [facility] | | | | | [place] [address] | [place] [address] | | | | | [phone] | [phone] | | | | | | | [...] silvadene for a burn? elephone Encounter - Elena Juliane - 01/04/2018 5:03 PM PDTPatient called stating [...] | | [facility] [address] | | | | | | [place] | | | | | | [place] [address] | | | | | | [phone] | | | | | | | | +--------+---------+ + + + | 12/20/ | Office | Otolaryngology | Ulysses Genao MD | | | 2019 | Visit | | [address] | | | | | | [address] [place] | | | | | | [place] [address] | | | | | | [phone] | | | | | | | | +--------+---------+ + + + | 02/15/ | Office | Internal Medicine | Alanis, | | | 2019 | Visit | | MD Petrona | | | | | | [address] [place] | | | | | | [place] [address] | | | | | | [phone] | | | | | | | | +--------+---------+ + + + documented as of this encounter Visit Diagnoses + + | Diagnosis | + + | Tinea cruris - Primary Dermatophytosis of groin and perianal area | + + documented in this encounter"
--- OUTSIDE RECORDS SUMMARY | ~2019-12-13 | XMS | Encounter Summary ---
Demographics + + + | Address | [address] | | | [place] [address] | + + + | Home Phone [...] Team Providers + +------+ + | Care Methods Analyst Data Processing Name | Role | Phone [...] [id number] | | | | | | [place], [place] | | | | | | [address] | | | | | | [phone] | | | +--------+ + + + [...]
--- OUTSIDE RECORDS SUMMARY | ~2019-12-13 | XMS | Encounter Summary ---
Demographics + + + | Address | [address] | | | [place] [address] | + + + | Home Phone [...] Team Providers + +------+ + | Care Folder Stitcher Operator Name | Role | Phone | + +------+ + | Sulaiman Carrera MD | PCP | | + +------+ + Encounter Details +--------+ + + + + | Date | Type | Department | Care Team | Description | +--------+ + + + + | 02/08/ | Telephone | [facility]ive [facility] | Chris Padgett, | | | 2008 | | [place] [address] | [address] [facility] | | | | | Bethanie Mailcode: CH4S | [address] | | | | | [facility] | [place], [place] | | | | | and Healing, | [address] | | | | | [place] [address], [address]th | [phone] | | | | | Floor [place], [place] | | | | | | [address] | | | | | | [phone] | | | +--------+ + + + [...]
--- OUTSIDE RECORDS SUMMARY | ~2019-12-13 | XMS | Encounter Summary ---
Demographics + + + | Address | [address] | | | [place] [address] | + + + | Home Phone [...] Providers + +------+ + | Care Channel Specialist Name | Role | Phone | [...] - Disregard | | | | [facility] | | | | | | [address] | | | | | | Mailcode: CH15P | | | | | | [facility] | | | | | | and [place], | | | | | | [facility] | | | | | | [place], [place] | | | | | | [address] | | | | | | [phone] | | | +--------+ + + + [...]
--- OUTSIDE RECORDS SUMMARY | ~2019-12-13 | XMS | Encounter Summary ---
Demographics + + + | Address | [address] | | | [place] [address] | + + + | Home Phone [...] Team Providers + +------+ + | Care Syrup Filterer Name | Role | Phone | [...] [id number] | | | | | | [place], [place] | | | | | | [address] | | | | | | [phone] | | | +--------+ + + + [...]
--- OUTSIDE RECORDS SUMMARY | ~2019-12-13 | XMS | Encounter Summary ---
Demographics + + + | Address | [address] | | | [place] [address] | + + + | Home Phone [...] Providers + +------+ + | Care Bank Vault Attendant Name | Role | Phone [...] | | | | | | | [place], [place] | | | | | | | [address] | | | | | | | Phone: | | | | | | | [phone] | | | | | | | Fax: | | | | | | | [phone] | +--------+--------+ + + + + Encounter [...] | | | [facility] | [place], [place] | Metabolic syndrome | | | | [address] | [address] | X 250.80; Essential | | | | [address] | [phone] | hypertension 401.9; | | | | Physician's Pavilion | | Fibromyalgia | | | | Physician's | | syndrome 729.1 | | | | Pavilion [place], | | | | | | [place] [address] | | | | | | [phone] | | | +--------+---------+ + + + [...] by oral route once daily at bedti il as needed Oxycodone HCl (OXYCONTIN) 40 mg [...]
--- OUTSIDE RECORDS SUMMARY | ~2019-12-13 | XMS | Encounter Summary ---
Demographics + + + | Address | [address] | | | [place] [address] | + + + | Home Phone [...] Providers + +------+ + | Care Mold Cleaner Name | Role | Phone | [...] + | 04/26/ | Refill | [facility] | Alanis, | Medication Refill | | 2017 | | MEDICINE [address] | MD Petrona | | | | | MALIK ZHAO, | [address] [facility] | | | | | [place] [address] | [place] [address] | | | | | [phone] | [phone] | | | | | | | [...] | | [facility] [address] | | | | | | ST [place] | | | | | | [place] [address] | | | | | | [phone] | | | | | | | | +--------+---------+ + + + | 12/20/ | Office | Otolaryngology | Ulysses Genao MD | | | 2019 | Visit | | [address] | | | | | | [address] [place] | | | | | | [place] [address] | | | | | | [phone] | | | | | | | | +--------+---------+ + + + | 02/15/ | Office | Internal Medicine | Alanis, | | | 2019 | Visit | | MD Petrona | | | | | | [address] [place] | | | | | | [place] [address] | | | | | | [phone] | | | | | | | | +--------+---------+ + + + documented as of this encounter Visit Diagnoses Not on filedocumented in this encounter"
--- OUTSIDE RECORDS SUMMARY | ~2019-12-13 | XMS | Encounter Summary ---
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 Provider: DELFINA MOLINA ANP Nathalia Keyes - 007 12:04 PM PST Physical Therapy Medicare Progress Note Date: 08/12/2006 Belinda Meehan [id number]. 1960 Start of Care: 06/23/2006 Referring Provider: [...] + + +--------+ + + | [facility] | Procedures | Routin | Spondylosis [...] + + +--------+ + + | [facility] | Procedures | Routin | Spondylosis [...]
--- OUTSIDE RECORDS SUMMARY | ~2019-12-13 | XMS | Encounter Summary ---
Demographics + + + | Address | [address] | | | [place] [address] | + + + | Home Phone [...] Team Providers + +------+ + | Care Piping Design Specialist Name | Role | Phone [...] | | | | Clinical Nutrition | [place], [place] | | | | | [address] | [address] | | | | | Loop Mailcode: OPC5 | [phone] | | | | | Outpatient Clinic | | | | | | [facility] | | | | | | [place] [address] | | | | | | [phone] | | | +--------+ + + + [...] | | | | performed by [facility] | | | | | | Laboratories. | | | | + + + + + + + + | Specimen | + + | | + + + + + + + | Performing | Address | City/State/Zipcode | Phone Number | | Organization | | | | + + + + + | [facility] | [address] | [place], [place] | | | [facility] | | [address] | | + + + + + HEMOGLOBIN A1C (05/31/2002 3:21 PM PST) + + + + + + | Component | Value | Ref Range | Performed | Pathologist | | | | | At | Signature | + + + + + + | HEMOGLOBIN | 6.0Comment: Test | <7.1 % | | | | A1C | performed by [place] | | | | | | [facility] | | | | [...] + | [facility] | [address] | [place] [address] | | | LABORATORY | | | [...] + + | [facility] DEPARTMENT OF | [address] | [place] [address] | | | PATHOLOGY | [address] | | | + + + + + | [facility] DEPARTMENT OF | [address] | [place] [address] | | | PATHOLOGY | [address] [...] [facility] | [address] | [place] [address] | | | PATHOLOGY | [address] | | | + + + + + | [facility] | [address] [facility] | [place] [address] | | | PATHOLOGY | [address] | | | + + + + + documented in this encounter Visit Diagnoses Not on filedocumented in this encounter"
--- OUTSIDE RECORDS SUMMARY | ~2019-12-13 | XMS | Encounter Summary ---
Demographics + + + | Address | [address] | | | [place] [address] | + + + | Home Phone [...] Organization | [facility] | | | [...] Providers + +------+ + | Care Green Inspector Name | Role | Phone | [...] + + | 07/20/ | Telephone | [facility] | Alanis, | Immunizations | | 2018 | | MEDICINE [address] [place] [address] | MD Petrona | | | | | MAL[place], | [address] [facility] | | | | | [place] [address] | [place] [address] | | | | | [phone] | [phone] | | | | | | | [...] requesting dexascan results to be done at [facility], referral submitted Telephone Encounter - Petrona Thapa MD - 07/23/2018 9:11 AM PSTLast bone den byron showed osteopenia. Before continuing with Reclast infusions, I think it would be benef icial to get an updated bone density test to see where she is at and whether she needs thera py or not. I have ordered a bone density test for her. elephone Encounter - Maggie Montoya LPN - 07/22/2018 2:0 2 PM PSTReport placed on MD queenk 2: 03 PM PSTTelephone Encounter - Petrona Thapa MD - 07/21/2018 8:40 AM PSTI'm trying to locate her last bone density scan from [facility] but I don't see it, other than [...] regarding message. Please call her back at [phone]. P STTelephone Encounter - Maggie Montoya LPN [...] calling in to talk with nurse ramy ut a osteoporosis injection, patient can be reached at [phone] signed by Sia Bai at 07/20/2018 9:51 [...] | | | | | [place] [address] | | | | | | [phone] | | | | | | | | +--------+---------+ + + + | 12/20/ | Office | Otolaryngology | Ulysses Genao MD | | | 2019 | Visit | | [address] | | | | | | [address] [place] | | | | | | [place] [address] | | | | | | [phone] | | | | | | | | +--------+---------+ + + + | 02/15/ | Office | Internal Medicine | Alanis, | | | 2019 | Visit | | MD Petrona | | | | | | [address] [place] | | | | | | [place] [address] | | | | | | [phone] | | | | | | | [...]
--- OUTSIDE RECORDS SUMMARY | ~2019-12-13 | XMS | Encounter Summary ---
Demographics + + + | Address | [address] | | | [place] [address] | + + + | Home Phone [...] Team Providers + +------+ + | Care Bulk Intake Worker Name | Role | Phone | [...] as of this encounter Progress Notes Interface, Color Stripper In - 01/11/2005 8:56 PM PDTClinic Date: [...] bypass surgery and will be admitted to [facility] for this procedure on November 22, 2003. [...] Ester Romero M.D. Issac Meeks M.D. / [id number] / [id number] / [id number] / [id number] Tdocumented in this encounter Plan of Treatment Not on filedocumented as of this encounter Visit Diagnoses Not on filedocumented in this encounter"
--- OUTSIDE RECORDS SUMMARY | ~2019-12-13 | XMS | Encounter Summary ---
Demographics + + + | Address | [address] | | | [place] [address] | + + + | Home Phone [...] Providers + +------+ + | Care Hot End Operator Name | Role | Phone | [...] + + | 05/06/ | Telephone | [facility] | Alanis, | Other | | 2016 | | MEDICINE [address] | MD Petrona | | | | | [place], | [address] [facility] | | | | | [place] [address] | [place] [address] | | | | | [phone] | [phone] | | | | | | | [...] 05/06/2017 8:43 AM PSTContact/Caller: Belinda Contact Number: [phone] Provider/Nurse: Emmy Reason for Call: Pt returning call for nurse believes it was regarding x rays. stated she c ould be reached at [phone]. Last Appointment: 05/04/17 Next Appointment: 06/01/17 documented [...] | | | | | | [place] [address] | | | | | | [phone] | | | | | | | | +--------+---------+ + + + | 12/20/ | Office | Otolaryngology | Ulysses Genao MD | | | 2019 | Visit | | [address] | | | | | | [address] [place] | | | | | | [place] [address] | | | | | | [phone] | | | | | | | | +--------+---------+ + + + | 02/15/ | Office | Internal Medicine | Alanis, | | | 2019 | Visit | | MD Petrona | | | | | | [address] [place] | | | | | | [place] [address] | | | | | | [phone] | | | | | | | | +--------+---------+ + + + documented as of this encounter Visit Diagnoses Not on filedocumented in this encounter"
--- OUTSIDE RECORDS SUMMARY | ~2019-12-13 | XMS | Encounter Summary ---
Demographics + + + | Address | [address] | | | [place] [address] | + + + | Home Phone [...] + +------+ + | Care Correction Officer [facility] [place] [facility] Name | Role | Phone | + [...] | phalanx of | [address] | [address] | | | | | left great | [place], | Phone: | | | | | toe, initial | [place] | [phone] | | | | | encounter | [address] | Fax: | | | | | | Phone: | [phone] | | | | | | [phone] | | | | | | | Fax: | | | | | | | [phone] | | +--------+ + + + + [...] phalanx of left | | | | [place] [address] | [place] [address] | great toe, initial | | | | [phone] | [phone] | encounter (Primary | | | | [...] | [facility] [address] | | | | | | [address] [place] | | | | | | [place] [address] | | | | | | [phone] | | | | | | | | +--------+---------+ + + + | 12/20/ | Office | Otolaryngology | Ulysses Genao MD | | | 2019 | Visit | | [address] | | | | | | [address] [place] | | | | | | [place] [address] | | | | | | [phone] | | | | | | | | +--------+---------+ + + + | 02/15/ | Office | Internal Medicine | Alanis, | | | 2019 | Visit | | MD Petrona | | | | | | [address] [place] | | | | | | [place] [address] | | | | | | [phone] | | | | | | | [...]
--- OUTSIDE RECORDS SUMMARY | ~2019-12-13 | XMS | Encounter Summary ---
Demographics + + + | Address | [address] | | | [place] [address] | + + + | Home Phone [...] Phone | + +------+ + | Petrona Thpaa | PCP | | | MD | [...] + + | 01/04/ | Telephone | [facility] [place] | Ulysses Genao MD | Other | | 2017 | | OTOLARYNGOLOGY [address] | [address] | | | | | [address] | [address] [facility] | | | | | [place], [place] | [place] [address] | | | | | [address] | [phone] | | | | | [phone] | | | +--------+ + + + [...] Miscellaneous Notes Telephone Encounter - Louise Randall Washing Machine Assembler - 01/04/2018 2:48 PM PDTClosin g phone note 2: 57 PM PDTTelephone Encounter - Teja Hussein - 01/04/2018 1:08 PM PDTName of Caller: Kaleigh marcelino from [facility] out patient Name of Patient: Belinda Meehan Reason for call: [facility] was called to check the status on referral. Pt has an appointment at 10 am tomorrow and they can not see her without the referral. Informed [facility] that referral is pending referral. She would like a call when that is approved. Provider/Nurse: Dr. Genao Call back number: [phone] documented in this encou nter Plan of [...] | | | | | [place] [address] | | | | | | [phone] | | | | | | | | +--------+---------+ + + + | 12/20/ | Office | Otolaryngology | Ulysses Genao MD | | | 2019 | Visit | | [address] | | | | | | [address] [place] | | | | | | [place] [address] | | | | | | [phone] | | | | | | | | +--------+---------+ + + + | 02/15/ | Office | Internal Medicine | Alanis, | | | 2019 | Visit | | MD Petrona | | | | | | [address] [place] | | | | | | [place] [address] | | | | | | [phone] | | | | | | | | +--------+---------+ + + + documented as of this encounter Visit Diagnoses Not on filedocumented in this encounter"
--- OUTSIDE RECORDS SUMMARY | ~2019-12-13 | XMS | Encounter Summary ---
Demographics + + + | Address | [address] | | | [place] [address] | + + + | Home Phone [...] Providers + +------+ + | Care Rn Med Surg Name | Role | Phone [...] + +--------+ + + + | [facility] GI TRACT IMAGING, | | 05/12/2006 | | | | INTRALUMINAL | | | | | + +--------+ + + + documented in this encounter Visit Diagnoses Not on filedocumented in this encounter"
--- OUTSIDE RECORDS SUMMARY | ~2019-12-13 | XMS | Encounter Summary ---
Demographics + + + | Address | [address] | | | [place] [address] | + + + | Home Phone [...] Providers + +------+ + | Care Windows Application Developer Name | Role | Phone | + +------+ + PCP | Unavailable | + +------+ + Encounter Details +--------+ + + + + | Date | Type | Department | Care Team | Description | +--------+ + + + + | 11/22/ | Results | | Other, Faculty | | | 2004 | Only | | [phone] | | +--------+ + + + + [...] + | Ordered by SYEDA MCKENZIE | INSU | | | DEPARTMENT OF | | | PATHOLOGY | + + + + + + + + | Performing | Address | City/State/Zipcode | Phone Number | | Organization | | | | + + + + + | [facility] DEPARTMENT OF | [address] | [place] [address] | | | PATHOLOGY | [address] | | | + + + + + | [place] DEPARTMENT OF | [address] | [place] [address] | | | PATHOLOGY | [address] [...] | + + + + + | [facility] DEPARTMENT | [address] | [place] [address] | | | PATHOLOGY | [address] | | | + + + + + | [facility] | [address] | [place] [address] | | | PATHOLOGY | [address] [...] + | [facility] | [address] | [place] [address] | | | PATHOLOGY | [address] | | | + + + + + | [facility] | [address] | [place] [address] | | | PATHOLOGY | [address] [...] DEPARTMENT OF | [address] | [place] [address] | | | PATHOLOGY | [address] | | | + + + + + | [facility] DEPARTMENT OF | [address] | [place] [address] | | | PATHOLOGY | [address] [...] DEPARTMENT OF | [address] | [place] [address] | | | PATHOLOGY | [address] | | | + + + + + | [facility] DEPARTMENT OF | [address] | [place] [address] | | | PATHOLOGY | [address] [...] | + + + + + | [facility] DEPARTMENT | [address] | [place] [address] | | | PATHOLOGY | [address] | | | + + + + + | [facility] DEPARTMENT OF | [address] | [place] [address] | | | PATHOLOGY | [address] | | | + + + + + documented in this encounter Visit Diagnoses Not on filedocumented in this encounter"
--- OUTSIDE RECORDS SUMMARY | ~2019-12-13 | XMS | Encounter Summary ---
Demographics + + + | Address | [address] | | | [place] [address] | + + + | Home Phone [...] Providers + +------+ + | Care Route Jumper Name | Role | Phone | [...] | | | | | | [place], | | | | | | | [place] | | | | | | | [address] | | | | | | | Phone: | | | | | | | [phone] | | | | | | | Fax: | | | | | | | [phone] | +--------+--------+ + + + + Encounter Details +--------+---------+ + + + | Date | Type | Department | Care Team | Description | +--------+---------+ + + + | 07/10/ | Office | [facility] | Eliezer Ruano, | Abdominal Pain, | | 2008 | Visit | [place] [address] | [address] | dumping syndrome Hx | | | | Ave Mailcode: CH4S | [address] | of gastric bypass | | | | [facility] | [place], [place] | (Primary Dx) | | | | and Healing, | [address] | | | | | Building | [phone] | | | | | Floor [place], [place] | | | | | | [address] | | | | | | [phone] | | | +--------+---------+ + + + [...] and plan of care. ELIEZER RUANO MD [address] Mailcode: [place] [address] Yuriy Mayo MD - 06/16 [...] (Ciprofloxacin) Tramadol Morphine IM ( only in [facility] [...] 300 mg) by oral route once daily axfhokngrf-zoyisheyedyms-wimgvmtm (FIORICET) 50-325-40 mg Oral Tablet take 2 [...] 278 01/18 Paniculectomy Hx lumbar fusion 05/2008 L1-L1gystol with bone spur removals Review of Systems: [...]
--- OUTSIDE RECORDS SUMMARY | ~2019-12-13 | XMS | Encounter Summary ---
[...] + +------+ + | Care Quality Assurance Tester Name | Role | Phone | [...]
--- OUTSIDE RECORDS SUMMARY | ~2019-12-13 | XMS | Encounter Summary ---
Demographics + + + | Address | [address] | | | [place] [address] | + + + | Home Phone [...] Providers + +------+ + | [facility] Office Supervisor Name | Role | Phone [...] + + | 09/13/ | Telephone | [facility] | Alanis, | Appointment | | 2018 | | MEDICINE [address] | MD [place] | | | | | [place], | [address] [facility] | | | | | [place] [address] | [place] [address] | | | | | [phone] | [phone] | | | | | | | [...] | | | | | | [place] [address] | | | | | | [phone] | | | | | | | | +--------+---------+ + + + | 12/20/ | Office | Otolaryngology | Ulysses Genao MD | | | 2019 | Visit | | [address] | | | | | | [address] [place] | | | | | | [place] [address] | | | | | | [phone] | | | | | | | | +--------+---------+ + + + | 02/15/ | Office | Internal Medicine | Alanis, | | | 2019 | Visit | | MD [place] | | | | | | [address] [place] | | | | | | [place] [address] | | | | | | [phone] | | | | | | | | +--------+---------+ + + + documented as of this encounter Visit Diagnoses Not on filedocumented in this encounter"
--- OUTSIDE RECORDS SUMMARY | ~2019-12-13 | XMS | Encounter Summary ---
Demographics + + + | Address | [address] | | | [place] [address] | + + + | Home Phone [...] Team Providers + +------+ + | Care Saloon Keeper Name | Role | Phone | [...] + | 07/06/ | Telephone | [facility] | Alanis, | Transfer Orders | | 2018 | | MEDICINE [address] | MD [place] | | | | | [place], | [address] [place] | | | | | [place] [address] | [place] [address] | | | | | [phone] | [phone] | | | | | | | [...] teresita persaud sent to [facility] in [facility]. Please advise. documented in this encounter [...] | | | | | [place] [address] | | | | | | [phone] | | | | | | | | +--------+---------+ + + + | 12/20/ | Office | Otolaryngology | Ulysses Genao MD | | | 2019 | Visit | | [address] | | | | | | [address] [place] | | | | | | [place], [place] [address] | | | | | | [phone] | | | | | | | | +--------+---------+ + + + | 02/15/ | Office | Internal Medicine | Alanis, | | | 2019 | Visit | | MD [place] | | | | | | [address] [place] | | | | | | [place], [place] [address] | | | | | | [phone] | | | | | | | | +--------+---------+ + + + documented as of this encounter Visit Diagnoses Not on filedocumented in this encounter"
--- OUTSIDE RECORDS SUMMARY | ~2019-12-13 | XMS | Encounter Summary ---
Demographics + + + | Address | [address] | | | [place] [address] | + + + | Home Phone [...] as of this encounter Progress Notes Interface, Log Haul Chain Feeder In - 03/26/2006 1:05 AM [facility] [place] [address] [place], [place] [address] or February 22, 2001 Pedrito Gutierrez M.D. [facility] [address] [place] [address] RE: BELINDA MEEHAN MR #: [id number] Dear [...] regarding this patient. Sincerely, Issac Meeks M.D. equity holder Division of Endocrinology, Diabetes, and Clinical Cigarette Catcher, Metabolic Disorders Clinic PBD / HS [id number] / [id number] / [id number] / [id number] signed by Interface, Log Haul Chain Feeder In at 03/26/2006 1:05 AM PDTdocume nted in this encounter Plan of Treatment Not on filedocumented as of this encounter Visit Diagnoses Not on filedocumented in this encounter
--- OUTSIDE RECORDS SUMMARY | ~2019-12-13 | XMS | Encounter Summary ---
Demographics + + + | Address | [address] | | | [place] [address] | + + + | Home Phone [...] Team Providers + +------+ + | Care Extension Work Director Name | Role | Phone | [...] [address] | | | | | [facility] | [place], [place] | | | | | and Healing, | [address] | | | | | [facility] 1, [facility] | [phone] | | | | | Floor [place], [place] | | | | | | [address] | | | | | | [phone] | | | +--------+ + + + [...]
--- OUTSIDE RECORDS SUMMARY | ~2019-12-13 | XMS | Encounter Summary ---
Demographics + + + | Address | [address] | | | [place] [address] | + + + | Home Phone [...] Team Providers + +------+ + | Care Spareribs Trimmer Name | Role | Phone | + +------+ + | Pet[place] Thapa | PCP | | | MD | | | + +------+ + Reason for Visit + +--------+ + | Reason | Onset | Comments | | | Date | | + +--------+ + | Medication Refill | 04/29/ | | | Assistance | 2017 | | + +--------+ + Encounter Details +--------+ + + + + | Date | Type | Department | Care Team | Description | +--------+ + + + + | 04/29/ | Telephone | [facility] | Alanis, | Medication Refill | | 2017 | | [facility] [address] | MD [place] | Assistance | | | | [place], | [address] | | | | | [place] [address] | [place] [address] | | | | | [phone] | [phone] | | | | | | | [...] | | | | | [place] [address] | | | | | | [phone] | | | | | | | | +--------+---------+ + + + | 12/20/ | Office | Otolaryngology | Ulysses Genao MD | | | 2019 | Visit | | [address] | | | | | | [address] | | | | | | [place] [address] | | | | | | [phone] | | | | | | | | +--------+---------+ + + + | 02/15/ | Office | Internal Medicine | Alanis, | | | 2019 | Visit | | MD [place] | | | | | | [address] | | | | | | [place] [address] | | | | | | [phone] | | | | | | | | +--------+---------+ + + + documented as of this encounter Visit Diagnoses Not on filedocumented in this encounter"
--- OUTSIDE RECORDS SUMMARY | ~2019-12-13 | XMS | Encounter Summary ---
Demographics + + + | Address | [address] | | | [place] [address] | + + + | Home Phone [...] Providers + +------+ + | Care Ski Base Trimmer Name | Role | Phone | [...] + + | 01/11/ | Office | 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 Belinda Meehan is here today for a [...] until surgery pending 02/13 12/19. DELFINA MOLINA [facility] Comprehensive Pain Center Mail code CH 4P [facility] and [address] [address] Ailyn Foster - 01/12/20 07 [...]
--- OUTSIDE RECORDS SUMMARY | ~2019-12-13 | XMS | Encounter Summary ---
Demographics + + + | Address | [address] | | | [place] [address] | + + + | Home Phone [...] Abdominal pain | | 2005 | | [place] [address] | | | | | | [address] | | | | | | Mailcode: [id number] | | | | | | Physician's Sh[facility]ila | | | | | | [place], [place] | | | | | | [address] | | | | | | [phone] | | | +--------+ + + + [...]
--- OUTSIDE RECORDS SUMMARY | ~2019-12-13 | XMS | Encounter Summary ---
Demographics + + + | Address | [address] | | | [place] [address] | + + + | Home Phone [...] Providers + +------+ + | Care Patrol Police Lieutenant Name | Role | Phone | [...] | | | [address] | [address] | | | | | | [place], | Phone: | | | | | | [place] | [phone] | | | | | | [address] | | | | | | | Phone: | | | | | | | [phone] | | | | | | | Fax: | | | | | | | [phone] | | +--------+ + + + + + Encounter Details +--------+ + + + + | Date | Type | Department | Care Team | Description | +--------+ + + + + | 06/18/ | Orders Only | [facility] | Alanis, | Multiple food | | 2019 | | MEDICINE [address] | MD [place] | allergies (Primary | | | | [address] [place], | [address] [place] | Dx) | | | | [place] [address] | [place] [address] | | | | | [phone] | [phone] | | | | | | | [...] | | | | | [place] [address] | | | | | | [phone] | | | | | | | | +--------+---------+ + + + | 12/20/ | Office | Otolaryngology | Ulysses Genao MD | | | 2019 | Visit | | [address] | | | | | | [address] | | | | | | [place] [address] | | | | | | [phone] | | | | | | | | +--------+---------+ + + + | 02/15/ | Office | Internal Medicine | Alanis, | | | 2019 | Visit | | MD [place] | | | | | | [address] [place] | | | | | | [place] [address] | | | | | | [phone] | | | | | | | | +--------+---------+ + + + + + +--------+ + + | Name | Type | Priori | Associated Diagnoses | Order Schedule | | | | ty | | | + + +--------+ + + | [place] | Outpatient | Routin | Multiple food [...]
--- OUTSIDE RECORDS SUMMARY | ~2019-12-13 | XMS | Encounter Summary ---
Demographics + + + | Address | [address] | | | [place] [address] | + + + | Home Phone [...] Providers + +------+ + | Care Sales Account Specialist Name | Role | Phone | [...] | | [facility] [address] | HYPERBARIC TECHNICIAN [address] | | | | | Sara [place] | , [address] | | | | | Mailcode: Center | [place], [place] | | | | | [facility] and | [address] | | | | | Healing, Building [address] | [phone] | | | | | [place], [place] | | | | | | [address] | | | | | | [phone] | | | +--------+ + + + [...]
--- OUTSIDE RECORDS SUMMARY | ~2019-12-13 | XMS | Encounter Summary ---
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 2. Continue with [place] 10/325 1 tablet as needed for activity [...] is a 46 y.o. female [facility] Comprehensive Pain Center [...] able to see Dr Gutierrez yet b mt does have and appointment next week to [...] ev eduardo 72 hours. 2. Continue with [place] 10/325 1 tablet as needed for activity related pain NTE 3 per day. 3. Continue with pain psychology and physical therapy. 4. Follow up in two weeks to review medication management 5. Keep neurology evaluation as able with insurance aurthorization.- migraine headache eval uation 6. PCP to assess LE edema/swelling. DELFINA MOLINA [facility] Pain Center Mail code CH 4P [facility] and [address] [address] Ailyn Foster 09/10/19 07 12:20 [...]
--- OUTSIDE RECORDS SUMMARY | ~2019-12-13 | XMS | Encounter Summary ---
Demographics + + + | Address | [address] | | | [place] [address] | + + + | Home Phone [...] Providers + +------+ + | Care Engineer Soils Name | Role | Phone | + [...] [place] | | | | | | [place], [place] | [facility] | | | | | | [address] | [address] | | | | | | | [place], [place] | | | | | | | [address] | | | | | | | Phone: | | | | | | | [phone] | | | | | | | Fax: | | | | | | | [phone] | +--------+--------+ + + + + Encounter Details +--------+---------+ + + + | Date | Type | Department | Care Team | Description | +--------+---------+ + + + | 06/23/ | Office | [facility] Comprehensive | Adrien Smith, | Fibromyalgia | | 2013 | Visit | Pain Center at | [address] [facility] | syndrome 729.1 | | | | [facility] | [facility] [address] | (Primary Dx); LBP | | | | [address] | [place], [place] | (low back pain); | | | | Mailcode: CH15P | [address] | Chronic Bilateral | | | | [facility] | [phone] | Shoulder Pain; Post | | | | and Healing, | | laminectomy | | | | | | syndrome; Chronic | | | | Floor [place], [place] | | migraine | | | | [address] | | | | | | [phone] | | | +--------+---------+ + + + [...] evaluation of a patient with fibromyalgia, the [facility] Fibromyalgia clinic suggests laboratory screening [...] that fibromyalgia patients may have reduced PRIMARY TEACHER opioid receptors (Reji is RE, et al. Decreased central mu-opioid receptor availability in fibromyalgia. J Neurosci . 27(37):81697-0, 2006Feb 24.) and there are no controlled [...] documented in our notes. ADRIEN SMITH MD Printing Press Machinist, [facility] Booster Plant Operator, Pain Medicine Professor, Anesthesiology & Perioperative Medicine Brandon Phipps Md - 06/23/2013 2:21 PM PST [facility] Comprehensive Pain Center [...] she has worked with him be [facility]. This visit can be in tandem with [...] before her lumbar surgeries and recently in [place]. She has short-term relief from thes e treatments. I would like her to return to see Dr. Adrien Smith to discuss these treatment options. Consult to [facility] physical therapy: A supervised physical [...] has been treated at the [facility] for back pain with the following [...] tolerance 790.2 Fibromyalgia syndrome 729.1 Overview Note: <PROVIDER>DAVDIE LIZARRAGA Ms. Meehan completed the Brief Pain Inventory and a pain drawing which I reviewed. BEAD WIRE INSULATOR Brief Pain Inventory: (ten= worst possible pain [...] knee Lumbar fusion 05/2008, ' & ' L5-Y1tzmdpl with bone spur removals Appendectomy Cholecystectomy section [...] Hives Mainly in the legs Clindamycin Codeine Sdayybc-Sshhakrkvx-Dkg-Caff Balance problems Fioricet W/Codeine (Guxzqgygee-Jgfcrpkrxy-Ykf-Cod) Keflex (Cephalexin) Morphine IM ( only in [facility]) made gut pain worse 08/27/06: Trial of oral MSIR caused leg swelling Penicillins Sulfa (Sulfonamide Antibiotics) Tramadol Ms. Meehan reports no side effects. The Review of Systems provided by Ms. Meehan and documented by the [facility] was reviewed. Austyn tional comments: 1. BONES, [...] evaluation of a patient with fibromyalgia, the [facility] Fibromyalgia clinic suggests laboratory screening [...] that fibromyalgia patients may have reduced PRIMARY TEACHER opioid receptors (Xaiv RE, et al. Decreased central mu-opioid receptor availability in fib romyalgia. J Neurosci. 27(37):08086-5, 2006Feb 24.) and there are no controlled [...]
--- OUTSIDE RECORDS SUMMARY | ~2019-12-13 | XMS | Encounter Summary ---
Demographics + + + | Address | [address] | | | [place] [address] | + + + | Home Phone [...] Providers + +------+ + | Care Nurse Educator Name | Role | Phone | [...] | | | [facility] | [place], [place] | | | | | [address] | [address] | | | | | [address] | [phone] | | | | | Physician's | | | | | | Pavilion, 1st floor | | | | | | [place], [place] | | | | | | [address] | | | | | | [phone] | | | +--------+ + + + [...]
--- OUTSIDE RECORDS SUMMARY | ~2019-12-13 | XMS | Encounter Summary ---
Demographics + + + | Address | [address] | | | [place] [address] | + + + | Home Phone [...] Team Providers + +------+ + | Care Advanced Manufacturing Vice President Name | Role | Phone [...] 08/26/ | Office | [facility] at [facility] | Lukasz Charles, | Major Depressive | | 2006 | Visit | [address] | PhD [address] | Disorder, Recurrent | | | | Mailcode: 15 | [place], [place] | Episode, Moderate | | | | [facility] | [address] | ([facility]); Spondylosis | | | | and Healing, | [phone] | with Myelopathy, | | | | | | Lumbar Region; | | | | Floor [place], [place] | | Herniated Lumbar | | | | [address] | | Intervertebral Disc | | | | [phone] | | L4-5; Neck Pain; | | [...] talked to a friend about walking the river[employer]CP [employer]. Overall she has made some good changes. [...] natalie ing an effort to improve. Diagnosis: Embarrass I: 1. (296.32) Major depressive disorder, recurrent, moderate. 2. (309.24) Adjustment disorder with anxiety. 3. 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 Embarrass II: Deferred Embarrass III: abdominal pain, migraine headache, low back pain. Embarrass IV: low finances Embarrass V: GAF 50 Plan: Return in 2 weeks. Check pacing, relaxation, activity, distraction. Check managing Pain.. . book. Continue cognitive/behavioral therapy. Total time spent with patient was approximately 45 minutes. LUKASZ CHARLES PHD [facility] [address] [place] [address] And [facility] [address] [place] [address] documented in this encount er Plan of [...] Moderate | | | | | | ([facility]) Spondylosis | | | | [...]
--- OUTSIDE RECORDS SUMMARY | ~2019-12-13 | XMS | Encounter Summary ---
Demographics + + + | Address | [address] | | | [place] [address] | + + + | Home Phone [...] Team Providers + +------+ + | Care Cuprous Chloride Helper Name | Role | Phone | [...] + + | 03/08/ | Telephone | [facility] | Alanis, | Hospitalization | | 2017 | | MEDICINE [address] | MD [place] | | | | | [place], | [address] [facility] | | | | | [place] [address] | [place] [address] | | | | | [phone] | [phone] | | | | | | | [...] n emergent 13 hour surgery yesterday in [place] to remove bad adhesions around her intesti flor and is in a lot of pain but currently in the hospital. Patient would like a call back a t [phone]. elepho ne Encounter - Adriana Cantor - 03/08/2018 6:59 AM PDTPatient called asking to speak wi th the nurse. Patient wanted to let the office know she is in the hospital in [place] in the ICU as she had surgery yesterday for a bowel obstruction. Patient can be reached at [phone]. docushazia cortes this encounter Plan of Treatment +--------+---------+ [...] | | | | | [place] [address] | | | | | | [phone] | | | | | | | | +--------+---------+ + + + | 12/20/ | Office | Otolaryngology | Ulysses Genao MD | | | 2020 | Visit | | [address] | | | | | | [address] [place] | | | | | | [place] [address] | | | | | | [phone] | | | | | | | | +--------+---------+ + + + | 02/15/ | Office | Internal Medicine | Alanis, | | | 2019 | Visit | | MD [place] | | | | | | [address] | | | | | | [place] [address] | | | | | | [phone] | | | | | | | | +--------+---------+ + + + documented as of this encounter Visit Diagnoses Not on filedocumented in this encounter"
--- OUTSIDE RECORDS SUMMARY | ~2019-12-13 | XMS | Encounter Summary ---
Demographics + + + | Address | [address] | | | [place] [address] | + + + | Home Phone [...] | Organization | [facility] | | | and [...] Team Providers + +------+ + | Care Porcelain Technician Name | Role | Phone | [...] + + | 04/06/ | Telephone | [facility] INTER[facility] | Alanis, | Care Coordination | | 2017 | | [place] [address] [address] | MD Petrona | | | | | [place], | [address] [place] | | | | | [place] [address] | [place] [address] | | | | | [phone] | [phone] | | | | | | | [...] 04/08/18 for post operative follow up from [facility]'s bowel obstruction surgery and new report of breathing concerns. I have also encour aged her to seek medical attention sooner or EMS system if necessary for evaluation of breat campbell concerns. She reports has scheduled transportation to office visit from [place].Elect ronically signed by Erica Emerson RN at [...] | | | | | | [place] [address] | | | | | | [phone] | | | | | | | | +--------+---------+ + + + | 12/20/ | Office | Otolaryngology | Ulysses Genao MD | | | 2019 | Visit | | [address] | | | | | | [address] [place] | | | | | | [place] [address] | | | | | | [phone] | | | | | | | | +--------+---------+ + + + | 02/15/ | Office | Internal Medicine | Alanis, | | | 2019 | Visit | | MD Petrona | | | | | | [address] [place] | | | | | | [place] [address] | | | | | | [phone] | | | | | | | | +--------+---------+ + + + documented as of this encounter Visit Diagnoses Not on filedocumented in this encounter"
--- OUTSIDE RECORDS SUMMARY | ~2019-12-13 | XMS | Encounter Summary ---
Demographics + + + | Address | [address] | | | [place] [address] | + + + | Home Phone [...] Team Providers + +------+ + | Care Offal Baler Name | Role | Phone | [...] [facility] | [address] | without Myelopathy | | | | [address] | Clementina [address] [place], | (Primary Dx); | | | | [address] Mailcode: | [place] [address] | Spondylosis with | | | | [facility] | | Myelopathy, Lumbar | | | | Health and Healing, | | Region; Herniated | | | | Building | | Lumbar | | | | Floor [place], [place] | | Intervertebral Disc; | | | | [address] | | Unspecified Myalgia | | | | [phone] | | and Myositis | +--------+---------+ + [...] Progress Note Date: 08/05/2006 Belinda Molly Shefali [id number]. [id number] Start of Care: 06/23/2006 Referring Provider: [...] keep hydrated, went to the ED in [place] and was sent home by the M.DYudy There without a ny treatment and advised by him to contact the pain clinic. Patient did not some relief with her last treatment, and continues her exercises consistent ly. She is walking daily at [facility] for 15-20 minutes, sitting X 60 [...]
--- OUTSIDE RECORDS SUMMARY | ~2019-12-13 | XMS | Encounter Summary ---
Demographics + + + | Address | [address] | | | [place] [address] | + + + | Home Phone [...] Providers + +------+ + | Care Mining Engineer Name | Role | Phone | + +------+ + | Sulaiman Carrera MD | PCP | | + +------+ + Encounter Details +--------+ + + + + | Date | Type | Department | Care Team | Description | +--------+ + + + + | 02/23/ | Ancillary | Registration 3181 | Beto Meeks MD | | | 2006 | Registratio | [facility] | [address] | | | | n | [place] Mailcode: RPB07 | [place], [place] | | | | | [place], [place] | [address] | | | | | [address] | [phone] | | | | | [phone] | | | +--------+ + + + [...] + | [facility] | [address] | [place] [address] | | | LABORATORY | | | [...] [address] | | | | | | [facility] Andrew, [facility] | | | | | | [address] | | | | | | [phone] | | | | | | Sincere [...] [facility] | [address] | [place], [place] | | | UN[facility] P[facility] | | [address] | | + + + + + documented in this encounter Visit Diagnoses Not on filedocumented in this encounter"
--- OUTSIDE RECORDS SUMMARY | ~2019-12-13 | XMS | Encounter Summary ---
Demographics + + + | Address | [address] | | | [place] [address] | + + + | Home Phone [...] Providers + +------+ + | Care In Service Educator Name | Role | Phone | [...] as of this encounter Progress Notes Interface, Subject Scientific Research In - 02/15/2006 2:03 AM PDT [id number] GEOVANNI SKELTON Molly [id number] Clinic Date: 10/23/2005 Clinic: Endocrinology Subjective: Belinda [...] her back on October 06, 2005, in [place], [place]. This study showed a moderate central disk bulge at L4-L5 consistent with a herniated nucleus pulposus. There has been some discussion by her physicians in [place] about the possibility of giving her epidural [...] most recent laboratory studies were performed in [place] on July 02, 2005. At that time, [...] months. Beto Meeks M.D. PD / HS [id number] / [id number] / [id number] / cc: Joanna Arshad M.D. [address] [place] [address] Electronically signed by Beto Meeks 02-14-2006 02:02:42 AM documented i n this encounter Plan of Treatment Not on filedocumented as of this encounter Visit Diagnoses Not on filedocumented in this encounter"
--- OUTSIDE RECORDS SUMMARY | ~2019-12-13 | XMS | Encounter Summary ---
Demographics + + + | Address | [address] | | | [place] [address] | + + + | Home Phone [...] Providers + +------+ + | Care Process Specialist Name | Role | Phone [...] as of this encounter Progress Notes Interface, Produce Buyer In - 08/19/2005 2:05 AM PST [id number] GEOVANNI Barnes Clinic Date: 07/24/2005 Clinic: Hematology [...] full and complete summary. Lukasz Sellers M.D. final inspector shuttle NANCY / SHARIF [id number] / [id number] / [id number] / [id number] cc: Pedrito Gutierrez M.D. [address] [place] [address] Electronically signed by Lukasz Sellesr 08-18-2005 01:28:24 PM documented i n this encounter Plan of Treatment Not on filedocumented as of this encounter Visit Diagnoses Not on filedocumented in this encounter"
--- OUTSIDE RECORDS SUMMARY | ~2019-12-13 | XMS | Encounter Summary ---
Demographics + + + | Address | [address] | | | [place] [address] | + + + | Home Phone [...] Providers + +------+ + | Care Power Transformer Assembler Name | Role | Phone | [...] | | | Ave Mailcode: CH4S | [facility] | | | | | [facility] | [place], [place] | | | | | and Healing, | [address] | | | | | [place] [address] [facility] | [phone] | | | | | Floor [place], [place] | | | | | | [address] | | | | | | [phone] | | | +--------+ + + + [...]
--- OUTSIDE RECORDS SUMMARY | ~2019-12-13 | XMS | Clinical Summary ---
Demographics + + + | Address | [address] | | | [place] [address] | + + + | Home Phone [...] Providers + +------+ + | Care Instructor Kindergarten Name | Role | Phone | + +------+ + | Sulaiman Carrera MD | PCP | | + +------+ + Source Comments MARK is fully live on both [facility] Ambulatory and [facility] InPatient.[facility] Allergies + + + + [...] + + + + + + | Ablvhin-Qreoectocq-P | | | 08/29/19 | Balance problems [...] in | | | | | | [facility]) | | | | | | [...] | imbalances, sleep apnea, neck pain, medication [id number] | + + + + + | [...] | B | | sent | | [place], [place] | | | | | | | | [address] | | + +--------+ +--------+ + +--------+ | CASING FINISHER AND STUFFER MEDICAID | CASING FINISHER AND STUFFER | xxxxxxxx | | | | Medica [...] | 1960 | [phone] | [place] [address] | | | bijan | | | 3 (Home) | | + +--------+ +--------+ + + | Belinda Meehan | Medica | Self | [birth year] | [address] | | | re | | 9 | [phone] | [place] [address] | | | Recurr | | | 3 (Home) | | | | ing | | | | | + +--------+ +--------+ + + Advance Directives + + + + + | Type | Date Recorded | Patient | Explanation | | | | Gelatin Maker Utility | | + + + + + | Advance | 11/19/2004 12:00 | | ADVANCE DIRECTIVE | | Directives and | AM | | | | Living Will | | | | + + + + + | Power of | | | | | General Surgeon | | | | + + + [...]
--- OUTSIDE RECORDS SUMMARY | ~2019-12-13 | XMS | Encounter Summary ---
[...] Providers + +------+ + | Care Car Shagger Name | Role | Phone | + +------+ + | Maria Esther Cintron MD | PCP | | + +------+ + Encounter Details +--------+ + + + + | Date | Type | Department | Care Team | Description | +--------+ + + + + | 10/27/ | Telephone | [facility] | Chris Padgett, | | | 2008 | | [place] [address] | [address] [facility] | | | | | Bethanie Mailcode: CH4S | [address] | | | | | [facility] | [place], [place] | | | | | and Healing, | [address] | | | | | Building , 6th | [phone] | | | | | Floor [place], [place] | | | | | | [address] | | | | | | [phone] | | | +--------+ + + + [...]
--- OUTSIDE RECORDS SUMMARY | ~2019-12-13 | XMS | Encounter Summary ---
Demographics + + + | Address | [address] | | | [place] [address] | + + + | Home Phone [...] Providers + +------+ + | Care Green Coffee Blender Name | Role | Phone | [...] | Discussion | | 2007 | | [facility] & | MD | | | | | Healing [address] | | | | | | [place] Mailcode: CH8C | | | | | | [facility] | | | | | | and Healing, | | | | | | Building | | | | | | Floor [place], [place] | | | | | | [address] | | | | | | [phone] | | | +--------+ + + + [...]
--- OUTSIDE RECORDS SUMMARY | ~2019-12-13 | XMS | Encounter Summary ---
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
--- OUTSIDE RECORDS SUMMARY | ~2019-12-13 | XMS | Encounter Summary ---
Demographics + + + | Address | [address] | | | [place] [address] | + + + | Home Phone [...] Team Providers + +------+ + | Care Transitional Kindergarten Teacher Name | Role | Phone [...] order); | | | | Ave Mailcode: [facility] | [address] | Diarrhea | | | | [facility] | [place], [place] | | | | | and Healing, | [address] | | | | | [place] [address] [facility] | [phone] | | | | | [place], [place] | | | | | | [address] | | | | | | [phone] | | | +--------+ + + + [...]
--- OUTSIDE RECORDS SUMMARY | ~2019-12-13 | XMS | Encounter Summary ---
Demographics + + + | Address | [address] | | | [place] [address] | + + + | Home Phone [...] Providers + +------+ + | Care Cloth Mercerizer Operator Name | Role | Phone | [...] RPB07 | | | | | | [place], [place] | | | | | | [address] | | | | | | [phone] | | | +--------+ + + + [...]
--- OUTSIDE RECORDS SUMMARY | ~2019-12-13 | XMS | Encounter Summary ---
Demographics + + + | Address | [address] | | | [place] [address] | + + + | Home Phone [...] Providers + +------+ + | Care Agricultural Equipment Operator Name | Role | Phone [...] as of this encounter Progress Notes Interface, Mooner In - 12/25/2005 2:07 AM PDT [id number] GEOVANNI Barnes [id number] Clinic Date: 12/05/2005 Clinic: General Surgery Clinic PHONE CONSULTATION Subjective: Belinda Meehan has been under our care with a history of gastric bypass and recurrent abdominal pain, nondiagnostic on multiple tests. She was requesting a prescription for oxycodone which will be sent to her home at [address] [place] [address]. Oxycodone 5 mg, 5 to 10 p.o. [...] Padgett in clinic. Melisa Thorne / SHARIF [id number] / [id number] / [id number] / [id number] Electronically signed by Kenisha Melton 12-24-2005 01:41:04 PM documented i n this encounter Plan of Treatment Not on filedocumented as of this encounter Visit Diagnoses Not on filedocumented in this encounter"
--- OUTSIDE RECORDS SUMMARY | ~2019-12-13 | XMS | Encounter Summary ---
Demographics + + + | Address | [address] | | | [place] [address] [...] Providers + +------+ + | Care Marketing Clerk Name | Role | Phone | + +------+ + | Petrona Thapa | PCP | | | MD | | | + +------+ + Encounter Details +--------+ + + + + | Date | Type | Department | Care Team | Description | +--------+ + + + + | 02/23/ | Hospital | [facility] | [place] | Right shoulder pain, | | 2018 | Encounter | [facility] [place] [facility] | MD [address] | unspecified | | | | [address] [place] | [address] [address] | chronicity | | | | [place] | [place] [address] | | | | | [address] | [phone] | | | | | [phone] | | | +--------+ + + + [...] | | | | | [place] [address] | | | | | | [phone] | | | | | | | | +--------+---------+ + + + | 12/20/ | Office | Otolaryngology | Ulysses Genao MD | | | 2019 | Visit | | [address] | | | | | | [address] [place] | | | | | | [place] [address] | | | | | | [phone] | | | | | | | | +--------+---------+ + + + | 02/15/ | Office | Internal Medicine | Alanis, | | | 2019 | Visit | | MD Petrona | | | | | | [address] [place] | | | | | | [place] [address] | | | | | | [phone] | | | | | | | [...]
--- OUTSIDE RECORDS SUMMARY | ~2019-12-13 | XMS | Encounter Summary ---
[...] Providers + +------+ + | Care Report Writer Name | Role | Phone | [...] Medication requested | | 2007 | | [place] [address] | [address] | (sucralfate | | | | Ave Mailcode: CH4S | [facility] | (CARAFATE) 1 gram | | | | [facility] | [place], [place] | Oral Tablet) | | | | and Healing, | [address] | | | | | [facility] | [phone] | | | | | [place], [place] | | | | | | [address] | | | | | | [phone] | | | +--------+ + + + [...]
--- OUTSIDE RECORDS SUMMARY | ~2019-12-13 | XMS | Encounter Summary ---
Demographics + + + | Address | [address] | | | [place] [address] | + + + | Home Phone [...] Team Providers + +------+ + | Care Quartz Cutter Name | Role | Phone | [...] + + | 05/14/ | Telephone | [facility] INTER[facility] | Alanis, | Referral | | 2017 | | MEDICINE [address] | MD [place]ron[place] | | | | | [place], | [address] [facility] | | | | | [place] [address] | [place] [address] | | | | | [phone] | [phone] | | | | | | | [...] in town for her appointment. Please advise [phone] documented in this encounter Plan of Treatment [...] | | | | | [place] [address] | | | | | | [phone] | | | | | | | | +--------+---------+ + + + | 12/20/ | Office | Otolaryngology | Ulysses Genao MD | | | 2019 | Visit | | [address] | | | | | | [address] [place] | | | | | | [place] [address] | | | | | | [phone] | | | | | | | | +--------+---------+ + + + | 02/15/ | Office | Internal Medicine | Alanis, | | | 2019 | Visit | | MD [place] | | | | | | [address] | | | | | | [place] [address] | | | | | | [phone] | | | | | | | | +--------+---------+ + + + documented as of this encounter Visit Diagnoses Not on filedocumented in this encounter"
--- OUTSIDE RECORDS SUMMARY | ~2019-12-13 | XMS | Encounter Summary ---
Demographics + + + | Address | [address] | | | [place] [address] | + + + | Home Phone [...] | [address] | [facility] | Pre-Operative | | | | [address] | [facility] | Examination (Primary | | | | Mailcode: PV430 | [address] | Dx) | | | | Physician's Pavilion | [address] [place], | | | | | [place], [place] | [place] [address] | | | | | [address] | [phone] | | | | | [phone] | | | +--------+---------+ + + + [...] surgeries scheduled to take place on the [place] at the [facility]: Surgeries scheduled in the [facility] ([address] [place] [address]): registration is located on the 4th floor of [facility] (Day Surgery). Surgeries scheduled in the [facility]: registration is located on the 9th floor. Surgeries scheduled in [facility]: registration is located on the 6th floor. Surgeries scheduled in the [facility]: registration is located i n the [facility] on the first floor. For surgeries scheduled to take place at the [facility]: registration is l ocated on the 4th [...] you use specialized medical equipment at [facility], please check with your provider before [...] surgeries scheduled to take place on the [place] at the [facility]: Surgeries scheduled in the [facility] ( [place]): registration is located on the 4th floor of [facility] (Day Surgery). Surgeries scheduled in the [facility]: registration is located on the 9th floor. Surgeries scheduled in [facility]: registration is located on the 6th floor. Surgeries scheduled in the [facility]: registration is located i n the [facility] on the first floor. For surgeries scheduled to take place at the [facility]: registration is l [...] you use specialized medical equipment at [facility], please check with your provider before [...] Overview Note: Surgery 05/15/08 Dr Ricky Garnett [place] JEY karlos to get operative reports Osteopenia [...] 08/2007 right knee Hx lumbar fusion 05/2008 L5-O3urelrv with bone spur removals Hx appendectomy Hx [...] (Ciprofloxacin) Tramadol Morphine IM ( only in [facility]) made gut pain worse 08/27/06: Trial of oral MSIR caused leg swelling Clarithromycin Hives Mainly in the legs Bvyrlpj-gebnwvzxhh-hxi-caff Balance problems Amitriptyline Grand mal seizures Fioricet W/codeine (Qjq-wsptrphywa-qctolbgzlb-caf) FAMILY HISTORY: Family History Problem Relation Cancer [...] | | | DEPARTMENT | | | TOGOLESE | | | OF | | | [...] + + + + + | [facility] | [address] | [place] [address] | | | PATHOLOGY | [address] | | | + + + + + | [facility] DEPARTMENT OF | [address] | [place] [address] | | | PATHOLOGY | [address] [...] DEPARTMENT OF | [address] | [place] [address] | | | PATHOLOGY | [address] | | | + + + + + | [facility] | [address] | [place] [address] | | | PATHOLOGY | [address] | | | + + + + + documented in this encounter Visit Diagnoses + + | Diagnosis | + + | Other specified pre-operative examination - Primary | + + documented in this encounter
--- OUTSIDE RECORDS SUMMARY | ~2019-12-13 | XMS | Encounter Summary ---
Demographics + + + | Address | [address] | | | [place] [address] | + + + | Home Phone [...] Team Providers + +------+ + | Care [facility] Name | Role | Phone | + [...] | Osteopenia | MD Beto | Density [facility] | | | | | Procedures | [address] | [address] | | | | | CONSULT TO | Ave | [address] | | | | | BONE | [place], [place] | Rd Mailcode: | | | | | DENSITOMETRY | [address] | [address] | | | | | | Phone: | [address] | | | | | | [phone] | [place], [place] | | | | | | Fax: | [address] | | | | | | [phone] | Phone: | | | | | | | [phone] | | | | | | | Fax: | | | | | | | [phone] | +--------+--------+ + + + + Encounter Details +--------+ + + + + | Date | Type | Department | Care Team | Description | +--------+ + + + + | 07/24/ | Hospital | Endocrinology, | Sjh, Bmd Dexa | | | 2008 | Encounter | Diabetes and | [address] | | | | | Clinical Nutrition | [facility], | | | | | [address] | [place] [address] | | | | | [facility] Mailcode: | | | | | | [address] | | | | | | [place], [place] | | | | | | [address] | | | | | | [phone] | | | +--------+ + + + [...] from the Results section by P Byron [[id number]] on | | | 04/17/2009 at 5:16 PM (File: [id number]) | | + + + BONE DENSITOMETRY [...]
--- OUTSIDE RECORDS SUMMARY | ~2019-12-13 | XMS | Encounter Summary ---
Demographics + + + | Address | [address] | | | [place] [address] | + + + | Home Phone [...] [address] | | | | | [place], [place] | [place], [place] | | | | | [address] | [address] | | | | | [phone] | [phone] | | | | | | | [...]
--- OUTSIDE RECORDS SUMMARY | ~2019-12-13 | XMS | Encounter Summary ---
Demographics + + + | Address | [address] | | | [place] [address] | + + + | Home Phone [...] Providers + +------+ + | Care Tile Layer Supervisor Name | Role | Phone [...] | Transcriptions | + + | Interface, Forming Process Worker In - 06/05/2005 5:20 AM PST | | [id number] | | [id number] GEOVANNI Barnes | | | | Date: 12/06/2004 | | | | Attending Surgeon: Chris Padgett M.D. | | | | Half Section Ironer(s): | | | | Preoperative Diagnosis(es): | [...] | | BW / HS | | [id number] / [id number] / [id number] / | | | | | | | | | | | | Electronically signed by Chris Padgett 12-31-2004 03:02:45 PM | + + documented in this encounter Visit Diagnoses Not on filedocumented in this encounter"
--- OUTSIDE RECORDS SUMMARY | ~2019-12-13 | XMS | Encounter Summary ---
Demographics + + + | Address | [address] | | | [place] [address] | + + + | Home Phone [...] Team Providers + +------+ + | Care Mainframe Consultant Name | Role | Phone | [...] | | | | | | Floor [place], [place] | | | | | | [address] | | | | | | [phone] | | | +--------+ + + + [...]
--- OUTSIDE RECORDS SUMMARY | ~2019-12-13 | XMS | Encounter Summary ---
Demographics + + + | Address | [address] | | | [place] [address] | + + + | Home Phone [...] Team Providers + +------+ + | Care Ostomy Rn Name | Role | Phone | [...] + + | 08/17/ | Telephone | [facility] INTER[facility] | Alanis, | Other | | 2019 | | MEDICINE [address] | MD [place] | | | | | MAL[place], | [address] [facility] | | | | | [place] [address] | [place] [address] | | | | | [phone] | [phone] | | | | | | | [...] incontinence supplies form. Patient will call the [employer] to see if they receivedElectron ically signed [...] | | | | | [place] [address] | | | | | | [phone] | | | | | | | | +--------+---------+ + + + | 12/20/ | Office | Otolaryngology | Ulysses Genao MD | | | 2019 | Visit | | [address] | | | | | | [address] [place] | | | | | | [place] [address] | | | | | | [phone] | | | | | | | | +--------+---------+ + + + | 02/15/ | Office | Internal Medicine | Alanis, | | | 2019 | Visit | | MD [place] | | | | | | [address] [place] | | | | | | [place] [address] | | | | | | [phone] | | | | | | | | +--------+---------+ + + + documented as of this encounter Visit Diagnoses Not on filedocumented in this encounter"
--- OUTSIDE RECORDS SUMMARY | ~2019-12-13 | XMS | Clinical Summary ---
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 | | | | | (Reor | | Nausea | | | | | | crista) | + + + +---------+------+------+-------+ | SUMAtriptan | Take 1 tablet by | 12 | 5 | 10/0 | 06/2 | Disco | | (IMITREX) 100 mg | mouth as needed for | tablet | | 7/20 | 9/20 | ntinu | | tabletIndications: | Migraine. Take 1 tab | | | 19 | 20 | ed | | Migraine without | by mouth on on-set | | | | | (Reor | | aura and without | of Migraine, may | | | | | crista) | | status migrainosus, | repeat in [...] crista) | + + + +---------+------+------+-------+ | loperamide | take 4 capsules by | 180 | 2 | 03/2 | 06/2 | Disco | | (IMODIUM) 2 mg | mouth every morning | capsule | | 3/20 | 2/20 | ntinu | | capsule | and 2 capsules by | | | 20 | 20 | ed | | | mouth every evening | | | | | (Reor | | | | | | | | crista) | + + + +---------+------+------+-------+ | sucralfate | take 1 tablet by | 120 | 1 | 04/0 | 06/0 | Disco | | (CARAFATE) 1 g | mouth four times a | tablet | | 9/20 | 2/20 | ntinu | | tablet | day if needed | | | 20 | 20 | ed | | | | | | | | (Ther | | | | | | | | apy | | | | | | | | compl | | | | | | | | eted) | + + + +---------+------+------+-------+ | | Take 1 tablet by | 180 | 2 | 06/0 | 06/0 | Disco | | diphenoxylate-atropi | mouth 6 times daily. | tablet | | 2/20 | 5/20 | ntinu | | ne (LOMOTIL) | | | | 20 | 20 | ed | | 2.5-0.025 mg per | | | | | | (Ther | | tabletIndications: | | | | | | apy | | Chronic diarrhea, | | | | | | compl | | History of Zoe-en-Y | | | | | | eted) | | gastric bypass | | | | | | | + + + +---------+------+------+-------+ | loperamide | 2 tablets by mouth | 60 | 3 | 06/0 | 06/2 | Disco | | (IMODIUM A-D) 2 MG | followed by 1 tablet | tablet | | 5/20 | 2/20 | ntinu | | tabletIndications: | by mouth after each | | | 20 | 20 | ed | | Diarrhea, | loose stool; Max 16 | | | | | (Ther | | unspecified type | mg/day | | | | | apy | [...] | Orders Only | Internal Medicine | Emmy-Jeffti, | Right wrist pain | | 2019 | | | MD [place] | (Primary Dx) | +--------+ + + + + | 11/24/ | Orders Only | Internal Medicine | Emmy-Kamlesh, | OLIVER (obstructive | | 2019 | | | MD [place] | sleep apnea) | | | | | | (Primary Dx) | +--------+ + + + + | 11/24/ | Telephone | Internal Medicine | Alanis, | Wrist Pain | | 2019 | | | [...] Medicine | Alanis, | Illness | | 2020 | | | MD [...] | | | | | [place] [address] | | | | | | [phone] | | | | | | | | +--------+---------+ + + + | 12/20/ | Office | Otolaryngology | Ulysses Genao MD | | | 2019 | Visit | | [address] | | | | | | [address] [place] | | | | | | [place] [address] | | | | | | [phone] | | | | | | | | +--------+---------+ + + + | 02/15/ | Office | Internal Medicine | EmmyAnjum, | | | 2019 | Visit | | MD [place] | | | | | | [address] [place] | | | | | | [place] [address] | | | | | | [phone] | | | | | | | [...] Months Results IMAGING REPORT - EXTERNAL SCAN (11/17/2019 [...] +--------+ +---------+--------+ | MEDICARE | MEDICA | [id number] | 07/16/19 | [phone] | | Medica | | | RE | | 03-Pre | 5 | | re | | | PART A | | sent | | | | | | AND B | | | | | | + +--------+ +--------+ +---------+--------+ | [employer] | MODA | [id number] | 06/16/19 | [phone] | | Medica [...] 686 | | | al/Fam | | 9 | [phone] | [place] [address] | | | bijan | | | 0 (Home) | | + +--------+ +--------+ + + Advance Directives + + + + + | Type | Date Recorded | Patient | Explanation | | | | Pad Machine Offbearer | | + + + + + | Power of | | | | | Food And Drug Inspector | | | | + + + + + | Advance | 10/14/2018 10:09 | | | | Directive | AM | | | + + + + +
--- OUTSIDE RECORDS SUMMARY | ~2019-12-13 | XMS | Encounter Summary ---
[...] Team Providers + +------+ + | Care Solidworks Drafter Name | Role | Phone | [...] | Procedures | [address] | [place] | | | | | CONSULT TO | [address] | [address] | | | | | GI PROCEDURE | Rd | floor | | | | | UNIT: EGD | [place], [place] | [place], [place] | | | | | | [address] | [address] | | | | | | Phone: | Phone: | | | | | | [phone] | [phone] | | | | | | | Fax: | | | | | | | [phone] | +--------+--------+ + + + + Consultation [...] | | | | | UNIT: | [place], [place] | [place] | | | | | COLONOSCOPY | [address] | [address] | | | | | | Phone: | Phone: | | | | | | [phone] | [phone] | | | | | | | Fax: | | | | | | | [phone] | +--------+--------+ + + + + Reason [...] + + | 03/10/ | Office | [facility] Division of | Carlos Arreola, | Chronic Abdominal | | 2005 | Visit | Gastroenterology/Hep | MD [address] | Pain; Iron | | | | atology [address] | Deficiency | | | | [address] | [place] [address] | | | | | Mailcode: PV310 | [phone] | | | | | [facility] | | | | | | [address] | | | | | | [place], [place] | | | | | | [address] | | | | | | [phone] | | | +--------+---------+ + + + [...] contact me, please do so by calling [phone] and asking for my hygiene assistant Cierra Alexis. I always do my [...] other questions or issues. Carlos Arreola MD. 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 Lost 200lbs psot bypass surgery, has [...] [facility] | [address] | [place] [address] | | | PATHOLOGY | [address] | | | + + + + + | [facility] | [address] | [place] [address] | | | PATHOLOGY | [address] [...] + + | [facility] | [address] | [place] [address] | | | PATHOLOGY | [address] | | | + + + + + | [facility] | [address] | [place] [address] | | | PATHOLOGY | [address] [...] [facility] DEPARTMENT OF | [address] | [place] [address] | | | PATHOLOGY | [address] | | | + + + + + | [facility] | [facility] [address] | [place] [address] | | | PATHOLOGY | [address] [...] DEPARTMENT OF | [address] | [place] [address] | | | PATHOLOGY | [address] | | | + + + + + | [facility] | [address] | [place] [address] | | | PATHOLOGY | [address] [...] | | | | | [facility]. | | | | + + + + + + + + | Specimen | + + | | + + + + + + + | Performing | Address | City/State/Zipcode | Phone Number | | Organization | | | | + + + + + | [facility] | [address] | [place] [address] | | | LABORATORY | | | [...] | | | | | performed at [place] | | | | | | Augusta [...] | + + + + + | [facility] | [address] | [place] [address] | | | LABORATORY | | | | + + + + + documented in this encounter Visit Diagnoses + + | Diagnosis | + + | Chronic abdominal pain Abdominal pain, unspecified site | + + | Iron deficiency Other disorders of iron metabolism | + + documented in this encounter"
--- OUTSIDE RECORDS SUMMARY | ~2019-12-13 | XMS | Encounter Summary ---
Demographics + + + | Address | [address] | | | [place] [address] | + + + | Home Phone [...] Providers + +------+ + | Care College [employer] Business Manager Name | Role | Phone [...] | 2006 | Visit | Center at [facility] | [address] [facility] | Myelopathy, Lumbar | | | | [place] [address] [place], | Region; Neck Pain; | | | | [place] Mailcode: | [place] [address] | Herniated Lumbar | | | | [facility] | | Intervertebral Disc | | | | Health and Healing, | | L4-5; Fibromyalgia | | | | Building | | syndrome 729.1; NO | | | | Floor [place], [place] | | DIAGNOSIS RECEIVED | | | | [address] | | | | | | [phone] | | | +--------+---------+ + + + [...] Date: December 02, 2006 Patient: Belinda Meehan, [id number], 1960 I agree with the proposed Physical Therapy Treatment Plan. Provider: DELFINA BUNDY elfina Molina - 007 11:31 AM PDTThis encounter was opened in error. Please disregard this note. athalia Arora - 007 12:26 PM PDT PROGRESS NOTE: Physical Therapy Medicare Progress Note Date: 10/07/2006 Belinda Meehan [id number]. 1960 Start of Care: 06/23/2006 Referring Provider: [...] dial meniscal tear. Patient continues walking at [employer] on a daily basis, (when she is no t in [place] for appts), 30-40 minutes, and her HEP [...] ended: 115 Nathalia Arora, Physical Therapist License #[id number] documented in this encoun ter Plan of [...]
--- OUTSIDE RECORDS SUMMARY | ~2019-12-13 | XMS | Encounter Summary ---
Demographics + + + | Address | [address] | | | [place] [address] | + + + | Home Phone [...] + +------+ + | Care Director Of Curriculum And Instruction Name | Role | Phone | + [...] Required | | | i, | [address] [place] | | | | | osteoporosis | Sulaim[address]Iv[address] | [place], | | | | | without | , MD [address] | [place] [address] | | | | | current | [address] | Phone: | | | | | pathological | [place], | [phone] | | | | | fracture | [place] | Fax: | | | | | | [address] | [phone] | | | | | | Phone: | | | | | | | [phone] | | | | | | | Fax: | | | | | | | [phone] | | +--------+ + + + + [...] Required | | | i, | [address] [place] | | | | | osteoporosis | [place] | [place], | | | | | without | , MD [address] | [place] [address] | | | | | current | [address] | Phone: | | | | | pathological | [place], | [phone] | | | | | fracture | [place] | Fax: | | | | | | [address] | [phone] | | | | | | Phone: | | | | | | | [phone] | | | | | | | Fax: | | | | | | | [phone] | | +--------+ + + + + + Encounter Details +--------+ + + + + | Date | Type | Department | Care Team | Description | +--------+ + + + + | 10/14/ | Hospital | [facility] | EmmyAlberto, | Age-related | | 2019 | Encounter | MED CTR OP INFUSION | MD [place] | osteoporosis without | | | | [address] | [address] [facility] | current | | | | [place] | [place] [address] | pathological | | | | [address] | [phone] | fracture (Primary | | | | [phone] | | Dx) | +--------+ + + [...] Nasal | 9.9 mL | 5 | 02/01/20 | | | (FLONASE) 50 | route [...] RN 10/14/2018 11:41 Lisa Simms RN - 0 10/14/2018 10:42 AM PDT [...] [address] | | | | | | [facility] | | | | | | [place] [address] | | | | | | [phone] | | | | | | | | +--------+---------+ + + + | 12/20/ | Office | Otolaryngology | Ulysses Genao MD | | | 2019 | Visit | | [address] | | | | | | [address] [place] | | | | | | [place] [address] | | | | | | [phone] | | | | | | | | +--------+---------+ + + + | 02/15/ | Office | Internal Medicine | Alanis, | | | 2019 | Visit | | MD [place] | | | | | | [address] [place] | | | | | | [place] [address] | | | | | | [phone] | | | | | | | [...]
--- OUTSIDE RECORDS SUMMARY | ~2019-12-13 | XMS | Encounter Summary ---
Demographics + + + | Address | [address] | | | [place] [address] | + + + | Home Phone [...] | | Center at [facility] [address] | INFORMATION SECURITY MANAGER [address] | | | | | [place] | , [address] | | | | | Mailcode: Center | [place], [place] | | | | | [facility] and | [address] | | | | | Healing, Building [address] | [phone] | | | | | [place], [place] | | | | | | [address] | | | | | | [phone] | | | +--------+ + + + [...]
--- OUTSIDE RECORDS SUMMARY | ~2019-12-13 | XMS | Encounter Summary ---
Demographics + + + | Address | [address] | | | [place] [address] | + + + | Home Phone [...] + +------+ + | Care Client Service Representative Name | Role | Phone [...]
--- OUTSIDE RECORDS SUMMARY | ~2019-12-13 | XMS | Encounter Summary ---
Demographics + + + | Address | [address] | | | [place] [address] | + + + | Home Phone [...] Providers + +------+ + | Care Roll Edge Machine Operator Name | Role | Phone [...] | | | | | [facility] | | | | | | [address] | | | | | | Mailcode: CH15P | | | | | | [facility] | | | | | | and Healing, | | | | | | Building | | | | | | Floor [place], [place] | | | | | | [address] | | | | | | [phone] | | | +--------+ + + + [...]
--- OUTSIDE RECORDS SUMMARY | ~2019-12-13 | XMS | Encounter Summary ---
Demographics + + + | Address | [address] | | | [place] [address] | + + + | Home Phone [...] Team Providers + +------+ + | Care Cartridge Loading Operator Name | Role | Phone | [...] as of this encounter Progress Notes Interface, Primary Mill Roller In - 01/21/2006 1:09 AM [facility] [place] [address] [address], [place] [address] or March 15, 2002 Pedrito Gutierrez M.D. [facility] [address] [place] [address] RE: BELINDA MEEHAN MR #: [id number] Dear Dr. Gutierrez: I had the pleasure [...] set her up to see a senior environmental consultant in Neurology or the [facility] [...] to contact me. Sincerely, Issac Meeks M.D. fabrication engineer Division of Endocrinology, Diabetes, and Clinical Networker of Metabolic Disorders Clinic [employer] / SHARIF [id number] / [id number] / [id number] / Tdocumented in this encounter Plan of Treatment Not on filedocumented as of this encounter Visit Diagnoses Not on filedocumented in this encounter"
--- OUTSIDE RECORDS SUMMARY | ~2019-12-13 | XMS | Encounter Summary ---
Demographics + + + | Address | [address] | | | [place] [address] | + + + | Home Phone [...] Providers + +------+ + | Care Equal Employment Opportunity Officer Name | Role | Phone | [...] + | 02/03/ | Refill | [facility] | Alanis, | Medication Refill | | 2017 | | MEDICINE [address] | MD [place] | | | | | [place], | [address] [facility] | | | | | [place] [address] | [place] [address] | | | | | [phone] | [phone] | | | | | | | [...] | | | | | [place] [address] | | | | | | [phone] | | | | | | | | +--------+---------+ + + + | 12/20/ | Office | Otolaryngology | Ulysses Genao MD | | | 2019 | Visit | | [address] | | | | | | [address] [place] | | | | | | [place] [address] | | | | | | [phone] | | | | | | | | +--------+---------+ + + + | 02/15/ | Office | Internal Medicine | Alanis, | | | 2019 | Visit | | MD [place] | | | | | | [address] [place] | | | | | | [place] [address] | | | | | | [phone] | | | | | | | | +--------+---------+ + + + documented as of this encounter Visit Diagnoses Not on filedocumented in this encounter"
--- OUTSIDE RECORDS SUMMARY | ~2019-12-13 | XMS | Encounter Summary ---
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 Diagnosis: Braman I: 1. (296.32) Major depressive disorder, recurrent, moderate. 2. (309.24) Adjustment disorder with anxiety. 3. 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 Braman II: Deferred Braman III: abdominal pain, migraine headache, low back pain. Braman IV: low finances Braman V: GAF 55-60 Plan: Return with next medical follow-up appointment. Check mood, knee surgery, pacing, relaxati on, activity, distraction. Continue cognitive/behavioral therapy. Discuss need for further sessions. Total time spent with patient was approximately 45 minutes. LUKASZ CHARLES PHD [facility] [address] [facility], [address] [place] [address] documented in this encount er Plan of [...]
--- OUTSIDE RECORDS SUMMARY | ~2019-12-13 | XMS | Encounter Summary ---
Demographics + + + | Address | [address] | | | [place] [address] | + + + | Home Phone [...] Team Providers + +------+ + | Care Toxicology Teacher Name | Role | Phone | [...] as of this encounter Progress Notes Interface, Water Fitness Instructor In - 09/13/2005 2:06 AM PST [id number] [facility] Date: 12/12/2004 Clinic: Endocrinology [...] cushion which I have ordered today through [employer], phone #[phone] and fax #[phone]. Today, the patient will monitor the decubiti closely and will be in touch with myself and her other physician depending on the progress. She also still has [address], which may be removed in one or two weeks when she returns to the Surgery Clinic at [facility]. Beto Meeks M.D. PD / HS [id number] / [id number] / [id number] / [id number] cc: Chris Padgett M.D. Electronically signed by Beto Meeks 09-12-2005 02:22:31 AM documented i n this encounter Plan of Treatment Not on filedocumented as of this encounter Visit Diagnoses Not on filedocumented in this encounter"
--- OUTSIDE RECORDS SUMMARY | ~2019-12-13 | XMS | Encounter Summary ---
Demographics + + + | Address | [address] | | | [place] [address] | + + + | Home Phone [...] Providers + +------+ + | Care Scientific Software Engineer Name | Role | Phone [...] Required | | paroxysmal | [address] | [facility] | | | | | positional | [address] | [address] | | | | | vertigo, | [place] | AVE | | | | | left | [place], [place] | [place], [place] | | | | | Vertigo of | [address] | [address] | | | | | central | Phone: | Phone: | | | | | origin, left | [phone] | [phone] | | | | | | Fax: | Fax: | | | | | | [phone] | [phone] | +--------+ + + + + + + + | Scheduling Instructions | + + | Patient is going to be having an Tayler maneuver done and at [facility]. | + + Encounter Details +--------+ + + + + | Date | Type | Department | Care Team | Description | +--------+ + + + + | 12/11/ | Orders Only | [facility] | Ulysses Genao MD | Benign paroxysmal | | 2015 | | OTOLARYNGOLOGY [address] | [address] | positional vertigo, | | | | [address] | [address] [place] | left (Primary Dx); | | | | [place] | [place] [address] | Vertigo of central | | | | [address] | [phone] | origin, left | | | | [phone] | | | +--------+ + + + [...] | | | | | [place] [address] | | | | | | [phone] | | | | | | | | +--------+---------+ + + + | 12/20/ | Office | Otolaryngology | Ulysses Genao MD | | | 2019 | Visit | | [address] | | | | | | [address] [place] | | | | | | [place] [address] | | | | | | [phone] | | | | | | | | +--------+---------+ + + + | 02/15/ | Office | Internal Medicine | Alanis, | | | 2019 | Visit | | MD [place] | | | | | | [address] [place] | | | | | | [place] [address] | | | | | | [phone] | | | | | | | [...]
--- OUTSIDE RECORDS SUMMARY | ~2019-12-13 | XMS | Encounter Summary ---
Demographics + + + | Address | [address] | | | [place] [address] | + + + | Home Phone [...] Providers + +------+ + | Care Grinder Watch Parts Name | Role | Phone | + +------+ + | Pedrito Gutirerez MD | PCP | | + +------+ + Reason for Visit + + + | Reason | Comments | + + + | Memory loss | | + + + Encounter Details +--------+ + + + + | Date | Type | Department | Care Team | Description | +--------+ + + + + | 09/16/ | Telephone | [facility] | Miranda Lambert, | Memory loss | | 2006 | | Pain Center at | ANP | | | | | [facility] | | | | | | [address] | | | | | | Mailcode: CH15P | | | | | | [facility] | | | | | | and Healing, | | | | | | Building | | | | | | Floor [place], [place] | | | | | | [address] | | | | | | [phone] | | | +--------+ + + + [...]
--- OUTSIDE RECORDS SUMMARY | ~2019-12-13 | XMS | Encounter Summary ---
Demographics + + + | Address | [address] | | | [place] [address] | + + + | Home Phone [...] Team Providers + +------+ + | Care Gyroscopic Instrument Tester Name | Role | Phone | [...] [address] | | | | | | [place], [place] | | | | | | [address] | | | | | | [phone] | | | +--------+--------+ + + + [...]
--- OUTSIDE RECORDS SUMMARY | ~2019-12-13 | XMS | Encounter Summary ---
Demographics + + + | Address | [address] | | | [place] [address] | + + + | Home Phone [...] Providers + +------+ + | Care Wire Straightener Name | Role | Phone | [...] + + | 10/18/ | Telephone | [facility] | Ulysses Genao MD | Appointment (MRI) | | 2014 | | OTOLARYNGOLOGY [address] | [address] | | | | | [address] | [address] [place] | | | | | [place] | [place] [address] | | | | | [address] | [phone] | | | | | [phone] | | | +--------+ + + + [...] the [facility]. Patient already's has her follow up with . She is seeing Elisabet MCDONOUGH. Telephone Encounter - Reyna Kuo - 10/19/2014 4:02 PM PDTPatient called she states she got an ok from her insurance for the MRI and they told her they would contact our office to let us know this. Any questions please call patient back at [phone] sign ed by Reyna Kuo at 10/19/2014 4:09 PM PDTTelephone Encounter - Roz Morris - 015 4:55 PM PDTPatient called in asking if her appointment at [facility] has been made. Kevin rodriguez said [...] | | | | | [place] [address] | | | | | | [phone] | | | | | | | | +--------+---------+ + + + | 12/20/ | Office | Otolaryngology | Ulysses Genao MD | | | 2019 | Visit | | [address] | | | | | | [address] [place] | | | | | | [place] [address] | | | | | | [phone] | | | | | | | | +--------+---------+ + + + | 02/15/ | Office | Internal Medicine | Alanis, | | | 2019 | Visit | | MD [place] | | | | | | [address] [place] | | | | | | [place] [address] | | | | | | [phone] | | | | | | | | +--------+---------+ + + + documented as of this encounter Visit Diagnoses Not on filedocumented in this encounter"
--- OUTSIDE RECORDS SUMMARY | ~2019-12-13 | XMS | Encounter Summary ---
Demographics + + + | Address | [address] | | | [place] [address] | + + + | Home Phone [...] + +------+ + | Care Manager Medical Affairs Name | Role | Phone | [...] + + | 01/04/ | Office | 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 female [facility] [...] [facility] Mail code CH 4P [facility] and [place] [address] [facility] [address] Ailyn Foster - 01/05/20 07 [...] medication refills today? yes [facility] Plan of Treatment Not on filedocumented [...]
--- OUTSIDE RECORDS SUMMARY | ~2019-12-13 | XMS | Encounter Summary ---
Demographics + + + | Address | [address] | | | [place] [address] | + + + | Home Phone [...] + | 08/24/ | Telephone | [facility] INTERNAL | Alanis, | Toe Pain | | 2018 | | MEDICINE [address] | MD [place]rona | | | | | MALIK RIOS, | [address] [facility] | | | | | [place] [address] | [place] [address] | | | | | [phone] | [phone] | | | | | | | [...] PDTPatient notified of x-ray order faxed to [facility] 19 4:51 PM PDTTelephone Encounter - Petrona [...] to be ordered an d sent to [facility] advise. documented in this encounter [...] | | | | | [place] [address] | | | | | | [phone] | | | | | | | | +--------+---------+ + + + | 12/20/ | Office | Otolaryngology | Ulysses Genao MD | | | 2019 | Visit | | [address] | | | | | | [address] [place] | | | | | | [place] [address] | | | | | | [phone] | | | | | | | | +--------+---------+ + + + | 02/15/ | Office | Internal Medicine | Alanis, | | | 2019 | Visit | | MD [place] | | | | | | [address] [place] | | | | | | [place] [address] | | | | | | [phone] | | | | | | | [...]
--- OUTSIDE RECORDS SUMMARY | ~2019-12-13 | XMS | Encounter Summary ---
Demographics + + + | Address | [address] | | | [place] [address] | + + + | Home Phone [...] Team Providers + +------+ + | Care Batcher Operator Name | Role | Phone | [...] | | | | | Clementina Winkler [place], | | | | | | [place] [address] | | | | | | [phone] | | +--------+ + + + + [...]
--- OUTSIDE RECORDS SUMMARY | ~2019-12-13 | XMS | Encounter Summary ---
Demographics + + + | Address | [address] | | | [place] [address] | + + + | Home Phone [...] Providers + +------+ + | Care Merchandise Flow Team Member Name | Role | Phone [...] | | 2006 | Visit | Center [facility] | [address] | Pain; Cervical Pain; | | | | [place] [address] [place], | Pain in Joint, Site | | | | [address] Mailcode: | [place] [address] | Unspecified; | | | | [facility] [place] for | | Depression | | | | Health and Healing, | | | | | | Building | | | | | | Floor [place], [place] | | | | | | [address] | | | | | | [phone] | | | +--------+---------+ + + + [...] EVALUATION NOTE Date: 06/23/2006 Name: Belinda Meehan [id number] y.o. female Start of Care: 06/23/2005 [...] the last few gregory hs. Handedness: right [place]: [place], [place] Chief Complaint: Headaches and cervical pain, bilateral [...] PLAN: Establish complete plan of care with Mirnada Lambert NGia and Dr. Andres Ogden, psycholog [...]
--- OUTSIDE RECORDS SUMMARY | ~2019-12-13 | XMS | Encounter Summary ---
Demographics + + + | Address | [address] | | | [place] [address] | + + + | Home Phone [...] Team Providers + +------+ + | Care Submarine Cable Equipment Technician Name | Role | Phone | + +------+ + | Sulaiman Carrera MD | PCP | | + +------+ + Encounter Details +--------+ + + + + | Date | Type | Department | Care Team | Description | +--------+ + + + + | 10/05/ | Ancillary | Registration [address] | Ramon Ibarra, | | | 2006 | Registratio | [facility] Naeem Mcrae | [address] [facility] | | | | n | [address] Mailcode: RPB07 | [place], [place] | | | | | [place], [place] | [address] | | | | | [address] | [phone] | | | | | [phone] | | | +--------+ + + + [...]
--- OUTSIDE RECORDS SUMMARY | ~2019-12-13 | XMS | Encounter Summary ---
Demographics + + + | Address | [address] | | | [place] [address] | + + + | Home Phone [...] Team Providers + +------+ + | Care Outboard Motors Experimental Mechanic Name | Role | Phone | [...] | Pain | Diagnoses | Miracle, | [place], | | | | Management | LBP (low | NIHARIKA Jean | Lukasz Rhodes, PhD | | | | | back pain) | [address] | [address] | | | | | DJD | [address] | Ave | | | | | (degenerativ | [place], [place] | [place] | | | | | e joint | [address] | [address] | | | | | disease) of | | Phone: | | | | | knee Knee | | [phone] | | | | | pain Major | | Fax: | | | | | depressive | | [phone] | | | | | disorder, | [...] 11/23/ | Office | Pain Center at [facility] | Lukasz Charles, | Major Depressive | | 2007 | Visit | [address] | PhD [address] | Disorder, Recurrent | | | | Mailcode: 15P | [place], [place] | Episode, Moderate | | | | [place] for [facility] | [address] | ([facility]); LBP (Low Back | | | | and Healing, | [phone] | Pain); Bilateral | | | | | | Knee Pain; | | | | Floor [place], [place] | | Adjustment Disorder | | | | [address] | | with Anxiety | | | | [phone] | | | +--------+---------+ + + + [...] frustra tion by being less active. Diagnosis: [place] I: 1. (296.32) Major depressive disorder, recurrent, moderate. 2. (309.24) Adjustment disorder with anxiety. 3. 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 [place] II: Deferred [place] III: abdominal pain, migraine headache, low back pain. [place] IV: low finances [place] V: GAF 55-60 Plan: return with next medical follow-up appointment. Check mood, abdominal pain, relaxat ion, activity, distraction. Continue cognitive/behavioral therapy. Total time spent with patient was approximately 45 minutes. LUKASZ CHARLES [facility] Comprehensive Pain Center [address] [facility], [address]th [place] [address] documented in this encount er Plan of [...]
--- OUTSIDE RECORDS SUMMARY | ~2019-12-13 | XMS | Encounter Summary ---
Demographics + + + | Address | [address] | | | [place] [address] | + + + | Home Phone [...] Providers + +------+ + | Care Structural Biologist Name | Role | Phone | [...] | | type | [place] | [address] | | | | | | , MD [address] | [place], | | | | | | [address] | [place] [address] | | | | | | [place], | Phone: | | | | | | [place] | [phone] | | | | | | [address] | Fax: | | | | | | Phone: | [phone] | | | | | | [phone] | | | | | | | Fax: | | | | | | | [phone] | | +--------+ + + + + [...] | (Primary Dx) | | | | [place] [address] | [place] [address] | | | | | [phone] | [phone] | | | | | | | [...] | | | | | [place] [address] | | | | | | [phone] | | | | | | | | +--------+---------+ + + + | 12/20/ | Office | Otolaryngology | Ulysses Genao MD | | | 2019 | Visit | | [address] | | | | | | [address] [place] | | | | | | [place] [address] | | | | | | [phone] | | | | | | | | +--------+---------+ + + + | 02/15/ | Office | Internal Medicine | Alanis, | | | 2019 | Visit | | MD [place] | | | | | | [address] [place] | | | | | | [place] [address] | | | | | | [phone] | | | | | | | [...]
--- OUTSIDE RECORDS SUMMARY | ~2019-12-13 | XMS | Encounter Summary ---
Demographics + + + | Address | [address] | | | [place] [address] | + + + | Home Phone [...] Team Providers + +------+ + | Care Aperture Mask Etcher Name | Role | Phone | [...] Lab findings, | | 2007 | | [place] [address] | [address] | teaching, guidance, | | | | Ave Mailcode: [place] | [address] | and counseling (labs | | | | [facility] | [place], [place] | done on 07/01/07) | | | | and Healing, | [address] | | | | | [facility] | [phone] | | | | | [place], [place] | | | | | | [address] | | | | | | [phone] | | | +--------+ + + + [...]
--- OUTSIDE RECORDS SUMMARY | ~2019-12-13 | XMS | Encounter Summary ---
[...] Team Providers + +------+ + | Care Treasury Agent Name | Role | Phone | [...] | | | Metabolism | bypass | [address] | [address] | | | | | Hypovitamino | [address], | Ave | | | | | sis D B12 | [address] | [place], [place] | | | | | nutritional | [place], [place] | [address] | | | | | deficiency | [address] | Phone: | | | | | Other | Phone: | [phone] | | | | | protein-jose manuel | [phone] | Fax: | | | | | nick | Fax: | [phone] | | | | | malnutrition | [phone] | | | | | | Weight | | | | | | | gain | | | | | | | Procedures | | | | | | | CONSULT TO | | | | | | | ENDO | | | | | | | [address] | | | +--------+--------+ + + + [...] | | | [facility] | [place], [place] | (Primary Dx); | | | | [address] | [address] | Metabolic syndrome X | | | | [address] | [phone] | 250.80; Essential | | | | [facility] | | hypertension 401.9; | | | | Physician's | | Unstable balance | | | | Pavilion [place], | | | | | | [place] [address] | | | | | | [phone] | | | +--------+---------+ + + + [...] Hives Mainly in the legs Clindamycin Codeine Ywssuzl-Atbzmtiypa-Tek-Caff Balance problems Fioricet W/Codeine (Knslfqweeq-Gnqhisklwx-Yqp-Cod) Keflex (Cephalexin) Morphine IM ( only in [place] [...] U/L 41 ANION GAP 8 VITAMIN B12, [id number] pg/ml >2000 (H) HEMOGLOBIN A1C <=5.6 % [...] SERUM 15.0-85.0 pg/ml 222.9 (H) VITAMIN B12, [id number] pg/ml > 2000 HEMOGLOBIN A1C <=5.6 % [...] home vi a a long drive to [place]. She needs further evaluation of her right hip and WEB SOLUTIONS ARCHITECT. This c an be most easily accomplished [...] | + +--------+ + + + | [place]CTION | Routin | 08/09/2013 | IGT [...] MARQUAM | [address] | [place], [place] | | | [facility]ARE | [address] | [address] | | | TESTS | | | [...] VERONICA | [address] | [place], [place] | | | [facility] | [address] | [address] | | | TESTS | | | [...]
--- OUTSIDE RECORDS SUMMARY | ~2019-12-13 | XMS | Encounter Summary ---
Demographics + + + | Address | [address] | | | [place] [address] | + + + | Home Phone [...] Team Providers + +------+ + | Care Protocol Officer Name | Role | Phone | [...]
--- OUTSIDE RECORDS SUMMARY | ~2019-12-13 | XMS | Encounter Summary ---
Demographics + + + | Address | [address] | | | [place] [address] | + + + | Home Phone [...] Team Providers + +------+ + | Care Pizza Delivery Driver Name | Role | Phone [...] as of this encounter Progress Notes Interface, Decaler In - 01/12/2005 9:01 AM PDT [id number] [facility] Date: 05/20/2004 Clinic: Morbid [...] Surgery Chris Padgett M.D. MS / HS [id number] / [id number] / [id number] / [id number] documented i n this encounter Plan of Treatment Not on filedocumented as of this encounter Visit Diagnoses Not on filedocumented in this encounter"
--- OUTSIDE RECORDS SUMMARY | ~2019-12-13 | XMS | Encounter Summary ---
[...] Providers + +------+ + | Care Nursing Services Manager Name | Role | Phone [...] [facility] | | | | | | [facility] | | | | | | and Healing, | | | | | | Building 1, [address]th | | | | | | Floor [place], [place] | | | | | | [address] | | | | | | [phone] | | | +--------+ + + + [...]
--- OUTSIDE RECORDS SUMMARY | ~2019-12-13 | XMS | Encounter Summary ---
Demographics + + + | Address | [address] | | | [place] [address] | + + + | Home Phone [...] Providers + +------+ + | Care Sales Vice President Name | Role | Phone | + +------+ + | Sulaiman Carrera MD | PCP | | + +------+ + Encounter Details +--------+ + + + + | Date | Type | Department | Care Team | Description | +--------+ + + + + | 07/24/ | Ancillary | Registration 3181 | [place], | | | 2006 | Registratio | [facility] | MD Lukasz [address] | | | [address] | [address] Mailcode: RPB07 | [place], | | | | | [place], [place] | [place] [address] | | | | | [address] | [phone] | | | | | [phone] | | | +--------+ + + + [...] | | | | | performed at [place] | | | | | | Pho[facility]be [facility] [...] + + + + | [facility] | [address] | [place] [address] | | | LABORATORY | | | [...] [facility] DEPARTMENT OF | [address] | [place] [address] | | | PATHOLOGY | [address] | | | + + + + + | [facility] DEPARTMENT OF | [address] | [place] [address] | | | PATHOLOGY | [address] [...] DEPARTMENT OF | [address] | [place] [address] | | | PATHOLOGY | [address] | | | + + + + + | [facility] DEPARTMENT OF | [address] [facility] | [place] [address] | | | PATHOLOGY | [address] [...] | [address] | [place] [address] | | | PATHOLOGY | [address] | | | + + + + + | [facility] DEPARTMENT OF | [address] | [place] [address] | | | PATHOLOGY | [address] | | | + + + + + PROTHROMBIN TIME (07/24/2005 5:03 PM PST) + + + + + + | Component | Value | Ref Range | Performed | Pathologist | | | | | At | Signature | + + + + + + | INR | 0.97Comment: | 0.90 - 1.20 INR | [facility] | | | | PT INR [...] + | [facility] | [address] | [place] [address] | | | PATHOLOGY | [address] | | | + + + + + | [facility] DEPARTMENT OF | [address] | [place] [address] | | | PATHOLOGY | [address] [...] + | [facility] | [address] | [place] [address] | | | PATHOLOGY | [address] | | | + + + + + | [facility] | [address] | [place] [address] | | | PATHOLOGY | [address] | | | + + + + + documented in this encounter Visit Diagnoses Not on filedocumented in this encounter"
--- OUTSIDE RECORDS SUMMARY | ~2019-12-13 | XMS | Encounter Summary ---
Demographics + + + | Address | [address] | | | [place] [address] | + + + | Home Phone [...] | Pain | Diagnoses | Miracle, | [place], | | | | Management | LBP (low | NIHARIKA Jean | Lukasz Rhodes, PhD | | | | | back pain) | [address] | [address] | | | | | DJD | [address] | Ave | | | | | (degenerativ | [place], [place] | [place], [place] | | | | | e joint | [address] | [address] | | | | | disease) of | | Phone: | | | | | knee Knee | | [phone] | | | | | pain Major | | Fax: | | | | | depressive | | [phone] | | | | | disorder, | [...] 04/28/ | Office | [facility] at [facility] | Lukasz Charles, | Major Depressive | | 2007 | Visit | [address] | PhD [address] | Disorder, Recurrent | | | | Mailcode: CH15P | [place], [place] | Episode, Mild (HCC); | | | | [place] [facility] | [address] | LBP (Low Back | | | | and Healing, | [phone] | Pain); Migraine | | | | | | Headache | | | | Floor [place], [place] | | | | | | [address] | | | | | | [phone] | | | +--------+---------+ + + + [...] documented as of this encounter Progress Notes Luksaz Charles - 04/28/2008 8:59 AM PSTPROGRESS NOTE: [...] scheduled to come here after surgery. Diagnosis: [place] I: 1. (296.31) Major depressive disorder, recurrent, mild. 2. (309.24) Adjustment disorder with anxiety. 3. 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 [place] II: Deferred [place] III: abdominal pain, migraine headache, low back pain. [place] IV: low finances [place] V: GAF 55-60 Plan: return with next medical follow-up appointment. Check mood, pain, surgical recovery , relaxation, activity, distraction, eating. Ask about headaches, fainting, Thanksgiving. Continue cognitive/behavioral therapy. Total time spent with patient was approximately 45 minutes. LUKASZ CHARLES PHD [facility] [address] [facility], [address]th [place] [address] documented in this encount er Plan of Treatment + + +--------+ + + | Name | Type | Priori | Associated Diagnoses | Order Schedule | | | | ty | | | + + +--------+ + + | [facility], | Procedures | Routin | Major Depressive | Ordered: 04/28/2008 | | OFFICE (19-52) | | e | Disorder, Recurrent | [...]
--- OUTSIDE RECORDS SUMMARY | ~2019-12-13 | XMS | Encounter Summary ---
Demographics + + + | Address | [address] | | | [place] [address] | + + + | Home Phone [...] | Pain | Diagnoses | Emmy | Foil Wrapper Chh1 | | | | Management | [...] | | | | | Meniere's | [address] | Building | | | | | disease, | Phone: | 1,15th Floor | | | | | bilateral | [phone] | [place], [place] | | | | | Rheumatoid | Fax: | [address] | | | | | arthritis, | [phone] | Phone: | | | | | unspecified | | [phone] | | | | | | | Fax: | | | | | Postlaminect | | [phone] | | | | | toya | [...] + + | 02/05/ | Office | [facility] Comprehensive | Shalonda Garcia, | Post laminectomy | | 2017 | Visit | Pain Center at | APPLICATIONS SUPPORT SPECIALIST [address] | syndrome (Primary | | | | [facility] | [place], [place] | Dx); Intractable | | | | [address] | [address] | chronic migraine | | | | Mailcode: CH15P | [phone] | without aura and | | | | [place] for [facility] | | with status | | | | and Healing, | | migrainosus; | | | | | | Fibromyalgia | | | | Floor [place], [place] | | | | | | [address] | | | | | | [phone] | | | +--------+---------+ + + + [...] Discuss with your PCP, a referral to [facility] for discussion regarding spinal cord stimulator Shalonda Mustafa DNP, APPLICATIONS SUPPORT SPECIALIST-C Adult Pain Service /[facility] [place] [address] documented in this encounter Progress Notes Amie Jing - 02/05/2017 1:35 PM PDT Date: 02/05/2017 was referred for pain management consultation by Sulaiman Whitlock MD [address] [place] [address] Reason for consult: cervical radiculopathy, low back [...] by her primary care pr magdy in [facility]. This provider is currently in [...] patient at a pain cli brigida in [facility], however her insurance changed and she no longer has coverage at this clinic. 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 She feels she is at the point where is not able to determine which medications are hel pful in improving her pain. She endorses incontinence symptoms. She reports there are "days I just want to " because her pain is so bad. 's treatment for this pain complaint has included: MEDICATIONS: - Gabapentin - [place] - Butran - Cymbalta - Fentanyl Patches NON-MEDICATION THERAPIES: - Physical Therapy - Exercise - Heat/Ice - Pool Therapy - Brace/Support - TENS INTERVENTIONS: - Spinal surgery x3, Laminectomy unknown level - Epidural Steroid Injections - Trigger Point Injections lives in a single family home in [place], [place]. She is not currently working , she receives disability. As a result of her pain, notes multiple changes in her life, including limiting her ability to perform routine tasks. 's goals from today's appointment include: consultation only (advice only to you and your primary care physician), counseling, drug treatment, help in coping with the pain a nd stress management. 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 Headache HTN (hypertension) Hypothyroidism 11/11/2006 IBS (irritable bowel syndrome) Internal hemorrhoid Kidney stone Major depressive disorder, recurrent episode, moderate ([facility]) 07/31/2006 Metabolic syndrome X 250.80 Metabolic syndrome X 250.80 Optic nerve hemorrhage left eye Other general symptoms Pneumonia PUD (peptic ulcer disease) RA (rheumatoid arthritis) ([facility]) Radiculitis, lumbosacral 03/03/2008 Reduced vision Scoliosis Sleep apnea Spondylosis with myelopathy, lumbar region 07/02/2006 Vertebral fracture T7,8,9 Xray T spine 2003 Past Surgical History Procedure Laterality Date Salpingo-oophorectomy Colonoscopy 03/2006 Tonsillectomy Pr d&c after delivery Pr inject trigger point, 1 or 2 Knee replacement 02/2007 Left knee Knee replacement 08/2007 right knee Lumbar fusion 05/2008, '11 & '12 L5-X1qdkejn with bone spur removals Appendectomy Cholecystectomy section [...] Hives Mainly in the legs Clindamycin Codeine Qlnmsiz-Qpbvrpbohu-Ufj-Caff Balance problems Fioricet W/Codeine [Clbopfoiyd-Wbztneeokz-Nnx-Cod] Keflex [Cephalexin] Ketorolac Unknown Morphine IM ( only in [facility] [...] and summary of old medical records (source: [employer] as summarized in the body of the [...] by her primary care pr magdy in [facility]. She reports that this provider [...] Whitlock MD may consider a referral to [facility] for discu ssion regarding spinal cord stimulator -No follow up needed at this time 02/05/2017: I, Kathleen Riley am functioning as a director medical safety for MEGAN Dutta DNP I have reviewed and verified the above scribed note of my visit with this patient as record ed by Kathleen Riley. Shalonda Mustafa DNP, FNP-C Adult Pain Service /[facility] [address] [place] [address] Maris Costa MA - 02/05/2017 1:35 PM [...]
--- OUTSIDE RECORDS SUMMARY | ~2019-12-13 | XMS | Encounter Summary ---
Demographics + + + | Address | [address] | | | [place] [address] | + + + | Home Phone [...] Team Providers + +------+ + | Care Hired Hand Name | Role | Phone | [...] | | Osteoporosis | i, | [address] | | | | | , | [place] | [place], | | | | | unspecified | , MD [address] | [place] [address] | | | | | osteoporosis | [address] | Phone: | | | | | type, | [place], | [phone] | | | | | unspecified | [place] | Fax: | | | | | pathological | [address] | [phone] | | | | | fracture | Phone: | | | | | | presence | [phone] | | | | | | Procedures | Fax: | | | | | | [place] | [phone] | | | | | | ZOLEDRONIC | | | | | | | ACID 1MG | | | +--------+ + + + + + Encounter Details +--------+ + + + + | Date | Type | Department | Care Team | Description | +--------+ + + + + | 07/20/ | Orders Only | [facility] INTER[facility] | Alanis, | Osteoporosis, | | 2017 | | MEDICINE [address] | MD [place] | unspecified | | | | [address] [place], | [address] [facility] | osteoporosis type, | | | | [place] [address] | [place] [address] | unspecified | | | | [phone] | [phone] | pathological | | | | | [...] | | [facility] [address] | | | | | [address] [place] | | | | | | [place] [address] | | | | | | [phone] | | | | | | | | +--------+---------+ + + + | 12/20/ | Office | Otolaryngology | Ulysses Genao MD | | | 2019 | Visit | | [address] | | | | | | [address] [place] | | | | | | [place] [address] | | | | | | [phone] | | | | | | | | +--------+---------+ + + + | 02/15/ | Office | Internal Medicine | Alanis, | | | 2019 | Visit | | MD [place] | | | | | | [address] [place] | | | | | | [place] [address] | | | | | | [phone] | | | | | | | [...]
--- OUTSIDE RECORDS SUMMARY | ~2019-12-13 | XMS | Encounter Summary ---
Demographics + + + | Address | [address] | | | [place] [address] | + + + | Home Phone [...] Providers + +------+ + | Care Book Store Associate Name | Role | Phone | [...] + + | 03/15/ | Telephone | [facility] | Alanis, | Appointment | | 2017 | | MEDICINE [address] | MD [place] | | | | | MAL[place]HAO, | [address] [facility] | | | | | [place] [address] | [place] [address] | | | | | [phone] | [phone] | | | | | | | [...] she is still in the hospital in [place]. Patient stated s he has been in the hospital for over a week now after her emergency bowel surgery. Patient stated she is at [facility], room #115, and would like the [...] | | | | | [place] [address] | | | | | | [phone] | | | | | | | | +--------+---------+ + + + | 12/20/ | Office | Otolaryngology | Ulysses Genao MD | | | 2019 | Visit | | [address] | | | | | | [address] [place] | | | | | | [place] [address] | | | | | | [phone] | | | | | | | | +--------+---------+ + + + | 02/15/ | Office | Internal Medicine | Alanis, | | | 2019 | Visit | | MD [place] | | | | | | [address] [place] | | | | | | [place] [address] | | | | | | [phone] | | | | | | | | +--------+---------+ + + + documented as of this encounter Visit Diagnoses Not on filedocumented in this encounter"
--- OUTSIDE RECORDS SUMMARY | ~2019-12-13 | XMS | Encounter Summary ---
Demographics + + + | Address | [address] | | | [place] [address] [...] as of this encounter Progress Notes Interface, Ammunition Assembly Laborer In - 01/12/2006 1:16 AM PDTCLINIC DATE: 05/24/2002 NEUROM[facility]INIC PRIMARE CARE PROVIDER: Pedrito Gutierrez M.D., [place], [place]. REFERRING PROVIDER : Issac Meeks M.D., [facility] Endocrinology. REASON FOR CONSULTATION: Dr. Meeks recently [...] has some mild associated weakness in her computer assistant. She was told she had carpal tunnel [...] use drugs. 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 She is applying for disability compensation. She lives in [facility] and is currently undergoing a divorce. [...] position sense throughout. Coordination: Fine finger movements, unpboh-nl-qmib, rapid alternating movements, and eylg-qh-jhnm maneuvers are intact though ozpnvn-id-ylgf is limited by poor depth perception due [...] Pete M.D. Neurology/Neuromuscular Fellow TBBuzz / HS [id number] / [id number] / [id number] / cc: Issac Meeks M.D. [facility] Endocrinology Pedrito Gutierrez M.D. [address] [place] [id number] signed by Interface, Ammunition Assembly Laborer In at 01/12/2006 1:1 6 AM PDTdocumented in this encounter Plan of Treatment Not on filedocumented as of this encounter Visit Diagnoses Not on filedocumented in this encounter
--- OUTSIDE RECORDS SUMMARY | ~2019-12-13 | XMS | Encounter Summary ---
Demographics + + + | Address | [address] | | | [place] [address] | + + + | Home Phone [...] Team Providers + +------+ + | Care Right Of Way Man Name | Role | Phone | [...] | | | | | | | [address] | | | | | | | [place] | | | | | | | [facility] | | | | | | | [place], [place] | | | | | | | [address] | | | | | | | Phone: | | | | | | | [phone] | | | | | | | Fax: | | | | | | | [phone] | +--------+--------+ + + + + Encounter Details +--------+ + + + + | Date | Type | Department | Care Team | Description | +--------+ + + + + | 02/22/ | Hospital | [facility] [address] | Hai Hoyos, | | | 2008 | Encounter | [address] | | | | | | [address] [place] | | | | | | [place], | | | | | | [place] [address] | | | | | | [phone] | | | +--------+ + + + [...] Brief Hospital Course: Patient was admitted to [facility] short stay surgery. Patient was taken [...] business hours at or page the orthopedist rhinestone setter after regular business hours at [phone]. If you have any of the following: [...] at . Follow Up Tests: (Tests at [facility] must be entered into SlideMail) none Condition On Discharge: stable Vital Signs [...] Brief Hospital Course: Patient was admitted to [facility] short stay surgery. Patient was taken [...] business hours at or page the orthopedist rhinestone setter after regular business hours at [phone]. If you have any of the following: [...] at . Follow Up Tests: (Tests at [facility] must be entered into Epic) none [...] | [facility] | [address] | [place] [address] | | | PATHOLOGY | [address] [...] [facility]ABIL[facility] | [address] | [place] [address] | | | PATHOLOGY | [address] [...] | | | | | performed at [facility] | | | | | | [facility] | | | | | | Laboratory. [...] [facility] | [address] | [place] [address] | | | PATHOLOGY | [address] [...] [facility]AB[facility] | [address] | [place] [address] | | | PATHOLOGY | [address] [...] | | | | | performed at [facility] | | | | | | [facility] | | | | | | Laboratory | | | | + + + + + + + + | Specimen | + + | | + + + + + + + | Performing | Address | City/State/Zipcode | Phone Number | | Organization | | | | + + + + + | [facility] | [address] | [place] [address] | | | PATHOLOGY | [address] [...] RE[facility]ABIL[facility]ATION [facility] | [address] | [place] [address] | | | PATHOLOGY | [address] [...] Lab) | | | | | | [facility] | | | | | | [address] [place] | | | | | | [address] | | | | | | [place] [address] | | | | + + + + + + + + | Specimen | + + | | + + + + + + + | Performing | Address | City/State/Zipcode | Phone Number | | Organization | | | | + + + + + | [facility] | [address] | [place] [address] | | | PATHOLOGY | [address] [...] Performed At | + + + | [id number] | | | [id number] | | | [facility] [id number] | | | Date: 02/22/2009 Attending Surgeon: | | | Hai Hoyos MD Nonprofit Director(s): | | | Shantel Whipple Preoperative | | | Diagnosis(es): Left symptomatic scapula lesion. Postoperative | | | Diagnosis(es): Left symptomatic scapula lesion. Procedures | | | Performed: 1. Curettage and bone grafting of the left scapular | | | lesion. 2. Open biopsy, left scapular lesion. | | | Donna Clancy served as my assistant store manager because no other qualified | | | [...] | aforementioned. MD ARTIS Wei / SHARIF [id number] / | | | [id number] / [id number] / | | + + + + + | Procedure Note | + + | Hai Hoyos MD - 02/22/2009 12:00 AM PDT [id number] | | [id number] [facility] | | [id number] Date: 02/22/2009 Attending Surgeon: Hai | | MD Romain Nonprofit Director(s): Raj Whipple. Preoperative | | Diagnosis(es):Left symptomatic scapula lesion. Postoperative Diagnosis(es):Left | | symptomatic scapula lesion. Procedures Performed:1. Curettage and bone grafting of | | the left scapular lesion.2. Open biopsy, left scapular lesion. Donna Clancy | | served as my assistant store manager because no other qualified help wasavailable. Anesthesia:General [...] plan is as aforementioned. CHARU Wei / [id number] / [id number] / [id number] /D: | | 02/22/2009T: 02/22/2009 | | [...] |Hai Hoyos MD | |ZA / | |[id number] / [id number] / [id number] / | | | | | | [...] DEPARTMENT OF | [address] | [place] [address] | | | PATHOLOGY | [address] | | | + + + + + | [facility] DEPARTMENT OF | [facility] | [place] [address] | | | PATHOLOGY | [address] [...]
--- OUTSIDE RECORDS SUMMARY | ~2019-12-13 | XMS | Encounter Summary ---
Demographics + + + | Address | [address] | | | [place] [address] | + + + | Home Phone [...] Providers + +------+ + | Care Hand Crocheter Name | Role | Phone | + [...] | Transcriptions | + + | Interface, Frog Shaker In - 08/06/2005 2:06 AM PST | | [id number] | | [id number] [facility] | | | | Date: 07/25/2005 | | | | Attending Surgeon: Chris Padgett M.D. | | | | Light Coil Winder(s): Bandar Langley M.D. | | | | [...] | | DT / HS | | [id number] / [id number] / [id number] / [id number] | | | | | | | | | | | | Electronically signed by Chris Padgett 08-05-2005 12:36:41 PM | + + documented in this encounter Visit Diagnoses Not on filedocumented in this encounter"
--- OUTSIDE RECORDS SUMMARY | ~2019-12-13 | XMS | Encounter Summary ---
Demographics + + + | Address | [address] | | | [place] [address] | + + + | Home Phone [...] Providers + +------+ + | Care Implementation Director Name | Role | Phone | [...] as of this encounter Progress Notes Interface, Cake Mixer In - 11/05/2005 2:06 AM PDT [id number] [facility] [id number] Clinic Date: 10/20/2005 Clinic: Bariatric Surgery Clinic Subjective: Ms. Meehan returns today for continued evaluation of her abdominal pain. She has had a gastric bypass followed by a panniculectomy approximately 1 year ago. She has had diffuse sharp and crampy abdominal pain which lasts up to 45 minutes. She says "it takes her breath away." She went to the emergency room at [place] last night and got some IV pain [...] . Wali Valentine M.D. CONNOR / SHARIF [id number] / [id number] / [id number] / [id number] Electronically signed by Luther Valentine 11-04-2005 11:36:40 AM documented i n this encounter Plan of Treatment Not on filedocumented as of this encounter Visit Diagnoses Not on filedocumented in this encounter
--- OUTSIDE RECORDS SUMMARY | ~2019-12-13 | XMS | Encounter Summary ---
Demographics + + + | Address | [address] | | | [place] [address] | + + + | Home Phone [...] as of this encounter Progress Notes Interface, Or Scrub Tech In - 01/12/2005 8:09 AM PDT [id number] [facility] Clinic Date: 10/23/2003 Clinic: Ms. [...] ahead. Chris Padgett M.D. CD / HS [id number] / [id number] / [id number] / [id number] documented i n this encounter Plan of Treatment Not on filedocumented as of this encounter Visit Diagnoses Not on filedocumented in this encounter"
--- OUTSIDE RECORDS SUMMARY | ~2019-12-13 | XMS | Encounter Summary ---
Demographics + + + | Address | [address] | | | [place] [address] | + + + | Home Phone [...] Providers + +------+ + | Care Automobile Detailer Name | Role | Phone | + [...] Other (wondering | | 2008 | | [place] | [address] | ablout colonoscopy) | | | | Ave Mailcode: CH4S | [facility] | | | | | [facility] | [place], [place] | | | | | and [place], | [address] | | | | | [facility] | [phone] | | | | | [place], [place] | | | | | | [address] | | | | | | [phone] | | | +--------+ + + + [...]
--- OUTSIDE RECORDS SUMMARY | ~2019-12-13 | XMS | Encounter Summary ---
Demographics + + + | Address | [address] | | | [place] [address] | + + + | Home Phone [...] Providers + +------+ + | Care Associate Marketing Manager Name | Role | Phone [...] | | | | | laterality | [address] | [address] | | | | | Dysfunction | Phone: | Phone: | | | | | of left | [phone] | [phone] | | | | | eustachian | Fax: | Fax: | | | | | tube | [phone] | [phone] | +--------+ + + + + + [...] [place] | unspecified | | | | [place], [place] | [place] [address] | laterality (Primary | | | | [address] | [phone] | Dx); Dysfunction of | | | | [phone] | | left eustachian tube | +--------+ [...] | | | | | [place] [address] | | | | | | [phone] | | | | | | | | +--------+---------+ + + + | 12/20/ | Office | Otolaryngology | Ulysses Genao MD | | | 2019 | Visit | | [address] | | | | | | [address] [place] | | | | | | [place] [address] | | | | | | [phone] | | | | | | | | +--------+---------+ + + + | 02/15/ | Office | Internal Medicine | Alanis, | | | 2019 | Visit | | MD [place] | | | | | | [address] [place] | | | | | | [place] [address] | | | | | | [phone] | | | | | | | [...]
--- OUTSIDE RECORDS SUMMARY | ~2019-12-13 | XMS | Encounter Summary ---
Demographics + + + | Address | [address] | | | [place] [address] | + + + | Home Phone [...] Providers + +------+ + | Care Watch Crystal Cutter Name | Role | Phone | [...]
--- OUTSIDE RECORDS SUMMARY | ~2019-12-13 | XMS | Encounter Summary ---
Demographics + + + | Address | [address] | | | [place] [address] | + + + | Home Phone [...] Providers + +------+ + | Care Machine Presser Name | Role | Phone | [...] Bilateral Knee | | | | [facility] | | Pain; Arthroplasty | | [...] Migraine Headache; | | | | Floor [place], [place] | | Herniated Lumbar | | | | [address] | | Intervertebral Disc | | | | [phone] | | L4-5; Fibromyalgia | | | [...] Belinda Meehan is a 47 y.o. female [place] [...] diagnostics and lab results. 6. [facility] knee Post arthroplasty physical rehabiliation. 7. Schedule follow up in one month or sooner if needed - The pateint was asked to call the clinic with any concerns or questions. DELFINA MOLINA [facility] Mail code CH 4P [facility] [address] [place] [address] asha Nolasco - 05/28/2007 10:01 AM [...]
--- OUTSIDE RECORDS SUMMARY | ~2019-12-13 | XMS | Encounter Summary ---
Demographics + + + | Address | [address] | | | [place] [address] | + + + | Home Phone [...] Team Providers + +------+ + | Care Directional Driller Name | Role | Phone | [...] | | | Ave Mailcode: CH4S | [facility] | | | | | [facility] | [place], [place] | | | | | and Healing, | [address] | | | | | [place] [address] [facility] | [phone] | | | | | Floor [place], [place] | | | | | | [address] | | | | | | [phone] | | | +--------+ + + + [...]
--- OUTSIDE RECORDS SUMMARY | ~2019-12-13 | XMS | Encounter Summary ---
Demographics + + + | Address | [address] | | | [place] [address] | + + + | Home Phone [...] Team Providers + +------+ + | Care Vest Busheler Name | Role | Phone | [...] + + | 12/28/ | Telephone | [facility] | Alanis, | Radiology | | 2017 | | MEDICINE [address] | MD [place] | Appointment | | | | [place], | [address] [facility] | | | | | [place] [address] | [place] [address] | | | | | [phone] | [phone] | | | | | | | [...] | | | | | [place] [address] | | | | | | [phone] | | | | | | | | +--------+---------+ + + + | 12/20/ | Office | Otolaryngology | Ulysses Genao MD | | | 2019 | Visit | | [address] | | | | | | [address] [place] | | | | | | [place] [address] | | | | | | [phone] | | | | | | | | +--------+---------+ + + + | 02/15/ | Office | Internal Medicine | Alanis, | | | 2019 | Visit | | MD [place] | | | | | | [address] [place] | | | | | | [place] [address] | | | | | | [phone] | | | | | | | | +--------+---------+ + + + documented as of this encounter Visit Diagnoses Not on filedocumented in this encounter"
--- OUTSIDE RECORDS SUMMARY | ~2019-12-13 | XMS | Encounter Summary ---
[...] Providers + +------+ + | Care Grinder Operator Automatic Name | Role | Phone [...] Mychal Kovacs | | | | | [facility] | [place], [place] | | | | | [address] | [address] | | | | | [address] | [phone] | | | | | [facility] | | | | | | Physician's | | | | | | Pavilion [place], | | | | | | [place] [address] | | | | | | [phone] | | | +--------+ + + + [...]
--- OUTSIDE RECORDS SUMMARY | ~2019-12-13 | XMS | Encounter Summary ---
Demographics + + + | Address | [address] | | | [place] [address] | + + + | Home Phone [...] Providers + +------+ + | Care Portable Power Tool Repairer Name | Role | [...] | | | | Clinical Nutrition | [place], [place] | | | | | [address] | [address] | | | | | Loop Mailcode: OPC5 | [phone] | | | | | Outpatient Clinic | | | | | | [facility] | | | | | | [place] [address] | | | | | | [phone] | | | +--------+ + + + [...] + + + | [facility] | [address] | [place] [address] | | | LABORATORY | | | [...] + + + | [facility] | [address] | [place] [address] | | | LABORATORY | | | [...] Blood Test performed by | | | [facility]. | | + + + + + + + + | Performing | Address | City/State/Zipcode | Phone Number | | Organization | | | | + + + + + | [facility] | [address] | [place] [address] | | | LABORATORY | | | | + + + + + documented in this encounter Visit Diagnoses Not on filedocumented in this encounter"
--- OUTSIDE RECORDS SUMMARY | ~2019-12-13 | XMS | Encounter Summary ---
Demographics + + + | Address | [address] | | | [place] [address] | + + + | Home Phone [...] Providers + +------+ + | Care Change Advisor Name | Role | Phone | [...] | | | [facility] | [place], [place] | | | | | [address] | [address] | | | | | [address] | [phone] | | | | | [facility] | | | | | | Physician's | | | | | | Pavilion [place], | | | | | | [place] [address] | | | | | | [phone] | | | +--------+--------+ + + + [...]
--- OUTSIDE RECORDS SUMMARY | ~2019-12-13 | XMS | Encounter Summary ---
Demographics + + + | Address | [address] | | | [place] [address] | + + + | Home Phone [...] Team Providers + +------+ + | Care Billet Heater Name | Role | Phone | [...] | Management | Chronic | Taqueria Strong, MANAGER OF PRODUCTION | Rosi Armijo, ANP | | | | | neck pain | [address] | [address] | | | | | Low back | [place] | [place] | | | | | pain | [place] | [place], [place] | | | | | | [address] | [address] | | | | | | Phone: | | | | | | | [phone] | | | | | | | Fax: | | | | | | | [phone] | | +--------+--------+ + + + + Encounter Details +--------+---------+ + + + | Date | Type | Department | Care Team | Description | +--------+---------+ + + + | 08/09/ | Office | [facility] Comprehensive | Rosi Antonio, | Fibromyalgia | | 2013 | Visit | Pain Center at | ANP | syndrome 729.1 | | | | [facility] | | (Primary Dx); Major | | | | [address] | | depressive disorder, | | | | Mailcode: CH15P | | recurrent episode, | | | | [facility] | | moderate ([facility]); | | | | and Healing, | | Adjustment disorder | | | | Building | | with anxiety; LBP | | | | Floor [place], [place] | | (low back pain); | | | | [address] | | Osteopenia; Chronic | | | | [phone] | | Bilateral Shoulder | | | [...] al. Diabetes Care. 28(1):89-94, 2004; Anca M, HEALTH SYSTEMS ANALYST Drugs. [address] 1:25-30; discussion 45-6, [...] might be different fro m the original. [facility] Comprehensive Pain Center Return Visit 08/09/2013 [...] never going to her local hospital in [place] for any medical evaluations. Belinda is very [...] Overview Note: Surgery 05/15/08 Dr Ricky Garnett [place] JEY karlos to get operative reports Osteopenia 08/24/2007 LBP (Low Back Pain) 03/31/2007 Encounter for Long-Term (Current) Use of Opioids 01/11/2007 Hypothyroidism 11/11/2006 Major Depressive Disorder, Recurrent Episode, Moderate 07/31/2006 Adjustment Disorder with Anxiety 07/31/2006 Iron Deficiency 03/09/2006 Metabolic syndrome X 250.80 Essential hypertension 401.9 Asthma 493.9 Impaired glucose tolerance 790.2 Fibromyalgia syndrome 729.1 Overview Note: <PROVIDER>DAIVDE LIZARRAGA Ms. Meehan completed the Brief Pain Inventory and a pain drawing which I reviewed. [facility] Brief Pain Inventory: (ten= worst [...] regions, she notes pain in her right uatsdin, bilateral shoul crista muscles, left elbow, entire [...] right knee Lumbar fusion 05/2008, ' & L5-J3utwmpn with bone spur removals Appendectomy Cholecystectomy section [...] Hives Mainly in the legs Clindamycin Codeine Rvbhide-Cloewshhyc-Yed-Caff Balance problems Fioricet W/Codeine (Uygsdledji-Vjipzyypeo-Lxs-Cod) Keflex (Cephalexin) Morphine IM ( only in [facility]) made gut pain worse 08/27/06: Trial of oral MSIR caused leg swelling Penicillins Sulfa (Sulfonamide Antibiotics) Tramadol Ms. Meehan reports no side effects. The Review of Systems provided by Ms. Meehan and documented by the [facility] was reviewed. This data was entered [...] al. Diabetes Care. 28(1):89-94, 2004; Anca M, HEALTH SYSTEMS ANALYST Drugs. [address] 1:25-30; discussion 45-6, [...] of which more than 50% was spent abgoh-ip-vkwj in r eviewing pain questionnaire, medical record, [...] | + +---------+ + + | [facility] DEPARTMENT OF | | | [...]
--- OUTSIDE RECORDS SUMMARY | ~2019-12-13 | XMS | Encounter Summary ---
Demographics + + + | Address | [address] | | | [place] [address] | + + + | Home Phone [...] Providers + +------+ + | Care Sales Solutions Associate Name | Role | Phone | [...] as of this encounter Progress Notes Interface, Climatology Teacher In - 10/15/2005 2:06 AM PDT [id number] [facility] Clinic Date: 09/18/2005 Clinic: Ms. [...] about a month. Chris Padgett M.D. / [id number] / [id number] / [id number] / [id number] Electronically signed by Chris Padgett 10-14-2005 08:13:46 AM documented i n this encounter Plan of Treatment Not on filedocumented as of this encounter Visit Diagnoses Not on filedocumented in this encounter"
--- OUTSIDE RECORDS SUMMARY | ~2019-12-13 | XMS | Encounter Summary ---
Demographics + + + | Address | [address] | | | [place] [address] | + + + | Home Phone [...] Providers + +------+ + | Care Huc Name | Role | Phone | + [...] [address] | | | | | | [place], [place] | | | | | | [address] | | | | | | [phone] | | | +--------+ + + + [...]
--- OUTSIDE RECORDS SUMMARY | ~2019-12-13 | XMS | Encounter Summary ---
Demographics + + + | Address | [address] | | | [place] [address] | + + + | Home Phone [...] Providers + +------+ + | Care Engineering Technical Writer Name | Role | Phone | [...] as of this encounter Progress Notes Interface, Franchise Sales Manager In - 01/13/2005 9:03 AM PDT [id number] [facility] Clinic Date: 01/02/2005 Clinic: Endocrinology [...] months. Beto Meeks M.D. PD / HS [id number] / [id number] / [id number] / [id number] cc: Chris Padgett M.D. documented i n this encounter Plan of Treatment Not on filedocumented as of this encounter Visit Diagnoses Not on filedocumented in this encounter"
--- OUTSIDE RECORDS SUMMARY | ~2019-12-13 | XMS | Encounter Summary ---
Demographics + + + | Address | [address] | | | [place] [address] | + + + | Home Phone [...] [place] | | | | | | [address] | | | | | | [phone] | | | +--------+ + + + [...] | | | | | [place] [address] | | | | | | [phone] | | | | | | | | +--------+---------+ + + + | 12/20/ | Office | Otolaryngology | Ulysses Genao MD | | | 2019 | Visit | | [address] | | | | | | [address] [place] | | | | | | [place] [address] | | | | | | [phone] | | | | | | | | +--------+---------+ + + + | 02/15/ | Office | Internal Medicine | Alanis, | | | 2019 | Visit | | MD [place] | | | | | | [address] [place] | | | | | | [place] [address] | | | | | | [phone] | | | | | | | | +--------+---------+ + + + documented as of this encounter Visit Diagnoses Not on filedocumented in this encounter"
--- OUTSIDE RECORDS SUMMARY | ~2019-12-13 | XMS | Encounter Summary ---
Demographics + + + | Address | [address] | | | [place] [address] | + + + | Home Phone [...] Providers + +------+ + | Care Third Mate Name | Role | Phone | + [...] + + | 11/24/ | Telephone | [facility] | Alanis, | Wrist Pain | | 2019 | | MEDICINE [address] | MD [place] | | | | | [place], | [address] [facility] | | | | | [place] [address] | [place] [address] | | | | | [phone] | [phone] | | | | | | | [...] PDTPatient notified of xray order faxed to [facility]. Electronically signed by Maggie Montoya LPN at [...] leyva d to have her come to [place] and see her and possibly have an [...] | | | | | [place] [address] | | | | | | [phone] | | | | | | | | +--------+---------+ + + + | 12/20/ | Office | Otolaryngology | Ulysses Genao MD | | | 2019 | Visit | | [address] | | | | | | [address] [place] | | | | | | [place] [address] | | | | | | [phone] | | | | | | | | +--------+---------+ + + + | 02/15/ | Office | Internal Medicine | Alanis, | | | 2019 | Visit | | MD [place] | | | | | | [address] | | | | | | [place] [address] | | | | | | [phone] | | | | | | | | +--------+---------+ + + + documented as of this encounter Visit Diagnoses Not on filedocumented in this encounter"
--- OUTSIDE RECORDS SUMMARY | ~2019-12-13 | XMS | Encounter Summary ---
Demographics + + + | Address | [address] | | | [place] [address] | + + + | Home Phone [...] + +------+ + | Care High School Coach Name | Role | Phone | [...] | | | | FAMILY | Rd [place], | | | | | | MEDICINE | [place] | | | | | | [address] | [address] | | | | | | [place] | Phone: | | | | | | [place], | [phone] | | | | | | [place] [address] | Fax: | | | | | | Phone: | [phone] | | | | | | [phone] | | | | | | | Fax: | | | | | | | [phone] | | +--------+--------+ + + + + [...] | (Primary Dx) | | | | [place] for [facility] | [place], [place] | | | | | and Healing, | [address] | | | | | [facility] | [phone] | | | | | Floor [place], [place] | | | | | | [address] | | | | | | [phone] | | | +--------+---------+ + + + [...] surgery. She is being followe d with [facility] providers for metabolic syndrome and hypothyroidism - Dr. Meeks, emotional issue s - Dr. Lukasz Ogden, and her PCP in [place]. She has sx of stress urinary incontinence [...] treated. She would like a urology or WELT STITCH CLEANER referral as appropriate. Labs ordered. See in [...] [place] | | | | | | [place] [address] | | | | | | [phone]. | | | | | | Sincere [...] [facility] | [address] | [place], [place] | | | UN[facility] | | [address] | | + + + + + [...] | | | [facility]. | | | | + + + + + + + + | Specimen | + + | | + + + + + + + | Performing | Address | City/State/Zipcode | Phone Number | | Organization | | | | + + + + + | [facility] | [address] | [place] [address] | | | LABORATORY | | | [...] Way Lab) | | | [facility] [place] [address] | | | [place] [address] | | + + + + + + + + | Performing | Address | City/State/Zipcode | Phone Number | | Organization | | | | + + + + + | [facility] | [address] | [place] [address] | | | LABORATORY | | | [...] Way Lab) | | | [facility] [place] [address] | | | [place] [address] | | + + + + + + + + | Performing | Address | City/State/Zipcode | Phone Number | | Organization | | | | + + + + + | [facility] | [address] | [place] [address] | | | LABORATORY | | | [...] Performed At | + + + | [address] Estimated GFR > 60 mL/min/1.73 sq m if non- | [facility] | | [address] Estimated GFR > 60 mL/min/1.73 sq m [...] [facility] DEPARTMENT OF | [address] | [place] [address] | | | PATHOLOGY | [address] | | | + + + + + | [facility] DEPARTMENT OF | [address] | [place] [address] | | | PATHOLOGY | [address] [...] | [facility] | [address] | [place] [address] | | | PATHOLOGY | [address] | | | + + + + + | [facility] | [address] | [place] [address] | | | PATHOLOGY | [address] | | | + + + + + documented in this encounter Visit Diagnoses + + | Diagnosis | + + | Status post bariatric surgery - Primary Bariatric surgery status | + + documented in this encounter"
--- OUTSIDE RECORDS SUMMARY | ~2019-12-13 | XMS | Encounter Summary ---
[...] Team Providers + +------+ + | Care Physician/Internist Name | Role | Phone | + +------+ + | Sulaiman Carrera MD | PCP | | + +------+ + Encounter Details +--------+ + + + + | Date | Type | Department | Care Team | Description | +--------+ + + + + | 08/26/ | Ancillary | Registration [id number] | | | | 2006 | Registratio | [address] | | | | | n | Peterson Mailcode: [id number] | | | | | | [place], [place] | | | | | | [address] | | | | | | [phone] | | | +--------+ + + + [...]
--- OUTSIDE RECORDS SUMMARY | ~2019-12-13 | XMS | Encounter Summary ---
Demographics + + + | Address | [address] | | | [place] [address] | + + + | Home Phone [...] Providers + +------+ + | Care Educational Aid Name | Role | Phone | [...] | | | Stay [address] | [place], [place] | Examination; HTN | | | | [address] | [address] | (Hypertension); | | | | Mailcode: UHN65 | [phone] | Chronic Pain | | | | [facility] | | | | | | [address] [facility] [place] | | | | | | [address] | | | | | | [phone] | | | +--------+---------+ + + + [...] dietary restrictions or a bowel preparation. Your [facility] gical team will give you additional printed [...] PM please call your surgeons' office for [id number]. PARKING Parking for patients and visitors is available in the [facility] Parking structure located across from [...] ADVICE FOR DAY OF SURGERY: Remove nail sammarinese from at least one fingernail (if applicable) [...] surgeries scheduled to take place on the [place] at the [facility]: Surgeries scheduled in the [facility] ([address] [place] [address]): registration is located on the 4th floor of [facility] (Day Surgery). Surgeries scheduled in the [facility]: registration is located on the 9th floor . For surgeries scheduled to take place at the [facility]: registration i s located on the 4th floor (Surgery Center). AVOID THESE MEDICATIONS FOR 7 DAYS BEFORE SURGERY PRODUCTS CONTAINING ASPIRIN [place], Anacin, Anexsia with Codeine, Len nos, Aspirin, Aspirin suppositories, Ascri ptin, Aspergum, Axotal, B-A-C, Baby Aspirin, Lucila, BC Powder, Bexophene, Buffaprin, Bufferi n, Buffinol, Cama-Arthritis Strength, Congespirin, [place], Coricidin, Damason, Darvon, Dristan , Anastasia-Gesic, Digel, Dolprin #3 Tablets, Donatab, Doxaphene, Duragesic, Easprin, Ecotrin, Dipika grin Forte, Emiprin, Emprazil, Equagesic, Equazine M, Excedrin, Fiogesic, Fiorgen PH, Fioric et, Fiorinal, 4-Way Cold Tablet Gemnisyn, Indocin, Liquprin, Lortab ASA, Magnaprin, Marnal, Meprobamate, Midol, Momentum, N orgesic, Umpire, Orphengesic, Pabalate, P-A-C, Percodan, Presalin, Robaxasil, Roxiprin, Bunny eto, Salocol SK-65 Compound, Sine-Aid, Sine-Off,, [place], Supac, Talwin Compound, Trigesic, Tolectin , Traiminicin, Vanquish, ZORprin, Zomax PRODUCTS CONTAINING IBUPROFEN Advil, Aleve, Haltran, Medipren, Midol, Motrin, Naproxyn, Nuprin, Rufen OTHER PRODUCTS WHICH MAY PROMOTE BLEEDING Vitamin E, Gingko Biloba, Marine Fatty Acids, Reading-3 Fish Oil Supplements documented in this encounter [...] + | [facility] DEPARTMENT | [address] [facility] | [place] [address] | | | PATHOLOGY | [address] | | | + + + + + | [facility] DEPARTMENT OF | [address] [facility] | [place] [address] | | | PATHOLOGY | [address] [...] DEPARTMENT OF | [address] | [place] [address] | | | PATHOLOGY | [address] | | | + + + + + | [facility] DEPARTMENT | [address] | [place] [address] | | | PATHOLOGY | [address] [...] | | | DEPARTMENT | | | [place] | | | OF | | | [...] | [facility] | [address] | [place] [address] | | | PATHOLOGY | [address] | | | + + + + + | [facility] | [address] | [place] [address] | | | PATHOLOGY | [address] [...] DEPARTMENT OF | [address] | [place] [address] | | | PATHOLOGY | [address] [place] | | | + + + + + | [place] DEPARTMENT OF | [address] | [place] [address] | | | PATHOLOGY | [address] [...] view image for the detailed interpretation from [employer] results. | CARDIOLOGY | | | | + + + + + + + + | Performing | Address | City/State/Zipcode | Phone Number | | Organization | | | | + + + + + | [facility] DEPT OF | [address] | [place], [place] | | | CARDIOLOGY | [address] | [address] | | + + + + + | [facility] DEPT OF | [address] | [place], [place] | | | CARDIOLOGY | [address] | [address] | | + + + + + [...]
--- OUTSIDE RECORDS SUMMARY | ~2019-12-13 | XMS | Encounter Summary ---
Demographics + + + | Address | [address] | | | [place] [address] | + + + | Home Phone [...] Providers + +------+ + | Care Senior Government Program Analyst Name | Role | Phone | [...]
--- OUTSIDE RECORDS SUMMARY | ~2019-12-13 | XMS | Encounter Summary ---
Demographics + + + | Address | [address] | | | [place] [address] | + + + | Home Phone [...] Providers + +------+ + | Care Spool Salvager Name | Role | Phone | [...] | | | | Sara Kovacs | [facility] | | | | | Mailcode: Center | [place] [address] | | | | | for Health and | [phone] | | | | | Healing, [address] | | | | | | [place], [place] | | | | | | [address] | | | | | | [phone] | | | +--------+ + + + [...]
--- OUTSIDE RECORDS SUMMARY | ~2019-12-13 | XMS | Encounter Summary ---
Demographics + + + | Address | [address] | | | [place] [address] | + + + | Home Phone [...] [address] | | | | | [place], [place] | [place], [place] | | | | | [address] | [address] | | | | | [phone] | [phone] | | | | | | | [...]
--- OUTSIDE RECORDS SUMMARY | ~2019-12-13 | XMS | Encounter Summary ---
Demographics + + + | Address | [address] | | | [place] [address] [...] Providers + +------+ + | Care Collections Manager Name | Role | Phone | [...]
--- OUTSIDE RECORDS SUMMARY | ~2019-12-13 | XMS | Encounter Summary ---
Demographics + + + | Address | [address] | | | [place] [address] | + + + | Home Phone [...] Providers + +------+ + | Care Director Print Name | Role | Phone | + [...]
--- OUTSIDE RECORDS SUMMARY | ~2019-12-13 | XMS | Encounter Summary ---
Demographics + + + | Address | [address] | | | [place] [address] | + + + | Home Phone [...] | Pain | Diagnoses | [place], | [place], | | | | Management | LBP (low | NIHARIKA Jean | Lukasz Rhodes, PhD | | | | | back pain) | [address] | [address] | | | | | DJD | [address] | Ave | | | | | (degenerativ | [place], [place] | [place], [place] | | | | | e joint | [address] | [address] | | | | | disease) of | | Phone: | | | | | knee Knee | | [phone] | | | | | pain Major | | Fax: | | | | | depressive | | [phone] | | | | | disorder, | [...] 06/21/ | Office | Pain Center at [facility] | Lukasz Charles, | Major Depressive | | 2008 | Visit | [address] | PhD [address] | Disorder, Recurrent | | | | Mailcode: CH15P | [place], [place] | Episode, Mild (HCC); | | | | [place] for [facility] | [address] | LBP (Low Back | | | | and Healing, | [phone] | Pain); Migraine | | | | | | Headache | | | | Floor [place], [place] | | | | | | [address] | | | | | | [phone] | | | +--------+---------+ + + + [...] migraine specialist this week. She reported that Taste Filter has done some sewing and she found [...] benefit as she becomes more active. Diagnosis: [place] I: 1. (296.31) Major depressive disorder, recurrent, mild. 2. (309.24) Adjustment disorder with anxiety. 3. 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 [place] II: Deferred [place] III: abdominal pain, migraine headache, low back pain. [place] IV: low finances [place] V: GAF 55-60 Plan: return with next medical follow-up appointment. Check mood, pain, surgical recovery , relaxation, activity, distraction, eating. Ask about headache specialist, physical therap y. Continue cognitive/behavioral therapy. Total time spent with patient was approximately 45 minutes. LUKASZ CHARLES PHD [facility] [address] [facility], [address] [place] [address] documented in this en counter Plan of [...]
--- OUTSIDE RECORDS SUMMARY | ~2019-12-13 | XMS | Encounter Summary ---
Demographics + + + | Address | [address] | | | [place] [address] | + + + | Home Phone [...] Team Providers + +------+ + | Care Featherer Name | Role | Phone | + [...] floor | | | | | | [place], [place] | | | | | | [address] | | | | | | [phone] | | | +--------+------+ + + + [...] + + | [facility] | [address] [facility] | [place] [address] | | | PATHOLOGY | [address] | | | + + + + + | [facility] | [address] [facility] | [place] [address] | | | PATHOLOGY | [address] [...] Performed At | + + + | [id number] Estimated GFR > 60 mL/min/1.73 sq m if non- | [facility] | | [place] [id number] Estimated GFR > 60 mL/min/1.73 sq m if | DEPARTMENT OF | | [place] GFR is estimated using the MDRD equation [...] | [facility] DEPARTMENT | [address] | [place] [address] | | | PATHOLOGY | [address] | | | + + + + + | [facility] | [address] | [place] [address] | | | PATHOLOGY | [address] [...] ([address] Lab) | | | [facility] [place] [address] [facility] | | | [place] [address] | | + + + + + + + + | Performing | Address | City/State/Zipcode | Phone Number | | Organization | | | | + + + + + | [facility] | [address] | [place] [address] | | | LABORATORY | | | [...] ([address] Lab) | | | [facility] [place] [address] | | | [place] [address] | | + + + + + + + + | Performing | Address | City/State/Zipcode | Phone Number | | Organization | | | | + + + + + | [facility] | [address] | [place] [address] | | | LABORATORY | | | | + + + + + documented in this encounter Visit Diagnoses + + | Diagnosis | + + | Hypothyroidism Unspecified hypothyroidism | + + | Edema | + + documented in this encounter"
--- OUTSIDE RECORDS SUMMARY | ~2019-12-13 | XMS | Encounter Summary ---
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 Provider: DELFINA MOLINA ANP Nathalia Keyes - 007 12:04 PM PST Physical Therapy Medicare Progress Note Date: 08/12/2006 Belinda Meehan [id number]. 1960 Start of Care: 06/23/2006 Referring Provider: [...] + + +--------+ + + | [facility] | Procedures | Routin | Spondylosis [...] + + +--------+ + + | [facility] | Procedures | Routin | Spondylosis [...]
--- OUTSIDE RECORDS SUMMARY | ~2019-12-13 | XMS | Encounter Summary ---
Demographics + + + | Address | [address] | | | [place] [address] | + + + | Home Phone [...] Providers + +------+ + | Care Propeller Layout Worker Name | Role | Phone | [...] | | | Metabolism | bypass | [address] | [address] | | | | | Hypovitamino | [address], | Ave | | | | | sis D B12 | [address] | [place], [place] | | | | | nutritional | [place], [place] | [address] | | | | | deficiency | [address] | Phone: | | | | | Other | Phone: | [phone] | | | | | protein-jose manuel | [phone] | Fax: | | | | | nick | Fax: | [phone] | | | | | malnutrition | [phone] | | | | | | Weight | | | | | | | gain | | | | | | | Procedures | | | | | | | CONSULT TO | | | | | | | ENDO | | | | | | | [address] | | | +--------+--------+ + + + [...] [facility] | [place], [place] | (Primary Dx); | | | | [address] | [address] | Metabolic syndrome X | | | | [address] | [phone] | 250.80; Essential | | | | [facility] | | hypertension 401.9; | | | | Physician's | | Unstable balance | | | | Pavilion [place], | | | | | | [place] [address] | | | | | | [phone] | | | +--------+---------+ + + + [...] Hives Mainly in the legs Clindamycin Codeine Jbqtpin-Wiqzdhwvvz-Hxo-Caff Balance problems Fioricet W/Codeine (Wwvupimggl-Sdmqgjjpfc-Hpk-Cod) Keflex (Cephalexin) Morphine IM ( only in [facility]) made gut pain worse [...] U/L 41 ANION GAP 8 VITAMIN B12, [id number] pg/ml >2000 (H) HEMOGLOBIN A1C <=5.6 % [...] SERUM 15.0-85.0 pg/ml 222.9 (H) VITAMIN B12, [id number] pg/ml > 2000 HEMOGLOBIN A1C <=5.6 % [...] home vi a a long drive to [place]. 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 This c an be most easily accomplished [...] + +--------+ + + + | CT COLLECTION | Routin | 08/09/2013 | IGT [...] [facility] | [address] | [place], [place] | | | [facility] [place] OF CARE | [address] | [address] | | | TESTS | | | [...] VERONICA | [address] | [place], [place] | | | [facility] | [address] | [address] | | | TESTS | | | [...]
--- OUTSIDE RECORDS SUMMARY | ~2019-12-13 | XMS | Encounter Summary ---
Demographics + + + | Address | [address] | | | [place] [address] | + + + | Home Phone [...] Providers + +------+ + | Care Well Logging Captain Name | Role | Phone | + +------+ + PCP | Unavailable | + +------+ + Encounter Details +--------+ + + + + | Date | Type | Department | Care Team | Description | +--------+ + + + + | 12/21/ | Results | Rheumatology | Caitlin Rivera, | | | 2003 | Only | [place] [address] | MANAGER OF WAREHOUSE | | | | | Sharmila Schilling | | | | | | Mailcode: OPC5 | | | | | | Outpatient Clinic | | | | | | Building [facility] | | | | | | [place] [address] | | | | | | [phone] | | | +--------+ + + + [...] Iron and TIBC, Serum Test performed by [facility] | | | [facility]. | | + + + + + + + + | Performing | Address | City/State/Zipcode | Phone Number | | Organization | | | | + + + + + | [facility] | [address] | [place] [address] | | | LABORATORY | | | [...] | + + + + + | [facility] | [address] | [place] [address] | | | LABORATORY | | | [...] | | | | | performed at [place] | | | | | | [facility] | | | | | | Laboratory | | | | + + + + + + + + | Specimen | + + | | + + + + + + + | Performing | Address | City/State/Zipcode | Phone Number | | Organization | | | | + + + + + | [facility] | [address] | [place] [address] | | | LABORATORY | | | | + + + + + documented in this encounter Visit Diagnoses Not on filedocumented in this encounter"
--- OUTSIDE RECORDS SUMMARY | ~2019-12-13 | XMS | Encounter Summary ---
Demographics + + + | Address | [address] | | | [place] [address] | + + + | Home Phone [...] Team Providers + +------+ + | Care Trampoline Team Coach Name | Role | Phone | [...] | | | | | Procedures | [place], [place] | [address] [facility] | | | | | CONSULT TO | [address] | [address] | | | | | SURGERY - | | [address] [place], | | | | | GENERAL | | [place] | | | | | | | [address] | | | | | | | Phone: | | | | | | | [phone] | | | | | | | Fax: | | | | | | | [phone] | +--------+--------+ + + + + Encounter Details +--------+ + + + + | Date | Type | Department | Care Team | Description | +--------+ + + + + | 08/31/ | Television Picture Tube Rebuilder | Dig[facility]ive [facility] | Nuris Cardenas ANP | Hemorrhoid (Primary | | 2008 | | Center [address] | | Dx) | | | | [address] | | | | | | Mailcode: [id number] | | | | | | [facility] | | | | | | [place], [place] | | | | | | [address] | | | | | | [phone] | | | +--------+ + + + [...]
--- OUTSIDE RECORDS SUMMARY | ~2019-12-13 | XMS | Encounter Summary ---
Demographics + + + | Address | [address] | | | [place] [address] | + + + | Home Phone [...] + +------+ + | Care Driver License Examiner Name | Role | Phone | + +------+ + | Petrona Thapa | PCP | | | MD | | | + +------+ + Reason for Visit + + + | Reason | Comments | + + + | Medication Refill | | + + + | Infusion | Reclast due approx 07/29/17, last one done at the [facility] | + + + Encounter [...] [place] | pathological | | | | [place] [address] | [place] [address] | fracture presence | | | | [phone] | [phone] | (Primary Dx); | | | | [...] approx 07/29/17, last one done at the [facility] Belinda Meehan is a 57 y.o. [...] She is seeing a pain specialist in [place] and is receiving hydrocodone from them. She needs a refill of Lomotil for chronic diarrhea which she tolerates well. She also reports some discomfort in the left nostril which is plugged most of the time for last several weeks. No fever or chills. No purulent drainage. Has history of allergies. REVIEW OF SYSTEMS See [facility] for further details. Review of systems otherwise negative. PAST MEDICAL HISTORY Past Medical History: Diagnosis Date Arthritis Atypical chest pain Benign essential hypertension Blind left eye Cervical radiculopathy Chronic low back pain 01/04/2015 Chronic neck pain 01/04/2015 Chronic pain Chronic venous insufficiency Coccydynia COPD (chronic obstructive pulmonary disease) ([facility]) Depression Diarrhea Dumping syndrome Fatigue fracture of vertebra Fibromyalgia Glaucoma Hyperparathyroidism ([facility]) [...] 1,000 mcg 1,000 mcg Intramuscular Q30 Days [facility] Maddie Thapa MD 1,000 mcg at 06/01/17 1135 ALLERGIES Allergies Allergen Reactions Codeine Sulfate Nausea Only Levofloxacin Hives, Itching and Rash Amitriptyline Hcl Other (See Comments) Confused and questionable for seizures Ngcymxvrvl-Ukgf-Jnaqktki Cephalexin Hives Duloxetine Migraines and nausea Ketorolac Hives Morphine Swelling Ropinirole Hcl Hives Tramadol Hcl Nausea Only Amnbhsqtog-Seeg-Rtkuscyc Hives and Rash Ciprofloxacin Hives and Rash [...] Note: Parts of this documentwere created using [employer] speech recognition software. As a r esult, [...] | | | | | [place] [address] | | | | | | [phone] | | | | | | | | +--------+---------+ + + + | 12/20/ | Office | Otolaryngology | Ulysses Genao MD | | | 2019 | Visit | | [address] | | | | | | [address] [place] | | | | | | [place] [address] | | | | | | [phone] | | | | | | | | +--------+---------+ + + + | 02/15/ | Office | Internal Medicine | Alanis, | | | 2019 | Visit | | MD [place] | | | | | | [address] | | | | | | [place] [address] | | | | | | [phone] | | | | | | | [...]
--- OUTSIDE RECORDS SUMMARY | ~2019-12-13 | XMS | Encounter Summary ---
Demographics + + + | Address | [address] | | | [place] [address] | + + + | Home Phone [...] | 06/14/ | Refill | [facility] INTER[facility] | Alanis, | Medication Refill | | 2018 | | MEDICINE [address] | MD Petrona | | | | | [place], | [address] | | | | | [place] [address] | [place] [address] | | | | | [phone] | [phone] | | | | | | | [...] | 12/20/ | Office | Audiology | Esarey ElisabetMS | | | 2019 | Visit | | [facility] [address] | | | | | | [address] [place] | | | | | | [place] [address] | | | | | | [phone] | | | | | | | | +--------+---------+ + + + | 12/20/ | Office | Otolaryngology | Ulysses Genao MD | | | 2019 | Visit | | [address] | | | | | | [address] [place] | | | | | | [place] [address] | | | | | | [phone] | | | | | | | | +--------+---------+ + + + | 02/15/ | Office | Internal Medicine | Alanis, | | | 2019 | Visit | | MD Petrona | | | | | | [address] [place] | | | | | | [place] [address] | | | | | | [phone] | | | | | | | | +--------+---------+ + + + documented as of this encounter Visit Diagnoses Not on filedocumented in this encounter"
--- OUTSIDE RECORDS SUMMARY | ~2019-12-13 | XMS | Encounter Summary ---
Demographics + + + | Address | [address] | | | [place] [address] [...] Providers + +------+ + | Care Gun Stock Checker Name | Role | Phone | [...] + + | 11/15/ | Telephone | [facility] INTERNAL | Alanis, | Foot Injury | | 2019 | | MEDICINE [address] | MD Petrona | | | | | MALIK [place], | [address] [facility] | | | | | [place] [address] | [place] [address] | | | | | [phone] | [phone] | | | | | | | [...] seek medical attention at the ED in [facility]. Understands and a ccepts elephone Encount - [...] | | | | | [place] [address] | | | | | | [phone] | | | | | | | | +--------+---------+ + + + | 12/20/ | Office | Otolaryngology | Ulysses Genao MD | | | 2019 | Visit | | [address] | | | | | | [address] [place] | | | | | | [place] [address] | | | | | | [phone] | | | | | | | | +--------+---------+ + + + | 02/15/ | Office | Internal Medicine | Alanis, | | | 2019 | Visit | | MD Petrona | | | | | | [address] [place] | | | | | | [place] [address] | | | | | | [phone] | | | | | | | | +--------+---------+ + + + documented as of this encounter Visit Diagnoses Not on filedocumented in this encounter"
--- OUTSIDE RECORDS SUMMARY | ~2019-12-13 | XMS | Encounter Summary ---
Demographics + + + | Address | [address] | | | [place] [address] | + + + | Home Phone [...] Team Providers + +------+ + | Care Pourer Buggy Ladle Name | Role | Phone | + [...] | Pain | Diagnoses | Miracle, | Refugio, | | | | Management | LBP (low | NIHARIKA Jean | Lukasz Rhodes, PhD | | | | | back pain) | [address] | [address] | | | | | DJD | [address] | Ave | | | | | (degenerativ | [place], [place] | [place] | | | | | e joint | [address] | [address] | | | | | disease) of | | Phone: | | | | | knee Knee | | [phone] | | | | | pain Major | | Fax: | | | | | depressive | | [phone] | | | | | disorder, | [...] 04/13/ | Office | [facility] at [facility] | Lukasz Charles, | Major Depressive | | 2007 | Visit | [address] | PhD [address] | Disorder, Recurrent | | | | Mailcode: 15P | [place], [place] | Episode, Mild (HCC); | | | | [place] [facility] | [address] | LBP (Low Back | | | | and Healing, | [phone] | Pain); Migraine | | | | | | Headache; Adjustment | | | | Floor [place], [place] | | Disorder with | | | | [address] | | Anxiety | | | | [phone] | | | +--------+---------+ + + + [...] plans for her surgical recovery period. Diagnosis: [place] I: 1. (296.31) Major depressive disorder, recurrent, mild. 2. (309.24) Adjustment disorder with anxiety. 3. 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 [place] II: Deferred [place] III: abdominal pain, migraine headache, low back pain. [place] IV: low finances [place] V: GAF 55-60 Plan: return with next medical follow-up appointment. Check mood, pain, relaxation, activ ity, distraction, eating. Ask about headaches, fainting, surgery. Continue cognitive/behav ioral therapy. Total time spent with patient was approximately 45 minutes. LUKASZ CHARLES PHD [facility] [address] [facility] [address] [address] documented in this encount er Plan of Treatment + + +--------+ + + | Name | Type | Priori | Associated Diagnoses | Order Schedule | | | | ty | | | + + +--------+ + + | CO PSYCHOTHERPY, | Procedures | Routin | Major Depressive | Ordered: 04/13/2008 | | OFFICE (19-95) | | e | Disorder, Recurrent | [...]
--- OUTSIDE RECORDS SUMMARY | ~2019-12-13 | XMS | Encounter Summary ---
[...] Team Providers + +------+ + | Care Paleologist Name | Role | Phone | + [...] | | | | | hemorrhoid | [place], [place] | [address] | | | | | Rectal pain | [address] | [facility] | | | | | Procedures | | Rd [place], | | | | | CONSULT TO | | [place] | | | | | COLORECTAL | | [address] | | | | | SURGERY | | Phone: | | | | | | | [phone] | | | | | | | Fax: | | | | | | | [phone] | +--------+--------+ + + + + Encounter [...] | | | | Mailcode: Center | [place], [place] | | | | | and | [address] | | | | | [facility] 2 | [phone] | | | | | [place], [place] | | | | | | [address] | | | | | | [phone] | | | +--------+---------+ + + + [...] stool. She had a normal colonoscopy at [facility] in 2005 PMH: Past Medical History Diagnosis [...] 08/2007 right knee Hx lumbar fusion 05/2008 [id number] with bone spur removals Hx appendectomy Hx [...] (Ciprofloxacin) Tramadol Morphine IM ( only in [facility] [place]) made gut pain worse 08/27/06: Trial of oral MSIR caused leg swelling Clarithromycin Hives Mainly in the legs Ljtxqja-kujhpujntb-hvy-caff Balance problems Amitriptyline Grand mal seizures SH: [...] + + +--------+ + + | [place] [facility] | Procedures | Routin | Anal or Rectal | Ordered: 10/05/2008 | | ANOSCOPY | | e | Pain | | + + +--------+ + + documented as of this encounter Visit Diagnoses + + | Diagnosis | + + | Anal or rectal pain - Primary | + + documented in this encounter
--- OUTSIDE RECORDS SUMMARY | ~2019-12-13 | XMS | Encounter Summary ---
Demographics + + + | Address | [address] | | | [place] [address] | + + + | Home Phone [...]
--- OUTSIDE RECORDS SUMMARY | ~2019-12-13 | XMS | Encounter Summary ---
Demographics + + + | Address | [address] | | | [place] [address] | + + + | Home Phone [...] Providers + +------+ + | Care Veterinary Assistant Technician Name | Role | Phone | [...] | | | | | Procedures | [facility] [place] | [address] | | | | | CONSULT TO | [address] | for Health | | | | | BONE | Phone: | and Healing, | | | | | DENSITOMETRY | [phone] | Building [address] | | | | | | Fax: | [place], [place] | | | | | | [phone] | [address] | | | | | | | Phone: | | | | | | | [phone] | | | | | | | Fax: | | | | | | | [phone] | +--------+ + + + + + [...] | | | [facility] | [place], [place] | [address]pass for Obesity | | | | and Healing, | [address] | | | | | [facility] | [phone] | | | | | Floor [place], [place] | | | | | | [address] | | | | | | [phone] | | | +--------+---------+ + + + [...] + +---------+ + + | [facility] DEPARTMENT OF | | [...]
--- OUTSIDE RECORDS SUMMARY | ~2019-12-13 | XMS | Encounter Summary ---
Demographics + + + | Address | [address] | | | [place] [address] | + + + | Home Phone [...] Providers + +------+ + | Care Territory Manager General Sales Name | Role | Phone | [...] | | | | | Procedures | [address] | | | | | | CONSULT TO | Mychal Kovacs | | | | | | NEUROLOGY | [place], [place] | | | | | | | [address] | | +--------+--------+ + + + + Reason for Visit + + + | Reason | Comments | + + + | Back pain | | + + + Encounter Details +--------+---------+ + + + | Date | Type | Department | Care Team | Description | +--------+---------+ + + + | 10/03/ | Office | [facility] Comprehensive | Miranda Lambert, | Falling; | | 2009 | Visit | Pain Center at | ANP | Fibromyalgia; LBP | | | | [facility] | | (low back pain); | | | | [address] | | Encounter for | | | | Mailcode: CH15P | | Long-Term (Current) | | | | [facility] | | Use of Opioids; | | | | and Healing, | | Hypothyroidism; | | | | | | Metabolic syndrome X | | | | Floor [place], [place] | | 250.80; Major | | | | [address] | | depressive disorder, | | | | [phone] | | recurrent episode, | | | [...] Schedule an appointment with Dr. Cesar SHEEHAN [facility] Neurology - If you continue to [...] Belinda Meehan is a 49 y.o. female [facility] Comprehensive [...] drawing has be completed, which I reviewed. [facility] Brief Pain Inventory: (ten= worst [...] it no help 4. Dr. Ricky SHEEHAN [facility] did spine surgery last seen [...] 08/2007 right knee Hx lumbar fusion 05/2008 [id number] with bone spur removals Hx appendectomy Hx cholecystectomy Hx section Hx hysterectomy Gastric bypass Mayra Padgett wt 278 01/18 Paniculectomy Family History Problem Relation Cancer Mother Heart Father Additional Family History Father Migraine Additional Family History Mother Migraine Taniya Guerrero MD [facility] Neurology 2007 evaluation of migraines: Impression: [...] the names of 3 headache specialists in [place]- Dr. Koby García, Dr. Dakota Sweet and [...] a neurologist Dr. Taniya Guerrero here at [facility] at that time headaches were due to medication rebound with residential use of opioids and m igraine abortive [...] and there is no evidence to support residential benefit of opioids for this pa in condition I would like to see if her headaches will improve in time also. Historically , Belnida has had poor sleep patterns, disturbance with pain and insomnia, Hx of sleep apnea resolved with weight loss after gastric bypass surgery. Cognitive Behavioral therapy, biofe edback, exercise, can help improved sleep. My recommendations are: taper off the gabapentin as instructed, if after a week, falling as not resolved, to schedule a follow up appointment with [facility] neurologists Dr. Guerrero, for falls workup. [...] to taper off gabapentin 2. Order for [facility] neurology Dr. Taniya Guerrero if [...] [facility] Mail code CH 4P [place] [facility] [address] [place] [address] Ailyn Foster 1:03 PM PDTCMA History: [...]
--- OUTSIDE RECORDS SUMMARY | ~2019-12-13 | XMS | Encounter Summary ---
Demographics + + + | Address | [address] | | | [place] [address] | + + + | Home Phone [...] Providers + +------+ + | Care Manager Mechanical Name | Role | Phone | + [...] | | | | | [place]ina [place], | | | | | | [place] [address] | | | | | | [phone] | | +--------+ + + + + [...] | | + +---------+ + + | [facility] DEPARTMENT OF | | | [...] | | + +---------+ + + | [facility] DEPARTMENT OF | | | [...] | | + +---------+ + + | [facility] DEPARTMENT OF | | | | | RADIOLOGY | | | | + +---------+ + + documented in this encounter Visit Diagnoses Not on filedocumented in this encounter"
--- OUTSIDE RECORDS SUMMARY | ~2019-12-13 | XMS | Encounter Summary ---
Demographics + + + | Address | [address] | | | [place] [address] | + + + | Home Phone [...] Team Providers + +------+ + | Care Buttermilk Drier Operator Name | Role | Phone | [...] + | 06/30/ | Refill | [facility] INTERNAL | Alanis, | Medication Refill | | 2018 | | MEDICINE [address] | MD Petrona | | | | | MALIK [place], | [address] | | | | | [place] [address] | [place] [address] | | | | | [phone] | [phone] | | | | | | | [...] | | | | | [place] [address] | | | | | | [phone] | | | | | | | | +--------+---------+ + + + | 12/20/ | Office | Otolaryngology | Ulysses Genao MD | | | 2019 | Visit | | [address] | | | | | | [address] [place] | | | | | | [place] [address] | | | | | | [phone] | | | | | | | | +--------+---------+ + + + | 02/15/ | Office | Internal Medicine | Alanis, | | | 2019 | Visit | | MD Petrona | | | | | | [address] [place] | | | | | | [place] [address] | | | | | | [phone] | | | | | | | | +--------+---------+ + + + documented as of this encounter Visit Diagnoses + + | Diagnosis | + + | Chronic bilateral low back pain without sciatica | + + documented in this encounter"
--- OUTSIDE RECORDS SUMMARY | ~2019-12-13 | XMS | Encounter Summary ---
Demographics + + + | Address | [address] | | | [place] [address] | + + + | Home Phone [...] Team Providers + +------+ + | Care Surveying Technician Name | Role | Phone | + +------+ + | Sulaiman Carrera MD | PCP | | + +------+ + Encounter Details +--------+ + + + + | Date | Type | Department | Care Team | Description | +--------+ + + + + | 07/30/ | Ancillary | Registration 3181 | Beto Meeks MD | | | 2006 | Registratio | [facility] | [address] | | | | n | [place] Mailcode: RPB07 | [place], [place] | | | | | [place], [place] | [address] | | | | | [address] | [phone] | | | | | [phone] | | | +--------+ + + + [...] | | | | | performed by [facility] | pg/mL | | | | | [facility]. | | | | + + + + + + + + | Specimen | + + | | + + + + + + + | Performing | Address | City/State/Zipcode | Phone Number | | Organization | | | | + + + + + | [facility] | [address] | [place] [address] | | | LABORATORY | | | [...] at: | | | | | | [employer] | | | | | | [address] | | | | | | [address] | | | | | | [email or web address] | | | | + + + [...] | [facility] | | [address] | | + + + + + [...] Iron and TIBC, Serum Test performed by [facility] | | | Formerly [facility], 1928–[facility] [employer]. | | + + + + + + + + | Performing | Address | City/State/Zipcode | Phone Number | | Organization | | | | + + + + + | [facility] | [address] | [place] [address] | | | LABORATORY | | | [...] | B12, SERUM | Test performed by [place] | | | | | | [place] [...] | + + + + + | [facility] | [address] | [place] [address] | | | LABORATORY | | | [...] + + + + | [facility] DEPARTMENT OF | [address] | [place] [address] | | | PATHOLOGY | [address] | | | + + + + + | [place] DEPARTMENT OF | [address] | [place] [address] | | | PATHOLOGY | [address] [...] + + + + | [facility] DEPARTMENT OF | [address] | [place] [address] | | | PATHOLOGY | [address] | | | + + + + + | [facility] | [facility] [address] | [place] [address] | | | PATHOLOGY | [address] [...] Performed At | + + + | [id number] Estimated GFR > 60 mL/min/1.73 sq m if non- | [facility] | | [id number] Estimated GFR > 60 mL/min/1.73 sq m [...] + + | [facility] | [address] | [place] [address] | | | PATHOLOGY | [address] | | | + + + + + | [facility] | [address] | [place] [address] | | | PATHOLOGY | [address] | | | + + + + + documented in this encounter Visit Diagnoses Not on filedocumented in this encounter"
--- OUTSIDE RECORDS SUMMARY | ~2019-12-13 | XMS | Encounter Summary ---
Demographics + + + | Address | [address] | | | [place] [address] | + + + | Home Phone [...] Providers + +------+ + | Care Plant Sciences Professor Name | Role | Phone [...] | 2006 | Visit | [facility] at [place] | [address] [place] | (Primary Dx); DJD | | | | for Health and | [place], [place] | (Degenerative Joint | | | | Healing [address] | [address] | Disease) of Left | | | | Ave Mailcode: | [phone] | Knee | | | | CH12A [facility] | | | | | | Health and Healing, | | | | | | [facility] | | | | | | [place], [place] | | | | | | [address] | | | | | | [phone] | | | +--------+---------+ + + + [...] note might be different from lesli gomez. [facility] 09/23/2006 Belinda Meehan [...] a gastri c bypass and is much nursing aide now. She is doing PT as this point. With some benefit. She is concerned because she now has some poppin mahesh dlocking symptoms and wants to know if there si something that in shop service technician be done w ith a scope to [...] (ciprofloxacin) Tramadol Morphine IM ( only in [facility]) made gut pain worse 08/27/06: [...] the MRI. Ramon Ibarra M.D. Sports Medicine [facility] [address] [place], [place] [phone] documented in this encoun ter Plan of [...]
--- OUTSIDE RECORDS SUMMARY | ~2019-12-13 | XMS | Encounter Summary ---
Demographics + + + | Address | [address] | | | [place] [address] | + + + | Home Phone [...] Providers + +------+ + | Care Music Typographer Name | Role | Phone | + [...] [place] | | | | | [address] [place], [place] | [place] [address] | | | | | [address] | [phone] | | | | | [phone] | | | +--------+ + + + [...] | | | | | [place] [address] | | | | | | [phone] | | | | | | | | +--------+---------+ + + + | 12/20/ | Office | Otolaryngology | Ulysses Genao MD | | | 2019 | Visit | | [address] | | | | | | [address] [place] | | | | | | [place] [address] | | | | | | [phone] | | | | | | | | +--------+---------+ + + + | 02/15/ | Office | Internal Medicine | Alanis, | | | 2019 | Visit | | MD [place]rona | | | | | | [address] [place] | | | | | | [place] [address] | | | | | | [phone] | | | | | | | | +--------+---------+ + + + documented as of this encounter Visit Diagnoses Not on filedocumented in this encounter"
--- OUTSIDE RECORDS SUMMARY | ~2019-12-13 | XMS | Encounter Summary ---
Demographics + + + | Address | [address] | | | [place] [address] | + + + | Home Phone [...] Providers + +------+ + | Care Trade Specialist Name | Role | Phone | [...] of this encounter Progress Notes Interface, Filler Feeder In - 01/11/2005 6:26 PM PDTClinic Date: [...] bypass surgery. Dwaine Al M.D. LEDY / [id number] / [id number] / [id number] / Tdocumented in this encounter Plan of Treatment Not on filedocumented as of this encounter Visit Diagnoses Not on filedocumented in this encounter"
--- OUTSIDE RECORDS SUMMARY | ~2019-12-13 | XMS | Encounter Summary ---
Demographics + + + | Address | [address] | | | [place] [address] | + + + | Home Phone [...] Providers + +------+ + | Care Marble Setter Name | Role | Phone | [...] [address] | | | | | [facility] | [place], [place] | | | | | [address] | [address] | | | | | [address] | [phone] | | | | | [facility] | | | | | | Physician's | | | | | | Pavilion [place], | | | | | | [place] [address] | | | | | | [phone] | | | +--------+--------+ + + + [...]
--- OUTSIDE RECORDS SUMMARY | ~2019-12-13 | XMS | Encounter Summary ---
Demographics + + + | Address | [address] | | | [place] [address] | + + + | Home Phone [...] | | | | Clinical Nutrition | [place], [place] | | | | | [address] | [address] | | | | | Loop Mailcode: OPC5 | [phone] | | | | | Outpatient Clinic | | | | | | [facility] | | | | | | [place] [address] | | | | | | [phone] | | | +--------+ + + + [...] [facility] DEPARTMENT OF | [address] | [place] [address] | | | PATHOLOGY | [address] | | | + + + + + | [facility] DEPARTMENT OF | [address] | [place] [address] | | | PATHOLOGY | [address] [...] | [facility] | [address] | [place] [address] | | | PATHOLOGY | [address] | | | + + + + + | [facility] | [address] | [place] [address] | | | PATHOLOGY | [address] | | | + + + + + documented in this encounter Visit Diagnoses Not on filedocumented in this encounter"
--- OUTSIDE RECORDS SUMMARY | ~2019-12-13 | XMS | Encounter Summary ---
Demographics + + + | Address | [address] | | | [place] [address] | + + + | Home Phone [...] Providers + +------+ + | Care Environmental Control Administrator Name | Role | Phone | + +------+ + | Sulaiman Carrera MD | PCP | | + +------+ + Encounter Details +--------+ + + + + | Date | Type | Department | Care Team | Description | +--------+ + + + + | 06/30/ | Telephone | Pain Center at [facility] | Lukasz Ogden, | | | 2013 | | [address] | PhD [address] | | | | | Mailcode: CH15P | [place], [place] | | | | | [facility] | [address] | | | | | and Healing, | [phone] | | | | | Building | | | | | | Floor [place], [place] | | | | | | [address] | | | | | | [phone] | | | +--------+ + + + [...]
--- OUTSIDE RECORDS SUMMARY | ~2019-12-13 | XMS | Encounter Summary ---
Demographics + + + | Address | [address] | | | [place] [address] | + + + | Home Phone [...] Providers + +------+ + | Care Machine Packer Name | Role | Phone | [...] as of this encounter Discharge Summaries Interface, Trouble Shooting Mechanic In - 01/12/2005 10:09 AM PDT [id number] GEOVANNI Barnes Admission Date: 12/06/2004 Discharge Date: [...] her incision looked clear, dry, and intact. Jackson were in place. She had some moderate [...] diet. Followup appointment will be with Dr. hCris Padgett on , December 19, 2004. At that point, the JPs will likely be removed as well as the efren. Sree Carrillo M.D. Chris Padgett M.D. / [id number] / [id number] / [id number] / [id number] Electronically signed by Chris Padgett 12-31-2004 03:03:21 PM documented i n this encounter Plan of Treatment Not on filedocumented as of this encounter Visit Diagnoses Not on filedocumented in this encounter"
--- OUTSIDE RECORDS SUMMARY | ~2019-12-13 | XMS | Encounter Summary ---
Demographics + + + | Address | [address] | | | [place] [address] | + + + | Home Phone [...] Team Providers + +------+ + | Care Fingerer Name | Role | Phone | + [...] + + | 08/28/ | Office | [facility] Comprehensive | Delfina Lambert, | Neck Pain; Radicular | | 2008 | Visit | Pain Center at | ANP | Pain in Left Arm; | | | | [facility] | | Fibromyalgia; | | | | [address] | | Chronic Bilateral | | | | Mailcode: CH15P | | Shoulder Pain; | | | | [facility] | | Coccydynia; LBP (Low | | | | and Healing, | | Back Pain); | | | | Building | | Adjustment Disorder | | | | Floor [place], [place] | | with Anxiety; Major | | | | [address] | | Depressive Disorder, | | | | [phone] | | Recurrent Episode, | | | [...] Belinda Meehan is a 48 y.o. female [facility] Return Visit Chief [...] has be completed, which I reviewed. 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 documented in this [facility] Plan of Treatment Not on filedocumented [...]
--- OUTSIDE RECORDS SUMMARY | ~2019-12-13 | XMS | Encounter Summary ---
[...] Providers + +------+ + | Care Property Inspector Name | Role | Phone | [...] | | | | | Procedures | [address] | | | | | | CONSULT TO | Mychal Kovacs | | | | | | NEUROLOGY | [place], [place] | | | | | | | [address] | | +--------+--------+ + + + + Reason for Visit + + + | Reason | Comments | + + + | Back pain | | + + + Encounter Details +--------+---------+ + + + | Date | Type | Department | Care Team | Description | +--------+---------+ + + + | 10/03/ | Office | [facility] Comprehensive | Miranda Lambert, | [...] syndrome X | | | | Floor [place], [place] | | 250.80; Major | | | | [address] | | depressive disorder, | | | | [phone] | | recurrent episode, | | | [...] Schedule an appointment with Dr. Cesar SHEEHAN [facility] Neurology - If you continue [...] Belinda Meehan is a 49 y.o. female [facility] [...] drawing has be completed, which I reviewed. [facility] Brief Pain Inventory: (ten= worst possible [...] it no help 4. Dr. Ricky SHEEHAN [facility] did spine surgery last seen [...] 08/2007 right knee Hx lumbar fusion 05/2008 [id number] with bone spur removals Hx appendectomy Hx cholecystectomy Hx section Hx hysterectomy Gastric bypass Mayra Padgett wt 278 01/18 Paniculectomy Family History Problem Relation Cancer Mother Heart Father Additional Family History Father Migraine Additional Family History Mother Migraine Taniya Guerrero MD [facility] Neurology 2007 evaluation of migraines: [...] the names of 3 headache specialists in [place]- Dr. Koby García, Dr. Dakota Sweet and [...] a neurologist Dr. Taniya Guerrero here at [facility] at that time headaches were [...] to schedule a follow up appointment with [facility] neurologists Dr. Guerrero, for falls [...] to taper off gabapentin 2. Order for [facility] neurology Dr. Taniya Guerrero if [...] [facility] Mail code CH 4P [facility] [address] [place] [address] Ailyn Foster 1:03 PM PDTCMA History: [...]
--- OUTSIDE RECORDS SUMMARY | ~2019-12-13 | XMS | Encounter Summary ---
Demographics + + + | Address | [address] | | | [place] [address] | + + + | Home Phone [...] Providers + +------+ + | Care Dialysis Technician Name | Role | Phone | [...] | | | | | | [place], | | | | | | | [place] | | | | | | | [address] | | | | | | | Phone: | | | | | | | [phone] | | | | | | | Fax: | | | | | | | [phone] | +--------+--------+ + + + + Encounter Details +--------+---------+ + + + | Date | Type | Department | Care Team | Description | +--------+---------+ + + + | 07/10/ | Office | [facility] | Elieezr Ruano, | Abdominal Pain, | | 2008 | Visit | [place] [address] | [address] | dumping syndrome Hx | | | | Ave Mailcode: CH4S | [address] | of gastric bypass | | | | [facility] | [place], [place] | (Primary Dx) | | | | and Healing, | [address] | | | | | Building | [phone] | | | | | Floor [place], [place] | | | | | | [address] | | | | | | [phone] | | | +--------+---------+ + + + [...] and plan of care. ELIEZER RUANO MD [address] Mailcode: [place] [address] Yuriy Mayo MD - 06/16 [...] Tramadol Morphine IM ( only in [facility] [...] 300 mg) by oral route once daily dyonzrjtsr-glvlieprsksqe-eoqjvutf (FIORICET) 50-325-40 mg Oral Tablet take 2 [...] 278 01/18 Paniculectomy Hx lumbar fusion 05/2008 L1-J1zynrpv with bone spur removals Review of Systems: [...]
--- OUTSIDE RECORDS SUMMARY | ~2019-12-13 | XMS | Encounter Summary ---
Demographics + + + | Address | [address] | | | [place] [address] | + + + | Home Phone [...] Team Providers + +------+ + | Care Orchard Manager Name | Role | Phone | [...] | | | Mailcode: L223A | [place], [place] | | | | | [facility] | [address] | | | | | [address] [place], [place] | [phone] | | | | | [address] | | | | | | [phone] | | | +--------+ + + + [...]
--- OUTSIDE RECORDS SUMMARY | ~2019-12-13 | XMS | Encounter Summary ---
Demographics + + + | Address | [address] | | | [place] [address] | + + + | Home Phone [...] Providers + +------+ + | Care Territory Service Representative Name | Role | Phone [...] [address] | | | | | [facility] | [place], [place] | | | | | and Healing, | [address] | | | | | [facility], [facility] | [phone] | | | | | Floor [place], [place] | | | | | | [address] | | | | | | [phone] | | | +--------+ + + + [...]
--- OUTSIDE RECORDS SUMMARY | ~2019-12-13 | XMS | Encounter Summary ---
Demographics + + + | Address | [address] | | | [place] [address] | + + + | Home Phone [...] Providers + +------+ + | Care Supervisor Prepress Name | Role | Phone | + [...] | Pain | Diagnoses | Miracle, | Coles, | | | | Management | LBP (low | NIHARIKA Jean | Lukasz Rhodes, PhD | | | | | back pain) | [address] | [address] | | | | | DJD | [address] | Ave | | | | | (degenerativ | [place], [place] | [place], [place] | | | | | e joint | [address] | [address] | | | | | disease) of | | Phone: | | | | | knee Knee | | [phone] | | | | | pain Major | | Fax: | | | | | depressive | | [phone] | | | | | disorder, | [...] | | | | Mailcode: CH15P | [place], [place] | Episode, Mild (HCC); | | | | [place] for [facility] | [address] | LBP (Low Back | | | | and Healing, | [phone] | Pain); Migraine | | | | | | Headache | | | | Floor [place], [place] | | | | | | [address] | | | | | | [phone] | | | +--------+---------+ + + + [...] scheduled to come here after surgery. Diagnosis: Eastham I: 1. (296.31) Major depressive disorder, recurrent, mild. 2. (309.24) Adjustment disorder with anxiety. 3. 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 Eastham II: Deferred Eastham III: abdominal pain, migraine headache, low back pain. Eastham IV: low finances Eastham V: GAF 55-60 Plan: return with next medical follow-up appointment. Check mood, pain, surgical recovery , relaxation, activity, distraction, eating. Ask about headaches, fainting, Thanksgiving. Continue cognitive/behavioral therapy. Total time spent with patient was approximately 45 minutes. LUKASZ CHARLES PHD [facility] [address] [facility], [address] [place] [address] documented in this encount er Plan of Treatment + + +--------+ + + | Name | Type | Priori | Associated Diagnoses | Order Schedule | | | | ty | | | + + +--------+ + + | MT PSYCHOTHERPY, | Procedures | Routin | Major Depressive | Ordered: 04/28/2008 | | OFFICE (21-69) | | e | Disorder, Recurrent | [...]
--- OUTSIDE RECORDS SUMMARY | ~2019-12-13 | XMS | Encounter Summary ---
Demographics + + + | Address | [address] | | | [place] [address] | + + + | Home Phone [...] Team Providers + +------+ + | Care Shuttler Car Name | Role | Phone | + [...] | | | | Clinical Nutrition | [place], [place] | | | | | [address] | [address] | | | | | Loop Mailcode: OPC5 | [phone] | | | | | Outpatient Clinic | | | | | | [facility] | | | | | | [place] [address] | | | | | | [phone] | | | +--------+ + + + [...] [facility] | [address] | [place], [place] | | | UNIV P[facility] - INTFC | | [address] | | + + + + + [...] | [facility] | [address] | [place] [address] | | | LABORATORY | | | [...] DEPARTMENT OF | [address] | [place] [address] | | | PATHOLOGY | [address] | | | + + + + + | [facility] DEPARTMENT OF | [address] | [place] [address] | | | PATHOLOGY | [address] [...] - 51 U/L | [facility] | | | (LAB) | | | [...] | [facility] | [address] [facility] | [place] [address] | | | PATHOLOGY | [address] | | | + + + + + | [facility] | [facility] | [place] [address] | | | PATHOLOGY | [address] [...] DEPARTMENT OF | [address] | [place] [address] | | | PATHOLOGY | [address] | | | + + + + + | [facility] DEPARTMENT | [address] | [place] [address] | | | PATHOLOGY | [address] [...] | [facility] | [address] | [place] [address] | | | PATHOLOGY | [address] | | | + + + + + | [facility] | [facility] [address] | [place] [address] | | | PATHOLOGY | [address] | | | + + + + + documented in this encounter Visit Diagnoses Not on filedocumented in this encounter"
--- OUTSIDE RECORDS SUMMARY | ~2019-12-13 | XMS | Encounter Summary ---
Demographics + + + | Address | [address] | | | [place] [address] | + + + | Home Phone [...] | | | | | | | [place] [facility] | | | | | | | Health and | | | | | | | Healing, | | | | | | | Building 2 | | | | | | | [place], [place] | | | | | | | [address] | | | | | | | Phone: | | | | | | | [phone] | | | | | | | Fax: | | | | | | | [phone] | +--------+--------+ + + + + Encounter Details +--------+---------+ + + + | Date | Type | Department | Care Team | Description | +--------+---------+ + + + | 01/10/ | Office | Digestive Health | Chris Padgett, | Status post | | 2009 | Visit | Center [address] | [address] [facility] | bariatric surgery | | | | Ave Mailcode: CH4S | [address] | (Primary Dx) | | | | [facility] | [place], [place] | | | | | and [place], | [address] | | | | | [facility] | [phone] | | | | | Floor [place], [place] | | | | | | [address] | | | | | | [phone] | | | +--------+---------+ + + + [...] and I asked her to see a store associate where she lives. Will obtain CBC and [...]
--- OUTSIDE RECORDS SUMMARY | ~2019-12-13 | XMS | Encounter Summary ---
Demographics + + + | Address | [address] | | | [place] [address] | + + + | Home Phone [...] Team Providers + +------+ + | Care Taker Off Hemp Fiber Name | Role | Phone | + [...] + + | 04/02/ | Telephone | [facility] | Alanis, | Other | | 2017 | | MEDICINE [address] | MD [place] | | | | | [place], | [address] [facility] | | | | | [place] [address] | [place] [address] | | | | | [phone] | [phone] | | | | | | | [...] | | | | | [place] [address] | | | | | | [phone] | | | | | | | | +--------+---------+ + + + | 12/20/ | Office | Otolaryngology | Ulysses Genao MD | | | 2019 | Visit | | [address] | | | | | | [address] [place] | | | | | | [place] [address] | | | | | | [phone] | | | | | | | | +--------+---------+ + + + | 02/15/ | Office | Internal Medicine | Alanis, | | | 2020 | Visit | | MD [place] | | | | | | [address] | | | | | | [place] [address] | | | | | | [phone] | | | | | | | | +--------+---------+ + + + documented as of this encounter Visit Diagnoses Not on filedocumented in this encounter"
--- OUTSIDE RECORDS SUMMARY | ~2019-12-13 | XMS | Encounter Summary ---
Demographics + + + | Address | [address] | | | [place] [address] | + + + | Home Phone [...] Providers + +------+ + | Care Clinical Leader Name | Role | Phone | [...] | | | | | Encounter | [place], [place] | [place] | | | | | for | [address] | [address] | | | | | long-term | | Phone: | | | | | (current) | | [phone] | | | | | use of other | | Fax: | | | | | medications | | [phone] | | | | | LBP (low [...] 08/09/ | Office | [facility] | Lukasz Charles, | Major depressive | | 2013 | Visit | [address] | PhD [address] | disorder, recurrent | | | | Mailcode: CH15P | [place], [place] | episode, moderate | | | | [place] for [facility] | [address] | ([facility]) (Primary Dx); | | | | and Healing, | [phone] | LBP (low back pain); | | | | | | Fibromyalgia; | | | | Floor [place], [place] | | Adjustment disorder | | | | [address] | | with anxiety | | | | [phone] | | | +--------+---------+ + + + [...] gives her a lot of motivation. Diagnosis: Biola I: 1. (296.32) Major depressive disorder, recurrent, moderate. 2. (309.24) Adjustment disorder with anxiety. Biola II: Deferred Biola III: abdominal pain, migraine headache, low back pain, fibromyalgia. Biola IV: low finances Biola V: GAF 55-60 Plan: return in 1 month. Check mood, pain, activity, stress management. Ask about any ch anges at home, taking care of her own self, sleeping. Continue cognitive/behavioral therapy . Total time spent with patient was approximately 45 minutes. LUKASZ CHARLES PHD [facility] [address] [place] [address] And [facility], [address] [place] [address] documented in this en counter Plan of [...]
--- OUTSIDE RECORDS SUMMARY | ~2019-12-13 | XMS | Encounter Summary ---
Demographics + + + | Address | [address] | | | [place] [address] | + + + | Home Phone [...] Providers + +------+ + | Care Fuel Handler Name | Role | Phone | [...] Floor | | | | | | [place], [place] | | | | | | [address] | | | | | | [phone] | | | +--------+ + + + [...] No: | | | | | | [id number] Name: | | | | | | BELINDA MEEHAN | | | | | | Birthday: 1960 | | | | | | Sex: F | | | | | | Alias:Patient Location: | | | | | | [id number]: Outpatient | | | | | | ActiveOrdering | | | | | | Physician: JOSÉ MIGUEL | | | | | | MARYSOL MORENO SCAPULA | | | | | | COMPLETE completed on | | | | | | 01/01/2009 11:55 | | | | | | AMAccession # | | | | | | [id number]:LEFT | | | | | | SCAPULA [...]
--- OUTSIDE RECORDS SUMMARY | ~2019-12-13 | XMS | Encounter Summary ---
Demographics + + + | Address | [address] | | | [place] [address] | + + + | Home Phone [...] Providers + +------+ + | Care Aircraft Refueler Name | Role | Phone | [...] + + | 02/02/ | Telephone | [facility] | Alanis, | Pain | | 2018 | | MEDICINE [address] | MD [place] | | | | | MALIK ZHAO, | [address] [facility] | | | | | [place] [address] | [place] [address] | | | | | [phone] | [phone] | | | | | | | [...] | | | | | [place] [address] | | | | | | [phone] | | | | | | | | +--------+---------+ + + + | 12/20/ | Office | Otolaryngology | Ulysses Genao MD | | | 2019 | Visit | | [address] | | | | | | [address] | | | | | | [place] [address] | | | | | | [phone] | | | | | | | | +--------+---------+ + + + | 02/15/ | Office | Internal Medicine | Alanis, | | | 2019 | Visit | | MD [place] | | | | | | [address] | | | | | | [place] [address] | | | | | | [phone] | | | | | | | | +--------+---------+ + + + documented as of this encounter Visit Diagnoses Not on filedocumented in this encounter"
--- OUTSIDE RECORDS SUMMARY | ~2019-12-13 | XMS | Encounter Summary ---
Demographics + + + | Address | [address] | | | [place] [address] | + + + | Home Phone [...] Providers + +------+ + | Care Dry End Tester Name | Role | Phone | [...] [address] K[address] | | | | | [facility] | [place], [place] | | | | | [address] | [address] | | | | | [address] | [phone] | | | | | [facility] | | | | | | Physician's | | | | | | [facility]ilion [place], | | | | | | [place] [address] | | | | | | [phone] | | | +--------+--------+ + + + [...]
--- OUTSIDE RECORDS SUMMARY | ~2019-12-13 | XMS | Encounter Summary ---
Demographics + + + | Address | [address] | | | [place] [address] | + + + | Home Phone [...] + +------+ + | Care Family Practice Medical Doctor Name | Role | Phone | [...] + + | 05/05/ | Telephone | [facility] | Alanis, | Incontinence | | 2018 | | MEDICINE [address] | MD [place] | Supplies | | | | MALIK FENTON, | [address] [facility] | | | | | [place] [address] | [place] [address] | | | | | [phone] | [phone] | | | | | | | [...] with the nurse. [facility] incontinence supplies [...] | | | | | [place] [address] | | | | | | [phone] | | | | | | | | +--------+---------+ + + + | 12/20/ | Office | Otolaryngology | Ulysses Genao MD | | | 2019 | Visit | | [address] | | | | | | [address] | | | | | | [place] [address] | | | | | | [phone] | | | | | | | | +--------+---------+ + + + | 02/15/ | Office | Internal Medicine | Alanis, | | | 2019 | Visit | | MD [place] | | | | | | [address] [place] | | | | | | [place] [address] | | | | | | [phone] | | | | | | | [...]
--- OUTSIDE RECORDS SUMMARY | ~2019-12-13 | XMS | Encounter Summary ---
Demographics + + + | Address | [address] | | | [place] [address] | + + + | Home Phone [...] + +------+ + | Care Utility Worker Forge Name | Role | Phone | + +------+ + | [place] Thapa | PCP | | | MD | | | + +------+ + Encounter Details +--------+---------+ + + + | Date | Type | Department | Care Team | Description | +--------+---------+ + + + | 12/18/ | Surgery | [facility] | Luther Brito MD | EGD | | 2018 | | MED CTR MP INTRA OP | [address] | | | | | [address] | [place], [place] | | | | | [place], [place] | [address] | | | | | [address] | [phone] | | | | | [phone] | | | +--------+---------+ + + + [...] You can't be awakened Date Last Reviewed: 04/01/201619996136-8920 [employer]. [address] [place] [address], [place] [id number]. All righ ts reserved. This information is [...] | | 0 | | | | (KENYONN Z) 0.004% | | | | | [...] Luther Brito MD at 12/18/2017 10:55 AM Luthre Tatum MD - 12/18/2017 1 0:54 AM [...] (See Comments) Confused and questionable for seizures Atxscluogc-Tkyi-Jgpqjlkf Hives and Rash Cephalexin Hives Ciprofloxacin Hives [...] Electronically Signed by: Luther Brito MD 12/18/2017 [facility] Portions of this chart may have been created with [employer] voice recognition software. Occasi onal wrong-word or [...] Endoscopy Patient: Belinda Rodriguez : 1960 Acct: [id number] Exam Date: Monday, December 18, 2017 Doctor: [...] If unable to reach your physician, call [facility] Emergency Department at Ext. 2500 Your doctor [...] Exams Patient: Belinda Rodriguez : 1960 Acct: [id number] Exam Date: Monday, December 18, 2017 Doctor: [...] If unable to reach your physician, call [facility] Emergency Department at [address] Your doctor [...] | | | | | [place] [address] | | | | | | [phone] | | | | | | | | +--------+---------+ + + + | 12/20/ | Office | Otolaryngology | Ulysses Genao MD | | | 2019 | Visit | | [address] | | | | | | [address] | | | | | | [place] [address] | | | | | | [phone] | | | | | | | | +--------+---------+ + + + | 02/15/ | Office | Internal Medicine | Alanis, | | | 2019 | Visit | | MD [place] | | | | | | [address] [place] | | | | | | [place] [address] | | | | | | [phone] | | | | | | | [...] 12/18/2017 | [facility] | | 10:49 AMMRN: [id number] #: [id number] of : | | | 9Admit Type: AmbulatoryAge: 57Room: [facility] 01Gender: FemaleNote | | | Status: FinalizedAttending MD: Luther Brito [facility]: [facility] | | Upper GI endoscopyIndications: [...] the anesthesiologist and the | | | auto body repair technician in the pre-procedure area in [...] | appearing mucosa. This was traversed. The ygcen-wk-tkpaqju limb | | | was characterized by healthy appearing mucosa. The | | | jejunojejunal anastomosis was characterized by healthy | | | appearing mucosa. The zpancdmh-va-xwddhbm limb was not examined | | | [...] Out: | | | 11:08:[address] [facility], [address] | | | [place] [address] | | | - Return to GI [...] Out: 11:08:34 AM | | | [facility], [address] , [place], [place] | | | [address] | | + + -+ + +---------+ [...] 12/18/2017 | [facility] | | 10:43 AMMRN: [id number] #: [id number] of : | | | 9Admit Type: AmbulatoryAge: 57Room: [facility] 01Gender: FemaleNote | | | Status: FinalizedAttending MD: Luther Brito , [facility] | | | ColonoscopyIndications: Generalized abdominal [...] the anesthesiologist and the | | | auto body repair technician in the pre-procedure area in [...] Scope In: 11:12:28 AMScope Out: 11:56:57 AM [place] | | | [facility], [address] [place] [address] | | | [phone] | | | - Await pathology results. [...] |Scope Out: 11:56:57 AM | | | [place] [facility], [address] [place], [place] | | | [address] | | + + -+ + +---------+ [...] for specific diagnostic abnormality. | | | JVR:[facility]:C2NR GROSS DESCRIPTION: Received in five parts. [...] | | slide preparation were performed by [facility], [address] [place] [address] | | | [facility], [address], [place] [address] (Liner Installer: Stephen Jacobson, | | | Joanna CLIA#: [id number]). Professional interpretation was performed | | | by [facility], [facility], [facility] | | | [address], [place] [address] (Liner Installer: Stephen | | | Joanna Jacobson; CLIA#: [id number]). Diagnostician: Stephen Khan | | | Kavon [...]
--- OUTSIDE RECORDS SUMMARY | ~2019-12-13 | XMS | Encounter Summary ---
Demographics + + + | Address | [address] | | | [place] [address] | + + + | Home Phone [...] Providers + +------+ + | Care Banking Consultant Name | Role | Phone | [...] [address] | | | | | [facility] [place] [facility] | [place], [place] | | | | | [address] | [address] | | | | | [address] | [phone] | | | | | [facility] | | | | | | Physician's | | | | | | Pavilion [place], | | | | | | [place] [address] | | | | | | [phone] | | | +--------+--------+ + + + [...]
--- OUTSIDE RECORDS SUMMARY | ~2019-12-13 | XMS | Encounter Summary ---
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 Diagnosis: Magnolia I: 1. (296.32) Major depressive disorder, recurrent, moderate. 2. (309.24) Adjustment disorder with anxiety. 3. 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 Magnolia II: Deferred Magnolia III: abdominal pain, migraine headache, low back pain. Magnolia IV: low finances Magnolia V: GAF 50 Plan: Return in 2 weeks. Check preparation for niece's visit, [employer], pacing, relaxation, ac tivity, distraction. Check managing Pain... book. Continue cognitive/behavioral therapy. Total time spent with patient was approximately 45 minutes. LUKASZ CHARLES PHD [facility] [address] [facility] [address] [place] [address] documented in this encount er Plan of [...]
--- OUTSIDE RECORDS SUMMARY | ~2019-12-13 | XMS | Encounter Summary ---
Demographics + + + | Address | [address] | | | [place] [address] | + + + | Home Phone [...] Providers + +------+ + | Care Boxing Machine Operator Name | Role | Phone [...] Refill Request | | 2007 | | [place] [address] | [address] [facility] | | | | | [place] Mailcode: CH4S | [facility] | | | | | [facility] | [place], [place] | | | | | and [place], | [address] | | | | | [facility] | [phone] | | | | | Floor [place], [place] | | | | | | [address] | | | | | | [phone] | | | +--------+--------+ + + + [...]
--- OUTSIDE RECORDS SUMMARY | ~2019-12-13 | XMS | Encounter Summary ---
Demographics + + + | Address | [address] | | | [place] [address] | + + + | Home Phone [...] + +------+ + | Care Project Management Instructor Name | Role | Phone [...] + + | 04/15/ | Telephone | [facility] INTERNAL | Alanis, | Other (Pain clinic) | | 2018 | | MEDICINE [address] | MD Petrona | | | | | [place], | [address] [facility] | | | | | [place] [address] | [place] [address] | | | | | [phone] | [phone] | | | | | | | [...] the pain clinic. Please call her at [phone]. documented in this encounter Plan of Treatment [...] | | | | | [place] [address] | | | | | | [phone] | | | | | | | | +--------+---------+ + + + | 12/20/ | Office | Otolaryngology | Ulysses Genao MD | | | 2019 | Visit | | [address] | | | | | | [address] | | | | | | [place] [address] | | | | | | [phone] | | | | | | | | +--------+---------+ + + + | 02/15/ | Office | Internal Medicine | Alanis, | | | 2019 | Visit | | MD Petrona | | | | | | [address] [place] | | | | | | [place] [address] | | | | | | [phone] | | | | | | | | +--------+---------+ + + + documented as of this encounter Visit Diagnoses Not on filedocumented in this encounter"
--- OUTSIDE RECORDS SUMMARY | ~2019-12-13 | XMS | Encounter Summary ---
Demographics + + + | Address | [address] | | | [place] [address] | + + + | Home Phone [...] + +------+ + | Care Retail Shift Supervisor Name | Role | Phone [...] Pavilion | | | | | | [place], [place] | | | | | | [address] | | | | | | [phone] | | | +--------+ + + + [...]
--- OUTSIDE RECORDS SUMMARY | ~2019-12-13 | XMS | Encounter Summary ---
Demographics + + + | Address | [address] | | | [place] [address] | + + + | Home Phone [...] Team Providers + +------+ + | Care Collection Officer Name | Role | Phone | [...] as of this encounter Progress Notes Interface, Diesel Powerplant Mechanic In - 12/09/2005 2:08 AM PDT [id number] GEOVANNI Barnes [id number] Clinic Date: 11/26/2005 Clinic: General Surgery Clinic [...] with extensive workup. Prescription picked up at [facility] on November 25, 2005, for 50 oxycodone 5 mg. Melisa Thorne / SHARIF [id number] / [id number] / [id number] / [id number] Electronically signed by Kenisha Melton 12-05-2005 08:28:34 PM documented i n this encounter Plan of Treatment Not on filedocumented as of this encounter Visit Diagnoses Not on filedocumented in this encounter"
--- OUTSIDE RECORDS SUMMARY | ~2019-12-13 | XMS | Encounter Summary ---
Demographics + + + | Address | [address] | | | [place] [address] | + + + | Home Phone [...] Providers + +------+ + | Care Oil Producer Name | Role | Phone | [...] Pain; Status Post | | | | [place], [place] | | Bariatric Surgery | | | | [address] | | | | | | [phone] | | | +--------+------+ + + + [...] Performed At | + + + | [id number] Estimated GFR > 60 mL/min/1.73 sq m if non- | [facility] | | Palestinian [id number] Estimated GFR > 60 mL/min/1.73 sq m if | DEPARTMENT OF | | Palestinian GFR is estimated using the MDRD equation [...] [facility] | [address] | [place] [address] | | | PATHOLOGY | [address] | | | + + + + + | [facility] DEPARTMENT | [address] | [place] [address] | | | PATHOLOGY | [address] | | | + + + + + INR (08/28/2008 3:31 PM PDT) + + + + + + | Component | Value | Ref Range | Performed | Pathologist | | | | | At | Signature | + + + + + + | INR | 0.96Comment: | 0.90 - 1.20 INR | [facility] | | | | INR Therapeutic ranges [...] [facility] | [address] [facility] | [place] [address] | | | PATHOLOGY | [address] | | | + + + + + | [facility] DEPARTMENT OF | [address] | [place] [address] | | | PATHOLOGY | [address] | | | + + + + + documented in this encounter Visit Diagnoses + + | Diagnosis | + + | Chronic abdominal pain Abdominal pain, unspecified site | + + | Status post bariatric surgery Bariatric surgery status | + + documented in this encounter"
--- OUTSIDE RECORDS SUMMARY | ~2019-12-13 | XMS | Encounter Summary ---
[...] + +------+ + | Care Corporate Travel Expert Name | Role | Phone | [...] | | | [facility] | [place], [place] | | | | | [address] | [address] | | | | | [address] | [phone] | | | | | Physician's | | | | | | Pavilion, 1st floor | | | | | | [place], [place] | | | | | | [address] | | | | | | [phone] | | | +--------+--------+ + + + [...]
--- OUTSIDE RECORDS SUMMARY | ~2019-12-13 | XMS | Encounter Summary ---
Demographics + + + | Address | [address] | | | [place] [address] | + + + | Home Phone [...] Providers + +------+ + | Care Social Service Assistant Name | Role | Phone [...] | 2006 | Visit | [facility] | MD Darrion,PhD [address] | Deconditioning; | | | | for Health and | [address] | Physical | | | | Healing [address] | [place], [place] | Deconditioning | | | | Ave Mailcode: | [address] | | | | | [facility] | [phone] | | | | | Health and Healing, | | | | | | [facility] | | | | | | Floor [place], [place] | | | | | | [address] | | | | | | [phone] | | | +--------+---------+ + + + [...] and neurology assessment. Angel Morales M.D., Ph.D. Manager Special Events, Surgical [facility] Department of Orthopedics [email or web address] documented in this encou nter [...]
--- OUTSIDE RECORDS SUMMARY | ~2019-12-13 | XMS | Encounter Summary ---
Demographics + + + | Address | [address] | | | [place] [address] | + + + | Home Phone [...] Team Providers + +------+ + | Care Study Coordinator Name | Role | Phone | [...] | | | | | (degenerativ | [place], [place] | [place] | | | | | e joint | [address] | [address] | | | | | disease) of | | Phone: | | | | | knee Knee | | [phone] | | | | | pain Major | | Fax: | | | | | depressive | | [phone] | | | | | disorder, | [...] + + + + | 04/20/ | Import/Export Agent | [facility] Comprehensive | Miranda Lambert, | LBP (Low Back Pain); | | 2006 | | Pain Center at | ANP | DJD (Degenerative | | | | [facility] | | Joint Disease) of | | | | [address] | | Knee; Bilateral Knee | | | | Mailcode: CH15P | | Pain; Major | | | | Center for [facility] | | Depressive Disorder, | | | | and Healing, | | Recurrent Episode, | | | | Building | | Moderate ([facility]); | | | | Floor [place], [place] | | Adjustment Disorder | | | | [address] | | with Anxiety; | | | | [phone] | | Spondylosis with | | | [...]
--- OUTSIDE RECORDS SUMMARY | ~2019-12-13 | XMS | Encounter Summary ---
Demographics + + + | Address | [address] | | | [place] [address] | + + + | Home Phone [...] +------+ + | Care Geographic Information System Surveyor Name | Role | Phone | [...] as of this encounter Progress Notes Interface, Radiological Defense Officer In - 01/13/2005 9:03 AM PDT [id number] GEOVANNI Barnes Clinic Date: 01/02/2005 Clinic: Endocrinology [...] months. Beto Meeks M.D. PD / HS [id number] / [id number] / [id number] / [id number] cc: Chris Padgett M.D. documented i n this encounter Plan of Treatment Not on filedocumented as of this encounter Visit Diagnoses Not on filedocumented in this encounter"
--- OUTSIDE RECORDS SUMMARY | ~2019-12-13 | XMS | Encounter Summary ---
[...] Providers + +------+ + | Care Engraver Block Name | Role | Phone | + [...] | [address] | [facility] | Pre-Operative | | | | [address] | Gastro [facility] | Examination (Primary | | | | Mailcode: PV430 | [address] | Dx) | | | | Physician's Pavilion | [address] [place], | | | | | [place], [place] | [place] [address] | | | | | [address] | [phone] | | | | | [phone] | | | +--------+---------+ + + + [...] surgeries scheduled to take place on the wykoff at the [facility]: Surgeries scheduled in the [facility] ([address] [place] [address]): registration is located on the 4th floor of [facility] (Day Surgery). Surgeries scheduled in the [facility]: registration is located on the 9th floor. Surgeries scheduled in [facility]: registration is located on the 6th floor. Surgeries scheduled in the [facility]: registration is located i n the [facility] on the first floor. For surgeries scheduled to take place at the [facility]: registration is l ocated on the 4th [...] you use specialized medical equipment at h [facility], please check with your provider before [...] surgeries scheduled to take place on the wykoff at the [facility]: Surgeries scheduled in the [facility] ( North): registration is located on the 4th floor of [facility] (Day Surgery). Surgeries scheduled in the [facility]: registration is located on the 9th floor. Surgeries scheduled in [facility]: registration is located on the 6th floor. Surgeries scheduled in the [facility]: registration is located i n the [facility] on the first floor. For surgeries scheduled to take place at the [facility]: registration is l [...] you use specialized medical equipment at h [facility], please check with your provider before [...] 08/2007 right knee Hx lumbar fusion 05/2008 L5-X6dlswwe with bone spur removals Hx appendectomy Hx [...] (Ciprofloxacin) Tramadol Morphine IM ( only in [facility]) made gut pain worse 08/27/06: Trial of oral MSIR caused leg swelling Clarithromycin Hives Mainly in the legs Qigrybd-ddsunmjgjp-lzj-caff Balance problems Amitriptyline Grand mal seizures Fioricet W/codeine (Lks-akcobaoeqr-eqlavlignl-caf) FAMILY HISTORY: Family History Problem Relation Cancer [...] | | | DEPARTMENT | | | [place] | | | OF | | | [...] + + | [facility] | [address] | [place] [address] | | | PATHOLOGY | [address] | | | + + + + + | [facility] DEPARTMENT OF | [address] | [place] [address] | | | PATHOLOGY | [address] [...] OF | [address] | [place] [address] | | | PATHOLOGY | [address] | | | + + + + + | [facility] | [address] | [place] [address] | | | PATHOLOGY | [address] | | | + + + + + documented in this encounter Visit Diagnoses + + | Diagnosis | + + | Other specified pre-operative examination - Primary | + + documented in this encounter
--- OUTSIDE RECORDS SUMMARY | ~2019-12-13 | XMS | Encounter Summary ---
Demographics + + + | Address | [address] | | | [place] [address] | + + + | Home Phone [...] + +------+ + | Care Solid Waste Disposal Manager Name | Role | Phone | [...] as of this encounter Progress Notes Interface, Data Input Clerk In - 08/19/2005 2:05 AM PST [id number] GEOVANNI Barnes Clinic Date: 07/24/2005 Clinic: Hematology [...] full and complete summary. Lukasz Sellers M.D. web site admin NANCY / SHARIF [id number] / [id number] / [id number] / [id number] cc: Pedrito Gutierrez M.D. [address] [place] [address] Electronically signed by Lukasz Sellers 08-18-2005 01:28:24 PM documented i n this encounter Plan of Treatment Not on filedocumented as of this encounter Visit Diagnoses Not on filedocumented in this encounter"
--- OUTSIDE RECORDS SUMMARY | ~2019-12-13 | XMS | Encounter Summary ---
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 female [facility] Comprehensive Pain Center Return Visit Chief [...] two weeks. 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 Fentanyl patch 25mcg/hr Q72hr 3. [place] 10/325 NTE 4 per day 4 Continue [...] weeks or sooner if needed. DELFINA MOLINA [facility] Comprehensive Pain Center Mail code CH 4P [facility] and [facility] [address] [facility] [address] Tasha Can - 11/11/2006 9:29 AM PDTCMA [...]
--- OUTSIDE RECORDS SUMMARY | ~2019-12-13 | XMS | Encounter Summary ---
Demographics + + + | Address | [address] | | | [place] [address] | + + + | Home Phone [...] + +------+ + | Care Unclaimed Property Officer Name | Role | Phone | [...] | | Center at [facility] [address] | PROCESSING TECHNICIAN [address] | | | | | [address] | , [address] | | | | | Mailcode: Center | [place], [place] | | | | | Health and | [address] | | | | | Healing, Building [address] | [phone] | | | | | [place], [place] | | | | | | [address] | | | | | | [phone] | | | +--------+ + + + [...]
--- OUTSIDE RECORDS SUMMARY | ~2019-12-13 | XMS | Encounter Summary ---
Demographics + + + | Address | [address] | | | [place] [address] | + + + | Home Phone [...] Team Providers + +------+ + | Care Olericulturist Name | Role | Phone | + +------+ + PCP | Unavailable | + +------+ + Encounter Details +--------+ + + + + | Date | Type | Department | Care Team | Description | +--------+ + + + + | 07/04/ | Office | Endocrinology, | Beto Meeks MD | | | 2005 | Visit-ECX | Diabetes and | [address] | | | | | Clinical Nutrition | [place], [place] | | | | | [address] | [address] | | | | | Loop Mailcode: OPC5 | [phone] | | | | | Outpatient Clinic | | | | | | [facility] | | | | | | [place] [address] | | | | | | [phone] | | | +--------+ + + + [...]
--- OUTSIDE RECORDS SUMMARY | ~2019-12-13 | XMS | Encounter Summary ---
Demographics + + + | Address | [address] | | | [place] [address] | + + + | Home Phone [...] Providers + +------+ + | Care Cloth Bleaching Range Tender Name | Role | Phone | [...] as of this encounter Progress Notes Interface, Metalizer In - 01/12/2005 8:09 AM PDTClinic Date: [...] months. Chris Padgett M.D. ROSA / SHARIF [id number] / [id number] / [id number] / Tdocumented in this encounter Plan of Treatment Not on filedocumented as of this encounter Visit Diagnoses Not on filedocumented in this encounter"
--- OUTSIDE RECORDS SUMMARY | ~2019-12-13 | XMS | Encounter Summary ---
Demographics + + + | Address | [address] | | | [place] [address] | + + + | Home Phone [...] + +------+ + | Care Landfill Gas Collection System Operator Name | Role | Phone [...] [place] | | | | | | [address] | | | | | | [phone] | | | +--------+ + + + [...] | | | | | [place] [address] | | | | | | [phone] | | | | | | | | +--------+---------+ + + + | 12/20/ | Office | Otolaryngology | Ulysses Genao MD | | | 2019 | Visit | | [address] | | | | | | [address] | | | | | | [place] [address] | | | | | | [phone] | | | | | | | | +--------+---------+ + + + | 02/15/ | Office | Internal Medicine | Alanis, | | | 2019 | Visit | | MD [place] | | | | | | [address] [place] | | | | | | [place] [address] | | | | | | [phone] | | | | | | | | +--------+---------+ + + + documented as of this encounter Visit Diagnoses Not on filedocumented in this encounter"
--- OUTSIDE RECORDS SUMMARY | ~2019-12-13 | XMS | Encounter Summary ---
Demographics + + + | Address | [address] | | | [place] [address] | + + + | Home Phone [...] Providers + +------+ + | Care Automotive Refinish Technician Name | Role | Phone | [...] + + | 09/04/ | Telephone | [facility] INTERNAL | Alanis, | Appointment Question | 2019 | | [facility] [address] | MD [place] | | | | | [place], | [address] [place] | | | | | [place] [address] | [place] [address] | | | | | [phone] | [phone] | | | | | | | [...] | | | | | [place] [address] | | | | | | [phone] | | | | | | | | +--------+---------+ + + + | 12/20/ | Office | Otolaryngology | Ulysses Genao MD | | | 2019 | Visit | | [address] | | | | | | [address] | | | | | | [place] [address] | | | | | | [phone] | | | | | | | | +--------+---------+ + + + | 02/15/ | Office | Internal Medicine | Alanis, | | | 2019 | Visit | | MD [place] | | | | | | [address] [place] | | | | | | [place] [address] | | | | | | [phone] | | | | | | | | +--------+---------+ + + + documented as of this encounter Visit Diagnoses Not on filedocumented in this encounter"
--- OUTSIDE RECORDS SUMMARY | ~2019-12-13 | XMS | Encounter Summary ---
Demographics + + + | Address | [address] | | | [place] [address] | + + + | Home Phone [...] Team Providers + +------+ + | Care Squash Centre Manager Name | Role | Phone [...] | Transcriptions | + + | Interface, Police Worker In - 06/05/2005 5:20 AM PST Date: | | 11/22/2003Attending Surgeon: Chris Padgett M.D.Regulatory Submissions Specialist(s): | | Ramon Valentine M.D.Preoperative Diagnosis:Morbid obesity.Postoperative [...] our proximal transected portion down and did yefsp-jy-qbbq stapled jejunojejunostomy | | using a single [...] to this antecolic and antegastric andperformed a jcfc-np-xlvk gastrojejunostomy | | after placing a posteriorinterrupted [...] Valentine | | Syed Padgett M.D.MOOKIE / [id number] / [id number] / [id number] / [id number]: 11/22/2003T: | | 11/22/2003 | |cm to [...] transected portion down and did a | |jvka-nq-gsjr stapled jejunojejunostomy using a single firing blue [...] antecolic and antegastric and | |performed a urwe-mt-nkmf gastrojejunostomy after placing a posterior | |interrupted [...] | | | |MOOKIE / SHARIF | |[id number] / [id number] / [id number] / [id number] | | | | | + + documented in this encounter Visit Diagnoses Not on filedocumented in this encounter"
--- OUTSIDE RECORDS SUMMARY | ~2019-12-13 | XMS | Encounter Summary ---
Demographics + + + | Address | [address] | | | [place] [address] | + + + | Home Phone [...] Providers + +------+ + | Care Shell Machine Operator Name | Role | Phone [...] | 09/04/ | Refill | [facility] | Alanis, | Medication Refill | | 2018 | | MEDICINE [address] | MD [place] | | | | | [place], | [address] [facility] | | | | | [place] [address] | [place] [address] | | | | | [phone] | [phone] | | | | | | | [...] | | | | | [place] [address] | | | | | | [phone] | | | | | | | | +--------+---------+ + + + | 12/20/ | Office | Otolaryngology | Ulysses Genao MD | | | 2019 | Visit | | [address] | | | | | | [address] [place] | | | | | | [place] [address] | | | | | | [phone] | | | | | | | | +--------+---------+ + + + | 02/15/ | Office | Internal Medicine | Alanis, | | | 2019 | Visit | | MD [place] | | | | | | [address] [place] | | | | | | [place] [address] | | | | | | [phone] | | | | | | | | +--------+---------+ + + + documented as of this encounter Visit Diagnoses Not on filedocumented in this encounter"
--- OUTSIDE RECORDS SUMMARY | ~2019-12-13 | XMS | Encounter Summary ---
Demographics + + + | Address | [address] | | | [place] [address] | + + + | Home Phone [...] + +------+ + | Care Quality Systems Engineer Name | Role | Phone [...] | | | [facility] | [place], [place] | | | | | [address] | [address] | | | | | [address] | [phone] | | | | | Physician's | | | | | | Pavilion, 1st floor | | | | | | [place], [place] | | | | | | [address] | | | | | | [phone] | | | +--------+--------+ + + + [...]
--- OUTSIDE RECORDS SUMMARY | ~2019-12-13 | XMS | Encounter Summary ---
Demographics + + + | Address | [address] | | | [place] [address] | + + + | Home Phone [...] Providers + +------+ + | Care Cement Car Dumper Name | Role | Phone | + [...] [facility] | | | | | | [address] | | | | | | Mailcode: CH15P | | | | | | [place] for [facility] | | | | | | and Healing, | | | | | | Building | | | | | | Floor [place], [place] | | | | | | [address] | | | | | | [phone] | | | +--------+ + + + [...]
--- OUTSIDE RECORDS SUMMARY | ~2019-12-13 | XMS | Encounter Summary ---
Demographics + + + | Address | [address] | | | [place] [address] | + + + | Home Phone [...] Providers + +------+ + | Care Logistics Service Representative Name | Role | Phone [...]
--- OUTSIDE RECORDS SUMMARY | ~2019-12-13 | XMS | Encounter Summary ---
Demographics + + + | Address | [address] | | | [place] [address] | + + + | Home Phone [...] Team Providers + +------+ + | Care Photostatic Copy Maker Name | Role | Phone | [...] [address] | | | | | | [place], [place] | | | | | | [address] | | | | | | [phone] | | | +--------+ + + + [...]
--- OUTSIDE RECORDS SUMMARY | ~2019-12-13 | XMS | Encounter Summary ---
Demographics + + + | Address | [address] | | | [place] [address] | + + + | Home Phone [...] Providers + +------+ + | Care Edge Grinder Name | Role | Phone | [...] | Visit | [address] | REWRITER | syndrome [address] | | | | [address] | | (Primary Dx); | | | | Physician's | | Fibromyalgia | | | | Pavilion, 4th Floor | | | | | | [place], [place] | | | | | | [address] | | | | | | [phone] | | | +--------+---------+ + + + [...]
--- OUTSIDE RECORDS SUMMARY | ~2019-12-13 | XMS | Encounter Summary ---
Demographics + + + | Address | [address] | | | [place] [address] | + + + | Home Phone [...] Providers + +------+ + | Care Media Production Support Manager Name | Role | Phone [...] of this encounter Progress Notes Interface, Radiation Therapy Technician In - 03/29/2005 5:05 AM PDT [id number] GEOVANNI Barnes Clinic Date: 03/20/2005 Clinic: Rheumatology [...] sense of disability is 5/10. Her pillowcase sewer needs a note from me that she [...] for the diagnosis of fibromyalgia by the [employer]. She also has the [...] to treat restless legs. There is a instrument person in [place] who is using large doses to reduce [...] 4 months. Caitlin Rivera M.S., F.N.P. / [id number] / [id number] / [id number] / [id number] cc: Pedrito Gutierrez M.D. [address] [place] [address] Belinda Meehan [address] [facility] [place] [address] Electronically signed by Caitlin Rivera 03-28-2005 01:43:14 PM documented i n this encounter Plan of Treatment Not on filedocumented as of this encounter Visit Diagnoses Not on filedocumented in this encounter"
--- OUTSIDE RECORDS SUMMARY | ~2019-12-13 | XMS | Encounter Summary ---
Demographics + + + | Address | [address] | | | [place] [address] | + + + | Home Phone [...] Providers + +------+ + | Care Extrusion Process Operator Name | Role | Phone | [...] Floor | | | | | | [place], [place] | | | | | | [address] | | | | | | [phone] | | | +--------+ + + + [...] No: | | | | | | [id number] Name: | | | | | | BELINDA MEEHAN | | | | | | Birthday: 1960 | | | | | | Sex: F | | | | | | Alias:Patient Location: | | | | | | [id number]: Outpatient | | | | | | ActiveOrdering | | | | | | Physician: JOSÉ MIGUEL | | | | | | MARYSOL MORENO SCAPULA | | | | | | COMPLETE completed on | | | | | | 01/01/2009 11:55 | | | | | | AMAccession # | | | | | | [id number] | | | | | | SCAPULA [...]
--- OUTSIDE RECORDS SUMMARY | ~2019-12-13 | XMS | Encounter Summary ---
Demographics + + + | Address | [address] | | | [place] [address] | + + + | Home Phone [...] Providers + +------+ + | Care Drill Operator Automatic Name | Role | Phone [...] [id number] | | | | | | [place], [place] | | | | | | [address] | | | | | | [phone] | | | +--------+ + + + [...]
--- OUTSIDE RECORDS SUMMARY | ~2019-12-13 | XMS | Encounter Summary ---
Demographics + + + | Address | [address] | | | [place] [address] | + + + | Home Phone [...] Providers + +------+ + | Care Retail Associate Manager Bilingual Name | Role | Phone [...] | | | | | | [address] [place], [place] | | | | | | [address] | | | | | | [phone] | | | +--------+ + + + [...]
--- OUTSIDE RECORDS SUMMARY | ~2019-12-13 | XMS | Encounter Summary ---
Demographics + + + | Address | [address] | | | [place] [address] | + + + | Home Phone [...] Providers + +------+ + | Care Surveyor Helper Name | Role | Phone | [...] + | 11/22/ | Refill | [facility] | Alanis, | Medication Refill | | 2018 | | MEDICINE [address] | MD Petrona | | | | | [place], | [address] [facility] | | | | | [place] [address] | [place] [address] | | | | | [phone] | [phone] | | | | | | | [...] | | | | | [place] [address] | | | | | | [phone] | | | | | | | | +--------+---------+ + + + | 12/20/ | Office | Otolaryngology | Ulysses Genao MD | | | 2019 | Visit | | [address] | | | | | | [address] [place] | | | | | | [place] [address] | | | | | | [phone] | | | | | | | | +--------+---------+ + + + | 02/15/ | Office | Internal Medicine | Alanis, | | | 2019 | Visit | | MD Petrona | | | | | | [address] [place] | | | | | | [place] [address] | | | | | | [phone] | | | | | | | | +--------+---------+ + + + documented as of this encounter Visit Diagnoses Not on filedocumented in this encounter"
--- OUTSIDE RECORDS SUMMARY | ~2019-12-13 | XMS | Encounter Summary ---
Demographics + + + | Address | [address] | | | [place] [address] | + + + | Home Phone [...] Team Providers + +------+ + | Care Appellate Law Clerk Name | Role | Phone [...] | | | [facility] | [place], [place] | Bypass Surgery November | | | | [address] | [address] | 2003; | | | | [address] | [phone] | Hypothyroidism; | | | | [facility] | | Essential | | | | Physician's | | hypertension 401.9; | | | | Pavilion [place], | | Iron Deficiency | | | | [place] [address] | | | | | | [phone] | | | +--------+---------+ + + + [...] 300 mg) by oral route once daily dkncqdpdac-phfvswnipsrxk-hsyjlzgx (FIORICET) 50-325-40 mg Oral Tablet take 2 [...]
--- OUTSIDE RECORDS SUMMARY | ~2019-12-13 | XMS | Encounter Summary ---
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 Provider: DELFINA MOLINA ANP Nathalia Garrett - 007 11:16 AM PDT Physical Therapy Medicare Progress Note Date: 11/27/2006 Belinda Barnes Shefali [id number]. 1960 Start of Care: 11/24/2006 Referring Provider: [...] the free margin and undersurface of the contract preparer horn of the medial meniscus suspicious for [...] gait using bilateral lofstrand crutches Patient's goals: [facility]: Ambulation with single based cane Treatment: Patient [...] are to increased strength and endurance . correction goals: Improve gait so patient can ambulate with single based cane. Plan: Patient will return for f/u visit in 2 weeks and at that time will progress in core, hip, and knee strengthening regime. Treatment began: 1100 Treatment ended: 1200 Nathalia Arora, Physical Therapist License #[id number] documented in this encoun ter Plan of Treatment + + +--------+ + + | Name | Type | Priori | Associated Diagnoses | Order Schedule | | | | ty | | | + + +--------+ + + | [place] [facility] | Procedures | Routin | [...]
--- OUTSIDE RECORDS SUMMARY | ~2019-12-13 | XMS | Encounter Summary ---
Demographics + + + | Address | [address] | | | [place] [address] | + + + | Home Phone [...] Providers + +------+ + | Care Take Out Waitress Name | Role | Phone | + +------+ + | Sulaiman Carrera MD | PCP | | + +------+ + Encounter Details +--------+ + + + + | Date | Type | Department | Care Team | Description | +--------+ + + + + | 01/02/ | Ancillary | Registration 3181 | Beto Meeks MD | | | 2004 | Registratio | [facility] | [address] | | | | n | [place] Mailcode: RPB07 | [place], [place] | | | | | [place], [place] | [address] | | | | | [address] | [phone] | | | | | [phone] | | | +--------+ + + + [...] DEPARTMENT OF | [address] | [place] [address] | | | PATHOLOGY | [address] | | | + + + + + | [facility] DEPARTMENT OF | [address] | [place] [address] | | | PATHOLOGY | [address] [...] [facility] DEPARTMENT OF | [address] [facility] | [place] [address] | | | PATHOLOGY | [address] | | | + + + + + | [place] DEPARTMENT OF | [address] [facility] | [place] [address] | | | PATHOLOGY | [address] [...] | + + + + + | [facility] | [address] | [place] [address] | | | LABORATORY | | | | + + + + + documented in this encounter Visit Diagnoses Not on filedocumented in this encounter"
--- OUTSIDE RECORDS SUMMARY | ~2019-12-13 | XMS | Encounter Summary ---
Demographics + + + | Address | [address] | | | [place] [address] | + + + | Home Phone [...] Providers + +------+ + | Care Label Stitcher Name | Role | Phone | [...] | | [address] | [address] [facility] | | | | | [place], [place] | [place] [address] | | | | | [address] | [phone] | | | | | [phone] | | | +--------+ + + + [...] 12/18/17 1321 by | | lyssa | nghq-sdp-oiazfv catheter system; | Jaye Bird, | Lucy [...] EVALUATION Belinda Meehan 57 y.o. female 1960 [id number] Procedure(s) EGD (N/A Mouth) COLONOSCOPY (N/A Rectum) [...] signed by Ruben Kumar MD 12/18/2017 13:56 [facility] Ruben Kumar MD a t 12/18/2017 1:56 PM PDTAnesthesia Preprocedure Evaluation - Ruben Kumar MD - 10:54 AM PDT ANESTHESIA PREANESTHESIA EVALUATION Belinda Meehan 57 y.o. female 1960 [id number] Procedure(s): EGD (N/A Mouth) COLONOSCOPY (N/A Rectum) [...] | | | | | | [address] [place] | | | | | | [place] [address] | | | | | | [phone] | | | | | | | | +--------+---------+ + + + | 12/20/ | Office | Otolaryngology | Ulysses Genao MD | | | 2019 | Visit | | [address] | | | | | | [address] | | | | | | [place] [address] | | | | | | [phone] | | | | | | | | +--------+---------+ + + + | 02/15/ | Office | Internal Medicine | Alanis, | | | 2019 | Visit | | MD Petrona | | | | | | [address] [place] | | | | | | [place] [address] | | | | | | [phone] | | | | | | | [...]
--- OUTSIDE RECORDS SUMMARY | ~2019-12-13 | XMS | Encounter Summary ---
Demographics + + + | Address | [address] | | | [place] [address] | + + + | Home Phone [...] Providers + +------+ + | Care Stock Sheets Cleaner Inspector Name | Role | Phone | [...] | | 2006 | | [facility] [place] | MD Darrion,PhD [address] | | | | | for Health and | [address] | | | | | Healing [address] | [place], [place] | | | | | Ave Mailcode: | [address] | | | | | [facility] | [phone] | | | | | Health and Healing, | | | | | | [facility] | | | | | | [place], [place] | | | | | | [address] | | | | | | [phone] | | | +--------+ + + + [...]
--- OUTSIDE RECORDS SUMMARY | ~2019-12-13 | XMS | Encounter Summary ---
Demographics + + + | Address | [address] | | | [place] [address] | + + + | Home Phone [...] Providers + +------+ + | Care Systems Test Analyst Name | Role | Phone | [...] [address] | | | | | [facility] | [place], [place] | | | | | [address] | [address] | | | | | [address] | [phone] | | | | | [facility] | | | | | | Physician's | | | | | | Pavilion [place], | | | | | | [place] [address] | | | | | | [phone] | | | +--------+--------+ + + + [...]
--- OUTSIDE RECORDS SUMMARY | ~2019-12-13 | XMS | Encounter Summary ---
Demographics + + + | Address | [address] | | | [place] [address] | + + + | Home Phone [...] Providers + +------+ + | Care Syrup Machine Laborer Name | Role | Phone | [...] Paperwork | | 2016 | | MEDICINE [address] [place] [address] | MD Petrona | | | | | [place], | [address] [facility] | | | | | [place] [address] | [place] [address] | | | | | [phone] | [phone] | | | | | | | [...] explained the process for referrals in the [facility] system. She will wait a couple days and call the pain clinic or us to see where things are in the p rocess. She is anxious but accepting of the delays r/t insurance authorization. elephone Alan Ennis - 03/02/2017 10:00 AM PDTPatient calling on the status of refer ral. elephone Tuan Grimes - 03/02/2017 8:14 AM PDTContact/Caller: Belinda Contact Number: [phone] Provider/Nurse: Emmy Reason for Call: Pt calling in stating they got in contact with [facility] offi ce and were advised [...] | | | | | [place] [address] | | | | | | [phone] | | | | | | | | +--------+---------+ + + + | 12/20/ | Office | Otolaryngology | Ulysses Genao MD | | | 2019 | Visit | | [address] | | | | | | [address] [place] | | | | | | [place] [address] | | | | | | [phone] | | | | | | | | +--------+---------+ + + + | 02/15/ | Office | Internal Medicine | Alanis, | | | 2019 | Visit | | MD Petrona | | | | | | [address] | | | | | | [place] [address] | | | | | | [phone] | | | | | | | | +--------+---------+ + + + documented as of this encounter Visit Diagnoses Not on filedocumented in this encounter"
--- OUTSIDE RECORDS SUMMARY | ~2019-12-13 | XMS | Encounter Summary ---
Demographics + + + | Address | [address] | | | [place] [address] | + + + | Home Phone [...] Team Providers + +------+ + | Care Compressed Gas Plant Worker Name | Role | Phone [...] Refill Request | | 2009 | | [facility] [address] | [address] | (SUCRALFATE) | | | | Beth[place] Mailcode: CH4S | [facility] | | | | | [facility] | [place], [place] | | | | | and Healing, | [address] | | | | | [facility] | [phone] | | | | | Floor [place], [place] | | | | | | [address] | | | | | | [phone] | | | +--------+--------+ + + + [...]
--- OUTSIDE RECORDS SUMMARY | ~2019-12-13 | XMS | Encounter Summary ---
Demographics + + + | Address | [address] | | | [place] [address] | + + + | Home Phone [...] Team Providers + +------+ + | Care Audiovisual Technician Name | Role | Phone | [...] | Osteopenia | MD Beto | Density [facility] | | | | | Procedures | [address] | [address] | | | | | CONSULT TO | Ave | [address] | | | | | BONE | [place], [place] | Rd Mailcode: | | | | | DENSITOMETRY | [address] | [address] | | | | | | Phone: | [address] | | | | | | [phone] | [place], [place] | | | | | | Fax: | [address] | | | | | | [phone] | Phone: | | | | | | | [phone] | | | | | | | Fax: | | | | | | | [phone] | +--------+--------+ + + + + Encounter [...] Nutrition | [facility], | | | | | [address] | [place] [address] | | | | | [facility] Mailcode: | | | | | | [address] | | | | | | [place], [place] | | | | | | [address] | | | | | | [phone] | | | +--------+ + + + [...] from the Results section by P Byron [[id number]] on | | | 04/17/2009 at 5:16 PM (File: [id number]) | | + + + BONE DENSITOMETRY [...]
--- OUTSIDE RECORDS SUMMARY | ~2019-12-13 | XMS | Encounter Summary ---
Demographics + + + | Address | [address] | | | [place] [address] | + + + | Home Phone [...] Team Providers + +------+ + | Care Coordinator Of Rehabilitation Services Name | Role | Phone | [...] | 02/10/ | Refill | [facility] | Alanis, | Medication Refill | | 2018 | | MEDICINE [address] | MD Petrona | | | | | [place], | [address] | | | | | [place] [address] | [place] [address] | | | | | [phone] | [phone] | | | | | | | [...] AM PDTReceived fax from Tayo morelos in [employer] for a refill of her ondansetron 4 [...] | | | | | [place] [address] | | | | | | [phone] | | | | | | | | +--------+---------+ + + + | 12/20/ | Office | Otolaryngology | Ulysses Genao MD | | | 2019 | Visit | | [address] | | | | | | [address] [place] | | | | | | [place] [address] | | | | | | [phone] | | | | | | | | +--------+---------+ + + + | 02/15/ | Office | Internal Medicine | Alanis, | | | 2019 | Visit | | MD Petrona | | | | | | [address] [place] | | | | | | [place] [address] | | | | | | [phone] | | | | | | | | +--------+---------+ + + + documented as of this encounter Visit Diagnoses + + | Diagnosis | + + | Nausea Nausea alone | + + documented in this encounter"
--- OUTSIDE RECORDS SUMMARY | ~2019-12-13 | XMS | Encounter Summary ---
Demographics + + + | Address | [address] | | | [place] [address] | + + + | Home Phone [...] Providers + +------+ + | Care Ict Teacher Name | Role | Phone | [...] as of this encounter Progress Notes Interface, Student Support Advisor In - 02/19/2005 5:04 AM PDT [id number] GEOVANNI Barnes Clinic Date: 01/17/2005 Clinic: General [...] with Dr. Dwaine Larson. She has a kvc-bfuk-rbacb lesion at the distal aspect of her [...] closure. Devin German M.D. Dwaine Larson M.D. [facility] / [id number] / [id number] / [id number] / [id number] Electronically signed by Dwaine Larson 02-18-2005 09:15:31 AM documented i n this encounter Plan of Treatment Not on filedocumented as of this encounter Visit Diagnoses Not on filedocumented in this encounter
--- OUTSIDE RECORDS SUMMARY | ~2019-12-13 | XMS | Encounter Summary ---
Demographics + + + | Address | [address] | | | [place] [address] | + + + | Home Phone [...] Providers + +------+ + | Care Teacher Theater Arts Name | Role | Phone | + [...] + + | 08/03/ | Telephone | [facility] | Alanis, | Personal Problem | | 2018 | | MEDICINE [address] | MD Petrona | (Rash in private | | | | [address] [place], | [address] [facility] | area) | | | | [place] [address] | [place] [address] | | | | | [phone] | [phone] | | | | | | | [...] . Shania ent can be reached at [phone] signed by Sia Bai at 08/03/2018 3:30 [...] | [facility] [address] | | | | | | [address] | | | | | | [place] [address] | | | | | | [phone] | | | | | | | | +--------+---------+ + + + | 12/20/ | Office | Otolaryngology | Ulysses Genao MD | | | 2019 | Visit | | [address] | | | | | | [address] [place] | | | | | | [place] [address] | | | | | | [phone] | | | | | | | | +--------+---------+ + + + | 02/15/ | Office | Internal Medicine | Alanis, | | | 2019 | Visit | | MD [place]ron[place] | | | | | | [address] | | | | | | [place] [address] | | | | | | [phone] | | | | | | | | +--------+---------+ + + + documented as of this encounter Visit Diagnoses Not on filedocumented in this encounter
--- OUTSIDE RECORDS SUMMARY | ~2019-12-13 | XMS | Encounter Summary ---
Demographics + + + | Address | [address] | | | [place] [address] | + + + | Home Phone [...] Team Providers + +------+ + | Care Substation Superintendent Name | Role | Phone | [...] | | | [facility] | [place], [place] | and counseling | | | | [address] | [address] | | | | | [address] | [phone] | | | | | [facility] | | | | | | Physician's | | | | | | Pavilion [place], | | | | | | [place] [address] | | | | | | [phone] | | | +--------+ + + + [...]
--- OUTSIDE RECORDS SUMMARY | ~2019-12-13 | XMS | Encounter Summary ---
Demographics + + + | Address | [address] | | | [place] [address] | + + + | Home Phone [...] Providers + +------+ + | Care Infrastructure Security Architect Name | Role | Phone [...] + + | 12/21/ | Office | [facility] Comprehensive | Ines Molinaanne, | Left Knee [...] Hip | | | | [facility] | | Region Pain; | | | | and Healing, | | Spondylosis with | | | | Building | | Myelopathy, Lumbar | | | | Floor [place], [place] | | Region; Herniated | | | | [address] | | Lumbar | | | | [phone] | | Intervertebral Disc | | | | | | L4-5; Fibromyalgia | | | | | | syndrome 729.1; | | | | | | Opioid Dependence, | | | | | | Continuous ([facility]); | | | | | | Major [...] Belinda Meehan is a 46 y.o. female [facility] [...] Simons. We reviewed materials risk notice and [facility] opioid agreement. A ll questions [...] management and reduce opioid need. DELFINA MOLINA [facility] Mail code CH 4P [facility] and [facility] [address] [facility] [address] Ailyn Foster 12/22/19 12:51 PM [...] + + | Opioid dependence, continuous ([facility]) Opioid type dependence, continuous | + + [...]
--- OUTSIDE RECORDS SUMMARY | ~2019-12-13 | XMS | Encounter Summary ---
[...] Providers + +------+ + | Care Lab Pack Chemist Name | Role | Phone | [...] | | | [facility] | [place], [place] | and counseling; | | | | [address] | [address] | [place] | | | | [address] | [phone] | | | | | [facility] | | | | | | Physician's | | | | | | Pavilion [place], | | | | | | [place] [address] | | | | | | [phone] | | | +--------+ + + + [...]
--- OUTSIDE RECORDS SUMMARY | ~2019-12-13 | XMS | Encounter Summary ---
Demographics + + + | Address | [address] | | | [place] [address] | + + + | Home Phone [...] Team Providers + +------+ + | Care Negative Turner Apprentice Name | Role | Phone | [...] of this encounter Progress Notes Interface, Wire Steward In - 02/15/2006 2:03 AM PDT [id number] GEOVANNI BELINDA Molly [id number] Clinic Date: 01/29/2006 Clinic: Endocrinology Belinda Meehan [...] her visits to the Emergency Department in [place], she apparently had elevated "liver enzyme levels" and her blood pressure was up to 160/98. She subsequently underwent diagnostic testing that apparently included CT imaging of her abdomen and upper GI endoscopy, abdominal ultrasound, and other testing; the results of which have apparently been normal. She started going to [employer] approximately 2 weeks ago which has increased her level of physical activity. She has only occasional headaches, due in part to ongoing treatment with propanolol. She apparently was referred by Dr. Padgett to see a sword swallower here at [facility] [...] [facility] and pulse 60 beats per minute [...] evaluated recently at the Emergency Department in [place]. Her alkaline phosphatase level today is about [...] would benefit from being evaluated by a sword swallower. According to the patient, no gastroenterologists are available in [place]. She needs to petition her primary care provider and her insurance company to give the necessary authorization to allow her to be evaluated by a sword swallower. Plan: 1. Await results of serum 25-hydroxyvitamin [...] She needs to be seen by a sword swallower. 5. Return to see me again in 3 months. Beto Meeks M.D. PD / HS [id number] / [id number] / [id number] / cc: Pedrito Gutierrez M.D. [address] [place] [address] Chris Padgett M.D. Electronically signed by Beto Meeks 02-14-2006 02:02:55 AM documented i n this encounter Plan of Treatment Not on filedocumented as of this encounter Visit Diagnoses Not on filedocumented in this encounter
--- OUTSIDE RECORDS SUMMARY | ~2019-12-13 | XMS | Encounter Summary ---
Demographics + + + | Address | [address] | | | [place] [address] | + + + | Home Phone [...] Providers + +------+ + | Care Tree Warden Name | Role | Phone | [...] | | | | SURGERY - | [place], [place] | [address] [place] | | | | | UROLOGY | [address] | for Health | | | | | | Phone: | dat [address], | | | | | | [phone] | [address], | | | | | | Fax: | 10th Floor | | | | | | [phone] | [place], [place] | | | | | | | [address] | | | | | | | Phone: | | | | | | | [phone] | | | | | | | Fax: | | | | | | | [phone] | +--------+--------+ + + + + Reason [...] | Status Post | | | | [facility] | [facility] [place] | Bariatric Surgery | | | | and Healing, | [address] | | | | | [facility] | [phone] | | | | | Floor [place], [place] | | | | | | [address] | | | | | | [phone] | | | +--------+---------+ + + + [...] coughing. Medications: Fentanyl 25 mcg 72 hours, [place]/JOJO 10 mg/325 mg PRN Q 6 hrs, [...]
--- OUTSIDE RECORDS SUMMARY | ~2019-12-13 | XMS | Encounter Summary ---
Demographics + + + | Address | [address] | | | [place] [address] | + + + | Home Phone [...] Providers + +------+ + | Care Data Processing Auditor Name | Role | Phone | [...] of this encounter Progress Notes Interface, Manager Infusion In - 02/19/2005 5:04 AM PDT [id number] GE[facility]ANNI Barnes Clinic Date: 01/17/2005 Clinic: General [...] with Dr. Dwaine Larson. She has a pmd-dcmb-emgso lesion at the distal aspect of her [...] closure. Devin German M.D. Dwaine Larson M.D. [facility] / [id number] / [id number] / [id number] / [id number] Electronically signed by Dwaine Larson 02-18-2005 09:15:31 AM documented i n this encounter Plan of Treatment Not on filedocumented as of this encounter Visit Diagnoses Not on filedocumented in this encounter
--- OUTSIDE RECORDS SUMMARY | ~2019-12-13 | XMS | Encounter Summary ---
Demographics + + + | Address | [address] | | | [place] [address] | + + + | Home Phone [...] | | | | Clinical Nutrition | [place], [place] | | | | | [address] | [address] | | | | | Loop Mailcode: OPC5 | [phone] | | | | | Outpatient Clinic | | | | | | [facility], | | | | | | [place] [address] | | | | | | [phone] | | | +--------+ + + + [...]
--- OUTSIDE RECORDS SUMMARY | ~2019-12-13 | XMS | Encounter Summary ---
Demographics + + + | Address | [address] | | | [place] [address] | + + + | Home Phone [...] Team Providers + +------+ + | Care Fingerprint Clerk Name | Role | Phone | [...] Thoracic or | [place], | [address] | | | | | lumbosacral | Carlos Armijo MD | [place], | | | | | neuritis or | [address] | [place] | | | | | | ST [place] | [address] | | | | | radiculitis, | [place], [place] | Phone: | | | | | unspecified | [address] | [phone] | | | | | Procedures | Phone: | Fax: | | | | | [place] INJECT | [phone] | [phone] | | | | | ANES/STEROID | Fax: | | | | | | FORAMEN | [phone] | | | | | | LUMBAR/SACRA [...] + + + + | 01/19/ | [facility] | [facility] | Carlos Hsieh | Lumbar radiculopathy | | 2015 | Encounter | MED CTR XRAY [address] | T, [address] | primarily right | | | | [address] [place] | [facility] [place] | | | | | [place] [address] | [id number] | | | | | [phone] | | | | | | | Grounds And Nursery SpecialistKristyn | | | | | | [place] [...] | | | | | [place] [address] | | | | | | [phone] | | | | | | | | +--------+---------+ + + + | 12/20/ | Office | Otolaryngology | Ulysses Genao MD | | | 2019 | Visit | | [address] | | | | | | [place] | | | | | | [place] [address] | | | | | | [phone] | | | | | | | | +--------+---------+ + + + | 02/15/ | Office | Internal Medicine | Alanis, | | | 2019 | Visit | | MD Petrona | | | | | | [address] [place] | | | | | | [place] [address] | | | | | | [phone] | | | | | | | [...] 01/19/2015 B[facility] In[facility] | [facility] | | Diagnosis: Lumbar radiculopathy ICD-9 Code 724.4 Belinda Basilio | [facility] | | Shefali presents to the fluoroscopy suite for [facility] | | fluoroscopically-guided bilateral L5-S1 transforaminal [...] ST. | [address] | [place] | [phone] | | [facility] | | [address] | | | - IMAGING | | [...]
--- OUTSIDE RECORDS SUMMARY | ~2019-12-13 | XMS | Encounter Summary ---
Demographics + + + | Address | [address] | | | [place] [address] | + + + | Home Phone [...] Providers + +------+ + | Care Beef Boner Name | Role | Phone | + +------+ + | Petrona Thapa | PCP | | | MD | | | + +------+ + Encounter Details +--------+ + + + + | Date | Type | Department | Care Team | Description | +--------+ + + + + | 03/02/ | Hospital | [facility] | Alanis, | Neck pain on right | | 2018 | Encounter | MED CTR [address] XRAY | MD Petrona | side | | | | [address] [place] | [address] [place] | | | | | [place], [place] | [place] [address] | | | | | [address] | [phone] | | | | | [phone] | | | +--------+ + + + [...] | | | | | [place] [address] | | | | | | [phone] | | | | | | | | +--------+---------+ + + + | 12/20/ | Office | Otolaryngology | Ulysses eGnao MD | | | 2019 | Visit | | [address] | | | | | | [address] [place] | | | | | | [place] [address] | | | | | | [phone] | | | | | | | | +--------+---------+ + + + | 02/15/ | Office | Internal Medicine | Alanis, | | | 2019 | Visit | | MD Petrona | | | | | | [address] [place] | | | | | | [place] [address] | | | | | | [phone] | | | | | | | [...]
--- OUTSIDE RECORDS SUMMARY | ~2019-12-13 | XMS | Encounter Summary ---
Demographics + + + | Address | [address] | | | [place] [address] | + + + | Home Phone [...] Providers + +------+ + | Care Office Communication Professor Name | Role | Phone | [...] | | | | L223A Physician's | [place], [place] | | | | | [address] | [address] | | | | | [place], [place] | [phone] | | | | | [address] | | | | | | [phone] | | | +--------+ + + + [...] | | + +---------+ + + | [facility] DEPARTMENT OF | | | | [...]
--- OUTSIDE RECORDS SUMMARY | ~2019-12-13 | XMS | Encounter Summary ---
Demographics + + + | Address | [address] | | | [place] [address] | + + + | Home Phone [...] Team Providers + +------+ + | Care Cold Work Operator Name | Role | Phone | [...] + | 05/28/ | Telephone | [facility] | Alanis, | Pain Management | | 2016 | | MEDICINE [address] | MD Petrona | | | | | [place], | [address] [facility] | | | | | [place] [address] | [place] [address] | | | | | [phone] | [phone] | | | | | | | [...] to drive all the way to the [facility] and was told by her insurance that there was a clinic in the [facility]. I inf ormed her that she would need to call them to see if they would accept her insurance since s he was from [place] and prescribe medications. She has a follow up appt with on 06/01/17 to discuss. elephone En Maylin Rain - 05/28/2017 11:04 AM PSTContact/Caller: Belinda Contact Number: [phone] Provider/Nurse: Emmy Reason for Call: Patient is [...] | | | | | [place] [address] | | | | | | [phone] | | | | | | | | +--------+---------+ + + + | 12/20/ | Office | Otolaryngology | Ulysses Genao MD | | | 2019 | Visit | | [address] | | | | | | [address] [place] | | | | | | [place] [address] | | | | | | [phone] | | | | | | | | +--------+---------+ + + + | 02/15/ | Office | Internal Medicine | Alanis, | | | 2019 | Visit | | MD Petrona | | | | | | [address] [place] | | | | | | [place] [address] | | | | | | [phone] | | | | | | | | +--------+---------+ + + + documented as of this encounter Visit Diagnoses Not on filedocumented in this encounter"
--- OUTSIDE RECORDS SUMMARY | ~2019-12-13 | XMS | Encounter Summary ---
Demographics + + + | Address | [address] | | | [place] [address] | + + + | Home Phone [...] Providers + +------+ + | Care Cold Roll Catcher Name | Role | Phone | [...] + + | 12/10/ | Telephone | [facility] | Alanis, | Lab Results | | 2017 | | MEDICINE [address] | MD Petrona | | | | | [place], | [address] [facility] | | | | | [place] [address] | [place] [address] | | | | | [phone] | [phone] | | | | | | | [...] | | | | | | [place] [address] | | | | | | [phone] | | | | | | | | +--------+---------+ + + + | 12/20/ | Office | Otolaryngology | Ulysses Genao MD | | | 2019 | Visit | | [address] | | | | | | [address] [place] | | | | | | [place] [address] | | | | | | [phone] | | | | | | | | +--------+---------+ + + + | 02/15/ | Office | Internal Medicine | Alanis, | | | 2019 | Visit | | MD Petrona | | | | | | [address] [place] | | | | | | [place] [address] | | | | | | [phone] | | | | | | | | +--------+---------+ + + + documented as of this encounter Visit Diagnoses Not on filedocumented in this encounter"
--- OUTSIDE RECORDS SUMMARY | ~2019-12-13 | XMS | Encounter Summary ---
Demographics + + + | Address | [address] | | | [place] [address] | + + + | Home Phone [...] Providers + +------+ + | Care Change Control Specialist Name | Role | Phone | + +------+ + | Pedrito Gutierrez MD | PCP | | + +------+ + Encounter Details +--------+---------+ + + + | Date | Type | Department | Care Team | Description | +--------+---------+ + + + | 07/30/ | Office | Digestive Health | Eliezer Ruano, | Abdominal Pain | | 2006 | Visit | [place] [address] | [address] | (Primary Dx) | | | | Ave Mailcode: CH4S | [address] | | | | | [facility] | [facility] [place] | | | | | and Healing, | [address] | | | | | [facility] 1, 6th | [phone] | | | | | Floor [place], [place] | | | | | | [address] | | | | | | [phone] | | | +--------+---------+ + + + [...] [facility] [address] [facility], 6th [place] [address] alena Palacio - 07/30 4:09 PM PSTS: [...]
--- OUTSIDE RECORDS SUMMARY | ~2019-12-13 | XMS | Encounter Summary ---
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 Start of Care: 06/23/2006 Referring Provider: [...] keep hydrated, went to the ED in [place] and was sent home by the M[facility] without a ny treatment and advised by him to contact the pain clinic. Patient did not some relief with her last treatment, and continues her exercises consistent ly. She is walking daily at [facility] for 15-20 minutes, sitting X 60 [...] + + +--------+ + + | WI MANUAL THER | Procedures | Routin | [...] + + +--------+ + + | WI THERAPEUTIC | Procedures | Routin | Cervical [...] + + +--------+ + + | WI THERAPEUTIC | Procedures | Routin | Cervical [...]
--- OUTSIDE RECORDS SUMMARY | ~2019-12-13 | XMS | Encounter Summary ---
Demographics + + + | Address | [address] | | | [place] [address] | + + + | Home Phone [...] Providers + +------+ + | Care Regional Forester Name | Role | Phone | [...] + | 04/08/ | Telephone | [facility] Division of | Carlos Arreola, | Swelling | | 2005 | | Gastroenterology/Hep | [address] | (ANDREEA) | | | | atology [address] | [address] | | | | | [address] | [place] [address] | | | | | Mailcode: PV310 | [phone] | | | | | [facility] | | | | | | [address] | | | | | | [place], [place] | | | | | | [address] | | | | | | [phone] | | | +--------+ + + + [...]
--- OUTSIDE RECORDS SUMMARY | ~2019-12-13 | XMS | Encounter Summary ---
Demographics + + + | Address | [address] | | | [place] [address] | + + + | Home Phone [...] Team Providers + +------+ + | Care Greenhouse Technician Name | Role | Phone | [...] as of this encounter Progress Notes Interface, Mixing Plant Operator In - 02/17/2006 3:04 AM [facility] [place] [address] [place], [place] [address] or October 02, 2001 Pedrito Gutierrez M.D. [facility] [address] [place] [address] RE: BELINDA GALARZA MR #: [id number] Dear Dr. 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 Sincerely, Issac Meeks M.D. poultry farmer meat, Division of Endocrinology, Diabetes, and Clinical Intelligence Support Officer, Metabolic Disorders Clinic Ph#: [phone] [facility] / [id number] / [id number] / [id number] / C: 10/13/2001 praful [id number] signed by Interface, Mixing Plant Operator In at 02/17/2006 3:04 [facility]ed in this encounter Plan of Treatment Not on filedocumented as of this encounter Visit Diagnoses Not on filedocumented in this encounter"
--- OUTSIDE RECORDS SUMMARY | ~2019-12-13 | XMS | Encounter Summary ---
Demographics + + + | Address | [address] | | | [place] [address] | + + + | Home Phone [...] Providers + +------+ + | Care Occupational Medicine Specialist Name | Role | Phone [...] | | | | L223A Physician's | [place], [place] | | | | | [address] | [address] | | | | | [place], [place] | [phone] | | | | | [address] | | | | | | [phone] | | | +--------+ + + + [...]
--- OUTSIDE RECORDS SUMMARY | ~2019-12-13 | XMS | Encounter Summary ---
Demographics + + + | Address | [address] | | | [place] [address] | + + + | Home Phone [...] Providers + +------+ + | Care Silver Plater Name | Role | Phone | [...] | | | | | [address] | [address] [place], [place] | | | | | [place], [place] | [address] | | | | | [address] | | | | | | [phone] | | | +--------+ + + + [...] insure continuity of care. Please contact the [facility] at with any questions [...] | | | | | [place] [address] | | | | | | [phone] | | | | | | | | +--------+---------+ + + + | 12/20/ | Office | Otolaryngology | Ulysses Genao MD | | | 2019 | Visit | | [address] | | | | | | [place] | | | | | | [place] [address] | | | | | | [phone] | | | | | | | | +--------+---------+ + + + | 02/15/ | Office | Internal Medicine | Alanis, | | | 2019 | Visit | | MD Petrona | | | | | | [address] [place] | | | | | | [place] [address] | | | | | | [phone] | | | | | | | | +--------+---------+ + + + documented as of this encounter Visit Diagnoses Not on filedocumented in this encounter"
--- OUTSIDE RECORDS SUMMARY | ~2019-12-13 | XMS | Encounter Summary ---
Demographics + + + | Address | [address] | | | [place] [address] | + + + | Home Phone [...] Providers + +------+ + | Care Sole Assessor Name | Role | Phone | [...] | | | | | Procedures | [place], [place] | [address] [facility] | | | | | CONSULT TO | [address] | [address] | | | | | SURGERY - | | [address] [place], | | | | | GENERAL | | [place] | | | | | | | [address] | | | | | | | Phone: | | | | | | | [phone] | | | | | | | Fax: | | | | | | | [phone] | +--------+--------+ + + + + Encounter Details +--------+ + + + + | Date | Type | Department | Care Team | Description | +--------+ + + + + | 08/31/ | [facility]ble Seaman | Digestive Health | Nuris Cardenas ANP | Hemorrhoid (Primary | | 2008 | | Center [address] | | Dx) | | | | [address] | | | | | | Mailcode: [id number] | | | | | | [facility] | | | | | | [place], [place] | | | | | | [address] | | | | | | [phone] | | | +--------+ + + + [...]
--- OUTSIDE RECORDS SUMMARY | ~2019-12-13 | XMS | Encounter Summary ---
Demographics + + + | Address | [address] | | | [place] [address] | + + + | Home Phone [...] Providers + +------+ + | Care Can Top Setter Name | Role | Phone | [...] | 11/29/ | Refill | [facility] | Alanis, | Medication Refill | | 2019 | | MEDICINE [address] | MD Petrona | | | | | [place], | [address] [place] | | | | | [place] [address] | [place] [address] | | | | | [phone] | [phone] | | | | | | | [...] seek m edical attention at the in [place] as is out of the office this afternoon. [facility] ds and accepts elephone Encounter - Long Owen - 11/30/2019 4:20 PM PDTMedication: zofran Strength: 4mgs Directions: 4 per day Quantity Remainin Pharmacy: [facility] Call/Mail/Hand Touch Up Painter/Fax: call Date of Last Refill: unknown Date [...] | | | | | [place] [address] | | | | | | [phone] | | | | | | | | +--------+---------+ + + + | 12/20/ | Office | Otolaryngology | Ulysses Genao MD | | | 2019 | Visit | | [address] | | | | | | [address] [place] | | | | | | [place] [address] | | | | | | [phone] | | | | | | | | +--------+---------+ + + + | 02/15/ | Office | Internal Medicine | Alanis, | | | 2020 | Visit | | MD Petron[place] | | | | | | [address] | | | | | | [place] [address] | | | | | | [phone] | | | | | | | | +--------+---------+ + + + documented as of this encounter Visit Diagnoses + + | Diagnosis | + + | Nausea Nausea alone | + + documented in this encounter"
--- OUTSIDE RECORDS SUMMARY | ~2019-12-13 | XMS | Encounter Summary ---
Demographics + + + | Address | [address] | | | [place] [address] | + + + | Home Phone [...] Providers + +------+ + | Care Boiler House Mechanic Name | Role | Phone | [...] (has been | | 2007 | | [place] [address] | [address] | in the bathroom | | | | Ave Mailcode: CH4S | [facility] | since one this | | | | [facility] | [place], [place] | morning with | | | | and Healing, | [address] | IBS/dumping syndrome | | | | Building 1, | [phone] | symptoms) | | | | Floor [place], [place] | | | | | | [address] | | | | | | [phone] | | | +--------+ + + + [...]
--- OUTSIDE RECORDS SUMMARY | ~2019-12-13 | XMS | Encounter Summary ---
Demographics + + + | Address | [address] | | | [place] [address] | + + + | Home Phone [...] Providers + +------+ + | Care Curriculum Assistant Name | Role | Phone | [...] + + | 12/12/ | Telephone | [facility] | Alanis, | Headache (Adult - | 2019 | | MEDICINE [address] | MD [place]rona | Recurrent Or Known | | | | [place], | [address] [place] | Dx Migraines) | | | | [place] [address] | [place] [address] | | | | | [phone] | [phone] | | | | | | | [...] seek medical attention at the ED in [facility]. Patient states son is with her [...] | | | | | [place] [address] | | | | | | [phone] | | | | | | | | +--------+---------+ + + + | 12/20/ | Office | Otolaryngology | Ulysses Genao MD | | | 2019 | Visit | | [address] | | | | | | [address] [place] | | | | | | [place] [address] | | | | | | [phone] | | | | | | | | +--------+---------+ + + + | 02/15/ | Office | Internal Medicine | Emmy-Tajti, | | | 2019 | Visit | | MD [place] | | | | | | [address] [place] | | | | | | [place] [address] | | | | | | [phone] | | | | | | | | +--------+---------+ + + + documented as of this encounter Visit Diagnoses Not on filedocumented in this encounter"
--- OUTSIDE RECORDS SUMMARY | ~2019-12-13 | XMS | Encounter Summary ---
Demographics + + + | Address | [address] | | | [place] [address] | + + + | Home Phone [...] Providers + +------+ + | Care Shoe Stainer Name | Role | Phone | [...] | | | Stay [address] | [place], [place] | Examination; HTN | | | | [address] | [address] | (Hypertension); | | | | Mailcode: [id number] | [phone] | Chronic Pain | | | | [address] | | | | | | [address] [facility] [place] | | | | | | [address] | | | | | | [phone] | | | +--------+---------+ + + + [...] dietary restrictions or a bowel preparation. Your [facility] gical team will give you additional [...] PM please call your surgeons' office for [id number]. PARKING Parking for patients and visitors is available in the [facility] Parking structure located across from [...] ADVICE FOR DAY OF SURGERY: Remove nail bulgarian from at least one fingernail (if applicable) [...] surgeries scheduled to take place on the [place] at the [facility]: Surgeries scheduled in the [facility] ([address] [place] [address]): registration is located on the 4th floor of [facility] (Day Surgery). Surgeries scheduled in the [facility]: registration is located on the 9th floor . For surgeries scheduled to take place at the [facility]: registration i s located on the 4th floor (Surgery Center). AVOID THESE MEDICATIONS FOR 7 DAYS BEFORE SURGERY PRODUCTS CONTAINING ASPIRIN Jacquelyn-Madera, Anacin, Anexsia with Codeine, Len nos, Aspirin, Aspirin suppositories, Ascri ptin, Aspergum, Axotal, B-A-C, Baby Aspirin, Lucila, BC Powder, Bexophene, Buffaprin, Bufferi n, Buffinol, Cama-Arthritis Strength, Congespirin, Mckean, Coricidin, Damason, Darvon, Dristan , Anastasia-Gesic, Digel, Dolprin #3 Tablets, Donatab, Doxaphene, Duragesic, Easprin, Ecotrin, Dipika grin Forte, Emiprin, Emprazil, Equagesic, Equazine M, Excedrin, Fiogesic, Fiorgen PH, Fioric et, Fiorinal, 4-Way Cold Tablet Gemnisyn, Indocin, Liquprin, Lortab ASA, Magnaprin, Marnal, Meprobamate, Midol, Momentum, N orgesic, [place], Orphengesic, Pabalate, P-A-C, Percodan, Presalin, Robaxasil, Roxiprin, Bunny eto, Salocol SK-65 Compound, Sine-Aid, Sine-Off,, Oakridge, Supac, Talwin Compound, Trigesic, Tolectin , Traiminicin, Vanquish, ZORprin, Zomax PRODUCTS CONTAINING IBUPROFEN Advil, Aleve, Haltran, Medipren, Midol, Motrin, Naproxyn, Nuprin, Rufen OTHER PRODUCTS WHICH MAY PROMOTE BLEEDING Vitamin E, Gingko Biloba, Marine Fatty Acids, Lindale-3 Fish Oil Supplements documented in this encounter [...] [facility] DEPARTMENT | [address] | [place] [address] | | | PATHOLOGY | [address] | | | + + + + + | [facility] DEPARTMENT OF | [address] | [place] [address] | | | PATHOLOGY | [address] [...] DEPARTMENT OF | [address] | [place] [address] | | | PATHOLOGY | [address] | | | + + + + + | [facility] DEPARTMENT | [address] | [place] [address] | | | PATHOLOGY | [address] [...] [facility] | [address] | [place] [address] | | | PATHOLOGY | [address] | | | + + + + + | [facility] | [address] | [place] [address] | | | PATHOLOGY | [...] DEPARTMENT OF | [address] | [place] [address] | | | PATHOLOGY | [address] | | | + + + + + | [place] DEPARTMENT OF | [address] | [place] [address] | | | PATHOLOGY | [address] [...] view image for the detailed interpretation from [employer] results. | CARDIOLOGY | | | | + + + + + + + + | Performing | Address | City/State/Zipcode | Phone Number | | Organization | | | | + + + + + | [facility] | [address] | [place], [place] | | | CARDIOLOGY | [address] | [address] | | + + + + + | [facility] | [address] | [place], [place] | | | CARDIOLOGY | [address] | [address] | | + + + + + [...]
--- OUTSIDE RECORDS SUMMARY | ~2019-12-13 | XMS | Encounter Summary ---
Demographics + + + | Address | [address] | | | [place] [address] | + + + | Home Phone [...] Providers + +------+ + | Care In House Counsel Name | Role | Phone | [...] + + | 08/18/ | Telephone | [facility] | Miranda Lambert, | Follow-up Diabetic | | 2006 | | Pain Center at | ANP | Assessment | | | | [facility] | | | | | | [address] | | | | | | Mailcode: CH15P | | | | | | [facility] | | | | | | and Healing, | | | | | | Building | | | | | | Floor [place], [place] | | | | | | [address] | | | | | | [phone] | | | +--------+ + + + [...]
--- OUTSIDE RECORDS SUMMARY | ~2019-12-13 | XMS | Encounter Summary ---
Demographics + + + | Address | [address] | | | [place] [address] | + + + | Home Phone [...] + | 11/15/ | Office | [facility] | Emmy-Tajti, | Arthralgia of both | | 2019 | Visit | MEDICINE [address] | MD Petrona | hands (Primary Dx); | | | | [address] [place], | [address] [facility] | Acquired | | | | [place] [address] | [place] [address] | hypothyroidism; | | | | [phone] | [phone] | Migraine without | | | | [...] Procedure: COLONOSCOPY; Surgeon: Luther Brito MD; Location: [facility] MEDICAL PROCEDURE UNIT DILATION AND CURETTAGE OF UTERUS ELBOW SURGERY FINGER TRIGGER RELEASE 2003 FINGER TRIGGER RELEASE 2010 GASTRIC BYPASS SURGERY 2004 HYSTERECTOMY 05/14/1980 JOINT REPLACEMENT Bilateral 2007 2008 KNEE ARTHROSCOPY 2005 LAPAROSCOPY 01/27/2015 LAPAROTOMY 2008 ROTATOR CUFF REPAIR 2005 SPINE SURGERY TONSILLECTOMY 1964 UPPER GASTROINTESTINAL ENDOSCOPY N/A 12/18/2017 Procedure: EGD; Surgeon: Luther Brito MD; Location: [facility] MEDICAL PROCEDURE UNIT CURRENT MEDICATIONS [...] (See Comments) Confused and questionable for seizures Tnjdhrgvgm-Ydvb-Gxxqwvmp Hives and Rash Cephalexin Hives Ciprofloxacin Hives [...] Note: Parts of this documentwere created using [employer] / [employer] speech recognition software. As a r esult, [...] | | | | | [place] [address] | | | | | | [phone] | | | | | | | | +--------+---------+ + + + | 12/20/ | Office | Otolaryngology | Ulysses Genao MD | | | 2019 | Visit | | [address] | | | | | | [address] [place] | | | | | | [place] [address] | | | | | | [phone] | | | | | | | | +--------+---------+ + + + | 02/15/ | Office | Internal Medicine | Alanis, | | | 2019 | Visit | | MD Petrona | | | | | | [address] [place] | | | | | | [place] [address] | | | | | | [phone] | | | | | | | [...] + | [address] [facility] | [address] | [place] | [phone] | | [facility] | | [address] | | | - LABORATORY | | [...] | | | | | with both ME-3 and | | | | | | [...] + + | Performed at: 01 - [facility] [address] [address], | REFERENCE LAB | | [place], [place] [id number] Abalone Processor: Manish Chin MD, Phone: | [facility] | | [phone] Performed at: - [address] | | | [place], [place] [id number] Abalone Processor: Jeannine Mendoza MD, | | | Phone: [phone] | | + + + + + + + + | Performing | Address | City/State/Zipcode | Phone Number | | Organization | | | | + + + + + | REFERENCE LAB | [address] | [place], [place] | [phone] | | [facility] | Drive [facility] | [address] | | + + + + + [...] + + | Performed at: 01 - [facility] [address], | REFERENCE LAB | | [place], [place] [address] Abalone Processor: Bandar Gan MD, Phone: | [facility] | | [phone] | | + + + + + + + + | Performing | Address | City/State/Zipcode | Phone Number | | Organization | | | | + + + + + | REFERENCE LAB | [address] | [place], [place] | [phone] | | [facility] | Drive [facility] | [address] | | + + + + + Uric Acid (11/15/2018 9:59 AM PDT) + +-------+ + + + | Component | Value | Ref Range | Performed | Pathologist | | | | | At | Signature | + +-------+ + + + | Uric Acid | 5.4 | 3.1 - 7.8 mg/dL | [facility] | | | | [...] [address] | [place] | [phone] | | [facility] | | [address] | | | - LABORATORY | | | | + + + + + C-Reactive Protein (11/15/2018 9:59 AM PDT) + +-------+ + + + | Component | Value | Ref Range | Performed | Pathologist | | | | | At | Signature | + +-------+ + + + | CRP | <4.00 | <10.00 mg/L | [facility] | | | | [...] [address] | [place] | [phone] | | [facility] | | [address] | | | - LABORATORY | | [...] + | [facility] | [address] | [place] | [phone] | | [facility] | | [address] | | | - LABORATORY | | [...] mL/min/1.73m2 | [facility] | | | [facility]IAN | RATE,ESTIMATED | | MEDICAL | | | | mL/min/1.99r8Hbas than | | CENTER - | | [...] 4.3 | 3.2 - 4.8 g/dL | [facility] | | | | | | [facility] | | | | | | MEDICAL | | | | | | CENTER - | | | | | | LABORATORY | | + + + + + + | Bilirubin | 0.4 | 0.3 - 1.2 mg/dL | [facility] | | | Total [...] [address] | [place] | [phone] | | [facility] | | [address] | | | - LABORATORY | | [...]
--- OUTSIDE RECORDS SUMMARY | ~2019-12-13 | XMS | Encounter Summary ---
Demographics + + + | Address | [address] | | | [place] [address] | + + + | Home Phone [...] Providers + +------+ + | Care Business Associate Name | Role | Phone | [...] + | 01/01/ | Refill | [facility] | Alanis, | Medication Refill | | 2017 | | MEDICINE [address] | MD Petrona | | | | | [place], | [address] [facility] | | | | | [place] [address] | [place] [address] | | | | | [phone] | [phone] | | | | | | | [...] | | | | | [place] [address] | | | | | | [phone] | | | | | | | | +--------+---------+ + + + | 12/20/ | Office | Otolaryngology | Ulysses Genao MD | | | 2019 | Visit | | [address] | | | | | | [address] [place] | | | | | | [place] [address] | | | | | | [phone] | | | | | | | | +--------+---------+ + + + | 02/15/ | Office | Internal Medicine | Alanis, | | | 2019 | Visit | | MD Petrona | | | | | | [address] [place] | | | | | | [place] [address] | | | | | | [phone] | | | | | | | | +--------+---------+ + + + documented as of this encounter Visit Diagnoses Not on filedocumented in this encounter"
--- OUTSIDE RECORDS SUMMARY | ~2019-12-13 | XMS | Encounter Summary ---
Demographics + + + | Address | [address] | | | [place] [address] | + + + | Home Phone [...] Team Providers + +------+ + | Care Lodging Manager Name | Role | Phone | [...] (has been | | 2007 | | [place] [address] | [address] | in the bathroom | | | | Ave Mailcode: CH4S | [facility] | since one this | | | | [facility] | [place], [place] | morning with | | | | and Healing, | [address] | IBS/dumping syndrome | | | | Building [address], | [phone] | symptoms) | | | | Floor [place], [place] | | | | | | [address] | | | | | | [phone] | | | +--------+ + + + [...]
--- OUTSIDE RECORDS SUMMARY | ~2019-12-13 | XMS | Encounter Summary ---
Demographics + + + | Address | [address] | | | [place] [address] | + + + | Home Phone [...] Providers + +------+ + | Care Brim Flexer Name | Role | Phone | [...] + | 05/03/ | Telephone | [facility] | Alanis, | Medication Prior | | 2017 | | [address] | MD Petrona | Authorization | | | | [place], | [address] [facility] [place] | (Sumatriptan) | | | | [place] [address] | [place] [address] | | | | | [phone] | [phone] | | | | | | | [...] 05/03/2018 12:24 PM PSTReceived prior auth request [facility] [address]. No PA is needed on medication, pharmacy already notified. Please see referral#[id number] on details if needed. Closed encounter today. [...] | | | | | [place] [address] | | | | | | [phone] | | | | | | | | +--------+---------+ + + + | 12/20/ | Office | Otolaryngology | Ulysses Genao MD | | | 2019 | Visit | | [address] | | | | | | [address] [place] | | | | | | [place] [address] | | | | | | [phone] | | | | | | | | +--------+---------+ + + + | 02/15/ | Office | Internal Medicine | Alanis, | | | 2019 | Visit | | MD Petrona | | | | | | [address] [place] | | | | | | [place] [address] | | | | | | [phone] | | | | | | | | +--------+---------+ + + + documented as of this encounter Visit Diagnoses Not on filedocumented in this encounter"
--- OUTSIDE RECORDS SUMMARY | ~2019-12-13 | XMS | Encounter Summary ---
Demographics + + + | Address | [address] | | | [place] [address] [...] Providers + +------+ + | Care Apartment Maintenance Worker Name | Role | Phone | + +------+ + | Pedrito Gutierrez MD | PCP | | + +------+ + Encounter Details +--------+---------+ + + + | Date | Type | Department | Care Team | Description | +--------+---------+ + + + | 07/30/ | Office | Comprehensive Pain | Nathalia Arora | Cervical Spondylosis | | 2006 | Visit | [facility] | [address] | without Myelopathy | | | | [place] [address] | Clementina W[place]ler [place], | (Primary Dx); | | | | [place] Mailcode: | [place] [address] | Spondylosis with | | | | [facility] | | Myelopathy, Lumbar | | | | Health and Healing, | | Region; Herniated | | | | Building | | Lumbar | | | | Floor [place], [place] | | Intervertebral Disc; | | | | [address] | | Unspecified Myalgia | | | | [phone] | | and Myositis | +--------+---------+ + [...] Progress Note Date: 07/30/2006 [place] Shefali [id number] Start of Care: 06/23/2006 Referring Provider: [...] her today. Patient has multiple appts. At [facility] today, including a f/u [...] + + +--------+ + + | IA MANUAL THER | Procedures | Routin | [...] + + +--------+ + + | [place] THERAPEUTIC | Procedures | Routin | Cervical [...]
--- OUTSIDE RECORDS SUMMARY | ~2019-12-13 | XMS | Encounter Summary ---
Demographics + + + | Address | [address] | | | [place] [address] | + + + | Home Phone [...] Providers + +------+ + | Care Clinical Nurse Manager Name | Role | Phone [...] | Pain | Diagnoses | Miracle, | Towns, | | | | Management | LBP (low | NIHARIKA Jean | Lukasz Rhodes, PhD | | | | | back pain) | [address] | [address] | | | | | DJD | [address] | Ave | | | | | (degenerativ | [place], [place] | [place], [place] | | | | | e joint | [address] | [address] | | | | | disease) of | | Phone: | | | | | knee Knee | | [phone] | | | | | pain Major | | Fax: | | | | | depressive | | [phone] | | | | | disorder, | [...] 06/21/ | Office | Pain Center at [facility] | Lukasz Charles, | Major Depressive | | 2008 | Visit | [address] | PhD [address] | Disorder, Recurrent | | | | Mailcode: CH15P | [place], [place] | Episode, Mild (HCC); | | | | [place] [facility] | [address] | LBP (Low Back | | | | and Healing, | [phone] | Pain); Migraine | | | | | | Headache | | | | Floor [place], [place] | | | | | | [address] | | | | | | [phone] | | | +--------+---------+ + + + [...] migraine specialist this week. She reported that [employer] has done some sewing and she found [...] benefit as she becomes more active. Diagnosis: [place] I: 1. (296.31) Major depressive disorder, recurrent, mild. 2. (309.24) Adjustment disorder with anxiety. 3. 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 [place] II: Deferred [place] III: abdominal pain, migraine headache, low back pain. [place] IV: low finances [place] V: GAF 55-60 Plan: return with next medical follow-up appointment. Check mood, pain, surgical recovery , relaxation, activity, distraction, eating. Ask about headache specialist, physical therap y. Continue cognitive/behavioral therapy. Total time spent with patient was approximately 45 minutes. LUKASZ CHARLES PHD [facility] [address] [facility], [address] [place] [address] documented in this en counter Plan of [...]
--- OUTSIDE RECORDS SUMMARY | ~2019-12-13 | XMS | Encounter Summary ---
Demographics + + + | Address | [address] | | | [place] [address] | + + + | Home Phone [...] Providers + +------+ + | Care Mobile Security Specialist Name | Role | Phone [...] Lab findings, | | 2006 | | [place] [address] | [address] | teaching, guidance, | | | | Ave Mailcode: CH4S | [address] | and counseling | | | | [facility] | [place], [place] | | | | | and Healing, | [address] | | | | | [facility] | [phone] | | | | | [place], [place] | | | | | | [address] | | | | | | [phone] | | | +--------+ + + + [...]
--- OUTSIDE RECORDS SUMMARY | ~2019-12-13 | XMS | Encounter Summary ---
Demographics + + + | Address | [address] | | | [place] [address] | + + + | Home Phone [...] Team Providers + +------+ + | Care Drier Unloader Name | Role | Phone | + +------+ + | Maria Esther Cintron MD | PCP | | + +------+ + Encounter Details +--------+ + + + + | Date | Type | Department | Care Team | Description | +--------+ + + + + | 08/26/ | Telephone | [facility] | Chris Padgett, | | | 2010 | | [place] [address] | [address] [facility] | | | | | Beth[place] Mailcode: CH4S | [address] | | | | | Center for [facility] | [place], [place] | | | | | and Healing, | [address] | | | | | Building , 6th | [phone] | | | | | Floor [place], [place] | | | | | | [address] | | | | | | [phone] | | | +--------+ + + + [...]
--- OUTSIDE RECORDS SUMMARY | ~2019-12-13 | XMS | Encounter Summary ---
Demographics + + + | Address | [address] | | | [place] [address] | + + + | Home Phone [...] Team Providers + +------+ + | Care Unemployment Insurance Hearing Officer Name | Role | Phone | [...] [address] | | | | | [facility] | [place], [place] | | | | | and [place], | [address] | | | | | [facility] , | [phone] | | | | | Floor [place], [place] | | | | | | [address] | | | | | | [phone] | | | +--------+ + + + [...]
--- OUTSIDE RECORDS SUMMARY | ~2019-12-13 | XMS | Encounter Summary ---
Demographics + + + | Address | [address] | | | [place] [address] | + + + | Home Phone [...] 2006 | Visit | Rheumatology [address] | INFORMATION TECHNOLOGY SECURITY ANALYST | Fibromyalgia; | | | | [address] | | Fibromyalgia | | | | Mailcode: OPC5 | | | | | | Outpatient Clinic | | | | | | [facility], | | | | | | [place] [address] | | | | | | [phone] | | | +--------+---------+ + + + [...] 4-5/5 for all major deltoids, biceps, triceps. Cathode Ray Tube Assembler slightly weak. Tone is normal. There is [...] cervical spine MRI to be done at [facility]. A few of these patients have been [...]
--- OUTSIDE RECORDS SUMMARY | ~2019-12-13 | XMS | Encounter Summary ---
Demographics + + + | Address | [address] | | | [place] [address] | + + + | Home Phone [...] Providers + +------+ + | Care Carton Stenciler Name | Role | Phone | + [...] | Osteopenia | | 2006 | | [place] [address] | [address] [facility] | | | | | [place] Mailcode: CH4S | [address] | | | | | [facility] | [place], [place] | | | | | and Healing, | [address] | | | | | [facility] | [phone] | | | | | Floor [place], [place] | | | | | | [address] | | | | | | [phone] | | | +--------+ + + + [...]
--- OUTSIDE RECORDS SUMMARY | ~2019-12-13 | XMS | Encounter Summary ---
Demographics + + + | Address | [address] | | | [place] [address] | + + + | Home Phone [...] + +------+ + | Care Hot Box Operator Name | Role | Phone | + +------+ + | Sulaiman Carrera MD | PCP | | + +------+ + Encounter Details +--------+ + + + + | Date | Type | Department | Care Team | Description | +--------+ + + + + | 10/05/ | Ancillary | Registration [address] | Ramon Ibarra, | | | 2006 | Registratio | [facility] [address] | [address] [facility] | | | | n | [address] Mailcode: RPB07 | [place], [place] | | | | | [place], [place] | [address] | | | | | [address] | [phone] | | | | | [phone] | | | +--------+ + + + [...]
--- OUTSIDE RECORDS SUMMARY | ~2019-12-13 | XMS | Encounter Summary ---
Demographics + + + | Address | [address] | | | [place] [address] | + + + | Home Phone [...] + +------+ + | Care Air Brake Mechanic Name | Role | Phone | [...] + + | 06/22/ | Office | [facility] | Delfina Molina, | Herniated Lumbar | | 2006 | Visit | Pain Center at | ANP | Intervertebral Disc | | | | [facility] | | L4-5; Spondylosis | | [...] | Dependence, | | | | Floor [place], [place] | | Continuous ([facility]); | | | | [address] | | Major Depressive | | | | [phone] | | Disorder, Recurrent | | | [...] due to degenerative spine and joints disease Bleinda Meehan is here today for a follow [...] the past week of Fentanyl patch and [place]. Trileptal he lps with right leg pain and sleep. "been sleeping great". Expectations for this visit include : discussing the sticking problems with the fentanyl pa tc and her insurance not being willing prescribe [place]. There have been no other change in [...] an d her insurance stopped coverage of [place]. I believe doing pool therapy three times [...] might be d iverting or using her [place]? Until I know more I will not be prescribing a breakthrough sina n medication but am willing to prescribe early for her fentanyl. I have asked Belinda to milk pickup driver and be responsible for her own medication milk pickup driver. I discussed with Tasha Nolasco CMA the issue of Insurance PA for [place] this was in progress as of the time the patient was here. At the time I completed this note we had word that Ins urance would not approve coverage. I will discuss this with Belinda once I know her story o n where the dispensed #70 [place] is. [ Tasha reported calling Friend Traveler who reported: Belinda's s on picking up [...] with each exchange. 3. Patient instructed to milk pickup driver and be responsible for her own medications. 4. Follow up in two weeks to review pain management. Once she is again stable on the fen tanyl patch I will transfer her prescribing to Dr. Gutierrez. She has completed the Multidisci plinary patient Care program here at the [facility]. DELFINA MOLINA [facility] Mail code CH 4P [facility] and [address] [address] Tasha Can - 12/04/2006 7:43 [...] + | Opioid dependence, continuous ([facility]) Opioid type dependence, continuous | + [...]
--- OUTSIDE RECORDS SUMMARY | ~2019-12-13 | XMS | Encounter Summary ---
Demographics + + + | Address | [address] | | | [place] [address] | + + + | Home Phone [...] Providers + +------+ + | Care Guest House Manager Name | Role | Phone | [...] as of this encounter Progress Notes Interface, Provisioning Analyst In - 08/19/2005 2:05 AM PST [id number] [facility] [place] [facility] Date: 07/24/2005 Clinic: Hematology/Oncology [...] or malignancies. 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 She still smokes 1/2 [...] are appreciated. No petechiae. Laboratory: Labs from [place]: Homocysteine 8.5 and SANIA negative. CBC: White [...] laboratory studies that have been obtained from [place], it does not appear that she has [...] E supplementation. Karen Gramza, Joanna Sellers M.D. data warehouse developer / HS [id number] / [id number] / [id number] / [id number] cc: Pedrito Gutierrez M.D. [facility] [address] [place] [address] FAX: [phone] Electronically signed by Lukasz Sellers 08-18-2005 01:27:53 PM documented i n this encounter Plan of Treatment Not on filedocumented as of this encounter Visit Diagnoses Not on filedocumented in this encounter"
--- OUTSIDE RECORDS SUMMARY | ~2019-12-13 | XMS | Encounter Summary ---
Demographics + + + | Address | [address] | | | [place] [address] | + + + | Home Phone [...] Team Providers + +------+ + | Care Ships Or Barges Loader Name | Role | Phone | + +------+ + | Petrona Thapa | PCP | | | MD | | | + +------+ + Encounter Details +--------+ + + + + | Date | Type | Department | Care Team | Description | +--------+ + + + + | 05/04/ | Hospital | [facility] | [place], | Left hip pain | | 2017 | Encounter | [facility] | MD Petrona | | | | | [address] [place] | [address] [facility] | | | | | [place], [place] | [place] [address] | | | | | [address] | [phone] | | | | | [phone] | | | +--------+ + + + [...] | | 0 | | | | (KEYNONFaiza Ruiz) 0.004% | | | | | 9 | | ophthalmic solution | | | | | | + + + +---------+ + + documented as of this encounter Progress Notes Petrona Thapa MD - 05/10/2017 10:49 AM PSTL spine x-ray ordered, please prin jacobsen and fax to CmYudyElectronically signed by Petrona Thapa MD at [address] [...] | | | | | | [place] [address] | | | | | | [phone] | | | | | | | | +--------+---------+ + + + | 12/20/ | Office | Otolaryngology | Ulysses Genao MD | | | 2019 | Visit | | [address] | | | | | | [address] [place] | | | | | | [place] [address] | | | | | | [phone] | | | | | | | | +--------+---------+ + + + | 02/15/ | Office | Internal Medicine | Alanis, | | | 2019 | Visit | | MD Petrona | | | | | | [address] [place] | | | | | | [place] [address] | | | | | | [phone] | | | | | | | [...]
--- OUTSIDE RECORDS SUMMARY | ~2019-12-13 | XMS | Encounter Summary ---
Demographics + + + | Address | [address] | | | [place] [address] | + + + | Home Phone [...] Providers + +------+ + | Care Environmental Lead Name | Role | Phone | [...] as of this encounter Progress Notes Interface, Tint Layer In - 01/11/2005 5:17 PM PDT [place] [facility] [address] [place] [address] or June 26, 2003 Pedrito Gutierrez M.D. [address] [place] [address] RE: BELINDA MEEHAN MR #: [id number] Dear Dr. Gutierrez: I had the pleasure of seeing your patient, Ms. Belinda Meehan, today in the [facility] Division of Rheumatology Clinic. She was [...] Sincerely, Sesar Nash M.D. NURIA / SHARIF [id number] / [id number] / [id number] / [id number] cc: Kelley Alegre [address] [place] [address] FAX: [phone] signed by Interface, Tint Layer In at 01/11/2005 5:17 PM PDTdocumented in this encounter Plan of Treatment Not on filedocumented as of this encounter Visit Diagnoses Not on filedocumented in this encounter"
--- OUTSIDE RECORDS SUMMARY | ~2019-12-13 | XMS | Encounter Summary ---
Demographics + + + | Address | [address] | | | [place] [address] | + + + | Home Phone [...] | [facility] [place] | | | and [...] Providers + +------+ + | Care Mail Machine Operator Name | Role | Phone [...] | 04/26/ | Refill | [facility] | Alanis, | Medication Refill | | 2018 | | MEDICINE [address] | MD Petrona | | | | | [place], | [address] | | | | | [place] [address] | [place] [address] | | | | | [phone] | [phone] | | | | | | | [...] | | | | | [place] [address] | | | | | | [phone] | | | | | | | | +--------+---------+ + + + | 12/20/ | Office | Otolaryngology | Ulysses Genao MD | | | 2019 | Visit | | [address] | | | | | | [place] | | | | | | [place] [address] | | | | | | [phone] | | | | | | | | +--------+---------+ + + + | 02/15/ | Office | Internal Medicine | Alanis, | | | 2019 | Visit | | MD Petrona | | | | | | [address] [place] | | | | | | [place] [address] | | | | | | [phone] | | | | | | | | +--------+---------+ + + + documented as of this encounter Visit Diagnoses Not on filedocumented in this encounter"
--- OUTSIDE RECORDS SUMMARY | ~2019-12-13 | XMS | Encounter Summary ---
Demographics + + + | Address | [address] | | | [place] [address] | + + + | Home Phone [...] Team Providers + +------+ + | Care Pewter Caster Name | Role | Phone | + +------+ + | Sulaiman Carrera MD | PCP | | + +------+ + Encounter Details +--------+ + + + + | Date | Type | Department | Care Team | Description | +--------+ + + + + | 01/29/ | Ancillary | Registration 3181 | Beto Meeks MD | | | 2005 | Registratio | [facility] | [address] | | | | n | [place] Mailcode: RPB07 | [place], [place] | | | | | [place], [place] | [address] | | | | | [address] | [phone] | | | | | [phone] | | | +--------+ + + + [...] [facility] | [address] | [place], [place] | | | [facility] | | [address] | | + + + + + [...] | | | [facility] | | | | | | Laboratories. | | | | + + + + + + + + | Specimen | + + | | + + + + + + + | Performing | Address | City/State/Zipcode | Phone Number | | Organization | | | | + + + + + | [facility] | [address] | [place] [address] | | | LABORATORY | | | [...] BASO # | 0.0 | <0.3 | [facility] | | | | | | DEPARTMENT [...] [facility] DEPARTMENT OF | [address] | [place] [address] | | | PATHOLOGY | [address] | | | + + + + + | [facility] DEPARTMENT OF | [address] | [place] [address] | | | PATHOLOGY | [address] [...] DEPARTMENT OF | [address] | [place], [place] [address] | | | PATHOLOGY | [address] | | | + + + + + | [facility] DEPARTMENT OF | [address] | [place] [address] | | | PATHOLOGY | [address] [...] Performed At | + + + | [id number] Estimated GFR > 60 mL/min/1.73 sq m if non- | [facility] | | [id number] Estimated GFR > 60 mL/min/1.73 sq m [...] [facility] DEPARTMENT OF | [address] | [place] [address] | | | PATHOLOGY | [address] | | | + + + + + | [facility] DEPARTMENT OF | [address] | [place] [address] | | | PATHOLOGY | [address] | | | + + + + + documented in this encounter Visit Diagnoses Not on filedocumented in this encounter"
--- OUTSIDE RECORDS SUMMARY | ~2019-12-13 | XMS | Encounter Summary ---
Demographics + + + | Address | [address] | | | [place] [address] | + + + | Home Phone [...] of this encounter Progress Notes Interface, Medical Donation Professional In - 04/07/2006 2:32 AM PDT [id number] GEOVANNI SKELTON Molly [id number] Clinic Date: 04/01/2006 Clinic: Rheumatology Belinda Meehan is here for a couple of trigger point injections. She comes from [place]. Tomorrow, she is due for an EGD [...] 4 months. Caitlin Rivera M.S., F.N.P. / [id number] / [id number] / [id number] / [id number] Electronically signed by Caitlin Rivera 04-06-2006 03:23:35 PM documented i n this encounter Plan of Treatment Not on filedocumented as of this encounter Visit Diagnoses Not on filedocumented in this encounter"
--- OUTSIDE RECORDS SUMMARY | ~2019-12-13 | XMS | Encounter Summary ---
Demographics + + + | Address | [address] | | | [place] [address] | + + + | Home Phone [...] as of this encounter Progress Notes Interface, Foundation Relations Manager In - 01/12/2005 6:20 AM PDT [id number] GEOVANNI [facility] Date: 11/18/2004 Clinic: General [...] patient to send pictures to our financial aids officer and building services supervisor for evaluation for medicare for panniculectomy. Described [...] authorization for panniculectomy. Melisa Thorne / SHARIF [id number] / [id number] / [id number] / [id number] cc: Chris Padgett M.D. Joanna Valdez MD [facility] [address] [place] [address] Electronically signed by Kenisha Melton 11-26-2004 05:00:55 PM documented i n this encounter Plan of Treatment Not on filedocumented as of this encounter Visit Diagnoses Not on filedocumented in this encounter"
--- OUTSIDE RECORDS SUMMARY | ~2019-12-13 | XMS | Encounter Summary ---
Demographics + + + | Address | [address] | | | [place] [address] | + + + | Home Phone [...] Providers + +------+ + | Care Manufacturing Coordinator Name | Role | Phone | [...] + + | 01/11/ | Office | 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 01/11/2007 Belidna Meehan is a 46 y.o. female 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 Belinda Meehan is here today for a [...] until surgery pending 02/13 12/19. DELFINA MOLINA [facility] Center Mail code CH 4P [facility] and [address] [address] Ailyn Foster - 01/12/20 07 [...]
--- OUTSIDE RECORDS SUMMARY | ~2019-12-13 | XMS | Encounter Summary ---
[...] Team Providers + +------+ + | Care Coding Consultant Name | Role | Phone | + +------+ + | Pedrito Gutierrez MD | PCP | | + +------+ + Encounter Details +--------+ + + + + | Date | Type | Department | Care Team | Description | +--------+ + + + + | 03/26/ | Telephone | [facility] Division of | Carlos Arreola, | | | 2005 | | Gastroenterology/Hep | [address] | | | | | atology [address] | | | | | [address] | [place] [address] | | | | | Mailcode: PV310 | [phone] | | | | | Physician[facility] | | | | | | [address] | | | | | | [place], [place] | | | | | | [address] | | | | | | [phone] | | | +--------+ + + + [...]
--- OUTSIDE RECORDS SUMMARY | ~2019-12-13 | XMS | Encounter Summary ---
[...] Providers + +------+ + | Care Nurse Practitioner Name | Role | Phone [...] as of this encounter Progress Notes Interface, Fountain Attendant In - 01/12/2005 6:46 AM [facility] Date: 11/27/2003 Clinic: Surgery Clinic Subjective: This patient of Dr. Chris Padgett walks into clinic today to discuss her laparoscopic incisions and a lesion on her lower back. She was discharged from [facility] approximately 36 hours ago following a laparoscopic [...] discharge and would like to proceed to [place], where her home is. She agrees [...] us should she have any additional questions. Liliay Kirkpatrick. NELLY / SHARIF [id number] / [id number] / [id number] / [id number] Tdocumented in this encounter Plan of Treatment Not on filedocumented as of this encounter Visit Diagnoses Not on filedocumented in this encounter"
--- OUTSIDE RECORDS SUMMARY | ~2019-12-13 | XMS | Encounter Summary ---
Demographics + + + | Address | [address] | | | [place] [address] | + + + | Home Phone [...] Telephone | Pain Center at [facility] | Lukasz Ogden, | | | 2013 | | [address] | PhD [address] | | | | | Mailcode: CH15P | [place], [place] | | | | | [facility] | [address] | | | | | and Healing, | [phone] | | | | | Building | | | | | | Floor [place], [place] | | | | | | [address] | | | | | | [phone] | | | +--------+ + + + [...]
--- OUTSIDE RECORDS SUMMARY | ~2019-12-13 | XMS | Encounter Summary ---
Demographics + + + | Address | [address] | | | [place] [address] | + + + | Home Phone [...] Providers + +------+ + | Care Apartment Property Manager Name | Role | Phone | + +------+ + | Pedrito Gutierrez MD | PCP | | + +------+ + Encounter Details +--------+ + + + + | Date | Type | Department | Care Team | Description | +--------+ + + + + | 01/11/ | Telephone | Dig[facility]ive [facility] | Chris Padgett, | | | 2009 | | [place] [address] | [address] [facility] | | | | | [place] Mailcode: CH4S | [facility] | | | | | Center for Health | [place], [place] | | | | | and Healing, | [address] | | | | | Building | [phone] | | | | | Floor [place], [place] | | | | | | [address] | | | | | | [phone] | | | +--------+ + + + [...]
--- OUTSIDE RECORDS SUMMARY | ~2019-12-13 | XMS | Encounter Summary ---
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 Diagnosis: Grant I: 1. (296.32) Major depressive disorder, recurrent, moderate. 2. (309.24) Adjustment disorder with anxiety. 3. 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 Grant II: Deferred Grant III: abdominal pain, migraine headache, low back pain. Grant IV: low finances Grant V: GAF 55-60 Plan: Return in 3 months. Check mood, knee surgery, pacing, relaxation, activity, distraction. Continue cognitive/behavioral therapy. Discuss need for further sessions. Total time spent with patient was approximately 45 minutes. LUKASZ CHARLES PHD [facility] [address] [facility], 4th [place] [address] documented in this encount er Plan of [...] | | ([facility]) Spondylosis | | | | | | [...]
--- OUTSIDE RECORDS SUMMARY | ~2019-12-13 | XMS | Encounter Summary ---
Demographics + + + | Address | [address] | | | [place] [address] | + + + | Home Phone [...] Providers + +------+ + | Care Water Resources Project Manager Name | Role | Phone [...]
--- OUTSIDE RECORDS SUMMARY | ~2019-12-13 | XMS | Encounter Summary ---
Demographics + + + | Address | [address] | | | [place] [address] | + + + | Home Phone [...] Team Providers + +------+ + | Care Circulation Man Name | Role | Phone | [...] [address] | | | | | | [place], [place] | | | | | | [address] | | | | | | [phone] | | | +--------+ + + + [...]
--- OUTSIDE RECORDS SUMMARY | ~2019-12-13 | XMS | Encounter Summary ---
Demographics + + + | Address | [address] | | | [place] [address] | + + + | Home Phone [...] Providers + +------+ + | Care Head Cleaning Porter Name | Role | Phone [...] | | | | | [place]ina [place], | | | | | | [place] [address] | | | +--------+ + + + [...] | Patient: BELINDA MEEHAN J Med Rec: [id number] Sex F Bdate: 1960 | | Date/Time Data | | Entered Into [facility] | | Anesth PostOp | | Surgery Date [id number] 12/09/04 10:30 | | [id number] 11/23/03 10:57 | | Anesthesiologist SYEDA ANDREWS [...]
--- OUTSIDE RECORDS SUMMARY | ~2019-12-13 | XMS | Encounter Summary ---
Demographics + + + | Address | [address] | | | [place] [address] | + + + | Home Phone [...] Team Providers + +------+ + | Care Cobol Programmer Name | Role | Phone | [...] + | 03/29/ | Telephone | [facility] | [place], | Medication Prior | | 2017 | | [address] | [place] | Authorization | | | | [place], | [address] [place] | (Gabapentin ) | | | | [place] [address] | [place] [address] | | | | | [phone] | [phone] | | | | | | | [...] 9:32 AM PDTReceived prior auth request aren Juarez from [facility]. Script from pharmacy for requested 360 capsules was dated 2017. Medication has since been updated in January for 270 capsules that don't require author ization. Sent message to nurse asking to call pharmacy and give verbal over the phone with u pdated prescription. Please see referral#[id number] on details. Closed encounter today. Electro nically [...] | | | | | [place] [address] | | | | | | [phone] | | | | | | | | +--------+---------+ + + + | 12/20/ | Office | Otolaryngology | Ulysses Genao MD | | | 2019 | Visit | | [address] | | | | | | [address] | | | | | | [place] [address] | | | | | | [phone] | | | | | | | | +--------+---------+ + + + | 02/15/ | Office | Internal Medicine | Alanis, | | | 2019 | Visit | | MD [place] | | | | | | [address] [place] | | | | | | [place] [address] | | | | | | [phone] | | | | | | | | +--------+---------+ + + + documented as of this encounter Visit Diagnoses Not on filedocumented in this encounter"
--- OUTSIDE RECORDS SUMMARY | ~2019-12-13 | XMS | Encounter Summary ---
Demographics + + + | Address | [address] | | | [place] [address] | + + + | Home Phone [...] | Discussion | | 2007 | | [facility] & | MD | | | | | Healing [address] | | | | | | [place] Mailcode: CH8C | | | | | | [facility] | | | | | | and Healing, | | | | | | Building | | | | | | Floor [place], [place] | | | | | | [address] | | | | | | [phone] | | | +--------+ + + + [...]
--- OUTSIDE RECORDS SUMMARY | ~2019-12-13 | XMS | Encounter Summary ---
Demographics + + + | Address | [address] | | | [place] [address] | + + + | Home Phone [...] Team Providers + +------+ + | Care Mutual Funds Agent Name | Role | Phone | + +------+ + | Pedrito Gutierrez MD | PCP | | + +------+ + Encounter Details +--------+ + + + + | Date | Type | Department | Care Team | Description | +--------+ + + + + | 08/04/ | Telephone | Dig[facility]ive Health | Chris Padgett, | | | 2006 | | [place] [address] | [address] [facility] | | | | | [place] Mailcode: CH4S | [facility] | | | | | Center for [facility] | [place], [place] | | | | | and Healing, | [address] | | | | | Building | [phone] | | | | | Floor [place], [place] | | | | | | [address] | | | | | | [phone] | | | +--------+ + + + [...]
--- OUTSIDE RECORDS SUMMARY | ~2019-12-13 | XMS | Encounter Summary ---
Demographics + + + | Address | [address] | | | [place] [address] | + + + | Home Phone [...] Providers + +------+ + | Care Conductor Sleeping Car Name | Role | Phone | [...] [address] | | | | | [place], [place] | [place], [place] | | | | | [address] | [address] | | | | | [phone] | [phone] | | | | | | | [...]
--- OUTSIDE RECORDS SUMMARY | ~2019-12-13 | XMS | Encounter Summary ---
Demographics + + + | Address | [address] | | | [place] [address] | + + + | Home Phone [...] Providers + +------+ + | Care Liquor Tester Name | Role | Phone | [...] + + | 01/17/ | Office | [facility] | Alanis, | Surgical wound | | 2019 | Visit | MEDICINE [address] | MD [place] | infection (Primary | | | | [place], | [address] [place] | Dx) | | | | [place] [address] | [place] [address] | | | | | [phone] | [phone] | | | | | | | [...] Allergen Reactions Ensure Diarrhea Food Diarrhea Lactose Tsofnckyws-Qsc-Ivgr-Codeine Other (See Comments) Balance problems Codeine Sulfate Nausea Only Food Allergy Formula Diarrhea Ensure Levofloxacin Hives, Itching and Rash Butalbital Ropinirole Amitriptyline Hcl Other (See Comments) Confused and questionable for seizures Hltoasttkw-Kdwv-Ldefuqdw Hives and Rash Cephalexin Hives Ciprofloxacin Hives [...] Note: Parts of this documentwere created using DuckDuckGo speech recognition software. As a r esult, [...] [address] | | | | | | [facility] | | | | | | [place] [address] | | | | | | [phone] | | | | | | | | +--------+---------+ + + + | 12/20/ | Office | Otolaryngology | Ulysses Genao MD | | | 2019 | Visit | | [address] | | | | | | [place] | | | | | | [place] [address] | | | | | | [phone] | | | | | | | | +--------+---------+ + + + | 02/15/ | Office | Internal Medicine | Alanis, | | | 2019 | Visit | | MD [place] | | | | | | [address] [place] | | | | | | [place] [address] | | | | | | [phone] | | | | | | | | +--------+---------+ + + + documented as of this encounter Visit Diagnoses + + | Diagnosis | + + | Surgical wound infection - Primary Other postoperative infection | + + documented in this encounter
--- OUTSIDE RECORDS SUMMARY | ~2019-12-13 | XMS | Encounter Summary ---
Demographics + + + | Address | [address] | | | [place] [address] | + + + | Home Phone [...] Providers + +------+ + | Care Track Surfacing Machine Operator Name | Role | Phone [...] ANP | Assessment | | | | [facility] | | | | | | [address] | | | | | | Mailcode: CH15P | | | | | | [facility] | | | | | | and Healing, | | | | | | Building | | | | | | Floor [place], [place] | | | | | | [address] | | | | | | [phone] | | | +--------+ + + + [...]
--- OUTSIDE RECORDS SUMMARY | ~2019-12-13 | XMS | Encounter Summary ---
Demographics + + + | Address | [address] | | | [place] [address] | + + + | Home Phone [...] Providers + +------+ + | Care Advertising Specialist Name | Role | Phone | [...] | | | | CONSULT TO | [place], [place] | [address] | | | | | NEUROLOGY | [address] | for Health | | | | | | | and Healing, | | | | | | | Building [address], | | | | | | | 8th Floor | | | | | | | [place], [place] | | | | | | | [address] | | | | | | | Phone: | | | | | | | [phone] | | | | | | | Fax: | | | | | | | [phone] | +--------+--------+ + + + + Reason for Visit +--------+ + | Reason | Comments | +--------+ + | Pain | back, legs, headache | +--------+ + Encounter Details +--------+---------+ + + + | Date | Type | Department | Care Team | Description | +--------+---------+ + + + | 08/12/ | Office | [facility] | Delfina Molina, | Migraine Headache | | 2006 | Visit | Pain Center at | ANP | (Primary Dx); | | | | [facility] | | Spondylosis with | | | | [address] | | Myelopathy, Lumbar | | | | Mailcode: CH15P | | Region; Neck Pain; | | | | [facility] | | Right shoulder | | | | and Healing, | | rotator cuff strain; | | | | Building | | Fibromyalgia | | | | Floor [place], [place] | | syndrome 729.1; | | | | [address] | | Depression | | | | [phone] | | | +--------+---------+ + + + [...] Belinda Meehan is a 46 y.o. female [facility] Return Visit Chief [...] in two weeks or PRN DELFINA MOLINA [facility] Pain Center Mail code CH 4P [facility] and [address] [place] [address] Alisha Marquez - 7 [...]
--- OUTSIDE RECORDS SUMMARY | ~2019-12-13 | XMS | Encounter Summary ---
Demographics + + + | Address | [address] | | | [place] [address] | + + + | Home Phone [...] Providers + +------+ + | Care Telephone Plant Power Operator Name | Role | Phone | [...] Refill Request | | 2009 | | [place] [address] | [address] | (SUCRALFATE) | | | | [place] Mailcode: CH4S | [facility] | | | | | [facility] | [place], [place] | | | | | and Healing, | [address] | | | | | [facility] | [phone] | | | | | Floor [place], [place] | | | | | | [address] | | | | | | [phone] | | | +--------+--------+ + + + [...]
--- OUTSIDE RECORDS SUMMARY | ~2019-12-13 | XMS | Encounter Summary ---
[...] Team Providers + +------+ + | Care Flux Mixer Name | Role | Phone | [...] [address] | | | | | [place] [facility] | [place], [place] | | | | | [address] | [address] | | | | | [address] | [phone] | | | | | [facility] | | | | | | Physician's | | | | | | Pavilion [place], | | | | | | [place] [address] | | | | | | [phone] | | | +--------+--------+ + + + [...]
--- OUTSIDE RECORDS SUMMARY | ~2019-12-13 | XMS | Encounter Summary ---
Demographics + + + | Address | [address] | | | [place] [address] | + + + | Home Phone [...] Providers + +------+ + | Care Video Editing Intern Name | Role | Phone | [...] | | | [facility] | [place], [place] | | | | | [address] | [address] | | | | | [address] | [phone] | | | | | [facility] | | | | | | Physician's | | | | | | Pavilion [place], | | | | | | [place] [address] | | | | | | [phone] | | | +--------+--------+ + + + [...]
--- OUTSIDE RECORDS SUMMARY | ~2019-12-13 | XMS | Encounter Summary ---
Demographics + + + | Address | [address] | | | [place] [address] | + + + | Home Phone [...] Providers + +------+ + | Care Budget Counselor Name | Role | Phone [...] | | | | | Encounter | [place], [place] | [place] | | | | | for | [address] | [address] | | | | | long-term | | Phone: | | | | | (current) | | [phone] | | | | | use of other | | Fax: | | | | | medications | | [phone] | | | | | LBP (low [...] 04/21/ | Office | Pain Center at [facility] | Lukasz Charles, | Major depressive | | 2012 | Visit | [address] | PhD [address] | disorder, recurrent | | | | Mailcode: CH15P | [place], [place] | episode, moderate | | | | [place] [facility] [place] | [address] | ([facility]) (Primary Dx); | | | | and Healing, | [phone] | LBP (low back pain); | | | | | | Fibromyalgia; | | | | Floor [place], [place] | | Adjustment disorder | | | | [address] | | with anxiety | | | | [phone] | | | +--------+---------+ + + + [...] provider who recommended that she return to [facility] for pain assessment and treatment. She [...] some changes in her living situation. Diagnosis: Colwell I: 1. (296.32) Major depressive disorder, recurrent, moderate. 2. (309.24) Adjustment disorder with anxiety. Colwell II: Deferred Colwell III: abdominal pain, migraine headache, low back pain, fibromyalgia. Colwell IV: low finances Colwell V: GAF 55-60 Plan: return in 1 month. Check mood, pain, activity. Ask about visiting with Dr. Montero, spinal cord stimulator, any changes at home. Continue cognitive/behavioral therapy. Total time spent with patient was approximately 50 minutes. LUKASZ CHARLES PHD [facility] [address] [place] [address] [place] [address] documented in this en counter Plan of [...]
--- OUTSIDE RECORDS SUMMARY | ~2019-12-13 | XMS | Encounter Summary ---
Demographics + + + | Address | [address] | | | [place] [address] | + + + | Home Phone [...] Providers + +------+ + | Care Supervisor Screen Printing Name | Role | Phone | + [...] as of this encounter Progress Notes Interface, Sander And Buffer In - 01/11/2005 11:07 PM PDT Referred [...] is being seen by an orthopedist in [place]. She brings her brace today which she states is going well. The patient, however, yesterday awoke with neck stiffness and pain with spasming type pains in the area of her neck. She was seen in the emergency room last night in [place] for injection after a migraine. She states [...] Jesus M.D. Domingo Lozoya M.D. Gokul P [id number] cc: Pedrito Gutierrez MD [address] [place], [place] [email or web address] signed by Interface, Sander And Buffer In at 5 11:07 PM PDTdocumented in this encounter Plan of Treatment Not on filedocumented as of this encounter Visit Diagnoses Not on filedocumented in this encounter"
--- OUTSIDE RECORDS SUMMARY | ~2019-12-13 | XMS | Encounter Summary ---
[...] | | | | Clinical Nutrition | [place], [place] | | | | | [address] | [address] | | | | | Loop Mailcode: OPC5 | [phone] | | | | | Outpatient Clinic | | | | | | [facility] | | | | | | [place] [address] | | | | | | [phone] | | | +--------+ + + + [...] + + + | [facility] | [address] | [place] [address] | | | LABORATORY | | | [...] + + + | [facility] | [address] | [place] [address] | | | LABORATORY | | | | + + + + + documented in this encounter Visit Diagnoses Not on filedocumented in this encounter"
--- OUTSIDE RECORDS SUMMARY | ~2019-12-13 | XMS | Encounter Summary ---
Demographics + + + | Address | [address] | | | [place] [address] | + + + | Home Phone [...] | | | | Clinical Nutrition | [place], [place] | | | | | [address] | [address] | | | | | Loop Mailcode: OPC5 | [phone] | | | | | Outpatient Clinic | | | | | | [facility] | | | | | | [place] [address] | | | | | | [phone] | | | +--------+ + + + [...] + + + | [facility] | [address] | [place] [address] | | | LABORATORY | | | [...] + + + | [facility] | [address] | [place] [address] | | | LABORATORY | | | [...] Test performed by | | | [facility]. | | + + + + + + + + | Performing | Address | City/State/Zipcode | Phone Number | | Organization | | | | + + + + + | [facility] | [address] | [place] [address] | | | LABORATORY | | | | + + + + + documented in this encounter Visit Diagnoses Not on filedocumented in this encounter"
--- OUTSIDE RECORDS SUMMARY | ~2019-12-13 | XMS | Encounter Summary ---
Demographics + + + | Address | [address] | | | [place] [address] | + + + | Home Phone [...] Providers + +------+ + | Care Consumer Relations Specialist Name | Role | Phone [...] + + | 07/19/ | Telephone | [facility] | Alanis, | Lab Results | | 2019 | | MEDICINE [address] | MD Petrona | | | | | MAL[place], | [address] [facility] | | | | | [place] [address] | [place] [address] | | | | | [phone] | [phone] | | | | | | | [...] | | | | | [place] [address] | | | | | | [phone] | | | | | | | | +--------+---------+ + + + | 12/20/ | Office | Otolaryngology | Ulysses Genao MD | | | 2019 | Visit | | [address] | | | | | | [address] [place] | | | | | | [place] [address] | | | | | | [phone] | | | | | | | | +--------+---------+ + + + | 02/15/ | Office | Internal Medicine | Alanis, | | | 2019 | Visit | | MD Petrona | | | | | | [address] [place] | | | | | | [place] [address] | | | | | | [phone] | | | | | | | | +--------+---------+ + + + documented as of this encounter Visit Diagnoses Not on filedocumented in this encounter"
--- OUTSIDE RECORDS SUMMARY | ~2019-12-13 | XMS | Encounter Summary ---
Demographics + + + | Address | [address] | | | [place] [address] | + + + | Home Phone [...] Team Providers + +------+ + | Care Pacs Specialist Name | Role | Phone | [...] | | Essential | | | | [place], [place] | | hypertension 401.9; | | | | [address] | | Type II or | | | | [phone] | | unspecified type | | | [...] | | | LABORATORY | | | BHUTANESE | | | SERVICES, | | | [...] | + + + + + | [facility] | [address] | [place] [address] | | | SERVICES, CORE | [place] [...] + + + + + | [facility] | [address] | [place] [address] | | | SERVICES, CORE | [place] [...] | | If you are | | [place] | | | | screening for diabetes: [...] + | [facility] | [address] | [place] [address] | | | [place] | | | [...] [facility] | [address] | [place] [address] | | | SERVICES, SPECIAL | PARK [...] | + + + + + | [facility] | [address] | [place] [address] | | | SERVICES, CORE | KE[place]AN [...] [facility] | [address] | [place] [address] | | | SERVICES, SPECIAL | [place]AN [...] by | | | | | | [employer],[address] | | | | | | Abdiaziz Morales, [facility] [place] | | | | | | [address] | | | | | | [phone].[employer] System. | | | | | | Get [...] [facility] | [address] | [place], [place] | | | UNIV PTH - INTFC | | [address] | | + + + + + [...] to 20 ng/mL* | SERVICES, | | *(Floers CL et al. Pediatrics 2008; 122:1128-38.) 18 [...] | + + + + + | [facility] | [address] | [place] [address] | | | SERVICES, SPECIAL | KE[place]AN [...] | + + + + + | [facility] | [address] | [place] [address] | | | [place] | | | | + + + [...]
--- OUTSIDE RECORDS SUMMARY | ~2019-12-13 | XMS | Encounter Summary ---
[...] Team Providers + +------+ + | Care Missile Inspector Name | Role | Phone | [...] | | 2005 | | Center at [facility] 2005 | | endoscopy procedure | | | | S Mychal Kovacs | | | | | | Mailcode: [place] | | | | | | [facility] and | | | | | | [place] [address] | | | | | | [place], [place] | | | | | | [address] | | | | | | [phone] | | | +--------+ + + + [...] en doscopy in the Gastroenterology Clinic at [facility], see transcri bed report. Earnest Ward documented in this encount er Plan of Treatment + + +--------+ + + | Name | Type | Priori | Associated Diagnoses | Order Schedule | | | | ty | | | + + +--------+ + + | [facility], | Procedures | Routin [...]
--- OUTSIDE RECORDS SUMMARY | ~2019-12-13 | XMS | Encounter Summary ---
[...] Providers + +------+ + | Care System Specialist Name | Role | Phone | [...] | | | | | BONE | [place], [place] | Rd Mailcode: | | | | | DENSITOMETRY | [address] | [address] | | | | | | Phone: | Naeem De La Rosa | | | | | | [phone] | [place], [place] | | | | | | Fax: | [address] | | | | | | [phone] | Phone: | | | | | | | [phone] | | | | | | | Fax: | | | | | | | [phone] | +--------+--------+ + + + + Reason [...] | | | [facility] | [facility] [place] | | | | | [address] | [address] | | | | | [address] | [phone] | | | | | [facility] | | | | | | Physician's | | | | | | Pavilion [place], | | | | | | [place] [address] | | | | | | [phone] | | | +--------+ + + + [...]
--- OUTSIDE RECORDS SUMMARY | ~2019-12-13 | XMS | Encounter Summary ---
Demographics + + + | Address | [address] | | | [place] [address] | + + + | Home Phone [...] of this encounter Progress Notes Interface, Hr Manager In - 01/12/2005 6:32 AM PDTClinic Date: [...] improves, and the leg discomfort is actually public health representative of restless legs. I have given [...] 4 months. Caitlin Rivera M.S., F.N.P. / [id number] / [id number] / [id number] / [id number] cc: Pedrito Gutierrez M.D. [address], [place] [id number] signed by Interface, Hr Manager In at 01/12/2005 6:3 2 AM PDTdocumented in this encounter Plan of Treatment Not on filedocumented as of this encounter Visit Diagnoses Not on filedocumented in this encounter"
--- OUTSIDE RECORDS SUMMARY | ~2019-12-13 | XMS | Encounter Summary ---
Demographics + + + | Address | [address] | | | [place] [address] | + + + | Home Phone [...] Team Providers + +------+ + | Care Ops Analyst Name | Role | Phone | [...] | | | | | elsewhere | [place], [place] | [place], [place] | | | | | classified | [address] | [address] | | | | | Procedures | | Phone: | | | | | [place] | | [phone] | | | | | PSYCHOTHERPY | | Fax: | | | | | , OFFICE | | [phone] | | | | | (47-36) | | | +--------+--------+ + + + + Encounter Details +--------+---------+ + + + | Date | Type | Department | Care Team | Description | +--------+---------+ + + + | 07/15/ | Office | Pain Center at [facility] | Lukasz Charles, | Major Depressive | | 2006 | Visit | [address] | PhD [address] | Disorder, Recurrent | | | | Mailcode: CH15P | [place], [place] | Episode, Moderate | | | | 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 Diagnosis: [place] I: 1. (296.32) Major depressive disorder, recurrent, moderate. 2. (309.24) Adjustment disorder with anxiety. 3. 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 [place] II: Deferred [place] III: abdominal pain, migraine headache, low back pain. [place] IV: low finances [place] V: GAF 50 Plan: Return in 2 weeks. Check relaxation and activity. Check mood. Continue cognitive/behavio ral therapy. Total time spent with patient was approximately 50 minutes. 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
--- OUTSIDE RECORDS SUMMARY | ~2019-12-13 | XMS | Encounter Summary ---
Demographics + + + | Address | [address] | | | [place] [address] | + + + | Home Phone [...] Providers + +------+ + | Care Kick Press Operator Name | Role | Phone | + +------+ + | Sulaiman Carrera MD | PCP | | + +------+ + Encounter Details +--------+ + + + + | Date | Type | Department | Care Team | Description | +--------+ + + + + | 08/09/ | Hospital | Diagnostic Imaging | | | | 2013 | Encounter | Services at [facility] | | | | | | [address] | | | | | | Clementina Winkler AZWANG | | | | | | [facility], [address] [place] [address] | | | | | | [place], [place] | | | | | | [address] | | | | | | [phone] | | | +--------+ + + + [...] +---------+ + + | [facility] DEPARTMENT OF | | | | | [...]
--- OUTSIDE RECORDS SUMMARY | ~2019-12-13 | XMS | Encounter Summary ---
Demographics + + + | Address | [address] | | | [place] [address] | + + + | Home Phone [...] Team Providers + +------+ + | Care Automated Weaver Name | Role | Phone | [...] | Epigastric | T, ANP | [address] | | | | | pain Status | [place], [place] | [address] | | | | | post | [address] | [place] | | | | | bariatric | | [place], 4th | | | | | surgery | | floor | | | | | Procedures | | [place], [place] | | | | | CONSULT TO | | [address] | | | | | GI PROCEDURE | | Phone: | | | | | UNIT: EGD | | [phone] | | | | | | | Fax: | | | | | | | [phone] | +--------+--------+ + + + + Reason [...] | | | | | | Rd [place], | | | | | | | [place] | | | | | | | [address] | | | | | | | Phone: | | | | | | | [phone] | | | | | | | Fax: | | | | | | | [phone] | +--------+--------+ + + + + Encounter Details +--------+---------+ + + + | Date | Type | Department | Care Team | Description | +--------+---------+ + + + | 08/28/ | Office | Digestive Health | Chris Padgett, | Epigastric Pain | | 2008 | Visit | [place] [address] | [address] | (Primary Dx); Status | | | | Ave Mailcode: CH4S | [facility] [address] | Post Bariatric | | | | Center for [facility] | [place], [place] | Surgery | | | | and Healing, | [address] | | | | | | [phone] | | | | | [place], [place] | | | | | | [address] | | | | | | [phone] | | | +--------+---------+ + + + [...] Performed At | + + + | 122939 Estimated GFR > 60 mL/min/1.73 sq m if non- | [facility] | | [place] 180772 Estimated GFR > 60 mL/min/1.73 sq m if | DEPARTMENT OF | | [place] GFR is estimated using the MDRD equation [...] | [facility] | [address] | [place] [address] | | | PATHOLOGY | [address] | | | + + + + + | [facility] | [address] | [place] [address] | | | PATHOLOGY | [address] | | | + + + + + documented in this encounter Visit Diagnoses + + | Diagnosis | + + | Epigastric pain - Primary Abdominal pain, epigastric | + + | Status post bariatric surgery Bariatric surgery status | + + documented in this encounter"
--- OUTSIDE RECORDS SUMMARY | ~2019-12-13 | XMS | Encounter Summary ---
Demographics + + + | Address | [address] | | | [place] [address] | + + + | Home Phone [...] Providers + +------+ + | Care Manager Relocation Name | Role | Phone | + [...] [address] | | | | | [facility] | [address] [place], | | | | | [address] | [place] [address] | | | | | Mailcode: CH15P | | | | | | [facility] | | | | | | and Healing, | | | | | | Building | | | | | | Floor [place], [place] | | | | | | [address] | | | | | | [phone] | | | +--------+ + + + [...]
--- OUTSIDE RECORDS SUMMARY | ~2019-12-13 | XMS | Encounter Summary ---
Demographics + + + | Address | [address] | | | [place] [address] | + + + | Home Phone [...] Providers + +------+ + | Care Nurse Practical Name | Role | Phone | + [...] Mychal Kovacs | | | | | [facility] | [place], [place] | | | | | [address] | [address] | | | | | [address] | [phone] | | | | | [facility] | | | | | | Physician's | | | | | | Pavilion [place], | | | | | | [place] [address] | | | | | | [phone] | | | +--------+ + + + [...]
--- OUTSIDE RECORDS SUMMARY | ~2019-12-13 | XMS | Encounter Summary ---
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 Diagnosis: [place] I: 1. (296.32) Major depressive disorder, recurrent, moderate. 2. (309.24) Adjustment disorder with anxiety. 3. 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 [place] II: Deferred [place] III: abdominal pain, migraine headache, low back pain. [place] IV: low finances [place] V: GAF 55-60 Plan: Return in 2 weeks. Check niece's visit, pacing, relaxation, activity, distraction. Contin ue cognitive/behavioral therapy. Total time spent with patient was approximately 45 minutes. LUKASZ CHARLES PHD [facility] [address] [facility] [place] [facility], [address]th [place] [address] documented in this encount er Plan of [...] ([facility]) Left Knee | | | | [...]
--- OUTSIDE RECORDS SUMMARY | ~2019-12-13 | XMS | Encounter Summary ---
Demographics + + + | Address | [address] | | | [place] [address] | + + + | Home Phone [...] Providers + +------+ + | Care Cook Cold Meat Name | Role | Phone | [...] | | | | Clinical Nutrition | [place], [place] | | | | | [address] | [address] | | | | | Loop Mailcode: OPC5 | [phone] | | | | | Outpatient Clinic | | | | | | [facility] | | | | | | [place] [address] | | | | | | [phone] | | | +--------+ + + + [...] + + + | [facility] | [address] | [place] [address] | | | LABORATORY | | | [...] | uIU/ml | | | | | [facility] | | | | | | Laboratories. | | | | + + + + + + + + | Specimen | + + | | + + + + + + + | Performing | Address | City/State/Zipcode | Phone Number | | Organization | | | | + + + + + | [facility] | [address] | [place] [address] | | | LABORATORY | | | [...] + + + + | [facility] | [address] | [place] [address] | | | LABORATORY | | | [...] | | | SERUM | performed by [facility] | | | | | | [facility] | | | | | | Laboratories. | | | | + + + + + + + + | Specimen | + + | | + + + + + + + | Performing | Address | City/State/Zipcode | Phone Number | | Organization | | | | + + + + + | [facility] | [address] | [place] [address] | | | LABORATORY | | | [...] + + | [facility] | [address] | [place] [address] | | | PATHOLOGY | [address] | | | + + + + + | [facility] | [address] | [place] [address] | | | PATHOLOGY | [address] | | | + + + + + documented in this encounter Visit Diagnoses Not on filedocumented in this encounter"
--- OUTSIDE RECORDS SUMMARY | ~2019-12-13 | XMS | Encounter Summary ---
Demographics + + + | Address | [address] | | | [place] [address] | + + + | Home Phone [...] Providers + +------+ + | Care Glass Products Inspector Name | Role | Phone | [...] Medication Refill | | | | [place], | [address] [place] | | | | | [place] [address] | [place] [address] | | | | | [phone] | [phone] | | | | | | | [...] office and [facility]. Patient would like to have the [...] evening Quantity Remainin Pharmacy: [facility] Call/Mail/Rehab Liaison/Fax: Fax Date of Last Refill: 05/14/2019 Date [...] | [facility] [address] | | | | | | [facility] | | | | | | [place] [address] | | | | | | [phone] | | | | | | | | +--------+---------+ + + + | 12/20/ | Office | Otolaryngology | Ulysses Genao MD | | | 2019 | Visit | | [address] | | | | | | [place] | | | | | | [place] [address] | | | | | | [phone] | | | | | | | | +--------+---------+ + + + | 02/15/ | Office | Internal Medicine | Alanis, | | | 2019 | Visit | | MD Petrona | | | | | | [address] [place] | | | | | | [place] [address] | | | | | | [phone] | | | | | | | | +--------+---------+ + + + documented as of this encounter Visit Diagnoses Not on filedocumented in this encounter"
--- OUTSIDE RECORDS SUMMARY | ~2019-12-13 | XMS | Encounter Summary ---
Demographics + + + | Address | [address] | | | [place] [address] | + + + | Home Phone [...] Providers + +------+ + | Care Fuel Pilot Engineer Name | Role | Phone | + +------+ + | Petrona Thapa | PCP | | | MD | | | + +------+ + Encounter Details +--------+ + + + + | Date | Type | Department | Care Team | Description | +--------+ + + + + | 12/04/ | Orders Only | [facility] | Alanis, | | | 2019 | | MEDICINE [address] | MD Petrona | | | | | [place], | [address] [facility] | | | | | [place] [address] | [place] [address] | | | | | [phone] | [phone] | | | | | | | [...] | | | | | [place] [address] | | | | | | [phone] | | | | | | | | +--------+---------+ + + + | 12/20/ | Office | Otolaryngology | Ulysses Genao MD | | | 2019 | Visit | | [address] | | | | | | [address] [place] | | | | | | [place] [address] | | | | | | [phone] | | | | | | | | +--------+---------+ + + + | 02/15/ | Office | Internal Medicine | Alanis, | | | 2019 | Visit | | MD Petrona | | | | | | [address] [place] | | | | | | [place] [address] | | | | | | [phone] | | | | | | | | +--------+---------+ + + + documented as of this encounter Visit Diagnoses Not on filedocumented in this encounter"
--- OUTSIDE RECORDS SUMMARY | ~2019-12-13 | XMS | Encounter Summary ---
Demographics + + + | Address | [address] | | | [place] [address] | + + + | Home Phone [...] Providers + +------+ + | Care Lumber Estimator Name | Role | Phone | [...] 10/28/ | Office | [facility] Center at [facility] | Lukasz Charles, | Major Depressive | | 2006 | Visit | [address] | PhD [address] | Disorder, Recurrent | | | | Mailcode: CH15P | [place], [place] | Episode, Moderate | | | | [facility] | [address] | ([facility]); Neck Pain; | | | | and Healing, | [phone] | Herniated Lumbar | | | | Building | | Intervertebral Disc | | | | Floor [place], [place] | | L4-5; 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 She has been doing cross stitch [...] She has using good self-care skills. Diagnosis: [place] I: 1. (296.32) Major depressive disorder, recurrent, moderate. 2. (309.24) Adjustment disorder with anxiety. 3. 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 May II: Deferred May III: abdominal pain, migraine headache, low back pain. May IV: low finances May V: GAF 50 Plan: Return in 2 weeks. Check preparation for move and for niece's visit, results of orthopedic visit. Check pacing, relaxation, activity, distraction. Continue cognitive/behavioral the rapy. Total time spent with patient was approximately 45 minutes. LUKASZ CHARLES [facility] [address] [facility], 4th [place] [address] documented in this encount er Plan of [...]
--- OUTSIDE RECORDS SUMMARY | ~2019-12-13 | XMS | Encounter Summary ---
Demographics + + + | Address | [address] | | | [place] [address] | + + + | Home Phone [...] Providers + +------+ + | Care Seed Potato Cutter Name | Role | Phone | + +------+ + | Petrona Thapa | PCP | | | MD | | | + +------+ + Encounter Details +--------+ + + + + | Date | Type | Department | Care Team | Description | +--------+ + + + + | 12/18/ | Hospital | [facility] | Luther Brito MD | Abdominal pain, | | 2018 | Encounter | [facility] OP | [address] | unspecified | | | | [address] | [place], [place] | abdominal location; | | | | [place], [place] | [address] | Gastroesophageal | | | | [address] | [phone] | reflux disease, | | | | [phone] | | esophagitis presence | | | [...] You can't be awakened Date Last Reviewed: 04/01/201619990796-9245 [employer]. [address] [place] [address], [place] [address]. All righ ts reserved. This information is [...] (See Comments) Confused and questionable for seizures Jxednfbkcp-Rytv-Chncrosq Hives and Rash Cephalexin Hives Ciprofloxacin Hives [...] Electronically Signed by: Luther Brito MD 12/18/2017 [facility] Portions of this chart may have been created with Wrapp voice recognition software. Occasi onal wrong-word or [...] Endoscopy Patient: Belinda Rodriguez : 1960 Acct: [id number] Exam Date: Monday, December 18, 2017 Doctor: [...] If unable to reach your physician, call [facility] Emergency Department at [address] Your doctor [...] Exams Patient: Belinda Rodriguez : 1960 Acct: [id number] Exam Date: Monday, December 18, 2017 Doctor: [...] If unable to reach your physician, call [facility] Emergency Department at [address] Your doctor [...] | | | | | [place] [address] | | | | | | [phone] | | | | | | | | +--------+---------+ + + + | 12/20/ | Office | Otolaryngology | Ulysses Genao MD | | | 2019 | Visit | | [address] | | | | | | [address] [place] | | | | | | [place] [address] | | | | | | [phone] | | | | | | | | +--------+---------+ + + + | 02/15/ | Office | Internal Medicine | Alanis, | | | 2019 | Visit | | MD [place] | | | | | | [address] [place] | | | | | | [place] [address] | | | | | | [phone] | | | | | | | [...] 12/18/2017 | PROVATION | | 10:49 AMMRN: [id number] #: [id number] of : | | | 9Admit Type: AmbulatoryAge: 57Room: [facility] 01Gender: FemaleNote | | | Status: FinalizedAttending MD: Luther Brito , [facility]cedure: | | | Upper GI endoscopyIndications: Generalized [...] the anesthesiologist and the | | | application support technician in the pre-procedure area in the [...] | appearing mucosa. This was traversed. The redkw-mr-nafxlnt limb | | | was characterized by healthy appearing mucosa. The | | | jejunojejunal anastomosis was characterized by healthy | | | appearing mucosa. The klbigfub-fp-vqqlfuf limb was not examined | | | [...] AMScope Out: | | | 11:08:34 AM [facility], [address] | | | , [place] [address] | | | - Return to GI [...] | | [facility], [address] [facility], [place], [place] | | | [address] | | + + -+ + +---------+ [...] 12/18/2017 | PROVATION | | 10:43 AMMRN: [id number] #: [id number] of : | | | 9Admit Type: AmbulatoryAge: 57Room: [facility] 01Gender: FemaleNote | | | Status: FinalizedAttending MD: uLther Brito , [facility]STrocedure: | | | ColonoscopyIndications: Generalized abdominal pain, [...] the anesthesiologist and the | | | application support technician in the pre-procedure area in the [...] Scope In: 11:12:28 AMScope Out: 11:56:57 AM Motley | | | [facility], [facility] [place] [address] | | | [phone] | | | - Await pathology results. [...] | | [facility], [address] [facility], [place], [place] | | | [address] | | + + -+ + +---------+ [...] for specific diagnostic abnormality. | | | JVR:[facility]:C2NR GROSS DESCRIPTION: Received in five parts. [...] | | slide preparation were performed by [employer], [facility] [address], [place] [address] (Bioengineer: Stephen Jacobson, | | | Joanna MCNEIL#: [id number]). Professional interpretation was performed | | | by [employer], [facility], [address], [place] [address] (Bioengineer: Stephen | | | Joanna Jacobson; EWA#: [id number]). Diagnostician: Stephen Khan | | | Kavon [...]
--- OUTSIDE RECORDS SUMMARY | ~2019-12-13 | XMS | Encounter Summary ---
Demographics + + + | Address | [address] | | | [place] [address] | + + + | Home Phone [...] Providers + +------+ + | Care Stave Log Cut Off Saw Operator Name | Role [...] | | | [facility] | [place], [place] | | | | | [address] | [address] | | | | | [address] | [phone] | | | | | [facility] | | | | | | Physician's | | | | | | Pavilion [place], | | | | | | [place] [address] | | | | | | [phone] | | | +--------+ + + + [...]
--- OUTSIDE RECORDS SUMMARY | ~2019-12-13 | XMS | Encounter Summary ---
Demographics + + + | Address | [address] | | | [place] [address] | + + + | Home Phone [...] + +------+ + | Care Physical Chemistry Professor Name | Role | Phone | [...]
--- OUTSIDE RECORDS SUMMARY | ~2019-12-13 | XMS | Encounter Summary ---
Demographics + + + | Address | [address] | | | [place] [address] | + + + | Home Phone [...] Team Providers + +------+ + | Care Septic Tank Installer Name | Role | Phone | [...] + + | 07/24/ | Office | [facility] Comprehensive | Delfina Lambert, | Chronic Bilateral | | 2008 | Visit | Pain Center at | ANP | Shoulder Pain | | | | [facility] | | (Primary Dx); Spinal | | | | [address] | | Fusion Lumbar spine | | | | Mailcode: CH15P | | ; LBP (Low Back | | | | [facility] | | Pain); Osteopenia; | | | | and Healing, | | Fibromyalgia | | | | Building | | syndrome 729.1; | | | | Floor [place], [place] | | Major Depressive | | | | [address] | | Disorder, Recurrent | | | | [phone] | | Episode, Moderate | | | [...] is a 48 y.o. female [facility] Comprehensive Pain [...] drawing has be completed, which I reviewed. [facility] Brief Pain Inventory: (ten= worst [...] 300 mg) by oral route once daily qqvwkvxvuh-ekvnmccnsthlz-smgrrili (FIORICET) 50-325-40 mg Oral Tablet take 2 [...] 278 01/18 Paniculectomy Hx lumbar fusion 05/2008 L1-H9lgrtgu with bone spur removals Family History Problem [...] plain x rays of bilateral shoulders, today [facility] building third floor, I reviewed the [...] COMPRE[facility] Mail code CH 4P [facility] [place] [facility] [address] [place] [address] Ailyn Bello - 02/2009 3:13 PM [...] | | + +---------+ + + | [facility] DEPARTMENT OF | | | | [...]
--- OUTSIDE RECORDS SUMMARY | ~2019-12-13 | XMS | Encounter Summary ---
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 Continue with Dublin 10/325 1 tablet three times per day [...] 72 hours on schedule 2. Continue with [place] 10/325 1 tablet three times per day as needed for increased pain wit h activity. 3. Continue with Trileptal 150mg, 1 tablet twice a day 4. Continue with PT and psychology as scheduled 5. Follow up with Delfina Molina in 4 weeks or sooner if needed. 6. Continue with orthopedic and neurology evaluations as scheduled DELFINA MOLINA [facility] Comprehensive Pain Center Mail code CH 4P [place] [facility] and [address] [address] Ty Omalley - 9:28 AM [...] Yes , Fentanyl patch documented in this [facility] Plan of Treatment Not on filedocumented [...]
--- OUTSIDE RECORDS SUMMARY | ~2019-12-13 | XMS | Encounter Summary ---
Demographics + + + | Address | [address] | | | [place] [address] | + + + | Home Phone [...] Providers + +------+ + | Care Surgical Clinical Reviewer Name | Role | Phone | [...] + + | 11/17/ | Office | [facility] | Emmy-Kamlesh, | Bilateral leg edema | | 2018 | Visit | MEDICINE [address] | MD [place] | (Primary Dx); Venous | | | | [address] [place], | [address] [facility] | insufficiency; | | | | [place] [address] | [place] [address] | Fatigue, unspecified | | | | [phone] | [phone] | type | | | | | [...] (See Comments) Confused and questionable for seizures Lmyarkfxjr-Qurd-Nixodade Cephalexin Hives Duloxetine Migraines and nausea Ketorolac Hives Morphine Swelling Ropinirole Hcl Hives Tramadol Hcl Nausea Only Eozxusztgf-Mmbp-Rciqcvio Hives and Rash Ciprofloxacin Hives and Rash [...] Note: Parts of this documentwere created using [employer] speech recognition software. As a r esult, there may be unintended word spelling errors. Every attempt was made to correct the dictation. Lisa Recinos CMA - 11/17/2017 10:45 AM PDTFormatting of this note might be different from the origi nal. Administrations This Visit cyanocobalamin (VITAMIN B-12) injection 1,000 mcg Admin Date 11/17/2017 Action Given Dose 1000 mcg Route Intramuscular Administered By aVlencia Govea CMA documented in this enc ounter Plan of Treatment +--------+---------+ + + + | Date | Type | Specialty | Care Team | Description | +--------+---------+ + + + | 12/20/ | Office | Audiology | Elisabet Munson MS | | 2019 | Visit | | [facility] [address] | | | | | | [place] | | | | | | [place] [address] | | | | | | [phone] | | | | | | | | +--------+---------+ + + + | 12/20/ | Office | Otolaryngology | Ulysses Genao MD | | | 2019 | Visit | | [address] | | | | | | [address] [place] | | | | | | [place] [address] | | | | | | [phone] | | | | | | | | +--------+---------+ + + + | 02/15/ | Office | Internal Medicine | Alanis, | | | 2019 | Visit | | MD [place] | | | | | | [address] [place] | | | | | | [place] [address] | | | | | | [phone] | | | | | | | [...] | [address] | [place] | [phone] | | [facility] | | [address] | | | - LABORATORY | | | | + + + + + Sedimentation Rate (11/17/2017 11:40 AM PDT) + +-------+ + + + | Component | Value | Ref Range | Performed | Pathologist | | | | | At | Signature | + +-------+ + + + | Erythrocyte | 10 | <30 mm/hr | [facility] | | | | | | [facility] | | | Sedimentati | | | [...] [address] | [place] | [phone] | | [facility] | | [address] | | | - LABORATORY | | [...] | third generation TSH | uIU/mL | [facility] | | | | test. | | [...] + | [facility] | [address] | [place] | [phone] | | [facility] | | [address] | | | - LABORATORY | | [...] 105 | 70 - 109 mg/dL | GILDAE | | | | [...] mL/min/1.73m2 | Yudy NATHAN | | | BELIZEAN | RATE,ESTIMATED | | MEDICAL | | | | mL/min/1.83i3Bbyw than | | CENTER - | | [...] | 9.1 | 8.3 - 10.5 | [facility] | | | | | mg/dL [...] | ine Ratio | | | STYudy NATHAN | | [...] + + | [facility] | [address] | [place] | [phone] | | [facility] | | [address] | | | - LABORATORY | | [...] | 0.00 | 0.00 - 0.10 | JEFF | | | Basophils | | K/Navjot | [facility] | | | | [...] [address] | [place] | [phone] | | [facility] | | [address] | | | - LABORATORY | | [...] | | | First dose on [facility] 10/15/17 at 1215 | | | [...]
--- OUTSIDE RECORDS SUMMARY | ~2019-12-13 | XMS | Encounter Summary ---
[...] Team Providers + +------+ + | Care Verification Lead Name | Role | Phone | + +------+ + | Pedrito Gutierrez MD | PCP | | + +------+ + Encounter Details +--------+ + + + + | Date | Type | Department | Care Team | Description | +--------+ + + + + | 12/26/ | Telephone | [facility] | Lukasz Ogden, | | | 2007 | | Pain Center at | PhD [address] | | | | | [facility] | [place], [place] | | | | | [address] | [address] | | | | | Mailcode: CH15P | [phone] | | | | | [facility] | | | | | | and [place], | | | | | | Building | | | | | | [place], [place] | | | | | | [address] | | | | | | [phone] | | | +--------+ + + + [...]
--- OUTSIDE RECORDS SUMMARY | ~2019-12-13 | XMS | Encounter Summary ---
Demographics + + + | Address | [address] | | | [place] [address] | + + + | Home Phone [...] Team Providers + +------+ + | Care Gambling Counsellor Name | Role | Phone | [...]
--- OUTSIDE RECORDS SUMMARY | ~2019-12-13 | XMS | Encounter Summary ---
Demographics + + + | Address | [address] | | | [place] [address] | + + + | Home Phone [...] Providers + +------+ + | Care Sports Therapist Name | Role | Phone | [...] | | | | | | Mailcode: [facility] | | | | | | | [facility] Center | | | | | | | for Health | | | | | | | and Healing, | | | | | | | Building [address] | | | | | | | [facility] [place] | | | | | | | [address] | | | | | | | Phone: | | | | | | | [phone] | | | | | | | Fax: | | | | | | | [phone] | +--------+--------+ + + + + Encounter Details +--------+ + + + + | Date | Type | Department | Care Team | Description | +--------+ + + + + | 09/14/ | Hospital | [facility] PROCEDURE | Olivia, | | | 2008 | Encounter | [address] | MD Pedrito | | | | | Bethanie Mailcode: [facility] | | | | | | [facility] for | | | | | | Health and Healing, | | | | | | [address] | | | | | | [facility] [place] | | | | | | [address] | | | | | | [phone] | | | +--------+ + + + [...] Discharge Instructions Instructions Marleen Hogan - 09/14/2008 [facility] [address] [place] [address] Toll Free ext: [phone] Home Care Instructions after EGD (Upper Endoscopy) [...] hours, or on weekends and holidays Hospital Dish Maker and have the GI doctor compression molding machine tender paged. The provider who performed your procedure [...] Meehan is a 48 y.o. female MR# [id number] presents today for an EG D to [...] 01/22/2006 Tramadol 01/22/2006 Morphine Clarithromycin Hives 06/28/2007 Qsoyjtu-wkrskkjbpu-yaa-caff 08/28/2008 See procedure note 09/14/2008 documented in [...]
--- OUTSIDE RECORDS SUMMARY | ~2019-12-13 | XMS | Encounter Summary ---
Demographics + + + | Address | [address] | | | [place] [address] | + + + | Home Phone [...] Providers + +------+ + | Care Monitor Tech Name | Role | Phone | [...] | | right | [address] | [address] Phone: | | | | | supraspinatu | [place], | [phone] | | | | | s tendon, | [place] | Fax: | | | | | initial | [address] | [phone] | | | | | encounter | Phone: | | | | | | | [phone] | | | | | | | Fax: | | | | | | | [phone] | | +--------+ + + + + [...] Acute pain | Emmy-Tajt | [address] | | | | | of right | i, | [place], | | | | | shoulder | John | [place] | | | | | Procedures | , MD [address] | [address] | | | | | MRI Shoulder | [address] | Phone: | | | | | Right wo | [place], | [phone] | | | | | Contrast | [place] | Fax: | | | | | | [address] | [phone] | | | | | | Phone: | | | | | | | [phone] | | | | | | | Fax: | | | | | | | [phone] | | +--------+--------+ + + + + [...] + + | 01/15/ | Office | [facility] | Alanis, | Acute pain of right | | 2017 | Visit | MEDICINE [address] | MD John | shoulder (Primary | | | | [address] [place], | [address] [facility] | Dx); Chronic | | | | [place] [address] | [place] [address] | diarrhea; Fatty | | | | [phone] | [phone] | liver; S/P bariatric | | | [...] Procedure: COLONOSCOPY; Surgeon: Luther Brito MD; Location: [facility] MEDICAL PROCEDURE UNIT DILATION AND CURETTAGE OF UTERUS ELBOW SURGERY FINGER TRIGGER RELEASE 2002 FINGER TRIGGER RELEASE 2010 GASTRIC BYPASS SURGERY 2004 HYSTERECTOMY 05/14/1980 JOINT REPLACEMENT Bilateral 2006,2008 KNEE ARTHROSCOPY 2005 LAPAROSCOPY 01/27/2015 LAPAROTOMY 2008 ROTATOR CUFF REPAIR 2005 SPINE SURGERY TONSILLECTOMY 1964 UPPER GASTROINTESTINAL ENDOSCOPY N/A 12/18/2017 Procedure: EGD; Surgeon: Luther Brito MD; Location: [facility] MEDICAL PROCEDURE UNIT CURRENT MEDICATIONS Current [...] (See Comments) Confused and questionable for seizures Leotexkznf-Hlpc-Irxkwyqn Hives and Rash Cephalexin Hives Ciprofloxacin Hives [...] Note: Parts of this documentwere created using [employer]Pace speech recognition software. As a r esult, [...] | | | | | [place] [address] | | | | | | [phone] | | | | | | | | +--------+---------+ + + + | 12/20/ | Office | Otolaryngology | Ulysses Genao MD | | | 2019 | Visit | | [address] | | | | | | [address] [place] | | | | | | [place] [address] | | | | | | [phone] | | | | | | | | +--------+---------+ + + + | 02/15/ | Office | Internal Medicine | Alanis, | | | 2019 | Visit | | MD John | | | | | | [address] [place] | | | | | | [place] [address] | | | | | | [phone] | | | | | | | [...] + + | Tawanda, Rad Results In 02/17/2018 2:47 PM PDT | [...]
--- OUTSIDE RECORDS SUMMARY | ~2019-12-13 | XMS | Encounter Summary ---
Demographics + + + | Address | [address] | | | [place] [address] | + + + | Home Phone [...] Providers + +------+ + | Care Service Employee Name | Role | Phone | [...] | Visit | [facility] [address] | DYNAMOMETER REPAIRER | syndrome [address] | | | | [address] | | (Primary Dx); | | | | Physician's | | Fibromyalgia | | | | Pavilion, 4th Floor | | | | | | [place], [place] | | | | | | [address] | | | | | | [phone] | | | +--------+---------+ + + + [...] + + +--------+ + + | TX INJECT TRIGGER | Procedures | Routin | [...]
--- OUTSIDE RECORDS SUMMARY | ~2019-12-13 | XMS | Encounter Summary ---
[...] Providers + +------+ + | Care Dispatcher Service Or Work Name | Role | Phone | [...] | | | | FAMILY | Rd [place], | | | | | | MEDICINE | [place] | | | | | | [address] | [address] | | | | | | [place] | Phone: | | | | | | [place], | [phone] | | | | | | [place] [address] | Fax: | | | | | | Phone: | [phone] | | | | | | [phone] | | | | | | | Fax: | | | | | | | [phone] | | +--------+--------+ + + + + [...] | (Primary Dx) | | | | [place] for [facility] | [place], [place] | | | | | and Healing, | [address] | | | | | [facility] | [phone] | | | | | Floor [place], [place] | | | | | | [address] | | | | | | [phone] | | | +--------+---------+ + + + [...] surgery. She is being followe d with [facility] providers for metabolic syndrome and hypothyroidism - Dr. Meeks, emotional issue s - Dr. Lukasz Ogden, and her PCP in [place]. She has sx of stress urinary incontinence [...] treated. She would like a urology or DESIGN QUALITY ENGINEER referral as appropriate. Labs ordered. See in [...] [address] | | | | | | [place] [address] | | | | | | [phone] | | | | | Sincere [...] [facility] | [address] | [place], [place] | | | [facility] | | [address] | | + + + + + [...] | + + + + + | [facility] | [address] | [place] [address] | | | LABORATORY | | | [...] [facility] ([facility]) | | | [facility] [place] [address] | | | [place] [address] | | + + + + + + + + | Performing | Address | City/State/Zipcode | Phone Number | | Organization | | | | + + + + + | [facility] | [address] | [place] [address] | | | LABORATORY | | | [...] [facility] ([facility]) | | | [facility] [place] [address] | | | [place] [address] | | + + + + + + + + | Performing | Address | City/State/Zipcode | Phone Number | | Organization | | | | + + + + + | [facility] | [address] | [place] [address] | | | LABORATORY | | | [...] Performed At | + + + | [address] Estimated GFR > 60 mL/min/1.73 sq m if non- | [facility] | | [address] Estimated GFR > 60 mL/min/1.73 sq m [...] [facility] DEPARTMENT OF | [address] [facility] | [place] [address] | | | PATHOLOGY | [address] | | | + + + + + | [facility] DEPARTMENT OF | [address] [facility] | [place] [address] | | | PATHOLOGY | [address] [...] + + | [facility] | [address] [facility] | [place] [address] | | | PATHOLOGY | [address] | | | + + + + + | [facility] | [address] [facility] | [place] [address] | | | PATHOLOGY | [address] | | | + + + + + documented in this encounter Visit Diagnoses + + | Diagnosis | + + | Status post bariatric surgery - Primary Bariatric surgery status | + + documented in this encounter"
--- OUTSIDE RECORDS SUMMARY | ~2019-12-13 | XMS | Encounter Summary ---
Demographics + + + | Address | [address] | | | [place] [address] | + + + | Home Phone [...] Team Providers + +------+ + | Care Transferrer Name | Role | Phone | + [...] | phalanx of | [address] | [address] | | | | | left great | [place], | Phone: | | | | | toe, initial | [place] | [phone] | | | | | encounter | [address] | Fax: | | | | | | Phone: | [phone] | | | | | | [phone] | | | | | | | Fax: | | | | | | | [phone] | | + + + + + [...] + + | 11/14/ | Telephone | [facility] | Alanis, | Results, Imaging | | 2019 | | MEDICINE [address] | MD [place] | | | | | [place], | [address] [place] | | | | | [place] [address] | [place] [address] | | | | | [phone] | [phone] | | | | | | | [...] results. Requesting referral to Dr. Strickland in [place], [place]. Already seeing him for her leg.El [...] | | | | | [place] [address] | | | | | | [phone] | | | | | | | | +--------+---------+ + + + | 12/20/ | Office | Otolaryngology | Ulysses Genao MD | | | 2019 | Visit | | [address] | | | | | | [address] [place] | | | | | | [place] [address] | | | | | | [phone] | | | | | | | | +--------+---------+ + + + | 02/15/ | Office | Internal Medicine | Alanis, | | | 2019 | Visit | | MD [place] | | | | | | [address] | | | | | | [place] [address] | | | | | | [phone] | | | | | | | [...]
--- OUTSIDE RECORDS SUMMARY | ~2019-12-13 | XMS | Encounter Summary ---
Demographics + + + | Address | [address] | | | [place] [address] | + + + | Home Phone [...] Providers + +------+ + | Care Consumer Studies Professor Name | Role | Phone | [...] + | 06/30/ | Refill | [facility] | Alanis, | Medication Refill | | 2017 | | MEDICINE [address] | MD Petrona | | | | | [place], | [address] [facility] | | | | | [place] [address] | [place] [address] | | | | | [phone] | [phone] | | | | | | | [...] | | | | | [place] [address] | | | | | | [phone] | | | | | | | | +--------+---------+ + + + | 12/20/ | Office | Otolaryngology | Ulysses Genao MD | | | 2019 | Visit | | [address] | | | | | | [place] | | | | | | [place] [address] | | | | | | [phone] | | | | | | | | +--------+---------+ + + + | 02/15/ | Office | Internal Medicine | Alanis, | | | 2019 | Visit | | MD Petrona | | | | | | [address] [place] | | | | | | [place] [address] | | | | | | [phone] | | | | | | | | +--------+---------+ + + + documented as of this encounter Visit Diagnoses Not on filedocumented in this encounter"
--- OUTSIDE RECORDS SUMMARY | ~2019-12-13 | XMS | Encounter Summary ---
Demographics + + + | Address | [address] | | | [place] [address] | + + + | Home Phone [...] Providers + +------+ + | Care Payroll Analyst Name | Role | Phone | [...] | [facility] | [address] | | | | n | [place] Mailcode: [id number] | [place], [place] | | | | | [place], [place] | [address] | | | | | [address] | [phone] | | | | | [phone] | | | +--------+ + + + [...] | | | | | performed by [facility] | pg/mL | | | | | [facility]. | | | | + + + + + + + + | Specimen | + + | | + + + + + + + | Performing | Address | City/State/Zipcode | Phone Number | | Organization | | | | + + + + + | [facility] | [address] | [place] [address] | | | LABORATORY | | | [...] at: | | | | | | [employer] | | | | | | [facility] | | | | | | [address] | | | | | | [email or web address] | | | | + + + + + + + + | Specimen | + + | | + + + + + + + | Performing | Address | City/State/Zipcode | Phone Number | | Organization | | | | + + + + + | [facility] | [address] | [place], [place] | | | [facility] | | [address] | | + + + + + [...] Iron and TIBC, Serum Test performed by [facility] | | | [facility] [employer]. | | + + + + + + + + | Performing | Address | City/State/Zipcode | Phone Number | | Organization | | | | + + + + + | [facility] | [address] | [place] [address] | | | LABORATORY | | | [...] | B12, SERUM | Test performed by [facility] | | | | | | [place] [...] [facility] | [address] | [place] [address] | | | LABORATORY | | | [...] [facility] DEPARTMENT OF | [address] | [place] [address] | | | PATHOLOGY | [address] | | | + + + + + | [place] DEPARTMENT OF | [address] | [place] [address] | | | PATHOLOGY | [address] [...] [facility] DE[facility] | [address] | [place] [address] | | | PATHOLOGY | [address] | | | + + + + + | [facility] | [facility] [address] | [place] [address] | | | PATHOLOGY | [address] [...] Performed At | + + + | [id number] Estimated GFR > 60 mL/min/1.73 sq m if non- | [facility] | | [id number] Estimated GFR > 60 mL/min/1.73 sq m [...] + + | [facility] | [address] | [place] [address] | | | PATHOLOGY | [address] | | | + + + + + | [facility] | [address] | [place] [address] | | | PATHOLOGY | [address] | | | + + + + + documented in this encounter Visit Diagnoses Not on filedocumented in this encounter"
--- OUTSIDE RECORDS SUMMARY | ~2019-12-13 | XMS | Encounter Summary ---
[...] Providers + +------+ + | Care Line Up Machine Operator Name | Role | [...] [id number] | | | | | | [place], [place] | | | | | | [address] | | | | | | [phone] | | | +--------+--------+ + + + [...]
--- OUTSIDE RECORDS SUMMARY | ~2019-12-13 | XMS | Encounter Summary ---
Demographics + + + | Address | [address] | | | [place] [address] | + + + | Home Phone [...] Providers + +------+ + | Care Intake Assessor Name | Role | Phone | [...] + + | 04/25/ | Telephone | [facility] INTERNAL | Alanis, | Paperwork; Pre-Op | | 2018 | | MEDICINE [facility] [address] | MD Petrona | | | | | [place], | [place] | | | | | [place] [address] | [place] [address] | | | | | [phone] | [phone] | | | | | | | [...] Rasmussen - 04/25/2019 9:16 AM PSTTanya with [facility] norm colin stating that they faxed [...] | | | | | [place] [address] | | | | | | [phone] | | | | | | | | +--------+---------+ + + + | 12/20/ | Office | Otolaryngology | Ulysses Genao MD | | | 2019 | Visit | | [address] | | | | | | [address] [place] | | | | | | [place] [address] | | | | | | [phone] | | | | | | | | +--------+---------+ + + + | 02/15/ | Office | Internal Medicine | Alanis, | | | 2019 | Visit | | MD Petrona | | | | | | [address] [place] | | | | | | [place] [address] | | | | | | [phone] | | | | | | | | +--------+---------+ + + + documented as of this encounter Visit Diagnoses Not on filedocumented in this encounter"
--- OUTSIDE RECORDS SUMMARY | ~2019-12-13 | XMS | Encounter Summary ---
Demographics + + + | Address | [address] | | | [place] [address] | + + + | Home Phone [...] Providers + +------+ + | Care Receiving And Processing Supervisor Name | Role | Phone [...] [address] | | | | | [facility] | [place], [place] | | | | | [address] | [address] | | | | | [address] | [phone] | | | | | [facility] | | | | | | Physician's | | | | | | Pavilion [place], | | | | | | [place] [address] | | | | | | [phone] | | | +--------+--------+ + + + [...]
--- OUTSIDE RECORDS SUMMARY | ~2019-12-13 | XMS | Encounter Summary ---
Demographics + + + | Address | [address] | | | [place] [address] | + + + | Home Phone [...] + +------+ + | Care Manager Of Case Name | Role | Phone | [...] as of this encounter Progress Notes Interface, Furniture Upholsterer Apprentice In - 01/12/2005 10:09 AM PDT [id number] [facility] Date: 12/12/2004 Clinic: Endocrinology PHONE CONTACT NOTE The patient called me today after having surgery last week here at [facility]. Her concern was the development of 2 [...] cushion which I have ordered today through [email or web address], phone #[phone] and fax #[phone]. Today, the patient will monitor the decubiti closely and will be in touch with myself and her other physician depending on the progress. She also still has [address], which may be removed in one or two weeks when she returns to the Surgery Clinic at [facility]. Beto Meeks M.D. PD / HS [id number] / [id number] / [id number] / [id number] cc: Chris Padgett M.D. documented i n this encounter Plan of Treatment Not on filedocumented as of this encounter Visit Diagnoses Not on filedocumented in this encounter"
--- OUTSIDE RECORDS SUMMARY | ~2019-12-13 | XMS | Encounter Summary ---
Demographics + + + | Address | [address] | | | [place] [address] | + + + | Home Phone [...] Providers + +------+ + | Care Journeyman Operator Assistant Name | Role | Phone [...] | | | [facility] | [place], [place] | | | | | [address] | [address] | | | | | [address] | [phone] | | | | | Physician's | | | | | | Pavilion, [facility] floor | | | | | | [place], [place] | | | | | | [address] | | | | | | [phone] | | | +--------+ + + + [...] | | | | | performed at [facility] | | | | | | [facility] | | | | | | Laboratory | | | | + + + + + + + + | Specimen | + + | | + + + + + + + | Performing | Address | City/State/Zipcode | Phone Number | | Organization | | | | + + + + + | [facility] | [address] | [place] [address] | | | LABORATORY | | | [...] | + + + + + | [facility] | [address] | [place] [address] | | | LABORATORY | | | [...] | [facility] | | | | | [facility] [...] + + + | [facility] | [address] | [place] [address] | | | LABORATORY | | | [...] | | | SERUM | performed by [facility] | | | | | | [facility] [...] | + + + + + | [facility] | [address] | [place] [address] | | | LABORATORY | | | [...] [address] [facility] | [place] [address] | | | PATHOLOGY | [address] | | | + + + + + | [place] DEPARTMENT OF | [address] [facility] | [place] [address] | | | PATHOLOGY | [address] [...] + + + + + | [facility] | [facility] | [place] [address] | | | PATHOLOGY | [address] | | | + + + + + | [facility] | [facility] | [place] [address] | | | PATHOLOGY | [address] | | | + + + + + documented in this encounter Visit Diagnoses Not on filedocumented in this encounter"
--- OUTSIDE RECORDS SUMMARY | ~2019-12-13 | XMS | Encounter Summary ---
Demographics + + + | Address | [address] | | | [place] [address] | + + + | Home Phone [...] Team Providers + +------+ + | Care Confectionery Drops Machine Operator Name | Role | Phone [...] | | | | [facility] | [place], [place] | | | | | [address] | [address] | | | | | [place], [place] | [phone] | | | | | [address] | | | | | | [phone] | | | +--------+ + + + [...]
--- OUTSIDE RECORDS SUMMARY | ~2019-12-13 | XMS | Encounter Summary ---
Demographics + + + | Address | [address] | | | [place] [address] | + + + | Home Phone [...] Providers + +------+ + | Care Tube Dispatcher Name | Role | Phone | [...] | | | | Clinical Nutrition | [place], [place] | | | | | [address] | [address] | | | | | Loop Mailcode: OPC5 | [phone] | | | | | Outpatient Clinic | | | | | | [facility], | | | | | | [place] [address] | | | | | | [phone] | | | +--------+ + + + [...]
--- OUTSIDE RECORDS SUMMARY | ~2019-12-13 | XMS | Encounter Summary ---
Demographics + + + | Address | [address] | | | [place] [address] | + + + | Home Phone [...] Providers + +------+ + | Care Asphalt Blender Name | Role | Phone | [...] | Procedures | [address] | Charles | | | | | CONSULT TO | [facility] | [address] | | | | | GI PROCEDURE | Rd | floor | | | | | UNIT: SM | [place], [place] | [place], [place] | | | | | [address] | [address] | [address] | | | | | [place] | Phone: | Phone: | | | | | ENDOSCOPY | [phone] | [phone] | | | | | | | Fax: | | | | | | | [phone] | +--------+--------+ + + + + Consultation [...] | | | | | Procedures | [facility] | [place], [place] | | | | | CONSULT TO | Rd | [address] | | | | | PAIN CENTER | [place], [place] | | | | | | | [address] | | | | | | | Phone: | | | | | | | [phone] | | +--------+--------+ + + + + Encounter Details +--------+---------+ + + + | Date | Type | Department | Care Team | Description | +--------+---------+ + + + | 04/07/ | Office | [facility] Division of | Carlos Arreola, | Iron Deficiency; | | 2005 | Visit | Gastroenterology/Hep | [address] | Chronic Abdominal | | | | atology [address] | [facility] | Pain | | | | [address] | [place] [address] | | | | | Mailcode: PV310 | [phone] | | | | | Physician's Pavilion | | | | | | [address] | | | | | | [place], [place] | | | | | | [address] | | | | | | [phone] | | | +--------+---------+ + + + [...] December reviewed and normal (past ed below). [facility] labs received and reviewed: neg O&P UPPER [...] HEPATIS NODES. Transcribed By: Armaan Rivera : [id number] : 1224 Approved By: CT ABDOMEN AND [...] HEPATIS NODES. Transcribed By: Armaan Mata : [id number] : 1224 Approved By: Carlos Benton - 3:59 PM PDTPt seen previously seen by sd for chronic pain and PK, returns to [...]
--- OUTSIDE RECORDS SUMMARY | ~2019-12-13 | XMS | Encounter Summary ---
Demographics + + + | Address | [address] | | | [place] [address] | + + + | Home Phone [...] + +------+ + | Care Director Of Research And Development Name | Role | Phone [...] + | 06/25/ | Refill | [facility] INTER[facility] | Alanis, | Medication Refill | | 2018 | | MEDICINE [address] | MD Petrona | | | | | [place], | [address] [facility] | | | | | [place] [address] | [place] [address] | | | | | [phone] | [phone] | | | | | | | [...] | | | | | [place] [address] | | | | | | [phone] | | | | | | | | +--------+---------+ + + + | 12/20/ | Office | Otolaryngology | Ulysses Genao MD | | | 2019 | Visit | | [address] | | | | | | [place] | | | | | | [place] [address] | | | | | | [phone] | | | | | | | | +--------+---------+ + + + | 02/15/ | Office | Internal Medicine | Alanis, | | | 2019 | Visit | | MD Petrona | | | | | | [address] [place] | | | | | | [place] [address] | | | | | | [phone] | | | | | | | | +--------+---------+ + + + documented as of this encounter Visit Diagnoses Not on filedocumented in this encounter"
--- OUTSIDE RECORDS SUMMARY | ~2019-12-13 | XMS | Encounter Summary ---
Demographics + + + | Address | [address] | | | [place] [address] | + + + | Home Phone [...] Team Providers + +------+ + | Care Obstetrics Specialist Name | Role | Phone | [...] as of this encounter Progress Notes Interface, Sheet Taker In - 01/12/2005 10:09 AM PDT [id number] [facility] Date: 12/11/2004 Clinic: Telephone [...] sent to Ms. Meehan' home address at [facility] [address] [address]. The address was confirmed with Ms. Meehan prior to sending. Ms. Meehan has a followup appointment in Dr. Padgett's clinic on December 19, 2004. Nathalia Richard R.N., B.S.N. Liliya Kirkpatrick. / [id number] / [id number] / [id number] / Electronically signed by Nuris Chapman 12-20-2004 05:05:06 PM docushazia i n this encounter Plan of Treatment Not on filedocumented as of this encounter Visit Diagnoses Not on filedocumented in this encounter"
--- OUTSIDE RECORDS SUMMARY | ~2019-12-13 | XMS | Encounter Summary ---
Demographics + + + | Address | [address] | | | [place] [address] | + + + | Home Phone [...] Providers + +------+ + | Care Anime Artist Name | Role | Phone | [...] + | 08/12/ | Refill | [facility] | Alanis, | Medication Refill | | 2017 | | MEDICINE [address] | MD Petrona | | | | | [place], | [address] | | | | | [place] [address] | [place] [address] | | | | | [phone] | [phone] | | | | | | | [...] | | | | | [place] [address] | | | | | | [phone] | | | | | | | | +--------+---------+ + + + | 12/20/ | Office | Otolaryngology | Ulysses Genao MD | | | 2019 | Visit | | [address] | | | | | | [place] | | | | | | [place] [address] | | | | | | [phone] | | | | | | | | +--------+---------+ + + + | 02/15/ | Office | Internal Medicine | Alanis, | | | 2019 | Visit | | MD [place] | | | | | | [address] [place] | | | | | | [place] [address] | | | | | | [phone] | | | | | | | | +--------+---------+ + + + documented as of this encounter Visit Diagnoses Not on filedocumented in this encounter"
--- OUTSIDE RECORDS SUMMARY | ~2019-12-13 | XMS | Encounter Summary ---
Demographics + + + | Address | [address] | | | [place] [address] | + + + | Home Phone [...] Providers + +------+ + | Care Personnel Representative Name | Role | Phone | [...] | | | back pain | [place], | [address] | | | | | with | [place] | Phone: | | | | | bilateral | [address] | [phone] | | | | | sciatica | Phone: | Fax: | | | | | Procedures | [phone] | [phone] | | | | | MRI Lumbar | Fax: | | | | | | Spine wo | [phone] | | | | | | Contrast [...] + + | 05/17/ | Office | [facility] INTERNAL | Emmy-Tacliffordti, | Lumbar | | 2018 | Visit | MEDICINE [address] | MD Petrona | radiculopathy, acute | | | | [address] [place], | [address] [facility] | (Primary Dx); Acute | | | | [place] [address] | [place] [address] | midline low back | | | | [phone] | [phone] | pain with bilateral | | | [...] Nonalcoholic hepatosteatosis Obesity Opioid dependence ([facility]) Orthostatic hypotension OLIVER (obstructive sleep apnea) Osteoarthritis, generalized Osteopenia Osteoporosis Peripheral neuropathy Rheumatoid arthritis ([facility]) Right arm pain 01/04/2015 RLS [...] (See Comments) Confused and questionable for seizures Snotdknzob-Chog-Psbjzqpv Hives and Rash Cephalexin Hives Ciprofloxacin Hives [...] Note: Parts of this documentwere created using [employer] speech recognition software. As a r [...] | | [facility] [address] | | | | | | [place] | | | | | | [place] [address] | | | | | | [phone] | | | | | | | | +--------+---------+ + + + | 12/20/ | Office | Otolaryngology | Ulysses Genao MD | | | 2019 | Visit | | [address] | | | | | | [address] [place] | | | | | | [place] [address] | | | | | | [phone] | | | | | | | | +--------+---------+ + + + | 02/15/ | Office | Internal Medicine | Alanis, | | | 2019 | Visit | | MD [place]rona | | | | | | [address] [place] | | | | | | [place] [address] | | | | | | [phone] | | | | | | | [...]
--- OUTSIDE RECORDS SUMMARY | ~2019-12-13 | XMS | Encounter Summary ---
Demographics + + + | Address | [address] | | | [place] [address] | + + + | Home Phone [...] Providers + +------+ + | Care Box Nailer Name | Role | Phone | + [...] + | 04/02/ | Refill | [facility] INTER[facility] | Alanis, | Medication Refill | | 2018 | | MEDICINE [address] | MD Petrona | | | | | [place], | [address] [facility] | | | | | [place] [address] | [place] [address] | | | | | [phone] | [phone] | | | | | | | [...] | | | | | [place] [address] | | | | | | [phone] | | | | | | | | +--------+---------+ + + + | 12/20/ | Office | Otolaryngology | Ulysses Genao MD | | | 2019 | Visit | | [address] | | | | | | [address] [place] | | | | | | [place] [address] | | | | | | [phone] | | | | | | | | +--------+---------+ + + + | 02/15/ | Office | Internal Medicine | Alanis, | | | 2019 | Visit | | MD [place] | | | | | | [address] [place] | | | | | | [place] [address] | | | | | | [phone] | | | | | | | | +--------+---------+ + + + documented as of this encounter Visit Diagnoses Not on filedocumented in this encounter"
--- OUTSIDE RECORDS SUMMARY | ~2019-12-13 | XMS | Encounter Summary ---
Demographics + + + | Address | [address] | | | [place] [address] | + + + | Home Phone [...] Team Providers + +------+ + | Care Reclamation Engineer Name | Role | Phone | [...] Pavilion | | | | | | [place], [place] | | | | | | [address] | | | | | | [phone] | | | +--------+ + + + [...]
--- OUTSIDE RECORDS SUMMARY | ~2019-12-13 | XMS | Encounter Summary ---
Demographics + + + | Address | [address] | | | [place] [address] [...] + +------+ + | Care Business Account Executive Name | Role | Phone | + +------+ + PCP | Unavailable | + +------+ + Encounter Details +--------+ + + + + | Date | Type | Department | Care Team | Description | +--------+ + + + + | 07/31/ | Hospital | [facility] | Ruben Tobias | | | 2005 | Encounter | MED CTR SLEEP | MD Raji [address] | | | | | [facility] [address] | [address] [facility] | | | | | [place], [place] | [place] [address] | | | | | [address] | [phone] | | | | | [phone] | | | +--------+ + + + [...] | | | | | [place] [address] | | | | | | [phone] | | | | | | | | +--------+---------+ + + + | 12/20/ | Office | Otolaryngology | Ulysses Genao MD | | | 2019 | Visit | | [address] | | | | | | [address] [place] | | | | | | [place] [address] | | | | | | [phone] | | | | | | | | +--------+---------+ + + + | 02/15/ | Office | Internal Medicine | Alanis, | | | 2019 | Visit | | MD [place] | | | | | | [address] [place] | | | | | | [place] [address] | | | | | | [phone] | | | | | | | | +--------+---------+ + + + documented as of this encounter Visit Diagnoses Not on filedocumented in this encounter"
--- OUTSIDE RECORDS SUMMARY | ~2019-12-13 | XMS | Encounter Summary ---
Demographics + + + | Address | [address] | | | [place] [address] | + + + | Home Phone [...] + +------+ + | Care Shop Mechanic Name | Role | Phone | [...] | ANP | | | | | [facility] | | | | | | [address] | | | | | | Mailcode: CH15P | | | | | | [place] [facility] | | | | | | and Healing, | | | | | | Building | | | | | | Floor [place], [place] | | | | | | [address] | | | | | | [phone] | | | +--------+ + + + [...]
--- OUTSIDE RECORDS SUMMARY | ~2019-12-13 | XMS | Encounter Summary ---
Demographics + + + | Address | [address] | | | [place] [address] | + + + | Home Phone [...] Providers + +------+ + | Care Account Manager Relief Name | Role | Phone | [...]
--- OUTSIDE RECORDS SUMMARY | ~2019-12-13 | XMS | Encounter Summary ---
Demographics + + + | Address | [address] | | | [place] [address] | + + + | Home Phone [...] Team Providers + +------+ + | Care Vaccines Solutions Specialist Name | Role | Phone | [...] | | | | | [place]ina [place], | | | | | | [place] [address] | | | +--------+ + + + [...] | Patient: BELINDA MEEHAN J Med Rec: [id number] Sex F Bdate: 1960 | | Date/Time Data | | Entered Into [facility] | | Anesth PostOp | | Surgery Date [id number] 12/09/04 10:30 | | [id number] 11/23/03 10:57 | | Anesthesiologist SYEDA ANDREWS [...]
--- OUTSIDE RECORDS SUMMARY | ~2019-12-13 | XMS | Encounter Summary ---
[...] Providers + +------+ + | Care Automotive Machinist Name | Role | Phone | [...] + + | 06/30/ | Telephone | [facility] | Alanis, | Other | | 2018 | | MEDICINE [address] | MD Petrona | | | | | MALIK [place], | [address] [facility] | | | | | [place] [address] | [place] [address] | | | | | [phone] | [phone] | | | | | | | [...] us of kidney, please fax order to [facility] elephone Encounter - Shalonda Mcdermott - 07/05/2018 12:12 PM PSTBrenda called to follow up on request, patient is very eager to get moving on this for hopes that it will ohelp with her pain. Please call patient to follow up at [phone]. Patient was informed that provider is out of the office until 07/06/2018.Electronically sig yesenia by Shalonda Mcdermott at 07/05/2018 12:14 PM PSTTelephone Encounter - Maggie Montoya LPN - 4:49 PM PSTPatient notified of comments/recommendations. States would like orde r for renal US at [facility]. Please advise elephone Encounter - Mary Kay Kuo - 06/30/2018 4:24 P M PSTPatient called, please advise. elephone Encounter - Petrona Thapa MD - 06/30/2018 3:59 PM PSTI don't have access to [facility]'s system to see the actual MRI [...] got a call from her doctor in [place] stating th e tumor on her kidney was larger and they wonder if that could be causing issues with her ba ck. Patient would like a call back to advise, . elephone Encounter - Ayla Quezada - 06/30/2018 1:50 PM PSTPatient called in stated she would like to talk to the nurse regarding her back issue. Please advise [phone] signed by Ayla Quezada at 06/30/2018 1:52 [...] | | | | | [place] [address] | | | | | | [phone] | | | | | | | | +--------+---------+ + + + | 12/20/ | Office | Otolaryngology | Ulysses Genao MD | | | 2019 | Visit | | [address] | | | | | | [address] | | | | | | [place] [address] | | | | | | [phone] | | | | | | | | +--------+---------+ + + + | 02/15/ | Office | Internal Medicine | Alanis, | | | 2019 | Visit | | MD Petrona | | | | | | [address] [place] | | | | | | [place] [address] | | | | | | [phone] | | | | | | | [...]
--- OUTSIDE RECORDS SUMMARY | ~2019-12-13 | XMS | Encounter Summary ---
Demographics + + + | Address | [address] | | | [place] [address] | + + + | Home Phone [...] Team Providers + +------+ + | Care Xerox Machine Mechanic Name | Role | Phone [...] | | | | | elsewhere | [place], [place] | [place], [place] | | | | | classified | [address] | [address] | | | | | Procedures | | Phone: | | | | | [place] | | [phone] | | | | | PSYCHOTHERPY | | Fax: | | | | | , OFFICE | | [phone] | | | | | [phone]) | | | +--------+--------+ + + + + Encounter Details +--------+---------+ + + + | Date | Type | Department | Care Team | Description | +--------+---------+ + + + | 07/15/ | Office | [facility] | Lukasz Charles, | Major Depressive | | 2006 | Visit | [address] | PhD [address] | Disorder, Recurrent | | | | Mailcode: CH15P | [place], [place] | Episode, Moderate | | | | [facility] | [address] | ([facility]); Cervical | | | | and Healing, | [phone] | 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 Diagnosis: Cleveland I: 1. (296.32) Major depressive disorder, recurrent, moderate. 2. (309.24) Adjustment disorder with anxiety. 3. 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 Cleveland II: Deferred Cleveland III: abdominal pain, migraine headache, low back pain. Cleveland IV: low finances Cleveland V: GAF 50 Plan: Return in 2 weeks. Check relaxation and activity. Check mood. Continue cognitive/behavio ral therapy. Total time spent with patient was approximately 50 minutes. LUKASZ CHARLES PHD [facility] [address] [place] [address] [facility], [address] [place] [address] documented in this [facility] Plan of Treatment + + +--------+ [...] + + +--------+ + + | [place] BIOFEEDBACK | Procedures | Routin | Cervical [...]
--- OUTSIDE RECORDS SUMMARY | ~2019-12-13 | XMS | Encounter Summary ---
Demographics + + + | Address | [address] | | | [place] [address] | + + + | Home Phone [...] Team Providers + +------+ + | Care Cocoa Mill Operator Name | Role | Phone [...] 2006 | Visit | [facility] | MD Darrion,PhD [address] | (Primary Dx) | | | | for Health and | [address] | | | | | Healing [address] | [place], [place] | | | | | Ave Mailcode: | [address] | | | | | CH12A [facility] for | [phone] | | | | | Health and Healing, | | | | | | [facility] | | | | | | Floor [place], [place] | | | | | | [address] | | | | | | [phone] | | | +--------+---------+ + + + [...] normal limits except as noted. RIGHT LEFT [place] Crepitation J Sign Apprehension LIGAMENTS: Within normal [...] are not effective. Angel Morales M.D., Ph.D. School Health Assistant, Surgical Waiter/Waitress [employer] Cart[facility] Reconstruction Surgery Department of Orthopedics [email or web address] documented in this encou nter Plan of Treatment Not on filedocumented as of this encounter Visit Diagnoses + + | Diagnosis | + + | Osteoarthrosis, unspecified whether generalized or localized, lower leg - Primary | + + documented in this encounter
--- OUTSIDE RECORDS SUMMARY | ~2019-12-13 | XMS | Encounter Summary ---
Demographics + + + | Address | [address] | | | [place] [address] | + + + | Home Phone [...] Providers + +------+ + | Care Casino Beverage Server Name | Role | Phone [...] Results | | 2016 | | MEDICINE [address] [place] [address] | MD Petrona | | | | | MALIK FENTON, | [address] [place] [address] | | | | | [place] [address] | [place] [address] | | | | | [phone] | [phone] | | | | | | | [...] to have it done here rather than [place]. She denies any claustrophobia so she is [...] results yet. She states [facility] in [place] said they sent them to us but I explained to her that if they mailed them then the results will be processed as scanned media document and that take s some time. Will attempt to get imaging reports expedited from [facility] elephone Alan Ennis - 05/12/2017 1:36 PM PSTPatient is calling on status of xray i n [place], [place]. Patient is asking for a call back. elephone Shlomo - Alan Odell - 2016 3:53 PM PSTPatient called back regarding image results elephone Shlomo - Alan Odell - 05/11/2017 9:24 AM PSTContact/Caller: Belinda Contact Number: [phone] Provider/Nurse: Emmy Reason for Call: Patient's is asking about image results done on Thursday in [facility]. Shaniae nt also is asking that the results be sent to doctor in [place]. Please advise. Last Appointment: 05-04-17 Next Appointment: [...] | | | | | [place] [address] | | | | | | [phone] | | | | | | | | +--------+---------+ + + + | 12/20/ | Office | Otolaryngology | Ulysses Genao MD | | | 2019 | Visit | | [address] | | | | | | [address] | | | | | | [place] [address] | | | | | | [phone] | | | | | | | | +--------+---------+ + + + | 02/15/ | Office | Internal Medicine | Alanis, | | | 2019 | Visit | | MD Petrona | | | | | | [address] [place] | | | | | | [place] [address] | | | | | | [phone] | | | | | | | | +--------+---------+ + + + documented as of this encounter Visit Diagnoses + + | Diagnosis | + + | Acute bilateral low back pain with bilateral sciatica - Primary | + + documented in this encounter"
--- OUTSIDE RECORDS SUMMARY | ~2019-12-13 | XMS | Encounter Summary ---
Demographics + + + | Address | [address] | | | [place] [address] | + + + | Home Phone [...] Providers + +------+ + | Care Medical Claims Assistant Name | Role | Phone | + +------+ + | Petrona Thapa | PCP | | | MD | | | + +------+ + Encounter Details +--------+ + + + + | Date | Type | Department | Care Team | Description | +--------+ + + + + | 09/01/ | Abstract | [facility] | Provider, | | | 2018 | | GASTROENTEROLOGY | MD Colin [address] | | | | | [address] [facility] | Sulma Boyd | | | | | [address] [place] | [place] [address] | | | | | [address] | | | | | | [phone] | | | +--------+ + + + [...] | | | | | [place] [address] | | | | | | [phone] | | | | | | | | +--------+---------+ + + + | 12/20/ | Office | Otolaryngology | Ulysses Genao MD | | | 2019 | Visit | | [address] | | | | | | [address] | | | | | | [place] [address] | | | | | | [phone] | | | | | | | | +--------+---------+ + + + | 02/15/ | Office | Internal Medicine | Alanis, | | | 2019 | Visit | | MD Petrona | | | | | | [facility] [address] | | | | | | [place] [address] | | | | | | [phone] | | | | | | | | +--------+---------+ + + + documented as of this encounter Visit Diagnoses Not on filedocumented in this encounter"
[~2019-12-13 19:11] MED LIST changes: +HYDROCODON-ACE1 EAC8 PO; +IMITREX25 MG PO; +VENTOLIN HFA18 GM INH
--- OUTSIDE RECORDS SUMMARY | 2019-12-13 19:14 | XMS ---
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 Care History Medical/Surgical 12/14/2018 [facility] HISTORY:\T\nbsp; SPINE SURGERY - [facility] [place] [place] ([phone]) HX: MENIERE\T\#39; S SYNDROME (HAS RX FOR MECLIZINE THROUGH PCP DR CLEMENCIA [place]); MIGRAINES;OSTEOARTHRITIS;SCOLIOSIS;DUMPING SYNDROME;IBS CHRONIC PAIN. 11/10/2018 [facility] - [facility] CONTACTED PATIENT. PATIENT HAS A PCP APT WITH PCP OFFICE ON 11/15/18 FOR ER FOLLOW UP. Mona VISIT COUNT (12 MO.) 5 DAVID Martin TOTAL 5 NOTE: Visits indicate total known visits. ED/UCC VISIT TRACKING (12 MO.) 12/13/2019 19:11 [facility] [place] TYPE: Emergency COMPLAINT: - NAUSEA, HEADACHE 11/17/2019 21:04 [facility] [place] TYPE: Emergency COMPLAINT: - LEFT ANKLE PAIN DIAGNOSES: - Other ferry terminal agent (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 - Personal history of nicotine dependence - Pain in left ankle and joints of left foot - Allergy status to sulfonamides status - Sprain of unspecified ligament of left ankle, initial encount - Allergy status to other drugs, medicaments and biological sub - Migraine, unspecified, not intractable, without status migrai - Allergy status to narcotic agent status - Allergy status to penicillin - Fall on same level from slipping, tripping and stumbling with - Allergy status to other antibiotic agents status 10/17/2019 10:08 [facility] [place] TYPE: Emergency COMPLAINT: - FLU SYMPTOMS DIAGNOSES: - Personal history of nicotine dependence - Allergy status to narcotic agent status - Nausea with vomiting, unspecified - Allergy status to analgesic agent status - Other [place] (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 - Vomiting, unspecified - [...] status to narcotic agent status - Other ferry terminal agent (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 - Allergy status to sulfonamides status - Cellulitis of left lower limb - Allergy status to other antibiotic agents status - Migraine, unspecified, not intractable, without status migrai 06/25/2019 21:[address] [facility] [place] TYPE: Emergency COMPLAINT: - RIGHT SHOULD/ARM PAIN DIAGNOSES: - Allergy status to sulfonamides status - Other [place] [facility] (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 - Allergy status to penicillin - Allergy status to other antibiotic agents status - Acute pain due to trauma - Migraine, unspecified, not intractable, without status migrai - Personal history of nicotine dependence - Allergy status to analgesic agent status - Allergy status to narcotic agent status - Pain in right shoulder INPATIENT VISIT TRACKING (12 MO.) No inpatient visits to display in this time frame [id number]
== END 2019-12-13 21:11 | disposition home or self-care (01) ==
LOC: ED 19:11
DX: G43.909 Migraine, unspecified, not intractable, without status migrainosus (principal); Z87.891 Personal history of nicotine dependence; Z88.0 Allergy status to penicillin; Z88.2 Allergy status to sulfonamides; Z88.1 Allergy status to other antibiotic agents; Z88.5 Allergy status to narcotic agent; Z88.8 Allergy status to other drugs, medicaments and biological substances; Z79.899 Other long term (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
CPT/HCPCS: 70450; 96374; 96375; 99284-25; J1100; J1200; J1630; J7030

== ENCOUNTER 2020-01-25 16:12 | Emergency (ER) | payer MEDICARE, OTHER ==
[~2020-01-25] VITALS: Ht 167.6 cm; Wt 99.8 kg
--- OUTSIDE RECORDS SUMMARY | ~2020-01-25 | XMS | Encounter Summary ---
Demographics + + + | Address | [address] | | | [place] [address] | + + + | Home Phone | | + + + | Preferred Language | Unknown | + + + | Marital Status | Single | + + + | Catholic Affiliation | ADV | + + + | Race | White | + + + | Ethnic Group | Not or | + + + Author + + + | Author | [facility] | + + + | Organization | [facility] | + + + | Address | [...] Team Providers + +------+ + | Care Assistant Boys Track Coach Name | Role | Phone | + +------+ + | Pedrito Gutierrez MD | PCP | | + +------+ + Reason for Visit + + + | Reason | Comments | + + + | Erroneous Encounter | duplicate call; see other encounter | | - Disregard | | + + + Encounter Details +--------+ + + + + | Date | Type | Department | Care Team | Description | +--------+ + + + + | 04/09/ | Telephone | [facility] Division of | Carlos Arreola, | Erroneous Encounter | | 2005 | | Gastroenterology/Hep | [address] | - Disregard | | | | atology [address] | (duplicate call; see | | | | [address] | [place] [address] | other encounter ) | | | | Mailcode: [id number] | [phone] | | | | | [facility] | | | | | | [address] | | | | | | [place], [place] | | | | | | [address] | | | | | | [phone] | | | +--------+ + + + + Social History + + + +--------+------+ | Tobacco Use | Types | Packs/Day | Years | Date | | | | | Used | | + + + +--------+------+ | Former Smoker | Cigarettes | 1 | 30 | | + + + +--------+------+ + + +---------+ + | Alcohol Use [...] as of this encounter Plan of Treatment Not on filedocumented as of this encounter Visit Diagnoses Not on filedocumented in this encounter"
--- OUTSIDE RECORDS SUMMARY | ~2020-01-25 | XMS | Encounter Summary ---
Demographics + + + | Address | [address] | | | [place] [address] | + + + | Home Phone | | + + + | Preferred Language | Unknown | + + + | Marital Status | | + + + | Methodist Affiliation | 1001 | + + + | Race | Unknown | + + + | Ethnic Group | Unknown | + + + Author + + + | Author | [facility] | | | and [place] | + + + | Organization | [facility] | | | [...] Team Providers + +------+ + | Care Foster Winder Name | Role | Phone | + +------+ + | Petrona Thapa | PCP | | | MD | | | + +------+ + Reason for Referral Evaluate & Treat (Routine) +--------+ + + + + + | Status | Reason | Specialty | Diagnoses / | Referred By | Referred To | | | | | Procedures | Contact | Contact | +--------+ + + + + + | Closed | Specialty | Gastroenterol | Diagnoses | | [facility] | | Services | ogy | Chronic | [facility] | Gastroenterol | | | Required | | diarrhea | i, | ogy [address] | | | | S/P gastric | [facility]Gily | [address] | | | | | bypass | , MD [address] | | | | | | [address] | [place], [place] | | | | | | [place], | [address] | | | | | | [place] | Phone: | | | | | | [address] | [phone] | | | | | | Phone: | Fax: | | | | | | [phone] | [phone] | | | | | | Fax: | | | | | | | [phone] | | +--------+ + + + + + Reason for Visit +--------+ + | Reason | Comments | +--------+ + | Other | bladder/ bowel issues | +--------+ + Encounter Details +--------+---------+ + + + | Date | Type | Department | Care Team | Description | +--------+---------+ + + + | 10/15/ | Office | [facility] | Alanis, | Mixed stress and | | 2017 | Visit | MEDICINE [address] | MD Petrona | urge urinary | | | | [address] [place], | [address] [facility] | incontinence | | | | [place] [address] | [place] [address] | (Primary Dx); OLIVER | | | | [phone] | [phone] | (obstructive sleep | | | | | | apnea); Chronic | | | | | | diarrhea; 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; S/P | | | | | | gastric bypass; | | | | | | Nausea | +--------+---------+ + + + Social History [...] + + + | Blood Pressure | 112/78 | 10/15/2017 10:35 AM | | | | | PDT | | + + + + + | Pulse | 62 | 10/15/2017 10:35 AM | | | | | PDT | | + + + + + | Temperature | - | - | | + + + + + | Respiratory Rate | 16 | 10/15/2017 10:35 AM | | | | | PDT | | + + + + + | Oxygen Saturation | - | - | | + + + + + | Inhaled Oxygen | - | - | | | Concentration | | | | + + + + + | Weight | 98.1 kg (216 lb 4.3 | 10/15/2017 10:35 AM | | | | oz) | PDT | | + + + + + | Height | 172.7 cm (5' 8") | 10/15/2017 10:35 AM | | | | | PDT | | + + + + + | Body Mass Index | 32.88 | 10/15/2017 10:35 AM | | | | | PDT | | + + + + + documented in this encounter Progress Notes Petrona Thapa MD - 10/15/2017 10:45 AM PDTFormatting of this note might be d ifferent from the original. CHIEF COMPLAINT Chief Complaint Patient presents with Other bladder/ bowel issues HPI Belinda Meehan is a 57 y.o. y/o female who presents today for several issues: She has a long history of urinary incontinence as well as fecal incontinence. She states h er fecal incontinence is quite bothersome, sometimes she goes to numerous incontinence pads in the day. She states her symptoms started after she had gastric bypass surgery a number o f years ago. No blood in the stool. She is taking Lomotil with limited benefit. She is ne eding refills of incontinence pads and clots. She also needs refills for her CPAP mask, current mask is not usable anymore. She is refill of Zofran which she uses as needed for nausea. Had a recent fall in the bathtub by slipping, has a bruise on her right lower extremity. No chest pain palpitations or shortness of breath. REVIEW OF SYSTEMS See HPI for further details. Review of systems otherwise negative. PAST MEDICAL HISTORY Past Medical History: Diagnosis Date Anemia Anxiety Arthritis Atypical chest pain Benign essential hypertension Blind left eye Cervical radiculopathy Chronic bilateral low back pain with left-sided sciatica Chronic low back pain 01/04/2015 Chronic neck pain 01/04/2015 Chronic pain Chronic venous insufficiency Coccydynia Depression Diarrhea Dumping syndrome Fall at home Fatigue fracture of vertebra Fibromyalgia GERD (gastroesophageal reflux disease) Glaucoma Hyperparathyroidism (HCC) Hypothyroidism IBS (irritable bowel syndrome) Idiopathic scoliosis Leg edema Low back pain Lumbar postlaminectomy syndrome Lumbar radiculopathy primarily right 01/04/2015 Meniere syndrome Migraine with aura Migraines Muscle cramping Muscle spasm Myalgia Nonalcoholic hepatosteatosis Obesity Opioid dependence (HCC) Orthostatic hypotension OLIVER (obstructive sleep apnea) Osteoarthritis, generalized Osteopenia Osteoporosis Peripheral neuropathy Rheumatoid arthritis (HCC) Right arm pain 01/04/2015 RLS (restless legs syndrome) S/P lumbar fusion 01/04/2015 Scoliosis Sleep apnea Spondylosis with myelopathy, lumbar region Stroke (HCC) Syncope Tremor Type II or unspecified type diabetes mellitus with other specified manifestations, not stated as uncontrolled 05/04/2017 Vitamin D deficiency FAMILY HISTORY Family History Problem Relation Age of Onset Arthritis Mother High blood pressure Mother Fibromyalgia Mother Osteoporosis Mother Thyroid disease Mother Cancer Mother Allergies Mother Arthritis Father Heart disease Father Seizures Sister Migraines Sister Arthritis Sister Allergies Sister Arthritis Maternal Grandmother High blood pressure Maternal Grandmother Stroke Maternal Grandmother Allergies Maternal Grandmother Thyroid disease Maternal Grandmother Arthritis Maternal Grandfather Heart disease Maternal Grandfather High blood pressure Maternal Grandfather Allergies Maternal Grandfather Cancer Maternal Grandfather Kidney disease Maternal Grandfather High blood pressure Paternal Grandmother Heart disease Paternal Grandmother Arthritis Paternal Grandmother Stroke Paternal Grandmother Breast cancer Paternal Grandmother High blood pressure Paternal Grandfather Heart disease Paternal Grandfather Allergies Paternal Grandfather Stroke Paternal Grandfather Arthritis Paternal Grandfather High blood pressure Brother Migraines Brother Arthritis Brother Arthritis Son High blood pressure Son Renal Failure Son SOCIAL HISTORY Social History Social History Marital status: Spouse name: N/A Number of children: 2 Years of education: N/A Social History Main Topics Smoking status: Former Smoker Packs/day: 0.50 Years: 30.00 Types: Cigarettes Quit date: 04/15/2014 Smokeless tobacco: Never Used Comment: stopped smoking Alcohol use No Drug use: No Sexual activity: No Other Topics Concern None Social History Narrative None SURGICAL HISTORY Past Surgical History: Procedure Laterality Date ADENOIDECTOMY APPENDECTOMY BREAST LUMPECTOMY Left 2002 BREAST LUMPECTOMY 2002 CARPAL TUNNEL RELEASE 2002 SECTION CHOLECYSTECTOMY 2004 DILATION AND CURETTAGE OF UTERUS ELBOW SURGERY FINGER TRIGGER RELEASE 2002 FINGER TRIGGER RELEASE 2009 GASTRIC BYPASS SURGERY 2004 HYSTERECTOMY 05/14/1980 JOINT REPLACEMENT Bilateral 2007,2008 KNEE ARTHROSCOPY 2005 LAPAROSCOPY 01/27/2015 LAPAROTOMY 2008 ROTATOR CUFF REPAIR 2005 SPINE SURGERY TONSILLECTOMY 1964 CURRENT MEDICATIONS Current Outpatient Prescriptions Medication Sig Dispense Refill ascorbic acid (VITAMIN C) 500 mg tablet Take 500 mg by mouth Daily. azithromycin (ZITHROMAX) 250 mg tablet Take 2 tablets by mouth on day 1, and 1 tablet b y mouth every day 6 tablet 0 betaxolol 0.5% ophthalmic suspension Place 1 drop into both eyes 2 times daily. Calcium Carbonate (CALTRATE 600 PO) TABS: 1 tablet by mouth four times a day (Patient taking differently: Take 2,000 mg by mouth Daily.) cholecalciferol (VITAMIN D-3) 5000 UNITS TABS Take 5,000 Units by mouth Daily. clobetasol (TEMOVATE) 0.05% cream apply topically to affected area twice a day 0 diphenoxylate-atropine (LOMOTIL) 2.5-0.025 mg per tablet Take 1 tablet by mouth 4 times daily as needed for Diarrhea. 120 tablet 5 fluticasone (FLONASE) 50 mcg/nasal spray 1 spray by Nasal route 2 times daily. 9.9 mL 5 furosemide (LASIX) 80 mg tablet Take 1 tablet by mouth 2 times daily. 180 tablet 1 gabapentin (NEURONTIN) 300 mg capsule Take 4 capsules by mouth 3 times daily for 30 day s. 360 capsule 3 HYDROcodone-acetaminophen (NORCO) 10-325 mg per tablet Take 1 tablet by mouth every 6 h ours as needed for Pain. levothyroxine (SYNTHROID) 75 MCG tablet Take 1 tablet by mouth every morning (before br eakfast). 90 tablet 3 meclizine (ANTIVERT) 25 mg tablet take 1 tablet by mouth three times a day if needed fo r dizziness 0 methocarbamol (ROBAXIN) 750 mg tablet take 1 tablet by mouth twice a day 60 tablet 3 metoprolol tartrate (LOPRESSOR) 25 mg tablet take 1/2 tablet by mouth twice a day 30 ta blet 11 Multiple Vitamins-Minerals (COMPLETE WOMENS) TABS 1 tablet by mouth twice daily naloxone (NARCAN) 0.4 mg/mL injection inject subcutaneously ONCE if needed for LETHARGY /OVERDOSE 0 nitroglycerin (NITROSTAT) 0.[address] 1 tablet under the tongue every 5 lupe nader as needed for Chest pain. 25 tablet 3 omeprazole (PRILOSEC) 20 mg capsule take 1 capsule by mouth twice a day 180 capsule 1 ondansetron (ZOFRAN ODT) 4 mg disintegrating tablet Take 1 tablet by mouth every 6 hour s. 120 tablet 3 potassium chloride (K-DUR) 20 mEq ER tablet take 3 tablets by mouth every morning and 2 every evening with food 450 tablet 1 sucralfate (CARAFATE) 1 g tablet Take 1 tablet by mouth 4 times daily as needed. 120 ta blet 1 topiramate (TOPAMAX) 50 MG tablet take 2 tablets by mouth every 12 hours for MIGRAINE P REVENTION 228 tablet 5 torsemide (DEMADEX) 5 mg tablet take 1 tablet by mouth 5 TIMES A WEEK 25 tablet 5 travoprost (TRAVATAN Z) 0.004% ophthalmic solution 1 drop nightly. UNABLE TO FIND CPAP Mask 400 each 5 zoledronic acid (RECLAST) 5 mg/100 mL SOLN Inject 5 mg into the vein once. YEARLY Current Facility-Administered Medications Medication Dose Route Frequency Provider Last Rate Last Dose cyanocobalamin (VITAMIN B-12) injection 1,000 mcg 1,000 mcg Intramuscular Q30 Days Morelia Thapa MD 1,000 mcg at 10/15/17 1149 ALLERGIES Allergies Allergen Reactions Codeine Sulfate Nausea Only Levofloxacin Hives, Itching and Rash Amitriptyline Hcl Other (See Comments) Confused and questionable for seizures Arglqtqvvh-Xbya-Jplegmto Cephalexin Hives Duloxetine Migraines and nausea Ketorolac Hives Morphine Swelling Ropinirole Hcl Hives Tramadol Hcl Nausea Only Rnretzxovi-Gzbu-Dglibepb Hives and Rash Ciprofloxacin Hives and Rash Clarithromycin Hives and Rash Clindamycin Hcl Hives and Rash Doxycycline Rash Levofloxacin Hives and Rash Penicillins Hives and Rash Sulfamethoxazole-Trimethoprim Hives and Rash PHYSICAL EXAM VITAL SIGNS: BP 112/78 | Pulse 62 | Resp 16 | Ht 1.727 m (5' 8") | Wt 98.1 kg (216 lb 4 .3 oz) | BMI 32.88 kg/m Constitutional: Well developed, Well nourished, No acute distress, Pleasant female. Cardiovascular: Regular rate & rhythm, No murmurs, No rubs, No gallops. No lower extremitie s edema. Thorax & Lungs: Normal breath sounds, No respiratory distress, No wheezing, No rubs. Abdomen: Bowel sounds normal, Soft, nontender. Skin: Warm, Dry, No erythema, No rash. Musculoskeletal: Good range of motion in all major joints. No tenderness to palpation or ma amanda deformities noted. Neurologic: Alert & oriented x 3. Psychiatric: Affect normal, Judgment normal, Mood normal. ASSESSMENT & PLAN 1. Mixed stress and urge urinary incontinence Incontinence supplies and glove prescriptions renewed. 2. OLIVER (obstructive sleep apnea) - UNABLE TO FIND; CPAP Mask Dispense: 400 each; Refill: 5 3. Chronic diarrhea 4. Dumping syndrome - I think her symptoms warrant a GI consult. - * [facility] - AMB Referral; Future 5. S/P gastric bypass - * [facility] Ref[facility]; Future 6. Nausea - ondansetron (ZOFRAN ODT) 4 mg disintegrating tablet; Take 1 tablet by mouth every 6 hours . Dispense: 120 tablet; Refill: 3 FOLLOW-UP Return in about 3 months (around 01/15/2018). Note: Parts of this documentwere created using Nano speech recognition software. As a r esult, there may be unintended word spelling errors. Every attempt was made to correct the dictation. Tana, Anastasia Leonardo LPN - 10/15/2017 10:45 AM PDTFormatting of this note might be different from the origi nal. Administrations This Visit cyanocobalamin (VITAMIN B-12) injection 1,000 mcg Admin Date 10/15/2017 Action Given Dose 1000 mcg Route Intramuscular Administered By Maggie Montoya LPN Vitamin B12 1000mcg given IM left deltoid. Patient tolerated injection well. documented in this enc ounter Plan of Treatment +--------+---------+ + + + | Date | Type | Specialty | Care Team | Description | +--------+---------+ + + + | 02/15/ | Office | Internal Medicine | Alanis, | | | 2019 | Visit | | MD Petrona | | | | | | [address] [place] [address] | | | | | | [place] [address] | | | | | | [phone] | | | | | | | | +--------+---------+ + + + + + +--------+ + + | Name | Type | Priori | Associated Diagnoses | Order Schedule | | | | ty | | | + + +--------+ + + | * [facility] | Outpatient | Routin | Chronic diarrhea | Expected: | | Gastroenterology - | Referral | e | S/P gastric bypass | 10/15/2017, Expires: | | AMB Referral | | | | 10/15/2018 | + + +--------+ + + documented as of this encounter Visit Diagnoses + + | Diagnosis | + + | Mixed stress and urge urinary incontinence - Primary Mixed incontinence urge and | | stress (male)(female) | + + | OLIVER (obstructive sleep apnea) Obstructive sleep apnea (adult) (pediatric) | + + | Chronic diarrhea Diarrhea | + + | Dumping syndrome Postgastric surgery syndromes | + + | S/P gastric bypass Bariatric surgery status | + + | Nausea Nausea alone | + + documented in this encounter [...] | | | | First dose on [facility] 10/15/17 at 1215 | | | [...] | | | +---+---+ documented in this encounter
--- OUTSIDE RECORDS SUMMARY | ~2020-01-25 | XMS | Encounter Summary ---
Demographics + + + | Address | [address] | | | [place] [address] | + + + | Home Phone | | + + + | Preferred Language | Unknown | + + + | Marital Status | | + + + | [employer]aritan Affiliation | 1001 | + + + | Race | Unknown | + + + | Ethnic Group | Unknown | + + + Author + + + | Author | [facility] | | | and [place] | + + + | Organization | [facility] | | | and [...] Team Providers + +------+ + | Care Pipe Insulator Helper Name | Role | Phone | + +------+ + | Petrona Thapa | PCP | | | MD | | | + +------+ + Reason for Visit + +--------+ + | Reason | Onset | Comments | | | Date | | + +--------+ + | Medication Refill | 02/15/ | | | | 2018 | | + +--------+ + Encounter Details +--------+--------+ + + + | Date | Type | Department | Care Team | Description | +--------+--------+ + + + | 02/15/ | Refill | [facility] | Alanis, | Medication Refill | | 2018 | | MEDICINE [address] | MD Petrona | | | | | [place], | [address] | | | | | [place] [address] | [place] [address] | | | | | [phone] | [phone] | | | | | | | | +--------+--------+ + + + Social History + + [...] this encounter Miscellaneous Notes Telephone Encounter - Maggie Montoya LPN - 02/15/2019 5:21 PM PDTPatient notified of mor pablo with comments/recommedations. Patient requesting US be sent to [facility], [place] elephone Lula dhillon - Maggie Montoya LPN - 02/15/2019 5:21 PM PDT----- Message from Petrona Morales MD sent at 02/15/2019 16:20 PDT ----- Labs show mildly elevated liver enzymes. Since I do not have a recent ultrasound of her li garth, I ordered one. You may send the order to [facility] if it is easier for her to do with there.Scott moreau signed by Maggie Montoya LPN at 02/15/2019 5:21 PM PDTdocumented in this encounter Plan of Treatment +--------+---------+ + + + | Date | Type | Specialty | Care Team | Description | +--------+---------+ + + + | 02/15/ | Office | Internal Medicine | Alanis, | | | 2019 | Visit | | MD Petrona | | | | | | [address] | | | | | | [place] [address] | | | | | | [phone] | | | | | | | | +--------+---------+ + + + documented as of this encounter Visit Diagnoses Not on filedocumented in this encounter"
--- OUTSIDE RECORDS SUMMARY | ~2020-01-25 | XMS | Clinical Summary ---
Demographics + + + | Address | [address] | | | [place] [address] | + + + | Home Phone | | + + + | Preferred Language | Unknown | + + + | Marital Status | | + + + | Rastafarian Affiliation | 1001 | + + + | Race | Unknown | + + + | Ethnic Group | Unknown | + + + Author + + + | Author | [facility] | | | and [place] | + + + | Organization | [facility] | | | [...] Team Providers + +------+ + | Care Director Of Parks And Recreation Name | Role | Phone | + +------+ + | Petrona Thapa | PCP | | | MD | | | + +------+ + Allergies + + + + + + | Active Allergy | Reactions | Severity | Noted | Comments | | | | | Date | | + + + + + + | Amitriptyline Hcl | Other (See Comments) | Low | | Confused and | | | | | | questionable for | | | | | | seizures | + + + + + + | Butalbital | | | 01/25/20 | | | | | | 16 | | + + + + + + | Lyhmjoptyk-Escu-Zfoe | Rash | Low | | duplicate | | eine | | | | | + + + + + + | Cyuzokfdxb-Tpki-Zkyg | Hives, Rash | Low | 03/25/20 | | | eine | | | 17 | | + + + + + + | Affuporiba-Xpi-Rbko- | Other (See Comments) | Medium | 08/29/19 | Balance problems | | Codeine | | | 09 | | + + + + + + | Cephalexin | Hives | Low | 03/25/20 | | | | | | 17 | | + + + + + + | Ciprofloxacin | Hives, Rash | Low | | | + + + + + + | Clarithromycin | Hives, Rash | Low | | | + + + + + + | Clindamycin Hcl | Hives, Rash | Low | | | + + + + + + | Codeine Sulfate | Nausea Only | Medium | 05/20/20 | | | | | | 10 | | + + + + + + | Doxycycline | Rash | Low | 03/25/20 | | | | | | 17 | | + + + + + + | Duloxetine | Other (See Comments) | Low | 07/16/19 | Migraines and | | | | | 18 | nausea | + + + + + + | Ensure | Diarrhea | High | | | + + + + + + | Food | Diarrhea | High | | | + + + + + + | Food Allergy Formula | Diarrhea | Medium | 12/30/19 | Ensure | | | | | 19 | | + + + + + + | Ketorolac | Hives | Low | 11/24/19 | | | | | | 15 | | + + + + + + | Lactose | | High | 04/08/20 | | | | | | 18 | | + + + + + + | Levofloxacin | Hives, Rash | Low | | | + + + + + + | Levofloxacin | Hives, Itching, Rash | Medium | 01/11/20 | | | | | | 10 | | + + + + + + | Morphine | Swelling | Low | | | + + + + + + | Penicillins | Hives, Rash | Low | | | + + + + + + | Ropinirole | | | 09/20/20 | | | | | | 18 | | + + + + + + | Ropinirole Hcl | Hives | Low | 07/16/19 | | | | | | 18 | | + + + + + + | Sulfamethoxazole-Tri | Hives, Rash | Low | | | | methoprim | | | | | + + + + + + | Tramadol Hcl | Nausea Only | Low | | | + + + + + + Medications + + + +---------+------+------+-------+ | Medication | Sig | Dispensed | Refills | Star | End | Statu | | | | | | t | Date | s | | | | | | Date | | | + + + +---------+------+------+-------+ | Multiple | 1 tablet by mouth | | 0 | 02/13 | | Activ | | Vitamins-Minerals | twice daily | | | 12/02 | | e | | (COMPLETE WOMENS) | | | | 12 | | | | TABS | | | | | | | + + + +---------+------+------+-------+ | ascorbic acid | Take 500 mg by mouth | | 0 | | | Activ | | (VITAMIN C) 500 mg | Daily. | | | | | e | | tablet | | | | | | | + + + +---------+------+------+-------+ | cholecalciferol | Take 5,000 Units by | | 0 | | | Activ | | (VITAMIN D-3) 5000 | mouth Daily. | | | | | e | | UNITS TABS | | | | | | | + + + +---------+------+------+-------+ | zoledronic acid | Inject 5 mg into the | | 0 | | | Activ | | (RECLAST) 5 mg/100 | vein once. YEARLY | | | | | e | | mL SOLN | | | | | | | + + + +---------+------+------+-------+ | | Take 1 tablet by | | 0 | | | Activ | | HYDROcodone-acetamin | mouth every 4 hours | | | | | e | | ophen (NORCO) 10-325 | as needed for Pain | | | | | | | mg per tablet | (not more then 6 | | | | | | | | tablets daily). | | | | | | + + + +---------+------+------+-------+ | zinc sulfate 220 | Take 1 capsule by | 30 | 1 | 10/2 | | Activ | | mg | mouth Daily. | capsule | | 5/20 | | e | | capsuleIndications: | | | | 18 | | | | Pressure injury of | | | | | | | | right buttock, stage | | | | | | | | 1 | | | | | | | + + + +---------+------+------+-------+ | Incontinence | As directed | 100 | 11 | 11/2 | | Activ | | Supplies | | each | | 1/20 | | e | | MISCIndications: | | | | 18 | | | | Mixed incontinence | | | | | | | | urge and stress | | | | | | | | (male)(female), | | | | | | | | Inflammatory bowel | | | | | | | | disease | | | | | | | + + + +---------+------+------+-------+ | COMBIGAN 0.2-0.5 % | | | 0 | 09/0 | | Activ | | ophthalmic solution | | | | 1/20 | | e | | | | | | 18 | | | + + + +---------+------+------+-------+ | EPINEPHrine | Inject into the | | 0 | | | Activ | | (EPIPEN) 0.3 mg/0.3 | muscle once as | | | | | e | | mL injection (ER | needed for | | | | | | | Prepack) | Anaphylaxis. | | | | | | + + + +---------+------+------+-------+ | methocarbamol | take 1 tablet by | 60 | 3 | 06/1 | | Activ | | (ROBAXIN) 750 mg | mouth twice a day | tablet | | 1/20 | | e | | tablet | | | | 19 | | | + + + +---------+------+------+-------+ | meclizine | take 1 tablet by | 90 | 0 | 07/0 | | Activ | | (ANTIVERT) 25 mg | mouth three times a | tablet | | 2/20 | | e | | tablet | day if needed for | | | 19 | | | | | dizziness | | | | | | + + + +---------+------+------+-------+ | naloxone (NARCAN) | Inject 1 mL under | 1 mL | 4 | 09/0 | | Activ | | 0.4 mg/mL | the skin as needed | | | 3/20 | | e | | injectionIndications | for Apnea or | | | 19 | | | | : buttermaker | Decreased | | | | | | | prescription opiate | Responsiveness. | | | | | | | use | | | | | | | + + + +---------+------+------+-------+ | metoprolol | take 1/2 tablet by | 30 | 11 | 09/0 | | Activ | | tartrate (LOPRESSOR) | mouth twice a day | tablet | | 5/20 | | e | | 25 mg tablet | | | | 19 | | | + + + +---------+------+------+-------+ | nitroglycerin | Place 1 tablet under | 25 | 11 | 09/0 | | Activ | | (NITROSTAT) 0.4 mg | the tongue every 5 | tablet | | 5/20 | | e | | SL | minutes as needed | | | 19 | | | | tabletIndications: | for Chest pain. | | | | | | | Chest pain, | | | | | | | | unspecified type | | | | | | | + + + +---------+------+------+-------+ | traZODone | Take 1 tablet by | 30 | 3 | 10/0 | | Activ | | (DESYREL) 50 mg | mouth nightly as | tablet | | 7/20 | | e | | tabletIndications: | needed for Insomnia. | | | 19 | | | | Primary insomnia, | | | | | | | | Situational | | | | | | | | depression | | | | | | | + + + +---------+------+------+-------+ | topiramate | take 2 tablets by | 228 | 5 | 10/2 | | Activ | | (TOPAMAX) 50 MG | mouth every 12 hours | tablet | | 1/20 | | e | | tablet | for MIGRAINE | | | 19 | | | | | PREVENTION | | | | | | + + + +---------+------+------+-------+ | omeprazole | take 1 capsule by | 60 | 11 | 11/1 | | Activ | | (PRILOSEC) 20 mg | mouth twice a day | capsule | | 2/20 | | e | | capsule | | | | 19 | | | + + + +---------+------+------+-------+ | potassium chloride | take 3 tablets by | 450 | 3 | 11/1 | | Activ | | (KLOR-CON M20) 20 | mouth every morning | tablet | | 2/20 | | e | | mEq ER tablet | and 2 every evening | | | 19 | | | | | with food | | | | | | + + + +---------+------+------+-------+ | levothyroxine | take 1 tablet by | 90 | 2 | 02/0 | | Activ | | (SYNTHROID) 75 mcg | mouth every morning | tablet | | 4/20 | | e | | tablet | BEFORE BREAKFAST | | | 20 | | | + + + +---------+------+------+-------+ | albuterol 90 | Inhale 2 puffs into | 1 | 5 | 03/0 | | Activ | | mcg/puff inhaler | the lungs every 6 | Inhaler | | 4/20 | | e | | | hours as needed for | | | 20 | | | | | Wheezing, Shortness | | | | | | | | of Breath or | | | | | | | | Increased Work of | | | | | | | | Breathing (cough). | | | | | | + + + +---------+------+------+-------+ | gabapentin | take 3 capsules by | 270 | 4 | 04/2 | | Activ | | (NEURONTIN) 300 mg | mouth three times a | capsule | | 9/20 | | e | | capsule | day | | | 20 | | | + + + +---------+------+------+-------+ | furosemide (LASIX) | take 1 tablet by | 180 | 2 | 06/0 | | Activ | | 80 mg tablet | mouth twice a day | tablet | | 4/20 | | e | | | | | | 20 | | | + + + +---------+------+------+-------+ | ondansetron | Take 1 tablet by | 270 | 2 | 06/1 | | Activ | | (ZOFRAN ODT) 4 mg | mouth every 8 hours | tablet | | 8/20 | | e | | disintegrating | as needed for | | | 20 | | | | tabletIndications: | Nausea. | | | | | | | Nausea | | | | | | | + + + +---------+------+------+-------+ | loperamide | take 4 capsules by | 180 | 5 | 06/2 | | Activ | | (IMODIUM) 2 mg | mouth every morning | capsule | | 2/20 | | e | | capsule | and 2 capsules by | | | 20 | | | | | mouth every evening | | | | | | + + + +---------+------+------+-------+ | SUMAtriptan | Take 1 tablet by | 12 | 5 | 06/2 | | Activ | | (IMITREX) 100 mg | mouth as needed for | tablet | | 9/20 | | e | | tabletIndications: | Migraine Take 1 tab | | | 20 | | | | Migraine without | by mouth on on-set | | | | | | | aura and without | of Migraine, may | | | | | | | status migrainosus, | repeat in 2 hours if | | | | | | | not intractable | needed. Max 2 tabs/ | | | | | | | | 24 hours. | | | | | | + + + +---------+------+------+-------+ | torsemide | take 1 tablet by | 25 | 5 | 07/0 | | Activ | | (DEMADEX) 5 mg | mouth 5 TIMES A | tablet | | 6/20 | | e | | tablet | WEEK. | | | 20 | | | + + + +---------+------+------+-------+ | UNABLE TO | Compression Velcro | 1 each | 0 | 07/0 | | Activ | | FINDIndications: | Brace Pads for Lower | | | 8/20 | | e | | Venous insufficiency | Legs (1 Pair) REHAN: | | | 20 | | | | of both lower | 99 months.. | | | | | | | extremities | | | | | | | + + + +---------+------+------+-------+ + + +-------+ +------+------+-------+ | Hospital, Clinic, or | Ordered | Route | Frequency | Star | End | Statu | | Other Facility | Dose | | | t | Date | s | | Administered | | | | Date | | | | Medication | | | | | | | + + +-------+ +------+------+-------+ | cyanocobalamin | 1000 mcg | IM | EVERY 30 DAYS | 05/0 | | Activ | | (VITAMIN B-12) | | | | 3/20 | | e | | injection 1,000 mcg | | | | 18 | | | + + +-------+ +------+------+-------+ Active Problems + + + | Problem | Noted Date | + + + | B12 deficiency | 04/18/2019 | + + + | Age-related osteoporosis without current pathological fracture | 09/22/2018 | + + + | Fatty liver | 01/15/2018 | + + + | S/P bariatric surgery | 01/15/2018 | + + + | Diarrhea, unspecified type | 11/24/2017 | + + + | Chronic diarrhea | 11/24/2017 | + + + | Gastroesophageal reflux disease, esophagitis presence not | 11/24/2017 | | specified | | + + + | History of gastric ulcer | 11/24/2017 | + + + | Narcotic dependence | 11/24/2017 | + + + | Obesity (BMI 30-39.9) | 11/24/2017 | + + + | Bilateral sacroiliitis | 02/27/2015 | + + + | S/P lumbar fusion | 01/04/2015 | + + + | Chronic neck pain | 01/04/2015 | + + + | Chronic low back pain | 01/04/2015 | + + + | Lumbar radiculopathy primarily right | 01/04/2015 | + + + | BENIGN PAROXYSMAL POSITIONAL VERTIGO | 07/21/2011 | + + + | MENIERE'S DISEASE | 05/20/2010 | + + + | TINNITUS | 05/20/2010 | + + + | History of Zoe-en-Y gastric bypass | 07/25/2008 | + + + | Major depressive disorder, recurrent episode, moderate | 07/31/2006 | + + + | HYPERTENSION, BENIGN ESSENTIAL | | + + + | PALPITATIONS | | + + + | RHEUMATOID ARTHRITIS | | + + + + + | Overview: ICD-10 Record update | + + + +---+ | COMMON MIGRAINE | | + +---+ | FIBROMYALGIA | | + +---+ | SCOLIOSIS , IDIOPATHIC | | + +---+ | HYPOTHYROIDISM | | + +---+ | UNSPECIFIED HEARING LOSS | | + +---+ + + | Overview: ICD-10 Record update | + + + +---+ | RENAL CYST, LEFT | | + +---+ Resolved Problems + + + + | Problem | Noted | Resolved | | | Date | Date | + + + + | Acute carpal tunnel syndrome of right wrist | 01/05/20 | | | | 19 | 9 | + + + + | Dysfunction of left eustachian tube | 01/02/20 | | | | 18 | 9 | + + + + | Abdominal pain | 11/25/19 | | | | 18 | 9 | + + + + | Type II or unspecified type diabetes mellitus with other | 05/04/20 | | | specified manifestations, not stated as uncontrolled | 17 | 9 | + + + + | Right arm pain | 01/05/20 | | | | 15 | 9 | + + + + | Dizziness and giddiness | 05/20/20 | | | | 10 | 9 | + + + + | Chronic shoulder pain | 07/24/19 | | | | 09 | 9 | + + + + + + | Overview: Overview: | | Left: Calcific tendinitis of the supraspinatus tendon. | | Right: Normal | + + + + + + | Coccydynia | 07/24/19 | | | | 09 | 9 | + + + + | Osteopenia | 08/24/19 | | | | 08 | 9 | + + + + | Lumbago | | | | | | 9 | + + + + | CLOS FX UNS PART VERT COLUMN W/O SP CRD INJURY | | | | | | 9 | + + + + Encounters +--------+ + + + + | Date | Type | Specialty | Care Team | Description | +--------+ + + + + | 01/23/ | Telephone | Internal Medicine | Alanis, | Blister | | 2019 | | | MD Petrona | | +--------+ + + + + | 12/20/ | Off-Site | Otolaryngology | Alanis, | Sensorineural | | 2019 | Visit | | MD Petrona | hearing loss (SN[facility]) | | | | | Ulysses Genao MD | of both ears | | | | | | (Primary Dx); | | | | | | Meniere's disease, | | | | | | unspecified | | | | | | laterality | +--------+ + + + + | 12/20/ | Off-Site | Audiology | Alanis, | Follow up (Primary | | 2019 | Visit | | MD Petrona | Dx); German's | | | | | Elisabet Munson MS | disease, unspecified | | | | | CCC-A | laterality | +--------+ + + + + | 12/20/ | Office | Internal Medicine | Alanis, | Medical certificate | | 2019 | Visit | | MD Petrona | issuance (Primary | | | | | | Dx); Other | | | | | | idiopathic | | | | | | scoliosis, lumbar | | | | | | region; Venous | | | | | | insufficiency of | | | | | | both lower | | | | | | extremities; B12 | | | | | | deficiency | +--------+ + + + + | 12/20/ | Telephone | Internal Medicine | Alanis, | Results | | 2019 | | | MD Petrona | | +--------+ + + + + | 12/18/ | Refill | Internal Medicine | Alanis, | Medication Refill | | 2019 | | | MD Petrona | | +--------+ + + + + | 12/12/ | Telephone | Internal Medicine | Alanis, | Headache (Adult - | | 2019 | | | MD Petrona | Recurrent Or Known | | | | | | Dx Migraines) | +--------+ + + + + | 12/11/ | Refill | Internal Medicine | Alanis, | Medication Refill | | 2020 | | | MD Petrona | | +--------+ + + + + | 12/04/ | Orders Only | Internal Medicine | Alanis, | | | 2019 | | | MD Petrona | | +--------+ + + + + | 12/04/ | Telephone | Internal Medicine | Alanis, | Medication Orders | | 2019 | | | MD Petrona | | +--------+ + + + + | 11/29/ | Refill | Internal Medicine | Alanis, | Medication Refill | | 2019 | | | MD Petrona | | +--------+ + + + + | 11/24/ | Orders Only | Internal Medicine | Alanis, | Right wrist pain | | 2019 | | | MD Petrona | (Primary Dx) | +--------+ + + + + | 11/24/ | Orders Only | Internal Medicine | Alanis, | OLIVER (obstructive | 2019 | | | MD Petrona | sleep apnea) | | | | | | (Primary Dx) | +--------+ + + + + | 11/24/ | Telephone | Internal Medicine | Alanis, | Wrist Pain | 2019 | | | MD Petrona | | +--------+ + + + + | 11/17/ | Orders Only | Internal Medicine | Alanis, | Diarrhea, | | 2019 | | | MD Petrona | unspecified type | | | | | | (Primary Dx) | +--------+ + + + + | 11/17/ | Telephone | Internal Medicine | Alanis, | ER Follow-up | | 2019 | | | MD Petrona | | +--------+ + + + + | 11/16/ | Refill | Internal Medicine | Alanis, | Medication Refill | | 2019 | | | MD Petrona | | +--------+ + + + + | 11/15/ | Telephone | Internal Medicine | Alanis, | Foot Injury | | 2019 | | | MD Petrona | | +--------+ + + + + | 11/14/ | Hospital | Radiology | Alanis, | Toe pain, chronic, | | 2019 | Encounter | | MD Petrona | left | +--------+ + + + + | 11/14/ | Office | Internal Medicine | Alanis, | Situational | | 2020 | Visit | | MD Petrona | depression (Primary | | | | | | Dx); B12 deficiency; | | | | | | Chronic diarrhea; | | | | | | History of Zoe-en-Y | | | | | | gastric bypass; Toe | | | | | | pain, chronic, left | +--------+ + + + + | 11/14/ | Telephone | Internal Medicine | Alanis, | Results, Imaging | | 2020 | | | MD Petrona | | +--------+ + + + + from Last 3 Months Immunizations + + + + | Name | Administration Dates | Next Due | + + + + | INFLUENZA PF | 02/15/2019, 02/17/2018, 02/04/2017 | | | QUAD(PED/ADOL/ADULT) | | | | ,PSKT or VIAL | | | + + + + | INFLUENZA PF | 02/06/2016, 02/14/2015, 02/16/2014, | | | TRIVALENT(PED/ADOL/A | 02/13/2013, 02/02/2012, 02/03/2011 | | | DULT), PSKT | | | + + + + | INFLUENZA, | 02/06/2017, 02/08/2016, 02/26/2014 | | | UNSPECIFIED | | | | FORMULATION | | | + + + + | PNEUMOCOCCAL | 07/11/2015 | | | CONJUGATE 13-VALENT | | | | (PCV13) | | | + + + + | PNEUMOCOCCAL | 03/23/2010 | | | POLYSACCHARIDE | | | | 23-VALENT (PPSV23) | | | + + + + | TD PF (2 LF TETANUS) | 09/12/2004 | | | (ADOL/ADULT) | | | + + + + | TDAP, (ADOL/ADULT) | 06/17/2014, 10/27/2011, 04/21/2009 | | + + + + | ZOSTER, 1 DOSE | 02/18/2012 | | | (ZOSTAVAX) | | | + + + + Family History + + +------+ + | Medical History | Relation | Name | Comments | + + +------+ + | Arthritis | Brother | | | + + +------+ + | High blood pressure | Brother | | | + + +------+ + | Migraines | Brother | | | + + +------+ + | Arthritis | Father | | | + + +------+ + | Heart disease | Father | | | + + +------+ + | Allergies | Maternal | | | | | Grandfath | | | | | er | | | + + +------+ + | Arthritis | Maternal | | | | | Grandfath | | | | | er | | | + + +------+ + | Cancer | Maternal | | | | | Grandfath | | | | | er | | | + + +------+ + | Heart disease | Maternal | | | | | Grandfath | | | | | er | | | + + +------+ + | High blood pressure | Maternal | | | | | Grandfath | | | | | er | | | + + +------+ + | Kidney disease | Maternal | | | | | [...] | | + + +------+ + | High blood pressure | Maternal | | | | | Grandmoth | | | | | er | | | + + +------+ + | Stroke | Maternal | | | | | Grandmoth | | | | | er | | | + + +------+ + | Thyroid disease | Maternal | | | | | Grandmoth | | | | | er | | | + + +------+ + | Allergies | Mother | | | + + +------+ + | Arthritis | Mother | | | + + +------+ + | Cancer | Mother | | | + + +------+ + | Fibromyalgia | Mother | | | + + +------+ + | High blood pressure | Mother | | | + + +------+ + | Osteoporosis | Mother | | | + + +------+ + | Thyroid disease | Mother | | | + + +------+ + | Allergies | Paternal | | | | | Grandfath | | | | | er | | | + + +------+ + | Arthritis | Paternal | | | | | Grandfath | | | | | er | | | + + +------+ + | Heart disease | Paternal | | | | | Grandfath | | | | | er | | | + + +------+ + | High blood pressure | Paternal | | | | | [...] | | + + +------+ + | Breast cancer | Paternal | | | | | Grandmoth | | | | | er | | | + + +------+ + | Heart disease | Paternal | | | | | Grandmoth | | | | | er | | | + + +------+ + | High blood pressure | Paternal | | | | | [...] | | + + +------+ + | Migraines | Sister | | | + + +------+ + | Seizures | Sister | | | + + +------+ + | Arthritis | Son | | | + + +------+ + | High blood pressure | Son | | | + + +------+ + | Renal failure | Son | | | + + +------+ + + +------+ + + | Relation | Name | Status | Comments | + +------+ + + | Brother | | | | + +------+ + + | Father | | | car accident | | | | (Age | | | | | late | | | | | 20's) | | + +------+ + + | Maternal Grandfather | | | | + +------+ + + | Maternal Grandmother | | | | + +------+ + + | Mother | | | | | | | (Age | | | | | 64) | | + +------+ + + | Paternal Grandfather | | | | + +------+ + + | Paternal Grandmother | | | | + +------+ + + | Sister | | | | + +------+ + + | Son | | Alive | | + +------+ + + | Son | | Alive | | + +------+ + + Social History + + + [...] + + + | Blood Pressure | 90/56 | 12/21/2019 9:01 AM | | | | | PDT | | + + + + + | Pulse | 67 | 12/21/2019 9:01 AM | | | | | PDT | | + + + + + | Temperature | 36.7 C (98.1 F) | 12/21/2019 10:56 AM | | | | | PDT | | + + + + + | Respiratory Rate | 18 | 12/21/2019 9:01 AM | | | | | PDT | | + + + + + | Oxygen Saturation | 97% | 12/21/2019 9:01 AM | | | | | PDT | | + + + + + | Inhaled Oxygen | - | - | | | Concentration | | | | + + + + + | Weight | 99.5 kg (219 lb 5.7 | 12/21/2019 10:56 AM | | | | oz) | PDT | | + + + + + | Height | 167.6 cm (5' 6") | 12/21/2019 10:56 AM | | | | | PDT | | + + + + + | Body Mass Index | 35.41 | 12/21/2019 10:56 AM | | | | | PDT | | + + + + + Plan of Treatment +--------+---------+ + + + | Date | Type | Specialty | Care Team | Description | +--------+---------+ + + + | 09/03/ | Office | Internal Medicine | Alanis, | | | 2019 | Visit | | MD Petrona | | | | | | [address] | | | | | | [place] [address] | | | | | | [phone] | | | | | | | | +--------+---------+ + + + + + + + + | Health Maintenance | Due Date | Last | Comments | | | | Done | | + + + + + | Med Mgmt: Vit D | | | | | | 9 | | | + + + + + | Medication | | | | | Management | 9 | | | + + + + + | Adult Annual | | | | | Wellness Visit | 5 | | | + + + + + | Vaccine: Influenza | | 02/16/20 | | | (#1) | 0 | 19, | | | | | 02/18/20 | | | | | 18, | | | | | 02/07/20 | | | | | 17, | | | | | Addition | | | | | al | | | | | history | | | | | exists | | + + + + + | Breast Cancer | | 03/01/20 | | | Screening | 0 | 18 | | + + + + + | Med Mgmt: Cr | | 04/18/20 | | | | 0 | 19, | | | | | 02/16/20 | | | | | 19, | | | | | 11/16/19 | | | | | 19, | | | | | Addition | | | | | al | | | | | history | | | | | exists | | + + + + + | Med Mgmt: K | | 04/18/20 | | | | 0 | 19, | | | | | 02/16/20 | | | | | 19, | | | | | 11/16/19 | | | | | 19, | | | | | Addition | | | | | al | | | | | history | | | | | exists | | + + + + + | Med Mgmt: Na | | 04/18/20 | | | | 0 | 19, | | | | | 02/16/20 | | | | | 19, | | | | | 11/16/19 | | | | | 19, | | | | | Addition | | | | | al | | | | | history | | | | | exists | | + + + + + | Med Mgmt: eGFR | | 04/18/20 | | | | 0 | 19, | | | | | 02/16/20 | | | | | 19, | | | | | 11/16/19 | | | | | 19, | | | | | Addition | | | | | al | | | | | history | | | | | exists | | + + + + + | Med Mgmt: TSH | | 07/18/19 | | | | 1 | 20, | | | | | 11/16/19 | | | | | 19, | | | | | 11/18/19 | | | | | 18, | | | | | Addition | | | | | al | | | | | history | | | | | exists | | + + + + + | Cervical Cancer | | | Postponed from 1989 ([facility] [address]) | | Screening (Pap) | 1 | | | + + + + + | Statin Therapy | | | Postponed from 02/27/2015 ([facility]) | | (optimal intensity) | 1 | | | + + + + + | Vaccine: Zoster (2 | | 02/18/20 | Postponed from 04/14/2012 ([facility]) | | of 3) | 1 | 12 | | + + + + + | Vaccine: | | 06/17/19 | | | Dtap/Tdap/Td (4 - | 5 | 15, | | | Td) | | 10/27/19 | | | | | 12, | | | | | 04/21/20 | | | | | 09, | | | | | Addition | | | | | al | | | | | history | | | | | exists | | + + + + + | Colorectal Cancer | | 12/19/19 | | | Screening | 8 | 18, | | | (Colonoscopy) | | 12/19/19 | | | | | 18, | | | | | 12/19/19 | | | | | 18 | | + + + + + | Hepatitis C | Completed | 12/11/19 | | | Screening | | 18 | | + + + + + Procedures + +--------+ + + + | Procedure Name | Priori | Date/Time | Associated Diagnosis | Comments | | | ty | | | | + +--------+ + + + | VITAMIN B-12 | Routin | 12/21/2019 | B12 deficiency | Results for this | | | e | 10:00 AM | | procedure are in the | | | | PDT | | results section. | + +--------+ + + + | DIAGNOSTIC REPORT - | | 12/21/2019 | | Results for this | | EXTERNAL SCAN | | 12:00 AM | | procedure are in the | | | | PDT | | results section. | + +--------+ + + + | IMAGING REPORT - | | 12/13/2019 | | Results for this | | EXTERNAL SCAN | | 12:00 AM | | procedure are in the | | | | PDT | | results section. | + +--------+ + + + | IMAGING REPORT - | | 11/17/2019 | | Results for this | | EXTERNAL SCAN | | 12:00 AM | | procedure are in the | | | | PDT | | results section. | + +--------+ + + + | XR TOE LEFT 2 + VW | Routin | 11/15/2019 | Toe pain, chronic, | Results for this | | | e | 10:42 AM | left | procedure are in the | | | | PDT | | results section. | + +--------+ + + + from Last 3 Months Results Vitamin B-12 (12/21/2019 10:00 AM PDT) + + + + + + | Component | Value | Ref Range | Performed | Pathologist | | | | | At | Signature | + + + + + + | VITAMIN | 1,456 (H)Comment: | 156 - 672 pg/mL | [facility] | | | B-12 | DEFICIENT: | | [facility] | | | | <145 | | [facility] | | | | pg/mLINDETERMINATE: | | [facility] - | | | | 145-180 pg/mL | | LABORATORY | | + + + + + + + + | Specimen | + + | Blood | + + + + + + + | Performing | Address | City/State/Zipcode | Phone Number | | Organization | | | | + + + + + | [id number] | [address] | [place], [place] | [phone] | | [facility] | | [address] | | | - LABORATORY | | | | + + + + + DIAGNOSTIC REPORT - EXTERNAL SCAN (12/21/2019 12:00 AM PDT) + + + | Narrative | Performed At | + + + | Ordered by an | | | unspecified provider. | | + + + IMAGING REPORT - EXTERNAL SCAN (12/13/2019 12:00 AM PDT)Only the most recent of 2 results w angelica the time period is included. + + + | Narrative | Performed At | + + + | Ordered by an | | | unspecified provider. | | + + + XR Toe Left 2 + Vw (11/15/2019 10:42 AM PDT) + + | Specimen | + + | | + + + + + | Impressions | Performed At | + + + | Minimally displaced fracture with intra-articular extension | [facility] | | involving the medial head of the first distal phalanx with | | | surrounding soft tissue swelling. Dictated and Signed by: Viraj | | | MD Manuel Electronically signed: 11/15/2019 11:17 AM | | + + + + + + | Narrative | Performed At | + + + | XR TOE LEFT 2 + VW 11/15/2019 10:42 AM HISTORY: Pain in R big toe, | [facility] | | h/o trauma & fx but not recent. COMPARISON: 09/15/2018 | | | FINDINGS: Postsurgical changes are seen related to fusion of the | | | second through fourth PIP joints. Minimally displaced fracture with | | | intra-articular extension involving the medial head of the first | | | distal phalanx with surrounding soft tissue swelling. Remaining bones | | | soft tissues and no acute abnormalities. | | + + + + + | Procedure Note | + + | Ollie Neff Results In - 11/15/2019 11:20 AM PDT XR TOE LEFT 2 + VW 11/15/2019 10:42 AM | | | | HISTORY: Pain in R big toe, h/o trauma & fx but not recent. | | | | COMPARISON: 09/15/2018 | | | | FINDINGS: | | Postsurgical changes are seen related to fusion of the second through fourth PIP | | joints. Minimally displaced fracture with intra-articular extension involving | | the medial head of the first distal phalanx with surrounding soft tissue | | swelling. Remaining bones soft tissues and no acute abnormalities. | | | | IMPRESSION: | | Minimally displaced fracture with intra-articular extension involving the medial | | head of the first distal phalanx with surrounding soft tissue swelling. | | | | Dictated and Signed by: Viraj Jackson MD | | Electronically signed: 11/15/2019 11:17 AM | + + + +---------+ + + | Performing | Address | City/State/Zipcode | Phone Number | | Organization | | | | + +---------+ + + | [facility] | | | | + +---------+ + + from Last 3 Months Insurance + +--------+ +--------+ +---------+--------+ | Payer | Benefi | Subscriber | Effect | Phone | Address | Type | | | t Plan | ID | gerda | | | | | | / | | Dates | | | | | | Group | | | | | | + +--------+ +--------+ +---------+--------+ | MEDICARE | MEDICA | [id number] | 07/16/19 | [phone] | | Medica | | | RE | | 03-Pre | 5 | | re | | | PART A | | sent | | | | | | AND B | | | | | | + +--------+ +--------+ +---------+--------+ | [employer] | MODA | [id number] | 06/16/19 | [phone] | | Medica | | MEDICAID HMO | HEALTH | | 20-Pre | 1 | | id | | | MDCD | | sent | | | | | | [place] | | | | | | + +--------+ +--------+ +---------+--------+ + +--------+ +--------+ + + | Guarantor Name | Accoun | Relation to | Date | Phone | Billing Address | | | t Type | Patient | of | | | | | | | | | | + +--------+ +--------+ + + | Belinda Meehan | Person | Self [birth year] | | | al/Fam | | 1960 | [phone] | [place] [address] | | | bijan | | | 0 (Home) | | + +--------+ +--------+ + + Advance Directives + + + + + | Type | Date Recorded | Patient | Explanation | | | | Crew Leader Gluing | | + + + + + | Power of | | | | | Electrician Manager | | | | + + + + + | Advance | 10/14/2018 10:09 | | | | Directive | AM | | | + + + + +
--- OUTSIDE RECORDS SUMMARY | ~2020-01-25 | XMS | Encounter Summary ---
Demographics + + + | Address | [address] | | | [place] [address] | + + + | Home Phone | | + + + | Preferred Language | Unknown | + + + | Marital Status | Single | + + + | Jehovah'S Witness Affiliation | ADV | + + + [...] Team Providers + +------+ + | Care Solar Field Service Technician Name | Role | Phone | + +------+ + PCP | Unavailable | + +------+ + Encounter Details +--------+ + + + + | Date | Type | Department | Care Team | Description | +--------+ + + + + | 02/18/ | Abstract | General Surgery | Chris Padgett, | | | 2004 | | [address] | [address] | | | | | Loop Mailcode: | [address] | | | | | [id number] [facility] | [place], [place] | | | | | [address] | [address] | | | | | [place], [place] | [phone] | | | | | [address] | | | | | | [phone] | | | +--------+ + + + [...]
--- OUTSIDE RECORDS SUMMARY | ~2020-01-25 | XMS | Encounter Summary ---
Demographics + + + | Address | [address] | | | [place] [address] | + + + | Home Phone | | + + + | Preferred Language | Unknown | + + + | Marital Status | Single | + + + | Lutheran Affiliation | ADV | + + + | Race | White | + + + | Ethnic Group | Not or | + + + Author + + + | Author | [facility] | + + + | Organization | [facility] | + + + | [...] Team Providers + +------+ + | Care Recreational Programs Director Name | Role | Phone | + +------+ + | Pedrito Gutierrez MD | PCP | | + +------+ + Encounter Details +--------+---------+ + + + | Date | Type | Department | Care Team | Description | +--------+---------+ + + + | 05/18/ | Office | [facility] | Caitlin Rivera, | Cervicalgia; | | 2006 | Visit | Rheumatology [address] | RETIREMENT BENEFITS SPECIALIST | Fibromyalgia; | | | | [address] | | Fibromyalgia | | | | Mailcode: OPC5 | | | | | | Outpatient Clinic | | | | | | [facility], | | | | | | [place] [address] | | | | | | [phone] | | | +--------+---------+ + + + [...] + + + | Blood Pressure | 120/90 | 05/18/2007 8:25 AM | | | | | PST | | + + + + + | Pulse | 70 | 05/18/2007 8:25 AM | | | | | PST | | + + + + + | Temperature | - | - | | + + + + + | Respiratory Rate | - | - | | + + + + + | Oxygen Saturation | - | - | | + + + + + | Inhaled Oxygen | - | - | | | Concentration | | | | + + + + + | Weight | 85.3 kg (188 lb) | 05/18/2007 8:25 AM | | | | | PST | | + + + + + | Height | - | - | | + + + + + | Body Mass Index | 27.76 | 03/31/2007 9:15 AM | | | | | PDT | | + + + + + documented in this encounter Progress Notes Caitlin Rivera - 05/18/2007 4:02 PM PST Subjective: I periodically see Belinda Meehan for Fibromyalgia. She has had a left knee replacement and notes much less pain and better function in that knee except for pain that occurs with PT. She is seeing Miranda Lambert in pain management. Dr. Gutierrez has taken over most of her pain management meds. There has been a glitch however and she has been out of ox ycontin for 2 weeks. Some of this is due to the pharmacy needing to order it. She has a lot of neck pain and notes periodic hand clumsiness. SHe has had poor balance and falls for years. She would like TP injections today. Current outpatient prescriptions Medication Oxycodone-Acetaminophen 7.5-325 mg Oral Tablet Oxcarbazepine (TRILEPTAL) 150 mg Oral Tablet Cyanocobalamin 1,000 mcg/mL Injection Syringe Multivitamin Oral Tablet Risedronate Sodium (ACTONEL) 35 mg Oral Tablet Ferrous Sulfate 325 (65) mg Oral Tablet Docusate Sodium 100 mg Oral Tablet Oxycodone HCl (OXYCONTIN) 40 mg Oral Tablet Sustained Release 12 hr Omeprazole (PRILOSEC) 20 mg Oral Capsule, Delayed Release(E.C.) LEVOTHYROXINE OR Furosemide (LASIX) 80 mg OR TABS POTASSIUM CHLORIDE SR 20 MEQ TAB, PARTICLES/CRYSTALS PROMETHAZINE 25 MG TAB CALCIUM 600 WITH VITAMIN D OR VITAMIN C 500 MG CHEWABLE TAB Physical Exam: BP 120/90 | Pulse 70 | Wt 85.276 kg (188 lbs) She had myofascial trigger points at the bilateral trapezius, levator scapula, and bilat up per glut max. Neurologically, sways and feels of balance with Romberg. Tandem gait: unable- falls off line. Strength 4-5/5 for all major deltoids, biceps, triceps. Refuge Worker slightly weak. Tone is normal. There is no tremor. DTRs: Biceps R-2 L 2, triceps R- 2-.2 brachioradialis R 3, L- 3 , no inversion Patellae R- 2, L- not done. Luo's negative Babinski and Clonus a re negative. Plan: 1. I have been interested in this group of patients who may have cervical cord impingement, cervical canal stenosis, or positional cervical cord impingement . A prospective study by David in 1998 demonstrated the development of FM in 22% of whipl cody MVA patients vs. 0% of femur fracture patients. The thought is that pressure on the cerv ical cord can be a potent autonomic nervous system arousal agent leading to the inability to achieve deep stage 3-4 restorative sleep. [place] pain and muscle trigger points follow. Chronic sympathetic nervous system activation has adverse effects on the postural muscles, a nd on the HPA axis leading to poor growth hormone release and may lead to the problems these patients have with dopamine neurotransmission. I have ordered a flexion, extension, and amrik tral cervical spine MRI to be done at [facility]. A few of these patients have been surgical nacho dates to decompress the cord. Many have benefitted from intense cervical spine specific phys ical therapy. It depends on the degree of cord impingement. We will also keep in mind that c ervical discs and facets can also be potent peripheral pain generators. 2. All the trigger points listed in the objective section were injected using 0.5% procain e for a total of 12 cc's. The injections were well tolerated, muscles softened and after ca re instructions were given. 3. I have given her some oxycodone 7.5/325 #60 to get her by. She does not have a pain cont ract with anyone at this time. I do not forsee doing this again. I am hoping she can smooth out her prescription system over the next month. 4. rtc 2 months. 60 minute visit. Orders Placed This Encounter MRI SPINE CERVICAL WO CONTRAST Order Comments: Wt on (05/18/2007) 85.276 kg (188 lbs) Order Specific Question: RAD - PACEMAKER Answer: No Order Specific Question: RAD - ANEURYSM CLIP Answer: No Order Specific Question: RAD - METAL IN EYES Answer: No Order Specific Question: DOES PAT WEIGH MORE THAN [id number]? Answer: No Order Specific Question: RAD - DIALYSIS Answer: No Order Specific Question: PEDS SEDATION REQUIRED Answer: No OXYCODONE-ACETAMINOPHEN 7.5 MG-325 MG TAB Electronically signed by Caitlin Rivera at 007 4:11 PM PSTdocumented in this encounter Plan of Treatment + + +--------+ + + | Name | Type | Priori | Associated Diagnoses | Order Schedule | | | | ty | | | + + +--------+ + + | DE INJECT TRIGGER | Procedures | Routin | Fibromyalgia | Ordered: 05/18/2007 | | POINTS, > 3 | | e | Fibromyalgia | | + + +--------+ + + documented as of this encounter Procedures + +--------+ + + + | Procedure Name | Priori | Date/Time | Associated Diagnosis | Comments | | | ty | | | | + +--------+ + + + | MRI SPINE CERVICAL | Routin | 05/25/2007 | Cervicalgia | Results for this | | WO CONTRAST | e | 4:06 PM | | procedure are in the | | | | PST | | results section. | + +--------+ + + + documented in this encounter Results MRI SPINE CERVICAL WO CONTRAST (05/25/2007 4:06 PM PST) + + + + + + | Component | Value | Ref Range | Performed | Pathologist | | | | | At | Signature | + + + + + + | MR CERVICAL | Radiologist 1: SEBASTIEN, | | | | | SPINE WO | Joanna JIMENESEXAM: MRI | | | | | CONTRAST | cervical spine without | | | | | | contrastFlexion and | | | | | | Extension viewsHISTORY: | | | | | | CervicalgiaTECHNIQUE: | | | | | | Images through the | | | | | | cervical spine, 1.0 | | | | | | Mary magnet,without | | | | | | contrastSagittal T1 and | | | | | | T2 weighted images in | | | | | | the neutral | | | | | | position.Axial FSE T2, | | | | | | FFE T2, and balanced FFE | | | | | | T2 images through | | | | | | thecervical | | | | | | spineSagittal T2 images | | | | | | in flexion and | | | | | | extension.COMPARISON: No | | | | | | priorFINDINGS: Marrow | | | | | | signal is within normal | | | | | | limits. No cord | | | | | | signalabnormalities. | | | | | | Craniocervical | | | | | | junction | | | | | | unremarkable.C2/3: | | | | | | UnremarkableC3/4: | | | | | | Minimal right-sided | | | | | | uncovertebral arthrosis | | | | | | with minimalnarrowing of | | | | | | the right neural | | | | | | foramen.C4/5: Mild | | | | | | right-sided | | | | | | uncovertebral arthrosis | | | | | | with mild narrowingof | | | | | | the right neural | | | | | | foramen.C5/6: Minimal | | | | | | bilateral uncovertebral | | | | | | arthrosis without | | | | | | spinalstenosis or | | | | | | foraminal stenosis.C6/7: | | | | | | UnremarkableC7/T1: | | | | | | UnremarkableDespite | | | | | | multiple scan attempts | | | | | | extension images are | | | | | | compromised bypatient | | | | | | motion and thus accurate | | | | | | measurements cannot be | | | | | | obtained. | | | | | | Flex | | | | | | Neutral | | | | | | | | | | | | ExtendC2/3: | | | | | | 1.19 cm | | | | | | 1.11 cm | | | | | | cmC3/4: | | | | | | 1.27 cm | | | | | | 1.21 cm | | | | | | cmC4/5: | | | | | | 1.31 cm | | | | | | 1.29 cm | | | | | | cmC5/6: | | | | | | 1.27 cm | | | | | | 1.20 cm | | | | | | | | | | | | cmC6/7: | | | | | | 1.31 cm | | | | | | 1.24 cm | | | | | | cmC7/T1: | | | | | | 1.23 cm | | | | | | 1.24 cm | | | | | | cmIMPRESSION:1. | | | | | | Minimal uncovertebral | | | | | | arthrosis primarily at | | | | | | C3-4, C4-5, andC5-6. | | | | + + + + + + + + | Specimen | + + | | + + + +---------+ + + | Performing | Address | City/State/Zipcode | Phone Number | | Organization | | | | + +---------+ + + | [place] [facility] | | | | [facility] | | | | + +---------+ + + documented in this encounter Visit Diagnoses + + | Diagnosis | + + | Cervicalgia | + + | Fibromyalgia Mylagia and myositis, unspecified | + + documented in this encounter"
--- OUTSIDE RECORDS SUMMARY | ~2020-01-25 | XMS | Encounter Summary ---
Demographics + + + | Address | [address] | | | [place] [address] | + + + | Home Phone | | + + + | Preferred Language | Unknown | + + + | Marital Status | | + + + | Jainism Affiliation | 1001 | + + + | Race | Unknown | + + + | Ethnic Group | Unknown | + + + Author + + + | Author | [facility] | | | and [place] | + + + | Organization | [facility] | | | and [...] Team Providers + +------+ + | Care Loss Prevention/Safety District Manager Name | Role | Phone | + +------+ + | John Thapa | PCP | | | MD | | | + +------+ + Reason for Visit + + + | Reason | Comments | + + + | Follow-up | 3 month | + + + Encounter Details +--------+---------+ + + + | Date | Type | Department | Care Team | Description | +--------+---------+ + + + | 08/14/ | Office | [facility] | Alanis, | Situational insomnia | | 2020 | Visit | MEDICINE [address] | MD John | (Primary Dx); | | | | [facility], | [address] [facility] | Situational | | | | [place] [address] | [place] [address] | depression | | | | [phone] | [phone] | | | | | | | [...] + + + | Blood Pressure | 100/60 | 08/15/2019 9:02 AM | | | | | PST | | + + + + + | Pulse | 58 | 08/15/2019 9:02 AM | | | | | PST | | + + + + + | Temperature | 36.7 C (98.1 F) | 08/15/2019 9:02 AM | | | | | PST | | + + + + + | Respiratory Rate | 16 | 08/15/2019 9:02 AM | | | | | PST | | + + + + + | Oxygen Saturation | 98% | 08/15/2019 9:02 AM | | | | | PST | | + + + + + | Inhaled Oxygen | - | - | | | Concentration | | | | + + + + + | Weight | 92.7 kg (204 lb 5.9 | 08/15/2019 9:02 AM | | | | oz) | PST | | + + + + + | Height | - | - | | + + + + + | Body Mass Index | 31.07 | 01/17/2019 9:53 AM | | | | | PDT | | + + + + + documented in this encounter Progress Notes John Thapa MD - 08/15/2019 9:00 AM PSTFormatting of this note might be d ifferent from the original. CHIEF COMPLAINT Chief Complaint Patient presents with Follow-up 3 month HPI Belinda Meehan is a 59 y.o. y/o female who presents today for several issues: She states she is dealing with insomnia and increased pain and some symptoms of depression due to the fact that she cannot sleep at night. She lives in an apartment building and the person upstairs to her apartment is making a lot of noise at night making it hard for her to sleep. She states she has talked to the landlord but they have not been accommodating to er yet. She is asking for a letter to support her in her attempt to get quiet time at night so she can rest. She has a multitude of health issues as below and sleep deprivation can certainly aggravate them. She is not suicidal but she states she needs feeling depressed because of this. PHQ9 Depression scale: Date of Last Screening Total Score 10 (08/15/19934) (Printable questionnaires in Arabic ) Interpretation of Total Score: 1-4 = Minimal depression, 5-9 = Mild depression, 10-14 = Mod erate depression, 15-19 = Moderately severe depression, 20-27 = Severe depression 1. 1. Little interest or pleasure in doing things?: More than half the days (08/15/19) 2. 2. Feeling down, depressed, or hopeless?: Several days (08/15/19934) 3. 3. Trouble falling or staying asleep, or sleeping too much?: Nearly every day (934) 4. 4. Feeling tired or having little energy?: More than half the days (08/15/19934) 5. 5. Poor appetite or overeating?: Several days (08/15/19934) 6. 6. Feeling bad about yourself - or that you are a failure or have let yourself or you r family down?: Several days (08/15/19934) 7. 7. Trouble concentrating on things, such as reading the newspaper or watching televis ion?: Not at all (08/15/19934) 8. 8. Moving or speaking so slowly that other people could have noticed. Or the opposite - being so fidgety or restless that you have been moving around a lot more than usual?: Not at all (08/15/19934) 9. 9. Thoughts that you would be better off , or of hurting yourself in some way?: N ot at all (08/15/19934) 10. If you checked off any problems, how difficult have these problems made it for you to do your work, take care of things at home, or get along with other people?: Very difficult ( 08/15/19934) ASSESSMENT & PLAN 1. Situational insomnia 2. Situational depression -I wrote a letter for her to support her endeavors to have quiet time at night implemented in her apartment building so she can rest. Sleep deprivation is not going to help her healt h issues. -Offered pharmacotherapy for depression but at this point she states she is not interested in that. REVIEW OF SYSTEMS Constitutional: No Weight Change, No Fever, No Chills, No Malaise. ENT/Mouth: No Hearing Changes, No Ear Pain, No Nasal Congestion, No Sinus Pain, No Hoarsen ess, No sore throat, No Rhinorrhea, No Swallowing Difficulty. Eyes: No Eye Pain, No Vision Changes. Cardiovascular: No Chest Pain, No Dyspnea on Exertion. Respiratory: No Cough, No SOB Gastrointestinal: No Nausea, No Vomiting, No Pain. Genitourinary: No Dysuria, No Urinary Frequency, No Hematuria. Musculoskeletal: No Arthralgias, No Myalgias. Skin: No Rashes, No Skin Lesions Neuro: No Weakness, No Numbness, No Headache. Psych: No Anxiety/Panic, situational depression. Heme/Lymph: No Bruising, No Bleeding. Endocrine: No Polyuria, No Polydipsia, No Temperature Intolerance. PHYSICAL EXAM VITAL SIGNS: BP 100/60 | Pulse 58 | Temp 36.7 C (98.1 F) (Temporal) | Resp 16 | Wt 92.7 kg (204 lb 5.9 oz) | LMP (LMP Unknown) | SpO2 98% | No | BMI 31.07 k g/m Constitutional: Well developed, No acute distress, Pleasant female. Cardiovascular: Regular rate & rhythm, No murmurs, No rubs, No gallops. No lower extremitie s edema. Thorax & Lungs: Normal chest, No respiratory distress, No crackles, wheezing, or rubs. Skin: Warm, No erythema, No rash. Neurologic: Alert & oriented x 3, No focal deficits noted. Psychiatric: Affect normal, Judgment normal, See PHQ 9 questionnaire above PAST MEDICAL HISTORY Past Medical History: Diagnosis Date Anemia Anxiety Arthritis Atypical chest pain Benign essential hypertension Blind left eye Cervical radiculopathy Chronic bilateral low back pain with left-sided sciatica Chronic low back pain 01/04/2015 Chronic neck pain 01/04/2015 Chronic pain Chronic venous insufficiency Coccydynia Common migraine COPD (chronic obstructive pulmonary disease) ([facility]) Depression Diarrhea Dumping syndrome Fall at home Fatigue fracture of vertebra Fibromyalgia Full dentures GERD (gastroesophageal reflux disease) Glaucoma Hyperparathyroidism (HCC) Hypothyroidism IBS (irritable bowel syndrome) Idiopathic scoliosis Leg edema Low back pain Lumbar postlaminectomy syndrome Lumbar radiculopathy primarily right 01/04/2015 Meniere syndrome Migraine with aura Migraines Muscle cramping Muscle spasm Myalgia Nausea Nonalcoholic hepatosteatosis Obesity Opioid dependence (HCC) Orthostatic hypotension OLIVER (obstructive sleep apnea) Osteoarthritis, generalized Osteopenia Osteoporosis Palpitations Peripheral neuropathy Rheumatoid arthritis (HCC) Right arm [...] Arthritis Son High blood pressure Son Renal failure Son SOCIAL HISTORY Social History Socioeconomic History Marital status: Spouse name: Not on file Number of children: 2 Years of education: Not on file Highest education level: Not on file Tobacco Use Smoking status: Former Smoker Packs/day: 0.50 Years: 30.00 Pack years: 15.00 Types: Cigarettes Last attempt to quit: 04/15/2014 Years since quittin.3 Smokeless tobacco: Never Used Tobacco comment: stopped smoking Substance and Sexual Activity Alcohol use: No Alcohol/week: 0.0 standard drinks Drug use: No Sexual activity: Never SURGICAL HISTORY Past Surgical History: Procedure Laterality Date ADENOIDECTOMY APPENDECTOMY BREAST LUMPECTOMY Left 2002 CARPAL TUNNEL RELEASE 2002 SECTION CHOLECYSTECTOMY 2004 COLONOSCOPY N/A 12/18/2017 Procedure: COLONOSCOPY; Surgeon: Luther Brito MD; Location: [facility] DILATION AND CURETTAGE OF UTERUS ELBOW SURGERY FINGER TRIGGER RELEASE 2002 FINGER TRIGGER RELEASE 2009 GASTRIC BYPASS SURGERY 2004 HYSTERECTOMY 05/14/1980 JOINT REPLACEMENT Bilateral 2007 2007 KNEE ARTHROSCOPY 2005 LAPAROSCOPY 01/27/2015 LAPAROTOMY 2008 ROTATOR CUFF REPAIR 2005 SPINE SURGERY TONSILLECTOMY 1964 UPPER GASTROINTESTINAL ENDOSCOPY N/A 12/18/2017 Procedure: EGD; Surgeon: Luther Brito MD; Location: [facility] CURRENT MEDICATIONS Current Outpatient Medications Medication Sig Dispense Refill albuterol 90 mcg/puff inhaler Inhale 2 puffs into the lungs every 6 hours as needed for Wheezing, Shortness of Breath or Increased Work of Breathing (cough). 1 Inhaler 5 ascorbic acid (VITAMIN C) 500 mg tablet Take 500 mg by mouth Daily. cholecalciferol (VITAMIN D-3) 5000 UNITS TABS Take 5,000 Units by mouth Daily. COMBIGAN 0.2-0.5 % ophthalmic solution 0 diphenoxylate-atropine (LOMOTIL) 2.5-0.025 mg per tablet Take 1 tablet by mouth 6 times daily. 180 tablet 2 EPINEPHrine (EPIPEN) 0.3 mg/0.3 mL injection (ER Prepack) Inject into the muscle once as needed for Anaphylaxis. furosemide (LASIX) 80 mg tablet take 1 tablet by mouth twice a day 180 tablet 2 gabapentin (NEURONTIN) 300 mg capsule take 3 capsules by mouth three times a day 270 ca psule 5 HYDROcodone-acetaminophen (NORCO) 10-325 mg per tablet Take 1 tablet by mouth every 4 h ours as needed for Pain. Incontinence Supplies MISC As directed 100 each 11 levothyroxine (SYNTHROID) 75 mcg tablet take 1 tablet by mouth every morning BEFORE KIERSTEN AKFAST 90 tablet 2 loperamide (IMODIUM) 2 mg capsule take 4 capsules by mouth every morning and 2 capsules by mouth every evening 180 capsule 2 meclizine (ANTIVERT) 25 mg tablet take 1 tablet by mouth three times a day if needed fo r dizziness 90 tablet 0 methocarbamol (ROBAXIN) 750 mg tablet take 1 tablet by mouth twice a day 60 tablet 3 metoprolol tartrate (LOPRESSOR) 25 mg tablet take 1/2 tablet by mouth twice a day 30 ta blet 11 Multiple Vitamins-Minerals (COMPLETE WOMENS) TABS 1 tablet by mouth twice daily naloxone (NARCAN) 0.4 mg/mL injection Inject 1 mL under the skin as needed for Apnea or Decreased Responsiveness. 1 mL 4 nitroglycerin (NITROSTAT) 0.[address] 1 tablet under the tongue every 5 lupe nader as needed for Chest pain. 25 tablet 11 omeprazole (PRILOSEC) 20 mg capsule take 1 capsule by mouth twice a day 60 capsule 11 ondansetron (ZOFRAN ODT) 4 mg disintegrating tablet Take 1 tablet by mouth every 8 hour s as needed for Nausea. 270 tablet 2 potassium chloride (KLOR-CON M20) 20 mEq ER tablet take 3 tablets by mouth every mornin g and 2 every evening with food 450 tablet 3 sucralfate (CARAFATE) 1 g tablet take 1 tablet by mouth four times a day if needed 120 tablet 1 SUMAtriptan (IMITREX) 100 mg tablet Take 1 tablet by mouth as needed for Migraine. Take 1 tab by mouth on on-set of Migraine, may repeat in 2 hours if needed. Max 2 tabs/ 24 hours 12 tablet 5 topiramate (TOPAMAX) 50 MG tablet take 2 tablets by mouth every 12 hours for MIGRAINE P REVENTION 228 tablet 5 torsemide (DEMADEX) 5 mg tablet take 1 tablet by mouth 5 TIMES A WEEK 25 tablet 5 traZODone (DESYREL) 50 mg tablet Take 1 tablet by mouth nightly as needed for Insomnia. 30 tablet 3 zinc sulfate 220 mg capsule Take 1 capsule by mouth Daily. 30 capsule 1 zoledronic acid (RECLAST) 5 mg/100 mL SOLN Inject 5 mg into the vein once. YEARLY Current Facility-Administered Medications Medication Dose Route Frequency Provider Last Rate Last Dose cyanocobalamin (VITAMIN B-12) injection 1,000 mcg 1,000 mcg Intramuscular Q30 Days [facility] steve-Russell Thapa MD 1,000 mcg at 08/15/19 0920 ALLERGIES Allergies Allergen Reactions Ensure Diarrhea Food Diarrhea Lactose Zmtjrxlgvo-Tmm-Spkk-Codeine Other (See Comments) Balance problems Codeine Sulfate Nausea Only Food Allergy Formula Diarrhea Ensure Levofloxacin Hives, Itching and Rash Butalbital Ropinirole Amitriptyline Hcl Other (See Comments) Confused and questionable for seizures Ayoigxljoy-Ylnr-Ethhakyl Rash duplicate Elddcgtyzu-Wrfl-Kijxqcsi Hives and Rash Cephalexin Hives Ciprofloxacin Hives and Rash Clarithromycin Hives and Rash Clindamycin Hcl Hives and Rash Doxycycline Rash Duloxetine Other (See Comments) Migraines and nausea Ketorolac Hives Levofloxacin Hives and Rash Morphine Swelling Penicillins Hives and Rash Ropinirole Hcl Hives Sulfamethoxazole-Trimethoprim Hives and Rash Tramadol Hcl Nausea Only FOLLOW-UP No follow-ups on file. Notes: 1. Parts of this documentwere created using algrano speech recognition software. As a resu lt, there may be unintended word spelling errors. Every attempt was made to correct the di ctation. doshantelle colin in this encounter Miscellaneous Notes Addendum Note - John Thapa MD - 08/15/2019 9:00 AM PST Addended by: JOHN HOPKINS on: 08/15/2019 10:11 AM Modules accepted: Level of Service Kecia barrera in this encounter Plan of Treatment +--------+---------+ + + + | Date | Type | Specialty | Care Team | Description | +--------+---------+ + + + | 02/15/ | Office | Internal Medicine | Alanis, | | 2019 | Visit | | MD John | | | | | | [address] | | | | | | [place] [address] | | | | | | [phone] | | | | | | | | +--------+---------+ + + + documented as of this encounter Visit Diagnoses + + | Diagnosis | + + | Situational insomnia - Primary Transient disorder of initiating or maintaining sleep | + + | Situational depression | + + documented in this encounter [...] | | | | First dose on [facility] 10/15/17 at 1215 | | | [...]
--- OUTSIDE RECORDS SUMMARY | ~2020-01-25 | XMS | Encounter Summary ---
Demographics + + + | Address | [address] | | | [place] [address] | + + + | Home Phone | | + + + | Preferred Language | Unknown | + + + | Marital Status | | + + + | Mandaen Affiliation | 1001 | + + + | Race | Unknown | + + + | Ethnic Group | Unknown | + + + Author + + + | Author | [facility] | | | and [place] | + + + | Organization | [facility] | | | [...] Team Providers + +------+ + | Care Typesetter Apprentice Name | Role | Phone | + +------+ + | Petrona Thapa | PCP | | | MD | | | + +------+ + Reason for Visit + +--------+ + | Reason | Onset | Comments | | | Date | | + +--------+ + | Paperwork | 03/02/ | | | | 2016 | | + +--------+ + Encounter Details +--------+ + + + + | Date | Type | Department | Care Team | Description | +--------+ + + + + | 03/02/ | Telephone | [facility] | Alanis, | Paperwork | | 2016 | | MEDICINE [address] [place] [address] | MD Petrona | | | | | [place], | [address] [facility] | | | | | [place] [address] | [place] [address] | | | | | [phone] | [phone] | | | | | | | [...] this encounter Miscellaneous Notes Telephone Encounter - Tamara Elliott RN - 03/02/2017 10:53 AM PDTSpoke with patient an d explained the process for referrals in the [facility] system. She will wait a couple days and call the pain clinic or us to see where things are in the p rocess. She is anxious but accepting of the delays r/t insurance authorization. elephone Alan Ennis - 03/02/2017 10:00 AM PDTPatient calling on the status of refer ral. elephone Tuan Grimes - 03/02/2017 8:14 AM PDTContact/Caller: Belinda Contact Number: [phone] Provider/Nurse: Emmy Reason for Call: Pt calling in stating they got in contact [facility] and were advised they did not receive any paper work regarding pt. Please advise. Last Appointment: 02/23/17 Next Appointment: 04/27/17 documented in this encoun ter Plan of Treatment +--------+---------+ + + + | Date | Type | Specialty | Care Team | Description | +--------+---------+ + + + | 02/15/ | Office | Internal Medicine | Alanis, | | | 2019 | Visit | | MD Petrona | | | | | | [employer] [address] | | | | | | [place] [address] | | | | | | [phone] | | | | | | | | +--------+---------+ + + + documented as of this encounter Visit Diagnoses Not on filedocumented in this encounter"
--- OUTSIDE RECORDS SUMMARY | ~2020-01-25 | XMS | Encounter Summary ---
Demographics + + + | Address | [address] | | | [place] [address] | + + + | Home Phone | | + + + | Preferred Language | Unknown | + + + | Marital Status | | + + + | Baptism Affiliation | 1001 | + + + [...] Team Providers + +------+ + | Care Product Manufacturing Professional Name | Role | Phone | + +------+ + | John Thapa | PCP | | | MD | | | + +------+ + Reason for Visit + +--------+ + | Reason | Onset | Comments | | | Date | | + +--------+ + | Hip Pain | 03/27/ | | | | 2016 | | + +--------+ + Encounter Details +--------+ + + + + | Date | Type | Department | Care Team | Description | +--------+ + + + + | 03/27/ | Telephone | [facility] | Alanis, | Hip Pain | | 2016 | | MEDICINE [address] | MD John | | | | | [place], | [address] [facility] | | | | | [place] [address] | [place] [address] | | | | | [phone] | [phone] | | | | | | | [...] documented as of this encounter Miscellaneous Notes Addendum Note - John Thapa MD - 04/08/2017 8:44 AM PDT Addended by: JOHN HOPKINS on: 04/08/2017 08:44 Modules accepted: Orders ddrobertou cecilia Umanzor - Yue Mitchell Senior Economist - 04/03/2017 3:04 PM PDT Addended by: YUE FELDMAN on: 04/03/2017 15:04 Modules accepted: Orders Telephone Encounter - Yue Mitchell Senior Economist - 04/03/2017 2:57 PM PDTSpoke to patient and she is not doing better, She continues to have pain in her left hip and autumn d like to have an x-ray order sent to [facility] in [place]. Order cued up.Electronica lly signed by Destiney Rapp at 04/03/2017 2:58 PM PDTTelephone Enco untJohn Ramirez, MD - 04/01/2017 9:14 AM PDTTook me a while to see this , is she better? elephone Encounter - Tamara Elliott RN - 03/30/2017 3:09 PM PDTLeft ear lobe nguyen s start of infection in earring hole r/t cheap earrings (which have now been thrown out) Has hx of this issue with cheap earrings in the past and a Zpack has cleared it up [facility] in [place] is Pharmacy Had fall 4 months ago and used her life alert button but no one came. She had a big bruise at the time and continues to have pain in left hip Tender to touch and can't even lay on that side with out increased discomfort. Is requesting an xray to [facility] in [place] Please to advise elephone Encounter - Tuan Snider - 03/27/2017 2:22 PM PDTContact/Caller: Belinda Contact Number: [phone] Provider/Nurse: Emmy Reason for Call: Pt calling in stated they believe they are getting an infection on left ea r lobe. Wondering if they could get prescription for that. Pt also calling in would like an x-ray to be ordered for left hip over in [place]. Please advise. Last Appointment: 02/23/17 Next Appointment: 04/27/17 documented in this encoun ter Plan of Treatment +--------+---------+ + + + | Date | Type | Specialty | Care Team | Description | +--------+---------+ + + + | 02/15/ | Office | Internal Medicine | EmmyCarmen, | | | 2019 | Visit | | MD John | | | | | | [address] [place] | | | | | | [place] [address] | | | | | | [phone] | | | | | | | | +--------+---------+ + + + + +---------+--------+ + + | Name | Type | Priori | Associated Diagnoses | Order Schedule | | | | ty | | | + +---------+--------+ + + | XR Hip Left 2-3 | Imaging | Routin | Left hip pain | Expected: | | Views | | e | | 04/08/2017, Expires: | | | | | | 04/08/2018 | + +---------+--------+ + + documented as of this encounter Visit Diagnoses + + | Diagnosis | + + | Left hip pain - Primary Pain in joint, pelvic region and thigh | + + documented in this encounter"
--- OUTSIDE RECORDS SUMMARY | ~2020-01-25 | XMS | Encounter Summary ---
Demographics + + + | Address | [address] | | | [place] [address] | + + + | Home Phone [...] Author + + + | Author | [facility] | + + + | Organization | [facility] | + + + | Address [...] Team Providers + +------+ + | Care Fitness Plan Coordinator Name | Role | Phone | + +------+ + | Pedrito Gutierrez MD | PCP | | + +------+ + Encounter Details +--------+ + + + + | Date | Type | Department | Care Team | Description | +--------+ + + + + | 05/22/ | Telephone | [facility] | Carlos Arreola, | | | 2005 | | Center at [facility] [address] | [address] | | | | | [facility] | [facility] | | | | | for [facility] and | [place] [address] | | | | | [facility] [address] | [phone] | | | | | [place], [place] | | | | | | [address] | | | | | | [phone] | | | +--------+ + + + [...]
--- OUTSIDE RECORDS SUMMARY | ~2020-01-25 | XMS | Encounter Summary ---
Demographics + + + | Address | [address] | | | [place] [address] | + + + | Home Phone | | + + + | Preferred Language | Unknown | + + + | Marital Status | Single | + + + | Mandaen Affiliation | ADV | + + + [...] Team Providers + +------+ + | Care Pants Closer Name | Role | Phone | + [...]
--- OUTSIDE RECORDS SUMMARY | ~2020-01-25 | XMS | Encounter Summary ---
Demographics + + + | Address | [address] | | | [place] [address] | + + + | Home Phone | | + + + | Preferred Language | Unknown | + + + | Marital Status | | + + + | Taoism Affiliation | 1001 | + + + | Race | Unknown | + + + | Ethnic Group | Unknown | + + + Author + + + | Author | [facility] | | | and [place] | + + + | Organization | [facility] | | | and [...] Team Providers + +------+ + | Care Quarter Folder Name | Role | Phone | + +------+ + | Petrona Thapa | PCP | | | MD | | | + +------+ + Reason for Visit + +--------+ + | Reason | Onset | Comments | | | Date | | + +--------+ + | Medication Refill | 06/30/ | | | | 2018 | | + +--------+ + Encounter Details +--------+--------+ + + + | Date | Type | Department | Care Team | Description | +--------+--------+ + + + | 06/30/ | Refill | [facility] | Alanis, | Medication Refill | | 2018 | | MEDICINE [address] | MD Petrona | | | | | [place], | [address] | | | | | [place] [address] | [place] [address] | | | | | [phone] | [phone] | | | | | | | [...] Telephone Encounter - Maggie Montoya LPN - 06/30/2018 4:32 PM PSTLast appt: 06/17/17 Next appt: 09/15/18 docum ented in this encounter Plan of Treatment +--------+---------+ + + + | Date | Type | Specialty | Care Team | Description | +--------+---------+ + + + | 02/15/ | Office | Internal Medicine | Emmy-Tajti, | | | 2019 | Visit | | MD Petrona | | | | | | [facility] [address] | | | | | | [place] [address] | | | | | | [phone] | | | | | | | | +--------+---------+ + + + documented as of this encounter Visit Diagnoses + + | Diagnosis | + + | Chronic bilateral low back pain without sciatica | + + documented in this encounter"
--- OUTSIDE RECORDS SUMMARY | ~2020-01-25 | XMS | Encounter Summary ---
Demographics + + + | Address | [address] | | | [place] [address] | + + + | Home Phone | | + + + | Preferred Language | Unknown | + + + | Marital Status | Single | + + + | Temple Affiliation | ADV | + + + | Race | White | + + + | Ethnic Group | Not or | + + + Author + + + | Author | [facility] | + + + | Organization | [facility] | + + + | [...] Team Providers + +------+ + | Care Seed Cutter Name | Role | Phone | + [...] + + + | Closed | | Psychology / | Diagnoses | Paco, | Alin, | | | | Pain | Myalgia and | NIHARIKA Drake | Lukasz Rhodes, PhD | | | | Management | myositis, | [address] | [address] | | | | unspecified | [address] | Ave | | | | | Encounter | [place] | | | | | for | [address] | [address] | | | | | long-term | | Phone: | | | | | (current) | | [phone] | | | | | use of other | | Fax: | | | | | medications | | [phone] | | | | | LBP (low | | | | | | | back pain) | | | | | | | Chronic | | | | | | | shoulder | | | | | | | pain Muscle | | | | | | | strain | | | | | | | Radicular | | | | | | | pain in left | | | | | | | arm Neck | | | | | | | pain | | | | | | | Procedures | | | | | | | CONSULT TO | | | | | | | PAIN CENTER | | | +--------+--------+ + + + + Encounter Details +--------+---------+ + + + | Date | Type | Department | Care Team | Description | +--------+---------+ + + + | 06/23/ | Office | [facility] at [facility] | Lukasz Charles, | Major depressive | | 2013 | Visit | [address] | PhD [address] | disorder, recurrent | | | | [facility] | [place], [place] | episode, moderate | | | | and Healing, | [address] | ([facility]) (Primary Dx); | | | | | [phone] | LBP (low back pain); | | | | Floor [place], [place] | | Adjustment disorder | | | | [address] | | with anxiety | | | | [phone] | | | +--------+---------+ + + + [...] documented as of this encounter Progress Notes Lukasz Charles, PhD - 06/23/2013 1:51 PM PSTPROGRESS NOTE: Belinda Meehan is a 53 y.o. female with diffuse body pain. She also has some symptoms of depression and some anxiety along with her pain. She reported no real changes since last s ession. She is here today to talk with Dr. Montero about a spinal cord stimulator. We discu ssed some issues related to stimulators. We discussed stress and she described ongoing prob lems with her son, his girlfriend and their child. We discussed the relationship between pa in and stress. We discussed the need for improved stress management and we reviewed stress management skills and strategies. Ms. Meehan has depression and a lot of stress in her life. She is not suicidal. She stil l needs to make some changes to better manage her stress but she is probably an appropriate candidate for a stimulator. Diagnosis: Avant I: 1. (296.32) Major depressive disorder, recurrent, moderate. 2. (309.24) Adjustment disorder with anxiety. Avant II: Deferred Avant III: abdominal pain, migraine headache, low back pain, fibromyalgia. Avant IV: low finances Avant V: GAF 55-60 Plan: return in 1 month. Check mood, pain, activity, stress management. Ask about spinal cord stimulator, any changes at home. Continue cognitive/behavioral therapy. Total time spent with patient was approximately 45 minutes. LUKASZ CHARLES PHD [facility] [address] [facility], [address] [place] [address] documented in this en counter Plan of Treatment Not on filedocumented as of this encounter Visit Diagnoses + + | Diagnosis | + + | Major depressive disorder, recurrent episode, moderate (HCC) - Primary Major | | depressive disorder, recurrent episode, moderate | + + | LBP (low back pain) Lumbago | + + | Adjustment disorder with anxiety | + + documented in this encounter"
--- OUTSIDE RECORDS SUMMARY | ~2020-01-25 | XMS | Encounter Summary ---
Demographics + + + | Address | [address] | | | [place] [address] | + + + | Home Phone | | + + + | Preferred Language | Unknown | + + + | Marital Status | Single | + + + | Druze Affiliation | ADV | + + + [...] Providers + +------+ + | Care General Assignment Reporter Name | Role | Phone | + +------+ + PCP | Unavailable | + +------+ + Encounter Details +--------+ + + + + | Date | Type | Department | Care Team | Description | +--------+ + + + + | 12/05/ | H&P-Transcr | | Physical, History | Hstry & Physical | | 2004 | ibed | | & | | +--------+ + + + + [...]
--- OUTSIDE RECORDS SUMMARY | ~2020-01-25 | XMS | Encounter Summary ---
Demographics + + + | Address | [address] | | | [place] [address] | + + + | Home Phone | | + + + | Preferred Language | Unknown | + + + | Marital Status | Single | + + + | Confucianist Affiliation | ADV | + + + [...] Team Providers + +------+ + | Care Break Up Worker Name | Role | Phone | + +------+ + | Pedrito Gutierrez MD | PCP | | + +------+ + Reason for Visit + + + | Reason | Comments | + + + | Medication Questions | | + + + Encounter Details +--------+ + + + + | Date | Type | Department | Care Team | Description | +--------+ + + + + | 08/14/ | Telephone | [facility] | Miranda Lambert, | Medication Questions | | 2006 | | Center Outpatient | ANP | | | | | Therapy Center [address] | | | | | | Outpatient Therapy | | | | | | Center 2nd floor | | | | | | Mailcode: [id number] | | | | | | [place], [place] | | | | | | [address] | | | | | | [phone] | | | +--------+ + + + [...]
--- OUTSIDE RECORDS SUMMARY | ~2020-01-25 | XMS | Encounter Summary ---
Demographics + + + | Address | [address] | | | [place] [address] | + + + | Home Phone [...] + + + | Author | [facility] | + + + | Organization | [facility] | + + + | Address [...] Team Providers + +------+ + | Care Special Order Jeweler Name | Role | Phone | + +------+ + PCP | Unavailable | + +------+ + Encounter Details +--------+ + + + + | Date | Type | Department | Care Team | Description | +--------+ + + + + | 02/26/ | Results | Kraig Turner | Beto Meeks MD | | | 2003 | Only | [facility] | [address] | | | | | [facility] | [place], [place] | | | | | [address] | [address] | | | | | [address] | [phone] | | | | | Physician's | | | | | | Pavilion, [facility] floor | | | | | | [place], [place] | | | | | | [address] | | | | | | [phone] | | | +--------+ + + + [...] + +--------+ + + + | VITAMIN D, | Routin | 02/27/2004 | | Results for this | | 25-HYDROXY, SERUM | e | 2:19 PM | | procedure are in the | | | | PDT | | results section. | + +--------+ + + + | COMPLETE METABOLIC | Routin | 02/27/2004 | | Results for this | | SET | e | 2:19 PM | | procedure are in the | | (NA,K,CL,CO2,BUN,CRE | | PDT | | results section. | | AT,GLUC,CA,AST,ALT,B | | | | | | DEYA TOTAL,ALK | | | | | | PHOS,ALB,PROT TOTAL) | | | | | + +--------+ + + + | CBC ONLY | Routin | 02/27/2004 | | Results for this | | | e | 2:19 PM | | procedure are in the | | | | PDT | | results section. | + +--------+ + + + | FERRITIN | Routin | 02/27/2004 | | Results for this | | | e | 2:19 PM | | procedure are in the | | | | PDT | | results section. | + +--------+ + + + | FREE T4 | Routin | 02/27/2004 | | Results for this | | | e | 2:19 PM | | procedure are in the | | | | PDT | | results section. | + +--------+ + + + | TSH | Routin | 02/27/2004 | | Results for this | | | e | 2:19 PM | | procedure are in the | | | | PDT | | results section. | + +--------+ + + + documented in this encounter Results FERRITIN (02/27/2004 2:19 PM PDT) + + + + + + | Component | Value | Ref Range | Performed | Pathologist | | | | | At | Signature | + + + + + + | FERRITIN | 36Comment: Test | 10 - 291 ng/mL | | | | | performed at [facility] | | | | | | [facility] | | | | | | Laboratory | | | | + + + + + + + + | Specimen | + + | | + + + + + + + | Performing | Address | City/State/Zipcode | Phone Number | | Organization | | | | + + + + + | [facility] | [address] | [place] [address] | | | LABORATORY | | | | + + + + + VITAMIN D, 25-HYDROXY (02/27/2004 2:19 PM PDT) + +-------+ + + + | Component | Value | Ref Range | Performed | Pathologist | | | | | At | Signature | + +-------+ + + + | VITAMIN D | 67 | 10 - 68 ng/mL | | | | 25 HYDROXY | | | | | + +-------+ + + + + + | Specimen | + + | | + + + + + + + | Performing | Address | City/State/Zipcode | Phone Number | | Organization | | | | + + + + + | [facility] | [address] | [place] [address] | | | LABORATORY | | | | + + + + + TSH-THYROID STIM HORMONE (02/27/2004 2:19 PM PDT) + + + + + + | Component | Value | Ref Range | Performed | Pathologist | | | | | At | Signature | + + + + + + | TSH | 2.40Comment: Test | 0.28 - 5.00 | | | | | performed by [facility] | [facility] | | | | | [facility] | | | | | | Laboratories. | | | | + + + + + + + + | Specimen | + + | | + + + + + + + | Performing | Address | City/State/Zipcode | Phone Number | | Organization | | | | + + + + + | [facility] | [address] | [place] [address] | | | LABORATORY | | | | + + + + + FREE T4, SERUM (02/27/2004 2:19 PM PDT) + + + + + + | Component | Value | Ref Range | Performed | Pathologist | | | | | At | Signature | + + + + + + | FREE T4, | 0.8Comment: Test | 0.7 - 1.8 ng/dL | | | | SERUM | performed by [facility] | | | | | | [facility] | | | | | | Laboratories. | | | | + + + + + + + + | Specimen | + + | | + + + + + + + | Performing | Address | City/State/Zipcode | Phone Number | | Organization | | | | + + + + + | [facility] | [address] | [place] [address] | | | LABORATORY | | | | + + + + + CBC ONLY WITH PLATELET (02/27/2004 2:19 PM PDT) + + + + + + | Component | Value | Ref Range | Performed | Pathologist | | | | | At | Signature | + + + + + + | WHITE CELL | 9.7 | 4.4 - 11.0 K/cu | [facility] | | | COUNT | | mm | DEPARTMENT | | | | | | OF | | | | | | PATHOLOGY | | + + + + + + | RED CELL | 4.68 | 3.65 - 5.10 | [facility] | | | COUNT | | M/cu mm | DEPARTMENT | | | | | | OF | | | | | | PATHOLOGY | | + + + + + + | HEMOGLOBIN | 14.5 | 11.4 - 15.0 | [facility] | | | | | g/dL | DEPARTMENT | | | | | | OF | | | | | | PATHOLOGY | | + + + + + + | HEMATOCRIT | 42.9 | 33.0 - 44.6 % | [facility] | | | | | | DEPARTMENT | | | | | | OF | | | | | | PATHOLOGY | | + + + + + + | MCV | 91.6 | 80.0 - 96.0 fL | [facility] | | | | | | DEPARTMENT | | | | | | OF | | | | | | PATHOLOGY | | + + + + + + | MCH | 30.9 | 29.0 - 32.0 pg | [facility] | | | | | | DEPARTMENT | | | | | | OF | | | | | | PATHOLOGY | | + + + + + + | MCHC | 33.7 | 33.4 - 35.5 | [facility] | | | | | g/dL | DEPARTMENT | | | | | | OF | | | | | | PATHOLOGY | | + + + + + + | RDW | 12.2 | 11.5 - 15.0 % | [facility] | | | | | | DEPARTMENT | | | | | | OF | | | | | | PATHOLOGY | | + + + + + + | PLATELET | 244 | 150 - 400 K/cu | [facility] | | | COUNT | | mm | DEPARTMENT | | | | | | OF | | | | | | PATHOLOGY | | + + + + + + | MPV | 10.9 (H) | 7.4 - 10.4 fL | [facility] | | | | | | DEPARTMENT | | | | | | OF | | | | | | PATHOLOGY | | + + + + + + + + | Specimen | + + | | + + + + + + + | Performing | Address | City/State/Zipcode | Phone Number | | Organization | | | | + + + + + | [facility] | [address] | [place] [address] | | | PATHOLOGY | [address] | | | + + + + + | [facility] | [address] | [place] [address] | | | PATHOLOGY | [address] | | | + + + + + COMP METABOLIC SET (02/27/2004 2:19 PM PDT) + +-------+ + + + | Component | Value | Ref Range | Performed | Pathologist | | | | | At | Signature | + +-------+ + + + | GLUCOSE, | 96 | 65 - 110 mg/dL | [facility] | | | PLASMA | | | DEPARTMENT | | | (LAB) | | | OF | | | | | | PATHOLOGY | | + +-------+ + + + | BUN, PLASMA | 10 | 6 - 20 mg/dL | [facility] | | | (LAB) | | | DEPARTMENT | | | | | | OF | | | | | | PATHOLOGY | | + +-------+ + + + | CREATININE | 0.8 | 0.6 - 1.1 mg/dL | [facility] | | | PLASMA | | | DEPARTMENT | | | (LAB) | | | OF | | | | | | PATHOLOGY | | + +-------+ + + + | TOTAL | 7.3 | 6.1 - 7.9 g/dL | [facility] | | | PROTEIN, | | | DEPARTMENT | | | PLASMA | | | OF | | | (LAB) | | | PATHOLOGY | | + +-------+ + + + | ALBUMIN, | 4.1 | 3.5 - 4.7 g/dL | [facility] | | | PLASMA | | | DEPARTMENT | | | (LAB) | | | OF | | | | | | PATHOLOGY | | + +-------+ + + + | CALCIUM, | 9.7 | 8.5 - 10.5 | [facility] | | | PLASMA | | mg/dL | DEPARTMENT | | | (LAB) | | | OF | | | | | | PATHOLOGY | | + +-------+ + + + | BILIRUBIN | 0.6 | 0.3 - 1.2 mg/dL | [facility] | | | TOTAL | | | DEPARTMENT | | | | | | OF | | | | | | PATHOLOGY | | + +-------+ + + + | ALK PHOS | 89 | 42 - 98 U/L | [facility] | | | | | | DEPARTMENT | | | | | | OF | | | | | | PATHOLOGY | | + +-------+ + + + | AST(SGOT) | 27 | 15 - 41 U/L | [facility] | | | | | | DEPARTMENT | | | | | | OF | | | | | | PATHOLOGY | | + +-------+ + + + | SODIUM, | 140 | 136 - 145 | [facility] | | | PLASMA | | mmol/L | DEPARTMENT | | | (LAB) | | | OF | | | | | | PATHOLOGY | | + +-------+ + + + | POTASSIUM, | 3.5 | 3.5 - 5.1 | [facility] | | | PLASMA | | mmol/L | DEPARTMENT | | | (LAB) | | | OF | | | | | | PATHOLOGY | | + +-------+ + + + | CHLORIDE, | 104 | 98 - 107 mmol/L | [facility] | | | PLASMA | | | DEPARTMENT | | | (LAB) | | | OF | | | | | | PATHOLOGY | | + +-------+ + + + | TOTAL CO2, | 24 | 23 - 29 mmol/L | [facility] | | | PLASMA | | | DEPARTMENT | | | (LAB) | | | OF | | | | | | PATHOLOGY | | + +-------+ + + + | ALT (SGPT) | 22 | 13 - 48 U/L | [facility] | | | | | | DEPARTMENT | | | | | | OF | | | | | | PATHOLOGY | | + +-------+ + + + + + | Specimen | + + | | + + + + + + + | Performing | Address | City/State/Zipcode | Phone Number | | Organization | | | | + + + + + | [facility] | [facility] | [place] [address] | | | PATHOLOGY | [address] | | | + + + + + | [facility] | [facility] | [place] [address] | | | PATHOLOGY | [address] | | | + + + + + documented in this encounter Visit Diagnoses Not on filedocumented in this encounter"
--- OUTSIDE RECORDS SUMMARY | ~2020-01-25 | XMS | Encounter Summary ---
Demographics + + + | Address | [address] | | | [place] [address] | + + + | Home Phone [...] + + + | Author | [facility] | + + + | Organization | [facility] | + + + | Address [...] Team Providers + +------+ + | Care Watch Caser Name | Role | Phone | + +------+ + | Pedrito Gutierrez MD | PCP | | + +------+ + Reason for Visit + + + | Reason | Comments | + + + | Follow-up visit | | + + + Encounter Details +--------+---------+ + + + | Date | Type | Department | Care Team | Description | +--------+---------+ + + + | 09/09/ | Office | [facility] at [facility] | Lukasz Charles, | Major Depressive | | 2006 | Visit | [address] | PhD [address] | Disorder, Recurrent | | | | Center for Health | [place], [place] | Episode, Moderate | | | | and Healing, | [address] | ([facility]); DJD | | | | Building | [phone] | (Degenerative Joint | | | | Floor [place], [place] | | Disease) of Left | | | | [address] | | Knee; Neck Pain; | | | | [phone] | | Herniated Lumbar | | | | | | Intervertebral Disc | | | | | | L4-5; Chronic | | | | | | Abdominal Pain; | | | | | | Adjustment Disorder | | | | | | with Anxiety; Other | | | | | | Pain Disorders | | | | | | Related to | | | | | | Psychological | | | | | | Factors | +--------+---------+ + + + Social History [...] as of this encounter Progress Notes Lukasz Charles - 09/09/2006 1:05 PM PDTPROGRESS NOTE: Belinda Meehan is a 46 y.o. female with head, abdominal, back, and leg pain. She has sym ptoms of depression and anxiety along with her pain. She reported little change since previ ous visit. She is looking forward to the visit of her niece next month. We discussed what she needs to do to prepare for the visit. We discussed being assertive with her sons. We d iscussed her desires to join [employer] and she made a plan to call them tomorrow for more i nformation. She has been reading from "Managing Pain Before It Manages You" by Ailyn gamez nd has found it to be helpful. We discussed the content of the first 2 chapters. Ms. Meehan has ongoing depression and frustration. She is not suicidal. She is making go od progress and is making an effort to improve. Diagnosis: [place]legany I: 1. (296.32) Major depressive disorder, recurrent, moderate. 2. (309.24) Adjustment disorder with anxiety. 3. 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 [place]legany II: Deferred [place] III: abdominal pain, migraine headache, low back pain. [place] IV: low finances [place]y V: GAF 50 Plan: Return in 2 weeks. Check preparation for niece's visit, [employer], pacing, relaxation, ac tivity, distraction. Check managing Pain... book. Continue cognitive/behavioral therapy. Total time spent with patient was approximately 45 minutes. LUKASZ CHARLES PHD [facility] [address] [facility], [address] [place] [address] documented in this encount er Plan of Treatment + + +--------+ + + | Name | Type | Priori | Associated Diagnoses | Order Schedule | | | | ty | | | + + +--------+ + + | [facility] PSYCHOTHERPY, | Procedures | Routin | Major Depressive | Ordered: 09/09/2006 | | OFFICE (45-50) | | e | Disorder, Recurrent | | | | | | Episode, Moderate | | | | | | (HCC) DJD | | | | | | (Degenerative Joint | | | | | | Disease) of Left | | | | | | Knee Neck Pain | | | | | | Herniated Lumbar | | | | | | Intervertebral Disc | | | | | | L4-5 Chronic | | | | | | Abdominal Pain | | | | | | Adjustment Disorder | | | | | | with Anxiety Other | | | | | | Pain Disorders | | | | | | Related to | | | | | | Psychological | | | | | | Factors | | + + +--------+ + + documented as of this encounter Visit Diagnoses + + | Diagnosis | + + | Major depressive disorder, recurrent episode, moderate (HCC) Major depressive | | disorder, recurrent episode, moderate | + + | 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 Osteoarthrosis, unspecified whether | | generalized or localized, lower leg | + + | Neck pain Cervicalgia | + + | Herniated Lumbar Intervertebral Disc L4-5 Displacement of lumbar intervertebral disc | | without myelopathy | + + | Chronic abdominal pain Abdominal pain, unspecified site | + + | Adjustment disorder with anxiety | + + | Other pain disorders related to psychological factors | + + documented in this encounter
--- OUTSIDE RECORDS SUMMARY | ~2020-01-25 | XMS | Encounter Summary ---
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 female [facility] Return [...] with good pain control and allowed Anu nda to be more functional. Since prior visit, [...] the fentanyl is not sticking leaving Belinda cisneros on treatment since Thursday12/19/06 she d enies [...] analgesic therapy in particular with oxycontin with Belindanevin Simons. We reviewed materials risk notice and [facility] opioid agreement. A ll questions were addressed [...] management and reduce opioid need. [facility]OL[facility] Mail code CH 4P [facility] [address] [facility] [address] Ailyn Foster - 12/22/19 12:51 PM PDTCMA History: PMH/PSH/SH/FH review 1. [...]
--- OUTSIDE RECORDS SUMMARY | ~2020-01-25 | XMS | Encounter Summary ---
Demographics + + + | Address | [address] | | | [place] [address] | + + + | Home Phone [...] Team Providers + +------+ + | Care Handkerchief Sample Clerk Name | Role | Phone | [...] as of this encounter Progress Notes Interface, Manager [employer]ity In - 01/11/2005 5:17 PM PDT [place] [facility] [address] [place] [address] or June 26, 2003 Pedrito Gutierrez M.D. [address] [place] [address] RE: BELINDA MEEHAN MR #: [id number] Dear Dr. Gutierrez: I had the pleasure of seeing your patient, Ms. Belinda Meehan, today in the [facility] Division of Rheumatology Clinic. She was evaluated [...] our final recommendations after that visit. Sincerely, Sesar Nash M.D. NRUIA / SHARIF [id number] / [id number] / [id number] / [id number] cc: Kelley Alegre [address] [place] [address] FAX: [phone] signed by Interface, Manager Equity In at 01/11/2005 5:17 PM PDTdocumented in this encounter Plan of Treatment Not on filedocumented as of this encounter Visit Diagnoses Not on filedocumented in this encounter"
--- OUTSIDE RECORDS SUMMARY | ~2020-01-25 | XMS | Encounter Summary ---
Demographics + + + | Address | [address] | | | [place] [address] | + + + | Home Phone | | + + + | Preferred Language | Unknown | + + + | Marital Status | | + + + | Druze Affiliation | [id number] | + + + | Race | Unknown | + + + | Ethnic Group | Unknown | + + + Author + + + | Author | [facility] | | | and [place] | + + + | Organization | [facility] | | | and [...] Team Providers + +------+ + | Care Administration Specialist Name | Role | Phone | + +------+ + | Petrona Thapa | PCP | | | MD | | | + +------+ + Reason for Visit Evaluate & Treat (Routine) +--------+ + + + + + | Status | Reason | Specialty | Diagnoses / | Referred By | Referred To | | | | | Procedures | Contact | Contact | +--------+ + + + + + | Closed | Specialty | Gastroenterol | Diagnoses | | Alisha, | | | Services | jos | Nausea | Emmy-Cristin | MD Luther | | | Required | | | i, | [address] | | | | | | [place] | TORI | | | | | MD [address] | [place] [address] | | | | | | [address] | Phone: | | | | | | [place], | [phone] | | | | | | [place] | Fax: | | | | | | [address] | [phone] | | | | | | Phone: | | | | | | | [phone] | | | | | | | Fax: | | | | | | | [phone] | | +--------+ + + + + + Encounter Details +--------+---------+ + + + | Date | Type | Department | Care Team | Description | +--------+---------+ + + + | 10/18/ | Office | [facility] | Emmy-Kamlesh, | Obesity (BMI | | 2018 | Visit | GASTROENTEROLOGY | MD Petrona | 30.0-34.9) (Primary | | | | [address] [place] | [address] [place] | Dx); Nausea; Dumping | | | | [address] [place], [place] | [place] [address] | syndrome; Cecal | | | | [address] | [phone] | volvulus (HCC); | | | | [phone] | | Gastroesophageal | | | | | Luther Brito MD | reflux disease, | | | | | [address] | esophagitis presence | | | | | [place], [place] | not specified | | | | | [address] | | | | | | [phone] | | | | | | | [...] + + + | Blood Pressure | 100/52 | 10/18/2018 10:05 AM | | | | | PDT | | + + + + + | Pulse | 68 | 10/18/2018 10:05 AM | | | | | PDT | | + + + + + | Temperature | 36.6 C (97.8 F) | 10/18/2018 10:05 AM | | | | | PDT | | + + + + + | Respiratory Rate | 16 | 10/18/2018 10:05 AM | | | | | PDT | | + + + + + | Oxygen Saturation | 98% | 10/18/2018 10:05 AM | | | | | PDT | | + + + + + | Inhaled Oxygen | - | - | | | Concentration | | | | + + + + + | Weight | 90.8 kg (200 lb 2.8 | 10/18/2018 10:05 AM | | | | oz) | PDT | | + + + + + | Height | 172.7 cm (5' 8") | 10/18/2018 10:05 AM | | | | | PDT | | + + + + + | Body Mass Index | 30.44 | 10/18/2018 10:05 AM | | | | | PDT | | + + + + + documented in this encounter Progress Dixie Reyna RN - 10/18/2018 10:30 AM PDTReferral to nutrition placed; if not approved will ask PCP to refer patient. 1: 24 PM PDTdocumented in this encounter H&P Notes Luther Brito MD - 10/18/2018 10:30 AM PDT Date of Office Visit: 10/18/18 Chief Complaint: No chief complaint on file. History of Present Illness: Belinda Meehan is a 58 y.o. female who presents for follow-up after recent hospitalization for cecal volvulus. The patient underwent emergent surgery an d was in the hospital for 3 weeks. She is now feeling much better however still having occa sional nausea after eating meals and especially has problems with dairy and lactose-containi ng food as well as with beef. She notices that her symptoms are much better with just veget radha. She has had gastric bypass in the past and has been diagnosed with dumping syndrome which occurs immediately after eating a meal. She has been trying to adjust her diet and de creasing sugars and simple carbohydrates. Upper endoscopy performed last year was unremarka ble except for changes noted from Zoe-en-Y gastric bypass procedure. Colonoscopy was unrem arkable at that time as well. The patient denies significant abdominal pain and denies noti cing blood in the stool. The patient is still taking narcotic pain medications on a daily b asis and gets nauseated from taking opiates. She then must take Zofran after taking the sina n medications. She has been trying to decrease the opiates as well as decrease the Zofran a nd since the surgery she is down to 1 tablet of Zofran 3-4 times a day. Past Medical History: Past Medical History: Diagnosis Date Anemia Anxiety [...] Osteopenia Osteoporosis Palpitations Peripheral neuropathy Rheumatoid arthritis ([facility]) Right arm pain 01/04/2015 RLS (restless legs syndrome) S/P lumbar fusion 01/04/2015 Scoliosis Sleep apnea Spondylosis with myelopathy, lumbar region Stroke ([facility]) Syncope Tremor Type II or unspecified type diabetes mellitus with other specified manifestations, not stated as uncontrolled 05/04/2017 Vitamin D deficiency Past Surgical History: Past Surgical History: Procedure Laterality Date ADENOIDECTOMY APPENDECTOMY BREAST LUMPECTOMY Left 2001 CARPAL TUNNEL RELEASE 2002 SECTION CHOLECYSTECTOMY 2004 COLONOSCOPY N/A 12/18/2017 Procedure: COLONOSCOPY; Surgeon: Luther Brito MD; Location: [facility] DILATION AND CURETTAGE OF UTERUS ELBOW SURGERY FINGER TRIGGER RELEASE 2002 FINGER TRIGGER RELEASE 2009 GASTRIC BYPASS SURGERY 2004 HYSTERECTOMY 05/14/1980 JOINT REPLACEMENT Bilateral 2007 2008 KNEE ARTHROSCOPY 2005 LAPAROSCOPY 01/27/2015 LAPAROTOMY 2008 ROTATOR CUFF REPAIR 2005 SPINE SURGERY TONSILLECTOMY 1964 UPPER GASTROINTESTINAL ENDOSCOPY N/A 12/18/2017 Procedure: EGD; Surgeon: Luther Brito MD; Location: [facility] Family History: Family History Problem Relation Age of Onset [...] High blood pressure Son Renal failure Son Allergies: Allergies Allergen Reactions Ensure Diarrhea Food Diarrhea Lactose Not Noted Levofloxacin Hives,Itching,Rash Butalbital Not Noted Ropinirole Not Noted Tthdpulgnx-Riho-Javnaabc Hives,Rash Cephalexin Hives Ciprofloxacin Hives,Rash Clarithromycin Hives,Rash Clindamycin Hcl Hives,Rash Doxycycline Rash Ketorolac Hives Levofloxacin Hives,Rash Morphine Swelling Penicillins Hives,Rash Ropinirole Hcl Hives Sulfamethoxazole-Trimethoprim Hives,Rash Intolerance Allergen Reactions Codeine Sulfate Nausea Only Amitriptyline Hcl Other (See Comments) Confused and questionable for seizures Duloxetine Other (See Comments) Migraines and nausea Tramadol Hcl Nausea Only Medications: has a current medication list which includes the following prescription(s): albuterol, asco rbic acid, cholecalciferol, combigan, epinephrine, fluticasone, furosemide, gabapentin, hydr ocodone-acetaminophen, incontinence supplies, levothyroxine, loperamide, meclizine, metoprol ol tartrate, complete womens, naloxone, nitroglycerin, omeprazole, ondansetron, potassium ch loride, sucralfate, sumatriptan, topiramate, torsemide, travoprost, UNABLE TO FIND, UNABLE T O FIND, zinc sulfate, and zoledronic acid, and the following Facility-Administered Medicatio ns: cyanocobalamin. Review of Systems: A 10-point review of systems was performed and was negative except as n oted in the history of present illness. Physical Exam: Vitals:BP 100/52 | Pulse 68 | Temp 36.6 C (97.8 F) (Temporal) | Resp 16 | Ht 1.727 m (5' 8") | Wt 90.8 kg (200 lb 2.8 oz) | LMP (LMP Unknown) | SpO2 98% | BMI 30.44 kg/m General: This is a well-developed,well-nurished female in no apparent distress, alert and o riented times 3. HEENT: Reveals normocephalic, atraumatic with extraocular muscles intact. Oropharynx is briana ar without obstruction. Neck: Supple without lymphadenopathy or thyromegaly. Lungs: Clear to auscultation without rales or wheezes. Cardiac: Reveals regular rate and rhythm with normal S1 and S2 and no murmurs, rubs or gall ops. Abdomen: Soft and nontender without masses or organmegaly. Extremities: Without cyanosis, clubbing or edema. Neuro: Awake, alert, oriented x3. Normal station and gait. Skin: Warm and dry, no erythematous rash. Lab Results Component Value Date NA 140 03/02/2018 K 4.1 03/02/2018 CL 105 03/02/2018 CO2 27 03/02/2018 ANIONGAP 8 03/02/2018 GLU 101 03/02/2018 BUN 9 03/02/2018 CREA 0.83 03/02/2018 GFRNONAA >60 03/02/2018 CALCIUM 9.0 03/02/2018 ALBUMIN 4.4 03/02/2018 BILITOT 0.7 03/02/2018 TOTALPROTEIN 7.3 03/02/2018 AST 37 03/02/2018 ALT 37 03/02/2018 ALKPHOS 99 03/02/2018 WBC 10.3 03/02/2018 HGB 15.2 03/02/2018 HCT 45.3 03/02/2018 MCV 97.2 03/02/2018 PLT 239 03/02/2018 ESR 4 03/02/2018 CRP 0.48 05/04/2017 No results found for this or any previous visit. No results found for: LACTOQL, CAMPY, CULTURE, SHIGATOXINI, SHIGATOXINII, GIARDIAAG, CRSPAG , CDIFFICILEGD, CDIFF, LABOVA Last CT abd - No results found for this or any previous visit. Last MRI abd - No results found for this or any previous visit. Last US abd - No results found for this or any previous visit. Assessment and Plan: 58-year-old female status post recent hospitalization and surgery due to cecal volvulus. The patient is doing much better at this time and voices no complaints o f diarrhea or constipation however does still have significant nausea symptoms immediately a fter eating a meal. She most likely has early dumping syndrome due to her Zoe-en-Y gastric bypass procedure. I strongly recommend that she adjust her diet to small frequent meals dur ing the day and avoiding sugars and simple carbohydrates. She should stick with vegetables and dairy free and lactose-free foods and consume foods that agree with her stomach and liz ls. I recommend referral to a shading painter for further assistance with dumping syndrome. I als o strongly advised that she try to decrease her opiate narcotic pain medication use and decr ease her Zofran use. The goal of Zofran will be to take just 1 or 2 Zofran tablets a day an d possibly with some days being Zofran free. However with the patient's prior surgery and d umping syndrome it is likely that she will need Zofran on a daily basis however at a decreas ed dose. She should follow-up in the GI clinic as needed. documented in this encounter Plan of Treatment +--------+---------+ + + + | Date | Type | Specialty | Care Team | Description | +--------+---------+ + + + | 02/15/ | Office | Internal Medicine | Alanis, | | | 2019 | Visit | | MD Petrona | | | | | | [address] [facility] [place] | | | | | | [place] [address] | | | | | | [phone] | | | | | | | | +--------+---------+ + + + documented as of this encounter Visit Diagnoses + + | Diagnosis | + + | Obesity (BMI 30.0-34.9) - Primary Obesity, unspecified | + + | Nausea Nausea alone | + + | Dumping syndrome Postgastric surgery syndromes | + + | Cecal volvulus (HCC) Volvulus | + + | Gastroesophageal reflux disease, esophagitis presence not specified | + + documented in this encounter
--- OUTSIDE RECORDS SUMMARY | ~2020-01-25 | XMS | Encounter Summary ---
Demographics + + + | Address | [address] | | | [place] [address] | + + + | Home Phone [...] Author + + + | Author | [facility] | + + + | Organization | [facility] | + + + | [...] Team Providers + +------+ + | Care Trial Lawyer Name | Role | Phone | + +------+ + | Pedrito Gutierrez MD | PCP | | + +------+ + Reason for Visit + + + | Reason | Comments | + + + | Lab Results | enter CD Rom results of several radiology studies | + + + Encounter Details +--------+ + + + + | Date | Type | Department | Care Team | Description | +--------+ + + + + | 07/02/ | Documentati | [facility] | Miranda Lambert, | Lab Results (enter | | 2006 | on | [facility] at | ANP | CD Rom results of | | | | [facility] | | several radiology | | | | [address] | | studies) | | | | [facility] | | | | | | and Healing, | | | | | | Building | | | | | | Floor [place], [place] | | | | | | [address] | | | | | | [phone] | | | +--------+ + + + [...] +--------+ + + + | MRI SPINE LUMBAR WO | Routin | 10/06/2005 | | Results for this | | CONT | e | | | procedure are in the | | | | | | results section. | + +--------+ + + + | X-RAY SPINE THORACIC | Routin | 10/01/2005 | | Results for this | | 2 VIEWS | e | | | procedure are in the | | | | | | results section. | + +--------+ + + + | X-RAY SPINE CERV 4 | Routin | 10/01/2005 | | Results for this | | VIEWS | e | | | procedure are in the | | | | | | results section. | + +--------+ + + + | MRI SPINE CERVICAL | Routin | 10/01/2005 | | Results for this | | WO CONTRAST | e | | | procedure are in the | | | | | | results section. | + +--------+ + + + | MRI SHOULDERS BILAT | Routin | 09/02/2005 | | Results for this | | WO CONT | e | | | procedure are in the | | | | | | results section. | + +--------+ + + + | DC MRI LOWER EXTREM | Routin | 08/22/2005 | | Results for this | | JT, W/O CONTRAST | e | | | procedure are in the | | | | | | results section. | + +--------+ + + + | NM BONE &/OR JOINT | Routin | 05/16/2005 | | Results for this | | IMAGING WHOLE BODY | e | | | procedure are in the | | | | | | results section. | + +--------+ + + + | DC MRI LOWER EXTREM | Routin | 03/05/2005 | | Results for this | | JT, W/O CONTRAST | e | | | procedure are in the | | | | | | results section. | + +--------+ + + + | MRI KNEE LT WO CONT | Routin | 12/14/2004 | | Results for this | | | e | | | procedure are in the | | | | | | results section. | + +--------+ + + + | X-RAY SPINE CERVICAL | Routin | 04/01/2004 | | Results for this | | 2 VIEWS | e | | | procedure are in the | | | | | | results section. | + +--------+ + + + documented in this encounter Results MRI SPINE LUMBAR WO CONT (10/06/2005) + + + | Impressions | Performed At | + + + | NAME: BELINDA MEEHAN MR #: [id number] | [facility] | | DATE OF EXAM: [id number] PHYSICIAN: EMMA ROJAS | CARE TESTS | | | | | LUMBAR SPINE W/O CONTRAST AT 1503 HOURS MRI | | | LUMBAR SPINE, 10/06/05 HISTORY: Low back pain with radiation into | | | hips. TECHNIQUE: T1/T2/STIR sagittal, T1 and T2 axial. | | | FINDINGS: The conus medullaris is at the T12-L1 level. Multiple | | | Schmorl's node defects are noted across the thoracolumbar junction. | | | The lumbar vertebra are in proper alignment with normal body | | | heights. At L1-2 and L2-3, the spinal canal and neural canals are | | | unremarkable. At L3-4, there is mild central disk bulging, but | | | there is no stenosis. At L4-5, the disk space is narrowed and | | | there is a central prominent disk bulge, consistent with a herniated | | | nucleus pulposus, which indents the anterior thecal sac. At | | | L5-S1, the disk space is narrowed and contains nitrogen representing | | | disk desiccation/degeneration, with a mild posterior disk bulge. 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 Transcribed By: Armaan Rivera | | | H : [id number] : 1442 Approved By: Radiologist: | | + + + + + + + + | Performing | Address | City/State/Zipcode | Phone Number | | Organization | | | | + + + + + | [facility] | [address] | [place], [place] | | | [place]ARE | [address] | [address] | | | TESTS | | | | + + + + + | [facility] | [address] | [place], [place] | | | TESTS | [address] | [address] | | + + + + + SPINE CERV 4 VIEWS (10/01/2005) + + + | Impressions | Performed At | + + + | SPINE CERVICAL 2 VIEWS AT 1410 HOURS CERVICAL SPINE, 10/01/05 | [facility] | | HISTORY: Chronic back pain. FINDINGS: AP, lateral, and | CARE TESTS | | odontoid views of the cervical spine demonstrate normal alignment | | | with no evidence of fracture, osseous lesion, significant disk space | | | narrowing or degenerative change. The soft tissues and odontoid | | | appear normal. IMPRESSION: NORMAL APPEARANCE. | | + + + + + + + + | Performing | Address | City/State/Zipcode | Phone Number | | Organization | | | | + + + + + | [facility] | [address] | [place], [place] | | | [place], [facility]ARE | [address] | [address] | | | TESTS | | | | + + + + + | [facility] | [address] | [place], [place] | | | TESTS | [address] | [address] | | + + + + + SPINE THORACIC 2 VIEWS (10/01/2005) + + + | Impressions | Performed At | + + + | SPINE THORACIC 2 VIEW AT 1416 HOURS THORACIC SPINE, 10/01/05 | [facility] | | HISTORY: Back pain. FINDINGS: AP, lateral, and swimmer's views | CARE TESTS | | of the thoracic spine show 12 rib-bearing thoracic vertebrae in | | | normal alignment with no evidence of osseous lesion, fracture, | | | significant degenerative change or disk space narrowing. The | | | paravertebral soft tissues appear normal. IMPRESSION: NO | | | SIGNIFICANT PATHOLOGY. Transcribed By: Armaan Mata : | | | [id number] : 1137 Approved By: | | + + + + + + + + | Performing | Address | City/State/Zipcode | Phone Number | | Organization | | | | + + + + + | [facility] | [address] | [place], [place] | | | [facility] [place] [facility] | [address] | [address] | | | TESTS | | | | + + + + + | [facility] | [address] [facility] [address] | [place], [place] | | | TESTS | [address] | [address] | | + + + + + MRI SPINE CERVICAL WO CONTRAST (10/01/2005) + + + | Impressions | Performed At | + + + | SPINE LUMBAR 2 VIEWS AT 1421 HOURS LUMBAR SPINE, 10/01/05 | [facility] | | HISTORY: Back pain. FINDINGS: AP and lateral views of the lumbar | CARE TESTS | | spine show five [id number]-[id number] lumbar vertebrae in normal alignment | | | with no evidence of fracture or osseous lesion. There is loss of | | | disk height at L5-S1, with a vacuum phenomenon and eburnation of the | | | endplates. There is no significant degenerative change of the | | | posterior elements. Surgical efren and clips are in the abdomen, | | | bilaterally. IMPRESSION: L5-S1 DEGENERATIVE DISK DISEASE AND | | | SPONDYLOSIS. Transcribed By: Armaan Marcy Esperanza : [id number] : | | | 1402 Approved By: | | + + + + + + + + | Performing | Address | City/State/Zipcode | Phone Number | | Organization | | | | + + + + + | [facility] | [address] | [place], [place] | | | [place]ARE | [address] | [address] | | | TESTS | | | | + + + + + | [facility] | [address] | [place], [place] | | | TESTS | [address] | [address] | | + + + + + MRI SHOULDERS BILAT WO CONT (09/02/2005) + + + | Impressions | Performed At | + + + | UPPER EXT JOINT W/O RT AT 1309 HOURS RIGHT SHOULDER MRI, | [facility] | | 09/02/05 HISTORY: Two years of lateral and superior shoulder pain | CARE TESTS | | without known injury. COMPARISON: Plain films of the right | | | shoulder 06/30/[address] Vasquez' office. TECHNIQUE: Axial GRASS | | | and T2 fat-suppressed, coronal T2 and gradient-echo sagittal | | | proton-density gradient-echo and T2 with fat suppression. | | | FINDINGS: The signal is normal in the cortical and cancellous bone. | | | The undersurface of the acromion is gently curved, and the acromion | | | is slightly anteriorly downsloping. It is not laterally downsloping. | | | There are no significant degenerative changes involving the AC | | | joint. A rotator cuff tear is not identified. There is very | | | slight high signal in the periphery of the infraspinatus and | | | supraspinatus muscles, as they abut each other over the humeral head. | | | This may be due to a mild strain. There is no fluid in the joint. | | | The biceps tendon has normal signal, morphology and location. The | | | junaid appear intact. IMPRESSION: QUESTION MILD STRAIN OF THE | | | SUPRA AND INFRASPINATUS MUSCLES. OTHERWISE NORMAL EXAMINATION. | | | Transcribed By: Adriana Pacheco : [id number] : 1215 Approved By: | | | | | + + + + + + + + | Performing | Address | City/State/Zipcode | Phone Number | | Organization | | | | + + + + + | [facility] | [address] | [place], [place] | | | [place] [facility] | [address] | [address] | | | TESTS | | | | + + + + + | [facility] | [address] | [place], [place] | | | TESTS | [address] | [address] | | + + + + + DC MRI LOWER EXTREM JT, W/O CONTRAST (08/22/2005) + + + | Impressions | Performed At | + + + | LOWER EXTREMITY JOINT RT W/O AT 1619 HOURS RIGHT KNEE MRI, | [facility] | | 08/22/05 HISTORY: Chronic posterior knee pain with intermittent | CARE TESTS | | locking. No known injuries. COMPARISON: Plain films from | | | Pedro' office dated 08/19/05. TECHNIQUE: Proton density sagittal | | | and coronal with and without fat suppression, axial proton density | | | with fat suppression. FINDINGS: The signal is normal in the | | | cortical and cancellous bone. The cartilage is well preserved over | | | the patellar facets and the femoral condyles. There is no sign of a | | | joint effusion. A popliteal cyst is not identified. The anterior and | | | posterior cruciate ligaments, medial and lateral collateral | | | ligaments and quadriceps and patellar tendons appear of normal | | | signal and morphology. No meniscal tears are seen. IMPRESSION: | | | NORMAL KNEE MRI. | | + + + + + + + + | Performing | Address | City/State/[facility] | Phone Number | | Organization | | | | + + + + + | [facility] | [address] | [place], [place] | | | [place] [facility]ARE | [address] | [address] | | | TESTS | | | | + + + + + | [facility] | [address] | [place], [place] | | | TESTS | [address] | [address] | | + + + + + NM BONE IMG WHOLE BODY (05/16/2005) + + + | Impressions | Performed At | + + + | BONE SCAN (SPECT) AT 1232 HOURS BONE SPECT, 05/16/05 | [facility] | | HISTORY: Chronic thoracic pain with compression fractures of T7, T8 | CARE TESTS | | and T9. COMPARISON: Plain films of the thoracic spine dated | | | 04/01/04. TECHNIQUE: 23.6 milliCi of technetium-99m MDP was | | | injected intravenously and a limited bone scan of the spine was made. | | | SPECT imaging was also performed in axial, coronal and sagittal | | | planes. FINDINGS: The planar images and the SPECT images show no | | | abnormal uptake in any of the vertebrae to suggest acute fracture. | | | A left lower rib tip shows increased uptake, possibly from some | | | minor trauma. This is approximately the seventh rib. IMPRESSION: | | | NO ABNORMAL UPTAKE IN THE SPINE | | + + + + + + + + | Performing | Address | City/State/Zipcode | Phone Number | | Organization | | | | + + + + + | [facility] | [address] | [place], [place] | | | [place] POINT OF CARE | [address] | [address] | | | TESTS | | | | + + + + + | [facility] | [address] | [place], [place] | | | TESTS | [address] | [address] | | + + + + + DC MRI LOWER EXTREM JT, W/O CONTRAST (03/05/2005) + + + | Impressions | Performed At | + + + | LOWER EXTREMITY JOINT LT W/O AT 0758 HOURS LEFT KNEE MRI, | | | 03/05/05 HISTORY: Anterolateral pain, giving way. COMPARISON: | | | MRI of the left knee dated 12/15/03. TECHNIQUE: Proton density | | | sagittal and coronal with and without fat suppression, axial proton | | | density with fat suppression. FINDINGS: The previously | | | demonstrated small joint effusion has resolved. The cartilage appears | | | preserved. There are small spurs extending from the tibial plateau, | | | medially and laterally, and from the femoral condyles. The ACL, | | | PCL, MCL, LCL, quadriceps tendon and patellar tendon all appear to | | | be within normal limits. Minimal high signal in the posterior horn of | | | the medial meniscus may represent some fraying. The appearance is | | | not changed from the prior study, however. There is no evidence of a | | | joint mouse or a bucket handle tear. IMPRESSION: EQUIVOCAL TEAR | | | OF THE POSTERIOR HORN OF THE MEDIAL MENISCUS. THIS IS DISCORDANT WITH | | | THE PATIENT'S PAIN. MILD DEGENERATIVE SPURRING. Transcribed | | | By: Armaan Mata : [id number] : 1416 Approved By: | | + + + + + + + + | Performing | Address | City/State/Zipcode | Phone Number | | Organization | | | | + + + + + | [facility] | [address] | [place], [place] | | | [place] [facility] | [address] | [address] | | | TESTS | | | | + + + + + MRI KNEE LT WO CONT (12/14/2004) + + + | Impressions | Performed At | + + + | LOWER EXTREMITY JOINT LT W/O AT 0906 HOURS LEFT KNEE MRI, | | | 12/15/03 HISTORY: Medial joint pain for one year, with locking and | | | swelling. COMPARISON: Plain films of the left knee from | | | Pedro' office dated 12/07/03 and MRI of the knee dated 05/27/00. | | | TECHNIQUE: Proton density sagittal and coronal with and without fat | | | suppression, axial proton density with fat suppression. FINDINGS: | | | The images are degraded by this patient's morbid obesity. There is | | | a modest amount of high signal in the posterior horn of the medial | | | meniscus, not significantly changed from the previous. A definite | | | tear is not identified. There is a small joint effusion. Mild | | | chondromalacia patella is suggested. The quadriceps and patellar | | | tendons, cruciate ligaments and collateral ligaments appear intact. | | | Normal fatty changes in the marrow are noted. There is some modest | | | high signal anterior to the patella in the soft tissues, suggesting | | | some edema. A popliteal cyst is not identified. IMPRESSION: SMALL | | | JOINT EFFUSION. QUESTION CHONDROMALACIA PATELLA. A DEFINITE MEDIAL | | | MENISCUS TEAR IS NOT IDENTIFIED. Transcribed By: Armaan | | | Nicole Saenz : [id number] : 1555 Approved By: | | + + + + + + + + | Performing | Address | City/State/Zipcode | Phone Number | | Organization | | | | + + + + + | [facility] | [address] | [place], [place] | | | [facility] [place] [facility] | [address] | [address] | | | TESTS | | | | + + + + + SPINE CERVICAL 2 VIEWS (04/01/2004) + + + | Impressions | Performed At | + + + | SPINE THORACIC 2 VIEW AT 0946 HOURS THORACIC SPINE, 04/01/04 | | | HISTORY: Mid-back pain for two weeks. FINDINGS: AP, lateral | | | and swimmer's views of the thoracic spine show normal alignment of | | | 12 thoracic vertebrae, with no evidence of disk space narrowing. | | | Modest endplate lipping involves nearly every level. Very slight | | | concave deformities involve T7, T8 and T9, age undetermined. There is | | | no retropulsion of bone. The pedicles are all well visualized. The | | | paravertebral soft tissues appear normal. IMPRESSION: MILD | | | BICONCAVE COMPRESSION DEFORMITIES OF T7, T8 AND T9, AGE | | | UNDETERMINED. MODEST ENDPLATE LIPPING. Transcribed By: Adriana | | | Aminata Pacheco : [id number] : 1505 Approved By: | | + + + + + + + + | Performing | Address | City/State/Zipcode | Phone Number | | Organization | | | | + + + + + | [facility] | [phone] | [place], [place] | | | [place], POINT [facility] CARE | [address] | [address] | | | TESTS | | | | + + + + + documented in this encounter Visit Diagnoses Not on filedocumented in this encounter"
--- OUTSIDE RECORDS SUMMARY | ~2020-01-25 | XMS | Encounter Summary ---
Demographics + + + | Address | [address] | | | [place] [address] | + + + | Home Phone [...] Team Providers + +------+ + | Care Vacuum Spindle Sander Name | Role | Phone | + +------+ + | Sulaiman Carrera MD | PCP | | + +------+ + Encounter Details +--------+ + + + + | Date | Type | Department | Care Team | Description | +--------+ + + + + | 06/24/ | Ancillary | Registration [id number] | Chris Padgett, | | | 2006 | Registratio | [address] [address] | [address] | | | | n | [place] Mailcode: [id number] | [address] | | | | | [place], [place] | [place], [place] | | | | | [address] | [address] | | | | | [phone] | [phone] | | | | | | | [...]
--- OUTSIDE RECORDS SUMMARY | ~2020-01-25 | XMS | Encounter Summary ---
Demographics + + + | Address | [address] | | | [place] [address] | + + + | Home Phone [...] Team Providers + +------+ + | Care Molder Inflated Ball Name | Role | Phone | + [...] | 2006 | TRANSCRIPTI | [facility] at [employer] | [address] [facility] | QUESTIONNAIRE | | | ON | for Health and | [facility], [place] | | | | | Healing [address] | [address] | | | | | [facility] | [phone] | | | | | Health and Healing, | | | | | | [facility] | | | | | | [place], [place] | | | | | | [address] | | | | | | [phone] | | | +--------+ + + + [...]
--- OUTSIDE RECORDS SUMMARY | ~2020-01-25 | XMS | Encounter Summary ---
Demographics + + + | Address | [address] | | | [place] [address] | + + + | Home Phone [...] Team Providers + +------+ + | Care Blending Tank Helper Name | Role | Phone | + +------+ + | Petrona Thapa | PCP | | | MD | | | + +------+ + Reason for Visit + +--------+ + | Reason | Onset | Comments | | | Date | | + +--------+ + | Medication Refill | 09/04/ | | | | 2019 | | + +--------+ + Encounter Details +--------+--------+ + + + | Date | Type | Department | Care Team | Description | +--------+--------+ + + + | 09/04/ | Refill | [facility] | Alanis, | Medication Refill | | 2019 | | MEDICINE [address] | MD Petrona | | | | | [place], | [address] | | | | | [place] [address] | [place] [address] | | | | | [phone] | [phone] | | | | | | | [...] | | | | | [place] [address] | | | | | | [phone] | | | | | | | | +--------+---------+ + + + documented as of this encounter Visit Diagnoses Not on filedocumented in this encounter"
--- OUTSIDE RECORDS SUMMARY | ~2020-01-25 | XMS | Encounter Summary ---
Demographics + + + | Address | [address] | | | [place] [address] | + + + | Home Phone [...] Team Providers + +------+ + | Care Water Treatment Technician Name | Role | Phone | + +------+ + | Sulaiman Carrera MD | PCP | | + +------+ + Encounter Details +--------+ + + + + | Date | Type | Department | Care Team | Description | +--------+ + + + + | 12/13/ | Document-Sc | UNKNOWN DEPARTMENT | Unknown . | | | 2005 | anned | [address] | | | | | | [address] | | | | | | [place], [place] | | | | | | [address] | | | +--------+ + + + [...] | + +--------+ + + + | ORDERS OTHER | | 12/13/2004 | | Results for this | | | | 12:00 AM | | procedure are in the | | | | PDT | | results section. | + +--------+ + + + documented in this encounter Results ORDERS OTHER (12/13/2004 12:00 AM PDT) + + + | Narrative | Performed At | + + + | | | + + + documented in this encounter Visit Diagnoses Not on filedocumented in this encounter"
--- OUTSIDE RECORDS SUMMARY | ~2020-01-25 | XMS | Encounter Summary ---
Demographics + + + | Address | [address] | | | [place] [address] | + + + | Home Phone | | + + + | Preferred Language | Unknown | + + + | Marital Status | Single | + + + | Synagogue Affiliation | ADV | + + + [...] Team Providers + +------+ + | Care Reamer Hand Name | Role | Phone | [...] Closed | | Neurology | Diagnoses | Petra, | Cesar, | | | | | Falling | NIHARIKA Jean | MD Taniya | | | | | Procedures | [address] | | | | | | CONSULT TO | [facility] Kov[facility] | | | | | | NEUROLOGY | [place], [place] | | | | | | | [address] | | +--------+--------+ + + + + Reason for Visit + + + | Reason | Comments | + + + | Back pain | | + + + Encounter Details +--------+---------+ + + + | Date | Type | Department | Care Team | Description | +--------+---------+ + + + | 10/03/ | Office | [facility] | Miranda Lambert, | Falling; | | 2009 | Visit | Pain Center at | ANP | Fibromyalgia; LBP | | | | [facility] | | (low back pain); | | | | [address] | | Encounter for | | | [facility] | | Long-Term (Current) | | | | and Healing, | | Use of Opioids; | | | | | | Hypothyroidism; | | | | Floor [place], [place] | | Metabolic syndrome X | | | | [address] | | 250.80; Major | | | | [phone] | | depressive disorder, | | | | | | recurrent episode, | | | | | | moderate (HCC); | | | | | | Adjustment disorder | | | | | | with anxiety; S/P | | | | | | Gastric Bypass | | | | | | Surgery November 22, 2003 | +--------+---------+ + + + Social History [...] + + + | Blood Pressure | 125/48 | 10/03/2009 1:07 PM | | | | | PDT | | + + + + + | Pulse | 84 | 10/03/2009 1:07 PM | | | | | PDT | | + + + + + | Temperature | 36.7 C (98 F) | 10/03/2009 1:07 PM | | | | | PDT | | + + + + + | Respiratory Rate | 16 | 10/03/2009 1:07 PM | | | | | PDT | | + + + + + | Oxygen Saturation | 98% | 10/03/2009 1:07 PM | | | | | PDT | | + + + + + | Inhaled Oxygen | - | - | | | Concentration | | | | + + + + + | Weight | 96.2 kg (212 lb) | 10/03/2009 1:07 PM | | | | | PDT | | + + + + + | Height | 175.3 cm (5' 9") | 10/03/2009 1:07 PM | | | | | PDT | | + + + + + | Body Mass Index | 31.31 | 10/03/2009 1:07 PM | | | | | PDT | | + + + + + documented in this encounter Patient Instructions Patient Instructions Miranda Lambert ANP - 10/03/2009 2:08 PM PDTGabapentin 300 mg taper in the following manner: Take 300 mg, twice a day for 3 days Take 300 mg, once a day for 2 days then stop. Schedule an appointment with Dr. Cesar SHEEHAN [facility] Neurology - If you continue to fall 1 week after stopping the gabapentin Use your walker in preference to the cane. Continue with self care eating small frequent regular meals with snacking between Follow up with Dr. Brenda SHEEHAN to review other recommendations. documented in this encounter Progress Notes Miranda Lambert ANP - 10/03/2009 1:25 PM PDTFormatting of this note might be different fr om the original. 10/03/2009 Belinda Meehan is a 49 y.o. female [facility] Return Visit Chief Complaint: Chief Complaint Patient presents with Back pain History of Present Illness: Belinda Meehan is a 49 y.o. 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 Belinda Meehan is here today for a follow up visit to review chronic pain management plan of care. Since prior visit 06/21/08 this condition has worsened since stopping opioids two w eeks ago . She does not have new pain complaints on this visit. 07/27/09, then 03/14/10 She reports he is refusing to see me. "he's looked over the paper s and doesn't need to see you" She does not recall when the falling started, Has hit head. " I black out and don't rememb er any of it" Fell Reports no pain medications the past two weeks. I have a probl em with pharmacy keeping up with the quantity of pain medications. Oxycontin 40 mg 1 pill bid and oxycodone 2 every 4-6 hrs averaged 2 pills every 6 hr 2-4 per day. Last 6 months been to ED estimates 6-8 times for falling. Reports treatment ice pack, Di agnostics done were x rays of back no head imaging [facility]. Denies other medical visit s panic attacks, heart racing palpitations. Lives alone. Does not remember going down or p ushing button to call ambulance or putting stretcher and c-collar on me or taking it off me at the hospital "I have no idea". Reports left leg pain from the spine "spine has shifted to the left a little bit" Pain I h ave it all the time. Some places worse than others. Waking with migraines the last couple of weeks. Reports recurrent ear infections with sore throat and swelling left neck seen by PA [facility] "cleared up with antibiotics" Expectations for this visit include: not sure, find our why falling? The worst pain today is located all over mostly back and headaches. A Brief Pain Inventory and a pain drawing has be completed, which I reviewed. [facility] Brief Pain Inventory: (ten= worst possible pain or complete interference) Right Now: 8 (10/03/091312) Least in 24 hours: 5 (10/03/091312) Worst in 24 hours: 8 (10/03/091312) Average: 60 (10/03/091312) % Relief (med/treat): 8 (10/03/091312) General Activity: 8 (10/03/091312) Mood: 8 (10/03/091312) Walking Ability: 3 (10/03/091312) Normal Work: 10 (10/03/09 1313) Relations with Others: 8 (10/03/09 1313) Enjoyment of Life: 7 (10/03/09 1313) Sleep: 9 (10/03/09 131) Treatment since last visit includes: 1. Medication management: Robaxin bid, OTC denies use 2. Physical Rehabilitation: non exercise routine, "would do more if if was nice outside" 3. Mental Health care: Counsellor finding it no help 4. Dr. Ricky SHEEHAN [facility] did spine surgery last seen 08/14/09 "she said something can be done waiting for some product to put in the disc space" 5. Dr. Pedro Gonsales for the locking knees. 6. Surgery [facility] tumor left shoulder blade removed Review of Systems: Bones, Joints, and Muscles: Fatigue "some days worse than other" uses can and walker at ho me using more with falling, joint pain, muscle pain, stiffness and swelling legs Gastrointestinal System: nausea, abdominal pain poor appetite irregular eating scheduled, skips breakfast: polyps found on colonoscopy done last month. Genitourinary System: negative Urinary Incontinence: Stress incontinences Nervous System: numbness, weakness, vertigo and headache, poor balance. Psychiatric History: depressed mood, sleep disturbance, decreased interest in previously e njoyable activities, decreased energy, concentration and decreased or increased appetite Frequent falling unclear onset, or etiology. Has not fallen since being off opioids the last two weeks 09/05/09 last fall blacked out Locking knee can take her down no blackouts at that time Nothing to warn her she will black out, amnesia after falls, No loss of bladder of bowel c ontrol Negative history of seizures Hx of Migraines evaluated by this clinic Quit Amitriptyline a yr ago due to frequent falling Denies CT dizziness, palpitations, Anxiety disorder denies panic attacks Depression denies suicidal ideation, no plans or intentions Started gabapentin 08/14/09 Dr García prescribed for back pain instructed to stopped this Since prior visit, there have been no changes in past medical history, past surgical histor y, family history, or social history. Current outpatient prescriptions Medication Sig Dispense Refill aspirin chewable (BABY [...] 1 tablet (40 mg) by oral route twice daily gabapentin 300 mg Oral Tablet Take 300 mg by mouth three times daily. INDERAL LA 120 mg Oral Capsule,Sustained Action 24 hr Take 120 mg by mouth once daily a t bedtime. levothyroxine 50 mcg Oral Tablet Take 1 Tab by mouth once daily. 30 Tab 12 methocarbamol 750 mg Oral Tablet Take 1-2 Tabs by mouth three times daily. Multivitamin Oral Tablet 1 tab by mouth twice daily POTASSIUM CHLORIDE SR 20 MEQ TAB, PARTICLES/CRYSTALS take 1 tablet (20meq) by oral rout e once daily with food promethazine 25 mg Oral Tablet 1 tab by mouth as needed risedronate (ACTONEL) 35 mg Oral Tablet tablet Take 1 Tab by mouth every seven days. 12 12 senna-docusate (SENNA WITH DOCUSATE SODIUM) 8.6-50 mg Oral Tablet Take 2 Tabs by mouth two times daily. 60 2 sucralfate (CARAFATE) 1 gram Oral Tablet Take 1 Tab by mouth before meals. 120 1 VITAMIN C 500 MG CHEWABLE TAB four times a day Side effects: dizziness and falling Past Medical History Diagnosis Date Chronic abdominal pain on Oxycodone, NSAIDs, ASA RUQ u/s at OSH reportedly nl panc, bile ducts, liver; ct abd/pel normal, Colorectal polyps Internal hemorrhoid Benign tumor of colon 2005 endoscopy Vertebral fracture T7,8,9 Xray T spine 2004 Optic nerve hemorrhage left eye Sleep apnea [...] Asthma 493.9 Past Surgical History Procedure Date Hx salpingo-oophorectomy Colonoscopy 03/2006 Hx tonsillectomy Pr d&c after delivery Pr inject trigger point, 1 or 2 Hx knee replacement 02/2007 Left knee Hx knee replacement 08/2007 right knee Hx lumbar fusion 05/2008 [id number] with bone spur removals Hx appendectomy Hx cholecystectomy Hx section Hx hysterectomy Gastric bypass Mayra Padgett wt 278 01/18 Paniculectomy Family History Problem Relation Cancer Mother Heart Father Additional Family History Father Migraine Additional Family History Mother Migraine Taniya Guerrero MD [facility] Neurology 2007 evaluation of migraines: Impression: Belinda Barnes is a 48 y.o. female with a 30 year history of headache. She is on significant doses of daily narcotics. In addition, she is on 10 Fioricet a day, which cont ains caffeine. She likely has rebound headaches on top of her migraine headaches. She has been on a variety of preventative medicines, but they haven't helped. Their effic acy is probably less given her continued use of pain medicines. She complains of poor sleep and in the past was on Amitriptiline, which helped. She may b enefit from going back on this once she can come off the Wellbutrin, which she is on for smo damon cessation (although she still smokes). Plan: Advised to come off Fioricet. Consider coming off Wellbutrin and going on Amitriptiline for sleep and migraine prevention . She was given information on nonpharmacologic treatment of migraine, including acupuncture, acupressure, biofeedback, massage, butterbur, riboflavin and feverfew. I also gave her the names of 3 headache specialists in [place]- Dr. Koby García, Dr. Dakota Sweet and Dr. Evaristo Nichols. No follow up was made with me. Physical Examination: BP 125/48 | Pulse 84 | Temp(Src) 36.7 C (98 F) (Oral) | Resp 16 | Ht 1.753 m (5' 9") | Wt 96.163 kg (212 lb) | SpO2 98% Body mass index is 31.31 kg/(m^2). General appearance: Alert in no acute distress, flat affect, well groomed, pleasant Sighing often Romberg: negative EOMI, CN 2 through 12 in tact Able to stand on left foot only, able to sqwat Stable gait with cane, nervous without it Mechanical back pain with extension and rotation No cervical lymph node swelling or masses Clear oropharynx Non tender sinuses Impression: E888.9H Falling 729.1AV Fibromyalgia 724.2AF LBP (low back pain) V58.69 Encounter for Long-Term (Current) Use of Opioids 244.9AQ Hypothyroidism 250.80 Metabolic syndrome X 250.80 296.32 Major depressive disorder, recurrent episode, moderate 309.24 Adjustment disorder with anxiety V45.86N S/P Gastric Bypass Surgery November 22, [address] Gutierrez to do a workup on falling. He has not seen her since 07/27/09, so I suspect this has not been done since I spoke with him 09/20/09. Any number of things could be contributing to Belinda falling. It is more than likely due t o side effects of gabapentin, Dr Grover started treatment for back pain prior to episodes of "blackouts". Other differential could be increased intensity and frequency of migraines. She has been evaluated for these in the past by a neurologist Dr. Taniya Guerrero here at [facility] at that time headaches were due to medication rebound with assistant terminal manager use of opioids and m igraine abortive agents. Other differentials are hypoglycemia hx of gastric bypass, stable weight since 02/22/09, ne garth has been the best at regulating her diet. Is thyroid function normalized? Of note Anu rooney has not fallen the past two weeks since being off all opioids, I recommend she stay off of these at least till the etiology of her falling is confirmed. Paralleling stopping opioi ds there has been an increase in her chronic pain and migraines. Most of her pain is due t o fibromyalgia, and there is no evidence to support assistant terminal manager benefit of opioids for this pa in condition I would like to see if her headaches will improve in time also. Historically , Belinda has had poor sleep patterns, disturbance with pain and insomnia, Hx of sleep apnea resolved with weight loss after gastric bypass surgery. Cognitive Behavioral therapy, biofe edback, exercise, can help improved sleep. My recommendations are: taper off the gabapentin as instructed, if after a week, falling as not resolved, to schedule a follow up appointment with [facility] neurologists Dr. Guerrero, for falls workup. Dr. Gutierrez please monitor metabolic and endocrine function and medications affecting these systems. I discussed the importance of sleep hygiene, regular nutritious meals, limiting stress, and management of depression. She is well groomed, dress is appropriate, has reduced smoking, appears to be taking care of herself, was coherent, thought processes, comprehnsion and sp eech intact, Affect is flat. She reports personal concerns about falling and lack of medica l care to find out why. She is seeing mental health counsellor for depression however feel s no benefit. She denies anxiety or panic attacks, suicidal plans or intentions. Recommendations/Plan: I spent 30 minutes with the patient of which more than 50% spent in consultation, Discussi on, addressing questions and counselling/education. 1. Instructions given to taper off gabapentin 2. Order for [facility] neurology Dr. Taniya Guerrero if falls continue after stopping gabapentin 3. I recommend a review of medications: including diuretics and potassium supplements, anti hypertensives and antidepressants. 4. Order an in home safety evaluation as most of falls have been at home - encourage use of walker and cane - encourage returning to aqua therapy for a routine exercise program 5. Schedule follow up if needed - The pateint was asked to call the clinic with any concerns or questions. 6. No sedating medications or opioids till etiology of falls is found and episodes resolve [facility] Mail code CH [facility]P [facility] [address] [place] [id number] Ailyn Foster 1:03 PM PDTCMA History: PMH/PSH/SH/FH review Patient states see has been blacking out , also off of all pain medication x 2 weeks 1. Has your pain changed from your [...] + | Diagnosis | + + | Falling Unspecified fall | + + | Fibromyalgia Mylagia and myositis, unspecified | + + | LBP (low back pain) Lumbago | + + | Encounter for Long-Term (Current) Use of Opioids Encounter for long-term (current) | | use of other medications | + + | Hypothyroidism Unspecified hypothyroidism | + + | Metabolic syndrome X 250.80 Type II or unspecified type diabetes mellitus with other | | specified manifestations, not stated as uncontrolled | + + | Major depressive disorder, recurrent episode, moderate (HCC) Major depressive | | disorder, recurrent episode, moderate | + + | Adjustment disorder with anxiety | + + | S/P Gastric Bypass Surgery November 22, 2003 Bariatric surgery status | + + documented in this encounter
--- OUTSIDE RECORDS SUMMARY | ~2020-01-25 | XMS | Encounter Summary ---
Demographics + + + | Address | [address] | | | [place] [address] | + + + | Home Phone | | + + + | Preferred Language | Unknown | + + + | Marital Status | | + + + | Uatsdin Affiliation | 1001 | + + + | Race | Unknown | + + + | Ethnic Group | Unknown | + + + Author + + + | Author | [facility] | | | and [place] | + + + | Organization | [facility] | | | [...] Providers + +------+ + | Care Senior Accounting Analyst Name | Role | Phone | + +------+ + | Petrona Thapa | PCP | | | MD | | | + +------+ + Reason for Visit + +--------+ + | Reason | Onset | Comments | | | Date | | + +--------+ + | Medication Question | 02/22/ | | | | 2018 | | + +--------+ + Encounter Details +--------+ + + + + | Date | Type | Department | Care Team | Description | +--------+ + + + + | 02/22/ | Telephone | [facility] | Alanis, | Medication Question | | 2018 | | MEDICINE [address] | MD Petrona | | | | | [place], | [address] [place] | | | | | [place] [address] | [place] [address] | | | | | [phone] | [phone] | | | | | | | [...] Telephone Encounter - Maggie Montoya LPN - 02/23/2019 3:31 PM PDTResults on MD desk for re view. Please advise ele phone Encounter - Bob Melgar - 02/23/2019 11:18 AM PDTPatient called to see if h er ultrasounds results have been reviewed by her primary. Please call to discuss. Electronic ally signed by Bob Tinoco at 02/23/2019 11:19 AM PDTTelephone Encounter - Buzz Montoya LPN - 02/22/2019 1:07 PM PDTPatient was not able to take her morning medications du e to needing to be fasting for her US this am. Patient took them at 11am. Wanted to know whe n ok to take her next dose. I let her know to continue her evening medications at next sched uled time. Patient understands and accepts Electronically signed by Maggie Montoya LPN at 03/2019 1:20 PM PDTTelephone Encounter - Rebekah Maldonado D - 02/22/2019 12:00 PM PDTPatient w timothyld like to speak with the nurse. Patient has ultrasound done today and has not take her me dication on time. Patient questions to when she can start her medication. Patient would not give me the medications she has question on. Please advise documented in this encounter Plan of Treatment +--------+---------+ + + + | Date | Type | Specialty | Care Team | Description | +--------+---------+ + + + | 02/15/ | Office | Internal Medicine | Alanis, | | | 2019 | Visit | | MD Petrona | | | | | | [address] [place] [address] [place] | | | | | | [place] [address] | | | | | | [phone] | | | | | | | | +--------+---------+ + + + documented as of this encounter Visit Diagnoses Not on filedocumented in this encounter"
--- OUTSIDE RECORDS SUMMARY | ~2020-01-25 | XMS | Encounter Summary ---
Demographics + + + | Address | [address] | | | [place] [address] | + + + | Home Phone [...] Providers + +------+ + | Care Medical Equipment Sales Name | Role | Phone | + [...] as of this encounter Discharge Summaries Interface, Machine Strap Buckler In - 08/30/2005 2:07 AM PST [id number] GEOVANNI Barnes Admission Date: 07/24/2005 Discharge Date: [...] weeks in clinic, call for an appointment. Joanna Ritchie M.D. / [id number] / [id number] / [id number] / Electronically signed by Chris Padgett 08-29-2005 03:28:23 PM documented i n this encounter Plan of Treatment Not on filedocumented as of this encounter Visit Diagnoses Not on filedocumented in this encounter"
--- OUTSIDE RECORDS SUMMARY | ~2020-01-25 | XMS | Encounter Summary ---
Demographics + + + | Address | [address] | | | [place] [address] | + + + | Home Phone | | + + + | Preferred Language | Unknown | + + + | Marital Status | | + + + | Amish Affiliation | 1001 | + + + | Race | Unknown | + + + | Ethnic Group | Unknown | + + + Author + + + | Author | [facility] | | | and [place] | + + + | Organization | [facility] | | [...] Team Providers + +------+ + | Care Lead Pastor Name | Role | Phone | + [...] + + | 11/24/ | Telephone | [facility] | Alanis, | Wrist Pain | | 2019 | | MEDICINE [address] | MD Petrona | | | | | [place], | [address] [facility] | | | | | [place] [address] | [place] [address] | | | | | [phone] | [phone] | | | | | | | [...] PDTPatient notified of xray order faxed to [facility]. Electronically signed by Maggie Montoya LPN at 020 12:13 PM PDTTelephone Encounter - Petrona Thapa MD - 11/25/2019 11:08 AM PDTRx for x-ray ordered. elephone Encounter - Tiesha Rasmussen - 11/25/2019 10:30 AM PDTPatient called stating that she would like to talk to the nurse about her fall she had a week ago. P atient states that her right wrist is hurting her and would like to know if Dr. Emmy leyva d to [place] her and possibly have an [...] Petrona | | | | | | [facility] [address] | | | | | | [place] [address] | | | | | | [phone] | | | | | | | | +--------+---------+ + + + documented as of this encounter Visit Diagnoses Not on filedocumented in this encounter"
--- OUTSIDE RECORDS SUMMARY | ~2020-01-25 | XMS | Encounter Summary ---
Demographics + + + | Address | [address] | | | [place] [address] | + + + | Home Phone | | + + + | Preferred Language | Unknown | + + + | Marital Status | Single | + + + | Sikhism Affiliation | ADV | + + + [...] Team Providers + +------+ + | Care Garland Maker Name | Role | Phone | + +------+ + | Pedrito Gutierrez MD | PCP | | + +------+ + Encounter Details +--------+ + + + + | Date | Type | Department | Care Team | Description | +--------+ + + + + | 03/10/ | Orders Only | [facility] | Anup Reyes MD | Chronic Abdominal | | 2005 | | Gastroenterology/Hep | | Pain; Iron | | | | atology [address] | | Deficiency | | | | [address] | | | | | | Mailcode: [id number] | | | | | | [facility] | | | | | | [address] | | | | | | [place], [place] | | | | | | [address] | | | | | | [phone] | | | +--------+ + + + [...] | | + +------+--------+ + + | [facility] COLLECT, | Lab | Routin | Chronic Abdominal | Ordered: 03/10/2006 | | VENIPUNCTURE | | e | Pain | | + +------+--------+ + + documented as of this encounter Procedures + +--------+ + + + | Procedure Name | Priori | Date/Time | Associated Diagnosis | Comments | | | ty | | | | + +--------+ + + + | INR | Routin | 03/10/2006 | Chronic Abdominal | Results for this | | | e | 2:42 PM | Pain | procedure are in the | | | | PDT | | results section. | + +--------+ + + + | CBC ONLY | Routin | 03/10/2006 | Chronic Abdominal | Results for this | | | e | 2:42 PM | Pain Iron | procedure are in the | | | | PDT | Deficiency | results section. | + +--------+ + + + | FERRITIN | Routin | 03/10/2006 | Chronic Abdominal | Results for this | | | e | 2:42 PM | Pain Iron | procedure are in the | | | | PDT | Deficiency | results section. | + +--------+ + + + | PTH, SERUM | Routin | 03/10/2006 | Chronic Abdominal | Results for this | | | e | 2:42 PM | Pain | procedure are in the | | | | PDT | | results section. | + +--------+ + + + | TRIGLYCERIDES, | Routin | 03/10/2006 | Chronic Abdominal | Results for this | | PLASMA | e | 2:42 PM | Pain | procedure are in the | | | | PDT | | results section. | + +--------+ + + + | CALCIUM, PLASMA | Routin | 03/10/2006 | Chronic Abdominal | Results for this | | | e | 2:42 PM | Pain | procedure are in the | | | | PDT | | results section. | + +--------+ + + + documented in this encounter Results TRIGLYCERIDES (03/10/2006 2:42 PM PDT) + + + + + + | Component | Value | Ref Range | Performed | Pathologist | | | | | At | Signature | + + + + + + | TRIGLYCERID | 66Comment: | <200 mg/dL | [facility] | | | ES | Triglyceride Reference | | DEPARTMENT | | | | Range: | | OF | | | | Normal: <150 | | PATHOLOGY | | | | Borderline | | | | | | High: 150 - 199 | | | | | | | | | | | | High: 200 - 499 | | | | | | | | | | | | Very High: >=500 | | | | + + + + + + + + | Specimen | + + | | + + + + + + + | Performing | Address | City/State/Zipcode | Phone Number | | Organization | | | | + + + + + | [facility] DEPARTMENT OF | [address] | [place] [address] | | | PATHOLOGY | [address] | | | + + + + + | [facility] DEPARTMENT | [address] | [place] [address] | | | PATHOLOGY | [address] | | | + + + + + PROTHROMBIN TIME (03/10/2006 2:42 PM PDT) + + + + + + | Component | Value | Ref Range | Performed | Pathologist | | | | | At | Signature | + + + + + + | INR | 1.01Comment: | 0.90 - 1.20 INR | [facility] | | | | PT INR Therapeutic | | DEPARTMENT | | | | ranges for full | | OF | | | | anticoagulation: | | PATHOLOGY | | | | INR for | | | | | | Venous Thromboembolism | | | | | | | | | | | | (2.0-3.0)INR | | | | | | INR for most | | | | | | patients with mech. | | | | | | valves (2.5-3.5)INR | | | | + + + + + + + + | Specimen | + + | Blood | + + + + + + + | Performing | Address | City/State/Zipcode | Phone Number | | Organization | | | | + + + + + | [facility] | [address] [place] [address] | [place] [address] | | | PATHOLOGY | [address] | | | + + + + + | [facility] | [address] [facility] | [place] [address] | | | PATHOLOGY | [address] | | | + + + + + CBC ONLY WITH PLATELET (03/10/2006 2:42 PM PDT) + +-------+ + + + | Component | Value | Ref Range | Performed | Pathologist | | | | | At | Signature | + +-------+ + + + | WHITE CELL | 7.6 | 4.4 - 11.0 K/cu | [facility] | | | COUNT | | mm | DEPARTMENT | | | | | | OF | | | | | | PATHOLOGY | | + +-------+ + + + | RED CELL | 4.87 | 4.00 - 5.20 | [facility] | | | COUNT | | M/cu mm | DEPARTMENT | | | | | | OF | | | | | | PATHOLOGY | | + +-------+ + + + | HEMOGLOBIN | 15.5 | 12.0 - 16.0 | [facility] | | | | | g/dL | DEPARTMENT | | | | | | OF | | | | | | PATHOLOGY | | + +-------+ + + + | HEMATOCRIT | 45.6 | 36.0 - 46.0 % | [facility] | | | | | | DEPARTMENT | | | | | | OF | | | | | | PATHOLOGY | | + +-------+ + + + | MCV | 93.5 | 80.0 - 96.0 fL | [facility] | | | | | | DEPARTMENT | | | | | | OF | | | | | | PATHOLOGY | | + +-------+ + + + | MCHC | 34.1 | 33.4 - 35.5 | [facility] | | | | | g/dL | DEPARTMENT | | | | | | OF | | | | | | PATHOLOGY | | + +-------+ + + + | RDW | 11.9 | 11.5 - 15.0 % | [facility] | | | | | | DEPARTMENT | | | | | | OF | | | | | | PATHOLOGY | | + +-------+ + + + | PLATELET | 231 | 150 - 400 K/cu | [facility] [...] DEPARTMENT OF | [address] | [place] [address] | | | PATHOLOGY | [address] | | | + + + + + | [facility] DEPARTMENT OF | [address] | [place] [address] | | | PATHOLOGY | [address] | | | + + + + + CALCIUM, PLASMA (03/10/2006 2:42 PM PDT) + +-------+ + + + | Component | Value | Ref Range | Performed | Pathologist | | | | | At | Signature | + +-------+ + + + | CALCIUM, | 9.5 | 8.5 - 10.5 | [facility] | [...] | + + + + + | [facility] DEPARTMENT | [address] [facility] | [place] [address] | | | PATHOLOGY | [address] | | | + + + + + | [facility] | [address] [facility] | [place] [address] | | | PATHOLOGY | [address] | | | + + + + + PTH, SERUM (03/10/2006 2:42 PM PDT) + + + + + + | Component | Value | Ref Range | Performed | Pathologist | | | | | At | Signature | + + + + + + | PTH, SERUM | 61.0Comment: Test | 15.0 - 75.0 | | | | | performed by [facility] | pg/mL | | | | | [facility]. | | | | + + + + + + + + | Specimen | + + | | + + + + + + + | Performing | Address | City/State/Zipcode | Phone Number | | Organization | | | | + + + + + | [facility] | [address] | [place] [address] | | | LABORATORY | | | | + + + + + FERRITIN (03/10/2006 2:42 PM PDT) + + + + + + | Component | Value | Ref Range | Performed | Pathologist | | | | | At | Signature | + + + + + + | FERRITIN | 37Comment: Test | 10 - 291 ng/mL | | | | | performed at [facility] | | | | | | [facility] | | | | | | [facility] | | | | + + + + + + + + | Specimen | + + | | + + + + + + + | Performing | Address | City/State/Zipcode | Phone Number | | Organization | | | | + + + + + | [facility] | [address] | [place] [address] | | | LABORATORY | | | | + + + + + documented in this encounter Visit Diagnoses + + | Diagnosis | + + | Chronic abdominal pain Abdominal pain, unspecified site | + + | Iron deficiency Other disorders of iron metabolism | + + documented in this encounter"
--- OUTSIDE RECORDS SUMMARY | ~2020-01-25 | XMS | Encounter Summary ---
Demographics + + + | Address | [address] | | | [place] [address] | + + + | Home Phone [...] Team Providers + +------+ + | Care Aerospace Physiological Technician Name | Role | Phone | + +------+ + | Petrona Thapa | PCP | | | MD | | | + +------+ + Reason for Visit + +--------+ + | Reason | Onset | Comments | | | Date | | + +--------+ + | Medication Refill | 12/11/ | | | | 2019 | | + +--------+ + Encounter Details +--------+--------+ + + + | Date | Type | Department | Care Team | Description | +--------+--------+ + + + | 12/11/ | Refill | [facility] | Alanis, | Medication Refill | | 2019 | | MEDICINE [address] | MD Petrona | | | | | [place], | [address] | | | | | [place] [address] | [place] [address] | | | | | [phone] | [phone] | | | | | | | [...] Telephone Encounter - Maggie Montoya LPN - 12/12/2019 10:44 AM PDTrx sentElectronically sig yesenia by Maggie Montoya LPN at 12/12/2019 10:44 AM PDTTelephone Encounter - Adriana Cantor - 12/12/2019 10:21 AM PDTMedication Sumatriptan Dose 100 mg Quantity 9 Amount of medication remaining 0 Last Refill unknown Pharmacy [facility] Last appointment 11/15/2019 Next appointment 02/16/2020 Caller Belinda, patient Patient called requesting prescription refill. documented in this enc ounter Plan of Treatment +--------+---------+ + + + | Date | Type | Specialty | Care Team | Description | +--------+---------+ + + + | 02/15/ | Office | Internal Medicine | Alanis, | | | 2019 | Visit | | MD Petrona | | | | | | [address] [place] [address] | | | | | | [place] [address] | | | | | | [phone] | | | | | | | | +--------+---------+ + + + documented as of this encounter Visit Diagnoses + + | Diagnosis | + + | Migraine without aura and without status migrainosus, not intractable Migraine | | without aura, without mention of intractable migraine without mention of status | | migrainosus | + + documented in this encounter"
--- OUTSIDE RECORDS SUMMARY | ~2020-01-25 | XMS | Encounter Summary ---
Demographics + + + | Address | [address] | | | [place] [address] | + + + | Home Phone [...] Team Providers + +------+ + | Care Spearer Name | Role | Phone | + [...] [address] | | | | | [facility] | [place], [place] | | | | | [address] | [address] | | | | | [address] | [phone] | | | | | [facility] | | | | | | Physician's | | | | | | [facility] [place], | | | | | | [place] [address] | | | | | | [phone] | | | +--------+--------+ + + + [...]
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
--- OUTSIDE RECORDS SUMMARY | ~2020-01-25 | XMS | Encounter Summary ---
Demographics + + + | Address | [address] | | | [place] [address] | + + + | Home Phone [...] Team Providers + +------+ + | Care Service Delivery Director Name | Role | Phone | [...] as of this encounter Progress Notes Interface, Machine Lead Burner In - 06/06/2005 2:05 AM [facility] [id number] [facility] Date: 05/29/2005 Clinic: Bariatric [...] a day. She has had workups in [place] including CT and upper GI with small-bowel followthrough which have reportedly been negative. She has some recent changes in her medications including addition of a calcium channel colby and diclofenac. She says her symptoms gets worse every time she takes pain medicine. She is currently taking oxycodone. Her primary doctor in [place] is Dr. Gutierrez. Physical Examination: Vital Signs: [...] will try to arrange for her in [place], so she does not have to come out here. We will call Dr. Gutierrez to try to arrange for this and followup her within 3 months. The patient was seen with Dr. Padgett. Karen Cisneros M.D. Chris Padgett M.D. / SHARIF [id number] / [id number] / [id number] / [id number] Electronically signed by Chris Padgett 06-05-2005 05:29:09 PM documented i n this encounter Plan of Treatment Not on filedocumented as of this encounter Visit Diagnoses Not on filedocumented in this encounter"
--- OUTSIDE RECORDS SUMMARY | ~2020-01-25 | XMS | Encounter Summary ---
Demographics + + + | Address | [address] | | | [place] [address] | + + + | Home Phone | | + + + | Preferred Language | Unknown | + + + | Marital Status | Single | + + + | Yazidism Affiliation | ADV | + + + [...] Team Providers + +------+ + | Care Historical Records Administrator Name | Role | Phone | + +------+ + | Pedrito Gutierrez MD | PCP | | + +------+ + Reason for Visit +--------+ + | Reason | Comments | +--------+ + | Other | Recovering from pneumonia, wants to get back on vitamins | +--------+ + Encounter Details +--------+ + + + + | Date | Type | Department | Care Team | Description | +--------+ + + + + | 07/27/ | Telephone | [facility] | Chris Padgett, | Other (Recovering | | 2006 | | Center [address] | [address] | from pneumonia, | | | | Avjennifer Mailcode: [facility] | [address] | wants to get back on | | | | [facility] | [place], [place] | vitamins) | | | | and Healing, | [address] | | | | | [place] [address] [facility] | [phone] | | | | | Floor [place], [place] | | | | | | [address] | | | | | | [phone] | | | +--------+ + + + [...]
--- OUTSIDE RECORDS SUMMARY | ~2020-01-25 | XMS | Encounter Summary ---
Demographics + + + | Address | [address] | | | [place] [address] | + + + | Home Phone | | + + + | Preferred Language | Unknown | + + + | Marital Status | | + + + | Methodist Affiliation | 1001 | + + + | Race | Unknown | + + + | Ethnic Group | Unknown | + + + Author + + + | Author | [facility] | | | and [place] | + + + | Organization | [facility] | | [...] Team Providers + +------+ + | Care Calender Inspector Name | Role | Phone | [...] + + | Closed | Specialty | Allergy and | Diagnoses | | [place], | | | Services | Immunology | Multiple | [place]ajt | Cm Andino MD | | | Required | | food | i, | [address] | | | | | allergies | [place] | [address] | | | | | [address] | [place] | | | | | | [address] | [address] | | | | | | [place], | Phone: | | | | | | [place] | [phone] | | | | | | [address] | | | | | | | Phone: | | | | | | | [phone] | | | | | | | Fax: | | | | | | | [phone] | | +--------+ + + + + + Encounter Details +--------+ + + + + | Date | Type | Department | Care Team | Description | +--------+ + + + + | 06/18/ | Orders Only | [facility] | Alanis, | Multiple food | | 2019 | | MEDICINE [address] | MD [place] | allergies (Primary | | | | [address] [place], | [address] [place] | Dx) | | | | [place] [address] | [place] [address] | | | | | [phone] | [phone] | | | | | | | [...] | | | | | [place] [address] | | | | | | [phone] | | | | | | | | +--------+---------+ + + + + + +--------+ + + | Name | Type | Priori | Associated Diagnoses | Order Schedule | | | | ty | | | + + +--------+ + + | [place] | Outpatient | Routin | Multiple food | Ordered: 06/18/2018 | | Clinic Allergy | Referral | e | allergies | | | Asthma Immunology - | | | | | | AMB Referral | | | | | + + +--------+ + + documented as of this encounter Visit Diagnoses + + | Diagnosis | + + | Multiple food allergies - Primary Other adverse food reactions, not elsewhere | | classified | + + documented in this encounter"
--- OUTSIDE RECORDS SUMMARY | ~2020-01-25 | XMS | Encounter Summary ---
Demographics + + + | Address | [address] | | | [place] [address] | + + + | Home Phone [...] Team Providers + +------+ + | Care Heel Sorter Name | Role | Phone | [...] as of this encounter Progress Notes Interface, Minute Clerk In - 01/12/2005 10:09 AM PDT [id number] [facility] Date: 12/12/2004 Clinic: Endocrinology PHONE CONTACT NOTE The patient called me today after having surgery last week here at [facility]. Her concern was the development of 2 [...] cushion which I have ordered today through [employer], phone #[phone] and fax #[phone]. Today, the patient will monitor the decubiti closely and will be in touch with myself and her other physician depending on the progress. She also still has [address], which may be removed in one or two weeks when she returns to the Surgery Clinic at [facility]. Beto Meeks M.D. PD / HS [id number] / [id number] / [id number] / [id number] cc: Chris Padgett M.D. documented i n this encounter Plan of Treatment Not on filedocumented as of this encounter Visit Diagnoses Not on filedocumented in this encounter"
--- OUTSIDE RECORDS SUMMARY | ~2020-01-25 | XMS | Encounter Summary ---
Demographics + + + | Address | [address] | | | [place] [address] | + + + | Home Phone [...] Team Providers + +------+ + | Care Still Operator Whiskey Name | Role | Phone | + +------+ + | Pedrito Gutierrez MD | PCP | | + +------+ + Encounter Details +--------+---------+ + + + | Date | Type | Department | Care Team | Description | +--------+---------+ + + + | 11/24/ | Office | Preoperative | 2, [facility] [address] | Other Specified | | 2007 | Visit | Medicine Clinic at | [facility] [address] | Pre-Operative | | | | [facility] 4th Floor [address] | [place] [address] | Examination; | | | | [address] | | Hemorrhagic Disorder | | | | Mailcode: CH4S | | due to Intrinsic | | | | [facility] | | Circulating | | | | and Healing, | | Anticoagulants | | | | Building 1,4th [facility] | | | | | | [place], [place] | | | | | | [address] | | | | | | [phone] | | | +--------+---------+ + + + [...] DEPARTMENT OF | [address] | [place] [address] | | | PATHOLOGY | [address] | | | + + + + + | [facility] DEPARTMENT OF | [address] | [place] [address] | | | PATHOLOGY | [address] [...] | + + + + + | [facility] DEPARTMENT OF | [address] [facility] | [place] [address] | | | PATHOLOGY | [address] | | | + + + + + | [facility] DEPARTMENT OF | [address] [facility] | [place] [address] | | | PATHOLOGY | [address] [...] DEPARTMENT OF | [address] | [place] [address] | | | PATHOLOGY | [address] | | | + + + + + | [facility] DEPARTMENT OF | [address] | [place] [address] | | | PATHOLOGY | [address] [...] Performed At | + + + | [id number] Estimated GFR > 60 mL/min/1.73 sq m if non- | [facility] | | [place] [id number] Estimated GFR > 60 mL/min/1.73 sq m if | DEPARTMENT OF | | [place] GFR is estimated using the MDRD equation [...] + + + + | [facility] | [address] [facility] | [place] [address] | | | PATHOLOGY | [address] | | | + + + + + | [facility] | [address] [place] [address] | [place] [address] | | | PATHOLOGY | [address] [...] + + | Ordered by an | [facility] DEPT OF | | unspecified provider. Please click on view image for the detailed | CARDIOLOGY | | interpretation from [employer] results. | | |results. | | | | | + + + + + + + + | Performing | Address | City/State/Zipcode | Phone Number | | Organization | | | | + + + + + | [facility] DEPT OF | [address] | [place], [place] | | | CARDIOLOGY | [address] | [address] | | + + + + + | [facility] DEPT OF | [address] | [place], [place] | | | CARDIOLOGY | [address] | [address] | | + + + + + documented in this encounter Visit Diagnoses + + | Diagnosis | + + | Other specified pre-operative examination | + + | Hemorrhagic disorder due to intrinsic circulating anticoagulants | + + documented in this encounter
--- OUTSIDE RECORDS SUMMARY | ~2020-01-25 | XMS | Encounter Summary ---
Demographics + + + | Address | [address] | | | [place] [address] | + + + | Home Phone [...] + + + | Author | [facility] | + + + | Organization | [facility] | + + + | [...] Team Providers + +------+ + | Care Electromedical Equipment Technician Name | Role | Phone | + +------+ + PCP | Unavailable | + +------+ + Encounter Details +--------+ + + + + | Date | Type | Department | Care Team | Description | +--------+ + + + + | 01/11/ | Results | Endocrinology, | Beto Meeks MD | | | 2001 | Only | Diabetes and | [address] | | | | | Clinical Nutrition | [place], [place] | | | | | [address] | [address] | | | | | Loop Mailcode: OPC5 | [phone] | | | | | Outpatient Clinic | | | | | | [facility] | | | | | | [place] [address] | | | | | | [phone] | | | +--------+ + + + [...] + | COMPLETE METABOLIC | Routin | 01/11/2002 | | Results for this | | SET | e | 3:50 PM | | procedure are in the | | (NA,K,CL,CO2,BUN,CRE | | PDT | | results section. | | AT,GLUC,CA,AST,ALT,B | | | | | | DEYA TOTAL,ALK | | | | | | PHOS,ALB,PROT TOTAL) | | | | | + +--------+ + + + | ALDOLASE, SERUM | Routin | 01/11/2002 | | Results for this | | | e | 3:50 PM | | procedure are in the | | | | PDT | | results section. | + +--------+ + + + | HEMOGLOBIN A1C, | Routin | 01/11/2002 | | Results for this | | BLOOD | e | 3:50 PM | | procedure are in the | | | | PDT | | results section. | + +--------+ + + + | LIPASE, PLASMA | Routin | 01/11/2002 | | Results for this | | | e | 3:50 PM | | procedure are in the | | | | PDT | | results section. | + +--------+ + + + | CK, PLASMA | Routin | 01/11/2002 | | Results for this | | | e | 3:50 PM | | procedure are in the | | | | PDT | | results section. | + +--------+ + + + | AMYLASE, PLASMA | Routin | 01/11/2002 | | Results for this | | | e | 3:50 PM | | procedure are in the | | | | PDT | | results section. | + +--------+ + + + documented in this encounter Results ALDOLASE, SERUM, REF (01/11/2002 3:50 PM PDT) + + + + + + | Component | Value | Ref Range | Performed | Pathologist | | | | | At | Signature | + + + + + + | ALDOLASE | 10.0 (H)Comment: Test | 1.5 - 8.1 U/L | | | | SERUM | performed by [facility] | | | | | | [facility]. | | | | + + + + + + + + | Specimen | + + | | + + + + + + + | Performing | Address | City/State/Zipcode | Phone Number | | Organization | | | | + + + + + | [facility] | [address] | [place], [place] | | | [facility] | | [address] | | + + + + + HEMOGLOBIN A1C (01/11/2002 3:50 PM PDT) + +-------+ + + + | Component | Value | Ref Range | Performed | Pathologist | | | | | At | Signature | + +-------+ + + + | HEMOGLOBIN | 6.3 | <7.1 % | | | | [...] + + + + + | [facility] | [address] | [place] [address] | | | LABORATORY | | | | + + + + + COMP METABOLIC SET (01/11/2002 3:50 PM PDT) + +---------+ + + + | Component | Value | Ref Range | Performed | Pathologist | | | | | At | Signature | + +---------+ + + + | GLUCOSE, | 90 | 65 - 110 mg/dL | [facility] | | | PLASMA | | | DEPARTMENT | | | (LAB) | | | OF | | | | | | PATHOLOGY | | + +---------+ + + + | BUN, PLASMA | 8 | 6 - 20 mg/dL | [facility] [...] +---------+ + + + | ALBUMIN, | 4.2 | 3.5 - 4.7 g/dL | [facility] [...] +---------+ + + + | BILIRUBIN | 0.9 | 0.3 - 1.2 mg/dL | [facility] | | | TOTAL | | | DEPARTMENT | | | | | | OF | | | | | | PATHOLOGY | | + +---------+ + + + | ALK PHOS | 76 | 42 - 98 U/L | [facility] | | | | | | DEPARTMENT | | | | | | OF | | | | | | PATHOLOGY | | + +---------+ + + + | AST(SGOT) | 63 (H) | 15 - 41 U/L | [facility] [...] +---------+ + + + | POTASSIUM, | 3.1 (L) | 3.5 - 5.1 | [facility] [...] DEPARTMENT OF | [address] | [place] [address] | | | PATHOLOGY | [address] | | | + + + + + | [facility] DEPARTMENT OF | [address] | [place] [address] | | | PATHOLOGY | [address] | | | + + + + + LIPASE (01/11/2002 3:50 PM PDT) + +--------+ + + + | Component | Value | Ref Range | Performed | Pathologist | | | | | At | Signature | + +--------+ + + + | LIPASE | 21 (L) | 22 - 51 U/L | [facility] | | | (LAB) | | | DEPARTMENT | | | | | | OF | | | | | | PATHOLOGY | | + +--------+ + + + + + | Specimen | + + | | + + + + + + + | Performing | Address | City/State/Zipcode | Phone Number | | Organization | | | | + + + + + | [facility] | [address] [facility] | [place] [address] | | | PATHOLOGY | [address] | | | + + + + + | [facility] | [address] [facility] | [place] [address] | | | PATHOLOGY | [address] | | | + + + + + AMYLASE, PLASMA (01/11/2002 3:50 PM PDT) + +--------+ + + + | Component | Value | Ref Range | Performed | Pathologist | | | | | At | Signature | + +--------+ + + + | AMYLASE,MARIZA | 34 (L) | 36 - 128 U/L | [facility] | | | SMA | | | DEPARTMENT | | | | | | OF | | | | | | PATHOLOGY | | + +--------+ + + + + + | Specimen | + + | | + + + + + + + | Performing | Address | City/State/Zipcode | Phone Number | | Organization | | | | + + + + + | [facility] DEPARTMENT OF | [address] | [place] [address] | | | PATHOLOGY | [address] | | | + + + + + | [facility] DEPARTMENT | [address] | [place] [address] | | | PATHOLOGY | [address] | | | + + + + + CK (01/11/2002 3:50 PM PDT) + +---------+ + + + | Component | Value | Ref Range | Performed | Pathologist | | | | | At | Signature | + +---------+ + + + | CK | 779 (H) | 38 - 234 U/L | [facility] [...] + + + | [facility] | [address] | [place] [address] | | | PATHOLOGY | [address] | | | + + + + + | [facility] | [address] | [place] [address] | | | PATHOLOGY | [address] | | | + + + + + documented in this encounter Visit Diagnoses Not on filedocumented in this encounter"
--- OUTSIDE RECORDS SUMMARY | ~2020-01-25 | XMS | Encounter Summary ---
Demographics + + + | Address | [address] | | | [place] [address] | + + + | Home Phone | | + + + | Preferred Language | Unknown | + + + | Marital Status | | + + + | Adventist Affiliation | 1001 | + + + | Race | Unknown | + + + | Ethnic Group | Unknown | + + + Author + + + | Author | [facility] | | | and [place] | + + + | Organization | [facility] | | | [...] Team Providers + +------+ + | Care Paper Roll Machine Operator Name | Role | Phone [...] + + | 11/17/ | Office | [facility] | [place], | Bilateral leg edema | | 2018 | Visit | MEDICINE [address] | MD [place] | (Primary Dx); Venous | | | | AVE [place], | [address] [facility] | insufficiency; | | | | [place] [address] | [place] [address] | Fatigue, unspecified | | | | [phone] | [phone] | type | | | | | [...] encounter Progress Notes [place] Thapa MD - 11/17/2017 10:45 AM PDTFormatting of [...] FINGER TRIGGER RELEASE 2003 FINGER TRIGGER RELEASE 2009 GASTRIC BYPASS SURGERY [...] Cla Maddie Thapa MD 1,000 mcg at 11/17/17 1116 ALLERGIES Allergies Allergen Reactions Codeine Sulfate Nausea Only Levofloxacin Hives, Itching and Rash Amitriptyline Hcl Other (See Comments) Confused and questionable for seizures Zqljvnmmhb-Zfax-Lrmdtsye Cephalexin Hives Duloxetine Migraines and nausea Ketorolac Hives Morphine Swelling Ropinirole Hcl Hives Tramadol Hcl Nausea Only Rzqrcoqlbe-Wioj-Bjhbirxk Hives and Rash Ciprofloxacin Hives and Rash [...] Note: Parts of this documentwere created using [employer] speech recognition software. As a r esult, there may be unintended word spelling errors. Every attempt was made to correct the dictation. INOLisa Vizcaino CMA - 11/17/2017 10:45 AM PDTFormatting of [...] | | | | | [place] [address] | | | | | | [phone] | | | | | | | [...] | Quantitativ | quantitative D-Dimer | | [facility] | | | e | assay has [...] [address] | [place] | [phone] | | [facility] | | [address] | | | - LABORATORY | | [...] + | [facility] | [address] | [place], [place] | [phone] | | [facility] | | [address] | | | - LABORATORY | | [...] | third generation TSH | uIU/mL | [facility] | | | | test. | | [...] [address] | [place] | [phone] | | [facility] | | [address] | | | - LABORATORY | | [...] [facility] | | | | | | [facility] | | | | | | MEDICAL | | | | | | CENTER - | | | | | | LABORATORY | | + + + + + + | Glucose | 105 | 70 - 109 mg/dL | [facility] | | | | | | [facility] | | | | | | MEDICAL | | | | | | CENTER - | | | | | | LABORATORY | | + + + + + + | BUN | 5 (L) | 7 - 18 mg/dL | [facility] | | | | | | [facility] | | | | | | [...] | non- | FILTRATION | mL/min/1.73m2 | [facility] | | | Irish | RATE,ESTIMATED | | MEDICAL | | | | mL/min/1.69l0Dwsl than | | CENTER - | | [...] | + + + + + | [facility] | [address] | [place] | [phone] | | [facility] | | [address] | | | - LABORATORY | | [...] | | Cells | | | [facility] | | | | | | MEDICAL | | | | | | CENTER - | | | | | | LABORATORY | | + +-------+ + + + | Red Blood | 4.58 | 3.70 - 5.20 | [facility] | | | Cells | | M/uL | [facility] | | | | | | MEDICAL | | | | | | CENTER - | | | | | | LABORATORY | | + +-------+ + + + | Hemoglobin | 15.1 | 11.5 - 16.0 | [facility] | | | | | g/dL | [facility] | | | | [...] | | Neutrophils | | | [facility] | | [...] | | Neutrophils | | K/uL | [facility] | | | | | | MEDICAL | | | | | | CENTER - | | | | | | LABORATORY | | + +-------+ + + + | Absolute | 1.80 | 0.60 - 3.20 | [facility] | | | Lymphocytes | | K/uL | [facility] | | | | | | MEDICAL | | | | | | CENTER - | | | | | | LABORATORY | | + +-------+ + + + | Absolute | 0.40 | 0.00 - 1.00 | [facility] | | | Monocytes | | K/uL | [facility] | [...] | | Basophils | | K/uL | [facility] | [...] + + | [facility] | [address] | [place] | [phone] | | [facility] | | [address] | | | - LABORATORY | | [...] | | | | First dose on [facility] 10/15/17 at 1215 | | | | [...]
--- OUTSIDE RECORDS SUMMARY | ~2020-01-25 | XMS | Encounter Summary ---
Demographics + + + | Address | [address] | | | [place] [address] | + + + | Home Phone | | + + + | Preferred Language | Unknown | + + + | Marital Status | | + + + | Alevism Affiliation | 1001 | + + + | Race | Unknown | + + + | Ethnic Group | Unknown | + + + Author + + + | Author | [facility] | | | and [place] | + + + | Organization | [facility] | | | [...] Team Providers + +------+ + | Care Radiology Technologist Name | Role | Phone | + [...] Diagnoses | | [facility] | | | Services | Therapy / | Impingement | Emmy-Tajt | Pt Op [address] | | | Required | Rehabilitatio | syndrome of | i, | Readlyn | | | | n | right | [place] | [place] Zhao, | | | | | shoulder | , MD [address] | [place] [address] | | | | | Procedures | [address] | Phone: | | | | | PT | [place], | [phone] | | | | | | [place] | Fax: | | | | | | [address] | [phone] | | | | | | Phone: | | | | | | | [phone] | | | | | | | Fax: | | | | | | | [phone] | | +--------+ + + + + + Reason for Visit + + + | Reason | Comments | + + + | Shoulder Pain | feeling weak and tired with a migrain head ach since this | | | morning. | + + + Encounter Details +--------+---------+ + + + | Date | Type | Department | Care Team | Description | +--------+---------+ + + + | 09/22/ | Office | [facility] | Alanis, | Impingement syndrome | | 2018 | Visit | MEDICINE [address] | MD Petrona | of right shoulder | | | | [address] [place], | [address] [place] | (Primary Dx); Chest | | | | [place] [address] | [place] [address] | pain, unspecified | | | | [phone] | [phone] | type | | | | | [...] + + + | Blood Pressure | 130/62 | 09/22/2017 9:42 AM | | | | | PDT | | + + + + + | Pulse | 60 | 09/22/2017 9:42 AM | | | | | PDT | | + + + + + | Temperature | - | - | | + + + + + | Respiratory Rate | 12 | 09/22/2017 9:42 AM | | | | | PDT | | + + + + + | Oxygen Saturation | - | - | | + + + + + | Inhaled Oxygen | - | - | | | Concentration | | | | + + + + + | Weight | 96.1 kg (211 lb 13.8 | 09/22/2017 9:42 AM | | | | oz) | PDT | | + + + + + | Height | 172.7 cm (5' 8") | 09/22/2017 9:42 AM | | | | | PDT | | + + + + + | Body Mass Index | 32.21 | 09/22/2017 9:42 AM | | | | | PDT | | + + + + + documented in this encounter Progress Petrona Riojas MD - 09/22/2017 9:45 AM PDTFormatting of this note might be d ifferent from the original. CHIEF COMPLAINT Chief Complaint Patient presents with Shoulder Pain feeling weak and tired with a migrain head ach since this morning. HPI Belinda Meehan is a 57 y.o. y/o female who presents today for a couple of issues: She would like a refill of the nitroglycerin prescription which she has received in the pas t for episodes of chest pain. Current prescription has . He hasn't had to use any i n recent months. She also complains of right shoulder discomfort and pain and inability to lift her left upp er extremity above horizontal. No known injuries. She states she had similar symptoms in t he past on the left and she required removal of a bone growth in her left scapula. She has been taking pain medications from a pain clinic on a regular basis and that helps t o some extent of the shoulder issue but functionally she finds it difficult to do the things she needs to do on a daily basis. She has been feeling more fatigued recently. REVIEW OF SYSTEMS See HPI for further [...] apnea Spondylosis with myelopathy, lumbar region Stroke ([facility]) Syncope Tremor Type II or unspecified [...] as needed for Nausea. 120 tablet 2 ondansetron (ZOFRAN) 4 mg tablet take 1 tablet by mouth every 6 hours 120 tablet 2 potassium chloride (K-DUR) 20 [...] 5 mg into the vein once. YEARLY No current facility-administered medications for this visit. ALLERGIES Allergies Allergen Reactions Codeine Sulfate Nausea Only Levofloxacin Hives, Itching and Rash Amitriptyline Hcl Other (See Comments) Confused and questionable for seizures Hzfrrzllgr-Asny-Zcghmedz Cephalexin Hives Duloxetine Migraines and nausea Ketorolac Hives Morphine Swelling Ropinirole Hcl Hives Tramadol Hcl Nausea Only Kuxmdfrfpm-Hdfj-Rsitsill Hives and Rash Ciprofloxacin Hives and Rash Clarithromycin Hives and Rash Clindamycin Hcl Hives and Rash Doxycycline Rash Levofloxacin Hives and Rash Penicillins Hives and Rash Sulfamethoxazole-Trimethoprim Hives and Rash PHYSICAL EXAM VITAL SIGNS: BP 130/62 | Pulse 60 | Resp 12 | Ht 1.727 m (5' 8") | Wt 96.1 kg (211 lb 1 3.8 oz) | BMI 32.21 kg/m Constitutional: Well developed, Well nourished, No acute distress, Pleasant female. Cardiovascular: Regular rate & rhythm, No murmurs, No rubs, No gallops. No lower extremitie s edema. Thorax & Lungs: Normal breath sounds, No respiratory distress, No wheezing, No rubs. Skin: Warm, Dry, No erythema, No rash. Musculoskeletal: Significantly decreased range of motion on abduction in the right upper ex tremity at the shoulder level, she cannot abduct above horizontal. Has some pain on palpati on of the posterior right shoulder joint as well as in the upper back on the right. No join t swelling or redness. Neurologic: Alert & oriented x 3, No focal deficits noted. Psychiatric: Affect normal, Judgment normal, Mood normal. ASSESSMENT & PLAN 1. Impingement syndrome of right shoulder - XR Shoulder Right 2 + Vw; Future - * [facility] Physical Therapy - AMB Referral; Future 2. Chest pain, unspecified type - nitroglycerin (NITROSTAT) 0.4 mg SL tablet; Place 1 tablet under the tongue every 5 minut es as needed for Chest pain. Dispense: 25 tablet; Refill: 3 FOLLOW-UP Return in about 6 months (around 03/24/2018). Note: Parts of this documentwere created using [employer] speech recognition software. As a r esult, there may be unintended word spelling errors. Every attempt was made to correct the dictation. documentjennifer colin in this encounter Plan of Treatment +--------+---------+ + + + | Date | Type | Specialty | Care Team | Description | +--------+---------+ + + + | 02/15/ | Office | Internal Medicine | Alanis, | | | 2019 | Visit | | MD Petrona | | | | | | [address] [place] [address] | | | | | | [place] [address] | | | | | | [phone] | | | | | | | | +--------+---------+ + + + + + +--------+ + + | Name | Type | Priori | Associated Diagnoses | Order Schedule | | | | ty | | | + + +--------+ + + | * [facility] | Outpatient | Routin | Impingement | Expected: | | Therapy - AMB | Referral | e | syndrome of right | 09/22/2017, Expires: | | Referral | | | shoulder | 09/22/2018 | + + +--------+ + + documented as of this encounter Results XR Shoulder Right 2 + Vw (09/22/2017 10:35 AM PDT) + + | Specimen | + + | | + + + + + | Narrative | Performed At | + + + | XR SHOULDER RIGHT 2 + VW 09/22/2017 10:35 AM HISTORY: R shoulder | [facility] | | pain and inability of abduct above 90 degrees.. COMPARISON: None. | | | FINDINGS: There are no acute osseous findings. There are mild | | | degenerative changes of the AC joint. The glenohumeral joint is | | | intact. Degenerative cysts are seen of the humeral head. Bone | | | mineralization is normal. Visualized chest shows no acute findings. | | | Soft tissue structures are unremarkable. IMPRESSION - Mild | | | degenerative changes of AC joint. Dictated and Signed by: Sarath | | | MD Austin Electronically signed: 09/22/2017 10:37 AM | | + + + + + | Procedure Note | + + | Tawanda, Rad Results In - 09/22/2017 10:40 AM PDT XR SHOULDER RIGHT 2 + VW 09/22/2017 | | 10:35 AMHISTORY: R shoulder pain and inability of abduct above 90 degrees..COMPARISON: | | None.FINDINGS:There are no acute osseous findings. There are mild degenerative changes | | of theAC joint. The glenohumeral joint is intact. Degenerative cysts are seen of | | thehumeral head. Bone mineralization is normal. Visualized chest shows no acutefindings. | | Soft tissue structures are unremarkable. IMPRESSION -Mild degenerative changes of AC | | joint.Dictated and Signed by: Sarath Avila MD Electronically signed: 09/22/2017 10:37 AM | |There are no acute osseous findings. There are mild degenerative changes of the | |AC joint. The glenohumeral joint is intact. Degenerative cysts are seen of the | |humeral head. Bone mineralization is normal. Visualized chest shows no acute | |findings. Soft tissue structures are unremarkable. | | | |IMPRESSION - | |Mild degenerative changes of AC joint. | | | |Dictated and Signed by: Sarath Avila MD | | Electronically signed: 09/22/2017 10:37 AM | + + + +---------+ + + | Performing | Address | City/State/Zipcode | Phone Number | | Organization | | | | + +---------+ + + | [facility] | | | | + +---------+ + + documented in this encounter Visit Diagnoses + + | Diagnosis | + + | Impingement syndrome of right shoulder - Primary Other affections of shoulder region, | | not elsewhere classified | + + | Chest pain, unspecified type | + + documented in this encounter
--- OUTSIDE RECORDS SUMMARY | ~2020-01-25 | XMS | Encounter Summary ---
Demographics + + + | Address | [address] | | | [place] [address] | + + + | Home Phone [...] + + | Author | [facility] | + + + | Organization | [facility] | + + + | Address [...] Team Providers + +------+ + | Care Agile Qa Tester Name | Role | Phone | + +------+ + | Pedrito Gutierrez MD | PCP | | + +------+ + Reason for Visit + + + | Reason | Comments | + + + | Lab Results | Jose L Padgett patient | + + + Encounter Details +--------+ + + + + | Date | Type | Department | Care Team | Description | +--------+ + + + + | 06/01/ | Telephone | [facility] | Nuris Cardenas ANP | Lab Results (Jose L | | 2005 | | Center [address] | | Venkateney patient) | | | | Ave Mailcode: CH4S | | | | | | [facility] | | | | | | and Healing, | | | | | | Building [address], [address]th | | | | | | Floor [place], [place] | | | | | | [address] | | | | | | [phone] | | | +--------+ + + + [...]
--- OUTSIDE RECORDS SUMMARY | ~2020-01-25 | XMS | Encounter Summary ---
Demographics + + + | Address | [address] | | | [place] [address] | + + + | Home Phone [...] Providers + +------+ + | Care Rating Officer Name | Role | Phone | [...] | | Procedures | [address] | Center for | | | | | CONSULT TO | [place], [place] | Health and | | | | | NEUROLOGY | [address] | Healing, | | | | | | | Building 1, | | | | | | | 8th Floor | | | | | | | [place], [place] | | | | | | | [address] | | | | | | | Phone: | | | | | | | [phone] | | | | | | | Fax: | | | | | | | [phone] | +--------+--------+ + + + + Reason for Visit +--------+ + | Reason | Comments | +--------+ + | Pain | back, legs, headache | +--------+ + Encounter Details +--------+---------+ + + + | Date | Type | Department | Care Team | Description | +--------+---------+ + + + | 08/12/ | Office | [facility] | Delfina Molina, | Migraine Headache | | 2006 | Visit | Pain Center at | ANP | (Primary Dx); | | | | [facility] | | Spondylosis with | | | | [address] | | Myelopathy, Lumbar | | | | [place] [facility] | | Region; Neck Pain; | | | | and Healing, | | Right shoulder | | | | Building | | rotator cuff strain; | | | | Floor [place], [place] | | Fibromyalgia | | | | [address] | | syndrome 729.1; | | | | [phone] | | Depression | +--------+---------+ + + + Social History [...] might be different from lesli gomez. 08/12/2006 Belindavera Meehan is a 46 y.o. female [facility] Pain Center Return Visit [...] in two weeks or PRN DELFINA MOLINA [facility] Mail code CH 4P [facility] [address] [facility] [address] Alisha Marquez - 7 8:25 AM [...]
--- OUTSIDE RECORDS SUMMARY | ~2020-01-25 | XMS | Encounter Summary ---
Demographics + + + | Address | [address] | | | [place] [address] | + + + | Home Phone [...] + + + | Author | [facility] | + + + | Organization | [facility] | + + + | [...] Team Providers + +------+ + | Care Calciner Operator Helper Name | Role | Phone | + +------+ + | Pedrito Gutierrez MD | PCP | | + +------+ + Reason for Visit + + + | Reason | Comments | + + + | Referral Needed | | + + + Encounter Details +--------+ + + + + | Date | Type | Department | Care Team | Description | +--------+ + + + + | 04/05/ | Telephone | [facility] | Beto Meeks MD | Referral Needed | | 2007 | | [facility] | [address] [place] | | | | | Center at Physicians | [place], [place] | | | | | [address] | [address] | | | | | [address] | [phone] | | | | | [facility] | | | | | | Physician's | | | | | | Pavilion [place], | | | | | | [place] [address] | | | | | | [phone] | | | +--------+ + + + [...]
--- OUTSIDE RECORDS SUMMARY | ~2020-01-25 | XMS | Encounter Summary ---
Demographics + + + | Address | [address] | | | [place] [address] | + + + | Home Phone [...] Team Providers + +------+ + | Care Career Center Director Name | Role | Phone [...] | Pain | Diagnoses | Miracle, | Armstrong, | | | | Management | LBP (low | NIHARIKA Jean | Lukasz Rhodes, PhD | | | | | back pain) | [address] | [address] | | | | | DJD | [address] | Ave | | | | | (degenerativ | [place], [place] | [place] | | | | | e joint | [address] | [address] | | | | | disease) of | | Phone: | | | | | knee Knee | | [phone] | | | | | pain Major | | Fax: | | | | | depressive | | [phone] | | | | | disorder, | [...] 04/28/ | Office | [facility] | Lukasz Charles, | Major Depressive | | 2007 | Visit | [address] | PhD [address] | Disorder, Recurrent | | | | Center for Health | [place], [place] | Episode, Mild (HCC); | | | | and Healing, | [address] | LBP (Low Back | | | | | [phone] | Pain); Migraine | | | | Floor [place], [place] | | Headache | | | | [address] | | | | | | [phone] | | | +--------+---------+ + + + [...] scheduled to come here after surgery. Diagnosis: [place] I: 1. (296.31) Major depressive disorder, recurrent, mild. 2. (309.24) Adjustment disorder with anxiety. 3. 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 [place] II: Deferred [place] III: abdominal pain, migraine headache, low back pain. [place] IV: low finances [place] V: GAF 55-60 Plan: return with next medical follow-up appointment. Check mood, pain, surgical recovery , relaxation, activity, distraction, eating. Ask about headaches, fainting, Thanksgiving. Continue cognitive/behavioral therapy. Total time spent with patient was approximately 45 minutes. LUKASZ CHARLES PHD [facility] [address] [facility], [address] [place] [address] documented in this encount Plan of Treatment + + +--------+ + + | Name | Type | Priori | Associated Diagnoses | Order Schedule | | | | ty | | | + + +--------+ + + | [facility]CHOTHERPY, | Procedures | Routin | Major Depressive | Ordered: 04/28/2008 | | OFFICE (61-32) | | e | Disorder, Recurrent | [...]
--- OUTSIDE RECORDS SUMMARY | ~2020-01-25 | XMS | Encounter Summary ---
Demographics + + + | Address | [address] | | | [place] [address] | + + + | Home Phone [...] Team Providers + +------+ + | Care Promotions Executive Name | Role | Phone | + +------+ + | Petrona Thapa | PCP | | | MD | | | + +------+ + Reason for Visit + +--------+ + | Reason | Onset | Comments | | | Date | | + +--------+ + | Medication Refill | 05/18/ | | | | 2016 | | + +--------+ + Encounter Details +--------+--------+ + + + | Date | Type | Department | Care Team | Description | +--------+--------+ + + + | 05/18/ | Refill | [facility] | Alanis, | Medication Refill | | 2016 | | MEDICINE [address] | MD Petrona | | | | | [place], | [address] [facility] | | | | | [place] [address] | [place] [address] | | | | | [phone] | [phone] | | | | | | | [...] Notes Telephone Encounter - FreeMaggie LPN - 05/18/2017 4:11 PM PSTrx called into [facility] [place]. Patient notified 4: 13 PM PSTTelephone Encounter - Free, Maggie Leonardo LPN - 05/18/2017 2:38 PM PSTPatient nam lopez of her [place], states having a lot of diarrhea. documented in this encounter Plan of Treatment +--------+---------+ + + + | Date | Type | Specialty | Care Team | Description | +--------+---------+ + + + | 02/15/ | Office | Internal Medicine | Alanis, | | | 2019 | Visit | | MD Petrona | | | | | | [address] [place] [address] [place] | | | | | | [place] [address] | | | | | | [phone] | | | | | | | | +--------+---------+ + + + documented as of this encounter Visit Diagnoses Not on filedocumented in this encounter"
--- OUTSIDE RECORDS SUMMARY | ~2020-01-25 | XMS | Encounter Summary ---
Demographics + + + | Address | [address] | | | [place] [address] | + + + | Home Phone [...] Team Providers + +------+ + | Care Online Facilitator Name | Role | Phone | + +------+ + | Pedrito Gutierrez MD | PCP | | + +------+ + Reason for Visit + + + | Reason | Comments | + + + | Follow-up Diabetic | | | Assessment | | + + + Encounter Details +--------+ + + + + | Date | Type | Department | Care Team | Description | +--------+ + + + + | 08/18/ | Telephone | [facility] | Miranda Lambert, | Follow-up Diabetic | | 2006 | | Pain Center at | ANP | Assessment | | | | [facility] | | | | | | [address] | | | | | | [facility] | | | | | | and Healing, | | | | | | Building , | | | | | | Floor [place], [place] | | | | | | [address] | | | | | | [phone] | | | +--------+ + + + [...]
--- OUTSIDE RECORDS SUMMARY | ~2020-01-25 | XMS | Encounter Summary ---
Demographics + + + | Address | [address] | | | [place] [address] | + + + | Home Phone [...] Providers + +------+ + | Care Supervisor Of Guidance And Testing Name | Role | Phone | + [...] | | | Center [facility] | [place], [place] | | | | | [address] | [address] | | | | | [address] | [phone] | | | | | [facility] | | | | | | Physician's | | | | | | Pavilion [place], | | | | | | [place] [address] | | | | | | [phone] | | | +--------+ + + + [...]
--- OUTSIDE RECORDS SUMMARY | ~2020-01-25 | XMS | Encounter Summary ---
Demographics + + + | Address | [address] | | | [place] [address] | + + + | Home Phone [...] + + | 01/11/ | Office | [facility] Comprehensive | Delfina Molina, | Left Knee Pain; DJD | | 2006 | Visit | Pain Center at | ANP | (Degenerative Joint | | | | [facility] | | Disease) of Knee; | | | | [address] | | Herniated Lumbar | | | | [place] [facility] | | Intervertebral Disc | | | | and Healing, | | L4-5; Spondylosis | | | | | | with Myelopathy, | | | | Floor [place], [place] | | Lumbar Region; | | | | [address] | | Fibromyalgia | | | | [phone] | | syndrome 729.1; | | | [...] Belinda Meehan is a 46 y.o. female [facility] Comprehensive Pain Center Return [...] facia pain working with exercises and her special services agent. Belinda Meehan is here today for a [...] until surgery pending 02/13 12/19. DELFINA MOLINA [facility] Comprehensive Pain Center Mail code CH 4P [place] [facility] and [address] [address] Ailyn Foster - 01/12/20 07 [...]
--- OUTSIDE RECORDS SUMMARY | ~2020-01-25 | XMS | Encounter Summary ---
Demographics + + + | Address | [address] | | | [place] [address] | + + + | Home Phone [...] Team Providers + +------+ + | Care Employment Specialist Name | Role | Phone | + +------+ + | Maria Esther Cintron MD | PCP | | + +------+ + Encounter Details +--------+ + + + + | Date | Type | Department | Care Team | Description | +--------+ + + + + | 09/21/ | Telephone | [facility] | Chris Padgett, | | | 2008 | | [place] [address] | [address] [facility] | | | | | [address] Mailcode: CH4S | [address] | | | | | Center for Health | [place], [place] | | | | | and Healing, | [address] | | | | | Building , 6th | [phone] | | | | | Floor [place], [place] | | | | | | [address] | | | | | | [phone] | | | +--------+ + + + [...]
--- OUTSIDE RECORDS SUMMARY | ~2020-01-25 | XMS | Encounter Summary ---
Demographics + + + | Address | [address] | | | [place] [address] | + + + | Home Phone [...] Team Providers + +------+ + | Care Med Peds Name | Role | Phone | + +------+ + | Pedrito Gutierrez MD | PCP | | + +------+ + Reason for Visit + + + | Reason | Comments | + + + | LBP - Low back pain | | + + + | Knee pain | | + + + | AP - Abdominal pain | | + + + | Neck pain | | + + + | Migraine | | + + + | Shoulder pain | | + + + Encounter Details +--------+---------+ + + + | Date | Type | Department | Care Team | Description | +--------+---------+ + + + | 06/21/ | Office | [facility] | Delfina Molina, | LBP (Low Back Pain) | | 2008 | Visit | Pain Center at | ANP | (Primary Dx); Spinal | | | | [facility] | | Fusion Lumbar spine | | | | [address] | | ; Hx Arthroplasty | | | | Center for [facility] | | of both Knees; | | | | and Healing, | | Fibromyalgia | | | | | | syndrome 729.1; | | | | Floor [place], [place] | | Abdominal Pain, | | | | [address] | | dumping syndrome Hx | | | | [phone] | | of gastric bypass; | | | | | | Dumping Syndrome; | | | | | | Diarrhea Following | | | | | | Gastrointestinal | | | | | | Surgery; Encounter | | | | | | for Long-Term | | | | | | (Current) Use of | | | | | | Opioids; Migraine | | | | | | Headache; Major | | | | | | Depressive Disorder, | | | | | | Recurrent Episode, | | | | | | Moderate (HCC); | | | | | | Hypothyroidism; | | | | | | Metabolic syndrome X | | | | | | 250.80; Adjustment | | | | | | Disorder with | | | | | | Anxiety; Iron | | | | | | Deficiency | +--------+---------+ + + + Social History [...] + + + | Blood Pressure | 110/68 | 06/21/2008 9:06 AM | | | | | PST | | + + + + + | Pulse | 67 | 06/21/2008 9:06 AM | | | | | PST | | + + + + + | Temperature | 37.1 C (98.7 F) | 06/21/2008 9:06 AM | | | | | PST | | + + + + + | Respiratory Rate | 16 | 06/21/2008 9:06 AM | | | | | PST | | + + + + + | Oxygen Saturation | 99% | 06/21/2008 9:06 AM | | | | | PST | | + + + + + | Inhaled Oxygen | - | - | | | Concentration | | | | + + + + + | Weight | 83.5 kg (184 lb) | 06/21/2008 9:06 AM | | | | | PST | | + + + + + | Height | 175.3 cm (5' 9") | 06/21/2008 9:06 AM | | | | | PST | | + + + + + | Body Mass Index | 27.17 | 06/21/2008 9:06 AM | | | | | PST | | + + + + + documented in this encounter Patient Instructions Patient Instructions Delfina Molina ANP - 06/21/2008 10:03 AM PSTTrial of pregablin [Lyri ca]: Starting dose of 75 mg, 1 capsule [75 mg] twice a day; if after 5 days no adverse effec ts [ ataxia, disturbance in thinking, hand and feet swelling, weight gain, drowsiness/dizzin ess, constipation, visual disturbance] increase as tolerated till taking 2 capsules [150 mg] twice a day. documented in this encounter Progress Notes Delfina Molina ANP - 06/21/2008 9:36 AM PSTFormatting of this note might be different fr om the original. 06/21/2008 Belinda Meehan is a 48 y.o. female [facility] Return Visit Chief Complaint: Chief Complaint Patient presents with LBP - Low back pain Knee pain AP - Abdominal pain Neck pain Migraine Shoulder pain History of Present Illness: Belinda Meehan [...] management plan of care. Since prior visit Belinda reports being in more pain in the lower back and all over, she states "where am I not having pain". . She does have new pain complaints on this visit. She reported that she is healing well from her back surgery L5 S1 fusion with richard ne spur removal on 05/15/2008 Dr. Betty Thomas MD [facility], after having problems with nu mbness, burning stingling pain in right leg developed in april. She reports walking schuyler r however feels she has lost strength but has regained normal feeling int he right leg. Expectations for this visit include: discuss medication prescribing needs. She reports Dr Esperanza toledo is not willing to increase her opioid dose despite her having surgery and more pain. She reports that she is inactive as her surgeon told her she can do anything, she repored f eeling better wearing her support brace and takes it off to shower and sleep. She has not b een going to the pool since surgery reported she can't execise for "at least 6 weeks". She states being miserable with the pain did acknowledge that her right leg pain had improved wi th the surgery and she was glad about that. The worst pain today is located in the right lower skull and described as constant the past month and half GOTTLIEB prior to this was two weeks "I ended up on the floor" "that scared me to " she believe she lost consciousness and call 911 when she came too, prior to that had migraine with dry heaves. She reported headache the past month She is seeing a migraine sp ecialist this week in [place], Dr Lucio Nichols. Next area of chronic pain is in the shoulders hips problems wsitting and lying too long Surgeon told her not to do PT or activites for 6 weeks Lower back pain described as a constant throbbing toothache radiates to both hips not down the leg. Intermittent pain both legs tops of thighs . A Brief Pain Inventory and a pain drawing has be completed, which I reviewed. [facility] Brief Pain Inventory: (ten= worst possible pain or complete interference) Right Now: 10 (06/21/08 9:16 AM) Least in 24 hours: 7 (06/21/08 9:16 AM) Worst in 24 hours: 10 (06/21/08 9:16 AM) % Relief (med/treat): 10 (06/21/08 9:16 AM) General Activity: 10 (06/21/08 9:16 AM) Mood: 10 (06/21/08 9:16 AM) Walking Ability: 8 (06/21/08 9:16 AM) Normal Work: 10 (06/21/08 9:16 AM) Relations with Others: 9 (06/21/08 9:16 AM) Enjoyment of Life: 10 (06/21/08 9:16 AM) Sexual Activity: 0 (06/21/08 9:16 AM) Sleep: 9 (06/21/08 9:16 AM) Treatment since last visit includes: 1. Medication management:Oxycontin 40 Q12hr and oxycdoone 5 mg, 2 tablet 4 times per day so me days more. #120 per month Trial of TCAs, helped with sleeping, gabapentin "forgetting a lot", Not tried Lyrica 2. Physical Rehabilitation: on hold for 6 weeks post op 3. Mental Health care: Dr Ogden psychology [facility] last visit today . She reported that she has done some sewing and she found a lot of pleasure in it. We discus sed distraction and the benefits of staying busy. Her mood has been generally stable but she has had some sleep disturbance. She is eager to resume physical therapy. Ms. Meehan has ongoing depression and frustration. She is not suicidal. She is struggling with daily headaches and poor sleep. She is optimistic about healing from surgery and she an ticipates more benefit as she becomes more active. Plan: return with next medical follow-up appointment. Check mood, pain, surgical recovery, relaxation, activity, distraction, eating. Ask about headache specialist, physical therapy. Continue cognitive/behavioral therapy. Since prior visit, Belinda Barnes reports that mood is depressed and bord ; and sleep reported to be variable some nights not able to sleep well feels tired a lot. Review of Systems: Bones, Joints, and Muscles: joint pain, muscle pain and stiffness Gastrointestinal System: Nausea with headaches, abdominal pain Genitourinary System: negative Nervous System: weakness and headache Psychiatric History: depressed mood, sleep disturbance, decreased energy, concentration a nd anxiety Since prior visit, there have been no changes in past medical history, past surgical histor y, family history, or social history. Current outpatient prescriptions Medication Sig Dispense Refill aspirin chewable (BABY ASPIRIN) 81 mg Oral Tablet, Chewable 2 daily buPROPion XL (WELLBUTRIN XL) 300 mg Oral Tablet Sustained Release 24 hr take 1 tablet ( 300 mg) by oral route once daily aqtmnpuhcj-vrldirkxrysik-pmriqgrg (FIORICET) 50-325-40 mg Oral Tablet take 2 [...] 400 unit Oral Capsule 2 cap daily Side effects: denies Past Medical History Diagnosis [...] cholecystectomy Hx section Hx hysterectomy Gastric bypass CYudy Robledoenejeannie wt 278 01/18 Paniculectomy Hx lumbar fusion 05/2008 L1-Z4tvepiz with bone spur removals Family History Problem Relation Cancer Mother Heart Father Additional Family History Father Migraine Additional Family History Mother Migraine Physical Examination: BP 110/68 | Pulse 67 | Temp (Src) 37.1 C (98.7 F) (Oral) | Resp 16 | Ht 1.753 m (5' 9") | Wt 83.462 kg (184 lb) | SpO2 99% Body mass index is 27.17 kg/(m^2). General appearance: Obese, Dysphoric, alert in no acute distress, well groomed, pleasant Lumbar spine: wearing a brace limite ROM prefers that I dont' examin No allodynia over axial scar LE: no edema, color changes myofacial tenderness ileotibial bands and gluteals DTR 2/4+ grossly in UE absent knees and ankles No neurosensory deficits LE Knees large, now acute swelling or redness fluctulance generalized tenderness Impression: 724.2AF LBP (Low Back Pain) V45.4J Spinal Fusion Lumbar spine V43.65D Hx Arthroplasty of both Knees 729.1 Fibromyalgia syndrome 729.1 789.09 Abdominal Pain, dumping syndrome Hx of gastric bypass 564.2B Dumping Syndrome 564.4A Diarrhea Following Gastrointestinal Surgery V58.69 Encounter for Long-Term (Current) Use of Opioids 346.90D Migraine Headache 296.32 Major Depressive Disorder, Recurrent Episode, Moderate 244.9AQ Hypothyroidism 250.80 Metabolic syndrome X 250.80 309.24 Adjustment Disorder with Anxiety 275.0C Iron Deficiency Belinda's increased pain is due to a flare in her fibromyalgia as she has stopped the self c are skills in the with her exercise program, with increased depression and boredom, and week s of bedrest deactivatedas a result of her resent neurosurgerythis as contributed to an incr ease in her central sensatization. I am glad that her right leg pain has resolved and enco uraged Belinda that with time and participation in her surgeons rehabiliation orders that her lower back should improve also. Belinda continues to see our pain psychologist when ever sh e comes to [place] for medical care. She has a strong tendency to catastrophize her pain a nd get weighted down by it this is what she is experiencing today, particularly with her calderon gloria [ one problem resolves she focuses on another]. She is at her best when her fibromya lgia is managed well and she use the skills and tools to get back to a level of self managem ent, however I warned her so long as there is trauma introduced to her body [ surgical, emot ional or physical] her nervous system will be sensatized. She is already talking about getti ng her hips "looked at". She is opioid seeking today, reasonable after her surgery to facili chavez her physical rehab however should be decreased when rehad is completed. Recommendations/Plan: A 30 minute visit with greater than 50% spent in reviewing the progress notes and counselli ng/education of the patient. 1. PARQ for a trial of pregablin [Lyrica] for central sensatization since surgery and with fibromyalgia 2. Continue with Oxycontin 40 mg Q12hr 3. Continue with oxycodone 5 mg 2 tablets Q4-6 hr PRN pain NTE 6 per day. I recommend temporarily increasing the quantity to an additional 4 tablets per day on days working with physical rehab s/p lumbar fusion, this should improve tolerance and functional capacity. 4. To improve activation and reduce her fibromyalgia symptoms I told Belinda to return to he r pool exercise regimen first needs approval for this by her spine surgeon 5. Schedule follow up in 4 weeks or sooner to review trial with pregabalin. - The pateint was asked to call the clinic with any concerns or questions. DELFINA MOLINA [facility] Mail code CH 4P [facility] [address] [facility] [address] Ty Mendez - 12/2008 9:11 AM PSTCMA History: PMH/PSH/SH/FH review Patient had lumbar fusion in May 22. She also reports tooth abcess. She has script for an tibiotic tx waiting for her in [place]. 1. Has your pain changed from your last visit? increased 2. Do you have any new weakness or decrease in sensation? no 3. Do you have any difficulty with urination? Yes 4. How often do you have a bowel movement? once daily 5. Are you having difficulties with sexual function? Not applicable 6. Do your medications cause any side effects? no 7. Have you had physical therapy appointments since your last visit? None since april 8. Have you had psychology appointments since your last visit? yes 9. Have you had any diagnostic studies since your last appointment? No 10. Do you require any medication refills today? Discuss medication prescribing. documented in this encounte r Plan of Treatment Not on filedocumented as of this encounter Visit Diagnoses + + | Diagnosis | + + | LBP (low back pain) - Primary Lumbago | + + | Spinal Fusion Lumbar spine Arthrodesis status | + + | Hx Arthroplasty of both Knees Knee joint replacement by other means | + + | Fibromyalgia syndrome 729.1 Mylagia and myositis, unspecified | + + | Abdominal Pain, dumping syndrome Hx of gastric bypass Abdominal pain, other | | specified site | + + | Dumping syndrome Postgastric surgery syndromes | + + | Diarrhea following gastrointestinal surgery Other postoperative functional disorders | + + | Encounter for Long-Term (Current) Use of Opioids Encounter for long-term (current) | | use of other medications | + + | Migraine headache Migraine, unspecified, without mention of intractable migraine | | without mention of status migrainosus | + + | Major depressive disorder, recurrent episode, moderate (HCC) Major depressive | | disorder, recurrent episode, moderate | + + | Hypothyroidism Unspecified hypothyroidism | + + | Metabolic syndrome X 250.80 Type II or unspecified type diabetes mellitus with other | | specified manifestations, not stated as uncontrolled | + + | Adjustment disorder with anxiety | + + | Iron deficiency Other disorders of iron metabolism | + + documented in this encounter
--- OUTSIDE RECORDS SUMMARY | ~2020-01-25 | XMS | Encounter Summary ---
Demographics + + + | Address | [address] | | | [place] [address] | + + + | Home Phone [...] Team Providers + +------+ + | Care Mechanical Drawing Teacher Name | Role | Phone | + +------+ + | Sulaiman Carrera MD | PCP | | + +------+ + Encounter Details +--------+ + + + + | Date | Type | Department | Care Team | Description | +--------+ + + + + | 12/06/ | Hospital | Registration [id number] | Chris Padgett, | | | 2005 | Activity | [address] | [address] | | | | | [place] Mailcode: [id number] | [address] | | | | | [place], [place] | [place], [place] | | | | | [address] | [address] | | | | | [phone] | [phone] | | | | | | | [...] | BASIC METABOLIC SET | Routin | 12/07/2004 | | Results for this | | (NA, K, CL, TCO2, | e | 6:42 AM | | procedure are in the | | BUN, CR, GLU, CA) | | PDT | | results section. | + +--------+ + + + | CBC ONLY | Routin | 12/07/2004 | | Results for this | | | e | 6:42 AM | | procedure are in the | | | | PDT | | results section. | + +--------+ + + + | PHOSPHORUS, PLASMA | Routin | 12/07/2004 | | Results for this | | | e | 6:42 AM | | procedure are in the | | | | PDT | | results section. | + +--------+ + + + | MAGNESIUM, PLASMA | Routin | 12/07/2004 | | Results for this | | | e | 6:42 AM | | procedure are in the | | | | PDT | | results section. | + +--------+ + + + documented in this encounter Results CBC ONLY WITH PLATELET (12/07/2004 6:42 AM PDT) + +-------+ + + + | Component | Value | Ref Range | Performed | Pathologist | | | | | At | Signature | + +-------+ + + + | WHITE CELL | 9.8 | 4.4 - 11.0 K/cu | [facility] | | | COUNT | | mm | DEPARTMENT | | | | | | OF | | | | | | PATHOLOGY | | + +-------+ + + + | RED CELL | 4.03 | 4.00 - 5.20 | [facility] | | | COUNT | | M/cu mm | DEPARTMENT | | | | | | OF | | | | | | PATHOLOGY | | + +-------+ + + + | HEMOGLOBIN | 12.9 | 12.0 - 16.0 | [facility] | | | | | g/dL | DEPARTMENT | | | | | | OF | | | | | | PATHOLOGY | | + +-------+ + + + | HEMATOCRIT | 37.6 | 36.0 - 46.0 % | [facility] | | | | | | DEPARTMENT | | | | | | OF | | | | | | PATHOLOGY | | + +-------+ + + + | MCV | 93.3 | 80.0 - 96.0 fL | [facility] | | | | | | DEPARTMENT | | | | | | OF | | | | | | PATHOLOGY | | + +-------+ + + + | MCHC | 34.4 | 33.4 - 35.5 | [facility] | | | | | g/dL | DEPARTMENT | | | | | | OF | | | | | | PATHOLOGY | | + +-------+ + + + | RDW | 12.6 | 11.5 - 15.0 % | [facility] | | | | | | DEPARTMENT | | | | | | OF | | | | | | PATHOLOGY | | + +-------+ + + + | PLATELET | 196 | 150 - 400 K/cu | [facility] | | | COUNT | | mm | DEPARTMENT | | | | | | OF | | | | | | PATHOLOGY | | + +-------+ + + + + + | Specimen | + + | | + + + + + | Narrative | Performed At | + + + | New reference ranges for RBC, HGB, and HCT in effect 11/29/04. | [facility] | | | DEPARTMENT OF | | | PATHOLOGY | + + + + + + + + | Performing | Address | City/State/Zipcode | Phone Number | | Organization | | | | + + + + + | [facility] | [address] | [place] [address] | | | PATHOLOGY | [address] | | | + + + + + | [facility] | [address] | [place] [address] | | | PATHOLOGY | [address] | | | + + + + + BASIC METABOLIC SET (12/07/2004 6:42 AM PDT) + +--------+ + + + | Component | Value | Ref Range | Performed | Pathologist | | | | | At | Signature | + +--------+ + + + | GLUCOSE, | 97 | 65 - 110 mg/dL | [facility] | | | PLASMA | | | DEPARTMENT | | | (LAB) | | | OF | | | | | | PATHOLOGY | | + +--------+ + + + | BUN, PLASMA | 6 | 6 - 20 mg/dL | [facility] | | | (LAB) | | | DEPARTMENT | | | | | | OF | | | | | | PATHOLOGY | | + +--------+ + + + | CREATININE | 0.7 | 0.6 - 1.1 mg/dL | [facility] | | | PLASMA | | | DEPARTMENT | | | (LAB) | | | OF | | | | | | PATHOLOGY | | + +--------+ + + + | SODIUM, | 136 | 136 - 145 | [facility] | | | PLASMA | | mmol/L | DEPARTMENT | | | (LAB) | | | OF | | | | | | PATHOLOGY | | + +--------+ + + + | POTASSIUM, | 3.5 | 3.5 - 5.1 | [facility] | | | PLASMA | | mmol/L | DEPARTMENT | | | (LAB) | | | OF | | | | | | PATHOLOGY | | + +--------+ + + + | CHLORIDE, | 100 | 98 - 107 mmol/L | [facility] | | | PLASMA | | | DEPARTMENT | | | (LAB) | | | OF | | | | | | PATHOLOGY | | + +--------+ + + + | TOTAL CO2, | 31 (H) | 23 - 29 mmol/L | [facility] | | | PLASMA | | | DEPARTMENT | | | (LAB) | | | OF | | | | | | PATHOLOGY | | + +--------+ + + + | CALCIUM, | 8.7 | 8.5 - 10.5 | [facility] | [...] | + + + + + | [facility] DEPARTMENT OF | [address] | [place] [address] | | | PATHOLOGY | [address] | | | + + + + + | [facility] DEPARTMENT OF | [address] | [place] [address] | | | PATHOLOGY | [address] | | | + + + + + PHOSPHORUS, PLASMA (12/07/2004 6:42 AM PDT) + +-------+ + + + | Component | Value | Ref Range | Performed | Pathologist | | | | | At | Signature | + +-------+ + + + | PHOSPHORUS, | 4.3 | 2.4 - 4.7 mg/dL | [facility] [...] | + + + + + | [facility] DEPARTMENT OF | [address] [facility] | [place] [address] | | | PATHOLOGY | [address] | | | + + + + + | [facility] DEPARTMENT OF | [address] [facility] | [place] [address] | | | PATHOLOGY | [address] | | | + + + + + MAGNESIUM, PLASMA (12/07/2004 6:42 AM PDT) + +-------+ + + + | Component | Value | Ref Range | Performed | Pathologist | | | | | At | Signature | + +-------+ + + + | MAGNESIUM,P | 1.8 | 1.8 - 2.5 mg/dL | [facility] [...] + + | [facility] | [address] [place] [address] | [place] [address] | | | PATHOLOGY | [address] | | | + + + + + | [facility] DEPARTMENT OF | [facility] [facility] | [place] [address] | | | PATHOLOGY | [address] | | | + + + + + documented in this encounter Visit Diagnoses Not on filedocumented in this encounter"
--- OUTSIDE RECORDS SUMMARY | ~2020-01-25 | XMS | Encounter Summary ---
Demographics + + + | Address | [address] | | | [place] [address] | + + + | Home Phone [...] Providers + +------+ + | Care Client Renewal Specialist Name | Role | Phone | [...] Description | +--------+--------+ + + + | 09/02/ | Refill | Kraig Turner | Beto Meeks MD | Refill Request | | 2011 | | [facility] | [address] | | | | | [facility] | [place], [place] | | | | | [address] | [address] | | | | | [address] | [phone] | | | | | Physician's | | | | | | Pavilion, 1st floor | | | | | | [place], [place] | | | | | | [address] | | | | | | [phone] | | | +--------+--------+ + + + [...]
--- OUTSIDE RECORDS SUMMARY | ~2020-01-25 | XMS | Encounter Summary ---
Demographics + + + | Address | [address] | | | [place] [address] | + + + | Home Phone [...] Providers + +------+ + | Care Pulp Maker Name | Role | Phone | + +------+ + PCP | Unavailable | + +------+ + Encounter Details +--------+ + + + + | Date | Type | Department | Care Team | Description | +--------+ + + + + | 12/06/ | Orders Only | | Record, Operation | | | 2005 | | | [...] + + | OPERATION RECORD | | 12/06/2004 | | Results for this | | | | | | procedure are in the | | | | | | results section. | + +--------+ + + + documented in this encounter Results OPERATION RECORD (12/06/2004) + + | Transcriptions | + + | Interface, Director Of Cardiology Service Line In - 06/05/2005 5:20 AM PST | | [id number] | | [id number] GEOVANNI Barnes | | | | Date: 12/06/2004 | | | | Attending Surgeon: Chris Padgett M.D. | | | | Business Economist(s): | | | | Preoperative Diagnosis(es): | | 1. Unwanted panniculectomy. | | 2. Unwanted inner thigh skin folds. | | | | | | Postoperative Diagnosis(es): | | | | Procedures Performed: | | Panniculectomy with bilateral inner thigh skin fold removal. | | | | Anesthesia: | | General endotracheal. | | | | Complications: | | | | Estimated Blood Loss: | | Less than 50 mL. | | | | Specimens: | | | | Indications: | | This is a 45-year-old female who had a gastric bypass procedure performed. | | She has since lost over 200 pounds and now is here for removal of her | | pannus. | | | | Procedure: | | The patient was correctly identified and taken to the operating room. | | General anesthetic was induced. The patient was intubated without | | complication. The pannus was outlined previous to the incision. Using | | Bovie cautery, we dissected through the skin and down to the external | | fascia. The pannus was dissected off the fascial layer. Hemostasis was | | obtained throughout the case using 2-0 silk ties as well as 2-0 Vicryl | | suture ligatures. After removal of the pannus, closure was obtained using | | multiple interrupted 2-0 to 3-0 Vicryl sutures to approximate the skin | | folds. Reshma were used to close the overlying skin. Prior to this, two | | #10 JPs were placed overlying the fascial layer. | | | | Attention was then made towards the inner thigh folds. An incision | | somewhat like an arrow was made, and a triangular incision was made | | overlying the skin folds. A similar procedure was performed as with the | | pannus in terms of removing the unwanted skin and fat. The skin was then | | approximated using 2-0 Vicryl. And the skin was closed with reshma. The | | same procedure was performed on the right as well as on the left. No | | drains were placed within the inner thighs. | | | | Dr. Chris Padgett was present for the entire procedure. All counts were | | also correct. The patient was the then taken to Recovery in stable | | condition. | | | | | | | | | | Sree Carrillo M.D. | | | | | | | | Chris Padgett M.D. | | | | BW / HS | | [id number] / [id number] / [id number] / | | | | | | | | | | | | Electronically signed by Chris Padgett 12-31-2004 03:02:45 PM | + + documented in this encounter Visit Diagnoses Not on filedocumented in this encounter"
--- OUTSIDE RECORDS SUMMARY | ~2020-01-25 | XMS | Encounter Summary ---
Demographics + + + | Address | [address] | | | [place] [address] | + + + | Home Phone | | + + + | Preferred Language | Unknown | + + + | Marital Status | Single | + + + | Scientology Affiliation | ADV | + + + | Race | White | + + + | Ethnic Group | Not or | + + + Author + + + | Author | [facility] | + + + | Organization | [facility] | + + + | Address [...] Team Providers + +------+ + | Care Board Filler Name | Role | Phone | [...] as of this encounter Progress Notes Interface, Umbrella Tipper In - 01/12/2005 9:13 AM PDT [id number] [facility] Date: 04/10/2004 Clinic: Rheumatology [...] with sitting and it is worse in floor and wall applier liquid and early evening. Her IGF-1 was low [...] 3 months. Caitlin Rivera M.S., F.N.P. / [id number] / [id number] / [id number] / cc: Pedrito Gutierrez M.D. [address] [facility] [place] [address] documented i n this encounter Plan of Treatment Not on filedocumented as of this encounter Visit Diagnoses Not on filedocumented in this encounter"
--- OUTSIDE RECORDS SUMMARY | ~2020-01-25 | XMS | Encounter Summary ---
Demographics + + + | Address | [address] | | | [place] [address] | + + + | Home Phone [...] Providers + +------+ + | Care Auto Body Customizer Name | Role | Phone | + [...] + + | 04/09/ | Telephone | [facility] Division of | Carlos Arreola, | Erroneous Encounter | | 2005 | | Gastroenterology/Hep | [address] | - Disregard | | | | atology [address] | (duplicate call; see | | | | [address] | [place] [address] | other encounter ) | | | | Mailcode: [id number] | [phone] | | | | | [facility] | | | | | | [address] | | | | | | [place], [place] | | | | | | [address] | | | | | | [phone] | | | +--------+ + + + [...]
--- OUTSIDE RECORDS SUMMARY | ~2020-01-25 | XMS | Encounter Summary ---
Demographics + + + | Address | [address] | | | [place] [address] | + + + | Home Phone [...] Team Providers + +------+ + | Care Plant Controller Name | Role | Phone | + [...] | | | Metabolism | bypass | [address] | [address] | | | | | Hypovitamino | [address] | [address] | | | | | sis [address] | [address] | [place], [place] | | | | | nutritional | [place] | [address] | | | | | deficiency | [address] | Phone: | | | | | Other | Phone: | [phone] | | | | | protein-jose manuel | [phone] | Fax: | | | | | nick | Fax: | [phone] | | | | | malnutrition | [phone] | | | | | | Weight | | | | | | | gain | | | | | | | Procedures | | | | | | | CONSULT TO | | | | | | | ENDO | | | | | | | [address] | | | | | | | [address] | | | +--------+--------+ + + + + Encounter Details +--------+---------+ + + + | Date | Type | Department | Care Team | Description | +--------+---------+ + + + | 05/31/ | Office | [facility] | Beto Meeks MD | Hypothyroidism | | 2012 | Visit | Diabetes Health | [address] | (Primary Dx); | | | | [facility] | [place], [place] | Metabolic syndrome X | | | | [address] | [address] | 250.80; Essential | | | | [address] | [phone] | hypertension 401.9; | | | | [facility] | | IGT (impaired | | | | Physician's | | glucose tolerance) | | | | Pavilion [place], | | | | | | [place] [address] | | | | | | [phone] | | | +--------+---------+ + + + [...] + + + | Blood Pressure | 124/72 | 05/31/2013 3:55 PM | | | | | PST | | + + + + + | Pulse | 85 | 05/31/2013 3:55 PM | | | | | PST | | + + + + + | Temperature | - | - | | + + + + + | Respiratory Rate | - | - | | + + + + + | Oxygen Saturation | 96% | 05/31/2013 3:55 PM | | | | | PST | | + + + + + | Inhaled Oxygen | - | - | | | Concentration | | | | + + + + + | Weight | 105.4 kg (232 lb 4.8 | 05/31/2013 3:55 PM | | | | oz) | PST | | + + + + + | Height | 172.7 cm (5' 8") | 05/31/2013 3:55 PM | | | | | PST | | + + + + + | Body Mass Index | 35.32 | 05/31/2013 3:55 PM | | | | | PST | | + + + + + documented in this encounter Progress Notes Beto Meeks MD - 05/31/2013 3:59 PM PSTFormatting of this note might be different from lesli gomez. Endocrinology Clinic Subjective Belinda Meehan is a 53 y.o. woman who is here for a followup visit regarding metabolic sy ndrome, prior gastric bypass surgery in 2003, hypothyroidism, IGT, and other issues noted be low. She has been having more pain since the Winter weather started. Her new PCP has also been trying to cut back on her pain medications, which has aggravated her pain. Her promet hazine dose was reduced from q 6 hours prn to only BID, which has been associated with incre ased nausea and emesis. She will be seen next month in the pain center her at [facility], so she is hoping to find an acceptable level of pain relief with their help. She is having severe daily pain. She has been using the CPAP again and she has been taking ropinirole to help he r sleep, but she is not sure if the ropinirole is helping. Her pain is unchanged after star ting the CPAP. She has been waking up with migraines with pain extending into her neck almo st daily. She has been using a TENS unit for her LS spine pain, but she has not tried it fo r her neck. She has not been sleeping well because of the pain. She has been taking phente rmine and tolerating it well for the last 2 months. Unfortunately, her weight has increased 8 lbs due to fluid retention. She has ongoing problems with Meniere's disease, which has i ncluded dizziness and falling. She has enjoyed seeing her new 2 1/2 month old granddaughter . Her PCP told her not to take the phentermine because she had an episode of tacchyarhythmia and hypotension with pulse > 200 after her former physician stopped her inderal suddenly. She has had no recurrences of the arrhythmia since that time, during which she has been taki ng metoprolol. In retrospect, it appears that the phentermine did not contribute to the tach yarrhythmia. She has been taking liquid calcium , 1000 mg calcium + 1000 units vit D 3-time s daily for the last year. Patient Active Problem List Diagnosis Metabolic syndrome [...] Hives Mainly in the legs Clindamycin Codeine Wgizftv-Mdvltytfkp-Kbn-Caff Balance problems Fioricet W/Codeine (Oqskducywd-Wpklbrxgmn-Cyu-Cod) Keflex (Cephalexin) Morphine IM ( only in [facility]) made gut pain worse 08/27/06: Trial [...] Injection Syringe 1 inj q month DULoxetine 30 mg Oral capsule,delayed release(DR/EC) Take 30 mg by mouth once daily. furosemide 80 [...] Oral tablet Take 50 mg by mouth two times daily. Multivitamin Oral Tablet 1 tab by mouth twice daily omeprazole 20 mg Oral capsule,delayed release(DR/EC) Take 20 mg by mouth two times chad y. oxyCODONE CR 20 mg Oral tablet extended release 12 hr Take 20 mg by mouth every twelve hours. oxyCODONE, immediate release, 5 mg Oral tablet Take 5 mg by mouth every four hours as n eeded. phentermine 37.5 mg oral tablet Take 18.75 mg by mouth once daily mid-morning. POTASSIUM CHLORIDE SR 20 MEQ TAB, PARTICLES/CRYSTALS take 3 tablet (20meq) by oral rout e twice daily with food promethazine 25 mg Oral Tablet 1 tab by mouth as needed rOPINIRole 0.5 mg Oral tablet Take 0.5 mg by mouth once daily in the evening. sucralfate (CARAFATE) 1 gram Oral Tablet Take 1 Tab by mouth before meals. tiZANidine 4 mg Oral tablet Take 2-4 mg by mouth three times daily as needed. Max: 36 m g / day. torsemide 5 mg Oral tablet Take 5 mg by mouth once daily. travoprost (TRAVATAN Z) 0.004 % Ophthalmic Drops 1 drop once daily in the evening. Physical Exam BP 124/72 | Pulse 85 | Ht 1.727 m (5' 8") | Wt 105.371 kg (232 lb 4.8 oz) | SpO2 96% | BMI 35.33 kg/(m^2) Body mass index is 35.33 kg/(m^2). Alert, NAD, mood WNL Skin unremarkable. Thinning of scalp hair Thyroid 20-25 g. No palpable nodules Cardiac-RRR, no murmur/S3/S4/rubs. No JVD. Pulses 2+. No bruits Abdomen: No hepatosplenomegaly, masses, or tenderness Extremities: trace to 1+ pretibial edema, R > L. Wt Readings from Last 4 Encounters: 05/31/13 105.371 kg (232 lb 4.8 oz) 04/05/13 101.606 kg (224 lb) 03/22/13 101.606 kg (224 lb) 12/21/12 100.653 kg (221 lb 14.4 oz) Labs Component Latest Ref Rng 12/21/2012 [...] U/L 41 ANION GAP 8 VITAMIN B12, [id number] pg/ml >2000 (H) HEMOGLOBIN A1C <=5.6 % [...] SERUM 15.0-85.0 pg/ml 222.9 (H) VITAMIN B12, [id number] pg/ml > 2000 HEMOGLOBIN A1C <=5.6 % 5.7 Labs: Will do F/U lab testing externally Assessment Belinda Meehan is a 53 y.o. female who has medical problems noted above. 1. Metabolic syndrome: She has qained 8 lbs since since her last visit despite taking phen termine, but much of the weight gain appears to be related to fluid retention. .She can con tinue taking phentermine, which she is tolerating well without adverse side-effects. She is a candidate for treatment with topiramate for her headaches which may also synergistically help facilitate weight loss in combination with phentermine. Side effects from the topirama te may be a significant limiting factor for her. 2. BP is good 3. Secondary hyperparathyroidism: She can increase her calcium intake. Her vitamin D leve l is low normal 4. Chronic pain: Possible fibromyalgia, but she also has cervical and lumbar radiculopathi es. This is causing sleep impairment. She needs pain relief and is hoping to get help from the pain clinic. 5. Tachyarrhythmia: Induced by sudden termination of treatment with Inderal. No current pr oblems while taking the beta-colby.. Plan 1. Continue phentermine 18.75 mg q AM. 2. Consider adding topiramate for control of HAs as well as facilitating weight loss 3. Do sleep study 4. Do lab testing externally 5. Healthy Lifestyle 6. RTC 2-3 Months document ed in this encounter Plan of Treatment + +------+--------+ + + | Name | Type | Priori | Associated Diagnoses | Order Schedule | | | | ty | | | + +------+--------+ + + | VITAMIN D, | Lab | Routin | Hypothyroidism | Ordered: 05/31/2013 | | 25-HYDROXY, SERUM | | e | Metabolic syndrome X | | | | | | 250.80 Essential | | | | | | hypertension 401.9 | | | | | | IGT (impaired | | | | | | glucose tolerance) | | + +------+--------+ + + | CBC ONLY | Lab | Routin | Hypothyroidism | Ordered: 05/31/2013 | | | | e | Metabolic syndrome X | | | | | | 250.80 Essential | | | | | | hypertension 401.9 | | | | | | IGT (impaired | | | | | | glucose tolerance) | | + +------+--------+ + + | HEMOGLOBIN A1C, | Lab | Routin | Hypothyroidism | Ordered: 05/31/2013 | | BLOOD | | e | Metabolic syndrome X | | | | | | 250.80 Essential | | | | | | hypertension 401.9 | | | | | | IGT (impaired | | | | | | glucose tolerance) | | + +------+--------+ + + | FREE T4 | Lab | Routin | Hypothyroidism | Ordered: 05/31/2013 | | | | e | Metabolic syndrome X | | | | | | 250.80 Essential | | | | | | hypertension 401.9 | | | | | | IGT (impaired | | | | | | glucose tolerance) | | + +------+--------+ + + | TSH | Lab | Routin | Hypothyroidism | Ordered: 05/31/2013 | | | | e | Metabolic syndrome X | | | | | | 250.80 Essential | | | | | | hypertension 401.9 | | | | | | IGT (impaired | | | | | | glucose tolerance) | | + +------+--------+ + + documented as of this encounter Visit Diagnoses + + | Diagnosis | + + | Hypothyroidism - Primary Unspecified hypothyroidism | + + | Metabolic syndrome X 250.80 Type II or unspecified type diabetes mellitus with other | | specified manifestations, not stated as uncontrolled | + + | Essential hypertension 401.9 Unspecified essential hypertension | + + | IGT (impaired glucose tolerance) Impaired glucose tolerance test | + + documented in this encounter
--- OUTSIDE RECORDS SUMMARY | ~2020-01-25 | XMS | Encounter Summary ---
Demographics + + + | Address | [address] | | | [place] [address] | + + + | Home Phone | | + + + | Preferred Language | Unknown | + + + | Marital Status | | + + + | Scientologist Affiliation | [id number] | + + + [...] Providers + +------+ + | Care Water Purification Chemist Name | Role | Phone | + +------+ + | Petrona Thapa | PCP | | | MD | | | + +------+ + Reason for Visit + +--------+ + | Reason | Onset | Comments | | | Date | | + +--------+ + | Results, Imaging | 07/16/ | | | | 2017 | | + +--------+ + Encounter Details +--------+ + + + + | Date | Type | Department | Care Team | Description | +--------+ + + + + | 07/16/ | Telephone | [facility] | Alanis, | Results, Imaging | | 2017 | | MEDICINE [address] | MD Petrona | | | | | [place], | [address] [facility] | | | | | [place] [address] | [place] [address] | | | | | [phone] | [phone] | | | | | | | [...] Telephone Encounter - Maggie Montoya LPN - 07/16/2017 5:16 PM PSTPatient notified of negat gerda DVT results elephon e Encounter - Petrona Thapa MD - 07/16/2017 4:41 PM PSTPlease let pt know. E lectronically signed by Petrona Thapa MD at 07/16/2017 4:41 PM PSTTelephone E ncounter - Maggie Montoya LPN - 07/16/2017 3:40 PM PSTReceived call from [facility], reporting negative DVT. notifiedElectronically signed by Maggie Montoya LPN at 07/16 3:41 PM PSTdocumented in this encounter Plan of Treatment +--------+---------+ + + + | Date | Type | Specialty | Care Team | Description | +--------+---------+ + + + | 02/15/ | Office | Internal Medicine | Alanis, | | | 2019 | Visit | | MD Petrnoa | | | | | | [address] [place] | | | | | | [place] [address] | | | | | | [phone] | | | | | | | | +--------+---------+ + + + documented as of this encounter Visit Diagnoses Not on filedocumented in this encounter"
--- OUTSIDE RECORDS SUMMARY | ~2020-01-25 | XMS | Encounter Summary ---
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 Diagnosis: [place] I: 1. (296.32) Major depressive disorder, recurrent, moderate. 2. (309.24) Adjustment disorder with anxiety. 3. 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 [place] II: Deferred [place] III: abdominal pain, migraine headache, low back pain. [place] IV: low finances [place] V: GAF 55-60 Plan: Return with next medical follow-up appointment. Check mood, knee surgery, pacing, relaxati on, activity, distraction. Continue cognitive/behavioral therapy. Discuss need for further sessions. Total time spent with patient was approximately 45 minutes. LUKASZ CHARLES PHD [facility] [address] [facility], [address]th [place] [address] documented in this encount er Plan of Treatment + + +--------+ + + | Name | Type | Priori | Associated Diagnoses | Order Schedule | | | | ty | | | + + +--------+ + + | [place] [facility], | Procedures | Routin | Major Depressive | Ordered: 03/31/2007 | | OFFICE (45-50) | | e | Disorder, Recurrent | | | | | | Episode, Moderate | | | | | | ([facility]) Spondylosis | | | | | | [...]
--- OUTSIDE RECORDS SUMMARY | ~2020-01-25 | XMS | Encounter Summary ---
Demographics + + + | Address | [address] | | | [place] [address] | + + + | Home Phone [...] Providers + +------+ + | Care Pipe Stem Aligner Name | Role | Phone | + [...] [address] | | | | | [facility] | [place], [place] | | | | | and Healing, | [address] | | | | | [facility], [facility] | [phone] | | | | | Floor [place], [place] | | | | | | [address] | | | | | | [phone] | | | +--------+ + + + [...]
--- OUTSIDE RECORDS SUMMARY | ~2020-01-25 | XMS | Encounter Summary ---
Demographics + + + | Address | [address] | | | [place] [address] | + + + | Home Phone [...] Team Providers + +------+ + | Care Position Classifier Name | Role | Phone | + [...] | | | [facility] | [place], [place] | | | | | [address] | [address] | | | | | [address] | [phone] | | | | | [facility] | | | | | | Physician's | | | | | | Pavilion [place], | | | | | | [place] [address] | | | | | | [phone] | | | +--------+ + + + [...]
--- OUTSIDE RECORDS SUMMARY | ~2020-01-25 | XMS | Encounter Summary ---
Demographics + + + | Address | [address] | | | [place] [address] | + + + | Home Phone | | + + + | Preferred Language | Unknown | + + + | Marital Status | Single | + + + | Voodoo Affiliation | ADV | + + + [...] Team Providers + +------+ + | Care Crop Farm Helper Name | Role | Phone | [...] | Transcriptions | + + | Interface, Sail Repairer In - 06/05/2005 5:20 AM PST Date: | | 11/22/2003Attending Surgeon: Chris Padgett M.D.Hand Potter(s): | | Ramon Valentine M.D.Preoperative Diagnosis:Morbid obesity.Postoperative [...] our proximal transected portion down and did iuqgy-ht-sqfm stapled jejunojejunostomy | | using a single [...] to this antecolic and antegastric andperformed a qyqh-fy-sdma gastrojejunostomy | | after placing a posteriorinterrupted [...] Valentine | | Syed Padgett M.D.MOOKIE / [id number] / [id number] / [id number] / [id number]: 11/22/2003T: | | 11/22/2003 | |cm to [...] transected portion down and did a | |hazb-yd-otqq stapled jejunojejunostomy using a single firing blue [...] antecolic and antegastric and | |performed a iblm-sa-hvvv gastrojejunostomy after placing a posterior | |interrupted [...] | | | |MOOKIE / SHARIF | |[id number] / [id number] / [id number] / [id number] | | | | | + + documented in this encounter Visit Diagnoses Not on filedocumented in this encounter"
--- OUTSIDE RECORDS SUMMARY | ~2020-01-25 | XMS | Encounter Summary ---
Demographics + + + | Address | [address] | | | [place] [address] | + + + | Home Phone [...] Team Providers + +------+ + | Care Blow Mold Machine Operator Name | Role | Phone [...] 2006 | Visit | Rheumatology [address] | Fibromyalgia; | | | | [address] | | Fibromyalgia | | | | Mailcode: [id number] | | | | | | Outpatient Clinic | | | | | | [facility], | | | | | | [place] [address] | | | | | | [phone] | | | +--------+---------+ + + + [...] 4-5/5 for all major deltoids, biceps, triceps. Model Making Supervisor slightly weak. Tone is normal. There is [...] cervical spine MRI to be done at [facility]. A few of these patients have [...] + + +--------+ + + | [place] INJECT TRIGGER | Procedures | Routin | [...]
--- OUTSIDE RECORDS SUMMARY | ~2020-01-25 | XMS | Encounter Summary ---
Demographics + + + | Address | [address] | | | [place] [address] | + + + | Home Phone [...] Team Providers + +------+ + | Care Office Machine Inspector Name | Role | Phone | [...] 11/24/ | Office | Pain Center at [facility] | Lukasz Charles, | Major Depressive | | 2006 | Visit | [address] | PhD [address] | Disorder, Recurrent | | | | Center for Health | [place], [place] | Episode, Moderate | | | | and Healing, | [address] | ([facility]); Spondylosis | | | | Building | [phone] | with Myelopathy, | | | | Floor [facility] [place] | | Lumbar Region; Left | | | | [address] | | Knee Pain; | | | | [phone] | | Adjustment Disorder | | | [...] She has few specific plans. We discussed th e benefits of plans and goals. We discussed how winter is more difficult for her than summe r. We decided to schedule follow-up in 3 months to plan for the winter. Ms. Meehan has ongoing depression and frustration. She is not suicidal. She has been sad since her niece left. She has using some good self-care skills. She needs to make some pl ans for more activity. Diagnosis: [place] I: 1. (296.32) Major depressive disorder, recurrent, moderate. 2. (309.24) Adjustment disorder with anxiety. 3. 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 [place] II: Deferred [place] III: abdominal pain, migraine headache, low back pain. [place] IV: low finances [place] V: GAF 55-60 Plan: Return in 2 weeks. Check mood, pacing, relaxation, activity, distraction. Continue cognit gerda/behavioral therapy. Set goals for summer activity. Total time spent with patient was approximately 45 minutes. LUKASZ CHARLES PHD [facility] [address] [facility], [address] [place] [address] documented in this encount er Plan of Treatment + + +--------+ + + | Name | Type | Priori | Associated Diagnoses | Order Schedule | | | | ty | | | + + +--------+ + + | [place] [facility], | Procedures | Routin | Major Depressive | Ordered: 11/24/2006 | | OFFICE (45-50) | | e [...]
--- OUTSIDE RECORDS SUMMARY | ~2020-01-25 | XMS | Encounter Summary ---
Demographics + + + | Address | [address] | | | [place] [address] | + + + | Home Phone [...] Team Providers + +------+ + | Care Centrifugal Separator Name | Role | Phone | + [...] [id number] | | | | | | [place], [place] | | | | | | [address] | | | | | | [phone] | | | +--------+--------+ + + + [...]
--- OUTSIDE RECORDS SUMMARY | ~2020-01-25 | XMS | Encounter Summary ---
Demographics + + + | Address | [address] | | | [place] [address] | + + + | Home Phone [...] Providers + +------+ + | Care Power Electronics Engineer Name | Role | Phone | + +------+ + | Petrona Thapa | PCP | | | MD | | | + +------+ + Reason for Visit +---------+--------+ + | Reason | Onset | Comments | | | Date | | +---------+--------+ + | Illness | 06/25/ | | | | 2017 | | +---------+--------+ + Encounter Details +--------+ + + + + | Date | Type | Department | Care Team | Description | +--------+ + + + + | 06/25/ | Telephone | [facility] | Alanis, | Illness | | 2017 | | MEDICINE [address] | MD Petrona | | | | | [place], | [address] [facility] | | | | | [place] [address] | [place] [address] | | | | | [phone] | [phone] | | | | | | | [...] Telephone Encounter - Maggie Montoya LPN - 06/25/2017 9:41 AM PSTReceived call from slick jacobsen complaining of flu like symptoms, headache, bodyaches, chills, nausea/vomiting, diarrhea. Can not keep anything down. Temp unknown, patient does not have a thermometer to check. Shania peters lives out of town and advised to seek medical treatment at an urgent care or ER in [facility]. Patient understands and accepts. notified of advise. documented in this encounter Plan of [...] | | | | | [place] [address] | | | | | | [phone] | | | | | | | | +--------+---------+ + + + documented as of this encounter Visit Diagnoses Not on filedocumented in this encounter"
--- OUTSIDE RECORDS SUMMARY | ~2020-01-25 | XMS | Encounter Summary ---
Demographics + + + | Address | [address] | | | [place] [address] | + + + | Home Phone [...] Team Providers + +------+ + | Care Usability Engineer Name | Role | Phone | + +------+ + PCP | Unavailable | + +------+ + Encounter Details +--------+ + + + + | Date | Type | Department | Care Team | Description | +--------+ + + + + | 12/25/ | Office | [facility] | Clinic, [...] as of this encounter Progress Notes Interface, Tie Carrier In - 01/12/2005 10:09 AM PDT [id number] GEOVANNI [facility] Date: 12/25/2004 Clinic: GENERAL SURGERY CLINIC TELEPHONE CONSULTATION Subjective: Mrs. Meehan underwent a panniculectomy and was sent home on oxycodone pain medication. Medicaid restrictions limit the use of oxycodone to 30 pills per prescription. A form was completed listing authorization for additional pain medication related to extensive surgery, and this was approved. Assessment: The patient with acute pain, postop panniculectomy. Plan: 1. We will send an emergency supply fax to [facility] at fax #[phone], first 30 pills, oxycodone 5 mg to 10 mg p.o. q.4 h. p.r.n. pain. 2. We will send the pharmacy an additional prescription for 40 of the oxycodone for pain relief. The extension of this permission concludes on January 12, 2005. The patient was called and is aware of the current plan. She has tapered down on the medication and is pleased with the current plan. Melisa Thorne / SHARIF [id number] / [id number] / [id number] / [id number] Electronically signed by Kenisha Melton 01-01-2005 04:41:20 PM documented i n this encounter Plan of Treatment Not on filedocumented as of this encounter Visit Diagnoses Not on filedocumented in this encounter"
--- OUTSIDE RECORDS SUMMARY | ~2020-01-25 | XMS | Encounter Summary ---
Demographics + + + | Address | [address] | | | [place] [address] | + + + | Home Phone [...] Providers + +------+ + | Care Supervisor Mapping Name | Role | Phone | + [...] [id number] | | | | | | [place], [place] | | | | | | [address] | | | | | | [phone] | | | +--------+ + + + [...]
--- OUTSIDE RECORDS SUMMARY | ~2020-01-25 | XMS | Encounter Summary ---
Demographics + + + | Address | [address] | | | [place] [address] | + + + | Home Phone | | + + + | Preferred Language | Unknown | + + + | Marital Status | | + + + | Protestant Affiliation | 1001 | + + + | Race | Unknown | + + + | Ethnic Group | Unknown | + + + Author + + + | Author | [facility] | | | and [place] | + + + | Organization | [facility] | | | [...] Team Providers + +------+ + | Care Cooler Supervisor Name | Role | Phone | + +------+ + | Petrona Thapa | PCP | | | MD | | | + +------+ + Reason for Visit + +--------+ + | Reason | Onset | Comments | | | Date | | + +--------+ + | Appointment | 03/15/ | | | | 2017 | | + +--------+ + Encounter Details +--------+ + + + + | Date | Type | Department | Care Team | Description | +--------+ + + + + | 03/15/ | Telephone | [facility] | Alanis, | Appointment | | 2017 | | MEDICINE [address] | MD Petrona | | | | | [place], | [address] [facility] | | | | | [place] [address] | [place] [address] | | | | | [phone] | [phone] | | | | | | | [...] Telephone Encounter - Maggie Montoya LPN - 03/15/2018 2:36 PM PDTReturned call to patient, states currently in hospital but is hoping to be discharged in the next 2 days and was conc erned about her B12 injection. I instructed her that she may call and schedule her appt afte r her surgeon has released her to travel, possibly in the next 2 weeks. Patient understands and accepts elephone En mauro - Adriana Cantor - 03/15/2018 2:10 PM PDTPatient called and cancelled her upcom ing appointment for tomorrow as she is still in the hospital in [place]. Patient stated s he has been in the hospital for over a week now after her emergency bowel surgery. Patient stated she is at [facility], room #115, and would like the nurse to call her back. Elect ronically signed by Adriana Cantor at 03/15/2018 2:11 PM PDTdocumented in this encounter Plan of [...] | | | | | [place] [address] | | | | | | [phone] | | | | | | | | +--------+---------+ + + + documented as of this encounter Visit Diagnoses Not on filedocumented in this encounter"
--- OUTSIDE RECORDS SUMMARY | ~2020-01-25 | XMS | Encounter Summary ---
Demographics + + + | Address | [address] | | | [place] [address] | + + + | Home Phone [...] Providers + +------+ + | Care Car Whacker Name | Role | Phone | + [...] | +--------+ + + + + | 02/01/ | Telephone | Kraig Turner | Beto Meeks MD | Medication Question | | 2007 | | [facility] | [address] | | | | | [facility] | [place], [place] | | | | | [address] | [address] | | | | | [address] | [phone] | | | | | [facility] | | | | | | Physician's | | | | | | Pavilion [place], | | | | | | [place] [address] | | | | | | [phone] | | | +--------+ + + + [...]
--- OUTSIDE RECORDS SUMMARY | ~2020-01-25 | XMS | Encounter Summary ---
Demographics + + + | Address | [address] | | | [place] [address] | + + + | Home Phone [...] Team Providers + +------+ + | Care Management Engineer Name | Role | Phone [...] + + | 04/02/ | Telephone | [facility] | Alanis, | Other | | 2017 | | MEDICINE [address] | MD Petrona | | | | | [place], | [address] [facility] | | | | | [place] [address] | [place] [address] | | | | | [phone] | [phone] | | | | | | | [...] | | | | | [place] [address] | | | | | | [phone] | | | | | | | | +--------+---------+ + + + documented as of this encounter Visit Diagnoses Not on filedocumented in this encounter"
--- OUTSIDE RECORDS SUMMARY | ~2020-01-25 | XMS | Encounter Summary ---
Demographics + + + | Address | [address] | | | [place] [address] | + + + | Home Phone [...] Team Providers + +------+ + | Care Well Cleaner Name | Role | Phone | [...] | Visit | [facility] [address] | VICE PRESIDENT AND PORTFOLIO MANAGER | Disc Disease; | | | | [address] | | Fibromyalgia | | | | Physician's | | | | | | Pavilion, 4th Floor | | | | | | [place], [place] | | | | | | [address] | | | | | | [phone] | | | +--------+---------+ + + + [...] documented in this encounter Progress Notes Caitlin Rievra FNP - 07/25/2008 5:59 PM PSTFormatting of [...] the LBP is gone. Dr. Ricky smith [place] was her surgeon. She think s a [...] 300 mg) by oral route once daily jydmpzkgge-etaipwxetroto-yywvayhs (FIORICET) 50-325-40 mg Oral Tablet take 2 [...] | + + +--------+ + + | ID INJECT TRIGGER | Procedures | Routin | [...]
--- OUTSIDE RECORDS SUMMARY | ~2020-01-25 | XMS | Encounter Summary ---
Demographics + + + | Address | [address] | | | [place] [address] | + + + | Home Phone [...] + +------+ + | Care Sales Representative Supervisor Name | Role | Phone | + +------+ + | Maria Esther Cintron MD | PCP | | + +------+ + Reason for Visit + + + | Reason | Comments | + + + | Medication requested | sucralfate (CARAFATE) 1 gram Oral Tablet | + + + Encounter Details +--------+ + + + + | Date | Type | Department | Care Team | Description | +--------+ + + + + | 11/01/ | Telephone | [facility] | Chris Padgett, | Medication requested | | 2007 | | [place] [address] | [address] | (sucralfate | | | | Ave Mailcode: CH4S | [facility] | (CARAFATE) 1 gram | | | | [facility] | [place], [place] | Oral Tablet) | | | | and Healing, | [address] | | | | | [facility] | [phone] | | | | | [place], [place] | | | | | | [address] | | | | | | [phone] | | | +--------+ + + + [...]
--- OUTSIDE RECORDS SUMMARY | ~2020-01-25 | XMS | Encounter Summary ---
Demographics + + + | Address | [address] | | | [place] [address] | + + + | Home Phone [...] Providers + +------+ + | Care Heel Molder Name | Role | Phone | + +------+ + PCP | Unavailable | + +------+ + Encounter Details +--------+ + + + + | Date | Type | Department | Care Team | Description | +--------+ + + + + | 11/01/ | Results | Endocrinology, | Beto Meeks MD | | | 2002 | Only | Diabetes and | [address] | | | | | Clinical Nutrition | [place], [place] | | | | | [address] | [address] | | | | | Loop Mailcode: OPC5 | [phone] | | | | | Outpatient Clinic | | | | | | [facility] | | | | | | [place] [address] | | | | | | [phone] | | | +--------+ + + + [...] + | VITAMIN D, | Routin | 11/01/2002 | | Results for this | | 25-HYDROXY, SERUM | e | 3:05 PM | | procedure are in the | | | | PDT | | results section. | + +--------+ + + + | COMPLETE METABOLIC | Routin | 11/01/2002 | | Results for this | | SET | e | 3:05 PM | | procedure are in the | | (NA,K,CL,CO2,BUN,CRE | | PDT | | results section. | | AT,GLUC,CA,AST,ALT,B | | | | | | DEYA TOTAL,ALK | | | | | | PHOS,ALB,PROT TOTAL) | | | | | + +--------+ + + + | FREE T4 | Routin | 11/01/2002 | | Results for this | | | e | 3:05 PM | | procedure are in the | | | | PDT | | results section. | + +--------+ + + + | PTH, SERUM | Routin | 11/01/2002 | | Results for this | | | e | 3:05 PM | | procedure are in the | | | | PDT | | results section. | + +--------+ + + + | TSH | Routin | 11/01/2002 | | Results for this | | | e | 3:05 PM | | procedure are in the | | | | PDT | | results section. | + +--------+ + + + documented in this encounter Results VITAMIN D, 25-HYDROXY (11/01/2002 3:05 PM PDT) + +-------+ + + + | Component | Value | Ref Range | Performed | Pathologist | | | | | At | Signature | + +-------+ + + + | VITAMIN D | 41 | 10 - 68 ng/mL | | | | 25 HYDROXY | | | | | + +-------+ + + + + + | Specimen | + + | | + + + + + + + | Performing | Address | City/State/Zipcode | Phone Number | | Organization | | | | + + + + + | [facility] | [address] | [place] [address] | | | LABORATORY | | | | + + + + + TSH-THYROID STIM HORMONE (11/01/2002 3:05 PM PDT) + + + + + + | Component | Value | Ref Range | Performed | Pathologist | | | | | At | Signature | + + + + + + | TSH | 5.10 (H)Comment: Test | 0.28 - 5.00 | | | | | performed by Colin | uIU/ml | | | | | [facility] | | | | | | Laboratories. | | | | + + + + + + + + | Specimen | + + | | + + + + + + + | Performing | Address | City/State/Zipcode | Phone Number | | Organization | | | | + + + + + | [facility] | [address] | [place] [address] | | | LABORATORY | | | | + + + + + PTH, SERUM (11/01/2002 3:05 PM PDT) + + + + + + | Component | Value | Ref Range | Performed | Pathologist | | | | | At | Signature | + + + + + + | PTH, SERUM | 73.0 (H)Comment: Test | 10.0 - 65.0 | | | | | performed by [facility] | pg/mL | | | | | [facility] | | | | | | Laboratory. | | | | + + + + + + + + | Specimen | + + | | + + + + + + + | Performing | Address | City/State/Zipcode | Phone Number | | Organization | | | | + + + + + | [facility] | [address] | [place] [address] | | | LABORATORY | | | | + + + + + FREE T4, SERUM (11/01/2002 3:05 PM PDT) + + + + + + | Component | Value | Ref Range | Performed | Pathologist | | | | | At | Signature | + + + + + + | FREE T4, | 1.1Comment: Test | 0.7 - 1.8 ng/dL | | | | SERUM | performed by [place] | | | | | | [facility] | | | | | | Laboratories. | | | | + + + + + + + + | Specimen | + + | | + + + + + + + | Performing | Address | City/State/Zipcode | Phone Number | | Organization | | | | + + + + + | [facility] | [address] | [place] [address] | | | LABORATORY | | | | + + + + + COMP METABOLIC SET (11/01/2002 3:05 PM PDT) + +---------+ + + + | Component | Value | Ref Range | Performed | Pathologist | | | | | At | Signature | + +---------+ + + + | GLUCOSE, | 96 [...] +---------+ + + + | TOTAL | 7.6 | 6.1 - 7.9 g/dL | [facility] [...] +---------+ + + + | CALCIUM, | 9.5 [...] + + + | ALK PHOS | 74 | 42 - 98 U/L | [facility] | | | | | | DEPARTMENT | | | | | | OF | | | | | | PATHOLOGY | | + +---------+ + + + | AST(SGOT) | 30 | 15 - 41 U/L | [facility] [...] +---------+ + + + | POTASSIUM, | 3.0 (L) | 3.5 - 5.1 | [facility] [...] + + | [facility] DEPARTMENT OF | [address] | [place] [address] | | | PATHOLOGY | [address] | | | + + + + + | [facility] | [address] | [place] [address] | | | PATHOLOGY | [address] | | | + + + + + documented in this encounter Visit Diagnoses Not on filedocumented in this encounter"
--- OUTSIDE RECORDS SUMMARY | ~2020-01-25 | XMS | Encounter Summary ---
Demographics + + + | Address | [address] | | | [place] [address] | + + + | Home Phone | | + + + | Preferred Language | Unknown | + + + | Marital Status | | + + + | Sabianist Affiliation | 1001 | + + + [...] Team Providers + +------+ + | Care Inventory Control Assistant Name | Role | Phone | + +------+ + | Petrona Thapa | PCP | | | MD | | | + +------+ + Reason for Visit + +--------+ + | Reason | Onset | Comments | | | Date | | + +--------+ + | Paperwork | 09/02/ | | | | 2017 | | + +--------+ + Encounter Details +--------+ + + + + | Date | Type | Department | Care Team | Description | +--------+ + + + + | 09/02/ | Telephone | [facility] | Alanis, | Paperwork | | 2017 | | MEDICINE [address] [place] [address] | MD Petrona | | | | | [place], | [address] [facility] | | | | | [place] [address] | [place] [address] | | | | | [phone] | [phone] | | | | | | | [...] this encounter Miscellaneous Notes Telephone Encounter - Tuan Snider - 09/15/2017 12:09 PM PDTLetter faxed to requested nu mbmissael. Confirmation received. elephone Encounter - Maggie Montoya LPN - 09/15/2017 11:47 AM PDTPatient notified letter printed and will be faxed to requested number elephone Encounter - Petrona Thapa MD - 09/15/2017 11 :00 AM PDTLetter printed. Electronically signed by Petrona Thapa MD at 018 11:01 AM PDTTelephone Encounter - Maggie Montoya LPN - 09/07/2017 3:[address] that she needs a note stating that she was here for an appt on 08/18/17. For amie t for mileage/fuel. Will need to fax it to [phone] signed by Maggie Montoya LPN at 09/07/2017 3:45 PM PDTTelephone Encounter - Susie Gilmore - 09/04/2017 2:44 PM PDT1. Patient called again to ask for a letter stating she was in on the for fuel re imbursement. 2. Please fax a small note with her information and appointment date to [phone]. 3. Call patient to notify upon completion. [phone] elephone Encounter - Malissa Redd - 09/03/2017 2:25 PM PDTPatient called to check on status. Pl ease return her call [phone] signed by Malissa Redd at 09/03/2017 2:26 PM PDTTelephone En counter - Adriana Cantor - 09/02/2017 2:12 PM PDTPatient called wanting to speak with ann-marie blanc nurse. Patient stated when she came in on the she forgot to have them sign a form fo r reimbursement and the patient wants to know if it is possible to have the doctor sign some thing and have it faxed for her mileage/fuel reimbursement. Patient would like a call back to advise, . documented in this encounter Plan of Treatment +--------+---------+ + + + | Date | Type | Specialty | Care Team | Description | +--------+---------+ + + + | 02/15/ | Office | Internal Medicine | Alanis, | | | 2019 | Visit | | MD Petrona | | | | | | [address] | | | | | | [place] [address] | | | | | | [phone] | | | | | | | | +--------+---------+ + + + documented as of this encounter Visit Diagnoses Not on filedocumented in this encounter"
--- OUTSIDE RECORDS SUMMARY | ~2020-01-25 | XMS | Encounter Summary ---
Demographics + + + | Address | [address] | | | [place] [address] | + + + | Home Phone [...] Team Providers + +------+ + | Care Coil Winder Hand Name | Role | Phone | [...]
--- OUTSIDE RECORDS SUMMARY | ~2020-01-25 | XMS | Encounter Summary ---
Demographics + + + | Address | [address] | | | [place] [address] | + + + | Home Phone [...] Providers + +------+ + | Care Auto Overhauler Name | Role | Phone | + +------+ + | Pedrito Gutierrez MD | PCP | | + +------+ + Reason for Visit + + + | Reason | Comments | + + + | Diarrhea | has been in the bathroom since one this morning with IBS/dumping | | | syndrome symptoms | + + + Encounter Details +--------+ + + + + | Date | Type | Department | Care Team | Description | +--------+ + + + + | 10/28/ | Telephone | [facility] | Chris Padgett, | Diarrhea (has been | | 2007 | | [place] [address] | [address] | in the bathroom | | | | Ave Mailcode: CH4S | [facility] | since one this | | | | [facility] | [place], [place] | morning with | | | | and Healing, | [address] | IBS/dumping syndrome | | | | [address], | [phone] | symptoms) | | | | Floor [place], [place] | | | | | | [address] | | | | | | [phone] | | | +--------+ + + + [...]
--- OUTSIDE RECORDS SUMMARY | ~2020-01-25 | XMS | Encounter Summary ---
Demographics + + + | Address | [address] | | | [place] [address] | + + + | Home Phone [...] Team Providers + +------+ + | Care Staff Engineer Name | Role | Phone | + +------+ + | Pedrito Gutierrez MD | PCP | | + +------+ + Reason for Visit Physical Therapy (Routine) +--------+--------+ + + + + | Status | Reason | Specialty | Diagnoses / | Referred By | Referred To | | | | | Procedures | Contact | Contact | +--------+--------+ + + + + | Closed | | Pain | Diagnoses | Miracle, | Erland[place], | | | | Management | Abdominal | NIHARIKA Jean | [address] | | | | | pain, | [address] | | | | | unspecified | [address] | [address] | | | | | site | [place], [place] | [place], [place] | | | | | Cervicalgia | [address] | [address] | | | | | Pain in | | | | | | | joint, site | | | | | | | unspecified | | | | | | | Procedures | | | | | | | [place] | | | | | | | THERAPEUTIC | | | | | | | EXERCISES | | | +--------+--------+ + + + + Encounter Details +--------+---------+ + + + | Date | Type | Department | Care Team | Description | +--------+---------+ + + + | 07/15/ | Office | Comprehensive Pain | Nathalia Arora | Cervical Spondylosis | | 2006 | Visit | [facility] | [address] | without Myelopathy | | | | [place] [address] [place], | (Primary Dx); | | | | [address] [facility] | [place] [address] | Spondylosis with | | | | Health and Healing, | | Myelopathy, Lumbar | | | | Building | | Region; Herniated | | | | Floor [place], [place] | | Lumbar | | | | [address] | | Intervertebral Disc; | | | | [phone] | | Unspecified Myalgia | | | | | | and Myositis | +--------+---------+ + + + Social History [...] + documented as of this encounter Progress Delfina Luevano - 07/17/2006 6:14 PM PSTPhysical Therapy Medicare Authorization/Review Antonio more Note Date: July 17, 2006 Patient: Belinda Meehan, [id number], 1960 I agree with the proposed Physical Therapy Treatment Plan. Provider: DELFINA MOLINA ANP elfina Molina - 007 6:13 PM PST.pt rnaga Nathalia willson - 07/15/2006 4:28 PM PSTFormatting of this note might be different from the origin al. Physical Therapy Medicare Progress Note Date: 07/15/2006 Belinda Meehan [id number]. 1960 Start of Care: 06/23/2006 Referring Provider: Delfina Molina Primary Diagnosis: Encounter Diagnoses Code Name Primary? 721.0 Cervical Spondylosis without Myelopathy Yes 721.42 Spondylosis with Myelopathy, Lumbar Region 722.10H Herniated Lumbar Intervertebral Disc 729.1 Unspecified Myalgia and Myositis Referral Diagnosis: Encounter Diagnoses Code Name Primary? 721.0 Cervical Spondylosis without Myelopathy Yes 721.42 Spondylosis with Myelopathy, Lumbar Region 722.10H Herniated Lumbar Intervertebral Disc 729.1 Unspecified Myalgia and Myositis Date of Onset: 05/29/2006 Insurance: Medicare Number of used/authorized visits: 2/5 Medicare certification from: 06/15/2006 through 07/15/2006 Subjective: Reported pain level 9/10, no change in status Objective: Patient returned today for her 1st physical therapy f/u, last seen for an assess ment only on 06/23. Patient stated she often waits to take her pain meds, and then she is in too much pain; also is sleep deprived secondary to pain and symptoms; and just this past Thu day her pain was so high and she became immobilized, went to the ED and apparently was given an injection. She has almost fallen 3 different times in the past 3 weeks. Patient advise d to use her forearm crutches for safety. Treatment: Initiated in supine table top position with bilateral LE's supported: Deep kaylin athing with abdominal activation, but stopped secondary to increased pressure on lowback. A t that point noted spasm/tightness of right thoracic erector spinae, right and left gluteus maximi; started myofascial release to these areas X 20 minutes, noting significant reduction in tightness and spasm. Initiated sidelying stretch for hip flexors, emphasizing pelvic st ability. Patient continued supine isometric lower abdominal contractions, adding posterio p elvic tilts with good toleration. Then progressed with core stabilization by adding bilater al shoulder F/E X 6 reps. Patient issued written/illustrated instructions of all exercises for her home regime BID. Patient also instructed in using abdominals as a brace for transit ioning from 1 postion to the next and with ADL's. 25 minutes was spent on therapeutic exerc ise. Assessment: With reduction in muscle spasm and tightness patient tolerated supine and sidel jag exercises well; symptoms consistent with mechanical and myofascial sources, discogenic/ facetogenic; with significant decrease in strength and endurance of core. Functional Goals: 1. Prevent injury by preventing falls 2. Sitting X 60 minutes, pain level <5/10 3. Standing and cooking X 30 minutes, pain level <5/10 4. Walking 1/4 of a mile, pain level <5/10 Plan: Continue with physical therapy 3 more visits then reassess, manual therapy as indicat ed, and progress in core and hip strengthening regime as tolerated; isolated stretches for h ips, trunk, and lower extremities, neuromuscular and postural reeducation. Treatment began: 1419 Treatment ended: 1509 Nathalia Arora, Physical Therapist License number [id number] documented in this encoun ter Plan of Treatment + + +--------+ + + | Name | Type | Priori | Associated Diagnoses | Order Schedule | | | | ty | | | + + +--------+ + + | [place] MANUAL THER | Procedures | Routin | Cervical | Ordered: 07/15/2006 | | TECH,1+REGIONS,EA 15 | | e | Spondylosis without | | | MIN | | | Myelopathy | | | | | | Spondylosis with | | | | | | Myelopathy, Lumbar | | | | | | Region Herniated | | | | | | Lumbar | | | | | | Intervertebral Disc | | | | | | Unspecified Myalgia | | | | | | and Myositis | | + + +--------+ + + | [place] THERAPEUTIC | Procedures | Routin | Cervical | Ordered: 07/15/2006 | | EXERCISES | | e | Spondylosis without | | | | | | Myelopathy | | | | | | Spondylosis with | | | | | | Myelopathy, Lumbar | | | | | | Region Herniated | | | | | | Lumbar | | | | | | Intervertebral Disc | | | | | | Unspecified Myalgia | | | | | | and Myositis | | + + +--------+ + + documented as of this encounter Visit Diagnoses + + | Diagnosis | + + | Cervical spondylosis without myelopathy - Primary | + + | Spondylosis with myelopathy, lumbar region | + + | Herniated lumbar intervertebral disc Displacement of lumbar intervertebral disc | | without myelopathy | + + | Myalgia and myositis, unspecified Mylagia and myositis, unspecified | + + documented in this encounter"
--- OUTSIDE RECORDS SUMMARY | ~2020-01-25 | XMS | Encounter Summary ---
Demographics + + + | Address | [address] | | | [place] [address] | + + + | Home Phone [...] Team Providers + +------+ + | Care Database Programmer Analyst Name | Role | Phone | + +------+ + PCP | Unavailable | + +------+ + Encounter Details +--------+ + + + + | Date | Type | Department | Care Team | Description | +--------+ + + + + | 02/18/ | Results | Endocrinology, | Beto Meeks MD | | | 2000 | Only | Diabetes and | [address] | | | | | Clinical Nutrition | [place], [place] | | | | | [address] | [address] | | | | | Loop Mailcode: [id number] | [phone] | | | | | Outpatient Clinic | | | | | | [facility] | | | | | | [place] [address] | | | | | | [phone] | | | +--------+ + + + [...] | CA -CALCIUM, SERUM | Routin | 02/18/2001 | | Results for this | | | e | 12:00 PM | | procedure are in the | | | | PDT | | results section. | + +--------+ + + + | PTH, SERUM | Routin | 02/18/2001 | | Results for this | | | e | 12:00 PM | | procedure are in the | | | | PDT | | results section. | + +--------+ + + + | TSH | Routin | 02/18/2001 | | Results for this | | | e | 12:00 PM | | procedure are in the | | | | PDT | | results section. | + +--------+ + + + documented in this encounter Results CA -CALCIUM, SERUM (02/18/2001 12:00 PM PDT) + +-------+ + + + | Component | Value | Ref Range | Performed | Pathologist | | | | | At | Signature | + +-------+ + + + | CALCIUM, | 9.3 | 8.4 - 10.2 | | | | SERUM | | mg/dL | | | + +-------+ + + + + + | Specimen | + + | | + + + + + + + | Performing | Address | City/State/Zipcode | Phone Number | | Organization | | | | + + + + + | [facility] | [address] | [place] [address] | | | LABORATORY | | | | + + + + + PTH, SERUM (02/18/2001 12:00 PM PDT) + + + + + + | Component | Value | Ref Range | Performed | Pathologist | | | | | At | Signature | + + + + + + | PTH, SERUM | 67.0 (H) | 10.0 - 65.0 | | | | | | pg/mL | | | + + + + + + + + | Specimen | + + | | + + + + + + + | Performing | Address | City/State/Zipcode | Phone Number | | Organization | | | | + + + + + | [facility] | [address] | [place] [address] | | | LABORATORY | | | | + + + + + TSH-THYROID STIM HORMONE (02/18/2001 12:00 PM PDT) + +-------+ + + + | Component | Value | Ref Range | Performed | Pathologist | | | | | At | Signature | + +-------+ + + + | TSH | 2.50 | 0.28 - 5.00 | | | | | | uIU/ml | | | + +-------+ + + + + + | Specimen | + + | | + + + + + + + | Performing | Address | City/State/Zipcode | Phone Number | | Organization | | | | + + + + + | [facility] | [address] | [place] [address] | | | LABORATORY | | | | + + + + + documented in this encounter Visit Diagnoses Not on filedocumented in this encounter"
--- OUTSIDE RECORDS SUMMARY | ~2020-01-25 | XMS | Encounter Summary ---
Demographics + + + | Address | [address] | | | [place] [address] | + + + | Home Phone [...] Team Providers + +------+ + | Care Patternmaker Wood Name | Role | Phone | + +------+ + | Petrona Thapa | PCP | | | MD | | | + +------+ + Reason for Visit + + + | Reason | Comments | + + + | Neck Pain | Neck pain that radiates between the shoulder blades and down from | | | there | + + + Evaluate & Treat (Routine) +--------+--------+ + + + + | Status | Reason | Specialty | Diagnoses / | Referred By | Referred To | | | | | Procedures | Contact | Contact | +--------+--------+ + + + + | Closed | | Physical | Diagnoses | | [place], | | | | Medicine and | Low back | Emmy-Jefft | Carlos Armijo MD | | | | Rehabilitatio | pain | i, | [address] | | | | n | | [place] | [address] [place] | | | | | MD [address] | [place] | | | | | | [address] | [address] Phone: | | | | | | [place], | [phone] | | | | | | [place] | Fax: | | | | | | [address] | [phone] | | | | | | Phone: | | | | | | | [phone] | | | | | | | Fax: | | | | | | | [phone] | | +--------+--------+ + + + + Encounter Details +--------+---------+ + + + | Date | Type | Department | Care Team | Description | +--------+---------+ + + + | 01/04/ | Office | [facility] | Carlos Hsieh | Fibromyalgia | | 2015 | Visit | PHYSIATRY [address] | MD Zofia [address] | (Primary Dx); S/P | | | | [address] | [address] [place]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; | | | | [place] | [address] | Chronic neck pain; | | | | [address] | | Chronic low back | | | | [phone] | | pain; Lumbar | | | | | | radiculopathy | | | | | | primarily right; | | | | | | Right arm pain; | | | | | | RHEUMATOID ARTHRITIS | +--------+---------+ + + + Social History [...] + + + | Blood Pressure | 144/74 | 01/04/2015 8:07 AM | | | | | PDT | | + + + + + | Pulse | 68 | 01/04/2015 8:07 AM | | | | | PDT [...] Weight | 85.3 kg (188 lb) | 01/04/2015 8:07 AM | | | | | PDT | | + + + + + | Height | 172.7 cm (5' 8") | 01/04/2015 8:07 AM | | | | | PDT | | + + + + + | Body Mass Index | 28.59 | 01/04/2015 8:07 AM | | | | | PDT | | + + + + + documented in this encounter Patient Instructions Patient Instructions Catrina Kuo, Master of Arts - 01/04/2015 8:36 AM PDT Follow-up at the hospital thirty minutes before your scheduled procedure to allow for time to check in. You may eat and drink as usual on the day of the procedure. If you are scheduled for an epidural injection do not take any blood thinning medications f or at least 5-7 days prior to your procedure unless you have been instructed by another phys ician not to discontinue blood thinning medications. If you are having a procedure other than an epidural injection (i.e. facet injection, media l branch block, SI joint injection or other joint injection) it is not absolutely necessary to discontinue blood thinning medications but doing so will decrease the risk of bruising or bleeding. If you have had a prior stroke, DVT or PE or if you are taking blood thinning medication be cause you have atrial fibrillation, a prosthetic cardiac valve replacement or heart stenting do not stop taking your blood thinning medications unless you have permission from your car diologist or primary care provider. All other medications should be taken as usual on the day of the procedure. Common blood thinning medications include: Aspirin (a baby aspirin is o.k.) Ibuprofen (Advil or Motrin) Naproxen (Aleve) Nabumetone (Relafen) Clopidogrel (Plavix) Dipyridamole/ASA (Aggrenox) Warfarin (Coumadin) Dabigatran (Pradaxa) Rivaroxaban (Xarelto) There are many others. If you have questions about your medications and whether or not you should stop any medications please contact our office. If you are having an epidural injection or if you take any medication for relaxation/sedati on on the day of the procedure you must provide a otr truck driver to take you home. For all procedur es it is recommended that someone else drive you home. documented in this encounter Progress Notes Carlos Hsieh MD - 01/04/2015 8:13 AM PDT Carlos Hsieh MD [address] [place] [address], [address] [place], [place] [address] FAX: PHYSICAL MEDICINE AND REHABILITATION H&P CHIEF COMPLAINT: Chief Complaint Patient presents with Neck Pain Neck pain that radiates between the shoulder blades and down from there HISTORY OF PRESENT ILLNESS: The patient is a 54 y.o. female being seen today at the [facility] of Dr. Booth for complaints of pain "all over" that began years ago. She does localize m uch of the pain between the shoulder blades, where her bra strap is located, into the right arm as well as in the lower back and legs, right greater than left. The patient reports moris t the pain started without any inciting event. She does have a chronic history of low back i ssues and reportedly has had 3 prior lumbar surgeries including a fusion from L3-S1. The sym ptoms have been rapidly worsening. The patient reports that when she turns her head to the left she gets a pain that radiates down her arm. She is apparently scheduled for a new MRI c ervical spine next week. She rates the pain as severe. The symptoms are continuous. She describes the pain as achi ng, burning, sharp and shooting. The patient describes leg symptoms that occur on both sides, right greater than left. The a rm and leg symptoms account for greater than or equal to 50% of her symptoms. The arm and l eg symptoms are persistent and the symptoms travel all the way to the right hand and both fe et. The patient does report numbness in the right arm and right leg. She does report gen eralized weakness of the legs and right arm. The patient does not report any change in bowel or bladder function or saddle anesthesia re cently. Her symptoms improve with rest and changing position. Her symptoms worsen with sitting, kneeling, bending and twisting. She has tried PT, TENS, Steroids, Injections, Muscle relaxers and Braces. The patient has reportedly had three prior lumbar surgeries which were performed by a Dr. García in [place]. Th e patient is unable to take NSAID's because apparently last time she took them she was black and blue all over. PAST MEDICAL HISTORY: Past Medical History Diagnosis Date Diarrhea Osteoarthritis, generalized Migraine Osteopenia Obesity Syncope Hyperparathyroidism ([facility]) RLS (restless legs syndrome) OLIVER (obstructive sleep apnea) Depression COPD (chronic obstructive pulmonary disease) ([facility]) Fibromyalgia Peripheral neuropathy Chronic pain Benign essential hypertension Rheumatoid arthritis (H[facility]) IBS (irritable bowel syndrome) Scoliosis Hypothyroidism Stroke ([facility]) Blind left eye Arthritis Osteoporosis Migraines Dumping syndrome Tremor Meniere syndrome S/P lumbar fusion 01/04/2015 Chronic neck pain 01/04/2015 Chronic low back pain 01/04/2015 Lumbar radiculopathy primarily right 01/04/2015 Right arm pain 01/04/2015 PAST SURGICAL HISTORY: Past Surgical History Procedure Laterality Date Breast lumpectomy Left 2002 Tonsillectomy Adenoidectomy Hysterectomy Appendectomy Gastric bypass surgery 2004 Cholecystectomy 2004 Joint replacement Bilateral 2007,2008 Spine surgery CURRENT MEDICATIONS: Current Outpatient Prescriptions Medication Sig [...] visit. ALLERGIES: Allergies Allergen Reactions Amitriptyline Hcl Clrhtkwiyi-Dkjg-Hhkvungj Cephalexin Ciprofloxacin Clarithromycin Clindamycin Hcl Codeine Sulfate Ketorolac Levofloxacin Morphine Penicillins Sulfamethoxazole-Tmp Ds Tramadol Hcl SOCIAL HISTORY: The patient reports that she quit smoking about 8 months ago. Her smoking use included Cig arettes. She has a 15 pack-year smoking history. She has never used smokeless tobacco. She r eports that she does not drink alcohol or use illicit drugs. FAMILY HISTORY: Family History Problem Relation Age of Onset Arthritis Mother High blood pressure Mother Seizures Sister Arthritis Maternal Grandmother High blood pressure Maternal Grandmother Stroke Maternal Grandmother Arthritis Maternal Grandfather Heart disease Maternal Grandfather High blood pressure Maternal Grandfather High blood pressure Paternal Grandmother Heart disease Paternal Grandmother High blood pressure Paternal Grandfather Heart disease Paternal Grandfather REVIEW OF SYSTEMS: GENERALLY: No fever, no night sweats, no anemia, no fatigue, no recent profound weight ch anges. EYES: + eye problems, no use of corrective lenses, no eye injury, + double vision, no blin dness. EARS, NOSE, AND THROAT: No changes in taste or smell, no hearing difficulty, + ringing in the ears, no ear drainage, + dizziness, no voice changes, no difficulty swallowing, no signi ficant snoring, + sleep apnea, no sinus problems, no major dental work. NEUROLOGICALLY: Please see the review of systems discussed above in the history of present illness. In addition, the patient has numbness/pain of arms, numbness/pain of legs, awake with numbness/pain, weakness, coordination difficulty, change in walk, pain in neck, pain in back, tremor/shaking, headaches, migraine, memory loss and confusion. PSYCHIATRIC: No depression, + sleep disorders, no anxiety, no bipolar disorder, no psychot ic episodes. CARDIOVASCULAR: No heart attacks, no heart murmur, no heart fluttering, no chest pain, + a nkle swelling. LUNG DISEASE: No shortness of breath, no cough, no tuberculosis, no bloody cough, no asth ma, no emphysema/COPD. GASTROINTESTINAL: + bowel disease, no nausea or vomiting, no rectal bleeding, no constipat ion, + stool incontinence, no liver disease, no gallbladder disease, + abdominal pain, no ul cers. KIDNEY DISEASE: + urinary frequency, no painful or difficult urination, no incontinence. ENDOCRINE: No diabetes, + thyroid disease, + osteopenia or osteoporosis, no breast drainag e. SKIN: No breast lumps, no skin changes, no rashes, no itches. HEMATOLOGIC/LYMPHATIC: No enlarged lymph nodes, no easy or unusual bleeding, no personal h istory of cancer. RHEUMATOLOGIC: + joint arthritis, + rheumatoid arthritis. PHYSICAL EXAMINATION: Blood pressure 144/74, pulse 68, height 1.727 m (5' 8"), weight 85.276 kg (188 lb). Body ma ss index is 28.59 kg/(m^2). GENERAL: The patient is well developed and well nourished. She does appear uncomfortable w hen seated. HEENT: HEAD/FACE: EYES: Normocephalic and atraumatic. There are no areas of recent trauma. Normal sclerae without icterus. SKIN Limited skin exam shows redness of both shins. There are scars in the lumbar region. CHEST: The patient is in no acute respiratory distress with unlabored respirations. HEART: There is lower extremity edema. ABDOMEN: The patient is overweight. NEUROLOGIC: The patient is awake, alert, and oriented to time, place, person. She follows simple and complex commands. Her speech is fluent. She comprehends speech well. She has no apparent deficits with short or prison memory. She has appropriate fund of knowledge Cranial nerves 2-12 appear grossly intact. With the exception of blindness in the left eye. Sensory exam does show diminished sensation to light touch in the upper and lower extremiti es. REFLEX: RIGHT LEFT BICEPS 2+ 2+ BRACHIORADIALIS 2+ 2+ TRICEPS 2+ 2+ PATELLAR trace trace ACHILLES 0 0 RAMIREZ'S Negative Negative PLANTAR Downgoing Downgoing MUSCULOSKELETAL There is apparent deformity of the spine and the patient stands and sits le aning to the right side. Straight leg raise and slump-sit are positive bilaterally. Romeo's maneuver and impingem ent testing were negative for any groin pain. There was no tenderness to palpation over th e greater trochanters, she was tender over the sacral sulci bilaterally. The patient could not localize the majority of the pain to one specific area but did report pain all up and do wn the spine. Lumbar facet loading was negative. Strength testing showed 5/5 strength thro ughout the lower extremities. The patient was able to heel and toe walk without difficulty. There was no redness, effusion, warmth or joint line tenderness in the knees or ankles. Range of motion testing of the cervical spine was decreased with lateral bending especially . Spurling sign was positive. Shoulder examination shows well preserved range of motion with external rotation, internal rotation and abduction. Impingement testing was negative. Th ere was no tenderness over the bicipital groove or over the AC joint. Speed's test was nega tive. Empty can test was negative. Strength testing, including strength testing of the infra spinatus, supraspinatus and subscapularis, in bilateral upper extremities showed diffuse wea kness. RADIOGRAPHIC REVIEW: The patient's imaging was reviewed in detail with the patient today during the visit. The MRI of the lumbar spine from 05/08/14 shows the spinal fusion from L3-S1. There does still appear to be foraminal stenosis at the L5-S1 level. The MRI of the cervical spine from 2012 shows mild disc bulging, most pronounced at C5-C6. There is some foraminal narrowing on th e right at C3-C4 and C4-C5 as well as on the left at C5-C6. IMPRESSION: Encounter Diagnoses Name Primary? Fibromyalgia Yes S/P lumbar fusion Chronic neck pain Chronic low back pain Lumbar radiculopathy primarily right Right arm pain RHEUMATOID ARTHRITIS PLAN: 1. The patient has had significant conservative care including medications, PT and chiropra ctic care. Unfortunately she continues to have significant discomfort. She did report that s he has had good relief with injections in the past and therefore I did feel that she would b e a decent candidate for interventional procedures. Possible injections were discussed in de tail with the patient today. I offered bilateral L5-S1 epidural steroid injections as the ne xt step. She was informed that SI joint injections may be warranted in the future if the leg symptoms are improved but she continues to have tenderness over the SI joints. 2. The patient is already scheduled for a new MRI of the cervical spine next week at [facility]. The patient was informed to contact our office once this has been completed so I ca n review it. 3. The patient was informed that I do not do narcotic medication management and this is jeni ething she will need to continue seeing her PCP for. ELECTRONICALLY EDITED AND SIGNED BY: Carlos Hsieh MD, 01/04/2015 Scribed by: Catrina Kuo MA for Dr. Carlos Hsieh on 01/04/2015 documented in this encounter Plan of Treatment +--------+---------+ + + + | Date | Type | Specialty | Care Team | Description | +--------+---------+ + + + | 02/15/ | Office | Internal Medicine | Alanis, | | | 2019 | Visit | | MD [place] | | | | | | [address] [facility] [address] | | | | | | [place] [address] | | | | | | [phone] | | | | | | | | +--------+---------+ + + + documented as of this encounter Results FL ELIANA Lumbar Transforaminal (01/19/2015 12:00 PM PDT) + + | Specimen | + + | | + + + + + | Narrative | Performed At | + + + | 01/19/2015 Bilateral Transforaminal Epidural Steroid Injections | [facility] | | Diagnosis: Lumbar radiculopathy ICD-9 Code 724.4 Belindanevin Basilio | [facility] | | Shefali presents to the fluoroscopy suite for [facility] | | fluoroscopically-guided bilateral L5-S1 transforaminal epidural [...] + | [facility] | [address] | [place], [place] | [phone] | | [facility] | | [address] | | | - IMAGING | | | | + + + + + documented in this encounter Visit Diagnoses + + | Diagnosis | + + | Fibromyalgia - Primary Mylagia and myositis, unspecified | + + | S/P lumbar fusion Arthrodesis status | + + | Chronic neck pain Cervicalgia | + + | Chronic low back pain Lumbago | + + | Lumbar radiculopathy primarily right Thoracic or lumbosacral neuritis or radiculitis, | | unspecified | + + | Right arm pain Pain in limb | + + | RHEUMATOID ARTHRITIS Rheumatoid arthritis | + + documented in this encounter
--- OUTSIDE RECORDS SUMMARY | ~2020-01-25 | XMS | Encounter Summary ---
Demographics + + + | Address | [address] | | | [place] [address] | + + + | Home Phone [...] Providers + +------+ + | Care Data Conversion Operator Name | Role | Phone | + +------+ + PCP | Unavailable | + +------+ + Encounter Details +--------+ + + + + | Date | Type | Department | Care Team | Description | +--------+ + + + + | 08/11/ | Hospital | [facility] | Ruben Tobias | | | 2001 | Encounter | MED CTR SLEEP | MD Raji [address] | | | | | [place] [address] | [place] [facility] | | | | | [place], [place] | [place] [address] | | | | | [address] | [phone] | | | | | [phone] | | | +--------+ + + + [...] | | | | | | [place] [address] | | | | | | [phone] | | | | | | | | +--------+---------+ + + + documented as of this encounter Visit Diagnoses Not on filedocumented in this encounter"
--- OUTSIDE RECORDS SUMMARY | ~2020-01-25 | XMS | Encounter Summary ---
Demographics + + + | Address | [address] | | | [place] [address] | + + + | Home Phone [...] Team Providers + +------+ + | Care Groundwater Consultant Name | Role | Phone | [...] Floor | | | | | | [place], [place] | | | | | | [address] | | | | | | [phone] | | | +--------+ + + + [...] No: | | | | | | [id number] Name: | | | | | | BELINDA MEEHAN | | | | | | Birthday: 1960 | | | | | | Sex: F | | | | | | Alias:Patient Location: | | | | | | [id number]: Outpatient | | | | | | ActiveOrdering | | | | | | Physician: JOSÉ MIGUEL | | | | | | MARYSOL MORENO SCAPULA | | | | | | COMPLETE completed on | | | | | | 01/01/2009 11:55 | | | | | | AMAccession # | | | | | | [id number]:LEFT | | | | | | SCAPULA [...]
--- OUTSIDE RECORDS SUMMARY | ~2020-01-25 | XMS | Encounter Summary ---
Demographics + + + | Address | [address] | | | [place] [address] | + + + | Home Phone [...] Team Providers + +------+ + | Care Enrollment Services Dean Name | Role | Phone | + +------+ + PCP | Unavailable | + +------+ + Reason for Visit + + + | Reason | Comments | + + + | Abdominal pain | | + + + Encounter Details +--------+ + + + + | Date | Type | Department | Care Team | Description | +--------+ + + + + | 01/13/ | Telephone | [facility] | Nuris Cardenas ANP | Abdominal pain | | 2005 | | [place] [address] | | | | | [address] | | | | | | Mailcode: [id number] | | | | | | Physician's [place] | | | | | | [place], [place] | | | | | | [address] | | | | | | [phone] | | | +--------+ + + + [...]
--- OUTSIDE RECORDS SUMMARY | ~2020-01-25 | XMS | Encounter Summary ---
Demographics + + + | Address | [address] | | | [place] [address] | + + + | Home Phone [...] Team Providers + +------+ + | Care Block Captain Name | Role | Phone | [...] as of this encounter Progress Notes Interface, Group Leader [employer] Processing In - 08/19/2005 2:05 AM PST [id number] [facility] Date: 07/24/2005 Clinic: Hematology [...] full and complete summary. Lukasz Sellers M.D. roll shop supervisor NANCY / SHARIF [id number] / [id number] / [id number] / [phone] cc: Pedrito Gutierrez M.D. [address] [place] [address] Electronically signed by Lukasz Sellers 08-18-2005 01:28:24 PM documented i n this encounter Plan of Treatment Not on filedocumented as of this encounter Visit Diagnoses Not on filedocumented in this encounter"
--- OUTSIDE RECORDS SUMMARY | ~2020-01-25 | XMS | Encounter Summary ---
Demographics + + + | Address | [address] | | | [place] [address] | + + + | Home Phone [...] Phone | + + +---------+ + | Adraina Caregiver | ECON | Unknown | | | Rudy | | | | + + +---------+ + | Sree Wells | ECON | Unknown | | + + +---------+ + | Marco Antonio Wells | ECON | Unknown | | + + +---------+ + Care Team Providers + +------+ + | Care Ground Crew Supervisor Name | Role | Phone | + +------+ + | [place] Thapa | PCP | | | MD | | | + +------+ + Encounter Details +--------+ + + + + | Date | Type | Department | Care Team | Description | +--------+ + + + + | 12/01/ | Episode | [facility] | Dixie Salomon, | | | 2017 | Changes | GASTROENTEROLOGY | RN | | | | | [address] | | | | | | [address] [place] | | | | | | [address] | | | | | | [phone] | | | +--------+ + + + [...] | | | | | | [address] [facility] [address] | | | | | | [place] [address] | | | | | | [phone] | | | | | | | | +--------+---------+ + + + documented as of this encounter Visit Diagnoses Not on filedocumented in this encounter"
--- OUTSIDE RECORDS SUMMARY | ~2020-01-25 | XMS | Encounter Summary ---
Demographics + + + | Address | [address] | | | [place] [address] | + + + | Home Phone | | + + + | Preferred Language | Unknown | + + + | Marital Status | | + + + | Hoahaoism Affiliation | 1001 | + + + | Race | Unknown | + + + | Ethnic Group | Unknown | + + + Author + + + | Author | [facility] | | | and [place] | + + + | Organization | [facility] | | | and [...] Team Providers + +------+ + | Care Fabric Designer Name | Role | Phone | [...] + | 06/25/ | Refill | [facility] | Alanis, | Medication Refill | | 2018 | | MEDICINE [address] | MD Petrona | | | | | [place], | [address] [facility] | | | | | [place] [address] | [place] [address] | | | | | [phone] | [phone] | | | | | | | [...] Telephone Encounter - Maggie Montoya LPN - 06/28/2018 11:14 AM PSTLast appt: 06/17/18 Next appt: 09/15/18 docum ented in this [...] | | | | | [place] [address] | | | | | | [phone] | | | | | | | | +--------+---------+ + + + documented as of this encounter Visit Diagnoses Not on filedocumented in this encounter"
--- OUTSIDE RECORDS SUMMARY | ~2020-01-25 | XMS | Encounter Summary ---
Demographics + + + | Address | [address] | | | [place] [address] | + + + | Home Phone [...] Team Providers + +------+ + | Care Cycle Touring Guide Name | Role | Phone | + +------+ + | Sulaiman Carrera MD | PCP | | + +------+ + Encounter Details +--------+ + + + + | Date | Type | Department | Care Team | Description | +--------+ + + + + | 06/24/ | Document-Sc | UNKNOWN DEPARTMENT | Unknown . | | | 2004 | anned | [address] | | | | | | [address] | | | | | | [place], [place] | | | | | | [address] | | | +--------+ + + + [...]
--- OUTSIDE RECORDS SUMMARY | ~2020-01-25 | XMS | Encounter Summary ---
Demographics + + + | Address | [address] | | | [place] [address] | + + + | Home Phone | | + + + | Preferred Language | Unknown | + + + | Marital Status | | + + + | Advent Affiliation | 1001 | + + + | Race | Unknown | + + + | Ethnic Group | Unknown | + + + Author + + + | Author | [facility] | | | and [place] | + + + | Organization | [facility] | | [...] Team Providers + +------+ + | Care Assessment Nurse Practitioner Name | Role | Phone | + +------+ + | Petrona Thapa | PCP | | | MD | | | + +------+ + Reason for Visit + +--------+ + | Reason | Onset | Comments | | | Date | | + +--------+ + | Medical Problem | 11/09/ | | | | 2018 | | + +--------+ + Encounter Details +--------+ + + + + | Date | Type | Department | Care Team | Description | +--------+ + + + + | 11/09/ | Telephone | [facility] | Alanis, | Medical Problem | | 2018 | | MEDICINE [address] | MD Petrona | | | | | [place], | [address] [facility] | | | | | [place] [address] | [place] [address] | | | | | [phone] | [phone] | | | | | | | [...] this encounter Miscellaneous Notes Telephone Encounter - Jan, Maggie Leonardo LPN - 11/09/2018 9:25 AM PDTReceived call from slick jacobsen, with complaints of diarrhea with N/V now for 2 days, unable to keep anything down, abdomi nal pain with fever, states temp 100-101. Per MD instructed to seek medical attention at the nearest ED. JOJO. Patient understands and accepts documented in this encounter Plan of Treatment +--------+---------+ + + + | Date | Type | Specialty | Care Team | Description | +--------+---------+ + + + | 02/15/ | Office | Internal Medicine | Alanis, | | | 2019 | Visit | | MD Petrona | | | | | | [address] | | | | | | [place] [address] | | | | | | [phone] | | | | | | | | +--------+---------+ + + + documented as of this encounter Visit Diagnoses Not on filedocumented in this encounter"
--- OUTSIDE RECORDS SUMMARY | ~2020-01-25 | XMS | Encounter Summary ---
Demographics + + + | Address | [address] | | | [place] [address] | + + + | Home Phone [...] Providers + +------+ + | Care Medical Physics Teacher Name | Role | Phone | [...] Rd | | | | | | [place], [place] | | | | | | [address] | | | +--------+ + + + [...]
--- OUTSIDE RECORDS SUMMARY | ~2020-01-25 | XMS | Encounter Summary ---
Demographics + + + | Address | [address] | | | [place] [address] | + + + | Home Phone [...] Team Providers + +------+ + | Care Hammer Runner Name | Role | Phone | + +------+ + | Pedrito Gutierrez MD | PCP | | + +------+ + Encounter Details +--------+ + + + + | Date | Type | Department | Care Team | Description | +--------+ + + + + | 01/11/ | Telephone | [facility] | Chris Padgett, | | | 2009 | | [place] [address] | [address] [facility] | | | | | [place] Mailcode: CH4S | [facility] | | | | | Center for Health | [place], [place] | | | | | and Healing, | [address] | | | | | Building | [phone] | | | | | Floor [place], [place] | | | | | | [address] | | | | | | [phone] | | | +--------+ + + + [...]
--- OUTSIDE RECORDS SUMMARY | ~2020-01-25 | XMS | Encounter Summary ---
Demographics + + + | Address | [address] | | | [place] [address] | + + + | Home Phone [...] & [facility] | | | and [place] | + [...] Team Providers + +------+ + | Care Securities Sales Associate Name | Role | Phone | [...] + + | 03/02/ | Telephone | [facility] | Alanis, | Lab Results | | 2017 | | MEDICINE [address] | MD Petrona | | | | | [place], | [address] [facility] | | | | | [place] [address] | [place] [address] | | | | | [phone] | [phone] | | | | | | | [...] Telephone Encounter - Maggie Montoya LPN - 03/02/2018 4:22 PM PDTPatient notified [...] | | | | | [place] [address] | | | | | | [phone] | | | | | | | | +--------+---------+ + + + documented as of this encounter Visit Diagnoses Not on filedocumented in this encounter"
--- OUTSIDE RECORDS SUMMARY | ~2020-01-25 | XMS | Encounter Summary ---
Demographics + + + | Address | [address] | | | [place] [address] | + + + | Home Phone [...] Providers + +------+ + | Care Teacher Cclc Name | Role | Phone | + +------+ + | Pedrito Gutierrez MD | PCP | | + +------+ + Reason for Visit + + + | Reason | Comments | + + + | Small bowel capsule | | | endoscopy procedure | | + + + Encounter Details +--------+ + + + + | Date | Type | Department | Care Team | Description | +--------+ + + + + | 05/12/ | Procedure | [facility] | | Small bowel capsule | | 2005 | | Center at [facility] [address] | | endoscopy procedure | | | | [facility] | | | | | | for Health and | | | | | | [facility] | | | | | | [place], [place] | | | | | | [address] | | | | | | [phone] | | | +--------+ + + + [...] + documented as of this encounter Progress Earnest Gomes - 05/12/2006 10:43 AM Jessica Barnes Shefali underwent a small bowel capsule en doscopy in the Gastroenterology [facility] at [facility], see transcri bed report. Earnest Ward documented in this encount er Plan of Treatment + + +--------+ + + | Name | Type | Priori | Associated Diagnoses | Order Schedule | | | | ty | | | + + +--------+ + + | FL GI TRACT IMAGING, | Procedures | Routin | Unspecified Iron | Ordered: 12/26/2008 | | INTRALUMINAL | | e | Deficiency Anemia | | | | | | Abdominal Pain | | + + +--------+ + + documented as of this encounter Visit Diagnoses + + | Diagnosis | + + | Iron deficiency anemia, unspecified | + + | Abdominal pain Abdominal pain, unspecified site | + + documented in this encounter"
--- OUTSIDE RECORDS SUMMARY | ~2020-01-25 | XMS | Encounter Summary ---
Demographics + + + | Address | [address] | | | [place] [address] | + + + | Home Phone [...] Providers + +------+ + | Care Supervisor Firearms Name | Role | Phone | + [...] | | [facility] | [place], [place] | and counseling; | | | | [address] | [address] | [place] | | | | [address] | [phone] | | | | | [facility] | | | | | | Physician's | | | | | | [facility], | | | | | | [place] [address] | | | | | | [phone] | | | +--------+ + + + [...]
--- OUTSIDE RECORDS SUMMARY | ~2020-01-25 | XMS | Encounter Summary ---
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 female [facility] Return Visit [...] the fentanyl is not sticking leaving Belinda icsneros on treatment since Thursday12/19/06 she d enies [...] Simons. We reviewed materials risk notice and [facility] opioid agreement. A ll questions were [...] management and reduce opioid need. DELFINA MOLINA [facility] Mail code CH 4P [facility] [address] [facility] [address] Ailyn Foster - 12/22/19 12:51 PM [...]
--- OUTSIDE RECORDS SUMMARY | ~2020-01-25 | XMS | Encounter Summary ---
Demographics + + + | Address | [address] | | | [place] [address] | + + + | Home Phone [...] Team Providers + +------+ + | Care Infrastructure Project Manager Name | Role | Phone | + +------+ + | Pedrito Gutierrez MD | PCP | | + +------+ + Reason for Visit Consultation (Routine) +--------+--------+ + + + + | Status | Reason | Specialty | Diagnoses / | Referred By | Referred To | | | | | Procedures | Contact | Contact | +--------+--------+ + + + + | Closed | | Bone | Diagnoses | Constantino | Brandon Bone | | | | Densitometry | Osteopenia | MD Beto | Density [facility] | | | | | Procedures | [address] | [address] | | | | | CONSULT TO | Ave | [address] | | | | | BONE | [place], [place] | Rd Mailcode: | | | | | DENSITOMETRY | [address] | [address] Edu[address] | | | | | | Phone: | [address] | | | | | | [phone] | [place], [place] | | | | | | Fax: | [address] | | | | | | [phone] | Phone: | | | | | | | [phone] | | | | | | | Fax: | | | | | | | [phone] | +--------+--------+ + + + + Encounter Details +--------+ + + + + | Date | Type | Department | Care Team | Description | +--------+ + + + + | 07/24/ | Hospital | Endocrinology, | Sjh, Bmd Dexa | | | 2008 | Encounter | Diabetes and | [address] | | | | | Clinical Nutrition | [facility], | | | | | [address] | [place] [address] | | | | | [facility] Mailcode: | | | | | | [address] | | | | | | [address] [place], [place] | | | | | | [address] | | | | | | [phone] | | | +--------+ + + + [...] documented as of this encounter Progress Notes Angelica Roberts - 07/24/2008 12:00 AM PSTBone density scans performed. Please see the Interpretation Report, located in chart Review, under the Media tab. documented in this encou nter Plan of Treatment Not on filedocumented as of this encounter Procedures + +--------+ + + + | Procedure Name | Priori | Date/Time | Associated Diagnosis | Comments | | | ty | | | | + +--------+ + + + | DIAGNOSTIC STUDIES | | 04/17/2009 | | Results for this | | | | 5:16 PM | | procedure are in the | | | | PST | | results section. | + +--------+ + + + | BONE DENSITOMETRY | | 07/24/2008 | | Results for this | | | | 11:59 PM | | procedure are in the | | | | PST | | results section. | + +--------+ + + + documented in this encounter Results DIAGNOSTIC STUDIES (04/17/2009 5:16 PM PST) + + + | Narrative | Performed At | + + + | A scan was | | | deleted from the Results section by P Byron [[id number]] on | | | 04/17/2009 at 5:16 PM (File: [id number]) | | + + + BONE DENSITOMETRY (07/24/2008 11:59 PM PST) + + + | Narrative | Performed At | + + + | Ordered by an | | | unspecified provider. | | + + + + + | Transcriptions | + + | 07/24/2008 11:59 PM PST | | | + + documented in this encounter Visit Diagnoses + + | Diagnosis | + + | Osteopenia Disorder of bone and cartilage, unspecified | + + | Encounter for long-term (current) use of other medications | + + documented in this encounter"
--- OUTSIDE RECORDS SUMMARY | ~2020-01-25 | XMS | Encounter Summary ---
Demographics + + + | Address | [address] | | | [place] [address] | + + + | Home Phone [...] Team Providers + +------+ + | Care Feather Sawyer Name | Role | Phone | + +------+ + | Petrona Thapa | PCP | | | MD | | | + +------+ + Reason for Visit + +--------+ + | Reason | Onset | Comments | | | Date | | + +--------+ + | Appointment | 10/18/ | MRI | | | 2014 | | + +--------+ + Encounter Details +--------+ + + + + | Date | Type | Department | Care Team | Description | +--------+ + + + + | 10/18/ | Telephone | [facility] | Ulysses Genao MD | Appointment (MRI) | | 2014 | | OTOLARYNGOLOGY [address] | [address] | | | | | [address] | [address] [place] | | | | | [place] | [place] [address] | | | | | [address] | [phone] | | | | | [phone] | | | +--------+ + + + [...] encounter Miscellaneous Notes Telephone Encounter - Louise Wright Master of Arts - 10/20/2014 10:45 AM PDTCalled and spoke to patient to let her know that her MRI has been approved and the orders have been sen t to [facility]. Patient already's has her follow up with . She is seeing Elisabet MCDONOUGH. Telephone Encounter - Reyna Kuo - 10/19/2014 4:02 PM PDTPatient called she states she got an ok from her insurance for the MRI and they told her they would contact our office to let us know this. Any questions please call patient back at [phone] sign ed by Reyna Kuo at 10/19/2014 4:09 PM PDTTelephone Encounter - Roz Morris - 015 4:55 PM PDTPatient called in asking if her appointment at [facility] has been made. Kevin rodriguez said she was expecting a call back today. Please give her a call and let her know. Electro nically signed by Roz Morris at 10/18/2014 4:56 PM PDTdocumented in this encounter Plan of [...] | | | | | [place] [address] | | | | | | [phone] | | | | | | | | +--------+---------+ + + + documented as of this encounter Visit Diagnoses Not on filedocumented in this encounter"
--- OUTSIDE RECORDS SUMMARY | ~2020-01-25 | XMS | Encounter Summary ---
Demographics + + + | Address | [address] | | | [place] [address] | + + + | Home Phone [...] | + + +---------+ + | Sree Welsl | ECON | Unknown | | + + +---------+ + | Marco Antonio Wells | ECON | Unknown | | + + +---------+ + Care Team Providers + +------+ + | Care Bacteriologist Industrial Name | Role | Phone | + [...] | | | | Clinical Nutrition | [place], [place] | | | | | [address] | [address] | | | | | Loop Mailcode: OPC5 | [phone] | | | | | Outpatient Clinic | | | | | | [facility] | | | | | | [place] [address] | | | | | | [phone] | | | +--------+ + + + [...] + + + | [facility] | [address] | [place] [address] | | | LABORATORY | | | [...] | uIU/ml | | | | | [facility] | | | | | | Laboratories. | | | | + + + + + + + + | Specimen | + + | | + + + + + + + | Performing | Address | City/State/Zipcode | Phone Number | | Organization | | | | + + + + + | [facility] | [address] | [place] [address] | | | LABORATORY | | | [...] DEPARTMENT OF | [address] | [place] [address] | | | PATHOLOGY | [address] | | | + + + + + | [place] DEPARTMENT OF | [address] | [place] [address] | | | PATHOLOGY | [address] | | | + + + + + documented in this encounter Visit Diagnoses Not on filedocumented in this encounter"
--- OUTSIDE RECORDS SUMMARY | ~2020-01-25 | XMS | Encounter Summary ---
Demographics + + + | Address | [address] | | | [place] [address] | + + + | Home Phone [...] Providers + +------+ + | Care Electronic Train Control Technician Name | Role | Phone | + +------+ + PCP | Unavailable | + +------+ + Encounter Details +--------+ + + + + | Date | Type | Department | Care Team | Description | +--------+ + + + + | 05/23/ | Procedure - | Neurophysiology | Report, Emg | Neurophysiology | | 2001 | | EMG at [facility] [address] | | | | | Transcribed | [address] | | | | | | [facility] | | | | | | [place], [facility] Floor | | | | | | [place], [place] | | | | | | [address] | | | | | | [phone] | | | +--------+ + + + [...]
--- OUTSIDE RECORDS SUMMARY | ~2020-01-25 | XMS | Encounter Summary ---
Demographics + + + | Address | [address] | | | [place] [address] | + + + | Home Phone [...] Team Providers + +------+ + | Care Ampoule Sealer Name | Role | Phone | [...] ANP | | | | | [facility] | | | | | | [address] | | | | | | Center for Health | | | | | | and Healing, | | | | | | | | | | | | Floor [place], [place] | | | | | | [address] | | | | | | [phone] | | | +--------+ + + + [...]
--- OUTSIDE RECORDS SUMMARY | ~2020-01-25 | XMS | Encounter Summary ---
Demographics + + + | Address | [address] | | | [place] [address] | + + + | Home Phone [...] Team Providers + +------+ + | Care Police Crime Scene Technician Name | Role | Phone | [...] | | | [facility] | [place], [place] | and counseling | | | | [address] | [address] | | | | | [address] | [phone] | | | | | Phys[facility] | | | | | | Physician's | | | | | | Pavilion [place], | | | | | | [place] [address] | | | | | | [phone] | | | +--------+ + + + [...]
--- OUTSIDE RECORDS SUMMARY | ~2020-01-25 | XMS | Encounter Summary ---
Demographics + + + | Address | [address] | | | [place] [address] | + + + | Home Phone [...] Providers + +------+ + | Care Car Scrubber Name | Role | Phone | + [...] Rd | | | | | | [place], [place] | | | | | | [address] | | | +--------+ + + + [...]
--- OUTSIDE RECORDS SUMMARY | ~2020-01-25 | XMS | Encounter Summary ---
Demographics + + + | Address | [address] | | | [place] [address] | + + + | Home Phone [...] Team Providers + +------+ + | Care Telesales Representative Name | Role | Phone | + +------+ + | Maria Esther Cintron MD | PCP | | + +------+ + Encounter Details +--------+ + + + + | Date | Type | Department | Care Team | Description | +--------+ + + + + | 02/16/ | Telephone | Dig[facility]ive [facility] | Chris Padgett, | | | 2007 | | [place] [address] | [address] [facility] | | | | | [place] Mailcode: CH4S | [address] | | | | | Center for Health | [place], [place] | | | | | and Healing, | [address] | | | | | Building , [address]th | [phone] | | | | | Floor [place], [place] | | | | | | [address] | | | | | | [phone] | | | +--------+ + + + [...]
--- OUTSIDE RECORDS SUMMARY | ~2020-01-25 | XMS | Encounter Summary ---
Demographics + + + | Address | [address] | | | [place] [address] | + + + | Home Phone [...] Team Providers + +------+ + | Care Maintenance Engineer Oil Field Name | Role | Phone | + +------+ + | Petrona Thapa | PCP | | | MD | | | + +------+ + Reason for Visit +---------+--------+ + | Reason | Onset | Comments | | | Date | | +---------+--------+ + | Results | 06/02/ | | | | 2017 | | +---------+--------+ + Encounter Details +--------+ + + + + | Date | Type | Department | Care Team | Description | +--------+ + + + + | 06/02/ | Telephone | [facility] | Alanis, | Results | | 2017 | | MEDICINE [address] | MD Petrona | | | | | [place], | [address] [facility] | | | | | [place] [address] | [place] [address] | | | | | [phone] | [phone] | | | | | | | [...] Telephone Encounter - Maggie Montoya LPN - 06/02/2018 4:35 PM PSTReport placed on MD desk for review. Patient notified of impression. Will call back after MD reviewsElectronically si gned by Maggie Montoya LPN at 06/02/2018 4:36 PM PSTTelephone Encounter - Ayla Quezada - 06/02/2018 1:48 PM PSTPatient called in to check the status of her MRI results. She sta sted she had her MRI done on 05/26/2018. Please advise [phone] signed by Ayla Quezada at 06/02/2018 1:52 PM PSTdocumented in this encounter Plan of [...] | | | | | [place] [address] | | | | | | [phone] | | | | | | | | +--------+---------+ + + + documented as of this encounter Visit Diagnoses Not on filedocumented in this encounter"
--- OUTSIDE RECORDS SUMMARY | ~2020-01-25 | XMS | Encounter Summary ---
Demographics + + + | Address | [address] | | | [place] [address] | + + + | Home Phone [...] Providers + +------+ + | Care Lead Java Programmer Name | Role | Phone | + +------+ + PCP | Unavailable | + +------+ + Encounter Details +--------+ + + + + | Date | Type | Department | Care Team | Description | +--------+ + + + + | 06/26/ | Results | | Dwaine Ceballos, | | | 2003 | Only | | [facility] | | | | | | [address] | | | | | | [place]ina Wink[place], | | | | | | [place] [address] | | | | | | [phone] | | +--------+ + + + + [...] + +--------+ + + + | X-RAY KNEE 1 VIEWS | Routin | 06/26/2003 | | Results for this | | BILATERAL | e | 11:35 AM | | procedure are in the | | | | PST | | results section. | + +--------+ + + + | X-RAY WRISTS | Routin | 06/26/2003 | | Results for this | | BILATERAL 1 VIEW | e | 11:25 AM | | procedure are in the | | | | PST | | results section. | + +--------+ + + + | X-RAY HAND 1 VIEWS | Routin | 06/26/2003 | | Results for this | | BILATERAL | e | 11:10 AM | | procedure are in the | | | | PST | | results section. | + +--------+ + + + documented in this encounter Results KNEE 1 VIEWS BILATERAL (06/26/2003 11:35 AM PST) + + + + + + | Component | Value | Ref Range | Performed | Pathologist | | | | | At | Signature | + + + + + + | KNEE 1 | Radiologist 1: MK, | | | | | VIEWS | Joanna CASTROSTUDY: Knee | | | | | BILATERAL | one view bilateral, | | | | | | including standing AP | | | | | | radiograph COMPARISON: | | | | | | NONE DISCUSSION: Right | | | | | | knee findings: The knee | | | | | | is somewhat oblique | | | | | | which limitsthis | | | | | | examination as the joint | | | | | | spaces are overlap. | | | | | | No fracture isnoted. | | | | | | Left knee findings: The | | | | | | knee is obliqued which | | | | | | limits thisexamination | | | | | | as the joint spaces are | | | | | | overlap. No fracture | | | | | | ispresent. IMPRESSION: | | | | | | 1. Limited examination | | | | | | due to patient | | | | | | positioning shows | | | | | | nodisplaced fracture. | | | | | | Recommend obtaining | | | | | | three views of each | | | | | | kneefor additional | | | | | | evaluation. | | | | + + + + + + + + | Specimen | + + | | + + + +---------+ + + | Performing | Address | City/State/Zipcode | Phone Number | | Organization | | | | + +---------+ + + | [facility] DEPARTMENT OF | | | | | RADIOLOGY | | | | + +---------+ + + WRISTS BILATERAL 1 VIEW (06/26/2003 11:25 AM PST) + + + + + + | Component | Value | Ref Range | Performed | Pathologist | | | | | At | Signature | + + + + + + | WRISTS | Radiologist 1: MK, | | | | | BILATERAL 1 | Joanna CASTROSTUDY: Wrist | | | | | VIEW | bilateral one view | | | | | | including PA views of | | | | | | each wrist COMPARISON: | | | | | | NONE DISCUSSION: Right | | | | | | wrist findings: There is | | | | | | no fracture. The | | | | | | joint spaces | | | | | | aremaintained. No soft | | | | | | tissue swelling is | | | | | | present. 3 mm of | | | | | | ulnarminus variance is | | | | | | noted. Left wrist | | | | | | findings: There is no | | | | | | fracture. The joint | | | | | | spaces aremaintained. | | | | | | No soft tissue | | | | | | swelling is present. 3 | | | | | | mm of ulnarminus | | | | | | variance is noted. | | | | | | IMPRESSION: 1. No | | | | | | fracture and no | | | | | | radiographic evidence of | | | | | | | | | | | | inflammatoryarthropathy. | | | | | | There is 3 mm of | | | | | | ulnar minus variance | | | | | | bilaterally. | | | | + + + + + + + + | Specimen | + + | | + + + +---------+ + + | Performing | Address | City/State/Zipcode | Phone Number | | Organization | | | | + +---------+ + + | [facility] DEPARTMENT OF | | | | | RADIOLOGY | | | | + +---------+ + + HAND 1 VIEWS BILATERAL (06/26/2003 11:10 AM PST) + + + + + + | Component | Value | Ref Range | Performed | Pathologist | | | | | At | Signature | + + + + + + | HAND 1 | Radiologist 1: MK, | | | | | VIEWS | Joanna CASTROSTUDY: Hand | | | | | BILATERAL | one view bilateral, | | | | | | including PA views of | | | | | | each hand. COMPARISON: | | | | | | NONE DISCUSSION: Right | | | | | | hand findings: There is | | | | | | no fracture. The joint | | | | | | spaces aremaintained. | | | | | | There is no soft | | | | | | tissue swelling. Left | | | | | | hand findings: There is | | | | | | no fracture. The joint | | | | | | spaces aremaintained. | | | | | | There is no soft | | | | | | tissue swelling. | | | | | | IMPRESSION: 1. Normal | | | | | | hands bilaterally | | | | | | without radiographic | | | | | | evidence ofinflammatory | | | | | | arthropathy. | | | | + + + + + + + + | Specimen | + + | | + + + +---------+ + + | Performing | Address | City/State/Zipcode | Phone Number | | Organization | | | | + +---------+ + + | [facility] DEPARTMENT OF | | | | | RADIOLOGY | | | | + +---------+ + + documented in this encounter Visit Diagnoses Not on filedocumented in this encounter"
--- OUTSIDE RECORDS SUMMARY | ~2020-01-25 | XMS | Encounter Summary ---
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 Diagnosis: Derby I: 1. (296.32) Major depressive disorder, recurrent, moderate. 2. (309.24) Adjustment disorder with anxiety. 3. 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 Derby II: Deferred Derby III: abdominal pain, migraine headache, low back pain. Derby IV: low finances Derby V: GAF 55-60 Plan: Return in 2 weeks. Check niece's visit, pacing, relaxation, activity, distraction. Contin ue cognitive/behavioral therapy. Total time spent with patient was approximately 45 minutes. LUKASZ CHARLES PHD [facility] [address] [facility], [address] [place] [address] documented in this encount er Plan of Treatment + + +--------+ + + | Name | Type | Priori | Associated Diagnoses | Order Schedule | | | | ty | | | + + +--------+ + + | DE PSYCHOTHERPY, | Procedures | Routin | Major Depressive | Ordered: 11/11/2006 | | OFFICE (45-50) | | e | Disorder, Recurrent | | | | | | Episode, Moderate | | | | | | ([facility]) Left Knee | | | [...]
--- OUTSIDE RECORDS SUMMARY | ~2020-01-25 | XMS | Encounter Summary ---
Demographics + + + | Address | [address] | | | [place] [address] | + + + | Home Phone [...] Team Providers + +------+ + | Care Premix Operator Concentrate Name | Role | Phone | + +------+ + | Pedrito Gutierrez MD | PCP | | + +------+ + Reason for Visit + + + | Reason | Comments | + + + | Lab Draw | | + + + Encounter Details +--------+ + + + + | Date | Type | Department | Care Team | Description | +--------+ + + + + | 07/25/ | Telephone | [facility] | Beto Meeks MD | Lab Draw | | 2008 | | [facility] | [address] | | | | | [facility] | [place], [place] | | | | | [address] | [address] | | | | | [address] | [phone] | | | | | [facility] | | | | | | Physician's | | | | | | Pavilion [place], | | | | | | [place] [address] | | | | | | [phone] | | | +--------+ + + + [...]
--- OUTSIDE RECORDS SUMMARY | ~2020-01-25 | XMS | Encounter Summary ---
Demographics + + + | Address | [address] | | | [place] [address] | + + + | Home Phone [...] Providers + +------+ + | Care Press Tender Name | Role | Phone | + +------+ + | ePdrito Gutierrez MD | PCP | | + [...] floor | | | | | | [place], [place] | | | | | | [address] | | | | | | [phone] | | | +--------+------+ + + + [...] [facility] | [address] [facility] | [place] [address] | | | PATHOLOGY | [address] | | | + + + + + | [facility] | [address] [facility] | [place] [address] | | | PATHOLOGY | [address] [...] Performed At | + + + | [id number] Estimated GFR > 60 mL/min/1.73 sq m if non- | [facility] | | [place] Citizen [id number] Estimated GFR > 60 mL/min/1.73 sq m if | DEPARTMENT OF | | [place] Citizen GFR is estimated using the MDRD equation [...] + + + | [facility] DEPARTMENT | [address] | [place] [address] | | | PATHOLOGY | [address] | | | + + + + + | [facility] | [address] | [place] [address] | | | PATHOLOGY | [address] [...] [facility] ([facility]) | | | [facility] [place] [address] [facility] | | | [place] [address] | | + + + + + + + + | Performing | Address | City/State/Zipcode | Phone Number | | Organization | | | | + + + + + | [facility] | [address] | [place] [address] | | | LABORATORY | | | [...] [facility] ([facility]) | | | [facility] [place] [address] | | | [place] [address] | | + + + + + + + + | Performing | Address | City/State/Zipcode | Phone Number | | Organization | | | | + + + + + | [facility] | [address] | [place] [address] | | | LABORATORY | | | | + + + + + documented in this encounter Visit Diagnoses + + | Diagnosis | + + | Hypothyroidism Unspecified hypothyroidism | + + | Edema | + + documented in this encounter"
--- OUTSIDE RECORDS SUMMARY | ~2020-01-25 | XMS | Encounter Summary ---
Demographics + + + | Address | [address] | | | [place] [address] | + + + | Home Phone [...] Team Providers + +------+ + | Care Costumer Assistant Name | Role | Phone | [...] [address] | | | | | | [place], [place] | | | | | | [address] | | | +--------+ + + + [...]
--- OUTSIDE RECORDS SUMMARY | ~2020-01-25 | XMS | Encounter Summary ---
Demographics + + + | Address | [address] | | | [place] [address] | + + + | Home Phone [...] Team Providers + +------+ + | Care Housekeeping Staff Name | Role | Phone | + [...] NE | | | | | | [address] | Leeroy Johnston | | | | | | [place], [place] | [facility] | | | | | | [address] | [address] | | | | | | | [place], [place] | | | | | | | [address] | | | | | | | Phone: | | | | | | | [phone] | | | | | | | Fax: | | | | | | | [phone] | +--------+--------+ + + + + Encounter Details +--------+---------+ + + + | Date | Type | Department | Care Team | Description | +--------+---------+ + + + | 06/23/ | Office | [facility] Comprehensive | Adrien Smith, | Fibromyalgia | | 2013 | Visit | Pain Center at | 1960 [facility] | syndrome 729.1 | | | | [facility] | [facility] [address] | (Primary Dx); LBP | | | | [address] | [place], [place] | (low back pain); | | | | [place] [facility] | [address] | Chronic Bilateral | | | | and Healing, | [phone] | Shoulder Pain; Post | | | | | | laminectomy | | | | Floor [place], [place] | | syndrome; Chronic | | | | [address] | | migraine | | | | [phone] | | | +--------+---------+ + + + [...] evaluation of a patient with fibromyalgia, the [facility] Fibromyalgia clinic suggests laboratory screening to [...] therapy in the management of fibromyalgia (C arvshan SF et al. Karen Rheum Dis 2008;67:536 541). Recent data suggests that fibromyalgia patients may have reduced FLORAL SPECIALIST opioid receptors (Reji is RE, et al. Decreased central mu-opioid receptor availability in fibromyalgia. J Neurosci . 27(37):24683-0, 2006Feb 24.) and there are no controlled [...] documented in our notes. ADRIEN SMITH MD Warehouse Shipping Receiving Clerk, [facility] Edging Machine Feeder, Pain Medicine Professor, Anesthesiology & Perioperative Medicine Brandon Phipps Md - 06/23/2013 2:[address] [facility] Return Visit with Dr. Adrien Smith 06/23/2013 Belindavera Meehan; ; : 1960 Chief Complaint Patient [...] as she has worked with him be [facility]. This visit can be in tandem with [...] steroid injections, which she has had in th e past before her lumbar surgeries and recently in [place]. She has short-term relief from thes e treatments. I would like her to return to see Dr. Adrien Smith to discuss these treatment options. Consult to [facility] physical therapy: A supervised physical therapy [...] has been treated at the [facility] for back pain with the following [...] Overview Note: Surgery 05/15/08 Dr Ricky Garnett [place] JEY karlos to get operative reports Osteopenia [...] and a pain drawing which I reviewed. [facility] Brief Pain Inventory: (ten= worst possible pain or complete interference) Right Now: 9 (06/23/13 1317) Least in 24 hours: 7 (06/23/13 1317) Worst in 24 hours: 10 (06/23/13 1317) Average: 8 (06/23/131316) % Relief (med/treat): 0 [...] right knee Lumbar fusion 05/2008, ' & L5-X4xfjyse with bone spur removals Appendectomy Cholecystectomy section Hysterectomy Gastric bypass Mayra Lorin wt 278 01/18 Paniculectomy Elbow surgery Family [...] Hives Mainly in the legs Clindamycin Codeine Icqhqat-Sdwrzbesux-Nle-Caff Balance problems Fioricet W/Codeine (Mnviwqmkan-Gmifbbondi-Iie-Cod) Keflex (Cephalexin) Morphine IM ( only in [facility]) made gut pain worse 08/27/06: Trial of oral MSIR caused leg swelling Penicillins Sulfa (Sulfonamide Antibiotics) Tramadol Ms. Meehan reports no side effects. The Review of Systems provided by Ms. Meehan and documented by the [facility] was reviewed. Austyn tional comments: 1. [...] evaluation of a patient with fibromyalgia, the [facility] Fibromyalgia clinic suggests laboratory screening to i nclude: vitamin B6, B12, Sedimentation Rate (ESR), Insulin Like Growth Factor-1 (IGF-1). W e think it is worth checking these if they have not been checked recently, other labs have b een checked, we reviewed them today. The mainstay [...] suggests that fibromyalgia patients may have reduced FLORAL SPECIALIST opioid receptors (Xavi FRANK, et al. Decreased central mu-opioid receptor availability in fib romyalgia. J Neurosci. 27(37):77072-3, 2006Feb 24.) and there are no controlled [...] every 3 - 7 days. Belinda Molly Meehan was provi ded written instructions, we had a detailed PARQ discussion regarding this medication and it s side effects, and she was instructed to call with any problems. 4. Follow-up PRN as needed with Rosi COCHRAN MD,PhD [facility] svaldo, Maris Lopez MA - 06/23/2013 1:18 PM PSTCMA History: [...]
--- OUTSIDE RECORDS SUMMARY | ~2020-01-25 | XMS | Encounter Summary ---
Demographics + + + | Address | [address] | | | [place] [address] | + + + | Home Phone [...]
--- OUTSIDE RECORDS SUMMARY | ~2020-01-25 | XMS | Encounter Summary ---
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 Diagnosis: Pledger I: 1. (296.32) Major depressive disorder, recurrent, moderate. 2. (309.24) Adjustment disorder with anxiety. 3. (307.89) Chronic pain disorder associated with both psychological factors and a gene ral medical condition. Pledger II: Deferred Pledger III: abdominal pain, migraine headache, low back pain. Pledger IV: low finances Pledger V: GAF 50 Plan: Return in 2 weeks. Check preparation for niece's visit, [employer], pacing, relaxation, ac tivity, distraction. Check managing Pain... book. Continue cognitive/behavioral therapy. Total time spent with patient was approximately 45 minutes. LUKASZ CHARLES PHD [facility] [address] [facility], [address] [place] [address] documented in this encount er Plan of Treatment + + +--------+ + + | Name | Type | Priori | Associated Diagnoses | Order Schedule | | | | ty | | | + + +--------+ + + | [facility] PSYCHOTHERPY, | Procedures | Routin | Major [...]
--- OUTSIDE RECORDS SUMMARY | ~2020-01-25 | XMS | Encounter Summary ---
Demographics + + + | Address | [address] | | | [place] [address] | + + + | Home Phone [...] Team Providers + +------+ + | Care Supervisor/Port Director Name | Role | Phone | + +------+ + | Pedrito Gutierrez MD | PCP | | + +------+ + Reason for Visit + + + | Reason | Comments | + + + | Prescription renewal | | + + + Encounter Details +--------+ + + + + | Date | Type | Department | Care Team | Description | +--------+ + + + + | 03/26/ | Telephone | Orthopaedics at | RomainHai, | Prescription renewal | | 2008 | | [facility] [address] | MD | | | | | [address] | | | | | | Mailcode: [id number] | | | | | | [facility] | | | | | | [place], [place] | | | | | | [address] | | | | | | [phone] | | | +--------+ + + + [...]
--- OUTSIDE RECORDS SUMMARY | ~2020-01-25 | XMS | Encounter Summary ---
Demographics + + + | Address | [address] | | | [place] [address] | + + + | Home Phone [...] Providers + +------+ + | Care Media Senior Recruiter Name | Role | Phone | [...] + + | 07/24/ | Office | [facility] Comprehensive | Delfina Lambert, | Chronic Bilateral | | 2008 | Visit | Pain Center at | ANP | Shoulder Pain | | | | [facility] | | (Primary Dx); Spinal | | | | [address] | | Fusion Lumbar spine | | | | [place] [facility] | | ; LBP (Low Back | | | | and Healing, | | Pain); Osteopenia; | | | | Building | | Fibromyalgia | | | | Floor [place], [place] | | syndrome 729.1; | | | | [address] | | Major Depressive | | | | [phone] | | Disorder, Recurrent | | | | | | Episode, Moderate | | | | | | ([facility]); Adjustment | | | | | [...] Belinda Meehan is a 48 y.o. female [facility] Center Return Visit Chief [...] drawing has be completed, which I reviewed. PROGRESSIVE CARE MANAGER Brief Pain Inventory: (ten= worst possible pain [...] 300 mg) by oral route once daily qmkercekly-uetvwxboinbeq-weretitp (FIORICET) 50-325-40 mg Oral Tablet take 2 [...] 278 01/18 Paniculectomy Hx lumbar fusion 05/2008 L1-I5slvhkg with bone spur removals Family History Problem [...] (Current) Use of Opioids 724.79C Coccydynia Belinda Simons has seen improvement in her lower back [...] plain x rays of bilateral shoulders, today [facility] building third floor, I reviewed the [...] Continue with PT - Local group. [facility] Mail code CH 4P [place] [facility] [address] [place] [address] Ailyn Bello - 02/2009 3:13 PM [...] LANDA | | | | | | SAMMOSTATUS PENDING | | | | | | [...] | | + +---------+ + + | [facility] DEPARTMENT OF | | | | | [...]
--- OUTSIDE RECORDS SUMMARY | ~2020-01-25 | XMS | Encounter Summary ---
Demographics + + + | Address | [address] | | | [place] [address] | + + + | Home Phone [...] Providers + +------+ + | Care Nuclear Medical Technologist Name | Role | Phone | [...] | | | Ave Mailcode: CH4S | [facility] | | | | | [facility] | [place], [place] | | | | | and Healing, | [address] | | | | | [facility] | [phone] | | | | | Floor [place], [place] | | | | | | [address] | | | | | | [phone] | | | +--------+ + + + [...]
--- OUTSIDE RECORDS SUMMARY | ~2020-01-25 | XMS | Encounter Summary ---
Demographics + + + | Address | [address] | | | [place] [address] | + + + | Home Phone [...] Team Providers + +------+ + | Care District Director Name | Role | Phone | + +------+ + PCP | Unavailable | + +------+ + Encounter Details +--------+ + + + + | Date | Type | Department | Care Team | Description | +--------+ + + + + | 11/22/ | Results | | Other, Faculty | | | 2004 | Only | | [phone] | | +--------+ + + + + [...] + | Ordered by SYEDA MCKENZIE | [facility] | | | DEPARTMENT OF | | | PATHOLOGY | + + + + + + + + | Performing | Address | City/State/Zipcode | Phone Number | | Organization | | | | + + + + + | [facility] DEPARTMENT OF | [address] [facility] [address] | [place] [address] | | | PATHOLOGY | [address] | | | + + + + + | [place] DEPARTMENT OF | [address] | [place] [address] | | | PATHOLOGY | [address] [...] | + + + + + | [facility] DEPARTMENT | [address] [facility] [address] | [place] [address] | | | PATHOLOGY | [address] | | | + + + + + | [facility] | [address] | [place] [address] | | | PATHOLOGY | [address] [...] | + + + + + | [facility] | [address] | [place] [address] | | | PATHOLOGY | [address] | | | + + + + + | [facility] | [address] | [place] [address] | | | PATHOLOGY | [address] [...] DEPARTMENT OF | [address] | [place] [address] | | | PATHOLOGY | [address] | | | + + + + + | [facility] DEPARTMENT OF | [address] | [place] [address] | | | PATHOLOGY | [address] [...] DEPARTMENT OF | [address] | [place] [address] | | | PATHOLOGY | [address] | | | + + + + + | [facility] DEPARTMENT OF | [address] | [place] [address] | | | PATHOLOGY | [address] [...] | + + + + + | [facility] DEPARTMENT | [address] | [place] [address] | | | PATHOLOGY | [address] | | | + + + + + | [facility] DEPARTMENT OF | [address] | [place] [address] | | | PATHOLOGY | [address] | | | + + + + + documented in this encounter Visit Diagnoses Not on filedocumented in this encounter"
--- OUTSIDE RECORDS SUMMARY | ~2020-01-25 | XMS | Encounter Summary ---
Demographics + + + | Address | [address] | | | [place] [address] | + + + | Home Phone [...] Providers + +------+ + | Care Project Production Engineer Name | Role | Phone [...] | | unspecified | [place], [place] | [address] | | | | | laterality | [address] | Phone: | | | | | | Phone: | [phone] | | | | | | [phone] | Fax: | | | | | | Fax: | [phone] | | | | | | [phone] | | +--------+ + + + + + Encounter Details +--------+ + + + + | Date | Type | Department | Care Team | Description | +--------+ + + + + | 12/22/ | Orders Only | [facility] | Ulysses Genao MD | Benign paroxysmal | | 2019 | | OTOLARYNGOLOGY [address] | [address] | positional vertigo, | | | | [address] | [address] [place] | unspecified | | | | [place], [place] | [place] [address] | laterality (Primary | | | | [address] | [phone] | Dx) | | | | [phone] | | | +--------+ + + + [...] | | | | | [address] | | | | | | [place] [address] | | | | | | [phone] | | | | | | | | +--------+---------+ + + + + + +--------+ + + | Name | Type | Priori | Associated Diagnoses | Order Schedule | | | | ty | | | + + +--------+ + + | * [facility] | Outpatient | Routin | Benign paroxysmal [...]
--- OUTSIDE RECORDS SUMMARY | ~2020-01-25 | XMS | Encounter Summary ---
Demographics + + + | Address | [address] | | | [place] [address] | + + + | Home Phone [...] Providers + +------+ + | Care Dry Sand Molder Name | Role | Phone | [...] 05/29/ | Office | [facility] | Lukasz Charles, | Major Depressive | | 2005 | Visit | [address] | PhD [address] | Disorder, Recurrent | | | | Center [facility] | [facility] [place] | Episode, Moderate | | | | and Healing, | [address] | ([facility]); Chronic | | | | Building | [phone] | Abdominal Pain; | | | | Floor [place], [place] | | Cervical Pain; | | | | [address] | | Headache; Adjustment | | | | [phone] | | Disorder with | | | [...] Notes Lukasz Charles - 05/29/2006 6:15 PM [facility] Psychological Wendy luation IDENTIFYING INFORMATION: Belinda Meehan is a 46 y.o. female Date of : 1960 Consulting Physician: LUKASZ CHARLES PHD Consultation Date: 05/29/2006 Referring Provider: Carlos Arreola Identifying Information: Belinda Meehan is a 46 y.o. female who lives in [facility] her 2 sons. The patient was [...] disability benefits. 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 Marital History: , not currently in a [...] and decreasing depression and anx iety. Diagnosis: [place] I: 1. (296.32) Major depressive disorder, recurrent, moderate. 2. (309.24) Adjustment disorder with anxiety. 3. (307.89) Chronic pain disorder associated with both psychological factors and a gene ral medical condition. [place] II: Deferred [place] III: abdominal pain, migraine headache, low back pain. [place] IV: low finances [place] V: GAF 50 Recommendations: 1. Psychological counseling to increase knowledge and use of cognitive and behavioral pain coping skills is recommended. The treatment should include relaxation training to improve c ontrol over physiologic responses to pain. Treatment should also focus on decreasing sympto ms of depression and increasing participation in social, recreational and leisure activities . Ms. 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 LUKASZ CHARLES PHD [facility], [address]th [place] [address] documented in this encount er Plan of Treatment + + +--------+ + + | Name | Type | Priori | Associated Diagnoses | Order Schedule | | | | ty | | | + + +--------+ + + | [facility] | Procedures | Routin | Major [...]
--- OUTSIDE RECORDS SUMMARY | ~2020-01-25 | XMS | Encounter Summary ---
Demographics + + + | Address | [address] | | | [place] [address] | + + + | Home Phone [...] Team Providers + +------+ + | Care Homogenizer Operator Name | Role | Phone | [...] Description | +--------+--------+ + + + | 04/02/ | Refill | Kraig Turner | Beto Meeks MD | Refill Request | | 2008 | | [facility] | [address] | | | | | [facility] | [place], [place] | | | | | [address] | [address] | | | | | [address] | [phone] | | | | | Physician's | | | | | | Pavilion, 1st floor | | | | | | [place], [place] | | | | | | [address] | | | | | | [phone] | | | +--------+--------+ + + + [...]
--- OUTSIDE RECORDS SUMMARY | ~2020-01-25 | XMS | Encounter Summary ---
Demographics + + + | Address | [address] | | | [place] [address] | + + + | Home Phone [...] Team Providers + +------+ + | Care Clean Out Driller Helper Name | Role | Phone | + +------+ + | Petrona Thapa | PCP | | | MD | | | + +------+ + Reason for Visit + +--------+ + | Reason | Onset | Comments | | | Date | | + +--------+ + | Cold-like Symptoms | 08/19/ | | | | 2018 | | + +--------+ + Encounter Details +--------+ + + + + | Date | Type | Department | Care Team | Description | +--------+ + + + + | 08/19/ | Telephone | [facility] | Alanis, | Cold-like Symptoms | | 2018 | | MEDICINE [address] | MD Petrona | | | | | [place], | [address] | | | | | [place] [address] | [place] [address] | | | | | [phone] | [phone] | | | | | | | [...] Telephone Encounter - Maggie Montoya LPN - 08/19/2018 3:34 PM PSTPatient made aware that John Gerber is out of the office now until Thursday. Advised that if having any worsening symptoms to se ek medical attention if any fever or shortness of breath. Patient understands and acceptsEle ctronically signed by Maggie Montoya LPN at 08/19/2018 3:56 PM PSTTelephone Encounter - Bob Solomon - 08/19/2018 2:50 PM PSTPatient called states she she believes she has a the sinus infection states she has been feeling very sick she's been coughing Greenish fla m. Patient is requesting a return phone call for advise from nurse. Please call [phone] . documented in this encounter Plan of [...] | | | | | [place] [address] | | | | | | [phone] | | | | | | | | +--------+---------+ + + + documented as of this encounter Visit Diagnoses Not on filedocumented in this encounter"
--- OUTSIDE RECORDS SUMMARY | ~2020-01-25 | XMS | Encounter Summary ---
Demographics + + + | Address | [address] | | | [place] [address] | + + + | Home Phone [...] Team Providers + +------+ + | Care Multimedia Editor Name | Role | Phone | [...] | | | | | | [address], [place] | | | | | | [address] | | | | | | [phone] | | | +--------+ + + + [...]
--- OUTSIDE RECORDS SUMMARY | ~2020-01-25 | XMS | Encounter Summary ---
Demographics + + + | Address | [address] | | | [place] [address] | + + + | Home Phone [...] Team Providers + +------+ + | Care Extraction Supervisor Name | Role | Phone | + +------+ + PCP | Unavailable | + +------+ + Encounter Details +--------+ + + + + | Date | Type | Department | Care Team | Description | +--------+ + + + + | 11/01/ | Office | | Note, Outpatient | Progress Note | | 2003 | Visit-Trans | | Clinic | | [...] as of this encounter Progress Notes Interface, Large Engine Assembler In - 01/03/2006 3:02 AM PDTCLINIC DATE: 11/01/2002 NEUROMUSCULAR CLINIC PRIMARY CARE PROVIDER: Pedrito Gutierrez M.D. OTHER PHYSICIAN: Issac Meeks M.D., [facility] Endocrinology. PROBLEM LIST 1. Fibromyalgia and chronic fatigue syndrome. 2. Previous suspicion of metabolic myopathy, appears to have been erroneous. 3. Morbid obesity. 4. Multiple maternal relatives with "fibromyalgia." 5. Hypercholesterolemia. 6. Hypertension. 7. History of glucose intolerance. 8. Obstructive sleep apnea on continuous positive airway pressure. 9. Possible history of heart attack. 10. Gastroesophageal reflux disease. 11. History of depression and anxiety. 12. History of secondary hyperparathyroidism. 13. Active cigarette smoker. 14. Migraines. 15. 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 16. Bilateral carpal tunnel syndrome, status post recent surgical release. SUBJECTIVE: The patient is a 42-year-old woman whom we saw in this clinic last May. She had a history of diffuse muscle pain that was always present but particularly severe in a rather episodic manner. She had had a random CPK that was elevated at 779 and then had had a repeat that was actually in the low normal range of 85. The possibility of a metabolic myopathy was considered particularly as she has multiple maternal family members who have been diagnosed with fibromyalgia. We suggested that she have her CK checked any time she developed these intense muscle pains. This has unfortunately happened many times since I saw her last, and she has had her CPK checked on at least 8 occasions since I saw her last, and it has been normal on all occasions ranging at levels between 98 and 124. She continues to complain of severe diffuse muscle achiness and generalized fatigue. She reportedly has begun walking with [place] crutches much of the time due to poor exercise tolerance. She only recently started her physical therapy regimen, having had her first session yesterday. She reports that she did fairly well, although she feels quite sore today. She is planning on doing a regular aggressive physical therapy regimen over the next few months. She has no other complaints at this time. She is apparently being considered for bariatric surgery for her obesity. The patient recently underwent bilateral carpal tunnel releases with excellent results. MEDICATIONS: Inderal, Flexeril, Axid, triamterene, hydrochlorothiazide, Darvocet, Phenergan, mephentermine, aspirin, multivitamin, and calcium. ALLERGIES: SULFA, CLINDAMYCIN, LATEX, PENICILLIN, CODEINE, AND KEFLEX. PHYSICAL EXAMINATION VITAL SIGNS: Weight 315 pounds, blood pressure 120/82, pulse 60, and respiration 16. GENERAL: The patient is a morbidly obese female who looks quite a bit older than her stated age of 42. She is awake, alert, oriented, and in no acute distress. She does however appear quite depressed with a flat affect and melancholic mood throughout the interview. CARDIAC: Regular. LUNGS: Clear with good air movement. BRIEF NEUROLOGIC: Fluent and articulate speech with intact orientation, concentration, and memory. Her cranial nerves are individually tested and appear to be intact and symmetric bilaterally. On motor testing, she has normal muscle bulk and tone throughout. All fibromyalgia pressure points are positive and control points are negative. Her muscle strength is 5/5 and symmetric proximally and distally throughout, although she has a very prominent giveaway weakness in all muscle groups. Her deep tendon reflexes are 1 out of 4, symmetric at the biceps, triceps, brachioradialis, patella, and Achilles. Her sensory examination is intact to primary modalities throughout. Abbreviated coordination and gait testing appear normal, although quite painful. IMPRESSION 1. Fibromyalgia and chronic fatigue syndrome. 2. Clinical and paraclinical data at this time suggest that she does not have an underlying disorder of skeletal muscle, metabolic or otherwise. 3. Bilateral carpal tunnel release, successful. 4. Untreated depression. 5. Multiple other factors contributing to her poor exercise tolerance and fatigue including her active cigarette smoking, her obesity, and so forth. PLAN 1. No further neurologic evaluation appears wanted from our standpoint at this time. 2. I agree with aggressive physical therapy regimen with concentration on strength and endurance training. 3. Other potential interventions that can be of benefit in this condition are judicious use of nonsteroidal anti-inflammatory medications and treatment of underlying depression when present. I will defer to Dr. Gutierrez's expertise regarding whether he believes the patient is a candidate for either of these interventions. 4. I agree strenuously with the patient's efforts to quit smoking and to lose weight. I agree that if the patient is an appropriate candidate for bariatric surgery, that that would be a good idea. 5. No further followup in this clinic will be scheduled, and we will be happy to see her back if we can ever be of any further assistance in her care. Irving Pete M.D. Neurology/Neuromuscular Fellow TBD / [id number] / [id number] / [id number] / [id number] C: 11/10/2002 BRAD cc: Issac Meeks M.D. [facility] Endocrinology Pedrito Gutierrez M.D. [address] [place], [place] [id number] signed by Interface, Large Engine Assembler In at 01/03/2006 3:0 2 AM PDTdocumented in this encounter Plan of Treatment Not on filedocumented as of this encounter Visit Diagnoses Not on filedocumented in this encounter
--- OUTSIDE RECORDS SUMMARY | ~2020-01-25 | XMS | Encounter Summary ---
Demographics + + + | Address | [address] | | | [place] [address] | + + + | Home Phone [...] Providers + +------+ + | Care Sales And Customer Relations Rep Name | Role | Phone | + [...] [id number] | | | | | | [place], [place] | | | | | | [address] | | | | | | [phone] | | | +--------+--------+ + + + [...]
--- OUTSIDE RECORDS SUMMARY | ~2020-01-25 | XMS | Encounter Summary ---
Demographics + + + | Address | [address] | | | [place] [address] | + + + | Home Phone [...] Team Providers + +------+ + | Care Therapy Tech Name | Role | Phone | + +------+ + | Pedrito Gutierrez MD | PCP | | + +------+ + Encounter Details +--------+ + + + + | Date | Type | Department | Care Team | Description | +--------+ + + + + | 03/26/ | Telephone | [facility] Division of | Carlos Arreola, | | | 2005 | | Gastroenterology/Hep | [address] | | | | | atology [address] | | | | | [address] | [place] [address] | | | | | Mailcode: PV310 | [phone] | | | | | Physician's [address]arm[address] | | | | | | [address] | | | | | | [place], [place] | | | | | | [address] | | | | | | [phone] | | | +--------+ + + + [...]
--- OUTSIDE RECORDS SUMMARY | ~2020-01-25 | XMS | Encounter Summary ---
Demographics + + + | Address | [address] | | | [place] [address] | + + + | Home Phone [...] Team Providers + +------+ + | Care Sba Underwriter Name | Role | Phone | + [...] | 09/04/ | Refill | [facility] | Alanis, | Medication Refill | | 2018 | | MEDICINE [address] | MD Petrona | | | | | [place], | [address] [facility] | | | | | [place] [address] | [place] [address] | | | | | [phone] | [phone] | | | | | | | [...] Telephone Encounter - Maggie Montoya LPN - 09/07/2018 1:04 PM PDTLast appt: 06/17/18 Next appt: 09/15/18 docum ented [...] | | | | | [place] [address] | | | | | | [phone] | | | | | | | | +--------+---------+ + + + documented as of this encounter Visit Diagnoses Not on filedocumented in this encounter"
--- OUTSIDE RECORDS SUMMARY | ~2020-01-25 | XMS | Encounter Summary ---
Demographics + + + | Address | [address] | | | [place] [address] | + + + | Home Phone [...] Team Providers + +------+ + | Care Microwave Oven Assembler Name | Role | Phone | [...] as of this encounter Progress Notes Interface, Feather Curling Machine Operator In - 11/05/2005 2:06 AM PDT [id number] GEOVANNI Barnes [id number] Clinic Date: 10/20/2005 Clinic: Bariatric Surgery Clinic Subjective: Ms. Meehan returns today for continued evaluation of her abdominal pain. She has had a gastric bypass followed by a panniculectomy approximately 1 year ago. She has had diffuse sharp and crampy abdominal pain which lasts up to 45 minutes. She says "it takes her breath away." She went to the emergency room at [facility] last night and got some IV pain [...] . Wali Valentine M.D. CONNOR / SHARIF [id number] / [id number] / [id number] / [id number] Electronically signed by Luther Valentine 11-04-2005 11:36:40 AM documented i n this encounter Plan of Treatment Not on filedocumented as of this encounter Visit Diagnoses Not on filedocumented in this encounter
--- OUTSIDE RECORDS SUMMARY | ~2020-01-25 | XMS | Encounter Summary ---
Demographics + + + | Address | [address] | | | [place] [address] | + + + | Home Phone [...] Team Providers + +------+ + | Care Purchasing Associate Name | Role | Phone | [...] as of this encounter Progress Notes Interface, Member Of The Legislative Assembly In - 01/12/2005 6:32 AM PDTClinic Date: [...] since she started a supplement by Sheyla Blackburn. She has had a huge decrease in [...] as the right and left upper gluteus edwarod muscles. Assessment and Plan 1. We went [...] improves, and the leg discomfort is actually area representative of restless legs. I have given [...] 4 months. Caitlin Rivera M.S., F.N.P. / [id number] / [id number] / [id number] / [id number] cc: Pedrito Gutierrez M.D. [address], [place] [id number] signed by Interface, Member Of The Legislative Assembly In at 01/12/2005 6:3 2 AM PDTdocumented in this encounter Plan of Treatment Not on filedocumented as of this encounter Visit Diagnoses Not on filedocumented in this encounter"
--- OUTSIDE RECORDS SUMMARY | ~2020-01-25 | XMS | Encounter Summary ---
Demographics + + + | Address | [address] | | | [place] [address] | + + + | Home Phone | | + + + | Preferred Language | Unknown | + + + | Marital Status | | + + + | Scientology Affiliation | [id number] | + + + | Race | Unknown | + + + | Ethnic Group | Unknown | + + + Author + + + | Author | [facility] | | | and [place] | + + + | Organization | [facility] | | [...] Team Providers + +------+ + | Care Euclid Operator Name | Role | Phone | [...] + + | 02/15/ | Office | [facility] | Alanis, | Antibiotic-associate | | 2019 | Visit | MEDICINE [address] | MD John | d diarrhea (Primary | | | | [place], | [address] [place] | Dx); 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 Patient tolerated injections well documented in this enc ounter Miscellaneous Notes Addendum Note - John Thapa MD - 02/15/2019 9:30 AM PDT Addended by: JOHN HOPKINS on: 02/15/2019 16:19 Modules accepted: Orders dojannet barrera in this encounter Plan of Treatment +--------+---------+ + + + | Date | Type | Specialty | Care Team | Description | +--------+---------+ + + + | 02/15/ | Office | Internal Medicine | Alanis, | | | 2019 | Visit | | MD John | | | | | | [address] [place] [address] [place] | | | | | | [place] [address] | | | | | | [phone] | | | | | | | [...] 97 | 60 - 106 mg/dL | [facility] | | | | | | [facility] | | | | | | [facility] | | | | | | CENTER - | | | | | | LABORATORY | | + + + + + + | BUN | 10 | 9 - 23 mg/dL | [facility] | | | | [facility] | | | | | [facility] | | | | | | C[facility] - | | | | | | LABORATORY | | + + + + + + | Creatinine | 0.87 | 0.55 - 1.02 | [facility] | [...] | mL/min/1.73m2 | [facility] | | | [place]ian | RATE,ESTIMATED | | MEDICAL | | | | mL/min/1.13w1Kqwh than | | CENTER - | | [...] + | [facility] | [address] | [place] | [phone] | | [facility] | | [address] | | | - LABORATORY | | | | + + + + + Lipid Panel (02/15/2019 10:48 AM PDT) + +-------+ + + + | Component | Value | Ref Range | Performed | Pathologist | | | | | At | Signature | + +-------+ + + + | Triglycerid | 103 | <=150 mg/dL | [facility] | | | es | | | [facility] | | | | | | MEDICAL | | | | | | CENTER - | | | | | | LABORATORY | | + +-------+ + + + | Cholesterol | 145 | <=200 mg/dL | [facility] | | | | [...] | | Ratio | | | [facility] | | | | | | MEDICAL | | | | | | CENTER - | | | | | | LABORATORY | | + +-------+ + + + | LDL, | 74 | <=130 mg/dL | [facility] | | | Calculated | | | [...] | + + + + + | [facility] | [address] | [place], [place] | [phone] | | [facility] | | [address] | | | - LABORATORY | | | | + + + + + documented in this encounter Visit Diagnoses + + | Diagnosis | + + | Antibiotic-associated diarrhea - Primary Diarrhea | + + | halfway prescription opiate use | + + | [...] | | | | First dose on [facility] 10/15/17 at 1215 | | | [...]
--- OUTSIDE RECORDS SUMMARY | ~2020-01-25 | XMS | Encounter Summary ---
Demographics + + + | Address | [address] | | | [place] [address] | + + + | Home Phone [...] Team Providers + +------+ + | Care Relay Dispatcher Name | Role | Phone | [...] | | | | | | Mailcode: [facility] | | | | | | | [facility] Center | | | | | | | for Health | | | | | | | and Healing, | | | | | | | [address] | | | | | | | [facility] [place] | | | | | | | [address] | | | | | | | Phone: | | | | | | | [phone] | | | | | | | Fax: | | | | | | | [phone] | +--------+--------+ + + + + Encounter Details +--------+ + + + + | Date | Type | Department | Care Team | Description | +--------+ + + + + | 09/14/ | Hospital | [facility] PROCEDURE | Olivia, | | | 2008 | Encounter | [address] | MD Pedrito | | | | | Bethanie Mailcode: [facility] | | | | | | [facility] | | | | | | Health and Healing, | | | | | | [address] | | | | | | [facility] [place] | | | | | | [address] | | | | | | [phone] | | | +--------+ + + + [...] Discharge Instructions Instructions Marleen Hogan - 09/14/2008 [facility] Endoscopy [address] [place] [address] Toll Free ext: [phone] Home Care Instructions after EGD (Upper Endoscopy) [...] hours, or on weekends and holidays Hospital Utility Locator and have the GI doctor repairer controller tester paged. The provider who performed your procedure [...] Meehan is a 48 y.o. female MR# [id number] presents today for an EG D to [...] 01/22/2006 Tramadol 01/22/2006 Morphine Clarithromycin Hives 06/28/2007 [id number] 08/28/2008 See procedure note 09/14/2008 documented in [...]
--- OUTSIDE RECORDS SUMMARY | ~2020-01-25 | XMS | Encounter Summary ---
Demographics + + + | Address | [address] | | | [place] [address] | + + + | Home Phone [...] Team Providers + +------+ + | Care Furniture Mover Helper Name | Role | Phone | [...] Description | +--------+---------+ + + + | 03/21/ | Office | [facility] | Emmy-Kamlesh, | Migraine without | | 2019 | Visit | MEDICINE [address] | MD Petrona | aura and without | | | | [address] [place], | [address] [facility] | status migrainosus, | | | | [place] [address] | [place] [address] | not intractable | | | | [phone] | [phone] | (Primary Dx); | | | | | | Rotator cuff tear | | | | | | arthropathy of right | | | | | | shoulder; | | | | | | Situational | | | | | | depression; Primary | | | | | | insomnia | +--------+---------+ + + + Social History [...] + + + | Blood Pressure | 100/68 | 03/21/2019 9:33 AM | | | | | PDT | | + + + + + | Pulse | 57 | 03/21/2019 9:33 AM | | | | | PDT | | + + + + + | Temperature | 36.5 C (97.7 F) | 03/21/2019 9:33 AM | | | | | PDT | | + + + + + | Respiratory Rate | 16 | 03/21/2019 9:33 AM | | | | | PDT | | + + + + + | Oxygen Saturation | 97% | 03/21/2019 9:33 AM | | | | | PDT | | + + + + + | Inhaled Oxygen | - | - | | | Concentration | | | | + + + + + | Weight | 93.2 kg (205 lb 7.5 | 03/21/2019 9:33 AM | | | | oz) | PDT | | + + + + + | Height | - | - | | + + + + + | Body Mass Index | 31.24 | 01/17/2019 9:53 AM | | | | | PDT | | + + + + + documented in this encounter Progress Notes Petrona Thapa MD - 03/21/2019 9:30 AM PDTFormatting of this note might be d ifferent from the original. CHIEF COMPLAINT Chief Complaint Patient presents with Lab Results HPI Belinda Meehan is a 59 y.o. y/o female who presents today for several issues: She is complaining of difficulty sleeping and feeling depressed after a close friend recent ly unexpectedly. Would like to try something to help her sleep at night. She i s not suicidal. She also has history of migraines and takes sumatriptan and topiramate. She states the sum atriptan is not effective anymore. She has 2 or 3 episodes of migraine a week sometimes mor e. Blood pressure is okay. She also has history of rotator cuff tear in her right shoulder diagnosed on an MRI about a year ago. She tried a shoulder injection and physical therapy but did not find them helpfu l. She is working with an orthopedist in [facility], and she anticipates that she will hav e surgery with them soon. No chest pain or palpitations or shortness of breath. ASSESSMENT & PLAN 1. Migraine without aura and without status migrainosus, not intractable -Increased dose of sUMAtriptan (IMITREX) 100 mg tablet; Take 1 tablet by mouth as needed fo r Migraine. Take 1 tab by mouth on on-set of Migraine, may repeat in 2 hours if needed. Max 2 tabs/ 24 hours Dispense: 12 tablet; Refill: 5 2. Rotator cuff tear arthropathy of right shoulder -Follow-up with orthopedist as above. 3. Situational depression -Start traZODone (DESYREL) 50 mg tablet; Take 1 tablet by mouth nightly as needed for Insom nina. Dispense: 30 tablet; Refill: 3 4. Primary insomnia -Start traZODone (DESYREL) 50 mg tablet; Take 1 tablet by mouth nightly as needed for Insom nina. Dispense: 30 tablet; Refill: 3 REVIEW OF SYSTEMS Review of Systems Constitutional: Negative. HENT: Negative. Eyes: Negative. Respiratory: Negative. Cardiovascular: Negative. Gastrointestinal: Negative. Genitourinary: Negative. Musculoskeletal: Negative. Skin: Negative. Neurological: Negative. Hematological: Negative. Psychiatric/Behavioral: Negative. PHYSICAL EXAM VITAL SIGNS: BP 100/68 | Pulse 57 | Temp 36.5 C (97.7 F) (Temporal) | Resp 16 | Wt 93.2 kg (205 lb 7.5 oz) | LMP (LMP Unknown) | SpO2 97% | ? No | BMI 31.24 kg/m Constitutional: Well developed, No acute distress, Pleasant female. HENT: Normocephalic, Atraumatic, Bilateral external ears normal, Oropharynx with no erythma , No oral exudates, Nose normal. Cardiovascular: Regular rate & rhythm, No murmurs, No rubs, No gallops. No lower extremitie s edema. Thorax & Lungs: Normal chest, No respiratory distress, No crackles, wheezing, or rubs. Skin: Warm, No erythema, No rash. Musculoskeletal: Severely decreased range of motion in her right shoulder on abduction and flexion especially above horizontal, no deformities, pain to palpation in the posterior and superior aspect of right shoulder. Neurologic: Alert & oriented x 3, No [...] migraine COPD (chronic obstructive pulmonary disease) ([facility]) Depression Diarrhea Dumping syndrome Fall at home Fatigue fracture of vertebra Fibromyalgia Full dentures GERD (gastroesophageal reflux disease) Glaucoma Hyperparathyroidism ([facility]) Hypothyroidism IBS (irritable bowel syndrome) Idiopathic scoliosis Leg edema Low back pain Lumbar postlaminectomy syndrome Lumbar radiculopathy primarily right 01/04/2015 Meniere syndrome Migraine with aura Migraines Muscle cramping Muscle spasm Myalgia Nausea Nonalcoholic hepatosteatosis Obesity Opioid dependence ([facility]) Orthostatic hypotension OLIVER (obstructive sleep apnea) Osteoarthritis, generalized Osteopenia Osteoporosis Palpitations Peripheral neuropathy Rheumatoid arthritis ([facility]) Right arm pain 01/04/2015 RLS (restless legs syndrome) S/P lumbar fusion 01/04/2015 Scoliosis Sleep apnea Spondylosis with myelopathy, lumbar region Stroke ([facility]) Syncope Tremor Type II or [...] Last attempt to quit: 04/15/2014 Years since quittin.9 Smokeless tobacco: Never Used Tobacco comment: stopped [...] Days Morelia Thapa MD 1,000 mcg at 03/21/19 0951 ALLERGIES Allergies Allergen Reactions Ensure Diarrhea Food Diarrhea Lactose Hzhbvcriud-Hws-Ssjn-Codeine Other (See Comments) Balance problems Codeine Sulfate Nausea Only Food Allergy Formula Diarrhea Ensure Levofloxacin Hives, Itching and Rash Butalbital Ropinirole Amitriptyline Hcl Other (See Comments) Confused and questionable for seizures Uhjzyqizsn-Zbfv-Bdtgyabd Rash duplicate Pjqudsfrdk-Uyci-Smuxrqwv Hives and Rash Cephalexin Hives Ciprofloxacin Hives and Rash Clarithromycin Hives and Rash Clindamycin Hcl Hives and Rash Doxycycline Rash Duloxetine Other (See Comments) Migraines and nausea Ketorolac Hives Levofloxacin Hives and Rash Morphine Swelling Penicillins Hives and Rash Ropinirole Hcl Hives Sulfamethoxazole-Trimethoprim Hives and Rash Tramadol Hcl Nausea Only FOLLOW-UP Return in about 3 months (around 06/21/2019). Notes: 1. Parts of this documentwere created using [employer] speech recognition software. As a resu lt, there may be unintended word spelling errors. Every attempt was made to correct the di ctation. INdoshantelle colin in this encounter Plan of Treatment +--------+---------+ + + + | Date | Type | Specialty | Care Team | Description | +--------+---------+ + + + | 02/15/ | Office | Internal Medicine | Alanis, | | | 2020 | Visit | | MD Petrona | | | | | | [address] [place] | | | | | | [place] [address] | | | | | | [phone] | | | | | | | | +--------+---------+ + + + documented as of this encounter Visit Diagnoses + + | Diagnosis | + + | Migraine without aura and without status migrainosus, not intractable - Primary | | Migraine without aura, without mention of intractable migraine without mention of status | | migrainosus | + + | Rotator cuff tear arthropathy of right shoulder Traumatic arthropathy, shoulder | | region | + + | Situational depression | + + | Primary insomnia Persistent disorder of initiating or maintaining sleep | + + documented in this encounter [...] | | | First dose on [facility] 10/15/17 at 1215 | | | [...]
--- OUTSIDE RECORDS SUMMARY | ~2020-01-25 | XMS | Encounter Summary ---
Demographics + + + | Address | [address] | | | [place] [address] | + + + | Home Phone [...] Providers + +------+ + | Care Post Form Remover Name | Role | Phone | + [...] | Transcriptions | + + | Interface, Core Man In - 06/05/2005 5:20 AM PST | | [id number] | | [id number] GEOVANNI Barnes | | | | Date: 12/06/2004 | | | | Attending Surgeon: Chris Padgett M.D. | | | | Growth Media Mixer Mushroom(s): | | | | Preoperative Diagnosis(es): | [...] | | BW / HS | | [id number] / [id number] / [id number] / | | | | | | | | | | | | Electronically signed by Chris Padgett 12-31-2004 03:02:45 PM | + + documented in this encounter Visit Diagnoses Not on filedocumented in this encounter"
--- OUTSIDE RECORDS SUMMARY | ~2020-01-25 | XMS | Encounter Summary ---
Demographics + + + | Address | [address] | | | [place] [address] | + + + | Home Phone [...] Providers + +------+ + | Care Film Laboratory Technician Name | Role | Phone | [...] + + | 04/08/ | Telephone | [facility] | Rosi Antonio, | | | 2012 | | Pain Center at | ANP | | | | | [facility] | | | | | | [address] | | | | | | [facility] | | | | | | and Healing, | | | | | | Building , | | | | | | Floor [place], [place] | | | | | | [address] | | | | | | [phone] | | | +--------+ + + + [...]
--- OUTSIDE RECORDS SUMMARY | ~2020-01-25 | XMS | Encounter Summary ---
Demographics + + + | Address | [address] | | | [place] [address] | + + + | Home Phone [...] Providers + +------+ + | Care High School Admissions Representative Name | Role | Phone | [...] + + | 02/17/ | Clinical | [facility] | Alanis, | Vitamin B12 | | 2018 | Support | MEDICINE [address] [place] [address] | MD Petrona | deficiency | | | | [place], | [address] [facility] | | | | | [place] [address] | [place] [address] | | | | | [phone] | [phone] | | | | | | | [...] | | | | | [place] [address] | | | | | | [phone] | | | | | | | [...] | | | | First dose on [facility] 10/15/17 at 1215 | | [...]
--- OUTSIDE RECORDS SUMMARY | ~2020-01-25 | XMS | Encounter Summary ---
Demographics + + + | Address | [address] | | | [place] [address] | + + + | Home Phone [...] Team Providers + +------+ + | Care Allopathic Doctor Name | Role | Phone | + [...] as of this encounter Progress Notes Interface, Employment Agency Manager In - 12/11/2005 2:05 AM PDT [id number] GEOVANNI SKELTON [id number] Clinic Date: 11/27/2005 Clinic: Rheumatology Primary Care [...] 6 months. Caitlin Rivera M.S., F.N.P. / [id number] / [id number] / [id number] / [id number] cc: Pedrito Gutierrez M.D. [address] [place] [id number] Electronically signed by Caitlin Rivera 12-10-2005 09:27:21 AM documented i n this encounter Plan of Treatment Not on filedocumented as of this encounter Visit Diagnoses Not on filedocumented in this encounter"
--- OUTSIDE RECORDS SUMMARY | ~2020-01-25 | XMS | Encounter Summary ---
Demographics + + + | Address | [address] | | | [place] [address] | + + + | Home Phone [...] Team Providers + +------+ + | Care Weasand Trimmer Name | Role | Phone | [...] | | | [facility] | [place], [place] | | | | | [address] | [address] | | | | | [address] | [phone] | | | | | Physician's | | | | | | Pavilion, [facility] floor | | | | | | [place], [place] | | | | | | [address] | | | | | | [phone] | | | +--------+ + + + [...] by | | | | | | [facility] | | | | | | Regional Laboratory. | | | | + + + + + + + + | Specimen | + + | | + + + + + + + | Performing | Address | City/State/Zipcode | Phone Number | | Organization | | | | + + + + + | [facility] | [address] | [place] [address] | | | LABORATORY | | | [...] | pg/mL | | | | | [facility] | | | | | | Laboratory. | | | | + + + + + + + + | Specimen | + + | | + + + + + + + | Performing | Address | City/State/Zipcode | Phone Number | | Organization | | | | + + + + + | [facility] | [address] | [place] [address] | | | LABORATORY | | | [...] + + + + | [facility] | [address] | [place] [address] | | | PATHOLOGY | [address] | | | + + + + + | [facility] DEPARTMENT OF | [address] | [place] [address] | | | PATHOLOGY | [address] | | | + + + + + documented in this encounter Visit Diagnoses Not on filedocumented in this encounter"
--- OUTSIDE RECORDS SUMMARY | ~2020-01-25 | XMS | Encounter Summary ---
Demographics + + + | Address | [address] | | | [place] [address] | + + + | Home Phone [...] Team Providers + +------+ + | Care Framing Consultant Name | Role | Phone | [...] [address] | | | | | | [place], [place] | | | | | | [address] | | | +--------+ + + + [...]
--- OUTSIDE RECORDS SUMMARY | ~2020-01-25 | XMS | Encounter Summary ---
Demographics + + + | Address | [address] | | | [place] [address] | + + + | Home Phone [...] Team Providers + +------+ + | Care Permastone Installer Name | Role | Phone | + +------+ + | Petrona Thapa | PCP | | | MD | | | + +------+ + Reason for Visit + +--------+ + | Reason | Onset | Comments | | | Date | | + +--------+ + | Medication Prior | 05/03/ | Sumatriptan | | Authorization | 2017 | | + +--------+ + Encounter Details +--------+ + + + + | Date | Type | Department | Care Team | Description | +--------+ + + + + | 05/03/ | Telephone | [facility] | Alanis, | Medication Prior | | 2017 | | [address] | MD Petrona | Authorization | | | | [place], | [address] [facility] [place] | (Sumatriptan) | | | | [place] [address] | [place] [address] | | | | | [phone] | [phone] | | | | | | | [...] this encounter Miscellaneous Notes Telephone Encounter - Mayda Montoya - 05/03/2018 12:24 PM PSTReceived prior auth request [facility] Sumatriptan. No PA is needed on medication, pharmacy already notified. Please see referral#[id number] on details if needed. Closed encounter today. documented in this encounter Plan of Treatment [...] | | | | | [place] [address] | | | | | | [phone] | | | | | | | | +--------+---------+ + + + documented as of this encounter Visit Diagnoses Not on filedocumented in this encounter"
--- OUTSIDE RECORDS SUMMARY | ~2020-01-25 | XMS | Encounter Summary ---
Demographics + + + | Address | [address] | | | [place] [address] | + + + | Home Phone [...] Team Providers + +------+ + | Care Black Oxide Operator Name | Role | Phone | [...] | Telephone | [facility] | Patricia Banegas, | Lab Results | | 2012 | | Center at [facility] [address] | VICE PRESIDENT SUPPLY CHAIN [address] | | | | | [address] [facility] [facility] | [facility] [address] | | | | | for Health and | [place], [place] | | | | | [facility] 2 | [address] | | | | | [place], [place] | [phone] | | | | | [address] | | | | | | [phone] | | | +--------+ + + + [...]
--- OUTSIDE RECORDS SUMMARY | ~2020-01-25 | XMS | Encounter Summary ---
Demographics + + + | Address | [address] | | | [place] [address] | + + + | Home Phone [...] Providers + +------+ + | Care Associate Store Leader Name | Role | Phone | [...] | | | Stay [address] | [place], [place] | Examination; HTN | | | | [address] | [address] | (Hypertension); | | | | Mailcode: [id number] | [phone] | Chronic Pain | | | | [facility] | | | | | | [address] [facility] [place] | | | | | | [address] | | | | | | [phone] | | | +--------+---------+ + + + [...] dietary restrictions or a bowel preparation. Your [facility] g[facility] team will give you additional printed [...] PM please call your surgeons' office for [id number]. PARKING Parking for patients and visitors is available in the [facility] Parking structure located across from the [...] ADVICE FOR DAY OF SURGERY: Remove nail uruguayan from at least one fingernail (if applicable) [...] surgeries scheduled to take place on the [place] at the [facility]: Surgeries scheduled in the [facility] ([address] [place] [address]): registration is located on the 4th floor of [facility] (Day Surgery). Surgeries scheduled in the [facility]: registration is located on the 9th floor . For surgeries scheduled to take place at the [facility]: registration i s located on the 4th floor (Surgery Center). AVOID THESE MEDICATIONS FOR 7 DAYS BEFORE SURGERY PRODUCTS CONTAINING ASPIRIN Jacquelyn-Biola, Anacin, Anexsia with Codeine, Len nos, Aspirin, Aspirin suppositories, Ascri ptin, Aspergum, Axotal, B-A-C, Baby Aspirin, Lucila, BC Powder, Bexophene, Buffaprin, Bufferi n, Buffinol, Cama-Arthritis Strength, Congespirin, Shell, Coricidin, Damason, Darvon, Dristan , Anastasia-Gesic, Digel, Dolprin #3 Tablets, Donatab, Doxaphene, Duragesic, Easprin, Ecotrin, Dipika grin Forte, Emiprin, Emprazil, Equagesic, Equazine M, Excedrin, Fiogesic, Fiorgen PH, Fioric et, Fiorinal, 4-Way Cold Tablet Gemnisyn, Indocin, Liquprin, Lortab ASA, Magnaprin, Marnal, Meprobamate, Midol, Momentum, N orgesic, [place], Orphengesic, Pabalate, P-A-C, Percodan, Presalin, Robaxasil, Roxiprin, Bunny eto, Salocol SK-65 Compound, Sine-Aid, Sine-Off,, [place], Supac, Talwin Compound, Trigesic, Tolectin , Traiminicin, Vanquish, ZORprin, Zomax PRODUCTS CONTAINING IBUPROFEN Advil, Aleve, Haltran, Medipren, Midol, Motrin, Naproxyn, Nuprin, Rufen OTHER PRODUCTS WHICH MAY PROMOTE BLEEDING Vitamin E, Gingko Biloba, Marine Fatty Acids, Newport-3 Fish Oil Supplements documented in this encounter [...] | + + + + + | [facility] DEPARTMENT | [address] [facility] | [place] [address] | | | PATHOLOGY | [address] | | | + + + + + | [facility] DEPARTMENT OF | [address] [facility] | [place] [address] | | | PATHOLOGY | [address] [...] | + + + + + | [facility] DEPARTMENT OF | [address] | [place] [address] | | | PATHOLOGY | [address] | | | + + + + + | [facility] DEPARTMENT | [address] | [place] [address] | | | PATHOLOGY | [address] [...] | | | DEPARTMENT | | | [facility] | | | OF | | | [...] HEALTH SERVICES | [address] | [place] [address] | | | PATHOLOGY | [address] | | | + + + + + | [facility] | [address] | [place] [address] | | | PATHOLOGY | [address] [...] | + + + + + | [facility] DEPARTMENT OF | [address] | [place] [address] | | | PATHOLOGY | [address] | | | + + + + + | [place] DEPARTMENT OF | [address] | [place] [address] | | | PATHOLOGY | [address] [...] view image for the detailed interpretation from [employer] results. | CARDIOLOGY | | | | + + + + + + + + | Performing | Address | City/State/Zipcode | Phone Number | | Organization | | | | + + + + + | [facility] DE[facility] OF | [address] | [place], [place] | | | CARDIOLOGY | [address] | [address] | | + + + + + | [facility] OF | [address] | [place], [place] | | | CARDIOLOGY | [address] | [address] | | + + + + + [...]
--- OUTSIDE RECORDS SUMMARY | ~2020-01-25 | XMS | Encounter Summary ---
Demographics + + + | Address | [address] | | | [place] [address] | + + + | Home Phone [...] Team Providers + +------+ + | Care Ase Master Mechanic Name | Role | Phone | + +------+ + | Maria Esther Cintron MD | PCP | | + +------+ + Encounter Details +--------+ + + + + | Date | Type | Department | Care Team | Description | +--------+ + + + + | 10/27/ | Telephone | [facility] | Chris Padgett, | | | 2008 | | [place] [address] | [address] [facility] | | | | | Bethanie Mailcode: CH4S | [address] | | | | | Center for [facility] | [place], [place] | | | | | and Healing, | [address] | | | | | Building , 6th | [phone] | | | | | Floor [place], [place] | | | | | | [address] | | | | | | [phone] | | | +--------+ + + + [...]
--- OUTSIDE RECORDS SUMMARY | ~2020-01-25 | XMS | Encounter Summary ---
Demographics + + + | Address | [address] | | | [place] [address] | + + + | Home Phone [...] Providers + +------+ + | Care Med Spa Manager Name | Role | Phone | [...] + | 10/09/ | Refill | [facility] | Alanis, | Medication Refill | | 2017 | | MEDICINE [address] | MD Petrona | | | | | [place], | [address] | | | | | [place] [address] | [place] [address] | | | | | [phone] | [phone] | | | | | | | [...] | | | | | [place] [address] | | | | | | [phone] | | | | | | | | +--------+---------+ + + + documented as of this encounter Visit Diagnoses Not on filedocumented in this encounter"
--- OUTSIDE RECORDS SUMMARY | ~2020-01-25 | XMS | Encounter Summary ---
Demographics + + + | Address | [address] | | | [place] [address] | + + + | Home Phone [...] + + | 04/08/ | Telephone | [facility] Division of | Carlos Arreola, | Swelling | | 2005 | | Gastroenterology/Hep | [address] | ([place]REEA) | | | | atology [address] | | | | | [address] | [place] [address] | | | | | Mailcode: [id number] | [phone] | | | | | Phys[facility]ilion | | | | | | [address] | | | | | | [place], [place] | | | | | | [address] | | | | | | [phone] | | | +--------+ + + + [...]
--- OUTSIDE RECORDS SUMMARY | ~2020-01-25 | XMS | Encounter Summary ---
Demographics + + + | Address | [address] | | | [place] [address] | + + + | Home Phone | | + + + | Preferred Language | Unknown | + + + | Marital Status | | + + + | Bahai Affiliation | 1001 | + + + | Race | Unknown | + + + | Ethnic Group | Unknown | + + + Author + + + | Author | [facility] | | | and [place] | + + + | Organization | [facility] | | [...] Providers + +------+ + | Care Manager Environmental Health Name | Role | Phone | [...] | | Osteoporosis | i, | [address] | | | | | , | [place] | [place], | | | | | unspecified | , [address] | [place] [address] | | | | | osteoporosis | [address] | Phone: | | | | | type, | [place], | [phone] | | | | | unspecified | [place] | Fax: | | | | | pathological | [address] | [phone] | | | | | fracture | Phone: | | | | | | presence | [phone] | | | | | | Procedures | Fax: | | | | | | MS | [phone] | | | | | | ZOLEDRONIC | | | | | | | ACID 1MG | | | +--------+ + + + + + Encounter Details +--------+ + + + + | Date | Type | Department | Care Team | Description | +--------+ + + + + | 08/18/ | Hospital | [facility] | Alanis, | Osteopenia, | | 2018 | Encounter | MED CTR OP INFUSION | MD [place]rona | unspecified location | | | | [address] | [address] [facility] | | | | | [place] | [place] [address] | | | | | [address] | [phone] | | | | | [phone] | | | +--------+ + + + [...] signed by: Roya Voss RN 08/18/2017 12:25 Nikita Ortiz PharmD - 08/18/2017 11:[address] Booth office and got verbal report of what pts most r ecent Scr was from her lab draw at [facility]. Marlyn PharmD reports it was 0.81 mg/dL. This would make her CrCl= 92mL/min based on adjust body weight. We are ok to give Reclast and n ot draw a new Scr. Nikita Guzman [employer]zz 08/18/2017 11:38 Roya Espinosa RN - 08/18/2017 11:00 AM PST Vitals: 08/18/17 1110 BP: 133/65 Pulse: 63 Resp: 16 Temp: 36.5 C (97.7 F) Belinda Meehan received into room 441, independent ambulation accompanied by her amber keller. States here for Reclast infusion. Reports no change in condition, plan of care since estrella SHEEHAN visit. Alert, oriented x 4, cooperative. [...] 08/18/2017 13:21 documented in this enc ounter Miscellaneous Notes Addendum Note - Roya Voss RN - 08/18/2017 1:24 PM PSTEncounter addended by: Roya Voss RN on: 08/18/2017 13:24
Actions taken: Check Out activity completedElectronicall y signed by Roya Voss RN at 08/18/2017 1:24 PM PSTAddendum Note - Roya Voss RN - 08/18/2017 1:23 PM PSTEncounter addended by: Roya Voss RN on: 08/18/2017 13:23
A ctions taken: Sign clinical note 1: 23 PM PSTdocumented in this encounter Plan of [...] | | | | | [place] [address] | | | | | | [phone] | | | | | | | [...]
--- OUTSIDE RECORDS SUMMARY | ~2020-01-25 | XMS | Encounter Summary ---
Demographics + + + | Address | [address] | | | [place] [address] | + + + | Home Phone [...] Providers + +------+ + | Care Farm Machine Operator Name | Role | Phone | + +------+ + | Sulaiman Carrera MD | PCP | | + +------+ + Encounter Details +--------+ + + + + | Date | Type | Department | Care Team | Description | +--------+ + + + + | 10/05/ | Ancillary | Registration [address] | Ramon Ibarra, | | | 2006 | Registratio | [facility] [address] | [address] [facility] | | | | [address] | [address] Mailcode: RPB07 | [place], [place] | | | | | [place], [place] | [address] | | | | | [address] | [phone] | | | | | [phone] | | | +--------+ + + + [...]
--- OUTSIDE RECORDS SUMMARY | ~2020-01-25 | XMS | Encounter Summary ---
Demographics + + + | Address | [address] | | | [place] [address] | + + + | Home Phone [...] Team Providers + +------+ + | Care Vp Digital Marketing Name | Role | Phone | [...] | Visit | [facility] [address] | PIPE WASHER | syndrome [address] | | | | [address] | | (Primary Dx); | | | | Physician's | | Fibromyalgia | | | | Pavilion, 4th Floor | | | | | | [place], [place] | | | | | | [address] | | | | | | [phone] | | | +--------+---------+ + + + [...] + + +--------+ + + | TN INJECT TRIGGER | Procedures | Routin | [...]
--- OUTSIDE RECORDS SUMMARY | ~2020-01-25 | XMS | Encounter Summary ---
Demographics + + + | Address | [address] | | | [place] [address] | + + + | Home Phone [...] Team Providers + +------+ + | Care Eyeglass Fitter Name | Role | Phone | + +------+ + PCP | Unavailable | + +------+ + Encounter Details +--------+ + + + + | Date | Type | Department | Care Team | Description | +--------+ + + + + | 02/14/ | Abstract | General Surgery | Chris Padgett, | | | 2004 | | [address] | [address] | | | | | Loop Mailcode: | [address] | | | | | [address] Physician's | [place], [place] | | | | | [address] | [address] | | | | | [place], [place] | [phone] | | | | | [address] | | | | | | [phone] | | | +--------+ + + + [...]
--- OUTSIDE RECORDS SUMMARY | ~2020-01-25 | XMS | Encounter Summary ---
Demographics + + + | Address | [address] | | | [place] [address] | + + + | Home Phone [...] Team Providers + +------+ + | Care Felling Machine Operator Name | Role | Phone [...] as of this encounter Progress Notes Interface, Cattle Sprayer In - 01/12/2005 8:09 AM PDTClinic Date: [...] months. Chris Padgett M.D. ROSA / SHARIF [id number] / [id number] / [id number] / Tdocumented in this encounter Plan of Treatment Not on filedocumented as of this encounter Visit Diagnoses Not on filedocumented in this encounter"
--- OUTSIDE RECORDS SUMMARY | ~2020-01-25 | XMS | Encounter Summary ---
Demographics + + + | Address | [address] | | | [place] [address] | + + + | Home Phone [...] Providers + +------+ + | Care Child And Family Counselor Name | Role | Phone | [...] | Osteopenia | | 2006 | | [place] | [address] [facility] | | | | | Bethanie Mailcode: CH[address]S | [address] | | | | | [facility] | [place], [place] | | | | | and Healing, | [address] | | | | | [facility] | [phone] | | | | | Floor [place], [place] | | | | | | [address] | | | | | | [phone] | | | +--------+ + + + [...]
--- OUTSIDE RECORDS SUMMARY | ~2020-01-25 | XMS | Encounter Summary ---
Demographics + + + | Address | [address] | | | [place] [address] | + + + | Home Phone [...] Team Providers + +------+ + | Care Food Mixer Assembler Name | Role | Phone | + +------+ + PCP | Unavailable | + +------+ + Encounter Details +--------+ + + + + | Date | Type | Department | Care Team | Description | +--------+ + + + + | 03/15/ | [facility] | | Letters, Other | Letters | | 2002 | scribed [...] as of this encounter Progress Notes Interface, Tornado Chaser In - 01/21/2006 1:09 AM [facility] [place] [address] [address], [place] [address] or March 15, 2002 Pedrito Gutierrez M.D. [facility] [address] [place] [address] RE: BELINDA MEEHAN MR #: [id number] Dear Dr. Gutierrez: I had the pleasure of seeing Belinda Meehan again today in the [facility]. She has been taking phentermine 30 mg p.o. q.a.m. since the beginning of January 2002. Her weight has decreased another 5.9 pounds to her current weight of 307 pounds. Her blood pressure is excellent with a value of 118/76 mmHg, and her heart rate also is very good at 62 beats per minute. The improvement in blood pressure and pulse may be do in part to an increase in her dosage of Inderal to 160 mg p.o. b.i.d. through your clinic. She is currently suffering from an upper respiratory infection for which is receiving treatment with Ceftin. She uses her CPAP machine every night even when she is away from home. The other outstanding issue is the finding of abnormal lesions in her breast on her mammogram performed in January 2002. Apparently, she underwent a fine-needle biopsy which showed benign cytology, but she is due to have another biopsy in a few months. 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 This appointment is still pending. At the time of her last visit at the end of December 2001, she had an elevated creatine kinase concentration of 779 u/L with an elevated aldolase concentration of 10.0 u/L. It is interesting to note that her creatine kinase concentration today is actually normal with a value of 85 u/L. She continues to have abnormal concentrations of AST and ALT with values of 63 u/L and 71 u/L respectively. In summary, she is responding reasonably well to treatment with phentermine and will continue with this therapy. I have recommended that she increase the dosage to 37.5 mg p.o. q.a.m. I gave her a prescription for this. She will fill when she finishes using her current supply of 30 mg capsules. She still needs to quit smoking, but she has managed to reduce her usage to 1/4 to 1/3-pack of cigarettes daily. Her blood pressure control is excellent. She is awaiting further evaluation of a possible familial myopathy. I will see her again in about 3 months. In the meantime, she will need to continue to have your careful monitoring. If you have any questions or concerns, please do not hesitate to contact me. Sincerely, Issac Meeks M.D. loan coordinator Division of Endocrinology, Diabetes, and Clinical Gas Line Installer Supervisor of Metabolic Disorders Clinic PBBuzz / SHARIF [id number] / [id number] / [id number] / Tdocumented in this encounter Plan of Treatment Not on filedocumented as of this encounter Visit Diagnoses Not on filedocumented in this encounter"
--- OUTSIDE RECORDS SUMMARY | ~2020-01-25 | XMS | Encounter Summary ---
Demographics + + + | Address | [address] | | | [place] [address] | + + + | Home Phone [...] Providers + +------+ + | Care Cable Coverer Name | Role | Phone | + [...]
--- OUTSIDE RECORDS SUMMARY | ~2020-01-25 | XMS | Encounter Summary ---
Demographics + + + | Address | [address] | | | [place] [address] | + + + | Home Phone [...] Providers + +------+ + | Care Hat Model Name | Role | Phone | + +------+ + | Pedrito Gutierrez MD | PCP | | + +------+ + Encounter Details +--------+ + + + + | Date | Type | Department | Care Team | Description | +--------+ + + + + | 05/20/ | Telephone | [facility] | Rohan Foley MD | | | 2005 | | [place] [address] [address] | | | | | | [address] [facility] | | | | | | for Health and | | | | | | Healing, [address] | | | | | | [place], [place] | | | | | | [address] | | | | | | [phone] | | | +--------+ + + + [...]
--- OUTSIDE RECORDS SUMMARY | ~2020-01-25 | XMS | Encounter Summary ---
Demographics + + + | Address | [address] | | | [place] [address] | + + + | Home Phone [...] Providers + +------+ + | Care Retail Analyst Name | Role | Phone | + +------+ + | Petrona Thapa | PCP | | | MD | | | + +------+ + Reason for Visit + +--------+ + | Reason | Onset | Comments | | | Date | | + +--------+ + | Medication Refill | 06/30/ | | | | 2017 | | + +--------+ + Encounter Details +--------+--------+ + + + | Date | Type | Department | Care Team | Description | +--------+--------+ + + + | 06/30/ | Refill | [facility] | Alanis, | Medication Refill | | 2017 | | MEDICINE [address] | MD [place] | | | | | [place], | [address] [facility] | | | | | [place] [address] | [place] [address] | | | | | [phone] | [phone] | | | | | | | [...] | | | | | [place] [address] | | | | | | [phone] | | | | | | | | +--------+---------+ + + + documented as of this encounter Visit Diagnoses + + | Diagnosis | + + | Bronchitis - Primary Bronchitis, not specified as acute or chronic | + + documented in this encounter"
--- OUTSIDE RECORDS SUMMARY | ~2020-01-25 | XMS | Encounter Summary ---
Demographics + + + | Address | [address] | | | [place] [address] | + + + | Home Phone [...] Team Providers + +------+ + | Care Rolling Chair Pusher Name | Role | Phone | [...] | and counseling | | | | [facility] | [place], [place] | (08/28/08 Lab | | | | and Healing, | [address] | results) | | | | [place] [address] [facility] | [phone] | | | | | [place], [place] | | | | | | [address] | | | | | | [phone] | | | +--------+ + + + [...]
--- OUTSIDE RECORDS SUMMARY | ~2020-01-25 | XMS | Encounter Summary ---
Demographics + + + | Address | [address] | | | [place] [address] | + + + | Home Phone [...] Team Providers + +------+ + | Care Numerical Control Machine Tool Operator Name | Role | Phone | + +------+ + | Petrona Thapa | PCP | | | MD | | | + +------+ + Reason for Visit + +--------+ + | Reason | Onset | Comments | | | Date | | + +--------+ + | Results, Imaging | 03/02/ | | | | 2017 | | + +--------+ + Encounter Details +--------+ + + + + | Date | Type | Department | Care Team | Description | +--------+ + + + + | 03/02/ | Telephone | [facility] | Alanis, | Results, Imaging | | 2017 | | MEDICINE [address] | MD [place] | | | | | [place], | [address] [facility] [place] | | | | | [place] [address] | [place] [address] | | | | | [phone] | [phone] | | | | | | | [...] Encounter - Maggie Montoya LPN - 03/02/2018 4:20 PM PDTPatient notified of imagi jen results with comments elephone Encounter - Maggie Montoya LPN - 03/02/2018 4:20 PM PDT----- Message from Morelia wilson-Russell Thapa MD sent at 03/02/2018 15:11 PDT ----- X-ray shows only minimal degenerative changes. elephone Encounter - Bob Melgar - 03/02/2018 12:41 PM P DTPatient called states she was just seen she would like to know how long do lab results amaris e to come in please call [phone].Electronically signed by Bob Tinoco at 02/13 12:42 PM PDTdocumented in this encounter Plan of [...] | | | | | [place] [address] | | | | | | [phone] | | | | | | | | +--------+---------+ + + + documented as of this encounter Visit Diagnoses Not on filedocumented in this encounter"
--- OUTSIDE RECORDS SUMMARY | ~2020-01-25 | XMS | Encounter Summary ---
Demographics + + + | Address | [address] | | | [place] [address] | + + + | Home Phone [...] Team Providers + +------+ + | Care Risk Tech Name | Role | Phone | + +------+ + | Petrona Thapa | PCP | | | MD | | | + +------+ + Encounter Details +--------+ + + + + | Date | Type | Department | Care Team | Description | +--------+ + + + + | 03/02/ | Hospital | [facility] | Alanis, | Neck pain on right | | 2018 | Encounter | [facility] [address] [facility] | MD [place]a | side | | | | [address] [place] | [address] [place] | | | | | [place], [place] | [place] [address] | | | | | [address] | [phone] | | | | | [phone] | | | +--------+ + + + [...] | 1 | 01/21/20 | | | (SHAYNA-FRANCIS M20) 20 | [...] | | | | | [place] [address] | | | | | | [phone] | | | | | | | [...]
--- OUTSIDE RECORDS SUMMARY | ~2020-01-25 | XMS | Encounter Summary ---
Demographics + + + | Address | [address] | | | [place] [address] | + + + | Home Phone [...] Team Providers + +------+ + | Care Gravel Truck Driver Name | Role | Phone | [...] 10/28/ | Office | [facility] | Lukasz Charles, | Major Depressive | | 2006 | Visit | [address] | PhD [address] | Disorder, Recurrent | | | | Center for Health | [facility] [place] | Episode, Moderate | | | | and Healing, | [address] | ([facility]); Neck Pain; | | | | Building | [phone] | Herniated Lumbar | | | | Floor [place], [place] | | Intervertebral Disc | | | | [address] | | L4-5; 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 She has been doing cross stitch [...] She has using good self-care skills. Diagnosis: Cavalier I: 1. (296.32) Major depressive disorder, recurrent, moderate. 2. (309.24) Adjustment disorder with anxiety. 3. (307.89) Chronic pain disorder associated with both psychological factors and a gene ral medical condition. Cavalier II: Deferred Cavalier III: abdominal pain, migraine headache, low back pain. Cavalier IV: low finances Cavalier V: GAF 50 Plan: Return in 2 weeks. Check preparation for move and for niece's visit, results of orthopedic visit. Check pacing, relaxation, activity, distraction. Continue cognitive/behavioral the rapy. Total time spent with patient was approximately 45 minutes. LUKASZ CHARLES PHD [facility] [address] [facility], 4th [place] [address] documented in this encount er Plan of [...]
--- OUTSIDE RECORDS SUMMARY | ~2020-01-25 | XMS | Encounter Summary ---
Demographics + + + | Address | [address] | | | [place] [address] | + + + | Home Phone [...] Team Providers + +------+ + | Care Cap Blocker Name | Role | Phone | [...] [address] | | | | | [facility] | [place], [place] | | | | | [address] | [address] | | | | | [address] | [phone] | | | | | Phys[facility] | | | | | | Physician's | | | | | | Pavilion [place], | | | | | | [place] [address] | | | | | | [phone] | | | +--------+--------+ + + + [...]
--- OUTSIDE RECORDS SUMMARY | ~2020-01-25 | XMS | Encounter Summary ---
Demographics + + + | Address | [address] | | | [place] [address] | + + + | Home Phone [...] Providers + +------+ + | Care Swimming Instructor Name | Role | Phone | [...] | | Center at [facility] [address] | FUR FINISHER SEAMSTRESS [address] | | | | | [address] [place] | [facility] [address] | | | | | for Health and | [place], [place] | | | | | [place] [address] | [address] | | | | | [place], [place] | [phone] | | | | | [address] | | | | | | [phone] | | | +--------+ + + + [...]
--- OUTSIDE RECORDS SUMMARY | ~2020-01-25 | XMS | Encounter Summary ---
Demographics + + + | Address | [address] | | | [place] [address] | + + + | Home Phone [...] Providers + +------+ + | Care Farm Machinery Mechanic Name | Role | Phone | + +------+ + | Petrona Thapa | PCP | | | MD | | | + +------+ + Reason for Visit + +--------+ + | Reason | Onset | Comments | | | Date | | + +--------+ + | Headache (Adult - | 12/12/ | | | Recurrent Or Known | 2019 | | | Dx Migraines) | | | + +--------+ + Encounter Details +--------+ + + + + | Date | Type | Department | Care Team | Description | +--------+ + + + + | 12/12/ | Telephone | [facility] | Alanis, | Headache (Adult - | 2019 | | MEDICINE [address] | MD Petrona | Recurrent Or Known | | | | [place], | [address] [place] | Dx Migraines) | | | | [place] [address] | [place] [address] | | | | | [phone] | [phone] | | | | | | | [...] Telephone Encounter - Maggie Montoya LPN - 12/13/2019 4:17 PM PDTPatient states worse head ache ongoing now for 2 weeks, not able to keep anything down, visual disturbance. Advised to seek medical attention at the ED in [facility]. Patient states son is with her and will be taking her. FYI ele phone Encounter - Long Owen - 12/13/2019 4:07 PM PDTPatient is wanting to see about getting an appt to see Dr. Booth for her migraine. Patient is also wanting to see about getting a cat scan or MRI on her head to see why she is having migraines. Ioana tai signed by Long Chin at 12/13/2019 4:09 PM PDTdocumented in this encounter Plan of [...] | | | | | [place] [address] | | | | | | [phone] | | | | | | | | +--------+---------+ + + + documented as of this encounter Visit Diagnoses Not on filedocumented in this encounter"
--- OUTSIDE RECORDS SUMMARY | ~2020-01-25 | XMS | Encounter Summary ---
Demographics + + + | Address | [address] | | | [place] [address] | + + + | Home Phone [...] Providers + +------+ + | Care Loading Manager Name | Role | Phone | [...] | | | Metabolism | bypass | [address] | [address] | | | | | Hypovitamino | [address], | Ave | | | | | sis D [address]12 | [address] | [place], [place] | | | | | nutritional | [place], [place] | [address] | | | | | deficiency | [address] | Phone: | | | | | Other | Phone: | [phone] | | | | | protein-jose manuel | [phone] | Fax: | | | | | nick | Fax: | [phone] | | | | | malnutrition | [phone] | | | | | | Weight | | | | | | | gain | | | | | | | Procedures | | | | | | | CONSULT TO | | | | | | | ENDO | | | | | | | [address] | | | | | | | [address] | | | +--------+--------+ + + + + Encounter Details +--------+---------+ + + + | Date | Type | Department | Care Team | Description | +--------+---------+ + + + | 03/22/ | Office | Kraig Turner | Beto Meeks MD | Metabolic syndrome X | | 2012 | Visit | [facility] | [address] | 250.80 (Primary | | | | [facility] | [place], [place] | Dx); Hypothyroidism; | | | | [address] | [address] | Essential | | | | [address] | [phone] | hypertension 401.9; | | | | [facility] | | Fibromyalgia | | | | Physician's | | syndrome 729.1 | | | | [facility] [place], | | | | | | [place] [address] | | | | | | [phone] | | | +--------+---------+ + + + [...] + + + | Blood Pressure | 104/70 | 03/22/2013 2:53 PM | | | | | PDT | | + + + + + | Pulse | 64 | 03/22/2013 2:53 PM | | | | | PDT [...] Weight | 101.6 kg (224 lb) | 03/22/2013 2:53 PM | | | | | PDT | | + + + + + | Height | 172.7 cm (5' 8") | 03/22/2013 2:53 PM | | | | | PDT | | + + + + + | Body Mass Index | 34.06 | 03/22/2013 2:53 PM | | | | | PDT | | + + + + + documented in this encounter Progress Notes Beto Meeks MD - 03/22/2013 3:21 PM PDTFormatting of this note might be different from lesli gomez. Endocrinology Clinic Subjective Belinda Meehan is a 53 y.o. woman who is here for a followup visit regarding metabolic sy ndrome, prior gastric bypass surgery in 2004, hypothyroidism, IGT, and other issues noted be low. Her PCP told her not to take the phentermine because she had an episode of tacchyarhythmia and hypotension with pulse > 200 after her former physician stopped her inderal suddenly. S he has had no recurrences of the arrhythmia since that time, during which she has been takin g metoprolol. She has been taking liquid calcium , [...] Hives Mainly in the legs Clindamycin Codeine Zitmpyr-Qlomigfckg-Hut-Caff Balance problems Fioricet W/Codeine (Ncxjrcjxvx-Kuicldjqpm-Fir-Cod) Keflex (Cephalexin) Morphine IM ( only in [facility]) made gut pain worse 08/27/06: Trial of oral MSIR caused leg swelling Penicillins Sulfa (Sulfonamide Antibiotics) Tramadol Current Outpatient Prescriptions Medication Sig CALCIUM 600 WITH VITAMIN D OR 1000 mg tab 4 x daily cholecalciferol, Vitamin D3, 1,000 unit Oral tablet Take 4,000 Units by mouth once chad y. Cyanocobalamin 1,000 mcg/mL Injection Syringe 1 inj q month furosemide (LASIX) 40 mg Oral Tablet take 1 tablet (80 mg) by oral route twice daily gabapentin 300 mg Oral Tablet Take 300 mg by mouth three times daily. levothyroxine 50 mcg Oral tablet Take 75 mcg by mouth once daily. methocarbamol 750 mg Oral Tablet Take 1-2 Tabs by mouth three times daily. Multivitamin Oral Tablet 1 tab by mouth twice daily phentermine 37.5 mg Oral tablet Take 0.5 Tabs by mouth once daily in the morning. Admin ister mid-morning POTASSIUM CHLORIDE SR 20 MEQ TAB, PARTICLES/CRYSTALS take 3 tablet (20meq) by oral rout e twice daily with food promethazine 25 mg Oral Tablet 1 tab by mouth as needed sucralfate (CARAFATE) 1 gram Oral Tablet Take 1 Tab by mouth before meals. VITAMIN C 500 MG CHEWABLE TAB four times a day No current facility-administered medications for this visit. Physical Exam BP 104/70 | Pulse 64 | Ht 1.727 m (5' 8") | Wt 101.606 kg (224 lb) | BMI 34.07 kg/(m^2) Body mass index is 34.07 kg/(m^2). Alert, NAD, mood WNL Skin unremarkable Thyroid 20-25 g. No palpable nodules Cardiac-RRR, no murmur/S3/S4/rubs. No JVD. Pulses 2+. No bruits Abdomen: No hepatosplenomegaly, masses, or tenderness Extremities: no pretibial edema. DTRs 2+/2+ Wt Readings from Last 4 Encounters: 03/22/13 101.606 kg (224 lb) 12/21/12 100.653 kg (221 lb 14.4 oz) 09/23/12 97.07 kg (214 lb) 01/10/10 98.884 kg (218 lb) Labs Component Latest Ref Rng 12/21/2012 12/21/2012 [...] U/L 41 ANION GAP 8 VITAMIN B12, [id number] pg/ml >2000 (H) HEMOGLOBIN A1C <=5.6 % 5.7 (H) Component Latest Ref Rng 12/21/2012 12/21/2012 12/21/2012 12/21/2012 WBC 4.4-11.0 K/cu mm [...] SERUM 15.0-85.0 pg/ml 222.9 (H) VITAMIN B12, [id number] pg/ml > 2000 HEMOGLOBIN A1C <=5.6 % 5.7 Assessment Belinda Meehan is a 53 y.o. female who has medical problems noted above. 1. Metabolic syndrome: She has qained 10 lbs since September. She needs to lose weight. Life style modification has not had sufficient efficacy. Will have her try low dose phentermine. Her PCP is concerned about the episode of tachyarrhythmia and hypotension that she had 2 y ears ago, but that episode was most likely related to sudden cessation of treatment with ind eral. She has been taking metoprolol 50 mg BID and feels well without palpitations, hypoten ana laura, syncope, etc. She tolerates 1/2 cup of coffee daily without experiencing palpitations . She has previously tolerated phentermine 37.5 mg/d without adverse side-effects. 2. BP is good 3. Secondary hyperparathyroidism: She can increase her calcium intake. Her vitamin D leve l is low normal 4. Chronic pain: Possible fibromyalgia. This is causing sleep impairment. She will have a sleep study this coming Thursday Plan 1. Cautious trial of phentermine 18.75 mg q AM. We did PARQ. She wants to proceed with tr eatment. 2. Increase calcium intake to 3 doses daily 3. Do sleep study 4. Healthy Lifestyle 5. RTC 2-3 Months document ed in this [...] Unspecified essential hypertension | + + | Fibromyalgia syndrome 729.1 Mylagia and myositis, unspecified | + + documented in this encounter
--- OUTSIDE RECORDS SUMMARY | ~2020-01-25 | XMS | Encounter Summary ---
Demographics + + + | Address | [address] | | | [place] [address] | + + + | Home Phone [...] Providers + +------+ + | Care Senior Payroll Specialist Name | Role | Phone | [...] | Osteopenia | MD Beto | [facility] | | | | | Procedures | [address] | [address] | | | | | CONSULT TO | Ave | [address] | | | | | BONE | [place], [place] | Rd Mailcode: | | | | | DENSITOMETRY | [address] | [address] | | | | | | Phone: | Nae[address] La [address] | | | | | | [phone] | [place], [place] | | | | | | Fax: | [address] | | | | | | [phone] | Phone: | | | | | | | [phone] | | | | | | | Fax: | | | | | | | [phone] | +--------+--------+ + + + + Reason [...] | | | [facility] | [facility] [place] | | | | | [address] | [address] | | | | | [address] | [phone] | | | | | [facility] | | | | | | Physician's | | | | | | [facility] [place], | | | | | | [place] [address] | | | | | | [phone] | | | +--------+ + + + [...]
--- OUTSIDE RECORDS SUMMARY | ~2020-01-25 | XMS | Encounter Summary ---
Demographics + + + | Address | [address] | | | [place] [address] | + + + | Home Phone [...] Team Providers + +------+ + | Care Out Of Town Collection Clerk Name | Role | Phone | [...] as of this encounter Progress Notes Interface, Scheduling Representative In - 08/19/2005 2:05 AM PST [id number] [facility] Clinic Date: 07/24/2005 Clinic: Hematology/Oncology Chief Complaint: Spontaneous bruising. History of Present Illness: Ms. Meehan is a 45-year-old woman with a past medical history significant for a gastric bypass surgery in 2003, who presents today for evaluation of abnormal labs and spontaneous bruising. She states that over the past several months, she has noted spontaneous bruises on her lower extremities. She states that at one point, she had a bruise on her right thigh and currently complains of one ecchymosis on her left rodriguez. She states that prior to that, there was a bruise with a knot in it on her left rodriguez and another bruise on her right rodriguez. She denies any history of bleeding gums with toothbrushing. She states that she has a history of bloody nose, not requiring transfusion, but this was resolved in 1994 after being put on a beta colby. She does have a history of heavy menstrual periods which resulted in total abdominal hysterectomy in 1980. She states that when she would have her menstrual period, she would saturate the bed sheets with blood despite the use of tampons and pads. She also had 3 D and Cs prior to her hysterectomy without relief. 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 There was also a healthy twin, and she now has 2 sons. She denies any fevers, chills, or night sweats. No chest pain, shortness of breath, nausea, vomiting, or diarrhea. She does have abdominal pain which is being evaluated by her surgeon, Dr. Chris Padgett. She states that she has lost 270 pounds since having her gastric bypass surgery 3 years ago. Past Medical History: History of Zoe-en-Y gastric bypass for morbid obesity in 2003, history of leg cramps, hypertension, reflux, and osteoarthritis of multiple joints. Surgical History: In 2003, she had a Zoe-en-Y gastric bypass. In 2001, she had lumpectomy. In 1987, she had ovaries and appendectomy. In 1980, total abdominal hysterectomy. In 1963, tonsillectomy and adenoidectomy. She has had her knees, ankles, and shoulders all operated on as well. Medications: 1. Multivitamin. 2. Phenergan 25 mg suppository as needed. 3. Quinine 325 mg nightly. 4. Vistaril 25 mg nightly. 5. Vitamin B12 solution. 6. Vitamin E 400 units b.i.d. 7. Aspirin 81 mg p.o. daily. 8. Diclofenac potassium 50 mg p.o. b.i.d. 9. Betoptic solution. 10. Ranitidine 150 b.i.d. 11. Verapamil CR 240 b.i.d. 12. Magnesium 100 mg b.i.d. 13. Cyanocobalamin 1000 mcg p.o. daily. 14. Doxycycline 100 mg p.o. b.i.d. 15. Calcium with vitamin D. 16. Glucosamine chondroitin. 17. Wellbutrin XL 300 mg p.o. daily. Family History: Mother at age 64. She did have a history of nosebleeds and had one episode of a hemorrhage, but she of apparent aspiration. Father of unknown cause. No other histories of bleeding disorders or malignancies. 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 She still smokes 1/2 pack a day and is trying to quit. She denies any alcohol intake. She lives with her children. Physical Examination: Vital Signs: Weight 164.7, blood pressure 108/72, heart rate 70, and temperature 98.3. General: She is a pleasant woman in no apparent distress. HEENT: Pupils are equal and reactive to light. Extraocular movements intact. Oropharynx is moist without lesions. Neck: Supple. No lymphadenopathy. Lungs: Clear to auscultation bilaterally. No rhonchi or wheezes. Cardiovascular: Regular rate and rhythm. Normal S1 and S2 without clicks, murmurs, or rubs. Abdomen: Soft, nontender, and nondistended with no hepatosplenomegaly. Extremities: No cyanosis, clubbing, or edema. Skin: Approximately, 2.5-cm green ecchymosis on her left tibial region. No other ecchymoses are appreciated. No petechiae. Laboratory: Labs from [place]: Homocysteine 8.5 and SANIA negative. CBC: White count 9.1, hemoglobin 15.5, hematocrit 46.4, and platelets 278. PTT 23, bleeding time 6.5 minutes which is within normal limits, pro-time 13.6, and INR 1. D-dimer 788. Antithrombin enzyme elevated at 130, anticardiolipin antibody normal, factor V Leiden negative, protein C normal, and protein S normal. Von Willebrand panel: Everything is elevated. Fibrinogen: I am unable to read the fibrinogen level, but it appears that it is 426. Assessment and Recommendations: Ms. Meehan is a 45-year-old woman with a history of Zoe-en-Y gastric bypass surgery for morbid obesity. She presents today for evaluation of reported spontaneous bruising. Based on all the laboratory studies that have been obtained from [place], it does not appear that she has a bleeding diathesis. In addition, she has had multiple surgeries without a single bleeding complication. Therefore, I feel it is safe for her to undergo surgery as needed. Given her reported spontaneous bruising, however, we will repeat her CBC with differential, we will check a ferritin level which can result in easy bruisability, and we will obtain von Willebrand panel and platelet function assay. We will inform her if there are any abnormal results. The etiology of her bruising may be related to slightly increased bruisability from vitamin E supplementation as well as aspirin. She does have a history of leg cramps and may be inadvertently kicking herself in the shins at night. If we do not find any other obvious explanation for her bruising, we would likely recommend that she stop taking vitamin E supplementation. Karen Gramza, Joanna Sellers M.D. chemical economist / HS [id number] / [id number] / [id number] / [id number] cc: Pedrito Gutierrez M.D. [facility] [address] [place] [address] FAX: [phone] Electronically signed by Lukasz Sellers 08-18-2005 01:27:53 PM documented i n this encounter Plan of Treatment Not on filedocumented as of this encounter Visit Diagnoses Not on filedocumented in this encounter"
--- OUTSIDE RECORDS SUMMARY | ~2020-01-25 | XMS | Encounter Summary ---
Demographics + + + | Address | [address] | | | [place] [address] | + + + | Home Phone [...] Team Providers + +------+ + | Care Demand Generation Manager Name | Role | Phone | [...] | | | | Clinical Nutrition | [place], [place] | | | | | [address] | [address] | | | | | Loop Mailcode: OPC5 | [phone] | | | | | Outpatient Clinic | | | | | | [facility], | | | | | | [place] [address] | | | | | | [phone] | | | +--------+ + + + [...]
--- OUTSIDE RECORDS SUMMARY | ~2020-01-25 | XMS | Encounter Summary ---
Demographics + + + | Address | [address] | | | [place] [address] | + + + | Home Phone [...] Team Providers + +------+ + | Care Restrooms Or Lounges Maid Name | Role | Phone | + [...] | | | | | (degenerativ | [place], [place] | [place] | | | | | e joint | [address] | [address] | | | | | disease) of | | Phone: | | | | | knee Knee | | [phone] | | | | | pain Major | | Fax: | | | | | depressive | | [phone] | | | | | disorder, | [...] + + + + | 04/20/ | Auto Leasing Manager | [facility] Comprehensive | Miranda Lambert, | LBP (Low Back Pain); | | 2006 | | [facility] at | ANP | DJD (Degenerative | | | | [facility] | | Joint Disease) of | | | | [address] | | Knee; Bilateral Knee | | | | [facility] | | Pain; Major | | | | and Healing, | | Depressive Disorder, | | | | Building | | Recurrent Episode, | | | | Floor [place], [place] | | Moderate (HCC); | | | | [address] | | Adjustment Disorder | | | | [phone] | | with Anxiety; | | | [...]
--- OUTSIDE RECORDS SUMMARY | ~2020-01-25 | XMS | Encounter Summary ---
Demographics + + + | Address | [address] | | | [place] [address] | + + + | Home Phone [...] Refill Request | | 2008 | | [place] [address] | [address] | (Sucralfate) | | | | Bethanie Mailcode: CH4S | [facility] | | | | | [facility] | [place], [place] | | | | | and [place], | [address] | | | | | [facility] | [phone] | | | | | Floor [place], [place] | | | | | | [address] | | | | | | [phone] | | | +--------+--------+ + + + [...]
--- OUTSIDE RECORDS SUMMARY | ~2020-01-25 | XMS | Encounter Summary ---
Demographics + + + | Address | [address] | | | [place] [address] | + + + | Home Phone [...] Providers + +------+ + | Care Hat Measurer Name | Role | Phone | + [...] [address] | | | | | [place], [place] | [place], [place] | | | | | [address] | [address] | | | | | [phone] | [phone] | | | | | | | [...]
--- OUTSIDE RECORDS SUMMARY | ~2020-01-25 | XMS | Encounter Summary ---
Demographics + + + | Address | [address] | | | [place] [address] | + + + | Home Phone [...] Providers + +------+ + | Care Line O Scribe Operator Name | Role | Phone | + +------+ + PCP | Unavailable | + +------+ + Encounter Details +--------+ + + + + | Date | Type | Department | Care Team | Description | +--------+ + + + + | 01/22/ | Abstract | General Surgery | Chris Padgett, | | | 2004 | | [address] | [address] | | | | | Loop Mailcode: | [address] | | | | | [id number] Physician's | [place], [place] | | | | | [address] | [address] | | | | | [place], [place] | [phone] | | | | | [address] | | | | | | [phone] | | | +--------+ + + + [...]
--- OUTSIDE RECORDS SUMMARY | ~2020-01-25 | XMS | Encounter Summary ---
Demographics + + + | Address | [address] | | | [place] [address] | + + + | Home Phone [...] Team Providers + +------+ + | Care Jet Worker Name | Role | Phone | + +------+ + PCP | Unavailable | + +------+ + Encounter Details +--------+ + + + + | Date | Type | Department | Care Team | Description | +--------+ + + + + | 09/14/ | Hospital | [facility] | Ruben Tobias | | | 2001 | Encounter | MED CTR SLEEP | MD Raji [address] | | | | | [place] [address] | [address] [facility] | | | | | [place], [place] | [place] [address] | | | | | [address] | [phone] | | | | | [phone] | | | +--------+ + + + [...] | | | | | [place] [address] | | | | | | [phone] | | | | | | | | +--------+---------+ + + + documented as of this encounter Visit Diagnoses Not on filedocumented in this encounter"
--- OUTSIDE RECORDS SUMMARY | ~2020-01-25 | XMS | Encounter Summary ---
Demographics + + + | Address | [address] | | | [place] [address] | + + + | Home Phone [...] Providers + +------+ + | Care Project Reservoir Engineer Name | Role | Phone | [...] as of this encounter Progress Notes Interface, Medical Coding Instructor In - 12/25/2005 2:07 AM PDT [id number] GEOVANNI Barnes [id number] Clinic Date: 12/05/2005 Clinic: General Surgery Clinic PHONE CONSULTATION Subjective: Belinda Meehan has been under our care with a history of gastric bypass and recurrent abdominal pain, nondiagnostic on multiple tests. She was requesting a prescription for oxycodone which will be sent to her home at [address] [place] [address]. Oxycodone 5 mg, 5 to 10 p.o. [...] Padgett in clinic. Melisa Thorne / SHARIF [id number] / [id number] / [id number] / [id number] Electronically signed by Kenisha Melton 12-24-2005 01:41:04 PM documented i n this encounter Plan of Treatment Not on filedocumented as of this encounter Visit Diagnoses Not on filedocumented in this encounter"
--- OUTSIDE RECORDS SUMMARY | ~2020-01-25 | XMS | Encounter Summary ---
Demographics + + + | Address | [address] | | | [place] [address] | + + + | Home Phone [...] + +------+ + | Care Head Of Talent Management Name | Role | Phone | + +------+ + | Petrona Thapa | PCP | | | MD | | | + +------+ + Reason for Visit + +--------+ + | Reason | Onset | Comments | | | Date | | + +--------+ + | Headache (Adult - | 08/26/ | | | Recurrent Or Known | 2018 | | | Dx Migraines) | | | + +--------+ + Encounter Details +--------+ + + + + | Date | Type | Department | Care Team | Description | +--------+ + + + + | 08/26/ | Telephone | [facility] | Alanis, | Headache (Adult - | | 2018 | | MEDICINE [address] | MD Petrona | Recurrent Or Known | | | | [place], | [address] [place] | Dx Migraines) | | | | [place] [address] | [place] [address] | | | | | [phone] | [phone] | | | | | | | [...] Telephone Encounter - Maggie Montoya LPN - 08/26/2018 4:25 PM PDTPatient notified to take Imitrex as directed, will need updated sig sent to pharmacy, rx sent elephone Encounter - Juliane Elena - 08/27/19 19 2:43 PM PDTPatient called stating she has a migraine and has been taking Topamax 50 mg a nd another medication could not recall please, asked to speak to the nurse please advise.Maida ctronically signed by Juliane Elena at 08/26/2018 2:49 PM PDTdocumented in this encounter Plan of Treatment +--------+---------+ + + + | Date | Type | Specialty | Care Team | Description | +--------+---------+ + + + | 02/15/ | Office | Internal Medicine | Alanis, | | | 2019 | Visit | | MD Petrona | | | | | | [address] [facility] | | | | | | [place] [address] | | | | | | [phone] | | | | | | | [...]
--- OUTSIDE RECORDS SUMMARY | ~2020-01-25 | XMS | Encounter Summary ---
Demographics + + + | Address | [address] | | | [place] [address] | + + + | Home Phone [...] Providers + +------+ + | Care Cnc Specialist Name | Role | Phone | [...] as of this encounter Progress Notes Interface, Business Employment Specialist In - 01/12/2005 6:32 AM PDTClinic Date: [...] as the right and left upper gluteus ewdardo muscles. Assessment and Plan 1. We went [...] improves, and the leg discomfort is actually food service representative of restless legs. I have given [...] 4 months. Caitlin Rivera M.S., F.N.P. / [id number] / [id number] / [id number] / [id number] cc: Pedrito Gutierrez M.D. [address] [place], [place] [email or web address] signed by Interface, Business Employment Specialist In at 01/12/2005 6:3 2 AM PDTdocumented in this encounter Plan of Treatment Not on filedocumented as of this encounter Visit Diagnoses Not on filedocumented in this encounter"
--- OUTSIDE RECORDS SUMMARY | ~2020-01-25 | XMS | Encounter Summary ---
Demographics + + + | Address | [address] | | | [place] [address] | + + + | Home Phone [...] Team Providers + +------+ + | Care Coating Machine Feeder Name | Role | Phone | [...] 2007 | Visit | Rheumatology [address] | VICE PRESIDENT AND PORTFOLIO MANAGER | syndrome [address] | | | | [address] | | (Primary Dx) | | | | Mailcode: OPC5 | | | | | | Outpatient Clinic | | | | | | Building [place], | | | | | | [place] [address] | | | | | | [phone] | | | +--------+---------+ + + + [...] have much room. I wonder about small electrician wiring ior fossa. There is a disc bulge [...] 56.0 15.0-75.0 Final Test performed by [facility]. VITAMIN D 25 HYDROXY (ng/mL) 07/03/2007 47 20-57 Final Comment: TEST INFORMATION: VITAMIN D, 25-HYDROXY This assay accurately quantifies the sum of vitamin D3, 25-hydroxy and vitamin D2, 25-hydroxy. Deficiency: Less than 20 ng/mL Insufficiency: 20-29 ng/mL Optimum Level: 30-80 ng/mL Possible Toxicity: Greater than 80 ng/mL Performed by [facility], [address] [place] [id number] [email or web address], Sincere Jordan MD - Lab. Director documented in this encount er Plan of Treatment Not on filedocumented as of this encounter Visit Diagnoses + + | Diagnosis | + + | Fibromyalgia syndrome 729.1 - Primary Mylagia and myositis, unspecified | + + documented in this encounter"
--- OUTSIDE RECORDS SUMMARY | ~2020-01-25 | XMS | Encounter Summary ---
Demographics + + + | Address | [address] | | | [place] [address] | + + + | Home Phone [...] Team Providers + +------+ + | Care Pathology Assistant Name | Role | Phone | [...] | | | | | hemorrhoid | [place], [place] | [address] | | | | | Rectal pain | [address] | [facility] | | | | | Procedures | | Rd [place], | | | | | CONSULT TO | | [place] | | | | | [place]AL | | [address] | | | | | SURGERY | | Phone: | | | | | | | [phone] | | | | | | | Fax: | | | | | | | [phone] | +--------+--------+ + + + + Encounter Details +--------+---------+ + + + | Date | Type | Department | Care Team | Description | +--------+---------+ + + + | 10/03/ | Office | Digestive Health | Bandar Valenzuela, | Anal or Rectal Pain | | 2008 | Visit | Center at [facility] [address] | [address] | (Primary Dx) | | | | [address] | [facility] [address] | | | | | for Health and | [place], [place] | | | | | [facility], [facility] [address] | [address] | | | | | [place], [place] | [phone] | | | | | [address] | | | | | | [phone] | | | +--------+---------+ + + + [...] stool. She had a normal colonoscopy at [facility] in 2005 PMH: Past Medical History [...] 08/2007 right knee Hx lumbar fusion 05/2008 L5-U3resuuc with bone spur removals Hx appendectomy Hx [...] (Ciprofloxacin) Tramadol Morphine IM ( only in [facility]) made gut pain worse 08/27/06: Trial of oral MSIR caused leg swelling Clarithromycin Hives Mainly in the legs Cfzvbru-boradigpym-rts-caff Balance problems Amitriptyline Grand mal seizures SH: [...] + + +--------+ + + | [facility] | Procedures | Routin | Anal or Rectal | Ordered: 10/05/2008 | | ANOSCOPY | | e | Pain | | + + +--------+ + + documented as of this encounter Visit Diagnoses + + | Diagnosis | + + | Anal or rectal pain - Primary | + + documented in this encounter
--- OUTSIDE RECORDS SUMMARY | ~2020-01-25 | XMS | Encounter Summary ---
Demographics + + + | Address | [address] | | | [place] [address] | + + + | Home Phone [...] Providers + +------+ + | Care Welder And Fitter Name | Role | Phone [...] Pavilion | | | | | | [place], [place] | | | | | | [address] | | | | | | [phone] | | | +--------+ + + + [...]
--- OUTSIDE RECORDS SUMMARY | ~2020-01-25 | XMS | Encounter Summary ---
Demographics + + + | Address | [address] | | | [place] [address] | + + + | Home Phone [...] Team Providers + +------+ + | Care Mosaic Tiler Name | Role | Phone | + [...] Lab findings, | | 2007 | | [place] [address] | [address] | teaching, guidance, | | | | Ave Mailcode: [facility] | [address] | and counseling | | | | [facility] | [place], [place] | | | | | and Healing, | [address] | | | | | [facility] | [phone] | | | | | [place], [place] | | | | | | [address] | | | | | | [phone] | | | +--------+ + + + [...]
--- OUTSIDE RECORDS SUMMARY | ~2020-01-25 | XMS | Encounter Summary ---
Demographics + + + | Address | [address] | | | [place] [address] | + + + | Home Phone [...] Providers + +------+ + | Care Director Check Name | Role | Phone | + +------+ + | Pedrito Gutierrez MD | PCP | | + +------+ + Reason for Referral Physical Therapy (Routine) +--------+--------+ + + + + | Status | Reason | Specialty | Diagnoses / | Referred By | Referred To | | | | | Procedures | Contact | Contact | +--------+--------+ + + + + | Closed | | Physical | Diagnoses | [place], | Fili Pt Bartacker | | | | Therapy | Muscle | NIHARIKA Jean | [facility] | | | | | strain Neck | [address] | | | | | pain | [address] | Mailcode: | | | | | Fibromyalgia | [place], [place] | [facility] | | | | | Radicular | [address] | for Health | | | | | pain in left | | and Healing, | | | | | arm | | Building [address] | | | | | Procedures | | [place], [place] | | | | | PHYSICAL | | [address] | | | | | THERAPY | | Phone: | | | | | REFERRAL | | [phone] | +--------+--------+ + + + + Reason for Visit + + + | Reason | Comments | + + + | LBP - Low back pain | | + + + Encounter Details +--------+---------+ + + + | Date | Type | Department | Care Team | Description | +--------+---------+ + + + | 08/22/ | Office | [facility] | Delfina Lambert, | Muscle Strain hips; | | 2008 | Visit | Pain Center at | ANP | Fibromyalgia; Neck | | | | [facility] | | Pain; Radicular Pain | | | | [address] | | in Left Arm; | | | | Center for [facility] | | Dizziness; Black | | | | and Healing, | | Out; Falling | | | | Building | |Falling | | | | Floor [place], [place] | | | | | | [address] | | | | | | [phone] | | | +--------+---------+ + + + [...] + + + | Blood Pressure | 115/70 | 08/22/2008 9:28 AM | | | | | PDT | | + + + + + | Pulse | 75 | 08/22/2008 9:28 AM | | | | | PDT | | + + + + + | Temperature | 36.6 C (97.8 F) | 08/22/2008 9:28 AM | | | | | PDT | | + + + + + | Respiratory Rate | 16 | 08/22/2008 9:28 AM | | | | | PDT | | + + + + + | Oxygen Saturation | 99% | 08/22/2008 9:28 AM | | | | | PDT | | + + + + + | Inhaled Oxygen | - | - | | | Concentration | | | | + + + + + | Weight | 88.9 kg (196 lb) | 08/22/2008 9:28 AM | | | | | PDT | | + + + + + | Height | 175.3 cm (5' 9") | 08/22/2008 9:28 AM | | | | | PDT | | + + + + + | Body Mass Index | 28.94 | 08/22/2008 9:28 AM | | | | | PDT | | + + + + + documented in this encounter Patient Instructions Patient Instructions Delfina Lambert ANP - 08/22/2008 11:17 AM PDTNo change in medications Schedule PT evaluation and treat for neck and hip/back Continuewith Dr Ogden schedule a follow up visit Schedule MRI of the neck at [facility] Use your TENS for the muscle pain Schedule follow up after the MRI to review results documented in this encounter Progress Notes Delfina Lambert ANP - 08/22/2008 10:22 AM PDTFormatting of this note might be different fr om the original. 08/22/2008 Belinda Meehan is a 48 y.o. female [facility] Return Visit Chief Complaint: Chief Complaint Patient presents with LBP - Low back pain History of Present Illness: Belinda Meehan is a 48 y.o. year-old female with a history o f chronic pain musculoskeletal pain due to fibromyalgia, osteoarthritis and degenerative spi ne disease of the cervical and lumbar spine. Belinda Meehan is here today for a follow up visit to review chronic pain management plan of care. Since prior visit 07/24/08 the condition of her lower back has worsened. She repo rts last Thursday slipping on ice "the splits" and since then have pain in both buttocks that radiates to the groin described as a Aching "lie a toothache", aggrevated by prolonged sitt ing, walking. Pain relieved by percocet. She reports "head spinning" and falling 3 weeks ago, went to hospital, has been ongoing is jamshid the past two months. Stopped the Fioricet made no difference adverse effects of numb f walt. Still taking amitriptyline 75 mg qhs no change in pain with this, noted has not had EK G done re dizziness, denies heart palpitations. "Room spinning and I can't keep up with it " Hx three episodes first in June does not remembering any inciting event found her self lying on the floor "I dont' no what happened" "It is scary" "Dr. Gutierrez not doing anthing a bout it". Feels that cervical extension makes her dizzy, sick to stomach and the neck "hurts " sharp pain radiates into the shoulder blades. She gets the pain in the left arm with numbn ess and tingling last two fingers. Expectations for this visit include: not sure what to expect, review pain management and ne w pain. The worst pain today is located in both buttocks "hips" and described as throbbing and achi ng like a toothache. Aggrevated prolonged sitting, walking. Pain relieved by percocet. Jimmy n is Not associated with numbness, tingling, weakness is getting muscle cramping. Had seen improved lower back pain and left leg pain since spinal surgery working with PT, u p until she fell last Thursday now is not sure what's what? A Brief Pain Inventory and a pain drawing has be completed, which I reviewed. [facility] Brief Pain Inventory: (ten= worst possible pain or complete interference) Right Now: 10 (08/22/08 9:36 AM) Least in 24 hours: 7 (08/22/08 9:36 AM) Worst in 24 hours: 10 (08/22/08 9:36 AM) Average: 9 (08/22/08 9:36 AM) % Relief (med/treat): 20 (08/22/08 9:36 AM) General Activity: 10 (08/22/08 9:36 AM) Mood: 9 (08/22/08 9:36 AM) Walking Ability: 10 (08/22/08 9:36 AM) Normal Work: 9 (08/22/08 9:36 AM) Relations with Others: 10 (08/22/08 9:36 AM) Enjoyment of Life: 7 (08/22/08 9:36 AM) Sexual Activity: 0 (08/22/08 9:36 AM) Sleep: 8 (08/22/08 9:36 AM) Treatment since last visit includes: 1. Medication management: Oxycodone CR 40 mg Q12hr and Percocet PRN 2. Physical Rehabilitation: NA 3. Mental Health care: psychology Dr Ogden PRFaiza every 3 months or as needed 4. [place] MD ThuAug 09, 2008 These results are okay. Her vitamin D and iron levels are okay. Please let her know. There are no new clues about the cause of dizziness Component Reference Range 07/28/2008 IRON SERUM 37-160 ug/dL 89 IRON BIND CAP SERUM 245-400 ug/dL 431 (A) VITAMIN D 25 HYDROXY 30-100 ng/mL 52 CALCIUM (LAB) 8.5-10.5 mg/dL 9.4 PTH, SERUM 12-65 pg/mL 49 Review of Systems: Denies auditory or visual difficulties resent go new glassess working well for her, fullnes s in ears or sinus infections/pain. Bones, Joints, and Muscles: joint pain, muscle pain and stiffness Gastrointestinal System: abdominal pain Genitourinary System: negative Urinary Incontinence: stress Nervous System: Numbness left hand, headache not as often and sensation of "room spinning" Not working with PT has an appointment to see lumbar spine surgery in [place] on . Psychiatric History: depressed mood, sleep disturbance and [...] 278 01/18 Paniculectomy Hx lumbar fusion 05/2008 L5-S9sdcsue with bone spur removals Family History Problem Relation Cancer Mother Heart Father Additional Family History Father Migraine Additional Family History Mother Migraine Physical Examination: BP 115/70 | Pulse 75 | Temp (Src) 36.6 C (97.8 F) (Oral) | Resp 16 | Ht 1.753 m (5' 9") | Wt 88.905 kg (196 lb) | SpO2 99% Body mass index is 28.94 kg/(m^2). General appearance: Alert in no acute distress, well groomed, pleasant Cervical spine: guarded, pain with extension and rotation, associated with dizziness resist s this movement Lumbopelvis: axial and coccyx tenderness [ chronic], diffuse muscle tenderness buttocks, in guinals, side lying SLR proked her typical pain in the leg and buttocks. Patricks and Gaenslan : negative Restricted March sign Gait stiff and unbalance, unsteady not able to heel or tandem without holding DTR: absent bicep tricep and brachialredialis knees [ Hx TKR] and ankles Impression: 848.9D Muscle Strain hips 729.1AV Fibromyalgia 723.1B Neck Pain 729.2DH Radicular Pain in Left Arm 780.4A Dizziness 780.2D Black Out E888.9H Falling Belinda has ongoing chronic pain due to fibromyalgia, arthritis,degenerative spine disease. Improved lumbar and right leg pain, 3 months s/p lumbar spine fusion L5/S1, and since having a right knee replacement. Working with PT as improved her surgical recovery and functiona l capacity up untill. resent slipping on ice last Thursday as set her back with extensive myof asial pain and strain in the lumbopelvic region. I am concerned about her falling episode s associated with dizzy/black out spells, lab work to date has been negative, I would like h er to get a dynamic Cervical MRI to assess for cord compression, obstruction of CSF flow or vertebral artery flow as her symptoms [ dizziness and nausea ] can be reproduced with cervic al extension. She has intermittent neck pain with extension and rotation with left UE radi acular pain in a C7/8 dermatome no neurosensory deficits she does get intermittent numbness and tingling with the pain, I would like to get the MRI results befor planning [facility] care. Belinda was compliant with all aspects of chronic opioid therapy with oxycodone , is using t he medication as directed, demonstrates benefits though maybe having some tolerance issues, she has no serious adverse effects. There were no significant cognitive or mood impairments . There is no evidence of diversion past or present. Insurance needs to authorize further follow up with psychology - Dr. Lukasz Ogden PhD, she h as, and would benefit continuing with cognitive behavioral therapy for pain and mood managem ent. She has none of these resources in her local region. She is able to work with local PT , I gave her a new referal for her new myofasial pain. I don't see any indication to do furt her diagnostics on the lumbopelvic pain due to the nature of the injury. Recommendations/Plan: A 30 minute visit with greater than 50% spent in reviewing the progress notes and counselli ng/education of the patient. 1. Order for cervical spine MRI WWO dynamic scan in neutral and extension to assess for sp inal compression CSF and vertebral arthery flow symptoms of dizziness and nausea with cervic al extension. 2. No change in medications 3. Rx given for external PT evaluation and treatment for neck and hip/back pain and dysfunc tion - hold neck PT till MRI results known. 4. Continue with pain psychology with Dr. Ogden schedule a follow up visit 5. TENS for the muscle pain [ patient has a unit] 6. Schedule follow up after the MRI has been done or sooner if needed - The pateint was asked to call the clinic with any concerns or questions. [facility] Mail code [place] [address] [place] [facility] [address] Ailyn Foster - 03/2009 9:30 AM PDTCMA History: PMH/PSH/SH/FH review 1. Has your pain changed from your last visit? Increased has had several falls 2. Do you have any new weakness [...] any diagnostic studies since your last appointment? yes 10. Do you require any medication refills today? no documented in this encounter Plan of Treatment + +---------+--------+ [...] Imaging | Routin | Neck Pain | Expected: 08/22/2008 | | WWO CONTR | | e | Radicular Pain in | | | | | | Left Arm Dizziness | | | | | | Black Out Falling | | + +---------+--------+ + + documented as of this encounter Procedures + +--------+ + + + | Procedure Name | Priori | Date/Time | Associated Diagnosis | Comments | | | ty | | | | + +--------+ + + + | MRI CINE SPINE | Routin | 08/22/2008 | | Results for this | | CERVICAL WO C | e | 3:08 PM | | procedure are in the | | | | PDT | | results section. | + +--------+ + + + documented in this encounter Results MRI CINE SPINE CERVICAL WO C (08/22/2008 3:08 PM PDT) + + + + + + | Component | Value | Ref Range | Performed | Pathologist | | | | | At | Signature | + + + + + + | MRI CINE | MRI cervical spine | | | | | SPINE | without intravenous | | | | | CERVICAL WO | contrast and cine CSF | | | | | C | flowstudy | | | | | | 08/22/2008.Clinical | | | | | | Information: Dynamic | | | | | | scan in neutral position | | | | | | and extensionto assess | | | | | | for CSF flow and | | | | | | vertebral artery flow. | | | | | | Dizziness andvertigo | | | | | | with cervical | | | | | | extension.Comparisons: | | | | | | MRI cervical spine | | | | | | 05/25/2007.Technique: | | | | | | Multiplanar MR imaging | | | | | | of the cervical spine | | | | | | was performedin neutral | | | | | | and extension positions | | | | | | without intravenous | | | | | | contrast.Cine CSF flow | | | | | | study of the upper | | | | | | cervical spine, | | | | | | including theforamen | | | | | | magnum, was performed as | | | | | | well.Findings:Cervical | | | | | | spine alignment is | | | | | | normal. No marrow | | | | | | signal abnormality.No | | | | | | intramedullary cord | | | | | | signal abnormality. At | | | | | | the C3-C4 level, | | | | | | thereis right | | | | | | uncovertebral osteophyte | | | | | | formation and mild | | | | | | neural | | | | | | foraminalnarrowing on | | | | | | the right. At the | | | | | | C4-C5 level, there is | | | | | | rightuncovertebral | | | | | | osteophyte formation and | | | | | | mild neural | | | | | | foraminalnarrowing on | | | | | | the right. No spinal | | | | | | canal narrowing. | | | | | | Degenerativechanges | | | | | | appear stable compared | | | | | | to the prior study.CSF | | | | | | flow study demonstrates | | | | | | normal biphasic flow at | | | | | | the level of theforamen | | | | | | magnum in both neutral | | | | | | and extension positions. | | | | | | The flowwithin the | | | | | | vertebral arteries | | | | | | appears normal and | | | | | | symmetric in bothneutral | | | | | | and extension | | | | | | positions.Impression:1. | | | | | | Mild degenerative | | | | | | changes of the cervical | | | | | | spine consisting | | | | | | ofuncovertebral | | | | | | osteophyte formation and | | | | | | mild neural | | | | | | foraminalnarrowing on | | | | | | the right at the C3-C4 | | | | | | and C4-C5 level. No | | | | | | spinal canalnarrowing.2. | | | | | | Cine CSF flow study | | | | | | demonstrates normal | | | | | | biphasic flow at | | | | | | thelevel of the foramen | | | | | | magnum and symmetric | | | | | | flow within the | | | | | | vertebralarteries in | | | | | | both neutral and | | | | | | extension positions. | | | | | | If more | | | | | | definitivedynamic | | | | | | evaluation of the | | | | | | vertebral arteries is | | | | | | deemed necessary dueto | | | | | | clinical symptoms, | | | | | | dynamic conventional | | | | | | catheter | | | | | | angiographyshould be | | | | | | considered.I have | | | | | | personally viewed this | | | | | | procedure/exam and | | | | | | reviewed this | | | | | | report.Author: ELDA | | | | | | Joanna VIRKReviewer: | | | | | | NANETTE GOODSON | | | | | | MNajmaSTATUS FINAL / | | | | | | NANETTE BENJAMIN | | | | | | PENDING FINAL APPROVAL / | | | | | | Dr. SCHROEDER | | | | | | CHRISTIAN | | | | | | PRELIMINARY - UNSIGNED / | | | | | | Dr. ELDA VIRK | | | | + + + + + + + + | Specimen | + + | | + + + +---------+ + + | Performing | Address | City/State/Zipcode | Phone Number | | Organization | | | | + +---------+ + + | [facility] DEPARTMENT OF | | | | | RADIOLOGY | | | | + +---------+ + + documented in this encounter Visit Diagnoses + + | Diagnosis | + + | Muscle Strain hips Unspecified site of sprain and strain | + + | Fibromyalgia Mylagia and myositis, unspecified | + + | Neck pain Cervicalgia | + + | Radicular pain in left arm Neuralgia, neuritis, and radiculitis, unspecified | + + | Dizziness Dizziness and giddiness | + + | Black out Syncope and collapse | + + | Falling Unspecified fall | + + documented in this encounter
--- OUTSIDE RECORDS SUMMARY | ~2020-01-25 | XMS | Encounter Summary ---
Demographics + + + | Address | [address] | | | [place] [address] | + + + | Home Phone [...] Team Providers + +------+ + | Care Ob Nurse Name | Role | Phone | [...] [id number] | | | | | | [place], [place] | | | | | | [address] | | | | | | [phone] | | | +--------+ + + + [...]
--- OUTSIDE RECORDS SUMMARY | ~2020-01-25 | XMS | Encounter Summary ---
Demographics + + + | Address | [address] | | | [place] [address] | + + + | Home Phone [...] Team Providers + +------+ + | Care Fringe Maker Name | Role | Phone | [...] as of this encounter Progress Notes Interface, Needle Control Cheniller In - 08/19/2005 2:05 AM PST [id number] [facility] Date: 07/24/2005 Clinic: Hematology [...] full and complete summary. Lukasz Sellers M.D. dinkey engine firer NANCY / SHARIF [id number] / [id number] / [id number] / [id number] cc: Pedrito Gutierrez M.D. [address] [place] [address] Electronically signed by Lukasz Sellers 08-18-2005 01:28:24 PM documented i n this encounter Plan of Treatment Not on filedocumented as of this encounter Visit Diagnoses Not on filedocumented in this encounter"
--- OUTSIDE RECORDS SUMMARY | ~2020-01-25 | XMS | Encounter Summary ---
Demographics + + + | Address | [address] | | | [place] [address] | + + + | Home Phone [...] as of this encounter Progress Notes Interface, Family Service Center Director In - 01/11/2005 8:56 PM PDTClinic Date: [...] bypass surgery and will be admitted to [facility] for this procedure on November 22, 2003. [...] Ester Romero M.D. Issac Meeks M.D. / [id number] / [id number] / [id number] / [id number] Tdocumented in this encounter Plan of Treatment Not on filedocumented as of this encounter Visit Diagnoses Not on filedocumented in this encounter"
--- OUTSIDE RECORDS SUMMARY | ~2020-01-25 | XMS | Encounter Summary ---
[...] Providers + +------+ + | Care Carton Liner Name | Role | Phone | + [...] + + | 01/25/ | Telephone | [facility] | Alanis, | Medical Problem | | 2017 | | MEDICINE [address] | MD [place] | | | | | [place], | [address] [facility] | | | | | [place] [address] | [place] [address] | | | | | [phone] | [phone] | | | | | | | [...] patient's voicemail to seek medical attention at [facility] when back in town to have [...] | | | | | [place] [address] | | | | | | [phone] | | | | | | | | +--------+---------+ + + + documented as of this encounter Visit Diagnoses Not on filedocumented in this encounter"
--- OUTSIDE RECORDS SUMMARY | ~2020-01-25 | XMS | Encounter Summary ---
Demographics + + + | Address | [address] | | | [place] [address] | + + + | Home Phone [...] Providers + +------+ + | Care Core Blower Name | Role | Phone | [...]
--- OUTSIDE RECORDS SUMMARY | ~2020-01-25 | XMS | Encounter Summary ---
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 Continue with [place] 10/325 1 tablet three times per day [...] might be different from th e original. 09/23/2006 Belinda Meehan is a 46 y.o. female [facility] Return Visit Chief [...] 72 hours on schedule 2. Continue with [place] 10/325 1 tablet three times per day as needed for increased pain wit h activity. 3. Continue with Trileptal 150mg, 1 tablet twice a day 4. Continue with PT and psychology as scheduled 5. Follow up with Delfina Molina in 4 weeks or sooner if needed. 6. Continue with orthopedic and neurology evaluations as scheduled DELFINA MOLINA [facility] Mail code [place] [address] [place] [facility] and [address] [address] Ty Omalley - 7 9:28 AM PDTCMA History: PMH/PSH/SH/FH [...] Yes , Fentanyl patch documented in this [facility] Plan of Treatment Not on filedocumented [...]
--- OUTSIDE RECORDS SUMMARY | ~2020-01-25 | XMS | Encounter Summary ---
Demographics + + + | Address | [address] | | | [place] [address] | + + + | Home Phone [...] Team Providers + +------+ + | Care Back Maker Name | Role | Phone | [...] | | | Procedures | [facility] | [facility] | | | | | CONSULT TO | Rd | Health and | | | | | NEUROLOGY | [place], [place] | Healing, | | | | | | [address] | Building [address], | | | | | | Phone: | [facility] Floor | | | | | | [phone] | [place], [place] | | | | | | | [address] | | | | | | | Phone: | | | | | | | [phone] | | | | | | | Fax: | | | | | | | [phone] | +--------+--------+ + + + + Encounter Details +--------+---------+ + + + | Date | Type | Department | Care Team | Description | +--------+---------+ + + + | 10/10/ | Office | Neurology at | Taniya Guerrero, | Migraine Headache | | 2007 | Visit | [facility] & | | (Primary Dx) | | | | Healing [address] | | | | | | [facility] | | | | | | Health and Healing, | | | | | | Building | | | | | | Floor [place], [place] | | | | | | [address] | | | | | | [phone] | | | +--------+---------+ + + + [...] by Dr. Padgett for migraines. She has ngueyn d migraines for 30 years. When they [...] low blood pressure. 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 Social History Main Topics [...] touch symmetrically throughout. Cerebellar testing shows normal pqxrii-lt-rgye and finger tapping. On gait testing, she [...] the names of 3 headache specialists in [place]- Dr. Koby García, Dr. Dakota Sweet and [...] | + + | Edwige, Faculty - 04/06/2008 7:29 AM PDT | + + documented in this encounter Visit Diagnoses + + | Diagnosis | + + | Migraine headache - Primary Migraine, unspecified, without mention of intractable | | migraine without mention of status migrainosus | + + documented in this encounter
--- OUTSIDE RECORDS SUMMARY | ~2020-01-25 | XMS | Encounter Summary ---
Demographics + + + | Address | [address] | | | [place] [address] | + + + | Home Phone [...] Providers + +------+ + | Care Asphalt Tile Floor Layer Name | Role | Phone [...] as of this encounter Progress Notes Interface, Office Admin In - 02/19/2005 5:04 AM PDT [id number] [facility] Date: 01/17/2005 Clinic: General [...] with Dr. Dwaine Larson. She has a iho-afub-kibsi lesion at the distal aspect of her [...] closure. Devin German M.D. Dwaine Larson M.D. [facility] / [id number] / [id number] / [id number] / [id number] Electronically signed by Dwaine Larson 02-18-2005 09:15:31 AM documented i n this encounter Plan of Treatment Not on filedocumented as of this encounter Visit Diagnoses Not on filedocumented in this encounter
--- OUTSIDE RECORDS SUMMARY | ~2020-01-25 | XMS | Encounter Summary ---
Demographics + + + | Address | [address] | | | [place] [address] | + + + | Home Phone [...] Team Providers + +------+ + | Care Pin Drafting Machine Operator Name | Role | Phone [...] | 2006 | Visit | [facility] | [address] | Spondylosis with | | | | [address] | Clementina Wink[place], | Myelopathy, Lumbar | | | | [address] [facility] for | [place] [address] | Region; Herniated | | | | Health and Healing, | | Lumbar | | | | Building | | Intervertebral Disc | | | | Floor [place], [place] | | L4-5; Fibromyalgia | | | | [address] | | syndrome 729.1 | | | | [phone] | | | +--------+---------+ + + + [...] Date: December 02, 2006 Patient: Belinda Meehan, [id number], 1960 I agree with the proposed Physical Therapy Treatment Plan. Provider: DELFINA MOLINA ANP Nathalia Garrett - 007 4:49 PM PDT Physical Therapy Medicare Progress Note Date: 09/09/2006 Belinda Meehan [id number]. 1960 Start of Care: 06/23/2006 Referring Provider: [...] with walking and sitting; driving back to [employer] 2 weeks ago, stopped at rest place and got out of care, falling onto B knees, getting better. Objective: Apparently patient's trip home 2 weeks ago was most likely related to her positi oning, ie B knees were hyperflexed for a prolonged time. She has not fallen since then, use s her lofstrand crutches consistently. Functionally, patient is walking 25 minutes at [employer] at least daily and tolerating it we [...] able to prepare a meal using the [employer]. Plan: Patient has 2 f/u visits remaining, will progress in core stabilization regime to fac ilitate improving function. Treatment began: 0 Treatment ended: 0 Nathalia Arora, Physical Therapist License #[id number] documented in this encoun ter Plan of [...] MD THERAPEUTIC | Procedures | Routin | Neck [...]
--- OUTSIDE RECORDS SUMMARY | ~2020-01-25 | XMS | Encounter Summary ---
Demographics + + + | Address | [address] | | | [place] [address] | + + + | Home Phone [...] Team Providers + +------+ + | Care Employee Benefits Manager Name | Role | Phone | + +------+ + | Petrona Thapa | PCP | | | MD | | | + +------+ + Reason for Visit +---------+--------+ + | Reason | Onset | Comments | | | Date | | +---------+--------+ + | Illness | 06/29/ | | | | 2017 | | +---------+--------+ + Encounter Details +--------+ + + + + | Date | Type | Department | Care Team | Description | +--------+ + + + + | 06/29/ | Telephone | [facility] | Alanis, | Illness | | 2017 | | MEDICINE [address] | MD Petrona | | | | | [place], | [address] [facility] | | | | | [place] [address] | [place] [address] | | | | | [phone] | [phone] | | | | | | | [...] Telephone Encounter - Maggie Montoya LPN - 06/30/2017 5:09 PM PSTPatient states has been r x'd Azithromycin and can tolerate. sent to rx to pharmacy, patient notified elephone Encounter - Petrona Thapa MD - 06/30/2017 11:49 AM PSTI could consider an ABX, but with pretty much all ABX classes listed on her allergy list, I am not sure what to prescribe for her. Has she sahara erate Azithromycin before?Electronically signed by Petrona Thapa MD at 018 11:50 AM PSTTelephone Encounter - Shalonda Mcdermott - 06/29/2017 4:26 PM PSTBrenda stated she has had a sore throat and ear pain off and on again for the last 2 weeks. She also noted her right ear lobe is infected again. She wanted to see if dr scott would prescribe her a ntibiotics without an office visit. Please advise Patient pharmacy is [facility] [place] Patient can be reached at [phone] signed by Shalonda Mcdermott at 06/29/2017 4:31 PM PSTdocumented in this encounter Plan of Treatment +--------+---------+ + + + | Date | Type | Specialty | Care Team | Description | +--------+---------+ + + + | 02/15/ | Office | Internal Medicine | Alanis, | | | 2019 | Visit | | MD Petrona | | | | | | Karla KAY | | | | | | [place] [address] | | | | | | [phone] | | | | | | | | +--------+---------+ + + + documented as of this encounter Visit Diagnoses Not on filedocumented in this encounter"
--- OUTSIDE RECORDS SUMMARY | ~2020-01-25 | XMS | Encounter Summary ---
Demographics + + + | Address | [address] | | | [place] [address] | + + + | Home Phone [...] Providers + +------+ + | Care Lead Handler Name | Role | Phone | [...] + + | 03/15/ | Telephone | Kraig Turner | Beto Meeks MD | Medication Questions | | 2007 | | [facility] | [address] | | | | | [facility] | [place], [place] | | | | | [address] | [address] | | | | | [address] | [phone] | | | | | Physician's | | | | | | Pavilion, 1st floor | | | | | | [place], [place] | | | | | | [address] | | | | | | [phone] | | | +--------+ + + + [...]
--- OUTSIDE RECORDS SUMMARY | ~2020-01-25 | XMS | Encounter Summary ---
Demographics + + + | Address | [address] | | | [place] [address] | + + + | Home Phone [...] Team Providers + +------+ + | Care Tile Power Shear Operator Name | Role | Phone [...] | Neurology | Diagnoses | [place], | [place], | | | | | Migraine | NIHARIKA Jean | Merari Lopez MD | | | | | headache | [address] | | | | | | Procedures | [address] | | | | | | CONSULT TO | [place], [place] | | | | | | NEUROLOGY | [address] | | +--------+--------+ + + + + [...] | (Primary Dx); | | | | [facility] | | Migraine Headache; | | | | [address] | | Opioid Dependence, | | | | [facility] | | Continuous (HCC); | | | | and Healing, | | Neck Pain; Right | | | | | | shoulder rotator | | | | Floor [facility] [place] | | cuff strain; | | | | [address] | | Spondylosis with | | | | [phone] | | Myelopathy, Lumbar | | | [...] this encounter Patient Instructions Patient Instructions Delfina Molnia - 10/23/2006 1:33 PM PDT1. Continue with current medi cations no changes 2. Continue with orthopedic surgical workup 3. Schedule Neurology evaluation [facility] order placed for Dr. Merari Mittal MD 4. Follow up 11/11/06 documented in this encounter Progress Notes Delfina Molina - 10/23/2006 1:20 PM PDTFormatting of this note might be different from th e original. 10/23/2006 Belinda Meehan is a 46 y.o. female [facility] Comprehensive Pain Center Return Visit [...] car. She has not been seeing the [facility] PT , await ing the surgical plan for her left knee. MRI done, ordered by Dr. Ibarra who referred to Dr. Angel Morales for surgical opinion, scheduled for 10/28/06. She continues to see Dr. Alin adames at [facility] and reports benefit and would like to nelly nue she has two more scheduled visits. She reports Dr. Woodson referred her to neurologist locally for her migraine assessment how ever not being scheduled due to insurance [place] barriers. She is interested in being referred to a Dr. Merari KEATING neurlogy whom she has heard works with [...] Collection Time Resulting Agency 10/05/2006 9:20 AM [facility] DEPARTMENT OF RADIOLOGY Component Results [...] the free margin and undersurface of the hotel attendant horn of the medial meniscus suspicious for [...] the left knee 3. Schedule Neurology evaluation [facility] order placed for Dr. Merari Mittal MD 4. Follow up 11/11/06 to reivew pain management 5. Cntinue with PT and psychology as scheduled DELFINA MOLINA [facility] Comprehensive Pain Center Mail code CH 4P [facility] and [address] [address] iValencia macias - 10/23 12:47 PM PDTCMA History: PMH/PSH/SH/FH [...]
--- OUTSIDE RECORDS SUMMARY | ~2020-01-25 | XMS | Encounter Summary ---
Demographics + + + | Address | [address] | | | [place] [address] | + + + | Home Phone [...] Team Providers + +------+ + | Care Lumber Driver Name | Role | Phone | [...] + + | 05/06/ | Telephone | [facility] | Alanis, | Other | | 2016 | | MEDICINE [address] | MD [place] | | | | | [place], | [address] [facility] | | | | | [place] [address] | [place] [address] | | | | | [phone] | [phone] | | | | | | | [...] 05/06/2017 8:43 AM PSTContact/Caller: Belinda Contact Number: [phone] Provider/Nurse: Emmy Reason for Call: Pt returning call for nurse believes it was regarding x rays. stated she c ould be reached at [phone]. Last Appointment: 05/04/17 Next Appointment: 06/01/17 documented [...] | | | | | [place] [address] | | | | | | [phone] | | | | | | | | +--------+---------+ + + + documented as of this encounter Visit Diagnoses Not on filedocumented in this encounter"
--- OUTSIDE RECORDS SUMMARY | ~2020-01-25 | XMS | Encounter Summary ---
Demographics + + + | Address | [address] | | | [place] [address] | + + + | Home Phone [...] Providers + +------+ + | Care Supervisor Capacitor Processing Name | Role | Phone | + +------+ + | Pedrito Gutierrez MD | PCP | | + +------+ + Encounter Details +--------+ + + + + | Date | Type | Department | Care Team | Description | +--------+ + + + + | 11/24/ | Respiratory | | Other, Faculty | | | 2003 | | | [phone] | | | | Therapy-[facility] | | | | | | nned | | | | +--------+ + + [...]
--- OUTSIDE RECORDS SUMMARY | ~2020-01-25 | XMS | Encounter Summary ---
Demographics + + + | Address | [address] | | | [place] [address] | + + + | Home Phone [...] | + + +---------+ + | Marco Antoino Wells | ECON | Unknown | | + + +---------+ + Care Team Providers + +------+ + | Care Electrical Engineering Manager Name | Role | Phone | [...] as of this encounter Progress Notes Interface, Air Traffic Supervisor In - 01/12/2005 8:09 AM PDT [id number] [facility] Date: 10/23/2003 Clinic: Ms. [...] ahead. Chris Padgett M.D. CD / HS [id number] / [id number] / [id number] / [id number] documented i n this encounter Plan of Treatment Not on filedocumented as of this encounter Visit Diagnoses Not on filedocumented in this encounter"
--- OUTSIDE RECORDS SUMMARY | ~2020-01-25 | XMS | Encounter Summary ---
Demographics + + + | Address | [address] | | | [place] [address] | + + + | Home Phone [...] Providers + +------+ + | Care Coater Hand Name | Role | Phone | [...] + | 05/25/ | Refill | [facility] | Alanis, | Medication Refill | | 2016 | | MEDICINE [address] | MD [place] | | | | | [place], | [address] [facility] | | | | | [place] [address] | [place] [address] | | | | | [phone] | [phone] | | | | | | | [...] | | | | | [place] [address] | | | | | | [phone] | | | | | | | | +--------+---------+ + + + documented as of this encounter Visit Diagnoses Not on filedocumented in this encounter"
--- OUTSIDE RECORDS SUMMARY | ~2020-01-25 | XMS | Encounter Summary ---
Demographics + + + | Address | [address] | | | [place] [address] | + + + | Home Phone [...] Providers + +------+ + | Care Senior Net Application Developer Name | Role | Phone | + +------+ + | Maria Esther Cintron MD | PCP | | + +------+ + Encounter Details +--------+ + + + + | Date | Type | Department | Care Team | Description | +--------+ + + + + | 04/19/ | Telephone | [facility] | Chris Padgett, | | | 2007 | | [place] [address] | [address] [facility] | | | | | Bethanie Mailcode: CH4S | Naeem Mcrae | | | | | [facility] | [place], [place] | | | | | and Healing, | [address] | | | | | Building , 6th | [phone] | | | | | Floor [place], [place] | | | | | | [address] | | | | | | [phone] | | | +--------+ + + + [...]
--- OUTSIDE RECORDS SUMMARY | ~2020-01-25 | XMS | Encounter Summary ---
Demographics + + + | Address | [address] | | | [place] [address] | + + + | Home Phone [...] Team Providers + +------+ + | Care Pool Technician Name | Role | Phone | + +------+ + | Pedrito Gutierrez MD | PCP | | + +------+ + Encounter Details +--------+ + + + + | Date | Type | Department | Care Team | Description | +--------+ + + + + | 02/22/ | Transcribed | | Dictation, Other | Transcribed | | 2000 | | | | | +--------+ + [...] as of this encounter Progress Notes Interface, Administration Professional In - 03/26/2006 1:05 AM [facility] [place] [address] [place], [place] [address] or February 22, 2001 Pedrito Gutierrez M.D. [facility] [address] [place] [address] RE: BELINDA MEEHAN MR #: [id number] Gutierrez: Thank you very much for referring Belinda Vasquez to see me in the Endocrinology Clinic on February 18, 2001, for further evaluation of an elevated parathyroid concentration. As of October 22, 2000, her serum intact, PTH concentration was mildly elevated at 62 pg/mL (normal 11 to 54) in association with a serum calcium concentration that was normal at 9.5 mg/dL. Her serum magnesium concentration was normal at 2.1 mg/dL. Her serum phosphorus concentration was very slightly elevated at 4.8 mg/dL. Her thyroid hormone measurements were normal. A serum albumin concentration was not available. To my knowledge, she has not had nephrocalcinosis, but she does complain of having bone pain "all over" for about 2 years, and she also has a history of symptoms compatible with either gastritis or gastroesophageal reflux disease. Her family history is interesting and that she believes her mother had a parathyroid disorder and her 20-year-old son, Marco Antonio Wells, also reportedly has a parathyroid disorder. However, her son also has renal failure which is commonly associated with a secondary or tertiary hyperparathyroidism. The patient also seemed to be somewhat confused by the distinction between the pituitary, parathyroid, and thyroid. She was unable to give any details that would suggest a familial multiple endocrine neoplasia pattern. Her mother, maternal grandmother, and maternal aunt have all apparently had thyroid surgery, but none of them were known to have thyroid cancer. Her cousin's son has what appears to be type 2 diabetes. Her mother had a history of hypothyroidism, what sounds like osteoporosis and possible osteomalacia and numerous bone fractures resulting in her about 5 months ago, at the age of 64. The patient reportedly has a cousin who had some type of thyroid cancer, but this diagnosis seems uncertain. Other than the cousin's son who has diabetes, there are no other known pancreatic problems in this family. 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 She also had a tonsillectomy and adenectomy done as a child. 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 Her medications include the following 1. Inderal 80 mg p.o. b.i.d. 2. Estraderm patches, possibly 0.05 mg twice weekly. 3. Flexeril 10 mgp.o. p.r.n. 4. Albuterol inhaler p.r.n. 5. Darvocet 650 mg p.r.n. dental work. 6. Ibuprofen 800 mg p.o. t.i.d. p.r.n. joint discomfort. 7. Axid 300 mg p.o. q.d. SHE IS ALLERGIC TO PENICILLIN, REPORTEDLY ALLERGIC TO ASPIRIN, AND CODEINE. Physical examination, her weight was 300.1 pounds, and her height was 5 feet 10 inches which gave her a severely elevated body mass index of 43.3 kilogram per meter square. Her blood pressure was excellent at 110/70 mmHg, and her heart rate was 56 beats per minute and regular. She had evidence of acanthosis nigricans, which was indicative of insulin resistance. She had blindness in her left eye without reactivity to light and decrease in retinal vascularity. On the right side, on an undilated exam, I did not see significant hemorrhages or exudates. She had poor dentition including gingivitis and periodontal disease. Her neck exam showed a normal thyroid without palpable nodules or associated adenopathy. Her lungs were clear to auscultation with only a few wheezes. Her cardiac and abdominal examinations were within normal limits. She did not really have significant bone tenderness. Her extremities showed only a trace of pretibial edema. Laboratory studies done on February 18, 2001, included a complete metabolic set, which showed a semi-fasting serum glucose concentration that was increased at 115 mg/dL. This finding, in combination with her physical finding of acanthosis nigricans indicates that she probably has impaired glucose tolerance and high risk of type 2 diabetes. Her serum TSH concentration was normal at 2.50 microunits per milliliter. Her serum calcium concentration was 9.3 mg/dL in combination with a normal albumin concentration of 3.9 g/dL. Her intact parathyroid hormone concentration was very mildly elevated at 67 pg/mL (normal 10.0 to 65). Her renal function was within normal limits with a BUN of 11 mg/dL and creatinine 0.7 mg/dL. A 25-hydroxy vitamin D measurement was ordered, but it does not appear that this testing has been done or will be completed. Therefore, she will need to have this measurement determined when she follows up here or through your clinic. She also needs to perform a 24-hour urine collection for measurement of calcium excretion. In summary, it is most likely that she has secondary hyperparathyroidism, possibly due to vitamin D deficiency. The most accurate method for assessing vitamin D status is by measurement of a serum 25-hydroxy vitamin D concentration. As indicated above, she will need to have this test performed in your clinic. In addition, it will be helpful to obtain a 24-hour urine collection for determination of calcium excretion to help substantiate this diagnosis. There is a remote possibility that she has early hyperthyroidism, but at this point, she has normal serum calcium concentrations and therefore does not require further intervention if her diagnosis is, in fact, primary hyperparathyroidism. If she has primary hyperparathyroidism, it would be anticipated that her 24-hour urinary calcium excretion would be elevated. However, a low 24-hour urinary calcium measurement would be suggestive of vitamin D deficiency, possibly in combination with the familial disorder, familial hypocalciuric hypercalcemia. However, she does not have hypercalcemia which is a common feature of familial hypocalciuric hypercalcemia. I believe, she would like to follow up on most of these issues through your clinic. However, I would be happy to see her again in the next 2 or 3 months to further evaluate her condition. In addition, it will be important to follow up on the pending laboratory studies. As indicated above, if all of her results are normal at the present time, it would be prudent to recheck her serum calcium and intact PTH concentrations in another 2 months to see if there is any progression. Thank you again for allowing me to participate in the care of this patient. Please feel free to contact me if you have any other questions, concerns, or suggestions regarding this patient. Sincerely, Issac Meeks M.D. training and development officer Division of Endocrinology, Diabetes, and Clinical Cytology Supervisor, Metabolic Disorders Clinic PBD / HS [id number] / [id number] / [id number] / [id number] signed by Interface, Administration Professional In at 03/26/2006 1:05 AM PDTdocume nted in this encounter Plan of Treatment Not on filedocumented as of this encounter Visit Diagnoses Not on filedocumented in this encounter
--- OUTSIDE RECORDS SUMMARY | ~2020-01-25 | XMS | Encounter Summary ---
Demographics + + + | Address | [address] | | | [place] [address] | + + + | Home Phone [...] Providers + +------+ + | Care Administration Dean Name | Role | Phone | + +------+ + | Sulaiman Carrera MD | PCP | | + +------+ + Encounter Details +--------+ + + + + | Date | Type | Department | Care Team | Description | +--------+ + + + + | 09/14/ | Ancillary | Registration [address] | Caitlin Rivera, | | | 2006 | Registratio | [address] | [address] | | | | n | [address] Mailcode: RPB[address] | | | | | | [place], [place] | | | | | | [address] | | | | | | [phone] | | | +--------+ + + + [...] X-RAY CHEST 2 VIEW | Routin | 09/14/2006 | | Results for this | | | e | 3:33 PM | | procedure are in the | | | | PDT | | results section. | + +--------+ + + + | TSH | Routin | 09/14/2006 | | Results for this | | | e | 2:54 PM | | procedure are in the | | | | PDT | | results section. | + +--------+ + + + documented in this encounter Results CHEST 2 VIEW (09/14/2006 3:33 PM PDT) + + + + + + | Component | Value | Ref Range | Performed | Pathologist | | | | | At | Signature | + + + + + + | CHEST, 2 | Radiologist 1: BLOSSOM, | | | | | [place] | Joanna GOODWINEXAM: [place] | | | | | STEREO | and lateral chest. | | | | | | COMPARISON: 10/23/03. | | | | | | FINDINGS: The cardiac | | | | | | and mediastinal contours | | | | | | are normal. Thelungs | | | | | | are clear. There is no | | | | | | pleural | | | | | | effusion.IMPRESSION: | | | | | | Normal. | | | | + + + + + + + + | Specimen | + + | | + + + +---------+ + + | Performing | Address | City/State/Zipcode | Phone Number | | Organization | | | | + +---------+ + + | [facility] | | | | | RADIOLOGY | | | | + +---------+ + + TSH-THYROID STIM HORMONE (09/14/2006 2:54 PM PDT) + + + + + + | Component | Value | Ref Range | Performed | Pathologist | | | | | At | Signature | + + + + + + | TSH | 7.70 (H)Comment: Test | 0.28 - 5.00 | | | | | performed by [facility] | uIU/ml | | | | | [facility] | | | | | | [facility]. | | | | + + + + + + + + | Specimen | + + | | + + + + + + + | Performing | Address | City/State/Zipcode | Phone Number | | Organization | | | | + + + + + | [facility] | [address] | [place] [address] | | | LABORATORY | | | | + + + + + documented in this encounter Visit Diagnoses Not on filedocumented in this encounter"
--- OUTSIDE RECORDS SUMMARY | ~2020-01-25 | XMS | Encounter Summary ---
Demographics + + + | Address | [address] | | | [place] [address] | + + + | Home Phone [...] Team Providers + +------+ + | Care Rental Car Porter Name | Role | Phone | + [...] | | sciatica | [address] | [address] Phone: | | | | | | [place], | [phone] | | | | | | [place] | Fax: | | | | | | [address] | [phone] | | | | | | Phone: | | | | | | | [phone] | | | | | | | Fax: | | | | | | | [phone] | | +--------+ + + + + [...] + + | 07/15/ | Telephone | [facility] | Alanis, | Medication Orders | | 2018 | | MEDICINE [address] | MD John | | | | | [place], | [address] | | | | | [place] [address] | [place] [address] | | | | | [phone] | [phone] | | | | | | | [...] referred again to physiatry Dr. [facility]. Please advise elep martell Encounter - John Thapa MD - 07/16/2018 11:51 AM PSTRefilled.Veto lentz signed by John Thapa MD at 07/16/2018 11:51 AM PSTTelephone Encounter - Ayla Quezada - 07/16/2018 11:33 AM PSTPatient called in to check the status of her medication refill. Please advise [phone] signed by Ayla Quezada at 07/16/2018 11:34 AM PSTTelephone Encounter - Siri Cantorher Malissa - 07/15/2018 2:37 PM PSTPa kenisha called [...] | | | | | [place] [address] | | | | | | [phone] | | | | | | | [...]
--- OUTSIDE RECORDS SUMMARY | ~2020-01-25 | XMS | Encounter Summary ---
Demographics + + + | Address | [address] | | | [place] [address] | + + + | Home Phone [...] Providers + +------+ + | Care Senior Sales Representative Name | Role | Phone | + +------+ + PCP | Unavailable | + +------+ + Encounter Details +--------+ + + + + | Date | Type | Department | Care Team | Description | +--------+ + + + + | 07/30/ | Hospital | [facility] | Ulysses Genao MD | | | 2011 - | Encounter | MED CTR OP [facility] | [address] | | | | | [address] [place] | [address] [place] | | | / | | [place] [address] | [place] [address] | | | 2011 | | [phone] | [phone] | | | | | | | [...] | | | | | [place] [address] | | | | | | [phone] | | | | | | | | +--------+---------+ + + + documented as of this encounter Visit Diagnoses Not on filedocumented in this encounter"
--- OUTSIDE RECORDS SUMMARY | ~2020-01-25 | XMS | Encounter Summary ---
Demographics + + + | Address | [address] | | | [place] [address] | + + + | Home Phone [...] Team Providers + +------+ + | Care Eligibility Consultant Name | Role | Phone | [...] as of this encounter Progress Notes Interface, Drapery Cutter Machine In - 08/19/2005 2:05 AM PST [id number] [facility] Date: 07/29/2005 Clinic: Hematology [...] pursue aggressive iron supplementation. Lukasz Sellers M.D. [place] boatman [employer] / SHARIF [id number] / [id number] / [id number] / [id number] cc: Pedrito Gutierrez M.D. [address] [place] [address] Electronically signed by Lukasz Sellers 08-18-2005 01:28:12 PM documented i n this encounter Plan of Treatment Not on filedocumented as of this encounter Visit Diagnoses Not on filedocumented in this encounter"
--- OUTSIDE RECORDS SUMMARY | ~2020-01-25 | XMS | Encounter Summary ---
Demographics + + + | Address | [address] | | | [place] [address] | + + + | Home Phone [...] Providers + +------+ + | Care Air And Water Filler Name | Role | Phone | [...] Rd | Urologist) | | | | [facility] | [place], [place] | | | | | and [place], | [address] | | | | | [facility] | [phone] | | | | | [place], [place] | | | | | | [address] | | | | | | [phone] | | | +--------+ + + + [...]
--- OUTSIDE RECORDS SUMMARY | ~2020-01-25 | XMS | Encounter Summary ---
Demographics + + + | Address | [address] | | | [place] [address] | + + + | Home Phone [...] Team Providers + +------+ + | Care Card Cleaner Name | Role | Phone | [...] ANP | | | | | [facility] | | | | | | [address] | | | | | | Center for [facility] | | | | | | and Healing, | | | | | | | | | | | | Floor [place], [place] | | | | | | [address] | | | | | | [phone] | | | +--------+ + + + [...]
--- OUTSIDE RECORDS SUMMARY | ~2020-01-25 | XMS | Encounter Summary ---
Demographics + + + | Address | [address] | | | [place] [address] | + + + | Home Phone | | + + + | Preferred Language | Unknown | + + + | Marital Status | | + + + | Methodist Affiliation | 1001 | + + + | Race | Unknown | + + + | Ethnic Group | Unknown | + + + Author + + + | Author | [facility] | | | and [place] | + + + | Organization | [facility] | | [...] Team Providers + +------+ + | Care Hood Fitter Name | Role | Phone | [...] | | | | [place], | [address] Phone: | | | | | | [place] | [phone] | | | | | | [address] | Fax: | | | | | | Phone: | [phone] | | | | | | [phone] | | | | | | | Fax: | | | | | | | [phone] | | +--------+ + + + + [...] | | | Services | y | German[facility] | Emmy[place]Jefft | EMD [address] | | | Required | | disease, | i, | [address] | | | | | unspecified | [place] | [address] | | | | | laterality | , [address] | [place], | | | | | | [address] | [place] [address] | | | | | | [place], | Phone: | | | | | | [place] | [phone] | | | | | | [address] | Fax: | | | | | | Phone: | [phone] | | | | | | [phone] | | | | | | | Fax: | | | | | | | [phone] | | + + + + + [...] + + | 10/16/ | Tele[facility] | [facility] | Alanis, | Referral (Follow up) | | 2019 | | MEDICINE [address] | MD [place] | | | | | [place], | [address] [place] | | | | | [place] [address] | [place] [address] | | | | | [phone] | [phone] | | | | | | | [...] Miscellaneous Notes Telephone Encounter - Teresa Mitchell Exchange Teller - 10/17/2019 11:23 AM Emmie nt is scheduled with Dr. Genao and [...] | | | | | [place] [address] | | | | | | [phone] | | | | | | | | +--------+---------+ + + + + + +--------+ + + | Name | Type | Priori | Associated Diagnoses | Order Schedule | | | | ty | | | + + +--------+ + + | * [facility] | Outpatient | Routin | Meniere's disease, [...]
--- OUTSIDE RECORDS SUMMARY | ~2020-01-25 | XMS | Encounter Summary ---
Demographics + + + | Address | [address] | | | [place] [address] | + + + | Home Phone [...] Team Providers + +------+ + | Care System Admin Name | Role | Phone | + [...] Lab findings, | | 2007 | | [place] [address] | [address] | teaching, guidance, | | | | Ave Mailcode: [facility] | [address] | and counseling (labs | | | | [facility] | [place], [place] | done on 07/01/07) | | | | and Healing, | [address] | | | | | [facility] | [phone] | | | | | [place], [place] | | | | | | [address] | | | | | | [phone] | | | +--------+ + + + [...]
--- OUTSIDE RECORDS SUMMARY | ~2020-01-25 | XMS | Encounter Summary ---
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 Her IGF-1 was low [...] 3 months. Caitlin Rivera M.S., F.N.P. / [id number] / [id number] / [id number] / cc: Pedrito Gutierrez M.D. [address] [facility] [place] [address] documented i n this encounter Plan of Treatment Not on filedocumented as of this encounter Visit Diagnoses Not on filedocumented in this encounter"
--- OUTSIDE RECORDS SUMMARY | ~2020-01-25 | XMS | Encounter Summary ---
Demographics + + + | Address | [address] | | | [place] [address] | + + + | Home Phone [...] Providers + +------+ + | Care Flow Specialist Name | Role | Phone | [...] + + | 01/01/ | Refill | [facility] | Alanis, | Medication Refill | | 2017 | | MEDICINE [address] | MD [place] | | | | | [place], | [address] [facility] | | | | | [place] [address] | [place] [address] | | | | | [phone] | [phone] | | | | | | | [...] | | | | | [place] [address] | | | | | | [phone] | | | | | | | | +--------+---------+ + + + documented as of this encounter Visit Diagnoses Not on filedocumented in this encounter"
--- OUTSIDE RECORDS SUMMARY | ~2020-01-25 | XMS | Encounter Summary ---
Demographics + + + | Address | [address] | | | [place] [address] | + + + | Home Phone [...] Team Providers + +------+ + | Care Breast Trimmer Name | Role | Phone | [...] 2016 | | NEUR[facility] [place] | [address] | | | | | [address] [facility], | [place] [address] | | | | | [address] [place] | [place] | | | | | [place] [address] | [address] | | | | | [phone] | | | +--------+ + + + [...] | | | | | [address] [facility] | | | | | | [place] [address] | | | | | | [phone] | | | | | | | | +--------+---------+ + + + documented as of this encounter Visit Diagnoses Not on filedocumented in this encounter"
--- OUTSIDE RECORDS SUMMARY | ~2020-01-25 | XMS | Encounter Summary ---
Demographics + + + | Address | [address] | | | [place] [address] | + + + | Home Phone [...] Providers + +------+ + | Care Network Strategist Name | Role | Phone | [...] as of this encounter Progress Notes Interface, Options Advisor In - 02/17/2006 3:04 AM [facility] [place] [address] [place], [place] [address] or October 02, 2001 Pedrito Gutierrez M.D. [facility] [address] [place] [address] RE: BELINDA GALARZA MR #: [id number] Dear Dr. 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 Sincerely, Issac Meeks M.D. trauma nurse, Division of Endocrinology, Diabetes, and Clinical Sales Operations Associate, Metabolic Disorders Clinic Ph#: [phone] [facility] / [id number] / [id number] / [id number] / C: 10/13/2001 praful [id number] signed by Interface, Options Advisor In at 02/17/2006 3:04 AM [facility] umented in this encounter Plan of Treatment Not on filedocumented as of this encounter Visit Diagnoses Not on filedocumented in this encounter"
--- OUTSIDE RECORDS SUMMARY | ~2020-01-25 | XMS | Encounter Summary ---
Demographics + + + | Address | [address] | | | [place] [address] | + + + | Home Phone [...] Team Providers + +------+ + | Care Willow Machine Operator Name | Role | Phone | + +------+ + | Pedrito Gutierrez MD | PCP | | + +------+ + Encounter Details +--------+---------+ + + + | Date | Type | Department | Care Team | Description | +--------+---------+ + + + | 07/30/ | Office | [facility] | Eliezer Ruano, | Abdominal Pain | | 2006 | Visit | [place] [address] | [address] | (Primary Dx) | | | | Ave Mailcode: [facility] | [address] | | | | | Center for [facility] | [facility] [place] | | | | | and Healing, | [address] | | | | | [facility] 1, 6th | [phone] | | | | | Floor [place], [place] | | | | | | [address] | | | | | | [phone] | | | +--------+---------+ + + + [...] [facility] [address] [facility], 6th [place] [address] alena Palacio - 07/30 4:09 PM PSTS: [...]
--- OUTSIDE RECORDS SUMMARY | ~2020-01-25 | XMS | Encounter Summary ---
Demographics + + + | Address | [address] | | | [place] [address] | + + + | Home Phone [...] Providers + +------+ + | Care Senior Linux Engineer Name | Role | Phone [...]
--- OUTSIDE RECORDS SUMMARY | ~2020-01-25 | XMS | Encounter Summary ---
[...] Providers + +------+ + | Care Wick Tender Name | Role | Phone | [...] | 2006 | Visit | [facility] [employer] | MD Darrion,PhD [address] | (Primary Dx) | | | | for Health and | [address] | | | | | Healing [address] | [place], [place] | | | | | [facility] | [address] | | | | | Health and Healing, | [phone] | | | | | [facility] | | | | | | Floor [place], [place] | | | | | | [address] | | | | | | [phone] | | | +--------+---------+ + + + [...] (ciprofloxacin) Tramadol Morphine IM ( only in [facility]) made gut pain worse REVIEW OF SYSTEMS: [...] normal limits except as noted. RIGHT LEFT [place] Crepitation J Sign Apprehension LIGAMENTS: Within normal [...] are not effective. Angel Morales M.D., Ph.D. Product Promoter Sales Person, Surgical Gasoline Service Attendant Orthopedics & Cartilage Reconstruction Surgery Department of Orthopedics [email or web address] documented in this encou nter Plan of Treatment Not on filedocumented as of this encounter Visit Diagnoses + + | Diagnosis | + + | Osteoarthrosis, unspecified whether generalized or localized, lower leg - Primary | + + documented in this encounter
--- OUTSIDE RECORDS SUMMARY | ~2020-01-25 | XMS | Encounter Summary ---
Demographics + + + | Address | [address] | | | [place] [address] | + + + | Home Phone [...] Team Providers + +------+ + | Care Movie Theater Usher Name | Role | Phone | + [...] | at [place] | [facility] | | | | | [address] | [place] [address] | | | | | [address] | | | | | | [place], 2nd floor | | | | | | [place], [place] | | | | | | [address] | | | | | | [phone] | | | +--------+ + + + [...]
--- OUTSIDE RECORDS SUMMARY | ~2020-01-25 | XMS | Encounter Summary ---
Demographics + + + | Address | [address] | | | [place] [address] | + + + | Home Phone [...] Team Providers + +------+ + | Care Deoiling Machine Operator Name | Role | Phone [...]
--- OUTSIDE RECORDS SUMMARY | ~2020-01-25 | XMS | Encounter Summary ---
Demographics + + + | Address | [address] | | | [place] [address] | + + + | Home Phone [...] Team Providers + +------+ + | Care Academic Support Assistant Name | Role | Phone | [...] [address] | | | | | [facility] | [place], [place] | | | | | and [place], | [address] | | | | | [facility] , | [phone] | | | | | Floor [place], [place] | | | | | | [address] | | | | | | [phone] | | | +--------+ + + + [...]
--- OUTSIDE RECORDS SUMMARY | ~2020-01-25 | XMS | Encounter Summary ---
Demographics + + + | Address | [address] | | | [place] [address] | + + + | Home Phone [...] Team Providers + +------+ + | Care .Net Programmer Name | Role | Phone | + +------+ + PCP | Unavailable | + +------+ + Encounter Details +--------+ + + + + | Date | Type | Department | Care Team | Description | +--------+ + + + + | 07/28/ | Office | | Report, Outpatient | [...] as of this encounter Progress Notes Interface, Customer Care Coordinator In - 01/11/2005 6:26 PM PDT Referred From and Faxed to: Dwaine Al M.D. Referred To: Stroke Clinic CONSULTING PHYSICIAN: Jeancarlos Sigala M.D. MR#: [id number] Patient: Belinda Meehan CONSULTATION DATE: 07/28/2003 REASON FOR REQUESTED CONSULTATION: Preoperative stroke evaluation. HISTORY OF PRESENT ILLNESS: Ms. Meehan is a pleasant 43-year-old right hand dominate woman with a background history of long-standing migraine headaches, borderline diabetes mellitus, fibromyalgia, hypertension, coronary artery disease, and morbid obesity who presents as a new patient to the Stroke clinic for evaluation of her left eye blindness. History was obtained from the patient, [facility] medical records, and two magnetic resonance scans of the brain. Ms. Meehan says that she has suffered from migraine headaches for many decades. In approximately February 1999 she went to bed with one of her entirely typical migraine headaches. She awoke with complete blindness the left eye. There was no pain associated with this blindness. She also had no other neurologic symptoms at that time or indeed at any other time. In fact, she adamantly denies experiencing any neurologic symptoms whatsoever with her headaches. She also denies any other ophthalmologic worrisome symptoms in the contralateral eye, any proceeding visual symptoms in the left eye, or any neurologic symptoms between headache attacks either at that time or subsequently. She underwent an MRI of the brain shortly after this event. She also underwent a followup MRI in the more recent past because one of her doctors was concerned about her ongoing migraine headaches. To the best of her knowledge, neither of these brain scans revealed any abnormalities. She does not recall undergoing a carotid Doppler scan at any point. She has been seen her graphics coordinator in [facility], Dr. Lc Renteria, who by her report has told her that her left optic nerve shut down. She has always been under the impression that this occurred because of a cerebrovascular accident. She denies any transient visual obscuration or pulsatile tinnitus at any point. She also denies any episodes of double vision, difficulty swallowing, focal weakness, or focal numbness. She does complain of kiesha imbalance, but on further questioning it appears as if this is related to her chronic pain rather than imbalance per jamshid. PAST MEDICAL HISTORY: 1. Borderline diabetes mellitus. 2. Hypertension. 3. Morbid obesity. 4. Common migraine headaches. 4.1. Occur once to twice per month currently. Characterized by nausea vomiting, photo-and phonophobia. There is not no preceding aura. Headache attacks last between hours and days. 4.2. Use Inderal for prophylaxis as well as Percocet for abortive therapy. 4.3. Imitrex and other triptines have been avoided due to fear of cerebrovascular disease. 5. Coronary artery disease. 5.1. Status post myocardial infarction related to a blood transfusion in the early . 6. Fibromyalgia. MEDICATIONS: 1. Inderal 160 mg b.i.d. 2. Diclofenac 75 mg b.i.d. 3. Triamterene hydrochlorothiazide. 4. 650 mg two tablets p.r.n. 5. Axid 300 mg q.d. 6. Amitriptyline 25 mg q.d. 7. Flexeril 10 mg p.r.n. 8. Aspirin 81 mg q.d. 9. Phenergan suppositories p.r.n. 10. Multivitamins. 11. Calcium. ALLERGIES: PENICILLIN, CODEINE, KEFLEX, SULFA, and CLINDAMYCIN. She indicates that PENICILLIN and CODEINE stop my heart. FAMILY HISTORY: Notable for hypertension, coronary vascular disease, coronary artery disease, and fibromyalgia. SOCIAL HISTORY: Patient lives in [facility] with her eldest son. She supports herself on Social Security Disability. HABITS: Currently smokes one pack of cigarettes every four to five days. She smoked larger quantities for 20 plus years. Ethanal, rare. REVIEW OF SYSTEMS: Patient denies any recent chest pain, shortness of breath, nausea, vomiting, double vision, or other neurological symptoms as mentioned in the HPI above. She does endorse ongoing diffuse musculoskeletal pain and has used a crutch since September 2002. She has not used oral contraceptives for many decades. PHYSICAL EXAMINATION: VITAL SIGNS: Weight 327 pounds. Blood pressure 114/74, pulse 68. GENERAL: Patient is pleasant, morbidly obese, in no acute distress. She does have a right-sided Italian crutch which she uses to enter and exit the room. HEENT: Oropharynx clear without erythema, exudate, or lesions. LUNGS: Clear to auscultation bilaterally. CARDIOVASCULAR: Regular rate and rhythm without murmurs, rubs, or gallops. There are no carotid bruits. ABDOMEN: Obese, soft, nontender, nondistended with normoactive bowel sounds. EXTREMITIES: No clubbing, cyanosis, or edema. No ossicle examination. MENTAL STATUS: Recent and remote memory as well as attention and concentration appears to be rough within normal limits. NEUROLOGIC: Cranial nerve examination: Pupils are symmetric in size. She has an afferent pupillary defect OS. Dilated funduscopic examination reveals severe optic nerve head pallor OS. No other retinal abnormalities noted. Extraocular motions intact. There is no evidence of pathological nystagmus or intranuclear ophthalmitic plegia. She is able to elevate her brows, smile, protrude tongue, elevated palate normally and symmetrically. Shrug is 5/5 bilaterally. Visual payan are somewhat limited due to complete blindness in the left eye. Motor examination: Normal tone and bulk throughout. Confrontational strength testing is mildly limited by pain. She does appear to have 5/5 strength in all major muscle groups including deltoid, biceps, triceps, wrist extensors, finger extensors, hand scrapper, hip flexors and extensors, and ankle, plantar, and dorsiflexors as well as knee flexors and extensors. There is no pronator drift. Reflexes are 2+ and symmetrical at the biceps, triceps, brachioradialis, patellar, and ankle regions. Toes are downgoing to plantar stimulation. Light touch and tuning fork is within normal limits in the lower extremities. Kvyaog-fp-vpxg and fine finger movements are within normal limits bilaterally. Gait is mildly antalgic bilaterally and slowed. She has some difficult with tandem gait but Romberg is negative. DATABASE: Two MRI scans of the brain were reviewed. One from May 1999 and the other from 2000. Both of these scans demonstrate a normal appearing brain with no evidence of intraparenchymal or extra axial abnormalities. Specifically no evidence of periventricular or other white matter changes consistent either with ischemia or multiple sclerosis. DIAGNOSIS: 1. Unexplained left optic neuropathy. 2. Common migraine headaches. DISCUSSION: The cause of Ms. Meehan' blindness in the left eye is opaque at present She does not endorse other symptoms nor is her MRI suggestive of an ongoing demyelinating process like multiple sclerosis. At this last juncture, identifying and infectious etiology of her optic neuritis would be quite difficult. A vascular etiology cannot be excluded. There was no evidence on history or neurological examination today to suggest idiopathic intracranial hypertension, though epidemiologically, she is in a relatively high risk group. PLAN/RECOMMENDATIONS: 1. Continue aspirin 81 mg p.o. q.d. for now. 2. Carotid Doppler ultrasound. 3. Referral to Dr. Dwaine Amin (neuroophthalmology). 4. Check SANIA for completeness. Patient was staffed with and personally examined by Dr. Indira Bender who agrees with the impression and plan. Thank you very much for this interesting consultation. Please do not hesitation to contact me with any further questions or concerns. Jeancarlos Sigala M.D. Indira Bender D.O. [phone]:[phone] FAX TO: Dwaine Al M.D., General Surgery Dwaine Aimn M.D., Neurophthalmology cc: CRYSTAL CARTER M.D. [facility] [address] [facility]. [facility] [place] [id number] signed by Interface, Customer Care Coordinator In at 2004 6:26 PM PDTdocumented in this encounter Plan of Treatment Not on filedocumented as of this encounter Visit Diagnoses Not on filedocumented in this encounter"
--- OUTSIDE RECORDS SUMMARY | ~2020-01-25 | XMS | Encounter Summary ---
Demographics + + + | Address | [address] | | | [place] [address] | + + + | Home Phone [...] Team Providers + +------+ + | Care Felting Machine Operator Helper Name | Role | [...] | | | Metabolism | bypass | [address] | [address] | | | | | Hypovitamino | [address], | [address] | | | | | sis D [address] | [address] | [place], [place] | | | | | nutritional | [place] | [address] | | | | | deficiency | [address] | Phone: | | | | | Other | Phone: | [phone] | | | | | protein-jose manuel | [phone] | Fax: | | | | | nick | Fax: | [phone] | | | | | malnutrition | [phone] | | | | | | Weight | | | | | | | gain | | | | | | | Procedures | | | | | | | CONSULT TO | | | | | | | ENDO | | | | | | | [address] | | | | | | | [address] | | | +--------+--------+ + + + [...] [facility] | [place], [place] | Dx); Hypothyroidism; | | | | [address] | [address] | Essential | | | | [address] | [phone] | hypertension 401.9; | | | | [facility] | | Secondary | | | | Physician's | | hyperparathyroidism, | | | | [facility] [place], | | non-renal (HCC) | | | | [place] [address] | | | | | | [phone] | | | +--------+---------+ + + + [...] 32.9 (L) RDW 11.5-15.0 % 12.4 PLATELET [id number] K/cu mm 205 IRON 30-160 ug/dL 114 [...] like the sleeve but was told by [facility] ELECTRICIAN SUBSTATION SUPERVISOR that it is not an option, recommended pharmacologic weight mgmt. Gets primary care in [place], [place] (Maria Esther Cintron). Weight leveled out [...] replacement 08/2007 right knee Lumbar fusion 05/2008 L5-H6xmnmin with bone spur removals Appendectomy Cholecystectomy section [...] Hives Mainly in the legs Clindamycin Codeine Ejpyozj-Ycttxxzmoi-Bvf-Caff Balance problems Fioricet W/Codeine (Qrqisyfjpp-Tlqcwwnzez-Bni-Cod) Keflex (Cephalexin) Morphine IM ( only in [facility] [...] Ly Allred MD R-2, Internal Medicine Pager: [phone] documented in this enco unter Plan of [...] | | If you are | | [place] | | | | screening for diabetes: [...] + | [facility] - | [address] | [place] [address] | | | [place] | | | [...] [facility] | [address] | [place] [address] | | | SERVICES, SPECIAL | [place] [...] | + + + + + | [facility] | [address] | [place] [address] | | | SERVICES, CORE | PARK [...] | + + + + + | [facility] | [address] | [place] [address] | | | SERVICES, SPECIAL | KE[place]AN [...] by | | | | | | Incipient,[address] | | | | | | Abdiaziz Morales, [facility],[place] | | | | | | [address] | | | | | | [phone].[employer]. | | | | | | moab [...] [facility] | [address] | [place], [place] | | | UN[facility] | | [address] | | + + + + + [...] | + + + + + | [facility] | [address] | [place] [address] | | | SERVICES, SPECIAL | PARK [...] + | [facility] | [address] | [place] [address] | | | [place] | | | [...]
--- OUTSIDE RECORDS SUMMARY | ~2020-01-25 | XMS | Encounter Summary ---
Demographics + + + | Address | [address] | | | [place] [address] | + + + | Home Phone [...] Team Providers + +------+ + | Care Plywood Patcher Name | Role | Phone | [...] | Pain | Diagnoses | Miracle, | [place], | | | | Management | LBP (low | NIHARIKA Jean | Lukasz Rhodes, PhD | | | | | back pain) | [address] | [address] | | | | | DJD | [address] | Ave | | | | | (degenerativ | [place], [place] | [place] | | | | | e joint | [address] | [address] | | | | | disease) of | | Phone: | | | | | knee Knee | | [phone] | | | | | pain Major | | Fax: | | | | | depressive | | [phone] | | | | | disorder, | [...] 06/21/ | Office | [facility] | Lukasz Charles, | Major Depressive | | 2008 | Visit | [address] | PhD [address] | Disorder, Recurrent | | | | [facility] | [place], [place] | Episode, Mild (HCC); | | | | and Healing, | [address] | LBP (Low Back | | | | | [phone] | Pain); Migraine | | | | Floor [place], [place] | | Headache | | | | [address] | | | | | | [phone] | | | +--------+---------+ + + + [...] migraine specialist this week. She reported that [employer] has done some sewing and she found [...] benefit as she becomes more active. Diagnosis: [place] I: 1. (296.31) Major depressive disorder, recurrent, mild. 2. (309.24) Adjustment disorder with anxiety. 3. (307.89) Chronic pain disorder associated with both psychological factors and a gene ral medical condition. [place] II: Deferred [place] III: abdominal pain, migraine headache, low back pain. [place] IV: low finances [place] V: GAF 55-60 Plan: return with next medical follow-up appointment. Check mood, pain, surgical recovery , relaxation, activity, distraction, eating. Ask about headache specialist, physical therap y. Continue cognitive/behavioral therapy. Total time spent with patient was approximately 45 minutes. LUKASZ CHARLES PHD [facility], [address] [place] [address] documented in this en counter Plan of [...]
--- OUTSIDE RECORDS SUMMARY | ~2020-01-25 | XMS | Encounter Summary ---
Demographics + + + | Address | [address] | | | [place] [address] | + + + | Home Phone [...] Providers + +------+ + | Care Music Minister Name | Role | Phone | [...] | | | | | | [address] | | | | | | [place], [place] | | | | | | [address] | | | | | | [phone] | | | +--------+ + + + [...]
--- OUTSIDE RECORDS SUMMARY | ~2020-01-25 | XMS | Encounter Summary ---
Demographics + + + | Address | [address] | | | [place] [address] | + + + | Home Phone [...] Team Providers + +------+ + | Care Salvage Mechanic Name | Role | Phone | + +------+ + | Pedrito Gutierrez MD | PCP | | + +------+ + Reason for Visit + + + | Reason | Comments | + + + | Osteopenia | fu; DEXA today | + + + Office Visit - [...] | | | | | | | [place], [place] | | | | | | | [address] | | | | | | | Phone: | | | | | | | [phone] | | | | | | | Fax: | | | | | | | [phone] | +--------+--------+ + + + + Encounter Details +--------+---------+ + + + | Date | Type | Department | Care Team | Description | +--------+---------+ + + + | 08/23/ | Office | [facility] | Beto Meeks MD | Osteopenia (Primary | | 2008 | Visit | [facility] | [address] | Dx); Hypothyroidism; | | | | [facility] | [place], [place] | Metabolic syndrome | | | | [address] | [address] | X 250.80; Essential | | | | [address] | [phone] | hypertension 401.9; | | | | [facility] | | Fibromyalgia | | | | Physician's | | syndrome 729.1 | | | | [facility] [place], | | | | | | [place] [address] | | | | | | [phone] | | | +--------+---------+ + + + [...] + + + | Blood Pressure | 110/58 | 08/24/2007 1:00 PM | | | | | PDT | | + + + + + | Pulse | 67 | 08/24/2007 1:00 PM | | | [...] + + + + | Weight | 91.5 kg (201 lb 11.2 | 08/24/2007 1:00 PM | | | | oz) | PDT | | + + + + + | Height | 175.3 cm (5' 9") | 08/24/2007 1:00 PM | | | | | PDT | | + + + + + | Body Mass Index | 29.79 | 08/24/2007 1:00 PM | | | | | PDT | | + + + + + documented in this encounter Progress Notes Beto Meeks - 08/24/2007 1:39 PM PDT Addended by: JEM SHEEHAN, MIYA B on: 08/24/2007 1:39:05 P M Modules accepted: Orders eto Meeks - 08/24/2007 1 :32 PM PDT Subjective Beilnda Meehan is a 47 y.o. female who is here for a followup visit regarding problems be low. She recovered from prior pneumonia in May after home antibiotic treatment. Exercise: PT twice weekly. Still has intermittent abdominal pain about 1-2 times weekly (it was daily last year), but it is managable now. No chest pain, chest pressure, chest discomfort, or exertional dyspnea . Dr. Gutierrez is managing her pain medications now. She'll have a right knee replacement do ne on 08/30/[address] [place] [address] Vasquez. Patient Active Problem List Diagnoses Code Metabolic syndrome X 250.80 250.80 Essential hypertension 401.9 401.9 Asthma 493.9 493.9 Fibromyalgia syndrome 729.1 729.1 Muscle pain 729.1 729.1 Impaired glucose tolerance 790.2 790.2 Iron Deficiency 275.0C Migraine Headache 346.90D Spondylosis with Myelopathy, Lumbar Region 721.42 Herniated Lumbar Intervertebral Disc L4-5 722.10H Major Depressive Disorder, Recurrent Episode, Moderate 296.32 Adjustment Disorder with Anxiety 309.24 Bilateral Knee Pain 719.46J Hypothyroidism 244.9AQ DJD (Degenerative Joint Disease) of Knee 715.96K Encounter for Long-Term (Current) Use of Opioids V58.69 Arthroplasty of the Left Knee V43.65D LBP (Low Back Pain) 724.2AF Osteopenia Active Medications as of 08/24/2007: omeprazole magnesium (PRILOSEC OTC) 20 mg Oral Tablet, Delayed Release (E.C.) take 1 tablet by mouth twice daily Oxycodone HCl 5 mg Oral Tablet take 2 tablets (10 mg) by oral route every 4-6 hours as need ed for pain Procaine HCl 1 % Injection Solution procaine 0.5% Cyanocobalamin 1,000 mcg/mL Injection Syringe 1 inj q month Multivitamin Oral Tablet 1 tab po bid Risedronate Sodium (ACTONEL) 35 mg Oral Tablet 1 tab po q week Ferrous Sulfate 325 (65) mg Oral Tablet take 1 tablet (325 mg) by oral route 3 times per da y Docusate Sodium 100 mg Oral Tablet take 1 tablet (100 mg) by oral route once daily at bedti ri as needed Oxycodone HCl (OXYCONTIN) 40 mg Oral Tablet Sustained Release 12 hr take 1 tablet (40mg) by mouth every 12 hours LEVOTHYROXINE OR takes .05mg daily Furosemide (LASIX) 80 mg OR TABS take 1 tablet (40mg) by oral route once daily POTASSIUM CHLORIDE SR 20 MEQ TAB, PARTICLES/CRYSTALS take 1 tablet (20meq) by oral route on ce daily with food CALCIUM 600 WITH VITAMIN D OR ( 400 unit of Vit D) 1 tab 4 x daily VITAMIN C 500 MG CHEWABLE TAB four times a day propranolol CR (INDERAL LA) 160 mg Oral Capsule,Sustained Action 24 hr take 1 capsule (160 mg) by oral route once daily promethazine 25 mg Oral Tablet as needed Physical Exam Blood pressure 110/58, pulse 67, height 1.753 m (5' 9"), weight 91.491 kg (201 lbs 11.2 oz) . Body mass index is 29.79 kg/(m^2). Weight increased 11 lb vs Jun 2007 Alert, NAD, mood WNL Skin unremarkable Cardiac-RRR, no murmur/S3/S4/rubs. No JVD. Pulses 2+. No bruits Abdomen: No hepatosplenomegaly, masses, or tenderness Extremities: trace pretibial edema. Prior labs Component Reference Range 07/01/2007 GLUCOSE (LAB) 60-99 mg/dL 89 BUN 6-20 mg/dL 7 CREATININE 0.6-1.1 mg/dL 0.7 TOTAL PROTEIN 6.1-7.9 g/dL 7.0 ALBUMIN (LAB) 3.5-4.7 g/dL 3.2 (L) CALCIUM (LAB) 8.5-10.5 mg/dL 9.1 BILIRUBIN TOTAL 0.3-1.2 mg/dL 0.7 ALK PHOS 42-98 U/L 99 (H) AST(SGOT) 15-41 U/L 26 SODIUM (LAB) 136-145 mmol/L 141 POTASSIUM (LAB) 3.5-5.1 mmol/L 3.8 CHLORIDE 98-107 mmol/L 105 TOTAL CO2 23-29 mmol/L 29 ALT (SGPT) 13-48 U/L 27 WHITE CELL COUNT 4.4-11.0 K/cu mm 8.8 RED CELL COUNT 4.00-5.20 M/cu mm 4.71 HEMOGLOBIN 12.0-16.0 g/dL 14.5 HEMATOCRIT 36.0-46.0 % 41.8 MCV 80.0-96.0 fL 88.6 MCHC 33.4-35.5 g/dL 34.7 RDW 11.5-15.0 % 12.4 PLATELET COUNT 150-400 K/cu mm 330 FOLATE Low: > 2.9 ng/ml 18.8 VITAMIN B12 (LAB) 180-914 pg/ml 1219 (H) PTH, SERUM 15.0-75.0 pg/mL 56.0 VITAMIN D 25 HYDROXY 20-57 ng/mL 47 Component Reference Range 02/23/2007 VITAMIN D 25 HYDROXY 20-57 ng/mL 51 TSH 0.28-5.00 uIU/ml 1.70 Assessment Belinda J Shefali is a 47 y.o. female who has medical problems noted above. BMD today is st able at hip, increased 7.9% in spine vs 06/24/06. Vit D + calcium + alendronate is working. Increased exercise after her upcoming right knee replacement also will help. Albumin is ch ronically mildly low. Plan Continue current medications Increase exercise when able RTC 6 months documented in this encounter Plan of Treatment Not on filedocumented as of this encounter Visit Diagnoses + + | Diagnosis | + + | Osteopenia - Primary Disorder of bone and cartilage, unspecified | + + | Hypothyroidism Unspecified hypothyroidism [...]
--- OUTSIDE RECORDS SUMMARY | ~2020-01-25 | XMS | Encounter Summary ---
Demographics + + + | Address | [address] | | | [place] [address] | + + + | Home Phone [...] Team Providers + +------+ + | Care Relocation Commissioner Name | Role | Phone | [...] + | 06/16/ | Clinical | [facility] | [place], | B12 deficiency | | 2020 | Support | MEDICINE [address] | MD [place] | (Primary Dx) | | | | [place], | [address] [facility] | | | | | [place] [address] | [place] [address] | | | | | [phone] | [phone] | | | | | | | [...] 02/15/ | Office | Internal Medicine | [place] | | | 2019 | Visit | | MD [place] | | | | | | [address] | | | | | | [place] [address] | | | | | | [phone] | | | | | | | [...] | | | First dose on [facility] 10/15/17 at 1215 | | | [...]
--- OUTSIDE RECORDS SUMMARY | ~2020-01-25 | XMS | Encounter Summary ---
Demographics + + + | Address | [address] | | | [place] [address] | + + + | Home Phone [...] Team Providers + +------+ + | Care Dielectric Testing Machine Operator Name | Role | Phone [...] + + | 07/28/ | Telephone | [facility] | [place], | Other | | 2019 | | MEDICINE [address] | MD [place] | | | | | [place], | [address] [facility] | | | | | [place] [address] | [place] [address] | | | | | [phone] | [phone] | | | | | | | [...] Advised to speak to neighbor or the disease case manager rn, states she has and is not get ting anywhere with them. FYI P M PSTTelephone Encounter - Susanna Boyce - 07/28/2019 4:00 PM PSTPatient called wanting t o speak to the nurse states she's not getting any rest at night. Please advise.Electronicfidel y signed by Susanna Boyce at 07/28/2019 4:01 [...] | | | | | [place] [address] | | | | | | [phone] | | | | | | | | +--------+---------+ + + + documented as of this encounter Visit Diagnoses Not on filedocumented in this encounter"
--- OUTSIDE RECORDS SUMMARY | ~2020-01-25 | XMS | Encounter Summary ---
Demographics + + + | Address | [address] | | | [place] [address] | + + + | Home Phone [...] Providers + +------+ + | Care Dairy Grazer Name | Role | Phone | + [...] of this encounter Progress Notes Interface, Customer Services Supervisor In - 02/15/2006 2:03 AM PDT [id number] GEOVANNI [place] Molly [id number] Clinic Date: 10/23/2005 Clinic: Endocrinology Subjective: Belinda [...] her back on October 06, 2005, in [place], [place]. This study showed a moderate central disk bulge at L4-L5 consistent with a herniated nucleus pulposus. There has been some discussion by her physicians in [place] about the possibility of giving her epidural [...] most recent laboratory studies were performed in [place] on July 02, 2005. At that time, [...] months. Beto Meeks M.D. PD / HS [id number] / [id number] / [id number] / cc: Joanna Arshad M.D. [address] [place] [address] Electronically signed by Beto Meeks 02-14-2006 02:02:42 AM documented i n this encounter Plan of Treatment Not on filedocumented as of this encounter Visit Diagnoses Not on filedocumented in this encounter"
--- OUTSIDE RECORDS SUMMARY | ~2020-01-25 | XMS | Encounter Summary ---
Demographics + + + | Address | [address] | | | [place] [address] | + + + | Home Phone [...] Providers + +------+ + | Care Mill Recorder Name | Role | Phone | + +------+ + | Sulaiman Carrera MD | PCP | | + +------+ + Encounter Details +--------+ + + + + | Date | Type | Department | Care Team | Description | +--------+ + + + + | 09/10/ | Ancillary | Registration 3181 | Beto Meeks MD | | | 2004 | Registratio | [facility] | [address] | | | | n | [place] Mailcode: [id number] | [place], [place] | | | | | [place], [place] | [address] | | | | | [address] | [phone] | | | | | [phone] | | | +--------+ + + + [...] | + + + + + | [facility] | [address] | [place] [address] | | | LABORATORY | | | [...] | + + + + + | [facility] | [address] | [place] [address] | | | PATHOLOGY | [address] | | | + + + + + | [facility] | [address] | [place] [address] | | | PATHOLOGY | [address] [...] + + | [facility] DEPARTMENT OF | [address] | [place] [address] | | | PATHOLOGY | [address] | | | + + + + + | [facility] DEPARTMENT OF | [address] | [place] [address] | | | PATHOLOGY | [address] [...] + + | [facility] DEPARTMENT OF | [address] | [place] [address] | | | PATHOLOGY | [address] | | | + + + + + | [facility] DEPARTMENT OF | [address] | [place] [address] | | | PATHOLOGY | [address] | | | + + + + + documented in this encounter Visit Diagnoses Not on filedocumented in this encounter"
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
--- OUTSIDE RECORDS SUMMARY | ~2020-01-25 | XMS | Encounter Summary ---
Demographics + + + | Address | [address] | | | [place] [address] | + + + | Home Phone [...] + +------+ + | Care Solar Sales Manager Name | Role | Phone | + +------+ + | Sulaiman Carrera MD | PCP | | + +------+ + Encounter Details +--------+ + + + + | Date | Type | Department | Care Team | Description | +--------+ + + + + | 08/23/ | Document-Sc | UNKNOWN DEPARTMENT | Unknown . | | | 2007 | anned | [address] | | | | | | [address] | | | | | | [place], [place] | | | | | | [address] | | | +--------+ + + + [...]
--- OUTSIDE RECORDS SUMMARY | ~2020-01-25 | XMS | Encounter Summary ---
Demographics + + + | Address | [address] | | | [place] [address] | + + + | Home Phone [...] Providers + +------+ + | Care Senior Support Engineer Name | Role | Phone [...] | | | | [address] Physician's | [place], [place] | | | | | [address] | [address] | | | | | [place], [place] | [phone] | | | | | [address] | | | | | | [phone] | | | +--------+ + + + [...]
--- OUTSIDE RECORDS SUMMARY | ~2020-01-25 | XMS | Encounter Summary ---
Demographics + + + | Address | [address] | | | [place] [address] | + + + | Home Phone [...] Providers + +------+ + | Care Sales Person Name | Role | Phone | [...] | 09/01/ | Telephone | Orthopaedics | Don Moralesnis | Other | | 2006 | | [facility] at [employer] | MD Darrion,PhD [address] | | | | | for Health and | [address] | | | | | Healing [address] | [place], [place] | | | | | e [facility] | [address] | | | | | Health and Healing, | [phone] | | | | | Building | | | | | | Floor [place], [place] | | | | | | [address] | | | | | | [phone] | | | +--------+ + + + [...]
--- OUTSIDE RECORDS SUMMARY | ~2020-01-25 | XMS | Encounter Summary ---
Demographics + + + | Address | [address] | | | [place] [address] | + + + | Home Phone [...] Team Providers + +------+ + | Care Remnants Cutter Name | Role | Phone | [...]
--- OUTSIDE RECORDS SUMMARY | ~2020-01-25 | XMS | Encounter Summary ---
Demographics + + + | Address | [address] | | | [place] [address] | + + + | Home Phone [...] Team Providers + +------+ + | Care Stiff Leg Derrick Operator Name | Role | Phone | + +------+ + | Petrona Thapa | PCP | | | MD | | | + +------+ + Reason for Visit + +--------+ + | Reason | Onset | Comments | | | Date | | + +--------+ + | Arm Pain | 02/11/ | Right Arm | | | 2017 | | + +--------+ + Encounter Details +--------+ + + + + | Date | Type | Department | Care Team | Description | +--------+ + + + + | 02/11/ | Telephone | [facility] INTERNAL | Alanis, | Arm Pain (Right Arm) | | 2017 | | MEDICINE [address] | MD Petrona | | | | | [place], | [address] [facility] | | | | | [place] [address] | [place] [address] | | | | | [phone] | [phone] | | | | | | | [...] Telephone Encounter - Maggie Montoya LPN - 02/11/2018 4:44 PM PDTSpoke to patient and arm pain has subsided, does not know why she had that pain, does not remember lifting or stainin g her arm. MRI of her right shoulder is scheduled for 02/17/18. Will call back if any worsenin g symptoms. Please advise P DTTelephone Encounter - Shalonda Mcdermott - 02/11/2018 8:55 AM PDTBrenda stated last night she has sever pain in her Right arm. She stated it lasted for about 4 hours and then faded a bi t. She would like to know what she should do if it happens again? Please adviseElectronicall y signed by Shalonda Mcdermott at 02/11/2018 8:57 AM PDTdocumented in this encounter Plan of Treatment +--------+---------+ + + + | Date | Type | Specialty | Care Team | Description | +--------+---------+ + + + | 02/15/ | Office | Internal Medicine | Alanis, | | | 2019 | Visit | | MD Petrona | | | | | | [address] [place] [address] [place] | | | | | | [place] [address] | | | | | | [phone] | | | | | | | | +--------+---------+ + + + documented as of this encounter Visit Diagnoses Not on filedocumented in this encounter"
--- OUTSIDE RECORDS SUMMARY | ~2020-01-25 | XMS | Encounter Summary ---
Demographics + + + | Address | [address] | | | [place] [address] | + + + | Home Phone [...] Providers + +------+ + | Care Metal Cut Off Saw Tender Name | Role | Phone | [...] + + | 05/29/ | Office | [facility] Comprehensive | Delfina Molina, | Chronic Abdominal | | 2005 | Visit | Pain Center at | ANP | Pain; Cervical Pain; | | | | [facility] | | Joint pain 719.40; | | | | [address] | | Depression | | | | [place] for [facility] | | | | | | and Healing, | | | | | | Building | | | | | | Floor [place], [place] | | | | | | [address] | | | | | | [phone] | | | +--------+---------+ + + + [...] [facility] in [place]. 3. Patient will be referred for a Psychology evaluation here at the [facility]. 4. Following the completion of these [...] Belinda Meehan is a 46 y.o. female [id number] Chief Complaint: Patient presents with: Pain - [...] as PAIN MEDICINES: Opioids: Hydrocodone (Vicodin, Lortab, Suncook): Why stopped?: don't remember. Came off due [...] HX SALPINGO-OOPHORECTOMY COLONOSCOPY Comment: 03/2006 HX TONSILLECTOMY OR D&C AFTER DELIVERY OR INJECT TRIGGER POINT, 1 OR 2 Family [...] a Physical Therapy evaluation here at the [facility]. 3. Patient will be referred for a Psychology evaluation here at the [facility] Pain [facility] er. 4. Following the completion of [...] want to thank you for [facility] [place] [facility] management evaluation. I trust that you will find the recomm endations satisfactory and that you will be able to implement these in the care of your mehreen ent. Should you have any concerns or questions, please contact me, I would be happy to add ress those with you. DELFINA MOLINA [facility] [place] Mail code CH 4P [place] [facility] [address] [place] [phone] meryTasha - 05/29/2006 1:51 PM PSTInitial Evaluation [...] drinking? no -Do you ever drink an eye-press feeder in the morning to relieve the shakes? [...] stressful life experiences recently? yes If yes, explain:chrome tanning drum operator brigida pain GOALS AND EXPECTATIONS 23. What do you expect from our pain program? Help in coping with the pain 24. What types of treatment do you expect from your visits to the [facility] Pain Center ? Stress Management documented in [...]
--- OUTSIDE RECORDS SUMMARY | ~2020-01-25 | XMS | Encounter Summary ---
Demographics + + + | Address | [address] | | | [place] [address] [...] Team Providers + +------+ + | Care Caul Puller Name | Role | Phone | [...] + + | 08/10/ | Telephone | [facility] Comprehensive | Rosi Antonio, | Fall Ground Level | | 2013 | | Pain Center at | ANP | | | | | [facility] | | | | | | [address] | | | | | | [facility] | | | | | | and Healing, | | | | | | Building , | | | | | | Floor [place], [place] | | | | | | [address] | | | | | | [phone] | | | +--------+ + + + [...]
--- OUTSIDE RECORDS SUMMARY | ~2020-01-25 | XMS | Encounter Summary ---
Demographics + + + | Address | [address] | | | [place] [address] | + + + | Home Phone [...] + +------+ + | Care Coil Winder Strap Name | Role | Phone | + [...] + | 05/01/ | Refill | [facility] INTERNAL | Alanis, | Medication Refill | | 2017 | | MEDICINE [address] | MD Petrona | | | | | [place], | [address] [facility] [facility] | | | | | [place] [address] | [place] [address] | | | | | [phone] | [phone] | | | | | | | [...] | | | | | [place] [address] | | | | | | [phone] | | | | | | | | +--------+---------+ + + + documented as of this encounter Visit Diagnoses Not on filedocumented in this encounter"
--- OUTSIDE RECORDS SUMMARY | ~2020-01-25 | XMS | Encounter Summary ---
Demographics + + + | Address | [address] | | | [place] [address] | + + + | Home Phone [...] Team Providers + +------+ + | Care Die Finisher Name | Role | Phone | [...] as of this encounter Progress Notes Interface, Buckle Strap Drum Operator In - 09/13/2005 2:06 AM PST [id number] [facility] Date: 12/12/2004 Clinic: Endocrinology PHONE CONTACT NOTE The patient called me today after having surgery last week here at [facility]. Her concern was the development of [...] cushion which I have ordered today through [email or web address], phone #[phone] and fax #[phone]. Today, the patient will monitor the decubiti closely and will be in touch with myself and her other physician depending on the progress. She also still has [address], which may be removed in one or two weeks when she returns to the Surgery Clinic at [facility]. Beto Meeks M.D. PD / HS [id number] / [id number] / [id number] / [id number] cc: Chris Padgett M.D. Electronically signed by Beto Meeks 09-12-2005 02:22:31 AM documented i n this encounter Plan of Treatment Not on filedocumented as of this encounter Visit Diagnoses Not on filedocumented in this encounter"
--- OUTSIDE RECORDS SUMMARY | ~2020-01-25 | XMS | Encounter Summary ---
Demographics + + + | Address | [address] | | | [place] [address] | + + + | Home Phone [...] + +------+ + | Care Supply Chain Program Manager Name | Role | Phone [...] Abdominal pain | | 2005 | | [place] [address] | | | | | [address] | | | | | | Mailcode: [id number] | | | | | | Physician's Sharmila | | | | | | [place], [place] | | | | | | [address] | | | | | | [phone] | | | +--------+ + + + [...]
--- OUTSIDE RECORDS SUMMARY | ~2020-01-25 | XMS | Encounter Summary ---
Demographics + + + | Address | [address] | | | [place] [address] | + + + | Home Phone [...] Team Providers + +------+ + | Care Roller Leveler Name | Role | Phone | + +------+ + | Sulaiman Carrera MD | PCP | | + +------+ + Encounter Details +--------+ + + + + | Date | Type | Department | Care Team | Description | +--------+ + + + + | 02/23/ | Ancillary | Registration [address] | Beto Meeks MD | | | 2006 | Registratio | [facility] | [address] | | | | n | [place] Mailcode: [id number] | [place], [place] | | | | | [place], [place] | [address] | | | | | [address] | [phone] | | | | | [phone] | | | +--------+ + + + [...] | + + + + + | [facility] | [address] | [place] [address] | | | LABORATORY | | | [...] [address] | | | | | | [facility], [facility] [place] [place] | | | | | | [address] | | | | | | [phone] | | | | | | Sincere [...] [facility] | [address] | [place], [place] | | | [facility] | | [address] | | + + + + + documented in this encounter Visit Diagnoses Not on filedocumented in this encounter"
--- OUTSIDE RECORDS SUMMARY | ~2020-01-25 | XMS | Encounter Summary ---
Demographics + + + | Address | [address] | | | [place] [address] | + + + | Home Phone [...] Team Providers + +------+ + | Care Museum Exhibit Technician Name | Role | Phone | [...] Rehabilitatio | bilateral | i, | [address] | | | | n | low back | Sulaiman-Iv[address]ny | [place], | | | | | pain with | MD [address] | [place] [address] | | | | | left-sided | [address] | Phone: | | | | | sciatica | [place], | [phone] | | | | | Muscle spasm | [place] | Fax: | | | | | | [address] | [phone] | | | | | Fibromyalgia | Phone: | | | | | | | [phone] | | | | | | | Fax: | | | | | | | [phone] | | +--------+ + + + + + Reason for Visit + + + | Reason | Comments | + + + | Follow-up | 2 month | + + + Encounter Details +--------+---------+ + + + | Date | Type | Department | Care Team | Description | +--------+---------+ + + + | 05/04/ | Office | [facility] | Emmy-Kamlesh, | Chronic bilateral | | 2017 | Visit | MEDICINE [address] | MD Jhon | low back pain with | | | | [address]VE [place], | [address] [facility] | left-sided sciatica | | | | [place] [address] | [place] [address] | (Primary Dx); Muscle | | | | [phone] | [phone] | spasm; | | | | | [...] also help with symptoms. Date Last Reviewed: 07/29/201519994326-3952 [employer] [place] [address]. All righ ts reserved. This information is [...] despite receiving pharmacotherapy for the pain c howie would Butrans at high-dose and gabapentin 1200 [...] [facility]) Depression Diarrhea Dumping syndrome Fatigue fracture of vertebra Fibromyalgia Glaucoma Hyperparathyroidism ([facility]) Hypothyroidism IBS (irritable bowel syndrome) Idiopathic scoliosis Leg edema Lumbar postlaminectomy syndrome Lumbar radiculopathy primarily right 01/04/2015 Meniere syndrome Migraines Muscle cramping Muscle spasm Myalgia Nonalcoholic hepatosteatosis Obesity Opiate dependence ([facility]) Orthostatic hypotension OLIVER (obstructive sleep apnea) Osteoarthritis, generalized Osteopenia Osteoporosis Peripheral neuropathy ([facility]) Rheumatoid arthritis ([facility]) Right arm pain 01/04/2015 RLS (restless [...] (See Comments) Confused and questionable for seizures Tfizzwtwbn-Fens-Bdwkwrtw Cephalexin Hives Ketorolac Hives Morphine Swelling Tramadol Hcl Nausea Only Mvrrnkoolt-Pngc-Jqwsimkt Hives and Rash Ciprofloxacin Hives and Rash [...] back pain with left-sided sciatica - * [facility] Physiatry - [facility] Referral; Future - CBC with Differential; Future - Comprehensive Metabolic Panel; Future - TSH; Future - CK Total; Future - C-Reactive Protein; Future 2. Muscle spasm - * [facility] Physiatry - [facility] Referral; Future - CBC with Differential; Future - Comprehensive Metabolic Panel; Future - TSH; Future - CK Total; Future - C-Reactive Protein; Future - methocarbamol (ROBAXIN) 750 mg tablet; take 1 tablet by mouth twice a day Dispense: 60 t ablet; Refill: 3 3. Fibromyalgia - * [facility] Physiatry - [facility] Referral; Future - CBC with Differential; Future - Comprehensive Metabolic Panel; Future - TSH; Future - CK Total; Future - C-Reactive Protein; Future 4. Left hip pain - XR Hip Left 2-3 Views; Future FOLLOW-UP No Follow-up on file. Note: Parts of this documentwere created using [employer] speech recognition software. As a r esult, there may be unintended word spelling errors. Every attempt was made to correct the dictation. earnest colin in this encounter Miscellaneous Notes Addendum Note - John Thapa MD - 05/04/2017 2:30 PM PST Addended by: JOHN HOPKINS on: 05/04/2017 17:33 Modules accepted: Orders toni barrera in this encounter Plan of Treatment +--------+---------+ + + + | Date | Type | Specialty | Care Team | Description | +--------+---------+ + + + | 02/15/ | Office | Internal Medicine | Alanis, | | | 2019 | Visit | | MD John | | | | | | [facility] [address] | | | | | | [place] [address] | | | | | | [phone] | | | | | | | [...] ST. | [address] | [place] | [phone] | | [facility] | | [address] | | | - LABORATORY | | | | + + + + + CK Total (05/04/2017 3:42 PM PST) + +-------+ + + + | Component | Value | Ref Range | Performed | Pathologist | | | | | At | Signature | + +-------+ + + + | CK TOTAL | 168 | 22 - 269 U/L | JEFF | | | | | | STYudy [...] [address] | [place] | [phone] | | [facility] | | [address] | | | - LABORATORY | | [...] + | [facility] | [address] | [place] | [phone] | | [facility] | | [address] | | | - LABORATORY | | [...] | non- | FILTRATION | mL/min/1.73m2 | Yudy NATHAN | | | Swiss | RATE,ESTIMATED | | MEDICAL | | | | mL/min/1.25w0Vcqm than | | CENTER - | | [...] 4.1 | 3.2 - 5.0 g/dL | [facility] | | | | | | NATHAN [...] | ine Ratio | | | [facility] | | | | | | MEDICAL [...] + | [facility] | [address] | [place] | [phone] | | [facility] | | [address] | | | - LABORATORY | | [...] [facility] | | | | | | Yudy EVANS | | | | | | MEDICAL | | | | | | CENTER - | | | | | | LABORATORY | | + + + + + + | MCV | 98.5 | 83.0 - 101.0 fL | [facility] | | | | | | . NATHAN | | | | [...] | | Basophils | | K/uL | [facility] | | | | | | MEDICAL [...] [address] | [place] | [phone] | | [facility] | | [address] | | | - LABORATORY | | [...]
--- OUTSIDE RECORDS SUMMARY | ~2020-01-25 | XMS | Encounter Summary ---
Demographics + + + | Address | [address] | | | [place] [address] | + + + | Home Phone [...] Providers + +------+ + | Care Ornamental Metalwork Designer Name | Role | Phone | [...] | | | | FAMILY | Rd [place], | | | | | | MEDICINE | [place] | | | | | | [address] | [address] | | | | | | [place] | Phone: | | | | | | [place], | [phone] | | | | | | [place] [address] | Fax: | | | | | | Phone: | [phone] | | | | | | [phone] | | | | | | | Fax: | | | | | | | [phone] | | +--------+--------+ + + + + [...] | (Primary Dx) | | | | [facility] | [place], [place] | | | | | and Healing, | [address] | | | | | [facility] | [phone] | | | | | Floor [place], [place] | | | | | | [address] | | | | | | [phone] | | | +--------+---------+ + + + [...] surgery. She is being followe d [facility] providers for metabolic syndrome and hypothyroidism - Dr. Meeks, emotional issue s - Dr. Lukasz Ogden, and her PCP in [place]. She has sx of stress urinary incontinence [...] treated. She would like a urology or DIVISIONAL HUMAN RESOURCES DIRECTOR referral as appropriate. Labs ordered. See in [...] [address]eta | | | | | | [place] [address] | | | | | | [phone]. | | | | | | Sincere [...] [facility] | [address] | [place], [place] | | | [facility] | | [address] | | + + + + + [...] | pg/mL | | | | | [facility]. | | | | + + + + + + + + | Specimen | + + | | + + + + + + + | Performing | Address | City/State/Zipcode | Phone Number | | Organization | | | | + + + + + | [facility] | [address] | [place] [address] | | | LABORATORY | | | [...] | | | [facility] [place] [address] | | | [place] [address] | | + + + + + + + + | Performing | Address | City/State/Zipcode | Phone Number | | Organization | | | | + + + + + | [facility] | [address] | [place] [address] | | | LABORATORY | | | [...] | | | [facility] [place] [address] | | | [place] [address] | | + + + + + + + + | Performing | Address | City/State/Zipcode | Phone Number | | Organization | | | | + + + + + | [facility] | [address] | [place] [address] | | | LABORATORY | | | [...] Performed At | + + + | [address] Estimated GFR > 60 mL/min/1.73 sq m if non- | [facility] | | [address] Estimated GFR > 60 mL/min/1.73 sq m [...] | + + + + + | [facility] DEPARTMENT OF | [address] [facility] | [place] [address] | | | PATHOLOGY | [address] | | | + + + + + | [facility] DEPARTMENT OF | [address] [facility] | [place] [address] | | | PATHOLOGY | [address] [...] [facility] | [address] [facility] [facility] | [place] [address] | | | PATHOLOGY | [address] | | | + + + + + | [facility] | [address] [facility] | [place] [address] | | | PATHOLOGY | [address] | | | + + + + + documented in this encounter Visit Diagnoses + + | Diagnosis | + + | Status post bariatric surgery - Primary Bariatric surgery status | + + documented in this encounter"
--- OUTSIDE RECORDS SUMMARY | ~2020-01-25 | XMS | Encounter Summary ---
Demographics + + + | Address | [address] | | | [place] [address] | + + + | Home Phone [...] Providers + +------+ + | Care Mobile Home Set Up Person Name | Role | Phone | [...] | 2006 | Visit | [facility] at [employer] | [address] [facility] | (Primary Dx); DJD | | | | for Health and | [facility], [place] | (Degenerative Joint | | | | Healing [address] | [address] | Disease) of Left | | | | [facility] for | [phone] | Knee | | | | Health and Healing, | | | | | | | | | | | | [place], [place] | | | | | | [address] | | | | | | [phone] | | | +--------+---------+ + + + [...] note might be different from lesli gomez. [facility] Sports Medicine Clinic 09/23/2006 Belinda Meehan [...] a gastri c bypass and is much glassie now. She is doing PT as this point. With some benefit. She is concerned because she now has some poppin mahesh dlocking symptoms and wants to know if there si something that promotions intern be done w ith a scope to fix her knee. Faiza miranda Past Medical History Diagnosis Date CHRONIC ABDOMINAL [...] (ciprofloxacin) Tramadol Morphine IM ( only in [facility]) made gut pain worse 08/27/06: [...] gait, soft tissue tenderness over me d jodebbie montoya ne, reduced range of motion, negative [...] the MRI. Ramon Ibarra M.D. Sports Medicine [facility] Orthopaedics and Rehabilitation [facility] [place] [address] [phone] documented in this encoun ter Plan of [...] POZO, | | | | | | M.DYudy-Radiologist 2: | | | | | | [...] | | + +---------+ + + | [facility] DEPARTMENT OF | | | [...] | | + +---------+ + + | [facility] DEPARTMENT OF | | | [...]
--- OUTSIDE RECORDS SUMMARY | ~2020-01-25 | XMS | Clinical Summary ---
Demographics + + + | Address | [address] | | | [place] [address] | + + + | Home Phone [...] Team Providers + +------+ + | Care Space Buyer Name | Role | Phone | + +------+ + | Sulaiman Carrera MD | PCP | | + +------+ + Source Comments MARK is fully live on both [facility] and [facility] InPatient.Formerly [facility] Allergies + + + + + [...] + + + + + + | Lbcgqfv-Ldywvwmvtb-V | | | 08/29/19 | Balance problems [...] in | | | | | | [facility]) | | | | | | [...] | imbalances, sleep apnea, neck pain, medication [id number] | + + + + + | [...] | B | | sent | | [place], [place] | | | | | | | | [address] | | + +--------+ +--------+ + +--------+ | [employer]ICA[employer] | PRETZEL COOKER | xxxxxxxx | | | | Medica [...] | 1960 | [phone] | [place] [address] | | | bijan | | | 3 (Home) | | + +--------+ +--------+ + + | Belinda Meehan | Medica | Self | [birth year] | | [address] | | | re | | 9 | [phone] | [place] [address] | | | Recurr | | | 3 (Home) | | | | ing | | | | | + +--------+ +--------+ + + Advance Directives + + + + + | Type | Date Recorded | Patient | Explanation | | | | Veterinary Poultry Inspector | | + + + + + | Advance | 11/19/2004 12:00 | | ADVANCE DIRECTIVE | | Directives and | AM | | | | Living Will | | | | + + + + + | Power of | | | | | Customer Sales Representative | | | | + + + [...]
--- OUTSIDE RECORDS SUMMARY | ~2020-01-25 | XMS | Encounter Summary ---
Demographics + + + | Address | [address] | | | [place] [address] | + + + | Home Phone [...] Team Providers + +------+ + | Care Universal Worker Assisted Living Name | Role | Phone | + [...] Rd | | | | | | [place], [place] | | | | | | [address] | | | +--------+ + + + [...] as of this encounter Progress Notes Interface, Ordnance Equipment Worker In - 12/06/2006 2:32 AM PDT [id number] GEOVANNI Barnes [id number] Clinic Date: 10/29/2006 Clinic: Endocrinology Subjective: Belinda [...] been working with the [facility] at [facility] to optimize her pain management. Fortunately, the [...] patch 25 mcg for 72 hours. 2. [employer]/acetaminophen 10 mg/325 mg, 1 every 6 hours [...] months. Beto Meeks M.D. PD / HS [id number] / [id number] / [id number] / [id number] cc: Pedrito Gutierrez M.D. [address] [place] [address] Chris Padgett M.D. Electronically signed by Beto Meeks 12-05-2006 05:17:05 AM documented in this encounter Plan of Treatment Not on filedocumented as of this encounter Visit Diagnoses Not on filedocumented in this encounter"
--- OUTSIDE RECORDS SUMMARY | ~2020-01-25 | XMS | Encounter Summary ---
Demographics + + + | Address | [address] | | | [place] [address] | + + + | Home Phone [...] Providers + +------+ + | Care Home Designer Name | Role | Phone | [...] | | | | | [address] | | | | | | | [place] [facility] | | | | | | | Health and | | | | | | | Healing, | | | | | | | Building [address] | | | | | | | [place], [place] | | | | | | | [address] | | | | | | | Phone: | | | | | | | [phone] | | | | | | | Fax: | | | | | | | [phone] | +--------+--------+ + + + + Encounter Details +--------+---------+ + + + | Date | Type | Department | Care Team | Description | +--------+---------+ + + + | 01/10/ | Office | Dig[facility]ive Health | Chris Padgett, | Status post | | 2009 | Visit | Center [address] | [address] [facility] | bariatric surgery | | | | Ave Mailcode: CH4S | [address] | (Primary Dx) | | | | [facility] | [place], [place] | | | | | and [place], | [address] | | | | | Building [address]th | [phone] | | | | | Floor [place], [place] | | | | | | [address] | | | | | | [phone] | | | +--------+---------+ + + + [...] and I asked her to see a development technologist where she lives. Will obtain CBC and [...]
--- OUTSIDE RECORDS SUMMARY | ~2020-01-25 | XMS | Encounter Summary ---
Demographics + + + | Address | [address] | | | [place] [address] | + + + | Home Phone [...] Providers + +------+ + | Care Livestock Farm Manager Name | Role | Phone | [...]
--- OUTSIDE RECORDS SUMMARY | ~2020-01-25 | XMS | Encounter Summary ---
Demographics + + + | Address | [address] | | | [place] [address] | + + + | Home Phone [...] Providers + +------+ + | Care Agricultural Education Professor Name | Role | Phone | [...] | Pain | Diagnoses | Miracle, | Rains, | | | | Management | LBP (low | NIHARIKA Jean | Lukasz Rhodes, PhD | | | | | back pain) | [address] | [address] | | | | | DJD | [address] | Ave | | | | | (degenerativ | [place], [place] | [place], [place] | | | | | e joint | [address] | [address] | | | | | disease) of | | Phone: | | | | | knee Knee | | [phone] | | | | | pain Major | | Fax: | | | | | depressive | | [phone] | | | | | disorder, | [...] / | Office | [facility] | Lukasz Charles, | Major Depressive | | 2007 | Visit | [address] | PhD [address] | Disorder, Recurrent | | | | Center for [facility] | [place], [place] | Episode, Moderate | | | | and Healing, | [address] | ([facility]); LBP (Low Back | | | | | [phone] | Pain); Fibromyalgia | | | | Floor [place], [place] | | syndrome 729.1; | | | | [address] | | Adjustment Disorder | | | | [phone] | | with Anxiety; | | | | | | Bilateral Knee Pain; | | [...] skills during intense pain episode s. Diagnosis: [place] I: 1. (296.32) Major depressive disorder, recurrent, moderate. 2. (309.24) Adjustment disorder with anxiety. 3. (307.89) Chronic pain disorder associated with both psychological factors and a gene ral medical condition. [place] II: Deferred [place] III: abdominal pain, migraine headache, low back pain. [place] IV: low finances [place] V: GAF 55-60 Plan: return with next medical follow-up appointment. Check mood, knee surgery, relaxatio n, activity, distraction. Continue cognitive/behavioral therapy. Total time spent with patient was approximately 45 minutes. LUKASZ CHARLES [facility] [address] [facility], [address] [place] [address] documented in this encount er Plan of Treatment + + +--------+ + + | Name | Type | Priori | Associated Diagnoses | Order Schedule | | | | ty | | | + + +--------+ + + | [facility], | Procedures | Routin | Major Depressive | Ordered: 08/13/2007 | | OFFICE (04-58) | | e | Disorder, Recurrent | | | | | | Episode, Moderate | | | | | | ([facility]) LBP (Low Back | | | | [...]
--- OUTSIDE RECORDS SUMMARY | ~2020-01-25 | XMS | Encounter Summary ---
Demographics + + + | Address | [address] | | | [place] [address] | + + + | Home Phone [...] Team Providers + +------+ + | Care Urology Surgeon Name | Role | Phone | + +------+ + | Petrona Thapa | PCP | | | MD | | | + +------+ + Reason for Visit + +--------+ + | Reason | Onset | Comments | | | Date | | + +--------+ + | Foot Injury | 11/15/ | | | | 2019 | | + +--------+ + Encounter Details +--------+ + + + + | Date | Type | Department | Care Team | Description | +--------+ + + + + | 11/15/ | Telephone | [facility] | Alanis, | Foot Injury | | 2019 | | MEDICINE [address] | MD Petrona | | | | | [place], | [address] [facility] | | | | | [place] [address] | [place] [address] | | | | | [phone] | [phone] | | | | | | | [...] Telephone Encounter - Maggie Montoya LPN - 11/16/2019 9:50 AM PDTPatient not able to contr ol bleeding advised to seek medical attention at the ED in [facility]. Understands and a ccepts elephone Encount - Long Owen - 11/16/2019 8:21 AM PDTPatient dropped scissors on her is Rig ht ankle and though she just nicked it but shortly after her sock and pajamas filled up with blood and white puss. Patient would like to speak with a nurse please advise. Electronicall y signed by Long Chin at 11/16/2019 8:24 AM PDTdocumented in this encounter Plan of [...] | | | | | [place] [address] | | | | | | [phone] | | | | | | | | +--------+---------+ + + + documented as of this encounter Visit Diagnoses Not on filedocumented in this encounter"
--- OUTSIDE RECORDS SUMMARY | ~2020-01-25 | XMS | Encounter Summary ---
Demographics + + + | Address | [address] | | | [place] [address] | + + + | Home Phone [...] + +------+ + | Care Remote Sensing Advisor Name | Role | Phone | [...] | | Essential | | | | [place], [place] | | hypertension 401.9; | | | | [address] | | Type II or | | | | [phone] | | unspecified type | | | [...] | | | LABORATORY | | | AUSTRIAN | | | SERVICES, | | | [...] | + + + + + | [facility] | [address] | [place] [address] | | | SERVICES, CORE | [address] [...] + + + + + | [facility] | [address] | [place] [address] | | | SERVICES, CORE | [address] [...] | | If you are | | [place] | | | | screening for diabetes: [...] + | [facility] | [address] | [place] [address] | | | [place] | | | [...] [facility] | [address] | [place] [address] | | | SERVICES, SPECIAL | PARK [...] + | [facility] | [address] | [place] [address] | | | SERVICES, CORE | [address] [...] [facility] | [address] | [place] [address] | | | SERVICES, SPECIAL | [address] [...] by | | | | | | [employer],[address] | | | | | | Abdiaziz Morales, [facility] | | | | | | [address] | | | | | | [phone].[employer]. | | | | | | Get [...] [facility] | [address] | [place], [place] | | | [facility] | | [address] | | + + + + + [...] | + + + + + | [facility] | [address] | [place] [address] | | | SERVICES, SPECIAL | [address] [...] + | [facility] | [address] | [place] [address] | | | [place] | | | | + + + [...]
--- OUTSIDE RECORDS SUMMARY | ~2020-01-25 | XMS | Encounter Summary ---
Demographics + + + | Address | [address] | | | [place] [address] | + + + | Home Phone [...] Team Providers + +------+ + | Care Treating Engineer Name | Role | Phone | [...] + + | 01/17/ | Office | [facility] | Alanis, | Surgical wound | | 2019 | Visit | MEDICINE [address] | MD Petrona | infection (Primary | | | | [place], | [address] [place] | Dx) | | | | [place] [address] | [place] [address] | | | | | [phone] | [phone] | | | | | | | [...] [facility]) Depression Diarrhea Dumping syndrome Fall at home Fatigue fracture of vertebra Fibromyalgia Full dentures GERD (gastroesophageal reflux disease) Glaucoma Hyperparathyroidism ([facility]) Hypothyroidism IBS (irritable bowel syndrome) Idiopathic scoliosis Leg edema Low back pain Lumbar postlaminectomy syndrome Lumbar radiculopathy primarily right 01/04/2015 Meniere syndrome Migraine with aura Migraines Muscle cramping Muscle spasm Myalgia Nausea Nonalcoholic hepatosteatosis Obesity Opioid dependence ([facility]) Orthostatic hypotension OLIVER (obstructive sleep apnea) Osteoarthritis, generalized Osteopenia Osteoporosis Palpitations Peripheral neuropathy Rheumatoid arthritis ([facility]) [...] ours as needed for Pain. Incontinence Supplies MIS As directed 100 each 11 levoFLOXacin (LEVAQUIN) [...] Allergen Reactions Ensure Diarrhea Food Diarrhea Lactose Odcnlqxkni-Vnk-Tyah-Codeine Other (See Comments) Balance problems Codeine Sulfate Nausea Only Food Allergy Formula Diarrhea Ensure Levofloxacin Hives, Itching and Rash Butalbital Ropinirole Amitriptyline Hcl Other (See Comments) Confused and questionable for seizures Tamwifgwmh-Rdhc-Hdpvgvrt Hives and Rash Cephalexin Hives Ciprofloxacin Hives [...] Note: Parts of this documentwere created using [employer] speech recognition software. As a r esult, [...] | | | | | | [address] [place] [address] [address]EL | | | | | | [place] [address] | | | | | | [phone] | | | | | | | | +--------+---------+ + + + documented as of this encounter Visit Diagnoses + + | Diagnosis | + + | Surgical wound infection - Primary Other postoperative infection | + + documented in this encounter
--- OUTSIDE RECORDS SUMMARY | ~2020-01-25 | XMS | Encounter Summary ---
Demographics + + + | Address | [address] | | | [place] [address] | + + + | Home Phone [...] Providers + +------+ + | Care Employment Counselor Name | Role | Phone | [...] | | | | Clinical Nutrition | [place], [place] | | | | | [address] | [address] | | | | | Loop Mailcode: OPC5 | [phone] | | | | | Outpatient Clinic | | | | | | [facility] | | | | | | [place] [address] | | | | | | [phone] | | | +--------+ + + + [...] + + + + | [facility] | [address] | [place] [address] | | | PATHOLOGY | [address] | | | + + + + + | [facility] | [facility] | [place] [address] | | | PATHOLOGY | [address] | | | + + + + + documented in this encounter Visit Diagnoses Not on filedocumented in this encounter"
--- OUTSIDE RECORDS SUMMARY | ~2020-01-25 | XMS | Encounter Summary ---
Demographics + + + | Address | [address] | | | [place] [address] | + + + | Home Phone [...] + +------+ + | Care Real Estate Processor Name | Role | Phone | [...] Required | | paroxysmal | [address] | [facility] | | | | | positional | [address] | [address] | | | | | vertigo, | [place] | AVE | | | | | left | [place], [place] | [place], [place] | | | | | Vertigo of | [address] | [address] | | | | | central | Phone: | Phone: | | | | | origin, left | [phone] | [phone] | | | | | | Fax: | Fax: | | | | | | [phone] | [phone] | +--------+ + + + + + + + | Scheduling Instructions | + + | Patient is going to be having an Tayler maneuver done and at [facility]. | + + Encounter Details +--------+ + + + + | Date | Type | Department | Care Team | Description | +--------+ + + + + | 12/11/ | Orders Only | [facility] | Ulysses Genao MD | Benign paroxysmal | | 2015 | | OTOLARYNGOLOGY [address] | [address] | positional vertigo, | | | | [address] | [address] [place] | left (Primary Dx); | | | | [place] | [place] [address] | Vertigo of central | | | | [address] | [phone] | origin, left | | | | [phone] | | | +--------+ + + + [...] | | | | | [address] [facility] | | | | | | [place] [address] | | | | | | [phone] | | | | | | | [...]
--- OUTSIDE RECORDS SUMMARY | ~2020-01-25 | XMS | Encounter Summary ---
Demographics + + + | Address | [address] | | | [place] [address] | + + + | Home Phone [...] Providers + +------+ + | Care Sales Planning Manager Name | Role | Phone | [...] as of this encounter Progress Notes Interface, C Software Engineer In - 10/03/2006 2:33 AM PDT [id number] GEOVANNI SKELTON J [id number] Clinic Date: 09/14/2006 Clinic: Rheumatology Belinda Meehan [...] every 3 days changed; Trileptal 225 mg; Ionia 10/325; and Actonel. Objective: Weight is 214, [...] to this. Caitlin Rivera M.S., F.N.P. / [id number] / [id number] / [id number] / [id number] cc: Pedrito Gutierrez M.D. [address] [facility] [address], [place] [address] [facility] Electronically signed by Caitlin Rivera 10-02-2006 09:24:29 AM documented in this encounter Plan of Treatment Not on filedocumented as of this encounter Visit Diagnoses Not on filedocumented in this encounter"
--- OUTSIDE RECORDS SUMMARY | ~2020-01-25 | XMS | Encounter Summary ---
Demographics + + + | Address | [address] | | | [place] [address] | + + + | Home Phone [...] Providers + +------+ + | Care Recovery Manager Name | Role | Phone | [...] [id number] | | | | | | [place], [place] | | | | | | [address] | | | | | | [phone] | | | +--------+ + + + [...]
--- OUTSIDE RECORDS SUMMARY | ~2020-01-25 | XMS | Encounter Summary ---
Demographics + + + | Address | [address] | | | [place] [address] | + + + | Home Phone [...] Providers + +------+ + | Care Production Broacher Name | Role | Phone | + +------+ + | Petrona Thapa | PCP | | | MD | | | + +------+ + Encounter Details +--------+ + + + + | Date | Type | Department | Care Team | Description | +--------+ + + + + | 05/04/ | Hospital | [facility] | Alanis, | Left hip pain | | 2017 | Encounter | [facility] | MD Petrona | | | | | [address] [place] | [address] [facility] | | | | | [place], [place] | [place] [address] | | | | | [address] | [phone] | | | | | [phone] | | | +--------+ + + + [...] ordered, please prin jacobsen and fax to [facility]udyElectronically signed by Petrona Thapa MD at 017 10:49 AM PSTdocumented in this encounter Plan of Treatment +--------+---------+ + + + | Date | Type | Specialty | Care Team | Description | +--------+---------+ + + + | 02/15/ | Office | Internal Medicine | Alanis, | | | 2019 | Visit | | MD Petrona | | | | | | [address] [place] [address] | | | | | | [place] [address] | | | | | | [phone] | | | | | | | [...]
--- OUTSIDE RECORDS SUMMARY | ~2020-01-25 | XMS | Encounter Summary ---
Demographics + + + | Address | [address] | | | [place] [address] | + + + | Home Phone [...] Providers + +------+ + | Care Commercial Relationship Manager Name | Role | Phone | + +------+ + | Sulaiman Carrera MD | PCP | | + +------+ + Encounter Details +--------+ + + + + | Date | Type | Department | Care Team | Description | +--------+ + + + + | 01/02/ | Ancillary | Registration [id number] | Beto Meeks MD | | | 2004 | Registratio | [facility] | [address] | | | | n | [address] Mailcode: [id number] | [place], [place] | | | | | [place], [place] | [address] | | | | | [address] | [phone] | | | | | [phone] | | | +--------+ + + + [...] OF | [address] | [place] [address] | | | PATHOLOGY | [address] | | | + + + + + | [facility] DEPARTMENT OF | [address] | [place] [address] | | | PATHOLOGY | [address] [...] | [facility] DEPARTMENT OF | [address] [facility] | [place] [address] | | | PATHOLOGY | [address] | | | + + + + + | [place] DEPARTMENT OF | [address] [facility] | [place] [address] | | | PATHOLOGY | [address] [...] | + + + + + | [facility] | [address] | [place] [address] | | | LABORATORY | | | | + + + + + documented in this encounter Visit Diagnoses Not on filedocumented in this encounter"
--- OUTSIDE RECORDS SUMMARY | ~2020-01-25 | XMS | Encounter Summary ---
Demographics + + + | Address | [address] | | | [place] [address] | + + + | Home Phone [...] Providers + +------+ + | Care Retail Merchandiser Name | Role | Phone | + [...] as of this encounter Progress Notes Interface, Hose Tender In - 03/29/2005 5:05 AM PDT [id number] GEOVANNI [facility] Date: 03/20/2005 Clinic: Rheumatology [...] and sense of disability is 5/10. Her pillowcase cutter needs a note from me that she [...] for the diagnosis of fibromyalgia by the [employer]. She also has the [...] to treat restless legs. There is a contact worker in [place] who is using large doses to reduce [...] 4 months. Caitlin Rivera M.S., F.N.P. / [id number] / [id number] / [id number] / [id number] cc: Pedrito Gutierrez M.D. [address] [place] [address] Belinda Meehan [address] [facility] [address] Electronically signed by Caitlin Rivera 03-28-2005 01:43:14 PM documented i n this encounter Plan of Treatment Not on filedocumented as of this encounter Visit Diagnoses Not on filedocumented in this encounter"
--- OUTSIDE RECORDS SUMMARY | ~2020-01-25 | XMS | Encounter Summary ---
Demographics + + + | Address | [address] | | | [place] [address] | + + + | Home Phone [...] Team Providers + +------+ + | Care Decorator Consultant Name | Role | Phone | [...] Lab findings, | | 2006 | | [place] [address] | [address] | teaching, guidance, | | | | Ave Mailcode: CH4S | [address] | and counseling | | | | [facility] | [place], [place] | | | | | and Healing, | [address] | | | | | [facility] | [phone] | | | | | [place], [place] | | | | | | [address] | | | | | | [phone] | | | +--------+ + + + [...]
--- OUTSIDE RECORDS SUMMARY | ~2020-01-25 | XMS | Encounter Summary ---
Demographics + + + | Address | [address] | | | [place] [address] | + + + | Home Phone [...] + +------+ + | Care High School Combination Teacher Name | Role | Phone | [...] | | | | Clinical Nutrition | [place], [place] | | | | | [address] | [address] | | | | | Loop Mailcode: OPC5 | [phone] | | | | | Outpatient Clinic | | | | | | [facility] | | | | | | [place] [address] | | | | | | [phone] | | | +--------+ + + + [...] + + + | [facility] | [address] | [place] [address] | | | LABORATORY | | | [...] + + + | [facility] | [address] | [place] [address] | | | LABORATORY | | | [...] Blood Test performed by | | | [facility]. | | + + + + + + + + | Performing | Address | City/State/Zipcode | Phone Number | | Organization | | | | + + + + + | [facility] | [address] | [place] [address] | | | LABORATORY | | | | + + + + + documented in this encounter Visit Diagnoses Not on filedocumented in this encounter"
--- OUTSIDE RECORDS SUMMARY | ~2020-01-25 | XMS | Encounter Summary ---
Demographics + + + | Address | [address] | | | [place] [address] | + + + | Home Phone [...] Team Providers + +------+ + | Care Internetworking Technician Name | Role | Phone | + +------+ + | Petrona Thapa | PCP | | | MD | | | + +------+ + Encounter Details +--------+ + + + + | Date | Type | Department | Care Team | Description | +--------+ + + + + | 12/07/ | Abstract | [facility] | Alanis, | | | 2017 | | MEDICINE [address] | MD Petrona | | | | | [address] [place], | [address] [facility] | | | | | [place] [address] | [place] [address] | | | | | [phone] | [phone] | | | | | | | [...] | | | | | [place] [address] | | | | | | [phone] | | | | | | | [...] Results for this | | STUDY MARTHA PERRY FX | e | | | procedure [...]
--- OUTSIDE RECORDS SUMMARY | ~2020-01-25 | XMS | Encounter Summary ---
Demographics + + + | Address | [address] | | | [place] [address] [...] Providers + +------+ + | Care Erp Business Analyst Name | Role | Phone [...] [id number] | | | | | | [place], [place] | | | | | | [address] | | | | | | [phone] | | | +--------+ + + + [...]
--- OUTSIDE RECORDS SUMMARY | ~2020-01-25 | XMS | Encounter Summary ---
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 female [facility] Pain Center Return Visit Chief [...] drawing has be completed, which I reviewed. [facility] Brief Pain Inventory: Right Now: 9 [...] Physical therapy: Two days per week in [place] knees and both legs, shoulders and back [...] Pending 08/30/[address] [facility] Cad[facility] in [facility]: right knee arthroplasty. Urology evaluation for [...] Surgical History Procedure Date Gastric bypass CYudy Robledoeney wt 278 01/18 Paniculectomy Hx cholecystectomy Hx salpingo-oophorectomy Colonoscopy 03/2006 Hx tonsillectomy Pr d&c after delivery Pr inject trigger point, 1 or 2 Hx knee replacement 02/2007 Left knee Hx hysterectomy Hx section Family History Problem Relation Cancer Mother Heart Father Additional Family History Father Migraine Additional Family History Mother Migraine Collection Information Collection Date Collection Time Resulting Agency 05/25/2007 4:06 PM [facility] DEPARTMENT OF RADIOLOGY Component Results MR [...] with any concerns or questions. DELFINA MOLINA [email or web address] PAIN CENTER Mail code CH 4P [facility] and [facility] [address] [facility] [address] Ailyn Bello 08/13/19 08 8:52 [...]
--- OUTSIDE RECORDS SUMMARY | ~2020-01-25 | XMS | Encounter Summary ---
Demographics + + + | Address | [address] | | | [place] [address] | + + + | Home Phone [...] Team Providers + +------+ + | Care Buck Presser Name | Role | Phone | [...] + + | 09/12/ | Telephone | [facility] | Miranda Lambert, | Medication | | 2009 | | Pain Center at | ANP | Adjustment (rec's | | | | [place] | | for weaning due to | | | | [address] | | over use) | | | | [place] for [facility] | | | | | | and Healing, | | | | | | Building , | | | | | | Floor [place], [place] | | | | | | [address] | | | | | | [phone] | | | +--------+ + + + [...]
--- OUTSIDE RECORDS SUMMARY | ~2020-01-25 | XMS | Encounter Summary ---
Demographics + + + | Address | [address] | | | [place] [address] | + + + | Home Phone [...] Team Providers + +------+ + | Care Tape Rules Printing Machine Operator Name | Role | Phone [...] Densitometry | | MD Beto | Density [facility] | | | | | Osteoporosis | [address] | [address] | | | | | Procedures | Ave | [address] | | | | | CONSULT TO | [place], [place] | Rd Mailcode: | | | | | BONE | [address] | [address] | | | | | DENSITOMETRY | Phone: | [address] | | | | | | [phone] | [place], [place] | | | | | | Fax: | [address] | | | | | | [phone] | Phone: | | | | | | | [phone] | | | | | | | Fax: | | | | | | | [phone] | +--------+--------+ + + + + Reason [...] [address] | | | | | [facility] | [place], [place] | | | | | [address] | [address] | | | | | [address] | [phone] | | | | | [facility] | | | | | | Physician's | | | | | | Pavilion [place], | | | | | | [place] [address] | | | | | | [phone] | | | +--------+ + + + [...]
--- OUTSIDE RECORDS SUMMARY | ~2020-01-25 | XMS | Encounter Summary ---
Demographics + + + | Address | [address] | | | [place] [address] | + + + | Home Phone [...] Providers + +------+ + | Care Paper Machine Operator Name | Role | Phone [...] + + | 12/04/ | Telephone | [facility] INTER[facility] | Alanis, | Medication Orders | | 2019 | | MEDICINE [address] | MD Petrona | | | | | [place], | [address] | | | | | [place] [address] | [place] [address] | | | | | [phone] | [phone] | | | | | | | [...] the nu rse. Please call patient at [phone].Electronically signed by Adriana Cantor at 11/14 8:17 AM PDTTelephone Encounter - Adriana Cantor - 12/05/2019 6:42 AM PDTPatient called asking to speak with the nurse. She stated her Loperamide was called in incorrectly and needs to be called in as 4 capsules in the morning and 2 in the evening and not just 2 in the daytime. Please call patient at [phone]. documented in this encounter Plan of Treatment [...] | | | | | [place] [address] | | | | | | [phone] | | | | | | | | +--------+---------+ + + + documented as of this encounter Visit Diagnoses Not on filedocumented in this encounter"
--- OUTSIDE RECORDS SUMMARY | ~2020-01-25 | XMS | Encounter Summary ---
Demographics + + + | Address | [address] | | | [place] [address] | + + + | Home Phone [...] Team Providers + +------+ + | Care Early Morning Babysitter Name | Role | Phone | + +------+ + | Petrona Thapa | PCP | | | MD | | | + +------+ + Reason for Visit + +--------+ + | Reason | Onset | Comments | | | Date | | + +--------+ + | Headache | 11/03/ | | | | 2018 | | + +--------+ + Encounter Details +--------+ + + + + | Date | Type | Department | Care Team | Description | +--------+ + + + + | 11/03/ | Telephone | [facility] | Alanis, | Headache | | 2018 | | MEDICINE [address] | MD Petrona | | | | | [place], | [address] [facility] | | | | | [place] [address] | [place] [address] | | | | | [phone] | [phone] | | | | | | | [...] Telephone Encounter - Maggie Montoya LPN - 11/03/2018 9:47 AM PDTPatient just wanted to le t the MD know that her migraine prevention medication seem to be ineffective needing to take tylenol in addition for the headache. Instructed to only take as directed Wants to discuss other alternatives at the next follow up appt on 11/15/18. Advised to seek medical treatment at the ED in [place] for any worsening symptoms. Patient understands and accepts. Please a dvise eleBob Flores - 11/03/2018 8:47 AM PDTPatient called states she's needing to cristi rankin with nurse to get some advise. Patient has a terrible headache call patient back to cristi rankin. documented in this encounter Plan of Treatment [...] | | | | | [place] [address] | | | | | | [phone] | | | | | | | | +--------+---------+ + + + documented as of this encounter Visit Diagnoses Not on filedocumented in this encounter"
--- OUTSIDE RECORDS SUMMARY | ~2020-01-25 | XMS | Encounter Summary ---
Demographics + + + | Address | [address] | | | [place] [address] | + + + | Home Phone [...] Providers + +------+ + | Care Post Tronic Machine Operator Name | Role | Phone [...] | 02/17/ | Refill | [facility] | Alanis, | Medication Refill | | 2018 | | MEDICINE [address] | MD Petrona | | | | | [place], | [address] [facility] | | | | | [place] [address] | [place] [address] | | | | | [phone] | | | | | | | [...] | | | | | [place] [address] | | | | | | [phone] | | | | | | | | +--------+---------+ + + + documented as of this encounter Visit Diagnoses + + | Diagnosis | + + | Chest pain, unspecified type | + + documented in this encounter"
--- OUTSIDE RECORDS SUMMARY | ~2020-01-25 | XMS | Encounter Summary ---
Demographics + + + | Address | [address] | | | [place] [address] | + + + | Home Phone [...] Providers + +------+ + | Care Field Crew Chief Name | Role | Phone | [...] ANP | Assessment | | | | [facility] | | | | | | [address] | | | | | | [facility] | | | | | | and Healing, | | | | | | Building , | | | | | | Floor [place], [place] | | | | | | [address] | | | | | | [phone] | | | +--------+ + + + [...]
--- OUTSIDE RECORDS SUMMARY | ~2020-01-25 | XMS | Encounter Summary ---
Demographics + + + | Address | [address] | | | [place] [address] | + + + | Home Phone [...] Providers + +------+ + | Care Non Morse Intercept Technician Name | Role | Phone | [...] as of this encounter Discharge Summaries Interface, Gauge And Instrument Inspector In - 01/12/2005 6:32 AM PDTAdmission Date: [...] M.D., D.M.D. Chris Padgett M.D. CLAIRE/carolynn A [id number] cc: documente d in this encounter Plan of Treatment Not on filedocumented as of this encounter Visit Diagnoses Not on filedocumented in this encounter"
--- OUTSIDE RECORDS SUMMARY | ~2020-01-25 | XMS | Encounter Summary ---
Demographics + + + | Address | [address] | | | [place] [address] | + + + | Home Phone [...] Providers + +------+ + | Care Director Shopper Marketing Name | Role | Phone | [...]
--- OUTSIDE RECORDS SUMMARY | ~2020-01-25 | XMS | Encounter Summary ---
Demographics + + + | Address | [address] | | | [place] [address] | + + + | Home Phone [...] Providers + +------+ + | Care Electrical Logging Operator Name | Role | Phone | [...] | | 2006 | | [facility] [place] | MD Darrion,PhD [address] | | | | | for Health and | [address] | | | | | Healing [address] | [place], [place] | | | | | [facility] for | [address] | | | | | Health and Healing, | [phone] | | | | | | | | | | | Floor [place], [place] | | | | | | [address] | | | | | | [phone] | | | +--------+ + + + [...]
--- OUTSIDE RECORDS SUMMARY | ~2020-01-25 | XMS | Encounter Summary ---
Demographics + + + | Address | [address] | | | [place] [address] | + + + | Home Phone [...] Providers + +------+ + | Care Medical Research Associate Name | Role | Phone | + +------+ + | Sulaiman Carrera MD | PCP | | + +------+ + Reason for Visit + + + | Reason | Comments | + + + | Neck pain | | + + + | Migraine | | + + + | Shoulder pain | | + + + | Pain In Right Arm | | + + + Intake Referral (Routine) +--------+---------+ + + + + | Status | Reason | Specialty | Diagnoses / | Referred By | Referred To | | | | | Procedures | Contact | Contact | +--------+---------+ + + + + | Closed | Other | Pain | Diagnoses | Emmy | Milk Driver Chh1 | | | | Management | | [place], | [address] | | | | | Radiculopath | Sulaiman G, | [address] | | | | | y, cervical | MD [address] | for Health | | | | | region Low | [address] | and Healing, | | | | | back pain | [place], | Building | | | | | Fibromyalgia | [place] | [address] | | | | | [facility] | [address] | [place], [place] | | | | | disease, | Phone: | [phone] | | | | | bilateral | [phone] | Phone: | | | | | Rheumatoid | Fax: | [phone] | | | | | arthritis, | [phone] | Fax: | | | | | unspecified | | [phone] | | | | | | | | | | | | Postlaminect | | | | | | | toya | | | | | | | syndrome, | | | | | | | not | | | | | | | elsewhere | | | | | | | classified | | | +--------+---------+ + + + + Encounter Details +--------+---------+ + + + | Date | Type | Department | Care Team | Description | +--------+---------+ + + + | 02/05/ | Office | [facility] | Shalonda Garcia, | Post laminectomy | | 2017 | Visit | Pain Center at | OFFSET PRESS OPERATOR [address] | syndrome (Primary | | | | [place] | [place], [place] | Dx); Intractable | | | | [address] | [address] | chronic migraine | | | | Counselor for [facility] | [phone] | without aura and | | | | and Healing, | | with status | | | | | | migrainosus; | | | | Floor [place], [place] | | Fibromyalgia | | | | [address] | | | | | | [phone] | | | +--------+---------+ + + + [...] in this encounter Patient Instructions Patient Instructions Riley Kathleen - 02/05/2017 1:35 PM PDTGulshana, It was good to meet you today. Thank you for taking the time to see us in the [facility] today. We look forward to working with you in the future. As a reminder, this clinic generally does not prescribe or dispense medications. We will send a copy of our no nader, including detailed recommendations, to your primary care provider (PCP). Any prescript ions will need to come from that provider. Please contact their office within the next few d ays to make an appointment to get started with our recommendations. Below is a short summar y of what we discussed today for your reference. - Discuss with your PCP, a referral to [facility] for discussion regarding spinal cord stimulator Shalonda Mustafa DNP, OFFSET PRESS OPERATOR-C [facility] [address] [place] [address] documented in this encounter Progress Notes Jing Holloway - 02/05/2017 1:35 PM PDT Date: 02/05/2017 was referred for pain management consultation by Sulaiman Whitlock MD [address] [place] [id number] Reason for consult: cervical radiculopathy, low back pain, post laminectomy syndrome, fibro myalgia, RA Chief Complaint Patient presents with Neck pain Migraine Shoulder pain Pain In Right Arm History of Present Illness: Belinda Meehan is a 57 year old female with a longstanding hi story of constant, sharp, achy, stinging, burning, throbbing and shooting pain located in th e back and goes down both legs. Her pain is made worse by bending backward, bending forward, climbing stairs, cold, lifting, looking down, sitting too long and standing. Her pain is im proved by bath/shower, heat, medications, meditation and relaxation. She is here today to inquire about establishing care with a provider that will take over pr escribing her pain medication. Currently, her medications are managed by her primary care pr magdy in [facility]. This provider is currently in the process of re-opening a new clinic and may be available to see patients next month. She reports that this provider d oes not wish to continue prescribing her pain medication and has instructed her to find anot her provided to take over her pain prescriptions. She was previously a patient at a pain cli brigida in [facility], however her insurance changed and she no longer has coverage at this clinic. She is hesitant to seek care with providers near her home in [facility], citing a neg ative experience with a provider the discontinued her propranolol suddenly. She reports serjio valdivia on propranolol for over 20 years and suddenly stopping this medication caused her to have an adverse reaction and she require emergency medical attention and "liquid defibrillation" in the ambulance. She reports being started on the Butrans in the last year. She was switched to Butrans from Fentanyl patches. She mentions the Fentanyl patches were not working to control her pain. S he reports that her pain has become worse in the last year. She describes radiating pain nell n both her legs. This pain prevents her from being able to perform routine tasks such as [employer]. She feels she is at the point where is not able to determine which medications are hel pful in improving her pain. She endorses incontinence symptoms. She reports there are "days I just want to " because her pain is so bad. 's treatment for this pain complaint has included: MEDICATIONS: - Gabapentin - [place] - Butran - Cymbalta - Fentanyl Patches NON-MEDICATION THERAPIES: - Physical Therapy - Exercise - Heat/Ice - Pool Therapy - Brace/Support - TENS INTERVENTIONS: - Spinal surgery x3, Laminectomy unknown level - Epidural Steroid Injections - Trigger Point Injections lives in a single family home in [place], [place]. She is not currently working , she receives disability. As a result of her pain, notes multiple changes in her life, including limiting her ability to perform routine tasks. 's goals from today's appointment include: consultation only (advice only to you and your primary care physician), counseling, drug treatment, help in coping with the pain a nd stress management. 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 Brief Pain Inventory: (ten= worst possible pain or complete interference) Right Now: 9 Least in 24 hours: 4 Worst in 24 hours: 10 Average: 8 % Relief (med/treat): 40 General Activity: 7 Mood: 9 Walking Ability: 10 Normal Work: 10 Relations with Others: 10 Enjoyment of Life: 9 Sexual Activity: 10 Sleep: 10 Past Medical History: Diagnosis Date Abdominal pain Hx of gastric bypass Asthma 493.9 Benign tumor of colon 2006 endoscopy Chronic abdominal pain on Oxycodone, NSAIDs, ASA RUQ u/s at OSH reportedly nl panc, bile ducts, liver; ct abd/pel normal, Colorectal polyps COPD (chronic obstructive pulmonary disease) (HCC) CVA (cerebral vascular accident) ([facility]) Fibromyalgia 07/25/2008 Craniocervical junction appears stenotic in cervical extension. Headache HTN (hypertension) Hypothyroidism 11/11/2006 IBS (irritable bowel syndrome) Internal hemorrhoid Kidney stone Major depressive disorder, recurrent episode, moderate ([facility]) 07/31/2006 Metabolic syndrome X 250.80 Metabolic syndrome X 250.80 Optic nerve hemorrhage left eye Other general symptoms Pneumonia PUD (peptic ulcer disease) RA (rheumatoid arthritis) ([facility]) Radiculitis, lumbosacral 03/03/2008 Reduced vision Scoliosis Sleep apnea Spondylosis with myelopathy, lumbar region 07/02/2006 Vertebral fracture T7,8,9 Xray T spine 2003 Past Surgical History Procedure Laterality Date Salpingo-oophorectomy Colonoscopy 03/2006 Tonsillectomy Pr d&c after delivery Pr inject trigger point, 1 or 2 Knee replacement 02/2007 Left knee Knee replacement 08/2007 right knee Lumbar fusion 05/2008, '11 & '12 [id number] with bone spur removals Appendectomy Cholecystectomy section Hysterectomy Gastric bypass Mayra Padgett wt 278 01/18 Paniculectomy Elbow surgery Family History Problem Relation Cancer Mother Additional Family History Mother Migraine Arthritis Mother Allergies Mother Heart Disease Mother Thyroid Mother Heart Disease Father Additional Family History Father Migraine Arthritis Father Arthritis Sister Arthritis Brother Arthritis Maternal Grandmother Allergies Maternal Grandmother Heart Disease Maternal Grandmother Thyroid Maternal Grandmother Arthritis Maternal Grandfather Allergies Maternal Grandfather Asthma Maternal Grandfather Heart Disease Maternal Grandfather Stroke Maternal Grandfather Arthritis Paternal Grandmother Allergies Paternal Grandmother Heart Disease Paternal Grandmother Stroke Paternal Grandmother Arthritis Paternal Grandfather Allergies Paternal Grandfather Heart Disease Paternal Grandfather Stroke Paternal Grandfather Allergies Sister History Alcohol Use No History Drug Use No Social History Social History Narrative On medicare. . Two sons. Allergies Allergen Reactions Levaquin [Levofloxacin] Hives and Pruritus Amitriptyline Grand mal seizures Cipro [Ciprofloxacin] Clarithromycin Hives Mainly in the legs Clindamycin Codeine Egdqzbi-Hrmtsfqwig-Cft-Caff Balance problems Fioricet W/Codeine [Rkgcrkxpvi-Qhjbnrwtfh-Woh-Cod] Keflex [Cephalexin] Ketorolac Unknown Morphine IM ( only in [facility]) made gut pain worse 08/27/06: Trial of oral MSIR caused leg swelling Penicillins Sulfa (Sulfonamide Antibiotics) Sulfamethoxazole-Trimethoprim Unknown Tramadol Tramadol Hcl Unknown Current Medication List Name Sig BETAXOLOL 0.25 % EYE DROPS,SUSPENSION 1-2 drops two times daily. BUPRENORPHINE 15 MCG/HOUR WEEKLY TRANSDERMAL PATCH Apply 15 mcg to skin every seven days. CALCIUM 600 WITH VITAMIN D OR 1000 [...] 900 mg by mouth three times daily. HYDROCODONE 10 MG-ACETAMINOPHEN 325 MG TABLET Take 1 tablet by mouth every six hours as nee ded. LEVOTHYROXINE 75 MCG TABLET Take 75 mcg by mouth once daily. MECLIZINE 25 MG TABLET Take 25 mg by mouth three times daily as needed for nausea/vomiting. METHOCARBAMOL 750 MG TABLET Take 1 tablet by mouth three times daily. METOPROLOL TARTRATE 50 MG TABLET Take 50 mg by mouth three times daily. MULTIVITAMIN TABLET 1 tab by mouth twice daily NITROGLYCERIN 0.[address] 0.4 mg under tongue every five minutes as need ed for chest pain. Place under tongue and allow to dissolve. Administer every 5 minutes, ma x of 3 doses in 15 minutes. OMEPRAZOLE 20 MG CAPSULE,DELAYED RELEASE Take 20 mg by mouth two times daily. ONDANSETRON 4 MG TABLET DISSOLVED ON THE TONGUE Take 4 mg by mouth every twelve hours as ne eded. POTASSIUM CHLORIDE ER 20 MEQ TABLET,EXTENDED RELEASE(PART/CRYST) take 3 tablet (20meq) by o ral route twice daily with food ROPINIROLE 1 MG TABLET Take 2 mg by mouth once daily in the evening. SUCRALFATE 1 GRAM TABLET Take 1 Tab by mouth before meals. TOPIRAMATE 50 MG TABLET Take 50 mg by mouth two times daily. TORSEMIDE 5 MG TABLET Take 20 mg by mouth once daily. TRAVOPROST 0.004 % EYE DROPS 1 drop once daily in the evening. Radiology/Diagnostic Tests: ROS Constitutional: Positive for malaise/fatigue and weight loss. HENT: Positive for headaches. Eyes: Positive for blurred vision and pain. Respiratory: Sleep apnea Cardiovascular: Positive for leg swelling. HTN Gastrointestinal: Positive for abdominal pain, diarrhea, heartburn, nausea and vomiting. Musculoskeletal: Positive for back pain, falls and joint pain. Neurological: Positive for dizziness, tremors and weakness. Psychiatric/Behavioral: Positive for memory loss. The patient is nervous/anxious. All other systems reviewed and are negative. BP 122/69 | Pulse 63 | RR 15 | Ht 1.727 m (5' 8") | Wt 93.9 kg (207 lb) | SpO2 97% | BMI 31 .47 kg/(m^2) Physical Exam Constitutional: She is well-developed, well-nourished, and in no distress. No distress. HENT: Head: Normocephalic and atraumatic. Right Ear: External ear normal. Left Ear: External ear normal. Eyes: Conjunctivae and EOM are normal. Cardiovascular: Normal rate. Pulmonary/Chest: Effort normal. Abdominal: She exhibits no distension. Musculoskeletal: GAIT & STATION: Ambulates with cane Myofascial tenderness: Tender to palpation over entire body Manual tender point survey: manual tender points positive Neurological: She is alert. Sensory examination: deficit in L5 dermatomal distrubution Straight Leg Raise (estimated degrees): Left: asymptomatic and pain radiating to knee Right: asymptomatic and pain radiating to foot Skin: Skin is warm and dry. She is not diaphoretic. No erythema. Psychiatric: Affect normal. Tearful Vitals reviewed. Neurologic Exam Cranial Nerves CN III, IV, Extraocular motions are normal. Ortho Exam Patient Active Problem List Diagnosis Metabolic syndrome X 250.80 Essential hypertension Asthma 493.9 Myalgia and myositis Abnormal glucose Iron deficiency Major Depressive Disorder, Recurrent Episode, Moderate Adjustment Disorder with Anxiety Hypothyroidism Encounter for long-term (current) use of medications LBP (low back pain) Osteopenia Spinal Fusion Lumbar spine Chronic Bilateral Shoulder Pain Coccydynia S/P Gastric Bypass Surgery November 22, 2003 Fibromyalgia Muscle Strain hips Neck pain Radicular pain in left arm Anal or rectal pain Falling IGT (impaired glucose tolerance) Post laminectomy syndrome Chronic migraine without aura, with status migrainosus Visit Diagnoses: M96.1 Post laminectomy syndrome G43.711 Intractable chronic migraine without aura and with status migrainosus M79.7 Fibromyalgia For today's evaluation, I have included my personal review of Ms. Meehan's history and phy sical examination. I also used the following components in my medical decision making: Laboratory studies reviewed. Radiology Reports reviewed. Review and summary of old medical records (source: [employer]), as summarized in the body of the note. Impression: Ms. Belinda Meehan is a 57 y.o. female with longstanding history of chronic pain secondar y to fibromyalgia, rheumatoid arthritis and post laminectomy syndrome. She is here today to inquire about establishing care with a provider that will take over pr escribing her pain medication. Currently, her medications are managed by her primary care pr magdy in [facility]. She reports that this provider does not wish to continue prescribing her pain medication and has instructed her to find another provided to take over her pain prescriptions. I informed Ms. Meehan that we do not as a clinic prescribe medicat ions, although I would be willing to helping with a taper. She was not interested in this. As she has had multiple spinal surgeries and has continued to have pain that has not been c ontrolled with medication, I do not recommend further interventional treatments for her low back pain. However, we did discuss the option of treatment with a spinal cord stimulator. I recommend that she pursue this with a provider closer to her home as this process requires m ultiple visits and close follow up. Recommendation/Plan: - Sulaiman Whitlock MD may consider a referral to [facility] for discu ssion regarding spinal cord stimulator -No follow up needed at this time 02/05/2017: IKathleen, am functioning as a medical field representative for JIMBO Dutta DNP-C I have reviewed and verified the above scribed note of my visit with this patient as record ed by Kathleen Riley. Shalonda Mustafa DNP, OFFSET PRESS OPERATOR-C [facility] [address] [place] [address] mMaris clark MA - 02/05/2017 1:35 PM PDT Review of Systems Constitutional: Positive for malaise/fatigue and weight loss. HENT: Positive for headaches. Eyes: Positive for blurred vision and pain. Respiratory: Sleep apnea Cardiovascular: Positive for leg swelling. HTN Gastrointestinal: Positive for abdominal pain, diarrhea, heartburn, nausea and vomiting. Musculoskeletal: Positive for back pain, falls and joint pain. Neurological: Positive for dizziness, tremors and weakness. Psychiatric/Behavioral: Positive for memory loss. The patient is nervous/anxious. All other systems reviewed and are negative. Physical Exam Ortho Exam Neurologic Exam docum ented in this encounter Plan of Treatment Not on filedocumented as of this encounter Visit Diagnoses + + | Diagnosis | + + | Post laminectomy syndrome - Primary Postlaminectomy syndrome, unspecified region | + + | Intractable chronic migraine without aura and with status migrainosus Chronic | | migraine without aura, with intractable migraine, so stated, with status migrainosus | + + | Fibromyalgia Mylagia and myositis, unspecified | + + documented in this encounter
--- OUTSIDE RECORDS SUMMARY | ~2020-01-25 | XMS | Encounter Summary ---
Demographics + + + | Address | [address] | | | [place] [address] | + + + | Home Phone [...] Team Providers + +------+ + | Care Mold Machine Operator Name | Role | [...] + | 08/31/ | Refill | [facility] | [place], | Medication Refill | | 2017 | | MEDICINE [address] | MD [place] | | | | | [place], | [address] | | | | | [place] [address] | [place] [address] | | | | | [phone] | [phone] | | | | | | | [...] Quantity: unknown Pharmacy: [facility] in [place] Call/Mail/Setter Machine/Fax: maintenance and custodian supervisor Date of Last Refill: 07/25/17 Date of [...] SYSTEM | | | | | | [place] [address] | | | | | | [phone] | | | | | | | | +--------+---------+ + + + documented as of this encounter Visit Diagnoses + + | Diagnosis | + + | Chronic bilateral low back pain without sciatica | + + documented in this encounter"
--- OUTSIDE RECORDS SUMMARY | ~2020-01-25 | XMS | Encounter Summary ---
Demographics + + + | Address | [address] | | | [place] [address] | + + + | Home Phone [...] Team Providers + +------+ + | Care Prop Drawer Name | Role | Phone | [...] | | | [facility] | [facility] [place] | Episode, Moderate | | | | and Healing, | [address] | [facility] Chronic | | | | Building | [phone] | Abdominal Pain; | | | | Floor [place], [place] | | Cervical Pain; | | | | [address] | | Headache; Adjustment | | | | [phone] | | Disorder with | | | [...] Notes Lukasz Charles - 05/29/2006 6:15 PM [facility] Initial Psychological Wendy luation IDENTIFYING INFORMATION: Belinda Meehan is a 46 y.o. female Date of : 1960 Consulting Physician: LUKASZ CHARLES PHD Consultation Date: 05/29/2006 Referring Provider: Carlos Arreola Identifying Information: Belinda Meehan is a 46 y.o. female who lives in [place] her 2 sons. The patient was referred for pain management evaluation by Dr. Arreola. Informed consent and limits of confidentiality were discussed prior to the interview. Presenting Problem: Beilnda Meehan reported having head, abdominal, back and [...] disability benefits. 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 Marital History: , not currently in [...] and decreasing depression and anx iety. Diagnosis: Warner I: 1. (296.32) Major depressive disorder, recurrent, moderate. 2. (309.24) Adjustment disorder with anxiety. 3. (307.89) Chronic pain disorder associated with both psychological factors and a gene ral medical condition. Warner II: Deferred Warner III: abdominal pain, migraine headache, low back pain. Warner IV: low finances Warner V: GAF 50 Recommendations: 1. Psychological counseling to increase knowledge and use of cognitive and behavioral pain coping skills is recommended. The treatment should include relaxation training to improve c ontrol over physiologic responses to pain. Treatment should also focus on decreasing sympto ms of depression and increasing participation in social, recreational and leisure activities . Ms. Meehan lives a long way from [place] but she has a residential driver provided by the [employer] she stated that she would like to [...] interpretation. LUKASZ CHARLES PHD [facility] [facility] [place] [place] [facility], 4th [place] [address] documented in this encount er Plan of Treatment + + +--------+ + + | Name | Type | Priori | Associated Diagnoses | Order Schedule | | | | ty | | | + + +--------+ + + | [facility] | Procedures | Routin | Major [...]
--- OUTSIDE RECORDS SUMMARY | ~2020-01-25 | XMS | Encounter Summary ---
Demographics + + + | Address | [address] | | | [place] [address] | + + + | Home Phone [...] Team Providers + +------+ + | Care Keypunch Operators Supervisor Name | Role | Phone [...] + + | 03/30/ | Telephone | [facility] | [place], | Appointment | | 2018 | | MEDICINE [address] | MD [place] | | | | | [place], | [address] [facility] | | | | | [place] [address] | [place] [address] | | | | | [phone] | [phone] | | | | | | | [...] [place] | | | | | | [facility] [address] | | | | | | [place] [address] | | | | | | [phone] | | | | | | | | +--------+---------+ + + + documented as of this encounter Visit Diagnoses Not on filedocumented in this encounter"
--- OUTSIDE RECORDS SUMMARY | ~2020-01-25 | XMS | Encounter Summary ---
Demographics + + + | Address | [address] | | | [place] [address] | + + + | Home Phone [...] Team Providers + +------+ + | Care Iron Guardrail Installer Name | Role | Phone | [...] | | | | [address] | [address] Phone: | | | | | | [place], | [phone] | | | | | | [place] | Fax: | | | | | | [address] | [phone] | | | | | | Phone: | | | | | | | [phone] | | | | | | | Fax: | | | | | | | [phone] | | +--------+--------+ + + + + Encounter Details +--------+---------+ + + + | Date | Type | Department | Care Team | Description | +--------+---------+ + + + | 11/28/ | Office | [facility] | Carlos Hsieh | NO SHOW (Primary Dx) | | 2014 | Visit | PHYSIATRY [address] | | | | [address] | [place], [place] | | | | | [place], [place] | [address] | | | | | [address] | | | | | | [phone] | Joe, | | | | | | MARY Montero [address] | | | | | | [address] | | | | | | [place] [address] | | | | | | [phone] | | | | | | | [...] | | | | | [place] [address] | | | | | | [phone] | | | | | | | | +--------+---------+ + + + documented as of this encounter Visit Diagnoses + + | Diagnosis | + + | No Show - Primary Code used for vists where the patient is not seen | + + documented in this encounter"
--- OUTSIDE RECORDS SUMMARY | ~2020-01-25 | XMS | Encounter Summary ---
Demographics + + + | Address | [address] | | | [place] [address] | + + + | Home Phone [...] Team Providers + +------+ + | Care Ichthyology Teacher Name | Role | Phone | + +------+ + | Sulaiman Carrera MD | PCP | | + +------+ + Encounter Details +--------+ + + + + | Date | Type | Department | Care Team | Description | +--------+ + + + + | 06/12/ | Telephone | [facility] | Chris Padgett, | | | 2008 | | [place] [address] | [address] [facility] | | | | | Bethanie Mailcode: CH4S | [address] | | | | | [facility] | [place], [place] | | | | | and Healing, | [address] | | | | | [facility] [address]th | [phone] | | | | | Floor [place], [place] | | | | | | [address] | | | | | | [phone] | | | +--------+ + + + [...]
--- OUTSIDE RECORDS SUMMARY | ~2020-01-25 | XMS | Encounter Summary ---
Demographics + + + | Address | [address] | | | [place] [address] | + + + | Home Phone [...] Providers + +------+ + | Care Digital Account Executive Name | Role | Phone [...] Other (wondering | | 2008 | | [place] [address] | [address] | ablout colonoscopy) | | | | Ave Mailcode: CH4S | [facility] | | | | | [facility] | [place], [place] | | | | | and [place], | [address] | | | | | [facility] | [phone] | | | | | [place], [place] | | | | | | [address] | | | | | | [phone] | | | +--------+ + + + [...]
--- OUTSIDE RECORDS SUMMARY | ~2020-01-25 | XMS | Encounter Summary ---
Demographics + + + | Address | [address] | | | [place] [address] | + + + | Home Phone [...] Providers + +------+ + | Care Lead Electrician Name | Role | Phone | [...] | | | | | Encounter | [place] | | | | | for | [address] | [address] | | | | | long-term | | Phone: | | | | | (current) | | [phone] | | | | | use of other | | Fax: | | | | | medications | | [phone] | | | | | LBP (low [...] | Diagnoses | Paco, | Fili Pt Block Hand | | | | Therapy | Myalgia and | Rosi T, ANP | [facility] [address] | | | | | myositis, | [address] | | | | | unspecified | [address] | Mailcode: | | | | | LBP (low | [place], [place] | [facility] | | | | | back pain) | [address] | for Health | | | | | Chronic | | and Healing, | | | | | shoulder | | Building 1 | | | | | pain Muscle | | [place], [place] | | | | | strain | | [address] | | | | | Radicular | | Phone: | | | | | pain in left | | [phone] | | | | | arm Neck [...] | | pain | [place], [place] | [place], [place] | | | | | | [address] | [address] | | | | | | Phone: | | | | | | | [phone] | | | | | | | Fax: | | | | | | | [phone] | | +--------+--------+ + + + + Encounter Details +--------+---------+ + + + | Date | Type | Department | Care Team | Description | +--------+---------+ + + + | 04/05/ | Office | [facility] Comprehensive | Rosi Antonio, | LBP (low back pain) | | 2012 | Visit | Pain Center at | ANP | (Primary Dx); | | | | [facility] | | Fibromyalgia | | | | [address] | | syndrome 729.1; | | | | [facility] | | Encounter for | | | | and Healing, | | Long-Term (Current) | | | | Building | | Use of Opioids; | | | | Floor [place], [place] | | Chronic Bilateral | | | | [address] | | Shoulder Pain; | | | | [phone] | | Muscle Strain hips; | | [...] to discuss these treatment options. Consult to [facility] physical therapy: A supervised physical therapy [...] you have questions or concerns. [facility] [address] Mail Code: [place] [address] documented in this encounter Progress Notes Rosi Antonio ANP - 04/05/2013 9:28 AM PDTFormatting of this note might be different fro m the original. [facility] Office Visit 04/05/2013 Belinda Meehan; ; : 1960 Ms. Meehan was referred for pain management consultation by Taqueria Raman NP [address] [place] [address] Chief Complaint Patient presents with New patient [...] to taper off gabapentin 2. Order for [facility] neurology Dr. Taniya Guerrero if falls [...] Dr. Lit Cintron in [place] at the [facility] and had good [...] included: Epidural steroid injections she received in [place] and helped for a short time CAMPUS DIRECTOR Brief Pain Inventory: (ten= worst possible pain [...] right knee Lumbar fusion 05/2008 & 2011 L5-I1sgocic with bone spur removals Appendectomy Cholecystectomy section [...] Hives Mainly in the legs Clindamycin Codeine Iqbpkhy-Gecwldsbjc-Mnv-Caff Balance problems Fioricet W/Codeine (Bvgvdastat-Ltuudakmhe-Pqq-Cod) Keflex (Cephalexin) Morphine IM ( only in [facility] [...] levels. As part of today's visit the [facility] new patient questionnaire was review [...] you expect from your visits to the [facility] ? Don't know BP 127/59 [...] Overview Note: Surgery 05/15/08 Dr Ricky Garnett [facility] to get operative reports Osteopenia 08/24/2007 LBP [...] before her lumbar surgeries and recently in [place]. She has short-term relief from the se treatments. I would like her to return to see Dr. Murali Montero to discuss these treatment options. Consult to [facility] physical therapy: A supervised physical therapy [...] cord stimulator option. We suggested that Ms. Meeahn discuss our consultation findings with her PCP, Sulaiman Whitlock MD and other involved health care providers. Thank you for this referral, it is my privilege to be part of [place]'s health care team. Pl ease free to contact me at any time if you have questions or concerns. I spent 30 minutes with the patient of which more than 50% was spent rhjzj-sx-ajxz in [facility] pain questionnaire, medical record, consultation, discussion, addressing questions and counselling/education. [facility] [address] Mail Code: [place] [address] mith, Maris Lopez MA - 04/05/2013 8:25 [...]
--- OUTSIDE RECORDS SUMMARY | ~2020-01-25 | XMS | Encounter Summary ---
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 1960 Start of Care: 06/23/2006 Referring Provider: [...] 05/29/2006 Insurance: Medicare Number of used/authorized visits: 6 Medicare certification from: 08/13/2006 through 09/12/2006 Subjective: [...] and when she is finished at the [facility] with physical therapy advised to become [...] + + +--------+ + + | [facility] | Procedures | Routin | Spondylosis [...]
--- OUTSIDE RECORDS SUMMARY | ~2020-01-25 | XMS | Encounter Summary ---
Demographics + + + | Address | [address] | | | [place] [address] | + + + | Home Phone [...] Author | [facility] | | | [...] Team Providers + +------+ + | Care Plaster Machine Operator Name | Role | Phone [...] + + | 12/13/ | Telephone | [facility] | Alanis, | Follow-up | | 2018 | | MEDICINE [address] | MD Petrnoa | | | | | [place], | [address] [facility] | | | | | [place] [address] | [place] [address] | | | | | [phone] | [phone] | | | | | | | [...] her xray reports that were send from [facility]. Records are in chart now. Patient wants to know if an construction project assistant provider can review them since pcp is [...] | | | | | [place] [address] | | | | | | [phone] | | | | | | | | +--------+---------+ + + + documented as of this encounter Visit Diagnoses Not on filedocumented in this encounter"
--- OUTSIDE RECORDS SUMMARY | ~2020-01-25 | XMS | Encounter Summary ---
Demographics + + + | Address | [address] | | | [place] [address] | + + + | Home Phone [...] Providers + +------+ + | Care Inspector Line Name | Role | Phone | + +------+ + | Sulaiman Carrera MD | PCP | | + +------+ + Encounter Details +--------+ + + + + | Date | Type | Department | Care Team | Description | +--------+ + + + + | 09/10/ | Ancillary | Registration [address] | Beto Meeks MD | | | 2004 | Registratio | [facility] | [address] | | | | n | [place] Mailcode: RPB07 | [place], [place] | | | | | [place], [place] | [address] | | | | | [address] | [phone] | | | | | [phone] | | | +--------+ + + + [...] + + + + | [facility] | [address] | [place] [address] | | | LABORATORY | | | [...] + + + | [facility] | [address] [facility] | [place] [address] | | | PATHOLOGY | [address] | | | + + + + + | [facility] | [address] [facility] | [place] [address] | | | PATHOLOGY | [address] [...] HEALTH CENTER DEPARTMENT OF | [address] | [place] [address] | | | PATHOLOGY | [address] | | | + + + + + | [facility] DEPARTMENT OF | [address] | [place] [address] | | | PATHOLOGY | [address] [...] DEPARTMENT OF | [address] | [place] [address] | | | PATHOLOGY | [address] | | | + + + + + | [facility] DEPARTMENT OF | [address] | [place] [address] | | | PATHOLOGY | [address] | | | + + + + + documented in this encounter Visit Diagnoses Not on filedocumented in this encounter"
--- OUTSIDE RECORDS SUMMARY | ~2020-01-25 | XMS | Encounter Summary ---
Demographics + + + | Address | [address] | | | [place] [address] | + + + | Home Phone [...] | | + + +---------+ + | MarcoA ntonio Wells | ECON | Unknown | | + + +---------+ + Care Team Providers + +------+ + | Care Certified Medical Coding Specialist Name | Role | Phone | [...] + | 12/10/ | Office | [facility] | Alanis, | Elevated liver | | 2018 | Visit | MEDICINE [address] | MD Petrona | enzymes (Primary | | | | [address] [place], | [address] [place] | Dx); Limb cramps; | | | | [place] [address] | [place] [address] | Physical | | | | [phone] | [phone] | deconditioning; | | | | | [...] in this encounter Maggie Mc LPN - 12/10/2017 9:30 AM PDT Administrations [...] Refill Abdominal Pain Spasms legs and hips [facility] Belinda Meehan is a 57 [...] is interested in doing physical therapy in [place], pool therapy has helped in the pas [...] mcg 1,000 mcg Intramuscular Q30 Days Cla carolu-Russell Thapa MD 1,000 mcg at 11/17/17 1116 ALLERGIES Allergies Allergen Reactions Codeine Sulfate Nausea Only Levofloxacin Hives, Itching and Rash Amitriptyline Hcl Other (See Comments) Confused and questionable for seizures Eeieixstmy-Jomp-Tiesgslz Cephalexin Hives Duloxetine Migraines and nausea Ketorolac Hives Morphine Swelling Ropinirole Hcl Hives Tramadol Hcl Nausea Only Ivvvcaycdl-Otix-Uwzvygjx Hives and Rash Ciprofloxacin Hives and Rash [...] Note: Parts of this documentwere created using Relay speech recognition software. As a r esult, [...] | | | | | [place] [address] | | | | | | [phone] | | | | | | | [...] + | [facility] | [address] | [place] | [phone] | | [facility] | | [address] | | | - LABORATORY | | | | + + + + + Magnesium (12/10/2017 10:30 AM PDT) + +-------+ + + + | Component | Value | Ref Range | Performed | Pathologist | | | | | At | Signature | + +-------+ + + + | Magnesium | 2.4 | 1.8 - 2.5 mg/dL | [facility] | | | | [...] ST. | [address] | [place] | [phone] | | [facility] | | [address] | | | - LABORATORY | | [...] | | | | > 0.9 The [facility] | | | | | | recommends that a | | | | | | positive HCV antibody | | | | | | result be followed up | | | | | | with a HCV Nucleic Acid | | | | | | Amplification test | | | | | | ([id number]). | | | | + + + + + + + + | Specimen | + + | Blood | + + + + + | Narrative | Performed At | + + + | Performed at: [address] [facility] [address], | REFERENCE LAB | | [place], [place] [id number] Sales Project Manager: Bandar Gan MD, Phone: | MARIANNA - [place]UEL[place] | | [phone] | | + + + + + + + + | Performing | Address | City/State/Zipcode | Phone Number | | Organization | | | | + + + + + | REFERENCE LAB | [address] | [place], [place] | [phone] | | [facility] | [facility] | [address] | | + + + + + [...]
--- OUTSIDE RECORDS SUMMARY | ~2020-01-25 | XMS | Encounter Summary ---
Demographics + + + | Address | [address] | | | [place] [address] | + + + | Home Phone [...] Providers + +------+ + | Care Leasing Specialist Name | Role | Phone | + +------+ + | Maria Esther Cintron MD | PCP | | + +------+ + Encounter Details +--------+ + + + + | Date | Type | Department | Care Team | Description | +--------+ + + + + | 10/27/ | Telephone | [facility] | Chris Padgett, | | | 2008 | | [place] [address] | [address] [facility] | | | | | [place] Mailcode: CH4S | Naeem Mcrae | | | | | Center for [facility] | [place], [place] | | | | | and Healing, | [address] | | | | | Building , 6th | [phone] | | | | | Floor [place], [place] | | | | | | [address] | | | | | | [phone] | | | +--------+ + + + [...]
--- OUTSIDE RECORDS SUMMARY | ~2020-01-25 | XMS | Encounter Summary ---
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 2. May continue with Pax NTE 4 per day as prescribed 3. Continue with PT and PSychology as scheduled 4. Follow up to review medications on 09/09/06 and call with any concerns or questions. 5. Continue with Trileptal 150mg 1 1/2 tablet twice a day documented in this encounter Progress Notes Delfina Molina - 08/26/2006 9:44 AM PDTFormatting of this note might be different from lesli gomez. 08/26/2006 Belinda Meehan is a 46 y.o. female [facility] Comprehensive Pain Center Return Visit [...] Dr. Morales in orth opedics at [facility], she reports that surgery is [...] swelling has resolved. Belinda has been using Pax 10/325 an average of 5 tablets per day. 1 tablet has an effecti ve duration of 5 hours "pain breaks through at about 4 hours", she reports taking a Pax ev eduardo 5 hours. She denies any [...] Time Resulting Agency 07/30/2006 4:00 PM [facility] DEPARTMENT OF PATHOLOGY Component Results [...] previous 6 days. 2. May continue with Pax NTE 4 per day as prescribed 3. Continue with PT and Psychology as scheduled. 4. Continue with Trileptal 150mg 1 1/2 tablet twice a day 5. Follow up to review medications on 09/09/06 and call with any concerns or questions. DELFINA MOLINA [facility] Comprehensive Pain Center Mail code CH 4P [facility] and [address] [address] Ailyn Foster - 08/27/19 9:09 [...] medication refills today? yes [facility] Plan of Treatment Not on filedocumented as [...]
--- OUTSIDE RECORDS SUMMARY | ~2020-01-25 | XMS | Encounter Summary ---
Demographics + + + | Address | [address] | | | [place] [address] | + + + | Home Phone [...] Team Providers + +------+ + | Care Deployment Technician Name | Role | Phone | + +------+ + | Petrona Thapa | PCP | | | MD | | | + +------+ + Reason for Visit + +--------+ + | Reason | Onset | Comments | | | Date | | + +--------+ + | Toe Pain | 08/24/ | | | | 2018 | | + +--------+ + Encounter Details +--------+ + + + + | Date | Type | Department | Care Team | Description | +--------+ + + + + | 08/24/ | Telephone | [facility] | Alanis, | Toe Pain | | 2018 | | MEDICINE [address] | MD Petrona | | | | | [place], | [address] [facility] | | | | | [place] [address] | [place] [address] | | | | | [phone] | [phone] | | | | | | | [...] Telephone Encounter - Maggie Montoya LPN - 08/24/2018 4:50 PM PDTPatient notified of x-ray order faxed to [facility] 19 4:51 PM PDTTelephone Encounter - Petrona Thapa MD - 08/24/2018 4:16 PM P DTMay print & fax x-ray order.Electronically signed by Petrona Thapa MD at 05/2019 4:17 PM PDTTelephone Encounter - Juliane Elena - 08/24/2018 3:03 PM PDTReceived a call from patient asking to speak to the nurse regarding her left toe, feels like it is "cr ushed". Has not been walking on foot, has been laying down. Asked for x-ray to be ordered an d sent to [facility] advise. documented in this encounter Plan of [...] | | | | | [place] [address] | | | | | | [phone] | | | | | | | [...] limb | + + documented in this encounter
--- OUTSIDE RECORDS SUMMARY | ~2020-01-25 | XMS | Encounter Summary ---
Demographics + + + | Address | [address] | | | [place] [address] | + + + | Home Phone [...] + +------+ + | Care Human Resources Trainee Name | Role | Phone | + [...] as of this encounter Progress Notes Interface, Touch Up Painter In - 06/23/2006 2:36 AM PST [id number] GEOVANNI [place]ELTON [place] [id number] Clinic Date: 05/05/2006 Clinic: Endocrinology Subjective: Belinda [...] replacement. Beto Meeks M.D. PD / HS [id number] / [id number] / [id number] / cc: Pedrito Gutierrez M.D. [address] [place] [address] Joanna Arshad M.D. [facility] Electronically signed by Beto Meeks 06-20-2006 11:48:11 PM documented i n this encounter Plan of Treatment Not on filedocumented as of this encounter Visit Diagnoses Not on filedocumented in this encounter"
--- OUTSIDE RECORDS SUMMARY | ~2020-01-25 | XMS | Encounter Summary ---
Demographics + + + | Address | [address] | | | [place] [address] | + + + | Home Phone [...] Team Providers + +------+ + | Care Preflight Inspector Name | Role | Phone | [...] | | | | Clinical Nutrition | [place], [place] | | | | | [address] | [address] | | | | | Loop Mailcode: OPC5 | [phone] | | | | | Outpatient Clinic | | | | | | [facility] | | | | | | [place] [address] | | | | | | [phone] | | | +--------+ + + + [...] + + + | [facility] | [address] | [place] [address] | | | LABORATORY | | | [...] | uIU/ml | | | | | [facility] | | | | | | Laboratories. | | | | + + + + + + + + | Specimen | + + | | + + + + + + + | Performing | Address | City/State/Zipcode | Phone Number | | Organization | | | | + + + + + | [facility] | [address] | [place] [address] | | | LABORATORY | | | [...] | + + + + + | [facility] | [address] | [place] [address] | | | LABORATORY | | | [...] | | | SERUM | performed by [facility] | | | | | | [facility] | | | | | | Laboratories. | | | | + + + + + + + + | Specimen | + + | | + + + + + + + | Performing | Address | City/State/Zipcode | Phone Number | | Organization | | | | + + + + + | [facility] | [address] | [place] [address] | | | LABORATORY | | | [...] + + | [facility] DEPARTMENT OF | [address] | [place] [address] | | | PATHOLOGY | [address] | | | + + + + + | [facility] | [address] | [place] [address] | | | PATHOLOGY | [address] | | | + + + + + documented in this encounter Visit Diagnoses Not on filedocumented in this encounter"
--- OUTSIDE RECORDS SUMMARY | ~2020-01-25 | XMS | Encounter Summary ---
Demographics + + + | Address | [address] | | | [place] [address] | + + + | Home Phone [...] Providers + +------+ + | Care Industrial Psychology Teacher Name | Role | Phone [...] | 01/17/ | Refill | [facility] | Alanis, | Medication Refill | | 2018 | | MEDICINE [address] | MD Petrona | | | | | [place], | [address] [facility] | | | | | [place] [address] | [place] [address] | | | | | [phone] | [phone] | | | | | | | [...] | | | | | [place] [address] | | | | | | [phone] | | | | | | | | +--------+---------+ + + + documented as of this encounter Visit Diagnoses Not on filedocumented in this encounter"
--- OUTSIDE RECORDS SUMMARY | ~2020-01-25 | XMS | Encounter Summary ---
Demographics + + + | Address | [address] | | | [place] [address] | + + + | Home Phone [...] Team Providers + +------+ + | Care Wild Life Manager Name | Role | Phone | [...] Rd | | | | | | [place], [place] | | | | | | [address] | | | +--------+ + + + [...] as of this encounter Progress Notes Interface, Engineering Agent In - 03/12/2007 2:28 AM PDT [id number] GEOVANNI Barnes [id number] Clinic Date: 02/23/2007 Clinic: Endocrinology Subjective: Belinda [...] performed next Thursday, March 01, 2007, in [place]. The right knee will be replaced in [...] patch 25 mcg for 72 hours. 2. [place]/acetaminophen 10 mg/325 mg, 1 every 6 hours [...] months. Beto Meeks M.D. PD / HS [id number] / [id number] / [id number] / [id number] cc: Pedrito Gutierrez M.D. [address] [place] [address] Chris Padgett M.D. Department of Surgery, [facility] Electronically signed by Beto Meeks 03-11-2007 04:41:13 PM nterface, Engineering Agent In - 03/12/2007 2:28 AM PDT [id number] GEOVANNI SKELTON J [id number] Clinic Date: 02/23/2007 Clinic: Endocrinology Belinda Meehan [...] her primary care provider, Dr. Gutierrez in [place]. She had a followup eye exam today, [...] replacement next Thursday (in 6 days) in [place], [place]. The right knee replacement tentatively will [...] as needed. Beto Meeks M.D. / SHARIF [id number] / [id number] / [id number] / [id number] cc: Pedrito Gutierrez M.D. [address] [place] [address] Joanna Arshad M.D. Electronically signed by Beto Meeks 03-11-2007 04:41:08 PM documented in this encounter Plan of Treatment Not on filedocumented as of this encounter Visit Diagnoses Not on filedocumented in this encounter"
--- OUTSIDE RECORDS SUMMARY | ~2020-01-25 | XMS | Encounter Summary ---
Demographics + + + | Address | [address] | | | [place] [address] | + + + | Home Phone [...] Providers + +------+ + | Care Steam Shovelman Name | Role | Phone | + +------+ + | Sulaiman Carrera MD | PCP | | + +------+ + Encounter Details +--------+ + + + + | Date | Type | Department | Care Team | Description | +--------+ + + + + | 01/29/ | Ancillary | Registration 3181 | Beto Meeks MD | | | 2005 | [facility] | [address] | | | | n | [place] Mailcode: RPB07 | [place], [place] | | | | | [place], [place] | [address] | | | | | [address] | [phone] | | | | | [phone] | | | +--------+ + + + [...] | | | | Test performed by [facility] | | | | | | Laboratories. | | | | + + + + + + + + | Specimen | + + | | + + + + + + + | Performing | Address | City/State/Zipcode | Phone Number | | Organization | | | | + + + + + | [facility] | [address] | [place], [place] | | | [facility] | | [address] | | + + + + + [...] uIU/ml | | | | | [facility] | | | | | | Laboratories. | | | | + + + + + + + + | Specimen | + + | | + + + + + + + | Performing | Address | City/State/Zipcode | Phone Number | | Organization | | | | + + + + + | [facility] | [address] | [place] [address] | | | LABORATORY | | | [...] BASO # | 0.0 | <0.3 | [facility] | | | | | | DEPARTMENT [...] + + + | [facility] DEPARTMENT OF | [address] [facility] | [place] [address] | | | PATHOLOGY | [address] | | | + + + + + | [facility] DEPARTMENT OF | [address] [facility] | [place] [address] | | | PATHOLOGY | [address] [...] DEPARTMENT OF | [address] | [place], [place] [address] | | | PATHOLOGY | [address] | | | + + + + + | [facility] DEPARTMENT OF | [address] | [place] [address] | | | PATHOLOGY | [address] [...] Performed At | + + + | [id number] Estimated GFR > 60 mL/min/1.73 sq m if non- | [facility] | | [id number] Estimated GFR > 60 mL/min/1.73 sq m [...] + + + | [facility] DEPARTMENT OF | [address] | [place] [address] | | | PATHOLOGY | [address] | | | + + + + + | [facility] DEPARTMENT OF | [address] | [place] [address] | | | PATHOLOGY | [address] | | | + + + + + documented in this encounter Visit Diagnoses Not on filedocumented in this encounter"
--- OUTSIDE RECORDS SUMMARY | ~2020-01-25 | XMS | Encounter Summary ---
Demographics + + + | Address | [address] | | | [place] [address] | + + + | Home Phone [...] Team Providers + +------+ + | Care Strategic Partner Development Manager Name | Role | Phone [...] | | | | [place], | [address] | | | | | | [place] | Phone: | | | | | | [address] | [phone] | | | | | | Phone: | Fax: | | | | | | [phone] | [phone] | | | | | | Fax: | | | | | | | [phone] | | +--------+ + + + + [...] + + | 04/18/ | Office | [facility] INTERNAL | Alanis, | Poor memory (Primary | | 2019 | Visit | MEDICINE [address] | MD [place] | Dx); [address] | | | | [address] [place], | [address] [facility] | deficiency; Fatty | | | | [place] [address] | [place] [address] | liver | | | | [phone] | [phone] | | | | | | | [...] Assessment ([facility]) Office Visit from 04/18/2019 in [facility] MEDICINE Visuospatial / Executive 4 Naming [...] COLONOSCOPY; Surgeon: Luther Brito MD; Location: [facility] MEDICAL PROCEDURE UNIT DILATION AND CURETTAGE OF UTERUS ELBOW SURGERY FINGER TRIGGER RELEASE 2002 FINGER TRIGGER RELEASE 2009 GASTRIC BYPASS SURGERY 2004 HYSTERECTOMY 05/14/1980 JOINT REPLACEMENT Bilateral 2006 2007 KNEE ARTHROSCOPY 2004 LAPAROSCOPY 01/27/2015 LAPAROTOMY 2008 ROTATOR CUFF REPAIR 2005 SPINE SURGERY TONSILLECTOMY 1964 UPPER GASTROINTESTINAL ENDOSCOPY N/A 12/18/2017 Procedure: EGD; Surgeon: Luther Brito MD; Location: [facility] MEDICAL PROCEDURE UNIT CURRENT MEDICATIONS [...] Allergen Reactions Ensure Diarrhea Food Diarrhea Lactose Phibjnbjkf-Ztu-Fake-Codeine Other (See Comments) Balance problems Codeine Sulfate Nausea Only Food Allergy Formula Diarrhea Ensure Levofloxacin Hives, Itching and Rash Butalbital Ropinirole Amitriptyline Hcl Other (See Comments) Confused and questionable for seizures Zhtmxctcie-Bfml-Qteobekm Rash duplicate Mvgrvctqvs-Finf-Nrqkhawx Hives and Rash Cephalexin Hives Ciprofloxacin Hives [...] 1. Parts of this documentwere created using [employer] speech recognition software. As a resu lt, there may be unintended word spelling errors. Every attempt was made to correct the di ctation. documentjennifer d in this encounter Plan of Treatment +--------+---------+ + + + | Date | Type | Specialty | Care Team | Description | +--------+---------+ + + + | 02/15/ | Office | Internal Medicine | Alanis, | | | 2019 | Visit | | MD [place] | | | | | | [address] [place] | | | | | | [place] [address] | | | | | | [phone] | | | | | | | | +--------+---------+ + + + + + +--------+ + + | Name | Type | Priori | Associated Diagnoses | Order Schedule | | | | ty | | | + + +--------+ + + | [facility] | Outpatient | Routin | Poor [...] 9 | 9 - 23 mg/dL | [facility] | | | | | | [facility] | | | | | | MEDICAL | | | | | | CENTER - | | | | | | LABORATORY | | + + + + + + | Creatinine | 0.80 | 0.55 - 1.02 | [facility] | | | | | mg/dL | [facility] | | | | | | MEDICAL | | | | | | CENTER - | | | | | | LABORATORY | | + + + + + + | eGFR, | >60Comment: GLOMERULAR | >=60 | [facility] | | | non- | FILTRATION | mL/min/1.73m2 | [facility] | | | [place]ian | RATE,ESTIMATED | | MEDICAL | | | | mL/min/1.71c7Gmmu than | | CENTER - | | [...] | bulin Ratio | | | [facility] | [...] [address] | [place] | [phone] | | [facility] | | [address] | | | - LABORATORY | | [...] + + | Performing | Address | City/State/Unm Hospitalcode | Phone Number | | Organization | | | | + + + + + | [facility] | [address] | [place] | [phone] | | [facility] | | [address] | | | - LABORATORY | | | | + + + + + Vitamin B-12 (04/18/2019 11:29 AM PST) + + + + + + | Component | Value | Ref Range | Performed | Pathologist | | | | | At | Signature | + + + + + + | VITAMIN | >[id number] (H)Comment: | 156 - 672 pg/mL | [...] | + + + + + | [facility] | [address] | [place], [place] | [phone] | | [facility] | | [address] | | | - LABORATORY | | [...] | | | | First dose on [facility] 10/15/17 at 1215 | | | [...]
--- OUTSIDE RECORDS SUMMARY | ~2020-01-25 | XMS | Encounter Summary ---
Demographics + + + | Address | [address] | | | [place] [address] | + + + | Home Phone [...] Providers + +------+ + | Care Marketing And Promotions Manager Name | Role | Phone | + +------+ + | Pedrito Gutierrez MD | PCP | | + +------+ + Encounter Details +--------+---------+ + + + | Date | Type | Department | Care Team | Description | +--------+---------+ + + + | 02/01/ | Office | [facility] | Chris Padgett, | Status Post | | 2006 | Visit | [place] [address] | [address] | Bariatric Surgery; | | | | Ave Mailcode: CH4S | [address] | Follow-Up | | | | [facility] | [place], [place] | Examination | | | | and Healing, | [address] | Following Surgery | | | | Building | [phone] | | | | | Floor [place], [place] | | | | | | [address] | | | | | | [phone] | | | +--------+---------+ + + + [...] history of intermittent abdominal pain comes to [facility] for 3 mo f/u evaluation with no [...]
--- OUTSIDE RECORDS SUMMARY | ~2020-01-25 | XMS | Encounter Summary ---
Demographics + + + | Address | [address] | | | [place] [address] | + + + | Home Phone [...] Team Providers + +------+ + | Care Cosmetic Chemist Name | Role | Phone | [...] | | | | behavior of | [facility] | Orthopaedics | | | | | bone and | & Fractur | [address] | | | | | articular | [address] | [address] | | | | | cartilage | [address] | Rd | | | | | Procedures | [place], | [place], [place] | | | | | REQUEST TO | [place] [address] | [address] | | | | | SURGERY | Phone: | | | | | | SOFTWARE TESTING SPECIALIST | [phone] | | | | | | DC BONE | Fax: | | | | | | BIOPSY,OPEN | [phone] | | | | | | DEEP DC | | | | | | | EXCIS/CURET | | | | | | | BENIGN TUMR | | | | | | | CLAV/SCAPULA | | | | | | | DC EXCIS | | | | | | | BENIGN TUMR | | | | | | | CLAV/SCAP,AU | | | | | | | TOGRFT DC | | | | | | | [...] | | | | | | | [facility] | Orthopaedics | | | | | | & Fractur | [address] | | | | | | [address] | [address] | | | | | | [address] | [place] | | | | | | [place], | [place], [place] | | | | | | [place] [address] | [address] | | | | | | Phone: | | | | | | | [phone] | | | | | | | Fax: | | | | | | | [phone] | | +--------+--------+ + + + + [...] | (Primary Dx) | | | | [place], [place] | | | | | | [address] | | | | | | [phone] | | | +--------+---------+ + + + [...] 08/2007 right knee Hx lumbar fusion 05/2008 L5-X8bposof with bone spur removals Hx appendectomy Hx cholecystectomy Hx section Hx hysterectomy Gastric bypass Mayra Padgett wt 278 01/18 Paniculectomy Allergies: Allergies Allergen Reactions Keflex (Cephalexin) Sulfa (Sulfonamides) Codeine Penicillins Clindamycin Cipro (Ciprofloxacin) Tramadol Morphine IM ( only in [facility]) made gut pain worse 08/27/06: Trial of oral MSIR caused leg swelling Clarithromycin Hives Mainly in the legs Dhilotv-pcyzozjrhb-ghl-caff Balance problems Amitriptyline Grand mal seizures Medications: [...] signs are noted as recorded by the Licensed Plumber. General: Alert, awake, and oriented x3. No [...] No: | | | | | | [id number] Name: | | | | | | BELINDA MEEHAN | | | | | | Birthday: 1960 | | | | | | Sex: F | | | | | | Alias:Patient Location: | | | | | | [id number]: Outpatient | | | | | | ActiveOrdering | | | | | | Physician: JOSÉ MIGUEL | | | | | | MARYSOL MORENO SCAPULA | | | | | | COMPLETE completed on | | | | | | 01/01/2009 11:55 | | | | | | AMAccession # | | | | | | [id number]:LEFT | | | | | | SCAPULA [...]
--- OUTSIDE RECORDS SUMMARY | ~2020-01-25 | XMS | Encounter Summary ---
Demographics + + + | Address | [address] | | | [place] [address] | + + + | Home Phone [...] as of this encounter Progress Notes Interface, General Freight Agent In - 08/19/2005 2:05 AM PST [id number] [facility] Date: 07/24/2005 Clinic: Hematology/Oncology [...] or malignancies. 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 She still smokes 1/2 [...] are appreciated. No petechiae. Laboratory: Labs from [place]: Homocysteine 8.5 and SANIA negative. CBC: White [...] laboratory studies that have been obtained from [place], it does not appear that she has [...] E supplementation. Karen Gramza, Joanna Sellers M.D. mine engineering supervisor / HS [id number] / [id number] / [id number] / [id number] cc: Pedrito Gutierrez M.D. [facility] [address] [place] [address] FAX: [phone] Electronically signed by Lukasz Sellers 08-18-2005 01:27:53 PM documented i n this encounter Plan of Treatment Not on filedocumented as of this encounter Visit Diagnoses Not on filedocumented in this encounter"
--- OUTSIDE RECORDS SUMMARY | ~2020-01-25 | XMS | Encounter Summary ---
Demographics + + + | Address | [address] | | | [place] [address] | + + + | Home Phone [...] Providers + +------+ + | Care Physician Office Assistant Name | Role | Phone | [...] | | | [facility] | [place], [place] | | | | | [address] | [address] | | | | | [address] | [phone] | | | | | [facility] | | | | | | Physician's | | | | | | [facility] [place], | | | | | | [place] [address] | | | | | | [phone] | | | +--------+ + + + [...]
--- OUTSIDE RECORDS SUMMARY | ~2020-01-25 | XMS | Encounter Summary ---
Demographics + + + | Address | [address] | | | [place] [address] | + + + | Home Phone [...] Providers + +------+ + | Care Medical Grade Shoemaker Name | Role | Phone | + [...] | | | | Mailcode: L223A | [place], [place] | | | | | [facility] | [address] | | | | | [address] [place], [place] | [phone] | | | | | [address] | | | | | | [phone] | | | +--------+ + + + [...]
--- OUTSIDE RECORDS SUMMARY | ~2020-01-25 | XMS | Encounter Summary ---
Demographics + + + | Address | [address] | | | [place] [address] | + + + | Home Phone [...] Team Providers + +------+ + | Care Admitting Office Escort Name | Role | Phone | + [...] | | | [facility] | [place], [place] | | | | | [address] | [address] | | | | | [address] | [phone] | | | | | [facility] | | | | | | Physician's | | | | | | Pavilion [place], | | | | | | [place] [address] | | | | | | [phone] | | | +--------+--------+ + + + [...]
--- OUTSIDE RECORDS SUMMARY | ~2020-01-25 | XMS | Encounter Summary ---
[...] [address] | | | | | | [place], [place] | | | | | | [address] | | | | | | [phone] | | | +--------+ + + + [...]
--- OUTSIDE RECORDS SUMMARY | ~2020-01-25 | XMS | Encounter Summary ---
Demographics + + + | Address | [address] | | | [place] [address] | + + + | Home Phone [...] Providers + +------+ + | Care Utility Assembler Name | Role | Phone | + +------+ + | Petrona Thapa | PCP | | | MD | | | + +------+ + Reason for Visit + +--------+ + | Reason | Onset | Comments | | | Date | | + +--------+ + | Chest Pain | 09/14/ | | | | 2019 | | + +--------+ + Encounter Details +--------+ + + + + | Date | Type | Department | Care Team | Description | +--------+ + + + + | 09/14/ | Telephone | [facility] | Alanis, | Chest Pain | | 2019 | | MEDICINE [address] | MD [place] | | | | | [address] [place], | [address] [facility] | | | | | [place] [address] | [place] [address] | | | | | [phone] | [phone] | | | | | | | [...] Miscellaneous Notes Telephone Encounter - Teresa Mitchell, Assistant Engineer - 09/15/2019 10:28 AM Emmie nt presented to the clinic for monthly B12 injections, Stated that in the last couple of we eks she has had to take a Nitro two days in a row. Had results from the first pill taken, so did not go to the ER for evaluation. Says that was a new bottle and the pills did not diss olve when she placed them under her tongue. She had to take some liquid before they dissolv ed. Has discussed this with the pharmacy and they advised that if she continues to have tro uble with the pills not dissolving she should bring them back and they will give her a new b ottle. She also was advised to get the shingrix vaccination. Advised that Medicare does not cover the vaccination in clinic, and should get it from the pharmacy. She stated that if it is n ot covered at the pharmacy she is not going to get the vaccination. Says that she has never had chicken pox, so is not sure if she really needs it. documented in this encounter Plan of Treatment +--------+---------+ + + + | Date | Type | Specialty | Care Team | Description | +--------+---------+ + + + | 02/15/ | Office | Internal Medicine | Alanis, | | | 2019 | Visit | | MD [place] | | | | | | [address] | | | | | | [place] [address] | | | | | | [phone] | | | | | | | | +--------+---------+ + + + documented as of this encounter Visit Diagnoses Not on filedocumented in this encounter"
--- OUTSIDE RECORDS SUMMARY | ~2020-01-25 | XMS | Encounter Summary ---
Demographics + + + | Address | [address] | | | [place] [address] | + + + | Home Phone [...] + +------+ + | Care Director Of Corporate Sales Name | Role | Phone | [...] of this encounter Progress Notes Interface, Director Of Guidance In Public Schools In - 03/29/2005 5:05 AM PDT [id number] [facility] Date: 03/20/2005 Clinic: Rheumatology Primary Care Physician: Dr. Pedrito Gutierrez. Subjective: Belinda Meeahn is a 45-year-old woman who I periodically [...] and sense of disability is 5/10. Her manager of case needs a note from me that she [...] for the diagnosis of fibromyalgia by the [employer]. She also has the [...] to treat restless legs. There is a utility driver in [place] who is using large doses to reduce [...] 4 months. Caitlin Rivera M.S., F.N.P. / [id number] / [id number] / [id number] / [id number] cc: Pedrito Gutierrez M.D. [address] [place] [address] Beilnda Meehan [address] [place] [address] Electronically signed by Caitlin Rivera 03-28-2005 01:43:14 PM documented i n this encounter Plan of Treatment Not on filedocumented as of this encounter Visit Diagnoses Not on filedocumented in this encounter"
--- OUTSIDE RECORDS SUMMARY | ~2020-01-25 | XMS | Encounter Summary ---
Demographics + + + | Address | [address] | | | [place] [address] | + + + | Home Phone [...] Providers + +------+ + | Care Rug Drying Machine Operator Name | Role | Phone [...] + + | 03/28/ | Documentati | [facility] | Rosi Antonio, | Erroneous Encounter | | 2012 | on | Pain Center at | ANP | - Disregard | | | | [facility] | | | | | | [address] | | | | | | [facility] | | | | | | and Healing, | | | | | | Building | | | | | | Floor [place], [place] | | | | | | [address] | | | | | | [phone] | | | +--------+ + + + [...]
--- OUTSIDE RECORDS SUMMARY | ~2020-01-25 | XMS | Encounter Summary ---
Demographics + + + | Address | [address] | | | [place] [address] | + + + | Home Phone [...] + +------+ + | Care Cryptologic Technician Name | Role | Phone | [...] | | 2006 | | [facility] at [facility] | [address] [place] | | | | | for Health and | [facility] [place] | | | | | Healing [address] | [address] | | | | | [facility] for | [phone] | | | | | Health and Healing, | | | | | | [facility] | | | | | | [place], [place] | | | | | | [address] | | | | | | [phone] | | | +--------+ + + + [...]
--- OUTSIDE RECORDS SUMMARY | ~2020-01-25 | XMS | Encounter Summary ---
Demographics + + + | Address | [address] | | | [place] [address] | + + + | Home Phone [...] Providers + +------+ + | Care Health Records Technology Teacher Name | Role | Phone | [...] as of this encounter Progress Notes Interface, Jewelry Casting Model Maker In - 09/13/2005 2:06 AM PST [id number] [facility] Date: 01/02/2005 Clinic: Endocrinology [...] months. Beto Meeks M.D. PD / HS [id number] / [id number] / [id number] / [id number] cc: Chris Padgett M.D. Electronically signed by Beto Meeks 09-12-2005 02:22:56 AM documented i n this encounter Plan of Treatment Not on filedocumented as of this encounter Visit Diagnoses Not on filedocumented in this encounter"
--- OUTSIDE RECORDS SUMMARY | ~2020-01-25 | XMS | Encounter Summary ---
Demographics + + + | Address | [address] | | | [place] [address] | + + + | Home Phone [...] Providers + +------+ + | Care Risk Management Director Name | Role | Phone [...] | | 2006 | | [facility] at [place] | MD Darrion,PhD [address] | | | | | for Health and | [address] | | | | | Healing [address] | [place], [place] | | | | | e [place] for | [address] | | | | | Health and Healing, | [phone] | | | | | Building | | | | | | Floor [place], [place] | | | | | | [address] | | | | | | [phone] | | | +--------+ + + + [...]
--- OUTSIDE RECORDS SUMMARY | ~2020-01-25 | XMS | Encounter Summary ---
Demographics + + + | Address | [address] | | | [place] [address] | + + + | Home Phone [...] Team Providers + +------+ + | Care Juvenile Counselor Name | Role | Phone | [...] | | | | | | [address] [place], [place] | | | | | | [address] | | | | | | [phone] | | | +--------+ + + + [...]
--- OUTSIDE RECORDS SUMMARY | ~2020-01-25 | XMS | Encounter Summary ---
Demographics + + + | Address | [address] | | | [place] [address] | + + + | Home Phone [...] Providers + +------+ + | Care Aluminum Boat Inspector Name | Role | Phone | [...] as of this encounter Progress Notes Interface, Dentures Lab Technician In - 01/12/2005 10:09 AM PDT [id number] [facility] Date: 12/25/2004 Clinic: GENERAL [...] will send an emergency supply fax to [facility] at fax #[phone], first 30 pills, oxycodone 5 mg to [...] the current plan. Melisa Thorne / SHARIF [id number] / [id number] / [id number] / [id number] Electronically signed by Kenisha Melton 01-01-2005 04:41:20 PM documented i n this encounter Plan of Treatment Not on filedocumented as of this encounter Visit Diagnoses Not on filedocumented in this encounter"
--- OUTSIDE RECORDS SUMMARY | ~2020-01-25 | XMS | Encounter Summary ---
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 2. May continue with Bridgeton NTE 4 per day as prescribed 3. Continue with PT and PSychology as scheduled 4. Follow up to review medications on 09/09/06 and call with any concerns or questions. 5. Continue with Trileptal 150mg 1 1/2 tablet twice a day documented in this encounter Progress Notes Delfina Molina - 08/26/2006 9:44 AM PDTFormatting of this note might be different from lseli gomez. 08/26/2006 Belinda Meehan is a 46 [...] seen Dr. Morales in orth opedics at [facility], she reports that surgery is not [...] swelling has resolved. Belinda has been using Bridgeton 10/325 an average of 5 tablets per day. 1 tablet has an effecti ve duration of 5 hours "pain breaks through at about 4 hours", she reports taking a Bridgeton ev eduardo 5 hours. She denies any [...] Collection Time Resulting Agency 07/30/2006 4:00 PM [facility] DEPARTMENT OF PATHOLOGY Component Results [...] previous 6 days. 2. May continue with Bridgeton NTE 4 per day as prescribed 3. Continue with PT and Psychology as scheduled. 4. Continue with Trileptal 150mg 1 1/2 tablet twice a day 5. Follow up to review medications on 09/09/06 and call with any concerns or questions. DELFINA MOLINA [facility] Comprehensive Pain Center Mail code CH 4P [facility] and [address] [address] Ailyn Foster - 08/27/19 9:09 [...] medication refills today? yes [facility] Plan of Treatment Not on filedocumented [...]
--- OUTSIDE RECORDS SUMMARY | ~2020-01-25 | XMS | Encounter Summary ---
Demographics + + + | Address | [address] | | | [place] [address] | + + + | Home Phone [...] Providers + +------+ + | Care Employment Trainer Name | Role | Phone | [...]
--- OUTSIDE RECORDS SUMMARY | ~2020-01-25 | XMS | Encounter Summary ---
Demographics + + + | Address | [address] | | | [place] [address] | + + + | Home Phone [...] Providers + +------+ + | Care Hair Baler Name | Role | Phone | + [...] | | | Mailcode: PV240 | [place] [address] | | | | | [facility] | [phone] | | | | | [place], [place] | | | | | | [address] | | | | | | [phone] | | | +--------+ + + + [...]
--- OUTSIDE RECORDS SUMMARY | ~2020-01-25 | XMS | Encounter Summary ---
Demographics + + + | Address | [address] | | | [place] [address] | + + + | Home Phone [...] Providers + +------+ + | Care Log Getter Name | Role | Phone | + +------+ + | Petrona Thapa | PCP | | | MD | | | + +------+ + Reason for Visit + +--------+ + | Reason | Onset | Comments | | | Date | | + +--------+ + | Appointment | 09/13/ | | | | 2018 | | + +--------+ + Encounter Details +--------+ + + + + | Date | Type | Department | Care Team | Description | +--------+ + + + + | 09/13/ | Telephone | [facility] | Alanis, | Appointment | | 2018 | | MEDICINE [address] | MD Petrona | | | | | [place], | [address] [facility] | | | | | [place] [address] | [place] [address] | | | | | [phone] | [phone] | | | | | | | [...] Telephone Encounter - Maggie Montoya LPN - 09/13/2018 5:09 PM PDTPatient notified will javon colin to discuss possible order for infusion at her appt on 09/15/18. elephone Encounter - Juliane Elena - 09/13/2018 4 :36 PM PDTPatient called asking to speak to the nurse regarding her appointment on 09/15/18, w ould like to know if she will received her osteoporosis medication through IV? should patie nt be expecting to go to the hospital for it? Patient would like to know for her caregiver tomi miller has curtain amount of time please advise.Electronically signed by Juliane Elena at 09/13 4:44 PM PDTdocumented in this encounter Plan of [...] | | | | | [place] [address] | | | | | | [phone] | | | | | | | | +--------+---------+ + + + documented as of this encounter Visit Diagnoses Not on filedocumented in this encounter"
--- OUTSIDE RECORDS SUMMARY | ~2020-01-25 | XMS | Encounter Summary ---
Demographics + + + | Address | [address] | | | [place] [address] | + + + | Home Phone [...] Providers + +------+ + | Care Customer Support Agent Name | Role | Phone | [...] Pavilion | | | | | | [place], [place] | | | | | | [address] | | | | | | [phone] | | | +--------+ + + + [...]
--- OUTSIDE RECORDS SUMMARY | ~2020-01-25 | XMS | Encounter Summary ---
Demographics + + + | Address | [address] | | | [place] [address] | + + + | Home Phone [...] +------+ + | Care Printed Circuit Boards Solder Leveler Name | Role | Phone | [...] + + | 11/12/ | Telephone | [facility] | Alanis, | Leg Swelling | | 2017 | | MEDICINE [address] | MD Petrona | | | | | [place], | [address] [facility] | | | | | [place] [address] | [place] [address] | | | | | [phone] | [phone] | | | | | | | [...] | | | | | [place] [address] | | | | | | [phone] | | | | | | | | +--------+---------+ + + + documented as of this encounter Visit Diagnoses Not on filedocumented in this encounter"
--- OUTSIDE RECORDS SUMMARY | ~2020-01-25 | XMS | Encounter Summary ---
Demographics + + + | Address | [address] | | | [place] [address] | + + + | Home Phone [...] Providers + +------+ + | Care Director Pediatric Name | Role | Phone | + [...] | | MD [address] | [place] [address] | | | | | | [address] | Phone: | | | | | | [place], | [phone] | | | | | | [place] | Fax: | | | | | | [address] | [phone] | | | | | | Phone: | | | | | | | [phone] | | | | | | | Fax: | | | | | | | [phone] | | +--------+ + + + + [...] + + | 08/13/ | Telephone | [facility] | Alanis, | Medication Question | | 2018 | | MEDICINE [address] [place] [address] | MD Petrona | | | | | [place], | [address] [facility] [place] | | | | | [place] [address] | [place] [address] | | | | | [phone] | [phone] | | | | | | | [...] Thapa MD - 08/17/2018 3:25 PM PSTReferral hernesto t. elephon e Encounter - Maggie Montoya LPN - 08/17/2018 2:19 PM PSTPatient notified of comments/re commendations. Please refer to Dr. Brito in GI elephone Encounter - Bob Melgar - 08/17/2018 12:55 PM PS TPatient returned phone call please call [phone]. elephone Encounter - Maggie Montoya LPN - [...] 08/13/2018 1:33 PM PSTCall to [facility] in [place] spoke with pharmacist Alek, states p atient picked up #270 tabs of Ondansetron on [...] accepts. Please adviseElectronic ally signed by Maggie oMntoya LPN at 08/13/2018 1:40 PM PSTTelephone Encounter - Bob Murphy - 08/13/2018 12:12 PM PSTPatient called states she messed up on medication Zofra n 4 mg. She's taking 2 a day instead of one? patient is requesting a return phone call. Katelynn leon call [phone]. P STdocumented in this encounter Plan of [...] | | | | | [place] [address] | | | | | | [phone] | | | | | | | | +--------+---------+ + + + + + +--------+ + + | Name | Type | Priori | Associated Diagnoses | Order Schedule | | | | ty | | | + + +--------+ + + | * [facility] | Outpatient | Routin | Nausea | [...]
--- OUTSIDE RECORDS SUMMARY | ~2020-01-25 | XMS | Encounter Summary ---
Demographics + + + | Address | [address] | | | [place] [address] | + + + | Home Phone [...] Team Providers + +------+ + | Care Foundry Metallurgist Name | Role | Phone | + [...] + + | 09/14/ | Clinical | [facility] | Alanis, | B12 deficiency | | 2019 | Support | MEDICINE [address] [place] [place] [address] | MD Petrona | | | | | [place], | [address] [place] [address] | | | | | [place] [address] | [place] [address] | | | | | [phone] | [phone] | | | | | | | [...] as of this encounter Progress Teresa Tolbert, Label Drier - 09/15/2019 10:15 AM PDTFormatting of this note calderon ht be different from the original. Administrations This Visit cyanocobalamin (VITAMIN B-12) injection 1,000 mcg Admin Date 09/15/2019 Action Given Dose 1000 mcg Route Intramuscular Administered By Destiney Rapp do cumented in this encounter Plan of [...] | | | | | [place] [address] | | | | | | [phone] | | | | | | | [...] | | | | First dose on [facility] 10/15/17 at 1215 | | | [...]
--- OUTSIDE RECORDS SUMMARY | ~2020-01-25 | XMS | Encounter Summary ---
Demographics + + + | Address | [address] | | | [place] [address] | + + + | Home Phone [...] Pavilion | | | | | | [place], [place] | | | | | | [address] | | | | | | [phone] | | | +--------+ + + + [...]
--- OUTSIDE RECORDS SUMMARY | ~2020-01-25 | XMS | Encounter Summary ---
Demographics + + + | Address | [address] | | | [place] [address] | + + + | Home Phone [...] Team Providers + +------+ + | Care Short Order Fry Cook Name | Role | Phone | [...] + + | 04/04/ | Telephone | [facility] | Alanis, | Toe Fracture | | 2019 | | MEDICINE [address] | MD Petrona | | | | | [place], | [address] [facility] | | | | | [place] [address] | [place] [address] | | | | | [phone] | [phone] | | | | | | | [...] MD - 04/05/2019 11:04 AM PDTIf her rough rice tender does not see the necessity of getting an x-ray, I do not think it would be very helpful to get one.Electr onically signed by Petrona Thapa MD at 04/05/2019 11:06 AM PDTTelephone Susanna Sibley - 04/04/2019 3:08 PM PDTPatient called regarding her big toe, states she thinks its still broken and she can't seem to get an x-ray from the rough rice tender. Please a dvise. documented in this e [...] | | | | | [place] [address] | | | | | | [phone] | | | | | | | | +--------+---------+ + + + documented as of this encounter Visit Diagnoses Not on filedocumented in this encounter"
--- OUTSIDE RECORDS SUMMARY | ~2020-01-25 | XMS | Encounter Summary ---
Demographics + + + | Address | [address] | | | [place] [address] | + + + | Home Phone [...] Providers + +------+ + | Care Supervisor Powdered Sugar Name | Role | Phone | + +------+ + | Petrona Thapa | PCP | | | MD | | | + +------+ + Reason for Visit + + + | Reason | Comments | + + + | Pain Management | Sees pain clinic in [facility], Was [place] [facility] | | | Transbuccal every 12 hrs [...] [place] | Acquired | | | | [place] [address] | [place] [address] | hypothyroidism; | | | | [phone] | [phone] | Chronic bilateral | | | | [...] with Pain Management Sees pain clinic in [facility], Was switched to Belbuca 150mc Transbuccal every 12 hrs Results, Imaging HPI Belinda Meehan is a 57 y.o. y/o female who presents today for f/u for several issues: Has had a visit w/ the pain in the [place], [place], and they gave her a trial [...] has been on monthly B12 in [facility] for the last several months. REVIEW [...] [facility]) Depression Diarrhea Dumping syndrome Fatigue fracture of vertebra Fibromyalgia Glaucoma Hyperparathyroidism ([facility]) Hypothyroidism IBS (irritable bowel syndrome) Idiopathic scoliosis Leg edema Lumbar postlaminectomy syndrome Lumbar radiculopathy primarily right 01/04/2015 Meniere syndrome Migraines Muscle cramping Muscle spasm Myalgia Nonalcoholic hepatosteatosis Obesity Opiate dependence ([facility]) Orthostatic hypotension OLIVER (obstructive sleep apnea) Osteoarthritis, generalized Osteopenia Osteoporosis Peripheral neuropathy ([facility]) Rheumatoid arthritis ([facility]) [...] (See Comments) Confused and questionable for seizures Vmbmdyiekv-Nhyw-Fnqkfrte Cephalexin Hives Ketorolac Hives Morphine Swelling Tramadol Hcl Nausea Only Mphnpalkyn-Fwyw-Iygsptwu Hives and Rash Ciprofloxacin Hives and Rash [...] Note: Parts of this documentwere created using Feniks speech recognition software. As a r esult, [...] | | | | | [place] [address] | | | | | | [phone] | | | | | | | [...]
--- OUTSIDE RECORDS SUMMARY | ~2020-01-25 | XMS | Encounter Summary ---
Demographics + + + | Address | [address] | | | [place] [address] | + + + | Home Phone [...] Providers + +------+ + | Care Lead Nurse Name | Role | Phone | [...] + | 08/14/ | Refill | [facility] | Alanis, | Medication Refill | | 2018 | | MEDICINE [address] | MD Petrona | | | | | [place], | [address] [facility] | | | | | [place] [address] | [place] [address] | | | | | [phone] | [phone] | | | | | | | [...] | | | | | [place] [address] | | | | | | [phone] | | | | | | | | +--------+---------+ + + + documented as of this encounter Visit Diagnoses Not on filedocumented in this encounter"
--- OUTSIDE RECORDS SUMMARY | ~2020-01-25 | XMS | Encounter Summary ---
Demographics + + + | Address | [address] | | | [place] [address] | + + + | Home Phone [...] Team Providers + +------+ + | Care Market Research Intern Name | Role | Phone | + +------+ + | Pedrito Gutierrez MD | PCP | | + +------+ + Encounter Details +--------+---------+ + + + | Date | Type | Department | Care Team | Description | +--------+---------+ + + + | 08/05/ | Office | Comprehensive Pain | Nathalia Arora | Cervical Spondylosis | | 2006 | Visit | [facility] | [address] | without Myelopathy | | | | [place] [address] | [address] [place], | (Primary Dx); | | | | [facility] | [place] [address] | Spondylosis with | | | | [facility], | | Myelopathy, Lumbar | | | | | | Region; Herniated | | | | Floor [place], [place] | | Lumbar | | | | [address] | | Intervertebral Disc; | | | | [phone] | | Unspecified Myalgia | | | [...] Medicare Progress Note Date: 08/05/2006 Belinda Meehan [id number]. [id number] Start of Care: 06/23/2006 Referring Provider: [...] keep hydrated, went to the ED in [place] and was sent home by the M.[facility] There without a ny treatment and advised by him to contact the pain clinic. Patient did not some relief with her last treatment, and continues her exercises consistent ly. She is walking daily at [facility] for 15-20 minutes, sitting X 60 [...] habits contribute to patient's symptoms. Functionally, slick jacobsen has a reduced incidence of falls secondary [...] + + +--------+ + + | [facility] MANUAL THER | Procedures | Routin | [...] + + +--------+ + + | [facility] THERAPEUTIC | Procedures | Routin | Cervical [...] + + +--------+ + + | [facility] THERAPEUTIC | Procedures | Routin | Cervical [...]
--- OUTSIDE RECORDS SUMMARY | ~2020-01-25 | XMS | Encounter Summary ---
Demographics + + + | Address | [address] | | | [place] [address] | + + + | Home Phone [...] Providers + +------+ + | Care Retail Sales Professional Name | Role | Phone | [...] | | | | Clinical Nutrition | [place], [place] | | | | | [address] | [address] | | | | | Loop Mailcode: [id number] | [phone] | | | | | Outpatient Clinic | | | | | | [facility] | | | | | | [place] [address] | | | | | | [phone] | | | +--------+ + + + [...] + + + + | [facility] | [address] | [place] [address] | | | LABORATORY | | | [...] + + + | [facility] | [address] | [place] [address] | | | LABORATORY | | | [...] + + + + | [facility] | [address] | [place] [address] | | | LABORATORY | | | | + + + + + documented in this encounter Visit Diagnoses Not on filedocumented in this encounter"
--- OUTSIDE RECORDS SUMMARY | ~2020-01-25 | XMS | Encounter Summary ---
Demographics + + + | Address | [address] | | | [place] [address] | + + + | Home Phone [...] Providers + +------+ + | Care Flight Service Agent Name | Role | Phone | [...] + + | 03/05/ | Telephone | [facility] | Alanis, | Other | | 2017 | | MEDICINE [address] | MD Petrona | | | | | [place], | [address] [facility] | | | | | [place] [address] | [place] [address] | | | | | [phone] | | | | | | | [...] - 03/05/2018 9:19 AM PDTShalonda nurse from [facility] nurse about patient, Shalonda can be reached at [phone] prieto signed by Sia Bai at 03/05/2018 9:20 AM PDTdocumented in this encounter Plan of Treatment +--------+---------+ + + + | Date | Type | Specialty | Care Team | Description | +--------+---------+ + + + | 02/15/ | Office | Internal Medicine | Alanis, | | | 2019 | Visit | | MD Petrona | | | | | | [address] [facility] | | | | | | [place] [address] | | | | | | [phone] | | | | | | | | +--------+---------+ + + + documented as of this encounter Visit Diagnoses + + | Diagnosis | + + | Non-intractable vomiting with nausea, unspecified vomiting type - Primary | + + documented in this encounter"
--- OUTSIDE RECORDS SUMMARY | ~2020-01-25 | XMS | Encounter Summary ---
Demographics + + + | Address | [address] | | | [place] [address] | + + + | Home Phone [...] Team Providers + +------+ + | Care Diving Coach Name | Role | Phone | + +------+ + | Petrona Thapa | PCP | | | MD | | | + +------+ + Reason for Visit + +--------+ + | Reason | Onset | Comments | | | Date | | + +--------+ + | Medication Refill | 02/10/ | | | | 2018 | | + +--------+ + Encounter Details +--------+--------+ + + + | Date | Type | Department | Care Team | Description | +--------+--------+ + + + | 02/10/ | Refill | [facility] | Alanis, | Medication Refill | | 2018 | | MEDICINE [address] | MD Petrona | | | | | [place], | [address] [place] | | | | | [place] [address] | [place] [address] | | | | | [phone] | [phone] | | | | | | | [...] Telephone Encounter - Gina Moreira RN - 02/10/2019 11:49 AM PDTReceived fax from Tayo morelos in [place] for a refill of her ondansetron 4 mg tablet. Pended for your review. Last visit 01/17/19 Next visit 02/15/19 documented in this en counter Plan of [...] | | | | | [place] [address] | | | | | | [phone] | | | | | | | | +--------+---------+ + + + documented as of this encounter Visit Diagnoses + + | Diagnosis | + + | Nausea Nausea alone | + + documented in this encounter"
--- OUTSIDE RECORDS SUMMARY | ~2020-01-25 | XMS | Encounter Summary ---
Demographics + + + | Address | [address] | | | [place] [address] | + + + | Home Phone [...] Team Providers + +------+ + | Care Telephone Worker Name | Role | Phone | [...]
--- OUTSIDE RECORDS SUMMARY | ~2020-01-25 | XMS | Encounter Summary ---
Demographics + + + | Address | [address] | | | [place] [address] | + + + | Home Phone [...] Team Providers + +------+ + | Care Oyster Shucker Name | Role | Phone | + [...] | | | | CONSULT TO | [place], [place] | Health and | | | | | NEUROLOGY | [address] | Healing, | | | | | | | Building [address], | | | | | | | 8th Floor | | | | | | | [place], [place] | | | | | | | [address] | | | | | | | Phone: | | | | | | | [phone] | | | | | | | Fax: | | | | | | | [phone] | +--------+--------+ + + + + Reason for Visit +--------+ + | Reason | Comments | +--------+ + | Pain | back, legs, headache | +--------+ + Encounter Details +--------+---------+ + + + | Date | Type | Department | Care Team | Description | +--------+---------+ + + + | 08/12/ | Office | [facility] Comprehensive | Delfina Molina, | Migraine Headache | | 2006 | Visit | Pain Center at | ANP | (Primary Dx); | | | | [facility] | | Spondylosis with | | | | [address] | | Myelopathy, Lumbar | | | | [place] [facility] | | Region; Neck Pain; | | | | and Healing, | | Right shoulder | | | | Building | | rotator cuff strain; | | | | Floor [place], [place] | | Fibromyalgia | | | | [address] | | syndrome 729.1; | | | | [phone] | | Depression | +--------+---------+ + + [...] Belindavera Meehan is a 46 y.o. female [facility] Comprehensive Pain Center Return Visit [...] in two weeks or PRN DELFINA MOLINA [facility] Mail code CH [facility] [address] [facility] [address] Alisha Marquez - 7 8:25 AM [...]
--- OUTSIDE RECORDS SUMMARY | ~2020-01-25 | XMS | Encounter Summary ---
Demographics + + + | Address | [address] | | | [place] [address] | + + + | Home Phone [...] Providers + +------+ + | Care Hand Candle Molder Name | Role | Phone | [...] 10/28/ | Office | Pain Center at [facility] | Lukasz Charles, | Major Depressive | | 2006 | Visit | [address] | PhD [address] | Disorder, Recurrent | | | | Center for Health | [facility] [place] | Episode, Moderate | | | | and Healing, | [address] | ([facility]); Neck Pain; | | | | Building | [phone] | Herniated Lumbar | | | | Floor [place], [place] | | Intervertebral Disc | | | | [address] | | L4-5; Spondylosis | | | | [phone] | | with Myelopathy, | | | [...] has been making a friend at the [employer] . She has been doing cross stitch [...] She has using good self-care skills. Diagnosis: Chaska I: 1. (296.32) Major depressive disorder, recurrent, moderate. 2. (309.24) Adjustment disorder with anxiety. 3. (307.89) Chronic pain disorder associated with both psychological factors and a gene ral medical condition. Chaska II: Deferred Chaska III: abdominal pain, migraine headache, low back pain. Chaska IV: low finances Chaska V: GAF 50 Plan: Return in 2 weeks. Check preparation for move and for niece's visit, results of orthopedic visit. Check pacing, relaxation, activity, distraction. Continue cognitive/behavioral the rapy. Total time spent with patient was approximately 45 minutes. LUKASZ CHARLES PHD [facility] [address] [facility], 4th [place] [address] documented in this encount er Plan of [...]
--- OUTSIDE RECORDS SUMMARY | ~2020-01-25 | XMS | Encounter Summary ---
Demographics + + + | Address | [address] | | | [place] [address] | + + + | Home Phone [...] + + | 11/14/ | Office | [facility] | Alanis, | Situational | | 2019 | Visit | MEDICINE [address] | MD Petrona | depression (Primary | | | | [address] [place], | [address] [facility] | Dx); B12 deficiency; | | | | [place] [address] | [place] [address] | Chronic diarrhea; | | | | [phone] | [phone] | History of Zoe-en-Y | | | [...] Procedure: COLONOSCOPY; Surgeon: Luther Brito MD; Location: [facility] DILATION AND CURETTAGE OF UTERUS ELBOW SURGERY FINGER TRIGGER RELEASE 2002 FINGER TRIGGER RELEASE 2010 GASTRIC BYPASS SURGERY 2004 HYSTERECTOMY 05/14/1980 JOINT REPLACEMENT Bilateral 2007 2008 KNEE ARTHROSCOPY 2005 LAPAROSCOPY 01/27/2015 LAPAROTOMY 2008 ROTATOR CUFF REPAIR 2005 SPINE SURGERY TONSILLECTOMY 1964 UPPER GASTROINTESTINAL ENDOSCOPY N/A 12/18/2017 Procedure: EGD; Surgeon: Luther Brito MD; Location: [facility] CURRENT MEDICATIONS Current Outpatient [...] Allergen Reactions Ensure Diarrhea Food Diarrhea Lactose Korayhrvad-Hvz-Ugxn-Codeine Other (See Comments) Balance problems Codeine Sulfate Nausea Only Food Allergy Formula Diarrhea Ensure Levofloxacin Hives, Itching and Rash Butalbital Ropinirole Amitriptyline Hcl Other (See Comments) Confused and questionable for seizures Cgnfnyuikf-Dign-Isbhufyt Rash duplicate Vfvthamqyv-Ddti-Gbimbtvb Hives and Rash Cephalexin Hives Ciprofloxacin Hives [...] 1. Parts of this documentwere created using ticckle speech recognition software. As a resu lt, there may be unintended word spelling errors. Every attempt was made to correct the di ctation. Teresa Adame, Engine Turner - 11/15/2019 9:30 AM PDTFormatting of this note might be diff erent from the original. Administrations This Visit cyanocobalamin (VITAMIN B-12) injection 1,000 mcg Admin Date 11/15/2019 Action Given Dose 1000 mcg Route Intramuscular Administered By Teresa Mitchell, Engine Turner INdo cumented in this encounter Plan of [...] | | | | | [place] [address] | | | | | | [phone] | | | | | | | | +--------+---------+ + + + documented as of this encounter Results JEREMÍAS Sotelo Left 2 + Vw (11/15/2019 10:42 AM [...]
--- OUTSIDE RECORDS SUMMARY | ~2020-01-25 | XMS | Encounter Summary ---
Demographics + + + | Address | [address] | | | [place] [address] | + + + | Home Phone [...] Providers + +------+ + | Care Assistant Sales Center Manager Name | Role | Phone [...] as of this encounter Progress Notes Interface, Strategic Account Director In - 01/11/2005 11:07 PM PDT Referred [...] is being seen by an orthopedist in [place]. She brings her brace today which she states is going well. The patient, however, yesterday awoke with neck stiffness and pain with spasming type pains in the area of her neck. She was seen in the emergency room last night in [place] for injection after a migraine. She states [...] the above plans. Aissatou De Jesus M.D. Dmoingo Lozoya M.D. Gokul P [phone] cc: Pedrito Gutierrez MD [address] [place], [place] [email or web address] signed by Interface, Strategic Account Director In at 5 11:07 PM PDTdocumented in this encounter Plan of Treatment Not on filedocumented as of this encounter Visit Diagnoses Not on filedocumented in this encounter"
--- OUTSIDE RECORDS SUMMARY | ~2020-01-25 | XMS | Encounter Summary ---
Demographics + + + | Address | [address] | | | [place] [address] | + + + | Home Phone [...] Team Providers + +------+ + | Care Gaming Cage Worker Name | Role | Phone | + +------+ + | Pedrito Gutierrez MD | PCP | | + +------+ + Encounter Details +--------+ + + + + | Date | Type | Department | Care Team | Description | +--------+ + + + + | 11/24/ | Respiratory | | Other, Faculty | | | 2003 | | | [phone] | | | | [facility] | | [...]
--- OUTSIDE RECORDS SUMMARY | ~2020-01-25 | XMS | Encounter Summary ---
Demographics + + + | Address | [address] | | | [place] [address] | + + + | Home Phone [...] | | | | Clinical Nutrition | [place], [place] | | | | | [address] | [address] | | | | | Loop Mailcode: OPC5 | [phone] | | | | | Outpatient Clinic | | | | | | [facility] | | | | | | [place] [address] | | | | | | [phone] | | | +--------+ + + + [...] + + + | [facility] | [address] | [place] [address] | | | LABORATORY | | | [...] | uIU/ml | | | | | [facility] | | | | | | Laboratories. | | | | + + + + + + + + | Specimen | + + | | + + + + + + + | Performing | Address | City/State/Zipcode | Phone Number | | Organization | | | | + + + + + | [facility] | [address] | [place] [address] | | | LABORATORY | | | [...] DEPARTMENT OF | [address] | [place] [address] | | | PATHOLOGY | [address] | | | + + + + + | [place] DEPARTMENT OF | [address] | [place] [address] | | | PATHOLOGY | [address] | | | + + + + + documented in this encounter Visit Diagnoses Not on filedocumented in this encounter"
--- OUTSIDE RECORDS SUMMARY | ~2020-01-25 | XMS | Encounter Summary ---
Demographics + + + | Address | [address] | | | [place] [address] | + + + | Home Phone [...] Team Providers + +------+ + | Care Secret Service Agent Name | Role | Phone [...] [address] | | | | | [place], [place] | [place], [place] | | | | | [address] | [address] | | | | | [phone] | [phone] | | | | | | | [...] | | | | | pattern is normal. | | | | | | Cholecystectomy clips | | | | | | are present inthe right | | | | | | upper quadrant. | | | | | | Surgical staple lines | | | | | | are noted in | | | | | | theepigastrium and left | | | | | | midabdomen, in keeping | | | | | | with probable | | | | | [...]
--- OUTSIDE RECORDS SUMMARY | ~2020-01-25 | XMS | Encounter Summary ---
Demographics + + + | Address | [address] | | | [place] [address] | + + + | Home Phone [...] Team Providers + +------+ + | Care Equal Opportunity Specialist Name | Role | Phone | [...] + | 06/17/ | Telephone | [facility] | Alanis, | Referral | | 2018 | | MEDICINE [address] | MD Petrona | | | | | [place], | [address] [facility] | | | | | [place] [address] | [place] [address] | | | | | [phone] | [phone] | | | | | | | [...] it is Dr. Nikita Vallejo at the [facility] elephone Encounter - Maggie Montoya LPN [...] see about getting a referral to an environmental department manager as she has multiple intolerances to foods [...] Petrona | | | | | | [facility] [address] | | | | | | [place] [address] | | | | | | [phone] | | | | | | | | +--------+---------+ + + + documented as of this encounter Visit Diagnoses Not on filedocumented in this encounter"
--- OUTSIDE RECORDS SUMMARY | ~2020-01-25 | XMS | Encounter Summary ---
Demographics + + + | Address | [address] | | | [place] [address] | + + + | Home Phone [...] Providers + +------+ + | Care Mechanical Striper Name | Role | Phone | + [...] + | 02/24/ | Refill | [facility] | Alanis, | Medication Refill | | 2017 | | MEDICINE [address] | MD Petrona | | | | | [place], | [address] | | | | | [place] [address] | [place] [address] | | | | | [phone] | [phone] | | | | | | | [...] | | | | | [place] [address] | | | | | | [phone] | | | | | | | | +--------+---------+ + + + documented as of this encounter Visit Diagnoses Not on filedocumented in this encounter"
--- OUTSIDE RECORDS SUMMARY | ~2020-01-25 | XMS | Encounter Summary ---
Demographics + + + | Address | [address] | | | [place] [address] | + + + | Home Phone [...] Providers + +------+ + | Care Solar Photovoltaic Installer Name | Role | Phone | [...] | | | | | laterality | [address] | [address] | | | | | Dysfunction | Phone: | Phone: | | | | | of left | [phone] | [phone] | | | | | eustachian | Fax: | Fax: | | | | | tube | [phone] | [phone] | +--------+ + + + + + [...] [place] | unspecified | | | | [place], [place] | [place] [address] | laterality (Primary | | | | [address] | [phone] | Dx); Dysfunction of | | | | [phone] | | left eustachian tube | +--------+ [...] | | | | | [address] [facility] | | | | | | [place] [address] | | | | | | [phone] | | | | | | | [...]
--- OUTSIDE RECORDS SUMMARY | ~2020-01-25 | XMS | Encounter Summary ---
Demographics + + + | Address | [address] | | | [place] [address] | + + + | Home Phone [...] Team Providers + +------+ + | Care Respite Provider Name | Role | Phone | [...] [place] | | | | | [address] [place], [place] | [place] [address] | | | | | [address] | [phone] | | | | | [phone] | | | +--------+ + + + [...] Petrona | | | | | | [address] [place] [address] [place] | | | | | | [place] [address] | | | | | | [phone] | | | | | | | | +--------+---------+ + + + documented as of this encounter Visit Diagnoses Not on filedocumented in this encounter"
--- OUTSIDE RECORDS SUMMARY | ~2020-01-25 | XMS | Encounter Summary ---
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 She deneis sweating however has [facility] aqua pool program referral of her orthopedist physician. She reports going to [facility] three times a week for the past [...] the past week of Fentanyl patch and [place]. Trileptal he lps with right leg pain and sleep. "been sleeping great". Expectations for this visit include : discussing the sticking problems with the fentanyl pa tc and her insurance not being willing prescribe [place]. There have been no other change in [...] spine 2004 Optic Nerve Hemorrhage left eye Past Surgical History Procedure Date Gastric bypass C. Lorin wt 278 01/18 Paniculectomy Hx cholecystectomy Hx [...] an d her insurance stopped coverage of [place]. I believe doing pool therapy three times [...] might be d iverting or using her [place]? Until I know more I will not be prescribing a breakthrough sina n medication but am willing to prescribe early for her fentanyl. I have asked Belinda to sweet pickled fruit maker and be responsible for her own medication sweet pickled fruit maker. I discussed with Tasha Nolasco CMA the issue of Insurance PA for [place] this was in progress as of the time the patient was here. At the time I completed this note we had word that Ins urance would not approve coverage. I will discuss this with Belinda once I know her story o n where the dispensed #70 [place] is. [ Tasha reported calling [employer] who reported: Belinda's s on picking up [...] with each exchange. 3. Patient instructed to sweet pickled fruit maker and be responsible for her own medications. 4. Follow up in two weeks to review pain management. Once she is again stable on the fen tanyl patch I will transfer her prescribing to Dr. Gutierrez. She has completed the Multidisci plinary patient Care program here at the [facility]. DELFINA MOLINA [facility] Mail code CH 4P [facility] and [address] [address] asha Nolasco - 12/04/2006 7:43 AM PDTCMA History: PMH/PSH/SH/FH [...] + | Opioid dependence, continuous ([facility]) Opioid type dependence, continuous | + + | Major depressive disorder, recurrent episode, moderate ([facility]) Major depressive | | disorder, recurrent episode, [...]
--- OUTSIDE RECORDS SUMMARY | ~2020-01-25 | XMS | Encounter Summary ---
Demographics + + + | Address | [address] | | | [place] [address] | + + + | Home Phone [...] Refill Request | | 2007 | | [place] [address] | [address] [facility] | | | | | Bethanie Mailcode: CH4S | [facility] | | | | | [facility] | [place], [place] | | | | | and [place], | [address] | | | | | [facility] | [phone] | | | | | Floor [place], [place] | | | | | | [address] | | | | | | [phone] | | | +--------+--------+ + + + [...]
--- OUTSIDE RECORDS SUMMARY | ~2020-01-25 | XMS | Encounter Summary ---
Demographics + + + | Address | [address] | | | [place] [address] | + + + | Home Phone [...] Providers + +------+ + | Care Process Control Board Operator Name | Role | Phone | [...] | phalanx of | [address] | [address] | | | | | left great | [place], | Phone: | | | | | toe, initial | [place] | [phone] | | | | | encounter | [address] | Fax: | | | | | | Phone: | [phone] | | | | | | [phone] | | | | | | | Fax: | | | | | | | [phone] | | +--------+ + + + + + Encounter Details +--------+ + + + + | Date | Type | Department | Care Team | Description | +--------+ + + + + | 08/26/ | Orders Only | [facility] [place] [facility] | Alanis, | Closed nondisplaced | | 2018 | | MEDICINE [address] | MD Petrona | fracture of proximal | | | | [address] [place], | [address] [place] | phalanx of left | | | | [place] [address] | [place] [address] | great toe, initial | | | | [phone] | [phone] | encounter (Primary | | | | [...] | | | | | [place] [address] | | | | | | [phone] | | | | | | | [...]
--- OUTSIDE RECORDS SUMMARY | ~2020-01-25 | XMS | Encounter Summary ---
Demographics + + + | Address | [address] | | | [place] [address] [...] Team Providers + +------+ + | Care Formal Waiter/Waitress Name | Role | Phone | + +------+ + | Petrona Thapa | PCP | | | MD | | | + +------+ + Reason for Visit + + + | Reason | Comments | + + + | Medication Refill | | + + + | Infusion | Reclast due approx 07/29/17, last one done at the [facility] | + + + Encounter Details [...] [place] | pathological | | | | [place] [address] | [place] [address] | fracture presence | | | | [phone] | [phone] | (Primary Dx); | | | | [...] approx 07/29/17, [facility] one done at the [facility] Belinda Meehan is a 57 [...] She is seeing a pain specialist in [place] and is receiving hydrocodone from them. She needs a refill of Lomotil for chronic diarrhea which she tolerates well. She also reports some discomfort in the left nostril which is plugged most of the time for last several weeks. No fever or chills. No purulent drainage. Has history of allergies. REVIEW OF SYSTEMS See [facility] for further details. Review of systems [...] 1,000 mcg 1,000 mcg Intramuscular Q30 Days [facility] Maddie Thapa MD 1,000 mcg at 06/01/17 1135 ALLERGIES Allergies Allergen Reactions Codeine Sulfate Nausea Only Levofloxacin Hives, Itching and Rash Amitriptyline Hcl Other (See Comments) Confused and questionable for seizures Xwvuygmnow-Enib-Slcjlvnj Cephalexin Hives Duloxetine Migraines and nausea Ketorolac Hives Morphine Swelling Ropinirole Hcl Hives Tramadol Hcl Nausea Only Vxjbccdzlb-Wzwd-Laioqdjz Hives and Rash Ciprofloxacin Hives and Rash [...] Note: Parts of this documentwere created using [employer] speech recognition software. As a r esult, there may be unintended word spelling errors. Every attempt was made to correct the dictation. nastasia Montoya LPN - 07/16/2017 10:00 AM PST Vitamin [...] | | | | | [place] [address] | | | | | | [phone] | | | | | | | [...]
--- OUTSIDE RECORDS SUMMARY | ~2020-01-25 | XMS | Encounter Summary ---
Demographics + + + | Address | [address] | | | [place] [address] | + + + | Home Phone [...] Team Providers + +------+ + | Care Dike Supervisor Name | Role | Phone | [...] 11/24/ | Office | [facility] at [facility] | Lukasz Charles, | Major Depressive | | 2006 | Visit | [address] | PhD [address] | Disorder, Recurrent | | | | [facility] | [place], [place] | Episode, Moderate | | | | and Healing, | [address] | ([facility]); Spondylosis | | | | Building | [phone] | with Myelopathy, | | | | Floor [facility] [place] | | Lumbar Region; Left | | | | [address] | | Knee Pain; | | | | [phone] | | Adjustment Disorder | | | [...] some pl ans for more activity. Diagnosis: Montgomery I: 1. (296.32) Major depressive disorder, recurrent, moderate. 2. (309.24) Adjustment disorder with anxiety. 3. (307.89) Chronic pain disorder associated with both psychological factors and a gene ral medical condition. Montgomery II: Deferred Montgomery III: abdominal pain, migraine headache, low back pain. Montgomery IV: low finances Montgomery V: GAF 55-60 Plan: Return in 2 weeks. Check mood, pacing, relaxation, activity, distraction. Continue cognit gerda/behavioral therapy. Set goals for summer activity. Total time spent with patient was approximately 45 minutes. LUKASZ CHARLES PHD [facility] [address] [facility], [address] [place] [address] documented in this encount er Plan of [...]
--- OUTSIDE RECORDS SUMMARY | ~2020-01-25 | XMS | Encounter Summary ---
Demographics + + + | Address | [address] | | | [place] [address] | + + + | Home Phone [...] Team Providers + +------+ + | Care Reheat Furnace Operator Name | Role | Phone [...]
--- OUTSIDE RECORDS SUMMARY | ~2020-01-25 | XMS | Encounter Summary ---
Demographics + + + | Address | [address] | | | [place] [address] | + + + | Home Phone [...] Providers + +------+ + | Care Dining Room Helper Name | Role | Phone [...] | | Center at [facility] [address] | JEWEL STRINGER [address] | | | | | [address] [place] | [facility] [address] | | | | | for Health and | [place], [place] | | | | | [place] [address] | [address] | | | | | [place], [place] | [phone] | | | | | [address] | | | | | | [phone] | | | +--------+ + + + [...]
--- OUTSIDE RECORDS SUMMARY | ~2020-01-25 | XMS | Encounter Summary ---
Demographics + + + | Address | [address] | | | [place] [address] | + + + | Home Phone [...] Team Providers + +------+ + | Care Outbound Telemarketer Name | Role | Phone | + [...] | + +--------+ + + + | ID GI TRACT IMAGING, | | 05/12/2006 | | | | INTRALUMINAL | | | | | + +--------+ + + + documented in this encounter Visit Diagnoses Not on filedocumented in this encounter"
--- OUTSIDE RECORDS SUMMARY | ~2020-01-25 | XMS | Encounter Summary ---
Demographics + + + | Address | [address] | | | [place] [address] | + + + | Home Phone [...] Team Providers + +------+ + | Care Technical Document Writer Name | Role | Phone | [...] as of this encounter Progress Notes Interface, Bonding Machine Tender In - 01/12/2005 10:09 AM PDT [id number] [facility] Date: 12/19/2004 Clinic: General [...] as vitamin B12. Melisa Thorne / SHARIF [id number] / [id number] / [id number] / [id number] cc: Pedrito Gutierrez M.D. [address] [address] FAX: [phone] Chris Padgett M.D. General Surgery, [facility] Electronically signed by Kenisha Melton 12-25-2004 04:28:39 PM documented i n this encounter Plan of Treatment Not on filedocumented as of this encounter Visit Diagnoses Not on filedocumented in this encounter"
--- OUTSIDE RECORDS SUMMARY | ~2020-01-25 | XMS | Encounter Summary ---
Demographics + + + | Address | [address] | | | [place] [address] | + + + | Home Phone [...] Team Providers + +------+ + | Care Ceo Ziff Davis Name | Role | Phone | + [...] as of this encounter Progress Notes Interface, Abrasive Grinder In - 01/12/2005 8:09 AM PDT [id number] [facility] Date: 03/07/2004 Clinic: [facility] CENTER TELEPHONE CONVERSATION Subjective: Belinda contacted the [...] cholelithiasis. She is welcome to come to [facility] for evaluation; however, given the distance of a 4-hour travel time, we found it would be more expeditious for her to be seen at her local hospital in [place]. The patient also agrees with this plan [...] additional followup as needed. Christie Kirkpatrick / [id number] / [id number] / [id number] / documented i n this encounter Plan of Treatment Not on filedocumented as of this encounter Visit Diagnoses Not on filedocumented in this encounter"
--- OUTSIDE RECORDS SUMMARY | ~2020-01-25 | XMS | Encounter Summary ---
Demographics + + + | Address | [address] | | | [place] [address] | + + + | Home Phone [...] Team Providers + +------+ + | Care Sexual Assault Counsellor Name | Role | Phone | + [...] + | 02/22/ | Refill | [facility] | Alanis, | Medication Refill | | 2017 | | MEDICINE [address] | MD Petrona | | | | | [place], | [address] [facility] | | | | | [place] [address] | [place] [address] | | | | | [phone] | [phone] | | | | | | | [...] AM PDTLast appt: 01/15/18 Next appt: 03/16/18 Jacklyn mented in this encounter Plan of Treatment +--------+---------+ + + + | Date | Type | Specialty | Care Team | Description | +--------+---------+ + + + | 02/15/ | Office | Internal Medicine | Alanis, | | | 2019 | Visit | | MD Petrona | | | | | | [facility] [address] | | | | | | [place] [address] | | | | | | [phone] | | | | | | | | +--------+---------+ + + + documented as of this encounter Visit Diagnoses Not on filedocumented in this encounter"
--- OUTSIDE RECORDS SUMMARY | ~2020-01-25 | XMS | Encounter Summary ---
Demographics + + + | Address | [address] | | | [place] [address] | + + + | Home Phone [...] Providers + +------+ + | Care Compressor Mechanic Bus Name | Role | Phone | + [...] as of this encounter Progress Notes Interface, Receiver Dispatcher In - 06/06/2005 2:[address] [facility] [id number] [facility] Date: 05/29/2005 Clinic: Bariatric [...] a day. She has had workups in [place] including CT and upper GI with small-bowel followthrough which have reportedly been negative. She has some recent changes in her medications including addition of a calcium channel colby and diclofenac. She says her symptoms gets worse every time she takes pain medicine. She is currently taking oxycodone. Her primary doctor in [place] is Dr. Gutierrez. Physical Examination: Vital Signs: [...] will try to arrange for her in [place], so she does not have to come out here. We will call Dr. Gutierrez to try to arrange for this and followup her within 3 months. The patient was seen with Dr. Padgett. Karen Cisneros M.D. Chris Padgett M.D. / SHARIF [id number] / [id number] / [id number] / [id number] Electronically signed by Chris Padgett 06-05-2005 05:29:09 PM documented i n this encounter Plan of Treatment Not on filedocumented as of this encounter Visit Diagnoses Not on filedocumented in this encounter"
--- OUTSIDE RECORDS SUMMARY | ~2020-01-25 | XMS | Encounter Summary ---
Demographics + + + | Address | [address] | | | [place] [address] | + + + | Home Phone [...] Team Providers + +------+ + | Care Hearing Aid Assembly Supervisor Name | Role | Phone [...] | | | | Clinical Nutrition | [place], [place] | | | | | [address] | [address] | | | | | Loop Mailcode: OPC5 | [phone] | | | | | Outpatient Clinic | | | | | | [facility], | | | | | | [place] [address] | | | | | | [phone] | | | +--------+ + + + [...]
--- OUTSIDE RECORDS SUMMARY | ~2020-01-25 | XMS | Encounter Summary ---
Demographics + + + | Address | [address] | | | [place] [address] | + + + | Home Phone [...] Team Providers + +------+ + | Care Vineyardist Name | Role | Phone | + [...] as of this encounter Progress Notes Interface, Coat Finisher In - 01/12/2005 8:09 AM PDT [id number] [facility] Date: 10/23/2003 Clinic: Ms. [...] ahead. Chris Padgett M.D. CD / HS [id number] / [id number] / [id number] / [id number] documented i n this encounter Plan of Treatment Not on filedocumented as of this encounter Visit Diagnoses Not on filedocumented in this encounter"
--- OUTSIDE RECORDS SUMMARY | ~2020-01-25 | XMS | Encounter Summary ---
Demographics + + + | Address | [address] | | | [place] [address] | + + + | Home Phone [...] Providers + +------+ + | Care Custom Tailor Name | Role | Phone | + [...] [facility] | | | | | [place] [address] | [place] [address] | | | | | [phone] | [phone] | | | | | | | [...] incontinence supplies form. Patient will call the [employer] to see if they receivedElectron ically signed [...] | | | | | [place] [address] | | | | | | [phone] | | | | | | | | +--------+---------+ + + + documented as of this encounter Visit Diagnoses Not on filedocumented in this encounter"
--- OUTSIDE RECORDS SUMMARY | ~2020-01-25 | XMS | Encounter Summary ---
Demographics + + + | Address | [address] | | | [place] [address] | + + + | Home Phone [...] Team Providers + +------+ + | Care Rheostat Assembler Name | Role | Phone | [...] | | | | | | | [place], [place] | | | | | | | [address] | | | | | | | Phone: | | | | | | | [phone] | | | | | | | Fax: | | | | | | | [phone] | +--------+--------+ + + + + Encounter Details +--------+---------+ + + + | Date | Type | Department | Care Team | Description | +--------+---------+ + + + | 01/05/ | Office | [facility] | Eliezer Ruano, | Follow-Up | | 2007 | Visit | Center [address] | [address] [facility] | Examination | | | | Avjennifer Mailcode: CH4S | [address] | Following Surgery | | | | [facility] | [place], [place] | (Primary Dx) | | | | and Healing, | [address] | | | | | Building | [phone] | | | | | Floor [place], [place] | | | | | | [address] | | | | | | [phone] | | | +--------+---------+ + + + [...] and plan of care. ELIEZER RUANO MD [facility] [address] [place] [address] And [facility], [address] [place] [address] Tejas Trevino - 01/05 1:54 PM PDTS: Pt is here one week postop lysis of adhesions. She is doing well. She i s still having some pain. PE: Midline incision closed with reshma. [place] removed. There was a small opening of [...]
--- OUTSIDE RECORDS SUMMARY | ~2020-01-25 | XMS | Encounter Summary ---
Demographics + + + | Address | [address] | | | [place] [address] | + + + | Home Phone [...] Team Providers + +------+ + | Care Retention Manager Name | Role | Phone | [...] as of this encounter Progress Notes Interface, Fur Dry Cleaner Hand In - 01/03/2006 3:02 AM PDTCLINIC DATE: 11/01/2002 NEUROMUSCULAR CLINIC PRIMARY CARE PROVIDER: Pedrito Gutierrez M.D. OTHER PHYSICIAN: Issac Meeks M.D., [facility] Endocrinology. PROBLEM LIST 1. Fibromyalgia and chronic [...] fatigue. She reportedly has begun walking with [place] crutches much of the time due to [...] Irving Pete M.D. Neurology/Neuromuscular Fellow TBD / [id number] / [id number] / [id number] / [id number] C: 11/10/2002 BRAD cc: Issac Meeks M.D. [facility] Endocrinology Pedrito Gutierrez M.D. [address] [place], [place] [id number] signed by Interface, Fur Dry Cleaner Hand In at 01/03/2006 3:0 2 AM PDTdocumented in this encounter Plan of Treatment Not on filedocumented as of this encounter Visit Diagnoses Not on filedocumented in this encounter
--- OUTSIDE RECORDS SUMMARY | ~2020-01-25 | XMS | Encounter Summary ---
Demographics + + + | Address | [address] | | | [place] [address] | + + + | Home Phone [...] Team Providers + +------+ + | Care Pension Consultant Name | Role | Phone | [...] as of this encounter Progress Notes Interface, Assembler Camper In - 04/07/2006 2:32 AM PDT [id number] GEOVANNI SKELTON Molly [id number] Clinic Date: 04/01/2006 Clinic: Rheumatology Belinda Meehan is here for a couple of trigger point injections. She comes from [place]. Tomorrow, she is due for an EGD [...] 4 months. Caitlin Rivera M.S., F.N.P. / [id number] / [id number] / [id number] / [id number] Electronically signed by Caitlin Rivera 04-06-2006 03:23:35 PM documented i n this encounter Plan of Treatment Not on filedocumented as of this encounter Visit Diagnoses Not on filedocumented in this encounter"
--- OUTSIDE RECORDS SUMMARY | ~2020-01-25 | XMS | Encounter Summary ---
Demographics + + + | Address | [address] | | | [place] [address] | + + + | Home Phone [...] | 07/30/ | Office | [facility] 700 | Clinic, | Progress Note | | 2006 | Visit-Trans | [facility] | Endocrinology | | | | kurt | Sacha | | | | | | [facility], | | | | | | 7th floor | | | | | | [place], [place] | | | | | | [address] | | | | | | [phone] | | | +--------+ + + + [...] as of this encounter Progress Notes Interface, Screen Maker In - 09/16/2006 7:22 AM PDT [id number] GEOVANNI Barnes [id number] Clinic Date: 07/30/2006 Clinic: Endocrinology Subjective: Belinda [...] year. Beto Meeks M.D. PD / HS [id number] / [id number] / [id number] / [id number] cc: Joanna Arshad M.D. Jonathan Hitzman, M.D. [address] [facility] [place] [address] Electronically signed by Beto Meeks 09-15-2006 11:40:17 PM documented in this encounter Plan of Treatment Not on filedocumented as of this encounter Visit Diagnoses Not on filedocumented in this encounter"
--- OUTSIDE RECORDS SUMMARY | ~2020-01-25 | XMS | Encounter Summary ---
Demographics + + + | Address | [address] | | | [place] [address] | + + + | Home Phone [...] Team Providers + +------+ + | Care Producer Name | Role | Phone | [...] | | | | | | [place], | | | | | | | [place] | | | | | | | [address] | | | | | | | Phone: | | | | | | | [phone] | | | | | | | Fax: | | | | | | | [phone] | +--------+--------+ + + + + Encounter Details +--------+---------+ + + + | Date | Type | Department | Care Team | Description | +--------+---------+ + + + | 07/10/ | Office | [facility] | Eliezer Ruano, | Abdominal Pain, | | 2008 | Visit | [place] [address] | [address] | dumping syndrome Hx | | | | Ave Mailcode: CH4S | [address] | of gastric bypass | | | | [facility] | [place], [place] | (Primary Dx) | | | | and Healing, | [address] | | | | | Building | [phone] | | | | | Floor [place], [place] | | | | | | [address] | | | | | | [phone] | | | +--------+---------+ + + + [...] and plan of care. ELIEZER RUANO MD [address] Mailcode: [place] [address] Yuriy Mayo MD - 06/16 [...] Morphine IM ( only in [facility]) made gut pain worse 08/27/06: Trial of oral MSIR caused leg swelling Clarithromycin Hives Mainly in the legs Current outpatient prescriptions prior to encounter Medication Sig Dispense Refill aspirin chewable (BABY ASPIRIN) 81 mg Oral Tablet, Chewable 2 daily buPROPion XL (WELLBUTRIN XL) 300 mg Oral Tablet Sustained Release 24 hr take 1 tablet ( 300 mg) by oral route once daily zxcvygljao-pmfjutdjhtyvr-xkzqgcno (FIORICET) 50-325-40 mg Oral Tablet take 2 [...] 278 01/18 Paniculectomy Hx lumbar fusion 05/2008 L1-G8ciuwzm with bone spur removals Review of Systems: [...]
--- OUTSIDE RECORDS SUMMARY | ~2020-01-25 | XMS | Encounter Summary ---
Demographics + + + | Address | [address] | | | [place] [address] | + + + | Home Phone [...] Team Providers + +------+ + | Care Menagerie Superintendent Name | Role | Phone | + +------+ + | Pedrito Gutierrez MD | PCP | | + +------+ + Encounter Details +--------+ + + + + | Date | Type | Department | Care Team | Description | +--------+ + + + + | 05/22/ | Telephone | Digestive Health | Carlos Arreola, | | | 2005 | | Center at [facility] [address] | [address] [facility] | | | | | [facility] | [facility] | | | | | for [facility] and | [place] [address] | | | | | [facility] 2 | [phone] | | | | | [place], [place] | | | | | | [address] | | | | | | [phone] | | | +--------+ + + + [...]
--- OUTSIDE RECORDS SUMMARY | ~2020-01-25 | XMS | Encounter Summary ---
Demographics + + + | Address | [address] | | | [place] [address] | + + + | Home Phone [...] Team Providers + +------+ + | Care Configuration Management Analyst Name | Role | Phone [...] as of this encounter Progress Notes Interface, Finance Executive In - 01/12/2005 6:20 AM PDT JenniferBelinda garner [id number] MED REC NUMBER: [id number] NAME : Belinda Meehan DATE : 1960 DISCHARGE ASSESSMENT AND CASE MANAGEMENT NOTES Chart Reviewed: 2004-12-04 15:29:00 Pigment Presser: Lou Jordan RN Preadmission living situation: family If facilty, name: Additional needs assessment: Case Management Initial Assessment and Ongoing Notes: 12/04/2004 15:29 Rec'd referral from IR printout. Pt presenti jen for panniculectomy per Dr. Chris Padgett 12/06/2004. ----- ------- Living Situation: Pt lives w/ her son, Sree in [place], [place]. Pt also has a caregiver from [facility] [employer] [facility] [employer] come in for 8-9 hours per day when her son is not home. Transportation: Pat w/ [facility] will take pt home (H) (C). Home Health: Pt has an RN from [facility] [employer] [facility] visit once a month for an assesment (H) or (C). Medical Equipment: Pt states that she has forearm crutches, a shower chair, and is working on getting hand bars installed into her shower. ---- Co-Morbidities: Panniculitis, s/p gastric bypass, arthritis, asthma, NIDDM, GERD, HTN, and sleep apnea. ------ Providers: PCP is Dr. Pedrito Gutierrez in [facility] and Dr. William Meeks [facility] metabolic disorder clinic. Narrative: Pt asked if [...] or concerns, [place] [id number] documented i n this encounter Plan of Treatment Not on filedocumented as of this encounter Visit Diagnoses Not on filedocumented in this encounter"
--- OUTSIDE RECORDS SUMMARY | ~2020-01-25 | XMS | Encounter Summary ---
Demographics + + + | Address | [address] | | | [place] [address] | + + + | Home Phone [...] Providers + +------+ + | Care Residential Supervisor Name | Role | Phone | [...] [facility] | [place], [place] | | | | | [address] | [address] | | | | | [address] | [phone] | | | | | Physician's | | | | | | Pavilion, 1st floor | | | | | | [place], [place] | | | | | | [address] | | | | | | [phone] | | | +--------+ + + + [...]
--- OUTSIDE RECORDS SUMMARY | ~2020-01-25 | XMS | Encounter Summary ---
Demographics + + + | Address | [address] | | | [place] [address] | + + + | Home Phone [...] Team Providers + +------+ + | Care Pharmaceutical Service Representative Name | Role | Phone | + +------+ + | Petrona Thapa | PCP | | | MD | | | + +------+ + Encounter Details +--------+ + + + + | Date | Type | Department | Care Team | Description | +--------+ + + + + | 11/14/ | Hospital | [facility] | Alanis, | Toe pain, chronic, | | 2019 | Encounter | [facility] | MD Petrona | left | | | | [address] | [address] [facility] | | | | | [place] | [place] [address] | | | | | [address] | [phone] | | | | | [phone] | | | +--------+ + + + [...] 0.2-0.5 % | | | 0 | 02/13/ | | | ophthalmic solution | | [...] | | | | | | : long-term | Decreased | | | | | [...] | | | | | [place] [address] | | | | | | [phone] | | | | | | | [...]
--- OUTSIDE RECORDS SUMMARY | ~2020-01-25 | XMS | Encounter Summary ---
Demographics + + + | Address | [address] | | | [place] [address] | + + + | Home Phone [...] Providers + +------+ + | Care Asphalt Tar And Gravel Roofer Name | Role | Phone | + [...] [address] | | | | | | [place], [place] | | | | | | [address] | | | | | | [phone] | | | +--------+--------+ + + + [...]
--- OUTSIDE RECORDS SUMMARY | ~2020-01-25 | XMS | Encounter Summary ---
Demographics + + + | Address | [address] | | | [place] [address] | + + + | Home Phone [...] Team Providers + +------+ + | Care Curator Of Education Name | Role | Phone | [...] | | | [facility] | [place], [place] | | | | | [address] | [address] | | | | | [address] | [phone] | | | | | Physician's | | | | | | Pavilion, 1st floor | | | | | | [place], [place] | | | | | | [address] | | | | | | [phone] | | | +--------+--------+ + + + [...]
--- OUTSIDE RECORDS SUMMARY | ~2020-01-25 | XMS | Encounter Summary ---
Demographics + + + | Address | [address] | | | [place] [address] | + + + | Home Phone [...] Team Providers + +------+ + | Care Complex Director Name | Role | Phone | [...] | 2006 | Visit | [facility] | [address] | Pain; Cervical Pain; | | | | [place] [address] [place], | Pain in Joint, Site | | | | [address] [facility] | [place] [address] | Unspecified; | | | | Health and Healing, | | Depression | | | | Building | | | | | | Floor [place], [place] | | | | | | [address] | | | | | | [phone] | | | +--------+---------+ + + + [...] EVALUATION NOTE Date: 06/23/2006 Name: Belinda Meehan [id number] y.o. female Start of Care: 06/23/2005 [...] the last few gregory hs. Handedness: right [place]: [place], [place] Chief Complaint: Headaches and cervical pain, bilateral [...] 2005 endoscopy Past Surgical History: GASTRIC BYPASS DarrionYudy Padgett Comment: wt 278 01/18 PANICULECTOMY HX CHOLECYSTECTOMY HX HYSTERECTOMY HX SALPINGO-OOPHORECTOMY COLONOSCOPY Comment: 03/2006 HX TONSILLECTOMY MI D&C AFTER DELIVERY MI INJECT TRIGGER POINT, 1 OR 2 Medications: [...] complete plan of care with Miranda Lambert N.PYudy and Dr. Andres Ogden, psycholog ist. Activate [...] + + +--------+ + + | MI PHYS THERAPY | Procedures | Routin | [...]
--- OUTSIDE RECORDS SUMMARY | ~2020-01-25 | XMS | Encounter Summary ---
Demographics + + + | Address | [address] | | | [place] [address] | + + + | Home Phone [...] Team Providers + +------+ + | Care Cdl Flatbed Truck Driver Name | Role | Phone [...] + + | 08/18/ | Office | [facility] | Alanis, | Preop examination | | 2018 | Visit | MEDICINE [address] | MD Petrona | (Primary Dx); | | | | [address] [place], | [address] [facility] [facility] | Tr[place] finger [place] | | | | [place] [address] | [place] [address] | all digits of left | | | | [phone] | [phone] | hand | | | | | [...] surgery tomorrow in her thumb been index gonzalez glover with Dr. Dr Jefe Cruz in [place], [place]. . She had surgery before and [...] Had a basal metabolic panel yesterday at [facility] in [place] which came back okay. REVIEW OF SYSTEMS [...] (See Comments) Confused and questionable for seizures Xzamugvguh-Jcpy-Xnyptpxn Cephalexin Hives Duloxetine Migraines and nausea Ketorolac Hives Morphine Swelling Ropinirole Hcl Hives Tramadol Hcl Nausea Only Vszjntrcjm-Kduq-Stjtsgck Hives and Rash Ciprofloxacin Hives and Rash [...] Note: Parts of this documentwere created using [employer] speech recognition software. As a r esult, [...] | | | | | | [address] [place] [address] | | | | | | [place] [address] | | | | | | [phone] | | | | | | | [...]
--- OUTSIDE RECORDS SUMMARY | ~2020-01-25 | XMS | Encounter Summary ---
Demographics + + + | Address | [address] | | | [place] [address] | + + + | Home Phone [...] + +------+ + | Care Blood Bank Credit Clerk Name | Role | Phone | + +------+ + | Pedrito Gutierrez MD | PCP | | + +------+ + Encounter Details +--------+ + + + + | Date | Type | Department | Care Team | Description | +--------+ + + + + | 08/04/ | Telephone | [facility] Health | Chris Padgett, | | | 2006 | | [place] [address] | [address] [facility] | | | | | [place] Mailcode: CH4S | [facility] | | | | | Center for Health | [place], [place] | | | | | and Healing, | [address] | | | | | Building | [phone] | | | | | Floor [place], [place] | | | | | | [address] | | | | | | [phone] | | | +--------+ + + + [...]
--- OUTSIDE RECORDS SUMMARY | ~2020-01-25 | XMS | Encounter Summary ---
Demographics + + + | Address | [address] | | | [place] [address] | + + + | Home Phone [...] Providers + +------+ + | Care Certified Indoor Environmentalist Name | Role | Phone | + [...] Refill Request | | 2009 | | [place] [address] | [address] | ([place]) | | | | [place] Mailcode: CH4S | [facility] | | | | | [facility] | [place], [place] | | | | | and Healing, | [address] | | | | | [facility] | [phone] | | | | | Floor [place], [place] | | | | | | [address] | | | | | | [phone] | | | +--------+--------+ + + + [...]
--- OUTSIDE RECORDS SUMMARY | ~2020-01-25 | XMS | Encounter Summary ---
Demographics + + + | Address | [address] | | | [place] [address] | + + + | Home Phone [...] Providers + +------+ + | Care Bias Cutting Machine Operator Name | Role | [...] of this encounter Progress Notes Interface, Inspector And Hand Packager In - 08/30/2005 2:07 AM PST [id number] GEOVANNI Barnes Clinic Date: 07/24/2005 Clinic: Surgery [...] for surgery. Chris Padgett M.D. ROSA / [id number] / [id number] / [id number] / [id number] Electronically signed by Chris Padgett 08-29-2005 03:28:14 PM documented i n this encounter Plan of Treatment Not on filedocumented as of this encounter Visit Diagnoses Not on filedocumented in this encounter"
--- OUTSIDE RECORDS SUMMARY | ~2020-01-25 | XMS | Encounter Summary ---
Demographics + + + | Address | [address] | | | [place] [address] | + + + | Home Phone [...] Providers + +------+ + | Care Data Governance Consultant Name | Role | Phone | + +------+ + | Pedrito Gutierrez MD | PCP | | + +------+ + Encounter Details +--------+ + + + + | Date | Type | Department | Care Team | Description | +--------+ + + + + | 04/17/ | Telephone | [facility] | Carlos Arreola, | | | 2005 | | Gastroenterology/Hep | [address] | | | | | atology [address] | | | | | [address] | [place] [address] | | | | | Mailcode: PV310 | [phone] | | | | | Physician's [address] | | | | | | [address] | | | | | | [place], [place] | | | | | | [address] | | | | | | [phone] | | | +--------+ + + + [...]
--- OUTSIDE RECORDS SUMMARY | ~2020-01-25 | XMS | Encounter Summary ---
Demographics + + + | Address | [address] | | | [place] [address] | + + + | Home Phone [...] Team Providers + +------+ + | Care Administrator Pesticide Name | Role | Phone | + +------+ + | Petrona Thapa | PCP | | | MD | | | + +------+ + Reason for Visit +--------+--------+ + | Reason | Onset | Comments | | | Date | | +--------+--------+ + | Other | 01/04/ | | | | 2017 | | +--------+--------+ + Encounter Details +--------+ + + + + | Date | Type | Department | Care Team | Description | +--------+ + + + + | 01/04/ | Telephone | [facility] [place] | Ulysses Genao MD | Other | | 2017 | | OTOLARYNGOLOGY [address] | [address] | | | | | [address] | [address] [facility] | | | | | [place], [place] | [place] [address] | | | | | [address] | [phone] | | | | | [phone] | | | +--------+ + + + [...] encounter Miscellaneous Notes Telephone Encounter - Louise Randall Dolly Operator - 01/04/2018 2:48 PM PDTClosin g phone note 2: 57 PM PDTTelephone Encounter - Teja Hussein - 01/04/2018 1:08 PM PDTName of Caller: Kaleigh marcelino from [facility] out patient Name of Patient: Belinda Meehan Reason for call: [facility] was called to check the status on referral. Pt has an appointment at 10 am tomorrow and they can not see her without the referral. Informed [facility] that referral is pending referral. She would like a call when that is approved. Provider/Nurse: Dr. Genao Call back number: [phone] documented in this encou nter Plan of [...] | | | | | [place] [address] | | | | | | [phone] | | | | | | | | +--------+---------+ + + + documented as of this encounter Visit Diagnoses Not on filedocumented in this encounter"
--- OUTSIDE RECORDS SUMMARY | ~2020-01-25 | XMS | Encounter Summary ---
Demographics + + + | Address | [address] | | | [place] [address] | + + + | Home Phone [...] Providers + +------+ + | Care School Clerk Name | Role | Phone | [...] + | 09/30/ | Refill | [facility] | Alanis, | Medication Refill | | 2018 | | MEDICINE [address] | MD Petrona | | | | | [place], | [address] [facility] | | | | | [place] [address] | [place] [address] | | | | | [phone] | [phone] | | | | | | | [...] | | | | | [address] | | | | | | [place] [address] | | | | | | [phone] | | | | | | | | +--------+---------+ + + + documented as of this encounter Visit Diagnoses Not on filedocumented in this encounter"
--- OUTSIDE RECORDS SUMMARY | ~2020-01-25 | XMS | Encounter Summary ---
Demographics + + + | Address | [address] | | | [place] [address] | + + + | Home Phone [...] Team Providers + +------+ + | Care Street Light Mechanic Name | Role | Phone | [...] as of this encounter Progress Notes Interface, Teradata Solution Architect In - 02/15/2006 2:03 AM PDT [id number] GEOVANNI BELINDA Molly [id number] Clinic Date: 01/29/2006 Clinic: Endocrinology Belinda Meehan [...] her visits to the Emergency Department in [place], she apparently had elevated "liver enzyme levels" and her blood pressure was up to 160/98. She subsequently underwent diagnostic testing that apparently included CT imaging of her abdomen and upper GI endoscopy, abdominal ultrasound, and other testing; the results of which have apparently been normal. She started going to [employer] approximately 2 weeks ago which has increased her level of physical activity. She has only occasional headaches, due in part to ongoing treatment with propanolol. She apparently was referred by Dr. Padgett to see a physics tutor here at [facility] for further evaluation of severe [...] ([facility] and pulse 60 beats per minute [...] evaluated recently at the Emergency Department in [place]. Her alkaline phosphatase level today is about [...] would benefit from being evaluated by a physics tutor. According to the patient, no gastroenterologists are available in [place]. She needs to petition her primary care provider and her insurance company to give the necessary authorization to allow her to be evaluated by a physics tutor. Plan: 1. Await results of serum 25-hydroxyvitamin [...] She needs to be seen by a physics tutor. 5. Return to see me again in 3 months. Beto Meeks M.D. PD / HS [id number] / [id number] / [id number] / cc: Pedrito Gutierrez M.D. [address] [place] [address] Chris Padgett M.D. Electronically signed by Beto Meeks 02-14-2006 02:02:55 AM documented i n this encounter Plan of Treatment Not on filedocumented as of this encounter Visit Diagnoses Not on filedocumented in this encounter
--- OUTSIDE RECORDS SUMMARY | ~2020-01-25 | XMS | Encounter Summary ---
Demographics + + + | Address | [address] | | | [place] [address] | + + + | Home Phone [...] Team Providers + +------+ + | Care Stamps Or Coins Salesperson Name | Role | Phone | [...] | Other | | 2008 | | [place] [address] | [address] | | | | | [place] Mailcode: CH4S | [address] | | | | | [facility] | [place], [place] | | | | | and Healing, | [address] | | | | | [place] [address], [facility] | [phone] | | | | | Floor [place], [place] | | | | | | [address] | | | | | | [phone] | | | +--------+ + + + [...]
--- OUTSIDE RECORDS SUMMARY | ~2020-01-25 | XMS | Encounter Summary ---
Demographics + + + | Address | [address] | | | [place] [address] | + + + | Home Phone [...] Team Providers + +------+ + | Care Print Operator Name | Role | Phone | [...] + + | 08/04/ | Refill | [facility] | Alanis, | Medication Refill | | 2017 | | MEDICINE [address] | MD Petrona | | | | | [place], | [address] [facility] | | | | | [place] [address] | [place] [address] | | | | | [phone] | [phone] | | | | | | | [...] | | | | | [place] [address] | | | | | | [phone] | | | | | | | | +--------+---------+ + + + documented as of this encounter Visit Diagnoses Not on filedocumented in this encounter"
--- OUTSIDE RECORDS SUMMARY | ~2020-01-25 | XMS | Encounter Summary ---
Demographics + + + | Address | [address] | | | [place] [address] | + + + | Home Phone [...] Providers + +------+ + | Care Customer Business Manager Name | Role | Phone | + +------+ + | Petrona Thapa | PCP | | | MD | | | + +------+ + Reason for Visit + +--------+ + | Reason | Onset | Comments | | | Date | | + +--------+ + | Medication Prior | 03/29/ | Gabapentin | | Authorization | 2017 | | + +--------+ + Encounter Details +--------+ + + + + | Date | Type | Department | Care Team | Description | +--------+ + + + + | 03/29/ | Telephone | [facility] | Alanis, | Medication Prior | | 2017 | | [address] | MD Petroan | Authorization | | | | [place], | [address] [place] | (Gabapentin ) | | | | [place] [address] | [place] [address] | | | | | [phone] | [phone] | | | | | | | [...] Miscellaneous Notes Telephone Encounter - Mayda Montoya 03/29/2018 9:32 AM PDTReceived prior auth request aren Juraez from [facility]. Script from pharmacy for requested 360 capsules was dated 2017. Medication has since been updated in January for 270 capsules that don't require author ization. Sent message to nurse asking to call pharmacy and give verbal over the phone with u pdated prescription. Please see referral#[id number] on details. Closed encounter today. Electro nically signed by Mayda Montoya at 03/29/2018 9:34 AM PDTdocumented in this encounter Plan of [...] | | | | | [place] [address] | | | | | | [phone] | | | | | | | | +--------+---------+ + + + documented as of this encounter Visit Diagnoses Not on filedocumented in this encounter"
--- OUTSIDE RECORDS SUMMARY | ~2020-01-25 | XMS | Encounter Summary ---
Demographics + + + | Address | [address] | | | [place] [address] | + + + | Home Phone [...] Providers + +------+ + | Care City Supervisor Name | Role | Phone | [...] | | | | | | [place], | | | | | | | [place] | | | | | | | [address] | | | | | | | Phone: | | | | | | | [phone] | | | | | | | Fax: | | | | | | | [phone] | +--------+--------+ + + + + Encounter Details +--------+---------+ + + + | Date | Type | Department | Care Team | Description | +--------+---------+ + + + | 07/10/ | Office | [facility] | Eliezer Ruano, | Abdominal Pain, | | 2008 | Visit | [place] [address] | [address] | dumping syndrome Hx | | | | Ave Mailcode: CH4S | [address] | of gastric bypass | | | | [facility] | [place], [place] | (Primary Dx) | | | | and Healing, | [address] | | | | | Building | [phone] | | | | | Floor [place], [place] | | | | | | [address] | | | | | | [phone] | | | +--------+---------+ + + + [...] and plan of care. ELIEZER RUANO MD [address] Mailcode: [place] [address] Yuriy Mayo MD - 06/16 [...] Morphine IM ( only in [facility]) made gut pain worse 08/27/06: Trial of oral MSIR caused leg swelling Clarithromycin Hives Mainly in the legs Current outpatient prescriptions prior to encounter Medication Sig Dispense Refill aspirin chewable (BABY ASPIRIN) 81 mg Oral Tablet, Chewable 2 daily buPROPion XL (WELLBUTRIN XL) 300 mg Oral Tablet Sustained Release 24 hr take 1 tablet ( 300 mg) by oral route once daily zblhyltnaj-acwubfzdtfgqq-ratztyzp (FIORICET) 50-325-40 mg Oral Tablet take 2 [...] 278 01/18 Paniculectomy Hx lumbar fusion 05/2008 L1-S1vaxfxu with bone spur removals Review of Systems: [...]
--- OUTSIDE RECORDS SUMMARY | ~2020-01-25 | XMS | Encounter Summary ---
Demographics + + + | Address | [address] | | | [place] [address] | + + + | Home Phone [...] Team Providers + +------+ + | Care Mailroom Personnel Name | Role | Phone | + +------+ + | Pedrito Gutierrez MD | PCP | | + +------+ + Encounter Details +--------+ + + + + | Date | Type | Department | Care Team | Description | +--------+ + + + + | 08/22/ | Hospital | Radiology/Imaging | | | | 2008 | Encounter | Lab at [facility] [address] | | | | | | [address] [facility] | | | | | | [facility] and Healing, | | | | | | [place] [address], [facility] | | | | | | Floor [place], [place] | | | | | | [address] | | | | | | [phone] | | | +--------+ + + + [...]
--- OUTSIDE RECORDS SUMMARY | ~2020-01-25 | XMS | Encounter Summary ---
Demographics + + + | Address | [address] | | | [place] [address] | + + + | Home Phone [...] Team Providers + +------+ + | Care Cephalometric Analyst Name | Role | Phone | [...] [place] | | | | | | [address] | | | | | | [phone] | | | +--------+ + + + [...] | | | | | [place] [address] | | | | | | [phone] | | | | | | | | +--------+---------+ + + + documented as of this encounter Visit Diagnoses Not on filedocumented in this encounter"
--- OUTSIDE RECORDS SUMMARY | ~2020-01-25 | XMS | Encounter Summary ---
Demographics + + + | Address | [address] | | | [place] [address] | + + + | Home Phone [...] Providers + +------+ + | Care Manager Neonatal Name | Role | Phone | + [...] 2007 | Only | [address] | [phone] | | | | | Rd Mailcode: RPB07 | | | | | | [place], [place] | | | | | | [address] | | | | | | [phone] | | | +--------+ + + + [...] + | [facility] DEPARTMENT OF | [facility] | [place] [address] | | | PATHOLOGY | [address] | | | + + + + + | [place] DEPARTMENT OF | [facility] | [place] [address] | | | PATHOLOGY | [address] | | | + + + + + documented in this encounter Visit Diagnoses Not on filedocumented in this encounter"
--- OUTSIDE RECORDS SUMMARY | ~2020-01-25 | XMS | Encounter Summary ---
Demographics + + + | Address | [address] | | | [place] [address] | + + + | Home Phone [...] Providers + +------+ + | Care Hr Generalist Name | Role | Phone | + [...] [address] [facility] | | | | | [place] [facility] | [place], [place] | | | | | [address] | [address] | | | | | [address] | [phone] | | | | | [facility] | | | | | | Physician's | | | | | | Pavilion [place], | | | | | | [place] [address] | | | | | | [phone] | | | +--------+--------+ + + + [...]
--- OUTSIDE RECORDS SUMMARY | ~2020-01-25 | XMS | Encounter Summary ---
Demographics + + + | Address | [address] | | | [place] [address] | + + + | Home Phone [...] Providers + +------+ + | Care Clinical Lab Scientist Name | Role | Phone | [...] as of this encounter Progress Notes Interface, Tomb Maker Helper In - 01/11/2005 7:39 PM PDT Referred [...] 3-6 months time. She is coming from [place] so this can be scheduled on the same day of her physician visit. General surgery can schedule this. 5. Indra's business card with contact information for questions. Svetlana Maki R.D., LKyrie. SR/y39 P [phone] cc: documente d in this encounter Plan of Treatment Not on filedocumented as of this encounter Visit Diagnoses Not on filedocumented in this encounter"
--- OUTSIDE RECORDS SUMMARY | ~2020-01-25 | XMS | Encounter Summary ---
Demographics + + + | Address | [address] | | | [place] [address] | + + + | Home Phone [...] + +------+ + | Care Director Of Digital Marketing Name | Role | Phone | + +------+ + | Pedrito Gutierrez MD | PCP | | + +------+ + Encounter Details +--------+ + + + + | Date | Type | Department | Care Team | Description | +--------+ + + + + | 01/14/ | Telephone | [facility] | Chris Padgett, | | | 2009 | | [place] [address] | [address] [facility] | | | | | [place] Mailcode: CH4S | [facility] | | | | | [facility] | [place], [place] | | | | | and Healing, | [address] | | | | | [facility] | [phone] | | | | | Floor [place], [place] | | | | | | [address] | | | | | | [phone] | | | +--------+ + + + [...]
--- OUTSIDE RECORDS SUMMARY | ~2020-01-25 | XMS | Encounter Summary ---
Demographics + + + | Address | [address] | | | [place] [address] | + + + | Home Phone [...] Providers + +------+ + | Care Solar Panel Installer Name | Role | Phone | [...] + + | 05/28/ | Office | [facility] Comprehensive | Delfina Molina, | LBP (Low Back Pain); | | 2006 | Visit | Pain Center at | ANP | Bilateral Knee | | | | [facility] | | Pain; Arthroplasty | | | | [address] | | of the Left Knee; | | | | [facility] | | Encounter for | | | | and Healing, | | Long-Term (Current) | | | | Building | | Use of Opioids; | | | | Floor [place], [place] | | Migraine Headache; | | | | [address] | | Herniated Lumbar | | | | [phone] | | Intervertebral Disc | | | [...] gill. documented in this encounter Progress Notes Ines Molinaanne - 05/28/2007 11:00 AM PSTFormatting of this note might be different from lesli gomez. 05/28/2007 Belinda Meehan is a 47 y.o. female [facility] Comprehensive [...] facilitating PRN opioid therapy I called and magdalene eft a voice message with his clinic [...] diagnostics and lab results. 6. [facility] with [facility] Post arthroplasty physical rehabiliation. 7. Schedule follow up in one month or sooner if needed - The pateint was asked to call the clinic with any concerns or questions. DELFINA MOLINA [facility] Mail code CH 4P [facility] and [address] [address] asha Nolasco - 05/28/2007 10:01 AM [...] of 103.2 she was seen here at [facility] today the temp is 100.2 3. Do [...]
--- OUTSIDE RECORDS SUMMARY | ~2020-01-25 | XMS | Encounter Summary ---
Demographics + + + | Address | [address] | | | [place] [address] | + + + | Home Phone [...] Team Providers + +------+ + | Care Velvet Cutter Name | Role | Phone | + +------+ + | Petrona Thapa | PCP | | | MD | | | + +------+ + Encounter Details +--------+ + + + + | Date | Type | Department | Care Team | Description | +--------+ + + + + | 12/04/ | Orders Only | [facility] [place] [facility] | Alanis, | | | 2019 | | MEDICINE [address] | MD Petrona | | | | | [place], | [address] [facility] | | | | | [place] [address] | [place] [address] | | | | | [phone] | [phone] | | | | | | | [...] | | | | | [place] [address] | | | | | | [phone] | | | | | | | | +--------+---------+ + + + documented as of this encounter Visit Diagnoses Not on filedocumented in this encounter"
--- OUTSIDE RECORDS SUMMARY | ~2020-01-25 | XMS | Encounter Summary ---
Demographics + + + | Address | [address] | | | [place] [address] | + + + | Home Phone [...] Team Providers + +------+ + | Care Ethanol Maintenance Mechanic Name | Role | Phone | [...] | [place] [address] | Clementina W[address] [place], | Myelopathy, Lumbar | | | | [address] [facility] for | [place] [address] | Region; Herniated | | | | Health and Healing, | | Lumbar | | | | | | Intervertebral Disc | | | | Floor [place], [place] | | L4-5; Fibromyalgia | | | | [address] | | syndrome 729.1 | | | | [phone] | | | +--------+---------+ + + + [...] Date: December 02, 2006 Patient: Belinda Meehan, [id number], 1960 I agree with the proposed Physical Therapy Treatment Plan. Provider: DELFINA MOLINA ANP Nathalia Garrett - 007 11:16 AM PDT Physical Therapy Medicare Progress Note Date: 11/27/2006 Belinda Meehan [id number]. 1960 Start of Care: 11/24/2006 Referring Provider: [...] 09/23/2006 Insurance: Medicare Number of used/authorized visits: /2 Medicare certification from: 11/13/2006 through 12/12/2006 Subjective: [...] the free margin and undersurface of the airport operations coordinator horn of the medial meniscus suspicious for [...] gait using bilateral lofstrand crutches Patient's goals: half-way: Ambulation with single based cane Treatment: Patient was instructed in quadriceps isometrics; quad isometrics with supine hi p ABD/ADD, emphasizing stabilization of core; and isometric hip ADD which she will follow th with at home on a twice daily [...] are to increased strength and endurance . FCI goals: Improve gait so patient can ambulate with single based cane. Plan: Patient will return for f/u visit in 2 weeks and at that time will progress in core, hip, and knee strengthening regime. Treatment began: 1100 Treatment ended: 1200 Nathalia Arora, Physical Therapist License #[id number] documented in this encoun ter Plan of [...]
--- OUTSIDE RECORDS SUMMARY | ~2020-01-25 | XMS | Encounter Summary ---
Demographics + + + | Address | [address] | | | [place] [address] | + + + | Home Phone [...] Team Providers + +------+ + | Care Foam Rubber Fabricator Name | Role | Phone | [...] as of this encounter Progress Notes Interface, Winding Machine Operator In - 01/12/2005 8:09 AM PDT [id number] [facility] Date: 02/27/2004 Clinic: [facility] Subjective: The patient underwent gastric bypass surgery in November 2003 under the care of Dr. Chris Padgett here at [facility]. She has been doing well after the [...] been scheduled through the Sleep Clinic in [place]. Medications 1. Ranitidine 150 mg p.o. b.i.d. [...] months. Issac Meeks M.D. MONIQUE / SHARIF [id number] / [id number] / [id number] / cc: Joanna Arshad M.D. [address] [facility] [place] [address] documented i n this encounter Plan of Treatment Not on filedocumented as of this encounter Visit Diagnoses Not on filedocumented in this encounter"
--- OUTSIDE RECORDS SUMMARY | ~2020-01-25 | XMS | Encounter Summary ---
Demographics + + + | Address | [address] | | | [place] [address] | + + + | Home Phone [...] Team Providers + +------+ + | Care Flatbed Truck Driver Name | Role | Phone | + +------+ + | Petrona Thapa | PCP | | | MD | | | + +------+ + Encounter Details +--------+ + + + + | Date | Type | Department | Care Team | Description | +--------+ + + + + | 09/06/ | Abstract | [facility] | Provider, | | | 2018 | | GASTROENTEROLOGY | MD Colin [address] | | | | | [address] [facility] | Sulma Boyd | | | | | [address] | [place] [address] | | | | | [address] | | | | | | [phone] | | | +--------+ + + + [...] | | | | | [place] [address] | | | | | | [phone] | | | | | | | [...]
--- OUTSIDE RECORDS SUMMARY | ~2020-01-25 | XMS | Encounter Summary ---
Demographics + + + | Address | [address] | | | [place] [address] | + + + | Home Phone [...] Team Providers + +------+ + | Care Concaver Name | Role | Phone | + [...] + + | Closed | Specialty | Sleep | Diagnoses | | Jatinder, | | | Services | Medicine | OLIVER | Emmy-Cristin | Ruben Gerber | | | Required | | (obstructive | i, | MD Raji [address] | | | | | sleep | Petrona | Clinton Rodríguez | | | | | apnea) | MD [address] [place] | | | | | | [address] | [place], [place] | | | | | | [place], | [address] Phone: | | | | | | [place] | [phone] | | | | | | [address] | Fax: | | | | | | Phone: | [phone] | | | | | | [phone] | | | | | | | Fax: | | | | | | | [phone] | | +--------+ + + + + + Encounter Details +--------+ + + + + | Date | Type | Department | Care Team | Description | +--------+ + + + + | 11/24/ | Orders Only | [facility] [place] [facility] | Alanis, | OLIVER (obstructive | | 2019 | | MEDICINE [address] | MD Petrona | sleep apnea) | | | | [address] [place], | [address] [facility] | (Primary Dx) | | | | [place] [address] | [place] [address] | | | | | [phone] | [phone] | | | | | | | [...] | | | | | [place] [address] | | | | | | [phone] | | | | | | | | +--------+---------+ + + + + + +--------+ + + | Name | Type | Priori | Associated Diagnoses | Order Schedule | | | | ty | | | + + +--------+ + + | * [facility] [place] [facility] | Outpatient | Routin | OLIVER (obstructive | Ordered: 11/25/2019 | | Sleep Disorder - AMB | Referral | e | sleep apnea) | | | Referral | | | | | + + +--------+ + + documented as of this encounter Visit Diagnoses + + | Diagnosis | + + | OLIVER (obstructive sleep apnea) - Primary Obstructive sleep apnea (adult) (pediatric) | + + documented in this encounter"
--- OUTSIDE RECORDS SUMMARY | ~2020-01-25 | XMS | Encounter Summary ---
Demographics + + + | Address | [address] | | | [place] [address] | + + + | Home Phone [...] Providers + +------+ + | Care Quality Supervisor Name | Role | Phone | + +------+ + | Petrona Thapa | PCP | | | MD | | | + +------+ + Reason for Visit + +--------+ + | Reason | Onset | Comments | | | Date | | + +--------+ + | Results, Imaging | 03/02/ | outside imaging report from [facility] | | | 2018 | | + +--------+ + Encounter Details +--------+ + + + + | Date | Type | Department | Care Team | Description | +--------+ + + + + | 03/02/ | Telephone | [facility] | Alanis, | Results, Imaging | | 2018 | | MEDICINE [address] | MD Petrona | (outside imaging | | | | [place], | [address] [place] | report from St. | | | | [place] [address] | [place] [address] | [facility]) | | | | [phone] | [phone] | | | | | | | [...] - 03/02/2019 5:43 PM PDTReceived US abdominal [facility] results showing fatty liver. Patient notified and [...] | | | | | [place] [address] | | | | | | [phone] | | | | | | | | +--------+---------+ + + + documented as of this encounter Visit Diagnoses Not on filedocumented in this encounter"
--- OUTSIDE RECORDS SUMMARY | ~2020-01-25 | XMS | Encounter Summary ---
Demographics + + + | Address | [address] | | | [place] [address] | + + + | Home Phone [...] Providers + +------+ + | Care Solar Energy Engineer Name | Role | Phone | [...] of this encounter Progress Notes Interface, Nuclear Test Technician In - 01/12/2005 8:09 AM PDT [id number] [facility] Date: 02/27/2004 Clinic: [facility] Subjective: The patient underwent gastric bypass surgery in November 2003 under the care of Dr. Chris Padgett here at [facility]. She has been doing well after [...] been scheduled through the Sleep Clinic in [place]. Medications 1. Ranitidine 150 mg p.o. b.i.d. [...] months. Issac Meeks M.D. MONIQUE / SHARIF [id number] / [id number] / [id number] / cc: Joanna Arshad M.D. [address] [facility] [place] [address] documented i n this encounter Plan of Treatment Not on filedocumented as of this encounter Visit Diagnoses Not on filedocumented in this encounter"
--- OUTSIDE RECORDS SUMMARY | ~2020-01-25 | XMS | Encounter Summary ---
Demographics + + + | Address | [address] | | | [place] [address] | + + + | Home Phone [...] Providers + +------+ + | Care Mobile Solutions Architect Name | Role | Phone | [...] | back pain | [place], | [address] | | | | | with | [place] | Phone: | | | | | bilateral | [address] | [phone] | | | | | sciatica | Phone: | Fax: | | | | | Procedures | [phone] | [phone] | | | | | MRI Lumbar | Fax: | | | | | | Spine wo | [phone] | | | | | | Contrast [...] + + | 05/17/ | Office | [facility] | Emmy-Tacliffordti, | Lumbar | | 2018 | Visit | MEDICINE [address] | MD Petrona | radiculopathy, acute | | | | AVE [place], | [address] [facility] | (Primary Dx); Acute | | | | [place] [address] | [place] [address] | midline low back | | | | [phone] | [phone] | pain with bilateral | | | [...] insufficiency Coccydynia COPD (chronic obstructive pulmonary disease) ([facility]) Depression Diarrhea Dumping syndrome Fall at home Fatigue fracture of vertebra Fibromyalgia Full dentures GERD (gastroesophageal reflux disease) Glaucoma Hyperparathyroidism ([facility]) Hypothyroidism IBS (irritable bowel syndrome) Idiopathic scoliosis Leg edema Low back pain Lumbar postlaminectomy syndrome Lumbar radiculopathy primarily right 01/04/2015 Meniere syndrome Migraine with aura Migraines Muscle cramping Muscle spasm Myalgia Nonalcoholic hepatosteatosis Obesity Opioid dependence ([facility]) Orthostatic hypotension OLIVER (obstructive sleep apnea) Osteoarthritis, generalized Osteopenia Osteoporosis Peripheral neuropathy Rheumatoid arthritis ([facility]) Right arm pain 01/04/2015 RLS (restless legs syndrome) S/P lumbar fusion 01/04/2015 Scoliosis Sleep apnea Spondylosis with myelopathy, lumbar region Stroke ([facility]) Syncope Tremor Type II or unspecified type [...] Procedure: COLONOSCOPY; Surgeon: Luther Brito MD; Location: [facility] MEDICAL PROC[facility]URE [facility] DILATION AND CURETTAGE OF UTERUS ELBOW SURGERY FINGER TRIGGER RELEASE 2002 FINGER TRIGGER RELEASE 2009 GASTRIC BYPASS SURGERY 2004 HYSTERECTOMY 05/14/1980 JOINT REPLACEMENT Bilateral 2007 2007 KNEE ARTHROSCOPY 2004 LAPAROSCOPY 01/27/2015 LAPAROTOMY 2008 ROTATOR CUFF REPAIR 2005 SPINE SURGERY TONSILLECTOMY 1964 UPPER GASTROINTESTINAL ENDOSCOPY N/A 12/18/2017 Procedure: EGD; Surgeon: Luther Brito MD; Location: [facility] MEDICAL PROCEDURE UNIT CURRENT MEDICATIONS Current [...] (See Comments) Confused and questionable for seizures Vxaztlrbrr-Hgqe-Dmoyuvxr Hives and Rash Cephalexin Hives Ciprofloxacin Hives [...] Note: Parts of this documentwere created using [employer] speech recognition software. As a r esult, [...] | | | [facility] [address] | | | | | | [place] [address] | | | | | | [phone] | | | | | | | [...]
--- OUTSIDE RECORDS SUMMARY | ~2020-01-25 | XMS | Encounter Summary ---
[...] + +------+ + | Care Vice President Fixed Income Name | Role | Phone | + [...] as of this encounter Progress Notes Interface, Night Custodian In - 01/21/2006 1:09 AM [facility] [place] [address], [place] [address] or March 15, 2002 Pedrito Gutierrez M.D. [facility] [address] [place] [address] RE: BELINDA MEEHAN MR #: [id number] Dear Dr. Gutierrez: I had the pleasure [...] to set her up to see a client service consultant in Neurology or the Neuromuscular Clinic [...] to contact me. Sincerely, Issac Meeks M.D. dot compliance coordinator Division of Endocrinology, Diabetes, and Clinical Entertainment Agent of Metabolic Disorders Clinic PBBuzz / SHARIF [id number] / [id number] / [id number] / Tdocumented in this encounter Plan of Treatment Not on filedocumented as of this encounter Visit Diagnoses Not on filedocumented in this encounter"
--- OUTSIDE RECORDS SUMMARY | ~2020-01-25 | XMS | Encounter Summary ---
Demographics + + + | Address | [address] | | | [place] [address] | + + + | Home Phone [...] Team Providers + +------+ + | Care Windows Security Analyst Name | Role | Phone [...] as of this encounter Progress Notes Interface, Category Consultant In - 10/03/2006 2:33 AM PDT [id number] GEOVANNI SKELTON J [id number] Clinic Date: 09/14/2006 Clinic: Rheumatology Belinda Meehan [...] every 3 days changed; Trileptal 225 mg; [place] 10/325; and Actonel. Objective: Weight is 214, [...] to this. Caitlin Rivera M.S., F.N.P. / [id number] / [id number] / [id number] / [id number] cc: Pedrito Gutierrez M.D. [address] [facility] [address] [place], [place] [address] [facility] Electronically signed by Caitlin Rivera 10-02-2006 09:24:29 AM documented in this encounter Plan of Treatment Not on filedocumented as of this encounter Visit Diagnoses Not on filedocumented in this encounter"
--- OUTSIDE RECORDS SUMMARY | ~2020-01-25 | XMS | Encounter Summary ---
Demographics + + + | Address | [address] | | | [place] [address] | + + + | Home Phone [...] | Organization | [facility] | | | and [...] Team Providers + +------+ + | Care Imaging System Administrator Name | Role | Phone | [...] + | 03/25/ | Refill | [facility] | Alanis, | Medication Refill | | 2016 | | MEDICINE [address] | MD Petrona | | | | | [place], | [address] [facility] | | | | | [place] [address] | [place] [address] | | | | | [phone] | [phone] | | | | | | | [...] | | | | | [place] [address] | | | | | | [phone] | | | | | | | | +--------+---------+ + + + documented as of this encounter Visit Diagnoses Not on filedocumented in this encounter"
--- OUTSIDE RECORDS SUMMARY | ~2020-01-25 | XMS | Encounter Summary ---
Demographics + + + | Address | [address] | | | [place] [address] | + + + | Home Phone [...] Providers + +------+ + | Care Vegetable Harvest Worker Name | Role | Phone | [...] as of this encounter Progress Notes Interface, Emergency Medical Services Coordinator In - 01/12/2005 10:09 AM PDT [id number] [facility] Date: 12/11/2004 Clinic: Telephone [...] Ms. Meehan' home address at [facility] [address] [address]. The address was confirmed with Ms. Meehan prior to sending. Ms. Meehan has a followup appointment in Dr. Padgett's clinic on December 19, 2004. Nathalia Richard R.N., B.S.N. Liliya Kirkpatrick. / [id number] / [id number] / [id number] / Electronically signed by Nuris Chapman 12-20-2004 05:05:06 PM docushazia i n this encounter Plan of Treatment Not on filedocumented as of this encounter Visit Diagnoses Not on filedocumented in this encounter"
--- OUTSIDE RECORDS SUMMARY | ~2020-01-25 | XMS | Encounter Summary ---
Demographics + + + | Address | [address] | | | [place] [address] | + + + | Home Phone [...] Team Providers + +------+ + | Care Turbinated Bone Grinder Name | Role | Phone | [...] + + | 02/01/ | Telephone | [facility] | Alanis, | Other (B12 shot) | | 2017 | | MEDICINE [address] | MD Petrona | | | | | [place], | [address] [facility] | | | | | [place] [address] | [place] [address] | | | | | [phone] | [phone] | | | | | | | [...] | | | | | [place] [address] | | | | | | [phone] | | | | | | | | +--------+---------+ + + + documented as of this encounter Visit Diagnoses Not on filedocumented in this encounter"
--- OUTSIDE RECORDS SUMMARY | ~2020-01-25 | XMS | Encounter Summary ---
Demographics + + + | Address | [address] | | | [place] [address] | + + + | Home Phone [...] Providers + +------+ + | Care Gift Officer Name | Role | Phone | [...] [address] [place]anie | | | | | [facility] | [place], [place] | | | | | [address] | [address] | | | | | [address] | [phone] | | | | | [facility] | | | | | | Physician's | | | | | | Pavilion [place], | | | | | | [place] [address] | | | | | | [phone] | | | +--------+--------+ + + + [...]
--- OUTSIDE RECORDS SUMMARY | ~2020-01-25 | XMS | Encounter Summary ---
Demographics + + + | Address | [address] | | | [place] [address] | + + + | Home Phone [...] Providers + +------+ + | Care Corporate Affairs Manager Name | Role | Phone | [...] + + | 11/03/ | Refill | [facility] | Chris Padgett, | Refill Request | | 2007 | | [place] [address] | [address] | (Sucralfate) | | | | Bethanie Mailcode: CH4S | [facility] | | | | | [facility] | [place], [place] | | | | | and Healing, | [address] | | | | | [facility] | [phone] | | | | | Floor [place], [place] | | | | | | [address] | | | | | | [phone] | | | +--------+--------+ + + + [...]
--- OUTSIDE RECORDS SUMMARY | ~2020-01-25 | XMS | Encounter Summary ---
Demographics + + + | Address | [address] | | | [place] [address] | + + + | Home Phone [...] Providers + +------+ + | Care Studio Assistant Name | Role | Phone | [...] + + | 06/24/ | Telephone | [facility] | Alanis, | Medication Orders | | 2018 | | MEDICINE [address] | MD Petrona | | | | | [place], | [address] | | | | | [place] [address] | [place] [address] | | | | | [phone] | [phone] | | | | | | | [...] a prescription for 90 day supply to [facility] [place]. Please advise P M PSTTelephone Encounter - [...] Astrid Grant - 06/24/2018 8:4 2 AM PSTBrenevin called regarding her Zolfran Rx. She stated she only received a prescrition f or 30 days not 90 days. She uses [facility] in [place]. She can be reached at [phone]. 8 :44 AM PSTdocumented in this encounter [...] | | | | | [place] [address] | | | | | | [phone] | | | | | | | | +--------+---------+ + + + documented as of this encounter Visit Diagnoses Not on filedocumented in this encounter"
--- OUTSIDE RECORDS SUMMARY | ~2020-01-25 | XMS | Encounter Summary ---
Demographics + + + | Address | [address] | | | [place] [address] | + + + | Home Phone [...] Providers + +------+ + | Care Hr Receptionist Name | Role | Phone | + +------+ + | Maria Esther Cintron MD | PCP | | + +------+ + Encounter Details +--------+ + + + + | Date | Type | Department | Care Team | Description | +--------+ + + + + | 08/26/ | Telephone | [facility] | Chris Padgett, | | | 2010 | | [place] [address] | [address] [facility] | | | | | Beth[place] Mailcode: CH4S | [address] | | | | | [facility] | [place], [place] | | | | | and Healing, | [address] | | | | | Building , 6th | [phone] | | | | | Floor [place], [place] | | | | | | [address] | | | | | | [phone] | | | +--------+ + + + [...]
--- OUTSIDE RECORDS SUMMARY | ~2020-01-25 | XMS | Encounter Summary ---
[...] Providers + +------+ + | Care Security Associate Name | Role | Phone | [...] | | | [facility] | [place], [place] | Episode, Moderate | | | | and Healing, | [address] | (HCC); Chronic | | | | Building | [phone] | Abdominal Pain; | | | | Floor [place], [place] | | Herniated Lumbar | | | | [address] | | Intervertebral Disc | | | | [phone] | | L4-5; DJD | | | [...] progress but still neglects self-care occasionally. Diagnosis: [place] I: 1. (296.32) Major depressive disorder, recurrent, moderate. 2. (309.24) Adjustment disorder with anxiety. 3. (307.89) Chronic pain disorder associated with both psychological factors and a gene ral medical condition. [place]sham II: Deferred [place]sham III: abdominal pain, migraine headache, low back pain. Topsham IV: low finances Topsham V: GAF 50 Plan: Return in 2 weeks. Check preparation for move and for niece's visit, Curves gym, pacing, r elaxation, activity, distraction. Check managing Pain... book. Discuss need for further vi sits. Total time spent with patient was approximately 45 minutes. [facility]Z [facility] [address] [facility] [place] [address] documented in this encount er Plan of [...] | | | | | ([facility]) Chronic | | | | [...]
--- OUTSIDE RECORDS SUMMARY | ~2020-01-25 | XMS | Encounter Summary ---
Demographics + + + | Address | [address] | | | [place] [address] | + + + | Home Phone [...] Providers + +------+ + | Care Box Finisher Name | Role | Phone [...] | | | [facility] | [place], [place] | | | | | [address] | [address] | | | | | [address] | [phone] | | | | | [facility] | | | | | | Physician's | | | | | | Pavilion [place], | | | | | | [place] [address] | | | | | | [phone] | | | +--------+ + + + [...]
--- OUTSIDE RECORDS SUMMARY | ~2020-01-25 | XMS | Encounter Summary ---
Demographics + + + | Address | [address] | | | [place] [address] | + + + | Home Phone [...] Providers + +------+ + | Care Supervisor Tumbling And Rolling Name | Role | Phone | + [...] as of this encounter Progress Notes Interface, Quality Assurance Representative In - 01/12/2005 8:09 AM PDTClinic Date: [...] months. Chris Padgett M.D. ROSA / SHARIF [id number] / [id number] / [id number] / Tdocumented in this encounter Plan of Treatment Not on filedocumented as of this encounter Visit Diagnoses Not on filedocumented in this encounter"
--- OUTSIDE RECORDS SUMMARY | ~2020-01-25 | XMS | Encounter Summary ---
Demographics + + + | Address | [address] | | | [place] [address] | + + + | Home Phone [...] Providers + +------+ + | Care Plate Glass Grinder Name | Role | Phone | [...] CH4S | | | | | | [facility] | | | | | | and Healing, | | | | | | Building 1, 6th | | | | | | Floor [place], [place] | | | | | | [address] | | | | | | [phone] | | | +--------+ + + + [...]
--- OUTSIDE RECORDS SUMMARY | ~2020-01-25 | XMS | Encounter Summary ---
[...] Providers + +------+ + | Care Automobile Service Station Mechanic Name | Role | Phone | [...] | | | | | Procedures | [place], [place] | [address] | | | | | CONSULT TO | [address] | [address] | | | | | SURGERY - | | [address] [place], | | | | | GENERAL | | [place] | | | | | | | [address] | | | | | | | Phone: | | | | | | | [phone] | | | | | | | Fax: | | | | | | | [phone] | +--------+--------+ + + + + Encounter Details +--------+ + + + + | Date | Type | Department | Care Team | Description | +--------+ + + + + | 08/31/ | Truck Safety Inspector | [facility] | Nuris Cardenas ANP | Hemorrhoid (Primary | | 2008 | | Center [address] | | Dx) | | | | [address] | | | | | | Mailcode: [id number] | | | | | | [facility] | | | | | | [place], [place] | | | | | | [address] | | | | | | [phone] | | | +--------+ + + + [...]
--- OUTSIDE RECORDS SUMMARY | ~2020-01-25 | XMS | Encounter Summary ---
Demographics + + + | Address | [address] | | | [place] [address] | + + + | Home Phone [...] Providers + +------+ + | Care Scroll Saw Operator Name | Role | Phone [...] Densitometry | | MD Beto | Density [facility] | | | | | Osteoporosis | [address] | [address] | | | | | Procedures | Ave | [address] | | | | | CONSULT TO | [place], [place] | Rd Mailcode: | | | | | BONE | [address] | [address] | | | | | DENSITOMETRY | Phone: | [address] | | | | | | [phone] | [place], [place] | | | | | | Fax: | [address] | | | | | | [phone] | Phone: | | | | | | | [phone] | | | | | | | Fax: | | | | | | | [phone] | +--------+--------+ + + + + Reason [...] Sara Kovacs | | | | | [facility] | [place], [place] | | | | | [address] | [address] | | | | | [address] | [phone] | | | | | [facility]ilion | | | | | | Physician's | | | | | | Pavilion [place], | | | | | | [place] [address] | | | | | | [phone] | | | +--------+ + + + [...]
--- OUTSIDE RECORDS SUMMARY | ~2020-01-25 | XMS | Encounter Summary ---
Demographics + + + | Address | [address] | | | [place] [address] | + + + | Home Phone [...] Team Providers + +------+ + | Care Granite Polisher Apprentice Name | Role | Phone | [...]
--- OUTSIDE RECORDS SUMMARY | ~2020-01-25 | XMS | Encounter Summary ---
Demographics + + + | Address | [address] | | | [place] [address] | + + + | Home Phone [...] Team Providers + +------+ + | Care Repair Service Dispatcher Name | Role | Phone | [...] | | | | Clinical Nutrition | [place], [place] | | | | | [address] | [address] | | | | | Loop Mailcode: OPC5 | [phone] | | | | | Outpatient Clinic | | | | | | [facility] | | | | | | [place] [address] | | | | | | [phone] | | | +--------+ + + + [...] + + + + | [facility] | [address] | [place] [address] | | | LABORATORY | | | [...] + + + + | [facility] | [address] | [place] [address] | | | LABORATORY | | | [...] + + | [facility] DEPARTMENT OF | [address] | [place] [address] | | | PATHOLOGY | [address] | | | + + + + + | [facility] DEPARTMENT OF | [address] | [place] [address] | | | PATHOLOGY | [address] [...] | + + + + + | [facility] DEPARTMENT OF | [address] | [place] [address] | | | PATHOLOGY | [address] | | | + + + + + | [facility] DEPARTMENT OF | [address] | [place] [address] | | | PATHOLOGY | [address] | | | + + + + + documented in this encounter Visit Diagnoses Not on filedocumented in this encounter"
--- OUTSIDE RECORDS SUMMARY | ~2020-01-25 | XMS | Encounter Summary ---
Demographics + + + | Address | [address] | | | [place] [address] | + + + | Home Phone [...] Providers + +------+ + | Care Airplane First Officer Name | Role | Phone | [...] [address] | | | | | | [place], [place] | | | | | | [address] | | | | | | [phone] | | | +--------+ + + + [...]
--- OUTSIDE RECORDS SUMMARY | ~2020-01-25 | XMS | Encounter Summary ---
Demographics + + + | Address | [address] | | | [place] [address] | + + + | Home Phone [...] Team Providers + +------+ + | Care Marklogic Developer Name | Role | Phone | [...] | 06/25/ | Refill | [facility] | Alanis, | Medication Refill | | 2018 | | MEDICINE [address] | MD Petrona | | | | | [place], | [address] | | | | | [place] [address] | [place] [address] | | | | | [phone] | [phone] | | | | | | | [...] | | | | | [place] [address] | | | | | | [phone] | | | | | | | | +--------+---------+ + + + documented as of this encounter Visit Diagnoses + + | Diagnosis | + + | Nausea - Primary Nausea alone | + + documented in this encounter"
--- OUTSIDE RECORDS SUMMARY | ~2020-01-25 | XMS | Encounter Summary ---
Demographics + + + | Address | [address] | | | [place] [address] | + + + | Home Phone [...] Team Providers + +------+ + | Care Sandwich Peddler Name | Role | Phone | + [...]
--- OUTSIDE RECORDS SUMMARY | ~2020-01-25 | XMS | Encounter Summary ---
[...] Providers + +------+ + | Care Analytics Intern Name | Role | Phone | [...] | | | | Clinical Nutrition | [place], [place] | | | | | [address] | [address] | | | | | Loop Mailcode: OPC5 | [phone] | | | | | Outpatient Clinic | | | | | | [facility] | | | | | | [place] [address] | | | | | | [phone] | | | +--------+ + + + [...] | + + + + + | [facility] | [address] | [place] [address] | | | LABORATORY | | | [...] | pg/mL | | | | | [facility] | | | | | | Laboratory. | | | | + + + + + + + + | Specimen | + + | | + + + + + + + | Performing | Address | City/State/Zipcode | Phone Number | | Organization | | | | + + + + + | [facility] | [address] | [place] [address] | | | LABORATORY | | | [...] + + | [facility] DEPARTMENT OF | [address] | [place] [address] | | | PATHOLOGY | [address] | | | + + + + + | [facility] DEPARTMENT OF | [address] | [facility] [place] [address] | | | PATHOLOGY | [address] [...] + + + | [facility] DEPARTMENT OF | [address] | [place] [address] | | | PATHOLOGY | [address] | | | + + + + + | [facility] DEPARTMENT OF | [address] | [place] [address] | | | PATHOLOGY | [address] | | | + + + + + documented in this encounter Visit Diagnoses Not on filedocumented in this encounter"
--- OUTSIDE RECORDS SUMMARY | ~2020-01-25 | XMS | Encounter Summary ---
Demographics + + + | Address | [address] | | | [place] [address] | + + + | Home Phone [...] Providers + +------+ + | Care Voice Network Administrator Name | Role | Phone | [...] as of this encounter Progress Notes Interface, Forms Examiner In - 08/19/2005 2:05 AM PST [id number] GEOVANNI [facility] Date: 07/29/2005 Clinic: Hematology [...] pursue aggressive iron supplementation. Lukasz Sellers M.D. campus recruiting intern [employer] / SHARIF [id number] / [id number] / [id number] / [id number] cc: Pedrito Gutierrez M.D. [address] [place] [address] Electronically signed by Lukasz Sellers 08-18-2005 01:28:12 PM documented i n this encounter Plan of Treatment Not on filedocumented as of this encounter Visit Diagnoses Not on filedocumented in this encounter"
--- OUTSIDE RECORDS SUMMARY | ~2020-01-25 | XMS | Encounter Summary ---
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 11/11/2006 Beilnda Meehan is a 46 y.o. female [facility] Return Visit Chief Complaint: [...] weeks. 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 Expectations for this visit include [...] hypothyroidism Bone spur on right heel - hand ornament maker last week, insurance [place] for [employer] Current [...] Surgical History Procedure Date Gastric bypass CYudy Padgett wt 278 01/18 Paniculectomy Hx cholecystectomy [...] bid 2. Fentanyl patch 25mcg/hr Q72hr 3. Ranger 10/325 NTE 4 per day 4 Continue [...] weeks or sooner if needed. DELFINA MOLINA [facility] Mail code CH [address] [facility] [address] [facility] [address] Tasha Can - 11/11/2006 9:29 AM PDTCMA [...]
--- OUTSIDE RECORDS SUMMARY | ~2020-01-25 | XMS | Encounter Summary ---
Demographics + + + | Address | [address] | | | [place] [address] | + + + | Home Phone [...] Team Providers + +------+ + | Care Proposal Rep Name | Role | Phone | [...] + | 03/12/ | Refill | [facility] | Alanis, | Medication Refill | | 2018 | | MEDICINE [address] | MD Petrona | | | | | [place], | [address] [facility] | | | | | [place] [address] | [place] [address] | | | | | [phone] | [phone] | | | | | | | [...] | | | | | [place] [address] | | | | | | [phone] | | | | | | | | +--------+---------+ + + + documented as of this encounter Visit Diagnoses Not on filedocumented in this encounter"
--- OUTSIDE RECORDS SUMMARY | ~2020-01-25 | XMS | Encounter Summary ---
Demographics + + + | Address | [address] | | | [place] [address] [...] Phone | + + +---------+ + | Dariana Caregiver | ECON | Unknown | | | Rudy | | | | + + +---------+ + | Sree Wells | ECON | Unknown | | + + +---------+ + | Marco Antonio Wells | ECON | Unknown | | + + +---------+ + Care Team Providers + +------+ + | Care Autopsy Assistant Name | Role | Phone | [...] | | | | [place], | [address] | | | | | | [place] | Phone: | | | | | | [address] | [phone] | | | | | | Phone: | Fax: | | | | | | [phone] | [phone] | | | | | | Fax: | | | | | | | [phone] | | +--------+ + + + + + Encounter Details +--------+---------+ + + + | Date | Type | Department | Care Team | Description | +--------+---------+ + + + | 11/16/ | Office | [facility] | Alanis, | Diarrhea, | | 2017 | Visit | GASTROENTEROLOGY | MD Petrona | unspecified type | | | | [address] [place] | [address] [place] | (Primary Dx); | | | | [address] [place], [place] | [place] [address] | Chronic diarrhea; | | | | [address] | [phone] | S/P gastric bypass; | | | | [phone] | | Gastroesophageal | | | | | Luther Brito MD | reflux disease, | | | | | [address] | esophagitis presence | | | | | [place], [place] | not specified; | | | | | [address] | History of gastric | | | | | [phone] | ulcer; Abdominal | | | | | | pain, unspecified | | | | | | abdominal location; | | | | | | Narcotic dependence | | | | | | ([facility]); Obesity (BMI | | | | | [...] ordered and patient will complet e at [facility] in [place], orders were faxed; scheduled for egd/colon prop on 12/[address] Brito; advised to hold PPI day of procedure, she agreed. 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 documented in this encounter H&P Luther Renee [...] (See Comments) Confused and questionable for seizures Vpqlzihcst-Uinq-Ohffwure Not Noted Cephalexin Hives Duloxetine Not Noted Migraines and nausea Ketorolac Hives Morphine Swelling Ropinirole Hcl Hives Tramadol Hcl Nausea Only Ucjsmqtnkh-Fzdq-Bwfabnnv Hives,Rash Ciprofloxacin Hives,Rash Clarithromycin Hives,Rash Clindamycin Hcl [...] | | | | | | [address] [place] [address] [address] | | | | | | [place] [address] | | | | | | [phone] | | | | | | | [...]
--- OUTSIDE RECORDS SUMMARY | ~2020-01-25 | XMS | Encounter Summary ---
Demographics + + + | Address | [address] | | | [place] [address] | + + + | Home Phone [...] + +------+ + | Care Sales And Marketing Engineer Name | Role | Phone | [...] | | | | | Procedures | [facility] [place] | [address] | | | | | CONSULT TO | [address] | for Health | | | | | BONE | Phone: | and Healing, | | | | | DENSITOMETRY | [phone] | [address] | | | | | | Fax: | [place], [place] | | | | | | [phone] | [address] | | | | | | | Phone: | | | | | | | [phone] | | | | | | | Fax: | | | | | | | [phone] | +--------+ + + + + + [...] | | | Center for Health | [place], [place] | [address]pass for Obesity | | | | and Healing, | [address] | | | | | [facility] | [phone] | | | | | Floor [place], [place] | | | | | | [address] | | | | | | [phone] | | | +--------+---------+ + + + [...]
--- OUTSIDE RECORDS SUMMARY | ~2020-01-25 | XMS | Encounter Summary ---
Demographics + + + | Address | [address] | | | [place] [address] | + + + | Home Phone [...] Providers + +------+ + | Care Shell Grader Name | Role | Phone | [...] as of this encounter Discharge Summaries Interface, Channeler In - 01/12/2005 6:32 AM PDTAdmission Date: [...] M.D., D.M.D. Chris Padgett M.D. CLAIRE/carolynn A [id number] cc: documente d in this encounter Plan of Treatment Not on filedocumented as of this encounter Visit Diagnoses Not on filedocumented in this encounter"
--- OUTSIDE RECORDS SUMMARY | ~2020-01-25 | XMS | Encounter Summary ---
Demographics + + + | Address | [address] | | | [place] [address] | + + + | Home Phone [...] Providers + +------+ + | Care Senior Back End Java Developer Name | Role | Phone [...] | | | | [id number] Physician's | [place], [place] | | | | | [address] | [address] | | | | | [place], [place] | [phone] | | | | | [address] | | | | | | [phone] | | | +--------+ + + + [...] + + + | [facility] | [address] | [place] [address] | | | LABORATORY | | | [...] + | [facility] DEPARTMENT OF | [address] | [place] [address] | | | PATHOLOGY | [address] | | | + + + + + | [facility] | [address] | [place] [address] | | | PATHOLOGY | [address] | | | + + + + + documented in this encounter Visit Diagnoses Not on filedocumented in this encounter"
--- OUTSIDE RECORDS SUMMARY | ~2020-01-25 | XMS | Encounter Summary ---
Demographics + + + | Address | [address] | | | [place] [address] | + + + | Home Phone [...] Providers + +------+ + | Care Gas Distribution Plant Operator Name | Role | Phone [...] | | Center at [facility] [address] | MARKETING ENGINEER [address] | | | | | [address] [place] | [facility] [address] | | | | | for Health and | [place], [place] | | | | | [place] [address] | [address] | | | | | [place], [place] | [phone] | | | | | [address] | | | | | | [phone] | | | +--------+ + + + [...]
--- OUTSIDE RECORDS SUMMARY | ~2020-01-25 | XMS | Encounter Summary ---
Demographics + + + | Address | [address] | | | [place] [address] | + + + | Home Phone [...] Providers + +------+ + | Care Commercial Collections Specialist Name | Role | Phone [...] + | 05/30/ | Refill | [facility] | Alanis, | Medication Refill | | 2016 | | MEDICINE [address] | MD Petrona | | | | | [place], | [address] [facility] | | | | | [place] [address] | [place] [address] | | | | | [phone] | [phone] | | | | | | | [...] | | | | | [place] [address] | | | | | | [phone] | | | | | | | | +--------+---------+ + + + documented as of this encounter Visit Diagnoses Not on filedocumented in this encounter"
--- OUTSIDE RECORDS SUMMARY | ~2020-01-25 | XMS | Encounter Summary ---
Demographics + + + | Address | [address] | | | [place] [address] | + + + | Home Phone [...] Providers + +------+ + | Care Computer Security Coordinator Name | Role | Phone | [...] as of this encounter Progress Notes Interface, Financial Services Representative In - 01/12/2006 1:16 AM PDTCLINIC DATE: 05/24/2002 NEUROMUSCULAR CLINIC PRIMARE CARE PROVIDER: Pedrito Gutierrez M.D., [place], [place]. REFERRING PROVIDER : Issac Meeks M.D., [facility] Endocrinology. REASON FOR CONSULTATION: Dr. Meeks recently [...] has some mild associated weakness in her shop lead. She was told she had carpal tunnel [...] use drugs. 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 She is applying for disability compensation. She lives in [facility] and is currently undergoing a divorce. REVIEW [...] position sense throughout. Coordination: Fine finger movements, hvkfkh-ws-azsr, rapid alternating movements, and oqye-yh-vdaw maneuvers are intact though ohsnzn-ei-qszt is limited by poor depth perception due [...] Pete M.D. Neurology/Neuromuscular Fellow [employer] / HS [id number] / [id number] / [id number] / cc: Issac Meeks M.D. [facility] Endocrinology Pedrito Gtuierrez M.D. [address] [place] [id number] signed by Interface, Financial Services Representative In at 01/12/2006 1:1 6 AM PDTdocumented in this encounter Plan of Treatment Not on filedocumented as of this encounter Visit Diagnoses Not on filedocumented in this encounter
--- OUTSIDE RECORDS SUMMARY | ~2020-01-25 | XMS | Encounter Summary ---
Demographics + + + | Address | [address] | | | [place] [address] | + + + | Home Phone [...] Providers + +------+ + | Care Rn Pain Management Name | Role | Phone | [...] | | | | Clinical Nutrition | [place], [place] | | | | | [address] | [address] | | | | | Loop Mailcode: OPC5 | [phone] | | | | | Outpatient Clinic | | | | | | [facility] | | | | | | [place] [address] | | | | | | [phone] | | | +--------+ + + + [...] [facility] | [address] | [place], [place] | | | UN[facility] P[facility] | | [address] | | + + + + + [...] + + + + | [facility] | [address] | [place] [address] | | | LABORATORY | | | [...] DEPARTMENT OF | [address] | [place] [address] | | | PATHOLOGY | [address] | | | + + + + + | [facility] DEPARTMENT OF | [address] | [place] [address] | | | PATHOLOGY | [address] | | | + + + + + LIPASE (01/11/2002 3:50 PM PDT) + +--------+ + + + | Component | Value | Ref Range | Performed | Pathologist | | | | | At | Signature | + +--------+ + + + | LIPASE | 21 (L) | 22 - 51 U/L | [facility] | | | (LAB) | | [...] | [facility] | [address] | [place] [address] | | | PATHOLOGY | [address] | | | + + + + + | [facility] | [facility] [address] | [place] [address] | | | PATHOLOGY | [address] [...] OF | [address] | [place] [address] | | | PATHOLOGY | [address] | | | + + + + + | [facility] DEPARTMENT | [address] | [place] [address] | | | PATHOLOGY | [address] [...] [facility] | [address] | [place] [address] | | | PATHOLOGY | [address] | | | + + + + + | [facility] | [facility] | [place] [address] | | | PATHOLOGY | [address] | | | + + + + + documented in this encounter Visit Diagnoses Not on filedocumented in this encounter"
--- OUTSIDE RECORDS SUMMARY | ~2020-01-25 | XMS | Encounter Summary ---
Demographics + + + | Address | [address] | | | [place] [address] | + + + | Home Phone [...] Providers + +------+ + | Care Flow Worker Name | Role | Phone | [...] | | | | | | | [place], [place] | | | | | | | [address] | | | | | | | Phone: | | | | | | | [phone] | | | | | | | Fax: | | | | | | | [phone] | +--------+--------+ + + + + Encounter Details +--------+---------+ + + + | Date | Type | Department | Care Team | Description | +--------+---------+ + + + | 01/05/ | Office | [facility] | Eliezer Ruano, | Follow-Up | | 2007 | Visit | Center [address] | [address] [facility] | Examination | | | | Avejnnifer Mailcode: CH4S | [address] | Following Surgery | | | | [facility] | [place], [place] | (Primary Dx) | | | | and Healing, | [address] | | | | | Building | [phone] | | | | | Floor [place], [place] | | | | | | [address] | | | | | | [phone] | | | +--------+---------+ + + + [...] plan of care. ELIEZER RUANO MD [facility] [address] [place] [address] And [facility], [address] [place] [address] Tejas Trevino - 01/05 1:54 PM PDTS: Pt is here one week postop lysis of adhesions. She is doing well. She i s still having some pain. PE: Midline incision closed with reshma. Mcrae Helena removed. There was a small opening of [...]
--- OUTSIDE RECORDS SUMMARY | ~2020-01-25 | XMS | Encounter Summary ---
Demographics + + + | Address | [address] | | | [place] [address] | + + + | Home Phone [...] Providers + +------+ + | Care Adjunct Phlebotomy Instructor Name | Role | Phone | [...] + | 06/28/ | Office | [facility] Comprehensive | Delfina Molina, | LBP (Low Back Pain); | | 2007 | Visit | Pain Center at | ANP | Encounter for | | | | [facility] | | Long-Term (Current) | | | | [address] | | Use of Opioids; | | | | [facility] | | Arthroplasty of the | | | | and Healing, | | Left Knee; Bilateral | | | | Building | | Knee Pain; DJD | | | | Floor [place], [place] | | (Degenerative Joint | | | | [address] | | Disease) of Knee; | | | | [phone] | | Spondylosis with | | | [...] as working with Madeleine evans or in [facility]. Epidural steroid injections are awhile call to schedule with Dr. Kylah SHEEHAN. documented in this encounter Progress Notes Delfina Molina - 06/28/2007 8:56 AM PSTFormatting of this note might be different from th e original. 06/28/2007 Belinda Meehan is a 47 [address] [facility] Comprehensive Pain Center Return [...] yes" , she reports going [facility] of last month [ see's every 6 months sinc e optic nerve hemorrhagia] "resently starting to [...] be in bed so long. Son primary home care liaison. Current outpatient medications Medication Sig Dispense Refill [...] Time Resulting Agency 05/25/2007 4:[address] [facility] DEPARTMENT OF RADIOLOGY Component Results [...] Episode, Moderate 729.1 Fibromyalgia syndrome 729.1 Belinda Meeahn is a pleasant 47yo obese female with [...] up visits today 5. Schedule physical therapy [facility] Nathalia Arora once she has finished with her knee rehabi litaion [ estimated in two weeks]. 6. Epidural steroid injections are an option of care for her lumbar radicular pain. 7. Schedule follow up in 4-6 weeks or sooner if needed - The pateint was asked to call the clinic with any concerns or questions. DELFINA MOLINA [facility] Mail code CH 4P [facility] [address] system [address] Ailyn Bello 06/28/19 08 8:38 AM [...]
--- OUTSIDE RECORDS SUMMARY | ~2020-01-25 | XMS | Encounter Summary ---
Demographics + + + | Address | [address] | | | [place] [address] | + + + | Home Phone [...] | [facility] [place] | | | and [place] | + [...] Team Providers + +------+ + | Care Retort Kiln Burner Name | Role | Phone | [...] + + | 11/17/ | Telephone | [facility] | Alanis, | ER Follow-up | | 2019 | | MEDICINE [address] | MD Petrona | | | | | [place], | [address] [facility] | | | | | [place] [address] | [place] [address] | | | | | [phone] | [phone] | | | | | | | [...] the name. Please call slick jacobsen at [phone]. docum ented in this encounter Plan of [...] | | | | | [place] [address] | | | | | | [phone] | | | | | | | | +--------+---------+ + + + documented as of this encounter Visit Diagnoses Not on filedocumented in this encounter"
--- OUTSIDE RECORDS SUMMARY | ~2020-01-25 | XMS | Encounter Summary ---
Demographics + + + | Address | [address] | | | [place] [address] | + + + | Home Phone [...] Phone | + + +---------+ + | Adriaan Caregiver | ECON | Unknown | | | Rudy | | | | + + +---------+ + | Sree Wells | ECON | Unknown | | + + +---------+ + | Marco Antonio Wells | ECON | Unknown | | + + +---------+ + Care Team Providers + +------+ + | Care Development Editor Name | Role | Phone | + +------+ + | Petrona Thapa | PCP | | | MD | | | + +------+ + Encounter Details +--------+---------+ + + + | Date | Type | Department | Care Team | Description | +--------+---------+ + + + | 12/20/ | Office | [facility] | Elisabet Munson MS | Sensorineural | | 2019 | Visit | AUDIOLOGY AND | CCC-A [address] | hearing loss (SNHL) | | | | HEARING AID SERVICES | [address] | of both ears | | | | [address] | [place] [address] | (Primary Dx); | | | | [address] | [phone] | Dizziness and | | | | [place] [address] | | giddiness | | | | [phone] | | | +--------+---------+ + + + [...] as of this encounter Progress Notes Ceasar Munsonrafa, CCC-A - 12/20/2018 9:30 AM PDTReferring Provider: [...] [place] | | | | | | [place] [address] | | | | | | [phone] | | | | | | | [...]
--- OUTSIDE RECORDS SUMMARY | ~2020-01-25 | XMS | Encounter Summary ---
Demographics + + + | Address | [address] | | | [place] [address] | + + + | Home Phone [...] Providers + +------+ + | Care Pattern Generator Operator Name | Role | Phone | [...] | | | | [id number] Physician's | [place], [place] | | | | | [address] | [address] | | | | | [place], [place] | [phone] | | | | | [address] | | | | | | [phone] | | | +--------+ + + + [...] DEPARTMENT OF | [address] | [place] [address] | | | PATHOLOGY | [address] | | | + + + + + | [facility] DEPARTMENT OF | [address] | [place] [address] | | | PATHOLOGY | [address] [...] MEDICAL CENTER | [address] | [place] [address] | | | PATHOLOGY | [address] | | | + + + + + | [facility] | [address] | [place] [address] | | | PATHOLOGY | [address] | | | + + + + + documented in this encounter Visit Diagnoses Not on filedocumented in this encounter"
--- OUTSIDE RECORDS SUMMARY | ~2020-01-25 | XMS | Encounter Summary ---
Demographics + + + | Address | [address] | | | [place] [address] | + + + | Home Phone [...] Providers + +------+ + | Care Hand Shaper Name | Role | Phone | [...] | | | OFFICE VISIT | | [address] Phone: | | | | | REGULAR | | [phone] | | | | | | | Fax: | | | | | | | [phone] | +--------+--------+ + + + + Encounter Details +--------+---------+ + + + | Date | Type | Department | Care Team | Description | +--------+---------+ + + + | 12/30/ | Office | [facility] | Elisabet Munson MS | Subjective tinnitus | | 2018 | Visit | AUDIOLOGY AND | CCC-A [address] | of left ear (Primary | | | | HEARING AID SERVICES | [address] | Dx) | | | | [address] | [place] [address] | | | | | [address] | [phone] | | | | | [place] [address] | | | | | | [phone] | | | +--------+---------+ + + + [...] documented as of this encounter Progress Notes DarioElisabet ramires, CCC-A - 12/30/2017 1:30 PM PDTReferring Provider: [...] | | | | | | [place] [address] | | | | | | [phone] | | | | | | | [...]
--- OUTSIDE RECORDS SUMMARY | ~2020-01-25 | XMS | Encounter Summary ---
Demographics + + + | Address | [address] | | | [place] [address] | + + + | Home Phone [...] Team Providers + +------+ + | Care Obiee Architect Name | Role | Phone | [...] + | 01/20/ | Refill | [facility] | Alanis, | Medication Refill | | 2017 | | MEDICINE [address] | MD Petrona | | | | | [place], | [address] [facility] | | | | | [place] [address] | [place] [address] | | | | | [phone] | | | | | | | [...] Petrona | | | | | | [facility] [address] | | | | | | [place] [address] | | | | | | [phone] | | | | | | | | +--------+---------+ + + + documented as of this encounter Visit Diagnoses Not on filedocumented in this encounter"
--- OUTSIDE RECORDS SUMMARY | ~2020-01-25 | XMS | Encounter Summary ---
Demographics + + + | Address | [address] | | | [place] [address] | + + + | Home Phone [...] Team Providers + +------+ + | Care Mononitrotoluene Operator Name | Role | Phone | [...] | | | [facility] | [place], [place] | | | | | [address] | [address] | | | | | [address] | [phone] | | | | | Physician's | | | | | | Pavilion, [facility] floor | | | | | | [place], [place] | | | | | | [address] | | | | | | [phone] | | | +--------+ + + + [...] by | | | | | | [facility] | | | | | | Regional Laboratory. | | | | + + + + + + + + | Specimen | + + | | + + + + + + + | Performing | Address | City/State/Zipcode | Phone Number | | Organization | | | | + + + + + | [facility] | [address] | [place] [address] | | | LABORATORY | | | [...] | pg/mL | | | | | [facility] | | | | | | Laboratory. | | | | + + + + + + + + | Specimen | + + | | + + + + + + + | Performing | Address | City/State/Zipcode | Phone Number | | Organization | | | | + + + + + | [facility] | [address] | [place] [address] | | | LABORATORY | | | [...] | + + + + + | [facility] | [address] | [place] [address] | | | PATHOLOGY | [address] | | | + + + + + | [facility] DEPARTMENT OF | [address] | [place] [address] | | | PATHOLOGY | [address] | | | + + + + + documented in this encounter Visit Diagnoses Not on filedocumented in this encounter"
--- OUTSIDE RECORDS SUMMARY | ~2020-01-25 | XMS | Encounter Summary ---
Demographics + + + | Address | [address] | | | [place] [address] | + + + | Home Phone [...] Team Providers + +------+ + | Care Editor In Chief Newspaper Name | Role | Phone | + [...] + + | 01/21/ | Telephone | [facility] | Alanis, | Pain | | 2018 | | MEDICINE [address] | MD Petrona | | | | | [place], | [address] [facility] | | | | | [place] [address] | [place] [address] | | | | | [phone] | [phone] | | | | | | | [...] She can go to the ER at [facility] elephone Encounter - Maggie Montoya [...] at 01/21/2019 9:56 AM PDTTelephone Encounter - CantorEsperanza - 01/21/2019 8:13 AM PDTPatient called wanting to speak with the nurse stating it was "kind of urgent." She stated she is having some pain in the area where she had surgery about a year ago and it is getting worse but gave no other information. Please call patient to advise. documented corrie cortes this encounter Plan of Treatment +--------+---------+ + + + | Date | Type | Specialty | Care Team | Description | +--------+---------+ + + + | 02/15/ | Office | Internal Medicine | Alanis, | | | 2019 | Visit | | MD Petrona | | | | | | [address] [place] [address] [place] | | | | | | [place] [address] | | | | | | [phone] | | | | | | | | +--------+---------+ + + + documented as of this encounter Visit Diagnoses Not on filedocumented in this encounter
--- OUTSIDE RECORDS SUMMARY | ~2020-01-25 | XMS | Encounter Summary ---
Demographics + + + | Address | [address] | | | [place] [address] | + + + | Home Phone [...] Providers + +------+ + | Care Financial Developer Name | Role | Phone | [...] | | | | | Encounter | [place], [place] | [place] | | | | | for | [address] | [address] | | | | | long-term | | Phone: | | | | | (current) | | [phone] | | | | | use of other | | Fax: | | | | | medications | | [phone] | | | | | LBP (low [...] 06/23/ | Office | [facility] | Lukasz Charles, | Major depressive | | 2013 | Visit | [address] | PhD [address] | disorder, recurrent | | | | [facility] | [place], [place] | episode, moderate | | | | and Healing, | [address] | ([facility]) (Primary Dx); | | | | | [phone] | LBP (low back pain); | | | | Floor [place], [place] | | Adjustment disorder | | | | [address] | | with anxiety | | | | [phone] | | | +--------+---------+ + + + [...] an appropriate candidate for a stimulator. Diagnosis: Cambridge I: 1. (296.32) Major depressive disorder, recurrent, moderate. 2. (309.24) Adjustment disorder with anxiety. [place] II: Deferred Cambridge III: abdominal pain, migraine headache, low back pain, fibromyalgia. [place] IV: low finances Cambridge V: GAF 55-60 Plan: return in 1 month. Check mood, pain, activity, stress management. Ask about spinal cord stimulator, any changes at home. Continue cognitive/behavioral therapy. Total time spent with patient was approximately 45 minutes. LUKASZ CHARLES PHD [facility] [address] [facility], [address] [place] [address] documented in this en counter Plan of [...]
--- OUTSIDE RECORDS SUMMARY | ~2020-01-25 | XMS | Encounter Summary ---
Demographics + + + | Address | [address] | | | [place] [address] | + + + | Home Phone [...] Providers + +------+ + | Care Restaurant Recruiter Name | Role | Phone | [...] as of this encounter Progress Notes Interface, Corporate Analyst In - 04/07/2006 2:32 AM PDT [id number] GEOVANNI SKELTON Molly [id number] Clinic Date: 04/01/2006 Clinic: Rheumatology Belinda Meehan is here for a couple of trigger point injections. She comes from [place]. Tomorrow, she is due for an EGD [...] 4 months. Caitlin Rivera M.S., F.N.P. / [id number] / [id number] / [id number] / [id number] Electronically signed by Caitlin Rivera 04-06-2006 03:23:35 PM documented i n this encounter Plan of Treatment Not on filedocumented as of this encounter Visit Diagnoses Not on filedocumented in this encounter"
--- OUTSIDE RECORDS SUMMARY | ~2020-01-25 | XMS | Encounter Summary ---
Demographics + + + | Address | [address] | | | [place] [address] | + + + | Home Phone [...] + +------+ + | Care Elementary School Teacher'S Aide Name | Role | Phone | + +------+ + | Petrona Thapa | PCP | | | MD | | | + +------+ + Reason for Visit +--------+--------+ + | Reason | Onset | Comments | | | Date | | +--------+--------+ + | Other | 09/25/ | | | | 2017 | | +--------+--------+ + Encounter Details +--------+ + + + + | Date | Type | Department | Care Team | Description | +--------+ + + + + | 09/25/ | Telephone | [facility] | Alanis, | Other | | 2017 | | MEDICINE [address] | MD Petrona | | | | | [place], | [address] [facility] | | | | | [place] [address] | [place] [address] | | | | | [phone] | [phone] | | | | | | | [...] Telephone Encounter - Maggie Montoya LPN - 10/02/2017 1:30 PM PDTPrinted rx mailed to [facility]. Patient notified INTe luciana Encounter - Malissa Redd - 09/25/2017 9:21 AM PDTPatient called and would like to know if she can get her CPAP supplies sent to [facility] in [facility]? Currently she is getting them through mail order and they have not been sending her t he correct order and she believes this is why she is not getting any sleep and the cause for her headaches. Please advise. [phone] signed by Malissa Redd at 09/25/2017 9:29 AM PDTdocumented i n this encounter Plan of Treatment [...] | | | | | [place] [address] | | | | | | [phone] | | | | | | | | +--------+---------+ + + + documented as of this encounter Visit Diagnoses + + | Diagnosis | + + | OLIVER (obstructive sleep apnea) - Primary Obstructive sleep apnea (adult) (pediatric) | + + documented in this encounter"
--- OUTSIDE RECORDS SUMMARY | ~2020-01-25 | XMS | Encounter Summary ---
Demographics + + + | Address | [address] | | | [place] [address] | + + + | Home Phone [...] Providers + +------+ + | Care Furnace Room Supervisor Name | Role | Phone | [...] [address] | | | | | [facility] | [place], [place] | | | | | [address] | [address] | | | | | [address] | [phone] | | | | | Physician's Pavilion | | | | | | Physician's | | | | | | Pavilion [place], | | | | | | [place] [address] | | | | | | [phone] | | | +--------+--------+ + + + [...]
--- OUTSIDE RECORDS SUMMARY | ~2020-01-25 | XMS | Encounter Summary ---
Demographics + + + | Address | [address] | | | [place] [address] | + + + | Home Phone [...] Team Providers + +------+ + | Care Entertainer Or Variety Artist Name | Role | Phone | [...] + + | 04/09/ | Refill | [facility] | Alanis, | Medication Refill | | 2017 | | MEDICINE [place] | MD Petrona | | | | | [address] | [address] [facility] | | | | | [place] | [place] [address] | | | | | [address] | [phone] | | | | | [phone] | | | +--------+--------+ + + + [...] 2:11 PM PDTPatient returned call to the [facility]. Patient was asked what medical supply she [...] | | | | | [place] [address] | | | | | | [phone] | | | | | | | | +--------+---------+ + + + documented as of this encounter Visit Diagnoses Not on filedocumented in this encounter"
--- OUTSIDE RECORDS SUMMARY | ~2020-01-25 | XMS | Encounter Summary ---
Demographics + + + | Address | [address] | | | [place] [address] | + + + | Home Phone [...] | | | 2006 | Registratio | [facility] | [address] | | | | n | [place] Mailcode: [id number] | [place], [place] | | | | | [place], [place] | [address] | | | | | [address] | [phone] | | | | | [phone] | | | +--------+ + + + [...] | | | | | performed by [employer] | pg/mL | | | | | [facility]. | | | | + + + + + + + + | Specimen | + + | | + + + + + + + | Performing | Address | City/State/Zipcode | Phone Number | | Organization | | | | + + + + + | [facility] | [address] | [place] [address] | | | LABORATORY | | | [...] at: | | | | | | [facility],[address] | | | | | | [facility] | | | | | | [address] | | | | | | [email or web address] | | | | + + + + + + + + | Specimen | + + | | + + + + + + + | Performing | Address | City/State/Zipcode | Phone Number | | Organization | | | | + + + + + | [facility] | [address] | [place], [place] | | | [facility] | | [address] | | + + + + + [...] [place] | | | [facility]. | | + + + + + + + + | Performing | Address | City/State/Zipcode | Phone Number | | Organization | | | | + + + + + | [facility] | [address] | [place] [address] | | | LABORATORY | | | [...] | B12, SERUM | Test performed by [place] | | | | | | [facility] | | | | | | Laboratories. | | | | + + + + + + + + | Specimen | + + | | + + + + + + + | Performing | Address | City/State/Zipcode | Phone Number | | Organization | | | | + + + + + | [facility] | [address] | [place] [address] | | | LABORATORY | | | [...] DEPARTMENT OF | [address] | [place] [address] | | | PATHOLOGY | [address] | | | + + + + + | [place] DEPARTMENT OF | [address] | [place] [address] | | | PATHOLOGY | [address] | | | + + + [...] + + | * Corrected 07/30/06 18:23: USSHIL MCKEON, prev report: Not | [facility] | | reported | DEPARTMENT OF | | | PATHOLOGY | + + + + + + + + | Performing | Address | City/State/Zipcode | Phone Number | | Organization | | | | + + + + + | [facility] DEPARTMENT OF | [address] | [place] [address] | | | PATHOLOGY | [address] | | | + + + + + | [facility] | [facility] [address] | [place] [address] | | | PATHOLOGY | [address] [...] Performed At | + + + | [id number] Estimated GFR > 60 mL/min/1.73 sq m if non- | [facility] | | [id number] Estimated GFR > 60 mL/min/1.73 sq m [...] | + + + + + | [facility] | [address] | [place] [address] | | | PATHOLOGY | [address] | | | + + + + + | [facility] | [address] | [place] [address] | | | PATHOLOGY | [address] | | | + + + + + documented in this encounter Visit Diagnoses Not on filedocumented in this encounter"
--- OUTSIDE RECORDS SUMMARY | ~2020-01-25 | XMS | Encounter Summary ---
Demographics + + + | Address | [address] | | | [place] [address] | + + + | Home Phone [...] Providers + +------+ + | Care Drug Discovery Informatics Specialist Name | Role | Phone | + +------+ + | Petrona Thapa | PCP | | | MD | | | + +------+ + Encounter Details +--------+ + + + + | Date | Type | Department | Care Team | Description | +--------+ + + + + | 09/15/ | [facility] | [facility] | Alanis, | Pain in right lower | | 2019 | Encounter | [facility] [address] XRAY | MD Petrona | leg | | | | [address] | [address] [facility] | | | | | [place] | [place] [address] | | | | | [address] | [phone] | | | | | [phone] | | | +--------+ + + + [...] CECE | | | | | | [place] [address] | | | | | | [phone] | | | | | | | [...]
--- OUTSIDE RECORDS SUMMARY | ~2020-01-25 | XMS | Encounter Summary ---
Demographics + + + | Address | [address] | | | [place] [address] | + + + | Home Phone [...] Team Providers + +------+ + | Care Grievance And Appeals Specialist Name | Role | Phone | + +------+ + | Pedrito Gutierrez MD | PCP | | + +------+ + Encounter Details +--------+ + + + + | Date | Type | Department | Care Team | Description | +--------+ + + + + | 01/14/ | Telephone | Digestive Health | Chris Padgett, | | | 2009 | | [facility] [address] | [address] [facility] | | | | | Bethanie Mailcode: CH4S | [facility] | | | | | Center for Health | [place], [place] | | | | | and Healing, | [address] | | | | | [facility] | [phone] | | | | | Floor [place], [place] | | | | | | [address] | | | | | | [phone] | | | +--------+ + + + [...]
--- OUTSIDE RECORDS SUMMARY | ~2020-01-25 | XMS | Encounter Summary ---
Demographics + + + | Address | [address] | | | [place] [address] | + + + | Home Phone [...] Providers + +------+ + | Care Panel Edge Painter Name | Role | Phone | + +------+ + | Pedrito Gutierrez MD | PCP | | + +------+ + Encounter Details +--------+---------+ + + + | Date | Type | Department | Care Team | Description | +--------+---------+ + + + | 07/30/ | Office | Digestive Health | Eliezer Ruano, | Abdominal Pain | | 2006 | Visit | [place] [address] | [address] | (Primary Dx) | | | | Ave Mailcode: CH4S | [address] | | | | | Center for Health | [facility] [place] | | | | | and Healing, | [address] | | | | | [facility] 1, 6th | [phone] | | | | | Floor [place], [place] | | | | | | [address] | | | | | | [phone] | | | +--------+---------+ + + + [...] as documented in the resident s note. LEIEZER RUANO MD [facility] [address] [facility], 6th [place] [address] alena Palacio - 07/30 4:09 PM PSTS: [...]
--- OUTSIDE RECORDS SUMMARY | ~2020-01-25 | XMS | Encounter Summary ---
Demographics + + + | Address | [address] | | | [place] [address] | + + + | Home Phone [...] Team Providers + +------+ + | Care Veterinary Laboratory Diagnostician Name | Role | Phone | + +------+ + | Petrona Thapa | PCP | | | MD | | | + +------+ + Encounter Details +--------+ + + + + | Date | Type | Department | Care Team | Description | +--------+ + + + + | 09/01/ | Abstract | [facility] | Provider, | | | 2018 | | GASTROENTEROLOGY | MD Colin [address] | | | | | [address] [facility] | Sulma Boyd | | | | | [address] | [place] [address] | | | | | [address] | | | | | | [phone] | | | +--------+ + + + [...] | | | | | | [address] [place] [address] ST [place] | | | | | | [place] [address] | | | | | | [phone] | | | | | | | | +--------+---------+ + + + documented as of this encounter Visit Diagnoses Not on filedocumented in this encounter"
--- OUTSIDE RECORDS SUMMARY | ~2020-01-25 | XMS | Encounter Summary ---
Demographics + + + | Address | [address] | | | [place] [address] | + + + | Home Phone [...] Providers + +------+ + | Care Educational Speech Language Clinician Name | Role | Phone | + +------+ + PCP | Unavailable | + +------+ + Encounter Details +--------+ + + + + | Date | Type | Department | Care Team | Description | +--------+ + + + + | 07/04/ | Office | Endocrinology, | Beto Meeks MD | | | 2005 | Visit-ECX | Diabetes and | [address] | | | | | Clinical Nutrition | [place], [place] | | | | | [address] | [address] | | | | | Loop Mailcode: OPC5 | [phone] | | | | | Outpatient Clinic | | | | | | [facility] | | | | | | [place] [address] | | | | | | [phone] | | | +--------+ + + + [...]
--- OUTSIDE RECORDS SUMMARY | ~2020-01-25 | XMS | Encounter Summary ---
Demographics + + + | Address | [address] | | | [place] [address] | + + + | Home Phone [...] Providers + +------+ + | Care Telephone Interceptor Operator Name | Role | Phone | [...] as of this encounter Progress Notes Interface, Academic Coordinator In - 09/13/2005 2:06 AM PST [id number] GEOVANNI [facility] Date: 12/12/2004 Clinic: Endocrinology PHONE CONTACT NOTE The patient called me today after having surgery last week here at [facility]. Her concern was the development [...] cushion which I have ordered today through [employer], phone #[phone] and fax #[phone]. Today, the patient will monitor the decubiti closely and will be in touch with myself and her other physician depending on the progress. She also still has [address], which may be removed in one or two weeks when she returns to the Surgery Clinic at [facility]. Beto Meeks M.D. PD / HS [id number] / [id number] / [id number] / [id number] cc: Chris Padgett M.D. Electronically signed by Beto Meeks 09-12-2005 02:22:31 AM documented i n this encounter Plan of Treatment Not on filedocumented as of this encounter Visit Diagnoses Not on filedocumented in this encounter"
--- OUTSIDE RECORDS SUMMARY | ~2020-01-25 | XMS | Encounter Summary ---
Demographics + + + | Address | [address] | | | [place] [address] | + + + | Home Phone [...] Team Providers + +------+ + | Care Interactive Video Technician Name | Role | Phone | [...] | | | Metabolism | bypass | [address] | [address] | | | | | Hypovitamino | [address], | Ave | | | | | sis [address] | [address] | [place], [place] | | | | | nutritional | [place] | [address] | | | | | deficiency | [address] | Phone: | | | | | Other | Phone: | [phone] | | | | | protein-jose manuel | [phone] | Fax: | | | | | nick | Fax: | [phone] | | | | | malnutrition | [phone] | | | | | | Weight | | | | | | | gain | | | | | | | Procedures | | | | | | | CONSULT TO | | | | | | | ENDO | | | | | | | [address] | | | | | | | [address] | | | +--------+--------+ + + + [...] | | | [facility] | [place], [place] | Dx); Hypothyroidism; | | | | [address] | [address] | Essential | | | | [address] | [phone] | hypertension 401.9; | | | | [facility] | | 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 Gets primary care in [place], [place] (Maria Esther Cintron). Weight leveled out [...] replacement 08/2007 right knee Lumbar fusion 05/2008 L5-I9grmdka with bone spur removals Appendectomy Cholecystectomy section [...] Hives Mainly in the legs Clindamycin Codeine Xsmzfkl-Utcfnkpbck-Lrf-Caff Balance problems Fioricet W/Codeine (Gsrkgvlrhb-Civlldjbld-Epb-Cod) Keflex (Cephalexin) Morphine IM ( only in [facility]) made gut pain worse 08/27/06: Trial [...] Ly Allred MD R-2, Internal Medicine Pager: [phone] documented in this enco unter Plan of [...] | | If you are | | [place] | | | | screening for diabetes: [...] + | [facility] | [address] | [place] [address] | | | [place] | | | [...] [facility] | [address] | [place] [address] | | | SERVICES, SPECIAL | [address] [...] + + + | [facility] | [address] | [place] [address] | | | SERVICES, CORE | PARK [...] + + + | [facility] | [address] | [place] [address] | | | SERVICES, SPECIAL | [address] [...] by | | | | | | [employer],[address] | | | | | | Abdiaziz Morales, [facility] | | | | | | [address] | | | | | | [phone].[employer]. | | | | | | [facility], [employer], | | | | [...] [facility] | [address] | [place], [place] | | | [facility] | | [address] | | + + + + + [...] | + + + + + | [facility] | [address] | [place] [address] | | | SERVICES, SPECIAL | PARK [...] + | [facility] | [address] | [place] [address] | | | [place] | | | [...]
--- OUTSIDE RECORDS SUMMARY | ~2020-01-25 | XMS | Encounter Summary ---
Demographics + + + | Address | [address] | | | [place] [address] | + + + | Home Phone [...] Team Providers + +------+ + | Care Primer Charging Tool Setter Name | Role | Phone | [...] | | | | Clinical Nutrition | [place], [place] | | | | | [address] | [address] | | | | | Loop Mailcode: OPC5 | [phone] | | | | | Outpatient Clinic | | | | | | [facility] | | | | | | [place] [address] | | | | | | [phone] | | | +--------+ + + + [...] [facility] | [address] | [place], [place] | | | [facility] | | [address] | | + + + + + HEMOGLOBIN A1C (05/31/2002 3:21 PM PST) + + + + + + | Component | Value | Ref Range | Performed | Pathologist | | | | | At | Signature | + + + + + + | HEMOGLOBIN | 6.0Comment: Test | <7.1 % | | | | A1C | performed by [facility] | | | | | | [facility] [...] | + + + + + | [facility] | [address] | [place] [address] | | | LABORATORY | | | [...] | [facility] DEPARTMENT OF | [address] | [place] [address] | | | PATHOLOGY | [address] | | | + + + + + | [facility] DEPARTMENT OF | [address] | [place] [address] | | | PATHOLOGY | [address] [...] + + + + + | [facility] | [address] | [place] [address] | | | PATHOLOGY | [address] | | | + + + + + | [facility] | [address] [facility] | [place] [address] | | | PATHOLOGY | [address] | | | + + + + + documented in this encounter Visit Diagnoses Not on filedocumented in this encounter"
--- OUTSIDE RECORDS SUMMARY | ~2020-01-25 | XMS | Encounter Summary ---
Demographics + + + | Address | [address] | | | [place] [address] | + + + | Home Phone [...] Team Providers + +------+ + | Care Motorized Squad Sergeant Name | Role | Phone [...] [place] | | | | | | [place], [place] | [facility] | | | | | | [address] | [address] | | | | | | | [place], [place] | | | | | | | [address] | | | | | | | Phone: | | | | | | | [phone] | | | | | | | Fax: | | | | | | | [phone] | +--------+--------+ + + + + Encounter Details +--------+---------+ + + + | Date | Type | Department | Care Team | Description | +--------+---------+ + + + | 06/23/ | Office | [facility] Comprehensive | Adrien Smith, | Fibromyalgia | | 2013 | Visit | Pain Center at | [address] [facility] | syndrome 729.1 | | | | [facility] | [facility] [id number] | (Primary Dx); LBP | | | | [address] | [place], [place] | (low back pain); | | | | [facility] | [address] | Chronic Bilateral | | | | and Healing, | [phone] | Shoulder Pain; Post | | | | | | laminectomy | | | | Floor [place], [place] | | syndrome; Chronic | | | | [address] | | migraine | | | | [phone] | | | +--------+---------+ + + + [...] evaluation of a patient with fibromyalgia, the [facility] Fibromyalgia clinic suggests laboratory screening to [...] suggests that fibromyalgia patients may have reduced ART EDITOR opioid receptors (Reji is RE, et al. Decreased central mu-opioid receptor availability in fibromyalgia. J Neurosci . 27(37):87849-6, 2006Feb 24.) and there are no controlled [...] documented in our notes. ADRIEN SMITH MD Candy Department Manager, [facility] Fingernail Former, Pain Medicine Professor, Anesthesiology & Perioperative Medicine Brandon Phipps Md - 06/23/2013 2:21 PM PST [facility] Return Visit with Dr. [...] as she has worked with him [facility]. This visit can be in tandem [...] before her lumbar surgeries and recently in [place]. She has short-term relief from thes e treatments. I would like her to return to see Dr. Adrien Smith to discuss these treatment options. Consult to [facility] physical therapy: A supervised physical therapy [...] has been treated at the [facility] for back pain with the following [...] and a pain drawing which I reviewed. [facility] Brief Pain Inventory: (ten= worst [...] right knee Lumbar fusion 05/2008, ' & L5-A0bnihvp with bone spur removals Appendectomy Cholecystectomy section [...] Hives Mainly in the legs Clindamycin Codeine Bmhvgbi-Iqzwloeunt-Zbl-Caff Balance problems Fioricet W/Codeine (Hoizeeddxj-Lqtzngpqty-Zhx-Cod) Keflex (Cephalexin) Morphine IM ( only in [facility]) made gut pain worse 08/27/06: Trial of oral MSIR caused leg swelling Penicillins Sulfa (Sulfonamide Antibiotics) Tramadol Ms. Meehan reports no side effects. The Review of Systems provided by Ms. Meehan and documented by the [facility] was reviewed. Austyn tional comments: 1. [...] evaluation of a patient with fibromyalgia, the [facility] Fibromyalgia clinic suggests laboratory screening to [...] suggests that fibromyalgia patients may have reduced ART EDITOR opioid receptors (Xavi FRANK, et al. Decreased central mu-opioid receptor availability in fib romyalgia. J Neurosci. 27(37):82450-1, 2006Feb 24.) and there are no controlled [...]
--- OUTSIDE RECORDS SUMMARY | ~2020-01-25 | XMS | Encounter Summary ---
Demographics + + + | Address | [address] | | | [place] [address] | + + + | Home Phone [...] Providers + +------+ + | Care Lab Assistant Name | Role | Phone | [...] [address] | | | | | [place], [place] | [place], [place] | | | | | [address] | [address] | | | | | [phone] | [phone] | | | | | | | [...]
--- OUTSIDE RECORDS SUMMARY | ~2020-01-25 | XMS | Encounter Summary ---
Demographics + + + | Address | [address] | | | [place] [address] | + + + | Home Phone [...] + +------+ + | Care Public Health Sanitarian Technician Name | Role | Phone | [...] | | | | | Procedures | [facility] | [facility] | | | | | CONSULT TO | Rd | Health and | | | | | NEUROLOGY | [place], [place] | Healing, | | | | | | [address] | Building [address], | | | | | | Phone: | [facility] Floor | | | | | | [phone] | [place], [place] | | | | | | | [address] | | | | | | | Phone: | | | | | | | [phone] | | | | | | | Fax: | | | | | | | [phone] | +--------+--------+ + + + + Encounter [...] | | | | | | [facility] | | | | | | Health and Healing, | | | | | | Building | | | | | | Floor [place], [place] | | | | | | [address] | | | | | | [phone] | | | +--------+---------+ + + + [...] low blood pressure. 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 Social History Main Topics [...] touch symmetrically throughout. Cerebellar testing shows normal nszqrb-xo-ladx and finger tapping. On gait testing, she [...] the names of 3 headache specialists in [place]- Dr. Koby García, Dr. Dakota Sweet and [...]
--- OUTSIDE RECORDS SUMMARY | ~2020-01-25 | XMS | Encounter Summary ---
Demographics + + + | Address | [address] | | | [place] [address] | + + + | Home Phone [...] 2006 | Visit | Rheumatology [address] | (Primary Dx); | | | | [address] | | Fibromyalgia; | | | | Mailcode: OPC5 | | Fibromyalgia | | | | Outpatient Clinic | | | | | | Building [place], | | | | | | [place] [address] | | | | | | [phone] | | | +--------+---------+ + + + [...] discomfort- entire abd around to back. Seeing [facility] pain clinic. Fentanyl patch helped pain [...]
--- OUTSIDE RECORDS SUMMARY | ~2020-01-25 | XMS | Encounter Summary ---
Demographics + + + | Address | [address] | | | [place] [address] | + + + | Home Phone [...] Team Providers + +------+ + | Care Inclined Railway Operator Name | Role | Phone | + +------+ + | Maria Esther Cintron MD | PCP | | + +------+ + Encounter Details +--------+ + + + + | Date | Type | Department | Care Team | Description | +--------+ + + + + | 09/21/ | Telephone | Digestive Health | Chris Padgett, | | | 2008 | | [place] [address] | [address] [facility] | | | | | Bethanie Mailcode: CH4S | [address] | | | | | Center for Health | [place], [place] | | | | | and Healing, | [address] | | | | | Building , 6th | [phone] | | | | | Floor [place], [place] | | | | | | [address] | | | | | | [phone] | | | +--------+ + + + [...]
--- OUTSIDE RECORDS SUMMARY | ~2020-01-25 | XMS | Encounter Summary ---
Demographics + + + | Address | [address] | | | [place] [address] | + + + | Home Phone [...] Providers + +------+ + | Care Director Vaccine Name | Role | Phone | + [...] + + | 09/15/ | Office | [facility] | Emmy-Tajti, | Pain in right lower | | 2019 | Visit | MEDICINE [address] | MD [place] | leg (Primary Dx); | | | | [address] [place], | [address] [facility] | Fall in bathtub, | | | | [place] [address] | [place] [address] | initial encounter; | | | | [phone] | [phone] | Other osteoporosis | | | | [...] Surgeon: Luther Brito MD; Location: [facility] MEDICAL PROCEDURE UNIT DILATION AND CURETTAGE OF UTERUS ELBOW SURGERY FINGER TRIGGER RELEASE 2002 FINGER TRIGGER RELEASE 2010 GASTRIC BYPASS SURGERY 2004 HYSTERECTOMY 05/14/1980 JOINT REPLACEMENT Bilateral 2006 2007 KNEE ARTHROSCOPY 2005 LAPAROSCOPY 01/27/2015 LAPAROTOMY 2008 ROTATOR CUFF REPAIR 2005 SPINE SURGERY TONSILLECTOMY 1964 UPPER GASTROINTESTINAL ENDOSCOPY N/A 12/18/2017 Procedure: EGD; Surgeon: Luther Brito MD; Location: [facility] MEDICAL PROCEDURE UNIT CURRENT MEDICATIONS [...] ours as needed for Pain. Incontinence Supplies [facility] As directed 100 each 11 levothyroxine (SYNTHROID) [...] (See Comments) Confused and questionable for seizures Uyzxivqjcq-Erij-Kufftvjh Hives and Rash Cephalexin Hives Ciprofloxacin Hives [...] Note: Parts of this documentwere created using Listar speech recognition software. As a r esult, there may be unintended word spelling errors. Every attempt was made to correct the dictation. Lew colin in this encounter Plan of Treatment +--------+---------+ + + + | Date | Type | Specialty | Care Team | Description | +--------+---------+ + + + | 02/15/ Office | Internal Medicine | Alanis, | | | 2019 | Visit | | MD [place] | | | | | | [address] | | | | | | [place] [address] | | | | | | [phone] | | | | | | | [...] | | | First dose on [facility] 10/15/17 at 1215 | | [...]
--- OUTSIDE RECORDS SUMMARY | ~2020-01-25 | XMS | Encounter Summary ---
Demographics + + + | Address | [address] | | | [place] [address] | + + + | Home Phone [...] Team Providers + +------+ + | Care Scrub Wheel Operator Name | Role | Phone [...] as of this encounter Progress Notes Interface, Prop Making Supervisor In - 02/15/2006 2:03 AM PDT [id number] GEOVANNI SKELTON Molly [id number] Clinic Date: 10/23/2005 Clinic: Endocrinology Subjective: Belinda [...] her back on October 06, 2005, in [place], [place]. This study showed a moderate central disk bulge at L4-L5 consistent with a herniated nucleus pulposus. There has been some discussion by her physicians in [place] about the possibility of giving her epidural [...] most recent laboratory studies were performed in [place] on July 02, 2005. At that time, [...] months. Beto Meeks M.D. PD / HS [id number] / [id number] / [id number] / cc: Joanna Arshad M.D. [address] [place] [address] Electronically signed by Beto Meeks 02-14-2006 02:02:42 AM documented i n this encounter Plan of Treatment Not on filedocumented as of this encounter Visit Diagnoses Not on filedocumented in this encounter"
--- OUTSIDE RECORDS SUMMARY | ~2020-01-25 | XMS | Encounter Summary ---
Demographics + + + | Address | [address] | | | [place] [address] | + + + | Home Phone [...] Providers + +------+ + | Care Motor Scooter Repairer Name | Role | Phone | + +------+ + | Petrona Thapa | PCP | | | MD | | | + +------+ + Encounter Details +--------+ + + + + | Date | Type | Department | Care Team | Description | +--------+ + + + + | 05/10/ | Orders Only | [facility] | Alanis, | Chronic bilateral | | 2017 | | MEDICINE [address] | MD Petrona | low back pain with | | | | [address] [place], | [address] [place] | left-sided sciatica | | | | [place] [address] | [place] [address] | (Primary Dx) | | | | [phone] | [phone] | | | | | | | [...] | | | | | [place] [address] | | | | | | [phone] | | | | | | | [...]
--- OUTSIDE RECORDS SUMMARY | ~2020-01-25 | XMS | Encounter Summary ---
Demographics + + + | Address | [address] | | | [place] [address] | + + + | Home Phone [...] Team Providers + +------+ + | Care Network/Telecom Engineer Name | Role | Phone | + +------+ + | Sulaiman Carrera MD | PCP | | + +------+ + Encounter Details +--------+ + + + + | Date | Type | Department | Care Team | Description | +--------+ + + + + | 08/26/ | Ancillary | Registration 1911 | | | | 2006 | Registratio | [address] | | | | | n | Peterson Mailcode: [id number] | | | | | | [place], [place] | | | | | | [address] | | | | | | [phone] | | | +--------+ + + + [...]
--- OUTSIDE RECORDS SUMMARY | ~2020-01-25 | XMS | Encounter Summary ---
Demographics + + + | Address | [address] | | | [place] [address] | + + + | Home Phone [...] Providers + +------+ + | Care Home Insurance Agent Name | Role | Phone | [...] 2006 | Visit | Rheumatology [address] [employer] [employer] | (Primary Dx); | | | | [address] | | Fibromyalgia; | | | | Mailcode: OPC5 | | Fibromyalgia | | | | Outpatient Clinic | | | | | | Building [place], | | | | | | [place] [address] | | | | | | [phone] | | | +--------+---------+ + + + [...] discomfort- entire abd around to back. Seeing [facility] pain clinic. Fentanyl patch helped pain [...] + + +--------+ + + | AR INJECT TRIGGER | Procedures | Routin | Fibromyalgia | Ordered: 02/16/2007 | | POINTS, > 3 | | e | | | + + +--------+ + + | AR INJECT TRIGGER | Procedures | Routin | Fibromyalgia | Ordered: 02/16/2007 | | POINTS, > 3 | | e | Fibromyalgia | | + + +--------+ + + | AR INJECT TRIGGER | Procedures | Routin | [...]
--- OUTSIDE RECORDS SUMMARY | ~2020-01-25 | XMS | Encounter Summary ---
Demographics + + + | Address | [address] | | | [place] [address] | + + + | Home Phone [...] Providers + +------+ + | Care Property Administrator Name | Role | Phone | [...] + + | 11/23/ | Telephone | [facility] | Luther Brito MD | Other | | 2017 | | GASTROENTEROLOGY | [address] | | | | | [address] [facility] | [place], [place] | | | | | [address] [place], [place] | [address] | | | | | [address] | [phone] | | | | | [phone] | | | +--------+ + + + [...] Dr. Brito / Dixie Call back number: [phone] documented in this encou nter Plan of [...] | | | | | [place] [address] | | | | | | [phone] | | | | | | | | +--------+---------+ + + + documented as of this encounter Visit Diagnoses Not on filedocumented in this encounter"
--- OUTSIDE RECORDS SUMMARY | ~2020-01-25 | XMS | Encounter Summary ---
Demographics + + + | Address | [address] | | | [place] [address] | + + + | Home Phone [...] Providers + +------+ + | Care Shipping Helper Name | Role | Phone | [...] | Pain | Diagnoses | Emmy | Demurrage Agent Chh1 | | | | Management | [...] | | | | | Mentrin[facility]'s | [address] | [place], [place] | | | | | disease, | Phone: | [phone] | | | | | bilateral | [phone] | Phone: | | | | | Rheumatoid | Fax: | [phone] | | | | | arthritis, | [phone] | Fax: | | | | | unspecified | | [phone] | | | | | | | [...] + + | 02/05/ | Office | [facility] | Shalonda Garcia, | Post laminectomy | | 2017 | Visit | Pain Center at | WEAVING LOOM OPERATOR [address] | syndrome (Primary | | | | [place] | [place], [place] | Dx); Intractable | | | | [address] | [address] | chronic migraine | | | | [place] for [facility] | [phone] | without aura and | | | | and Healing, | | with status | | | | | | migrainosus; | | | | Floor [place], [place] | | Fibromyalgia | | | | [address] | | | | | | [phone] | | | +--------+---------+ + + + [...] Discuss with your PCP, a referral to [facility] for discussion regarding spinal cord stimulator Shalonda Mustafa DNP, WEAVING LOOM OPERATOR-C [facility] [address] [place] [address] documented in this encounter Progress Notes Jing Holloway - 02/05/2017 1:35 PM PDT Date: 02/05/2017 was referred for pain management consultation by Sulaiman Whitlock MD [address] [place] [address] Reason for consult: cervical radiculopathy, low back [...] by her primary care pr magdy in [facility]. This provider is currently in the process of re-opening a new clinic and may be available to see patients next month. She reports that this provider d oes not wish to continue prescribing her pain medication and has instructed her to find anot her provided to take over her pain prescriptions. She was previously a patient at a pain cli brigida in [facility], however her insurance changed and she no longer has coverage at this clinic. She is hesitant to seek care with providers near her home in [facility], citing a neg ative experience with a [...] able to perform routine tasks such as [employer]. She feels she is at the point where is not able to determine which medications are hel pful in improving her pain. She endorses incontinence symptoms. She reports there are "days I just want to " because her pain is so bad. 's treatment for this pain complaint has included: MEDICATIONS: - Gabapentin - [place] - [place]ran - Cymbalta - Fentanyl Patches NON-MEDICATION THERAPIES: - Physical Therapy - Exercise - Heat/Ice - Pool Therapy - Brace/Support - TENS INTERVENTIONS: - Spinal surgery x3, Laminectomy unknown level - Epidural Steroid Injections - Trigger Point Injections lives in a single family home in [place], [place]. She is not currently working , she receives disability. As a result of her pain, notes multiple changes in her life, including limiting her ability to perform routine tasks. 's goals from today's appointment include: consultation only (advice only to you and your primary care physician), counseling, drug treatment, help in coping with the pain a nd stress management. HEAVY REPAIRER Brief Pain Inventory: (ten= worst possible pain [...] pulmonary disease) (HCC) CVA (cerebral vascular accident) ([facility]) Fibromyalgia 07/25/2008 Craniocervical junction appears stenotic in cervical extension. Headache HTN (hypertension) Hypothyroidism 11/11/2006 IBS (irritable bowel syndrome) Internal hemorrhoid Kidney stone Major depressive disorder, recurrent episode, moderate ([facility]) 07/31/2006 Metabolic syndrome X 250.80 Metabolic syndrome X 250.80 Optic nerve hemorrhage left eye Other general symptoms Pneumonia PUD (peptic ulcer disease) RA (rheumatoid arthritis) ([facility]) Radiculitis, lumbosacral 03/03/2008 Reduced vision Scoliosis Sleep apnea Spondylosis with myelopathy, lumbar region 07/02/2006 Vertebral fracture T7,8,9 Xray T spine 2003 Past Surgical History Procedure Laterality Date Salpingo-oophorectomy Colonoscopy 03/2006 Tonsillectomy Pr d&c after delivery Pr inject trigger point, 1 or 2 Knee replacement 02/2007 Left knee Knee replacement 08/2007 right knee Lumbar fusion 05/2008, '11 & '12 L5-M9pomyzt with bone spur removals Appendectomy Cholecystectomy section [...] Hives Mainly in the legs Clindamycin Codeine Xlstahx-Jorzqqnryu-Oag-Caff Balance problems Fioricet W/Codeine [Uzsyvbjvjh-Kswvrlnggr-Swh-Cod] Keflex [Cephalexin] Ketorolac Unknown Morphine IM ( only in [facility]) made gut pain worse [...] and summary of old medical records (source: [employer]), as summarized in the body of the [...] by her primary care pr magdy in [facility]. She reports that this provider does [...] Whitlock MD may consider a referral to [facility] for discu ssion regarding spinal cord stimulator -No follow up needed at this time 02/05/2017: IKathleen, am functioning as a medical auditor for JIMBO Dutta DNP-C I have reviewed and verified the above scribed note of my visit with this patient as record ed by Kathleen Riley. Shalonda Mustafa DNP, WEAVING LOOM OPERATOR-C [facility] [address] [place] [address] mMaris clark MA - 02/05/2017 1:35 PM [...]
--- OUTSIDE RECORDS SUMMARY | ~2020-01-25 | XMS | Encounter Summary ---
Demographics + + + | Address | [address] | | | [place] [address] | + + + | Home Phone [...] Providers + +------+ + | Care Environmental Monitoring Technician Name | Role | Phone | [...]
--- OUTSIDE RECORDS SUMMARY | ~2020-01-25 | XMS | Encounter Summary ---
Demographics + + + | Address | [address] | | | [place] [address] | + + + | Home Phone [...] + +------+ + | Care Manager Life Sciences Name | Role | Phone | + [...] + | 04/02/ | Refill | [facility] | Alanis, | Medication Refill | | 2018 | | MEDICINE [address] | MD [place] | | | | | [place], | [address] [facility] | | | | | [place] [address] | [place] [address] | | | | | [phone] | [phone] | | | | | | | [...] | | | | | [place] [address] | | | | | | [phone] | | | | | | | | +--------+---------+ + + + documented as of this encounter Visit Diagnoses Not on filedocumented in this encounter"
--- OUTSIDE RECORDS SUMMARY | ~2020-01-25 | XMS | Encounter Summary ---
Demographics + + + | Address | [address] | | | [place] [address] | + + + | Home Phone [...] Providers + +------+ + | Care Assistant Fitness Manager Name | Role | Phone | [...] | | | [facility] | [place], [place] | | | | | [address] | [address] | | | | | [address] | [phone] | | | | | Physician's | | | | | | Pavilion, 1st floor | | | | | | [place], [place] | | | | | | [address] | | | | | | [phone] | | | +--------+--------+ + + + [...]
--- OUTSIDE RECORDS SUMMARY | ~2020-01-25 | XMS | Encounter Summary ---
Demographics + + + | Address | [address] | | | [place] [address] | + + + | Home Phone [...] Providers + +------+ + | Care Bottom Sprayer Name | Role | Phone | [...] as of this encounter Progress Notes Interface, Solderer Production Line In - 10/30/2005 2:06 AM PDT [id number] GEOVANNI Barnes [id number] Clinic Date: 10/23/2005 Clinic: Ms. Meehan comes in today for followup of her abdominal CT. The CT is normal. We will follow her for abdominal pain. I will see her again in 3 months. If she has exacerbation, she can come earlier. I also gave her 30 tablets of 5 mg oxycodone for the pain. Chris Padgett M.D. CD / [id number] / [id number] / [id number] / Electronically signed by Chris Padgett 10-29-2005 10:10:39 AM documented i n this encounter Plan of Treatment Not on filedocumented as of this encounter Visit Diagnoses Not on filedocumented in this encounter"
--- OUTSIDE RECORDS SUMMARY | ~2020-01-25 | XMS | Encounter Summary ---
Demographics + + + | Address | [address] | | | [place] [address] | + + + | Home Phone [...] Providers + +------+ + | Care Boilermaker Ship Name | Role | Phone | + [...] + + | 09/16/ | Telephone | [facility] | Miranda Lambert, | Memory loss | | 2006 | | Pain Center at | ANP | | | | | [place] | | | | | | [address] | | | | | | [facility] | | | | | | and Healing, | | | | | | Building [address] | | | | | | Floor [place], [place] | | | | | | [address] | | | | | | [phone] | | | +--------+ + + + [...]
--- OUTSIDE RECORDS SUMMARY | ~2020-01-25 | XMS | Encounter Summary ---
Demographics + + + | Address | [address] | | | [place] [address] | + + + | Home Phone [...] Team Providers + +------+ + | Care Entry Level Account Executive Name | Role | Phone [...] | | | | sciatica | [place] [address] | | | | | | S/P lumbar | Phone: | | | | | | fusion | [phone] | | | | | | Sacroiliac | Fax: | | | | | | inflammation | [phone] | | | | | | (HCC) [...] | | | | sciatica | [place] [address] | [address] | | | | | S/P lumbar | Phone: | Phone: | | | | | fusion | [phone] | [phone] | | | | | Sacroiliac | Fax: | Fax: | | | | | inflammation | [phone] | [phone] | | | | | ([facility]) | | | | | | | [...] | low back | [address] | [address] [place] | | | | | pain without | MD [address] | [place] | | | | | sciatica | [address] | [address] Phone: | | | | | | [place], | [phone] | | | | | | [place] | Fax: | | | | | | [address] | [phone] | | | | | | Phone: | | | | | | | [phone] | | | | | | | Fax: | | | | | | | [phone] | | +--------+ + + + + + Encounter Details +--------+---------+ + + + | Date | Type | Department | Care Team | Description | +--------+---------+ + + + | 09/23/ | Office | [facility] | Lencho Rivas, | Sacroiliac | | 2019 | Visit | PHYSIATRY [address] | PA-C [address] | inflammation (HCC) | | | | [address] | [address] [place] | (Primary Dx); Acute | | | | [place] | [place] [address] | midline low back | | | | [address] | [phone] | pain with bilateral | | | | [phone] | | sciatica; S/P lumbar | | [...] 9:20 AM PDTReferral to michelle james ([facility]). Referral to massage therapy. Due [...] press against a nerve. Date Last Reviewed: 08/13/201719994305-4437 [employer]. [address] [place] [address]. All righ ts reserved. This information is not intended as a substitute for professional medical care. Always follow your healthcare professional's instructions. documented in this encounter Progress Notes Lencho Rivas PA-C - 09/23/2018 9:20 AM PDTFormatting of this note might be different fro m the original. Lencho Rivas PA-C [address] [facility], [address] [place], [place] [id number] FAX: CHIEF COMPLAINT: Chief Complaint Patient presents [...] COPD (chronic obstructive pulmonary disease) ([facility]) Depression Diarrhea Dumping syndrome Fall at home Fatigue fracture of vertebra Fibromyalgia Full dentures GERD (gastroesophageal reflux disease) Glaucoma Hyperparathyroidism ([facility]) Hypothyroidism IBS (irritable bowel syndrome) Idiopathic scoliosis Leg edema Low back pain Lumbar postlaminectomy syndrome Lumbar radiculopathy primarily right 01/04/2015 Meniere syndrome Migraine with aura Migraines Muscle cramping Muscle spasm Myalgia Nausea Nonalcoholic hepatosteatosis Obesity Opioid dependence ([facility]) Orthostatic hypotension OLIVER (obstructive sleep apnea) Osteoarthritis, generalized Osteopenia Osteoporosis Palpitations Peripheral neuropathy Rheumatoid arthritis ([facility]) Right arm pain 01/04/2015 RLS [...] COLONOSCOPY; Surgeon: Luther Brito MD; Location: [facility] DILATION AND CURETTAGE OF UTERUS ELBOW SURGERY FINGER TRIGGER RELEASE 2002 FINGER TRIGGER RELEASE 2009 GASTRIC BYPASS SURGERY 2004 HYSTERECTOMY 05/14/1980 JOINT REPLACEMENT Bilateral 2007 2007 KNEE ARTHROSCOPY 2005 LAPAROSCOPY 01/27/2015 LAPAROTOMY 2008 ROTATOR CUFF REPAIR 2005 SPINE SURGERY TONSILLECTOMY 1964 UPPER GASTROINTESTINAL ENDOSCOPY N/A 12/18/2017 Procedure: EGD; Surgeon: Luther Brito MD; Location: [facility] CURRENT MEDICATIONS: Current Outpatient [...] (See Comments) Confused and questionable for seizures Qlghkujyur-Varx-Frkoehxf Hives and Rash Cephalexin Hives Ciprofloxacin Hives [...] with short or intermediate project manager memory. Cranial nerves 2-12 appear grossly intact. [...] porosis type, subsequent encounter Fibromyalgia PLAN: Belinda J Shefali presented today, and it was a pleasure [...] steroid injections. I did feel that Belinda Barnes Shefali would be a good candidate for aquatic therapy. Referra l placed today I did feel that Belinda Meehan would be a good candidate for size therapy. Referral placed today Patient is currently enrolled in a pain clinic in [place], [place]. 5) Patient will follow up with [...] | | | | | [place] [address] | | | | | | [phone] | | | | | | | [...] | | | | | | inflammation ([facility]) | | | | | | Osteoporosis [...]
--- OUTSIDE RECORDS SUMMARY | ~2020-01-25 | XMS | Encounter Summary ---
Demographics + + + | Address | [address] | | | [place] [address] | + + + | Home Phone [...] Team Providers + +------+ + | Care Bindery Production Manager Name | Role | Phone | [...] as of this encounter Progress Notes Interface, Inbound Call Center Representative In - 11/19/2005 3:09 AM PDT [place] [facility] [address] [place] [address] or May 09, 2003 Pedrito Gutierrez M.D. [address] [place] [address] RE: BELINDA MEEHAN MR #: [id number] Dear Dr. Gutierrez: I had the pleasure [...] this testing done through your clinic in [place]. I will plan to see her again [...] regarding her condition. Sincerely, Issac Meeks M.D. podiatric physician, Division of Endocrinology, Diabetes, and Clinical Career And Technology Education Teacher, Metabolic Disorders Clinic PBD / [id number] / [id number] / [id number] / Tdocumented in this encounter Plan of Treatment Not on filedocumented as of this encounter Visit Diagnoses Not on filedocumented in this encounter"
--- OUTSIDE RECORDS SUMMARY | ~2020-01-25 | XMS | Encounter Summary ---
Demographics + + + | Address | [address] | | | [place] [address] | + + + | Home Phone [...] Providers + +------+ + | Care Yarn Handler Name | Role | Phone | [...] + | 07/01/ | Telephone | [facility] | Alanis, | Foot Pain | | 2017 | | MEDICINE [address] | MD [place] | | | | | [place], | [address] [facility] | | | | | [place] [address] | [place] [address] | | | | | [phone] | [phone] | | | | | | | [...] go to an urgent or ER in [place] for evaluation and x-ra y. Patient understands [...] 3. Patient wants this order sent to [place]. Please call [phone] to discuss. 18 8:37 AM PSTdocumented in [...] | | | | | [place] [address] | | | | | | [phone] | | | | | | | | +--------+---------+ + + + documented as of this encounter Visit Diagnoses Not on filedocumented in this encounter"
--- OUTSIDE RECORDS SUMMARY | ~2020-01-25 | XMS | Encounter Summary ---
Demographics + + + | Address | [address] | | | [place] [address] | + + + | Home Phone [...] Team Providers + +------+ + | Care Butter Fat Tester Name | Role | Phone | [...] + + | 02/09/ | Telephone | [facility] | Alanis, | Other | | 2018 | | MEDICINE [address] | MD [place] | | | | | [place], | [address] [facility] | | | | | [place] [address] | [place] [address] | | | | | [phone] | [phone] | | | | | | | [...] | | | | | [place] [address] | | | | | | [phone] | | | | | | | | +--------+---------+ + + + documented as of this encounter Visit Diagnoses Not on filedocumented in this encounter"
--- OUTSIDE RECORDS SUMMARY | ~2020-01-25 | XMS | Encounter Summary ---
[...] Providers + +------+ + | Care Evp Marketing Name | Role | Phone | [...] [address] | | | | | | [place], [place] | | | | | | [address] | | | | | | [phone] | | | +--------+ + + + [...]
--- OUTSIDE RECORDS SUMMARY | ~2020-01-25 | XMS | Encounter Summary ---
Demographics + + + | Address | [address] | | | [place] [address] | + + + | Home Phone [...] + +------+ + | Care Poultry Hatchery Manager Name | Role | Phone | [...] | 07/28/ | Telephone | [facility] | Alanis, | Appointment | | 2017 | | MEDICINE [address] | MD [place] | | | | | [place], | [address] [facility] | | | | | [place] [address] | [place] [address] | | | | | [phone] | [phone] | | | | | | | [...] Genao. I have advised that the consult [facility] physiatry would be for possible spinal [...] keep her appointment with Dr. Ulysses Genao [facility]. P M PSTdocumented in this encounter [...] | | | | | [place] [address] | | | | | | [phone] | | | | | | | | +--------+---------+ + + + documented as of this encounter Visit Diagnoses Not on filedocumented in this encounter"
--- OUTSIDE RECORDS SUMMARY | ~2020-01-25 | XMS | Encounter Summary ---
Demographics + + + | Address | [address] | | | [place] [address] | + + + | Home Phone [...] Providers + +------+ + | Care City Detective Name | Role | Phone | [...] | Pain | Diagnoses | Miracle, | Brule, | | | | Management | LBP (low | NIHARIKA Jean | Lukasz Rhodes, PhD | | | | | back pain) | [address] | [address] | | | | | DJD | [address] | Ave | | | | | (degenerativ | [place], [place] | [place] | | | | | e joint | [address] | [address] | | | | | disease) of | | Phone: | | | | | knee Knee | | [phone] | | | | | pain Major | | Fax: | | | | | depressive | | [phone] | | | | | disorder, | [...] / | Office | [facility] Center at [facility] | Lukasz Charles, | Major Depressive | | 2007 | Visit | [address] | PhD [address] | Disorder, Recurrent | | | | Center [facility] | [place], [place] | Episode, Moderate | | | | and Healing, | [address] | ([facility]); LBP (Low Back | | | | | [phone] | Pain); Fibromyalgia | | | | Floor [place], [place] | | syndrome 729.1; | | | | [address] | | Adjustment Disorder | | | | [phone] | | with Anxiety; | | | [...] skills during intense pain episode s. Diagnosis: [place] I: 1. (296.32) Major depressive disorder, recurrent, moderate. 2. (309.24) Adjustment disorder with anxiety. 3. (307.89) Chronic pain disorder associated with both psychological factors and a gene ral medical condition. [place] II: Deferred [place] III: abdominal pain, migraine headache, low back pain. [place] IV: low finances [place] V: GAF 55-60 Plan: return with next medical follow-up appointment. Check mood, knee surgery, relaxatio n, activity, distraction. Continue cognitive/behavioral therapy. Total time spent with patient was approximately 45 minutes. LUKASZ CHARLES [facility] [address] [facility], [address] [place] [address] documented in this encount er Plan of Treatment + + +--------+ + + | Name | Type | Priori | Associated Diagnoses | Order Schedule | | | | ty | | | + + +--------+ + + | SC PSYCHOTHERPY, | Procedures | Routin | Major Depressive | Ordered: 08/13/2007 | | OFFICE (30-97) | | e | Disorder, Recurrent | | | | | | Episode, Moderate | | | | | | ([facility]) LBP (Low Back | | | | [...]
--- OUTSIDE RECORDS SUMMARY | ~2020-01-25 | XMS | Encounter Summary ---
Demographics + + + | Address | [address] | | | [place] [address] | + + + | Home Phone [...] Providers + +------+ + | Care Automobile Accessories Salesperson Name | Role | Phone | [...] of this encounter Progress Notes Interface, Vending Route Servicer In - 01/12/2005 10:09 AM PDT [id number] GEOVANNI Barnes Clinic Date: 12/11/2004 Clinic: Telephone [...] address at [facility] [address] [address]. The address was confirmed with Ms. Meehan prior to sending. Ms. Meehan has a followup appointment in Dr. Padgett's clinic on December 19, 2004. Nathalia Richard R.N., B.S.N. Liliya Kirkpatrick. / [id number] / [id number] / [id number] / Electronically signed by Nuris Chapman 12-20-2004 05:05:06 PM docushazia i n this encounter Plan of Treatment Not on filedocumented as of this encounter Visit Diagnoses Not on filedocumented in this encounter"
--- OUTSIDE RECORDS SUMMARY | ~2020-01-25 | XMS | Encounter Summary ---
Demographics + + + | Address | [address] | | | [place] [address] | + + + | Home Phone [...] Naeem Mcrae | | | | | [facility] | [place], [place] | | | | | and Healing, | [address] | | | | | [facility] [address], [facility] | [phone] | | | | | Floor [place], [place] | | | | | | [address] | | | | | | [phone] | | | +--------+ + + + [...]
--- OUTSIDE RECORDS SUMMARY | ~2020-01-25 | XMS | Encounter Summary ---
Demographics + + + | Address | [address] | | | [place] [address] | + + + | Home Phone [...] Providers + +------+ + | Care Clinical Data Manager Name | Role | Phone | + +------+ + | Petrona Thapa | PCP | | | MD | | | + +------+ + Reason for Visit + +--------+ + | Reason | Onset | Comments | | | Date | | + +--------+ + | Hospitalization | 03/08/ | | | | 2017 | | + +--------+ + Encounter Details +--------+ + + + + | Date | Type | Department | Care Team | Description | +--------+ + + + + | 03/08/ | Telephone | [facility] | Alanis, | Hospitalization | | 2017 | | MEDICINE [address] | MD [place] | | | | | [place], | [address] [facility] | | | | | [place] [address] | [place] [address] | | | | | [phone] | [phone] | | | | | | | [...] Encounter - Maggie Montoya LPN - 03/08/2018 4:56 PM PDTMessage left with the ICU nurse, will give message to patient that MD aware of hospitalization elephone Encounter - Adriana Cantor - 2:57 PM PDTPatient returned call to speak with the nurse. Patient stated she had a n emergent 13 hour surgery yesterday in [place] to remove bad adhesions around her intesti flor and is in a lot of pain but currently in the hospital. Patient would like a call back a t [phone]. elepho ne Encounter - Adriana Cantor - 03/08/2018 6:59 AM PDTPatient called asking to speak wi th the nurse. Patient wanted to let the office know she is in the hospital in [place] in the ICU as she had surgery yesterday for a bowel obstruction. Patient can be reached at [phone]. documented i sebastian this encounter Plan of Treatment +--------+---------+ + + + | Date | Type | Specialty | Care Team | Description | +--------+---------+ + + + | 02/15/ | Office | Internal Medicine | Alanis, | | | 2019 | Visit | | MD [place] | | | | | | [facility] [address] | | | | | | [place] [address] | | | | | | [phone] | | | | | | | | +--------+---------+ + + + documented as of this encounter Visit Diagnoses Not on filedocumented in this encounter"
--- OUTSIDE RECORDS SUMMARY | ~2020-01-25 | XMS | Encounter Summary ---
Demographics + + + | Address | [address] | | | [place] [address] | + + + | Home Phone [...] Providers + +------+ + | Care Nuclear Logging Engineer Name | Role | Phone | [...] as of this encounter Progress Notes Interface, Play Writer In - 10/30/2005 2:06 AM PDT [id number] GEOVANNI Barnes [id number] Clinic Date: 10/23/2005 Clinic: Ms. Meehan comes in today for followup of her abdominal CT. The CT is normal. We will follow her for abdominal pain. I will see her again in 3 months. If she has exacerbation, she can come earlier. I also gave her 30 tablets of 5 mg oxycodone for the pain. Chris Padgett M.D. CD / [id number] / [id number] / [id number] / Electronically signed by Chris Padgett 10-29-2005 10:10:39 AM documented i n this encounter Plan of Treatment Not on filedocumented as of this encounter Visit Diagnoses Not on filedocumented in this encounter"
--- OUTSIDE RECORDS SUMMARY | ~2020-01-25 | XMS | Encounter Summary ---
Demographics + + + | Address | [address] | | | [place] [address] | + + + | Home Phone [...] Providers + +------+ + | Care Qa Specialist Name | Role | Phone | + +------+ + | Petrona Thapa | PCP | | | MD | | | + +------+ + Reason for Visit + +--------+ + | Reason | Onset | Comments | | | Date | | + +--------+ + | TCM - Hosp FU | 03/17/ | | | | 2017 | | + +--------+ + Encounter Details +--------+ + + + + | Date | Type | Department | Care Team | Description | +--------+ + + + + | 03/17/ | Telephone | [facility] | Alanis, | TCM - Hosp FU | | 2017 | | MEDICINE [address] | MD Petrona | | | | | [place], | [address] [facility] | | | | | [place] [address] | [place] [address] | | | | | [phone] | [phone] | | | | | | | [...] Telephone Encounter - Erica Emerson RN - 03/23/2018 2:24 PM PDTI have received a EyeEm e call from Taniya at Dr. Paiz's office and they are working on getting home health started from nursing evaluation recommendation today. I have attempted follow up call to pt with vo MILI message. eleph one Encounter - Erica Emerson RN - 03/23/2018 9:19 AM PDTI received a call again today @ 9am to report she is having ongoing vertigo and experiences this over the last year she has addressed with Dr. Booth. She has used Physical Therapy for treatment of this successfull y previously and is asking if they could help again. She reports nurse is scheduled to arriv e at 9:30am today. I explained I would report to Dr. Mina's office and contacted them at and spoke with nurse Monahan to share concerns for Physical Therapy request and a H ome Health plan. I have provided my phone # for follow up [phone]. elephone Encounter - Erica Emerson RN - 01/2018 3:42 PM PDTI received a follow up call from patient today who reports she has nelly nued packing throughout the weekend and reports it's pretty hard to accomplish this task. Kevin rodriguez has spoke with office of Dr Paiz and has follow up mid March. She is suppose to have sebastian jenkins coming tomorrow to evaluate care. She reports bowels are moving after taking some Milk of Magnesia help. She reports enjoying some tomato soup with basil and son helps obtain groc eries. She reports still too weak to travel to our office for follow up appt. elephone Encounter - Erica Emerson RN - 03/18/2018 1:29 PM PDTI have returned a call to patient to report we have received records from [facility] and I have reached out to case therapist Devin to report dressing/ w ound care concerns that he reports working with Shalonda at [facility] and she has had an ev aluation yesterday. She receives 20 hours care support per month and they are also working w [facility] volunteer service to help with patient needs. Belinda reports she does have her son to he lp in evening for support. Belinda reports she does not want to go to SNF for care as would h eal better at home. I have encouraged her to come in for medical follow up when she is able to travel. She will call to set up appt. She reports no change in current medications.Shakir yo signed by Erica Emerson RN at 03/18/2018 1:50 PM PDTTelephone Encounter - Earl ndt, Erica Leonardo RN - 03/17/2018 3:27 PM PDTTCM follow up call received from call center-Patient reports had just discharged from [facility] on Mar. following a Bowel obstr uction surgery and has open wound area (which will require some packing) with efren still intact. She reports not enough help at home to support her current state of weakness and she had contacted the [facility] worker she reports Devin [phone] as her case therapist . She gives permission for release of records to discuss this and reports she will notify [facility] so we can obtain information to assist in follow up care. I have spoke with Thais cortes (nurse) with for coordination of care @[phone] (provided by Patient ). She h as contacted insurance group who provides Home follow up nursing/care support and will nelly nue follow up with patient. Patient had reported too weak at current time to travel here for follow up at present time. documented in this encounter Plan of Treatment +--------+---------+ + + + | Date | Type | Specialty | Care Team | Description | +--------+---------+ + + + | 02/15/ | Office | Internal Medicine | Alanis, | | | 2019 | Visit | | MD Petrona | | | | | | [address] | | | | | | [place] [address] | | | | | | [phone] | | | | | | | | +--------+---------+ + + + documented as of this encounter Visit Diagnoses Not on filedocumented in this encounter"
--- OUTSIDE RECORDS SUMMARY | ~2020-01-25 | XMS | Encounter Summary ---
Demographics + + + | Address | [address] | | | [place] [address] | + + + | Home Phone [...] + +------+ + | Care Manager Of Product Name | Role | Phone | + [...] | | [facility] at [facility] [address] | PADDED PRODUCTS INSPECTOR TRIMMER [address] | | | | | [address] [place] | [facility] [address] | | | | | for Health and | [place], [place] | | | | | [place] [address] | [address] | | | | | [place], [place] | [phone] | | | | | [address] | | | | | | [phone] | | | +--------+ + + + [...]
--- OUTSIDE RECORDS SUMMARY | ~2020-01-25 | XMS | Encounter Summary ---
Demographics + + + | Address | [address] | | | [place] [address] | + + + | Home Phone [...] Providers + +------+ + | Care Emergency Medicine Physician Name | Role | Phone | + +------+ + | Sulaiman Carrera MD | PCP | | + +------+ + Encounter Details +--------+ + + + + | Date | Type | Department | Care Team | Description | +--------+ + + + + | 02/08/ | Telephone | [facility] | Chris Padgett, | | | 2008 | | [place] [address] | [address] [facility] | | | | | Bethanie Mailcode: CH4S | [address] | | | | | Center for Health | [place], [place] | | | | | and Healing, | [address] | | | | | [place] [address], [address]th | [phone] | | | | | Floor [place], [place] | | | | | | [address] | | | | | | [phone] | | | +--------+ + + + [...]
--- OUTSIDE RECORDS SUMMARY | ~2020-01-25 | XMS | Encounter Summary ---
Demographics + + + | Address | [address] | | | [place] [address] | + + + | Home Phone [...] Providers + +------+ + | Care Cafeteria Cook Name | Role | Phone | [...]
--- OUTSIDE RECORDS SUMMARY | ~2020-01-25 | XMS | Encounter Summary ---
Demographics + + + | Address | [address] | | | [place] [address] | + + + | Home Phone [...] Team Providers + +------+ + | Care Cellophane Bath Mixer Name | Role | Phone | [...] | [address] | [place], [place] | | | | | [place], [place] | [address] | | | | | [address] | | | | | | [phone] | | | +--------+ + + + [...] | | | | | [place] [address] | | | | | | [phone] | | | | | | | | +--------+---------+ + + + documented as of this encounter Visit Diagnoses Not on filedocumented in this encounter"
--- OUTSIDE RECORDS SUMMARY | ~2020-01-25 | XMS | Encounter Summary ---
Demographics + + + | Address | [address] | | | [place] [address] | + + + | Home Phone [...] Providers + +------+ + | Care It Solutions Architect Name | Role | Phone [...] of this encounter Progress Notes Interface, Special Agent In - 02/17/2006 3:04 AM [facility] [place] [address] [place], [place] [address] or October 02, 2001 Pedrito Gutierrez M.D. [facility] [address] [place] [address] RE: BELINDA GALARZA MR #: [id number] Dear Dr. Gutierrez: I had the pleasure [...] the medical school and her home in [place], she agreed to follow up with you [...] questions or concerns. Sincerely, Issac Meeks M.D. call center team leader, Division of Endocrinology, Diabetes, and Clinical Trainer, Metabolic Disorders Clinic Ph#: [phone] [facility] / [id number] / [id number] / [id number] / C: 10/13/2001 praful [id number] signed by Interface, Special Agent In at 02/17/2006 3:04 AM [facility] umented in this encounter Plan of Treatment Not on filedocumented as of this encounter Visit Diagnoses Not on filedocumented in this encounter"
--- OUTSIDE RECORDS SUMMARY | ~2020-01-25 | XMS | Encounter Summary ---
Demographics + + + | Address | [address] | | | [place] [address] | + + + | Home Phone [...] Team Providers + +------+ + | Care Wharf Attendant Name | Role | Phone | [...] | Visit | [facility] [address] | PRESETTER OPERATOR | syndrome [address] | | | | [address] | | (Primary Dx); | | | | Physician's | | Fibromyalgia | | | | Pavilion, 4th Floor | | | | | | [place], [place] | | | | | | [address] | | | | | | [phone] | | | +--------+---------+ + + + [...] + + +--------+ + + | [place] INJECT TRIGGER | Procedures | Routin | [...]
--- OUTSIDE RECORDS SUMMARY | ~2020-01-25 | XMS | Encounter Summary ---
Demographics + + + | Address | [address] | | | [place] [address] | + + + | Home Phone [...] Providers + +------+ + | Care Director Pharmacy Services Name | Role | Phone | [...] floor | | | | | | [place], [place] | | | | | | [address] | | | | | | [phone] | | | +--------+------+ + + + [...] + | [facility] | [address] | [place] [address] | | | PATHOLOGY | [address] | | | + + + + + | [facility] | [address] | [place] [address] | | | PATHOLOGY | [address] [...] Performed At | + + + | [id number] Estimated GFR > 60 mL/min/1.73 sq m if non- | [facility] | | [facility] [id number] Estimated GFR > 60 mL/min/1.73 sq m if | DEPARTMENT OF | | [facility] GFR is estimated using the MDRD equation [...] + | [facility] DEPARTMENT | [address] | [place] [address] | | | PATHOLOGY | [address] | | | + + + + + | [facility] | [address] | [place] [address] | | | PATHOLOGY | [address] [...] | | | [facility] [place] [address] [facility] | | | [place] [address] | | + + + + + + + + | Performing | Address | City/State/Zipcode | Phone Number | | Organization | | | | + + + + + | [facility] | [address] | [place] [address] | | | LABORATORY | | | [...] | | | [facility] [place] [address] | | | [place] [address] | | + + + + + + + + | Performing | Address | City/State/Zipcode | Phone Number | | Organization | | | | + + + + + | [facility] | [address] | [place] [address] | | | LABORATORY | | | | + + + + + documented in this encounter Visit Diagnoses + + | Diagnosis | + + | Hypothyroidism Unspecified hypothyroidism | + + | Edema | + + documented in this encounter"
--- OUTSIDE RECORDS SUMMARY | ~2020-01-25 | XMS | Encounter Summary ---
Demographics + + + | Address | [address] | | | [place] [address] | + + + | Home Phone [...] + +------+ + | Care Certified Medical Assistant Name | Role | Phone | [...] [address] | | | | | [place], [place] | [place], [place] | | | | | [address] | [address] | | | | | [phone] | [phone] | | | | | | | [...]
--- OUTSIDE RECORDS SUMMARY | ~2020-01-25 | XMS | Encounter Summary ---
Demographics + + + | Address | [address] | | | [place] [address] | + + + | Home Phone [...] Providers + +------+ + | Care Sales Assistant Entertainment And Media Name | Role | Phone | [...] as of this encounter Progress Notes Interface, Guidance Consultant In - 12/11/2005 2:05 AM PDT [id number] GEOVANNI SKELTON J [id number] Clinic Date: 11/27/2005 Clinic: Rheumatology Primary Care [...] 6 months. Caitlin Rivera M.S., F.N.P. / [id number] / [id number] / [id number] / [id number] cc: Pedrito Gutierrez M.D. [address] [place] [address] Electronically signed by Caitlin Rivera 12-10-2005 09:27:21 AM documented i n this encounter Plan of Treatment Not on filedocumented as of this encounter Visit Diagnoses Not on filedocumented in this encounter"
--- OUTSIDE RECORDS SUMMARY | ~2020-01-25 | XMS | Encounter Summary ---
Demographics + + + | Address | [address] | | | [place] [address] | + + + | Home Phone [...] Team Providers + +------+ + | Care Text Transcriber Name | Role | Phone | + +------+ + | Petrona Thapa | PCP | | | MD | | | + +------+ + Encounter Details +--------+ + + + + | Date | Type | Department | Care Team | Description | +--------+ + + + + | 02/23/ | Hospital | [facility] | [place] | Right shoulder pain, | | 2018 | Encounter | [facility] | MD [address] | unspecified | | | | [address] | [place] [address] | chronicity | | | | [place] | [place] [address] | | | | | [address] | [phone] | | | | | [phone] | | | +--------+ + + + [...] | | | | | [place] [address] | | | | | | [phone] | | | | | | | [...]
--- OUTSIDE RECORDS SUMMARY | ~2020-01-25 | XMS | Encounter Summary ---
Demographics + + + | Address | [address] | | | [place] [address] | + + + | Home Phone [...] Team Providers + +------+ + | Care Chemotherapist Name | Role | Phone | + [...] | | | | | | | [place], [place] | | | | | | | [address] | | | | | | | Phone: | | | | | | | [phone] | | | | | | | Fax: | | | | | | | [phone] | +--------+--------+ + + + + Encounter [...] | | | Center at [facility] | [place], [place] | Metabolic syndrome | | | | [address] | [address] | X 250.80; Essential | | | | [address] | [phone] | hypertension 401.9; | | | | Phys[facility] | | Fibromyalgia | | | | Physician's | | syndrome 729.1 | | | | Pavilion [place], | | | | | | [place] [address] | | | | | | [phone] | | | +--------+---------+ + + + [...] by oral route once daily at bedti al as needed Oxycodone HCl (OXYCONTIN) 40 mg [...]
--- OUTSIDE RECORDS SUMMARY | ~2020-01-25 | XMS | Encounter Summary ---
Demographics + + + | Address | [address] | | | [place] [address] | + + + | Home Phone [...] Providers + +------+ + | Care Factory Supervisor Name | Role | Phone | [...] as of this encounter Progress Notes Interface, Vp Hr Diversity In - 01/12/2005 8:09 AM PDT [id number] GEOVANNI Barnes Clinic Date: 03/07/2004 Clinic: [facility] TELEPHONE CONVERSATION Subjective: Belinda contacted [...] cholelithiasis. She is welcome to come to [facility] for evaluation; however, given the distance of a 4-hour travel time, we found it would be more expeditious for her to be seen at her local hospital in [place]. The patient also agrees with this plan [...] additional followup as needed. Christie Kirkpatrick / [id number] / [id number] / [id number] / documented i n this encounter Plan of Treatment Not on filedocumented as of this encounter Visit Diagnoses Not on filedocumented in this encounter"
--- OUTSIDE RECORDS SUMMARY | ~2020-01-25 | XMS | Encounter Summary ---
Demographics + + + | Address | [address] | | | [place] [address] | + + + | Home Phone [...] Team Providers + +------+ + | Care Processor Inspector Name | Role | Phone | [...] + | 09/20/ | Telephone | [facility] | Miranda Lambert, | Medication Questions | | 2009 | | Pain Center at | ANP | | | | | [facility] | | | | | | [address] | | | | | | [facility] | | | | | | and Healing, | | | | | | Building | | | | | | Floor [place], [place] | | | | | | [address] | | | | | | [phone] | | | +--------+ + + + [...]
--- OUTSIDE RECORDS SUMMARY | ~2020-01-25 | XMS | Encounter Summary ---
Demographics + + + | Address | [address] | | | [place] [address] | + + + | Home Phone [...] Team Providers + +------+ + | Care Superior Court Clerk Name | Role | Phone | + +------+ + | Petrona Thapa | PCP | | | MD | | | + +------+ + Reason for Visit +---------+--------+ + | Reason | Onset | Comments | | | Date | | +---------+--------+ + | Blister | 01/23/ | | | | 2019 | | +---------+--------+ + Encounter Details +--------+ + + + + | Date | Type | Department | Care Team | Description | +--------+ + + + + | 01/23/ | Telephone | [facility] INTERNAL | Alanis, | Blister | | 2019 | | MEDICINE [address] | MD Petrona | | | | | [place], | [address] [facility] | | | | | [place] [address] | [place] [address] | | | | | [phone] | [phone] | | | | | | | [...] Telephone Encounter - Maggie Montoya LPN - 01/24/2020 5:26 PM PDTPatient notified of co mment/recommendations. Also advised to seek medical attention if wound showing signs of infe ction. Patient understands and accepts 20 5:27 PM PDTTelephone Encounter - Petrona Thapa MD - 01/24/2020 4:21 PM P DTTop aloe vera may be helpful. Electronically signed by Petrona Thapa MD at 0 01/24/2020 4:21 PM PDTTelephone Encounter - Susanna Boyce - 01/24/2020 2:09 PM PDTPatient called in waning to speak to the nurse. States she had a reaction to her swimsuit while danelle ng out in the sun. She had a blister the size of a silver dollar and she popped the blister. States its now purple, please advise. documented in this encounter Plan [...] | | | | | [place] [address] | | | | | | [phone] | | | | | | | | +--------+---------+ + + + documented as of this encounter Visit Diagnoses Not on filedocumented in this encounter"
--- OUTSIDE RECORDS SUMMARY | ~2020-01-25 | XMS | Encounter Summary ---
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 03/03/2008 Belinda Meehan is a 48 y.o. female [facility] Comprehensive Pain [...] ing reviewed by Dr Constantino SHEEHAN print color matcher. MRI of the brain and it was normal A Brief Pain Inventory and a pain drawing has be completed, which I reviewed. [employer] Brief Pain Inventory: (ten= worst possible pain [...] PhD TPI every 5-6 months with [facility] Rheumatology Hilda Saenz Review of Systems: Bones, [...] fam bijan history, or social history. [facility] Encorinology PRASHANT DE LA O ACNP ThuNovember [...] to discuss with her options at [facility] with, hopefully, coordinatio n of services. RTC [...] 300 mg) by oral route once daily hbufrtkoyx-pvuxfuolibrab-xfsnyshv (FIORICET) 50-325-40 mg Oral Tablet take 2 [...] DISK BULGE. Transcribed By: Armaan Rivera : [id number] : 1442 Approved By: Radiologist: Physical Examination: [...] with any concerns or questions. DELFINA MOLINA [facility] Mail code CH 4P [place] [facility] and [address] [address] Kristin Ailyn L - 03/03/20 [...]
--- OUTSIDE RECORDS SUMMARY | ~2020-01-25 | XMS | Encounter Summary ---
[...] Team Providers + +------+ + | Care Racetrack Steward Name | Role | Phone | [...] | 03/14/ | Refill | [facility] | Alanis, | Medication Refill | | 2018 | | MEDICINE [address] | MD Petrona | | | | | [place], | [address] [facility] | | | | | [place] [address] | [place] [address] | | | | | [phone] | [phone] | | | | | | | [...] [address] | | | | | | [place] [address] | | | | | | [phone] | | | | | | | | +--------+---------+ + + + documented as of this encounter Visit Diagnoses Not on filedocumented in this encounter"
--- OUTSIDE RECORDS SUMMARY | ~2020-01-25 | XMS | Encounter Summary ---
Demographics + + + | Address | [address] | | | [place] [address] | + + + | Home Phone [...] Team Providers + +------+ + | Care Room Attendants Name | Role | Phone | + [...] + | 08/12/ | Refill | [facility] | Alanis, | Medication Refill | | 2017 | | MEDICINE [address] | MD Petrona | | | | | [place], | [address] | | | | | [place] [address] | [place] [address] | | | | | [phone] | [phone] | | | | | | | [...] | | | | | [place] [address] | | | | | | [phone] | | | | | | | | +--------+---------+ + + + documented as of this encounter Visit Diagnoses Not on filedocumented in this encounter"
--- OUTSIDE RECORDS SUMMARY | ~2020-01-25 | XMS | Encounter Summary ---
Demographics + + + | Address | [address] | | | [place] [address] | + + + | Home Phone [...] Providers + +------+ + | Care Mechanic Assistant Name | Role | Phone | + +------+ + | Sulaiman Carrera MD | PCP | | + +------+ + Encounter Details +--------+ + + + + | Date | Type | Department | Care Team | Description | +--------+ + + + + | 10/05/ | Ancillary | Registration [address] | Ramon Ibarra, | | | 2006 | Registratio | [facility] [address] | [address] [facility] | | | | [address] | [address] Mailcode: RPB07 | [place], [place] | | | | | [place], [place] | [address] | | | | | [address] | [phone] | | | | | [phone] | | | +--------+ + + + [...]
--- OUTSIDE RECORDS SUMMARY | ~2020-01-25 | XMS | Encounter Summary ---
Demographics + + + | Address | [address] | | | [place] [address] | + + + | Home Phone [...] Team Providers + +------+ + | Care X [employer] Electronics Wiring Technician Name | Role | Phone | [...] | 2006 | TRANSCRIPTI | Faculty at [place] | [address] [facility] | QUESTIONNAIRE | | | ON | for Health and | [facility], [place] | | | | | Healing [address] | [address] | | | | | [facility] | [phone] | | | | | Health and Healing, | | | | | | [facility] | | | | | | [place], [place] | | | | | | [address] | | | | | | [phone] | | | +--------+ + + + [...]
--- OUTSIDE RECORDS SUMMARY | ~2020-01-25 | XMS | Encounter Summary ---
Demographics + + + | Address | [address] | | | [place] [address] | + + + | Home Phone [...] Team Providers + +------+ + | Care Flue Lining Dipper Name | Role | Phone | [...] as of this encounter Progress Notes Interface, Passenger Train Braker In - 01/11/2005 5:17 PM PDT [place] [facility] [address] [place] [address] or June 26, 2003 Pedrito Gutierrez M.D. [address] [place] [address] RE: BELINDA MEEHAN MR #: [id number] Dear Dr. Gutierrez: I had the pleasure of seeing your patient, Ms. Belinda Meehan, today in the [facility] Division of Rheumatology Clinic. She [...] Sincerely, Sesar Nash M.D. NURIA / SHARIF [id number] / [id number] / [id number] / [id number] cc: Kelley Alegre [address] [place] [address] FAX: [phone] signed by Interface, Passenger Train Braker In at 01/11/2005 5:17 PM PDTdocumented in this encounter Plan of Treatment Not on filedocumented as of this encounter Visit Diagnoses Not on filedocumented in this encounter"
--- OUTSIDE RECORDS SUMMARY | ~2020-01-25 | XMS | Encounter Summary ---
Demographics + + + | Address | [address] | | | [place] [address] | + + + | Home Phone [...] Providers + +------+ + | Care Belt Lacer Name | Role | Phone | + [...] + | 01/14/ | Refill | [facility] | Alanis, | Medication Refill | | 2017 | | MEDICINE [address] | MD [place] | | | | | [place], | [address] [facility] | | | | | [place] [address] | [place] [address] | | | | | [phone] | [phone] | | | | | | | [...] | | | | | [place] [address] | | | | | | [phone] | | | | | | | | +--------+---------+ + + + documented as of this encounter Visit Diagnoses Not on filedocumented in this encounter"
--- OUTSIDE RECORDS SUMMARY | ~2020-01-25 | XMS | Encounter Summary ---
Demographics + + + | Address | [address] | | | [place] [address] | + + + | Home Phone [...] Team Providers + +------+ + | Care Piece Goods Clerk Name | Role | Phone | + +------+ + | Petrona Thapa | PCP | | | MD | | | + +------+ + Reason for Visit + +--------+ + | Reason | Onset | Comments | | | Date | | + +--------+ + | Radiology | 12/28/ | | | Appointment | 2017 | | + +--------+ + Encounter Details +--------+ + + + + | Date | Type | Department | Care Team | Description | +--------+ + + + + | 12/28/ | Telephone | [facility] | Alanis, | Radiology | | 2017 | | MEDICINE [address] | MD [place] | Appointment | | | | [place], | [address] [facility] | | | | | [place] [address] | [place] [address] | | | | | [phone] | [phone] | | | | | | | [...] Notes Telephone Encounter - Juliane Elena - 12/28/2017 9:26 AM PDTPatient called stating she nguyen d ultrasound done for her kidney's and liver. Doctor should be getting sooner and wanted to let the doctor know. Nicole barrera in this encounter Plan of Treatment +--------+---------+ + + + | Date | Type | Specialty | Care Team | Description | +--------+---------+ + + + | 02/15/ | Office | Internal Medicine | Alanis, | | | 2019 | Visit | | MD [place] | | | | | | [address] [place] | | | | | | [place] [address] | | | | | | [phone] | | | | | | | | +--------+---------+ + + + documented as of this encounter Visit Diagnoses Not on filedocumented in this encounter"
--- OUTSIDE RECORDS SUMMARY | ~2020-01-25 | XMS | Encounter Summary ---
Demographics + + + | Address | [address] | | | [place] [address] | + + + | Home Phone [...] Team Providers + +------+ + | Care Gi Technician Name | Role | Phone | + +------+ + | Sulaiman Carrera MD | PCP | | + +------+ + Encounter Details +--------+ + + + + | Date | Type | Department | Care Team | Description | +--------+ + + + + | 08/26/ | Ancillary | Registration [id number] | | | | 2006 | Registratio | [facility] | | | | | n | Peterson Mailcode: [id number] | | | | | | [place], [place] | | | | | | [address] | | | | | | [phone] | | | +--------+ + + + [...]
--- OUTSIDE RECORDS SUMMARY | ~2020-01-25 | XMS | Encounter Summary ---
Demographics + + + | Address | [address] | | | [place] [address] | + + + | Home Phone [...] Providers + +------+ + | Care Sand Slinger Name | Role | Phone | + [...] [address] | | | | | | [place], [place] | | | | | | [address] | | | | | | [phone] | | | +--------+ + + + [...] | | | | | [place] [address] | | | | | | [phone] | | | | | | | | +--------+---------+ + + + documented as of this encounter Visit Diagnoses Not on filedocumented in this encounter"
--- OUTSIDE RECORDS SUMMARY | ~2020-01-25 | XMS | Encounter Summary ---
Demographics + + + | Address | [address] | | | [place] [address] | + + + | Home Phone [...] Providers + +------+ + | Care Java Mobile Developer Name | Role | Phone [...] as of this encounter Progress Notes Interface, Copywriter In - 10/15/2005 2:06 AM PDT [id number] [facility] Date: 09/18/2005 Clinic: Ms. [...] about a month. Chris Padgett M.D. / [id number] / [id number] / [id number] / [id number] Electronically signed by Chris Padgett 10-14-2005 08:13:46 AM documented i n this encounter Plan of Treatment Not on filedocumented as of this encounter Visit Diagnoses Not on filedocumented in this encounter"
--- OUTSIDE RECORDS SUMMARY | ~2020-01-25 | XMS | Encounter Summary ---
Demographics + + + | Address | [address] | | | [place] [address] | + + + | Home Phone [...] Providers + +------+ + | Care Dairy Farm Supervisor Name | Role | Phone | + +------+ + | Petrona Thapa | PCP | | | MD | | | + +------+ + Reason for Visit +--------+--------+ + | Reason | Onset | Comments | | | Date | | +--------+--------+ + | Other | 04/15/ | Pain clinic | | | 2018 | | +--------+--------+ + Encounter Details +--------+ + + + + | Date | Type | Department | Care Team | Description | +--------+ + + + + | 04/15/ | Telephone | [facility] INTER[facility] | Alanis, | Other (Pain clinic) | | 2018 | | MEDICINE [address] | MD [place] | | | | | [place], | [address] [facility] | | | | | [place] [address] | [place] [address] | | | | | [phone] | [phone] | | | | | | | [...] Telephone Encounter - Maggie Montoya LPN - 04/15/2019 1:22 PM PDTPatient states the pain c howie thinks she has dementia as she was having an off day and could not think. I informed kraig priest that no notes have been received from the pain clinic but could address this at her a ppointment on Thursday am 04/18/19. Patient understands and accepts. Left message on pain clinic's voicemail to fax last couple of chart notesElectronically sig yesenia by Maggie Montoya LPN at 04/15/2019 1:27 PM PDTTelephone Encounter - Frannie Melgar - 04/15/2019 9:05 AM PDTPatient called states she would like speak to nurse regarding h er visit at the pain clinic. Please call her at [phone]. documented in this encounter Plan of Treatment +--------+---------+ + + + | Date | Type | Specialty | Care Team | Description | +--------+---------+ + + + | 02/15/ | Office | Internal Medicine | Alanis, | | | 2019 | Visit | | MD [place] | | | | | | [address] [place] [address] [place] | | | | | | [place] [address] | | | | | | [phone] | | | | | | | | +--------+---------+ + + + documented as of this encounter Visit Diagnoses Not on filedocumented in this encounter"
--- OUTSIDE RECORDS SUMMARY | ~2020-01-25 | XMS | Encounter Summary ---
Demographics + + + | Address | [address] | | | [place] [address] | + + + | Home Phone [...] Providers + +------+ + | Care Special Assets Officer Name | Role | Phone | + +------+ + | Sulaiman Carrera MD | PCP | | + +------+ + Encounter Details +--------+ + + + + | Date | Type | Department | Care Team | Description | +--------+ + + + + | 03/19/ | Ancillary | Registration [id number] | | | | 2004 | Registratio | [facility] | | | | | n | [place] Mailcode: [id number] | | | | | | [place], [place] | | | | | | [address] | | | | | | [phone] | | | +--------+ + + + [...]
--- OUTSIDE RECORDS SUMMARY | ~2020-01-25 | XMS | Encounter Summary ---
Demographics + + + | Address | [address] | | | [place] [address] | + + + | Home Phone [...] Team Providers + +------+ + | Care At Risk Paraprofessional Name | Role | Phone | [...] | | | [facility] | [place], [place] | | | | | [address] | [address] | | | | | [address] | [phone] | | | | | [facility] | | | | | | Physician's | | | | | | Pavilion [place], | | | | | | [place] [address] | | | | | | [phone] | | | +--------+ + + + [...]
--- OUTSIDE RECORDS SUMMARY | ~2020-01-25 | XMS | Encounter Summary ---
Demographics + + + | Address | [address] | | | [place] [address] | + + + | Home Phone [...] + + | 10/16/ | Telephone | [facility] | Alanis, | Illness | | 2019 | | MEDICINE [address] | MD [place] | | | | | [place], | [address] [facility] | | | | | [place] [address] | [place] [address] | | | | | [phone] | [phone] | | | | | | | [...] | | | | | [place] [address] | | | | | | [phone] | | | | | | | | +--------+---------+ + + + documented as of this encounter Visit Diagnoses Not on filedocumented in this encounter
--- OUTSIDE RECORDS SUMMARY | ~2020-01-25 | XMS | Encounter Summary ---
Demographics + + + | Address | [address] | | | [place] [address] | + + + | Home Phone [...] Providers + +------+ + | Care Machine Carton Marker Name | Role | Phone | [...] | at [facility] [place] | [facility] | | | | | [address] | [place] [address] | | | | | [address] | | | | | | [place], 2nd floor | | | | | | [place], [place] | | | | | | [address] | | | | | | [phone] | | | +--------+ + + + [...]
--- OUTSIDE RECORDS SUMMARY | ~2020-01-25 | XMS | Encounter Summary ---
Demographics + + + | Address | [address] | | | [place] [address] | + + + | Home Phone [...] Providers + +------+ + | Care Filter Bed Placer Name | Role | Phone | + +------+ + PCP | Unavailable | + +------+ + Encounter Details +--------+ + + + + | Date | Type | Department | Care Team | Description | +--------+ + + + + | 07/31/ | Hospital | [facility] | Ruben Tobias | | | 2005 | Encounter | MED CTR SLEEP | MD Raji [address] | | | | | AM[place] [address] | [address] [facility] | | | | | [place], [place] | [place] [address] | | | | | [address] | [phone] | | | | | [phone] | | | +--------+ + + + [...] | | | | | [place] [address] | | | | | | [phone] | | | | | | | | +--------+---------+ + + + documented as of this encounter Visit Diagnoses Not on filedocumented in this encounter"
--- OUTSIDE RECORDS SUMMARY | ~2020-01-25 | XMS | Encounter Summary ---
Demographics + + + | Address | [address] | | | [place] [address] | + + + | Home Phone [...] Providers + +------+ + | Care Contract Modeler Name | Role | Phone | [...] Acute pain | Emmy-Tajt | [address] | | | | | of right | i, | [place], | | | | | shoulder | [place] | [place] | | | | | Procedures | , MD [address] | [address] | | | | | MRI Shoulder | [address] | Phone: | | | | | Right wo | [place], | [phone] | | | | | Contrast | [place] | Fax: | | | | | | [address] | [phone] | | | | | | Phone: | | | | | | | [phone] | | | | | | | Fax: | | | | | | | [phone] | | +--------+--------+ + + + + [...] Acute pain | Emmy-Tajt | [address] | | | | | of right | i, | [place], | | | | | shoulder | [place] | [place] | | | | | Procedures | , [address] | [address] | | | | | MRI Shoulder | [address] | Phone: | | | | | Right wo | [place], | [phone] | | | | | Contrast | [place] | Fax: | | | | | | [address] | [phone] | | | | | | Phone: | | | | | | | [phone] | | | | | | | Fax: | | | | | | | [phone] | | +--------+--------+ + + + + Encounter Details +--------+ + + + + | Date | Type | Department | Care Team | Description | +--------+ + + + + | 02/17/ | Hospital | [facility] | Emmy-Kamlesh, | Acute pain of right | | 2018 | Encounter | MED CTR MRI [address] | MD [place] | shoulder | | | | [address] [place], | [address] [place] | | | | | [place] [address] | [place] [address] | | | | | [phone] | | | | | | | [...] | | | | | [place] [address] | | | | | | [phone] | | | | | | | [...] + + | Performing | Address | City/State/[facility] | Phone Number | | Organization | | | | + +---------+ + + | [facility] | | | | + +---------+ + + documented in this encounter Visit Diagnoses + + | Diagnosis | + + | Acute pain of right shoulder | + + documented in this encounter"
--- OUTSIDE RECORDS SUMMARY | ~2020-01-25 | XMS | Encounter Summary ---
Demographics + + + | Address | [address] | | | [place] [address] | + + + | Home Phone [...] Providers + +------+ + | Care Maintenance Controller Name | Role | Phone | [...] | 12/18/ | Refill | [facility] [place] [facility] | Alanis, | Medication Refill | | 2019 | | MEDICINE [address] | MD [place] | | | | | [place], | [address] [place] | | | | | [place] [address] | [place] [address] | | | | | [phone] | [phone] | | | | | | | [...] | | | | | [place] [address] | | | | | | [phone] | | | | | | | | +--------+---------+ + + + documented as of this encounter Visit Diagnoses Not on filedocumented in this encounter"
--- OUTSIDE RECORDS SUMMARY | ~2020-01-25 | XMS | Encounter Summary ---
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 Diagnosis: Solsberry I: 1. (296.32) Major depressive disorder, recurrent, moderate. 2. (309.24) Adjustment disorder with anxiety. 3. (307.89) Chronic pain disorder associated with both psychological factors and a gene ral medical condition. Solsberry II: Deferred Solsberry III: abdominal pain, migraine headache, low back pain. Solsberry IV: low finances Solsberry V: GAF 50 Plan: Return in 2 weeks. Check pacing, relaxation, activity, distraction. Check managing Pain.. . book. Continue cognitive/behavioral therapy. Total time spent with patient was approximately 45 minutes. LUKASZ CHARLES [facility] [address] [place] [address] And [facility] [address] [place] [address] documented in this encount er Plan of [...]
--- OUTSIDE RECORDS SUMMARY | ~2020-01-25 | XMS | Encounter Summary ---
Demographics + + + | Address | [address] | | | [place] [address] [...] Providers + +------+ + | Care Finance Officer Name | Role | Phone | [...]
--- OUTSIDE RECORDS SUMMARY | ~2020-01-25 | XMS | Encounter Summary ---
Demographics + + + | Address | [address] | | | [place] [address] | + + + | Home Phone [...] + +------+ + | Care Information Systems Technician Name | Role | Phone [...] PHYSIATRY [address] | MD [address] | | | | | [address] | [place] | | | | | [place], [place] | [address] | | | | | [address] | | | | | | [phone] | | | +--------+ + + + [...] | | | | | [place] [address] | | | | | | [phone] | | | | | | | | +--------+---------+ + + + documented as of this encounter Visit Diagnoses Not on filedocumented in this encounter"
--- OUTSIDE RECORDS SUMMARY | ~2020-01-25 | XMS | Encounter Summary ---
Demographics + + + | Address | [address] | | | [place] [address] | + + + | Home Phone [...] Providers + +------+ + | Care Dairy Bar Manager Name | Role | Phone | [...] [id number] | | | | | | [place], [place] | | | | | | [address] | | | | | | [phone] | | | +--------+ + + + [...]
--- OUTSIDE RECORDS SUMMARY | ~2020-01-25 | XMS | Encounter Summary ---
Demographics + + + | Address | [address] | | | [place] [address] | + + + | Home Phone [...] Providers + +------+ + | Care Timber Skidder Name | Role | Phone | + [...]
--- OUTSIDE RECORDS SUMMARY | ~2020-01-25 | XMS | Encounter Summary ---
Demographics + + + | Address | [address] | | | [place] [address] | + + + | Home Phone [...] | | | [address] | [place] [address] | | | | | | [place], | Phone: | | | | | | [place] | [phone] | | | | | | [address] | Fax: | | | | | | Phone: | [phone] | | | | | | [phone] | | | | | | | Fax: | | | | | | | [phone] | | +--------+ + + + + [...] + + | 11/18/ | Telephone | [facility] | Alanis, | Vertigo (Recurrent) | | 2017 | | [facility] [address] | MD [place] | | | | | [place], | [address] [place] | | | | | [place] [address] | [place] [address] | | | | | [phone] | [phone] | | | | | | | [...] like a c all back to advise, [phone]. 11 :59 AM PDTdocumented in this encounter [...] [place] | | | | | | [place] [address] | | | | | | [phone] | | | | | | | | +--------+---------+ + + + + + +--------+ + + | Name | Type | Priori | Associated Diagnoses | Order Schedule | | | | ty | | | + + +--------+ + + | * [place] | Outpatient | Routin | Vertigo [...]
--- OUTSIDE RECORDS SUMMARY | ~2020-01-25 | XMS | Encounter Summary ---
Demographics + + + | Address | [address] | | | [place] [address] | + + + | Home Phone [...] Providers + +------+ + | Care Delivery Analyst Name | Role | Phone | [...] [id number] | | | | | | [place], [place] | | | | | | [address] | | | | | | [phone] | | | +--------+ + + + [...]
--- OUTSIDE RECORDS SUMMARY | ~2020-01-25 | XMS | Encounter Summary ---
Demographics + + + | Address | [address] | | | [place] [address] | + + + | Home Phone [...] Providers + +------+ + | Care Geospatial Analyst Name | Role | Phone | + +------+ + | [place] Thapa | PCP | | | MD | | | + +------+ + Encounter Details +--------+ + + + + | Date | Type | Department | Care Team | Description | +--------+ + + + + | 07/09/ | Abstract | [facility] | Alanis, | | | 2018 | | MEDICINE [address] | MD [place] | | | | | [place], | [address] [facility] | | | | | [place] [address] | [place] [address] | | | | | [phone] | [phone] | | | | | | | [...] | | | | | [place] [address] | | | | | | [phone] | | | | | | | [...]
--- OUTSIDE RECORDS SUMMARY | ~2020-01-25 | XMS | Encounter Summary ---
Demographics + + + | Address | [address] | | | [place] [address] | + + + | Home Phone [...] + +------+ + | Care Natural Gas Plant Technician Name | Role | Phone [...] as of this encounter Progress Notes Interface, Forklift Driver In - 08/14/2005 2:05 AM PST [id number] [facility] Date: 08/06/2005 Clinic: Rheumatology [...] of antiinflammatory diet that one of the hardener helper in [place] has written a book about, and I have had a patient do extremely well with it in terms of her IBS and fibromyalgia pain and fatigue. Belinda is interested in this and will pursue it. 3. I have given her a lot of articles that she can pass onto her physicians in [place]. She would like somebody there to learn [...] 4 months. Caitlin Rivera M.S., F.N.P. / [id number] / [id number] / [id number] / [id number] cc: Pedrito Gutierrez M.D. [address] [place] [address] Electronically signed by Caitlin Rivera 08-13-2005 03:37:47 PM documented i n this encounter Plan of Treatment Not on filedocumented as of this encounter Visit Diagnoses Not on filedocumented in this encounter"
--- OUTSIDE RECORDS SUMMARY | ~2020-01-25 | XMS | Encounter Summary ---
Demographics + + + | Address | [address] | | | [place] [address] | + + + | Home Phone [...] Team Providers + +------+ + | Care Jigmaker Name | Role | Phone | + [...] | | | central | [address] | [facility] | | | | | origin, | [address] | [address] | | | | | unspecified | [place] | AVE | | | | | laterality | [place] | [place] | | | | | Procedures | [address] | [address] | | | | | MRI Brain w | Phone: | Phone: | | | | | wo Contrast | [phone] | [phone] | | | | | IN MRI | Fax: | Fax: | | | | | BRAIN COMBO | [phone] | [phone] | +--------+--------+ + + + + Reason [...] | Medicare/Nik | MD [address] | [place], | | | | | escu | [address] | [place] [address] | | | | | Procedures | [place], | Phone: | | | | | OFFICE VISIT | [place] | [phone] | | | | | REGULAR | [address] | Fax: | | | | | | Phone: | [phone] | | | | | | [phone] | | | | | | | Fax: | | | | | | | [phone] | | +--------+--------+ + + + + Encounter Details +--------+---------+ + + + | Date | Type | Department | Care Team | Description | +--------+---------+ + + + | 10/18/ | Office | [facility] | Ulysses Dsouza MD | Vertigo of mahnomen | | 2015 | Visit | OTOLARYNGOLOGY [address] | [address] | origin, unspecified | | | | [address] | [address] [place] | laterality (Primary | | | | [place] | [place] [address] | Dx) | | | | [address] | [phone] | | | | | [phone] | | | +--------+---------+ + + + [...] MD - 10/18/2014 10:50 AM PDT [facility] OTOLARYNGOLOGY [address] [place] [address] OFFICE NOTE ULYSESS DSOUZA MD Patient: BELINDA MEEHAN Admitting: MR #: [id number] LOC: PT TYPE: Adm Date: 10/18/2014 : [...] present. It is very disconcerting that the meheren ent is falling down and causing injuries [...] Transcribed on 10/18/2014 11:06:48 by cmv job# [id number] Confirmation #: [id number] signed by Ulysses Dsouza MD at 10/18/2014 12:48 PM PDT Ulysses Dsouza MD - 10/18/2014 10:45 AM PDTSee dictation # [id number] signed by Ulysses Dsouza MD at 10/18/2014 10:51 AM PDTdocumented in th is encounter Plan of Treatment +--------+---------+ + + + | Date | Type | Specialty | Care Team | Description | +--------+---------+ + + + | 02/15/ | Office | Internal Medicine | Alanis, | | | 2019 | Visit | | MD [place] | | | | | | [address] [facility] [place] | | | | | | [place] [address] | | | | | | [phone] | | | | | | | [...]
--- OUTSIDE RECORDS SUMMARY | ~2020-01-25 | XMS | Encounter Summary ---
Demographics + + + | Address | [address] | | | [place] [address] | + + + | Home Phone [...] Providers + +------+ + | Care Career And Technology Education Teacher Name | Role | Phone | + +------+ + PCP | Unavailable | + +------+ + Encounter Details +--------+ + + + + | Date | Type | Department | Care Team | Description | +--------+ + + + + | 01/02/ | Telephone | [facility] | Kenisha Melton, | | | 2005 | | [place] [address] | [facility] [address] | | | | | [address] | [address] | | | | | Mailcode: [id number] | [place], [place] | | | | | [facility] | [address] | | | | | [place], [place] | [phone] | | | | | [address] | | | | | | [phone] | | | +--------+ + + + [...]
--- OUTSIDE RECORDS SUMMARY | ~2020-01-25 | XMS | Encounter Summary ---
Demographics + + + | Address | [address] | | | [place] [address] | + + + | Home Phone [...] Providers + +------+ + | Care Safety Equipment Testing Specialist Name | Role | Phone [...] | | | Clinical Nutrition | [place], [place] | | | | | [address] | [address] | | | | | Loop Mailcode: [id number] | [phone] | | | | | Outpatient Clinic | | | | | | [facility], | | | | | | [place] [address] | | | | | | [phone] | | | +--------+ + + + [...]
--- OUTSIDE RECORDS SUMMARY | ~2020-01-25 | XMS | Encounter Summary ---
Demographics + + + | Address | [address] | | | [place] [address] | + + + | Home Phone [...] Team Providers + +------+ + | Care Central Office Mechanic Name | Role | Phone | [...] + | 09/03/ | Telephone | [facility] | Emmy-Kamlesh, | Fall; Hip Pain | | 2018 | | MEDICINE [address] | MD Petrona | | | | | [place], | [address] [place] | | | | | [place] [address] | [place] [address] | | | | | [phone] | [phone] | | | | | | | [...] get a xray. She can be reached [phone]. 10:3 0 AM PDTdocumented in this encounter Plan of Treatment +--------+---------+ + + + | Date | Type | Specialty | Care Team | Description | +--------+---------+ + + + | 02/15/ | Office | Internal Medicine | Alanis, | | | 2019 | Visit | | MD Petrona | | | | | | [address] [place] [address] [place] | | | | | | [place] [address] | | | | | | [phone] | | | | | | | | +--------+---------+ + + + documented as of this encounter Visit Diagnoses Not on filedocumented in this encounter"
--- OUTSIDE RECORDS SUMMARY | ~2020-01-25 | XMS | Encounter Summary ---
Demographics + + + | Address | [address] | | | [place] [address] | + + + | Home Phone [...] + +------+ + | Care Senior Director Name | Role | Phone | + +------+ + PCP | Unavailable | + +------+ + Encounter Details +--------+ + + + + | Date | Type | Department | Care Team | Description | +--------+ + + + + | 08/09/ | Results | | Other, Faculty | | | 2002 | Only | | [phone] | | +--------+ + + + + [...] + | Ordered by [facility] | [facility] | | | DEPARTMENT OF | | | PATHOLOGY | + + + + + + + + | Performing | Address | City/State/Zipcode | Phone Number | | Organization | | | | + + + + + | [facility] DEPARTMENT OF | [facility] | [place] [address] | | | PATHOLOGY | [address] | | | + + + + + | [facility] DEPARTMENT OF | [facility] | [place] [address] | | | PATHOLOGY | [address] | | | + + + + + documented in this encounter Visit Diagnoses Not on filedocumented in this encounter"
--- OUTSIDE RECORDS SUMMARY | ~2020-01-25 | XMS | Encounter Summary ---
Demographics + + + | Address | [address] | | | [place] [address] | + + + | Home Phone [...] as of this encounter Progress Notes Interface, Fishery Division Chief In - 01/12/2005 12:26 AM PDT [id number] [facility] Date: 07/25/2004 Clinic: Rheumatology [...] weight that she has lost. At the [employer], a study was presented [...] 6 months. Caitlin Rivera M.S., F.N.P. / [id number] / [id number] / [id number] / [id number] cc: Pedrito Gutierrez M.D. [address] [facility] [place] [address] Electronically signed by Caitlin Rivera 07-31-2004 12:02:37 PM documented i n this encounter Plan of Treatment Not on filedocumented as of this encounter Visit Diagnoses Not on filedocumented in this encounter"
--- OUTSIDE RECORDS SUMMARY | ~2020-01-25 | XMS | Encounter Summary ---
Demographics + + + | Address | [address] | | | [place] [address] | + + + | Home Phone [...] Team Providers + +------+ + | Care Psych Social Worker Name | Role | Phone [...] as of this encounter Progress Notes Interface, Hospital Education Coordinator In - 01/11/2005 6:26 PM PDT [...] blindness. History was obtained from the patient, [facility] medical records, and two magnetic resonance scans [...] any point. She has been seen her medical doctor nuclear medicine in [facility], Dr. Lc Renteria, who by her [...] and fibromyalgia. SOCIAL HISTORY: Patient lives in [facility] with her eldest son. She supports [...] acute distress. She does have a right-sided [place] Islander crutch which she uses to enter and [...] biceps, triceps, wrist extensors, finger extensors, hand narrow gauge engineer, hip flexors and extensors, and ankle, plantar, and dorsiflexors as well as knee flexors and extensors. There is no pronator drift. Reflexes are 2+ and symmetrical at the biceps, triceps, brachioradialis, patellar, and ankle regions. Toes are downgoing to plantar stimulation. Light touch and tuning fork is within normal limits in the lower extremities. Ycrmbb-sv-icdt and fine finger movements are within normal [...] CARTER M.D. [facility] [address] [facility]. [facility] [id number] signed by Interface, Hospital Education Coordinator In at 2004 6:26 PM PDTdocumented in this encounter Plan of Treatment Not on filedocumented as of this encounter Visit Diagnoses Not on filedocumented in this encounter"
--- OUTSIDE RECORDS SUMMARY | ~2020-01-25 | XMS | Encounter Summary ---
Demographics + + + | Address | [address] | | | [place] [address] | + + + | Home Phone [...] Providers + +------+ + | Care Cement Finisher Helper Name | Role | Phone | [...] as of this encounter Progress Notes Byron, Cable Television Line Technician In - 01/12/2005 6:46 AM PDTClinic Date: [...] months. Chris Padgett M.D. CD / HS [id number] / [id number] / [id number] / Tdocumented in this encounter Plan of Treatment Not on filedocumented as of this encounter Visit Diagnoses Not on filedocumented in this encounter"
--- OUTSIDE RECORDS SUMMARY | ~2020-01-25 | XMS | Encounter Summary ---
Demographics + + + | Address | [address] | | | [place] [address] | + + + | Home Phone [...] Providers + +------+ + | Care Belt Repairer Name | Role | Phone | [...] | | | | | [place], | | | | | | [place] [address] | | | +--------+ + + + [...] | Patient: BELINDA MEEHAN J Med Rec: [id number] Sex F Bdate: 1960 | | Date/Time Data | | Entered Into [facility] | | Anesth PostOp | | Surgery Date [id number] 12/09/04 10:30 | | [id number] 11/23/03 10:57 | | Anesthesiologist SYEDA ANDREWS [...]
--- OUTSIDE RECORDS SUMMARY | ~2020-01-25 | XMS | Encounter Summary ---
Demographics + + + | Address | [address] | | | [place] [address] | + + + | Home Phone [...] Providers + +------+ + | Care Stage Driver Name | Role | Phone | + +------+ + | Sulaiman Carrera MD | PCP | | + +------+ + Encounter Details +--------+ + + + + | Date | Type | Department | Care Team | Description | +--------+ + + + + | 08/09/ | Hospital | Diagnostic Imaging | | | | 2013 | Encounter | Services at [facility] | | | | | | [address] | | | | | | [place] | | | | | | [facility], [address] [place] [address] | | | | | | [place], [place] | | | | | | [address] | | | | | | [phone] | | | +--------+ + + + [...] | | + +---------+ + + | [facility] DEPARTMENT OF | | | | [...]
--- OUTSIDE RECORDS SUMMARY | ~2020-01-25 | XMS | Encounter Summary ---
Demographics + + + | Address | [address] | | | [place] [address] | + + + | Home Phone [...] Providers + +------+ + | Care Lean Manufacturing Specialist Name | Role | Phone | [...] | | | [facility] | [place], [place] | | | | | [address] | [address] | | | | | [address] | [phone] | | | | | [facility]ician[facility] | | | | | | Physician's | | | | | | Pavilion [place], | | | | | | [place] [address] | | | | | | [phone] | | | +--------+--------+ + + + [...]
--- OUTSIDE RECORDS SUMMARY | ~2020-01-25 | XMS | Encounter Summary ---
Demographics + + + | Address | [address] | | | [place] [address] | + + + | Home Phone [...] + +------+ + | Care Public Health Doctor Name | Role | Phone | [...] | | | | Clinical Nutrition | [place], [place] | | | | | [address] | [address] | | | | | Loop Mailcode: OPC5 | [phone] | | | | | Outpatient Clinic | | | | | | [facility] | | | | | | [place] [address] | | | | | | [phone] | | | +--------+ + + + [...] Blood Test performed by | | | [facility]. | | + + + + + + + + | Performing | Address | City/State/Zipcode | Phone Number | | Organization | | | | + + + + + | [facility] | [address] | [place] [address] | | | LABORATORY | | | [...] + + + | [facility] | [address] | [place] [address] | | | LABORATORY | | | | + + + + + documented in this encounter Visit Diagnoses Not on filedocumented in this encounter"
--- OUTSIDE RECORDS SUMMARY | ~2020-01-25 | XMS | Encounter Summary ---
Demographics + + + | Address | [address] | | | [place] [address] | + + + | Home Phone [...] + + | 10/16/ | Telephone | [facility] | Alanis, | Wrist Pain | | 2017 | | MEDICINE [address] | MD Petrona | | | | | [place], | [address] [facility] | | | | | [place] [address] | [place] [address] | | | | | [phone] | [phone] | | | | | | | [...] order an xray and send it to [facility] if possible. Please advise. [phone] signed by Malissa Redd at 10/16/2017 8:45 [...] | | | | | [place] [address] | | | | | | [phone] | | | | | | | | +--------+---------+ + + + documented as of this encounter Visit Diagnoses Not on filedocumented in this encounter"
--- OUTSIDE RECORDS SUMMARY | ~2020-01-25 | XMS | Encounter Summary ---
Demographics + + + | Address | [address] | | | [place] [address] | + + + | Home Phone [...] Refill Request | | 2007 | | [place] [address] | [address] | (Sucralfate) | | | | Beth[place] Mailcode: CH4S | [facility] | | | | | [facility] | [place], [place] | | | | | and Healing, | [address] | | | | | [facility] | [phone] | | | | | Floor [place], [place] | | | | | | [address] | | | | | | [phone] | | | +--------+--------+ + + + [...]
--- OUTSIDE RECORDS SUMMARY | ~2020-01-25 | XMS | Encounter Summary ---
Demographics + + + | Address | [address] | | | [place] [address] | + + + | Home Phone [...] Team Providers + +------+ + | Care Ammunition Supervisor Name | Role | Phone | [...] Pavilion | | | | | | [place], [place] | | | | | | [address] | | | | | | [phone] | | | +--------+ + + + [...]
--- OUTSIDE RECORDS SUMMARY | ~2020-01-25 | XMS | Encounter Summary ---
Demographics + + + | Address | [address] | | | [place] [address] | + + + | Home Phone [...] + +------+ + | Care Fish Hatchery Supervisor Name | Role | Phone [...] Mychal Kovacs | | | | | [facility] | [place], [place] | | | | | [address] | [address] | | | | | [address] | [phone] | | | | | Physician's Pavilion | | | | | | Physician's | | | | | | Pavilion [place], | | | | | | [place] [address] | | | | | | [phone] | | | +--------+ + + + [...]
--- OUTSIDE RECORDS SUMMARY | ~2020-01-25 | XMS | Encounter Summary ---
Demographics + + + | Address | [address] | | | [place] [address] | + + + | Home Phone [...] Providers + +------+ + | Care Laboratory Mechanical Technician Name | Role | Phone | [...] | | | [facility] | [place], [place] | | | | | [address] | [address] | | | | | [address] | [phone] | | | | | Physician's | | | | | | Pavilion, [facility] floor | | | | | | [place], [place] | | | | | | [address] | | | | | | [phone] | | | +--------+ + + + [...] | | | | | performed at [facility] | | | | | | [facility] [...] + + + | [facility] | [address] | [place] [address] | | | LABORATORY | | | [...] | + + + + + | [facility] | [address] | [place] [address] | | | LABORATORY | | | [...] | [facility] | | | | | [facility] | | | | | | Laboratories. | | | | + + + + + + + + | Specimen | + + | | + + + + + + + | Performing | Address | City/State/Zipcode | Phone Number | | Organization | | | | + + + + + | [facility] | [address] | [place] [address] | | | LABORATORY | | | [...] | | | SERUM | performed by [facility] | | | | | | [facility] | | | | | | Laboratories. | | | | + + + + + + + + | Specimen | + + | | + + + + + + + | Performing | Address | City/State/Zipcode | Phone Number | | Organization | | | | + + + + + | [facility] | [address] | [place] [address] | | | LABORATORY | | | [...] [place] DEPARTMENT OF | [address] [facility] | [place] [address] | | | PATHOLOGY | [address] | | | + + + + + | [place] DEPARTMENT OF | [address] [facility] | [place] [address] | | | PATHOLOGY | [address] [...] + + + | [facility] | [facility] [facility] | [place] [address] | | | PATHOLOGY | [address] | | | + + + + + | [facility] | [facility] | [place] [address] | | | PATHOLOGY | [address] | | | + + + + + documented in this encounter Visit Diagnoses Not on filedocumented in this encounter"
--- OUTSIDE RECORDS SUMMARY | ~2020-01-25 | XMS | Encounter Summary ---
Demographics + + + | Address | [address] | | | [place] [address] | + + + | Home Phone [...] Providers + +------+ + | Care General Repair Mechanic Name | Role | Phone | [...] [address] | | | | | [place] | [place] | | | | | [address] | [address] | | | | | [phone] | [phone] | | | | | | | [...]
--- OUTSIDE RECORDS SUMMARY | ~2020-01-25 | XMS | Encounter Summary ---
Demographics + + + | Address | [address] | | | [place] [address] | + + + | Home Phone [...] Providers + +------+ + | Care Cloth Wire Weaver Name | Role | Phone | [...]
--- OUTSIDE RECORDS SUMMARY | ~2020-01-25 | XMS | Encounter Summary ---
Demographics + + + | Address | [address] | | | [place] [address] | + + + | Home Phone [...] Team Providers + +------+ + | Care Berry Grower Name | Role | Phone | [...] [place] | | | | | | [address] | | | +--------+ + + + [...]
--- OUTSIDE RECORDS SUMMARY | ~2020-01-25 | XMS | Encounter Summary ---
Demographics + + + | Address | [address] | | | [place] [address] | + + + | Home Phone [...] + +------+ + | Care Embedded Software Engineer Name | Role | Phone [...] + + | 10/05/ | Telephone | [facility] | Alanis, | Appointment Question | | 2018 | | [address] | MD Petrona | | | | | [place], | [address] [place] | | | | | [place] [address] | [place] [address] | | | | | [phone] | [phone] | | | | | | | [...] . Electronically si gned by Adriana Leonardo Sakshi at 10/05/2018 3:00 PM PDTdocumented in this encounter Plan of Treatment +--------+---------+ + + + | Date | Type | Specialty | Care Team | Description | +--------+---------+ + + + | 02/15/ | Office | Internal Medicine | Alanis, | | | 2019 | Visit | | MD Petrona | | | | | | [facility] [address] | | | | | | [place] [address] | | | | | | [phone] | | | | | | | | +--------+---------+ + + + documented as of this encounter Visit Diagnoses Not on filedocumented in this encounter"
--- OUTSIDE RECORDS SUMMARY | ~2020-01-25 | XMS | Encounter Summary ---
Demographics + + + | Address | [address] | | | [place] [address] | + + + | Home Phone [...] Team Providers + +------+ + | Care Law Enforcement Instructor Name | Role | Phone | [...] as of this encounter Progress Notes Interface, Land Examiner In - 08/14/2005 2:05 AM PST [id number] [facility] Date: 08/06/2005 Clinic: Rheumatology [...] of antiinflammatory diet that one of the metalworking specialist in [place] has written a book about, and I have had a patient do extremely well with it in terms of her IBS and fibromyalgia pain and fatigue. Belinda is interested in this and will pursue it. 3. I have given her a lot of articles that she can pass onto her physicians in [place]. She would like somebody there to learn [...] 4 months. Caitlin Rivera M.S., F.N.P. / [id number] / [id number] / [id number] / [id number] cc: Pedrito Gutierrez M.D. [address] [place] [address] Electronically signed by Caitlin Rivera 08-13-2005 03:37:47 PM documented i n this encounter Plan of Treatment Not on filedocumented as of this encounter Visit Diagnoses Not on filedocumented in this encounter"
--- OUTSIDE RECORDS SUMMARY | ~2020-01-25 | XMS | Encounter Summary ---
Demographics + + + | Address | [address] | | | [place] [address] | + + + | Home Phone [...] Providers + +------+ + | Care Network Project Manager Name | Role | Phone | + +------+ + | Maria Esther Cintron MD | PCP | | + +------+ + Encounter Details +--------+ + + + + | Date | Type | Department | Care Team | Description | +--------+ + + + + | 02/16/ | Telephone | Digestive Health | Chris Padgett, | | | 2007 | | [place] [address] | [address] [facility] | | | | | [place] Mailcode: CH4S | [address] | | | | | Center for Health | [place], [place] | | | | | and Healing, | [address] | | | | | Building , 6th | [phone] | | | | | Floor [place], [place] | | | | | | [address] | | | | | | [phone] | | | +--------+ + + + [...]
--- OUTSIDE RECORDS SUMMARY | ~2020-01-25 | XMS | Encounter Summary ---
Demographics + + + | Address | [address] | | | [place] [address] | + + + | Home Phone [...] Providers + +------+ + | Care Needle Straightener Name | Role | Phone | [...] as of this encounter Progress Notes Interface, Math And Science Instructor In - 08/30/2005 2:07 AM PST [id number] [facility] Date: 08/11/2005 Clinic: Colorectal [...] Rebekah Navas M.D. Chris Padgett M.D. / [id number] / [id number] / [id number] / [id number] E: 08/14/2005 [email or web address] cc: Dr. Sarah De Jesus, [place] Electronically signed by Chris Padgett 08-29-2005 03:28:30 PM documented i n this encounter Plan of Treatment Not on filedocumented as of this encounter Visit Diagnoses Not on filedocumented in this encounter"
--- OUTSIDE RECORDS SUMMARY | ~2020-01-25 | XMS | Encounter Summary ---
Demographics + + + | Address | [address] | | | [place] [address] | + + + | Home Phone [...] Providers + +------+ + | Care Form Tamping Machine Operator Name | Role | Phone | + +------+ + | Sulaiman Carrera MD | PCP | | + +------+ + Encounter Details +--------+ + + + + | Date | Type | Department | Care Team | Description | +--------+ + + + + | 06/12/ | Telephone | Dig[facility]ive Health | Chris Padgett, | | | 2008 | | [place] [address] | [address] [facility] | | | | | [place] Mailcode: CH4S | [address] | | | | | Center for Health | [place], [place] | | | | | and Healing, | [address] | | | | | [facility] 1, 6th | [phone] | | | | | Floor [place], [place] | | | | | | [address] | | | | | | [phone] | | | +--------+ + + + [...]
--- OUTSIDE RECORDS SUMMARY | ~2020-01-25 | XMS | Encounter Summary ---
Demographics + + + | Address | [address] | | | [place] [address] | + + + | Home Phone [...] Providers + +------+ + | Care Nurses Superintendent Name | Role | Phone | + +------+ + | Petrona Thapa | PCP | | | MD | | | + +------+ + Encounter Details +--------+ + + + + | Date | Type | Department | Care Team | Description | +--------+ + + + + | 12/18/ | Hospital | [facility] | Luther Brito MD | Abdominal pain, | | 2018 | Encounter | [facility] | [address] | unspecified | | | | [address] | [place], [place] | abdominal location; | | | | [place], [place] | [address] | Gastroesophageal | | | | [address] | [phone] | reflux disease, | | | | [phone] | | esophagitis presence | | | [...] You can't be awakened Date Last Reviewed: 04/01/201619994509-6603 [employer]. [address] [place] [address], [place] [address]. All righ ts reserved. This information is [...] (See Comments) Confused and questionable for seizures Spzaqkelge-Mfee-Csswdwfk Hives and Rash Cephalexin Hives Ciprofloxacin Hives [...] Electronically Signed by: Luther Brito MD 12/18/2017 [facility] Portions of this chart may have been created with [employer] voice recognition software. Occasi onal wrong-word or [...] Endoscopy Patient: Belinda Rodriguez : 1960 Acct: [id number] Exam Date: Monday, December 18, 2017 Doctor: [...] If unable to reach your physician, call [facility] Emergency Department at Ext. 2500 Your doctor [...] Exams Patient: Belinda Rodriguez : 1960 Acct: [id number] Exam Date: Monday, December 18, 2017 Doctor: [...] If unable to reach your physician, call [facility] Emergency Department at Ext. [address] Your doctor [...] | | | | | [place] [address] | | | | | | [phone] | | | | | | | [...] 12/18/2017 | [facility] | | 10:49 AMMRN: [id number] #: [id number] of : | | | 9Admit Type: AmbulatoryAge: 57Room: [facility] 01Gender: FemaleNote | | | Status: FinalizedAttending MD: Luther Brito , [facility]: | | | Upper GI endoscopyIndications: [...] the anesthesiologist and the | | | injection molding technician in the pre-procedure area in the [...] | appearing mucosa. This was traversed. The sbdyo-ef-mogslwp limb | | | was characterized by healthy appearing mucosa. The | | | jejunojejunal anastomosis was characterized by healthy | | | appearing mucosa. The jzxeiasc-oq-zdywrmh limb was not examined | | | [...] AMScope Out: | | | 11:08:34 AM [facility], [address] | | | [place] [address] | | | - Return to GI [...] |Scope Out: 11:08:34 AM | | | [facility], [address] [place], [place] | | | [address] | | + + -+ + +---------+ + + | Performing | Address | City/State[facility] | Phone Number | | [...] 12/18/2017 | [place] | | 10:43 AMMRN: [id number] #: [id number] of : | | | 1960dmit Type: AmbulatoryAge: 57Room: [facility] 01Gender: FemaleNote | | | Status: FinalizedAttending MD: Luther Brito , MDProcedure: | | | ColonoscopyIndications: Generalized abdominal pain, | | | Chronic diarrheaProviders: Luther Brito MDMaris | | | LIUDMILA Epperson, Tal Diaz [...] the anesthesiologist and the | | | injection molding technician in the pre-procedure area in the [...] Scope In: 11:12:28 AMScope Out: 11:56:57 AM [place] | | | [facility], [address] [place] [address] | | | [phone] | | | - Await pathology results. [...] |Scope Out: 11:56:57 AM | | | [facility], [address] [place] [address] | | | [phone] | | + + -+ + +---------+ [...] for specific diagnostic abnormality. | | | JVR:[facility]:C2NR GROSS DESCRIPTION: Received in five parts. | [...] | | slide preparation were performed by [employer], [address], [place] [address] (Diesel Mechanic Construction: Stephen Jacobson, | | | Joanna CLIA#: [id number]). Professional interpretation was performed | | | by [employer], [facility], [address] [place] [address] (Diesel Mechanic Construction: Stephen Donaldson | Anika Jacobson M.D.; CLIA#: [id number]). Diagnostician: Stephen Khan | | | Kavon [...]
--- OUTSIDE RECORDS SUMMARY | ~2020-01-25 | XMS | Encounter Summary ---
Demographics + + + | Address | [address] | | | [place] [address] | + + + | Home Phone [...] Providers + +------+ + | Care Manager Drilling Name | Role | Phone | + [...] as of this encounter Progress Notes Interface, Exhaust Emissions Automotive Technician In - 02/15/2006 2:03 AM PDT [id number] GEOVANNI BELINDA Molly [id number] Clinic Date: 01/29/2006 Clinic: Endocrinology Belinda Meehan [...] her visits to the Emergency Department in [place], she apparently had elevated "liver enzyme levels" and her blood pressure was up to 160/98. She subsequently underwent diagnostic testing that apparently included CT imaging of her abdomen and upper GI endoscopy, abdominal ultrasound, and other testing; the results of which have apparently been normal. She started going to [employer] approximately 2 weeks ago which has increased her level of physical activity. She has only occasional headaches, due in part to ongoing treatment with propanolol. She apparently was referred by Dr. Padgett to see a manager payroll here at [facility] for further evaluation of severe recurrent abdominal [...] ([facility] and pulse 60 beats per minute and [...] evaluated recently at the Emergency Department in [place]. Her alkaline phosphatase level today is about [...] would benefit from being evaluated by a manager payroll. According to the patient, no gastroenterologists are available in [place]. She needs to petition her primary care provider and her insurance company to give the necessary authorization to allow her to be evaluated by a manager payroll. Plan: 1. Await results of serum 25-hydroxyvitamin [...] She needs to be seen by a manager payroll. 5. Return to see me again in 3 months. Beto Meeks M.D. PD / HS [id number] / [id number] / [id number] / cc: Pedrito Gutierrez M.D. [address] [place] [address] Chris Padgett M.D. Electronically signed by Beto Meeks 02-14-2006 02:02:55 AM documented i n this encounter Plan of Treatment Not on filedocumented as of this encounter Visit Diagnoses Not on filedocumented in this encounter
--- OUTSIDE RECORDS SUMMARY | ~2020-01-25 | XMS | Encounter Summary ---
Demographics + + + | Address | [address] | | | [place] [address] | + + + | Home Phone [...] Team Providers + +------+ + | Care Aoc Airspace Control Officer Name | Role | Phone | + +------+ + | Pedrito uGtierrez MD | PCP | | + +------+ [...] Naeem Clementina | | | | | [facility] | [place], [place] | | | | | and Healing, | [address] | | | | | [place] [address], [facility] | [phone] | | | | | Floor [place], [place] | | | | | | [address] | | | | | | [phone] | | | +--------+ + + + [...]
--- OUTSIDE RECORDS SUMMARY | ~2020-01-25 | XMS | Encounter Summary ---
Demographics + + + | Address | [address] | | | [place] [address] | + + + | Home Phone [...] Team Providers + +------+ + | Care Smog Technician Name | Role | Phone | [...] Other (wondering | | 2008 | | [place] [address] | [address] | ablout colonoscopy) | | | | Ave Mailcode: CH4S | [facility] | | | | | [facility] | [place], [place] | | | | | and [place], | [address] | | | | | [facility] | [phone] | | | | | [place], [place] | | | | | | [address] | | | | | | [phone] | | | +--------+ + + + [...]
--- OUTSIDE RECORDS SUMMARY | ~2020-01-25 | XMS | Encounter Summary ---
Demographics + + + | Address | [address] | | | [place] [address] | + + + | Home Phone [...] + +------+ + | Care Director Of Consumer Marketing Name | Role | Phone | [...] + | 05/04/ | Refill | [facility] | Alanis, | Medication Refill | | 2017 | | MEDICINE [address] | MD Petrona | | | | | [place], | [address] [facility] | | | | | [place] [address] | [place] [address] | | | | | [phone] | [phone] | | | | | | | [...] | | | | | [place] [address] | | | | | | [phone] | | | | | | | | +--------+---------+ + + + documented as of this encounter Visit Diagnoses Not on filedocumented in this encounter"
--- OUTSIDE RECORDS SUMMARY | ~2020-01-25 | XMS | Encounter Summary ---
Demographics + + + | Address | [address] | | | [place] [address] | + + + | Home Phone [...] Providers + +------+ + | Care Tool Setter Apprentice Name | Role | Phone [...] as of this encounter Progress Notes Interface, Header Set Up Operator In - 01/12/2005 10:09 AM PDT [id number] GEOVANNI [facility] Date: 12/19/2004 Clinic: General [...] as vitamin B12. Melisa Thorne / SHARIF [id number] / [id number] / [id number] / [id number] cc: Pedrito Gutierrez M.D. [address] [address] FAX: [phone] Chris Padgett M.D. General Surgery, [facility] Electronically signed by Kenisha Melton 12-25-2004 04:28:39 PM documented i n this encounter Plan of Treatment Not on filedocumented as of this encounter Visit Diagnoses Not on filedocumented in this encounter"
--- OUTSIDE RECORDS SUMMARY | ~2020-01-25 | XMS | Encounter Summary ---
Demographics + + + | Address | [address] | | | [place] [address] | + + + | Home Phone [...] Team Providers + +------+ + | Care Miner Pick Name | Role | Phone | + [...] | Procedures | [address] | [place] | | | | | CONSULT TO | [facility] | [address] | | | | | GI PROCEDURE | Rd | floor | | | | | UNIT: SM | [place], [place] | [place], [place] | | | | | [place]EL | [address] | [address] | | | | | CAPSULE | Phone: | Phone: | | | | | ENDOSCOPY | [phone] | [phone] | | | | | | | Fax: | | | | | | | [phone] | +--------+--------+ + + + + Consultation [...] | | | | | Procedures | [facility] | [place], [place] | | | | | CONSULT TO | Rd | [address] | | | | | PAIN CENTER | [place], [place] | | | | | | | [address] | | | | | | | Phone: | | | | | | | [phone] | | +--------+--------+ + + + + Encounter Details +--------+---------+ + + + | Date | Type | Department | Care Team | Description | +--------+---------+ + + + | 04/07/ | Office | [facility] Division of | Carlos Arreola, | Iron Deficiency; | | 2005 | Visit | Gastroenterology/Hep | [address] | Chronic Abdominal | | | | atology [address] | [facility] | Pain | | | | [address] | [place] [address] | | | | | Mailcode: PV310 | [phone] | | | | | [facility] Pavilion | | | | | | [address] | | | | | | [place], [place] | | | | | | [address] | | | | | | [phone] | | | +--------+---------+ + + + [...] December reviewed and normal (past ed below). [facility] labs received and reviewed: neg O&P UPPER [...] HEPATIS NODES. Transcribed By: Armaan Rivera : [id number] : 1224 Approved By: CT ABDOMEN AND [...] HEPATIS NODES. Transcribed By: Armaan Mata : [id number] : 1224 Approved By: Carlos Benton - 3:59 PM PDTPt seen previously seen by ny for chronic pain and PK, returns to [...]
--- OUTSIDE RECORDS SUMMARY | ~2020-01-25 | XMS | Encounter Summary ---
Demographics + + + | Address | [address] | | | [place] [address] | + + + | Home Phone [...] Providers + +------+ + | Care Retail Department Manager Name | Role | Phone | [...] Rd | | | | | | [facility] | | | | | | [place], [facility] Floor | | | | | | [place], [place] | | | | | | [address] | | | | | | [phone] | | | +--------+ + + + [...]
--- OUTSIDE RECORDS SUMMARY | ~2020-01-25 | XMS | Encounter Summary ---
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 female [facility] [...] now. She deneis sweating however has [facility] aqua pool program referral of her orthopedist physician. She reports going to [employer] three times a week for the past [...] the past week of Fentanyl patch and Newcastle. Trileptal he lps with right leg pain and sleep. "been sleeping great". Expectations for this visit include : discussing the sticking problems with the fentanyl pa tc and her insurance not being willing prescribe Newcastle. There have been no other change in [...] an d her insurance stopped coverage of Newcastle. I believe doing pool therapy three times [...] might be d iverting or using her Newcastle? Until I know more I will not be prescribing a breakthrough sina n medication but am willing to prescribe early for her fentanyl. I have asked Belinda to pharmacy picking technician and be responsible for her own medication pharmacy picking technician. I discussed with Tasha Nolasco CMA the issue of Insurance PA for Newcastle this was in progress as of the time the patient was here. At the time I completed this note we had word that Ins urance would not approve coverage. I will discuss this with Belinda once I know her story o n where the dispensed #70 Newcastle is. [ Tasha reported calling [employer] who reported: Belinda's s on picking up [...] with each exchange. 3. Patient instructed to pharmacy picking technician and be responsible for her own medications. 4. Follow up in two weeks to review pain management. Once she is again stable on the fen tanyl patch I will transfer her prescribing to Dr. Gutierrez. She has completed the Multidisci plinary patient Care program here at the [facility]. DELFINA MOLINA [facility] Mail code CH 4P [facility] and [address] [address] asha Nolasco - 12/04/2006 7:43 [...] + + | Opioid dependence, continuous ([facility]) Opioid type dependence, continuous | + + | Major depressive disorder, recurrent episode, moderate ([facility]) Major depressive | | disorder, [...]
--- OUTSIDE RECORDS SUMMARY | ~2020-01-25 | XMS | Encounter Summary ---
Demographics + + + | Address | [address] | | | [place] [address] | + + + | Home Phone [...] Providers + +------+ + | Care Precision Crop Manager Name | Role | Phone | [...] | | [facility] | [place], [place] | Bypass Surgery November | | | | [address] | [address] | 2003; | | | | [address] | [phone] | Hypothyroidism; | | | | [facility] | | Essential | | | | Physician's | | hypertension 401.9; | | | | Pavilion [place], | | Iron Deficiency | | | | [place] [address] | | | | | | [phone] | | | +--------+---------+ + + + [...] IM ( only in [facility]) made gut pain worse 08/27/06: Trial [...] 300 mg) by oral route once daily ntoxmxronx-vcrwmuayczxbr-ostnifgx (FIORICET) 50-325-40 mg Oral Tablet take 2 [...]
--- OUTSIDE RECORDS SUMMARY | ~2020-01-25 | XMS | Encounter Summary ---
Demographics + + + | Address | [address] | | | [place] [address] | + + + | Home Phone [...] Providers + +------+ + | Care Office Machines Sales Representative Name | Role | Phone | + +------+ + | Petrona Thapa | PCP | | | MD | | | + +------+ + Reason for Visit +---------+--------+ + | Reason | Onset | Comments | | | Date | | +---------+--------+ + | Results | 05/11/ | | | | 2016 | | +---------+--------+ + Encounter Details +--------+ + + + + | Date | Type | Department | Care Team | Description | +--------+ + + + + | 05/11/ | Telephone | [facility] | Alanis, | Results | | 2016 | | MEDICINE [address] [place] [address] | MD Petrona | | | | | [place], | [address] [place] [address] | | | | | [place] [address] | [place] [address] | | | | | [phone] | [phone] | | | | | | | [...] Telephone Encounter - Maggie Montoya LPN - 05/18/2017 9:04 AM PSTPatient notified of MRI o rdered and advise and will call at the end of the week to schedule own appointment.Veto lentz signed by Maggie Montoya LPN at 05/18/2017 9:05 AM PSTTelephone Encounter - Petrona Giordano MD - 05/18/2017 7:06 AM PSTMRI ordered. Advise her to take an extra dose of gabapentin 15-20 minutes before the MRI. elephone Encounter - Tamara Elliott RN - 05/12/2017 4:38 PM PSTDrYudy Booth reviewed xray result. Based on results he asked that patient be contacted to see if she would like to have an MRI so there is a clearer picture of how the loose hardware is actually affecting the surroundi ng tissues. Pt would like to have this done, agrees to have it done here rather than [place]. She denies any claustrophobia so she is able to have MRI without that concern. She is concerned with being able to manage her pain while she has to lay still for that reanna unt of time. She would like something ordered specifically for that time period. She does not drive so that is not a concern. elephone Tamara Deras RN - 05/12/2017 2:44 PM PSTCalled to patient to inform her that we do not have those xray results yet. She states [facility] in [place] said they sent them to us but I explained to her that if they mailed them then the results will be processed as scanned media document and that take s some time. Will attempt to get imaging reports expedited from [facility] elephone Alan Ennis - 05/12/2017 1:36 PM PSTPatient is calling on status of xray i n [place], [place]. Patient is asking for a call back. elephone Shlomo - Alan Odell - 2016 3:53 PM PSTPatient called back regarding image results elephone Shlomo - Alan Odell - 05/11/2017 9:24 AM PSTContact/Caller: Belinda Contact Number: [phone] Provider/Nurse: Emmy Reason for Call: Patient's is asking about image results done on Thursday in [facility]. Shaniae nt also is asking that the results be sent to doctor in [place]. Please advise. Last Appointment: 05-04-17 Next Appointment: documented in th is encounter Plan of Treatment +--------+---------+ + + + | Date | Type | Specialty | Care Team | Description | +--------+---------+ + + + | 02/15/ | Office | Internal Medicine | Alanis, | | | 2019 | Visit | | MD Petrona | | | | | | [address] [facility] [place] | | | | | | [place] [address] | | | | | | [phone] | | | | | | | | +--------+---------+ + + + documented as of this encounter Visit Diagnoses + + | Diagnosis | + + | Acute bilateral low back pain with bilateral sciatica - Primary | + + documented in this encounter"
--- OUTSIDE RECORDS SUMMARY | ~2020-01-25 | XMS | Encounter Summary ---
Demographics + + + | Address | [address] | | | [place] [address] | + + + | Home Phone [...] Providers + +------+ + | Care Roof Promenade Tile Setter Name | Role | Phone | [...] | | | | [address] [facility]ician's | [place], [place] | | | | | [address] | [address] | | | | | [place], [place] | [phone] | | | | | [address] | | | | | | [phone] | | | +--------+ + + + [...] | + + + + + | [facility] DEPARTMENT OF | [address] | [place] [address] | | | PATHOLOGY | [address] | | | + + + + + | [facility] DEPARTMENT OF | [address] | [place] [address] | | | PATHOLOGY | [address] [...] + | [facility] DEPARTMENT OF | [facility] | [place] [address] | | | PATHOLOGY | [address] | | | + + + + + | [facility] DEPARTMENT OF | [facility] | [place] [address] | | | PATHOLOGY | [address] [...] DEPARTMENT OF | [address] | [place] [address] | | | PATHOLOGY | [address] | | | + + + + + | [facility] DEPARTMENT OF | [address] [facility] | [place] [address] | | | PATHOLOGY | [address] [...] DEPARTMENT OF | [address] | [place], [place] [address] | | | PATHOLOGY | [address] | | | + + + + + | [facility] DEPARTMENT OF | [address] | [place] [address] | | | PATHOLOGY | [address] [...] [facility] | [address] | [place] [address] | | | PATHOLOGY | [address] | | | + + + + + | [facility] | [address] | [place] [address] | | | PATHOLOGY | [address] | | | + + + + + documented in this encounter Visit Diagnoses Not on filedocumented in this encounter"
--- OUTSIDE RECORDS SUMMARY | ~2020-01-25 | XMS | Encounter Summary ---
Demographics + + + | Address | [address] | | | [place] [address] | + + + | Home Phone [...] Team Providers + +------+ + | Care Bronc Buster Name | Role | Phone | [...] Pain; Status Post | | | | [facility] | | Bariatric Surgery | | | | and Healing, | | | | | | Building [address] | | | | | | [place], [place] | | | | | | [address] | | | | | | [phone] | | | +--------+------+ + + + [...] AT,GLUC,CA,AST,ALT,B | | | | | | DYEA TOTAL,ALK | | | | | | [...] Performed At | + + + | [id number] Estimated GFR > 60 mL/min/1.73 sq m if non- | [facility] | | Liberian [id number] Estimated GFR > 60 mL/min/1.73 sq m if | DEPARTMENT OF | | [place]ian GFR is estimated using the MDRD equation [...] DEPARTMENT OF | [address] | [place] [address] | | | PATHOLOGY | [address] | | | + + + + + | [facility] DEPARTMENT OF | [address] | [place] [address] | | | PATHOLOGY | [address] | | | + + + + + INR (08/28/2008 3:31 PM PDT) + + + + + + | Component | Value | Ref Range | Performed | Pathologist | | | | | At | Signature | + + + + + + | INR | 0.96Comment: | 0.90 - 1.20 INR | [facility] | | | | INR Therapeutic [...] | + + + + + | [facility] | [address] | [place] [address] | | | PATHOLOGY | [address] | | | + + + + + | [facility] | [address] | [place] [address] | | | PATHOLOGY | [address] | | | + + + + + documented in this encounter Visit Diagnoses + + | Diagnosis | + + | Chronic abdominal pain Abdominal pain, unspecified site | + + | Status post bariatric surgery Bariatric surgery status | + + documented in this encounter"
--- OUTSIDE RECORDS SUMMARY | ~2020-01-25 | XMS | Encounter Summary ---
Demographics + + + | Address | [address] | | | [place] [address] | + + + | Home Phone [...] + +------+ + | Care Regional Facilities Manager Name | Role | Phone | + +------+ + | Pedrito Gutierrez MD | PCP | | + +------+ + Encounter Details +--------+---------+ + + + | Date | Type | Department | Care Team | Description | +--------+---------+ + + + | 08/05/ | Office | Comprehensive Pain | Nathalia Arora | Cervical Spondylosis | | 2006 | Visit | [facility] | [address] | without Myelopathy | | | | [address] | Clementina [place], | (Primary Dx); | | | | [facility] | [place] [address] | 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 1960 Start of Care: 06/23/2006 Referring Provider: [...] keep hydrated, went to the ED in [place] and was sent home by the [facility] without a ny treatment and advised by him to contact the pain clinic. Patient did not some relief with her last treatment, and continues her exercises consistent ly. She is walking daily at [facility] for 15-20 minutes, sitting X 60 [...]
--- OUTSIDE RECORDS SUMMARY | ~2020-01-25 | XMS | Encounter Summary ---
Demographics + + + | Address | [address] | | | [place] [address] | + + + | Home Phone [...] Team Providers + +------+ + | Care Demolition Expert Name | Role | Phone | [...] | | | [facility] | [place], [place] | Bypass Surgery November | | | | [address] | [address] | 2003; | | | | [address] | [phone] | Hypothyroidism; | | | | [facility] | | Essential | | | | Physician's | | hypertension 401.9; | | | | Pavilion [place], | | Iron Deficiency | | | | [place] [address] | | | | | | [phone] | | | +--------+---------+ + + + [...] Tramadol Morphine IM ( only in [facility]) made gut pain worse 08/27/06: Trial [...] 300 mg) by oral route once daily pyqolnqxxe-qktuxkghoojns-ctazcdij (FIORICET) 50-325-40 mg Oral Tablet take 2 [...]
--- OUTSIDE RECORDS SUMMARY | ~2020-01-25 | XMS | Encounter Summary ---
Demographics + + + | Address | [address] | | | [place] [address] | + + + | Home Phone [...] Providers + +------+ + | Care Machine Farmworker Name | Role | Phone | [...] | | | supraspinatu | [place] | [address] | | | | | s tendon, | [address] | Phone: | | | | | initial | Phone: | [phone] | | | | | encounter | [phone] | Fax: | | | | | | Fax: | [phone] | | | | | | [phone] | | +--------+ + + + + [...] | | shoulder | [address] | [address] [place] | | | | | Tear of MD [address] | [place] | | | | | right | [address] | [address] Phone: | | | | | supraspinatu | [place], | [phone] | | | | | s tendon, | [place] | Fax: | | | | | initial | [address] | [phone] | | | | | encounter | Phone: | | | | | | | [phone] | | | | | | | Fax: | | | | | | | [phone] | | +--------+ + + + + + Encounter Details +--------+---------+ + + + | Date | Type | Department | Care Team | Description | +--------+---------+ + + + | 02/23/ | Office | [facility] | Lc Vail | Acute pain of right | | 2018 | Visit | ORTHOPEDIC SURGERY | MD [address] | shoulder; Tear of | | | | [address] | [address] | right supraspinatus | | | | [place] | [place] [address] | tendon, initial | | | | [address] | [phone] | encounter | | | | [phone] | | | +--------+---------+ + + + [...] the shoulder. Try to hold the stretch [id number]. 3. Work up to [id number] of this stretch,3times a day. Work up [...] ask your healthcare provider. Date Last Reviewed: 07/16/201719994115-[address] [employer] [place], [place] [address]. All righ ts reserved. This information is not intended as a substitute for professional medical care. Always follow your healthcare professional's instructions. documented in this encounter Progress Notes Lc Vail MD - 02/23/2018 1:30 PM PDTFormatting of this note might be different fro m the original. [facility] HISTORY AND PHYSICAL EXAMINATION Pt. [...] COLONOSCOPY N/A 12/18/2017 Procedure: COLONOSCOPY; Surgeon: Luther Briot MD; Location: [facility] MEDICAL PROCEDURE UNIT DILATION AND CURETTAGE OF UTERUS ELBOW SURGERY FINGER TRIGGER RELEASE 2002 FINGER TRIGGER RELEASE 2010 GASTRIC BYPASS SURGERY 2004 HYSTERECTOMY 05/14/1980 JOINT REPLACEMENT Bilateral 2007,2008 KNEE ARTHROSCOPY 2005 LAPAROSCOPY 01/27/2015 LAPAROTOMY 2008 ROTATOR CUFF REPAIR 2005 SPINE SURGERY TONSILLECTOMY 1964 UPPER GASTROINTESTINAL ENDOSCOPY N/A 12/18/2017 Procedure: EGD; Surgeon: Luther Brito MD; Location: [facility] MEDICAL PROCEDURE UNIT Allergies: Allergies Allergen Reactions Codeine Sulfate Nausea Only Levofloxacin Hives, Itching and Rash Amitriptyline Hcl Other (See Comments) Confused and questionable for seizures Prrpkhdlnl-Nmkg-Krdohsdc Hives and Rash Cephalexin Hives Ciprofloxacin Hives [...] 1. Acute pain of right shoulder * [facility] Physical Therapy - AMB Referral triamcinolone acetonide (KENALOG-40) 40 mg/mL injection 40 mg 2. Tear of right supraspinatus tendon, initial encounter * [facility] Physical Therapy - AMB Refe rral triamcinolone [...] injection. She is very symptomatic at the [facility] and states that she has a [...] made to ensure accuracy; however, inadvertent computerized paper mill supervisor errors may be pre sent. I appreciate the opportunity to help with the management of this patient. Lc Vail MD [facility] umented in this encounter Plan of Treatment +--------+---------+ + + + | Date | Type | Specialty | Care Team | Description | +--------+---------+ + + + | 02/15/ | Office | Internal Medicine | Alanis, | | | 2019 | Visit | | MD [place]rona | | | | | | [address] | | | | | | [place] [address] | | | | | | [phone] | | | | | | | [...]
--- OUTSIDE RECORDS SUMMARY | ~2020-01-25 | XMS | Encounter Summary ---
Demographics + + + | Address | [address] | | | [place] [address] | + + + | Home Phone [...] Providers + +------+ + | Care Elementary Principal Name | Role | Phone | [...] | | 2006 | | [facility] at [place] | MD Darrion,PhD [address] | | | | | for Health and | [address] | | | | | Healing [address] | [place], [place] | | | | | [facility] | [address] | | | | | Health and Healing, | [phone] | | | | | | | | | | | Floor [place], [place] | | | | | | [address] | | | | | | [phone] | | | +--------+ + + + [...]
--- OUTSIDE RECORDS SUMMARY | ~2020-01-25 | XMS | Encounter Summary ---
Demographics + + + | Address | [address] | | | [place] [address] | + + + | Home Phone [...] Providers + +------+ + | Care Vacuum Forming Machine Operator Name | Role | [...] Lab findings, | | 2006 | | [place] [address] | [address] | teaching, guidance, | | | | Ave Mailcode: CH4S | [address] | and counseling | | | | [facility] | [place], [place] | | | | | and Healing, | [address] | | | | | [facility] | [phone] | | | | | [place], [place] | | | | | | [address] | | | | | | [phone] | | | +--------+ + + + [...]
--- OUTSIDE RECORDS SUMMARY | ~2020-01-25 | XMS | Encounter Summary ---
Demographics + + + | Address | [address] | | | [place] [address] | + + + | Home Phone [...] Providers + +------+ + | Care Steam Hand Name | Role | Phone | [...] + + | 03/28/ | Documentati | [facility] | Rosi Antonio, | Erroneous Encounter | | 2012 | on | Pain Center at | ANP | - Disregard | | | | [facility] | | | | | | [address] | | | | | | [facility] | | | | | | and Healing, | | | | | | Building | | | | | | Floor [place], [place] | | | | | | [address] | | | | | | [phone] | | | +--------+ + + + [...]
--- OUTSIDE RECORDS SUMMARY | ~2020-01-25 | XMS | Encounter Summary ---
Demographics + + + | Address | [address] | | | [place] [address] | + + + | Home Phone [...] Team Providers + +------+ + | Care Eyeletter Name | Role | Phone | + +------+ + | Maria Esther Cintron MD | PCP | | + +------+ + Encounter Details +--------+ + + + + | Date | Type | Department | Care Team | Description | +--------+ + + + + | 08/26/ | Telephone | [facility]ive [facility] | Chris Padgett, | | | 2010 | | [place] [address] | [address] [facility] | | | | | Bethanie Mailcode: CH4S | [address] | | | | | Center for Health | [place], [place] | | | | | and Healing, | [address] | | | | | Building , 6th | [phone] | | | | | Floor [place], [place] | | | | | | [address] | | | | | | [phone] | | | +--------+ + + + [...]
--- OUTSIDE RECORDS SUMMARY | ~2020-01-25 | XMS | Encounter Summary ---
Demographics + + + | Address | [address] | | | [place] [address] | + + + | Home Phone [...] Providers + +------+ + | Care Supervisor Cell Room Name | Role | Phone | [...] [id number] | | | | | | [place], [place] | | | | | | [address] | | | | | | [phone] | | | +--------+ + + + [...]
--- OUTSIDE RECORDS SUMMARY | ~2020-01-25 | XMS | Encounter Summary ---
Demographics + + + | Address | [address] | | | [place] [address] | + + + | Home Phone [...] | | | | | elsewhere | [place], [place] | [place], [place] | | | | | classified | [address] | [address] | | | | | Procedures | | Phone: | | | | | [place] | | [phone] | | | | | PSYCHOTHERPY | | Fax: | | | | | , OFFICE | | [phone] | | | | | (38-66) | | | +--------+--------+ + + + + Encounter Details +--------+---------+ + + + | Date | Type | Department | Care Team | Description | +--------+---------+ + + + | 07/15/ | Office | [facility] at [facility] | Lukasz Charles, | Major Depressive | | 2006 | Visit | [address] | PhD [address] | Disorder, Recurrent | | | | Center for Health | [place], [place] | Episode, Moderate | | | | and Healing, | [address] | ([facility]); Cervical | | | | | [phone] | Spondylosis without | | | | Floor [place], [place] | | Myelopathy; Migraine | | | | [address] | | Headache; | | | | [phone] | | Adjustment Disorder | | | [...] She appears to have good insight. Diagnosis: Screven I: 1. (296.32) Major depressive disorder, recurrent, moderate. 2. (309.24) Adjustment disorder with anxiety. 3. 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 Screven II: Deferred Screven III: abdominal pain, migraine headache, low back pain. Screven IV: low finances Screven V: GAF 50 Plan: Return in 2 weeks. Check relaxation and activity. Check mood. Continue cognitive/behavio ral therapy. Total time spent with patient was approximately 50 minutes. LUKASZ CHARLES PHD [facility] [facility], [address]th [place] [address] documented in this [facility] Plan of Treatment + + [...] | | | | ([facility]) Cervical | | | | | | Spondylosis without | | | | | | Myelopathy Migraine | | | | | | Headache | | | | | | Adjustment Disorder | | | | | | with Anxiety | | + + +--------+ + + | [place] BIOFEEDBACK | Procedures | Routin | Cervical [...]
--- OUTSIDE RECORDS SUMMARY | ~2020-01-25 | XMS | Encounter Summary ---
Demographics + + + | Address | [address] | | | [place] [address] | + + + | Home Phone [...] Providers + +------+ + | Care Ring Packer Name | Role | Phone | [...] | | | [facility] | [place], [place] | | | | | [address] | [address] | | | | | [address] | [phone] | | | | | Physician's [address] | | | | | | Physician's | | | | | | [place], | | | | | | [place] [address] | | | | | | [phone] | | | +--------+---------+ + + + [...]
--- OUTSIDE RECORDS SUMMARY | ~2020-01-25 | XMS | Encounter Summary ---
Demographics + + + | Address | [address] | | | [place] [address] | + + + | Home Phone [...] Team Providers + +------+ + | Care Sewage Disposal Engineer Name | Role | Phone | [...] | Procedures | [address] | [place] | | | | | CONSULT TO | [address] | [address] | | | | | GI PROCEDURE | Rd | floor | | | | | UNIT: EGD | [place], [place] | [place], [place] | | | | | | [address] | [address] | | | | | | Phone: | Phone: | | | | | | [phone] | [phone] | | | | | | | Fax: | | | | | | | [phone] | +--------+--------+ + + + + Consultation [...] | | | | | UNIT: | [place] | | | | | COLONOSCOPY | [address] | [address] | | | | | | Phone: | Phone: | | | | | | [phone] | [phone] | | | | | | | Fax: | | | | | | | [phone] | +--------+--------+ + + + + Reason [...] + + | 03/10/ | Office | [facility] Division of | Carlos Arreola, | Chronic Abdominal | | 2005 | Visit | Gastroenterology/Hep | MD [address] | Pain; Iron | | | | atology [address] | [address] | Deficiency | | | | [address] | [place] [address] | | | | | Mailcode: PV310 | [phone] | | | | | Physician[facility]ilion | | | | | | [address] | | | | | | [place], [place] | | | | | | [address] | | | | | | [phone] | | | +--------+---------+ + + + [...] so by calling and asking for my certified physical therapist assistant Cierra Alexis. I always do my [...] other questions or issues. Carlos Arreola MD. 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 Lost 200lbs psot bypass surgery, has [...] [facility] | [address] | [place] [address] | | | PATHOLOGY | [address] | | | + + + + + | [facility] | [address] | [place] [address] | | | PATHOLOGY | [address] [...] [facility] | [address] [facility] | [place] [address] | | | PATHOLOGY | [address] | | | + + + + + | [facility] | [address] [facility] | [place] [address] | | | PATHOLOGY | [address] [...] + + + + + | [facility] DEPARTMENT OF | [address] | [place] [address] | | | PATHOLOGY | [address] | | | + + + + + | [facility] | [facility] [address] | [place] [address] | | | PATHOLOGY | [address] [...] DEPARTMENT OF | [address] | [place] [address] | | | PATHOLOGY | [address] | | | + + + + + | [facility] | [address] | [place] [address] | | | PATHOLOGY | [address] [...] | pg/mL | | | | | [facility]. | | | | + + + + + + + + | Specimen | + + | | + + + + + + + | Performing | Address | City/State/Zipcode | Phone Number | | Organization | | | | + + + + + | [facility] | [address] | [place] [address] | | | LABORATORY | | | [...] | | | | | performed at [facility] | | | | | | [facility] | | | | | | Laboratory | | | | + + + + + + + + | Specimen | + + | | + + + + + + + | Performing | Address | City/State/Zipcode | Phone Number | | Organization | | | | + + + + + | [facility] | [address] | [place] [address] | | | LABORATORY | | | | + + + + + documented in this encounter Visit Diagnoses + + | Diagnosis | + + | Chronic abdominal pain Abdominal pain, unspecified site | + + | Iron deficiency Other disorders of iron metabolism | + + documented in this encounter"
--- OUTSIDE RECORDS SUMMARY | ~2020-01-25 | XMS | Encounter Summary ---
Demographics + + + | Address | [address] | | | [place] [address] | + + + | Home Phone [...] Team Providers + +------+ + | Care Frame Operator Name | Role | Phone | [...] + + | 01/31/ | Telephone | [facility] | Alanis, | Foot Pain | | 2018 | | MEDICINE [address] | MD [place] | | | | | [place], | [address] [facility] | | | | | [place] [address] | [place] [address] | | | | | [phone] | [phone] | | | | | | | [...] she needs for this. elephone Encounter - BaiSia - 01/31/2019 7:24 AM PDTPatient is calling [...] | | | | | [place] [address] | | | | | | [phone] | | | | | | | | +--------+---------+ + + + documented as of this encounter Visit Diagnoses Not on filedocumented in this encounter"
--- OUTSIDE RECORDS SUMMARY | ~2020-01-25 | XMS | Encounter Summary ---
Demographics + + + | Address | [address] | | | [place] [address] | + + + | Home Phone [...] | 01/12/ | Refill | [facility] | Alanis, | Medication Refill | | 2017 | | MEDICINE [address] | MD [place] | | | | | [place], | [address] | | | | | [place] [address] | [place] [address] | | | | | [phone] | [phone] | | | | | | | [...] | | | | | [place] [address] | | | | | | [phone] | | | | | | | | +--------+---------+ + + + documented as of this encounter Visit Diagnoses Not on filedocumented in this encounter"
--- OUTSIDE RECORDS SUMMARY | ~2020-01-25 | XMS | Encounter Summary ---
Demographics + + + | Address | [address] | | | [place] [address] | + + + | Home Phone [...] Team Providers + +------+ + | Care Portable Sawmill Operator Name | Role | Phone [...] + | 05/14/ | Telephone | [facility] | Erich Conley MD | Medication Refill | | 2018 | | MEDICINE [address] | [address] [place] [address] | | | | | [place], | [place] | | | | | [place] [address] | [id number] | | | | | [phone] | | | +--------+ + + + [...] | | | | | [place] [address] | | | | | | [phone] | | | | | | | | +--------+---------+ + + + documented as of this encounter Visit Diagnoses Not on filedocumented in this encounter"
--- OUTSIDE RECORDS SUMMARY | ~2020-01-25 | XMS | Encounter Summary ---
Demographics + + + | Address | [address] | | | [place] [address] | + + + | Home Phone [...] Providers + +------+ + | Care Facility Sales And Admin Name | Role | Phone | [...] [address] | | | | | [facility] | [address] [place], | | | | | [address] | [place] [address] | | | | | [facility] | | | | | | and Healing, | | | | | | Building | | | | | | Floor [place], [place] | | | | | | [address] | | | | | | [phone] | | | +--------+ + + + [...]
--- OUTSIDE RECORDS SUMMARY | ~2020-01-25 | XMS | Encounter Summary ---
Demographics + + + | Address | [address] | | | [place] [address] | + + + | Home Phone [...] Team Providers + +------+ + | Care Soaking Pits Supervisor Name | Role | Phone | [...] | | 2012 | | [facility] [address] | EATING DISORDER SPECIALIST [address] | | | | | [address] [facility] | [facility] [address] | | | | | for Health and | [place], [place] | | | | | [facility] 2 | [address] | | | | | [place], [place] | [phone] | | | | | [address] | | | | | | [phone] | | | +--------+ + + + [...]
--- OUTSIDE RECORDS SUMMARY | ~2020-01-25 | XMS | Encounter Summary ---
Demographics + + + | Address | [address] | | | [place] [address] | + + + | Home Phone [...] Team Providers + +------+ + | Care Parimutuel Cashier Name | Role | Phone | [...] + | 02/25/ | Telephone | [facility] | Alanis, | Pain | | 2018 | | MEDICINE [address] | MD [place] | | | | | [place], | [address] [facility] | | | | | [place] [address] | [place] [address] | | | | | [phone] | [phone] | | | | | | | [...] AM Yeni SHEEHAN patient needs to s coquille medical attention for evaluation for back pain [...] | | | | | [place] [address] | | | | | | [phone] | | | | | | | | +--------+---------+ + + + documented as of this encounter Visit Diagnoses Not on filedocumented in this encounter"
--- OUTSIDE RECORDS SUMMARY | ~2020-01-25 | XMS | Encounter Summary ---
Demographics + + + | Address | [address] | | | [place] [address] | + + + | Home Phone [...] Providers + +------+ + | Care Site Inspector Name | Role | Phone | [...] Floor | | | | | | [place], [place] | | | | | | [address] | | | | | | [phone] | | | +--------+ + + + [...] No: | | | | | | [id number] Name: | | | | | | BELINDA MEEHAN | | | | | | Birthday: 1960 | | | | | | Sex: F | | | | | | Alias:Patient Location: | | | | | | [id number]: Outpatient | | | | | | ActiveOrdering | | | | | | Physician: JOSÉ MIGUEL | | | | | | MARYSOL MORENO SCAPULA | | | | | | COMPLETE completed on | | | | | | 01/01/2009 11:55 | | | | | | AMAccession # | | | | | | [id number]:LEFT | | | | | | SCAPULA [...]
--- OUTSIDE RECORDS SUMMARY | ~2020-01-25 | XMS | Encounter Summary ---
Demographics + + + | Address | [address] | | | [place] [address] | + + + | Home Phone [...] Providers + +------+ + | Care Regional Transportation Manager Name | Role | Phone | [...] | | | | | Encounter | [place], [place] | [place], [place] | | | | | for | [address] | [address] | | | | | long-term | | Phone: | | | | | (current) | | [phone] | | | | | use of other | | Fax: | | | | | medications | | [phone] | | | | | LBP (low [...] 08/09/ | Office | [facility] at [facility] | Lukasz Charles, | Major depressive | | 2013 | Visit | [address] | PhD [address] | disorder, recurrent | | | | [facility] | [place], [place] | episode, moderate | | | | and Healing, | [address] | ([facility]) (Primary Dx); | | | | | [phone] | LBP (low back pain); | | | | Floor [place], [place] | | Fibromyalgia; | | | | [address] | | Adjustment disorder | | | | [phone] | | with anxiety | +--------+---------+ + [...] living with her and her son's girlfr iend has moved back in. There is a [...] gives her a lot of motivation. Diagnosis: Scenic I: 1. (296.32) Major depressive disorder, recurrent, moderate. 2. (309.24) Adjustment disorder with anxiety. Scenic II: Deferred Scenic III: abdominal pain, migraine headache, low back pain, fibromyalgia. Scenic IV: low finances Scenic V: GAF 55-60 Plan: return in 1 month. Check mood, pain, activity, stress management. Ask about any ch anges at home, taking care of her own self, sleeping. Continue cognitive/behavioral therapy . Total time spent with patient was approximately 45 minutes. LUKASZ CHARLES PHD [facility], [address]th [place] [address] documented in this en counter Plan of [...]
--- OUTSIDE RECORDS SUMMARY | ~2020-01-25 | XMS | Encounter Summary ---
Demographics + + + | Address | [address] | | | [place] [address] | + + + | Home Phone [...] Providers + +------+ + | Care Environmental Restoration Planner Name | Role | Phone | [...] [id number] | | | | | | [place], [place] | | | | | | [address] | | | | | | [phone] | | | +--------+ + + + [...]
--- OUTSIDE RECORDS SUMMARY | ~2020-01-25 | XMS | Encounter Summary ---
Demographics + + + | Address | [address] | | | [place] [address] | + + + | Home Phone [...] Providers + +------+ + | Care Air Drill Operator Name | Role | Phone [...] | | | | [facility] | | | | | | [address] | | | | | | [facility] | | | | | | and Healing, | | | | | | Building , | | | | | | Floor [place], [place] | | | | | | [address] | | | | | | [phone] | | | +--------+ + + + [...]
--- OUTSIDE RECORDS SUMMARY | ~2020-01-25 | XMS | Encounter Summary ---
Demographics + + + | Address | [address] | | | [place] [address] | + + + | Home Phone [...] Providers + +------+ + | Care Electric Meter Installer Name | Role | Phone [...] | | | | | hemorrhoid | [place], [place] | [address] [facility] | | | | | Rectal pain | [address] | [facility] | | | | | Procedures | | [address] [place], | | | | | CONSULT TO | | [place] | | | | | COLORECTAL | | [address] | | | | | SURGERY | | Phone: | | | | | | | [phone] | | | | | | | Fax: | | | | | | | [phone] | +--------+--------+ + + + + Encounter Details +--------+ + + + + | Date | Type | Department | Care Team | Description | +--------+ + + + + | 08/10/ | Rerecording Mixer | Dig[facility]ive Health | Nuris Cardenas, ANP | Internal Hemorrhoid; | | 2008 | | [place] [address] | | Rectal Pain | | | | [address] | | | | | | Mailcode: [id number] | | | | | | [facility] | | | | | | [place], [place] | | | | | | [address] | | | | | | [phone] | | | +--------+ + + + [...]
--- OUTSIDE RECORDS SUMMARY | ~2020-01-25 | XMS | Encounter Summary ---
Demographics + + + | Address | [address] | | | [place] [address] | + + + | Home Phone [...] Providers + +------+ + | Care Panel Monitor Name | Role | Phone | + [...] | 11/26/ | Refill | [facility] | Alanis, | Medication Refill | | 2018 | | MEDICINE [address] | MD [place] | | | | | [place], | [address] | | | | | [place] [address] | [place] [address] | | | | | [phone] | [phone] | | | | | | | [...] request refill, patient can be reached at [phone] [facility] Plan of Treatment +--------+---------+ + + + | Date | Type | Specialty | Care Team | Description | +--------+---------+ + + + | 02/15/ | Office | Internal Medicine | Alanis, | | | 2019 | Visit | | MD [place] | | | | | | [address] [place] | | | | | | [place] [address] | | | | | | [phone] | | | | | | | | +--------+---------+ + + + documented as of this encounter Visit Diagnoses + + | Diagnosis | + + | Chronic diarrhea Diarrhea | + + documented in this encounter"
--- OUTSIDE RECORDS SUMMARY | ~2020-01-25 | XMS | Encounter Summary ---
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 Belinda Meehan is here today for a [...] until surgery pending 02/13 12/19. DELFINA MOLINA [facility] Comprehensive Pain Center Mail code CH 4P [place] [facility] and [address] [address] Ailyn Foster - 01/12/20 07 [...]
--- OUTSIDE RECORDS SUMMARY | ~2020-01-25 | XMS | Encounter Summary ---
Demographics + + + | Address | [address] | | | [place] [address] | + + + | Home Phone [...] Providers + +------+ + | Care Roller Operator Name | Role | Phone [...] 09/23/ | Office | [facility] Center at [facility] | Lukasz Charles, | Major Depressive | | 2006 | Visit | [address] | PhD [address] | Disorder, Recurrent | | | | [facility] | [place], [place] | Episode, Moderate | | | | and Healing, | [address] | (HCC); Chronic | | | | Building | [phone] | Abdominal Pain; | | | | Floor [place], [place] | | Herniated Lumbar | | | | [address] | | Intervertebral Disc | | | | [phone] | | L4-5; DJD | | | [...] progress but still neglects self-care occasionally. Diagnosis: [place] I: 1. (296.32) Major depressive disorder, recurrent, moderate. 2. (309.24) Adjustment disorder with anxiety. 3. (307.89) Chronic pain disorder associated with both psychological factors and a gene ral medical condition. [place] II: Deferred [place] III: abdominal pain, migraine headache, low back pain. [place] IV: low finances [place] V: GAF 50 Plan: Return in 2 weeks. Check preparation for move and for niece's visit, Curves gym, pacing, r elaxation, activity, distraction. Check managing Pain... book. Discuss need for further vi sits. Total time spent with patient was approximately 45 minutes. LUKASZ CHARLES [facility]IN [facility] Comprehensive Pain Center [address] [facility] [place] [address] documented in this encount er Plan of [...] Moderate | | | | | | ([facility]) Chronic | | | | | | [...]
--- OUTSIDE RECORDS SUMMARY | ~2020-01-25 | XMS | Encounter Summary ---
Demographics + + + | Address | [address] | | | [place] [address] | + + + | Home Phone [...] Team Providers + +------+ + | Care Sewing Demonstrator Name | Role | Phone | [...] | | | | Clinical Nutrition | [place], [place] | | | | | [address] | [address] | | | | | Loop Mailcode: OPC5 | [phone] | | | | | Outpatient Clinic | | | | | | [facility] | | | | | | [place] [address] | | | | | | [phone] | | | +--------+ + + + [...] [facility] DE[facility] | [address] | [place] [address] | | | PATHOLOGY | [address] | | | + + + + + | [facility] DEPARTMENT OF | [address] | [place] [address] | | | PATHOLOGY | [address] [...] | [facility] | [address] | [place] [address] | | | PATHOLOGY | [address] | | | + + + + + | [facility] | [address] | [place] [address] | | | PATHOLOGY | [address] | | | + + + + + documented in this encounter Visit Diagnoses Not on filedocumented in this encounter"
--- OUTSIDE RECORDS SUMMARY | ~2020-01-25 | XMS | Encounter Summary ---
Demographics + + + | Address | [address] | | | [place] [address] [...] Providers + +------+ + | Care Truck Supervisor Name | Role | Phone | [...] | | | | [facility] | [place], [place] | | | | | [address] | [address] | | | | | [place], [place] | [phone] | | | | | [address] | | | | | | [phone] | | | +--------+ + + + [...]
--- OUTSIDE RECORDS SUMMARY | ~2020-01-25 | XMS | Encounter Summary ---
Demographics + + + | Address | [address] | | | [place] [address] | + + + | Home Phone [...] Providers + +------+ + | Care On Call Pharmacy Technician Name | Role | Phone [...] [address] | | | | | [facility] | [place], [place] | | | | | [address] | [address] | | | | | [address] | [phone] | | | | | Physician's Pavilion | | | | | | Physician's | | | | | | Pavilion [place], | | | | | | [place] [address] | | | | | | [phone] | | | +--------+--------+ + + + [...]
--- OUTSIDE RECORDS SUMMARY | ~2020-01-25 | XMS | Encounter Summary ---
Demographics + + + | Address | [address] | | | [place] [address] | + + + | Home Phone [...] + +------+ + | Care Early Childhood Special Educator Name | Role | Phone | [...] | | | [facility] | [place], [place] | | | | | and Healing, | [address] | | | | | [facility], [facility] | [phone] | | | | | Floor [place], [place] | | | | | | [address] | | | | | | [phone] | | | +--------+ + + + [...]
--- OUTSIDE RECORDS SUMMARY | ~2020-01-25 | XMS | Encounter Summary ---
Demographics + + + | Address | [address] | | | [place] [address] | + + + | Home Phone [...] Team Providers + +------+ + | Care Odd Job Worker Name | Role | Phone | [...] | Pain | Diagnoses | Miracle, | Yell, | | | | Management | LBP (low | NIHARIKA Jean | Lukasz Rhodes, PhD | | | | | back pain) | [address] | [address] | | | | | DJD | [address] | Ave | | | | | (degenerativ | [place], [place] | [place], [place] | | | | | e joint | [address] | [address] | | | | | disease) of | | Phone: | | | | | knee Knee | | [phone] | | | | | pain Major | | Fax: | | | | | depressive | | [phone] | | | | | disorder, | [...] 04/13/ | Office | [facility] Center at [facility] | Lukasz Charles, | Major Depressive | | 2007 | Visit | [address] | PhD [address] | Disorder, Recurrent | | | | [facility] | [place], [place] | Episode, Mild (HCC); | | | | and Healing, | [address] | LBP (Low Back | | | | | [phone] | Pain); Migraine | | | | Floor [place], [place] | | Headache; Adjustment | | | | [address] | | Disorder with | | | | [phone] | | Anxiety | +--------+---------+ + + [...] plans for her surgical recovery period. Diagnosis: [place] I: 1. (296.31) Major depressive disorder, recurrent, mild. 2. (309.24) Adjustment disorder with anxiety. 3. (307.89) Chronic pain disorder associated with both psychological factors and a gene ral medical condition. [place] II: Deferred [place] III: abdominal pain, migraine headache, low back pain. [place] IV: low finances [place] V: GAF 55-60 Plan: return with next medical follow-up appointment. Check mood, pain, relaxation, activ ity, distraction, eating. Ask about headaches, fainting, surgery. Continue cognitive/behav ioral therapy. Total time spent with patient was approximately 45 minutes. LUKASZ CHARLES [facility] Comprehensive Pain Center [address] [facility], [address] [place] [address] documented in this encount er Plan of Treatment + + +--------+ + + | Name | Type | Priori | Associated Diagnoses | Order Schedule | | | | ty | | | + + +--------+ + + | [facility], | Procedures | Routin | Major Depressive | Ordered: 04/13/2008 | | OFFICE (03-54) | | e | Disorder, Recurrent | [...]
--- OUTSIDE RECORDS SUMMARY | ~2020-01-25 | XMS | Encounter Summary ---
Demographics + + + | Address | [address] | | | [place] [address] | + + + | Home Phone [...] Team Providers + +------+ + | Care Department Coordinator Name | Role | Phone | [...] + + | 10/11/ | Telephone | [facility] | Alanis, | LABS | | 2018 | | MEDICINE [address] | MD Petrona | | | | | [place], | [address] [facility] | | | | | [place] [address] | [place] [address] | | | | | [phone] | [phone] | | | | | | | [...] needing labs please sent orders to [facility] in [place]. Veto lentz signed by Bob Tinoco at [...] | | | | [address] [facility] | | | | | | [place] [address] | | | | | | [phone] | | | | | | | | +--------+---------+ + + + documented as of this encounter Visit Diagnoses + + | Diagnosis | + + | Osteoporosis, unspecified osteoporosis type, unspecified pathological fracture | | presence - Primary | + + documented in this encounter"
--- OUTSIDE RECORDS SUMMARY | ~2020-01-25 | XMS | Encounter Summary ---
Demographics + + + | Address | [address] | | | [place] [address] | + + + | Home Phone [...] + +------+ + | Care Occupational Therapy Program Director Name | Role | Phone [...] Jayce Hartley | | | | | [facility] | [address] [place], | | | | | [address] | [place] [address] | | | | | [facility] | | | | | | and Healing, | | | | | | Building | | | | | | Floor [place], [place] | | | | | | [address] | | | | | | [phone] | | | +--------+ + + + [...]
--- OUTSIDE RECORDS SUMMARY | ~2020-01-25 | XMS | Encounter Summary ---
Demographics + + + | Address | [address] | | | [place] [address] | + + + | Home Phone [...] Providers + +------+ + | Care Neck Band Maker Name | Role | Phone | [...] Rd | | | | | | [place], [place] | | | | | | [address] | | | +--------+ + + + [...]
--- OUTSIDE RECORDS SUMMARY | ~2020-01-25 | XMS | Encounter Summary ---
Demographics + + + | Address | [address] | | | [place] [address] | + + + | Home Phone [...] Providers + +------+ + | Care Centrifugal Spinner Name | Role | Phone | [...] 12/04/ | Office | [facility] at [facility] | Lukasz Charles, | Major Depressive | | 2006 | Visit | [address] | PhD [address] | Disorder, Recurrent | | | | Center [facility] | [place], [place] | Episode, Moderate | | | | and Healing, | [address] | ([facility]); Spondylosis | | | | Building | [phone] | with Myelopathy, | | | | Floor [facility] [place] | | Lumbar Region; Left | | | | [address] | | Knee Pain; | | | | [phone] | | Adjustment Disorder | | | [...] is optimistic about her knee surgery. Diagnosis: [place] I: 1. (296.32) Major depressive disorder, recurrent, moderate. 2. (309.24) Adjustment disorder with anxiety. 3. (307.89) Chronic pain disorder associated with both psychological factors and a gene ral medical condition. [place] II: Deferred [place] III: abdominal pain, migraine headache, low back pain. [place] IV: low finances [place] V: GAF 55-60 Plan: Return in 3 months. Check mood, knee surgery, pacing, relaxation, activity, distraction. Continue cognitive/behavioral therapy. Discuss need for further sessions. Total time spent with patient was approximately 45 minutes. LUKASZ CHARLES PHD [facility] [address] [facility], [address]th [place] [address] documented in this encount er Plan of [...]
--- OUTSIDE RECORDS SUMMARY | ~2020-01-25 | XMS | Encounter Summary ---
Demographics + + + | Address | [address] | | | [place] [address] [...] Team Providers + +------+ + | Care Mechanotherapist Name | Role | Phone | + [...] + | 04/08/ | Telephone | [facility] | Alanis, | Headache | | 2016 | | MEDICINE [address] | MD Petrona | | | | | [place], | [address] [facility] | | | | | [place] [address] | [place] [address] | | | | | [phone] | [phone] | | | | | | | [...] care near her home (kiersten [address]var in [place], [place]) or go to the nearest Er. Patient was informed MD mary for the day.Maida ctronically signed by Maggie Montoya LPN at 04/08/2017 4:49 PM PDTdocumented in this [facility] Plan of Treatment +--------+---------+ + + + | Date | Type | Specialty | Care Team | Description | +--------+---------+ + + + | 02/15/ | Office | Internal Medicine | Alanis, | | | 2019 | Visit | | MD Petrona | | | | | | [address] [place] | | | | | | [place] [address] | | | | | | [phone] | | | | | | | | +--------+---------+ + + + documented as of this encounter Visit Diagnoses Not on filedocumented in this encounter"
--- OUTSIDE RECORDS SUMMARY | ~2020-01-25 | XMS | Encounter Summary ---
Demographics + + + | Address | [address] | | | [place] [address] | + + + | Home Phone [...] Providers + +------+ + | Care Cancer Registrar Name | Role | Phone | [...] | | | [facility] | [place], [place] | | | | | [address] | [address] | | | | | [address] | [phone] | | | | | Physician's | | | | | | Pavilion, 1st floor | | | | | | [place], [place] | | | | | | [address] | | | | | | [phone] | | | +--------+ + + + [...]
--- OUTSIDE RECORDS SUMMARY | ~2020-01-25 | XMS | Encounter Summary ---
Demographics + + + | Address | [address] | | | [place] [address] | + + + | Home Phone [...] Team Providers + +------+ + | Care Narrow Gauge Brakeman Name | Role | Phone | [...] of this encounter Progress Notes Interface, Research Associate Molecular Biology In - 12/09/2005 2:08 AM PDT [id number] GEOVANNI Barnes [id number] Clinic Date: 11/26/2005 Clinic: General Surgery Clinic [...] extensive workup. Prescription picked up at [facility] on November 25, 2005, for 50 oxycodone 5 mg. Melisa Thorne / SHARIF [id number] / [id number] / [id number] / [id number] Electronically signed by Kenisha Melton 12-05-2005 08:28:34 PM documented i n this encounter Plan of Treatment Not on filedocumented as of this encounter Visit Diagnoses Not on filedocumented in this encounter"
--- OUTSIDE RECORDS SUMMARY | ~2020-01-25 | XMS | Encounter Summary ---
Demographics + + + | Address | [address] | | | [place] [address] | + + + | Home Phone [...] Providers + +------+ + | Care Patient Registration Clerk Name | Role | Phone | [...] + + | 08/23/ | Telephone | [facility] | Alanis, | Medication Follow-up | | 2018 | | MEDICINE [address] | MD Petrona | (Prior | | | | [place], | [address] | Authorization | | | | [place] [address] | [place] [address] | needed) | | | | [phone] | [phone] | | | | | | | [...] 01/05/2019 4:03 PM PDTCalled Tayo Mcdonough in [place] a nd spoke to Lester, he verified [...] Petrona | | | | | | [facility] [address] | | | | | | [place] [address] | | | | | | [phone] | | | | | | | | +--------+---------+ + + + documented as of this encounter Visit Diagnoses Not on filedocumented in this encounter"
--- OUTSIDE RECORDS SUMMARY | ~2020-01-25 | XMS | Encounter Summary ---
Demographics + + + | Address | [address] | | | [place] [address] | + + + | Home Phone [...] Team Providers + +------+ + | Care Coupon Redemption Clerk Name | Role | Phone | [...] | | | | | [address] | [address] [place], [place] | | | | | [place], [place] | [address] | | | | | [address] | | | | | | [phone] | | | +--------+ + + + [...] + documented as of this encounter Progress Nikita Ambrose PharmD - 08/11/2018 8:40 AM PSTIn September 2018 the Electronic Medical Record (EMR) system used by [facility] will be updated. The category used to [...] insure continuity of care. Please contact the [facility] at with any [...] Petrona | | | | | | [facility] [address] | | | | | | [place] [address] | | | | | | [phone] | | | | | | | | +--------+---------+ + + + documented as of this encounter Visit Diagnoses Not on filedocumented in this encounter"
--- OUTSIDE RECORDS SUMMARY | ~2020-01-25 | XMS | Encounter Summary ---
[...] + +------+ + | Care Supervisor Fabrication And Assembly Name | Role | Phone | [...] 10/07/ | Office | [facility] at [facility] | Lukasz Charles, | Major Depressive | | 2006 | Visit | [address] | PhD [address] | Disorder, Recurrent | | | | Center [facility] | [place], [place] | Episode, Moderate | | | | and Healing, | [address] | ([facility]); Spondylosis | | | | Building | [phone] | with Myelopathy, | | | | Floor [facility] [place] | | Lumbar Region; | | | | [address] | | Chronic Abdominal | | | | [phone] | | Pain; Adjustment | | | [...] has plans to move the first of and she has talked with her sons [...] will need to continue self-c are. Diagnosis: [place] I: 1. (296.32) Major depressive disorder, recurrent, moderate. 2. (309.24) Adjustment disorder with anxiety. 3. (307.89) Chronic pain disorder associated with both psychological factors and a gene ral medical condition. [place] II: Deferred [place] III: abdominal pain, migraine headache, low back pain. [place] IV: low finances [place] V: GAF 50 Plan: Return in 2 weeks. Schedule 4 follow-up appointments. Check preparation for move and for niece's visit. Check Curves gym, pacing, relaxation, activity, distraction. Check "Managin g Pain..." book. Continue cognitive/behavioral therapy. Total time spent with patient was approximately 45 minutes. LUKASZ CHARLES PHD [facility] [address] [facility], [address] [place] [address] documented in this encount er Plan of [...]
--- OUTSIDE RECORDS SUMMARY | ~2020-01-25 | XMS | Encounter Summary ---
Demographics + + + | Address | [address] | | | [place] [address] | + + + | Home Phone [...] | | | | Clinical Nutrition | [place], [place] | | | | | [address] | [address] | | | | | Loop Mailcode: OPC5 | [phone] | | | | | Outpatient Clinic | | | | | | [facility] | | | | | | [place] [address] | | | | | | [phone] | | | +--------+ + + + [...] + + + | [facility] | [address] | [place] [address] | | | LABORATORY | | | [...] + + + | [facility] | [address] | [place] [address] | | | LABORATORY | | | [...] Blood Test performed by | | | [facility]. | | + + + + + + + + | Performing | Address | City/State/Zipcode | Phone Number | | Organization | | | | + + + + + | [facility] | [address] | [place] [address] | | | LABORATORY | | | | + + + + + documented in this encounter Visit Diagnoses Not on filedocumented in this encounter"
--- OUTSIDE RECORDS SUMMARY | ~2020-01-25 | XMS | Encounter Summary ---
Demographics + + + | Address | [address] | | | [place] [address] | + + + | Home Phone [...] Providers + +------+ + | Care Application Security Specialist Name | Role | Phone | [...] [id number] | | | | | | [place], [place] | | | | | | [address] | | | | | | [phone] | | | +--------+--------+ + + + [...]
--- OUTSIDE RECORDS SUMMARY | ~2020-01-25 | XMS | Encounter Summary ---
Demographics + + + | Address | [address] | | | [place] [address] | + + + | Home Phone [...] Providers + +------+ + | Care Analyst Competitive Intelligence Name | Role | Phone | [...] + + | 06/17/ | Office | [facility] | Emmy-Kamlesh, | Migraine without | | 2019 | Visit | MEDICINE [address] | MD Petrona | aura and without | | | | [address] [place], | [address] [place] | status migrainosus, | | | | [place] [address] | [place] [address] | not intractable | | | | [phone] | [phone] | (Primary Dx); | | | | [...] her lower extremities. Had an MRI of [facility] recently showing chronic d egenerative changes and disc bulges in her lower back with no significant stenosis or other acute indications for neurosurgery. Findings were similar to a previous MRI from a few year s ago. She did have back surgery in [facility] on a number of years ago. [...] apnea Spondylosis with myelopathy, lumbar region Stroke ([facility]) Syncope Tremor Type II or [...] [facility] CURRENT MEDICATIONS Current Outpatient [...] (See Comments) Confused and questionable for seizures Rgdthomasn-Mzoi-Dxodauve Hives and Rash Cephalexin Hives Ciprofloxacin Hives [...] - We'll refer for physical therapy in [place], including aquatic therapy. FOLLOW-UP Return in about 3 months (around 09/15/2018). Note: Parts of this documentwere created using [employer] speech recognition software. As a r esult, there may be unintended word spelling errors. Every attempt was made to correct the dictation. Shanta Trevino Vp [employer] - 06/17/2018 10:45 AM PSTFormatting of this note might be diff erent from the original. Administrations This Visit cyanocobalamin (VITAMIN B-12) injection 1,000 mcg Admin Date 06/17/2018 Action Given Dose 1000 mcg Route Intramuscular Administered By Shanta Whaley Vp [employer] Pt tolerated B-12 injection well. documented in this encounter Plan of Treatment +--------+---------+ + + + | Date | Type | Specialty | Care Team | Description | +--------+---------+ + + + | 02/15/ | Office | Internal Medicine | EmmyHeikeKamlesh, | | | 2019 | Visit | | MD Petrona | | | | | | [address] [place] | | | | | | [place] [address] | | | | | | [phone] | | | | | | | [...] | | First dose on [facility] 10/15/17 at 1215 | | | [...]
--- OUTSIDE RECORDS SUMMARY | ~2020-01-25 | XMS | Encounter Summary ---
Demographics + + + | Address | [address] | | | [place] [address] | + + + | Home Phone [...] Providers + +------+ + | Care Livestock Nutrition Territory Manager Name | Role | Phone | [...] | 04/26/ | Refill | [facility] | Alanis, | Medication Refill | | 2018 | | MEDICINE [address] | MD Petrona | | | | | [place], | [address] | | | | | [place] [address] | [place] [address] | | | | | [phone] | [phone] | | | | | | | [...] | | | | | [place] [address] | | | | | | [phone] | | | | | | | | +--------+---------+ + + + documented as of this encounter Visit Diagnoses Not on filedocumented in this encounter"
--- OUTSIDE RECORDS SUMMARY | ~2020-01-25 | XMS | Encounter Summary ---
Demographics + + + | Address | [address] | | | [place] [address] | + + + | Home Phone [...] Team Providers + +------+ + | Care Psychodramatist Name | Role | Phone | + [...] | | | | | | [place], | | | | | | | [place] | | | | | | | [address] | | | | | | | Phone: | | | | | | | [phone] | | | | | | | Fax: | | | | | | | [phone] | +--------+--------+ + + + + Encounter Details +--------+---------+ + + + | Date | Type | Department | Care Team | Description | +--------+---------+ + + + | 11/10/ | Office | Digestive Health | Chris Padgett, | Status Post | | 2007 | Visit | [place] [address] | [address] | Bariatric Surgery; | | | | Ave Mailcode: CH4S | [address] | Abdominal Pain, | | | | Center [facility] | [place], [place] | Other Specified Site | | | | and Healing, | [address] | | | | | Building | [phone] | | | | | Floor [place], [place] | | | | | | [address] | | | | | | [phone] | | | +--------+---------+ + + + [...]
--- OUTSIDE RECORDS SUMMARY | ~2020-01-25 | XMS | Encounter Summary ---
[...] Team Providers + +------+ + | Care Candle Wicker Name | Role | Phone | + [...] | | | | Clinical Nutrition | [place], [place] | | | | | [address] | [address] | | | | | Loop Mailcode: OPC5 | [phone] | | | | | Outpatient Clinic | | | | | | [facility] | | | | | | [place] [address] | | | | | | [phone] | | | +--------+ + + + [...] Blood Test performed by | | | [facility]. | | + + + + + + + + | Performing | Address | City/State/Zipcode | Phone Number | | Organization | | | | + + + + + | [facility] | [address] | [place] [address] | | | LABORATORY | | | [...] + + + | [facility] | [address] | [place] [address] | | | LABORATORY | | | | + + + + + documented in this encounter Visit Diagnoses Not on filedocumented in this encounter"
--- OUTSIDE RECORDS SUMMARY | ~2020-01-25 | XMS | Encounter Summary ---
Demographics + + + | Address | [address] | | | [place] [address] | + + + | Home Phone [...] Providers + +------+ + | Care Production Helper Name | Role | Phone | [...] Status Post | | 2007 | | [place] [address] | [address] [facility] | Bariatric Surgery | | | | Ave Mailcode: CH4S | [address] | (Primary Dx) | | | | [facility] | [place], [place] | | | | | and Healing, | [address] | | | | | Building 1, 6th | [phone] | | | | | Floor [place], [place] | | | | | | [address] | | | | | | [phone] | | | +--------+ + + + [...] | | | | | ng/mLPerformed by [facility] | | | | | | [facility],[address] | | | | | | Andrew, [facility] [place] [address] | | | | | | [phone] | | | | | | Sincere [...] [facility] | [address] | [place], [place] | | | UN[facility] P[facility] - INTFC | | [address] | | + + + + + [...] | + + + + + | [facility] | [address] | [place] [address] | | | LABORATORY | | | [...] RLB ([address] [facility]) | | | [facility] [place] [facility] [place] [address] | | | [place] [address] | | + + + + + + + + | Performing | Address | City/State/Zipcode | Phone Number | | Organization | | | | + + + + + | [facility] | [address] | [place] [address] | | | LABORATORY | | | [...] RL ([address] [facility]) | | | [facility] [place] [address] [address] [facility] | | | [place] [address] | | + + + + + + + + | Performing | Address | City/State/Zipcode | Phone Number | | Organization | | | | + + + + + | [facility] | [address] [facility] [address] [facility] [address] | [place] [address] | | | LABORATORY | | | [...] Performed At | + + + | [address] Estimated GFR > 60 mL/min/1.73 sq m if non- | [facility] | | [address] Estimated GFR > 60 mL/min/1.73 sq m [...] | + + + + + | [facility] DEPARTMENT OF | [address] | [place] [address] | | | PATHOLOGY | [address] | | | + + + + + | [place] DEPARTMENT | [address] | [place] [address] | | | PATHOLOGY | [address] [...] + | [facility] | [address] | [place] [address] | | | PATHOLOGY | [address] | | | + + + + + | [facility] | [address] | [place] [address] | | | PATHOLOGY | [address] | | | + + + + + documented in this encounter Visit Diagnoses + + | Diagnosis | + + | Status post bariatric surgery - Primary Bariatric surgery status | + + documented in this encounter"
--- OUTSIDE RECORDS SUMMARY | ~2020-01-25 | XMS | Encounter Summary ---
Demographics + + + | Address | [address] | | | [place] [address] | + + + | Home Phone [...] Team Providers + +------+ + | Care Enterostomal Therapy Nurse Name | Role | Phone | [...] as of this encounter Progress Notes Interface, Button Clamper In - 08/30/2005 2:07 AM PST [id number] [facility] Date: 07/24/2005 Clinic: Surgery [...] for surgery. Chris Padgett M.D. ROSA / [id number] / [id number] / [id number] / [id number] Electronically signed by Chris Padgett 08-29-2005 03:28:14 PM documented i n this encounter Plan of Treatment Not on filedocumented as of this encounter Visit Diagnoses Not on filedocumented in this encounter"
--- OUTSIDE RECORDS SUMMARY | ~2020-01-25 | XMS | Encounter Summary ---
Demographics + + + | Address | [address] | | | [place] [address] | + + + | Home Phone [...] Providers + +------+ + | Care Blow Molding Machine Tender Name | Role | Phone | + +------+ + | Sulaiman Carrera MD | PCP | | + +------+ + Encounter Details +--------+ + + + + | Date | Type | Department | Care Team | Description | +--------+ + + + + | 08/09/ | Hospital | Diagnostic Imaging | | | | 2013 | Encounter | Services at [facility] | | | | | | [address] | | | | | | Clementina Winkler HIWANG | | | | | | [facility], [address] [place] [address] | | | | | | [place], [place] | | | | | | [address] | | | | | | [phone] | | | +--------+ + + + [...]
--- OUTSIDE RECORDS SUMMARY | ~2020-01-25 | XMS | Encounter Summary ---
Demographics + + + | Address | [address] | | | [place] [address] | + + + | Home Phone [...] + +------+ + | Care Customer Service Engineer Name | Role | Phone | [...] | | | | Procedures | [facility] [place] | [address] | | | | | CONSULT TO | [address] | for Health | | | | | BONE | Phone: | and Healing, | | | | | DENSITOMETRY | [phone] | Building 1 | | | | | | Fax: | [place], [place] | | | | | | [phone] | [address] | | | | | | | Phone: | | | | | | | [phone] | | | | | | | Fax: | | | | | | | [phone] | +--------+ + + + + + [...] | | | [facility] | [place], [place] | [address] for Obesity | | | | and Healing, | [address] | | | | | [facility] | [phone] | | | | | Floor [place], [place] | | | | | | [address] | | | | | | [phone] | | | +--------+---------+ + + + [...] | | | | | changes of Oze-en-Y | | | | | | gastric [...]
--- OUTSIDE RECORDS SUMMARY | ~2020-01-25 | XMS | Encounter Summary ---
Demographics + + + | Address | [address] | | | [place] [address] | + + + | Home Phone [...] Team Providers + +------+ + | Care Stapling Machine Operator Name | Role | Phone [...] + | 06/11/ | Refill | [facility] | Alanis, | Medication Refill | | 2017 | | MEDICINE [address] | MD Petrona | | | | | [place], | [address] [facility] | | | | | [place] [address] | [place] [address] | | | | | [phone] | [phone] | | | | | | | [...] | | | | | [place] [address] | | | | | | [phone] | | | | | | | | +--------+---------+ + + + documented as of this encounter Visit Diagnoses Not on filedocumented in this encounter"
--- OUTSIDE RECORDS SUMMARY | ~2020-01-25 | XMS | Encounter Summary ---
Demographics + + + | Address | [address] | | | [place] [address] | + + + | Home Phone [...] Team Providers + +------+ + | Care Architecture Drafter Name | Role | Phone | [...] [address] | | | | | [facility] | [place], [place] | | | | | and Healing, | [address] | | | | | [facility] | [phone] | | | | | Floor [place], [place] | | | | | | [address] | | | | | | [phone] | | | +--------+ + + + [...]
--- OUTSIDE RECORDS SUMMARY | ~2020-01-25 | XMS | Encounter Summary ---
Demographics + + + | Address | [address] | | | [place] [address] | + + + | Home Phone [...] Team Providers + +------+ + | Care Schedule Manager Name | Role | Phone | [...] | 2006 | Visit | Center at [facility] | [address] | Myelopathy, Lumbar | | | | [place] [address] [place], | Region; Neck Pain; | | | | [facility] | [place] [address] | Herniated Lumbar | | | | Health and Healing, | | Intervertebral Disc | | | | Building | | L4-5; Fibromyalgia | | | | Floor [place], [place] | | syndrome 729.1; NO | | | | [address] | | DIAGNOSIS RECEIVED | | | | [phone] | | | +--------+---------+ + + + [...] Date: December 02, 2006 Patient: Belinda Meehan, [id number], 1960 I agree with the proposed Physical Therapy Treatment Plan. Provider: DELFINA BUNDY elfina Molina - 007 11:31 AM PDTThis encounter was opened in error. Please disregard this note. athalia Arora - 007 12:26 PM PDT PROGRESS NOTE: Physical Therapy Medicare Progress Note Date: 10/07/2006 Belinda Meehan [id number]. 1960 Start of Care: 06/23/2006 Referring Provider: [...] dial meniscal tear. Patient continues walking at [employer] on a daily basis, (when she is no t in [place] for appts), 30-40 minutes, and her HEP [...] ended: 115 Nathalia Arora, Physical Therapist License #[id number] documented in this encoun ter Plan of Treatment + + +--------+ + + | Name | Type | Priori | Associated Diagnoses | Order Schedule | | | | ty | | | + + +--------+ + + | [place] [facility] | Procedures | Routin | Spondylosis [...]
--- OUTSIDE RECORDS SUMMARY | ~2020-01-25 | XMS | Encounter Summary ---
Demographics + + + | Address | [address] | | | [place] [address] | + + + | Home Phone [...] Providers + +------+ + | Care Client Retention Specialist Name | Role | Phone | [...] | | | | Mailcode: CR131 | [place], [place] | | | | | Outpatient Clinic | [address] | | | | | [facility], | [phone] | | | | | [place] [address] | | | | | | [phone] | | | +--------+ + + + [...] | + + + + + | [facility] | [address] | [place] [address] | | | LABORATORY | | | | + + + + + documented in this encounter Visit Diagnoses Not on filedocumented in this encounter"
--- OUTSIDE RECORDS SUMMARY | ~2020-01-25 | XMS | Encounter Summary ---
Demographics + + + | Address | [address] | | | [place] [address] | + + + | Home Phone [...] Team Providers + +------+ + | Care Microfiche Duplicator Name | Role | Phone | [...] | Other | | 2008 | | [place] [address] | [address] | | | | | [place] Mailcode: CH4S | [address] | | | | | [facility] | [place], [place] | | | | | and Healing, | [address] | | | | | [place] [address], [facility] | [phone] | | | | | Floor [place], [place] | | | | | | [address] | | | | | | [phone] | | | +--------+ + + + [...]
--- OUTSIDE RECORDS SUMMARY | ~2020-01-25 | XMS | Encounter Summary ---
Demographics + + + | Address | [address] | | | [place] [address] [...] Providers + +------+ + | Care Patient Services Manager Name | Role | Phone [...] + + | 09/16/ | Telephone | [facility] INTER[facility] | Alanis, | Results, Imaging | | 2018 | | MEDICINE [address] | MD Petrona | | | | | [place], | [address] | | | | | [place] [address] | [place] [address] | | | | | [phone] | | | | | | | [...] done yesterday, patient can be reached at [phone] signed b jeannie Bai at 09/16/2018 12:33 [...] | | | | | [place] [address] | | | | | | [phone] | | | | | | | | +--------+---------+ + + + documented as of this encounter Visit Diagnoses Not on filedocumented in this encounter"
--- OUTSIDE RECORDS SUMMARY | ~2020-01-25 | XMS | Encounter Summary ---
Demographics + + + | Address | [address] | | | [place] [address] | + + + | Home Phone [...] + + | 02/04/ | Telephone | [facility] | Emmy-Kamlesh, | Other (Kidney pain ) | | 2017 | | MEDICINE [address] | MD [place] | | | | | [place], | [address] [facility] | | | | | [place] [address] | [place] [address] | | | | | [phone] | [phone] | | | | | | | [...] o talk to primary's nurse. Please call [phone]. documented in this encounter Plan of Treatment [...] | | | | | [place] [address] | | | | | | [phone] | | | | | | | | +--------+---------+ + + + documented as of this encounter Visit Diagnoses Not on filedocumented in this encounter"
--- OUTSIDE RECORDS SUMMARY | ~2020-01-25 | XMS | Encounter Summary ---
Demographics + + + | Address | [address] | | | [place] [address] | + + + | Home Phone [...] Team Providers + +------+ + | Care Ranch Hand Livestock Name | Role | Phone | + [...] | | | Mailcode: L223A | [place], [place] | | | | | [facility] | [address] | | | | | [address] [place], [place] | [phone] | | | | | [address] | | | | | | [phone] | | | +--------+ + + + [...]
--- OUTSIDE RECORDS SUMMARY | ~2020-01-25 | XMS | Encounter Summary ---
Demographics + + + | Address | [address] | | | [place] [address] | + + + | Home Phone [...] Team Providers + +------+ + | Care Gardening Instructor Name | Role | Phone | [...] | | [facility] | [address] [facility] | | | | | [facility] | [address] [place], | | | | | Pavilion [address] | [place] [address] | | | | | [address] | [phone] | | | | | Physician's | | | | | | Pavilion, 1st floor | | | | | | [place], [place] | | | | | | [address] | | | | | | [phone] | | | +--------+ + + + [...] | | + +---------+--------+ + + | [place] DXA BONE | Imaging | Routin | [...]
--- OUTSIDE RECORDS SUMMARY | ~2020-01-25 | XMS | Encounter Summary ---
Demographics + + + | Address | [address] | | | [place] [address] | + + + | Home Phone [...] + +------+ + | Care Director Of Career Resources Name | Role | Phone | + +------+ + | Pedrito Gutierrez MD | PCP | | + +------+ + Encounter Details +--------+ + + + + | Date | Type | Department | Care Team | Description | +--------+ + + + + | 08/04/ | Telephone | [facility] | Chris Padgett, | | | 2006 | | [place] [address] | [address] [facility] | | | | | [place] Mailcode: CH4S | [facility] | | | | | Center for [facility] | [place], [place] | | | | | and Healing, | [address] | | | | | Building | [phone] | | | | | Floor [place], [place] | | | | | | [address] | | | | | | [phone] | | | +--------+ + + + [...]
--- OUTSIDE RECORDS SUMMARY | ~2020-01-25 | XMS | Encounter Summary ---
Demographics + + + | Address | [address] | | | [place] [address] | + + + | Home Phone [...] Providers + +------+ + | Care Home Care Specialist Name | Role | Phone [...] as of this encounter Progress Notes Interface, Radiation Officer In - 01/11/2005 7:39 PM PDT Referred [...] 3-6 months time. She is coming from [place] so this can be scheduled on the same day of her physician visit. General surgery can schedule this. 5. Indra's business card with contact information for questions. Svetlana Maki R.D., LKyrie. SR/y39 P [id number] cc: documente d in this encounter Plan of Treatment Not on filedocumented as of this encounter Visit Diagnoses Not on filedocumented in this encounter"
--- OUTSIDE RECORDS SUMMARY | ~2020-01-25 | XMS | Encounter Summary ---
Demographics + + + | Address | [address] | | | [place] [address] | + + + | Home Phone [...] Team Providers + +------+ + | Care Camp Dining Room Attendant Name | Role | Phone [...] of this encounter Progress Notes Interface, City Superintendent In - 01/13/2005 9:03 AM PDT [id number] [facility] Date: 01/02/2005 Clinic: [facility] Subjective: Ms. Meehan presents today on a walk-in basis for evaluation of some discharge from her panniculectomy incisions over her medial thighs. She reports that she was in town today from [place], [place], to get some labs drawn at [facility] and decided to stop by the clinic [...] Sree Riley M.D. Chris Padgett M.D. / [id number] / [id number] / [id number] / [id number] C: 01/08/2005 cmw documented i n this encounter Plan of Treatment Not on filedocumented as of this encounter Visit Diagnoses Not on filedocumented in this encounter"
--- OUTSIDE RECORDS SUMMARY | ~2020-01-25 | XMS | Encounter Summary ---
Demographics + + + | Address | [address] | | | [place] [address] | + + + | Home Phone [...] Providers + +------+ + | Care Chassis Wirer Name | Role | Phone | + +------+ + | Sulaiman Carrera MD | PCP | | + +------+ + Encounter Details +--------+ + + + + | Date | Type | Department | Care Team | Description | +--------+ + + + + | 07/24/ | Ancillary | Registration [address]181 | [place], | | | 2006 | Registratio | [facility] | MD [address] | | | [address] | [address] Mailcode: RPB07 | [address], | | | | | [place], [place] | [place] [address] | | | | | [address] | [phone] | | | | | [phone] | | | +--------+ + + + [...] | | | | | performed at [place] | | | | | | [facility] | | | | | | Laboratory | | | | + + + + + + + + | Specimen | + + | | + + + + + + + | Performing | Address | City/State/Zipcode | Phone Number | | Organization | | | | + + + + + | [facility] | [address] | [place] [address] | | | LABORATORY | | | [...] HEALTH SYSTEM DEPARTMENT OF | [address] | [place] [address] | | | PATHOLOGY | [address] | | | + + + + + | [facility] DEPARTMENT OF | [address] | [place] [address] | | | PATHOLOGY | [address] [...] DEPARTMENT OF | [address] | [place] [address] | | | PATHOLOGY | [address] | | | + + + + + | [facility] DEPARTMENT OF | [address] [facility] [facility] | [place] [address] | | | PATHOLOGY | [address] [...] | [address] | [place] [address] | | | PATHOLOGY | [address] | | | + + + + + | [facility] DEPARTMENT OF | [address] | [place] [address] | | | PATHOLOGY | [address] | | | + + + + + PROTHROMBIN TIME (07/24/2005 5:03 PM PST) + + + + + + | Component | Value | Ref Range | Performed | Pathologist | | | | | At | Signature | + + + + + + | INR | 0.97Comment: | 0.90 - 1.20 INR | [facility] | | | | PT INR Therapeutic [...] [facility] | [address] | [place] [address] | | | PATHOLOGY | [address] | | | + + + + + | [facility] DEPARTMENT OF | [address] | [place] [address] | | | PATHOLOGY | [address] [...] [facility] | [address] | [place] [address] | | | PATHOLOGY | [address] | | | + + + + + | [facility] | [address] | [place] [address] | | | PATHOLOGY | [address] | | | + + + + + documented in this encounter Visit Diagnoses Not on filedocumented in this encounter"
--- OUTSIDE RECORDS SUMMARY | ~2020-01-25 | XMS | Encounter Summary ---
Demographics + + + | Address | [address] | | | [place] [address] | + + + | Home Phone [...] Providers + +------+ + | Care Director Imaging Name | Role | Phone | + [...] | 06/30/ | Refill | [facility] | Alanis, | Medication Refill | | 2017 | | MEDICINE [address] | MD [address]rona | | | | | [place], | [address] [facility] | | | | | [place] [address] | [place] [address] | | | | | [phone] | [phone] | | | | | | | [...] | | | | | [place] [address] | | | | | | [phone] | | | | | | | | +--------+---------+ + + + documented as of this encounter Visit Diagnoses Not on filedocumented in this encounter"
--- OUTSIDE RECORDS SUMMARY | ~2020-01-25 | XMS | Encounter Summary ---
Demographics + + + | Address | [address] | | | [place] [address] | + + + | Home Phone [...] + +------+ + | Care Sports Medicine Masseur Name | Role | Phone | + +------+ + | Sulaiman Carrera MD | PCP | | + +------+ + Encounter Details +--------+ + + + + | Date | Type | Department | Care Team | Description | +--------+ + + + + | 01/29/ | Ancillary | Registration 3181 | Beto Meeks MD | | | 2005 | Registratio | [facility] | [address] | | | | n | [place] Mailcode: RPB07 | [place], [place] | | | | | [place], [place] | [address] | | | | | [address] | [phone] | | | | | [phone] | | | +--------+ + + + [...] | | | | Test performed by [facility] | | [...] [facility] | [address] | [place], [place] | | | UNIV PTH - INTFC | | [address] | | + + + + + [...] | uIU/ml | | | | | [facility] | | | | | | Laboratories. | | | | + + + + + + + + | Specimen | + + | | + + + + + + + | Performing | Address | City/State/Zipcode | Phone Number | | Organization | | | | + + + + + | [facility] | [address] | [place] [address] | | | LABORATORY | | | [...] | + + + + + | [facility] DEPARTMENT OF | [address] [facility] | [place] [address] | | | PATHOLOGY | [address] | | | + + + + + | [facility] DEPARTMENT OF | [address] [facility] | [place] [address] | | | PATHOLOGY | [address] [...] DEPARTMENT OF | [address] | [place], [place] [address] | | | PATHOLOGY | [address] | | | + + + + + | [facility] DEPARTMENT OF | [address] | [place] [address] | | | PATHOLOGY | [address] [...] Performed At | + + + | [id number] Estimated GFR > 60 mL/min/1.73 sq m if non- | [facility] | | [id number] Estimated GFR > 60 mL/min/1.73 sq m [...] | + + + + + | [facility] DEPARTMENT OF | [address] | [place] [address] | | | PATHOLOGY | [address] | | | + + + + + | [facility] DEPARTMENT OF | [address] | [place] [address] | | | PATHOLOGY | [address] | | | + + + + + documented in this encounter Visit Diagnoses Not on filedocumented in this encounter"
--- OUTSIDE RECORDS SUMMARY | ~2020-01-25 | XMS | Encounter Summary ---
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 1960 Start of Care: 06/23/2006 Referring Provider: [...] and when she is finished at [facility] with physical therapy advised to become involved [...] [place] THERAPEUTIC | Procedures | Routin | Spondylosis [...]
--- OUTSIDE RECORDS SUMMARY | ~2020-01-25 | XMS | Encounter Summary ---
Demographics + + + | Address | [address] | | | [place] [address] | + + + | Home Phone [...] Providers + +------+ + | Care Sewer Pipe Press Operator Name | Role | Phone [...] | | | | Mailcode: L223A | [place], [place] | | | | | [facility] | [address] | | | | | [address] [place], [place] | [phone] | | | | | [address] | | | | | | [phone] | | | +--------+ + + + [...]
--- OUTSIDE RECORDS SUMMARY | ~2020-01-25 | XMS | Encounter Summary ---
Demographics + + + | Address | [address] | | | [place] [address] [...] Providers + +------+ + | Care Retail Team Leader Name | Role | Phone [...] Densitometry | | MD Beto | Density [facility] | | | | | Osteoporosis | [address] | [address] | | | | | Procedures | Ave | [address] | | | | | CONSULT TO | [place], [place] | Rd Mailcode: | | | | | BONE | [address] | [address] | | | | | DENSITOMETRY | Phone: | [address] | | | | | | [phone] | [place], [place] | | | | | | Fax: | [address] | | | | | | [phone] | Phone: | | | | | | | [phone] | | | | | | | Fax: | | | | | | | [phone] | +--------+--------+ + + + + Encounter [...] | | Clinical Nutrition | [facility], | Symptomatic | | | | [address] | [place] [address] | Menopausal or Female | | | | [facility] Mailcode: | | Climacteric States; | | | | [address] | | Disorder of Bone | | | | [facility], [place] | | and Cartilage, | | | | [address] | | Unspecified | | | | [phone] | | | +--------+---------+ + + + [...] | | + +---------+--------+ + + | [place] DXA BONE | Imaging | Routin | [...]
--- OUTSIDE RECORDS SUMMARY | ~2020-01-25 | XMS | Encounter Summary ---
Demographics + + + | Address | [address] | | | [place] [address] | + + + | Home Phone [...] + +------+ + | Care Personal Injury Legal Assistant Name | Role | Phone [...] + + | 10/19/ | Telephone | [facility] | Alanis, | Lab Order | | 2017 | | MEDICINE [address] [place] [address] | MD Petrona | | | | | [place], | [address] [facility] | | | | | [place] [address] | [place] [address] | | | | | [phone] | [phone] | | | | | | | [...] | | | | | [place] [address] | | | | | | [phone] | | | | | | | | +--------+---------+ + + + documented as of this encounter Visit Diagnoses Not on filedocumented in this encounter"
--- OUTSIDE RECORDS SUMMARY | ~2020-01-25 | XMS | Encounter Summary ---
Demographics + + + | Address | [address] | | | [place] [address] | + + + | Home Phone [...] Providers + +------+ + | Care Manager Merchandising Name | Role | Phone | + [...] Rd | | | | | | [place], [place] | | | | | | [address] | | | +--------+ + + + [...]
--- OUTSIDE RECORDS SUMMARY | ~2020-01-25 | XMS | Encounter Summary ---
Demographics + + + | Address | [address] | | | [place] [address] | + + + | Home Phone [...] + +------+ + | Care Director Of District Office Name | Role | Phone | [...] + + | 01/04/ | Office | [facility] Comprehensive | Delfina Molina, | Spondylosis with | | 2006 | Visit | Pain Center at | ANP | Myelopathy, Lumbar | | | | [facility] | | Region; Herniated | | | | [address] | | Lumbar | | | | [facility] | | Intervertebral Disc | | | | and Healing, | | L4-5; Left Knee | | | | Building | | Pain; Opioid | | | | Floor [place], [place] | | [place], | | | | [address] | | Continuous ([facility]); | | | | [phone] | | Migraine Headache; | | | | | | Fibromyalgia | | | | | | syndrome 729.1; | | | | | | Major Depressive | | | | | | Disorder, Recurrent | | | | | | Episode, Moderate | | | | | | ([facility]); Adjustment | | | | [...] Belinda Meehan is a 46 y.o. female [facility] Comprehensive Pain [...] Independent Home Exercise Program DELFINA MOLINA [facility] Pain [facility] Mail code CH 4P [facility] and [address] [address] Ailyn Foster - 01/05/20 07 [...] medication refills today? yes documented in this [facility] Plan of Treatment Not on filedocumented as [...]
--- OUTSIDE RECORDS SUMMARY | ~2020-01-25 | XMS | Encounter Summary ---
Demographics + + + | Address | [address] | | | [place] [address] | + + + | Home Phone [...] Providers + +------+ + | Care Distribution Agent Name | Role | Phone | [...] | | | | [facility] Physician's | [place], [place] | | | | | [address]ila [address] | [address] | | | | | [place], [place] | [phone] | | | | | [address] | | | | | | [phone] | | | +--------+ + + + [...] DEPARTMENT OF | [address] | [place] [address] | | | PATHOLOGY | [address] | | | + + + + + | [facility] DEPARTMENT OF | [address] | [place] [address] | | | PATHOLOGY | [address] [...] [facility] | [address] | [place] [address] | | | PATHOLOGY | [address] | | | + + + + + | [facility] | [address] | [place] [address] | | | PATHOLOGY | [address] | | | + + + + + documented in this encounter Visit Diagnoses Not on filedocumented in this encounter"
--- OUTSIDE RECORDS SUMMARY | ~2020-01-25 | XMS | Encounter Summary ---
[...] Providers + +------+ + | Care Branch Coordinator Name | Role | Phone | [...] as of this encounter Progress Notes Interface, Ocular Care Technologist In - 07/09/2005 2:07 AM PST [id number] [facility] Date: 07/03/2005 Clinic: Ms. [...] this operation. Chris Padgett M.D. ROSA / [id number] / [id number] / [id number] / [id number] Electronically signed by Chris Padgett 07-08-2005 01:45:20 PM documented i n this encounter Plan of Treatment Not on filedocumented as of this encounter Visit Diagnoses Not on filedocumented in this encounter"
--- OUTSIDE RECORDS SUMMARY | ~2020-01-25 | XMS | Encounter Summary ---
Demographics + + + | Address | [address] | | | [place] [address] | + + + | Home Phone [...] | | abdominal | [place] | [address] [facility] | | | | | pain | Health & | [facility] | | | | | Procedures | Science | Rd [place], | | | | | REQUEST TO | University | [place] | | | | | SURGERY | [address] [facility] | [address] | | | | | MARKET DEVELOPMENT MANAGER | Naeem Mcrae | Phone: | | | | | [place] | Rd | [phone] | | | | | EXPLORATORY | [place], [place] | Fax: | | | | | OF ABDOMEN | [address] | [phone] | | | | | [place] FREE[place] | | | | | | [...] | | | | | | [place], | | | | | | | [place] | | | | | | | [address] | | | | | | | Phone: | | | | | | | [phone] | | | | | | | Fax: | | | | | | | [phone] | +--------+--------+ + + + + Encounter [...] | | | [facility] | [place], [place] | | | | | and Healing, | [address] | | | | | Building 1, 6th | [phone] | | | | | Floor [place], [place] | | | | | | [address] | | | | | | [phone] | | | +--------+---------+ + + + [...] the resident s note. CHRIS RUANO MD [facility] [address] [facility], 6th [place] [address] Chris Peralta - 10:55 AM [...] not work at this time. Lives in [place], [place] FH: Noncontributory ROS: No recent fevers, [...] [facility] | [address] | [place] [address] | | | PATHOLOGY | [address] | | | + + + + + | [facility] | [address] | [place] [address] | | | PATHOLOGY | [address] [...]
--- OUTSIDE RECORDS SUMMARY | ~2020-01-25 | XMS | Encounter Summary ---
Demographics + + + | Address | [address] | | | [place] [address] | + + + | Home Phone [...] Providers + +------+ + | Care Communications Administrator Name | Role | Phone | [...] | | | Metabolism | bypass | [address] | [address] | | | | | Hypovitamino | [address], | Ave | | | | | sis D B12 | [address] | [place], [place] | | | | | nutritional | [place], [place] | [address] | | | | | deficiency | [address] | Phone: | | | | | Other | Phone: | [phone] | | | | | protein-jose manuel | [phone] | Fax: | | | | | nick | Fax: | [phone] | | | | | malnutrition | [phone] | | | | | | Weight | | | | | | | gain | | | | | | | Procedures | | | | | | | CONSULT TO | | | | | | | ENDO | | | | | | | [address] | | | | | | | [address] | | | +--------+--------+ + + + [...] | | | Center [facility] | [place], [place] | Dx); Hypothyroidism; | | | | [address] | [address] | Essential | | | | [address] | [phone] | hypertension 401.9; | | | | [facility] | | Fibromyalgia | | | | Physician's | | syndrome 729.1 | | | | Pavilion [place], | | | | | | [place] [address] | | | | | | [phone] | | | +--------+---------+ + + + [...] Hives Mainly in the legs Clindamycin Codeine Xleuznx-Npblveqvsj-Pcp-Caff Balance problems Fioricet W/Codeine (Iexxlinkar-Fjaphhyrpx-Wxy-Cod) Keflex (Cephalexin) Morphine IM ( only in [facility]) made gut pain worse 08/27/06: [...] U/L 41 ANION GAP 8 VITAMIN B12, [id number] pg/ml >2000 (H) HEMOGLOBIN A1C <=5.6 % [...] SERUM 15.0-85.0 pg/ml 222.9 (H) VITAMIN B12, [id number] pg/ml > 2000 HEMOGLOBIN A1C <=5.6 % [...]
--- OUTSIDE RECORDS SUMMARY | ~2020-01-25 | XMS | Encounter Summary ---
Demographics + + + | Address | [address] | | | [place] [address] | + + + | Home Phone [...] + +------+ + | Care Business Support Manager Name | Role | Phone | [...] | | | | | | Floor [place], [place] | | | | | | [address] | | | | | | [phone] | | | +--------+ + + + [...]
--- OUTSIDE RECORDS SUMMARY | ~2020-01-25 | XMS | Encounter Summary ---
Demographics + + + | Address | [address] | | | [place] [address] | + + + | Home Phone [...] Providers + +------+ + | Care Automotive Sales Representative Name | Role | Phone [...] | | | | | RE/Emmy | [place], [place] | [place], [place] | | | | | Procedures | [address] | [address] Phone: | | | | | NE | Phone: | [phone] | | | | | SPONTANEOUS | [phone] | Fax: | | | | | NYSTAGMUS | Fax: | [phone] | | | | | TEST NE | [phone] | | | | | | POSITIONAL | | | | | | | NYSTAGMUS | | | | | | | TEST NE | | | | | | | CALORIC | | | | | | | VESTIBULAR | | | | | | | TEST NE | | | | | | | OPTOKINETIC | | | | | | | NYSTAGMUS | | | | | | | TEST NE | | | | | | | OSCILLATING | | | | | | | TRACKING | | | | | | | TEST NE | | | | | | | SUPPLEMENTAL | | | | | | | ELECTRICAL | | | | | | | TEST NE | | | | | | | [...] + | 12/07/ | Office | [facility] | Elisabet [place], [place] | Vertigo of central | | 2015 | Visit | AUDIOLOGY AND | [facility] [address] | origin, unspecified | | | | HEARING AID SERVICES | [address] [facility] | laterality (Primary | | | | [address] | [place] [address] | Dx) | | | | [facility] | [phone] | | | | | [place] [address] | | | | | | [phone] | | | +--------+---------+ + + + [...] | | | | | [place] [address] | | | | | | [phone] | | | | | | | [...]
--- OUTSIDE RECORDS SUMMARY | ~2020-01-25 | XMS | Encounter Summary ---
Demographics + + + | Address | [address] | | | [place] [address] | + + + | Home Phone [...] Providers + +------+ + | Care Glass Maker Name | Role | Phone | [...] as of this encounter Progress Notes Interface, Hardware Engineering Manager In - 01/12/2005 9:01 AM PDT [id number] [facility] Date: 05/20/2004 Clinic: Morbid [...] Surgery Chris Padgett M.D. MS / HS [id number] / [id number] / [id number] / [id number] documented i n this encounter Plan of Treatment Not on filedocumented as of this encounter Visit Diagnoses Not on filedocumented in this encounter"
--- OUTSIDE RECORDS SUMMARY | ~2020-01-25 | XMS | Encounter Summary ---
Demographics + + + | Address | [address] | | | [place] [address] | + + + | Home Phone [...] Providers + +------+ + | Care Senior Web Applications Developer Name | Role | Phone [...] as of this encounter Progress Notes Interface, Elevated Work Platform Operator In - 01/13/2005 9:03 AM PDT [id number] [facility] Date: 01/02/2005 Clinic: [facility] Subjective: Ms. Meehan presents today on a walk-in basis for evaluation of some discharge from her panniculectomy incisions over her medial thighs. She reports that she was in town today from [place], [place], to get some labs drawn at [facility] and decided to stop by the clinic [...] Sree Riley M.D. Chris Padgett M.D. / [id number] / [id number] / [id number] / [id number] C: 01/08/2005 cmw documented i n this encounter Plan of Treatment Not on filedocumented as of this encounter Visit Diagnoses Not on filedocumented in this encounter"
--- OUTSIDE RECORDS SUMMARY | ~2020-01-25 | XMS | Encounter Summary ---
Demographics + + + | Address | [address] | | | [place] [address] | + + + | Home Phone [...] Providers + +------+ + | Care Fiberglass Roller Name | Role | Phone | [...] Specialty | Sleep | Diagnoses | | [facility] [place] | | | Services | Medicine | Diarrhea, | Emmy-Tajt | [facility] | | | Required | | unspecified | i, | Disorder [address] | | | | | type | [place] | [address] | | | | | | , MD [address] | [place], | | | | | [address] | [place] [address] | | | | | | [place], | Phone: | | | | | | [place] | [phone] | | | | | | [address] | Fax: | | | | | | Phone: | [phone] | | | | | | [phone] | | | | | | | Fax: | | | | | | | [phone] | | +--------+ + + + + + Encounter Details +--------+ + + + + | Date | Type | Department | Care Team | Description | +--------+ + + + + | 11/17/ | Orders Only | [facility] [place] [facility] | Alanis, | Diarrhea, | | 2019 | | MEDICINE [address] | MD Petrona | unspecified type | | | | [address] [place], | [address] [place] | (Primary Dx) | | | | [place] [address] | [place] [address] | | | | | [phone] | [phone] | | | | | | | [...] | | | | | [place] [address] | | | | | | [phone] | | | | | | | | +--------+---------+ + + + + + +--------+ + + | Name | Type | Priori | Associated Diagnoses | Order Schedule | | | | ty | | | + + +--------+ + + | * [facility] | Outpatient | Routin | Diarrhea, | Ordered: 11/18/2019 | | Sleep Disorder - AMB | Referral | e | unspecified type | | | Referral | | | | | + + +--------+ + + documented as of this encounter Visit Diagnoses + + | Diagnosis | + + | Diarrhea, unspecified type - Primary | + + documented in this encounter"
--- OUTSIDE RECORDS SUMMARY | ~2020-01-25 | XMS | Encounter Summary ---
Demographics + + + | Address | [address] | | | [place] [address] | + + + | Home Phone [...] Providers + +------+ + | Care Nursing Home Manager Name | Role | Phone | [...] | | | | [place], | [address] Phone: | | | | | | [place] | [phone] | | | | | | [address] | Fax: | | | | | | Phone: | [phone] | | | | | | [phone] | | | | | | | Fax: | | | | | | | [phone] | | +--------+ + + + + + Encounter Details +--------+ + + + + | Date | Type | Department | Care Team | Description | +--------+ + + + + | 12/20/ | Off-Site | [facility] | Alanis, | Follow up (Primary | | 2019 | Visit | AUDIOLOGY AND | MD Petrona | Dx); [facility] | | | | HEARING AID SERVICES | [address] [facility] | disease, unspecified | | | | [address] | [place] [address] | laterality | | | | [address] [facility] | [phone] | | | | | [place] [address] | | | | | | [phone] | Elisabet Munson [place] | | | | | | CCC-A [address] | | | | | | [address] [facility] | | | | | | [place] [address] | | | | | | [phone] | | | | | | | [...] of this encounter Progress Notes Elisabet Munson CCC-A - 12/21/2019 10:15 AM PDTReferring Provider: [...] | | | | | [place] [address] | | | | | | [phone] | | | | | | | [...]
--- OUTSIDE RECORDS SUMMARY | ~2020-01-25 | XMS | Encounter Summary ---
Demographics + + + | Address | [address] | | | [place] [address] | + + + | Home Phone [...] | [facility] | | | [...] Team Providers + +------+ + | Care Overhead Distribution Engineer Name | Role | Phone | [...] + | 08/23/ | Refill | [facility] | Alanis, | Medication Refill | | 2017 | | MEDICINE [address] | MD Petrona | | | | | [place], | [address] [facility] | | | | | [place] [address] | [place] [address] | | | | | [phone] | [phone] | | | | | | | [...] | | | | | [place] [address] | | | | | | [phone] | | | | | | | | +--------+---------+ + + + documented as of this encounter Visit Diagnoses Not on filedocumented in this encounter"
--- OUTSIDE RECORDS SUMMARY | ~2020-01-25 | XMS | Encounter Summary ---
Demographics + + + | Address | [address] | | | [place] [address] | + + + | Home Phone [...] Providers + +------+ + | Care Graphic Engineer Name | Role | Phone | [...] 07/30/ | Office | [facility] at [facility] | Lukasz Charles, | Major Depressive | | 2006 | Visit | [address] | PhD [address] | Disorder, Recurrent | | | | Center for [facility] | [place], [place] | Episode, Moderate; | | | | and Healing, | [address] | Chronic Abdominal | | | | Building | [phone] | Pain; Herniated | | | | Floor [place], [place] | | Lumbar | | | | [address] | | Intervertebral Disc | | | | [phone] | | L4-5; Spondylosis | | | [...] She set a goal to go to [place] with a friend and use pacing skills during the trip. Ms. Meehan has depression and frustration. She is having some difficulty increasing her a ctivity level but she is putting forth effort. She appears to have good insight. Diagnosis: [place] I: 1. (296.32) Major depressive disorder, recurrent, moderate. 2. (309.24) Adjustment disorder with anxiety. 3. (307.89) Chronic pain disorder associated with both psychological factors and a gene ral medical condition. Tol[place] II: Deferred [place] III: abdominal pain, migraine headache, low back pain. Tol[place] IV: low finances Toledo V: GAF 50 Plan: Return in 2 weeks. Check pacing, relaxation, activity. Check trip to [place]. Check mood. Continue cognitive/behavioral therapy. Total time spent with patient was approximately 45 minutes. LUKASZ CHARLES PHD [facility] [address] [facility] [place] [address] documented in this encount er Plan of Treatment + + +--------+ + + | Name | Type | Priori | Associated Diagnoses | Order Schedule | | | | ty | | | + + +--------+ + + | [facility], | Procedures | Routin | Major Depressive | Ordered: 07/31/2006 | | OFFICE (90-89) | | e | Disorder, Recurrent | [...]
--- OUTSIDE RECORDS SUMMARY | ~2020-01-25 | XMS | Encounter Summary ---
Demographics + + + | Address | [address] | | | [place] [address] | + + + | Home Phone [...] Providers + +------+ + | Care Store Merchandiser Name | Role | Phone | [...] as of this encounter Progress Notes Interface, Torts Law Professor In - 09/13/2005 2:06 AM PST [id number] [facility] Date: 01/02/2005 Clinic: Endocrinology [...] months. Beto Meeks M.D. PD / HS [id number] / [id number] / [id number] / [id number] cc: Chris Padgett M.D. Electronically signed by Beto Meeks 09-12-2005 02:22:56 AM documented i n this encounter Plan of Treatment Not on filedocumented as of this encounter Visit Diagnoses Not on filedocumented in this encounter"
--- OUTSIDE RECORDS SUMMARY | ~2020-01-25 | XMS | Encounter Summary ---
Demographics + + + | Address | [address] | | | [place] [address] | + + + | Home Phone [...] Team Providers + +------+ + | Care Ekg Tech Name | Role | Phone | [...] + + | 05/14/ | Telephone | [facility] | Alanis, | Referral | | 2017 | | MEDICINE [address] | MD Petrona | | | | | [place], | [address] [facility] | | | | | [place] [address] | [place] [address] | | | | | [phone] | [phone] | | | | | | | [...] in town for her appointment. Please advise [phone] documented in this encounter Plan of Treatment +--------+---------+ + + + | Date | Type | Specialty | Care Team | Description | +--------+---------+ + + + | 02/15/ | Office | Internal Medicine | Alanis, | | | 2019 | Visit | | MD [place]rona | | | | | | [address] | | | | | | [place] [address] | | | | | | [phone] | | | | | | | | +--------+---------+ + + + documented as of this encounter Visit Diagnoses Not on filedocumented in this encounter"
--- OUTSIDE RECORDS SUMMARY | ~2020-01-25 | XMS | Encounter Summary ---
Demographics + + + | Address | [address] | | | [place] [address] [...] Team Providers + +------+ + | Care Bullet Slugs Inspector Name | Role | Phone | + +------+ + | Sulaiman Carrera MD | PCP | | + +------+ + Encounter Details +--------+ + + + + | Date | Type | Department | Care Team | Description | +--------+ + + + + | 03/19/ | Ancillary | Registration [id number] | | | | 2004 | Registratio | TRACE Mcrae | | | | | n | [address] Mailcode: [id number] | | | | | | [place], [place] | | | | | | [address] | | | | | | [phone] | | | +--------+ + + + [...]
--- OUTSIDE RECORDS SUMMARY | ~2020-01-25 | XMS | Encounter Summary ---
Demographics + + + | Address | [address] | | | [place] [address] | + + + | Home Phone [...] Providers + +------+ + | Care Machine Fancy Stitcher Name | Role | Phone | [...] + | 07/14/ | Refill | [facility] | Alanis, | Medication Refill | | 2017 | | MEDICINE [address] | MD [place] | | | | | [place], | [address] [facility] | | | | | [place] [address] | [place] [address] | | | | | [phone] | [phone] | | | | | | | [...] hours PRN Quantity: unknown Pharmacy: [facility] Call/Mail/Hat Liner/Fax: fax Date of Last Refill: unknown Date [...] | | | | | [place] [address] | | | | | | [phone] | | | | | | | | +--------+---------+ + + + documented as of this encounter Visit Diagnoses Not on filedocumented in this encounter"
--- OUTSIDE RECORDS SUMMARY | ~2020-01-25 | XMS | Encounter Summary ---
Demographics + + + | Address | [address] | | | [place] [address] | + + + | Home Phone [...] Providers + +------+ + | Care Gold Cutter Name | Role | Phone | [...] | | Order | Loop Physician's | [place], [place] | | | | | [place], [facility] floor | [address] | | | | | [place], [place] | [phone] | | | | | [address] | | | | | | [phone] | | | +--------+ + + + [...]
--- OUTSIDE RECORDS SUMMARY | ~2020-01-25 | XMS | Encounter Summary ---
Demographics + + + | Address | [address] | | | [place] [address] | + + + | Home Phone [...] Providers + +------+ + | Care Manager Behavior Name | Role | Phone | + [...] | | | | [place] | [place] [address] | IDIOPATHIC; Lumbar | | | | [address] | [phone] | radiculopathy | | | | [phone] | | primarily right; S/P | | [...] blood sugars if you a re diabetic. intermediate project manager risk can lead to osteoporosis which is [...] were performed by a Dr. García in [employer]. The patient is unable to take NSAID's [...] visit. ALLERGIES: Allergies Allergen Reactions Amitriptyline Hcl Xqalkeyvdv-Tvuu-[place]negalao Cephalexin Ciprofloxacin Clarithromycin Clindamycin Hcl Codeine Sulfate [...] has no apparent deficits with short or senior care memory. She has appropriate fund of knowledge [...] PT (multiple sessions over the years) and director of career resources. Unfortunately she nelly nues to have significant [...] she is starting physical therapy again in [place]. 5. I will see the patient 2 [...] [place] | | | | | | [place] [address] | | | | | | [phone] | | | | | | | [...] 720.0 Belinda Meehan presents to the | [facility] | | fluoroscopy suite for fluoroscopically [...] ST. | [address] | [place] | [phone] | | [facility] | | [address] | | | - IMAGING | | [...] 720.0 Belinda Meehan presents to the | [facility] | | fluoroscopy suite for fluoroscopically guided bilateral sacroiliac [facility] | | joint steroid [...] ST. | [address] | [place], [place] | [phone] | | [facility] | | [address] | | | - IMAGING | | [...]
--- OUTSIDE RECORDS SUMMARY | ~2020-01-25 | XMS | Encounter Summary ---
Demographics + + + | Address | [address] | | | [place] [address] | + + + | Home Phone [...] + + | 04/06/ | Telephone | [facility] | Alanis, | Care Coordination | | 2017 | | [place] [address] [address] | MD Petrona | | | | | [place], | [address] [place] | | | | | [place] [address] | [place] [address] | | | | | [phone] | [phone] | | | | | | | [...] 04/08/18 for post operative follow up from [facility]'s bowel obstruction surgery and new report of breathing concerns. I have also encour aged her to seek medical attention sooner or EMS system if necessary for evaluation of breat campbell concerns. She reports has scheduled transportation to office visit from [place].Elect ronically signed by Erica Emerson RN at [...] | | | | | [place] [address] | | | | | | [phone] | | | | | | | | +--------+---------+ + + + documented as of this encounter Visit Diagnoses Not on filedocumented in this encounter"
--- OUTSIDE RECORDS SUMMARY | ~2020-01-25 | XMS | Encounter Summary ---
Demographics + + + | Address | [address] | | | [place] [address] | + + + | Home Phone [...] Team Providers + +------+ + | Care Cow Buyer Name | Role | Phone | [...] + | 10/05/ | Refill | [facility] | Alanis, | Medication Refill | | 2017 | | MEDICINE [address] | MD Petron[place] | | | | | [place], | [address] [facility] | | | | | [place] [address] | [place] [address] | | | | | [phone] | [phone] | | | | | | | [...] | | | | | [place] [address] | | | | | | [phone] | | | | | | | | +--------+---------+ + + + documented as of this encounter Visit Diagnoses Not on filedocumented in this encounter"
--- OUTSIDE RECORDS SUMMARY | ~2020-01-25 | XMS | Encounter Summary ---
Demographics + + + | Address | [address] | | | [place] [address] | + + + | Home Phone [...] Team Providers + +------+ + | Care Anatomic Pathology Assistant Name | Role | Phone [...] Lab findings, | | 2007 | | [facility] [address] | [address] | teaching, guidance, | | | | Ave Mailcode: [facility] | [address] | and counseling (labs | | | | [facility] | [place], [place] | done on 07/01/07) | | | | and Healing, | [address] | | | | | [facility] | [phone] | | | | | [place], [place] | | | | | | [address] | | | | | | [phone] | | | +--------+ + + + [...]
--- OUTSIDE RECORDS SUMMARY | ~2020-01-25 | XMS | Encounter Summary ---
Demographics + + + | Address | [address] | | | [place] [address] | + + + | Home Phone [...] Team Providers + +------+ + | Care Hull Drafter Name | Role | Phone | [...] | | | [facility] | [place], [place] | | | | | [address] | [address] | | | | | [address] | [phone] | | | | | [facility] | | | | | | Physician's | | | | | | Pavilion [place], | | | | | | [place] [address] | | | | | | [phone] | | | +--------+--------+ + + + [...]
--- OUTSIDE RECORDS SUMMARY | ~2020-01-25 | XMS | Encounter Summary ---
Demographics + + + | Address | [address] | | | [place] [address] | + + + | Home Phone [...] Team Providers + +------+ + | Care Vigoureux Printer Name | Role | Phone | [...] Mychal Kovacs | | | | | [facility] | [place], [place] | | | | | [address] | [address] | | | | | [address] | [phone] | | | | | [facility] | | | | | | Physician's | | | | | | Pavilion [place], | | | | | | [place] [address] | | | | | | [phone] | | | +--------+--------+ + + + [...]
--- OUTSIDE RECORDS SUMMARY | ~2020-01-25 | XMS | Encounter Summary ---
Demographics + + + | Address | [address] | | | [place] [address] | + + + | Home Phone [...] Providers + +------+ + | Care Commercial Correspondent Name | Role | Phone | [...] + + | 03/01/ | Telephone | [facility] | Alanis, | Other | | 2017 | | MEDICINE [address] | MD Petrona | | | | | [place], | [address] [facility] | | | | | [place] [address] | [place] [address] | | | | | [phone] | [phone] | | | | | | | [...] | | | | [facility] [address] | | | | | | [place] [address] | | | | | | [phone] | | | | | | | | +--------+---------+ + + + documented as of this encounter Visit Diagnoses Not on filedocumented in this encounter"
--- OUTSIDE RECORDS SUMMARY | ~2020-01-25 | XMS | Encounter Summary ---
Demographics + + + | Address | [address] | | | [place] [address] | + + + | Home Phone [...] Team Providers + +------+ + | Care Underliner Name | Role | Phone | + [...] | Osteopenia | MD Beto | Density [facility] | | | | | Procedures | [address] | [address] | | | | | CONSULT TO | Ave | [address]aeem Mcrae | | | | | BONE | [place], [place] | Rd Mailcode: | | | | | DENSITOMETRY | [address] | [address] | | | | | | Phone: | [address]aeem [address] La [address] | | | | | | [phone] | [place], [place] | | | | | | Fax: | [address] | | | | | | [phone] | Phone: | | | | | | | [phone] | | | | | | | Fax: | | | | | | | [phone] | +--------+--------+ + + + + Reason [...] | | | [address] | [address] | | | | | [address] | [phone] | | | | | [facility] | | | | | | Physician's | | | | | | Pavilion [place], | | | | | | [place] [address] | | | | | | [phone] | | | +--------+ + + + [...]
--- OUTSIDE RECORDS SUMMARY | ~2020-01-25 | XMS | Encounter Summary ---
Demographics + + + | Address | [address] | | | [place] [address] | + + + | Home Phone [...] Providers + +------+ + | Care Emergency Room Physician Name | Role | Phone | [...] + + | 07/06/ | Telephone | [facility] | Alanis, | Transfer Orders | | 2018 | | MEDICINE [address] | MD [place] | | | | | [place], | [address] [place] | | | | | [place] [address] | [place] [address] | | | | | [phone] | [phone] | | | | | | | [...] teresita persaud sent to [facility] in [facility]. Please advise. documented in this encounter [...] | | | | | [place] [address] | | | | | | [phone] | | | | | | | | +--------+---------+ + + + documented as of this encounter Visit Diagnoses Not on filedocumented in this encounter"
--- OUTSIDE RECORDS SUMMARY | ~2020-01-25 | XMS | Encounter Summary ---
Demographics + + + | Address | [address] | | | [place] [address] | + + + | Home Phone [...] Providers + +------+ + | Care Director Targeted Marketing Name | Role | Phone | [...] + + | 05/16/ | Office | [facility] | Alanis, | Chronic diarrhea | | 2019 | Visit | MEDICINE [address] [place] [address] | MD Petrona | (Primary Dx); | | | | [address] [place], | [address] [place] [address] | History of [place] | | | | [place] [address] | [place] [address] | gastric bypass; | | | | [phone] | [phone] | Fibromyalgia; Fatty | | | | [...] Common migraine COPD (chronic obstructive pulmonary disease) ([facility]) Depression Diarrhea Dumping syndrome Fall at home Fatigue fracture of vertebra Fibromyalgia Full dentures GERD (gastroesophageal reflux disease) Glaucoma Hyperparathyroidism ([facility]) Hypothyroidism IBS (irritable bowel syndrome) Idiopathic scoliosis Leg edema Low back pain Lumbar postlaminectomy syndrome Lumbar radiculopathy primarily right 01/04/2015 Meniere syndrome Migraine with aura Migraines Muscle cramping Muscle spasm Myalgia Nausea Nonalcoholic hepatosteatosis Obesity Opioid dependence ([facility]) Orthostatic hypotension OLIVER (obstructive sleep apnea) Osteoarthritis, generalized Osteopenia Osteoporosis Palpitations Peripheral neuropathy Rheumatoid arthritis ([facility]) Right arm pain 01/04/2015 RLS (restless legs syndrome) S/P lumbar fusion 01/04/2015 Scoliosis Sleep apnea Spondylosis with myelopathy, lumbar region Stroke ([facility] [...] Allergen Reactions Ensure Diarrhea Food Diarrhea Lactose Kbhrxhryqx-Vcs-Hoos-Codeine Other (See Comments) Balance problems Codeine Sulfate Nausea Only Food Allergy Formula Diarrhea Ensure Levofloxacin Hives, Itching and Rash Butalbital Ropinirole Amitriptyline Hcl Other (See Comments) Confused and questionable for seizures Cngapkfdae-Idoy-Rjeciyne Rash duplicate Nrajickfxx-Haow-Btqcamxe Hives and Rash Cephalexin Hives Ciprofloxacin Hives [...] 1. Parts of this documentwere created using eXenSa speech recognition software. As a resu lt, [...] | | | | | [place] [address] | | | | | | [phone] | | | | | | | [...]
--- OUTSIDE RECORDS SUMMARY | ~2020-01-25 | XMS | Encounter Summary ---
Demographics + + + | Address | [address] | | | [place] [address] | + + + | Home Phone [...] Providers + +------+ + | Care Warehouse General Laborer Name | Role | Phone | [...] of this encounter Progress Notes Interface, Sports Management Intern In - 01/11/2005 11:07 PM PDT Referred [...] is being seen by an orthopedist in [place]. She brings her brace today which she states is going well. The patient, however, yesterday awoke with neck stiffness and pain with spasming type pains in the area of her neck. She was seen in the emergency room last night in [place] for injection after a migraine. She states [...] Jesus M.D. Domingo Lozoya M.D. Gokul P [id number] cc: Pedrito Gutierrez MD [address] [place], [place] [id number] signed by Interface, Sports Management Intern In at 5 11:07 PM PDTdocumented in this encounter Plan of Treatment Not on filedocumented as of this encounter Visit Diagnoses Not on filedocumented in this encounter"
--- OUTSIDE RECORDS SUMMARY | ~2020-01-25 | XMS | Encounter Summary ---
Demographics + + + | Address | [address] | | | [place] [address] | + + + | Home Phone [...] Providers + +------+ + | Care Hr Advisor Name | Role | Phone | [...] | | | [facility] | [place], [place] | | | | | [address] | [address] | | | | | [address] | [phone] | | | | | Physician's | | | | | | Pavilion, 1st floor | | | | | | [place], [place] | | | | | | [address] | | | | | | [phone] | | | +--------+ + + + [...]
--- OUTSIDE RECORDS SUMMARY | ~2020-01-25 | XMS | Encounter Summary ---
Demographics + + + | Address | [address] | | | [place] [address] | + + + | Home Phone [...] Providers + +------+ + | Care Shipping Clerk Crating Name | Role | Phone | + [...] | 03/31/ | Office | [facility] Comprehensive | Delfina Molina, | Encounter for | | 2006 | Visit | Pain Center at | ANP | [facility] | | [facility] | | Use of Opioids; Left | | | | [address] | | Knee Pain; | | | | [place] for [facility] | | Arthroplasty of the | | | | and Healing, | | Left Knee; DJD | | | | Building | | (Degenerative Joint | | | | Floor [place], [place] | | Disease) of Knee; | | | | [address] | | Fibromyalgia | | | | [phone] | | syndrome 729.1; | | | [...] value in her continuing here at the [facility] until her bilateral [...] would like to anticipate follow at the [facility] in 2-3 months or sooner [...] concerns or questions. DELFINA MOLINA [facility] Mail code CH 4P [facility] and [address] [address] Tasha Can - 03/31/2007 9:15 [...]
--- OUTSIDE RECORDS SUMMARY | ~2020-01-25 | XMS | Encounter Summary ---
Demographics + + + | Address | [address] | | | [place] [address] | + + + | Home Phone [...] Providers + +------+ + | Care Telesales Manager Name | Role | Phone | [...] as of this encounter Progress Notes Interface, Taste Tester In - 03/26/2006 1:05 AM [facility] [place] [address] [place], [place] [address] or February 22, 2001 Pedrito Gutierrez M.D. [facility] [address] [place] [address] RE: BELINDA MEEHAN MR #: [id number] Dear [...] regarding this patient. Sincerely, Issac Meeks M.D. painting technician Division of Endocrinology, Diabetes, and Clinical Distribution District Supervisor, Metabolic Disorders Clinic PBD / HS [id number] / [id number] / [id number] / [id number] signed by Interface, Taste Tester In at 03/26/2006 1:05 AM PDTdocume nted in this encounter Plan of Treatment Not on filedocumented as of this encounter Visit Diagnoses Not on filedocumented in this encounter
--- OUTSIDE RECORDS SUMMARY | ~2020-01-25 | XMS | Encounter Summary ---
Demographics + + + | Address | [address] | | | [place] [address] | + + + | Home Phone [...] Providers + +------+ + | Care Rotary Drill Rig Operator Name | Role | Phone | [...] as of this encounter Progress Notes Interface, Fortune Cookie Maker In - 12/09/2005 2:08 AM PDT [id number] GEOVANNI Barnes [id number] Clinic Date: 11/26/2005 Clinic: General Surgery Clinic [...] extensive workup. Prescription picked up at [facility] on November 25, 2005, for 50 oxycodone 5 mg. Melisa Thorne / SHARIF [id number] / [id number] / [id number] / [id number] Electronically signed by Kenisha Melton 12-05-2005 08:28:34 PM documented i n this encounter Plan of Treatment Not on filedocumented as of this encounter Visit Diagnoses Not on filedocumented in this encounter"
--- OUTSIDE RECORDS SUMMARY | ~2020-01-25 | XMS | Encounter Summary ---
Demographics + + + | Address | [address] | | | [place] [address] | + + + | Home Phone [...] + +------+ + | Care Linseed Oil Press Tender Name | Role | Phone [...] Buddye | | | | | | [facility] | | | | | | and Healing, | | | | | | Building | | | | | | Floor [place], [place] | | | | | | [address] | | | | | | [phone] | | | +--------+ + + + [...]
--- OUTSIDE RECORDS SUMMARY | ~2020-01-25 | XMS | Encounter Summary ---
[...] Team Providers + +------+ + | Care Expeditionary Fighting Vehicle Crewman Name | Role | Phone | [...] | | [facility] | [place], [place] | | | | | [address] | [address] | | | | | [address] | [phone] | | | | | [facility]ician[facility] Pavilion | | | | | | Physician's | | | | | | Pavilion [place], | | | | | | [place] [address] | | | | | | [phone] | | | +--------+ + + + [...]
--- OUTSIDE RECORDS SUMMARY | ~2020-01-25 | XMS | Encounter Summary ---
Demographics + + + | Address | [address] | | | [place] [address] | + + + | Home Phone [...] Providers + +------+ + | Care Instrument Engineer Name | Role | Phone | [...] | | | [facility] | [place], [place] | | | | | [address] | [address] | | | | | [address] | [phone] | | | | | Physician's Pavilion | | | | | | Physician's | | | | | | Pavilion [place], | | | | | | [place] [address] | | | | | | [phone] | | | +--------+ + + + [...]
--- OUTSIDE RECORDS SUMMARY | ~2020-01-25 | XMS | Encounter Summary ---
Demographics + + + | Address | [address] | | | [place] [address] | + + + | Home Phone [...] Providers + +------+ + | Care Stock Or Delivery Clerk Name | Role | Phone | [...] | | | | | Encounter | [place] | | | | | for | [address] | [address] | | | | | long-term | | Phone: | | | | | (current) | | [phone] | | | | | use of other | | Fax: | | | | | medications | | [phone] | | | | | LBP (low [...] 08/09/ | Office | Pain Center at [facility] | Lukasz Charles, | Major depressive | | 2013 | Visit | [address] | PhD [address] | disorder, recurrent | | | | [facility] | [place], [place] | episode, moderate | | | | and Healing, | [address] | ([facility]) (Primary Dx); | | | | | [phone] | LBP (low back pain); | | | | Floor [place], [place] | | Fibromyalgia; | | | | [address] | | Adjustment disorder | | | | [phone] | | with anxiety | +--------+---------+ + [...] gives her a lot of motivation. Diagnosis: Coila I: 1. (296.32) Major depressive disorder, recurrent, moderate. 2. (309.24) Adjustment disorder with anxiety. Coila II: Deferred Coila III: abdominal pain, migraine headache, low back pain, fibromyalgia. Coila IV: low finances Coila V: GAF 55-60 Plan: return in 1 month. Check mood, pain, activity, stress management. Ask about any ch anges at home, taking care of her own self, sleeping. Continue cognitive/behavioral therapy . Total time spent with patient was approximately 45 minutes. LUKASZ CHARLES PHD [facility], 4th [place] [address] documented in this en counter Plan of [...]
--- OUTSIDE RECORDS SUMMARY | ~2020-01-25 | XMS | Encounter Summary ---
Demographics + + + | Address | [address] | | | [place] [address] | + + + | Home Phone [...] Team Providers + +------+ + | Care Justice Professor Name | Role | Phone | [...] Rom results of | | | | [facility] | | several radiology | | | | [address] | | studies) | | | | [facility] | | | | | | and Healing, | | | | | | Building | | | | | | Floor [place], [place] | | | | | | [address] | | | | | | [phone] | | | +--------+ + + + [...] | + +--------+ + + + | [place] MRI LOWER EXTREM | Routin | 08/22/2005 [...] | + +--------+ + + + | [place] MRI LOWER EXTREM | Routin | 03/05/2005 [...] + | NAME: BELINDA MEEHAN MR #: [id number] | [facility] | | DATE OF [...] Armaan Rivera | | | H : [id number] : 1442 Approved By: Radiologist: | | + + + + + + + + | Performing | Address | City/State/Zipcode | Phone Number | | Organization | | | | + + + + + | [facility] | [address] | [place], [place] | | | SIXES, POINT OF CARE | [address] | [address] | | | TESTS | | | | + + + + + | [facility] | [address] | [place], [place] | | | TESTS | [address] | [address] | | + + + + + [...] JESSICA[facility] | [address] | [place], [place] | | | SIXES, POINT OF CARE | [address] | [address] | | | TESTS | | | | + + + + + | [facility] | [address] | [place], [place] | | | TESTS | [address] | [address] | | + + + + + [...] By: Armaan Mata : | | | [id number] : 1137 Approved By: | | + + + + + + + + | Performing | Address | City/State/Zipcode | Phone Number | | Organization | | | | + + + + + | [facility] He[facility]ONICA | [address] | [place], [place] | | | [facility] | [address] | [address] | | | TESTS | | | | + + + + + | [facility] | [address] [facility] [address] | [place], [place] | | | TESTS | [address] | [address] | | + + + + + MRI SPINE CERVICAL WO CONTRAST (10/01/2005) + + + | Impressions | Performed At | + + + | SPINE LUMBAR 2 VIEWS AT 1421 HOURS LUMBAR SPINE, 10/01/05 | [facility] | | HISTORY: Back pain. FINDINGS: AP and lateral views of the lumbar | CARE TESTS | | spine show five fni-igp-mfyxvor lumbar vertebrae in normal alignment | | [...] SPONDYLOSIS. Transcribed By: Armaan Marcy Esperanza : [id number] : | | | 1402 Approved By: | | + + + + + + + + | Performing | Address | City/State/Zipcode | Phone Number | | Organization | | | | + + + + + | [facility] | [address] | [place], [place] | | | SIXES, POINT OF CARE | [address] | [address] | | | TESTS | | | | + + + + + | [facility] | [address] | [place], [place] | | | TESTS | [address] | [address] | | + + + + + [...] | | Transcribed By: Adriana Pacheco : [id number] : 1215 Approved By: | | | | | + + + + + + + + | Performing | Address | City/State/Zipcode | Phone Number | | Organization | | | | + + + + + | [facility] | [address] | [place], [place] | | | [facility] | [address] | [address] | | | TESTS | | | | + + + + + | [facility] | [address] | [place], [place] | | | TESTS | [address] | [address] | | + + + + + [place] MRI LOWER EXTREM JT, W/O CONTRAST (08/22/2005) + + + | Impressions | Performed At | + + + | LOWER EXTREMITY JOINT RT W/O AT 1619 HOURS RIGHT KNEE MRI, | [facility] | | 08/22/05 HISTORY: [...] | + + + + + | [facility] | [address] | [place], [place] | | | SIXES POINT OF CARE | [address] | [address] | | | TESTS | | | | + + + + + | [facility] | [address] | [place], [place] | | | TESTS | [address] | [address] | | + + + + + [...] JESSICAAM | [address] | [place], [place] | | | [facility] POINT OF CARE | [address] | [address] | | | TESTS | | | | + + + + + | [facility] | [address] | [place], [place] | | | TESTS | [address] | [address] | | + + + + + [place] MRI LOWER EXTREM JT, W/O CONTRAST (03/05/2005) [...] | | | By: Armaan Mata : [id number] : 1416 Approved By: | | + + + + + + + + | Performing | Address | City/State/Zipcode | Phone Number | | Organization | | | | + + + + + | [facility] | [address] | [place], [place] | | | [facility] | [address] | [address] | | | TESTS | | | [...] Armaan | | | Nicole Saenz : [id number] : 1555 Approved By: | | + + + + + + + + | Performing | Address | City/State/Zipcode | Phone Number | | Organization | | | | + + + + + | [facility] | [address] | [place], [place] | | | [facility] | [address] | [address] | | | TESTS | | | [...] Adriana | | | Aminata Pacheco : [id number] : 1505 Approved By: | | + + + + + + + + | Performing | Address | City/State/Zipcode | Phone Number | | Organization | | | | + + + + + | [facility] | [address] | [place], [place] | | | [place], POINT OF CARE | [address] | [address] | | | TESTS | | | | + + + + + documented in this encounter Visit Diagnoses Not on filedocumented in this encounter"
--- OUTSIDE RECORDS SUMMARY | ~2020-01-25 | XMS | Encounter Summary ---
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 female [facility] Return Visit Chief [...] these have helped improve function but not director long term care, and she reports sleeping poorly due to pain disru ption since prior visit. Since prior visit she had a 06/24/06: Bone density study and her T-Score -1.2 lumbar spine a nd -2.2 proximal femur. Collection Information Collection Date Collection Time Resulting Agency 03/10/2006 2:42 PM [facility] DEPARTMENT OF PATHOLOGY Component Results Component Value Range Status CALCIUM (LAB) 9.5 8.5 - 10.5 mg/dL Fin SPINE LUMBAR 2 VIEWS AT 1421 HOURS LUMBAR SPINE, 10/01/05 HISTORY: Back pain. FINDINGS: AP and lateral views of the lumbar spine show five ahg-tag-plazzbk lumbar vertebrae in normal alignment with no [...] spent in reviewing of chart, imaging and director counseling bureau ing/coordindation of care. 1. For the nerve [...] appropriate care and safety for your patient, [facility] r equires a [...] Please indicate and fax your response to [phone]. I called and left a message on [facility] general voice mail requesting he call me to discuss prescribing and patient care. DELFINA MOLINA [facility] Pain Center Mail code CH 4P [facility] [address] [facility] [address] Tasha Michelle - 07/30/2006 7:35 AM [...]
--- OUTSIDE RECORDS SUMMARY | ~2020-01-25 | XMS | Encounter Summary ---
[...] Team Providers + +------+ + | Care Coach Professional Athletes Name | Role | Phone | + [...] + | 05/04/ | Refill | [facility] INTER[facility] | Alanis, | Medication Refill | | 2016 | | MEDICINE [address] | MD [place] | | | | | [place], | [address] [facility] | | | | | [place] [address] | [place] [address] | | | | | [phone] | [phone] | | | | | | | [...] 02/15/ | Office | Internal Medicine | [place], | | | 2019 | Visit | | MD [place]a | | | | | | [address] | | | | | | [place] [address] | | | | | | [phone] | | | | | | | | +--------+---------+ + + + documented as of this encounter Visit Diagnoses Not on filedocumented in this encounter"
--- OUTSIDE RECORDS SUMMARY | ~2020-01-25 | XMS | Encounter Summary ---
Demographics + + + | Address | [address] | | | [place] [address] | + + + | Home Phone [...] Providers + +------+ + | Care Blade Boner Name | Role | Phone | [...] as of this encounter Progress Notes Interface, Archivist [employer] In - 01/12/2005 6:20 AM PDT [id number] [facility] Date: 11/18/2004 Clinic: General [...] The patient to send pictures to our personal financial planner and operations support specialist for evaluation for medicare for panniculectomy. [...] authorization for panniculectomy. Melisa Thorne / SHARIF [id number] / [id number] / [id number] / [id number] cc: Chris Padgett M.D. Joanna Valdez MD [facility] [address] [place] [address] Electronically signed by Kenisha Melton 11-26-2004 05:00:55 PM documented i n this encounter Plan of Treatment Not on filedocumented as of this encounter Visit Diagnoses Not on filedocumented in this encounter"
--- OUTSIDE RECORDS SUMMARY | ~2020-01-25 | XMS | Encounter Summary ---
Demographics + + + | Address | [address] | | | [place] [address] | + + + | Home Phone [...] + +------+ + | Care Director Of Psychiatry Name | Role | Phone | + [...] + + | 03/04/ | Telephone | [facility] | Alanis, | Fever | | 2017 | | MEDICINE [address] | MD Petrona | | | | | [place], | [address] [facility] | | | | | [place] [address] | [place] [address] | | | | | [phone] | [phone] | | | | | | | [...] | | | | | [place] [address] | | | | | | [phone] | | | | | | | | +--------+---------+ + + + documented as of this encounter Visit Diagnoses Not on filedocumented in this encounter"
--- OUTSIDE RECORDS SUMMARY | ~2020-01-25 | XMS | Encounter Summary ---
Demographics + + + | Address | [address] | | | [place] [address] | + + + | Home Phone [...] Providers + +------+ + | Care Job Interviewer Name | Role | Phone | + [...] 2005 | | Bariatric [address] | [address] | Pain (Primary Dx) | | | | [address] | [address] | | | | | Mailcode: L223A | [place], [place] | | | | | Physician's Sharmila | [address] | | | | | [address] [place], [place] | [phone] | | | | | [address] | | | | | | [phone] | | | +--------+ + + + [...] [facility] | [address] | [place], [place] | | | [facility] | | [address] | | + + + + + documented in this encounter Visit Diagnoses + + | Diagnosis | + + | Chronic abdominal pain - Primary Abdominal pain, unspecified site | + + documented in this encounter"
--- OUTSIDE RECORDS SUMMARY | ~2020-01-25 | XMS | Encounter Summary ---
Demographics + + + | Address | [address] | | | [place] [address] | + + + | Home Phone [...] Providers + +------+ + | Care Inspector Machined Parts Name | Role | Phone | [...] | and counseling | | | | [facility] | [place], [place] | (08/28/08 Lab | | | | and Healing, | [address] | results) | | | | [place] [address] [facility] | [phone] | | | | | [place], [place] | | | | | | [address] | | | | | | [phone] | | | +--------+ + + + [...]
--- OUTSIDE RECORDS SUMMARY | ~2020-01-25 | XMS | Encounter Summary ---
Demographics + + + | Address | [address] | | | [place] [address] | + + + | Home Phone [...] + +------+ + | Care Business Analyst Intern Name | Role | Phone | [...] | Visit | [facility] [address] | [address]ROME | Disc Disease; | | | | [address] | | Fibromyalgia | | | | Physician's | | | | | | Pavilion, 4th Floor | | | | | | [place], [place] | | | | | | [address] | | | | | | [phone] | | | +--------+---------+ + + + [...] the LBP is gone. Dr. Ricky smith [place] was her surgeon. She think s a [...] 300 mg) by oral route once daily nfzmwawfqt-sjwigeuccyxfd-swojdpot (FIORICET) 50-325-40 mg Oral Tablet take 2 [...]
--- OUTSIDE RECORDS SUMMARY | ~2020-01-25 | XMS | Encounter Summary ---
Demographics + + + | Address | [address] | | | [place] [address] | + + + | Home Phone [...] Providers + +------+ + | Care Order Make Up Clerk Name | Role | Phone | [...] | 08/16/ | Refill | [facility] | Alanis, | Medication Refill | | 2019 | | MEDICINE [address] | MD Petrona | | | | | [place], | [address] [place] | | | | | [place] [address] | [place] [address] | | | | | [phone] | [phone] | | | | | | | [...] medication remaining: none Quantity: ? Pharmacy: [facility] Call/Mail/Network Field Engineer/Fax: fax Date of Last Refill:unknown Date of [...] | | | | | [place] [address] | | | | | | [phone] | | | | | | | | +--------+---------+ + + + documented as of this encounter Visit Diagnoses Not on filedocumented in this encounter"
--- OUTSIDE RECORDS SUMMARY | ~2020-01-25 | XMS | Encounter Summary ---
Demographics + + + | Address | [address] | | | [place] [address] | + + + | Home Phone [...] Providers + +------+ + | Care Solutions Analyst Name | Role | Phone | + +------+ + | Petrona Thapa | PCP | | | MD | | | + +------+ + Reason for Visit + +--------+ + | Reason | Onset | Comments | | | Date | | + +--------+ + | Incontinence | 05/05/ | | | Supplies | 2017 | | + +--------+ + Encounter Details +--------+ + + + + | Date | Type | Department | Care Team | Description | +--------+ + + + + | 05/05/ | Telephone | [facility] | Alanis, | Incontinence | | 2018 | | MEDICINE [address] | MD Petrona | Supplies | | | | [place], | [address] [facility] | | | | | [place] [address] | [place] [address] | | | | | [phone] | [phone] | | | | | | | [...] with the nurse. Patient was calling to [facility] and see if her incontinence supplies and [...] | | | | | | [address] [facility] | | | | | | [place] [address] | | | | | | [phone] | | | | | | | [...]
--- OUTSIDE RECORDS SUMMARY | ~2020-01-25 | XMS | Encounter Summary ---
Demographics + + + | Address | [address] | | | [place] [address] | + + + | Home Phone [...] Providers + +------+ + | Care Gardening Supervisor Name | Role | Phone | [...] + | 07/27/ | Telephone | [facility] | Alanis, | Other | | 2019 | | MEDICINE [address] | MD Petrona | | | | | [place], | [address] [facility] | | | | | [place] [address] | [place] [address] | | | | | [phone] | [phone] | | | | | | | [...] receive a incontinence supplies from a new [employer] called [email or web address]? Instructed tristen de to call the [employer] and have them fax our office the [...] | | | | | [place] [address] | | | | | | [phone] | | | | | | | | +--------+---------+ + + + documented as of this encounter Visit Diagnoses Not on filedocumented in this encounter"
--- OUTSIDE RECORDS SUMMARY | ~2020-01-25 | XMS | Encounter Summary ---
Demographics + + + | Address | [address] | | | [place] [address] | + + + | Home Phone [...] Providers + +------+ + | Care Travel Accommodation Inspector Name | Role | Phone | + +------+ + | Petrona Thapa | PCP | | | MD | | | + +------+ + Reason for Visit + +--------+ + | Reason | Onset | Comments | | | Date | | + +--------+ + | Personal Problem | 08/03/ | Rash in private area | | | 2019 | | + +--------+ + Encounter Details +--------+ + + + + | Date | Type | Department | Care Team | Description | +--------+ + + + + | 08/03/ | Telephone | [facility] | Alanis, | Personal Problem | | 2018 | | MEDICINE [address] | MD Petrona | (Rash in private | | | | [address] [place], | [address] [facility] | area) | | | | [place] [address] | [place] [address] | | | | | [phone] | [phone] | | | | | | | [...] . Shania ent can be reached at [phone] signed by Sia Bai at 08/03/2018 3:30 PM PSTTelephone Encounter - Juliane Elena - 08/03/2018 12:37 PM PSTPatient called asking [...] | | | | | [place] [address] | | | | | | [phone] | | | | | | | | +--------+---------+ + + + documented as of this encounter Visit Diagnoses Not on filedocumented in this encounter
--- OUTSIDE RECORDS SUMMARY | ~2020-01-25 | XMS | Encounter Summary ---
Demographics + + + | Address | [address] | | | [place] [address] | + + + | Home Phone [...] Team Providers + +------+ + | Care Shooter Helper Name | Role | Phone | [...]
--- OUTSIDE RECORDS SUMMARY | ~2020-01-25 | XMS | Encounter Summary ---
Demographics + + + | Address | [address] | | | [place] [address] [...] Providers + +------+ + | Care Feed Mill Manager Name | Role | Phone | [...] | | Procedures | [place], | [address] Phone: | | | | | OFFICE VISIT | [place] | [phone] | | | | | REGULAR | [address] | Fax: | | | | | | Phone: | [phone] | | | | | | [phone] | | | | | | | Fax: | | | | | | | [phone] | | +--------+--------+ + + + + Encounter Details +--------+---------+ + + + | Date | Type | Department | Care Team | Description | +--------+---------+ + + + | 10/18/ | Office | [facility] | Elisabet Munson, [place] | Encounter for | | 2014 | Visit | AUDIOLOGY AND | CCC-A [address] | hearing evaluation | | | | HEARING AID SERVICES | [address] | (Primary Dx) | | | | [address] | [place] [address] | | | | | [facility] [address] | [phone] | | | | | [place] [address] | | | | | | [phone] | | | +--------+---------+ + + + [...] encounter Progress Notes Elisabet Munson, CCC-A - 10/18/2014 2:54 PM PDTReferring Provider: [...] Petrona | | | | | | [facility] [address] | | | | | | [place] [address] | | | | | | [phone] | | | | | | | [...]
--- OUTSIDE RECORDS SUMMARY | ~2020-01-25 | XMS | Encounter Summary ---
Demographics + + + | Address | [address] | | | [place] [address] | + + + | Home Phone [...] + | Care Bias Cutting Machine Operator Vertical Name | Role | Phone | + [...] | | | | pain | Jayce Hunt | [facility] [address] | | | | | Procedures | Clementina Peterson | [address] | | | | | CONSULT TO | [place] | | | | | GI PROCEDURE | [address] | [address] | | | | | UNIT: | Phone: | | | | | | COLONOSCOPY | [phone] | | | | | | | Fax: | | | | | | | [phone] | | + + + + + [...] | | | | Mailcode: L223A | [place], [place] | | | | | Physician[facility] Pavilion | [address] | | | | | [address] [place], [place] | [phone] | | | | | [address] | | | | | | [phone] | | | +--------+---------+ + + + [...] + documented in this encounter Progress Notes Kaemron Harding Md - 01/22/2006 3:20 PM PDTEstablished patient evaluation: SUBJECTIVE: Belinda Meehan is a 45 year old woman who returns to bariatric surgery clinic for follow up. She is approximately 2 years s/p lap gastric bypass and abdominoplasty. She continues to complain of chronic abdominal pain. Ms. Meehan has been seen in the [facility] emergency dept twice in the [...] REG | [address] | [place], [place] | | | [facility] | | [address] | | + + + + + documented in this encounter Visit Diagnoses + + | Diagnosis | + + | Chronic abdominal pain - Primary Abdominal pain, unspecified site | + + documented in this encounter
--- OUTSIDE RECORDS SUMMARY | ~2020-01-25 | XMS | Encounter Summary ---
Demographics + + + | Address | [address] | | | [place] [address] | + + + | Home Phone [...] Providers + +------+ + | Care Manager Story Name | Role | Phone | + +------+ + | Pedrito Gutierrez MD | PCP | | + +------+ + Encounter Details +--------+---------+ + + + | Date | Type | Department | Care Team | Description | +--------+---------+ + + + | 11/24/ | Office | Preoperative | 2, [facility] [address] | Other Specified | | 2007 | Visit | Medicine Clinic at | [facility] [address] | Pre-Operative | | | | [facility] 4th Floor [address] | [place] [address] | Examination; | | | | [address] | | Hemorrhagic Disorder | | | | Mailcode: CH4S | | due to Intrinsic | | | | [facility] | | Circulating | | | | and Healing, | | Anticoagulants | | | | Building 1,4th [facility] | | | | | | [place], [place] | | | | | | [address] | | | | | | [phone] | | | +--------+---------+ + + + [...] DEPARTMENT OF | [address] | [place] [address] | | | PATHOLOGY | [address] | | | + + + + + | [facility] DEPARTMENT OF | [address] | [place] [address] | | | PATHOLOGY | [address] [...] + + + | [facility] DEPARTMENT OF | [address] [facility] | [place] [address] | | | PATHOLOGY | [address] | | | + + + + + | [facility] DEPARTMENT OF | [address] [facility] | [place] [address] | | | PATHOLOGY | [address] [...] DEPARTMENT OF | [address] | [place] [address] | | | PATHOLOGY | [address] | | | + + + + + | [facility] DEPARTMENT OF | [address] | [place] [address] | | | PATHOLOGY | [address] [...] Performed At | + + + | [id number] Estimated GFR > 60 mL/min/1.73 sq m if non- | [facility] | | [place] [id number] Estimated GFR > 60 mL/min/1.73 sq m if | DEPARTMENT OF | | [place] GFR is estimated using the MDRD equation [...] + + | [facility] | [address] [facility] | [place] [address] | | | PATHOLOGY | [address] | | | + + + + + | [facility] | [address] [place] [address] | [place] [address] | | | PATHOLOGY | [address] [...] + + | Ordered by an | [facility] DEPT OF | | unspecified provider. Please click on view image for the detailed | CARDIOLOGY | | interpretation from idiag results. | | |results. | | | | | + + + + + + + + | Performing | Address | City/State/Zipcode | Phone Number | | Organization | | | | + + + + + | [facility] DEPT OF | [address] | [place], [place] | | | CARDIOLOGY | [address] | [address] | | + + + + + | [facility] DEPT OF | [address] | [place], [place] | | | CARDIOLOGY | [address] | [address] | | + + + + + documented in this encounter Visit Diagnoses + + | Diagnosis | + + | Other specified pre-operative examination | + + | Hemorrhagic disorder due to intrinsic circulating anticoagulants | + + documented in this encounter
--- OUTSIDE RECORDS SUMMARY | ~2020-01-25 | XMS | Encounter Summary ---
Demographics + + + | Address | [address] | | | [place] [address] | + + + | Home Phone [...] +------+ + | Care Early Childhood Education Instructor Name | Role | Phone [...] | ANP | | | | | [facility] | | | | | | [address] | | | | | | [facility] | | | | | | and Healing, | | | | | | Building , | | | | | | Floor [place], [place] | | | | | | [address] | | | | | | [phone] | | | +--------+ + + + [...]
--- OUTSIDE RECORDS SUMMARY | ~2020-01-25 | XMS | Encounter Summary ---
Demographics + + + | Address | [address] | | | [place] [address] | + + + | Home Phone [...] + +------+ + | Care Child Care Group Leader Name | Role | Phone | [...] | | | | | Floor [place], [place] | | | | | | [address] | | | | | | [phone] | | | +--------+ + + + [...]
--- OUTSIDE RECORDS SUMMARY | ~2020-01-25 | XMS | Encounter Summary ---
Demographics + + + | Address | [address] | | | [place] [address] | + + + | Home Phone [...] + +------+ + | Care Data Collection Interviewer Name | Role | Phone | [...] | | | | Clinical Nutrition | [place], [place] | | | | | [address] | [address] | | | | | Loop Mailcode: OPC5 | [phone] | | | | | Outpatient Clinic | | | | | | [facility], | | | | | | [place] [address] | | | | | | [phone] | | | +--------+ + + + [...]
--- OUTSIDE RECORDS SUMMARY | ~2020-01-25 | XMS | Encounter Summary ---
Demographics + + + | Address | [address] | | | [place] [address] | + + + | Home Phone [...] Team Providers + +------+ + | Care Codifier Name | Role | Phone | + [...] + + | 01/08/ | Telephone | [facility] | Alanis, | Results, Imaging | | 2017 | | MEDICINE [address] | MD Petrona | | | | | [place], | [address] [facility] [place] | | | | | [place] [address] | [place] [address] | | | | | [phone] | [phone] | | | | | | | [...] | | | | | [place] [address] | | | | | | [phone] | | | | | | | | +--------+---------+ + + + documented as of this encounter Visit Diagnoses Not on filedocumented in this encounter"
--- OUTSIDE RECORDS SUMMARY | ~2020-01-25 | XMS | Encounter Summary ---
[...] Team Providers + +------+ + | Care Firmware Software Verification Engineer Name | Role | Phone | + +------+ + | Pedrito Gutierrez MD | PCP | | + +------+ + Encounter Details +--------+---------+ + + + | Date | Type | Department | Care Team | Description | +--------+---------+ + + + | 07/30/ | Office | Comprehensive Pain | Nathalia Arora | Cervical Spondylosis | | 2006 | Visit | [facility] | [address] | without Myelopathy | | | | [place] [address] | Clementina Winkler [place], | (Primary Dx); | | | | [facility] for | [place] [address] | Spondylosis with | | | | Health and Healing, | | Myelopathy, Lumbar | | | | | | Region; Herniated | | | | Floor [place], [place] | | Lumbar | | | | [address] | | Intervertebral Disc; | | | | [phone] | | Unspecified Myalgia | | | [...] Medicare Progress Note Date: 07/30/2006 Belinda Meehan [id number]. 1960 Start of Care: 06/23/2006 Referring Provider: [...] 05/29/2006 Insurance: Medicare Number of used/authorized visits: 3/ Medicare certification from: 07/16/2006 through Subjective: Patient reported upon rising this am lowback pain /10, and now 7/10. "I fee l like [...] her today. Patient has multiple appts. At [facility] today, including a f/u regarding her connelly [...]
--- OUTSIDE RECORDS SUMMARY | ~2020-01-25 | XMS | Encounter Summary ---
Demographics + + + | Address | [address] | | | [place] [address] [...] Providers + +------+ + | Care Consumer Safety Inspector Name | Role | Phone | [...] + + | 05/28/ | Office | [facility] Comprehensive | Delfina Molina, | LBP (Low Back Pain); | | 2006 | Visit | Pain Center at | ANP | Bilateral Knee | | | | [facility] | | Pain; Arthroplasty | | | | [address] | | of the Left Knee; | | | | [facility] | | Encounter for | | | | and Healing, | | Long-Term (Current) | | | | Building | | Use of Opioids; | | | | Floor [place], [place] | | Migraine Headache; | | | | [address] | | Herniated Lumbar | | | | [phone] | | Intervertebral Disc | | | [...] Belinda Meehan is a 47 y.o. female [facility] Comprehensive [...] diagnostics and lab results. 6. COntinue with [facility] knee Post arthroplasty physical rehabiliation. 7. Schedule follow up in one month or sooner if needed - The pateint was asked to call the clinic with any concerns or questions. DELFINA MOLINA [facility] Mail code CH 4P [place] [facility] and [address] [address] asha Nolasco - 05/28/2007 10:01 [...] of 103.2 she was seen here at [facility] today the temp is 100.2 3. [...]
--- OUTSIDE RECORDS SUMMARY | ~2020-01-25 | XMS | Encounter Summary ---
Demographics + + + | Address | [address] | | | [place] [address] | + + + | Home Phone [...] Team Providers + +------+ + | Care Padding Gluer Name | Role | Phone | [...] + + | 09/23/ | Office | [facility] Comprehensive | Delfina Molina, | Spondylosis with | | 2006 | Visit | Pain Center at | ANP | Myelopathy, Lumbar | | | | [facility] | | Region; Herniated | | | | [address] | | Lumbar | | | | Center for [facility] | | Intervertebral Disc | | | | and Healing, | | L4-5; Right shoulder | | | | Building | | rotator cuff | | | | Floor [place], [place] | | strain; 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 Continue with [place] 10/325 1 tablet three times per day [...] leg pain History of Present Illness: Belinda Meeahn is a 46 y.o. year-old female with [...] 72 hours on schedule 2. Continue with [place] 10/325 1 tablet three times per day as needed for increased pain wit h activity. 3. Continue with Trileptal 150mg, 1 tablet twice a day 4. Continue with PT and psychology as scheduled 5. Follow up with Delfina Molina in 4 weeks or sooner if needed. 6. Continue with orthopedic and neurology evaluations as scheduled DELFINA MOLINA [facility] Comprehensive Pain Center Mail code CH 4P [place] [facility] and [address] [address] Ty Omalley - 7 9:28 [...]
--- OUTSIDE RECORDS SUMMARY | ~2020-01-25 | XMS | Encounter Summary ---
Demographics + + + | Address | [address] | | | [place] [address] | + + + | Home Phone [...] Team Providers + +------+ + | Care Tray Worker Name | Role | Phone | [...] | Pain | Diagnoses | Miracle, | [place], | | | | Management | LBP (low | NIHARIKA Jean | Lukasz Rhodes, PhD | | | | | back pain) | [address] | [address] | | | | | DJD | [address] | Ave | | | | | (degenerativ | [place], [place] | [place], [place] | | | | | e joint | [address] | [address] | | | | | disease) of | | Phone: | | | | | knee Knee | | [phone] | | | | | pain Major | | Fax: | | | | | depressive | | [phone] | | | | | disorder, | [...] 06/21/ | Office | Pain Center at [facility] | Lukasz Charles, | Major Depressive | | 2008 | Visit | [address] | PhD [address] | Disorder, Recurrent | | | | Center [facility] | [place], [place] | Episode, Mild (HCC); | | | | and Healing, | [address] | LBP (Low Back | | | | | [phone] | Pain); Migraine | | | | Floor [place], [place] | | Headache | | | | [address] | | | | | | [phone] | | | +--------+---------+ + + + [...] migraine specialist this week. She reported that [employer] has done some sewing and she found [...] benefit as she becomes more active. Diagnosis: [place] I: 1. (296.31) Major depressive disorder, recurrent, mild. 2. (309.24) Adjustment disorder with anxiety. 3. (307.89) Chronic pain disorder associated with both psychological factors and a gene ral medical condition. [place] II: Deferred [place] III: abdominal pain, migraine headache, low back pain. [place] IV: low finances [place] V: GAF 55-60 Plan: return with next medical follow-up appointment. Check mood, pain, surgical recovery , relaxation, activity, distraction, eating. Ask about headache specialist, physical therap y. Continue cognitive/behavioral therapy. Total time spent with patient was approximately 45 minutes. LUKASZ CHARLES PHD [facility], [address] [place] [address] documented in this en counter Plan of [...]
--- OUTSIDE RECORDS SUMMARY | ~2020-01-25 | XMS | Encounter Summary ---
Demographics + + + | Address | [address] | | | [place] [address] | + + + | Home Phone [...] Providers + +------+ + | Care Corporate Development Manager Name | Role | Phone [...] + | 08/14/ | Telephone | [facility] INTER[facility] | Alanis, | Lab Order | | 2017 | | MEDICINE [address] [place] [address] | MD Petrona | | | | | [place], | [address] [facility] | | | | | [place] [address] | [place] [address] | | | | | [phone] | [phone] | | | | | | | [...] order faxed to [facility] [place]. Left message on patient's voicemail elephone Encounter [...] it to be ordered for [facility] in [place] so she can go ahead and get it drawn so it can be ready and back in time for her upcoming surgery. Please call patient to gwen, . docushazia in t his encounter Plan of Treatment +--------+---------+ + + + | Date | Type | Specialty | Care Team | Description | +--------+---------+ + + + | 02/15/ | Office | Internal Medicine | Alanis, | | | 2019 | Visit | | MD Petrona | | | | | | [facility] | | | | | | [place] [address] | | | | | | [phone] | | | | | | | | +--------+---------+ + + + documented as of this encounter Visit Diagnoses + + | Diagnosis | + + | Preop examination - Primary Preoperative examination, unspecified | + + documented in this encounter"
--- OUTSIDE RECORDS SUMMARY | ~2020-01-25 | XMS | Encounter Summary ---
Demographics + + + | Address | [address] | | | [place] [address] | + + + | Home Phone [...] Team Providers + +------+ + | Care Pest Control Specialist Name | Role | Phone [...] | [address] | [facility] | Pre-Operative | | | | [address] | [facility] | Examination (Primary | | | | Mailcode: [id number] | [address] | Dx) | | | | Physician's Pavilion | [address] [place], | | | | | [place], [place] | [place] [address] | | | | | [address] | [phone] | | | | | [phone] | | | +--------+---------+ + + + [...] surgeries scheduled to take place on the buckley at the [facility]: Surgeries scheduled in the [facility] ([address] [place] [address]): registration is located on the 4th floor of [facility] (Day Surgery). Surgeries scheduled in the [facility]: registration is located on the 9th floor. Surgeries scheduled in [facility]: registration is located on the 6th floor. Surgeries scheduled in the [facility]: registration is located i n the [facility] on the first floor. For surgeries scheduled to take place at the [facility]: registration is l ocated on the 4th [...] you use specialized medical equipment at [facility], please check with your provider before [...] surgeries scheduled to take place on the buckley at the [facility]: Surgeries scheduled in the [facility] ( North): registration is located on the 4th floor of [facility] (Day Surgery). Surgeries scheduled in the [facility]: registration is located on the 9th floor. Surgeries scheduled in [facility]: registration is located on the 6th floor. Surgeries scheduled in the [facility]: registration is located i n the [facility] on the first floor. For surgeries scheduled to take place at the [facility]: registration is l [...] you use specialized medical equipment at [facility], please check with your provider before [...] Overview Note: Surgery 05/15/08 Dr Ricky Garnett [place] JEY karlos to get operative reports Osteopenia [...] 08/2007 right knee Hx lumbar fusion 05/2008 L5-S2shaitj with bone spur removals Hx appendectomy Hx [...] Morphine IM ( only in [facility]) made gut pain worse 08/27/06: Trial of oral MSIR caused leg swelling Clarithromycin Hives Mainly in the legs Xnjenzq-drrrouxmdn-gci-caff Balance problems Amitriptyline Grand mal seizures Fioricet W/codeine (Ppn-esdfrqdlfj-nxwemmdnsw-caf) FAMILY HISTORY: Family History Problem Relation Cancer [...] | | | DEPARTMENT | | | [place] | | | OF | | | [...] + + | [facility] | [address] | [place] [address] | | | PATHOLOGY | [address] | | | + + + + + | [facility] DEPARTMENT OF | [address] | [place] [address] | | | PATHOLOGY | [address] [...] DEPARTMENT OF | [address] | [place] [address] | | | PATHOLOGY | [address] | | | + + + + + | [facility] | [address] | [place] [address] | | | PATHOLOGY | [address] | | | + + + + + documented in this encounter Visit Diagnoses + + | Diagnosis | + + | Other specified pre-operative examination - Primary | + + documented in this encounter
--- OUTSIDE RECORDS SUMMARY | ~2020-01-25 | XMS | Encounter Summary ---
Demographics + + + | Address | [address] | | | [place] [address] | + + + | Home Phone [...] Providers + +------+ + | Care Supervisor Water Softener Service Name | Role | Phone | [...] | Diagnoses | Rileyacle, | Fili Pt Steel Loader | | | | Therapy | Muscle | NIHARIKA Jean | [address] | | | | | strain Neck | [address] | | | | | pain | [address] | Mailcode: | | | | | Fibromyalgia | [place], [place] | [facility] | | | | | Radicular | [address] | for Health | | | | | pain in left | | and Healing, | | | | | arm | | [address] | | | | | Procedures | | [place], [place] | | | | | PHYSICAL | | [address] | | | | | THERAPY | | Phone: | | | | | REFERRAL | | [phone] | +--------+--------+ + + + + Reason for Visit + + + | Reason | Comments | + + + | LBP - Low back pain | | + + + Encounter Details +--------+---------+ + + + | Date | Type | Department | Care Team | Description | +--------+---------+ + + + | 08/22/ | Office | [facility]AWANG Basilio | Delfina Lambert, | Muscle Strain hips; | | 2008 | Visit | Pain Center at | ANP | Fibromyalgia; Neck | | | | [facility] | | Pain; Radicular Pain | | | | [address] | | in Left Arm; | | | | Center for [facility] | | Dizziness; Black | | | | and Healing, | | Out; Falling | | | | Building | |Falling | | | | Floor [place], [place] | | | | | | [address] | | | | | | [phone] | | | +--------+---------+ + + + [...] visit Schedule MRI of the neck at [facility] Use your TENS for the muscle pain Schedule follow up after the MRI to review results documented in this encounter Progress Notes Delfina Lambert ANP - 08/22/2008 10:22 AM PDTFormatting of this note might be different fr om the original. 08/22/2008 Belinda Meehan is a 48 y.o. female [facility] Comprehensive Pain [...] drawing has be completed, which I reviewed. [facility] Brief Pain Inventory: (ten= worst [...] appointment to see lumbar spine surgery in [place] on . Psychiatric History: depressed mood, sleep [...] 278 01/18 Paniculectomy Hx lumbar fusion 05/2008 L5-V0evizkt with bone spur removals Family History Problem [...] get the MRI results befor planning [facility]. Belinda was compliant with all aspects [...] COMPREHENSIVE [facility] Mail code CH 4P [facility] [address] Ailyn Foster - 03/2009 9:30 AM [...] | | + +---------+ + + | [facility] DEPARTMENT OF | | | [...]
--- OUTSIDE RECORDS SUMMARY | ~2020-01-25 | XMS | Encounter Summary ---
Demographics + + + | Address | [address] | | | [place] [address] | + + + | Home Phone [...] Providers + +------+ + | Care Technology Instructor Name | Role | Phone [...] | | | | [address] | [place] [address] | | | | | | [place], | Phone: | | | | | | [place] | [phone] | | | | | | [address] | Fax: | | | | | | Phone: | [phone] | | | | | | [phone] | | | | | | | Fax: | | | | | | | [phone] | | +--------+ + + + + [...] | | [place] [address] | [place] [address] | laterality (Primary | | | | [address] | [phone] | Dx); Dysfunction of | | | | [phone] | | left eustachian tube | +--------+---------+ [...] negative nichole ft to it. Her speech latex foam worker threshold is 20 dB in the right [...] | | | | | [place] [address] | | | | | | [phone] | | | | | | | | +--------+---------+ + + + + + +--------+ + + | Name | Type | Priori | Associated Diagnoses | Order Schedule | | | | ty | | | + + +--------+ + + | * TAHIR NDIAYE | Outpatient | Routin | Vertigo [...]
--- OUTSIDE RECORDS SUMMARY | ~2020-01-25 | XMS | Encounter Summary ---
Demographics + + + | Address | [address] | | | [place] [address] | + + + | Home Phone [...] + + | 10/13/ | Telephone | [facility] | Alanis, | Appointment Question | 2019 | | [facility] [address] | MD Petrona | | | | | [place], | [address] [place] | | | | | [place] [address] | [place] [address] | | | | | [phone] | [phone] | | | | | | | [...] back stating is being seen by her armed custom protection officer today. Please advise. elephone Encounter - Alan [...] | | | | | [place] [address] | | | | | | [phone] | | | | | | | | +--------+---------+ + + + documented as of this encounter Visit Diagnoses Not on filedocumented in this encounter"
--- OUTSIDE RECORDS SUMMARY | ~2020-01-25 | XMS | Encounter Summary ---
Demographics + + + | Address | [address] | | | [place] [address] | + + + | Home Phone [...] Providers + +------+ + | Care Ophthalmic Technician Apprentice Name | Role | Phone [...] [address] | | | | | [place], [place] | [place], [place] | | | | | [address] | [address] | | | | | [phone] | [phone] | | | | | | | [...] | + +---------+ + + | [facility] DEPARTMENT OF | | | | | RADIOLOGY | | | | + +---------+ + + documented in this encounter Visit Diagnoses Not on filedocumented in this encounter"
--- OUTSIDE RECORDS SUMMARY | ~2020-01-25 | XMS | Encounter Summary ---
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
--- OUTSIDE RECORDS SUMMARY | ~2020-01-25 | XMS | Encounter Summary ---
Demographics + + + | Address | [address] | | | [place] [address] | + + + | Home Phone [...] Team Providers + +------+ + | Care Scarrer Name | Role | Phone | + [...] + | 07/30/ | Office | [facility] Comprehensive | Delfina Molina, | Cervical Spondylosis | | 2006 | Visit | Pain Center at | ANP | without Myelopathy | | | | [facility] | | (Primary Dx); Right | | | | [address] | | shoulder rotator | | | | [place] 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 female [facility] Return Visit Chief Complaint: [...] these have helped improve function but not oil laboratory analyst, and she reports sleeping poorly due to pain disru ption since prior visit. Since prior visit she had a 06/24/06: Bone density study and her T-Score -1.2 lumbar spine a nd -2.2 proximal femur. Collection Information Collection Date Collection Time Resulting Agency 03/10/2006 2:42 PM [facility] DEPARTMENT OF PATHOLOGY Component Results Component Value Range Status CALCIUM (LAB) 9.5 8.5 - 10.5 mg/dL Fin SPINE LUMBAR 2 VIEWS AT 1421 HOURS LUMBAR SPINE, 10/01/05 HISTORY: Back pain. FINDINGS: AP and lateral views of the lumbar spine show five frp-ygb-eexjejv lumbar vertebrae in normal alignment with no [...] appropriate care and safety for your patient, [facility] r equires a primary [...] Please indicate and fax your response to [phone]. I called and left a message on [facility] general voice mail requesting he call me to discuss prescribing and patient care. DELFINA MOLINA [facility] Center Mail code CH 4P [facility] [address] [facility] [address] Tasha Michelle - 07/30/2006 7:35 AM [...]
--- OUTSIDE RECORDS SUMMARY | ~2020-01-25 | XMS | Encounter Summary ---
Demographics + + + | Address | [address] | | | [place] [address] | + + + | Home Phone [...] Team Providers + +------+ + | Care Transformation Consultant Name | Role | Phone | [...] + + | 04/08/ | Telephone | [facility] Division of | Carlos Arreola, | Swelling | | 2005 | | Gastroenterology/Hep | [address] | (ANDREEA) | | | | atology [address] | [address] | | | | | [address] | [place] [address] | | | | | Mailcode: PV310 | [phone] | | | | | Physician's Pavilion | | | | | | [address] | | | | | | [place], [place] | | | | | | [address] | | | | | | [phone] | | | +--------+ + + + [...]
--- OUTSIDE RECORDS SUMMARY | ~2020-01-25 | XMS | Encounter Summary ---
Demographics + + + | Address | [address] | | | [place] [address] | + + + | Home Phone [...] +------+ + | Care Oil And Gas Principal Name | Role | Phone | [...] Progress Notes Interface, Store Merchandiser In - 10/15/2005 2:06 AM PDT [id number] [facility] Date: 09/18/2005 Clinic: Ms. [...] about a month. Chris Padgett M.D. / [id number] / [id number] / [id number] / [id number] Electronically signed by Chris Padgett 10-14-2005 08:13:46 AM documented i n this encounter Plan of Treatment Not on filedocumented as of this encounter Visit Diagnoses Not on filedocumented in this encounter"
--- OUTSIDE RECORDS SUMMARY | ~2020-01-25 | XMS | Encounter Summary ---
Demographics + + + | Address | [address] | | | [place] [address] | + + + | Home Phone [...] Providers + +------+ + | Care Vp Talent Management Name | Role | Phone [...] | at [place] | [facility] | | | | | [address] | [place] [address] | | | | | [address] | | | | | | [place], 2nd floor | | | | | | [place], [place] | | | | | | [address] | | | | | | [phone] | | | +--------+ + + + [...]
--- OUTSIDE RECORDS SUMMARY | ~2020-01-25 | XMS | Encounter Summary ---
Demographics + + + | Address | [address] | | | [place] [address] | + + + | Home Phone [...] Team Providers + +------+ + | Care Refinery Operator Assistant Name | Role | Phone | [...] | | | | [address] Physician's | [place], [place] | | | | | [address] | [address] | | | | | [place], [place] | [phone] | | | | | [address] | | | | | | [phone] | | | +--------+ + + + [...] | + + + + + | [facility] DEPARTMENT OF | [address] | [place] [address] | | | PATHOLOGY | [address] | | | + + + + + | [facility] DEPARTMENT OF | [address] | [place] [address] | | | PATHOLOGY | [address] [...] + + | [facility] DEPARTMENT OF | [facility] | [place] [address] | | | PATHOLOGY | [address] | | | + + + + + | [place] DEPARTMENT OF | [facility] | [place] [address] | | | PATHOLOGY | [address] [...] + + | [facility] DEPARTMENT OF | [address] | [place] [address] | | | PATHOLOGY | [address] | | | + + + + + | [facility] DEPARTMENT OF | [address] [facility] | [place] [address] | | | PATHOLOGY | [address] [...] + + | [facility] DEPARTMENT OF | [address] | [place], [place] [address] | | | PATHOLOGY | [address] | | | + + + + + | [facility] DEPARTMENT OF | [address] | [place] [address] | | | PATHOLOGY | [address] [...] [facility] | [address] | [place] [address] | | | PATHOLOGY | [address] | | | + + + + + | [facility] | [address] | [place] [address] | | | PATHOLOGY | [address] | | | + + + + + documented in this encounter Visit Diagnoses Not on filedocumented in this encounter"
--- OUTSIDE RECORDS SUMMARY | ~2020-01-25 | XMS | Encounter Summary ---
Demographics + + + | Address | [address] | | | [place] [address] | + + + | Home Phone [...] Team Providers + +------+ + | Care Pay Agent Name | Role | Phone | [...] + + | 05/29/ | Office | [facility] | Delfina Molina, | Chronic Abdominal | | 2005 | Visit | Pain Center at | ANP | Pain; Cervical Pain; | | | | [facility] | | Joint pain 719.40; | | | | [address] | | Depression | | | | [place] for [facility] | | | | | | and Healing, | | | | | | Building | | | | | | Floor [place], [place] | | | | | | [address] | | | | | | [phone] | | | +--------+---------+ + + + [...] Physical Therapy evaluation here at the [facility] in [place]. 3. Patient will be referred for a Psychology evaluation here at the [facility] Pain [facility]. 4. Following the completion of these [...] Belinda Meehan is a 46 y.o. female [id number] Chief Complaint: Patient presents with: Pain - [...] as PAIN MEDICINES: Opioids: Hydrocodone (Vicodin, Lortab, [place]): Why stopped?: don't remember. Came off due [...] HX SALPINGO-OOPHORECTOMY COLONOSCOPY Comment: 03/2006 HX TONSILLECTOMY VT D&C AFTER DELIVERY VT INJECT TRIGGER POINT, 1 OR 2 Family [...] a Physical Therapy evaluation here at the [facility]. 3. Patient will be referred for a Psychology evaluation here at the [facility] Pain [facility] er. 4. Following the completion of [...] you for referring [facility] [place] for a chronic pain management evaluation. I trust that you will find the recomm endations satisfactory and that you will be able to implement these in the care of your mehreen ent. Should you have any concerns or questions, please contact me, I would be happy to add ress those with you. DELFINA MOLINA [facility] Pain [place] Mail code CH 4P [place] [facility] [address] [place] [address] meryTasha - 05/29/2006 1:51 PM PSTInitial [...] drinking? no -Do you ever drink an eye-electric switch tester in the morning to relieve the shakes? [...] stressful life experiences recently? yes If yes, explain:lumber planer brigida pain GOALS AND EXPECTATIONS 23. What do you expect from our pain program? Help in coping with the pain 24. What types of treatment do you expect from your visits to the [facility] Center ? Stress Management documented [...]
--- OUTSIDE RECORDS SUMMARY | ~2020-01-25 | XMS | Encounter Summary ---
Demographics + + + | Address | [address] | | | [place] [address] | + + + | Home Phone [...] Providers + +------+ + | Care Tax Compliance Representative Name | Role | Phone | [...] + + | 10/05/ | Telephone | [facility] | Alanis, | Injections | | 2019 | | MEDICINE [address] | MD [place] | | | | | [place], | [address] [facility] | | | | | [place] [address] | [place] [address] | | | | | [phone] | [phone] | | | | | | | [...] of this encounter Miscellaneous Notes Telephone Encounter Maggie Ji LPN - 10/06/2019 4:40 PM PDTLeft message [...] | | | | | [place] [address] | | | | | | [phone] | | | | | | | | +--------+---------+ + + + documented as of this encounter Visit Diagnoses Not on filedocumented in this encounter"
--- OUTSIDE RECORDS SUMMARY | ~2020-01-25 | XMS | Encounter Summary ---
Demographics + + + | Address | [address] | | | [place] [address] | + + + | Home Phone [...] Providers + +------+ + | Care Electronics Utility Worker Name | Role | Phone [...] | Epigastric | T, ANP | [address] | | | | | pain Status | [place], [place] | [address] | | | | | post | [address] | [place] | | | | | bariatric | | [place], 4th | | | | | surgery | | floor | | | | | Procedures | | [place], [place] | | | | | CONSULT TO | | [address] | | | | | GI PROCEDURE | | Phone: | | | | | UNIT: EGD | | [phone] | | | | | | | Fax: | | | | | | | [phone] | +--------+--------+ + + + + Reason [...] | | | | | | Rd [place], | | | | | | | [place] | | | | | | | [address] | | | | | | | Phone: | | | | | | | [phone] | | | | | | | Fax: | | | | | | | [phone] | +--------+--------+ + + + + Encounter Details +--------+---------+ + + + | Date | Type | Department | Care Team | Description | +--------+---------+ + + + | 08/28/ | Office | Digestive Health | Chris Padgett, | Epigastric Pain | | 2008 | Visit | [place] [address] | [address] | (Primary Dx); Status | | | | Ave Mailcode: CH4S | [facility] [address] | Post Bariatric | | | | Center for [facility] | [place], [place] | Surgery | | | | and Healing, | [address] | | | | | | [phone] | | | | | [place], [place] | | | | | | [address] | | | | | | [phone] | | | +--------+---------+ + + + [...] + + +--------+ + + | DE [facility]ER GI | Procedures | Routin | [...] Performed At | + + + | [id number] Estimated GFR > 60 mL/min/1.73 sq m if non- | [facility] | | [place] [id number] Estimated GFR > 60 mL/min/1.73 sq m if | DEPARTMENT OF | | [place] GFR is estimated using the MDRD equation [...] | [facility] | [address] | [place] [address] | | | PATHOLOGY | [address] | | | + + + + + | [facility] | [address] | [place] [address] | | | PATHOLOGY | [address] | | | + + + + + documented in this encounter Visit Diagnoses + + | Diagnosis | + + | Epigastric pain - Primary Abdominal pain, epigastric | + + | Status post bariatric surgery Bariatric surgery status | + + documented in this encounter"
--- OUTSIDE RECORDS SUMMARY | ~2020-01-25 | XMS | Encounter Summary ---
Demographics + + + | Address | [address] | | | [place] [address] | + + + | Home Phone [...] | | | | | | [place], [place] | | | | | | [address] | | | +--------+ + + + [...]
--- OUTSIDE RECORDS SUMMARY | ~2020-01-25 | XMS | Encounter Summary ---
Demographics + + + | Address | [address] | | | [place] [address] | + + + | Home Phone [...] Providers + +------+ + | Care Legal Document Assistant Name | Role | Phone | + +------+ + | Pedrito Gutierrez MD | PCP | | + +------+ + Encounter Details +--------+---------+ + + + | Date | Type | Department | Care Team | Description | +--------+---------+ + + + | 02/01/ | Office | Dig[facility]ive [facility] | Chris Padgett, | Status Post | | 2006 | Visit | [place] [address] | [address] | Bariatric Surgery; | | | | Ave Mailcode: CH4S | [address] | Follow-Up | | | | Center for [facility] | [place], [place] | Examination | | | | and Healing, | [address] | Following Surgery | | | | Building | [phone] | | | | | Floor [place], [place] | | | | | | [address] | | | | | | [phone] | | | +--------+---------+ + + + [...] history of intermittent abdominal pain comes to [facility] for 3 mo f/u evaluation with [...]
--- OUTSIDE RECORDS SUMMARY | ~2020-01-25 | XMS | Encounter Summary ---
Demographics + + + | Address | [address] | | | [place] [address] | + + + | Home Phone [...] Providers + +------+ + | Care Spring Manufacturing Set Up Technician Name | Role | Phone | [...] 08/12/ | Office | Pain Center at [facility] | Lukasz Charles, | Major Depressive | | 2006 | Visit | [address] | PhD [address] | Disorder, Recurrent | | | | Center for Health | [place], [place] | Episode, Moderate | | | | and Healing, | [address] | ([facility]); Neck Pain; | | | | | [phone] | Migraine Headache; | | | | Floor [place], [place] | | Spondylosis with | | | | [address] | | Myelopathy, Lumbar | | | | [phone] | | Region; Adjustment | | | [...] is making an effort to improve. Diagnosis: [employer] I: 1. (296.32) Major depressive disorder, recurrent, moderate. 2. (309.24) Adjustment disorder with anxiety. 3. (307.89) Chronic pain disorder associated with both psychological factors and a gene ral medical condition. [employer] II: Deferred [employer] III: abdominal pain, migraine headache, low back pain. [employer] IV: low finances [employer] V: [employer] Plan: Return in 2 weeks. Check pacing, relaxation, activity, distraction. Ask about coping with previous headache. Continue cognitive/behavioral therapy. Total time spent with patient was approximately 45 minutes. [facility]ASZ [facility], [address]th [place] [address] documented in this encount er Plan of [...]
--- OUTSIDE RECORDS SUMMARY | ~2020-01-25 | XMS | Encounter Summary ---
Demographics + + + | Address | [address] | | | [place] [address] | + + + | Home Phone [...] Team Providers + +------+ + | Care Monitoring Engineer Name | Role | Phone | [...] | 2006 | Visit | [facility] at [facility] | MD Darrion,PhD [address] | Deconditioning; | | | | for Health and | [address] | Physical | | | | Healing [address] | [place], [place] | Deconditioning | | | | [facility] | [address] | | | | | Health and Healing, | [phone] | | | | | | | | | | | Floor [place], [place] | | | | | | [address] | | | | | | [phone] | | | +--------+---------+ + + + [...] and neurology assessment. Angel Morales M.D., Ph.D. Lead Programmer Analyst, Surgical Warehouse Sorter Orthopedics & Cartilage Reconstruction Surgery Department of Orthopedics [email or web address] documented in this encou nter Plan of Treatment Not on filedocumented as of this encounter Visit Diagnoses + + | Diagnosis | + + | Muscular deconditioning Muscular wasting and disuse atrophy, not elsewhere classified | + + | Physical deconditioning Muscular wasting and disuse atrophy, not elsewhere classified | + + documented in this encounter"
--- OUTSIDE RECORDS SUMMARY | ~2020-01-25 | XMS | Encounter Summary ---
Demographics + + + | Address | [address] | | | [place] [address] | + + + | Home Phone [...] Providers + +------+ + | Care Office Associate Name | Role | Phone | [...] | | | | | hemorrhoid | [place], [place] | [address] | | | | | Rectal pain | [address] | [facility] | | | | | Procedures | | Rd [place], | | | | | CONSULT TO | | [place] | | | | | COLORECTAL | | [address] | | | | | SURGERY | | Phone: | | | | | | | [phone] | | | | | | | Fax: | | | | | | | [phone] | +--------+--------+ + + + + Encounter Details +--------+---------+ + + + | Date | Type | Department | Care Team | Description | +--------+---------+ + + + | 10/03/ | Office | Digestive Health | Bandar Valenzuela, | Anal or Rectal Pain | | 2008 | Visit | Center at [facility] [address] | [address] | (Primary Dx) | | | | [address] [employer] | [facility] [address] | | | | | for Health and | [place], [place] | | | | | [facility], [facility] 2 | [address] | | | | | [place], [place] | [phone] | | | | | [address] | | | | | | [phone] | | | +--------+---------+ + + + [...] stool. She had a normal colonoscopy at [facility] in 2005 PMH: Past Medical History [...] 08/2007 right knee Hx lumbar fusion 05/2008 L5-L4mxgihm with bone spur removals Hx appendectomy Hx [...] (Ciprofloxacin) Tramadol Morphine IM ( only in [facility]) made gut pain worse 08/27/06: Trial of oral MSIR caused leg swelling Clarithromycin Hives Mainly in the legs Uzektfa-grwjotwusv-unx-caff Balance problems Amitriptyline Grand mal seizures SH: [...] + + +--------+ + + | [facility] | Procedures | Routin | Anal or Rectal | Ordered: 10/05/2008 | | ANOSCOPY | | e | Pain | | + + +--------+ + + documented as of this encounter Visit Diagnoses + + | Diagnosis | + + | Anal or rectal pain - Primary | + + documented in this encounter
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
--- OUTSIDE RECORDS SUMMARY | ~2020-01-25 | XMS | Encounter Summary ---
Demographics + + + | Address | [address] | | | [place] [address] | + + + | Home Phone [...] pneumonia, | | | | Avjennifer Mailcode: [place] | [address] | wants to get back on | | | | [facility] | [place], [place] | vitamins) | | | | and Healing, | [address] | | | | | [place] [address] [facility] | [phone] | | | | | Floor [place], [place] | | | | | | [address] | | | | | | [phone] | | | +--------+ + + + [...]
--- OUTSIDE RECORDS SUMMARY | ~2020-01-25 | XMS | Encounter Summary ---
Demographics + + + | Address | [address] | | | [place] [address] | + + + | Home Phone [...] Providers + +------+ + | Care Certified Master Safecracker Name | Role | Phone | + [...] + | 04/26/ | Refill | [facility] | Alanis, | Medication Refill | | 2017 | | MEDICINE [address] | MD [place] | | | | | [place], | [address] [facility] | | | | | [place] [address] | [place] [address] | | | | | [phone] | [phone] | | | | | | | [...] | | | | | [place] [address] | | | | | | [phone] | | | | | | | | +--------+---------+ + + + documented as of this encounter Visit Diagnoses Not on filedocumented in this encounter"
--- OUTSIDE RECORDS SUMMARY | ~2020-01-25 | XMS | Encounter Summary ---
Demographics + + + | Address | [address] | | | [place] [address] | + + + | Home Phone [...] Team Providers + +------+ + | Care Completions Engineer Name | Role | Phone | [...] 10/22/ | Telephone | Neurology at | Taniya Guerrero, | Discussion | | 2007 | | [facility] & | | | | | | [address] | | | | | | [facility] | | | | | | Health and Healing, | | | | | | Building 1, | | | | | | Floor [place], [place] | | | | | | [address] | | | | | | [phone] | | | +--------+ + + + [...]
--- OUTSIDE RECORDS SUMMARY | ~2020-01-25 | XMS | Encounter Summary ---
Demographics + + + | Address | [address] | | | [place] [address] | + + + | Home Phone [...] Providers + +------+ + | Care Furnace Operator [employer] Name | Role | Phone | + [...] | [facility] [address] [place], | Region; Herniated | | | | [address] [place] for | [place] [address] | Lumbar | | | | Health and Healing, | | Intervertebral Disc | | | | | | L4-5; Neck Pain; | | | | Floor [place], [place] | | Fibromyalgia | | | | [address] | | syndrome 729.1 | | | | [phone] | | | +--------+---------+ + + + [...] Medicare Progress Note Date: 09/23/2006 Belinda Meehan [id number]. 1960 Start of Care: 06/23/2006 Referring Provider: [...] 05/29/2006 Insurance: Medicare Number of used/authorized visits: 8/9 Medicare certification from: 09/13/2006 through 10/12/2006 Subjective: [...] patient has increased her walking time at [facility] to 30-40 minutes daily, no t able [...] [facility] | Procedures | Routin | Spondylosis [...] [facility] TH[facility] | Procedures | Routin | Spondylosis [...]
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
--- OUTSIDE RECORDS SUMMARY | ~2020-01-25 | XMS | Encounter Summary ---
Demographics + + + | Address | [address] | | | [place] [address] | + + + | Home Phone [...] Providers + +------+ + | Care Manager Marketing Sales Name | Role | Phone | [...] [address] | | | | | [place], [place] | [place], [place] | | | | | [address] | [address] | | | | | [phone] | [phone] | | | | | | | [...]
--- OUTSIDE RECORDS SUMMARY | ~2020-01-25 | XMS | Encounter Summary ---
Demographics + + + | Address | [address] | | | [place] [address] | + + + | Home Phone [...] Providers + +------+ + | Care Advertising Inserter Name | Role | Phone | [...] | | | | [address] | [address] [facility] | | | | | [place], [place] | [place] [address] | | | | | [address] | [phone] | | | | | [phone] | | | +--------+ + + + [...] 12/18/17 1321 by | | lyssa | schc-vul-abcleo catheter system; | Jaye Bird, | Lucy [...] EVALUATION Belinda Meehan 57 y.o. female 1960 [id number] Procedure(s) EGD (N/A Mouth) COLONOSCOPY (N/A Rectum) [...] EVALUATION Belinda Meehan 57 y.o. female 1960 [id number] Procedure(s): EGD (N/A Mouth) COLONOSCOPY (N/A Rectum) [...] [address] | | | | | | [facility] [address] | | | | | | [place] [address] | | | | | | [phone] | | | | | | | [...]
--- OUTSIDE RECORDS SUMMARY | ~2020-01-25 | XMS | Encounter Summary ---
Demographics + + + | Address | [address] | | | [place] [address] | + + + | Home Phone [...] + +------+ + | Care Director Of Loss Prevention Name | Role | Phone [...] + | 03/03/ | Office | [facility] | Delfina Molina, | LBP (Low Back Pain); | | 2007 | Visit | Pain Center at | ANP | Spondylosis with | | | | [facility] | | Myelopathy, Lumbar | | | | [address] | | Region; Bilateral | | | | [facility] | | Leg Pain; | | | | and Healing, | | Radiculitis, | | | | Building | | Lumbosacral; | | | | Floor [place], [place] | | Encounter for | | | | [address] | | Long-Term (Current) | | | | [phone] | | Use of Opioids; Hx | [...] Meehan is a 48 y.o. female [facility] Pain Center Return Visit Chief Complaint: [...] be ing reviewed by Dr Constantino SHEEHAN sound art instructor. MRI of the brain and it was [...] PhD TPI every 5-6 months with [facility] Rheumatology Hilda Saenz Review of Systems: Bones, [...] fam bijan history, or social history. [facility] Encorinology PRASHANT DE LA O ACNP ThuNovember [...] to discuss with her options at [facility] with, hopefully, coordinatio n of services. RTC [...] 300 mg) by oral route once daily dfudvhiwnd-jmnygijkjbnbr-gbscccgr (FIORICET) 50-325-40 mg Oral Tablet take 2 [...] DISK BULGE. Transcribed By: Armaan Rivera : [id number] : 1442 Approved By: Radiologist: Physical Examination: [...] [facility] Mail code CH 4P [facility] and [address] [address] Kristin Ailyn L - 03/03/20 [...]
--- OUTSIDE RECORDS SUMMARY | ~2020-01-25 | XMS | Encounter Summary ---
Demographics + + + | Address | [address] | | | [place] [address] | + + + | Home Phone [...] Providers + +------+ + | Care Shell Maker Lockstitch Name | Role | Phone [...] Rd | | | | | | [place], [place] | | | | | | [address] | | | +--------+ + + + [...] as of this encounter Progress Notes Interface, Booth Cleaner In - 12/06/2006 2:32 AM PDT [id number] GEOVANNI Barnes [id number] Clinic Date: 10/29/2006 Clinic: Endocrinology Subjective: Belinda [...] been working with the Pain [facility] at [facility] to optimize her pain management. Fortunately, [...] patch 25 mcg for 72 hours. 2. [place]/acetaminophen 10 mg/325 mg, 1 every 6 hours [...] months. Beto Meeks M.D. PD / HS [id number] / [id number] / [id number] / [id number] cc: Pedrito Gutierrez M.D. [address] [address] Chris Padgett M.D. Electronically signed by Beto Meeks 12-05-2006 05:17:05 AM documented in this encounter Plan of Treatment Not on filedocumented as of this encounter Visit Diagnoses Not on filedocumented in this encounter"
--- OUTSIDE RECORDS SUMMARY | ~2020-01-25 | XMS | Encounter Summary ---
Demographics + + + | Address | [address] | | | [place] [address] | + + + | Home Phone [...] Providers + +------+ + | Care Gate Shear Operator Name | Role | Phone [...] + + | 02/02/ | Telephone | [facility] | Alanis, | Pain | | 2018 | | MEDICINE [address] | MD [place] | | | | | [place], | [address] [facility] | | | | | [place] [address] | [place] [address] | | | | | [phone] | [phone] | | | | | | | [...] / Ice for 20 min off/on elephone Encount Ayla Harmon - 02/02/2019 8:58 AM PDTPatient called in [...] | | | | | [place] [address] | | | | | | [phone] | | | | | | | | +--------+---------+ + + + documented as of this encounter Visit Diagnoses Not on filedocumented in this encounter"
--- OUTSIDE RECORDS SUMMARY | ~2020-01-25 | XMS | Encounter Summary ---
Demographics + + + | Address | [address] | | | [place] [address] | + + + | Home Phone [...] + +------+ + | Care Clinical Pharmacy Specialist Name | Role | Phone | [...] + + | 03/19/ | Telephone | [facility] | Alanis, | Other (bowel issues) | | 2017 | | MEDICINE [address] | MD [place] | | | | | [place], | [address] [facility] | | | | | [place] [address] | [place] [address] | | | | | [phone] | [phone] | | | | | | | [...] a llergic to dairy products. Please call [phone]. elephone Encounter - CantorAdriana - 03/19/2018 12:24 PM PDTPatient called wanting [...] r antibiotic and medications. Patient has no patient care provider with her today and her son is in [facility]. Patient would like a call back to [...] | | | | | [place] [address] | | | | | | [phone] | | | | | | | | +--------+---------+ + + + documented as of this encounter Visit Diagnoses Not on filedocumented in this encounter"
--- OUTSIDE RECORDS SUMMARY | ~2020-01-25 | XMS | Encounter Summary ---
Demographics + + + | Address | [address] | | | [place] [address] | + + + | Home Phone [...] Providers + +------+ + | Care Communications Equipment Supervisor Name | Role | Phone [...] Pavilion | | | | | | [place], [place] | | | | | | [address] | | | | | | [phone] | | | +--------+ + + + [...]
--- OUTSIDE RECORDS SUMMARY | ~2020-01-25 | XMS | Encounter Summary ---
Demographics + + + | Address | [address] | | | [place] [address] | + + + | Home Phone [...] Team Providers + +------+ + | Care Implementation Manager Name | Role | Phone | + +------+ + | Pedrito Gutierrez MD | PCP | | + +------+ + Encounter Details +--------+ + + + + | Date | Type | Department | Care Team | Description | +--------+ + + + + | 03/29/ | Sign Installer | Orthopaedics at | Donna Clancy | Neoplasm of | | 2008 | | [facility] [address] | [facility] | Uncertain Behavior | | | | [address] | Gastro [facility] | of Bone and | | | | Mailcode: [id number] | [address] | Articular Cartilage | | | | Physician's Sharmila | [address] [place], | (Primary Dx) | | | | [place], [place] | [place] [address] | | | | | [address] | [phone] | | | | | [phone] | | | +--------+ + + + [...]
--- OUTSIDE RECORDS SUMMARY | ~2020-01-25 | XMS | Encounter Summary ---
Demographics + + + | Address | [address] | | | [place] [address] | + + + | Home Phone [...] Team Providers + +------+ + | Care Seal Extrusion Operator Name | Role | Phone | [...] as of this encounter Progress Notes Interface, Patent Agent In - 01/12/2005 6:46 AM [facility] Date: 11/27/2003 Clinic: Surgery Clinic Subjective: This patient of Dr. Chris Padgett walks into clinic today to discuss her laparoscopic incisions and a lesion on her lower back. She was discharged from [facility] approximately 36 hours ago following a [...] discharge and would like to proceed to [place], where her home is. She agrees to [...] additional questions. Liliya Kirkpatrick. NELLY / SHARIF [id number] / [id number] / [id number] / [id number] Tdocumented in this encounter Plan of Treatment Not on filedocumented as of this encounter Visit Diagnoses Not on filedocumented in this encounter"
--- OUTSIDE RECORDS SUMMARY | ~2020-01-25 | XMS | Encounter Summary ---
Demographics + + + | Address | [address] | | | [place] [address] | + + + | Home Phone [...] Providers + +------+ + | Care Grants Administrator Name | Role | Phone | [...] 12/20/ | Office | [facility] | Alanis, | Medical certificate | | 2020 | Visit | MEDICINE [address] | MD Petrona | issuance (Primary | | | | [address] [place], | [address] [facility] | Dx); Other | | | | [place] [address] | [place] [address] | idiopathic | | | | [phone] | [phone] | scoliosis, lumbar | | | | [...] this encounter Progress Petrona Riojas MD - 12/21/2019 9:00 AM PDTFormatting of [...] migraine COPD (chronic obstructive pulmonary disease) ([facility]) Depression Diarrhea Dumping syndrome Fall at home Fatigue fracture of vertebra Fibromyalgia Full dentures GERD (gastroesophageal reflux disease) Glaucoma Hyperparathyroidism ([facility]) Hypothyroidism IBS (irritable bowel syndrome) Idiopathic scoliosis Leg edema Low back pain Lumbar postlaminectomy syndrome Lumbar radiculopathy primarily right 01/04/2015 Meniere syndrome Migraine with aura Migraines Muscle cramping Muscle spasm Myalgia Nausea Nonalcoholic hepatosteatosis Obesity Opioid dependence ([facility]) Orthostatic hypotension OLIVER (obstructive sleep apnea) Osteoarthritis, generalized Osteopenia Osteoporosis Palpitations Peripheral neuropathy Rheumatoid arthritis ([facility]) Right arm pain 01/04/2015 RLS (restless legs syndrome) S/P lumbar fusion 01/04/2015 Scoliosis Sleep apnea Spondylosis with myelopathy, lumbar region Stroke ([facility]) Syncope Tremor Type II or unspecified [...] mcg 1,000 mcg Intramuscular Q30 Days Cla udHellen Thapa MD 1,000 mcg at 11/15/19 0950 ALLERGIES Allergies Allergen Reactions Ensure Diarrhea Food Diarrhea Lactose Fozxhmaimq-Kzh-Ieff-Codeine Other (See Comments) Balance problems Codeine Sulfate Nausea Only Food Allergy Formula Diarrhea Ensure Levofloxacin Hives, Itching and Rash Butalbital Ropinirole Amitriptyline Hcl Other (See Comments) Confused and questionable for seizures Qusvhsojov-Igct-Duomvxji Rash duplicate Ifqwkqwfxo-Qogn-Qepvfrzp Hives and Rash Cephalexin Hives Ciprofloxacin Hives and Rash Clarithromycin Hives and Rash Clindamycin Hcl Hives and Rash Doxycycline Rash Duloxetine Other (See Comments) Migraines and nausea Ketorolac Hives Levofloxacin Hives and Rash Morphine Swelling Penicillins Hives and Rash Ropinirole Hcl Hives Sulfamethoxazole-Trimethoprim Hives and Rash Tramadol Hcl Nausea Only FOLLOW-UP No follow-ups on file. Notes: 1. Parts of this documentwere created using [employer] speech recognition software. As a resu lt, [...] | | | | | [place] [address] | | | | | | [phone] | | | | | | | | +--------+---------+ + + + documented as of this encounter Results Vitamin B-12 (12/21/2019 10:00 AM PDT) [...] LUDWIG. | [address] | [place], [place] | [phone] | | [facility] | | [address] | | | - LABORATORY | | [...]
--- OUTSIDE RECORDS SUMMARY | ~2020-01-25 | XMS | Encounter Summary ---
Demographics + + + | Address | [address] | | | [place] [address] | + + + | Home Phone [...] Providers + +------+ + | Care Liner Reroll Tender Name | Role | Phone | [...]
--- OUTSIDE RECORDS SUMMARY | ~2020-01-25 | XMS | Encounter Summary ---
Demographics + + + | Address | [address] | | | [place] [address] | + + + | Home Phone [...] Team Providers + +------+ + | Care K [employer] School Principal Name | Role | Phone | [...] + | 05/28/ | Telephone | [facility] | Alanis, | Pain Management | | 2016 | | MEDICINE [address] | MD Petrona | | | | | [place], | [address] [facility] | | | | | [place] [address] | [place] [address] | | | | | [phone] | [phone] | | | | | | | [...] Encounter - Jan, Maggie Leonardo LPN - 05/28/2017 3:58 PM PSTSpoke to patient she is w anting to be referred to a different pain clinic, does not like having to drive all the way to the [facility] and was told by her insurance that there was a clinic in the [facility]. I inf ormed her that she would need to call them to see if they would accept her insurance since s he was from [place] and prescribe medications. She has a follow up appt with on 06/01/17 to discuss. elephone En Maylin Rain - 05/28/2017 11:04 AM PSTContact/Caller: Belinad Contact Number: [phone] Provider/Nurse: Emmy Reason for Call: Patient is [...] | | | | | [place] [address] | | | | | | [phone] | | | | | | | | +--------+---------+ + + + documented as of this encounter Visit Diagnoses Not on filedocumented in this encounter"
--- OUTSIDE RECORDS SUMMARY | ~2020-01-25 | XMS | Encounter Summary ---
Demographics + + + | Address | [address] | | | [place] [address] | + + + | Home Phone [...] Providers + +------+ + | Care Wood Window And Door Craftsman Name | Role | Phone | [...] [address] | | | | | | [place], [place] | | | | | | [address] | | | | | | [phone] | | | +--------+ + + + [...] [facility] DEPARTMENT OF | [address] | [place] [address] | | | PATHOLOGY | [address] | | | + + + + + | [facility] DEPARTMENT | [address] | [place] [address] | | | PATHOLOGY | [address] | | | + + + + + PROTHROMBIN TIME (03/10/2006 2:42 PM PDT) + + + + + + | Component | Value | Ref Range | Performed | Pathologist | | | | | At | Signature | + + + + + + | INR | 1.01Comment: | 0.90 - 1.20 INR | [facility] | | | [...] + + | [facility] | [address] [place] [address] | [place] [address] | | | PATHOLOGY | [address] | | | + + + + + | [facility] | [address] [facility] | [place] [address] | | | PATHOLOGY | [address] [...] DEPARTMENT OF | [address] | [place] [address] | | | PATHOLOGY | [address] | | | + + + + + | [facility] DEPARTMENT OF | [address] | [place] [address] | | | PATHOLOGY | [address] [...] + | [facility] DEPARTMENT | [address] [facility] | [place] [address] | | | PATHOLOGY | [address] | | | + + + + + | [facility] | [address] [facility] | [place] [address] | | | PATHOLOGY | [address] [...] + + + | [facility] | [address] | [place] [address] | | | LABORATORY | | | [...] | | | | | performed at [place] | | | | | | Permanente [...] + + + | [facility] | [address] | [place] [address] | | | LABORATORY | | | | + + + + + documented in this encounter Visit Diagnoses + + | Diagnosis | + + | Chronic abdominal pain Abdominal pain, unspecified site | + + | Iron deficiency Other disorders of iron metabolism | + + documented in this encounter"
--- OUTSIDE RECORDS SUMMARY | ~2020-01-25 | XMS | Encounter Summary ---
Demographics + + + | Address | [address] | | | [place] [address] | + + + | Home Phone [...] Pavilion | | | | | | [place], [place] | | | | | | [address] | | | | | | [phone] | | | +--------+ + + + [...]
--- OUTSIDE RECORDS SUMMARY | ~2020-01-25 | XMS | Encounter Summary ---
Demographics + + + | Address | [address] | | | [place] [address] | + + + | Home Phone [...] Team Providers + +------+ + | Care Repairer Helper Name | Role | Phone [...] [address] | | | | | | [place], [place] | | | | | | [address] | | | +--------+ + + + [...]
--- OUTSIDE RECORDS SUMMARY | ~2020-01-25 | XMS | Encounter Summary ---
Demographics + + + | Address | [address] | | | [place] [address] | + + + | Home Phone [...] Providers + +------+ + | Care Director Digital Advertising Name | Role | Phone | [...] as of this encounter Progress Notes Interface, Creative Technologist In - 01/12/2005 6:46 AM [facility] Date: 11/27/2003 Clinic: Surgery Clinic Subjective: This patient of Dr. Chris Padgett walks into clinic today to discuss her laparoscopic incisions and a lesion on her lower back. She was discharged from [facility] approximately 36 hours ago following a [...] discharge and would like to proceed to [place], where her home is. She agrees to [...] additional questions. Liliya Kirkpatrick. NELLY / SHARIF [id number] / [id number] / [id number] / [id number] Tdocumented in this encounter Plan of Treatment Not on filedocumented as of this encounter Visit Diagnoses Not on filedocumented in this encounter"
--- OUTSIDE RECORDS SUMMARY | ~2020-01-25 | XMS | Encounter Summary ---
Demographics + + + | Address | [address] | | | [place] [address] | + + + | Home Phone [...] | [facility] | | | and [...] + +------+ + | Care Business Support Administrator Name | Role | Phone | [...] + + | 01/04/ | Telephone | [facility] | Alanis, | Skin Irritation | | 2017 | | MEDICINE [address] | MD Petrona | | | | | [place], | [address] [facility] | | | | | [place] [address] | [place] [address] | | | | | [phone] | [phone] | | | | | | | [...] silvadene for a burn? elephone Encounter - ElenaJuliane - 01/04/2018 5:03 PM PDTPatient called stating [...] Petrona | | | | | | [facility] [address] | | | | | | [place] [address] | | | | | | [phone] | | | | | | | | +--------+---------+ + + + documented as of this encounter Visit Diagnoses + + | Diagnosis | + + | Tinea cruris - Primary Dermatophytosis of groin and perianal area | + + documented in this encounter"
--- OUTSIDE RECORDS SUMMARY | ~2020-01-25 | XMS | Encounter Summary ---
Demographics + + + | Address | [address] | | | [place] [address] | + + + | Home Phone [...] Providers + +------+ + | Care Machine Paint Mixer Name | Role | Phone | [...] + + | 04/25/ | Telephone | [facility] | Alanis, | Paperwork; Pre-Op | | 2018 | | MEDICINE [facility] [address] | MD Petrona | | | | | [place], | [place] | | | | | [place] [address] | [place] [address] | | | | | [phone] | [phone] | | | | | | | [...] Rasmussen - 04/25/2019 9:16 AM PSTTanya with [facility] norm colin stating that they [...] | | | | | | [address] [place] [address] [place] | | | | | | [place] [address] | | | | | | [phone] | | | | | | | | +--------+---------+ + + + documented as of this encounter Visit Diagnoses Not on filedocumented in this encounter"
--- OUTSIDE RECORDS SUMMARY | ~2020-01-25 | XMS | Encounter Summary ---
Demographics + + + | Address | [address] | | | [place] [address] | + + + | Home Phone [...] Providers + +------+ + | Care Practice Business Asst Name | Role | Phone | [...] | Discussion | | 2007 | | [facility] & | | | | | | Cheyanne Garcia[address] | | | | | | [facility] | | | | | | Health and Healing, | | | | | | Building [address], | | | | | | Floor [place], [place] | | | | | | [address] | | | | | | [phone] | | | +--------+ + + + [...]
--- OUTSIDE RECORDS SUMMARY | ~2020-01-25 | XMS | Encounter Summary ---
Demographics + + + | Address | [address] | | | [place] [address] | + + + | Home Phone [...] Providers + +------+ + | Care Environmental Health Technician Name | Role | Phone | [...] Naeem Clementina | | | | | [facility] | [place], [place] | | | | | and Healing, | [address] | | | | | [place] [address], [facility] | [phone] | | | | | Floor [place], [place] | | | | | | [address] | | | | | | [phone] | | | +--------+ + + + [...]
--- OUTSIDE RECORDS SUMMARY | ~2020-01-25 | XMS | Encounter Summary ---
Demographics + + + | Address | [address] | | | [place] [address] | + + + | Home Phone [...] Providers + +------+ + | Care Deckhand Crab Boat Name | Role | Phone | + [...] as of this encounter Progress Notes Interface, Fast Food Team Member In - 07/03/2006 2:33 AM PST [id number] GEOVANNI SKELTON J [id number] Clinic Date: 06/24/2006 Clinic: Rheumatology Subjective: Belinda Meehan is a 46-year-old woman here for followup of fibromyalgia. She comes from [place] and is now also working with the [...] will have a meeting soon with [facility] to start doing my films here, [...] 2 months. Caitlin Rivera M.S., F.N.P. / [id number] / [id number] / [id number] / [id number] cc: [facility] Electronically signed by Caitlin Rivera 07-02-2006 11:27:56 AM documented in this encounter Plan of Treatment Not on filedocumented as of this encounter Visit Diagnoses Not on filedocumented in this encounter"
--- OUTSIDE RECORDS SUMMARY | ~2020-01-25 | XMS | Encounter Summary ---
Demographics + + + | Address | [address] | | | [place] [address] | + + + | Home Phone [...] Providers + +------+ + | Care Market Intelligence Consultant Name | Role | Phone | [...] + + | 09/16/ | Telephone | [facility] | Miranda [place], | Memory loss [...] | | | | | | Floor [place], [place] | | | | | | [address] | | | | | | [phone] | | | +--------+ + + + [...]
--- OUTSIDE RECORDS SUMMARY | ~2020-01-25 | XMS | Encounter Summary ---
Demographics + + + | Address | [address] | | | [place] [address] | + + + | Home Phone [...] Team Providers + +------+ + | Care Medart Operator Name | Role | Phone | [...] Pavilion | | | | | | [place], [place] | | | | | | [address] | | | | | | [phone] | | | +--------+---------+ + + + [...] place on the hill at the [facility]: Surgeries scheduled in the [facility] ( North): registration is located on the 4th floor of [facility] (Day Surgery). Surgeries scheduled in the [facility]: registration is located on the 9th floor. Surgeries scheduled in [facility]: registration is located on the 6th floor. Surgeries scheduled in the [facility]: registration is located i n the [facility] on the first floor. For surgeries scheduled to take place at the [facility]: registration is l [...] If you use specialized medical equipment at [facility], please check with your provider before [...]
--- OUTSIDE RECORDS SUMMARY | ~2020-01-25 | XMS | Encounter Summary ---
Demographics + + + | Address | [address] | | | [place] [address] | + + + | Home Phone [...] Providers + +------+ + | Care Pull Out Operator Name | Role | Phone | + +------+ + | Petrona Thapa | PCP | | | MD | | | + +------+ + Reason for Visit + +--------+ + | Reason | Onset | Comments | | | Date | | + +--------+ + | Medication Refill | 11/29/ | | | | 2019 | | + +--------+ + Encounter Details +--------+--------+ + + + | Date | Type | Department | Care Team | Description | +--------+--------+ + + + | 11/29/ | Refill | [facility] | Alanis, | Medication Refill | | 2019 | | MEDICINE [address] | MD Petrona | | | | | [place], | [address] | | | | | [place] [address] | [place] [address] | | | | | [phone] | [phone] | | | | | | | [...] 11/30/2019 4:57 PM PDTAdvised patient to seek m edical attention at the in [place] as is out of the office this afternoon. [facility] ds and accepts elephone Encounter - Long Owen - 11/30/2019 4:20 PM PDTMedication: zofran Strength: 4mgs Directions: 4 per day Quantity Remainin Pharmacy: [facility] Call/Mail/Nuclear Medicine Pet Ct Technologist/Fax: call Date of Last Refill: unknown Date [...] | | | | | [place] [address] | | | | | | [phone] | | | | | | | | +--------+---------+ + + + documented as of this encounter Visit Diagnoses + + | Diagnosis | + + | Nausea Nausea alone | + + documented in this encounter"
--- OUTSIDE RECORDS SUMMARY | ~2020-01-25 | XMS | Encounter Summary ---
Demographics + + + | Address | [address] | | | [place] [address] | + + + | Home Phone [...] + +------+ + | Care Clinical Pharmacy Coordinator Name | Role | Phone | [...] of this encounter Progress Notes Interface, Customer Solutions Coordinator In - 01/12/2006 1:16 AM PDTCLINIC DATE: 05/24/2002 NEUROMUSCULAR CLINIC [facility] CARE PROVIDER: Pedrito Gutierrez M.D., [place], [place]. REFERRING PROVIDER : Issac Meeks M.D., [facility] Endocrinology. REASON FOR CONSULTATION: Dr. Meeks [...] has some mild associated weakness in her grain inspector. She was told she had carpal tunnel [...] use drugs. 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 She is applying for disability compensation. She lives in [place] and is currently undergoing a divorce. [...] position sense throughout. Coordination: Fine finger movements, tgczmw-hl-xfsh, rapid alternating movements, and bvro-ql-kovc maneuvers are intact though fiuidp-jn-whhv is limited by poor depth perception due [...] Pete M.D. Neurology/Neuromuscular Fellow TBBuzz / HS [id number] / [id number] / [id number] / cc: Issac Meeks M.D. [facility] Endocrinology Pedrito Gutierrez M.D. [address] [place] [address]Neenxrhgrcvmja signed by Interface, Customer Solutions Coordinator In at 01/12/2006 1:1 6 AM PDTdocumented in this encounter Plan of Treatment Not on filedocumented as of this encounter Visit Diagnoses Not on filedocumented in this encounter
--- OUTSIDE RECORDS SUMMARY | ~2020-01-25 | XMS | Encounter Summary ---
Demographics + + + | Address | [address] | | | [place] [address] | + + + | Home Phone [...] Team Providers + +------+ + | Care Stove Bottom Worker Name | Role | Phone | [...] | | | [facility] | [place], [place] | | | | | Pavilion [address] | [address] | | | | | [address] | [phone] | | | | | Physician's | | | | | | Pavilion, 1st floor | | | | | | [place], [place] | | | | | | [address] | | | | | | [phone] | | | +--------+--------+ + + + [...]
--- OUTSIDE RECORDS SUMMARY | ~2020-01-25 | XMS | Encounter Summary ---
Demographics + + + | Address | [address] | | | [place] [address] | + + + | Home Phone [...] Team Providers + +------+ + | Care Pbx Installer Name | Role | Phone | [...] [address] | | | | | | [place], [place] | | | | | | [address] | | | | | | [phone] | | | +--------+--------+ + + + [...]
--- OUTSIDE RECORDS SUMMARY | ~2020-01-25 | XMS | Encounter Summary ---
Demographics + + + | Address | [address] | | | [place] [address] | + + + | Home Phone [...] + +------+ + | Care Commercial Loan Assistant Name | Role | Phone | + +------+ + PCP | Unavailable | + +------+ + Encounter Details +--------+ + + + + | Date | Type | Department | Care Team | Description | +--------+ + + + + | 08/09/ | Results | | Other, Faculty | | | 2002 | Only | | [phone] | | +--------+ + + + + [...] [facility] DEPARTMENT OF | [facility] | [place] [address] | | | PATHOLOGY | [address] | | | + + + + + | [facility] DEPARTMENT OF | [facility] | [place] [address] | | | PATHOLOGY | [address] | | | + + + + + documented in this encounter Visit Diagnoses Not on filedocumented in this encounter"
--- OUTSIDE RECORDS SUMMARY | ~2020-01-25 | XMS | Encounter Summary ---
Demographics + + + | Address | [address] | | | [place] [address] | + + + | Home Phone [...] Providers + +------+ + | Care Manager Manufacturing Name | Role | Phone | + [...] | | | | [facility] | | | | | | [address] | | | | | | Center for Health | | | | | | and Healing, | | | | | | Building ,[address] | | | | | | Floor [place], [place] | | | | | | [address] | | | | | | [phone] | | | +--------+ + + + [...]
--- OUTSIDE RECORDS SUMMARY | ~2020-01-25 | XMS | Encounter Summary ---
Demographics + + + | Address | [address] | | | [place] [address] | + + + | Home Phone [...] Providers + +------+ + | Care Tax Professional Name | Role | Phone | [...] | 2006 | Visit | [facility] | MD Darrion,PhD [address] | Deconditioning; | | | | for Health and | [address] | Physical | | | | Healing [address] | [place], [place] | Deconditioning | | | | [facility] | [address] | | | | | Health and Healing, | [phone] | | | | | | | | | | | Floor [place], [place] | | | | | | [address] | | | | | | [phone] | | | +--------+---------+ + + + [...] and neurology assessment. Angel Morales M.D., Ph.D. Factory Maintenance Manager, Surgical Vehicle Technician Orthopedics & Cartilage Reconstruction Surgery Department of Orthopedics [email or web address] documented in this encou nter Plan [...]
--- OUTSIDE RECORDS SUMMARY | ~2020-01-25 | XMS | Encounter Summary ---
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, Lumbar | | | | [facility] | | Region; Herniated | | | | [address] | | Lumbar | | | | [facility] | | Intervertebral Disc | | | | and Healing, | | L4-5; Left Knee | | | | Building | | Pain; Opioid | | | | Floor [place], [place] | | [place], | | | | [address] | | Continuous ([facility]); | | | | [phone] | | Migraine Headache; | | | | | | Fibromyalgia | | | | | | syndrome 729.1; | | | | | | Major Depressive | | | | | | Disorder, Recurrent | | | | | | Episode, Moderate | | | | | | ([facility]); Adjustment | | | | [...] and Independent Home Exercise Program DELFINA MOLINA [facility] Comprehensive Pain Center Mail code CH [address] [place] [facility] and [address] [address] Ailyn Foster - 01/05/20 07 [...] medication refills today? yes [facility] Plan of Treatment Not on filedocumented [...]
--- OUTSIDE RECORDS SUMMARY | ~2020-01-25 | XMS | Encounter Summary ---
Demographics + + + | Address | [address] | | | [place] [address] | + + + | Home Phone [...] Rd | | | | | | [place], [place] | | | | | | [address] | | | +--------+ + + + [...]
--- OUTSIDE RECORDS SUMMARY | ~2020-01-25 | XMS | Encounter Summary ---
[...] Providers + +------+ + | Care Corrections Specialist Name | Role | Phone | + +------+ + | Pedrito Gutierrez MD | PCP | | + +------+ + Encounter Details +--------+ + + + + | Date | Type | Department | Care Team | Description | +--------+ + + + + | 03/29/ | Control Room Supervisor | Orthopaedics at | Donna Clancy | Neoplasm of | | 2008 | | [facility] [address] | [facility] | Uncertain Behavior | | | | [address] | Gastro [facility] | of Bone and | | | | Mailcode: PV430 | [address] | Articular Cartilage | | | | Physician's Sharmila | [address] [place], | (Primary Dx) | | | | [place], [place] | [place] [address] | | | | | [address] | [phone] | | | | | [phone] | | | +--------+ + + + [...]
--- OUTSIDE RECORDS SUMMARY | ~2020-01-25 | XMS | Encounter Summary ---
Demographics + + + | Address | [address] | | | [place] [address] | + + + | Home Phone [...] Providers + +------+ + | Care Spool Cleaner Name | Role | Phone | [...] + + | 08/28/ | Office | [facility] Comprehensive | Delfina Lambert, | Neck Pain; Radicular | | 2008 | Visit | Pain Center at | ANP | Pain in Left Arm; | | | | [facility] | | Fibromyalgia; | | | | [address] | | Chronic Bilateral | | | | Center for [facility] | | Shoulder Pain; | | | | and Healing, | | Coccydynia; LBP (Low | | | | | | Back Pain); | | | | Floor [place], [place] | | Adjustment Disorder | | | | [address] | | with Anxiety; Major | | | | [phone] | | Depressive Disorder, | | | [...] Belinda Meehan is a [address] [facility] Return Visit Chief Complaint: [...] drawing has be completed, which I reviewed. [facility] Brief Pain Inventory: (ten= worst [...] 4-6 per day, out for over one kemi Jimenes 2. Physical Rehabilitation: PT starting next week 3. Mental Health care: psychology PRN for depression and pain coping skills reinforcment an d social support, services she does not have [...] 278 01/18 Paniculectomy Hx lumbar fusion 05/2008 [id number] with bone spur removals Family History Problem [...] routine wit h her life and activites, flower buncher or picker some special interest or hobby and [...] MRI results reviewd with patient [facility] Mail code CH 4P [facility] and [address] [address] Ty Omalley - 08/13 3:00 [...] 12 tablets per day. [facility] Plan of Treatment Not on filedocumented [...]
--- OUTSIDE RECORDS SUMMARY | ~2020-01-25 | XMS | Encounter Summary ---
Demographics + + + | Address | [address] | | | [place] [address] | + + + | Home Phone [...] Providers + +------+ + | Care Oracle Ebs Consultant Name | Role | Phone | [...] Rd | | | | | | [place], [place] | | | | | | [address] | | | +--------+ + + + [...]
--- OUTSIDE RECORDS SUMMARY | ~2020-01-25 | XMS | Encounter Summary ---
Demographics + + + | Address | [address] | | | [place] [address] | + + + | Home Phone [...] Providers + +------+ + | Care Salesperson Shoes Name | Role | Phone | + +------+ + | Pedrito Gutierrez MD | PCP | | + +------+ + Encounter Details +--------+ + + + + | Date | Type | Department | Care Team | Description | +--------+ + + + + | 03/26/ | Telephone | [facility] Division of | Carlos Arreola, | | | 2005 | | Gastroenterology/Hep | [address] | | | | | atology [address] | [address] | | | | | [address] | [place] [address] | | | | | Mailcode: PV310 | [phone] | | | | | Physician's Sharmila | | | | | | [address] | | | | | | [place], [place] | | | | | | [address] | | | | | | [phone] | | | +--------+ + + + [...]
--- OUTSIDE RECORDS SUMMARY | ~2020-01-25 | XMS | Encounter Summary ---
Demographics + + + | Address | [address] | | | [place] [address] [...] Team Providers + +------+ + | Care Psychiatrist Name | Role | Phone | [...] Refill Request | | 2007 | | [place] [address] | [address] [facility] | | | | | Bethanie Mailcode: CH4S | [facility] | | | | | [facility] | [place], [place] | | | | | and [place], | [address] | | | | | [facility] | [phone] | | | | | Floor [place], [place] | | | | | | [address] | | | | | | [phone] | | | +--------+--------+ + + + [...]
--- OUTSIDE RECORDS SUMMARY | ~2020-01-25 | XMS | Encounter Summary ---
Demographics + + + | Address | [address] | | | [place] [address] | + + + | Home Phone [...] + + | 07/24/ | Office | [facility] Comprehensive | Delfina Lambert, | Chronic Bilateral | | 2008 | Visit | Pain Center at | ANP | Shoulder Pain | | | | [facility] | | (Primary Dx); Spinal | | | | [address] | | Fusion Lumbar spine | | | | [facility] | | ; LBP (Low Back | | | | and Healing, | | Pain); Osteopenia; | | | | Building | | Fibromyalgia | | | | Floor [place], [place] | | syndrome 729.1; | | | | [address] | | Major Depressive | | | | [phone] | | Disorder, Recurrent | | | | | | Episode, Moderate | | | | | | ([facility]); Adjustment | | | | | | [...] is a 48 y.o. female [facility] Comprehensive Pain Center Return Visit [...] drawing has be completed, which I reviewed. CLAIMS COORDINATOR Brief Pain Inventory: (ten= worst possible pain [...] 300 mg) by oral route once daily qfebffmsdr-drteycaovmvtx-hpjobzmd (FIORICET) 50-325-40 mg Oral Tablet take 2 [...] 278 01/18 Paniculectomy Hx lumbar fusion 05/2008 [id number] with bone spur removals Family History Problem [...] COMPREHENSIVE PAIN CENTER Mail code CH 4P [facility] [address] [place] [address] Ailyn Bello - 02/2009 3:13 PM [...] | | + +---------+ + + | [facility] DEPARTMENT OF | | | | | [...]
--- OUTSIDE RECORDS SUMMARY | ~2020-01-25 | XMS | Encounter Summary ---
Demographics + + + | Address | [address] | | | [place] [address] | + + + | Home Phone [...] + +------+ + | Care Customer Service Professional Name | Role | Phone | [...] [address] | | | | | [place], [place] | [place], [place] | | | | | [address] | [address] | | | | | [phone] | [phone] | | | | | | | [...]
--- OUTSIDE RECORDS SUMMARY | ~2020-01-25 | XMS | Encounter Summary ---
Demographics + + + | Address | [address] | | | [place] [address] | + + + | Home Phone [...] Providers + +------+ + | Care Returned Goods Repairer Name | Role | Phone | [...] [address] [place] | | | | | [place] [address] | [place] [address] | | | | | [phone] | [phone] | | | | | | | [...] | | | | | [place] [address] | | | | | | [phone] | | | | | | | [...]
--- OUTSIDE RECORDS SUMMARY | ~2020-01-25 | XMS | Encounter Summary ---
Demographics + + + | Address | [address] | | | [place] [address] | + + + | Home Phone [...] Team Providers + +------+ + | Care Bradley Linebacker Crewmember Name | Role | Phone | [...] 2005 | Activity | TRACE Wilson MD [address] | | | | | [place] Mailcode: RPB07 | [place], [place] | | | | | [place], [place] | [address] | | | | | [address] | [phone] | | | | | [phone] | | | +--------+ + + + [...] M.D./PathologistT:04/06/ | | | | | | 06:[facility] I have reviewed | | | [...] + | [facility] | [address] | [place] [address] | | | PATHOLOGY | [address] | | | + + + + + | [facility] DEPARTMENT OF | [facility] | [place] [address] | | | PATHOLOGY | [address] | | | + + + + + documented in this encounter Visit Diagnoses Not on filedocumented in this encounter"
--- OUTSIDE RECORDS SUMMARY | ~2020-01-25 | XMS | Encounter Summary ---
Demographics + + + | Address | [address] | | | [place] [address] | + + + | Home Phone [...] Providers + +------+ + | Care Reed Fixer Name | Role | Phone | [...] [facility] | Alanis, | Safety issue | | 2019 | | MEDICINE [address] | MD [place] | | | | | [place], | [address] [facility] | | | | | [place] [address] | [place] [address] | | | | | [phone] | [phone] | | | | | | | [...] gone". Patient requested a call in "a [facility]" for a wellness check. Belinda has a case management rn, Tania, through [facility]. Her housing is stable but she "wants to move where no one can live above her". Her hope is to have a house with a sitflb-hh-mcq cottage . This SW offered to coordinate with her case management rn and assist with housing but she declin ed at this time. Belinda receives food stamps and has enough food. Belinda has a state caregiver to help with cleaning and transportation to appointments. Belinda no longer drives. Belinda declined coun [employer]. el ephone Encounter - Shalonda Mcdermott [...] help with? elephone Encounter - Teresa Mitchell, Top Flavor Attendant - 06/09/2019 5:04 PM PSTPhone call from [...] office until 06/13/19. Is there anything that [facility] n help with? 5: 17 PM PSTdocumented [...] | | | | | [place] [address] | | | | | | [phone] | | | | | | | | +--------+---------+ + + + documented as of this encounter Visit Diagnoses Not on filedocumented in this encounter
--- OUTSIDE RECORDS SUMMARY | ~2020-01-25 | XMS | Encounter Summary ---
Demographics + + + | Address | [address] | | | [place] [address] | + + + | Home Phone [...] Providers + +------+ + | Care Needle Loom Operator Name | Role | Phone | [...] as of this encounter Progress Notes Interface, Interventional Technologist In - 08/30/2005 2:07 AM PST [id number] [facility] Date: 08/11/2005 Clinic: Colorectal [...] Rebekah Navas M.D. Chris Padgett M.D. / [id number] / [id number] / [id number] / [id number] E: 08/14/2005 [email or web address] cc: Dr. Sarah De Jesus, [place] Electronically signed by Chris Padgett 08-29-2005 03:28:30 PM documented i n this encounter Plan of Treatment Not on filedocumented as of this encounter Visit Diagnoses Not on filedocumented in this encounter"
--- OUTSIDE RECORDS SUMMARY | ~2020-01-25 | XMS | Encounter Summary ---
Demographics + + + | Address | [address] | | | [place] [address] | + + + | Home Phone [...] Providers + +------+ + | Care Residential Caregiver Name | Role | Phone | [...] 2005 | | Bariatric [address] | [address] | Pain (Primary Dx) | | | | [address] | [address] | | | | | Mailcode: L223A | [place], [place] | | | | | Physician's Sharmila | [address] | | | | | [address] [place], [place] | [phone] | | | | | [address] | | | | | | [phone] | | | +--------+ + + + [...] [facility] | [address] | [place], [place] | | | [address] [facility] | | [address] | | + + + + + documented in this encounter Visit Diagnoses + + | Diagnosis | + + | Chronic abdominal pain - Primary Abdominal pain, unspecified site | + + documented in this encounter"
--- OUTSIDE RECORDS SUMMARY | ~2020-01-25 | XMS | Encounter Summary ---
Demographics + + + | Address | [address] | | | [place] [address] | + + + | Home Phone [...] Providers + +------+ + | Care Campus Coordinator Name | Role | Phone | [...] + | 06/13/ | Refill | [facility] | Alanis, | Medication Refill; | | 2018 | | MEDICINE [address] | MD [place] | Medication Refill | | | | [place], | [address] [place] | | | | | [place] [address] | [place] [address] | | | | | [phone] | [phone] | | | | | | | [...] office and will have to go to [facility] 1st pressman on web press doctor. Patient would like to have the nurse call her back regarding this. Please advise elephone Susanna Salinas - 06/13/2019 12:23 PM PSTPatient states home medical is supposed to f ax over prescription for pads and gloves. States she would like a call back once that's done . Please advise. elephone Shlomo - Ayla Quezada - 06/13/2019 7:46 AM PSTMedication: Lopiramide Strength: 2 mg Directions: 4 tabs in the morning 2 evening Quantity Remainin Pharmacy: [facility] Call/Mail/Coverstitch Elastic Attacher/Fax: Fax Date of Last Refill: 05/14/2019 Date [...] | | | | | [place] [address] | | | | | | [phone] | | | | | | | | +--------+---------+ + + + documented as of this encounter Visit Diagnoses Not on filedocumented in this encounter"
--- OUTSIDE RECORDS SUMMARY | ~2020-01-25 | XMS | Encounter Summary ---
Demographics + + + | Address | [address] | | | [place] [address] | + + + | Home Phone [...] Providers + +------+ + | Care Section Laborer Name | Role | Phone | [...] as of this encounter Progress Notes Byron, Residential Building Inspector In - 01/12/2005 6:46 AM PDTClinic Date: [...] months. Chris Padgett M.D. CD / HS [id number] / [id number] / [id number] / Tdocumented in this encounter Plan of Treatment Not on filedocumented as of this encounter Visit Diagnoses Not on filedocumented in this encounter"
--- OUTSIDE RECORDS SUMMARY | ~2020-01-25 | XMS | Encounter Summary ---
[...] Providers + +------+ + | Care Outsole Beveler Name | Role | Phone | [...] | | | [facility] | [place], [place] | | | | | [address] | [address] | | | | | [address] | [phone] | | | | | Physician's | | | | | | Pavilion, 1st floor | | | | | | [place], [place] | | | | | | [address] | | | | | | [phone] | | | +--------+--------+ + + + [...]
--- OUTSIDE RECORDS SUMMARY | ~2020-01-25 | XMS | Encounter Summary ---
Demographics + + + | Address | [address] | | | [place] [address] | + + + | Home Phone [...] Providers + +------+ + | Care Facilities Specialist Name | Role | Phone [...] as of this encounter Progress Notes Interface, Case Liner In - 01/13/2005 9:03 AM PDT [id number] [facility] Date: 01/02/2005 Clinic: Endocrinology [...] months. Beto Meeks M.D. PD / HS [id number] / [id number] / [id number] / [id number] cc: Chris Padgett M.D. documented i n this encounter Plan of Treatment Not on filedocumented as of this encounter Visit Diagnoses Not on filedocumented in this encounter"
--- OUTSIDE RECORDS SUMMARY | ~2020-01-25 | XMS | Encounter Summary ---
Demographics + + + | Address | [address] | | | [place] [address] | + + + | Home Phone [...] Providers + +------+ + | Care Bank And Savings Securities Trader Name | Role | Phone | [...] + | 06/12/ | Telephone | Kraig Truner | Beto Meeks MD | Letter From | | 2008 | | [facility] | [address] | Specialist | | | | [facility] | [place], [place] | | | | | [address] | [address] | | | | | [address] | [phone] | | | | | Physician's | | | | | | Pavilion, 1st floor | | | | | | [place], [place] | | | | | | [address] | | | | | | [phone] | | | +--------+ + + + [...]
--- OUTSIDE RECORDS SUMMARY | ~2020-01-25 | XMS | Encounter Summary ---
Demographics + + + | Address | [address] | | | [place] [address] | + + + | Home Phone [...] + +------+ + | Care Main Line Station Engineer Name | Role | Phone | [...] as of this encounter Progress Notes Interface, Hub Inventory Specialist In - 01/12/2005 6:20 AM PDT JenniferBelinda garner [id number] MED REC NUMBER: [id number] NAME : Belidna Meehan DATE : 1960 DISCHARGE ASSESSMENT AND CASE MANAGEMENT NOTES Chart Reviewed: 2004-12-04 15:29:00 Primary Teacher: Lou Jordan RN Preadmission living situation: family If facilty, name: Additional needs assessment: Case Management Initial Assessment and Ongoing Notes: 12/04/2004 15:29 Rec'd referral from IR printout. Pt presenti jen for panniculectomy per Dr. Chris Padgett 12/06/2004. ----- ------- Living Situation: Pt lives w/ her son, Sree in [place], [place]. Pt also has a caregiver from [employer] and [email or web address] come in for 8-9 hours per day when her son is not home. Transportation: Pat w/ [employer] will take pt home (H) (C). Home Health: Pt has an RN from [employer] [facility] [email or web address] [facility] visit once a month for an assesment (H) or (C). Medical Equipment: Pt states that she has forearm crutches, a shower chair, and is working on getting hand bars installed into her shower. ---- Co-Morbidities: Panniculitis, s/p gastric bypass, arthritis, asthma, NIDDM, GERD, HTN, and sleep apnea. ------ Providers: PCP is Dr. Pedrito Gutierrez in [facility] and Dr. William Meeks [facility] metabolic disorder clinic. Narrative: Pt asked if [...] or concerns, [place]. [place] [id number] documented i n this encounter Plan of Treatment Not on filedocumented as of this encounter Visit Diagnoses Not on filedocumented in this encounter"
--- OUTSIDE RECORDS SUMMARY | ~2020-01-25 | XMS | Encounter Summary ---
Demographics + + + | Address | [address] | | | [place] [address] [...] Providers + +------+ + | Care Vocational Auto Body Instructor Name | Role | Phone | [...] + + | 05/26/ | Telephone | [facility] | Alanis, | Medication Question | | 2018 | | MEDICINE [address] | MD [place] | | | | | [place], | [address] [place] | | | | | [place] [address] | [place] [address] | | | | | [phone] | | | | | | | [...] | | | | | [place] [address] | | | | | | [phone] | | | | | | | | +--------+---------+ + + + documented as of this encounter Visit Diagnoses Not on filedocumented in this encounter"
--- OUTSIDE RECORDS SUMMARY | ~2020-01-25 | XMS | Encounter Summary ---
[...] Providers + +------+ + | Care Chief Digital Media Officer Name | Role | Phone | [...]
--- OUTSIDE RECORDS SUMMARY | ~2020-01-25 | XMS | Encounter Summary ---
Demographics + + + | Address | [address] | | | [place] [address] | + + + | Home Phone [...] Providers + +------+ + | Care Drug Safety Assistant Name | Role | Phone | [...] | | | | pain | [address] | [facility] [address] | | | | | Procedures | [address] | [address] | | | | | CONSULT TO | [place], [place] | [place], [place] | | | | | GI PROCEDURE | [address] | [address] | | | | | UNIT: | Phone: | | | | | | COLONOSCOPY | [phone] | | | | | | | Fax: | | | | | | | [phone] | | + + + + + [...] | | | | Mailcode: L223A | [place], [place] | | | | | Phys[facility]ilion | [address] | | | | | [address] [place], [place] | [phone] | | | | | [address] | | | | | | [phone] | | | +--------+---------+ + + + [...] Ms. Meehan has been seen in the [facility] [place] [facility] emergency dept twice in the last [...] [facility] | [address] | [place], [place] | | | [address] [facility] | | [address] | | + + + + + documented in this encounter Visit Diagnoses + + | Diagnosis | + + | Chronic abdominal pain - Primary Abdominal pain, unspecified site | + + documented in this encounter
--- OUTSIDE RECORDS SUMMARY | ~2020-01-25 | XMS | Encounter Summary ---
Demographics + + + | Address | [address] | | | [place] [address] | + + + | Home Phone [...] + +------+ + | Care Front End Assistant Name | Role | Phone | [...] | | | | [address] Physician's | [place], [place] | | | | | [address] | [address] | | | | | [place], [place] | [phone] | | | | | [address] | | | | | | [phone] | | | +--------+ + + + [...]
--- OUTSIDE RECORDS SUMMARY | ~2020-01-25 | XMS | Encounter Summary ---
Demographics + + + | Address | [address] | | | [place] [address] | + + + | Home Phone [...] Providers + +------+ + | Care Occupational Health Nurse Manager Name | Role | Phone | [...] + + | 03/19/ | Telephone | [facility] Division of | Carlos Arreola, | Erroneous Encounter | | 2005 | | Gastroenterology/Hep | [address] | - Disregard (ERROR) | | | | atology [address] | [address] | | | | | [address] | [place] [address] | | | | | Mailcode: PV310 | [phone] | | | | | Phys[facility]ilion | | | | | | [address] | | | | | | [place], [place] | | | | | | [address] | | | | | | [phone] | | | +--------+ + + + [...]
--- OUTSIDE RECORDS SUMMARY | ~2020-01-25 | XMS | Encounter Summary ---
Demographics + + + | Address | [address] | | | [place] [address] | + + + | Home Phone [...] Team Providers + +------+ + | Care Flexible Machining System Machinist Name | Role | Phone | [...] | Procedures | [address] | [place] | | | | | CONSULT TO | [facility] | [address] | | | | | GI PROCEDURE | Rd | floor | | | | | UNIT: SM | [place], [place] | [place], [place] | | | | | [address]EL | [address] | [address] | | | | | [address]SULE | Phone: | Phone: | | | | | ENDOSCOPY | [phone] | [phone] | | | | | | | Fax: | | | | | | | [phone] | +--------+--------+ + + + + Consultation [...] | | | | | Procedures | [facility] | [place], [place] | | | | | CONSULT TO | Rd | [address] | | | | | PAIN CENTER | [place], [place] | | | | | | | [address] | | | | | | | Phone: | | | | | | | [phone] | | +--------+--------+ + + + + Encounter Details +--------+---------+ + + + | Date | Type | Department | Care Team | Description | +--------+---------+ + + + | 04/07/ | Office | [facility] Division of | Carlos Arreola, | Iron Deficiency; | | 2005 | Visit | Gastroenterology/Hep | [address] | Chronic Abdominal | | | | atology [address] | [facility] | Pain | | | | [address] | [place] [address] | | | | | Mailcode: PV310 | [phone] | | | | | [facility] | | | | | | [address] | | | | | | [place], [place] | | | | | | [address] | | | | | | [phone] | | | +--------+---------+ + + + [...] December reviewed and normal (past ed below). [facility] [place] [place] labs received and reviewed: neg O&P UPPER [...] HEPATIS NODES. Transcribed By: Armaan Rivera : [id number] : 1224 Approved By: CT ABDOMEN AND [...] HEPATIS NODES. Transcribed By: Armaan Mata : [id number] : 1224 Approved By: Carlos [place]enton - 3:59 PM PDTPt seen previously seen by wi for chronic pain and PK, returns to [...]
--- OUTSIDE RECORDS SUMMARY | ~2020-01-25 | XMS | Encounter Summary ---
Demographics + + + | Address | [address] | | | [place] [address] | + + + | Home Phone [...] | | | Mailcode: PV240 | [place] [address] | | | | | [facility] | [phone] | | | | | [place], [place] | | | | | | [address] | | | | | | [phone] | | | +--------+ + + + [...]
--- OUTSIDE RECORDS SUMMARY | ~2020-01-25 | XMS | Encounter Summary ---
[...] Providers + +------+ + | Care Finance Lead Name | Role | Phone | [...] of this encounter Progress Notes Interface, Senior Online Marketing Manager In - 01/12/2005 6:32 AM PDT Referred [...] she was going to go to the [employer] food store and try to find another [...] two months. Svetlana Maki R.D. SR/x35 P [id number] signed by Interface, Senior Online Marketing Manager In at 01/12/2005 6:32 AM [facility]ed in this encounter Plan of Treatment Not on filedocumented as of this encounter Visit Diagnoses Not on filedocumented in this encounter"
--- OUTSIDE RECORDS SUMMARY | ~2020-01-25 | XMS | Encounter Summary ---
Demographics + + + | Address | [address] | | | [place] [address] | + + + | Home Phone [...] Providers + +------+ + | Care Trim Mechanic Name | Role | Phone | [...] | | | | [address] Physician's | [place], [place] | | | | | [address] | [address] | | | | | [place], [place] | [phone] | | | | | [address] | | | | | | [phone] | | | +--------+ + + + [...]
--- OUTSIDE RECORDS SUMMARY | ~2020-01-25 | XMS | Encounter Summary ---
Demographics + + + | Address | [address] | | | [place] [address] | + + + | Home Phone [...] Providers + +------+ + | Care Refrigeration Mechanic Name | Role | Phone [...] [address] | | | | | [facility] | [place], [place] | | | | | [address] | [address] | | | | | [address] | [phone] | | | | | [facility] | | | | | | Physician's | | | | | | Pavilion [place], | | | | | | [place] [address] | | | | | | [phone] | | | +--------+--------+ + + + [...]
--- OUTSIDE RECORDS SUMMARY | ~2020-01-25 | XMS | Encounter Summary ---
Demographics + + + | Address | [address] | | | [place] [address] | + + + | Home Phone [...] Providers + +------+ + | Care Hand Endband Cutter Name | Role | Phone | + +------+ + | Pedrito Gutierrez MD | PCP | | + +------+ + Encounter Details +--------+ + + + + | Date | Type | Department | Care Team | Description | +--------+ + + + + | 04/17/ | Telephone | [facility] Division of | Carlos Arreola, | | | 2005 | | Gastroenterology/Hep | [address] | | | | | atology [address] | [address] | | | | | [address] | [place] [address] | | | | | Mailcode: PV310 | [phone] | | | | | Physician's Sharmila | | | | | | [address] | | | | | | [place], [place] | | | | | | [address] | | | | | | [phone] | | | +--------+ + + + [...]
--- OUTSIDE RECORDS SUMMARY | ~2020-01-25 | XMS | Encounter Summary ---
Demographics + + + | Address | [address] | | | [place] [address] | + + + | Home Phone [...] Providers + +------+ + | Care Hat Copyist Name | Role | Phone | + [...] | Epigastric | T, ANP | [address] | | | | | pain Status | [place], [place] | [address] | | | | | post | [address] | [place] | | | | | bariatric | | [place], 4th | | | | | surgery | | floor | | | | | Procedures | | [place], [place] | | | | | CONSULT TO | | [address] | | | | | GI PROCEDURE | | Phone: | | | | | UNIT: EGD | | [phone] | | | | | | | Fax: | | | | | | | [phone] | +--------+--------+ + + + + Reason [...] | | | | | | Rd [place], | | | | | | | [place] | | | | | | | [address] | | | | | | | Phone: | | | | | | | [phone] | | | | | | | Fax: | | | | | | | [phone] | +--------+--------+ + + + + Encounter Details +--------+---------+ + + + | Date | Type | Department | Care Team | Description | +--------+---------+ + + + | 08/28/ | Office | Dig[facility]ive [facility] | Chris Padgett, | Epigastric Pain | | 2008 | Visit | [place] [address] | [address] | (Primary Dx); Status | | | | Ave Mailcode: CH4S | [facility] [address] | Post Bariatric | | | | Center for [facility] | [place], [place] | Surgery | | | | and Healing, | [address] | | | | | | [phone] | | | | | [place], [place] | | | | | | [address] | | | | | | [phone] | | | +--------+---------+ + + + [...] + + +--------+ + + | CA UPPER GI | Procedures | Routin | [...] Performed At | + + + | [id number] Estimated GFR > 60 mL/min/1.73 sq m if non- | [facility] | | [place] [id number] Estimated GFR > 60 mL/min/1.73 sq m if | DEPARTMENT OF | | [place] GFR is estimated using the MDRD equation [...] + + + + + | [facility] | [address] | [place] [address] | | | PATHOLOGY | [address] | | | + + + + + | [facility] | [address] | [place] [address] | | | PATHOLOGY | [address] | | | + + + + + documented in this encounter Visit Diagnoses + + | Diagnosis | + + | Epigastric pain - Primary Abdominal pain, epigastric | + + | Status post bariatric surgery Bariatric surgery status | + + documented in this encounter"
--- OUTSIDE RECORDS SUMMARY | ~2020-01-25 | XMS | Encounter Summary ---
Demographics + + + | Address | [address] | | | [place] [address] | + + + | Home Phone [...]
--- OUTSIDE RECORDS SUMMARY | ~2020-01-25 | XMS | Encounter Summary ---
Demographics + + + | Address | [address] | | | [place] [address] | + + + | Home Phone [...] Providers + +------+ + | Care Rod Puller Name | Role | Phone | + +------+ + | Maria Esther Cintron MD | PCP | | + +------+ + Encounter Details +--------+ + + + + | Date | Type | Department | Care Team | Description | +--------+ + + + + | 04/19/ | Telephone | Digestive Health | Chris Padgett, | | | 2007 | | [place] [address] | [address] [facility] | | | | | Bethanie Mailcode: CH4S | [address] | | | | | Center for [facility] | [place], [place] | | | | | and Healing, | [address] | | | | | Building , 6th | [phone] | | | | | Floor [place], [place] | | | | | | [address] | | | | | | [phone] | | | +--------+ + + + [...]
--- OUTSIDE RECORDS SUMMARY | ~2020-01-25 | XMS | Encounter Summary ---
[...] + +------+ + | Care Associate Professor Computer Science Name | Role | Phone | + [...] | Management | Chronic | Taqueria Strong, BACK UP MACHINE OPERATOR | Rosi Armijo, ANP | | | | | neck pain | [address] | [address] | | | | | Low back | [place] | [address] | | | | | pain | [place] | [place], [place] | | | | | | [address] | [address] | | | | | | Phone: | | | | | | | [phone] | | | | | | | Fax: | | | | | | | [phone] | | +--------+--------+ + + + + Encounter Details +--------+---------+ + + + | Date | Type | Department | Care Team | Description | +--------+---------+ + + + | 08/09/ | Office | [facility] | Rosi Antonio, | Fibromyalgia | | 2013 | Visit | Pain Center at | ANP | syndrome 729.1 | | | | [facility] | | (Primary Dx); Major | | | | [address] | | depressive disorder, | | | | Center for [facility] | | recurrent episode, | | | | and Healing, | | moderate (HCC); | | | | Building | | Adjustment disorder | | | | Floor [place], [place] | | with anxiety; LBP | | | | [address] | | (low back pain); | | | | [phone] | | Osteopenia; Chronic | | | [...] al. Diabetes Care. 28(1):89-94, 2004; Anca M, ASSISTANT IMPORT MANAGER Drugs. [address] 1:25-30; discussion 45-6, [...] might be different fro m the original. [facility] Pain Center Return Visit 08/09/2013 Belinda [...] never going to her local hospital in [place] for any medical evaluations. Belinda is very [...] Overview Note: Surgery 05/15/08 Dr Ricky Garnett [place] JEY karlos to get operative reports Osteopenia [...] and a pain drawing which I reviewed. RURAL MAIL CONTRACTOR Brief Pain Inventory: (ten= worst possible pain [...] regions, she notes pain in her right mandaeism, bilateral shoul crista muscles, left elbow, entire [...] right knee Lumbar fusion 05/2008, ' & L5-S6besygc with bone spur removals Appendectomy Cholecystectomy section Hysterectomy Gastric bypass CYudy Denisey wt 278 01/18 Paniculectomy Elbow surgery Family [...] Hives Mainly in the legs Clindamycin Codeine Qckvnpy-Jylbsvcdic-Awx-Caff Balance problems Fioricet W/Codeine (Hywohlwfyp-Hdfwghnmuw-Urh-Cod) Keflex (Cephalexin) Morphine IM ( only in [facility]) made gut pain worse 08/27/06: Trial of oral MSIR caused leg swelling Penicillins Sulfa (Sulfonamide Antibiotics) Tramadol Ms. Meehan reports no side effects. The Review of Systems provided by Ms. Meehan and documented by the [facility] was reviewed. This data was entered [...] Lauren TRAMMELL. et al. Diabetes Care. 28(1):89-94, 2004; Anca M, ASSISTANT IMPORT MANAGER Drugs. [address] 1:25-30; discussion 45-6, [...] of which more than 50% was spent sojqf-mv-oemj in r eviewing pain questionnaire, medical record, consultation, discussion, addressing questions and counselling/education. [facility] MeganSarah Beth - 08/09 10:19 AM PSTCMKatie History: 1. Has your pain changed from [...] +---------+ + + | [facility] | | | | | RADIOLOGY [...]
--- OUTSIDE RECORDS SUMMARY | ~2020-01-25 | XMS | Encounter Summary ---
[...] Providers + +------+ + | Care Job Counselor Name | Role | Phone | [...] + + | 05/26/ | Telephone | [facility] | Alanis, | Diarrhea | | 2017 | | MEDICINE [address] | MD [place] | | | | | [place], | [address] [facility] | | | | | [place] [address] | [place] [address] | | | | | [phone] | [phone] | | | | | | | [...] | | | | | [place] [address] | | | | | | [phone] | | | | | | | | +--------+---------+ + + + documented as of this encounter Visit Diagnoses Not on filedocumented in this encounter"
--- OUTSIDE RECORDS SUMMARY | ~2020-01-25 | XMS | Encounter Summary ---
Demographics + + + | Address | [address] | | | [place] [address] | + + + | Home Phone [...] Providers + +------+ + | Care Nursing Resident Name | Role | Phone | [...] | | | | | Floor [place], [place] | | | | | | [address] | | | | | | [phone] | | | +--------+ + + + [...]
--- OUTSIDE RECORDS SUMMARY | ~2020-01-25 | XMS | Encounter Summary ---
Demographics + + + | Address | [address] | | | [place] [address] | + + + | Home Phone [...] Team Providers + +------+ + | Care Spinner Fixer Name | Role | Phone | [...] [address] | | | | | [place], [place] | [place], [place] | | | | | [address] | [address] | | | | | [phone] | [phone] | | | | | | | [...] OF | [address] | [place] [address] | | | PATHOLOGY | [address] | | | + + + + + | [facility] DEPARTMENT OF | [address] | [place] [address] | | | PATHOLOGY | [address] [...] + + | [facility] DEPARTMENT OF | [address] | [place] [address] | | | PATHOLOGY | [address] | | | + + + + + | [facility] DEPARTMENT OF | [address] | [place] [address] | | | PATHOLOGY | [address] [...] Performed At | + + + | [id number] Estimated GFR > 60 mL/min/1.73 sq m if non- | [facility] | | [id number] Estimated GFR > 60 mL/min/1.73 sq m [...] + | [facility] | [address] | [place] [address] | | | PATHOLOGY | [address] | | | + + + + + | [facility] | [address] | [place] [address] | | | PATHOLOGY | [address] | | | + + + + + documented in this encounter Visit Diagnoses Not on filedocumented in this encounter"
--- OUTSIDE RECORDS SUMMARY | ~2020-01-25 | XMS | Encounter Summary ---
Demographics + + + | Address | [address] | | | [place] [address] | + + + | Home Phone [...] Providers + +------+ + | Care Hardware Installation Coordinator Name | Role | Phone | [...] + | 11/15/ | Office | [facility] | Emmy-Tajti, | Arthralgia of both | | 2019 | Visit | MEDICINE [address] | MD [place] | hands (Primary Dx); | | | | [address] [place], | [address] [facility] | Acquired | | | | [place] [address] | [place] [address] | hypothyroidism; | | | | [phone] | [phone] | Migraine without | | | | [...] Procedure: COLONOSCOPY; Surgeon: Luther Brito MD; Location: [facility] MEDICAL PROCEDURE UNIT DILATION AND CURETTAGE OF UTERUS ELBOW SURGERY FINGER TRIGGER RELEASE 2003 FINGER TRIGGER RELEASE 2010 GASTRIC BYPASS SURGERY 2004 HYSTERECTOMY 05/14/1980 JOINT REPLACEMENT Bilateral 2007 2008 KNEE ARTHROSCOPY 2005 LAPAROSCOPY 01/27/2015 LAPAROTOMY 2008 ROTATOR CUFF REPAIR 2005 SPINE SURGERY TONSILLECTOMY 1964 UPPER GASTROINTESTINAL ENDOSCOPY N/A 12/18/2017 Procedure: EGD; Surgeon: Luther Brito MD; Location: [facility] MEDICAL PROCEDURE UNIT CURRENT MEDICATIONS Current [...] (See Comments) Confused and questionable for seizures Fypypouloy-Ndlu-Mkcigjbf Hives and Rash Cephalexin Hives Ciprofloxacin Hives [...] Note: Parts of this documentwere created using [employer] speech recognition software. As a r esult, there may be unintended word spelling errors. Every attempt was made to correct the dictation. Lew colin in this encounter Plan of Treatment +--------+---------+ + + + | Date | Type | Specialty | Care Team | Description | +--------+---------+ + + + | Office | Internal Medicine | EmmyAlberto, | | | 2019 | Visit | | MD [place] | | | | | | [address] [place] | | | | | | [place] [address] | | | | | | [phone] | | | | | | | [...] ST. | [address] | [place], [place] | [phone] | | [facility] | | [address] | | | - LABORATORY | | [...] | | | | | with both AL-3 and | | | | | | MPO-ANCA enzyme | | | | | | immunoassays. Nadir as | | | | | | 5% serum samples are | | | | | | positive only by | | | | | | EIA.Ref. AM J Clin | | | | | | Pathol 1998;111:507-513. | | | | + + + [...] + + | Performed at: 01 - [facility] [address], | REFERENCE LAB | | [place], [place] [address] Deckhand Engineer: Manish Chin MD, Phone: | [facility] | | [phone] Performed at: 02 - [facility] [address] | | | [place], [place] [address] Deckhand Engineer: Jeannine Mendoza MD, | | | Phone: [phone] | | + + + + + + + + | Performing | Address | City/State/Zipcode | Phone Number | | Organization | | | | + + + + + | REFERENCE LAB | [address] | [place], [place] | [phone] | | [facility] | [facility] | [address] | | + + + + + [...] + + | Performed at: 01 - [facility] [place] [address], | REFERENCE LAB | | [place], [place] [address] Deckhand Engineer: Bandar Gan MD, Phone: | [facility] | | [phone] | | + + + + + + + + | Performing | Address | City/State/Zipcode | Phone Number | | Organization | | | | + + + + + | REFERENCE LAB | [address] | [place], [place] | [phone] | | [facility] | [address] | [address] | | + + + + + [...] [address] | [place] | [phone] | | [facility] | | [address] | | | - LABORATORY | | | | + + + + + C-Reactive Protein (11/15/2018 9:59 AM PDT) + +-------+ + + + | Component | Value | Ref Range | Performed | Pathologist | | | | | At | Signature | + +-------+ + + + | CRP | <4.00 | <10.00 mg/L | [facility] | | | | [...] [address] | [place] | [phone] | | [facility] | | [address] | | | - LABORATORY | | | | + + + + + Sedimentation Rate (11/15/2018 9:59 AM PDT) + +-------+ + + + | Component | Value | Ref Range | Performed | Pathologist | | | | | At | Signature | + +-------+ + + + | Erythrocyte | 4 | <30 mm/hr | [facility] | | | | | | [facility] | | | Sedimentati | | [...] [address] | [place] | [phone] | | [facility] | | [address] | | | - LABORATORY | | [...] 11 | 9 - 23 mg/dL | [facility] | | | | | | [facility] | | | | | | MEDICAL | | | | | | CENTER - | | | | | | LABORATORY | | + + + + + + | Creatinine | 0.82 | 0.55 - 1.02 | [facility] | [...] mL/min/1.73m2 | [facility] | | | Bangladeshi | RATE,ESTIMATED | | MEDICAL | | | | mL/min/1.06x2Oecz than | | CENTER - | | [...] | ine Ratio | | | [facility] | | [...] + + | [facility] | [address] | [place] | [phone] | | [facility] | | [address] | | | - LABORATORY | | [...]
--- OUTSIDE RECORDS SUMMARY | ~2020-01-25 | XMS | Encounter Summary ---
Demographics + + + | Address | [address] | | | [place] [address] | + + + | Home Phone [...] Providers + +------+ + | Care Family Literacy Coordinator Name | Role | Phone | [...] [address] | | | | | [place], [place] | [place], [place] | | | | | [address] | [address] | | | | | [phone] | [phone] | | | | | | | [...]
--- OUTSIDE RECORDS SUMMARY | ~2020-01-25 | XMS | Encounter Summary ---
Demographics + + + | Address | [address] | | | [place] [address] | + + + | Home Phone [...] Providers + +------+ + | Care Media Marketing Director Name | Role | Phone | [...] + + | 09/09/ | Telephone | [facility] | Alanis, | Phone Attempt | | 2018 | | [facility] [address] | MD [place] | | | | | [place], | [address] [facility] | | | | | [place] [address] | [place] [address] | | | | | [phone] | [phone] | | | | | | | [...] | | | | | | [address] [place] [address] [address] | | | | | | [place] [address] | | | | | | [phone] | | | | | | | | +--------+---------+ + + + documented as of this encounter Visit Diagnoses Not on filedocumented in this encounter
--- OUTSIDE RECORDS SUMMARY | ~2020-01-25 | XMS | Encounter Summary ---
Demographics + + + | Address | [address] | | | [place] [address] | + + + | Home Phone [...] Providers + +------+ + | Care Adjunct Physical Education Instructor Name | Role | Phone [...]
--- OUTSIDE RECORDS SUMMARY | ~2020-01-25 | XMS | Encounter Summary ---
Demographics + + + | Address | [address] | | | [place] [address] | + + + | Home Phone [...] Providers + +------+ + | Care Medical Territory Manager Name | Role | Phone [...] + | 06/03/ | Telephone | [facility] | Alanis, | Referral | | 2016 | | MEDICINE [address] [place] [address] | MD [place]rona | | | | | [place], | [address] [facility] | | | | | [place] [address] | [place] [address] | | | | | [phone] | [phone] | | | | | | | [...] encounter with the pain clinic in the [facility], [place] States that th e new medication [...] 3:53 PM PSTContact/Gerardo ler: Belinda Contact Number: [phone] Provider/Nurse: Emmy Reason for Call: Referral Last [...] | | | | | | [address] [place] [address] [place] | | | | | | [place] [address] | | | | | | [phone] | | | | | | | | +--------+---------+ + + + documented as of this encounter Visit Diagnoses Not on filedocumented in this encounter
--- OUTSIDE RECORDS SUMMARY | ~2020-01-25 | XMS | Encounter Summary ---
Demographics + + + | Address | [address] | | | [place] [address] | + + + | Home Phone [...] Team Providers + +------+ + | Care Equine Vet Name | Role | Phone | + [...] of this encounter Progress Notes Interface, [place] [employer] In - 11/05/2005 2:06 AM PDT [id number] GEOVANNI Barnes [id number] Clinic Date: 10/20/2005 Clinic: Bariatric Surgery Clinic Subjective: Ms. Meehan returns today for continued evaluation of her abdominal pain. She has had a gastric bypass followed by a panniculectomy approximately 1 year ago. She has had diffuse sharp and crampy abdominal pain which lasts up to 45 minutes. She says "it takes her breath away." She went to the emergency room at [facility] last night and got some IV pain [...] . Wali Valentine M.D. CONNOR / SHARIF [id number] / [id number] / [id number] / [id number] Electronically signed by Luther Valentine 11-04-2005 11:36:40 AM documented i n this encounter Plan of Treatment Not on filedocumented as of this encounter Visit Diagnoses Not on filedocumented in this encounter
--- OUTSIDE RECORDS SUMMARY | ~2020-01-25 | XMS | Encounter Summary ---
Demographics + + + | Address | [address] | | | [place] [address] | + + + | Home Phone [...] | | | [facility] | [place], [place] | | | | | [address] | [address] | | | | | [address] | [phone] | | | | | Physician's | | | | | | Pavilion, 1st floor | | | | | | [place], [place] | | | | | | [address] | | | | | | [phone] | | | +--------+ + + + [...]
--- OUTSIDE RECORDS SUMMARY | ~2020-01-25 | XMS | Encounter Summary ---
Demographics + + + | Address | [address] | | | [place] [address] | + + + | Home Phone [...] Team Providers + +------+ + | Care Firearms Sales Associate Name | Role | Phone [...] | | | | Mailcode: CR131 | [place], [place] | | | | | Outpatient Clinic | [address] | | | | | [facility], | [phone] | | | | | [place] [address] | | | | | | [phone] | | | +--------+ + + + [...] | | | | | 2,SERUM | [facility] | | | | | | Laboratories. | | | | + + + + + + + + | Specimen | + + | | + + + + + + + | Performing | Address | City/State/Zipcode | Phone Number | | Organization | | | | + + + + + | [facility] | [address] | [place] [address] | | | LABORATORY | | | | + + + + + documented in this encounter Visit Diagnoses Not on filedocumented in this encounter"
--- OUTSIDE RECORDS SUMMARY | ~2020-01-25 | XMS | Encounter Summary ---
Demographics + + + | Address | [address] | | | [place] [address] | + + + | Home Phone [...] Providers + +------+ + | Care High Lift Mule Operator Name | Role | Phone | [...] | | [facility] | [place], [place] | | | | | [address] | [address] | | | | | [address] | [phone] | | | | | Physician's Sharmila | | | | | | Physician's | | | | | | [place], | | | | | | [place] [address] | | | | | | [phone] | | | +--------+---------+ + + + [...]
--- OUTSIDE RECORDS SUMMARY | ~2020-01-25 | XMS | Encounter Summary ---
Demographics + + + | Address | [address] | | | [place] [address] | + + + | Home Phone [...] Team Providers + +------+ + | Care Linemarker Name | Role | Phone | + [...] + + | 06/21/ | Office | [facility] Comprehensive | Delfina Molina, | LBP (Low Back Pain) | | 2008 | Visit | Pain Center at | ANP | (Primary Dx); Spinal | | | | [facility] | | Fusion Lumbar spine | | | | [address] | | ; Hx Arthroplasty | | | | Center for [facility] | | of both Knees; | | | | and Healing, | | Fibromyalgia | | | | | | syndrome 729.1; | | | | Floor [place], [place] | | Abdominal Pain, | | | | [address] | | dumping syndrome Hx | | | | [phone] | | of gastric bypass; | | [...] Meehan is a 48 y.o. female [facility] Comprehensive [...] removal on 05/15/2008 Dr. Betty Thomas MD [facility], after having problems with nu mbness, burning [...] a migraine sp ecialist this week in [place], Dr Lucio Nichols. Next area of chronic [...] drawing has be completed, which I reviewed. [facility] Brief Pain Inventory: (ten= worst possible [...] 300 mg) by oral route once daily vybjhzbzwo-huyymjclkebnf-aymcmmuy (FIORICET) 50-325-40 mg Oral Tablet take 2 [...] 278 01/18 Paniculectomy Hx lumbar fusion 05/2008 L1-S2uhxsyc with bone spur removals Family History Problem [...] psychologist when ever sh e comes to [place] for medical care. She has a strong [...] [facility] Mail code CH [address] [facility] [address] [facility] [address] Ty Mendez - 12/2008 9:11 AM PSTCMA History: PMH/PSH/SH/FH review Patient had lumbar fusion in May 22. She also reports tooth abcess. She has script for an tibiotic tx waiting for her in [place]. 1. Has your pain changed from your [...]
--- OUTSIDE RECORDS SUMMARY | ~2020-01-25 | XMS | Encounter Summary ---
Demographics + + + | Address | [address] | | | [place] [address] | + + + | Home Phone [...] Team Providers + +------+ + | Care Algebra Teacher Name | Role | Phone | + +------+ + PCP | Unavailable | + +------+ + Encounter Details +--------+ + + + + | Date | Type | Department | Care Team | Description | +--------+ + + + + | 07/04/ | Office | Endocrinology, | Beto Meeks MD | | | 2005 | Visit-ECX | Diabetes and | [address] | | | | | Clinical Nutrition | [place], [place] | | | | | [address] | [address] | | | | | Loop Mailcode: OPC5 | [phone] | | | | | Outpatient Clinic | | | | | | [facility] | | | | | | [place] [address] | | | | | | [phone] | | | +--------+ + + + [...]
--- OUTSIDE RECORDS SUMMARY | ~2020-01-25 | XMS | Encounter Summary ---
Demographics + + + | Address | [address] | | | [place] [address] | + + + | Home Phone [...] Providers + +------+ + | Care Hvac Refrigeration Technician Name | Role | Phone | + +------+ + | Crystal Gutierrez MD | PCP | | + +------+ + Encounter Details +--------+ + + + + | Date | Type | Department | Care Team | Description | +--------+ + + + + | 09/14/ | Procedure - | [facility] Division of | Endoscopy, Gi [...] [address] | | | | | | [place], [place] | | | | | | [address] | | | | | | [phone] | | | +--------+ + + + [...] + + + | PROCEDURES:PANENDOSCOPY (EGD) CPT: [id number]. PERSONNEL:THE | | | ATTENDING PHYSICIAN WAS [...] AM PDT | | PROCEDURES:PANENDOSCOPY (EGD) CPT: [id number]. | | PERSONNEL:THE ATTENDING PHYSICIAN WAS PRESENT [...]
--- OUTSIDE RECORDS SUMMARY | ~2020-01-25 | XMS | Encounter Summary ---
Demographics + + + | Address | [address] | | | [place] [address] | + + + | Home Phone [...] Providers + +------+ + | Care Operations Supervisor Chemical Cleaning Name | Role | Phone | [...] [id number] | | | | | | [place], [place] | | | | | | [address] | | | | | | [phone] | | | +--------+--------+ + + + [...]
--- OUTSIDE RECORDS SUMMARY | ~2020-01-25 | XMS | Encounter Summary ---
Demographics + + + | Address | [address] | | | [place] [address] | + + + | Home Phone [...] Team Providers + +------+ + | Care Sandstone Splitter Name | Role | Phone | [...] | Transcriptions | + + | Interface, Sandwich Board Carrier In - 08/06/2005 2:06 AM PST | | [id number] | | [id number] GEOVANNI Barnes | | | | Date: 07/25/2005 | | | | Attending Surgeon: Chris Padgett M.D. | | | | Animal Eviscerator(s): Bandar Langley M.D. | | | | [...] | | DT / HS | | [id number] / [id number] / [id number] / [id number] | | | | | | | | | | | | Electronically signed by Chris Padgett 08-05-2005 12:36:41 PM | + + documented in this encounter Visit Diagnoses Not on filedocumented in this encounter"
--- OUTSIDE RECORDS SUMMARY | ~2020-01-25 | XMS | Encounter Summary ---
Demographics + + + | Address | [address] | | | [place] [address] | + + + | Home Phone [...] Providers + +------+ + | Care Tape Sewer Name | Role | Phone | [...] [address] Bethanie | | | | | [facility] | [place], [place] | | | | | [address] | [address] | | | | | [address] | [phone] | | | | | Physician[facility] Pavilion | | | | | | Physician's | | | | | | Pavilion [place], | | | | | | [place] [address] | | | | | | [phone] | | | +--------+--------+ + + + [...]
--- OUTSIDE RECORDS SUMMARY | ~2020-01-25 | XMS | Encounter Summary ---
Demographics + + + | Address | [address] | | | [place] [address] | + + + | Home Phone [...] Providers + +------+ + | Care Solutions Executive Cloud Sales Name | Role | Phone | [...] Post | | | | [facility] | | Bariatric Surgery | | | | and Healing, | | | | | | Building [address] | | | | | | [place], [place] | | | | | | [address] | | | | | | [phone] | | | +--------+------+ + + + [...] Performed At | + + + | [id number] Estimated GFR > 60 mL/min/1.73 sq m if non- | [facility] | | [place] Islander [id number] Estimated GFR > 60 mL/min/1.73 sq m if | DEPARTMENT OF | | [place]er GFR is estimated using the MDRD [...] DEPARTMENT OF | [address] | [place] [address] | | | PATHOLOGY | [address] | | | + + + + + | [facility] DEPARTMENT OF | [address] | [place] [address] | | | PATHOLOGY | [address] [...] + | [facility] | [address] | [place] [address] | | | PATHOLOGY | [address] | | | + + + + + | [facility] | [address] | [place] [address] | | | PATHOLOGY | [address] | | | + + + + + documented in this encounter Visit Diagnoses + + | Diagnosis | + + | Chronic abdominal pain Abdominal pain, unspecified site | + + | Status post bariatric surgery Bariatric surgery status | + + documented in this encounter"
--- OUTSIDE RECORDS SUMMARY | ~2020-01-25 | XMS | Encounter Summary ---
Demographics + + + | Address | [address] | | | [place] [address] | + + + | Home Phone [...] Providers + +------+ + | Care Log Cut Off Sawyer Name | Role | Phone | [...] as of this encounter Progress Notes Interface, Industrial Gas Servicer In - 01/12/2005 6:20 AM PDT [id number] GEOVANNI Barnes Clinic Date: 11/18/2004 Clinic: General [...] pictures to our financial sales manager and information assurance for evaluation for medicare for panniculectomy. Described [...] authorization for panniculectomy. Melisa Thorne / SHARIF [id number] / [id number] / [id number] / [id number] cc: Chris Padgett M.D. Joanna Valdez MD [facility] [address] [place] [address] Electronically signed by Kenisha Melton 11-26-2004 05:00:55 PM documented i n this encounter Plan of Treatment Not on filedocumented as of this encounter Visit Diagnoses Not on filedocumented in this encounter"
--- OUTSIDE RECORDS SUMMARY | ~2020-01-25 | XMS | Encounter Summary ---
Demographics + + + | Address | [address] | | | [place] [address] [...] Providers + +------+ + | Care Drafter Plumbing Name | Role | Phone | [...] Progress Notes Interface, Tool Keeper In - 01/12/2005 9:01 AM PDT [id number] GEOVANNI Barnes Clinic Date: 05/20/2004 Clinic: Morbid [...] Surgery Chris Padgett M.D. MS / HS [id number] / [id number] / [id number] / [id number] documented i n this encounter Plan of Treatment Not on filedocumented as of this encounter Visit Diagnoses Not on filedocumented in this encounter"
--- OUTSIDE RECORDS SUMMARY | ~2020-01-25 | XMS | Encounter Summary ---
Demographics + + + | Address | [address] | | | [place] [address] | + + + | Home Phone [...] Providers + +------+ + | Care Cash Register Balancer Name | Role | Phone | + [...]
--- OUTSIDE RECORDS SUMMARY | ~2020-01-25 | XMS | Encounter Summary ---
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 11/11/2006 Belinda Meehan is a 46 y.o. 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 Expectations for this visit include [...] hypothyroidism Bone spur on right heel - evp operations last week, insurance [place] for [place] Current [...] bid 2. Fentanyl patch 25mcg/hr Q72hr 3. [place] 10/325 NTE 4 per day 4 Continue [...] or sooner if needed. DELFINA MOLINA [facility] Comprehensive Pain Center Mail code CH 4P [facility] Health and [facility] [address] [facility] [address] Tasha Can - 11/11/2006 9:29 AM PDTCMA [...]
--- OUTSIDE RECORDS SUMMARY | ~2020-01-25 | XMS | Encounter Summary ---
Demographics + + + | Address | [address] | | | [place] [address] | + + + | Home Phone [...] Team Providers + +------+ + | Care Justowriter Operator Name | Role | Phone | [...]
--- OUTSIDE RECORDS SUMMARY | ~2020-01-25 | XMS | Encounter Summary ---
Demographics + + + | Address | [address] | | | [place] [address] | + + + | Home Phone [...] Providers + +------+ + | Care Golf Starter And Ranger Name | Role | Phone | + [...] | Transcriptions | + + | Interface, Puff Ironer In - 06/05/2005 5:20 AM PST Date: | | 11/22/2003Attending Surgeon: Chris Padgett M.D.Temporary Help Agency Referral Clerk(s): | | Ramon Valentine M.D.Preoperative Diagnosis:Morbid obesity.Postoperative [...] our proximal transected portion down and did rzidr-it-uhih stapled jejunojejunostomy | | using a single [...] to this antecolic and antegastric andperformed a vgec-ww-yoiw gastrojejunostomy | | after placing a posteriorinterrupted [...] Valentine | | Syed Padgett M.D.MOOKIE / [id number] / [id number] / [id number] / [id number]: 11/22/2003T: | | 11/22/2003 | |cm to [...] transected portion down and did a | |wuup-bm-fmpp stapled jejunojejunostomy using a single firing blue [...] antecolic and antegastric and | |performed a ldjz-np-uhjb gastrojejunostomy after placing a posterior | |interrupted [...] | | | | | | | |Chrsi Padgett M.D. | | | |MOOKIE / SHARIF | |[id number] / [id number] / [id number] / [id number] | | | | | + + documented in this encounter Visit Diagnoses Not on filedocumented in this encounter"
--- OUTSIDE RECORDS SUMMARY | ~2020-01-25 | XMS | Encounter Summary ---
Demographics + + + | Address | [address] | | | [place] [address] | + + + | Home Phone [...] Providers + +------+ + | Care Event Staff Member Name | Role | Phone | [...] + + | 08/20/ | Telephone | [facility] | Alanis, | Other | | 2017 | | MEDICINE [address] | MD [place] | | | | | [place], | [address] [facility] | | | | | [place] [address] | [place] [address] | | | | | [phone] | [phone] | | | | | | | [...] records. Patient stated she was seen in [place] yesterday for a s urgery on her [...] [place] | | | | | | [facility] [address] | | | | | | [place] [address] | | | | | | [phone] | | | | | | | | +--------+---------+ + + + documented as of this encounter Visit Diagnoses Not on filedocumented in this encounter"
--- OUTSIDE RECORDS SUMMARY | ~2020-01-25 | XMS | Encounter Summary ---
Demographics + + + | Address | [address] | | | [place] [address] | + + + | Home Phone [...] | John PA [facility] | Pre-Operative | | | | [address] | [facility] | Examination (Primary | | | | Mailcode: [id number] | [address] | Dx) | | | | Physician's Pavilion | [address] [place], | | | | | [place], [place] | [place] [address] | | | | | [address] | [phone] | | | | | [phone] | | | +--------+---------+ + + + [...] surgeries scheduled to take place on the [place] at the [facility]: Surgeries scheduled in the [facility] ([address] [place] [address]): registration is located on the 4th floor of [facility] (Day Surgery). Surgeries scheduled in the [facility]: registration is located on the 9th floor. Surgeries scheduled in [facility]: registration is located on the 6th floor. Surgeries scheduled in the [facility]: registration is located i n the [facility] on the first floor. For surgeries scheduled to take place at the [facility] & [facility]: registration is l ocated on the [...] you use specialized medical equipment at [facility], please check with your provider [...] surgeries scheduled to take place on the [place] at the [facility]: Surgeries scheduled in the [facility] ( North): registration is located on the 4th floor of [facility] (Day Surgery). Surgeries scheduled in the [facility]: registration is located on the 9th floor. Surgeries scheduled in [facility]: registration is located on the 6th floor. Surgeries scheduled in the [facility]: registration is located i n the [facility] on the first floor. For surgeries scheduled to take place at the [facility]: registration is l [...] you use specialized medical equipment at [facility], please check with your provider [...] Overview Note: Surgery 05/15/08 Dr Ricky Garnett [place] JEY karlos to get operative reports Osteopenia [...] 08/2007 right knee Hx lumbar fusion 05/2008 L5-R3ouboed with bone spur removals Hx appendectomy Hx [...] Morphine IM ( only in [facility]) made gut pain worse 08/27/06: Trial of oral MSIR caused leg swelling Clarithromycin Hives Mainly in the legs Hwkuahw-iaxspfvotc-kam-caff Balance problems Amitriptyline Grand mal seizures Fioricet W/codeine (Cnu-nhxcbrzicc-hoizcvlklv-caf) FAMILY HISTORY: Family History Problem Relation Cancer [...] + | [facility] | [address] | [place] [address] | | | PATHOLOGY | [address] | | | + + + + + | [facility] DEPARTMENT OF | [address] | [place] [address] | | | PATHOLOGY | [address] [...] DEPARTMENT OF | [address] | [place] [address] | | | PATHOLOGY | [address] | | | + + + + + | [facility] | [address] | [place] [address] | | | PATHOLOGY | [address] | | | + + + + + documented in this encounter Visit Diagnoses + + | Diagnosis | + + | Other specified pre-operative examination - Primary | + + documented in this encounter
--- OUTSIDE RECORDS SUMMARY | ~2020-01-25 | XMS | Encounter Summary ---
Demographics + + + | Address | [address] | | | [place] [address] | + + + | Home Phone [...] Providers + +------+ + | Care Correctional Casework Specialist Name | Role | Phone [...] + + | 04/08/ | Telephone | [facility] Comprehensive | Rosi [place], | | | 2012 | | Pain Center at | ANP | | | | | [facility] | | | | | | [address] | | | | | | [facility] | | | | | | and Healing, | | | | | | Building , | | | | | | Floor [place], [place] | | | | | | [address] | | | | | | [phone] | | | +--------+ + + + [...]
--- OUTSIDE RECORDS SUMMARY | ~2020-01-25 | XMS | Encounter Summary ---
Demographics + + + | Address | [address] | | | [place] [address] | + + + | Home Phone [...] Providers + +------+ + | Care Photographer Assistant Name | Role | Phone | [...] Refill Request | | 2009 | | [facility] [address] | [address] | (SUCRALFATE) | | | | Bethanie Mailcode: CH4S | [facility] | | | | | [facility] | [place], [place] | | | | | and Healing, | [address] | | | | | [facility] | [phone] | | | | | Floor [place], [place] | | | | | | [address] | | | | | | [phone] | | | +--------+--------+ + + + [...]
--- OUTSIDE RECORDS SUMMARY | ~2020-01-25 | XMS | Encounter Summary ---
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 Diagnosis: [place] I: 1. (296.32) Major depressive disorder, recurrent, moderate. 2. (309.24) Adjustment disorder with anxiety. 3. (307.89) Chronic pain disorder associated with both psychological factors and a gene ral medical condition. [place] II: Deferred [place] III: abdominal pain, migraine headache, low back pain. [place] IV: low finances [place] V: GAF 55-60 Plan: Return with next medical follow-up appointment. Check mood, knee surgery, relaxation, acti vity, distraction. Continue cognitive/behavioral therapy. Total time spent with patient was approximately 45 minutes. LUKASZ CHARLES PHD [facility] [address] [facility], 4th [place] [address] documented in this encount er Plan of [...]
--- OUTSIDE RECORDS SUMMARY | ~2020-01-25 | XMS | Encounter Summary ---
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 Provider: DELFINA MOLINA ANP Nathalia Keyes - 007 12:04 PM PST Physical Therapy Medicare Progress Note Date: 08/12/2006 Belinda Meehan [id number]. 1960 Start of Care: 06/23/2006 Referring Provider: [...] pressure to right cervical structures provocative. Nguyễn kenisha's treatment was limited today secondary to severe [...] + + +--------+ + + | [facility] | Procedures | Routin | Spondylosis [...] + + +--------+ + + | [facility] | Procedures | Routin | Spondylosis [...]
--- OUTSIDE RECORDS SUMMARY | ~2020-01-25 | XMS | Encounter Summary ---
Demographics + + + | Address | [address] | | | [place] [address] | + + + | Home Phone [...] Providers + +------+ + | Care Mechanic Recovery Name | Role | Phone | [...] + + | 08/28/ | Office | [facility] Comprehensive | Delfina Lambert, | Neck Pain; Radicular | | 2008 | Visit | Pain Center at | ANP | Pain in Left Arm; | | | | [facility] | | Fibromyalgia; | | | | [address] | | Chronic Bilateral | | | | Center for [facility] | | Shoulder Pain; | | | | and Healing, | | Coccydynia; LBP (Low | | | | | | Back Pain); | | | | Floor [place], [place] | | Adjustment Disorder | | | | [address] | | with Anxiety; Major | | | | [phone] | | Depressive Disorder, | | | [...] Belinda Meehan is a 48 y.o. female [facility] Return Visit Chief Complaint: [...] drawing has be completed, which I reviewed. 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 [facility] Plan of Treatment Not on [...]
--- OUTSIDE RECORDS SUMMARY | ~2020-01-25 | XMS | Encounter Summary ---
Demographics + + + | Address | [address] | | | [place] [address] | + + + | Home Phone [...] Providers + +------+ + | Care Office Systems Technology Instructor Name | Role | Phone [...] Naeem Mcrae | | | | | [facility] | [place], [place] | | | | | and Healing, | [address] | | | | | [facility] | [phone] | | | | | Floor [place], [place] | | | | | | [address] | | | | | | [phone] | | | +--------+ + + + [...]
--- OUTSIDE RECORDS SUMMARY | ~2020-01-25 | XMS | Encounter Summary ---
Demographics + + + | Address | [address] | | | [place] [address] | + + + | Home Phone [...] Team Providers + +------+ + | Care Dope Worker Name | Role | Phone | [...] 2005 | Activity | TRACE Wilson MD [address] | | | | | [place] Mailcode: [id number] | [place], [place] | | | | | [place], [place] | [address] | | | | | [address] | [phone] | | | | | [phone] | | | +--------+ + + + [...] M.D./PathologistT:04/06/ | | | | | | 06:[facility] I have reviewed | | [...] + + | [facility] | [address] | [place] [address] | | | PATHOLOGY | [address] | | | + + + + + | [facility] DEPARTMENT OF | [facility] | [place] [address] | | | PATHOLOGY | [address] | | | + + + + + documented in this encounter Visit Diagnoses Not on filedocumented in this encounter"
--- OUTSIDE RECORDS SUMMARY | ~2020-01-25 | XMS | Encounter Summary ---
Demographics + + + | Address | [address] | | | [place] [address] | + + + | Home Phone [...] Providers + +------+ + | Care Insurance Advisor Name | Role | Phone | [...] [address] | | | | | [facility] | [place], [place] | | | | | Pavilion [address] | [address] | | | | | [address] | [phone] | | | | | Physician's Pavilion | | | | | | Physician's | | | | | | Pavilion [place], | | | | | | [place] [address] | | | | | | [phone] | | | +--------+--------+ + + + [...]
--- OUTSIDE RECORDS SUMMARY | ~2020-01-25 | XMS | Encounter Summary ---
Demographics + + + | Address | [address] | | | [place] [address] | + + + | Home Phone [...] Providers + +------+ + | Care Estimator Project Manager Name | Role | Phone [...] + + | 03/04/ | Telephone | [facility] | Alanis, | Referral; Medication | | 2016 | | MEDICINE [address] | MD [place] | Refill | | | | [place], | [address] [place] | | | | | [place] [address] | [place] [address] | | | | | [phone] | [phone] | | | | | | | [...] her last visit. She is still requesting [place] to he lp her pain. I told her I would send a message. elephone Encounter - Tuan Snider - 03/05/2017 3:[address]/Caller: [facility] Contact Number: [phone] Provider/Nurse: Emmy Reason for Call: Taniya calling in regarding pt stated they have received numerous calls fro m patient to schedule an appointment with them. Taniya is stating they have not received refe rral and if it could be sent to their main fax [phone]. Also Taniya wanted to add that they [...] | | | | | [place] [address] | | | | | | [phone] | | | | | | | | +--------+---------+ + + + documented as of this encounter Visit Diagnoses Not on filedocumented in this encounter"
--- OUTSIDE RECORDS SUMMARY | ~2020-01-25 | XMS | Encounter Summary ---
Demographics + + + | Address | [address] | | | [place] [address] | + + + | Home Phone [...] Providers + +------+ + | Care Travel Manager Name | Role | Phone | [...] Pavilion | | | | | | [place], [place] | | | | | | [address] | | | | | | [phone] | | | +--------+ + + + [...]
--- OUTSIDE RECORDS SUMMARY | ~2020-01-25 | XMS | Encounter Summary ---
Demographics + + + | Address | [address] | | | [place] [address] | + + + | Home Phone [...] + +------+ + | Care Emergency Department Technician Name | Role | Phone | [...] + | 03/31/ | Office | [facility] Comprehensive | Delfina Molina, | Encounter for | | 2006 | Visit | Pain Center at | ANP | [facility] (Current[facility] | | | | [facility] | | Use of Opioids; Left | | | | [address] | | Knee Pain; | | | | [place] for [facility] | | Arthroplasty of the | | | | and Healing, | | Left Knee; DJD | | | | Building | | (Degenerative Joint | | | | Floor [place], [place] | | Disease) of Knee; | | | | [address] | | Fibromyalgia | | | | [phone] | | syndrome 729.1; | | | [...] would like to anticipate follow at the [facility] Center in 2-3 months [...] CH 4P [facility] Health and [address] [address] Tasha Can - 03/31/2007 9:15 [...]
--- OUTSIDE RECORDS SUMMARY | ~2020-01-25 | XMS | Encounter Summary ---
Demographics + + + | Address | [address] | | | [place] [address] | + + + | Home Phone [...] Providers + +------+ + | Care Validation Software Facilitator Name | Role | Phone | [...] | | | | | | | [facility] | | | | | | [facility] and | | | | | | | Healing, | | | | | | | Building 2 | | | | | | | [place], [place] | | | | | | | [address] | | | | | | | Phone: | | | | | | | [phone] | | | | | | | Fax: | | | | | | | [phone] | +--------+--------+ + + + + Encounter Details +--------+---------+ + + + | Date | Type | Department | Care Team | Description | +--------+---------+ + + + | 01/10/ | Office | Dig[facility]ive Health | Chris Padgett, | Status post | | 2009 | Visit | Center [address] | [address] [facility] | bariatric surgery | | | | Ave Mailcode: CH4S | [address] | (Primary Dx) | | | | [facility] | [place], [place] | | | | | and [place], | [address] | | | | | Building 1, [address]th | [phone] | | | | | Floor [place], [place] | | | | | | [address] | | | | | | [phone] | | | +--------+---------+ + + + [...] and I asked her to see a public relations writer where she lives. Will obtain CBC and [...]
--- OUTSIDE RECORDS SUMMARY | ~2020-01-25 | XMS | Encounter Summary ---
Demographics + + + | Address | [address] | | | [place] [address] | + + + | Home Phone [...] Providers + +------+ + | Care Library Media Assistant Name | Role | Phone | [...] + | 11/23/ | Office | [facility] | Delfina Molina, | LBP (Low Back Pain); | | 2007 | Visit | Pain Center at | ANP | Arthroplasty of the | | | | [place] | | Left Knee; | | | | [address] | | Spondylosis with | | | | [place] for [facility] | | Myelopathy, Lumbar | | | | and Healing, | | Region; Fibromyalgia | | | | | | syndrome 729.1; | | | | Floor [place], [place] | | Encounter for | | | | [address] | | Long-Term (Current) | | | | [phone] | | Use of Opioids; | | [...] Meehan is a 47 y.o. female [facility] [...] drawing has be completed, which I reviewed. [facility] Brief Pain Inventory: Right Now: [...] Result Impression NAME: BELINDA MEEHAN MR #: [id number] DATE OF EXAM: [id number] PHYSICIAN: EMMA ROJAS [...] DISK BULGE. Transcribed By: Armaan Mata : [id number] : 1442 Approved By: Radiologist: Physical Examination: [...] seeing Nathalia Arora PT here at the [facility] to address [...] vs Hernia. 6. PT here at the [facility] available 7. Repeat TESI as needed. DELFINA MOLINA [facility] Mail code CH 4P [facility] and [address] [address] Ty Omalley - 8 9:12 AM PDTCMA History: PMH/PSH/SH/FH review 1. [...]
--- OUTSIDE RECORDS SUMMARY | ~2020-01-25 | XMS | Encounter Summary ---
Demographics + + + | Address | [address] | | | [place] [address] | + + + | Home Phone [...] Team Providers + +------+ + | Care Acoustic Sensor Operator Name | Role | Phone | + +------+ + PCP | Unavailable | + +------+ + Encounter Details +--------+ + + + + | Date | Type | Department | Care Team | Description | +--------+ + + + + | 12/21/ | Results | Rheumatology | Caitlin Rivera, | | | 2003 | Only | [place] [address] | [address] | | | | | Sharmila Schilling | | | | | | Mailcode: OPC5 | | | | | | Outpatient Clinic | | | | | | Building [facility] | | | | | | [place] [address] | | | | | | [phone] | | | +--------+ + + + [...] Iron and TIBC, Serum Test performed by [facility] | | | [facility]. | | + + + + + + + + | Performing | Address | City/State/Zipcode | Phone Number | | Organization | | | | + + + + + | [facility] | [address] | [place] [address] | | | LABORATORY | | | [...] | + + + + + | [facility] | [address] | [place] [address] | | | LABORATORY | | | [...] | | | | | performed at [facility] | | | | | | [facility] | | | | | | Laboratory | | | | + + + + + + + + | Specimen | + + | | + + + + + + + | Performing | Address | City/State/Zipcode | Phone Number | | Organization | | | | + + + + + | [facility] | [address] | [place] [address] | | | LABORATORY | | | | + + + + + documented in this encounter Visit Diagnoses Not on filedocumented in this encounter"
--- OUTSIDE RECORDS SUMMARY | ~2020-01-25 | XMS | Encounter Summary ---
Demographics + + + | Address | [address] | | | [place] [address] | + + + | Home Phone [...] Providers + +------+ + | Care Provider Network Manager Name | Role | Phone | [...] + + | 12/20/ | Telephone | [facility] | [place], | Results | 2019 | | MEDICINE [address] | MD [place] | | | | | MALIK [place], | [address] [facility] | | | | | [place] [address] | [place] [address] | | | | | [phone] | [phone] | | | | | | | [...] Miscellaneous Notes Telephone Encounter - Shanta Whaley, Bulwark Carpenter - 12/21/2019 3:34 PM PDTPt ad vised [...] d of monthly. elephone Encounter - Shanta Whaley, Bulwark Carpenter - 12/21/2019 2:52 PM PDTAdv ised pt with MD recommendations and comments. Patient comments doctor from her gastric bypass surgery in 2003, suggested to take B12 inje ctions for the rest of her life. Did not give a reason as to why she has to receive them. Please advise. elephone Encounter - Rebekah Maldonado - 12/21/2019 2:20 PM PDTPatient returned your call. Please advise elephone Encounter - Isabell serranoPriscilla RN - 12/21/2019 12:37 PM PDTCalled and [...] [place] | | | | | | [facility] [address] | | | | | | [place] [address] | | | | | | [phone] | | | | | | | | +--------+---------+ + + + documented as of this encounter Visit Diagnoses Not on filedocumented in this encounter"
--- OUTSIDE RECORDS SUMMARY | ~2020-01-25 | XMS | Encounter Summary ---
Demographics + + + | Address | [address] | | | [place] [address] | + + + | Home Phone [...] | Pain | Diagnoses | Miracle, | [place], | | | | Management | LBP (low | NIHARIKA Jean | Lukasz Rhodes, PhD | | | | | back pain) | [address] | [address] | | | | | DJD | [address] | Ave | | | | | (degenerativ | [place], [place] | [place] | | | | | e joint | [address] | [address] | | | | | disease) of | | Phone: | | | | | knee Knee | | [phone] | | | | | pain Major | | Fax: | | | | | depressive | | [phone] | | | | | disorder, | [...] 04/13/ | Office | Pain Center at [facility] | Lukasz Charles, | Major Depressive | | 2007 | Visit | [address] | PhD [address] | Disorder, Recurrent | | | | [facility] | [place], [place] | Episode, Mild (HCC); | | | | and Healing, | [address] | LBP (Low Back | | | | | [phone] | Pain); Migraine | | | | Floor [place], [place] | | Headache; Adjustment | | | | [address] | | Disorder with | | | | [phone] | | Anxiety | +--------+---------+ + + [...] plans for her surgical recovery period. Diagnosis: Hatfield I: 1. (296.31) Major depressive disorder, recurrent, mild. 2. (309.24) Adjustment disorder with anxiety. 3. (307.89) Chronic pain disorder associated with both psychological factors and a gene ral medical condition. Hatfield II: Deferred Hatfield III: abdominal pain, migraine headache, low back pain. Hatfield IV: low finances Hatfield V: GAF 55-60 Plan: return with next medical follow-up appointment. Check mood, pain, relaxation, activ ity, distraction, eating. Ask about headaches, fainting, surgery. Continue cognitive/behav ioral therapy. Total time spent with patient was approximately 45 minutes. LUKASZ CHARLES [facility] [address] [facility], [address]th [place] [address] documented in this encount er Plan of Treatment + + +--------+ + + | Name | Type | Priori | Associated Diagnoses | Order Schedule | | | | ty | | | + + +--------+ + + | [facility], | Procedures | Routin | Major Depressive | Ordered: 04/13/2008 | | OFFICE (92-97) | | e | Disorder, Recurrent | [...]
--- OUTSIDE RECORDS SUMMARY | ~2020-01-25 | XMS | Encounter Summary ---
Demographics + + + | Address | [address] | | | [place] [address] | + + + | Home Phone [...] Providers + +------+ + | Care Buckle Stapler Name | Role | Phone | + +------+ + PCP | Unavailable | + +------+ + Encounter Details +--------+ + + + + | Date | Type | Department | Care Team | Description | +--------+ + + + + | 01/02/ | Telephone | Digestive Health | Kenisha Melton, | | | 2005 | | [place] [address] | [facility] [address] | | | | | [address] | [address] | | | | | Mailcode: [id number] | [place], [place] | | | | | [facility] | [address] | | | | | [place], [place] | [phone] | | | | | [address] | | | | | | [phone] | | | +--------+ + + + [...]
--- OUTSIDE RECORDS SUMMARY | ~2020-01-25 | XMS | Encounter Summary ---
Demographics + + + | Address | [address] | | | [place] [address] | + + + | Home Phone [...] Providers + +------+ + | Care Gas Systems Worker Name | Role | Phone | + +------+ + | Pedrito Gutierrez MD | PCP | | + +------+ + Encounter Details +--------+---------+ + + + | Date | Type | Department | Care Team | Description | +--------+---------+ + + + | 11/24/ | Office | Comprehensive Pain | Nathalia Arora | Left Knee Pain; | | 2006 | Visit | [facility] | [address] | Spondylosis with | | | | [place] [address] | Clementina Winkler [place], | Myelopathy, Lumbar | | | | [address] Center for | [place] [address] | Region; Herniated | | | | Health and Healing, | | Lumbar | | | | | | Intervertebral Disc | | | | Floor [place], [place] | | L4-5; Fibromyalgia | | | | [address] | | syndrome 729.1 | | | | [phone] | | | +--------+---------+ + + + [...] Date: December 02, 2006 Patient: Belinda Meehan, [id number], 1960 I agree with the proposed Physical Therapy Treatment Plan. Provider: DELFINA MOLINA ANP Nathalia Garrett - 007 11:16 AM PDT Physical Therapy Medicare Progress Note Date: 11/27/2006 Belinda Meehan [id number]. 1960 Start of Care: 11/24/2006 Referring Provider: [...] the free margin and undersurface of the wastewater plant operator horn of the medial meniscus suspicious [...] gait using bilateral lofstrand crutches Patient's goals: mcfp: Ambulation with single based cane Treatment: Patient [...] ended: 1200 Nathalia Arora, Physical Therapist License #[id number] documented in this encoun ter Plan of Treatment + + +--------+ + + | Name | Type | Priori | Associated Diagnoses | Order Schedule | | | | ty | | | + + +--------+ + + | [facility] | Procedures | Routin | [...]
--- OUTSIDE RECORDS SUMMARY | ~2020-01-25 | XMS | Encounter Summary ---
Demographics + + + | Address | [address] | | | [place] [address] | + + + | Home Phone [...] as of this encounter Progress Notes Interface, Nursing Informatics Analyst In - 01/12/2005 6:32 AM PDT Referred From and Faxed To: Chirs Padgett M.D., General Surgery. Referred To: Outpatient [...] she was going to go to the [employer] food store and try to find [...] two months. Svetlana Maki R.D. SR/x35 P [id number] signed by Interface, Nursing Informatics Analyst In at 01/12/2005 6:32 AM [facility]ed in this encounter Plan of Treatment Not on filedocumented as of this encounter Visit Diagnoses Not on filedocumented in this encounter"
--- OUTSIDE RECORDS SUMMARY | ~2020-01-25 | XMS | Encounter Summary ---
Demographics + + + | Address | [address] | | | [place] [address] | + + + | Home Phone [...] Team Providers + +------+ + | Care Salon Assistant Name | Role | Phone | + +------+ + PCP | Unavailable | + +------+ + Encounter Details +--------+ + + + + | Date | Type | Department | Care Team | Description | +--------+ + + + + | 11/22/ | Results | | Other, Faculty | | | 2004 | Only | | [phone] | | +--------+ + + + + [...] + | Ordered by SYEDA MCKENZIE | RISU | | | DEPARTMENT OF | | | PATHOLOGY | + + + + + + + + | Performing | Address | City/State/Zipcode | Phone Number | | Organization | | | | + + + + + | [facility] DEPARTMENT OF | [address] | [place] [address] | | | PATHOLOGY | [address] | | | + + + + + | [place] DEPARTMENT OF | [address] | [place] [address] | | | PATHOLOGY | [address] [...] | + + + + + | [facility] DEPARTMENT | [address] | [place] [address] | | | PATHOLOGY | [address] | | | + + + + + | [facility] | [address] | [place] [address] | | | PATHOLOGY | [address] [...] [facility] | [address] | [place] [address] | | | PATHOLOGY | [address] | | | + + + + + | [facility] | [address] | [place] [address] | | | PATHOLOGY | [address] [...] DEPARTMENT OF | [address] | [place] [address] | | | PATHOLOGY | [address] | | | + + + + + | [facility] DEPARTMENT OF | [address] | [place] [address] | | | PATHOLOGY | [address] [...] DEPARTMENT OF | [address] | [place] [address] | | | PATHOLOGY | [address] | | | + + + + + | [facility] DEPARTMENT OF | [address] | [place] [address] | | | PATHOLOGY | [address] [...] | + + + + + | [facility] DEPARTMENT | [address] | [place] [address] | | | PATHOLOGY | [address] | | | + + + + + | [facility] DEPARTMENT OF | [address] | [place] [address] | | | PATHOLOGY | [address] | | | + + + + + documented in this encounter Visit Diagnoses Not on filedocumented in this encounter"
--- OUTSIDE RECORDS SUMMARY | ~2020-01-25 | XMS | Encounter Summary ---
Demographics + + + | Address | [address] | | | [place] [address] | + + + | Home Phone [...] Team Providers + +------+ + | Care Fretted Instrument Inspector Name | Role | Phone [...] 2007 | Visit | Rheumatology [address]PER[address]IN MACHINE | syndrome 729.1 | | | | [address] | | (Primary Dx) | | | | Mailcode: OPC5 | | | | | | Outpatient Clinic | | | | | | Building [place], | | | | | | [place] [address] | | | | | | [phone] | | | +--------+---------+ + + + [...] have much room. I wonder about small slitter cut off operator ior fossa. There is a disc bulge [...] 07/05/2007 56.0 15.0-75.0 Final Test performed by [facility]. VITAMIN D 25 HYDROXY (ng/mL) 07/03/2007 47 20-57 Final Comment: TEST INFORMATION: VITAMIN D, 25-HYDROXY This assay accurately quantifies the sum of vitamin D3, 25-hydroxy and vitamin D2, 25-hydroxy. Deficiency: Less than 20 ng/mL Insufficiency: 20-29 ng/mL Optimum Level: 30-80 ng/mL Possible Toxicity: Greater than 80 ng/mL Performed by [employer] [facility], [address] [place] [id number] [email or web address], Sincere Jordan MD - Lab. Director documented in this encount er Plan of Treatment Not on filedocumented as of this encounter Visit Diagnoses + + | Diagnosis | + + | Fibromyalgia syndrome 729.1 - Primary Mylagia and myositis, unspecified | + + documented in this encounter"
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
--- OUTSIDE RECORDS SUMMARY | ~2020-01-25 | XMS | Encounter Summary ---
Demographics + + + | Address | [address] | | | [place] [address] | + + + | Home Phone [...] Team Providers + +------+ + | Care Reflector Driller And Deburrer Name | Role | Phone | + +------+ + PCP | Unavailable | + +------+ + Encounter Details +--------+ + + + + | Date | Type | Department | Care Team | Description | +--------+ + + + + | 12/21/ | Results | Rheumatology | Caitlin Rivera, | | | 2003 | Only | [place] [address] | INDUSTRIAL MAINTENANCE MECHANIC | | | | | [address]ila [address] | | | | | | Mailcode: OPC5 | | | | | | Outpatient Clinic | | | | | | Building [facility] | | | | | | [place] [address] | | | | | | [phone] | | | +--------+ + + + [...] Iron and TIBC, Serum Test performed by [facility] | | | [facility]. | | + + + + + + + + | Performing | Address | City/State/Zipcode | Phone Number | | Organization | | | | + + + + + | [facility] | [address] | [place] [address] | | | LABORATORY | | | [...] + + + + + | [facility] | [address] | [place] [address] | | | LABORATORY | | | [...] | | | | | performed at [place] | | | | | | [place] [...] + + + + + | [facility] | [address] | [place] [address] | | | LABORATORY | | | | + + + + + documented in this encounter Visit Diagnoses Not on filedocumented in this encounter"
--- OUTSIDE RECORDS SUMMARY | ~2020-01-25 | XMS | Encounter Summary ---
Demographics + + + | Address | [address] | | | [place] [address] | + + + | Home Phone [...] +------+ + | Care Screw Machine Operator Swiss Type Name | Role | Phone | + [...] | Pain | Diagnoses | Miracle, | [place], | | | | Management | LBP (low | NIHARIKA Jean | Lukasz Rhodes, PhD | | | | | back pain) | [address] | [address] | | | | | DJD | [address] | Ave | | | | | (degenerativ | [place], [place] | [place] | | | | | e joint | [address] | [address] | | | | | disease) of | | Phone: | | | | | knee Knee | | [phone] | | | | | pain Major | | Fax: | | | | | depressive | | [phone] | | | | | disorder, | [...] 03/03/ | Office | Pain Center at [facility] | Lukasz Charles, | Major Depressive | | 2007 | Visit | [address] | PhD [address] | Disorder, Recurrent | | | | Center [facility] | [place], [place] | Episode, Moderate | | | | and Healing, | [address] | ([facility]); LBP (Low Back | | | | | [phone] | Pain); Bilateral | | | | Floor [place], [place] | | Knee Pain; | | | | [address] | | Fibromyalgia | | | | [phone] | | syndrome 729.1; | | | [...] a lot and is going to the [employer] regularly. She mentioned that she is taking [...] seems to be doing good self-care. Diagnosis: Mullins I: 1. (296.32) Major depressive disorder, recurrent, moderate. 2. (309.24) Adjustment disorder with anxiety. 3. (307.89) Chronic pain disorder associated with both psychological factors and a gene ral medical condition. Mullins II: Deferred Mullins III: abdominal pain, migraine headache, low back pain. Mullins IV: low finances Mullins V: GAF 55-60 Plan: return with next medical follow-up appointment. Check mood, pain, relaxation, activ ity, distraction, eating. Continue cognitive/behavioral therapy. Total time spent with patient was approximately 45 minutes. LUKASZ CHARLES PHD [facility] [address] [facility], 4th [place] [address] documented in this encount er Plan of Treatment + + +--------+ + + | Name | Type | Priori | Associated Diagnoses | Order Schedule | | | | ty | | | + + +--------+ + + | [facility], | Procedures | Routin | Major Depressive | Ordered: 03/03/2008 | | OFFICE (50-11) | | e | Disorder, Recurrent | [...]
--- OUTSIDE RECORDS SUMMARY | ~2020-01-25 | XMS | Encounter Summary ---
Demographics + + + | Address | [address] | | | [place] [address] | + + + | Home Phone [...] Providers + +------+ + | Care Surgical Asst Name | Role | Phone | [...] | at [place] | [facility] | | | | | [address] | [place] [address] | | | | | [address] | | | | | | [place], 2nd floor | | | | | | [place], [place] | | | | | | [address] | | | | | | [phone] | | | +--------+ + + + [...]
--- OUTSIDE RECORDS SUMMARY | ~2020-01-25 | XMS | Encounter Summary ---
Demographics + + + | Address | [address] | | | [place] [address] | + + + | Home Phone [...] Team Providers + +------+ + | Care Impregnating Machine Operator Name | Role | Phone [...] + + | 12/10/ | Telephone | [facility] | Alanis, | Lab Results | | 2017 | | MEDICINE [address] | MD [place] | | | | | [place], | [address] [facility] | | | | | [place] [address] | [place] [address] | | | | | [phone] | [phone] | | | | | | | [...] | | | | | [place] [address] | | | | | | [phone] | | | | | | | | +--------+---------+ + + + documented as of this encounter Visit Diagnoses Not on filedocumented in this encounter"
--- OUTSIDE RECORDS SUMMARY | ~2020-01-25 | XMS | Encounter Summary ---
Demographics + + + | Address | [address] | | | [place] [address] | + + + | Home Phone [...] Team Providers + +------+ + | Care Fibre Optics Jointer Name | Role | Phone | + [...] Pavilion | | | | | | [place], [place] | | | | | | [address] | | | | | | [phone] | | | +--------+ + + + [...]
--- OUTSIDE RECORDS SUMMARY | ~2020-01-25 | XMS | Encounter Summary ---
Demographics + + + | Address | [address] | | | [place] [address] | + + + | Home Phone [...] Team Providers + +------+ + | Care Motel Maid Name | Role | Phone | [...] | 09/06/ | Refill | [facility] | Alanis, | Medication Refill | | 2019 | | MEDICINE [address] | MD [place] | | | | | [place], | [address] | | | | | [place] [address] | [place] [address] | | | | | [phone] | [phone] | | | | | | | [...] | | | | | [place] [address] | | | | | | [phone] | | | | | | | | +--------+---------+ + + + documented as of this encounter Visit Diagnoses Not on filedocumented in this encounter"
--- OUTSIDE RECORDS SUMMARY | ~2020-01-25 | XMS | Encounter Summary ---
Demographics + + + | Address | [address] | | | [place] [address] | + + + | Home Phone [...] Providers + +------+ + | Care Search Director Name | Role | Phone | [...] [address] | | | | | | [facility] | | | | | | [place], [place] | | | | | | [address] | | | | | | [phone] | | | +--------+ + + + [...]
--- OUTSIDE RECORDS SUMMARY | ~2020-01-25 | XMS | Encounter Summary ---
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 Diagnosis: [place] I: 1. (296.32) Major depressive disorder, recurrent, moderate. 2. (309.24) Adjustment disorder with anxiety. 3. (307.89) Chronic pain disorder associated with both psychological factors and a gene ral medical condition. [place] II: Deferred [place] III: abdominal pain, migraine headache, low back pain. [place] IV: low finances [place] V: GAF 55-60 Plan: Return with next medical follow-up appointment. Check mood, knee surgery, pacing, relaxati on, activity, distraction. Continue cognitive/behavioral therapy. Discuss need for further sessions. Total time spent with patient was approximately 45 minutes. LUKASZ CHARLES PHD [facility] [address] [facility], 4th [place] [address] documented in this encount er Plan of [...]
--- OUTSIDE RECORDS SUMMARY | ~2020-01-25 | XMS | Encounter Summary ---
[...] Providers + +------+ + | Care Transit Operator Name | Role | Phone [...] | | | Metabolism | bypass | [address] | [address] | | | | | Hypovitamino | [address], | Ave | | | | | sis D [address] | [address] | [place], [place] | | | | | nutritional | [place], [place] | [address] | | | | | deficiency | [address] | Phone: | | | | | Other | Phone: | [phone] | | | | | protein-jose manuel | [phone] | Fax: | | | | | nick | Fax: | [phone] | | | | | malnutrition | [phone] | | | | | | Weight | | | | | | | gain | | | | | | | Procedures | | | | | | | CONSULT TO | | | | | | | ENDO | | | | | | | [address] | | | | | | | [address] | | | +--------+--------+ + + + [...] | | | | | | | [facility] | | | | | | | Health and | | | | | | | Healing, | | | | | | | Building 2 | | | | | | | [place], [place] | | | | | | | [address] | | | | | | | Phone: | | | | | | | [phone] | | | | | | | Fax: | | | | | | | [phone] | +--------+--------+ + + + + Encounter Details +--------+---------+ + + + | Date | Type | Department | Care Team | Description | +--------+---------+ + + + | 09/23/ | Office | Digestive Health | Patricia Banegas, | H/O gastric bypass | | 2013 | Visit | Center at [facility] [address] | EGYPTOLOGIST [address] | (Primary Dx); | | | | [address] | [facility] [address] | Hypovitaminosis D; | | | | for Health and | [place], [place] | B12 nutritional | | | | [facility], Building 2 | [address] | deficiency; Other | | | | [facility] [place] | [phone] | protein-calorie | | | | [address] | | malnutrition; Weight | | | | [phone] | | gain; Teeth decayed | +--------+---------+ [...] make an appt with me Calories approx. 6231-0564 per day when 3 mos or more out from surgery to maintain weight l oss. Calories may need to be adjusted up for individual needs. I recommend eating 5-6 times per day. Berg.Cardiio Protein 60-100+ gms per day Water: 64 oz per day, your urine should be light yellow. Please let up know if you would like a referral to see the Driver Sales. I would be happy to put in referrals to [facility], medical membership is $198 for 3 mos. If you are 12 mos or more out from surgery and would like referral for excess skin removal please let us know. Call us if you have any questions or concerns, or send [employer] message for non-urgent issue sYudy Banegas RN, [facility] Nurse Practitioner for Bariatric Surgery [facility] | [address] | [place], [place] | [address] | documented in this encounter Progress Notes [...] Hives Mainly in the legs Clindamycin Codeine Tygmnjz-Yakuatqryz-Efn-Caff Balance problems Fioricet W/Codeine (Mgksviycbt-Scewllgorj-Quk-Cod) Keflex (Cephalexin) Morphine IM ( only in [facility]) made gut pain worse 08/27/06: Trial [...] 80 mg by mouth once daily at [facility] Disp: , Rfl: levothyroxine 50 mcg Oral [...] replacement 08/2007 right knee Lumbar fusion 05/2008 L5-Y3tgqzaj with bone spur removals Appendectomy Cholecystectomy section [...] exercise, types of exercise, offered referral to [facility]. 2. Lacking teeth, pt states she [...] to POC and will call or send Onyu message if any issues. Start time 1325, end time 1353. I spent a total of 28 minutes face to face with this patie nt. Over 50% of visit was in counseling. ~ 2 Minutes of additional time spent reviewing chart prior to visit and documenting after t his visit. Patricia Banegas RN, [facility] Nurse Practitioner for Bariatric Surgery [facility] | [address] | [place], [place] | [address] | documented in this e ncounter Plan [...]
--- OUTSIDE RECORDS SUMMARY | ~2020-01-25 | XMS | Encounter Summary ---
Demographics + + + | Address | [address] | | | [place] [address] | + + + | Home Phone [...] Providers + +------+ + | Care Order Tracer Name | Role | Phone | [...] of this encounter Discharge Summaries Interface, Staff Submarine Warfare Officer In - 08/30/2005 2:07 AM PST [id number] GEOVANNI Barnes Admission Date: 07/24/2005 Discharge Date: [...] for an appointment. Joanna Ritchie M.D. / [id number] / [id number] / [id number] / Electronically signed by Chris Padgett 08-29-2005 03:28:23 PM documented i n this encounter Plan of Treatment Not on filedocumented as of this encounter Visit Diagnoses Not on filedocumented in this encounter"
--- OUTSIDE RECORDS SUMMARY | ~2020-01-25 | XMS | Encounter Summary ---
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 female [facility] Comprehensive Pain [...] reviewed. [facility] Brief Pain Inventory: Right Now: [...] Physical therapy: Two days per week in [place] knees and both legs, shoulders and back [...] social history. Pending 08/30/07 DR Cadet in [facility]: right knee arthroplasty. Urology evaluation for [...] Collection Time Resulting Agency 05/25/2007 4:06 PM [facility] DEPARTMENT OF RADIOLOGY Component Results MR [...] with any concerns or questions. DELFINA MOLINA [facility] Mail code CH 4P [facility] [address] [facility] [address] Ailyn Bello 08/13/19 08 8:52 [...]
--- OUTSIDE RECORDS SUMMARY | ~2020-01-25 | XMS | Encounter Summary ---
Demographics + + + | Address | [address] | | | [place] [address] | + + + | Home Phone [...] + +------+ + | Care Orthodontic Technician Assistant Name | Role | Phone | [...] as of this encounter Progress Notes Interface, Automatic Mold Sander In - 01/11/2005 6:26 PM PDTClinic Date: [...] bypass surgery. Dwaine Al M.D. LEDY / [id number] / [id number] / [id number] / Tdocumented in this encounter Plan of Treatment Not on filedocumented as of this encounter Visit Diagnoses Not on filedocumented in this encounter"
--- OUTSIDE RECORDS SUMMARY | ~2020-01-25 | XMS | Encounter Summary ---
Demographics + + + | Address | [address] | | | [place] [address] | + + + | Home Phone [...] Team Providers + +------+ + | Care Banking Services Clerk Name | Role | Phone | + +------+ + | Maria Esther Cintron MD | PCP | | + +------+ + Encounter Details +--------+ + + + + | Date | Type | Department | Care Team | Description | +--------+ + + + + | 12/22/ | Telephone | [facility] | Mirnada Lambert, | | | 2006 | | Center Outpatient | ANP | | | | | Therapy Center [address] | | | [address] | | | | | | Outpatient Therapy | | | | | | Center 2nd floor | | | | | | Mailcode: OP26 | | | | | | [place], [place] | | | | | | [address] | | | | | | [phone] | | | +--------+ + + + [...]
--- OUTSIDE RECORDS SUMMARY | ~2020-01-25 | XMS | Encounter Summary ---
Demographics + + + | Address | [address] | | | [place] [address] | + + + | Home Phone [...] Team Providers + +------+ + | Care Hematology Technologist Name | Role | Phone | [...] Refill Request | | 2008 | | [place] [address] | [address] | (Sucralfate) | | | | Bethanie Mailcode: CH4S | [facility] | | | | | [facility] | [place], [place] | | | | | and [place], | [address] | | | | | [facility] | [phone] | | | | | Floor [place] | | | | | | [address] | | | | | | [phone] | | | +--------+--------+ + + + [...]
--- OUTSIDE RECORDS SUMMARY | ~2020-01-25 | XMS | Encounter Summary ---
Demographics + + + | Address | [address] | | | [place] [address] | + + + | Home Phone [...] Providers + +------+ + | Care Mixer Foam Rubber Name | Role | Phone | [...] as of this encounter Progress Notes Interface, Shelf Stocker In - 01/11/2005 6:26 PM PDTClinic Date: [...] bypass surgery. Dwaine Al M.D. LEDY / [id number] / [id number] / [id number] / Tdocumented in this encounter Plan of Treatment Not on filedocumented as of this encounter Visit Diagnoses Not on filedocumented in this encounter"
--- OUTSIDE RECORDS SUMMARY | ~2020-01-25 | XMS | Clinical Summary ---
Demographics + + + | Address | [address] | | | [place] [address] | + + + | Home Phone [...] Team Providers + +------+ + | Care Radioisotope Production Operator Name | Role | Phone | + +------+ + | Sulaiman Carrera MD | PCP | | + +------+ + Source Comments MARK is fully live on both [facility] and [facility] InPatient.[facility] Allergies + + + [...] + + + + + + | Grhudmr-Kygoagwokb-L | | | 08/29/19 | Balance problems [...] in | | | | | | [facility]) | | | | | | [...] | imbalances, sleep apnea, neck pain, medication [id number] | + + + + + | [...] | B | | sent | | [place], [place] | | | | | | | | [address] | | + +--------+ +--------+ + +--------+ | SENIOR GAME DESIGNER MEDICAID | SENIOR GAME DESIGNER | xxxxxxxx | | | | Medica [...] | 1960 | [phone] | [place] [address] | | | bijan | | | 3 (Home) | | + +--------+ +--------+ + + | Belinda Meehan | Medica | Self | [birth year] | [address] | | | re | | 9 | [phone] | [place] [address] | | | Recurr | | | 3 (Home) | | | | ing | | | | | + +--------+ +--------+ + + Advance Directives + + + + + | Type | Date Recorded | Patient | Explanation | | | | Ed Case Manager | | + + + + + | Advance | 11/19/2004 12:00 | | ADVANCE DIRECTIVE | | Directives and | AM | | | | Living Will | | | | + + + + + | Power of | | | | | College Sports Coach | | | | + + + [...]
--- OUTSIDE RECORDS SUMMARY | ~2020-01-25 | XMS | Encounter Summary ---
Demographics + + + | Address | [address] | | | [place] [address] | + + + | Home Phone [...] Team Providers + +------+ + | Care Kids Club Attendant Name | Role | Phone | [...] | | | | L[address] Physician's | [place], [place] | | | | | [address] | [address] | | | | | [place], [place] | [phone] | | | | | [address] | | | | | | [phone] | | | +--------+ + + + [...] + + + | [facility] | [address] | [place] [address] | | | LABORATORY | | | [...] DEPARTMENT OF | [address] | [place] [address] | | | PATHOLOGY | [address] | | | + + + + + | [facility] | [address] | [place] [address] | | | PATHOLOGY | [address] | | | + + + + + documented in this encounter Visit Diagnoses Not on filedocumented in this encounter"
--- OUTSIDE RECORDS SUMMARY | ~2020-01-25 | XMS | Encounter Summary ---
Demographics + + + | Address | [address] | | | [place] [address] | + + + | Home Phone [...] Providers + +------+ + | Care Agricultural Specialist Name | Role | Phone | [...] + | 06/07/ | Refill | [facility] | Alanis, | Medication Refill | | 2017 | | MEDICINE [address] | MD [place] | | | | | [place], | [address] [facility] | | | | | [place] [address] | [place] [address] | | | | | [phone] | [phone] | | | | | | | [...] | | | | | [place] [address] | | | | | | [phone] | | | | | | | | +--------+---------+ + + + documented as of this encounter Visit Diagnoses Not on filedocumented in this encounter"
--- OUTSIDE RECORDS SUMMARY | ~2020-01-25 | XMS | Encounter Summary ---
Demographics + + + | Address | [address] | | | [place] [address] | + + + | Home Phone [...] Providers + +------+ + | Care Advanced Practice Professional Name | Role | Phone | [...] of this encounter Progress Notes Interface, Correctional Program Officer In - 01/13/2005 9:03 AM PDT [id number] GEOVANNI Barnes Clinic Date: 01/02/2005 Clinic: Endocrinology [...] months. Beto Meeks M.D. PD / HS [id number] / [id number] / [id number] / [id number] cc: Chris Padgett M.D. documented i n this encounter Plan of Treatment Not on filedocumented as of this encounter Visit Diagnoses Not on filedocumented in this encounter"
--- OUTSIDE RECORDS SUMMARY | ~2020-01-25 | XMS | Encounter Summary ---
Demographics + + + | Address | [address] | | | [place] [address] | + + + | Home Phone [...] Providers + +------+ + | Care Hydraulic Jack Operator Name | Role | Phone [...] + | 02/03/ | Refill | [facility] | Alanis, | Medication Refill | | 2017 | | MEDICINE [address] | MD [place] | | | | | [place], | [address] [facility] | | | | | [place] [address] | [place] [address] | | | | | [phone] | [phone] | | | | | | | [...] | | | | | [place] [address] | | | | | | [phone] | | | | | | | | +--------+---------+ + + + documented as of this encounter Visit Diagnoses Not on filedocumented in this encounter"
--- OUTSIDE RECORDS SUMMARY | ~2020-01-25 | XMS | Encounter Summary ---
[...] Providers + +------+ + | Care Patient Scheduling Coordinator Name | Role | Phone | [...] + + | 12/20/ | Office | [facility] | Ulysses Genao MD | Meniere's disease of | | 2019 | Visit | OTOLARYNGOLOGY [address] | [address] | right ear (Primary | | | | [address] | [address] [place] | Dx); Benign | | | | [place] | [place] [address] | paroxysmal | | | | [address] | [phone] | positional vertigo, | | | | [phone] | | unspecified | | | | [...] tympanog ainsley were A tympanograms. Her speech reception manager threshold is 30 dB in the right [...] sched uled for a Tayler maneuver in [place]. Extended time was spent with the patient.Electronic [...] [place] | | | | | | [place] [address] | | | | | | [phone] | | | | | | | | +--------+---------+ + + + documented as of this encounter Visit Diagnoses + + | Diagnosis | + + | Meniere's disease of right ear - Primary Meniere's disease, unspecified | + + | Benign paroxysmal positional vertigo, unspecified laterality | + + documented in this encounter
--- OUTSIDE RECORDS SUMMARY | ~2020-01-25 | XMS | Encounter Summary ---
Demographics + + + | Address | [address] | | | [place] [address] | + + + | Home Phone [...] + +------+ + | Care Sound Effects Manager Name | Role | Phone | [...] | | | | | hemorrhoid | [place], [place] | [address] [facility] | | | | | Rectal pain | [address] | [facility] | | | | | Procedures | | Rd [place], | | | | | CONSULT TO | | [place] | | | | | [place] | | [address] | | | | | SURGERY | | Phone: | | | | | | | [phone] | | | | | | | Fax: | | | | | | | [phone] | +--------+--------+ + + + + Encounter Details +--------+ + + + + | Date | Type | Department | Care Team | Description | +--------+ + + + + | 08/10/ | Pipe Manufacture Supervisor | [facility] | Nuris Cardenas, ANP | Internal Hemorrhoid; | | 2008 | | [place] [address] | | Rectal Pain | | | | [address] | | | | | | Mailcode: [id number] | | | | | | [facility] | | | | | | [place], [place] | | | | | | [address] | | | | | | [phone] | | | +--------+ + + + [...]
--- OUTSIDE RECORDS SUMMARY | ~2020-01-25 | XMS | Encounter Summary ---
Demographics + + + | Address | [address] | | | [place] [address] | + + + | Home Phone [...] Providers + +------+ + | Care Final Assembly And Packing Supervisor Name | Role | Phone | [...] | | | [facility] | [place], [place] | | | | | [address] | [address] | | | | | [address] | [phone] | | | | | Physician's | | | | | | Pavilion, 1st floor | | | | | | [place], [place] | | | | | | [address] | | | | | | [phone] | | | +--------+ + + + [...]
--- OUTSIDE RECORDS SUMMARY | ~2020-01-25 | XMS | Encounter Summary ---
Demographics + + + | Address | [address] | | | [place] [address] | + + + | Home Phone [...] Providers + +------+ + | Care Fire Management Specialist Name | Role | Phone [...] of this encounter Progress Notes Interface, Rn Chronic In - 09/13/2005 2:06 AM PST [id number] GEOVANNI SKELTON [facility] Date: 07/03/2005 Clinic: [...] which are pending through the laboratory in [place]. Allergies: PENICILLIN, CODEINE, KEFLEX, SULFA, CIPRO, AND [...] which were done several days ago in [place]. Beto Meeks M.D. PD / HS [id number] / [id number] / [id number] / [id number] cc: Chris Padgett M.D. [facility] Electronically signed by Beto Meeks 09-12-2005 02:23:07 AM documented i n this encounter Plan of Treatment Not on filedocumented as of this encounter Visit Diagnoses Not on filedocumented in this encounter"
--- OUTSIDE RECORDS SUMMARY | ~2020-01-25 | XMS | Encounter Summary ---
Demographics + + + | Address | [address] | | | [place] [address] | + + + | Home Phone [...] Team Providers + +------+ + | Care Bull Driver Name | Role | Phone | [...] | | Essential | | | | [place], [place] | | hypertension 401.9; | | | | [address] | | Type II or | | | | [phone] | | unspecified type | | | [...] | | | LABORATORY | | | [place] | | | SERVICES, | | | [...] | + + + + + | [facility] | [address] | [place] [address] | | | SERVICES, CORE | [address] [...] + + + + + | [facility] | [address] | [place] [address] | | | SERVICES, CORE | [address] [...] | | If you are | | [place] | | | | screening for diabetes: [...] + | [facility] | [address] | [place] [address] | | | [place] | | | [...] [facility] | [address] | [place] [address] | | | SERVICES, SPECIAL | [address] [...] + + + | [facility] | [address] | [place] [address] | | | SERVICES, CORE | [address] [...] [facility] | [address] | [place] [address] | | | SERVICES, SPECIAL | [address] [...] by | | | | | | [employer] | | | | | | Abdiaziz Morales, [facility] | | | | | | [address] | | | | | | [phone].[employer]. | | | | | | Get [...] [facility] | [address] | [place], [place] | | | [facility] | | [address] | | + + + + + [...] | + + + + + | [facility] | [address] | [place] [address] | | | SERVICES, SPECIAL | [address] [...] + | [facility] | [address] | [place] [address] | | | [place] | | | | + + + [...]
--- OUTSIDE RECORDS SUMMARY | ~2020-01-25 | XMS | Encounter Summary ---
Demographics + + + | Address | [address] | | | [place] [address] | + + + | Home Phone [...] [id number] | | | | | | [place], [place] | | | | | | [address] | | | | | | [phone] | | | +--------+ + + + [...]
--- OUTSIDE RECORDS SUMMARY | ~2020-01-25 | XMS | Encounter Summary ---
Demographics + + + | Address | [address] | | | [place] [address] | + + + | Home Phone [...] Providers + +------+ + | Care Radiologic Technologist Chief Name | Role | Phone [...] [facility] | [place], [place] | | | | | and [place], | [address] | | | | | [facility] | [phone] | | | | | [place], [place] | | | | | | [address] | | | | | | [phone] | | | +--------+ + + + [...]
--- OUTSIDE RECORDS SUMMARY | ~2020-01-25 | XMS | Encounter Summary ---
Demographics + + + | Address | [address] | | | [place] [address] | + + + | Home Phone [...] Providers + +------+ + | Care School Bus Monitor Name | Role | Phone | [...] + + | 03/19/ | Telephone | [facility] Division of | Carlos Arreola, | Erroneous Encounter | | 2005 | | Gastroenterology/Hep | [address] | - Disregard (ERROR) | | | | atology [address] | [address] | | | | | [address] | [place] [address] | | | | | Mailcode: [id number] | [phone] | | | | | [facility] | | | | | | [address] | | | | | | [place], [place] | | | | | | [address] | | | | | | [phone] | | | +--------+ + + + [...]
--- OUTSIDE RECORDS SUMMARY | ~2020-01-25 | XMS | Encounter Summary ---
Demographics + + + | Address | [address] | | | [place] [address] | + + + | Home Phone [...] Providers + +------+ + | Care Office Support Associate Name | Role | Phone [...] | | Center at [facility] [address] | BUSINESS TRANSFORMATION ANALYST [address] | | | | | [address] [place] | [facility] [address] | | | | | for Health and | [place], [place] | | | | | [place] [address] | [address] | | | | | [place], [place] | [phone] | | | | | [address] | | | | | | [phone] | | | +--------+ + + + [...]
--- OUTSIDE RECORDS SUMMARY | ~2020-01-25 | XMS | Encounter Summary ---
Demographics + + + | Address | [address] | | | [place] [address] | + + + | Home Phone [...] Providers + +------+ + | Care Hospice Rn Name | Role | Phone | [...] | | | Ave Mailcode: CH4S | [facility] | | | | | [facility] | [place], [place] | | | | | and Healing, | [address] | | | | | [facility] | [phone] | | | | | Floor [place], [place] | | | | | | [address] | | | | | | [phone] | | | +--------+ + + + [...]
--- OUTSIDE RECORDS SUMMARY | ~2020-01-25 | XMS | Encounter Summary ---
Demographics + + + | Address | [address] | | | [place] [address] | + + + | Home Phone [...] | | | | Clinical Nutrition | [place], [place] | | | | | [address] | [address] | | | | | Loop Mailcode: OPC5 | [phone] | | | | | Outpatient Clinic | | | | | | [facility] | | | | | | [place] [address] | | | | | | [phone] | | | +--------+ + + + [...] + + + + + | [facility] DEPARTMENT OF | [address] | [place] [address] | | | PATHOLOGY | [address] | | | + + + + + | [facility] DEPARTMENT OF | [address] | [place] [address] | | | PATHOLOGY | [address] [...] [facility] | [address] | [place] [address] | | | PATHOLOGY | [address] | | | + + + + + | [facility] | [address] | [place] [address] | | | PATHOLOGY | [address] | | | + + + + + documented in this encounter Visit Diagnoses Not on filedocumented in this encounter"
--- OUTSIDE RECORDS SUMMARY | ~2020-01-25 | XMS | Encounter Summary ---
Demographics + + + | Address | [address] | | | [place] [address] | + + + | Home Phone [...] Providers + +------+ + | Care Events Assistant Name | Role | Phone | [...] + + | 03/10/ | Telephone | [facility] | Alanis, | Grief/ Loss | | 2019 | | MEDICINE [address] | MD Petrona | | | | | [place], | [address] | | | | | [place] [address] | [place] [address] | | | | | [phone] | | | | | | | [...] | | | | | [place] [address] | | | | | | [phone] | | | | | | | | +--------+---------+ + + + documented as of this encounter Visit Diagnoses Not on filedocumented in this encounter"
--- OUTSIDE RECORDS SUMMARY | ~2020-01-25 | XMS | Encounter Summary ---
Demographics + + + | Address | [address] | | | [place] [address] | + + + | Home Phone [...] Providers + +------+ + | Care Safety Investigator/Cause Analyst Name | Role | Phone | [...] | - Disregard | | | | [facility] | | | | | | [address] | | | | | | [facility] | | | | | | and Healing, | | | | | | Building , | | | | | | Floor [place], [place] | | | | | | [address] | | | | | | [phone] | | | +--------+ + + + [...]
--- OUTSIDE RECORDS SUMMARY | ~2020-01-25 | XMS | Encounter Summary ---
Demographics + + + | Address | [address] | | | [place] [address] | + + + | Home Phone [...] Providers + +------+ + | Care Claims Adjuster Name | Role | Phone [...] + | 11/22/ | Refill | [facility] | Alanis, | Medication Refill | | 2018 | | MEDICINE [address] | MD Petrona | | | | | [place], | [address] [facility] | | | | | [place] [address] | [place] [address] | | | | | [phone] | [phone] | | | | | | | [...] | | | | | [place] [address] | | | | | | [phone] | | | | | | | | +--------+---------+ + + + documented as of this encounter Visit Diagnoses Not on filedocumented in this encounter"
--- OUTSIDE RECORDS SUMMARY | ~2020-01-25 | XMS | Encounter Summary ---
Demographics + + + | Address | [address] | | | [place] [address] | + + + | Home Phone [...] + +------+ + | Care Supply Chain Coordinator Name | Role | Phone | [...] as of this encounter Discharge Summaries Interface, Occ Med Physician In - 01/12/2005 10:09 AM PDT [id number] GEOVANNI Barnes Admission Date: 12/06/2004 Discharge Date: [...] her incision looked clear, dry, and intact. [place] were in place. She had some moderate [...] Sree Carrillo M.D. Chris Padgett M.D. / [id number] / [id number] / [id number] / [id number] Electronically signed by Chris Padgett 12-31-2004 03:03:21 PM documented i n this encounter Plan of Treatment Not on filedocumented as of this encounter Visit Diagnoses Not on filedocumented in this encounter"
--- OUTSIDE RECORDS SUMMARY | ~2020-01-25 | XMS | Encounter Summary ---
Demographics + + + | Address | [address] | | | [place] [address] | + + + | Home Phone [...] Team Providers + +------+ + | Care Optician Apprentice Name | Role | Phone [...] | | | Metabolism | bypass | [address] | [address] | | | | | Hypovitamino | [address], | Ave | | | | | sis D B12 | [address] | [place], [place] | | | | | nutritional | [place] | [address] | | | | | deficiency | [address] | Phone: | | | | | Other | Phone: | [phone] | | | | | protein-jose manuel | [phone] | Fax: | | | | | nick | Fax: | [phone] | | | | | malnutrition | [phone] | | | | | | Weight | | | | | | | gain | | | | | | | Procedures | | | | | | | CONSULT TO | | | | | | | ENDO | | | | | | | [address] | | | +--------+--------+ + + + [...] | | | [facility] | [place], [place] | (Primary Dx); | | | | [address] | [address] | Metabolic syndrome X | | | | [address] | [phone] | 250.80; Essential | | | | [facility] | | hypertension 401.9; | | | | Physician's | | Unstable balance | | | | Pavilion [place], | | | | | | [place] [address] | | | | | | [phone] | | | +--------+---------+ + + + [...] Hives Mainly in the legs Clindamycin Codeine Uxrmrdp-Uewilvlpyl-Mwr-Caff Balance problems Fioricet W/Codeine (Ofwrrruczi-Kjyntgwflf-Cos-Cod) Keflex (Cephalexin) Morphine IM ( only in [facility]) made gut pain worse 08/27/06: Trial [...] U/L 41 ANION GAP 8 VITAMIN B12, [id number] pg/ml >2000 (H) HEMOGLOBIN A1C <=5.6 % [...] SERUM 15.0-85.0 pg/ml 222.9 (H) VITAMIN B12, [id number] pg/ml > 2000 HEMOGLOBIN A1C <=5.6 % [...] home vi a a long drive to [place]. 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 This c an be most easily accomplished [...] + +--------+ + + + | CO COLLECTION | Routin | 08/09/2013 | IGT [...] MARQUAM | [address] | [place], [place] | | | [facility] | [address] | [address] | | | TESTS | | | [...] | [address] | [place], [place] | | | [facility] | [address] | [address] | | | TESTS | | | [...]
--- OUTSIDE RECORDS SUMMARY | ~2020-01-25 | XMS | Encounter Summary ---
Demographics + + + | Address | [address] | | | [place] [address] | + + + | Home Phone [...] Providers + +------+ + | Care Housing Management Officer Name | Role | Phone [...] | 2006 | Visit | Center at [facility] | [address] | Myelopathy, Lumbar | | | | [address] [place], | Region; Neck Pain; | | | | [facility] | [place] [address] | Herniated Lumbar | | | | Health and Healing, | | Intervertebral Disc | | | | Building | | L4-5; Fibromyalgia | | | | Floor [place], [place] | | syndrome 729.1; NO | | | | [address] | | DIAGNOSIS RECEIVED | | | | [phone] | | | +--------+---------+ + + + [...] Date: December 02, 2006 Patient: Belinda Meehan, [id number], 1960 I agree with the proposed Physical Therapy Treatment Plan. Provider: DELFINA BUNDY elfina Molina - 007 11:31 AM PDTThis encounter was opened in error. Please disregard this note. athalia Arora - 007 12:26 PM PDT PROGRESS NOTE: Physical Therapy Medicare Progress Note Date: 10/07/2006 Belinda Meehan [id number]. 1960 Start of Care: 06/23/2006 Referring Provider: [...] dial meniscal tear. Patient continues walking at [place] on a daily basis, (when she is no t in [place] for appts), 30-40 minutes, and her HEP [...]
--- OUTSIDE RECORDS SUMMARY | ~2020-01-25 | XMS | Encounter Summary ---
Demographics + + + | Address | [address] | | | [place] [address] | + + + | Home Phone [...] Providers + +------+ + | Care Pearl Diver Name | Role | Phone | + [...] + + | 01/04/ | Telephone | [facility] [place] | Ulysses Genao MD | Other | | 2017 | | OTOLARYNGOLOGY [address] | [address] | | | | | [address] | [address] [facility] | | | | | [place], [place] | [place] [address] | | | | | [address] | [phone] | | | | | [phone] | | | +--------+ + + + [...] Miscellaneous Notes Telephone Encounter - Louise Randall, Steelscope Operator - 01/04/2018 2:45 PM PDTReferr al has been approved and have been faxed to I[facility] at [facility] elephone Encounter - Louise Carlton Steelscope Operator - 01/04/2018 9:58 AM PDTWaiting for referral to be approved by insurance and then I will send the order es. elephone Encounter - Ly Li - 018 8:58 AM PDT Vivi called wanting to know where the orders are for Belinda Shefali for Vertigo? Please fax orders to : [phone] Fax document ed in this encounter Plan [...] | | | | | [place] [address] | | | | | | [phone] | | | | | | | | +--------+---------+ + + + documented as of this encounter Visit Diagnoses Not on filedocumented in this encounter"
--- OUTSIDE RECORDS SUMMARY | ~2020-01-25 | XMS | Encounter Summary ---
Demographics + + + | Address | [address] | | | [place] [address] | + + + | Home Phone [...] Providers + +------+ + | Care Pediatric Care Coordinator Name | Role | Phone [...] as of this encounter Progress Notes Interface, Flame Burner In - 01/03/2006 3:02 AM [facility] [place] [address] [address], [place] [address] or November 01, 2002 Pedrito Gutierrez M.D. [facility] [address] [place] [address] RE: BELINDA MEEHAN MR #: [id number] Dear Dr. Gutierrez: Belinda was seen in [...] Sincerely, Maurilio Estrada M.D. KRIS / SHARIF [id number] / [id number] / [id number] / Tdocumented in this encounter Plan of Treatment Not on filedocumented as of this encounter Visit Diagnoses Not on filedocumented in this encounter"
--- OUTSIDE RECORDS SUMMARY | ~2020-01-25 | XMS | Encounter Summary ---
Demographics + + + | Address | [address] | | | [place] [address] | + + + | Home Phone [...] Providers + +------+ + | Care Assistant Kitchen Manager Name | Role | Phone | [...] + + | 04/08/ | Office | [facility] | Alanis, | Pressure injury of | | 2018 | Visit | MEDICINE [address] | MD John | right buttock, stage | | | | [address] [place], | [address] [facility] | 1 (Primary Dx); [place] | | | | [place] [address] | [place] [address] | (obstructive sleep | | | | [phone] | [phone] | apnea); Lower leg | | | [...] 1,000 mcg 1,000 mcg Intramuscular Q30 Days [facility] steve-Russell Thapa MD 1,000 mcg at 04/08/18 1131 ALLERGIES Allergies Allergen Reactions Lactose Codeine Sulfate Nausea Only Levofloxacin Hives, Itching and Rash Amitriptyline Hcl Other (See Comments) Confused and questionable for seizures Nwlrcdmazd-Bhpb-Dflbeyao Hives and Rash Cephalexin Hives Ciprofloxacin Hives [...] like to check with a provider in [place] which is closer to her home for [...] Note: Parts of this documentwere created using NephroPlus speech recognition software. As a r esult, [...] John | | | | | | [facility] [address] | | | | | | [place] [address] | | | | | | [phone] | | | | | | | [...] | | | | First dose on [facility] 10/15/17 at 1215 | | [...]
--- OUTSIDE RECORDS SUMMARY | ~2020-01-25 | XMS | Encounter Summary ---
Demographics + + + | Address | [address] | | | [place] [address] | + + + | Home Phone [...] Required | | | i, | [address] | | | | | osteoporosis | Sulaim[place]Iv[address] | [place], | | | | | without | , MD [address] | [place] [address] | | | | | current | [address] | Phone: | | | | | pathological | [place], | [phone] | | | | | fracture | [place] | Fax: | | | | | | [address] | [phone] | | | | | | Phone: | | | | | | | [phone] | | | | | | | Fax: | | | | | | | [phone] | | +--------+ + + + + [...] Required | | | i, | [address] | | | | | osteoporosis | [place] | [place], | | | | | without | , MD [address] | [place] [address] | | | | | current | [address] | Phone: | | | | | pathological | [place], | [phone] | | | | | fracture | [place] | Fax: | | | | | | [address] | [phone] | | | | | | Phone: | | | | | | | [phone] | | | | | | | Fax: | | | | | | | [phone] | | +--------+ + + + + + Encounter Details +--------+ + + + + | Date | Type | Department | Care Team | Description | +--------+ + + + + | 10/14/ | Hospital | [facility] | EmmyAlberto, | Age-related | | 2019 | Encounter | MED CTR OP INFUSION | MD [place] | osteoporosis without | | | | [address] | [address] [facility] | current | | | | [place] | [place] [address] | pathological | | | | [address] | [phone] | fracture (Primary | | | | [phone] | | Dx) | +--------+ + + [...] | | | | | [place] [address] | | | | | | [phone] | | | | | | | [...]
--- OUTSIDE RECORDS SUMMARY | ~2020-01-25 | XMS | Encounter Summary ---
Demographics + + + | Address | [address] | | | [place] [address] | + + + | Home Phone [...] Providers + +------+ + | Care Commercial Account Executive Name | Role | Phone [...] [facility] | | | | | [facility] | [place], [place] | | | | | and Healing, | [address] | | | | | [place] [address] [facility] | [phone] | | | | | Floor [place], [place] | | | | | | [address] | | | | | | [phone] | | | +--------+ + + + [...]
--- OUTSIDE RECORDS SUMMARY | ~2020-01-25 | XMS | Encounter Summary ---
Demographics + + + | Address | [address] | | | [place] [address] | + + + | Home Phone [...] Providers + +------+ + | Care Electrical Journeyman Name | Role | Phone | [...] | | | | [address] Physician's | [place], [place] | | | | | [address] | [address] | | | | | [place], [place] | [phone] | | | | | [address] | | | | | | [phone] | | | +--------+ + + + [...]
--- OUTSIDE RECORDS SUMMARY | ~2020-01-25 | XMS | Encounter Summary ---
Demographics + + + | Address | [address] | | | [place] [address] | + + + | Home Phone [...] | | | Metabolism | bypass | [address] | [address] | | | | | Hypovitamino | [address], | Ave | | | | | sis D B12 | [address] | [place], [place] | | | | | nutritional | [place], [place] | [address] | | | | | deficiency | [address] | Phone: | | | | | Other | Phone: | [phone] | | | | | protein-jose manuel | [phone] | Fax: | | | | | nick | Fax: | [phone] | | | | | malnutrition | [phone] | | | | | | Weight | | | | | | | gain | | | | | | | Procedures | | | | | | | CONSULT TO | | | | | | | ENDO | | | | | | | [address] | | | | | | | [address] | | | +--------+--------+ + + + [...] | | | | | | | [facility] | | | | | | | Health and | | | | | | | Healing, | | | | | | | Building [address] | | | | | | | [place], [place] | | | | | | | [address] | | | | | | | Phone: | | | | | | | [phone] | | | | | | | Fax: | | | | | | | [phone] | +--------+--------+ + + + + Encounter Details +--------+---------+ + + + | Date | Type | Department | Care Team | Description | +--------+---------+ + + + | 09/23/ | Office | Digestive Health | Patricia Banegas, | H/O gastric bypass | | 2013 | Visit | Center at [facility] [address] | 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 4063-8249 per day when 3 mos or more out from surgery to maintain weight l oss. Calories may need to be adjusted up for individual needs. I recommend eating 5-6 times per day. [email or web address] Group Protein 60-100+ gms per day Water: 64 oz per day, your urine should be light yellow. Please let up know if you would like a referral to see the Software Support Specialist. I would be happy to put in referrals to [facility], medical membership is $198 for 3 mos. If you are 12 mos or more out from surgery and would like referral for excess skin removal please let us know. Call us if you have any questions or concerns, or send [employer] message for non-urgent issue sYudy Banegas RN, [facility] Nurse Practitioner for Bariatric Surgery [facility] | [address] | [place], [place] | [address] | documented in this encounter Progress Notes [...] Hives Mainly in the legs Clindamycin Codeine Lfghgen-Pssamjykvm-Nor-Caff Balance problems Fioricet W/Codeine (Pyfglsdyui-Ahjtrcheuu-Jhx-Cod) Keflex (Cephalexin) Morphine IM ( only in [...] 80 mg by mouth once daily at [facility] Disp: , Rfl: levothyroxine 50 mcg [...] replacement 08/2007 right knee Lumbar fusion 05/2008 L5-O4aucean with bone spur removals Appendectomy Cholecystectomy section [...] exercise, types of exercise, offered referral to [facility]. 2. Lacking teeth, pt states she [...] to POC and will call or send Gemvara message if any issues. Start time 1325, end time 1353. I spent a total of 28 minutes face to face with this patie nt. Over 50% of visit was in counseling. ~ 2 Minutes of additional time spent reviewing chart prior to visit and documenting after t his visit. Patricia Banegas RN, [facility] Nurse Practitioner for Bariatric Surgery [facility] [place] | [address] | [place], [place] | [address] | documented in this e ncounter Plan [...]
--- OUTSIDE RECORDS SUMMARY | ~2020-01-25 | XMS | Encounter Summary ---
Demographics + + + | Address | [address] | | | [place] [address] | + + + | Home Phone [...] Providers + +------+ + | Care Blow Down Operator Name | Role | Phone | [...] this encounter Progress Notes Interface, Senior Systems Analyst In - 06/23/2006 2:36 AM PST [id number] GEOVANNI SKELTON Molly [id number] Clinic Date: 05/05/2006 Clinic: Endocrinology Subjective: Belidna Meehan is a 46-year-old woman who underwent [...] replacement. Beto Meeks M.D. PD / HS [id number] / [id number] / [id number] / cc: Pedrito Guiterrez M.D. [address] [place] [address] Joanna Arshad M.D. [facility] Electronically signed by Beto Meeks 06-20-2006 11:48:11 PM documented i n this encounter Plan of Treatment Not on filedocumented as of this encounter Visit Diagnoses Not on filedocumented in this encounter"
--- OUTSIDE RECORDS SUMMARY | ~2020-01-25 | XMS | Encounter Summary ---
Demographics + + + | Address | [address] | | | [place] [address] | + + + | Home Phone [...] Providers + +------+ + | Care Office Clinician Name | Role | Phone | [...] [address] | | | | | | [place], [place] | | | | | | [address] | | | | | | [phone] | | | +--------+--------+ + + + [...]
--- OUTSIDE RECORDS SUMMARY | ~2020-01-25 | XMS | Encounter Summary ---
Demographics + + + | Address | [address] | | | [place] [address] | + + + | Home Phone [...] +------+ + | Care Real Estate Sales Associate Name | Role | Phone [...] + | 04/25/ | Refill | [facility] | Alanis, | Medication Refill | | 2016 | | MEDICINE [address] | MD [place] | | | | | [place], | [address] [facility] | | | | | [place] [address] | [place] [address] | | | | | [phone] | [phone] | | | | | | | [...] supplies. [facility]ronically signed by Tamara Elliott RN a [...] | | | | | [place] [address] | | | | | | [phone] | | | | | | | | +--------+---------+ + + + documented as of this encounter Visit Diagnoses Not on filedocumented in this encounter"
--- OUTSIDE RECORDS SUMMARY | ~2020-01-25 | XMS | Encounter Summary ---
Demographics + + + | Address | [address] | | | [place] [address] | + + + | Home Phone [...] Providers + +------+ + | Care Shell Trim Tool Setter Name | Role | Phone [...] Pavilion | | | | | | [place], [place] | | | | | | [address] | | | | | | [phone] | | | +--------+ + + + [...]
--- OUTSIDE RECORDS SUMMARY | ~2020-01-25 | XMS | Encounter Summary ---
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 Schedule Neurology evaluation [facility] order placed for Dr. Merari Mittal [...] car. She has not been seeing the [facility] PT , await ing the surgical plan for her left knee. MRI done, ordered by Dr. Ibarra who referred to Dr. Angel Morales for surgical opinion, scheduled for 10/28/06. She continues to see Dr. Alin adames at [facility] and reports benefit and would [...] Collection Time Resulting Agency 10/05/2006 9:20 AM [facility] DEPARTMENT OF RADIOLOGY Component Results MR [...] the free margin and undersurface of the account installer horn of the medial meniscus suspicious for [...] the left knee 3. Schedule Neurology evaluation [facility] order placed for Dr. Merari Mittal MD 4. Follow up 11/11/06 to reivew pain management 5. Cntinue with PT and psychology as scheduled DELFINA MOLINA [facility] Mail code CH 4P [facility] and [address] [address] iValencia macias - 10/23 12:47 [...]
--- OUTSIDE RECORDS SUMMARY | ~2020-01-25 | XMS | Encounter Summary ---
Demographics + + + | Address | [address] | | | [place] [address] | + + + | Home Phone [...] Providers + +------+ + | Care Corn Husker Name | Role | Phone | + [...] | | | | | | [place], | | | | | | | [place] | | | | | | | [address] | | | | | | | Phone: | | | | | | | [phone] | | | | | | | Fax: | | | | | | | [phone] | +--------+--------+ + + + + Encounter Details +--------+---------+ + + + | Date | Type | Department | Care Team | Description | +--------+---------+ + + + | 11/10/ | Office | Digestive Health | Chris Padgett, | Status Post | | 2007 | Visit | [place] [address] | [address] | Bariatric Surgery; | | | | Ave Mailcode: [address] | [address] | Abdominal Pain, | | | | Center [facility] | [place], [place] | Other Specified Site | | | | and Healing, | [address] | | | | | Building | [phone] | | | | | Floor [place], [place] | | | | | | [address] | | | | | | [phone] | | | +--------+---------+ + + + [...]
--- OUTSIDE RECORDS SUMMARY | ~2020-01-25 | XMS | Encounter Summary ---
Demographics + + + | Address | [address] | | | [place] [address] | + + + | Home Phone [...] Providers + +------+ + | Care Production Mechanic Tin Cans Name | Role | Phone | + +------+ + | Pedrito Gutierrez MD | PCP | | + +------+ + Encounter Details +--------+ + + + + | Date | Type | Department | Care Team | Description | +--------+ + + + + | 07/30/ | Office | [facility] [address] | Clinic, | Progress Note | | 2006 | Visit-Trans | [facility] | Endocrinology | | | | kurt | Sacha | | | | | | [facility], | | | | | | 7th floor | | | | | | [place], [place] | | | | | | [address] | | | | | | [phone] | | | +--------+ + + + [...] as of this encounter Progress Notes Interface, Craniologist In - 09/16/2006 7:22 AM PDT [id number] GEOVANNI [place] [id number] Clinic Date: 07/30/2006 Clinic: Endocrinology Subjective: Belinda [...] year. Beto Meeks M.D. PD / HS [id number] / [id number] / [id number] / [id number] cc: Joanna Arshad M.D. Jonathan Hitzman, M.D. [address] [facility] [place] [address] Electronically signed by Beto Meeks 09-15-2006 11:40:17 PM documented in this encounter Plan of Treatment Not on filedocumented as of this encounter Visit Diagnoses Not on filedocumented in this encounter"
--- OUTSIDE RECORDS SUMMARY | ~2020-01-25 | XMS | Encounter Summary ---
Demographics + + + | Address | [address] | | | [place] [address] | + + + | Home Phone [...] Providers + +------+ + | Care Forest Technology Professor Name | Role | Phone | [...] | 2006 | Visit | Center at [facility] | [address] | Pain; Cervical Pain; | | | | [address] [place], | Pain in Joint, Site | | | | [address] [facility] | [place] [address] | Unspecified; | | | | Health and Healing, | | Depression | | | | Building | | | | | | Floor [place], [place] | | | | | | [address] | | | | | | [phone] | | | +--------+---------+ + + + [...] EVALUATION NOTE Date: 06/23/2006 Name: Belinda Meehan [id number] y.o. female Start of Care: 06/23/2005 [...] the last few gregory hs. Handedness: right [place]: [place] Chief Complaint: Headaches and cervical pain, bilateral [...] HX SALPINGO-OOPHORECTOMY COLONOSCOPY Comment: 03/2006 HX TONSILLECTOMY NV D&C AFTER DELIVERY NV INJECT TRIGGER POINT, 1 OR 2 Medications: [...] + + +--------+ + + | NV PHYS THERAPY | Procedures | Routin | [...]
--- OUTSIDE RECORDS SUMMARY | ~2020-01-25 | XMS | Encounter Summary ---
[...] of this encounter Progress Notes Interface, Senior Digital Designer In - 08/22/2005 2:06 AM PST [id number] [facility] Date: 07/31/2005 Clinic: Surgery [...] exploratory laparotomy. Plan: Emergency supply approved by [facility] in [place]. Quantity 35 was requested and will be filled. I will send a prescription for 40 additional oxycodone 5 mg. The patient will be seen in clinic in one week. Melisa Thorne / SHARIF [id number] / [id number] / [id number] / [id number] Electronically signed by Kenisha Melton 08-21-2005 07:00:10 PM documented corrie cortes this encounter Plan of Treatment Not on filedocumented as of this encounter Visit Diagnoses Not on filedocumented in this encounter"
--- OUTSIDE RECORDS SUMMARY | ~2020-01-25 | XMS | Encounter Summary ---
Demographics + + + | Address | [address] | | | [place] [address] | + + + | Home Phone [...] Providers + +------+ + | Care Tobacco Stemmer Machine Name | Role | Phone | [...] | | | | | Clementina Winkler [place], | | | | | | [place] [address] | | | +--------+ + + + [...] | Patient: BELINDA MEEHAN J Med Rec: [id number] Sex F Bdate: 1960 | | Date/Time Data | | Entered Into [facility] | | Anesth PostOp | | Surgery Date [id number] 12/09/04 10:30 | | [id number] 11/23/03 10:57 | | Anesthesiologist SYEDA ANDREWS [...]
--- OUTSIDE RECORDS SUMMARY | ~2020-01-25 | XMS | Encounter Summary ---
Demographics + + + | Address | [address] | | | [place] [address] | + + + | Home Phone [...] Providers + +------+ + | Care Impregnator Carbon Products Name | Role | Phone | [...] | | Center at [facility] [address] | CASTING DIRECTOR [address] | | | | | [address] [facility] | [facility] [address] | | | | | for Health and | [place], [place] | | | | | [place] [address] | [address] | | | | | [place], [place] | [phone] | | | | | [address] | | | | | | [phone] | | | +--------+ + + + [...]
--- OUTSIDE RECORDS SUMMARY | ~2020-01-25 | XMS | Encounter Summary ---
[...] Team Providers + +------+ + | Care Content Curator Name | Role | Phone | + [...] | | Center at [facility] [address] | [place] [address] | | | | | [address] [place] | [facility] [address] | | | | | for Health and | [place], [place] | | | | | [place] [address] | [address] | | | | | [place], [place] | [phone] | | | | | [address] | | | | | | [phone] | | | +--------+ + + + [...]
--- OUTSIDE RECORDS SUMMARY | ~2020-01-25 | XMS | Encounter Summary ---
Demographics + + + | Address | [address] | | | [place] [address] | + + + | Home Phone [...] Providers + +------+ + | Care Paint Stock Clerk Name | Role | Phone [...] as of this encounter Progress Notes Interface, Vocational Evaluator In - 08/22/2005 2:06 AM PST [id number] GE[facility] Clinic Date: 07/31/2005 Clinic: Surgery [...] exploratory laparotomy. Plan: Emergency supply approved by [facility] in [place]. Quantity 35 was requested and will be filled. I will send a prescription for 40 additional oxycodone 5 mg. The patient will be seen in clinic in one week. Melisa Thorne / SHARIF [id number] / [id number] / [id number] / [id number] Electronically signed by Kenisha Melton 08-21-2005 07:00:10 PM documented corrie cortes this encounter Plan of Treatment Not on filedocumented as of this encounter Visit Diagnoses Not on filedocumented in this encounter"
--- OUTSIDE RECORDS SUMMARY | ~2020-01-25 | XMS | Encounter Summary ---
Demographics + + + | Address | [address] | | | [place] [address] | + + + | Home Phone [...] Providers + +------+ + | Care Cutter Apprentice Hand Name | Role | Phone | + +------+ + | Petrona Thapa | PCP | | | MD | | | + +------+ + Reason for Visit + +--------+ + | Reason | Onset | Comments | | | Date | | + +--------+ + | Appointment Question | 09/04/ | | | | 2019 | | + +--------+ + Encounter Details +--------+ + + + + | Date | Type | Department | Care Team | Description | +--------+ + + + + | 09/04/ | Telephone | [facility] | Alanis, | Appointment Question | 2019 | | [facility] [address] | MD Petrona | | | | | [place], | [address] [place] | | | | | [place] [address] | [place] [address] | | | | | [phone] | [phone] | | | | | | | [...] | | | | | [place] [address] | | | | | | [phone] | | | | | | | | +--------+---------+ + + + documented as of this encounter Visit Diagnoses Not on filedocumented in this encounter"
--- OUTSIDE RECORDS SUMMARY | ~2020-01-25 | XMS | Encounter Summary ---
Demographics + + + | Address | [address] | | | [place] [address] | + + + | Home Phone [...] Team Providers + +------+ + | Care Dragsaw Operator Name | Role | Phone | [...] as of this encounter Progress Notes Interface, Pattern Clerk In - 01/11/2005 8:56 PM PDTClinic Date: [...] bypass surgery and will be admitted to [facility] for this procedure on [...] Ester Romero M.D. Issac Meeks M.D. / [id number] / [id number] / [id number] / [id number] Tdocumented in this encounter Plan of Treatment Not on filedocumented as of this encounter Visit Diagnoses Not on filedocumented in this encounter"
--- OUTSIDE RECORDS SUMMARY | ~2020-01-25 | XMS | Encounter Summary ---
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 Diagnosis: [place]ab[place] I: 1. (296.32) Major depressive disorder, recurrent, moderate. 2. (309.24) Adjustment disorder with anxiety. 3. (307.89) Chronic pain disorder associated with both psychological factors and a gene ral medical condition. [place]ab[place] II: Deferred [place]ab[place] III: abdominal pain, migraine headache, low back pain. Mab[place] IV: low finances Mabton V: GAF 55-60 Plan: Return with next medical follow-up appointment. Check mood, knee surgery, relaxation, acti vity, distraction. Continue cognitive/behavioral therapy. Total time spent with patient was approximately 45 minutes. LUKASZ CHARLES PHD [facility] [address] [facility], 4th [place] [address] documented in this encount er Plan of [...]
--- OUTSIDE RECORDS SUMMARY | ~2020-01-25 | XMS | Encounter Summary ---
Demographics + + + | Address | [address] | | | [place] [address] | + + + | Home Phone [...] Team Providers + +------+ + | Care Hatch Boss Name | Role | Phone | [...] | | | | [address] Physician's | [place], [place] | | | | | [address] | [address] | | | | | [place], [place] | [phone] | | | | | [address] | | | | | | [phone] | | | +--------+ + + + [...] + + | Performing | Address | City/State/[facility] Cent[facility]ode | Phone Number | | [...]
--- OUTSIDE RECORDS SUMMARY | ~2020-01-25 | XMS | Encounter Summary ---
Demographics + + + | Address | [address] | | | [place] [address] | + + + | Home Phone [...] Team Providers + +------+ + | Care Waxing Machine Operator Helper Name | Role | [...] + | 06/04/ | Telephone | [facility] | Alanis, | Medication Problem | | 2016 | | [address] | MD [place] | | | | | [place], | [address] [facility] | | | | | [place] [address] | [place] [address] | | | | | [phone] | | | | | | | [...] 11:03 AM PSTContac t/Caller: Hannah Contact Number: [phone] Provider/Nurse: Emmy Reason for Call: patient had [...] | | | | | [place] [address] | | | | | | [phone] | | | | | | | | +--------+---------+ + + + documented as of this encounter Visit Diagnoses Not on filedocumented in this encounter"
--- OUTSIDE RECORDS SUMMARY | ~2020-01-25 | XMS | Encounter Summary ---
Demographics + + + | Address | [address] | | | [place] [address] | + + + | Home Phone [...] Providers + +------+ + | Care Box Blank Machine Feeder Name | Role | Phone [...] + | 10/07/ | Telephone | [facility] | Alanis, | Hip Pain | | 2017 | | MEDICINE [address] | MD [place] | | | | | [place], | [address] [facility] | | | | | [place] [address] | [place] [address] | | | | | [phone] | [phone] | | | | | | | [...] PDTPatient lives approx an h our from [facility]. Instructed to go to an urgent care [...] | | | | | [place] [address] | | | | | | [phone] | | | | | | | | +--------+---------+ + + + documented as of this encounter Visit Diagnoses Not on filedocumented in this encounter"
--- OUTSIDE RECORDS SUMMARY | ~2020-01-25 | XMS | Encounter Summary ---
Demographics + + + | Address | [address] | | | [place] [address] | + + + | Home Phone [...] Providers + +------+ + | Care Kitchen Mechanic Name | Role | Phone | [...] [place] | | | | | [place] [address] | [place] [address] | | | | | [phone] | [phone] | | | | | | | [...] pended for MD approval elephone Encounter - Mairs Duckworth - 01/18/2019 9:34 AM PDTPatient called [...] | | | [facility] [address] | | | | | | [place] [address] | | | | | | [phone] | | | | | | | | +--------+---------+ + + + documented as of this encounter Visit Diagnoses Not on filedocumented in this encounter"
--- OUTSIDE RECORDS SUMMARY | ~2020-01-25 | XMS | Encounter Summary ---
Demographics + + + | Address | [address] | | | [place] [address] | + + + | Home Phone [...] Team Providers + +------+ + | Care Accountant Budget Name | Role | Phone | + [...] | | | | | | | [address] | | | | | | | [address] | | | | | | | Pavilion | | | | | | | [place], [place] | | | | | | | [address] | | | | | | | Phone: | | | | | | | [phone] | | | | | | | Fax: | | | | | | | [phone] | +--------+--------+ + + + + Encounter Details +--------+ + + + + | Date | Type | Department | Care Team | Description | +--------+ + + + + | 02/22/ | Hospital | [facility] [address] | Hai Hoyos, | | | 2008 | Encounter | [address] | | | | | | [address] [place] | | | | | | [place], | | | | | | [place] [address] | | | | | | [phone] | | | +--------+ + + + [...] Brief Hospital Course: Patient was admitted to [facility] short stay surgery. Patient was taken to [...] business hours at or page the orthopedist maxillofacial surgeon after regular business hours at [phone]. If you have any of the following: [...] at . Follow Up Tests: (Tests at [facility] must be entered into [employer]) none Condition On Discharge: stable Vital Signs [...] Brief Hospital Course: Patient was admitted to [facility] short stay surgery. Patient was taken to [...] business hours at or page the orthopedist maxillofacial surgeon after regular business hours at [phone]. If you have any of the following: [...] appointment, please call our scheduling line at [phone]. Follow Up Tests: (Tests at [facility] must be entered into Epic) none Condition [...] [facility] | [address] | [place] [address] | | | PATHOLOGY | [address] [...] [facility] | [address] | [place] [address] | | | PATHOLOGY | [address] [...] | | | | | performed at [facility] | | | | | | [facility] [...] [facility] | [address] | [place] [address] | | | PATHOLOGY | [address] [...] [facility] | [address] | [place] [address] | | | PATHOLOGY | [address] [...] | | | | | performed at [facility] | | | | | | [place] [...] [facility] | [address] | [place] [address] | | | PATHOLOGY | [address] [...] [facility] | [address] | [place] [address] | | | PATHOLOGY | [address] [...] Lab) | | | | | | [facility] | | | | | | [address] [place] | | | | | [address] | | | | | | [place] [address] | | | | + + + + + + + + | Specimen | + + | | + + + + + + + | Performing | Address | City/State/Zipcode | Phone Number | | Organization | | | | + + + + + | [facility] | [address] | [place] [address] | | | PATHOLOGY | [address] [...] Performed At | + + + | [id number] | | | [id number] | | | GEOVANNI Barnes [address] | | | Date: 02/22/2009 Attending Surgeon: | | | Hai Hoyos MD Sports Instructor(s): | | | Shantel Whipple Preoperative | | | Diagnosis(es): Left symptomatic scapula lesion. Postoperative | | | Diagnosis(es): Left symptomatic scapula lesion. Procedures | | | Performed: 1. Curettage and bone grafting of the left scapular | | | lesion. 2. Open biopsy, left scapular lesion. | | | Donna Clancy served as my legal support assistant because no other qualified | | [...] | aforementioned. MD ARTIS Wei / SHARIF [id number] / | | | [id number] / [id number] / | | + + + + + | Procedure Note | + + | Hai Hoyos MD - 02/22/2009 12:00 AM PDT [id number] | | [id number] [facility] | | [id number] Date: 02/22/2009 Attending Surgeon: Hai | | MD Romain Sports Instructor(s): Raj Whipple. Preoperative | | Diagnosis(es):Left symptomatic scapula lesion. Postoperative Diagnosis(es):Left | | symptomatic scapula lesion. Procedures Performed:1. Curettage and bone grafting of | | the left scapular lesion.2. Open biopsy, left scapular lesion. Donna Clancy | | served as my legal support assistant because no other qualified help wasavailable. [...] plan is as aforementioned. CHARU Wei / [id number] / [id number] / [id number] /D: | | 02/22/2009T: 02/22/2009 | | [...] |Hai Hoyos MD | |ZA / | |[id number] / [id number] / [id number] / | | | | | | [...] + + + | [facility] DEPARTMENT OF | [address] | [place] [address] | | | PATHOLOGY | [address] | | | + + + + + | [facility] DEPARTMENT OF | [facility] | [place] [address] | | | PATHOLOGY | [address] [...]
--- OUTSIDE RECORDS SUMMARY | ~2020-01-25 | XMS | Encounter Summary ---
Demographics + + + | Address | [address] | | | [place] [address] | + + + | Home Phone [...] Providers + +------+ + | Care Equine Dentist Name | Role | Phone | [...] | | | [facility] | [place], [place] | and counseling | | | | Pavilion [address] | [address] | | | | | [address] | [phone] | | | | | [facility] | | | | | | Physician's | | | | | | Pavilion [place], | | | | | | [place] [address] | | | | | | [phone] | | | +--------+ + + + [...]
--- OUTSIDE RECORDS SUMMARY | ~2020-01-25 | XMS | Encounter Summary ---
Demographics + + + | Address | [address] | | | [place] [address] | + + + | Home Phone [...] [address] | | | | | | [place], [place] | | | | | | [address] | | | +--------+ + + + [...] as of this encounter Progress Notes Interface, Brand Planner In - 03/12/2007 2:28 AM PDT [id number] [facility] [address] Clinic Date: 02/23/2007 Clinic: Endocrinology Subjective: Belinda [...] performed next Thursday, March 01, 2007, in [place]. The right knee will be replaced in [...] patch 25 mcg for 72 hours. 2. [place]/acetaminophen 10 mg/325 mg, 1 every 6 hours [...] months. Beto Meeks M.D. PD / HS [id number] / [id number] / [id number] / [id number] cc: Pedrito Gutierrez M.D. [address] [place] [address] Chris Padgett M.D. Department of Surgery, [facility] Electronically signed by Beto eMeks 03-11-2007 04:41:13 PM nterface, Brand Planner In - 03/12/2007 2:28 AM PDT [id number] GEOVANNI SKELTON J 399182 Clinic Date: 02/23/2007 Clinic: Endocrinology Belinda Meehan [...] her primary care provider, Dr. Gutierrez in [place]. She had a followup eye exam today, [...] replacement next Thursday (in 6 days) in [place], [place]. The right knee replacement tentatively will [...] as needed. Beto Meeks M.D. / SHARIF [id number] / [id number] / [id number] / [id number] cc: Pedrito Gutierrez M.D. [address] [place] [address] Joanna Arshad M.D. Electronically signed by Beto Meeks 03-11-2007 04:41:08 PM documented in this encounter Plan of Treatment Not on filedocumented as of this encounter Visit Diagnoses Not on filedocumented in this encounter"
--- OUTSIDE RECORDS SUMMARY | ~2020-01-25 | XMS | Encounter Summary ---
Demographics + + + | Address | [address] | | | [place] [address] | + + + | Home Phone [...] Providers + +------+ + | Care Professional Benefits Sales Consultant Name | Role | Phone [...] Pavilion | | | | | | [place], [place] | | | | | | [address] | | | | | | [phone] | | | +--------+---------+ + + + [...] take place on the hill at the [facility]: Surgeries scheduled in the [facility] ( [facility]): registration is located on the 4th floor of [facility] (Day Surgery). Surgeries scheduled in the [facility] [facility]: registration is located on the 9th floor. Surgeries scheduled in [facility]: registration is located on the 6th floor. Surgeries scheduled in the [facility]: registration is located i n the [facility] on the first floor. For surgeries scheduled to take place at the [facility]: registration is l [...] If you use specialized medical equipment at [facility], please check with [...]
--- OUTSIDE RECORDS SUMMARY | ~2020-01-25 | XMS | Encounter Summary ---
Demographics + + + | Address | [address] | | | [place] [address] | + + + | Home Phone [...] + +------+ + | Care Entry Level Paralegal Name | Role | Phone | [...] | | 2017 | | MEDICINE [address] | MD [place] | | | | | [place], | [address] [facility] | | | | | [place] [address] | [place] [address] | | | | | [phone] | [phone] | | | | | | | [...] - 07/17/2017 11:54 AM PSTReceived call from lsick jacobsen stating that she woke up from [...] | | | | | [place] [address] | | | | | | [phone] | | | | | | | | +--------+---------+ + + + documented as of this encounter Visit Diagnoses Not on filedocumented in this encounter"
--- OUTSIDE RECORDS SUMMARY | ~2020-01-25 | XMS | Encounter Summary ---
Demographics + + + | Address | [address] | | | [place] [address] | + + + | Home Phone [...] Providers + +------+ + | Care Metal Molder Name | Role | Phone | [...] + | 03/28/ | Refill | [facility] | Alanis, | Medication Refill | | 2016 | | MEDICINE [address] | MD [place] | | | | | [place], | [address] [facility] | | | | | [place] [address] | [place] [address] | | | | | [phone] | [phone] | | | | | | | [...] | | | | | [place] [address] | | | | | | [phone] | | | | | | | | +--------+---------+ + + + documented as of this encounter Visit Diagnoses Not on filedocumented in this encounter"
--- OUTSIDE RECORDS SUMMARY | ~2020-01-25 | XMS | Encounter Summary ---
Demographics + + + | Address | [address] | | | [place] [address] | + + + | Home Phone [...] Providers + +------+ + | Care Java Websphere Developer Name | Role | Phone | [...] + + | 09/09/ | Office | 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 2. Continue with Brimfield 10/325 1 tablet as needed for activity [...] Belinda Meehan is a 46 y[address] female [facility] Return Visit [...] able to see Dr Gutierrez yet b ma does have and appointment next week to [...] ev eduardo 72 hours. 2. Continue with Brimfield 10/325 1 tablet as needed for activity related pain NTE 3 per day. 3. Continue with pain psychology and physical therapy. 4. Follow up in two weeks to review medication management 5. Keep neurology evaluation as able with insurance aurthorization.- migraine headache eval uation 6. PCP to assess LE edema/swelling. DELFINA MOLINA [facility] Mail code CH 4P [facility] and [facility] [address] [facility] [address] Ailyn Foster 09/10/19 07 12:20 PM [...] refills today? yes documented in this [facility] er Plan of Treatment Not on filedocumented [...]
--- OUTSIDE RECORDS SUMMARY | ~2020-01-25 | XMS | Encounter Summary ---
Demographics + + + | Address | [address] | | | [place] [address] | + + + | Home Phone [...] Providers + +------+ + | Care Ham Stringer Name | Role | Phone | [...] [address] | | | | | [place], [place] | [place] | | | | | [address] | [address] | | | | | [phone] | [phone] | | | | | | | [...] [facility] | [address] | [place] [address] | | | PATHOLOGY | [address] | | | + + + + + | [facility] | [address] | [place] [address] | | | PATHOLOGY | [address] [...] DEPARTMENT OF | [address] | [place] [address] | | | PATHOLOGY | [address] | | | + + + + + | [place] DEPARTMENT OF | [address] | [place] [address] | | | PATHOLOGY | [address] [...] [facility] DEPARTMENT OF | [address] [facility] | [place] [address] | | | PATHOLOGY | [address] | | | + + + + + | [facility] DEPARTMENT OF | [address] [facility] | [place] [address] | | | PATHOLOGY | [address] [...] [facility] | [address] [place] [address] | [place] [address] | | | PATHOLOGY | [address] | | | + + + + + | [facility] DEPARTMENT OF | [facility] | [place] [address] | | | PATHOLOGY | [address] | | | + + + + + documented in this encounter Visit Diagnoses Not on filedocumented in this encounter"
--- OUTSIDE RECORDS SUMMARY | ~2020-01-25 | XMS | Encounter Summary ---
Demographics + + + | Address | [address] | | | [place] [address] [...] Providers + +------+ + | Care Flatwork Finisher Hand Name | Role | Phone | [...] + + | 07/16/ | Telephone | [facility] | Alanis, | IV Medication | | 2017 | | MEDICINE [address] | MD Petrona | | | | | [place], | [address] [facility] | | | | | [place] [address] | [place] [address] | | | | | [phone] | [phone] | | | | | | | [...] answer, left message requesting call back at [phone]. elephone Encounter - Malissa Redd - 07/16/2017 12:19 PM PSTPatient called and would like a call back about the IV please. Patient is also asking about the orders for her Ultrasound if they have been sent to imaging. [phone] signed by Malissa Redd at 07/16/2017 12:21 PM PSTTelephone En counter - Tuan Snider - 07/16/2017 11:03 AM PSTContact/Caller: Belinda Contact Number: [phone] Provider/Nurse: Emmy Reason for Call: Belinda will like a call back from nurse to discuss IV medicaion. Please ad kylie. Last Appointment: 07/16/17 Next Appointment: 08/18/17 documented [...] | [facility] [address] | | | | | | [place] [address] | | | | | | [phone] | | | | | | | | +--------+---------+ + + + documented as of this encounter Visit Diagnoses Not on filedocumented in this encounter"
--- OUTSIDE RECORDS SUMMARY | ~2020-01-25 | XMS | Encounter Summary ---
Demographics + + + | Address | [address] | | | [place] [address] | + + + | Home Phone [...] + +------+ + | Care Dental Laboratory Technician Name | Role | Phone [...] | | | | | site | [place] | [place] | | | | | Cervicalgia | [address] | [address] | | | | | Pain in | | | | | | | joint, site | | | | | | | unspecified | | | | | | | Procedures | | | | | | | [place] | | | | | | [...] Spondylosis | | 2006 | Visit | [place] [facility] | [address] | without Myelopathy | | | | [address] [place], | (Primary Dx); | | | | [facility] for | [place] [address] | 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 Provider: DELFINA MOLINA ANP elfina Molina - 007 6:13 PM PST.pt rnaga Nathalia willson - 07/15/2006 4:28 PM PSTFormatting of this note might be different from the origin al. Physical Therapy Medicare Progress Note Date: 07/15/2006 Belinda Meehan [id number]. 1960 Start of Care: 06/23/2006 Referring Provider: [...] + + +--------+ + + | [place] MANUAL THER | Procedures | Routin | [...] [place] THERAPEUTIC | Procedures | Routin | Cervical [...]
--- OUTSIDE RECORDS SUMMARY | ~2020-01-25 | XMS | Encounter Summary ---
Demographics + + + | Address | [address] | | | [place] [address] | + + + | Home Phone [...] + +------+ + | Care Beef Cattle Farmer Name | Role | Phone | [...] | 06/14/ | Refill | [facility] [place] [facility] | Alanis, | Medication Refill | | 2018 | | MEDICINE [address] | MD [place]rona | | | | | [place], | [address] | | | | | [place] [address] | [place] [address] | | | | | [phone] | [phone] | | | | | | | [...] | | | | | [place] [address] | | | | | | [phone] | | | | | | | | +--------+---------+ + + + documented as of this encounter Visit Diagnoses Not on filedocumented in this encounter"
--- OUTSIDE RECORDS SUMMARY | ~2020-01-25 | XMS | Encounter Summary ---
Demographics + + + | Address | [address] | | | [place] [address] | + + + | Home Phone [...] Team Providers + +------+ + | Care Broiler Chef Or Cook Name | Role | Phone | [...] [address] | | | | | [place], [place] | [place], [place] | | | | | [address] | [address] | | | | | [phone] | [phone] | | | | | | | [...] DEPARTMENT OF | [address] | [place] [address] | | | PATHOLOGY | [address] | | | + + + + + | [facility] DEPARTMENT OF | [address] | [place] [address] | | | PATHOLOGY | [address] [...] + + | [facility] DEPARTMENT OF | [address] | [place] [address] | | | PATHOLOGY | [address] | | | + + + + + | [facility] DEPARTMENT OF | [address] | [place] [address] | | | PATHOLOGY | [address] [...] Performed At | + + + | [id number] Estimated GFR > 60 mL/min/1.73 sq m if non- | [facility] | | [id number] Estimated GFR > 60 mL/min/1.73 sq m [...] | [facility] | [address] | [place] [address] | | | PATHOLOGY | [address] | | | + + + + + | [facility] | [address] | [place] [address] | | | PATHOLOGY | [address] | | | + + + + + documented in this encounter Visit Diagnoses Not on filedocumented in this encounter"
--- OUTSIDE RECORDS SUMMARY | ~2020-01-25 | XMS | Encounter Summary ---
Demographics + + + | Address | [address] | | | [place] [address] | + + + | Home Phone [...] Providers + +------+ + | Care Cardiac Tech Name | Role | Phone | [...] | [facility] [place], | Region; Neck Pain; | | | | [address] [place] [facility] [place] | [place] [address] | Herniated Lumbar | | | | Health and Healing, | | Intervertebral Disc | | | | | | L4-5; Fibromyalgia | | | | Floor [place], [place] | | syndrome 729.1 | | | | [address] | | | | | | [phone] | | | +--------+---------+ + + + [...] Date: August 12, 2006 Patient: Belinda Meehan, [id number], 1960 I agree with the proposed Physical Therapy Treatment Plan. Provider: DELFINA MOLINA ANP Nathalia Keyes - 007 12:04 PM PST Physical Therapy Medicare Progress Note Date: 08/12/2006 Belinda Meehan [id number]. 1960 Start of Care: 06/23/2006 Referring Provider: [...] [place] THERAPEUTIC | Procedures | Routin | Spondylosis [...] [place] THERAPEUTIC | Procedures | Routin | Spondylosis [...]
--- OUTSIDE RECORDS SUMMARY | ~2020-01-25 | XMS | Encounter Summary ---
Demographics + + + | Address | [address] | | | [place] [address] | + + + | Home Phone [...] Providers + +------+ + | Care Shift Mgr Name | Role | Phone | [...] | | | [facility] | [place], [place] | and counseling; | | | | [address] | [address] | [place] | | | | [address] | [phone] | | | | | [facility] | | | | | | Physician's | | | | | | Pavilion [place], | | | | | | [place] [address] | | | | | | [phone] | | | +--------+ + + + [...]
--- OUTSIDE RECORDS SUMMARY | ~2020-01-25 | XMS | Encounter Summary ---
Demographics + + + | Address | [address] | | | [place] [address] | + + + | Home Phone [...] Providers + +------+ + | Care Energy Director Name | Role | Phone | [...] [facility] | | | | | [place] [address] | [place] [address] | | | | | [phone] | [phone] | | | | | | | [...] | | | | | [place] [address] | | | | | | [phone] | | | | | | | | +--------+---------+ + + + documented as of this encounter Visit Diagnoses Not on filedocumented in this encounter"
--- OUTSIDE RECORDS SUMMARY | ~2020-01-25 | XMS | Encounter Summary ---
Demographics + + + | Address | [address] | | | [place] [address] | + + + | Home Phone [...] Providers + +------+ + | Care Baby Counselor Name | Role | Phone | [...] [address] | | | | | | [facility] | | | | | | [place], [place] | | | | | | [address] | | | | | | [phone] | | | +--------+ + + + [...]
--- OUTSIDE RECORDS SUMMARY | ~2020-01-25 | XMS | Encounter Summary ---
Demographics + + + | Address | [address] | | | [place] [address] | + + + | Home Phone [...] Providers + +------+ + | Care Hydro Operator Name | Role | Phone | [...] | | | [facility] | [place], [place] | | | | | [address] | [address] | | | | | [address] | [phone] | | | | | Physician's | | | | | | Pavilion, 1st floor | | | | | | [place], [place] | | | | | | [address] | | | | | | [phone] | | | +--------+ + + + [...]
--- OUTSIDE RECORDS SUMMARY | ~2020-01-25 | XMS | Encounter Summary ---
Demographics + + + | Address | [address] | | | [place] [address] | + + + | Home Phone [...] Providers + +------+ + | Care Detective Private Eye Name | Role | Phone | + [...] | | 2005 | | Center at [facility] [address] | | endoscopy procedure | | | | [facility] | | | | | | for Health and | | | | | | [facility] | | | | | | [place], [place] | | | | | | [address] | | | | | | [phone] | | | +--------+ + + + [...] en doscopy in the Gastroenterology Clinic at [facility], see transcri bed report. Earnest Ward documented in this encount er Plan of Treatment + + +--------+ + + | Name | Type | Priori | Associated Diagnoses | Order Schedule | | | | ty | | | + + +--------+ + + | [place] [facility], | Procedures | Routin [...]
--- OUTSIDE RECORDS SUMMARY | ~2020-01-25 | XMS | Encounter Summary ---
Demographics + + + | Address | [address] | | | [place] [address] [...] Providers + +------+ + | Care Workday Director Name | Role | Phone | [...] | 03/05/ | Telephone | [facility] | Alanis, | Vomiting | | 2017 | | MEDICINE [address] | MD Petrona | | | | | [place], | [address] [facility] | | | | | [place] [address] | [place] [address] | | | | | [phone] | [phone] | | | | | | | [...] on the . Called Tayo Mcdonough in [facility] and spoke to Jung letting him know that we are n ot submitting a PA request at this time since patient is following up with Dr. Vivas. [facility] ed prior auth request today. TTelephone Encounter - Mayda Montoya - 03/10/2018 4:46 PM PDTReceived prior auth request [facility]z (promethazine). Noted on request that insurance requested to try: Prochlorperazine Granisetron HCL Would these be appropriate for patient or would you like to continue with the Phenadoz. Rich nk you. elephone Encounter - Lisa Hurley RN - 03/05/2018 4:43 PM PDTCalled patient back. Her insurance won't cov er the Phenergan suppositories either. Called Tayo Mcdonough in [place] and spoke with Sarbari. Both the Zofran and Phenergan suppository orders [...] back . Patient can be reached at [phone] signed by Sia Bai at 03/05/2018 12:24 [...] she we nt to the ER at [facility] yesterday by ambulance due to severe N/V, [...] can hardly make it to her bathroom. [facility] called her this morning to F/U on [...] | | | | | [place] [address] | | | | | | [phone] | | | | | | | | +--------+---------+ + + + documented as of this encounter Visit Diagnoses Not on filedocumented in this encounter"
--- OUTSIDE RECORDS SUMMARY | ~2020-01-25 | XMS | Encounter Summary ---
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 Diagnosis: [place] I: 1. (296.32) Major depressive disorder, recurrent, moderate. 2. (309.24) Adjustment disorder with anxiety. 3. (307.89) Chronic pain disorder associated with both psychological factors and a gene ral medical condition. [place] II: Deferred [place] III: abdominal pain, migraine headache, low back pain. [place] IV: low finances [place] V: GAF 55-60 Plan: Return in 2 weeks. Check niece's visit, pacing, relaxation, activity, distraction. Contin ue cognitive/behavioral therapy. Total time spent with patient was approximately 45 minutes. LUKASZ CHARLES PHD [facility] [address] [facility], [address] [place] [address] documented in this encount er Plan of [...] | ([facility]) Left Knee | | | | | [...]
--- OUTSIDE RECORDS SUMMARY | ~2020-01-25 | XMS | Encounter Summary ---
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 Diagnosis: [place] I: 1. (296.32) Major depressive disorder, recurrent, moderate. 2. (309.24) Adjustment disorder with anxiety. 3. (307.89) Chronic pain disorder associated with both psychological factors and a gene ral medical condition. [place] II: Deferred [place] III: abdominal pain, migraine headache, low back pain. [place] IV: low finances [place] V: GAF 50 Plan: Return in 2 weeks. Check pacing, relaxation, activity, distraction. Check managing Pain.. . book. Continue cognitive/behavioral therapy. Total time spent with patient was approximately 45 minutes. LUKASZ CHARLES [facility] [address] [place] [address] And [facility] [address] [place] [address] documented in this encount er Plan of [...]
--- OUTSIDE RECORDS SUMMARY | ~2020-01-25 | XMS | Encounter Summary ---
Demographics + + + | Address | [address] | | | [place] [address] | + + + | Home Phone [...] Providers + +------+ + | Care Coil Tier Name | Role | Phone | [...] + + | 03/03/ | Telephone | [facility] | Alanis, | Medication Question | | 2017 | | MEDICINE [address] | MD Petrona | | | | | [place], | [address] [place] | | | | | [place] [address] | [place] [address] | | | | | [phone] | [phone] | | | | | | | [...] - 03/03/2018 3:38 PM PDTCall returned to [place] at the [facility] in [facility]. I informed her that feels that, although the rx for the Clonidine is a good id ea, it was not appropriate for the patient, due high fall risk. I have also call [facility] and gave verbal order to [...] her to go to the ER in [facility]. Will call her back later this afternoon [...] PDTReceived a call from Ju Lynch with [facility] wanting to speak with the [...] | | | | | [place] [address] | | | | | | [phone] | | | | | | | | +--------+---------+ + + + documented as of this encounter Visit Diagnoses Not on filedocumented in this encounter"
--- OUTSIDE RECORDS SUMMARY | ~2020-01-25 | XMS | Encounter Summary ---
Demographics + + + | Address | [address] | | | [place] [address] | + + + | Home Phone [...] Team Providers + +------+ + | Care Grating Machine Operator Name | Role | Phone [...] [facility] | | | | | [facility] | [place], [place] | | | | | and Healing, | [address] | | | | | [place] [address] [facility] | [phone] | | | | | Floor [place], [place] | | | | | | [address] | | | | | | [phone] | | | +--------+ + + + [...]
--- OUTSIDE RECORDS SUMMARY | ~2020-01-25 | XMS | Encounter Summary ---
Demographics + + + | Address | [address] | | | [place] [address] | + + + | Home Phone [...] Providers + +------+ + | Care Supervisor Plastering Name | Role | Phone | + [...] Pavilion | | | | | | [place], [place] | | | | | | [address] | | | | | | [phone] | | | +--------+ + + + [...]
--- OUTSIDE RECORDS SUMMARY | ~2020-01-25 | XMS | Encounter Summary ---
Demographics + + + | Address | [address] | | | [place] [address] | + + + | Home Phone [...] Providers + +------+ + | Care Cylinder Valve Repairer Name | Role | Phone | [...] [id number] | | | | | | [place], [place] | | | | | | [address] | | | | | | [phone] | | | +--------+ + + + [...]
--- OUTSIDE RECORDS SUMMARY | ~2020-01-25 | XMS | Encounter Summary ---
Demographics + + + | Address | [address] | | | [place] [address] | + + + | Home Phone [...] Providers + +------+ + | Care Television Production Technician Name | Role | Phone [...] | 12/14/ | Refill | [facility] [place] [facility] | Alanis, | Medication Refill | | 2018 | | MEDICINE [address] | MD Petrona | | | | | [place], | [address] [facility] | | | | | [place] [address] | [place] [address] | | | | | [phone] | [phone] | | | | | | | [...] | | | | | [place] [address] | | | | | | [phone] | | | | | | | | +--------+---------+ + + + documented as of this encounter Visit Diagnoses Not on filedocumented in this encounter"
--- OUTSIDE RECORDS SUMMARY | ~2020-01-25 | XMS | Encounter Summary ---
Demographics + + + | Address | [address] | | | [place] [address] | + + + | Home Phone [...] + +------+ + | Care Market Research Consultant Name | Role | Phone | [...] Medicare/Ion | , MD [address] | [place], | | | | | escu | [address] | [place] [address] | | | | | Procedures | [place], | Phone: | | | | | OFFICE VISIT | [place] | [phone] | | | | | REGULAR | [address] | Fax: | | | | | | Phone: | [phone] | | | | | | [phone] | | | | | | | Fax: | | | | | | | [phone] | | +--------+--------+ + + + + Encounter Details +--------+---------+ + + + | Date | Type | Department | Care Team | Description | +--------+---------+ + + + | 12/07/ | Office | [facility] | Ulysses Dsouza MD | BPPV (benign | | 2015 | Visit | OTOLARYNGOLOGY [address] | [address] | paroxysmal | | | | [address] | positional vertigo), | | | | [place], [place] | [place] [address] | left (Primary Dx); | | | | [address] | [phone] | Vertigo of central | | | | [phone] | | origin, left | +--------+---------+ + [...] MD - 12/07/2014 1:48 PM PDT [facility] OTOLARYNGOLOGY [address] [place] [address] OFFICE NOTE ULYSSES DSOUZA MD Patient: BELINDA MEEHAN Admitting: MR #: [id number] LOC: PT TYPE: Adm Date: 12/07/2014 : 1960 DATE OF VISIT: 12/07/2014. The patient is having a tremendous problem with her balance. At times she gets a spinning type sensation, other times she just tends to fall down and recently she has developed a w rist drop on the right arm. She has seen an orthopedist who put her in a splint. [facility] has completed an MRI scan [...] 12/07/2014 13:48:42 Transcribed on 12/08/2014 04:46:49 by [facility] job# [id number] Confirmation #: [id number] signed by Ulysses Dsouza MD at 12/08/2014 8:52 AM Ulysses Arnold MD - 12/07/2014 1:43 PM PDTSee dictation #[id number] signed by Dmitriy Dsouza MD at 12/07/2014 1:49 PM PDTdocumented in this encounter Plan of Treatment +--------+---------+ + + + | Date | Type | Specialty | Care Team | Description | +--------+---------+ + + + | 02/15/ | Office | Internal Medicine | Alanis, | | | 2019 | Visit | | MD [place] | | | | | | [address] [place] [address] [place] | | | | | | [place] [address] | | | | | | [phone] | | | | | | | | +--------+---------+ + + + documented as of this encounter Visit Diagnoses + + | Diagnosis | + + | BPPV (benign paroxysmal positional vertigo), left - Primary | + + | Vertigo of central origin, left | + + documented in this encounter
--- OUTSIDE RECORDS SUMMARY | ~2020-01-25 | XMS | Encounter Summary ---
Demographics + + + | Address | [address] | | | [place] [address] | + + + | Home Phone [...] Providers + +------+ + | Care Business Systems Developer Name | Role | Phone | [...] Naeem Mcrae | | | | | [facility] | [place], [place] | | | | | and Healing, | [address] | | | | | [facility] | [phone] | | | | | Floor [place], [place] | | | | | | [address] | | | | | | [phone] | | | +--------+ + + + [...]
--- OUTSIDE RECORDS SUMMARY | ~2020-01-25 | XMS | Encounter Summary ---
Demographics + + + | Address | [address] | | | [place] [address] | + + + | Home Phone [...] Team Providers + +------+ + | Care Catering And Events Manager Name | Role | Phone | + +------+ + | Pedrito Gutierrez MD | PCP | | + +------+ + Encounter Details +--------+ + + + + | Date | Type | Department | Care Team | Description | +--------+ + + + + | 08/22/ | Hospital | Radiology/Imaging | | | | 2008 | Encounter | Lab at [facility] [address] | | | | | [address] [facility] | | | | | | Health and Healing, | | | | | | [place] [address], [facility] | | | | | | Floor [place], [place] | | | | | | [address] | | | | | | [phone] | | | +--------+ + + + [...]
--- OUTSIDE RECORDS SUMMARY | ~2020-01-25 | XMS | Encounter Summary ---
Demographics + + + | Address | [address] | | | [place] [address] | + + + | Home Phone [...] + + | 07/20/ | Telephone | [facility] | Alanis, | Immunizations | | 2018 | | MEDICINE [address] [place] [address] | MD Petrona | | | | | [place], | [address] [facility] | | | | | [place] [address] | [place] [address] | | | | | [phone] | [phone] | | | | | | | [...] requesting dexascan results to be done at [facility], referral submitted Telephone Encounter - Petrona [...] locate her last bone density scan from [facility] but I don't see it, other than [...] regarding message. Please call her back at [phone]. P STTelephone Encounter - Maggie Montoya LPN [...] osteoporosis injection, patient can be reached at [phone] signed by Sia Bai at 07/20/2018 9:51 [...] | | | | | [place] [address] | | | | | | [phone] | | | | | | | [...]
--- OUTSIDE RECORDS SUMMARY | ~2020-01-25 | XMS | Encounter Summary ---
Demographics + + + | Address | [address] | | | [place] [address] | + + + | Home Phone [...] Providers + +------+ + | Care Nurse Sitter Name | Role | Phone | [...] | | | | | [place], | | | | | | [place] [address] | | | | | | [phone] | | +--------+ + + + + [...] + +---------+ + + | [facility] DEPARTMENT OF | | | | | [...] + +---------+ + + | [facility] DEPARTMENT OF | | | | | [...] + +---------+ + + | [facility] DEPARTMENT OF | | | | | RADIOLOGY | | | | + +---------+ + + documented in this encounter Visit Diagnoses Not on filedocumented in this encounter"
--- OUTSIDE RECORDS SUMMARY | ~2020-01-25 | XMS | Encounter Summary ---
Demographics + + + | Address | [address] | | | [place] [address] | + + + | Home Phone [...] Team Providers + +------+ + | Care Physiotherapy Practice Manager Name | Role | Phone [...]
--- OUTSIDE RECORDS SUMMARY | ~2020-01-25 | XMS | Encounter Summary ---
Demographics + + + | Address | [address] | | | [place] [address] | + + + | Home Phone [...] Providers + +------+ + | Care Aircraft Systems Technician Name | Role | Phone [...] | 09/21/ | Refill | [facility] [place] [facility] | Alanis, | Medication Refill | | 2019 | | MEDICINE [address] | MD [place]a | | | | | [place], | [address] | | | | | [place] [address] | [place] [address] | | | | | [phone] | [phone] | | | | | | | [...] | | | | | [place] [address] | | | | | | [phone] | | | | | | | | +--------+---------+ + + + documented as of this encounter Visit Diagnoses Not on filedocumented in this encounter"
--- OUTSIDE RECORDS SUMMARY | ~2020-01-25 | XMS | Encounter Summary ---
Demographics + + + | Address | [address] | | | [place] [address] | + + + | Home Phone [...] Team Providers + +------+ + | Care Nutritionalist Name | Role | Phone | + [...] | | | | | elsewhere | [place], [place] | [place], [place] | | | | | classified | [address] | [address] | | | | | Procedures | | Phone: | | | | | ME | | [phone] | | | | | PSYCHOTHERPY | | Fax: | | | | | , OFFICE | | [phone] | | | | | (80-26) | | | +--------+--------+ + + + + Encounter Details +--------+---------+ + + + | Date | Type | Department | Care Team | Description | +--------+---------+ + + + | 07/15/ | Office | Pain Center at [facility] | Lukasz Charles, | Major Depressive | | 2006 | Visit | [address] | PhD [address] | Disorder, Recurrent | | | | Center for Health | [place], [place] | Episode, Moderate | | | | and Healing, | [address] | ([facility]); Cervical | | | | | [phone] | Spondylosis without | | | | Floor [place], [place] | | Myelopathy; Migraine | | | | [address] | | Headache; | | | | [phone] | | Adjustment Disorder | | | [...] She appears to have good insight. Diagnosis: [place] I: 1. (296.32) Major depressive disorder, recurrent, moderate. 2. (309.24) Adjustment disorder with anxiety. 3. (307.89) Chronic pain disorder associated with both psychological factors and a gene ral medical condition. [place] II: Deferred [place] III: abdominal pain, migraine headache, low back pain. [place] IV: low finances [place] V: GAF 50 Plan: Return in 2 weeks. Check relaxation and activity. Check mood. Continue cognitive/behavio ral therapy. Total time spent with patient was approximately 50 minutes. LUKASZ CHARLES PHD [facility] [facility], 4th [place] [address] [facility] Plan of Treatment + + +--------+ [...] + + +--------+ + + | ME BIOFEEDBACK | Procedures | Routin | Cervical [...]
--- OUTSIDE RECORDS SUMMARY | ~2020-01-25 | XMS | Encounter Summary ---
Demographics + + + | Address | [address] | | | [place] [address] | + + + | Home Phone [...] Team Providers + +------+ + | Care Sustainable Design Consultant Name | Role | Phone | [...] + + | 04/29/ | Telephone | [facility] | Alanis, | Medication Refill | | 2017 | | [facility] [address] | MD Petrona | Assistance | | | | [place], | [address] | | | | | [place] [address] | [place] [address] | | | | | [phone] | [phone] | | | | | | | [...] | | | | | [place] [address] | | | | | | [phone] | | | | | | | | +--------+---------+ + + + documented as of this encounter Visit Diagnoses Not on filedocumented in this encounter"
--- OUTSIDE RECORDS SUMMARY | ~2020-01-25 | XMS | Encounter Summary ---
Demographics + + + | Address | [address] | | | [place] [address] | + + + | Home Phone [...] Team Providers + +------+ + | Care Weld Lay Out Worker Name | Role | Phone [...] as of this encounter Progress Notes Interface, Filament Shaper In - 07/03/2006 2:33 AM PST [id number] GEOVANNI SKELTON J [id number] Clinic Date: 06/24/2006 Clinic: Rheumatology Subjective: Belinda Meehan is a 46-year-old woman here for followup of fibromyalgia. She comes from [place] and is now also working with the [...] I will have a meeting soon with [facility] to start doing my [...] 2 months. Caitlin Rivera M.S., F.N.P. / [id number] / [id number] / [id number] / [id number] cc: [facility] Electronically signed by Caitlin Rivera 07-02-2006 11:27:56 AM documented in this encounter Plan of Treatment Not on filedocumented as of this encounter Visit Diagnoses Not on filedocumented in this encounter"
--- OUTSIDE RECORDS SUMMARY | ~2020-01-25 | XMS | Encounter Summary ---
Demographics + + + | Address | [address] | | | [place] [address] | + + + | Home Phone [...] [address] | | | | | | [place], [place] | | | | | | [address] | | | | | | [phone] | | | +--------+ + + + [...]
--- OUTSIDE RECORDS SUMMARY | ~2020-01-25 | XMS | Encounter Summary ---
Demographics + + + | Address | [address] | | | [place] [address] | + + + | Home Phone [...] Team Providers + +------+ + | Care Pcb Design Engineer Name | Role | Phone [...] | | | | | | Mailcode: [facility] | | | | | | | [facility] Center | | | | | | | for Health | | | | | | | and Healing, | | | | | | | [address] | | | | | | | [facility] [place] | | | | | | | [address] | | | | | | | Phone: | | | | | | | [phone] | | | | | | | Fax: | | | | | | | [phone] | +--------+--------+ + + + + Encounter Details +--------+ + + + + | Date | Type | Department | Care Team | Description | +--------+ + + + + | 09/14/ | Hospital | [facility] PROCEDURE | Olivia, | | | 2008 | Encounter | [address] | MD Pedrito | | | | | Bethanie Mailcode: [facility] | | | | | | [facility] for | | | | | | Health and Healing, | | | | | | [address] | | | | | | [facility] [place] | | | | | | [address] | | | | | | [phone] | | | +--------+ + + + [...] Discharge Instructions Instructions Marleen Hogan - 09/14/2008 [facility] Endoscopy [address] [place] [address] Toll Free ext: [phone] Home Care Instructions after EGD (Upper Endoscopy) [...] hours, or on weekends and holidays Hospital Financial Dealers and have the GI doctor cement contractor paged. The provider who performed your procedure [...] Meehan is a 48 y.o. female MR# [id number] presents today for an EG D to [...] 01/22/2006 Tramadol 01/22/2006 Morphine Clarithromycin Hives 06/28/2007 Nkhtsfi-nmwyqvpeim-zhl-caff 08/28/2008 See procedure note 09/14/2008 documented in [...]
--- OUTSIDE RECORDS SUMMARY | ~2020-01-25 | XMS | Encounter Summary ---
Demographics + + + | Address | [address] | | | [place] [address] | + + + | Home Phone [...] Providers + +------+ + | Care Mobile Ui/Ux Designer Name | Role | Phone | + +------+ + | Pedrito Gutierrez MD | PCP | | + +------+ + Encounter Details +--------+---------+ + + + | Date | Type | Department | Care Team | Description | +--------+---------+ + + + | 09/23/ | Office | [facility] | Nathalia Arora | Spondylosis with | | 2006 | Visit | [facility] | [address] | Myelopathy, Lumbar | | | | [place] [address] [place], | Region; Herniated | | | | [address] Center for | [place] [address] | Lumbar | | | | Health and Healing, | | Intervertebral Disc | | | | | | L4-5; Neck Pain; | | | | Floor [place], [place] | | Fibromyalgia | | | | [address] | | syndrome 729.1 | | | | [phone] | | | +--------+---------+ + + + [...] Medicare Progress Note Date: 09/23/2006 Belinda Meehan [id number]. 1960 Start of Care: 06/23/2006 Referring Provider: [...] has increased her walking time at [facility] [place] [place] to 30-40 minutes daily, no t able [...]
--- OUTSIDE RECORDS SUMMARY | ~2020-01-25 | XMS | Encounter Summary ---
Demographics + + + | Address | [address] | | | [place] [address] | + + + | Home Phone [...] Team Providers + +------+ + | Care Supplier Quality Engineer Name | Role | Phone [...] Pavilion | | | | | | [place], [place] | | | | | | [address] | | | | | | [phone] | | | +--------+ + + + [...]
--- OUTSIDE RECORDS SUMMARY | ~2020-01-25 | XMS | Encounter Summary ---
Demographics + + + | Address | [address] | | | [place] [address] | + + + | Home Phone [...] Team Providers + +------+ + | Care Paperhanger Assistant Name | Role | Phone | [...] of this encounter Progress Notes Interface, Cost Recovery Technician In - 11/19/2005 3:09 AM PDT [place] [facility] [address] [place] [address] or May 09, 2003 Pedrito Gutierrez M.D. [address] [place] [address] RE: BELINDA MEEHAN MR #: [id number] Dear Dr. Gutierrez: I had the pleasure [...] this testing done through your clinic in [place]. I will plan to see her again [...] regarding her condition. Sincerely, Issac Meeks M.D. software validation technician, Division of Endocrinology, Diabetes, and Clinical Joint Machine Operator, Metabolic Disorders Clinic PBD / HS [id number] / [id number] / [id number] / Tdocumented in this encounter Plan of Treatment Not on filedocumented as of this encounter Visit Diagnoses Not on filedocumented in this encounter"
--- OUTSIDE RECORDS SUMMARY | ~2020-01-25 | XMS | Encounter Summary ---
Demographics + + + | Address | [address] | | | [place] [address] | + + + | Home Phone [...] Providers + +------+ + | Care Bilingual Counter Sales Retail Name | Role | Phone | [...] | phalanx of | [address] | [address] | | | | | left great | [place], | Phone: | | | | | toe, initial | [place] | [phone] | | | | | encounter | [address] | Fax: | | | | | | Phone: | [phone] | | | | | | [phone] | | | | | | | Fax: | | | | | | | [phone] | | + + + + + [...] + + | 11/14/ | Telephone | [facility] | Alanis, | Results, Imaging | | 2019 | | MEDICINE [address] | MD Petrona | | | | | [place], | [address] [place] | | | | | [place] [address] | [place] [address] | | | | | [phone] | [phone] | | | | | | | [...] results. Requesting referral to Dr. Strickland in [place], [place]. Already seeing him for her leg.El [...] [place] | | | | | | [place] [address] | | | | | | [phone] | | | | | | | [...]
--- OUTSIDE RECORDS SUMMARY | ~2020-01-25 | XMS | Encounter Summary ---
Demographics + + + | Address | [address] | | | [place] [address] | + + + | Home Phone [...] Team Providers + +------+ + | Care Airset Molder Name | Role | Phone | + +------+ + | Pedrito Gutierrez MD | PCP | | + +------+ + Encounter Details +--------+ + + + + | Date | Type | Department | Care Team | Description | +--------+ + + + + | 12/26/ | Telephone | [facility] Comprehensive | Lukasz Ogden, | | | 2007 | | Pain Center at | PhD [address] | | | | | [facility] | [place], [place] | | | | | [address] | [address] | | | | | [facility] for Health | [phone] | | | | | and Healing, | | | | | | Building | | | | | | Floor [place], [place] | | | | | | [address] | | | | | | [phone] | | | +--------+ + + + [...]
--- OUTSIDE RECORDS SUMMARY | ~2020-01-25 | XMS | Encounter Summary ---
Demographics + + + | Address | [address] | | | [place] [address] | + + + | Home Phone [...] Providers + +------+ + | Care Horticultural Nursery Assistant Name | Role | Phone | [...] Thoracic or | [place], | [address] | | | | | lumbosacral | Carlos Armijo MD | [place], | | | | | neuritis or | [address] | [place] | | | | | | ST [place] | [address] | | | | | radiculitis, | [place], [place] | Phone: | | | | | unspecified | [address] | [phone] | | | | | Procedures | Phone: | Fax: | | | | | [place] INJECT | [phone] | [phone] | | | | | ANES/STEROID | Fax: | | | | | | FORAMEN | [phone] | | | | | | LUMBAR/SACRA | | | | | | | L W IMG | | | | | | | GUIDE ,1 | | | | | | | LEVEL [place] | | | | | | [...] + + + + | 01/19/ | [facility] | [facility] | Carlos Hsieh | Lumbar radiculopathy | | 2015 | Encounter | MED CTR XRAY [address] | T, [address] | primarily right | | | | [address] [place] | [facility] [place] | | | | | [place] [address] | [id number] | | | | | [phone] | | | | | | | Warehouse Shift SupervisorKristyn | | | | | | jossy [...] TRIPP | | | | | | [place] [address] | | | | | | [phone] | | | | | | | [...] 01/19/2015 Bilateral Transforaminal Epidural Steroid Injections | GILDAE | | Diagnosis: Lumbar radiculopathy ICD-9 Code 724.4 Belinda Basilio | [facility] | | Shefali presents to the fluoroscopy suite for [facility] | | fluoroscopically-guided bilateral L5-S1 transforaminal [...] + | [facility] | [address] | [place], [place] | [phone] | | [facility] | | [address] | | | - IMAGING | | [...]
--- OUTSIDE RECORDS SUMMARY | ~2020-01-25 | XMS | Encounter Summary ---
Demographics + + + | Address | [address] | | | [place] [address] | + + + | Home Phone [...] Providers + +------+ + | Care Machine Worker Name | Role | Phone [...] | | 2006 | | Faculty at [place] | [address] [place] | | | | | for Health and | [facility] [place] | | | | | Healing [address] | [address] | | | | | [facility] for | [phone] | | | | | Health and Healing, | | | | | | [facility] | | | | | | [place], [place] | | | | | | [address] | | | | | | [phone] | | | +--------+ + + + [...]
--- OUTSIDE RECORDS SUMMARY | ~2020-01-25 | XMS | Encounter Summary ---
Demographics + + + | Address | [address] | | | [place] [address] | + + + | Home Phone [...] Providers + +------+ + | Care Manager Trust Name | Role | Phone | [...] | Transcriptions | + + | Interface, Knife Finisher In - 08/06/2005 2:06 AM PST | | [id number] | | [id number] GEOVANNI Barnes | | | | Date: 07/25/2005 | | | | Attending Surgeon: Chris Padgett M.D. | | | | Business Risk Analyst(s): Bandar Langley M.D. | | | [...] | | DT / HS | | [id number] / [id number] / [id number] / [id number] | | | | | | | | | | | | Electronically signed by Chris Padgett 08-05-2005 12:36:41 PM | + + documented in this encounter Visit Diagnoses Not on filedocumented in this encounter"
--- OUTSIDE RECORDS SUMMARY | ~2020-01-25 | XMS | Encounter Summary ---
Demographics + + + | Address | [address] | | | [place] [address] | + + + | Home Phone [...] Providers + +------+ + | Care Cardiology Technologist Name | Role | Phone | [...] | 11/16/ | Refill | [facility] | Alanis, | Medication Refill | | 2019 | | MEDICINE [address] | MD ePtrona | | | | | [place], | [address] | | | | | [place] [address] | [place] [address] | | | | | [phone] | | | | | | | [...] | | | | | [place] [address] | | | | | | [phone] | | | | | | | | +--------+---------+ + + + documented as of this encounter Visit Diagnoses Not on filedocumented in this encounter"
--- OUTSIDE RECORDS SUMMARY | ~2020-01-25 | XMS | Encounter Summary ---
Demographics + + + | Address | [address] | | | [place] [address] | + + + | Home Phone [...] + | 02/18/ | Refill | [facility] | Alanis, | Results, Imaging | | 2017 | | MEDICINE [address] | MD [place]rona | | | | | [place], | [address] [place] | | | | | [place] [address] | [place] [address] | | | | | [phone] | [phone] | | | | | | | [...] as needed Quantity Remainin Pharmacy: Angelina Figueroa Call/Mail/Order Management Specialist/Fax: fax Date of Last Refill: 09/22/17 Date [...] | | | | | [place] [address] | | | | | | [phone] | | | | | | | | +--------+---------+ + + + documented as of this encounter Visit Diagnoses Not on filedocumented in this encounter
--- OUTSIDE RECORDS SUMMARY | ~2020-01-25 | XMS | Encounter Summary ---
Demographics + + + | Address | [address] | | | [place] [address] | + + + | Home Phone [...] Providers + +------+ + | Care Paper Products Printer Name | Role | Phone | [...] + + | 09/14/ | Telephone | [facility] | Alanis, | Referral | | 2017 | | MEDICINE [address] [place] [address] | MD Petrona | | | | | [place], | [address] [facility] | | | | | [place] [address] | [place] [address] | | | | | [phone] | | | | | | | [...] | | | | | [place] [address] | | | | | | [phone] | | | | | | | | +--------+---------+ + + + documented as of this encounter Visit Diagnoses Not on filedocumented in this encounter"
--- OUTSIDE RECORDS SUMMARY | ~2020-01-25 | XMS | Encounter Summary ---
Demographics + + + | Address | [address] | | | [place] [address] | + + + | Home Phone [...] Providers + +------+ + | Care Fiber Technologist Name | Role | Phone | [...] as of this encounter Progress Notes Interface, Hawk Missile System Crewmember In - 07/09/2005 2:07 AM PST [id number] GEOVANNI Barnes Clinic Date: 07/03/2005 Clinic: Ms. [...] this operation. Chris Padgett M.D. ROSA / [id number] / [id number] / [id number] / [id number] Electronically signed by Chris Padgett 07-08-2005 01:45:20 PM documented i n this encounter Plan of Treatment Not on filedocumented as of this encounter Visit Diagnoses Not on filedocumented in this encounter"
--- OUTSIDE RECORDS SUMMARY | ~2020-01-25 | XMS | Encounter Summary ---
Demographics + + + | Address | [address] | | | [place] [address] | + + + | Home Phone [...] Team Providers + +------+ + | Care Ultrasound Supervisor Name | Role | Phone | [...] + + | 04/19/ | Telephone | [facility] | Alanis, | Lab Results | | 2018 | | MEDICINE [address] | MD [place]ron[place] | | | | | [place], | [address] [facility] | | | | | [place] [address] | [place] [address] | | | | | [phone] | [phone] | | | | | | | [...] | | | | | [place] [address] | | | | | | [phone] | | | | | | | | +--------+---------+ + + + documented as of this encounter Visit Diagnoses Not on filedocumented in this encounter"
--- OUTSIDE RECORDS SUMMARY | ~2020-01-25 | XMS | Encounter Summary ---
Demographics + + + | Address | [address] | | | [place] [address] | + + + | Home Phone [...] + +------+ + | Care Fire Protection Designer Name | Role | Phone | [...] + | 09/01/ | Telephone | [facility] | Alanis, | Sinus Pain | | 2018 | | MEDICINE [address] | MD [place]ron[place] | | | | | [place], | [address] [facility] | | | | | [place] [address] | [place] [address] | | | | | [phone] | [phone] | | | | | | | [...] | | | | | [place] [address] | | | | | | [phone] | | | | | | | | +--------+---------+ + + + documented as of this encounter Visit Diagnoses Not on filedocumented in this encounter"
--- OUTSIDE RECORDS SUMMARY | ~2020-01-25 | XMS | Encounter Summary ---
Demographics + + + | Address | [address] | | | [place] [address] | + + + | Home Phone [...] Providers + +------+ + | Care Body And Frame Technician Name | Role | Phone | [...] + + | 06/30/ | Telephone | [facility] | Alanis, | Other | | 2018 | | MEDICINE [address] | MD [place] | | | | | [place], | [address] [facility] | | | | | [place] [address] | [place] [address] | | | | | [phone] | | | | | | | [...] us of kidney, please fax order to [facility] elephone Encounter - Shalonda Mcdermott - 07/05/2018 12:12 PM PSTBrenda called to follow up on request, patient is very eager to get moving on this for hopes that it will ohelp with her pain. Please call patient to follow up at [phone]. Patient was informed that provider is out of the office until 07/06/2018.Electronically sig yesenia by Shalonda Mcdermott at 07/05/2018 12:14 PM PSTTelephone Encounter - Maggie Montoya LPN - 4:49 PM PSTPatient notified of comments/recommendations. States would like orde r for renal US at [facility]. Please advise elephone Encounter - Mary Kay Kuo - 06/30/2018 4:24 P M PSTPatient called, please advise. 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 Patient would like a call back to advise, . elephone Encounter - Ayla Quezada - 06/30/2018 1:50 PM PSTPatient called in stated she would like to talk to the nurse regarding her back issue. Please advise [phone] signed by Ayla Quezada at 06/30/2018 1:52 [...] | | | | | [place] [address] | | | | | | [phone] | | | | | | | [...]
--- OUTSIDE RECORDS SUMMARY | ~2020-01-25 | XMS | Encounter Summary ---
Demographics + + + | Address | [address] | | | [place] [address] | + + + | Home Phone [...] Providers + +------+ + | Care Jewel Blocker And Sawyer Name | Role | Phone | [...] as of this encounter Progress Notes Interface, Addiction Counselor In - 12/07/2005 3:08 AM [facility] [place] [address] [place], [place] [address] or January 31, 2003 Pedrito Gutierrez M.D. [address] [place] [address] RE: BELINDA MEEHAN MR #: [id number] Dear Dr. Gutierrez: I had the pleasure [...] She had surgery 5 days ago in [place] on her right hand and wrist, for [...] time to help minimize her travel to [place]. In the meantime, please feel free to contact me if you have other questions, concerns, or suggestions regarding her condition. Sincerely, Issac Meeks M.D. orange peel operator Division of Endocrinology, Diabetes, and Clinical Nutrition, Director of Metabolic Disorders Clinic MONIQUE / SHARIF [id number] / [id number] / [id number] / Tdocumented in this encounter Plan of Treatment Not on filedocumented as of this encounter Visit Diagnoses Not on filedocumented in this encounter"
--- OUTSIDE RECORDS SUMMARY | ~2020-01-25 | XMS | Encounter Summary ---
Demographics + + + | Address | [address] | | | [place] [address] | + + + | Home Phone [...] Team Providers + +------+ + | Care Paramedic Instructor Name | Role | Phone | [...] | | | | FAMILY | Rd [place], | | | | | | MEDICINE | [place] | | | | | | [address] | [address] | | | | | | [place] | Phone: | | | | | | [place], | [phone] | | | | | | [place] [address] | Fax: | | | | | | Phone: | [phone] | | | | | | [phone] | | | | | | | Fax: | | | | | | | [phone] | | +--------+--------+ + + + + [...] | (Primary Dx) | | | | [place] [facility] | [place], [place] | | | | | and Healing, | [address] | | | | | [facility] | [phone] | | | | | Floor [place], [place] | | | | | | [address] | | | | | | [phone] | | | +--------+---------+ + + + [...] Dr. Lukasz Ogden, and her PCP in [place]. She has sx of stress urinary incontinence [...] treated. She would like a urology or HOT PUNCH PRESS OPERATOR referral as appropriate. Labs ordered. See in [...] [place] | | | | | | [place] [address] | | | | | | [phone] | | | | | | Sincere [...] [facility] | [address] | [place], [place] | | | UNIV P[facility] - [facility] | | [address] | | + + + + + [...] | pg/mL | | | | | [facility]. | | | | + + + + + + + + | Specimen | + + | | + + + + + + + | Performing | Address | City/State/Zipcode | Phone Number | | Organization | | | | + + + + + | [facility] | [address] | [place] [address] | | | LABORATORY | | | [...] RLB ([facility]) | | | [facility] [place] [address] | | | [place] [address] | | + + + + + + + + | Performing | Address | City/State/Zipcode | Phone Number | | Organization | | | | + + + + + | [facility] | [address] | [place] [address] | | | LABORATORY | | | [...] RLB ([facility] [address] [facility]) | | | [facility] [place] [address] | | | [place] [address] | | + + + + + + + + | Performing | Address | City/State/Zipcode | Phone Number | | Organization | | | | + + + + + | [facility] | [address] | [place] [address] | | | LABORATORY | | | [...] Performed At | + + + | [address] Estimated GFR > 60 mL/min/1.73 sq m if non- | [facility] | | [address] Estimated GFR > 60 mL/min/1.73 sq m [...] AT [facility]PARTMENT OF | [address] | [place] [address] | | | PATHOLOGY | [address] | | | + + + + + | [facility] DEPARTMENT OF | [address] | [place] [address] | | | PATHOLOGY | [address] [...] | [facility] | [address] | [place] [address] | | | PATHOLOGY | [address] | | | + + + + + | [facility] | [address] | [place] [address] | | | PATHOLOGY | [address] | | | + + + + + documented in this encounter Visit Diagnoses + + | Diagnosis | + + | Status post bariatric surgery - Primary Bariatric surgery status | + + documented in this encounter"
--- OUTSIDE RECORDS SUMMARY | ~2020-01-25 | XMS | Encounter Summary ---
Demographics + + + | Address | [address] | | | [place] [address] | + + + | Home Phone [...] Team Providers + +------+ + | Care Blank Driller Name | Role | Phone | [...] + | 11/20/ | Refill | [facility] | Alanis, | Medication Refill | | 2017 | | MEDICINE [address] | MD [place] | | | | | [place], | [address] [facility] | | | | | [place] [address] | [place] [address] | | | | | [phone] | [phone] | | | | | | | [...] | | | | | [place] [address] | | | | | | [phone] | | | | | | | | +--------+---------+ + + + documented as of this encounter Visit Diagnoses Not on filedocumented in this encounter"
--- OUTSIDE RECORDS SUMMARY | ~2020-01-25 | XMS | Encounter Summary ---
Demographics + + + | Address | [address] | | | [place] [address] | + + + | Home Phone [...] Providers + +------+ + | Care Vocational Evaluator Name | Role | Phone | + +------+ + | Sulaiman Carrera MD | PCP | | + +------+ + Encounter Details +--------+ + + + + | Date | Type | Department | Care Team | Description | +--------+ + + + + | 06/30/ | Telephone | [facility] | Lukasz Ogden, | | | 2013 | | [address] | PhD [address] | | | | | Center for Health | [place], [place] | | | | | and Healing, | [address] | | | | | [facility] | [phone] | | | | | Floor [place], [place] | | | | | | [address] | | | | | | [phone] | | | +--------+ + + + [...]
--- OUTSIDE RECORDS SUMMARY | ~2020-01-25 | XMS | Encounter Summary ---
Demographics + + + | Address | [address] | | | [place] [address] | + + + | Home Phone [...] Providers + +------+ + | Care Healthcare Administrator Name | Role | Phone | [...] Lab findings, | | 2007 | | [place] [address] | [address] | teaching, guidance, | | | | Ave Mailcode: CH4S | [address] | and counseling | | | | [facility] | [place], [place] | | | | | and Healing, | [address] | | | | | [facility] | [phone] | | | | | [place], [place] | | | | | | [address] | | | | | | [phone] | | | +--------+ + + + [...]
--- OUTSIDE RECORDS SUMMARY | ~2020-01-25 | XMS | Encounter Summary ---
Demographics + + + | Address | [address] | | | [place] [address] | + + + | Home Phone [...] | | | | | Procedures | [place], [place] | [address] [facility] | | | | | CONSULT TO | [address] | [address] | | | | | SURGERY - | | Rd [place], | | | | | GENERAL | | [place] | | | | | | | [address] | | | | | | | Phone: | | | | | | | [phone] | | | | | | | Fax: | | | | | | | [phone] | +--------+--------+ + + + + Encounter Details +--------+ + + + + | Date | Type | Department | Care Team | Description | +--------+ + + + + | 08/31/ | Program Or Project Administrator | [facility] | Nuris Cardenas ANP | Hemorrhoid (Primary | | 2008 | | Center [address] | | Dx) | | | | [address] | | | | | | Mailcode: [id number] | | | | | | [facility] | | | | | | [place], [place] | | | | | | [address] | | | | | | [phone] | | | +--------+ + + + [...]
--- OUTSIDE RECORDS SUMMARY | ~2020-01-25 | XMS | Encounter Summary ---
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 Diagnosis: Voss I: 1. (296.32) Major depressive disorder, recurrent, moderate. 2. (309.24) Adjustment disorder with anxiety. 3. 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 Voss II: Deferred Voss III: abdominal pain, migraine headache, low back pain. Voss IV: low finances Voss V: GAF 50 Plan: Return in 2 weeks. Schedule 4 follow-up appointments. Check preparation for move and for niece's visit. Check [employer] gym, pacing, relaxation, activity, distraction. Check "Managin g Pain..." book. Continue cognitive/behavioral therapy. Total time spent with patient was approximately 45 minutes. LUKASZ CHARLES PHD [facility] [address] [facility], [address] [place] [address] documented in this encount er Plan of [...] | | | | | | ([facility]) Spondylosis | | | | | [...]
--- OUTSIDE RECORDS SUMMARY | ~2020-01-25 | XMS | Encounter Summary ---
Demographics + + + | Address | [address] | | | [place] [address] | + + + | Home Phone [...] Providers + +------+ + | Care Biodiesel Engineering Manager Name | Role | Phone [...] [id number] | | | | | | [place], [place] | | | | | | [address] | | | | | | [phone] | | | +--------+ + + + [...] | uIU/ml | | | | | [facility] | | | | | | Laboratories. | | | | + + + + + + + + | Specimen | + + | | + + + + + + + | Performing | Address | City/State/Zipcode | Phone Number | | Organization | | | | + + + + + | [facility] | [address] | [place] [address] | | | LABORATORY | | | | + + + + + documented in this encounter Visit Diagnoses Not on filedocumented in this encounter"
--- OUTSIDE RECORDS SUMMARY | ~2020-01-25 | XMS | Encounter Summary ---
Demographics + + + | Address | [address] | | | [place] [address] | + + + | Home Phone [...] Providers + +------+ + | Care Continuity Editor Name | Role | Phone | [...] | | | | | Procedures | [facility] | [place] for | | | | | CONSULT TO | Rd | Health and | | | | | NEUROLOGY | [place], [place] | Healing, | | | | | | [address] | Building [address], | | | | | | Phone: | 8th Floor | | | | | | [phone] | [place], [place] | | | | | | | [address] | | | | | | | Phone: | | | | | | | [phone] | | | | | | | Fax: | | | | | | | [phone] | +--------+--------+ + + + + Reason [...] | | | [facility] | [place], [place] | Weak; | | | | [address] | [address] | Migraine Headache | | | | [address] | [phone] | | | | | [facility] | | | | | | Physician's | | | | | | Pavilion [place], | | | | | | [place] [address] | | | | | | [phone] | | | +--------+---------+ + + + [...] I agree with documen janice by Dr. Stephens. Please see attached notes [...] (ciprofloxacin) Tramadol Morphine IM ( only in [facility]) made gut pain worse 08/27/06: Trial of oral MSIR caused leg swelling Clarithromycin Hives Mainly in the legs Current outpatient prescriptions : aspirin chewable (BABY ASPIRIN) 81 mg Oral Tablet, Chewa ble, 2 daily, Disp: , Rfl: buPROPion XL (WELLBUTRIN XL) 300 mg Oral Tablet Sustained Release 24 hr, take 1 tablet (300 mg) by oral route once daily, Disp: , Rfl: hnyxtethur-kpszueiymbrua-fjedlwcg (FIORICET) 50-325-40 mg Oral Tablet, take 2 [...] LE edema Results for BELINDA MEEHAN Molly (ID#[id number]) as of 03/01/2008 9:22:28 PM Ref. Range [...] K/cu mm 220 Results for BELINDA MEEHAN (ID#[id number]) as of 03/01/2008 9:22:28 PM Ref. Range [...] continue to discuss with her options at [facility] with, [facility]. RTC in 3 mos, earlier [...] + | [facility] DEPARTMENT OF | [facility] | [place] [address] | | | PATHOLOGY | [address] | | | + + + + + | [facility] DEPARTMENT OF | [facility] | [place] [address] | | | PATHOLOGY | [address] [...] Performed At | + + + | 899213 Estimated GFR > 60 mL/min/1.73 sq m if non- | [place] | | Chinese [id number] Estimated GFR > 60 mL/min/1.73 sq m if | DEPARTMENT OF | | Chinese GFR is estimated using the MDRD equation [...] | [facility] | [address] | [place] [address] | | | PATHOLOGY | [address] | | | + + + + + | [facility] | [address] | [place] [address] | | | PATHOLOGY | [address] [...] Lab) | | | [facility] [address] | | | [place] [address] | | + + + + + + + + | Performing | Address | City/State/Zipcode | Phone Number | | Organization | | | | + + + + + | [facility] | [address] | [place] [address] | | | LABORATORY | | | [...] | | [facility] [place] [address] | | | [place] [address] | | + + + + + + + + | Performing | Address | City/State/Zipcode | Phone Number | | Organization | | | | + + + + + | [facility] | [address] | [place] [address] | | | LABORATORY | | | [...]
--- OUTSIDE RECORDS SUMMARY | ~2020-01-25 | XMS | Encounter Summary ---
Demographics + + + | Address | [address] | | | [place] [address] | + + + | Home Phone [...] Providers + +------+ + | Care Airplane Pilot Commercial Name | Role | Phone | + +------+ + | Petrona Thapa | PCP | | | MD | | | + +------+ + Encounter Details +--------+---------+ + + + | Date | Type | Department | Care Team | Description | +--------+---------+ + + + | 12/18/ | Surgery | [facility] | Luther Brito MD | EGD | | 2018 | | MED CTR MP INTRA OP | [address] | | | | | [address] | [place], [place] | | | | | [place], [place] | [address] | | | | | [address] | [phone] | | | | | [phone] | | | +--------+---------+ + + + [...] You can't be awakened Date Last Reviewed: 04/01/201619994625-2586 [employer]. [address] [place] [address], [place] [id number]. All righ ts reserved. This information is [...] (See Comments) Confused and questionable for seizures Zygtjsqnfg-Ilbs-Gggqidvh Hives and Rash Cephalexin Hives Ciprofloxacin Hives [...] Signed by: Luther Brito MD 12/18/2017 [facility] Portions of this chart may have been created with [employer] voice recognition software. Occasi onal wrong-word or [...] Endoscopy Patient: Belinda Rodriguez : 1960 Acct: [id number] Exam Date: Monday, December 18, 2017 Doctor: [...] If unable to reach your physician, call [facility] Emergency Department at [address]. [address] Your doctor [...] Exams Patient: Belinda Rodriguez : 1960 Acct: [id number] Exam Date: Monday, December 18, 2017 Doctor: [...] If unable to reach your physician, call [facility] Emergency Department at [address] Your doctor [...] GABRIEL | | | | | | [place] [address] | | | | | | [phone] | | | | | | | [...] 12/18/2017 | PROVATION | | 10:49 AMMRN: [id number] #: [id number] of : | | | 9Admit Type: AmbulatoryAge: 57Room: [place] [address]Gender: FemaleNote | | | Status: FinalizedAttending MD: Luther Brito [facility] | | Upper GI endoscopyIndications: [...] the anesthesiologist and the | | | tv technician in the pre-procedure area in the [...] | appearing mucosa. This was traversed. The qxckr-hn-vuztdkp limb | | | was characterized by healthy appearing mucosa. The | | | jejunojejunal anastomosis was characterized by healthy | | | appearing mucosa. The eojocjwu-wk-ltynhzg limb was not examined | | | [...] AMScope Out: | | | 11:08:34 AM [facility], [address] | | | , [place] [address] | | | - Return to GI [...] |Scope Out: 11:08:34 AM | | | [facility], [facility] [place], [place] | | | [address] | | + + -+ + +---------+ [...] 12/18/2017 | PROVATION | | 10:43 AMMRN: [id number] #: [id number] of : | | | 9Admit Type: AmbulatoryAge: 57Room: [facility] 01Gender: FemaleNote | | | Status: FinalizedAttending MD: Luther Brito , [facility]cedure: | | | ColonoscopyIndications: Generalized abdominal [...] the anesthesiologist and the | | | tv technician in the pre-procedure area in the [...] Scope In: 11:12:28 AMScope Out: 11:56:57 AM [place] | | | [facility], [address] [place] [address] | | | [phone] | | | - Await pathology results. [...] |Scope Out: 11:56:57 AM | | | [facility], [address] [place], [place] | | | [address] | | + + -+ + +---------+ [...] specific diagnostic abnormality. | | | JVR:[facility]:C2NR GROSS DESCRIPTION: Received in five parts. | [...] | | slide preparation were performed by [employer], [facility] [place] | | | [facility], [facility] [address] [address] (Human Resources Clerk: Stephen Jacobson, | | | Joanna CLIA#: [id number]). Professional interpretation was performed | | | by [employer], [facility] Branch, [address] | | | [address] [place] [address] (Human Resources Clerk: Stephen Jacobson M.D.; CLIA#: [id number]). Diagnostician: Stephen Khan | | | Kavon [...]
--- OUTSIDE RECORDS SUMMARY | ~2020-01-25 | XMS | Encounter Summary ---
Demographics + + + | Address | [address] | | | [place] [address] | + + + | Home Phone [...] Providers + +------+ + | Care Procurement Professional Logistics Name | Role | Phone | + [...] | | | | [facility] | [place], [place] | | | | | [address] | [address] | | | | | [place], [place] | [phone] | | | | | [address] | | | | | | [phone] | | | +--------+ + + + [...] + + | Performing | Address | City/State/[facility] Hospitalcode | Phone Number | | Organization [...]
--- OUTSIDE RECORDS SUMMARY | ~2020-01-25 | XMS | Encounter Summary ---
[...] Team Providers + +------+ + | Care Dandy Tender Name | Role | Phone | [...] | y | Meniere's | Emmy-Jefft | MD Sid [address] | | | Required | | disease, | i, | [address] | | | | | unspecified | [place] | [address] | | | | | laterality | MD [address] | [place], | | | | | | [address] | [place] [address] | | | | | | [place], | Phone: | | | | | | [place] | [phone] | | | | | | [address] | Fax: | | | | | | Phone: | [phone] | | | | | | [phone] | | | | | | | Fax: | | | | | | | [phone] | | + + + + + + + Encounter Details +--------+ + + + + | Date | Type | Department | Care Team | Description | +--------+ + + + + | 12/20/ | Off-Site | [facility] | Emym-Jfefti, | Sensorineural | | 2020 | Visit | OTOLARYNGOLOGY [address] | MD [place] | hearing loss (SNHL) | | | | [address] | [address] [place] | of both ears | | | | [place] | [place] [address] | (Primary Dx); | | | | [address] | [phone] | Meniere's disease, | | | | [phone] | | unspecified | | | | | Ulysses Genao MD | laterality | | | | | [address] | | | | | | [address] [place], | | | | | | [place] [address] | | | | | | [phone] | | | | | | | [...] the neck area noted. Audiogram: Patient speech content strategy lead threshold is 30 dB bilaterally. Her speech [...] | | | | | [place] [address] | | | | | | [phone] | | | | | | | | +--------+---------+ + + + documented as of this encounter Visit Diagnoses + + | Diagnosis | + + | Sensorineural hearing loss (SNHL) of both ears - Primary | + + | Meniere's disease, unspecified laterality | + + documented in this encounter
--- OUTSIDE RECORDS SUMMARY | ~2020-01-25 | XMS | Encounter Summary ---
Demographics + + + | Address | [address] | | | [place] [address] [...] Providers + +------+ + | Care Collections Officer Name | Role | Phone | [...] [address] | | | | | | [place], [place] | | | | | | [address] | | | | | | [phone] | | | +--------+ + + + [...]
--- OUTSIDE RECORDS SUMMARY | ~2020-01-25 | XMS | Encounter Summary ---
Demographics + + + | Address | [address] | | | [place] [address] | + + + | Home Phone [...] Team Providers + +------+ + | Care Linoleum Printer Name | Role | Phone | [...] | Pain | Diagnoses | [place], | [place], | | | | Management | LBP (low | NIHARIKA Jean | Lukasz Rhodes, PhD | | | | | back pain) | [address] | | | | | DJD | [address] | Ave | | | | | (degenerativ | [place], [place] | [place], [place] | | | | | e joint | [address] | [address] | | | | | disease) of | | Phone: | | | | | knee Knee | | [phone] | | | | | pain Major | | Fax: | | | | | depressive | | [phone] | | | | | disorder, | [...] 11/23/ | Office | [facility] at [facility] | Lukasz Charles, | Major Depressive | | 2007 | Visit | [address] | PhD [address] | Disorder, Recurrent | | | | Center for Health | [place], [place] | Episode, Moderate | | | | and Healing, | [address] | ([facility]); LBP (Low Back | | | | | [phone] | Pain); Bilateral | | | | Floor [place], [place] | | Knee Pain; | | | | [address] | | Adjustment Disorder | | | | [phone] | | with Anxiety | +--------+---------+ + [...] frustra tion by being less active. Diagnosis: Pilot I: 1. (296.32) Major depressive disorder, recurrent, moderate. 2. (309.24) Adjustment disorder with anxiety. 3. (307.89) Chronic pain disorder associated with both psychological factors and a gene ral medical condition. Pilot II: Deferred Pilot III: abdominal pain, migraine headache, low back pain. Pilot IV: low finances Pilot V: GAF 55-60 Plan: return with next medical follow-up appointment. Check mood, abdominal pain, relaxat ion, activity, distraction. Continue cognitive/behavioral therapy. Total time spent with patient was approximately 45 minutes. LUKASZ CHARLES [facility] [address] [place] [address], [address] [place] [address] documented in this encount er Plan of [...]
--- OUTSIDE RECORDS SUMMARY | ~2020-01-25 | XMS | Encounter Summary ---
Demographics + + + | Address | [address] | | | [place] [address] | + + + | Home Phone [...] Providers + +------+ + | Care Cook Chef Name | Role | Phone | [...] | 10/11/ | Refill | [facility] | Alanis, | Medication Refill | | 2019 | | MEDICINE [address] | MD [place] | | | | | [place], | [address] | | | | | [place] [address] | [place] [address] | | | | | [phone] | [phone] | | | | | | | [...] | | | | | [place] [address] | | | | | | [phone] | | | | | | | | +--------+---------+ + + + documented as of this encounter Visit Diagnoses Not on filedocumented in this encounter"
--- OUTSIDE RECORDS SUMMARY | ~2020-01-25 | XMS | Encounter Summary ---
Demographics + + + | Address | [address] | | | [place] [address] | + + + | Home Phone [...] + +------+ + | Care Senior Ux Developer Name | Role | Phone | [...] | | abdominal | [place] | [address] [facility] | | | | | pain | Health & | [facility] | | | | | Procedures | Science | [address] [place], | | | | | REQUEST TO | University | [place] | | | | | SURGERY | [address] [facility] | [address] | | | | | SORTING GRAPPLE OPERATOR | [address] | Phone: | | | | | [place] | Rd | [phone] | | | | | EXPLORATORY | [place], [place] | Fax: | | | | | OF ABDOMEN | [address] | [phone] | | | | | [place] | | | | | | [...] | | | | | | [address] [place], | | | | | | | [place] | | | | | | | [address] | | | | | | | Phone: | | | | | | | [phone] | | | | | | | Fax: | | | | | | | [phone] | +--------+--------+ + + + + Encounter [...] | | | Center for Health | [place], [place] | | | | | and Healing, | [address] | | | | | Building [address], 6th | [phone] | | | | | Floor [place], [place] | | | | | | [address] | | | | | | [phone] | | | +--------+---------+ + + + [...] the resident s note. CHRIS RUANO MD [facility] [address] [facility], 6th [place] [address] Chris Peralta - 10:55 AM [...] not work at this time. Lives in [place], [place] FH: Noncontributory ROS: No recent fevers, [...] [facility] | [address] | [place] [address] | | | PATHOLOGY | [address] | | | + + + + + | [facility] | [address] | [place] [address] | | | PATHOLOGY | [address] [...]
--- OUTSIDE RECORDS SUMMARY | ~2020-01-25 | XMS | Encounter Summary ---
Demographics + + + | Address | [address] | | | [place] [address] | + + + | Home Phone [...] Providers + +------+ + | Care Switchboard Troubleshooter Name | Role | Phone | + [...] | Pain | Diagnoses | Miracle, | [place], | | | | Management | LBP (low | NIHARIKA Jean | Lukasz Rhodes, PhD | | | | | back pain) | [address] | [address] | | | | | DJD | [address] | Ave | | | | | (degenerativ | [place] | [place] | | | | | e joint | [address] | [address] | | | | | disease) of | | Phone: | | | | | knee Knee | | [phone] | | | | | pain Major | | Fax: | | | | | depressive | | [phone] | | | | | disorder, | [...] 04/28/ | Office | [facility] | Lukasz Charles, | Major Depressive | | 2007 | Visit | [address] | PhD [address] | Disorder, Recurrent | | | | [facility] | [place], [place] | Episode, Mild (HCC); | | | | and Healing, | [address] | LBP (Low Back | | | | | [phone] | Pain); Migraine | | | | Floor [place], [place] | | Headache | | | | [address] | | | | | | [phone] | | | +--------+---------+ + + + [...] scheduled to come here after surgery. Diagnosis: Gill I: 1. (296.31) Major depressive disorder, recurrent, mild. 2. (309.24) Adjustment disorder with anxiety. 3. (307.89) Chronic pain disorder associated with both psychological factors and a gene ral medical condition. Gill II: Deferred Gill III: abdominal pain, migraine headache, low back pain. Gill IV: low finances Gill V: GAF 55-60 Plan: return with next medical follow-up appointment. Check mood, pain, surgical recovery , relaxation, activity, distraction, eating. Ask about headaches, fainting, Thanksgiving. Continue cognitive/behavioral therapy. Total time spent with patient was approximately 45 minutes. LKUASZ CHARLES PHD [facility] [address] [facility], [address] [place] [address] documented in this encount Plan of Treatment + + +--------+ + + | Name | Type | Priori | Associated Diagnoses | Order Schedule | | | | ty | | | + + +--------+ + + | [place] PSYCHOTHERPY, | Procedures | Routin | Major Depressive | Ordered: 04/28/2008 | | OFFICE (01-70) | | e | Disorder, Recurrent | [...]
--- OUTSIDE RECORDS SUMMARY | ~2020-01-25 | XMS | Encounter Summary ---
Demographics + + + | Address | [address] | | | [place] [address] | + + + | Home Phone [...] Providers + +------+ + | Care Video Surveillance Technician Name | Role | Phone | [...] this encounter Progress Notes Interface, Director Of Materials In - 01/03/2006 3:02 AM [facility] [place] [address] [address], [place] [address] or November 01, 2002 Pedrito Gutierrez M.D. [facility] [address] [place] [id number] RE: BELINDA MEEHAN MR #: [id number] Dear Dr. Gutierrez: Belinda was seen in [...] be referred for bariatric surgery here at [facility]. We have several physicians who [...] Sincerely, Maurilio Estrada M.D. KRIS / SHARIF [id number] / [id number] / [id number] / Tdocumented in this encounter Plan of Treatment Not on filedocumented as of this encounter Visit Diagnoses Not on filedocumented in this encounter"
--- OUTSIDE RECORDS SUMMARY | ~2020-01-25 | XMS | Encounter Summary ---
Demographics + + + | Address | [address] | | | [place] [address] | + + + | Home Phone [...] Providers + +------+ + | Care Respiratory Medicine Physician Name | Role | Phone [...] | | | [facility] | [place], [place] | | | | | and [place], | [address] | | | | | [facility] , | [phone] | | | | | Floor [place], [place] | | | | | | [address] | | | | | | [phone] | | | +--------+ + + + [...]
--- OUTSIDE RECORDS SUMMARY | ~2020-01-25 | XMS | Encounter Summary ---
Demographics + + + | Address | [address] | | | [place] [address] | + + + | Home Phone [...] + +------+ + | Care Certified Nurse Practitioner Name | Role | Phone [...] [address] | | | | | [place], [place] | [place], [place] | | | | | [address] | [address] | | | | | [phone] | [phone] | | | | | | | [...]
--- OUTSIDE RECORDS SUMMARY | ~2020-01-25 | XMS | Encounter Summary ---
[...] Providers + +------+ + | Care Hydraulic Blocker Name | Role | Phone | [...] Densitometry | | MD Beto | Density [facility] | | | | | Osteoporosis | [address] | [address] | | | | | Procedures | Ave | Naeem Mcrae | | | | | CONSULT TO | [place], [place] | Rd Mailcode: | | | | | BONE | [address] | [address] | | | | | DENSITOMETRY | Phone: | Naeem De La Rosa | | | | | | [phone] | [place], [place] | | | | | | Fax: | [address] | | | | | | [phone] | Phone: | | | | | | | [phone] | | | | | | | Fax: | | | | | | | [phone] | +--------+--------+ + + + + Encounter Details +--------+---------+ + + + | Date | Type | Department | Care Team | Description | +--------+---------+ + + + | 08/23/ | Office | Endocrinology, | Sjh, Bmd Dexa | Other Osteoporosis | | 2007 | Visit | Diabetes and | [address] | (Primary Dx); | | | | Clinical Nutrition | [facility], | Symptomatic | | | | [address] | [place] [address] | Menopausal or Female | | | | [facility] Mailcode: | | Climacteric States; | | | | [address] | | Disorder of Bone | | | | [facility], [place] | | and Cartilage, | | | | [address] | | Unspecified | | | | [phone] | | | +--------+---------+ + + + [...] | | + +---------+--------+ + + | DE DXA BONE | Imaging | Routin | [...]
--- OUTSIDE RECORDS SUMMARY | ~2020-01-25 | XMS | Encounter Summary ---
Demographics + + + | Address | [address] | | | [place] [address] | + + + | Home Phone [...] Providers + +------+ + | Care Board Finisher Name | Role | Phone | [...]
--- OUTSIDE RECORDS SUMMARY | ~2020-01-25 | XMS | Encounter Summary ---
Demographics + + + | Address | [address] | | | [place] [address] | + + + | Home Phone [...] Providers + +------+ + | Care Iron Caster Name | Role | Phone | [...] | | Chronic | [place], | [address] | | | | | bilateral | [place] | Phone: | | | | | low back | [address] | [phone] | | | | | pain with | Phone: | Fax: | | | | | bilateral | [phone] | [phone] | | | | | sciatica | Fax: | | | | | | Procedures | [phone] | | | | | | 07/20 [...] + + | 07/18/ | Office | [facility] | Alanis, | Chronic bilateral | | 2020 | Visit | MEDICINE [address] | MD Petrona | low back pain with | | | | AVE [place], | [address] [facility] | bilateral sciatica | | | | [place] [address] | [place] [address] | (Primary Dx); Other | | | | [phone] | 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 Incontinence Supplies [facility] As directed 100 each [...] Allergen Reactions Ensure Diarrhea Food Diarrhea Lactose Slqeoembml-Tzt-Hinn-Codeine Other (See Comments) Balance problems Codeine Sulfate Nausea Only Food Allergy Formula Diarrhea Ensure Levofloxacin Hives, Itching and Rash Butalbital Ropinirole Amitriptyline Hcl Other (See Comments) Confused and questionable for seizures Relltluhxr-Pcjh-Aidjmzgy Rash duplicate Ihniuaahfi-Dtrh-Dpgtnitk Hives and Rash Cephalexin Hives Ciprofloxacin Hives and Rash Clarithromycin Hives and Rash Clindamycin Hcl Hives and Rash Doxycycline Rash Duloxetine Other (See Comments) Migraines and nausea Ketorolac Hives Levofloxacin Hives and Rash Morphine Swelling Penicillins Hives and Rash Ropinirole Hcl Hives Sulfamethoxazole-Trimethoprim Hives and Rash Tramadol Hcl Nausea Only FOLLOW-UP No follow-ups on file. Notes: 1. Parts of this documentwere created using [employer] speech recognition software. As a resu lt, [...] Petrona Thapa MD at 2019 1:02 PM Amishacumented in this encounter Plan of Treatment +--------+---------+ + + + | Date | Type | Specialty | Care Team | Description | +--------+---------+ + + + | 02/15/ | Office | Internal Medicine | Alanis, | | | 2019 | Visit | | MD [place]rona | | | | | | [address] [facility] [address] | | | | | | [place] [address] | | | | | | [phone] | | | | | | | [...] ST. | [address] | [place] | [phone] | | [facility] | | [address] | | | - LABORATORY | | [...] | | First dose on [facility] 10/15/17 at 1215 | | | [...]
--- OUTSIDE RECORDS SUMMARY | ~2020-01-25 | XMS | Encounter Summary ---
Demographics + + + | Address | [address] | | | [place] [address] | + + + | Home Phone [...] | | | | Mailcode: L223A | [place], [place] | | | | | [facility] | [address] | | | | | [address] [place], [place] | [phone] | | | | | [address] | | | | | | [phone] | | | +--------+ + + + [...]
--- OUTSIDE RECORDS SUMMARY | ~2020-01-25 | XMS | Encounter Summary ---
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 Epidural steroid injections are awhile call to schedule with Dr. Kylah SHEEHAN. documented in this encounter Progress Notes Delfina Molina - 06/28/2007 8:56 AM PSTFormatting of this note might be different from th e original. 06/28/2007 Belinda Meehan is a 47 y.o. female [facility] Comprehensive Pain Center Return [...] yes" , [facility] [ see's [...] be in bed so long. Son primary manager primary care. Current outpatient medications Medication Sig Dispense [...] Collection Time Resulting Agency 05/25/2007 4:06 PM [facility] DEPARTMENT OF RADIOLOGY Component Results [...] CENTER PAIN CENTER Mail code CH 4P [facility] [address] [facility] [address] Ailyn Bello 06/28/19 08 8:38 [...]
--- OUTSIDE RECORDS SUMMARY | ~2020-01-25 | XMS | Encounter Summary ---
Demographics + + + | Address | [address] | | | [place] [address] | + + + | Home Phone [...] Team Providers + +------+ + | Care Quebracho Tanner Name | Role | Phone | + [...] Medication requested | | 2007 | | [place] [address] | [address] | (sucralfate | | | | Ave Mailcode: CH4S | [facility] | (CARAFATE) 1 gram | | | | [facility] | [place], [place] | Oral Tablet) | | | | and Healing, | [address] | | | | | [facility] | [phone] | | | | | [place], [place] | | | | | | [address] | | | | | | [phone] | | | +--------+ + + + [...]
--- OUTSIDE RECORDS SUMMARY | ~2020-01-25 | XMS | Encounter Summary ---
Demographics + + + | Address | [address] | | | [place] [address] | + + + | Home Phone [...] Team Providers + +------+ + | Care Unhairer Name | Role | Phone | + [...] [address] | | | | | [place], [place] | [place], [place] | | | | | [address] | [address] | | | | | [phone] | [phone] | | | | | | | [...]
--- OUTSIDE RECORDS SUMMARY | ~2020-01-25 | XMS | Encounter Summary ---
Demographics + + + | Address | [address] | | | [place] [address] [...] Providers + +------+ + | Care Flexographic Press Plate Setter Name | Role | Phone | [...] + + | 09/12/ | Telephone | [facility] Comprehensive | Miranda Lambert, | Medication | | 2009 | | Pain Center at | ANP | Adjustment (rec's | | | | [place] | | for weaning due to | | | | [address] | | over use) | | | | [place] for [facility] | | | | | | and Healing, | | | | | | Building , | | | | | | Floor [place], [place] | | | | | | [address] | | | | | | [phone] | | | +--------+ + + + [...]
--- OUTSIDE RECORDS SUMMARY | ~2020-01-25 | XMS | Encounter Summary ---
Demographics + + + | Address | [address] | | | [place] [address] | + + + | Home Phone [...] MD | | | 2005 | | [place] [address] [address] | | | | | | S [facility] | | | | | | for Health and | | | | | | Healing, Building [address] | | | | | | [place], [place] | | | | | | [address] | | | | | | [phone] | | | +--------+ + + + [...]
--- OUTSIDE RECORDS SUMMARY | ~2020-01-25 | XMS | Encounter Summary ---
Demographics + + + | Address | [address] | | | [place] [address] | + + + | Home Phone [...] Team Providers + +------+ + | Care Twister Hand Name | Role | Phone | [...] [address] | | | | | [place] [facility] | [place], [place] | | | | | [address] | [address] | | | | | [address] | [phone] | | | | | [facility] | | | | | | Physician's | | | | | | Pavilion [place], | | | | | | [place] [address] | | | | | | [phone] | | | +--------+ + + + [...]
--- OUTSIDE RECORDS SUMMARY | ~2020-01-25 | XMS | Encounter Summary ---
Demographics + + + | Address | [address] | | | [place] [address] | + + + | Home Phone [...] Providers + +------+ + | Care Product Coordinator Name | Role | Phone | [...] | | | | Clinical Nutrition | [place], [place] | | | | | [address] | [address] | | | | | Loop Mailcode: OPC5 | [phone] | | | | | Outpatient Clinic | | | | | | [place], | | | | | | [place] [address] | | | | | | [phone] | | | +--------+ + + + [...]
--- OUTSIDE RECORDS SUMMARY | ~2020-01-25 | XMS | Encounter Summary ---
Demographics + + + | Address | [address] | | | [place] [address] | + + + | Home Phone [...] Providers + +------+ + | Care Mixer Runner Name | Role | Phone | [...] [address] | | | | | [facility] | [place], [place] | | | | | [address] | [address] | | | | | [address] | [phone] | | | | | [facility] | | | | | | Physician's | | | | | | Pavilion [place], | | | | | | [place] [address] | | | | | | [phone] | | | +--------+--------+ + + + [...]
--- OUTSIDE RECORDS SUMMARY | ~2020-01-25 | XMS | Encounter Summary ---
Demographics + + + | Address | [address] | | | [place] [address] | + + + | Home Phone [...] Team Providers + +------+ + | Care Biometry Teacher Name | Role | Phone | + +------+ + | Sulaiman Carrera MD | PCP | | + +------+ + Encounter Details +--------+ + + + + | Date | Type | Department | Care Team | Description | +--------+ + + + + | 02/08/ | Telephone | [facility] | Chris Padgett, | | | 2008 | | [place] [address] | [address] [facility] | | | | | [place] Mailcode: CH4S | [address] | | | | | Center [facility] | [place], [place] | | | | | and Healing, | [address] | | | | | [place] [address] | [phone] | | | | | Floor [place], [place] | | | | | | [address] | | | | | | [phone] | | | +--------+ + + + [...]
--- OUTSIDE RECORDS SUMMARY | ~2020-01-25 | XMS | Encounter Summary ---
Demographics + + + | Address | [address] | | | [place] [address] | + + + | Home Phone [...] + +------+ + | Care Director Of Teacher Education Name | Role | Phone | [...] of this encounter Progress Notes Interface, Acid Changer In - 12/25/2005 2:07 AM PDT [id number] GEOVANNI Barnes [id number] Clinic Date: 12/05/2005 Clinic: General Surgery Clinic PHONE CONSULTATION Subjective: Belinda Meehan has been under our care with a history of gastric bypass and recurrent abdominal pain, nondiagnostic on multiple tests. She was requesting a prescription for oxycodone which will be sent to her home at [address] [place] [address]. Oxycodone 5 mg, 5 to 10 p.o. [...] Padgett in clinic. Melisa Thorne / SHARIF [id number] / [id number] / [id number] / [id number] Electronically signed by Kenisha Melton 12-24-2005 01:41:04 PM documented i n this encounter Plan of Treatment Not on filedocumented as of this encounter Visit Diagnoses Not on filedocumented in this encounter"
--- OUTSIDE RECORDS SUMMARY | ~2020-01-25 | XMS | Encounter Summary ---
Demographics + + + | Address | [address] | | | [place] [address] [...] Providers + +------+ + | Care Ticket Counter Name | Role | Phone | + [...] | Osteopenia | | 2006 | | [place] [address] | [address] [facility] | | | | | [address] Mailcode: CH4S | [address] | | | | | [facility] | [place], [place] | | | | | and Healing, | [address] | | | | | [facility] | [phone] | | | | | Floor [place], [place] | | | | | | [address] | | | | | | [phone] | | | +--------+ + + + [...]
--- OUTSIDE RECORDS SUMMARY | ~2020-01-25 | XMS | Encounter Summary ---
Demographics + + + | Address | [address] | | | [place] [address] [...] Providers + +------+ + | Care Behavioral Instructor Name | Role | Phone | [...] (has been | | 2007 | | [place] [address] | [address] | in the bathroom | | | | Ave Mailcode: CH4S | [facility] | since one this | | | | [facility] | [place], [place] | morning with | | | | and Healing, | [address] | IBS/dumping syndrome | | | | Building 1, | [phone] | symptoms) | | | | Floor [place], [place] | | | | | | [address] | | | | | | [phone] | | | +--------+ + + + [...]
--- OUTSIDE RECORDS SUMMARY | ~2020-01-25 | XMS | Encounter Summary ---
Demographics + + + | Address | [address] | | | [place] [address] | + + + | Home Phone [...] Providers + +------+ + | Care Feeder Tender Name | Role | Phone | [...] [id number] | | | | | | [place], [place] | | | | | | [address] | | | | | | [phone] | | | +--------+ + + + [...]
--- OUTSIDE RECORDS SUMMARY | ~2020-01-25 | XMS | Encounter Summary ---
[...] [address] | | | | | [place] [facility] | [place], [place] | | | | | [address] | [address] | | | | | [address] | [phone] | | | | | [facility] | | | | | | Physician's | | | | | | Pavilion [place], | | | | | | [place] [address] | | | | | | [phone] | | | +--------+--------+ + + + [...]
--- OUTSIDE RECORDS SUMMARY | ~2020-01-25 | XMS | Encounter Summary ---
Demographics + + + | Address | [address] | | | [place] [address] | + + + | Home Phone [...] Providers + +------+ + | Care Manager Export Name | Role | Phone | + [...]
--- OUTSIDE RECORDS SUMMARY | ~2020-01-25 | XMS | Encounter Summary ---
Demographics + + + | Address | [address] | | | [place] [address] | + + + | Home Phone [...] Providers + +------+ + | Care Floor Installation Mechanic Name | Role | Phone | + +------+ + | Sulaiman Carrera MD | PCP | | + +------+ + Encounter Details +--------+ + + + + | Date | Type | Department | Care Team | Description | +--------+ + + + + | 06/30/ | Telephone | [facility] | Lukasz Ogden, | | | 2013 | | [address] | PhD [address] | | | | | Center for [facility] | [place], [place] | | | | | and Healing, | [address] | | | | | [facility] | [phone] | | | | | Floor [place], [place] | | | | | | [address] | | | | | | [phone] | | | +--------+ + + + [...]
--- OUTSIDE RECORDS SUMMARY | ~2020-01-25 | XMS | Encounter Summary ---
Demographics + + + | Address | [address] | | | [place] [address] | + + + | Home Phone [...] Providers + +------+ + | Care Sales Attendant Building Materials Name | Role | Phone | + [...] this encounter Progress Notes Interface, High School Biology Teacher In - 12/07/2005 3:08 AM [facility] [place] [address] [place], [place] [address] or January 31, 2003 Pedrito Gutierrez M.D. [address] [place] [address] RE: BELINDA MEEHAN MR #: [id number] Dear Dr. Gutierrez: I had the pleasure [...] She had surgery 5 days ago in [place] on her right hand and wrist, for [...] time to help minimize her travel to [place]. In the meantime, please feel free to contact me if you have other questions, concerns, or suggestions regarding her condition. Sincerely, Issac Meeks M.D. plant technician/control room operator Division of Endocrinology, Diabetes, and Clinical Nutrition, Director of Metabolic Disorders Clinic MONIQUE / SHARIF [id number] / [id number] / [id number] / Tdocumented in this encounter Plan of Treatment Not on filedocumented as of this encounter Visit Diagnoses Not on filedocumented in this encounter"
--- OUTSIDE RECORDS SUMMARY | ~2020-01-25 | XMS | Encounter Summary ---
Demographics + + + | Address | [address] | | | [place] [address] | + + + | Home Phone [...] order); | | | | Ave Mailcode: [facility] | [address] | Diarrhea | | | | [facility] | [place], [place] | | | | | and Healing, | [address] | | | | | [place] [address] [facility] | [phone] | | | | | [place], [place] | | | | | | [address] | | | | | | [phone] | | | +--------+ + + + [...]
--- OUTSIDE RECORDS SUMMARY | ~2020-01-25 | XMS | Encounter Summary ---
Demographics + + + | Address | [address] | | | [place] [address] | + + + | Home Phone [...] + +------+ + | Care Special Events Assistant Name | Role | Phone | + +------+ + | Pedrito Gutierrez MD | PCP | | + +------+ + Encounter Details +--------+ + + + + | Date | Type | Department | Care Team | Description | +--------+ + + + + | 01/11/ | Telephone | [facility] | Chris Padgett, | | | 2009 | | [place] [address] | [address] [facility] | | | | | [place] Mailcode: CH4S | [facility] | | | | | Center for Health | [place], [place] | | | | | and Healing, | [address] | | | | | Building | [phone] | | | | | Floor [place], [place] | | | | | | [address] | | | | | | [phone] | | | +--------+ + + + [...]
--- OUTSIDE RECORDS SUMMARY | ~2020-01-25 | XMS | Encounter Summary ---
Demographics + + + | Address | [address] | | | [place] [address] | + + + | Home Phone [...] + + | 05/18/ | Telephone | [facility] | Alanis, | Referral | | 2017 | | MEDICINE [address] | MD [place] | | | | | [place], | [address] [facility] | | | | | [place] [address] | [place] [address] | | | | | [phone] | [phone] | | | | | | | [...] PSTPatient notified that ref erral resubmitted to [facility] in [place], [place]. Patient will call to schedule appt in the next few days P STTelephone Encounter - Adriana Cantor - 05/18/2018 1:44 PM PSTPatient called wanting t o speak with the nurse. Patient stated a referral was placed for her for an MRI but she was calling to see if it had been switched so she could have it done in [place]. Please call patient to advise, . documented [...] | | | | | [place] [address] | | | | | | [phone] | | | | | | | | +--------+---------+ + + + documented as of this encounter Visit Diagnoses Not on filedocumented in this encounter"
--- OUTSIDE RECORDS SUMMARY | ~2020-01-25 | XMS | Encounter Summary ---
Demographics + + + | Address | [address] | | | [place] [address] | + + + | Home Phone [...] Providers + +------+ + | Care Liaison Inspection Laboratory Assistant Name | Role | Phone | [...] | | sciatica | [address] | [address] | | | | | Lumbar | [place], | Phone: | | | | | stenosis | [place] | [phone] | | | | | Opiate | [address] | Fax: | | | | | dependence, | Phone: | [phone] | | | | | continuous | [phone] | | | | | | (HCC) | Fax: | | | | | | | [phone] | | +--------+ + + + + + Reason for Visit + + + | Reason | Comments | + + + | Medication Refill | | + + + Encounter Details +--------+---------+ + + + | Date | Type | Department | Care Team | Description | +--------+---------+ + + + | 02/23/ | Office | [facility] | Emmy-Tacliffordti, | B12 deficiency | | 2017 | Visit | MEDICINE [address] [place] [address] | MD Petrona | (Primary Dx); | | | | [address] [place], | [address] [facility] | Chronic bilateral | | | | [place] [address] | [place] [address] | low back pain | | | | [phone] | [phone] | without sciatica; | | | | [...] AM PDTWe are referr ing you to [facility] in [place]. B12 shot today. documented in this encounter [...] interested in seein a pain clinic in [facility] as [place] resident. No drowsiness confusion or f alls. No alcohol or illicit drugs. She also has history of B12 deficiency and use take B12 injections for it on a monthly basi s. She is interested in getting one today. REVIEW OF SYSTEMS See [facility] for further details. Review of systems otherwise negative. PAST MEDICAL HISTORY Past Medical History: Diagnosis Date Arthritis Benign essential hypertension Blind left eye Chronic low back pain 01/04/2015 Chronic neck pain 01/04/2015 Chronic pain COPD (chronic obstructive pulmonary disease) ([facility]) Depression Diarrhea Dumping syndrome Fibromyalgia Hyperparathyroidism ([facility]) Hypothyroidism IBS (irritable bowel syndrome) Lumbar radiculopathy primarily right 01/04/2015 Meniere syndrome Migraine Migraines Obesity OLIVER (obstructive sleep apnea) Osteoarthritis, generalized Osteopenia Osteoporosis Peripheral neuropathy ([facility]) Rheumatoid arthritis ([facility]) Right arm pain 01/04/2015 RLS (restless legs syndrome) S/P lumbar fusion 01/04/2015 Scoliosis Stroke ([facility]) Syncope Tremor FAMILY HISTORY Family History [...] Reactions Levofloxacin Hives and Itching Amitriptyline Hcl Hsjofmaxhj-Wlnv-Dhxpupvp Cephalexin Ciprofloxacin Clarithromycin Clindamycin Hcl Codeine Sulfate [...] [place] | | | | | | [place] [address] | | | | | | [phone] | | | | | | | [...]
--- OUTSIDE RECORDS SUMMARY | ~2020-01-25 | XMS | Encounter Summary ---
Demographics + + + | Address | [address] | | | [place] [address] | + + + | Home Phone [...] Providers + +------+ + | Care Jewel Oliving Machine Operator Name | Role | Phone [...] Status Post | | 2007 | | [place] [address] | [address] [facility] | Bariatric Surgery | | | | Ave Mailcode: CH4S | [address] | (Primary Dx) | | | | [facility] | [place], [place] | | | | | and Healing, | [address] | | | | | Building 1, 6th | [phone] | | | | | Floor [place], [place] | | | | | | [address] | | | | | | [phone] | | | +--------+ + + + [...] | | | | | ng/mLPerformed by [facility] | | | | | | [facility],[address] | | | | | | Andrew, [facility] [place] [address] | | | | | | [phone] | | | | | | Sincere [...] [facility] | [address] | [place], [place] | | | [facility] | | [address] | | + + + + + [...] + + + | [facility] | [address] | [place] [address] | | | LABORATORY | | | [...] RLB ([facility]) | | | [facility] [place] [address] | | | [place] [address] | | + + + + + + + + | Performing | Address | City/State/Zipcode | Phone Number | | Organization | | | | + + + + + | [facility] | [address] | [place] [address] | | | LABORATORY | | | [...] RL ([facility] [facility]) | | | [facility] [place] [address] [address] [facility] | | | [place] [address] | | + + + + + + + + | Performing | Address | City/State/Zipcode | Phone Number | | Organization | | | | + + + + + | [facility] | [address] [facility] | [place] [address] | | | LABORATORY | | | [...] Performed At | + + + | [address] Estimated GFR > 60 mL/min/1.73 sq m if non- | [facility] | | [address] Estimated GFR > 60 mL/min/1.73 sq m [...] [facility] | [address] | [place] [address] | | | PATHOLOGY | [address] | | | + + + + + | [place] DEPARTMENT | [address] | [place] [address] | | | PATHOLOGY | [address] [...] [facility] | [address] | [place] [address] | | | PATHOLOGY | [address] | | | + + + + + | [facility] | [address] | [place] [address] | | | PATHOLOGY | [address] | | | + + + + + documented in this encounter Visit Diagnoses + + | Diagnosis | + + | Status post bariatric surgery - Primary Bariatric surgery status | + + documented in this encounter"
--- OUTSIDE RECORDS SUMMARY | ~2020-01-25 | XMS | Encounter Summary ---
Demographics + + + | Address | [address] | | | [place] [address] | + + + | Home Phone [...] Providers + +------+ + | Care Edge Burnisher Name | Role | Phone | [...] [address] | | | | | | [place], [place] | | | | | | [address] | | | | | | [phone] | | | +--------+--------+ + + + [...]
--- OUTSIDE RECORDS SUMMARY | ~2020-01-25 | XMS | Encounter Summary ---
[...] Providers + +------+ + | Care Senior Human Resources Representative Name | Role | Phone | + +------+ + | Petrona Thapa | PCP | | | MD | | | + +------+ + Encounter Details +--------+ + + + + | Date | Type | Department | Care Team | Description | +--------+ + + + + | 09/22/ | [facility] | [facility] | Alanis, | Impingement syndrome | | 2018 | Encounter | [facility] | MD Petrona | of right shoulder | | | | [address] [place] | [address] [facility] | | | | | [place], [place] | [place] [address] | | | | | [address] | [phone] | | | | | [phone] | | | +--------+ + + + [...] | | | | | [place] [address] | | | | | | [phone] | | | | | | | [...]
--- OUTSIDE RECORDS SUMMARY | ~2020-01-25 | XMS | Encounter Summary ---
Demographics + + + | Address | [address] | | | [place] [address] | + + + | Home Phone [...] | Visit | [facility] [address] | FUND ACCOUNTING MANAGER | syndrome 729.1 | | | | [address] | | (Primary Dx); | | | | Physician's | | Fibromyalgia | | | | Pavilion, 4th Floor | | | | | | [place], [place] | | | | | | [address] | | | | | | [phone] | | | +--------+---------+ + + + [...] + + +--------+ + + | FL INJECT TRIGGER | Procedures | Routin | [...]
--- OUTSIDE RECORDS SUMMARY | ~2020-01-25 | XMS | Encounter Summary ---
Demographics + + + | Address | [address] | | | [place] [address] | + + + | Home Phone [...] Team Providers + +------+ + | Care Revenue Stamp Cutter Name | Role | Phone | [...] | Management | Chronic | Taqueria Strong, FRAME GATE MORTISER OPERATOR | Rosi Armijo, ANP | | | | | neck pain | [address] | [address] | | | | | Low back | ISMAELE JOSSY | [place] | | | | | pain | [place] | [place], [place] | | | | | | [address] | [address] | | | | | | Phone: | | | | | | | [phone] | | | | | | | Fax: | | | | | | | [phone] | | +--------+--------+ + + + + Encounter Details +--------+---------+ + + + | Date | Type | Department | Care Team | Description | +--------+---------+ + + + | 08/09/ | Office | [facility] Comprehensive | Rosi Antonio, | Fibromyalgia | | 2013 | Visit | Pain Center at | ANP | syndrome 729.1 | | | | [facility] | | (Primary Dx); Major | | | | [address] | | depressive disorder, | | | | [facility] | | recurrent episode, | | | | and Healing, | | moderate (HCC); | | | | Building | | Adjustment disorder | | | | Floor [place], [place] | | with anxiety; LBP | | | | [address] | | (low back pain); | | | | [phone] | | Osteopenia; Chronic | | | [...] al. Diabetes Care. 28(1):89-94, 2004; Anca M, DIRECTOR OPERATIONS Drugs. [address] 1:25-30; discussion 45-6, [...] might be different fro m the original. [facility] Comprehensive Pain Center [...] never going to her local hospital in [place] for any medical evaluations. Belinda is very [...] and a pain drawing which I reviewed. TAWER Brief Pain Inventory: (ten= worst possible pain [...] regions, she notes pain in her right jewish, bilateral shoul crista muscles, left elbow, entire [...] right knee Lumbar fusion 05/2008, ' & [id number] with bone spur removals Appendectomy Cholecystectomy section [...] Hives Mainly in the legs Clindamycin Codeine Rrioksp-Hxijcmxlmd-Bsr-Caff Balance problems Fioricet W/Codeine (Hbwkqcqxxe-Gbuhvblomv-Sin-Cod) Keflex (Cephalexin) Morphine IM ( only in [facility]) made gut pain worse 08/27/06: Trial of oral MSIR caused leg swelling Penicillins Sulfa (Sulfonamide Antibiotics) Tramadol Ms. Meehan reports no side effects. The Review of Systems provided by Ms. Meehan and documented by the [facility] was reviewed. This data was [...] al. Diabetes Care. 28(1):89-94, 2004; Anca M, DIRECTOR OPERATIONS Drugs. [address] 1:25-30; discussion 45-6, [...] of which more than 50% was spent myxsn-bq-fttt in r eviewing pain questionnaire, medical record, [...] | + +---------+ + + | [facility] | | | | | RADIOLOGY | [...]
--- OUTSIDE RECORDS SUMMARY | ~2020-01-25 | XMS | Encounter Summary ---
Demographics + + + | Address | [address] | | | [place] [address] | + + + | Home Phone [...] Providers + +------+ + | Care Composite Bond Technician Name | Role | Phone | [...] Osteopenia | MD Beto | Density [facility] | | | | | Procedures | [address] | [address] | | | | | CONSULT TO | Ave | [address] | | | | | BONE | [place], [place] | Rd Mailcode: | | | | | DENSITOMETRY | [address] | RODERICK Eduardo | | | | | | Phone: | [address] | | | | | | [phone] | [place], [place] | | | | | | Fax: | [address] | | | | | | [phone] | Phone: | | | | | | | [phone] | | | | | | | Fax: | | | | | | | [phone] | +--------+--------+ + + + + Encounter Details +--------+ + + + + | Date | Type | Department | Care Team | Description | +--------+ + + + + | 07/24/ | Hospital | Endocrinology, | Sjh, Bmd Dexa | | | 2008 | Encounter | Diabetes and | [address] | | | | | Clinical Nutrition | [facility], | | | | | [address] | [place] [address] | | | | | [facility] Mailcode: | | | | | | [address] | | | | | | De [place], [place] | | | | | | [address] | | | | | | [phone] | | | +--------+ + + + [...] from the Results section by P Byron [[id number]] on | | | 04/17/2009 at 5:16 PM (File: [id number]) | | + + + BONE DENSITOMETRY [...]
--- OUTSIDE RECORDS SUMMARY | ~2020-01-25 | XMS | Encounter Summary ---
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 Diagnosis: [place] I: 1. (296.32) Major depressive disorder, recurrent, moderate. 2. (309.24) Adjustment disorder with anxiety. 3. (307.89) Chronic pain disorder associated with both psychological factors and a gene ral medical condition. [place] II: Deferred [place] III: abdominal pain, migraine headache, low back pain. [place] IV: low finances [place] V: GAF 50 Plan: Return in 2 weeks. Check pacing, relaxation, activity, distraction. Ask about coping with previous headache. Continue cognitive/behavioral therapy. Total time spent with patient was approximately 45 minutes. LUKASZ CHARLES [facility], [address]th [place] [address] documented in this encount er Plan of [...]
--- OUTSIDE RECORDS SUMMARY | ~2020-01-25 | XMS | Encounter Summary ---
[...] Providers + +------+ + | Care Loan Expeditor Name | Role | Phone | + +------+ + | Pedrito Gutierrez MD | PCP | | + +------+ + Encounter Details +--------+---------+ + + + | Date | Type | Department | Care Team | Description | +--------+---------+ + + + | 07/30/ | Office | Comprehensive Pain | Nathalia Arora | Cervical Spondylosis | | 2006 | Visit | [facility] | [address] | without Myelopathy | | | | [place] [address] | Clementina Winkler [place], | (Primary Dx); | | | | [facility] | [place] [address] | Spondylosis with | | | | Health and Healing, | | Myelopathy, Lumbar | | | | | | Region; Herniated | | | | Floor [place], [place] | | Lumbar | | | | [address] | | Intervertebral Disc; | | | | [phone] | | Unspecified Myalgia | | | [...] Medicare Progress Note Date: 07/30/2006 Belinda Meehan [id number]. 1960 Start of Care: 06/23/2006 Referring Provider: [...] Patient has multiple appts. At [facility] today, including a f/u regarding [...] + + +--------+ + + | [place] MANUAL THER | Procedures | Routin | [...] [place] THERAPEUTIC | Procedures | Routin | Cervical [...]
--- OUTSIDE RECORDS SUMMARY | ~2020-01-25 | XMS | Encounter Summary ---
Demographics + + + | Address | [address] | | | [place] [address] | + + + | Home Phone [...] Providers + +------+ + | Care Industrial Technician Name | Role | Phone | [...] this encounter Progress Notes Interface, Director Of Community Life In - 01/12/2005 12:26 AM PDT [id number] [facility] Date: 07/25/2004 Clinic: Rheumatology [...] weight that she has lost. At the [employer], a study was presented [...] 6 months. Caitlin Rivera M.S., F.N.P. / [id number] / [id number] / [id number] / [id number] cc: Pedrito Gutierrez M.D. [address] [place] [facility] [place] [address] Electronically signed by Caitlin Rivera 07-31-2004 12:02:37 PM documented i n this encounter Plan of Treatment Not on filedocumented as of this encounter Visit Diagnoses Not on filedocumented in this encounter"
--- OUTSIDE RECORDS SUMMARY | ~2020-01-25 | XMS | Encounter Summary ---
Demographics + + + | Address | [address] | | | [place] [address] | + + + | Home Phone [...] Providers + +------+ + | Care Event Manager Name | Role | Phone | [...] | Pain | Diagnoses | Miracle, | Dewey, | | | | Management | LBP (low | NIHARIKA Jean | Lukasz Rhodes, PhD | | | | | back pain) | [address] | [address] | | | | | DJD | [address] | Ave | | | | | (degenerativ | [place], [place] | [place], [place] | | | | | e joint | [address] | [address] | | | | | disease) of | | Phone: | | | | | knee Knee | | [phone] | | | | | pain Major | | Fax: | | | | | depressive | | [phone] | | | | | disorder, | [...] 11/23/ | Office | Pain Center at [facility] | Lukasz Charles, | Major Depressive | | 2007 | Visit | [address] | PhD [address] | Disorder, Recurrent | | | | [facility] | [place], [place] | Episode, Moderate | | | | and Healing, | [address] | ([facility]); LBP (Low Back | | | | | [phone] | Pain); Bilateral | | | | Floor [place], [place] | | Knee Pain; | | | | [address] | | Adjustment Disorder | | | | [phone] | | with Anxiety | +--------+---------+ + [...] as of this encounter Progress Notes Lukasz Chalres - 11/24/2007 9:00 AM PDTPROGRESS NOTE: Belinda [...] frustra tion by being less active. Diagnosis: [place] I: 1. (296.32) Major depressive disorder, recurrent, moderate. 2. (309.24) Adjustment disorder with anxiety. 3. (307.89) Chronic pain disorder associated with both psychological factors and a gene ral medical condition. [place] II: Deferred [place] III: abdominal pain, migraine headache, low back pain. [place] IV: low finances [place] V: GAF 55-60 Plan: return with next medical follow-up appointment. Check mood, abdominal pain, relaxat ion, activity, distraction. Continue cognitive/behavioral therapy. Total time spent with patient was approximately 45 minutes. LUKASZ CHARLES [facility] [address] [place] [address], [address] [place] [address] documented in this encount er Plan of [...]
--- OUTSIDE RECORDS SUMMARY | ~2020-01-25 | XMS | Encounter Summary ---
Demographics + + + | Address | [address] | | | [place] [address] | + + + | Home Phone [...] Providers + +------+ + | Care Property Field Adjuster Name | Role | Phone | [...] | 11/23/ | Office | [facility] Comprehensive | Delfina Molina, | LBP (Low Back Pain); | | 2007 | Visit | Pain Center at | ANP | Arthroplasty of the | | | | [place] | | Left Knee; | | | | [address] | | Spondylosis with | | | | [facility] | | Myelopathy, Lumbar | | | | and Healing, | | Region; Fibromyalgia | | | | | | syndrome 729.1; | | | | Floor [place], [place] | | Encounter for | | | | [address] | | Long-Term (Current) | | | | [phone] | | Use of Opioids; | | | | | | Major Depressive | | | | | | Disorder, Recurrent | | | | | | Episode, Moderate | | | | | | ([facility]); Adjustment | | | | | | [...] drawing has be completed, which I reviewed. [facility] Brief Pain Inventory: Right Now: 9 [...] Result Impression NAME: BELINDA MEEHAN MR #: [id number] DATE OF EXAM: [id number] PHYSICIAN: EMMA ROJAS [...] DISK BULGE. Transcribed By: Armaan Mata : [id number] : 1442 Approved By: Radiologist: Physical Examination: [...] seeing Nathalia Arora PT here at the [facility] to address her back [...] vs Hernia. 6. PT here at the [facility] available 7. Repeat TESI as needed. DELFINA MOLINA [facility] Mail code CH 4P [facility] Health and [address] [address] Ty Omalley - 8 9:12 [...]
--- OUTSIDE RECORDS SUMMARY | ~2020-01-25 | XMS | Encounter Summary ---
Demographics + + + | Address | [address] | | | [place] [address] | + + + | Home Phone [...] + +------+ + | Care Child Support Agent Name | Role | Phone [...]
--- OUTSIDE RECORDS SUMMARY | ~2020-01-25 | XMS | Encounter Summary ---
Demographics + + + | Address | [address] | | | [place] [address] | + + + | Home Phone [...] Team Providers + +------+ + | Care Crotch Piece Baster Name | Role | Phone | [...] | ANP | | | | | [facility] | | | | | | [address] | | | | | | [facility] | | | | | | and Healing, | | | | | | Building | | | | | | Floor [place], [place] | | | | | | [address] | | | | | | [phone] | | | +--------+ + + + [...]
--- OUTSIDE RECORDS SUMMARY | ~2020-01-25 | XMS | Encounter Summary ---
Demographics + + + | Address | [address] | | | [place] [address] | + + + | Home Phone [...] Team Providers + +------+ + | Care Admiralty Lawyer Name | Role | Phone | [...] | | | [facility] | [place], [place] | | | | | [address] | [address] | | | | | [address] | [phone] | | | | | Phys[facility]'s [facility]ilion | | | | | | Physician's | | | | | | Pavilion [place], | | | | | | [place] [address] | | | | | | [phone] | | | +--------+--------+ + + + [...]
--- OUTSIDE RECORDS SUMMARY | ~2020-01-25 | XMS | Encounter Summary ---
Demographics + + + | Address | [address] | | | [place] [address] [...] Providers + +------+ + | Care Water Filter Cleaner Name | Role | Phone | [...] | | Osteoporosis | i, | [address] | | | | | , | [place] | [place], | | | | | unspecified | , MD [address] | [place] [address] | | | | | osteoporosis | [address] | Phone: | | | | | type, | [place], | [phone] | | | | | unspecified | [place] | Fax: | | | | | pathological | [address] | [phone] | | | | | fracture | Phone: | | | | | | presence | [phone] | | | | | | Procedures | Fax: | | | | | | MD | [phone] | | | | | | ZOLEDRONIC | | | | | | | ACID 1MG | | | +--------+ + + + + + Encounter Details +--------+ + + + + | Date | Type | Department | Care Team | Description | +--------+ + + + + | 07/20/ | Orders Only | [facility] INTERNAL | Alanis, | Osteoporosis, | | 2017 | | MEDICINE [address] | MD [place]ron[place] | unspecified | | | | [address] [place], | [address] [facility] | osteoporosis type, | | | | [place] [address] | [place] [address] | unspecified | | | | [phone] | [phone] | pathological | | | | | [...] | | | | | [place] [address] | | | | | | [phone] | | | | | | | [...]
--- OUTSIDE RECORDS SUMMARY | ~2020-01-25 | XMS | Encounter Summary ---
Demographics + + + | Address | [address] | | | [place] [address] | + + + | Home Phone [...] + +------+ + | Care Market Research Coordinator Name | Role | Phone | [...] [address] | | | | | | [place], [place] | | | | | | [address] | | | | | | [phone] | | | +--------+ + + + [...]
--- OUTSIDE RECORDS SUMMARY | ~2020-01-25 | XMS | Encounter Summary ---
Demographics + + + | Address | [address] | | | [place] [address] | + + + | Home Phone [...] Providers + +------+ + | Care Painter Plate Name | Role | Phone | + [...] | | | | | Encounter | [place], [place] | [place] | | | | | for | [address] | [address] | | | | | long-term | | Phone: | | | | | (current) | | [phone] | | | | | use of other | | Fax: | | | | | medications | | [phone] | | | | | LBP (low [...] | Office | Pain Center at [facility] | Lukasz Charles, | Major depressive | | 2012 | Visit | [address] | PhD [address] | disorder, recurrent | | | | [facility] | [place], [place] | episode, moderate | | | | and Healing, | [address] | ([facility]) (Primary Dx); | | | | | [phone] | LBP (low back pain); | | | | Floor [place], [place] | | Fibromyalgia; | | | | [address] | | Adjustment disorder | | | | [phone] | | with anxiety | +--------+---------+ + [...] who recommended that she return to [facility] for pain assessment and treatment. [...] taking advantage of her. [facility] but she is [...] some changes in her living situation. Diagnosis: [place] I: 1. (296.32) Major depressive disorder, recurrent, moderate. 2. (309.24) Adjustment disorder with anxiety. [place] II: Deferred [place] III: abdominal pain, migraine headache, low back pain, fibromyalgia. [place] IV: low finances [place] V: GAF 55-60 Plan: return in 1 month. Check mood, pain, activity. Ask about visiting with Dr. Montero, spinal cord stimulator, any changes at home. Continue cognitive/behavioral therapy. Total time spent with patient was approximately 50 minutes. LUKASZ CHARLES PHD [facility] [address] [place] [address] And [facility], [address] [place] [address] documented in this en counter Plan of [...]
--- OUTSIDE RECORDS SUMMARY | ~2020-01-25 | XMS | Encounter Summary ---
Demographics + + + | Address | [address] | | | [place] [address] | + + + | Home Phone [...] Providers + +------+ + | Care Paint Striping Machine Operator Name | Role | Phone | + +------+ + | Crystal Gutierrez MD | PCP | | + +------+ + Encounter Details +--------+ + + + + | Date | Type | Department | Care Team | Description | +--------+ + + + + | 09/14/ | Procedure - | [facility] Division of | Endoscopy, Gi | [...] [address] | | | | | | [place], [place] | | | | | | [address] | | | | | | [phone] | | | +--------+ + + + [...] + + + | PROCEDURES:PANENDOSCOPY (EGD) CPT: 73624. PERSONNEL:THE | | | ATTENDING PHYSICIAN WAS [...] AM PDT | | PROCEDURES:PANENDOSCOPY (EGD) CPT: [id number]. | | PERSONNEL:THE ATTENDING PHYSICIAN WAS PRESENT [...]
--- OUTSIDE RECORDS SUMMARY | ~2020-01-25 | XMS | Encounter Summary ---
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 2. Continue with [place] 10/325 1 tablet as needed for activity [...] Belinda Meehan is a 46 y.o. female [facility] Comprehensive Pain Center Return [...] able to see Dr Gutierrez yet b nc does have and appointment next week to [...] ev eduardo 72 hours. 2. Continue with [place] 10/325 1 tablet as needed for activity related pain NTE 3 per day. 3. Continue with pain psychology and physical therapy. 4. Follow up in two weeks to review medication management 5. Keep neurology evaluation as able with insurance aurthorization.- migraine headache eval uation 6. PCP to assess LE edema/swelling. DELFINA MOLINA [facility] Mail code CH 4P [facility] [address] [facility] [address] Ailyn Foster 09/10/19 07 12:20 [...] today? yes documented in this [facility] er Plan of Treatment Not on filedocumented [...]
--- OUTSIDE RECORDS SUMMARY | ~2020-01-25 | XMS | Encounter Summary ---
Demographics + + + | Address | [address] | | | [place] [address] | + + + | Home Phone [...] Team Providers + +------+ + | Care Tone Artist Apprentice Name | Role | Phone | [...] 12/04/ | Office | Pain Center at [facility] | Lukasz Charles, | Major Depressive | | 2006 | Visit | [address] | PhD [address] | Disorder, Recurrent | | | | [facility] | [place], [place] | Episode, Moderate | | | | and Healing, | [address] | ([facility]); Spondylosis | | | | Building | [phone] | with Myelopathy, | | | | Floor [facility] [place] | | Lumbar Region; Left | | | | [address] | | Knee Pain; | | | | [phone] | | Adjustment Disorder | | | [...] is optimistic about her knee surgery. Diagnosis: [place] I: 1. (296.32) Major depressive disorder, recurrent, moderate. 2. (309.24) Adjustment disorder with anxiety. 3. (307.89) Chronic pain disorder associated with both psychological factors and a gene ral medical condition. [place] II: Deferred [place] III: abdominal pain, migraine headache, low back pain. [place] IV: low finances [place] V: GAF 55-60 Plan: Return in 3 months. Check mood, knee surgery, pacing, relaxation, activity, distraction. Continue cognitive/behavioral therapy. Discuss need for further sessions. Total time spent with patient was approximately 45 minutes. LUKASZ CHARLES PHD [facility] [address] [facility], [address] [place] [address] documented in this encount er Plan of [...]
--- OUTSIDE RECORDS SUMMARY | ~2020-01-25 | XMS | Encounter Summary ---
Demographics + + + | Address | [address] | | | [place] [address] | + + + | Home Phone [...] + +------+ + | Care Director Of Group Counseling Program Name | Role | Phone | + [...] | | | | Clinical Nutrition | [place], [place] | | | | | [address] | [address] | | | | | Loop Mailcode: OPC5 | [phone] | | | | | Outpatient Clinic | | | | | | [facility] | | | | | | [place] [address] | | | | | | [phone] | | | +--------+ + + + [...] [facility] | [address] | [place] [address] | | | PATHOLOGY | [address] | | | + + + + + | [facility] | [facility] | [place] [address] | | | PATHOLOGY | [address] | | | + + + + + documented in this encounter Visit Diagnoses Not on filedocumented in this encounter"
--- OUTSIDE RECORDS SUMMARY | ~2020-01-25 | XMS | Encounter Summary ---
Demographics + + + | Address | [address] | | | [place] [address] | + + + | Home Phone [...] Providers + +------+ + | Care Full Stack Java Developer Name | Role | Phone [...] Only | Diabetes and | [address] | | | | | Clinical Nutrition | [place], [place] | | | | | [address] | [address] | | | | | Loop Mailcode: OPC5 | [phone] | | | | | Outpatient Clinic | | | | | | [facility] | | | | | | [place] [address] | | | | | | [phone] | | | +--------+ + + + [...] [facility] | [address] | [place], [place] | | | UNIV PTH - INTFC | | [address] | | + + + + + HEMOGLOBIN A1C (05/31/2002 3:21 PM PST) + + + + + + | Component | Value | Ref Range | Performed | Pathologist | | | | | At | Signature | + + + + + + | HEMOGLOBIN | 6.0Comment: Test | <7.1 % | | | | A1C | performed by [facility] | | | | | | [facility] [...] + + | [facility] | [address] | [place] [address] | | | LABORATORY | | | [...] + + | [facility] DEPARTMENT OF | [address] | [place] [address] | | | PATHOLOGY | [address] | | | + + + + + | [facility] DEPARTMENT OF | [address] | [place] [address] | | | PATHOLOGY | [address] [...] [facility] | [address] | [place] [address] | | | PATHOLOGY | [address] | | | + + + + + | [facility] | [address] [facility] | [place] [address] | | | PATHOLOGY | [address] | | | + + + + + documented in this encounter Visit Diagnoses Not on filedocumented in this encounter"
--- OUTSIDE RECORDS SUMMARY | ~2020-01-25 | XMS | Encounter Summary ---
Demographics + + + | Address | [address] | | | [place] [address] | + + + | Home Phone [...] Providers + +------+ + | Care Institute Scientist Name | Role | Phone | [...] | | Order | Loop Physician's | [place], [place] | | | | | Sharmila, [facility] floor | [address] | | | | | [place], [place] | [phone] | | | | | [address] | | | | | | [phone] | | | +--------+ + + + [...]
--- OUTSIDE RECORDS SUMMARY | ~2020-01-25 | XMS | Encounter Summary ---
Demographics + + + | Address | [address] | | | [place] [address] | + + + | Home Phone [...] Providers + +------+ + | Care Amusement Or Recreation Card Checker Name | Role | Phone | [...] + + | 07/19/ | Telephone | [facility] | Alanis, | Lab Results | | 2019 | | MEDICINE [address] | MD [place] | | | | | [place], | [address] [facility] | | | | | [place] [address] | [place] [address] | | | | | [phone] | | | | | | | [...] Telephone Encounter - Maggie Montoya LPN - 07/19/2019 4:56 PM PSTLeft message on patient's voicemail regarding lab results with commentElectronically signed by TRUDI Infante t 07/19/2019 4:56 PM PSTTelephone Encounter - Maggie Montoya LPN - 07/19/2019 4:56 PM PST- ---- [...] | | | | | [place] [address] | | | | | | [phone] | | | | | | | | +--------+---------+ + + + documented as of this encounter Visit Diagnoses Not on filedocumented in this encounter"
--- OUTSIDE RECORDS SUMMARY | ~2020-01-25 | XMS | Encounter Summary ---
Demographics + + + | Address | [address] | | | [place] [address] | + + + | Home Phone [...] Providers + +------+ + | Care Forest Firefighter Name | Role | Phone | + [...] | | | | | | | [address] | | | | | | | [address] | | | | | | | Pavilion | | | | | | | [place], [place] | | | | | | | [address] | | | | | | | Phone: | | | | | | | [phone] | | | | | | | Fax: | | | | | | | [phone] | +--------+--------+ + + + + Encounter Details +--------+ + + + + | Date | Type | Department | Care Team | Description | +--------+ + + + + | 02/22/ | Hospital | [facility] [address] | Hai Hoyos, | | | 2008 | Encounter | [address] | | | | | | [address] | | | | | | [place], | | | | | | [place] [address] | | | | | | [phone] | | | +--------+ + + + [...] Course: Patient was admitted to [facility] short stay surgery. Patient [...] business hours at or page the orthopedist professor of communication and writing after regular business hours at [phone]. If you have any of the following: [...] Follow Up Tests: (Tests at [facility] must be entered into [employer]) none Condition On Discharge: stable Vital Signs [...] Discharging Attending: Hai Hoyos MDElectronically signed by NGUYNỄ Lr 02/22/2009 9:59 AM PDTdocumented in this [...] Course: Patient was admitted to [facility] short stay surgery. Patient [...] business hours at or page the orthopedist professor of communication and writing after regular business hours at [phone]. If you have any of the following: [...] Follow Up Tests: (Tests at [facility] must be entered into [...] Car Accompanied by: Family/Responsible Republican Discharge Nurse: LONI KOWALSKI RN Date: 02/22/2009 [...] [facility] | [address] | [place] [address] | | | PATHOLOGY | [address] [...] [facility] | [address] | [place] [address] | | | PATHOLOGY | [address] [...] | | | | | performed at [facility] | | | | | | St. [...] [facility] | [address] | [place] [address] | | | PATHOLOGY | [address] [...] [facility] | [address] | [place] [address] | | | PATHOLOGY | [address] [...] | | | | | performed at [facility] | | | | | | St. [...] [facility] | [address] | [place] [address] | | | PATHOLOGY | [address] [...] [facility] | [address] | [place] [address] | | | PATHOLOGY | [address] [...] Lab) | | | | | | [facility] | | | | | | [address] [place] | | | | | | [address] | | | | | | [place] [address] | | | | + + + + + + + + | Specimen | + + | | + + + + + + + | Performing | Address | City/State/Zipcode | Phone Number | | Organization | | | | + + + + + | [facility] | [address] | [place] [address] | | | PATHOLOGY | [address] [...] Performed At | + + + | [id number] | | | [id number] | | | [place] [id number] | | | Date: 02/22/2009 Attending Surgeon: | | | Hai Hoyos MD Registered Nurse Cardiac Telemetry(s): | | | Shantel Whipple Preoperative | | | Diagnosis(es): Left symptomatic scapula lesion. Postoperative | | | Diagnosis(es): Left symptomatic scapula lesion. Procedures | | | Performed: 1. Curettage and bone grafting of the left scapular | | | lesion. 2. Open biopsy, left scapular lesion. | | | Donna Clancy served as my transition assistant because no other qualified | | [...] | aforementioned. MD ARTIS Wei / SHARIF [id number] / | | | [id number] / [id number] / | | + + + + + | Procedure Note | + + | Hai Hoyos MD - 02/22/2009 12:00 AM PDT [id number] | | [id number] GE[place]NI [place] | | [id number] Date: 02/22/2009 Attending Surgeon: Hai | | MD Romain Registered Nurse Cardiac Telemetry(s): Raj Whipple. Preoperative | | Diagnosis(es):Left symptomatic scapula lesion. Postoperative Diagnosis(es):Left | | symptomatic scapula lesion. Procedures Performed:1. Curettage and bone grafting of | | the left scapular lesion.2. Open biopsy, left scapular lesion. Donna Clancy | | served as my transition assistant because no other qualified help wasavailable. [...] plan is as aforementioned. CHARU Wei / [id number] / [id number] / [id number] /D: | | 02/22/2009T: 02/22/2009 | | [...] |Hai Hoyos MD | |ZA / | |[id number] / [id number] / [id number] / | | | | | | [...] decalcification | | | | | | performedJKK/JHNOATHAN/rdl | | | | | | My [...] [facility] DEPARTMENT OF | [address] | [place] [address] | | | PATHOLOGY | [address] | | | + + + + + | [facility] DEPARTMENT OF | [facility] | [place] [address] | | | PATHOLOGY | [address] [...]
--- OUTSIDE RECORDS SUMMARY | ~2020-01-25 | XMS | Encounter Summary ---
Demographics + + + | Address | [address] | | | [place] [address] | + + + | Home Phone [...] Team Providers + +------+ + | Care Scarfer Operator Name | Role | Phone | [...] | | | Metabolism | bypass | [address] | [address] | | | | | Hypovitamino | [address], | Ave | | | | | sis D [address]12 | [address] | [place], [place] | | | | | nutritional | [place], [place] | [address] | | | | | deficiency | [address] | Phone: | | | | | Other | Phone: | [phone] | | | | | protein-jose manuel | [phone] | Fax: | | | | | nick | Fax: | [phone] | | | | | malnutrition | [phone] | | | | | | Weight | | | | | | | gain | | | | | | | Procedures | | | | | | | CONSULT TO | | | | | | | ENDO | | | | | | | [address] | | | | | | | [address] | | | +--------+--------+ + + + [...] [facility] | [place], [place] | Metabolic syndrome X | | | | [address] | [address] | 250.80; Essential | | | | [address] | [phone] | hypertension 401.9; | | | | [facility] | | IGT (impaired | | | | Physician's | | glucose tolerance) | | | | Pavilion [place], | | | | | | [place] [address] | | | | | | [phone] | | | +--------+---------+ + + + [...] in the pain center her at [facility], so she is hoping to find an [...] Hives Mainly in the legs Clindamycin Codeine Nzalvce-Ljwbysvrwk-Klh-Caff Balance problems Fioricet W/Codeine (Uawexfaitz-Vwegpijkuu-Tky-Cod) Keflex (Cephalexin) Morphine IM ( only in [facility] [...] U/L 41 ANION GAP 8 VITAMIN B12, [id number] pg/ml >2000 (H) HEMOGLOBIN A1C <=5.6 % [...] SERUM 15.0-85.0 pg/ml 222.9 (H) VITAMIN B12, [id number] pg/ml > 2000 HEMOGLOBIN A1C <=5.6 % [...]
--- OUTSIDE RECORDS SUMMARY | ~2020-01-25 | XMS | Encounter Summary ---
[...] Providers + +------+ + | Care Asset Protection Specialist Name | Role | Phone [...] + | 12/26/ | Refill | [facility] | Alanis, | Medication Refill | | 2017 | | MEDICINE [address] | MD [place] | | | | | [place], | [address] [facility] | | | | | [place] [address] | [place] [address] | | | | | [phone] | [phone] | | | | | | | [...] | | | | | [place] [address] | | | | | | [phone] | | | | | | | | +--------+---------+ + + + documented as of this encounter Visit Diagnoses Not on filedocumented in this encounter"
--- OUTSIDE RECORDS SUMMARY | ~2020-01-25 | XMS | Encounter Summary ---
Demographics + + + | Address | [address] | | | [place] [address] | + + + | Home Phone [...] Providers + +------+ + | Care Wash Driller Helper Name | Role | Phone [...] | | | 2004 | Registratio | [facility] | [address] | | | | n | [address] Mailcode: [id number] | [place], [place] | | | | | [place], [place] | [address] | | | | | [address] | [phone] | | | | | [phone] | | | +--------+ + + + [...] OF | [address] | [place] [address] | | | PATHOLOGY | [address] | | | + + + + + | [facility] DEPARTMENT OF | [address] | [place] [address] | | | PATHOLOGY | [address] [...] | [facility] DEPARTMENT OF | [address] [facility] | [place] [address] | | | PATHOLOGY | [address] | | | + + + + + | [place] DEPARTMENT OF | [address] [facility] | [place] [address] | | | PATHOLOGY | [address] [...] | + + + + + | [facility] | [address] | [place] [address] | | | LABORATORY | | | | + + + + + documented in this encounter Visit Diagnoses Not on filedocumented in this encounter"
--- OUTSIDE RECORDS SUMMARY | ~2020-01-25 | XMS | Encounter Summary ---
Demographics + + + | Address | [address] | | | [place] [address] | + + + | Home Phone [...] Providers + +------+ + | Care Bench Hand Machine Name | Role | Phone | [...] + + | 03/02/ | Office | [facility] | Emmy-Tacliffordti, | Neck pain on right | | 2018 | Visit | MEDICINE [address] | MD [place] | side (Primary Dx); | | | | [address] [place], | [address] [place] | Primary stabbing | | | | [place] [address] | [place] [address] | headache; | | | | [phone] | [phone] | Non-intractable | | | | | [...] Medical Student - 03/02/2018 9:30 AM PDT [facility] PROGRESS NOTE Pt. Name/Age/: Belinda Meehan 58 y.o. 1960 Med. Record Number: [id number] HPI: Belinda Meehan is a 58 y.o. [...] [facility] MEDICAL PROCEDURE UNIT Allergies Allergen Reactions Levofloxacin Hives,Itching,Rash Twutdmekzm-Syuf-Lyawckqb Hives,Rash Cephalexin Hives Ciprofloxacin Hives,Rash Clarithromycin Hives,Rash [...] | | | | | | [address] [facility] [address] | | | | | | [place] [address] | | | | | | [phone] | | | | | | | [...] mL/min/1.73m2 | [facility] | | | [place] | RATE,ESTIMATED | | MEDICAL | | | | mL/min/1.48e0Crpu than | | CENTER - | | [...] [address] | [place] | [phone] | | [facility] | | [address] | | | - LABORATORY | | [...] + | [address] | [address] | [place], [place] | [phone] | | [facility] | | [address] | | | - LABORATORY | | [...] LUDWIG. | [address] | [place] | [phone] | | [facility] | | [address] | | | - LABORATORY | | [...]
--- OUTSIDE RECORDS SUMMARY | ~2020-01-25 | XMS | Encounter Summary ---
Demographics + + + | Address | [address] | | | [place] [address] | + + + | Home Phone [...] Providers + +------+ + | Care Accounts Receivable Administrator Name | Role | Phone | [...] | Center at [facility] [address] | FIRE SUPERVISOR [address] | | | | | [address] | [facility] [address] | | | | | for Health and | [place], [place] | | | | | [place] [address] | [address] | | | | | [place], [place] | [phone] | | | | | [address] | | | | | | [phone] | | | +--------+ + + + [...]
--- OUTSIDE RECORDS SUMMARY | ~2020-01-25 | XMS | Encounter Summary ---
Demographics + + + | Address | [address] | | | [place] [address] | + + + | Home Phone [...] + +------+ + | Care English Composition Teacher Name | Role | Phone | [...] | | | Yog[place], | [address] | | | | | Sacroiliitis | Carlos Armijo MD | [place], | | | | | , not | [address] | [place] | | | | | elsewhere | [facility] | [address] | | | | | classified | [place] | Phone: | | | | | ([facility]) | [address] | [phone] | | | | | Procedures | Phone: | Fax: | | | | | [facility] INJECT SI | [phone] | [phone] | | | | | JOINT | Fax: | | | | | | ARTHRGRPHY&/ | [phone] | | | | | | ANES/STEROID | | | | | | | W/IMAGE [facility] | | | | | | [...] | 02/27/ | Hospital | [facility] | Joe, | Bilateral | | 2015 | Encounter | MED CTR XRAY [address] | MARY Montero [address] | sacroiliitis (HCC) | | | | [place] | [facility] [address] | (Primary Dx); | | | | [place] [address] | [place] [address] | Chronic low back | | | | [phone] | [phone] | pain; SCOLIOSIS , | | | | | | IDIOPATHIC; S/P | | | | | Stock Preparer, [facility]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; | | | [...] | | | | | [place] [address] | | | | | | [phone] | | | | | | | [...] 720.0 Belinda Meehan presents to the | [facility] | | fluoroscopy suite for fluoroscopically guided bilateral sacroiliac [facility] | | joint steroid injections as [...] + + | Performing | Address | City/State[facility] | Phone Number | | Organization | | | | + + + + + | [facility] | [address] | [place] | [phone] | | [facility] | | [address] | | | - IMAGING | | [...] 720.0 Belinda Meehan presents to the | [facility] | | fluoroscopy suite for fluoroscopically guided bilateral sacroiliac | MEDICAL CENTER | | joint steroid injections [...] ST. | [address] | [place], [place] | [phone] | | [facility] | | [address] | | | - IMAGING | | [...]
--- OUTSIDE RECORDS SUMMARY | ~2020-01-25 | XMS | Encounter Summary ---
Demographics + + + | Address | [address] | | | [place] [address] | + + + | Home Phone [...] Providers + +------+ + | Care Rehabilitation Services Coordinator Name | Role | Phone [...] 2007 | Only | [address] | [phone] | | | | | Rd Mailcode: RPB07 | | | | | | [place], [place] | | | | | | [address] | | | | | | [phone] | | | +--------+ + + + [...] [facility] DEPARTMENT OF | [facility] | [place] [address] | | | PATHOLOGY | [address] | | | + + + + + | [place] DEPARTMENT OF | [facility] | [place] [address] | | | PATHOLOGY | [address] | | | + + + + + documented in this encounter Visit Diagnoses Not on filedocumented in this encounter"
--- OUTSIDE RECORDS SUMMARY | ~2020-01-25 | XMS | Encounter Summary ---
Demographics + + + | Address | [address] | | | [place] [address] | + + + | Home Phone [...] Providers + +------+ + | Care Digital Print Operator Name | Role | Phone [...] | | | | | Procedures | [address] | | | | | | CONSULT TO | Mychal Kovacs | | | | | | NEUROLOGY | [place], [place] | | | | | | | [address] | | +--------+--------+ + + + + Reason for Visit + + + | Reason | Comments | + + + | Back pain | | + + + Encounter Details +--------+---------+ + + + | Date | Type | Department | Care Team | Description | +--------+---------+ + + + | 10/03/ | Office | [facility] Comprehensive | Miranda Lambert, | Falling; | | 2009 | Visit | Pain Center at | ANP | Fibromyalgia; LBP | | | | [facility] | | (low back pain); | | | | [address] | | Encounter for | | | | Center for Health | | Long-Term (Current) | | | | and Healing, | | Use of Opioids; | | | | | | Hypothyroidism; | | | | Floor [place], [place] | | Metabolic syndrome X | | | | [address] | | 250.80; Major | | | | [phone] | | depressive disorder, | | | [...] Schedule an appointment with Dr. Cesar SHEEHAN [facility] Neurology - If you continue [...] Belinda Meehan is a 49 y.o. female [facility] Comprehensive Pain Center Return [...] it no help 4. Dr. Ricky SHEEHAN [facility] did spine surgery last [...] 08/2007 right knee Hx lumbar fusion 05/2008 L5-B5eecoal with bone spur removals Hx appendectomy Hx cholecystectomy Hx section Hx hysterectomy Gastric bypass Mayra Padgett wt 278 01/18 Paniculectomy Family History Problem Relation Cancer Mother Heart Father Additional Family History Father Migraine Additional Family History Mother Migraine Taniya Guerrero MD [facility] Neurology 2007 evaluation of migraines: [...] the names of 3 headache specialists in [place]- Dr. Koby García, Dr. Dakota Sweet and [...] Dr. 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 Guerrero, for falls [...] to taper off gabapentin 2. Order for [facility] neurology Dr. Taniya Guerrero if [...] COMPREHENSIVE PA[facility] CENTER Mail code CH 4P [facility] [address] [place] [address] Ailyn Foster 1:03 PM PDTCMA History: [...]
--- OUTSIDE RECORDS SUMMARY | ~2020-01-25 | XMS | Encounter Summary ---
Demographics + + + | Address | [address] | | | [place] [address] | + + + | Home Phone [...] | Phone | + +------+ + | Crytsal Gutierrez MD | PCP | | + [...] | 2006 | Visit | [facility] at [employer] | [address] [facility] | (Primary Dx); DJD | | | | for Health and | [facility], [place] | (Degenerative Joint | | | | Healing [address] | [address] | Disease) of Left | | | | [facility] for | [phone] | Knee | | | | Health and Healing, | | | | | | | | | | | | [place], [place] | | | | | | [address] | | | | | | [phone] | | | +--------+---------+ + + + [...] might be different from lesli gomez. 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 She is doing PT as this point. With some benefit. She is concerned because she now has some poppin mahesh dlocking symptoms and wants to know if there si something that integration director be done w ith a scope to [...] (ciprofloxacin) Tramadol Morphine IM ( only in [facility]) [...] MRI. Ramon Ibarra M.D. Sports Medicine [facility] Orthopaedics and Rehabilitation [facility] [place] [phone] documented in this encoun ter Plan of [...] | + +---------+ + + | [facility] DEPARTMENT OF | | | | [...] | + +---------+ + + | [facility] DEPARTMENT OF | | | | [...]
--- OUTSIDE RECORDS SUMMARY | ~2020-01-25 | XMS | Encounter Summary ---
Demographics + + + | Address | [address] | | | [place] [address] [...] + +------+ + | Care Personal Property Assessor Name | Role | Phone [...] | 07/19/ | Refill | [facility] | Alanis, | Medication Refill | | 2019 | | MEDICINE [address] | MD Pet[place] | | | | | [place], | [address] | | | | | [place] [address] | [place] [address] | | | | | [phone] | [phone] | | | | | | | [...] | | | | | [place] [address] | | | | | | [phone] | | | | | | | | +--------+---------+ + + + documented as of this encounter Visit Diagnoses Not on filedocumented in this encounter"
--- OUTSIDE RECORDS SUMMARY | ~2020-01-25 | XMS | Encounter Summary ---
Demographics + + + | Address | [address] | | | [place] [address] | + + + | Home Phone [...] Providers + +------+ + | Care Bilingual Call Center Representative Name | Role | [...] | | | | SURGERY - | [place], [place] | [facility] [place] | | | | | UROLOGY | [address] | for Health | | | | | | Phone: | dat [place], | | | | | | [phone] | [address], | | | | | | Fax: | 10th Floor | | | | | | [phone] | [place], [place] | | | | | | | [address] | | | | | | | Phone: | | | | | | | [phone] | | | | | | | Fax: | | | | | | | [phone] | +--------+--------+ + + + + Reason [...] | Status Post | | | | [facility] | [facility] [place] | Bariatric Surgery | | | | and Healing, | [address] | | | | | [facility] | [phone] | | | | | Floor [place], [place] | | | | | | [address] | | | | | | [phone] | | | +--------+---------+ + + + [...] coughing. Medications: Fentanyl 25 mcg 72 hours, [place]/JOJO 10 mg/325 mg PRN Q 6 hrs, [...]
--- OUTSIDE RECORDS SUMMARY | ~2020-01-25 | XMS | Encounter Summary ---
Demographics + + + | Address | [address] | | | [place] [address] | + + + | Home Phone [...] Team Providers + +------+ + | Care Dragline Oiler Name | Role | Phone | [...] | | | | | Encounter | [place], [place] | [place] | | | | | for | [address] | [address] | | | | | long-term | | Phone: | | | | | (current) | | [phone] | | | | | use of other | | Fax: | | | | | medications | | [phone] | | | | | LBP (low [...] | Diagnoses | Paco, | Fili Pt Knowledge Architect | | | | Therapy | Myalgia and | Rosi T, ANP | [facility] [address] | | | | | myositis, | [address] | | | | | unspecified | [address] | Mailcode: | | | | | LBP (low | [place], [place] | [facility] | | | | | back pain) | [address] | for Health | | | | | Chronic | | and Healing, | | | | | shoulder | | [address] | | | | | pain Muscle | | [place], [place] | | | | | strain | | [address] | | | | | Radicular | | Phone: | | | | | pain in left | | [phone] | | | | | arm Neck [...] | | pain | [place], [place] | [place], [place] | | | | | | [address] | [address] | | | | | | Phone: | | | | | | | [phone] | | | | | | | Fax: | | | | | | | [phone] | | +--------+--------+ + + + + Encounter Details +--------+---------+ + + + | Date | Type | Department | Care Team | Description | +--------+---------+ + + + | 04/05/ | Office | [facility] Comprehensive | Rosi Antonio, | LBP (low back pain) | | 2012 | Visit | Pain Center at | ANP | (Primary Dx); | | | | [facility] | | Fibromyalgia | | | | [address] | | syndrome 729.1; | | | | [facility] for [facility] | | Encounter for | | | | and Healing, | | Long-Term (Current) | | | | Building | | Use of Opioids; | | | | Floor [place], [place] | | Chronic Bilateral | | | | [address] | | Shoulder Pain; | | | | [phone] | | Muscle Strain hips; | | [...] these treatment options. Consult to [facility] physical therapy: A supervised physical therapy evaluation [...] [facility] [address] Mail Code: [place] [address] documented in this encounter Progress Notes Rosi Antonio ANP - 04/05/2013 9:28 AM PDTFormatting of this note might be different fro m the original. [facility] Office Visit 04/05/2013 Belinda Meehan; ; : 1960 Ms. Meehan was referred for pain management consultation by Taqueria Raman NP [address] [place] [address] Chief Complaint Patient presents with New patient [...] taper off gabapentin 2. Order for [facility] neurology Dr. 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 As part of today's visit the [facility] new patient questionnaire [...] you expect from your visits to the [facility] ? Don't know [...] Overview Note: Surgery 05/15/[address] [facility] to get operative reports Osteopenia 08/24/2007 LBP [...] before her lumbar surgeries and recently in [place]. She has short-term relief from the se treatments. I would like her to return to see Dr. Murali Montero to discuss these treatment options. Consult to [facility] physical therapy: A supervised physical therapy evaluation [...] is my privilege to be part of [place]'s health care team. Pl ease free to contact me at any time if you have questions or concerns. I spent 30 minutes with the patient of which more than 50% was spent nndsu-yc-ajtx in [facility] pain questionnaire, medical record, consultation, discussion, addressing questions and counselling/education. [facility] [address] Mail Code: [place] [address] mith, Maris Lopez MA - [...]
--- OUTSIDE RECORDS SUMMARY | ~2020-01-25 | XMS | Encounter Summary ---
Demographics + + + | Address | [address] | | | [place] [address] | + + + | Home Phone [...] + +------+ + | Care Potato Chip Sorter Name | Role | Phone | [...] | Procedures | [address] | [place] | | | | | CONSULT TO | [address] | [address] | | | | | GI PROCEDURE | Rd | floor | | | | | UNIT: EGD | [place], [place] | [place], [place] | | | | | | [address] | [address] | | | | | | Phone: | Phone: | | | | | | [phone] | [phone] | | | | | | | Fax: | | | | | | | [phone] | +--------+--------+ + + + + Consultation [...] | | | | | UNIT: | [place], [place] | [place] | | | | | COLONOSCOPY | [address] | [address] | | | | | | Phone: | Phone: | | | | | | [phone] | [phone] | | | | | | | Fax: | | | | | | | [phone] | +--------+--------+ + + + + Reason [...] + + | 03/10/ | Office | [facility] Division of | Carlos Arreola, | Chronic Abdominal | | 2005 | Visit | Gastroenterology/Hep | MD [address] | Pain; Iron | | | | atology [address] | Deficiency | | | | [address] | [place] [address] | | | | | Mailcode: [id number] | [phone] | | | | | [facility] | | | | | | [address] | | | | | | [place], [place] | | | | | | [address] | | | | | | [phone] | | | +--------+---------+ + + + [...] so by calling and asking for my periodontal assistant Cierra Alexis. I always do my [...] other questions or issues. Carlos Arreola MD. 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 Lost 200lbs psot bypass surgery, has [...] [facility] | [address] | [place] [address] | | | PATHOLOGY | [address] | | | + + + + + | [facility] | [address] | [place] [address] | | | PATHOLOGY | [address] [...] | [facility] | [address] [facility] | [place] [address] | | | PATHOLOGY | [address] | | | + + + + + | [facility] | [address] [facility] | [place] [address] | | | PATHOLOGY | [address] [...] [facility] DEPARTMENT OF | [address] | [place] [address] | | | PATHOLOGY | [address] | | | + + + + + | [facility] | [facility] [address] | [place] [address] | | | PATHOLOGY | [address] [...] DEPARTMENT OF | [address] | [place] [address] | | | PATHOLOGY | [address] | | | + + + + + | [facility] | [address] | [place] [address] | | | PATHOLOGY | [address] [...] | | | [facility]. | | | | + + + + + + + + | Specimen | + + | | + + + + + + + | Performing | Address | City/State/Zipcode | Phone Number | | Organization | | | | + + + + + | [facility] | [address] | [place] [address] | | | LABORATORY | | | [...] | | | | | performed at [facility] | | | | | | [facility] | | | | | | Laboratory | | | | + + + + + + + + | Specimen | + + | | + + + + + + + | Performing | Address | City/State/Zipcode | Phone Number | | Organization | | | | + + + + + | [facility] | [address] | [place] [address] | | | LABORATORY | | | | + + + + + documented in this encounter Visit Diagnoses + + | Diagnosis | + + | Chronic abdominal pain Abdominal pain, unspecified site | + + | Iron deficiency Other disorders of iron metabolism | + + documented in this encounter"
--- OUTSIDE RECORDS SUMMARY | ~2020-01-25 | XMS | Encounter Summary ---
Demographics + + + | Address | [address] | | | [place] [address] | + + + | Home Phone [...] | | right | [address] | [address] Phone: | | | | | supraspinatu | [place], | [phone] | | | | | s tendon, | [place] | Fax: | | | | | initial | [address] | [phone] | | | | | encounter | Phone: | | | | | | | [phone] | | | | | | | Fax: | | | | | | | [phone] | | +--------+ + + + + [...] Acute pain | Emmy-Tajt | [address] | | | | | of right | i, | [place], | | | | | shoulder | John | [place] | | | | | Procedures | , [place] [address] | [address] | | | | | MRI Shoulder | [address] | Phone: | | | | | Right wo | [place], | [phone] | | | | | Contrast | [place] | Fax: | | | | | | [address] | [phone] | | | | | | Phone: | | | | | | | [phone] | | | | | | | Fax: | | | | | | | [phone] | | +--------+--------+ + + + + [...] + + | 01/15/ | Office | [facility] | Alanis, | Acute pain of right | | 2017 | Visit | MEDICINE [address] | MD John | shoulder (Primary | | | | [address] [place], | [address] [facility] | Dx); Chronic | | | | [place] [address] | [place] [address] | diarrhea; Fatty | | | | [phone] | [phone] | liver; S/P bariatric | | | [...] with myelopathy, lumbar region Stroke ([facility]) Syncope Tremor Type II or [...] COLONOSCOPY; Surgeon: Luther Brito MD; Location: [facility] MEDICAL PROCEDURE UNIT DILATION AND CURETTAGE OF UTERUS ELBOW SURGERY FINGER TRIGGER RELEASE 2002 FINGER TRIGGER RELEASE 2010 GASTRIC BYPASS SURGERY 2004 HYSTERECTOMY 05/14/1980 JOINT REPLACEMENT Bilateral 2006,2008 KNEE ARTHROSCOPY 2005 LAPAROSCOPY 01/27/2015 LAPAROTOMY 2008 ROTATOR CUFF REPAIR 2005 SPINE SURGERY TONSILLECTOMY 1964 UPPER GASTROINTESTINAL ENDOSCOPY N/A 12/18/2017 Procedure: EGD; Surgeon: Luther Brito MD; Location: [facility] MEDICAL PROCEDURE UNIT CURRENT MEDICATIONS [...] mcg 1,000 mcg Intramuscular Q30 Days Cla udiu-Russell Thapa MD 1,000 mcg at 12/10/17 1040 ALLERGIES Allergies Allergen Reactions Codeine Sulfate Nausea Only Levofloxacin Hives, Itching and Rash Amitriptyline Hcl Other (See Comments) Confused and questionable for seizures Krqbjgwhje-Lhny-Esxjmoxq Hives and Rash Cephalexin Hives Ciprofloxacin Hives [...] Note: Parts of this documentwere created using [employer] speech recognition software. As a r esult, there may be unintended word spelling errors. Every attempt was made to correct the dictation. documente d in this encounter Miscellaneous Notes Addendum Note - John Thapa MD - 01/15/2018 10:45 AM PDT Addended by: JOHN HOPKINS on: 02/18/2018 10:49 Modules accepted: Orders documen holly in this encounter Plan of Treatment +--------+---------+ + + + | Date | Type | Specialty | Care Team | Description | +--------+---------+ + + + | 02/15/ | Office | Internal Medicine | Emmy-Tajti, | | | 2019 | Visit | | MD John | | | | | | [address]la [address] | | | | | | [place] [address] | | | | | | [phone] | | | | | | | | +--------+---------+ + + + + + +--------+ + + | Name | Type | Priori | Associated Diagnoses | Order Schedule | | | | ty | | | + + +--------+ + + | * [facility] | Routin | Acute pain [...]
--- OUTSIDE RECORDS SUMMARY | ~2020-01-25 | XMS | Encounter Summary ---
Demographics + + + | Address | [address] | | | [place] [address] | + + + | Home Phone [...] Providers + +------+ + | Care Audit Lead Name | Role | Phone | [...] | | sciatica | [address] | [place] [address] | | | | | Generalized | [place], | Phone: | | | | | osteoarthrit | [place] | [phone] | | | | | is | [address] | Fax: | | | | | | Phone: | [phone] | | | | | | [phone] | | | | | | | Fax: | | | | | | | [phone] | | +--------+ + + + + [...] [place], | [address] [facility] [address] | | | | | [place] [address] | [place] [address] | | | | | [phone] | [phone] | | | | | | | [...] that the her previous pain clinic in [facility] on. [place], that managed her pain [...] like to be referred to. . / [phone]. elephone Encounter - Jhon Rapp MD - 06/16/2017 7:05 PM PSTPlease [...] stand she is so weak. Please advise. [phone] signed by Astrid Grant at 06/16/2017 9:33 [...] she can eat. Please call her at [phone] to discussElectr onically signed by Shalonda Mcdermott at 06/09/2017 1:21 PM PSTTelephone Encounter - Kiana Mcdermott - 06/05/2017 2:46 PM PSTContact/Caller: melissa-self Contact Number: [phone] Provider/Nurse: Emmy Reason for Call: Melissa stated [...] [place] | | | | | | [place] [address] | | | | | | [phone] | | | | | | | [...]
--- OUTSIDE RECORDS SUMMARY | ~2020-01-25 | XMS | Encounter Summary ---
Demographics + + + | Address | [address] | | | [place] [address] | + + + | Home Phone [...] Team Providers + +------+ + | Care Indirect Sales Exec Name | Role | Phone | + [...] | Registratio | [facility] | [address] | | | | n | [place] Mailcode: [id number] | [place], [place] | | | | | [place], [place] | [address] | | | | | [address] | [phone] | | | | | [phone] | | | +--------+ + + + [...] | | | | | performed by [employer] | pg/mL | | | | | [facility]. | | | | + + + + + + + + | Specimen | + + | | + + + + + + + | Performing | Address | City/State/Zipcode | Phone Number | | Organization | | | | + + + + + | [facility] | [address] | [place] [address] | | | LABORATORY | | | [...] at: | | | | | | [email or web address] | | | | | | [facility] | | | | | | [address] | | | | | | [email or web address] | | | | + + + + + + + + | Specimen | + + | | + + + + + + + | Performing | Address | City/State/Zipcode | Phone Number | | Organization | | | | + + + + + | [facility] | [address] | [place], [place] | | | [facility] | | [address] | | + + + + + [...] Iron and TIBC, Serum Test performed by [facility] | | | [facility] [employer] | | + + + + + + + + | Performing | Address | City/State/Zipcode | Phone Number | | Organization | | | | + + + + + | [facility] | [address] | [place] [address] | | | LABORATORY | | | [...] | B12, SERUM | Test performed by [facility] | | | | | | [facility] | | | | | | Laboratories. | | | | + + + + + + + + | Specimen | + + | | + + + + + + + | Performing | Address | City/State/Zipcode | Phone Number | | Organization | | | | + + + + + | [facility] | [address] | [place] [address] | | | LABORATORY | | | [...] CANCER CENTER DEPARTMENT OF | [address] | [place] [address] | | | PATHOLOGY | [address] | | | + + + + + | [place] DEPARTMENT OF | [address] | [place] [address] | | | PATHOLOGY | [address] [...] DEPARTMENT OF | [address] | [place] [address] | | | PATHOLOGY | [address] | | | + + + + + | [facility] | [facility] [address] | [place] [address] | | | PATHOLOGY | [address] [...] Performed At | + + + | [id number] Estimated GFR > 60 mL/min/1.73 sq m if non- | [facility] | | [id number] Estimated GFR > 60 mL/min/1.73 sq m [...] + + + + | [facility] | [address] | [place] [address] | | | PATHOLOGY | [address] | | | + + + + + | [facility] | [address] | [place] [address] | | | PATHOLOGY | [address] | | | + + + + + documented in this encounter Visit Diagnoses Not on filedocumented in this encounter"
--- OUTSIDE RECORDS SUMMARY | ~2020-01-25 | XMS | Encounter Summary ---
Demographics + + + | Address | [address] | | | [place] [address] | + + + | Home Phone [...] + +------+ + | Care [employer] Teacher Name | Role | Phone [...] | | | Stay [address] | [place], [place] | Examination; HTN | | | | [address] | [address] | (Hypertension); | | | | Mailcode: [id number] | [phone] | Chronic Pain | | | | [facility] | | | | | | [address] [facility] [place] | | | | | | [address] | | | | | | [phone] | | | +--------+---------+ + + + [...] dietary restrictions or a bowel preparation. Your [facility] gical team will give you [...] PM please call your surgeons' office for mcssf-[id number]. PARKING Parking for patients and visitors is available in the [facility] Parking structure located across from the [...] ADVICE FOR DAY OF SURGERY: Remove nail omani from at least one fingernail (if applicable) [...] surgeries scheduled to take place [facility] the [place] [facility]: Surgeries scheduled in the [facility] ([address] [place] [address]): registration is located on the 4th floor of [facility] (Day Surgery). Surgeries scheduled in the [facility]: registration is located on the 9th floor . For surgeries scheduled to take place at the [facility]: registration i s located on the 4th floor (Surgery Center). AVOID THESE MEDICATIONS FOR 7 DAYS BEFORE SURGERY PRODUCTS CONTAINING ASPIRIN Jacquelyn-Trinidad, Anacin, Anexsia with Codeine, Len nos, Aspirin, Aspirin suppositories, Ascri ptin, Aspergum, Axotal, B-A-C, Baby Aspirin, Lucila, BC Powder, Bexophene, Buffaprin, Bufferi n, Buffinol, Cama-Arthritis Strength, Congespirin, [place], Coricidin, Damason, Darvon, Dristan , Anastasia-Gesic, Digel, Dolprin #3 Tablets, Donatab, Doxaphene, Duragesic, Easprin, Ecotrin, Dipika grin Forte, Emiprin, Emprazil, Equagesic, Equazine M, Excedrin, Fiogesic, Fiorgen PH, Fioric et, Fiorinal, 4-Way Cold Tablet Gemnisyn, Indocin, Liquprin, Lortab ASA, Magnaprin, Marnal, Meprobamate, Midol, Momentum, N orgesic, [place], Orphengesic, Pabalate, P-A-C, Percodan, Presalin, Robaxasil, Roxiprin, Bunny eto, Salocol SK-65 Compound, Sine-Aid, Sine-Off,, Dunstan, Supac, Talwin Compound, Trigesic, Tolectin , Traiminicin, Vanquish, ZORprin, Zomax PRODUCTS CONTAINING IBUPROFEN Advil, Aleve, Haltran, Medipren, Midol, Motrin, Naproxyn, Nuprin, Rufen OTHER PRODUCTS WHICH MAY PROMOTE BLEEDING Vitamin E, Gingko Biloba, Marine Fatty Acids, Negaunee-3 Fish Oil Supplements documented in this encounter [...] + | [facility] DEPARTMENT | [address] [facility] | [place] [address] | | | PATHOLOGY | [address] | | | + + + + + | [facility] DEPARTMENT OF | [address] [facility] | [place] [address] | | | PATHOLOGY | [address] [...] DEPARTMENT OF | [address] | [place] [address] | | | PATHOLOGY | [address] | | | + + + + + | [facility] DEPARTMENT | [address] | [place] [address] | | | PATHOLOGY | [address] [...] | | | DEPARTMENT | | | [facility] | | | OF | | | [...] [facility] | [address] | [place] [address] | | | PATHOLOGY | [address] | | | + + + + + | [facility] | [address] | [place] [address] | | | PATHOLOGY | [address] [...] DEPARTMENT OF | [address] | [place] [address] | | | PATHOLOGY | [address] | | | + + + + + | [place] DEPARTMENT OF | [address] | [place] [address] | | | PATHOLOGY | [address] [...] view image for the detailed interpretation from [facility] results. | CARDIOLOGY | | | | + + + + + + + + | Performing | Address | City/State/Zipcode | Phone Number | | Organization | | | | + + + + + | [facility] DEPT OF | [address] | [place], [place] | | | CARDIOLOGY | [address] | [address] | | + + + + + | [facility] OF | [address] | [place], [place] | | | CARDIOLOGY | [address] | [address] | | + + + + + [...]
--- OUTSIDE RECORDS SUMMARY | ~2020-01-25 | XMS | Encounter Summary ---
Demographics + + + | Address | [address] | | | [place] [address] | + + + | Home Phone [...] Providers + +------+ + | Care Shear Operator Name | Role | Phone [...] + + | 06/26/ | Telephone | [facility] | Alanis, | ER Follow-up | | 2017 | | MEDICINE [address] | MD Petrona | | | | | [place], | [address] [facility] | | | | | [place] [address] | [place] [address] | | | | | [phone] | [phone] | | | | | | | [...] 8:06 AM PSTContact/Gerardo ler: Belinda Contact Number: [phone] Provider/Nurse: Emmy Reason for Call: Emergency room [...] | | | | | | [address] [place] [address] [address] | | | | | | [place] [address] | | | | | | [phone] | | | | | | | | +--------+---------+ + + + documented as of this encounter Visit Diagnoses Not on filedocumented in this encounter"
--- OUTSIDE RECORDS SUMMARY | ~2020-01-25 | XMS | Encounter Summary ---
[...] Team Providers + +------+ + | Care Electroencephalograph Technician Name | Role | Phone | [...] | 2006 | Visit | [facility] | MD Darrion,PhD [address] | (Primary Dx) | | | | for Health and | [address] | | | | | Healing [address] | [place], [place] | | | | | [facility] | [address] | | | | | Health and Healing, | [phone] | | | | | [facility] | | | | | | Floor [place], [place] | | | | | | [address] | | | | | | [phone] | | | +--------+---------+ + + + [...] normal limits except as noted. RIGHT LEFT Bixby Crepitation J Sign Apprehension LIGAMENTS: Within normal [...] are not effective. Angel Morales M.D., Ph.D. Surgery Tech, Surgical Rn Labor And Delivery Orthopedics & Cartilage Reconstruction Surgery Department of Orthopedics [email or web address] documented in this encou nter Plan of Treatment Not on filedocumented as of this encounter Visit Diagnoses + + | Diagnosis | + + | Osteoarthrosis, unspecified whether generalized or localized, lower leg - Primary | + + documented in this encounter
--- OUTSIDE RECORDS SUMMARY | ~2020-01-25 | XMS | Encounter Summary ---
Demographics + + + | Address | [address] | | | [place] [address] | + + + | Home Phone [...] Providers + +------+ + | Care Technical Systems Architect Name | Role | Phone | [...] | | | | SURGERY - | [place], [place] | [address] | | | | | UROLOGY | [address] | for Health | | | | | | Phone: | dat Che[place]ne, | | | | | | [phone] | Building [address], | | | | | | Fax: | 10th Floor | | | | | | [phone] | [place], [place] | | | | | | | [address] | | | | | | | Phone: | | | | | | | [phone] | | | | | | | Fax: | | | | | | | [phone] | +--------+--------+ + + + + Reason [...] | Status Post | | | | [facility] | [facility] [place] | Bariatric Surgery | | | | and Healing, | [address] | | | | | [facility] | [phone] | | | | | Floor [place], [place] | | | | | | [address] | | | | | | [phone] | | | +--------+---------+ + + + [...] coughing. Medications: Fentanyl 25 mcg 72 hours, [place]/JOJO 10 mg/325 mg PRN Q 6 hrs, [...]
--- OUTSIDE RECORDS SUMMARY | ~2020-01-25 | XMS | Encounter Summary ---
Demographics + + + | Address | [address] | | | [place] [address] | + + + | Home Phone [...] Team Providers + +------+ + | Care Thermal Molder Name | Role | Phone | [...] as of this encounter Progress Notes Interface, Devulcanizer Loader In - 02/19/2005 5:04 AM PDT [id number] GEOVANNI [facility] Date: 01/17/2005 Clinic: General [...] with Dr. Dwaine Larson. She has a sqk-pdtl-ghehc lesion at the distal aspect of her [...] and hopeful improvement and eventual closure. Devin Germna M.D. Dwaine Larson M.D. [facility] / [id number] / [id number] / [id number] / [id number] Electronically signed by Dwaine Larson 02-18-2005 09:15:31 AM documented i n this encounter Plan of Treatment Not on filedocumented as of this encounter Visit Diagnoses Not on filedocumented in this encounter
--- OUTSIDE RECORDS SUMMARY | ~2020-01-25 | XMS | Encounter Summary ---
Demographics + + + | Address | [address] | | | [place] [address] | + + + | Home Phone [...] Providers + +------+ + | Care Medical Radiation Dosimetrist Name | Role | Phone | + [...] | | | | | Procedures | [facility] | [place] for | | | | | CONSULT TO | Rd | Health and | | | | | NEUROLOGY | [place], [place] | Healing, | | | | | | [address] | Building [address], | | | | | | Phone: | 8th Floor | | | | | | [phone] | [place], [place] | | | | | | | [address] | | | | | | | Phone: | | | | | | | [phone] | | | | | | | Fax: | | | | | | | [phone] | +--------+--------+ + + + + Reason [...] | | | [facility] | [place], [place] | Weak; | | | | [address] | [address] | Migraine Headache | | | | [address] | [phone] | | | | | [facility] | | | | | | Physician's | | | | | | Pavilion [place], | | | | | | [place] [address] | | | | | | [phone] | | | +--------+---------+ + + + [...] oral route once daily, Disp: , Rfl: ryftadzvgm-jcgeokvdxgnqi-zqlzzbcd (FIORICET) 50-325-40 mg Oral Tablet, take 2 [...] LE edema Results for BELINDA MEEHAN Molly (ID#[id number]) as of 03/01/2008 9:22:28 PM Ref. Range [...] K/cu mm 220 Results for BELINDA MEEHAN (ID#[id number]) as of 03/01/2008 9:22:28 PM Ref. Range [...] continue to [facility]. RTC in 3 mos, [...] + | [facility] DEPARTMENT OF | [facility] | [place] [address] | | | PATHOLOGY | [address] | | | + + + + + | [facility] DEPARTMENT OF | [facility] | [place] [address] | | | PATHOLOGY | [address] [...] Performed At | + + + | [id number] Estimated GFR > 60 mL/min/1.73 sq m if non- | [place] | | [place] [address] Estimated GFR > 60 mL/min/1.73 sq m [...] [facility] | [address] [facility] | [place] [address] | | | PATHOLOGY | [address] | | | + + + + + | [facility] | [address] [facility] | [place] [address] | | | PATHOLOGY | [...] RLB ([facility]) | | | [facility] [address] | | | [place] [address] | | + + + + + + + + | Performing | Address | City/State/Zipcode | Phone Number | | Organization | | | | + + + + + | [facility] | [address] | [place] [address] | | | LABORATORY | | | [...] ([facility]) | | | [facility] [place] [address] [place] [address] | | | [place] [address] | | + + + + + + + + | Performing | Address | City/State/Zipcode | Phone Number | | Organization | | | | + + + + + | [facility] | [address] | [place] [address] | | | LABORATORY | | | [...]
--- OUTSIDE RECORDS SUMMARY | ~2020-01-25 | XMS | Encounter Summary ---
[...] | | | | | [facility] | | | | | | [address] | | | | | | [place] for Health | | | | | | and Healing, | | | | | | Building | | | | | | Floor [place], [place] | | | | | | [address] | | | | | | [phone] | | | +--------+ + + + [...]
--- OUTSIDE RECORDS SUMMARY | ~2020-01-25 | XMS | Encounter Summary ---
[...] Providers + +------+ + | Care Pathology Secretary Name | Role | Phone | [...] 07/30/ | Office | [facility] | Lukasz Charles, | Major Depressive | | 2006 | Visit | [address] | PhD [address] | Disorder, Recurrent | | | | Center for Health | [place], [place] | Episode, Moderate; | | | | and Healing, | [address] | Chronic Abdominal | | | | Building | [phone] | Pain; Herniated | | | | Floor [place], [place] | | Lumbar | | | | [address] | | Intervertebral Disc | | | | [phone] | | L4-5; Spondylosis | | | [...] documented as of this encounter Progress Notes uLkasz Charles - 07/31/2006 10:21 AM PSTPROGRESS NOTE: [...] She set a goal to go to [place] with a friend and use pacing skills during the trip. Ms. Meehan has depression and frustration. She is having some difficulty increasing her a ctivity level but she is putting forth effort. She appears to have good insight. Diagnosis: [place] I: 1. (296.32) Major depressive disorder, recurrent, moderate. 2. (309.24) Adjustment disorder with anxiety. 3. (307.89) Chronic pain disorder associated with both psychological factors and a gene ral medical condition. [place] II: Deferred [place] III: abdominal pain, migraine headache, low back pain. [place] IV: low finances [place] V: GAF 50 Plan: Return in 2 weeks. Check pacing, relaxation, activity. Check trip to [place]. Check mood. Continue cognitive/behavioral therapy. Total time spent with patient was approximately 45 minutes. LUKASZ CHARLES PHD [facility] [address] [facility][1] [place] [address] documented in this encount er Plan of Treatment + + +--------+ + + | Name | Type | Priori | Associated Diagnoses | Order Schedule | | | | ty | | | + + +--------+ + + | [facility], | Procedures | Routin | Major Depressive | Ordered: 07/31/2006 | | OFFICE (47-48) | | e | Disorder, Recurrent | [...]
--- OUTSIDE RECORDS SUMMARY | ~2020-01-25 | XMS | Encounter Summary ---
Demographics + + + | Address | [address] | | | [place] [address] | + + + | Home Phone [...] Providers + +------+ + | Care Television Cable Installer Name | Role | Phone [...] + + | 11/16/ | Telephone | [facility] | Alanis, | Lab Results | | 2018 | | MEDICINE [address] | MD Petrona | | | | | [place], | [address] [facility] | | | | | [place] [address] | [place] [address] | | | | | [phone] | [phone] | | | | | | | [...] like a rerun phobe call. Please call [phone] regarding her labs that were done 11/16/19 [...] | | | | | [place] [address] | | | | | | [phone] | | | | | | | | +--------+---------+ + + + documented as of this encounter Visit Diagnoses Not on filedocumented in this encounter"
--- OUTSIDE RECORDS SUMMARY | ~2020-01-25 | XMS | Encounter Summary ---
Demographics + + + | Address | [address] | | | [place] [address] | + + + | Home Phone [...] Providers + +------+ + | Care Tank Assembler Name | Role | Phone | [...] of this encounter Progress Notes Interface, Manager Mass In - 09/13/2005 2:06 AM PST [id number] GEOVANNI SKELTON [facility] Date: 07/03/2005 Clinic: [...] which are pending through the laboratory in [place]. Allergies: PENICILLIN, CODEINE, KEFLEX, SULFA, CIPRO, AND [...] which were done several days ago in [place]. Beto Meeks M.D. PD / HS [id number] / [id number] / [id number] / [id number] cc: Chris Padgett M.D. [facility] Electronically signed by Beto Meeks 09-12-2005 02:23:07 AM documented i n this encounter Plan of Treatment Not on filedocumented as of this encounter Visit Diagnoses Not on filedocumented in this encounter"
--- OUTSIDE RECORDS SUMMARY | ~2020-01-25 | XMS | Encounter Summary ---
Demographics + + + | Address | [address] | | | [place] [address] | + + + | Home Phone [...] | Registratio | [facility] | MD Lukasz [address] | | [address] | [address] Mailcode: [id number] | [place], | | | | | [place], [place] | [place] [address] | | | | | [address] | [phone] | | | | | [phone] | | | +--------+ + + + [...] | | | | | performed at [facility] | | | | | | [facility] | | | | | | Laboratory | | | | + + + + + + + + | Specimen | + + | | + + + + + + + | Performing | Address | City/State/Zipcode | Phone Number | | Organization | | | | + + + + + | [facility] | [address] | [place] [address] | | | LABORATORY | | | [...] OF | [address] | [place] [address] | | | PATHOLOGY | [address] | | | + + + + + | [facility] DEPARTMENT OF | [address] | [place] [address] | | | PATHOLOGY | [address] [...] DEPARTMENT OF | [address] | [place] [address] | | | PATHOLOGY | [address] | | | + + + + + | [facility] DEPARTMENT OF | [address] [facility] | [place] [address] | | | PATHOLOGY | [address] [...] | [address] | [place] [address] | | | PATHOLOGY | [address] | | | + + + + + | [facility] DEPARTMENT OF | [address] | [place] [address] | | | PATHOLOGY | [address] [...] + | [facility] | [address] | [place] [address] | | | PATHOLOGY | [address] | | | + + + + + | [facility] DEPARTMENT OF | [address] | [place] [address] | | | PATHOLOGY | [address] [...] + | [facility] | [address] | [place] [address] | | | PATHOLOGY | [address] | | | + + + + + | [facility] | [address] | [place] [address] | | | PATHOLOGY | [address] | | | + + + + + documented in this encounter Visit Diagnoses Not on filedocumented in this encounter"
--- OUTSIDE RECORDS SUMMARY | ~2020-01-25 | XMS | Encounter Summary ---
Demographics + + + | Address | [address] | | | [place] [address] | + + + | Home Phone [...] Providers + +------+ + | Care Certified Alcohol Counselor Name | Role | Phone | [...]
--- OUTSIDE RECORDS SUMMARY | ~2020-01-25 | XMS | Encounter Summary ---
Demographics + + + | Address | [address] | | | [place] [address] | + + + | Home Phone [...] Team Providers + +------+ + | Care Frozen Food Selector Name | Role | Phone | + [...] | Visit | [facility] [address] | REPAIR TECH | syndrome [address] | | | | [address] | | (Primary Dx); | | | | Physician's | | Fibromyalgia | | | | Pavilion, 4th Floor | | | | | | [place], [place] | | | | | | [address] | | | | | | [phone] | | | +--------+---------+ + + + [...]
--- OUTSIDE RECORDS SUMMARY | ~2020-01-25 | XMS | Encounter Summary ---
Demographics + + + | Address | [address] | | | [place] [address] | + + + | Home Phone [...] + +------+ + | Care Director Of Strategic Programs Name | Role | Phone | [...] | | [facility] | [address] [facility] | | | | | [facility] | [address] [place], | | | | | [address] | [place] [address] | | | | | [address] | [phone] | | | | | Physician's | | | | | | Pavilion, 1st floor | | | | | | [place], [place] | | | | | | [address] | | | | | | [phone] | | | +--------+ + + + [...]
--- OUTSIDE RECORDS SUMMARY | ~2020-01-25 | XMS | Encounter Summary ---
Demographics + + + | Address | [address] | | | [place] [address] | + + + | Home Phone [...] + +------+ + | Care Clinical Lab Specialist Name | Role | Phone | [...] + | 12/28/ | Telephone | [facility] | Alanis, | Results, Imaging | | 2017 | | MEDICINE [address] | MD [place]rona | | | | | [place], | [address] [facility] [address] | | | | | [place] [address] | [place] [address] | | | | | [phone] | [phone] | | | | | | | [...] a call back today. Please call back [phone] signed by Malissa Redd at 12/31/2017 2:29 PM PDTTelephone En counter - FonMalissa dueñas - 12/31/2017 8:21 AM PDTPatient called again and would like to k now if the results have been received. Patient is concerned they haven't been sent and would really like to have someone confirm that they have been received. [phone] signed by Malissa Redd at 12/31/2017 8:23 AM PDTTelephone En counter - FonMalissa dueñas - 12/30/2017 11:17 AM PDTPatient called to check on status of res ults for Ultra sound that was done in [facility]. Please return patients call if results were received [phone] signed by Malissa Redd at 12/30/2017 11:19 [...] | | | | | [address] [facility] | | | | | | [place] [address] | | | | | | [phone] | | | | | | | | +--------+---------+ + + + documented as of this encounter Visit Diagnoses Not on filedocumented in this encounter"
--- OUTSIDE RECORDS SUMMARY | ~2020-01-25 | XMS | Encounter Summary ---
Demographics + + + | Address | [address] | | | [place] [address] | + + + | Home Phone [...] Providers + +------+ + | Care Science Education Professor Name | Role | Phone [...] as of this encounter Discharge Summaries Interface, Internet Sales Director In - 01/12/2005 10:09 AM PDT [id number] GEOVANNI Barnes Admission Date: 12/06/2004 Discharge Date: [...] her incision looked clear, dry, and intact. P[place] were in place. She had some moderate [...] Sree Carrillo M.D. Chris Padgett M.D. / [id number] / [id number] / [id number] / [id number] Electronically signed by Chris Padgett 12-31-2004 03:03:21 PM documented i n this encounter Plan of Treatment Not on filedocumented as of this encounter Visit Diagnoses Not on filedocumented in this encounter"
--- OUTSIDE RECORDS SUMMARY | ~2020-01-25 | XMS | Encounter Summary ---
Demographics + + + | Address | [address] | | | [place] [address] | + + + | Home Phone [...] + + | 02/18/ | Telephone | [facility] | Alanis, | Results | | 2017 | | MEDICINE [address] | MD Petrona | | | | | [place], | [address] [facility] | | | | | [place] [address] | [place] [address] | | | | | [phone] | [phone] | | | | | | | [...] | | | | | [place] [address] | | | | | | [phone] | | | | | | | | +--------+---------+ + + + documented as of this encounter Visit Diagnoses Not on filedocumented in this encounter"
--- OUTSIDE RECORDS SUMMARY | ~2020-01-25 | XMS | Encounter Summary ---
Demographics + + + | Address | [address] | | | [place] [address] | + + + | Home Phone [...] Providers + +------+ + | Care Yarn Rewinder Name | Role | Phone | [...] of this encounter Progress Notes Interface, Sales Recruiting Coordinator In - 01/12/2005 10:09 AM PDT [id number] GEOVANNI Barnes Clinic Date: 12/12/2004 Clinic: Endocrinology PHONE CONTACT NOTE The patient called me today after having surgery last week here at [facility]. Her concern was the development of 2 [...] cushion which I have ordered today through [employer], phone #[phone] and fax #[phone]. Today, the patient will monitor the decubiti closely and will be in touch with myself and her other physician depending on the progress. She also still has [address], which may be removed in one or two weeks when she returns to the Surgery Clinic at [facility]. Beto Meeks M.D. PD / HS [id number] / [id number] / [id number] / [id number] cc: Chris Padgett M.D. documented i n this encounter Plan of Treatment Not on filedocumented as of this encounter Visit Diagnoses Not on filedocumented in this encounter"
--- OUTSIDE RECORDS SUMMARY | ~2020-01-25 | XMS | Encounter Summary ---
Demographics + + + | Address | [address] | | | [place] [address] | + + + | Home Phone [...] order); | | | | Ave Mailcode: [facility] | [address] | Diarrhea | | | | [facility] | [place], [place] | | | | | and Healing, | [address] | | | | | [place] [address] [facility] | [phone] | | | | | [place], [place] | | | | | | [address] | | | | | | [phone] | | | +--------+ + + + [...]
--- OUTSIDE RECORDS SUMMARY | ~2020-01-25 | XMS | Encounter Summary ---
Demographics + + + | Address | [address] | | | [place] [address] | + + + | Home Phone [...] Providers + +------+ + | Care Work Order Detailer Name | Role | Phone | [...] + | 01/05/ | Telephone | [facility] | Luther Brito MD | Results | | 2017 | | GASTROENTEROLOGY | [address] | | | | | [address] [facility] | [place], [place] | | | | | [address] [place], [place] | [address] | | | | | [address] | [phone] | | | | | [phone] | | | +--------+ + + + [...] | | | | | [place] [address] | | | | | | [phone] | | | | | | | | +--------+---------+ + + + documented as of this encounter Visit Diagnoses Not on filedocumented in this encounter"
--- OUTSIDE RECORDS SUMMARY | ~2020-01-25 | XMS | Encounter Summary ---
Demographics + + + | Address | [address] | | | [place] [address] | + + + | Home Phone [...] Providers + +------+ + | Care Simulation Analyst Name | Role | Phone | + +------+ + | Petrona Thapa | PCP | | | MD | | | + +------+ + Encounter Details +--------+ + + + + | Date | Type | Department | Care Team | Description | +--------+ + + + + | 07/16/ | Orders Only | [facility] | Alanis, | | | 2017 | | MED CTR OP INFUSION | MD Petrona | | | | | [address] | [address] [facility] | | | | | [place], [place] | [place] [address] | | | | | [address] | [phone] | | | | | [phone] | | | +--------+ + + + [...] | | | | | [place] [address] | | | | | | [phone] | | | | | | | | +--------+---------+ + + + documented as of this encounter Visit Diagnoses Not on filedocumented in this encounter"
--- OUTSIDE RECORDS SUMMARY | ~2020-01-25 | XMS | Encounter Summary ---
Demographics + + + | Address | [address] | | | [place] [address] | + + + | Home Phone [...] Providers + +------+ + | Care Cnc Wood Lathe Operator Name | Role | Phone | + +------+ + | Petrona Thpaa | PCP | | | MD | | | + +------+ + Encounter Details +--------+ + + + + | Date | Type | Department | Care Team | Description | +--------+ + + + + | 10/04/ | Documentati | [facility] | Alanis, | | | 2019 | on | MEDICINE [address] | MD Petrona | | | | | [place], | [address] [facility] | | | | | [place] [address] | [place] [address] | | | | | [phone] | [phone] | | | | | | | [...] | | | | | [place] [address] | | | | | | [phone] | | | | | | | | +--------+---------+ + + + documented as of this encounter Visit Diagnoses Not on filedocumented in this encounter"
--- OUTSIDE RECORDS SUMMARY | ~2020-01-25 | XMS | Encounter Summary ---
Demographics + + + | Address | [address] | | | [place] [address] | + + + | Home Phone [...] Providers + +------+ + | Care System Architect Name | Role | Phone | [...] [address] [place] | [address] | chronicity (Primary | | | | [place] | [place] [address] | Dx) | | | | [address] | [phone] | | | | | [phone] | | | +--------+ + + + [...] | | | | | [place] [address] | | | | | | [phone] | | | | | | | [...]
--- OUTSIDE RECORDS SUMMARY | ~2020-01-25 | XMS | Encounter Summary ---
Demographics + + + | Address | [address] | | | [place] [address] | + + + | Home Phone [...] Providers + +------+ + | Care Valve Tester Name | Role | Phone | [...] | Pain | Diagnoses | [place], | [place], | | | | Management | LBP (low | NIHARIKA Jean | Lukasz Rhodes, PhD | | | | | back pain) | [address] | [address] | | | | | DJD | [address] | Ave | | | | | (degenerativ | [place], [place] | [place] | | | | | e joint | [address] | [address] | | | | | disease) of | | Phone: | | | | | knee Knee | | [phone] | | | | | pain Major | | Fax: | | | | | depressive | | [phone] | | | | | disorder, | [...] 03/03/ | Office | [facility] Center at [facility] | Lukasz Charles, | Major Depressive | | 2007 | Visit | [address] | PhD [address] | Disorder, Recurrent | | | | [facility] | [place], [place] | Episode, Moderate | | | | and Healing, | [address] | ([facility]); LBP (Low Back | | | | | [phone] | Pain); Bilateral | | | | Floor [place], [place] | | Knee Pain; | | | | [address] | | Fibromyalgia | | | | [phone] | | syndrome 729.1; | | | [...] a lot and is going to the [facility] regularly. She mentioned that she is taking [...] seems to be doing good self-care. Diagnosis: Beverly I: 1. (296.32) Major depressive disorder, recurrent, moderate. 2. (309.24) Adjustment disorder with anxiety. 3. (307.89) Chronic pain disorder associated with both psychological factors and a gene ral medical condition. Beverly II: Deferred Beverly III: abdominal pain, migraine headache, low back pain. Beverly IV: low finances Beverly V: GAF 55-60 Plan: return with next medical follow-up appointment. Check mood, pain, relaxation, activ ity, distraction, eating. Continue cognitive/behavioral therapy. Total time spent with patient was approximately 45 minutes. LUKASZ CHARLES PHD [facility] [address] [facility], 4th [place] [address] documented in this encount er Plan of Treatment + + +--------+ + + | Name | Type | Priori | Associated Diagnoses | Order Schedule | | | | ty | | | + + +--------+ + + | FL PSYCHOTHERPY, | Procedures | Routin | Major Depressive | Ordered: 03/03/2008 | | OFFICE (77-50) | | e | Disorder, Recurrent | [...]
--- OUTSIDE RECORDS SUMMARY | ~2020-01-25 | XMS | Encounter Summary ---
Demographics + + + | Address | [address] | | | [place] [address] | + + + | Home Phone [...] Team Providers + +------+ + | Care Coining Press Operator Name | Role | Phone [...] | | | | behavior of | [facility] | Orthopaedics | | | | | bone and | & Fractur | [address] | | | | | articular | [address] | Naeem Mcrae | | | | | cartilage | [address] | Rd | | | | | Procedures | [place], | [place], [place] | | | | | REQUEST TO | [place] [address] | [address] | | | | | SURGERY | Phone: | | | | | | [facility] | [phone] | | | | | | [place] BONE | Fax: | | | | | | BIOPSY,OPEN | [phone] | | | | | | DEEP [place] | | | | | | | EXCIS/CURET | | | | | | | BENIGN TUMR | | | | | | | CLAV/SCAPULA | | | | | | | [place] EXCIS | | | | | | | BENIGN TUMR | | | | | | | CLAV/SCAP,AU | | | | | | | TOGRFT [place] | | | | | | [...] | | | | | | | [facility] | Orthopaedics | | | | | | & Fractur | [address] | | | | | | [address] | Naeem Mcrae | | | | | | [address] | [place] | | | | | | [place], | [place], [place] | | | | | | [place] [address] | [address] | | | | | | Phone: | | | | | | | [phone] | | | | | | | Fax: | | | | | | | [phone] | | +--------+--------+ + + + + [...] | (Primary Dx) | | | | [place], [place] | | | | | | [address] | | | | | | [phone] | | | +--------+---------+ + + + [...] 08/2007 right knee Hx lumbar fusion 05/2008 [id number] with bone spur removals Hx appendectomy Hx cholecystectomy Hx section Hx hysterectomy Gastric bypass Mayra Padgett wt 278 01/18 Paniculectomy Allergies: Allergies Allergen Reactions Keflex (Cephalexin) Sulfa (Sulfonamides) Codeine Penicillins Clindamycin Cipro (Ciprofloxacin) Tramadol Morphine IM ( only in [facility]) made gut pain worse 08/27/06: Trial of oral MSIR caused leg swelling Clarithromycin Hives Mainly in the legs Cbvxfda-fidordhvvs-dnt-caff Balance problems Amitriptyline Grand mal seizures Medications: [...] signs are noted as recorded by the Tassel Maker. General: Alert, awake, and oriented x3. No [...] No: | | | | | | [id number] Name: | | | | | | BELINDA MEEHAN | | | | | | Birthday: 1960 | | | | | | Sex: F | | | | | | Alias:Patient Location: | | | | | | [id number]: Outpatient | | | | | | ActiveOrdering | | | | | | Physician: JOSÉ MIGUEL | | | | | | MARYSOL MORENO SCAPULA | | | | | | COMPLETE completed on | | | | | | 01/01/2009 11:55 | | | | | | AMAccession # | | | | | | [id number]:LEFT | | | | | | SCAPULA [...]
--- OUTSIDE RECORDS SUMMARY | ~2020-01-25 | XMS | Encounter Summary ---
Demographics + + + | Address | [address] | | | [place] [address] | + + + | Home Phone [...] Providers + +------+ + | Care It Specialist Name | Role | Phone [...] | | | 2006 | Registratio | [facility] | [address] | | | | n | [place] Mailcode: [id number] | [place], [place] | | | | | [place], [place] | [address] | | | | | [address] | [phone] | | | | | [phone] | | | +--------+ + + + [...] + + | [facility] | [address] | [place] [address] | | | LABORATORY | | | [...] [address] | | | | | | [facility], [place], [place] | | | | | | [address] | | | | | | [phone] | | | | | | Sincere [...] [facility] | [address] | [place], [place] | | | [facility] | | [address] | | + + + + + documented in this encounter Visit Diagnoses Not on filedocumented in this encounter"
--- OUTSIDE RECORDS SUMMARY | ~2020-01-25 | XMS | Encounter Summary ---
Demographics + + + | Address | [address] | | | [place] [address] | + + + | Home Phone [...] Team Providers + +------+ + | Care Code And Test Clerk Name | Role | Phone | [...] [facility] | [address] | Spondylosis with | | | | [place] [address] | Clementina Winkler [place], | Myelopathy, Lumbar | | | | [address] [facility] | [place] [address] | Region; Herniated | | | | [facility], | | Lumbar | | | | Building | | Intervertebral Disc | | | | Floor [place], [place] | | L4-5; Fibromyalgia | | | | [address] | | syndrome 729.1 | | | | [phone] | | | +--------+---------+ + + + [...] Date: December 02, 2006 Patient: Belinda Meehan, [id number], 1960 I agree with the proposed Physical Therapy Treatment Plan. Provider: DELFINA MOLINA ANP Nathalia Garrett - 007 4:49 PM PDT Physical Therapy Medicare Progress Note Date: 09/09/2006 Belinda Meehan [id number]. 1960 Start of Care: 06/23/2006 Referring Provider: [...] with walking and sitting; driving back to [place] 2 weeks ago, stopped at rest place and got out of care, falling onto B knees, getting better. Objective: Apparently patient's trip home 2 weeks ago was most likely related to her positi oning, ie B knees were hyperflexed for a prolonged time. She has not fallen since then, use s her lofstrand crutches consistently. Functionally, patient is walking 25 minutes at [employer] at least daily and tolerating it we [...] able to prepare a meal using the [employer]. Plan: Patient has 2 f/u visits remaining, will progress in core stabilization regime to fac ilitate improving function. Treatment began: 0 Treatment ended: 0 Nathalia Arora, Physical Therapist License #[id number] documented in this encoun ter Plan of [...] [place] THERAPEUTIC | Procedures | Routin | Neck [...]
--- OUTSIDE RECORDS SUMMARY | ~2020-01-25 | XMS | Encounter Summary ---
Demographics + + + | Address | [address] | | | [place] [address] | + + + | Home Phone [...] Providers + +------+ + | Care Weight And Balance Control Agent Name | Role | Phone | + +------+ + | Pedrito Gutierrez MD | PCP | | + +------+ + Encounter Details +--------+ + + + + | Date | Type | Department | Care Team | Description | +--------+ + + + + | 12/26/ | Telephone | [facility] Comprehensive | Lukasz Ogden, | | | 2007 | | Pain Center at | PhD [address] | | | | | [facility] | [place], [place] | | | | | [address] | [address] | | | | | [facility] | [phone] | | | | | and Healing, | | | | | | Building | | | | | | Floor [place], [place] | | | | | | [address] | | | | | | [phone] | | | +--------+ + + + [...]
--- OUTSIDE RECORDS SUMMARY | ~2020-01-25 | XMS | Encounter Summary ---
Demographics + + + | Address | [address] | | | [place] [address] | + + + | Home Phone [...] Team Providers + +------+ + | Care Chocolate Molder Name | Role | Phone | [...] | | | | Clinical Nutrition | [place], [place] | | | | | [address] | [address] | | | | | Loop Mailcode: OPC5 | [phone] | | | | | Outpatient Clinic | | | | | | [facility], | | | | | | [place] [address] | | | | | | [phone] | | | +--------+ + + + [...]
--- OUTSIDE RECORDS SUMMARY | 2020-01-25 16:16 | XMS ---
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 Care History Medical/Surgical 12/14/2018 [facility] HISTORY:\T\nbsp; SPINE SURGERY - [facility] [place] ([phone]) HX: MENIERE\T\#39; S SYNDROME (HAS RX FOR MECLIZINE THROUGH PCP DR CLEMENCIA FETNON); MIGRAINES;OSTEOARTHRITIS;SCOLIOSIS;DUMPING SYNDROME;IBS CHRONIC PAIN. 11/10/2018 [facility] - [facility] CONTACTED PATIENT. PATIENT HAS A PCP APT WITH PCP OFFICE ON 11/15/18 FOR ER FOLLOW UP. Mona VISIT COUNT (12 MO.) 6 [facility] TOTAL 6 NOTE: Visits indicate total known visits. ED/UCC VISIT TRACKING (12 MO.) 01/25/2020 16:14 [facility] [place] TYPE: Emergency COMPLAINT: - L SIDE CHEST SORE 12/13/2019 19:11 [facility] [place] TYPE: Emergency COMPLAINT: - NAUSEA, HEADACHE DIAGNOSES: - Personal history of nicotine dependence - Allergy status to penicillin - Other shelter (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 - Allergy status to sulfonamides status - Migraine, unspecified, not intractable, without status migrai - Allergy status to narcotic agent status - Allergy status to other antibiotic agents status - Allergy status to other drugs, medicaments and biological sub 11/17/2019 21:04 [facility] [place] TYPE: Emergency COMPLAINT: - LEFT ANKLE PAIN DIAGNOSES: - Other shelter (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 - Personal history of [...] status to analgesic agent status - 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 truck driver (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 - Vomiting, unspecified - [...] status to narcotic agent status - 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
== END 2020-01-25 16:40 | disposition home or self-care (01) ==
LOC: ED 16:12
DX: L98.9 Disorder of the skin and subcutaneous tissue, unspecified (principal)

== ENCOUNTER 2020-02-29 06:12 | Emergency (ER) | payer MEDICARE, OTHER ==
[~2020-02-29] VITALS: Ht 167.6 cm; Wt 90.7 kg
--- OUTSIDE RECORDS SUMMARY | ~2020-02-29 | XMS | Encounter Summary ---
Demographics + + + | Address | [address] | | | [place] [address] | + + + | Home Phone | | + + + | Preferred Language | Unknown | + + + | Marital Status | Single | + + + | Shinto Affiliation | ADV | + + + | Race | White | + + + | Ethnic Group | Not or | + + + Author + + + | Author | [facility] | + + + | Organization | [facility] | + + + | Address | [...] Team Providers + +------+ + | Care Customer Development Manager Name | Role | Phone | + +------+ + | Pedrito Gutierrez MD | PCP | | + +------+ + Reason for Visit +--------+ + | Reason | Comments | +--------+ + | Pain | all over | +--------+ + Encounter Details +--------+---------+ + + + | Date | Type | Department | Care Team | Description | +--------+---------+ + + + | 05/28/ | Office | [facility] | Delfina Molina, | LBP (Low Back Pain); | | 2006 | Visit | Pain Center at | ANP | Bilateral Knee | | | | [facility] | | Pain; Arthroplasty | | | | [address] | | of the Left Knee; | | | [facility] | | Encounter for | | | | and Healing, | | Long-Term (Current) | | | | Building | | Use of Opioids; | | | | Floor [place], [place] | | Migraine Headache; | | | | [address] | | Herniated Lumbar | | | | [phone] | | Intervertebral Disc | | | | | | L4-5; Fibromyalgia | | | | | | syndrome 729.1; | | | | | | Major Depressive | | | | | | Disorder, Recurrent | | | | | | Episode, Moderate | | | | | | (HCC); Adjustment | | | | | | Disorder with | | | | | | Anxiety; Spondylosis | | | | | | with Myelopathy, | | | | | | Lumbar Region; | | | | | | Hypothyroidism | +--------+---------+ + + + Social History [...] + + + | Blood Pressure | 108/61 | 05/28/2007 10:01 AM | | | | | PST | | + + + + + | Pulse | 78 | 05/28/2007 10:01 AM | | | | | PST | | + + + + + | Temperature | 37.9 C (100.2 F) | 05/28/2007 10:01 AM | | | | | PST | | + + + + + | Respiratory Rate | 16 | 05/28/2007 10:01 AM | | | | | PST | | + + + + + | Oxygen Saturation | 95% | 05/28/2007 10:01 AM | | | | | PST | | + + + + + | Inhaled Oxygen | - | - | | | Concentration | | | | + + + + + | Weight | 90.8 kg (200 lb 3.2 | 05/28/2007 10:01 AM | | | | oz) | PST | | + + + + + | Height | 175.3 cm (5' 9") | 05/28/2007 10:01 AM | | | | | PST | | + + + + + | Body Mass Index | 29.56 | 05/28/2007 10:01 AM | | | | | PST | | + + + + + documented in this encounter Patient Instructions Patient Instructions Delfina Molina - 05/28/2007 11:05 AM PSTDecrease Trileptal by 1/2 tab let (75 mg) every 5 days till noted change in migraines or pain, keep decreasing in this man ner till off. Continue with Oxycontin 40mg, 1 tablet every 12 hours Follow up with Dr. Brenda SHEEHAN For ongoing prescribing and management of leg swelling asses sment. documented in this encounter Progress Notes Delfina Molina - 05/28/2007 11:00 AM PSTFormatting of this note might be different from lesli gomez. 05/28/2007 Belidna Meehan is a 47 y.o. female [facility] Pain Center Return Visit Chief Complaint: Chief Complaint Patient presents with Pain all over History of Present Illness: Belinda Meehan is a 47 y.o. year-old female with a history of chronic pain due to 724.2AF LBP (Low Back Pain) 719.46J Bilateral Knee Pain V43.65D Arthroplasty of the Left Knee V58.69 Encounter for Long-Term (Current) Use of Opioids 346.90D Migraine Headache 722.10H Herniated Lumbar Intervertebral Disc L4-5 729.1 Fibromyalgia syndrome 729.1 296.32 Major Depressive Disorder, Recurrent Episode, Moderate 309.24 Adjustment Disorder with Anxiety 721.42 Spondylosis with Myelopathy, Lumbar Region 244.9AQ Hypothyroidism Expectations for this visit include discuss medications and her PCP not being willing to pr escribe the oxycodone for BTP. A Brief Pain Inventory and a pain drawing has be completed, which I reviewed. Current pain intensity on a VA Scale 0-10 is: 10 with current therapy providing 10% relief of pain. The worst pain today is located in the both legs last couple of weeks and described as achi ng Made better by nothing , and made worse by prolonged sitting. Treatment since last visit includes: medication management and physical therapy twice a wee k, she reports seeing "not a whole lot lately", Swelling not changed. No followup with Buzz Vasquez till next month. Since prior visit, mood is reported to be: frustration, more days with poor memory she asks about the Trileptals role in this? E.g. Prone to tears, not remembering asking people to do things "forgetfull a lot more lately" and sleep reported to be poor. She reports not driv ing. Tried in past for pain: Morphine fenatnyl and oxycontin, neurontin, trileptal, lyrica, TCA s, wellbutrin Review of Systems: Bones, Joints, and Muscles: joint pain both knees and back, muscle pain, stiffness and swe lling Gastrointestinal System: negative and change in appetite Genitourinary System: negative Nervous System: weakness and headache Psychiatric History: depressed mood, sleep disturbance, decreased interest in previously e njoyable activities, decreased energy, decreased or increased appetite and social withdrawal Since prior visit, there have been no changes in past medical history, past surgical histor y, family history, or social history. Resently seen endocrinology for metabolic syndrome and hypothyroidism ED visit [facility]: for pain and found she had a fever 103.1, Doppler US of the legs negative blood clots. Blood work. Xrays of the knees and legs and whole spine. Rheumatology: TPI and percocet #60 Current outpatient prescriptions Medication Sig Dispense Refill Oxcarbazepine (TRILEPTAL) 150 mg Oral Tablet one tablet twice daily Oxycodone-Acetaminophen 7.5-325 mg Oral Tablet take 1 tablet by oral route every 6 hour s as needed 60 0 Procaine HCl 1 % Injection Solution procaine 0.5% 12 cc 0 Cyanocobalamin 1,000 mcg/mL Injection Syringe 1 inj q month Multivitamin Oral Tablet 1 tab po bid Risedronate Sodium (ACTONEL) 35 mg Oral Tablet 1 tab po q week Ferrous Sulfate 325 (65) mg Oral Tablet take 1 tablet (325 mg) by oral route 3 times pe r day Docusate Sodium 100 mg Oral Tablet take 1 tablet (100 mg) by oral route once daily at b edtime as needed Oxycodone HCl (OXYCONTIN) 40 mg Oral Tablet Sustained Release 12 hr take 1 tablet (40mg ) by mouth every 12 hours 60 0 Omeprazole (PRILOSEC) 20 mg Oral Capsule, Delayed Release(E.C.) take 1 capsule (20 mg) by oral route once daily before a meal LEVOTHYROXINE OR takes .05mg daily Furosemide (LASIX) 80 mg OR TABS take 1 tablet (40mg) by oral route once daily POTASSIUM CHLORIDE SR 20 MEQ TAB, PARTICLES/CRYSTALS take 1 tablet (20meq) by oral rout e once daily with food PROMETHAZINE 25 MG TAB take 1 tablet (25mg) by oral route once daily at bedtime CALCIUM 600 WITH VITAMIN D OR ( 400 unit of Vit D) 1 tab 4 x daily VITAMIN C 500 MG CHEWABLE TAB four times a day Side effects:Trileptal causing memory loss Past Medical History Diagnosis Date Chronic Abdominal Pain on Oxycodone, NSAIDs, ASA RUQ u/s at OSH reportedly nl panc, bile ducts, liver; ct abd/pel normal, Colorectal Polyps Internal Hemorrhoid Benign Tumor of Colon 2005 endoscopy Vertebral Fracture T7,8,9 Xray T spine 2003 Optic Nerve Hemorrhage left eye Reduced Vision Sleep Apnea Kidney Stone Fibromyalgia Past Surgical History Procedure Date Gastric bypass C. Deveney wt 278 01/18 Paniculectomy Hx cholecystectomy Hx salpingo-oophorectomy Colonoscopy 03/2006 Hx tonsillectomy Pr d&c after delivery Pr inject trigger point, 1 or 2 Hx knee replacement 02/2007 Left knee Hx hysterectomy Hx section Family History Problem Relation Cancer Mother Heart Father Additional Family History Father Migraine Additional Family History Mother Migraine Physical examination: BP 108/61 | Pulse 78 | Temp (Src) 100.2 F (37.9 C) (Oral) | Resp 16 | Ht 1.753 m (5' 9" ) | Wt 90.810 kg (200 lbs 3.2 oz) | SpO2 95% Body mass index is 29.56 kg/(m^2). General appearance: Falt affect, alert in no acute distress, well groomed, pleasant Left knee larger than right, bilateral leg edema 2+ pitting to ankle, pedal pulses present DP and TP bilaterally , warm and no discoloration. Tenderness generalized with pressure and palpation. Impression: 724.2AF LBP (Low Back Pain) 719.46J Bilateral Knee Pain V43.65D Arthroplasty of the Left Knee V58.69 Encounter for Long-Term (Current) Use of Opioids 346.90D Migraine Headache 722.10H Herniated Lumbar Intervertebral Disc L4-5 729.1 Fibromyalgia syndrome 729.1 296.32 Major Depressive Disorder, Recurrent Episode, Moderate 309.24 Adjustment Disorder with Anxiety 721.42 Spondylosis with Myelopathy, Lumbar Region 244.9AQ Hypothyroidism Belinda Meehan is a pleasant 47yo obese female with chronic pain due to degenerative spin e and joint disease S/p left knee arthroplasty, here today for a follow up visit to review c hronic pain management plan of care. Since prior visit this her pain conditions have not ch anged, swelling has not improved in the left knee. She does have new paindue to swelling in both legs which has all the appearance of lymphedema etiology not known possibly from a met abolic imbalance, cardiac dysfunction, sedentary lifestyle, medications. I asked Belinda to follow up with her PCP for further assessment. Swelling is not a side effect of Trileptal h owever she is having memory deficits, I would like her to decrease her dose and see if this improves without compromising her migraine control. Our treatment plans for chronic lower back pain which was her major pain complaint has been postponed due to the knee surgery she is stable on her opioid therapy has been compliant wi th all aspects of chronic opioid therapy , is using the medication as directed, demonstrates benefits, and has no serious adverse effects. There were no significant cognitive or mood i mpairments. There is no evidence of diversion past or present. Recommendations/Plan: A 30 minute visit with greater than 50% spent in reviewing the progress notes and counselli ng/education of the patient. 1. Due to adverse effects of memory deficits: - Patient instructed to gradually decrease Trileptal by 1/2 tablet (75 mg) every 5 days, ti ll noted change in migraines or pain, keep decreasing in this manner till off. - Patient denies severe fatigue, muscle weakness SOB all concerns for hyponatremia. I will check her lad results from her ED visit this should include a BMP. 2. Continue with Oxycontin 40mg, 1 tablet every 12 hours 3. I would like to discuss with Dr Chencho SHEEHAN facilitating PRN opioid therapy I called and l eft a voice message with his clinic at 1115 today asking he call me back on this. - In my clinical experience Oxycontin does not last for as long as the indicated 12 hours a nd PRN analgesia is usually necessary for more stable pain contro,l dosed between the schedu led Oxycontin. I recommend Dr. Gutierrez consider prescribing oxycodone 5mg, 1-2 tablets Q6-8 hour PRN pain not to exceed 4 tablets per day. 4. Follow up with Dr. Brenda SHEEHAN for opioid prescribing; and monitoring of leg swelling/ass essment 5. I have requested copies of the ED visit with diagnostics and lab results. 6. COntinue with [facility] knee Post arthroplasty physical rehabiliation. 7. Schedule follow up in one month or sooner if needed - The pateint was asked to call the clinic with any concerns or questions. DELFINA MOLINA [facility] Mail code CH 4P [facility] and [address] [place] [address] asha Nolasco - 05/28/2007 10:01 AM PSTCMA History: PMH/PSH/SH/FH review 1. Has your pain changed from your last visit? increased 2. Do you have any new weakness or decrease in sensation? yes Pt has some edema bi-lateral feet and legs x 1 week now pt take 80mg of lasix a day pt states that she had a fever yeste rday of 103.2 she was seen here at [facility] today the temp is 100.2 3. Do you have any difficulty with urination? Yes There are times that she has a hard [place] e with starting and then there are times that she is running to bathroom every few minitues 4. How often do you have a bowel movement? once daily Some times 3-4 times a day 5. Are you having difficulties with sexual function? Yes 6. Do your medications cause any side effects? no 7. Have you had physical therapy appointments since your last visit? no 8. Have you had psychology appointments since your last visit? Yes today Dr Ogden 9. Have you had any diagnostic studies since your last appointment? Yes UA 2 days ago With PCP 10. Do you require any medication refills today? no documented in this encounte r Plan of Treatment Not on filedocumented as of this encounter Visit Diagnoses + + | Diagnosis | + + | LBP (low back pain) Lumbago | + + | Bilateral Knee Pain Pain in joint, lower leg | + + | Arthroplasty of the Left Knee Knee joint replacement by other means | + + | Encounter for Long-Term (Current) Use of Opioids Encounter for long-term (current) | | use of other medications | + + | Migraine headache Migraine, unspecified, without mention of intractable migraine | | without mention of status migrainosus | + + | Herniated Lumbar Intervertebral Disc L4-5 Displacement of lumbar intervertebral disc | | without myelopathy | + + | Fibromyalgia syndrome 729.1 Mylagia and myositis, unspecified | + + | Major depressive disorder, recurrent episode, moderate (HCC) Major depressive | | disorder, recurrent episode, moderate | + + | Adjustment disorder with anxiety | + + | Spondylosis with myelopathy, lumbar region | + + | Hypothyroidism Unspecified hypothyroidism | + + documented in this encounter
--- OUTSIDE RECORDS SUMMARY | ~2020-02-29 | XMS | Encounter Summary ---
Demographics + + + | Address | [address] | | | [place] [address] | + + + | Home Phone | | + + + | Preferred Language | Unknown | + + + | Marital Status | Single | + + + | Mormon Affiliation | ADV | + + + | Race | White | + + + | Ethnic Group | Not or | + + + Author + + + | Author | [facility] | + + + | Organization | [facility] | + + + | Address [...] Team Providers + +------+ + | Care Calendering Machine Operator Name | Role | Phone | + +------+ + PCP | Unavailable | + +------+ + Reason for Visit + +--------+ + | Reason | Onset | Comments | | | Date | | + +--------+ + | Abdominal pain | 01/13/ | | | | 2005 | | + +--------+ + Encounter Details +--------+ + + + + | Date | Type | Department | Care Team | Description | +--------+ + + + + | 01/13/ | Telephone | [facility] | Nuris Cardenas ANP | Abdominal pain | | 2005 | | [place] [facility] | | | | | | [address] | | | | | | Mailcode: [id number] | | | | | | [facility] | | | | | | [place], [place] | | | | | | [address] | | | | | | [phone] | | | +--------+ + + + [...] this encounter Miscellaneous Notes Telephone Encounter - Nuris Cardenas Rn - 01/13/2006 10:23 AM PDTNothing new. Still has abdo brett pain. ER two days ago. PCP has scheduled abd. U/S and abd/pelvic CT this week. Pt. will bring reports for Dr. Padgett to appt. on 01/22. Wants colonoscopy. Told her PCP could order or she can discuss with Dr. Padgett. She says she is having frequent loose stools th at change color from dark brown to yellow. No bright red blood or dark tarry stools. State s several family members with colon ca. Closest relative with colon ca was maternal grandfa ther. elephone Encounter - 01/13/2006 10:19 AM PDT Staff Message copied by NURIS CARDENAS on 01/13/2006 at 10:19 AM ------ Message from: DIRK BONDS Created: 01/12/2006 at 11:12 AM Regarding: CD pt/Abdominal pain Contact: Patient has appointment 01/22, but requested a call today regarding her ED visit yesterday for abdominal pain. Thank you. Dirk Bonds documented in this enco unter Plan of Treatment Not on filedocumented as of this encounter Visit Diagnoses Not on filedocumented in this encounter"
--- OUTSIDE RECORDS SUMMARY | ~2020-02-29 | XMS | Encounter Summary ---
Demographics + + + | Address | [address] | | | [place] [address] | + + + | Home Phone | | + + + | Preferred Language | Unknown | + + + | Marital Status | | + + + | Gnosticism Affiliation | 1001 | + + + | Race | White | + + + | Ethnic Group | Not or | + + + Author + + + | Author | [facility] | | | and [place] | + + + | Organization | [facility] | | | [...] Team Providers + +------+ + | Care Farm Forestry And Garden Workers Name | Role | Phone | + +------+ + | Petrona Thapa | PCP | | | MD | | | + +------+ + Reason for Visit Evaluate & Treat (Routine) +--------+--------+ + + + + | Status | Reason | Specialty | Diagnoses / | Referred By | Referred To | | | | | Procedures | Contact | Contact | +--------+--------+ + + + + | Closed | | Physical | Diagnoses | | [place], | | | | Medicine and | Low back | [place] | Carlos Armijo MD | | | | Rehabilitatio | pain | i, | [address] | | | | n | | [place] | [address] | | | | | MD [address] | [place] | | | | | | [address] | [address] Phone: | | | | | | [place], | [phone] | | | | | | [place] | Fax: | | | | | | [address] | [phone] | | | | | | Phone: | | | | | | | [phone] | | | | | | | Fax: | | | | | | | [phone] | | +--------+--------+ + + + + Encounter Details +--------+---------+ + + + | Date | Type | Department | Care Team | Description | +--------+---------+ + + + | 11/28/ | Office | [facility] | Carlos Hsieh | NO SHOW (Primary Dx) | | 2014 | Visit | PHYSIATRY [address] | TMD [address] | | | | | [address] | [place] | | | | | [place] | [id number] | | | | | [address] | | | | | | [phone] | Joe, | | | | | | MARY Montero [address] | | | | | | [address] | | | | | | [place] [address] | | | | | | [phone] | | | | | | | [...] documented as of this encounter Progress Notes Catrina Kuo, Master of Arts - 11/28/2014 8:58 AM PDTChart opened in error. Patient did not show up for appointment. documented in this encounter Plan of Treatment +--------+---------+ + + + | Date | Type | Specialty | Care Team | Description | +--------+---------+ + + + | 05/17/ | Office | Internal Medicine | Alanis, | | | 2019 | Visit | | MD Petrona | | | | | | [address] [facility] [place] | | | | | | [place] [address] | | | | | | [phone] | | | | | | | | +--------+---------+ + + + documented as of this encounter Visit Diagnoses + + | Diagnosis | + + | No Show - Primary Code used for vists where the patient is not seen | + + documented in this encounter"
--- OUTSIDE RECORDS SUMMARY | ~2020-02-29 | XMS | Encounter Summary ---
Demographics + + + | Address | [address] | | | [place] [address] | + + + | Home Phone | | + + + | Preferred Language | Unknown | + + + | Marital Status | Single | + + + | Yarsanism Affiliation | ADV | + + + | Race | White | + + + | Ethnic Group | Not or | + + + Author + + + | Author | [facility] | + + + | Organization | [facility] | + + + | Address [...] Team Providers + +------+ + | Care Bass Singer Name | Role | Phone | + +------+ + PCP | Unavailable | + +------+ + Encounter Details +--------+ + + + + | Date | Type | Department | Care Team | Description | +--------+ + + + + | 08/06/ | Office | [facility] | Clinic, | Progress Note | | 2006 | Visit-Trans | | Rheumatology | | [...] as of this encounter Progress Notes Interface, Quantitative Equity Head In - 08/14/2005 2:05 AM PST [id number] [facility] Date: 08/06/2005 Clinic: Rheumatology Clinic Belinda Meehan is a 45-year-old woman here for followup of fibromyalgia and here for trigger point injections. She finds they last about 3 to 4 months with a significant reduction in pain wherever the injections are given. She has had recent surgery to resolve a kink in her bowel that the surgeon thinks has been occurring on and off for many years. This relieved a lot of the low abdominal pain that she had had. Medications: 1. Promethazine 25 mg p.r.n. 2. Oxycodone 5 mg 1 to 2 every 4 hours. 3. Wellbutrin 300 mg per day. 4. Vistaril 25 mg. 5. Multivitamin. 6. B12, 1000 mcg per day. 7. Ranitidine. 8. Diclofenac. 9. Magnesium. 10. Calcium D. 11. Vitamin C. Objective: Weight is 162, pulse 76 and regular, and blood pressure 100/68. She does have tender myofascial trigger points in the bilateral upper trapezius in 2 areas each and in the gluteus edwardo upper border bilaterally. Assessment and Plan: 1. We did go ahead and do trigger point injections in the areas listed in the objective section using 0.5% procaine for a total of 10 mL. She tolerated the injections well as usual. 2. I have given her the name of antiinflammatory diet that one of the railroad surveyor in [place] has written a book about, and I have had a patient do extremely well with it in terms of her IBS and fibromyalgia pain and fatigue. Belinda is interested in this and will pursue it. 3. I have given her a lot of articles that she can pass onto her physicians in [place]. She would like somebody there to learn to do trigger point injections, and I would be happy to have anybody who would like to come and visit with us for a day. 4. I have put in a referral to Mariama Arzate, physical therapist, who has a lot of success in treating some of the fibromyalgia patients using craniosacral therapy. Belinda may be able to come out once a month for that. She will also teach Belinda a lot of ways that she can calm the sympathetic nervous system which is always useful in fibromyalgia. I will see her back in about 4 months. Caitlin Rivera M.S., F.N.P. / [id number] / [id number] / [id number] / [id number] cc: Pedrito Gutierrez M.D. [address] [place] [address] Electronically signed by Caitlin Rivera 08-13-2005 03:37:47 PM documented i n this encounter Plan of Treatment Not on filedocumented as of this encounter Visit Diagnoses Not on filedocumented in this encounter"
--- OUTSIDE RECORDS SUMMARY | ~2020-02-29 | XMS | Encounter Summary ---
Demographics + + + | Address | [address] | | | [place] [address] | + + + | Home Phone [...] Author + + + | Author | [facility] | + + + | Organization | [facility] | + + + | [...] Team Providers + +------+ + | Care Business Applications Developer Name | Role | Phone | [...] Description | +--------+---------+ + + + | 12/21/ | Office | [facility] | Delfina Molina, | Left Knee Pain; DJD | | 2006 | Visit | Pain Center at | ANP | (Degenerative Joint | | | | [place] | | Disease) of Knee; | | | | [address] | | Pain in right Ankle | | | [facility] | | and Foot; Right Hip | | | | and Healing, | | Region Pain; | | | | Building | | Spondylosis with | | | | Floor [place], [place] | | Myelopathy, Lumbar | | | | [address] | | Region; Herniated | | | | [phone] | | Lumbar | | | | | | Intervertebral Disc | | | | | | L4-5; Fibromyalgia | | | | | | syndrome 729.1; | | | | | | Opioid Dependence, | | | | | | Continuous ([facility]); | | | | | | Major Depressive | | | | | | Disorder, Recurrent | | | | | | Episode, Moderate | | | | | | ([facility]); Adjustment | | | | | | Disorder with | | | | | | Anxiety; Migraine | | | | | | Headache | +--------+---------+ + + + Social History [...] + + + | Blood Pressure | 140/82 | 12/21/2006 12:45 PM | | | | | PDT | | + + + + + | Pulse | 88 | 12/21/2006 12:45 PM | | | | | PDT | | + + + + + | Temperature | 37 C (98.6 F) | 12/21/2006 12:45 PM | | | | | PDT | | + + + + + | Respiratory Rate | 16 | 12/21/2006 12:45 PM | | | | | PDT | | + + + + + | Oxygen Saturation | - | - | | + + + + + | Inhaled Oxygen | - | - | | | Concentration | | | | + + + + + | Weight | 84.8 kg (187 lb) | 12/21/2006 12:45 PM | | | | | PDT | | + + + + + | Height | 175.3 cm (5' 9") | 12/21/2006 12:45 PM | | | | | PDT | | + + + + + | Body Mass Index | 27.62 | 12/21/2006 12:45 PM | | | | | PDT | | + + + + + documented in this encounter Patient Instructions Patient Instructions Delfina Molina - 12/21/2006 1:26 PM PDT1. Oxycontin 20mg, take one t ablet every 12 hours. On schedule do not stop abruptly or change 2. Oxycodone 5mg, 1-2 tablets (5-10mg) every 4-6 hours PRN NTE 4 per day 3. Continue with Trileptal 150mg, 1 tablet twice a day 4. Return for psychology follow up in [address] Ogden PhD 5. Follow up in two weeks or call clinic before then with any concerns about your new treat ment. 6 Continue with local treatment for right foot issues and physical therapyElectronically si gned by Delfina Molina at 12/21/2006 1:28 PM PDT documented in this encounter Progress Notes Delfina Molina - 12/21/2006 12:59 PM PDTFormatting of this note might be different from th e original. 12/21/2006 Belinda Meehan is a 46 y.o. female [facility] Return Visit Chief Complaint: Chief Complaint Patient presents with Pain all over History of Present Illness: Belinda Meehan is a 46 y.o. year-old female with a history of chronic pain due to degnerative spine and joint disease. Belinda Meehan is here today for a follow unot improve dp visit to review chronic pain ma nagement plan of care. Since prior visit this condition has . She does not have new pain complaints on this visi t. Expectations for this visit include discuss other options for pain management other than th e patch as it is not sticking especially when doing pool therapy 1-2 days per week. Adverse effects with morphine ; body swelling Dr. Gutierrez not willing to prescribe methadone Oxycontin she has found effective with no adverse side effects A Brief Pain Inventory and a pain drawing has be completed, which I reviewed. Current pain intensity on a VA Scale 0-10 is: 9 The worst pain is located in the right low back, since her walking as been imbalanced and made difficult having the immobilizing boot on her right leg, [ right achilles tendon strain and connelly spur] and described as constant ache some shaprness. Made better by getting of feet, not walking Made worse by walking. She reports starting Physical therapy for the right foot pending left knee arthroplasty 02/13 12/19. New treatment since last visit includes: medication management with fentanyl 25mcg/hr patch Q72 hours. With the current medication regimen, Belinda Conteh pain is well controlled, using narcotic analgesics regularly daily in stable pattern with good pain control and allowed Anu rooney to be more functional. Since prior visit, mood is reported to be: "up and down right now, its this leg" and sleep unchanged Review of Systems: Bones, Joints, and Muscles: joint pain, muscle pain and stiffness Gastrointestinal System: abdominal pain Genitourinary System: negative Nervous System: headache Psychiatric History: depressed mood and sleep disturbance No evidence of aberrant mediation-related behaviors. Last urine toxicity screen was normal . No confusion or sedation with medications. Since prior visit, there have been no changes in past medical history, past surgical histor y, family history, or social history. Current outpatient prescriptions Medication Sig Dispense Refill Fentanyl 25 mcg/hr TD PT72 apply 1 patch (25mcg/h) by transdermal route every 72 hours 5 0 LEVOTHYROXINE OR takes .05mg daily Oxcarbazepine (TRILEPTAL) 150 mg OR TABS tab one po twice a day Furosemide (LASIX) 80 mg OR TABS take 1 tablet (40mg) by oral route once daily POTASSIUM CHLORIDE SR 20 MEQ TAB, PARTICLES/CRYSTALS take 1 tablet (20meq) by oral rout e once daily with food CYANOCOBALAMIN 1,000 MCG TAB 1 x monthly PROMETHAZINE 25 MG TAB take 1 tablet (25mg) by oral route once daily at bedtime CALCIUM 600 WITH VITAMIN D OR ( 400 unit of Vit D) 1 tab 4 x daily VITAMIN C 500 MG CHEWABLE TAB four times a day MULTI VIT-FLUORIDE OR bid ACTONEL 35 MG TAB take 1 tablet (35mg) by oral route once weekly in the morning, at dona st 30 minutes before the first food, beverage, or medication of the day Side effects: denies Past Medical History Diagnosis Date Chronic Abdominal Pain on Oxycodone, NSAIDs, ASA RUQ u/s at OSH reportedly nl panc, bile ducts, liver; ct abd/pel normal, Kidney Stone Colorectal Polyps Internal Hemorrhoid Benign Tumor of Colon 2006 endoscopy Vertebral Fracture T7,8,9 Xray T spine 2003 Optic Nerve Hemorrhage left eye Past Surgical History Procedure Date Gastric bypass Mayra Padgett wt 278 01/18 Paniculectomy Hx cholecystectomy Hx hysterectomy Hx salpingo-oophorectomy Colonoscopy 03/2006 Hx tonsillectomy Pr d&c after delivery Pr inject trigger point, 1 or 2 Family History Problem Relation Cancer Mother Heart Father Additional Family History Father Migraine Additional Family History Mother Migraine Physical examination: BP 140/82 | Pulse 88 | Temp (Src) 98.6 F (37 C) (Oral) | Resp 16 | Ht 1.753 m (5' 9") | Wt 84.823 kg (187 lbs) Body mass index is 27.61 kg/(m^2). General appearance: Alert in no acute distress, well groomed, pleasant Impression: 719.46J Left Knee Pain 715.36B DJD (Degenerative Joint Disease) of Knee 719.47 Pain in right Ankle and Foot 719.45F Right Hip Region Pain 721.42 Spondylosis with Myelopathy, Lumbar Region 722.10H Herniated Lumbar Intervertebral Disc L4-5 729.1 Fibromyalgia syndrome 729.1 304.01B Opioid Dependence, Continuous 296.32 Major Depressive Disorder, Recurrent Episode, Moderate 309.24 Adjustment Disorder with Anxiety 346.90D Migraine Headache Belinda Meehan was compliant with all aspects of chronic opioid therapy , is using the me dication as directed, demonstrates benefits, and has no serious adverse effects unfortunatel y the fentanyl is not sticking leaving Belinda short on treatment since Thursday12/19/06 she d enies any opioid withdrawal symptoms, she is interested in returning to the oxycontin. Ther e were no significant cognitive or mood impairments. There is no evidence of diversion past or present. She has multiple pain complaints one which is acute in her right foot which treatment aggre vates her chronic lower back pain [due to assymetrical gait] pending surgical intervention o f her left knee in February, she is stable on her medications therapy. There is no need to return to the [facility] till after her surgery recovering, at which time I would like to reassess her chronic pain status she will follow up with psychologist Dr. Ogden PhD also. Recommendations/Plan: A 30 minute visit with greater than 50% spent in reviewing the progress notes and counselli ng/education of the patient. 1. I held a PARQ disussion on chronic opioid analgesic therapy in particular with oxycontin with Belinda Meehan. We reviewed materials risk notice and [facility] opioid agreement. A ll questions were addressed with satisfaction. 2. Discontinue Fentanyl and take Oxycontin 20mg, take one tablet every 12 hours. 3. Oxycodone 5mg, 1-2 tablets (5-10mg) every 4-6 hours PRN NTE 4 per day 4. Continue with Trileptal 150mg bid 5. Return for psychology follow up in [address] Ogden PhD 5. F/o up in two weeks or call clinic before then with any concerns about your new treatmen t. 6. Consider regional anesthesia for right knee arthroplasty surgery to improve post op pain management and reduce opioid need. DELFINA MOLINA [facility] Mail code CH [facility]P [facility] and [address] [address] Ailyn Foster - 12/22/19 07 12:51 PM PDTCMA History: PMH/PSH/SH/FH review 1. Has your pain changed from your last visit? increased 2. Do you have any new weakness or decrease in sensation? no 3. Do you have any difficulty with urination? No 4. How often do you have a bowel movement? once daily 5. Are you having difficulties with sexual function? No 6. Do your medications cause any side effects? no 7. Have you had physical therapy appointments since your last visit? yes 8. Have you had psychology appointments since your last visit? yes 9. Have you had any diagnostic studies since your last appointment? no 10. Do you require any medication refills today? yes documented in this encount er Plan of Treatment Not on filedocumented as of this encounter Visit Diagnoses + + | Diagnosis | + + | Left Knee Pain Pain in joint, lower leg | + + | DJD (degenerative joint disease) of knee Osteoarthrosis, unspecified whether | | generalized or localized, lower leg | + + | Pain in right Ankle and Foot Pain in joint, ankle and foot | + + | Right Hip Region Pain Pain in joint, pelvic region and thigh | + + | Spondylosis with myelopathy, lumbar region | + + | Herniated Lumbar Intervertebral Disc L4-5 Displacement of lumbar intervertebral disc | | without myelopathy | + + | Fibromyalgia syndrome 729.1 Mylagia and myositis, unspecified | + + | Opioid dependence, continuous (HCC) Opioid type dependence, continuous | + + | Major depressive disorder, recurrent episode, moderate (HCC) Major depressive | | disorder, recurrent episode, moderate | + + | Adjustment disorder with anxiety | + + | Migraine headache Migraine, unspecified, without mention of intractable migraine | | without mention of status migrainosus | + + documented in this encounter
--- OUTSIDE RECORDS SUMMARY | ~2020-02-29 | XMS | Encounter Summary ---
Demographics + + + | Address | [address] | | | [place] [address] | + + + | Home Phone | | + + + | Preferred Language | Unknown | + + + | Marital Status | | + + + | Islam Affiliation | 1001 | + + + [...] Team Providers + +------+ + | Care Teacher Dramatics Name | Role | Phone | + +------+ + | Petrona Thapa | PCP | | | MD | | | + +------+ + Reason for Visit + +--------+ + | Reason | Onset | Comments | | | Date | | + +--------+ + | Care Coordination | 04/06/ | | | | 2017 | | + +--------+ + Encounter Details +--------+ + + + + | Date | Type | Department | Care Team | Description | +--------+ + + + + | 04/06/ | Telephone | [facility] | Alanis, | Care Coordination | | 2017 | | [address] | MD Petrona | | | | | [place], | [address] [place] | | | | | [place] [address] | [place] [address] | | | | | [phone] | [phone] | | | | | | | [...] this encounter Miscellaneous Notes Telephone Encounter - Erica Emerson RN - 04/06/2018 3:58 PM PDTPatient contacted me to report needs an inhaler for mouth as lungs are starting to present breathing trouble she's e xperienced previously. I have set up appt for 04/08/18 for post operative follow up from [facility]'s bowel obstruction surgery and new report of breathing concerns. I have also encour aged her to seek medical attention sooner or EMS system if necessary for evaluation of breat campbell concerns. She reports has scheduled transportation to office visit from [place].Elect ronically signed by Erica Emerson RN at 04/06/2018 4:04 PM PDTdocumented in this encounte r Plan of Treatment +--------+---------+ + + + | Date | Type | Specialty | Care Team | Description | +--------+---------+ + + + | 05/17/ | Office | Internal Medicine | Alanis, | | | 2019 | Visit | | MD Petrona | | | | | | [address] [place] | | | | | | [place] [address] | | | | | | [phone] | | | | | | | | +--------+---------+ + + + documented as of this encounter Visit Diagnoses Not on filedocumented in this encounter"
--- OUTSIDE RECORDS SUMMARY | ~2020-02-29 | XMS | Encounter Summary ---
Demographics + + + | Address | [address] | | | [place] [address] | + + + | Home Phone | | + + + | Preferred Language | Unknown | + + + | Marital Status | Single | + + + | Gnosticist Affiliation | ADV | + + + [...] Team Providers + +------+ + | Care Unix Engineer Name | Role | Phone | [...]
--- OUTSIDE RECORDS SUMMARY | ~2020-02-29 | XMS | Encounter Summary ---
Demographics + + + | Address | [address] | | | [place] [address] | + + + | Home Phone | | + + + | Preferred Language | Unknown | + + + | Marital Status | | + + + | Judaism Affiliation | 1001 | + + + [...] Team Providers + +------+ + | Care Slasher Tender Name | Role | Phone | + +------+ + | Petrona Thapa | PCP | | | MD | | | + +------+ + Reason for Visit + + + | Reason | Comments | + + + | Follow-up, Office | right leg swelling and hip pain | | Visit | | + + + Encounter Details +--------+---------+ + + + | Date | Type | Department | Care Team | Description | +--------+---------+ + + + | 11/17/ | Office | [facility] | Emmy-Tajti, | Bilateral leg edema | | 2018 | Visit | MEDICINE [address] | MD Petrona | (Primary Dx); Venous | | | | [address] [place], | [address] [place] | insufficiency; | | | | [place] [address] | [place] [address] | Fatigue, unspecified | | | | [phone] | [phone] | type | | | | | | [...] + + + | Blood Pressure | 112/60 | 11/17/2017 10:49 AM | | | | | PDT | | + + + + + | Pulse | 61 | 11/17/2017 10:49 AM | | | | | PDT | | + + + + + | Temperature | 36.7 C (98.1 F) | 11/17/2017 10:49 AM | | | | | PDT | | + + + + + | Respiratory Rate | 14 | 11/17/2017 10:49 AM | | | | | PDT | | + + + + + | Oxygen Saturation | 94% | 11/17/2017 10:49 AM | | | | | PDT | | + + + + + | Inhaled Oxygen | - | - | | | Concentration | | | | + + + + + | Weight | 99 kg (218 lb 4.1 | 11/17/2017 10:49 AM | | | | oz) | PDT | | + + + + + | Height | 172.7 cm (5' 8") | 11/17/2017 10:49 AM | | | | | PDT | | + + + + + | Body Mass Index | 33.19 | 11/17/2017 10:49 AM | | | | | PDT | | + + + + + documented in this encounter Progress Petrona Riojas MD - 11/17/2017 10:45 AM PDTFormatting of this note might be d ifferent from the original. CHIEF COMPLAINT Chief Complaint Patient presents with Follow-up, Office Visit right leg swelling and hip pain HPI Belinda Meehan is a 57 y.o. y/o female who presents today for worsening lower extremit ies edema especially on the right side in the last several days. She states her back pain h as gotten worse and she also has issues with her hips and her mobility has been less than us ual. She spent a fair amount of time sitting. She has a long history of venous insufficien cy with lower extremities edema and takes furosemide and torsemide as below. She has been feeling more fatigued than usual. No shortness of breath chest pain or palpitations. No history of congestive heart failure. REVIEW OF SYSTEMS See HPI for further [...] apnea Spondylosis with myelopathy, lumbar region Stroke ([facility]) Syncope Tremor Type II or unspecified type [...] OF UTERUS ELBOW SURGERY FINGER TRIGGER RELEASE 2003 FINGER TRIGGER RELEASE 2010 GASTRIC BYPASS SURGERY 2004 HYSTERECTOMY 05/14/1980 JOINT REPLACEMENT Bilateral 2006,2008 KNEE ARTHROSCOPY 2005 LAPAROSCOPY 01/27/2015 LAPAROTOMY 2008 ROTATOR CUFF REPAIR 2005 SPINE SURGERY TONSILLECTOMY 1964 CURRENT MEDICATIONS Current Outpatient Prescriptions Medication Sig Dispense Refill ascorbic acid (VITAMIN C) 500 mg tablet Take 500 mg by mouth Daily. betaxolol 0.5% ophthalmic suspension Place 1 drop [...] every 6 hour s. 120 tablet 3 ondansetron (ZOFRAN) 4 mg tablet Take 1 tablet by mouth See Admin Instructions. If naus ea with prep. Stop prep, take 1 tab by mouth,wait 30 min, restart prep may repeat 2 tablet 0 potassium chloride (K-DUR) 20 mEq ER tablet take 3 tablets by mouth every morning and 2 every evening with food 450 tablet 1 sodium sulfate-potassium sulfate-magnesium sulfate (SUPREP BOWEL PREP KIT) oral solutio n Take 177 mLs by mouth See Admin Instructions. Take one kit, first dose at 4pm December 17, se cond dose at 8pm December 17. 2 Bottle 0 sucralfate (CARAFATE) 1 g tablet Take 1 [...] Days Morelia Thapa MD 1,000 mcg at 11/17/17 1116 ALLERGIES Allergies Allergen Reactions Codeine Sulfate Nausea Only Levofloxacin Hives, Itching and Rash Amitriptyline Hcl Other (See Comments) Confused and questionable for seizures Xsirqgvndl-Kuuk-Hpfiwhef Cephalexin Hives Duloxetine Migraines and nausea Ketorolac Hives Morphine Swelling Ropinirole Hcl Hives Tramadol Hcl Nausea Only Yvhecqpagu-Qqmi-Ylemojry Hives and Rash Ciprofloxacin Hives and Rash Clarithromycin Hives and Rash Clindamycin Hcl Hives and Rash Doxycycline Rash Levofloxacin Hives and Rash Penicillins Hives and Rash Sulfamethoxazole-Trimethoprim Hives and Rash PHYSICAL EXAM VITAL SIGNS: BP 112/60 | Pulse 61 | Temp 36.7 C (98.1 F) (Temporal) | Resp 14 | Ht 1.727 m (5' 8") | Wt 99 kg (218 lb 4.1 oz) | SpO2 94% | BMI 33.19 kg/m Constitutional: Well developed, Well nourished, No acute distress, Pleasant female. Cardiovascular: Regular rate & rhythm, No murmurs, No rubs, No gallops. No lower extremitie s edema. Thorax & Lungs: Normal breath sounds, No respiratory distress, No wheezing, No rubs. Skin: Warm, stasis dermatitis changes in both lower extremities below knee, worse on the ri ght, no erythema or increased local temperature. Musculoskeletal: Reduced range of motion in lower back. Neurologic: Alert & oriented x 3, Normal motor function, Normal sensory function, No focal deficits noted. Psychiatric: Affect normal, Judgment normal, Mood normal. ASSESSMENT & PLAN 1. Bilateral leg edema - CBC with Differential; Future - Comprehensive Metabolic Panel; Future - TSH; Future - Sedimentation Rate; Future - D-Dimer; Future 2. Venous insufficiency - Sedimentation Rate; Future - D-Dimer; Future 3. Fatigue, unspecified type - TSH; Future - Sedimentation Rate; Future FOLLOW-UP Return in about 1 month (around 12/17/2017). Note: Parts of this documentwere created using [employer] ? speech recognition software. As a r esult, there may be unintended word spelling errors. Every attempt was made to correct the dictation. Lisa Recinos CMA - 11/17/2017 10:45 AM PDTFormatting of this note might be different from the origi nal. Administrations This Visit cyanocobalamin (VITAMIN B-12) injection 1,000 mcg Admin Date 11/17/2017 Action Given Dose 1000 mcg Route Intramuscular Administered By Valencia Govea CMA documented in this enc ounter Plan of Treatment +--------+---------+ + + + | Date | Type | Specialty | Care Team | Description | +--------+---------+ + + + | 05/17/ | Office | Internal Medicine | Alanis, | | | 2019 | Visit | | MD Petrona | | | | | | [facility] [address] | | | | | | [place] [address] | | | | | | [phone] | | | | | | | | +--------+---------+ + + + documented as of this encounter Results D-Dimer (11/17/2017 11:40 AM PDT) + + + + + + | Component | Value | Ref Range | Performed | Pathologist | | | | | At | Signature | + + + + + + | D-Dimer | 0.54 (H)Comment: This | <=0.50 ug/ml | [facility] | | | Quantitativ | quantitative D-Dimer | | [facility] | | | e | assay has been evaluated | | MEDICAL | | | | for screening for | | CENTER - | | | | venous thrombotic | | LABORATORY | | | | disease, and may be | | | | | | useful in ruling out, | | | | | | but not ruling in | | | | | | disease. Values less | | | | | | than 0.50 ug/mL FEU | | | | | | (Fibrinogen Equivalent | | | | | | Units) have a negative | | | | | | predictive value of | | | | | | approximately 95% for | | | | | | ruling out large | | | | | | pulmonary emboli or | | | | | | proximal deep vein | | | | | | thrombosis. Distal DVT | | | | | | are not excluded. An | | | | | | elevated D-dimer can be | | | | | | present in patients with | | | | | | liver disease, | | | | | | , eclampsia, | | | | | | heart disease and some | | | | | | cancers among other | | | | | | conditions. The presence | | | | | | of rheumatoid factor at | | | | | | a level >50 IU/mL may | | | | | | falsely elevate the | | | | | | determined D-dimer | | | | | | levels. | | | | + + + + + + + + | Specimen | + + | Blood | + + + + + + + | Performing | Address | City/State/Zipcode | Phone Number | | Organization | | | | + + + + + | [facility] | [address] | [place] | [phone] | | [facility] | | [address] | | | - LABORATORY | | | | + + + + + Sedimentation Rate (11/17/2017 11:40 AM PDT) + +-------+ + + + | Component | Value | Ref Range | Performed | Pathologist | | | | | At | Signature | + +-------+ + + + | Erythrocyte | 10 | <30 mm/hr | [facility] | | | | | | [facility] | | | [facility] | | | MEDICAL | | | on Rate | | | CENTER - | | | | | | LABORATORY | | + +-------+ + + + + + | Specimen | + + | Blood | + + + + + + + | Performing | Address | City/State/Zipcode | Phone Number | | Organization | | | | + + + + + | [facility] | [address] | [place] | [phone] | | [facility] | | [address] | | | - LABORATORY | | | | + + + + + TSH (11/17/2017 11:40 AM PDT) + + + + + + | Component | Value | Ref Range | Performed | Pathologist | | | | | At | Signature | + + + + + + | TSH | 0.52Comment: This is a | 0.45 - 5.33 | [facility] | | | | third generation TSH | uIU/mL | [facility] | | | | test. | | MEDICAL | | | | [...] + | [facility] | [address] | [place] | [phone] | | [facility] | | [address] | | | - LABORATORY | | | | + + + + + Comprehensive Metabolic Panel (11/17/2017 11:40 AM PDT) + + + + + + | Component | Value | Ref Range | Performed | Pathologist | | | | | At | Signature | + + + + + + | Na | 140 | 136 - 149 | [facility] | | | | | mmol/L | [facility] | | | | | | MEDICAL | | | | | | CENTER - | | | | | | LABORATORY | | + + + + + + | K | 3.5 | 3.5 - 5.1 | [facility] | | | | | mmol/L | [facility] | | | | | | MEDICAL | | | | | | CENTER - | | | | | | LABORATORY | | + + + + + + | Cl | 104 | 98 - 109 mmol/L | [facility] | | | | | | [facility] | | | | | | MEDICAL | | | | | | CENTER - | | | | | | LABORATORY | | + + + + + + | CO2 | 26 | 24 - 31 mmol/L | [facility] | | | | | | [facility] | | | | | | MEDICAL | | | | | | CENTER - | | | | | | LABORATORY | | + + + + + + | Anion Gap | 10 | 3 - 16 mmol/L | [facility] | | | | | | [facility] | | | | | | MEDICAL | | | | | | CENTER - | | | | | | LABORATORY | | + + + + + + | Glucose | 105 | 70 - 109 mg/dL | [facility] | | | | | | [facility] | | | | | | MEDICAL | | | | | | CENTER - | | | | | | LABORATORY | | + + + + + + | BUN | 5 (L) | 7 - 18 mg/dL | [facility] | | | | | | [facility] | | | | | | MEDICAL | | | | | | CENTER - | | | | | | LABORATORY | | + + + + + + | Creatinine | 0.72 | 0.60 - 1.30 | [facility] | | | | | mg/dL | [facility] | | | | | | MEDICAL | | | | | | CENTER - | | | | | | LABORATORY | | + + + + + + | eGFR, | >60Comment: GLOMERULAR | >=60 | [facility] | | | non- | FILTRATION | mL/min/1.73m2 | [facility] | | | [place] | RATE,ESTIMATED | | MEDICAL | | | | mL/min/1.97p9Exlu than | | CENTER - | | [...] + + + + | Calcium | 9.1 | 8.3 - 10.5 | [facility] | | | | | mg/dL | [facility] | | | | | | MEDICAL | | | | | | CENTER - | | | | | | LABORATORY | | + + + + + + | Albumin | 4.1 | 3.2 - 5.0 g/dL | [facility] | | | | | | [facility] | | | | | | MEDICAL | | | | | | CENTER - | | | | | | LABORATORY | | + + + + + + | Bilirubin | 0.5 | 0.1 - 1.5 mg/dL | [facility] | | | Total | | | [facility] | | | | | | MEDICAL | | | | | | CENTER - | | | | | | LABORATORY | | + + + + + + | Total | 6.9 | 6.0 - 7.8 g/dL | [facility] | | | Protein | | | [facility] | | | | | | MEDICAL | | | | | | CENTER - | | | | | | LABORATORY | | + + + + + + | AST | 47 (H) | 10 - 42 U/L | [facility] | | | | | | [facility] | | | | | | MEDICAL | | | | | | CENTER - | | | | | | LABORATORY | | + + + + + + | ALT | 34 | 6 - 45 U/L | [facility] | | | | | | [facility] | | | | | | MEDICAL | | | | | | CENTER - | | | | | | LABORATORY | | + + + + + + | Alkaline | 91 | 40 - 110 U/L | [facility] | | | Phosphatase | | | [facility] | | | | | | MEDICAL | | | | | | CENTER - | | | | | | LABORATORY | | + + + + + + | Globulin | 2.8 | 2.1 - 3.8 g/dL | [facility] | | | | | | [facility] | | | | | | MEDICAL | | | | | | CENTER - | | | | | | LABORATORY | | + + + + + + | Albumin/Flor | 1.5 | 0.8 - 2.0 | [facility] | | | bulin Ratio | | | [facility] | | | | | | MEDICAL | | | | | | CENTER - | | | | | | LABORATORY | | + + + + + + | BUN/Creatin | 6.9 | | [facility] | | | ine [...] | + + + + + | [facility] | [address] | [place] | [phone] | | [facility] | | [address] | | | - LABORATORY | | | | + + + + + CBC with Differential (11/17/2017 11:40 AM PDT) + +-------+ + + + | Component | Value | Ref Range | Performed | Pathologist | | | | | At | Signature | + +-------+ + + + | White Blood | 6.5 | 4.0 - 11.0 K/uL | [facility] | | | Cells | | | [facility] | | | | | | MEDICAL | | | | | | CENTER - | | | | | | LABORATORY | | + +-------+ + + + | Red Blood | 4.58 | 3.70 - 5.20 | [facility] | | | Cells | | M/uL | [facility] | | | | | | MEDICAL | | | | | | CENTER - | | | | | | LABORATORY | | + +-------+ + + + | Hemoglobin | 15.1 | 11.5 - 16.0 | [facility] | | | | | g/dL | [facility] | | | | | | MEDICAL | | | | | | CENTER - | | | | | | LABORATORY | | + +-------+ + + + | Hematocrit | 44.0 | 34.0 - 47.0 % | [facility] | | | | | | [facility] | | | | | | MEDICAL | | | | | | CENTER - | | | | | | LABORATORY | | + +-------+ + + + | MCV | 96.1 | 83.0 - 101.0 fL | [facility] | | | | | | [facility] | | | | | | MEDICAL | | | | | | CENTER - | | | | | | LABORATORY | | + +-------+ + + + | MCH | 33.0 | 28.0 - 35.0 pg | [facility] | | | | | | [facility] | | | | | | MEDICAL | | | | | | CENTER - | | | | | | LABORATORY | | + +-------+ + + + | MCHC | 34.3 | 32.0 - 36.0 | [facility] | | | | | g/dL | [facility] | | | | | | MEDICAL | | | | | | CENTER - | | | | | | LABORATORY | | + +-------+ + + + | RDW-CV | 12.5 | <15.0 % | [facility] | | | | | | [facility] | | | | | | MEDICAL | | | | | | CENTER - | | | | | | LABORATORY | | + +-------+ + + + | Platelet | 189 | 140 - 440 K/uL | [facility] | | | Count | | | [facility] | | | | | | MEDICAL | | | | | | CENTER - | | | | | | LABORATORY | | + +-------+ + + + | MPV | 10.5 | fL | [facility] | | | | | | [facility] | | | | | | MEDICAL | | | | | | CENTER - | | | | | | LABORATORY | | + +-------+ + + + | % | 64.3 | 45.0 - 82.0 % | [facility] | | | Neutrophils | | | [facility] | | | | | | MEDICAL | | | | | | CENTER - | | | | | | LABORATORY | | + +-------+ + + + | % | 27.3 | 20.0 - 45.0 % | [facility] | | | Lymphocytes | | | [facility] | | | | | | MEDICAL | | | | | | CENTER - | | | | | | LABORATORY | | + +-------+ + + + | % Monocytes | 6.4 | 4.0 - 12.0 % | [facility] | | | | | | [facility] | | | | | | MEDICAL | | | | | | CENTER - | | | | | | LABORATORY | | + +-------+ + + + | % | 1.3 | 0.0 - 5.0 % | [facility] | | | Eosinophils | | | [facility] | | | | | | MEDICAL | | | | | | CENTER - | | | | | | LABORATORY | | + +-------+ + + + | % Basophils | 0.7 | 0.0 - 1.0 % | [facility] | | | | | | [facility] | | | | | | [facility] | | | | | | CENTER - | | | | | | LABORATORY | | + +-------+ + + + | Absolute | 4.20 | 1.80 - 8.50 | [facility] | | | Neutrophils | | K/uL | [facility] | | | | | | MEDICAL | | | | | | CENTER - | | | | | | LABORATORY | | + +-------+ + + + | Absolute | 1.80 | 0.60 - 3.20 | [facility] | | | Lymphocytes | | K/uL | [facility] | | | | | | [facility] | | | | | | CENTER - | | | | | | LABORATORY | | + +-------+ + + + | Absolute | 0.40 | 0.00 - 1.00 | [facility] | | | Monocytes | | K/uL | [facility] | | | | | | [facility] | | | | | | CENTER - | | | | | | LABORATORY | | + +-------+ + + + | Absolute | 0.10 | 0.00 - 0.40 | [facility] | | | Eosinophils | | K/uL | [facility] | | | | | | MEDICAL | | | | | | CENTER - | | | | | | LABORATORY | | + +-------+ + + + | Absolute | 0.00 | 0.00 - 0.10 | [facility] | | | Basophils | | K/uL | [facility] | | | | [...] [facility] | [address] | [place] | [phone] | | [facility] | | [address] | | | - LABORATORY | | | | + + + + + documented in this encounter Visit Diagnoses + + | Diagnosis | + + | Bilateral leg edema - Primary Edema | + + | Venous insufficiency Unspecified venous (peripheral) insufficiency | + + | Fatigue, unspecified type | + + documented in this encounter Administered Medications + +--------+ +--------+------+ + | Medication Order | MAR | Action | Dose | Rate | Site | | | Action | Date | | | | + +--------+ +--------+------+ + | cyanocobalamin (VITAMIN B-12) | Given | 02/16/20 | 1,000 | | Deltoid- | | injection 1,000 mcg 1,000 mcg, | | 20 11:24 | mcg | | Left | | Intramuscular, EVERY 30 DAYS, | | AM PDT | | | | | First dose on [facility] 10/15/17 at 1215 | | | | | | + +--------+ +--------+------+ + +-------+ +--------+---+ + | Given | 11/15/19 | 1,000 | | Deltoid- | | | 20 9:50 | mcg | | Left | | | AM PDT | | | | +-------+ +--------+---+ + | Given | 09/15/19 | 1,000 | | Deltoid- | | | 20 10:23 | mcg | | Right | | | AM PDT | | | | +-------+ +--------+---+ + +---+---+ | | | +---+---+ documented in this encounter
--- OUTSIDE RECORDS SUMMARY | ~2020-02-29 | XMS | Encounter Summary ---
Demographics + + + | Address | [address] | | | [place] [address] | + + + | Home Phone [...] Author + + + | Author | [facility] | + + + | Organization | [facility] | + + + | Address [...] Team Providers + +------+ + | Care Emergency Medical Technician Basic Name | Role | Phone | + [...] | | | | Mailcode: [id number] | [place], [place] | | | | | [facility] | [address] | | | | | [address] [place], [place] | [phone] | | | | | [address] | | | | | | [phone] | | | +--------+ + + + [...] this encounter Miscellaneous Notes Telephone Encounter - ShultzAmina - 12/24/2005 9:22 AM PDTPt [facility] Pt was given injections for pain & sent home with instructions for a clear l iqid diet & a prescription for Vicodan. Pt would like to know if she needs to be seen or wa it till her appt next month. Please call to advise. Thank you! 9:2 7 AM PDTdocumented in this encounter Plan of Treatment Not on filedocumented as of this encounter Visit Diagnoses Not on filedocumented in this encounter"
--- OUTSIDE RECORDS SUMMARY | ~2020-02-29 | XMS | Encounter Summary ---
Demographics + + + | Address | [address] | | | [place] [address] | + + + | Home Phone | | + + + | Preferred Language | Unknown | + + + | Marital Status | Single | + + + | Restorationist Affiliation | ADV | + + + [...] Team Providers + +------+ + | Care Project Architect Name | Role | Phone | + +------+ + | Pedrito Gutierrez MD | PCP | | + +------+ + Reason for Visit + +--------+ + | Reason | Onset | Comments | | | Date | | + +--------+ + | Medication | 09/12/ | rec's for weaning due to over use | | Adjustment | 2009 | | + +--------+ + Encounter Details +--------+ + + + + | Date | Type | Department | Care Team | Description | +--------+ + + + + | 09/12/ | Telephone | [facility] | Miranda Lambert, | Medication | | 2009 | | [facility] at | ANP | Adjustment (rec's | | | | [facility] | | for weaning due to | | | | [address] | | over use) | | | | [facility] | | | | | | and Healing, | | | | | | Building | | | | | | Floor [place], [place] | | | | | | [address] | | | | | | [phone] | | | +--------+ + + + [...] this encounter Miscellaneous Notes Telephone Encounter - Peyton Brown - 09/12/2009 4:26 PM PDTDr. Hitzman's nurse called t o speak with Miranda Petra regarding Belinda's current dosage of chronic narcotics. Dr. Xena cesar feels she needs to be weaned off due to oversedation and the patient is falling one to two times per month requiring frequent visits to the ED. I advised that Miranda Lambert woul d be back in the office on 09/19/09 - also the patient was last seen by her at [facility] 08/28/2008 Jyoti Brown documented in this encounter Plan of Treatment Not on filedocumented as of this encounter Visit Diagnoses Not on filedocumented in this encounter"
--- OUTSIDE RECORDS SUMMARY | ~2020-02-29 | XMS | Encounter Summary ---
Demographics + + + | Address | [address] | | | [place] [address] | + + + | Home Phone [...] Providers + +------+ + | Care Environmental Service Aide Name | Role | Phone | + +------+ + | Sulaiman Carrera MD | PCP | | + +------+ + Encounter Details +--------+ + + + + | Date | Type | Department | Care Team | Description | +--------+ + + + + | 05/25/ | Ancillary | Registration [id number] | Caitlin Rivera, | | | 2006 | Reg[address] | [address] | [address] | | | | [address] | [address] Mailcode: [id number] | | | | | | [place], [place] | | | | | | [address] | | | | | | [phone] | | | +--------+ + + + [...]
--- OUTSIDE RECORDS SUMMARY | ~2020-02-29 | XMS | Encounter Summary ---
Demographics + + + | Address | [address] | | | [place] [address] | + + + | Home Phone | | + + + | Preferred Language | Unknown | + + + | Marital Status | Single | + + + | Jain Affiliation | ADV | + + + | Race | White | + + + | Ethnic Group | Not or | + + + Author + + + | Author | [facility] | + + + | Organization | [facility] | + + + | Address [...] Team Providers + +------+ + | Care Magazine Designer Name | Role | Phone | + +------+ + PCP | Unavailable | + +------+ + Encounter Details +--------+ + + + + | Date | Type | Department | Care Team | Description | +--------+ + + + + | 01/02/ | Telephone | [facility] | Kenisha Melton, | | | 2005 | | [place] [address] | [facility] [address] | | | | | [address] | [address] | | | | | Mailcode: [id number] | [place], [place] | | | | | [facility] | [address] | | | | | [place], [place] | [phone] | | | | | [address] | | | | | | [phone] | | | +--------+ + + + [...] Telephone Encounter - Nuris Cardenas Rn - 01/02/2006 12:15 PM PDTSpoke with pt. Doing ok at this time. ER last week with abdominal pain all over. Has call in to PCP to refill vicodin . Will keep appt. on 01/[address] Mayra Padgett for further eval of abdominal pain and whethe r or not colonoscopy needed. Pt. call if any issues develop prior to appt.Electronically si gned by Nuris Cardenas Rn at 01/02/2006 12:15 PM PDTTelephone Encounter - 01/02/2006 12:13 PM P DT Staff Message copied by NURIS CARDENAS on 01/02/2006 at 12:13 PM ------ Message from: WILL MELTON Created: 01/01/2006 at 6:51 PM Regarding: FW: colonoscopy Contact: Dr. Padgtet, the pt. gets severe right abd pains. I do not know if a colonoscopy will assi st in diagnosis, volvulus, etc? If yes, can call Dr. Smith's office to order... Thanks. T he pt. has the phone number, will ask Nuris Cardenas to check on this tomorrow. ----- Message ----- From: Karen John Sent: Jan 01, 2006 12:46 PM To: Will Melton Subject: colonoscopy Pt is calling to say that her hospital in [place] has reported that they found nothing o n the upper GI that was done. If a colonoscopy is needed they will need an order in order to start the test. It is the pt, not the hospital, that is requeting the colonoscopy. Pt is st ill complaining of the pain she spoke with you about earlier although she did not note it as severe. Karen Larry documented in this enco unter Plan of Treatment Not on filedocumented as of this encounter Visit Diagnoses Not on filedocumented in this encounter"
--- OUTSIDE RECORDS SUMMARY | ~2020-02-29 | XMS | Encounter Summary ---
Demographics + + + | Address | [address] | | | [place] [address] | + + + | Home Phone | | + + + | Preferred Language | Unknown | + + + | Marital Status | Single | + + + | Denominational Affiliation | ADV | + + + [...] Providers + +------+ + | Care Inspector Elevators Name | Role | Phone | + +------+ + PCP | Unavailable | + +------+ + Encounter Details +--------+ + + + + | Date | Type | Department | Care Team | Description | +--------+ + + + + | 11/22/ | Results | | Other, Faculty | | | 2004 | Only | | [phone] | | +--------+ + + + + [...] | + +--------+ + + + | BASIC METABOLIC SET | Routin | 11/25/2003 | | Results for this | | (NA, K, CL, TCO2, | e | 8:30 AM | | procedure are in the | | BUN, CR, GLU, CA) | | PDT | | results section. | + +--------+ + + + | CBC ONLY | Routin | 11/25/2003 | | Results for this | | | e | 8:30 AM | | procedure are in the | | | | PDT | | results section. | + +--------+ + + + | BASIC METABOLIC SET | Routin | 11/24/2003 | | Results for this | | (NA, K, CL, TCO2, | e | 9:23 AM | | procedure are in the | | BUN, CR, GLU, CA) | | PDT | | results section. | + +--------+ + + + | CBC ONLY | Routin | 11/24/2003 | | Results for this | | | e | 9:23 AM | | procedure are in the | | | | PDT | | results section. | + +--------+ + + + | BASIC METABOLIC SET | Routin | 11/23/2003 | | Results for this | | (NA, K, CL, TCO2, | e | 7:29 AM | | procedure are in the | | BUN, CR, GLU, CA) | | PDT | | results section. | + +--------+ + + + | CBC ONLY | Routin | 11/23/2003 | | Results for this | | | e | 7:29 AM | | procedure are in the | | | | PDT | | results section. | + +--------+ + + + documented in this encounter Results CBC ONLY WITH PLATELET (11/25/2003 8:30 AM PDT) + + + + + + | Component | Value | Ref Range | Performed | Pathologist | | | | | At | Signature | + + + + + + | WHITE CELL | 14.2 (H) | 4.4 - 11.0 K/cu | [facility] | | | COUNT | | mm | DEPARTMENT | | | | | | OF | | | | | | PATHOLOGY | | + + + + + + | RED CELL | 3.37 (L) | 3.65 - 5.10 | [facility] | | | COUNT | | M/cu mm | DEPARTMENT | | | | | | OF | | | | | | PATHOLOGY | | + + + + + + | HEMOGLOBIN | 11.0 (L) | 11.4 - 15.0 | [facility] | | | | | g/dL | DEPARTMENT | | | | | | OF | | | | | | PATHOLOGY | | + + + + + + | HEMATOCRIT | 31.9 (L) | 33.0 - 44.6 % | [facility] | | | | | | DEPARTMENT | | | | | | OF | | | | | | PATHOLOGY | | + + + + + + | MCV | 94.6 | 80.0 - 96.0 fL | [facility] | | | | | | DEPARTMENT | | | | | | OF | | | | | | PATHOLOGY | | + + + + + + | MCH | 32.5 (H) | 29.0 - 32.0 pg | [facility] | | | | | | DEPARTMENT | | | | | | OF | | | | | | PATHOLOGY | | + + + + + + | MCHC | 34.3 | 33.4 - 35.5 | [facility] | | | | | g/dL | DEPARTMENT | | | | | | OF | | | | | | PATHOLOGY | | + + + + + + | RDW | 12.5 | 11.5 - 15.0 % | [facility] | | | | | | DEPARTMENT | | | | | | OF | | | | | | PATHOLOGY | | + + + + + + | PLATELET | 212 | 150 - 400 K/cu | [facility] | | | COUNT | | mm | DEPARTMENT | | | | | | OF | | | | | | PATHOLOGY | | + + + + + + | MPV | 9.2 | 7.4 - 10.4 fL | [facility] | | | | | | DEPARTMENT | | | | | | OF | | | | | | PATHOLOGY | | + + + + + + + + | Specimen | + + | | + + + + + | Narrative | Performed At | + + + | Ordered by SYEDA MCKENZIE | [facility] | | | DEPARTMENT OF | | | PATHOLOGY | + + + + + + + + | Performing | Address | City/State/Zipcode | Phone Number | | Organization | | | | + + + + + | [facility] DE[facility]MENT [facility] | [address] | [place] [address] | | | PATHOLOGY | [address] | | | + + + + + | [facility] DEPARTMENT OF | [address] | [place] [address] | | | PATHOLOGY | [address] | | | + + + + + BASIC METABOLIC SET (11/25/2003 8:30 AM PDT) + +---------+ + + + | Component | Value | Ref Range | Performed | Pathologist | | | | | At | Signature | + +---------+ + + + | GLUCOSE, | 159 (H) | 65 - 110 mg/dL | [facility] | | | PLASMA | | | DEPARTMENT | | | (LAB) | | | OF | | | | | | PATHOLOGY | | + +---------+ + + + | BUN, PLASMA | 10 | 6 - 20 mg/dL | [facility] | | | (LAB) | | | DEPARTMENT | | | | | | OF | | | | | | PATHOLOGY | | + +---------+ + + + | CREATININE | 0.9 | 0.6 - 1.1 mg/dL | [facility] | | | PLASMA | | | DEPARTMENT | | | (LAB) | | | OF | | | | | | PATHOLOGY | | + +---------+ + + + | SODIUM, | 137 | 136 - 145 | [facility] | | | PLASMA | | mmol/L | DEPARTMENT | | | (LAB) | | | OF | | | | | | PATHOLOGY | | + +---------+ + + + | POTASSIUM, | 2.8 (L) | 3.5 - 5.1 | [facility] | | | PLASMA | | mmol/L | DEPARTMENT | | | (LAB) | | | OF | | | | | | PATHOLOGY | | + +---------+ + + + | CHLORIDE, | 97 (L) | 98 - 107 mmol/L | [facility] | | | PLASMA | | | DEPARTMENT | | | (LAB) | | | OF | | | | | | PATHOLOGY | | + +---------+ + + + | TOTAL CO2, | 32 (H) | 23 - 29 mmol/L | [facility] | | | PLASMA | | | DEPARTMENT | | | (LAB) | | | OF | | | | | | PATHOLOGY | | + +---------+ + + + | CALCIUM, | 9.0 | 8.5 - 10.5 | [facility] | | | PLASMA | | mg/dL | DEPARTMENT | | | (LAB) | | | OF | | | | | | PATHOLOGY | | + +---------+ + + + + + | Specimen | + + | | + + + + + | Narrative | Performed At | + + + | Ordered by SYEDA MCKENZIE | [facility] | | | DEPARTMENT OF | | | PATHOLOGY | + + + + + + + + | Performing | Address | City/State/Zipcode | Phone Number | | Organization | | | | + + + + + | [facility] DEPARTMENT OF | [address] | [place] [address] | | | PATHOLOGY | [address] | | | + + + + + | [facility] DEPARTMENT OF | [address] | [place] [address] | | | PATHOLOGY | [address] | | | + + + + + CBC ONLY WITH PLATELET (11/24/2003 9:23 AM PDT) + + + + + + | Component | Value | Ref Range | Performed | Pathologist | | | | | At | Signature | + + + + + + | WHITE CELL | 14.6 (H) | 4.4 - 11.0 K/cu | [facility] | | | COUNT | | mm | DEPARTMENT | | | | | | OF | | | | | | PATHOLOGY | | + + + + + + | RED CELL | 3.44 (L) | 3.65 - 5.10 | [facility] | | | COUNT | | M/cu mm | DEPARTMENT | | | | | | OF | | | | | | PATHOLOGY | | + + + + + + | HEMOGLOBIN | 11.3 (L) | 11.4 - 15.0 | [facility] | | | | | g/dL | DEPARTMENT | | | | | | OF | | | | | | PATHOLOGY | | + + + + + + | HEMATOCRIT | 32.8 (L) | 33.0 - 44.6 % | [facility] | | | | | | DEPARTMENT | | | | | | OF | | | | | | PATHOLOGY | | + + + + + + | MCV | 95.3 | 80.0 - 96.0 fL | [facility] | | | | | | DEPARTMENT | | | | | | OF | | | | | | PATHOLOGY | | + + + + + + | MCH | 32.8 (H) | 29.0 - 32.0 pg | [facility] | | | | | | DEPARTMENT | | | | | | OF | | | | | | PATHOLOGY | | + + + + + + | MCHC | 34.5 | 33.4 - 35.5 | [facility] | | | | | g/dL | DEPARTMENT | | | | | | OF | | | | | | PATHOLOGY | | + + + + + + | RDW | 12.8 | 11.5 - 15.0 % | [facility] | | | | | | DEPARTMENT | | | | | | OF | | | | | | PATHOLOGY | | + + + + + + | PLATELET | 201 | 150 - 400 K/cu | [facility] | | | COUNT | | mm | DEPARTMENT | | | | | | OF | | | | | | PATHOLOGY | | + + + + + + | MPV | 9.1 | 7.4 - 10.4 fL | [facility] | | | | | | DEPARTMENT | | | | | | OF | | | | | | PATHOLOGY | | + + + + + + + + | Specimen | + + | | + + + + + | Narrative | Performed At | + + + | Ordered by SYEDA MCKENZIE | [facility] | | | DEPARTMENT OF | | | PATHOLOGY | + + + + + + + + | Performing | Address | City/State/Zipcode | Phone Number | | Organization | | | | + + + + + | [facility] DEPARTMENT OF | [address] | [place] [address] | | | PATHOLOGY | [address] | | | + + + + + | [facility] | [address] | [place] [address] | | | PATHOLOGY | [address] | | | + + + + + BASIC METABOLIC SET (11/24/2003 9:23 AM PDT) + +---------+ + + + | Component | Value | Ref Range | Performed | Pathologist | | | | | At | Signature | + +---------+ + + + | GLUCOSE, | 123 (H) | 65 - 110 mg/dL | [facility] | | | PLASMA | | | DEPARTMENT | | | (LAB) | | | OF | | | | | | PATHOLOGY | | + +---------+ + + + | BUN, PLASMA | 13 | 6 - 20 mg/dL | [facility] | | | (LAB) | | | DEPARTMENT | | | | | | OF | | | | | | PATHOLOGY | | + +---------+ + + + | CREATININE | 0.8 | 0.6 - 1.1 mg/dL | [facility] | | | PLASMA | | | DEPARTMENT | | | (LAB) | | | OF | | | | | | PATHOLOGY | | + +---------+ + + + | SODIUM, | 137 | 136 - 145 | [facility] | | | PLASMA | | mmol/L | DEPARTMENT | | | (LAB) | | | OF | | | | | | PATHOLOGY | | + +---------+ + + + | POTASSIUM, | 3.2 (L) | 3.5 - 5.1 | [facility] | | | PLASMA | | mmol/L | DEPARTMENT | | | (LAB) | | | OF | | | | | | PATHOLOGY | | + +---------+ + + + | CHLORIDE, | 97 (L) | 98 - 107 mmol/L | [facility] | | | PLASMA | | | DEPARTMENT | | | (LAB) | | | OF | | | | | | PATHOLOGY | | + +---------+ + + + | TOTAL CO2, | 30 (H) | 23 - 29 mmol/L | [facility] | | | PLASMA | | | DEPARTMENT | | | (LAB) | | | OF | | | | | | PATHOLOGY | | + +---------+ + + + | CALCIUM, | 8.9 | 8.5 - 10.5 | [facility] | | | PLASMA | | mg/dL | DEPARTMENT | | | (LAB) | | | OF | | | | | | PATHOLOGY | | + +---------+ + + + + + | Specimen | + + | | + + + + + | Narrative | Performed At | + + + | Ordered by SYEDA MCKENZIE | [facility] | | | DEPARTMENT OF | | | PATHOLOGY | + + + + + + + + | Performing | Address | City/State/Zipcode | Phone Number | | Organization | | | | + + + + + | [facility] DEPARTMENT OF | [address] | [place] [address] | | | PATHOLOGY | [address] | | | + + + + + | [facility] DEPARTMENT OF | [address] | [place] [address] | | | PATHOLOGY | [address] | | | + + + + + CBC ONLY WITH PLATELET (11/23/2003 7:29 AM PDT) + + + + + + | Component | Value | Ref Range | Performed | Pathologist | | | | | At | Signature | + + + + + + | WHITE CELL | 14.1 (H) | 4.4 - 11.0 K/cu | [facility] | | | COUNT | | mm | DEPARTMENT | | | | | | OF | | | | | | PATHOLOGY | | + + + + + + | RED CELL | 3.46 (L) | 3.65 - 5.10 | [facility] | | | COUNT | | M/cu mm | DEPARTMENT | | | | | | OF | | | | | | PATHOLOGY | | + + + + + + | HEMOGLOBIN | 11.4 | 11.4 - 15.0 | [facility] | | | | | g/dL | DEPARTMENT | | | | | | OF | | | | | | PATHOLOGY | | + + + + + + | HEMATOCRIT | 33.1 | 33.0 - 44.6 % | [facility] | | | | | | DEPARTMENT | | | | | | OF | | | | | | PATHOLOGY | | + + + + + + | MCV | 95.7 | 80.0 - 96.0 fL | [facility] | | | | | | DEPARTMENT | | | | | | OF | | | | | | PATHOLOGY | | + + + + + + | MCH | 33.1 (H) | 29.0 - 32.0 pg | [facility] | | | | | | DEPARTMENT | | | | | | OF | | | | | | PATHOLOGY | | + + + + + + | MCHC | 34.6 | 33.4 - 35.5 | [facility] | | | | | g/dL | DEPARTMENT | | | | | | OF | | | | | | PATHOLOGY | | + + + + + + | RDW | 12.7 | 11.5 - 15.0 % | [facility] | | | | | | DEPARTMENT | | | | | | OF | | | | | | PATHOLOGY | | + + + + + + | PLATELET | 192 | 150 - 400 K/cu | [facility] | | | COUNT | | mm | DEPARTMENT | | | | | | OF | | | | | | PATHOLOGY | | + + + + + + | MPV | 9.8 | 7.4 - 10.4 fL | [facility] | | | | | | DEPARTMENT | | | | | | OF | | | | | | PATHOLOGY | | + + + + + + + + | Specimen | + + | | + + + + + | Narrative | Performed At | + + + | Ordered by SYEDA MCKENZIE | [facility] | | | DEPARTMENT OF | | | PATHOLOGY | + + + + + + + + | Performing | Address | City/State/Zipcode | Phone Number | | Organization | | | | + + + + + | [facility] DEPARTMENT OF | [address] | [place] [address] | | | PATHOLOGY | [address] | | | + + + + + | [facility] DEPARTMENT OF | [address] | [place] [address] | | | PATHOLOGY | [address] | | | + + + + + BASIC METABOLIC SET (11/23/2003 7:29 AM PDT) + +---------+ + + + | Component | Value | Ref Range | Performed | Pathologist | | | | | At | Signature | + +---------+ + + + | GLUCOSE, | 116 (H) | 65 - 110 mg/dL | [facility] | | | PLASMA | | | DEPARTMENT | | | (LAB) | | | OF | | | | | | PATHOLOGY | | + +---------+ + + + | BUN, PLASMA | 13 | 6 - 20 mg/dL | [facility] | | | (LAB) | | | DEPARTMENT | | | | | | OF | | | | | | PATHOLOGY | | + +---------+ + + + | CREATININE | 0.9 | 0.6 - 1.1 mg/dL | [facility] | | | PLASMA | | | DEPARTMENT | | | (LAB) | | | OF | | | | | | PATHOLOGY | | + +---------+ + + + | SODIUM, | 137 | 136 - 145 | [facility] | | | PLASMA | | mmol/L | DEPARTMENT | | | (LAB) | | | OF | | | | | | PATHOLOGY | | + +---------+ + + + | POTASSIUM, | 3.6 | 3.5 - 5.1 | [facility] | | | PLASMA | | mmol/L | DEPARTMENT | | | (LAB) | | | OF | | | | | | PATHOLOGY | | + +---------+ + + + | CHLORIDE, | 103 | 98 - 107 mmol/L | [facility] | | | PLASMA | | | DEPARTMENT | | | (LAB) | | | OF | | | | | | PATHOLOGY | | + +---------+ + + + | TOTAL CO2, | 27 | 23 - 29 mmol/L | [facility] | | | PLASMA | | | DEPARTMENT | | | (LAB) | | | OF | | | | | | PATHOLOGY | | + +---------+ + + + | CALCIUM, | 8.5 | 8.5 - 10.5 | [facility] | | | PLASMA | | mg/dL | DEPARTMENT | | | (LAB) | | | OF | | | | | | PATHOLOGY | | + +---------+ + + + + + | Specimen | + + | | + + + + + | Narrative | Performed At | + + + | Ordered by SYEDA MCKENZIE | [facility] | | | DEPARTMENT OF | | | PATHOLOGY | + + + + + + + + | Performing | Address | City/State/Zipcode | Phone Number | | Organization | | | | + + + + + | [facility] DEPARTMENT OF | [address] | [place] [address] | | | PATHOLOGY | [address] | | | + + + + + | [facility] | [address] | [place] [address] | | | PATHOLOGY | [address] | | | + + + + + documented in this encounter Visit Diagnoses Not on filedocumented in this encounter"
--- OUTSIDE RECORDS SUMMARY | ~2020-02-29 | XMS | Encounter Summary ---
Demographics + + + | Address | [address] | | | [place] [address] | + + + | Home Phone | | + + + | Preferred Language | Unknown | + + + | Marital Status | Single | + + + | Jainism Affiliation | ADV | + + + | Race | White | + + + | Ethnic Group | Not or | + + + Author + + + | Author | [facility] | + + + | Organization | [facility] | + + + | Address [...] Team Providers + +------+ + | Care Reading Coach Name | Role | Phone | + +------+ + | Pedrito Gutierrez MD | PCP | | + +------+ + Reason for Visit +--------+ + | Reason | Comments | +--------+ + | Pain | back pain, GOTTLIEB, leg pain | +--------+ + Encounter Details +--------+---------+ + + + | Date | Type | Department | Care Team | Description | +--------+---------+ + + + | 09/23/ | Office | [facility] | Delfina Molina, | Spondylosis with | | 2006 | Visit | Pain Center at | ANP | Myelopathy, Lumbar | | | | [facility] | | Region; Herniated | | | | [address] | | Lumbar | | | | Center for [facility] | | Intervertebral Disc | | | | and Healing, | | L4-5; Right shoulder | | | | Building | | rotator cuff | | | | [place], [place] | | strain; DJD | | | | [address] | | (Degenerative Joint | | | | [phone] | | Disease) of Left | | | | | | Knee; Migraine | | | | | | Headache; | | | | | | Fibromyalgia | | | | | | syndrome 729.1; | | | | | | Major Depressive | | | | | | Disorder, Recurrent | | | | | | Episode, Moderate | | | | | | (HCC); Adjustment | | | | | | Disorder with | | | | | | Anxiety; Opioid | | | | | | Dependence, | | | | | | Continuous (HCC) | +--------+---------+ + + + Social [...] + + + | Blood Pressure | 136/88 | 09/23/2006 9:19 AM | | | | | PDT | | + + + + + | Pulse | 84 | 09/23/2006 9:19 AM | | | | | PDT | | + + + + + | Temperature | 36.7 C (98.1 F) | 09/23/2006 9:19 AM | | | | | PDT | | + + + + + | Respiratory Rate | 16 | 09/23/2006 9:19 AM | | | | | PDT | | + + + + + | Oxygen Saturation | - | - | | + + + + + | Inhaled Oxygen | - | - | | | Concentration | | | | + + + + + | Weight | 96.6 kg (212 lb 15.4 | 09/23/2006 9:19 AM | | | | oz) | PDT | | + + + + + | Height | 175.3 cm (5' 9") | 09/23/2006 9:19 AM | | | | | PDT | | + + + + + | Body Mass Index | 31.45 | 09/23/2006 9:19 AM | | | | | PDT | | + + + + + documented in this encounter Patient Instructions Patient Instructions Delfina Molina - 09/23/2006 9:53 AM PDT1. Continue with Fentanyl pat ch 25mcg/hr every 72 hours on schedule 2. Continue with Ardmore 10/325 1 tablet three times per day as needed for increased pain wit h activity. 3. Continue with Trileptal 150mg, 1 tablet twice a day 4. Continue with PT and psychology as scheduled 5. Follow up with Delfina Molina in 4 weeks or sooner if needed. 6. Continue with orthopedic and neurology evaluations as scheduled documented in this encounter Progress Notes Delfina Molina - 09/23/2006 9:44 AM PDTFormatting of this note might be different from lesli gomez. 09/23/2006 Belinda Meehan is a 46 y.o. female [facility] Return Visit Chief Complaint: Chief Complaint Patient presents with Pain back pain, GOTTLIEB, leg pain History of Present Illness: Belinda Meehan is a 46 y.o. year-old female with a history of chronic pain due to multiple chronic pain conditions Belinda Barnes is here today for a follow up visit, and reports increased pain in both knees othe rwised decreased diffuse body pain and headaches since prior visit. Belinda reports that the memory loss she has been having has resolved since decreasing the T rileptal dose back to 150mg bid, she reports no change in her headaches intensity frequency or duration since this change and she continues to express this benefits her. She continues with pain psychoogy and physical therapy and reports progress and improvement in her muscul arskeletal pain. She continues to use crutches to keep the weight off her knees which is he r greatest pain most days. She reports falling easily. Belinda Meehan is compliant with all aspects of chronic opioid therapy , is using the med ication as directed, demonstrates benefits, and has no serious adverse effects. There were no significant cognitive or mood impairments. There is no evidence of diversion past or pres ent. Denies bladder or bowel dysfunction with her medications. There have been no reported new procedures, diagnostic studies or changes in medical care s joycelyn prior visit. She does have an appointment with Dr. Moore today in orthopedics to di scuss surgical options for her knee pain/DJD, and she has a neurlogist evaluation of her hea daches scheduled also. Current outpatient prescriptions Medication Sig Dispense Refill LASIX 40 MG TAB take 1 tablet (40mg) by oral route [...] daily VITAMIN C 500 MG CHEWABLE TAB None Entered FENTANYL 25 MCG/HR 72 HR TRANSDERM PATCH apply 1 patch (25mcg/h) by transdermal route e very 72 hours 10 0 NORCO 10 MG-325 MG TAB take 1 tablet by oral route every 4-6 hours as needed for pain N TE 5 per day 90 0 MULTI VIT-FLUORIDE OR None Entered ACTONEL 35 MG TAB take 1 tablet (35mg) by oral route once weekly in the morning, at dona st 30 minutes before the first food, beverage, or medication of the day TRILEPTAL 150 MG TAB 1 1/2 tablets twice daily 90 3 Side effects: memory loss with Trileptal 225mg bid; resolved decreasing to 150mg bid Past Medical History Diagnosis Date CHRONIC ABDOMINAL PAIN on Oxycodone, NSAIDs, ASA RUQ u/s at OSH reportedly nl panc, bile ducts, liver; ct abd/pel normal, KIDNEY STONE 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 2005 endoscopy VERTEBRAL FRACTURE T7,8,9 Xray T spine 2003 OPTIC NERVE HEMORRHAGE left eye Past Surgical History Procedure Date Gastric bypass CYudy Robledoenejeannie wt 278 01/18 Paniculectomy Hx cholecystectomy Hx hysterectomy Hx salpingo-oophorectomy Colonoscopy 03/2006 Hx tonsillectomy Pr d&c after delivery Pr inject trigger point, 1 or 2 Family History Problem Relation Cancer Mother Heart Father Additional Family History Father Migraine Additional Family History Mother Migraine Review of Systems: Bones, Joints, and Muscles: joint pain, muscle pain, stiffness and swelling Gastrointestinal System: constipation Genitourinary System: negative Nervous System: numbness, weakness and headache Psychiatric History: Depressed Mood and sleep disturbance Physical examination: BP 136/88 | Pulse 84 | Temp (Src) 98.1 F (36.7 C) (Oral) | Resp 16 | Ht 1.753 m (5' 9") | Wt 96.600 kg (212 lbs 15.4 oz) Body mass index is 31.45 kg/(m^2). General appearance: Appears healthy. Alert; in no acute distress. Pleasant. Using crutche s under the shoulder for ambulation due to bilateral knee DJD/pain. 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 1. Continue with Fentanyl patch 25mcg/hr every 72 hours on schedule 2. Continue with Ardmore 10/325 1 tablet three times per day as needed for increased pain wit h activity. 3. Continue with Trileptal 150mg, 1 tablet twice a day 4. Continue with PT and psychology as scheduled 5. Follow up with Delfina Molina in 4 weeks or sooner if needed. 6. Continue with orthopedic and neurology evaluations as scheduled DELFINA MOLINA [facility] Mail code CH 4P [facility] and [address] [address] y Noel - 7 9:28 AM PDTCMA History: PMH/PSH/SH/FH review 1. Has your pain changed from your last visit? increased 2. Do you have any new weakness or decrease in sensation? yes " problems with my knees" 3. Do you have any difficulty with urination? No 4. How often do you have a bowel movement? once daily 5. Are you having difficulties with sexual function? Not applicable 6. Do your medications cause any side effects? Yes. Trileptal backed down to 1 tab BID 7. Have you had physical therapy appointments since your last visit? no 8. Have you had psychology appointments since your last visit? no 9. Have you had any diagnostic studies since your last appointment? no 10. Do you require any medication refills today? Yes , Fentanyl patch documented in this encounte r Plan of Treatment Not on filedocumented as of this encounter Visit Diagnoses + + | Diagnosis | + + | Spondylosis with myelopathy, lumbar region | + + | Herniated Lumbar Intervertebral Disc L4-5 Displacement of lumbar intervertebral disc | | without myelopathy | + + | Right shoulder rotator cuff strain Injury, other and unspecified, shoulder and upper | | arm | + + | 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 Osteoarthrosis, unspecified whether | | generalized or localized, lower leg | + + | Migraine headache Migraine, unspecified, without mention of intractable migraine | | without mention of status migrainosus | + + | Fibromyalgia syndrome 729.1 Mylagia and myositis, unspecified | + + | Major depressive disorder, recurrent episode, moderate (HCC) Major depressive | | disorder, recurrent episode, moderate | + + | Adjustment disorder with anxiety | + + | Opioid dependence, continuous (HCC) Opioid type dependence, continuous | + + documented in this encounter
--- OUTSIDE RECORDS SUMMARY | ~2020-02-29 | XMS | Encounter Summary ---
Demographics + + + | Address | [address] | | | [place] [address] | + + + | Home Phone | | + + + | Preferred Language | Unknown | + + + | Marital Status | | + + + | Judaism Affiliation | 1001 | + + + | Race | White | + + + | Ethnic Group | Not or | + + + Author + + + | Author | [facility] | | | and [place] | + + + | Organization | [facility] | | | [...] Team Providers + +------+ + | Care Roof Tile Layer Name | Role | Phone | + +------+ + | Petrona Thapa | PCP | | | MD | | | + +------+ + Reason for Visit +---------+--------+ + | Reason | Onset | Comments | | | Date | | +---------+--------+ + | Imaging | 02/26/ | | | | 2019 | | +---------+--------+ + Encounter Details +--------+ + + + + | Date | Type | Department | Care Team | Description | +--------+ + + + + | 02/26/ | Telephone | [facility] | Alanis, | Imaging | | 2019 | | MEDICINE [address] | MD Petrona | | | | | [place], | [address] [facility] | | | | | [place] [address] | [place] [address] | | | | | [phone] | [phone] | | | | | | | [...] Telephone Encounter - Maggie Montoya LPN - 02/27/2020 3:04 PM PDTPatient concerned about a slow healing burn to breast that had a lumpectomy done in 2001, was advised that the regula r mammogram screening will show any changes in breast tissue per MD. If any abnormal finding s an ultrasound would be done for additional imaging. elephone Encounter - Rebekah Maldonado - 02/27/2020 1:12 PM PD TPatient would like to speak the nurse. Patient states she is having a mammogram on 03/06/20 and she needs the order to be change to intensive mammogram. Please adviseElectronically si gned by Rebekah Maldonado at 02/27/2020 1:48 PM PDTdocumented in this encounter Plan of [...] | | | | | | [place] [address] | | | | | | [phone] | | | | | | | | +--------+---------+ + + + + +---------+--------+ + + | Name | Type | Priori | Associated Diagnoses | Order Schedule | | | | ty | | | + +---------+--------+ + + | LEANDRO Tomosynthesis | Imaging | Routin | Encounter for | Expected: | | Screening Bilateral | | e | mammogram to | 02/27/2020, Expires: | | | | | establish baseline | 04/28/2021 | | | | | mammogram | | + +---------+--------+ + + documented as of this encounter Visit Diagnoses + + | Diagnosis | + + | Encounter for mammogram to establish baseline mammogram - Primary Other screening | | mammogram | + + documented in this encounter"
--- OUTSIDE RECORDS SUMMARY | ~2020-02-29 | XMS | Encounter Summary ---
Demographics + + + | Address | [address] | | | [place] [address] | + + + | Home Phone [...] Team Providers + +------+ + | Care Kiln Feeder Name | Role | Phone | + +------+ + PCP | Unavailable | + +------+ + Encounter Details +--------+ + + + + | Date | Type | Department | Care Team | Description | +--------+ + + + + | 03/07/ | Office | | Note, Outpatient | Progress Note | | 2004 | Visit-Trans | | Clinic | | [...] as of this encounter Progress Notes Interface, Lead Ruby On Rails Developer In - 01/12/2005 8:09 AM PDT [id number] GEOVANNI BELINDA J Clinic Date: 03/07/2004 Clinic: [facility] TELEPHONE CONVERSATION Subjective: Belinda contacted the clinic with complaints of continuing right upper quadrant pain. She has noted to have had gallbladder colic in the past. The patient discontinued her Actigall just a few weeks after surgery as her insurance company would not underwrite the cost and she felt she could not afford it. In the past 24 hours, she has had some mild ongoing pain that has not been relieved but worsens with food. She denies any fever or chills. She has not vomited, but has a decrease in appetite. Impression: Acute cholelithiasis. She is welcome to come to [facility] for evaluation; however, given the distance of a 4-hour travel time, we found it would be more expeditious for her to be seen at her local hospital in [place]. The patient also agrees with this plan and will proceed to the nearest emergency room for a probable ultrasound. She is given our telephone number in order to contact us, should we be able to provide any documentation of her previous surgeries or any background information that might be helpful. The patient is asked to contact us after she has been seen and evaluated so we can provide any additional followup as needed. Liliya Kirkpatrick. / [id number] / [id number] / [phone] / documented i n this encounter Plan of Treatment Not on filedocumented as of this encounter Visit Diagnoses Not on filedocumented in this encounter"
--- OUTSIDE RECORDS SUMMARY | ~2020-02-29 | XMS | Encounter Summary ---
Demographics + + + | Address | [address] | | | [place] [address] | + + + | Home Phone | | + + + | Preferred Language | Unknown | + + + | Marital Status | Single | + + + | Taoist Affiliation | ADV | + + + [...] Team Providers + +------+ + | Care Woven Label Designer Name | Role | Phone | + +------+ + | Pedrito Gutierrez MD | PCP | | + +------+ + Encounter Details +--------+ + + + + | Date | Type | Department | Care Team | Description | +--------+ + + + + | 11/24/ | Results | Registration [id number] | [address] | | | 2007 | Only | [address] | [phone] | | | | | Rd Mailcode: [id number] | | | | | | [place], [place] | | | | | | [address] | | | | | | [phone] | | | +--------+ + + + [...] | TYPE AND SCREEN | Routin | 11/25/2007 | | Results for this | | | e | 2:39 PM | | procedure are in the | | | | PDT | | results section. | + +--------+ + + + documented in this encounter Results TYPE AND SCREEN (11/25/2007 2:39 PM PDT) + + + [...] + + + | Ordered by an unspecified provider. | [facility] | | | DEPARTMENT OF | | | PATHOLOGY | + + + + + + + + | Performing | Address | City/State/Zipcode | Phone Number | | Organization | | | | + + + + + | [facility] DEPARTMENT OF | [address] | [place] [address] | | | PATHOLOGY | [address] | | | + + + + + | [facility] | [address] | [place] [address] | | | PATHOLOGY | [address] | | | + + + + + documented in this encounter Visit Diagnoses Not on filedocumented in this encounter"
--- OUTSIDE RECORDS SUMMARY | ~2020-02-29 | XMS | Encounter Summary ---
Demographics + + + | Address | [address] | | | [place] [address] | + + + | Home Phone | | + + + | Preferred Language | Unknown | + + + | Marital Status | | + + + | Amish Affiliation | 1001 | + + + [...] Providers + +------+ + | Care Family Support Specialist Name | Role | Phone | + +------+ + | Petrona Thapa | PCP | | | MD | | | + +------+ + Encounter Details +--------+ + + + + | Date | Type | Department | Care Team | Description | +--------+ + + + + | 05/10/ | Orders Only | [facility] | Alanis, | Chronic bilateral | | 2016 | | MEDICINE [address] | MD Petrona | low back pain with | | | | [address] [place], | [address] [facility] | left-sided sciatica | | | | [place] [address] | [place] [address] | (Primary Dx) | | | | [phone] | [phone] | | | | | | | [...] | | | | | [place] [address] | | | | | | [phone] | | | | | | | | +--------+---------+ + + + + +---------+--------+ + + | Name | Type | Priori | Associated Diagnoses | Order Schedule | | | | ty | | | + +---------+--------+ + + | XR Lumbar Spine 2 or | Imaging | Routin | Chronic bilateral | Expected: | | 3 Vw | | e | low back pain with | 05/11/2017, Expires: | | | | | left-sided sciatica | 05/10/2018 | + +---------+--------+ + + documented as of this encounter Visit Diagnoses + + | Diagnosis | + + | Chronic bilateral low back pain with left-sided sciatica - Primary | + + documented in this encounter"
--- OUTSIDE RECORDS SUMMARY | ~2020-02-29 | XMS | Encounter Summary ---
Demographics + + + | Address | [address] | | | [place] [address] | + + + | Home Phone | | + + + | Preferred Language | Unknown | + + + | Marital Status | Single | + + + | Caodaism Affiliation | ADV | + + + | Race | White | + + + | Ethnic Group | Not or | + + + Author + + + | Author | [facility] | + + + | Organization | [facility] | + + + | Address [...] Providers + +------+ + | Care Special Education Kindergarten Teacher Name | Role | Phone | + +------+ + | Pedrito Gutierrez MD | PCP | | + +------+ + Reason for Visit + +--------+ + | Reason | Onset | Comments | | | Date | | + +--------+ + | Lab findings, | 02/27/ | | | teaching, guidance, | 2008 | | | and counseling | | | + +--------+ + Encounter Details +--------+ + + + + | Date | Type | Department | Care Team | Description | +--------+ + + + + | 02/27/ | Telephone | Orthopaedics at | Hai Hoyos, | Lab findings, | | 2008 | | [facility] [address] | MD | teaching, guidance, | | | | [address] | | and counseling | | | | Mailcode: [id number] | | | | | | [facility] | | | | | | [place], [place] | | | | | | [address] | | | | | | [phone] | | | +--------+ + + + [...] this encounter Miscellaneous Notes Telephone Encounter - Lyle Esquivel - 02/27/2009 9:24 AM PDTCalled and spoke with pt. She states that she will make it down to see Dr. Hoyos for her first post op appt due to ins urance reasons. Pt will call [phone] if she has any further questions. Electronically s igned by Lyle Esquivel at 02/27/2009 9:24 AM PDTTelephone Encounter - Donna Clancy PA - 02/27/2009 8:40 AM PDTPlease advise that is fine. Shouldn't need an order. Will n eed to come for 6 week post op, so we can obtain xrays. Please fax op note to pt's rianna valdivia doctor. elephone Encounter - Laila Gregg - 02/27/2009 8:35 AM PDTName of caller: Belinda Reason for call: Patient is wondering if Dr. Vasquez, referring doctor, can see her for first post-op due to distance. Should he have an order. PH: [phone]. . Would also like to have us fax over op note to Dr. Vasquez since he didn't get it yet. She i s not able to get a ride for her first post-op. Recent Surgery: yes/no: Yes Date of surgery: 02-22-09 Procedure: 1. Curettage and bone grafting of the left scapular lesion. 2. Open biopsy, left scapular lesion. Provider: Romain Does patient have confidential voicemail?: yes/no: Yes documented in this encounter Plan of Treatment Not on filedocumented as of this encounter Visit Diagnoses Not on filedocumented in this encounter"
--- OUTSIDE RECORDS SUMMARY | ~2020-02-29 | XMS | Encounter Summary ---
Demographics + + + | Address | [address] | | | [place] [address] | + + + | Home Phone | | + + + | Preferred Language | Unknown | + + + | Marital Status | | + + + | Latter-Day Affiliation | 1001 | + + + [...] Providers + +------+ + | Care Manager Beverage Name | Role | Phone | + +------+ + | Petrona Thapa | PCP | | | MD | | | + +------+ + Reason for Visit + +--------+ + | Reason | Onset | Comments | | | Date | | + +--------+ + | Appointment | 03/30/ | | | | 2018 | | + +--------+ + Encounter Details +--------+ + + + + | Date | Type | Department | Care Team | Description | +--------+ + + + + | 03/30/ | Telephone | [facility] | Alanis, | Appointment | | 2018 | | MEDICINE [address] | MD Petrona | | | | | [place], | [address] [facility] | | | | | [place] [address] | [place] [address] | | | | | [phone] | [phone] | | | | | | | [...] Telephone Encounter - Maggie Montoya LPN - 03/30/2019 2:15 PM PDTPatient wanting to cale farah will be having shoulder surgery and will need clearance, will address at next follow up ap pt on 04/18/19. MD notified elephone Encounter - Tiesha Rasmussen - 03/30/2019 11:50 AM PDTPatient called fredy shen to speak to the nurse. Patient states that she needs to talk to the nurse about her up coming appointment. Patient declined to provide any additional information, please advise. documented in this e ncounter Plan of Treatment +--------+---------+ + + + | Date | Type | Specialty | Care Team | Description | +--------+---------+ + + + | 05/17/ | Office | Internal Medicine | Alanis, | | | 2019 | Visit | | MD Petrona | | | | | | [address] | | | | | | [place] [address] | | | | | | [phone] | | | | | | | | +--------+---------+ + + + documented as of this encounter Visit Diagnoses Not on filedocumented in this encounter"
--- OUTSIDE RECORDS SUMMARY | ~2020-02-29 | XMS | Encounter Summary ---
Demographics + + + | Address | [address] | | | [place] [address] | + + + | Home Phone [...] Team Providers + +------+ + | Care Export Packer Name | Role | Phone | [...] | 02/15/ | Refill | [facility] | Alanis, | Medication Refill | | 2018 | | [facility] [address] | MD Petrona | | | | | [place], | [address] [place] | | | | | [place] [address] | [place] [address] | | | | | [phone] | [phone] | | | | | | | [...] US be sent to [facility], [place] elephone Enc alejo - Maggie Montoya LPN - 02/15/2019 5:21 PM PDT----- Message from Petrona Morales MD sent at 02/15/2019 16:20 PDT ----- Labs show mildly elevated liver enzymes. Since I do not have a recent ultrasound of her li garth, I ordered one. You may send the order to [facility] if it is easier for her to [...] | | | | | [place] [address] | | | | | | [phone] | | | | | | | | +--------+---------+ + + + documented as of this encounter Visit Diagnoses Not on filedocumented in this encounter"
--- OUTSIDE RECORDS SUMMARY | ~2020-02-29 | XMS | Encounter Summary ---
Demographics + + + | Address | [address] | | | [place] [address] | + + + | Home Phone | | + + + | Preferred Language | Unknown | + + + | Marital Status | | + + + | Episcopal Affiliation | 1001 | + + + [...] Team Providers + +------+ + | Care Clothing Supervisor Name | Role | Phone | + +------+ + | Petrona Thapa | PCP | | | MD | | | + +------+ + Reason for Referral Service/Procedure (Routine) +--------+ + + + + + | Status | Reason | Specialty | Diagnoses / | Referred By | Referred To | | | | | Procedures | Contact | Contact | +--------+ + + + + + | Closed | Specialty | Infusion | Diagnoses | | [facility] | | | Services | Therapy | Age-related | Emmy-Tajt | Infusion [address] | | | Required | | | i, | [address] [place] | | | | | osteoporosis | Sulaiman-Russell | [place], | | | | | without | , MD [address] | [place] [address] | | | | | current | [address] | Phone: | | | | | pathological | [place], | [phone] | | | | | fracture | [place] | Fax: | | | | | | [address] | [phone] | | | | | | Phone: | | | | | | | [phone] | | | | | | | Fax: | | | | | | | [phone] | | +--------+ + + + + + Reason for Visit + +--------+ + | Reason | Onset | Comments | | | Date | | + +--------+ + | Medication Orders | 09/20/ | | | | 2018 | | + +--------+ + Encounter Details +--------+ + + + + | Date | Type | Department | Care Team | Description | +--------+ + + + + | 09/20/ | Telephone | [facility] | Alanis, | Medication Orders | | 2018 | | MEDICINE [address] | MD Petrona | | | | | [place], | [address] [facility] [place] | | | | | [place] [address] | [place] [address] | | | | | [phone] | [phone] | | | | | | | [...] encounter Miscellaneous Notes Telephone Encounter - Juliane Elena - 09/29/2018 3:36 PM PDTPatient called stating she wo uld like to know if she needs to follow up after infusion? And has more questions please marcos deras. elephone Encounter - Maggie Bowers LPN - 09/23/2018 9:59 AM PDTLeft message on patient's voicemail that Reclast infusion ordered and when approved infusion center will contact patient to scheduleElectroni mary carmen signed by Maggie Montoya LPN at 09/23/2018 10:00 AM PDTTelephone Encounter - James Rodriguez PharmD - 09/22/2018 5:02 PM PDTReclast infusion ordered. elephone Encounter - Priscilla Grant RN - 09/13 8:10 AM PDTCalled patient and she believes her last dose of Reclast was over a year ago at [facility] the exact date is unknown. Will relay this to Dr. Booth and return phone call . elephon e Encounter - Petrona Thapa MD - 09/21/2018 6:56 PM PDTCan you please find o ut when she received the last dose of Reclast. The next one is due in a year after the prev ious one. If she is due, please let me know. elephone Encounter - Adriana Cantor Malissa - 09/20/2018 12: 10 PM PDTPatient called asking to speak with the nurse. Patient stated she is calling to kelly on the status of an order for her IV medication for her osteoporosis. [facility], . Electronically signed by Petrona Thapa MD at 09/22 3:25 PM PDTdocumented in this encounter Plan of Treatment +--------+---------+ + + + | Date | Type | Specialty | Care Team | Description | +--------+---------+ + + + | 05/17/ | Office | Internal Medicine | Alanis, | | | 2019 | Visit | | MD Petrona | | | | | | [facility] [address] | | | | | | [place] [address] | | | | | | [phone] | | | | | | | | +--------+---------+ + + + + + +--------+ + + | Name | Type | Priori | Associated Diagnoses | Order Schedule | | | | ty | | | + + +--------+ + + | * [facility] - | Outpatient | Routin | Age-related | Expected: | | AMB Referral | Referral | e | osteoporosis without | 09/22/2018, Expires: | | | | | current | 09/23/2019 | | | | | pathological | | | | | | fracture | | + + +--------+ + + documented as of this encounter Visit Diagnoses + + | Diagnosis | + + | Age-related osteoporosis without current pathological fracture - Primary Senile | | osteoporosis | + + documented in this encounter"
--- OUTSIDE RECORDS SUMMARY | ~2020-02-29 | XMS | Encounter Summary ---
Demographics + + + | Address | [address] | | | [place] [address] | + + + | Home Phone [...] Author + + + | Author | [facility] | + + + | Organization | [facility] | + + + | Address [...] Team Providers + +------+ + | Care Beverage Steward Name | Role | Phone | + +------+ + | Sulaiman Carrera MD | PCP | | + +------+ + Encounter Details +--------+ + + + + | Date | Type | Department | Care Team | Description | +--------+ + + + + | 03/19/ | Ancillary | Registration [id number] | | | | 2004 | Registratio | [facility] | | | | | n | Peterson Mailcode: [id number] | | | | | | [place], [place] | | | | | | [address] | | | | | | [phone] | | | +--------+ + + + [...]
--- OUTSIDE RECORDS SUMMARY | ~2020-02-29 | XMS | Encounter Summary ---
Demographics + + + | Address | [address] | | | [place] [address] | + + + | Home Phone | | + + + | Preferred Language | Unknown | + + + | Marital Status | | + + + | Sikh Affiliation | 1001 | + + + | Race | White | + + + | Ethnic Group | Not or | + + + Author + + + | Author | [facility] | | | and [place] | + + + | Organization | [facility] | | | and [...] Team Providers + +------+ + | Care Tube Making Machine Operator Name | Role | Phone [...] Description | +--------+--------+ + + + | 05/25/ | Refill | [facility] | Alanis, | Medication Refill | | 2016 | | MEDICINE [address] | MD Petrona | | | | | [place], | [address] [facility] | | | | | [place] [address] | [place] [address] | | | | | [phone] | [phone] | | | | | | | [...] | | | | | | [place] [address] | | | | | | [phone] | | | | | | | | +--------+---------+ + + + documented as of this encounter Visit Diagnoses Not on filedocumented in this encounter"
--- OUTSIDE RECORDS SUMMARY | ~2020-02-29 | XMS | Encounter Summary ---
Demographics + + + | Address | [address] | | | [place] [address] | + + + | Home Phone [...] Team Providers + +------+ + | Care Buzzsaw Operator Helper Name | Role | Phone [...] Floor | | | | | | [place], [place] | | | | | | [address] | | | | | | [phone] | | | +--------+ + + + [...] No: | | | | | | [id number] Name: | | | | | | GEOVANNIBELINDA Barnes | | | | | | Birthday: 1960 | | | | | | Sex: F | | | | | | Alias:Patient Location: | | | | | | [id number]: Outpatient | | | | | | ActiveOrdering | | | | | | Physician: JOSÉ MIGUEL | | | | | | MARYSOL MORENO SCAPULA | | | | | | COMPLETE completed on | | | | | | 01/01/2009 11:55 | | | | | | AMAccession # | | | | | | [id number]:LEFT | | | | | | SCAPULA [...] NOHELIA | | | | | | MNajmaReviewer: BONNIE | | | | | | [...]
--- OUTSIDE RECORDS SUMMARY | ~2020-02-29 | XMS | Encounter Summary ---
Demographics + + + | Address | [address] | | | [place] [address] | + + + | Home Phone [...] Team Providers + +------+ + | Care Physical Science Professor Name | Role | Phone | [...] 10/07/ | Office | [facility] at [facility] | Lukasz Charles, | Major Depressive | | 2006 | Visit | [address] | PhD [address] | Disorder, Recurrent | | | | [facility] | [place], [place] | Episode, Moderate | | | | and Healing, | [address] | ([facility]); Spondylosis | | | | | [phone] | with Myelopathy, | | | | Floor [facility] [place] | | Lumbar Region; | | | | [address] | | Chronic Abdominal | | | | [phone] | | Pain; Adjustment | | | [...] will need to continue self-c are. Diagnosis: [place] I: 1. (296.32) Major depressive disorder, recurrent, moderate. 2. (309.24) Adjustment disorder with anxiety. 3. (307.89) Chronic pain disorder associated with both psychological factors and a gene ral medical condition. [place] II: Deferred [place] III: abdominal pain, migraine headache, low back pain. [place] IV: low finances [place] V: GAF 50 Plan: Return in 2 weeks. Schedule 4 follow-up appointments. Check preparation for move and for niece's visit. Check [employer] gym, pacing, relaxation, activity, distraction. Check "Managin g Pain..." book. Continue cognitive/behavioral therapy. Total time spent with patient was approximately 45 minutes. LUKASZ CHARLES PHD [facility] [address] [place] [address] And [facility] [address] [place] [address] documented in this encount er Plan of Treatment + + +--------+ + + | Name | Type | Priori | Associated Diagnoses | Order Schedule | | | | ty | | | + + +--------+ + + | [place] PSYCHOTHERPY, | Procedures | Routin | Major Depressive | Ordered: 10/07/2006 | | OFFICE (97-38) | | e | Disorder, Recurrent | | | | | | Episode, Moderate | | | | | | ([facility]) Spondylosis | | | | | | [...]
--- OUTSIDE RECORDS SUMMARY | ~2020-02-29 | XMS | Encounter Summary ---
Demographics + + + | Address | [address] | | | [place] [address] | + + + | Home Phone | | + + + | Preferred Language | Unknown | + + + | Marital Status | Single | + + + | Advent Affiliation | ADV | + + + [...] Team Providers + +------+ + | Care Closing Manager Name | Role | Phone | + +------+ + | Pedrito Gutierrez MD | PCP | | + +------+ + Reason for Visit + +--------+ + | Reason | Onset | Comments | | | Date | | + +--------+ + | Follow-up visit | 08/12/ | | | | 2006 | | + +--------+ + Encounter Details +--------+---------+ + + + | Date | Type | Department | Care Team | Description | +--------+---------+ + + + | 08/12/ | Office | [facility] at [facility] | Lukasz Charles, | Major Depressive | | 2006 | Visit | [address] | PhD [address] | Disorder, Recurrent | | | | [facility] | [facility] [place] | Episode, Moderate | | | | and Healing, | [address] | ([facility]); Neck Pain; | | | | | [phone] | Migraine Headache; | | | | Floor [place], [place] | | Spondylosis with | | | | [address] | | Myelopathy, Lumbar | | | | [phone] | | Region; Adjustment | | | | | | Disorder with | | | | | | Anxiety; Other Pain | | | | | | Disorders Related to | | | | | [...] this encounter Progress Notes Lukasz Charles - 08/12/2006 11:31 AM PSTPROGRESS NOTE: Belinda Meehan is a 46 y.o. female with head, abdominal, back, and leg pain. She has sym ptoms of depression and anxiety along with her pain. She reported that she has had a headac he since early this morning. We did some relaxation with imagery and she was able to warm h er hands and reduce the pressure feelings in her head. We discussed distraction. We talked about her niece who is coming to visit in October. She became more animated, exhibited fewer p ain behaviors and even laughed and smiled. We discussed the change in her when she focused on something other than pain. We discussed her self-management efforts. She is using relax ation techniques and she continues to walk for exercise. She is scheduled for evaluation by neurology for her headaches and by orthopedics for her knee. Ms. Meehan has ongoing depression and frustration. She is making some progress but has fr equent setbacks. She appears to have good insight and is making an effort to improve. Diagnosis: [place] I: 1. (296.32) Major depressive disorder, recurrent, moderate. 2. (309.24) Adjustment disorder with anxiety. 3. (307.89) Chronic pain disorder associated with both psychological factors and a gene ral medical condition. [place] II: Deferred [place] III: abdominal pain, migraine headache, low back pain. [place] IV: low finances [place] V: GAF 50 Plan: Return in 2 weeks. Check pacing, relaxation, activity, distraction. Ask about coping with previous headache. Continue cognitive/behavioral therapy. Total time spent with patient was approximately 45 minutes. LUKASZ CHARLES PHD [facility] [address] [place] [address] [facility], 4th [place] [address] documented in this encount er Plan of Treatment + + +--------+ + + | Name | Type | Priori | Associated Diagnoses | Order Schedule | | | | ty | | | + + +--------+ + + | [place] PSYCHOTHERPY, | Procedures | Routin | Major Depressive | Ordered: 08/12/2006 | | OFFICE (15-08) | | e | Disorder, Recurrent | | | | | | Episode, Moderate | | | | | | ([facility]) Neck Pain | | | | | | Migraine Headache | | | | | | Spondylosis with | | | | | | Myelopathy, Lumbar | | | | | | Region Adjustment | | | | | | Disorder with | | | | | | Anxiety Other Pain | | | | | | Disorders Related to | | | | | | Psychological | | | | | | Factors | | + + +--------+ + + documented as of this encounter Visit Diagnoses + + | Diagnosis | + + | Major depressive disorder, recurrent episode, moderate (HCC) Major depressive | | disorder, recurrent episode, moderate | + + | Neck pain Cervicalgia | + + | Migraine headache Migraine, unspecified, without mention of intractable migraine | | without mention of status migrainosus | + + | Spondylosis with myelopathy, lumbar region | + + | Adjustment disorder with anxiety | + + | Other pain disorders related to psychological factors | + + documented in this encounter"
--- OUTSIDE RECORDS SUMMARY | ~2020-02-29 | XMS | Encounter Summary ---
Demographics + + + | Address | [address] | | | [place] [address] | + + + | Home Phone [...] Team Providers + +------+ + | Care Medical Education Coordinator Name | Role | Phone | + +------+ + | Petrona Thapa | PCP | | | MD | | | + +------+ + Reason for Visit +--------+--------+ + | Reason | Onset | Comments | | | Date | | +--------+--------+ + | Other | 04/02/ | | | | 2017 | | +--------+--------+ + Encounter Details +--------+ + + + + | Date | Type | Department | Care Team | Description | +--------+ + + + + | 04/02/ | Telephone | [facility] | Alanis, | Other | | 2017 | | MEDICINE [address] | MD Petrona | | | | | [place], | [address] [facility] | | | | | [place] [address] | [place] [address] | | | | | [phone] | [phone] | | | | | | | [...] encounter Miscellaneous Notes Telephone Encounter - Nuris Hartman RN - 04/02/2018 2:30 PM PDTI contacted the patient and inquired if she had contacted the surgeon. She states she has not but did try and has n ot received a response. Sh states she has not slept in over a week I advised she continue to try to contact the surgeon as Dr Booth is not available until M onday and would not prescribe anything without seeing her She asked if there was anything she could try and I advised Melatonin which she states she was advised not to take this. I also suggested warm milk and she states she has a terrible a llergy to milk and this is not an option She will continue to try and make contact with the surgeon. elephone Encounter - Mary Kay Kuo - 04/02/2018 11:23 AM PDTPatient called, distressed. States that since h er surgery she has not been able to sleep. She has been waking up at 2 AM and unable to get comfortable enough to fall back asleep. Please advise. documented in this encounter Plan of Treatment +--------+---------+ + + + | Date | Type | Specialty | Care Team | Description | +--------+---------+ + + + | 05/17/ | Office | Internal Medicine | Alanis, | | | 2019 | Visit | | MD Petrona | | | | | | [facility] [address] | | | | | | [place] [address] | | | | | | [phone] | | | | | | | | +--------+---------+ + + + documented as of this encounter Visit Diagnoses Not on filedocumented in this encounter"
--- OUTSIDE RECORDS SUMMARY | ~2020-02-29 | XMS | Encounter Summary ---
Demographics + + + | Address | [address] | | | [place] [address] | + + + | Home Phone [...] Team Providers + +------+ + | Care Social Services Manager Name | Role | Phone | + +------+ + | Sulaiman Carrera MD | PCP | | + +------+ + Encounter Details +--------+ + + + + | Date | Type | Department | Care Team | Description | +--------+ + + + + | 02/23/ | Ancillary | Registration [id number] | Beto Meeks MD | | | 2006 | Registratio | [facility] | [address] | | | | n | [place] Mailcode: RPB07 | [place], [place] | | | | | [place], [place] | [address] | | | | | [address] | [phone] | | | | | [phone] | | | +--------+ + + + [...] + | VITAMIN D, | Routin | 02/23/2007 | | Results for this | | 25-HYDROXY, SERUM | e | 2:47 PM | | procedure are in the | | | | PDT | | results section. | + +--------+ + + + | TSH | Routin | 02/23/2007 | | Results for this | | | e | 2:47 PM | | procedure are in the | | | | PDT | | results section. | + +--------+ + + + documented in this encounter Results TSH-THYROID STIM HORMONE (02/23/2007 2:47 PM PDT) + + + + + + | Component | Value | Ref Range | Performed | Pathologist | | | | | At | Signature | + + + + + + | TSH | 1.70Comment: Test | 0.28 - 5.00 | | | | | performed by [facility] | uIU/ml | | | | | [facility] | | | | | | [facility]. | | | | + + + + + + + + | Specimen | + + | | + + + + + + + | Performing | Address | City/State/Zipcode | Phone Number | | Organization | | | | + + + + + | [facility] | [address] | [place] [address] | | | LABORATORY | | | | + + + + + VITAMIN D, 25-HYDROXY (02/23/2007 2:47 PM PDT) + + + + + + | Component | Value | Ref Range | Performed | Pathologist | | | | | At | Signature | + + + + + + | VITAMIN D | 51Comment: TEST | 20 - 57 ng/mL | | | | 25 HYDROXY | INFORMATION: VITAMIN D, | | | | | | 25-HYDROXYThis assay | | | | | | accurately quantifies | | | | | | the sum of vitamin | | | | | | D3,25-hydroxy and | | | | | | vitamin D2, 25-hydroxy. | | | | | | Optimum | | | | | | 25-hydroxyvitamin D | | | | | | concentration is 35 | | | | | | ng/mL or | | | | | | higher.Performed by [facility] | | | | | | [facility],[address] | | | | | | [address], [facility], [place] | | | | | | [address] | | | | | | [phone] | | | | | | Sincere [...] [facility] | [address] | [place], [place] | | | [facility] | | [address] | | + + + + + documented in this encounter Visit Diagnoses Not on filedocumented in this encounter"
--- OUTSIDE RECORDS SUMMARY | ~2020-02-29 | XMS | Encounter Summary ---
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 Plan: Emergency supply approved by [facility] in [place]. Quantity 35 was requested and will be filled. I will send a prescription for 40 additional oxycodone 5 mg. The patient will be seen in clinic in one week. Melisa Thorne / [id number] / [id number] / [id number] / [id number] Electronically signed by Kenisha Melton 08-21-2005 07:00:10 PM documented i n this encounter Plan of Treatment Not on filedocumented as of this encounter Visit Diagnoses Not on filedocumented in this encounter"
--- OUTSIDE RECORDS SUMMARY | ~2020-02-29 | XMS | Encounter Summary ---
Demographics + + + | Address | [address] | | | [place] [address] | + + + | Home Phone [...] Team Providers + +------+ + | Care Astronomy Instructor Name | Role | Phone | + +------+ + | Petrona Thapa | PCP | | | MD | | | + +------+ + Reason for Visit + + + | Reason | Comments | + + + | Follow-up | post bilateral L5-S1 on 01/19/15 | + + + | Back Pain | low back pain radiating down bilateral legs | + + + Encounter Details +--------+---------+ + + + | Date | Type | Department | Care Team | Description | +--------+---------+ + + + | 02/05/ | Office | [facility] [place] | Joe, | Chronic low back | | 2014 | Visit | PHYSIATRY [address] | MARY Montero [address] | pain (Primary Dx); | | | | [address] | [address] | SCOLIOSIS , | | | | [place], [place] | [place] [address] | IDIOPATHIC; Lumbar | | | | [address] | [phone] | radiculopathy | | | | [phone] | | primarily right; S/P | | | | |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; | | | | | | Fibromyalgia | +--------+---------+ + + + Social History [...] + | Blood Pressure | 100/64 | 02/05/2015 10:06 AM | | | | | PDT | | + + + + + | Pulse | 61 | 02/05/2015 10:06 AM | | | | | PDT [...] Weight | 85.3 kg (188 lb) | 02/05/2015 10:06 AM | | | | | PDT | | + + + + + | Height | 172.7 cm (5' 8") | 02/05/2015 10:06 AM | | | | | PDT | | + + + + + | Body Mass Index | 28.59 | 02/05/2015 10:06 AM | | | | | PDT | | + + + + + documented in this encounter Patient Instructions Patient Instructions Kylah Diaz PA-C - 02/05/2015 10:32 AM PDTContinue with physi wendi therapy Sacroiliiac Joint injection below the area of you fusion. Continue taking your medications as directed. Sacoiliitis: This is the term used to describe sacroiliac joint pain which connect the sacrum (very end of the spine) and pelvic bone. It occurs when there is movement of one pelvic bone on the other or a decrease in joint mobility with bending and twisting movements, mis-stepping, or when there is a leg length discrepancy. There can be pain to the buttocks region, into the groin or posterior thigh. Treatment consists of rest, physical therapy, Sacroiliac Belt, magnolia roid joint injections into the sacroiliac joint. Steroids are a very strong anti-inflammatory, this helps reduce pain by reducing swelling. Complications of steroids are bleeding, infection, and an increase of blood sugars if you a re diabetic. MCFP risk can lead to osteoporosis which is why we limited the number of injections to 3 times per year. With a sacroiliac joint injection, the steroid is placed i nside this joint. The procedure is about 20 minutes long. You will lie on your back while x-rays are taken. Once the region is marked, it is numbed and then injected with steroids. documented in this encounter Progress Notes Kylah Diaz PA-C - 02/05/2015 10:44 AM PDTFormatting of this note might be differe nt from the original. CHIEF COMPLAINT: Chief Complaint Patient presents with Follow-up post bilateral L5-S1 on 01/19/15 Back Pain low back pain radiating down bilateral legs HISTORY OF PRESENT ILLNESS: The patient is a 55 y.o. female being seen today in follow-up for complaints of back pain. The patient has been seen for this complaint in the past, with initial visit started by Dr Yudy Hsieh. Previously it was recommended that she receive a bilateral L5/S1 TFESI for richardson mbar radiculopathy. This was performed on 01/19/2015. She reports that the treatment was effe ctive for the first two weeks, however the pain returned and is localized to the low back. She rates the pain as 10 on scale of 1-10. She describes the pain as aching, sharp or sta bbing. Her symptoms worsen with sitting, kneeling, bending, twisting. Her symptoms improve with rest and changing positions along with taking pain medications. The patient does describe numbness of the right arm and leg.She does report generalized wea kness of the legs and arms. The patient does not report recent falls or trauma. She does not have bowel and bladder dysfunction. She does not have saddle anesthesia. She has tried PT, TENS, Steroids, Injections, Muscle relaxers and Braces. The patient has r eportedly had three prior lumbar surgeries which were performed by a Dr. García in [place]. The patient is unable to take NSAID's because apparently last time she took them she was black a nd blue all over. Patient's medications, allergies, past medical, surgical, social and family histories were reviewed and updated as appropriate. CURRENT MEDICATIONS: Current Outpatient Prescriptions Medication Sig Dispense Refill ascorbic acid (VITAMIN C) 500 mg tablet Take 500 mg by mouth Daily. betaxolol (BETOPTIC-S) 0.25% ophthalmic suspension Use twice daily Calcium Carbonate (CALTRATE 600 PO) TABS: 1 tablet by mouth four times a day cholecalciferol (VITAMIN D-3) 5000 UNITS TABS Take 5,000 Units by mouth Daily. Cyanocobalamin (B-12) 1000 MCG TBCR Take 1,000 mcg by mouth Every 30 days. diphenoxylate-atropine (LOMOTIL) 2.5-0.025 mg per tablet Take 1 tablet by mouth 4 times daily as needed for Diarrhea. DULoxetine (CYMBALTA) 30 mg capsule Take 30 mg by mouth Daily. (Patient taking differen tly: Take 60 mg by mouth Daily.) furosemide (LASIX) 80 mg tablet Take 80 mg by mouth 2 times daily. gabapentin (NEURONTIN) 300 mg capsule two caps three times daily HYDROcodone-acetaminophen (NORCO) 10-325 mg per tablet Take 1 tablet by mouth every 8 h ours as needed for Pain. ibandronate (BONIVA) 150 mg tablet Take 150 mg by mouth Every 30 days. levothyroxine (SYNTHROID, LEVOTHROID) 50 mcg tablet Take 50 mcg by mouth Daily. methocarbamol (ROBAXIN) 750 mg tablet Take 750 mg by mouth 3 times daily. metoprolol tartrate (LOPRESSOR) 50 mg tablet Take half a tablet by mouth twice daily. Multiple Vitamins-Minerals (COMPLETE WOMENS) TABS 1 tablet by mouth twice daily nitroglycerin (NITROSTAT) 0.[address] 0.4 mg under the tongue every 5 minute s as needed for Chest pain. omeprazole (PRILOSEC) 20 mg capsule Take 20 mg by mouth every morning (before breakfast ). ondansetron (ZOFRAN ODT) 4 mg disintegrating tablet Take 4 mg by mouth every 8 hours as needed for Nausea. potassium chloride (KLOR-CON) 20 MEQ packet Take 20 mEq by mouth 2 times daily. rOPINIRole (REQUIP) 1 mg tablet Take 1 mg by mouth 3 times daily. sucralfate (CARAFATE) 1 g tablet Take 1 g by mouth 4 times daily. topiramate (TOPAMAX) 50 MG tablet Take 50 mg by mouth 2 times daily. torsemide (DEMADEX) 5 mg tablet Take 5 mg by mouth Daily. travoprost (TRAVATAN Z) 0.004% ophthalmic solution 1 drop nightly. No current facility-administered medications for this visit. ALLERGIES: Allergies Allergen Reactions Amitriptyline Hcl Mnmlkcvyws-Lnfm-Wkkjtoxs Cephalexin Ciprofloxacin Clarithromycin Clindamycin Hcl Codeine Sulfate Ketorolac Levofloxacin Morphine Penicillins Sulfamethoxazole-Tmp Ds Tramadol Hcl REVIEW OF SYSTEMS: (in the last 24 hours) GENERALLY: No fever, chills, weight changes. EYES: No vision changes. EARS, NOSE, AND THROAT: No hearing loss or tinnitis,no difficulty swallowing, no hoarseness . NEUROMUSCULAR: Please see the review of systems discussed above in the history of present illness. In addition, the patient has no dizziness, no blackouts, no headaches. CARDIOVASCULAR: No chest pain, no palpitations PULMONARY: No shortness of breath, no cough. GASTROINTESTINAL: No nausea, vomiting or diarrhea GENITOURINARY: No dysuria or hematuria SKIN: No rashes. HEMATOLOGIC/LYMPHATIC: No abnormal bleeding PHYSICAL EXAMINATION: Filed Vitals: 02/05/15 1006 BP: 100/64 Pulse: 61 PainSc: 10 - Worst pain ever PainLoc: Back Body mass index is 28.59 kg/(m^2). GENERAL: The patient is well developed and well nourished. She does not appear uncomfortab le when seated. HEENT: HEAD/FACE: EYES: EARS: NASOPHARNYX: OROPHARNYX: Normocephalic and atraumatic. There are no areas of recent trauma. Normal sclerae without icterus. No drainage or tenderness. Clear without drainage. Clear without erythema. SKIN Limited skin exam shows no significant rashes or lesions. There are scars in the lumb ar region. She does have apparent redness and shiny skin to the distal anterior shins josie aterally. CHEST: The patient is in no acute respiratory distress with unlabored respirations. HEART: There is lower extremity edema. ABDOMEN: Soft, non-tender, non-distended, and without palpable masses. The patient is not overweight. NEUROLOGIC: The patient is awake, alert, and oriented to time, place, person. She follows simple and complex commands. Her speech is fluent. She comprehends speech well. She has no apparent deficits with short or nursing home memory. She has appropriate fund of knowledge Cranial nerves 2-12 appear grossly intact. Sensory exam does show diminished sensation to light touch in the upper and lower extremiti es. MUSCULOSKELETAL There is no tenderness in the midline of the cervical or thoracic spine. T here is apparent deformity of the spine and the patient stands and sits leaning to the right side. Straight leg raise and slump-sit are negative except for tight hamstrings. Romeo's maneuv er and impingement testing were negative for any groin pain. There was no tenderness to palp ation over the greater trochanters, she was tender over the sacral sulci bilaterally. The pa tient could not localize the majority of the pain to one specific area but did report pain a ll up and down the spine. Lumbar facet loading was negative. Strength testing showed 5/5 str ength throughout the lower extremities. The patient was able to heel and toe walk without di fficulty. There was no redness, effusion, warmth or joint line tenderness in the knees or an kles. RADIOGRAPHIC REVIEW: The patient's imaging was reviewed in detail with the patient today during the visit. The M RI of the lumbar spine from 05/08/14 shows the spinal fusion from L3-S1. There does still ap pear to be foraminal stenosis at the L5-S1 level. The MRI of the cervical spine from 2012 sh ows mild disc bulging, most pronounced at C5-C6. There is some foraminal narrowing on the ri ght at C3-C4 and C4-C5 as well as on the left at C5-C6. ASSESSMENT: 1. Chronic low back pain 2. SCOLIOSIS , IDIOPATHIC 3. Lumbar radiculopathy primarily right 4. S/P lumbar fusion 5. Fibromyalgia 6. Low leg edema and possible cellulitis PLAN: 1. The patient has had significant conservative care including medications (NSAIDS and narc otics), PT (multiple sessions over the years) and career information specialist. Unfortunately she nelly nues to have significant discomfort. She reports today the majority of her pain is to the l ow back region and locates it to the SI joints which is below the area of which hardware is placed. I did feel that she would be a good candidate for interventional procedures and I o ffered bilateral SI joint injections. We discussed how this would be targeting the low back pain in the last injection which was an epidural injection targeted a lot of the leg sympto ms. 2. The patient was informed that I do not do narcotic medication management and this is s omething she will need to continue seeing her PCP. I did not make any changes in her medica tions. 3. I informed her to continue to follow up with her PCP regarding the lower leg edema and p ossible cellulitis 4. The patient reports she is starting physical therapy again in [place]. 5. I will see the patient 2 weeks after the injection. She knows if conservative measures fail she may need surgery again. ELECTRONICALLY SIGNED BY: Kylah Diaz PA-C, 02/05/2015 SUPERVISING PHYSICIAN: Carlos Hsieh MD, who was present in the clinic today CC: Emmy documented in t his encounter Miscellaneous Notes Addendum Note - Lester Cintron CMA - 02/05/2015 11:04 AM PDT Addended by: LESTER CINTRON on: 02/05/2015 11:04 Modules accepted: Medications documented in this en counter Plan of [...] | | | | | [place] [address] | | | | | | [phone] | | | | | | | | +--------+---------+ + + + documented as of this encounter Results FL Sacroiliac Injection Right (02/27/2015 2:12 PM PDT) + + | Specimen | + + | | + + + + + | Narrative | Performed At | + + + | 02/27/2015 Bilateral Sacroiliac Joint Injection Clinical History: | [facility] | | Sacroiliitis ICD-9 720.0 Belinda Meehan presents to the | [facility] | | fluoroscopy suite for fluoroscopically guided bilateral sacroiliac | [facility] | | joint steroid injections as part of conservative management for | - IMAGING | | chronic pain with sacroiliitis. After informed consent was obtained | | | the patient laid in the prone position on the fluoroscopy table. The | | | bilateral sacroiliac joints were identified under fluoroscopic | | | guidance. The areas were prepped and draped in sterile fashion. A 25 | | | gauge 1-1/2 inch needle was inserted into each region and | | | approximately 3 mL of buffered 1% lidocaine was infused. Then a 22 | | | gauge spinal needle was inserted into the inferior joint spaces | | | under fluoroscopic guidance. Confirmation into the sacroiliac joints | | | obtained with infusion of approximately 1 mL of Omnipaque contrast | | | which showed flow within the joint spaces. Then a combination of 2 | | | mL 1% lidocaine and 2 mL of 40 mg per milliliter Kenalog was | | | infused divided between the two sides. The patient tolerated the | | | procedure well without complications. Pre- and post procedure blood | | | pressures were stable. The patient was given verbal as well as | | | written followup instructions. Prior to the start of the | | | procedure the following were performed and verified including | | | correct patient identity, correct site/side marked and visible, | | | agreement of the procedure to be done, correct patient positioning | | | and an accurate procedure consent form. Any safety precautions based | | | on clinical history and/or medications have been addressed. I | | | personally performed the procedure above. Estimated blood loss: | | | Minimal Complications: None Findings: As expected Anesthesia: | | | Local 1% Lidocaine | | + + + + + + + + | Performing | Address | City/State/Zipcode | Phone Number | | Organization | | | | + + + + + | [facility] | [address] | [place], [place] | [phone] | | [facility] | | [address] | | | - IMAGING | | | | + + + + + FL Sacroiliac Injection Left (02/27/2015 2:12 PM PDT) + + | Specimen | + + | | + + + + + | Narrative | Performed At | + + + | 02/27/2015 Bilateral Sacroiliac Joint Injection Clinical History: | [facility] | | Sacroiliitis ICD-9 720.0 Belinda Meehan presents to the | [facility] | | fluoroscopy suite for fluoroscopically guided bilateral sacroiliac [facility] | | joint steroid injections as part of conservative management for | - IMAGING | | chronic pain with sacroiliitis. After informed consent was obtained | | | the patient laid in the prone position on the fluoroscopy table. The | | | bilateral sacroiliac joints were identified under fluoroscopic | | | guidance. The areas were prepped and draped in sterile fashion. A 25 | | | gauge 1-1/2 inch needle was inserted into each region and | | | approximately 3 mL of buffered 1% lidocaine was infused. Then a 22 | | | gauge spinal needle was inserted into the inferior joint spaces | | | under fluoroscopic guidance. Confirmation into the sacroiliac joints | | | obtained with infusion of approximately 1 mL of Omnipaque contrast | | | which showed flow within the joint spaces. Then a combination of 2 | | | mL 1% lidocaine and 2 mL of 40 mg per milliliter Kenalog was | | | infused divided between the two sides. The patient tolerated the | | | procedure well without complications. Pre- and post procedure blood | | | pressures were stable. The patient was given verbal as well as | | | written followup instructions. Prior to the start of the | | | procedure the following were performed and verified including | | | correct patient identity, correct site/side marked and visible, | | | agreement of the procedure to be done, correct patient positioning | | | and an accurate procedure consent form. Any safety precautions based | | | on clinical history and/or medications have been addressed. I | | | personally performed the procedure above. Estimated blood loss: | | | Minimal Complications: None Findings: As expected Anesthesia: | | | Local 1% Lidocaine | | + + + + + + + + | Performing | Address | City/State/Zipcode | Phone Number | | Organization | | | | + + + + + | [facility] | [address] | [place], [place] | [phone] | | [facility] | | [address] | | | - IMAGING | | | | + + + + + documented in this encounter Visit Diagnoses + + | Diagnosis | + + | Chronic low back pain - Primary Lumbago | + + | SCOLIOSIS , IDIOPATHIC Scoliosis (and kyphoscoliosis), idiopathic | + + | Lumbar radiculopathy primarily right Thoracic or lumbosacral neuritis or radiculitis, | | unspecified | + + | S/P lumbar fusion Arthrodesis status | + + | Fibromyalgia Mylagia and myositis, unspecified | + + documented in this encounter
--- OUTSIDE RECORDS SUMMARY | ~2020-02-29 | XMS | Encounter Summary ---
Demographics + + + | Address | [address] | | | [place] [address] | + + + | Home Phone [...] + + + | Author | [facility] | | | and [place] | + + + | Organization | [facility] | | [...] Team Providers + +------+ + | Care Lens Coater Name | Role | Phone | + +------+ + | Petrona Thapa | PCP | | | MD | | | + +------+ + Reason for Visit + +--------+ + | Reason | Onset | Comments | | | Date | | + +--------+ + | Medication Refill | 06/13/ | | | | 2019 | | + +--------+ + | Medication Refill | 06/14/ | | | | 2018 | | + +--------+ + Encounter Details +--------+--------+ + + + | Date | Type | Department | Care Team | Description | +--------+--------+ + + + | 06/13/ | Refill | [facility] | Alanis, | Medication Refill; | | 2018 | | MEDICINE [address] | MD Petrona | Medication Refill | | | | [place], | [address] [facility] | | | | | [place] [address] | [place] [address] | | | | | [phone] | [phone] | | | | | | | [...] Telephone Encounter - Maggie Montoya LPN - 06/14/2019 1:52 PM PSTrx faxed, patient notifie d elephone Encounter - Ayla Quezada - 06/14/2019 12:49 PM PSTPatient called in to check the status of her me dication refill. Patient was advised that PCP is out of the office and will have to go to [facility] admissions clerk doctor. Patient would like to have the nurse call her back regarding this. Please advise elephone Susanna Salinas L - 06/13/2019 12:23 PM PSTPatient states home medical is supposed to f ax over prescription for pads and gloves. States she would like a call back once that's done . Please advise. elephone Encounter - Ayla Quezada - 06/13/2019 7:46 AM PSTMedication: Lopiramide Strength: 2 mg Directions: 4 tabs in the morning 2 evening Quantity Remainin Pharmacy: [facility] Call/Mail/Aviation Program Manager/Fax: Fax Date of Last Refill: 05/14/2019 Date of Last Visit: 05/16/2019 Date of Next Visit: 08/14/2018 documented in this en counter Plan of Treatment +--------+---------+ + + + | Date | Type | Specialty | Care Team | Description | +--------+---------+ + + + | 05/17/ | Office | Internal Medicine | Alanis, | | | 2019 | Visit | | MD Petrona | | | | | | [facility] [address] | | | | | | [place] [address] | | | | | | [phone] | | | | | | | | +--------+---------+ + + + documented as of this encounter Visit Diagnoses Not on filedocumented in this encounter"
--- OUTSIDE RECORDS SUMMARY | ~2020-02-29 | XMS | Encounter Summary ---
Demographics + + + | Address | [address] | | | [place] [address] | + + + | Home Phone [...] Team Providers + +------+ + | Care Termite Control Technician Name | Role | Phone | + +------+ + | Pedrito Gutierrez MD | PCP | | + +------+ + Encounter Details +--------+ + + + + | Date | Type | Department | Care Team | Description | +--------+ + + + + | 09/29/ | Documentati | [facility] | [facility], | | | 2006 | on | Center Outpatient | [facility]P | | | | | Therapy Center [address] | | | | | | Outpatient Therapy | | | | | | Center 2nd floor | | | | | | Mailcode: [id number] | | | | | | [place], [place] | | | | | | [address] | | | | | | [phone] | | | +--------+ + + + [...]
--- OUTSIDE RECORDS SUMMARY | ~2020-02-29 | XMS | Encounter Summary ---
Demographics + + + | Address | [address] | | | [place] [address] | + + + | Home Phone [...] Team Providers + +------+ + | Care Bench Molder Apprentice Name | Role | Phone | + +------+ + | Pedrito Gutierrez MD | PCP | | + +------+ + Reason for Visit + + + | Reason | Comments | + + + | Knee pain | | + + + Encounter Details +--------+---------+ + + + | Date | Type | Department | Care Team | Description | +--------+---------+ + + + | 08/26/ | Office | Orthopaedics | Angel Morales | Osteoarth NOS-L/Leg | | 2006 | Visit | [facility] | MD Darrion,PhD [address] | (Primary Dx) | | | | for Health and | [address] | | | | | Healing [address] | [place], [place] | | | | | [facility] | [address] | | | | | Health and Healing, | [phone] | | | | | [facility] | | | | | | Floor [place], [place] | | | | | | [address] | | | | | | [phone] | | | +--------+---------+ + + + [...] Weight | 88.9 kg (196 lb) | 08/26/2006 7:53 AM | | | | | PDT | | + + + + + | Height | 175.3 cm (5' 9") | 08/26/2006 7:53 AM | | | | | PDT | | + + + + + | Body Mass Index | 28.94 | 08/26/2006 7:53 AM | | | | | PDT | | + + + + + documented in this encounter Progress Notes Pamela Up Ma(Inactive) - 08/26/2006 8:04 AM PDTFormatting of this note might be dif ferent from the original. HISTORY: Belinda Meehan is a 46 y.o. female complaining of left knee pain, instability with falls, and locking. SYMPTOMS: First Noticed: two years ago with dx of left torn meniscus by Dr Helio Vasquez orthopedist. Result of: gradual onset. Location: global. Pain: Average pain level 8 out of 10. The pain is characterized as constant with weakness in left knee. Symptoms improve with: crutch walking and rest. Past Treatment: prior meniscus surgery of the left knee . Past Medical History Diagnosis Date CHRONIC ABDOMINAL [...] Pr inject trigger point, 1 or 2 Current outpatient prescriptions : MULTI VIT-FLUORIDE OR, None Entered, Disp: , Rfl: ACTONEL 35 MG TAB, take 1 tablet (35mg) by oral route once weekly in the morning, at least 30 minutes before the first food, beverage, or medication of the day, Disp: , Rfl: TRILEPTAL 150 MG TAB, 1 tablet bid, Disp: , Rfl: CYANOCOBALAMIN 1,000 MCG TAB, 1 x monthly, Disp: , Rfl: WELLBUTRIN XL 300 MG 24 HR TAB, 1 tab daily, Disp: , Rfl: PROMETHAZINE 25 MG TAB, once daily, Disp: , Rfl: CALCIUM + D 600 MG-200 UNIT TAB, 4 tabs daily, Disp: , Rfl: Allergies Allergen Reactions Keflex (cephalexin) Sulfa (sulfonamides) Codeine Penicillins Clindamycin Cipro (ciprofloxacin) Tramadol Morphine IM ( only in [facility]) made gut pain worse REVIEW OF SYSTEMS: Ten point review of systems completed. Pertinent positives from ROS include:multiple medical problems, see list, chronic pain. SOCIAL HISTORY: Ms. Meehan is single, disabled. PHYSICAL EXAM: Vital Signs: HEIGHT: Last 1 Encounter Ht Readings: Date Ht 08/26/2006 1.753 m (5' 9") WEIGHT: Last 1 Encounter Wt Readings: Date Wt 08/26/2006 88.905 kg (196 lbs) Body mass index is 28.94 kg/(m^2). Mental Status: Alert, awake, oriented and cooperative. OBSERVATION: Gait: antalgic Weightbearing:Left: 75% Skin is intact. Neurovascular exam: Bilateral lower extremities are intact in a L2 to S2 distribution. Alignment: normal Feet: normal Quadriceps Atrophy: Left 25% Effusion: None RANGE OF MOTION: Within normal limits except as noted. RIGHT LEFT Active 0-120 Passive Popliteal Angle Brace Limits TENDERNESS: Within normal limits except as noted. RIGHT LEFT Meniscus + Ricardo + Femur + Tibia + Patella + PATELLA: Within normal limits except as noted. RIGHT LEFT [place] Crepitation J Sign Apprehension LIGAMENTS: Within normal limits except as noted. RIGHT LEFT Valgus 30 Varus 30 Pierce Anterior Drawer Posterior Drawer Dial 30 Dial 90 NEUROVASCULAR: Within normal limits except as noted. RIGHT LEFT Pulses Tenderness L2-S2 OTHER: RADIOGRAPHS: Within normal limits except as noted. DATE RIGHT LEFT X-rays 02.07 Mild joint narrowing MRI 09.05 Subchondral cyst, meniscal extrusion. Arthrogram ASSESSMENT: OA [715.96] and muscular condition. PLAN: Physical therapy RX and muscular condition. Will benefit from a knee replacement as no transplant options are indicated if continued wi eght loss and muscular condition are not effective. Angel Morales M.D., Ph.D. Supervisor Coin Machine, Surgical Glass Vial Bending Conveyor Feeder Orthopedics & Cartilage Reconstruction Surgery Department of Orthopedics [email or web address] documented in this encou nter Plan of Treatment Not on filedocumented as of this encounter Visit Diagnoses + + | Diagnosis | + + | Osteoarthrosis, unspecified whether generalized or localized, lower leg - Primary | + + documented in this encounter
--- OUTSIDE RECORDS SUMMARY | ~2020-02-29 | XMS | Encounter Summary ---
Demographics + + + | Address | [address] | | | [place] [address] | + + + | Home Phone [...] Providers + +------+ + | Care Spray Unit Feeder Name | Role | Phone | + +------+ + | Petrona Thapa | PCP | | | MD | | | + +------+ + Reason for Visit +--------+--------+ + | Reason | Onset | Comments | | | Date | | +--------+--------+ + | Other | 01/04/ | | | | 2018 | | +--------+--------+ + Encounter Details +--------+ + + + + | Date | Type | Department | Care Team | Description | +--------+ + + + + | 01/04/ | Telephone | [facility] | Ulysses Genao MD | Other | | 2017 | | OTOLARYNGOLOGY [address] | [address] [place] [address] | | | | | [address] [facility] [address] | [address] [place] | | | | | [place] | [address] | | | | | [address] | | | | | | [phone] | | | +--------+ + + + [...] this encounter Miscellaneous Notes Telephone Encounter - Louise Randall, Telemarketing Sales Representative - 01/04/2018 2:48 PM PDTClosin g phone note 2: 57 PM PDTTelephone Encounter - Teja Hussein - 01/04/2018 1:08 PM PDTName of Caller: Kaleigh marcelino from [facility] out patient Name of Patient: Belinda Meehan Reason for call: [facility] was called to check the status on referral. Pt has an appointment at 10 am tomorrow and they can not see her without the referral. Informed [facility] that referral is pending referral. She would like a call when that is approved. Provider/Nurse: Dr. Genao Call back number: [phone] documented in this encou nter Plan of [...] | | | | | | [place] [address] | | | | | | [phone] | | | | | | | | +--------+---------+ + + + documented as of this encounter Visit Diagnoses Not on filedocumented in this encounter"
--- OUTSIDE RECORDS SUMMARY | ~2020-02-29 | XMS | Encounter Summary ---
Demographics + + + | Address | [address] | | | [place] [address] | + + + | Home Phone [...] Team Providers + +------+ + | Care Cfd Engineer Name | Role | Phone | [...] + + | 03/02/ | Telephone | [facility] | Alanis, | Lab Results | | 2017 | | MEDICINE [address] | MD Petrona | | | | | [place], | [address] [facility] | | | | | [place] [address] | [place] [address] | | | | | [phone] | [phone] | | | | | | | [...] Petrona | | | | | | [address] [place] [address] [address] [place] | | | | | | [place] [address] | | | | | | [phone] | | | | | | | | +--------+---------+ + + + documented as of this encounter Visit Diagnoses Not on filedocumented in this encounter"
--- OUTSIDE RECORDS SUMMARY | ~2020-02-29 | XMS | Encounter Summary ---
Demographics + + + | Address | [address] | | | [place] [address] | + + + | Home Phone | | + + + | Preferred Language | Unknown | + + + | Marital Status | | + + + | Congregational Affiliation | 1001 | + + + [...] Providers + +------+ + | Care Spray Machine Tender Name | Role | Phone | + +------+ + | Petrona Thapa | PCP | | | MD | | | + +------+ + Encounter Details +--------+ + + + + | Date | Type | Department | Care Team | Description | +--------+ + + + + | 02/23/ | Hospital | [facility] | [place] | Right shoulder pain, | | 2018 | Encounter | [facility] [place] [facility] | MD [address] | unspecified | | | | [address] | [place] | chronicity | | | | [place] | [place] [address] | | | | | [address] | [phone] | | | | | [phone] | | | +--------+ + + + [...] | 1 | 01/21/20 | | | (SHAYNA-CON M20) 20 | mouth every morning | [...] | | | | | | [facility] [address] | | | | | | [place] [address] | | | | | | [phone] | | | | | | | [...]
--- OUTSIDE RECORDS SUMMARY | ~2020-02-29 | XMS | Encounter Summary ---
Demographics + + + | Address | [address] | | | [place] [address] | + + + | Home Phone | | + + + | Preferred Language | Unknown | + + + | Marital Status | | + + + | Yarsani Affiliation | 1001 | + + + [...] Team Providers + +------+ + | Care Bearing Ring Assembler Name | Role | Phone | + +------+ + | Petrona Thapa | PCP | | | MD | | | + +------+ + Reason for Visit + +--------+ + | Reason | Onset | Comments | | | Date | | + +--------+ + | Medication Question | 02/22/ | | | | 2019 | | + +--------+ + Encounter Details +--------+ + + + + | Date | Type | Department | Care Team | Description | +--------+ + + + + | 02/22/ | Telephone | [facility] | Alanis, | Medication Question | | 2018 | | [place] [address] [address] | MD Petrona | | | | | [place], | [address] | | | | | [place] [address] | [place] [address] | | | | | [phone] | [phone] | | | | | | | [...] 1:20 PM PDTTelephone Encounter - Rebekah Maldonado - 02/22/2019 12:00 PM PDTPatient w timothyld [...] Petrona | | | | | | [facility] [address] | | | | | | [place] [address] | | | | | | [phone] | | | | | | | | +--------+---------+ + + + documented as of this encounter Visit Diagnoses Not on filedocumented in this encounter"
--- OUTSIDE RECORDS SUMMARY | ~2020-02-29 | XMS | Encounter Summary ---
Demographics + + + | Address | [address] | | | [place] [address] | + + + | Home Phone [...] Team Providers + +------+ + | Care Auto Service Station Attendant Name | Role | Phone | + +------+ + | Pedrito Gutierrez MD | PCP | | + +------+ + Reason for Visit + +--------+ + | Reason | Onset | Comments | | | Date | | + +--------+ + | Follow-up visit | 03/31/ | | | | 2006 | | + +--------+ + Encounter Details +--------+---------+ + + + | Date | Type | Department | Care Team | Description | +--------+---------+ + + + | 03/31/ | Office | [facility] | Lukasz Charles, | Major Depressive | | 2006 | Visit | [address] | PhD [address] [place] | Disorder, Recurrent | | | | [facility] | [facility] [place] | Episode, Moderate | | | | and Healing, | [address] | ([facility]); Spondylosis | | | | | [phone] | with Myelopathy, | | | | Floor [place], [place] | | Lumbar Region; Left | | | | [address] | | Knee Pain; | | | | [phone] | | Fibromyalgia | | | | | | syndrome 729.1; | | | | | | Adjustment [...] this encounter Progress Notes Lukasz Charles - 03/31/2007 8:56 AM PDTPROGRESS NOTE: Belinda Molly Meehan is a 46 y.o. female with head, abdominal, back, and leg pain. She has her left knee replaced and is in the recovery period. She walked with a cane today. She repor holly generally stable mood with some frustration and depression when she gets bored or feels isolated. She has been doing some self-care and she has been using relaxation and distracti on with good results. She has been reading and writing to keep her mind occupied. She has regular social contact with family. She is planning to have her other knee replaced as soon as she heals and she is optimistic. She requested another visit to coincide with medical f ollow-up. Ms. Meehan has some ongoing depression and frustration. She is not suicidal. She is stab le and is using some good self-care skills. She is healing from surgery and is optimistic ab out her next knee surgery. Diagnosis: Hosston I: 1. (296.32) Major depressive disorder, recurrent, moderate. 2. (309.24) Adjustment disorder with anxiety. 3. (307.89) Chronic pain disorder associated with both psychological factors and a gene ral medical condition. Hosston II: Deferred Hosston III: abdominal pain, migraine headache, low back pain. Hosston IV: low finances Hosston V: GAF 55-60 Plan: Return with next medical follow-up appointment. Check mood, knee surgery, pacing, relaxati on, activity, distraction. Continue cognitive/behavioral therapy. Discuss need for further sessions. Total time spent with patient was approximately 45 minutes. LUKASZ CHARLES PHD [facility] [address] [place] [address] And [facility], [address] [place] [address] documented in this encount er Plan of Treatment + + +--------+ + + | Name | Type | Priori | Associated Diagnoses | Order Schedule | | | | ty | | | + + +--------+ + + | [facility], | Procedures | Routin | Major Depressive | Ordered: 03/31/2007 | | OFFICE ([id number]) | | e | Disorder, Recurrent | | | | | | Episode, Moderate | | | | | | ([facility]) Spondylosis | | | | | | with Myelopathy, | | | | | | Lumbar Region Left | | | | | | [...] | Major depressive disorder, recurrent episode, moderate ([facility]) Major depressive | | disorder, recurrent episode, moderate | + + | Spondylosis with myelopathy, lumbar region | + + | Left Knee Pain Pain in joint, lower leg | + + | Fibromyalgia syndrome 729.1 Mylagia and myositis, unspecified | + + | Adjustment disorder with anxiety | + + documented in this encounter"
--- OUTSIDE RECORDS SUMMARY | ~2020-02-29 | XMS | Encounter Summary ---
Demographics + + + | Address | [address] | | | [place] [address] | + + + | Home Phone [...] Team Providers + +------+ + | Care Core Driller Helper Name | Role | Phone | [...] 2007 | Visit | Rheumatology [address] | WEIGHT RECORDER | syndrome 729.1 | | | | [address] | | (Primary Dx) | | | | Mailcode: OPC5 | | | | | | Outpatient Clinic | | | | | | Building [place], | | | | | | [place] [address] | | | | | | [phone] | | | +--------+---------+ + + + [...] this encounter Progress Notes Caitlin Rivera - 07/27/2007 4:00 PM PST Subjective: I [...] have much room. I wonder about small clinical nutritionist ior fossa. There is a disc bulge [...] 07/05/2007 56.0 15.0-75.0 Final Test performed by [facility]. VITAMIN D 25 HYDROXY (ng/mL) 07/03/2007 47 20-57 Final Comment: TEST INFORMATION: VITAMIN D, 25-HYDROXY This assay accurately quantifies the sum of vitamin D3, 25-hydroxy and vitamin D2, 25-hydroxy. Deficiency: Less than 20 ng/mL Insufficiency: 20-29 ng/mL Optimum Level: 30-80 ng/mL Possible Toxicity: Greater than 80 ng/mL Performed by [facility], [address] [place] [id number] [email or web address], Sincere Jordan MD - Lab. Director documented in this encount er Plan of Treatment Not on filedocumented as of this encounter Visit Diagnoses + + | Diagnosis | + + | Fibromyalgia syndrome 729.1 - Primary Mylagia and myositis, unspecified | + + documented in this encounter"
--- OUTSIDE RECORDS SUMMARY | ~2020-02-29 | XMS | Encounter Summary ---
Demographics + + + | Address | [address] | | | [place] [address] | + + + | Home Phone [...] Providers + +------+ + | Care Mail Clerk Bills Name | Role | Phone | + +------+ + PCP | Unavailable | + +------+ + Encounter Details +--------+ + + + + | Date | Type | Department | Care Team | Description | +--------+ + + + + | 07/03/ | Office | [facility], | Clinic, [...] as of this encounter Progress Notes Interface, Building Drafter In - 09/13/2005 2:06 AM PST [id number] [facility] Date: 07/03/2005 Clinic: Endocrinology Subjective: Belinda is here for a followup visit in the Endocrinology Clinic for multiple medical problems related to the metabolic syndrome. In addition, she has had vitamin D deficiency with secondary hyperparathyroidism, type 2 diabetes mellitus that has abated after a gastric bypass surgery, hypertension that has improved after gastric bypass surgery, asthma that has improved after gastric bypass surgery, and obstructive sleep apnea with restless leg syndrome that has improved after gastric bypass surgery. She underwent gastric bypass surgery in November 2003. She subsequently underwent a followup surgery in November 2004 for repair of an abdominal hernia and removal of excess skin from her lower abdomen. She has been doing fairly well overall, but her biggest concern now is that nearly daily episodes of severe mid-left abdominal pain rated at 7/10. It occasionally wakes her up at night but also occurs during the day time. Although she has discontinued all of her narcotic pain medications, this pain syndrome occasionally was brought on by narcotic use in the past. She has not been able to link it to a specific type of food or activity. She also continues to have arthritic pain involving her shoulders and spine. She has had pain in her spine in part in relation to previous vertebral compression fractures. The spinal pain has been greatly diminished by the use of a TENS unit. In addition to these symptoms, she has been having lots of gastroesophageal reflux symptoms. She recently underwent an esophagogastroduodenoscopy which showed a hiatal hernia. The hiatal hernia may be contributing to her GERD symptoms. She reports increased bruising but apparently had a negative workup performed by her primary care physician. She was not anemic, her INR is normal, but a d-dimer apparently was mildly elevated. Recent urinalysis also was normal. I had ordered a complete metabolic set and repeat 25-hydroxyvitamin D concentration both of which are pending through the laboratory in [place]. Allergies: PENICILLIN, CODEINE, KEFLEX, SULFA, CIPRO, AND CLINDAMYCIN. Medications: 1. Calcium 600 mg with vitamin D, 4 tablets daily. 2. Promethazine 25 mg p.o. q. 6 hours p.r.n. nausea. 3. Vitamin E 400 units daily. 4. Magnesium 400 mg b.i.d. 5. Multivitamin 2 daily. 6. Cyanocobalamin 1 mg intramuscularly once or twice monthly. 7. Ranitidine 150 mg p.o. b.i.d. 8. Wellbutrin extended release 300 mg every morning. 9. Glucosamine sulfate 1500 mg b.i.d. 10. Diclofenac 50 mg b.i.d. 11. Verapamil 240 mg daily. 12. Vistaril 25 mg nightly p.r.n. insomnia. 13. Aspirin 81 mg daily. 14. Vitamin C 1000 mg daily (500 mg x2). 15. Betoptic S 0.25%, 1 drop in her right eye t.i.d. Physical Examination: Vital Signs: Weight 159.2 pounds (decreased 4.5 pounds since December 2004), 70 inches tall, blood pressure 110/78, and pulse 72 beats per minute and regular. General: She was alert and in no acute distress. Mood was in normal limits. Cardiac: Regular rate and rhythm, no murmur, S3, S4, or rubs. Normal pulses. Abdomen: No hepatosplenomegaly, masses, or tenderness. Extremities: Trace pretibial edema. Assessment and Plan: In summary, Belinda is a 45-year-old woman who has done extremely well following gastric bypass surgery in November 2003. Her body mass index is now approximately 23 kg/sq m which is normal. This is in sharp contrast to her prior body mass index that was about 48 kg/sq m. She has experienced tremendous health benefits as a result of the extensive weight reduction. At this point, she has refractory pain which may be related to some type of tethering of her small bowel resulting in intermittent obstruction resulting from a gas or stool causing a tethering of her small bowel. She has had small-bowel follow-through studies and other types of evaluation, but she has not had a study using an ingestible capsule small bowel endoscopy. It may be worthwhile for her to be evaluated by Gastroenterology to determine whether such a procedure may be useful. She also will be following up in the Bariatric Surgery Clinic this afternoon to be re-assessed from that standpoint. Her blood pressure is excellent, and her diabetes appears to be ameliorated for the time being. I will await to receive the results of her pending laboratory studies which were done several days ago in [place]. Beto Meeks M.D. PD / HS [id number] / [id number] / [id number] / [id number] cc: Chris Padgett M.D. [facility] Electronically signed by Beto Meeks 09-12-2005 02:23:07 AM documented i n this encounter Plan of Treatment Not on filedocumented as of this encounter Visit Diagnoses Not on filedocumented in this encounter"
--- OUTSIDE RECORDS SUMMARY | ~2020-02-29 | XMS | Encounter Summary ---
Demographics + + + | Address | [address] | | | [place] [address] | + + + | Home Phone [...] Providers + +------+ + | Care Manager Travel Name | Role | Phone | + [...] + + documented as of this encounter Procedure Notes Interface, Odd Bundle Worker In - 05/14/2006 2:02 AM PST CAPSULE TRANSIT INFORMATIONTOTAL TRANSIT TIME 07:52:22. COMMENTS:CAPSULE DELIVERED INTO JACQUIE LIMB ENDOSCOPICALLY PROCEDURES:SMALL BOWEL CAPSULE ENDOSCOPY: CPT: 60339. PERSONNEL:RAPID EMPLOYEE RELATIONS ADMINISTRATOR: PRO LE MD. OILING MACHINE OPERATOR: BREE BACON RA. REFERRED BY:GIULIANA JOSE MD. EXAM LOCATION:EXAM PERFORMED IN ENDOSCOPY SUITE. OUTPATIENT PATIENT CONSENT:PROCEDURE, ALTERNATIVES, RISKS AND BENEFITS DISCUSSED, CONSENT OBTAINED, FROM PATIENT. CONSENT WAS OBTAINED BY THE PA. CONSENT TO BE CONTACTED WAS NOT REQUESTED. OBSCURE BLEEDINGANEMIA, SIGNS AND SYMPTOMSWEIGHT LOSS. CURRENT MEDICATIONS:PATIENT IS NOT CURRENTLY TAKING COUMADIN. MEDICAL/SURGICAL HISTORY:JACQUIE-EN-Y GASTRIC BYPASS, ALLERGIES:NO KNOWN ALLERGIES. PRE-EXAM PHYSICAL:PERFORMED MAY 12, 2006. ENTIRE PHYSICAL EXAM WAS NORMAL. EXAM INFO:MAXIMUM DEPTH REACHED DISTAL ILEUM. USED NONE FOR COLON PREPARATION. PATIENT INFORMATIONASA CLASSIFICATION: II. PATIENT TOLERANCE: GOOD. COMMENTS:SUBOPTIMAL VISUALIZATION OF DISTAL SMALL BOWEL DUE TO DEBRIS FINDINGMUCOSAL ABNORMALITY: AT DUODENUM TIME OF IDENTIFICATION: 00:53:17. ERYTHEMA PRESENT. MUCOSAL ABNORMALITY: AT PROXIMAL SMALL BOWEL TIME OF IDENTIFICATION: 01:37:35. RED SPOTS PRESENT. COMMENT: 2 PETECHIAE. MUCOSAL ABNORMALITY: AT JEJUNUM TIME OF IDENTIFICATION: 01:28:50. ABSENT VILLI. OTHER: EXTRINSIC COMPRESSION AT MID SMALL BOWEL TIME OF IDENTIFICATION: 03:31:08. COMMENT: NONOBSTRUCTIVE. COMMENTSGIVEN POOR VISUALIZATION, UNABLE TO BE SURE IF CAPSULE ENTERED COLON- THOUGH I THINK NOT. ABNORMAL EXAMINATION, SEE FINDINGS ABOVE. COMMENTS:MINIMAL ABNORMAL FINDINGS, WHICH I DO NOT THINK EXPLAIN ANEMIA OR WEIGHT LOSS. VIZUALIZATION SUBOPTIMAL BUT NO OVERT BLEEDING SEEN. GIVEN THAT I CANNOT BE SURE CAPSULE PASSED INTO COLON, COULD CONSIDER XRAY TO ASSESS IF PATIENT DEVELOPS ANY GI SYMPTOMS. UNPLANNED INTERVENTION:NO UNPLANNED INTERVENTIONS WERE REQUIRED. UNPLANNED EVENTS:THERE WERE NO COMPLICATIONS. DISPOSITION:AFTER PROCEDURE PATIENT SENT HOME. REPORT ENTERED BY: PRO LE MDElectronically signed by Interface, Odd Bundle Worker In at 1 07/14/2005 2:02 AM PSTInterface, Odd Bundle Worker In - 05/13/2006 2:02 AM PST PROCEDURES:PANENDOSCOPY (EGD) CPT: 53905. WITH WITH CAPSULE PLACEMENT PERSONNEL:THE ATTENDING PHYSICIAN WAS PRESENT DURING THE ENTIRE PROCEDURE. FELLOW: SELIN FITZGERALD MD. LEVEL OF SUPERVISION: 2. ENDOSCOPIST: PRO LE MD. NURSE: GIULIANA SALAZAR. OILING MACHINE OPERATOR: COMFORT ROBBINS RN. REFERRED BY:GIULIANA JOSE MD. EXAM LOCATION:EXAM PERFORMED IN ENDOSCOPY SUITE. OUTPATIENT PATIENT CONSENT:PROCEDURE, ALTERNATIVES, RISKS AND BENEFITS DISCUSSED, CONSENT OBTAINED, FROM PATIENT. CONSENT WAS OBTAINED BY THE PHYSICIAN. CONSENT TO BE CONTACTED WAS GIVEN. EVALUATION OF:AMINTA LOW FERRITIN. CURRENT MEDICATIONS:PATIENT IS NOT CURRENTLY TAKING COUMADIN. MEDICAL/SURGICAL HISTORY:JACQUIE-EN-Y GASTRIC BYPASS, ALLERGIES:NO KNOWN ALLERGIES. COMMENTS:46 YO WOMAN WITH IRON DEFICIENCY ANEMIA AND ABDOMINAL PAIN S/P JACQUIE-EN-Y GASTRIC BYPASS. EGD AND COLONOSCOPY DID NOT REVEAL CAUSE OF BLOOD LOSS. PRE-EXAM PHYSICAL:PERFORMED MAY 12, 2006 ENTIRE PHYSICAL EXAM WAS NORMAL. EXAM INFO:MAXIMUM DEPTH OF INSERTION JEJUNUM, INTENDED JEJUNUM. PATIENT POSITION: ON LEFT SIDE. DURATION OF EXAM: 15 MINUTES. VOCAL CORDS NOT VISUALIZED. GASTRIC RETROFLEXION PERFORMED. IMAGES TAKEN. ASA CLASSIFICATION: II. TOLERANCE: GOOD. SEDATION MEDS:PATIENT ASSESSED AND FOUND TO BE APPROPRIATE FOR MODERATE (CONSCIOUS) SEDATION. SEDATION WAS MANAGED BY THE ENDOSCOPIST. FENTANYL 75 MCG. GIVEN IV. MIDAZOLAM 3 MG. GIVEN IV. MONITORING:BP AND PULSE MONITORING DONE. OXIMETRY USED. INSTRUMENT(S):GIF Q160. SERIAL #[id number]. - PRIOR SURGERY: CARDIA. COMMENTS: NORMAL JACQUIE-EN-Y GASTRIC BYPASS ANATOMY WITHOUT ABNORMALITY. THE CAPSULE WAS DEPLOYED IN THE EFFERENT LIMB OF THE SMALL BOWEL WITHOUT COMPLICATION. ABNORMAL EXAMINATION, SEE FINDINGS ABOVE. COMMENTS:1. POST JACQUIE-EN-Y GASTRIC BYPASS ANATOMY 2. CAPSULE SUCCESSFULLY DEPLOYED IN THE EFFERENT LIMB OF THE SMALL BOWEL UNPLANNED INTERVENTION:NO UNPLANNED INTERVENTIONS WERE REQUIRED. UNPLANNED EVENTS:THERE WERE NO COMPLICATIONS. DISPOSITION:AFTER PROCEDURE PATIENT SENT TO SHORT STAY UNIT. AFTER RECOVERY PATIENT SENT HOME. REPORT ENTERED BY: SELIN FITZGERALD MD documented in this encounter Plan of Treatment Not on filedocumented as of this encounter Procedures + +--------+ + + + | Procedure Name | Priori | Date/Time | Associated Diagnosis | Comments | | | ty | | | | + +--------+ + + + | EGD | | 05/12/2006 | | | + +--------+ + + + | [place] GI TRACT IMAGING, | | 05/12/2006 | | | | INTRALUMINAL | | | | | + +--------+ + + + documented in this encounter Visit Diagnoses Not on filedocumented in this encounter"
--- OUTSIDE RECORDS SUMMARY | ~2020-02-29 | XMS | Encounter Summary ---
Demographics + + + | Address | [address] | | | [place] [address] | + + + | Home Phone | | + + + | Preferred Language | Unknown | + + + | Marital Status | | + + + | Christian Affiliation | 1001 | + + + | Race | White | + + + | Ethnic Group | Not or | + + + Author + + + | Author | [facility] | | | and [place] | + + + | Organization | [facility] | | [...] Providers + +------+ + | Care Channel Layer Name | Role | Phone | + +------+ + | Petrona Thapa | PCP | | | MD | | | + +------+ + Reason for Visit + +--------+ + | Reason | Onset | Comments | | | Date | | + +--------+ + | Follow-up | 12/13/ | | | | 2018 | | + +--------+ + Encounter Details +--------+ + + + + | Date | Type | Department | Care Team | Description | +--------+ + + + + | 12/13/ | Telephone | [facility] | Alanis, | Follow-up | | 2018 | | MEDICINE [address] | MD Petrona | | | | | [place], | [address] [facility] | | | | | [place] [address] | [place] [address] | | | | | [phone] | [phone] | | | | | | | [...] Telephone Encounter - Maggie Montoya LPN - 12/14/2018 4:55 PM PDTPatient notified of co mments elephone Encount er - Maggie Montoya LPN - 12/14/2018 2:12 PM PDTOn-Call MD Please review x-ray results of hips and CT of Lumbar/Thoracic spine results on 12/11/18.Elec tronically signed by Maggie Montoya LPN at 12/14/2018 2:14 PM PDTTelephone Encounter - Mary Kay Grey - 12/14/2018 2:05 PM PDTPatient called and would like to speak with nurse benny martinezing her xray reports that were send from [facility]. Records are in chart now. Patient wants to know if an electrical controls engineer provider can review them since pcp is out of the office . Please advise. elephon e Encounter - Juliane Elean - 12/13/2018 11:15 AM PDTPatient called stating she was in the emergency room last weekend. Unable to find visit of incident, states she fell on her back a nd has osteoporosis. Wanted to make sure everything was okay, x-rays where taken. States the doctor will be getting a report shortly and is aware Maggie and Dr. Booth is out, please advise documented in this encounter Plan of [...] | | | | | [place] [address] | | | | | | [phone] | | | | | | | | +--------+---------+ + + + documented as of this encounter Visit Diagnoses Not on filedocumented in this encounter"
--- OUTSIDE RECORDS SUMMARY | ~2020-02-29 | XMS | Encounter Summary ---
Demographics + + + | Address | [address] | | | [place] [address] | + + + | Home Phone [...] Team Providers + +------+ + | Care Group Care Worker Name | Role | Phone | + +------+ + PCP | Unavailable | + +------+ + Encounter Details +--------+ + + + + | Date | Type | Department | Care Team | Description | +--------+ + + + + | 10/22/ | Results | General Surgery | Chris Padgett, | | | 2003 | Only | [address] | [address] | | | | | Loop Mailcode: | [address] | | | | | [id number] [facility] | [place], [place] | | | | | [address] | [address] | | | | | [place], [place] | [phone] | | | | | [address] | | | | | | [phone] | | | +--------+ + + + [...] + | CBC ONLY | Routin | 11/27/2003 | | Results for this | | | e | 8:59 AM | | procedure are in the | | | | PDT | | results section. | + +--------+ + + + | COMPLETE METABOLIC | Routin | 11/27/2003 | | Results for this | | SET | e | 8:55 AM | | procedure are in the | | (NA,K,CL,CO2,BUN,CRE | | PDT | | results section. | | AT,GLUC,CA,AST,ALT,B | | | | | | DEYA TOTAL,ALK | | | | | | PHOS,ALB,PROT TOTAL) | | | | | + +--------+ + + + | TYPE AND SCREEN | Urgent | 11/22/2003 | | Results for this | | | | 6:55 AM | | procedure are in the | | | | PDT | | results section. | + +--------+ + + + | X-RAY CHEST 2 VIEW | Routin | 10/23/2003 | | Results for this | | | e | 3:30 PM | | procedure are in the | | | | PDT | | results section. | + +--------+ + + + | COMPLETE METABOLIC | Routin | 10/23/2003 | | Results for this | | SET | e | 2:35 PM | | procedure are in the | | (NA,K,CL,CO2,BUN,CRE | | PDT | | results section. | | AT,GLUC,CA,AST,ALT,B | | | | | | DEYA TOTAL,ALK | | | | | | PHOS,ALB,PROT TOTAL) | | | | | + +--------+ + + + | CBC ONLY | Routin | 10/23/2003 | | Results for this | | | e | 2:35 PM | | procedure are in the | | | | PDT | | results section. | + +--------+ + + + documented in this encounter Results CBC ONLY WITH PLATELET (11/27/2003 8:59 AM PDT) + + + + + + | Component | Value | Ref Range | Performed | Pathologist | | | | | At | Signature | + + + + + + | WHITE CELL | 10.8 | 4.4 - 11.0 K/cu | [facility] | | | COUNT | | mm | DEPARTMENT | | | | | | OF | | | | | | PATHOLOGY | | + + + + + + | RED CELL | 3.67 | 3.65 - 5.10 | [facility] | | | COUNT | | M/cu mm | DEPARTMENT | | | | | | OF | | | | | | PATHOLOGY | | + + + + + + | HEMOGLOBIN | 11.8 | 11.4 - 15.0 | [facility] | | | | | g/dL | DEPARTMENT | | | | | | OF | | | | | | PATHOLOGY | | + + + + + + | HEMATOCRIT | 34.7 | 33.0 - 44.6 % | [facility] [...] + + + + | MCH | 32.1 (H) | 29.0 - 32.0 pg | [facility] | | | | | | DEPARTMENT | | | | | | OF | | | | | | PATHOLOGY | | + + + + + + | MCHC | 34.0 [...] + + + + | PLATELET | 302 | 150 - 400 K/cu | [facility] | | | COUNT | | mm | DEPARTMENT | | | | | | OF | | | | | | PATHOLOGY | | + + + + + + | MPV | 8.6 | 7.4 - 10.4 fL | [facility] [...] | + + + + + | [facility] DEPARTMENT OF | [address] | [place] [address] | | | PATHOLOGY | [address] | | | + + + + + | [facility] DEPARTMENT OF | [address] | [place] [address] | | | PATHOLOGY | [address] | | | + + + + + COMP METABOLIC SET (11/27/2003 8:55 AM PDT) + +---------+ + + + | Component | Value | Ref Range | Performed | Pathologist | | | | | At | Signature | + +---------+ + + + | GLUCOSE, | 113 (H) | 65 - 110 mg/dL | [facility] | | | PLASMA | | | DEPARTMENT | | | (LAB) | | | OF | | | | | | PATHOLOGY | | + +---------+ + + + | BUN, PLASMA | 15 | 6 - 20 mg/dL | [facility] [...] +---------+ + + + | BILIRUBIN | 0.8 | 0.3 - 1.2 mg/dL | [facility] | | | TOTAL | | | DEPARTMENT | | | | | | OF | | | | | | PATHOLOGY | | + +---------+ + + + | ALK PHOS | 61 | 42 - 98 U/L | [facility] | | | | | | DEPARTMENT | | | | | | OF | | | | | | PATHOLOGY | | + +---------+ + + + | AST(SGOT) | 53 (H) | 15 - 41 U/L | [...] +---------+ + + + | CHLORIDE, | 99 | 98 - 107 mmol/L | [facility] [...] + + + | ALT (SGPT) | 50 (H) | 13 - 48 U/L | [...] DEPARTMENT OF | [address] | [place] [address] | | | PATHOLOGY | [address] | | | + + + + + | [facility] DEPARTMENT | [address] | [place] [address] | | | PATHOLOGY | [address] | | | + + + + + TYPE AND SCREEN (11/22/2003 6:55 AM PDT) + +-------+ + + + | Component | Value | Ref Range | Performed | Pathologist | | | | | At | Signature | + +-------+ + + + | ABO GROUP | O | | [facility] | | | | | | DEPARTMENT | | | | | | OF | | | | | | PATHOLOGY | | + +-------+ + + + | RH TYPE | POS | | [facility] | | | | | | DEPARTMENT | | | | | | OF | | | | | | PATHOLOGY | | + +-------+ + + + | ANTIBODY | NEG | | [facility] | | | SCREEN | | | DEPARTMENT | | | | | | OF | | | | | | PATHOLOGY | | + +-------+ + + + + + | Specimen | + + | | + + + + + | Narrative | Performed At | + + + | SPEC OUTDATE 11-25-03 @ 0700 | [facility] | | | DEPARTMENT OF | | | PATHOLOGY | + + + + + + + + | Performing | Address | City/State/Zipcode | Phone Number | | Organization | | | | + + + + + | [facility] DEPARTMENT OF | [address] | [place] [address] | | | PATHOLOGY | [address] | | | + + + + + | [facility] DEPARTMENT OF | [address] | [place] [address] | | | PATHOLOGY | [address] | | | + + + + + CHEST 2 VIEW (10/23/2003 3:30 PM PDT) + + + + + + | Component | Value | Ref Range | Performed | Pathologist | | | | | At | Signature | + + + + + + | CHEST, 2 | Radiologist 1: BLOSSOM, | | | | | VIEWS [place] | Joanna GOODWINEXAM:PA and | | | | | STEREO | lateral chest | | | | | | COMPARISON:None | | | | | | FINDINGS:Heart size is | | | | | | normal. Mediastinal | | | | | | contours normal.There is | | | | | | no pleural effusion. | | | | | | There is a large | | | | | | amount ofoverlying | | | | | | adipose tissue which | | | | | | somewhat obscures | | | | | | visualization ofthe | | | | | | lungs. The lungs are | | | | | | clear without focal | | | | | | consolidation. | | | | | | IMPRESSION: 1. Obesity, | | | | | | otherwise within normal | | | | | | limits. | | | | + + + + + + + + | Specimen | + + | | + + + +---------+ + + | Performing | Address | City/State/Zipcode | Phone Number | | Organization | | | | + +---------+ + + | [facility] DEPARTMENT OF | | | | | RADIOLOGY | | | | + +---------+ + + CBC ONLY WITH PLATELET (10/23/2003 2:35 PM PDT) + +-------+ + + + | Component | Value | Ref Range | Performed | Pathologist | | | | | At | Signature | + +-------+ + + + | WHITE CELL | 10.3 | 4.4 - 11.0 K/cu | [facility] | | | COUNT | | mm | DEPARTMENT | | | | | | OF | | | | | | PATHOLOGY | | + +-------+ + + + | RED CELL | 3.97 | 3.65 - 5.10 | [facility] | | | COUNT | | M/cu mm | DEPARTMENT | | | | | | OF | | | | | | PATHOLOGY | | + +-------+ + + + | HEMOGLOBIN | 12.7 | 11.4 - 15.0 | [facility] | | | | | g/dL | DEPARTMENT | | | | | | OF | | | | | | PATHOLOGY | | + +-------+ + + + | HEMATOCRIT | 37.5 | 33.0 - 44.6 % | [facility] | | | | | | DEPARTMENT | | | | | | OF | | | | | | PATHOLOGY | | + +-------+ + + + | MCV | 94.2 | 80.0 - 96.0 fL | [facility] | | | | | | DEPARTMENT | | | | | | OF | | | | | | PATHOLOGY | | + +-------+ + + + | MCH | 32.0 | 29.0 - 32.0 pg | [facility] | | | | | | DEPARTMENT | | | | | | OF | | | | | | PATHOLOGY | | + +-------+ + + + | MCHC | 33.9 | 33.4 - 35.5 | [facility] | | | | | g/dL | DEPARTMENT | | | | | | OF | | | | | | PATHOLOGY | | + +-------+ + + + | RDW | 13.0 | 11.5 - 15.0 % | [facility] | | | | | | DEPARTMENT | | | | | | OF | | | | | | PATHOLOGY | | + +-------+ + + + | PLATELET | 237 | 150 - 400 K/cu | [facility] | | | COUNT | | mm | DEPARTMENT | | | | | | OF | | | | | | PATHOLOGY | | + +-------+ + + + | MPV | 9.7 | 7.4 - 10.4 fL | [facility] [...] | + + + + + | [facility] DEPARTMENT OF | [address] | [place] [address] | | | PATHOLOGY | [address] | | | + + + + + | [facility] DEPARTMENT OF | [address] | [place] [address] | | | PATHOLOGY | [address] | | | + + + + + COMP METABOLIC SET (10/23/2003 2:35 PM PDT) + +---------+ + + + | Component | Value | Ref Range | Performed | Pathologist | | | | | At | Signature | + +---------+ + + + | GLUCOSE, | 86 | 65 - 110 mg/dL | [facility] | | | PLASMA | | | DEPARTMENT | | | (LAB) | | | OF | | | | | | PATHOLOGY | | + +---------+ + + + | BUN, PLASMA | 11 | 6 - 20 mg/dL | [facility] | | | (LAB) | | | DEPARTMENT | | | | | | OF | | | | | | PATHOLOGY | | + +---------+ + + + | CREATININE | 1.4 (H) | 0.6 - 1.1 mg/dL | [...] + + + | ALK PHOS | 66 | 42 - 98 U/L | [facility] | | | | | | DEPARTMENT | | | | | | OF | | | | | | PATHOLOGY | | + +---------+ + + + | AST(SGOT) | 29 | 15 - 41 U/L | [facility] | | | | | | DEPARTMENT | | | | | | OF | | | | | | PATHOLOGY | | + +---------+ + + + | SODIUM, | 142 | 136 - 145 | [facility] | [...] | + + + + + | [facility] DEPARTMENT OF | [address] | [place] [address] | | | PATHOLOGY | [address] | | | + + + + + | [facility] DEPARTMENT OF | [address] | [place] [address] | | | PATHOLOGY | [address] | | | + + + + + documented in this encounter Visit Diagnoses Not on filedocumented in this encounter"
--- OUTSIDE RECORDS SUMMARY | ~2020-02-29 | XMS | Encounter Summary ---
Demographics + + + | Address | [address] | | | [place] [address] | + + + | Home Phone [...] Team Providers + +------+ + | Care Audit Control Clerk Name | Role | Phone | + +------+ + | Pedrito Gutierrez MD | PCP | | + +------+ + Reason for Visit + +--------+ + | Reason | Onset | Comments | | | Date | | + +--------+ + | Preop | | | + +--------+ + | Pre-op evaluation | 02/21/ | | | | 2008 | | + +--------+ + Encounter Details +--------+---------+ + + + | Date | Type | Department | Care Team | Description | +--------+---------+ + + + | 02/21/ | Office | Orthopaedics at | Jorysebastian Donna | Other Specified | | 2008 | Visit | [address] | NADEGE Lopez [facility] | Pre-Operative | | | | [address] | [facility] | Examination (Primary | | | | Mailcode: PV430 | [address] | Dx) | | | | [facility] | [address] [place], | | | | | [place], [place] | [place] [address] | | | | | [address] | [phone] | | | | | [phone] | | | +--------+---------+ + + + [...] + + + | Blood Pressure | 132/78 | 02/21/2009 11:12 AM | | | | | PDT | | + + + + + | Pulse | 72 | 02/21/2009 11:12 AM | | | | | PDT | | + + + + + | Temperature | 37.2 C (98.9 F) | 02/21/2009 11:12 AM | | | | | PDT [...] + + + + | Weight | 90.3 kg (199 lb) | 02/21/2009 11:12 AM | | | | | PDT | | + + + + + | Height | 175.3 cm (5' 9") | 02/21/2009 11:12 AM | | | | | PDT | | + + + + + | Body Mass Index | 29.39 | 02/21/2009 11:12 AM | | | | | PDT | | + + + + + documented in this encounter Patient Instructions Patient Instructions Madiha Batista - 01/05/2009 8:42 AM PDTRegistration Locations (please check in at one of the following registration desks prior to surgery) For surgeries scheduled to take place on the hill at the [facility]: Surgeries scheduled in the [facility] (4 North): registration is located on the 4th floor of [facility] (Day Surgery). Surgeries scheduled in the [facility]: registration is located on the 9th floor. Surgeries scheduled in [facility]: registration is located on the 6th floor. Surgeries scheduled in the [facility]: registration is located i n the [facility] on the first floor. For surgeries scheduled to take place at the [facility]: registration is l [...] If you use specialized medical equipment at [facility], please check with your provider before bringing [...] Safety, Understanding Advance Directives, and Smoking Cessation Brochure.Radha stration Locations (please check in at one of the following registration desks prior to surg eduardo) For surgeries scheduled to take place on the hill at the [facility]: Surgeries scheduled in the [facility] ( North): registration is located on the 4th floor of [facility] (Day Surgery). Surgeries scheduled in the [facility]: registration is located on the 9th floor. Surgeries scheduled in [facility]: registration is located on the 6th floor. Surgeries scheduled in the [facility]: registration is located i n the [facility] on the first floor. For surgeries scheduled to take place at the [facility]: registration is l ocated [...] If you use specialized medical equipment at [facility], please check with your provider before bringing [...] and Smoking Cessation Brochure.Elec tronically signed by NADEGE Lr at 02/21/2009 11:42 AM PDT documented in this encounter Progress Notes Donna Clancy PA - 02/21/2009 11:42 AM PDT Pre-Procedure History and Physical Date of Admission: 02/22/09 HISTORY: Patient has a mass on her left scapula. It is very painful with shoulder movement . Her left fingers often go numb, and may start at the elbow. It has been painful for abou t 1 year. No history of bone tumors or lesions in the past. Had a lumpectomy for a benign mass in her left breast 2001. CURRENT PROBLEM LIST: Patient Active Problem List Diagnoses Date Noted Anal or Rectal Pain [569.42] 10/05/2008 Muscle Strain hips [848.9D] 08/22/2008 Neck Pain [723.1B] 08/22/2008 Radicular Pain in Left Arm [729.2DH] 08/22/2008 S/P Gastric Bypass Surgery November 22, 2003 [V45.86N] 07/25/2008 Fibromyalgia [729.1AV] 07/25/2008 Overview Note: Craniocervical junction appears stenotic in cervical extension. Chronic Bilateral Shoulder Pain [719.41AB] 07/24/2008 Overview Note: Left: Calcific tendinitis of the supraspinatus tendon. Right: Normal Coccydynia [724.79C] 07/24/2008 Spinal Fusion Lumbar spine [V45.4J] 06/21/2008 Overview Note: Surgery 05/15/08 Dr Ricky Garnett [place] JEY karlos to get operative reports Osteopenia [733.90X] 08/24/2007 LBP (Low Back Pain) [724.2AF] 03/31/2007 Encounter for Long-Term (Current) Use of Opioids [V58.69] 01/11/2007 Hypothyroidism [244.9AQ] 11/11/2006 Major Depressive Disorder, Recurrent Episode, Moderate [296.32] 07/31/2006 Adjustment Disorder with Anxiety [309.24] 07/31/2006 Iron Deficiency [275.0C] 03/09/2006 Metabolic syndrome X 250.80 [250.80] Essential hypertension 401.9 [401.9] Asthma 493.9 [493.9] Impaired glucose tolerance 790.2 [790.2] Fibromyalgia syndrome 729.1 [729.1] Overview Note: <PROVIDER>DAVIDE LIZARRAGA Past Medical History Diagnosis Date Chronic Abdominal [...] 08/2007 right knee Hx lumbar fusion 05/2008 [id number] with bone spur removals Hx appendectomy Hx cholecystectomy Hx section Hx hysterectomy Gastric bypass Mayra Padgett wt 278 01/18 Paniculectomy MEDICATIONS: Current outpatient prescriptions Medication Sig Dispense Refill [...] 1 Tab by mouth once daily. 30 3 methocarbamol 750 mg Oral Tablet Take 1-2 Tabs by mouth three times daily. Multivitamin Oral Tablet 1 tab by mouth twice daily omeprazole magnesium (PRILOSEC OTC) 20 mg Oral Tablet, Delayed Release (E.C.) take 1 ta blet by mouth twice daily oxycodone CR 40 mg Oral Tablet Sustained Release 12 hr Take 40 mg by mouth two times da bijan. OXYCODONE HCL (OXYCONTIN OR) Take by mouth. 10 mg (2 tablets) every 6 hours POTASSIUM CHLORIDE SR 20 MEQ TAB, PARTICLES/CRYSTALS take 1 tablet (20meq) by oral rout e once daily with food promethazine 25 mg Oral Tablet 1 tab by mouth as needed risedronate (ACTONEL) 35 mg Oral Tablet tablet Take 1 Tab by mouth every seven days. 12 12 sucralfate (CARAFATE) 1 gram Oral Tablet Take 1 Tab by mouth before meals. 120 1 VITAMIN C 500 MG CHEWABLE TAB four times a day Allergies Allergen Reactions Keflex (Cephalexin) Sulfa (Sulfonamides) Codeine Penicillins Clindamycin Cipro (Ciprofloxacin) Tramadol Morphine IM ( only in [facility]) made gut pain worse 08/27/06: Trial of oral MSIR caused leg swelling Clarithromycin Hives Mainly in the legs Hgtziil-bbotzwighp-xin-caff Balance problems Amitriptyline Grand mal seizures Fioricet W/codeine (Ceu-qfsaktkkoi-hlxruyqrqp-caf) FAMILY HISTORY: Family History Problem Relation Cancer Mother Heart Father Additional Family History Father Migraine Additional Family History Mother Migraine REVIEW OF SYSTEMS: Pt has extensive medical history as listed above. Denies any current ch est pain or shortness of breath. No recent colds or flus. Denies nausea/vomiting in the la st 2 weeks. 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 No history of seizures. N o chance she could be . Hysterectomy. PHYSICAL EXAM: VITALS: Visit Vitals Item Reading BP 132/78 Pulse 72 Temp(Src) 37.2 C (98.9 F) (Oral) Ht 1.753 m (5' 9") Wt 90.266 kg (199 lb) Physical exam deferred to anesthesia. PROVISIONAL DIAGNOSIS: left scapula lesions PLANNED COURSE OF ACTION: open biopsy, curettage and bone graft left scapula lesion PARQ: A PARQ session was held, additional questions with discussion were completed.Electron eduary signed by NADEGE Lr at 02/21/2009 11:42 AM PDTdocumented in this encount er Miscellaneous Notes Scan - Other, Faculty - 01/10/2009 1:31 PM PDT documented in t his encounter Plan of Treatment Not on filedocumented as of this encounter Results BASIC METABOLIC SET (NA, K, CL, TCO2, BUN, CR, GLU, CA) (02/21/2009 1:22 PM PDT) + + + + + + | Component | Value | Ref Range | Performed | Pathologist | | | | | At | Signature | + + + + + + | GLUCOSE, | 70 | 60 - 99 mg/dL | [facility] [...] + + + + | CREATININE | 0.55 (L) | 0.60 - 1.10 | [facility] [...] + + + + | POTASSIUM, | 4.6 | 3.4 - 5.0 | [facility] | | | PLASMA | | mmol/L | DEPARTMENT | | | (LAB) | | | OF | | | | | | PATHOLOGY | | + + + + + + | CHLORIDE, | 107 | 97 - 108 mmol/L | [facility] | | | PLASMA | | | DEPARTMENT | | | (LAB) | | | OF | | | | | | PATHOLOGY | | + + + + + + | CALCIUM, | 9.0 | 8.6 - 10.2 | [facility] | | | PLASMA | | mg/dL | DEPARTMENT | | | (LAB) | | | OF | | | | | | PATHOLOGY | | + + + + + + | TOTAL CO2, | 26 | 23 - 31 mmol/L | [facility] | | | PLASMA | | | DEPARTMENT | | | (LAB) | | | OF | | | | | | PATHOLOGY | | + + + + + + | EGFR | > 60 | >60 mL/min | [facility] | | | - | | | DEPARTMENT | | | FILIPINO | | | OF | | | | | | PATHOLOGY | | + + + + + + | EGFR NON | > 60Comment: GFR is | >60 mL/min | [facility] | | | -BRADEN | estimated using the MDRD | | DEPARTMENT | | | RICAN | equation recommended by | | OF | | | | theNational Kidney | | PATHOLOGY | | | | Disease Education | | | | | | Program. Estimated GFR | | | | | | Interpretive | | | | | | Information: <60 | | | | | | mL/min/1.73 sq m | | | | | | Chronic Kidney Disease | | | | | | <15 mL/min/1.73 sq m | | | | | | Kidney Failure | | | | | | Estimated GFR greater | | | | | | than 60mL/min/1.73 is of | | | | | | limited clinical Value. | | | | | | The MDRD equation is | | | | | | not valid in the | | | | | | following situations: - | | | | | | Patients under 18 years | | | | | | of age - Severe | | | | | | malnutrition or obesity | | | | | | - Vegetarian diet - | | | | | | Rapidly changing kidney | | | | | | function | | | | + + + + + + + + | Specimen | + + | Blood - Blood | + + + + + + + | Performing | Address | City/State/Zipcode | Phone Number | | Organization | | | | + + + + + | [facility] DEPARTMENT OF | [address] | [place] [address] | | | PATHOLOGY | [address] | | | + + + + + | [facility] OF | [address] | [place] [address] | | | PATHOLOGY | [address] | | | + + + + + CBC ONLY (02/21/2009 1:22 PM PDT) + +-------+ + + + [...] + + + | RED CELL | 4.30 | 4.00 - 5.20 | [facility] | | | COUNT | | M/cu mm | DEPARTMENT | | | | | | OF | | | | | | PATHOLOGY | | + +-------+ + + + | HEMOGLOBIN | 13.7 | 12.0 - 16.0 | [facility] | | | | | g/dL | DEPARTMENT | | | | | | OF | | | | | | PATHOLOGY | | + +-------+ + + + | HEMATOCRIT | 40.9 | 36.0 - 46.0 % | [facility] | | | | | | DEPARTMENT | | | | | | OF | | | | | | PATHOLOGY | | + +-------+ + + + | MCV | 95.2 | 80.0 - 96.0 fL | [facility] [...] +-------+ + + + | PLATELET | 219 | 150 - 400 K/cu | [facility] [...] + + + | [facility] | [address] | [place] [address] | | | PATHOLOGY | [address] | | | + + + + + | [facility] | [address] | [place] [address] | | | PATHOLOGY | [address] | | | + + + + + documented in this encounter Visit Diagnoses + + | Diagnosis | + + | Other specified pre-operative examination - Primary | + + documented in this encounter
--- OUTSIDE RECORDS SUMMARY | ~2020-02-29 | XMS | Encounter Summary ---
Demographics + + + | Address | [address] | | | [place] [address] | + + + | Home Phone [...] Team Providers + +------+ + | Care Art Teacher Name | Role | Phone | + +------+ + | Petrona Thapa | PCP | | | MD | | | + +------+ + Reason for Visit +--------+--------+ + | Reason | Onset | Comments | | | Date | | +--------+--------+ + | Pain | 02/02/ | | | | 2018 | | +--------+--------+ + Encounter Details +--------+ + + + + | Date | Type | Department | Care Team | Description | +--------+ + + + + | 02/02/ | Telephone | [facility] | Alanis, | Pain | | 2018 | | MEDICINE [address] | MD Petrona | | | | | [place], | [address] | | | | | [place] [address] | [place] [address] | | | | | [phone] | [phone] | | | | | | | [...] Telephone Encounter - Maggie Montoya LPN - 02/02/2019 10:02 AM PDTPatient states has this p ain in mid back off/on for months, no complaints of chest pain, shortness of breath, neck/ja w pain noted, does not feel it is cardiac related, feels like more of a disc in her back, la st CT thoracic spine done on 12/11/18 did not show ruptured disc or protrusion. Offered appt, patient declined at this time. Advised to seek medical attention at the ED for any worsenin g symptoms, otherwise can try conservative measures, ie.. alternating Heat / Ice for 20 min off/on elephone Ayla Eagle - 02/02/2019 8:58 AM PDTPatient called in stated she is having ext orin pain in her should blades and not sure what to do. She has been taking her pain medicat ion with no relieve. Please advise Electronically signed by Ayla Quezada at 9:00 AM PDTdocumented in this encounter Plan of Treatment +--------+---------+ + + + | Date | Type | Specialty | Care Team | Description | +--------+---------+ + + + | 05/17/ | Office | Internal Medicine | Alanis, | | | 2019 | Visit | | MD Petrona | | | | | | [address] | | | | | | [place] [address] | | | | | | [phone] | | | | | | | | +--------+---------+ + + + documented as of this encounter Visit Diagnoses Not on filedocumented in this encounter"
--- OUTSIDE RECORDS SUMMARY | ~2020-02-29 | XMS | Encounter Summary ---
Demographics + + + | Address | [address] | | | [place] [address] | + + + | Home Phone | | + + + | Preferred Language | Unknown | + + + | Marital Status | | + + + | Judaism Affiliation | 1001 | + + + | Race | White | + + + | Ethnic Group | Not or | + + + Author + + + | Author | [facility] | | | and [place] | + + + | Organization | [facility] | | | [...] Team Providers + +------+ + | Care Executive Search Consultant Name | Role | Phone | + +------+ + | Petrona Thapa | PCP | | | MD | | | + +------+ + Reason for Visit + +--------+ + | Reason | Onset | Comments | | | Date | | + +--------+ + | Toe Fracture | 04/04/ | | | | 2019 | | + +--------+ + Encounter Details +--------+ + + + + | Date | Type | Department | Care Team | Description | +--------+ + + + + | 04/04/ | Telephone | [facility] | Alanis, | Toe Fracture | | 2019 | | MEDICINE [address] | MD Petrona | | | | | [place], | [address] | | | | | [place] [address] | [place] [address] | | | | | [phone] | [phone] | | | | | | | [...] Telephone Encounter - Maggie Montoya LPN - 04/05/2019 11:26 AM PDTPatient notified of co mment elephone Petrona Richter MD - 04/05/2019 11:04 AM PDTIf her office administration does not see the necessity of getting an x-ray, I do not think it would be very helpful to get one.Electr onically signed by Petrona Thapa MD at 04/05/2019 11:06 AM PDTTelephone Susanna Sibley - 04/04/2019 3:08 PM PDTPatient called regarding her big toe, states she thinks its still broken and she can't seem to get an x-ray from the office administration. Please a dvise. documented in this e ncounter Plan of [...] | | | | | [place] [address] | | | | | | [phone] | | | | | | | | +--------+---------+ + + + documented as of this encounter Visit Diagnoses Not on filedocumented in this encounter"
--- OUTSIDE RECORDS SUMMARY | ~2020-02-29 | XMS | Encounter Summary ---
Demographics + + + | Address | [address] | | | [place] [address] | + + + | Home Phone [...] Team Providers + +------+ + | Care Applications Analyst Name | Role | Phone | + +------+ + | Pedrito Gutierrez MD | PCP | | + +------+ + Encounter Details +--------+---------+ + + + | Date | Type | Department | Care Team | Description | +--------+---------+ + + + | 09/09/ | Office | [facility] | Nathalia Arora | Neck Pain; | | 2006 | Visit | [facility] | [address] | Spondylosis with | | | | [place] [address] | [address] [place], | Myelopathy, Lumbar | | | | [address] [facility] for | [place] [address] | Region; Herniated | | | | [facility], | | Lumbar | | | | Building | | Intervertebral Disc | | | | Floor [place], [place] | | L4-5; Fibromyalgia | | | | [address] | | syndrome 729.1 | | | | [phone] | | | +--------+---------+ + + + [...] Note Date: December 02, 2006 Patient: Belinda Meehan, [id number], 1960 I agree with the proposed Physical Therapy Treatment Plan. Provider: DELFINA MOLINA ANP Nathalia Garrett - 007 4:49 PM PDT Physical Therapy Medicare Progress Note Date: 09/09/2006 Belinda Meehan [id number]. 1960 Start of Care: 06/23/2006 Referring Provider: [...] with walking and sitting; driving back to [place] [employer] 2 weeks ago, stopped at rest place and got out of care, falling onto B knees, getting better. Objective: Apparently patient's trip home 2 weeks ago was most likely related to her positi oning, ie B knees were hyperflexed for a prolonged time. She has not fallen since then, use s her lofstrand crutches consistently. Functionally, patient is walking 25 minutes at [place] at least daily and tolerating it we [...] to fac ilitate improving function. Treatment began: 0 Treatment ended: 1210 Nathalia Arora, Physical Therapist License #[id number] documented in this encoun ter Plan of Treatment + + +--------+ + + | Name | Type | Priori | Associated Diagnoses | Order Schedule | | | | ty | | | + + +--------+ + + | [place] MANUAL THER | Procedures | Routin | [...] | + + +--------+ + + | [place] THERAPEUTIC | Procedures | Routin | Neck [...]
--- OUTSIDE RECORDS SUMMARY | ~2020-02-29 | XMS | Encounter Summary ---
Demographics + + + | Address | [address] | | | [place] [address] | + + + | Home Phone [...] Providers + +------+ + | Care High Raw Sugar Boiler Name | Role | Phone | + +------+ + | Petrona Thapa | PCP | | | MD | | | + +------+ + Reason for Visit + +--------+ + | Reason | Onset | Comments | | | Date | | + +--------+ + | Headache | 04/08/ | | | | 2016 | | + +--------+ + Encounter Details +--------+ + + + + | Date | Type | Department | Care Team | Description | +--------+ + + + + | 04/08/ | Telephone | [facility] | Alanis, | Headache | | 2016 | | MEDICINE [address] | MD Petrona | | | | | [place], | [address] [facility] | | | | | [place] [address] | [place] [address] | | | | | [phone] | [phone] | | | | | | | [...] Telephone Encounter - Maggie Montoya LPN - 04/08/2017 4:44 PM PDTReceived call from slick jacobsen. States that she is having a really bad headache after bending down. States this is not he r usual migraine Headache. I instructed patient to go to an urgent care near her home (she [place] in [place], [place]) or go to the nearest Er. Patient was informed MD gone for the day.Maida ctronically signed by Maggie Montoya LPN at 04/08/2017 4:49 PM PDTdocumented in this encount er Plan of [...] | | | | | [place] [address] | | | | | | [phone] | | | | | | | | +--------+---------+ + + + documented as of this encounter Visit Diagnoses Not on filedocumented in this encounter"
--- OUTSIDE RECORDS SUMMARY | ~2020-02-29 | XMS | Encounter Summary ---
Demographics + + + | Address | [address] | | | [place] [address] | + + + | Home Phone [...] Team Providers + +------+ + | Care Practice Consultant Name | Role | Phone | [...] | Services | y | Vertigo | Emmy[place]t | EMD [address] | | | Required | | Procedures | i, | [address] | | | | | [address]/ [address] | Sulaiman[place]Russell | [address] [place] | | | | | PENDING | , [address] | [place] | | | | | | [address] | [address] Phone: | | | | | | [place], | [phone] | | | | | | [place] | Fax: | | | | | | [address] | [phone] | | | | | | Phone: | | | | | | | [phone] | | | | | | | Fax: | | | | | | | [phone] | | +--------+ + + + + + Reason for Visit + +--------+ + | Reason | Onset | Comments | | | Date | | + +--------+ + | Vertigo (Recurrent) | 11/18/ | | | | 2017 | | + +--------+ + Encounter Details +--------+ + + + + | Date | Type | Department | Care Team | Description | +--------+ + + + + | 11/18/ | Telephone | [facility] | Alanis, | Vertigo (Recurrent) | | 2017 | | MEDICINE [address] | MD Petrona | | | | | [place], | [address] [place] | | | | | [place] [address] | [place] [address] | | | | | [phone] | [phone] | | | | | | | [...] Telephone Encounter - Maggie Montoya LPN - 11/18/2017 3:44 PM PDTOk per MD. elephone Encounter - Maggie Montoya L PN - 11/18/2017 3:43 [address] PDTReferral submitted to Dr. Genao for vertigo, patient notified.El ectronically signed by Maggie Montoya LPN at 11/18/2017 3:44 PM PDTTelephone Encounter - Adriana Montalvo - 11/18/2017 11:58 AM PDTPatient called wanting to know if she needed a new referral to go see her specialist regarding her vertigo. Patient stated she is having issue s and it is making her feel sick and is wanting to get checked again and was not sure if she needed a new referral submitted to be able to see Dr. Genao for it. Patient would like a c all back to advise, [phone]. 11 :59 AM PDTdocumented in this encounter Plan of Treatment +--------+---------+ + + + | Date | Type | Specialty | Care Team | Description | +--------+---------+ + + + | 05/17/ | Office | Internal Medicine | Alanis, | | | 2019 | Visit | | MD Petrona | | | | | | [address] | | | | | | [place] [address] | | | | | | [phone] | | | | | | | | +--------+---------+ + + + + + +--------+ + + | Name | Type | Priori | Associated Diagnoses | Order Schedule | | | | ty | | | + + +--------+ + + | * [facility] [place] | Outpatient | Routin | Vertigo | Ordered: 11/18/2017 | | Otolaryngology - AMB | Referral | e | | | | Referral | | | | | + + +--------+ + + documented as of this encounter Visit Diagnoses + + | Diagnosis | + + | Dizziness and giddiness - Primary | + + | Vertigo Dizziness and giddiness | + + documented in this encounter"
--- OUTSIDE RECORDS SUMMARY | ~2020-02-29 | XMS | Encounter Summary ---
[...] Team Providers + +------+ + | Care Activity Therapy Specialist Name | Role | Phone | + +------+ + PCP | Unavailable | + +------+ + Encounter Details +--------+ + + + + | Date | Type | Department | Care Team | Description | +--------+ + + + + | 12/10/ | Office | | Note, Outpatient | [...] documented as of this encounter Progress Notes Byron, Dough Mixer In - 01/12/2005 6:46 AM PDTClinic Date: 12/11/2003 Clinic: Ms. Meehan is doing well. She is about 2 to 3 weeks post laparoscopic gastric bypass. Her weight today is 295.8 pounds and blood pressure 120/86. Her hypertension has essentially resolved. She has no specific complaints. I will get a CBC, complete metabolic panel and see her in 2 months. Chris Padgett M.D. CD / HS [id number] / [id number] / [id number] / Tdocumented in this encounter Plan of Treatment Not on filedocumented as of this encounter Visit Diagnoses Not on filedocumented in this encounter"
--- OUTSIDE RECORDS SUMMARY | ~2020-02-29 | XMS | Encounter Summary ---
Demographics + + + | Address | [address] | | | [place] [address] | + + + | Home Phone [...] Providers + +------+ + | Care Visual Effects Editor Name | Role | Phone | + +------+ + | Petrona Thapa | PCP | | | MD | | | + +------+ + Reason for Visit + +--------+ + | Reason | Onset | Comments | | | Date | | + +--------+ + | Medication Refill | 06/25/ | | | | 2018 | | + +--------+ + Encounter Details +--------+--------+ + + + | Date | Type | Department | Care Team | Description | +--------+--------+ + + + | 06/25/ | Refill | [facility] | Alanis, | Medication Refill | | 2018 | | [facility] [address] | MD Petrona | | | | | [place], | [address] [place] | | | | | [place] [address] | [place] [address] | | | | | [phone] | [phone] | | | | | | | [...] | | | | | [place] [address] | | | | | | [phone] | | | | | | | | +--------+---------+ + + + documented as of this encounter Visit Diagnoses + + | Diagnosis | + + | Nausea - Primary Nausea alone | + + documented in this encounter"
--- OUTSIDE RECORDS SUMMARY | ~2020-02-29 | XMS | Encounter Summary ---
Demographics + + + | Address | [address] | | | [place] [address] | + + + | Home Phone [...] Team Providers + +------+ + | Care Drill Grinder Name | Role | Phone | + [...] | | | | y, acute | Petrona | [address] | | | | | Acute | , MD [address] | | | | | midline low | [address] | [place], [place] | | | | | back pain | [place], | [address] | | | | | with | [place] | Phone: | | | | | bilateral | [address] | [phone] | | | | | sciatica | Phone: | Fax: | | | | | Procedures | [phone] | [phone] | | | | | MRI Lumbar | Fax: | | | | | | Spine wo | [phone] | | | | | | Contrast [...] + + | 05/17/ | Office | [facility] | Emmy-Tajti, | Lumbar | | 2018 | Visit | MEDICINE [address] | MD Petrona | radiculopathy, acute | | | | [address]VE [place], | [address] [facility] | (Primary Dx); Acute | | | | [place] [address] | [place] [address] | midline low back | | | | [phone] | [phone] | pain with bilateral | | | [...] insufficiency Coccydynia COPD (chronic obstructive pulmonary disease) ([facility]) Depression Diarrhea Dumping syndrome Fall at home Fatigue fracture of vertebra Fibromyalgia Full dentures GERD (gastroesophageal reflux disease) Glaucoma Hyperparathyroidism ([facility]) Hypothyroidism IBS (irritable bowel syndrome) Idiopathic scoliosis Leg edema Low back pain Lumbar postlaminectomy syndrome Lumbar radiculopathy primarily right 01/04/2015 Meniere syndrome Migraine with aura Migraines Muscle cramping Muscle spasm Myalgia Nonalcoholic hepatosteatosis Obesity Opioid dependence ([facility]) Orthostatic hypotension OLIVER (obstructive sleep apnea) Osteoarthritis, generalized Osteopenia Osteoporosis Peripheral neuropathy Rheumatoid arthritis ([facility]) Right arm pain 01/04/2015 RLS (restless legs syndrome) S/P lumbar fusion 01/04/2015 Scoliosis Sleep apnea Spondylosis with myelopathy, lumbar region Stroke ([facility]) Syncope Tremor Type II or unspecified [...] Procedure: COLONOSCOPY; Surgeon: Luther Brito MD; Location: [facility] MEDICAL PROCEDURE UNIT DILATION AND CURETTAGE OF UTERUS ELBOW SURGERY FINGER TRIGGER RELEASE 2002 FINGER TRIGGER RELEASE 2009 GASTRIC BYPASS SURGERY 2004 HYSTERECTOMY 05/14/1980 JOINT REPLACEMENT Bilateral 2007 2008 KNEE ARTHROSCOPY 2005 LAPAROSCOPY 01/27/2015 LAPAROTOMY 2008 ROTATOR CUFF REPAIR 2005 SPINE SURGERY TONSILLECTOMY 1964 UPPER GASTROINTESTINAL ENDOSCOPY N/A 12/18/2017 Procedure: EGD; Surgeon: Luther Brito MD; Location: [facility] MEDICAL PROCEDURE UNIT CURRENT MEDICATIONS Current [...] (See Comments) Confused and questionable for seizures Nqiodahmnj-Xzuc-Unzhcmsp Hives and Rash Cephalexin Hives Ciprofloxacin Hives [...] Note: Parts of this documentwere created using [employer] speech recognition software. As a r esult, [...] | | | | | [place] [address] | | | | | | [phone] | | | | | | | [...] | | | | First dose on [facility] 10/15/17 at 1215 | | | [...]
--- OUTSIDE RECORDS SUMMARY | ~2020-02-29 | XMS | Encounter Summary ---
Demographics + + + | Address | [address] | | | [place] [address] | + + + | Home Phone [...] Team Providers + +------+ + | Care Collar Shaper Operator Name | Role | Phone | + +------+ + | Perdito Gutierrez MD | PCP | | + +------+ + Reason for Visit + +--------+ + | Reason | Onset | Comments | | | Date | | + +--------+ + | Referral Needed | 04/05/ | | | | 2007 | | + +--------+ + Encounter Details [...] | | | [facility] | [place], [place] | | | | | [address] | [address] | | | | | [address] | [phone] | | | | | [facility] | | | | | | Physician[facility] | | | | | | [facility] | | | | | | [place] [address] | | | | | | [phone] | | | +--------+ + + + [...] encounter Miscellaneous Notes Telephone Encounter - Lisa Mccarthy - 04/05/2008 4:26 PM PDTSpoke with pt and advised he r to have neurology make the referral. They did this and pt has an appt in June with Dr. Evaristo Nichols. Pt states she was not told about dc'ing Fioricet and I encouraged her to c all her pcp since he was cc'd the chart. She will do this. She had a blackout episode this past weekend that she ended up having to go to the ER for. She will have chart notes faxed to us for our records. e lephone Encounter - Ami Barton - 04/05/2008 12:27 PM PDTPatient called and said that sh e is going to need a referral to a Migraine specialist as Neurology said they do not treat f or Migraines. The names and numbers are as follows: Dr. Koby García:[phone] Dr. Adriana Sweet:[phone] fax:[phone] Dr. Evaristo Nichols:[phone] I am sorry I could only get one fax number. You can reach patient at [phone] and if not there then call [phone] documented in this encoun ter Plan of Treatment Not on filedocumented as of this encounter Visit Diagnoses Not on filedocumented in this encounter"
--- OUTSIDE RECORDS SUMMARY | ~2020-02-29 | XMS | Encounter Summary ---
Demographics + + + | Address | [address] | | | [place] [address] | + + + | Home Phone [...] Team Providers + +------+ + | Care Makeup Artistry Instructor Name | Role | Phone | + +------+ + | Pedrito Gutierrez MD | PCP | | + +------+ + Reason for Visit + +--------+ + | Reason | Onset | Comments | | | Date | | + +--------+ + | Referral Needed | 01/24/ | Referral to Urologist | | | 2007 | | + +--------+ + Encounter Details +--------+ + + + + | Date | Type | Department | Care Team | Description | +--------+ + + + + | 01/24/ | Telephone | [facility] | Chris Padgett, | Referral Needed | | 2007 | | Center [address] | [address] | (Referral to | | | | Bethanie Mailcode: [id number] | [address] | Urologist) | | | | [facility] | [place], [place] | | | | | and [place], | [address] | | | | | [facility] | [phone] | | | | | Floor [place], [place] | | | | | | [address] | | | | | | [phone] | | | +--------+ + + + [...] Miscellaneous Notes Telephone Encounter - Kenisha Melton - 01/25/2008 5:17 PM PDTPt. Is calling for two manisha sons. One is that Dr. Gutierrez needs to be called to be notified that we are done prescribin g narcotics for her postop pain. He can now start to prescribe her pain medications as need ed. 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 She will call me back with test results. elephone Encounter - Adriana Macedo - 01/25/2008 7:57 AM PDTBr moise Meehan calling to get referral to Urologist due to urine incontinence and some disc harge. Patient would like to be referred to a Urologist at [facility]. She can be reached at: [phone]. Pain Scale: na Recent Surgery or Procedure: yes - 12/27/07 Pharmacy: Pharmacy Preferences: [address] [place] [address] 9AM-9PM MON-FRI / 9AM-7PM SAT / 10AM-6PM SUN documented in this enc ounter Plan of Treatment Not on filedocumented as of this encounter Visit Diagnoses Not on filedocumented in this encounter"
--- OUTSIDE RECORDS SUMMARY | ~2020-02-29 | XMS | Encounter Summary ---
Demographics + + + | Address | [address] | | | [place] [address] | + + + | Home Phone [...] Author + + + | Author | [facility] | + + + | Organization | [facility] | + + + | Address | [...] Providers + +------+ + | Care Transition Assistant Name | Role | Phone | [...] | | | | | hemorrhoid | [place], [place] | [address] [facility] | | | | | Rectal pain | [address] | [facility] | | | | | Procedures | | [address] [place], | | | | | CONSULT TO | | [place] | | | | | [place] | | [address] | | | | | SURGERY | | Phone: | | | | | | | [phone] | | | | | | | Fax: | | | | | | | [phone] | +--------+--------+ + + + + Encounter Details +--------+ + + + + | Date | Type | Department | Care Team | Description | +--------+ + + + + | 08/10/ | Lead Front End Developer | [facility] | Nuris Cardenas, ANP | Internal Hemorrhoid; | | 2008 | | [place] [address] [address] | | Rectal Pain | | | | [address] | | | | | | Mailcode: [id number] | | | | | | [facility] | | | | | | [place], [place] | | | | | | [address] | | | | | | [phone] | | | +--------+ + + + [...]
--- OUTSIDE RECORDS SUMMARY | ~2020-02-29 | XMS | Encounter Summary ---
Demographics + + + | Address | [address] | | | [place] [address] | + + + | Home Phone [...] Team Providers + +------+ + | Care Trencher Driver Name | Role | Phone | + +------+ + | Petrona Thapa | PCP | | | MD | | | + +------+ + Reason for Visit + +--------+ + | Reason | Onset | Comments | | | Date | | + +--------+ + | Phone Attempt | 09/09/ | | | | 2018 | | + +--------+ + Encounter Details +--------+ + + + + | Date | Type | Department | Care Team | Description | +--------+ + + + + | 09/09/ | Telephone | [facility] | Alanis, | Phone Attempt | | 2018 | | [address] | MD Petrona | | | | | [place], | [address] [place] [address] [place] | | | | | [place] [address] | [place] [address] | | | | | [phone] | | | | | | | [...] Telephone Encounter - Maggie Montoya LPN - 09/09/2018 9:58 AM PDTInformed patient that it was not me who called, patient states that it may have been an old message? Has a follow up appt on 09/15/18 elephone Encounter - Juliane Elena - 09/09/2018 9:29 AM PDTPatient called stating "I missed call mery Serrano" was called on cell phone asked to return call to home phone please advise.Electro nically signed by Juliane Elena at 09/09/2018 9:35 AM PDTdocumented in this encounter Plan of [...] | | | | | [place] [address] | | | | | | [phone] | | | | | | | | +--------+---------+ + + + documented as of this encounter Visit Diagnoses Not on filedocumented in this encounter
--- OUTSIDE RECORDS SUMMARY | ~2020-02-29 | XMS | Encounter Summary ---
Demographics + + + | Address | [address] | | | [place] [address] | + + + | Home Phone [...] Team Providers + +------+ + | Care Freight Hustler Name | Role | Phone | + +------+ + | Petrona Thapa | PCP | | | MD | | | + +------+ + Reason for Visit + + + | Reason | Comments | + + + | Follow-up | 3 month follow up | + + + Encounter Details +--------+---------+ + + + | Date | Type | Department | Care Team | Description | +--------+---------+ + + + | 11/14/ | Office | [facility] | Alanis, | Situational | | 2020 | Visit | MEDICINE [address] [place] [address] | MD Petrona | depression (Primary | | | | [place], | [address] [place] [address] | Dx); B12 deficiency; | | | | [place] [id number] | [place] [address] | Chronic diarrhea; | | | | [phone] | [phone] | History of Zoe-en-Y | | | | | | gastric bypass; Toe | | | | | | pain, chronic, left | +--------+---------+ + + + Social [...] + + + | Blood Pressure | 84/56 | 11/15/2019 9:31 AM | | | | | PDT | | + + + + + | Pulse | 60 | 11/15/2019 9:31 AM | | | | | PDT | | + + + + + | Temperature | 36.8 C (98.2 F) | 11/15/2019 9:31 AM | | | | | PDT | | + + + + + | Respiratory Rate | 18 | 11/15/2019 9:31 AM | | | | | PDT | | + + + + + | Oxygen Saturation | 96% | 11/15/2019 9:31 AM | | | | | PDT | | + + + + + | Inhaled Oxygen | - | - | | | Concentration | | | | + + + + + | Weight | 94.1 kg (207 lb 7.3 | 11/15/2019 9:31 AM | | | | oz) | PDT | | + + + + + | Height | - | - | | + + + + + | Body Mass Index | 31.54 | 01/17/2019 9:53 AM | | | | | PDT | | + + + + + documented in this encounter Progress Notes Petrona Thapa MD - 11/15/2019 9:30 AM PDTFormatting of this note might be d ifferent from the original. CHIEF COMPLAINT Chief Complaint Patient presents with Follow-up 3 month follow up HPI Belinda Meehan is a 59 y.o. y/o female who presents today for several issues: She states her depression has been better with the spring and summertime coming and her danelle ng more active. She would still like to continue B12 supplementation after taking a break o f several months as her level was elevated last fall. She states it gives her energy and sh e is also status post bariatric surgery and she tends to become deficient if she does not vuong pplement. She also has history of chronic diarrhea and takes Lomotil, needs a refill. She is complaining of pain in her left big toe has history of trauma and fracture a number of years ago but nothing recent. She is interested in getting an x-ray to make sure there i s no new fracture. She has recently brought a new shoes that are helping to some extent. S he is also taking pain medications from different providers below. ASSESSMENT & PLAN 1. Situational depression -Continue current regimen. 2. B12 deficiency -Continue supplementation for now. 3. Chronic diarrhea 4. History of Zoe-en-Y gastric bypass - diphenoxylate-atropine (LOMOTIL) 2.5-0.025 mg per tablet; Take 1 tablet by mouth 6 times daily. Dispense: 180 tablet; Refill: 2 5. Toe pain, chronic, left - XR Toe Left 2 + Vw; Future REVIEW OF SYSTEMS Constitutional: No Weight Change, [...] No Numbness, No Headache. Psych: No Anxiety/Panic, No Depression. Heme/Lymph: No Bruising, No Bleeding. Endocrine: No Polyuria, No Polydipsia, No Temperature Intolerance. PHYSICAL EXAM VITAL SIGNS: BP (!) 84/56 | Pulse 60 | Temp 36.8 C (98.2 F) (Temporal) | Resp 18 | Wt 94.1 kg (207 lb 7.3 oz) | LMP (LMP Unknown) | SpO2 96% | BMI 31.54 kg/m Constitutional: Well developed, No acute distress, Pleasant female. HENT: Normocephalic, Atraumatic, Bilateral external ears normal, Oropharynx with no erythma , No oral exudates, Nose normal. Cardiovascular: Regular rate & rhythm, No murmurs, No rubs, No gallops. No lower extremitie s edema. Thorax & Lungs: Normal chest, No respiratory distress, No crackles, wheezing, or rubs. Skin: Warm, No erythema, No rash. Musculoskeletal: Decreased range of motion in all major joints. No redness or swelling in h er joints. Neurologic: Alert & oriented x 3, No focal deficits noted. Psychiatric: Affect normal, Judgment normal, Mood normal. PAST MEDICAL HISTORY Past Medical History: Diagnosis Date Anemia Anxiety Arthritis Atypical chest pain Benign essential hypertension Blind left eye Cervical radiculopathy Chronic bilateral low back pain with left-sided sciatica Chronic low back pain 01/04/2015 Chronic neck pain 01/04/2015 Chronic pain Chronic venous insufficiency Coccydynia Common migraine COPD (chronic obstructive pulmonary disease) ([facility]) Depression Diarrhea Dumping syndrome Fall at home Fatigue fracture of vertebra Fibromyalgia Full dentures GERD (gastroesophageal reflux disease) Glaucoma Hyperparathyroidism ([facility]) Hypothyroidism IBS (irritable bowel syndrome) Idiopathic scoliosis Leg edema Low back pain Lumbar postlaminectomy syndrome Lumbar radiculopathy primarily right 01/04/2015 Meniere syndrome Migraine with aura Migraines Muscle cramping Muscle spasm Myalgia Nausea Nonalcoholic hepatosteatosis Obesity Opioid dependence ([facility]) Orthostatic hypotension OLIVER (obstructive sleep apnea) Osteoarthritis, generalized Osteopenia Osteoporosis Palpitations Peripheral neuropathy Rheumatoid arthritis ([facility]) Right arm pain 01/04/2015 RLS (restless legs syndrome) S/P lumbar fusion 01/04/2015 Scoliosis Sleep apnea Spondylosis with myelopathy, lumbar region Stroke ([facility]) Syncope Tremor Type II or unspecified type [...] Procedure: COLONOSCOPY; Surgeon: Luther Brito MD; Location: [facility] MEDICAL PROCEDURE UNIT DILATION AND CURETTAGE OF UTERUS ELBOW SURGERY FINGER TRIGGER RELEASE 2003 FINGER TRIGGER RELEASE 2010 GASTRIC BYPASS SURGERY 2004 HYSTERECTOMY 05/14/1980 JOINT REPLACEMENT Bilateral 2007 2008 KNEE ARTHROSCOPY 2005 LAPAROSCOPY 01/27/2015 LAPAROTOMY 2008 ROTATOR CUFF REPAIR 2005 SPINE SURGERY TONSILLECTOMY 1964 UPPER GASTROINTESTINAL ENDOSCOPY N/A 12/18/2017 Procedure: EGD; Surgeon: Luther Brito MD; Location: [facility] MEDICAL PROCEDURE UNIT CURRENT MEDICATIONS [...] three times a day 270 ca psule 4 HYDROcodone-acetaminophen (NORCO) 10-325 mg per tablet Take 1 tablet by mouth every 4 h ours as needed for Pain (not more then 6 tablets daily). Incontinence Supplies MISC As directed 100 each [...] every evening with food 450 tablet 3 SUMAtriptan (IMITREX) 100 mg tablet Take 1 [...] Days Morelia Thapa MD 1,000 mcg at 11/15/19 0950 ALLERGIES Allergies Allergen Reactions Ensure Diarrhea Food Diarrhea Lactose Kmscqlkkaz-Fvt-Geyg-Codeine Other (See Comments) Balance problems Codeine Sulfate Nausea Only Food Allergy Formula Diarrhea Ensure Levofloxacin Hives, Itching and Rash Butalbital Ropinirole Amitriptyline Hcl Other (See Comments) Confused and questionable for seizures Fesbkyiveb-Iorw-Gmgrcttd Rash duplicate Fjpxqnsevs-Eqst-Owswhtmj Hives and Rash Cephalexin Hives Ciprofloxacin Hives and Rash Clarithromycin Hives and Rash Clindamycin Hcl Hives and Rash Doxycycline Rash Duloxetine Other (See Comments) Migraines and nausea Ketorolac Hives Levofloxacin Hives and Rash Morphine Swelling Penicillins Hives and Rash Ropinirole Hcl Hives Sulfamethoxazole-Trimethoprim Hives and Rash Tramadol Hcl Nausea Only FOLLOW-UP Return in about 3 months (around 02/15/2020). Notes: 1. Parts of this documentwere created using [employer] speech recognition software. As a resu lt, there may be unintended word spelling errors. Every attempt was made to correct the di ctation. Teresa Adame Men'S Golf Coach - 11/15/2019 9:30 AM PDTFormatting of this note might be diff erent from the original. Administrations This Visit cyanocobalamin (VITAMIN B-12) injection 1,000 mcg Admin Date 11/15/2019 Action Given Dose 1000 mcg Route Intramuscular Administered By Teresa Mitchell Men'S Golf Coach do cumented in this encounter Plan of Treatment +--------+---------+ + + + | Date | Type | Specialty | Care Team | Description | +--------+---------+ + + + | 05/17/ | Office | Internal Medicine | Alanis, | | | 2019 | Visit | | MD Petrona | | | | | | [address] | | | | | | [place] [address] | | | | | | [phone] | | | | | | | | +--------+---------+ + + + documented as of this encounter Results XR Toe Left 2 + Vw (11/15/2019 [...] + | Tawanda, Rad Results In - 11/15/2019 11:20 AM PDT [...] | Diagnosis | + + | Situational depression - Primary | + + | B12 deficiency Other B-complex deficiencies | + + | Chronic diarrhea Diarrhea | + + | History of Zoe-en-Y gastric bypass Bariatric surgery status | + + | Toe pain, chronic, left | + + documented in this [...] | | | | First dose on [facility] 10/15/17 at 1215 | | | [...]
--- OUTSIDE RECORDS SUMMARY | ~2020-02-29 | XMS | Encounter Summary ---
Demographics + + + | Address | [address] | | | [place] [address] | + + + | Home Phone [...] Providers + +------+ + | Care Project Management Director Name | Role | Phone | [...] | 2006 | TRANSCRIPTI | [facility] [place] | [address] [facility] | QUESTIONNAIRE | | | ON | for Health and | [facility], [place] | | | | | Healing [address] | [address] | | | | | [facility] | [phone] | | | | | Health and Healing, | | | | | | [facility] | | | | | | [place], [place] | | | | | | [address] | | | | | | [phone] | | | +--------+ + + + [...]
--- OUTSIDE RECORDS SUMMARY | ~2020-02-29 | XMS | Encounter Summary ---
Demographics + + + | Address | [address] | | | [place] [address] | + + + | Home Phone [...] Team Providers + +------+ + | Care Wrap Knitting Machine Operator Name | Role | Phone | + +------+ + | Petrona Thapa | PCP | | | MD | | | + +------+ + Encounter Details +--------+ + + + + | Date | Type | Department | Care Team | Description | +--------+ + + + + | 07/16/ | Orders Only | [facility] | Alanis, | | | 2017 | | [facility] OP [facility]ION | MD Petrona | | | | | [address] | [address] [facility] | | | | | Cece Zhao MD | [place] [address] | | | | | [address] | [phone] | | | | | [phone] | | | +--------+ + + + [...] | | | | | [place] [address] | | | | | | [phone] | | | | | | | | +--------+---------+ + + + documented as of this encounter Visit Diagnoses Not on filedocumented in this encounter"
--- OUTSIDE RECORDS SUMMARY | ~2020-02-29 | XMS | Encounter Summary ---
Demographics + + + | Address | [address] | | | [place] [address] | + + + | Home Phone [...] Team Providers + +------+ + | Care Kennel Aide Name | Role | Phone | + +------+ + | Petrona Thapa | PCP | | | MD | | | + +------+ + Reason for Visit + +--------+ + | Reason | Onset | Comments | | | Date | | + +--------+ + | Medical Problem | 01/25/ | | | | 2017 | | + +--------+ + Encounter Details +--------+ + + + + | Date | Type | Department | Care Team | Description | +--------+ + + + + | 01/25/ | Telephone | [facility] | Alanis, | Medical Problem | | 2017 | | MEDICINE [address] | MD Petrona | | | | | [place], | [address] [facility] | | | | | [place] [address] | [place] [address] | | | | | [phone] | [phone] | | | | | | | [...] Telephone Encounter - Maggie Montoya LPN - 01/25/2018 11:37 AM PDTLeft message on patient's voicemail to seek medical attention at [facility] when back in town to have ear evaluated elephone Encounter - Juliane Pa - 01/25/2018 11:02 AM PDTInfection in left ear lobe, not wearing earrings. Ear lobe is red and swelling, and has pus coming out. Unsure what to do, patient is traveling a nd will be home later today, please advise.Electronically signed by Juliane Elena at 018 11:07 AM PDTdocumented in this encounter Plan of [...] | | | | | [place] [address] | | | | | | [phone] | | | | | | | | +--------+---------+ + + + documented as of this encounter Visit Diagnoses Not on filedocumented in this encounter"
--- OUTSIDE RECORDS SUMMARY | ~2020-02-29 | XMS | Encounter Summary ---
Demographics + + + | Address | [address] | | | [place] [address] | + + + | Home Phone [...] Providers + +------+ + | Care Control Equipment Electrician Name | Role | Phone | + [...] | | | | | [place], | | | | | | [place] [address] | | | +--------+ + + + [...] documented as of this encounter Procedure Notes Unknown - 12/09/2004 10:30 AM PDTAssociated Order(s): ANESTHESIA/SEDATION Anesthesia PostO p Report Patient: BELINDA MEEHAN J Med Rec: [id number] Sex F Bdate: 1960 Date/Time Data Entered Into [facility] Anesth PostOp Surgery Date [id number] 12/09/04 10:30 [id number] 11/23/03 10:57 Anesthesiologist SYEDA ANDREWS 12/09/04 10:30 KO MONTGOMERY 11/23/03 10:57 Resident Anesthesiolog LOPEZ REYNOLDS 12/09/04 10:30 Complications None/None Reported YES 11/23/03 12:25 Outcomes Information Satisfied with care YES 11/23/03 12:25 Info obtained from PATIENT 11/23/03 12:25 Outcome of Anesthesia NO CHANGE IN HOSPITAL COURSE 11/23/03 12:25 documented in this encounter Plan of Treatment [...] | Patient: BELINDA MEEHAN J Med Rec: [id number] Sex F Bdate: 1960 | | Date/Time Data | | Entered Into [facility] | | Anesth PostOp | | Surgery Date [id number] 12/09/04 10:30 | | [id number] 11/23/03 10:57 | | Anesthesiologist SYEDA ANDREWS [...]
--- OUTSIDE RECORDS SUMMARY | ~2020-02-29 | XMS | Encounter Summary ---
Demographics + + + | Address | [address] | | | [place] [address] | + + + | Home Phone [...] Team Providers + +------+ + | Care Sanitary Landfill Operator Name | Role | Phone | + +------+ + | Pedrito Gutierrez MD | PCP | | + +------+ + Reason for Visit + +--------+ + | Reason | Onset | Comments | | | Date | | + +--------+ + | Erroneous Encounter | 04/17/ | ERROR | | - Disregard | 2005 | | + +--------+ + Encounter Details +--------+ + + + + | Date | Type | Department | Care Team | Description | +--------+ + + + + | 03/19/ | Telephone | [facility] Division of | Carlos Arreola, | Erroneous Encounter | | 2005 | | Gastroenterology/Hep | [address] | - Disregard (ERROR) | | | | atology [address] | Naeem Mcrae | | | | | [address] | [place] [address] | | | | | Mailcode: PV310 | [phone] | | | | | [facility] | | | | | | [address] | | | | | | [place], [place] | | | | | | [address] | | | | | | [phone] | | | +--------+ + + + [...]
--- OUTSIDE RECORDS SUMMARY | ~2020-02-29 | XMS | Encounter Summary ---
Demographics + + + | Address | [address] | | | [place] [address] | + + + | Home Phone [...] Team Providers + +------+ + | Care Rabbet Operator Name | Role | Phone | + +------+ + PCP | Unavailable | + +------+ + Encounter Details +--------+ + + + + | Date | Type | Department | Care Team | Description | +--------+ + + + + | 12/21/ | Office | | Note, Outpatient | [...] as of this encounter Progress Notes Interface, Sales Representative Health Insurance In - 01/12/2005 6:32 AM PDTClinic Date: 12/22/2003 Clinic: Rheumatology Subjective: I am meeting Belinda Meehan for the first time. She has been a previous patient of Dr. Lozoya, and it was recommended that she return to clinic for some trigger point injections. She does not know all that much about fibromyalgia, so I would like to use this visit to discuss some of the other findings that we have found interesting at the [facility]. Belinda has recently had a gastric reduction, and this has been 1 month ago. She is healing quite well from it, and she has lost 50 pounds in 1 month. She is quite proud of this. Belinda does endorse symptoms of restless legs. She describes a creepy feeling like needles all over in her legs, and sometimes her arms. It is worse in the early evening and at night time and tends to keep her awake. She can have it also when she is sitting. She will sometimes have to get out of the car and walk, rub her legs, etc. This is quite consistent with restless legs. She has also had a history of migraines. At one point, she was treated with Inderal 160 mg b.i.d. She has no longer needed to use the Inderal since she started a supplement by Sheyla caal Attain. She has had a huge decrease in the number of her migraines. Past Medical History 1. Positive for hypercholesterolemia, hypertension, glucose intolerance, and obstructive sleep apnea. All of these should be helped by her gastric bypass. 2. She has had a heart attack, by history. 3. GERD. 4. Some depression. 5. Anxiety. 6. Hypoparathyroidism that I do not know what it was secondary to. 7. A migraine history. 8. Left ischemic optic neuropathy. This causes her to be unable to drive. 9. She has had carpal tunnel release. Current Medications 1. Diclofenac 75 mg b.i.d. 2. Axid 300 mg daily. 3. Calcium plus vitamin D twice daily. 4. Multivitamin once daily. 5. Flexeril 10 mg as needed. 6. Lexapro 10 mg daily. 7. Triamterene/hydrochlorothiazide 75/50 daily. 8. Actigall 250 mg b.i.d. 9. Ranitidine 150 mg b.i.d. 10. B12 1000 units a month. Allergies: PENICILLIN, KEFLEX, CODEINE, SULFA, CLINDAMYCIN, AND LATEX. Objective Vital Signs: Blood pressure is 125/74, pulse is 76 and regular, and weight is 293.2. Musculoskeletal: She does have tender myofascial trigger points in the upper trapezius muscles as well as the right and left upper gluteus edwardo muscles. Assessment and Plan 1. We went ahead and did trigger point injections using 0.5% procaine. PARQ was held, and consent was signed. A total of 12 mL of 0.5% procaine was used between the upper trapezius muscles and the bilateral upper gluteus edwardo areas. She demonstrated much less tenderness in these areas after the injection and a feeling of some relief. She knows that they might get more painful over the next 2 days and then should lessen up. I have shown her some stretches to do to keep the trigger points from reforming as quickly. Sometimes these injections last 3 months, and I hope that is so for her. I am hoping that it helps her improve her movement and ability to get up and down that seems to be quite aggravating for her. 2. I have been seeing great results treating restless legs with either Mirapex or Requip that tends to help their sleep disorder somewhat to get rid of the constant sensations that come from the legs that seem to keep the brain awake. I have had several patients whose pain has gone down markedly using this medication as I think their sleep improves, and the leg discomfort is actually premium representative of restless legs. I have given her a sample of Mirapex 0.25 mg to start with one-half of a pill and then increase to 1 or 2 pills to get rid of symptoms. I have given her the list of side effects. 3. She has never had an insulin-like growth factor 1 or a ferritin done. Sometimes, low ferritin levels can be a cause for restless legs as it does take iron to make dopamine. Insulin-like growth factor 1 reflects growth hormone release, and we know in these patients that growth hormone release is poor and sometimes can be helped by Mestinon. At the next visit, we will consider a trial of Mestinon if we need to do something else. There are a lot of gastrointestinal side effects after her surgery, and I want things to settle down before this trial. I will see her back in 3 to 4 months. Caitlin Rivera M.S., F.N.P. / [id number] / [id number] / [id number] / [id number] cc: Pedrito Gutierrez M.D. [address] [place] [id number] signed by Interface, Sales Representative Health Insurance In at 01/12/2005 6:3 2 AM PDTdocumented in this encounter Plan of Treatment Not on filedocumented as of this encounter Visit Diagnoses Not on filedocumented in this encounter"
--- OUTSIDE RECORDS SUMMARY | ~2020-02-29 | XMS | Encounter Summary ---
Demographics + + + | Address | [address] | | | [place] [address] | + + + | Home Phone [...] Team Providers + +------+ + | Care In Flight Refueling Manager Name | Role | Phone | [...] + + | 03/01/ | Telephone | [facility] | Alanis, | Other | | 2017 | | MEDICINE [address] | [place] | | | | | [place], | [address] [facility] | | | | | [place] [address] | [place] [address] | | | | | [phone] | [phone] | | | | | | | [...] | | | | | [place] [address] | | | | | | [phone] | | | | | | | | +--------+---------+ + + + documented as of this encounter Visit Diagnoses Not on filedocumented in this encounter"
--- OUTSIDE RECORDS SUMMARY | ~2020-02-29 | XMS | Encounter Summary ---
Demographics + + + | Address | [address] | | | [place] [address] | + + + | Home Phone [...] Team Providers + +------+ + | Care Switch Foreman Name | Role | Phone | + +------+ + | Pedrito Gutierrez MD | PCP | | + +------+ + Reason for Visit + +--------+ + | Reason | Onset | Comments | | | Date | | + +--------+ + | Evaluation AND/OR | 05/29/ | | | management - new | 2005 | | | patient | | | + +--------+ + Encounter Details +--------+---------+ + + + | Date | Type | Department | Care Team | Description | +--------+---------+ + + + | 05/29/ | Office | [facility] Center at [facility] | Lukasz Charles, | Major Depressive | | 2005 | Visit | [address] | PhD [address] | Disorder, Recurrent | | | | Center for Health | [place], [place] | Episode, Moderate | | | | and Healing, | [address] | ([facility]); Chronic | | | | | [phone] | Abdominal Pain; | | | | Floor [place], [place] | | Cervical Pain; | | | | [address] | | Headache; Adjustment | | | | [phone] | | Disorder with | | | [...] Notes Lukasz Charles - 05/29/2006 6:15 PM [facility] Psychological Wendy luation IDENTIFYING INFORMATION: Belinda Meehan is a 46 y.o. female Date of : 1960 Consulting Physician: LUKASZ CHARLES PHD Consultation Date: 05/29/2006 Referring Provider: Carlos Arreola Identifying Information: Belinda Meehan is a 46 y.o. female who lives in [place], [place] wi th her 2 sons. The patient was referred [...] disability benefits. 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 Marital History: , not currently in [...] and decreasing depression and anx iety. Diagnosis: Henrietta I: 1. (296.32) Major depressive disorder, recurrent, moderate. 2. (309.24) Adjustment disorder with anxiety. 3. (307.89) Chronic pain disorder associated with both psychological factors and a gene ral medical condition. Henrietta II: Deferred Henrietta III: abdominal pain, migraine headache, low back pain. Henrietta IV: low finances Henrietta V: GAF 50 Recommendations: 1. Psychological counseling to increase knowledge and use of cognitive and behavioral pain coping skills is recommended. The treatment should include relaxation training to improve c ontrol over physiologic responses to pain. Treatment should also focus on decreasing sympto ms of depression and increasing participation in social, recreational and leisure activities . Ms. 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 LUKASZ CHARLES PHD [facility] [address] [facility], [address] [place] [address] documented in this encount er Plan of Treatment + + +--------+ + + | Name | Type | Priori | Associated Diagnoses | Order Schedule | | | | ty | | | + + +--------+ + + | [facility] | Procedures | Routin | Major Depressive | Ordered: 05/29/2006 | | DIAGNOSTIC INTERVIEW | | e | Disorder, Recurrent | | | | | | Episode, Moderate | | | | | | ([facility]) Chronic | | | | | | [...]
--- OUTSIDE RECORDS SUMMARY | ~2020-02-29 | XMS | Encounter Summary ---
Demographics + + + | Address | [address] | | | [place] [address] | + + + | Home Phone | | + + + | Preferred Language | Unknown | + + + | Marital Status | | + + + | Scientology Affiliation | 1001 | + + + | Race | White | + + + | Ethnic Group | Not or | + + + Author + + + | Author | [facility] | | | and [place] | + + + | Organization | [facility] | | | [...] Team Providers + +------+ + | Care Meringuer Name | Role | Phone | + [...] + + | 05/30/ | Refill | [facility] | Alanis, | Medication Refill | | 2016 | | MEDICINE [address] | MD [place] | | | | | [place], | [address] [facility] | | | | | [place] [address] | [place] [address] | | | | | [phone] | [phone] | | | | | | | [...] | | | | | [place] [address] | | | | | | [phone] | | | | | | | | +--------+---------+ + + + documented as of this encounter Visit Diagnoses Not on filedocumented in this encounter"
--- OUTSIDE RECORDS SUMMARY | ~2020-02-29 | XMS | Encounter Summary ---
Demographics + + + | Address | [address] | | | [place] [address] | + + + | Home Phone [...] Team Providers + +------+ + | Care Olive Brine Tester Name | Role | Phone | + +------+ + | Petrona Thapa | PCP | | | MD | | | + +------+ + Reason for Visit + +--------+ + | Reason | Onset | Comments | | | Date | | + +--------+ + | ER Follow-up | 11/17/ | | | | 2019 | | + +--------+ + Encounter Details +--------+ + + + + | Date | Type | Department | Care Team | Description | +--------+ + + + + | 11/17/ | Telephone | [facility] | Alanis, | ER Follow-up | | 2019 | | MEDICINE [address] | MD [place] | | | | | [place], | [address] [place] | | | | | [place] [address] | [place] [address] | | | | | [phone] | [phone] | | | | | | | [...] this encounter Miscellaneous Notes Telephone Encounter - Adriana Cantor - 11/18/2019 8:32 AM PDTPatient called wanting to speak with the nurse. She stated she fell asleep on the toilet last night and fell and has not fallen in over two years. Her ankle was swelling and she could not walk so she called the ambulance and went to the ER last night and only had a slight sprain. She also stated t hat a medication was called in incorrectly, she is supposed to have gotten Loperamide but go t something else that she does not take but could not remember the name. Please call slick jacobsen at [phone]. docum ented in this encounter Plan of [...] | | | | | [place] [address] | | | | | | [phone] | | | | | | | | +--------+---------+ + + + documented as of this encounter Visit Diagnoses Not on filedocumented in this encounter"
--- OUTSIDE RECORDS SUMMARY | ~2020-02-29 | XMS | Encounter Summary ---
Demographics + + + | Address | [address] | | | [place] [address] | + + + | Home Phone [...] Team Providers + +------+ + | Care Corn Popper Name | Role | Phone | + +------+ + PCP | Unavailable | + +------+ + Encounter Details +--------+ + + + + | Date | Type | Department | Care Team | Description | +--------+ + + + + | 01/17/ | Office | [facility] | Clinic, [...] as of this encounter Progress Notes Interface, Candle Wrapper In - 02/19/2005 5:04 AM PDT [id number] GEOVANNI Barnes Clinic Date: 01/17/2005 Clinic: General Surgery Clinic Subjective: Ms. Meehan comes to clinic today with a complaint of chronic drainage from her right thigh incision. She is now a little over a month from her discharge status post paniculectomy from her bilateral inner thighs. She had some minimal serous drainage from her right thigh wound upon discharge and that has continued. It is from a pin-hole portion of her wound which appears erythematous. However, she had this cultured and it grew some Serratia marcescens for which she was treated with ciprofloxacin over the last 3 days. She reported having temperature as high as 102, and thus was contacted to come to this clinic. She arrives today with a temperature of 37.4 and complains of "infection" of her right leg. The patient describes an area midway down her incision which is very painful and knot-like, with no evidence of erythema and a small distal aspect of drainage which is clear and serous. She has no other complaints today. Assessment: The patient is seen with Dr. Dwaine Larson. She has a dwd-wsmj-wkbwi lesion at the distal aspect of her incision which is draining clear fluid consistent with lymph. Overall, her incisions appear well healed bilaterally with no evidence of erythema. She does have an area approximately 4 cm in diameter in her mid incision, which in the subcutaneous tissue feels indurated and knot-like. This is exquisitely tender to touch; however, it does not appear infected. Plan: The patient is informed that this is most likely a small lymphatic leak which will hopefully resolve over time with continued dressing changes. However, she is not at risk for acute evidence of cellulitis or necrotizing infection. She is agreeable to continue with the ciprofloxacin treatment although most likely this is a skin contaminant. In fact a culture was taken from the skin surface after the drainage was occurring. She agrees to see us again in the clinic in [address] Larson for followup evaluation of this lymphatic leak, and hopeful improvement and eventual closure. Devin German M.D. Dwaine Larson M.D. JOSE A / [id number] / [id number] / [id number] / [id number] Electronically signed by Dwaine Larson 02-18-2005 09:15:31 AM documented i n this encounter Plan of Treatment Not on filedocumented as of this encounter Visit Diagnoses Not on filedocumented in this encounter
--- OUTSIDE RECORDS SUMMARY | ~2020-02-29 | XMS | Encounter Summary ---
Demographics + + + | Address | [address] | | | [place] [address] | + + + | Home Phone [...] Providers + +------+ + | Care Business Objects Consultant Name | Role | Phone | + +------+ + | Sulaiman Carrera MD | PCP | | + +------+ + Reason for Visit + +--------+ + | Reason | Onset | Comments | | | Date | | + +--------+ + | Follow-up visit | 08/09/ | | | | 2013 | | + +--------+ + Consultation (Routine) +--------+--------+ + + + + | Status | Reason | Specialty | Diagnoses / | Referred By | Referred To | | | | | Procedures | Contact | Contact | +--------+--------+ + + + + | Closed | | Psychology / | Diagnoses | [place], | Alin, | | | | Pain | Myalgia and | Rosi Armijo ANP | Lukasz Rhodes, PhD | | | | Management | myositis, | [address] | | | | unspecified | [address] | Ave | | | | | Encounter | [place] | [place] | | | | | for | [address] | [address] | | | | | long-term | | Phone: | | | | | (current) | | [phone] | | | | | use of other | | Fax: | | | | | medications | | [phone] | | | | | LBP (low [...] 08/09/ | Office | Pain Center at [facility] | Lukasz Charles, | Major depressive | | 2013 | Visit | [address] | PhD [address] | disorder, recurrent | | | | Center [facility] | [place], [place] | episode, moderate | | | | and Healing, | [address] | ([facility]) (Primary Dx); | | | | | [phone] | LBP (low back pain); | | | | Floor [place], [place] | | Fibromyalgia; | | | | [address] | | Adjustment disorder | | | | [phone] | | with anxiety | +--------+---------+ + + + Social History [...] gives her a lot of motivation. Diagnosis: Huguenot I: 1. (296.32) Major depressive disorder, recurrent, moderate. 2. (309.24) Adjustment disorder with anxiety. Huguenot II: Deferred Huguenot III: abdominal pain, migraine headache, low back pain, fibromyalgia. Huguenot IV: low finances Huguenot V: GAF 55-60 Plan: return in 1 month. Check mood, pain, activity, stress management. Ask about any ch anges at home, taking care of her own self, sleeping. Continue cognitive/behavioral therapy . Total time spent with patient was approximately 45 minutes. LUKASZ CHARLES PHD [facility] [address] [place] [address] [facility], 4th [place] [address] documented in this en counter Plan of [...]
--- OUTSIDE RECORDS SUMMARY | ~2020-02-29 | XMS | Encounter Summary ---
Demographics + + + | Address | [address] | | | [place] [address] | + + + | Home Phone [...] Team Providers + +------+ + | Care Assurance Auditor Name | Role | Phone | + +------+ + | Pedrito Gutierrez MD | PCP | | + +------+ + Encounter Details +--------+ + + + + | Date | Type | Department | Care Team | Description | +--------+ + + + + | 11/22/ | Telephone | MARK Basilio | Miranda Lambert, | | | 2009 | | Pain Center at | ANP | | | | | [facility] | | | | | | [address] | | | | | | [place] [facility] | | | | | | and Healing, | | | | | | Building | | | | | | Floor [place], [place] | | | | | | [address] | | | | | | [phone] | | | +--------+ + + + [...] this encounter Miscellaneous Notes Telephone Encounter - Ignacoi Hernandez - 11/22/2009 9:46 AM PDTMs.Shefali continues to have prob lems with her pain and wants to know if Miranda would like to see her to make further recomme ndations to . [place] from [place] and wants to make sure that h er trip and visit to the [facility] could help in assisting her and her PCP with managing her chron ic pain. documented in this enco unter Plan of Treatment Not on filedocumented as of this encounter Visit Diagnoses Not on filedocumented in this encounter"
--- OUTSIDE RECORDS SUMMARY | ~2020-02-29 | XMS | Encounter Summary ---
Demographics + + + | Address | [address] | | | [place] [address] | + + + | Home Phone [...] Team Providers + +------+ + | Care Diathermy Equipment Repairer Name | Role | Phone | + +------+ + | Pedrito Gutierrez MD | PCP | | + +------+ + Encounter Details +--------+---------+ + + + | Date | Type | Department | Care Team | Description | +--------+---------+ + + + | 11/24/ | Office | Preoperative | 2, [facility] Second Shift Supervisor [address] | Other Specified | | 2007 | Visit | Medicine Clinic at | [facility] [address] [facility] [address] | Pre-Operative | | | | [facility] 4th Floor [address] | [place] [address] | Examination; | | | | [address] | | Hemorrhagic Disorder | | | | Mailcode: CH4S | | due to Intrinsic | | | | [facility] | | Circulating | | | | and Healing, | | Anticoagulants | | | | Building 1[address]4th [facility] | | | | | | [place], [place] | | | | | | [address] | | | | | | [phone] | | | +--------+---------+ + + + [...] + + | [facility] DEPARTMENT OF | [address] | [place] [address] | | | PATHOLOGY | [address] | | | + + + + + | [facility] | [address] | [place] [address] | | | PATHOLOGY | [address] [...] DEPARTMENT OF | [address] | [place] [address] | | | PATHOLOGY | [address] | | | + + + + + | [facility] DEPARTMENT OF | [address] | [place] [address] | | | PATHOLOGY | [address] [...] | + + + + + | [facility] | [address] | [place] [address] | | | PATHOLOGY | [address] | | | + + + + + | [facility] | [address] | [place] [address] | | | PATHOLOGY | [address] [...] Performed At | + + + | [id number] Estimated GFR > 60 mL/min/1.73 sq m if non- | [facility] | | [place] [id number] Estimated GFR > 60 mL/min/1.73 sq m if | DEPARTMENT OF | | [place] GFR is estimated using the MDRD equation [...] + + | [facility] DEPARTMENT | [address] | [place] [address] | | | PATHOLOGY | [address] | | | + + + + + | [facility] OF | [address] | [place] [address] | | | PATHOLOGY | [address] [...] + + | Ordered by an | [facility] DEPT OF | | unspecified provider. Please click on view image for the detailed | CARDIOLOGY | | interpretation from [employer] results. | | |results. | | | | | + + + + + + + + | Performing | Address | City/State/Zipcode | Phone Number | | Organization | | | | + + + + + | [facility] DEPT OF | [address] | [place], [place] | | | CARDIOLOGY | [address] | [address] | | + + + + + | [facility] DEPT OF | [address] | [place], [place] | | | CARDIOLOGY | [address] | [address] | | + + + + + documented in this encounter Visit Diagnoses + + | Diagnosis | + + | Other specified pre-operative examination | + + | Hemorrhagic disorder due to intrinsic circulating anticoagulants | + + documented in this encounter
--- OUTSIDE RECORDS SUMMARY | ~2020-02-29 | XMS | Encounter Summary ---
Demographics + + + | Address | [address] | | | [place] [address] | + + + | Home Phone [...] Team Providers + +------+ + | Care Sample Maker Hand Name | Role | Phone | [...] Specialty | Orthopedic | Diagnoses | | [place], | | | Services | Surgery | Acute pain | Emmy-Tajt | Ruben Leonardo MD | | | Required | | of right | i, | [address] | | | | | shoulder | Sulaiman-Gily | [place] | | | | | Tear of MD Anika [address] | [place], [place] | | | | | right | [address] | [address] Phone: | | | | | supraspinatu | [place], | [phone] | | | | | s tendon, | [place] | Fax: | | | | | initial | [address] | [phone] | | | | | encounter | Phone: | | | | | | | [phone] | | | | | | | Fax: | | | | | | | [phone] | | +--------+ + + + + [...] Acute pain | Emmy-Tajt | [address] | | | | | of right | i, | [place], | | | | | shoulder | John | [place] | | | | | Procedures | , MD [address] | [address] | | | | | MRI Shoulder | [address] | Phone: | | | | | Right wo | [place], | [phone] | | | | | Contrast | [place] | Fax: | | | | | | [address] | [phone] | | | | | | Phone: | | | | | | | [phone] | | | | | | | Fax: | | | | | | | [phone] | | +--------+--------+ + + + + [...] + + | 01/15/ | Office | [facility] | Alanis, | Acute pain of right | | 2017 | Visit | MEDICINE [address] | MD John | shoulder (Primary | | | | [address] [place], | [address] [place] | Dx); [place] | | | | [place] [address] | [place] [address] | diarrhea; Fatty | | | | [phone] | [phone] | liver; S/P bariatric | | | [...] + | Blood Pressure | 110/60 | 01/15/2018 10:56 AM | | | | | PDT | | + + + + + | Pulse | 59 | 01/15/2018 10:56 AM | | | | | PDT | | + + + + + | Temperature | 36.5 C (97.7 F) | 01/15/2018 10:56 AM | | | | | PDT | | + + + + + | Respiratory Rate | 16 | 01/15/2018 10:56 AM | | | | | PDT | | + + + + + | Oxygen Saturation | 96% | 01/15/2018 10:56 AM | | | | | PDT | | + + + + + | Inhaled Oxygen | - | - | | | Concentration | | | | + + + + + | Weight | 102 kg (224 lb 13.9 | 01/15/2018 10:56 AM | | | | oz) | PDT | | + + + + + | Height | - | - | | + + + + + | Body Mass Index | 34.19 | 12/30/2017 2:14 PM | | | | | PDT | | + + + + + documented in this encounter Progress Notes Maggie Montoya LPN - 01/15/2018 10:45 AM PDT Vitamin B12 1000mcg given IM right deltoidElectronically signed by Maggie Montoya LPN at 08/2017 12:15 PM John Johnston MD - 01/15/2018 10:45 AM PDTFormatting of t his note might be different from the original. CHIEF COMPLAINT Chief Complaint Patient presents with Follow-up 3 month Lab Results Injections Vitamin B12 Shoulder Pain Right shoulder blade. barely able to lift arm with out pain. 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 [...] apnea Spondylosis with myelopathy, lumbar region Stroke ([facility]) Syncope Tremor Type II or unspecified type [...] 2002 CARPAL TUNNEL RELEASE 2001 SECTION CHOLECYSTECTOMY 2003 COLONOSCOPY N/A 12/18/2017 Procedure: COLONOSCOPY; Surgeon: Luther Brito MD; Location: [facility] MEDICAL PROCEDURE UNIT DILATION AND CURETTAGE OF UTERUS ELBOW SURGERY FINGER TRIGGER RELEASE 2002 FINGER TRIGGER RELEASE 2010 GASTRIC BYPASS SURGERY 2004 HYSTERECTOMY 05/14/1980 JOINT REPLACEMENT Bilateral 2007,2008 KNEE ARTHROSCOPY 2005 LAPAROSCOPY 01/27/2015 LAPAROTOMY 2008 ROTATOR CUFF REPAIR 2005 SPINE SURGERY TONSILLECTOMY 1964 UPPER GASTROINTESTINAL ENDOSCOPY N/A 12/18/2017 Procedure: EGD; Surgeon: Luther Brito MD; Location: [facility] MEDICAL PROCEDURE UNIT CURRENT MEDICATIONS [...] mcg 1,000 mcg Intramuscular Q30 Days Cla caroldamaso-Russell Thapa MD 1,000 mcg at 12/10/17 1040 ALLERGIES Allergies Allergen Reactions Codeine Sulfate Nausea Only Levofloxacin Hives, Itching and Rash Amitriptyline Hcl Other (See Comments) Confused and questionable for seizures Exgtmvehid-Acom-Hzogjpmy Hives and Rash Cephalexin Hives Ciprofloxacin Hives [...] Note: Parts of this documentwere created using GlassUp speech recognition software. As a r esult, there may be unintended word spelling errors. Every attempt was made to correct the dictation. documente d in this encounter Miscellaneous Notes Addendum Note - John Thapa MD - 01/15/2018 10:45 AM PDT Addended by: JOHN HOPKINS on: 02/18/2018 10:49 Modules accepted: Orders docuindio barrera in this encounter Plan of Treatment +--------+---------+ + + + | Date | Type | Specialty | Care Team | Description | +--------+---------+ + + + | 05/17/ | Office | Internal Medicine | Alanis, | | | 2019 | Visit | | MD John | | | | | | [address] [place] | | | | | | [place] [address] | | | | | | [phone] | | | | | | | | +--------+---------+ + + + + + +--------+ + + | Name | Type | Priori | Associated Diagnoses | Order Schedule | | | | ty | | | + + +--------+ + + | * [facility] | Outpatient | Routin | Acute pain of | Expected: | | Orthopedic Surgery - | Referral | e | right shoulder Tear | 02/18/2018, Expires: | | AMB Referral | | | of right | 02/18/2019 | | | | | supraspinatus | | | | | | tendon, initial | | | | | | encounter | | + + +--------+ + + documented as of this encounter Results MRI Shoulder Right wo Contrast (02/17/2018 10:55 AM PDT) + + | Specimen | [...] irregularity. The glenohumeral chondral surfaces | | | appear to be preserved. Type II acromion is seen with mild | | | degeneration of the acromioclavicular joint with small inferior bony | | | spurring at the distal clavicle. Neurovascular structures:The | | | neurovascular structures have normal course and signal through the | | | shoulder girdle. Other findings: No soft tissue mass or abnormal | | | fluid collection. IMPRESSIONS: Lateral articular sided | | | supraspinatus tendon tear, approximately 75% thickness and measuring | | | up to 8 mm. Additional small intrasubstance insertional tear of the | | | supraspinatus tendon. Associated moderate tendinosis. Mild | | | infraspinatus, subscapularis, and long head biceps tendinosis. | | | Small posterior/superior labral tear. Chronic subcortical cystic | | | changes at the anterior humeral head. Mild AC joint hypertrophy | | | with small inferior bony spurring at the distal clavicle. | | | Dictated and Signed by: Romeo John MD Electronically signed: | | | 02/17/2018 2:43 PM | | + + + + + | Procedure Note | + + | Tawanda, Rad Results In - 02/17/2018 2:47 PM PDT | | TECHNIQUE: MRI of the [...] Chronic diarrhea Diarrhea | + + | Fatty liver Other chronic nonalcoholic liver disease | + + | S/P bariatric surgery Bariatric surgery status | + + | Chronic bilateral low back pain without sciatica | + + | Tear of right supraspinatus tendon, initial encounter | + + documented in this encounter"
--- OUTSIDE RECORDS SUMMARY | ~2020-02-29 | XMS | Encounter Summary ---
Demographics + + + | Address | [address] | | | [place] [address] | + + + | Home Phone [...] Providers + +------+ + | Care Supervisor Display Fabrication Name | Role | Phone | + [...] | | [facility] | [place], [place] | | | | | [address] | [address] | | | | | [address] | [phone] | | | | | Physician's | | | | | | Pavilion, 1st floor | | | | | | [place], [place] | | | | | | [address] | | | | | | [phone] | | | +--------+ + + + [...]
--- OUTSIDE RECORDS SUMMARY | ~2020-02-29 | XMS | Encounter Summary ---
Demographics + + + | Address | [address] | | | [place] [address] | + + + | Home Phone [...] Team Providers + +------+ + | Care Toy Assembly Supervisor Name | Role | Phone | [...] as of this encounter H&P Notes Interface, Concrete Puddler In - 11/19/2005 3:09 AM PDT Date [...] is referred by Zachary Gutierrez M.D. from [place], [place], with an address of [address] [place] [address], phone number: [phone], fax number: [phone]. Her primary care physician supports her referral for bariatric surgery, as well as Dr. William Meeks in the metabolic disorders clinic at [facility]. Dr. Meeks has followed the patient [...] since September 2001, with Dr. Tobias in [place]. The patient thinks her settings are at [...] release surgery in May 2003, both at [facility] in [place]. Allergies: PENICILLIN, CODEINE, KEFLEX, SULFA, CLINDAMYCIN, LATEX. [...] with sleep study with Dr. Tobias in [place] in September 2001, currently on CPAP nightly. [...] gastric bypass with Chris Padgett M.D. at [facility]. Her primary care physician as well as Dr. Meeks feel that the patient will have progressive weight gain and increased risks from her morbid obesity conditions without weight loss. She was unable to continue phentermine due to increased migraine headaches. The National [place] of [employer] states that 96% of all nonoperative therapy regimens to date have failed to control the medical comorbid problems and the morbid obesity disease. Ms. Meehan meets and exceeds the criteria set up by the NIH, the [place] Society for Bariatric [employer], and the [place] [employer]ocrin[employer], regarding surgical treatment of [...] is to obtain outpatient nutrition consult at [facility], psychology evaluation her home town with [...] the work up process. Melisa Lake/ja2 P [id number] FAX: Dr. Zachary Gutierrez: [phone] cc: Joanna Valdez MD [facility] [address] [facility] [place] [id number] signed by Interface, Concrete Puddler In at 11/19/2005 3:09 AM PDTdocumented in this encounter Plan of Treatment Not on filedocumented as of this encounter Visit Diagnoses Not on filedocumented in this encounter"
--- OUTSIDE RECORDS SUMMARY | ~2020-02-29 | XMS | Encounter Summary ---
Demographics + + + | Address | [address] | | | [place] [address] | + + + | Home Phone [...] Team Providers + +------+ + | Care Certified Physical Therapist Assistant Name | Role | Phone | [...] Thoracic or | [place], | [address] | | | | | lumbosacral | Carlos Armijo MD | [place], | | | | | neuritis or | [address] | [place] | | | | | | ST [place] | [address] | | | | | radiculitis, | [place], [place] | Phone: | | | | | unspecified | [address] | [phone] | | | | | Procedures | Phone: | Fax: | | | | | [place] INJECT | [phone] | [phone] | | | | | ANES/STEROID | Fax: | | | | | | FORAMEN | [phone] | | | | | | LUMBAR/SACRA | | | | | | | L W IMG | | | | | | | GUIDE ,1 | | | | | | | [place] | | | | | | | [...] + + + + | 01/19/ | Hospital | [facility] | Carlos Hsieh | Lumbar radiculopathy | | 2015 | Encounter | MED CTR XRAY [address] | TMD [address] | primarily right | | | | [place] | [facility] [place] | | | | | [place] [address] | [address] | | | | | [phone] | | | | | | | Salon CoordinatorKristyn | | | | | | qasim tripp | | +--------+ + + + [...] | | | | | | [address] | | | | | | [place] [address] | | | | | | [phone] | | | | | | | [...] radiculopathy ICD-9 Code 724.4 Belinda Basilio | [facility] | | Shefali presents to the fluoroscopy suite for [facility] | | fluoroscopically-guided bilateral L5-S1 transforaminal epidural [...] | + + + + + | [facility] | [address] | [place], [place] | [phone] | | [facility] | | [address] | | | - IMAGING | | [...] | | er | | Intra-articular, ONCE, Thu01/19/15 | | AM PDT | | | [...] | Other | | mL, Intradermal, ONCE, 01/19/15 | | 15 11:45 | | | [...] | | (Comment | | Infiltration, ONCE, 01/19/15 at | | AM PDT | | | ) | | 1145, For 1 dose, Use for | | | | | | | addition to other parenteral | | | | | | | solutions., | | | | | | + +-------+ +-------+---+ + +---+---+ | | | +---+---+ documented in this encounter"
--- OUTSIDE RECORDS SUMMARY | ~2020-02-29 | XMS | Encounter Summary ---
Demographics + + + | Address | [address] | | | [place] [address] | + + + | Home Phone [...] Team Providers + +------+ + | Care Sexton Helper Name | Role | Phone | [...] as of this encounter Progress Notes Interface, Restaurant Crew Member In - 03/29/2005 5:05 AM PDT [id number] GEOVAN[facility] Date: 03/20/2005 Clinic: Rheumatology [...] and sense of disability is 5/10. Her case manager specialist needs a note from me that she [...] for the diagnosis of fibromyalgia by the [employer]. She also has the [...] to treat restless legs. There is a vendor quality supervisor in [place] who is using large doses to reduce [...] 4 months. Caitlin Rivera M.S., F.N.P. / [id number] / [id number] / [id number] / [id number] cc: Pedrito Gutierrez M.D. [address] [place] [address] [facility] [address] [place] [address] Electronically signed by Caitlin Rivera 03-28-2005 01:43:14 PM documented i n this encounter Plan of Treatment Not on filedocumented as of this encounter Visit Diagnoses Not on filedocumented in this encounter"
--- OUTSIDE RECORDS SUMMARY | ~2020-02-29 | XMS | Encounter Summary ---
Demographics + + + | Address | [address] | | | [place] [address] | + + + | Home Phone [...] Team Providers + +------+ + | Care Grocery Carrier Name | Role | Phone | + +------+ + | Maria Esther Cintron MD | PCP | | + +------+ + Reason for Visit + +--------+ + | Reason | Onset | Comments | | | Date | | + +--------+ + | Refill Request | 08/19/ | | | | 2010 | | + +--------+ + Encounter Details +--------+--------+ + + + | Date | Type | Department | Care Team | Description | +--------+--------+ + + + | 08/19/ | Refill | [facility] | Beto Meeks MD | Refill Request | | 2010 | | [facility] | [address] | | | | | [facility] | [place], [place] | | | | | [address] | [address] | | | | | [address] | [phone] | | | | | Physician's | | | | | | Pavilion, 1st floor | | | | | | [place], [place] | | | | | | [address] | | | | | | [phone] | | | +--------+--------+ + + + [...] this encounter Miscellaneous Notes Telephone Encounter - Anup Mancera - 08/19/2010 12:09 PM PSTLast Office Visit in [facility] was on 07/25/08 at 1:20 pm with Beto Meeks MD. documented in this encoun ter Plan of Treatment Not on filedocumented as of this encounter Visit Diagnoses Not on filedocumented in this encounter"
--- OUTSIDE RECORDS SUMMARY | ~2020-02-29 | XMS | Encounter Summary ---
Demographics + + + | Address | [address] | | | [place] [address] | + + + | Home Phone [...] Team Providers + +------+ + | Care Slicing Machine Tender Name | Role | Phone | + +------+ + | Pedrito Gutierrez MD | PCP | | + +------+ + Reason for Visit + +--------+ + | Reason | Onset | Comments | | | Date | | + +--------+ + | Follow-up visit | 04/13/ | | | | 2007 | | + +--------+ + Consultation (Routine) +--------+--------+ + + + + | Status | Reason | Specialty | Diagnoses / | Referred By | Referred To | | | | | Procedures | Contact | Contact | +--------+--------+ + + + + | Closed | | Pain | Diagnoses | [facility], | [place], | | | | Management | LBP (low | NIHARIKA Jean | Lukasz Rhodes, PhD | | | | | back pain) | [address] | [address] | | | | | DJD | [address] | Ave | | | | | (degenerativ | [place], [place] | [place] | | | | | e joint | [address] | [address] | | | | | disease) of | | Phone: | | | | | knee Knee | | [phone] | | | | | pain Major | | Fax: | | | | | depressive | | [phone] | | | | | disorder, | [...] 04/13/ | Office | [facility] | Lukasz Charles, | Major Depressive | | 2007 | Visit | [address] | PhD [address] | Disorder, Recurrent | | | | [facility] | [place], [place] | Episode, Mild (HCC); | | | | and Healing, | [address] | LBP (Low Back | | | | | [phone] | Pain); Migraine | | | | Floor [place], [place] | | Headache; Adjustment | | | | [address] | | Disorder with | | | | [phone] | | Anxiety | +--------+---------+ + + [...] per week and she likes the therapy poo l. She reported having more headaches and some [...] plans for her surgical recovery period. Diagnosis: [place] I: 1. (296.31) Major depressive disorder, recurrent, mild. 2. (309.24) Adjustment disorder with anxiety. 3. 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 [place] II: Deferred [place] III: abdominal pain, migraine headache, low back pain. [place] IV: low finances [place] V: GAF 55-60 Plan: return with next medical follow-up appointment. Check mood, pain, relaxation, activ ity, distraction, eating. Ask about headaches, fainting, surgery. Continue cognitive/behav ioral therapy. Total time spent with patient was approximately 45 minutes. LUKASZ CHARLES PHD [facility] [address] [place] [address] And [facility], 4th [place] [address] documented in this encount er Plan of Treatment + + +--------+ + + | Name | Type | Priori | Associated Diagnoses | Order Schedule | | | | ty | | | + + +--------+ + + | [facility], | Procedures | Routin | Major Depressive | Ordered: 04/13/2008 | | OFFICE ([id number]) | | e | Disorder, Recurrent | [...]
--- OUTSIDE RECORDS SUMMARY | ~2020-02-29 | XMS | Encounter Summary ---
Demographics + + + | Address | [address] | | | [place] [address] | + + + | Home Phone [...] Team Providers + +------+ + | Care Sap Technical Developer Name | Role | Phone | + +------+ + | Pedrito Gutierrez MD | PCP | | + +------+ + Reason for Visit + +--------+ + | Reason | Onset | Comments | | | Date | | + +--------+ + | Refill Request | 10/18/ | SIMON | | | 2009 | | + +--------+ + Encounter Details +--------+--------+ + + + | Date | Type | Department | Care Team | Description | +--------+--------+ + + + | 10/18/ | Refill | [facility]ive [facility] | Eliezer Ruano, | Refill Request | | 2009 | | Center [address] | [address] | (SUCRALFATE) | | | | Ave Mailcode: CH4S | [facility] | | | | | [facility] | [place], [place] | | | | | and [place], | [address] | | | | | [facility] | [phone] | | | | | [place], [place] | | | | | | [address] | | | | | | [phone] | | | +--------+--------+ + + + [...] this encounter Miscellaneous Notes Telephone Encounter - Roya Callaway Ma - 10/26/2009 3:32 PM PDTCalled pharmacy and adv ised that pt. Is to receive this from their PCP per Dr. Brantleyronically signed by Anupam Callaway Ma at 10/26/2009 3:32 PM PDTTelephone Encounter - Roya Callaway Ma - 10/19 1:00 PM PDT graphic Refill Belinda Meehan ( ) Contact Information Contacts Type Contact Phone 10/18/2009 5:14 PM Phone (Incoming) Tayo Mcdonough (Pharmacy) [phone] Call Documentation Roya Callaway Ma10/18/09 05:15 PM Signed Fax received. Last filled : 07/08/2009 Encounter Messages No Messages in this encounter Patient Education View Patient Education Report Allergies as of 10/18/2009 Date Reviewed:10/03/2009 Noted Type Reactions Keflex (Cephalexin) 01/22/2006 Sulfa (Sulfonamide Antibiotics) 01/22/2006 Codeine 01/22/2006 Penicillins 01/22/2006 Clindamycin 01/22/2006 Cipro (Ciprofloxacin) 01/22/2006 Tramadol 01/22/2006 Morphine IM ( only in [facility]) made gut pain worse, 08/27/06: Trial of oral MSIR caused leg swelling Clarithromycin 06/28/2007 Hives, Mainly in the legs Vradcqi-ofgrkigctu-wkg-caff 08/28/2008 Balance problems Amitriptyline 10/03/2008 Grand mal seizures Fioricet W/codeine (Jgs-ithsqubvnu-yptwwabzaf-caf) 02/21/2009 Refused Disp Refills Start End sucralfate (CARAFATE) 1 gram Oral Tablet 120 Tab 1 10/18/2009 Sig - Route: Take 1 Tab by mouth before meals. - Oral Class: eRx Reason for Refusal: Route to other provider Reason for Refusal Comment: To be filled by pt's PCP. Refused By: NIHARIKA KIRKPATRICK Pharmacy Used [id number] [phone] Orders and Results Diagnosis None ORDERS PLACED OR RELEASED THIS ENCOUNTER Telephone Contact Summary Incoming Call Date & Time Provider Department Center 10/18/2009 5:14 PM ELIEZER RUANO MD Bariatric [facility] Reason for Call Refill Request SUCRALFATE Routing History Routing History From To [facility] 10/18/09 05:59 PM NIHARIKA Kirkpatrick Ma Routine Called and told pharmacy that pt. Rx elephone Encounter - Roya Callaway Ma - 10/18/2009 5:15 PM PDTFax received. Last filled : 07/08/2009 documented in this e ncounter Plan of Treatment Not on filedocumented as of this encounter Visit Diagnoses Not on filedocumented in this encounter"
--- OUTSIDE RECORDS SUMMARY | ~2020-02-29 | XMS | Encounter Summary ---
Demographics + + + | Address | [address] | | | [place] [address] | + + + | Home Phone [...] + | Author | [facility] | | | and [place] | + + + | Organization | [facility] | | | [...] Team Providers + +------+ + | Care Hoop Expander Name | Role | Phone | + [...] + + | 10/18/ | Telephone | [facility] | Ulysses Genao MD | Appointment (MRI) | | 2014 | | OTOLARYNGOLOGY [address] | [address] [place] [address] | | | | | W [facility] [address] | [address] [place] | | | | | [place] | [id number] | | | | | [address] | | | | | | [phone] | | | +--------+ + + + [...] the orders have been sen t to [facility]. Patient already's has her follow up with . She is seeing Elisabet MCDONOUGH. Telephone Encounter - Reyna Kuo - 10/19/2014 4:02 PM PDTPatient called she states she got an ok from her insurance for the MRI and they told her they would contact our office to let us know this. Any questions please call patient back at [phone] sign ed by Reyna Kuo at 10/19/2014 4:09 PM PDTTelephone Encounter - Roz Morris - 015 4:55 PM PDTPatient called in asking if her appointment at [facility] has been made. Kevin rodriguez said [...] Petrona | | | | | | [address] [place] [address] [place] | | | | | | [place] [address] | | | | | | [phone] | | | | | | | | +--------+---------+ + + + documented as of this encounter Visit Diagnoses Not on filedocumented in this encounter"
--- OUTSIDE RECORDS SUMMARY | ~2020-02-29 | XMS | Encounter Summary ---
Demographics + + + | Address | [address] | | | [place] [address] | + + + | Home Phone [...] Providers + +------+ + | Care Machine Stripper Name | Role | Phone | + +------+ + | Sulaiman Carrera MD | PCP | | + +------+ + Reason for Visit + +--------+ + | Reason | Onset | Comments | | | Date | | + +--------+ + | Follow-up visit | 06/23/ | | | | 2013 | | [...] | | | | | Encounter | [place], [place] | | | | | for | [address] | [address] | | | | | long-term | | Phone: | | | | | (current) | | [phone] | | | | | use of other | | Fax: | | | | | medications | | [phone] | | | | | LBP (low [...] disorder, recurrent | | | [facility] | [place], [place] | episode, moderate | | | | and Healing, | [address] | ([facility]) (Primary Dx); | | | | | [phone] | LBP (low back pain); | | | | Floor [place], [place] | | Adjustment disorder | | | | [address] | | with anxiety | | | | [phone] | | | +--------+---------+ + + + [...] an appropriate candidate for a stimulator. Diagnosis: [place] I: 1. (296.32) Major depressive disorder, recurrent, moderate. 2. (309.24) Adjustment disorder with anxiety. [place] II: Deferred [place] III: abdominal pain, migraine headache, low back pain, fibromyalgia. [place] IV: low finances [place] V: GAF 55-60 Plan: return in 1 month. Check mood, pain, activity, stress management. Ask about spinal cord stimulator, any changes at home. Continue cognitive/behavioral therapy. Total time spent with patient was approximately 45 minutes. [facility] [address] [place] [address] And [facility], [address] [place] [address] documented in this en counter Plan of [...]
--- OUTSIDE RECORDS SUMMARY | ~2020-02-29 | XMS | Encounter Summary ---
Demographics + + + | Address | [address] | | | [place] [address] | + + + | Home Phone [...] Providers + +------+ + | Care Ground Host/Hostess Name | Role | Phone | + +------+ + PCP | Unavailable | + +------+ + Encounter Details +--------+ + + + + | Date | Type | Department | Care Team | Description | +--------+ + + + + | 08/09/ | Results | | Other, Faculty | | | 2002 | Only | | [phone] | | +--------+ + + + + [...] | + +--------+ + + + | SPECIMEN ROUTING | Routin | 08/09/2002 | | Results for this | | | e | 3:53 PM | | procedure are in the | | | | PST | | results section. | + +--------+ + + + documented in this encounter Results SPECIMEN ROUTING (08/09/2002 3:53 PM PST) + + + + + + | Component | Value | Ref Range | Performed | Pathologist | | | | | At | Signature | + + + + + + | SAMPLE | 7ml yassine clarke | | [facility] | | | TYPE-ROUTIN | | | DEPARTMENT | | | G | | | OF | | | | | | PATHOLOGY | | + + + + + + | TEST | Lipid to Octaviano | | [facility] | | | REQUESTED | | | DEPARTMENT | | | | | | OF | | | | | | PATHOLOGY | | + + + + + + | SENT TO | Lipid Lab:Ext | | [facility] | | | | | | DEPARTMENT | | | | | | OF | | | | | | PATHOLOGY | | + + + + + + + + | Specimen | + + | | + + + + + | Narrative | Performed At | + + + | Ordered by [facility] | [facility] | | | DEPARTMENT OF | | | PATHOLOGY | + + + + + + + + | Performing | Address | City/State/Zipcode | Phone Number | | Organization | | | | + + + + + | [facility] DEPARTMENT OF | [address] | [place] [address] | | | PATHOLOGY | [address] | | | + + + + + | [facility] | [address] | [place] [address] | | | PATHOLOGY | [address] | | | + + + + + documented in this encounter Visit Diagnoses Not on filedocumented in this encounter"
--- OUTSIDE RECORDS SUMMARY | ~2020-02-29 | XMS | Encounter Summary ---
Demographics + + + | Address | [address] | | | [place] [address] | + + + | Home Phone [...] Providers + +------+ + | Care Solar Installation Crew Supervisor Name | Role | Phone [...] + | 01/18/ | Refill | [facility] | Alanis, | Medication Refill; | | 2018 | | MEDICINE [address] | MD Petrona | Medication Refill | | | | [place], | [address] [facility] | | | | | [place] [address] | [place] [address] | | | | | [phone] | [phone] | | | | | | | [...] | | | | | [place] [address] | | | | | | [phone] | | | | | | | | +--------+---------+ + + + documented as of this encounter Visit Diagnoses Not on filedocumented in this encounter"
--- OUTSIDE RECORDS SUMMARY | ~2020-02-29 | XMS | Encounter Summary ---
Demographics + + + | Address | [address] | | | [place] [address] | + + + | Home Phone | | + + + | Preferred Language | Unknown | + + + | Marital Status | | + + + | Congregational Affiliation | 1001 | + + + | Race | White | + + + | Ethnic Group | Not or | + + + Author + + + | Author | [facility] | | | and [place] | + + + | Organization | [facility] | | | [...] Team Providers + +------+ + | Care Supervisory Training Specialist Name | Role | Phone | [...] + + | 02/27/ | Telephone | [facility] | Alanis, | Migraine | | 2019 | | MEDICINE [address] | MD Petrona | | | | | [place], | [address] [facility] | | | | | [place] [address] | [place] [address] | | | | | [phone] | [phone] | | | | | | | [...] medical a ttention at the ED in [place], [place] for evaluation. Understands and acceptsElectronically si [...] | | | | | | [place] [address] | | | | | | [phone] | | | | | | | | +--------+---------+ + + + documented as of this encounter Visit Diagnoses Not on filedocumented in this encounter"
--- OUTSIDE RECORDS SUMMARY | ~2020-02-29 | XMS | Encounter Summary ---
Demographics + + + | Address | [address] | | | [place] [address] | + + + | Home Phone [...] Team Providers + +------+ + | Care C 13 Catapult Operator Name | Role | Phone | + +------+ + | Maria Esther Cintron MD | PCP | | + +------+ + Encounter Details +--------+ + + + + | Date | Type | Department | Care Team | Description | +--------+ + + + + | 04/19/ | Telephone | Digestive Health | Chris Padgett, | | | 2007 | | [place] [address] | [address] [facility] | | | | | Bethanie Mailcode: CH4S | [address] | | | | | [facility] | [place], [place] | | | | | and Healing, | [address] | | | | | Building , [address]th | [phone] | | | | | Floor [place], [place] | | | | | | [address] | | | | | | [phone] | | | +--------+ + + + [...] Notes Telephone Encounter - Zachary Sampson - 12/03/2010 10:39 AM PDTThis encounter has been admin istratively closed with the authorization of the [facility] Committee. elephone Encounter - Adriana Toro - 04/19/2008 2:23 PM Jessica Meehan calling to see if there's a way she c an get the lotion she was given in the hospital ordered to the pharmacy or something because it's the best lotion she has ever used. Please follow up. Pain Scale: 0 Recent Surgery or Procedure: no Pharmacy: Pharmacy Preferences: [facility] [address] [place] [address] 9AM-9PM MON-FRI / 9AM-7PM SAT / 10AM-6PM SUN documented in this encou nter Plan of Treatment Not on filedocumented as of this encounter Visit Diagnoses Not on filedocumented in this encounter"
--- OUTSIDE RECORDS SUMMARY | ~2020-02-29 | XMS | Encounter Summary ---
Demographics + + + | Address | [address] | | | [place] [address] | + + + | Home Phone [...] Team Providers + +------+ + | Care Dining Service Worker Name | Role | Phone [...] + + | 03/02/ | Office | [facility] | Alanis, | Neck pain on right | | 2018 | Visit | MEDICINE [address] | MD Petrona | side (Primary Dx); | | | | [address] [place], | [address] [place] | Primary stabbing | | | | [place] [address] | [place] [address] | headache; | | | | [phone] | [phone] | Non-intractable | | | | | [...] Medical Student - 03/02/2018 9:30 AM PDT [facility] PROGRESS NOTE Pt. Name/Age/: eBlinda Meehan 58 y.o. 1960 Med. Record Number: [id number] HPI: Belinda Meehan is a 58 y.o. [...] with myelopathy, lumbar region Stroke ([facility]) Syncope Tremor Type II or unspecified type diabetes mellitus with other specified manifestations, not stated as uncontrolled 05/04/2017 Vitamin D deficiency Past Surgical History: Procedure Laterality Date ADENOIDECTOMY APPENDECTOMY BREAST LUMPECTOMY Left 2002 CARPAL TUNNEL RELEASE 2001 SECTION CHOLECYSTECTOMY 2004 COLONOSCOPY N/A 12/18/2017 Procedure: COLONOSCOPY; Surgeon: Luther Brito MD; Location: [facility] MEDICAL PROCEDURE UNIT DILATION AND CURETTAGE OF UTERUS ELBOW SURGERY FINGER TRIGGER RELEASE 2002 FINGER TRIGGER RELEASE 2009 GASTRIC BYPASS SURGERY 2004 HYSTERECTOMY 05/14/1980 JOINT REPLACEMENT Bilateral 2007,2008 KNEE ARTHROSCOPY 2005 LAPAROSCOPY 01/27/2015 LAPAROTOMY 2008 ROTATOR CUFF REPAIR 2005 SPINE SURGERY TONSILLECTOMY 1964 UPPER GASTROINTESTINAL ENDOSCOPY N/A 12/18/2017 Procedure: EGD; Surgeon: Luther Brito MD; Location: [facility] MEDICAL PROCEDURE UNIT Allergies Allergen Reactions Levofloxacin Hives,Itching,Rash Fnzrnqrmeh-Uhbq-Dpafacwa Hives,Rash Cephalexin Hives Ciprofloxacin Hives,Rash Clarithromycin Hives,Rash [...] mcg 1,000 mcg Intramuscular Q30 Days Morelia Thapa, MD 1,000 mcg at 02/17/18 1149 Physical [...] 1 month around 04/01/2018. Electronically signed by: Oksnaa Florian, 03/02/2018 11:37 Associated attestation - Petrona [...] | | | | | [place] [address] | | | | | | [phone] | | | | | | | [...] | | | | | | [facility] | | | | | | [facility]ICAL | | | | | | CENTER - | | | | | | LABORATORY | | + + + + + + | Glucose | 101 | 70 - 109 mg/dL | [facility] | | | [facility] | | | | | | [facility]ICAL | | | | | | CENTER - | | | | | | LABORATORY | | + + + + + + | BUN | 9 | 7 - 18 mg/dL | [facility] | | [facility] | | | | | | [facility]ICAL | | | | | | CENTER - | | | | | | LABORATORY | | + + + + + + | Creatinine | 0.83 | 0.60 - 1.30 | [facility] | [...] | mL/min/1.73m2 | [facility] | | | Israeli | RATE,ESTIMATED | | MEDICAL | | | | mL/min/1.37z4Vibn than | | CENTER - | | [...] + | [facility] | [address] | [place] | [phone] | | [facility] | | [address] | | | - LABORATORY | | | | + + + + + CBC with Differential (03/02/2018 10:41 AM PDT) + + + + + + | Component | Value | Ref Range | Performed | Pathologist | | | | | At | Signature | + + + + + + | White Blood | 10.3 | 4.0 - 11.0 K/uL | [facility] | | | Cells | | | [facility] | | | | | | MEDICAL | | | | | | CENTER - | | | | | | LABORATORY | | + + + + + + | Red Blood | 4.66 | 3.70 - 5.20 | [facility] | | | Cells | | M/uL | [facility] | | | | | [...] 0.20 (H) | 0.00 - 0.10 | [facility] | [...] [address] | [place] | [phone] | | [facility] | | [address] | | | - LABORATORY | | | | + + + + + Sedimentation Rate (03/02/2018 10:41 AM PDT) + +-------+ + + + | Component | Value | Ref Range | Performed | Pathologist | | | | | At | Signature | + +-------+ + + + | Erythrocyte | 4 | <30 mm/hr | [facility] | | | | | | [facility] | | | Sedimentati | | [...] + | [facility] | [address] | [place] | [phone] | | [facility] | | [address] | | | - LABORATORY | | [...]
--- OUTSIDE RECORDS SUMMARY | ~2020-02-29 | XMS | Encounter Summary ---
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 Her IGF-1 was low [...] 3 months. Caitlin Rivera M.S., F.N.P. / [id number] / [id number] / [id number] / cc: Pedrito Gutierrez M.D. [address] [place], [place] [address] documented i n this encounter Plan of Treatment Not on filedocumented as of this encounter Visit Diagnoses Not on filedocumented in this encounter"
--- OUTSIDE RECORDS SUMMARY | ~2020-02-29 | XMS | Encounter Summary ---
Demographics + + + | Address | [address] | | | [place] [address] | + + + | Home Phone [...] Providers + +------+ + | Care Family Practice Nurse Practitioner Name | Role | Phone [...] Status Post | | 2007 | | [facility] [address] | [address] [facility] | Bariatric Surgery | | | | Ave Mailcode: CH4S | [address] | (Primary Dx) | | | | [facility] | [place], [place] | | | | | and Healing, | [address] | | | | | Building [address] | [phone] | | | | | Floor [place], [place] | | | | | | [address] | | | | | | [phone] | | | +--------+ + + + [...] | | | | | ng/mLPerformed by [facility] | | | | | | [facility],[address] | | | | | | [place] [address] | | | | | | [phone] | | | | | | Sincere [...] [facility] | [address] | [place], [place] | | | [facility] | | [address] | | + + + + + [...] | pg/mL | | | | | [facility]. | | | | + + + + + + + + | Specimen | + + | | + + + + + + + | Performing | Address | City/State/Zipcode | Phone Number | | Organization | | | | + + + + + | [facility] | [address] | [place] [address] | | | LABORATORY | | | [...] change effective | | | 04/05/07 [facility] ([facility]) | | | [place] [address] [address] | | | [place] [address] | | + + + + + + + + | Performing | Address | City/State/Zipcode | Phone Number | | Organization | | | | + + + + + | [facility] | [address] | [place] [address] | | | LABORATORY | | | [...] [facility] ([facility]) | | | [facility] [address] | | | [place] [address] | | + + + + + + + + | Performing | Address | City/State/Zipcode | Phone Number | | Organization | | | | + + + + + | [facility] | [address] | [place] [address] | | | LABORATORY | | | [...] Performed At | + + + | [address] Estimated GFR > 60 mL/min/1.73 sq m if non- | [facility] | | [address] Estimated GFR > 60 mL/min/1.73 sq m [...] | + + + + + | [facility] | [address] [facility] | [place] [address] | | | PATHOLOGY | [address] | | | + + + + + | [facility] | [address] [facility] | [place] [address] | | | PATHOLOGY | [address] [...] | + + + + + | [facility] | [address] | [place] [address] | | | PATHOLOGY | [address] | | | + + + + + | [facility] | [address] | [place] [address] | | | PATHOLOGY | [address] | | | + + + + + documented in this encounter Visit Diagnoses + + | Diagnosis | + + | Status post bariatric surgery - Primary Bariatric surgery status | + + documented in this encounter"
--- OUTSIDE RECORDS SUMMARY | ~2020-02-29 | XMS | Encounter Summary ---
Demographics + + + | Address | [address] | | | [place] [address] | + + + | Home Phone [...] Team Providers + +------+ + | Care Meat Packager Name | Role | Phone | + [...] Xray | | | | | | [place], | [address] | | | | | Sacroiliitis | Carlos Armijo MD | [place], | | | | | , not | [address] | [place] | | | | | elsewhere | [facility] | [address] | | | | | classified | [place], [place] | Phone: | | | | | (HCC) | [address] | [phone] | | | | | Procedures | Phone: | Fax: | | | | | [place] INJECT SI | [phone] | [phone] | | | | | JOINT | Fax: | | | | | | ARTHRGRPHY&/ | [phone] | | | | | | ANES/STEROID | | | | | | | W/IMAGE [place] | | | | | | | [...] + + | 02/27/ | Hospital | [facility] | Joe, | Bilateral | | 2014 | Encounter | MED CTR XRAY [address] | MARY Montero [address] | sacroiliitis (HCC) | | | | [place] | [facility] [address] | (Primary Dx); | | | | [place] [address] | [place] [address] | Chronic low back | | | | [phone] | [phone] | pain; SCOLIOSIS , | | | | | | IDIOPATHIC; S/P | | | | | Soap Boiler, [facility]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; | | | | [...] | 0 | 02/29/20 | | | (NIEVES-S) 0.25% | | | | 12 | [...] TRIPP | | | | | | [place] [address] | | | | | | [phone] | | | | | | | [...] [facility] | | Sacroiliitis ICD-9 720.0 Belinda Praful Meehan presents to the | [facility] | | fluoroscopy suite for fluoroscopically guided bilateral sacroiliac | [facility] | | joint steroid injections as [...] ST. | [address] | [place] | [phone] | | [facility] | | [address] | | | - IMAGING | | | | + + + + + [place] Sacroiliac Injection Left (02/27/2015 2:12 PM PDT) + + | Specimen | + + | | + + + + + | Narrative | Performed At | + + + | 02/27/2015 Bilateral Sacroiliac Joint Injection Clinical History: | [facility] | | Sacroiliitis ICD-9 720.0 Belinda Meehan presents to the | [facility] | | fluoroscopy suite for fluoroscopically guided bilateral sacroiliac | [facility] | | joint steroid injections as [...] + | [facility] | [address] | [place] | [phone] | | [facility] | | [address] | | | - IMAGING | | [...]
--- OUTSIDE RECORDS SUMMARY | ~2020-02-29 | XMS | Encounter Summary ---
Demographics + + + | Address | [address] | | | [place] [address] | + + + | Home Phone [...] Providers + +------+ + | Care Supervisor M[employer] Name | Role | Phone | + +------+ + | Petrona Thapa | PCP | | | MD | | | + +------+ + Encounter Details +--------+ + + + + | Date | Type | Department | Care Team | Description | +--------+ + + + + | 12/18/ | Anesthesia | [facility] | Ruben Kumar | | | 2018 | Event | [facility] | MD [address] | | | | | [address] | [facility] | | | | | [place] | [place] [address] | | | | | [address] | [phone] | | | | | [phone] | | | +--------+ + + + + Anesthesia Record + + + + + | Procedure Name | Responsible | Anesthesia Start | Anesthesia Stop Time | | | Anesthesiologist | Time | | + + + + + | DIONNE (N/A Danuta) | Ruben Treviño | 12/18/17 1051 | [...] by | 12/18/17 1321 by | | eral | [id number] catheter system; | Jaye Bird, | Lucy [...] + + documented as of this encounter OR Notes Anesthesia Postprocedure Evaluation - Ruben Kumar MD - 12/18/2017 1:56 PM PDTFo rmatting of this note might be different from the original. ANESTHESIA POSTANESTHESIA EVALUATION Belinda Meehan 57 y.o. female 1960 [id number] Procedure(s) EGD (N/A Mouth) COLONOSCOPY (N/A Rectum) Cooperates? Yes Mental Status Performs simple tasks. Respiratory Satisfactory - Airway patent (self maintained). Cardiovascular Satisfactory - Blood pressure and heart rate acceptable Temperature Satisfactory Pain Satisfactory N/V Control Satisfactory Hydration Satisfactory - No signs of dehydration Complications None apparent Vitals: 12/18/17 1201 12/18/17 1215 12/18/17 1230 BP: 110/71 115/75 115/75 Pulse: 79 73 83 Temp: 36.5 C (97.7 F) Resp: 16 15 15 SpO2: 95% 94% 97% Electronically signed by Ruben Kumar MD 12/18/2017 13:56 [facility] Ruben Kumar MD a t 12/18/2017 1:56 PM PDTAnesthesia Preprocedure Evaluation - Ruben Kumar MD - 10:54 AM PDT ANESTHESIA PREANESTHESIA EVALUATION Belinda Meehan 57 y.o. female 1960 [id number] Procedure(s): EGD (N/A Mouth) COLONOSCOPY (N/A Rectum) Medical history, anesthesia, medications, allergy, NPO status verified histories reviewed. Review of Systems / Med History Anesthesia History No anesthesia complications. Cardiovascular (+) hypertension Pulmonary (+) sleep apnea: known Neurology (+) CVA, headaches, scoliosis, back pain, chronic pain, fibromyalgia Psychology (+) anxiety, depression Endocrine (+) hypothyroidism (+) Diabetes: type 2, NIDDM (+) obesity: BMI (30-39) Other (+) anemia, arthritis Physical Exam Airway MP II, TM >3 FB, Dental ; (+) dentures-lower and dentures-upper. CV cardiovascular normal Rhythm regular. Rate normal. Pulm Clear to auscultation bilaterally. (-) wheezing. Other Looks much older than stated age Anesthesia Plan ASA 3 (OLIVER, h/o CVA) Type: TIVA and general. Induction: Intravenous. Potential problems: None anticipated. Monitors: Standard ASA monitors. Consent statement:Anesthetic plan, alternatives, risks and benefits discussed with patient. Risks discussed included (but were not limited to): pain, respiratory events, voice injury, dental injury, perioperative CV events, sore throat, nausea, heart problems, . Consenting person understands and agrees to proceed. PARQ. All questions answered in pre-op area before proceeding to GI suite - agrees to plan of TIV A with possibility of advanced airway if clinically indicated. Risk of aspiration with endos copy under TIVA explicitly discussed and patient desires to proceed. . Electronically Signed by: Ruben Kumar MD ESig date/time: 12/18/2017 10:53 documented in t his encounter Plan of Treatment +--------+---------+ + + + | Date | Type | Specialty | Care Team | Description | +--------+---------+ + + + | 05/17/ | Office | Internal Medicine | Alanis, | | | 2019 | Visit | | MD Petrona | | | | | | [address] [place] [address] [place] | | | | | | [place] [address] | | | | | | [phone] | | | | | | | [...]
--- OUTSIDE RECORDS SUMMARY | ~2020-02-29 | XMS | Encounter Summary ---
Demographics + + + | Address | [address] | | | [place] [address] | + + + | Home Phone [...] Providers + +------+ + | Care Health Science Writer Name | Role | Phone | + +------+ + | Petrona Thapa | PCP | | | MD | | | + +------+ + Reason for Visit +---------+--------+ + | Reason | Onset | Comments | | | Date | | +---------+--------+ + | Results | 12/20/ | | | | 2019 | | +---------+--------+ + Encounter Details +--------+ + + + + | Date | Type | Department | Care Team | Description | +--------+ + + + + | 12/20/ | Telephone | [facility] | Alanis, | Results | | 2019 | | MEDICINE [address] | MD Petrona | | | | | [place], | [address] [facility] [place] | | | | | [place] [address] | [place] [address] | | | | | [phone] | [phone] | | | | | | | [...] this encounter Miscellaneous Notes Telephone Encounter - Shanta Whaley, Internal Grinder Tender - 12/21/2019 3:34 PM PDTPt ad vised with comments and recommendations. She agrees and will come back next month for B12 injection. elephone Encounter - Petrona López i, MD - 12/21/2019 3:12 PM PDTI agree with that recommendation in principle a s after bariatric surgery she is likely to become deficient if she does not supplement. How ever, given recent elevated levels, it would be just fine to inject every other month instea d of monthly. elephone Encounter - Shanta Whaley Internal Grinder Tender - 12/21/2019 2:52 PM PDTAdv ised pt with recommendations and comments. Patient comments doctor from her gastric bypass surgery in 2003, suggested to take B12 inje ctions for the rest of her life. Did not give a reason as to why she has to receive them. Please advise. elephone Encounter - Rebekah Maldonado - 12/21/2019 2:20 PM PDTPatient returned your call. Please advise elephone Encounter - Isabell serrano, Priscilla Lau RN - 12/21/2019 12:37 PM PDTCalled and left a message for patient to return c all. elephone Encoun ter - Priscilla Grant RN - 12/21/2019 12:36 PM PDT----- Message from Petrona Whitlock MD sent at 12/21/2019 12:33 PM PDT ----- Labs show a high level of vitamin B12 which is about 2-1/2 times the upper limit of normal. No need for supplementation at this pointElectronically signed by Priscilla Grant RN at 0 12/21/2019 12:36 PM PDTdocumented in this encounter Plan of Treatment +--------+---------+ + + + | Date | Type | Specialty | Care Team | Description | +--------+---------+ + + + | 05/17/ | Office | Internal Medicine | Alanis, | | | 2019 | Visit | | MD Petrona | | | | | | [facility] [address] | | | | | | [place] [address] | | | | | | [phone] | | | | | | | | +--------+---------+ + + + documented as of this encounter Visit Diagnoses Not on filedocumented in this encounter"
--- OUTSIDE RECORDS SUMMARY | ~2020-02-29 | XMS | Encounter Summary ---
Demographics + + + | Address | [address] | | | [place] [address] | + + + | Home Phone [...] + +------+ + | Care Customer Sales Specialist Name | Role | Phone [...] + + | 06/28/ | Office | [facility] | Delfina Molina, | LBP (Low Back Pain); | | 2007 | Visit | Pain Center at | ANP | Encounter for | | | [facility] | | Long-Term (Current) | | | | [address] | | Use of Opioids; | | | [facility] | | Arthroplasty of the | | | | and Healing, | | Left Knee; Bilateral | | | | Building | | Knee Pain; [facility] | | | | Floor [place], [place] | | (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 Epidural steroid injections are awhile call to schedule with Dr. Kylah SHEEHAN. documented in this encounter Progress Notes Delfina Molina - 06/28/2007 8:56 AM PSTFormatting of this note might be different from lesli gomez. 06/28/2007 Belinda Meehan is a 47 y.o. female [facility] Center Return Visit Chief [...] last month [ see's every 6 months [facility] e optic nerve hemorrhagia] "resently starting to [...] it difficult to find a comfortable position whteri e having ot be in bed so long. Son primary healthcare risk control consultant. Current outpatient medications Medication Sig Dispense Refill [...] Collection Time Resulting Agency 05/25/2007 4:06 PM [facility] DEPARTMENT OF RADIOLOGY Component Results MR [...] up visits today 5. Schedule physical therapy [place] Nathalia Arora once she has finished with her knee rehabi litaion [ estimated in two weeks]. 6. Epidural steroid injections are an option of care for her lumbar radicular pain. 7. Schedule follow up in 4-6 weeks or sooner if needed - The pateint was asked to call the clinic with any concerns or questions. DELFINA MOLINA [facility] Mail code CH 4P [facility] [address] [place] [address] Ailyn Bello - 06/28/19 08 8:38 AM PSTCMA History: PMH/PSH/SH/FH review 1. Has [...]
--- OUTSIDE RECORDS SUMMARY | ~2020-02-29 | XMS | Encounter Summary ---
Demographics + + + | Address | [address] | | | [place] [address] | + + + | Home Phone [...] Team Providers + +------+ + | Care Printed Circuit Boards Plasma Etcher Name | Role | Phone | + [...] [address] | | | | | [facility] | [place], [place] | | | | | and Healing, | [address] | | | | | [facility], [facility] | [phone] | | | | | Floor [place], [place] | | | | | | [address] | | | | | | [phone] | | | +--------+ + + + [...] Notes Telephone Encounter - Kenisha Melton - 01/13/2008 11:01 AM PDTThe patient will be called by the [employer], her check will be mailed soon, for her participation in the study . NADEGE Alcantar, was alerted to the residual anterior right thigh numbness after epidural use during her recent hospital stay. elephone Encounter - Kenisha Melton - 01/12/2008 9:04 AM PDTPt. Had explora tory surgery for adhesions on 12/27/07. She still has residual numbness on her right anterio r thigh. She had an epidural placed, the numbness was present in her entire leg during her hospitalization. She would like to know if this is normal. The numbness does not affect he r strength or walking ability. She understood that a new medication was used to wake her up from anesthesia, and she might be eligible for compensation since it was a study. Will ebony ck with anesthesia. She was seen last week for staple removal. Next appt is in 6 months.El ectronically signed by Kenisha Melton at 01/12/2008 9:04 AM PDTTelephone Encounter - Ju Hill - 01/10/2008 9:33 AM PDTPost op question regarding anesthesia, how would she kn ow if a special drug was used for her surgery? Seemed to think some compensation was due her for this trial study. DOS 7-14-08. Patient approves confidential and detailed messages left on answering machine and voicemail. documented in this encoun ter Plan of Treatment Not on filedocumented as of this encounter Visit Diagnoses Not on filedocumented in this encounter"
--- OUTSIDE RECORDS SUMMARY | ~2020-02-29 | XMS | Encounter Summary ---
Demographics + + + | Address | [address] | | | [place] [address] | + + + | Home Phone [...] Team Providers + +------+ + | Care Earth Science Technical Officer Name | Role | Phone [...] Rd | | | | | | [place], [place] | | | | | | [address] | | | +--------+ + + + [...] + documented as of this encounter Procedure Andrea Gibbons, Faculty - 11/03/2013 10:22 AM PDTAssociated Order(s): BONE DENSITOMETRYElectronicall y signed by Faculty Other at 11/03/2013 10:22 AM PDTdocumented in this encounter Plan of [...]
--- OUTSIDE RECORDS SUMMARY | ~2020-02-29 | XMS | Encounter Summary ---
Demographics + + + | Address | [address] | | | [place] [address] | + + + | Home Phone [...] Team Providers + +------+ + | Care Pnp Name | Role | Phone | + +------+ + | Petrona Thapa | PCP | | | MD | | | + +------+ + Reason for Visit + +--------+ + | Reason | Onset | Comments | | | Date | | + +--------+ + | Medical Problem | 07/17/ | | | | 2017 | | + +--------+ + Encounter Details +--------+ + + + + | Date | Type | Department | Care Team | Description | +--------+ + + + + | 07/17/ | Telephone | [facility] | Alanis, | Medical Problem | | 2017 | | MEDICINE [address] | MD Petrona | | | | | [place], | [address] [facility] | | | | | [place] [address] | [place] [address] | | | | | [phone] | [phone] | | | | | | | [...] Telephone Encounter - Maggie Montoya LPN - 07/17/2017 11:54 AM PSTReceived call from slick jacobsen stating that she woke up from her nap and took her morning medications again, states: Thyr oid, Topiramate, Lasix and Torsemide. MD notified and advised to increase her fluid intake t elias , careful when getting up too quickly. Will call back if any other worry some symptoms. Patient understands and accepts 11: 57 AM PSTdocumented in this encounter Plan of Treatment +--------+---------+ + + + | Date | Type | Specialty | Care Team | Description | +--------+---------+ + + + | 05/17/ | Office | Internal Medicine | Alanis, | | | 2019 | Visit | | MD Petrona | | | | | | [address] [place] [address] [place] | | | | | | [place] [address] | | | | | | [phone] | | | | | | | | +--------+---------+ + + + documented as of this encounter Visit Diagnoses Not on filedocumented in this encounter"
--- OUTSIDE RECORDS SUMMARY | ~2020-02-29 | XMS | Encounter Summary ---
Demographics + + + | Address | [address] | | | [place] [address] | + + + | Home Phone [...] Team Providers + +------+ + | Care Eyelet Row Marker Name | Role | Phone | + +------+ + | Pedrito Gutierrez MD | PCP | | + +------+ + Reason for Visit + +--------+ + | Reason | Onset | Comments | | | Date | | + +--------+ + | Follow-up visit | 09/23/ | | | | 2006 | | + +--------+ + Encounter Details +--------+---------+ + + + | Date | Type | Department | Care Team | Description | +--------+---------+ + + + | 09/23/ | Office | Pain Center at [facility] | Lukasz Charles, | Major Depressive | | 2006 | Visit | [address] | PhD [address] | Disorder, Recurrent | | | | [facility] | [place], [place] | Episode, Moderate | | | | and Healing, | [address] | (HCC); Chronic | | | | | [phone] | Abdominal Pain; | | | | Floor [place], [place] | | Herniated Lumbar | | | | [address] | | Intervertebral Disc | | | | [phone] | | L4-5; DJD | | | | | | [...] progress but still neglects self-care occasionally. Diagnosis: [place] I: 1. (296.32) Major depressive disorder, recurrent, moderate. 2. (309.24) Adjustment disorder with anxiety. 3. (307.89) Chronic pain disorder associated with both psychological factors and a gene ral medical condition. [place] II: Deferred [place] III: abdominal pain, migraine headache, low back pain. [place] IV: low finances [place] V: GAF 50 Plan: Return in 2 weeks. Check preparation for move and for niece's visit, [employer] gym, pacing, r elaxation, activity, distraction. Check managing Pain... book. Discuss need for further vi sits. Total time spent with patient was approximately 45 minutes. LUKASZ CHARLES PHD [facility] [address] [facility], [address] [place] [address] documented in this encount er Plan of Treatment + + +--------+ + + | Name | Type | Priori | Associated Diagnoses | Order Schedule | | | | ty | | | + + +--------+ + + | [place] PSYCHOTHERPY, | Procedures | Routin | Major Depressive | Ordered: 09/23/2006 | | OFFICE (19-56) | | e | Disorder, Recurrent | [...]
--- OUTSIDE RECORDS SUMMARY | ~2020-02-29 | XMS | Encounter Summary ---
Demographics + + + | Address | [address] | | | [place] [address] | + + + | Home Phone [...] Team Providers + +------+ + | Care Physician Non Invasive Cardiologist Name | Role | Phone | + +------+ + | Pedrito Gutierrez MD | PCP | | + +------+ + Reason for Visit + +--------+ + | Reason | Onset | Comments | | | Date | | + +--------+ + | Discussion | 04/05/ | | | | 2007 | | + +--------+ + Encounter Details +--------+ + + + + | Date | Type | Department | Care Team | Description | +--------+ + + + + | 04/05/ | Telephone | Neurology at | Taniya Guerrero, | Discussion | | 2007 | | [facility] & | MD | | | | | Healing [address] | | | | | | e [facility] | | | | | | Health and Healing, | | | | | | Building | | | | | | Floor [place], [place] | | | | | | [address] | | | | | | [phone] | | | +--------+ + + + [...] this encounter Miscellaneous Notes Telephone Encounter - Austin Riley RN - 04/05/2008 2:03 PM PDTPt calls to state she cannot call long-distance, so can't call Dr. García for appt. ([facility] has [address] Nitin keller on pt's behalf, but discovered she does not take OHP or medicare pts. Dr. Nichols does, but does not have opening until late May. They will call pt to set up appt.Electronical ly signed by Austin Riley RN at 04/05/2008 2:03 PM PDTdocumented in this encounter Plan of Treatment Not on filedocumented as of this encounter Visit Diagnoses Not on filedocumented in this encounter"
--- OUTSIDE RECORDS SUMMARY | ~2020-02-29 | XMS | Encounter Summary ---
Demographics + + + | Address | [address] | | | [place] [address] | + + + | Home Phone [...] Team Providers + +------+ + | Care Qa Tester Name | Role | Phone | + +------+ + | Pedrito Gutierrez MD | PCP | | + +------+ + Encounter Details +--------+ + + + + | Date | Type | Department | Care Team | Description | +--------+ + + + + | 07/30/ | Office | [facility] [address] | Clinic, | Progress Note | | 2006 | Visit-Trans | [facility] | Endocrinology | | | | kurt | Sacha | | | | | | [facility], | | | | | | 7th floor | | | | | | [place], [place] | | | | | | [address] | | | | | | [phone] | | | +--------+ + + + [...] as of this encounter Progress Notes Interface, Magnetometer Operator In - 09/16/2006 7:22 AM PDT [id number] GEOVANNI SKELTON Molly [id number] Clinic Date: 07/30/2006 Clinic: Endocrinology Subjective: Belinda [...] year. Beto Meeks M.D. PD / HS [id number] / [id number] / [id number] / [id number] cc: Jonana Arshad M.D. Jonathan Hitzman, M.D. [address] [facility] [place] [address] Electronically signed by Beto Meeks 09-15-2006 11:40:17 PM documented in this encounter Plan of Treatment Not on filedocumented as of this encounter Visit Diagnoses Not on filedocumented in this encounter"
--- OUTSIDE RECORDS SUMMARY | ~2020-02-29 | XMS | Encounter Summary ---
Demographics + + + | Address | [address] | | | [place] [address] | + + + | Home Phone [...] Providers + +------+ + | Care Precision Aircraft Systems Assembler Name | Role | Phone | + +------+ + | Pedrito Gutierrez MD | PCP | | + +------+ + Reason for Visit + +--------+ + | Reason | Onset | Comments | | | Date | | + +--------+ + | Follow-up visit | 07/31/ | | | | 2006 | | + +--------+ + Encounter Details +--------+---------+ + + + | Date | Type | Department | Care Team | Description | +--------+---------+ + + + | 07/30/ | Office | [facility] Center at [facility] | Lukasz Charles, | Major Depressive | | 2006 | Visit | [address] | PhD [address] | Disorder, Recurrent | | | | Center [facility] | [place], [place] | Episode, Moderate; | | | | and Healing, | [address] | Chronic Abdominal | | | | | [phone] | Pain; Herniated | | | | Floor [place], [place] | | Lumbar | | | | [address] | | Intervertebral Disc | | | | [phone] | | L4-5; Spondylosis | | | [...] She set a goal to go to [place] with a friend and use pacing skills during the trip. Ms. Meehan has depression and frustration. She is having some difficulty increasing her a ctivity level but she is putting forth effort. She appears to have good insight. Diagnosis: [place] I: 1. (296.32) Major depressive disorder, recurrent, moderate. 2. (309.24) Adjustment disorder with anxiety. 3. (307.89) Chronic pain disorder associated with both psychological factors and a gene ral medical condition. [place] II: Deferred [place] III: abdominal pain, migraine headache, low back pain. [place] IV: low finances [place] V: GAF 50 Plan: Return in 2 weeks. Check pacing, relaxation, activity. Check trip to [place]. Check mood. Continue cognitive/behavioral therapy. Total time spent with patient was approximately 45 minutes. LUKASZ CHARLES [facility] [address] [place] [address] documented in this encount er Plan of Treatment + + +--------+ + + | Name | Type | Priori | Associated Diagnoses | Order Schedule | | | | ty | | | + + +--------+ + + | [place] PSYCHOTHERPY, | Procedures | Routin | Major Depressive | Ordered: 07/31/2006 | | OFFICE (57-59) | | e | Disorder, Recurrent | [...]
--- OUTSIDE RECORDS SUMMARY | ~2020-02-29 | XMS | Encounter Summary ---
Demographics + + + | Address | [address] | | | [place] [address] | + + + | Home Phone [...] Team Providers + +------+ + | Care Postal Clerk Name | Role | Phone | [...] | | | | pain | [place]ce [place] | [facility] [address] | | | | | Procedures | [address] | [address] | | | | | CONSULT TO | [place] | [place] | | | | | GI PROCEDURE | [address] | [address] | | | | | UNIT: | Phone: | | | | | | COLONOSCOPY | [phone] | | | | | | | Fax: | | | | | | | [phone] | | + + + + + [...] | | | | Mailcode: [id number] | [place], [place] | | | | | [facility] | [address] | | | | | [address] [place], [place] | [phone] | | | | | [address] | | | | | | [phone] | | | +--------+---------+ + + + [...] Ms. Meehan has been seen in the [facility] emergency dept twice in the last month [...] [facility] | [address] | [place], [place] | | | [facility] | | [address] | | + + + + + documented in this encounter Visit Diagnoses + + | Diagnosis | + + | Chronic abdominal pain - Primary Abdominal pain, unspecified site | + + documented in this encounter
--- OUTSIDE RECORDS SUMMARY | ~2020-02-29 | XMS | Encounter Summary ---
Demographics + + + | Address | [address] | | | [place] [address] | + + + | Home Phone [...] Providers + +------+ + | Care Auto Damage Insurance Appraiser Name | Role | Phone | + +------+ + | Maria Esther Cintron MD | PCP | | + +------+ + Reason for Visit + +--------+ + | Reason | Onset | Comments | | | Date | | + +--------+ + | Other | 02/15/ | Blood test & stool order | | | 2007 | | + +--------+ + | Diarrhea | 02/15/ | | | | 2007 | | + +--------+ + Encounter Details +--------+ + + + + | Date | Type | Department | Care Team | Description | +--------+ + + + + | 02/15/ | Telephone | Dig[facility]ive [facility] | Chris Padgett, | Other (Blood test & | | 2007 | | [place] [address] | [address] | stool order); | | | | Ave Mailcode: [facility] | [facility] | Diarrhea | | | | [place] [facility] | [place], [place] | | | | | and Healing, | [address] | | | | | [place] [address], [facility] | [phone] | | | | | [place], [place] | | | | | | [address] | | | | | | [phone] | | | +--------+ + + + [...] Notes Telephone Encounter - Zachary Sampson - 12/15/2011 9:46 AM PDTThis encounter has been admin istratively closed with the authorization of the [facility] Committee. elephone Encounter - Kenisha Sams - 02/22/2008 8:42 AM PDTThese orders were faxed over to Dr. Smith.Scott moreau signed by Kenisha Melton at 02/22/2008 8:42 AM PDTTelephone Encounter - Diaz Macedo - 02/16/2008 10:04 AM PDTBelinda Meehan calling to get her orders faxed to her P CP . She states she spoke with Shadia Melton-INVESTIGATIONS DIRECTOR to have Blood test & Stool sample request for her diarrhea order. She would like to be notified when this order has been faxed . Pain Scale: na Recent Surgery or Procedure: no Pharmacy: Pharmacy Preferences: [facility] [address] [place] [address] 9AM-9PM MON-FRI / 9AM-7PM SAT / 10AM-6PM SUN documented in this enc ounter Plan of Treatment Not on filedocumented as of this encounter Visit Diagnoses Not on filedocumented in this encounter"
--- OUTSIDE RECORDS SUMMARY | ~2020-02-29 | XMS | Encounter Summary ---
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 Local PT [...] note might be different from lesli gomez. 03/03/2008 Belinda Meehan is a 48 y.o. female [facility] [...] be ing reviewed by Dr Constantino SHEEHAN staff mine warfare officer. MRI of the brain and it was normal A Brief Pain Inventory and a pain drawing has be completed, which I reviewed. [facility] Brief Pain Inventory: (ten= worst possible pain [...] Ogden PhD TPI every 5-6 months with [facility] Rheumatology Hilda Saenz Review of Systems: Bones, [...] history, fam bijan history, or social history. [facility] Encorinology [facility] ACNP ThuNovember 12, 2007 Assessment: 1) Hypothyroidism [...] contributing to her hypotension. She needs g ojayden a PCP. We will continue to discuss with her options at [facility] with, hopefully, coordinatio n of services. RTC [...] 300 mg) by oral route once daily sxodysijlb-vpmtwyarbmwoq-pkwoguit (FIORICET) 50-325-40 mg Oral Tablet take 2 [...] DISK BULGE. Transcribed By: Armaan Mata : [id number] : 1442 Approved By: Radiologist: Physical Examination: [...] any concerns or questions. DELFINA MOLINA [facility] Mail code CH 4P [facility] [address] [facility] [address] Ailyn Foster - 03/03/20 08 10:24 AM PDTCMA History: PMH/PSH/SH/FH review 1. Has [...] no documented in this encounter Miscellaneous Notes Maryse - Vilma Gibbons - 03/22/2008 8:21 AM PDT documented in this encounter Plan of Treatment [...]
--- OUTSIDE RECORDS SUMMARY | ~2020-02-29 | XMS | Encounter Summary ---
Demographics + + + | Address | [address] | | | [place] [address] | + + + | Home Phone [...] Providers + +------+ + | Care Executive Meeting Manager Name | Role | Phone | [...] of this encounter Progress Notes Interface, Service Unit Operator In - 01/12/2005 10:09 AM PDT [id number] GEOVANNI BELINDA [facility] Date: 12/11/2004 Clinic: [...] sent to Ms. Meehan' home address at [address] [address]. The address was confirmed with Ms. Meehan prior to sending. Ms. Meehan has a followup appointment in Dr. Padgett's clinic on December 19, 2004. Nathalia Richard R.N., B.S.N. Liliya Kirkpatrick. / [id number] / [id number] / [id number] / Electronically signed by Nuris Chapman 12-20-2004 05:05:06 PM documented i n this encounter Plan of Treatment Not on filedocumented as of this encounter Visit Diagnoses Not on filedocumented in this encounter"
--- OUTSIDE RECORDS SUMMARY | ~2020-02-29 | XMS | Encounter Summary ---
Demographics + + + | Address | [address] | | | [place] [address] | + + + | Home Phone [...] Team Providers + +------+ + | Care Ethnoarchaeology Professor Name | Role | Phone | [...] | | Order | Loop [facility] | [place], [place] | | | | | [facility] | [address] | | | | | [place], [place] | [phone] | | | | | [address] | | | | | | [phone] | | | +--------+ + + + [...]
--- OUTSIDE RECORDS SUMMARY | ~2020-02-29 | XMS | Encounter Summary ---
Demographics + + + | Address | [address] | | | [place] [address] | + + + | Home Phone [...] Team Providers + +------+ + | Care Dog Boarder Name | Role | Phone | + +------+ + | Petrona Thapa | PCP | | | MD | | | + +------+ + Encounter Details +--------+ + + + + | Date | Type | Department | Care Team | Description | +--------+ + + + + | 09/06/ | Abstract | [facility] | Phyllis, | | | 2018 | | GASTROENTEROLOGY | MD [address] | | | | | [address] [facility] | Sulma Boyd | | | | | [address] | [facility] [place] [address] | | | | | [address] | | | | | | [phone] | | | +--------+ + + + [...] | | | | | [place] [address] | | | | | | [phone] | | | | | | | [...]
--- OUTSIDE RECORDS SUMMARY | ~2020-02-29 | XMS | Encounter Summary ---
Demographics + + + | Address | [address] | | | [place] [address] | + + + | Home Phone [...] Team Providers + +------+ + | Care Ballet Soloist Name | Role | Phone | + +------+ + | Petrona Thapa | PCP | | | MD | | | + +------+ + Reason for Visit + +--------+ + | Reason | Onset | Comments | | | Date | | + +--------+ + | Medication Refill | 01/12/ | | | | 2017 | | + +--------+ + Encounter Details +--------+--------+ + + + | Date | Type | Department | Care Team | Description | +--------+--------+ + + + | 01/12/ | Refill | [facility] | Alanis, | Medication Refill | | 2017 | | [facility] [address] | MD Petrona | | | | | [place], | [address] [place] | | | | | [place] [address] | [place] [address] | | | | | [phone] | [phone] | | | | | | | [...] | | | | | [place] [address] | | | | | | [phone] | | | | | | | | +--------+---------+ + + + documented as of this encounter Visit Diagnoses Not on filedocumented in this encounter"
--- OUTSIDE RECORDS SUMMARY | ~2020-02-29 | XMS | Encounter Summary ---
Demographics + + + | Address | [address] | | | [place] [address] | + + + | Home Phone [...] Providers + +------+ + | Care Environmental Protection Specialist Name | Role | Phone | + +------+ + | Pedrito Gutierrez MD | PCP | | + +------+ + Encounter Details +--------+---------+ + + + | Date | Type | Department | Care Team | Description | +--------+---------+ + + + | 02/01/ | Office | Digestive Health | Chris Padgett, | Status Post | | 2006 | Visit | [place] [address] | [address] | Bariatric Surgery; | | | | Ave Mailcode: CH4S | [address] | Follow-Up | | | | [facility] | [place], [place] | Examination | | | | and Healing, | [address] | Following Surgery | | | | Building | [phone] | | | | | Floor [place], [place] | | | | | | [address] | | | | | | [phone] | | | +--------+---------+ + + + [...] of intermittent abdominal pain [facility] f/u evaluation with [...]
--- OUTSIDE RECORDS SUMMARY | ~2020-02-29 | XMS | Encounter Summary ---
Demographics + + + | Address | [address] | | | [place] [address] | + + + | Home Phone [...] Providers + +------+ + | Care Patrol Commander Name | Role | Phone | + [...] + + | 06/25/ | Telephone | [facility] | Alanis, | Illness | | 2017 | | MEDICINE [address] | MD Petrona | | | | | [place], | [address] [facility] | | | | | [place] [address] | [place] [address] | | | | | [phone] | [phone] | | | | | | | [...] at an urgent care or ER in [facility]. Patient understands and accepts. notified of [...] | | | | | [place] [address] | | | | | | [phone] | | | | | | | | +--------+---------+ + + + documented as of this encounter Visit Diagnoses Not on filedocumented in this encounter"
--- OUTSIDE RECORDS SUMMARY | ~2020-02-29 | XMS | Encounter Summary ---
Demographics + + + | Address | [address] | | | [place] [address] | + + + | Home Phone [...] Providers + +------+ + | Care Network Support Engineer Name | Role | Phone | [...] + + | Closed | Specialty | Pain Medicine | Diagnoses | | Pryor, | | | Services | | Chronic | Emmy-Tajt | Manish Crawford, | | | Required | | bilateral | i, | DO [address] | | | | | low back | Sulaiman[address]Russell | [address] | | | | | pain without | , MD [address] | [place], [place] | | | | | sciatica | [address] | [address] | | | | | Lumbar | [place], | Phone: | | | | | stenosis | [place] | [phone] | | | | | Opiate | [address] | Fax: | | | | | dependence, | Phone: | [phone] | | | | | continuous | [phone] | | | | | | ([facility]) | Fax: | | | | | | | [phone] | | +--------+ + + + + + Reason for Visit + + + | Reason | Comments | + + + | Medication Refill | | + + + Encounter Details +--------+---------+ + + + | Date | Type | Department | Care Team | Description | +--------+---------+ + + + | 02/23/ | Office | [facility] INTERNAL | Emmy-Kamlesh, | B12 deficiency | | 2017 | Visit | MEDICINE [address] [place] [address] | MD Petrona | (Primary Dx); | | | | [address], | [address] [facility] | Chronic bilateral | | | | [place] [address] | [place] [address] | low back pain | | | | [phone] | [phone] | without sciatica; | | | | | | Lumbar stenosis; | | | | | | Opiate dependence, | | | | | | continuous (HCC) | +--------+---------+ + + + Social [...] + + + | Blood Pressure | 100/62 | 02/23/2017 10:07 AM | | | | | PDT | | + + + + + | Pulse | 59 | 02/23/2017 10:07 AM | | | | | PDT | | + + + + + | Temperature | 36.5 C (97.7 F) | 02/23/2017 10:07 AM | | | | | PDT | | + + + + + | Respiratory Rate | 16 | 02/23/2017 10:07 AM | | | | | PDT | | + + + + + | Oxygen Saturation | 96% | 02/23/2017 10:07 AM | | | | | PDT | | + + + + + | Inhaled Oxygen | - | - | | | Concentration | | | | + + + + + | Weight | 93.1 kg (205 lb 3.2 | 02/23/2017 10:07 AM | | | | oz) | PDT | | + + + + + | Height | 172.7 cm (5' 8") | 02/23/2017 10:07 AM | | | | | PDT | | + + + + + | Body Mass Index | 31.2 | 02/23/2017 10:07 AM | | | | | PDT | | + + + + + documented in this encounter Patient Instructions Patient Instructions Petrona Thapa MD - 02/23/2017 10:15 AM PDTWe are referr ing you to [facility] in [place]. B12 shot today. documented in this encounter Progress Notes Petrona Thapa MD - 02/23/2017 10:15 AM PDTFormatting of this note might be d ifferent from the original. CHIEF COMPLAINT Chief Complaint Patient presents with Medication Refill HPI Belinda Meehan is a 57 y.o. y/o female who presents today for several issues: She has history of chronic low back pain with lumbar stenosis and has been taking pain medi cations for this as below. She has been on the Butrans pain patch once a week. She has als o taken hydrocodone but she ran out about a week ago. She states she is interested in seein g a pain clinic in [facility] as [place] an [place] resident. No drowsiness confusion or f alls. No alcohol or illicit drugs. She also has history of B12 deficiency and use take B12 injections for it on a monthly basi s. She is interested in getting one today. REVIEW OF SYSTEMS See HPI for further details. Review of systems otherwise negative. PAST MEDICAL HISTORY Past Medical History: Diagnosis Date Arthritis Benign essential hypertension Blind left eye Chronic low back pain 01/04/2015 Chronic neck pain 01/04/2015 Chronic pain COPD (chronic obstructive pulmonary disease) ([facility]) Depression Diarrhea Dumping syndrome Fibromyalgia Hyperparathyroidism ([facility]) Hypothyroidism IBS (irritable bowel syndrome) Lumbar radiculopathy primarily right 01/04/2015 Meniere syndrome Migraine Migraines Obesity OLIVER (obstructive sleep apnea) Osteoarthritis, generalized Osteopenia Osteoporosis Peripheral neuropathy ([facility]) Rheumatoid arthritis ([facility]) Right arm pain 01/04/2015 RLS (restless legs syndrome) S/P lumbar fusion 01/04/2015 Scoliosis Stroke ([facility]) Syncope Tremor FAMILY HISTORY Family History Problem Relation Age of Onset Arthritis Mother High blood pressure Mother Seizures Sister Arthritis Maternal Grandmother High blood pressure Maternal Grandmother Stroke Maternal Grandmother Arthritis Maternal Grandfather Heart disease Maternal Grandfather High blood pressure Maternal Grandfather High blood pressure Paternal Grandmother Heart disease Paternal Grandmother High blood pressure Paternal Grandfather Heart disease Paternal Grandfather SOCIAL HISTORY Social History Social History Marital [...] Date ADENOIDECTOMY APPENDECTOMY BREAST LUMPECTOMY Left 2002 CHOLECYSTECTOMY 2004 GASTRIC BYPASS SURGERY 2004 HYSTERECTOMY JOINT REPLACEMENT Bilateral 2007,2008 SPINE SURGERY TONSILLECTOMY CURRENT MEDICATIONS Current Outpatient Prescriptions Medication Sig Dispense Refill ascorbic acid (VITAMIN C) 500 mg tablet Take 500 mg by mouth Daily. betaxolol (BETOPTIC-S) 0.25% ophthalmic suspension Use twice daily (Patient taking diff erently: Place 1 drop into both eyes 2 times daily.) [START ON 03/23/2017] buprenorphine (BUTRANS) 15 mcg/hr patch Place 1 patch onto the ski n Once a week. 4 patch 0 Calcium Carbonate (CALTRATE 600 PO) TABS: 1 tablet by mouth four times a day (Patient taking differently: Take 2,000 mg by mouth Daily.) cholecalciferol (VITAMIN D-3) 5000 UNITS TABS Take 5,000 Units by mouth Daily. clobetasol (TEMOVATE) 0.05% cream apply topically to affected area twice a day 0 cyanocobalamin (VITAMIN B-12) 1,000 mcg/mL injection Inject 1 mL into the muscle Every 30 days. 1 mL 5 diphenoxylate-atropine (LOMOTIL) 2.5-0.025 mg per tablet Take 1 tablet by mouth 4 times daily as needed for Diarrhea. furosemide (LASIX) 80 mg tablet Take 80 mg by mouth 2 times daily. gabapentin (NEURONTIN) 300 mg capsule Take 3 capsules by mouth 3 times daily. 270 capsu le 3 levothyroxine (SYNTHROID) 75 MCG tablet Take 1 tablet by mouth every morning (before br eakfast). 0 meclizine (ANTIVERT) 25 mg tablet take 1 tablet by mouth three times a day if needed fo r dizziness 0 methocarbamol (ROBAXIN) 750 mg tablet Take 750 mg by mouth 3 times daily. metoprolol tartrate (LOPRESSOR) 25 mg tablet Take 12.5 mg by mouth 2 times daily. 1 Multiple Vitamins-Minerals (COMPLETE WOMENS) TABS 1 tablet by mouth twice daily naloxone (NARCAN) 0.4 mg/mL injection inject subcutaneously ONCE if needed for LETHARGY /OVERDOSE 0 nitroglycerin (NITROSTAT) 0.[address] 0.4 mg under the tongue every 5 minute s as needed for Chest pain. omeprazole (PRILOSEC) 20 mg capsule Take 40 mg by mouth every morning (before breakfast ). ondansetron (ZOFRAN ODT) 4 mg disintegrating tablet Take 4 mg by mouth every 6 hours as needed for Nausea. potassium chloride (KLOR-CON) 20 MEQ packet 3 TABS IN AM AND 2 TABS IN PM rOPINIRole (REQUIP) 1 mg tablet Take 2 mg by mouth nightly. sucralfate (CARAFATE) 1 g tablet Take 1 g by mouth 4 times daily. (Patient taking diffe rently: Take 2 g by mouth 4 times daily.) topiramate (TOPAMAX) 50 MG tablet Take 50 mg by mouth 2 times daily. torsemide (DEMADEX) 5 mg tablet Take 5 mg by mouth Daily. 5 DAYS A WEEK travoprost (TRAVATAN Z) 0.004% ophthalmic solution 1 drop nightly. zoledronic acid (RECLAST) 5 mg/100 mL SOLN Inject 5 mg into the vein once. YEARLY No current facility-administered medications for this visit. ALLERGIES Allergies Allergen Reactions Levofloxacin Hives and Itching Amitriptyline Hcl Slvvqjykfi-Wkuw-Jlujkjml Cephalexin Ciprofloxacin Clarithromycin Clindamycin Hcl Codeine Sulfate Ketorolac Hives Levofloxacin Morphine Penicillins Sulfamethoxazole-Trimethoprim Tramadol Hcl PHYSICAL EXAM VITAL SIGNS: BP 100/62 | Pulse 59 | Temp 36.5 C (97.7 F) (Temporal) | Resp 16 | Ht 1.727 m (5' 8") | Wt 93.1 kg (205 lb 3.2 oz) | SpO2 96% | BMI 31.20 kg/m Constitutional: Well developed, Well nourished, No acute distress, Pleasant female. Cardiovascular: Regular rate & rhythm, No murmurs, No rubs, No gallops. No peripheral edema . Thorax & Lungs: Normal breath sounds, No respiratory distress, No wheezing, No rubs. Skin: Warm, Dry, No erythema, No rash. Musculoskeletal: Decreased range of motion in her lower back with no spinal deformities. Neurologic: Alert & oriented x 3, Normal motor function, Normal sensory function, No focal deficits noted. CN II-XII intact. Psychiatric: Affect normal, Judgment normal, Mood normal. ASSESSMENT & PLAN 1. Chronic bilateral low back pain without sciatica I discussed with her my impression that continuing with the patch only for now would be saf er and better until she can see a pain specialist. I gave prescriptions for Butrans for 2 m onths. She will can continue with Tylenol up to 3 g a day as well as gabapentin as above. - Pain Clinic, External - AMB Referral; Future - buprenorphine (BUTRANS) 15 mcg/hr patch; Place 1 patch onto the skin Once a week. Dispen se: 4 patch; Refill: 0 - gabapentin (NEURONTIN) 300 mg capsule; Take 3 capsules by mouth 3 times daily. Dispense: 270 capsule; Refill: 3 2. Lumbar stenosis Referred to pain clinic as below. - Pain Clinic, External - AMB Referral; Future - buprenorphine (BUTRANS) 15 mcg/hr patch; Place 1 patch onto the skin Once a week. Dispen se: 4 patch; Refill: 0 3. Opiate dependence, continuous (HCC) - Pain Clinic, External - AMB Referral; Future 4. B12 deficiency B12 injection today if covered by insurance. FOLLOW-UP Return in about 2 months (around 04/25/2017). documente d in this encounter Miscellaneous Notes Addendum Note - Nuris Landon RN - 02/23/2017 10:15 AM PDT Addended by: ISIDRA LANDON on: 02/23/2017 11:19 Modules accepted: Orders documented in this encounter Plan of Treatment +--------+---------+ + + + | Date | Type | Specialty | Care Team | Description | +--------+---------+ + + + | 05/17/ | Office | Internal Medicine | EmmyAlberto, | | | 2019 | Visit | | MD Petrona | | | | | | [address] [place] | | | | | | [place] [address] | | | | | | [phone] | | | | | | | | +--------+---------+ + + + + + +--------+ + + | Name | Type | Priori | Associated Diagnoses | Order Schedule | | | | ty | | | + + +--------+ + + | Pain Clinic, | Outpatient | Routin | Chronic Bilateral | Expected: | | External - AMB | Referral | e | Low Back Pain | 03/25/2017, Expires: | | Referral | | | Without Sciatica | 02/23/2018 | | | | | Lumbar stenosis | | | | | | Opiate dependence, | | | | | | continuous (HCC) | | + + +--------+ + + documented as of this encounter Visit Diagnoses + + | Diagnosis | + + | B12 deficiency - Primary Other B-complex deficiencies | + + | Chronic bilateral low back pain without sciatica | + + | Lumbar stenosis Spinal stenosis, lumbar region, without neurogenic claudication | + + | Opiate dependence, continuous (HCC) Opioid type dependence, continuous | + + documented in this encounter
--- OUTSIDE RECORDS SUMMARY | ~2020-02-29 | XMS | Encounter Summary ---
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 08/13/2007 Belinda Meehan is a 47 y.o. female [facility] [...] drawing has be completed, which I reviewed. DIRECTOR OF ENTERPRISE STRATEGY Brief Pain Inventory: Right Now: 9 Least [...] Physical therapy: Two days per week in [place] knees and both legs, shoulders and back [...] social history. Pending 08/30/07 DR Cadet in [facility]: right knee arthroplasty. Urology evaluation for ur [...] Collection Time Resulting Agency 05/25/2007 4:06 PM [facility] DEPARTMENT OF RADIOLOGY Component Results MR CERVICAL [...] with any concerns or questions. DELFINA MOLINA [facility] Mail code CH 4P [facility] [address] [place] [address] Ailyn Bello - 08/13/19 08 8:52 AM PSTCMA History: PMH/PSH/SH/FH [...]
--- OUTSIDE RECORDS SUMMARY | ~2020-02-29 | XMS | Encounter Summary ---
Demographics + + + | Address | [address] | | | [place] [address] | + + + | Home Phone [...] Providers + +------+ + | Care Ship Steward Name | Role | Phone | [...] | | Required | | paroxysmal | [address] | | | | | positional | [address] | [address] | | | | | vertigo, | [place], | [place], [place] | | | | | unspecified | [place] [address] | [address] | | | | | laterality | Phone: | Phone: | | | | | | [phone] | [phone] | | | | | | Fax: | Fax: | | | | | | [phone] | [phone] | +--------+ + + + + + Encounter Details +--------+ + + + + | Date | Type | Department | Care Team | Description | +--------+ + + + + | 12/22/ | Orders Only | [facility] [place] | Ulysses Genao MD | Benign paroxysmal | | 2019 | | OTOLARYNGOLOGY [address] | [address] | positional vertigo, | | | | [address] | [address] [place] | unspecified | | | | [place] | [address] | laterality (Primary | | | | [address] | | Dx) | | | | [phone] | | | +--------+ + + + [...] | | | | | [place] [address] | | | | | | [phone] | | | | | | | | +--------+---------+ + + + + + +--------+ + + | Name | Type | Priori | Associated Diagnoses | Order Schedule | | | | ty | | | + + +--------+ + + | * [facility] [place] | Outpatient | Routin | Benign [...]
--- OUTSIDE RECORDS SUMMARY | ~2020-02-29 | XMS | Encounter Summary ---
[...] Team Providers + +------+ + | Care Biztalk Developer Name | Role | Phone | + +------+ + | Crystal Gutierrez MD | PCP | | + +------+ + Encounter Details +--------+ + + + + | Date | Type | Department | Care Team | Description | +--------+ + + + + | 09/14/ | Procedure - | [facility] Division of | Endoscopy, Gi | EGD | | 2008 | | Gastroenterology/Hep | | (esophagogastroduode | | | Transcribed | atology [address] | | noscopy) | | | | [address] | | | | | | Mailcode: [id number] | | | | | | [place] | | | | | | [address] | | | | | | [place], [place] | | | | | | [address] | | | | | | [phone] | | | +--------+ + + + [...] AM PDTAssociated Order(s): EGD PROCEDURES:PANENDOSCOPY (EGD) CPT: [id number]. PERSONNEL:THE ATTENDING PHYSICIAN WAS PRESENT DURING THE [...] + + + | PROCEDURES:PANENDOSCOPY (EGD) CPT: [id number]. PERSONNEL:THE | | | ATTENDING PHYSICIAN WAS [...] AM PDT | | PROCEDURES:PANENDOSCOPY (EGD) CPT: [id number]. | | PERSONNEL:THE ATTENDING PHYSICIAN WAS PRESENT [...]
--- OUTSIDE RECORDS SUMMARY | ~2020-02-29 | XMS | Encounter Summary ---
Demographics + + + | Address | [address] | | | [place] [address] | + + + | Home Phone [...] Team Providers + +------+ + | Care Process Supervisor Name | Role | Phone | [...] + + | 02/03/ | Refill | [facility] | Alanis, | Medication Refill | | 2017 | | MEDICINE [address] | MD Petrona | | | | | [place], | [address] [facility] | | | | | [place] [address] | [place] [address] | | | | | [phone] | [phone] | | | | | | | [...] | | | | | [place] [address] | | | | | | [phone] | | | | | | | | +--------+---------+ + + + documented as of this encounter Visit Diagnoses Not on filedocumented in this encounter"
--- OUTSIDE RECORDS SUMMARY | ~2020-02-29 | XMS | Encounter Summary ---
Demographics + + + | Address | [address] | | | [place] [address] | + + + | Home Phone [...] Providers + +------+ + | Care Pot Fluxer Name | Role | Phone | + [...] | at [facility] [place] | [facility] | | | | | [address] | [place] [address] | | | | | [address] | | | | | | [place], [address]nd floor | | | | | | [place], [place] | | | | | | [address] | | | | | | [phone] | | | +--------+ + + + [...]
--- OUTSIDE RECORDS SUMMARY | ~2020-02-29 | XMS | Encounter Summary ---
Demographics + + + | Address | [address] | | | [place] [address] | + + + | Home Phone [...] Providers + +------+ + | Care Barrel Stave Inspector Name | Role | Phone | [...] | Bone | Diagnoses | Anika Meeks | | | | Densitometry | Osteopenia | MD Beto | Bonedensity | | | | | Procedures | [address] | [facility] [address] | | | | | CONSULT TO | Bethanie | [address] [place] | | | | | BONE | [place], [place] | Clementina Winkler | | | | | DENSITOMETRY | [address] | Mailcode: | | | | | | Phone: | RODERICK Eduardo | | | | | | [phone] | [address] [place] | | | | | | Fax: | [place], [place] | | | | | | [phone] | [address] | | | | | | | Phone: | | | | | | | [phone] | | | | | | | Fax: | | | | | | | [phone] | +--------+--------+ + + + + Reason for Visit +--------+--------+ + | Reason | Onset | Comments | | | Date | | +--------+--------+ + | Other | 05/29/ | | | | 2007 | | +--------+--------+ + Encounter Details +--------+ + + + + | Date | Type | Department | Care Team | Description | +--------+ + + + + | 05/29/ | Telephone | [facility] | Beto Meeks MD | Other | | 2007 | | [facility] | [address] | | | | | [place] [facility] | [place], [place] | | | | | [address] | [address] | | | | | [address] | [phone] | | | | | [facility] | | | | | | Physician's | | | | | | Pavilion [place], | | | | | | [place] [address] | | | | | | [phone] | | | +--------+ + + + [...] this encounter Miscellaneous Notes Telephone Encounter - Beto Meeks - 05/31/2008 11:36 PM PSTBMD has been ordered to be done at [facility] - she can do it on the day of her appointment elephone Encounter - Sia Whitehead - 05/29/2008 11:50 AM PSTPt c juan miguel and wants to know if PBD wants her to get a BMD done before her next visit. She is sc heduled 07/25/08 documente d in this encounter Plan of Treatment Not on filedocumented as of this encounter Visit Diagnoses + + | Diagnosis | + + | Osteopenia - Primary Disorder of bone and cartilage, unspecified | + + documented in this encounter"
--- OUTSIDE RECORDS SUMMARY | ~2020-02-29 | XMS | Encounter Summary ---
Demographics + + + | Address | [address] | | | [place] [address] | + + + | Home Phone [...] Providers + +------+ + | Care Maintenance Helper Name | Role | Phone | [...] | | | | Clinical Nutrition | [place], [place] | | | | | [address] | [address] | | | | | Loop Mailcode: [id number] | [phone] | | | | | Outpatient Clinic | | | | | | [facility] | | | | | | [place] [address] | | | | | | [phone] | | | +--------+ + + + [...] Blood Test performed by | | | [facility]. | | + + + + + + + + | Performing | Address | City/State/Zipcode | Phone Number | | Organization | | | | + + + + + | [facility] | [address] | [place] [address] | | | LABORATORY | | | [...] + + + + + | [facility] | [address] | [place] [address] | | | LABORATORY | | | | + + + + + documented in this encounter Visit Diagnoses Not on filedocumented in this encounter"
--- OUTSIDE RECORDS SUMMARY | ~2020-02-29 | XMS | Encounter Summary ---
Demographics + + + | Address | [address] | | | [place] [address] | + + + | Home Phone [...] Team Providers + +------+ + | Care Search Strategist Name | Role | Phone | + [...] + + | 04/25/ | Refill | [facility] | Alanis, | Medication Refill | | 2016 | | MEDICINE [address] | MD Petrona | | | | | [place], | [address] [facility] | | | | | [place] [address] | [place] [address] | | | | | [phone] | [phone] | | | | | | | [...] supplies. [facility]letonElectronically signed by Tamara Elliott RN a [...] | | | | | [place] [address] | | | | | | [phone] | | | | | | | | +--------+---------+ + + + documented as of this encounter Visit Diagnoses Not on filedocumented in this encounter"
--- OUTSIDE RECORDS SUMMARY | ~2020-02-29 | XMS | Encounter Summary ---
Demographics + + + | Address | [address] | | | [place] [address] | + + + | Home Phone [...] Team Providers + +------+ + | Care Pulmonologist/Intensivist Name | Role | Phone | + [...] | | | | [address] | [place], [place] | | | | | [address] | [address] | | | | | [place], [place] | [phone] | | | | | [address] | | | | | | [phone] | | | +--------+ + + + [...]
--- OUTSIDE RECORDS SUMMARY | ~2020-02-29 | XMS | Encounter Summary ---
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 [address]12 | [address] | [place], [place] | | | | | nutritional | [place], [place] | [address] | | | | | deficiency | [address] | Phone: | | | | | Other | Phone: | [phone] | | | | | protein-jose manuel | [phone] | Fax: | | | | | nick | Fax: | [phone] | | | | | malnutrition | [phone] | | | | | | Weight | | | | | | | gain | | | | | | | Procedures | | | | | | | CONSULT TO | | | | | | | ENDO | | | | | | | [address] | | | | | | | [address] | | | +--------+--------+ + + + [...] | | | [facility] | [place], [place] | Metabolic syndrome X | | | | [address] | [address] | 250.80; Essential | | | | [address] | [phone] | hypertension 401.9; | | | | [facility] | | IGT (impaired | | | | Physician's | | glucose tolerance) | | | | Pavilion [place], | | | | | | [place] [address] | | | | | | [phone] | | | +--------+---------+ + + + [...] month in the pain center her at [facility], so she is hoping to find an [...] Hives Mainly in the legs Clindamycin Codeine Ovwtuof-Rifsvfcvvt-Rlc-Caff Balance problems Fioricet W/Codeine (Nwyhpjotsi-Dkljgecdku-Fns-Cod) Keflex (Cephalexin) Morphine IM ( only in [facility]) made gut pain worse 08/27/06: [...] U/L 41 ANION GAP 8 VITAMIN B12, [id number] pg/ml >2000 (H) HEMOGLOBIN A1C <=5.6 % [...] SERUM 15.0-85.0 pg/ml 222.9 (H) VITAMIN B12, [id number] pg/ml > 2000 HEMOGLOBIN A1C <=5.6 % [...]
--- OUTSIDE RECORDS SUMMARY | ~2020-02-29 | XMS | Encounter Summary ---
Demographics + + + | Address | [address] | | | [place] [address] | + + + | Home Phone [...] Team Providers + +------+ + | Care Melter Operator Name | Role | Phone | [...] Specialty | Physical | Diagnoses | | Ulysses Genao | | | Services | Medicine and | Chronic | Emmy-Jefft | Sid Wilson MD [address] | | | Required | Rehabilitatio | bilateral | i, | [address] | | | | n | low back | Sulaiman-Gily | [place], | | | | | pain with | MD [address] | [place] [address] | | | | | left-sided | [address] | Phone: | | | | | sciatica | [place], | [phone] | | | | | Muscle spasm | [place] | Fax: | | | | | | [address] | [phone] | | | | | Fibromyalgia | Phone: | | | | | | | [phone] | | | | | | | Fax: | | | | | | | [phone] | | +--------+ + + + + + Reason for Visit + + + | Reason | Comments | + + + | Follow-up | 2 month | + + + Encounter Details +--------+---------+ + + + | Date | Type | Department | Care Team | Description | +--------+---------+ + + + | 05/04/ | Office | [facility] | Alanis, | Chronic bilateral | | 2017 | Visit | MEDICINE [address] | MD John | low back pain with | | | | [address] [place], | [address] [facility] | left-sided sciatica | | | | [place] [address] | [place] [address] | (Primary Dx); Muscle | | | | [phone] | [phone] | spasm; | | | | | | Fibromyalgia; Left | | | | | | hip pain | +--------+---------+ + + + Social [...] + + + | Blood Pressure | 102/66 | 05/04/2017 2:41 PM | | | | | PST | | + + + + + | Pulse | 81 | 05/04/2017 2:41 PM | | | | | PST | | + + + + + | Temperature | 36.9 C (98.5 F) | 05/04/2017 2:41 PM | | | | | PST | | + + + + + | Respiratory Rate | 16 | 05/04/2017 2:41 PM | | | | | PST | | + + + + + | Oxygen Saturation | 96% | 05/04/2017 2:41 PM | | | | | PST | | + + + + + | Inhaled Oxygen | - | - | | | Concentration | | | | + + + + + | Weight | 97.9 kg (215 lb 13.3 | 05/04/2017 2:41 PM | | | | oz) | PST | | + + + + + | Height | - | - | | + + + + + | Body Mass Index | 32.82 | 02/23/2017 10:07 AM | | | | | PDT | | + + + + + documented in this encounter Patient Instructions Patient Instructions John Thapa MD - 05/04/2017 3:17 PM PST Understanding Fibromyalgia People with fibromyalgia tend to have at least 11 of the 18 tender points shown above. Fibromyalgia is a condition that causespain at specific pointson the body,stiffness, and fatigue. What are the symptoms of fibromyalgia? In most cases, you will have tender points on your body. These points are very sore, especi ally when touched. Finding several of these points helps your healthcare provider diagnose f ibromyalgia. Along with the tender points, you may have some or all of the following symptoms: Constant tiredness (fatigue), even after a full night s sleep (non-restorative sleep) A burning or throbbing pain in many parts of the body (this pain may vary during the day ) Stiffness or aching all over your body Numbness or tingling in your arms and legs Trouble sleeping Bowel problems (bloating, diarrhea, constipation) Headaches Depression How is fibromyalgia diagnosed? There is no lab test to diagnosefibromyalgia. Instead, your healthcare provider will take your health history and examine your joints and muscles. Certain criteria are used when lawrence gnosing fibromyalgia. Symptoms need to be present for at least 3 months. Tests may be done t o rule out other conditions with similar symptoms.Then, together you can design a plan to help you manage your symptoms. How is fibromyalgia treated? Several medications are approved to treat fibromyalgia. Two were originally made to treat d epression. They are duloxetine, andmilnacipran.A third, called pregaballin, was develope d to treat nerve pain. Certain medicines used to treat depression have been helpfulwith fi bromyalgia. Other medications include pain relievers such as acetaminophen or stronger narco tics. These may be prescribed short term. NSAIDs (nonsteroidal anti-inflammatory drugs) including aspirin, ibuprofen, and naproxen ar e used to relieve pain. Getting enough sleep, regular exercise, and eating a healthy diet can help manage symptoms. Cognitive behavioral therapy (a form of psychotherapy) can be helpful for fibromyalgia. Peter e people find alternative treatments such as massage, chiropractic treatments, biofeedback, or acupuncture also help with symptoms. Date Last Reviewed: 07/29/201519999305-4844 [employer]. [address] [place] [address], [place] [address]. All righ ts reserved. This information is not intended as a substitute for professional medical care. Always follow your healthcare professional's instructions. documented in this encounter Progress Notes John Thapa MD - 05/04/2017 2:30 PM PSTFormatting of this note might be d ifferent from the original. CHIEF COMPLAINT Chief Complaint Patient presents with Follow-up 2 month HPI Belinda Meehan is a 57 y.o. y/o female who presents today for several issues: She states she's been hurting a lot lately despite receiving pharmacotherapy for the pain c nicolelong would Butrans at high-dose and gabapentin 1200 mg 3 times a day. She states she aches everywhere in her back and in her limbs and she especially points to her left hip area on t he lateral side where she states she has PAIN since she fell 2 months ago. She is able to p ut pressure on that hip and walk. She would like an x-ray. She states she is worried that she may have rheumatoid arthritis. She hasn't had any joint swelling or tenderness in the small joints of her hands. She is willing to go see a specialist to discuss other treatment options than her current p ain regimen. REVIEW OF SYSTEMS See HPI for further details. Review of systems otherwise negative. PAST MEDICAL HISTORY Past Medical History: Diagnosis Date Arthritis Atypical chest pain Benign essential hypertension Blind left eye Cervical radiculopathy Chronic low back pain 01/04/2015 Chronic neck pain 01/04/2015 Chronic pain Chronic venous insufficiency Coccydynia COPD (chronic obstructive pulmonary disease) ([facility]) Depression Diarrhea Dumping syndrome Fatigue fracture of vertebra Fibromyalgia Glaucoma Hyperparathyroidism ([facility]) Hypothyroidism IBS (irritable bowel syndrome) Idiopathic scoliosis Leg edema Lumbar postlaminectomy syndrome Lumbar radiculopathy primarily right 01/04/2015 Meniere syndrome Migraines Muscle cramping Muscle spasm Myalgia Nonalcoholic hepatosteatosis Obesity Opiate dependence ([facility]) Orthostatic hypotension OLIVER (obstructive sleep apnea) Osteoarthritis, generalized Osteopenia Osteoporosis Peripheral neuropathy ([facility]) Rheumatoid arthritis ([facility]) Right arm pain 01/04/2015 RLS (restless legs syndrome) S/P lumbar fusion 01/04/2015 Scoliosis Spondylosis with myelopathy, lumbar region Stroke ([facility]) Syncope Tremor Type II or [...] RELEASE 2002 CHOLECYSTECTOMY 2004 FINGER TRIGGER RELEASE 2002 FINGER TRIGGER RELEASE [...] into both eyes 2 times daily.) buprenorphine (BUTRANS) 20 mcg/hr patch Place 1 patch onto the skin Once a week. Calcium Carbonate (CALTRATE 600 PO) TABS: 1 [...] as needed for Diarrhea. 120 tablet 3 furosemide (LASIX) 80 mg tablet Take 1 tablet by mouth 2 times daily. 180 tablet 1 gabapentin (NEURONTIN) 300 mg capsule Take 3 capsules by mouth 3 times daily. (Patient taking differently: Take 1,200 mg by mouth 3 times daily.) 270 capsule 3 levothyroxine (SYNTHROID) 75 MCG tablet Take 1 tablet by mouth every morning (before br eakfast). 90 tablet 1 meclizine (ANTIVERT) 25 mg tablet take 1 [...] every evening with food 450 tablet 1 potassium chloride (KLOR-CON) 20 MEQ packet 3 [...] tablet 5 torsemide (DEMADEX) 5 mg tablet Take 5 [...] Days Morelia Thapa MD 1,000 mcg at 05/04/17 1713 ALLERGIES Allergies Allergen Reactions Codeine Sulfate Nausea Only Levofloxacin Hives, Itching and Rash Amitriptyline Hcl Other (See Comments) Confused and questionable for seizures Eklrurqftd-Kxsk-Dxwdkggq Cephalexin Hives Ketorolac Hives Morphine Swelling Tramadol Hcl Nausea Only Jsoxkiuyge-Aefd-Dirccovx Hives and Rash Ciprofloxacin Hives and Rash Clarithromycin Hives and Rash Clindamycin Hcl Hives and Rash Doxycycline Rash Levofloxacin Hives and Rash Penicillins Hives and Rash Sulfamethoxazole-Trimethoprim Hives and Rash PHYSICAL EXAM VITAL SIGNS: BP 102/66 | Pulse 81 | Temp 36.9 C (98.5 F) | Resp 16 | Wt 97.9 kg (21 5 lb 13.3 oz) | SpO2 96% | BMI 32.82 kg/m Constitutional: Well developed, Well nourished, No [...] Warm, Dry, No erythema, No rash. Musculoskeletal: Tenderness on palpation of multiple spots in her back and proximal limbs e specially on the left lower extremity on the lateral hip area. No obvious spinal deformitie s or joint swelling or increased local temperature. Neurologic: Alert & oriented x 3, Normal motor function, Normal sensory function, No focal deficits noted. CN II-XII intact. Psychiatric: Affect normal, Judgment normal, Mood normal. ASSESSMENT & PLAN 1. Chronic bilateral low back pain with left-sided sciatica - * [facility] Physiatry - AMB Referral; Future - CBC with Differential; Future - Comprehensive Metabolic Panel; Future - TSH; Future - CK Total; Future - C-Reactive Protein; Future 2. Muscle spasm - * [facility] Physiatry - AMB Referral; Future - CBC with Differential; Future - Comprehensive Metabolic Panel; Future - TSH; Future - CK Total; Future - C-Reactive Protein; Future - methocarbamol (ROBAXIN) 750 mg tablet; take 1 tablet by mouth twice a day Dispense: 60 t ablet; Refill: 3 3. Fibromyalgia - * [facility] Physiatry - AMB Referral; Future - CBC with Differential; Future - Comprehensive Metabolic Panel; Future - TSH; Future - CK Total; Future - C-Reactive Protein; Future 4. Left hip pain - XR Hip Left 2-3 Views; Future FOLLOW-UP No Follow-up on file. Note: Parts of this documentwere created using [employer] speech recognition software. As a r esult, there may be unintended word spelling errors. Every attempt was made to correct the dictation. doshantelle colin in this encounter Miscellaneous Notes Addendum Note - John Thapa MD - 05/04/2017 2:30 PM PST Addended by: JOHN HOPKINS on: 05/04/2017 17:33 Modules accepted: Orders dojannet barrera in this [...] | | | | | [place] [address] | | | | | | [phone] | | | | | | | [...] e | low back pain with | 05/04/2017, Expires: | | | | | left-sided sciatica | 05/04/2018 | + +---------+--------+ + + + + +--------+ + + | Name | Type | Priori | Associated Diagnoses | Order Schedule | | | | ty | | | + + +--------+ + + | * [facility] [place] | Outpatient | Routin | Chronic Bilateral | Expected: | | Physiatry - AMB | Referral | e | Low Back Pain With | 05/04/2017, Expires: | | Referral | | | Left-Sided Sciatica | 05/04/2018 | | | | | Muscle spasm | | | | | | Fibromyalgia | | + + +--------+ + + documented as of this encounter Procedures + +--------+ + + + | Procedure Name | Priori | Date/Time | Associated Diagnosis | Comments | | | ty | | | | + +--------+ + + + | IMAGING REPORT - | | 05/08/2017 | | Results for this | | EXTERNAL SCAN | | 12:00 AM | | procedure are in the | | | | PST | | results section. | + +--------+ + + + documented in this encounter Results IMAGING REPORT - EXTERNAL SCAN (05/08/2017 12:00 AM PST) + + + | Narrative | Performed At | + + + | Ordered by an | | | unspecified provider. | | + + + XR Hip Left 2-3 Views (05/04/2017 3:50 [...] | | | + +---------+ + + C-Reactive Protein (05/04/2017 3:42 PM PST) + +-------+ + + + | Component | Value | Ref Range | Performed | Pathologist | | | | | At | Signature | + +-------+ + + + | CRP | 0.48 | <8.00 mg/L | [facility] | | | | | [...] + | [facility] | [address] | [place] | [phone] | | [facility] | | [address] | | | - LABORATORY | | | | + + + + + CK Total (05/04/2017 3:42 PM PST) + +-------+ + + + | Component | Value | Ref Range | Performed | Pathologist | | | | | At | Signature | + +-------+ + + + | CK TOTAL | 168 | 22 - 269 U/L | [facility] | | | | | | STYudy [...] [address] | [place] | [phone] | | [facility] | | [address] | | | - LABORATORY | | | | + + + + + TSH (05/04/2017 3:42 PM PST) + + + + + + | Component | Value | Ref Range | Performed | Pathologist | | | | | At | Signature | + + + + + + | TSH | 0.79Comment: All TSH | 0.34 - 5.60 | [facility] | | | | samples are screened | uIU/mL | [facility] | | | | using a 2nd Generation | | MEDICAL | | | | test, and are reflexed | | CENTER - | | | | to a 3rd Generation test | | LABORATORY | | | | if indicated. | | | | + + + + + + + + | Specimen | + + | Blood | + + + + + + + | Performing | Address | City/State/Zipcode | Phone Number | | Organization | | | | + + + + + | [facility] | [address] | [place] | [phone] | | [facility] | | [address] | | | - LABORATORY | | | | + + + + + Comprehensive Metabolic Panel (05/04/2017 3:42 PM PST) + + + + + [...] + + + + | K | 4.0 | 3.5 - 5.1 | [facility] | [...] + + + + | CO2 | 29 | 24 - 31 mmol/L | [facility] | | | | | | [facility] | | | | | | MEDICAL | | | | | | CENTER - | | | | | | LABORATORY | | + + + + + + | Anion Gap | 7 | 3 - 16 mmol/L | [facility] | | | | | | [facility] | | | | | | MEDICAL | | | | | | CENTER - | | | | | | LABORATORY | | + + + + + + | Glucose | 106 | 70 - 109 mg/dL | [facility] | | | | | | [facility] | | | | | | MEDICAL | | | | | | CENTER - | | | | | | LABORATORY | | + + + + + + | BUN | 6 (L) | 7 - 18 mg/dL | [...] eGFR, | >60Comment: GLOMERULAR | >=60 | [facility] | | | non- | FILTRATION | mL/min/1.73m2 | [facility] | | | Thai | RATE,ESTIMATED | | MEDICAL | | | | mL/min/1.01r0Mzqo than | | CENTER - | | [...] 4.1 | 3.2 - 5.0 g/dL | [facility] | | | | | | [facility] | | | | | | MEDICAL | | | | | | CENTER - | | | | | | LABORATORY | | + + + + + + | Bilirubin | 0.8 | 0.1 - 1.5 mg/dL | [facility] | | | Total | | | [facility] | | | | | | MEDICAL | | | | | | CENTER - | | | | | | LABORATORY | | + + + + + + | Total | 6.6 | 6.0 - 7.8 g/dL | [facility] | | | Protein | | | [facility] | | | | | | MEDICAL | | | | | | CENTER - | | | | | | LABORATORY | | + + + + + + | AST | 41 | 10 - 42 U/L | [facility] [...] + + + + | Alkaline | 97 | 40 - 110 U/L | [facility] | | | Phosphatase | | | [facility] | | | | | | MEDICAL | | | | | | CENTER - | | | | | | LABORATORY | | + + + + + + | Globulin | 2.5 | 2.1 - 3.8 g/dL | [facility] | | | | | | [facility] | | | | | | MEDICAL | | | | | | CENTER - | | | | | | LABORATORY | | + + + + + + | Albumin/Flor | 1.6 | 0.8 - 2.0 | [facility] | | | bulin Ratio | | | [facility] | | | | | | MEDICAL | | | | | | CENTER - | | | | | | LABORATORY | | + + + + + + | BUN/Creatin | 8.3 | | [facility] | | | ine [...] + | [facility] | [address] | [place] | [phone] | | [facility] | | [address] | | | - LABORATORY | | | | + + + + + CBC with Differential (05/04/2017 3:42 PM PST) + + + + + + | Component | Value | Ref Range | Performed | Pathologist | | | | | At | Signature | + + + + + + | White Blood | 5.7 | 4.0 - 11.0 K/uL | [facility] | | | Cells | | | [facility] | | | | | | MEDICAL | | | | | | CENTER - | | | | | | LABORATORY | | + + + + + + | Red Blood | 4.36 | 3.70 - 5.20 | [facility] | | | Cells | | M/uL | [facility] | | | | | | MEDICAL | | | | | | CENTER - | | | | | | LABORATORY | | + + + + + + | Hemoglobin | 14.4 | 11.5 - 16.0 | [facility] | | | | | g/dL | [facility] | | | | | | MEDICAL | | | | | | CENTER - | | | | | | LABORATORY | | + + + + + + | Hematocrit | 42.9 | 34.0 - 47.0 % | [facility] | | | | | | [facility] | | | | | | MEDICAL | | | | | | CENTER - | | | | | | LABORATORY | | + + + + + + | MCV | 98.5 | 83.0 - 101.0 fL | [facility] | | | | | | [facility] | | | | | | MEDICAL | | | | | | CENTER - | | | | | | LABORATORY | | + + + + + + | MCH | 33.1 | 28.0 - 35.0 pg | [facility] [...] + + + + | RDW-CV | 13.4 | <15.0 % | [facility] | | | | | | [facility] | | | | | | MEDICAL | | | | | | CENTER - | | | | | | LABORATORY | | + + + + + + | Platelet | 195 | 140 - 440 K/uL | [facility] | | | Count | | | [facility] | | | | | | MEDICAL | | | | | | CENTER - | | | | | | LABORATORY | | + + + + + + | MPV | 9.5 | fL | [facility] | | | | | | [facility] | | | | | | MEDICAL | | | | | | CENTER - | | | | | | LABORATORY | | + + + + + + | % | 41.5 (L) | 45.0 - 82.0 % | [facility] | | | Neutrophils | | | [facility] | | | | | | MEDICAL | | | | | | CENTER - | | | | | | LABORATORY | | + + + + + + | % | 47.4 (H) | 20.0 - 45.0 % | [facility] | | | Lymphocytes | | | [facility] | | | | | | MEDICAL | | | | | | CENTER - | | | | | | LABORATORY | | + + + + + + | % Monocytes | 8.7 | 4.0 - 12.0 % | [facility] | | | | | | [facility] | | | | | | MEDICAL | | | | | | CENTER - | | | | | | LABORATORY | | + + + + + + | % | 2.0 | 0.0 - 5.0 % | [facility] | | | Eosinophils | | | [facility] | | | | | | MEDICAL | | | | | | CENTER - | | | | | | LABORATORY | | + + + + + + | % Basophils | 0.4 | 0.0 - 1.0 % | [facility] | | | | | | [facility] | | | | | | MEDICAL | | | | | | CENTER - | | | | | | LABORATORY | | + + + + + + | Absolute | 2.40 | 1.80 - 8.50 | [facility] | | | Neutrophils | | K/uL | [facility] | | | | | | MEDICAL | | | | | | CENTER - | | | | | | LABORATORY | | + + + + + + | Absolute | 2.70 | 0.60 - 3.20 | [facility] | | | Lymphocytes | | K/uL | [facility] | | | | | | MEDICAL | | | | | | CENTER - | | | | | | LABORATORY | | + + + + + + | Absolute | 0.50 | 0.00 - 1.00 | [facility] | [...] + + + + | Absolute | 0.00 [...] [address] | [place] | [phone] | | [facility] | | [address] | | | - LABORATORY | | | | + + + + + documented in this encounter Visit Diagnoses + + | Diagnosis | + + | Chronic bilateral low back pain with left-sided sciatica - Primary | + + | Muscle spasm Spasm of muscle | + + | Fibromyalgia Mylagia and myositis, unspecified | + + | Left hip pain [...] | | | | First dose on Thu02/23/17 at | | | | | | [...]
--- OUTSIDE RECORDS SUMMARY | ~2020-02-29 | XMS | Encounter Summary ---
Demographics + + + | Address | [address] | | | [place] [address] | + + + | Home Phone [...] Providers + +------+ + | Care Machine Repairman Name | Role | Phone | [...] + + | 09/14/ | Telephone | [facility] | Alanis, | Referral | | 2017 | | MEDICINE [address] | MD Petrona | | | | | [place], | [address] [facility] | | | | | [place] [address] | [place] [address] | | | | | [phone] | [phone] | | | | | | | [...] Fernandez - 09/17/2017 4:47 PM PDTSchedule 09/22/17.Electronica zaire signed by Juliane Fernandez at 09/17/2017 4:48 PM PDTTelephone Encounter - Maggie Montoya LPN - 09/15/2017 11:41 AM PDTPatient notified that appt maybe needed before MRI can be order ed. Message sent to MD for advise. Call transferred to PSR to schedule appointmentNishant kohli signed by Maggie Montoya LPN at [...] Petrona | | | | | | [address] [place] [address] [place] | | | | | | [place] [address] | | | | | | [phone] | | | | | | | | +--------+---------+ + + + documented as of this encounter Visit Diagnoses Not on filedocumented in this encounter"
--- OUTSIDE RECORDS SUMMARY | ~2020-02-29 | XMS | Encounter Summary ---
Demographics + + + | Address | [address] | | | [place] [address] | + + + | Home Phone [...] Providers + +------+ + | Care Teacher Of [employer] Deaf Name | Role | Phone | + [...] + + | 12/12/ | Telephone | [facility] | Alanis, | Headache (Adult - | 2019 | | MEDICINE [address] | MD Petrona | Recurrent Or Known | | | | [place], | [address] [place] | Dx Migraines) | | | | [place] [address] | [place] [address] | | | | | [phone] | [phone] | | | | | | | [...] seek medical attention at the ED in [facility], [place]. Patient states son is with her and [...] | | | | | [place] [address] | | | | | | [phone] | | | | | | | | +--------+---------+ + + + documented as of this encounter Visit Diagnoses Not on filedocumented in this encounter"
--- OUTSIDE RECORDS SUMMARY | ~2020-02-29 | XMS | Encounter Summary ---
Demographics + + + | Address | [address] | | | [place] [address] | + + + | Home Phone [...] Team Providers + +------+ + | Care Care Consultant Name | Role | Phone | [...] Meeks | | | | Densitometry | | MD Beto | Bonedensity | | | | | Osteoporosis | [address] | [facility] [address] | | | | | Procedures | [address] | [address] | | | | | CONSULT TO | [place], [place] | [address]ina [address] | | | | | BONE | [address] | Mailcode: | | | | | DENSITOMETRY | Phone: | RODERICK Jayce | | | | | | [phone] | Naeem De La Rosa | | | | | | Fax: | [place], [place] | | | | | | [phone] | [address] | | | | | | | Phone: | | | | | | | [phone] | | | | | | | Fax: | | | | | | | [phone] | +--------+--------+ + + + + Encounter Details +--------+---------+ + + + | Date | Type | Department | Care Team | Description | +--------+---------+ + + + | 08/23/ | Office | Endocrinology, | Sjh, Bmd Dexa | Other Osteoporosis | | 2007 | Visit | Diabetes and | [address] | (Primary Dx); | | | | Clinical Nutrition | [facility], | Symptomatic | | | | [address] | [place] [address] | Menopausal or Female | | | | [facility] Mailcode: | | Climacteric States; | | | | [address] | | Disorder of Bone | | | | [facility] [place], [place] | | and Cartilage, | | | | [address] | | Unspecified | | | | [phone] | | | +--------+---------+ + + + [...] | | + +---------+--------+ + + | [place] DXA BONE | Imaging | Routin | [...]
--- OUTSIDE RECORDS SUMMARY | ~2020-02-29 | XMS | Encounter Summary ---
Demographics + + + | Address | [address] | | | [place] [address] | + + + | Home Phone [...] Team Providers + +------+ + | Care Wire Roller Name | Role | Phone | + [...] | | | [address] | [address] | | | | | | [place], | Phone: | | | | | | [place] | [phone] | | | | | | [address] | | | | | | | Phone: | | | | | | | [phone] | | | | | | | Fax: | | | | | | | [phone] | | +--------+ + + + + + Encounter Details +--------+ + + + + | Date | Type | Department | Care Team | Description | +--------+ + + + + | 06/18/ | Orders Only | [facility] | Alanis, | Multiple food | | 2019 | | MEDICINE [address] | MD Petrona | allergies (Primary | | | | [address] [place], | [address] [place] | Dx) | | | | [place] [address] | [place] [address] | | | | | [phone] | [phone] | | | | | | | [...] | | | | | [place] [address] | | | | | | [phone] | | | | | | | | +--------+---------+ + + + + + +--------+ + + | Name | Type | Priori | Associated Diagnoses | Order Schedule | | | | ty | | | + + +--------+ + + | Roscoe | Outpatient | Routin | Multiple food [...]
--- OUTSIDE RECORDS SUMMARY | ~2020-02-29 | XMS | Encounter Summary ---
Demographics + + + | Address | [address] | | | [place] [address] | + + + | Home Phone [...] Team Providers + +------+ + | Care Tare Worker Name | Role | Phone | + +------+ + | Pedrito Gutierrez MD | PCP | | + +------+ + Encounter Details +--------+---------+ + + + | Date | Type | Department | Care Team | Description | +--------+---------+ + + + | 08/05/ | Office | Comprehensive [facility] | Nathalia Arora | Cervical Spondylosis | | 2006 | Visit | [facility] | [address] | without Myelopathy | | | | [place] [address] | [address] [address] [place], | (Primary Dx); | | | | [facility] for | [place] [address] | 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 PROGRESS NOTE: Physical Therapy Medicare Progress Note Date: 08/05/2006 Belinda Meehan [id number]. 1960 Start of Care: 06/23/2006 Referring Provider: [...] pain. Objective: Patient stated that this past Thu. She had a migraine that was so bad she could n't keep hydrated, went to the ED in [place] and was sent home by the Joanna There without a ny treatment and advised by him to contact the pain clinic. Patient did not some relief with her last treatment, and continues her exercises consistent ly. She is walking daily at [facility] for 15-20 minutes, sitting X 60 [...] with psychology, every other week. Treatment began: 1100 Treatment ended: 1155 Nathalia Arora, Physical Therapist License number [id number] documented in this encoun ter Plan of Treatment + + +--------+ + + | Name | Type | Priori | Associated Diagnoses | Order Schedule | | | | ty | | | + + +--------+ + + | MD MANUAL THER | Procedures | Routin | [...] + + +--------+ + + | MD THERAPEUTIC | Procedures | Routin | Cervical [...] + + +--------+ + + | MD THERAPEUTIC | Procedures | Routin | Cervical [...]
--- OUTSIDE RECORDS SUMMARY | ~2020-02-29 | XMS | Encounter Summary ---
Demographics + + + | Address | [address] | | | [place] [address] | + + + | Home Phone [...] Providers + +------+ + | Care Fly Winder Name | Role | Phone | + +------+ + | Pedrito Gutierrez MD | PCP | | + +------+ + Reason for Visit + +--------+ + | Reason | Onset | Comments | | | Date | | + +--------+ + | MRI Results | 10/05/ | | | | 2007 | | + +--------+ + Encounter Details +--------+ + + + + | Date | Type | Department | Care Team | Description | +--------+ + + + + | 10/05/ | Telephone | Orthopaedics | Ramon Ibarra, | MRI Results | | 2006 | | [facility] at [place] | MD [address] [facility] | | | | | for Health and | [facility] [place] | | | | | Healing [address] | [address] | | | | | e [place] for | [phone] | | | | | Health and Healing, | | | | | | [facility] | | | | | | [place], [place] | | | | | | [address] | | | | | | [phone] | | | +--------+ + + + [...] this encounter Miscellaneous Notes Telephone Encounter - Cristin Jane Cma - 10/07/2006 8:[address] Sharpe ronically signed by Cristin Jane Cma at 10/07/2006 8:24 AM PDTTelephone Encounter - Jailyn Stark - 10/05/2006 4:[address] dr. Ibarra to review her MRI results and call her back. documented in this encounter Plan of Treatment Not on filedocumented as of this encounter Visit Diagnoses Not on filedocumented in this encounter"
--- OUTSIDE RECORDS SUMMARY | ~2020-02-29 | XMS | Encounter Summary ---
Demographics + + + | Address | [address] | | | [place] [address] | + + + | Home Phone [...] Team Providers + +------+ + | Care Knit Goods Washer Name | Role | Phone | [...] + + | 05/29/ | Office | [facility] | Delfina Molina, | Chronic Abdominal | | 2005 | Visit | Pain Center at | ANP | Pain; Cervical Pain; | | | | [facility] | | Joint pain 719.40; | | | | [address] | | Depression | | | | [place] for [facility] | | | | | | and Healing, | | | | | | Building | | | | | | Floor [place], [place] | | | | | | [address] | | | | | | [phone] | | | +--------+---------+ + + + [...] a Physical Therapy evaluation here at the [facility] in [place]. 3. Patient will be referred for a Psychology evaluation here at the [facility]. 4. Following the completion of these evaluations, [...] this note might be different from lesli e original. 05/29/2006 Belinda Meehan is a 46 y.o. female [id number] Chief Complaint: Patient presents with: Pain - [...] as PAIN MEDICINES: Opioids: Hydrocodone (Vicodin, Lortab, [place]): Why stopped?: don't remember. Came off due [...] and surgery (rou en Y gastric bypass 4) left knee surgery torn maniscus(arthroscopy). The most [...] HX SALPINGO-OOPHORECTOMY COLONOSCOPY Comment: 03/2006 HX TONSILLECTOMY RI D&C AFTER DELIVERY RI INJECT TRIGGER POINT, 1 OR 2 Family [...] a Physical Therapy evaluation here at the [facility]. 3. Patient will be referred for a Psychology evaluation here at the [facility] er. 4. Following the completion of these [...] you for referring Belinda Meehan to [facility] [place] for a chronic pain management evaluation. I trust that you will find the recomm endations satisfactory and that you will be able to implement these in the care of your mehreen ent. Should you have any concerns or questions, please contact me, I would be happy to add ress those with you. DELFINA MOLINA [facility] Mail code [place] [address] [facility] Health and [address] [phone] meryTasha - 05/29/2006 1:51 PM PSTInitial Evaluation Questionnaire [...] drinking? no -Do you ever drink an eye-graphics intern in the morning to relieve the shakes? [...] stressful life experiences recently? yes If yes, explain:property administrator brigida pain GOALS AND EXPECTATIONS 23. What do you expect from our pain program? Help in coping with the pain 24. What types of treatment do you expect from your visits to the [facility] ? Stress Management documented in [...]
--- OUTSIDE RECORDS SUMMARY | ~2020-02-29 | XMS | Encounter Summary ---
Demographics + + + | Address | [address] | | | [place] [address] | + + + | Home Phone [...] Providers + +------+ + | Care Recovery Auditor Name | Role | Phone | + +------+ + | Sulaiman Carrera MD | PCP | | + +------+ + Encounter Details +--------+ + + + + | Date | Type | Department | Care Team | Description | +--------+ + + + + | 06/30/ | Telephone | [facility] at [facility] | Lukasz Charles, | | | 2013 | | [address] | PhD [address] | | | | | Center for Health | [place], [place] | | | | | and Healing, | [address] | | | | | [facility] | [phone] | | | | | Floor [place], [place] | | | | | | [address] | | | | | | [phone] | | | +--------+ + + + [...] this encounter Miscellaneous Notes Telephone Encounter - Lukasz Charles, PhD - 06/30/2013 2:17 PM PSTReturned patient's phone call. She is upset that her primary care provider is no longer going to be prescribing sina n medications. We discussed how she can talk to Rosi Antonio about this at her next follow-u p visit. We discussed self-management and stress management and I urged her to do all she c an do to take control over situations and frustrations. She denied suicidality and denied h opelessness. LUKASZ CHARLES, PHD [facility] Mail Code: [place] [address] documented in this en counter Plan of Treatment Not on filedocumented as of this encounter Visit Diagnoses Not on filedocumented in this encounter"
--- OUTSIDE RECORDS SUMMARY | ~2020-02-29 | XMS | Encounter Summary ---
Demographics + + + | Address | [address] | | | [place] [address] | + + + | Home Phone [...] Team Providers + +------+ + | Care Planisher Name | Role | Phone | + +------+ + | Petrona Thapa | PCP | | | MD | | | + +------+ + Reason for Visit + +--------+ + | Reason | Onset | Comments | | | Date | | + +--------+ + | Sinus Pain | 09/01/ | | | | 2018 | | + +--------+ + Encounter Details +--------+ + + + + | Date | Type | Department | Care Team | Description | +--------+ + + + + | 09/01/ | Telephone | [facility] | Alanis, | Sinus Pain | | 2018 | | MEDICINE [address] | MD Petrona | | | | | [place], | [address] [facility] | | | | | [place] [address] | [place] [address] | | | | | [phone] | [phone] | | | | | | | [...] Telephone Encounter - Maggie Montoya LPN - 09/01/2018 1:20 PM PDTPer , patient notified will need to be evaluated for possible sinus infection. MD out of the office this afternoon and patient not able to come in tomorrow as she has another appt with the pain clinic. Brayden lewis notified that MD out of the office the following week. Patient states will seek medical a ttention for any worsening symptoms. Patient has a follow up appt with on 09/15/18Veto lentz signed by Maggie Montoya LPN at 09/01/2018 1:34 PM PDTTelephone Encounter - Esperanza Cantor - 09/01/2018 11:50 AM PDTPatient called wanting to speak with the nurse. Patient s tated she has been having symptoms for a while now of pain under her eyes, dark green/bloody discharge from her nose and coughing up green stuff as well. Patient would like a call china whitlocke, . documented in this encounter Plan of [...] | | | | | [place] [address] | | | | | | [phone] | | | | | | | | +--------+---------+ + + + documented as of this encounter Visit Diagnoses Not on filedocumented in this encounter"
--- OUTSIDE RECORDS SUMMARY | ~2020-02-29 | XMS | Encounter Summary ---
Demographics + + + | Address | [address] | | | [place] [address] | + + + | Home Phone [...] Team Providers + +------+ + | Care Asphalt Surface Heater Operator Name | Role | Phone | + +------+ + | Pedrito Gutierrez MD | PCP | | + +------+ + Reason for Visit + +--------+ + | Reason | Onset | Comments | | | Date | | + +--------+ + | Follow-up visit | 03/03/ | | | | 2007 | | + +--------+ + Consultation (Routine) +--------+--------+ + + + + | Status | Reason | Specialty | Diagnoses / | Referred By | Referred To | | | | | Procedures | Contact | Contact | +--------+--------+ + + + + | Closed | | Pain | Diagnoses | Miracle, | Nobles, | | | | Management | LBP (low | NIHARIKA Jean | Lukasz Rhodes, PhD | | | | | back pain) | [address] | [address] | | | | | DJD | [address] | Ave | | | | | (degenerativ | [place], [place] | [place] | | | | | e joint | [address] | [address] | | | | | disease) of | | Phone: | | | | | knee Knee | | [phone] | | | | | pain Major | | Fax: | | | | | depressive | | [phone] | | | | | disorder, | [...] 03/03/ | Office | [facility] at [facility] | Lukasz Charles, | Major Depressive | | 2007 | Visit | [address] | PhD [address] | Disorder, Recurrent | | | | Center for [facility] | [place], [place] | Episode, Moderate | | | | and Healing, | [address] | ([facility]); LBP (Low Back | | | | | [phone] | Pain); Bilateral | | | | Floor [place], [place] | | Knee Pain; | | | | [address] | | Fibromyalgia | | | | [phone] | | syndrome 729.1; | | | [...] a lot and is going to the [employer] regularly. She mentioned that she is taking [...] seems to be doing good self-care. Diagnosis: Alva I: 1. (296.32) Major depressive disorder, recurrent, moderate. 2. (309.24) Adjustment disorder with anxiety. 3. (307.89) Chronic pain disorder associated with both psychological factors and a gene ral medical condition. Alva II: Deferred Alva III: abdominal pain, migraine headache, low back pain. Alva IV: low finances Alva V: GAF 55-60 Plan: return with next medical follow-up appointment. Check mood, pain, relaxation, activ ity, distraction, eating. Continue cognitive/behavioral therapy. Total time spent with patient was approximately 45 minutes. LUKASZ CHARLES PHD [facility] [address] [facility], 4th [place] [address] documented in this encount er Plan of Treatment + + +--------+ + + | Name | Type | Priori | Associated Diagnoses | Order Schedule | | | | ty | | | + + +--------+ + + | MA PSYCHOTHERPY, | Procedures | Routin | Major Depressive | Ordered: 03/03/2008 | | OFFICE (45-50) | | e | Disorder, Recurrent | | | | | | Episode, Moderate | | | | | | ([facility]) LBP (Low Back | | | [...]
--- OUTSIDE RECORDS SUMMARY | ~2020-02-29 | XMS | Encounter Summary ---
Demographics + + + | Address | [address] | | | [place] [address] | + + + | Home Phone [...] Providers + +------+ + | Care Nurse Leader Name | Role | Phone | [...] + + + | Closed | | Infusion | Diagnoses | | [facility] | | | | Therapy | | [facility] | Infusion [address] | | | | | Osteoporosis | i, | [address] | | | | | due to | [place] | Cece Zhao, | | | | | sapphireabsorpcecilia | , MD [address] | [place] [address] | | | | | n | [address] | Phone: | | | | | | [place], | [phone] | | | | | | [place] | Fax: | | | | | | [address] | [phone] | | | | | | Phone: | | | | | | | [phone] | | | | | | | Fax: | | | | | | | [phone] | | +--------+--------+ + + + + Evaluate & Treat (Routine) +--------+ + + + + + | Status | Reason | Specialty | Diagnoses / | Referred By | Referred To | | | | | Procedures | Contact | Contact | +--------+ + + + + + | Closed | Specialty | Dermatology | Diagnoses | | [place] | | | Services | | Skin lesion | [facility] | CLINIC | | | Required | | of left leg | i, | DERMATOLOGY | | | | | | Petrona | GROUP [address] | | | | | | , MD [address] | | | | | | [address] | [place], | | | | | | [place], | [place] [address] | | | | | | [place] | Phone: | | | | | | [address] | [phone] | | | | | | Phone: | Fax: | | | | | | [phone] | [phone] | | | | | | Fax: | | | | | | | [phone] | | +--------+ + + + + + Reason for Visit + + + | Reason | Comments | + + + | Depression | 3 month follow up | + + + | Skin Check | spot on left leg | + + + Service/Procedure (Routine) +--------+--------+ + + + + | Status | Reason | Specialty | Diagnoses / | Referred By | Referred To | | | | | Procedures | Contact | Contact | +--------+--------+ + + + + | Closed | | Infusion | Diagnoses | | [facility] | | | | Therapy | | [facility] | Infusion [address] | | | | | Osteoporosis | i, | [address] | | | | | due to | Pet[place] | Cece Zhao, | | | | | salvador | , MD [address] | [place] [address] | | | | | n | [address] | Phone: | | | | | | [place], | [phone] | | | | | | [place] | Fax: | | | | | | [address] | [phone] | | | | | | Phone: | | | | | | | [phone] | | | | | | | Fax: | | | | | | | [phone] | | +--------+--------+ + + + + Encounter Details +--------+---------+ + + + | Date | Type | Department | Care Team | Description | +--------+---------+ + + + | 02/15/ | Office | [facility] | Emmy-Tajti, | Skin lesion of left | | 2020 | Visit | MEDICINE [address] [place] [address] | MD Petrona | leg (Primary Dx); | | | | [facility], | [address] [facility] | Migraine without | | | | [place] [address] | [place] [address] | aura and without | | | | [phone] | [phone] | status migrainosus, | | | | | | not intractable; B12 | | | | | | deficiency; | | | | | | Osteoporosis due to | | | | | | malabsorption; Need | | | | | | for vaccination | +--------+---------+ + + + Social History [...] + + + | Blood Pressure | 104/66 | 02/16/2020 10:35 AM | | | | | PDT | | + + + + + | Pulse | 63 | 02/16/2020 10:35 AM | | | | | PDT | | + + + + + | Temperature | 36.5 C (97.7 F) | 02/16/2020 10:35 AM | | | | | PDT | | + + + + + | Respiratory Rate | 18 | 02/16/2020 10:35 AM | | | | | PDT | | + + + + + | Oxygen Saturation | 96% | 02/16/2020 10:35 AM | | | | | PDT | | + + + + + | Inhaled Oxygen | - | - | | | Concentration | | | | + + + + + | Weight | 93.4 kg (205 lb 14.6 | 02/16/2020 10:35 AM | | | | oz) | PDT | | + + + + + | Height | - | - | | + + + + + | Body Mass Index | 33.23 | 12/21/2019 10:56 AM | | | | | PDT | | + + + + + documented in this encounter Progress Notes Petrona Thapa MD - 02/16/2020 10:30 AM PDTFormatting of this note might be d ifferent from the original. CHIEF COMPLAINT Chief Complaint Patient presents with Depression 3 month follow up Skin Check spot on left leg HPI Belinda Meehan is a 60 y.o. y/o female who presents today for several issues: She has a spot on her left leg, she has noticed that is has been growing over the last few months. Is not painful. No redness. No trauma. Has history of migraine headaches and has been finally approved to try Aimovig. She states it has helped quite a bit and her migraines have decreased by at least 50%. This is manage d by her pain specialist. Has history of osteoporosis in the context of previous bariatric surgery. Had 2 Reclast in fusions over last 3 years. She is due to have another 1 and she wants to be scheduled for i t. Needs flu shot and b12 shot today. Last was about 2 months ago. ASSESSMENT & PLAN 1. Skin lesion of left leg - [facility] - AMB Referral 2. Migraine without aura and without status migrainosus, not intractable -Continue current regimen and follow-up with pain specialist. 3. B12 deficiency -B12 shot today. 4. 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 Need for vaccination - Influenza *PF 18 yrs or >,Quadrivalent Recombinant (Flublok) REVIEW OF SYSTEMS Constitutional: No Weight Change, [...] No Arthralgias, No Myalgias. Skin: No Rashes, R lower leg skin lesion Neuro: No Weakness, No Numbness, No Headache. Psych: No Anxiety/Panic, No Depression. Heme/Lymph: No Bruising, No Bleeding. Endocrine: No Polyuria, No Polydipsia, No Temperature Intolerance. PHYSICAL EXAM VITAL SIGNS: BP 104/66 | Pulse 63 | Temp 36.5 C (97.7 F) (Temporal) | Resp 18 | Wt 93.4 kg (205 lb 14.6 oz) | LMP (LMP Unknown) | SpO2 96% | BMI 33.23 kg/m Constitutional: Well developed, No acute distress, [...] distress, No crackles, wheezing, or rubs. Skin: 8 mm round lesion on R lower lat leg below knee, with some vascularization, not protr uding, no erythema. Neurologic: Alert & oriented x 3, No [...] COPD (chronic obstructive pulmonary disease) ([facility]) Depression Diarrhea Dumping syndrome Fall at home Fatigue fracture of vertebra Fibromyalgia Full dentures GERD (gastroesophageal reflux disease) Glaucoma Hyperparathyroidism ([facility]) Hypothyroidism IBS (irritable bowel syndrome) Idiopathic scoliosis Leg edema Low back pain Lumbar postlaminectomy syndrome Lumbar radiculopathy primarily right 01/04/2015 Meniere syndrome Migraine with aura Migraines Muscle cramping Muscle spasm Myalgia Nausea Nonalcoholic hepatosteatosis Obesity Opioid dependence ([facility]) Orthostatic hypotension OLIVER (obstructive sleep apnea) Osteoarthritis, generalized Osteopenia Osteoporosis Palpitations Peripheral neuropathy Rheumatoid arthritis ([facility]) Right arm pain 01/04/2015 RLS (restless legs syndrome) S/P lumbar fusion 01/04/2015 Scoliosis Sleep apnea Spondylosis with myelopathy, lumbar region Stroke ([facility]) Syncope Tremor Type II or unspecified [...] Years: 30.00 Pack years: 15.00 Types: Cigarettes Quit date: 04/15/2014 Years since quittin.8 Smokeless tobacco: Never Used Tobacco comment: stopped smoking Substance and Sexual Activity Alcohol use: No Alcohol/week: 0.0 standard drinks Drug use: No Sexual activity: Never SURGICAL HISTORY Past Surgical History: Procedure Laterality Date ADENOIDECTOMY APPENDECTOMY BREAST LUMPECTOMY Left 2002 CARPAL TUNNEL RELEASE 2001 SECTION CHOLECYSTECTOMY 2004 COLONOSCOPY N/A 12/18/2017 Procedure: COLONOSCOPY; Surgeon: Luther Brito MD; Location: [facility] MEDICAL PROCEDURE UNIT DILATION AND CURETTAGE OF UTERUS ELBOW SURGERY FINGER TRIGGER RELEASE 2002 FINGER TRIGGER RELEASE 2010 GASTRIC BYPASS SURGERY 2004 HYSTERECTOMY 05/14/1980 JOINT REPLACEMENT Bilateral 2006 2007 KNEE ARTHROSCOPY 2005 LAPAROSCOPY 01/27/2015 LAPAROTOMY 2008 ROTATOR CUFF REPAIR 2005 SPINE SURGERY TONSILLECTOMY 1964 UPPER GASTROINTESTINAL ENDOSCOPY N/A 12/18/2017 Procedure: EGD; Surgeon: Luther Brito MD; Location: [facility] MEDICAL PROCEDURE UNIT CURRENT MEDICATIONS Current Outpatient Medications Medication Sig Dispense Refill AIMOVIG 70 MG/ML injection inject 1 milliliter subcutaneously every 30 DAYS albuterol 90 mcg/puff inhaler Inhale 2 puffs into the lungs every 6 hours as needed for Wheezing, Shortness of Breath or Increased Work of Breathing (cough). 1 Inhaler 5 ascorbic acid (VITAMIN C) 500 mg tablet Take 500 mg by mouth Daily. cholecalciferol (VITAMIN D-3) 5000 UNITS TABS Take 5,000 Units by mouth Daily. COMBIGAN 0.2-0.5 % ophthalmic solution 0 diclofenac (VOLTAREN) 1% GEL apply 1 to 2 grams topically three times a day EPINEPHrine (EPIPEN) 0.3 mg/0.3 mL injection (ER [...] capsules by mouth every evening 180 capsule 5 meclizine (ANTIVERT) 25 mg tablet take 1 tablet by mouth three times a day if needed fo r dizziness 90 tablet 0 methocarbamol (ROBAXIN) 750 mg tablet take 1 tablet by mouth twice a day 60 tablet 3 metoprolol tartrate (LOPRESSOR) 25 mg tablet take 1/2 tablet by mouth twice a day. 30 t ablet 11 Multiple Vitamins-Minerals (COMPLETE WOMENS) TABS 1 [...] every evening with food 450 tablet 3 topiramate (TOPAMAX) 50 MG tablet take 2 tablets by mouth every 12 hours for MIGRAINE P REVENTION 228 tablet 5 torsemide (DEMADEX) 5 mg tablet take 1 tablet by mouth 5 TIMES A WEEK. 25 tablet 5 zinc sulfate 220 mg [...] Allergen Reactions Ensure Diarrhea Food Diarrhea Lactose Kqyfazgipu-Vnp-Ewvb-Codeine Other (See Comments) Balance problems Codeine Sulfate Nausea Only Food Allergy Formula Diarrhea Ensure Levofloxacin Hives, Itching and Rash Butalbital Ropinirole Amitriptyline Hcl Other (See Comments) Confused and questionable for seizures Rxpfewxkbh-Wsic-Sxwqgihh Rash duplicate Qantskfxqt-Plkg-Vydvpkzx Hives and Rash Cephalexin Hives Ciprofloxacin Hives and Rash Clarithromycin Hives and Rash Clindamycin Hcl Hives and Rash Doxycycline Rash Duloxetine Other (See Comments) Migraines and nausea Ketorolac Hives Levofloxacin Hives and Rash Morphine Swelling Penicillins Hives and Rash Ropinirole Hcl Hives Sulfamethoxazole-Trimethoprim Hives and Rash Tramadol Hcl Nausea Only FOLLOW-UP Return in about 3 months (around 05/17/2020) for Follow Up - 15 Minutes. Notes: 1. Parts of this documentwere created using [employer] speech recognition software. As a resu lt, [...] signed by Petrona Thapa MD at 2019 12:25 PM PDTdocumented in this encounter Plan of Treatment +--------+---------+ + + + | Date | Type | Specialty | Care Team | Description | +--------+---------+ + + + | 05/17/ | Office | Internal Medicine | Emmy-Prudencioflip, | | | 2019 | Visit | | MD Petrona | | | | | | [address]la [address]AY | | | | | | [place] [address] | | | | | | [phone] | | | | | | | | +--------+---------+ + + + + + +--------+ + + | Name | Type | Priori | Associated Diagnoses | Order Schedule | | | | ty | | | + + +--------+ + + | Cece Zhao | Outpatient | Routin | Skin lesion of | Ordered: 02/16/2020 | | Clinic Dermatology | Referral | e | left leg | | | Group - AMB Referral | | | | | + + +--------+ + + | * [facility] - | Outpatient | Routin | Osteoporosis due | Expected: | | AMB Referral | Referral | e | to malabsorption | 02/16/2020, Expires: | | | | | | 02/15/2021 | + + +--------+ + + documented as of this encounter Visit Diagnoses + + | Diagnosis | + + | Skin lesion of left leg - Primary Unspecified disorder of skin and subcutaneous | | tissue | + + | Migraine without aura and without status migrainosus, not intractable Migraine | | without aura, without mention of intractable migraine without mention of status | | migrainosus | + + | B12 deficiency Other B-complex deficiencies | + + | 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
--- OUTSIDE RECORDS SUMMARY | ~2020-02-29 | XMS | Encounter Summary ---
Demographics + + + | Address | [address] | | | [place] [address] | + + + | Home Phone [...] Team Providers + +------+ + | Care Laborer Plumbing Name | Role | Phone | + [...] | | | Metabolism | bypass | [address] | | | | | Hypovitamino | [address] | [address] | | | | | sis [address] | [address] | [place], [place] | | | | | nutritional | [place] | [address] | | | | | deficiency | [address] | Phone: | | | | | Other | Phone: | [phone] | | | | | protein-jose manuel | [phone] | Fax: | | | | | nick | Fax: | [phone] | | | | | malnutrition | [phone] | | | | | | Weight | | | | | | | gain | | | | | | | Procedures | | | | | | | CONSULT TO | | | | | | | ENDO | | | | | | | [address] | | | | | | | [address] | | | +--------+--------+ + + + [...] | | | | | | | [facility] | | | | | | | Health and | | | | | | | Healing, | | | | | | | [address] | | | | | | | [place], [place] | | | | | | | [address] | | | | | | | Phone: | | | | | | | [phone] | | | | | | | Fax: | | | | | | | [phone] | +--------+--------+ + + + + Encounter Details +--------+---------+ + + + | Date | Type | Department | Care Team | Description | +--------+---------+ + + + | 09/23/ | Office | Digestive Health | Patricia Banegas, | H/O gastric bypass | | 2013 | Visit | Center at [facility] [address] | INVENTORY REPRESENTATIVE [address] | (Primary Dx); | | | | [address] [facility] | [facility] [address] | Hypovitaminosis D; | | | | for Health and | [place], [place] | B12 nutritional | | | | [facility], [address] | [address] | deficiency; Other | | | | [facility] [place] | [phone] | protein-calorie | | | | [address] | | malnutrition; Weight | | | | [phone] | | gain; Teeth decayed | +--------+---------+ + + + Social History [...] make an appt with me Calories approx. 1728-7321 per day when 3 mos or more out from surgery to maintain weight l oss. Calories may need to be adjusted up for individual needs. I recommend eating 5-6 times per day. [employer] Protein 60-100+ gms per day Water: 64 oz per day, your urine should be light yellow. Please let up know if you would like a referral to see the Theater Projectionist. I would be happy to put in referrals to [facility], medical membership is $198 for 3 mos. If you are 12 mos or more out from surgery and would like referral for excess skin removal please let us know. Call us if you have any questions or concerns, or send [employer] message for non-urgent issue sYudy Banegas RN, [facility] Nurse Practitioner for Bariatric Surgery Formerly named [facility] | [address] | [place], [place] | [address] | documented in this encounter Progress Notes [...] Hives Mainly in the legs Clindamycin Codeine Oppvsgv-Jksftnealz-Nnz-Caff Balance problems Fioricet W/Codeine (Pnsorkdluv-Thoioyaxhw-Qou-Cod) Keflex (Cephalexin) Morphine IM ( only in [facility]) made gut pain worse 08/27/06: Trial [...] replacement 08/2007 right knee Lumbar fusion 05/2008 L5-N8mozfji with bone spur removals Appendectomy Cholecystectomy section Hysterectomy Gastric bypass Mayra Padgett wt 278 01/18 Paniculectomy History Social History [...] to POC and will call or send [employer] message if any issues. Start time 1325, end time 1353. I spent a total of 28 minutes face to face with this patie nt. Over 50% of visit was in counseling. ~ 2 Minutes of additional time spent reviewing chart prior to visit and documenting after t his visit. Patricia Banegas RN, RECYCLING CENTER OPERATOR- Nurse Practitioner for Bariatric Surgery Formerly named [facility] | [address] | [place] | [address] | documented in this e ncounter Plan [...]
--- OUTSIDE RECORDS SUMMARY | ~2020-02-29 | XMS | Encounter Summary ---
Demographics + + + | Address | [address] | | | [place] [address] | + + + | Home Phone [...] Providers + +------+ + | Care Clinic Lpn Name | Role | Phone | + [...]
--- OUTSIDE RECORDS SUMMARY | ~2020-02-29 | XMS | Encounter Summary ---
Demographics + + + | Address | [address] | | | [place] [address] | + + + | Home Phone [...] Team Providers + +------+ + | Care Dietist Name | Role | Phone | + [...] as of this encounter Progress Notes Interface, Hot Molder In - 02/15/2006 2:03 AM PDT [id number] GEOVANNI SKELTON J [id number] Clinic Date: 10/23/2005 Clinic: Endocrinology Subjective: Belinda [...] her back on October 06, 2005, in [place], [place]. This study showed a moderate central disk bulge at L4-L5 consistent with a herniated nucleus pulposus. There has been some discussion by her physicians in [place] about the possibility of giving her epidural [...] most recent laboratory studies were performed in [place] on July 02, 2005. At that time, [...] months. Beto Meeks M.D. PD / HS [id number] / [id number] / [id number] / cc: Joanna Arshad M.D. [address] [facility] [place] [address] Electronically signed by Beto Meeks 02-14-2006 02:02:42 AM documented i n this encounter Plan of Treatment Not on filedocumented as of this encounter Visit Diagnoses Not on filedocumented in this encounter"
--- OUTSIDE RECORDS SUMMARY | ~2020-02-29 | XMS | Encounter Summary ---
Demographics + + + | Address | [address] | | | [place] [address] | + + + | Home Phone [...] + +------+ + | Care Guest Services Ambassador Name | Role | Phone | + +------+ + | Pedrito Gutierrez MD | PCP | | + +------+ + Reason for Visit + +--------+ + | Reason | Onset | Comments | | | Date | | + +--------+ + | Lab Results | 06/01/ | Jose L Padgett patient | | | 2005 | | + [...] CH4S | | | | | | [facility] | | | | | | and [place], | | | | | [facility] | | | | | | Floor [place], [place] | | | | | | [address] | | | | | | [phone] | | | +--------+ + + + [...] this encounter Miscellaneous Notes Telephone Encounter - Helena Vega - 06/01/2006 9:16 AM PSTPt would like results fr UGI done 05/29/06. Pt asked to be called as soon as possible. Patient states it is ok to leave confidential message on patient's answering machine. thank you, helena [id number] signed by Helena Vega at 06/01/2006 9:16 AM PSTdocumented in th is encounter Plan of Treatment Not on filedocumented as of this encounter Visit Diagnoses Not on filedocumented in this encounter"
--- OUTSIDE RECORDS SUMMARY | ~2020-02-29 | XMS | Encounter Summary ---
Demographics + + + | Address | [address] | | | [place] [address] | + + + | Home Phone [...] + + + + | 02/26/ | Hospital | [facility] | Alanis, | Age-related | | 2019 | Encounter | MED CTR OP INFUSION | MD [place] | osteoporosis without | | | | [address] | [address] [facility] | current | | | | [place] | [place] [address] | pathological | | | | [address] | [phone] | fracture (Primary | | | | [phone] | | Dx) | +--------+ + + [...] + + + | Blood Pressure | 109/60 | 02/27/2020 11:51 AM | | | | | PDT | | + + + + + | Pulse | 55 | 02/27/2020 11:51 AM | | | | | PDT | | + + + + + | Temperature | 35.6 C (96 F) | 02/27/2020 10:55 AM | | | | | PDT | | + + + + + | Respiratory Rate | 18 | 02/27/2020 11:51 AM | | | | | PDT | | + + + + + | Oxygen Saturation | 97% | 02/27/2020 11:51 AM | | | | | PDT [...] + + + +---------+ + + | AIMOVIG 70 MG/ML | inject 1 milliliter | | 0 | 02/03/20 | | | injection | subcutaneously every | | | 20 | | | | 30 DAYS | | | | | + + + +---------+ + + | albuterol 90 | Inhale 2 puffs into | 1 | 5 | 08/17/19 | | | mcg/puff inhaler | the [...] + + + +---------+ + + | diclofenac | apply 1 to 2 grams | | 0 | 12/29/19 | | | (VOLTAREN) 1% GEL | topically three | | | 20 | | | | times a day | | | | | [...] tablet by | 180 | 2 | 11/17/19 | | | 80 mg tablet | mouth twice a day | tablet | | 20 | | + + + +---------+ + [...] capsules by | 180 | 5 | 12/05/19 | | | (IMODIUM) 2 mg | [...] tablet by | 30 | 11 | 02/13/20 | | | tartrate (LOPRESSOR) | mouth twice a day. | tablet | | 20 | | | 25 mg tablet | [...] | | | | | | : jail | Decreased | | | | | [...] tablet by | 270 | 2 | 12/01/19 | | | (ZOFRAN ODT) 4 mg | mouth every 8 hours | tablet | | 20 | | | disintegrating | as needed [...] tablet by | 25 | 5 | 12/19/19 | | | (DEMADEX) 5 mg | mouth 5 TIMES A | tablet | | 20 | | | tablet | WEEK. | | | | | + + [...] encounter Progress Notes Roya Voss RN - 02/27/2020 10:30 AM PDT Vitals: 02/27/20 1055 02/27/20 1151 BP: 112/60 109/60 Pulse: 61 55 Resp: 16 18 Temp: 35.6 C (96 F) TempSrc: Oral SpO2: 92% 97% Administrations This Visit zoledronic acid (RECLAST) IVPB 5 mg Admin Date 02/27/2020 Action New Bag Dose 5 mg Rate 200 mL/hr Route Intravenous Administered By Roya Voss RN Monitored throughout treatment; treatment completed without untoward effects from medicatio n noted. Therapy plan complete, no further appts needed. Verbalizes understanding of plan of care. VS stable. Discharged ambulatory to home in stable condition. Electronically signed by: Roya Voss RN 02/27/2020 12:03 PM PDT Roya Weinberg RN - 0 02/27/2020 10:30 AM PDT Vitals: 02/27/20 1055 BP: 112/60 Pulse: 61 Resp: 16 Temp: 35.6 C (96 F) Belinda Meehan received into room 440, independent ambulation accompanied by her riend . States here for eclast infusion. Reports no change in condition, plan of care since last M D visit. Alert, oriented x 4, cooperative. Electronically signed by: Roya Voss RN 02/27/2020 11:39 AM PDT documented in this enc ounter Plan of Treatment +--------+---------+ + + + | Date | Type | Specialty | Care Team | Description | +--------+---------+ + + + | 05/17/ | Office | Internal Medicine | Alanis, | | 2019 | Visit | | MD [place] | | | | | | [address] [place] [address] [place] | | | | | | [place] [address] | | | | | | [phone] | | | | | | | [...] acid (RECLAST) IVPB | New Bag | 02/27/20 | 5 mg | 200 | | | 5 mg 5 mg, Intravenous, | | 20 11:20 | | mL/hr | | | Administer over 30 Minutes, ONCE, | | AM PDT | | | | | 02/27/20 at 1105, For 1 dose | | | | | | + +---------+ +------+-------+------+ +---+---+ | | | +---+---+ documented in this encounter"
--- OUTSIDE RECORDS SUMMARY | ~2020-02-29 | XMS | Encounter Summary ---
Demographics + + + | Address | [address] | | | [place] [address] | + + + | Home Phone [...] + + | 08/14/ | Office | [facility] | Alanis, | Situational insomnia | | 2020 | Visit | MEDICINE [address] | MD John | (Primary Dx); | | | | [place] [facility], | [address] [facility] | Situational | | | | [place] [address] | [place] [address] | depression | | | | [phone] | [phone] | | | | | | | [...] Total Score 10 (08/15/19934) (Printable questionnaires in Ethiopian ) Interpretation of Total Score: 1-4 = [...] Procedure: COLONOSCOPY; Surgeon: Luther Brito MD; Location: [facility] DILATION AND CURETTAGE OF UTERUS ELBOW SURGERY FINGER TRIGGER RELEASE 2002 FINGER TRIGGER RELEASE 2009 GASTRIC BYPASS SURGERY 2004 HYSTERECTOMY 05/14/1980 JOINT REPLACEMENT Bilateral 2007 2007 KNEE ARTHROSCOPY 2005 LAPAROSCOPY 01/27/2015 LAPAROTOMY 2008 ROTATOR CUFF REPAIR 2005 SPINE SURGERY TONSILLECTOMY 1964 UPPER GASTROINTESTINAL ENDOSCOPY N/A 12/18/2017 Procedure: EGD; Surgeon: Luther Brito MD; Location: [facility] MED[facility] PROC[facility]URE UN[facility] CURRENT MEDICATIONS Current [...] Days Morelia Thapa MD 1,000 mcg at 08/15/19 0920 ALLERGIES Allergies Allergen Reactions Ensure Diarrhea Food Diarrhea Lactose Sgbguofgpv-Kgw-Zvlp-Codeine Other (See Comments) Balance problems Codeine Sulfate Nausea Only Food Allergy Formula Diarrhea Ensure Levofloxacin Hives, Itching and Rash Butalbital Ropinirole Amitriptyline Hcl Other (See Comments) Confused and questionable for seizures Yavechbnjs-Kmdc-Xpvtvzny Rash duplicate Xczrexuujj-Yuqe-Dwubtgug Hives and Rash Cephalexin Hives Ciprofloxacin Hives and Rash Clarithromycin Hives and Rash Clindamycin Hcl Hives and Rash Doxycycline Rash Duloxetine Other (See Comments) Migraines and nausea Ketorolac Hives Levofloxacin Hives and Rash Morphine Swelling Penicillins Hives and Rash Ropinirole Hcl Hives Sulfamethoxazole-Trimethoprim Hives and Rash Tramadol Hcl Nausea Only FOLLOW-UP No follow-ups on file. Notes: 1. Parts of this documentwere created using [employer] - innovate | mentor | invest speech recognition software. As a resu lt, there may be unintended word spelling errors. Every attempt was made to correct the di ctation. doculeida colin in this encounter Miscellaneous Notes Addendum Note - John Thapa MD - 08/15/2019 9:00 AM PST Addended by: JOHN HOPKINS on: 08/15/2019 10:11 AM Modules accepted: Level of Service dojannet barrera in this encounter Plan of Treatment +--------+---------+ + + + | Date | Type | Specialty | Care Team | Description | +--------+---------+ + + + | 05/17/ | Office | Internal Medicine | Alanis, | | 2019 | Visit | | MD John | | | | | | [address] | | | | | | [place] [address] | | | | | | [phone] | | | | | | | [...] | | | | First dose on [facility] 10/15/17 at 1215 | | | [...]
--- OUTSIDE RECORDS SUMMARY | ~2020-02-29 | XMS | Encounter Summary ---
Demographics + + + | Address | [address] | | | [place] [address] | + + + | Home Phone [...] Providers + +------+ + | Care Tube Puller Name | Role | Phone | + [...] + + | 09/04/ | Refill | [facility] | Alanis, | Medication Refill | | 2018 | | MEDICINE [address] | MD Petrona | | | | | [place], | [address] [facility] | | | | | [place] [address] | [place] [address] | | | | | [phone] | [phone] | | | | | | | [...] [place] | | | | | | [place] [address] | | | | | | [phone] | | | | | | | | +--------+---------+ + + + documented as of this encounter Visit Diagnoses Not on filedocumented in this encounter"
--- OUTSIDE RECORDS SUMMARY | ~2020-02-29 | XMS | Encounter Summary ---
Demographics + + + | Address | [address] | | | [place] [address] | + + + | Home Phone [...] Team Providers + +------+ + | Care Gyro Compass Tester Name | Role | Phone | + +------+ + | Maria Esther Cintron MD | PCP | | + +------+ + Reason for Visit + +--------+ + | Reason | Onset | Comments | | | Date | | + +--------+ + | Lab findings, | 08/12/ | | | teaching, guidance, | 2006 | | | and counseling | | [...] | and counseling | | | | [facility] | [place], [place] | | | | | and Healing, | [address] | | | | | [place] [address], [facility] | [phone] | | | | | [place], [place] | | | | | | [address] | | | | | | [phone] | | | +--------+ + + + [...] this encounter Miscellaneous Notes Telephone Encounter - Noelle Rosa - 08/13/2006 8:29 AM PSTPatient calling bessy cortes to f/u regarding lab results. See message below regarding B12. elephone Encounter - Precious Trna - 4:44 PM PSTPt called today regarding her last lab results, she was told they found too mu ch vitamin B12, she would like to know what she is to do about this. Please call her.Electro nically signed by Precious Tran at 08/12/2006 4:44 PM PSTdocumented in this encounter Plan of Treatment Not on filedocumented as of this encounter Visit Diagnoses Not on filedocumented in this encounter"
--- OUTSIDE RECORDS SUMMARY | ~2020-02-29 | XMS | Encounter Summary ---
Demographics + + + | Address | [address] | | | [place] [address] | + + + | Home Phone [...] Providers + +------+ + | Care Sql Architect Name | Role | Phone | [...] + + | 05/16/ | Office | [facility] | Alanis, | Chronic diarrhea | | 2019 | Visit | MEDICINE [address] [place] [address] | MD Petrona | (Primary Dx); | | | | [address] [place], | [address] [facility] | [place] | | | | [place] [address] | [place] [address] | gastric bypass; | | | | [phone] | [phone] | Fibromyalgia; Fatty | | | | [...] Common migraine COPD (chronic obstructive pulmonary disease) ([facility]) Depression Diarrhea Dumping syndrome Fall at home Fatigue fracture of vertebra Fibromyalgia Full dentures GERD (gastroesophageal reflux disease) Glaucoma Hyperparathyroidism ([facility]) Hypothyroidism IBS (irritable bowel syndrome) Idiopathic scoliosis Leg edema Low back pain Lumbar postlaminectomy syndrome Lumbar radiculopathy primarily right 01/04/2015 Meniere syndrome Migraine with aura Migraines Muscle cramping Muscle spasm Myalgia Nausea Nonalcoholic hepatosteatosis Obesity Opioid dependence ([facility]) Orthostatic hypotension OLIVER (obstructive sleep apnea) Osteoarthritis, [...] Procedure: COLONOSCOPY; Surgeon: Luther Brito MD; Location: [facility] MEDICAL PROCEDURE UNIT DILATION AND CURETTAGE OF UTERUS ELBOW SURGERY FINGER TRIGGER RELEASE 2002 FINGER TRIGGER RELEASE 2009 GASTRIC BYPASS SURGERY 2004 HYSTERECTOMY 05/14/1980 JOINT REPLACEMENT Bilateral 2006 2007 KNEE ARTHROSCOPY 2004 LAPAROSCOPY 01/27/2015 LAPAROTOMY 2008 ROTATOR CUFF REPAIR 2004 SPINE SURGERY TONSILLECTOMY 1964 UPPER GASTROINTESTINAL ENDOSCOPY N/A 12/18/2017 Procedure: EGD; Surgeon: Luther Brito MD; Location: [facility] MEDICAL PROCEDURE UNIT CURRENT MEDICATIONS Current [...] Allergen Reactions Ensure Diarrhea Food Diarrhea Lactose Nnswzljona-Bcn-Cqun-Codeine Other (See Comments) Balance problems Codeine Sulfate Nausea Only Food Allergy Formula Diarrhea Ensure Levofloxacin Hives, Itching and Rash Butalbital Ropinirole Amitriptyline Hcl Other (See Comments) Confused and questionable for seizures Qootqwojuo-Xslt-Pzxbrerq Rash duplicate Dqiatabgwp-Ohhq-Caazcggj Hives and Rash Cephalexin Hives Ciprofloxacin Hives [...] 1. Parts of this documentwere created using [employer] speech recognition software. As a resu lt, [...] | | | | | | [address] [place] [address] [place] | | | | | | [place] [address] | | | | | | [phone] | | | | | | | [...]
--- OUTSIDE RECORDS SUMMARY | ~2020-02-29 | XMS | Encounter Summary ---
Demographics + + + | Address | [address] | | | [place] [address] | + + + | Home Phone [...] Providers + +------+ + | Care Agricultural Research Engineer Name | Role | Phone | + +------+ + | Pedrito Gutierrez MD | PCP | | + +------+ + Reason for Visit + +--------+ + | Reason | Onset | Comments | | | Date | | + +--------+ + | Diarrhea | 02/14/ | | | | 2007 | | [...] [address] | | | | | Bethanie Mailcode: CH4S | [facility] | | | | | [facility] | [place], [place] | | | | | and Healing, | [address] | | | | | [facility] | [phone] | | | | | Floor [place], [place] | | | | | | [address] | | | | | | [phone] | | | +--------+ + + + [...] Notes Telephone Encounter - Kenisha Melton - 02/15/2008 6:12 PM PDT6 weeks out from Indra rivera, history of gastric bypass. Loose stools from 5-25 times today. To see her PCP, have a C diff done, then can start on Immodium if neg. elephone Encounter - Precious Tran - 02/15/2008 1:59 PM Gini Meehan calling in to report chronic diarrhea since Thursday. She's wondering if this has s omething to do with her surgery. Pt requests a call back to discuss. States she's feeling ve ry weak. Pain Scale: n/a Recent Surgery or Procedure: yes - surgery around 12/26 Pharmacy: Pharmacy Preferences: [address] [place] [address] 9AM-9PM THU-THU / 9AM-7PM SAT / 10AM-6PM SUN documented in this encounter Plan of Treatment Not on filedocumented as of this encounter Visit Diagnoses Not on filedocumented in this encounter"
--- OUTSIDE RECORDS SUMMARY | ~2020-02-29 | XMS | Encounter Summary ---
Demographics + + + | Address | [address] | | | [place] [address] | + + + | Home Phone [...] Providers + +------+ + | Care Black And White Printer Operator Name | Role | Phone | [...] as of this encounter Progress Notes Interface, Grain Farmer In - 08/19/2005 2:05 AM PST [id number] [facility] Date: 07/24/2005 Clinic: Hematology [...] full and complete summary. Lukasz Sellers M.D. car sales representative NANCY / SHARIF [id number] / [id number] / [id number] / [id number] cc: Pedrito Gutierrez M.D. [address] [address] Electronically signed by Lukasz Sellers 08-18-2005 01:28:24 PM documented i n this encounter Plan of Treatment Not on filedocumented as of this encounter Visit Diagnoses Not on filedocumented in this encounter"
--- OUTSIDE RECORDS SUMMARY | ~2020-02-29 | XMS | Encounter Summary ---
Demographics + + + | Address | [address] | | | [place] [address] | + + + | Home Phone [...] Team Providers + +------+ + | Care Outside Property Agent Name | Role | Phone | [...] | | 2019 | Support | MEDICINE [address] [place] [address] | MD Petrona | | | | | [place], | [address] [place] [address] | | | | | [place] [address] | [place] [address] | | | | | [phone] | [phone] | | | | | | | [...] as of this encounter Progress Teresa Tolbert, Refrigerator Repair Technician - 09/15/2019 10:15 AM PDTFormatting of this note calderon ht be different from the original. Administrations This Visit cyanocobalamin (VITAMIN B-12) injection 1,000 mcg Admin Date 09/15/2019 Action Given Dose 1000 mcg Route Intramuscular Administered By Teresa Mitchell Refrigerator Repair Technician do cumented in this encounter Plan of Treatment +--------+---------+ + + + | Date | Type | Specialty | Care Team | Description | +--------+---------+ + + + | 05/17/ | Office | Internal Medicine | [place], | | | 2019 | Visit | | MD Petrona | | | | | | [address] | | | | | | [place] [address] | | | | | | [phone] | | | | | | | [...] | | | First dose on [facility] 10/15/17 at 1215 | | | [...]
--- OUTSIDE RECORDS SUMMARY | ~2020-02-29 | XMS | Encounter Summary ---
Demographics + + + | Address | [address] | | | [place] [address] | + + + | Home Phone [...] Team Providers + +------+ + | Care English Faculty Member Name | Role | Phone [...] | | Urinary | MD Chris | Gen[facility]agdalene Ch[facility] | | | | | incontinence | [address] | [address] | | | | | Procedures | Jayce Kovacs | | | | | CONSULT TO | [address] | Mailcode: | | | | | SURGERY - | [place], [place] | [facility] | | | | | UROLOGY | [address] | for Health | | | | | | Phone: | and [place], | | | | | | [phone] | Building 1, | | | | | | Fax: | 10th Floor | | | | | | [phone] | [place], [place] | | | | | | | [address] | | | | | | | Phone: | | | | | | | [phone] | | | | | | | Fax: | | | | | | | [phone] | +--------+--------+ + + + + Reason [...] Incontinence | | 2006 | Visit | [place] [address] | [address] | (Primary Dx); | | | | Beth[place] Mailcode: CH4S | [address] | Status Post | | | | [facility] | [place], [place] | Bariatric Surgery | | | | and Healing, | [address] | | | | | [facility] | [phone] | | | | | Floor [place], [place] | | | | | | [address] | | | | | | [phone] | | | +--------+---------+ + + + [...] Notes Chris Padgett - 10/29/2006 2:13 PM PDTMs Meehan is a 46 y.o. Female who [...] coughing. Medications: Fentanyl 25 mcg 72 hours, Matteson/JOJO 10 mg/325 mg PRN Q 6 hrs, [...]
--- OUTSIDE RECORDS SUMMARY | ~2020-02-29 | XMS | Encounter Summary ---
Demographics + + + | Address | [address] | | | [place] [address] | + + + | Home Phone [...] Team Providers + +------+ + | Care Instant Printer Operator Name | Role | Phone [...] + | 10/09/ | Refill | [facility] | [place], | Medication Refill | | 2017 | | [facility] [address] | MD Petrona | | | | | [place], | [address] [place] | | | | | [place] [address] | [place] [address] | | | | | [phone] | [phone] | | | | | | | [...] | | | | | [place] [address] | | | | | | [phone] | | | | | | | | +--------+---------+ + + + documented as of this encounter Visit Diagnoses Not on filedocumented in this encounter"
--- OUTSIDE RECORDS SUMMARY | ~2020-02-29 | XMS | Encounter Summary ---
Demographics + + + | Address | [address] | | | [place] [address] | + + + | Home Phone [...] Team Providers + +------+ + | Care Secretary Receptionist Name | Role | Phone | [...] as of this encounter Discharge Summaries Interface, Receiving Operator In - 01/12/2005 6:32 AM PDTAdmission Date: [...] M.D., D.MKyrie. Chris Padgett M.D. CLAIRE/carolynn A [phone] cc: documente d in this encounter Plan of Treatment Not on filedocumented as of this encounter Visit Diagnoses Not on filedocumented in this encounter"
--- OUTSIDE RECORDS SUMMARY | ~2020-02-29 | XMS | Encounter Summary ---
Demographics + + + | Address | [address] | | | [place] [address] | + + + | Home Phone [...] Team Providers + +------+ + | Care Geodetic Survey Director Name | Role | Phone | [...] + + | 10/19/ | Telephone | [facility] | [place], | Lab Order | | 2017 | | MEDICINE [address] | MD Petrona | | | | | [place], | [address] [facility] | | | | | [place] [address] | [place] [address] | | | | | [phone] | [phone] | | | | | | | [...] they could be called to [facility] in [place]. Nguyễn de would like a call back [...] | | | | | [place] [address] | | | | | | [phone] | | | | | | | | +--------+---------+ + + + documented as of this encounter Visit Diagnoses Not on filedocumented in this encounter"
--- OUTSIDE RECORDS SUMMARY | ~2020-02-29 | XMS | Encounter Summary ---
Demographics + + + | Address | [address] | | | [place] [address] | + + + | Home Phone [...] Providers + +------+ + | Care Deckhand Clam Dredge Name | Role | Phone | + [...] + + | 10/16/ | Telephone | [facility] | Alanis, | Illness | | 2019 | | MEDICINE [address] | MD Petrona | | | | | [place], | [address] [facility] | | | | | [place] [address] | [place] [address] | | | | | [phone] | [phone] | | | | | | | [...] Petrona | | | | | | [address] [place] [address] [place] | | | | | | [place] [address] | | | | | | [phone] | | | | | | | | +--------+---------+ + + + documented as of this encounter Visit Diagnoses Not on filedocumented in this encounter
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
--- OUTSIDE RECORDS SUMMARY | ~2020-02-29 | XMS | Encounter Summary ---
Demographics + + + | Address | [address] | | | [place] [address] | + + + | Home Phone [...] Providers + +------+ + | Care Correspondence Representative Name | Role | Phone | [...] + + | Authorized | Specialty | Dermatology | Diagnoses | | | | | Services | | Skin lesion | Emmy-Tajt | | | | Required | | of left leg | i, | | | | | | | Petrona | | | | | | | , MD [address] | | | | | [address] | | | | | | | [place], | | | | | | | [place] | | | | | | | [address] | | | | | | | Phone: | | | | | | | [phone] | | | | | | | Fax: | | | | | | | [phone] | | + + + + + + + Reason for Visit + +--------+ + | Reason | Onset | Comments | | | Date | | + +--------+ + | Referral Question | 02/15/ | | | | 2020 | | + +--------+ + Encounter Details +--------+ + + + + | Date | Type | Department | Care Team | Description | +--------+ + + + + | 02/15/ | Telephone | [facility] | Alanis, | Referral Question | | 2019 | | MEDICINE [address] | MD Petrona | | | | | [place], | [address] [facility] | | | | | [place] [address] | [place] [address] | | | | | [phone] | [phone] | | | | | | | [...] encounter Miscellaneous Notes Telephone Encounter - Teresa Mitchell, Grants Manager - 02/16/2020 1:53 PM PDTForma tting of this note might be different from the original. [facility] Dermatology and [facility] DERM Are not taking any [place] Medicaid pts not even as a s econdary ins. I have closed this referral. OPTION is Dr Truong Lovell at [facility] D[facility]atology in [place] I HAVE CLOSED THIS REFERRAL SINCE A NEW ORDER WILL BE NEEDED New order pended for patient. documented in this encounter Plan of Treatment +--------+---------+ + + + | Date | Type | Specialty | Care Team | Description | +--------+---------+ + + + | 05/17/ | Office | Internal Medicine | Alanis, | | | 2019 | Visit | | MD Petrona | | | | | | [address] [place] | | | | | | [place] [address] | | | | | | [phone] | | | | | | | | +--------+---------+ + + + + + +--------+ + + | Name | Type | Priori | Associated Diagnoses | Order Schedule | | | | ty | | | + + +--------+ + + | Dermatology, | Outpatient | Routin | Skin lesion of | Expected: | | External - AMB | Referral | e | left leg | 02/16/2020, Expires: | | Referral | | | | 02/15/2021 | + + +--------+ + + documented as of this encounter Visit Diagnoses + + | Diagnosis | + + | Skin lesion of left leg - Primary Unspecified disorder of skin and subcutaneous | | tissue | + + documented in this encounter"
--- OUTSIDE RECORDS SUMMARY | ~2020-02-29 | XMS | Encounter Summary ---
Demographics + + + | Address | [address] | | | [place] [address] | + + + | Home Phone [...] Team Providers + +------+ + | Care Cvicu Rn Name | Role | Phone | [...] as of this encounter Progress Notes Interface, Receptionist Scheduler In - 01/11/2005 6:26 PM PDT Referred [...] blindness. History was obtained from the patient, [facility] medical records, and two magnetic resonance scans [...] any point. She has been seen her airport utility worker in [facility], Dr. Lc Renteria, who by her report [...] to a blood transfusion in the early 1980s. 6. Fibromyalgia. MEDICATIONS: 1. Inderal 160 mg [...] and fibromyalgia. SOCIAL HISTORY: Patient lives in [facility] with her eldest son. She supports herself [...] acute distress. She does have a right-sided [place] crutch which she uses to enter and [...] biceps, triceps, wrist extensors, finger extensors, hand medical corps officer, hip flexors and extensors, and ankle, plantar, and dorsiflexors as well as knee flexors and extensors. There is no pronator drift. Reflexes are 2+ and symmetrical at the biceps, triceps, brachioradialis, patellar, and ankle regions. Toes are downgoing to plantar stimulation. Light touch and tuning fork is within normal limits in the lower extremities. Qaqbkr-ml-hzvv and fine finger movements are within normal [...] TO: Dwaine Al M.D., General Surgery Dwaine Amin M.D., Neurophthalmology cc: CRYSTAL CARTER M.D. [facility] [address] [facility] [id number] signed by Interface, Receptionist Scheduler In at 2004 6:26 PM PDTdocumented in this encounter Plan of Treatment Not on filedocumented as of this encounter Visit Diagnoses Not on filedocumented in this encounter"
--- OUTSIDE RECORDS SUMMARY | ~2020-02-29 | XMS | Encounter Summary ---
Demographics + + + | Address | [address] | | | [place] [address] | + + + | Home Phone [...] Providers + +------+ + | Care Records Analyst Name | Role | Phone | + +------+ + | Petrona Thapa | PCP | | | MD | | | + +------+ + Reason for Visit + +--------+ + | Reason | Onset | Comments | | | Date | | + +--------+ + | Lab Results | 04/19/ | | | | 2018 | | + +--------+ + Encounter Details +--------+ + + + + | Date | Type | Department | Care Team | Description | +--------+ + + + + | 04/19/ | Telephone | [facility] | Alanis, | Lab Results | | 2018 | | MEDICINE [address] | MD Petrona | | | | | [place], | [address] [facility] | | | | | [place] [address] | [place] [address] | | | | | [phone] | [phone] | | | | | | | [...] Telephone Encounter - Maggie Montoya LPN - 04/19/2019 1:13 PM PSTLeft message on patient's voicemail regarding lab results with comments/recommendations elephone Encounter - Maggie Montoya LPN - 019 1:13 PM PST----- Message from Petrona Thapa MD sent at 04/19/2019 8:39 PS T ----- She can take a break from B12 injections, her level is quite high at this point. One of her liver enzymes is slightly elevated, likely in the context of fatty liver.Electro nically signed by Maggie Montoya LPN at 04/19/2019 1:13 PM PSTdocumented in this encounter Plan of Treatment +--------+---------+ + + + | Date | Type | Specialty | Care Team | Description | +--------+---------+ + + + | 05/17/ | Office | Internal Medicine | Alanis, | | | 2019 | Visit | | MD Petrona | | | | | | [address] | | | | | | [place] [address] | | | | | | [phone] | | | | | | | | +--------+---------+ + + + documented as of this encounter Visit Diagnoses Not on filedocumented in this encounter"
--- OUTSIDE RECORDS SUMMARY | ~2020-02-29 | XMS | Encounter Summary ---
Demographics + + + | Address | [address] | | | [place] [address] | + + + | Home Phone [...] Providers + +------+ + | Care Broom Handle Dipper Name | Role | Phone | [...] + + | 11/20/ | Refill | [facility] INTER[facility] | Alanis, | Medication Refill | | 2017 | | MEDICINE [address] | MD Petrona | | | | | [place], | [address] [facility] | | | | | [place] [address] | [place] [address] | | | | | [phone] | [phone] | | | | | | | [...] | | | | | [place] [address] | | | | | | [phone] | | | | | | | | +--------+---------+ + + + documented as of this encounter Visit Diagnoses Not on filedocumented in this encounter"
--- OUTSIDE RECORDS SUMMARY | ~2020-02-29 | XMS | Encounter Summary ---
Demographics + + + | Address | [address] | | | [place] [address] | + + + | Home Phone [...] Team Providers + +------+ + | Care Perianesthesia Rn Name | Role | Phone | + +------+ + | Pedrito Gutierrez MD | PCP | | + +------+ + Reason for Visit + +--------+ + | Reason | Onset | Comments | | | Date | | + +--------+ + | Follow-up visit | 09/09/ | | | | 2006 | | + +--------+ + Encounter Details +--------+---------+ + + + | Date | Type | Department | Care Team | Description | +--------+---------+ + + + | 09/09/ | Office | [facility] | Lukasz Charles, | Major Depressive | | 2006 | Visit | [address] | PhD [address] | Disorder, Recurrent | | | | [facility] | [place], [place] | Episode, Moderate | | | | and Healing, | [address] | ([facility]); 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 Diagnosis: [place] I: 1. (296.32) Major depressive disorder, recurrent, moderate. 2. (309.24) Adjustment disorder with anxiety. 3. (307.89) Chronic pain disorder associated with both psychological factors and a gene ral medical condition. [place] II: Deferred [place] III: abdominal pain, migraine headache, low back pain. [place] IV: low finances [place] V: GAF 50 Plan: Return in 2 weeks. Check preparation for niece's visit, [employer], pacing, relaxation, ac tivity, distraction. Check managing Pain... book. Continue cognitive/behavioral therapy. Total time spent with patient was approximately 45 minutes. LUKASZ CHARLES PHD [facility] [address] [facility], 4th [place] [address] documented in this encount er Plan of Treatment + + +--------+ + + | Name | Type | Priori | Associated Diagnoses | Order Schedule | | | | ty | | | + + +--------+ + + | [place] PSYCHOTHERPY, | Procedures | Routin | Major Depressive | Ordered: 09/09/2006 | | OFFICE (50-19) | | e | Disorder, Recurrent | | | | | | Episode, Moderate | | | | | | ([facility]) DJD | | | | | | [...]
--- OUTSIDE RECORDS SUMMARY | ~2020-02-29 | XMS | Encounter Summary ---
Demographics + + + | Address | [address] | | | [place] [address] | + + + | Home Phone [...] Team Providers + +------+ + | Care Forming Mill Operator Name | Role | Phone [...] as of this encounter Progress Notes Interface, Bread Supervisor In - 03/26/2006 1:05 AM [facility] [place] [address] [address] or February 22, 2001 Pedrito Gutierrez M.D. [address] [address] RE: BELINDA MEEHAN MR #: [id number] Dear [...] regarding this patient. Sincerely, Issac Meeks M.D. photoengraver apprentice Division of Endocrinology, Diabetes, and Clinical Bilingual Interpreter, Metabolic Disorders Clinic PBD / [id number] / [id number] / [id number] / [id number] signed by Interface, Bread Supervisor In at 03/26/2006 1:05 AM PDTdocume nted in this encounter Plan of Treatment Not on filedocumented as of this encounter Visit Diagnoses Not on filedocumented in this encounter
--- OUTSIDE RECORDS SUMMARY | ~2020-02-29 | XMS | Encounter Summary ---
Demographics + + + | Address | [address] | | | [place] [address] | + + + | Home Phone [...] Team Providers + +------+ + | Care Junior Web Developer Name | Role | Phone | [...] + + | 09/30/ | Refill | [facility] | Alanis, | Medication Refill | | 2018 | | MEDICINE [address] | MD Petrona | | | | | [place], | [address] [facility] | | | | | [place] [address] | [place] [address] | | | | | [phone] | [phone] | | | | | | | [...] Telephone Encounter - Maggie Montoya LPN - 10/01/2018 9:27 AM PDTRx pended to for appro didier. Last appt: 09/15/18 No upcoming appt scheduled documented in this encounter Plan of Treatment +--------+---------+ + + + | Date | Type | Specialty | Care Team | Description | +--------+---------+ + + + | 05/17/ | Office | Internal Medicine | Alanis, | | | 2019 | Visit | | MD Petrona | | | | | | [address] [place] | | | | | | [place] [address] | | | | | | [phone] | | | | | | | | +--------+---------+ + + + documented as of this encounter Visit Diagnoses Not on filedocumented in this encounter"
--- OUTSIDE RECORDS SUMMARY | ~2020-02-29 | XMS | Encounter Summary ---
Demographics + + + | Address | [address] | | | [place] [address] | + + + | Home Phone [...] Team Providers + +------+ + | Care Solutions Market Consultant Name | Role | Phone | [...] + + | 04/25/ | Telephone | [facility] | Alanis, | Paperwork; Pre-Op | | 2018 | | MEDICINE [address] | MD Petrona | | | | | [place], | [address] [place] | | | | | [place] [address] | [place] [address] | | | | | [phone] | [phone] | | | | | | | [...] Rasmussen - 04/25/2019 9:16 AM PSTTanya with [facility] norm colin stating that they [...] | | | | | | [place] [address] | | | | | | [phone] | | | | | | | | +--------+---------+ + + + documented as of this encounter Visit Diagnoses Not on filedocumented in this encounter"
--- OUTSIDE RECORDS SUMMARY | ~2020-02-29 | XMS | Encounter Summary ---
Demographics + + + | Address | [address] | | | [place] [address] | + + + | Home Phone [...] Providers + +------+ + | Care Emergency Doctor Name | Role | Phone | + +------+ + PCP | Unavailable | + +------+ + Encounter Details +--------+ + + + + | Date | Type | Department | Care Team | Description | +--------+ + + + + | 07/31/ | Hospital | [facility] | Ruben Tobias | | | 2005 | Encounter | MED CTR SLEEP | MD Raji [address] | | | | | [place] [address] [place] | | | | | [place], [place] | [place] [address] | | | | | [address] | [phone] | | | | | [phone] | | | +--------+ + + + [...] | 2019 | Visit | | MD ePtrona | | | | | | [address] | | | | | | [place] [address] | | | | | | [phone] | | | | | | | | +--------+---------+ + + + documented as of this encounter Visit Diagnoses Not on filedocumented in this encounter"
--- OUTSIDE RECORDS SUMMARY | ~2020-02-29 | XMS | Encounter Summary ---
Demographics + + + | Address | [address] | | | [place] [address] | + + + | Home Phone [...] Providers + +------+ + | Care Employment Representative Name | Role | Phone | + +------+ + | Pedrito Gutierrez MD | PCP | | + +------+ + Reason for Visit + +--------+ + | Reason | Onset | Comments | | | Date | | + +--------+ + | Medication Questions | 08/14/ | | | | 2006 | | [...] [address] | | | | | | [place], [place] | | | | | | [address] | | | | | | [phone] | | | +--------+ + + + [...] this encounter Miscellaneous Notes Telephone Encounter - Miranda Lambert - 08/14/2006 5:34 PM PSTMSIR is new for her, not a l ikely side effect. Trileptal I said she could increase, have her go back to the 150mg bid till I see her for f angelica up Thank you for calling her on Thursday 5 :34 PM PSTTelephone Encounter - Tasha Nolasco - 08/14/2006 3:52 PM PSTJoannjennifer, I receive a call from Belinda today regarding her meds trileptal and morphine, she has been having some tingling in her left arm starting at the elbow and working down to her fingers.i buprofen did look in my nursing med bk on these 2 meds and found that this was not a side ef fect from either one of these meds, but I did tell her I would check with you and get back t o her on Thursday.. documented i n this encounter Plan of Treatment Not on filedocumented as of this encounter Visit Diagnoses Not on filedocumented in this encounter"
--- OUTSIDE RECORDS SUMMARY | ~2020-02-29 | XMS | Encounter Summary ---
Demographics + + + | Address | [address] | | | [place] [address] | + + + | Home Phone [...] Providers + +------+ + | Care Licensed Practical Nurse Clinic Nurse Name | Role | Phone | [...]
--- OUTSIDE RECORDS SUMMARY | ~2020-02-29 | XMS | Encounter Summary ---
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 She is doing PT as this point. With some benefit. She is concerned because she now has some poppin mahesh dlocking symptoms and wants to know if there si something that bottom bleacher be done w ith a scope to [...] (ciprofloxacin) Tramadol Morphine IM ( only in [facility]) made gut pain worse 08/27/06: Trial of [...] gait, soft tissue tenderness over me d jont li ne, reduced range of motion, negative drawer [...] the MRI. Ramon Ibarra M.D. Sports Medicine [facility] Orthopaedics and Rehabilitation [address] [place] [address] [phone] documented in this encoun ter Plan of [...] POZO, | | | | | | MNajma-Radiologist 2: | | | | | | [...] | | + +---------+ + + | [facility] DEPARTMENT OF | | | | [...]
--- OUTSIDE RECORDS SUMMARY | ~2020-02-29 | XMS | Encounter Summary ---
Demographics + + + | Address | [address] | | | [place] [address] | + + + | Home Phone [...] Providers + +------+ + | Care Counter Top Maker Name | Role | Phone | + +------+ + | Petrona Thapa | PCP | | | MD | | | + +------+ + Reason for Visit + +--------+ + | Reason | Onset | Comments | | | Date | | + +--------+ + | Leg Swelling | 11/12/ | | | | 2017 | | + +--------+ + Encounter Details +--------+ + + + + | Date | Type | Department | Care Team | Description | +--------+ + + + + | 11/12/ | Telephone | [facility] | Alanis, | Leg Swelling | | 2017 | | MEDICINE [address] | MD Petrona | | | | | [place], | [address] [place] | | | | | [place] [address] | [place] [address] | | | | | [phone] | [phone] | | | | | | | [...] Telephone Encounter - Maggie Montoya LPN - 11/12/2017 1:56 PM PDTSpoke with patient and sh e states that it is her right hip that is hurting, burning in the leg has stopped at this ti me, some swelling and is wearing her holly hose and keeping leg elevated. Advised to seek medi wendi attention if swelling worsens for has difficulty ambulating. Patient understands and acc epts. Patient does has a follow up appt with PCP on 11/17/17 will discuss at that appt.Electro nically signed by Maggie Montoya LPN at 11/12/2017 2:00 PM PDTTelephone Encounter - Juliane Elena - 11/12/2017 1:05 PM PDTPatient called stating she has a right swelling, not red or purple. Not hot to the touch, but it wilde. Swelling goes all they up to her right hip as well, scheduled for 11/17/17, please advise.Maida ctronically signed by Juliane Elena at 11/12/2017 1:06 PM PDTdocumented in this encounter Plan of [...] | | | | | [place] [address] | | | | | | [phone] | | | | | | | | +--------+---------+ + + + documented as of this encounter Visit Diagnoses Not on filedocumented in this encounter"
--- OUTSIDE RECORDS SUMMARY | ~2020-02-29 | XMS | Encounter Summary ---
Demographics + + + | Address | [address] | | | [place] [address] | + + + | Home Phone [...] Team Providers + +------+ + | Care Cashier Ticket Selling Name | Role | Phone | + [...] as of this encounter Progress Notes Interface, Patrol Sergeant Sheriff'S Office In - 01/11/2005 11:07 PM PDT Referred [...] is being seen by an orthopedist in [place]. She brings her brace today which she states is going well. The patient, however, yesterday awoke with neck stiffness and pain with spasming type pains in the area of her neck. She was seen in the emergency room last night in [place] for injection after a migraine. She states [...] the above plans. Aissatou De Jesus M.D. Joanna Rosario/derek P [phone] cc: Pedrito Gutierrez MD [address] [place], [place] [id number] signed by Interface, Patrol Sergeant Sheriff'S Office In at 5 11:07 PM PDTdocumented in this encounter Plan of Treatment Not on filedocumented as of this encounter Visit Diagnoses Not on filedocumented in this encounter"
--- OUTSIDE RECORDS SUMMARY | ~2020-02-29 | XMS | Encounter Summary ---
Demographics + + + | Address | [address] | | | [place] [address] | + + + | Home Phone [...] Providers + +------+ + | Care Household Manager Name | Role | Phone | + +------+ + | Petrona Thapa | PCP | | | MD | | | + +------+ + Reason for Visit + +--------+ + | Reason | Onset | Comments | | | Date | | + +--------+ + | Fall | 09/03/ | | | | 2018 | | + +--------+ + | Hip Pain | 09/03/ | | | | 2018 | | + +--------+ + Encounter Details +--------+ + + + + | Date | Type | Department | Care Team | Description | +--------+ + + + + | 09/03/ | Telephone | [facility] [place] [facility] | Alanis, | Fall; Hip Pain | | 2018 | | MEDICINE [address] | MD Petrona | | | | | [place], | [address] | | | | | [place] [address] | [place] [address] | | | | | [phone] | [phone] | | | | | | | [...] Telephone Encounter - Maggie Montoya LPN - 09/03/2018 11:19 AM PDTPatient notified that sugar del castillo need an evaluation before x-rays are ordered. MD out of the office and will need to seek m edical attention from . Patient understands and accepts elephone Encounter - Astrid Grant - 09/03/2018 10:28 A John Rubalcava called requesting a nurse to call her regarding some left hip pain. She fell about 6 months ago and is wanting to get a xray. She can be reached [phone]. 10:3 0 AM PDTdocumented in this encounter Plan of [...] | | | | | [place] [address] | | | | | | [phone] | | | | | | | | +--------+---------+ + + + documented as of this encounter Visit Diagnoses Not on filedocumented in this encounter"
--- OUTSIDE RECORDS SUMMARY | ~2020-02-29 | XMS | Encounter Summary ---
Demographics + + + | Address | [address] | | | [place] [address] | + + + | Home Phone [...] Team Providers + +------+ + | Care Product/Industry Consultant Name | Role | Phone | [...] | | | | Mailcode: CR131 | [place], [place] | | | | | Outpatient Clinic | [address] | | | | | [facility], | [phone] | | | | | [place] [address] | | | | | | [phone] | | | +--------+ + + + [...] | | | | | 2,SERUM | [facility] | | | | | | [facility]. | | | | + + + + + + + + | Specimen | + + | | + + + + + + + | Performing | Address | City/State/Zipcode | Phone Number | | Organization | | | | + + + + + | [facility] | [address] | [place] [address] | | | LABORATORY | | | | + + + + + documented in this encounter Visit Diagnoses Not on filedocumented in this encounter"
--- OUTSIDE RECORDS SUMMARY | ~2020-02-29 | XMS | Encounter Summary ---
Demographics + + + | Address | [address] | | | [place] [address] | + + + | Home Phone [...] Providers + +------+ + | Care Motor Block Mechanic Name | Role | Phone [...] + + | 12/26/ | Refill | [facility] | Alanis, | Medication Refill | | 2017 | | MEDICINE [address] | MD Petrona | | | | | [place], | [address] [facility] | | | | | [place] [address] | [place] [address] | | | | | [phone] | [phone] | | | | | | | [...] | | | | | [place] [address] | | | | | | [phone] | | | | | | | | +--------+---------+ + + + documented as of this encounter Visit Diagnoses Not on filedocumented in this encounter"
--- OUTSIDE RECORDS SUMMARY | ~2020-02-29 | XMS | Encounter Summary ---
Demographics + + + | Address | [address] | | | [place] [address] | + + + | Home Phone [...] Team Providers + +------+ + | Care Coat Repair Inspector Name | Role | Phone | [...] as of this encounter Progress Notes Interface, Pulp Screen Operator In - 04/07/2006 2:32 AM PDT [id number] GE[place]NI [place] [id number] Clinic Date: 04/01/2006 Clinic: Rheumatology Belinda Meehan is here for a couple of trigger point injections. She comes from [place]. Tomorrow, she is due for an EGD [...] 4 months. Caitlin Rivera M.S., F.N.P. / [id number] / [id number] / [id number] / [id number] Electronically signed by Caitlin Rivera 04-06-2006 03:23:35 PM documented i n this encounter Plan of Treatment Not on filedocumented as of this encounter Visit Diagnoses Not on filedocumented in this encounter"
--- OUTSIDE RECORDS SUMMARY | ~2020-02-29 | XMS | Encounter Summary ---
Demographics + + + | Address | [address] | | | [place] [address] | + + + | Home Phone [...] Providers + +------+ + | Care Airline Attendant Name | Role | Phone | + +------+ + | ePtrona Thapa | PCP | | | MD [...] + + | 06/17/ | Telephone | [facility] | Alanis, | Referral | | 2019 | | MEDICINE [address] | MD Petrona | | | | | [place], | [address] [facility] | | | | | [place] [address] | [place] [address] | | | | | [phone] | [phone] | | | | | | | [...] would like to see it is Dr. Niikta Vallejo at the [facility] elephone Encounter - Maggie Montoya LPN - [...] as she forgot to ask about somet campbell at her appointment. Patient is wanting to see about getting a referral to an finishing and shipping supervisor as she has multiple intolerances to foods [...] | | [facility] [address] [facility] | | | | | | [place] [address] | | | | | | [phone] | | | | | | | | +--------+---------+ + + + documented as of this encounter Visit Diagnoses Not on filedocumented in this encounter"
--- OUTSIDE RECORDS SUMMARY | ~2020-02-29 | XMS | Encounter Summary ---
Demographics + + + | Address | [address] | | | [place] [address] | + + + | Home Phone [...] Providers + +------+ + | Care Receiving Checker Name | Role | Phone | + +------+ + | Pedrito Gutierrez MD | PCP | | + +------+ + Encounter Details +--------+ + + + + | Date | Type | Department | Care Team | Description | +--------+ + + + + | 04/17/ | Telephone | [facility] Division of | Carlos Arreola, | | | 2005 | | Gastroenterology/Hep | [address] | | | | | atology [address] | | | | | [address] | [place] [address] | | | | | Mailcode: [id number] | [phone] | | | | | Physician's Sharmila | | | | | | [address] | | | | | | [place], [place] | | | | | | [address] | | | | | | [phone] | | | +--------+ + + + [...] this encounter Miscellaneous Notes Telephone Encounter - Carlos Arreola - 04/23/2006 10:18 AM PSTI hav corinne other suggestion s currently, patient has been referred to pain clinic. She should seek pain mgmt from PCP i n the interim as I have discussed with her multiple times by phone and in clinic that this i s a difficult situation but that currently, pain treatment is our only option. She lizbeth griffin stopped her aspirin by now according to prior recommendations, and she has been referred for capsule endoscopy. Her recent endoscopy did not reveal any ulcer or histologic changes in the small bowel, eit her. SOURCE OF SPECIMEN:A Jejunum biopsy SOURCE OF SPECIMEN:B Sigmoid colon polyp biopsy SOURCE OF SPECIMEN:C Rectal polyp x 2 Final Pathologic Diagnosis: A: Small bowel, jejunum, mucosal biopsy: - Small bowel mucosa with no diagnostic abnormality B: Colon, sigmoid, polypectomy: - Hyperplastic polyp C: Rectum, polypectomy x 2: - Colorectal mucosa with xanthomatous changes of lamina propria - Negative for dysplasia 10:1 8 AM PSTTelephone Encounter - Cole Kinney - 04/17/2006 5:10 PM PSTI CALLED PT BACK, PT C/ O ABD STABBING PAIN TO WHOLE ABD AREA 03/24. EAT YOGURT, 2-3 MIN AFTER SHE FELT PAIN IN ABD SHE HAD TO TAKE 2 OXYCODONE TO CALM THE PAIN. PT IS AFRAID TO EAT ANYTHING, NOT SURE WHAT ELSE TO DO. CALLED HER PCP AND HE OKAY'D FOR HER TO TAKE THE EXTRA 2 PAIN PILLS AND ADVISED HER TO GO TO ED IF NECESSARY. WITH THE PAIN, SHE GETS N/V, PAIN GOES TO BACK, GIVES HER DR Roslyn PRESLEY. NO FEVERS. STATES SHE HAS HAD A GASTRIC BYPASS WITH DR. LAY RUANO AND DOES NO T WANT TO REVERSE THAT. WANTS A CALL BACK. elephone Encounter - Nirmal Cole - 04/17/2006 5:00 PM PSTFrom: Cole Amado ez Sent: Apr 17, 2006 4:54 PM To: Debbi Artis MD. Subject: [facility] [phone] 4:24 pm 04/17/06. PT CALLED STATING SHE IS HAVING ABD PAIN AND EVEN W HEN SHE EATS YOGURT. SEEMS LIKE ANYTHING SHE EATS CAUSES HER PAIN. WANTS TO KNOW IF SHE COUL D DO SOMETHING OTHER THAN TAKING PAIN PILLS ALL THE TIME. WANTS A CALL BACK. documented in this encounte r Plan of Treatment Not on filedocumented as of this encounter Visit Diagnoses Not on filedocumented in this encounter"
--- OUTSIDE RECORDS SUMMARY | ~2020-02-29 | XMS | Encounter Summary ---
Demographics + + + | Address | [address] | | | [place] [address] | + + + | Home Phone [...] Providers + +------+ + | Care Supervisor Hide House Name | Role | Phone | + +------+ + | Sulaiman Carrera MD | PCP | | + +------+ + Encounter Details +--------+ + + + + | Date | Type | Department | Care Team | Description | +--------+ + + + + | 02/08/ | Telephone | [facility] | Chris Padgett, | | | 2008 | | [place] [address] | [address] [facility] | | | | | Bethanie Mailcode: CH[address]S | [address] | | | | [facility] | [place], [place] | | | | | and Healing, | [address] | | | | | [place] [address], [address] | [phone] | | | | | Floor [place], [place] | | | | | | [address] | | | | | | [phone] | | | +--------+ + + + [...]
--- OUTSIDE RECORDS SUMMARY | ~2020-02-29 | XMS | Encounter Summary ---
Demographics + + + | Address | [address] | | | [place] [address] | + + + | Home Phone [...] Team Providers + +------+ + | Care Solution Sales Senior Executive Name | Role | Phone | [...] [id number] | | | | | | [place], [place] | | | | | | [address] | | | | | | [phone] | | | +--------+ + + + [...]
--- OUTSIDE RECORDS SUMMARY | ~2020-02-29 | XMS | Encounter Summary ---
Demographics + + + | Address | [address] | | | [place] [address] | + + + | Home Phone [...] Team Providers + +------+ + | Care Noteman Name | Role | Phone | + +------+ + | Petrona Thapa | PCP | | | MD | | | + +------+ + Reason for Visit + +--------+ + | Reason | Onset | Comments | | | Date | | + +--------+ + | Medication Refill | 02/24/ | | | | 2017 | | + +--------+ + Encounter Details +--------+--------+ + + + | Date | Type | Department | Care Team | Description | +--------+--------+ + + + | 02/24/ | Refill | [facility] | Alanis, | Medication Refill | | 2017 | | [facility] [address] | MD Petrona | | | | | [place], | [address] [place] | | | | | [place] [address] | [place] [address] | | | | | [phone] | [phone] | | | | | | | [...] | | | | | [place] [address] | | | | | | [phone] | | | | | | | | +--------+---------+ + + + documented as of this encounter Visit Diagnoses Not on filedocumented in this encounter"
--- OUTSIDE RECORDS SUMMARY | ~2020-02-29 | XMS | Encounter Summary ---
Demographics + + + | Address | [address] | | | [place] [address] | + + + | Home Phone [...] Providers + +------+ + | Care Plant And Equipment Worker Name | Role | Phone | + +------+ + | Petrona Thapa | PCP | | | MD | | | + +------+ + Encounter Details +--------+ + + + + | Date | Type | Department | Care Team | Description | +--------+ + + + + | 02/22/ | Orders Only | [facility] | [place] | Right shoulder pain, | | 2017 | | ORTHOPEDIC SURGERY | MD [address] | unspecified | | | | [address] | [address] | chronicity (Primary | | | | [place] | [place] [address] | Dx) | | | | [address] | [phone] | | | | | [phone] | | | +--------+ + + + [...] | | | | | [place] [address] | | | | | | [phone] | | | | | | | [...] pain, unspecified chronicity - Primary | + + documented in this encounter"
--- OUTSIDE RECORDS SUMMARY | ~2020-02-29 | XMS | Encounter Summary ---
Demographics + + + | Address | [address] | | | [place] [address] | + + + | Home Phone [...] Providers + +------+ + | Care Die Barber Name | Role | Phone | + [...] Refill Request | | 2008 | | [place] [address] | [address] | (Sucralfate) | | | | Beth[place] Mailcode: CH4S | [facility] | | | | | [facility] | [place], [place] | | | | | and [place], | [address] | | | | | [facility] | [phone] | | | | | Floor [place], [place] | | | | | | [address] | | | | | | [phone] | | | +--------+--------+ + + + [...]
--- OUTSIDE RECORDS SUMMARY | ~2020-02-29 | XMS | Encounter Summary ---
Demographics + + + | Address | [address] | | | [place] [address] | + + + | Home Phone [...] | + + +---------+ + | Marco nAtonio Wells | ECON | Unknown | | + + +---------+ + Care Team Providers + +------+ + | Care Community Ambassador Name | Role | Phone | + +------+ + | Petrona Thapa | PCP | | | MD | | | + +------+ + Reason for Visit + +--------+ + | Reason | Onset | Comments | | | Date | | + +--------+ + | Medication Refill | 09/06/ | | | | 2020 | | + +--------+ + Encounter Details +--------+--------+ + + + | Date | Type | Department | Care Team | Description | +--------+--------+ + + + | 09/06/ | Refill | [facility] | Alanis, | Medication Refill | | 2019 | | MEDICINE [address] | MD Petrona | | | | | [place], | [address] [place] | | | | | [place] [address] | [place] [address] | | | | | [phone] | [phone] | | | | | | | [...] | | | | | [place] [address] | | | | | | [phone] | | | | | | | | +--------+---------+ + + + documented as of this encounter Visit Diagnoses Not on filedocumented in this encounter"
--- OUTSIDE RECORDS SUMMARY | ~2020-02-29 | XMS | Encounter Summary ---
Demographics + + + | Address | [address] | | | [place] [address] | + + + | Home Phone [...] Team Providers + +------+ + | Care Pier Runner Name | Role | Phone | + +------+ + | Sulaiman Carrera MD | PCP | | + +------+ + Encounter Details +--------+ + + + + | Date | Type | Department | Care Team | Description | +--------+ + + + + | 06/12/ | Telephone | [facility] | Chris Padgett, | | | 2008 | | [place] [address] | [address] [facility] | | | | | [place] Mailcode: CH4S | [address] | | | | | [facility] | [place], [place] | | | | | and Healing, | [address] | | | | | [facility] 1, 6th | [phone] | | | | | Floor [place], [place] | | | | | | [address] | | | | | | [phone] | | | +--------+ + + + [...]
--- OUTSIDE RECORDS SUMMARY | ~2020-02-29 | XMS | Encounter Summary ---
Demographics + + + | Address | [address] | | | [place] [address] | + + + | Home Phone [...] Providers + +------+ + | Care Senior Clinical Consultant Name | Role | Phone | [...] + + | 03/02/ | Telephone | [facility] | Alanis, | Results, Imaging | | 2017 | | [facility] [address] | MD Petrona | | | | | [place], | [address] [place] | | | | | [place] [address] | [place] [address] | | | | | [phone] | [phone] | | | | | | | [...] - 03/02/2018 4:20 PM PDTPatient notified of martiri jen results with comments elephone Encounter - Maggie Montoya LPN - 03/02/2018 4:20 PM PDT----- Message from Morelia Thapa MD sent at 03/02/2018 15:11 PDT ----- X-ray shows only minimal degenerative changes. elephone Encounter - Bob Melgar - 03/02/2018 12:41 PM P DTPatient called states she was just seen she would like to know how long do lab results amaris e to come in please call [phone].Electronically signed by Bob Tinoco at 02/13 12:42 [...] | | | | | [place] [address] | | | | | | [phone] | | | | | | | | +--------+---------+ + + + documented as of this encounter Visit Diagnoses Not on filedocumented in this encounter"
--- OUTSIDE RECORDS SUMMARY | ~2020-02-29 | XMS | Encounter Summary ---
Demographics + + + | Address | [address] | | | [place] [address] | + + + | Home Phone [...] Team Providers + +------+ + | Care Scrum Product Owner Name | Role | Phone | + [...] | Pain | Diagnoses | Lamine, | aPco, | | | | Management | Chronic | Taqueria Strong, WORKFORCE ADVISOR | Rosi Armijo, ANP | | | | | neck pain | [address] | [address] | | | | | Low back | [place] | [place] | | | | | pain | [place] | [place], [place] | | | | | | [address] | [address] | | | | | | Phone: | | | | | | | [phone] | | | | | | | Fax: | | | | | | | [phone] | | +--------+--------+ + + + + Encounter Details +--------+---------+ + + + | Date | Type | Department | Care Team | Description | +--------+---------+ + + + | 08/09/ | Office | [facility] Comprehensive | Rosi Antonio, | Fibromyalgia | | 2013 | Visit | Pain Center at | ANP | syndrome 729.1 | | | | [facility] | | (Primary Dx); Major | | | | [address] | | depressive disorder, | | | | [facility] | | recurrent episode, | | | | and Healing, | | moderate (HCC); | | | | Building | | Adjustment disorder | | | | Floor [place], [place] | | with anxiety; LBP | | | | [address] | | (low back pain); | | | | [phone] | | Osteopenia; Chronic | | | | | | Bilateral Shoulder | | | [...] Instructions Patient Instructions Rosi Antonio, ANP - 08/09/2013 12:30 PM PSTPlan: Today [...] available without a prescription. ( References: Lauren TRAMMELL. et al. Diabetes Care. 28(1):89-94, 2005 Jun; Anca M, [employer] [employer]. [address] 1:25-30; discussion 45-6, [...] in two months as needed. [facility] documented in this encounter Progress Notes Rosi Antonio ANP - 08/09/2013 12:03 PM PSTFormatting of this note might be different fro m the original. [facility] Return Visit 08/09/2013 Belinda Meehan; [...] mg a day. Belinda does fall frequently, gray rodriguez feels she has poor balance, she is using a cane on a regular basis for steadiness. She had one fall forward onto her knees and has had mid-back thoracic level pain since this fall. S he did not seek medical care after this fall. She is adamant about never going to her local hospital in [place] for any medical evaluations. Belinda is very [...] 06/21/2008 Overview Note: Surgery 05/15/08 Dr Ricky KHANNA karlos to get operative reports Osteopenia 08/24/2007 LBP (Low Back Pain) 03/31/2007 Encounter for Long-Term (Current) Use of Opioids 01/11/2007 Hypothyroidism 11/11/2006 Major Depressive Disorder, Recurrent Episode, Moderate 07/31/2006 Adjustment Disorder with Anxiety 07/31/2006 Iron Deficiency 03/09/2006 Metabolic syndrome X 250.80 Essential hypertension 401.9 Asthma 493.9 Impaired glucose tolerance 790.2 Fibromyalgia syndrome 729.1 Overview Note: <PROVIDER>DAVIDE Meehan completed the Brief Pain Inventory and a pain drawing which I reviewed. [facility] Brief Pain Inventory: (ten= worst possible pain or complete interference) Right Now: 9 (08/09/13 1018) Least in 24 hours: 9 (08/09/13 1018) Worst in 24 hours: 9 (08/09/13 1018) Average: 9 (08/09/138) % Relief (med/treat): 0 (08/09/13 1018) General Activity: 10 (08/09/13 1018) Mood: 9 (08/09/13 1018) Walking Ability: 10 (08/09/13 1018) Normal Work: 10 (08/09/13 1018) Relations with Others: 9 (08/09/13 1018) Enjoyment of Life: 10 (08/09/13 1018) Sexual Activity: 10 (08/09/13 1018) Sleep: 10 (08/09/13 1018) The pain is located in several regions, she notes pain in her right adventism, bilateral shoul crista muscles, left elbow, entire [...] knee Lumbar fusion 05/2008, ' & ' [id number] with bone spur removals Appendectomy Cholecystectomy section [...] Hives Mainly in the legs Clindamycin Codeine Vchnfxq-Pqbprhyrwz-Iwo-Caff Balance problems Fioricet W/Codeine (Lliwtzbgmt-Whpczumtbp-Bop-Cod) Keflex (Cephalexin) Morphine IM ( only in [facility]) made gut pain worse 08/27/06: Trial of oral MSIR caused leg swelling Penicillins Sulfa (Sulfonamide Antibiotics) Tramadol Ms. Meehan reports no side effects. The Review of Systems provided by Ms. Meehan and documented by the [facility] was reviewed. This data was entered by [...] al. Diabetes Care. 28(1):89-94, 2004; Anca M, [facility] [employer] [facility]. [address] 1:25-30; discussion 45-6, [...] of which more than 50% was spent vbxeb-yg-hmqc in r eviewing pain questionnaire, medical record, consultation, discussion, addressing questions and counselling/education. [facility] Sarah Beth Guzman - 08/09 10:19 AM PSTCMA History: 1. [...] appeti te documented in this encounte r Miscellaneous Notes Scan - Other, Faculty - 08/18/2013 2:04 PM PSTElectronically signed by Faculty Other at 2:04 PM PSTdocumented in this encounter Plan of [...] | | + +---------+ + + | [facility] DEPARTMENT OF | | | | [...]
--- OUTSIDE RECORDS SUMMARY | ~2020-02-29 | XMS | Encounter Summary ---
Demographics + + + | Address | [address] | | | [place] [address] | + + + | Home Phone [...] Providers + +------+ + | Care Clinical Support Tech Name | Role | Phone | + +------+ + | Maria Esther Cintron MD | PCP | | + +------+ + Encounter Details +--------+ + + + + | Date | Type | Department | Care Team | Description | +--------+ + + + + | 08/26/ | Telephone | [facility] | Chris Padgett, | | | 2010 | | [place] [address] | [address] [facility] | | | | | Bethanie Mailcode: CH4S | [address] | | | | | Center for [facility] | [place], [place] | | | | | and Healing, | [address] | | | | | Building , 6th | [phone] | | | | | Floor [place], [place] | | | | | | [address] | | | | | | [phone] | | | +--------+ + + + [...] Primarily, she should be seen by a drainman. She told me, however, that drainman visits a re not covered by her insurance and she cannot afford the out of pocket fee. Transferred wendi del castillo to the chief crew scheduler for appointment with Dr. Padgett to assess [...] Pharmacy: Pharmacy Preferences[facility] [facility] [address] [place], [place] [id number] documented in this encounter Plan of Treatment Not on filedocumented as of this encounter Visit Diagnoses Not on filedocumented in this encounter
--- OUTSIDE RECORDS SUMMARY | ~2020-02-29 | XMS | Encounter Summary ---
Demographics + + + | Address | [address] | | | [place] [address] | + + + | Home Phone [...] Team Providers + +------+ + | Care Burnishing Machine Operator Name | Role | Phone [...] Rd | | | | | | [place], [place] | | | | | | [address] | | | +--------+ + + + [...] as of this encounter Progress Notes Interface, [employer] Crew Boss In - 03/12/2007 2:28 AM PDT [id number] GEOVANNI SKELTON Molly [id number] Clinic Date: 02/23/2007 Clinic: Endocrinology Subjective: Belinda [...] performed next Thursday, March 01, 2007, in [place]. The right knee will be replaced in [...] patch 25 mcg for 72 hours. 2. [place]/acetaminophen 10 mg/325 mg, 1 every 6 hours [...] in about 3 months. Beto Meeks M.D. / [id number] / [id number] / [id number] / [id number] cc: Pedrito Gutierrez M.D. [address] [place] [address] Chris Padgett M.D. Department of Surgery, [facility] Electronically signed by Beto Meeks 03-11-2007 04:41:13 PM nterface, [employer] Crew Boss In - 03/12/2007 2:28 AM PDT [id number] GEOVANNI [place] [id number] Clinic Date: 02/23/2007 Clinic: Endocrinology Belinda Meehan [...] her primary care provider, Dr. Gutierrez in [place]. She had a followup eye exam today, [...] replacement next Thursday (in 6 days) in [place], [place]. The right knee replacement tentatively will [...] or sooner as needed. Beto Meeks M.D. PD / HS [id number] / [id number] / [id number] / [id number] cc: Pedrito Gutierrez M.D. [address] [place] [address] Joanna Arshad M.D. Electronically signed by Beto Meeks 03-11-2007 04:41:08 PM documented in this encounter Plan of Treatment Not on filedocumented as of this encounter Visit Diagnoses Not on filedocumented in this encounter"
--- OUTSIDE RECORDS SUMMARY | ~2020-02-29 | XMS | Encounter Summary ---
Demographics + + + | Address | [address] | | | [place] [address] | + + + | Home Phone [...] Providers + +------+ + | Care Crop Quantitative Geneticist Name | Role | Phone | + [...] | | | | | | | [place], [place] | | | | | | | [address] | | | | | | | Phone: | | | | | | | [phone] | | | | | | | Fax: | | | | | | | [phone] | +--------+--------+ + + + + Encounter Details +--------+---------+ + + + | Date | Type | Department | Care Team | Description | +--------+---------+ + + + | 08/23/ | Office | Kraig Turner | Beto Parish MD | Osteopenia (Primary | | 2008 | Visit | [facility] | [address] | Dx); Hypothyroidism; | | | | [facility] | [place], [place] | Metabolic syndrome | | | | [address] | [address] | X 250.80; Essential | | | | [address] | [phone] | hypertension 401.9; | | | | [facility] | | Fibromyalgia | | | | Physician's | | syndrome 729.1 | | | | Pavilion [place], | | | | | | [place] [address] | | | | | | [phone] | | | +--------+---------+ + + + [...] this encounter Progress Notes Beto Parish - 08/24/2007 1:39 PM PDT Addended by: MIYA PARISH MD on: 08/24/2007 1:39:05 P M Modules accepted: Orders eto Parish - 08/24/2007 1 :32 PM PDT Subjective Belinda J Shefali is a 47 y.o. female who is [...] knee replacement do ne on 08/30/[address] [place] [address] Vasquez. Patient Active Problem List [...] 51 TSH 0.28-5.00 uIU/ml 1.70 Assessment Belinda Meehan is a 47 y.o. female who has [...]
--- OUTSIDE RECORDS SUMMARY | ~2020-02-29 | XMS | Encounter Summary ---
Demographics + + + | Address | [address] | | | [place] [address] | + + + | Home Phone [...] Team Providers + +------+ + | Care Email Manager Name | Role | Phone | [...]
--- OUTSIDE RECORDS SUMMARY | ~2020-02-29 | XMS | Encounter Summary ---
Demographics + + + | Address | [address] | | | [place] [address] | + + + | Home Phone [...] Providers + +------+ + | Care Restaurant Shift Leader Name | Role | Phone | + +------+ + | Sulaiman Carrera MD | PCP | | + +------+ + Encounter Details +--------+ + + + + | Date | Type | Department | Care Team | Description | +--------+ + + + + | 01/29/ | Ancillary | Registration [id number] | Beto Meeks MD | | | 2005 | Registratio | [facility] | [address] | | | | n | [address] Mailcode: RPB07 | [place], [place] | | | | | [place], [place] | [address] | | | | | [address] | [phone] | | | | | [phone] | | | +--------+ + + + [...] | | | | | vitamin D2, 25-Hydroxy. | | | | | | Test performed by [facility] | | | | | | Laboratories. | | | | + + + + + + + + | Specimen | + + | | + + + + + + + | Performing | Address | City/State/Zipcode | Phone Number | | Organization | | | | + + + + + | [facility] | [address] | [place], [place] | | | [facility] | | [address] | | + + + + + [...] | [facility] | | | | | [facility] | | | | | | Laboratories. | | | | + + + + + + + + | Specimen | + + | | + + + + + + + | Performing | Address | City/State/Zipcode | Phone Number | | Organization | | | | + + + + + | [facility] | [address] | [place] [address] | | | LABORATORY | | | [...] DEPARTMENT OF | [address] | [place] [address] | | | PATHOLOGY | [address] | | | + + + + + | [facility] DEPARTMENT OF | [address] | [place] [address] | | | PATHOLOGY | [address] [...] | + + + + + | [facility] DEPARTMENT OF | [address] [facility] [facility] [address] | [place] [address] | | | PATHOLOGY | [address] | | | + + + + + | [place] DEPARTMENT OF | [address] | [place] [address] | | | PATHOLOGY | [address] [...] Performed At | + + + | [id number] Estimated GFR > 60 mL/min/1.73 sq m if non- | [facility] | | [id number] Estimated GFR > 60 mL/min/1.73 sq m [...] | + + + + + | [facility] | [address] | [place] [address] | | | PATHOLOGY | [address] | | | + + + + + | [facility] DEPARTMENT OF | [address] | [place] [address] | | | PATHOLOGY | [address] | | | + + + + + documented in this encounter Visit Diagnoses Not on filedocumented in this encounter"
--- OUTSIDE RECORDS SUMMARY | ~2020-02-29 | XMS | Encounter Summary ---
Demographics + + + | Address | [address] | | | [place] [address] | + + + | Home Phone [...] Providers + +------+ + | Care Chrome Cleaner Name | Role | Phone | [...] + + | 11/15/ | Telephone | [facility] | Alanis, | Foot Injury | | 2019 | | MEDICINE [address] | MD [place] | | | | | [place], | [address] [place] [address] | | | | | [place] [address] | [place] [address] | | | | | [phone] | [phone] | | | | | | | [...] seek medical attention at the ED in [facility]. Understands and a ccepts elephone [facility] - 11/16/2019 8:21 AM [...] | | | | | [place] [address] | | | | | | [phone] | | | | | | | | +--------+---------+ + + + documented as of this encounter Visit Diagnoses Not on filedocumented in this encounter"
--- OUTSIDE RECORDS SUMMARY | ~2020-02-29 | XMS | Encounter Summary ---
Demographics + + + | Address | [address] | | | [place] [address] | + + + | Home Phone [...] + +------+ + | Care Director Of Golf Name | Role | Phone | + [...] Specialty | Neurology | Diagnoses | | Raghunath, | | | Services | | Poor memory | Rene | MD Alexandra | | | Required | | | i, | [address] | | | | | | [place] | [address] | | | | | [address] , [address] | | | | | | [address] | [place] | | | | | | [place], | [address] | | | | | | [place] | Phone: | | | | | | [address] | [phone] | | | | | | Phone: | Fax: | | | | | | [phone] | [phone] | | | | | | Fax: | | | | | | | [phone] | | +--------+ + + + + [...] MEDICINE [address] | MD [place] | Dx); [address] | | | [address] [place], | [address] [place] | deficiency; Fatty | | | | [place] [address] | [place] [address] | liver | | | | [phone] | [phone] | | | | | | | [...] nl. No depression or suicidal thinki ng. [place] Cognitive Assessment (MoCA) Office Visit from 04/18/2019 [...] 1 Total Score (Calculated) 16 Administered the [place] Cognitive Assessment (MoCA) a cognitive screening measure [...] Common migraine COPD (chronic obstructive pulmonary disease) ([facility]) Depression Diarrhea Dumping syndrome Fall at home Fatigue fracture of vertebra Fibromyalgia Full dentures GERD (gastroesophageal reflux disease) Glaucoma Hyperparathyroidism ([facility]) Hypothyroidism IBS (irritable bowel syndrome) Idiopathic scoliosis Leg edema Low back pain Lumbar postlaminectomy syndrome Lumbar radiculopathy primarily right 01/04/2015 Meniere syndrome Migraine with aura Migraines Muscle cramping Muscle spasm Myalgia Nausea Nonalcoholic hepatosteatosis Obesity Opioid dependence ([facility]) Orthostatic hypotension OLIVER (obstructive sleep apnea) Osteoarthritis, generalized Osteopenia Osteoporosis Palpitations Peripheral neuropathy Rheumatoid arthritis ([facility]) Right arm pain 01/04/2015 RLS (restless legs syndrome) S/P lumbar fusion 01/04/2015 Scoliosis Sleep apnea Spondylosis with myelopathy, lumbar region Stroke ([facility] [...] Procedure: COLONOSCOPY; Surgeon: Luther Brito MD; Location: [facility] MEDICAL PROCEDURE UNIT DILATION AND CURETTAGE OF UTERUS ELBOW SURGERY FINGER TRIGGER RELEASE 2002 FINGER TRIGGER RELEASE 2010 GASTRIC BYPASS SURGERY 2004 HYSTERECTOMY 05/14/1980 JOINT REPLACEMENT Bilateral 2006 2007 KNEE ARTHROSCOPY 2005 LAPAROSCOPY 01/27/2015 LAPAROTOMY 2008 ROTATOR CUFF REPAIR 2005 SPINE SURGERY TONSILLECTOMY 1964 UPPER GASTROINTESTINAL ENDOSCOPY N/A 12/18/2017 Procedure: EGD; Surgeon: Luther Brito MD; Location: [facility] MEDICAL PROCEDURE UNIT CURRENT MEDICATIONS [...] Cla Maddie Thapa MD 1,000 mcg at 04/18/19 0955 ALLERGIES Allergies Allergen Reactions Ensure Diarrhea Food Diarrhea Lactose Fduntbbtwl-Wkk-Jirs-Codeine Other (See Comments) Balance problems Codeine Sulfate Nausea Only Food Allergy Formula Diarrhea Ensure Levofloxacin Hives, Itching and Rash Butalbital Ropinirole Amitriptyline Hcl Other (See Comments) Confused and questionable for seizures Nbdbbvzclg-Ccdj-Zuxcxeov Rash duplicate Nhnngjzaxx-Dndq-Kqqtqcut Hives and Rash Cephalexin Hives Ciprofloxacin Hives [...] 1. Parts of this documentwere created using [employer] speech recognition software. As a resu lt, [...] | | | | [address] [place] | | | | | | [place] [address] | | | | | | [phone] | | | | | | | | +--------+---------+ + + + + + +--------+ + + | Name | Type | Priori | Associated Diagnoses | Order Schedule | | | | ty | | | + + +--------+ + + | [facility] Neurology | Outpatient | Routin | Poor [...] 9 | 9 - 23 mg/dL | [facility] | | | | | | [facility] | | | | | | [facility]ICAL | | | | | | C[facility] - | | | | | | LABORATORY | | + + + + + + | Creatinine | 0.80 | 0.55 - 1.02 | [facility] | | | | | mg/dL | [facility] | | | | | | MEDICAL | | | | | | CENTER - | | | | | | LABORATORY | | + + + + + + | eGFR, | >60Comment: GLOMERULAR | >=60 | [facility] | | | non- | FILTRATION | mL/min/1.73m2 | [facility] | | | Congolese | RATE,ESTIMATED | | MEDICAL | | | | mL/min/1.83r3Hhlh than | | CENTER - | | [...] ST. | [address] | [place], [place] | [phone] | | [facility] | | [address] | | | - LABORATORY | | | | + + + + + Folate (04/18/2019 11:29 AM PST) + +-------+ + + + | Component | Value | Ref Range | Performed | Pathologist | | | | | At | Signature | + +-------+ + + + | FOLATE | 40.9 | >5.4 ng/mL | [facility] | | | | | [...] [address] | [place] | [phone] | | [facility] | | [address] | | | - LABORATORY | | | | + + + + + Vitamin B-12 (04/18/2019 11:29 AM PST) + + + + + + | Component | Value | Ref Range | Performed | Pathologist | | | | | At | Signature | + + + + + + | VITAMIN | >21351 (H)Comment: | 156 - 672 pg/mL | [facility] | | | B-12 | DEFICIENT: | [...] + | [facility] | [address] | [place], [place] | [phone] | | [facility] | | [address] | | | - LABORATORY | | [...] | | | | First dose on [facility] 10/15/17 at 1215 | | | [...]
--- OUTSIDE RECORDS SUMMARY | ~2020-02-29 | XMS | Encounter Summary ---
Demographics + + + | Address | [address] | | | [place] [address] | + + + | Home Phone [...] Team Providers + +------+ + | Care Indoor Plant Technician Name | Role | Phone | [...] | | [facility] [address] | [place] [address] | | | | | [address] | [facility] [address] | | | | | for Health and | [place], [place] | | | | | [place] [address] | [address] | | | | | [place], [place] | [phone] | | | | | [address] | | | | | | [phone] | | | +--------+ + + + [...]
--- OUTSIDE RECORDS SUMMARY | ~2020-02-29 | XMS | Encounter Summary ---
Demographics + + + | Address | [address] | | | [place] [address] | + + + | Home Phone [...] Team Providers + +------+ + | Care Researcher Name | Role | Phone | + +------+ + | Petrona Thapa | PCP | | | MD | | | + +------+ + Reason for Visit + +--------+ + | Reason | Onset | Comments | | | Date | | + +--------+ + | Safety issue | 06/09/ | | | | 2018 | | + +--------+ + Encounter Details +--------+ + + + + | Date | Type | Department | Care Team | Description | +--------+ + + + + | 06/09/ | Telephone | [facility] | Alanis, | Safety issue | | 2018 | | MEDICINE [address] | MD [place] | | | | | [place], | [address] | | | | | [place] [address] | [place] [address] | | | | | [phone] | [phone] | | | | | | | [...] this encounter Miscellaneous Notes Telephone Encounter - Wanda Vasquez MSW - 06/16/2019 3:45 PM Trent WOODWARD connected with Ligia bowser. She lives with her son and his girlfriend and her son have been staying at her home f or the past week. Sree (son) took his g/f and her son home today. Belinda "hopes things will calm down now they're gone". Patient requested a call in "a cou le sy" for a wellness check. Belinda has a wrapper caser, Tania, through [facility]. Her housing is stable but she "wants to move where no one can live above her". Her hope is to have a house with a xhabwa-pt-gck cottage . This SW offered to coordinate with her wrapper caser and assist with housing but she declin ed at this time. Belinda receives food stamps and has enough food. Belinda has a state caregiver to help with cleaning and transportation to appointments. Belinda no longer drives. Belinda declined coun [employer] resources. el ephone Encounter - Shalonda Mcdermott - 06/16/2019 12:04 PM PSTPatient returned your calls. She stated she is on her way home now and will be there in about 40 minutes if you still want to speak to her. elephone Encounter - Wanda Burns MSW - 06/16/2019 11:21 AM PSTKellie WOODWARD left a message for Belinda requesting a retu rn call. elephone En counter - Wanda Vasquez MSW - 06/14/2019 2:02 PM PSTKellie WOODWARD contacted Belinda for safety/w ellness check. Belinda's primary concern was her medication refill. This SW confirmed with [facility] that they would have her loperamide prescription filled today and communicated this information to Belinda. Belinda stated that she was unable to discuss the safety issue at th is time and requested a call later this week or next. This SW to try again. elephone Encounter - Lisa Hurley RN - 06/10/2019 12:57 PM PSTMeloren-it sounds like maybe Belinda is unable to talk to her son about her concerns. Is this something you could help with? elephone Encounter - Teresa Mitchell, Chain Repairer - 06/09/2019 5:04 PM PSTPhone call from patient regarding her son and his girlfr iend. States that his son brings his girlfriend over to the house with her two year old son . They go into the bedroom and leave her to watch the child. She states that the child is too active and that he kicks her and she is afraid that he is going to break her legs from t his since she has osteoporosis. She is a month post right shoulder arthroscopy and says moris t she is not able to watch this little active boy. Her son said that he was going to bring his girlfriend over this weekend again. She stated that her apartment is too small and she has a lot of glass items in her house and is fearful that the little boy will break them. H er son came in while she was on the phone and she changed the subject and said she would dis cuss it further when she comes in on 06/16/19 for her B12 injection. Patient advised that Buzz Booth is out of the office until 06/13/19. Is there anything that [facility] help with? 5: 17 PM PSTdocumented in this encounter Plan of Treatment +--------+---------+ + + + | Date | Type | Specialty | Care Team | Description | +--------+---------+ + + + | 05/17/ | Office | Internal Medicine | EmmyAnjum, | | | 2019 | Visit | | MD [place] | | | | | | [facility] [address] | | | | | | [place] [address] | | | | | | [phone] | | | | | | | | +--------+---------+ + + + documented as of this encounter Visit Diagnoses Not on filedocumented in this encounter
--- OUTSIDE RECORDS SUMMARY | ~2020-02-29 | XMS | Encounter Summary ---
Demographics + + + | Address | [address] | | | [place] [address] | + + + | Home Phone [...] Team Providers + +------+ + | Care Weaving Teacher Name | Role | Phone | [...] Rd | | | | | | [place], [place] | | | | | | [address] | | | +--------+ + + + [...] as of this encounter Procedure Andrea Gibbons, Vilma - 11/03/2013 10:22 AM PDTAssociated Order(s): BONE DENSITOMETRYElectronicall y signed by Vilma Gibbons at 11/03/2013 10:22 AM PDTdocumented in this [...]
--- OUTSIDE RECORDS SUMMARY | ~2020-02-29 | XMS | Encounter Summary ---
Demographics + + + | Address | [address] | | | [place] [address] | + + + | Home Phone [...] Team Providers + +------+ + | Care Deputy Sheriff Name | Role | Phone [...] | [address] [place] | | | | | [place] | [address] | | | | | [address] | | | | | | [phone] | | | +--------+ + + + [...] | | | | | [place] [address] | | | | | | [phone] | | | | | | | | +--------+---------+ + + + documented as of this encounter Visit Diagnoses Not on filedocumented in this encounter"
--- OUTSIDE RECORDS SUMMARY | ~2020-02-29 | XMS | Encounter Summary ---
Demographics + + + | Address | [address] | | | [place] [address] | + + + | Home Phone [...] Team Providers + +------+ + | Care Lottery Manager Name | Role | Phone | [...] | | | | | [place], | | | | | | [place] [address] | | | | | | [phone] | | +--------+ + + + + [...]
--- OUTSIDE RECORDS SUMMARY | ~2020-02-29 | XMS | Encounter Summary ---
Demographics + + + | Address | [address] | | | [place] [address] | + + + | Home Phone [...] Providers + +------+ + | Care Christian Science Nurse Name | Role | Phone | + +------+ + | Pedrito Gutierrez MD | PCP | | + +------+ + Encounter Details +--------+---------+ + + + | Date | Type | Department | Care Team | Description | +--------+---------+ + + + | 07/30/ | Office | [facility] | Nathalia Arora | Cervical Spondylosis | | 2006 | Visit | [facility] | [address] | without Myelopathy | | | | [place] [address] | [place], | (Primary Dx); | | | | [facility] | [place] [address] | 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 Physical Therapy Medicare Progress Note Date: 07/30/2006 Belinda Meehan [id number]. 1960 Start of Care: 06/23/2006 Referring Provider: [...] 05/29/2006 Insurance: Medicare Number of used/authorized visits: 3 Medicare certification from: 07/16/2006 through Subjective: Patient reported upon rising this am lowback pain 03/24, and now 12/22. "I fee l like I've been hit by a truck." Objective: Patient returned for her 2nd f/u visit, she has been ill with pneumonia for at l east 1 week, is taking antibiotics, and also presented today with migraine symptoms. Genoveva jacobsen stated she was not overly sore post [...] her today. Patient has multiple appts. At [facility] today, including a f/u regarding her [...] this the remainder of the day whi le here and to always have gait devices [...]
--- OUTSIDE RECORDS SUMMARY | ~2020-02-29 | XMS | Encounter Summary ---
Demographics + + + | Address | [address] | | | [place] [address] | + + + | Home Phone [...] Providers + +------+ + | Care Machine Try Out Setter Name | Role | Phone | [...] + + | 01/11/ | Office | [facility] Comprehensive | Delfina Molina, | Left Knee Pain; DJD | | 2006 | Visit | Pain Center at | ANP | (Degenerative Joint | | | | [facility] | | Disease) of Knee; | | | | [address] | | Herniated Lumbar | | | | [place] for [facility] | | Intervertebral Disc | | | | and Healing, | | L4-5; Spondylosis | | | | | | with Myelopathy, | | | | Floor [place], [place] | | Lumbar Region; | | | | [address] | | Fibromyalgia | | | | [phone] | | syndrome 729.1; | | | [...] Belinda Meehan is a 46 y.o. 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 Belinda Meehan is here today for a [...] until surgery pending 02/13 12/19. DELFINA MOLINA [facility] Mail code CH [address] [facility] and [address] [address] ilyn Wyatt Malissa - 01/12/20 2:58 PM PDT ilyn Wyatt - 01/11/2007 2:43 PM PDTCMA History: PMH/PSH/SH/FH [...]
--- OUTSIDE RECORDS SUMMARY | ~2020-02-29 | XMS | Encounter Summary ---
Demographics + + + | Address | [address] | | | [place] [address] | + + + | Home Phone [...] + +------+ + | Care Video Game Producer Name | Role | Phone | [...] [address] | | | | | [place], [place] | [place], [place] | | | | | [address] | [address] | | | | | [phone] | [phone] | | | | | | | [...] HOSPITAL DEPARTMENT OF | [address] [facility] | [place] [address] | | | PATHOLOGY | [address] | | | + + + + + | [facility] DEPARTMENT OF | [address] [facility] | [place] [address] | | | PATHOLOGY | [address] [...] DEPARTMENT OF | [address] | [place] [address] | | | PATHOLOGY | [address] | | | + + + + + | [facility] DEPARTMENT OF | [address] | [place] [address] | | | PATHOLOGY | [address] | | | + + + + + PHOSPHORUS, PLASMA (12/07/2004 6:42 AM PDT) + +-------+ + + + | Component | Value | Ref Range | Performed | Pathologist | | | | | At | Signature | + +-------+ + + + | PHOSPHORUS, | 4.3 | 2.4 - 4.7 mg/dL | [facility] | | | PLASMA | | | [...] + | [facility] | [address] | [place] [address] | | | PATHOLOGY | [address] | | | + + + + + | [facility] | [address] | [place] [address] | | | PATHOLOGY | [address] [...] DEPARTMENT OF | [address] | [place] [address] | | | PATHOLOGY | [address] | | | + + + + + | [facility] | [address] | [place] [address] | | | PATHOLOGY | [address] | | | + + + + + documented in this encounter Visit Diagnoses Not on filedocumented in this encounter"
--- OUTSIDE RECORDS SUMMARY | ~2020-02-29 | XMS | Encounter Summary ---
Demographics + + + | Address | [address] | | | [place] [address] | + + + | Home Phone [...] Providers + +------+ + | Care Senior Pensions Administrator Name | Role | Phone | + +------+ + | Sulaiman Carrera MD | PCP | | + +------+ + Encounter Details +--------+ + + + + | Date | Type | Department | Care Team | Description | +--------+ + + + + | 07/30/ | Ancillary | Registration 3181 | Beto Meeks MD | | | 2006 | Registratio | [facility] | [address] | | | | n | Peterson Mailcode: [id number] | [place], [place] | | | | | [place], [place] | [address] | | | | | [address] | [phone] | | | | | [phone] | | | +--------+ + + + [...] + + + + + | [facility] | [address] | [place] [address] | | | LABORATORY | | | [...] at: | | | | | | [employer],[address] | | | | | | [facility] | | | | | | [address] | | | | | | [email or web address] | | | | + + + + + + + + | Specimen | + + | | + + + + + + + | Performing | Address | City/State/Zipcode | Phone Number | | Organization | | | | + + + + + | [facility] | [address] | [place], [place] | | | [facility] | | [address] | | + + + + + [...] Iron and TIBC, Serum Test performed by [facility] | | | [facility]. | | + + + + + + + + | Performing | Address | City/State/Zipcode | Phone Number | | Organization | | | | + + + + + | [facility] | [address] | [place] [address] | | | LABORATORY | | | [...] | + + + + + | [facility] | [address] | [place] [address] | | | LABORATORY | | | [...] | + + + + + | [facility] | [address] [facility] | [place] [address] | | | PATHOLOGY | [address] | | | + + + + + | [facility] | [address] [place] [address] | [place] [address] | | | PATHOLOGY | [address] [...] DEPARTMENT OF | [address] | [place] [address] | | | PATHOLOGY | [address] | | | + + + + + | [facility] DEPARTMENT OF | [address] [facility] | [place] [address] | | | PATHOLOGY | [address] [...] Performed At | + + + | [id number] Estimated GFR > 60 mL/min/1.73 sq m if non- | [facility] | | [id number] Estimated GFR > 60 mL/min/1.73 sq m [...] | + + + + + | [facility] | [address] | [place] [address] | | | PATHOLOGY | [address] | | | + + + + + | [facility] | [address] | [place] [address] | | | PATHOLOGY | [address] | | | + + + + + documented in this encounter Visit Diagnoses Not on filedocumented in this encounter"
--- OUTSIDE RECORDS SUMMARY | ~2020-02-29 | XMS | Encounter Summary ---
Demographics + + + | Address | [address] | | | [place] [address] | + + + | Home Phone [...] Team Providers + +------+ + | Care Lay Out Inspector Name | Role | Phone | [...] as of this encounter Procedure Notes Interface, Cutting Table Operator In - 06/05/2005 5:20 AM PST [id number] GEOVANNI VAZQUEZKatie Barnes Date: 12/06/2004 Attending Surgeon: Chris Padgett M.D. Fisher Eel(s): Preoperative Diagnosis(es): 1. Unwanted panniculectomy. 2. Unwanted [...] Sree Carrillo M.D. Chris Padgett M.D. / [id number] / [id number] / [id number] / Electronically signed by Chris Padgett 12-31-2004 [...] | Transcriptions | + + | Interface, Cutting Table Operator In - 06/05/2005 5:20 AM PST | | [id number] | | [id number] GEOVANNI Barnes | | | | Date: 12/06/2004 | | | | Attending Surgeon: Chris Padgett M.D. | | | | Fisher Eel(s): | | | | Preoperative Diagnosis(es): | [...] to approximate the skin | | folds. Freedom were used to close the overlying skin. [...] | | BW / HS | | [id number] / [id number] / [id number] / | | | | | | | | | | | | Electronically signed by Chris Padgett 12-31-2004 03:02:45 PM | + + documented in this encounter Visit Diagnoses Not on filedocumented in this encounter"
--- OUTSIDE RECORDS SUMMARY | ~2020-02-29 | XMS | Encounter Summary ---
Demographics + + + | Address | [address] | | | [place] [address] | + + + | Home Phone [...] Team Providers + +------+ + | Care Lining Vamper Name | Role | Phone | + +------+ + | Petrona Thapa | PCP | | | MD | | | + +------+ + Reason for Visit +--------+--------+ + | Reason | Onset | Comments | | | Date | | +--------+--------+ + | Other | 08/17/ | | | | 2019 | | +--------+--------+ + Encounter Details +--------+ + + + + | Date | Type | Department | Care Team | Description | +--------+ + + + + | 08/17/ | Telephone | [facility] | Alanis, | Other | | 2019 | | MEDICINE [address] | MD Petrona | | | | | [place], | [address] [facility] | | | | | [place] [address] | [place] [address] | | | | | [phone] | [phone] | | | | | | | [...] Telephone Encounter - Maggie Montoya LPN - 08/18/2019 3:51 PM PSTPatient was checking on t he incontinence supplies form. Patient will call the [facility] to see if they receivedElectron ically signed by Maggie Montoya LPN at 08/18/2019 3:53 PM PSTTelephone Encounter - Esperanza Boyce - 08/18/2019 3:31 PM PSTPatient called wanting to speak to the nurse regarding pain. Did not disclose further info. Please advise.Electronically signed by Susanna Boyce at 10/2019 3:33 PM PSTdocumented in this encounter Plan of [...] | | | | | [place] [address] | | | | | | [phone] | | | | | | | | +--------+---------+ + + + documented as of this encounter Visit Diagnoses Not on filedocumented in this encounter"
--- OUTSIDE RECORDS SUMMARY | ~2020-02-29 | XMS | Encounter Summary ---
Demographics + + + | Address | [address] | | | [place] [address] | + + + | Home Phone [...] Providers + +------+ + | Care Concrete Technician Name | Role | Phone | [...] [address] | | | | | [place], [place] | [place], [place] | | | | | [address] | [address] | | | | | [phone] | [phone] | | | | | | | [...]
--- OUTSIDE RECORDS SUMMARY | ~2020-02-29 | XMS | Encounter Summary ---
Demographics + + + | Address | [address] | | | [place] [address] | + + + | Home Phone [...] Team Providers + +------+ + | Care Appeals Board Referee Name | Role | Phone | + [...] 08/26/ | Office | [facility] | Lukasz Charles, | Major Depressive | | 2006 | Visit | [address] | PhD [address] | Disorder, Recurrent | | | | Center for Health | [place], [place] | Episode, Moderate | | | | and Healing, | [address] | (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 Diagnosis: Whitefield I: 1. (296.32) Major depressive disorder, recurrent, moderate. 2. (309.24) Adjustment disorder with anxiety. 3. (307.89) Chronic pain disorder associated with both psychological factors and a gene ral medical condition. Whitefield II: Deferred Whitefield III: abdominal pain, migraine headache, low back pain. Whitefield IV: low finances Whitefield V: GAF 50 Plan: Return in 2 weeks. Check pacing, relaxation, activity, distraction. Check managing Pain.. . book. Continue cognitive/behavioral therapy. Total time spent with patient was approximately 45 minutes. LUKASZ CHARLES PHD [facility] [address] [facility], [address] [place] [address] [facility] Plan of Treatment + + +--------+ + + | Name | Type | Priori | Associated Diagnoses | Order Schedule | | | | ty | | | + + +--------+ + + | ND PSYCHOTHERPY, | Procedures | Routin | Major Depressive | Ordered: 08/26/2006 | | OFFICE (79-55) | | e | Disorder, Recurrent | | | | | | Episode, Moderate | | | | | | ([facility]) Spondylosis | | | | | [...]
--- OUTSIDE RECORDS SUMMARY | ~2020-02-29 | XMS | Encounter Summary ---
Demographics + + + | Address | [address] | | | [place] [address] | + + + | Home Phone [...] Providers + +------+ + | Care Air Conditioning Installer Supervisor Name | Role | Phone | [...] | | | | | hemorrhoid | [place], [place] | [address] | | | | | Rectal pain | [address] | [facility] | | | | | Procedures | | Rd [place], | | | | | CONSULT TO | | [place] | | | | | [place] | | [address] | | | | | SURGERY | | Phone: | | | | | | | [phone] | | | | | | | Fax: | | | | | | | [phone] | +--------+--------+ + + + + Encounter Details +--------+---------+ + + + | Date | Type | Department | Care Team | Description | +--------+---------+ + + + | 10/03/ | Office | Digestive Health | Bandar Valenzuela, | Anal or Rectal Pain | | 2008 | Visit | Center at [facility] [address] | [address] | (Primary Dx) | | | | [address] [place] | [facility] [address] | | | | | for Health and | [place], [place] | | | | | [facility], [facility] [address] | [address] | | | | | [place], [place] | [phone] | | | | | [address] | | | | | | [phone] | | | +--------+---------+ + + + [...] stool. She had a normal colonoscopy at [facility] in 2005 PMH: Past Medical History Diagnosis [...] 08/2007 right knee Hx lumbar fusion 05/2008 L5-V1zswpqq with bone spur removals Hx appendectomy Hx [...] (Ciprofloxacin) Tramadol Morphine IM ( only in [facility]) made gut pain worse 08/27/06: Trial of oral MSIR caused leg swelling Clarithromycin Hives Mainly in the legs Llktfmx-ojouewgqxl-jne-caff Balance problems Amitriptyline Grand mal seizures SH: [...] her her documented in this e ncounter Miscellaneous Notes Scan - Other, Faculty - 01/08/2009 1:40 PM PDT can - Bessy Gibbons - 10/04/2008 10:06 PM PDT Electronically signed by Gallo Matthews In at 009 10:06 PM PDTdocumented in this encounter Plan of Treatment + + +--------+ + + | Name | Type | Priori | Associated Diagnoses | Order Schedule | | | | ty | | | + + +--------+ + + | [facility] | Procedures | Routin | Anal or Rectal | Ordered: 10/05/2008 | | ANOSCOPY | | e | Pain | | + + +--------+ + + documented as of this encounter Visit Diagnoses + + | Diagnosis | + + | Anal or rectal pain - Primary | + + documented in this encounter
--- OUTSIDE RECORDS SUMMARY | ~2020-02-29 | XMS | Encounter Summary ---
Demographics + + + | Address | [address] | | | [place] [address] | + + + | Home Phone [...] Providers + +------+ + | Care Psychological Science Professor Name | Role | Phone [...] + | 07/01/ | Telephone | [facility] | Alanis, | Foot Pain | | 2017 | | MEDICINE [address] | MD Petrona | | | | | [place], | [address] [facility] | | | | | [place] [address] | [place] [address] | | | | | [phone] | [phone] | | | | | | | [...] encounter Miscellaneous Notes Telephone Encounter - Maggie Monotya LPN - 07/01/2017 10:51 AM PSTPatient advised that MD krishna ut of the office and will need to go to an urgent or ER in [place] for evaluation and x-ra y. Patient understands [...] 3. Patient wants this order sent to [place]. Please call [phone] to discuss. 18 8:37 AM PSTdocumented in this encounter Plan of Treatment +--------+---------+ + + + | Date | Type | Specialty | Care Team | Description | +--------+---------+ + + + | 05/17/ | Office | Internal Medicine | Alanis, | | | 2019 | Visit | | MD Petrona | | | | | | [address] [place] [address] [place] | | | | | | [place] [address] | | | | | | [phone] | | | | | | | | +--------+---------+ + + + documented as of this encounter Visit Diagnoses Not on filedocumented in this encounter"
--- OUTSIDE RECORDS SUMMARY | ~2020-02-29 | XMS | Encounter Summary ---
Demographics + + + | Address | [address] | | | [place] [address] | + + + | Home Phone [...] Team Providers + +------+ + | Care Underwear Welter Name | Role | Phone | + [...] | Procedures | [address] | [place] | | | | | CONSULT TO | [facility] | [address] | | | | | GI PROCEDURE | Rd | floor | | | | | UNIT: SM | [place], [place] | [place], [place] | | | | | [place]EL | [address] | [address] | | | | | [place] | Phone: | Phone: | | | | | ENDOSCOPY | [phone] | [phone] | | | | | | | Fax: | | | | | | | [phone] | +--------+--------+ + + + + Consultation [...] | | | | | Procedures | [facility] | [place], [place] | | | | | CONSULT TO | Rd | [address] | | | | | PAIN CENTER | [place], [place] | | | | | | | [address] | | | | | | | Phone: | | | | | | | [phone] | | +--------+--------+ + + + + Encounter Details +--------+---------+ + + + | Date | Type | Department | Care Team | Description | +--------+---------+ + + + | 04/07/ | Office | [facility] Division of | Carlos Arreola, | Iron Deficiency; | | 2005 | Visit | Gastroenterology/Hep | [address] | Chronic Abdominal | | | | atology [address] | [facility] | Pain | | | | [address] | [place] [address] | | | | | Mailcode: [id number] | [phone] | | | | | [facility] | | | | | | [address] | | | | | | [place], [place] | | | | | | [address] | | | | | | [phone] | | | +--------+---------+ + + + [...] December reviewed and normal (past ed below). [facility] [place] received and reviewed: [...] HEPATIS NODES. Transcribed By: Armaan Rivera : [id number] : 1224 Approved By: CT ABDOMEN AND [...] HEPATIS NODES. Transcribed By: Armaan Rivera : [id number] : 1224 Approved By: Carlos Benton - 3:59 PM PDTPt seen previously seen by me for chronic pain and PK, returns to [...] of weight loss. See prior note of zane for details and long DDx, most of [...]
--- OUTSIDE RECORDS SUMMARY | ~2020-02-29 | XMS | Encounter Summary ---
Demographics + + + | Address | [address] | | | [place] [address] | + + + | Home Phone [...] Padgett, | | | 2008 | | [place] [address] | [address] | | | | | Bethanie Mailcode: CH[address]S | [address] | | | | | [facility] | [place], [place] | | | | | and Healing, | [address] | | | | | Building , 6th | [phone] | | | | | Floor [place], [place] | | | | | | [address] | | | | | | [phone] | | | +--------+ + + + [...] Notes Telephone Encounter - Zachary Sampson - 01/22/2012 12:55 PM PDTThis encounter has been admin istratively closed with the authorization of the [facility] Committee. elephone Encounter - Nuris Cardenas Rn - 09/21/2008 12:08 PM PDTNotified of normal egd cont carafateElectronically sign ed by Nuris Cardenas Rn at 09/21/2008 12:08 PM PDTTelephone Encounter - Lauren Laughlin - 9 8:45 AM PDTBelinda Meehan Calling to get 4/2 EGD results. I don't see that a letter h as been sent to her yet. Advised caller that they may not receive a call back from nurse or provider until the next business day. Caller understands and is agreeable to this. documented in this encounter Plan of Treatment Not on filedocumented as of this encounter Visit Diagnoses Not on filedocumented in this encounter"
--- OUTSIDE RECORDS SUMMARY | ~2020-02-29 | XMS | Encounter Summary ---
Demographics + + + | Address | [address] | | | [place] [address] | + + + | Home Phone [...] Providers + +------+ + | Care Hvac Sales Engineer Name | Role | Phone | [...] | | | | [address] [facility] | [place], [place] | | | | | [address] | [address] | | | | | [place], [place] | [phone] | | | | | [address] | | | | | | [phone] | | | +--------+ + + + [...]
--- OUTSIDE RECORDS SUMMARY | ~2020-02-29 | XMS | Encounter Summary ---
Demographics + + + | Address | [address] | | | [place] [address] [...] Team Providers + +------+ + | Care Russian Rubber Name | Role | Phone | + +------+ + | Pedrito Gutierrez MD | PCP | | + +------+ + Reason for Visit + +--------+ + | Reason | Onset | Comments | | | Date | | + +--------+ + | Refill Request | 11/22/ | | | | 2009 | | [...] | | | [facility] | [place], [place] | | | | | [address] | [address] | | | | | [address] | [phone] | | | | | [facility] | | | | | | Physician's | | | | | | Pavilion [place], | | | | | | [place] [address] | | | | | | [phone] | | | +--------+--------+ + + + [...] Notes Telephone Encounter - Lisa Mccarthy - 11/22/2008 10:00 AM PDTRx approved per john haines documented in this encoun ter Plan of Treatment Not on filedocumented as of this encounter Visit Diagnoses Not on filedocumented in this encounter"
--- OUTSIDE RECORDS SUMMARY | ~2020-02-29 | XMS | Encounter Summary ---
Demographics + + + | Address | [address] | | | [place] [address] | + + + | Home Phone [...] Team Providers + +------+ + | Care Advertising Clerk Name | Role | Phone | [...] + + | 09/09/ | Office | [facility] Comprehensive | Delfina Molina, | Spondylosis with | | 2006 | Visit | Pain Center at | ANP | Myelopathy, Lumbar | | | | [facility] | | Region; DJD | | | | [address] | | (Degenerative Joint | | | | [facility] | | Disease) of Left | | | | and Healing, | | Knee; Fibromyalgia | | | | Building | | syndrome 729.1; | | | | Floor [place], [place] | | Major Depressive | | | | [address] | | Disorder, Recurrent | | | | [phone] | | Episode, Moderate | | | | | | ([facility]); Adjustment | | | | [...] change every 72 hours. 2. Continue with Paris 10/325 1 tablet as needed for activity [...] Belinda Meehan is a 46 y.o. female [facility] Comprehensive Pain Center Return Visit [...] ev eduardo 72 hours. 2. Continue with Paris 10/325 1 tablet as needed for activity related pain NTE 3 per day. 3. Continue with pain psychology and physical therapy. 4. Follow up in two weeks to review medication management 5. Keep neurology evaluation as able with insurance aurthorization.- migraine headache eval uation 6. PCP to assess LE edema/swelling. DELFINA MOLINA [facility] Comprehensive Pain Center Mail code CH 4P [facility] and [address] [address] Ailyn Foster 09/10/19 12:20 PM [...]
--- OUTSIDE RECORDS SUMMARY | ~2020-02-29 | XMS | Encounter Summary ---
Demographics + + + | Address | [address] | | | [place] [address] | + + + | Home Phone [...] Providers + +------+ + | Care Process Safety Manager Name | Role | Phone | + +------+ + | [place]ron[place] Thapa | PCP | | | MD | | | + +------+ + Reason for Visit +--------+--------+ + | Reason | Onset | Comments | | | Date | | +--------+--------+ + | Other | 02/09/ | | | | 2018 | | +--------+--------+ + Encounter Details +--------+ + + + + | Date | Type | Department | Care Team | Description | +--------+ + + + + | 02/09/ | Telephone | [facility] | Alanis, | Other | | 2018 | | MEDICINE [address] | MD [place] | | | | | [place], | [address] [facility] | | | | | [place] [address] | [place] [address] | | | | | [phone] | [phone] | | | | | | | [...] Telephone Encounter - Maggie Montoya LPN - 02/09/2019 2:00 PM PDTPatient notified have not received Dr. Strickland's notes at this time. Patient has a follow up appt with him on Thursday. Senthil pratt MD to know is on 2 different antibiotics for her foot infection. FYIElectronically karlos d by Maggie Montoya LPN at 02/09/2019 2:01 PM PDTTelephone Encounter - Sia Bai - 02/09 1:25 PM PDTPatient calling in to see if report from Dr Pires's office has been received about foot infection. Please Advise documented in this encounter Plan of Treatment [...] | | | | | [place] [address] | | | | | | [phone] | | | | | | | | +--------+---------+ + + + documented as of this encounter Visit Diagnoses Not on filedocumented in this encounter"
--- OUTSIDE RECORDS SUMMARY | ~2020-02-29 | XMS | Encounter Summary ---
Demographics + + + | Address | [address] | | | [place] [address] | + + + | Home Phone [...] Providers + +------+ + | Care Ground Water Technician Name | Role | Phone | + +------+ + | Pedrito Gutierrez MD | PCP | | + +------+ + Reason for Visit +--------+--------+ + | Reason | Onset | Comments | | | Date | | +--------+--------+ + | Other | 08/01/ | jasmin marcus | | | 2008 | | +--------+--------+ + Encounter Details +--------+ + + + + | Date | Type | Department | Care Team | Description | +--------+ + + + + | 08/01/ | Telephone | [facility] | Chris Padgett, | Other (wondering | | 2008 | | Center [address] | [address] | ablout colonoscopy) | | | | Ave Mailcode: CH4S | [address] | | | | | [facility] | [place], [place] | | | | | and [place], | [address] | | | | | [place] [address] [facility] | [phone] | | | | | Floor [place], [place] | | | | | | [address] | | | | | | [phone] | | | +--------+ + + + [...] Telephone Encounter - Nuris Cardenas Rn - 08/10/2008 10:51 AM PSTReferral in for pt to see Dr Yudy Valenzuela. Pt aware someone will call her to schedule. elephone Encounter - Nuris Cardenas Rn - 08/04/2008 12:57 PM PSTI spoke w/pt last week. I told her I would check on colonoscopy and hemorrhoid surgery with the [facility] surgeons. LVM that I would call as soon as I had an answer. elephone Encounter - Yaritza Bearden - 08/04/2008 10:45 AM PSTPatient calling in again to find out when she needs to get colonoscopy done. S he has not heard back from anyone. Advised caller that they may not receive a call back fro m nurse or provider until the next business day. Caller understands and is agreeable to thi s. elephone Encounter - Inga Sam - 08/01/2008 8:52 AM PSTPt had GB and dr Padgett also ordered a colonoscopy and she is wondering when she should have another one done because they found polyps Electro nically signed by Inga Bourgeois at 08/01/2008 8:52 AM PSTdocumented in this encounter Plan of Treatment Not on filedocumented as of this encounter Visit Diagnoses Not on filedocumented in this encounter"
--- OUTSIDE RECORDS SUMMARY | ~2020-02-29 | XMS | Encounter Summary ---
Demographics + + + | Address | [address] | | | [place] [address] | + + + | Home Phone [...] Team Providers + +------+ + | Care Grounds Manager Name | Role | Phone | [...] as of this encounter Progress Notes Interface, Stroke Program Coordinator In - 01/11/2005 7:39 PM PDT Referred [...] 3-6 months time. She is coming from [place] so this can be scheduled on the same day of her physician visit. General surgery can schedule this. 5. RNajma's business card with contact information for questions. Sevtlana Maki R.D., L.D. SR/y39 P [phone] cc: documente d in this encounter Plan of Treatment Not on filedocumented as of this encounter Visit Diagnoses Not on filedocumented in this encounter"
--- OUTSIDE RECORDS SUMMARY | ~2020-02-29 | XMS | Encounter Summary ---
Demographics + + + | Address | [address] | | | [place] [address] | + + + | Home Phone [...] Team Providers + +------+ + | Care Broaching Machine Set Up Operator Name | Role [...] Acute pain | [facility] | [address] | | | | | of right | i, | [place], | | | | | shoulder | [place] | [place] | | | | | Procedures | , [place] [address] | [address] | | | | | MRI Shoulder | [address] | Phone: | | | | | Right wo | [place], | [phone] | | | | | Contrast | [place] | Fax: | | | | | | [address] | [phone] | | | | | | Phone: | | | | | | | [phone] | | | | | | | Fax: | | | | | | | [phone] | | +--------+--------+ + + + + [...] Acute pain | Emmy[facility]Tajt | [address] | | | | | of right | i, | [place], | | | | | shoulder | [place] | [place] | | | | | Procedures | , [place] [address] | [address] | | | | | MRI Shoulder | [address] | Phone: | | | | | Right wo | [place], | [phone] | | | | | Contrast | [place] | Fax: | | | | | | [address] | [phone] | | | | | | Phone: | | | | | | | [phone] | | | | | | | Fax: | | | | | | | [phone] | | +--------+--------+ + + + + Encounter Details +--------+ + + + + | Date | Type | Department | Care Team | Description | +--------+ + + + + | 02/17/ | Hospital | [facility] | Alanis, | Acute pain of right | | 2018 | Encounter | MED CTR MRI [address] | MD [place] | shoulder | | | | [address] [place], | [address] [place] | | | | | [place] [address] | [place] [address] | | | | | [phone] | | | | | | | [...] | | | | | [place] [address] | | | | | | [phone] | | | | | | | [...]
--- OUTSIDE RECORDS SUMMARY | ~2020-02-29 | XMS | Encounter Summary ---
Demographics + + + | Address | [address] | | | [place] [address] | + + + | Home Phone [...] Team Providers + +------+ + | Care Palliative Care Nurse Name | Role | Phone | [...] + + | 05/14/ | Telephone | [facility] | Erich Conley MD | Medication Refill | | 2018 | | [address] | [address] [facility] | | | | | [place], | [place] | | | | | [place] [address] | [address] | | | | | [phone] | | | +--------+ + + + [...] | | | | | [place] [address] | | | | | | [phone] | | | | | | | | +--------+---------+ + + + documented as of this encounter Visit Diagnoses Not on filedocumented in this encounter"
--- OUTSIDE RECORDS SUMMARY | ~2020-02-29 | XMS | Encounter Summary ---
Demographics + + + | Address | [address] | | | [place] [address] | + + + | Home Phone [...] Providers + +------+ + | Care Control Operator Flow Coat Name | Role | Phone | + +------+ + | Petrona Thapa | PCP | | | MD | | | + +------+ + Encounter Details +--------+ + + + + | Date | Type | Department | Care Team | Description | +--------+ + + + + | 11/14/ | Hospital | [facility] | Alanis, | Toe pain, chronic, | | 2019 | Encounter | [facility] | MD Petrona | left | | | | [address] | [address] [facility] | | | | | [place], [place] | [place] [address] | | | | | [address] | [phone] | | | | | [phone] | | | +--------+ + + + [...] puffs into | 1 | 5 | 03/04/20 | | | mcg/puff inhaler | the [...] | | | | | | : terminal computer operator | Decreased | | | | | [...] daily. | tablet | | 20 | 0 | | ne (LOMOTIL) | | | [...] morning | capsule | | 20 | 0 | | capsule | and 2 capsules by | | | | | | | mouth every evening | | | | | + + + +---------+ + + | metoprolol | take 1/2 tablet by | 30 | 11 | 02/18/20 | | | tartrate (LOPRESSOR) | mouth twice a day | tablet | | 19 | 0 | | 25 mg tablet | | | | | | + + + +---------+ + + | ondansetron | Take 1 tablet by | 270 | 2 | 02/12/20 | | | (ZOFRAN ODT) 4 mg | mouth every 8 hours | tablet | | 19 | 0 | | disintegrating | as needed for [...] for | tablet | | 19 | 0 | | tabletIndications: | Migraine. Take 1 [...] WEEK | tablet | | 19 | 0 | | tablet | | | | | | + + + +---------+ + + | traZODone | Take 1 tablet by | 30 | 3 | 03/21/20 | | | (DESYREL) 50 mg | mouth nightly as | tablet | | 19 | 0 | | tabletIndications: | needed for Insomnia. [...] | | | | | [place] [address] | | | | | | [phone] | | | | | | | [...] encounter Results IMAGING REPORT - EXTERNAL SCAN (11/17/2019 12:00 AM PDT) + + + | Narrative | Performed At | + + + | Ordered by an | | | unspecified provider. | | + + + XR Deepak Left 2 + Alpesh (11/15/2019 10:42 AM PDT) + + | [...]
--- OUTSIDE RECORDS SUMMARY | ~2020-02-29 | XMS | Encounter Summary ---
Demographics + + + | Address | [address] | | | [place] [address] | + + + | Home Phone [...] Providers + +------+ + | Care Hydro Plant Site Manager Name | Role | Phone | [...] | | | Metabolism | bypass | [address] | [address] | | | | | Hypovitamino | [address], | [address] | | | | | sis D B12 | [address] | [place], [place] | | | | | nutritional | [place], [place] | [address] | | | | | deficiency | [address] | Phone: | | | | | Other | Phone: | [phone] | | | | | protein-jose manuel | [phone] | Fax: | | | | | nick | Fax: | [phone] | | | | | malnutrition | [phone] | | | | | | Weight | | | | | | | gain | | | | | | | Procedures | | | | | | | CONSULT TO | | | | | | | ENDO | | | | | | | [address] | | | | | | | [address] | | | +--------+--------+ + + + [...] | | | [facility] | [place], [place] | Dx); Hypothyroidism; | | | | [address] | [address] | Essential | | | | [address] | [phone] | hypertension 401.9; | | | | [facility] | | Fibromyalgia | | | | Physician's | | syndrome 729.1 | | | | Pavilion [place], | | | | | | [place] [address] | | | | | | [phone] | | | +--------+---------+ + + + [...] might be different from th e original. Endocrinology Clinic Subjective Belinda Meehan is a [...] Hives Mainly in the legs Clindamycin Codeine Xfrtfsi-Ovlfqdsqyj-Frn-Caff Balance problems Fioricet W/Codeine (Cqcocvdjlc-Xougqxzacb-Afh-Cod) Keflex (Cephalexin) Morphine IM ( only in [facility]) made gut pain worse 08/27/06: Trial [...] U/L 41 ANION GAP 8 VITAMIN B12, [id number] pg/ml >2000 (H) HEMOGLOBIN A1C <=5.6 % [...] SERUM 15.0-85.0 pg/ml 222.9 (H) VITAMIN B12, [id number] pg/ml > 2000 HEMOGLOBIN A1C <=5.6 % [...]
--- OUTSIDE RECORDS SUMMARY | ~2020-02-29 | XMS | Encounter Summary ---
Demographics + + + | Address | [address] | | | [place] [address] | + + + | Home Phone [...] Providers + +------+ + | Care Assistant Professor Surgical Technology Name | Role | Phone | + +------+ + | Petrona Thapa | PCP | | | MD | | | + +------+ + Reason for Visit + +--------+ + | Reason | Onset | Comments | | | Date | | + +--------+ + | Medication Refill | 07/19/ | | | | 2020 | | + +--------+ + Encounter Details +--------+--------+ + + + | Date | Type | Department | Care Team | Description | +--------+--------+ + + + | 07/19/ | Refill | [facility] | Alanis, | Medication Refill | | 2019 | | MEDICINE [address] | MD Petrona | | | | | [place], | [address] [place] | | | | | [place] [address] | [place] [address] | | | | | [phone] | [phone] | | | | | | | [...] | | | | | [place] [address] | | | | | | [phone] | | | | | | | | +--------+---------+ + + + documented as of this encounter Visit Diagnoses Not on filedocumented in this encounter"
--- OUTSIDE RECORDS SUMMARY | ~2020-02-29 | XMS | Encounter Summary ---
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 2. May continue with [place] NTE 4 per day as prescribed 3. [...] Belinda Meehan is a 46 y.o. female [facility] Comprehensive Pain [...] seen Dr. Morales in orth opedics at [facility], she reports that surgery is not an [...] swelling has resolved. Belinda has been using [place] 10/325 an average of 5 tablets per day. 1 tablet has an effecti ve duration of 5 hours "pain breaks through at about 4 hours", she reports taking a [place] ev eduardo 5 hours. She denies any [...] Collection Time Resulting Agency 07/30/2006 4:00 PM [facility] DEPARTMENT OF PATHOLOGY Component Results Component Value [...] previous 6 days. 2. May continue with [place] NTE 4 per day as prescribed 3. Continue with PT and Psychology as scheduled. 4. Continue with Trileptal 150mg 1 1/2 tablet twice a day 5. Follow up to review medications on 09/09/06 and call with any concerns or questions. DELFINA MOLINA [facility] Mail code CH 4P [facility] [address] [facility] [address] Ailyn Foster 08/27/19 07 9:09 AM PDTCMA History: PMH/PSH/SH/FH review 1. [...]
--- OUTSIDE RECORDS SUMMARY | ~2020-02-29 | XMS | Encounter Summary ---
Demographics + + + | Address | [address] | | | [place] [address] | + + + | Home Phone [...] + + | 07/24/ | Office | [facility] | Delfina Lambert, | Chronic Bilateral | | 2008 | Visit | Pain Center at | ANP | Shoulder Pain | | | | [facility][Note 3] | | (Primary Dx); Spinal | | | | [address] | | Fusion Lumbar spine | | | | [facility] | | ; LBP (Low Back | | | | and Healing, | | Pain); Osteopenia; | | | | Building | | Fibromyalgia | | | | Floor [place], [place] | | syndrome 729.1; | | | | [address] | | Major Depressive | | | | [phone] | | Disorder, Recurrent | | | | | | Episode, Moderate | | | | | | ([facility]); Adjustment | | | | | [...] Meehan is a 48 y.o. female [facility] [...] GOMES MD Mon Jul 10, 2008 Subjective: Belinda Meehan is a 48 year [...] 300 mg) by oral route once daily ucjvffxuhk-mnbcjsnkotdir-iarzdbeb (FIORICET) 50-325-40 mg Oral Tablet take 2 [...] 278 01/18 Paniculectomy Hx lumbar fusion 05/2008 L1-F3khjecw with bone spur removals Family History Problem [...] plain x rays of bilateral shoulders, today [facility] building third floor, I reviewed the [...] COM[facility] Mail code CH 4P [facility] and [address] [address] dmundo Ailyn Malissa - 02/2009 3:13 PM PSTCMA History: PMH/PSH/SH/FH [...] Miscellaneous Notes Scan - Other, Faculty - 08/23/2012 1:35 PM PDTElectronically signed by Faculty Other at 1:36 PM PDTScan - Ewdige, Faculty - 08/31/2008 11:41 AM PDT documented in this encounter Plan [...] | | + +---------+ + + | [facility] | | | | | RADIOLOGY | [...]
--- OUTSIDE RECORDS SUMMARY | ~2020-02-29 | XMS | Encounter Summary ---
Demographics + + + | Address | [address] | | | [place] [address] | + + + | Home Phone [...] Team Providers + +------+ + | Care Bell Attendant Name | Role | Phone | [...] 2016 | | NEUROLOGY [place] | [facility] | | | | | [facility], | [place] [address] | | | | | [address] [place] | [place] | | | | | [place] [address] | [address] | | | | | [phone] | | | +--------+ + + + [...] | | | | | [place] [address] | | | | | | [phone] | | | | | | | | +--------+---------+ + + + documented as of this encounter Visit Diagnoses Not on filedocumented in this encounter"
--- OUTSIDE RECORDS SUMMARY | ~2020-02-29 | XMS | Encounter Summary ---
Demographics + + + | Address | [address] | | | [place] [address] | + + + | Home Phone [...] Providers + +------+ + | Care Material Assistant Name | Role | Phone | + +------+ + | Petrona Thapa | PCP | | | MD | | | + +------+ + Reason for Visit + +--------+ + | Reason | Onset | Comments | | | Date | | + +--------+ + | Medication Refill | 12/18/ | | | | 2020 | | + +--------+ + Encounter Details +--------+--------+ + + + | Date | Type | Department | Care Team | Description | +--------+--------+ + + + | 12/18/ | Refill | [facility] | Alanis, | Medication Refill | | 2019 | | MEDICINE [address] | MD Petrona | | | | | [place], | [address] [place] | | | | | [place] [address] | [place] [address] | | | | | [phone] | | | | | | | [...] | | | | | [place] [address] | | | | | | [phone] | | | | | | | | +--------+---------+ + + + documented as of this encounter Visit Diagnoses Not on filedocumented in this encounter"
--- OUTSIDE RECORDS SUMMARY | ~2020-02-29 | XMS | Encounter Summary ---
Demographics + + + | Address | [address] | | | [place] [address] | + + + | Home Phone [...] | [facility] | | | [...] + + | 09/13/ | Telephone | [facility] | Alanis, | Appointment | | 2018 | | MEDICINE [address] | MD Petrona | | | | | [place], | [address] [facility] | | | | | [place] [address] | [place] [address] | | | | | [phone] | [phone] | | | | | | | [...] the nurse regarding her appointment on 09/15/18, gagan aguirreld like to know if she will received [...] | | | | | [place] [address] | | | | | | [phone] | | | | | | | | +--------+---------+ + + + documented as of this encounter Visit Diagnoses Not on filedocumented in this encounter"
--- OUTSIDE RECORDS SUMMARY | ~2020-02-29 | XMS | Encounter Summary ---
Demographics + + + | Address | [address] | | | [place] [address] | + + + | Home Phone [...] Providers + +------+ + | Care Psychiatry Teacher Name | Role | Phone | + +------+ + | Petrona Thapa | PCP | | | MD | | | + +------+ + Reason for Visit + +--------+ + | Reason | Onset | Comments | | | Date | | + +--------+ + | Lab Results | 11/16/ | | | | 2018 | | + +--------+ + Encounter Details +--------+ + + + + | Date | Type | Department | Care Team | Description | +--------+ + + + + | 11/16/ | Telephone | [facility] | Alanis, | Lab Results | | 2018 | | MEDICINE [address] | MD Petrona | | | | | [place], | [address] [facility] | | | | | [place] [address] | [place] [address] | | | | | [phone] | [phone] | | | | | | | [...] Telephone Encounter - Maggie Montoya LPN - 11/18/2018 1:01 PM PDTPatient notified of lab a ll lab results elephon jennifer Encounter - Bob Melgar - 11/18/2018 11:46 AM PDTPatient called states she moul d like a rerun phobe call. Please call [phone] regarding her labs that were done 11/16/[address] - Maggie Montoya LPN - 11/16/2018 8:59 AM PDTPatient notified of lab results with co mments/recommendations. Also increase in dosage of Imitrex. elephone Shlomo - Maggie Montoya LPN - 11/16/2018 8 :59 AM PDT----- Message from Petrona Thapa MD sent at 11/16/2018 8:41 PDT ----- There is no evidence of rheumatoid arthritis or gouty arthritis or other inflammatory arthr itis in her labs. This makes it very likely that her joint problems are related to osteoart hritis, or wear and tear. The pain medication she takes & extra Tylenol up to maximum of 3 g/day can help. Also let her know that I have sent a double dose of Imitrex into her pharmacy for her migra danae. documented in this enc ounter Plan of Treatment +--------+---------+ + + + | Date | Type | Specialty | Care Team | Description | +--------+---------+ + + + | 05/17/ | Office | Internal Medicine | Alanis, | | | 2019 | Visit | | MD [place] | | | | | | [facility] [address] | | | | | | [place] [address] | | | | | | [phone] | | | | | | | | +--------+---------+ + + + documented as of this encounter Visit Diagnoses Not on filedocumented in this encounter"
--- OUTSIDE RECORDS SUMMARY | ~2020-02-29 | XMS | Encounter Summary ---
Demographics + + + | Address | [address] | | | [place] [address] | + + + | Home Phone [...] Team Providers + +------+ + | Care Wax Pot Tender Name | Role | Phone | [...] [address] | | | | | | [place], [place] | | | | | | [address] | | | | | | [phone] | | | +--------+ + + + [...] istratively closed with the authorization of the [facility] Committee. elephone Encounter - Miranda [...]
--- OUTSIDE RECORDS SUMMARY | ~2020-02-29 | XMS | Encounter Summary ---
Demographics + + + | Address | [address] | | | [place] [address] | + + + | Home Phone [...] Providers + +------+ + | Care Brim Pouncing Machine Operator Name | Role | Phone | + +------+ + | Pedrito Gutierrez MD | PCP | | + +------+ + Reason for Visit +--------+--------+ + | Reason | Onset | Comments | | | Date | | +--------+--------+ + | Other | 09/15/ | | | | 2008 | | +--------+--------+ + Encounter Details +--------+ + + + + | Date | Type | Department | Care Team | Description | +--------+ + + + + | 09/14/ | Telephone | [facility] | VenkatnagaChris dennis, | Other | | 2008 | | Center [address] | [address] [facility] | | | | | Beth[place] Mailcode: CH4S | [facility] | | | | | [facility] | [place], [place] | | | | | and [facility], | [address] | | | | | [place] [address] | [phone] | | | | | Floor [place], [place] | | | | | | [address] | | | | | | [phone] | | | +--------+ + + + [...] Telephone Encounter - Kenisha Melton ACNP - 09/15/2008 5:38 PM PDTNikki was not at home when I called. I recommended Eucerin hand cream, Triple Lanolin. Will discuss with her why her hands are so cracked and "bleeding." elephone Encounter - Herrera Lolly K - 09/14/2008 3:22 PM Gini Meehan calling would like to know what lotion she was given to use in the hospital when she had her surgery here. She has severly cracked, bleeding hands. Please call Pain Scale: Recent Surgery or Procedure: no Pharmacy: Pharmacy Preferences: [address] [place] [address] [place] [phone] documented in this encoun ter Plan of Treatment Not on filedocumented as of this encounter Visit Diagnoses Not on filedocumented in this encounter
--- OUTSIDE RECORDS SUMMARY | ~2020-02-29 | XMS | Encounter Summary ---
Demographics + + + | Address | [address] | | | [place] [address] | + + + | Home Phone [...] Providers + +------+ + | Care Instrument Designer Name | Role | Phone | + +------+ + | Petrona Thapa | PCP | | | MD | | | + +------+ + Reason for Visit + +--------+ + | Reason | Onset | Comments | | | Date | | + +--------+ + | Results, Imaging | 09/16/ | | | | 2018 | | + +--------+ + Encounter Details +--------+ + + + + | Date | Type | Department | Care Team | Description | +--------+ + + + + | 09/16/ | Telephone | [facility] | Alanis, | Results, Imaging | | 2018 | | [facility] [address] | MD Petrona | | | | | [place], | [address] [place] | | | | | [place] [address] | [place] [address] | | | | | [phone] | [phone] | | | | | | | [...] Telephone Encounter - Maggie Montoya LPN - 09/21/2018 2:06 PM PDTColumb[facility] notified of comments, requested last chart note, ok per to fax chart note for r eview elephone Encounsebastian r Maggie Ji LPN - 09/16/2018 12:54 PM PDT----- Message from Petrona López i, MD sent at 09/15/2018 15:48 PDT ----- X-ray shows no fracture. When you have time, could you let her pain specialist or their staff know about her fall pl ease. elephone Encounte r Maggie Ji LPN - 09/16/2018 12:54 PM PDTPatient notified of x-ray results with MD bailey mments elephone Sia Meier - 09/16/2018 12:30 PM PDTPatient calling in to see if results are back aren madera she got done yesterday, patient can be reached at [phone] signed Tiburcio Bai at 09/16/2018 12:33 PM PDTdocumented in this encounter Plan of Treatment +--------+---------+ + + + | Date | Type | Specialty | Care Team | Description | +--------+---------+ + + + | 05/17/ | Office | Internal Medicine | Alanis, | | | 2019 | Visit | | MD Petrona | | | | | | [address] [place] [address] [place] | | | | | | [place] [address] | | | | | | [phone] | | | | | | | | +--------+---------+ + + + documented as of this encounter Visit Diagnoses Not on filedocumented in this encounter"
--- OUTSIDE RECORDS SUMMARY | ~2020-02-29 | XMS | Encounter Summary ---
Demographics + + + | Address | [address] | | | [place] [address] | + + + | Home Phone [...] Team Providers + +------+ + | Care Sign Shop Supervisor Name | Role | Phone | + +------+ + | Pedrito Gutierrez MD | PCP | | + +------+ + Reason for Visit +--------+--------+ + | Reason | Onset | Comments | | | Date | | +--------+--------+ + | Other | 09/11/ | abdominal swelling | | | 2008 | | +--------+--------+ + Encounter Details +--------+ + + + + | Date | Type | Department | Care Team | Description | +--------+ + + + + | 09/11/ | Telephone | [facility] | Chris Padgett, | Other (abdominal | | 2008 | | Center [address] | [address] | swelling) | | | | Ave Mailcode: CH4S | [facility] | | | | | [facility] | [place], [place] | | | | | and [place], | [address] | | | | | [place] [address] [facility] | [phone] | | | | | Floor [place], [place] | | | | | | [address] | | | | | | [phone] | | | +--------+ + + + [...] Notes Telephone Encounter - Kenisha MeltonANAYA - 09/11/2008 9:02 AM PDTPt. Attributed her f all, one of many to her amitriptylline, and discontinued it.. She reports abdominal swellin g, no melena, no hematemesis. She is due for EGD on Thursday here at [facility]. She will see h er PCP today. She reports being bent over and not aware for 2.5 hours during her fall on . No head trauma evident. elephone Encounter - Lolly Herrera - 09/11/2008 8:04 AM Gini Kyle ms calling had a fall night. Abdomin is swollen and very painful. Please call. Pain Scale: 10+ on pain meds Recent Surgery or Procedure: no Pharmacy: Pharmacy Preferences: [facility] [facility] Milly [place] [address] [facility] [place] [phone] documented in this encoun ter Plan of Treatment Not on filedocumented as of this encounter Visit Diagnoses Not on filedocumented in this encounter"
--- OUTSIDE RECORDS SUMMARY | ~2020-02-29 | XMS | Encounter Summary ---
Demographics + + + | Address | [address] | | | [place] [address] | + + + | Home Phone [...] Providers + +------+ + | Care Home Service Technician Name | Role | Phone [...] as of this encounter Progress Notes Interface, Apparel Manufacture Instructor In - 01/12/2005 10:09 AM PDT [id number] [facility] Date: 12/25/2004 Clinic: GENERAL [...] will send an emergency supply fax to [facility] at fax #[phone], first 30 pills, oxycodone 5 mg to [...] the current plan. Melisa Thorne / SHARIF [id number] / [id number] / [id number] / [id number] Electronically signed by Kenisha Melton 01-01-2005 04:41:20 PM documented i n this encounter Plan of Treatment Not on filedocumented as of this encounter Visit Diagnoses Not on filedocumented in this encounter"
--- OUTSIDE RECORDS SUMMARY | ~2020-02-29 | XMS | Encounter Summary ---
Demographics + + + | Address | [address] | | | [place] [address] | + + + | Home Phone [...] Providers + +------+ + | Care Campaign Coordinator Name | Role | Phone | + +------+ + | Pedrito Gutierrez MD | PCP | | + +------+ + Encounter Details +--------+ + + + + | Date | Type | Department | Care Team | Description | +--------+ + + + + | 01/11/ | Telephone | [facility] | Chris Padgett, | | | 2009 | | [place] [address] | [address] [facility] | | | | | [place] Mailcode: CH4S | [facility] | | | | | [facility] | [place], [place] | | | | | and Healing, | [address] | | | | | Building | [phone] | | | | | Floor [place], [place] | | | | | | [address] | | | | | | [phone] | | | +--------+ + + + [...] Miscellaneous Notes Telephone Encounter - Ivy Colon - 01/14/2010 11:49 AM PDTLabs faxed [phone]. LM for Belinda at number listed in her message that lab orders were faxed. Contact info give n if has questions. eleph one Encounter - Adriana Israel - 01/11/2010 1:22 PM Gini is calling to request that the lab orders be faxed to [facility] in [place], [place] at [phone]. Please call the p t at [phone] once this has been done. Advised caller that they may not receive a call b ack from nurse or provider until the next business day. Caller understands and is agreeable to this. documented in this encou nter Plan of Treatment Not on filedocumented as of this encounter Visit Diagnoses Not on filedocumented in this encounter"
--- OUTSIDE RECORDS SUMMARY | ~2020-02-29 | XMS | Encounter Summary ---
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 female [facility] Return Visit Chief [...] Dr. Ogden 08/13/2007 Since prior visit, Belinda J reports that mood is depressed, she reports [...] Additional Family History Mother Migraine Resulting Agency [facility] OF CARE TESTS Result Impression NAME: BELINDA MEEHAN MR #: [id number] DATE OF EXAM: [id number] PHYSICIAN: EMMA ROJAS [...] DISK BULGE. Transcribed By: Armaan Mata : [id number] : 1442 Approved By: Radiologist: Physical Examination: [...] seeing Nathalia Arora PT here at the [facility] [place] to address her back pain that would [...] vs Hernia. 6. PT here at the [facility] available 7. Repeat TESI as needed. DELFINA MOLINA [facility] Mail code CH 4P [facility] [address] [facility] [address] Ty Omalley - 9:12 AM PDTCMA History: PMH/PSH/SH/ review 1. Has your [...]
--- OUTSIDE RECORDS SUMMARY | ~2020-02-29 | XMS | Encounter Summary ---
Demographics + + + | Address | [address] | | | [place] [address] | + + + | Home Phone [...] Team Providers + +------+ + | Care Plodding Operator Name | Role | Phone | [...] Rd | | | | | | [place], [place] | | | | | | [address] | | | +--------+ + + + [...]
--- OUTSIDE RECORDS SUMMARY | ~2020-02-29 | XMS | Encounter Summary ---
Demographics + + + | Address | [address] | | | [place] [address] | + + + | Home Phone [...] Providers + +------+ + | Care Cloth Measurer Machine Name | Role | Phone | + +------+ + | Pedrito Gutierrez MD | PCP | | + +------+ + Reason for Visit +--------+--------+ + | Reason | Onset | Comments | | | Date | | +--------+--------+ + | Other | 03/01/ | would like labs put in | | | 2007 | | +--------+--------+ + Encounter Details +--------+ + + + + | Date | Type | Department | Care Team | Description | +--------+ + + + + | 03/01/ | Telephone | [facility] | Chris Padgett, | Other (would like | | 2007 | | [place] [address] | [address] | labs put in) | | | | Ave Mailcode: CH4S | [facility] | | | | | [facility] | [place], [place] | | | | | and [place], | [address] | | | | | [facility] | [phone] | | | | | [place], [place] | | | | | | [address] | | | | | | [phone] | | | +--------+ + + + [...] Notes Telephone Encounter - Kenisha Melton - 03/02/2008 11:57 AM PDTThe results are for labs d one 02/28, I do not know why she is calling for orders to be placed after that date. There i s no stool culture ordered for C diff, preferred elephone Encounter - Theresa Sanchez, Nuris Armijo - 03/02/2008 11:47 AM PDTPt fo llowed by Shadia Melton ACNP P DTTelephone Encounter - Yola Toscano - 03/02/2008 11:25 AM PDTMsg routed to incorrect pool. W ill forward to Nuris Cardenas. elep martell Encounter - Lolly Beckham - 03/02/2008 11:11 AM PDTShe is coming into down today and wants to know about getting labs done todayElectronically signed by Lolly Beckham at 2007 11:11 AM PDTTelephone Encounter - Kenisha Melton - 03/01/2008 4:38 PM PDTHer PCP di d not feel that she needed a c diff culture. I sent over orders to be done in [place]. S he had antibiotics preop over a month ago. Will order labs. elephone Encounter - Inga Bourgeois - 03/01/2008 4:0 4 PM PDTPt is coming to [facility] tomorrow for an appt and she would like to have some labs done her PCP is out of town and she was wondering if we could order these she is having severe di arrhea documented in th is encounter Plan of Treatment Not on filedocumented as of this encounter Visit Diagnoses + + | Diagnosis | + + | Diarrhea following gastrointestinal surgery - Primary Other postoperative functional | | disorders | + + documented in this encounter"
--- OUTSIDE RECORDS SUMMARY | ~2020-02-29 | XMS | Encounter Summary ---
Demographics + + + | Address | [address] | | | [place] [address] | + + + | Home Phone [...] Team Providers + +------+ + | Care Benefits Specialist Recruiter Name | Role | Phone | [...] of this encounter Progress Notes Interface, Scientific Artist In - 08/19/2005 2:05 AM PST [id number] [facility] Date: 07/24/2005 Clinic: Hematology/Oncology [...] or malignancies. 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 She still smokes 1/2 [...] are appreciated. No petechiae. Laboratory: Labs from [place]: Homocysteine 8.5 and SANIA negative. CBC: White [...] laboratory studies that have been obtained from [place], it does not appear that she has [...] she stop taking vitamin E supplementation. Karen Hoff M.D. Lukasz Sellers M.D. bicycle technician / [id number] / [id number] / [id number] / [phone] cc: Pedrito Gutierrez M.D. [facility] [address] [place] [address] FAX: [phone] Electronically signed by Lukasz Sellers 08-18-2005 01:27:53 PM documented i n this encounter Plan of Treatment Not on filedocumented as of this encounter Visit Diagnoses Not on filedocumented in this encounter"
--- OUTSIDE RECORDS SUMMARY | ~2020-02-29 | XMS | Encounter Summary ---
Demographics + + + | Address | [address] | | | [place] [address] | + + + | Home Phone [...] Providers + +------+ + | Care Aircraft Powerplant Repairer Name | Role | Phone | [...] | | | | Loop Mailcode: | [address] | | | | | [address] Physician's | [place], [place] | | | | | [address] | [address] | | | | | [place], [place] | [phone] | | | | | [address] | | | | | | [phone] | | | +--------+ + + + [...] + +---------+ + + | [facility] DEPARTMENT OF | | | | | [...] + +---------+ + + | [facility] DEPARTMENT OF | | | | | RADIOLOGY | | | | + +---------+ + + documented in this encounter Visit Diagnoses Not on filedocumented in this encounter"
--- OUTSIDE RECORDS SUMMARY | ~2020-02-29 | XMS | Encounter Summary ---
Demographics + + + | Address | [address] | | | [place] [address] | + + + | Home Phone [...] Providers + +------+ + | Care Property Management Assistant Name | Role | Phone | [...] Medication Refill | | 2017 | | [facility] [address] | MD Petrona | | | | | [place], | [address] [place] | | | | | [place] [address] | [place] [address] | | | | | [phone] | [phone] | | | | | | | [...] upcoming appt scheduled elephone Encounter - Malissa eRdd - 08/31/2017 4:38 PM PDTMedication: Gabapentin Strength: 300mg Directions: 4 tablets 3 times daily Quantity: unknown Pharmacy: [facility] in [place] Call/Mail/Shuttle Inspector/Fax: cupola melting supervisor Date of Last Refill: 07/25/17 Date [...] | | | | | | [address] [place] [address] [place] | | | | | | [place] [address] | | | | | | [phone] | | | | | | | | +--------+---------+ + + + documented as of this encounter Visit Diagnoses + + | Diagnosis | + + | Chronic bilateral low back pain without sciatica | + + documented in this encounter"
--- OUTSIDE RECORDS SUMMARY | ~2020-02-29 | XMS | Encounter Summary ---
Demographics + + + | Address | [address] | | | [place] [address] | + + + | Home Phone [...] Team Providers + +------+ + | Care Celluloid Trimmer Name | Role | Phone | [...] | | | | FAMILY | Rd [place], | | | | | | MEDICINE | [place] | | | | | | [address] | [address] | | | | | | [place] | Phone: | | | | | | [place], | [phone] | | | | | | [place] [address] | Fax: | | | | | | Phone: | [phone] | | | | | | [phone] | | | | | | | Fax: | | | | | | | [phone] | | +--------+--------+ + + + + [...] | (Primary Dx) | | | | [facility] | [place], [place] | | | | | and Healing, | [address] | | | | | [facility] | [phone] | | | | | Floor [place], [place] | | | | | | [address] | | | | | | [phone] | | | +--------+---------+ + + + [...] Notes Kenisha Melton - 07/01/2007 5:00 PM PSTMrs. Meghan Chris Tobar - 07/01/2007 2:29 PM PSTMrs. Shefali daniels urwilfrid for her 3.5 year bariatric followup after gastric bypass surgery. She is being followe d with [facility] providers for metabolic syndrome and hypothyroidism - Dr. Meeks, emotional issue s - Dr. Lukasz Ogden, and her PCP in [place]. She has sx of stress urinary incontinence [...] treated. She would like a urology or FIRE MANAGEMENT TECHNICIAN referral as appropriate. Labs ordered. See in [...] [facility] | | | | | | [facility] | | | | | | [place], [place] [address] | | | | | | [phone] | | | | | | Sincere [...] [facility] | [address] | [place], [place] | | | UNIV PTH - INTFC | | [address] | | + + + + + [...] | pg/mL | | | | | [facility]. | | | | + + + + + + + + | Specimen | + + | | + + + + + + + | Performing | Address | City/State/Zipcode | Phone Number | | Organization | | | | + + + + + | [facility] | [address] | [place] [address] | | | LABORATORY | | | [...] change effective | | | 04/05/07 R[facility] ([facility] [address] [facility]) | | | [facility] [address] | | | [place] [address] | | + + + + + + + + | Performing | Address | City/State/Zipcode | Phone Number | | Organization | | | | + + + + + | [facility] | [address] | [place] [address] | | | LABORATORY | | | [...] change effective | | | 04/05/07 [facility] ([facility]) | | | [place] [address] [address] [facility] | | | [place] [address] | | + + + + + + + + | Performing | Address | City/State/Zipcode | Phone Number | | Organization | | | | + + + + + | [facility] | [address] | [place] [address] | | | LABORATORY | | | [...] Performed At | + + + | [address] Estimated GFR > 60 mL/min/1.73 sq m if non- | [facility] | | [address] Estimated GFR > 60 mL/min/1.73 sq m [...] | [facility][1] | [address] | [place] [address] | | | PATHOLOGY | [address] | | | + + + + + | [facility][1] | [address] | [place] [address] | | | PATHOLOGY | [address] [...] + + + + + | [facility] DEPARTMENT | [address] [facility] | [place] [address] | | | PATHOLOGY | [address] | | | + + + + + | [facility][1] | [address] [facility] | [place] [address] | | | PATHOLOGY | [address] | | | + + + + + documented in this encounter Visit Diagnoses + + | Diagnosis | + + | Status post bariatric surgery - Primary Bariatric surgery status | + + documented in this encounter"
--- OUTSIDE RECORDS SUMMARY | ~2020-02-29 | XMS | Encounter Summary ---
Demographics + + + | Address | [address] | | | [place] [address] | + + + | Home Phone [...] Providers + +------+ + | Care Superintendent Refuse Disposal Name | Role | Phone | + [...] | Visit | [facility] [address] | SENIOR LICENSING MANAGER | Disc Disease; | | | | [address] | | Fibromyalgia | | | | Physician's | | | | | | Pavilion, 4th Floor | | | | | | [place], [place] | | | | | | [address] | | | | | | [phone] | | | +--------+---------+ + + + [...] documented in this encounter Progress Notes Caitlin Rivera, JIMBO - 07/25/2008 5:59 PM PSTFormatting of this [...] the LBP is gone. Dr. Ricky smith Vincent was her surgeon. She think s a [...] 300 mg) by oral route once daily pbocaxsony-dfnxntpmthjfh-vifzrfmn (FIORICET) 50-325-40 mg Oral Tablet take 2 [...] and C5-6. documented in this en counter Miscellaneous Notes Scan - Vilma Gibbons - 07/28/2008 12:00 AM PSTAssociated Order(s): LAB REPORTS Electronic ally signed by Faculty Other at 07/25/2008 12:00 AM PSTdocumented in this encounter Plan of Treatment + + +--------+ + + | Name | Type | Priori | Associated Diagnoses | Order Schedule | | | | ty | | | + + +--------+ + + | RI INJECT TRIGGER | Procedures | Routin | [...]
--- OUTSIDE RECORDS SUMMARY | ~2020-02-29 | XMS | Encounter Summary ---
Demographics + + + | Address | [address] | | | [place] [address] | + + + | Home Phone [...] | | | | Clinical Nutrition | [place], [place] | | | | | [address] | [address] | | | | | Loop Mailcode: OPC5 | [phone] | | | | | Outpatient Clinic | | | | | | [facility] | | | | | | [place] [address] | | | | | | [phone] | | | +--------+ + + + [...] | | | SERUM | performed by [facility] | | | | | [...] [facility] | [address] | [place], [place] | | | UN[facility] P[facility] INTFC | | [address] | | + + + + + [...] + + + | [facility] | [address] | [place] [address] | | | LABORATORY | | | [...] + + + + | [facility] DEPARTMENT OF | [address] | [place] [address] | | | PATHOLOGY | [address] | | | + + + + + | [facility] | [address] | [place] [address] | | | PATHOLOGY | [address] [...] DEPARTMENT OF | [address] | [place] [address] | | | PATHOLOGY | [address] | | | + + + + + | [facility] DEPARTMENT | [address] | [place] [address] | | | PATHOLOGY | [address] | | | + + + + + AMYLASE, PLASMA (01/11/2002 3:50 PM PDT) + +--------+ + + + | Component | Value | Ref Range | Performed | Pathologist | | | | | At | Signature | + +--------+ + + + | AMYLASE,MARIZA | 34 (L) | 36 - 128 U/L | [facility] | | | SMA | | | [...] + + + + | [facility] DEPARTMENT OF | [address] | [place] [address] | | | PATHOLOGY | [address] | | | + + + + + | [facility] DEPARTMENT OF | [address] | [place] [address] | | | PATHOLOGY | [address] [...] + + + + | [facility] DEPARTMENT OF | [address] | [place] [address] | | | PATHOLOGY | [address] | | | + + + + + | [facility] DEPARTMENT OF | [address] | [place] [address] | | | PATHOLOGY | [address] | | | + + + + + documented in this encounter Visit Diagnoses Not on filedocumented in this encounter"
--- OUTSIDE RECORDS SUMMARY | ~2020-02-29 | XMS | Encounter Summary ---
Demographics + + + | Address | [address] | | | [place] [address] | + + + | Home Phone [...] Providers + +------+ + | Care Wood Carving Lathe Operator Name | Role | Phone | + +------+ + | Pedrito Gtuierrez MD | PCP | | + +------+ [...] | | | | | Procedures | [address] | | | | | | CONSULT TO | Mychal Kovacs | | | | | | NEUROLOGY | [place], [place] | | | | | | | [address] | | +--------+--------+ + + + + Reason for Visit + + + | Reason | Comments | + + + | Back pain | | + + + Encounter Details +--------+---------+ + + + | Date | Type | Department | Care Team | Description | +--------+---------+ + + + | 10/03/ | Office | [facility] Comprehensive | Miranda Lambert, | [place]; | | 2009 | Visit | Pain Center at | ANP | Fibromyalgia; LBP | | | | [facility] | | (low back pain); | | | | [address] | | Encounter for | | | | Center for Health | | Long-Term (Current) | | | | and Healing, | | Use of Opioids; | | | | | | Hypothyroidism; | | | | Floor [place], [place] | | Metabolic syndrome X | | | | [address] | | 250.80; Major | | | | [phone] | | depressive disorder, | | | [...] Schedule an appointment with Dr. Cesar SHEEHAN [facility] Neurology - If you continue to [...] Belinda Meehan is a 49 y.o. female [facility] Comprehensive Pain Center Return Visit Chief [...] drawing has be completed, which I reviewed. [facility] Brief Pain Inventory: (ten= [...] it no help 4. Dr. Ricky SHEEHAN [facility] did spine surgery last seen [...] 08/2007 right knee Hx lumbar fusion 05/2008 [id number] with bone spur removals Hx appendectomy Hx cholecystectomy Hx section Hx hysterectomy Gastric bypass C. Deveney wt 278 01/18 Paniculectomy Family History Problem Relation Cancer Mother Heart Father Additional Family History Father Migraine Additional Family History Mother Migraine Taniya Guerrero MD [facility] Neurology 2008 evaluation of migraines: Impression: Belinda [...] names of 3 headache specialists in [place]- Dr. Koby García, Dr. Dakota Sweet and [...] neurologist Dr. Taniya Guerrero here at [facility] at that time headaches were due to medication rebound with correction use of opioids and m igraine abortive [...] and there is no evidence to support correction benefit of opioids for this pa in [...] to schedule a follow up appointment with [facility] neurologists Dr. Guerrero, for falls workup. [...] to taper off gabapentin 2. Order for [facility] neurology Dr. Taniya Guerrero if falls [...] [facility] Mail code CH 4P [place] [facility] and [address] [address] DarrenAilyn cabello Malissa - 1:03 [...] - 10/08/2009 7:40 AM PDT can - Edwige, Faculty - 10/08/2009 7:35 AM PDT documented [...]
--- OUTSIDE RECORDS SUMMARY | ~2020-02-29 | XMS | Encounter Summary ---
Demographics + + + | Address | [address] | | | [place] [address] | + + + | Home Phone [...] Providers + +------+ + | Care Diamond Wheel Molder Name | Role | Phone | + +------+ + | Pedrito Gutierrez MD | PCP | | + +------+ + Reason for Visit + +--------+ + | Reason | Onset | Comments | | | Date | | + +--------+ + | Follow-up encounter | 08/27/ | | | | 2006 | | + +--------+ + Encounter Details +--------+ + + + + | Date | Type | Department | Care Team | Description | +--------+ + + + + | 08/27/ | Telephone | [facility] | Nathalia Arora | Follow-up encounter | | 2006 | | Pain Center at | [address] | | | | | [facility] | [address] [place], | | | | | [address] [place] | [place] [address] | | | | | [facility] | | | | | | and Healing, | | | | | | [facility] | | | | | | Floor [place], [place] | | | | | | [address] | | | | | | [phone] | | | +--------+ + + + [...] this encounter Miscellaneous Notes Telephone Encounter - Valencia Trinidad - 08/27/2006 9:36 AM Gini called to advise daryn eduardo at a rest area yesterday she got out of the car "and my knees were like jello and went o ut from under me." Today she c/o new pain to her right ankle and shoulder. I advised her t o contact her PCP to discuss sudden weakness to lower extremities bilaterally and to evaluat e her for possible new injuries. She agreed and will contact her PCP today. documented in this encounter Plan of Treatment Not on filedocumented as of this encounter Visit Diagnoses Not on filedocumented in this encounter
--- OUTSIDE RECORDS SUMMARY | ~2020-02-29 | XMS | Encounter Summary ---
Demographics + + + | Address | [address] | | | [place] [address] | + + + | Home Phone [...] Team Providers + +------+ + | Care Derrick Car Operator Name | Role | Phone | + +------+ + | Petrona Thapa | PCP | | | MD | | | + +------+ + Reason for Visit + +--------+ + | Reason | Onset | Comments | | | Date | | + +--------+ + | Immunizations | 07/20/ | | | | 2018 | | + +--------+ + Encounter Details +--------+ + + + + | Date | Type | Department | Care Team | Description | +--------+ + + + + | 07/20/ | Telephone | [facility] | Alanis, | Immunizations | | 2018 | | MEDICINE [address] [place] [address] | MD Petrona | | | | | [place], | [address] [place] [address] [place] | | | | | [place] [address] | [place] [address] | | | | | [phone] | [phone] | | | | | | | [...] Telephone Encounter - Maggie Montoya LPN - 07/23/2018 3:02 PM PSTPatient notified of co mments/recommendations. Patient requesting dexascan results to be done at [facility], referral submitted Telephone Encounter - Petrona Thapa MD - 07/23/2018 9:11 AM PSTLast bone den sity showed osteopenia. Before continuing with Reclast infusions, I think it would be benef icial to get an updated bone density test to see where she is at and whether she needs thera py or not. I have ordered a bone density test for her. elephone Encounter - Maggie Montoya LPN - 07/22/2018 2:0 2 PM PSTReport placed on desk 2: 03 PM PSTTelephone Encounter - Petrona Thapa MD - 07/21/2018 8:40 AM PSTI'm trying to locate her last bone density scan from [facility] but I don't see it, other than a mention it was done in 2016. See if you can get that. Also, if that was the last DEX A, she will need another one now, to assess response to tx, before continuing w Reclast. Let me know if I need to order one.Electronically signed by Petrona Thapa MD at 0 07/21/2018 8:41 AM PSTTelephone Encounter - Bob Melgar - 07/21/2018 8:32 AM PST Patient called states she would like a return phone call regarding message. Please call her back at [phone]. P STTelephone Encounter - Maggie Montoya LPN - 07/20/2018 4:05 PM PSTPatient requesting order for infusion center for Reclast please advise elephone Encounter - Mary Kay Kuo - 07/20/2018 11:45 AM PSTPati ent called and is wanting to know if nurse can schedule her injection that is due in August. Please advise. elephone Encounter - Sia Bai - 07/20/2018 9:49 AM PSTPatient calling in to talk with nurse ramy nuno a osteoporosis injection, patient can be reached at [phone] signed by Sia Bai at 07/20/2018 9:51 AM PSTdocumented in this encounter Plan of Treatment +--------+---------+ + + + | Date | Type | Specialty | Care Team | Description | +--------+---------+ + + + | 05/17/ | Office | Internal Medicine | Alanis, | | | 2019 | Visit | | MD Petrona | | | | | | [address] | | | | | | [place] [address] | | | | | | [phone] | | | | | | | [...]
--- OUTSIDE RECORDS SUMMARY | ~2020-02-29 | XMS | Encounter Summary ---
Demographics + + + | Address | [address] | | | [place] [address] | + + + | Home Phone [...] Team Providers + +------+ + | Care Streetcar Motorman Name | Role | Phone | + [...] + + | 09/02/ | Telephone | [facility] | Alanis, | Paperwork | | 2017 | | MEDICINE [address] [place] [address] | MD Petrona | | | | | [place], | [address] [facility] | | | | | [place] [address] | [place] [address] | | | | | [phone] | [phone] | | | | | | | [...] 09/15/2017 12:09 PM PDTLetter faxed to requested salud dwyer. Confirmation received. elephone Maggie Godinez LPN - 09/15/2017 11:47 AM PDTPatient notified letter printed and will be faxed to requested number elephone Encounter - Petrona Thapa MD - 09/15/2017 11 :00 AM PDTLetter printed. Electronically signed by Petrona Thapa MD at 018 11:01 AM PDTTelephone Maggie Godinez LPN - 09/07/2017 3:[address] that she needs a note stating that she was here for an appt on 08/18/17. For reimbersmaryn t for mileage/fuel. Will need to fax it to [phone] signed by Maggie Montoya LPN at 09/07/2017 3:45 PM PDTTelephone Encounter - Susie Gilmore - 09/04/2017 2:44 PM PDT1. Patient called again to ask for a letter stating she was in on the for fuel re imbursement. 2. Please fax a small note with her information and appointment date to [phone]. 3. Call patient to notify upon completion. [phone] elephone Encounter - Malissa Redd - 09/03/2017 2:25 PM PDTPatient called to check on status. Pl ease return her call [phone] signed by Malissa Redd at 09/03/2017 2:26 [...] | | | | [address] [place] | | | | | | [place] [address] | | | | | | [phone] | | | | | | | | +--------+---------+ + + + documented as of this encounter Visit Diagnoses Not on filedocumented in this encounter"
--- OUTSIDE RECORDS SUMMARY | ~2020-02-29 | XMS | Encounter Summary ---
Demographics + + + | Address | [address] | | | [place] [address] | + + + | Home Phone [...] Team Providers + +------+ + | Care Weed Inspector Name | Role | Phone | + +------+ + | Petrona Thapa | PCP | | | MD | | | + +------+ + Encounter Details +--------+ + + + + | Date | Type | Department | Care Team | Description | +--------+ + + + + | 12/07/ | Abstract | [facility] | Alanis, | | | 2017 | | MEDICINE [address] | MD Petrona | | | | | [place], | [address] [facility] | | | | | [place] [address] | [place] [address] | | | | | [phone] | [phone] | | | | | | | [...] | | | | | [place] [address] | | | | | | [phone] | | | | | | | [...]
--- OUTSIDE RECORDS SUMMARY | ~2020-02-29 | XMS | Encounter Summary ---
Demographics + + + | Address | [address] | | | [place] [address] | + + + | Home Phone [...] as of this encounter Progress Notes Interface, Auto Tester In - 01/11/2005 5:17 PM [facility] [address] [place], [place] [id number] or June 26, 2003 Pedrito Gutierrez M.D. [address] [place] [address] RE: BELINDA MEEHAN MR #: [id number] Dear Dr. Gutierrez: I had the pleasure of seeing your patient, Ms. Belinda Meehan, today in the [facility] Division of Rheumatology Clinic. She [...] Sincerely, Sesar Nash M.D. NURIA / SHARIF [id number] / [id number] / [id number] / [id number] cc: Kelley Alegre [address] [place] [address] FAX: [phone] signed by Interface, Auto Tester In at 01/11/2005 5:17 PM PDTdocumented in this encounter Plan of Treatment Not on filedocumented as of this encounter Visit Diagnoses Not on filedocumented in this encounter"
--- OUTSIDE RECORDS SUMMARY | ~2020-02-29 | XMS | Encounter Summary ---
Demographics + + + | Address | [address] | | | [place] [address] | + + + | Home Phone [...] Providers + +------+ + | Care Workforce Development Specialist Name | Role | Phone [...] | | | | | | | [place] for | | | | | | | Health and | | | | | | | Healing, | | | | | | | [address] | | | | | | | [place], [place] | | | | | | | [address] | | | | | | | Phone: | | | | | | | [phone] | | | | | | | Fax: | | | | | | | [phone] | +--------+--------+ + + + + Encounter Details +--------+---------+ + + + | Date | Type | Department | Care Team | Description | +--------+---------+ + + + | 01/10/ | Office | [facility] | Chris Padgett, | Status post | | 2009 | Visit | Center [address] | [address] [facility] | bariatric surgery | | | | Ave Mailcode: CH4S | [address] | (Primary Dx) | | | | [facility] | [place], [place] | | | | | and [place], | [address] | | | | | Building [address]th | [phone] | | | | | Floor [place], [place] | | | | | | [address] | | | | | | [phone] | | | +--------+---------+ + + + [...] and I asked her to see a marketing traffic coordinator where she lives. Will obtain CBC and CMP today. Est pt 15 min reviewing problems and obtaining diet information. documented in this encounter Miscellaneous Notes Scan - Other, Faculty - 01/14/2010 12:00 AM PDT can - Other, Faculty - 01/10/2010 2:12 PM PDT can - Unknown - 010 12:00 AM PDT Scan - Other, Faculty - 08/16/2009 12:00 AM PST documented in this encou nter Plan of Treatment Not on filedocumented as of this encounter Visit Diagnoses + + | Diagnosis | + + | Status post bariatric surgery - Primary Bariatric surgery status | + + documented in this encounter
--- OUTSIDE RECORDS SUMMARY | ~2020-02-29 | XMS | Encounter Summary ---
Demographics + + + | Address | [address] | | | [place] [address] | + + + | Home Phone [...] + +------+ + | Care Plant And Maintenance Technician Name | Role | Phone [...] | | | | | Encounter | [place], [place] | [place] | | | | | for | [address] | [address] | | | | | long-term | | Phone: | | | | | (current) | | [phone] | | | | | use of other | | Fax: | | | | | medications | | [phone] | | | | | LBP (low [...] 04/21/ | Office | [facility] | Lukasz Charles, | Major depressive | | 2013 | Visit | [address] | PhD [address] | disorder, recurrent | | | | Center [facility] | [place], [place] | episode, moderate | | | | and Healing, | [address] | ([facility]) (Primary Dx); | | | | | [phone] | LBP (low back pain); | | | | Floor [place], [place] | | Fibromyalgia; | | | | [address] | | Adjustment disorder | | | | [phone] | | with anxiety | +--------+---------+ + [...] provider who recommended that she return to [facility] for pain assessment and treatment. She reported [...] some changes in her living situation. Diagnosis: [place] I: 1. (296.32) Major depressive disorder, recurrent, moderate. 2. (309.24) Adjustment disorder with anxiety. [place] II: Deferred [place] III: abdominal pain, migraine headache, low back pain, fibromyalgia. [place] IV: low finances [place] V: GAF 55-60 Plan: return in 1 month. Check mood, pain, activity. Ask about visiting with Dr. Montero, spinal cord stimulator, any changes at home. Continue cognitive/behavioral therapy. Total time spent with patient was approximately 50 minutes. LUKASZ CHARLES PHD [facility] [address] [place] [address] And [facility], [address] [place] [address] documented in this en counter Plan of [...]
--- OUTSIDE RECORDS SUMMARY | ~2020-02-29 | XMS | Encounter Summary ---
Demographics + + + | Address | [address] | | | [place] [address] | + + + | Home Phone [...] Providers + +------+ + | Care Business Management Analyst Name | Role | Phone [...] + | 02/17/ | Clinical | [facility] | Alanis, | Vitamin B12 | | 2017 | Support | MEDICINE [address] [place] [address] | MD Petrona | deficiency | | | | [place], | [address] [place] [address] | | | | | [place] [address] | [place] [address] | | | | | [phone] | [phone] | | | | | | | [...] | | | | | [place] [address] | | | | | | [phone] | | | | | | | [...] | | First dose on [facility] 10/15/17 at 1215 | | | | [...]
--- OUTSIDE RECORDS SUMMARY | ~2020-02-29 | XMS | Encounter Summary ---
Demographics + + + | Address | [address] | | | [place] [address] | + + + | Home Phone [...] Providers + +------+ + | Care Kiln Tester Name | Role | Phone | [...] + + | 12/10/ | Office | [facility] | Emmy-Kamlesh, | Elevated liver | | 2018 | Visit | MEDICINE [address] | MD Petrona | enzymes (Primary | | | | [address] [place], | [address] [place] | Dx); Limb cramps; | | | | [place] [address] | [place] [address] | Physical | | | | [phone] | [phone] | deconditioning; | | | | | [...] is interested in doing physical therapy in [place], pool therapy has helped in the pas [...] (See Comments) Confused and questionable for seizures Ownlojnfuv-Renh-Zvwmymve Cephalexin Hives Duloxetine Migraines and nausea Ketorolac Hives Morphine Swelling Ropinirole Hcl Hives Tramadol Hcl Nausea Only Lvnjjfdgfo-Atci-Kgjuiuhz Hives and Rash Ciprofloxacin Hives and Rash [...] Note: Parts of this documentwere created using [employer] speech recognition software. As a r esult, [...] | | | | [address] [place] | | | | | | [place] [address] | | | | | | [phone] | | | | | | | [...] | [address] | [address] | [place] | [phone] | | [facility] | | [address] | | | - LABORATORY | | | | + + + + + Magnesium (12/10/2017 10:30 AM PDT) + +-------+ + + + | Component | Value | Ref Range | Performed | Pathologist | | | | | At | Signature | + +-------+ + + + | Magnesium | 2.4 | 1.8 - 2.5 mg/dL | [facility] | | | | [...] [address] | [place] | [phone] | | [facility] | | [address] | | | - LABORATORY | | [...] | | | | > 0.9 The [facility] | | | | | | recommends that a | | | | | | positive HCV antibody | | | | | | result be followed up | | | | | | with a HCV Nucleic Acid | | | | | | Amplification test | | | | | | ([id number]). | | | | + + + + + + + + | Specimen | + + | Blood | + + + + + | Narrative | Performed At | + + + | Performed at: 01 - [facility] [place] [address], | REFERENCE LAB | | [place], [place] [address] Digital Sales Assistant: Bandar Gna MD, Phone: | MARIANNA - MANUELA | | [phone] | | + + + + + + + + | Performing | Address | City/State/Zipcode | Phone Number | | Organization | | | | + + + + + | REFERENCE LAB | [address] | [place], [place] | [phone] | | [facility] | [facility] | [address] | | + + + + + [...] | cyanocobalamin (VITAMIN B-12) | Given | 09/03/20 | 1,000 | | Deltoid- | | injection 1,000 mcg 1,000 mcg, | | 20 11:24 | mcg | | Left | | Intramuscular, EVERY 30 DAYS, | | AM PDT | | | | | First dose on [facility] 10/15/17 at 1215 | | | [...]
--- OUTSIDE RECORDS SUMMARY | ~2020-02-29 | XMS | Encounter Summary ---
Demographics + + + | Address | [address] | | | [place] [address] | + + + | Home Phone [...] Team Providers + +------+ + | Care Road Train Driver Name | Role | Phone | [...]
--- OUTSIDE RECORDS SUMMARY | ~2020-02-29 | XMS | Encounter Summary ---
Demographics + + + | Address | [address] | | | [place] [address] | + + + | Home Phone [...] Providers + +------+ + | Care Chief Ii Dispatcher Name | Role | Phone | [...] + + | 02/01/ | Telephone | [facility] | Alanis, | Other (B12 shot) | | 2017 | | MEDICINE [address] | MD Petrona | | | | | [place], | [address] | | | | | [place] [address] | [place] [address] | | | | | [phone] | [phone] | | | | | | | [...] Encounter - Jan, Maggie Leonardo LPN - 02/03/2018 1:37 PM PDTPatient notified [...] | | | | | [place] [address] | | | | | | [phone] | | | | | | | | +--------+---------+ + + + documented as of this encounter Visit Diagnoses Not on filedocumented in this encounter"
--- OUTSIDE RECORDS SUMMARY | ~2020-02-29 | XMS | Encounter Summary ---
Demographics + + + | Address | [address] | | | [place] [address] | + + + | Home Phone [...] Providers + +------+ + | Care Licensed And Certified Midwife Name | Role | Phone | [...] + + | 07/28/ | Telephone | [facility] | Alanis, | Appointment | | 2017 | | MEDICINE [address] [place] [address] | MD Petrona | | | | | [place], | [address] [facility] | | | | | [place] [address] | [place] [address] | | | | | [phone] | [phone] | | | | | | | [...] Genao. I have advised that the consult [facility] physiatry would be for possible spinal injections [...] keep her appointment with Dr. Ulysses Genao [facility]. P M PSTdocumented in this encounter [...] | | | | | [place] [address] | | | | | | [phone] | | | | | | | | +--------+---------+ + + + documented as of this encounter Visit Diagnoses Not on filedocumented in this encounter"
--- OUTSIDE RECORDS SUMMARY | ~2020-02-29 | XMS | Encounter Summary ---
Demographics + + + | Address | [address] | | | [place] [address] | + + + | Home Phone [...] Providers + +------+ + | Care Supervisor Labor Gang Name | Role | Phone | + [...] | | | Clinical Nutrition | [place], [place] | | | | | [address] | [address] | | | | | Loop Mailcode: OPC5 | [phone] | | | | | Outpatient Clinic | | | | | | [facility] | | | | | | [place] [address] | | | | | | [phone] | | | +--------+ + + + [...] + + + + + | [facility] | [address] | [place] [address] | | | LABORATORY | | | [...] | uIU/ml | | | | | [facility] | | | | | | Laboratories. | | | | + + + + + + + + | Specimen | + + | | + + + + + + + | Performing | Address | City/State/Zipcode | Phone Number | | Organization | | | | + + + + + | [facility] | [address] | [place] [address] | | | LABORATORY | | | [...] OF | [address] | [place] [address] | | | PATHOLOGY | [address] | | | + + + + + | [facility] | [address] | [place] [address] | | | PATHOLOGY | [address] | | | + + + + + documented in this encounter Visit Diagnoses Not on filedocumented in this encounter"
--- OUTSIDE RECORDS SUMMARY | ~2020-02-29 | XMS | Encounter Summary ---
Demographics + + + | Address | [address] | | | [place] [address] | + + + | Home Phone [...] Providers + +------+ + | Care Tar Heat Exchanger Cleaner Name | Role | Phone | [...] + + | 10/07/ | Telephone | [facility] | Alanis, | Hip Pain | | 2017 | | MEDICINE [address] | MD Petrona | | | | | [place], | [address] [facility] | | | | | [place] [address] | [place] [address] | | | | | [phone] | [phone] | | | | | | | [...] PDTPatient lives approx an h our from [facility]. Instructed to go to an urgent care [...] would like an x-ray to be ordered, plesherry e advise. documented in thi s encounter Plan [...] | | | | | [place] [address] | | | | | | [phone] | | | | | | | | +--------+---------+ + + + documented as of this encounter Visit Diagnoses Not on filedocumented in this encounter"
--- OUTSIDE RECORDS SUMMARY | ~2020-02-29 | XMS | Encounter Summary ---
Demographics + + + | Address | [address] | | | [place] [address] | + + + | Home Phone [...] Team Providers + +------+ + | Care Polymer Tester Name | Role | Phone | [...] [address] | | | | | [place], [place] | [place], [place] | | | | | [address] | [address] | | | | | [phone] | [phone] | | | | | | | [...]
--- OUTSIDE RECORDS SUMMARY | ~2020-02-29 | XMS | Encounter Summary ---
Demographics + + + | Address | [address] | | | [place] [address] | + + + | Home Phone [...] Team Providers + +------+ + | Care Umbrella Cutter Name | Role | Phone | + +------+ + | Sulaiman Carrera MD | PCP | | + +------+ + Encounter Details +--------+ + + + + | Date | Type | Department | Care Team | Description | +--------+ + + + + | 07/24/ | Ancillary | Registration [address] | [place], | | | 2006 | Registratio | [facility] | MD Lukasz [address] | | | [address] | [address] Mailcode: RPB07 | [address], | | | | | [place], [place] | [place] [address] | | | | | [address] | [phone] | | | | | [phone] | | | +--------+ + + + [...] | + + + + + | [facility] | [address] | [place] [address] | | | LABORATORY | | | [...] DEPARTMENT OF | [address] | [place] [address] | | | PATHOLOGY | [address] | | | + + + + + | [facility] DEPARTMENT OF | [address] | [place] [address] | | | PATHOLOGY | [address] [...] DEPARTMENT OF | [address] | [place] [address] | | | PATHOLOGY | [address] | | | + + + + + | [facility] DEPARTMENT OF | [address] | [place] [address] | | | PATHOLOGY | [address] [...] | [facility] | [address] [facility] | [place] [address] | | | PATHOLOGY | [address] | | | + + + + + | [facility] | [address] [facility] | [place] [address] | | | PATHOLOGY | [address] [...] [facility] DEPARTMENT OF | [address] | [place] [address] | | | PATHOLOGY | [address] | | | + + + + + | [facility] DEPARTMENT OF | [address] [facility] | [place] [address] | | | PATHOLOGY | [address] [...] + | [facility] | [address] [facility] | [place] [address] | | | PATHOLOGY | [address] | | | + + + + + | [facility] DEPARTMENT OF | [address] [facility] | [place] [address] | | | PATHOLOGY | [address] | | | + + + + + documented in this encounter Visit Diagnoses Not on filedocumented in this encounter"
--- OUTSIDE RECORDS SUMMARY | ~2020-02-29 | XMS | Encounter Summary ---
Demographics + + + | Address | [address] | | | [place] [address] | + + + | Home Phone [...] Providers + +------+ + | Care Independent Jeweler Name | Role | Phone | [...] + | 05/03/ | Telephone | [facility] | Alanis, | Medication Prior | | 2017 | | MEDICINE [address] | MD Petrona | Authorization | | | | [place], | [address] [place] | (Sumatriptan) | | | | [place] [address] | [place] [address] | | | | | [phone] | [phone] | | | | | | | [...] 05/03/2018 12:24 PM PSTReceived prior auth request [facility] [address]. No PA is needed on medication, pharmacy already notified. Please see referral#[id number] on details if needed. Closed encounter today. documented in this encounter Plan of Treatment +--------+---------+ + + + | Date | Type | Specialty | Care Team | Description | +--------+---------+ + + + | 05/17/ | Office | Internal Medicine | Alanis, | | | 2019 | Visit | | MD Petrona | | | | | | [address] [place] [address] [place] | | | | | | [place] [address] | | | | | | [phone] | | | | | | | | +--------+---------+ + + + documented as of this encounter Visit Diagnoses Not on filedocumented in this encounter"
--- OUTSIDE RECORDS SUMMARY | ~2020-02-29 | XMS | Encounter Summary ---
Demographics + + + | Address | [address] | | | [place] [address] | + + + | Home Phone [...] Team Providers + +------+ + | Care Single Corner Cutter Name | Role | Phone | + +------+ + | Pedrito Gutierrez MD | PCP | | + +------+ + Encounter Details +--------+ + + + + | Date | Type | Department | Care Team | Description | +--------+ + + + + | 03/26/ | Telephone | [facility] Division of | Carlos Arreola, | | | 2005 | | Gastroenterology/Hep | [address] | | | | | atology [address] | [address] | | | | | [address] | [place] [address] | | | | | Mailcode: PV310 | [phone] | | | | | Physician's [address] | | | | | | [address] | | | | | | [place], [place] | | | | | | [address] | | | | | | [phone] | | | +--------+ + + + [...] 03/25/2006 at 2:39 PM Regarding: PROCEDURE Contact: [facility] [phone] 1:34 PM 03/25/06. "I SAW DR. ARREOLA ON THE OF LAST MONTH A [place] I AM SCHEDULE FOR PROC NEXT WEEK, IF SOMEONE COULD CALL ME BACK." documented in this encoun ter Plan of Treatment Not on filedocumented as of this encounter Visit Diagnoses Not on filedocumented in this encounter
--- OUTSIDE RECORDS SUMMARY | ~2020-02-29 | XMS | Encounter Summary ---
Demographics + + + | Address | [address] | | | [place] [address] | + + + | Home Phone [...] Team Providers + +------+ + | Care Photogravure Press Operator Name | Role | Phone | + +------+ + | Petrona Thapa | PCP | | | MD | | | + +------+ + Encounter Details +--------+---------+ + + + | Date | Type | Department | Care Team | Description | +--------+---------+ + + + | 12/20/ | Office | [facility] | Elisabet Munson MS | Sensorineural | | 2019 | Visit | AUDIOLOGY AND | [facility] [address] | hearing loss (SNHL) | | | | [facility] | [address] | of both ears | | | | [address] | [place] [address] | (Primary Dx); | | | | [address] | [phone] | Dizziness and | | | | [place] [address] | | giddiness | | | | [phone] | | | +--------+---------+ + + + [...] documented as of this encounter Progress Notes Ceasar Munsonrafa CCC-A - 12/20/2018 9:30 AM PDTReferring Provider: [...] | | | | | [place] [id number] | | | | | | [phone] | | | | | | | [...]
--- OUTSIDE RECORDS SUMMARY | ~2020-02-29 | XMS | Encounter Summary ---
Demographics + + + | Address | [address] | | | [place] [address] | + + + | Home Phone [...] Providers + +------+ + | Care Supervisor Grinding Name | Role | Phone | + [...] | | | [facility] | [place], [place] | | | | | [address] | [address] | | | | | [address] | [phone] | | | | | Physician's [address]armila | | | | | | Physician's | | | | | | [place], | | | | | | [place] [address] | | | | | | [phone] | | | +--------+---------+ + + + [...]
--- OUTSIDE RECORDS SUMMARY | ~2020-02-29 | XMS | Encounter Summary ---
Demographics + + + | Address | [address] | | | [place] [address] | + + + | Home Phone [...] Providers + +------+ + | Care Assembly Loader Name | Role | Phone | [...] RPB07 | | | | | | [place], [place] | | | | | | [address] | | | | | | [phone] | | | +--------+ + + + [...]
--- OUTSIDE RECORDS SUMMARY | ~2020-02-29 | XMS | Encounter Summary ---
Demographics + + + | Address | [address] | | | [place] [address] | + + + | Home Phone [...] Providers + +------+ + | Care Shovel Operator Name | Role | Phone [...] Pavilion | | | | | | [place], [place] | | | | | | [address] | | | | | | [phone] | | | +--------+ + + + [...] PDTPt info rmed. Pathology results faxed at [phone] (Dr. Vasquez); ph # [phone] and at [phone] (Dr. Gutierrez); ph #[phone] signed by Lisa Wilder at 03/14/2009 4:24 [...]
--- OUTSIDE RECORDS SUMMARY | ~2020-02-29 | XMS | Encounter Summary ---
Demographics + + + | Address | [address] | | | [place] [address] | + + + | Home Phone [...] Team Providers + +------+ + | Care Make Up Artist Name | Role | Phone | [...] of this encounter Progress Notes Interface, Senior Systems Developer In - 10/15/2005 2:06 AM PDT [id number] GEOVANNI Barnes Clinic Date: 09/18/2005 Clinic: Ms. [...] in about a month. Chris Padgett M.D. ROSA / [id number] / [id number] / [id number] / [id number] Electronically signed by Chris Padgett 10-14-2005 08:13:46 AM documented i n this encounter Plan of Treatment Not on filedocumented as of this encounter Visit Diagnoses Not on filedocumented in this encounter"
--- OUTSIDE RECORDS SUMMARY | ~2020-02-29 | XMS | Encounter Summary ---
Demographics + + + | Address | [address] | | | [place] [address] | + + + | Home Phone [...] Providers + +------+ + | Care Packaging Design Engineer Name | Role | Phone [...] + | 06/14/ | Refill | [facility] | Alanis, | Medication Refill | | 2018 | | [facility] [address] | MD [place]a | | | | | [place], | [address] [place] | | | | | [place] [address] | [place] [address] | | | | | [phone] | [phone] | | | | | | | [...] Encounter - Maggie Montoya LPN - 06/14/2019 3:38 PM PSTLast appt: 05/16/19 Next appt: 08/15/19 documented in this enc ounter Plan of [...] | | | | | [place] [address] | | | | | | [phone] | | | | | | | | +--------+---------+ + + + documented as of this encounter Visit Diagnoses Not on filedocumented in this encounter"
--- OUTSIDE RECORDS SUMMARY | ~2020-02-29 | XMS | Encounter Summary ---
Demographics + + + | Address | [address] | | | [place] [address] | + + + | Home Phone [...] + + | 05/04/ | Refill | [facility] | Alanis, | Medication Refill | | 2016 | | MEDICINE [address] | MD Petrona | | | | | [place], | [address] [place] | | | | | [place] [address] | [place] [address] | | | | | [phone] | [phone] | | | | | | | [...] | | | | | [place] [address] | | | | | | [phone] | | | | | | | | +--------+---------+ + + + documented as of this encounter Visit Diagnoses Not on filedocumented in this encounter"
--- OUTSIDE RECORDS SUMMARY | ~2020-02-29 | XMS | Encounter Summary ---
Demographics + + + | Address | [address] | | | [place] [address] | + + + | Home Phone [...] Providers + +------+ + | Care Freight Checker Name | Role | Phone | + +------+ + | Pedrito Gutierrez MD | PCP | | + +------+ + Reason for Visit +--------+--------+ + | Reason | Onset | Comments | | | Date | | +--------+--------+ + | Other | 12/09/ | pt having surg next month | | | 2007 | | +--------+--------+ [...] [address] | | | | | [facility] | [place], [place] | | | | | and [place], | [address] | | | | | [place] [address] | [phone] | | | | | [place], [place] | | | | | | [address] | | | | | | [phone] | | | +--------+ + + + [...] Notes Telephone Encounter - Kenisha Melton - 12/13/2007 5:53 PM Fabian will bring her walker for her upcoming surgery, more in line with the Physical therapist recommendation, as the cr utches would be more unstable. elephone Encounter - Adriana Macedo - 12/13/2007 12:28 PM Gini lipscomb lling to follow up with a nurse about her message from Saturday 12/09. Pain Scale: n/a Recent Surgery or Procedure no Pharmacy: Pharmacy Preferences: [facility] [address] [place] [address] 9AM-9PM MON-FRI / 9AM-7PM SAT / 10AM-6PM SUN elephone Encounter - Inga Bourgeois - 12/10/2007 9:18 AM PDTPt is having surgery in December with Dr Padgett and i s wondering if she should bring crutches or her walker she will be in house 3-4 daysElectron ically signed by Inga Bourgeois at 12/10/2007 9:18 AM PDTdocumented in this encounter Plan of Treatment Not on filedocumented as of this encounter Visit Diagnoses Not on filedocumented in this encounter"
--- OUTSIDE RECORDS SUMMARY | ~2020-02-29 | XMS | Encounter Summary ---
Demographics + + + | Address | [address] | | | [place] [address] | + + + | Home Phone [...] Team Providers + +------+ + | Care Shanker Out Name | Role | Phone | + [...] | | | | Clinical Nutrition | [place], [place] | | | | | [address] | [address] | | | | | Loop Mailcode: OPC5 | [phone] | | | | | Outpatient Clinic | | | | | | [facility] | | | | | | [place] [address] | | | | | | [phone] | | | +--------+ + + + [...] | | | performed by [facility] | uIU/aida | | | | | [facility] | | | | | | Laboratories. | | | | + + + + + + + + | Specimen | + + | | + + + + + + + | Performing | Address | City/State/Zipcode | Phone Number | | Organization | | | | + + + + + | [facility] | [address] | [place] [address] | | | LABORATORY | | | [...] pg/mL | | | | | [facility] | | | | | | Laboratory. | | | | + + + + + + + + | Specimen | + + | | + + + + + + + | Performing | Address | City/State/Zipcode | Phone Number | | Organization | | | | + + + + + | [facility] | [address] | [place] [address] | | | LABORATORY | | | [...] [facility] DEPARTMENT OF | [address] | [place] [address] | | | PATHOLOGY | [address] | | | + + + + + | [facility] DEPARTMENT OF | [address] | [place] [address] | | | PATHOLOGY | [address] [...] | + + + + + | [facility] DEPARTMENT OF | [address] | [place] [address] | | | PATHOLOGY | [address] | | | + + + + + | [facility] | [address] | [place] [address] | | | PATHOLOGY | [address] | | | + + + + + documented in this encounter Visit Diagnoses Not on filedocumented in this encounter"
--- OUTSIDE RECORDS SUMMARY | ~2020-02-29 | XMS | Encounter Summary ---
Demographics + + + | Address | [address] | | | [place] [address] | + + + | Home Phone [...] Team Providers + +------+ + | Care Taco Maker Name | Role | Phone | [...] Rd | | | | | | [place], [place] | | | | | | [address] | | | +--------+ + + + [...]
--- OUTSIDE RECORDS SUMMARY | ~2020-02-29 | XMS | Encounter Summary ---
Demographics + + + | Address | [address] | | | [place] [address] | + + + | Home Phone [...] Providers + +------+ + | Care Director Outcomes Name | Role | Phone | + [...] + + | 02/22/ | Refill | [facility] | Alanis, | Medication Refill | | 2017 | | MEDICINE [address] | MD Petrona | | | | | [place], | [address] [facility] | | | | | [place] [address] | [place] [address] | | | | | [phone] | [phone] | | | | | | | [...] | | | | | [place] [address] | | | | | | [phone] | | | | | | | | +--------+---------+ + + + documented as of this encounter Visit Diagnoses Not on filedocumented in this encounter"
--- OUTSIDE RECORDS SUMMARY | ~2020-02-29 | XMS | Encounter Summary ---
Demographics + + + | Address | [address] | | | [place] [address] | + + + | Home Phone [...] | + + +---------+ + | Sree Wlels | ECON | Unknown | | + + +---------+ + | Marco Antonio Wells | ECON | Unknown | | + + +---------+ + Care Team Providers + +------+ + | Care Senior Bi Developer Name | Role | Phone | + +------+ + | Pedrito Gutierrez MD | PCP | | + +------+ + Reason for Visit + +--------+ + | Reason | Onset | Comments | | | Date | | + +--------+ + | Erroneous Encounter | 04/13/ | duplicate call; see other encounter | | - Disregard | 2005 | | + +--------+ + Encounter Details +--------+ + + + + | Date | Type | Department | Care Team | Description | +--------+ + + + + | 04/09/ | Telephone | [facility] Division of | Carlos Arreola, | Erroneous Encounter | | 2005 | | Gastroenterology/Hep | [address] | - Disregard | | | | atology [address] | (duplicate call; see | | | | [address] | [place] [address] | other encounter ) | | | | Mailcode: [id number] | [phone] | | | | | [facility] | | | | | | [address] | | | | | | [place], [place] | | | | | | [address] | | | | | | [phone] | | | +--------+ + + + [...] this encounter Miscellaneous Notes Telephone Encounter - Connie German - 04/09/2006 4:32 PM PDTShe needs to know if rominaamelia shea has been sent to her PCP. She needs to know where to go from here. She will be home by 4 if you can give her a call. documented in this encoun ter Plan of Treatment Not on filedocumented as of this encounter Visit Diagnoses Not on filedocumented in this encounter"
--- OUTSIDE RECORDS SUMMARY | ~2020-02-29 | XMS | Encounter Summary ---
Demographics + + + | Address | [address] | | | [place] [address] | + + + | Home Phone [...] Team Providers + +------+ + | Care Broker Assistant Name | Role | Phone | [...] | | | | | | Floor [place], [place] | | | | | | [address] | | | | | | [phone] | | | +--------+ + + + [...] Notes Telephone Encounter - Miranda Lambert - 10/14/2006 7:32 AM [facility] [facility] Multidisciplinary Patient Care Conference Summary Report The following providers participated in Belinda Meehan's Multidisciplinary patient Care C onference discussion on 10/14/2006: Medical Provider: VIOLA Ng Physical Therapist: Nathalia Arora PT Psychologist: Lukasz Ogden, PhD Our findings and recommendations are summarized in our initial notes. Our treatment plan a t the [facility] includes: Medical: scheduled follow up 10/23/06 Physical Therapy: Schedule 2 more PT sessions on same day as Dr. Ogden if at all possible Psychology: Two appointments are scheduled with Dr Ogden. 10/28/ and 11/11 documented in this encoun ter Plan of Treatment Not on filedocumented as of this encounter Visit Diagnoses Not on filedocumented in this encounter"
--- OUTSIDE RECORDS SUMMARY | ~2020-02-29 | XMS | Encounter Summary ---
Demographics + + + | Address | [address] | | | [place] [address] | + + + | Home Phone [...] Providers + +------+ + | Care Marine Engine Driver Name | Role | Phone | + +------+ + | Pedrito Gutierrez MD | PCP | | + +------+ + Reason for Visit + +--------+ + | Reason | Onset | Comments | | | Date | | + +--------+ + | Follow-up visit | 05/28/ | | | | 2006 | | + +--------+ + Encounter Details +--------+---------+ + + + | Date | Type | Department | Care Team | Description | +--------+---------+ + + + | 05/28/ | Office | [facility] | Lukasz Charles, | Major Depressive | | 2006 | Visit | [address] | PhD [address] | Disorder, Recurrent | | | | [facility] | [place], [place] | Episode, Moderate | | | | and Healing, | [address] | ([facility]); LBP (Low Back | | | | | [phone] | Pain); 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 female with [...] she is having some acute illness. Diagnosis: [place] I: 1. (296.32) Major depressive disorder, recurrent, moderate. 2. (309.24) Adjustment disorder with anxiety. 3. (307.89) Chronic pain disorder associated with both psychological factors and a gene ral medical condition. [place] II: Deferred [place] III: abdominal pain, migraine headache, low back pain. [place] IV: low finances [place] V: GAF 55-60 Plan: Return with next medical follow-up appointment. Check mood, knee surgery, relaxation, acti vity, distraction. Continue cognitive/behavioral therapy. Total time spent with patient was approximately 45 minutes. LUKASZ CHARLES PHD [facility] [address] [place] [address] And [facility], 4th [place] [address] documented in this encount er Plan of Treatment + + +--------+ + + | Name | Type | Priori | Associated Diagnoses | Order Schedule | | | | ty | | | + + +--------+ + + | [facility], | Procedures | Routin | Major Depressive | Ordered: 05/28/2007 | | OFFICE (39-10) | | e | Disorder, Recurrent | | | | | | Episode, Moderate | | | | | | ([facility]) LBP (Low Back | | | [...]
--- OUTSIDE RECORDS SUMMARY | ~2020-02-29 | XMS | Encounter Summary ---
Demographics + + + | Address | [address] | | | [place] [address] | + + + | Home Phone [...] Providers + +------+ + | Care Egg Processing Supervisor Name | Role | Phone | [...] + + | 03/28/ | Refill | [facility] | Alanis, | Medication Refill | | 2016 | | MEDICINE [address] | MD Petrona | | | | | [place], | [address] [facility] | | | | | [place] [address] | [place] [address] | | | | | [phone] | [phone] | | | | | | | [...] | | | | | [place] [address] | | | | | | [phone] | | | | | | | | +--------+---------+ + + + documented as of this encounter Visit Diagnoses Not on filedocumented in this encounter"
--- OUTSIDE RECORDS SUMMARY | ~2020-02-29 | XMS | Encounter Summary ---
Demographics + + + | Address | [address] | | | [place] [address] | + + + | Home Phone [...] Providers + +------+ + | Care Cook Pressure Name | Role | Phone | + [...] + + | 06/11/ | Refill | [facility] | Alanis, | Medication Refill | | 2017 | | MEDICINE [address] | MD [place] | | | | | [place], | [address] [facility] | | | | | [place] [address] | [place] [address] | | | | | [phone] | [phone] | | | | | | | [...] | | | | | [place] [address] | | | | | | [phone] | | | | | | | | +--------+---------+ + + + documented as of this encounter Visit Diagnoses Not on filedocumented in this encounter"
--- OUTSIDE RECORDS SUMMARY | ~2020-02-29 | XMS | Encounter Summary ---
Demographics + + + | Address | [address] | | | [place] [address] | + + + | Home Phone [...] Providers + +------+ + | Care Barrel Maker Name | Role | Phone | [...] | Procedures | [address] | [facility] [address] | | | | | CONSULT TO | Bethanie | [address] | | | | | BONE | [place], [place] | [facility] | | | | | DENSITOMETRY | [address] | Mailcode: | | | | | | Phone: | [address] | | | | | | [phone] | [address] | | | | | | Fax: | [place], [place] | | | | | | [phone] | [address] | | | | | | | Phone: | | | | | | | [phone] | | | | | | | Fax: | | | | | | | [phone] | +--------+--------+ + + + + Encounter Details +--------+ + + + + | Date | Type | Department | Care Team | Description | +--------+ + + + + | 07/24/ | Hospital | Endocrinology, | Sjh, Bmd Dexa | | | 2008 | Encounter | Diabetes and | [address] | | | | | Clinical Nutrition | [facility], | | | | | [address] | [place] | | | | | [place] [address] Mailcode: | | | | | | [address] | | | | | | [place], [place] | | | | | | [address] | | | | | | [phone] | | | +--------+ + + + [...] Media tab. documented in this encou nter Procedure Notes Unknown - 07/24/2008 11:59 PM PSTAssociated Order(s): BONE DENSITOMETRY; BONE DENSITOMETRY documented in this encounter Miscellaneous Notes Scan - Other, Faculty - 08/23/2012 1:35 PM PDTElectronically signed by Faculty Other at 1:36 PM PDTdocumented in this encounter Plan of [...] deleted from the Results section by P Interface [[id number]] on | | | 04/17/2009 at 5:16 PM (File: [id number]) | | + + + BONE DENSITOMETRY [...]
--- OUTSIDE RECORDS SUMMARY | ~2020-02-29 | XMS | Encounter Summary ---
Demographics + + + | Address | [address] | | | [place] [address] | + + + | Home Phone [...] Team Providers + +------+ + | Care Starch Cooker Name | Role | Phone | + [...] | Osteoporosis | [address] | [facility] [address] | | | | | Procedures | Bethanie | [address] | | | | | CONSULT TO | [place] | [address]ina [address] | | | | | BONE | [address] | Mailcode: | | | | | DENSITOMETRY | Phone: | [address] Eduardo | | | | | | [phone] | [address] | | | | | | Fax: | [place], [place] | | | | | | [phone] | [address] | | | | | | | Phone: | | | | | | | [phone] | | | | | | | Fax: | | | | | | | [phone] | +--------+--------+ + + + + Reason [...] [facility] | [place], [place] | | | | | [address] | [address] | | | | | [address] | [phone] | | | | | [facility] | | | | | | Physician's | | | | | | Pavilion [place], | | | | | | [place] [address] | | | | | | [phone] | | | +--------+ + + + [...] and asked to be transferred to [facility] for scheduling. Electro nically signed by Lisa [...] the Actonel. Please call patient back at [phone] signed by Prabha García at 07/29/2007 1:55 PM PSTdocumented in this encounter Plan of Treatment Not on filedocumented as of this encounter Visit Diagnoses + + | Diagnosis | + + | Osteoporosis Osteoporosis, unspecified | + + documented in this encounter"
--- OUTSIDE RECORDS SUMMARY | ~2020-02-29 | XMS | Encounter Summary ---
Demographics + + + | Address | [address] | | | [place] [address] | + + + | Home Phone [...] Providers + +------+ + | Care Commercial Finance Analyst Name | Role | Phone | + +------+ + | Petrona Thapa | PCP | | | MD | | | + +------+ + Reason for Visit + +--------+ + | Reason | Onset | Comments | | | Date | | + +--------+ + | Grief/ Loss | 03/10/ | | | | 2018 | | + +--------+ + Encounter Details +--------+ + + + + | Date | Type | Department | Care Team | Description | +--------+ + + + + | 03/10/ | Telephone | [facility] | Alanis, | Grief/ Loss | | 2018 | | MEDICINE [address] | MD Petrona | | | | | [place], | [address] [place] | | | | | [place] [address] | [place] [address] | | | | | [phone] | [phone] | | | | | | | [...] PM PDTPatient notified of re commendations. elephon e Encounter - Petrona Thapa MD - 03/10/2019 [...] [place] | | | | | | [facility] [address] | | | | | | [place] [address] | | | | | | [phone] | | | | | | | | +--------+---------+ + + + documented as of this encounter Visit Diagnoses Not on filedocumented in this encounter"
--- OUTSIDE RECORDS SUMMARY | ~2020-02-29 | XMS | Encounter Summary ---
Demographics + + + | Address | [address] | | | [place] [address] | + + + | Home Phone [...] Team Providers + +------+ + | Care Organization Development Consultant Name | Role | Phone | + +------+ + | Pedrito Gutierrez MD | PCP | | + +------+ + Reason for Visit +--------+--------+ + | Reason | Onset | Comments | | | Date | | +--------+--------+ + | [place] | 01/05/ | | | | 2008 | | +--------+--------+ + Encounter Details +--------+ + + + + | Date | Type | Department | Care Team | Description | +--------+ + + + + | 01/05/ | Telephone | [facility]opaedics at | [place], | [place] | | 2008 | | [facility] [address] | MD | | | | | [address] | | | | | | Mailcode: [id number] | | | | | | [facility] | | | | | | [place], [place] | | | | | | [address] | | | | | | [phone] | | | +--------+ + + + [...] Notes Telephone Encounter - Lisa Wilder - 01/09/2009 4:25 PM PDTPt informed.Electronically karlos d by Lisa Wilder at 01/09/2009 4:25 PM PDTTelephone Encounter - Donna Clancy PA - 4:02 PM PDTPt needs to be evaluated. Should have local provider/PCP evaluate to d etermine what this is. elephone Encounter - Francois Nuñez - 01/05/2009 1:49 PM PDTName of caller: Belinda Reason for call: pt called states went to put bra on this morning, and noticed a soft lump on left side below scapula,pt thinks, it does hurt if there is pressure on it, which for her , means wearing a bra. Would that be able to be addressed in the same surgery? Recent Surgery: yes/no: no Date of surgery: no Procedure: no Provider: Romain Does patient have confidential voicemail?: yes/no: yes documented in this encoun ter Plan of Treatment Not on filedocumented as of this encounter Visit Diagnoses Not on filedocumented in this encounter"
--- OUTSIDE RECORDS SUMMARY | ~2020-02-29 | XMS | Encounter Summary ---
Demographics + + + | Address | [address] | | | [place] [address] | + + + | Home Phone [...] Providers + +------+ + | Care Network Architect Name | Role | Phone | + +------+ + | Petrona Thapa | PCP | | | MD | | | + +------+ + Reason for Visit + +--------+ + | Reason | Onset | Comments | | | Date | | + +--------+ + | Transfer Orders | 07/06/ | | | | 2018 | | + +--------+ + Encounter Details +--------+ + + + + | Date | Type | Department | Care Team | Description | +--------+ + + + + | 07/06/ | Telephone | [facility] | Alanis, | Transfer Orders | | 2018 | | [facility] [address] | MD Petrona | | | | | [place], | [address] [place] | | | | | [place] [address] | [place] [address] | | | | | [phone] | [phone] | | | | | | | [...] Telephone Encounter - Maggie Montoya LPN - 07/06/2018 11:18 AM PSTPatient notified referral submitted and instructed to call [facility] to schedule own appt if approved on elephone Encounter - Mary Kay Perez - 07/06/2018 9:58 AM PSTPatient called and would like the order for US teresita persaud sent to [facility] in [facility]. Please advise. documented in this encounter Plan [...] | | | | | [place] [address] | | | | | | [phone] | | | | | | | | +--------+---------+ + + + documented as of this encounter Visit Diagnoses Not on filedocumented in this encounter"
--- OUTSIDE RECORDS SUMMARY | ~2020-02-29 | XMS | Encounter Summary ---
Demographics + + + | Address | [address] | | | [place] [address] | + + + | Home Phone [...] Providers + +------+ + | Care Yarn Dyer Name | Role | Phone | + +------+ + | Petrona Thapa | PCP | | | MD | | | + +------+ + Reason for Visit + +--------+ + | Reason | Onset | Comments | | | Date | | + +--------+ + | Medication Refill | 11/16/ | | | | 2020 | | + +--------+ + Encounter Details +--------+--------+ + + + | Date | Type | Department | Care Team | Description | +--------+--------+ + + + | 11/16/ | Refill | [facility] | Alanis, | Medication Refill | | 2019 | | MEDICINE [address] | MD Petrona | | | | | [place], | [address] [place] | | | | | [place] [address] | [place] [address] | | | | | [phone] | [phone] | | | | | | | [...] | | | | | [place] [address] | | | | | | [phone] | | | | | | | | +--------+---------+ + + + documented as of this encounter Visit Diagnoses Not on filedocumented in this encounter"
--- OUTSIDE RECORDS SUMMARY | ~2020-02-29 | XMS | Encounter Summary ---
Demographics + + + | Address | [address] | | | [place] [address] | + + + | Home Phone [...] Providers + +------+ + | Care Security Consultant Name | Role | Phone | + +------+ + | Petrona Thapa | PCP | | | MD | | | + +------+ + Reason for Visit + +--------+ + | Reason | Onset | Comments | | | Date | | + +--------+ + | Lab Results | 07/19/ | | | | 2019 | | + +--------+ + Encounter Details +--------+ + + + + | Date | Type | Department | Care Team | Description | +--------+ + + + + | 07/19/ | Telephone | [facility] | Alanis, | Lab Results | | 2019 | | MEDICINE [address] | MD Petrona | | | | | [place], | [address] [place] [address] | | | | | [place] [address] | [place] [address] | | | | | [phone] | [phone] | | | | | | | [...] Notes Telephone Encounter - FreeMaggie LPN - 07/19/2019 4:56 PM PSTLeft message on patient's voicemail regarding lab results with commentElectronically signed by Maggie Montoya LPN a t 07/19/2019 4:56 PM PSTTelephone Encounter - FreeMaggie LPN - 07/19/2019 4:56 PM PST- ---- Message from Petrona Thapa MD sent at 07/18/2019 5:47 PM PST ----- Labs show normal thyroid function test.Electronically signed by Maggie Montoya LPN at 2019 4:56 PM PSTdocumented in this encounter Plan of [...] | | | | | [place] [address] | | | | | | [phone] | | | | | | | | +--------+---------+ + + + documented as of this encounter Visit Diagnoses Not on filedocumented in this encounter"
--- OUTSIDE RECORDS SUMMARY | ~2020-02-29 | XMS | Encounter Summary ---
Demographics + + + | Address | [address] | | | [place] [address] | + + + | Home Phone [...] Providers + +------+ + | Care Water Tanker Driver Name | Role | Phone | + +------+ + | Pedrito Gutierrez MD | PCP | | + +------+ + Reason for Visit + +--------+ + | Reason | Onset | Comments | | | Date | | + +--------+ + | Follow-up visit | 10/28/ | | | | 2006 | | + +--------+ + Encounter Details +--------+---------+ + + + | Date | Type | Department | Care Team | Description | +--------+---------+ + + + | 10/28/ | Office | [facility] | Lukasz Charles, | Major Depressive | | 2006 | Visit | [address] | PhD [address] | Disorder, Recurrent | | | | [facility] | [facility] [place] | Episode, Moderate | | | | and Healing, | [address] | ([facility]); Neck Pain; | | | | | [phone] | Herniated Lumbar | | | | Floor [place], [place] | | Intervertebral Disc | | | | [address] | | L4-5; 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 She has been doing cross stitch [...] She has using good self-care skills. Diagnosis: Minot I: 1. (296.32) Major depressive disorder, recurrent, moderate. 2. (309.24) Adjustment disorder with anxiety. 3. (307.89) Chronic pain disorder associated with both psychological factors and a gene ral medical condition. Minot II: Deferred Minot III: abdominal pain, migraine headache, low back pain. Minot IV: low finances Minot V: GAF 50 Plan: Return in 2 weeks. Check preparation for move and for niece's visit, results of orthopedic visit. Check pacing, relaxation, activity, distraction. Continue cognitive/behavioral the rapy. Total time spent with patient was approximately 45 minutes. LUKASZ CHARLES PHD [facility] [address] [place] [address] And [facility], [address] [place] [address] documented in this encount er Plan of Treatment + + +--------+ + + | Name | Type | Priori | Associated Diagnoses | Order Schedule | | | | ty | | | + + +--------+ + + | PA PSYCHOTHERPY, | Procedures | Routin | Major Depressive | Ordered: 10/28/2006 | | OFFICE ([id number]) | | e | Disorder, Recurrent | | | | | | Episode, Moderate | | | | | | ([facility]) Neck Pain | | | | | [...]
--- OUTSIDE RECORDS SUMMARY | ~2020-02-29 | XMS | Encounter Summary ---
Demographics + + + | Address | [address] | | | [place] [address] | + + + | Home Phone [...] Team Providers + +------+ + | Care Vulcanizing Press Operator Name | Role | Phone [...] | | | [facility] | [place], [place] | | | | | [address] | [address] | | | | | [address] | [phone] | | | | | [facility] | | | | | | Physician's | | | | | | Pav[place], | | | | | | [place] [address] | | | | | | [phone] | | | +--------+--------+ + + + [...] 10/08/2009 2:34 PM PDTLast Office Visit in [facility] was on 07/25/08 at 1:20 pm with Beto Meeks MD. Next Appointment in [facility] is on 01/29/10 at 4:00 pm with Beto Meeks MD. documented in this encounte r Plan of Treatment Not on filedocumented as of this encounter Visit Diagnoses Not on filedocumented in this encounter"
--- OUTSIDE RECORDS SUMMARY | ~2020-02-29 | XMS | Encounter Summary ---
Demographics + + + | Address | [address] | | | [place] [address] | + + + | Home Phone [...] Team Providers + +------+ + | Care International Marketing Specialist Name | Role | Phone [...] | | | Metabolism | bypass | [address] | [address] | | | | | Hypovitamino | [address], | Ave | | | | | [address] | [address] | [place], [place] | | | | | nutritional | [place] | [address] | | | | | deficiency | [address] | Phone: | | | | | Other | Phone: | [phone] | | | | | protein-jose manuel | [phone] | Fax: | | | | | nick | Fax: | [phone] | | | | | malnutrition | [phone] | | | | | | Weight | | | | | | | gain | | | | | | | Procedures | | | | | | | CONSULT TO | | | | | | | ENDO | | | | | | | [address] | | | | | | | [address] | | | +--------+--------+ + + + [...] | | | [facility] | [place], [place] | Dx); Hypothyroidism; | | | | [address] | [address] | Essential | | | | [address] | [phone] | hypertension 401.9; | | | | [facility] | | 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 I agree with toni camacho by Dr. Allred. Please see attached notes [...] 32.9 (L) RDW 11.5-15.0 % 12.4 PLATELET [id number] K/cu mm 205 IRON 30-160 ug/dL 114 [...] like the sleeve but was told by [facility] REDEVELOPMENT MANAGER that it is not an option, recommended pharmacologic weight mgmt. Gets primary care in [place], [place] (Maria Esther Cintron). Weight leveled out [...] replacement 08/2007 right knee Lumbar fusion 05/2008 L5-C8erkhgp with bone spur removals Appendectomy Cholecystectomy section [...] Hives Mainly in the legs Clindamycin Codeine Qzojowq-Uwxgmyfznx-Ofi-Caff Balance problems Fioricet W/Codeine (Uaecytnboi-Hwqfsykpfi-Nei-Cod) Keflex (Cephalexin) Morphine IM ( only in [...] TSH 1.3 2009 Vit D 47 Dexa 2008 -2 hip, -0.9 spine, -0.3 radius Assessment and Plan Obesity: s/p gastric bypass 2004 with great results 333lb -> 160, now [...] Ly Allred MD R-2, Internal Medicine Pager: [phone] documented in this enco unter Miscellaneous Notes Addendum Note - Beto Meeks MD - 12/23/2012 3:03 PM PDT Addended by: JEM SHEEHAN, MIYA B on: 12/23/2012 03:03 PM Modules accepted: Level of Service documented in this enco unter Plan of [...] | | If you are | | [facility] | | | | screening for diabetes: [...] + | [facility] | [address] | [place] [address] | | | [place] | | | [...] + + + + + | [facility] | [address] | [place] [address] | | | SERVICES, SPECIAL | PARK [...] [facility] | [address] | [place] [address] | | | SERVICES, CORE | PARK [...] + + + + + | [facility] | [address] | [place] [address] | | | SERVICES, SPECIAL | PARK [...] by | | | | | | [employer],[address] | | | | | | Abdiaziz Morales, [facility] | | | | | | [address] | | | | | | [phone].[employer]. | | | | | | Get [...] [facility] | [address] | [place], [place] | | | UN[facility] - [facility] | | [address] | | + + + + + [...] + + + + + | [facility] | [address] | [place] [address] | | | SERVICES, SPECIAL | [address] [...] + | [facility] | [address] | [place] [address] | | | [place] | | | | + + + [...]
--- OUTSIDE RECORDS SUMMARY | ~2020-02-29 | XMS | Encounter Summary ---
Demographics + + + | Address | [address] | | | [place] [address] | + + + | Home Phone [...] + | 11/24/ | Telephone | [facility] | Alanis, | Wrist Pain | | 2019 | | MEDICINE [address] | MD Petrona | | | | | [place], | [address] [facility] | | | | | [place] [address] | [place] [address] | | | | | [phone] | [phone] | | | | | | | [...] PDTPatient notified of xray order faxed to [facility]. Electronically signed by Maggie Montoya LPN [...] woeleanor d to have her come to [place] and see her and possibly have an [...] | | | | | [place] [address] | | | | | | [phone] | | | | | | | | +--------+---------+ + + + documented as of this encounter Visit Diagnoses Not on filedocumented in this encounter"
--- OUTSIDE RECORDS SUMMARY | ~2020-02-29 | XMS | Encounter Summary ---
Demographics + + + | Address | [address] | | | [place] [address] | + + + | Home Phone [...] Providers + +------+ + | Care Suction Dredge Dumping Supervisor Name | Role | Phone | [...] + + | 02/04/ | Telephone | [facility] | Emmy-Jeffti, | Other (Kidney pain ) | | 2017 | | MEDICINE [address] | MD Petrona | | | | | [place], | [address] | | | | | [place] [address] | [place] [address] | | | | | [phone] | [phone] | | | | | | | [...] o talk to primary's nurse. Please call [phone]. documented in this encounter Plan of Treatment +--------+---------+ + + + | Date | Type | Specialty | Care Team | Description | +--------+---------+ + + + | 05/17/ | Office | Internal Medicine | Alanis, | | | 2019 | Visit | | MD Petrona | | | | | | [address] [place] [address] [place] | | | | | | [place] [address] | | | | | | [phone] | | | | | | | | +--------+---------+ + + + documented as of this encounter Visit Diagnoses Not on filedocumented in this encounter"
--- OUTSIDE RECORDS SUMMARY | ~2020-02-29 | XMS | Encounter Summary ---
Demographics + + + | Address | [address] | | | [place] [address] | + + + | Home Phone [...] +------+ + | Care Associate Professor Of History Name | Role | Phone | [...] floor | | | | | | [place], [place] | | | | | | [address] | | | | | | [phone] | | | +--------+------+ + + + [...] | + + + + + | [facility] | [facility] | [place] [address] | | | PATHOLOGY | [address] | | | + + + + + | [facility] | [facility] | [place] [address] | | | PATHOLOGY | [address] [...] Performed At | + + + | [id number] Estimated GFR > 60 mL/min/1.73 sq m if non- | [facility] | | [place] [id number] Estimated GFR > 60 mL/min/1.73 sq m if | DEPARTMENT OF | | [place] GFR is estimated using the MDRD equation [...] | + + + + + | [facility] | [address] [facility] | [place] [address] | | | PATHOLOGY | [address] | | | + + + + + | [facility] | [address] [facility] | [place] [address] | | | PATHOLOGY | [address] [...] [facility] ([facility]) | | | [facility] [address] | | | [place] [address] | | + + + + + + + + | Performing | Address | City/State/Zipcode | Phone Number | | Organization | | | | + + + + + | [facility] | [address] | [place] [address] | | | LABORATORY | | | [...] [facility] ([facility]) | | | [facility] [place] [address] [address] [facility] | | | [place] [address] | | + + + + + + + + | Performing | Address | City/State/Zipcode | Phone Number | | Organization | | | | + + + + + | [facility] | [address] | [place] [address] | | | LABORATORY | | | | + + + + + documented in this encounter Visit Diagnoses + + | Diagnosis | + + | Hypothyroidism Unspecified hypothyroidism | + + | Edema | + + documented in this encounter"
--- OUTSIDE RECORDS SUMMARY | ~2020-02-29 | XMS | Encounter Summary ---
Demographics + + + | Address | [address] | | | [place] [address] | + + + | Home Phone [...] Providers + +------+ + | Care Chef Teacher Name | Role | Phone | [...] 2005 | Activity | TRACE Wilson MD [address] | | | | | [place] Mailcode: [id number] | [place], [place] | | | | | [place], [place] | [address] | | | | | [address] | [phone] | | | | | [phone] | | | +--------+ + + + [...] Loya | | | | | | Savasman, M.D./Surgical | | | | | | Pathology FellowDavid | | | | | | Jo Ann, | | | | | | M.D./PathologistT:04/06/ | | | | | | 06:[facility] I have reviewed | | | | [...] Cherry | | | | | | Shamir [...] + + | [facility] | [address] | [place] [address] | | | PATHOLOGY | [address] | | | + + + + + | [facility] | [address] | [place] [address] | | | PATHOLOGY | [address] | | | + + + + + documented in this encounter Visit Diagnoses Not on filedocumented in this encounter"
--- OUTSIDE RECORDS SUMMARY | ~2020-02-29 | XMS | Encounter Summary ---
Demographics + + + | Address | [address] | | | [place] [address] | + + + | Home Phone [...] Providers + +------+ + | Care Clinical Operations Leader Name | Role | Phone | [...] as of this encounter Progress Notes Interface, Audiometric Technician In - 01/11/2005 6:26 PM PDTClinic Date: [...] a gastric bypass surgery. Dwaine Al M.D. [facility] / [id number] / [id number] / [id number] / Tdocumented in this encounter Plan of Treatment Not on filedocumented as of this encounter Visit Diagnoses Not on filedocumented in this encounter"
--- OUTSIDE RECORDS SUMMARY | ~2020-02-29 | XMS | Encounter Summary ---
Demographics + + + | Address | [address] | | | [place] [address] | + + + | Home Phone [...] Team Providers + +------+ + | Care Burrer Marker Axle Name | Role | Phone | + [...] | | Center at [facility] [address] | FIRE FIGHTING EQUIPMENT SPECIALIST [address] | | | | | [address] [place] | [facility] 350 | | | | | for Health and | [place], [place] | | | | | [place] [address] | [address] | | | | | [place], [place] | [phone] | | | | | [address] | | | | | | [phone] | | | +--------+ + + + [...]
--- OUTSIDE RECORDS SUMMARY | ~2020-02-29 | XMS | Encounter Summary ---
Demographics + + + | Address | [address] | | | [place] [address] | + + + | Home Phone [...] Providers + +------+ + | Care Finance Admin Name | Role | Phone | [...] + + | 01/20/ | Refill | [facility] | Alanis, | Medication Refill | | 2017 | | MEDICINE [address] | MD Petrona | | | | | [place], | [address] [facility] | | | | | [place] [address] | [place] [address] | | | | | [phone] | [phone] | | | | | | | [...] AM PDTLast appt: 01/15/18 Next appt: 03/24/18 Silvia umented in this encounter Plan of Treatment +--------+---------+ + + + | Date | Type | Specialty | Care Team | Description | +--------+---------+ + + + | 05/17/ | Office | Internal Medicine | Alanis, | | | 2019 | Visit | | MD Petrona | | | | | | [address] | | | | | | [place] [address] | | | | | | [phone] | | | | | | | | +--------+---------+ + + + documented as of this encounter Visit Diagnoses Not on filedocumented in this encounter"
--- OUTSIDE RECORDS SUMMARY | ~2020-02-29 | XMS | Encounter Summary ---
Demographics + + + | Address | [address] | | | [place] [address] | + + + | Home Phone [...] Team Providers + +------+ + | Care Juke Box Servicer Name | Role | Phone | [...] + + | 04/08/ | Telephone | [facility] | Anali Antonio, | | | 2012 | | Pain Center at | ANP | | | | | [facility] | | | | | | [address] | | | | | | [facility] | | | | | | and Healing, | | | | | | Building , | | | | | | Floor [place], [place] | | | | | | [address] | | | | | | [phone] | | | +--------+ + + + [...] this encounter Miscellaneous Notes Telephone Encounter - Maira Noel MA - 04/08/2013 2:05 PM PDTPh to pt She had this done by Dr. Betty García, [facility] Now in the PCP/Care team She wants to send records to this doctor from [place] [facility] to get records from them elephone Encounter - Maira Obando MA - 04/08/2013 2:04 PM PDTMessage copied by MAIRA NOEL on ThuApr 08, 201 3 2:04 PM ------ Message from: ANALI CRUZ Created: ThuApr 08, 2013 10:51 AM Regarding: [facility] Patient had [facility] in [place]. Can we get this record? thanks ------ documented in thi s encounter Plan of Treatment Not on filedocumented as of this encounter Visit Diagnoses Not on filedocumented in this encounter"
--- OUTSIDE RECORDS SUMMARY | ~2020-02-29 | XMS | Encounter Summary ---
Demographics + + + | Address | [address] | | | [place] [address] | + + + | Home Phone [...] Providers + +------+ + | Care Database Analyst Name | Role | Phone | [...] [address] | | | | | [place], [place] | [place], [place] | | | | | [address] | [address] | | | | | [phone] | [phone] | | | | | | | [...]
--- OUTSIDE RECORDS SUMMARY | ~2020-02-29 | XMS | Encounter Summary ---
Demographics + + + | Address | [address] | | | [place] [address] | + + + | Home Phone [...] Team Providers + +------+ + | Care Investment Accounting Clerk Name | Role | Phone | [...] as of this encounter Discharge Summaries Interface, Aircraft Lay Out Worker In - 08/30/2005 2:07 AM PST [id number] GEOVANNI Barnes Admission Date: 07/24/2005 Discharge Date: [...] an appointment. Joanna Ritchie M.D. / SHARIF [id number] / [id number] / [id number] / Electronically signed by Chris Padgett 08-29-2005 03:28:23 PM documented i n this encounter Plan of Treatment Not on filedocumented as of this encounter Visit Diagnoses Not on filedocumented in this encounter"
--- OUTSIDE RECORDS SUMMARY | ~2020-02-29 | XMS | Encounter Summary ---
Demographics + + + | Address | [address] | | | [place] [address] | + + + | Home Phone [...] Team Providers + +------+ + | Care Keno Writer / Runner Name | Role | Phone | [...] + | 01/04/ | Telephone | [facility] | Emmy-Kamlesh, | Skin Irritation | | 2017 | | MEDICINE [address] | MD Petrona | | | | | [place], | [address] | | | | | [place] [address] | [place] [address] | | | | | [phone] | [phone] | | | | | | | [...] | | | | | | [address] [place] [address] [place] | | | | | | [place] [address] | | | | | | [phone] | | | | | | | | +--------+---------+ + + + documented as of this encounter Visit Diagnoses + + | Diagnosis | + + | Tinea cruris - Primary Dermatophytosis of groin and perianal area | + + documented in this encounter"
--- OUTSIDE RECORDS SUMMARY | ~2020-02-29 | XMS | Encounter Summary ---
Demographics + + + | Address | [address] | | | [place] [address] | + + + | Home Phone [...] Providers + +------+ + | Care Pump Runner Name | Role | Phone | + +------+ + | Pedrito Gutierrez MD | PCP | | + +------+ + Reason for Visit + +--------+ + | Reason | Onset | Comments | | | Date | | + +--------+ + | Refill Request | 10/03/ | | | | 2008 | | [...] | | | [facility] | [place], [place] | | | | | [address] | [address] | | | | | [address] | [phone] | | | | | [facility] | | | | | | Physician's | | | | | | Pav[facility] [place], | | | | | | [place] [address] | | | | | | [phone] | | | +--------+--------+ + + + [...]
--- OUTSIDE RECORDS SUMMARY | ~2020-02-29 | XMS | Encounter Summary ---
Demographics + + + | Address | [address] | | | [place] [address] | + + + | Home Phone [...] Team Providers + +------+ + | Care Logistical Engineer Name | Role | Phone | [...] + + | 08/10/ | Telephone | [facility] Comprehensive | Rosi Antonio, | Fall Ground Level | | 2013 | | Pain Center at | ANP | | | | | [facility] | | | | | | [address] | | | | | | [facility] | | | | | | and [place], | | | | | | Building | | | | | | Floor [place], [place] | | | | | | [address] | | | | | | [phone] | | | +--------+ + + + [...] García who is her spine Dr phone: [phone] and fax: [phone]. She will be seeing her on Thursday next week. Thank you. Electronically s igned by Rose Porter at 08/10/2013 12:48 PM PSTTelephone Encounter - Sarah Beth Ivey - 014 9:21 AM PSTRouting to provider. 9:2 1 AM PSTTelephone Encounter - Patricia Riley - 08/10/2013 8:52 AM PSTFormatting of this not e might be different from the original. Reason for Call: No chief complaint on file. Patient: Belinda Meehan Contact Information: Home Phone Work Phone Other [phone] Message: Description of reason for call: Patient called because she had a bad fall yesterday on the tram on the way up to [facility]. She hit her head, her hip, and [...] call back. Thank you Last Encounter with [facility]: Last History in [facility] was on 08/09/13 with NIHARIKA Royal. Future Appointments: Next Appointment in [facility] is on 09/22/13 at 11:00 am with NIHARIKA Royal. Patient's Preferred Pharmacy: Pharmacy Preferences: [facility]cdon[facility]-[address] [facility] [place] [address] documented in this encount er Plan of Treatment Not on filedocumented as of this encounter Visit Diagnoses Not on filedocumented in this encounter
--- OUTSIDE RECORDS SUMMARY | ~2020-02-29 | XMS | Encounter Summary ---
Demographics + + + | Address | [address] | | | [place] [address] | + + + | Home Phone [...] Team Providers + +------+ + | Care Developing Machine Tender Name | Role | Phone | + +------+ + | Pedrito Gutierrez MD | PCP | | + +------+ + Reason for Visit + +--------+ + | Reason | Onset | Comments | | | Date | | + +--------+ + | Lab findings, | 07/07/ | labs done on 07/01/07 | | teaching, guidance, | 2007 | | | and counseling | | | + +--------+ + Encounter Details +--------+ + + + + | Date | Type | Department | Care Team | Description | +--------+ + + + + | 07/07/ | Telephone | [facility] | Chris Padgett, | Lab findings, | | 2007 | | [place] [address] | [address] | teaching, guidance, | | | | Ave Mailcode: [facility] | [facility] [address] | and counseling (labs | | | | [facility] | [place], [place] | done on 07/01/07) | | | | and Healing, | [address] | | | | | [place] [address] [facility] | [phone] | | | | | [place], [place] | | | | | | [address] | | | | | | [phone] | | | +--------+ + + + [...] this encounter Miscellaneous Notes Telephone Encounter - RosarioCole palomares - 07/07/2007 3:29 PM PSTPT INFORMED.Electronically sig yesenia by Cole Rosario at 07/07/2007 3:29 PM PSTTelephone Encounter - Cole Rosario - 07/07/19 3:26 PM PSTStaff Message copied by COLE ROSARIO on ThuJul 07, 2007 3:26 PM ------ Message from: SELIN FELIPE NP Created: ThuJul 07, 2007 10:28 AM Please notify pt labs look fine. Albumin is a little low, so she should be sure to be gett ing plenty of protein. B12 is a little high, she could cut her b12 dose in half if she woul d like. Calcium, vitamin d, kidney and liver function all look great. Belinda Meehan - 10:12 AM (show header) Call Documentation RADHA RICARDO ThuJul 07, 2007 10:13 AM Signed Patient calling for blood work results from 07/01/07 Please call today after 3:30 or after 10 am elephone Encounter - Adriana Macedo - 07/07/2007 3:08 PM PST Please call Belinda to discuss lab results done on 07/01/07. She can be reached at: . documented in this e ncounter Plan of Treatment Not on filedocumented as of this encounter Visit Diagnoses Not on filedocumented in this encounter"
--- OUTSIDE RECORDS SUMMARY | ~2020-02-29 | XMS | Encounter Summary ---
Demographics + + + | Address | [address] | | | [place] [address] | + + + | Home Phone [...] Team Providers + +------+ + | Care Sanitarian Inspector Name | Role | Phone | + +------+ + | Petrona Thapa | PCP | | | MD | | | + +------+ + Reason for Visit +--------+--------+ + | Reason | Onset | Comments | | | Date | | +--------+--------+ + | Other | 06/30/ | | | | 2018 | | +--------+--------+ + Encounter Details +--------+ + + + + | Date | Type | Department | Care Team | Description | +--------+ + + + + | 06/30/ | Telephone | [facility] | Alanis, | Other | | 2018 | | MEDICINE [address] | MD Petrona | | | | | [place], | [address] [facility] | | | | | [place] [address] | [place] [address] | | | | | [phone] | [phone] | | | | | | | [...] Telephone Encounter - Petrona Thapa MD - 07/05/2018 9:14 PM PSTI highly florian bt that the renal cyst (which is most likely what she has) is something we can treat to deny viate her pain, unfortunately. I have ordered the us of kidney, please fax order to [facility]. elephone Encounter - Shlaonda Mcdermott - 07/05/2018 12:12 PM PSTBrenda called to follow up on request, patient is very eager to get moving on this for hopes that it will ohelp with her pain. Please call patient to follow up at [phone]. Patient was informed that provider is out of the office until 07/06/2018.Electronically sig yesenia by Shalonda Mcdermott at 07/05/2018 12:14 PM PSTTelephone Encounter - Maggie Montoya LPN - 4:49 PM PSTPatient notified of MD comments/recommendations. States would like orde r for renal US at [facility]. Please advise elephone Encounter - Mary Kay Kuo - 06/30/2018 4:24 P M PSTPatient called, please advise. elephone Encounter - Petrona Thapa MD - 06/30/2018 3:59 PM PSTI don't have access to [employer]'s system to see the actual MRI pictures, and the radiologist report mentions nothing about a tumor in the kidney. There was a kidney cyst on CT done earlier, and those are not dangerous. If wants to have a kidney us, I can order one. elephone Encounter - Adriana Cantor - 06/30/2018 2:28 PM PSTPatient called back and stated she got a call from her doctor in [place] stating th e tumor on her kidney was larger and they wonder if that could be causing issues with her ba ck. Patient would like a call back to advise, . elephone Encounter - Ayla Quzeada - 06/30/2018 1:50 PM PSTPatient called in stated she would like to talk to the nurse regarding her back issue. Please advise [phone] signed by Ayla Quezada at 06/30/2018 1:52 PM PSTdocumented in this encounter Plan of Treatment +--------+---------+ + + + | Date | Type | Specialty | Care Team | Description | +--------+---------+ + + + | 05/17/ | Office | Internal Medicine | Alanis, | | | 2019 | Visit | | MD Petrona | | | | | | [address] [place] | | | | | | [place] [address] | | | | | | [phone] | | | | | | | [...]
--- OUTSIDE RECORDS SUMMARY | ~2020-02-29 | XMS | Encounter Summary ---
Demographics + + + | Address | [address] | | | [place] [address] | + + + | Home Phone [...] Providers + +------+ + | Care Cloth Bolt Bander Name | Role | Phone | [...] as of this encounter Discharge Summaries Interface, Mechanic Chief In - 01/12/2005 10:09 AM PDT [id number] GEOVANNI SKELTON Molly Admission Date: 12/06/2004 Discharge [...] her incision looked clear, dry, and intact. Girard were in place. She had some moderate [...] Sree Carrillo M.D. Chris Padgett M.D. / [id number] / [id number] / [id number] / [id number] Electronically signed by Chris Padgett 12-31-2004 03:03:21 PM documented i n this encounter Plan of Treatment Not on filedocumented as of this encounter Visit Diagnoses Not on filedocumented in this encounter"
--- OUTSIDE RECORDS SUMMARY | ~2020-02-29 | XMS | Encounter Summary ---
Demographics + + + | Address | [address] | | | [place] [address] | + + + | Home Phone [...] Team Providers + +------+ + | Care Auditing Manager Name | Role | Phone | + +------+ + | Pedrito Gutierrez MD | PCP | | + +------+ + Encounter Details +--------+ + + + + | Date | Type | Department | Care Team | Description | +--------+ + + + + | 12/26/ | Telephone | [facility] | Lukasz Ogden, | | | 2007 | | Pain Center at | PhD [address] | | | | | [facility] | [place], [place] | | | | | [address] | [address] | | | | | [facility] | [phone] | | | | | and Healing, | | | | | | Building | | | | | | Floor [place], [place] | | | | | | [address] | | | | | | [phone] | | | +--------+ + + + [...] y that she is an inpatient at [facility] after an abdominal surgery. documented in this encounter Plan of Treatment Not on filedocumented as of this encounter Visit Diagnoses Not on filedocumented in this encounter"
--- OUTSIDE RECORDS SUMMARY | ~2020-02-29 | XMS | Encounter Summary ---
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 Diagnosis: Madison I: 1. (296.32) Major depressive disorder, recurrent, moderate. 2. (309.24) Adjustment disorder with anxiety. 3. (307.89) Chronic pain disorder associated with both psychological factors and a gene ral medical condition. Madison II: Deferred Madison III: abdominal pain, migraine headache, low back pain. Madison IV: low finances Madison V: GAF 55-60 Plan: Return in 2 weeks. Check mood, pacing, relaxation, activity, distraction. Continue cognit gerda/behavioral therapy. Set goals for summer activity. Total time spent with patient was approximately 45 minutes. LUKASZ CHARLES [facility] [address] [facility], 4th [place] [address] documented in this [facility] Plan of Treatment + + +--------+ + + | Name | Type | Priori | Associated Diagnoses | Order Schedule | | | | ty | | | + + +--------+ + + | [place] [facility], | Procedures | Routin | Major Depressive | Ordered: 11/24/2006 | | OFFICE ([id number]) | | e | Disorder, Recurrent | | | | | | Episode, Moderate | | | | | | ([facility]) Spondylosis | | | | | [...]
--- OUTSIDE RECORDS SUMMARY | ~2020-02-29 | XMS | Encounter Summary ---
Demographics + + + | Address | [address] | | | [place] [address] | + + + | Home Phone [...] Team Providers + +------+ + | Care Farmworker Name | Role | Phone | [...] [address] | | | | | [place], [place] | [place], [place] | | | | | [address] | [address] | | | | | [phone] | [phone] | | | | | | | [...] + | [place] DEPARTMENT OF | [address] [facility] | [place] [address] | | | PATHOLOGY | [address] | | | + + + + + | [facility] DEPARTMENT OF | [address] [facility] | [place] [address] | | | PATHOLOGY | [address] [...] + + | [facility] | [address] [facility] | [place] [address] | | | PATHOLOGY | [address] | | | + + + + + | [facility] | [address] [facility] | [place] [address] | | | PATHOLOGY | [address] [...] Performed At | + + + | [id number] Estimated GFR > 60 mL/min/1.73 sq m if non- | [facility] | | [id number] Estimated GFR > 60 mL/min/1.73 sq m [...] + + | [facility] | [facility] | [place] [address] | | | PATHOLOGY | [address] | | | + + + + + | [facility] | [address] [facility] | [place] [address] | | | PATHOLOGY | [address] | | | + + + + + documented in this encounter Visit Diagnoses Not on filedocumented in this encounter"
--- OUTSIDE RECORDS SUMMARY | ~2020-02-29 | XMS | Encounter Summary ---
[...] Providers + +------+ + | Care Flat Breakdown Processor Name | Role | Phone | + +------+ + | Petrona Thapa | PCP | | | MD | | | + +------+ + Reason for Visit + +--------+ + | Reason | Onset | Comments | | | Date | | + +--------+ + | Results, Imaging | 03/02/ | outside imaging report from [facility] | | | 2018 | | [...] | [place], | [address] [place] | report from . | | | | [place] [address] | [place] [address] | [facility]) | | | | [phone] | [phone] | | | | | | | [...] 5:43 PM PDTReceived US abdominal fro m [facility] results showing fatty liver. Patient notified [...] | | | | | [place] [address] | | | | | | [phone] | | | | | | | | +--------+---------+ + + + documented as of this encounter Visit Diagnoses Not on filedocumented in this encounter"
--- OUTSIDE RECORDS SUMMARY | ~2020-02-29 | XMS | Encounter Summary ---
Demographics + + + | Address | [address] | | | [place] [address] | + + + | Home Phone [...] + + | 06/07/ | Refill | [facility] | Alanis, | Medication Refill | | 2017 | | MEDICINE [address] | MD Petrona | | | | | [place], | [address] [facility] | | | | | [place] [address] | [place] [address] | | | | | [phone] | [phone] | | | | | | | [...] | | | | | [place] [address] | | | | | | [phone] | | | | | | | | +--------+---------+ + + + documented as of this encounter Visit Diagnoses Not on filedocumented in this encounter"
--- OUTSIDE RECORDS SUMMARY | ~2020-02-29 | XMS | Encounter Summary ---
Demographics + + + | Address | [address] | | | [place] [address] | + + + | Home Phone [...] Providers + +------+ + | Care Certified Histologic Technician Name | Role | Phone | [...] | | | [address] | [place] [address] | | | | | [address] | | | | | | [place], 2nd floor | | | | | | [place], [place] | | | | | | [address] | | | | | | [phone] | | | +--------+ + + + [...]
--- OUTSIDE RECORDS SUMMARY | ~2020-02-29 | XMS | Encounter Summary ---
Demographics + + + | Address | [address] | | | [place] [address] | + + + | Home Phone [...] Team Providers + +------+ + | Care Graduating Machine Operator Name | Role | Phone | + +------+ + | Petrona Thapa | PCP | | | MD | | | + +------+ + Encounter Details +--------+ + + + + | Date | Type | Department | Care Team | Description | +--------+ + + + + | 12/18/ | Hospital | [facility] | Luther Brito MD | Abdominal pain, | | 2018 | Encounter | MED CTR MP INTRA OP | [address] | unspecified | | | | [address] | [place], [place] | abdominal location; | | | | [place], [place] | [address] | Gastroesophageal | | | | [address] | [phone] | reflux disease, | | | | [phone] | | esophagitis presence | | | [...] You can't be awakened Date Last Reviewed: 04/01/201619991160-8868 [employer]. [address] [place] [address]. All righ ts reserved. This information is [...] tablet by mouth | | 0 | 02/28/ | | | Vitamins-Minerals | twice daily [...] (See Comments) Confused and questionable for seizures Slrrsqhhke-Nljr-Jlzzmdtq Hives and Rash Cephalexin Hives Ciprofloxacin Hives [...] Electronically Signed by: Luther Brito MD 12/18/2017 [facility] Portions of this chart may have been created with [employer] voice recognition software. Occasi onal wrong-word or sound-alike substitutions may have occurred due to the inherent mitchell itations of voice recognition software. Please read the chart carefully and recognize, using context, where these substitutions have occurred documented in this encounter Miscellaneous Notes D-C Instructions Provation - Luther Brito MD - 12/18/2017 10:49 AM PDTDischarge Instruct ions for Upper Endoscopy Patient: Belinda Rodriguez : 1960 Acct: [id number] Exam Date: Monday, December 18, 2017 Doctor: [...] If unable to reach your physician, call [facility] Emergency Department at [address]. [address] Your doctor [...] Exams Patient: Belinda Rodriguez : 1960 Acct: [id number] Exam Date: Monday, December 18, 2017 Doctor: [...] If unable to reach your physician, call [facility] Emergency Department at [address]. [address] Your doctor [...] | | | | | [place] [address] | | | | | | [phone] | | | | | | | [...] 12/18/2017 | PROVATION | | 10:49 AMMRN: [id number] #: [id number] of : | | | 9Admit Type: AmbulatoryAge: 57Room: [facility] 01Gender: FemaleNote | | | Status: [...] the anesthesiologist and the | | | deburr technician in the pre-procedure area in the [...] | appearing mucosa. This was traversed. The rdklt-ks-uxuofis limb | | | was characterized by healthy appearing mucosa. The | | | jejunojejunal anastomosis was characterized by healthy | | | appearing mucosa. The tlrvjgtb-tr-qbnbhbu limb was not examined | | | [...] Out: | | | 11:08:[address] [facility], [address] | | | [place] [address] | | | - Return to GI [...] Out: 11:08:34 AM | | | [facility], [address] [place], [place] | | | [address] | | + + -+ + +---------+ [...] 12/18/2017 | PROVATION | | 10:43 AMMRN: [id number] #: [id number] of : | | | 9Admit Type: AmbulatoryAge: 57Room: [facility] 01Gender: FemaleNote | | | Status: [...] the anesthesiologist and the | | | deburr technician in the pre-procedure area in the [...] Scope In: 11:12:28 AMScope Out: 11:56:57 AM [place] | | | [facility], [facility] [place] [address] | | | [phone] | | | - Await pathology results. [...] Out: 11:56:57 AM | | | [facility], [address] [place] [address], [place], [place] | | | [address] | | + + -+ + +---------+ [...] for specific diagnostic abnormality. | | | VR:[facility]:C2NR GROSS DESCRIPTION: Received in five parts. [...] | | slide preparation were performed by [employer], [facility] | | | [address], [address], [place] [address] (Employee Services Manager: Stephen Jacobson | | | Joanna CLIA#: [id number]). Professional interpretation was performed | | | by [employer], [facility], [facility] | | | [place] [address] (Employee Services Manager: Stephen | | | Joanna Jacobson; CLIA#: [id number]). Diagnostician: Stephen Khan | | | Kavon [...]
--- OUTSIDE RECORDS SUMMARY | ~2020-02-29 | XMS | Encounter Summary ---
Demographics + + + | Address | [address] | | | [place] [address] | + + + | Home Phone [...] Providers + +------+ + | Care Urban Planner Name | Role | Phone | + +------+ + | Petrona Thapa | PCP | | | MD | | | + +------+ + Encounter Details +--------+ + + + + | Date | Type | Department | Care Team | Description | +--------+ + + + + | 08/11/ | Orders Only | [facility] | Nikita Guzman, | | | 2019 | | MED CTR OP INFUSION | PharmD [address] | | | | | [address] | [place] | | | | | [place] | [address] | | | | | [address] | | | | | | [phone] | | | +--------+ + + + [...] as of this encounter Progress Notes Nikita Guzman PharmD - 08/11/2018 8:40 AM PSTIn September 2018 the Electronic Medical Record (EMR) system used by [facility] will be updated. The category used to [...] insure continuity of care. Please contact the [facility] at with any [...] | | | [facility] [address] | | | | | | [place] [address] | | | | | | [phone] | | | | | | | | +--------+---------+ + + + documented as of this encounter Visit Diagnoses Not on filedocumented in this encounter"
--- OUTSIDE RECORDS SUMMARY | ~2020-02-29 | XMS | Encounter Summary ---
Demographics + + + | Address | [address] | | | [place] [address] | + + + | Home Phone [...] + +------+ + | Care Senior Linux Systems Engineer Name | Role | Phone [...] 02/01/ | Telephone | Kraig Turner | eBto Meeks MD | Medication Question | | 2007 | | [facility] | [address] [place] | | | | | [facility] | [place], [place] | | | | | [address] | [address] | | | | | [address] | [phone] | | | | | [facility] | | | | | | Physician's | | | | | | [facility] | | | | | | [place] [address] | | | | | | [phone] | | | +--------+ + + + [...] PM ------ Message from: MAYA MOHAMUD Created: [facility] Jan 27, 2008 2:07 PM Mary Mini Patient came by to see if Dr Meeks would send her an referral to the Neurology Department. If any questions please call patient at home [phone] Thanks Maya documented in this enco unter Plan of Treatment Not on filedocumented as of this encounter Visit Diagnoses Not on filedocumented in this encounter"
--- OUTSIDE RECORDS SUMMARY | ~2020-02-29 | XMS | Encounter Summary ---
Demographics + + + | Address | [address] | | | [place] [address] | + + + | Home Phone [...] Team Providers + +------+ + | Care Drawing Kiln Supervisor Name | Role | Phone | [...] | | | Vertigo/Medi | | CCC-A [address] | | | | | care/Emmy | | [address] | | | | | /Self | | [address] [place] | | | | | Procedures | | [place] | | | | | OFFICE VISIT | | [address] Phone: | | | | | REGULAR | | [phone] | | | | | | | Fax: | | | | | | | [phone] | +--------+--------+ + + + + Encounter Details +--------+---------+ + + + | Date | Type | Department | Care Team | Description | +--------+---------+ + + + | 12/30/ | Office | [facility] | [place]isabet [place], [place] | Subjective tinnitus | | 2018 | Visit | AUDIOLOGY AND | [facility] [address] | of left ear (Primary | | | | [facility] | [address] [place] | Dx) | | | | [address] | [place] [address] | | | | | [address] [facility] | [phone] | | | | | [place] [address] | | | | | | [phone] | | | +--------+---------+ + + + [...] Progress Notes Elisabet Munson MS CCC-Katie - 12/30/2017 1:30 PM PDTReferring Provider: Petrona [...] 05/17/ | Office | Internal Medicine | EmmyHeikeJeffdolly, | | | 2019 | Visit | | MD Petrona | | | | | | [address] | | | | | | [place] [address] | | | | | | [phone] | | | | | | | [...]
--- OUTSIDE RECORDS SUMMARY | ~2020-02-29 | XMS | Encounter Summary ---
Demographics + + + | Address | [address] | | | [place] [address] | + + + | Home Phone [...] Providers + +------+ + | Care Electronic Controls Repairer Supervisor Name | Role | Phone | [...] [place] | | | | | [place] [address] | [place] [address] | | | | | [phone] | [phone] | | | | | | | [...] | | | | | [place] [address] | | | | | | [phone] | | | | | | | | +--------+---------+ + + + documented as of this encounter Visit Diagnoses Not on filedocumented in this encounter"
--- OUTSIDE RECORDS SUMMARY | ~2020-02-29 | XMS | Encounter Summary ---
Demographics + + + | Address | [address] | | | [place] [address] [...] + | Organization | [facility] | | | and [...] +------+ + | Care Senior Front End Engineer Name | Role | Phone | + +------+ + | Petrona Thapa | PCP | | | MD | | | + +------+ + Reason for Visit + +--------+ + | Reason | Onset | Comments | | | Date | | + +--------+ + | Incontinence | 05/05/ | | | Supplies | 2018 | | + +--------+ + Encounter Details +--------+ + + + + | Date | Type | Department | Care Team | Description | +--------+ + + + + | 05/05/ | Telephone | [facility] | Emmy-Kamlesh, | Incontinence | | 2018 | | MEDICINE [address] | MD Petrona | Supplies | | | | [place], | [address] [facility] | | | | | [place] [address] | [place] [address] | | | | | [phone] | [phone] | | | | | | | [...] encounter Miscellaneous Notes Telephone Encounter - Maggie Montyoa LPN - 05/05/2018 11:06 AM PSTLeft message on patient's voicemail that checked with [facility] and they are waiting on their end for the autho rization from her insurance, will not need a new rx until February 2019.Electronically sign ed by Maggie Montoya LPN at 05/05/2018 11:07 AM PSTTelephone Encounter - Adriana Cantor - 05/05/2018 10:09 AM PSTPatient called to speak with the nurse. Patient was calling to [facility] and see if her incontinence supplies and gloves order had been sent to [facility]. Thu corona call patient to advise, . Electronically signed by Adriana Cantor at 10:09 AM PSTdocumented in this encounter Plan of Treatment +--------+---------+ + + + | Date | Type | Specialty | Care Team | Description | +--------+---------+ + + + | 05/17/ | Office | Internal Medicine | Alanis, | | | 2019 | Visit | | MD Petrona | | | | | | [address] [facility] | | | | | | [place] [address] | | | | | | [phone] | | | | | | | [...]
--- OUTSIDE RECORDS SUMMARY | ~2020-02-29 | XMS | Encounter Summary ---
Demographics + + + | Address | [address] | | | [place] [address] | + + + | Home Phone [...] Team Providers + +------+ + | Care Ed Teacher Name | Role | Phone | [...] Refill Request | | 2007 | | [place] [address] | [address] [facility] | | | | | [place] Mailcode: CH4S | [facility] | | | | | [facility] | [place], [place] | | | | | and Healing, | [address] | | | | | [facility] | [phone] | | | | | [place], [place] | | | | | | [address] | | | | | | [phone] | | | +--------+--------+ + + + [...]
--- OUTSIDE RECORDS SUMMARY | ~2020-02-29 | XMS | Encounter Summary ---
Demographics + + + | Address | [address] | | | [place] [address] | + + + | Home Phone [...] Team Providers + +------+ + | Care Aqueduct And Reservoir Keeper Name | Role | Phone | [...] + | 08/23/ | Telephone | [facility] | Alanis, | Medication Follow-up | | 2018 | | MEDICINE [address] | MD Petrona | (Prior | | | | [address] [place], | [address] [place] | Authorization | | | | [place] [address] | [place] [address] | needed) | | | | [phone] | [phone] | | | | | | | [...] | | | | | [facility] [address] | | | | | | [place] [address] | | | | | | [phone] | | | | | | | | +--------+---------+ + + + documented as of this encounter Visit Diagnoses Not on filedocumented in this encounter"
--- OUTSIDE RECORDS SUMMARY | ~2020-02-29 | XMS | Encounter Summary ---
Demographics + + + | Address | [address] | | | [place] [address] | + + + | Home Phone [...] Providers + +------+ + | Care Senior Quality Methods Specialist Name | Role | Phone | + +------+ + | Petrona Thapa | PCP | | | MD | | | + +------+ + Reason for Visit + +--------+ + | Reason | Onset | Comments | | | Date | | + +--------+ + | Medication Refill | 12/11/ | | | | 2020 | | + +--------+ + Encounter Details +--------+--------+ + + + | Date | Type | Department | Care Team | Description | +--------+--------+ + + + | 12/11/ | Refill | [facility] [place] [facility] | Alanis, | Medication Refill | | 2019 | | MEDICINE [address] | MD Petrona | | | | | [place], | [address] [place] | | | | | [place] [address] | [place] [address] | | | | | [phone] | [phone] | | | | | | | [...] | | | | | | [address] [facility] | | | | | | [place] [address] | | | | | | [phone] | | | | | | | [...]
--- OUTSIDE RECORDS SUMMARY | ~2020-02-29 | XMS | Encounter Summary ---
Demographics + + + | Address | [address] | | | [place] [address] | + + + | Home Phone [...] Providers + +------+ + | Care Steam Boiler Fireman Name | Role | Phone | + +------+ + | Pedrito Gutierrez MD | PCP | | + +------+ + Encounter Details +--------+ + + + + | Date | Type | Department | Care Team | Description | +--------+ + + + + | 08/04/ | Telephone | Digestive Health | Chris Padgett, | | | 2006 | | [place] [address] | [address] [facility] | | | | | [place] Mailcode: CH4S | [facility] | | | | | Center for Health | [place], [place] | | | | | and Healing, | [address] | | | | | Building | [phone] | | | | | Floor [place], [place] | | | | | | [address] | | | | | | [phone] | | | +--------+ + + + [...] Notes Telephone Encounter - Kenisha Melton - 08/07/2006 4:33 PM PSTShe will check with the ur ology Service here at [facility] for new referrals.Electronically signed by eKnisha Melton at 4:33 PM PSTTelephone Encounter - Angie García - 08/04/2006 10:03 AM PSTPt seen in clinic and was told she should probably see a urologist, so she was calling to get MD names to give to her PCP She can be reached at her home # [phone] Thanks m documented in this encounte r Plan of Treatment Not on filedocumented as of this encounter Visit Diagnoses Not on filedocumented in this encounter"
--- OUTSIDE RECORDS SUMMARY | ~2020-02-29 | XMS | Encounter Summary ---
Demographics + + + | Address | [address] | | | [place] [address] | + + + | Home Phone [...] Providers + +------+ + | Care Pocket Grinder Operator Name | Role | Phone [...] [address] | | | | | [place], [place] | [place], [place] | | | | | [address] | [address] | | | | | [phone] | [phone] | | | | | | | [...]
--- OUTSIDE RECORDS SUMMARY | ~2020-02-29 | XMS | Encounter Summary ---
Demographics + + + | Address | [address] | | | [place] [address] | + + + | Home Phone [...] + +------+ + | Care Account Executive Healthcare Name | Role | Phone | + [...] | | | Stay [address] | [place], [place] | Examination; HTN | | | | [address] | [address] | (Hypertension); | | | | Mailcode: UHN65 | [phone] | Chronic Pain | | | | [facility] | | | | | | [address] [facility] [place] | | | | | | [address] | | | | | | [phone] | | | +--------+---------+ + + + [...] the surgery. Please see the list below, [facility] has a list of products that contain [...] PM please call your surgeons' office for [id number]. PARKING Parking for patients and visitors is available in the [facility] Parking structure located across from the emergency department. Patient parking is available on level 1 and 3. Saborstudio d parking is available on the top [...] ADVICE FOR DAY OF SURGERY: Remove nail german from at least one fingernail (if applicable) [...] surgeries scheduled to take place on the [place] at the [facility]: Surgeries scheduled in the [facility]): registration is located on the 4th floor of [facility] (Day Surgery). Surgeries scheduled in the [facility]: registration is located on the 9th floor . For surgeries scheduled to take place at the [facility]: registration i s located on the 4th floor (Surgery Center). AVOID THESE MEDICATIONS FOR 7 DAYS BEFORE SURGERY PRODUCTS CONTAINING ASPIRIN Jacquelyn-[place], Anacin, Anexsia with Codeine, Len nos, Aspirin, Aspirin suppositories, Ascri ptin, Aspergum, Axotal, B-A-C, Baby Aspirin, Lucila, BC Powder, Bexophene, Buffaprin, Bufferi n, Buffinol, Cama-Arthritis Strength, Congespirin, Waldron, Coricidin, Damason, Darvon, Dristan , Anastasia-Gesic, Digel, Dolprin #3 Tablets, Donatab, Doxaphene, Duragesic, Easprin, Ecotrin, Dipika grin Forte, Emiprin, Emprazil, Equagesic, Equazine M, Excedrin, Fiogesic, Fiorgen PH, Fioric et, Fiorinal, 4-Way Cold Tablet Gemnisyn, Indocin, Liquprin, Lortab ASA, Magnaprin, Marnal, Meprobamate, Midol, Momentum, N orgesic, Osterburg, Orphengesic, Pabalate, P-A-C, Percodan, Presalin, Robaxasil, Roxiprin, Bunny eto, Salocol SK-65 Compound, Sine-Aid, Sine-Off,, Atlantic, Supac, Talwin Compound, Trigesic, Tolectin , Traiminicin, Vanquish, ZORprin, Zomax PRODUCTS CONTAINING IBUPROFEN Advil, Aleve, Haltran, Medipren, Midol, Motrin, Naproxyn, Nuprin, Rufen OTHER PRODUCTS WHICH MAY PROMOTE BLEEDING Vitamin E, Gingko Biloba, Marine Fatty Acids, Concord-3 Fish Oil Supplements documented in this encounter [...] [place] | [address] | [place] [address] | | | PATHOLOGY | [address] | | | + + + + + | [facility] | [address] | [place] [address] | | | PATHOLOGY | [address] [...] [facility] | [address] [facility] | [place] [address] | | | PATHOLOGY | [address] | | | + + + + + | [facility] | [address] [facility] | [place] [address] | | | PATHOLOGY | [address] [...] | | | DEPARTMENT | | | EGYPTIAN | | | OF | | | [...] [facility] | [address] [facility] | [place] [address] | | | PATHOLOGY | [address] | | | + + + + + | [facility] | [address] [facility] | [place] [address] | | | PATHOLOGY | [address] [...] DEPARTMENT OF | [address] | [place] [address] | | | PATHOLOGY | [address] | | | + + + + + | [facility] | [address] | [place] [address] | | | PATHOLOGY | [address] [...] view image for the detailed interpretation from [employer] results. | CARDIOLOGY | | | | + + + + + + + + | Performing | Address | City/State/Zipcode | Phone Number | | Organization | | | | + + + + + | [facility] | [address] | [place], [place] | | | CARDIOLOGY | [facility] | [address] | | + + + + + | [facility] | [address] | [place], [place] | | | CARDIOLOGY | [facility] | [address] | | + + + + + [...]
--- OUTSIDE RECORDS SUMMARY | ~2020-02-29 | XMS | Encounter Summary ---
Demographics + + + | Address | [address] | | | [place] [address] | + + + | Home Phone [...] Providers + +------+ + | Care Dredge Hand Name | Role | Phone | [...] ANP | | | | | [facility] | | | | | | [address] | | | | | | Center for Health | | | | | | and Healing, | | | | | | | | | | | | Floor [place], [place] | | | | | | [address] | | | | | | [phone] | | | +--------+ + + + [...] to try to find a physician in [facility] [place] area that would be willing to work with the [facility] and it's recommendations.Maida ctronically signed by Ignacio Hernandez at 01/03/2010 10:46 AM PDTdocumented in this encounter Plan of Treatment Not on filedocumented as of this encounter Visit Diagnoses Not on filedocumented in this encounter
--- OUTSIDE RECORDS SUMMARY | ~2020-02-29 | XMS | Encounter Summary ---
Demographics + + + | Address | [address] | | | [place] [address] | + + + | Home Phone [...] Team Providers + +------+ + | Care Engraver Tender Name | Role | Phone | [...] + + | 03/15/ | Telephone | [facility] | Alanis, | Appointment | | 2017 | | MEDICINE [address] | MD [place] | | | | | [place], | [address] [facility] | | | | | [place] [address] | [place] [address] | | | | | [phone] | [phone] | | | | | | | [...] she is still in the hospital in [place]. Patient stated s he has been in the hospital for over a week now after her emergency bowel surgery. Patient stated she is at [facility], room #115, and would like the nurse [...] | | | | | [place] [address] | | | | | | [phone] | | | | | | | | +--------+---------+ + + + documented as of this encounter Visit Diagnoses Not on filedocumented in this encounter"
--- OUTSIDE RECORDS SUMMARY | ~2020-02-29 | XMS | Encounter Summary ---
Demographics + + + | Address | [address] | | | [place] [address] | + + + | Home Phone [...] Providers + +------+ + | Care Ham Passer Name | Role | Phone | [...] Medication requested | | 2007 | | [place] [address] | [address] | (sucralfate | | | | Ave Mailcode: CH4S | [address] | (CARAFATE) 1 gram | | | | [facility] | [place], [place] | Oral Tablet) | | | | and Healing, | [address] | | | | | [facility] | [phone] | | | | | [place], [place] | | | | | | [address] | | | | | | [phone] | | | +--------+ + + + [...] Procedure: n Pharmacy: Pharmacy Preferences: OPAL GONZÁLES [facility] [address] [place] [address] 9AM-9PM MON-FRI / 9AM-7PM SAT / 10AM-6PM SUN Contact information: [phone] (home) elephone Encounter - Lolly Herrera - [...]
--- OUTSIDE RECORDS SUMMARY | ~2020-02-29 | XMS | Encounter Summary ---
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 1960 Start of Care: 06/23/2006 Referring Provider: [...] lowback; has noted a flare up from er doing activities such as shopping X 2.5 hours. Functionally, patient has increased her walking time at [employer] to 30-40 minutes daily, no t able [...]
--- OUTSIDE RECORDS SUMMARY | ~2020-02-29 | XMS | Encounter Summary ---
Demographics + + + | Address | [address] | | | [place] [address] | + + + | Home Phone [...] Providers + +------+ + | Care Financial Planning Consultant Name | Role | Phone [...] [address] | | | | | | [place], [place] | | | | | | [address] | | | | | | [phone] | | | +--------+ + + + [...]
--- OUTSIDE RECORDS SUMMARY | ~2020-02-29 | XMS | Encounter Summary ---
Demographics + + + | Address | [address] | | | [place] [address] | + + + | Home Phone [...] + + | 12/28/ | Telephone | [facility] | Alanis, | Results, Imaging | | 2017 | | [facility] [address] | MD [place]rona | | | | | [place], | [address] [place] | | | | | [place] [address] | [place] [address] | | | | | [phone] | [phone] | | | | | | | [...] a call back today. Please call back [phone] signed by Malissa Redd at 12/31/2017 2:29 PM PDTTelephone En counter - Malissa Redd - 12/31/2017 8:21 AM PDTPatient called again and would like to k now if the results have been received. Patient is concerned they haven't been sent and would really like to have someone confirm that they have been received. [phone] signed by Malissa Redd at 12/31/2017 8:23 AM PDTTelephone En counter - Malissa Redd - 12/30/2017 11:17 AM PDTPatient called to check on status of res ults for Ultra sound that was done in [facility]. Please return patients call if results were received [phone] signed by Malissa Redd at 12/30/2017 11:19 [...] | | | | | | [address] [place] [address] [address] [place] | | | | | | [place] [address] | | | | | | [phone] | | | | | | | | +--------+---------+ + + + documented as of this encounter Visit Diagnoses Not on filedocumented in this encounter"
--- OUTSIDE RECORDS SUMMARY | ~2020-02-29 | XMS | Encounter Summary ---
Demographics + + + | Address | [address] | | | [place] [address] | + + + | Home Phone [...] Providers + +------+ + | Care Parts Cataloger Name | Role | Phone | + [...] Results, Imaging | | 2017 | | [facility] [address] | MD [place]rona | | | | | [place], | [address] [place] | | | | | [place] [address] | [place] [address] | | | | | [phone] | [phone] | | | | | | | [...] - 07/16/2017 3:40 PM PSTReceived [facility] from [facility]. notifiedElectronically signed by [...] | | | | | [place] [address] | | | | | | [phone] | | | | | | | | +--------+---------+ + + + documented as of this encounter Visit Diagnoses Not on filedocumented in this encounter"
--- OUTSIDE RECORDS SUMMARY | ~2020-02-29 | XMS | Encounter Summary ---
Demographics + + + | Address | [address] | | | [place] [address] | + + + | Home Phone [...] Providers + +------+ + | Care Associate Project Manager Name | Role | Phone [...] as of this encounter Progress Notes Interface, Client Account Representative In - 01/12/2005 6:20 AM PDT Jennifer Belinda Barnes [id number] [facility] REC NUMBER: [id number] NAME : Belinda Meehan DATE : 1960 DISCHARGE ASSESSMENT AND CASE MANAGEMENT NOTES Chart Reviewed: 2004-12-04 15:29:00 Cpr Instructor: Lou Jordan RN Preadmission living situation: family If facilty, name: Additional needs assessment: Case Management Initial Assessment and Ongoing Notes: 12/04/2004 15:29 Rec'd referral from IR everardo. Pt donavan li for panniculectomy per Dr. Chris Padgett 12/06/2004. ----- ------- Living Situation: Pt lives w/ her son, Sree in [place], [place]. Pt also has a caregiver from [employer] come in for 8-9 hours per day when her son is not home. Transportation: Pat w/ [facility] will take pt home (H) (C). Home Health: Pt has an RN from [employer] [facility] visit once a month for an assesment (H) or (C). Medical Equipment: Pt states that she has forearm crutches, a shower chair, and is working on getting hand bars installed into her shower. ---- Co-Morbidities: Panniculitis, s/p gastric bypass, arthritis, asthma, NIDDM, GERD, HTN, and sleep apnea. ------ Providers: PCP is Dr. Pedrito Gutierrez in [facility] and Dr. William Meeks [facility] metabolic disorder clinic. Narrative: Pt asked if [...] or concerns, [place] [phone] documented i n this encounter Plan of Treatment Not on filedocumented as of this encounter Visit Diagnoses Not on filedocumented in this encounter"
--- OUTSIDE RECORDS SUMMARY | ~2020-02-29 | XMS | Encounter Summary ---
Demographics + + + | Address | [address] | | | [place] [address] | + + + | Home Phone [...] Providers + +------+ + | Care Sales Planner Name | Role | Phone | [...] + + | 02/13/ | Telephone | [facility] | Ulysses Genao MD | Other (letter | | 2019 | | OTOLARYNGOLOGY | [address] [place] | request) | | | | SERVICES [address] | [address] | | | | | [address] [place] | [address] | | | | | [place] [address] | | | | | | [phone] | | | +--------+ + + + [...] Miscellaneous Notes Telephone Encounter - Adalgisa Lizarraga, Principal Engineer - 02/15/2020 2:54 PM PDTPatien t was notified that letter was faxed to [phone]. She noted understanding and thanked Dr Yudy Genao. P M PDTTelephone Encounter - Adalgisa Lizarraga Principal Engineer - 02/15/2020 11:39 AM PDTLe tter created and given to Dr. Genao to sign. elephone Encounter - Ulysses Genao MD - 0 10:55 AM PDTPlease write a letter stating that patient was seen by audiology and also by m yself on December 20 and I will sign the letter to return it to the patient. elephone Encounter - Adalgisa Lizarraga Med ical Card Stripper - 02/15/2020 10:13 AM PDTPatient is requesting a letter to be reimbursed for transportation for her appointment on December 18. Please advise. elephone Encounter - Naveen Hathaway - 02/14/2020 11:09 AM PDTPatient called to speak with Dr Genao's clinical staff stating "he needs to send in a letter or something saying that she was here to [facility] transportation . They are going to reimburse her for her mileage". Patient was seen in clinic by Elisabet and Dr Genao on December 20. The letter needs to address the appointment for both the providers. e fax number for [facility] is [phone]. Please advise, patient can be reached at [phone]. documented in this encou nter [...] | | | | | [place] [address] | | | | | | [phone] | | | | | | | | +--------+---------+ + + + documented as of this encounter Visit Diagnoses Not on filedocumented in this encounter
--- OUTSIDE RECORDS SUMMARY | ~2020-02-29 | XMS | Encounter Summary ---
Demographics + + + | Address | [address] | | | [place] [address] | + + + | Home Phone [...] Team Providers + +------+ + | Care Warranty Manager Name | Role | Phone | [...] + + | 10/05/ | Refill | [facility] | Alanis, | Medication Refill | | 2017 | | MEDICINE [address] | MD [place] | | | | | [place], | [address] [facility] | | | | | [place] [address] | [place] [address] | | | | | [phone] | [phone] | | | | | | | [...] [place] | | | | | | [place] [address] | | | | | | [phone] | | | | | | | | +--------+---------+ + + + documented as of this encounter Visit Diagnoses Not on filedocumented in this encounter"
--- OUTSIDE RECORDS SUMMARY | ~2020-02-29 | XMS | Encounter Summary ---
Demographics + + + | Address | [address] | | | [place] [address] | + + + | Home Phone [...] Team Providers + +------+ + | Care Catalog Specialist Name | Role | Phone | + +------+ + | Pedrito Gutierrez MD | PCP | | + +------+ + Reason for Visit + +--------+ + | Reason | Onset | Comments | | | Date | | + +--------+ + | Follow-up visit | 12/04/ | | | | 2006 | | + +--------+ + Encounter Details +--------+---------+ + + + | Date | Type | Department | Care Team | Description | +--------+---------+ + + + | 12/04/ | Office | [facility] | Lukasz Charles, | Major Depressive | | 2006 | Visit | [address] | PhD [address] | Disorder, Recurrent | | | | [facility] | [place], [place] | Episode, Moderate | | | | and Healing, | [address] | ([facility]); Spondylosis | | | | | [phone] | with Myelopathy, | | | | Floor [place], [place] | | Lumbar Region; Left | | | | [address] | | Knee Pain; | | | | [phone] | | Adjustment Disorder | | | [...] is optimistic about her knee surgery. Diagnosis: Groton I: 1. (296.32) Major depressive disorder, recurrent, moderate. 2. (309.24) Adjustment disorder with anxiety. 3. (307.89) Chronic pain disorder associated with both psychological factors and a gene ral medical condition. Groton II: Deferred Groton III: abdominal pain, migraine headache, low back pain. Groton IV: low finances Groton V: GAF 55-60 Plan: Return in 3 months. Check mood, knee surgery, pacing, relaxation, activity, distraction. Continue cognitive/behavioral therapy. Discuss need for further sessions. Total time spent with patient was approximately 45 minutes. LUKASZ CHARLES PHD [facility] [address] [facility] [place] [address] documented in this encount er Plan of Treatment + + +--------+ + + | Name | Type | Priori | Associated Diagnoses | Order Schedule | | | | ty | | | + + +--------+ + + | MS PSYCHOTHERPY, | Procedures | Routin | Major Depressive | Ordered: 12/04/2006 | | OFFICE (52-17) | | e | Disorder, Recurrent | | | | | | Episode, Moderate | | | | | | ([facility]) Spondylosis | | | | [...]
--- OUTSIDE RECORDS SUMMARY | ~2020-02-29 | XMS | Encounter Summary ---
Demographics + + + | Address | [address] | | | [place] [address] | + + + | Home Phone [...] + +------+ + | Care Director Of Infection Control Name | Role | Phone | [...] | Pain | Diagnoses | Emmy | Medical Scheduler Chh1 | | | | Management | [...] | | | | | [place] | [address] | [place], [place] | | | | | disease, | Phone: | [address] | | | | | bilateral | [phone] | Phone: | | | | | Rheumatoid | Fax: | [phone] | | | | | arthritis, | [phone] | Fax: | | | | | unspecified | | [phone] | | | | | | | [...] + + | 02/05/ | Office | [facility] | Shalonda Garcia, | Post laminectomy | | 2017 | Visit | Pain Center at | HOT IRON WORKER [address] | syndrome (Primary | | | | [place] | [place], [place] | Dx); Intractable | | | | [address] | [address] | chronic migraine | | | | [place] for [facility] | [phone] | without aura and | | | | and Healing, | | with status | | | | | | migrainosus; | | | | Floor [place], [place] | | Fibromyalgia | | | | [address] | | | | | | [phone] | | | +--------+---------+ + + + [...] Instructions Kathleen Riley - 02/05/2017 1:35 PM PDTBrendvera, It was good to meet you today. [...] Discuss with your PCP, a referral to [facility] for discussion regarding spinal cord stimulator Shalonda Mustafa DNP, HOT IRON WORKER-C Adult Pain [facility] [address] [place] [address] documented in this encounter Progress Notes Jing Holloway - 02/05/2017 1:35 PM PDT Date: 02/05/2017 was referred for pain management consultation by Sulaiman Whitlock MD [address] [place] [address] Reason for consult: cervical radiculopathy, low back [...] by her primary care pr magdy in [facility]. This provider is currently in the process of re-opening a new clinic and may be available to see patients next month. She reports that this provider d oes not wish to continue prescribing her pain medication and has instructed her to find anot her provided to take over her pain prescriptions. She was previously a patient at a pain cli brigida in [facility], however her insurance changed and she no longer has coverage at this clinic. 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 She feels she is at the point where is not able to determine which medications are hel pful in improving her pain. She endorses incontinence symptoms. She reports there are "days I just want to " because her pain is so bad. 's treatment for this pain complaint has included: MEDICATIONS: - Gabapentin - [place] - [place] - Cymbalta - Fentanyl Patches NON-MEDICATION THERAPIES: - Physical Therapy - Exercise - Heat/Ice - Pool Therapy - Brace/Support - TENS INTERVENTIONS: - Spinal surgery x3, Laminectomy unknown level - Epidural Steroid Injections - Trigger Point Injections lives in a single family home in [place], [place]. She is not currently working , she receives disability. As a result of her pain, notes multiple changes in her life, including limiting her ability to perform routine tasks. 's goals from today's appointment include: consultation only (advice only to you and your primary care physician), counseling, drug treatment, help in coping with the pain a nd stress management. RECREATION THERAPY AIDE Brief Pain Inventory: (ten= worst possible pain [...] Colorectal polyps COPD (chronic obstructive pulmonary disease) ([facility]) CVA (cerebral vascular accident) ([facility]) Fibromyalgia 07/25/2008 Craniocervical junction appears stenotic in cervical extension. Headache HTN (hypertension) Hypothyroidism 11/11/2006 IBS (irritable bowel syndrome) Internal hemorrhoid Kidney stone Major depressive disorder, recurrent episode, moderate ([facility]) 07/31/2006 Metabolic syndrome X 250.80 Metabolic syndrome X 250.80 Optic nerve hemorrhage left eye Other general symptoms Pneumonia PUD (peptic ulcer disease) RA (rheumatoid arthritis) ([facility]) Radiculitis, lumbosacral 03/03/2008 Reduced vision Scoliosis Sleep apnea Spondylosis with myelopathy, lumbar region 07/02/2006 Vertebral fracture T7,8,9 Xray T spine 2003 Past Surgical History Procedure Laterality Date Salpingo-oophorectomy Colonoscopy 03/2006 Tonsillectomy Pr d&c after delivery Pr inject trigger point, 1 or 2 Knee replacement 02/2007 Left knee Knee replacement 08/2007 right knee Lumbar fusion 05/2008, '11 & '12 L5-J6ipxldz with bone spur removals Appendectomy Cholecystectomy section [...] Hives Mainly in the legs Clindamycin Codeine Cqbzgko-Wbzwhxydmf-Miq-Caff Balance problems Fioricet W/Codeine [Surlksyonw-Otagbqgcre-Nyi-Cod] Keflex [Cephalexin] Ketorolac Unknown Morphine IM ( only in [facility]) made gut pain worse 08/27/06: Trial [...] and summary of old medical records (source: [facility]), as summarized in the body of the [...] by her primary care pr magdy in [facility]. She reports that this provider does [...] Whitlock MD may consider a referral to [facility] for discu ssion regarding spinal cord stimulator -No follow up needed at this time 02/05/2017: IKathleen am functioning as a medical office professional instructor for MEGAN Dutta DNP I have reviewed and verified the above scribed note of my visit with this patient as record ed by Kathleen Riley. Shalonda Mustafa DNP, FNP-C [facility] [address] [place] [address] Maris Costa MA - 02/05/2017 1:35 PM [...]
--- OUTSIDE RECORDS SUMMARY | ~2020-02-29 | XMS | Encounter Summary ---
Demographics + + + | Address | [address] | | | [place] [address] | + + + | Home Phone [...] Providers + +------+ + | Care Process Mechanic Name | Role | Phone | [...] | | | | [facility] | | | | | | [place], [facility] Floor | | | | | | [place], [place] | | | | | | [address] | | | | | | [phone] | | | +--------+ + + + [...] this encounter Miscellaneous Notes Scan - Interface, Golf Club Maker In - 01/12/2006 1:16 AM PDT CLINIC DATE: 05/23/2002 EMG PROGRESS NOTE REFERRING PHYSICIAN: Pedrito Gutierrez M.D. CLINICAL COMMENTS: This 42-year-old woman was referred to the [facility] Neuromuscular Neurology Clinic for evaluation of possible [...] Aliza Delgado M.D., Ph. D. TBD / [id number] / [id number] / [id number] / cc: Pedrito Gutierrez M.D. [address] [place] [address] Issac Meeks M.D. [facility] Metabolic Endocrinology Clinic ENDO document ed in [...]
--- OUTSIDE RECORDS SUMMARY | ~2020-02-29 | XMS | Encounter Summary ---
Demographics + + + | Address | [address] | | | [place] [address] | + + + | Home Phone [...] + +------+ + | Care Auto Body Shop Manager Name | Role | Phone | [...] [id number] | | | | | | [place], [place] | | | | | | [address] | | | | | | [phone] | | | +--------+ + + + [...] | + +---------+ + + | [facility] DEPARTMENT OF | | | | | [...] | uIU/ml | | | | | [facility] | | | | | | Laboratories. | | | | + + + + + + + + | Specimen | + + | | + + + + + + + | Performing | Address | City/State/Zipcode | Phone Number | | Organization | | | | + + + + + | [facility] | [address] | [place] [address] | | | LABORATORY | | | | + + + + + documented in this encounter Visit Diagnoses Not on filedocumented in this encounter"
--- OUTSIDE RECORDS SUMMARY | ~2020-02-29 | XMS | Encounter Summary ---
Demographics + + + | Address | [address] | | | [place] [address] | + + + | Home Phone [...] Providers + +------+ + | Care Senior Systems Programmer Name | Role | Phone | [...] + + | 07/16/ | Telephone | [facility] | Alanis, | IV Medication | | 2017 | | MEDICINE [address] | MD [place] | | | | | [place], | [address] [facility] | | | | | [place] [address] | [place] [address] | | | | | [phone] | [phone] | | | | | | | [...] be process and submitted through her insura wve. [facility] Marlyn Rodriguez PharmD - 07/16/2017 2:22 PM PSTTried calling patient to answer any me dication related questions. No answer, left message requesting call back at [phone]. elephone Encounter - Malissa Redd - 07/16/2017 12:19 PM PSTPatient called and would like a call back about the IV please. Patient is also asking about the orders for her Ultrasound if they have been sent to imaging. [phone] signed by Malissa Redd at 07/16/2017 12:21 PM PSTTelephone En counter - Tuan Snider - 07/16/2017 11:03 AM PSTContact/Caller: Belinda Contact Number: [phone] Provider/Nurse: Emmy Reason for Call: Belinda will [...] | | | | | | [address] [place] [address] [place] | | | | | | [place] [address] | | | | | | [phone] | | | | | | | | +--------+---------+ + + + documented as of this encounter Visit Diagnoses Not on filedocumented in this encounter"
--- OUTSIDE RECORDS SUMMARY | ~2020-02-29 | XMS | Encounter Summary ---
Demographics + + + | Address | [address] | | | [place] [address] | + + + | Home Phone [...] Providers + +------+ + | Care Bench Assembler Battery Name | Role | Phone | + [...] of this encounter Progress Notes Interface, Blow Torch Burner In - 01/12/2005 10:09 AM PDT [id number] [facility] Date: 12/19/2004 Clinic: General [...] was doing well without evidence of infection. Bowie and drains were removed showing intact skin [...] as vitamin B12. Melisa Thorne / SHARIF [id number] / [id number] / [id number] / [id number] cc: Pedrito Gutierrez M.D. [facility] [address] [place] [address] FAX: [phone] Chris Padgett M.D. General Surgery, [facility] Electronically signed by Kenisha Melton 12-25-2004 04:28:39 PM documented i n this encounter Plan of Treatment Not on filedocumented as of this encounter Visit Diagnoses Not on filedocumented in this encounter"
--- OUTSIDE RECORDS SUMMARY | ~2020-02-29 | XMS | Encounter Summary ---
Demographics + + + | Address | [address] | | | [place] [address] | + + + | Home Phone [...] Providers + +------+ + | Care Clinical Quality Rn Name | Role | Phone | [...] as of this encounter Progress Notes Interface, Hide Washer In - 10/03/2006 2:33 AM PDT [id number] GE[facility]ANNI Barnes [id number] Clinic Date: 09/14/2006 Clinic: Rheumatology Belinda Meehan [...] every 3 days changed; Trileptal 225 mg; Byers 10/325; and Actonel. Objective: Weight is 214, [...] to this. Caitlin Rivera M.S., F.N.P. / [id number] / [id number] / [id number] / [id number] cc: Pedrito Gutierrez M.D. [address] [place] [address] Linh Lambert, C.A.N.P. [facility] Electronically signed by Caitlin Rivera 10-02-2006 09:24:29 AM documented in this encounter Plan of Treatment Not on filedocumented as of this encounter Visit Diagnoses Not on filedocumented in this encounter"
--- OUTSIDE RECORDS SUMMARY | ~2020-02-29 | XMS | Encounter Summary ---
Demographics + + + | Address | [address] | | | [place] [address] | + + + | Home Phone [...] Providers + +------+ + | Care Air Shovel Operator Name | Role | Phone [...] | left great | [place], | [address] | | | | | toe, initial | [place] | Phone: | | | | | encounter | [address] | [phone] | | | | | | Phone: | Fax: | | | | | | [phone] | [phone] | | | | | | Fax: | | | | | | | [phone] | | +--------+ + + + + [...] phalanx of left | | | | [place] [address] | [place] [address] | great toe, initial | | | | [phone] | [phone] | encounter (Primary | | | | [...] | | | | | [place] [address] | | | | | | [phone] | | | | | | | [...]
--- OUTSIDE RECORDS SUMMARY | ~2020-02-29 | XMS | Encounter Summary ---
Demographics + + + | Address | [address] | | | [place] [address] | + + + | Home Phone [...] Providers + +------+ + | Care Vocational Case Manager Name | Role | Phone [...] | | | | Clinical Nutrition | [place], [place] | | | | | [address] | [address] | | | | | Loop Mailcode: [id number] | [phone] | | | | | Outpatient Clinic | | | | | | [facility] | | | | | | [place] [address] | | | | | | [phone] | | | +--------+ + + + [...] DEPARTMENT OF | [address] | [place] [address] | | | PATHOLOGY | [address] | | | + + + + + | [place] DEPARTMENT OF | [address] | [place] [address] | | | PATHOLOGY | [address] | | | + + + + + documented in this encounter Visit Diagnoses Not on filedocumented in this encounter"
--- OUTSIDE RECORDS SUMMARY | ~2020-02-29 | XMS | Encounter Summary ---
Demographics + + + | Address | [address] | | | [place] [address] | + + + | Home Phone [...] Providers + +------+ + | Care Architectural Representative Name | Role | Phone | [...] | | | | [id number] [facility]ician's | [place], [place] | | | | | [address] | [address] | | | | | [place], [place] | [phone] | | | | | [address] | | | | | | [phone] | | | +--------+ + + + [...]
--- OUTSIDE RECORDS SUMMARY | ~2020-02-29 | XMS | Encounter Summary ---
Demographics + + + | Address | [address] | | | [place] [address] | + + + | Home Phone [...] Providers + +------+ + | Care Heel Boom Operator Name | Role | Phone | [...] | | | [facility] | [place], [place] | Bypass [facility] November | | | | [address] | [address] | 2003; | | | | [address] | [phone] | Hypothyroidism; | | | | [facility] | | Essential | | | | Physician's | | hypertension 401.9; | | | | [facility] [place], | | Iron Deficiency | | | | [place] [address] | | | | | | [phone] | | | +--------+---------+ + + + [...] (Ciprofloxacin) Tramadol Morphine IM ( only in [facility]) made gut pain worse 08/27/06: Trial [...] 300 mg) by oral route once daily osntxaucsk-spidkncyqszqe-rzrcegsi (FIORICET) 50-325-40 mg Oral Tablet take 2 [...]
--- OUTSIDE RECORDS SUMMARY | ~2020-02-29 | XMS | Encounter Summary ---
Demographics + + + | Address | [address] | | | [place] [address] | + + + | Home Phone [...] Providers + +------+ + | Care Spring Floor Service Worker Name | Role | Phone | + +------+ + | Maria Esther Cintron MD | PCP | | + +------+ + Reason for Visit + +--------+ + | Reason | Onset | Comments | | | Date | | + +--------+ + | Refill Request | 09/02/ | | | | 2011 | | + [...] | | | [facility] | [place], [place] | | | | | [address] | [address] | | | | | [address] | [phone] | | | | | Physician's | | | | | | Pavilion, 1st floor | | | | | | [place], [place] | | | | | | [address] | | | | | | [phone] | | | +--------+--------+ + + + [...] Telephone Encounter - Beto Meeks MD - 09/03/2011 9:12 PM PDTI gave her 3 refills of levo thyroxine, but she needs to schedule a F/U appointment. Otherwise, no future refills can be given. elephone Encounter - Tiesha Arvizu - 09/03/2011 1:37 PM PDTI left a VM asking pt to call back and schedul e elephone Encounter - A Milly garner MA - 09/03/2011 12:21 PM PDTLast Office Visit in [facility] was on 07/25 at 1:20 pm with Beto Meeks MD. documented in this enc ounter Plan of Treatment Not on filedocumented as of this encounter Visit Diagnoses Not on filedocumented in this encounter"
--- OUTSIDE RECORDS SUMMARY | ~2020-02-29 | XMS | Encounter Summary ---
Demographics + + + | Address | [address] | | | [place] [address] | + + + | Home Phone [...] Team Providers + +------+ + | Care Groover And Striper Operator Name | Role | Phone | + +------+ + | Pedrito Gutierrez MD | PCP | | + +------+ + Reason for Visit + +--------+ + | Reason | Onset | Comments | | | Date | | + +--------+ + | Follow-up visit | 07/15/ | | | | 2006 | | + +--------+ + Office Visit - E/M Services (Routine) +--------+--------+ + + + + | Status | Reason | Specialty | Diagnoses / | Referred By | Referred To | | | | | Procedures | Contact | Contact | +--------+--------+ + + + + | Closed | | Pain | Diagnoses | Miracle, | Alin, | | | | Management | Depressive | NIHARIKA Jean | Lukasz Rhodes, PhD | | | | | disorder, | [address] | [address] | | | | | not | [address] | Ave | | | | | elsewhere | [place], [place] | [facility] [place] | | | | | classified | [address] | [address] | | | | | Procedures | | Phone: | | | | | [place] | | [phone] | | | | | PSYCHOTHERPY | | Fax: | | | | | , OFFICE | | [phone] | | | | | (03-02) | | | +--------+--------+ + + + + Encounter Details +--------+---------+ + + + | Date | Type | Department | Care Team | Description | +--------+---------+ + + + | 07/15/ | Office | [facility] | Lukasz Charles, | Major Depressive | | 2006 | Visit | [address] | PhD [address] | Disorder, Recurrent | | | | [facility] | [place], [place] | Episode, Moderate | | | | and Healing, | [address] | ([facility]); Cervical | | | | | [phone] | Spondylosis without | | | | Floor [place], [place] | | Myelopathy; Migraine | | | | [address] | | Headache; | | | | [phone] | | Adjustment Disorder | | | [...] She appears to have good insight. Diagnosis: Clive I: 1. (296.32) Major depressive disorder, recurrent, moderate. 2. (309.24) Adjustment disorder with anxiety. 3. 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 Clive II: Deferred Clive III: abdominal pain, migraine headache, low back pain. Clive IV: low finances Clive V: GAF 50 Plan: Return in 2 weeks. Check relaxation and activity. Check mood. Continue cognitive/behavio ral therapy. Total time spent with patient was approximately 50 minutes. LUKASZ CHARLES PHD [facility] [address] [facility], 4th [place] [address] documented in this encount er Plan of [...] | | | ([facility]) Cervical | | | | | | Spondylosis without | | | | | | Myelopathy Migraine | | | | | | Headache | | | | | | Adjustment Disorder | | | | | | with Anxiety | | + + +--------+ + + | [place] BIOFEEDBACK | Procedures | Routin | Cervical [...]
--- OUTSIDE RECORDS SUMMARY | ~2020-02-29 | XMS | Encounter Summary ---
Demographics + + + | Address | [address] | | | [place] [address] | + + + | Home Phone [...] Team Providers + +------+ + | Care Flush Tester Name | Role | Phone | [...] as of this encounter Progress Notes Interface, Bounty Hunter In - 08/19/2005 2:05 AM PST [id number] [facility] Date: 07/29/2005 Clinic: Hematology [...] pursue aggressive iron supplementation. Lukasz Sellers M.D. business objects analyst NANCY / [id number] / [id number] / [id number] / [id number] cc: Pedrito Gutierrez M.D. [address] [address] Electronically signed by Lukasz Sellers 08-18-2005 01:28:12 PM documented i n this encounter Plan of Treatment Not on filedocumented as of this encounter Visit Diagnoses Not on filedocumented in this encounter"
--- OUTSIDE RECORDS SUMMARY | ~2020-02-29 | XMS | Clinical Summary ---
Demographics + + + | Address | [address] | | | [place] [address] | + + + | Home Phone [...] Team Providers + +------+ + | Care Translator Name | Role | Phone | + [...] + + + + + + | Ytlhumusnu-Ctjp-Irnr | Rash | Low | | duplicate | | eine | | | | | + + + + + + | Xmluacpuhe-Uhfn-Dwdi | Hives, Rash | Low | 03/25/20 | | | eine | | | 17 | | + + + + + + | Bexqigeluu-Aln-Lcqp- | Other (See Comments) | Medium | [...] | 19 | | | | : senior living | Decreased | | | | | [...] 02/13/ | Telephone | Otolaryngology | Ulysses Gneao MD | Other (letter | | 2020 [...] | | | | | [address] [facility] [address] | | | | | | [place] [address] | | | | | | [phone] | | | | | | | [...] ST. | [address] | [place], [place] | [phone] | | [facility] | | [address] | | | - LABORATORY | | [...] +--------+ +---------+--------+ | MEDICARE | MEDICA | [id number] | 07/16/19 | [phone] | | Medica | | | RE | | 03-Pre | 5 | | re | | | PART A | | sent | | | | | | AND B | | | | | | + +--------+ +--------+ +---------+--------+ | [employer] | MODA | [id number] | 06/16/19 | [phone] | | Medica | | MEDICAID HMO [...] | 9 | [id number] | [place] [address] | | | bijan | | | 0 (Home) | | + +--------+ +--------+ + + | Belinda Meehanan | Person | Self | [birth year] | [address] | | | al/Fam | | 1960 | [phone] | [place] [address] | | | bijan | | | 0 (Home) | | + +--------+ +--------+ + + Advance Directives + + + + + | Type | Date Recorded | Patient | Explanation | | | | Certified Orthotic Fitter | | + + + + + | Power of | | | | | [employer] | | | | + + + + + | Advance | 10/14/2018 10:09 | | | | Directive | AM | | | + + + + +
--- OUTSIDE RECORDS SUMMARY | ~2020-02-29 | XMS | Encounter Summary ---
Demographics + + + | Address | [address] | | | [place] [address] | + + + | Home Phone [...] + +------+ + | Care Food And Beverage Associate Name | Role | Phone | + +------+ + | Petrona Thapa | PCP | | | MD | | | + +------+ + Reason for Visit +--------+ + | Reason | Comments | +--------+ + | Forms | disability parking permit | +--------+ + Encounter Details +--------+---------+ + + + | Date | Type | Department | Care Team | Description | +--------+---------+ + + + | 12/20/ | Office | [facility] | Alanis, | Medical certificate | | 2020 | Visit | MEDICINE [address] | MD Petrona | issuance (Primary | | | | [address]VE [place], | [address] [facility] | Dx); Other | | | | [place] [address] | [place] [address] | idiopathic | | | | [phone] | [phone] | scoliosis, lumbar | | | | [...] Temperature | 36.9 C (98.4 F) | 12/21/2019 9:01 AM | | | [...] 99.5 kg (219 lb 5.7 | 12/21/2019 9:01 AM | | | | oz) | PDT | | + + + + + | Height | - | - | | + + + + + | Body Mass Index | 33.35 | 01/17/2019 9:53 AM | | | | | PDT | | + + + + + documented in this encounter Progress Notes Petrona Thapa MD - 12/21/2019 9:00 AM PDTFormatting of this note might be d ifferent from the original. CHIEF COMPLAINT Chief Complaint Patient presents with Forms disability parking permit HPI Belinda Meehan is a 59 y.o. y/o female who presents today for several issues: Patient is here to have paperwork filled out for a disability parking permit. She struggles to walk as her scoliosis is getting worse. She also has chronic venous insufficiency with chronic swelling in her lower extremities that makes it difficult to ambulate longer distanc es. She uses crutches at the moment, as she also suffers from fibromyalgia. She does not wear compression stocks, has tried in the past but they are difficult to put o n. Pt is requesting a B12 injection, the last level that was checked was extremely high. She s tates b12 helps her with energy. ASSESSMENT & PLAN 1. Medical certificate issuance 2. Other idiopathic scoliosis, lumbar region -Disabled parking paperwork completed today. 3. Venous insufficiency of both lower extremities - UNABLE TO FIND; Compression Velcro Brace Pads for Lower Legs (1 Pair) REHAN: 99 months.. Dispense: 1 each; Refill: 0 4. B12 deficiency - Vitamin B-12; Future -Advised there could be downsized to using supplementation in injectable form point the lev el is very high. REVIEW OF SYSTEMS Constitutional: No Weight Change, No Fever, No Chills, No Malaise. ENT/Mouth: No Hearing Changes, No Ear Pain, No Nasal Congestion, No Sinus Pain, No Hoarsen ess, No sore throat, No Rhinorrhea, No Swallowing Difficulty. Eyes: No Eye Pain, No Vision Changes. Cardiovascular: No Chest Pain, No Dyspnea on Exertion. Leg edema. Respiratory: No Cough, No SOB Gastrointestinal: No Nausea, No Vomiting, No Pain. Genitourinary: No Dysuria, No Urinary Frequency, No Hematuria. Musculoskeletal: No Arthralgias, No Myalgias. Skin: No Rashes, No Skin Lesions Neuro: No Weakness, No Numbness, No Headache. Psych: No Anxiety/Panic, No Depression. Heme/Lymph: No Bruising, No Bleeding. Endocrine: No Polyuria, No Polydipsia, No Temperature Intolerance. PHYSICAL EXAM VITAL SIGNS: BP 90/56 | Pulse 67 | Temp 36.9 C (98.4 F) (Temporal) | Resp 18 | Wt 9 9.5 kg (219 lb 5.7 oz) | LMP (LMP Unknown) | SpO2 97% | BMI 33.35 kg/m Constitutional: Well developed, No acute distress, Pleasant female. Cardiovascular: Regular rate & rhythm, No murmurs, No rubs, No gallops. 3-4+ lower extremit ies edema. Thorax & Lungs: Normal chest, No respiratory distress, No crackles, wheezing, or rubs. Skin: Warm, No erythema, No rash. Musculoskeletal: Decreased range of motion in all major joints. No joint swelling or rednes s. Neurologic: Alert & oriented x 3, No [...] Common migraine COPD (chronic obstructive pulmonary disease) ([facility]) Depression Diarrhea Dumping syndrome Fall at home Fatigue fracture of vertebra Fibromyalgia Full dentures GERD (gastroesophageal reflux disease) Glaucoma Hyperparathyroidism ([facility]) Hypothyroidism IBS (irritable bowel syndrome) Idiopathic scoliosis Leg edema Low back pain Lumbar postlaminectomy syndrome Lumbar radiculopathy primarily right 01/04/2015 Meniere syndrome Migraine with aura Migraines Muscle cramping Muscle spasm Myalgia Nausea Nonalcoholic hepatosteatosis Obesity Opioid dependence ([facility]) Orthostatic hypotension OLIVER (obstructive sleep apnea) Osteoarthritis, generalized Osteopenia Osteoporosis Palpitations Peripheral neuropathy Rheumatoid arthritis ([facility]) Right arm pain 01/04/2015 RLS (restless legs syndrome) S/P lumbar fusion 01/04/2015 Scoliosis Sleep apnea Spondylosis with myelopathy, lumbar region Stroke ([facility] [...] Types: Cigarettes Quit date: 04/15/2014 Years since quittin.6 Smokeless tobacco: Never Used Tobacco comment: stopped smoking Substance and Sexual Activity Alcohol use: No Alcohol/week: 0.0 standard drinks Drug use: No Sexual activity: Never SURGICAL HISTORY Past Surgical History: Procedure Laterality Date ADENOIDECTOMY APPENDECTOMY BREAST LUMPECTOMY Left 2002 CARPAL TUNNEL RELEASE 2001 SECTION CHOLECYSTECTOMY 2004 COLONOSCOPY N/A 12/18/2017 Procedure: COLONOSCOPY; Surgeon: Luther Brito MD; Location: [facility] MEDICAL PROCEDURE UNIT DILATION AND CURETTAGE OF UTERUS ELBOW SURGERY FINGER TRIGGER RELEASE 2002 FINGER TRIGGER RELEASE 2009 GASTRIC BYPASS SURGERY 2004 HYSTERECTOMY 05/14/1980 JOINT REPLACEMENT Bilateral 2006 2007 KNEE ARTHROSCOPY 2005 LAPAROSCOPY 01/27/2015 LAPAROTOMY 2008 ROTATOR CUFF REPAIR 2005 SPINE SURGERY TONSILLECTOMY 1964 UPPER GASTROINTESTINAL ENDOSCOPY N/A 12/18/2017 Procedure: EGD; Surgeon: Luther Brito MD; Location: [facility] MEDICAL PROCEDURE UNIT CURRENT MEDICATIONS Current Outpatient [...] 1 tablet by mouth as needed for Migraine Take 1 tab by mouth on on-set of Migraine, may repeat in 2 hours if needed. Max 2 tabs/ 24 hours. 12 tablet 5 topiramate (TOPAMAX) 50 MG tablet take 2 tablets by mouth every 12 hours for MIGRAINE P REVENTION 228 tablet 5 torsemide (DEMADEX) 5 mg tablet take 1 tablet by mouth 5 TIMES A WEEK. 25 tablet 5 traZODone (DESYREL) 50 mg tablet Take 1 tablet by mouth nightly as needed for Insomnia. 30 tablet 3 UNABLE TO FIND Compression Velcro Brace Pads for Lower Legs (1 Pair) REHAN: 99 months.. 1 each 0 zinc sulfate 220 mg capsule Take 1 [...] Allergen Reactions Ensure Diarrhea Food Diarrhea Lactose Lgdsfyyqoi-Ije-Tvck-Codeine Other (See Comments) Balance problems Codeine Sulfate Nausea Only Food Allergy Formula Diarrhea Ensure Levofloxacin Hives, Itching and Rash Butalbital Ropinirole Amitriptyline Hcl Other (See Comments) Confused and questionable for seizures Rksexvshxf-Htoa-Ebrshmdf Rash duplicate Vapxwclgwl-Ihga-Jlnrrfkl Hives and Rash Cephalexin Hives Ciprofloxacin Hives and Rash Clarithromycin Hives and Rash Clindamycin Hcl Hives and Rash Doxycycline Rash Duloxetine Other (See Comments) Migraines and nausea Ketorolac Hives Levofloxacin Hives and Rash Morphine Swelling Penicillins Hives and Rash Ropinirole Hcl Hives Sulfamethoxazole-Trimethoprim Hives and Rash Tramadol Hcl Nausea Only FOLLOW-UP No follow-ups on file. Notes: 1. Parts of this documentwere created using [employer] speech recognition software. As a resu lt, [...] signed by Petrona Thapa MD at 2019 9:35 AM PDTdocumented in this encounter Plan [...] [place] | | | | | | [place] [address] | | | | | | [phone] | | | | | | | [...] encounter Results IMAGING REPORT - EXTERNAL SCAN (01/31/2020 12:00 AM PDT) + + + | [...] | B-12 | DEFICIENT: | | [facility] | | | | <145 | | [...] [address] | [place] | [phone] | | [facility] | | [address] | | | - LABORATORY | | | | + + + + + documented in this encounter Visit Diagnoses + + | Diagnosis | + + | Medical certificate issuance - Primary Other issue of medical certificates | + + | Other idiopathic scoliosis, lumbar region | + + | Venous insufficiency of both lower extremities | + + | B12 deficiency Other B-complex deficiencies | + + documented in this encounter"
--- OUTSIDE RECORDS SUMMARY | ~2020-02-29 | XMS | Encounter Summary ---
Demographics + + + | Address | [address] | | | [place] [address] | + + + | Home Phone [...] Providers + +------+ + | Care Roll Up Helper Name | Role | Phone | [...] bowel capsule | | 2005 | | [place] [address] | | endoscopy procedure | | | | [facility] | | | | | | for Health and | | | | | | Healing, Building [address] | | | | | | [place], [place] | | | | | | [address] | | | | | | [phone] | | | +--------+ + + + [...] en doscopy in the G[facility]ology Clinic at [facility], see transcri bed report. Earnest Ward documented in this encount er Plan of Treatment + + +--------+ + + | Name | Type | Priori | Associated Diagnoses | Order Schedule | | | | ty | | | + + +--------+ + + | [facility], | Procedures | Routin [...]
--- OUTSIDE RECORDS SUMMARY | ~2020-02-29 | XMS | Encounter Summary ---
Demographics + + + | Address | [address] | | | [place] [address] | + + + | Home Phone [...] Providers + +------+ + | Care General Utility Machine Operator Name | Role | Phone [...] | | Osteoporosis | i, | [place] | | | | | , | [place]ron[place] | [place], | | | | | unspecified | , MD [address] | [place] [address] | | | | | osteoporosis | [address] | Phone: | | | | | type, | [place], | [phone] | | | | | unspecified | [place] | Fax: | | | | | pathological | [address] | [phone] | | | | | fracture | Phone: | | | | | | presence | [phone] | | | | | | Procedures | Fax: | | | | | | [place] | [phone] | | | | | | ZOLEDRONIC | | | | | | | ACID 1MG | | | +--------+ + + + + + Encounter Details +--------+ + + + + | Date | Type | Department | Care Team | Description | +--------+ + + + + | 07/20/ | Orders Only | [facility] | Alanis, | Osteoporosis, | | 2017 | | MEDICINE [address] | MD [place] | unspecified | | | | [address] [place], | [address] [facility] | osteoporosis type, | | | | [place] [address] | [place] [address] | unspecified | | | | [phone] | [phone] | pathological | | | | | [...] | | | | | [place] [address] | | | | | | [phone] | | | | | | | [...]
--- OUTSIDE RECORDS SUMMARY | ~2020-02-29 | XMS | Encounter Summary ---
Demographics + + + | Address | [address] | | | [place] [address] | + + + | Home Phone [...] Team Providers + +------+ + | Care Warrant Clerk Name | Role | Phone | [...] | Pain | Diagnoses | [place], | [place], | | | | Management | LBP (low | NIHARIKA Jean | Lukasz Rhodes, PhD | | | | | back pain) | [address] | [address] | | | | | DJD | [address] | Ave | | | | | (degenerativ | [place], [place] | [place], [place] | | | | | e joint | [address] | [address] | | | | | disease) of | | Phone: | | | | | knee Knee | | [phone] | | | | | pain Major | | Fax: | | | | | depressive | | [phone] | | | | | disorder, | [...] 04/28/ | Office | [facility] | Lukasz Charles, | Major Depressive | | 2007 | Visit | [address] | PhD [address] | Disorder, Recurrent | | | | [facility] | [place], [place] | Episode, Mild (HCC); | | | | and Healing, | [address] | LBP (Low Back | | | | | [phone] | Pain); Migraine | | | | Floor [place], [place] | | Headache | | | | [address] | | | | | | [phone] | | | +--------+---------+ + + + [...] her son's girlfriend works at a local [employer] and she may be able to use the hot tub there. Ms. Meehan has ongoing depression and frustration. She is not suicidal. She is strugglin g with diffuse pain and poor sleep. She is optimistic about surgery and she has some good p lans for her surgical recovery period. She is scheduled to come here after surgery. Diagnosis: Ely I: 1. (296.31) Major depressive disorder, recurrent, mild. 2. (309.24) Adjustment disorder with anxiety. 3. (307.89) Chronic pain disorder associated with both psychological factors and a gene ral medical condition. Ely II: Deferred Ely III: abdominal pain, migraine headache, low back pain. Ely IV: low finances Ely V: GAF 55-60 Plan: return with next medical follow-up appointment. Check mood, pain, surgical recovery , relaxation, activity, distraction, eating. Ask about headaches, fainting, Thanksgiving. Continue cognitive/behavioral therapy. Total time spent with patient was approximately 45 minutes. LUKASZ CHARLES PHD [facility] [address] [place] [address] [facility], 4th [place] [address] documented in this encount er Plan of Treatment + + +--------+ + + | Name | Type | Priori | Associated Diagnoses | Order Schedule | | | | ty | | | + + +--------+ + + | [facility], | Procedures | Routin | Major Depressive | Ordered: 04/28/2008 | | OFFICE (26-50) | | e | Disorder, Recurrent | [...]
--- OUTSIDE RECORDS SUMMARY | ~2020-02-29 | XMS | Encounter Summary ---
Demographics + + + | Address | [address] | | | [place] [address] | + + + | Home Phone [...] Providers + +------+ + | Care Label Rewinder Name | Role | Phone | + [...] Rom results of | | | | [facility] | | several radiology | | | | [address] | | studies) | | | | [facility] | | | | | | and Healing, | | | | | | Building | | | | | | Floor [place], [place] | | | | | | [address] | | | | | | [phone] | | | +--------+ + + + [...] | + +--------+ + + + | ND MRI LOWER EXTREM | Routin | 08/22/2005 [...] | + +--------+ + + + | ND MRI LOWER EXTREM | Routin | 03/05/2005 [...] + | NAME: BELINDA MEEHAN MR #: [id number] | [facility] | | DATE OF EXAM: [...] Armaan Rivera | | | H : [id number] : 1442 Approved By: Radiologist: | | + + + + + + + + | Performing | Address | City/State/Zipcode | Phone Number | | Organization | | | | + + + + + | [facility] | [address] | [place], [place] | | | [place] [facility] | [address] | [address] | | | TESTS | | | | + + + + + | [facility] | [address] | [place], [place] | | | TESTS | [facility] | [address] | | + + + + + SPINE CERV 4 VIEWS (10/01/2005) + + + | Impressions | Performed At | + + + | SPINE CERVICAL 2 VIEWS AT 1410 HOURS CERVICAL SPINE, 10/01/05 | [facility] | | HISTORY: Chronic back pain. [...] VERONICA | [address] | [place], [place] | | | [place] POINT OF CARE | [facility] | [address] | | | TESTS | | | | + + + + + | [facility] | [address] | [place], [place] | | | TESTS | [facility] | [address] | | + + + + + [...] | | SIGNIFICANT PATHOLOGY. Transcribed By: Armaan Rivera H : | | | [id number] : 1137 Approved By: | | + + + + + + + + | Performing | Address | City/State/Zipcode | Phone Number | | Organization | | | | + + + + + | [facility] | [address] | [place], [place] | | | [facility] | [address] | [address] | | | TESTS | | | | + + + + + | [facility] | [address] | [place], [place] | | | TESTS | [facility] | [address] | | + + + + + MRI SPINE CERVICAL WO CONTRAST (10/01/2005) + + + | Impressions | Performed At | + + + | SPINE LUMBAR 2 VIEWS AT 1421 HOURS LUMBAR SPINE, 10/01/05 | [facility] | | HISTORY: Back pain. FINDINGS: AP and lateral views of the lumbar | CARE TESTS | | spine show five ate-xlw-dgunuxh lumbar vertebrae in normal alignment | | [...] | SPONDYLOSIS. Transcribed By: Armaan Mata : [id number] : | | | 1402 Approved By: | | + + + + + + + + | Performing | Address | City/State/Zipcode | Phone Number | | Organization | | | | + + + + + | [facility] | [address] | [place], [place] | | | [place] [facility] | [address] | [address] | | | TESTS | | | | + + + + + | [facility] | [address] | [place], [place] | | | TESTS | [address] | [address] | | + + + + + MRI SHOULDERS BILAT WO CONT (09/02/2005) + + + | Impressions | Performed At | + + + | UPPER EXT JOINT W/O RT AT 1309 HOURS RIGHT SHOULDER MRI, | [facility] | | 09/02/05 HISTORY: Two years [...] | | Transcribed By: Adriana Pacheco : [id number] : 1215 Approved By: | | | | | + + + + + + + + | Performing | Address | City/State[facility] | Phone Number | | Organization | | | | + + + + + | [facility] | [address] | [place], [place] | | | [facility] [facility] | [address] | [address] | | | TESTS | | | | + + + + + | [facility] | [address] [facility] [address] | [place], [place] | | | TESTS | [address] | [address] | | + + + + + ND MRI LOWER EXTREM JT, W/O CONTRAST (08/22/2005) + + + | Impressions | Performed At | + + + | LOWER EXTREMITY JOINT RT W/O AT 1619 HOURS RIGHT KNEE MRI, | [facility] | | 08/22/05 HISTORY: Chronic posterior [...] | + + + + + | [facility] | [address] | [place], [place] | | | [facility] | [address] | [address] | | | TESTS | | | | + + + + + | [facility] | [address] | [place], [place] | | | TESTS | [address] | [address] | | + + + + + NM BONE IMG WHOLE BODY (05/16/2005) + + + | Impressions | Performed At | + + + | BONE SCAN (SPECT) AT 1232 HOURS BONE SPECT, 05/16/05 | [facility] | | HISTORY: Chronic thoracic pain [...] + + + | [facility] | [address] | [place], [place] | | | [facility] [facility] | [facility] | [address] | | | TESTS | | | | + + + + + | [facility] | [address] | [place], [place] | | | TESTS | [address] | [address] | | + + + + + ND MRI LOWER EXTREM JT, W/O CONTRAST (03/05/2005) [...] | | | By: Armaan Mata : [id number] : 1416 Approved By: | | + + + + + + + + | Performing | Address | City/State/Zipcode | Phone Number | | Organization | | | | + + + + + | [facility] | [address] | [place], [place] | | | [facility] | [address] | [address] | | | TESTS | | | [...] Transcribed By: Armaan | | | Nicole MataYudy : [id number] : 1555 Approved By: | | + + + + + + + + | Performing | Address | City/State/Zipcode | Phone Number | | Organization | | | | + + + + + | [facility] | [address] | [place], [place] | | | [place] [facility] | [address] | [address] | | | TESTS | | | [...] Adriana | | | Aminata Pacheco : [id number] : 1505 Approved By: | | + + + + + + + + | Performing | Address | City/State/Zipcode | Phone Number | | Organization | | | | + + + + + | [facility] | [address] | [place], [place] | | | [facility] [facility] | [facility] | [address] | | | TESTS | | | | + + + + + documented in this encounter Visit Diagnoses Not on filedocumented in this encounter"
--- OUTSIDE RECORDS SUMMARY | ~2020-02-29 | XMS | Encounter Summary ---
Demographics + + + | Address | [address] | | | [place] [address] | + + + | Home Phone [...] Providers + +------+ + | Care Rn Lab Name | Role | Phone | [...] [address] | | | | | | [place], [place] | | | | | | [address] | | | | | | [phone] | | | +--------+ + + + [...] + + + + + | [facility] | [address] | [place] [address] | | | PATHOLOGY | [address] | | | + + + + + | [facility] | [address] | [place] [address] | | | PATHOLOGY | [address] [...] DEPARTMENT OF | [address] | [place] [address] | | | PATHOLOGY | [address] | | | + + + + + | [facility] DEPARTMENT OF | [address] | [place] [address] | | | PATHOLOGY | [address] [...] DEPARTMENT OF | [address] | [place] [address] | | | PATHOLOGY | [address] | | | + + + + + | [facility] DEPARTMENT OF | [address] | [place] [address] | | | PATHOLOGY | [address] [...] | [facility] DEPARTMENT OF | [facility] | [place] [address] | | | PATHOLOGY | [address] | | | + + + + + | [facility] DEPARTMENT OF | [facility] | [place] [address] | | | PATHOLOGY | [address] [...] + + + | [facility] | [address] | [place] [address] | | | LABORATORY | | | [...] | | | | | performed at [place] | | | | | | [facility] | | | | | | Laboratory | | | | + + + + + + + + | Specimen | + + | | + + + + + + + | Performing | Address | City/State/Zipcode | Phone Number | | Organization | | | | + + + + + | [facility] | [address] | [place] [address] | | | LABORATORY | | | | + + + + + documented in this encounter Visit Diagnoses + + | Diagnosis | + + | Chronic abdominal pain Abdominal pain, unspecified site | + + | Iron deficiency Other disorders of iron metabolism | + + documented in this encounter"
--- OUTSIDE RECORDS SUMMARY | ~2020-02-29 | XMS | Encounter Summary ---
Demographics + + + | Address | [address] | | | [place] [address] | + + + | Home Phone [...] + + | 11/22/ | Refill | [facility] | Alanis, | Medication Refill | | 2019 | | MEDICINE [address] | MD Petrona | | | | | [place], | [address] [facility] | | | | | [place] [address] | [place] [address] | | | | | [phone] | [phone] | | | | | | | [...] | | | | | [place] [address] | | | | | | [phone] | | | | | | | | +--------+---------+ + + + documented as of this encounter Visit Diagnoses Not on filedocumented in this encounter"
--- OUTSIDE RECORDS SUMMARY | ~2020-02-29 | XMS | Encounter Summary ---
Demographics + + + | Address | [address] | | | [place] [address] | + + + | Home Phone [...] Team Providers + +------+ + | Care Onsite Health Coach Name | Role | Phone | + +------+ + | Petrona Thapa | PCP | | | MD | | | + +------+ + Reason for Visit + +--------+ + | Reason | Onset | Comments | | | Date | | + +--------+ + | Medication Refill | 07/14/ | | | | 2017 | | + +--------+ + Encounter Details +--------+--------+ + + + | Date | Type | Department | Care Team | Description | +--------+--------+ + + + | 07/14/ | Refill | [facility] | Alanis, | Medication Refill | | 2017 | | [facility] [address] | MD Petrona | | | | | [place], | [address] [place] | | | | | [place] [address] | [place] [address] | | | | | [phone] | [phone] | | | | | | | [...] Telephone Encounter - Maggie Montoya LPN - 07/15/2017 10:44 AM PSTZofran sent to pharmacy a deanna Sesay called in. Printed rx destroyed, shredded elephone Encounter - Shalonda Mcdermott - 07/14/2017 9:42 AM PSTM edication: lamotil Strength: 2.5-0.025 mg per tab Directions: 1 tab 4 times daily PRN Quantity: 120 Medication: zofran odt Strength: 4 mg Directions: 1 tab every 6 hours PRN Quantity: unknown Pharmacy: [facility] Call/Mail/[facility]/Fax: fax Date of Last Refill: unknown Date of Last Visit: 06/01/2017 Date of Next Visit: 07/16/2017 documented in this encount er Plan of [...] | | | | | [place] [address] | | | | | | [phone] | | | | | | | | +--------+---------+ + + + documented as of this encounter Visit Diagnoses Not on filedocumented in this encounter"
--- OUTSIDE RECORDS SUMMARY | ~2020-02-29 | XMS | Encounter Summary ---
Demographics + + + | Address | [address] | | | [place] [address] | + + + | Home Phone [...] Providers + +------+ + | Care Oracle Soa Consultant Name | Role | Phone | [...] | | | [facility] | [place], [place] | | | | | [address] | [address] | | | | | [address] | [phone] | | | | | [facility] | | | | | | Physician's | | | | | | Pavilion [place], | | | | | | [place] [address] | | | | | | [phone] | | | +--------+--------+ + + + [...] 10/18/2009 1:29 PM PDTLast Office Visit in [facility] 10[facility] at 1:30 pm with NIHARIKA Ng. documented in this encount er Plan of Treatment Not on filedocumented as of this encounter Visit Diagnoses Not on filedocumented in this encounter"
--- OUTSIDE RECORDS SUMMARY | ~2020-02-29 | XMS | Encounter Summary ---
Demographics + + + | Address | [address] | | | [place] [address] | + + + | Home Phone [...] Team Providers + +------+ + | Care Belly Packer Name | Role | Phone | [...] as of this encounter Progress Notes Interface, Chocolate Production Machine Operator In - 01/13/2005 9:03 AM PDT [id number] [facility] Date: 01/02/2005 Clinic: [facility] Subjective: Ms. Meehan presents today on a walk-in basis for evaluation of some discharge from her panniculectomy incisions over her medial thighs. She reports that she was in town today from [place], [place], to get some labs drawn at [facility] and decided to stop by [...] Sree Riley M.D. Chris Padgett M.D. / [id number] / [id number] / [id number] / [id number] C: 01/08/2005 cmw documented i n this encounter Plan of Treatment Not on filedocumented as of this encounter Visit Diagnoses Not on filedocumented in this encounter"
--- OUTSIDE RECORDS SUMMARY | ~2020-02-29 | XMS | Encounter Summary ---
Demographics + + + | Address | [address] | | | [place] [address] | + + + | Home Phone [...] Team Providers + +------+ + | Care Healthcare Or Medical Name | Role | Phone | + [...] of this encounter Progress Notes Interface, Insurance Job Titles In - 11/19/2005 3:09 AM [facility] [address], [place] [id number] or May 09, 2003 Pedrito Gutierrez M.D. [address] [place] [address] RE: BELINDA MEEHAN MR #: [id number] Dear Dr. Gutierrez: I had the pleasure [...] this testing done through your clinic in [place]. I will plan to see her again [...] regarding her condition. Sincerely, Issac Meeks M.D. marketing planning manager, Division of Endocrinology, Diabetes, and Clinical Air Cargo Ground Crew Supervisor, Metabolic Disorders Clinic MONIQUE / SHARIF [id number] / [id number] / [id number] / Tdocumented in this encounter Plan of Treatment Not on filedocumented as of this encounter Visit Diagnoses Not on filedocumented in this encounter"
--- OUTSIDE RECORDS SUMMARY | ~2020-02-29 | XMS | Encounter Summary ---
Demographics + + + | Address | [address] | | | [place] [address] | + + + | Home Phone [...] Providers + +------+ + | Care Parts Person Name | Role | Phone [...] + + | 05/04/ | Refill | [facility] | Alanis, | Medication Refill | | 2017 | | MEDICINE [address] | MD Petrona | | | | | [place], | [address] [facility] | | | | | [place] [address] | [place] [address] | | | | | [phone] | [phone] | | | | | | | [...] | | | | | [place] [address] | | | | | | [phone] | | | | | | | | +--------+---------+ + + + documented as of this encounter Visit Diagnoses Not on filedocumented in this encounter"
--- OUTSIDE RECORDS SUMMARY | ~2020-02-29 | XMS | Encounter Summary ---
Demographics + + + | Address | [address] | | | [place] [address] | + + + | Home Phone [...] + +------+ + | Care X Ray Service Technician Name | Role | Phone [...] | | | [facility] | [place], [place] | | | | | [address] | [address] | | | | | [address] | [phone] | | | | | Physician's | | | | | | Pavilion, 1st floor | | | | | | [place], [place] | | | | | | [address] | | | | | | [phone] | | | +--------+--------+ + + + [...] 04/02/2009 11:14 AM PDTLast Office Visit in [facility] was on 07/25/08 at 1:20 pm with Beto Meeks MD. No future appt scheduled. Refill approved per protocol. documented in this encounte r Plan of Treatment Not on filedocumented as of this encounter Visit Diagnoses Not on filedocumented in this encounter"
--- OUTSIDE RECORDS SUMMARY | ~2020-02-29 | XMS | Encounter Summary ---
Demographics + + + | Address | [address] | | | [place] [address] | + + + | Home Phone [...] | | | [facility] | [place], [place] | | | | | [address] | [address] | | | | | [address] | [phone] | | | | | [facility] | | | | | | Physician's | | | | | | Pavilion [place], | | | | | | [place] [address] | | | | | | [phone] | | | +--------+--------+ + + + [...] 08/23/2009 2:35 PM PSTLast Office Visit in [facility] was on 07/25/08 at 1:20 pm with Beto Meeks MD. No future appointments scheduled in [facility]. documented in this [facility] Plan of Treatment Not on filedocumented as of this encounter Visit Diagnoses Not on filedocumented in this encounter"
--- OUTSIDE RECORDS SUMMARY | ~2020-02-29 | XMS | Encounter Summary ---
Demographics + + + | Address | [address] | | | [place] [address] | + + + | Home Phone [...] Team Providers + +------+ + | Care Template Maker Name | Role | Phone | + +------+ + | Pertona Thapa | PCP | | | MD | | | + +------+ + Encounter Details +--------+ + + + + | Date | Type | Department | Care Team | Description | +--------+ + + + + | [facility] | Alanis, | Impingement syndrome | | 2018 | Encounter | [facility] | MD Petrona | of right shoulder | | | | [address] [place] | [address] [facility] | | | | | [place], [place] | [place] [address] | | | | | [address] | [phone] | | | | | [phone] | | | +--------+ + + + [...] [address] | | | | | | [place] [address] | | | | | | [phone] | | | | | | | [...]
--- OUTSIDE RECORDS SUMMARY | ~2020-02-29 | XMS | Encounter Summary ---
Demographics + + + | Address | [address] | | | [place] [address] | + + + | Home Phone [...] Providers + +------+ + | Care Director Software Development Name | Role | Phone | [...] of this encounter Progress Notes Interface, General Internal Medicine Physician In - 11/05/2005 2:06 AM PDT [id number] GEOVANNI SKELTON [place] [id number] Clinic Date: 10/20/2005 Clinic: Bariatric Surgery Clinic Subjective: Ms. Meehan returns today for continued evaluation of her abdominal pain. She has had a gastric bypass followed by a panniculectomy approximately 1 year ago. She has had diffuse sharp and crampy abdominal pain which lasts up to 45 minutes. She says "it takes her breath away." She went to the emergency room at [place] last night and got some IV pain [...] . Wali Valentine M.D. CONNOR / SHARIF [id number] / [id number] / [id number] / [id number] Electronically signed by Luther Valentine 11-04-2005 11:36:40 AM documented i n this encounter Plan of Treatment Not on filedocumented as of this encounter Visit Diagnoses Not on filedocumented in this encounter
--- OUTSIDE RECORDS SUMMARY | ~2020-02-29 | XMS | Encounter Summary ---
Demographics + + + | Address | [address] | | | [place] [address] | + + + | Home Phone [...] Providers + +------+ + | Care Pilot Supervisor Name | Role | Phone | [...] 2006 | Visit | Rheumatology [address] | HEAD OF TRAINING AND DEVELOPMENT | Fibromyalgia; | | | | [address] | | Fibromyalgia | | | | Mailcode: OPC5 | | | | | | Outpatient Clinic | | | | | | [place], | | | | | | [place] [address] | | | | | | [phone] | | | +--------+---------+ + + + [...] however and she has been out of [facility] for 2 weeks. Some of this is [...] 4-5/5 for all major deltoids, biceps, triceps. Facility Designer slightly weak. Tone is normal. There is [...] cervical spine MRI to be done at [facility]. A few of these [...]
--- OUTSIDE RECORDS SUMMARY | ~2020-02-29 | XMS | Encounter Summary ---
Demographics + + + | Address | [address] | | | [place] [address] | + + + | Home Phone [...] Team Providers + +------+ + | Care Drugless Doctor Name | Role | Phone | [...] | Visit | [facility] [address] | CIVIL ENGINEERING ASSISTANT | syndrome [address] | | | | [address] | | (Primary Dx); | | | | Physician's | | Fibromyalgia | | | | Pavilion, 4th Floor | | | | | | [place], [place] | | | | | | [address] | | | | | | [phone] | | | +--------+---------+ + + + [...] + + +--------+ + + | NH INJECT TRIGGER | Procedures | Routin | [...]
--- OUTSIDE RECORDS SUMMARY | ~2020-02-29 | XMS | Encounter Summary ---
Demographics + + + | Address | [address] | | | [place] [address] | + + + | Home Phone [...] Providers + +------+ + | Care Flight Information Expediter Name | Role | Phone | [...] [place] | | | | | [place] [address] | [place] [address] | | | | | [phone] | [phone] | | | | | | | [...] request refill, patient can be reached at [phone] documented in this encounte r Plan of [...] | | | | | [place] [address] | | | | | | [phone] | | | | | | | | +--------+---------+ + + + documented as of this encounter Visit Diagnoses + + | Diagnosis | + + | Chronic diarrhea Diarrhea | + + documented in this encounter"
--- OUTSIDE RECORDS SUMMARY | ~2020-02-29 | XMS | Encounter Summary ---
Demographics + + + | Address | [address] | | | [place] [address] | + + + | Home Phone [...] Providers + +------+ + | Care Wide Load Escort Name | Role | Phone | + +------+ + | Pedrito Gutierrez MD | PCP | | + +------+ + Encounter Details +--------+ + + + + | Date | Type | Department | Care Team | Description | +--------+ + + + + | 01/14/ | Telephone | [facility]ive [facility] | Chris Padgett, | | | 2009 | | [place] [address] | [address] [facility] | | | | | Bethanie Mailcode: CH4S | [facility] | | | | | Center for Health | [place], [place] | | | | | and Healing, | [address] | | | | | [facility] | [phone] | | | | | Floor [place], [place] | | | | | | [address] | | | | | | [phone] | | | +--------+ + + + [...] we should receive today or tomorrow from Bernard. Advised caller that they may not receive a call back from nurse or provider until the next business day. Caller understands and is agreeable to this. documented in this encou nter Plan of Treatment Not on filedocumented as of this encounter Visit Diagnoses Not on filedocumented in this encounter"
--- OUTSIDE RECORDS SUMMARY | ~2020-02-29 | XMS | Encounter Summary ---
Demographics + + + | Address | [address] | | | [place] [address] | + + + | Home Phone [...] Providers + +------+ + | Care Corporate Travel Coordinator Name | Role | Phone | [...] as of this encounter Progress Notes Interface, Finisher Polisher In - 12/09/2005 2:08 AM PDT [id number] GEOVANNI SKELTON J [id number] Clinic Date: 11/26/2005 Clinic: General Surgery Clinic Subjective: Ms. Belinda Meeahn recently returned to clinic with complaints of [...] with extensive workup. Prescription picked up at [facility] on November 25, 2005, for 50 oxycodone 5 mg. Melisa Thorne / [id number] / [id number] / [id number] / [id number] Electronically signed by Kenisha Melton 12-05-2005 08:28:34 PM documented i n this encounter Plan of Treatment Not on filedocumented as of this encounter Visit Diagnoses Not on filedocumented in this encounter"
--- OUTSIDE RECORDS SUMMARY | ~2020-02-29 | XMS | Encounter Summary ---
Demographics + + + | Address | [address] | | | [place] [address] | + + + | Home Phone [...] Providers + +------+ + | Care Skin Diving Teacher Name | Role | Phone | [...] Lab findings, | | 2007 | | [place] [address] | [address] | teaching, guidance, | | | | Ave Mailcode: CH4S | [address] | and counseling | | | | [facility] | [place], [place] | | | | | and Healing, | [address] | | | | | [place] [address] [facility] | [phone] | | | | | [place], [place] | | | | | | [address] | | | | | | [phone] | | | +--------+ + + + [...]
--- OUTSIDE RECORDS SUMMARY | ~2020-02-29 | XMS | Encounter Summary ---
Demographics + + + | Address | [address] | | | [place] [address] | + + + | Home Phone [...] Providers + +------+ + | Care Evp Managing Director Name | Role | Phone | + +------+ + | Pedrito Gutierrez MD | PCP | | + +------+ + Reason for Visit + +--------+ + | Reason | Onset | Comments | | | Date | | + +--------+ + | Osteopenia | 07/01/ | | | | 2006 | | + +--------+ + Encounter Details +--------+ + + + + | Date | Type | Department | Care Team | Description | +--------+ + + + + | 06/25/ | Telephone | [facility] | Alhaji Padgettifford, | Osteopenia | | 2006 | | Center [address] | [address] [facility] | | | | | [place] Mailcode: CH4S | [facility] | | | | | [facility] | [place], [place] | | | | | and Healing, | [address] | | | | | [facility] | [phone] | | | | | Floor [place], [place] | | | | | | [address] | | | | | | [phone] | | | +--------+ + + + [...] Telephone Encounter - Nuris Cardenas Rn - 07/01/2006 2:12 PM PSTPt. Notified of osteopenic s tatus. She is instructed to resume calcium and vitamin D BID. At her request, I notified Buzz Meeks, endocrinology, of her results via [employer]. She plans to f/u on this with penelope tomas at her 07/30/06 appt. el ephone Encounter - Romeo Kaur - 07/01/2006 8:36 AM PSTPt is calling again to fu on this r equest. elephone Encounter - Mila Vega - 06/26/2006 9:00 AM PSTPt was calling again for results. It is almost the weekend and Thursday is a holiday. Patient states it is ok to leave confidential message on patient's answering machine. thank you, des elephone Adriana Lazo 06/25/2006 8:40 AM PST patient Belinda Meehan called t o get her Bone Density results that were done on 06/24/06. Please call patient at home# . documented in t his encounter Plan of Treatment Not on filedocumented as of this encounter Visit Diagnoses Not on filedocumented in this encounter"
--- OUTSIDE RECORDS SUMMARY | ~2020-02-29 | XMS | Encounter Summary ---
Demographics + + + | Address | [address] | | | [place] [address] | + + + | Home Phone [...] Providers + +------+ + | Care Commodity Analyst Name | Role | Phone | + +------+ + | Petrona Thapa | PCP | | | MD | | | + +------+ + Encounter Details +--------+---------+ + + + | Date | Type | Department | Care Team | Description | +--------+---------+ + + + | 12/18/ | Surgery | [facility] | Luther Brito MD | EGD | | 2018 | | MED CTR MP INTRA OP | [address] | | | | | [address] | [place], [place] | | | | | [place] | [address] | | | | | [address] | [phone] | | | | | [phone] | | | +--------+---------+ + + + [...] You can't be awakened Date Last Reviewed: 04/01/201619998911-6448 [employer]. [address] [place] [address], [place] [address]. All righ ts reserved. This information is [...] apnea Spondylosis with myelopathy, lumbar region Stroke ([facility]) Syncope Tremor Type II [...] (See Comments) Confused and questionable for seizures Uyvixlyyqo-Lwue-Aaalzzvd Hives and Rash Cephalexin Hives Ciprofloxacin Hives [...] Electronically Signed by: Luther Brito MD 12/18/2017 [facility] Portions of this chart may have been created with [employer] voice recognition software. Occasi onal wrong-word or [...] Endoscopy Patient: Belinda Rodriguez : 1960 Acct: [id number] Exam Date: Monday, December 18, 2017 Doctor: [...] If unable to reach your physician, call [facility] Emergency Department at [address]. [address] Your doctor [...] Exams Patient: Belinda Rodriguez : 1960 Acct: [id number] Exam Date: Monday, December 18, 2017 Doctor: [...] If unable to reach your physician, call [facility] Emergency Department at [address] Your doctor [...] | | | | | | [address] [facility] [place] | | | | | | [place] [address] | | | | | | [phone] | | | | | | | [...] 12/18/2017 | PROVATION | | 10:49 AMMRN: [id number] #: [id number] of : | | | 9Admit Type: AmbulatoryAge: 57Room: [place] [address]Gender: FemaleNote | | | Status: FinalizedAttending MD: Luther Brito , [facility]cedure: | | | Upper GI endoscopyIndications: [...] the anesthesiologist and the | | | collections technician in the pre-procedure area in the [...] | appearing mucosa. This was traversed. The gkolc-rc-xamoxzs limb | | | was characterized by healthy appearing mucosa. The | | | jejunojejunal anastomosis was characterized by healthy | | | appearing mucosa. The ncoovsqq-td-bthurwi limb was not examined | | | [...] AMScope Out: | | | 11:08:34 AM [facility], [address] | | | [place] [address] | | | - Return to GI [...] |Scope Out: 11:08:34 AM | | | [facility], [address], [place] | | | [address] | | + + -+ + +---------+ [...] 12/18/2017 | PROVATION | | 10:43 AMMRN: [id number] #: [id number] of : | | | 1960dmit Type: AmbulatoryAge: 57Room: [facility] 01Gender: FemaleNote | | | Status: FinalizedAttending MD: Luther Brito , [facility]rocedure: | | | ColonoscopyIndications: Generalized abdominal [...] the anesthesiologist and the | | | collections technician in the pre-procedure area in the [...] Scope In: 11:12:28 AMScope Out: 11:56:57 AM [place] | | | [facility], [address] [place] [address] | | | [phone] | | | - Await pathology results. [...] |Scope Out: 11:56:57 AM | | | [facility], [address], [place] | | | [address] | | + + -+ + +---------+ + + | Performing | Address | City/State/[facility] Cliniccode | Phone Number | | Organization | [...] for specific diagnostic abnormality. | | | JVR:[facility]:C2NR GROSS DESCRIPTION: Received in five parts. [...] | | slide preparation were performed by [facility], [address], [place] [address] (Straw Hat Brusher: Stephen Jacobson, | | | Joanna CLIA#: [id number]). Professional interpretation was performed | | | by [facility], [facility], [address] [place] [address] (Straw Hat Brusher: Stephen Jacobosn M.D.; CLIA#: [id number]). Diagnostician: Stephen Donaldson | Kavon SHEEHAN Pathologist Electronically Signed 12/21/2017 | | + + + + +---------+ + + | Performing | Address | City/State/[facility] Cliniccode | Phone Number | | Organization | [...]
--- OUTSIDE RECORDS SUMMARY | ~2020-02-29 | XMS | Encounter Summary ---
Demographics + + + | Address | [address] | | | [place] [address] | + + + | Home Phone [...] Team Providers + +------+ + | Care Toolman Name | Role | Phone | + [...] | | Physical | Diagnoses | | Мария, | | | | Medicine and | Low back | Emmy-Cristin | Carlos Armijo MD | | | | Rehabilitatio | pain | i, | [address] | | | | n | | [place] | [address] | | | | | | , [address] | [place] | | | | | | [address] | [address] Phone: | | | | | | [place], | [phone] | | | | | | [place] | Fax: | | | | | | [address] | [phone] | | | | | | Phone: | | | | | | | [phone] | | | | | | | Fax: | | | | | | | [phone] | | +--------+--------+ + + + + Encounter Details +--------+---------+ + + + | Date | Type | Department | Care Team | Description | +--------+---------+ + + + | 01/04/ | Office | [facility] [place] | Carlos Hsieh | Fibromyalgia | | 2015 | Visit | PHYSIATRY [address] | T, [address] | (Primary Dx); S/P | | | | [address] | [address] [place]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; | | | | [place] | [address] | Chronic neck pain; | | | | [address] | | Chronic low back | | | | [phone] | | pain; Lumbar | | | [...] of the procedure you must provide a roll off driver to take you home. For all procedur es it is recommended that someone else drive you home. documented in this encounter Progress Notes Carlos Hsieh MD - 01/04/2015 8:13 AM PDT Carlos Hsieh MD [address] [facility], [address] [employer] [place], [place] [id number] FAX: PHYSICAL MEDICINE AND REHABILITATION H&P CHIEF COMPLAINT: Chief Complaint Patient presents with Neck Pain Neck pain that radiates between the shoulder blades and down from there HISTORY OF PRESENT ILLNESS: The patient is a 54 y.o. female being [facility] Booth for complaints of [...] were performed by a Dr. García in [place]. Th e patient is unable to take NSAID's because apparently last time she took them she was black and blue all over. PAST MEDICAL HISTORY: Past Medical History Diagnosis Date Diarrhea Osteoarthritis, generalized Migraine Osteopenia Obesity Syncope Hyperparathyroidism ([facility]) RLS (restless legs syndrome) OLIVER (obstructive sleep apnea) Depression COPD (chronic obstructive pulmonary disease) ([facility]) Fibromyalgia Peripheral neuropathy Chronic pain Benign essential hypertension Rheumatoid arthritis ([facility]) IBS (irritable bowel syndrome) Scoliosis Hypothyroidism Stroke ([facility]) Blind left eye Arthritis Osteoporosis [...] visit. ALLERGIES: Allergies Allergen Reactions Amitriptyline Hcl Iwzfqehaiz-Cmof-Hvtdonua Cephalexin Ciprofloxacin Clarithromycin Clindamycin Hcl Codeine Sulfate [...] has no apparent deficits with short or longterm memory. She has appropriate fund of knowledge [...] of the cervical spine next week at [facility]. The patient was informed to contact our [...] Pterona | | | | | | [facility] [address] | | | | | | [place] [address] | | | | | | [phone] | | | | | | | [...] radiculopathy ICD-9 Code 724.4 Belinda Basilio | [facility] | | Shefali presents to the fluoroscopy suite for [facility] | | fluoroscopically-guided bilateral L5-S1 transforaminal [...] ST. | [address] | [place] | [phone] | | [facility] | | [address] | | | - IMAGING | | [...]
--- OUTSIDE RECORDS SUMMARY | ~2020-02-29 | XMS | Encounter Summary ---
Demographics + + + | Address | [address] | | | [place] [address] | + + + | Home Phone [...] Team Providers + +------+ + | Care Heavy Equipment Operator Apprentice Name | Role | Phone | + +------+ + | Sulaiman Carrera MD | PCP | | + +------+ + Encounter Details +--------+ + + + + | Date | Type | Department | Care Team | Description | +--------+ + + + + | 08/26/ | Ancillary | Registration [id number] | | | | 2006 | Registratio | [address] | | | | | n | Peterson Mailcode: RPB07 | | | | | | [place], [place] | | | | | | [address] | | | | | | [phone] | | | +--------+ + + + [...]
--- OUTSIDE RECORDS SUMMARY | ~2020-02-29 | XMS | Encounter Summary ---
Demographics + + + | Address | [address] | | | [place] [address] | + + + | Home Phone [...] Team Providers + +------+ + | Care Picc Nurse Name | Role | Phone | [...] | | | | [address] [facility] | | | | | | [address] [place] | | | | | | [address] | | | | | | [phone] | | | +--------+ + + + [...] | | | | | | [address] [place] [address] [address] | | | | | | [place] [address] | | | | | | [phone] | | | | | | | | +--------+---------+ + + + documented as of this encounter Visit Diagnoses Not on filedocumented in this encounter"
--- OUTSIDE RECORDS SUMMARY | ~2020-02-29 | XMS | Encounter Summary ---
[...] Team Providers + +------+ + | Care Hydrologist Name | Role | Phone | + +------+ + | Maria Esther Cintron MD | PCP | | + +------+ + Reason for Visit + +--------+ + | Reason | Onset | Comments | | | Date | | + +--------+ + | Lab findings, | 08/30/ | 08/28/08 Lab results | | teaching, guidance, | 2008 | | | and counseling | | | + +--------+ + Encounter Details +--------+ + + + + | Date | Type | Department | Care Team | Description | +--------+ + + + + | 08/30/ | Telephone | [facility] | Chris Padgett, | Lab findings, | | 2008 | | [place] [address] | [address] | teaching, guidance, | | | | [address] Mailcode: CH[address]S | [facility] [address] | and counseling | | | | [facility] | [place], [place] | (08/28/08 Lab | | | | and Healing, | [address] | results) | | | | [place] [address] [facility] | [phone] | | | | | [place], [place] | | | | | | [address] | | | | | | [phone] | | | +--------+ + + + [...] Telephone Encounter - Zachary Sampson - 12/15/2011 9:57 AM PDTThis encounter has been admin istratively closed with the authorization of the [facility] Committee. elephone Encounter - Nuris Cardenas Rn - 09/01/2008 1:26 PM PDTNotified referral placed for hemorrhoids and order plac ed for EGD. Informed of lab results. elephone Encounter - Adriana Macedo - 08/30/2008 3:02 PM PDTBelinda maya calling to get lab results from 08/28/08. Also she wants Lolly Saenz To know that her PCP sugar l not authorize her a referral to [facility] for Hemorrhoids and she is not sure what to do or how she can get scheduled for her diagnosis. Pain Scale: na Recent Surgery or Procedure: yes-08/28/08 Pharmacy: Pharmacy Preferences: [address] [facility] Milly Horton [facility] [place] [phone] documented in this enc ounter Plan of Treatment Not on filedocumented as of this encounter Visit Diagnoses Not on filedocumented in this encounter"
--- OUTSIDE RECORDS SUMMARY | ~2020-02-29 | XMS | Encounter Summary ---
Demographics + + + | Address | [address] | | | [place] [address] | + + + | Home Phone [...] Team Providers + +------+ + | Care Renewable Energy Trader Name | Role | Phone | [...] as of this encounter Progress Notes Interface, Rv Repairer In - 07/03/2006 2:33 AM PST [id number] GEOVANNI Barnes 185016 Clinic Date: 06/24/2006 Clinic: Rheumatology Subjective: Belinda Meehan is a 46-year-old woman here for followup of fibromyalgia. She comes from [place] and is now also working with the [...] I will have a meeting soon with 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 Caitlin Rivera M.S., F.N.P. / [id number] / [id number] / [id number] / [id number] cc: [facility] Electronically signed by Caitlin Rivera 07-02-2006 11:27:56 AM documented in this encounter Plan of Treatment Not on filedocumented as of this encounter Visit Diagnoses Not on filedocumented in this encounter"
--- OUTSIDE RECORDS SUMMARY | ~2020-02-29 | XMS | Encounter Summary ---
Demographics + + + | Address | [address] | | | [place] [address] | + + + | Home Phone [...] Providers + +------+ + | Care Certified Hyperbaric Technician Name | Role | Phone | [...] as of this encounter Progress Notes Interface, Asp Net Programmer In - 12/07/2005 3:[address] [address] or January 31, 2003 Pedrito Gutierrez M.D. [address] [place] [address] RE: BELINDA MEEHAN MR #: [id number] Dear Dr. Gutierrez: I had the pleasure [...] She had surgery 5 days ago in [place] on her right hand and wrist, for [...] time to help minimize her travel to [place]. In the meantime, please feel free to contact me if you have other questions, concerns, or suggestions regarding her condition. Sincerely, Issac Meeks M.D. cost estimating clerk Division of Endocrinology, Diabetes, and Clinical Nutrition, Director of Metabolic Disorders Clinic PBD / [id number] / [id number] / [id number] / Tdocumented in this encounter Plan of Treatment Not on filedocumented as of this encounter Visit Diagnoses Not on filedocumented in this encounter"
--- OUTSIDE RECORDS SUMMARY | ~2020-02-29 | XMS | Encounter Summary ---
Demographics + + + | Address | [address] | | | [place] [address] | + + + | Home Phone [...] Team Providers + +------+ + | Care Steelscope Operator Name | Role | Phone | [...] | 02/17/ | Refill | [facility] [place] [facility] | Alanis, | Medication Refill | | 2018 | | [facility] [address] | MD [place] | | | | | [place], | [address] [place] | | | | | [place] [address] | [place] [address] | | | | | [phone] | [phone] | | | | | | | [...] | | | | | [place] [address] | | | | | | [phone] | | | | | | | | +--------+---------+ + + + documented as of this encounter Visit Diagnoses + + | Diagnosis | + + | Chest pain, unspecified type | + + documented in this encounter"
--- OUTSIDE RECORDS SUMMARY | ~2020-02-29 | XMS | Encounter Summary ---
Demographics + + + | Address | [address] | | | [place] [address] | + + + | Home Phone [...] Providers + +------+ + | Care Fish Frog Or Oyster Farmer Name | Role | Phone | [...] [place] | | | | | | [place], [place] | [facility] | | | | | | [address] | [address] | | | | | | | [place], [place] | | | | | | | [address] | | | | | | | Phone: | | | | | | | [phone] | | | | | | | Fax: | | | | | | | [phone] | +--------+--------+ + + + + Encounter Details +--------+---------+ + + + | Date | Type | Department | Care Team | Description | +--------+---------+ + + + | 06/23/ | Office | [facility] Comprehensive | Adrien Smith, | Fibromyalgia | | 2013 | Visit | Pain Center at | [address] [facility] | syndrome 729.1 | | | | [facility] | [facility] [id number] | (Primary Dx); LBP | | | | [address] | [place], [place] | (low back pain); | | | | [place] [facility] | [address] | Chronic Bilateral | | | | and Healing, | [phone] | Shoulder Pain; Post | | | | | | laminectomy | | | | Floor [place], [place] | | syndrome; Chronic | | | | [address] | | migraine | | | | [phone] | | | +--------+---------+ + + + [...] evaluation of a patient with fibromyalgia, the [facility] Fibromyalgia clinic suggests laboratory screening [...] suggests that fibromyalgia patients may have reduced PRIMARY CARE SALES REPRESENTATIVE opioid receptors (Reji is RE, et al. Decreased central mu-opioid receptor availability in fibromyalgia. J Neurosci . 27(37):94774-9, 2006Feb 24.) and there are no controlled [...] documented in our notes. ADRIEN SMITH MD Outside Sales, [facility] Acid Tank Liner, Pain Medicine Professor, Anesthesiology & Perioperative Medicine Desire Woodson Brandon - 06/23/2013 2:21 PM PST [facility] Return Visit with Dr. [...] before her lumbar surgeries and recently in [place]. She has short-term relief from thes e treatments. I would like her to return to see Dr. Adrien Smith to discuss these treatment options. Consult to [facility] physical therapy: A supervised physical [...] treated at the [facility] for back pain with the following [...] Overview Note: Surgery 05/15/08 Dr Ricky Garnett [place] JEY karlos to get operative reports Osteopenia [...] and a pain drawing which I reviewed. [facility] Brief [...] knee Lumbar fusion 05/2008, '11 & '12 L5-N9olzshz with bone spur removals Appendectomy Cholecystectomy section [...] Hives Mainly in the legs Clindamycin Codeine [place]-Wieqoamayq-Jrd-Caff Balance problems Fioricet W/Codeine (Bebzsvuqds-Pvgehbwxxf-Dlx-Cod) Keflex (Cephalexin) Morphine IM ( only in [facility]) made gut pain worse 08/27/06: Trial of oral MSIR caused leg swelling Penicillins Sulfa (Sulfonamide Antibiotics) Tramadol Ms. Meehan reports no side effects. The Review of Systems provided by Ms. Meehan and documented by the COORDINATE MEASURING MACHINE TECHNICIAN was reviewed. Austyn shelton comments: 1. BONES, [...] evaluation of a patient with fibromyalgia, the [facility] Fibromyalgia clinic suggests laboratory screening [...] suggests that fibromyalgia patients may have reduced PRIMARY CARE SALES REPRESENTATIVE opioid receptors (Xavi FRANK, et al. Decreased central mu-opioid receptor availability in fib romyalgia. J Neurosci. 27(37):62579-9, 2006Feb 24.) and there are no controlled [...]
--- OUTSIDE RECORDS SUMMARY | ~2020-02-29 | XMS | Encounter Summary ---
Demographics + + + | Address | [address] | | | [place] [address] | + + + | Home Phone [...] Providers + +------+ + | Care Engraver Pantograph Name | Role | Phone | + +------+ + | Pedrito Gutierrez MD | PCP | | + +------+ + Reason for Visit + +--------+ + | Reason | Onset | Comments | | | Date | | + +--------+ + | Erroneous Encounter | 10/03/ | | | - Disregard | 2009 | | + +--------+ + Encounter Details +--------+ + + + + | Date | Type | Department | Care Team | Description | +--------+ + + + + | 10/03/ | Telephone | [facility] Comprehensive | Miranda Lambert, | Erroneous Encounter | | 2009 | | Pain Center at | ANP | - Disregard | | | [facility] | | | | | | [address] | | | | | | [facility] | | | | | | and Healing, | | | | | | Building | | | | | | Floor [place], [place] | | | | | | [address] | | | | | | [phone] | | | +--------+ + + + [...] Miscellaneous Notes Telephone Encounter - Miranda Lambert ANP - 10/03/2009 5:41 PM PDTErroneous encounter documented in this e ncounter Plan of Treatment Not on filedocumented as of this encounter Visit Diagnoses Not on filedocumented in this encounter"
--- OUTSIDE RECORDS SUMMARY | ~2020-02-29 | XMS | Encounter Summary ---
Demographics + + + | Address | [address] | | | [place] [address] | + + + | Home Phone [...] Providers + +------+ + | Care Resident In Diagnostic Radiology Name | Role | Phone | + [...] Refill | | 2018 | | [facility] [address] | MD Petrona | | | | | [place], | [address] [place] | | | | | [place] [address] | [place] [address] | | | | | [phone] | [phone] | | | | | | | [...] AM PDTReceived fax from Tayo morelos in [place] for a refill of her ondansetron 4 [...] | | | | | [place] [address] | | | | | | [phone] | | | | | | | | +--------+---------+ + + + documented as of this encounter Visit Diagnoses + + | Diagnosis | + + | Nausea Nausea alone | + + documented in this encounter"
--- OUTSIDE RECORDS SUMMARY | ~2020-02-29 | XMS | Encounter Summary ---
Demographics + + + | Address | [address] | | | [place] [address] | + + + | Home Phone [...] Providers + +------+ + | Care Patient Partner Name | Role | Phone | + +------+ + | Petrona Thapa | PCP | | | MD | | | + +------+ + Encounter Details +--------+ + + + + | Date | Type | Department | Care Team | Description | +--------+ + + + + | 10/04/ | Documentati | [facility] | Alanis, | | | 2020 | on | MEDICINE [address] | MD Petrona | | | | | [address] [place], | [address] [facility] | | | | | [place] [address] | [place] [address] | | | | | [phone] | [phone] | | | | | | | [...] | | | | | [place] [address] | | | | | | [phone] | | | | | | | | +--------+---------+ + + + documented as of this encounter Visit Diagnoses Not on filedocumented in this encounter"
--- OUTSIDE RECORDS SUMMARY | ~2020-02-29 | XMS | Encounter Summary ---
Demographics + + + | Address | [address] | | | [place] [address] | + + + | Home Phone [...] Team Providers + +------+ + | Care Tier Lift Operator Name | Role | Phone | + +------+ + | Pedrito Gutierrez MD | PCP | | + +------+ + Encounter Details +--------+ + + + + | Date | Type | Department | Care Team | Description | +--------+ + + + + | 08/22/ | Hospital | Radiology/Imaging | | | | 2008 | Encounter | Lab at [facility] [address] | | | | | [address] [facility] | | | | | | Health and Healing, | | | | | | [place] [address], [facility] | | | | | | Floor [place], [place] | | | | | | [address] | | | | | | [phone] | | | +--------+ + + + [...]
--- OUTSIDE RECORDS SUMMARY | ~2020-02-29 | XMS | Encounter Summary ---
Demographics + + + | Address | [address] | | | [place] [address] | + + + | Home Phone [...] Providers + +------+ + | Care Vocational Teacher Name | Role | Phone | [...]
--- OUTSIDE RECORDS SUMMARY | ~2020-02-29 | XMS | Encounter Summary ---
Demographics + + + | Address | [address] | | | [place] [address] | + + + | Home Phone [...] Providers + +------+ + | Care Clerical Investigator Name | Role | Phone | + +------+ + | Pedrito Gutierrez MD | PCP | | + +------+ + Reason for Visit + +--------+ + | Reason | Onset | Comments | | | Date | | + +--------+ + | Follow-up visit | 11/11/ | | | | 2006 | | + +--------+ + Encounter Details +--------+---------+ + + + | Date | Type | Department | Care Team | Description | +--------+---------+ + + + | 11/11/ | Office | [facility] | Lukasz Charles, | Major Depressive | | 2006 | Visit | [address] | PhD [address] | Disorder, Recurrent | | | | Center for Health | [place], [place] | Episode, Moderate | | | | and Healing, | [address] | ([facility]); Left Knee | | | | Building | [phone] | Pain; Neck Pain; | | | | Floor [place], [place] | | 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 female with head, abdominal, back, and leg pain. She has sym ptoms of depression and anxiety along with her pain. She is having her niece visit this wee k. We discussed the need to pace herself [...] has using good self-care skil ls. Diagnosis: [place] I: 1. (296.32) Major depressive disorder, recurrent, moderate. 2. (309.24) Adjustment disorder with anxiety. 3. (307.89) Chronic pain disorder associated with both psychological factors and a gene ral medical condition. [place] II: Deferred [place] III: abdominal pain, migraine headache, low back pain. [place] IV: low finances [place] V: GAF 55-60 Plan: Return in 2 weeks. Check niece's visit, pacing, relaxation, activity, distraction. Contin ue cognitive/behavioral therapy. Total time spent with patient was approximately 45 minutes. LUKASZ CHARLES PHD [facility] [address] [place] [address] And [facility], [address] [place] [address] documented in this encount er Plan of Treatment + + +--------+ + + | Name | Type | Priori | Associated Diagnoses | Order Schedule | | | | ty | | | + + +--------+ + + | [facility], | Procedures | Routin | Major Depressive | Ordered: 11/11/2006 | | OFFICE (21-33) | | e | Disorder, Recurrent | | | | | | Episode, Moderate | | | | | | ([facility]) Left Knee | | | | | [...]
--- OUTSIDE RECORDS SUMMARY | ~2020-02-29 | XMS | Encounter Summary ---
Demographics + + + | Address | [address] | | | [place] [address] | + + + | Home Phone [...] Providers + +------+ + | Care Autism Teacher Name | Role | Phone | [...] | 2006 | Visit | [facility] | MD Darrion,PhD [address] | Deconditioning; | | | | for Health and | [address] | Physical | | | | Healing [address] | [place], [place] | Deconditioning | | | | [facility] | [address] | | | | | Health and Healing, | [phone] | | | | | | | | | | | Floor [place], [place] | | | | | | [address] | | | | | | [phone] | | | +--------+---------+ + + + [...] and neurology assessment. Angel Morales M.D., Ph.D. Hydrogenation Operator, Surgical Guide [facility] Department of Orthopedics [email or web address] documented in this encou nter Plan [...]
--- OUTSIDE RECORDS SUMMARY | ~2020-02-29 | XMS | Encounter Summary ---
Demographics + + + | Address | [address] | | | [place] [address] | + + + | Home Phone [...] Providers + +------+ + | Care Tire Trimmer Hand Name | Role | Phone | + +------+ + PCP | Unavailable | + +------+ + Encounter Details +--------+ + + + + | Date | Type | Department | Care Team | Description | +--------+ + + + + | 07/30/ | Hospital | [facility] | Ulysses Genao MD | | | 2011 - | Encounter | MED CTR OP REHAB | [address] [place] | | | | | [address] [place] | [address] [place] | | | / | | [place] [address] | [address] | | | 2011 | | [phone] | | | +--------+ + + + [...] | | | | | [place] [address] | | | | | | [phone] | | | | | | | | +--------+---------+ + + + documented as of this encounter Visit Diagnoses Not on filedocumented in this encounter"
--- OUTSIDE RECORDS SUMMARY | ~2020-02-29 | XMS | Encounter Summary ---
Demographics + + + | Address | [address] | | | [place] [address] | + + + | Home Phone [...] Team Providers + +------+ + | Care Proofsheet Corrector Name | Role | Phone | + +------+ + | Petrona Thapa | PCP | | | MD | | | + +------+ + Reason for Visit + +--------+ + | Reason | Onset | Comments | | | Date | | + +--------+ + | Medication Refill | 09/21/ | | | | 2020 | | + +--------+ + Encounter Details +--------+--------+ + + + | Date | Type | Department | Care Team | Description | +--------+--------+ + + + | 09/21/ | Refill | [facility] | Alanis, | Medication Refill | | 2019 | | MEDICINE [address] | MD Petrona | | | | | [place], | [address] [place] | | | | | [place] [address] | [place] [address] | | | | | [phone] | [phone] | | | | | | | [...] | | | | | [place] [address] | | | | | | [phone] | | | | | | | | +--------+---------+ + + + documented as of this encounter Visit Diagnoses Not on filedocumented in this encounter"
--- OUTSIDE RECORDS SUMMARY | ~2020-02-29 | XMS | Encounter Summary ---
Demographics + + + | Address | [address] | | | [place] [address] | + + + | Home Phone [...] Providers + +------+ + | Care Mold Holder Name | Role | Phone | + +------+ + | Pedrito Gutierrez MD | PCP | | + +------+ + Encounter Details +--------+ + + + + | Date | Type | Department | Care Team | Description | +--------+ + + + + | 05/20/ | Telephone | [facility] | Rohan Foley MD | | | 2005 | | [place] [address] [address] | | | | | | [facility] | | | | | | for Health and | | | | | | Healing, [address] | | | | | | [place], [place] | | | | | | [address] | | | | | | [phone] | | | +--------+ + + + [...]
--- OUTSIDE RECORDS SUMMARY | ~2020-02-29 | XMS | Encounter Summary ---
Demographics + + + | Address | [address] | | | [place] [address] | + + + | Home Phone [...] Team Providers + +------+ + | Care Drip Pumper Name | Role | Phone | [...] + + | 03/05/ | Telephone | [facility] | Alanis, | Vomiting | | 2017 | | MEDICINE [address] | MD [place]rona | | | | | [place], | [address] [facility] | | | | | [place] [address] | [place] [address] | | | | | [phone] | [phone] | | | | | | | [...] on the . Called Tayo Mcdonough in [facility] and spoke to Jung letting him know that we are n ot submitting a PA request at this time since patient is following up with Dr. Vivas. [facility]. TTelephone Encounter - Mayda Montoya - 03/10/2018 4:46 PM PDTReceived prior auth request [facility] regarding Phenadoz (promethazine). Noted on [...] Tayo Mcdonough in [place] and spoke with [employer] [facility] [employer]. Both the Zofran and Phenergan suppository orders [...] back . Patient can be reached at [phone] signed by Sia Bai at 03/05/2018 12:24 [...] she we nt to the ER at [facility] yesterday by ambulance due to severe N/V, [...] | | | | | [place] [address] | | | | | | [phone] | | | | | | | | +--------+---------+ + + + documented as of this encounter Visit Diagnoses Not on filedocumented in this encounter"
--- OUTSIDE RECORDS SUMMARY | ~2020-02-29 | XMS | Encounter Summary ---
Demographics + + + | Address | [address] | | | [place] [address] | + + + | Home Phone [...] Team Providers + +------+ + | Care Double Head Machine Operator Name | Role | Phone [...] Rd | | | | | | [place], [place] | | | | | | [address] | | | +--------+ + + + [...]
--- OUTSIDE RECORDS SUMMARY | ~2020-02-29 | XMS | Encounter Summary ---
Demographics + + + | Address | [address] | | | [place] [address] | + + + | Home Phone [...] Providers + +------+ + | Care Instructional Services Librarian Name | Role | Phone | [...]
--- OUTSIDE RECORDS SUMMARY | ~2020-02-29 | XMS | Encounter Summary ---
Demographics + + + | Address | [address] | | | [place] [address] | + + + | Home Phone [...] Providers + +------+ + | Care Program Manager Rn Name | Role | Phone | [...] | | | [facility] | [place], [place] | | | | | [address] | [address] | | | | | [address] | [phone] | | | | | Physician's Pavilion | | | | | | Physician's | | | | | | Pavilion [place], | | | | | | [place] [address] | | | | | | [phone] | | | +--------+--------+ + + + [...]
--- OUTSIDE RECORDS SUMMARY | ~2020-02-29 | XMS | Encounter Summary ---
[...] Providers + +------+ + | Care Photo Cartographer Name | Role | Phone | + [...] | | [facility] | [address] [facility] | | | | | [facility] | [address] [place], | | | | | [address] | [place] [address] | | | | | [address] | [phone] | | | | | Physician's | | | | | | Pavilion, 1st floor | | | | | | [place], [place] | | | | | | [address] | | | | | | [phone] | | | +--------+ + + + [...] 9:34 AM PDTBone density interpretation documented in is encounter Procedure Marco Antonio Rios - 08/24/2007 10:12 AM PDTAssociated Order(s): BONE DENSITOMETRY documented in this enc ounter Plan of Treatment + +---------+--------+ + + [...]
--- OUTSIDE RECORDS SUMMARY | ~2020-02-29 | XMS | Encounter Summary ---
Demographics + + + | Address | [address] | | | [place] [address] | + + + | Home Phone [...] Team Providers + +------+ + | Care Mesh Worker Name | Role | Phone | + +------+ + | Pedrito Gutierrez MD | PCP | | + +------+ + Reason for Visit + +--------+ + | Reason | Onset | Comments | | | Date | | + +--------+ + | Follow-up Diabetic | 08/18/ | | | Assessment | 2006 | | + +--------+ + Encounter Details +--------+ + + + + | Date | Type | Department | Care Team | Description | +--------+ + + + + | 08/18/ | Telephone | [facility] Comprehensive | Miranda Lambert, | Follow-up Diabetic | | 2006 | | Pain Center at | ANP | Assessment | | | | [facility] | | | | | | [address] | | | | | | [facility] | | | | | | and Healing, | | | | | | Building | | | | | | [place], [place] | | | | | | [address] | | | | | | [phone] | | | +--------+ + + + [...] this encounter Miscellaneous Notes Telephone Encounter - Roula Trinidady - 08/18/2006 9:52 AM Jessica called to advise "gagan francois I got up this morning my ankles and lower legs are huge and swollen. I called my PCP an d he refuses to see me and told me to contact the Pain Center." Per our discussion I advise d the patient to discontinue her MSIR 15mg tab 1 q 4-6 hrs and we will call in a prescriptio n for Ruth 10/325 tab 1 po q 4 hrs NTE 5qd. She is scheduled to see you in f/u August 26. documented in this encou nter Plan of Treatment Not on filedocumented as of this encounter Visit Diagnoses Not on filedocumented in this encounter
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
--- OUTSIDE RECORDS SUMMARY | ~2020-02-29 | XMS | Encounter Summary ---
Demographics + + + | Address | [address] | | | [place] [address] | + + + | Home Phone [...] Team Providers + +------+ + | Care Method Consultant Name | Role | Phone | [...] [address] | | | | | | [facility] | | | | | | [place], [place] | | | | | | [address] | | | | | | [phone] | | | +--------+ + + + [...] today when I was over at the restaurant floor manager after I fell, and he wouldn't listen". 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 No c-s ttp. No head lacs [...]
--- OUTSIDE RECORDS SUMMARY | ~2020-02-29 | XMS | Encounter Summary ---
Demographics + + + | Address | [address] | | | [place] [address] | + + + | Home Phone [...] Providers + +------+ + | Care Railroad Hand Name | Role | Phone | + +------+ + PCP | Unavailable | + +------+ + Encounter Details +--------+ + + + + | Date | Type | Department | Care Team | Description | +--------+ + + + + | 08/11/ | Hospital | [facility] | Ruben Tobias | | | 2001 | Encounter | MED CTR SLEEP | MD Raj[address] | | | | | [place] [address] | [address] [place] | | | | | [place], [place] | [place] [address] | | | | | [address] | [phone] | | | | | [phone] | | | +--------+ + + + [...] | | | | | [place] [address] | | | | | | [phone] | | | | | | | | +--------+---------+ + + + documented as of this encounter Visit Diagnoses Not on filedocumented in this encounter"
--- OUTSIDE RECORDS SUMMARY | ~2020-02-29 | XMS | Encounter Summary ---
Demographics + + + | Address | [address] | | | [place] [address] | + + + | Home Phone [...] Providers + +------+ + | Care Master Lay Out Specialist Name | Role | Phone | [...] + + | 01/21/ | Telephone | [facility] | Alanis, | Pain | | 2019 | | MEDICINE [address] | MD [place] | | | | | [place], | [address] | | | | | [place] [address] | [place] [address] | | | | | [phone] | [phone] | | | | | | | [...] She can go to the ER at [facility] elephone Encounter - Maggie Montoya LPN - [...] at 01/21/2019 9:56 AM PDTTelephone Encounter - Esperanza Cantor - 01/21/2019 8:13 AM PDTPatient called wanting to speak with the nurse stating it was "kind of urgent." She stated she is having some pain in the area where she had surgery about a year ago and it is getting worse but gave no other information. Please call patient to advise. documented i n this encounter Plan of [...] | | | | | [place] [address] | | | | | | [phone] | | | | | | | | +--------+---------+ + + + documented as of this encounter Visit Diagnoses Not on filedocumented in this encounter
--- OUTSIDE RECORDS SUMMARY | ~2020-02-29 | XMS | Encounter Summary ---
Demographics + + + | Address | [address] | | | [place] [address] | + + + | Home Phone [...] Providers + +------+ + | Care Piano Assembler Name | Role | Phone | [...] | | escu | [address] | [address] Phone: | | | | | Procedures | [place], | [phone] | | | | | OFFICE VISIT | [place] | Fax: | | | | | REGULAR | [address] | [phone] | | | | | | Phone: | | | | | | | [phone] | | | | | | | Fax: | | | | | | | [phone] | | +--------+--------+ + + + + Encounter Details +--------+---------+ + + + | Date | Type | Department | Care Team | Description | +--------+---------+ + + + | 12/07/ | Office | [facility] | Ulysses Dsouza MD | BPPV (benign | | 2015 | Visit | OTOLARYNGOLOGY [address] | [address] | paroxysmal | | | | [address] | [address] [place], [place] | positional vertigo), | | | | [place] | [address] | left (Primary Dx); | | | | [address] | | Vertigo of central | | | | [phone] | | origin, left | +--------+---------+ + [...] MD - 12/07/2014 1:48 PM PDT [facility] OTOLARYNGOLOGY [address] [place] [address] OFFICE NOTE ULYSSES DSOUZA MD Patient: BELINDA MEEHAN Admitting: MR #: [id number] LOC: PT TYPE: Adm Date: 12/07/2014 : 1960 DATE OF VISIT: 12/07/2014. The patient is having a tremendous problem with her balance. At times she gets a spinning type sensation, other times she just tends to fall down and recently she has developed a w rist drop on the right arm. She has seen an orthopedist who put her in a splint. [facility] has completed an MRI scan and [...] there is a question of a [facility]. The patient would repeatedly ask the [...] 13:48:42 Transcribed on 12/08/2014 04:46:49 by [facility] job# [id number] Confirmation #: [id number] signed by Ulysses Dsouza MD at 12/08/2014 8:52 AM Ulysses Arnold MD - 12/07/2014 1:43 PM PDTSee dictation #[id number] signed by Dmitriy Dsouza MD at 12/07/2014 [...] | | | | [address] [facility] | | | | | | [place] [address] | | | | | | [phone] | | | | | | | | +--------+---------+ + + + documented as of this encounter Visit Diagnoses + + | Diagnosis | + + | BPPV (benign paroxysmal positional vertigo), left - Primary | + + | Vertigo of central origin, left | + + documented in this encounter
--- OUTSIDE RECORDS SUMMARY | ~2020-02-29 | XMS | Encounter Summary ---
Demographics + + + | Address | [address] | | | [place] [address] | + + + | Home Phone [...] Providers + +------+ + | Care Energy Economist Name | Role | Phone | + [...] + + | 08/14/ | Refill | [facility] | Alanis, | Medication Refill | | 2019 | | MEDICINE [address] | MD [place] | | | | | [place], | [address] [facility] | | | | | [place] [address] | [place] [address] | | | | | [phone] | [phone] | | | | | | | [...] | | | | | [place] [address] | | | | | | [phone] | | | | | | | | +--------+---------+ + + + documented as of this encounter Visit Diagnoses Not on filedocumented in this encounter"
--- OUTSIDE RECORDS SUMMARY | ~2020-02-29 | XMS | Encounter Summary ---
Demographics + + + | Address | [address] | | | [place] [address] | + + + | Home Phone [...] Providers + +------+ + | Care Bar Examiner Name | Role | Phone | [...] | | | | | | [place], | | | | | | | [place] | | | | | | | [address] | | | | | | | Phone: | | | | | | | [phone] | | | | | | | Fax: | | | | | | | [phone] | +--------+--------+ + + + + Encounter Details +--------+---------+ + + + | Date | Type | Department | Care Team | Description | +--------+---------+ + + + | 11/10/ | Office | [facility] | Chris Padgett, | Status Post | | 2007 | Visit | [place] [address] | [address] | Bariatric Surgery; | | | | Ave Mailcode: CH4S | [address] | Abdominal Pain, | | | | Center [facility] | [place], [place] | Other Specified Site | | | | and Healing, | [address] | | | | | Building | [phone] | | | | | Floor [place], [place] | | | | | | [address] | | | | | | [phone] | | | +--------+---------+ + + + [...]
--- OUTSIDE RECORDS SUMMARY | ~2020-02-29 | XMS | Encounter Summary ---
Demographics + + + | Address | [address] | | | [place] [address] | + + + | Home Phone [...] Providers + +------+ + | Care Wheel Lacer And Truer Name | Role | Phone | + [...] Pavilion | | | | | | [place], [place] | | | | | | [address] | | | | | | [phone] | | | +--------+ + + + [...] able to ween down?: Yes Can you roll picker the script if need to or should it be mailed?: Pick-up/mail Mail please to [place] address listed in [facility] Pharmacy: Pharmacy Preferences: [facility] Milly Horton [address] [facility] [place], [place] [id number] documented in this encounter Plan of Treatment Not on filedocumented as of this encounter Visit Diagnoses + + | Diagnosis | + + | 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
--- OUTSIDE RECORDS SUMMARY | ~2020-02-29 | XMS | Encounter Summary ---
Demographics + + + | Address | [address] | | | [place] [address] | + + + | Home Phone [...] Team Providers + +------+ + | Care Networking Technology Instructor Name | Role | Phone | [...] | | | | | | [address] [place], [place] | | | | | | [address] | | | | | | [phone] | | | +--------+ + + + [...]
--- OUTSIDE RECORDS SUMMARY | ~2020-02-29 | XMS | Encounter Summary ---
Demographics + + + | Address | [address] | | | [place] [address] | + + + | Home Phone [...] Providers + +------+ + | Care Risk Control Consultant Name | Role | Phone | [...] as of this encounter Progress Notes Interface, Renal Case Manager In - 01/12/2006 1:16 AM PDTCLINIC DATE: 05/24/2002 NEUROMUSCULAR CLINIC [facility] CARE PROVIDER: Pedrito Gutierrez M.D., [place], [place]. REFERRING PROVIDER : Issac Meeks M.D., [facility] Endocrinology. REASON FOR CONSULTATION: Dr. [...] has some mild associated weakness in her tray server. She was told she had carpal tunnel [...] use drugs. 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 She is applying for disability compensation. She lives in [place] and is currently undergoing a divorce. [...] position sense throughout. Coordination: Fine finger movements, mixvpm-qv-tgtn, rapid alternating movements, and czir-lh-mopw maneuvers are intact though oqhzct-bx-nkpv is limited by poor depth perception due [...] Pete M.D. Neurology/Neuromuscular Fellow [employer] / SHARIF [id number] / [id number] / [id number] / cc: Issac Meeks M.D. [facility] Endocrinology Pedrito Gutierrez M.D. [address] [place] [id number] signed by Interface, Renal Case Manager In at 01/12/2006 1:1 6 AM PDTdocumented in this encounter Plan of Treatment Not on filedocumented as of this encounter Visit Diagnoses Not on filedocumented in this encounter
--- OUTSIDE RECORDS SUMMARY | ~2020-02-29 | XMS | Encounter Summary ---
Demographics + + + | Address | [address] | | | [place] [address] | + + + | Home Phone [...] Providers + +------+ + | Care Map And Chart Mounter Name | Role | Phone | [...] | | | | Clinical Nutrition | [place], [place] | | | | | [address] | [address] | | | | | Loop Mailcode: OPC5 | [phone] | | | | | Outpatient Clinic | | | | | | [facility] | | | | | | [place] [address] | | | | | | [phone] | | | +--------+ + + + [...] | + + + + + | [facility] | [address] | [place] [address] | | | LABORATORY | | | [...] + + + | [facility] | [address] | [place] [address] | | | LABORATORY | | | [...] | + + + + + | [facility] | [address] | [place] [address] | | | LABORATORY | | | | + + + + + documented in this encounter Visit Diagnoses Not on filedocumented in this encounter"
--- OUTSIDE RECORDS SUMMARY | ~2020-02-29 | XMS | Encounter Summary ---
Demographics + + + | Address | [address] | | | [place] [address] | + + + | Home Phone [...] + +------+ + | Care Environmental Services Tech Name | Role | Phone [...] + | 06/21/ | Office | [facility] | Delfina Lambert, | LBP (Low Back Pain) | | 2008 | Visit | Pain Center at | ANP | (Primary Dx); Spinal | | | | [facility] | | Fusion Lumbar spine | | | | [address] | | ; Hx Arthroplasty | | | | Center for [facility] | | of both Knees; | | | | and Healing, | | Fibromyalgia | | | | | | syndrome 729.1; | | | | Floor [place], [place] | | Abdominal Pain, | | | | [address] | | dumping syndrome Hx | | | | [phone] | | of gastric bypass; | | [...] Instructions Patient Instructions Delfina Lambert ANP - 06/21/2008 10:03 AM PSTTrial of [...] encounter Progress Notes Delfina Lambert ANP - 06/21/2008 9:36 AM PSTFormatting of this note might be different fr om the original. 06/21/2008 Belinda Meehan is a 48 y.o. female [facility] [...] removal on 05/15/2008 Dr. Betty Thomas MD [facility], after having problems with nu mbness, burning stingling pain in right leg developed in april. She reports walking schuyler r however feels she has lost strength but has regained normal feeling int he right leg. Expectations for this visit include: discuss medication prescribing needs. She reports Dr Esperanza toldeo is not willing to increase her opioid [...] a migraine sp ecialist this week in [place], Dr Lucio Nichols. Next area of chronic [...] drawing has be completed, which I reviewed. [facility] Brief Pain Inventory: (ten= worst possible [...] 3. Mental Health care: Dr Ogden psychology [facility] last visit today . She [...] 300 mg) by oral route once daily omaxyfohoh-ctopbaytnzkzl-sjiwvvix (FIORICET) 50-325-40 mg Oral Tablet take 2 [...] 278 01/18 Paniculectomy Hx lumbar fusion 05/2008 L1-W5jevnfb with bone spur removals Family History Problem [...] psychologist when ever sh e comes to [place] for medical care. She has a strong [...] [facility] Mail code CH 4P [facility] and [address] [place] [address] Ty Mendez - 12/2008 9:11 AM PSTCMA History: PMH/PSH/SH/FH review Patient had lumbar fusion in May 22. She also reports tooth abcess. She has script for an tibiotic tx waiting for her in [place]. 1. Has your pain changed from your [...] medication prescribing. documented in this encounte r Miscellaneous Notes Scan - Other, Faculty - 07/06/2008 7:47 AM PST can - Other, Faculty - 06/27/2008 3:31 PM PST Electronicvera harrisy signed by Gallo Matthews In at 06/27/2008 3:31 PM PSTdocumented in this encounter Plan of [...]
--- OUTSIDE RECORDS SUMMARY | ~2020-02-29 | XMS | Encounter Summary ---
Demographics + + + | Address | [address] | | | [place] [address] | + + + | Home Phone [...] Providers + +------+ + | Care Policy Service Coordinator Name | Role | Phone [...] as of this encounter Progress Notes Interface, Clergy Member In - 01/12/2005 10:09 AM PDT [id number] [facility] Date: 12/12/2004 Clinic: Endocrinology [...] cushion which I have ordered today through [employer], phone #[phone] and fax #[phone]. Today, the patient will monitor the decubiti closely and will be in touch with myself and her other physician depending on the progress. She also still has [address], which may be removed in one or two weeks when she returns to the Surgery Clinic at [facility]. Beto Meeks M.D. PD / HS [id number] / [id number] / [id number] / [id number] cc: Chris Padgett M.D. documented i n this encounter Plan of Treatment Not on filedocumented as of this encounter Visit Diagnoses Not on filedocumented in this encounter"
--- OUTSIDE RECORDS SUMMARY | ~2020-02-29 | XMS | Encounter Summary ---
Demographics + + + | Address | [address] | | | [place] [address] | + + + | Home Phone [...] + +------+ + | Care Edger Machine Setter Name | Role | Phone [...] + + | 11/09/ | Telephone | [facility] | Alanis, | Medical Problem | | 2018 | | MEDICINE [address] | MD [place] | | | | | [place], | [address] [facility] | | | | | [place] [address] | [place] [address] | | | | | [phone] | [phone] | | | | | | | [...] Telephone Encounter - Maggie Montoya LPN - 11/09/2018 9:25 AM PDTReceived call [...] | | | | | [place] [address] | | | | | | [phone] | | | | | | | | +--------+---------+ + + + documented as of this encounter Visit Diagnoses Not on filedocumented in this encounter"
--- OUTSIDE RECORDS SUMMARY | ~2020-02-29 | XMS | Encounter Summary ---
Demographics + + + | Address | [address] | | | [place] [address] | + + + | Home Phone [...] + | 05/28/ | Telephone | [facility] | Alanis, | Pain Management | | 2016 | | [facility] [address] | MD [place] | | | | | [place], | [address] | | | | | [place] [address] | [place] [address] | | | | | [phone] | [phone] | | | | | | | [...] to drive all the way to the [facility] and was told by her insurance that there was a clinic [facility]. I inf ormed her that she would need to call them to see if they would accept her insurance since s he was from [place] and prescribe medications. She has a follow up appt with on 06/01/17 to discuss. elephone En mauro - Maylin Sky - 05/28/2017 11:04 AM PSTContact/Caller: Belinda Contact Number: [phone] Provider/Nurse: Emmy Reason for Call: Patient is [...] [place] | | | | | | [facility] [address] | | | | | | [place] [address] | | | | | | [phone] | | | | | | | | +--------+---------+ + + + documented as of this encounter Visit Diagnoses Not on filedocumented in this encounter"
--- OUTSIDE RECORDS SUMMARY | ~2020-02-29 | XMS | Encounter Summary ---
Demographics + + + | Address | [address] | | | [place] [address] | + + + | Home Phone [...] Providers + +------+ + | Care Digital Experience Manager Name | Role | Phone | [...] Pavilion | | | | | | [place], [place] | | | | | | [address] | | | | | | [phone] | | | +--------+ + + + [...] - 01/03/2009 2:11 PM PDTCalled [facility] to [facility]. Images reviewed with [...]
--- OUTSIDE RECORDS SUMMARY | ~2020-02-29 | XMS | Encounter Summary ---
Demographics + + + | Address | [address] | | | [place] [address] | + + + | Home Phone [...] Team Providers + +------+ + | Care Cd Technician Name | Role | Phone | [...] + + | 07/27/ | Telephone | [facility] INTER[facility] | Alanis, | Other | | 2019 | | MEDICINE [address] | MD [place] | | | | | [place], | [address] [facility] | | | | | [place] [address] | [place] [address] | | | | | [phone] | [phone] | | | | | | | [...] receive a incontinence supplies from a new company called [employer]? Instructed tristen de to call the company and have them fax our office the form to be completed. Fax # given elephone Encounter - Rebekah Williamson - 07/27/2019 11:01 AM PSTPatient would like to speak to the nurse. Patient wo valentina not go in detail. Please advise 11: 02 AM PSTdocumented in this encounter Plan of Treatment +--------+---------+ + + + | Date | Type | Specialty | Care Team | Description | +--------+---------+ + + + | 05/17/ | Office | Internal Medicine | Alanis, | | | 2019 | Visit | | MD [place] | | | | | | [facility] [address] | | | | | | [place] [address] | | | | | | [phone] | | | | | | | | +--------+---------+ + + + documented as of this encounter Visit Diagnoses Not on filedocumented in this encounter"
--- OUTSIDE RECORDS SUMMARY | ~2020-02-29 | XMS | Encounter Summary ---
Demographics + + + | Address | [address] | | | [place] [address] | + + + | Home Phone [...] Team Providers + +------+ + | Care Sail Repair Person Name | Role | Phone | [...] | | | [facility] | [place], [place] | | | | | [address] | [address] | | | | | [address] | [phone] | | | | | Physician's | | | | | | Pavilion, [facility] floor | | | | | | [place], [place] | | | | | | [address] | | | | | | [phone] | | | +--------+ + + + [...] by | | | | | | [facility] | | | | | | [facility]. | | | | + + + + + + + + | Specimen | + + | | + + + + + + + | Performing | Address | City/State/Zipcode | Phone Number | | Organization | | | | + + + + + | [facility] | [address] | [place] [address] | | | LABORATORY | | | [...] pg/mL | | | | | [facility] [...] | [facility] | [address] | [place] [address] | | | LABORATORY | | | [...] [facility] DEPARTMENT OF | [address] [facility] | [place] [address] | | | PATHOLOGY | [address] | | | + + + + + | [facility] DEPARTMENT OF | [address] | [place] [address] | | | PATHOLOGY | [address] | | | + + + + + documented in this encounter Visit Diagnoses Not on filedocumented in this encounter"
--- OUTSIDE RECORDS SUMMARY | ~2020-02-29 | XMS | Encounter Summary ---
Demographics + + + | Address | [address] | | | [place] [address] | + + + | Home Phone [...] Providers + +------+ + | Care General Cargo Clerk Name | Role | Phone | [...] [address] | | | | | | [place], [place] | | | | | | [address] | | | | | | [phone] | | | +--------+ + + + [...] refills, last refills were 01/11 Electronically sig yesenia by Ailyn Wyatt at 01/26/2007 2:55 PM PDTdocumented in this encounter Plan of Treatment Not on filedocumented as of this encounter Visit Diagnoses Not on filedocumented in this encounter"
--- OUTSIDE RECORDS SUMMARY | ~2020-02-29 | XMS | Encounter Summary ---
Demographics + + + | Address | [address] | | | [place] [address] | + + + | Home Phone [...] Providers + +------+ + | Care Project Officer Name | Role | Phone | + +------+ + | Petrona Thapa | PCP | | | MD | | | + +------+ + Reason for Visit + +--------+ + | Reason | Onset | Comments | | | Date | | + +--------+ + | Medication Refill | 04/29/ | | | Assistance | 2018 | | + +--------+ + Encounter Details +--------+ + + + + | Date | Type | Department | Care Team | Description | +--------+ + + + + | 04/29/ | Telephone | [facility] INTER[facility] | Alanis, | Medication Refill | | 2017 | | MEDICINE [address] | MD [place] | Assistance | | | | [place], | [address] [facility] | | | | | [place] [address] | [place] [address] | | | | | [phone] | [phone] | | | | | | | [...] Telephone Encounter - Maggie Montoya LPN - 04/29/2018 4:48 PM PSTPatient was trying to get early refill but after checking her pill bottle she had 5 tabs left. I advised her to call the pharmacy on 05/08/18 when this is ok to refill. Insurance will only approve 9 tabs/day elephone Encounter - Mary Kay Perez - 04/29/2018 4:22 PM PSTPatient called and states her insurance will not a llow refill of imitrex. Stating it is too soon. Patient last refilled this on 04/08/18. Katelynn leon advise. documented in this encounter Plan of [...] | | | | | [place] [address] | | | | | | [phone] | | | | | | | | +--------+---------+ + + + documented as of this encounter Visit Diagnoses Not on filedocumented in this encounter"
--- OUTSIDE RECORDS SUMMARY | ~2020-02-29 | XMS | Encounter Summary ---
Demographics + + + | Address | [address] | | | [place] [address] | + + + | Home Phone [...] Team Providers + +------+ + | Care Blade Aligner Name | Role | Phone | [...] | Diabetes and | [address] | | | | | Clinical Nutrition | [place], [place] | | | | | [address] | [address] | | | | | Loop Mailcode: OPC5 | [phone] | | | | | Outpatient Clinic | | | | | | [facility] | | | | | | [place] [address] | | | | | | [phone] | | | +--------+ + + + [...] OF | [address] | [place] [address] | | | PATHOLOGY | [address] | | | + + + + + | [facility] DEPARTMENT OF | [address] | [place] [address] | | | PATHOLOGY | [address] [...] HEALTH CENTER | [address] | [place] [address] | | | PATHOLOGY | [address] | | | + + + + + | [facility] | [address] [place] [address] [address] | [place] [address] | | | PATHOLOGY | [address] | | | + + + + + documented in this encounter Visit Diagnoses Not on filedocumented in this encounter"
--- OUTSIDE RECORDS SUMMARY | ~2020-02-29 | XMS | Encounter Summary ---
Demographics + + + | Address | [address] | | | [place] [address] | + + + | Home Phone [...] Providers + +------+ + | Care Vacuum Tank Tender Name | Role | Phone [...] of this encounter Progress Notes Interface, Dental Laboratory Manager In - 01/21/2006 1:09 AM [facility] [place] [address] [address] or March 15, 2002 Pedrito Gutierrez M.D. [facility] [address] [place] [address] RE: BELINDA MEEHAN MR #: [id number] Dear Dr. Gutierrez: I had the pleasure [...] to set her up to see a microsoft dynamics consultant in Neurology or the [facility] [...] to contact me. Sincerely, Issac Meeks M.D. cuff slitter Division of Endocrinology, Diabetes, and Clinical Team Supervisor of Metabolic Disorders Clinic MONIQUE / SHARIF [id number] / [id number] / [id number] / Tdocumented in this encounter Plan of Treatment Not on filedocumented as of this encounter Visit Diagnoses Not on filedocumented in this encounter"
--- OUTSIDE RECORDS SUMMARY | ~2020-02-29 | XMS | Encounter Summary ---
Demographics + + + | Address | [address] | | | [place] [address] | + + + | Home Phone [...] Providers + +------+ + | Care Public Relations Senior Associate Name | Role | Phone | [...] + + | 12/20/ | Office | [facility] | Ulysses Genao MD | Meniere's disease of | | 2019 | Visit | OTOLARYNGOLOGY [address] | [address] | right ear (Primary | | | | [address] [facility] [address] | [address] [place] | Dx); Benign | | | | [place] | [address] | paroxysmal | | | | [address] | | positional vertigo, | | | | [phone] | | unspecified | | | | [...] sched uled for a Tayler maneuver in [place]. Extended time was spent with the patient.Electronic [...] | | | | | [place] [address] | | | | | | [phone] | | | | | | | | +--------+---------+ + + + documented as of this encounter Visit Diagnoses + + | Diagnosis | + + | Meniere's disease of right ear - Primary Meniere's disease, unspecified | + + | Benign paroxysmal positional vertigo, unspecified laterality | + + documented in this encounter
--- OUTSIDE RECORDS SUMMARY | ~2020-02-29 | XMS | Encounter Summary ---
Demographics + + + | Address | [address] | | | [place] [address] | + + + | Home Phone [...] Providers + +------+ + | Care Motorcycle Fabricator Name | Role | Phone | [...] | | | | [place], | [address] Phone: | | | | | | [place] | [phone] | | | | | | [address] | Fax: | | | | | | Phone: | [phone] | | | | | | [phone] | | | | | | | Fax: | | | | | | | [phone] | | +--------+ + + + + + Encounter Details +--------+ + + + + | Date | Type | Department | Care Team | Description | +--------+ + + + + | 12/20/ | Off-Site | [facility] | Alanis, | Follow up (Primary | | 2020 | Visit | AUDIOLOGY AND | MD [place] | Dx); Temoierejnnifer's | | | | [facility] | [address] [facility] | disease, unspecified | | | | [address] | [place] [address] | laterality | | | | [address] [facility] | [phone] | | | | | [place] [address] | | | | | | [phone] | Elisabet Munson, | | | | | | CCC-A [address] | | | | [address] [facility] | | | | | | [place] [address] | | | | | | [phone] | | | | | | | [...] | | | | | | [address] [facility] [place] | | | | | | [place] [address] | | | | | | [phone] | | | | | | | [...]
--- OUTSIDE RECORDS SUMMARY | ~2020-02-29 | XMS | Encounter Summary ---
Demographics + + + | Address | [address] | | | [place] [address] | + + + | Home Phone [...] Providers + +------+ + | Care Molder Machine Tender Name | Role | Phone [...] | Vertigo | Emmy-Cristin | MD [address] | | | Required | | Procedures | i, | [address] | | | | | 6/7 MODA | Sulaiman-Russell | [address] [place] | | | | | PENDING | MD [address] | [place] | | | | | | [address] | [address] Phone: | | | | | | [place], | [phone] | | | | | | [place] | Fax: | | | | | | [address] | [phone] | | | | | | Phone: | | | | | | | [phone] | | | | | | | Fax: | | | | | | | [phone] | | +--------+ + + + + + Encounter Details +--------+---------+ + + + | Date | Type | Department | Care Team | Description | +--------+---------+ + + + | 12/30/ | Office | [facility] [place] | Ulysses Genao MD | Benign paroxysmal | | 2018 | Visit | OTOLARYNGOLOGY [address] | [address] | positional vertigo, | | | | [address] | [address] [place] | unspecified | | | | [place], [place] | [address] | laterality (Primary | | | | [address] | | Dx); Dysfunction of | | | | [phone] | | left eustachian tube | +--------+---------+ [...] negative nichole ft to it. Her speech receptionist nurse threshold is 20 dB in the right [...] | | | | | [place] [address] | | | | | | [phone] | | | | | | | [...]
--- OUTSIDE RECORDS SUMMARY | ~2020-02-29 | XMS | Encounter Summary ---
Demographics + + + | Address | [address] | | | [place] [address] | + + + | Home Phone [...] Providers + +------+ + | Care Fire Fighters Dispatcher Name | Role | Phone | [...] as of this encounter Progress Notes Interface, Interpreter Deaf In - 01/13/2005 9:03 AM PDT [id number] [facility] Date: 01/02/2005 Clinic: Endocrinology [...] months. Beto Meeks M.D. PD / HS [id number] / [id number] / [id number] / [id number] cc: Chris Padgett M.D. documented i n this encounter Plan of Treatment Not on filedocumented as of this encounter Visit Diagnoses Not on filedocumented in this encounter"
--- OUTSIDE RECORDS SUMMARY | ~2020-02-29 | XMS | Encounter Summary ---
Demographics + + + | Address | [address] | | | [place] [address] | + + + | Home Phone [...] Providers + +------+ + | Care Support Technician Name | Role | Phone [...] | | | | | | Mailcode: [facility] | | | | | | | [facility] Center | | | | | | | for Health | | | | | | | and Healing, | | | | | | | [address] | | | | | | | [facility] [place] | | | | | | | [address] | | | | | | | Phone: | | | | | | | [phone] | | | | | | | Fax: | | | | | | | [phone] | +--------+--------+ + + + + Encounter Details +--------+ + + + + | Date | Type | Department | Care Team | Description | +--------+ + + + + | 09/14/ | Hospital | [facility] PROCEDURE | Olivia, | | | 2008 | Encounter | [address] | MD Pedrito | | | | | Bethanie Mailcode: [facility] | | | | | | [facility] for | | | | | | Health and Healing, | | | | | | [address] | | | | | | [facility] [place] | | | | | | [address] | | | | | | [phone] | | | +--------+ + + + [...] documented in this encounter Discharge Instructions Instructions EdisonMarleen - 09/14/2008 [facility] Endoscopy [facility] [place] [address] Toll Free ext: [phone] Home Care Instructions after EGD (Upper Endoscopy) [...] hours, or on weekends and holidays Hospital Autism Tutor and have the GI doctor business operations manager paged. The provider who performed your [...] Meehan is a 48 y.o. female MR# [id number] presents today for an EG D to [...] 01/22/2006 Tramadol 01/22/2006 Morphine Clarithromycin Hives 06/28/2007 Gmxtwoz-kkgbdzkctw-cey-caff 08/28/2008 See procedure note 09/14/2008 documented in this encounter Procedure Notes Other, Faculty - 09/14/2008 9:07 AM PDT Other, Faculty - 09/14/2008 12:00 AM PDT toni barrera in this encounter Miscellaneous Notes Scan - Other, Faculty - 09/14/2008 9:07 AM PDT documented in this encounter Plan [...]
--- OUTSIDE RECORDS SUMMARY | ~2020-02-29 | XMS | Encounter Summary ---
Demographics + + + | Address | [address] | | | [place] [address] | + + + | Home Phone [...] + + | 03/03/ | Telephone | [facility] | Alanis, | Medication Question | | 2017 | | MEDICINE [facility] [address] | MD Petrona | | | | | [place], | [address] | | | | | [place] [address] | [place] [address] | | | | | [phone] | [phone] | | | | | | | [...] - 03/03/2018 3:38 PM PDTCall returned to [place] [facility]. I informed her that feels that, although the rx for the Clonidine is a good id ea, it was not appropriate for the patient, due high fall risk. I have also call Frida [facility] and gave verbal order to run [...] [facility] Will call her back later this afternoon [...] PDTReceived a call from Ju Lynch with [facility] wanting to speak with the [...] | | | | | [place] [address] | | | | | | [phone] | | | | | | | | +--------+---------+ + + + documented as of this encounter Visit Diagnoses Not on filedocumented in this encounter"
--- OUTSIDE RECORDS SUMMARY | ~2020-02-29 | XMS | Encounter Summary ---
Demographics + + + | Address | [address] | | | [place] [address] | + + + | Home Phone [...] Providers + +------+ + | Care Food Products Sales Representative Name | Role | [...] | Visit | [address] | OPERATION SHIFT SUPERVISOR | syndrome [address] | | | | [address] | | (Primary Dx); | | | | Physician's | | Fibromyalgia | | | | Pavilion, 4th Floor | | | | | | [place], [place] | | | | | | [address] | | | | | | [phone] | | | +--------+---------+ + + + [...] sensitivity. It has been remarkably good for ejni e patients with ptsd/depression type issues for [...] + + +--------+ + + | CO INJECT TRIGGER | Procedures | Routin | [...]
--- OUTSIDE RECORDS SUMMARY | ~2020-02-29 | XMS | Encounter Summary ---
Demographics + + + | Address | [address] | | | [place] [address] | + + + | Home Phone [...] Team Providers + +------+ + | Care Infection Control Practitioner Name | Role | Phone | [...] Progress Notes Interface, Power Wood Sawyer In 02/17/2006 3:[address] [address] or October 02, 2001 Pedrito Gutierrez M.D. [facility] [address] [facility] [place] [address] RE: BELINDA MEEHAN MR #: [id number] Dear Dr. 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 Sincerely, Issac Meeks M.D. corporate travel consultant, Division of Endocrinology, Diabetes, and Clinical Senior Mobile Application Developer, Metabolic Disorders Clinic Ph#: [phone] PBD / [id number] / [id number] / [id number] / C: 10/13/2001 praful [id number] signed by Interface, Power Wood Sawyer In at 02/17/2006 3:04 AM [facility] umented in this encounter Plan of Treatment Not on filedocumented as of this encounter Visit Diagnoses Not on filedocumented in this encounter"
--- OUTSIDE RECORDS SUMMARY | ~2020-02-29 | XMS | Encounter Summary ---
Demographics + + + | Address | [address] | | | [place] [address] | + + + | Home Phone [...] Team Providers + +------+ + | Care Sealer Operator Name | Role | Phone [...]
--- OUTSIDE RECORDS SUMMARY | ~2020-02-29 | XMS | Encounter Summary ---
Demographics + + + | Address | [address] | | | [place] [address] | + + + | Home Phone [...] Team Providers + +------+ + | Care Nitro Man Name | Role | Phone | [...] Medication Refill | | 2017 | | [facility] [address] | MD Petrona | | | | | [place], | [address] [place] | | | | | [place] [address] | [place] [address] | | | | | [phone] | [phone] | | | | | | | [...] | | | | | [place] [address] | | | | | | [phone] | | | | | | | | +--------+---------+ + + + documented as of this encounter Visit Diagnoses Not on filedocumented in this encounter"
--- OUTSIDE RECORDS SUMMARY | ~2020-02-29 | XMS | Encounter Summary ---
Demographics + + + | Address | [address] | | | [place] [address] | + + + | Home Phone [...] Providers + +------+ + | Care Fruit Buying Grader Name | Role | Phone | [...] as of this encounter Procedure Notes Interface, Entry Engineer In - 06/11/2006 6:51 AM PST PROCEDURES:COLONOSCOPY CPT: 39572. WITH POLYPECTOMY. CPT: 24950. PERSONNEL:ENDOSCOPIST: NIYA RODRIGUEZ MD. NURSE: VINNIE DANIELS RN. SOAKING PIT OPERATOR: XIN WILLIAMSON. REFERRED BY:GIULIANA JOSE MD. ELIEZER [...] AND BP MONITORING, OXIMETRY USED. COLON PREPUSED kenxus PREP KIT FOR COLON PREP. PREP RESULTS: GOOD. FLUOROSCOPY:FLUOROSCOPY WAS NOT USED. SEDATION MEDS:PATIENT ASSESSED AND FOUND TO BE APPROPRIATE FOR MODERATE (CONSCIOUS) SEDATION. SEDATION WAS MANAGED BY THE ENDOSCOPIST. THE PATIENT WAS NOT INTUBATED. FENTANYL 100 MCG. GIVEN IV. MIDAZOLAM 4 MG. GIVEN IV. INSTRUMENT(S):[id number] VARIABLE STIFFNESS. SERIAL #[id number]. - MULTIPLE POLYPS: SIGMOID COLON. MAXIMUM SIZE [...] REPORT ENTERED BY: NIYA RODRIGUEZ MD nterface, Entry Engineer In - 04/03/2006 2:02 AM PDT PROCEDURES:PANENDOSCOPY (EGD) CPT: 60108. WITH BIOPSY(S)/BRUSHING(S). CPT: 02248. PERSONNEL:ENDOSCOPIST: NIYA RODRIGUEZ MD. NURSE: VINNIE DANIELS RN. SOAKING PIT OPERATOR: XIN WILLIAMSON. REFERRED BY:GIULIANA JOSE MD. ELIEZER [...]
--- OUTSIDE RECORDS SUMMARY | ~2020-02-29 | XMS | Encounter Summary ---
Demographics + + + | Address | [address] | | | [place] [address] | + + + | Home Phone [...] Team Providers + +------+ + | Care Lacquer Mixer Name | Role | Phone | + +------+ + | Petrona Thapa | PCP | | | MD | | | + +------+ + Encounter Details +--------+ + + + + | Date | Type | Department | Care Team | Description | +--------+ + + + + | 05/04/ | [facility] | [facility] | Alanis, | Left hip pain | | 2017 | Encounter | [facility] [address] [facility] | MD Petrona | | | | | [address] | [address] [facility] | | | | | [place] | [place] [address] | | | | | [address] | [phone] | | | | | [phone] | | | +--------+ + + + [...] ordered, please prin jacobsen and [facility] signed by Petrona Thapa MD at [...] | | | | | [place] [address] | | | | | | [phone] | | | | | | | [...]
--- OUTSIDE RECORDS SUMMARY | ~2020-02-29 | XMS | Encounter Summary ---
Demographics + + + | Address | [address] | | | [place] [address] | + + + | Home Phone [...] Team Providers + +------+ + | Care Basting Marker Name | Role | Phone | [...] | | 2012 | | Center at [facility] [address] | [employer] DRIVER [address] | | | | | [address] | [facility] [address] | | | | | for Health and | [place], [place] | | | | | [facility] 2 | [address] | | | | | [place], [place] | [phone] | | | | | [address] | | | | | | [phone] | | | +--------+ + + + [...]
--- OUTSIDE RECORDS SUMMARY | ~2020-02-29 | XMS | Encounter Summary ---
Demographics + + + | Address | [address] | | | [place] [address] | + + + | Home Phone [...] Providers + +------+ + | Care Deputy Brand Inspector Name | Role | Phone | [...] [address] | | | | | [place], [place] | [place], [place] | | | | | [address] | [address] | | | | | [phone] | [phone] | | | | | | | [...]
--- OUTSIDE RECORDS SUMMARY | ~2020-02-29 | XMS | Encounter Summary ---
Demographics + + + | Address | [address] | | | [place] [address] | + + + | Home Phone [...] Providers + +------+ + | Care Cutter Plastics Rolls Name | Role | Phone | + [...] Rd | | | | | | [place], [place] | | | | | | [address] | | | +--------+ + + + [...] as of this encounter Progress Notes Interface, Blending Coordinator In - 12/06/2006 2:32 AM PDT [id number] GEOVANNI SKELTON Molly [id number] Clinic Date: 10/29/2006 Clinic: Endocrinology Subjective: Belinda [...] been working with the Pain Clinic at [facility] to optimize her pain management. Fortunately, the [...] patch 25 mcg for 72 hours. 2. [place]/acetaminophen 10 mg/325 mg, 1 every 6 hours [...] months. Beto Meeks M.D. PD / HS [id number] / [id number] / [id number] / [id number] cc: Pedrito Gutierrez M.D. [address] [address] Chris Padgett M.D. Electronically signed by Beto Meeks 12-05-2006 05:17:05 AM documented in this encounter Plan of Treatment Not on filedocumented as of this encounter Visit Diagnoses Not on filedocumented in this encounter"
--- OUTSIDE RECORDS SUMMARY | ~2020-02-29 | XMS | Encounter Summary ---
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, Lumbar | | | | [facility] | | Region; Herniated | | | | [address] | | Lumbar | | | | [facility] | | Intervertebral Disc | | | | and Healing, | | L4-5; Left Knee | | | | Building | | Pain; Opioid | | | | Floor [place], [place] | | [place], | | | | [address] | | Continuous ([facility]); | | | | [phone] | | Migraine Headache; | | | | | | Fibromyalgia | | | | | | syndrome 729.1; | | | | | | Major Depressive | | | | | | Disorder, Recurrent | | | | | | Episode, Moderate | | | | | | ([facility]); Adjustment | | | | | | [...] note might be different from lesli gomez. 01/04/2007 Belinda Meehan is a 46 y.o. female [facility] Comprehensive Pain Center Return Visit [...] and Independent Home Exercise Program DELFINA MOLINA [facility] Mail code CH 4P [facility] [address] [facility] [address] Ailyn Foster 01/05/20 1:29 PM PDTCMA History: PMH/PSH/SH/FH review 1. [...]
--- OUTSIDE RECORDS SUMMARY | ~2020-02-29 | XMS | Encounter Summary ---
Demographics + + + | Address | [address] | | | [place] [address] | + + + | Home Phone [...] [facility] | [place], [place] | | | | | and Healing, | [address] | | | | | [facility] 1, [facility] | [phone] | | | | | Floor [place], [place] | | | | | | [address] | | | | | | [phone] | | | +--------+ + + + [...] istratively closed with the authorization of the [facility] Committee. elephone Encounter - Ju [place] - 11/01/2007 8:04 AM PDTPatient moved up her 6 mos f/u appointment from December o soonest available, 11-25-07 with Macarena. Patient seen in ED recently for dehydration in [place], [place]. Patient requesting call from nurse and possible work in sooner. Patient appro ves confidential and detailed messages left on answering machine and voicemail. documented in this encoun ter Plan of Treatment Not on filedocumented as of this encounter Visit Diagnoses Not on filedocumented in this encounter"
--- OUTSIDE RECORDS SUMMARY | ~2020-02-29 | XMS | Encounter Summary ---
Demographics + + + | Address | [address] | | | [place] [address] | + + + | Home Phone [...] Team Providers + +------+ + | Care Edm Operator Name | Role | Phone | [...] + + | 02/18/ | Telephone | [facility] INTERNAL | Alanis, | Results | | 2017 | | MEDICINE [address] | MD Petrona | | | | | [place], | [address] [facility] [place] | | | | | [place] [address] | [place] [address] | | | | | [phone] | | | | | | | [...] | | | | | [place] [address] | | | | | | [phone] | | | | | | | | +--------+---------+ + + + documented as of this encounter Visit Diagnoses Not on filedocumented in this encounter"
--- OUTSIDE RECORDS SUMMARY | ~2020-02-29 | XMS | Encounter Summary ---
Demographics + + + | Address | [address] | | | [place] [address] | + + + | Home Phone [...] Providers + +------+ + | Care Oracle Drm Consultant Name | Role | Phone | [...] as of this encounter Progress Notes Interface, Copper Etcher In - 01/12/2005 12:26 AM PDT [id number] GEOVANNI Barnes Clinic Date: 07/25/2004 Clinic: Rheumatology [...] weight that she has lost. At the [employer], a study was presented [...] 6 months. Caitlin Rivera M.S., F.N.P. / [id number] / [id number] / [id number] / [id number] cc: Pedrito Gutierrez M.D. [address] [facility] [place] [address] Electronically signed by Caitlin Rivera 07-31-2004 12:02:37 PM documented i n this encounter Plan of Treatment Not on filedocumented as of this encounter Visit Diagnoses Not on filedocumented in this encounter"
--- OUTSIDE RECORDS SUMMARY | ~2020-02-29 | XMS | Encounter Summary ---
Demographics + + + | Address | [address] | | | [place] [address] | + + + | Home Phone [...] Team Providers + +------+ + | Care Weighter Name | Role | Phone | + [...] + + | 06/29/ | Telephone | [facility] | Alanis, | Illness | | 2017 | | MEDICINE [address] | MD Petrona | | | | | [place], | [address] [facility] | | | | | [place] [address] | [place] [address] | | | | | [phone] | [phone] | | | | | | | [...] in angie Patient can be reached at [phone] signed by Shalonda Mcdermott at 06/29/2017 4:31 [...] | | | | | [place] [address] | | | | | | [phone] | | | | | | | | +--------+---------+ + + + documented as of this encounter Visit Diagnoses Not on filedocumented in this encounter"
--- OUTSIDE RECORDS SUMMARY | ~2020-02-29 | XMS | Encounter Summary ---
[...] Providers + +------+ + | Care Toe Trimmer Name | Role | Phone | [...] [address] | | | | | [place], [place] | [place], [place] | | | | | [address] | [address] | | | | | [phone] | [phone] | | | | | | | [...] | | + +---------+ + + | [facility] | | | | | RADIOLOGY | | | | + +---------+ + + documented in this encounter Visit Diagnoses Not on filedocumented in this encounter"
--- OUTSIDE RECORDS SUMMARY | ~2020-02-29 | XMS | Encounter Summary ---
Demographics + + + | Address | [address] | | | [place] [address] | + + + | Home Phone [...] Providers + +------+ + | Care Paving Inspector Name | Role | Phone | + +------+ + | Sulaiman Carrera MD | PCP | | + +------+ + Encounter Details +--------+ + + + + | Date | Type | Department | Care Team | Description | +--------+ + + + + | 09/10/ | Ancillary | Registration [address] | Beto Meeks MD | | | 2004 | Registratio | [facility] | [address] | | | | n | [place] Mailcode: [id number] | [place], [place] | | | | | [place], [place] | [address] | | | | | [address] | [phone] | | | | | [phone] | | | +--------+ + + + [...] + + + | [facility] | [address] | [place] [address] | | | LABORATORY | | | [...] | [facility] | [address] [facility] | [place] [address] | | | PATHOLOGY | [address] | | | + + + + + | [facility] DEPARTMENT OF | [facility] | [place] [address] | | | PATHOLOGY | [address] [...] [facility] DE[facility] | [address] | [place] [address] | | | PATHOLOGY | [address] | | | + + + + + | [place] DEPARTMENT OF | [address] | [place] [address] | | | PATHOLOGY | [address] [...] | [facility] | [facility] | [place] [address] | | | PATHOLOGY | [address] | | | + + + + + | [facility] DEPARTMENT OF | [facility] | [place] [address] | | | PATHOLOGY | [address] | | | + + + + + documented in this encounter Visit Diagnoses Not on filedocumented in this encounter"
--- OUTSIDE RECORDS SUMMARY | ~2020-02-29 | XMS | Encounter Summary ---
Demographics + + + | Address | [address] | | | [place] [address] | + + + | Home Phone [...] Providers + +------+ + | Care Executive Services Administrator Name | Role | Phone | [...] | | | | | Procedures | [place], [place] | [address] [facility] | | | | | CONSULT TO | [address] | [address] | | | | | SURGERY - | | [address] [place], | | | | | GENERAL | | [place] | | | | | | | [address] | | | | | | | Phone: | | | | | | | [phone] | | | | | | | Fax: | | | | | | | [phone] | +--------+--------+ + + + + Encounter Details +--------+ + + + + | Date | Type | Department | Care Team | Description | +--------+ + + + + | 08/31/ | Pattern Attendant | Digestive Health | Nuris Cardenas ANP | Hemorrhoid (Primary | | 2008 | | Center [address] | | Dx) | | | | [address] | | | | | | Mailcode: [id number] | | | | | | [facility] | | | | | | [place], [place] | | | | | | [address] | | | | | | [phone] | | | +--------+ + + + [...]
--- OUTSIDE RECORDS SUMMARY | ~2020-02-29 | XMS | Encounter Summary ---
Demographics + + + | Address | [address] | | | [place] [address] | + + + | Home Phone [...] Providers + +------+ + | Care Accounting Recruiter Name | Role | Phone | [...] + + | 03/21/ | Office | [facility] | EmmyAlberto, | Migraine without | | 2019 | Visit | MEDICINE [address] | MD Petrona | aura and without | | | | [facility], | [address] [facility] | status migrainosus, | | | | [place] [address] | [place] [address] | not intractable | | | | [phone] | [phone] | (Primary Dx); | | | | [...] She is working with an orthopedist in [facility], and she anticipates that she will [...] [facility]) Depression Diarrhea Dumping syndrome Fall at home Fatigue fracture of vertebra Fibromyalgia Full dentures GERD (gastroesophageal reflux disease) Glaucoma Hyperparathyroidism ([facility]) Hypothyroidism IBS (irritable bowel syndrome) Idiopathic scoliosis Leg edema Low back pain Lumbar postlaminectomy syndrome Lumbar radiculopathy primarily right 01/04/2015 Meniere syndrome Migraine with aura Migraines Muscle cramping Muscle spasm Myalgia Nausea Nonalcoholic hepatosteatosis Obesity Opioid dependence ([facility]) Orthostatic hypotension [place] (obstructive sleep apnea) Osteoarthritis, [...] COLONOSCOPY; Surgeon: Luther Brito MD; Location: [facility] MEDICAL PROCEDURE UNIT DILATION AND CURETTAGE OF UTERUS ELBOW SURGERY FINGER TRIGGER RELEASE 2002 FINGER TRIGGER RELEASE 2010 GASTRIC BYPASS SURGERY 2004 HYSTERECTOMY 05/14/1980 JOINT REPLACEMENT Bilateral 2007 2008 KNEE ARTHROSCOPY 2005 LAPAROSCOPY 01/27/2015 LAPAROTOMY 2008 ROTATOR CUFF REPAIR 2005 SPINE SURGERY TONSILLECTOMY 1964 UPPER GASTROINTESTINAL ENDOSCOPY N/A 12/18/2017 Procedure: EGD; Surgeon: Luther Brito MD; Location: [facility] MEDICAL PROCEDURE UNIT CURRENT MEDICATIONS [...] Allergen Reactions Ensure Diarrhea Food Diarrhea Lactose Izqiconzwc-Jkf-Ipbm-Codeine Other (See Comments) Balance problems Codeine Sulfate Nausea Only Food Allergy Formula Diarrhea Ensure Levofloxacin Hives, Itching and Rash Butalbital Ropinirole Amitriptyline Hcl Other (See Comments) Confused and questionable for seizures Mcdhgjwrrm-Mqja-Slrkneaa Rash duplicate Sgeugeqptr-Ttep-Ylmeqtcv Hives and Rash Cephalexin Hives Ciprofloxacin Hives [...] 1. Parts of this documentwere created using [employer] speech recognition software. As a resu lt, [...] | | | | | [place] [address] | | | | | | [phone] | | | | | | | [...] | | | | First dose on [facility] 10/15/17 at 1215 | | [...]
--- OUTSIDE RECORDS SUMMARY | ~2020-02-29 | XMS | Encounter Summary ---
Demographics + + + | Address | [address] | | | [place] [address] | + + + | Home Phone [...] Team Providers + +------+ + | Care Placer Miner Name | Role | Phone | [...] + + | 04/08/ | Office | [facility] | Alanis, | Pressure injury of | | 2017 | Visit | MEDICINE [address] | MD John | right buttock, stage | | | | [address] [place], | [address] [facility] | 1 (Primary Dx); [place] | | | | [place] [address] | [place] [address] | (obstructive sleep | | | | [phone] | [phone] | apnea); Lower leg | | | [...] generalized Osteopenia Osteoporosis Peripheral neuropathy Rheumatoid arthritis ([facility] [...] Surgeon: Luther Brito MD; Location: [facility] MEDICAL PROCEDURE UNIT DILATION AND CURETTAGE OF UTERUS ELBOW SURGERY FINGER TRIGGER RELEASE 2003 FINGER TRIGGER RELEASE 2010 GASTRIC BYPASS SURGERY 2004 HYSTERECTOMY 05/14/1980 JOINT REPLACEMENT Bilateral 2007 2008 KNEE ARTHROSCOPY 2005 LAPAROSCOPY 01/27/2015 LAPAROTOMY 2008 ROTATOR CUFF REPAIR 2005 SPINE SURGERY TONSILLECTOMY 1964 UPPER GASTROINTESTINAL ENDOSCOPY N/A 12/18/2017 Procedure: EGD; Surgeon: Luther Brito MD; Location: [facility] MEDICAL PROCEDURE UNIT CURRENT MEDICATIONS Current [...] (See Comments) Confused and questionable for seizures Qdrywmuspr-Gugl-Nktugfem Hives and Rash Cephalexin Hives Ciprofloxacin Hives [...] like to check with a provider in [place] which is closer to her home for [...] Note: Parts of this documentwere created using [employer] speech recognition software. As a r esult, [...] | | | | | [place] [address] | | | | | | [phone] | | | | | | | [...]
--- OUTSIDE RECORDS SUMMARY | ~2020-02-29 | XMS | Encounter Summary ---
Demographics + + + | Address | [address] | | | [place] [address] | + + + | Home Phone [...] Providers + +------+ + | Care Gill Net Stringer Name | Role | Phone | [...] + | 01/04/ | Telephone | [facility] | Ulysses Genao MD | Other | | 2017 | | OTOLARYNGOLOGY [address] | [address] [place] [address] | | | | | [address] [facility] [address] | [address] [place] | | | | | [place] | [address] | | | | | [address] | | | | | | [phone] | | | +--------+ + + + [...] Miscellaneous Notes Telephone Encounter - Louise Randall, Wagon Winder - 01/04/2018 2:45 PM PDTReferr al has been approved and have been faxed to [facility] at [facility] elephone Encounter - Louise Carlton, Wagon Winder - 01/04/2018 9:58 AM PDTWaiting for referral to be approved by insurance and then I will send the order es. elephone Encounter - Ly Li - 018 8:58 AM PDT Vivi called wanting to know where the orders are for Belinda Shefali for Vertigo? Please fax orders to : [phone] Fax document ed in this encounter Plan of Treatment +--------+---------+ + + + | Date | Type | Specialty | Care Team | Description | +--------+---------+ + + + | 05/17/ | Office | Internal Medicine | Aalnis, | | | 2019 | Visit | | MD [place] | | | | | | [address] [place] [address] [place] | | | | | | [place] [address] | | | | | | [phone] | | | | | | | | +--------+---------+ + + + documented as of this encounter Visit Diagnoses Not on filedocumented in this encounter"
--- OUTSIDE RECORDS SUMMARY | ~2020-02-29 | XMS | Encounter Summary ---
Demographics + + + | Address | [address] | | | [place] [address] | + + + | Home Phone [...] Providers + +------+ + | Care Account Liaison Name | Role | Phone | [...] + + | 08/26/ | Telephone | [facility] | Alanis, | Headache (Adult - | | 2018 | | MEDICINE [address] | MD [place] | Recurrent Or Known | | | | [place], | [address] [place] | Dx Migraines) | | | | [place] [address] | [place] [address] | | | | | [phone] | [phone] | | | | | | | [...] | | | | | [place] [address] | | | | | | [phone] | | | | | | | [...]
--- OUTSIDE RECORDS SUMMARY | ~2020-02-29 | XMS | Encounter Summary ---
Demographics + + + | Address | [address] | | | [place] [address] | + + + | Home Phone [...] Providers + +------+ + | Care Equipment Operator Name | Role | Phone [...] + + | 05/14/ | Telephone | [facility] | Alanis, | Referral | | 2017 | | MEDICINE [address] | MD [place] | | | | | [place], | [address] [facility] | | | | | [place] [address] | [place] [address] | | | | | [phone] | [phone] | | | | | | | [...] in town for her appointment. Please advise [phone] documented in this encounter Plan of Treatment +--------+---------+ + + + | Date | Type | Specialty | Care Team | Description | +--------+---------+ + + + | 05/17/ | Office | Internal Medicine | Alanis, | | | 2019 | Visit | | MD [place] | | | | | | [address] | | | | | | [place] [address] | | | | | | [phone] | | | | | | | | +--------+---------+ + + + documented as of this encounter Visit Diagnoses Not on filedocumented in this encounter"
--- OUTSIDE RECORDS SUMMARY | ~2020-02-29 | XMS | Encounter Summary ---
Demographics + + + | Address | [address] | | | [place] [address] | + + + | Home Phone [...] Providers + +------+ + | Care Data Warehouse Consultant Name | Role | Phone | [...] + + | 06/02/ | Telephone | [facility] | Alanis, | Results | | 2017 | | MEDICINE [address] | MD [place] | | | | | [place], | [address] [facility] [place] | | | | | [place] [address] | [place] [address] | | | | | [phone] | | | | | | | [...] her MRI done on 05/26/2018. Please advise [phone] signed by Ayla Quezada at 06/02/2018 1:52 [...] | | | | | [place] [address] | | | | | | [phone] | | | | | | | | +--------+---------+ + + + documented as of this encounter Visit Diagnoses Not on filedocumented in this encounter"
--- OUTSIDE RECORDS SUMMARY | ~2020-02-29 | XMS | Encounter Summary ---
Demographics + + + | Address | [address] | | | [place] [address] | + + + | Home Phone [...] Team Providers + +------+ + | Care Silicator Name | Role | Phone | + [...] of this encounter Progress Notes Interface, Marine Electronics Technician In - 08/30/2005 2:07 AM PST [id number] [facility] Date: 07/24/2005 Clinic: Surgery [...] her chart for surgery. Chris Padgett M.D. CD / HS [id number] / [id number] / [id number] / [id number] Electronically signed by Chris Padgett 08-29-2005 03:28:14 PM documented i n this encounter Plan of Treatment Not on filedocumented as of this encounter Visit Diagnoses Not on filedocumented in this encounter"
--- OUTSIDE RECORDS SUMMARY | ~2020-02-29 | XMS | Encounter Summary ---
Demographics + + + | Address | [address] | | | [place] [address] | + + + | Home Phone [...] Providers + +------+ + | Care Cdl Company Driver Name | Role | Phone [...] Rehabilitatio | syndrome of | i, | [place] | | | | n | right | Sulaiman-Russell | [place], | | | | | shoulder | , [address] | [place] [address] | | | | | Procedures | [address] | Phone: | | | | | PT | [place], | [phone] | | | | | | [place] | Fax: | | | | | | [address] | [phone] | | | | | | Phone: | | | | | | | [phone] | | | | | | | Fax: | | | | | | | [phone] | | +--------+ + + + + [...] Dx); Chest | | | | [place] [address] | [place] [address] | pain, unspecified | | | | [phone] | [phone] | type | | | | | [...] (See Comments) Confused and questionable for seizures Jejotfczgv-Rhhe-Jpalnitt Cephalexin Hives Duloxetine Migraines and nausea Ketorolac Hives Morphine Swelling Ropinirole Hcl Hives Tramadol Hcl Nausea Only Lxcudebdhp-Vtuw-Zhrkihtq Hives and Rash Ciprofloxacin Hives and Rash [...] Right 2 + Vw; Future - * [facility] Physical Therapy - AMB Referral; Future 2. Chest pain, unspecified type - nitroglycerin (NITROSTAT) 0.4 mg SL tablet; Place 1 tablet under the tongue every 5 minut es as needed for Chest pain. Dispense: 25 tablet; Refill: 3 FOLLOW-UP Return in about 6 months (around 03/24/2018). Note: Parts of this documentwere created using [employer] speech recognition software. As a r esult, [...] | | | | [address] [facility] | | | | | | [place] [address] | | | | | | [phone] | | | | | | | [...]
--- OUTSIDE RECORDS SUMMARY | ~2020-02-29 | XMS | Encounter Summary ---
Demographics + + + | Address | [address] | | | [place] [address] | + + + | Home Phone [...] Providers + +------+ + | Care Livestock Caretaker Name | Role | Phone | [...] + | 08/03/ | Telephone | [facility] | Alanis, | Personal Problem | | 2018 | | MEDICINE [address] | MD [place] | (Rash in private | | | | [address] [place], | [address] [facility] | area) | | | | [place] [address] | [place] [address] | | | | | [phone] | [phone] | | | | | | | [...] . Shania ent can be reached at [phone] signed by Sia Bai at 08/03/2018 3:30 [...] | | | | | [place] [address] | | | | | | [phone] | | | | | | | | +--------+---------+ + + + documented as of this encounter Visit Diagnoses Not on filedocumented in this encounter
--- OUTSIDE RECORDS SUMMARY | ~2020-02-29 | XMS | Encounter Summary ---
[...] Team Providers + +------+ + | Care Fluid Dynamicist Name | Role | Phone | + +------+ + | [place] Thapa | PCP | | | MD | | | + +------+ + Reason for Visit + + + | Reason | Comments | + + + | Medication Refill | | + + + | Infusion | Reclast due approx 07/29/17, last one done at the [facility] | + + + Encounter Details [...] [place] | pathological | | | | [place] [address] | [place] [address] | fracture presence | | | | [phone] | [phone] | (Primary Dx); | | | | [...] approx 07/29/17, last one done at the [facility] Belinda Meehan is a 57 [...] She is seeing a pain specialist in [place] and is receiving hydrocodone from them. She needs a refill of Lomotil for chronic diarrhea which she tolerates well. She also reports some discomfort in the left nostril which is plugged most of the time for last several weeks. No fever or chills. No purulent drainage. Has history of allergies. REVIEW OF SYSTEMS See [facility] for further details. Review of systems otherwise negative. PAST MEDICAL HISTORY Past Medical History: Diagnosis Date Arthritis Atypical chest pain Benign essential hypertension Blind left eye Cervical radiculopathy Chronic low back pain 01/04/2015 Chronic neck pain 01/04/2015 Chronic pain Chronic venous insufficiency Coccydynia COPD (chronic obstructive pulmonary disease) ([facility]) Depression Diarrhea Dumping syndrome Fatigue fracture of vertebra Fibromyalgia Glaucoma Hyperparathyroidism (HCC) Hypothyroidism IBS (irritable bowel syndrome) Idiopathic scoliosis Leg edema Lumbar postlaminectomy syndrome Lumbar radiculopathy primarily right 01/04/2015 Meniere syndrome Migraines Muscle cramping Muscle spasm Myalgia Nonalcoholic hepatosteatosis Obesity Opiate dependence (HCC) Orthostatic hypotension OLIVER (obstructive sleep apnea) Osteoarthritis, generalized Osteopenia Osteoporosis Peripheral neuropathy (HCC) Rheumatoid arthritis ([facility]) Right [...] (See Comments) Confused and questionable for seizures Iuxwpdvrcp-Pmuf-Tjgsvcgf Cephalexin Hives Duloxetine Migraines and nausea Ketorolac Hives Morphine Swelling Ropinirole Hcl Hives Tramadol Hcl Nausea Only Cfaglgglef-Pnoa-Quhgllwj Hives and Rash Ciprofloxacin Hives and Rash [...] Note: Parts of this documentwere created using [employer] speech recognition software. As a r esult, [...] | | | | | | [address] [facility] [place] | | | | | | [place] [address] | | | | | | [phone] | | | | | | | [...]
--- OUTSIDE RECORDS SUMMARY | ~2020-02-29 | XMS | Encounter Summary ---
Demographics + + + | Address | [address] | | | [place] [address] | + + + | Home Phone [...] Providers + +------+ + | Care Travel Administrator Name | Role | Phone | + +------+ + | Pedrito Gutierrez MD | PCP | | + +------+ + Encounter Details +--------+---------+ + + + | Date | Type | Department | Care Team | Description | +--------+---------+ + + + | 08/26/ | Office | Comprehensive Pain | Nathalia Arora | Spondylosis with | | 2006 | Visit | [facility] | [address] | Myelopathy, Lumbar | | | | [place] [address] [place], | Region; Herniated | | | | [address] [facility] | [place] [address] | Lumbar | | | | [facility], | | Intervertebral Disc | | | | | | L4-5; Neck Pain; | | | | Floor [place], [place] | | Fibromyalgia | | | | [address] | | syndrome 729.1 | | | | [phone] | | | +--------+---------+ + + + [...] Medicare Progress Note Date: 08/26/2006 Belinda Meehan [id number]. 1960 Start of Care: 06/23/2006 Referring Provider: [...] and when she is finished at the [facility] with physical therapy advised to become [...] X 3 more visits total. Treatment began: 1110 Treatment ended: 1144 Nathalia Arora, Physical Therapist [...]
--- OUTSIDE RECORDS SUMMARY | ~2020-02-29 | XMS | Encounter Summary ---
Demographics + + + | Address | [address] | | | [place] [address] | + + + | Home Phone [...] Providers + +------+ + | Care Welder Experimental Name | Role | Phone | + [...] as of this encounter H&P Notes Interface, Clutch Inspector In - 01/12/2005 10:09 AM PDT [id number] 12/05/2004 12/05/2004 [id number] GEOVANNI Barnes Date of Service: 12/05/2004 History Attending Physician: Chris Padgett M.D. Chief Complaint: Big pannus. History of Present Illness: Ms. Meehan is a 44-year-old female who lost 229 pounds from her peak weight. She had a gastric bypass surgery done about 1 year ago and she has been doing much, much better after the surgery and weight loss. She developed a big pannus on her abdomen after she lost the 200 plus pounds of weight and it impairs her ability for doing daily activities. She also says that she has some excessive skin on her bilateral inner thighs, and she also wants to remove it if possible. Otherwise, she is doing fine with no other symptoms. She was in [facility] today and the surgery was scheduled for tomorrow. Past Medical History: 1. Severe progressive metabolic syndrome with impaired glucose intolerance. 2. Hypertension. 3. Obstructive sleep apnea with CPAP treatment. 4. Hyperparathyroidism. 5. Chronic pain. 6. Chronic fatigue with fibromyalgia. 7. Neuromuscular disorder. 8. Synovitis. 9. Migraine syndrome. 10. Depression and anxiety. 11. Morbid obesity. Past Surgical History: 1. Tonsillectomy. 2. Hysterectomy. 3. Oophorectomy. 4. Carpal tunnel syndrome surgery. 5. Lumpectomy. 6. Right trigger release surgery. 7. Left trigger release surgery. 8. Cholecystectomy. 9. Gastric bypass. 10. Left shoulder surgery. Family History: Her family history is significant for her father being of myocardial infarction. Her mother of cardiovascular disease and hypoglycemia. Personal/Social History: She used to smoke, but she denies any abuse with alcohol and drugs. Current Medications: 1. Ranitidine 150 mg p.o. b.i.d. 2. Wellbutrin 150 mg p.o. b.i.d. 3. Vitamin B12 1000 mcg 2 times a month. 4. Phenergan suppository 25 mg every 6 h. p.r.n. 5. Darvocet-N 100 take 50 mg every 4-6 hours p.r.n. 6. Aspirin 81 mg once a day. 7. Multivitamin 2 tablets every day. 8. Magnesium 2 times a day. 9. Vitamin E 400 International Units 2 times a day. 10. Calcium D 600 mg 4 tabs a day. Allergies: THE PATIENT IS ALLERGIC TO PENICILLIN, KEFLEX, CLINDAMYCIN, CODEINE, SULFA, ERYTHROMYCIN, AND CIPRO. Physical Exam: General: This is a middle-aged woman not in acute distress. Vital Signs: Blood pressure 110/70, pulse 64, and weight 176.7 pounds. HEENT: Negative. Neck: No adenopathy. Lungs: Clear to auscultation bilaterally. Heart: Regular rate and rhythm without murmurs, gallops, or rubs. Abdomen: Obese. Soft, nontender, nondistended. No costovertebral angle tenderness. There is a big pannus and it reaches to the upper thigh when the patient is standing. There are no masses or organomegaly appreciated. Extremities: There is no edema. There are intact pulses. There is excessive skin that can be seen on the inner thigh bilaterally. Assessment and Plan: This is a 44-year-old female with a history of morbid obesity. Gastric bypass surgery was done about 1 year ago and the patient lost more than 200 pounds from her body weight. She developed a big pannus on the abdomen and also with excessive skin on the inner thighs bilaterally. We have scheduled the surgery for tomorrow to perform a panniculectomy and resection of excessive skin of bilateral inner thighs. The benefits and the risks of this procedure have been detailed with this patient and she agrees to proceed with the procedure. The patient had left shoulder surgery about 1 week ago for a left rotator cuff tendinitis. The patient still has limitation of left shoulder abduction more than 80 degrees. We will remind the operating room staff of this limitation and take good care of this patient in the operating room. Norberto Monsivais M.D. Chris Padgett M.D. / [id number] / [id number] / [id number] / Electronically signed by Chris Padgett 12-31-2004 03:02:34 PM documented i n this encounter Plan of Treatment Not on filedocumented as of this encounter Visit Diagnoses Not on filedocumented in this encounter"
--- OUTSIDE RECORDS SUMMARY | ~2020-02-29 | XMS | Encounter Summary ---
[...] + + | 03/31/ | Office | [facility] Comprehensive | Delfina Molina, | Encounter for | | 2006 | Visit | Pain Center at | ANP | Long-Term (Current) | | | | [facility] | | Use of Opioids; Left | | | | [address] | | Knee Pain; | | | | [place] [facility] | | Arthroplasty of the | | | | and Healing, | | Left Knee; DJD | | | | Building | | (Degenerative Joint | | | | Floor [place], [place] | | Disease) of Knee; | | | | [address] | | Fibromyalgia | | | | [phone] | | syndrome 729.1; | | | [...] Belinda Meehan is a 47 y.o. female [facility] Comprehensive Pain [...] any concerns or questions. DELFINA MOLINA [facility] Mail code CH 4P [place] [facility] and [address] [address] asha Nolasco - 03/31/2007 9:15 [...]
--- OUTSIDE RECORDS SUMMARY | ~2020-02-29 | XMS | Encounter Summary ---
Demographics + + + | Address | [address] | | | [place] [address] | + + + | Home Phone [...] + +------+ + | Care Clinical Quality Assurance Specialist Name | Role | Phone | [...] + + | 11/03/ | Telephone | [facility] | Alanis, | Headache | | 2018 | | MEDICINE [address] | MD [place] | | | | | [place], | [address] [facility] | | | | | [place] [address] | [place] [address] | | | | | [phone] | [phone] | | | | | | | [...] seek medical treatment at the ED in [place] for any worsening symptoms. Patient understands and accepts. Please a dvise INTeBob Young - 11/03/2018 8:47 AM PDTPatient called states [...] | | | | | | [address] [place] [address] [place] | | | | | | [place] [address] | | | | | | [phone] | | | | | | | | +--------+---------+ + + + documented as of this encounter Visit Diagnoses Not on filedocumented in this encounter"
--- OUTSIDE RECORDS SUMMARY | ~2020-02-29 | XMS | Encounter Summary ---
Demographics + + + | Address | [address] | | | [place] [address] | + + + | Home Phone [...] Providers + +------+ + | Care Communications Specialist Name | Role | Phone [...] | Closed | | | Diagnoses | [place], | OP ST | | | | | Vertigo of | Ulysses Lau MD | KEN | | | | | central | [address] | HOSPITAL | | | | | origin, | [address]VE [address] | [address] | | | | | unspecified | [place], | AVE | | | | | laterality | [place] [address] | [place] | | | | | Procedures | Phone: | [phone] | | | | | MRI Brain w | [phone] | Phone: | | | | | wo Contrast | Fax: | [phone] | | | | | IN MRI | [phone] | Fax: | | | | | BRAIN COMBO | | [phone] | +--------+--------+ + + + + Reason [...] Fluid in | Emmy-Tajt | MD Sid [address] | | | | | ears/self/Fa | i, | [address] | | | | | milycare | Sulaiman-Russell | [address] [place] | | | | | Medicare/Nik | MD [address] | [place] | | | | | escu | [place] | [address] Phone: | | | | | Procedures | [place], | [phone] | | | | | OFFICE VISIT | [place] | Fax: | | | | | REGULAR | [address] | [phone] | | | | | | Phone: | | | | | | | [phone] | | | | | | | Fax: | | | | | | | [phone] | | +--------+--------+ + + + + Encounter Details +--------+---------+ + + + | Date | Type | Department | Care Team | Description | +--------+---------+ + + + | 10/18/ | Office | [facility] [place] | Ulysses Dsouza MD | Vertigo of central | | 2015 | Visit | OTOLARYNGOLOGY [address] | [address] | origin, unspecified | | | | [address] | 4 [place], [place] | laterality (Primary | | | | [place], [place] | [address] | Dx) | | | | [address] | | | | | | [phone] | | | +--------+---------+ + + + [...] MD - 10/18/2014 10:50 AM PDT [facility] OTOLARYNGOLOGY [address] [place] [address] OFFICE NOTE ULYSSES DSOUZA MD Patient: BELINDA MEEHAN Admitting: MR #: [id number] LOC: PT TYPE: Adm Date: 10/18/2014 : [...] Transcribed on 10/18/2014 11:06:48 by cmv job# [id number] Confirmation #: [id number] signed by Ulysses Dsouza MD at 10/18/2014 12:48 PM PDT Ulysses Dsouza MD - 10/18/2014 10:45 AM PDTSee dictation # [id number] signed by Ulysses Dsouza MD at 10/18/2014 10:51 AM PDTdocumented in th is encounter Plan of Treatment +--------+---------+ + + + | Date | Type | Specialty | Care Team | Description | +--------+---------+ + + + | 05/17/ | Office | Internal Medicine | Alanis, | | | 2019 | Visit | | MD Petrona | | | | | | [address] [place] [address] [place] | | | | | | [place] [address] | | | | | | [phone] | | | | | | | [...]
--- OUTSIDE RECORDS SUMMARY | ~2020-02-29 | XMS | Encounter Summary ---
Demographics + + + | Address | [address] | | | [place] [address] | + + + | Home Phone [...] Providers + +------+ + | Care Editor News Name | Role | Phone | + [...] (lab results) | | 2006 | | [place] [address] | [address] [facility] | | | | | Bethanie Mailcode: CH4S | Naeem Clementina | | | | | [facility] | [place], [place] | | | | | and [place], | [address] | | | | | [facility] | [phone] | | | | | Floor [place], [place] | | | | | | [address] | | | | | | [phone] | | | +--------+ + + + [...]
--- OUTSIDE RECORDS SUMMARY | ~2020-02-29 | XMS | Encounter Summary ---
Demographics + + + | Address | [address] | | | [place] [address] | + + + | Home Phone [...] Team Providers + +------+ + | Care Martial Arts Instructor Name | Role | Phone [...] | | | [facility] | [place], [place] | | | | | [address] | [address] | | | | | [address] | [phone] | | | | | Physician's | | | | | | Pavilion, [facility] floor | | | | | | [place], [place] | | | | | | [address] | | | | | | [phone] | | | +--------+ + + + [...] fund her transportation since she is in [facility]. Will see if there is someone she [...] home address. You can reach her at [phone] signed by Ami Barton at 06/12/2009 9:53 AM PSTdocumented in this encounter Plan of Treatment Not on filedocumented as of this encounter Visit Diagnoses Not on filedocumented in this encounter"
--- OUTSIDE RECORDS SUMMARY | ~2020-02-29 | XMS | Encounter Summary ---
Demographics + + + | Address | [address] | | | [place] [address] | + + + | Home Phone [...] + +------+ + | Care Medical Equipment Technician Name | Role | Phone | + +------+ + | Petrona Thapa | PCP | | | MD | | | + +------+ + Reason for Visit +---------+--------+ + | Reason | Onset | Comments | | | Date | | +---------+--------+ + | Blister | 01/23/ | | | | 2020 | | +---------+--------+ + Encounter Details +--------+ + + + + | Date | Type | Department | Care Team | Description | +--------+ + + + + | 01/23/ | Telephone | [facility] | Alanis, | Blister | | 2019 | | MEDICINE [address] | MD Petrona | | | | | [place], | [address] [facility] | | | | | [place] [address] | [place] [address] | | | | | [phone] | [phone] | | | | | | | [...] | | | | | [place] [address] | | | | | | [phone] | | | | | | | | +--------+---------+ + + + documented as of this encounter Visit Diagnoses Not on filedocumented in this encounter"
--- OUTSIDE RECORDS SUMMARY | ~2020-02-29 | XMS | Encounter Summary ---
Demographics + + + | Address | [address] | | | [place] [address] | + + + | Home Phone [...] Team Providers + +------+ + | Care Scalp Specialist Name | Role | Phone | [...] as of this encounter Progress Notes Interface, Technician In - 12/25/2005 2:07 AM PDT [id number] GEOVANNI SKELTON Molly [id number] Clinic Date: 12/05/2005 Clinic: General Surgery Clinic PHONE CONSULTATION Subjective: Belinda Meehan has been under our care with a history of gastric bypass and recurrent abdominal pain, nondiagnostic on multiple tests. She was requesting a prescription for oxycodone which will be sent to her home at [address] [place] [address]. Oxycodone 5 mg, 5 to 10 p.o. q.4 h. p.r.n. pain. Please note an additional note that the patient was provided with a prescription is incorrect since the patient did not come to the appropriate location, and the prescription is not locatable at this time from the Admitting Department. The patient will follow up with Dr. Chris Padgett in clinic. Melisa Thorne / [id number] / [id number] / [id number] / [id number] Electronically signed by Kenisha Melton 12-24-2005 01:41:04 PM documented i n this encounter Plan of Treatment Not on filedocumented as of this encounter Visit Diagnoses Not on filedocumented in this encounter"
--- OUTSIDE RECORDS SUMMARY | ~2020-02-29 | XMS | Encounter Summary ---
Demographics + + + | Address | [address] | | | [place] [address] | + + + | Home Phone [...] Providers + +------+ + | Care Retail Support Specialist Name | Role | Phone [...] + | 06/17/ | Office | [facility] | Emmy-Tajti, | Migraine without | | 2019 | Visit | MEDICINE [address] | MD Petrona | aura and without | | | | [address] [place], | [address] [place] | status migrainosus, | | | | [place] [address] | [place] [address] | not intractable | | | | [phone] | [phone] | (Primary Dx); | | | | [...] her lower extremities. Had an MRI of [facility] recently showing chronic d egenerative changes and disc bulges in her lower back with no significant stenosis or other acute indications for neurosurgery. Findings were similar to a previous MRI from a few year s ago. She did have back surgery in [facility] on a number of years ago. [...] spasm Myalgia Nonalcoholic hepatosteatosis Obesity Opioid dependence ([facility]) Orthostatic hypotension OLIVER (obstructive sleep apnea) Osteoarthritis, generalized Osteopenia Osteoporosis Peripheral neuropathy Rheumatoid arthritis ([facility]) Right arm pain 01/04/2015 RLS (restless legs [...] Procedure: COLONOSCOPY; Surgeon: Luther Brito MD; Location: [facility] MEDICAL PROCEDURE UNIT DILATION AND CURETTAGE OF UTERUS ELBOW SURGERY FINGER TRIGGER RELEASE 2003 FINGER TRIGGER RELEASE 2010 GASTRIC BYPASS SURGERY 2004 HYSTERECTOMY 05/14/1980 JOINT REPLACEMENT Bilateral 2006 2008 KNEE ARTHROSCOPY 2005 LAPAROSCOPY 01/27/2015 LAPAROTOMY 2008 ROTATOR CUFF REPAIR 2005 SPINE SURGERY TONSILLECTOMY 1964 UPPER GASTROINTESTINAL ENDOSCOPY N/A 12/18/2017 Procedure: EGD; Surgeon: Luther Brito MD; Location: [facility] MEDICAL PROCEDURE UNIT CURRENT MEDICATIONS [...] (See Comments) Confused and questionable for seizures Qjvwxibxwm-Pmif-Acbnwvgt Hives and Rash Cephalexin Hives Ciprofloxacin Hives [...] - We'll refer for physical therapy in [place], including aquatic therapy. FOLLOW-UP Return in about 3 months (around 09/15/2018). Note: Parts of this documentwere created using [employer] speech recognition software. As a r esult, there may be unintended word spelling errors. Every attempt was made to correct the dictation. Shanta Trevino It Architecture Analyst - 06/17/2018 10:45 AM PSTFormatting of this note might be diff erent from the original. Administrations This Visit cyanocobalamin (VITAMIN B-12) injection 1,000 mcg Admin Date 06/17/2018 Action Given Dose 1000 mcg Route Intramuscular Administered By Shanta Whaley It Architecture Analyst Pt tolerated B-12 injection well. documented in [...] | | | | | [place] [address] | | | | | | [phone] | | | | | | | [...] | | First dose on [facility] 10/15/17 at 1215 | | | | [...]
--- OUTSIDE RECORDS SUMMARY | ~2020-02-29 | XMS | Encounter Summary ---
[...] Providers + +------+ + | Care Electrical And Radio Aircraft Mechanic Name | Role | Phone | + +------+ + | Pedrito Gutierrez MD | PCP | | + +------+ + Reason for Visit + +--------+ + | Reason | Onset | Comments | | | Date | | + +--------+ + | Refill Request | 09/28/ | | | | 2007 | | [...] [id number] | | | | | | [place], [place] | | | | | | [address] | | | | | | [phone] | | | +--------+--------+ + + + [...] Notes Telephone Encounter - Ailyn Wyatt - 09/28/2006 3:11 PM PDTPatient Name: Belinda maya, [id number], 1960 Name of Medication requested: fentanyl / norco Date of last refill: 10/07 Dose requested: 12mcg / 10mg 325mg Patient has been compliant with [facility] treatment plan: yes Ailyn Wyatt documented in this encounter Plan of Treatment Not on filedocumented as of this encounter Visit Diagnoses Not on filedocumented in this encounter"
--- OUTSIDE RECORDS SUMMARY | ~2020-02-29 | XMS | Encounter Summary ---
Demographics + + + | Address | [address] | | | [place] [address] | + + + | Home Phone [...] Providers + +------+ + | Care Learning Disabilities Teacher Name | Role | Phone | [...] pneumonia, | | | | Avjennifer Mailcode: [facility] | [address] | wants to get back on | | | | [facility] | [place], [place] | vitamins) | | | | and Healing, | [address] | | | | | [place] [address] [facility] | [phone] | | | | | Floor [place], [place] | | | | | | [address] | | | | | | [phone] | | | +--------+ + + + [...]
--- OUTSIDE RECORDS SUMMARY | ~2020-02-29 | XMS | Encounter Summary ---
Demographics + + + | Address | [address] | | | [place] [address] | + + + | Home Phone [...] Providers + +------+ + | Care Headlight Assembler Name | Role | Phone | [...] + + | 12/14/ | Refill | [facility] | Alanis, | Medication Refill | | 2019 | | MEDICINE [address] | MD Petrona | | | | | [place], | [address] [facility] | | | | | [place] [address] | [place] [address] | | | | | [phone] | [phone] | | | | | | | [...] | | | | | [place] [address] | | | | | | [phone] | | | | | | | | +--------+---------+ + + + documented as of this encounter Visit Diagnoses Not on filedocumented in this encounter"
--- OUTSIDE RECORDS SUMMARY | ~2020-02-29 | XMS | Encounter Summary ---
Demographics + + + | Address | [address] | | | [place] [address] | + + + | Home Phone [...] + +------+ + | Care Cash Management Coordinator Name | Role | Phone | + +------+ + | Pedrito Gutierrez MD | PCP | | + +------+ + Reason for Visit + +--------+ + | Reason | Onset | Comments | | | Date | | + +--------+ + | Refill Request | 11/03/ | [place] | | | 2008 | | + +--------+ + Encounter Details +--------+--------+ + + + | Date | Type | Department | Care Team | Description | +--------+--------+ + + + | 11/03/ | Refill | [facility] | Chris Padgett, | Refill Request | | 2007 | | Center [address] | [address] | (Sucralfate) | | | | Ave Mailcode: CH4S | [facility] | | | | | [facility] | [place], [place] | | | | | and [place], | [address] | | | | | [facility] | [phone] | | | | | [place], [place] | | | | | | [address] | | | | | | [phone] | | | +--------+--------+ + + + [...] Notes Telephone Encounter - Connie German - 11/04/2007 10:42 AM PDTFax received. Sherman dennis signed by Connie German at 11/04/2007 10:42 AM PDTdocumented in this encounter Plan of Treatment Not on filedocumented as of this encounter Visit Diagnoses Not on filedocumented in this encounter"
--- OUTSIDE RECORDS SUMMARY | ~2020-02-29 | XMS | Encounter Summary ---
Demographics + + + | Address | [address] | | | [place] [address] | + + + | Home Phone [...] Providers + +------+ + | Care Clinic Receptionist Name | Role | Phone | [...] of this encounter Progress Notes Interface, Hand Glass Cutter In - 01/12/2005 8:09 AM PDT [id number] GE[facility]AN[facility] Date: 02/27/2004 Clinic: [facility] Subjective: The patient underwent gastric bypass surgery in November 2003 under the care of Dr. Chris Padgett here at [facility]. She has been doing well after [...] been scheduled through the Sleep Clinic in [place]. Medications 1. Ranitidine 150 mg p.o. b.i.d. [...] months. Issac Meeks M.D. MONIQUE / SHARIF [id number] / [id number] / [id number] / cc: Joanna Arshad M.D. [address] [facility] [place], [place] [address] documented i n this encounter Plan of Treatment Not on filedocumented as of this encounter Visit Diagnoses Not on filedocumented in this encounter"
--- OUTSIDE RECORDS SUMMARY | ~2020-02-29 | XMS | Encounter Summary ---
Demographics + + + | Address | [address] | | | [place] [address] | + + + | Home Phone [...] Team Providers + +------+ + | Care Sander Portable Machine Name | Role | Phone | [...] of this encounter Progress Notes Interface, Equipment Service Engineer In - 01/03/2006 3:[address] [address] or November 01, 2002 Pedrito Gutierrez M.D[facility] [address] [place] [address] RE: BELINDA MEEHAN MR #: [id number] Dear Dr. Gutierrez: Belinda was seen in [...] Meeks. Sincerely, Maurilio Estrada M.D. / SHARIF [id number] / [id number] / [id number] / Tdocumented in this encounter Plan of Treatment Not on filedocumented as of this encounter Visit Diagnoses Not on filedocumented in this encounter"
--- OUTSIDE RECORDS SUMMARY | ~2020-02-29 | XMS | Encounter Summary ---
Demographics + + + | Address | [address] | | | [place] [address] | + + + | Home Phone [...] Providers + +------+ + | Care Manufacturing Clerk Name | Role | Phone | [...] | | | | | Procedures | [facility] | [facility] | | | | | CONSULT TO | Rd | Health and | | | | | NEUROLOGY | [place], [place] | Healing, | | | | | | [address] | [address], | | | | | | Phone: | [facility] Floor | | | | | | [phone] | [place], [place] | | | | | | | [address] | | | | | | | Phone: | | | | | | | [phone] | | | | | | | Fax: | | | | | | | [phone] | +--------+--------+ + + + + Encounter [...] | | | | | | [facility] | | | | | [facility] and Healing, | | | | | | Building | | | | | | Floor [place], [place] | | | | | | [address] | | | | | | [phone] | | | +--------+---------+ + + + [...] low blood pressure. 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 Social History Main Topics [...] touch symmetrically throughout. Cerebellar testing shows normal ekrvnb-vc-jhuo and finger tapping. On gait testing, she [...] the names of 3 headache specialists in [place]- Dr. Koby García, Dr. Dakota Sweet and [...]
--- OUTSIDE RECORDS SUMMARY | ~2020-02-29 | XMS | Encounter Summary ---
Demographics + + + | Address | [address] | | | [place] [address] | + + + | Home Phone [...] Providers + +------+ + | Care Gang Hemstitching Machine Operator Name | Role | Phone [...] as of this encounter Progress Notes Interface, Policy Specialist In - 09/13/2005 2:06 AM PST [id number] [facility] Date: 12/12/2004 Clinic: Endocrinology PHONE CONTACT NOTE The patient called me today after having surgery last week here at [facility]. Her concern was the development of 2 [...] cushion which I have ordered today through [employer], phone #[phone] and fax #[phone]. Today, the patient will monitor the decubiti closely and will be in touch with myself and her other physician depending on the progress. She also still has [address], which may be removed in one or two weeks when she returns to the Surgery Clinic at [facility]. Beto Meeks M.D. PD / HS [id number] / [id number] / [id number] / [id number] cc: Chris Padgett M.D. Electronically signed by Beto Meeks 09-12-2005 02:22:31 AM documented i n this encounter Plan of Treatment Not on filedocumented as of this encounter Visit Diagnoses Not on filedocumented in this encounter"
--- OUTSIDE RECORDS SUMMARY | ~2020-02-29 | XMS | Encounter Summary ---
Demographics + + + | Address | [address] | | | [place] [address] | + + + | Home Phone [...] + +------+ + | Care Manager Supply Name | Role | Phone | + [...] + + | 01/01/ | Refill | [facility] | Alanis, | Medication Refill | | 2017 | | MEDICINE [address] | MD Petrona | | | | | [place], | [address] [facility] | | | | | [place] [address] | [place] [address] | | | | | [phone] | [phone] | | | | | | | [...] | | | | | [place] [address] | | | | | | [phone] | | | | | | | | +--------+---------+ + + + documented as of this encounter Visit Diagnoses Not on filedocumented in this encounter"
--- OUTSIDE RECORDS SUMMARY | ~2020-02-29 | XMS | Encounter Summary ---
Demographics + + + | Address | [address] | | | [place] [address] | + + + | Home Phone [...] Providers + +------+ + | Care Manager Math Name | Role | Phone | + [...] + + | 03/04/ | Telephone | [facility] | Alanis, | Fever | | 2017 | | MEDICINE [address] | MD Petrona | | | | | [place], | [address] [facility] | | | | | [place] [address] | [place] [address] | | | | | [phone] | [phone] | | | | | | | [...] 03/04/2018 8:43 AM PDTPatient called back on th e status of message. elepho ne Encounter - [...] | | | | | [place] [address] | | | | | | [phone] | | | | | | | | +--------+---------+ + + + documented as of this encounter Visit Diagnoses Not on filedocumented in this encounter"
--- OUTSIDE RECORDS SUMMARY | ~2020-02-29 | XMS | Encounter Summary ---
Demographics + + + | Address | [address] | | | [place] [address] | + + + | Home Phone [...] Providers + +------+ + | Care Tower Excavator Operator Name | Role | Phone | [...]
--- OUTSIDE RECORDS SUMMARY | ~2020-02-29 | XMS | Encounter Summary ---
Demographics + + + | Address | [address] | | | [place] [address] | + + + | Home Phone [...] Providers + +------+ + | Care Inspector Poising Name | Role | Phone | + [...] as of this encounter Progress Notes Interface, Fire Patrol In - 12/11/2005 2:05 AM PDT [id number] GEOVANNI SKELTON Molly [id number] Clinic Date: 11/27/2005 Clinic: Rheumatology Primary Care [...] 6 months. Caitlin Rivera M.S., F.N.P. / [id number] / [id number] / [id number] / [id number] cc: Pedrito Gutierrez M.D. [address] [place] [address] Electronically signed by Caitlin Rivera 12-10-2005 09:27:21 AM documented i n this encounter Plan of Treatment Not on filedocumented as of this encounter Visit Diagnoses Not on filedocumented in this encounter"
--- OUTSIDE RECORDS SUMMARY | ~2020-02-29 | XMS | Encounter Summary ---
Demographics + + + | Address | [address] | | | [place] [address] | + + + | Home Phone [...] Providers + +------+ + | Care Communications Coordinator Name | Role | Phone | [...] [place] | | | | | [place] [address] | [place] [address] | | | | | [phone] | [phone] | | | | | | | [...] to seek edical attention at the in [place] as is out of the office this afternoon. Understan ds and accepts elephone Encounter - Long Owen - 11/30/2019 4:20 PM PDTMedication: zofran Strength: 4mgs Directions: 4 per day Quantity Remainin Pharmacy: [facility] [place] Call/Mail/Care Trainer/Fax: call Date of Last Refill: unknown Date [...] | | | | | [place] [address] | | | | | | [phone] | | | | | | | | +--------+---------+ + + + documented as of this encounter Visit Diagnoses + + | Diagnosis | + + | Nausea Nausea alone | + + documented in this encounter"
--- OUTSIDE RECORDS SUMMARY | ~2020-02-29 | XMS | Encounter Summary ---
Demographics + + + | Address | [address] | | | [place] [address] | + + + | Home Phone [...] Providers + +------+ + | Care Health Information Director Name | Role | Phone | + +------+ + | Petrona Thapa | PCP | | | MD | | | + +------+ + Reason for Visit + + + | Reason | Comments | + + + | Follow-up | Follow-up for hearing test results. | + + + Evaluate & Treat [...] | Services | y | Meniere's | Emmy-Tajt | MD [address] | | | Required | | disease, | i, | [address] | | | | | unspecified | [place] | [address] [place] | | | | | laterality | , [address] | [place] | | | | | | [address] | [address] Phone: | | | | | | [place], | [phone] | | | | | | [place] | Fax: | | | | | | [address] | [phone] | | | | | | Phone: | | | | | | | [phone] | | | | | | | Fax: | | | | | | | [phone] | | + + + + + + + Encounter Details +--------+ + + + + | Date | Type | Department | Care Team | Description | +--------+ + + + + | 12/20/ | Off-Site | [facility] | Emmy-Jeffti, | Sensorineural | | 2020 | Visit | OTOLARYNGOLOGY [address] | MD Petrona | hearing loss (SNHL) | | | | [address] | [address] [place] | of both ears | | | | [place] | [place] [address] | (Primary Dx); | | | | [address] | [phone] | Meniere's disease, | | | | [phone] | | unspecified | | | | | Ulysses Genao MD | laterality | | | | | [address] | | | | | | [address] [place] | | | | | | [address] | | | | | | | [...] encounter Progress Notes Ulysses Genao MD - 12/21/2019 11:00 AM PDTPatient comes in for follow-up on her hearing. She was seen 1 year ago and at that time was complaining about her hearing but she feels ove r the last year it has declined even further. She has a lot of difficulty understanding her son and always has to ask people to repeat what they are saying. She has a scoliosis and h ave problems with her balance. She walks with crutches bilaterally. Patient has a history of Mnire's disease. Examination: Patient is an alert 59-year-old patient in no acute distress. She communicate s well but is very hard of hearing. Skin of the face nose and ears all appears to be smooth and healthy. Ear canals are open and clean and drums were clear. In the oral cavity no ma ss or lesions are noted. No mass seen in the oropharynx and posterior pharyngeal wall is sm ooth. Tongue and soft palate are smooth to move symmetrically. Neck there is no mass or ly mphadenopathy noted. Thyroid, parotid and submandibular glands are all smooth. She moves h er neck without any pain or discomfort in the neck area noted. Audiogram: Patient speech sql developer dba threshold is 30 dB bilaterally. Her speech discriminat ion scores were both 92% bilaterally. Her tympanograms were both A tympanograms. At the 10 00 frequency in the right ear she drops down to 35 dB and in the left ear she drops down to 40 dB at the 2000 frequency. Impression: Bilateral sensorineural hearing loss. #2 Mnire's disease Plan: It is recommended that patient gets a hearing aids for both ears. She will follow-up with ENT as needed. Copy of the last 2 audiograms were given to the patient. documented in this encounter Plan of Treatment +--------+---------+ + + + | Date | Type | Specialty | Care Team | Description | +--------+---------+ + + + | 05/17/ | Office | Internal Medicine | EmmyCarmen, | | | 2019 | Visit | | MD Petrona | | | | | | [address] [place] | | | | | | [place] [address] | | | | | | [phone] | | | | | | | | +--------+---------+ + + + documented as of this encounter Visit Diagnoses + + | Diagnosis | + + | Sensorineural hearing loss (SNHL) of both ears - Primary | + + | Meniere's disease, unspecified laterality | + + documented in this encounter
--- OUTSIDE RECORDS SUMMARY | ~2020-02-29 | XMS | Encounter Summary ---
Demographics + + + | Address | [address] | | | [place] [address] | + + + | Home Phone [...] Team Providers + +------+ + | Care Pulmonary Care Nurse Name | Role | Phone [...] + + | 08/23/ | Refill | [facility] | Alanis, | Medication Refill | | 2017 | | MEDICINE [address] | MD Petrona | | | | | [place], | [address] [facility] | | | | | [place] [address] | [place] [address] | | | | | [phone] | | | | | | | [...] | | | | | [place] [address] | | | | | | [phone] | | | | | | | | +--------+---------+ + + + documented as of this encounter Visit Diagnoses Not on filedocumented in this encounter"
--- OUTSIDE RECORDS SUMMARY | ~2020-02-29 | XMS | Encounter Summary ---
Demographics + + + | Address | [address] | | | [place] [address] | + + + | Home Phone [...] + +------+ + | Care Industrial Engineering Technician Name | Role | Phone [...] | | sciatica | [address] | [place] [address] | | | | | Generalized | [place], | Phone: | | | | | osteoarthrit | [place] | [phone] | | | | | is | [address] | Fax: | | | | | | Phone: | [phone] | | | | | | [phone] | | | | | | | Fax: | | | | | | | [phone] | | +--------+ + + + + [...] [place] | | | | | [place] [address] | [place] [address] | | | | | [phone] | [phone] | | | | | | | [...] that the her previous pain clinic in [facility] on. [place], that managed her pain was [...] like to be referred to. . / [phone]. elephone Encounter - John Rapp MD - [...] stand she is so weak. Please advise. [phone] signed by Astrid Grant at 06/16/2017 9:33 [...] she can eat. Please call her at [phone] to discussElectr onically signed by Shalonda Mcdermott at 06/09/2017 1:21 PM PSTTelephone Encounter - Kiana Mcdermott - 06/05/2017 2:46 PM PSTContact/Caller: melissa-self Contact Number: [phone] Provider/Nurse: Emmy Reason for Call: Melissa stated [...] | | | | | [place] [address] | | | | | | [phone] | | | | | | | [...]
--- OUTSIDE RECORDS SUMMARY | ~2020-02-29 | XMS | Encounter Summary ---
Demographics + + + | Address | [address] | | | [place] [address] | + + + | Home Phone [...] Providers + +------+ + | Care Filling Station Equipment Mechanic Name | Role | Phone | + +------+ + | Pedrito Gutierrez MD | PCP | | + +------+ + Reason for Visit + +--------+ + | Reason | Onset | Comments | | | Date | | + +--------+ + | Lab findings, | 08/01/ | | | teaching, guidance, | 2008 [...] [facility] | [place], [place] | and counseling | | | | [address] | [address] | | | | | [address] | [phone] | | | | | [facility] | | | | | | Physician's | | | | | | [facility] [place], | | | | | | [place] [address] | | | | | | [phone] | | | +--------+ + + + [...] Notes Telephone Encounter - Mini Maciel - 08/08/2008 4:32 PM PST Addended by: MINI MACIEL on: 08/08/2008 4:32:29 PM Modules accepted: Orders elephone Encounter - W edMini morales - 08/08/2008 4:32 PM PSTS/w pt, we were waiting on the Vit D result. I rec' d this fax. I cancelled and re-ordered labs as external instead of clinic collect so I was able to enter results into epic. Results are entered and hard copy left again for PBD for belen conte. elephone Encounte r - Astrid Daniels - 08/04/2008 4:37 PM PSTPatient called back inquiring about status. Dr. Handy received outside results yesterday. Unable to page physician as unavailable. Patient w ould like to discuss. elephone Encounter - Beto Meeks MD - 08/03/2008 3:26 PM PSTI will stop by the clinic to look at the results this afte rnbuck. elephone Encounter - Mini Maciel - 08/02/2008 4:16 PM PSTI have rec'd a copy of the lab results and will h ave them available for PBD review 4:3 9 PM PSTTelephone Encounter - Sol Mcdonald - 08/01/2008 3:47 PM PSTPatient called. She wou ld like to know if Dr Meeks received her lab results from outside labs. Please call patient on home phone. Thanks docuindio barrera in this encounter Plan of Treatment Not [...]
--- OUTSIDE RECORDS SUMMARY | ~2020-02-29 | XMS | Encounter Summary ---
Demographics + + + | Address | [address] | | | [place] [address] | + + + | Home Phone [...] Providers + +------+ + | Care Topographical Surveyor Name | Role | Phone | [...] | Services | Therapy | Other | [facility] | HOSPITAL | | | Required | | idiopathic | i, | PHYSICAL | | | | | scoliosis, | Sulaiman-Gily | THERAPY [address] | | | | | lumbar | , MD [address] | [place] | | | | | region | [address] | [place], [place] | | | | | Chronic | [place], | [address] | | | | | bilateral | [place] | Phone: | | | | | low back | [address] | [phone] | | | | | pain with | Phone: | Fax: | | | | | bilateral | [phone] | [phone] | | | | | sciatica | Fax: | | | | | | Procedures | [phone] | | | | | | 07/20 [...] + + | 07/18/ | Office | [facility] INTER[facility] | Emmy-Tajti, | Chronic bilateral | | 2020 | Visit | MEDICINE [address] | MD Petrona | low back pain with | | | | [address] [place], | [address] | bilateral sciatica | | | | [place] [address] | [place] [address] | (Primary Dx); Other | | | | [phone] | [phone] | idiopathic | | | | | [...] issues: Patient recently did an MRI in [place], [place], after which she had a steroid [...] (chronic obstructive pulmonary disease) ([facility]) Depression Diarrhea Dumping syndrome Fall at home Fatigue fracture of vertebra Fibromyalgia Full dentures GERD (gastroesophageal reflux disease) Glaucoma Hyperparathyroidism (HCC) Hypothyroidism IBS (irritable bowel syndrome) Idiopathic scoliosis Leg edema Low back pain Lumbar postlaminectomy syndrome Lumbar radiculopathy primarily right 01/04/2015 Meniere syndrome Migraine with aura Migraines Muscle cramping Muscle spasm Myalgia Nausea Nonalcoholic hepatosteatosis Obesity Opioid dependence ([facility]) Orthostatic hypotension OLIVER (obstructive sleep apnea) Osteoarthritis, generalized Osteopenia Osteoporosis Palpitations Peripheral neuropathy Rheumatoid arthritis (HCC) Right arm pain 01/04/2015 RLS (restless legs syndrome) S/P lumbar fusion 01/04/2015 Scoliosis Sleep apnea Spondylosis with myelopathy, lumbar region Stroke ([facility]) Syncope Tremor Type II or unspecified [...] Procedure: COLONOSCOPY; Surgeon: Luther Brito MD; Location: [facility] MEDICAL PROCEDURE UNIT DILATION AND CURETTAGE OF UTERUS ELBOW SURGERY FINGER TRIGGER RELEASE 2002 FINGER TRIGGER RELEASE 2010 GASTRIC BYPASS SURGERY 2004 HYSTERECTOMY 05/14/1980 JOINT REPLACEMENT Bilateral 2007 2008 KNEE ARTHROSCOPY 2005 LAPAROSCOPY 01/27/2015 LAPAROTOMY 2008 ROTATOR CUFF REPAIR 2005 SPINE SURGERY TONSILLECTOMY 1964 UPPER GASTROINTESTINAL ENDOSCOPY N/A 12/18/2017 Procedure: EGD; Surgeon: Luther Brito MD; Location: [facility] MEDICAL PROCEDURE UNIT CURRENT MEDICATIONS Current [...] Allergen Reactions Ensure Diarrhea Food Diarrhea Lactose Wfabpjnhwt-Ils-Jfvp-Codeine Other (See Comments) Balance problems Codeine Sulfate Nausea Only Food Allergy Formula Diarrhea Ensure Levofloxacin Hives, Itching and Rash Butalbital Ropinirole Amitriptyline Hcl Other (See Comments) Confused and questionable for seizures Xvzighjpao-Emuw-Godeuoue Rash duplicate Slcctqcioa-Codk-Ygscwuri Hives and Rash Cephalexin Hives Ciprofloxacin Hives and Rash Clarithromycin Hives and Rash Clindamycin Hcl Hives and Rash Doxycycline Rash Duloxetine Other (See Comments) Migraines and nausea Ketorolac Hives Levofloxacin Hives and Rash Morphine Swelling Penicillins Hives and Rash Ropinirole Hcl Hives Sulfamethoxazole-Trimethoprim Hives and Rash Tramadol Hcl Nausea Only FOLLOW-UP No follow-ups on file. Notes: 1. Parts of this documentwere created using [employer] speech recognition software. As a resu lt, there may be unintended word spelling errors. Every attempt was made to correct the di ctation. 2. ISulaiman MD, personally provided the services described in this documen tation, as scribed by DUC Ybarra, in my presence, and it is both accurate an d complete. Sulaiman Thapa MD Electronically signed by Petrona Thpaa MD at 2019 1:02 PM PSTdocumented in this encounter Plan of Treatment +--------+---------+ + + + | Date | Type | Specialty | Care Team | Description | +--------+---------+ + + + | 05/17/ | Office | Internal Medicine | Alanis, | | | 2019 | Visit | | MD Petrona | | | | | | [address] [place] [address] [place] | | | | | | [place] [address] | | | | | | [phone] | | | | | | | [...] ST. | [address] | [place], [place] | [phone] | | [facility] | | [address] | | | - LABORATORY | | [...] | | | | First dose on [facility] 10/15/17 at 1215 | | | [...]
--- OUTSIDE RECORDS SUMMARY | ~2020-02-29 | XMS | Encounter Summary ---
Demographics + + + | Address | [address] | | | [place] [address] | + + + | Home Phone [...] Providers + +------+ + | Care Drop Forger Helper Name | Role | Phone [...] + | 03/05/ | Telephone | [facility] INTER[facility] | Alanis, | Other | | 2017 | | MEDICINE [address] | MD Petrona | | | | | [place], | [address] [facility] | | | | | [place] [address] | [place] [address] | | | | | [phone] | [phone] | | | | | | | [...] - 03/05/2018 9:19 AM PDTShalonda nurse from [facility] with nurse about patient, Shalonda can be reached at [phone] ically signed by Sia Bai at 03/05/2018 9:20 AM PDTdocumented in this encounter Plan of Treatment +--------+---------+ + + + | Date | Type | Specialty | Care Team | Description | +--------+---------+ + + + | 05/17/ | Office | Internal Medicine | Alanis, | | | 2019 | Visit | | MD Petrona | | | | | | [address] [facility] | | | | | | [place] [address] | | | | | | [phone] | | | | | | | | +--------+---------+ + + + documented as of this encounter Visit Diagnoses + + | Diagnosis | + + | Non-intractable vomiting with nausea, unspecified vomiting type - Primary | + + documented in this encounter"
--- OUTSIDE RECORDS SUMMARY | ~2020-02-29 | XMS | Encounter Summary ---
Demographics + + + | Address | [address] | | | [place] [address] | + + + | Home Phone [...] Providers + +------+ + | Care Sewer Line Repairer Name | Role | [...] + + | 01/14/ | Refill | [facility] | Alanis, | Medication Refill | | 2017 | | MEDICINE [address] | MD [place] | | | | | [place], | [address] [facility] | | | | | [place] [address] | [place] [address] | | | | | [phone] | [phone] | | | | | | | [...] | | | | | [place] [address] | | | | | | [phone] | | | | | | | | +--------+---------+ + + + documented as of this encounter Visit Diagnoses Not on filedocumented in this encounter"
--- OUTSIDE RECORDS SUMMARY | ~2020-02-29 | XMS | Encounter Summary ---
Demographics + + + | Address | [address] | | | [place] [address] | + + + | Home Phone [...] Team Providers + +------+ + | Care Choker Setter Name | Role | Phone | [...] of this encounter Progress Notes Interface, Shipping Hand In - 01/12/2005 6:32 AM PDT Referred From and Faxed To: Chris Padgett M.D., General Surgery. Referred To: Outpatient nutrition clinic. Consulting Provider: Svetalna Maki R.D. Consultation Date: 12/19/2003 Chief Complaint: [...] she was going to go to the [employer] food store and try to find another [...] two months. Svetlana Maki R.D. SR/x35 P [id number] signed by Interface, Shipping Hand In at 01/12/2005 6:32 AM [facility] umented in this encounter Plan of Treatment Not on filedocumented as of this encounter Visit Diagnoses Not on filedocumented in this encounter"
--- OUTSIDE RECORDS SUMMARY | ~2020-02-29 | XMS | Encounter Summary ---
Demographics + + + | Address | [address] | | | [place] [address] | + + + | Home Phone [...] Providers + +------+ + | Care Custom Shoe Designer And Maker Name | Role | Phone | + +------+ + | Pedrito Gutierrez MD | PCP | | + +------+ + Encounter Details +--------+ + + + + | Date | Type | Department | Care Team | Description | +--------+ + + + + | 03/08/ | Telephone | Orthopaedics at | Hia [place], | | | 2008 | | [facility] [address] | | | | | | [address] | | | | | | Mailcode: PV430 | | | | | | [facility] | | | | | | [place], [place] | | | | | | [address] | | | | | | [phone] | | | +--------+ + + + [...] Notes Telephone Encounter - Lyle Esquivel - 03/08/2009 10:49 AM PDTTried to call Ms. Meehan to inform that her Oxycodone 10mg Rx script has been mailed to her home address. Unfortunate ly, there was no answer & no voice mail, the phone just continued to constantly ring. If pt calls back, please inform that this script has been mailed out today on 03/08/09 and francesco conklin receive this within the next few business days. elephone Encounter - Donna Clancy PA - 03/08/2009 9: 57 AM PDTPrinted. Please mail. elephone Encounter - Mary Anne Mar - 03/08/2009 9:48 AM PDTSurgical Procedure: Procedures Performed: 1. Curettage and bone grafting of the left scapular lesion. 2. Open biopsy, left scapular lesion. Date of Surgery: 02.22.09 Medication oxycodone Quantity 80 Dosage: 10mg How often are you taking it?: 2 every 4-5 HRS Last filled 9-10-09 Last filled by julianna adams Is your surgical pain improving?: yes Have you been able to ween down?: yes Can you sisal picker the script if need to or should it be mailed?: Pick-up/mail MAIL Pharmacy: Pharmacy Preferences: Krystle[facility]enn[facility]cd[facility] [facility] Milly [place] [address] [facility] [place] [phone] documented in this encounter Plan of Treatment Not on filedocumented as of this encounter Visit Diagnoses + + | Diagnosis | + + | 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
--- OUTSIDE RECORDS SUMMARY | ~2020-02-29 | XMS | Encounter Summary ---
Demographics + + + | Address | [address] | | | [place] [address] | + + + | Home Phone [...] Providers + +------+ + | Care Automation Specialist Name | Role | Phone | [...] as of this encounter Progress Notes Interface, Fish Net Maker In - 01/12/2005 6:46 AM PDTClinic Date: 11/27/2003 Clinic: Surgery Clinic Subjective: This patient of Dr. Chris Padgett walks into clinic today to discuss her laparoscopic incisions and a lesion on her lower back. She was discharged from [facility] approximately 36 hours ago following a laparoscopic [...] discharge and would like to proceed to [place], where her home is. She agrees to [...] any additional questions. Liliya Kirkpatrick. / SHARIF [id number] / [id number] / [id number] / [id number] Tdocumented in this encounter Plan of Treatment Not on filedocumented as of this encounter Visit Diagnoses Not on filedocumented in this encounter"
--- OUTSIDE RECORDS SUMMARY | ~2020-02-29 | XMS | Encounter Summary ---
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 12/04/2006 Belinda Meehan is a 46 y.o. female [facility] Comprehensive [...] now. She deneis sweating however [facility] aqu[facility] pool program referral of her orthopedist physician. She reports going to [employer] pool three times a week for the [...] the past week of Fentanyl patch and Benezett. Trileptal he lps with right leg pain and sleep. "been sleeping great". Expectations for this visit include : discussing the sticking problems with the fentanyl [facility] and her insurance not being willing prescribe Benezett. There have been no other change in [...] an d her insurance stopped coverage of Benezett. I believe doing pool therapy three times [...] might be d iverting or using her Benezett? Until I know more I will not be prescribing a breakthrough sina n medication but am willing to prescribe early for her fentanyl. I have asked Belinda to shredder picker and be responsible for her own medication shredder picker. I discussed with Tasha Nolasco CMA the issue of Insurance PA for Benezett this was in progress as of the time the patient was here. At the time I completed this note we had word that Ins urance would not approve coverage. I will discuss this with Belinda once I know her story o n where the dispensed #70 Benezett is. [ Tasha reported calling [employer] who reported: Belinda's s on picking up [...] with each exchange. 3. Patient instructed to shredder picker and be responsible for her own medications. 4. Follow up in two weeks to review pain management. Once she is again stable on the fen tanyl patch I will transfer her prescribing to Dr. Gutierrez. She has completed the Multidisci plinary patient Care program here at the [facility]. DELFINA MOLINA [facility] Mail code CH 4P [facility] [address] [place] [address] asha Nolasco - 12/04/2006 7:43 AM [...]
--- OUTSIDE RECORDS SUMMARY | ~2020-02-29 | XMS | Encounter Summary ---
Demographics + + + | Address | [address] | | | [place] [address] | + + + | Home Phone [...] Providers + +------+ + | Care Artificial Plastic Eye Maker Name | Role | Phone | + +------+ + | Sulaiman Carrera MD | PCP | | + +------+ + Encounter Details +--------+ + + + + | Date | Type | Department | Care Team | Description | +--------+ + + + + | 01/02/ | Ancillary | Registration [id number] | Beto Meeks MD | | | 2004 | Registratio | [facility] | [address] | | | | n | [place] Mailcode: [id number] | [place], [place] | | | | | [place], [place] | [address] | | | | | [address] | [phone] | | | | | [phone] | | | +--------+ + + + [...] | + + + + + | [facility] DEPARTMENT OF | [address] | [place] [address] | | | PATHOLOGY | [address] | | | + + + + + | [facility] DEPARTMENT OF | [address] | [place] [address] | | | PATHOLOGY | [address] [...] DEPARTMENT OF | [address] | [place] [address] | | | PATHOLOGY | [address] | | | + + + + + | [facility] | [address] | [place] [address] | | | PATHOLOGY | [address] [...] uIU/ml | | | | | [facility] | | | | | | Laboratories. | | | | + + + + + + + + | Specimen | + + | | + + + + + + + | Performing | Address | City/State/Zipcode | Phone Number | | Organization | | | | + + + + + | [facility] | [address] | [place] [address] | | | LABORATORY | | | | + + + + + documented in this encounter Visit Diagnoses Not on filedocumented in this encounter"
--- OUTSIDE RECORDS SUMMARY | ~2020-02-29 | XMS | Encounter Summary ---
Demographics + + + | Address | [address] | | | [place] [address] | + + + | Home Phone [...] Providers + +------+ + | Care Rn Social Services Name | Role | Phone | [...] + + | 11/23/ | Telephone | [facility] | Luther Brito MD | Other | | 2017 | | GASTROENTEROLOGY | [address] [facility] | | | | | [address] | [place], [place] | | | | | [address] [place], [place] | [address] | | | | | [address] | [phone] | | | | | [phone] | | | +--------+ + + + [...] Dr. Brito / Dixie Call back number: [phone] documented in this encou nter Plan of [...] | | | | | [place] [address] | | | | | | [phone] | | | | | | | | +--------+---------+ + + + documented as of this encounter Visit Diagnoses Not on filedocumented in this encounter"
--- OUTSIDE RECORDS SUMMARY | ~2020-02-29 | XMS | Encounter Summary ---
[...] Providers + +------+ + | Care Information Assistant Name | Role | Phone | + +------+ + | Pedrito Gutierrez MD | PCP | | + +------+ + Encounter Details +--------+---------+ + + + | Date | Type | Department | Care Team | Description | +--------+---------+ + + + | 07/30/ | Office | [facility] | Eliezer Ruano, | Abdominal Pain | | 2006 | Visit | [place] [address] | [address] | (Primary Dx) | | | | Ave Mailcode: CH4S | [address] | | | | | Center for [facility] | [facility] [place] | | | | | and Healing, | [address] | | | | | [facility] 1, 6th | [phone] | | | | | Floor [place], [place] | | | | | | [address] | | | | | | [phone] | | | +--------+---------+ + + + [...] the resident s note. ELIEZER RUANO MD [facility] [address] [facility], [address] [place] [address] hMalena leary - 07/30 4:09 PM PSTS: [...]
--- OUTSIDE RECORDS SUMMARY | ~2020-02-29 | XMS | Encounter Summary ---
Demographics + + + | Address | [address] | | | [place] [address] | + + + | Home Phone [...] Providers + +------+ + | Care Wharf Laborer Name | Role | Phone | [...] | | | [facility] | [place], [place] | | | | | [address] | [address] | | | | | [address] | [phone] | | | | | [facility] | | | | | | Physician's | | | | | | [facility] [place], | | | | | | [place] [address] | | | | | | [phone] | | | +--------+ + + + [...]
--- OUTSIDE RECORDS SUMMARY | ~2020-02-29 | XMS | Encounter Summary ---
Demographics + + + | Address | [address] | | | [place] [address] | + + + | Home Phone [...] Providers + +------+ + | Care Clinical Mental Health Counselor Name | Role | Phone | [...] Required | | | i, | [address] | | | | | osteoporosis | Sulaiman[place]Russell | [place], | | | | | without | , MD [address] | [place] [address] | | | | | current | [address] | Phone: | | | | | pathological | [place], | [phone] | | | | | fracture | [place] | Fax: | | | | | | [address] | [phone] | | | | | | Phone: | | | | | | | [phone] | | | | | | | Fax: | | | | | | | [phone] | | +--------+ + + + + [...] Required | | | i, | [address] | | | | | osteoporosis | Sulaiman-Russell | [place], | | | | | without | , [address] | [place] [address] | | | | | current | [address] | Phone: | | | | | pathological | [place], | [phone] | | | | | fracture | [place] | Fax: | | | | | | [address] | [phone] | | | | | | Phone: | | | | | | | [phone] | | | | | | | Fax: | | | | | | | [phone] | | +--------+ + + + + + Encounter Details +--------+ + + + + | Date | Type | Department | Care Team | Description | +--------+ + + + + | 10/14/ | Hospital | [facility] | Alanis, | Age-related | | 2018 | Encounter | MED CTR OP INFUSION | MD [place] | osteoporosis without | | | | [address] | [address] [facility] | current | | | | [place] | [place] [address] | pathological | | | | [address] | [phone] | fracture (Primary | | | | [phone] | | Dx) | +--------+ + + [...] signed by: Lisa Warren RN 10/14/2018 11:41 eccio, Lisa L, RN - 0 10/14/2018 10:42 AM PDT [...] | | | | | | [address] [place] [address] [place] | | | | | | [place] [address] | | | | | | [phone] | | | | | | | [...]
--- OUTSIDE RECORDS SUMMARY | ~2020-02-29 | XMS | Encounter Summary ---
Demographics + + + | Address | [address] | | | [place] [address] | + + + | Home Phone [...] Providers + +------+ + | Care Reading Tutor Name | Role | Phone | [...] | | | | | | | [address] | | | | | | | [place] | | | | | | | Pavilion | | | | | | | [place], [place] | | | | | | | [address] | | | | | | | Phone: | | | | | | | [phone] | | | | | | | Fax: | | | | | | | [phone] | +--------+--------+ + + + + Encounter Details +--------+ + + + + | Date | Type | Department | Care Team | Description | +--------+ + + + + | 02/22/ | Hospital | [facility] [address] | Hai Hoyos, | | | 2008 | Encounter | [address] | | | | | | [address] [place] | | | | | | [place], | | | | | | [place] [address] | | | | | | [phone] | | | +--------+ + + + [...] Hospital Course: Patient was admitted to [facility] short stay surgery. Patient was [...] business hours at or page the orthopedist consultant electronics after regular business hours at [phone]. If you have any of the following: [...] . Follow Up Tests: (Tests at [facility] must be entered into Epic) [...] Hospital Course: Patient was admitted to [facility] short stay surgery. Patient was [...] business hours at or page the orthopedist consultant electronics after regular business hours at [phone]. If you have any of the following: [...] . Follow Up Tests: (Tests at [facility] must be entered into Epic) [...] Accompanied by: Family/Responsible Constitution Party Discharge Nurse: LONI KOWALSKI RN Date: [...] documented as of this encounter Procedure Notes Other, [facility] - 02/22/2009 1:00 PM PDT Other, 02/22/2009 1:00 PM PDT Other, [facility] 02/22/2009 1:00 PM PDTAssociated Order(s): ANESTHESIA/SEDATION; ANESTHE JES/SEDATION Other, [facility] - 02/22/2009 1:00 PM PDT Other, [facility] 02/22/2009 1:00 PM PDTAssociated Order(s): ANESTHESIA/SEDATION; ANESTHE JES/SEDATION Other, [facility] - 02/22/2009 1:00 PM PDTAssociated Order(s): PATHOLOGY; PATHOLOGY Other, [facility] - 02/22/2009 1:00 PM PDTAssociated Order(s): ANESTHESIA/SEDATION; ANESTHE JES/SEDATION Other, [facility] - 02/22/2009 1:00 PM PDTAssociated Order(s): ANESTHESIA/SEDATION; ANESTHE JES/SEDATION Hai Hoyos MD - 02/22/2009 9:35 AM PDTAssociated Order(s): PROCEDURE NOTEName of the Patient: Belinda Meehan Date: 02/22/2009 9:35 AM Author: Hai Hoyos MD Preoperative Diagnosis: left symptomatic scapula lesion Postoperative Diagnosis: Same Procedure Performed: curettage and bone graft left scapula lesion Open biopsy left scapula lesion Attending Physician: Hai Hoyos MD Assistants: NGUYỄN Adkins served as my dam tender assistant because no other qualified help was available. Anesthesia: general, local Estimated Blood Loss: min Complications: none Specimens: left scapula lesion for frozen, permanent, and cultures Implants: 1cc DBX Findings: frozen consistent with an osteoblastoma Drains: none Prior to the beginning of the procedure the team paused to verify the patient's identity, a s well as the procedure to be performed and the correct side/site. All equipment required w as ready and available. The patient was positioned appropriately. Preoperative antibiotics were not administered. Disposition: The patient was successfully awoken and transferred to PACU in the stable cond ition Plan: -weight bearing: WBAT LUE, no restrictions -postop Abx: none -drains: none -DVT prophylaxis: ambulation -d/c home: from PACU, f/u with me in 2 weeks for a wound check and to review final patholog y -may remove dressing in 2 days, may shower, do not submerge incision Hai Hoyos MD ther, Faculty - 03/2009 12:00 AM PDTAssociated Order(s): ANESTHESIA/SEDATION; ANESTHESIA/SEDATION Hai Hoyos MD - 02/22/2009 12:00 AM PDTAssociated Order(s): OPERATION RECORD; OPER ATION RECORD [id number] [facility] Molly [id number] Date: 02/22/2009 Attending Surgeon: Hai Hoyos MD Parachute Repairer(s): Shantel Whipple Preoperative Diagnosis(es): Left symptomatic scapula lesion. Postoperative Diagnosis(es): Left symptomatic scapula lesion. Procedures Performed: 1. Curettage and bone grafting of the left scapular lesion. 2. Open biopsy, left scapular lesion. Donna Clancy served as my dam tender assistant because no other qualified help was available. Anesthesia: General plus local. EBL: Minimal. Complications: None. Specimens: Left scapular lesion for frozen and permanent section as well as cultures. Implants: 1 cc DBX. Findings: Frozen consistent with an osteoblastoma. Drains: None. Disposition: The patient was successfully awoken and transferred to PACU in stable condition. Postoperative Plan: The patient to be weightbearing as tolerated about the left upper extremity without restrictions. She is to be discharged home for the PACU today and follow up with me in 2 weeks for wound check and to review final pathology. She may remove her dressing in 2 days. She may shower. She is not to submerge the incision. Indications: Ms. Meehan is a 49-year-old woman who presented to me with complaints of significant pain about the posterior aspect of the left shoulder at the area of the scapula. The patient was discretely tender over this area. Radiographic imaging demonstrated a lesion within the scapular spine. This was reviewed with the radiologist, and this was felt to be too large to be amenable to radiofrequency ablation. Therefore, my recommendation is to proceed with open biopsy, curettage, and bone grafting if this was found to be consistent with a benign lesion. All the risks and benefits of this procedure were explained to the patient. All questions were answered and informed consent was obtained. Procedure: The patient came to the operating room on 02/22/09. In the preoperative holding area, the patient was met and the operative site, which was the left upper extremity, was then signed by me. The patient was then transferred to the operative room suite, placed on the operating table in supine position, and an airway was established. At this point, she was then rolled into the lateral decubitus position with the left side up. An axillary roll was then placed in the ideal position. The down leg was then well padded. At this point, the left upper extremity was then prepped and draped in the usual sterile fashion. A timeout was then taken to verify the patient, site, and procedure. Preoperative antibiotics were not administered because I did not want to compromise my intraoperative cultures. Vancomycin was administered after cultures were obtained. Open biopsy of the left scapular lesion: At this point, I then outlined the scapular spine about the posterior aspect of the scapula. I then used a #10 blade in order to incise down to the dermis and subcutaneous tissues until I reached the subcutaneous border of the scapular spine. I then flushed the periosteum directly overlying the scapular spine. This was then dissected proximally and distally, which gave me direct visualization about the scapular spine. I then used a TPS shiela in order to perform my cortical perforation at the level of this lesion, which was previously visualized on the preoperative CT scan. At this point, once I created a cortical perforation over the lesion, I then used curettes in order to obtain intralesional tissue from this lesion. At this point, this tissue was then sent to Pathology as a frozen section. I also obtained a portion of tissue and sent it as cultures, which included aerobic, anaerobic, AFB, fungal, Nocardia, and Brucella. At this point, I then awaited my frozen section results. This was found to be consistent with osteoblastoma. There was no evidence of malignancy. I therefore proceeded with curettage and bone grafting. Curettaging and bone grafting of the left scapular lesion: At this point, I then performed an extended intralesional curettage. This was done by first taking the TPS shiela and then creating a large cortical perforation about the posterior aspect of the scapular spine, so I was able to visualize the entirety of the lesion. Once this was done, I then used a curette in order to curettage intralesional, may be entirety of the lesion. I then again used a TPS shiela in order to meticulously extend my intralesional curettage circumferentially around the entirety of the lesion. Once this was done, the wound was then copiously irrigated. Meticulous hemostasis was then obtained. I then placed 1 cc of DBX into the scapular lesion in order to fill the void. At this point, I then proceeded with my closure. This was done by first 0 Vicryls to reapproximate the periosteum and muscular fat and perimuscular fascia. I then used 2-0 Vicryl for the superficial soft tissues and 4-0 subcuticular Caprosyn and Dermabond for the skin. Local anesthetic was applied followed by sterile dressing. The patient was then successfully awoken and transferred to PACU in stable condition. Postoperative plan is as aforementioned. MD ARTIS Wei / SHARIF [id number] / [id number] / [id number] / ther, Faculty - 4:17 PM PDT Other, - 02/21/2009 4:17 PM PDT Other, - 02/21/2009 4:16 PM PDT documented in this encounter Miscellaneous Notes Scan - Other, - 02/22/2009 1:00 PM PDT Scan - Other, - 02/22/2009 1:00 PM PDT Scan - Other, - 02/22/2009 1:00 PM PDT Scan - Other, - 02/22/2009 1:00 PM PDT documented in this encounter Plan [...] Procedure Note | + + | Vilma iGbbons - 02/22/2009 1:00 PM PDT | | [...] [facility] [place] [address] | [place] [address] | | | PATHOLOGY | [address] [...] [facility] [place] | [address] | [place] [address] | | | PATHOLOGY | [address] [...] | | | | | performed at [place] | | | | | | [facility] | | | | | | Laboratory. | | | | + + + + + + + + | Specimen | + + | | + + + + + + + | Performing | Address | City/State/Zipcode | Phone Number | | Organization | | | | + + + + + | [facility] [place] | [address] | [place] [address] | | | PATHOLOGY | [address] [...] [facility] [place] | [address] | [place] [address] | | | PATHOLOGY | [address] [...] | | | | | performed at [place] | | | | | | [facility] | | | | | | [...] [facility] [place] | [address] | [place] [address] | | | PATHOLOGY | [address] [...] [facility] [place] [address] | [place] [address] | | | PATHOLOGY | [address] [...] Lab) | | | | | | [facility] | | | | | | [address] | | | | [address] | | | | | | [place] [address] | | | | + + + + + + + + | Specimen | + + | | + + + + + + + | Performing | Address | City/State/Zipcode | Phone Number | | Organization | | | | + + + + + | [facility] | [address] | [facility] [place] [address] | | | PATHOLOGY | [address] [...] Performed At | + + + | [id number] | | | [id number] | | | [place] [id number] | | | Date: 02/22/2009 Attending Surgeon: | | | Hai Hoyos MD Parachute Repairer(s): | | | Donna Clancy, P.A. Preoperative | | | Diagnosis(es): Left symptomatic scapula lesion. Postoperative | | | Diagnosis(es): Left symptomatic scapula lesion. Procedures | | | Performed: 1. Curettage and bone grafting of the left scapular | | | lesion. 2. Open biopsy, left scapular lesion. | | | Donna Clancy served as my dam tender assistant because no other qualified | | [...] | aforementioned. MD ARTIS Wei / SHARIF [id number] / | | | [id number] / [id number] / | | + + + + + | Procedure Note | + + | Hai Hoyos MD - 02/22/2009 12:00 AM PDT [id number] | | [id number] [place] | | [id number] Date: 02/22/2009 Attending Surgeon: Hai | | MD Romain Parachute Repairer(s): Shantel Whipple Preoperative | | Diagnosis(es):Left symptomatic scapula lesion. Postoperative Diagnosis(es):Left | | symptomatic scapula lesion. Procedures Performed:1. Curettage and bone grafting of | | the left scapular lesion.2. Open biopsy, left scapular lesion. Donna Clancy | | served as my dam tender assistant because no other qualified help wasavailable. [...] scapular spine. I then used a TPS sheila in order | | to perform mycortical [...] plan is as aforementioned. CHARU Wei / [id number] / [id number] / [id number] /D: | | 02/22/2009T: 02/22/2009 | | [...] | | | |Hai Hoyos MD | |ARTIS / SHARIF | |[id number] / [id number] / [id number] / | | | | | | [...] Mccarthy/Resident | | | | | | andYasmin Argueta, | | | | | | Joanna/Pathologist | | | | | | Clinical [...] Argueta | | | | | | M.D.PathologistElectroni | | | | | | mary [...] [facility] [place] | [address] [place] [address] | [place] [address] | | | PATHOLOGY | [address] | | | + + + + + | [facility] [place] | [address] [place] [address] | [place] [address] | | | PATHOLOGY | [address] [...]
--- OUTSIDE RECORDS SUMMARY | ~2020-02-29 | XMS | Encounter Summary ---
Demographics + + + | Address | [address] | | | [place] [address] [...] Team Providers + +------+ + | Care Edi Architect Name | Role | Phone | [...] | Pain | Diagnoses | Miracle, | [place], | | | | Management | LBP (low | NIHARIKA Jean | Lukasz Rhodes, PhD | | | | | back pain) | [address] | [address] | | | | | DJD | [address] | Ave | | | | | (degenerativ | [place], [place] | [place] | | | | | e joint | [address] | [address] | | | | | disease) of | | Phone: | | | | | knee Knee | | [phone] | | | | | pain Major | | Fax: | | | | | depressive | | [phone] | | | | | disorder, | [...] 11/23/ | Office | [facility] | Lukasz Charles, | Major Depressive | | 2007 | Visit | [address] | PhD [address] | Disorder, Recurrent | | | | [facility] | [place], [place] | Episode, Moderate | | | | and Healing, | [address] | ([facility]); LBP (Low Back | | | | | [phone] | Pain); Bilateral | | | | Floor [place], [place] | | Knee Pain; | | | | [address] | | Adjustment Disorder | | | | [phone] | | with Anxiety | +--------+---------+ + [...] frustra tion by being less active. Diagnosis: [place] I: 1. (296.32) Major depressive disorder, recurrent, moderate. 2. (309.24) Adjustment disorder with anxiety. 3. 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 [place] II: Deferred [place] III: abdominal pain, migraine headache, low back pain. [place] IV: low finances [place] V: GAF 55-60 Plan: return with next medical follow-up appointment. Check mood, abdominal pain, relaxat ion, activity, distraction. Continue cognitive/behavioral therapy. Total time spent with patient was approximately 45 minutes. LUKASZ CHARLES PHD [facility] [facility], [address]th [place] [address] [facility] Plan of Treatment + + +--------+ + + | Name | Type | Priori | Associated Diagnoses | Order Schedule | | | | ty | | | + + +--------+ + + | SD PSYCHOTHERPY, | Procedures | Routin | Major Depressive | Ordered: 11/24/2007 | | OFFICE (50-93) | | e | Disorder, Recurrent | [...]
--- OUTSIDE RECORDS SUMMARY | ~2020-02-29 | XMS | Encounter Summary ---
Demographics + + + | Address | [address] | | | [place] [address] | + + + | Home Phone [...] Providers + +------+ + | Care Client Program Manager Name | Role | Phone [...] 2015 | | GASTROENTEROLOGY | [address] [place] [address] | | | | | [address] [facility] | [address] [place] | | | | | [address] [place] | [address] | | | | | [address] | | | | | | [phone] | | | +--------+ + + + [...] | | | | | [place] [address] | | | | | | [phone] | | | | | | | | +--------+---------+ + + + documented as of this encounter Visit Diagnoses Not on filedocumented in this encounter"
--- OUTSIDE RECORDS SUMMARY | ~2020-02-29 | XMS | Encounter Summary ---
Demographics + + + | Address | [address] | | | [place] [address] | + + + | Home Phone [...] Team Providers + +------+ + | Care All Around Presser Name | Role | Phone | + +------+ + PCP | Unavailable | + +------+ + Encounter Details +--------+ + + + + | Date | Type | Department | Care Team | Description | +--------+ + + + + | 12/21/ | Results | Rheumatology | Caitlin Rivera, | | | 2003 | Only | [place] [address] | HUMAN RESOURCE OFFICER | | | | | Sharmila Schilling | | | | | | Mailcode: [id number] | | | | | | Outpatient Clinic | | | | | | Building [facility] | | | | | | [place] [address] | | | | | | [phone] | | | +--------+ + + + [...] Iron and TIBC, Serum Test performed by [facility] | | | [facility]. | | + + + + + + + + | Performing | Address | City/State/Zipcode | Phone Number | | Organization | | | | + + + + + | [facility] | [address] | [place] [address] | | | LABORATORY | | | [...] Colin | | | | | | [facility] | | | | | | Laboratories. | | | | + + + + + + + + | Specimen | + + | | + + + + + + + | Performing | Address | City/State/Zipcode | Phone Number | | Organization | | | | + + + + + | [facility] | [address] | [place] [address] | | | LABORATORY | | | [...] | | | | | performed at [place] | | | | | | [facility] | | | | | | Laboratory | | | | + + + + + + + + | Specimen | + + | | + + + + + + + | Performing | Address | City/State/Zipcode | Phone Number | | Organization | | | | + + + + + | [facility] | [address] | [place] [address] | | | LABORATORY | | | | + + + + + documented in this encounter Visit Diagnoses Not on filedocumented in this encounter"
--- OUTSIDE RECORDS SUMMARY | ~2020-02-29 | XMS | Encounter Summary ---
Demographics + + + | Address | [address] | | | [place] [address] | + + + | Home Phone [...] Team Providers + +------+ + | Care Vault Clerk Name | Role | Phone | [...] | | | [facility] | [place], [place] | | | | | [address] | [address] | | | | | [address] | [phone] | | | | | Physician's | | | | | | Pavilion, [facility] floor | | | | | | [place], [place] | | | | | | [address] | | | | | | [phone] | | | +--------+ + + + [...] | | | | | performed at [place] | | | | | | [facility] [...] + + + | [facility] | [address] | [place] [address] | | | LABORATORY | | | [...] | [facility] | [address] | [place] [address] | | | LABORATORY | | | [...] | NaomiU/ml | | | | | [facility] [...] | [facility] | [address] | [place] [address] | | | LABORATORY | | | [...] | + + + + + | [facility] | [address] | [place] [address] | | | LABORATORY | | | [...] [facility] [place] | [address] | [place] [address] | | | PATHOLOGY | [address] | | | + + + + + | [facility] [place] [place] | [address] [place] [address] | [place] [address] | | | PATHOLOGY | [address] [...] DEPARTMENT OF | [address] | [place] [address] | | | PATHOLOGY | [address] | | | + + + + + | [facility] [place] | [address] | [place] [address] | | | PATHOLOGY | [address] | | | + + + + + documented in this encounter Visit Diagnoses Not on filedocumented in this encounter"
--- OUTSIDE RECORDS SUMMARY | ~2020-02-29 | XMS | Encounter Summary ---
Demographics + + + | Address | [address] | | | [place] [address] | + + + | Home Phone [...] Providers + +------+ + | Care Food Chemist Name | Role | Phone | [...] as of this encounter Progress Notes Interface, Analytical Lead In - 09/13/2005 2:06 AM PST [id number] [facility] Date: 01/02/2005 Clinic: Endocrinology [...] months. Beto Meeks M.D. PD / HS [id number] / [id number] / [id number] / [id number] cc: Chris Padgett M.D. Electronically signed by Beto Meeks 09-12-2005 02:22:56 AM documented i n this encounter Plan of Treatment Not on filedocumented as of this encounter Visit Diagnoses Not on filedocumented in this encounter"
--- OUTSIDE RECORDS SUMMARY | ~2020-02-29 | XMS | Encounter Summary ---
Demographics + + + | Address | [address] | | | [place] [address] | + + + | Home Phone [...] + +------+ + | Care Vice President Global Digital Marketing Name | Role | Phone [...] | Procedures | [address] | [place] | | | | | CONSULT TO | [address] | [address] | | | | | GI PROCEDURE | Rd | floor | | | | | UNIT: EGD | [place], [place] | [place], [place] | | | | | | [address] | [address] | | | | | | Phone: | Phone: | | | | | | [phone] | [phone] | | | | | | | Fax: | | | | | | | [phone] | +--------+--------+ + + + + Consultation [...] | | | | | UNIT: | [place], [place] | [place], [place] | | | | | COLONOSCOPY | [address] | [address] | | | | | | Phone: | Phone: | | | | | | [phone] | [phone] | | | | | | | Fax: | | | | | | | [phone] | +--------+--------+ + + + + Reason [...] + | 03/10/ | Office | [facility] of | Carlos Arreola, | Chronic Abdominal | | 2005 | Visit | Gastroenterology/Hep | MD [address] | Pain; Iron | | | | atology [address] | Deficiency | | | | [address] | [place] [address] | | | | | Mailcode: PV310 | [phone] | | | | | Physician's Pavilion | | | | | | [address] | | | | | | [place], [place] | | | | | | [address] | | | | | | [phone] | | | +--------+---------+ + + + [...] me, please do so by calling [phone] and asking for my clinical data assistant Cierra Alexis. I always do my [...] questions or issues. Carlos Arreola MD. [facility] Of Gastroenterology/Hepatology [address] [facility] [address] [place] [address] documented in this encounter Progress Anup Plascencia - 03/10/2006 2:52 PM PDTI saw and examined the patient and discussed the ca se with Dr. Arreola. I agree with the resident's findings and plan as written.Veto lentz signed by Anup Reyes at 03/10/2006 2:52 PM PDTSilCarlos barraza - 03/09/2006 9:32 AM PDT GENERAL GASTROENTEROLOGY [...] heavy use 20 -25yrs ago ('tended barrel washer machine then'). Lost 200lbs psot bypass surgery, has [...] | [facility] | [address] | [place] [address] | | | PATHOLOGY | [address] | | | + + + + + | [facility] | [address] | [place] [address] | | | PATHOLOGY | [address] [...] [facility] DEPARTMENT OF | [address] | [place] [address] | | | PATHOLOGY | [address] | | | + + + + + | [facility] DEPARTMENT OF | [address] | [place] [address] | | | PATHOLOGY | [address] [...] + | [facility] | [facility] | [place] [address] | | | PATHOLOGY | [address] | | | + + + + + | [facility] DEPARTMENT OF | [address] | [place] [address] | | | PATHOLOGY | [address] [...] | [facility] | [address] | [place] [address] | | | PATHOLOGY | [address] | | | + + + + + | [facility] | [address] | [place] [address] | | | PATHOLOGY | [address] [...] pg/mL | | | | | Tk Laboratory. | | | | + + + + + + + + | Specimen | + + | | + + + + + + + | Performing | Address | City/State/Zipcode | Phone Number | | Organization | | | | + + + + + | [facility] | [address] | [place] [address] | | | LABORATORY | | | [...] | | | | | performed at [facility] | | | | | | [facility] [...] + + + | [facility] | [address] | [place] [address] | | | LABORATORY | | | | + + + + + documented in this encounter Visit Diagnoses + + | Diagnosis | + + | Chronic abdominal pain Abdominal pain, unspecified site | + + | Iron deficiency Other disorders of iron metabolism | + + documented in this encounter"
--- OUTSIDE RECORDS SUMMARY | ~2020-02-29 | XMS | Encounter Summary ---
Demographics + + + | Address | [address] | | | [place] [address] | + + + | Home Phone [...] Providers + +------+ + | Care Rag Grader Name | Role | Phone | + +------+ + | Petrona Thapa | PCP | | | MD | | | + +------+ + Reason for Visit + +--------+ + | Reason | Onset | Comments | | | Date | | + +--------+ + | Appointment Question | 09/04/ | | | | 2020 | | + +--------+ + Encounter Details +--------+ + + + + | Date | Type | Department | Care Team | Description | +--------+ + + + + | 09/04/ | Telephone | [facility] | Alanis, | Appointment Question | 2019 | | MEDICINE [address] | MD Petrona | | | | | [place], | [address] | | | | | [place] [address] | [place] [address] | | | | | [phone] | [phone] | | | | | | | [...] Telephone Encounter - Maggie Montoya LPN - 09/06/2019 9:48 AM PDTPatient states feeling be tter, however nurse visit scheduled for 09/15/2019 was cancelled due to Covid-19. Patient advi sed to call back at the end of the month in September to reschedule elephone Encounter - Susanna Boyce - 09/05/2019 4:06 PM PDTPatient would like to speak to the nurse regarding her appt. States she has possi ble allergies or a cold and would like to speak to the nurse. Please advise.Electronically s igned by Susanna Boyce at 09/05/2019 4:09 PM PDTdocumented in this encounter Plan [...] | | | | | [place] [address] | | | | | | [phone] | | | | | | | | +--------+---------+ + + + documented as of this encounter Visit Diagnoses Not on filedocumented in this encounter"
--- OUTSIDE RECORDS SUMMARY | ~2020-02-29 | XMS | Encounter Summary ---
Demographics + + + | Address | [address] | | | [place] [address] | + + + | Home Phone [...] + +------+ + | Care Oil Refinery Operator Name | Role | Phone | + +------+ + | Pedrito Gutierrez MD | PCP | | + +------+ + Reason for Visit + +--------+ + | Reason | Onset | Comments | | | Date | | + +--------+ + | Erroneous Encounter | 12/02/ | | | - Disregard | 2006 | | + +--------+ + Encounter Details +--------+---------+ + + + | Date | Type | Department | Care Team | Description | +--------+---------+ + + + | 10/07/ | Office | Comprehensive Pain | Nathalia Arora | Spondylosis with | | 2006 | Visit | [facility] | [address] [facility] [facility] | Myelopathy, Lumbar | | | | [place] [address] [place], | Region; Neck Pain; | | | | [facility] | [place] [address] | Herniated Lumbar | | | | [facility] and [facility], | | Intervertebral Disc | | | | Building | | L4-5; Fibromyalgia | | | | Floor [place], [place] | | syndrome 729.1; NO | | | | [address] | | DIAGNOSIS RECEIVED | | | | [phone] | | | +--------+---------+ + + + [...] Date: December 02, 2006 Patient: Belinda Meehan, [id number], 1960 I agree with the proposed Physical Therapy Treatment Plan. Provider: DELFINA MOLINA ANP elfina Molina - 007 11:31 AM PDTThis encounter was opened in error. Please disregard this note. athalia Arora - 007 12:26 PM PDT PROGRESS NOTE: Physical Therapy Medicare Progress Note Date: 10/07/2006 Belinda Meehan [id number]. 1960 Start of Care: 06/23/2006 Referring Provider: [...] 09/13/2006 through 10/12/2006 Subjective: Reported back pain /, and underwent MRI of left knee yesterday. Objective: Patient returned for f/u visit regarding back issues. She has had a couple of f alls recently because of her left knee locking and giving out. The MRI revealed and left me dial meniscal tear. Patient continues walking at [employer] on a daily basis, (when she is no t in [place] for appts), 30-40 minutes, and her HEP [...] issue of left knee joint. Treatment began: 0 Treatment ended: 115 Nathalia Arora, Physical Therapist License #[id number] documented in this encoun ter Plan of Treatment + + +--------+ + + | Name | Type | Priori | Associated Diagnoses | Order Schedule | | | | ty | | | + + +--------+ + + | [place] [facility] | Procedures | Routin | Spondylosis [...]
--- OUTSIDE RECORDS SUMMARY | ~2020-02-29 | XMS | Encounter Summary ---
Demographics + + + | Address | [address] | | | [place] [address] | + + + | Home Phone [...] + +------+ + | Care Hot Mill Shearer Name | Role | Phone | + [...] | Neurology | Diagnoses | [place], | [place], | | | | | Migraine | NIHARIKA Jean | Merari Lopez MD | | | | | headache | [address] | | | | | | Procedures | [address] | | | | | | CONSULT TO | [place], [place] | | | | | | NEUROLOGY | [address] | | +--------+--------+ + + + + [...] | (Primary Dx); | | | | [facility] | | Migraine Headache; | | | | [address] | | Opioid Dependence, | | | | [facility] | | Continuous (HCC); | | | | and Healing, | | Neck Pain; Right | | | | | | shoulder rotator | | | | Floor [facility] [place] | | cuff strain; | | | | [address] | | Spondylosis with | | | | [phone] | | Myelopathy, Lumbar | | | [...] orthopedic surgical workup 3. Schedule Neurology evaluation [facility] order placed for Dr. Merari Mittal MD 4. Follow up 11/11/06 documented in this encounter Progress Notes Delfina Molina - 10/23/2006 1:20 PM PDTFormatting of this note might be different from th e original. 10/23/2006 Belinda Meehan is a 46 y.o. female [facility] Comprehensive Pain [...] car. She has not been seeing the [facility] PT , await ing the surgical plan for her left knee. MRI done, ordered by Dr. Ibarra who referred to Dr. Angel Morales for surgical opinion, scheduled for 10/28/06. She continues to see Dr. Alin adames at [facility] and reports benefit and would like to nelly nue she has two more scheduled visits. She reports Dr. Woodson referred her to neurologist locally for her migraine assessment how ever not being scheduled due to insurance [place] barriers. She is interested in being referred to a Dr. Merari WALKER neurlogy whom she has heard works with [...] Collection Time Resulting Agency 10/05/2006 9:20 AM [facility] DEPARTMENT OF RADIOLOGY Component Results MR [...] the free margin and undersurface of the [employer] horn of the medial meniscus suspicious for [...] the left knee 3. Schedule Neurology evaluation [facility] order placed for Dr. Merari Mittal MD 4. Follow up 11/11/06 to reivew pain management 5. Cntinue with PT and psychology as scheduled DELFINA MOLINA [facility] Comprehensive Pain Center Mail code CH 4P [facility] and [address] [address] Valencia Lagunas - 10/23 12:47 PM PDTCMA History: PMH/PSH/SH/FH [...]
--- OUTSIDE RECORDS SUMMARY | ~2020-02-29 | XMS | Encounter Summary ---
Demographics + + + | Address | [address] | | | [place] [address] | + + + | Home Phone [...] Team Providers + +------+ + | Care Bisque Placer Name | Role | Phone | [...] | | | Mailcode: PV240 | [place] [address] | | | | | [facility] | [phone] | | | | | [place], [place] | | | | | | [address] | | | | | | [phone] | | | +--------+ + + + [...]
--- OUTSIDE RECORDS SUMMARY | ~2020-02-29 | XMS | Encounter Summary ---
Demographics + + + | Address | [address] | | | [place] [address] | + + + | Home Phone [...] Team Providers + +------+ + | Care V Belt Skiver Name | Role | Phone | [...] | | Osteoporosis | i, | [address] | | | | | , | [place] | Cece Zhao, | | | | | unspecified | , MD [address] | [place] [address] | | | | | osteoporosis | [address] | Phone: | | | | | type, | [place], | [phone] | | | | | unspecified | [place] | Fax: | | | | | pathological | [address] | [phone] | | | | | fracture | Phone: | | | | | | presence | [phone] | | | | | | Procedures | Fax: | | | | | | [place] | [phone] | | | | | | ZOLEDRONIC | | | | | | | ACID 1MG | | | +--------+ + + + + + Encounter Details +--------+ + + + + | Date | Type | Department | Care Team | Description | +--------+ + + + + | 08/18/ | Hospital | [facility] | Alanis, | Osteopenia, | | 2018 | Encounter | MED CTR OP INFUSION | MD Petrona | unspecified location | | | | [address] | [address] [place] [address] | | | | | [place], [place] | [place] [address] | | | | | [address] | [phone] | | | | | [phone] | | | +--------+ + + + [...] Scr was from her lab draw at [facility]. Marlyn PharmD reports it was 0.81 [...] ZHAO | | | | | | [place] [address] | | | | | | [phone] | | | | | | | [...]
--- OUTSIDE RECORDS SUMMARY | ~2020-02-29 | XMS | Encounter Summary ---
Demographics + + + | Address | [address] | | | [place] [address] [...] Team Providers + +------+ + | Care Chisel Grinder Name | Role | Phone | [...] | | MD [address] | [place] [address] | | | | | | [address] | Phone: | | | | | | [place], | [phone] | | | | | | [place] | Fax: | | | | | | [address] | [phone] | | | | | | Phone: | | | | | | | [phone] | | | | | | | Fax: | | | | | | | [phone] | | +--------+ + + + + + Encounter Details +--------+---------+ + + + | Date | Type | Department | Care Team | Description | +--------+---------+ + + + | 10/18/ | [facility] | [facility] | [place]is, | Obesity (BMI | | 2019 | Visit | GASTROENTEROLOGY | MD [place]rona | 30.0-34.9) (Primary | | | | [address] [place] | [address] [place] | Dx); Nausea; 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[place] [address]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 I recommend referral to a cotton inspector for further assistance with dumping syndrome. I [...] | | | | | [place] [address] | | | | | | [phone] | | | | | | | [...]
--- OUTSIDE RECORDS SUMMARY | ~2020-02-29 | XMS | Encounter Summary ---
Demographics + + + | Address | [address] | | | [place] [address] | + + + | Home Phone [...] Providers + +------+ + | Care Personnel Clerk Name | Role | Phone | [...] Myelopathy, Lumbar | | | | [facility] | | Region; Left Knee | | | | [address] | | Pain; Right Hip | | | | [facility] | | Region Pain; Opioid | | | | and Healing, | | Dependence, | | | | Building | | Continuous ([facility]); | | | | Floor [place], [place] | | Major Depressive | | | | [address] | | Disorder, Recurrent | | | | [phone] | | Episode, Moderate | | | | | | ([facility]); Adjustment | | | | | [...] might be different from th e original. 11/11/2006 Belinda Meehan is a 46 y.o. 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 Fentanyl patch 25mcg/hr Q72hr 3. [place] 10/325 NTE 4 per day 4 [...] weeks or sooner if needed. DELFINA MOLINA [facility] Pain Center Mail code CH 4P [facility] and [facility] [address] [facility] [address] avannah Nolascody - 11/11/2006 9:29 AM PDTCMA History: PMH/PSH/SH/FH [...]
--- OUTSIDE RECORDS SUMMARY | ~2020-02-29 | XMS | Encounter Summary ---
Demographics + + + | Address | [address] | | | [place] [address] | + + + | Home Phone [...] Team Providers + +------+ + | Care Subway Train Operator Name | Role | Phone | [...] Closed | | Neurology | Diagnoses | Kat | [facility] | | | | | Migraine | MD Edy | Chh[address] | | | | | headache | [address] | Mychal Kovacs | | | | | Procedures | [facility] | Metter for | | | | | CONSULT TO | Rd | Health and | | | | | NEUROLOGY | [place], [place] | Healing, | | | | | | [address] | Building [address], | | | | | | Phone: | 8th Floor | | | | | | [phone] | [place], [place] | | | | | | | [address] | | | | | | | Phone: | | | | | | | [phone] | | | | | | | Fax: | | | | | | | [phone] | +--------+--------+ + + + + Reason [...] | | | [facility] | [place], [place] | Weak; | | | | [address] | [address] | Migraine Headache | | | | [address] | [phone] | | | | | [facility] | | | | | | Physician's | | | | | | Pavilion [place], | | | | | | [place] [address] | | | | | | [phone] | | | +--------+---------+ + + + [...] and treatment plan. I agree with toni salmonion by Dr. Stephens. Please see attached notes [...] (ciprofloxacin) Tramadol Morphine IM ( only in [facility]) made gut pain worse 08/27/06: [...] oral route once daily, Disp: , Rfl: kkbfhmmhsc-xopblsonhkslp-qwmmwiun (FIORICET) 50-325-40 mg Oral Tablet, take 2 [...] LE edema Results for BELINDA MEEHAN Molly (ID#[id number]) as of 03/01/2008 9:22:28 PM Ref. Range [...] K/cu mm 220 Results for BELINDA MEEHAN (ID#[id number]) as of 03/01/2008 9:22:28 PM Ref. Range [...] contributing to her hypotension. She nee bernardo zheng a PCP. We will continue to discuss with her options at [facility] with, hopefully, coordin [facility] services. RTC in 3 mos, earlier if problems. Case discussed with Dr. Parish who examined patient and agrees with above. Edy Stephens MD Fellow, Endocrinology and Metabolism documented in this encounte r Miscellaneous Notes Scan - Other, Faculty - 05/09/2008 10:50 AM PST documented in this encounter Plan of Treatment [...] DEPARTMENT OF | [address] | [place] [address] | | | PATHOLOGY | [address] | | | + + + + + | [place] DEPARTMENT | [address] | [place] [address] | | | PATHOLOGY | [address] [...] Performed At | + + + | [id number] Estimated GFR > 60 mL/min/1.73 sq m if non- | [facility] | | [place] [id number] Estimated GFR > 60 mL/min/1.73 sq m if | DEPARTMENT OF | | [place] GFR is estimated using the MDRD equation [...] DEPARTMENT OF | [address] | [place] [address] | | | PATHOLOGY | [address] | | | + + + + + | [facility] DEPARTMENT OF | [address] | [place] [address] | | | PATHOLOGY | [address] [...] Way Lab) | | | [facility] [place] [address] [place] [address] | | | [place] [address] | | + + + + + + + + | Performing | Address | City/State/Zipcode | Phone Number | | Organization | | | | + + + + + | [facility] | [address] | [place] [address] | | | LABORATORY | | | [...] RLB ([address] [facility]) | | | [facility] [address] [place] [facility] | | | [place] [address] | | + + + + + + + + | Performing | Address | City/State/Zipcode | Phone Number | | Organization | | | | + + + + + | [facility] | [address] | [place] [address] | | | LABORATORY | | | [...]
--- OUTSIDE RECORDS SUMMARY | ~2020-02-29 | XMS | Encounter Summary ---
Demographics + + + | Address | [address] | | | [place] [address] | + + + | Home Phone [...] + +------+ + | Care Gauge Maker Apprentice Name | Role | Phone | [...] Medication Refill | | 2018 | | [facility] [address] | MD Petrona | | | | | [place], | [address] [place] | | | | | [place] [address] | [place] [address] | | | | | [phone] | [phone] | | | | | | | [...] | | | | | [place] [address] | | | | | | [phone] | | | | | | | | +--------+---------+ + + + documented as of this encounter Visit Diagnoses Not on filedocumented in this encounter"
--- OUTSIDE RECORDS SUMMARY | ~2020-02-29 | XMS | Encounter Summary ---
Demographics + + + | Address | [address] | | | [place] [address] | + + + | Home Phone [...] Team Providers + +------+ + | Care Bad Credit Collector Name | Role | Phone | [...] + | 09/14/ | Telephone | [facility] | Alanis, | Chest Pain | | 2019 | | MEDICINE [address] | MD Petrona | | | | | [place], | [address] [facility] | | | | | [place] [address] | [place] [address] | | | | | [phone] | [phone] | | | | | | | [...] Notes Telephone Encounter - Teresa Mitchell, Manager Business - 09/15/2019 10:28 AM Nareshe nt presented to the clinic for monthly [...] | | | | | [place] [address] | | | | | | [phone] | | | | | | | | +--------+---------+ + + + documented as of this encounter Visit Diagnoses Not on filedocumented in this encounter"
--- OUTSIDE RECORDS SUMMARY | ~2020-02-29 | XMS | Encounter Summary ---
Demographics + + + | Address | [address] | | | [place] [address] | + + + | Home Phone [...] Providers + +------+ + | Care Assistant Attorney General Name | Role | Phone | [...] + + | 05/01/ | Refill | [facility] INTER[facility] | Alanis, | Medication Refill | | 2017 | | MEDICINE [address] | MD Petrona | | | | | [place], | [address] [facility] | | | | | [place] [address] | [place] [address] | | | | | [phone] | [phone] | | | | | | | [...] | | | | | [place] [address] | | | | | | [phone] | | | | | | | | +--------+---------+ + + + documented as of this encounter Visit Diagnoses Not on filedocumented in this encounter"
--- OUTSIDE RECORDS SUMMARY | ~2020-02-29 | XMS | Encounter Summary ---
Demographics + + + | Address | [address] | | | [place] [address] | + + + | Home Phone [...] Providers + +------+ + | Care Senior Ux Designer Name | Role | Phone | [...] + + | 05/06/ | Telephone | [facility] INTER[facility] | Alanis, | Other | | 2016 | | MEDICINE [address] | MD Petrona | | | | | [place], | [address] [facility] | | | | | [place] [address] | [place] [address] | | | | | [phone] | [phone] | | | | | | | [...] 05/06/2017 8:43 AM PSTContact/Caller: Belinda Contact Number: [phone] Provider/Nurse: Emmy Reason for Call: Pt returning call for nurse believes it was regarding x rays. stated she c ould be reached at [phone]. Last Appointment: 05/04/17 Next Appointment: 06/01/17 documented [...] | | | | | [place] [address] | | | | | | [phone] | | | | | | | | +--------+---------+ + + + documented as of this encounter Visit Diagnoses Not on filedocumented in this encounter"
--- OUTSIDE RECORDS SUMMARY | ~2020-02-29 | XMS | Encounter Summary ---
Demographics + + + | Address | [address] | | | [place] [address] | + + + | Home Phone [...] Team Providers + +------+ + | Care Histology Aide Name | Role | Phone | [...] Post | | | | [facility] | | Bariatric Surgery | | | | and Healing, | | | | | | Building [address] | | | | | | [place], [place] | | | | | | [address] | | | | | | [phone] | | | +--------+------+ + + + [...] Performed At | + + + | [id number] Estimated GFR > 60 mL/min/1.73 sq m if non- | [facility] | | [place]olan [id number] Estimated GFR > 60 mL/min/1.73 sq m if | DEPARTMENT OF | | [place] GFR is estimated using the MDRD equation [...] K | | | COMMENT, prev report: FARHAN HEMO | | + + + + + + + + | Performing | Address | City/State/Zipcode | Phone Number | | Organization | | | | + + + + + | [facility] DEPARTMENT OF | [address] | [place] [address] | | | PATHOLOGY | [address] | | | + + + + + | [facility] DEPARTMENT OF | [address] | [place] [address] | | | PATHOLOGY | [address] [...] | [facility] | [address] [facility] | [place] [address] | | | PATHOLOGY | [address] | | | + + + + + | [facility] | [address] [facility] [facility] | [place] [address] | | | PATHOLOGY | [address] | | | + + + + + documented in this encounter Visit Diagnoses + + | Diagnosis | + + | Chronic abdominal pain Abdominal pain, unspecified site | + + | Status post bariatric surgery Bariatric surgery status | + + documented in this encounter"
--- OUTSIDE RECORDS SUMMARY | ~2020-02-29 | XMS | Encounter Summary ---
[...] Team Providers + +------+ + | Care Guillotine Trimmer Name | Role | Phone | [...] | left great | [place], | [address] | | | | | toe, initial | [place] | Phone: | | | | | encounter | [address] | [phone] | | | | | | Phone: | Fax: | | | | | | [phone] | [phone] | | | | | | Fax: | | | | | | | [phone] | | +--------+ + + + + [...] + + | 11/14/ | Telephone | [facility] | Alanis, | Results, Imaging | | 2019 | | MEDICINE [address] | MD Petrona | | | | | [place], | [address] [place] | | | | | [place] [address] | [place] [address] | | | | | [phone] | [phone] | | | | | | | [...] results. Requesting referral to Dr. Strickland in [place], [place]. Already seeing him for her leg.El [...] | | | | | [place] [address] | | | | | | [phone] | | | | | | | [...]
--- OUTSIDE RECORDS SUMMARY | ~2020-02-29 | XMS | Encounter Summary ---
Demographics + + + | Address | [address] | | | [place] [address] | + + + | Home Phone [...] Providers + +------+ + | Care Panel Wirer Name | Role | Phone | [...]
--- OUTSIDE RECORDS SUMMARY | ~2020-02-29 | XMS | Encounter Summary ---
Demographics + + + | Address | [address] | | | [place] [address] | + + + | Home Phone [...] Team Providers + +------+ + | Care Pantry Cook Name | Role | Phone | [...] Rd | | | | | | [place], [place] | | | | | | [address] | | | +--------+ + + + [...]
--- OUTSIDE RECORDS SUMMARY | ~2020-02-29 | XMS | Encounter Summary ---
Demographics + + + | Address | [address] | | | [place] [address] | + + + | Home Phone [...] Providers + +------+ + | Care Instrumentation Chemist Name | Role | Phone | [...] | | | | | abdominal | [place] | [address] [facility] | | | | | pain | Health & | [facility] | | | | | Procedures | Science | [address] [place], | | | | | REQUEST TO | University | [place] | | | | | SURGERY | [address] | [address] | | | | | AUTOMATIC DRY STARCH OPERATOR | Naeem Mcrae | Phone: | | | | | [place] | Rd | [phone] | | | | | EXPLORATORY | [place], [place] | Fax: | | | | | OF ABDOMEN | [address] | [phone] | | | | | [place] [address] | | | | | | [...] | | | | | | [address] [place], | | | | | | | [place] | | | | | | | [address] | | | | | | | Phone: | | | | | | | [phone] | | | | | | | Fax: | | | | | | | [phone] | +--------+--------+ + + + + Encounter [...] | | [facility] | [place], [place] | | | | | and Healing, | [address] | | | | | Building 1, 6th | [phone] | | | | | Floor [place], [place] | | | | | | [address] | | | | | | [phone] | | | +--------+---------+ + + + [...] the resident s note. CHRIS RUANO MD [facility] [address] [place] [address] And [facility], [address] [place] [address] Chris Peralta - 10:55 AM PDTThe patient [...] not work at this time. Lives in [place], [place] FH: Noncontributory ROS: No recent fevers, [...] | + + + + + | [facility] OF | [address] [place] [address] | [place] [address] | | | PATHOLOGY | [address] | | | + + + + + | [facility] DEPARTMENT OF | [address] | [place] [address] | | | PATHOLOGY | [address] [...] | | | | | Dr. RICARDO FROD | | | | + + + [...]
--- OUTSIDE RECORDS SUMMARY | ~2020-02-29 | XMS | Encounter Summary ---
Demographics + + + | Address | [address] | | | [place] [address] | + + + | Home Phone [...] Providers + +------+ + | Care Hot Box Checker Name | Role | Phone | [...] + | 02/15/ | Telephone | [facility] | Marlyn Rodriguez, | Treatment Order | | 2019 | | MEDICINE [address] | PharmD [address] | | | | | [place], | [address] [place], | | | | | [place] [address] | [place] [address] | | | | | [phone] | [phone] | | | | | | | [...] Reclast infusion for Belinda, please. Referral to [facility] was sent. P DTdocumented in this encounter Plan of Treatment +--------+---------+ + + + | Date | Type | Specialty | Care Team | Description | +--------+---------+ + + + | 05/17/ | Office | Internal Medicine | Alanis, | | | 2019 | Visit | | MD [place] | | | | | | [address] [place] [address] [place] | | | | | | [place] [address] | | | | | | [phone] | | | | | | | | +--------+---------+ + + + documented as of this encounter Visit Diagnoses Not on filedocumented in this encounter"
--- OUTSIDE RECORDS SUMMARY | ~2020-02-29 | XMS | Encounter Summary ---
Demographics + + + | Address | [address] | | | [place] [address] | + + + | Home Phone [...] Team Providers + +------+ + | Care Whitewater Rafting Guide Name | Role | Phone | [...] Required | | paroxysmal | [address] [facility] | HOSPITAL | | | | | positional | [address] | [address] | | | | | vertigo, | [place], | AVE | | | | | left | [place] [address] | [place], [place] | | | | | Vertigo of | Phone: | [address] | | | | | central | [phone] | Phone: | | | | | origin, left | Fax: | [phone] | | | | | | [phone] | Fax: | | | | | | | [phone] | +--------+ + + + + + + + | Scheduling Instructions | + + | Patient is going to be having an Tayler maneuver done and at [facility]. | + + Encounter Details +--------+ + [...] left (Primary Dx); | | | | [place], [place] | [address] | Vertigo [facility] | | | | [address] | | ermias, left | | | | [phone] | | | +--------+ + + + [...] HEALTH | | | | | | [place] [address] | | | | | | [phone] | | | | | | | [...]
--- OUTSIDE RECORDS SUMMARY | ~2020-02-29 | XMS | Encounter Summary ---
Demographics + + + | Address | [address] | | | [place] [address] | + + + | Home Phone [...] Team Providers + +------+ + | Care Blocking Machine Operator Second Name | Role | Phone | [...] | | | | Clinical Nutrition | [place], [place] | | | | | [address] | [address] | | | | | Loop Mailcode: OPC5 | [phone] | | | | | Outpatient Clinic | | | | | | [facility] | | | | | | [place] [address] | | | | | | [phone] | | | +--------+ + + + [...] | | | | | performed by DUSTIN | | | [...] [facility] | [address] | [place], [place] | | | [facility] | | [address] | | + + + + + HEMOGLOBIN A1C (05/31/2002 3:21 PM PST) + + + + + + | Component | Value | Ref Range | Performed | Pathologist | | | | | At | Signature | + + + + + + | HEMOGLOBIN | 6.0Comment: Test | <7.1 % | | | | A1C | performed by Colin | | | [...] + + + | [facility] | [address] | [place] [address] | | | LABORATORY | | | [...] [facility] DEPARTMENT OF | [address] | [place] [address] | | | PATHOLOGY | [address] | | | + + + + + | [facility] DEPARTMENT | [address] | [place] [address] | | | PATHOLOGY | [address] [...] MEDICAL CENTER | [address] | [place] [address] | | | PATHOLOGY | [address] | | | + + + + + | [facility] | [address] | [place] [address] | | | PATHOLOGY | [address] | | | + + + + + documented in this encounter Visit Diagnoses Not on filedocumented in this encounter"
--- OUTSIDE RECORDS SUMMARY | ~2020-02-29 | XMS | Encounter Summary ---
Demographics + + + | Address | [address] | | | [place] [address] | + + + | Home Phone [...] + +------+ + | Care Sales Representative Public Utilities Name | Role | Phone | + [...] | | [facility] | [place], [place] | | | | | [address] | [address] | | | | | [address] | [phone] | | | | | [facility] | | | | | | Physician's | | | | | | [facility] | | | | | | [place] [address] | | | | | | [phone] | | | +--------+--------+ + + + [...]
--- OUTSIDE RECORDS SUMMARY | ~2020-02-29 | XMS | Encounter Summary ---
Demographics + + + | Address | [address] | | | [place] [address] | + + + | Home Phone [...] Providers + +------+ + | Care Tire Duster Name | Role | Phone | + [...] | 02/18/ | Refill | [facility] | Alanis, | Results, Imaging | | 2017 | | MEDICINE [address] | MD [place] | | | | | [place], | [address] | | | | | [place] [address] | [place] [address] | | | | | [phone] | [phone] | | | | | | | [...] as needed Quantity Remainin Pharmacy: Angelina Figueroa Call/Mail/Weatherization Crew Leader/Fax: fax Date of Last Refill: 09/22/17 Date [...] | | | | | [place] [address] | | | | | | [phone] | | | | | | | | +--------+---------+ + + + documented as of this encounter Visit Diagnoses Not on filedocumented in this encounter
--- OUTSIDE RECORDS SUMMARY | ~2020-02-29 | XMS | Encounter Summary ---
Demographics + + + | Address | [address] | | | [place] [address] | + + + | Home Phone [...] Providers + +------+ + | Care Grease Machine Worker Name | Role | Phone | + +------+ + | Petrona Thapa | PCP | | | MD | | | + +------+ + Encounter Details +--------+ + + + + | Date | Type | Department | Care Team | Description | +--------+ + + + + | 07/09/ | Abstract | [facility] | Alanis, | | | 2018 | | MEDICINE [address] | MD [place] | | | | | [place], | [address] [facility] | | | | | [place] [address] | [place] [address] | | | | | [phone] | [phone] | | | | | | | [...] | | | | | [place] [address] | | | | | | [phone] | | | | | | | [...]
--- OUTSIDE RECORDS SUMMARY | ~2020-02-29 | XMS | Encounter Summary ---
[...] Providers + +------+ + | Care Rubber Molder Name | Role | Phone | [...] as of this encounter Progress Notes Interface, Coil Former In - 01/12/2005 6:20 AM PDT [id number] [facility] Date: 11/18/2004 Clinic: General [...] patient to send pictures to our financial consultant and project scheduler for evaluation for medicare for panniculectomy. [...] seek authorization for panniculectomy. Melisa Thorne / [id number] / [id number] / [id number] / [id number] cc: Joanna Arshad M.D. JONATHAN HITZMAN, MD [facility] [address] [facility] [address] Electronically signed by Kenisha Melton 11-26-2004 05:00:55 PM documented i n this encounter Plan of Treatment Not on filedocumented as of this encounter Visit Diagnoses Not on filedocumented in this encounter"
--- OUTSIDE RECORDS SUMMARY | ~2020-02-29 | XMS | Encounter Summary ---
Demographics + + + | Address | [address] | | | [place] [address] | + + + | Home Phone [...] Providers + +------+ + | Care Fish Bin Tender Name | Role | Phone [...] | | | | | | | [place], [place] | | | | | | | [address] | | | | | | | Phone: | | | | | | | [phone] | | | | | | | Fax: | | | | | | | [phone] | +--------+--------+ + + + + Encounter Details +--------+---------+ + + + | Date | Type | Department | Care Team | Description | +--------+---------+ + + + | 01/05/ | Office | [facility] | Eliezer Ruano, | Follow-Up | | 2007 | Visit | Center [address] | [address] [facility] | Examination | | | | Avjennifer Mailcode: CH4S | [address] | Following Surgery | | | | [facility] | [place], [place] | (Primary Dx) | | | | and Healing, | [address] | | | | | Building | [phone] | | | | | Floor [place], [place] | | | | | | [address] | | | | | | [phone] | | | +--------+---------+ + + + [...] care. ELIEZER RUANO MD [facility] [address] [place] [address] And [facility], [address] [place] [address] ejas Crawley - 01/05 1:54 [...]
--- OUTSIDE RECORDS SUMMARY | ~2020-02-29 | XMS | Encounter Summary ---
Demographics + + + | Address | [address] | | | [place] [address] [...] Team Providers + +------+ + | Care Cyanide Case Hardener Name | Role | Phone | + +------+ + PCP | Unavailable | + +------+ + Encounter Details +--------+ + + + + | Date | Type | Department | Care Team | Description | +--------+ + + + + | 07/04/ | Office | Endocrinology, | Beto Meeks MD | | | 2005 | Visit-ECX | Diabetes and | [address] | | | | | Clinical Nutrition | [place], [place] | | | | | [address] | [address] | | | | | Loop Mailcode: OPC5 | [phone] | | | | | Outpatient Clinic | | | | | | [facility] | | | | | | [place] [address] | | | | | | [phone] | | | +--------+ + + + [...]
--- OUTSIDE RECORDS SUMMARY | ~2020-02-29 | XMS | Encounter Summary ---
Demographics + + + | Address | [address] | | | [place] [address] | + + + | Home Phone [...] Providers + +------+ + | Care Carding Machine Operator Name | Role | Phone [...] + + | 07/30/ | Office | 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 07/30/2006 Belinda Meehan is a 46 [address] [facility] Comprehensive Pain [...] these have helped improve function but not jail, and she reports sleeping poorly due to pain disru ption since prior visit. Since prior visit she had a 06/24/06: Bone density study and her T-Score -1.2 lumbar spine a nd -2.2 proximal femur. Collection Information Collection Date Collection Time Resulting Agency 03/10/2006 2:[address] [facility] DEPARTMENT OF PATHOLOGY Component Results Component Value Range Status CALCIUM (LAB) 9.5 8.5 - 10.5 mg/dL Fin SPINE LUMBAR 2 VIEWS AT 1421 HOURS LUMBAR SPINE, 10/01/05 HISTORY: Back pain. FINDINGS: AP and lateral views of the lumbar spine show five tsg-kpw-ksaokez lumbar vertebrae in normal alignment with no [...] spent in reviewing of chart, imaging and activities counselor ing/coordindation of care. 1. For the [...] appropriate care and safety for your patient, [facility] r equires a primary care [...] Please indicate and fax your response to [phone]. I called and left a message on [facility] general voice mail requesting he call me to discuss prescribing and patient care. DELFINA MOLINA [facility] Mail code CH 4P [facility] and [address] [address] asha Nolasco - 07/30/2006 7:35 AM PSTCMA History: PMH/PSH/SH/ review 1. Has [...] | | | | CERVICAL, 3 | SAJI GRAY: | | | | | VIEWS | [...] + + | Performing | Address | City/State[facility] | Phone Number | | Organization | | | | + +---------+ + + | [facility] DEPARTMENT OF | | | [...]
--- OUTSIDE RECORDS SUMMARY | ~2020-02-29 | XMS | Encounter Summary ---
Demographics + + + | Address | [address] | | | [place] [address] | + + + | Home Phone [...] Providers + +------+ + | Care Binding Cutter Synthetic Cloth Name | Role | Phone | + [...] | | Essential | | | | [place], [place] | | hypertension 401.9; | | | | [address] | | Type II or | | | | [phone] | | unspecified type | | | [...] [facility] | [address] | [place] [address] | | | SERVICES, CORE | PARK [...] + | [facility] | [address] | [place] [address] | | | SERVICES, TALYA | [place] [...] | | If you are | | [place] | | | | screening for diabetes: [...] + | [facility] | [address] | [place] [address] | | | [place] | | | | + + + [...] [facility] | [address] | [place] [address] | | | SERVICES, SPECIAL | PARK [...] | + + + + + | [facility] | [address] | [place] [address] | | | SERVICES, CORE | [place] [...] | + + + + + | [facility] | [address] | [place] [address] | | | SERVICES, SPECIAL | PARK [...] by | | | | | | Thename.is,[address] | | | | | | Stephlatia MoralesJORD[facility],[place] | | | | | | [address] | | | | | | [phone].[email or web address]. | | | | | | Get [...] [facility] | [address] | [place], [place] | | | [facility] | | [address] | | + + + + + [...] | + + + + + | [facility] | [address] | [place] [address] | | | SERVICES, SPECIAL | [place]AN [...] | | | 0.5-2.5. uIU/ml | | [facility] | | + + + + + + + + | Specimen | + + | Blood - Blood | + + + + + + + | Performing | Address | City/State/Zipcode | Phone Number | | Organization | | | | + + + + + | [facility] | [address] | [place] [address] | | | [place] | | | | + + + [...]
--- OUTSIDE RECORDS SUMMARY | ~2020-02-29 | XMS | Encounter Summary ---
Demographics + + + | Address | [address] | | | [place] [address] | + + + | Home Phone [...] Providers + +------+ + | Care Community Marketing Coordinator Name | Role | Phone [...] | | | [facility] | [place], [place] | | | | | [address] | [address] | | | | | [address] | [phone] | | | | | Physician's | | | | | | Pavilion, 1st floor | | | | | | [facility] [place] | | | | | | [address] | | | | | | [phone] | | | +--------+ + + + [...] pill medication. Patient stated th at Dr Meeks had her to stop this medication and now her legs are swollen. Please call slick jacobsen at [phone] Thanks documented in this encounte r Plan of Treatment Not on filedocumented as of this encounter Visit Diagnoses Not on filedocumented in this encounter
--- OUTSIDE RECORDS SUMMARY | ~2020-02-29 | XMS | Encounter Summary ---
Demographics + + + | Address | [address] | | | [place] [address] | + + + | Home Phone [...] Providers + +------+ + | Care Rn Transport Name | Role | Phone | + [...] + + | 10/16/ | Telephone | [facility] | Alanis, | Wrist Pain | | 2017 | | MEDICINE [address] | MD [place] | | | | | [place], | [address] [facility] | | | | | [place] [address] | [place] [address] | | | | | [phone] | [phone] | | | | | | | [...] order an xray and send it to [facility] if possible. Please advise. [phone] signed by Malissa Redd at 10/16/2017 8:45 AM PDTdocumented i n this encounter Plan [...] | | | | | [place] [address] | | | | | | [phone] | | | | | | | | +--------+---------+ + + + documented as of this encounter Visit Diagnoses Not on filedocumented in this encounter"
--- OUTSIDE RECORDS SUMMARY | ~2020-02-29 | XMS | Encounter Summary ---
Demographics + + + | Address | [address] | | | [place] [address] | + + + | Home Phone [...] Providers + +------+ + | Care Superintendent General Name | Role | Phone | + +------+ + | Pedrito Gutierrez MD | PCP | | + +------+ + Reason for Visit + +--------+ + | Reason | Onset | Comments | | | Date | | + +--------+ + | Lab Draw | 07/25/ | | | | 2008 | | + +--------+ + Encounter Details +--------+ + + + + | Date | Type | Department | Care Team | Description | +--------+ + + + + | 07/25/ | Telephone | Kraig Turner | Beto Meeks MD | Lab Draw | | 2008 | | Diabetes Health | [address] | | | | | [place] [facility] | [place], [place] | | | | | [address] | [address] | | | | | [address] | [phone] | | | | | Physician's Pavilion | | | | | | Physician's | | | | | | Pavilion [place], | | | | | | [place] [address] | | | | | | [phone] | | | +--------+ + + + [...] Notes Telephone Encounter - Sol Mcdonald - 07/28/2008 2:31 PM PSTPatient called again. She woul d like Dr Meeks or JOHN to call [employer] at [phone] regarding a billing code they are needing. Thanks elephone Encounter - Shabnam Servin - 07/26/2008 9:10 AM PSTPrinted lab orders and mailed to pt.Maida ctronically signed by Shabnam Servin at 07/26/2008 9:10 AM PSTTelephone Encounter - Thu Meeks MD - 07/25/2008 5:33 PM PSTPlease print orders and send to the patientElectronically s igned by Beto Meeks MD at 07/25/2008 5:33 PM PSTTelephone Encounter - Andreina Trivedi - 2:[address] Meeks this afternoon and lab work was ordered to be don e today. Patient would like the lab slip mailed to her so she can do the lab work closer to home. documented in this e ncounter Plan of Treatment Not on filedocumented as of this encounter Visit Diagnoses Not on filedocumented in this encounter"
--- OUTSIDE RECORDS SUMMARY | ~2020-02-29 | XMS | Encounter Summary ---
Demographics + + + | Address | [address] | | | [place] [address] | + + + | Home Phone [...] [address] | | | | | | [place], [place] | | | | | | [address] | | | | | | [phone] | | | +--------+ + + + [...] | | | | | [place] [address] | | | | | | [phone] | | | | | | | | +--------+---------+ + + + documented as of this encounter Visit Diagnoses Not on filedocumented in this encounter"
--- OUTSIDE RECORDS SUMMARY | ~2020-02-29 | XMS | Encounter Summary ---
Demographics + + + | Address | [address] | | | [place] [address] | + + + | Home Phone [...] Providers + +------+ + | Care Field Operations Manager Name | Role | Phone | + +------+ + | Pedrito Gutierrez MD | PCP | | + +------+ + Encounter Details +--------+ + + + + | Date | Type | Department | Care Team | Description | +--------+ + + + + | 03/29/ | Business Account Specialist | Orthopaedics at | Donna Clancy | Neoplasm of | | 2008 | | [facility] [address] | [facility] | Uncertain Behavior | | | | [address] | Gastro [facility] | of Bone and | | | | Mailcode: [id number] | [address] | Articular Cartilage | | | | Physician's [place] | [address] [place], | (Primary Dx) | | | | [place], [place] | [place] [address] | | | | | [address] | [phone] | | | | | [phone] | | | +--------+ + + + [...]
--- OUTSIDE RECORDS SUMMARY | ~2020-02-29 | XMS | Encounter Summary ---
Demographics + + + | Address | [address] | | | [place] [address] | + + + | Home Phone [...] Providers + +------+ + | Care Licensed Loan Officer Name | Role | Phone [...] + + | 09/15/ | Office | [facility] | Emmy-Tajti, | Pain in right lower | | 2019 | Visit | MEDICINE [address] | MD [place] | leg (Primary Dx); | | | | [address] [place], | [address] [facility] | Fall in bathtub, | | | | [place] [address] | [place] [address] | initial encounter; | | | | [phone] | [phone] | Other osteoporosis | | | | [...] Glaucoma Hyperparathyroidism ([facility]) Hypothyroidism IBS (irritable bowel syndrome) Idiopathic scoliosis Leg edema Low back pain Lumbar postlaminectomy syndrome Lumbar radiculopathy primarily right 01/04/2015 Meniere syndrome Migraine with aura Migraines Muscle cramping Muscle spasm Myalgia Nausea Nonalcoholic hepatosteatosis Obesity Opioid dependence ([facility]) Orthostatic hypotension OLIVER (obstructive sleep apnea) [...] Procedure: COLONOSCOPY; Surgeon: Luther Brito MD; Location: [facility] MEDICAL PROCEDURE UNIT DILATION AND CURETTAGE OF UTERUS ELBOW SURGERY FINGER TRIGGER RELEASE 2002 FINGER TRIGGER RELEASE 2010 GASTRIC BYPASS SURGERY 2004 HYSTERECTOMY 05/14/1980 JOINT REPLACEMENT Bilateral 2006 2007 KNEE ARTHROSCOPY 2005 LAPAROSCOPY 01/27/2015 LAPAROTOMY 2008 ROTATOR CUFF REPAIR 2005 SPINE SURGERY TONSILLECTOMY 1964 UPPER GASTROINTESTINAL ENDOSCOPY N/A 12/18/2017 Procedure: EGD; Surgeon: Luther Brito MD; Location: [facility] MEDICAL PROCEDURE UNIT CURRENT MEDICATIONS Current [...] ours as needed for Pain. Incontinence Supplies [facility] As directed 100 [...] (See Comments) Confused and questionable for seizures Qbvfsbesol-Dwwj-Orobjupt Hives and Rash Cephalexin Hives Ciprofloxacin Hives [...] Note: Parts of this documentwere created using viavoo speech recognition software. As a r esult, [...] | | | | | [address] [facility] | | | | | | [place] [address] | | | | | | [phone] | | | | | | | [...]
--- OUTSIDE RECORDS SUMMARY | ~2020-02-29 | XMS | Encounter Summary ---
Demographics + + + | Address | [address] | | | [place] [address] | + + + | Home Phone [...] Team Providers + +------+ + | Care Reproductive Endocrinologist Name | Role | Phone | + [...] + + | 10/13/ | Telephone | [facility] | Alanis, | Appointment Question | 2019 | | MEDICINE [address] | MD [place] | | | | | [place], | [address] | | | | | [place] [address] | [place] [address] | | | | | [phone] | [phone] | | | | | | | [...] back stating is being seen by her electrostatic paint operator today. Please advise. elephone Encounter - [...] | | | [facility] [address] | | | | | | [place] [address] | | | | | | [phone] | | | | | | | | +--------+---------+ + + + documented as of this encounter Visit Diagnoses Not on filedocumented in this encounter"
--- OUTSIDE RECORDS SUMMARY | ~2020-02-29 | XMS | Encounter Summary ---
Demographics + + + | Address | [address] | | | [place] [address] | + + + | Home Phone [...] Providers + +------+ + | Care Supervisor Commissary Production Name | Role | Phone | [...] + + | 08/28/ | Office | [facility] | Delfina Molina, | Neck Pain; Radicular | | 2008 | Visit | Pain Center at | ANP | Pain in Left Arm; | | | | [facility] | | Fibromyalgia; | | | | [address] | | Chronic Bilateral | | | | Center for [facility] | | Shoulder Pain; | | | | and Healing, | | Coccydynia; LBP (Low | | | | | | Back Pain); | | | | Floor [place], [place] | | Adjustment Disorder | | | | [address] | | with Anxiety; Major | | | | [phone] | | Depressive Disorder, | | | [...] Instructions Patient Instructions Delfina Molina ANP - 08/28/2008 3:23 PM PDTContinue with PT and psy chology Get back into the pool routine. Schedule follow up as needed or in 4 months documented in this encounter Progress Notes Delfina Molina ANP - 08/28/2008 3:07 PM PDTFormatting of [...] drawing has be completed, which I reviewed. [facility] Brief Pain Inventory: (ten= worst possible pain [...] day, out for over one wee k . 2. 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 MRI results reviewd with patient DELFINA MOLINA [facility] Mail code CH 4P [facility] and [facility] [address] [facility] [address] Ty Omalley - 08/13 3:00 PM [...] 12 tablets per day. documented in this encounte r Miscellaneous Notes Scan - Edwige, Faculty - 10/16/2008 11:06 AM PDT cryland - Edwige, Faculty - 09/22/2008 4:56 PM PDT Electronica lly signed by Gallo Matthews In at 09/22/2008 4:56 PM PDTdocumented in this encounter Plan [...]
--- OUTSIDE RECORDS SUMMARY | ~2020-02-29 | XMS | Encounter Summary ---
Demographics + + + | Address | [address] | | | [place] [address] | + + + | Home Phone [...] Providers + +------+ + | Care Retort Loader Name | Role | Phone | [...] + + | 04/26/ | Refill | [facility] | Alanis, | Medication Refill | | 2017 | | MEDICINE [address] | MD [place] | | | | | [place], | [address] [facility] | | | | | [place] [address] | [place] [address] | | | | | [phone] | | | | | | | [...] | | | | | [place] [address] | | | | | | [phone] | | | | | | | | +--------+---------+ + + + documented as of this encounter Visit Diagnoses Not on filedocumented in this encounter"
--- OUTSIDE RECORDS SUMMARY | ~2020-02-29 | XMS | Encounter Summary ---
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
--- OUTSIDE RECORDS SUMMARY | ~2020-02-29 | XMS | Encounter Summary ---
Demographics + + + | Address | [address] | | | [place] [address] | + + + | Home Phone [...] Providers + +------+ + | Care Interior Specialist Name | Role | Phone | [...] | | | | [address] [facility]ician's | [place], [place] | | | | | [address] | [address] | | | | | [place], [place] | [phone] | | | | | [address] | | | | | | [phone] | | | +--------+ + + + [...] [facility] DEPARTMENT OF | [address] | [place] [address] | | | PATHOLOGY | [address] | | | + + + + + | [place] DEPARTMENT OF | [address] [facility] | [place] [address] | | | PATHOLOGY | [address] [...] | [facility] DEPARTMENT OF | [address] | [place] [address] | | | PATHOLOGY | [address] | | | + + + + + | [place] DEPARTMENT OF | [address] | [place] [address] | | | PATHOLOGY | [address] | | | + + + + + documented in this encounter Visit Diagnoses Not on filedocumented in this encounter"
--- OUTSIDE RECORDS SUMMARY | ~2020-02-29 | XMS | Encounter Summary ---
Demographics + + + | Address | [address] | | | [place] [address] | + + + | Home Phone [...] Providers + +------+ + | Care Director Transition Name | Role | Phone | + [...] (Primary Dx) | | | | AVE [place], | [address] [facility] | | | | | [place] [address] | [place] [address] | | | | | [phone] | [phone] | | | | | | | [...] | | | | | [place] [address] | | | | | | [phone] | | | | | | | [...]
--- OUTSIDE RECORDS SUMMARY | ~2020-02-29 | XMS | Encounter Summary ---
Demographics + + + | Address | [address] | | | [place] [address] | + + + | Home Phone [...] Providers + +------+ + | Care Primary Care Md Name | Role | Phone | + [...] as of this encounter Procedure Notes Interface, Operations Clerk In - 08/06/2005 2:06 AM PST [id number] GEOVANNI SKELTON J Date: 07/25/2005 Attending Surgeon: Chris Padgett M.D. Geographic Analyst(s): Bandar Langley M.D. Preoperative Diagnosis(es): Abdominal pain. [...] Bandar Langley M.D. Chris Padgett M.D. / [id number] / [id number] / [id number] / [id number] Electronically signed by Chris Padgett 08-05-2005 12:36:41 [...] | Transcriptions | + + | Interface, Operations Clerk In - 08/06/2005 2:06 AM PST | | [id number] | | [id number] GEOVANNI [place] | | | | Date: 07/25/2005 | | | | Attending Surgeon: Chris Padgett M.D. | | | | Geographic Analyst(s): Bandar Langley M.D. | | | | [...] | | DT / HS | | [id number] / [id number] / [id number] / [id number] | | | | | | | | | | | | Electronically signed by Chris Padgett 08-05-2005 12:36:41 PM | + + documented in this encounter Visit Diagnoses Not on filedocumented in this encounter"
--- OUTSIDE RECORDS SUMMARY | ~2020-02-29 | XMS | Encounter Summary ---
Demographics + + + | Address | [address] | | | [place] [address] | + + + | Home Phone [...] Providers + +------+ + | Care Application Developer Name | Role | Phone [...] + + | 08/18/ | Office | [facility] | Alanis, | Preop examination | | 2017 | Visit | MEDICINE [address] | MD [place] | (Primary Dx); | | | | [address] [place] [facility], | [address] [facility] | [place] | | | | [place] [address] | [place] [address] | all digits of left | | | | [phone] | [phone] | hand | | | | | [...] r with Dr. Dr Jefe Cruz in [place], [place]. . She had surgery before and [...] panel yesterday at [facility] in [place] which came back okay. REVIEW OF SYSTEMS [...] Osteopenia Osteoporosis Peripheral neuropathy (HCC) Rheumatoid arthritis ([facility] [...] (See Comments) Confused and questionable for seizures Uewvvelgtf-Ekuq-Splgfblg Cephalexin Hives Duloxetine Migraines and nausea Ketorolac Hives Morphine Swelling Ropinirole Hcl Hives Tramadol Hcl Nausea Only Inhistwyhe-Rfdn-Vxdrntqh Hives and Rash Ciprofloxacin Hives and Rash [...] Note: Parts of this documentwere created using [employer] speech recognition software. As a r esult, [...] | | | | [facility] [address] [facility] | | | | | | [place] [address] | | | | | | [phone] | | | | | | | [...]
--- OUTSIDE RECORDS SUMMARY | ~2020-02-29 | XMS | Encounter Summary ---
Demographics + + + | Address | [address] | | | [place] [address] | + + + | Home Phone [...] Providers + +------+ + | Care Medical Front Desk Coordinator Name | Role | Phone | [...] | | | | [facility] | [place], [place] | | | | | [address] | [address] | | | | | [place], [place] | [phone] | | | | | [address] | | | | | | [phone] | | | +--------+ + + + [...] + + + | [facility] | [address] | [place] [address] | | | LABORATORY | | | [...] [facility] | [address] [facility] | [place] [address] | | | PATHOLOGY | KEAGAN TOLEDO | | | + + + + + | [facility] | [address] [facility] | [place] [address] | | | PATHOLOGY | KEAGAN TOL[place]O | | | + + + + + documented in this encounter Visit Diagnoses Not on filedocumented in this encounter"
--- OUTSIDE RECORDS SUMMARY | ~2020-02-29 | XMS | Encounter Summary ---
Demographics + + + | Address | [address] | | | [place] [address] | + + + | Home Phone [...] Providers + +------+ + | Care Trim Master Operator Name | Role | Phone | [...] bathroom | | | | Ave Mailcode: [facility] | [facility] [address] | since one this | | | | [facility] | [place], [place] | morning with | | | | and Healing, | [address] | IBS/dumping syndrome | | | | Building [address]th | [phone] | symptoms) | | | | Floor [place], [place] | | | | | | [address] | | | | | | [phone] | | | +--------+ + + + [...] better Pt can be reached back at [phone] or if she doesn't answer there, you can reach her on her son's cell, # [phone] Next Appointmet: Next Appointment in [facility] is on 12/30/07 at 1:00 pm [...] (ciprofloxacin) Tramadol Morphine IM ( only in [facility]) made gut pain worse 08/27/06: Trial of oral MSIR caused leg swelling Clarithromycin Hives Mainly in the legs Pharmacy: Pharmacy Preferences: [address] [place] [address] 9AM-9PM MON-FRI / 9AM-7PM SAT / 10AM-6PM SUN Contact information:[phone] (home) documented in this encounter Plan of Treatment Not on filedocumented as of this encounter Visit Diagnoses Not on filedocumented in this encounter"
--- OUTSIDE RECORDS SUMMARY | ~2020-02-29 | XMS | Encounter Summary ---
Demographics + + + | Address | [address] | | | [place] [address] | + + + | Home Phone [...] Team Providers + +------+ + | Care Neuropsychologist Name | Role | Phone | [...] | | | [facility] | [place], [place] | | | | | [address] | [address] | | | | | [address] | [phone] | | | | | Physician's | | | | | | Pavilion, [address] [place] [address] | | | | | | [place], [place] | | | | | | [address] | | | | | | [phone] | | | +--------+ + + + [...]
--- OUTSIDE RECORDS SUMMARY | ~2020-02-29 | XMS | Encounter Summary ---
Demographics + + + | Address | [address] | | | [place] [address] | + + + | Home Phone [...] Providers + +------+ + | Care Data Virtualization Consultant Name | Role | Phone | [...] + + | 03/14/ | Refill | [facility] | Alanis, | Medication Refill | | 2018 | | MEDICINE [address] | MD [place] | | | | | [place], | [address] [facility] | | | | | [place] [address] | [place] [address] | | | | | [phone] | [phone] | | | | | | | [...] | | | | | [place] [address] | | | | | | [phone] | | | | | | | | +--------+---------+ + + + documented as of this encounter Visit Diagnoses Not on filedocumented in this encounter"
--- OUTSIDE RECORDS SUMMARY | ~2020-02-29 | XMS | Encounter Summary ---
Demographics + + + | Address | [address] | | | [place] [address] | + + + | Home Phone [...] + +------+ + | Care Senior Network Systems Engineer Name | Role | Phone [...] + + | 06/25/ | Refill | [facility] | Alanis, | Medication Refill | | 2019 | | MEDICINE [address] | MD [place] | | | | | [place], | [address] [facility] | | | | | [place] [address] | [place] [address] | | | | | [phone] | [phone] | | | | | | | [...] [place] | | | | | | [place] [address] | | | | | | [phone] | | | | | | | | +--------+---------+ + + + documented as of this encounter Visit Diagnoses Not on filedocumented in this encounter"
--- OUTSIDE RECORDS SUMMARY | ~2020-02-29 | XMS | Encounter Summary ---
Demographics + + + | Address | [address] | | | [place] [address] | + + + | Home Phone [...] Team Providers + +------+ + | Care Hardboard Coating Machine Operator Name | Role | [...] with | | 2006 | Visit | [facility] | [address] | Myelopathy, Lumbar | | | | [address] [place], | Region; Neck Pain; | | | | [address] [facility] for | [place] [address] | Herniated Lumbar | | | | Health and Healing, | | Intervertebral Disc | | | | | | L4-5; Fibromyalgia | | | | Floor [place], [place] | | syndrome 729.1 | | | | [address] | | | | | | [phone] | | | +--------+---------+ + + + [...] Date: August 12, 2006 Patient: Belinda Meehan, [id number], 1960 I agree with the proposed Physical Therapy Treatment Plan. Provider: DELFINA MOLINA ANP Nathalia Keyes - 007 12:04 PM PST Physical Therapy Medicare Progress Note Date: 08/12/2006 Belinda Meehan [id number]. 1960 Start of Care: 06/23/2006 Referring Provider: [...] today, feeling nausea, pain lev el head/neck 03/24; lowback /10. Objective: Patient was unable to perform active [...] [place] [facility] | Procedures | Routin | Spondylosis [...] [place] [facility] | Procedures | Routin | Spondylosis [...]
--- OUTSIDE RECORDS SUMMARY | ~2020-02-29 | XMS | Encounter Summary ---
Demographics + + + | Address | [address] | | | [place] [address] | + + + | Home Phone [...] Team Providers + +------+ + | Care Unclaimed Property Manager Name | Role | Phone | + +------+ + | Petrona Thapa | PCP | | | MD | | | + +------+ + Reason for Visit + + + | Reason | Comments | + + + | Pain Management | [facility] pain clinic in [facility], Was switched to Simran Dash | | | Transbuccal every 12 hrs | + + + | Results, Imaging | | + + + Encounter Details +--------+---------+ + + + | Date | Type | Department | Care Team | Description | +--------+---------+ + + + | 06/01/ | Office | [facility] | Aalnis, | Fibromyalgia | | 2017 | Visit | MEDICINE [address] | MD [place] | (Primary Dx); | | | | [address] [place], | [address] [place] | Acquired | | | | [place] [address] | [place] [address] | hypothyroidism; | | | | [phone] | [phone] | Chronic bilateral | | | | [...] with Pain Management Sees pain clinic in [facility], Was switched to Belbuca 150mc Transbuccal every 12 hrs Results, Imaging HPI Belinda Meehan is a 57 y.o. y/o female who presents today for f/u for several issues: Has had a visit w/ the pain in the [place], [place], and they gave her a trial [...] and has been on monthly B12 in [facility] for the last several months. REVIEW OF SYSTEMS See HPI for further details. Review of systems otherwise negative. PAST MEDICAL HISTORY Past Medical History: Diagnosis Date Arthritis Atypical chest pain Benign essential hypertension Blind left eye Cervical radiculopathy Chronic low back pain 01/04/2015 Chronic neck pain 01/04/2015 Chronic pain Chronic venous insufficiency Coccydynia COPD (chronic obstructive pulmonary disease) ([facility]) Depression Diarrhea Dumping syndrome Fatigue fracture of vertebra Fibromyalgia Glaucoma Hyperparathyroidism ([facility]) Hypothyroidism IBS (irritable bowel syndrome) Idiopathic scoliosis Leg edema Lumbar postlaminectomy syndrome Lumbar radiculopathy primarily right 01/04/2015 Meniere syndrome Migraines Muscle cramping Muscle spasm Myalgia Nonalcoholic hepatosteatosis Obesity Opiate dependence ([facility]) Orthostatic hypotension OLIVER (obstructive sleep apnea) Osteoarthritis, generalized Osteopenia Osteoporosis Peripheral neuropathy ([facility]) Rheumatoid arthritis ([facility]) Right arm pain 01/04/2015 RLS (restless legs syndrome) S/P lumbar fusion 01/04/2015 Scoliosis Spondylosis with myelopathy, lumbar region Stroke ([facility]) [...] (See Comments) Confused and questionable for seizures Iwpmuostqr-Hcui-Nceprzjo Cephalexin Hives Ketorolac Hives Morphine Swelling Tramadol Hcl Nausea Only Pkvnqpzfhx-Eihj-Oopkenrj Hives and Rash Ciprofloxacin Hives and Rash [...] Note: Parts of this documentwere created using [employer] speech recognition software. As a r esult, [...] | | | | | [place] [address] | | | | | | [phone] | | | | | | | [...]
--- OUTSIDE RECORDS SUMMARY | ~2020-02-29 | XMS | Encounter Summary ---
Demographics + + + | Address | [address] | | | [place] [address] | + + + | Home Phone [...] + +------+ + | Care Computer Systems Security Analyst Name | Role | Phone [...] | | 2017 | | [facility] [address] | MD [place] | | | | | [place], | [address] [place] | | | | | [place] [address] | [place] [address] | | | | | [phone] | | | | | | | [...] | | | | | [place] [address] | | | | | [phone] | | | | | | | | +--------+---------+ + + + documented as of this encounter Visit Diagnoses + + | Diagnosis | + + | Bronchitis - Primary Bronchitis, not specified as acute or chronic | + + documented in this encounter"
--- OUTSIDE RECORDS SUMMARY | ~2020-02-29 | XMS | Encounter Summary ---
Demographics + + + | Address | [address] | | | [place] [address] | + + + | Home Phone [...] Providers + +------+ + | Care Sleeve Setter Name | Role | Phone | [...] of this encounter Progress Notes Interface, Surgical Tech In - 01/12/2005 8:09 AM PDT [id number] [facility] Date: 10/23/2003 Clinic: Ms. [...] ahead. Chris Padgett M.D. ROSA / HS [id number] / [id number] / [id number] / [id number] documented i n this encounter Plan of Treatment Not on filedocumented as of this encounter Visit Diagnoses Not on filedocumented in this encounter"
--- OUTSIDE RECORDS SUMMARY | ~2020-02-29 | XMS | Encounter Summary ---
Demographics + + + | Address | [address] | | | [place] [address] | + + + | Home Phone [...] Providers + +------+ + | Care Gm Video Name | Role | Phone | + [...] | Diagnoses | Rileyacle, | Fili Pt Osteopathic Medicine Teacher | | | | Therapy | Muscle | NIHARIKA Jean | Ch[address] [address] | | | | | strain Neck | [address] | [address] | | | | | pain | [address] | Mailcode: | | | | | Fibromyalgia | [place], [place] | [facility] | | | | | Radicular | [address] | for Health | | | | | pain in left | | and Healing, | | | | | arm | | Building 1 | | | | | Procedures | | [place], [place] | | | | | PHYSICAL | | [address] | | | | | THERAPY | | Phone: | | | | | REFERRAL | | [phone] | +--------+--------+ + + + + Reason for Visit + + + | Reason | Comments | + + + | LBP - Low back pain | | + + + Encounter Details +--------+---------+ + + + | Date | Type | Department | Care Team | Description | +--------+---------+ + + + | 08/22/ | Office | [facility] | Delfina Lambert, | Muscle Strain hips; | | 2008 | Visit | Pain Center at | ANP | Fibromyalgia; Neck | | | | [facility] | | Pain; Radicular Pain | | | | [address] | | in Left Arm; | | | | Center for [facility] | | Dizziness; Black | | | | and Healing, | | Out; Falling | | | | Building | |Falling | | | | Floor [place], [place] | | | | | | [address] | | | | | | [phone] | | | +--------+---------+ + + + [...] visit Schedule MRI of the neck at [facility] Use your TENS for the muscle [...] drawing has be completed, which I reviewed. [facility] Brief Pain Inventory: (ten= worst possible [...] appointment to see lumbar spine surgery in [place] on . Psychiatric History: depressed mood, sleep [...] 278 01/18 Paniculectomy Hx lumbar fusion 05/2008 L5-U6rrotxz with bone spur removals Family History Problem [...] the MRI results befor planning [facility] care. Belinda was compliant with [...] [facility] Mail code CH 4P [facility] and [address] [address] Ailyn Foster - 03/2009 9:30 [...]
--- OUTSIDE RECORDS SUMMARY | ~2020-02-29 | XMS | Encounter Summary ---
Demographics + + + | Address | [address] | | | [place] [address] | + + + | Home Phone [...] Providers + +------+ + | Care Electronics Technician Apprentice Name | Role | Phone | + +------+ + | Maria Esther Cintron MD | PCP | | + +------+ + Encounter Details +--------+ + + + + | Date | Type | Department | Care Team | Description | +--------+ + + + + | 02/16/ | Telephone | [facility] | Chris Padgett, | | | 2007 | | [place] [address] | [address] [facility] | | | | | Bethanie Mailcode: CH4S | [address] | | | | | Center for [facility] | [place], [place] | | | | | and Healing, | [address] | | | | | Building , 6th | [phone] | | | | | Floor [place], [place] | | | | | | [address] | | | | | | [phone] | | | +--------+ + + + [...] is Pedrito Gutierrez. Please fax orders to [phone]. Thank you . Pain Scale: na Recent Surgery or Procedure: no Pharmacy: Pharmacy Preferences: [address] [place] [address] 9AM-9PM MON-FRI / 9AM-7PM SAT / 10AM-6PM SUN documented in this encoun ter Plan of Treatment Not on filedocumented as of this encounter Visit Diagnoses Not on filedocumented in this encounter"
--- OUTSIDE RECORDS SUMMARY | ~2020-02-29 | XMS | Encounter Summary ---
Demographics + + + | Address | [address] | | | [place] [address] | + + + | Home Phone [...] Providers + +------+ + | Care Plastic Hospital Products Assembler Name | Role | Phone | [...] | | | [facility] | [place], [place] | | | | | [address]ilion [address] | [address] | | | | | [address] | [phone] | | | | | Physician's Pavilion | | | | | | Physician's | | | | | | Pavilion [place], | | | | | | [place] [address] | | | | | | [phone] | | | +--------+ + + + [...] labs done on December 21, please call [phone] signe d by Tiesha Borges at 01/26/2013 2:51 PM PDTTelephone Encounter - Tiesha Borges - 01/06/20 13 2:59 PM PDTPatient requesting call back to [facility] recent lab resultsElectronically sign ed by Tiesha Borges at 01/05/2013 3:00 PM PDTdocumented in this encounter Plan of Treatment Not on filedocumented as of this encounter Visit Diagnoses Not on filedocumented in this encounter"
--- OUTSIDE RECORDS SUMMARY | ~2020-02-29 | XMS | Encounter Summary ---
Demographics + + + | Address | [address] | | | [place] [address] | + + + | Home Phone [...] Providers + +------+ + | Care Chief Medical Physicist Name | Role | Phone | [...] | | | | behavior of | [facility] | Orthopaedics | | | | | bone and | & Fractur | [address] | | | | | articular | [address] | Naeem Mcrae | | | | | cartilage | [address] | Rd | | | | | Procedures | [place], | [place], [place] | | | | | REQUEST TO | [place] [address] | [address] | | | | | SURGERY | Phone: | | | | | | GOLF CART ATTENDANT | [phone] | | | | | | AR BONE | Fax: | | | | | | BIOPSY,OPEN | [phone] | | | | | | DEEP AR | | | | | | | EXCIS/CURET | | | | | | | BENIGN TUMR | | | | | | | CLAV/SCAPULA | | | | | | | AR EXCIS | | | | | | | BENIGN TUMR | | | | | | | CLAV/SCAP,AU | | | | | | | TOGRFT AR | | | | | | | [...] | | | | | | | [facility] | Orthopaedics | | | | | | & Fractur | [address] | | | | | | [address] | Naeem Mcrae | | | | | | Nirav Kovacs | [place] | | | | | | [place], | [place], [place] | | | | | | [place] [address] | [address] | | | | | | Phone: | | | | | | | [phone] | | | | | | | Fax: | | | | | | | [phone] | | +--------+--------+ + + + + [...] | (Primary Dx) | | | | [place], [place] | | | | | | [address] | | | | | | [phone] | | | +--------+---------+ + + + [...] 08/2007 right knee Hx lumbar fusion 05/2008 [id number] with bone spur removals Hx appendectomy Hx cholecystectomy Hx section Hx hysterectomy Gastric bypass Mayra Padgett wt 278 01/18 Paniculectomy Allergies: Allergies Allergen Reactions Keflex (Cephalexin) Sulfa (Sulfonamides) Codeine Penicillins Clindamycin Cipro (Ciprofloxacin) Tramadol Morphine IM ( only in [facility]) made gut pain worse 08/27/06: Trial of oral MSIR caused leg swelling Clarithromycin Hives Mainly in the legs Hagzixw-sjvtagftbh-thu-caff Balance problems Amitriptyline Grand mal seizures Medications: [...] signs are noted as recorded by the Concrete Laborer. General: Alert, awake, and oriented x3. No [...] ablation, I may discuss with her leah valdivia with curettage and bone grafting of his [...] No: | | | | | | [id number] Name: | | | | | | GEOVANNIBELINDA | | | | | | Birthday: 1960 | | | | | | Sex: F | | | | | | Alias:Patient Location: | | | | | | [id number]: Outpatient | | | | | | ActiveOrdering | | | | | | Physician: JOSÉ MIGUEL | | | | | | TIFFANIE,GSCAC SCAPULA | | | | | | COMPLETE completed on | | | | | | 01/01/2009 11:55 | | | | | | AMAccession # | | | | | | [id number]:LEFT | | | | | | SCAPULA [...] NOHELIA, | | | | | | JoannaReviewer: [...]
--- OUTSIDE RECORDS SUMMARY | ~2020-02-29 | XMS | Encounter Summary ---
Demographics + + + | Address | [address] | | | [place] [address] | + + + | Home Phone [...] Team Providers + +------+ + | Care Vmware Administrator Name | Role | Phone | [...] + + | 03/12/ | Refill | [facility] | Alanis, | Medication Refill | | 2018 | | MEDICINE [address] | MD [place] | | | | | [place], | [address] [facility] | | | | | [place] [address] | [place] [address] | | | | | [phone] | [phone] | | | | | | | [...] | | | | | [place] [address] | | | | | | [phone] | | | | | | | | +--------+---------+ + + + documented as of this encounter Visit Diagnoses Not on filedocumented in this encounter"
--- OUTSIDE RECORDS SUMMARY | ~2020-02-29 | XMS | Encounter Summary ---
Demographics + + + | Address | [address] | | | [place] [address] | + + + | Home Phone [...] Team Providers + +------+ + | Care Mingler Operator Name | Role | Phone | [...] | | | | Clinical Nutrition | [place], [place] | | | | | [address] | [address] | | | | | Loop Mailcode: OPC5 | [phone] | | | | | Outpatient Clinic | | | | | | [facility], | | | | | | [place] [address] | | | | | | [phone] | | | +--------+ + + + [...]
--- OUTSIDE RECORDS SUMMARY | ~2020-02-29 | XMS | Encounter Summary ---
Demographics + + + | Address | [address] | | | [place] [address] | + + + | Home Phone [...] + +------+ + | Care Air Export Operations Agent Name | Role | Phone [...] + + | 11/15/ | Office | [facility] | Alanis, | Arthralgia of both | | 2019 | Visit | MEDICINE [address] | MD [place] | hands (Primary Dx); | | | | [address] [place], | [address] [facility] | Acquired | | | | [place] [address] | [place] [address] | hypothyroidism; | | | | [phone] | [phone] | Migraine without | | | | [...] Procedure: COLONOSCOPY; Surgeon: Luther Brito MD; Location: [facility] MEDICAL PROCEDURE UNIT DILATION AND CURETTAGE OF UTERUS ELBOW SURGERY FINGER TRIGGER RELEASE 2003 FINGER TRIGGER RELEASE 2010 GASTRIC BYPASS SURGERY 2004 HYSTERECTOMY 05/14/1980 JOINT REPLACEMENT Bilateral 2007 2008 KNEE ARTHROSCOPY 2005 LAPAROSCOPY 01/27/2015 LAPAROTOMY 2008 ROTATOR CUFF REPAIR 2005 SPINE SURGERY TONSILLECTOMY 1964 UPPER GASTROINTESTINAL ENDOSCOPY N/A 12/18/2017 Procedure: EGD; Surgeon: Luther Brito MD; Location: [facility] MEDICAL PROCEDURE UNIT CURRENT MEDICATIONS [...] (See Comments) Confused and questionable for seizures Uabvtgntfw-Lhwc-Gtkbanpo Hives and Rash Cephalexin Hives Ciprofloxacin Hives [...] Note: Parts of this documentwere created using [employer] speech recognition software. As a r esult, [...] | | | | | [place] [address] | | | | | | [phone] | | | | | | | [...] + | [address] | [address] | [place] | [phone] | | [facility] | | [address] | | | - LABORATORY | | [...] | | | | | with both MT-3 and | | | | | | MPO-ANCA enzyme | | | | | | immunoassays. Jose Franciscoany as | | | | | | [...] + + | Performed at: 01 - [facility] [address], | REFERENCE LAB | | [place] [id number] Heavy Equipment Service Technician: Manish Chin MD, Phone: | [facility] | | [phone] Performed at: 02 - [address] | | | [place], [place] [address] Heavy Equipment Service Technician: Jeannine Mendoza MD, | | | Phone: [phone] | | + + + + + + + + | Performing | Address | City/State/Zipcode | Phone Number | | Organization | | | | + + + + + | REFERENCE LAB | [address] | [place], [place] | [phone] | | [facility] | [facility] | [address] | | + + + + + [...] + | Performed at: 01 - [facility] [place] [address], | REFERENCE LAB | | [place], [place] [id number] Heavy Equipment Service Technician: Bandar Gan MD, Phone: | [facility] | | [phone] | | + + + + + + + + | Performing | Address | City/State/Zipcode | Phone Number | | Organization | | | | + + + + + | REFERENCE LAB | [address] | [place], [place] | [phone] | | [facility] | [place] | [address] | | + + + + + [...] [address] | [place] | [phone] | | [facility] | | [address] | | | - LABORATORY | | [...] + | [address] | [address] | [place] | [phone] | | [facility] | | [address] | | | - LABORATORY | | [...] + | [address] | [address] | [place] | [phone] | | [facility] | | [address] | | | - LABORATORY | | [...] mL/min/1.73m2 | [facility] | | | Marshallese | RATE,ESTIMATED | | MEDICAL | | | | mL/min/1.18h5Tnqj than | | CENTER - | | [...] [address] | [place] | [phone] | | [facility] | | [address] | | | - LABORATORY | | [...]
--- OUTSIDE RECORDS SUMMARY | ~2020-02-29 | XMS | Encounter Summary ---
Demographics + + + | Address | [address] | | | [place] [address] | + + + | Home Phone [...] Providers + +------+ + | Care Concrete Stone Fabricator Name | Role | Phone | [...] + | 03/17/ | Telephone | [facility] | Alanis, | TCM - Hosp FU | | 2017 | | [facility] [address] | MD [place] | | | | | [place], | [address] [facility] | | | | | [place] [address] | [place] [address] | | | | | [phone] | [phone] | | | | | | | [...] 03/23/2018 2:24 PM PDTI have received a DataProm e call from Taniya at Dr. Paiz's office and they are working on getting home health started from nursing evaluation recommendation today. I have attempted follow up call to pt with vo Nimia message. eleph one Encounter - Erica Emerson [...] for Physical Therapy request and a [facility] Health plan. I have provided my phone [...] to report we have received records from [facility] and I have reached out to catalytic case operator Devin to report dressing/ w ound care concerns that he reports working with Shalonda at [facility] and she has had an ev aluation yesterday. She receives 20 hours care support per month and they are also working w [facility] volunteer service to help with patient needs. [...] call center-Patient reports had just discharged from [facility] on Oct. 2 following a Bowel obstr uction surgery and has open wound area (which will require some packing) with efren still intact. She reports not enough help at home to support her current state of weakness and she had contacted the [facility] worker she reports Devin [phone] as her catalytic case operator . She gives permission for release of records to discuss this and reports she will notify [facility] so we can obtain information to assist in follow up care. I have spoke with Thais cortes (nurse) with for coordination of care @[phone] (provided by Patient ). She h as [...] | | | | | [place] [address] | | | | | | [phone] | | | | | | | | +--------+---------+ + + + documented as of this encounter Visit Diagnoses Not on filedocumented in this encounter"
--- OUTSIDE RECORDS SUMMARY | ~2020-02-29 | XMS | Encounter Summary ---
Demographics + + + | Address | [address] | | | [place] [address] | + + + | Home Phone [...] Providers + +------+ + | Care Surgical Instrument Maker Name | Role | Phone | [...] as of this encounter Progress Notes Interface, Roller Print Tender In - 01/03/2006 3:02 AM PDTCLINIC DATE: 11/01/2002 NEUROMUSCULAR CLINIC PRIMARY CARE PROVIDER: Pedrito Gutierrez M.D. OTHER PHYSICIAN: Issac Meeks M.D., [facility] Endocrinology. PROBLEM LIST 1. Fibromyalgia and [...] fatigue. She reportedly has begun walking with Cambria crutches much of the time due to [...] Irving Pete M.D. Neurology/Neuromuscular Fellow TBD / HS [id number] / [id number] / [id number] / [id number] C: 11/10/2002 BRAD cc: Issac Meeks M.D. [facility] Endocrinology Pedrito Gutierrez M.D. [address] [place] [id number] signed by Interface, Roller Print Tender In at 01/03/2006 3:0 2 AM PDTdocumented in this encounter Plan of Treatment Not on filedocumented as of this encounter Visit Diagnoses Not on filedocumented in this encounter
--- OUTSIDE RECORDS SUMMARY | ~2020-02-29 | XMS | Encounter Summary ---
Demographics + + + | Address | [address] | | | [place] [address] | + + + | Home Phone [...] Providers + +------+ + | Care Directory Clerk Name | Role | Phone | [...] [place] | | | | | [place] [address] | [place] [address] | | | | | [phone] | [phone] | | | | | | | [...] | | | | | [place] [address] | | | | | | [phone] | | | | | | | | +--------+---------+ + + + documented as of this encounter Visit Diagnoses Not on filedocumented in this encounter"
--- OUTSIDE RECORDS SUMMARY | ~2020-02-29 | XMS | Encounter Summary ---
Demographics + + + | Address | [address] | | | [place] [address] | + + + | Home Phone [...] Providers + +------+ + | Care Veneer Taping Machine Operator Name | Role | Phone [...] as of this encounter Progress Notes Interface, Miter Grinder Operator In - 01/11/2005 8:56 PM PDTClinic [...] bypass surgery and will be admitted to [facility] for this procedure on November 22, 2003. [...] Ester Romero M.D. Issac Meeks M.D. / [id number] / [id number] / [id number] / [id number] Tdocumented in this encounter Plan of Treatment Not on filedocumented as of this encounter Visit Diagnoses Not on filedocumented in this encounter"
--- OUTSIDE RECORDS SUMMARY | ~2020-02-29 | XMS | Encounter Summary ---
Demographics + + + | Address | [address] | | | [place] [address] | + + + | Home Phone [...] Providers + +------+ + | Care Body Piercer Name | Role | Phone | + [...] + | 01/31/ | Telephone | [facility] | Alanis, | Foot Pain | | 2018 | | MEDICINE [address] | MD Petrona | | | | | [place], | [address] [facility] | | | | | [place] [address] | [place] [address] | | | | | [phone] | [phone] | | | | | | | [...] | | | | | [place] [address] | | | | | | [phone] | | | | | | | | +--------+---------+ + + + documented as of this encounter Visit Diagnoses Not on filedocumented in this encounter"
--- OUTSIDE RECORDS SUMMARY | ~2020-02-29 | XMS | Encounter Summary ---
Demographics + + + | Address | [address] | | | [place] [address] | + + + | Home Phone [...] Providers + +------+ + | Care Print Color Matcher Name | Role | Phone | [...] 2006 | Visit | Rheumatology 3245 | WIRER MAINTENANCE | (Primary Dx); | | | | TRACE Sharmila Schilling | | Fibromyalgia; | | | | Mailcode: OPC5 | | Fibromyalgia | | | | Outpatient Clinic | | | | | | Building [place], | | | | | | [place] [address] | | | | | | [phone] | | | +--------+---------+ + + + [...] discomfort- entire abd around to back. Seeing [facility] pain clinic. Fentanyl patch helped pain a [...] it may help. documented in this encount Plan of Treatment [...]
--- OUTSIDE RECORDS SUMMARY | ~2020-02-29 | XMS | Encounter Summary ---
Demographics + + + | Address | [address] | | | [place] [address] | + + + | Home Phone [...] Providers + +------+ + | Care Tobacco Blender Name | Role | Phone | [...] | | 2006 | | Faculty at [employer] | MD Darrion,PhD [address] | | | | | for Health and | Jayce Mcrae | | | | | Healing [address] | [place], [place] | | | | | [facility] | [address] | | | | | Health and Healing, | [phone] | | | | | [facility] | | | | | | Floor [place], [place] | | | | | | [address] | | | | | | [phone] | | | +--------+ + + + [...] her questions and get a timely response. [email or web address] Tiesha Amor PA-C elephone Encounter - Katie Coley - 08/31/2006 3:58 PM PDTPlease call-- last seen by 08-26-06 pt . would like to discuss non-surgical options -a lot of unanswered questions Pt's phone:[phone] signed by Katie Coley at 08/31/2006 3:58 PM PDTdoc umented in this encounter Plan of Treatment Not on filedocumented as of this encounter Visit Diagnoses Not on filedocumented in this encounter"
--- OUTSIDE RECORDS SUMMARY | ~2020-02-29 | XMS | Encounter Summary ---
[...] Providers + +------+ + | Care Veterinary X Ray Operator Name | Role | Phone | [...]
--- OUTSIDE RECORDS SUMMARY | ~2020-02-29 | XMS | Encounter Summary ---
Demographics + + + | Address | [address] | | | [place] [address] | + + + | Home Phone [...] Providers + +------+ + | Care Sewing Machine Assembler Name | Role | Phone | [...] + | 02/25/ | Telephone | [facility] | Alanis, | Pain | | 2019 | | MEDICINE [address] | MD [place] | | | | | [place], | [address] | | | | | [place] [address] | [place] [address] | | | | | [phone] | [phone] | | | | | | | [...] AM Yeni SHEEHAN patient needs to s [facility] attention for evaluation for back pain [...] | | | | | [place] [address] | | | | | | [phone] | | | | | | | | +--------+---------+ + + + documented as of this encounter Visit Diagnoses Not on filedocumented in this encounter"
--- OUTSIDE RECORDS SUMMARY | ~2020-02-29 | XMS | Encounter Summary ---
Demographics + + + | Address | [address] | | | [place] [address] | + + + | Home Phone [...] Team Providers + +------+ + | Care Varitypist Name | Role | Phone | + [...] | | | | | Encounter | [place] | | | | | for | [address] | [address] | | | | | long-term | | Phone: | | | | | (current) | | [phone] | | | | | use of other | | Fax: | | | | | medications | | [phone] | | | | | LBP (low [...] | Diagnoses | Paco, | Fili Pt Community Outreach Coordinator | | | | Therapy | Myalgia and | Rosi T, ANP | [address] [address] | | | | | myositis, | [address] | | | | | unspecified | [address] | Mailcode: | | | | | LBP (low | [place], [place] | [facility] | | | | | back pain) | [address] | for Health | | | | | Chronic | | and Healing, | | | | | shoulder | | Building 1 | | | | | pain Muscle | | [place], [place] | | | | | strain | | [address] | | | | | Radicular | | Phone: | | | | | pain in left | | [phone] | | | | | arm Neck [...] | | pain | [place], [place] | [place], [place] | | | | | | [address] | [address] | | | | | | Phone: | | | | | | | [phone] | | | | | | | Fax: | | | | | | | [phone] | | +--------+--------+ + + + + Encounter Details +--------+---------+ + + + | Date | Type | Department | Care Team | Description | +--------+---------+ + + + | 04/05/ | Office | [facility] | Rosi Antonio, | LBP (low back pain) | | 2012 | Visit | Pain Center at | ANP | (Primary Dx); | | | | [facility] | | Fibromyalgia | | | | [address] | | syndrome 729.1; | | | | Center for Health | | Encounter for | | | | and Healing, | | Long-Term (Current) | | | | Building | | Use of Opioids; | | | | Floor [place], [place] | | Chronic Bilateral | | | | [address] | | Shoulder Pain; | | | | [phone] | | Muscle Strain hips; | | [...] you have questions or concerns. NIHARIKA BERRIOS [facility] [address] [facility] Mail Code: [place] [address] documented in this encounter Progress Notes Rosi Antonio ANP - 04/05/2013 9:28 AM PDTFormatting of this note might be different fro m the original. [facility] Office Visit 04/05/2013 Belinda Meehan; ; : 1960 Ms. Meehan was referred for pain management consultation by Taqueria Raman NP [address] [place] [address] Chief Complaint Patient presents with New patient [...] steroid injections by Dr. Lit Cintron in [place] at the [facility] and had good [...] included: Epidural steroid injections she received in [place] and helped for a short time IT AUDIT MANAGER Brief Pain Inventory: (ten= worst possible [...] right knee Lumbar fusion 05/2008 & 2011 [id number] with bone spur removals Appendectomy Cholecystectomy section [...] Hives Mainly in the legs Clindamycin Codeine Brtkpef-Rfznxzbtgz-Cbg-Caff Balance problems Fioricet W/Codeine (Lmtgprxcoa-Zirjpfhtvt-Sto-Cod) Keflex (Cephalexin) Morphine IM ( only in [...] before her lumbar surgeries and recently in [place]. She has short-term relief from the se [...] of which more than 50% was spent enmtp-md-hmrz in revie wing pain questionnaire, medical record, consultation, discussion, addressing questions and counselling/education. NIHARIKA BERRIOS [facility] [address] [place] [address] Mail Code: [address] [address] Maris Costa MA - 04/05/2013 [...]
--- OUTSIDE RECORDS SUMMARY | ~2020-02-29 | XMS | Encounter Summary ---
Demographics + + + | Address | [address] | | | [place] [address] | + + + | Home Phone [...] + +------+ + | Care Labor Relations Analyst Name | Role | Phone | [...] | Epigastric | T, ANP | [address] | | | | | pain Status | [place], [place] | [address] | | | | | post | [address] | [place] | | | | | bariatric | | [place], 4th | | | | | surgery | | floor | | | | | Procedures | | [place], [place] | | | | | CONSULT TO | | [address] | | | | | GI PROCEDURE | | Phone: | | | | | UNIT: EGD | | [phone] | | | | | | | Fax: | | | | | | | [phone] | +--------+--------+ + + + + Reason [...] | | | | | | Rd [place], | | | | | | | [place] | | | | | | | [address] | | | | | | | Phone: | | | | | | | [phone] | | | | | | | Fax: | | | | | | | [phone] | +--------+--------+ + + + + Encounter Details +--------+---------+ + + + | Date | Type | Department | Care Team | Description | +--------+---------+ + + + | 08/28/ | Office | Dig[facility]ive Health | Chris Padgett, | Epigastric Pain | | 2008 | Visit | [place] [address] | [address] | (Primary Dx); Status | | | | Ave Mailcode: CH4S | [address] | Post Bariatric | | | | Center for [facility] | [place], [place] | Surgery | | | | and Healing, | [address] | | | | | | [phone] | | | | | [place], [place] | | | | | | [address] | | | | | | [phone] | | | +--------+---------+ + + + [...] + + +--------+ + + | [place] UPPER GI | Procedures | Routin | [...] Performed At | + + + | [id number] Estimated GFR > 60 mL/min/1.73 sq m if non- | [facility] | | [place] [id number] Estimated GFR > 60 mL/min/1.73 sq m if | DEPARTMENT OF | | [place] GFR is estimated using the MDRD [...] | [facility] | [address] [facility] | [place] [address] | | | PATHOLOGY | [address] | | | + + + + + | [facility] | [address] [facility] | [place] [address] | | | PATHOLOGY | [address] | | | + + + + + documented in this encounter Visit Diagnoses + + | Diagnosis | + + | Epigastric pain - Primary Abdominal pain, epigastric | + + | Status post bariatric surgery Bariatric surgery status | + + documented in this encounter"
--- OUTSIDE RECORDS SUMMARY | ~2020-02-29 | XMS | Encounter Summary ---
Demographics + + + | Address | [address] | | | [place] [address] | + + + | Home Phone [...] Providers + +------+ + | Care Truck Trailer Final Inspector Name | Role | Phone | [...] + + | 03/25/ | Refill | [facility] | Alanis, | Medication Refill | | 2016 | | MEDICINE [address] | MD [place]ron[place] | | | | | [place], | [address] [facility] | | | | | [place] [address] | [place] [address] | | | | | [phone] | [phone] | | | | | | | [...] | | | | | [place] [address] | | | | | | [phone] | | | | | | | | +--------+---------+ + + + documented as of this encounter Visit Diagnoses Not on filedocumented in this encounter"
--- OUTSIDE RECORDS SUMMARY | ~2020-02-29 | XMS | Encounter Summary ---
Demographics + + + | Address | [address] | | | [place] [address] | + + + | Home Phone [...] Providers + +------+ + | Care Separator Inserter Name | Role | Phone | [...] + | 10/05/ | Telephone | [facility] | Alanis, | Injections | | 2019 | | MEDICINE [address] | MD [place]ron[place] | | | | | [place], | [address] [facility] | | | | | [place] [address] | [place] [address] | | | | | [phone] | [phone] | | | | | | | [...] Petrona | | | | | | [address] [place] [address] [place] | | | | | | [place] [address] | | | | | | [phone] | | | | | | | | +--------+---------+ + + + documented as of this encounter Visit Diagnoses Not on filedocumented in this encounter"
--- OUTSIDE RECORDS SUMMARY | ~2020-02-29 | XMS | Encounter Summary ---
Demographics + + + | Address | [address] | | | [place] [address] | + + + | Home Phone [...] Providers + +------+ + | Care Rn Cardiac Name | Role | Phone | [...] + + | 03/27/ | Telephone | [facility] | Alanis, | Hip Pain | | 2016 | | MEDICINE [address] | MD John | | | | | [place], | [address] [facility] | | | | | [place] [address] | [place] [address] | | | | | [phone] | [phone] | | | | | | | [...] Orders ddrobertou m Note - Yue Mitchell Plaster Block Layer - 04/03/2017 3:04 PM PDT Addended by: YUE FELDMAN on: 04/03/2017 15:04 Modules accepted: Orders Telephone Encounter - Yue Mitchell Medical Assistant - 04/03/2017 2:57 PM PDTSpoke to patient and she is not doing better, She continues to have pain in her left hip and woeleanor d like to have an x-ray order sent to [facility] in [place]. Order cued up.Electronica lly signed by Destiney [...] Zpack has cleared it up [facility] in [place] is Pharmacy Had fall 4 months ago and used her life alert button but no one came. She had a big bruise at the time and continues to have pain in left hip Tender to touch and can't even lay on that side with out increased discomfort. [facility] [place] Please to advise elephone Encounter - Tuan Snider - 03/27/2017 2:22 PM PDTContact/Caller: Belinda Contact Number: [phone] Provider/Nurse: Emmy Reason for Call: Pt calling in stated they believe they are getting an infection on left ea r lobe. Wondering if they could get prescription for that. Pt also calling in would like an x-ray to be ordered for left hip over in [place]. Please advise. Last Appointment: 02/23/17 Next Appointment: [...] [place] | | | | | | [place] [address] | | | | | | [phone] | | | | | | | [...]
--- OUTSIDE RECORDS SUMMARY | ~2020-02-29 | XMS | Encounter Summary ---
Demographics + + + | Address | [address] | | | [place] [address] | + + + | Home Phone [...] Team Providers + +------+ + | Care Examiner Of Currency Name | Role | Phone | + +------+ + | Sulaiman Carrera MD | PCP | | + +------+ + Encounter Details +--------+ + + + + | Date | Type | Department | Care Team | Description | +--------+ + + + + | 08/09/ | Hospital | Diagnostic Imaging | | | | 2013 | Encounter | Services at [facility] | | | | | | [address] | | | | | | Clementina Winkler RIWANG | | | | | | [facility], [address] [place] [address] | | | | | | [place], [place] | | | | | | [address] | | | | | | [phone] | | | +--------+ + + + [...] | | 0 | | | | (TRAVATAFaiza Ruiz) 0.004 % | the evening. | | [...]
--- OUTSIDE RECORDS SUMMARY | ~2020-02-29 | XMS | Encounter Summary ---
Demographics + + + | Address | [address] | | | [place] [address] | + + + | Home Phone [...] [id number] | | | | | | [place], [place] | | | | | | [address] | | | | | | [phone] | | | +--------+ + + + [...] [facility] Committee. elephone Encounter - Tasha Em - [...]
--- OUTSIDE RECORDS SUMMARY | ~2020-02-29 | XMS | Encounter Summary ---
Demographics + + + | Address | [address] | | | [place] [address] [...] Providers + +------+ + | Care Balance Wheel Motion Inspector Name | Role | Phone | [...] + + | 08/04/ | Refill | [facility] | Alanis, | Medication Refill | | 2017 | | MEDICINE [address] | MD [place] | | | | | [place], | [address] [facility] | | | | | [place] [address] | [place] [address] | | | | | [phone] | [phone] | | | | | | | [...] | | | | | [place] [address] | | | | | | [phone] | | | | | | | | +--------+---------+ + + + documented as of this encounter Visit Diagnoses Not on filedocumented in this encounter"
--- OUTSIDE RECORDS SUMMARY | ~2020-02-29 | XMS | Encounter Summary ---
Demographics + + + | Address | [address] | | | [place] [address] | + + + | Home Phone [...] Providers + +------+ + | Care Regional Recruiter Name | Role | Phone | [...] as of this encounter Procedure Notes Interface, Home Care And Home Health Aides Teacher In - 06/05/2005 5:20 AM PSTDate: Attending Surgeon: Chris Padgett M.D. Decal Transferrer(s): Ramon Valentine M.D. Preoperative Diagnosis: Morbid obesity. [...] proximal transected portion down and did a llel-uk-axok stapled jejunojejunostomy using a single firing blue [...] this antecolic and antegastric and performed a nmni-qu-cyln gastrojejunostomy after placing a posterior interrupted row [...] M.D. Chris Padgett M.D. MOOKIE / SHARIF [id number] / [id number] / [id number] / [id number] Tdocumented in this encounter Plan of Treatment [...] | Transcriptions | + + | Interface, Home Care And Home Health Aides Teacher In - 06/05/2005 5:20 AM PST Date: | | 11/22/2003Attending Surgeon: Chris Padgett M.D.Decal Transferrer(s): | | Ramon Valentine M.D.Preoperative Diagnosis:Morbid obesity.Postoperative [...] our proximal transected portion down and did sdjlv-vk-eohh stapled jejunojejunostomy | | using a single [...] to this antecolic and antegastric andperformed a pnma-tx-wgue gastrojejunostomy | | after placing a posteriorinterrupted [...] from anesthesia and transportedwithout complications to the PACU.Ramno Valentine | | Syed Padgett M.D.MOOKIE / [id number] / [id number] / [id number] / [id number]: 11/22/2003T: | | 11/22/2003 | |cm to [...] transected portion down and did a | |rftg-sy-pamz stapled jejunojejunostomy using a single firing blue [...] antecolic and antegastric and | |performed a fhxk-bh-yzvn gastrojejunostomy after placing a posterior | |interrupted [...] | | | |MOOKIE / HS | |[id number] / [id number] / [id number] / [id number] | | | | | + + documented in this encounter Visit Diagnoses Not on filedocumented in this encounter"
--- OUTSIDE RECORDS SUMMARY | ~2020-02-29 | XMS | Encounter Summary ---
Demographics + + + | Address | [address] | | | [place] [address] | + + + | Home Phone [...] | Organization | [facility] | | | and [...] Providers + +------+ + | Care Student Services Vice President Name | Role | Phone [...] | | | | [place], | [address] Phone: | | | | | | [place] | [phone] | | | | | | [address] | Fax: | | | | | | Phone: | [phone] | | | | | | [phone] | | | | | | | Fax: | | | | | | | [phone] | | +--------+ + + + + [...] [address] [place], | [address] [facility] | (Primary Dx) | | | | [place] [address] | [place] [address] | | | | | [phone] | [phone] | | | | | | | [...] | | | | | [place] [address] | | | | | | [phone] | | | | | | | [...]
--- OUTSIDE RECORDS SUMMARY | ~2020-02-29 | XMS | Encounter Summary ---
Demographics + + + | Address | [address] | | | [place] [address] | + + + | Home Phone [...] + +------+ + | Care Marine Engine Machinist Apprentice Name | Role | Phone | [...] | | | Metabolism | bypass | [address] | [address] | | | | | Hypovitamino | [address], | Ave | | | | | sis D [address] | [address] | [place], [place] | | | | | nutritional | [place], [place] | [address] | | | | | deficiency | [address] | Phone: | | | | | Other | Phone: | [phone] | | | | | protein-jose manuel | [phone] | Fax: | | | | | nick | Fax: | [phone] | | | | | malnutrition | [phone] | | | | | | Weight | | | | | | | gain | | | | | | | Procedures | | | | | | | CONSULT TO | | | | | | | ENDO | | | | | | | [address] | | | +--------+--------+ + + + [...] [facility] | [place], [place] | (Primary Dx); | | | | [address] | [address] | Metabolic syndrome X | | | | [address] | [phone] | 250.80; Essential | | | | Physician's Pavilion | | hypertension 401.9; | | | | Physician's | | Unstable balance | | | | Pavilion [place], | | | | | | [place] [address] | | | | | | [phone] | | | +--------+---------+ + + + [...] Hives Mainly in the legs Clindamycin Codeine Mxvuqlx-Mbsbwrohpu-Oye-Caff Balance problems Fioricet W/Codeine (Txzfixubvp-Rbottnedqg-Pdc-Cod) Keflex (Cephalexin) Morphine IM ( only in [facility]) made gut pain worse 08/27/06: Trial [...] U/L 41 ANION GAP 8 VITAMIN B12, [id number] pg/ml >2000 (H) HEMOGLOBIN A1C <=5.6 % [...] SERUM 15.0-85.0 pg/ml 222.9 (H) VITAMIN B12, VZSPS040-117 pg/ml > 2000 HEMOGLOBIN A1C <=5.6 % [...] home vi a a long drive to [place]. She needs further evaluation of her right hip and BEAUTY CULTURIST APPRENTICE. This c an be most easily accomplished [...] | + +--------+ + + + | NC COLLECTION | Routin | 08/09/2013 | IGT [...] VERONICA | [address] | [place], [place] | | | [facility] | [address] | [address] | | | TESTS | | | [...] MARQUAM | [address] | [place], [place] | | | [facility] [facility] JESSIE | [address] | [address] | | | TESTS | | | [...]
--- OUTSIDE RECORDS SUMMARY | ~2020-02-29 | XMS | Encounter Summary ---
Demographics + + + | Address | [address] | | | [place] [address] | + + + | Home Phone [...] Team Providers + +------+ + | Care Blasting Gang Miner Name | Role | Phone | [...] + + | 03/19/ | Telephone | [facility] | Emmy-Kamlesh, | Other (bowel issues) | | 2017 | | MEDICINE [address] | MD [place] | | | | | [place], | [address] [place] | | | | | [place] [address] | [place] [address] | | | | | [phone] | [phone] | | | | | | | [...] out of the office and advised to henrry ct her surgeon's office or her local [...] a llergic to dairy products. Please call [phone]. elephone Encounter - Adriana Cantor - 03/19/2018 12:24 PM PDTPatient called wanting [...] r antibiotic and medications. Patient has no home health care worker with her today and her son is in [facility]. Patient would like a call back [...] | | | | | [place] [address] | | | | | | [phone] | | | | | | | | +--------+---------+ + + + documented as of this encounter Visit Diagnoses Not on filedocumented in this encounter"
--- OUTSIDE RECORDS SUMMARY | ~2020-02-29 | XMS | Encounter Summary ---
Demographics + + + | Address | [address] | | | [place] [address] | + + + | Home Phone [...] Providers + +------+ + | Care Operations Chief Name | Role | Phone | + +------+ + | Petrona Thapa | PCP | | | MD | | | + +------+ + Encounter Details +--------+ + + + + | Date | Type | Department | Care Team | Description | +--------+ + + + + | 09/15/ | Hospital | [facility] | Alanis, | Pain in right lower | | 2019 | Encounter | [facility] [address] [facility] | MD Petrona | leg | | | | [address] [place] | [address] | | | | | [place], [place] | [place] [address] | | | | | [address] | [phone] | | | | | [phone] | | | +--------+ + + + [...] | 1 | 05/04/20 | | | (SHAYNA-CON M20) 20 | [...] | | | | | [place] [address] | | | | | | [phone] | | | | | | | [...]
--- OUTSIDE RECORDS SUMMARY | ~2020-02-29 | XMS | Encounter Summary ---
Demographics + + + | Address | [address] | | | [place] [address] | + + + | Home Phone [...] Providers + +------+ + | Care Header Set Up Operator Name | Role | [...] | | | [facility] | [place], [place] | | | | | [address] | [address] | | | | | [address] | [phone] | | | | | [facility] | | | | | | Physician's | | | | | | [facility], | | | | | | [place] [address] | | | | | | [phone] | | | +--------+ + + + [...] istratively closed with the authorization of the [facility] Committee. elephone Encounter - Charly Shoemaker - 07/05/2013 1:24 PM PSTPatient called she would like to get her lab results from her last draw please give her a call back soila. documented in this encounter Plan of Treatment Not on filedocumented as of this encounter Visit Diagnoses Not on filedocumented in this encounter"
--- OUTSIDE RECORDS SUMMARY | ~2020-02-29 | XMS | Encounter Summary ---
Demographics + + + | Address | [address] | | | [place] [address] | + + + | Home Phone [...] Providers + +------+ + | Care Factory Assembler Name | Role | Phone | [...] | | 2018 | | [facility] [address] | MD Petrona | | | | | [place], | [address] [place] | | | | | [place] [address] | [place] [address] | | | | | [phone] | [phone] | | | | | | | [...] [place] | | | | | | [place] [address] | | | | | | [phone] | | | | | | | | +--------+---------+ + + + documented as of this encounter Visit Diagnoses + + | Diagnosis | + + | Chronic bilateral low back pain without sciatica | + + documented in this encounter"
--- OUTSIDE RECORDS SUMMARY | ~2020-02-29 | XMS | Encounter Summary ---
Demographics + + + | Address | [address] | | | [place] [address] | + + + | Home Phone [...] Providers + +------+ + | Care Pit Clerk Name | Role | Phone | [...] + + | 05/11/ | Telephone | [facility] | Alanis, | Results | | 2016 | | MEDICINE [address] | MD Petrona | | | | | [place], | [address] [facility] [place] | | | | | [place] [address] | [place] [address] | | | | | [phone] | [phone] | | | | | | | [...] results yet. She states [facility] in [place] said they sent them to us but I explained to her that if they mailed them then the results will be processed as scanned media document and that take s some time. Will attempt to get imaging reports expedited from [facility]. elephone EncounAlan Riggs - 05/12/2017 1:36 PM PSTPatient is calling on status of xray i n [place], [place]. Patient is asking for a call back. elephone Encounter - Alan Odell - 2016 3:53 PM PSTPatient called back regarding image results elephone Encounter - Alan Odell - 05/11/2017 9:24 AM PSTContact/Caller: Belinda Contact Number: [phone] Provider/Nurse: Emmy Reason for Call: Patient's is asking about image results done on Thursday in [facility]. Shaniae nt also is asking that the results be sent to doctor in [place]. Please advise. Last Appointment: 05-04-17 Next Appointment: documented in th is encounter Plan of Treatment +--------+---------+ + + + | Date | Type | Specialty | Care Team | Description | +--------+---------+ + + + | 05/17/ | Office | Internal Medicine | Alanis, | | | 2019 | Visit | | MD Petrona | | | | | | [address] [facility] | | | | | | [place] [address] | | | | | | [phone] | | | | | | | | +--------+---------+ + + + documented as of this encounter Visit Diagnoses + + | Diagnosis | + + | Acute bilateral low back pain with bilateral sciatica - Primary | + + documented in this encounter"
--- OUTSIDE RECORDS SUMMARY | ~2020-02-29 | XMS | Encounter Summary ---
Demographics + + + | Address | [address] | | | [place] [address] | + + + | Home Phone [...] + +------+ + | Care Human Resources Generalist Name | Role | Phone | [...] + | 10/11/ | Telephone | [facility] | Alanis, | LABS | | 2018 | | MEDICINE [address] | MD Petrona | | | | | [place], | [address] [facility] | | | | | [place] [address] | [place] [address] | | | | | [phone] | [phone] | | | | | | | [...] sent orders to inter path labs in [place]. Veto lentz signed by Bob Tinoco at 10/11/2018 10:46 AM PDTdocumented in this encounter Plan of Treatment +--------+---------+ + + + | Date | Type | Specialty | Care Team | Description | +--------+---------+ + + + | 05/17/ | Office | Internal Medicine | Alanis, | | | 2019 | Visit | | MD Petrona | | | | | | [address] [place] [address] | | | | | | [place] [address] | | | | | | [phone] | | | | | | | | +--------+---------+ + + + documented as of this encounter Visit Diagnoses + + | Diagnosis | + + | Osteoporosis, unspecified osteoporosis type, unspecified pathological fracture | | presence - Primary | + + documented in this encounter"
--- OUTSIDE RECORDS SUMMARY | ~2020-02-29 | XMS | Encounter Summary ---
Demographics + + + | Address | [address] | | | [place] [address] | + + + | Home Phone [...] Providers + +------+ + | Care Digital Photo Printer Name | Role | Phone | + +------+ + | Pedrito Gutierrez MD | PCP | | + +------+ + Encounter Details +--------+---------+ + + + | Date | Type | Department | Care Team | Description | +--------+---------+ + + + | 11/24/ | Office | Comprehensive Pain | Nathalia Arora | Left Knee Pain; | | 2006 | Visit | [facility] | [address] | Spondylosis with | | | | [place] [address] | [address] [place], | Myelopathy, Lumbar | | | | [address] Center for | [place] [address] | Region; Herniated | | | | Health and Healing, | | Lumbar | | | | | | Intervertebral Disc | | | | Floor [place], [place] | | L4-5; Fibromyalgia | | | | [address] | | syndrome 729.1 | | | | [phone] | | | +--------+---------+ + + + [...] Date: December 02, 2006 Patient: Belinda Meehan, [id number], 1960 I agree with the proposed Physical Therapy Treatment Plan. Provider: DELFINA MOLINA ANP Nathalia Garrett - 007 11:16 AM PDT Physical Therapy Medicare Progress Note Date: 11/27/2006 Belinda Meehan [id number]. 1960 Start of Care: 11/24/2006 Referring Provider: [...] the free margin and undersurface of the managed care liaison horn of the medial meniscus suspicious for [...] are to increased strength and endurance . USP goals: Improve gait so patient can ambulate with single based cane. Plan: Patient will return for f/u visit in 2 weeks and at that time will progress in core, hip, and knee strengthening regime. Treatment began: 1100 Treatment ended: 1200 Nathalia Arora, Physical Therapist License #[id number] documented in this encoun ter Plan of Treatment + + +--------+ + + | Name | Type | Priori | Associated Diagnoses | Order Schedule | | | | ty | | | + + +--------+ + + | [facility] | Procedures | Routin | [...]
--- OUTSIDE RECORDS SUMMARY | ~2020-02-29 | XMS | Encounter Summary ---
Demographics + + + | Address | [address] | | | [place] [address] | + + + | Home Phone [...] Providers + +------+ + | Care Test Skein Winder Name | Role | Phone | [...] + | 06/24/ | Telephone | [facility] | Alanis, | Medication Orders | | 2018 | | [facility] [address] | MD Petrona | | | | | [place], | [address] [place] | | | | | [place] [address] | [place] [address] | | | | | [phone] | [phone] | | | | | | | [...] 90 day supply to vikram becerra [place]. Please advise P M PSTTelephone Encounter - Petrona Thapa MD - 06/24/2018 12:29 PM PSTPlease f ind out how much zofran she uses on average per day and propose an rx for 90 days. Veto lentz signed by Petrona Thapa MD at 06/24/2018 12:30 PM PSTTelephone Encounter - Maggie Montoya LPN - 06/24/2018 9:25 AM PSTPlease advise elephone Encounter - Astrid Grnat - 06/24/2018 8:4 2 AM Jessica called regarding her Zolfran Rx. She stated she only received a prescrition f or 30 days not 90 days. She uses [facility] in [place]. She can be reached at [phone]. 8 :44 AM PSTdocumented in this encounter [...] | | | | | [place] [address] | | | | | | [phone] | | | | | | | | +--------+---------+ + + + documented as of this encounter Visit Diagnoses Not on filedocumented in this encounter"
--- OUTSIDE RECORDS SUMMARY | ~2020-02-29 | XMS | Encounter Summary ---
Demographics + + + | Address | [address] | | | [place] [address] | + + + | Home Phone [...] Providers + +------+ + | Care Food Production Machine Operator Name | Role | Phone [...] Refill | | 2017 | | MEDICINE [place] | MD [place] | | | | | [address] | [address] [facility] [place] | | | | | [place] | [place] [address] | | | | | [address] | [phone] | | | | | [phone] | | | +--------+--------+ + + + [...] 2:11 PM PDTPatient returned call to the [facility]. Patient was asked what medical supply [...] | | | | | [place] [address] | | | | | | [phone] | | | | | | | | +--------+---------+ + + + documented as of this encounter Visit Diagnoses Not on filedocumented in this encounter"
--- OUTSIDE RECORDS SUMMARY | ~2020-02-29 | XMS | Encounter Summary ---
Demographics + + + | Address | [address] | | | [place] [address] | + + + | Home Phone [...] Providers + +------+ + | Care Grocery Store Courtesy Clerk Name | Role | Phone | [...] | | | | sciatica | [place] [address] | | | | | | S/P lumbar | Phone: | | | | | | fusion | [phone] | | | | | | Sacroiliac | Fax: | | | | | | inflammation | [phone] | | | | | | (HCC) [...] | | | | | sciatica | [place] [address] | [address] | | | | | S/P lumbar | Phone: | Phone: | | | | | fusion | [phone] | [phone] | | | | | Sacroiliac | Fax: | Fax: | | | | | inflammation | [phone] | [phone] | | | | | ([facility]) | | | | [...] | | | sciatica | [address] | [address] Phone: | | | | | | [place], | [phone] | | | | | | [place] | Fax: | | | | | | [address] | [phone] | | | | | | Phone: | | | | | | | [phone] | | | | | | | Fax: | | | | | | | [phone] | | +--------+ + + + + + Encounter Details +--------+---------+ + + + | Date | Type | Department | Care Team | Description | +--------+---------+ + + + | 09/23/ | Office | [facility] | Lencho Rivas, | Sacroiliac | | 2019 | Visit | PHYSIATRY [address] | PA-C [address] | inflammation (HCC) | | | | [address] | [address] [place] | (Primary Dx); Acute | | | | [place], [place] | [place] [address] | midline low back | | | | [address] | [phone] | pain with bilateral | | | | [phone] | | sciatica; S/P lumbar | | [...] 9:20 AM PDTReferral to michelle james ([facility]). Referral to massage therapy. Due to [...] press against a nerve. Date Last Reviewed: 08/13/201719990277-5987 The [employer]. [address] [place] [address]. All righ ts reserved. This information is not intended as a substitute for professional medical care. Always follow your healthcare professional's instructions. documented in this encounter Progress Notes Lencho Rivas PA-C - 09/23/2018 9:20 AM PDTFormatting of this note might be different fro m the original. Lencho Rivas PA-C [address] [facility], [address] [place] [address] FAX: CHIEF COMPLAINT: Chief Complaint [...] GERD (gastroesophageal reflux disease) Glaucoma Hyperparathyroidism ([facility]) Hypothyroidism IBS (irritable bowel [...] Spondylosis with myelopathy, lumbar region Stroke ([facility]) Syncope Tremor Type II [...] [facility] MEDICAL PROCEDURE UNIT CURRENT MEDICATIONS: Current [...] (See Comments) Confused and questionable for seizures Mvmrvwuaum-Xcon-Nkahzwdx Hives and Rash Cephalexin Hives Ciprofloxacin Hives [...] apparent deficits with short or shelter memory. Cranial nerves 2-12 appear grossly intact. [...] currently enrolled in a pain clinic in [place], [place]. 5) Patient will follow up with [...] | | | | | [place] [address] | | | | | | [phone] | | | | | | | [...]
--- OUTSIDE RECORDS SUMMARY | ~2020-02-29 | XMS | Encounter Summary ---
Demographics + + + | Address | [address] | | | [place] [address] | + + + | Home Phone [...] | Pain | Diagnoses | Miracle, | Lawrence, | | | | Management | LBP (low | NIHARIKA Jean | Lukasz Rhodes, PhD | | | | | back pain) | [address] | [address] | | | | | DJD | [address] | Ave | | | | | (degenerativ | [place], [place] | [place] | | | | | e joint | [address] | [address] | | | | | disease) of | | Phone: | | | | | knee Knee | | [phone] | | | | | pain Major | | Fax: | | | | | depressive | | [phone] | | | | | disorder, | [...] / | Office | [facility] at [facility] | Lukasz Charles, | Major Depressive | | 2007 | Visit | [address] | PhD [address] | Disorder, Recurrent | | | | Center for Health | [place], [place] | Episode, Moderate | | | | and Healing, | [address] | ([facility]); LBP (Low Back | | | | | [phone] | Pain); Fibromyalgia | | | | Floor [place], [place] | | syndrome 729.1; | | | | [address] | | Adjustment Disorder | | | | [phone] | | with Anxiety; | | | [...] skills during intense pain episode s. Diagnosis: Ackley I: 1. (296.32) Major depressive disorder, recurrent, moderate. 2. (309.24) Adjustment disorder with anxiety. 3. (307.89) Chronic pain disorder associated with both psychological factors and a gene ral medical condition. Ackley II: Deferred Ackley III: abdominal pain, migraine headache, low back pain. Ackley IV: low finances Ackley V: GAF 55-60 Plan: return with next medical follow-up appointment. Check mood, knee surgery, relaxatio n, activity, distraction. Continue cognitive/behavioral therapy. Total time spent with patient was approximately 45 minutes. LUKASZ CHARLES PHD [facility] [address] [facility] [address] [place] [address] documented in this encount er Plan of [...] | | ([facility]) LBP (Low Back | | | | [...]
--- OUTSIDE RECORDS SUMMARY | ~2020-02-29 | XMS | Encounter Summary ---
Demographics + + + | Address | [address] | | | [place] [address] | + + + | Home Phone [...] Providers + +------+ + | Care Protection Chief Industrial Plant Name | Role | Phone | [...] + | 01/08/ | Telephone | [facility] | Alanis, | Results, Imaging | | 2017 | | [facility] [address] | MD [place] | | | | | [place], | [address] [place] | | | | | [place] [address] | [place] [address] | | | | | [phone] | | | | | | | [...] | | | | | [place] [address] | | | | | | [phone] | | | | | | | | +--------+---------+ + + + documented as of this encounter Visit Diagnoses Not on filedocumented in this encounter"
--- OUTSIDE RECORDS SUMMARY | ~2020-02-29 | XMS | Encounter Summary ---
Demographics + + + | Address | [address] | | | [place] [address] [...] Team Providers + +------+ + | Care Gymnastics Instructor Name | Role | Phone | [...] Services | Therapy | Acute pain | Abbot | [facility] | | | Required | | of right | Eliud, | PHYSICAL | | | | | shoulder | MD [address] | THERAPY [address] | | | | | Tear of | [address] | [place] | | | | | right | [place], | [place], [place] | | | | | supraspinatu | [place] | [address] | | | | | s tendon, | [address] | Phone: | | | | | initial | Phone: | [phone] | | | | | encounter | [phone] | Fax: | | | | | | Fax: | [phone] | | | | | | [phone] | | +--------+ + + + + [...] | | right | [address] | [address] Phone: | | | | | supraspinatu | [place], | [phone] | | | | | s tendon, | [place] | Fax: | | | | | initial | [address] | [phone] | | | | | encounter | Phone: | | | | | | | [phone] | | | | | | | Fax: | | | | | | | [phone] | | +--------+ + + + + + Encounter Details +--------+---------+ + + + | Date | Type | Department | Care Team | Description | +--------+---------+ + + + | 02/23/ | Office | [facility] [place] | Lc Vail | Acute pain of right | | 2018 | Visit | ORTHOPEDIC SURGERY | MD Eliud [address] | shoulder; Tear of | | | | [address] [place] | [address] | right supraspinatus | | | | [place] | [place] [address] | tendon, initial | | | | [address] | [phone] | encounter | | | | [phone] | | | +--------+---------+ + + + [...] the shoulder. Try to hold the stretch goi3tkfzeeh. 3. Work up to lsxoj0nsiz of this stretch,3times a day. Work up [...] ask your healthcare provider. Date Last Reviewed: 07/16/201719990375-6218 [employer]. [address] [place] [address], [place] [address]. All righ ts reserved. This information is not intended as a substitute for professional medical care. Always follow your healthcare professional's instructions. documented in this encounter Progress Notes Lc Vail MD - 02/23/2018 1:30 PM PDTFormatting of this note might be different fro m the original. [facility] HISTORY AND PHYSICAL EXAMINATION [...] Procedure: COLONOSCOPY; Surgeon: Luther Brito MD; Location: [facility] MEDICAL PROCEDURE UNIT DILATION AND CURETTAGE OF UTERUS ELBOW SURGERY FINGER TRIGGER RELEASE 2002 FINGER TRIGGER RELEASE 2010 GASTRIC BYPASS SURGERY 2004 HYSTERECTOMY 05/14/1980 JOINT REPLACEMENT Bilateral 2007,2008 KNEE ARTHROSCOPY 2005 LAPAROSCOPY 01/27/2015 LAPAROTOMY 2008 ROTATOR CUFF REPAIR 2005 SPINE SURGERY TONSILLECTOMY 1964 UPPER GASTROINTESTINAL ENDOSCOPY N/A 12/18/2017 Procedure: EGD; Surgeon: Luther Brito MD; Location: [facility] MEDICAL PROCEDURE UNIT Allergies: Allergies Allergen Reactions Codeine Sulfate Nausea Only Levofloxacin Hives, Itching and Rash Amitriptyline Hcl Other (See Comments) Confused and questionable for seizures Hdaflggjbw-Vsqd-Oejktcan Hives and Rash Cephalexin Hives Ciprofloxacin Hives [...] 1. Acute pain of right shoulder * [facility] Physical Therapy - AMB Referral triamcinolone acetonide (KENALOG-40) 40 mg/mL injection 40 mg 2. Tear of right supraspinatus tendon, initial encounter * [facility] Physical Therapy - AMB Refe [...] injection. She is very symptomatic at [facility] [place] [facility] and states that she has a [...] made to ensure accuracy; however, inadvertent computerized auto heater mechanic errors may be pre sent. I appreciate the opportunity to help with the management of this patient. Lc Vail MD [facility] umented in this encounter Plan of [...] | | | | | [place] [address] | | | | | | [phone] | | | | | | | [...]
--- OUTSIDE RECORDS SUMMARY | ~2020-02-29 | XMS | Encounter Summary ---
Demographics + + + | Address | [address] | | | [place] [address] | + + + | Home Phone [...] Providers + +------+ + | Care Laundry Washer Name | Role | Phone | [...] | | | | | | [place], | | | | | | | [place] | | | | | | | [address] | | | | | | | Phone: | | | | | | | [phone] | | | | | | | Fax: | | | | | | | [phone] | +--------+--------+ + + + + Encounter Details +--------+---------+ + + + | Date | Type | Department | Care Team | Description | +--------+---------+ + + + | 07/10/ | Office | Digestive Health | Eliezer Ruano, | Abdominal Pain, | | 2008 | Visit | [place] [address] | [address] | dumping syndrome Hx | | | | Ave Mailcode: CH4S | [address] | of gastric bypass | | | | [facility] | [place], [place] | (Primary Dx) | | | | and Healing, | [address] | | | | | Building | [phone] | | | | | Floor [place], [place] | | | | | | [address] | | | | | | [phone] | | | +--------+---------+ + + + [...] and plan of care. ELIEZER RUANO MD [facility] Mailcode: [place] [address] Yuriy Mayo MD - 06/16 [...] surgery, L5-S1 fusion with spur removal in [place], [place] 7 weeks ago. Allergies Allergen Reactions Keflex (Cephalexin) Sulfa (Sulfonamides) Codeine Penicillins Clindamycin Cipro (Ciprofloxacin) Tramadol Morphine IM ( only in [facility]) made gut pain worse 08/27/06: Trial of oral MSIR caused leg swelling Clarithromycin Hives Mainly in the legs Current outpatient prescriptions prior to encounter Medication Sig Dispense Refill aspirin chewable (BABY ASPIRIN) 81 mg Oral Tablet, Chewable 2 daily buPROPion XL (WELLBUTRIN XL) 300 mg Oral Tablet Sustained Release 24 hr take 1 tablet ( 300 mg) by oral route once daily zdhanirfol-ffymiqesnfdgv-hhseobyr (FIORICET) 50-325-40 mg Oral Tablet take 2 [...] 278 01/18 Paniculectomy Hx lumbar fusion 05/2008 L1-C6kgtwez with bone spur removals Review of Systems: [...]
--- OUTSIDE RECORDS SUMMARY | ~2020-02-29 | XMS | Encounter Summary ---
Demographics + + + | Address | [address] | | | [place] [address] | + + + | Home Phone [...] Team Providers + +------+ + | Care Jig Boring Machine Set Up Operator Name | Role [...] | | | Clinical Nutrition | [place], [place] | | | | | [address] | [address] | | | | | Loop Mailcode: OPC5 | [phone] | | | | | Outpatient Clinic | | | | | | [facility], | | | | | | [place] [address] | | | | | | [phone] | | | +--------+ + + + [...]
--- OUTSIDE RECORDS SUMMARY | ~2020-02-29 | XMS | Encounter Summary ---
Demographics + + + | Address | [address] | | | [place] [address] | + + + | Home Phone [...] Providers + +------+ + | Care Contracts Paralegal Name | Role | Phone | [...] + + | 03/28/ | Documentati | [facility] Comprehensive | Rosi Antonio, | Erroneous Encounter | | 2012 | on | Pain Center at | ANP | - Disregard | | | | [facility] | | | | | | [address] | | | | | | [facility] | | | | | | and Healing, | | | | | | Building | | | | | | Floor [place], [place] | | | | | | [address] | | | | | | [phone] | | | +--------+ + + + [...]
--- OUTSIDE RECORDS SUMMARY | ~2020-02-29 | XMS | Encounter Summary ---
Demographics + + + | Address | [address] | | | [place] [address] | + + + | Home Phone [...] + + | 07/28/ | Telephone | [facility] | Alanis, | Other | | 2019 | | MEDICINE [address] | MD [place]rona | | | | | [place], | [address] [facility] | | | | | [place] [address] | [place] [address] | | | | | [phone] | | | | | | | [...] Advised to speak to neighbor or the tea room manager, states she has and is not [...] | | | | | [place] [address] | | | | | | [phone] | | | | | | | | +--------+---------+ + + + documented as of this encounter Visit Diagnoses Not on filedocumented in this encounter"
--- OUTSIDE RECORDS SUMMARY | ~2020-02-29 | XMS | Encounter Summary ---
Demographics + + + | Address | [address] | | | [place] [address] | + + + | Home Phone [...] Providers + +------+ + | Care Airport Operations Manager Name | Role | Phone [...] as of this encounter Progress Notes Interface, Correspondence School Teacher In - 08/30/2005 2:07 AM PST [id number] [facility] Date: 08/11/2005 Clinic: Colorectal [...] Rebekah Navas M.D. Chris Padgett M.D. / [id number] / [id number] / [id number] / [id number] E: 08/14/2005 kr cc: Dr. Sarah De Jesus, [place] Electronically signed by Chris Padgett 08-29-2005 03:28:30 PM documented i n this encounter Plan of Treatment Not on filedocumented as of this encounter Visit Diagnoses Not on filedocumented in this encounter"
--- OUTSIDE RECORDS SUMMARY | ~2020-02-29 | XMS | Encounter Summary ---
Demographics + + + | Address | [address] | | | [place] [address] | + + + | Home Phone [...] Providers + +------+ + | Care Steam Brush Operator Name | Role | Phone | [...] + + | 04/08/ | Telephone | [facility] Division of | Carlos Arreola, | Swelling | | 2005 | | Gastroenterology/Hep | [address] | ([facility]) | | | | atology [address] | [address] | | | | | [address] | [place] [address] | | | | | Mailcode: PV310 | [phone] | | | | | [address] | | | | | | [address] | | | | | | [place], [place] | | | | | | [address] | | | | | | [phone] | | | +--------+ + + + [...] 8:05 AM PSTCall Documentation >> JENNIFER CUEVAS [facility] Apr 09, 2006 4:32 PM Status: Signed She needs to know if anything has been sent to her PCP. She needs to know where to go from here. She will be home by 4 if you can give her a call. elephone Encounter - Jerman Curtis - 04/10/2006 3:17 PM PDTRCVD MSG [phone] 2:48 PM 04/10/06. PT CALLED STATING SHE [...] at 11:15 AM Regarding: REBECA PT Contact: [facility] MSG [phone] 9:09 AM 04/08/06. PT CALLED STATING SHE FORGOT TO ASK ABOUT SOME SWE LLING IN THE INTESTINES, WANTS A CALL BACK WITH AN ANSWER. documented in this encoun ter Plan of Treatment Not on filedocumented as of this encounter Visit Diagnoses Not on filedocumented in this encounter"
--- OUTSIDE RECORDS SUMMARY | ~2020-02-29 | XMS | Encounter Summary ---
Demographics + + + | Address | [address] | | | [place] [address] | + + + | Home Phone [...] Providers + +------+ + | Care Technology Teacher Name | Role | Phone [...] S/P gastric | Sulaiman-Gily | [address] | | | | | bypass | , MD [address] | [address] [place] | | | | | | [address] | [place], [place] | | | | | | [place], | [address] | | | | | | [place] | Phone: | | | | | | [address] | [phone] | | | | | | Phone: | Fax: | | | | | | [phone] | [phone] | | | | | | Fax: | | | | | | | [phone] | | +--------+ + + + + + Reason for Visit +--------+ + | Reason | Comments | +--------+ + | Other | bladder/ bowel issues | +--------+ + Encounter Details +--------+---------+ + + + | Date | Type | Department | Care Team | Description | +--------+---------+ + + + | 10/15/ | Office | [facility] | Alanis, | Mixed stress and | | 2017 | Visit | MEDICINE [address] [place] [address] | MD Petrona | urge urinary | | | | ISMAELE [place], | [address] [place] [address] | incontinence | | | | [place] [address] | [place] [address] | (Primary Dx); OLIVER | | | | [phone] | [phone] | (obstructive sleep | | | | [...] (See Comments) Confused and questionable for seizures Nlicdoyqwf-Lnkx-Rilkmafa Cephalexin Hives Duloxetine Migraines and nausea Ketorolac Hives Morphine Swelling Ropinirole Hcl Hives Tramadol Hcl Nausea Only Qmnqrfchlw-Amkg-Eynyqsrz Hives and Rash Ciprofloxacin Hives and Rash [...] symptoms warrant a GI consult. - * [facility] Gastroenterology - AMB Referral; Future 5. S/P gastric bypass - * [facility] Gastroenterology - AMB Referral; Future 6. Nausea - ondansetron (ZOFRAN ODT) 4 mg disintegrating tablet; Take 1 tablet by mouth every 6 hours . Dispense: 120 tablet; Refill: 3 FOLLOW-UP Return in about 3 months (around 01/15/2018). Note: Parts of this documentwere created using Med[employer]pt[employer] speech recognition software. As a r esult, [...] | | | | | | [address] [place] [address] | | | | | | [place] [address] | | | | | | [phone] | | | | | | | [...]
--- OUTSIDE RECORDS SUMMARY | ~2020-02-29 | XMS | Encounter Summary ---
Demographics + + + | Address | [address] | | | [place] [address] | + + + | Home Phone [...] Providers + +------+ + | Care Coal Passer Name | Role | Phone | [...] + + | 05/26/ | Telephone | [facility] | Alanis, | Medication Question | | 2018 | | MEDICINE [facility] [address] | MD Petrona | | | | | [place], | [address] | | | | | [place] [address] | [place] [address] | | | | | [phone] | [phone] | | | | | | | [...] | | | | | [place] [address] | | | | | | [phone] | | | | | | | | +--------+---------+ + + + documented as of this encounter Visit Diagnoses Not on filedocumented in this encounter"
--- OUTSIDE RECORDS SUMMARY | ~2020-02-29 | XMS | Encounter Summary ---
Demographics + + + | Address | [address] | | | [place] [address] | + + + | Home Phone [...] Providers + +------+ + | Care Tobacco Flavorer Name | Role | Phone | + [...] | | | | [place], | [address] Phone: | | | | | | [place] | [phone] | | | | | | [address] | Fax: | | | | | | Phone: | [phone] | | | | | | [phone] | | | | | | | Fax: | | | | | | | [phone] | | +--------+ + + + + [...] | | | | [address] | [address] Phone: | | | | | | [place], | [phone] | | | | | | [place] | Fax: | | | | | | [address] | [phone] | | | | | | Phone: | | | | | | | [phone] | | | | | | | Fax: | | | | | | | [phone] | | + + + + + [...] + | 10/16/ | Telephone | [facility] | Alanis, | Referral (Follow up) | | 2019 | | MEDICINE [address] | MD Petrona | | | | | [place], | [address] [place] | | | | | [place] [address] | [place] [address] | | | | | [phone] | [phone] | | | | | | | [...] Miscellaneous Notes Telephone Encounter - Teresa Mitchell, Automotive Engineering Teacher - 10/17/2019 11:23 AM PDTPatie nt is scheduled with Dr. Yost for follow up on 12/21/19. Needs a new referral. Orders pended. YOVANI 08/15/19Electronically signed by Teresa Mitchell Automotive Engineering Teacher a t 10/17/2019 11:28 AM PDTdocumented in [...] | | | | | [place] [address] | | | | | | [phone] | | | | | | | [...]
--- OUTSIDE RECORDS SUMMARY | ~2020-02-29 | XMS | Encounter Summary ---
Demographics + + + | Address | [address] | | | [place] [address] | + + + | Home Phone [...] Providers + +------+ + | Care Breast Puller Name | Role | Phone | + +------+ + | Pedrito Gutierrez MD | PCP | | + +------+ + Encounter Details +--------+ + + + + | Date | Type | Department | Care Team | Description | +--------+ + + + + | 11/24/ | Respiratory | | Other, Faculty | | | 2003 | | | [phone] | | | | Therapy-Sc[facility] | | [...]
--- OUTSIDE RECORDS SUMMARY | ~2020-02-29 | XMS | Encounter Summary ---
Demographics + + + | Address | [address] | | | [place] [address] | + + + | Home Phone [...] + + | 02/15/ | Office | [facility] | Alanis, | Antibiotic-associate | | 2019 | Visit | MEDICINE [address] | MD John | d diarrhea (Primary | | | | [place], | [address] [place] | Dx); [place] | | | | [place] [address] | [place] [address] | prescription opiate | | | | [phone] | [phone] | use; Seasonal | | | | [...] John | | | | | | [facility] [address] | | | | | | [place] [address] | | | | | | [phone] | | | | | | | [...] | | | | | mg/dL | [facility] | | | | | | MEDICAL | | | | | | CENTER - | | | | | | LABORATORY | | + + + + + + | eGFR, | >60Comment: GLOMERULAR | >=60 | [facility] | | | non- | FILTRATION | mL/min/1.73m2 | [facility] | | | [place] | RATE,ESTIMATED | | MEDICAL | | | | mL/min/1.79h5Qnht than | | CENTER - | | [...] | | | | | mg/dL | [facility] | | | | | | MEDICAL [...] | [facility] | [address] | [place] | [phone] | | [facility] | | [address] | | | - LABORATORY | | [...] ST. | [address] | [place], [place] | [phone] | | [facility] | | [address] | | | - LABORATORY | | | | + + + + + documented in this encounter Visit Diagnoses + + | Diagnosis | + + | Antibiotic-associated diarrhea - Primary Diarrhea | + + | prison prescription opiate use | + + | [...] | | | First dose on [facility] 10/15/17 at 1215 | | | [...]
--- OUTSIDE RECORDS SUMMARY | ~2020-02-29 | XMS | Encounter Summary ---
Demographics + + + | Address | [address] | | | [place] [address] | + + + | Home Phone [...] Providers + +------+ + | Care Upsetter Name | Role | Phone | + [...] + + | 12/10/ | Telephone | [facility] | Alanis, | Lab Results | | 2017 | | MEDICINE [address] | MD Petrona | | | | | [place], | [address] [facility] | | | | | [place] [address] | [place] [address] | | | | | [phone] | | | | | | | [...] | | | | | [place] [address] | | | | | | [phone] | | | | | | | | +--------+---------+ + + + documented as of this encounter Visit Diagnoses Not on filedocumented in this encounter"
--- OUTSIDE RECORDS SUMMARY | ~2020-02-29 | XMS | Encounter Summary ---
Demographics + + + | Address | [address] | | | [place] [address] | + + + | Home Phone [...] Providers + +------+ + | Care Manufacturing Quality Inspector Name | Role | Phone | [...] + | 06/16/ | Clinical | [facility] | Emmy-Kamlesh, | B12 deficiency | | 2020 | Support | MEDICINE [address] | MD Petrona | (Primary Dx) | | | | [place], | [address] [facility] | | | | | [place] [address] | [place] [address] | | | | | [phone] | [phone] | | | | | | | [...] | | | | | | [place] [address] | | | | | | [phone] | | | | | | | [...]
--- OUTSIDE RECORDS SUMMARY | ~2020-02-29 | XMS | Encounter Summary ---
Demographics + + + | Address | [address] | | | [place] [address] | + + + | Home Phone [...] Providers + +------+ + | Care Roll Carrier Name | Role | Phone | [...] as of this encounter Progress Notes Interface, Vehicle Delivery Worker In - 02/15/2006 2:03 AM PDT [id number] GEOVANNI [place] [id number] Clinic Date: 01/29/2006 Clinic: Endocrinology Belinda Meehan [...] her visits to the Emergency Department in [place], she apparently had elevated "liver enzyme levels" and her blood pressure was up to 160/98. She subsequently underwent diagnostic testing that apparently included CT imaging of her abdomen and upper GI endoscopy, abdominal ultrasound, and other testing; the results of which have apparently been normal. She started going to [employer] approximately 2 weeks ago which has increased her level of physical activity. She has only occasional headaches, due in part to ongoing treatment with propanolol. She apparently was referred by Dr. Padgett to see a cafe cook here at [facility] for further [...] ([facility] and pulse 60 beats per [...] evaluated recently at the Emergency Department in [place]. Her alkaline phosphatase level today is about [...] would benefit from being evaluated by a cafe cook. According to the patient, no gastroenterologists are available in [place]. She needs to petition her primary care provider and her insurance company to give the necessary authorization to allow her to be evaluated by a cafe cook. Plan: 1. Await results of serum 25-hydroxyvitamin [...] She needs to be seen by a cafe cook. 5. Return to see me again in 3 months. Beto Meeks M.D. PD / HS [id number] / [id number] / [id number] / cc: Pedrito Gutierrez M.D. [address] [place] [address] Chris Padgett M.D. Electronically signed by Beto Meeks 02-14-2006 02:02:55 AM documented i n this encounter Plan of Treatment Not on filedocumented as of this encounter Visit Diagnoses Not on filedocumented in this encounter
--- OUTSIDE RECORDS SUMMARY | ~2020-02-29 | XMS | Encounter Summary ---
Demographics + + + | Address | [address] | | | [place] [address] | + + + | Home Phone [...] Team Providers + +------+ + | Care Chairman And Ceo Name | Role | Phone | + [...] + | 08/20/ | Telephone | [facility] | Alanis, | Other | | 2017 | | MEDICINE [address] | MD Petrona | | | | | [place], | [address] [facility] | | | | | [place] [address] | [place] [address] | | | | | [phone] | [phone] | | | | | | | [...] PM PDTPatient notified of corre ctions elephone [facility]rona [facility] - 08/24/2017 11:57 AM PDTCorrections made. Electronical ly signed by Petrona Thapa MD at 08/24/2017 11:57 AM PDTTelephone Encounter - Adriana Cantor - 08/20/2017 9:06 AM PSTPatient called in wanting to speak with the nurs e regarding an issue with her records. Patient stated she was seen in [place] yesterday for a s urgery on her [...] Petrona | | | | | | [facility] [address] | | | | | | [place] [address] | | | | | | [phone] | | | | | | | | +--------+---------+ + + + documented as of this encounter Visit Diagnoses Not on filedocumented in this encounter"
--- OUTSIDE RECORDS SUMMARY | ~2020-02-29 | XMS | Encounter Summary ---
Demographics + + + | Address | [address] | | | [place] [address] | + + + | Home Phone [...] Providers + +------+ + | Care Plate Drying Machine Tender Name | Role | Phone [...] + + | 12/28/ | Telephone | [facility] | Alanis, | Radiology | | 2017 | | MEDICINE [address] | MD Petrona | Appointment | | | | [place], | [address] [facility] | | | | | [place] [address] | [place] [address] | | | | | [phone] | [phone] | | | | | | | [...] | | | | | [place] [address] | | | | | | [phone] | | | | | | | | +--------+---------+ + + + documented as of this encounter Visit Diagnoses Not on filedocumented in this encounter"
--- OUTSIDE RECORDS SUMMARY | ~2020-02-29 | XMS | Encounter Summary ---
Demographics + + + | Address | [address] | | | [place] [address] | + + + | Home Phone [...] | VNG/FAMILYCA | [place], | [address] [facility] | | | | | RE/E[place]y | [place] [address] | [place] | | | | | Procedures | Phone: | [address] Phone: | | | | | [place] | [phone] | [phone] | | | | | SPONTANEOUS | Fax: | Fax: | | | | | [facility] | [phone] | [phone] | | | | | TEST AR | | | | | | | POSITIONAL | | | | | | | [facility] | | | | | | | TEST AR | | | | | | | CALORIC | | | | | | | VESTIBULAR | | | | | | | TEST AR | | | | | | | OPTOKINETIC | | | | | | | [facility] | | | | | | | TEST AR | | | | | | | OSCILLATING | | | | | | | TRACKING | | | | | | | TEST AR | | | | | | | SUPPLEMENTAL | | | | | | | ELECTRICAL | | | | | | | TEST AR | | | | | | [...] + | 12/07/ | Office | [facility] | Elisabet Munson MS | Vertigo of central | | 2015 | Visit | AUDIOLOGY AND | [facility] [address] | origin, unspecified | | | | HEARING AID SERVICES | [address] [facility] | laterality (Primary | | | | [address] | [place] [address] | Dx) | | | | [address] [facility] | [phone] | | | | | [place] [address] | | | | | | [phone] | | | +--------+---------+ + + + [...] M.D. VNG testing revealed abnormal oculomotor subtests. [place] pike revealed nystagmus when [...] | | | | | [place] [address] | | | | | | [phone] | | | | | | | [...]
--- OUTSIDE RECORDS SUMMARY | ~2020-02-29 | XMS | Encounter Summary ---
Demographics + + + | Address | [address] | | | [place] [address] | + + + | Home Phone [...] Team Providers + +------+ + | Care Immunology Specialist Name | Role | Phone | [...] | | | | Clinical Nutrition | [place], [place] | | | | | [address] | [address] | | | | | Loop Mailcode: OPC5 | [phone] | | | | | Outpatient Clinic | | | | | | [facility] | | | | | | [place] [address] | | | | | | [phone] | | | +--------+ + + + [...] | + + + + + | [facility] | [address] | [place] [address] | | | LABORATORY | | | [...] | + + + + + | [facility] | [address] | [place] [address] | | | LABORATORY | | | [...] + + + | [facility] | [address] | [place] [address] | | | LABORATORY | | | [...] [place] | | | | | | [place] [...] | + + + + + | [facility] | [address] | [place] [address] | | | LABORATORY | | | [...] [facility] | [address] | [place] [address] | | | PATHOLOGY | [address] | | | + + + + + | [facility] | [address] | [place] [address] | | | PATHOLOGY | [address] | | | + + + + + documented in this encounter Visit Diagnoses Not on filedocumented in this encounter"
--- OUTSIDE RECORDS SUMMARY | ~2020-02-29 | XMS | Encounter Summary ---
Demographics + + + | Address | [address] | | | [place] [address] | + + + | Home Phone [...] Team Providers + +------+ + | Care Re Etcher Name | Role | Phone | [...] as of this encounter Procedure Notes Interface, Courtroom Clerk In - 05/20/2005 10:44 AM PSTVascular Lab [...]
--- OUTSIDE RECORDS SUMMARY | ~2020-02-29 | XMS | Encounter Summary ---
Demographics + + + | Address | [address] | | | [place] [address] | + + + | Home Phone [...] + + | 01/05/ | Telephone | [facility] | Luther Brito MD | Results | | 2018 | | GASTROENTEROLOGY | [address] | | | | | [address] [facility] | [place], [place] | | | | | [address] [place] | [address] | | | | | [address] | [phone] | | | | | [phone] | | | +--------+ + + + [...] | | | | | [place] [address] | | | | | | [phone] | | | | | | | | +--------+---------+ + + + documented as of this encounter Visit Diagnoses Not on filedocumented in this encounter"
--- OUTSIDE RECORDS SUMMARY | ~2020-02-29 | XMS | Encounter Summary ---
Demographics + + + | Address | [address] | | | [place] [address] | + + + | Home Phone [...] Team Providers + +------+ + | Care Apiculture Teacher Name | Role | Phone | [...] PHYSIATRY [address] | MD [address] | | | | | [address] | [place] | | | | | [place] | [address] | | | | | [address] | | | | | | [phone] | | | +--------+ + + + [...] | | | | | [place] [address] | | | | | | [phone] | | | | | | | | +--------+---------+ + + + documented as of this encounter Visit Diagnoses Not on filedocumented in this encounter"
--- OUTSIDE RECORDS SUMMARY | ~2020-02-29 | XMS | Encounter Summary ---
Demographics + + + | Address | [address] | | | [place] [address] | + + + | Home Phone [...] Providers + +------+ + | Care Scrap Preparer Name | Role | Phone | + +------+ + | Petrona Thapa | PCP | | | MD | | | + +------+ + Encounter Details +--------+ + + + + | Date | Type | Department | Care Team | Description | +--------+ + + + + | 03/02/ | [facility] | [facility] | Alanis, | Neck pain on right | | 2018 | Encounter | [facility] [address] X[facility] | MD Petrona | side | | | | [address] [place] | [address] [facility] | | | | | [place], [place] | [place] [address] | | | | | [address] | [phone] | | | | | [phone] | | | +--------+ + + + [...] Petrona | | | | | | [address] [place] [address] [place] | | | | | | [place] [address] | | | | | | [phone] | | | | | | | [...]
--- OUTSIDE RECORDS SUMMARY | ~2020-02-29 | XMS | Encounter Summary ---
Demographics + + + | Address | [address] | | | [place] [address] | + + + | Home Phone [...] + | 02/11/ | Telephone | [facility] | Alanis, | Arm Pain (Right Arm) | | 2017 | | MEDICINE [address] | MD Petroan | | | | | [place], | [address] | | | | | [place] [address] | [place] [address] | | | | | [phone] | | | | | | | [...] | | | | | [place] [address] | | | | | | [phone] | | | | | | | | +--------+---------+ + + + documented as of this encounter Visit Diagnoses Not on filedocumented in this encounter"
--- OUTSIDE RECORDS SUMMARY | ~2020-02-29 | XMS | Encounter Summary ---
Demographics + + + | Address | [address] | | | [place] [address] | + + + | Home Phone [...] + +------+ + | Care Head Of History Name | Role | Phone [...] | | sciatica | [address] | [address] Phone: | | | | | | [place], | [phone] | | | | | | [place] | Fax: | | | | | | [address] | [phone] | | | | | | Phone: | | | | | | | [phone] | | | | | | | Fax: | | | | | | | [phone] | | +--------+ + + + + [...] + + | 07/15/ | Telephone | [facility] | [place]is, | Medication Orders | | 2018 | | [address] | MD John | | | | | [place], | [address] [place] | | | | | [place] [address] | [place] [address] | | | | | [phone] | [phone] | | | | | | | [...] be referred again to physiatry Dr. Cowart [facility]. Please advise elep martell Encounter - John Thapa MD - 07/16/2018 11:51 AM PSTRefilled.Veto lentz signed by John Thapa MD at 07/16/2018 11:51 AM PSTTelephone Encounter - Ayla Quezada - 07/16/2018 11:33 AM PSTPatient called in to check the status of her medication refill. Please advise [phone] signed by Ayla Quezada at 07/16/2018 11:34 [...] | | | [address] [facility] [place] | | | | | | [place] [address] | | | | | | [phone] | | | | | | | [...]
--- OUTSIDE RECORDS SUMMARY | ~2020-02-29 | XMS | Encounter Summary ---
[...] Providers + +------+ + | Care Mobile Engineer Name | Role | Phone | + +------+ + | Maria Esther Cintron MD | PCP | | + +------+ + Encounter Details +--------+ + + + + | Date | Type | Department | Care Team | Description | +--------+ + + + + | 10/27/ | Telephone | [facility] | Chris Padgett, | | | 2008 | | [place] [address] | [address] [facility] | | | | | Bethanie Mailcode: CH4S | Naeem Mcrae | | | | | Center for Health | [place], [place] | | | | | and Healing, | [address] | | | | | Building , 6th | [phone] | | | | | Floor [place], [place] | | | | | | [address] | | | | | | [phone] | | | +--------+ + + + [...]
--- OUTSIDE RECORDS SUMMARY | ~2020-02-29 | XMS | Encounter Summary ---
Demographics + + + | Address | [address] | | | [place] [address] | + + + | Home Phone [...] Providers + +------+ + | Care Diesel Service Journeyman Name | Role | Phone | [...] [address] | | | | | | [place], [place] | | | | | | [address] | | | | | | [phone] | | | +--------+--------+ + + + [...] PM PDTPatient Name: Belinda Molly HyattAurora s, [id number], 1960 Name of Medication requested: trilptal Date of last refill: 01/11 Dose requested: 150mg Patient has been compliant with [facility] treatment plan: yes Ailyn Wyatt I did not see in her chart where you prescribed, but got fax from pharmacy with miranda warren as perscriber document ed in this encounter Plan of Treatment Not on filedocumented as of this encounter Visit Diagnoses Not on filedocumented in this encounter"
--- OUTSIDE RECORDS SUMMARY | ~2020-02-29 | XMS | Encounter Summary ---
Demographics + + + | Address | [address] | | | [place] [address] | + + + | Home Phone [...] Providers + +------+ + | Care Maintenance And Engineering Manager Name | Role | Phone [...] this encounter Progress Notes Interface, Digital Sales Director In - 07/09/2005 2:07 AM PST [id number] [facility] Date: 07/03/2005 Clinic: Ms. [...] this operation. Chris Padgett M.D. ROSA / [id number] / [id number] / [id number] / [id number] Electronically signed by Chris Padgett 07-08-2005 01:45:20 PM documented i n this encounter Plan of Treatment Not on filedocumented as of this encounter Visit Diagnoses Not on filedocumented in this encounter"
--- OUTSIDE RECORDS SUMMARY | ~2020-02-29 | XMS | Encounter Summary ---
Demographics + + + | Address | [address] | | | [place] [address] | + + + | Home Phone [...] | | Center at [facility] [address] | PRINT COLOR OPERATOR [address] | | | | | [address] [place] | [facility] [address] | | | | | for Health and | [place], [place] | | | | | [place] [address] | [address] | | | | | [place], [place] | [phone] | | | | | [address] | | | | | | [phone] | | | +--------+ + + + [...]
--- OUTSIDE RECORDS SUMMARY | ~2020-02-29 | XMS | Encounter Summary ---
Demographics + + + | Address | [address] | | | [place] [address] | + + + | Home Phone [...] | | MD [address] | [place] [address] | | | | | | [address] | Phone: | | | | | | [place], | [phone] | | | | | | [place] | Fax: | | | | | | [address] | [phone] | | | | | | Phone: | | | | | | | [phone] | | | | | | | Fax: | | | | | | | [phone] | | +--------+ + + + + [...] + + | 08/13/ | Telephone | [facility] | Alanis, | Medication Question | | 2018 | | [facility] [address] | MD Petrona | | | | | [place], | [address] [place] | | | | | [place] [address] | [place] [address] | | | | | [phone] | [phone] | | | | | | | [...] PS TPatient returned phone call please call [phone]. elephone Encounter - Maggie Montoya LPN - [...] 08/13/2018 1:33 PM PSTCall to Frida in [place] spoke with pharmacist Alek, states p atstephanie [...] patient is requesting a return phone call. [facility] [phone]. P STdocumented in this encounter Plan of [...] | | | | | [place] [address] | | | | | | [phone] | | | | | | | [...]
--- OUTSIDE RECORDS SUMMARY | ~2020-02-29 | XMS | Encounter Summary ---
Demographics + + + | Address | [address] | | | [place] [address] | + + + | Home Phone [...] Providers + +------+ + | Care Portfolio Management Marketing Name | Role | Phone | [...] + + | 05/26/ | Telephone | [facility] | Alanis, | Diarrhea | | 2017 | | MEDICINE [address] | MD [place] | | | | | [place], | [address] [facility] | | | | | [place] [address] | [place] [address] | | | | | [phone] | [phone] | | | | | | | [...] | | | | | [place] [address] | | | | | | [phone] | | | | | | | | +--------+---------+ + + + documented as of this encounter Visit Diagnoses Not on filedocumented in this encounter"
--- OUTSIDE RECORDS SUMMARY | ~2020-02-29 | XMS | Encounter Summary ---
Demographics + + + | Address | [address] | | | [place] [address] | + + + | Home Phone [...] Providers + +------+ + | Care Job Hand Name | Role | Phone | [...] as of this encounter Progress Notes Interface, Deposition Reporter In - 06/23/2006 2:36 AM PST [id number] GEOVANNI Barnes [id number] Clinic Date: 05/05/2006 Clinic: Endocrinology Subjective: Belinda [...] replacement. Beto Meeks M.D. PD / HS [id number] / [id number] / [id number] / cc: Pedrito Gutierrez M.D. [address] [place] [address] Joanna Arshad M.D. [facility] Electronically signed by Beto Meeks 06-20-2006 11:48:11 PM documented i n this encounter Plan of Treatment Not on filedocumented as of this encounter Visit Diagnoses Not on filedocumented in this encounter"
--- OUTSIDE RECORDS SUMMARY | ~2020-02-29 | XMS | Encounter Summary ---
Demographics + + + | Address | [address] | | | [place] [address] | + + + | Home Phone [...] + + | 08/19/ | Telephone | [facility] | Alanis, | Cold-like Symptoms | | 2018 | | MEDICINE [address] | MD [place] | | | | | [place], | [address] | | | | | [place] [address] | [place] [address] | | | | | [phone] | [phone] | | | | | | | [...] call for advise from nurse. Please call [phone] . documented in this encounter Plan of [...] | | | | | [place] [address] | | | | | | [phone] | | | | | | | | +--------+---------+ + + + documented as of this encounter Visit Diagnoses Not on filedocumented in this encounter"
--- OUTSIDE RECORDS SUMMARY | ~2020-02-29 | XMS | Encounter Summary ---
Demographics + + + | Address | [address] | | | [place] [address] | + + + | Home Phone [...] Providers + +------+ + | Care Manager Management Name | Role | Phone | [...] | | | [facility] | [place], [place] | | | | | [address] | [address] | | | | | [address] | [phone] | | | | | [facility] | | | | | | Physician's | | | | | | [facility] | | | | | | [place] [address] | | | | | | [phone] | | | +--------+--------+ + + + [...]
--- OUTSIDE RECORDS SUMMARY | ~2020-02-29 | XMS | Encounter Summary ---
Demographics + + + | Address | [address] | | | [place] [address] | + + + | Home Phone [...] Providers + +------+ + | Care Technical Sales Associate Name | Role | Phone [...] | | 2005 | | Center at [facility] [address] | [address] [facility] | | | | | [facility] | [facility] | | | | | for [facility] and | [place] [address] | | | | | [facility], [facility] 2 | [phone] | | | | | [place], [place] | | | | | | [address] | | | | | | [phone] | | | +--------+ + + + [...]
--- OUTSIDE RECORDS SUMMARY | ~2020-02-29 | XMS | Encounter Summary ---
Demographics + + + | Address | [address] | | | [place] [address] | + + + | Home Phone [...] + +------+ + | Care Electric Motor Winder Name | Role | Phone | [...] [place] | | | | | [place] [address] | [place] [address] | | | | | [phone] | [phone] | | | | | | | [...] medication remaining: none Quantity: ? Pharmacy: [facility] Call/Mail/Osd Clerk/Fax: fax Date of Last Refill:unknown Date of [...] | | | | | [place] [address] | | | | | | [phone] | | | | | | | | +--------+---------+ + + + documented as of this encounter Visit Diagnoses Not on filedocumented in this encounter"
--- OUTSIDE RECORDS SUMMARY | ~2020-02-29 | XMS | Encounter Summary ---
Demographics + + + | Address | [address] | | | [place] [address] | + + + | Home Phone [...] Team Providers + +------+ + | Care Firebrick Layer Name | Role | Phone | [...] | | | | [facility] | [place], [place] | | | | | [address] | [address] | | | | | [place], [place] | [phone] | | | | | [address] | | | | | | [phone] | | | +--------+ + + + [...]
--- OUTSIDE RECORDS SUMMARY | ~2020-02-29 | XMS | Encounter Summary ---
Demographics + + + | Address | [address] | | | [place] [address] | + + + | Home Phone [...] Providers + +------+ + | Care Production Officer Name | Role | Phone | [...] | | | | Clinical Nutrition | [place], [place] | | | | | [address] | [address] | | | | | Loop Mailcode: OPC5 | [phone] | | | | | Outpatient Clinic | | | | | | [facility] | | | | | | [place] [address] | | | | | | [phone] | | | +--------+ + + + [...] | + + + + + | [facility] | [address] | [place] [address] | | | LABORATORY | | | [...] | + + + + + | [facility] | [address] | [place] [address] | | | LABORATORY | | | [...] Test performed by | | | [facility]. | | + + + + + + + + | Performing | Address | City/State/Zipcode | Phone Number | | Organization | | | | + + + + + | [facility] | [address] | [place] [address] | | | LABORATORY | | | | + + + + + documented in this encounter Visit Diagnoses Not on filedocumented in this encounter"
--- OUTSIDE RECORDS SUMMARY | ~2020-02-29 | XMS | Encounter Summary ---
Demographics + + + | Address | [address] | | | [place] [address] | + + + | Home Phone [...] Providers + +------+ + | Care Load Out Person Name | Role | Phone | [...] | | | | [address] [facility] | | | | | | [address] [place] | | | | | | [address] | | | | | | [phone] | | | +--------+ + + + [...] | | | | | | [address] [place] [address] [address] [place] | | | | | | [place] [address] | | | | | | [phone] | | | | | | | | +--------+---------+ + + + documented as of this encounter Visit Diagnoses Not on filedocumented in this encounter"
--- OUTSIDE RECORDS SUMMARY | ~2020-02-29 | XMS | Encounter Summary ---
Demographics + + + | Address | [address] | | | [place] [address] | + + + | Home Phone [...] Providers + +------+ + | Care Extension Course Counselor Name | Role | Phone | [...] [id number] | | | | | | [place], [place] | | | | | | [address] | | | | | | [phone] | | | +--------+ + + + [...]
--- OUTSIDE RECORDS SUMMARY | ~2020-02-29 | XMS | Encounter Summary ---
[...] | | | [facility] | [place], [place] | and counseling; | | | | [address] | [address] | [place] | | | | [address] | [phone] | | | | | [facility] | | | | | | Physician's | | | | | | Pavilion [place], | | | | | | [place] [address] | | | | | | [phone] | | | +--------+ + + + [...]
--- OUTSIDE RECORDS SUMMARY | ~2020-02-29 | XMS | Encounter Summary ---
Demographics + + + | Address | [address] | | | [place] [address] | + + + | Home Phone [...] Providers + +------+ + | Care Optical Systems Engineer Name | Role | Phone [...] Pavilion | | | | | | [place], [place] | | | | | | [address] | | | | | | [phone] | | | +--------+---------+ + + + [...] surgeries scheduled to take place on the [place] at the [facility]: Surgeries scheduled in the [facility] ([address] [place] [address]): registration is located on the 4th floor of [facility] (Day Surgery). Surgeries scheduled in the [facility]: registration is located on the 9th floor. Surgeries scheduled in [facility]: registration is located on the 6th floor. Surgeries scheduled in the [facility]: registration is located i n the [facility] on the first floor. For surgeries scheduled to take place at the [facility]: registration is l [...] If you use specialized medical equipment at [facility], please check with your provider [...]
--- OUTSIDE RECORDS SUMMARY | ~2020-02-29 | XMS | Encounter Summary ---
Demographics + + + | Address | [address] | | | [place] [address] | + + + | Home Phone [...] Providers + +------+ + | Care Dental Hygienist Name | Role | Phone | + [...] | | | | | site | [place] | [place] | | | | | Cervicalgia | [address] | [address] | | | | | Pain in | | | | | | | joint, site | | | | | | | unspecified | | | | | | | Procedures | | | | | | | [place] | | | | | | [...] Spondylosis | | 2006 | Visit | [facility] | [address] | without Myelopathy | | | | [place] [address] [place], | (Primary Dx); | | | | [facility] for | [place] [address] | Spondylosis with | | | | Health and Healing, | | Myelopathy, Lumbar | | | | Building | | Region; Herniated | | | | Floor [place], [place] | | Lumbar | | | | [address] | | Intervertebral Disc; | | | | [phone] | | Unspecified Myalgia | | | [...] Date: July 17, 2006 Patient: Belinda Meehan, [id number], 1960 I agree with the proposed Physical Therapy Treatment Plan. Provider: DELFINA MOLINA ANP elfina Molina - 007 6:13 PM PST.pt rnaga on Nathalia - 07/15/2006 4:28 PM PSTFormatting of this note might be different from the origin al. Physical Therapy Medicare Progress Note Date: 07/15/2006 Belinda Meehan [id number]. 1960 Start of Care: 06/23/2006 Referring Provider: [...] MA THERAPEUTIC | Procedures | Routin | Cervical [...]
--- OUTSIDE RECORDS SUMMARY | ~2020-02-29 | XMS | Encounter Summary ---
Demographics + + + | Address | [address] | | | [place] [address] | + + + | Home Phone [...] Providers + +------+ + | Care Medical Doctor Md/Medical Director Name | Role | Phone | [...] + + | 01/17/ | Office | [facility] | Alanis, | Surgical wound | | 2019 | Visit | MEDICINE [address] | MD [place] | infection (Primary | | | | [address] [place], | [address] [place] | Dx) | | | | [place] [address] | [place] [address] | | | | | [phone] | [phone] | | | | | | | [...] Common migraine COPD (chronic obstructive pulmonary disease) ([facility]) Depression Diarrhea Dumping syndrome Fall at home Fatigue fracture of vertebra Fibromyalgia Full dentures GERD (gastroesophageal reflux disease) Glaucoma Hyperparathyroidism ([facility]) Hypothyroidism IBS (irritable bowel syndrome) Idiopathic scoliosis Leg edema Low back pain Lumbar postlaminectomy syndrome Lumbar radiculopathy primarily right 01/04/2015 Meniere syndrome Migraine with aura Migraines Muscle cramping Muscle spasm Myalgia Nausea Nonalcoholic hepatosteatosis Obesity Opioid dependence ([facility]) Orthostatic hypotension OLIVER (obstructive sleep apnea) Osteoarthritis, generalized Osteopenia Osteoporosis Palpitations Peripheral neuropathy Rheumatoid arthritis ([facility]) Right arm pain 01/04/2015 RLS (restless [...] Luther Brito MD; Location: [facility] DILATION AND CURETTAGE OF UTERUS ELBOW SURGERY FINGER TRIGGER RELEASE 2003 FINGER TRIGGER RELEASE 2010 GASTRIC BYPASS SURGERY 2004 HYSTERECTOMY 05/14/1980 JOINT REPLACEMENT Bilateral 2007 2008 KNEE ARTHROSCOPY 2005 LAPAROSCOPY 01/27/2015 LAPAROTOMY 2008 ROTATOR CUFF REPAIR 2005 SPINE SURGERY TONSILLECTOMY 1964 UPPER GASTROINTESTINAL ENDOSCOPY N/A 12/18/2017 Procedure: EGD; Surgeon: Luther Brito MD; Location: [facility] CURRENT MEDICATIONS Current Outpatient [...] ours as needed for Pain. Incontinence Supplies [facility] As directed 100 each 11 levoFLOXacin (LEVAQUIN) [...] Allergen Reactions Ensure Diarrhea Food Diarrhea Lactose Psesrmwkmm-Yax-Iwjg-Codeine Other (See Comments) Balance problems Codeine Sulfate Nausea Only Food Allergy Formula Diarrhea Ensure Levofloxacin Hives, Itching and Rash Butalbital Ropinirole Amitriptyline Hcl Other (See Comments) Confused and questionable for seizures Bkdbgqhtzg-Lrnc-Lmytvtud Hives and Rash Cephalexin Hives Ciprofloxacin Hives [...] Note: Parts of this documentwere created using [employer]oo[employer] speech recognition software. As a r esult, [...] | | | | | | [address] [place] [address] | | | | | | [place] [address] | | | | | | [phone] | | | | | | | | +--------+---------+ + + + documented as of this encounter Visit Diagnoses + + | Diagnosis | + + | Surgical wound infection - Primary Other postoperative infection | + + documented in this encounter
--- OUTSIDE RECORDS SUMMARY | ~2020-02-29 | XMS | Encounter Summary ---
Demographics + + + | Address | [address] | | | [place] [address] | + + + | Home Phone [...] + +------+ + | Care Health Information Clerk Name | Role | Phone [...] | | [facility] [address] | PLANT PHYSIOLOGIST [address] | | | | | [address] [place] | [facility] [address] | | | | | for Health and | [place], [place] | | | | | [place] [address] | [address] | | | | | [place], [place] | [phone] | | | | | [address] | | | | | | [phone] | | | +--------+ + + + [...]
--- OUTSIDE RECORDS SUMMARY | ~2020-02-29 | XMS | Encounter Summary ---
Demographics + + + | Address | [address] | | | [place] [address] | + + + | Home Phone [...] + +------+ + | Care Provider Relations Consultant Name | Role | Phone | [...] + + | 12/04/ | Telephone | [facility] | Alanis, | Medication Orders | | 2019 | | MEDICINE [address] | MD [place] | | | | | [place], | [address] [place] | | | | | [place] [address] | [place] [address] | | | | | [phone] | [phone] | | | | | | | [...] the nu rse. Please call patient at [phone].Electronically signed by Adriana Cantor at 11/14 8:17 AM PDTTelephone Encounter - Adriana Cantor - 12/05/2019 6:42 AM PDTPatient called asking to speak with the nurse. She stated her Loperamide was called in incorrectly and needs to be called in as 4 capsules in the morning and 2 in the evening and not just 2 in the daytime. Please call patient at [phone]. documented in this encounter Plan of Treatment +--------+---------+ + + + | Date | Type | Specialty | Care Team | Description | +--------+---------+ + + + | 05/17/ | Office | Internal Medicine | Alanis, | | | 2019 | Visit | | MD [place] | | | | | | Karla KAY | | | | | | [place] [address] | | | | | | [phone] | | | | | | | | +--------+---------+ + + + documented as of this encounter Visit Diagnoses Not on filedocumented in this encounter"
--- OUTSIDE RECORDS SUMMARY | ~2020-02-29 | XMS | Encounter Summary ---
Demographics + + + | Address | [address] | | | [place] [address] | + + + | Home Phone [...] Team Providers + +------+ + | Care Machined Parts Quality Inspector Name | Role | Phone [...] | | | | Clinical Nutrition | [place], [place] | | | | | [address] | [address] | | | | | Loop Mailcode: OPC5 | [phone] | | | | | Outpatient Clinic | | | | | | [facility], | | | | | | [place] [address] | | | | | | [phone] | | | +--------+ + + + [...]
--- OUTSIDE RECORDS SUMMARY | ~2020-02-29 | XMS | Encounter Summary ---
Demographics + + + | Address | [address] | | | [place] [address] | + + + | Home Phone [...] Medication Refill | | 2016 | | [facility] [address] | MD [place] | | | | | [place], | [address] [place] | | | | | [place] [address] | [place] [address] | | | | | [phone] | [phone] | | | | | | | [...] - 05/18/2017 4:11 PM PSTrx [facility] [place]. Patient notified 4: 13 PM PSTTelephone [...] | | | | | [place] [address] | | | | | | [phone] | | | | | | | | +--------+---------+ + + + documented as of this encounter Visit Diagnoses Not on filedocumented in this encounter"
--- OUTSIDE RECORDS SUMMARY | ~2020-02-29 | XMS | Encounter Summary ---
Demographics + + + | Address | [address] | | | [place] [address] | + + + | Home Phone [...] Providers + +------+ + | Care Tanker Service Attendant Name | Role | Phone | + +------+ + PCP | Unavailable | + +------+ + Encounter Details +--------+ + + + + | Date | Type | Department | Care Team | Description | +--------+ + + + + | 09/14/ | Hospital | [facility] | Ruben Tobias | | | 2001 | Encounter | MED CTR SLEEP | MD Raji [address] | | | | | [place] [address] | [address] [place] | | | | | [place], [place] | [place] [address] | | | | | [address] | [phone] | | | | | [phone] | | | +--------+ + + + [...] | | | | | [place] [address] | | | | | | [phone] | | | | | | | | +--------+---------+ + + + documented as of this encounter Visit Diagnoses Not on filedocumented in this encounter"
--- OUTSIDE RECORDS SUMMARY | ~2020-02-29 | XMS | Encounter Summary ---
Demographics + + + | Address | [address] | | | [place] [address] | + + + | Home Phone [...] Providers + +------+ + | Care District Operations Manager Name | Role | Phone [...] this encounter Progress Notes Interface, Head Of Conservation In - 01/12/2005 9:01 AM PDT [id number] [facility] Date: 05/20/2004 Clinic: Morbid [...] Surgery Chris Padgett M.D. MS / HS [id number] / [id number] / [id number] / [id number] documented i n this encounter Plan of Treatment Not on filedocumented as of this encounter Visit Diagnoses Not on filedocumented in this encounter"
--- OUTSIDE RECORDS SUMMARY | ~2020-02-29 | XMS | Encounter Summary ---
Demographics + + + | Address | [address] | | | [place] [address] | + + + | Home Phone [...] Providers + +------+ + | Care Engineering Team Supervisor Name | Role | Phone | [...] | | | | | | Floor [place], [place] | | | | | | [address] | | | | | | [phone] | | | +--------+ + + + [...]
--- OUTSIDE RECORDS SUMMARY | ~2020-02-29 | XMS | Encounter Summary ---
Demographics + + + | Address | [address] | | | [place] [address] | + + + | Home Phone [...] | [facility] | | | and [...] Team Providers + +------+ + | Care Drivematic Machine Operator Name | Role | Phone [...] Medication Refill | | 2018 | | [facility] [address] | MD [place] | | | | | [place], | [address] [place] | | | | | [place] [address] | [place] [address] | | | | | [phone] | | | | | | | [...] | | | | | [place] [address] | | | | | | [phone] | | | | | | | | +--------+---------+ + + + documented as of this encounter Visit Diagnoses Not on filedocumented in this encounter"
--- OUTSIDE RECORDS SUMMARY | ~2020-02-29 | XMS | Encounter Summary ---
Demographics + + + | Address | [address] | | | [place] [address] | + + + | Home Phone [...] Providers + +------+ + | Care Food Prep Worker Name | Role | Phone | [...] | | | [address] [facility] | [place]ma Boyd | | | | | [address] | [facility] [place] [address] | | | | | [address] | | | | | | [phone] | | | +--------+ + + + [...] | | | | | [place] [address] | | | | | | [phone] | | | | | | | | +--------+---------+ + + + documented as of this encounter Visit Diagnoses Not on filedocumented in this encounter"
--- OUTSIDE RECORDS SUMMARY | ~2020-02-29 | XMS | Encounter Summary ---
Demographics + + + | Address | [address] | | | [place] [address] [...] | | | 2006 | Registratio | [facility] Naeem Mcrae | [address] [facility] | | | | [address] | [address] Mailcode: [id number] | [place], [place] | | | | | [place], [place] | [address] | | | | | [address] | [phone] | | | | | [phone] | | | +--------+ + + + [...]
--- OUTSIDE RECORDS SUMMARY | ~2020-02-29 | XMS | Encounter Summary ---
[...] Team Providers + +------+ + | Care Telescope Operator Name | Role | Phone | [...] + + | 05/18/ | Telephone | [facility] | Alanis, | Referral | | 2017 | | MEDICINE [address] | MD [place] | | | | | [place], | [address] [facility] | | | | | [place] [address] | [place] [address] | | | | | [phone] | [phone] | | | | | | | [...] PSTPatient notified that ref erral resubmitted to [facility] in [place], [place]. Patient will call to schedule appt in the next few days P STTelephone Encounter - Adriana Cantor - 05/18/2018 1:44 PM PSTPatient called wanting t o speak with the nurse. Patient stated a referral was placed for her for an MRI but she was calling to see if it had been switched so she could have it done in [place]. Please call patient to advise, . documented [...] | | | | | [place] [address] | | | | | | [phone] | | | | | | | | +--------+---------+ + + + documented as of this encounter Visit Diagnoses Not on filedocumented in this encounter"
--- OUTSIDE RECORDS SUMMARY | ~2020-02-29 | XMS | Encounter Summary ---
Demographics + + + | Address | [address] | | | [place] [address] | + + + | Home Phone [...] Providers + +------+ + | Care Tugboat Engineer Name | Role | Phone | [...] [place] | | | | | [place] [address] | [place] [address] | | | | | [phone] | [phone] | | | | | | | [...] | | | | | [place] [address] | | | | | | [phone] | | | | | | | | +--------+---------+ + + + documented as of this encounter Visit Diagnoses Not on filedocumented in this encounter"
--- OUTSIDE RECORDS SUMMARY | ~2020-02-29 | XMS | Encounter Summary ---
Demographics + + + | Address | [address] | | | [place] [address] | + + + | Home Phone [...] Team Providers + +------+ + | Care Telephoner Name | Role | Phone | + [...] + + | 08/24/ | Telephone | [facility] | Alanis, | Toe Pain | | 2018 | | MEDICINE [address] | MD Petrona | | | | | [place], | [address] [facility] | | | | | [place] [address] | [place] [address] | | | | | [phone] | [phone] | | | | | | | [...] PDTPatient notified of x-ray order faxed to [facility] elephone Encounter - Petrona Thapa MD - [...] to be ordered an d sent to [facility] advise. documented in this encounter Plan of Treatment +--------+---------+ + + + | Date | Type | Specialty | Care Team | Description | +--------+---------+ + + + | 05/17/ | Office | Internal Medicine | Alanis, | | | 2019 | Visit | | MD Petrona | | | | | | [address] [facility] | | | | | | [place] [address] | | | | | | [phone] | | | | | | | [...]
--- OUTSIDE RECORDS SUMMARY | ~2020-02-29 | XMS | Encounter Summary ---
Demographics + + + | Address | [address] | | | [place] [address] | + + + | Home Phone [...] Providers + +------+ + | Care Service Liaison Representative Name | Role | Phone | [...] of this encounter Progress Notes Interface, Multi Disciplined Language Analyst In - 10/30/2005 2:06 AM PDT [id number] GEOVANNI SKELTON Molly [id number] Clinic Date: 10/23/2005 Clinic: Ms. Meehan comes in today for followup of her abdominal CT. The CT is normal. We will follow her for abdominal pain. I will see her again in 3 months. If she has exacerbation, she can come earlier. I also gave her 30 tablets of 5 mg oxycodone for the pain. Chris Padgett M.D. CD / HS [id number] / [id number] / [id number] / Electronically signed by Chris Padgett 10-29-2005 10:10:39 AM documented i n this encounter Plan of Treatment Not on filedocumented as of this encounter Visit Diagnoses Not on filedocumented in this encounter"
--- OUTSIDE RECORDS SUMMARY | ~2020-02-29 | XMS | Encounter Summary ---
Demographics + + + | Address | [address] | | | [place] [address] | + + + | Home Phone [...] + +------+ + | Care Screw Machine Setter Name | Role | Phone [...] | | | | | [facility] | | | | | | [address] | | | | | | [facility] | | | | | | and Healing, | | | | | | Building | | | | | | Floor [place], [place] | | | | | | [address] | | | | | | [phone] | | | +--------+ + + + [...] this encounter Miscellaneous Notes Telephone Encounter - Miranad Lambert - 09/16/2006 4:31 PM PDTI called [...]
--- OUTSIDE RECORDS SUMMARY | ~2020-02-29 | XMS | Encounter Summary ---
Demographics + + + | Address | [address] | | | [place] [address] | + + + | Home Phone [...] Providers + +------+ + | Care Rn Orthopaedic Name | Role | Phone | + [...] [facility] | Alanis, | Paperwork | | 2016 | | MEDICINE [address] [place] [address] | MD Petrona | | | | | [place], | [address] [facility] | | | | | [place] [address] | [place] [address] | | | | | [phone] | [phone] | | | | | | | [...] explained the process for referrals in the [facility] system. She will wait a couple days and call the pain clinic or us to see where things are in the p rocess. She is anxious but accepting of the delays r/t insurance authorization. elephone Alan Ennis - 03/02/2017 10:00 AM PDTPatient calling on the status of refer ral. elephone Tuan Grimes - 03/02/2017 8:14 AM PDTContact/Caller: Belinda Contact Number: [phone] Provider/Nurse: Emmy Reason for Call: Pt calling in stating they [facility] [place] and were advised they did not receive [...] | | [facility] [address] | | | | | | [place] [address] | | | | | | [phone] | | | | | | | | +--------+---------+ + + + documented as of this encounter Visit Diagnoses Not on filedocumented in this encounter"
--- OUTSIDE RECORDS SUMMARY | ~2020-02-29 | XMS | Encounter Summary ---
Demographics + + + | Address | [address] | | | [place] [address] | + + + | Home Phone [...] + +------+ + | Care Director Of Materials Management Name | Role | Phone | [...] | | | | CONSULT TO | [place], [place] | Health and | | | | | NEUROLOGY | [address] | Healing, | | | | | | | Building [address], | | | | | | | 8th Floor | | | | | | | [place], [place] | | | | | | | [address] | | | | | | | Phone: | | | | | | | [phone] | | | | | | | Fax: | | | | | | | [phone] | +--------+--------+ + + + + Reason for Visit +--------+ + | Reason | Comments | +--------+ + | Pain | back, legs, headache | +--------+ + Encounter Details +--------+---------+ + + + | Date | Type | Department | Care Team | Description | +--------+---------+ + + + | 08/12/ | Office | [facility] Comprehensive | Delfina Molina, | Migraine Headache | | 2006 | Visit | Pain Center at | ANP | (Primary Dx); | | | | [facility] | | 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
--- OUTSIDE RECORDS SUMMARY | ~2020-02-29 | XMS | Encounter Summary ---
Demographics + + + | Address | [address] | | | [place] [address] | + + + | Home Phone [...] Team Providers + +------+ + | Care Knuckle Bender Name | Role | Phone | [...] + | 06/26/ | Telephone | [facility] | Alanis, | ER Follow-up | | 2017 | | MEDICINE [address] | MD Petrona | | | | | [place], | [address] [facility] [place] | | | | | [place] [address] | [place] [address] | | | | | [phone] | [phone] | | | | | | | [...] 8:06 AM PSTContact/Gerardo blankenship: Belinda Contact Number: [phone] Provider/Nurse: Emmy Reason for Call: Emergency room [...] | | | | | [place] [address] | | | | | | [phone] | | | | | | | | +--------+---------+ + + + documented as of this encounter Visit Diagnoses Not on filedocumented in this encounter"
--- OUTSIDE RECORDS SUMMARY | ~2020-02-29 | XMS | Encounter Summary ---
Demographics + + + | Address | [address] | | | [place] [address] | + + + | Home Phone [...] Team Providers + +------+ + | Care Light Industrial Supervisor Name | Role | Phone | [...] Problem | | 2016 | | MEDICINE [address] [place] [address] | MD Petrona | | | | | [place], | [address] [facility] | | | | | [place] [address] | [place] [address] | | | | | [phone] | [phone] | | | | | | | [...] 11:03 AM PSTContac t/Caller: Belinda-self Contact Number: [phone] Provider/Nurse: Emmy Reason for Call: patient had [...] | | | | | [place] [address] | | | | | | [phone] | | | | | | | | +--------+---------+ + + + documented as of this encounter Visit Diagnoses Not on filedocumented in this encounter"
--- OUTSIDE RECORDS SUMMARY | ~2020-02-29 | XMS | Clinical Summary ---
Demographics + + + | Address | [address] | | | [place] [address] | + + + | Home Phone [...] + +------+ + | Care Instructor Of Nursing Name | Role | Phone | + +------+ + | Sulaiman Carrera MD | PCP | | + +------+ + Source Comments MARK is fully live on both [facility] Ambulatory and [facility] InPatient.[facility] Allergies + + + + [...] + + + + + + | Omqlzdm-Rwsixwlnfh-G | | | 08/29/19 | Balance problems [...] in | | | | | | [facility]) | | | | | | [...] | imbalances, sleep apnea, neck pain, medication [id number] | + + + + + | [...] + +--------+ | MEDICARE | MEDICA | [id number] | 07/16/19 | [phone] | [address] | Medica | | | RE A & | | 03-Pre | 1 | [address] | [address] | | | B | | sent | | [place] | | | | | | | | [address] | | + +--------+ +--------+ + +--------+ | SLITTING MACHINE FEEDER MEDICAID | SLITTING MACHINE FEEDER | [id number] | | | | Medica | | [...] | 1959 | [id number] | [place] [address] | | | bijan | | | 3 (Home) | | + +--------+ +--------+ + + | Belinda Meehan | Medica | Self | [birth year] | [address] | | | re | | 1959 | [id number] | [place] [address] | | | Recurr | | | 3 (Home) | | | | ing | | | | | + +--------+ +--------+ + + Advance Directives + + + + + | Type | Date Recorded | Patient | Explanation | | | | Precast Molder | | + + + + + | Advance | 11/19/2004 12:00 | | ADVANCE DIRECTIVE | | Directives and | AM | | | | Living Will | | | | + + + + + | Power of | | | | | Can Runner | | | | + + + [...]
--- OUTSIDE RECORDS SUMMARY | ~2020-02-29 | XMS | Encounter Summary ---
Demographics + + + | Address | [address] | | | [place] [address] | + + + | Home Phone [...] Providers + +------+ + | Care Web Site Specialist Name | Role | Phone | [...] + + | 04/02/ | Refill | [facility] | Alanis, | Medication Refill | | 2019 | | MEDICINE [address] | MD Petrona | | | | | [place], | [address] [facility] | | | | | [place] [address] | [place] [address] | | | | | [phone] | [phone] | | | | | | | [...] | | | | | [place] [address] | | | | | | [phone] | | | | | | | | +--------+---------+ + + + documented as of this encounter Visit Diagnoses Not on filedocumented in this encounter"
--- OUTSIDE RECORDS SUMMARY | ~2020-02-29 | XMS | Encounter Summary ---
Demographics + + + | Address | [address] | | | [place] [address] | + + + | Home Phone [...] Providers + +------+ + | Care Irrigation Flume Layer Name | Role | Phone | [...] | | 2017 | | [facility] [address] | MD Petrona | | | | | [place], | [address] [place] | | | | | [place] [address] | [place] [address] | | | | | [phone] | [phone] | | | | | | | [...] | | | | | [place] [address] | | | | | | [phone] | | | | | | | | +--------+---------+ + + + documented as of this encounter Visit Diagnoses Not on filedocumented in this encounter"
--- OUTSIDE RECORDS SUMMARY | ~2020-02-29 | XMS | Encounter Summary ---
Demographics + + + | Address | [address] | | | [place] [address] | + + + | Home Phone [...] Providers + +------+ + | Care Equipment Installer Name | Role | Phone [...] | Pain | Diagnoses | Miracle, | [place], | | | | Management | LBP (low | NIHARIKA Jean | Lukasz Rhodes, PhD | | | | | back pain) | [address] | [address] | | | | | DJD | [address] | Ave | | | | | (degenerativ | [place], [place] | [place] | | | | | e joint | [address] | [address] | | | | | disease) of | | Phone: | | | | | knee Knee | | [phone] | | | | | pain Major | | Fax: | | | | | depressive | | [phone] | | | | | disorder, | [...] 06/21/ | Office | [facility] | Lukasz Charles, | Major Depressive | | 2008 | Visit | [address] | PhD [address] | Disorder, Recurrent | | | | [facility] | [place], [place] | Episode, Mild (HCC); | | | | and Healing, | [address] | LBP (Low Back | | | | | [phone] | Pain); Migraine | | | | Floor [place], [place] | | Headache | | | | [address] | | | | | | [phone] | | | +--------+---------+ + + + [...] benefit as she becomes more active. Diagnosis: [place] I: 1. (296.31) Major depressive disorder, recurrent, mild. 2. (309.24) Adjustment disorder with anxiety. 3. (307.89) Chronic pain disorder associated with both psychological factors and a gene ral medical condition. [place] II: Deferred [place] III: abdominal pain, migraine headache, low back pain. [place] IV: low finances [place] V: GAF 55-60 Plan: return with next medical follow-up appointment. Check mood, pain, surgical recovery , relaxation, activity, distraction, eating. Ask about headache specialist, physical therap y. Continue cognitive/behavioral therapy. Total time spent with patient was approximately 45 minutes. LUKASZ CHARLES PHD [facility] [address] [facility], 4th [place] [address] documented in this en counter Miscellaneous Notes [...] Depressive | Ordered: 06/21/2008 | | OFFICE (95-50) | | e | Disorder, Recurrent | [...]
--- OUTSIDE RECORDS SUMMARY | ~2020-02-29 | XMS | Encounter Summary ---
Demographics + + + | Address | [address] | | | [place] [address] | + + + | Home Phone [...] Providers + +------+ + | Care Flight Inspector Name | Role | Phone | [...] + + | 06/03/ | Telephone | [facility] | Alanis, | Referral | | 2016 | | MEDICINE [address] | MD Petrona | | | | | [place], | [address] [facility] | | | | | [place] [address] | [place] [address] | | | | | [phone] | [phone] | | | | | | | [...] encounter with the pain clinic in the [place], [place] States that th e new medication [...] 3:53 PM PSTContact/Gerardo blankenship: Belinda Contact Number: [phone] Provider/Nurse: Emmy Reason for Call: Referral Last [...] | | | | | | [address] [place] [address] [place] | | | | | | [place] [address] | | | | | | [phone] | | | | | | | | +--------+---------+ + + + documented as of this encounter Visit Diagnoses Not on filedocumented in this encounter
--- OUTSIDE RECORDS SUMMARY | ~2020-02-29 | XMS | Encounter Summary ---
Demographics + + + | Address | [address] | | | [place] [address] | + + + | Home Phone [...] Providers + +------+ + | Care Embossing Machine Tender Name | Role | Phone [...] | | Procedures | [place], | [address] Phone: | | | | | OFFICE VISIT | [place] | [phone] | | | | | REGULAR | [address] | Fax: | | | | | | Phone: | [phone] | | | | | | [phone] | | | | | | | Fax: | | | | | | | [phone] | | +--------+--------+ + + + + Encounter Details +--------+---------+ + + + | Date | Type | Department | Care Team | Description | +--------+---------+ + + + | 10/18/ | Office | [facility] | Elisabet Munson MS | Encounter for | | 2014 | Visit | AUDIOLOGY AND | [facility] [address] | hearing evaluation | | | | [facility] | [address] [place] | (Primary Dx) | | | | [address] | [place] [address] | | | | | [address] [facility] | [phone] | | | | | [place] [address] | | | | | | [phone] | | | +--------+---------+ + + + [...] - 10/18/2014 2:54 PM PDTReferring Provider: Petrona snigh M.D. Results of Hearing Test: Right ear--Pure [...] | | | | | | [address] [place] [address] [place] | | | | | | [place] [address] | | | | | | [phone] | | | | | | | [...]
--- OUTSIDE RECORDS SUMMARY | ~2020-02-29 | XMS | Encounter Summary ---
Demographics + + + | Address | [address] | | | [place] [address] | + + + | Home Phone [...] Team Providers + +------+ + | Care Knitter Helper Name | Role | Phone | [...] + + | 05/18/ | Refill | [facility] | Alanis, | Medication Refill | | 2016 | | MEDICINE [address] | MD Petrona | | | | | [place], | [address] [facility] | | | | | [place] [address] | [place] [address] | | | | | [phone] | | | | | | | [...] | | | | | [place] [address] | | | | | | [phone] | | | | | | | | +--------+---------+ + + + documented as of this encounter Visit Diagnoses Not on filedocumented in this encounter"
--- OUTSIDE RECORDS SUMMARY | ~2020-02-29 | XMS | Encounter Summary ---
Demographics + + + | Address | [address] | | | [place] [address] | + + + | Home Phone [...] Providers + +------+ + | Care Mechanical Artist Name | Role | Phone | [...] + + | 08/14/ | Telephone | [facility] | Alanis, | Lab Order | | 2017 | | MEDICINE [address] | MD Petrona | | | | | [place], | [address] [facility] | | | | | [place] [address] | [place] [address] | | | | | [phone] | [phone] | | | | | | | [...] order faxed to [facility] in [place]. Left message on patient's voicemail elephone Encounter [...] it to be ordered for [facility] in [place] so she can go ahead and get it drawn so it can be ready and back in time for her upcoming surgery. Please call patient to advise, [phone]. Kim jacobsen his encounter Plan of Treatment +--------+---------+ + + + | Date | Type | Specialty | Care Team | Description | +--------+---------+ + + + | 05/17/ | Office | Internal Medicine | Alanis, | | | 2019 | Visit | | MD Petrona | | | | | | [address] [place] [address] | | | | | | [place] [address] | | | | | | [phone] | | | | | | | | +--------+---------+ + + + documented as of this encounter Visit Diagnoses + + | Diagnosis | + + | Preop examination - Primary Preoperative examination, unspecified | + + documented in this encounter"
--- OUTSIDE RECORDS SUMMARY | ~2020-02-29 | XMS | Encounter Summary ---
Demographics + + + | Address | [address] | | | [place] [address] | + + + | Home Phone [...] Team Providers + +------+ + | Care Antisubmarine Weapons Officer Name | Role | Phone | [...] [address] | | | | | | [place], [place] | | | | | | [address] | | | | | | [phone] | | | +--------+--------+ + + + [...] closed with the authorization of the [facility] Committee. documented in this encount er Plan of Treatment Not on filedocumented as of this encounter Visit Diagnoses Not on filedocumented in this encounter"
--- OUTSIDE RECORDS SUMMARY | ~2020-02-29 | XMS | Encounter Summary ---
Demographics + + + | Address | [address] | | | [place] [address] | + + + | Home Phone [...] Phone | + + +---------+ + | Adrinaa Caregiver | ECON | Unknown | | | Rudy | | | | + + +---------+ + | Sree Wells | ECON | Unknown | | + + +---------+ + | Marco Antonio Wells | ECON | Unknown | | + + +---------+ + Care Team Providers + +------+ + | Care Associate Professor Of Forestry Name | Role | Phone | + [...] + | 04/15/ | Telephone | [facility] | Alanis, | Other (Pain clinic) | | 2018 | | [facility] [address] | MD Petrona | | | | | [place], | [address] [facility] [place] | | | | | [place] [address] | [place] [address] | | | | | [phone] | [phone] | | | | | | | [...] the pain clinic. Please call her at [phone]. documented in this encounter Plan of Treatment +--------+---------+ + + + | Date | Type | Specialty | Care Team | Description | +--------+---------+ + + + | 05/17/ | Office | Internal Medicine | Alanis, | | | 2019 | Visit | | MD Petrona | | | | | | [address] | | | | | | [place] [address] | | | | | | [phone] | | | | | | | | +--------+---------+ + + + documented as of this encounter Visit Diagnoses Not on filedocumented in this encounter"
--- OUTSIDE RECORDS SUMMARY | ~2020-02-29 | XMS | Encounter Summary ---
Demographics + + + | Address | [address] | | | [place] [address] | + + + | Home Phone [...] Providers + +------+ + | Care Spring Bender Name | Role | Phone | [...] + + | 03/29/ | Telephone | [facility] | Alanis, | Medication Prior | | 2017 | | MEDICINE [address] | MD Petrona | Authorization | | | | [place], | [address] | (Gabapentin ) | | | | [place] [address] | [place] [address] | | | | | [phone] | | | | | | | [...] prior auth request aren glover Gabapentin from [facility]. Script from pharmacy for requested 360 capsules was dated 2017. Medication has since been updated in January for 270 capsules that don't require author ization. Sent message to nurse asking to call pharmacy and give verbal over the phone with u pdated prescription. Please see referral#[id number] on details. Closed encounter today. Electro nically [...] | | | | | [place] [address] | | | | | | [phone] | | | | | | | | +--------+---------+ + + + documented as of this encounter Visit Diagnoses Not on filedocumented in this encounter"
--- OUTSIDE RECORDS SUMMARY | ~2020-02-29 | XMS | Encounter Summary ---
Demographics + + + | Address | [address] | | | [place] [address] | + + + | Home Phone [...] Providers + +------+ + | Care Type Proof Reproducer Name | Role | Phone | + +------+ + | Petrona Thapa | PCP | | | MD | | | + +------+ + Encounter Details +--------+ + + + + | Date | Type | Department | Care Team | Description | +--------+ + + + + | 12/04/ | Orders Only | [facility] | Alanis, | | | 2019 | | MEDICINE [address] | MD [address] | | | | | [address] [place], | [address] [facility] | | | | | [place] [address] | [place] [address] | | | | | [phone] | [phone] | | | | | | | [...] | | | | | [place] [address] | | | | | | [phone] | | | | | | | | +--------+---------+ + + + documented as of this encounter Visit Diagnoses Not on filedocumented in this encounter"
--- OUTSIDE RECORDS SUMMARY | ~2020-02-29 | XMS | Encounter Summary ---
Demographics + + + | Address | [address] | | | [place] [address] | + + + | Home Phone [...] Team Providers + +------+ + | Care Airbrush Artist Technical Name | Role | Phone | [...] Sleep | Diagnoses | | [facility] [address] | | | Services | Medicine | Diarrhea, | Emmy-Tajt | Ksd Sleep | | | Required | | unspecified | i, | Disorder [address] | | | | | type | Petrona | [address] | | | | | | , MD [address] | [place], | | | | | [address] | [place] [address] | | | | | | [place], | Phone: | | | | | | [place] | [phone] | | | | | | [address] | Fax: | | | | | | Phone: | [phone] | | | | | | [phone] | | | | | | | Fax: | | | | | | | [phone] | | +--------+ + + + + [...] | (Primary Dx) | | | | [place] [address] | [place] [address] | | | | | [phone] | [phone] | | | | | | | [...] | | | | | [place] [address] | | | | | | [phone] | | | | | | | | +--------+---------+ + + + + + +--------+ + + | Name | Type | Priori | Associated Diagnoses | Order Schedule | | | | ty | | | + + +--------+ + + | * TAHIR GALE | Outpatient | Routin | Diarrhea, | [...]
--- OUTSIDE RECORDS SUMMARY | ~2020-02-29 | XMS | Encounter Summary ---
Demographics + + + | Address | [address] | | | [place] [address] | + + + | Home Phone [...] Providers + +------+ + | Care Machine Ii Cutter Name | Role | Phone | [...] [id number] | | | | | | [place], [place] | | | | | | [address] | | | | | | [phone] | | | +--------+--------+ + + + [...] istratively closed with the authorization of the [facility] Committee. documented in this encount er Plan of Treatment Not on filedocumented as of this encounter Visit Diagnoses Not on filedocumented in this encounter"
--- OUTSIDE RECORDS SUMMARY | ~2020-02-29 | XMS | Encounter Summary ---
Demographics + + + | Address | [address] | | | [place] [address] | + + + | Home Phone [...] Team Providers + +------+ + | Care Raveler Name | Role | Phone | + [...] + | 03/08/ | Telephone | [facility] | Emmy-Kamlesh, | Hospitalization | | 2017 | | MEDICINE [address] | MD [place]a | | | | | [place], | [address] [facility] [place] | | | | | [place] [address] | [place] [address] | | | | | [phone] | [phone] | | | | | | | [...] n emergent 13 hour surgery yesterday in [place] to remove bad adhesions around her intesti flor and is in a lot of pain but currently in the hospital. Patient would like a call back a t [phone]. elepho ne Encounter - Adriana Cantor - 03/08/2018 6:59 AM PDTPatient called asking to speak wi th the nurse. Patient wanted to let the office know she is in the hospital in [place] in the ICU as she had surgery [...] [facility] [address] | | | | | | [place] [address] | | | | | | [phone] | | | | | | | | +--------+---------+ + + + documented as of this encounter Visit Diagnoses Not on filedocumented in this encounter"
--- OUTSIDE RECORDS SUMMARY | ~2020-02-29 | XMS | Encounter Summary ---
Demographics + + + | Address | [address] | | | [place] [address] | + + + | Home Phone [...] Providers + +------+ + | Care Base Filler Name | Role | Phone | [...] as of this encounter Progress Notes Interface, Birth Attendant In - 06/06/2005 2:05 AM PST [id number] [facility] Date: 05/29/2005 Clinic: Bariatric [...] a day. She has had workups in [place] including CT and upper GI with small-bowel followthrough which have reportedly been negative. She has some recent changes in her medications including addition of a calcium channel colby and diclofenac. She says her symptoms gets worse every time she takes pain medicine. She is currently taking oxycodone. Her primary doctor in [place] is Dr. Gutierrez. Physical Examination: Vital Signs: [...] will try to arrange for her in [place], so she does not have to come out here. We will call Dr. Gutierrez to try to arrange for this and followup her within 3 months. The patient was seen with Dr. Padgett. Karen Cisneros M.D. Chris Padgett M.D. / [id number] / [id number] / [id number] / [id number] Electronically signed by Chris Padegtt 06-05-2005 05:29:09 PM documented i n this encounter Plan of Treatment Not on filedocumented as of this encounter Visit Diagnoses Not on filedocumented in this encounter"
--- OUTSIDE RECORDS SUMMARY | ~2020-02-29 | XMS | Encounter Summary ---
Demographics + + + | Address | [address] | | | [place] [address] | + + + | Home Phone [...] Providers + +------+ + | Care Academic Intern Name | Role | Phone | [...] Abdominal | | 2006 | Visit | [facility] | [address] | Pain; Cervical Pain; | | | | [place] [address] [place], | Pain in Joint, Site | | | | [address] [facility] | [place] [address] | Unspecified; | | | | Health and Healing, | | Depression | | | | Building | | | | | | Floor [place], [place] | | | | | | [address] | | | | | | [phone] | | | +--------+---------+ + + + [...] EVALUATION NOTE Date: 06/23/2006 Name: Belindavera Hyattdams [id number] y.o. female Start of Care: 06/23/2005 [...] the last few gregory hs. Handedness: right Crawley: [place], [place] Chief Complaint: Headaches and cervical pain, [...] HX SALPINGO-OOPHORECTOMY COLONOSCOPY Comment: 03/2006 HX TONSILLECTOMY ID D&C AFTER DELIVERY ID INJECT TRIGGER POINT, 1 OR 2 Medications: [...] 899 Nathalia Cantu, Physical Therapist, License number [id number] NATHALIA CANTU documented in this encoun ter Plan of Treatment + + +--------+ + + | Name | Type | Priori | Associated Diagnoses | Order Schedule | | | | ty | | | + + +--------+ + + | ID PHYS THERAPY | Procedures | Routin | [...]
--- OUTSIDE RECORDS SUMMARY | ~2020-02-29 | XMS | Encounter Summary ---
Demographics + + + | Address | [address] | | | [place] [address] | + + + | Home Phone [...] Providers + +------+ + | Care Metal Rolling Mill Operator Name | Role | Phone [...] + + | 02/07/ | Telephone | [facility] | Alanis, | César | | 2019 | | MEDICINE [address] | MD [place] | | | | | [place], | [address] [facility] | | | | | [place] [address] | [place] [address] | | | | | [phone] | [phone] | | | | | | | [...] that she has been seen at the [facility] to rule out blood clots. US of the right leg was negative and she reports that "labs were okay". Patient was wondering if Dr. Booth had a recommendation about treating her leg cramps. She also wanted Dr. Booth to know that she is seeing a excel specialist 2x/weekly fo r the burn on [...] | | | | | [place] [address] | | | | | | [phone] | | | | | | | | +--------+---------+ + + + documented as of this encounter Visit Diagnoses Not on filedocumented in this encounter
--- OUTSIDE RECORDS SUMMARY | ~2020-02-29 | XMS | Encounter Summary ---
Demographics + + + | Address | [address] | | | [place] [address] | + + + | Home Phone [...] + +------+ + | Care Sheet Metal Mechanic Name | Role | Phone | [...] as of this encounter Progress Notes Interface, Stock Worker And Deliverer In - 01/12/2005 8:09 AM PDTClinic Date: [...] months. Chris Padgett M.D. ROSA / SHARIF [id number] / [id number] / [id number] / Tdocumented in this encounter Plan of Treatment Not on filedocumented as of this encounter Visit Diagnoses Not on filedocumented in this encounter"
--- OUTSIDE RECORDS SUMMARY | ~2020-02-29 | XMS | Encounter Summary ---
Demographics + + + | Address | [address] | | | [place] [address] | + + + | Home Phone [...] Providers + +------+ + | Care In Store Marketing Associate Name | Role | Phone | [...] 2005 | | Bariatric [address] | [address] | Pain (Primary Dx) | | | | [address] | [address] | | | | | Mailcode: [id number] | [place], [place] | | | | | Physician's Sharmila | [address] | | | | | [address] [place], [place] | [phone] | | | | | [address] | | | | | | [phone] | | | +--------+ + + + [...] [facility] | [address] | [place], [place] | | | [facility] | | [address] | | + + + + + documented in this encounter Visit Diagnoses + + | Diagnosis | + + | Chronic abdominal pain - Primary Abdominal pain, unspecified site | + + documented in this encounter"
--- OUTSIDE RECORDS SUMMARY | ~2020-02-29 | XMS | Encounter Summary ---
Demographics + + + | Address | [address] | | | [place] [address] | + + + | Home Phone [...] Providers + +------+ + | Care Rn Manager Name | Role | Phone | [...] + + | 03/04/ | Telephone | [facility] | Alanis, | Referral; Medication | | 2016 | | MEDICINE [address] | MD [place] | Refill | | | | [place], | [address] | | | | | [place] [address] | [place] [address] | | | | | [phone] | [phone] | | | | | | | [...] her last visit. She is still requesting Zoe to he lp her pain. I told her I would send a message. elephone Encounter - Tuan Snider - 03/05/2017 3:[address]/Caller: [facility] Contact Number: [phone] Provider/Nurse: Emmy Reason for Call: Taniya calling in regarding pt stated they have received numerous calls fro m patient to schedule an appointment with them. Taniya is stating they have not received refe rral and if it could be sent to their main fax [phone]. Also Taniya wanted to add that they [...] | | | | | [address] [facility] [place] | | | | | | [place] [address] | | | | | | [phone] | | | | | | | | +--------+---------+ + + + documented as of this encounter Visit Diagnoses Not on filedocumented in this encounter"
--- OUTSIDE RECORDS SUMMARY | ~2020-02-29 | XMS | Encounter Summary ---
Demographics + + + | Address | [address] | | | [place] [address] | + + + | Home Phone [...] + + | 09/20/ | Telephone | [facility] | Miranda Lambert, | Medication Questions | | 2009 | | Pain Center at | ANP | | | | | [facility] | | | | | | [address] | | | | | | [facility] | | | | | | and [place], | | | | | | [facility] | | | | | | [place], [place] | | | | | | [address] | | | | | | [phone] | | | +--------+ + + + [...] encounter Miscellaneous Notes Telephone Encounter - Miranda Lambert, NIHARIKA - 09/20/2009 3:43 PM Max [...] initiate scheduling a follow up at the [facility] Evaluate situation myself. Dr. Gutierrez asking for [...] Psychiatry: he said there were none in [facility] and didn't thi nk there was any in [facility] either. elephone Encounter - Miranda Lambert ANP - 09/20/2009 2:26 PM PDTI called [phone] Irving green MD to address his medication questions. I spoke with Svetlana kaitara taraka who said he w as not available [...] was last see n by her at [facility] 3/16/2009 documented in this encounter Plan of Treatment Not on filedocumented as of this encounter Visit Diagnoses Not on filedocumented in this encounter
--- OUTSIDE RECORDS SUMMARY | ~2020-02-29 | XMS | Encounter Summary ---
Demographics + + + | Address | [address] | | | [place] [address] | + + + | Home Phone [...] Providers + +------+ + | Care Commercial Lines Assistant Name | Role | Phone | [...] | | | | [place], | [address] | | | | | | [place] | Phone: | | | | | | [address] | [phone] | | | | | | Phone: | Fax: | | | | | | [phone] | [phone] | | | | | | Fax: | | | | | | | [phone] | | +--------+ + + + + + Encounter Details +--------+---------+ + + + | Date | Type | Department | Care Team | Description | +--------+---------+ + + + | 11/16/ | Office | [facility] | Alanis, | Diarrhea, | | 2017 | Visit | GASTROENTEROLOGY | MD [place] | unspecified type | | | | [address] [facility] | [address] [facility] | (Primary Dx); | | | | [address] [place], [place] | [place] [address] | Chronic diarrhea; | | | | [address] | [phone] | S/P gastric bypass; | | | | [phone] | | Gastroesophageal | | | | | Luther Brito MD | reflux disease, | | | | | [address] | esophagitis presence | | | | | [place] | not specified; | | | | | [address] | History of gastric | | | | | [phone] | ulcer; Abdominal | | | | | | pain, unspecified | | | | | | abdominal location; | | | | | | Narcotic dependence | | | | | | ([facility]); Obesity (BMI | | | | | [...] e at [facility] in [place], orders were faxed; scheduled for egd/colon prop on 12/[address] Brito; advised to hold PPI day of procedure, she agreed. 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 documented in this encounter H&P Notes Luther [...] (See Comments) Confused and questionable for seizures Jouwfxmlej-Llip-Xmrfyytf Not Noted Cephalexin Hives Duloxetine Not Noted Migraines and nausea Ketorolac Hives Morphine Swelling Ropinirole Hcl Hives Tramadol Hcl Nausea Only Cjhjguzatj-Hshq-Ezewhtaf Hives,Rash Ciprofloxacin Hives,Rash Clarithromycin Hives,Rash Clindamycin Hcl [...] | [facility] [address] | | | | | | [place] [address] | | | | | | [phone] | | | | | | | [...]
--- OUTSIDE RECORDS SUMMARY | ~2020-02-29 | XMS | Encounter Summary ---
Demographics + + + | Address | [address] | | | [place] [address] | + + + | Home Phone [...] Providers + +------+ + | Care Admissions Clerk Name | Role | Phone | [...] + + | 09/25/ | Telephone | [facility] | Alanis, | Other | | 2017 | | MEDICINE [address] | MD [place] | | | | | [place], | [address] [facility] | | | | | [place] [address] | [place] [address] | | | | | [phone] | [phone] | | | | | | | [...] 10/02/2017 1:30 PM PDTPrinted rx mailed to [facility]. Patient notified INTe luciana Encounter - Malissa Redd - 09/25/2017 9:21 AM PDTPatient called and would like to know if she can get her CPAP supplies sent to [facility] in [facility]? Currently she is getting them through mail order and they have not been sending her t he correct order and she believes this is why she is not getting any sleep and the cause for her headaches. Please advise. [phone] signed by Malissa Redd at 09/25/2017 9:29 [...] | | | | | [place] [address] | | | | | | [phone] | | | | | | | | +--------+---------+ + + + documented as of this encounter Visit Diagnoses + + | Diagnosis | + + | OLIVER (obstructive sleep apnea) - Primary Obstructive sleep apnea (adult) (pediatric) | + + documented in this encounter"
--- OUTSIDE RECORDS SUMMARY | ~2020-02-29 | XMS | Encounter Summary ---
Demographics + + + | Address | [address] | | | [place] [address] | + + + | Home Phone [...] Providers + +------+ + | Care Buffing Turner And Counter Name | Role | Phone | [...] | | | | | Procedures | [place], [place] | [facility] | | | | | CONSULT TO | [address] | for Health | | | | | BONE | Phone: | and Healing, | | | | | DENSITOMETRY | [phone] | [address] | | | | | | Fax: | [place], [place] | | | | | | [phone] | [address] | | | | | | | Phone: | | | | | | | [phone] | | | | | | | Fax: | | | | | | | [phone] | +--------+ + + + + + [...] | | | [facility] | [place], [place] | Bypass for Obesity | | | | and Healing, | [address] | | | | | [facility] | [phone] | | | | | Floor [place], [place] | | | | | | [address] | | | | | | [phone] | | | +--------+---------+ + + + [...]
--- OUTSIDE RECORDS SUMMARY | ~2020-02-29 | XMS | Encounter Summary ---
Demographics + + + | Address | [address] | | | [place] [address] | + + + | Home Phone [...] Providers + +------+ + | Care Personnel Worker Name | Role | Phone | [...] [facility] | Alanis, | Appointment Question | | 2018 | | MEDICINE [address] | MD [place] | | | | | [place], | [address] | | | | | [place] [address] | [place] [address] | | | | | [phone] | [phone] | | | | | | | [...] 05/17/ | Office | Internal Medicine | Al[place], | | | 2019 | Visit | | MD [place] | | | | | | [address] | | | | | | [place] [address] | | | | | | [phone] | | | | | | | | +--------+---------+ + + + documented as of this encounter Visit Diagnoses Not on filedocumented in this encounter"
--- OUTSIDE RECORDS SUMMARY | ~2020-02-29 | XMS | Encounter Summary ---
Demographics + + + | Address | [address] | | | [place] [address] | + + + | Home Phone [...] Providers + +------+ + | Care Agricultural Scientist Name | Role | Phone | [...] Rd | | | | | | [place], [place] | | | | | | [address] | | | +--------+ + + + [...]
--- OUTSIDE RECORDS SUMMARY | ~2020-02-29 | XMS | Encounter Summary ---
Demographics + + + | Address | [address] | | | [place] [address] | + + + | Home Phone [...] Providers + +------+ + | Care Primer Waterproofing Machine Adjuster Name | Role | Phone [...] | | | | Mailcode: L[address]A | [place], [place] | | | | | [facility] | [address] | | | | | [address] [place], [place] | [phone] | | | | | [address] | | | | | | [phone] | | | +--------+ + + + [...] order UGI to evaluate symptoms. To call [facility] with results. See Dr. zachariah Padgett in [...] back. Pt can be reached at home [phone] thanks, larrye documente d in this encounter Plan of Treatment Not on filedocumented as of this encounter Visit Diagnoses Not on filedocumented in this encounter
--- OUTSIDE RECORDS SUMMARY | ~2020-02-29 | XMS | Encounter Summary ---
Demographics + + + | Address | [address] | | | [place] [address] | + + + | Home Phone [...] Providers + +------+ + | Care Fixer Boarding Room Name | Role | Phone | [...]
--- OUTSIDE RECORDS SUMMARY | ~2020-02-29 | XMS | Encounter Summary ---
Demographics + + + | Address | [address] | | | [place] [address] | + + + | Home Phone [...] | | | | unspecified | [place] [address] | [place], [place] | | | | | laterality | Phone: | [phone] | | | | | Dysfunction | [phone] | Phone: | | | | | of left | Fax: | [phone] | | | | | eustachian | [phone] | Fax: | | | | | tube | | [phone] | +--------+ + + + + + [...] [place] | unspecified | | | | [place], [place] | [address] | laterality (Primary | | | | [address] | | Dx); Dysfunction of | | | | [phone] | | left eustachian tube | +--------+ [...] | | | | | [place] [address] | | | | | | [phone] | | | | | | | [...]
--- OUTSIDE RECORDS SUMMARY | 2020-02-29 06:14 | XMS ---
PreManage Notification: NAFISA GALARZA Security Crystal Slicer Events No recent Security Events currently on file CRITERIA MET - Group Notification - 6 ED Visits in 6 Months - [facility] - Has Care Guidelines CARE PROVIDERS LLOYD, Internal Medicine Current [employer] PHONE: [phone] Tania Richards Chemical Machine Tender/Information Systems Administrator 08/13/2016-Current PHONE: [phone] Daniella has no Care Guidelines for this patient. Care History Medical/Surgical 12/14/2018 [facility] HISTORY:\T\nbsp; SPINE SURGERY - PAIN MEDICATIONS [facility]ROUGH [facility], [place] ([phone]) HX: MENIERE\T\#39; S SYNDROME (HAS RX FOR MECLIZINE THROUGH PCP DR CLEMENCIA [place]); MIGRAINES;OSTEOARTHRITIS;SCOLIOSIS;DUMPING SYNDROME;IBS CHRONIC PAIN. 11/10/2018 [facility] - [facility] CONTACTED PATIENT. PATIENT HAS A PCP APT WITH PCP OFFICE ON 11/15/18 FOR ER FOLLOW UP. Mona VISIT COUNT (12 MO.) 7 DAVID Martin TOTAL 7 NOTE: Visits indicate total known visits. ED/UCC VISIT TRACKING (12 MO.) 02/29/2020 06:12 [facility] [place] TYPE: Emergency COMPLAINT: - NECK PAIN NON INJURY 01/25/2020 16:14 [facility] [place] TYPE: Emergency COMPLAINT: - L SIDE CHEST SORE DIAGNOSES: - Disorder of the skin and subcutaneous tissue, unspecified 12/13/2019 19:11 [facility] [place] TYPE: Emergency COMPLAINT: - NAUSEA, HEADACHE DIAGNOSES: - Personal history of nicotine dependence - Allergy status to penicillin - Other terminal superintendent (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 - Allergy status to sulfonamides status - Migraine, unspecified, not intractable, without status migrai - Allergy status to narcotic agent status - Allergy status to other antibiotic agents status - Allergy status to other drugs, medicaments and biological sub 11/17/2019 21:04 [facility] [place] TYPE: Emergency COMPLAINT: - LEFT ANKLE PAIN DIAGNOSES: - Other terminal superintendent (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 - Personal history of [...] status to analgesic agent status - Other correction (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 - Vomiting, unspecified - [...] status to narcotic agent status - Other terminal superintendent (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 - Allergy status to sulfonamides status - Cellulitis of left lower limb - Allergy status to other antibiotic agents status - Migraine, unspecified, not intractable, without status migrai 06/25/2019 21:38 [facility] [place] TYPE: Emergency COMPLAINT: - RIGHT SHOULD/ARM PAIN DIAGNOSES: - Allergy status to sulfonamides status - Other terminal superintendent (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 - Allergy status to [...] visits to display in this time frame [id number]
== END 2020-02-29 06:54 | disposition home or self-care (01) ==
LOC: ED 06:12
DX: G89.29 Other chronic pain (principal); M54.2 Cervicalgia; Z86.73 Personal history of transient ischemic attack (TIA), and cerebral infarction without residual deficits; Z87.891 Personal history of nicotine dependence; Z88.1 Allergy status to other antibiotic agents; Z88.5 Allergy status to narcotic agent; Z88.0 Allergy status to penicillin; Z88.2 Allergy status to sulfonamides; Z88.8 Allergy status to other drugs, medicaments and biological substances; Z79.899 Other long term (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
CPT/HCPCS: 99283

== ENCOUNTER 2020-02-29 18:28 | Emergency (ER) | payer MEDICARE, OTHER ==
[~2020-02-29] VITALS: Ht 167.6 cm; Wt 90.7 kg
--- OUTSIDE RECORDS SUMMARY | ~2020-02-29 | XMS | Encounter Summary ---
Demographics + + + | Address | [address] | | | [place] [address] | + + + | Home Phone | | + + + | Preferred Language | Unknown | + + + | Marital Status | | + + + | Pentecostalism Affiliation | 1001 | + + + | Race | White | + + + | Ethnic Group | Not or | + + + Author + + + | Author | [facility] | | | and [place] | + + + | Organization | [facility] | | | [...] Team Providers + +------+ + | Care Brazing Furnace Operator Name | Role | Phone | + +------+ + | Petrona Thapa | PCP | | | MD | | | + +------+ + Reason for Visit +--------+--------+ + | Reason | Onset | Comments | | | Date | | +--------+--------+ + | Other | 02/13/ | letter request | | | 2019 | | +--------+--------+ + Encounter Details +--------+ + + + + | Date | Type | Department | Care Team | Description | +--------+ + + + + | 02/13/ | Telephone | [facility] | Ulysses Genao MD | Other (letter | | 2019 | | OTOLARYNGOLOGY | [address] [place] | request) | | | | SERVICES [address] | [address] | | | | | [address] [place] | [address] | | | | | [place] [address] | | | | | | [phone] | | | +--------+ + + + [...] + + documented as of this encounter Miscellaneous Notes Telephone Encounter - Adalgisa Lizarraga, Director Bioinformatics - 02/15/2020 2:54 PM PDTPatien t was notified that letter was faxed to [phone]. She noted understanding and thanked Dr Yudy Genao. P M PDTTelephone Encounter - Adalgisa Lizarraga Director Bioinformatics - 02/15/2020 11:39 AM PDTLe tter created and given to Dr. Genao to sign. elephone Encounter - Ulysses Genao MD - 0 10:55 AM PDTPlease write a letter stating that patient was seen by audiology and also by m yself on December 20 and I will sign the letter to return it to the patient. elephone Encounter - Adalgisa Lizarraga Med ical Electronic Service Technician - 02/15/2020 10:13 AM PDTPatient is requesting a letter to be reimbursed for transportation for her appointment on December 18. Please advise. elephone Encounter - Naveen Hathaway - 02/14/2020 11:09 AM PDTPatient called to speak with Dr Genao's clinical staff stating "he needs to send in a letter or something saying that she was here to [facility] transportation . They are going to reimburse her for her mileage". Patient was seen in clinic by Elisabet and Dr Genao on December 20. The letter needs to address the appointment for both the providers. e fax number for [facility] is [phone]. Please advise, patient can be reached at [phone]. documented in this encou nter Plan of Treatment +--------+---------+ + + + | Date | Type | Specialty | Care Team | Description | +--------+---------+ + + + | 05/17/ | Office | Internal Medicine | Alanis, | | | 2019 | Visit | | MD Petrona | | | | | | [facility] [address] | | | | | | [place] [address] | | | | | | [phone] | | | | | | | | +--------+---------+ + + + documented as of this encounter Visit Diagnoses Not on filedocumented in this encounter
--- OUTSIDE RECORDS SUMMARY | ~2020-02-29 | XMS | Encounter Summary ---
Demographics + + + | Address | [address] | | | [place] [address] | + + + | Home Phone | | + + + | Preferred Language | Unknown | + + + | Marital Status | Single | + + + | Yarsani Affiliation | ADV | + + + | Race | White | + + + | Ethnic Group | Not or | + + + Author + + + | Author | [facility] | + + + | Organization | [facility] | + + + | Address [...] Team Providers + +------+ + | Care Splitting Machine Operator Helper Name | Role | Phone | + +------+ + | Pedrito Gutierrez MD | PCP | | + +------+ + Reason for Visit + + + | Reason | Comments | + + + | Refill Request | Sucralfate | + + + Encounter Details +--------+--------+ + + + | Date | Type | Department | Care Team | Description | +--------+--------+ + + + | 11/10/ | Refill | [facility] | Chris Padgett, | Refill Request | | 2008 | | [place] [address] | [address] | (Sucralfate) | | | | Bethanie Mailcode: CH4S | [facility] | | | | | [facility] | [place], [place] | | | | | and [place], | [address] | | | | | [facility] | [phone] | | | | | Floor [place], [place] | | | | | | [address] | | | | | | [phone] | | | +--------+--------+ + + + [...] this encounter Miscellaneous Notes Telephone Encounter - Kenisha Melton ACNP - 11/17/2008 9:01 AM PDTDone, she has one mo re refill. vicki elephone Encounter - Kenisha Melton ACNP - 11/17/2008 8:58 AM PDTHi, she has 3 refills. ... Should not need another script?Electronically signed by ANAYA Thorne at 2008 8:58 AM PDTTelephone Encounter - Tiesha Sarmiento - 11/10/2008 11:11 AM PDTFax received . Last filled 10/12/08 documented in this encoun ter Plan of Treatment Not on filedocumented as of this encounter Visit Diagnoses Not on filedocumented in this encounter"
--- OUTSIDE RECORDS SUMMARY | ~2020-02-29 | XMS | Encounter Summary ---
Demographics + + + | Address | [address] | | | [place] [address] | + + + | Home Phone | | + + + | Preferred Language | Unknown | + + + | Marital Status | | + + + | Protestant Affiliation | 1001 | + + + | Race | White | + + + | Ethnic Group | Not or | + + + Author + + + | Author | [facility] | | | and [place] | + + + | Organization | [facility] | | | [...] Team Providers + +------+ + | Care City Library Director Name | Role | Phone | + +------+ + | Petrona Thapa | PCP | | | MD | | | + +------+ + Reason for Visit + +--------+ + | Reason | Onset | Comments | | | Date | | + +--------+ + | Lab Results | 03/02/ | | | | 2017 | | + +--------+ + Encounter Details +--------+ + + + + | Date | Type | Department | Care Team | Description | +--------+ + + + + | 03/02/ | Telephone | [facility] | Alanis, | Lab Results | | 2017 | | MEDICINE [address] | MD [place]rona | | | | | [place], | [address] [facility] | | | | | [place] [address] | [place] [address] | | | | | [phone] | [phone] | | | | | | | [...] this encounter Miscellaneous Notes Telephone Encounter - FreeMaggie LPN - 03/02/2018 4:22 PM PDTPatient notified of mor pablo with comments Telephone Encounter - FreeMaggie LPN - 03/02/2018 4:22 PM PDT----- Message from Sulaiman Thapa MD sent at 03/02/2018 15:11 PDT ----- Labs are fine. document ed in this encounter Plan of Treatment +--------+---------+ + + + | Date | Type | Specialty | Care Team | Description | +--------+---------+ + + + | 05/17/ | Office | Internal Medicine | Alanis, | | | 2019 | Visit | | MD Petrona | | | | | | [address] [place] [address] [place] | | | | | | [place] [address] | | | | | | [phone] | | | | | | | | +--------+---------+ + + + documented as of this encounter Visit Diagnoses Not on filedocumented in this encounter"
--- OUTSIDE RECORDS SUMMARY | ~2020-02-29 | XMS | Encounter Summary ---
Demographics + + + | Address | [address] | | | [place] [address] | + + + | Home Phone | | + + + | Preferred Language | Unknown | + + + | Marital Status | Single | + + + | Orthodox Affiliation | ADV | + + + | Race | White | + + + | Ethnic Group | Not or | + + + Author + + + | Author | [facility] | + + + | Organization | [facility] | + + + | [...] Team Providers + +------+ + | Care Fly Maker Name | Role | Phone | + +------+ + PCP | Unavailable | + +------+ + Encounter Details +--------+ + + + + | Date | Type | Department | Care Team | Description | +--------+ + + + + | 04/10/ | Office | [facility] | Clinic, | Progress Note | | 2004 | Visit-Trans | | Rheumatology | | | | cribed | | [...] as of this encounter Progress Notes Interface, Vice President Corporate Communications In - 01/12/2005 9:13 AM PDT [id number] [facility] Date: 04/10/2004 Clinic: Rheumatology Subjective: Belinda Meehan is a 44-year-old woman here for followup of fibromyalgia. Since I have last seen her, she has had a gastric bypass and has lost about 100 pounds. She is quite proud of this fact. As her weight has decreased, she really has not noticed a lot of decrease in pain. She felt that she had a good summar, but now that it is getting colder and darker out, she has more problems with fatigue and pain. On VAS today, her pain is 10/10, fatigue is 8/10, and sense of disability is 10/10. She has a lot of burning-type pain in her knees and legs, shoulders, and hips. She also has had a recent spine x-ray for pain and notes that she has been told that she needs a DEXA scan, because they think she has significant osteoporosis. This has not been determined yet. She has a gallbladder removed 1 month ago, and she also had a bone spur surgery on her right Achilles' tendon in January 2004. At our last visit, we did trigger point injections in the gluteal areas and the trapezius, and they have really helped reduce the pain for about 2 to 2-1/2 months. She would like to repeat those today. At the last visit, we also did a trial of Mirapex, and she found that it was fairly helpful. However, she did not get the medication refilled after her samples ran out. She does note that she gets tingling in her thighs down to her knees. It is worse with sitting and it is worse in residential therapist and early evening. Her IGF-1 was low at 71 in one of her visits and that could have been from any number of things including obesity, fibromyalgia, or one could consider that she has a growth hormone deficiency syndrome. She did have an episode of severe vaginal bleeding, and I was wondering if perhaps she had gotten Curt's syndrome, however, her fibromyalgia symptoms started 10 years after this bleeding, rather than 6 months. She has had a whiplash injury but no true head injuries. Current Medications 1. Darvocet-N 100, 500 mg as needed. 2. Vitamin B12 injections 1000 units two times per month. 3. Multivitamin 2 per day. 4. Calcium plus vitamin D 2 per day. 5. Ranitidine 150 mg 2 times daily. Objective Vital Signs: Weight is 237. Pulse is 76 and regular, blood pressure is 120/74. Musculoskeletal: She does have tender myofascial trigger points in the mid trapezius bilaterally. The paraspinous muscles at about T8 and the left gluteal muscles which is probably a result of having to wear a splint on the left foot. Laboratory Data: Labs, I do like to keep track of vitamin D levels, and she did have a vitamin D level this past February 2004, which was quite adequate at 67. Assessment and Plan 1. We went ahead and did trigger point injection in all of the muscles listed above, in the object of section. We used 0.5% Procaine in the upper body and 0.5% Procaine with some about 1 mg of Depo-Medrol added to the injectate for the right gluteal muscles. She tolerated the injections quite well, and I will hope that they last for 3 months or so. 2. I have given her an article to pass on to her physician about the use of Mirapex in fibromyalgia. I have given her #84 samples. She is to start with just 1 pill in the early evening and each week increase to the point where she is taking 3 pills which will be Mirapex 0.75 mg in the early evening. If she tolerates the medication well, we may increase to 1 mg. There is some indication of perhaps a poor dopamine function in the hippocampus and there may be a connection with chronic pain. Some patients have been helped in terms of decreased pain with this medication, so it is worth a trial. I do not want to try her on Mestinon until her gastric bypass and gallbladder problems have all completely settled, and even if we do try it, will be low dose, and we will repeat and IGF-1 when her weight loss seems to stabilize. I will see her back in about 3 months. Caitlin Rivera M.S., F.N.P. / [id number] / [id number] / [id number] / cc: Pedrito Gutierrez M.D. [address] [place], [place] [address] documented i n this encounter Plan of Treatment Not on filedocumented as of this encounter Visit Diagnoses Not on filedocumented in this encounter"
--- OUTSIDE RECORDS SUMMARY | ~2020-02-29 | XMS | Encounter Summary ---
Demographics + + + | Address | [address] | | | [place] [address] | + + + | Home Phone | | + + + | Preferred Language | Unknown | + + + | Marital Status | | + + + | Holiness Affiliation | 1001 | + + + | Race | White | + + + | Ethnic Group | Not or | + + + Author + + + | Author | [facility] | | | and [place] | + + + | Organization | [facility] | | | [...] Team Providers + +------+ + | Care Math And Science Division Chair Name | Role | Phone | + +------+ + | Petrona Thapa | PCP | | | MD | | | + +------+ + Reason for Visit + +--------+ + | Reason | Onset | Comments | | | Date | | + +--------+ + | Pain Management | 05/28/ | | | | 2016 | | + +--------+ + Encounter Details +--------+ + + + + | Date | Type | Department | Care Team | Description | +--------+ + + + + | 05/28/ | Telephone | [facility] | Alanis, | Pain Management | | 2016 | | [facility] [address] | MD Petrona | | | | | [place], | [address] | | | | | [place] [address] | [place] [address] | | | | | [phone] | [phone] | | | | | | | [...] Telephone Encounter - Maggie Montoya LPN - 05/28/2017 3:58 PM PSTSpoke to patient she is w anting to be referred to a different pain clinic, does not like having to drive all the way to the [facility] and was told by her insurance that there was a clinic in the [facility]. I inf ormed her that she would need to call them to see if they would accept her insurance since s he was from [place] and prescribe medications. She has a follow up appt with on 06/01/17 to discuss. elephone En mauro - Maylin Sky - 05/28/2017 11:04 AM PSTContact/Caller: Belinda Contact Number: [phone] Provider/Nurse: Emmy Reason for Call: Patient is requesting a call back regarding her pain management sometime t elias. Last Appointment: 05/04 Next Appointment: 06/01 documented in this encount er Plan of Treatment +--------+---------+ + + + | Date | Type | Specialty | Care Team | Description | +--------+---------+ + + + | 05/17/ | Office | Internal Medicine | Alanis, | | | 2019 | Visit | | MD Petrona | | | | | | [facility] [address] | | | | | | [place] [address] | | | | | | [phone] | | | | | | | | +--------+---------+ + + + documented as of this encounter Visit Diagnoses Not on filedocumented in this encounter"
--- OUTSIDE RECORDS SUMMARY | ~2020-02-29 | XMS | Encounter Summary ---
Demographics + + + | Address | [address] | | | [place] [address] | + + + | Home Phone [...] + + + | Author | [facility] | + + + | Organization | [facility] | + + + | [...] Team Providers + +------+ + | Care Environmental Property Assessor Name | Role | Phone | + +------+ + | Pedrito Gutierrez MD | PCP | | + +------+ + Reason for Visit + +--------+ + | Reason | Onset | Comments | | | Date | | + +--------+ + | Medication Questions | 09/20/ | | | | 2009 | | + +--------+ + Encounter Details +--------+ + + + + | Date | Type | Department | Care Team | Description | +--------+ + + + + | 09/20/ | Telephone | DESU Comprehensive | Miranda Lambert, | Medication Questions | | 2009 | | [facility] | [facility] | | | [facility] | | | | | | [address] | | | | | | [facility] | | | | | | and [place], | | | | | | [facility] | | | | | | [place], [place] | | | | | | [address] | | | | | | [phone] | | | +--------+ + + + [...] this encounter Miscellaneous Notes Telephone Encounter - Mirnada Lambert, NIHARIKA - 09/20/2009 3:43 PM Max Gutierrez MD called ba ck He reports being concerned about multiple ED vists "every 2-3 weeks", reports frequent fall ing. "she doesn't need narcotics". 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 He reports how she has "[place]" utilizing medical transport and visitations. Reports currently prescribing: Oxycontin 40 mg bid and oxycodone 5 mg prn average of 4 per day. #120 per 30 days. No sure if ED visits have prescribed. Impression: Dr. 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 He is willing to following recommendations on an opioi d taper. Plan: - Dr Herrera to ask Belinda to initiate scheduling a follow up at the [facility] Evaluate situation myself. Dr. Gutierrez asking for instructions on an how to taper off opioids - Suggested urine drug screening for drugs of abuse - Suggested evaluation of other differentials for falling - I Confirmed I would not be prescribing only given recommendations. - I requested he send progress and ED notes that address his concerns. - I recommended referral to Psychiatry: he said there were none in [facility] and didn't thi nk there was any in [facility] either. elephone Encounter - Miranda Lambert ANP - 09/20/2009 2:26 PM PDTI called [phone] Irving green MD to address his medication questions. I spoke with Svetlana psychology lecturer who said he w as not available being with a patient and that he wanted to call back "in a little bit". I did leave my phone extension. Peyton Brown 09/12/09 04:[address] Gutierrez's nurse called to speak with Miranda Lambert regarding Belinda's current dosage o f chronic narcotics. Dr. Gutierrez feels she needs to be weaned off due to oversedation and th e patient is falling one to two times per month requiring frequent visits to the ED. I advis ed that Miranda Lambert would be back in the office on 09/19/09 - also the patient was last see n by her at [facility] 3/16/2009 documented in this encounter Plan of Treatment Not on filedocumented as of this encounter Visit Diagnoses Not on filedocumented in this encounter
--- OUTSIDE RECORDS SUMMARY | ~2020-02-29 | XMS | Encounter Summary ---
Demographics + + + | Address | [address] | | | [place] [address] | + + + | Home Phone [...] Team Providers + +------+ + | Care Ply Bander Name | Role | Phone | + +------+ + | Pedrito Gutierrez MD | PCP | | + +------+ + Reason for Visit + +--------+ + | Reason | Onset | Comments | | | Date | | + +--------+ + | Follow-up visit | 04/28/ | | | | 2007 | | + +--------+ + Consultation (Routine) +--------+--------+ + + + + | Status | Reason | Specialty | Diagnoses / | Referred By | Referred To | | | | | Procedures | Contact | Contact | +--------+--------+ + + + + | Closed | | Pain | Diagnoses | [facility]acle, | Cooper, | | | | Management | LBP (low | NIHARIKA Jean | Lukasz Rhodes, PhD | | | | | back pain) | [address] | [address] | | | | | DJ[address] | [address] | Ave | | | | | (degenerativ | [place], [place] | [place] | | | | | e joint | [address] | [address] | | | | | disease) of | | Phone: | | | | | knee Knee | | [phone] | | | | | pain Major | | Fax: | | | | | depressive | | [phone] | | | | | disorder, | [...] Description | +--------+---------+ + + + | 04/28/ | Office | [facility] | Lukasz Charles, | Major Depressive | | 2007 | Visit | [address] | PhD [address] | Disorder, Recurrent | | | [facility] | [place], [place] | Episode, Mild (HCC); | | | | and Healing, | [address] | LBP (Low Back | | | | | [phone] | Pain); Migraine | | | | Floor [place], [place] | | Headache | | | | [address] | | | | | | [phone] | | | +--------+---------+ + + + [...] this encounter Progress Notes Lukasz Charles - 04/28/2008 8:59 AM PSTPROGRESS NOTE: Belinda Meehan is a 47 y.o. female with head, abdominal, back, and leg pain. She report ed that she is planning to have back surgery the 1st or 2nd week of May. We discussed her p lans and expectations. She is a bit fearful but also optimistic. We discussed her mood. S he has had some crying lately because she has been thinking about her mother. She has been listening to some of her mother's favorite music and has been missing her. She brought some of her quilting and showed it to me. She has good plans for after surgery. She reported t hat she is still enjoying the therapy pool and she stated that her son's girlfriend works at a local [employer] and she may be able to use the hot tub there. Ms. Meehan has ongoing depression and frustration. She is not suicidal. She is strugglin g with diffuse pain and poor sleep. She is optimistic about surgery and she has some good p lans for her surgical recovery period. She is scheduled to come here after surgery. Diagnosis: Mcrae Helena I: 1. (296.31) Major depressive disorder, recurrent, mild. 2. (309.24) Adjustment disorder with anxiety. 3. (307.89) Chronic pain disorder associated with both psychological factors and a gene ral medical condition. Mcrae Helena II: Deferred Mcrae Helena III: abdominal pain, migraine headache, low back pain. Mcrae Helena IV: low finances Mcrae Helena V: GAF 55-60 Plan: return with next medical follow-up appointment. Check mood, pain, surgical recovery , relaxation, activity, distraction, eating. Ask about headaches, fainting, Thanksgiving. Continue cognitive/behavioral therapy. Total time spent with patient was approximately 45 minutes. LUKASZ CHARLES PHD [facility] [address] [place] [address] [address] [facility] [address] [place] [address] documented in this encount er Plan of Treatment + + +--------+ + + | Name | Type | Priori | Associated Diagnoses | Order Schedule | | | | ty | | | + + +--------+ + + | [facility], | Procedures | Routin | Major Depressive | Ordered: 04/28/2008 | | OFFICE (29-50) | | e | Disorder, Recurrent | | | | | | Episode, Mild (HCC) | | | | | | LBP (Low Back Pain) | | | | | | Migraine Headache | | + + +--------+ + + documented as of this encounter Visit Diagnoses + + | Diagnosis | + + | Major depressive disorder, recurrent episode, mild (HCC) Major depressive disorder, | | recurrent episode, mild | + + | LBP (low back pain) Lumbago | + + | Migraine headache Migraine, unspecified, without mention of intractable migraine | | without mention of status migrainosus | + + documented in this encounter"
--- OUTSIDE RECORDS SUMMARY | ~2020-02-29 | XMS | Encounter Summary ---
Demographics + + + | Address | [address] | | | [place] [address] | + + + | Home Phone [...] Team Providers + +------+ + | Care Bale Sewer Name | Role | Phone | + [...]
--- OUTSIDE RECORDS SUMMARY | ~2020-02-29 | XMS | Encounter Summary ---
Demographics + + + | Address | [address] | | | [place] [address] | + + + | Home Phone | | + + + | Preferred Language | Unknown | + + + | Marital Status | | + + + | Jehovah'S Witness Affiliation | 1001 | + + + | Race | White | + + + | Ethnic Group | Not or | + + + Author + + + | Author | [facility] | | | and [place] | + + + | Organization | [facility] | | | [...] Team Providers + +------+ + | Care High Frequency Mill Operator Name | Role | Phone | + +------+ + | Petrona Thapa | PCP | | | MD | | | + +------+ + Encounter Details +--------+ + + + + | Date | Type | Department | Care Team | Description | +--------+ + + + + | 07/27/ | Abstract | [facility] | Ulysses Genao, | | | 2017 | | PHYSIATRY [address] | MD [address] | | | | | [address] | [place] | | | | | [place] | [address] | | | | | [address] | | | | | | [phone] | | | +--------+ + + + [...] | | | | | [place] [address] | | | | | | [phone] | | | | | | | | +--------+---------+ + + + documented as of this encounter Visit Diagnoses Not on filedocumented in this encounter"
--- OUTSIDE RECORDS SUMMARY | ~2020-02-29 | XMS | Encounter Summary ---
Demographics + + + | Address | [address] | | | [place] [address] | + + + | Home Phone | | + + + | Preferred Language | Unknown | + + + | Marital Status | Single | + + + | Islam Affiliation | ADV | + + + [...] Team Providers + +------+ + | Care Battery Container Finishing Hand Name | Role | Phone | + +------+ + PCP | Unavailable | + +------+ + Encounter Details +--------+ + + + + | Date | Type | Department | Care Team | Description | +--------+ + + + + | 09/30/ | Results | Endocrinology, | Beto Meeks MD | | | 2001 | Only | Diabetes and | [address] | | | | | Clinical Nutrition | [place], [place] | | | | | [address] | [address] | | | | | Loop Mailcode: [id number] | [phone] | | | | | Outpatient Clinic | | | | | | [facility] | | | | | | [place] [address] | | | | | | [phone] | | | +--------+ + + + [...] | + +--------+ + + + | CA -CALCIUM, SERUM | Routin | 09/30/2001 | | Results for this | | | e | 11:31 AM | | procedure are in the | | | | PDT | | results section. | + +--------+ + + + | HEMOGLOBIN | Routin | 09/30/2001 | | Results for this | | EVALUATION | e | 11:31 AM | | procedure are in the | | | | PDT | | results section. | + +--------+ + + + | PTH, SERUM | Routin | 09/30/2001 | | Results for this | | | e | 11:31 AM | | procedure are in the | | | | PDT | | results section. | + +--------+ + + + documented in this encounter Results PTH, SERUM (09/30/2001 11:31 AM PDT) + +-------+ + + + | Component | Value | Ref Range | Performed | Pathologist | | | | | At | Signature | + +-------+ + + + | PTH, SERUM | 50.0 | 10.0 - 65.0 | | | | | | pg/mL | | | + +-------+ + + + + + | Specimen | + + | | + + + + + + + | Performing | Address | City/State/Zipcode | Phone Number | | Organization | | | | + + + + + | [facility] | [address] | [place] [address] | | | LABORATORY | | | | + + + + + CA -CALCIUM, SERUM (09/30/2001 11:31 AM PDT) + +-------+ + + + | Component | Value | Ref Range | Performed | Pathologist | | | | | At | Signature | + +-------+ + + + | CALCIUM, | 9.5 | 8.4 - 10.2 | | | | SERUM | | mg/dL | | | + +-------+ + + + + + | Specimen | + + | | + + + + + + + | Performing | Address | City/State/Zipcode | Phone Number | | Organization | | | | + + + + + | [facility] | [address] | [place] [address] | | | LABORATORY | | | | + + + + + HEMOGLOBIN, ELECTRO, QUANT A2* (09/30/2001 11:31 AM PDT) + + + + + + | Component | Value | Ref Range | Performed | Pathologist | | | | | At | Signature | + + + + + + | HEMOGLOBIN | 97.0 | 96.5 - 99.9 % | | | | A1 | | | | | + + + + + + | HEMOGLOBIN | < 1.0 | <2.0 % | | | | F | | | | | + + + + + + | HEMOGLOBIN | 3.0 | <3.6 % | | | | A2 | | | | | + + + + + + | INTERPRETAT | No abnormal hemoglobin | | | | | ION (BM) | detected. | | | | + + + + + + + + | Specimen | + + | | + + + + + | Narrative | Performed At | + + + | Hemoglobin Electrophoresis, Whole Blood Test performed by | | | [facility]. | | + + + + + + + + | Performing | Address | City/State/Zipcode | Phone Number | | Organization | | | | + + + + + | [facility] | [address] | [place] [address] | | | LABORATORY | | | | + + + + + documented in this encounter Visit Diagnoses Not on filedocumented in this encounter"
--- OUTSIDE RECORDS SUMMARY | ~2020-02-29 | XMS | Encounter Summary ---
Demographics + + + | Address | [address] | | | [place] [address] | + + + | Home Phone [...] Team Providers + +------+ + | Care Bonsai Culturist Name | Role | Phone | + +------+ + | Petrona Thapa | PCP | | | MD | | | + +------+ + Reason for Visit +--------+--------+ + | Reason | Onset | Comments | | | Date | | +--------+--------+ + | Pain | 02/25/ | | | | 2019 | | +--------+--------+ + Encounter Details +--------+ + + + + | Date | Type | Department | Care Team | Description | +--------+ + + + + | 02/25/ | Telephone | [facility] | Alanis, | Pain | | 2019 | | MEDICINE [address] | MD Petrona | | | | | [place], | [address] | | | | | [place] [address] | [place] [address] | | | | | [phone] | [phone] | | | | | | | [...] Telephone Encounter - Maggie Montoya LPN - 02/25/2019 10:13 AM Yeni SHEEHAN patient needs to s beaver medical attention for evaluation for back pain at the urgent care/ED. Patient understand s and accepts elephone Encounter - Sia Bai - 02/25/2019 8:12 AM PDTPatient is calling in to speak with nurse is having sever back pain that is causing her trouble to walk would like to get advice on w hat to do. documented in this encounter Plan of Treatment [...] | | | | | [place] [address] | | | | | | [phone] | | | | | | | | +--------+---------+ + + + documented as of this encounter Visit Diagnoses Not on filedocumented in this encounter"
--- OUTSIDE RECORDS SUMMARY | ~2020-02-29 | XMS | Encounter Summary ---
Demographics + + + | Address | [address] | | | [place] [address] | + + + | Home Phone | | + + + | Preferred Language | Unknown | + + + | Marital Status | Single | + + + | Alevism Affiliation | ADV | + + + | Race | White | + + + | Ethnic Group | Not or | + + + Author + + + | Author | [facility] | + + + | Organization | [facility] | + + + | [...] Team Providers + +------+ + | Care Post Anesthesia Room Nurse Name | Role | Phone | + +------+ + | Pedrito Gutierrez MD | PCP | | + +------+ + Encounter Details +--------+ + + + + | Date | Type | Department | Care Team | Description | +--------+ + + + + | 08/22/ | Hospital | Radiology/Imaging | | | | 2008 | Encounter | Lab at [facility] [address] | | | | | [address] [facility] | | | | | [facility], | | | | | | [place] [address], [facility] | | | | | | Floor [place], [place] | | | | | | [address] | | | | | | [phone] | | | +--------+ + + + [...] +---------+--------+ + documented as of this encounter Plan of Treatment + +---------+--------+ + + | Name | Type | Priori | Associated Diagnoses | Date/Time | | | | ty | | | + +---------+--------+ + + | MRI SPINE CERVICAL | Imaging | Routin | Neck Pain | 08/22/2008 11:51 AM | | [facility] CONTR | | e | Radicular Pain in | PDT | | | | | Left Arm Dizziness | | | | | | Black Out Falling | | + +---------+--------+ + + + +---------+--------+ + + | Name | Type | Priori | Associated Diagnoses | Order Schedule | | | | ty | | | + +---------+--------+ + + | MRI SPINE CERVICAL | Imaging | Routin | Neck Pain | 1 Occurrences | | WWO CONTR | | e | Radicular Pain in | starting 08/22/2008 | | | | | Left Arm Dizziness | | | | | | Black Out Falling | | + +---------+--------+ + + documented as of this encounter Visit Diagnoses + + | Diagnosis | + + | Neck pain Cervicalgia | + + | Radicular pain in left arm Neuralgia, neuritis, and radiculitis, unspecified | + + | Dizziness Dizziness and giddiness | + + | Black out Syncope and collapse | + + | Falling Unspecified fall | + + documented in this encounter"
--- OUTSIDE RECORDS SUMMARY | ~2020-02-29 | XMS | Encounter Summary ---
Demographics + + + | Address | [address] | | | [place] [address] | + + + | Home Phone [...] Team Providers + +------+ + | Care Older Adult Social Work Specialist Name | Role | Phone | + +------+ + | Pedrito Gutierrez MD | PCP | | + +------+ + Encounter Details +--------+ + + + + | Date | Type | Department | Care Team | Description | +--------+ + + + + | 12/26/ | Telephone | [facility] | Lukasz Ogden, | | | 2007 | | Pain Center at | PhD [address] | | | | | [facility] | [place], [place] | | | | | [address] | [address] | | | | | [facility] | [phone] | | | | | and Healing, | | | | | | Building | | | | | | Floor [place], [place] | | | | | | [address] | | | | | | [phone] | | | +--------+ + + + [...] this encounter Miscellaneous Notes Telephone Encounter - Ignacio Hernandez - 12/27/2007 3:58 PM Marlene requested that i notif y that she is an inpatient at [facility] after an abdominal surgery. documented in this encounter Plan of Treatment Not on filedocumented as of this encounter Visit Diagnoses Not on filedocumented in this encounter"
--- OUTSIDE RECORDS SUMMARY | ~2020-02-29 | XMS | Encounter Summary ---
Demographics + + + | Address | [address] | | | [place] [address] | + + + | Home Phone [...] Team Providers + +------+ + | Care Keg Inspector Name | Role | Phone | [...]
--- OUTSIDE RECORDS SUMMARY | ~2020-02-29 | XMS | Encounter Summary ---
Demographics + + + | Address | [address] | | | [place] [address] | + + + | Home Phone | | + + + | Preferred Language | Unknown | + + + | Marital Status | Single | + + + | Presybeterian Affiliation | ADV | + + + [...] Team Providers + +------+ + | Care Fire Official Name | Role | Phone | + +------+ + | Pedrito Gutierrez MD | PCP | | + +------+ + Reason for Visit + +--------+ + | Reason | Onset | Comments | | | Date | | + +--------+ + | Follow-up visit | 10/07/ | | | | 2006 | | + +--------+ + Encounter Details +--------+---------+ + + + | Date | Type | Department | Care Team | Description | +--------+---------+ + + + | 10/07/ | Office | Pain Center at [facility] | Lukasz Charles, | Major Depressive | | 2006 | Visit | [address] | PhD [address] | Disorder, Recurrent | | | | [facility] | [place], [place] | Episode, Moderate | | | | and Healing, | [address] | ([facility]); Spondylosis | | | | | [phone] | with Myelopathy, | | | | Floor [facility] [place] | | Lumbar Region; | | | | [address] | | Chronic Abdominal | | | | [phone] | | Pain; Adjustment | | | | | | Disorder with | | | | | | Anxiety; DJD | | | | | | (Degenerative Joint | | | | | | Disease) of Left | | | | | | Knee | +--------+---------+ + + + Social History [...] + documented as of this encounter Progress Lukasz Gerard - 10/07/2006 11:10 AM PDTPROGRESS NOTE: Belinda Meehan is a 46 y.o. female with head, abdominal, back, and leg pain. She has sym ptoms of depression and anxiety along with her pain. She has plans to move the first of month and she has talked with her sons to make sure they will help with the move. She is being more assertive and is finding that it helps for her to take better care of herself. S he reported working with her primary care provider because of fluid retention. She reported that she is also being worked-up for knee surgery. We discussed ongoing self-care. She re ported that these appointments are helpful and she would like to schedule more. Ms. Meehan has ongoing depression and frustration. She is not suicidal. She continues to make some progress. She has a lot of issues coming up and she will need to continue self-c are. Diagnosis: [place] I: 1. (296.32) Major depressive disorder, recurrent, moderate. 2. (309.24) Adjustment disorder with anxiety. 3. (307.89) Chronic pain disorder associated with both psychological factors and a gene ral medical condition. [place] II: Deferred [place] III: abdominal pain, migraine headache, low back pain. [place] IV: low finances [place] V: GAF 50 Plan: Return in 2 weeks. Schedule 4 follow-up appointments. Check preparation for move and for niece's visit. Check [employer], pacing, relaxation, activity, distraction. Check "Managin g Pain..." book. Continue cognitive/behavioral therapy. Total time spent with patient was approximately 45 minutes. [facility] [address] [place] [address] And [facility] [address] [place] [address] documented in this encount er Plan of Treatment + + +--------+ + + | Name | Type | Priori | Associated Diagnoses | Order Schedule | | | | ty | | | + + +--------+ + + | [facility], | Procedures | Routin | Major Depressive | Ordered: 10/07/2006 | | OFFICE (21-20) | | e | Disorder, Recurrent | | | | | | Episode, Moderate | | | | | | ([facility]) Spondylosis | | | | | | with Myelopathy, | | | | | | Lumbar Region | | | | | | Chronic Abdominal | | | | | | Pain Adjustment | | | | | | Disorder with | | | | | | Anxiety DJD | | | | | | (Degenerative Joint | | | | | | Disease) of Left | | | | | | Knee | | + + +--------+ + + documented as of this encounter Visit Diagnoses + + | Diagnosis | + + | Major depressive disorder, recurrent episode, moderate (HCC) Major depressive | | disorder, recurrent episode, moderate | + + | Spondylosis with myelopathy, lumbar region | + + | Chronic abdominal pain Abdominal pain, unspecified site | + + | Adjustment disorder with anxiety | + + | 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
--- OUTSIDE RECORDS SUMMARY | ~2020-02-29 | XMS | Encounter Summary ---
Demographics + + + | Address | [address] | | | [place] [address] | + + + | Home Phone | | + + + | Preferred Language | Unknown | + + + | Marital Status | Single | + + + | Congregation Affiliation | ADV | + + + | Race | White | + + + | Ethnic Group | Not or | + + + Author + + + | Author | [facility] | + + + | Organization | [facility] | + + + | Address [...] Team Providers + +------+ + | Care Mixed Crop And Livestock Farm Worker Name | Role | Phone | + +------+ + | Maria Esther Cintron MD | PCP | | + +------+ + Encounter Details +--------+ + + + + | Date | Type | Department | Care Team | Description | +--------+ + + + + | 11/27/ | Telephone | [facility] | Miranda Lambert, | | | 2006 | | Center Outpatient | ANP | | | | | Therapy Center [address] | | | | | | Outpatient Therapy | | | | | | Center 2nd floor | | | | | | Mailcode: [id number] | | | | | | [place], [place] | | | | | | [address] | | | | | | [phone] | | | +--------+ + + + [...] this encounter Miscellaneous Notes Telephone Encounter - Zachary Sampson - 12/05/2011 1:20 PM PDTThis encounter has been admin istratively closed with the authorization of the [facility] Committee. elephone Encounter - Miranda Jerome - 12/02/2006 9:23 AM PDTI will not be providing an early refill but would be nguyen ppy to see her soila to discuss the problem and alternative treatments Please call and advise patient A M PDTTelephone Encounter - Tasha Nolasco - 11/27/2006 11:59 AM Katina, I just receive a phone call from [facility] stating that she wants a early refill on her Duragesic patches. She is stating they are falling off. Belinda was just here a few da ys ago and I spoke with her regarding her break thru medication that needs a PA and at that time ask her if there were any other issue or problems with her medication that I could help her with and she stated no everything was ok...Please advise on what you would like to do.. .Cindy documented in this enco unter Plan of Treatment Not on filedocumented as of this encounter Visit Diagnoses Not on filedocumented in this encounter"
--- OUTSIDE RECORDS SUMMARY | ~2020-02-29 | XMS | Encounter Summary ---
Demographics + + + | Address | [address] | | | [place] [address] | + + + | Home Phone | | + + + | Preferred Language | Unknown | + + + | Marital Status | | + + + | Quaker Affiliation | 1001 | + + + | Race | White | + + + | Ethnic Group | Not or | + + + Author + + + | Author | [facility] | | | and [place] | + + + | Organization | [facility] | | [...] Team Providers + +------+ + | Care Concrete Mason Name | Role | Phone | + +------+ + | Petrona Thapa | PCP | | | MD | | | + +------+ + Reason for Visit +--------+--------+ + | Reason | Onset | Comments | | | Date | | +--------+--------+ + | Other | 03/01/ | | | | 2017 | | +--------+--------+ + Encounter Details +--------+ + + + + | Date | Type | Department | Care Team | Description | +--------+ + + + + | 03/01/ | Telephone | [facility] | Alanis, | Other | | 2017 | | MEDICINE [address] | MD Petrona | | | | | [place], | [address] [facility] | | | | | [place] [address] | [place] [address] | | | | | [phone] | [phone] | | | | | | | [...] Telephone Encounter - Maggie Montoya LPN - 03/01/2018 1:55 PM PDTPatient notified of co mments. Appointment scheduled for tomorrow amElectronically signed by Maggie Montoya LPN at 0 03/01/2018 1:56 PM PDTTelephone Encounter - Petrona Thapa MD - 03/01/2018 1: 10 PM PDTMRIs are not typically ordered for migraine attacks. If this is a severe h/a, worse than any she ever had, should go to ER. If not at that level of severity, we can evaluate her tomorrow. elephone Encounter - Kuo Mary Kay Katie - 03/01/2018 9:22 AM PDTPatient called and states that over the weekend she had severe mi graine pain. The pain would come and go on left side of her head and right side of neck. Sta nader it feels like something is pinching her neck and also reports nausea but no vomiting. Kevin rodriguez is wanting an MRI, offered to schedule appointment for tomorrow to see Dr. Booth, but tristen de is wanting to speak with nurse. Please advise. Patient states to call after 10:30 am demetrius espinal she is at an appointment right now. Electronically signed by Mary Kay Kuo at 02/13 9:25 AM PDTdocumented in this encounter Plan of Treatment +--------+---------+ + + + | Date | Type | Specialty | Care Team | Description | +--------+---------+ + + + | 05/17/ | Office | Internal Medicine | Alanis, | | | 2019 | Visit | | MD Petrona | | | | | | [facility] [address] | | | | | | [place] [address] | | | | | | [phone] | | | | | | | | +--------+---------+ + + + documented as of this encounter Visit Diagnoses Not on filedocumented in this encounter"
--- OUTSIDE RECORDS SUMMARY | ~2020-02-29 | XMS | Encounter Summary ---
Demographics + + + | Address | [address] | | | [place] [address] | + + + | Home Phone [...] Team Providers + +------+ + | Care Highway Commissioner Name | Role | Phone | + +------+ + | Pedrito Gutierrez MD | PCP | | + +------+ + Encounter Details +--------+ + + + + | Date | Type | Department | Care Team | Description | +--------+ + + + + | 05/20/ | Telephone | [facility] | Rohan Foley MD | | | 2005 | | [place] [address] [address] | | | | | | [facility] | | | | | | for Health and | | | | | | Healing, [address] | | | | | | [place], [place] | | | | | | [address] | | | | | | [phone] | | | +--------+ + + + [...] this encounter Miscellaneous Notes Telephone Encounter - Cole Rosario - 05/28/2006 3:09 PM PSTPT INFORMED. LEFT MSG STATING EGD AND CAPSULE WERE NORMAL. TTelephone Encounter - Nuris Rader Md - 05/28/2006 11:07 AM PSTSilverblatt patient; will forward to him. elephone Encounter - Rohan Foley - 05/26/2006 3:07 PM PSTegd and capsule study were normal-please let her know- thanks elephone Encounter - 05/20/2006 4:21 PM PST Staff Message copied by COLE ROSARIO on 05/20/2006 at 4:21 PM ------ Message from: IMMANUEL KENNEDY Created: 05/19/2006 at 9:40 AM Regarding: sarah egd results Contact: PT Belinda Shefali would like the results of her EGD 05/12/[address] Foley. Please call b glenys. documented in this encoun ter Plan of Treatment Not on filedocumented as of this encounter Visit Diagnoses Not on filedocumented in this encounter"
--- OUTSIDE RECORDS SUMMARY | ~2020-02-29 | XMS | Encounter Summary ---
Demographics + + + | Address | [address] | | | [place] [address] | + + + | Home Phone [...] Author + + + | Author | [facility] | + + + | Organization | [facility] | + + + | Address [...] Team Providers + +------+ + | Care Candy Supervisor Name | Role | Phone | [...] | | | | | (degenerativ | [place], [place] | [place] | | | | | e joint | [address] | [address] | | | | | disease) of | | Phone: | | | | | knee Knee | | [phone] | | | | | pain Major | | Fax: | | | | | depressive | | [phone] | | | | | disorder, | [...] + + + + | 04/20/ | Flexible Shaft Winder | [facility] | Miranda Lambert, | LBP (Low Back Pain); | | 2006 | | Pain Center at | ANP | DJD (Degenerative | | | | [facility] | | Joint Disease) of | | | | [address] | | Knee; Bilateral Knee | | | | [place] [facility] | | Pain; Major | | | | and Healing, | | Depressive Disorder, | | | | Building | | Recurrent Episode, | | | | Floor [place], [place] | | Moderate (HCC); | | | | [address] | | Adjustment Disorder | | | | [phone] | | with Anxiety; | | | [...]
--- OUTSIDE RECORDS SUMMARY | ~2020-02-29 | XMS | Encounter Summary ---
Demographics + + + | Address | [address] | | | [place] [address] | + + + | Home Phone | | + + + | Preferred Language | Unknown | + + + | Marital Status | Single | + + + | Zoroastrian Affiliation | ADV | + + + [...] Team Providers + +------+ + | Care Dressage Instructor Name | Role | Phone | + +------+ + PCP | Unavailable | + +------+ + Encounter Details +--------+ + + + + | Date | Type | Department | Care Team | Description | +--------+ + + + + | 12/11/ | Office | | Note, Outpatient | Progress Note | | 2005 | Visit-Trans | | Clinic | | [...] as of this encounter Progress Notes Interface, Bronze Chaser In - 01/12/2005 10:09 AM PDT [id number] GEOVANNI BELINDA Barnes Clinic Date: 12/11/2004 Clinic: Telephone Note Ms. Meehan contacted this office today requesting a refill on her pain medication. She is status post panniculectomy on December 09, 2004. At discharge, she was given a prescription for oxycodone 5 mg with instructions to take 15 mg every 3 hours as needed for pain, #60. Ms. Meehan states that her postoperative pain has started to decrease, and she is now taking pain medication at the rate of 2 to 3 tablets equal to 10 mg to 15 mg every 3 to 4 hours p.r.n. pain. She states that of the original 60 tablets she has 17 remaining. After discussion with Christie Kirkpatrick, a prescription was written for oxycodone 5 mg with instructions to take 2 to 3 tablets every 4 hours p.r.n. pain, #100, no refills. This prescription was sent to Ms. Meehan' home address [place] [address] [address]. The address was confirmed with Ms. Meehan prior to sending. Ms. Meehan has a followup appointment in Dr. Padgett's clinic on December 19, 2004. Nathalia Richard R.N., B.S.N. Liliya Kirkpatrick. / [id number] / [id number] / [id number] / Electronically signed by Nuris Chapman 12-20-2004 05:05:06 PM documented i n this encounter Plan of Treatment Not on filedocumented as of this encounter Visit Diagnoses Not on filedocumented in this encounter"
--- OUTSIDE RECORDS SUMMARY | ~2020-02-29 | XMS | Encounter Summary ---
Demographics + + + | Address | [address] | | | [place] [address] | + + + | Home Phone [...] + + + | Author | [facility] | | | and [place] | + + + | Organization | [facility] | | [...] Team Providers + +------+ + | Care Resist Coater Developer Name | Role | Phone | + +------+ + | Petrona Thapa | PCP | | | MD | | | + +------+ + Reason for Visit + +--------+ + | Reason | Onset | Comments | | | Date | | + +--------+ + | Migraine | 02/27/ | | | | 2019 | | + +--------+ + Encounter Details +--------+ + + + + | Date | Type | Department | Care Team | Description | +--------+ + + + + | 02/27/ | Telephone | [facility] | Alanis, | Migraine | | 2019 | | MEDICINE [address] | MD Petrona | | | | | [place], | [address] [facility] | | | | | [place] [address] | [place] [address] | | | | | [phone] | [phone] | | | | | | | [...] Telephone Encounter - Maggie Montoya LPN - 02/28/2020 4:08 PM PDTPatient states has done e verything at home to decrease migraine headache. I have instructed patient to seek medical a ttention at the ED in [place], [place] for evaluation. Understands and acceptsElectronically si gned by Maggie Montoya LPN at 02/28/2020 4:10 PM PDTTelephone Encounter - Susanna Boyce - 02/28/2020 3:22 PM PDTPatient calls in wanting to speak to the nurse. States she has a bad migraine that's shooting down to her neck/shoulder making her sick to her stomach.Electronic ally signed by Susanna Boyce at 02/28/2020 3:24 PM PDTdocumented in this encounter Plan of Treatment +--------+---------+ + + + | Date | Type | Specialty | Care Team | Description | +--------+---------+ + + + | 05/17/ | Office | Internal Medicine | Alanis, | | | 2019 | Visit | | MD Petrona | | | | | | [address] | | | | | | [place] [address] | | | | | | [phone] | | | | | | | | +--------+---------+ + + + documented as of this encounter Visit Diagnoses Not on filedocumented in this encounter"
--- OUTSIDE RECORDS SUMMARY | ~2020-02-29 | XMS | Encounter Summary ---
Demographics + + + | Address | [address] | | | [place] [address] | + + + | Home Phone [...] + + + | Author | [facility] | | | and [place] | + + + | Organization | [facility] | | | [...] Team Providers + +------+ + | Care Perfusionist Name | Role | Phone | + +------+ + | Pterona Thapa | PCP | | | MD | | | + +------+ + Encounter Details +--------+ + + + + | Date | Type | Department | Care Team | Description | +--------+ + + + + | 12/07/ | Abstract | [facility] [facility] | Alanis, | | | 2017 | | MEDICINE [address] | MD Petrona | | | | | [place], | [address] [facility] | | | | | [place] [address] | [place] [address] | | | | | [phone] | [phone] | | | | | | | [...] | | | | | [place] [address] | | | | | | [phone] | | | | | | | [...] | Results for this | | STUDY MARI PHILLIPAnn-Marie GILLIAM | e | | | procedure are in the | | ASSESSMENT | | | | results section. | + +--------+ + + + documented in this encounter Results DEXA Bone Density mari Raymondann-marie Josué Assmt (04/01/2016) + +-------+ + + + | [...]
--- OUTSIDE RECORDS SUMMARY | ~2020-02-29 | XMS | Encounter Summary ---
Demographics + + + | Address | [address] | | | [place] [address] | + + + | Home Phone [...] Team Providers + +------+ + | Care Trombone Slide Assembler Name | Role | Phone | + [...] + + | 03/25/ | Refill | [facility] | Alanis, | Medication Refill | | 2016 | | MEDICINE [address] | MD Petrona | | | | | [place], | [address] [facility] | | | | | [place] [address] | [place] [address] | | | | | [phone] | [phone] | | | | | | | [...] | | | | | [place] [address] | | | | | | [phone] | | | | | | | | +--------+---------+ + + + documented as of this encounter Visit Diagnoses Not on filedocumented in this encounter"
--- OUTSIDE RECORDS SUMMARY | ~2020-02-29 | XMS | Encounter Summary ---
Demographics + + + | Address | [address] | | | [place] [address] | + + + | Home Phone | | + + + | Preferred Language | Unknown | + + + | Marital Status | Single | + + + | Worship Affiliation | ADV | + + + | Race | White | + + + | Ethnic Group | Not or | + + + Author + + + | Author | [facility] | + + + | Organization | [facility] | + + + | Address [...] Team Providers + +------+ + | Care Oracle Webcenter Consultant Name | Role | Phone | + +------+ + | Sulaiman Carrera MD | PCP | | + +------+ + Encounter Details +--------+ + + + + | Date | Type | Department | Care Team | Description | +--------+ + + + + | 08/06/ | Ancillary | Registration [id number] | Caitlin [address], | | | 2005 | Registratio | [address] | [address] | | | | [address] | [address] Mailcode: [id number] | | | | | | [place], [place] | | | | | | [address] | | | | | | [phone] | | | +--------+ + + + [...]
--- OUTSIDE RECORDS SUMMARY | ~2020-02-29 | XMS | Encounter Summary ---
Demographics + + + | Address | [address] | | | [place] [address] | + + + | Home Phone [...] Team Providers + +------+ + | Care Real Estate Transaction Coordinator Name | Role | Phone | + +------+ + | Petrona Thapa | PCP | | | MD | | | + +------+ + Reason for Visit + +--------+ + | Reason | Onset | Comments | | | Date | | + +--------+ + | Wrist Pain | 11/24/ | | | | 2019 | | + +--------+ + Encounter Details +--------+ + + + + | Date | Type | Department | Care Team | Description | +--------+ + + + + | 11/24/ | Telephone | [facility] | Alanis, | Wrist Pain | | 2019 | | MEDICINE [address] | MD Petrona | | | | | [place], | [address] [facility] | | | | | [place] [address] | [place] [address] | | | | | [phone] | [phone] | | | | | | | [...] Telephone Encounter - Maggie Montoya LPN - 11/25/2019 12:12 PM PDTPatient notified of xray order faxed to [facility]. Electronically signed by Maggie Montoya LPN at 020 12:13 PM PDTTelephone Encounter - Petrona Thapa MD - 11/25/2019 11:08 AM PDTRx for x-ray ordered. 20 11:08 AM PDTTelephone Encounter - Tiesha Rasmussen - 11/25/2019 10:30 AM PDTPatient called stating that she would like to talk to the nurse about her fall she had a week ago. P atient states that her right wrist is hurting her and would like to know if Dr. Booth woeleanor d to have her come to [place] and see her and possibly have an x-ray down of her wrist o f willing to just place an order for her to have an x-ray on her wrist. Please advise.Electr onically signed by Tiesha Rasmussen at 11/25/2019 10:34 AM PDTdocumented in this encount er Plan of Treatment +--------+---------+ + + + | Date | Type | Specialty | Care Team | Description | +--------+---------+ + + + | 05/17/ | Office | Internal Medicine | Alanis, | | | 2019 | Visit | | MD Petrona | | | | | | [address] | | | | | | [place] [address] | | | | | | [phone] | | | | | | | | +--------+---------+ + + + documented as of this encounter Visit Diagnoses Not on filedocumented in this encounter"
--- OUTSIDE RECORDS SUMMARY | ~2020-02-29 | XMS | Encounter Summary ---
Demographics + + + | Address | [address] | | | [place] [address] | + + + | Home Phone | | + + + | Preferred Language | Unknown | + + + | Marital Status | | + + + | Restoration Affiliation | 1001 | + + + [...] Providers + +------+ + | Care Manager Of Marketing Name | Role | Phone | + +------+ + | Petrona Thapa | PCP | | | MD | | | + +------+ + Reason for Visit + +--------+ + | Reason | Onset | Comments | | | Date | | + +--------+ + | Treatment Order | 02/15/ | | | | 2019 | | + +--------+ + Encounter Details +--------+ + + + + | Date | Type | Department | Care Team | Description | +--------+ + + + + | 02/15/ | Telephone | [facility] | Marlyn Rodriguez, | Treatment Order | | 2019 | | MEDICINE [address] | PharmD [address] | | | | | [place], | [address] [place], | | | | | [place] [address] | [place] [address] | | | | | [phone] | [phone] | | | | | | | [...] this encounter Miscellaneous Notes Telephone Encounter - Marlyn Rodriguez PharmD - 02/16/2020 3:57 PM PDTOrders placed for Recl ast infusion. eleph one Encounter - Marlyn Rodriguez PharmD - 02/16/2020 3:56 PM PDT----- Message from Oz Thapa MD sent at 02/16/2020 11:12 AM PDT ----- Juventino Vick, Can you place an order for a Reclast infusion for Belinda, please. Referral to [facility] was sent. P DTdocumented in this encounter Plan of Treatment +--------+---------+ + + + | Date | Type | Specialty | Care Team | Description | +--------+---------+ + + + | 05/17/ | Office | Internal Medicine | Alanis, | | | 2019 | Visit | | MD Petrona | | | | | | [address] [place] [address] [place] | | | | | | [place] [address] | | | | | | [phone] | | | | | | | | +--------+---------+ + + + documented as of this encounter Visit Diagnoses Not on filedocumented in this encounter"
--- OUTSIDE RECORDS SUMMARY | ~2020-02-29 | XMS | Encounter Summary ---
Demographics + + + | Address | [address] | | | [place] [address] | + + + | Home Phone | | + + + | Preferred Language | Unknown | + + + | Marital Status | | + + + | Sabianism Affiliation | 1001 | + + + [...] Team Providers + +------+ + | Care Independent Living Specialist Name | Role | Phone | + +------+ + | Petrona Thapa | PCP | | | MD | | | + +------+ + Reason for Visit + +--------+ + | Reason | Onset | Comments | | | Date | | + +--------+ + | Medication Refill | 01/18/ | | | | 2019 | | + +--------+ + | Medication Refill | 02/11/ | | | | 2018 | | + +--------+ + Encounter Details +--------+--------+ + + + | Date | Type | Department | Care Team | Description | +--------+--------+ + + + | 01/18/ | Refill | [facility] | Alanis, | Medication Refill; | | 2018 | | MEDICINE [address] | MD Petrona | Medication Refill | | | | [place], | [address] [facility] | | | | | [place] [address] | [place] [address] | | | | | [phone] | [phone] | | | | | | | [...] Telephone Encounter - Maggie Montoya LPN - 01/18/2019 9:44 AM PDTrx pended for MD approval elephone Encounter - Maris Duckworth - 01/18/2019 9:34 AM PDTPatient called requesting refill pharmacy states it has been sent over various times, does not understand why we are are not receiving it. Medication: Potassium-chloride Strength:20 mEq er Directions:3 in the morning 2 in the afternoon Quantity:450 Quantity remaining: for a week Pharmacy:[facility] Date of Last Refill: unknown Date of Last Visit:01/17/19 Date of Next Visit:02/15/19 documented in this en counter Plan of Treatment +--------+---------+ + + + | Date | Type | Specialty | Care Team | Description | +--------+---------+ + + + | 05/17/ | Office | Internal Medicine | Alanis, | | | 2019 | Visit | | MD Petrona | | | | | | [address] | | | | | | [place] [address] | | | | | | [phone] | | | | | | | | +--------+---------+ + + + documented as of this encounter Visit Diagnoses Not on filedocumented in this encounter"
--- OUTSIDE RECORDS SUMMARY | ~2020-02-29 | XMS | Encounter Summary ---
Demographics + + + | Address | [address] | | | [place] [address] | + + + | Home Phone | | + + + | Preferred Language | Unknown | + + + | Marital Status | | + + + | Hinduism Affiliation | 1001 | + + + [...] Team Providers + +------+ + | Care Editorial Specialist Name | Role | Phone | [...] Description | +--------+--------+ + + + | 06/07/ | Refill | [facility] | Alanis, | Medication Refill | | 2017 | | MEDICINE [address] | MD Petrona | | | | | [place], | [address] [facility] | | | | | [place] [address] | [place] [address] | | | | | [phone] | | | | | | | [...] | | | | | | [place] [address] | | | | | | [phone] | | | | | | | | +--------+---------+ + + + documented as of this encounter Visit Diagnoses Not on filedocumented in this encounter"
--- OUTSIDE RECORDS SUMMARY | ~2020-02-29 | XMS | Encounter Summary ---
Demographics + + + | Address | [address] | | | [place] [address] | + + + | Home Phone [...] + + + | Author | [facility] | + + + | Organization | [facility] | + + + | [...] Providers + +------+ + | Care Pressure Supervisor Name | Role | Phone | + +------+ + | Maria Esther Cintron MD | PCP | | + +------+ + Encounter Details +--------+ + + + + | Date | Type | Department | Care Team | Description | +--------+ + + + + | 01/03/ | Telephone | [facility] | [facility], | | | 2009 | | [facility] at | ANP | | | | | [facility] | | | | | | [address] | | | | | | Center for [facility] | | | | | | and Healing, | | | | | | | | | | | | Floor [place], [place] | | | | | | [address] | | | | | | [phone] | | | +--------+ + + + [...] Notes Telephone Encounter - Ignacio Hernandez - 01/03/2010 10:46 AM PDTThe patient reports that since ey have backed off her blood pressure meds she has not fallen "in close to 3 months or more. " She stated that will not Rx for her. I asked her to try to find a physician in [facility] [place] area that would be willing to work with the [facility] and it's recommendations.Maida ctronically signed by Ignacio Hernandez at 01/03/2010 10:46 AM PDTdocumented in this encounter Plan of Treatment Not on filedocumented as of this encounter Visit Diagnoses Not on filedocumented in this encounter
--- OUTSIDE RECORDS SUMMARY | ~2020-02-29 | XMS | Encounter Summary ---
Demographics + + + | Address | [address] | | | [place] [address] | + + + | Home Phone [...] Team Providers + +------+ + | Care Hospice Director Name | Role | Phone | + +------+ + | Pedrito Gutierrez MD | PCP | | + +------+ + Encounter Details +--------+---------+ + + + | Date | Type | Department | Care Team | Description | +--------+---------+ + + + | 07/30/ | Office | [facility] | Eliezer Ruano, | Abdominal Pain | | 2006 | Visit | [facility] [address] | [address] | (Primary Dx) | | | | Ave Mailcode: [id number] | [address] | | | | | [facility] | [facility] [place] | | | | | and Healing, | [address] | | | | | [facility] [address] | [phone] | | | | | Floor [place], [place] | | | | | | [address] | | | | | | [phone] | | | +--------+---------+ + + + [...] the resident s note. ELIEZER RUANO MD [facility] [address] [facility], [address] [place] [address] hMalena leary - 07/30 4:09 PM PSTS: C/o chronic [...]
--- OUTSIDE RECORDS SUMMARY | ~2020-02-29 | XMS | Encounter Summary ---
Demographics + + + | Address | [address] | | | [place] [address] | + + + | Home Phone [...] Team Providers + +------+ + | Care Facility Manager Name | Role | Phone | + +------+ + | Sulaiman Carrera MD | PCP | | + +------+ + Encounter Details +--------+ + + + + | Date | Type | Department | Care Team | Description | +--------+ + + + + | 07/24/ | Ancillary | Registration [address] | [place], | | | 2006 | Registratio | [facility] | MD Lukasz [address] | | [address] | [address] Mailcode: [id number] | [place] [address], | | | | | [place], [place] | [place] [address] | | | | | [address] | [phone] | | | | | [phone] | | | +--------+ + + + [...] + + | DIFFERENTIAL | Routin | 07/24/2005 | | Results for this | | | e | 5:03 PM | | procedure are in the | | | | PST | | results section. | + +--------+ + + + | INR | Routin | 07/24/2005 | | Results for this | | | e | 5:03 PM | | procedure are in the | | | | PST | | results section. | + +--------+ + + + | CBC, WITH | Routin | 07/24/2005 | | Results for this | | DIFFERENTIAL | e | 5:03 PM | | procedure are in the | | | | PST | | results section. | + +--------+ + + + | JUAN MIGUEL LESLIE | Routin | 07/24/2005 | | Results for this | | PANEL, PLASMA | e | 5:03 PM | | procedure are in the | | | | PST | | results section. | + +--------+ + + + | APTT (ACT. PART. | Routin | 07/24/2005 | | Results for this | | THROMBO TIME) | e | 5:03 PM | | procedure are in the | | | | PST | | results section. | + +--------+ + + + | FERRITIN | Routin | 07/24/2005 | | Results for this | | | e | 5:03 PM | | procedure are in the | | | | PST | | results section. | + +--------+ + + + documented in this encounter Results FERRITIN (07/24/2005 5:03 PM PST) + + + + + + | Component | Value | Ref Range | Performed | Pathologist | | | | | At | Signature | + + + + + + | FERRITIN | 11Comment: Test | 10 - 291 ng/mL | | | | | performed at [facility] [...] + + + + + | [facility] | [address] | [place] [address] | | | LABORATORY | | | | + + + + + VON WILLEBRAND PANEL, PLASMA (07/24/2005 5:03 PM PST) + + + + + + | Component | Value | Ref Range | Performed | Pathologist | | | | | At | Signature | + + + + + + | FACTOR VIII | 2.75 (H) | 0.60 - 1.50 | [facility] | | | COAGULAT, | | U/mL | DEPARTMENT | | | PLASMA | | | OF | | | | | | PATHOLOGY | | + + + + + + | FACTOR VIII | No Activity Increase | | [facility] | | | COAGULANT | with Dilution | | DEPARTMENT | | | COMMENT | | | OF | | | | | | PATHOLOGY | | + + + + + + | VONWILLEBRA | 1.64 (H) | 0.60 - 1.50 | [facility] | | | ND FACTOR | | U/mL | DEPARTMENT | | | ACTIVITY, | | | OF | | | PLASMA | | | PATHOLOGY | | + + + + + + | FVIII VWF | 2.56 (H) | 0.60 - 1.50 | [facility] | | | ANTIGEN, | | U/mL | DEPARTMENT | | | PLASMA | | | OF | | | | | | PATHOLOGY | | + + + + + + + + | Specimen | + + | | + + + + + | Narrative | Performed At | + + + | juan miguel Maurer | [facility] | | | DEPARTMENT OF | | | PATHOLOGY | + + + + + + + + | Performing | Address | City/State/Zipcode | Phone Number | | Organization | | | | + + + + + | [facility] DEPARTMENT OF | [address] | [place] [address] | | | PATHOLOGY | [address] | | | + + + + + | [facility] DEPARTMENT OF | [address] | [place] [address] | | | PATHOLOGY | [address] | | | + + + + + DIFFERENTIAL (07/24/2005 5:03 PM PST) + +-------+ + + + | Component | Value | Ref Range | Performed | Pathologist | | | | | At | Signature | + +-------+ + + + | NEUTROPHIL | 50 | 50 - 70 % | [facility] | | | % | | | DEPARTMENT | | | | | | OF | | | | | | PATHOLOGY | | + +-------+ + + + | LYMPHOCYTE | 41 | 18 - 42 % | [facility] | | | % | | | DEPARTMENT | | | | | | OF | | | | | | PATHOLOGY | | + +-------+ + + + | MONOCYTE % | 7 | 2 - 8 % | [facility] [...] + + + | BASO % | 1 | <3 % | [facility] | | | | | | DEPARTMENT | | | | | | OF | | | | | | PATHOLOGY | | + +-------+ + + + | NEUTROPHIL | 3.9 | 1.8 - 7.7 K/cu | [facility] | | | # | | mm | DEPARTMENT | | | | | | OF | | | | | | PATHOLOGY | | + +-------+ + + + | LYMPHOCYTE | 3.2 | 1.0 - 4.8 K/cu | [facility] | | | # | | mm | DEPARTMENT | | | | | | OF | | | | | | PATHOLOGY | | + +-------+ + + + | MONOCYTE # | 0.5 | 0.1 - 0.6 K/cu | [facility] | | | | | mm | DEPARTMENT | | | | | | OF | | | | | | PATHOLOGY | | + +-------+ + + + | EOS # | 0.2 | <0.6 K/cu mm | [facility] | | | | | | DEPARTMENT | | | | | | OF | | | | | | PATHOLOGY | | + +-------+ + + + | BASO # | 0.1 | <0.3 | [facility] | | | [...] | [facility] DEPARTMENT OF | [address] | [place] [address] | | | PATHOLOGY | [address] | | | + + + + + | [facility] DEPARTMENT OF | [address] | [place] [address] | | | PATHOLOGY | [address] | | | + + + + + CBC, WITH DIFFERENTIAL (07/24/2005 5:03 PM PST) + +-------+ + + + | Component | Value | Ref Range | Performed | Pathologist | | | | | At | Signature | + +-------+ + + + | WHITE CELL | 7.9 | 4.4 - 11.0 K/cu | [facility] | | | COUNT | | mm | DEPARTMENT | | | | | | OF | | | | | | PATHOLOGY | | + +-------+ + + + | RED CELL | 4.73 | 4.00 - 5.20 | [facility] | | | COUNT | | M/cu mm | DEPARTMENT | | | | | | OF | | | | | | PATHOLOGY | | + +-------+ + + + | HEMOGLOBIN | 14.8 | 12.0 - 16.0 | [facility] | | | | | g/dL | DEPARTMENT | | | | | | OF | | | | | | PATHOLOGY | | + +-------+ + + + | HEMATOCRIT | 43.6 | 36.0 - 46.0 % | [facility] | | | | | | DEPARTMENT | | | | | | OF | | | | | | PATHOLOGY | | + +-------+ + + + | MCV | 92.2 [...] +-------+ + + + | PLATELET | 266 | 150 - 400 K/cu | [facility] [...] | + + + + + | [facility] | [address] | [place] [address] | | | PATHOLOGY | [address] | | | + + + + + | [facility] | [address] | [place] [address] | | | PATHOLOGY | [address] | | | + + + + + PROTHROMBIN TIME (07/24/2005 5:03 PM PST) + + + + + + | Component | Value | Ref Range | Performed | Pathologist | | | | | At | Signature | + + + + + + | INR | 0.97Comment: | 0.90 - 1.20 INR | [facility] [...] | + + + + + | [facility] DEPARTMENT OF | [address] | [place] [address] | | | PATHOLOGY | [address] | | | + + + + + | [facility] DEPARTMENT OF | [address] | [place] [address] | | | PATHOLOGY | [address] | | | + + + + + APTT (ACT. PART. THROMBO TIME) (07/24/2005 5:03 PM PST) + + + + + + | Component | Value | Ref Range | Performed | Pathologist | | | | | At | Signature | + + + + + + | APTT | 28.1Comment: | 26.0 - 36.0 | [facility] | | | | APTT Therapeutic Range | seconds | DEPARTMENT | | | | | | OF | | | | | | PATHOLOGY | | | | (75-120)sec | | | | | | Heparin levels | | | | | | of 0.35-0.7 U/mL | | | | + + + + + + + + | Specimen | + + | | + + + + + + + | Performing | Address | City/State/Zipcode | Phone Number | | Organization | | | | + + + + + | [facility] | [address] | [place] [address] | | | PATHOLOGY | [address] | | | + + + + + | [facility] DEPARTMENT OF | [address] | [place] [address] | | | PATHOLOGY | [address] | | | + + + + + documented in this encounter Visit Diagnoses Not on filedocumented in this encounter"
--- OUTSIDE RECORDS SUMMARY | ~2020-02-29 | XMS | Encounter Summary ---
Demographics + + + | Address | [address] | | | [place] [address] | + + + | Home Phone | | + + + | Preferred Language | Unknown | + + + | Marital Status | | + + + | Mormonism Affiliation | 1001 | + + + | Race | White | + + + | Ethnic Group | Not or | + + + Author + + + | Author | [facility] | | | and [place] | + + + | Organization | [facility] | | [...] Team Providers + +------+ + | Care Olericulture Professor Name | Role | Phone | + +------+ + PCP | Unavailable | + +------+ + Encounter Details +--------+ + + + + | Date | Type | Department | Care Team | Description | +--------+ + + + + | 08/11/ | Hospital | [facility] | Ruben Tobias | | | 2001 | Encounter | MED CTR SLEEP | MD Raji [address] | | | | | [place] [address] | [address] [place] | | | | | [place], [place] | [place] [address] | | | | | [address] | [phone] | | | | | [phone] | | | +--------+ + + + [...] [address] | | | | | | [place] [address] | | | | | | [phone] | | | | | | | | +--------+---------+ + + + documented as of this encounter Visit Diagnoses Not on filedocumented in this encounter"
--- OUTSIDE RECORDS SUMMARY | ~2020-02-29 | XMS | Encounter Summary ---
Demographics + + + | Address | [address] | | | [place] [address] | + + + | Home Phone [...] Team Providers + +------+ + | Care Retail Business Manager Name | Role | Phone | [...]
--- OUTSIDE RECORDS SUMMARY | ~2020-02-29 | XMS | Encounter Summary ---
Demographics + + + | Address | [address] | | | [place] [address] | + + + | Home Phone [...] Team Providers + +------+ + | Care Weighmaster Name | Role | Phone | + [...] | +--------+ + + + + | 05/19/ | Telephone | [facility] | Chris Padgett, | Dehydration | | 2007 | | Center [address] | [address] | | | | | [place] Mailcode: CH4S | Naeem [address]rae | | | | | [facility] | [place], [place] | | | | | and Healing, | [address] | | | | | [facility], [facility] | [phone] | | | | | Floor [place], [place] | | | | | | [address] | | | | | | [phone] | | | +--------+ + + + [...] Notes Telephone Encounter - Zachary Sampson - 12/29/2011 10:39 AM PDTThis encounter has been admin istratively closed with the authorization of the [facility] Committee. elephone Encounter - Ju Hill - 11/01/2007 8:04 AM PDTPatient moved up her 6 mos f/u appointment from December o soonest available, 11-25-07 with Macarena. Patient seen in ED recently for dehydration in [place], [place]. Patient requesting call from nurse and possible work in sooner. Patient appro ves confidential and detailed messages left on answering machine and voicemail. documented in this encoun ter Plan of Treatment Not on filedocumented as of this encounter Visit Diagnoses Not on filedocumented in this encounter"
--- OUTSIDE RECORDS SUMMARY | ~2020-02-29 | XMS | Encounter Summary ---
Demographics + + + | Address | [address] | | | [place] [address] | + + + | Home Phone [...] Team Providers + +------+ + | Care Correspondence Analyst Name | Role | Phone | [...] + + | 10/18/ | Office | Rheumatology at | [facility], | Fibromyalgia | | 2007 | Visit | [facility] [address] | SECURITIES UNDERWRITER | syndrome 729.1 | | | | [address] | | (Primary Dx); | | | | Physician's | | Fibromyalgia | | | | Pavilion, [address] Floor | | | | | | [place], [place] | | | | | | [address] | | | | | | [phone] | | | +--------+---------+ + + + [...] + | Blood Pressure | 100/60 | 10/19/2007 8:46 AM | | | | | PDT | | + + + + + | Pulse | 78 | 10/19/2007 8:46 AM | | | | | PDT [...] + + | Weight | 88 kg (194 lb) | 10/19/2007 8:46 AM | | | | | PDT | | + + + + + | Height | - | - | | + + + + + | Body Mass Index | 28.65 | 08/24/2007 1:00 PM | | | | | PDT | | + + + + + documented in this encounter Patient Instructions Patient Instructions Caitlin Rivera - 10/19/2007 9:14 AM PDTDiscussed a trial of geodon. I t is an atypical antipsychotic and at low doses may have a beneficial D2 autoreceptor effect that leads to better dopamine neurotransmission for pain inhibition. It has been remarkably good for some patients with ptsd/depression type issues for reducing pain. She can take a c apsule, open it and use 1/4 of the granules at hs. She may titrate up to 2 pills at bedtime as tolerated. She may remove a few granules and place them on the tongue, one patient notes pain reduction in 10-15 minutes with this. Electronically signed by Caitlin Rivera at 008 9:14 AM PDT documented in this encounter Progress Notes Caitlin Rivera - 10/20/2007 11:22 AM PDT And Subjective: I periodically see Belinda Meehan for Fibromyalgia. She had her second knee replacement, and iIt has gone well. She has had no improvement in her fibromyalgia pain, h owever. She continues to have a great deal of pain through to the trapezius and periscapular areas, . low back and her knee is still painful, but less so than prior to surgery.lShe would like trigger point injections today. Pain: 03/24 Fatigue: 02/22 Current outpatient medications Medication CALCIUM 600 WITH VITAMIN D OR Cyanocobalamin 1,000 mcg/mL Injection Syringe Docusate Sodium 100 mg Oral Tablet Ferrous Sulfate 325 (65) mg Oral Tablet Furosemide (LASIX) 80 mg OR TABS LEVOTHYROXINE OR Multivitamin Oral Tablet omeprazole magnesium (PRILOSEC OTC) 20 mg Oral Tablet, Delayed Release (E.C.) Oxycodone HCl (OXYCONTIN) 40 mg Oral Tablet Sustained Release 12 hr Oxycodone HCl 5 mg Oral Tablet POTASSIUM CHLORIDE SR 20 MEQ TAB, PARTICLES/CRYSTALS Procaine HCl 1 % Injection Solution promethazine 25 mg Oral Tablet propranolol CR (INDERAL LA) 160 mg Oral Capsule,Sustained Action 24 hr riserdronate (ACTONEL) 35 mg Oral Tablet VITAMIN C 500 MG CHEWABLE TAB ziprasidone (GEODON) 20 mg Oral Capsule Physical Exam: BP 100/60 | Pulse 78 | Wt 87.998 kg (194 lbs) Tender gland special trigger points in the bilateral upper trapezius,. levator scapulas, an d rhomboids at T7. Impression and Plan: 1. We did trigger point injections using 0.5% procaine, for a total of 6 cc in the muscles listed above. The injections were well tolerated. 2.Discussed a trial of geodon. It is an atypical antipsychotic and at low doses may have a beneficial D2 autoreceptor effect that leads to better dopamine neurotransmission for pain i nhibition. It often seems to calm central sensitivity. It has been remarkably good for jeni e patients with ptsd/depression type issues for reducing pain. She can take a capsule, open it and use 1/4 of the granules at hs. She may titrate up as tolerated 21 to two pills at bed time. She may remove a few granules and place them on the tongue, one patient notes pain red uction in 10-15 minutes with this. She will know within two to 3 weeks if it is useful, and she will simply stop she has adverse effects. She has no diabetes, and I do not think a low dose will cause any metabolic problems. If she finds 40 mg as useful. We will check her tr iglycerides at the next visit. Orders Placed This Encounter GEODON 20 MG CAP Lew colin in this encounter Plan of Treatment + + +--------+ + + | Name | Type | Priori | Associated Diagnoses | Order Schedule | | | | ty | | | + + +--------+ + + | MI INJECT TRIGGER | Procedures | Routin | Fibromyalgia | Ordered: 10/20/2007 | | POINT, 1 OR 2 | [...]
--- OUTSIDE RECORDS SUMMARY | ~2020-02-29 | XMS | Encounter Summary ---
Demographics + + + | Address | [address] | | | [place] [address] | + + + | Home Phone | | + + + | Preferred Language | Unknown | + + + | Marital Status | Single | + + + | [employer] Affiliation | ADV | + + + [...] Team Providers + +------+ + | Care Nuclear Medicine Physician Name | Role | Phone [...]
--- OUTSIDE RECORDS SUMMARY | ~2020-02-29 | XMS | Encounter Summary ---
Demographics + + + | Address | [address] | | | [place] [address] | + + + | Home Phone [...] + +------+ + | Care [employer] Special Education Teacher Name | Role | Phone | [...] [address] [place], | [address] [facility] | left-sided sciatica | | | | [place] [address] | [place] [address] | (Primary Dx) | | | | [phone] | [phone] | | | | | | | [...] | | | | | | [place] [address] | | | | | | [phone] | | | | | | | [...]
--- OUTSIDE RECORDS SUMMARY | ~2020-02-29 | XMS | Encounter Summary ---
Demographics + + + | Address | [address] | | | [place] [address] | + + + | Home Phone [...] Team Providers + +------+ + | Care Baker Second Name | Role | Phone | + [...] | | | [facility] | [place], [place] | | | | | [address] | [address] | | | | | [address] | [phone] | | | | | Physician's | | | | | | Pavilion, 1st floor | | | | | | [place], [place] | | | | | | [address] | | | | | | [phone] | | | +--------+ + + + [...]
--- OUTSIDE RECORDS SUMMARY | ~2020-02-29 | XMS | Encounter Summary ---
Demographics + + + | Address | [address] | | | [place] [address] | + + + | Home Phone | | + + + | Preferred Language | Unknown | + + + | Marital Status | | + + + | Mosque Affiliation | 1001 | + + + | Race | White | + + + | Ethnic Group | Not or | + + + Author + + + | Author | [facility] | | | and [place] | + + + | Organization | [facility] | | | [...] Team Providers + +------+ + | Care Dairy Bacteriologist Name | Role | Phone | + [...] | | allergies | [place] | [address] | | | | | [address] | [place] | | | | | | [address] | [address] | | | | | | [place], | Phone: | | | | | | [place] | [phone] | | | | | | [address] | | | | | | | Phone: | | | | | | | [phone] | | | | | | | Fax: | | | | | | | [phone] | | +--------+ + + + + + Encounter Details +--------+ + + + + | Date | Type | Department | Care Team | Description | +--------+ + + + + | 06/18/ | Orders Only | [facility] | [place], | Multiple food | | 2019 | | MEDICINE [address] | MD [place] | allergies (Primary | | | | [address] [place], | [address] [place] | Dx) | | | | [place] [address] | [place] [address] | | | | | [phone] | [phone] | | | | | | | [...] | | | | | [place] [address] | | | | | | [phone] | | | | | | | | +--------+---------+ + + + + + +--------+ + + | Name | Type | Priori | Associated Diagnoses | Order Schedule | | | | ty | | | + + +--------+ + + | [place] | Outpatient | Routin | Multiple food [...]
--- OUTSIDE RECORDS SUMMARY | ~2020-02-29 | XMS | Encounter Summary ---
Demographics + + + | Address | [address] | | | [place] [address] | + + + | Home Phone [...] Author | [facility] | + + + | Organization | [facility] | + + + | Address | [...] Team Providers + +------+ + | Care Photoresist Contact Printer Name | Role | Phone | + [...] | | | [facility] | [place], [place] | | | | | [address] | [address] | | | | | [address] | [phone] | | | | | Physician's | | | | | | Pavilion, [facility] floor | | | | | | [place], [place] | | | | | | [address] | | | | | | [phone] | | | +--------+ + + + [...] | | | | | performed at [facility] | | | | [facility] [...] + + + | [facility] | [address] | [place] [address] | | | LABORATORY | | | [...] | + + + + + | [facility] | [address] | [place] [address] | | | LABORATORY | | | [...] | | | performed by Colin | Naomi[facility]/ml | | | | | [facility] | | | | | | Laboratories. | | | | + + + + + + + + | Specimen | + + | | + + + + + + + | Performing | Address | City/State/Zipcode | Phone Number | | Organization | | | | + + + + + | [facility] | [address] | [place] [address] | | | LABORATORY | | | [...] | | | SERUM | performed by Colin | | | | | | [facility] | | | | | | Laboratories. | | | | + + + + + + + + | Specimen | + + | | + + + + + + + | Performing | Address | City/State/Zipcode | Phone Number | | Organization | | | | + + + + + | [facility] | [address] | [place] [address] | | | LABORATORY | | | [...] | + + + + + | [facility] | [address] [facility] | [place] [address] | | | PATHOLOGY | [address] | | | + + + + + | [facility] | [address] [place] [address] | [place] [address] | | | PATHOLOGY | [address] [...] DEPARTMENT OF | [address] | [place] [address] | | | PATHOLOGY | [address] | | | + + + + + | [facility] | [address] | [place] [address] | | | PATHOLOGY | [address] | | | + + + + + documented in this encounter Visit Diagnoses Not on filedocumented in this encounter"
--- OUTSIDE RECORDS SUMMARY | ~2020-02-29 | XMS | Encounter Summary ---
Demographics + + + | Address | [address] | | | [place] [address] | + + + | Home Phone | | + + + | Preferred Language | Unknown | + + + | Marital Status | | + + + | Church Affiliation | 1001 | + + + | Race | White | + + + | Ethnic Group | Not or | + + + Author + + + | Author | [facility] | | | and [place] | + + + | Organization | [facility] | | [...] Team Providers + +------+ + | Care Insulating Machine Operator Name | Role | Phone | + +------+ + | Petrona Thapa | PCP | | | MD | | | + +------+ + Reason for Visit + +--------+ + | Reason | Onset | Comments | | | Date | | + +--------+ + | Referral | 05/14/ | | | | 2017 | | + +--------+ + Encounter Details +--------+ + + + + | Date | Type | Department | Care Team | Description | +--------+ + + + + | 05/14/ | Telephone | [facility] | Alanis, | Referral | | 2017 | | MEDICINE [address] | MD Petrona | | | | | [place], | [address] [facility] | | | | | [place] [address] | [place] [address] | | | | | [phone] | [phone] | | | | | | | [...] this encounter Miscellaneous Notes Telephone Encounter - Lisa Hurley RN - 05/14/2018 4:17 PM PSTCalled and spoke with kraig priest about her back issue. She says the pain is getting worse and the ability to stand for very long has worsened. She says she can only stand about 2 minutes. She says the pain goes down both legs now. I i nformed her that Dr. Booth was out this afternoon and that she could discuss getting an MRI at her appointment with him on Thursday.Electronica lly signed by Lisa Hurley RN at 05/14/2018 4:21 PM PSTTelephone Encounter - Ayla Quezada - 05/14/2018 2:45 PM PSTPatient called in to see if provider will put in a referr al for an MRI for her back and legs due to not being able to walk or stand. She stated she h as an appointment on 05/17/2018 and would like to see if she could have MRI done when she co mes in town for her appointment. Please advise [phone] documented in this encounter Plan of Treatment +--------+---------+ + + + | Date | Type | Specialty | Care Team | Description | +--------+---------+ + + + | 05/17/ | Office | Internal Medicine | Alanis, | | | 2019 | Visit | | MD Petrona | | | | | | [address] | | | | | | [place] [address] | | | | | | [phone] | | | | | | | | +--------+---------+ + + + documented as of this encounter Visit Diagnoses Not on filedocumented in this encounter"
--- OUTSIDE RECORDS SUMMARY | ~2020-02-29 | XMS | Encounter Summary ---
Demographics + + + | Address | [address] | | | [place] [address] | + + + | Home Phone [...] Team Providers + +------+ + | Care Skate Hop Name | Role | Phone | + +------+ + | Pedrito Gutierrez MD | PCP | | + +------+ + Reason for Visit + +--------+ + | Reason | Onset | Comments | | | Date | | + +--------+ + | Follow-up visit | 11/24/ | | | | 2006 | | + +--------+ + Encounter Details +--------+---------+ + + + | Date | Type | Department | Care Team | Description | +--------+---------+ + + + | 11/24/ | Office | [facility] | Lukasz Charles, | Major Depressive | | 2006 | Visit | [address] | PhD [address] | Disorder, Recurrent | | | | [facility] | [place], [place] | Episode, Moderate | | | | and Healing, | [address] | ([facility]); 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 female with head, abdominal, back, and leg pain. She has sym ptoms of depression and anxiety along with her pain. She reported being disappointed with h er niece's visit. She got to spend very little time with her niece and the niece, her maynore r, and her sister had to leave early because of a conflict with the sister's boyfriend. Ms. Meehan was not able to spend the time she had planned with her niece and she has been sad since the visit. We discussed upcoming activities. She will be watching her grand nephews much of the summer and will be busy with them. She has few specific plans. We discussed benefits of plans and goals. We discussed how winter is more difficult for her than amando r. We decided to schedule follow-up in 3 months to plan for the winter months. Ms. Meehan has ongoing depression and frustration. She is not suicidal. She has been sad since her niece left. She has using some good self-care skills. She needs to make some pl ans for more activity. Diagnosis: Adkins I: 1. (296.32) Major depressive disorder, recurrent, moderate. 2. (309.24) Adjustment disorder with anxiety. 3. 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 Adkins II: Deferred Adkins III: abdominal pain, migraine headache, low back pain. Adkins IV: low finances Adkins V: GAF 55-60 Plan: Return in 2 weeks. Check mood, pacing, relaxation, activity, distraction. Continue cognit gerda/behavioral therapy. Set goals for summer activity. Total time spent with patient was approximately 45 minutes. LUKASZ CHARLES PHD [facility] [address] [facility], 4th [place] [address] documented in this [facility] Plan of Treatment + + +--------+ + + | Name | Type | Priori | Associated Diagnoses | Order Schedule | | | | ty | | | + + +--------+ + + | [facility]YCHOTHERPY, | Procedures | Routin | Major Depressive | Ordered: 11/24/2006 | | OFFICE (14-02) | | e | Disorder, Recurrent | | | | | | Episode, Moderate | | | | | | ([facility]) Spondylosis | | | | | [...]
--- OUTSIDE RECORDS SUMMARY | ~2020-02-29 | XMS | Encounter Summary ---
Demographics + + + | Address | [address] | | | [place] [address] | + + + | Home Phone [...] Team Providers + +------+ + | Care Barker Operator Name | Role | Phone | + +------+ + | Petrona Thapa | PCP | | | MD | | | + +------+ + Reason for Visit +---------+ + | Reason | Comments | +---------+ + | Post Op | Carpal tunnel right, possible infection. | +---------+ + Encounter Details +--------+---------+ + + + | Date | Type | Department | Care Team | Description | +--------+---------+ + + + | 01/17/ | Office | [facility] | Alanis, | Surgical wound | | 2019 | Visit | MEDICINE [address] | MD Petrona | infection (Primary | | | | [address] [place], | [address] [place] | Dx) | | | | [place] [address] | [place] [address] | | | | | [phone] | [phone] | | | | | | | [...] + | Blood Pressure | 100/70 | 01/17/2019 9:53 AM | | | | | PDT | | + + + + + | Pulse | 60 | 01/17/2019 9:53 AM | | | | | PDT | | + + + + + | Temperature | 36.3 C (97.3 F) | 01/17/2019 9:53 AM | | | | | PDT | | + + + + + | Respiratory Rate | 16 | 01/17/2019 9:53 AM | | | | | PDT | | + + + + + | Oxygen Saturation | 96% | 01/17/2019 9:53 AM | | | | | PDT | | + + + + + | Inhaled Oxygen | - | - | | | Concentration | | | | + + + + + | Weight | 90.3 kg (199 lb 1.2 | 01/17/2019 9:53 AM | | | | oz) | PDT | | + + + + + | Height | 172.7 cm (5' 8") | 01/17/2019 9:53 AM | | | | | PDT | | + + + + + | Body Mass Index | 30.27 | 01/17/2019 9:53 AM | | | | | PDT | | + + + + + documented in this encounter Progress Petrona Riojas MD - 01/17/2019 10:00 AM PDTFormatting of this note might be d ifferent from the original. CHIEF COMPLAINT Chief Complaint Patient presents with Post Op Carpal tunnel right, possible infection. HPI Belinda Meehan is a 58 y.o. y/o female who presents today for several issues: Pt is here post op right hand carpal tunnel surgery. This morning she took a shower and sca b on her hand ripped off, which caused a lot of bleeding. Stitches [place] . Area is swelling with redness and warmth. She has been using antibiotic ointment on wound. There is no numbness or tingling in her hand. No feer or chills. REVIEW OF SYSTEMS Review of Systems Constitutional: Negative. HENT: Negative. Eyes: Negative. Respiratory: Negative. Cardiovascular: Negative. Gastrointestinal: Negative. Endocrine: Negative. Genitourinary: Negative. Musculoskeletal: Negative. Skin: Positive for wound. Neurological: Negative. Psychiatric/Behavioral: Negative. PAST MEDICAL HISTORY Past Medical History: Diagnosis Date Anemia Anxiety Arthritis Atypical chest pain Benign essential hypertension Blind left eye Cervical radiculopathy Chronic bilateral low back pain with left-sided sciatica Chronic low back pain 01/04/2015 Chronic neck pain 01/04/2015 Chronic pain Chronic venous insufficiency Coccydynia Common migraine COPD (chronic obstructive pulmonary disease) ([facility]) Depression Diarrhea Dumping syndrome Fall at home Fatigue fracture of vertebra Fibromyalgia Full dentures GERD (gastroesophageal reflux disease) Glaucoma Hyperparathyroidism ([facility]) Hypothyroidism IBS (irritable bowel syndrome) Idiopathic scoliosis Leg edema Low back pain Lumbar postlaminectomy syndrome Lumbar radiculopathy primarily right 01/04/2015 Meniere syndrome Migraine with aura Migraines Muscle cramping Muscle spasm Myalgia Nausea Nonalcoholic hepatosteatosis Obesity Opioid dependence ([facility]) Orthostatic hypotension OLIVER (obstructive sleep apnea) Osteoarthritis, generalized Osteopenia Osteoporosis Palpitations Peripheral neuropathy Rheumatoid arthritis ([facility]) Right arm pain 01/04/2015 RLS (restless legs syndrome) S/P lumbar fusion 01/04/2015 Scoliosis Sleep apnea Spondylosis with myelopathy, lumbar region Stroke ([facility]) Syncope Tremor Type II or [...] Last attempt to quit: 04/15/2014 Years since quittin.7 Smokeless tobacco: Never Used Tobacco comment: stopped [...] ours as needed for Pain. Incontinence Supplies [facility] As directed 100 each 11 levoFLOXacin (LEVAQUIN) 500 mg tablet Take 1 tablet by mouth Daily for 5 days. 5 tablet 0 levothyroxine (SYNTHROID) 75 MCG tablet take 1 tablet by mouth every morning BEFORE KIERSTEN AKFAST 90 tablet 2 loperamide (IMODIUM) 2 mg capsule Take 2 capsules by mouth 3 times daily. 4 tablets AM 2 tablets PM 180 capsule 2 meclizine (ANTIVERT) 25 mg [...] Cla Maddie Thapa MD 1,000 mcg at 11/15/18 0945 ALLERGIES Allergies Allergen Reactions Ensure Diarrhea Food Diarrhea Lactose Ynizpyrmki-Pgz-Dqxo-Codeine Other (See Comments) Balance problems Codeine Sulfate Nausea Only Food Allergy Formula Diarrhea Ensure Levofloxacin Hives, Itching and Rash Butalbital Ropinirole Amitriptyline Hcl Other (See Comments) Confused and questionable for seizures Gocjjhbfzf-Fjzs-Gcqnjabp Hives and Rash Cephalexin Hives Ciprofloxacin Hives and Rash Clarithromycin Hives and Rash Clindamycin Hcl Hives and Rash Doxycycline Rash Duloxetine Other (See Comments) Migraines and nausea Ketorolac Hives Levofloxacin Hives and Rash Morphine Swelling Penicillins Hives and Rash Ropinirole Hcl Hives Sulfamethoxazole-Trimethoprim Hives and Rash Tramadol Hcl Nausea Only PHYSICAL EXAM VITAL SIGNS: BP 100/70 | Pulse 60 | Temp 36.3 C (97.3 F) (Temporal) | Resp 16 | Ht 1.727 m (5' 8") | Wt 90.3 kg (199 lb 1.2 oz) | LMP (LMP Unknown) | SpO2 96% | Breastfee ding? No | BMI 30.27 kg/m Constitutional: Well developed, Well nourished, No acute distress, Pleasant female. Cardiovascular: Regular rate & rhythm, No murmurs, No rubs, No gallops. No lower extremitie s edema. Thorax & Lungs: Normal chest, No respiratory distress, No crackles, wheezing, or rubs. Skin: Surgical wound from recent carpal tunnel release in her right hand looks fine except in the wrist area where the surgical wound margins are by about 5 mm of space, no active drainage, there is some surrounding erythema which is not severe. Neurologic: Alert & oriented x 3, Normal motor function, Normal sensory function, No focal deficits noted. Psychiatric: Affect normal, Judgment normal, Mood normal. ASSESSMENT & PLAN 1. Surgical wound infection -Patient has multiple antibiotic allergies including severe allergies to penicillin and pen icillin-like antibiotics as well as sulfa antibiotics and clindamycin. She has tolerated Le vaquin in the past even though she is listed as being allergic to ciprofloxacin and we verif ied that today with her pharmacy. - levoFLOXacin (LEVAQUIN) 500 mg tablet; Take 1 tablet by mouth Daily for 5 days. Dispense : 5 tablet; Refill: 0 -The wound was also cleaned by nursing staff today and Tegaderm was placed over it to keep it clean. FOLLOW-UP Return in about 1 month (around 02/17/2019). Note: Parts of this documentwere created using In[employer] speech recognition software. As a r esult, there may be unintended word spelling errors. Every attempt was made to correct the dictation. doculeida colin in this encounter Plan of Treatment +--------+---------+ + + + | Date | Type | Specialty | Care Team | Description | +--------+---------+ + + + | 05/17/ | Office | Internal Medicine | Alanis, | | | 2019 | Visit | | MD Petrona | | | | | | [address] [place] [address] | | | | | | [place] [address] | | | | | | [phone] | | | | | | | | +--------+---------+ + + + documented as of this encounter Visit Diagnoses + + | Diagnosis | + + | Surgical wound infection - Primary Other postoperative infection | + + documented in this encounter
--- OUTSIDE RECORDS SUMMARY | ~2020-02-29 | XMS | Encounter Summary ---
Demographics + + + | Address | [address] | | | [place] [address] | + + + | Home Phone [...] Providers + +------+ + | Care Candy Rolling Machine Operator Name | Role | Phone [...] | | | | [place], | [address] | | | | | | [place] | Phone: | | | | | | [address] | [phone] | | | | | | Phone: | Fax: | | | | | | [phone] | [phone] | | | | | | Fax: | | | | | | | [phone] | | +--------+ + + + + + Reason for Visit +--------+ + | Reason | Comments | +--------+ + | Other | bladder/ bowel issues | +--------+ + Encounter Details +--------+---------+ + + + | Date | Type | Department | Care Team | Description | +--------+---------+ + + + | 10/15/ | Office | [facility] | Alanis, | Mixed stress and | | 2017 | Visit | MEDICINE [address] [place] [address] | MD Petrona | urge urinary | | | | ISMAELE GABRIEL GABRIEL, | [address] [place] [address] | incontinence | | | | [place] [address] | [place] [address] | (Primary Dx); OLIVER | | | | [phone] | [phone] | (obstructive sleep | | | | [...] (See Comments) Confused and questionable for seizures Dpstmghezb-Ytoq-Vgehlosz Cephalexin Hives Duloxetine Migraines and nausea Ketorolac Hives Morphine Swelling Ropinirole Hcl Hives Tramadol Hcl Nausea Only Sumjsdgwbv-Iclt-Qzzizhhp Hives and Rash Ciprofloxacin Hives and Rash [...] symptoms warrant a GI consult. - * [facility] Gastroenterology - AMB Referral; Future 5. S/P gastric bypass - * [facility] Gastroenterology - AMB Referral; Future 6. Nausea - ondansetron (ZOFRAN ODT) 4 mg disintegrating tablet; Take 1 tablet by mouth every 6 hours . Dispense: 120 tablet; Refill: 3 FOLLOW-UP Return in about 3 months (around 01/15/2018). Note: Parts of this documentwere created using Punchd speech recognition software. As a r esult, there may be unintended word spelling errors. Every attempt was made to correct the dictation. Anastasia Fajardo LPN - 10/15/2017 10:45 AM PDTFormatting of [...] Petrona | | | | | | [address] [place] [address] | | | | | | [place] [address] | | | | | | [phone] | | | | | | | [...] | | | | First dose on [facility] 10/15/17 at 1215 | | | | [...]
--- OUTSIDE RECORDS SUMMARY | ~2020-02-29 | XMS | Encounter Summary ---
Demographics + + + | Address | [address] | | | [place] [address] | + + + | Home Phone [...] Team Providers + +------+ + | Care Air Export Coordinator Name | Role | Phone | [...] | Otolaryngolog | Diagnoses | | Ulysses sDouza | | | | y | Fluid in | Emmy-Tajt | EMD [address] | | | | | ears/self/Fa | i, | [address] | | | | | milycare | Sulaiman-Russell | [address] [place] | | | | | Medicare/Ion | MD [address] | [place] | | | | | escu | [address] | [address] Phone: | | | | | Procedures | [place], | [phone] | | | | | OFFICE VISIT | [place] | Fax: | | | | | REGULAR | [address] | [phone] | | | | | | Phone: | | | | | | | [phone] | | | | | | | Fax: | | | | | | | [phone] | | +--------+--------+ + + + + Encounter Details +--------+---------+ + + + | Date | Type | Department | Care Team | Description | +--------+---------+ + + + | 12/07/ | Office | [facility] | Ulysses Dsouza MD | BPPV (benign | | 2015 | Visit | OTOLARYNGOLOGY [address] | [address] [place] | paroxysmal | | | | [address] | [address] [place], [place] | positional vertigo), | | | | [place], [place] | [address] | left (Primary Dx); | | | | [address] | | Vertigo of central | | | | [phone] | | origin, left | +--------+---------+ + [...] MD - 12/07/2014 1:48 PM PDT [facility] [address] [place] [address] OFFICE NOTE ULYSSES DSOUZA MD Patient: BELINDA MEEHAN Admitting: MR #: [id number] LOC: PT TYPE: Adm Date: 12/07/2014 : 1960 DATE OF VISIT: 12/07/2014. The patient is having a tremendous problem with her balance. At times she gets a spinning type sensation, other times she just tends to fall down and recently she has developed a w rist drop on the right arm. She has seen an orthopedist who put her in a splint. The [facility] ent has completed an MRI scan and [...] there is a question of a med dch regional medical centertion involvement. The patient would repeatedly ask the [...] 12/07/2014 13:48:42 Transcribed on 12/08/2014 04:46:49 by [facility] job# [id number] Confirmation #: [id number] signed by Ulysses Dsouza MD at 12/08/2014 8:52 AM Ulysses Arnold MD - 12/07/2014 1:43 PM PDTSee dictation #[id number] signed by Dmitriy Dsouza MD at 12/07/2014 1:49 PM PDTdocumented in this encounter Plan of Treatment +--------+---------+ + + + | Date | Type | Specialty | Care Team | Description | +--------+---------+ + + + | 05/17/ | Office | Internal Medicine | Alanis, | | | 2019 | Visit | | MD Petrona | | | | | | [address] [facility] | | | | | | [place] [address] | | | | | | [phone] | | | | | | | | +--------+---------+ + + + documented as of this encounter Visit Diagnoses + + | Diagnosis | + + | BPPV (benign paroxysmal positional vertigo), left - Primary | + + | Vertigo of central origin, left | + + documented in this encounter
--- OUTSIDE RECORDS SUMMARY | ~2020-02-29 | XMS | Encounter Summary ---
Demographics + + + | Address | [address] | | | [place] [address] | + + + | Home Phone | | + + + | Preferred Language | Unknown | + + + | Marital Status | | + + + | Christianity Affiliation | 1001 | + + + [...] Providers + +------+ + | Care Chief Airline Radio Operator Name | Role | Phone | + +------+ + | Petrona Thapa | PCP | | | MD | | | + +------+ + Reason for Visit + +--------+ + | Reason | Onset | Comments | | | Date | | + +--------+ + | Medication Refill | 08/31/ | | | | 2017 | | + +--------+ + Encounter Details +--------+--------+ + + + | Date | Type | Department | Care Team | Description | +--------+--------+ + + + | 08/31/ | Refill | [facility] | Alanis, | Medication Refill | | 2017 | | [facility] [address] | MD Petrona | | | | | [place], | [address] [place] | | | | | [place] [address] | [place] [address] | | | | | [phone] | [phone] | | | | | | | [...] Telephone Encounter - Maggie Montoya LPN - 08/31/2017 5:38 PM PDTLast office visit: 08/18/17 No upcoming appt scheduled elephone Encounter - Malissa Redd - 08/31/2017 4:38 PM PDTMedication: Gabapentin Strength: 300mg Directions: 4 tablets 3 times daily Quantity: unknown Pharmacy: [facility] in [place] Call/Mail/Materials Planner/Production Planner/Fax: client application support specialist Date of Last Refill: 07/25/17 Date of Last Visit: 07/16/17 Date of Next Visit: NA Patient said she is on her last bottle? Electronically signed by Malissa Redd at 018 4:42 PM PDTdocumented in this encounter Plan of Treatment +--------+---------+ + + + | Date | Type | Specialty | Care Team | Description | +--------+---------+ + + + | 05/17/ | Office | Internal Medicine | Alanis, | | | 2019 | Visit | | MD Petrona | | | | | | [address] [place] [address] [place] | | | | | | [place] [address] | | | | | | [phone] | | | | | | | | +--------+---------+ + + + documented as of this encounter Visit Diagnoses + + | Diagnosis | + + | Chronic bilateral low back pain without sciatica | + + documented in this encounter"
--- OUTSIDE RECORDS SUMMARY | ~2020-02-29 | XMS | Encounter Summary ---
Demographics + + + | Address | [address] | | | [place] [address] | + + + | Home Phone [...] Providers + +------+ + | Care Sports Recruiter Name | Role | Phone | + [...] | | | [facility] | [place], [place] | | | | | [address] | [address] | | | | | [address] | [phone] | | | | | [facility] | | | | | | Physician's | | | | | | [facility] | | | | | | [place] [address] | | | | | | [phone] | | | +--------+ + + + [...] and numbers are as follows: Dr. Koby García:[phone] Dr. Adriana Sweet:[phone] fax:[phone] Dr. Eavristo Nichols:[phone] I am sorry I could only get one fax number. You can reach patient at [phone] and if not there then call [phone] documented in this encoun ter Plan of Treatment Not on filedocumented as of this encounter Visit Diagnoses Not on filedocumented in this encounter"
--- OUTSIDE RECORDS SUMMARY | ~2020-02-29 | XMS | Encounter Summary ---
Demographics + + + | Address | [address] | | | [place] [address] | + + + | Home Phone [...] Providers + +------+ + | Care Gas Check Pad Maker Name | Role | Phone | [...] + + | 02/17/ | Clinical | [facility] | Alanis, | Vitamin B12 | | 2017 | Support | MEDICINE [address] [place] [address] | MD Petrona | deficiency | | | | [place], | [address] [place] [address] | | | | | [place] [address] | [place] [address] | | | | | [phone] | [phone] | | | | | | | [...] | | | | | [place] [address] | | | | | | [phone] | | | | | | | [...] | | First dose on [facility] 10/15/17 at 1215 | | | [...]
--- OUTSIDE RECORDS SUMMARY | ~2020-02-29 | XMS | Encounter Summary ---
Demographics + + + | Address | [address] | | | [place] [address] | + + + | Home Phone [...] Team Providers + +------+ + | Care Cafeteria Clerk Name | Role | Phone | + +------+ + | Pedrito Gutierrez MD | PCP | | + +------+ + Reason for Visit + + + | Reason | Comments | + + + | New patient | | | consultation | | + + + | Migraine | | + + + Consultation (Routine) [...] | headache | [address] | [address] | | | | | Procedures | [facility] | [facility] | | | | | CONSULT TO | Rd | Health and | | | | | NEUROLOGY | [place], [place] | Healing, | | | | | | [address] | [address], | | | | | | Phone: | [facility] Floor | | | | | | [phone] | [place], [place] | | | | | | | [address] | | | | | | | Phone: | | | | | | | [phone] | | | | | | | Fax: | | | | | | | [phone] | +--------+--------+ + + + + Encounter Details +--------+---------+ + + + | Date | Type | Department | Care Team | Description | +--------+---------+ + + + | 10/10/ | Office | Neurology at | Taniya Guerrero, | Migraine Headache | | 2007 | Visit | [facility] & | | (Primary Dx) | | | | Healing [address] | | | | | | [facility] | | | | | | [facility] and Healing, | | | | | | Building | | | | | | Floor [place], [place] | | | | | | [address] | | | | | | [phone] | | | +--------+---------+ + + + [...] + + + | Blood Pressure | 107/66 | 03/24/2008 8:46 AM | | | | | PDT | | + + + + + | Pulse | 67 | 03/24/2008 8:46 AM | | | | | PDT | | + + + + + | Temperature | - | - | | + + + + + | Respiratory Rate | 18 | 03/24/2008 8:46 AM | | | | | PDT | | + + + + + | Oxygen Saturation | - | - | | + + + + + | Inhaled Oxygen | - | - | | | Concentration | | | | + + + + + | Weight | 87.5 kg (193 lb) | 03/24/2008 8:46 AM | | | | | PDT | | + + + + + | Height | - | - | | + + + + + | Body Mass Index | 28.5 | 03/03/2008 10:25 AM | | | | | PDT | | + + + + + documented in this encounter Progress Notes Taniya Guerrero - 03/24/2008 10:10 AM PDTFormatting of this note might be different from t jayashree gomez. Clinic Date: 03/24/2008 Clinic: [facility] Neurology Clinic Belinda Meehan is a 48 y.o. female referred here by Dr. Padgett for migraines. She has nguyen d migraines for 30 years. When they started, they were about once every 2 months. Since , they have gradually increased in frequency to currently 2-4 times per week. There is al so a milder daily headache that gets worse as the day goes on for the past year or so. She describes the migraines as usually one sided (the side varies), throbbing, with nausea, dry heaves (rarely vomiting), photophobia and phonophobia. Sometimes there is a visual aur a of seeing a while spot in the center of her vision for 1-2 minutes. In the past, she has tried Vicodin and was on Darvocet for years. Currently she is on Inde ral, but the dose has been decreased from 160 a day to 80 a day due to low blood pressure. She is seeing the [facility] pain clinic for back pain and fibromyalgia as well as headaches. Ac cording to their note, she has tried Neurotnin, Lyrica and Trileptal as well as Amitriptilin e. Currently, she is on 80 mg of OxyContin a day, 40-60 mg of Oxycodone per day and 10 Fiorice t a day. 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 She awoke one day unable to see out of her left eye. Vision now is there for some colors and shapes, stil l can't read. She apparently saw Dr. Amin here, but no note available on EPIC. On review of systems, she also notes: poor sleep, fever and chills, blurred vision, unbalan shannon walking, urinary dribbling and incontinence, easy bruising, joint pain and stiffness, an xiety, weakness and numbness in the right more than left leg, leg swelling, fatigue, and diz ziness. All other systems negative except as noted. 14 point review of systems form compl eted by patient and reviewed by myself during appointment. See patient form scanned into R. She saw the stroke clinic who noted normal brain MRIs in 1998 and 2000. Past Medical History Diagnosis Date Chronic Abdominal Pain on Oxycodone, NSAIDs, ASA RUQ u/s at OSH reportedly nl panc, bile ducts, liver; ct abd/pel normal, Colorectal Polyps Internal Hemorrhoid Benign Tumor of Colon 2006 endoscopy Vertebral Fracture T7,8,9 Xray T spine 2004 Optic Nerve Hemorrhage left eye Sleep Apnea Fibromyalgia Intervertebral Disc Herniation 03/31/07 Reduced Vision Pneumonia Abdominal Pain Hx of gastric bypass Other General Symptoms Headache Kidney Stone Current outpatient prescriptions Medication Sig aspirin chewable (BABY ASPIRIN) 81 mg Oral Tablet, Chewable 2 daily buPROPion XL (WELLBUTRIN XL) 300 mg Oral Tablet Sustained Release 24 hr take 1 tablet ( 300 mg) by oral route once daily wzhlelxmoh-gizhrnpjytipd-qorbvtvu (FIORICET) 50-325-40 mg Oral Tablet take 2 [...] mg) by oral route once daily INDERAL 80 mg Oral Tablet 1 tab daily levothyroxine 50 mcg Oral Tablet take 1 tablet (50 mcg) by oral route once daily MAGNESIUM 300 mg Oral Capsule 2 cap daily Multivitamin Oral Tablet 1 tab po bid nitroglycerin 0.4 mg Sublingual Tablet, Sublingual as needed for chest pain omeprazole magnesium (PRILOSEC OTC) 20 mg Oral Tablet, Delayed Release (E.C.) take 1 ta blet by mouth twice daily oxycodone CR (OXYCONTIN) 40 mg Oral Tablet Sustained Release 12 hr take 1 tablet (40 mg ) by oral route every 12 hours Oxycodone HCl 5 mg Oral Tablet take 2 tablets (10 mg) by oral route every 4-6 hours as needed for pain POTASSIUM CHLORIDE SR 20 MEQ TAB, PARTICLES/CRYSTALS take 1 tablet (20meq) by oral rout e once daily with food procaine 1 % Injection Solution procaine 0.5% promethazine 25 mg Oral Tablet as needed riserdronate (ACTONEL) 35 mg Oral Tablet take 1 tablet (35 mg) by oral route once weekl y in the morning, at least 30 minutes before the first food, beverage, or medication of the day sucralfate (CARAFATE) 1 gram Oral Tablet 1 tab four times daily as needed for abdominal pain VITAMIN C 500 MG CHEWABLE TAB four times a day vitamin E 400 unit Oral Capsule 2 cap daily Allergies: Keflex, Sulfa (sulfonamides), Codeine, Penicillins, Clindamycin, Cipro, Tramado l, Morphine and Clarithromycin Family History: Migraine in mother and 2 siblings. 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 Social History Main Topics Tobacco Use: Yes -- 1.0 packs/day for 30 years one pack in five days Alcohol Use: No Drug Use: No Sexually Active: No Other Topics Concern Not on file Social History Narrative No narrative on file Physical Examination: Vital Signs: BP 107/66 | Pulse 67 | Resp 18 | Wt 87.544 kg (193 lb) General: The patient looks her stated age. She is no apparent physical stress. She has no s peech or language problems. Cardiac: Regular rate and rhythm. Lungs: Clear. Skin: Normal. Neurologic: Cranial Nerve 2: Pupils are equally reactive to light. Visual payan are intact . Cranial nerves 3, 4, and 6: Extraocular muscles are normal. Cranial nerve 5: Sensation is intact to V1 through V3. Cranial nerve 7: Face is symmetric. Cranial nerve 10: Normal palate movement. Cranial nerve 12: Normal tongue movement. On motor examination,she has 5/5 strength bilaterally in the deltoid, Interossei, 4/5 Juanita opsoas, 5/5 dorsiflexion. Reflexes are 2+ symmetrically in the arms, trace knees and ankles. Sensory exam is intact throughout to light touch symmetrically throughout. Cerebellar testing shows normal bifqqf-bu-ildq and finger tapping. On gait testing, she has aa antalgic casual gait due to back pain and leg pain. She is able to walk on her heels and toes in tandem. She has a negative Romberg. Ancillary Studies: Lab Results Lab Test Name Results Date/Time TSH 1.30 02/29/08 MR CERVICAL SPINE WO CONTRAST (no units) Date Value 05/25/07 Radiologist 1: JALIL CROWE M.D. EXAM: MRI cervical spine without contrast Flexi on and Extension views HISTORY: Cervicalgia TECHNIQUE: Images through the cervical spine, 1. 0 Mary magnet, without contrast Sagittal T1 and T2 weighted images in the neutral position. Axial FSE T2, FFE T2, and balanced FFE T2 images through the cervical spine Sagittal T2 maida ges in flexion and extension. COMPARISON: No prior FINDINGS: Marrow signal is within normal limits. No cord signal abnormalities. Craniocervical junction unremarkable. C2/3: Unremark able C3/4: Minimal right-sided uncovertebral arthrosis with minimal narrowing of the right n eural foramen. C4/5: Mild right-sided uncovertebral arthrosis with mild narrowing of the rig ht neural foramen. C5/6: Minimal bilateral uncovertebral arthrosis without spinal stenosis o r foraminal stenosis. C6/7: Unremarkable C7/T1: Unremarkable Despite multiple scan attempts extension images are compromised by patient motion and thus accurate measurements cannot be obtained. Flex Neutral Extend C2/3: 1. 19 cm 1.11 cm cm C3/4: 1.27 cm 1.21 cm cm C4/5: 1.31 cm 1.29 cm cm C5/6: 1.27 cm 1.20 cm cm C6/7: 1.31 cm 1.24 cm cm C7/T 1: 1.23 cm 1.24 cm cm IMPRESSION: 1. Minimal uncovertebral a rthrosis primarily at C3-4, C4-5, and C5-6. Impression: Belinda Barnes is a 48 y.o. female with a 30 year history of headache. She is on si gnificant doses of daily narcotics. In addition, she is on 10 Fioricet a day, which contain s caffeine. She likely has rebound headaches on top of her migraine headaches. She has been on a variety of preventative medicines, but they haven't helped. Their effica cy is probably less given her continued use of pain medicines. She complains of poor sleep and in the past was on Amitriptiline, which helped. She may be nefit from going back on this once she can come off the Wellbutrin, which she is on for smok ing cessation (although she still smokes). Plan: Advised to come off Fioricet. Consider coming off Wellbutrin and going on Amitriptiline for sleep and migraine prevention . She was given information on nonpharmacologic treatment of migraine, including acupuncture, acupressure, biofeedback, massage, butterbur, riboflavin and feverfew. I also gave her the names of 3 headache specialists in [place]- Dr. Koby García, Dr. Dakota Sweet and Dr. Evaristo Nichols. No follow up was made with me. documented in this encou nter Miscellaneous Notes Scan - Other, Faculty - 04/06/2008 7:29 AM PDTAssociated Order(s): ORDERS OTHER Scotti mary carmen signed by Faculty Other at 03/24/2008 12:00 AM PDTScan - Other, Faculty - 04/04/2008 1 2:52 AM PDT docum ented in this encounter Plan of Treatment Not on filedocumented as of this encounter Procedures + +--------+ + + + | Procedure Name | Priori | Date/Time | Associated Diagnosis | Comments | | | ty | | | | + +--------+ + + + | ORDERS OTHER | | 04/06/2008 | | Results for this | | | | 7:29 AM | | procedure are in the | | | | PDT | | results section. | + +--------+ + + + documented in this encounter Results ORDERS OTHER (04/06/2008 7:29 AM PDT) + + + | Narrative | Performed At | + + + | | | + + + + + | Procedure Note | + + | Vilma Gibbons - 04/06/2008 7:29 AM PDT | + + documented in this encounter Visit Diagnoses + + | Diagnosis | + + | Migraine headache - Primary Migraine, unspecified, without mention of intractable | | migraine without mention of status migrainosus | + + documented in this encounter
--- OUTSIDE RECORDS SUMMARY | ~2020-02-29 | XMS | Encounter Summary ---
Demographics + + + | Address | [address] | | | [place] [address] | + + + | Home Phone [...] Providers + +------+ + | Care Senior Biostatistician Name | Role | Phone | + [...] | 01/17/ | Refill | [facility] | Alanis, | Medication Refill | | 2018 | | [facility] [address] | MD Petrona | | | | | [place], | [address] [place] | | | | | [place] [address] | [place] [address] | | | | | [phone] | [phone] | | | | | | | [...] | | | | | [place] [address] | | | | | | [phone] | | | | | | | | +--------+---------+ + + + documented as of this encounter Visit Diagnoses Not on filedocumented in this encounter"
--- OUTSIDE RECORDS SUMMARY | ~2020-02-29 | XMS | Encounter Summary ---
Demographics + + + | Address | [address] | | | [place] [address] | + + + | Home Phone [...] Author + + + | Author | [facility] | | | and [place] | + + + | Organization | [facility] | | [...] Team Providers + +------+ + | Care Hospital Clinic Assistant Name | Role | Phone | [...] + + | 05/04/ | Refill | [facility] | Alanis, | Medication Refill | | 2017 | | MEDICINE [address] | MD Petrona | | | | | [place], | [address] [facility] | | | | | [place] [address] | [place] [address] | | | | | [phone] | [phone] | | | | | | | [...] | | | | | [place] [address] | | | | | | [phone] | | | | | | | | +--------+---------+ + + + documented as of this encounter Visit Diagnoses Not on filedocumented in this encounter"
--- OUTSIDE RECORDS SUMMARY | ~2020-02-29 | XMS | Encounter Summary ---
Demographics + + + | Address | [address] | | | [place] [address] | + + + | Home Phone [...] Team Providers + +------+ + | Care Licensed Nurse Practitioner Name | Role | Phone | + +------+ + | Pedrito Gutierrez MD | PCP | | + +------+ + Encounter Details +--------+---------+ + + + | Date | Type | Department | Care Team | Description | +--------+---------+ + + + | 11/24/ | Office | Preoperative | 2, [facility] Senior Project Engineer [address] | Other Specified | | 2007 | Visit | Medicine Clinic at | [facility] [address] | Pre-Operative | | | | [facility] 4th Floor [address] | [place] [address] | Examination; | | | | [address] | | Hemorrhagic Disorder | | | | Mailcode: CH4S | | due to Intrinsic | | | | [facility] | | Circulating | | | | and Healing, | | Anticoagulants | | | | Building 1[address]4th [facility] | | | | | | [place], [place] | | | | | | [address] | | | | | | [phone] | | | +--------+---------+ + + + [...] | + + + + + | [facility] DEPARTMENT OF | [address] | [place] [address] | | | PATHOLOGY | [address] | | | + + + + + | [facility] | [address] | [place] [address] | | | PATHOLOGY | [address] [...] DEPARTMENT OF | [address] | [place] [address] | | | PATHOLOGY | [address] | | | + + + + + | [facility] DEPARTMENT OF | [address] | [place] [address] | | | PATHOLOGY | [address] [...] | + + + + + | [facility] | [address] [facility] | [place] [address] | | | PATHOLOGY | [address] | | | + + + + + | [facility] | [address] [facility] | [place] [address] | | | PATHOLOGY | [address] [...] Performed At | + + + | [id number] Estimated GFR > 60 mL/min/1.73 sq m if non- | [facility] | | Swedish [id number] Estimated GFR > 60 mL/min/1.73 sq m if | DEPARTMENT OF | | [place] GFR is estimated using the MDRD equation [...] | + + + + + | [facility] DEPARTMENT | [address] [facility] | [place] [address] | | | PATHOLOGY | [address] | | | + + + + + | [facility] | [address] [facility] | [place] [address] | | | PATHOLOGY | [address] [...] + + | Ordered by an | [facility] DEPT OF | | unspecified provider. Please click on view image for the detailed | CARDIOLOGY | | interpretation from [employer] results. | | |results. | | | | | + + + + + + + + | Performing | Address | City/State/Zipcode | Phone Number | | Organization | | | | + + + + + | [facility] DEPT OF | [address] | [place], [place] | | | CARDIOLOGY | [address] | [address] | | + + + + + | [facility] DEPT OF | [address] | [place], [place] | | | CARDIOLOGY | [address] | [address] | | + + + + + documented in this encounter Visit Diagnoses + + | Diagnosis | + + | Other specified pre-operative examination | + + | Hemorrhagic disorder due to intrinsic circulating anticoagulants | + + documented in this encounter
--- OUTSIDE RECORDS SUMMARY | ~2020-02-29 | XMS | Encounter Summary ---
Demographics + + + | Address | [address] | | | [place] [address] | + + + | Home Phone [...] Providers + +------+ + | Care Drill Press Operator Name | Role | Phone | [...] as of this encounter Progress Notes Interface, Freight Air Brake Fitter In 02/17/2006 3:[address] [address] or October 02, 2001 Pedrito Gutierrez M.D. [facility] [address] [place] [facility] [place] [address] RE: BELINDA MEEHAN MR #: [id number] Dear Dr. Gutierrez: I had the pleasure of seeing Belinda Meehan again the day before yesterday September 30, [...] the medical school and her home in [place], she agreed to follow up with you [...] questions or concerns. Sincerely, Issac Meeks M.D. cardiology fellow, Division of Endocrinology, Diabetes, and Clinical Fish Drier, Metabolic Disorders Clinic Ph#: [phone] PBD / [id number] / [id number] / [id number] / C: 10/13/2001 praful [id number] signed by Interface, Freight Air Brake Fitter In at 02/17/2006 3:04 AM [facility] this [facility] Plan of Treatment Not on filedocumented as of this encounter Visit Diagnoses Not on filedocumented in this encounter"
--- OUTSIDE RECORDS SUMMARY | ~2020-02-29 | XMS | Encounter Summary ---
Demographics + + + | Address | [address] | | | [place] [address] | + + + | Home Phone [...] Team Providers + +------+ + | Care Pit Hand Name | Role | Phone | [...] + + documented as of this encounter H&P Notes Interface, Kingsbury Machine Operator In - 11/19/2005 3:09 AM PDT Date of Admission 05/13/2003 History Attending Physician: Melisa Lake Chief Complaint: Desires bariatric surgery in order to live longer, healthier, to be able to get around easier, and to be off some of her medications. History of Present Illness: The patient is a 43-year-old woman with a height if 5 feet, 10 inches, weight 332.8 pounds and a calculated body mass index of 47 kg/m2. She is referred by Zachary Gutierrez M.D. from [place], [place], with an address of [address] [place] [address], phone number: [phone], fax number: [phone]. Her primary care physician supports her referral for bariatric surgery, as well as Dr. William Meeks in the metabolic disorders clinic at [facility]. Dr. Meeks has followed the patient for her severe progressive refractory metabolic syndrome. The patient stated she was first overweight at age 34. She started her first diet at age 22 with no meat or fried foods included. Her medications for weight loss include fen phentermine with Dr. William Meeks. The patient had resulting headaches of a migraine nature and the medication was discontinued with resulting weight gain. The patient had a 15 pound weight gain within three months, from January onward, off phentermine. She has undergone Slim-Fast for one year and had the most results with weight loss with melaleuca for three years. She is at her highest weight currently. The patient stated that her eating patterns include more weight gain related to decreased energy with her neuromuscular disorder as well as fibromyalgia. She is unable to exercise but does want to return to swim therapy when weight loss recurs. Her exercise is currently limited by pain in multiple joints as well as excessive fatigue. She has not been on fen phentermine. Her obesity-related comorbidities include a metabolic syndrome with impaired glucose intolerance, hypertension, abnormal body weight regulation, obstructive sleep apnea with CPAP, secondary hyperparathyroidism, chronic pain, gastroesophageal reflux disease and migraine syndrome. She presents with a request for a laparoscopic Zoe-en-Y gastric bypass. Both Dr. William Meeks and Dr. Pedrito Gutierrez have included letters of referral and support for bariatric surgery, as the patient has severe medical comorbidities at present and these will tend to increase with increasing weight gain. Past Medical History: 1. Severe progressive metabolic syndrome with impaired glucose intolerance, hypertension, abnormal body weight regulation. 2. Hypertension, well controlled, with Inderal and triameterine/MTCZ-75. 3. Obstructive sleep apnea with CPAP since September 2001, with Dr. Tobias in [place]. The patient thinks her settings are at 4 with distilled water use. 4. Secondary hyperparathyroidism. Last serum PTH had mild elevation. 5. Chronic pain. 6. Chronic fatigue with fibromyalgia. 7. Creatinine kinase slightly elevated at times. 8. Neuromuscular disorder. With recent rheumatoid inflammatory disorder as increasing CRP and ESR. 9. Synovitis in hand tendons and other body tendons. 10. Migraine syndrome controlled with Inderal. MR of the brain was normal. 11. Depression and anxiety. 12. 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 Hypercoagulable work up was negative post incident, no elevation in sed rate at time of the optic nerve cerebrovascular accident. Potential history of heart attack after childbirth multiple years ago. Past Surgical History: 1. Tonsillectomy 40 years ago. 2. Hysterectomy December 1985. 3. Oophorectomy April 1988. 4. Carpal tunnel June and July 2002. 5. Lumpectomy July 2002 for benign fibrocystic disease. 6. Right trigger release surgery in January 2003. 7. Left trigger release surgery in May 2003, both at [facility] in [place]. Allergies: PENICILLIN, CODEINE, KEFLEX, SULFA, CLINDAMYCIN, LATEX. Review of Systems: Neurological: Has had history of left optic nerve ischemia with stroke in 1998. Potentially related to migraine. Has resultant left eye blindness and decreasing vision in right eye. 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 No history of seizures. Some numbness in hands related to bilateral carpal tunnel. Has migraine headaches and is treated with Inderal. Pulmonary: No asthma. Last pneumonia 1980. No emphysema. Sleep apnea confirmed with sleep study with Dr. Tobias in [place] in September 2001, currently on CPAP nightly. Gastrointestinal: Heartburn, no H. pylori test, no duodenal ulcer. Has occasional right upper quadrant pain, has never had a gallbladder ultrasound, no inflammatory bowel disease or constipation. Cardiac: Reports chest pain and a heart attack the day after. One of her childbirths with reported hemorrhage. No current problems with chest pain or question of hypercoagulable state. Has history of murmur. Does not recall having had an echocardiogram. No blood clot in legs or lung reported. Has hypertension controlled with blood pressure medications. Has reported high cholesterol. Urinary: Had past history of bladder infection, no current dysuria or hematuria. Has occasional stress urinary incontinence. No renal failure. Has had hysterectomy in the past. Skin: No sores on legs or poor circulation. Has occasional skin infection and revealed red patches in her left groin for which she is on current antibiotics. Endocrine: Has impaired glucose intolerance but no diagnosed diabetes at present. A secondary hyperparathyroidism and PTH are monitored closely. Neuromuscular: Has osteoarthritis in shoulders, knees and hips. New rheumatoid arthritis diagnosed with her June appointment with elevated values. She has degenerative joint disease in her low back. Has fibromyalgia and had difficulty walking last September. She now has a hand-held pain that she uses for ambulation. Notes toe-stepping with her right foot related to pain in the right ball of her foot, which makes her gait uneven but stable. Mental health: Has anxiety and depression and has received mental health therapy as well as attendance at grief classes since her mother is . Family History: Father of myocardial infarction. Mother of cardiovascular disease and hypoglycemia. Brother age 45 is alive, sister age 46 is alive, and children are ages 22 and 25. One child has kidney failure and Henoch-Reina nlein purpura. Personal/Social History: The patient is currently disabled and is not working. She is and has her oldest son living at home with her. She often baby-sits a 4-year-old niece. Habits: She has a 20 pack year smoking history with current one pack every four days, and had been on two packs, which is an improvement in her smoking history. No current alcohol intake but had been having seven drinks a week. No history of alcohol or drug rehabilitation. Current Medications: 1. Inderal 160 mg b.i.d. 2. Calcium D 800 mg b.i.d. 3. Triamterene MCTZ-75, 50 mg daily. 4. Diclofenac 75 mg b.i.d. 5. Axid 300 mg daily. 6. Aspirin 81 mg daily. 7. Flexeril 10 mg p.r.n. 8. Darvocet N 100, 650 mg p.r.n. 9. Promethazine suppository or elixir as needed. 10. Z-pack antibiotics for skin rash, burning in left skin folds. 11. Restasis 2 drops in eyes b.i.d. 12. Multivitamin. Physical Exam GENERAL: Well-developed female age 43, looking older than her stated age. VITAL SIGNS: Weight 332.8 pounds, height 5 feet, 10 inches, calculated body mass index of 47 kg/m2. Blood pressure is 138/72, pulse 78, respirations 16. LUNGS: Clear to auscultation bilaterally. CARDIOVASCULAR: Regular rate and rhythm without murmurs, gallops or rubs. S1, S2 audible. ABDOMEN: Obese, soft, nontender, nondistended, no costovertebral angle tenderness. In the left groin are patches of scaly red skin, history of acanthosis nigricans. Has a small dressing over one of the patchy areas. They are nondraining at present with no induration. EXTREMITIES: 2+ vulvar edema. Muscle strength 4/5 on the right and 3/5 on the left. Pulses are 2+ bilaterally. NEUROLOGIC: Cranial nerves 2-12 with impairments in cranial nerves 2 for optic and 5 for corneal reflex. Laboratory studies: Full sets of laboratory values received from March [address] Gutierrez. Elevations include a white blood cell count of 12.2, and insulin fasting of 45.2. Creatinine kinase at 214 and ESR of 65. All other electrolytes were within normal limits, including TSH. Impression: Ms. Meehan is a 43-year-old female with morbid obesity and multiple medical problems, some related to morbid obesity, including severe progressive refractory metabolic syndrome with impaired glucose intolerance, hypertension, abnormal body weight regulation, especially off phentermine, and obstructive sleep apnea with CPAP. The patient has progressive neuromuscular disorder with new rheumatoid inflammatory disorder. She also has migraine syndrome as well as chronic fatigue. The patient is an excellent candidate for laparoscopic Zoe-en-Y gastric bypass and this history and physical serves as a request for Zoe-en-Y gastric bypass with Chris Padgett M.D. at [facility]. Her primary care physician as well as Dr. Meeks feel that the patient will have progressive weight gain and increased risks from her morbid obesity conditions without weight loss. She was unable to continue phentermine due to increased migraine headaches. The National [place] of [employer] states that 96% of all nonoperative therapy regimens to date have failed to control the medical comorbid problems and the morbid obesity disease. Ms. Meehan meets and exceeds the criteria set up by the NIH, the [place] [employer] for [employer]ariatric [employer], and the [place] [employer], regarding surgical treatment of the medical comorbid conditions and the morbid obesity disease. The patient is motivated to undergo specific testing as well as outpatient consultations as prerequisite for bariatric surgery, including nutrition and psychological evaluation. We will also request ultrasound of the abdomen to rule out cholelithiasis as well as an H. pylori serum. Plan: 1. The patient is to obtain outpatient nutrition consult at [facility], psychology evaluation her home town with assistance by Dr. Gutierrez as needed. 2. We will ask Dr. Gutierrez to obtain an H. pylori serum. We will also request ultrasound of the abdomen to rule out cholelithiasis, as the patient has intermittent right upper quadrant pain. 3. Continue to reevaluate patient's muscular functioning and need for assistance postoperatively. 4. We will seek authorization for a laparoscopic Zoe-en-Y gastric bypass and call the patient with the results of the work up process. Melisa Lake/ja2 P [id number] FAX: Dr. Zachary Gutierrez: [phone] cc: Joanna Valdez MD [facility] [address] [facility] [place] [id number] signed by Interface, [place] Machine Operator In at 11/19/2005 3:09 AM PDTdocumented in this encounter Plan of Treatment Not on filedocumented as of this encounter Visit Diagnoses Not on filedocumented in this encounter"
--- OUTSIDE RECORDS SUMMARY | ~2020-02-29 | XMS | Encounter Summary ---
Demographics + + + | Address | [address] | | | [place] [address] | + + + | Home Phone [...] Team Providers + +------+ + | Care Straight Cutter Machine Name | Role | Phone [...] | [address] | (Primary Dx) | | | | [facility] | [place], [place] | | | | | [address] | [address] | | | | | [address] | [phone] | | | | | [facility] | | | | | | Physician's | | | | | | [place]arm[place], | | | | | | [place] [address] | | | | | | [phone] | | | +--------+---------+ + + + [...] + + documented in this encounter Progress Beto Penaloza - 05/27/2007 4:03 PM PST Component Reference Range 02/23/2007 VITAMIN D 25 HYDROXY 20-57 ng/mL 51 TSH 0.28-5.00 uIU/ml 1.70 documented in this encounter Plan of Treatment Not on filedocumented as of this encounter Visit Diagnoses + + | Diagnosis | + + | Hypothyroidism - Primary Unspecified hypothyroidism | + + documented in this encounter
--- OUTSIDE RECORDS SUMMARY | ~2020-02-29 | XMS | Encounter Summary ---
Demographics + + + | Address | [address] | | | [place] [address] | + + + | Home Phone [...] Team Providers + +------+ + | Care Tow Motor Operator Name | Role | Phone | [...] + | 06/16/ | Clinical | [facility] | Emmy-Kamlesh, | B12 deficiency | | 2020 | Support | MEDICINE [address] | [place] | (Primary Dx) | | | | [place], | [address] [facility] | | | | | [place] [address] | [place] [address] | | | | | [phone] | [phone] | | | | | | | [...] documented as of this encounter Progress Notes Shanta Whaley Medical Assistant - 06/16/2019 10:30 AM PSTFormatting [...] [place] | | | | | | [place] [address] | | | | | | [phone] | | | | | | | [...] | | | | First dose on [facility] 10/15/17 at 1215 | | | | [...]
--- OUTSIDE RECORDS SUMMARY | ~2020-02-29 | XMS | Encounter Summary ---
Demographics + + + | Address | [address] | | | [place] [address] | + + + | Home Phone [...] Providers + +------+ + | Care Film Library Clerk Name | Role | Phone | [...] [address] | | | | | [place], [place] | [place], [place] | | | | | [address] | [address] | | | | | [phone] | [phone] | | | | | | | [...]
--- OUTSIDE RECORDS SUMMARY | ~2020-02-29 | XMS | Encounter Summary ---
Demographics + + + | Address | [address] | | | [place] [address] | + + + | Home Phone [...] Team Providers + +------+ + | Care Guest Services Assistant Name | Role | Phone | + +------+ + | Maria Esther Cintron MD | PCP | | + +------+ + Encounter Details +--------+ + + + + | Date | Type | Department | Care Team | Description | +--------+ + + + + | 08/26/ | Telephone | [facility] | Chris Padgett, | | | 2010 | | [place] [address] | [address] [facility] | | | | | Bethanie Mailcode: CH4S | [address] | | | | | [facility] | [place], [place] | | | | | and Healing, | [address] | | | | | Building , 6th | [phone] | | | | | Floor [place], [place] | | | | | | [address] | | | | | | [phone] | | | +--------+ + + + [...] this encounter Miscellaneous Notes Telephone Encounter - Ivy Colon RN - 08/27/2010 2:30 PM PDTSpoke with Belinda this afternoon. She said has put on approximately 50 pounds and she has not been able to take it off in quite some time. Denies having problems with nausea / vomiting. She is eating 3-4 sma ll meals per day. She eats a variety of foods: Eating lots of soups right now, lentils, minestrone, cream of mushroom, approx half a cup a t a time If eats bread, possibly one slice a day Eatings low-fat crackers Scrambled eggs - eats one every day for protein Cheeses once in awhile, with crackers Drinks milk, lots of water Sugar-free popsicles in summer time Oatmeal Fruits and vegetables Primarily, she should be seen by a approver. She told me, however, that approver visits a re not covered by her insurance and she cannot afford the out of pocket fee. Transferred wendi del castillo to the manager sterile for appointment with Dr. Padgett to assess her. elephone Encounter - Nikky Modi - 08/26/2010 12:26 PM PDTBredeannavera Molly Meehan calling stating she is putting her weight back on despite eati ng "next to nothing". Pt needs to speak with someone regarding this. Advised caller that they may not receive a call back from nurse or provider until the next business day. Caller understands and is agreeable to this. Is it alright to leave a detailed message? Yes Pain Scale: n/a Recent Surgery or Procedure: no Pharmacy: Pharm[facility] Preferences[facility] [facility] [address] [place], [place] [id number] documented in this encounter Plan of Treatment Not on filedocumented as of this encounter Visit Diagnoses Not on filedocumented in this encounter
--- OUTSIDE RECORDS SUMMARY | ~2020-02-29 | XMS | Encounter Summary ---
Demographics + + + | Address | [address] | | | [place] [address] | + + + | Home Phone [...] Providers + +------+ + | Care Freight Broker Agent Name | Role | Phone | [...] | | Center at [facility] [address] | [employer] [address] | | | | | [address] [place] | [facility] [address] | | | | | for Health and | [place], [place] | | | | | [place] [address] | [address] | | | | | [place], [place] | [phone] | | | | | [address] | | | | | | [phone] | | | +--------+ + + + [...]
--- OUTSIDE RECORDS SUMMARY | ~2020-02-29 | XMS | Encounter Summary ---
Demographics + + + | Address | [address] | | | [place] [address] | + + + | Home Phone [...] Team Providers + +------+ + | Care Flamer Sealer Name | Role | Phone | + [...] + | 12/13/ | Telephone | [facility] | Alanis, | Follow-up | | 2018 | | MEDICINE [address] | MD [place] | | | | | [place], | [address] [facility] | | | | | [place] [address] | [place] [address] | | | | | [phone] | [phone] | | | | | | | [...] her xray reports that were send from [facility]. Records are in chart now. Patient wants to know if an production or plant engineer provider can review them since pcp is out of the office . Please advise. elephon e Encounter - Juliane Elena - 12/13/2018 11:15 AM PDTPatient called stating [...] KAY | | | | | | [place] [address] | | | | | | [phone] | | | | | | | | +--------+---------+ + + + documented as of this encounter Visit Diagnoses Not on filedocumented in this encounter"
--- OUTSIDE RECORDS SUMMARY | ~2020-02-29 | XMS | Encounter Summary ---
Demographics + + + | Address | [address] | | | [place] [address] | + + + | Home Phone [...] Providers + +------+ + | Care Pipe Stripper Name | Role | Phone | + [...]
--- OUTSIDE RECORDS SUMMARY | ~2020-02-29 | XMS | Encounter Summary ---
Demographics + + + | Address | [address] | | | [place] [address] | + + + | Home Phone [...] Team Providers + +------+ + | Care Facilities Maintenance Supervisor Name | Role | Phone | + +------+ + | Petrona Thapa | PCP | | | MD | | | + +------+ + Reason for Visit + +--------+ + | Reason | Onset | Comments | | | Date | | + +--------+ + | Medication Orders | 06/24/ | | | | 2018 | | + +--------+ + Encounter Details +--------+ + + + + | Date | Type | Department | Care Team | Description | +--------+ + + + + | 06/24/ | Telephone | [facility] | Alanis, | Medication Orders | | 2018 | | [facility] [address] | MD Petrona | | | | | [place], | [address] [place] | | | | | [place] [address] | [place] [address] | | | | | [phone] | [phone] | | | | | | | [...] this encounter Miscellaneous Notes Telephone Encounter - Shalonda Mcdermott - 06/24/2018 1:42 PM PSTBrenda called back stated she is currently taking 8 mg every 6 hours of her Zofran. She stated 90 tablets is what she goe s through in a 30 day period. Patient is requesting a prescription for 90 day supply to [facility] [place]. Please advise P M PSTTelephone Encounter - Petrona Thapa MD - 06/24/2018 12:29 PM PSTPlease f ind out how much zofran she uses on average per day and propose an rx for 90 days. Veto lentz signed by Petrona Thapa MD at 06/24/2018 12:30 PM PSTTelephone Encounter - Maggie Montoya LPN - 06/24/2018 9:25 AM PSTPlease advise elephone Encounter - Astrid Grant - 06/24/2018 8:4 2 AM Jessica called regarding her Zolfran Rx. She stated she only received a prescrition f or 30 days not 90 days. She uses [facility] in [place]. She can be reached at [phone]. 8 :44 AM PSTdocumented in this encounter Plan of [...] | | | | | [place] [address] | | | | | | [phone] | | | | | | | | +--------+---------+ + + + documented as of this encounter Visit Diagnoses Not on filedocumented in this encounter"
--- OUTSIDE RECORDS SUMMARY | ~2020-02-29 | XMS | Encounter Summary ---
Demographics + + + | Address | [address] | | | [place] [address] | + + + | Home Phone [...] Providers + +------+ + | Care Guidance Services Coordinator Name | Role | Phone | + +------+ + | Sulaiman Carrera MD | PCP | | + +------+ + Reason for Visit + +--------+ + | Reason | Onset | Comments | | | Date | | + +--------+ + | Erroneous Encounter | 03/28/ | | | - Disregard | 2012 | | + +--------+ + Encounter Details +--------+ + + + + | Date | Type | Department | Care Team | Description | +--------+ + + + + | 03/28/ | Documentati | [facility] Comprehensive | Rosi Antonio, | Erroneous Encounter | | 2012 | on | Pain Center at | ANP | - Disregard | | | | [facility] | | | | | | [address] | | | | | | [facility] | | | | | | and Healing, | | | | | | Building | | | | | | Floor [place], [place] | | | | | | [address] | | | | | | [phone] | | | +--------+ + + + [...] this encounter Miscellaneous Notes Telephone Encounter - Rosi Antonio ANP - 03/28/2013 4:57 PM PDT This encounter was opened in error. Please disregard this note. documented in this encounter Plan of Treatment Not on filedocumented as of this encounter Visit Diagnoses + + | Diagnosis | + + | ERRONEOUS ENCOUNTER - NO DIAGNOSIS - Primary | + + documented in this encounter"
--- OUTSIDE RECORDS SUMMARY | ~2020-02-29 | XMS | Encounter Summary ---
[...] Providers + +------+ + | Care Security Public Safety Officer Name | Role | Phone | [...] + + | Closed | Specialty | Audiology | Diagnoses | | Esarey, | | | Services | | Meniere's | Emmy-Tajt | [place], [place] | | | Required | | disease, | i, | CCC-A [address] | | | | | unspecified | Sulaiman-Russell | [address] | | | | | laterality | , [address] | [address] [place] | | | | | | [address] | [place] | | | | | | [place], | [address] Phone: | | | | | | [place] | [phone] | | | | | | [address] | Fax: | | | | | | Phone: | [phone] | | | | | | [phone] | | | | | | | Fax: | | | | | | | [phone] | | +--------+ + + + + + Encounter Details +--------+ + + + + | Date | Type | Department | Care Team | Description | +--------+ + + + + | 12/20/ | Off-Site | [facility] | Alanis, | Follow up (Primary | | 2020 | Visit | AUDIOLOGY AND | MD Petrona | Dx); [facility] | | | | [facility] | [address] [facility] | disease, unspecified | | | | [address] | [place] [address] | laterality | | | | [address] [facility] | [phone] | | | | | [place] [address] | | | | | | [phone] | Elisabet Munson, | | | | | | CCC-A [address] | | | | [address] [facility] | | | | | | [place] [address] | | | | | | [phone] | | | | | | | [...] Progress Notes Elisabet Munson MS CCC-A - 12/21/2019 10:15 AM PDTReferring Provider: Petrona singh M.D. Ms. Meehan is here for a yearly check-up on her vertigo and hearing difficulty. She relat ed that her dizziness has not subsided. Results of Hearing Test: Right ear--Pure tone air and bone conduction testing showed a flat 25-35dB threshold at 250 Hz through 8 KHz . Left ear --Pure tone air and bone conduction testing showed a flat 25-35dB threshold at 250 Hz through 8 KHz. Speech Recognition Thresholds were 30dB in the right ear and 30dB in the left ear. Speech Discrimination Scores were 92% in right ear and 92% in the left ear. Tympanometry showed normal type A tracing in right ear and a type C tracing with negati ve middle-ear pressure in the left ear. Impression and Recommendation: A bilateral sensory-neural hearing loss. Follow-up care with Dr. Genao, Sr. Thank you. documented in thi s encounter Plan of Treatment +--------+---------+ + + + | Date | Type | Specialty | Care Team | Description | +--------+---------+ + + + | 05/17/ | Office | Internal Medicine | Alanis, | | | 2019 | Visit | | MD Petrona | | | | | | [address] [facility] [place] | | | | | | [place] [address] | | | | | | [phone] | | | | | | | [...] encounter Results DIAGNOSTIC REPORT - EXTERNAL SCAN (12/21/2019 12:00 AM PDT) + + + | Narrative | Performed At | + + + | Ordered by an | | | unspecified provider. | | + + + documented in this encounter Visit Diagnoses + + | Diagnosis | + + | Follow up - Primary | + + | Meniere's disease, unspecified laterality | + + documented in this encounter"
--- OUTSIDE RECORDS SUMMARY | ~2020-02-29 | XMS | Encounter Summary ---
Demographics + + + | Address | [address] | | | [place] [address] | + + + | Home Phone [...] Author | [facility] | | | and [place] | + + + | Organization | [facility] | | | and [...] Team Providers + +------+ + | Care Campus Dean Name | Role | Phone | [...] + + | 02/22/ | Telephone | [facility] | Alanis, | Medication Question | | 2018 | | [place] [address] [address] | MD Petrona | | | | | [place], | [address] | | | | | [place] [address] | [place] [address] | | | | | [phone] | [phone] | | | | | | | [...] Petrona | | | | | | [facility] [address] | | | | | | [place] [address] | | | | | | [phone] | | | | | | | | +--------+---------+ + + + documented as of this encounter Visit Diagnoses Not on filedocumented in this encounter"
--- OUTSIDE RECORDS SUMMARY | ~2020-02-29 | XMS | Encounter Summary ---
Demographics + + + | Address | [address] | | | [place] [address] | + + + | Home Phone [...] Providers + +------+ + | Care Toe Stripper Name | Role | Phone | + +------+ + | Sulaiman Carrera MD | PCP | | + +------+ + Encounter Details +--------+ + + + + | Date | Type | Department | Care Team | Description | +--------+ + + + + | 07/30/ | Ancillary | Registration [id number] | Beto Meeks MD | | | 2006 | Registratio | [facility] | [address] | | | | n | [place] Mailcode: [id number] | [place], [place] | | | | | [place], [place] | [address] | | | | | [address] | [phone] | | | | | [phone] | | | +--------+ + + + [...] + + + + + | [facility] | [address] | [place] [address] | | | LABORATORY | | | [...] at: | | | | | | [employer],[address] | | | | | | [address] | | | | | | [address] | | | | | | [email or web address] | | | | + + + + + + + + | Specimen | + + | | + + + + + + + | Performing | Address | City/State/Zipcode | Phone Number | | Organization | | | | + + + + + | [facility] | [address] | [place], [place] | | | [facility] | | [address] | | + + + + + [...] Iron and TIBC, Serum Test performed by [facility] | | | [facility]ly [facility]. | | + + + + + + + + | Performing | Address | City/State/Zipcode | Phone Number | | Organization | | | | + + + + + | [facility] | [address] | [place] [address] | | | LABORATORY | | | [...] | B12, SERUM | Test performed by [facility] | | | | | | [facility] [place] | | | | | | Laboratories. | | | | + + + + + + + + | Specimen | + + | | + + + + + + + | Performing | Address | City/State/Zipcode | Phone Number | | Organization | | | | + + + + + | [facility] | [address] | [place] [address] | | | LABORATORY | | | | + + + + + SLIDE REVIEW (07/30/2006 4:00 PM PST) + + | Specimen | + + | | + + + + + | Narrative | Performed At | + + + | * Corrected 07/30/06 18:23: JANIENEL COMMENTS, prev report: Not | [facility] | | reported | DEPARTMENT OF | | | PATHOLOGY | + + + + + + + + | Performing | Address | City/State/Zipcode | Phone Number | | Organization | | | | + + + + + | [facility] | [address] [facility] | [place] [address] | | | PATHOLOGY | [address] | | | + + + + + | [facility] | [address] [place] [address] | [place] [address] | | | PATHOLOGY | [address] [...] | + + + | * Corrected 07/30/06:23: SUSHIL MCKEON, prev report: Not | [facility] | | reported | DEPARTMENT OF | | | PATHOLOGY | + + + + + + + + | Performing | Address | City/State/Zipcode | Phone Number | | Organization | | | | + + + + + | [facility] DEPARTMENT OF | [address] | [place] [address] | | | PATHOLOGY | [address] | | | + + + + + | [facility] DEPARTMENT OF | [address] [facility] | [place] [address] | | | PATHOLOGY | [address] [...] Performed At | + + + | [id number] Estimated GFR > 60 mL/min/1.73 sq m if non- | [facility] | | [id number] Estimated GFR > 60 mL/min/1.73 sq m [...] + + + | [facility] | [address] | [place] [address] | | | PATHOLOGY | [address] | | | + + + + + | [facility] | [address] | [place] [address] | | | PATHOLOGY | [address] | | | + + + + + documented in this encounter Visit Diagnoses Not on filedocumented in this encounter"
--- OUTSIDE RECORDS SUMMARY | ~2020-02-29 | XMS | Encounter Summary ---
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 2. Continue with Truro 10/325 1 tablet as needed for activity related pain NTE 3 per day. 3. Continue with pain psychology and physical therapy. 4. Follow up in two weeks. 5. Keep neurology evaluation as able with insurance aurthorization. documented in this encounter Progress Notes Delfina Molina - 09/09/2006 1:00 PM PDTFormatting of this note might be different from th jennifer original. 09/09/2006 Belinda Meehan is a 46 y.o. female [facility] Return Visit Chief Complaint: [...] been able to see Dr Gutierrez yet demetrius nuno does have and appointment next week to [...] ev eduardo 72 hours. 2. Continue with Truro 10/325 1 tablet as needed for activity related pain NTE 3 per day. 3. Continue with pain psychology and physical therapy. 4. Follow up in two weeks to review medication management 5. Keep neurology evaluation as able with insurance aurthorization.- migraine headache eval uation 6. PCP to assess LE edema/swelling. DELFINA MOLINA [facility] Comprehensive Pain Center Mail code CH 4P [place] [facility] and [address] [address] Ailyn Foster 09/10/19 12:20 PM PDTCMA History: PMH/PSH/SH/FH review 1. [...]
--- OUTSIDE RECORDS SUMMARY | ~2020-02-29 | XMS | Encounter Summary ---
Demographics + + + | Address | [address] | | | [place] [address] | + + + | Home Phone [...] Providers + +------+ + | Care Manager Desktop Name | Role | Phone | + +------+ + | Pedrito Gutierrez MD | PCP | | + +------+ + Encounter Details +--------+---------+ + + + | Date | Type | Department | Care Team | Description | +--------+---------+ + + + | 02/21/ | Office | Preoperative | Tera Lucio, | Mass (Primary Dx); | | 2008 | Visit | Medicine Clinic at | ANP [address] | Other Specified | | | | [facility] 4th Floor Day | [address] | Pre-Operative | | | | Stay [address] | [place], [place] | Examination; HTN | | | | [address] | [address] | (Hypertension); | | | | Mailcode: UHN65 | [phone] | Chronic Pain | | | | [facility] | | | | | | [address] [facility] [place] | | | | | | [address] | | | | | | [phone] | | | +--------+---------+ + + + [...] + | Blood Pressure | 138/78 | 02/21/2009 1:12 PM | | | | | PDT | | + + + + + | Pulse | 67 | 02/21/2009 1:12 PM | | | | | PDT | | + + + + + | Temperature | 37.2 C (99 F) | 02/21/2009 1:12 PM | | | | | PDT | | + + + + + | Respiratory Rate | 14 | 02/21/2009 1:12 PM | | | | | PDT | | + + + + + | Oxygen Saturation | 100% | 02/21/2009 1:12 PM | | | | | PDT | | + + + + + | Inhaled Oxygen | - | - | | | Concentration | | | | + + + + + | Weight | 101.6 kg (224 lb) | 02/21/2009 1:12 PM | | | | | PDT | | + + + + + | Height | 175.3 cm (5' 9") | 02/21/2009 1:12 PM | | | | | PDT | | + + + + + | Body Mass Index | 33.08 | 02/21/2009 1:12 PM | | | | | PDT | | + + + + + documented in this encounter Patient Instructions Patient Instructions Tera Etienne - 02/21/2009 1:20 PM PDT Current Medication List Name Sig BABY ASPIRIN 81 MG CHEWABLE TAB 2 daily WELLBUTRIN XL 300 MG 24 HR TAB take 1 tablet (300 mg) by oral route once daily CALCIUM 600 WITH VITAMIN D OR ( 400 unit of Vit D) 1 tab 4 x daily CYANOCOBALAMIN 1,000 MCG/ML SYRINGE 1 inj q month DOCUSATE SODIUM 100 MG TAB take 1 tablet (100 mg) by oral route once daily at bedtime as ne eded LASIX 40 MG TAB take 1 tablet (40 mg) by oral route once daily INDERAL LA 120 MG 24 HR CAP Take 120 mg by mouth once daily at bedtime. LEVOTHYROXINE 50 MCG TAB Take 1 Tab by mouth once daily. METHOCARBAMOL 750 MG TAB Take 1-2 Tabs by mouth three times daily. MULTIVITAMIN TAB 1 tab by mouth twice daily PRILOSEC OTC 20 MG TAB take 1 tablet by mouth twice daily OXYCODONE SR 40 MG 12 HR TAB Take 40 mg by mouth two times daily. OXYCONTIN OR Take by mouth. 10 mg (2 tablets) every 6 hours POTASSIUM CHLORIDE SR 20 MEQ TAB, PARTICLES/CRYSTALS take 1 tablet (20meq) by oral route on ce daily with food PROMETHAZINE 25 MG TAB 1 tab by mouth as needed RISEDRONATE 35 MG TAB Take 1 Tab by mouth every seven days. SUCRALFATE 1 GRAM TAB Take 1 Tab by mouth before meals. VITAMIN C 500 MG CHEWABLE TAB four times a day Please do not eat or drink after midnight for your procedure. On the morning of your procedure, please DO TAKE your usual morning doses of: thyroid medic ation, prilosec, and pain medication with a sip of water Pre-operative instructions DIET Nothing to eat or drink after midnight on the night prior to surgery. Your doctor will inst ruct you on what medications to take the morning of surgery. Please note: Some surgeries may require additional dietary restrictions or a bowel preparation. Your christine gical team will give you additional printed instructions should these be necessary. MEDICATIONS Unless otherwise directed by your provider, do not take any Aspirin, vitamin E or non-stero idal anti-inflammatory (NSAIDs i.e. Advil, Aleve, Ibuprofen) or herbal supplements seven day s prior to your surgery. These drugs may interfere with normal blood clotting and may cause excessive bleeding and bruising during or after the surgery. Please see the list below, [facility] has a list of products that contain Aspirin, Ibuprofen, or Vitamin E If you are taking Coumadin (warfarin), Plavix or any other blood thinners please let your s urgical team know as medication changes will be necessary. If you need a pain medication for general purposes, use Tylenol as directed. If you are in doubt about any medications that you are taking, please contact our office. PRE-OP BATHING/SHOWERING - HIBICLENS (Chlorhexidine Gluconate) Bath or shower the evening before and the morning of your surgery Use the bottle of Hibiclens soap for the evening cleansing and the bottle in the morn ing Wash from your neck to your toes. BE CAREFUL NOT TO WASH YOUR FACE OR HAIR WITH THIS SOLUTI ON After your shower or bath do not apply lotions, powders, or deodorant SMOKING You should not smoke for four weeks prior to the procedure and two weeks after the procedur e. If you are a smoker, please speak with your provider. Smoking can significantly affect the outcome of your procedure. Smoking near the time of vuong rgery causes a more acute narrowing of the blood vessels, which may lead to decreased blood flow to the tissue, poor healing, bad scars, or actual loss of tissue. WHEN TO ARRIVE Check-in times for Hospital Admissions are not available until the day prior to surgery. So meone from your surgeon's office will contact you with your check in time. If you do not hea r from anyone by 3:00 PM please call your surgeons' office for [id number]. PARKING Parking for patients and visitors is available in the [facility] Parking structure located across from the emergency department. Patient parking is available on level 1 and 3. [employer] d parking is available on the top level. TRANSPORTATION You will require transportation home on the day of discharge. Pain medications and physical activity restrictions may limit your ability to drive safely. CANCELLING YOUR PROCEDURE Please notify your surgeons's office as soon as possible should you need to cancel or keating e your surgery date. We will attempt to reschedule your procedure in a timely manner however due to a limited amount of operating room time a waiting list is not uncommon. ILLNESS Please call your surgeons's office with any signs of illness such as cold, flu, infection, fever, or skin rash/infection anytime prior to your surgery. ADDITIONAL ADVICE FOR DAY OF SURGERY: Remove nail burundian from at least one fingernail (if applicable) Do not wear any jewelry to the hospital. Leave all your valuables at home! Wear loose, comfortable clothing. Allow enough travel time so you arrive at your check-in location on time. THINGS TO DO AFTER SURGERY: To prevent pneumonia, use an incentive spirometer or "peep breathe" to keep your lungs w orking properly and to help prevent respiratory complications. Use it 3-5 times an hour whi le awake. To prevent blood clots, leg and feet exercises will help maintain good circulation. Someti me your doctor will order "air compression stockings" to help the circulation in your legs. Registration Locations (please check in at one of the following registration desks prior to surgery) For surgeries scheduled to take place on the [place] at the [facility]: Surgeries scheduled in the [facility] ( North): registration is located on the 4th floor of [facility] (Day Surgery). Surgeries scheduled in the [facility]: registration is located on the 9th floor . For surgeries scheduled to take place at the [facility]: registration i s located on the 4th floor (Surgery Center). AVOID THESE MEDICATIONS FOR 7 DAYS BEFORE SURGERY PRODUCTS CONTAINING ASPIRIN [place], Anacin, Anexsia with Codeine, Len nos, Aspirin, Aspirin suppositories, Ascri ptin, Aspergum, Axotal, B-A-C, Baby Aspirin, Lucial, BC Powder, Bexophene, Buffaprin, Bufferi n, Buffinol, Cama-Arthritis Strength, Congespirin, [place], Coricidin, Damason, Darvon, Dristan , Anastasia-Gesic, Digel, Dolprin #3 Tablets, Donatab, Doxaphene, Duragesic, Easprin, Ecotrin, Dipika grin Forte, Emiprin, Emprazil, Equagesic, Equazine M, Excedrin, Fiogesic, Fiorgen PH, Fioric et, Fiorinal, 4-Way Cold Tablet Gemnisyn, Indocin, Liquprin, Lortab ASA, Magnaprin, Marnal, Meprobamate, Midol, Momentum, N orgesic, [place], Orphengesic, Pabalate, P-A-C, Percodan, Presalin, Robaxasil, Roxiprin, Bunny eto, Salocol SK-65 Compound, Sine-Aid, Sine-Off,, [place], Supac, Talwin Compound, Trigesic, Tolectin , Traiminicin, Vanquish, ZORprin, Zomax PRODUCTS CONTAINING IBUPROFEN Advil, Aleve, Haltran, Medipren, Midol, Motrin, Naproxyn, Nuprin, Rufen OTHER PRODUCTS WHICH MAY PROMOTE BLEEDING Vitamin E, Gingko Biloba, Marine Fatty Acids, Lerona-3 Fish Oil Supplements documented in this encounter Progress Notes Chino Avery, Tera Maier - 02/21/2009 1:46 PM PDTSee Scanned H&P. documented in this e ncounter Plan of Treatment Not on filedocumented as of this encounter Procedures + +--------+ + + + | Procedure Name | Priori | Date/Time | Associated Diagnosis | Comments | | | ty | | | | + +--------+ + + + | INR | Routin | 02/21/2009 | Mass | Results for this | | | e | 1:22 PM | | procedure are in the | | | | PDT | | results section. | + +--------+ + + + | BASIC METABOLIC SET | Routin | 02/21/2009 | Other Specified | Results for this | | (NA, K, CL, TCO2, | e | 1:22 PM | Pre-Operative | procedure are in the | | BUN, CR, GLU, CA) | | PDT | Examination | results section. | + +--------+ + + + | CBC ONLY | Routin | 02/21/2009 | Other Specified | Results for this | | | e | 1:22 PM | Pre-Operative | procedure are in the | | | | PDT | Examination | results section. | + +--------+ + + + | APTT (ACT. PART. | Routin | 02/21/2009 | Mass | Results for this | | THROMBO TIME) | e | 1:22 PM | | procedure are in the | | | | PDT | | results section. | + +--------+ + + + | 12 LEAD ECG | Routin | 02/21/2009 | Other specified | Results for this | | | e | 1:17 PM | pre-operative | procedure are in the | | | | PDT | examination | results section. | + +--------+ + + + documented in this encounter Results APTT (ACT. PART. THROMBO TIME) (02/21/2009 1:22 PM PDT) + + + + + + | Component | Value | Ref Range | Performed | Pathologist | | | | | At | Signature | + + + + + + | APTT | 22.2 (L)Comment: | 26.0 - 36.0 | [facility] | | | | APTT Therapeutic | seconds | DEPARTMENT | | | | Range | | OF | | | | | | PATHOLOGY | | | | (75-120) sec | | | | | | Heparin | | | | | | levels of 0.35-0.7 U/mL | | | | + + + + + + + + | Specimen | + + | Blood - Blood | + + + + + + + | Performing | Address | City/State/Zipcode | Phone Number | | Organization | | | | + + + + + | [facility] | [address] | [place] [address] | | | PATHOLOGY | [address] | | | + + + + + | [facility] | [address] | [place] [address] | | | PATHOLOGY | [address] | | | + + + + + INR (02/21/2009 1:22 PM PDT) + + + + + + | Component | Value | Ref Range | Performed | Pathologist | | | | | At | Signature | + + + + + + | INR | 1.02Comment: | 0.90 - 1.20 INR | [facility] [...] + + + + + | [facility] | [address] | [place] [address] | | | PATHOLOGY | [address] | | | + + + + + | [facility] | [address] | [place] [address] | | | PATHOLOGY | [address] [...] | | | DEPARTMENT | | | [place] | | | OF | | | [...] + + + + + | [facility] | [address] | [place] [address] | | | PATHOLOGY | [address] | | | + + + + + | [facility] | [address] | [place] [address] | | | PATHOLOGY | [address] [...] DEPARTMENT OF | [address] | [place] [address] | | | PATHOLOGY | [address] | | | + + + + + | [facility] DEPARTMENT | [address] | [place] [address] | | | PATHOLOGY | [address] | | | + + + + + 12 LEAD ECG (02/21/2009 1:17 PM PDT) + + + + + + | Component | Value | Ref Range | Performed | Pathologist | | | | | At | Signature | + + + + + + | VENTRICULAR | 67 | BPM | [facility] | | | RATE | | | OF | | | | | | CARDIOLOGY | | + + + + + + | ATRIAL RATE | 67 | BPM | [facility] | | | | | | OF | | | | | | CARDIOLOGY | | + + + + + + | P-R | 168 | ms | [facility] | | | INTERVAL | | | OF | | | | | | CARDIOLOGY | | + + + + + + | QRS | 80 | ms | [facility] | | | DURATION | | | OF | | | | | | CARDIOLOGY | | + + + + + + | QT | 396 | ms | [facility] | | | | | | OF | | | | | | CARDIOLOGY | | + + + + + + | QTC | 418 | ms | [facility] | | | | | | OF | | | | | | CARDIOLOGY | | + + + + + + | P AXIS | 25 | degrees | [facility] | | | | | | OF | | | | | | CARDIOLOGY | | + + + + + + | R AXIS | 19 | degrees | [facility] | | | | | | OF | | | | | | CARDIOLOGY | | + + + + + + | T AXIS | 44 | degrees | [facility] | | | | | | OF | | | | | | CARDIOLOGY | | + + + + + + | EKG | Normal sinus rhythmLow | | [facility] | | | DIAGNOSIS | voltage QRSCannot rule | | OF | | | | out Anterior infarct , | | CARDIOLOGY | | | | age undeterminedAbnormal | | | | | | ECG"I have personally | | | | | | interpreted this report, | | | | | | either alone or with a | | | | | | trainee."Confirmed by | | | | | | MARIBEL BLOOD ([id number]) on | | | | | | 23-Feb-2009 15:29:08 | | | | + + + [...] Performed At | + + + | Please click | [facility] | | on view image for the detailed interpretation from [employer] results. | CARDIOLOGY | | | | + + + + + + + + | Performing | Address | City/State/Zipcode | Phone Number | | Organization | | | | + + + + + | [facility] | [address] | [place], [place] | | | CARDIOLOGY | [facility] | [address] | | + + + + + | [facility] | [address] | [place], [place] | | | CARDIOLOGY | [facility] | [address] | | + + + + + documented in this encounter Visit Diagnoses + + | Diagnosis | + + | Mass - Primary Localized superficial swelling, mass, or lump | + + | Other specified pre-operative examination | + + | HTN (hypertension) Unspecified essential hypertension | + + | Chronic pain Other chronic pain | + + documented in this encounter
--- OUTSIDE RECORDS SUMMARY | ~2020-02-29 | XMS | Encounter Summary ---
Demographics + + + | Address | [address] | | | [place] [address] | + + + | Home Phone [...] Team Providers + +------+ + | Care Retirement Village Manager Name | Role | Phone | + +------+ + | Maria Esther Cintron MD | PCP | | + +------+ + Reason for Visit + +--------+ + | Reason | Onset | Comments | | | Date | | + +--------+ + | Refill Request | 12/22/ | | | | 2007 | | + +--------+ + Encounter Details +--------+--------+ + + + | Date | Type | Department | Care Team | Description | +--------+--------+ + + + | 12/22/ | Refill | [facility] | Petra Miranda, | Refill Request | | 2006 | | Center Outpatient | [facility] | | | | | Therapy Center [address] | | [address] | | | | | | Outpatient Therapy | | | | | | Center 2nd floor | | | | | | Mailcode: OP26 | | | | | | [place], [place] | | | | | | [address] | | | | | | [phone] | | | +--------+--------+ + + + [...] Telephone Encounter - Zachary Sampson - 12/05/2011 1:55 PM PDTThis encounter has been admin istratively closed with the authorization of the [facility] Committee. documented in this encount er Plan of Treatment Not on filedocumented as of this encounter Visit Diagnoses Not on filedocumented in this encounter"
--- OUTSIDE RECORDS SUMMARY | ~2020-02-29 | XMS | Encounter Summary ---
Demographics + + + | Address | [address] | | | [place] [address] | + + + | Home Phone [...] Providers + +------+ + | Care Master Steam Yacht Name | Role | Phone | + +------+ + | Petrona Thapa | PCP | | | MD | | | + +------+ + Encounter Details +--------+ + + + + | Date | Type | Department | Care Team | Description | +--------+ + + + + | 12/04/ | Orders Only | [facility] | Alanis, | | | 2019 | | MEDICINE [address] | MD Petrona | | | | | [address] [place], | [address] [facility] | | | | | [place] [address] | [place] [address] | | | | | [phone] | [phone] | | | | | | | [...] | | | | | [place] [address] | | | | | | [phone] | | | | | | | | +--------+---------+ + + + documented as of this encounter Visit Diagnoses Not on filedocumented in this encounter"
--- OUTSIDE RECORDS SUMMARY | ~2020-02-29 | XMS | Encounter Summary ---
Demographics + + + | Address | [address] | | | [place] [address] | + + + | Home Phone [...] Team Providers + +------+ + | Care Sweep Molder Name | Role | Phone | + +------+ + | Pedrito Gutierrez MD | PCP | | + +------+ + Reason for Visit + +--------+ + | Reason | Onset | Comments | | | Date | | + +--------+ + | Lab findings, | 01/03/ | | | teaching, guidance, | 2008 | | | and counseling | | | + +--------+ + Encounter Details +--------+ + + + + | Date | Type | Department | Care Team | Description | +--------+ + + + + | 01/03/ | Telephone | Orthopaedics at | Hai Hoyos, | Lab findings, | | 2008 | | [facility] [address] | MD | teaching, guidance, | | | | [address] | | and counseling | | | | Mailcode: [id number] | | | | | | [facility] | | | | | | [place], [place] | | | | | | [address] | | | | | | [phone] | | | +--------+ + + + [...] this encounter Miscellaneous Notes Telephone Encounter - Hai Hoyos MD - 01/03/2009 2:11 PM [facility]TC[facility]. Images reviewed with Dr. Valadez of radiology. Size of lesion (>1.5cm) u nlikely to respond well to RFA. Will proceed with open biopsy and curettage with bone graft . Pt expressed understanding. 2: 11 PM PDTdocumented in this encounter Plan of Treatment Not on filedocumented as of this encounter Visit Diagnoses Not on filedocumented in this encounter"
--- OUTSIDE RECORDS SUMMARY | ~2020-02-29 | XMS | Encounter Summary ---
Demographics + + + | Address | [address] | | | [place] [address] | + + + | Home Phone [...] Providers + +------+ + | Care Automotive Tire Tester Name | Role | Phone | [...] | | | | pain | [place] | [facility] [address] | | | | | Procedures | Clementina Peterson | [address] | | | | | CONSULT TO | [place] | | | | | GI PROCEDURE | [address] | [address] | | | | | UNIT: | Phone: | | | | | | COLONOSCOPY | [phone] | | | | | | | Fax: | | | | | | | [phone] | | + + + + + + + Reason for Visit + + + | Reason | Comments | + + + | Follow-up visit | | + + + Encounter Details +--------+---------+ + + + | Date | Type | Department | Care Team | Description | +--------+---------+ + + + | 01/22/ | Office | General Surgery | Lorin Chris, | Chronic Abdominal | | 2005 | Visit | Bariatric [address] | [address] | Pain (Primary Dx) | | | | [address] | [address] | | | | | Mailcode: L223A | [place], [place] | | | | | [facility] | [address] | | | | | [address] [place], [place] | [phone] | | | | | [address] | | | | | | [phone] | | | +--------+---------+ + + + [...] Ms. Meehan has been seen in the [facility] emergency dept twice in the last [...] | | | 1,25-DIHYDR | performed by [facility] | | | | | OXY | Laboratory. | | | | + + + + + + + + | Specimen | + + | | + + + + + + + | Performing | Address | City/State/Zipcode | Phone Number | | Organization | | | | + + + + + | [facility] | [address] | [place], [place] | | | [facility] | | [address] | | + + + + + documented in this encounter Visit Diagnoses + + | Diagnosis | + + | Chronic abdominal pain - Primary Abdominal pain, unspecified site | + + documented in this encounter
--- OUTSIDE RECORDS SUMMARY | ~2020-02-29 | XMS | Encounter Summary ---
Demographics + + + | Address | [address] | | | [place] [address] | + + + | Home Phone | | + + + | Preferred Language | Unknown | + + + | Marital Status | | + + + | Confucianism Affiliation | 1001 | + + + | Race | White | + + + | Ethnic Group | Not or | + + + Author + + + | Author | [facility] | | | and [place] | + + + | Organization | [facility] | | [...] Providers + +------+ + | Care Line Crew Supervisor Name | Role | Phone | + +------+ + | Petrona Thapa | PCP | | | MD | | | + +------+ + Reason for Visit + +--------+ + | Reason | Onset | Comments | | | Date | | + +--------+ + | Medication Orders | 12/04/ | | | | 2019 | | + +--------+ + Encounter Details +--------+ + + + + | Date | Type | Department | Care Team | Description | +--------+ + + + + | 12/04/ | Telephone | [facility] | Alanis, | Medication Orders | | 2019 | | MEDICINE [address] | MD Petrona | | | | | [place], | [address] [place] | | | | | [place] [address] | [place] [address] | | | | | [phone] | [phone] | | | | | | | [...] Telephone Encounter - Maggie Montoya LPN - 12/05/2019 12:02 PM PDTPatient notified rx zheng d into pharmacy elephon e Encounter - Susanna Boyce - 12/05/2019 11:49 AM PDTPatient called to check on status of previous message. States she needs the dosage changes as soon as possible. Electronically si gned by Susanna Boyce at 12/05/2019 11:50 AM PDTTelephone Encounter - Maggie Montoya LPN - 12/05/2019 8:43 AM PDTPatient has Loperamide listed twice with 2 different sig. Please advi se elephone Encounter - Adriana Cantor - 12/05/2019 8:16 AM PDTPatient called back asking to speak with the nu rse. Please call patient at [phone].Electronically signed by Adriana Cantor at 11/14 8:17 AM PDTTelephone Encounter - Adriana Cantor - 12/05/2019 6:42 AM PDTPatient called asking to speak with the nurse. She stated her Loperamide was called in incorrectly and needs to be called in as 4 capsules in the morning and 2 in the evening and not just 2 in the daytime. Please call patient at [phone]. documented in this encounter Plan of Treatment +--------+---------+ + + + | Date | Type | Specialty | Care Team | Description | +--------+---------+ + + + | 05/17/ | Office | Internal Medicine | Alanis, | | | 2019 | Visit | | MD Petrona | | | | | | [address]la [address]AY | | | | | | [place] [address] | | | | | | [phone] | | | | | | | | +--------+---------+ + + + documented as of this encounter Visit Diagnoses Not on filedocumented in this encounter"
--- OUTSIDE RECORDS SUMMARY | ~2020-02-29 | XMS | Encounter Summary ---
Demographics + + + | Address | [address] | | | [place] [address] | + + + | Home Phone [...] | ECON | Unknown | | | Rduy | | | | + + +---------+ + | Sree Wells | ECON | Unknown | | + + +---------+ + | Marco Antonio Wells | ECON | Unknown | | + + +---------+ + Care Team Providers + +------+ + | Care Household Refrigeration Mechanic Name | Role | Phone | + +------+ + | Petrona Thapa | PCP | | | MD | | | + +------+ + Reason for Visit + +--------+ + | Reason | Onset | Comments | | | Date | | + +--------+ + | Lab Order | 10/19/ | | | | 2017 | | + +--------+ + Encounter Details +--------+ + + + + | Date | Type | Department | Care Team | Description | +--------+ + + + + | 10/19/ | Telephone | [facility] | Alanis, | Lab Order | | 2017 | | MEDICINE [address] | MD Petrona | | | | | [place], | [address] [facility] | | | | | [place] [address] | [place] [address] | | | | | [phone] | [phone] | | | | | | | [...] Telephone Encounter - Maggie Montoya LPN - 10/19/2017 11:54 AM PDTSpoke to patient and advi sed that if there were any pre-op orders needed prior to surgery on her wrist, she would nejennifer colin to contact the surgeon's office for his orders, then would be happy to order what is genny colin. Patient understands and accepts 1 1:56 AM PDTTelephone Encounter - Adriana Cantor - 10/19/2017 8:35 AM PDTPatient called wanting to speak with the nurse. Patient stated she was just in and forgot to ask about gett ing labs drawn. Patient has an upcoming surgery on Thursday and wanted to know if she need ed to get labs drawn prior and if so, if they could be called to [facility] in [place]. Nguyễn de would like a call back to gwen, . documented in this encounter Plan of [...] | | | | | [place] [address] | | | | | | [phone] | | | | | | | | +--------+---------+ + + + documented as of this encounter Visit Diagnoses Not on filedocumented in this encounter"
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
--- OUTSIDE RECORDS SUMMARY | ~2020-02-29 | XMS | Encounter Summary ---
Demographics + + + | Address | [address] | | | [place] [address] | + + + | Home Phone [...] Team Providers + +------+ + | Care Redeye Gunner Name | Role | Phone | + [...] Description | +--------+---------+ + + + | 05/16/ | Office | [facility] | Alanis, | Chronic diarrhea | | 2019 | Visit | MEDICINE [address] [place] [address] | MD Petrona | (Primary Dx); | | | | [address] [place], | [address] [facility] | [place] | | | | [place] [address] | [place] [address] | gastric bypass; | | | | [phone] | [phone] | Fibromyalgia; Fatty | | | | | | liver | +--------+---------+ + + + Social History [...] + + + | Blood Pressure | 80/56 | 05/16/2019 10:19 AM | | | | | PST | | + + + + + | Pulse | 55 | 05/16/2019 10:19 AM | | | | | PST | | + + + + + | Temperature | 36.5 C (97.7 F) | 05/16/2019 10:19 AM | | | | | PST | | + + + + + | Respiratory Rate | 16 | 05/16/2019 10:19 AM | | | | | PST | | + + + + + | Oxygen Saturation | 97% | 05/16/2019 10:19 AM | | | | | PST [...] encounter Progress Notes Petrona Thapa MD - 05/16/2019 10:30 AM PSTFormatting of this note might be d ifferent from the original. CHIEF COMPLAINT Chief Complaint Patient presents with Follow-up 1 month HPI Belinda Meehan is a 59 y.o. y/o female who presents today for several issues: She has history of chronic diarrhea in the context of history of Zoe-en-Y gastric bypass s urgery, necessitating continuous and rather high doses of Lomotil up to 6 tablets a day to p revent diarrhea. In addition to this sometimes uses Imodium. She ran out of the last presc ription and would like a refill. No blood in the stool. No fever or chills. Had a recent surgery on her right elbow area and she is recovering from that. Wearing the sling. She was given oxycodone after surgery but she states it did not help so she is back on her hydrocodone which she uses from another provider. No drowsiness confusion or falls. Ask about recent labs which came back reassuring, with improvement in her liver panel. Has history of fatty liver with elevated liver enzymes. ASSESSMENT & PLAN 1. Chronic diarrhea 2. History of Zoe-en-Y gastric bypass - diphenoxylate-atropine (LOMOTIL) 2.5-0.025 mg per tablet; Take 1 tablet by mouth 6 times daily. Dispense: 180 tablet; Refill: 2 3. Fibromyalgia -Continue current regimen. 4. Fatty liver -Continue current regimen. RELEVANT LABS Na Date Value Ref Range Status 04/18/2019 144 136 - 145 mmol/L Final 02/15/2019 143 136 - 145 mmol/L Final K Date Value Ref Range Status 04/18/2019 4.3 3.4 - 5.1 mmol/L Final 02/15/2019 4.7 3.4 - 5.1 mmol/L Final Cl Date Value Ref Range Status 04/18/2019 108 (H) 98 - 107 mmol/L Final 02/15/2019 109 (H) 98 - 107 mmol/L Final CO2 Date Value Ref Range Status 04/18/2019 30 20 - 31 mmol/L Final 02/15/2019 32 (H) 20 - 31 mmol/L Final Anion Gap Date Value Ref Range Status 04/18/2019 6 3 - 16 mmol/L Final 02/15/2019 2 (L) 3 - 16 mmol/L Final Glucose Date Value Ref Range Status 04/18/2019 94 60 - 106 mg/dL Final 02/15/2019 97 60 - 106 mg/dL Final BUN Date Value Ref Range Status 04/18/2019 9 9 - 23 mg/dL Final 02/15/2019 10 9 - 23 mg/dL Final Creatinine Date Value Ref Range Status 04/18/2019 0.80 0.55 - 1.02 mg/dL Final 02/15/2019 0.87 0.55 - 1.02 mg/dL Final Calcium Date Value Ref Range Status 04/18/2019 9.9 8.7 - 10.4 mg/dL Final 02/15/2019 9.8 8.7 - 10.4 mg/dL Final Magnesium Date Value Ref Range Status 12/10/2017 2.4 1.8 - 2.5 mg/dL Final Albumin Date Value Ref Range Status 04/18/2019 4.4 3.2 - 4.8 g/dL Final 02/15/2019 4.4 3.2 - 4.8 g/dL Final Albumin/Globulin Ratio Date Value Ref Range Status 04/18/2019 2.2 (H) 0.8 - 1.9 Final 02/15/2019 2.1 (H) 0.8 - 1.9 Final Globulin Date Value Ref Range Status 04/18/2019 2.0 (L) 2.1 - 3.8 g/dL Final 02/15/2019 2.1 2.1 - 3.8 g/dL Final Alkaline Phosphatase Date Value Ref Range Status 04/18/2019 83 46 - 116 U/L Final 02/15/2019 96 46 - 116 U/L Final ALT Date Value Ref Range Status 04/18/2019 25 10 - 49 U/L Final 02/15/2019 61 (H) 10 - 49 U/L Final AST Date Value Ref Range Status 04/18/2019 38 (H) 0 - 34 U/L Final 02/15/2019 59 (H) 0 - 34 U/L Final Bilirubin Total Date Value Ref Range Status 04/18/2019 0.6 0.3 - 1.2 mg/dL Final 02/15/2019 0.4 0.3 - 1.2 mg/dL Final REVIEW OF SYSTEMS Review of Systems Constitutional: Negative. HENT: Negative. Eyes: Negative. Respiratory: Negative. Cardiovascular: Negative. Gastrointestinal: Positive for diarrhea. Genitourinary: Negative. Musculoskeletal: Negative. Skin: Negative. Neurological: Negative. Endo/Heme/Allergies: Negative. Psychiatric/Behavioral: Negative. PHYSICAL EXAM VITAL SIGNS: BP (!) 80/56 | Pulse 55 | Temp 36.5 C (97.7 F) (Temporal) | Resp 16 | LMP (LMP Unknown) | SpO2 97% | No Constitutional: Well developed, No acute distress, Pleasant female. Cardiovascular: Regular rate & rhythm, No murmurs, No rubs, No gallops. No lower extremitie s edema. Thorax & Lungs: Normal chest, No respiratory distress, No crackles, wheezing, or rubs. Abdomen: Bowel sounds normal, Soft, No tenderness, no HSM, no masses. Skin: Warm, No erythema, No rash. Musculoskeletal: Decreased range of motion in right elbow, wearing a sling in her right upp er extremity. Neurologic: Alert & oriented x 3, No [...] Common migraine COPD (chronic obstructive pulmonary disease) ([facility]) Depression Diarrhea Dumping syndrome Fall at home Fatigue fracture of vertebra Fibromyalgia Full dentures GERD (gastroesophageal reflux disease) Glaucoma Hyperparathyroidism ([facility]) Hypothyroidism IBS (irritable bowel syndrome) Idiopathic scoliosis Leg edema Low back pain Lumbar postlaminectomy syndrome Lumbar radiculopathy primarily right 01/04/2015 Meniere syndrome Migraine with aura Migraines Muscle cramping Muscle spasm Myalgia Nausea Nonalcoholic hepatosteatosis Obesity Opioid dependence ([facility]) Orthostatic hypotension OLIVER (obstructive sleep apnea) Osteoarthritis, generalized Osteopenia Osteoporosis Palpitations Peripheral neuropathy Rheumatoid arthritis ([facility]) Right arm pain 01/04/2015 RLS (restless legs syndrome) S/P lumbar fusion 01/04/2015 Scoliosis Sleep apnea Spondylosis with myelopathy, lumbar region Stroke ([facility]) Syncope Tremor Type II or [...] Procedure: COLONOSCOPY; Surgeon: Luther Brito MD; Location: [facility] MEDICAL PROCEDURE UNIT DILATION AND CURETTAGE OF UTERUS ELBOW SURGERY FINGER TRIGGER RELEASE 2002 FINGER TRIGGER RELEASE 2009 GASTRIC BYPASS SURGERY 2004 HYSTERECTOMY 05/14/1980 JOINT REPLACEMENT Bilateral 2006 2007 KNEE ARTHROSCOPY 2004 LAPAROSCOPY 01/27/2015 LAPAROTOMY 2008 ROTATOR CUFF REPAIR 2004 SPINE SURGERY TONSILLECTOMY 1964 UPPER GASTROINTESTINAL ENDOSCOPY N/A 12/18/2017 Procedure: EGD; Surgeon: Luther Brito MD; Location: [facility] MEDICAL PROCEDURE UNIT CURRENT MEDICATIONS [...] Allergen Reactions Ensure Diarrhea Food Diarrhea Lactose Ossoeelmjg-Gyi-Nhnn-Codeine Other (See Comments) Balance problems Codeine Sulfate Nausea Only Food Allergy Formula Diarrhea Ensure Levofloxacin Hives, Itching and Rash Butalbital Ropinirole Amitriptyline Hcl Other (See Comments) Confused and questionable for seizures Qwdwhsfngw-Xeps-Jfllnfkw Rash duplicate Pmetgvujuw-Qlsd-Pbwqaamq Hives and Rash Cephalexin Hives Ciprofloxacin Hives and Rash Clarithromycin Hives and Rash Clindamycin Hcl Hives and Rash Doxycycline Rash Duloxetine Other (See Comments) Migraines and nausea Ketorolac Hives Levofloxacin Hives and Rash Morphine Swelling Penicillins Hives and Rash Ropinirole Hcl Hives Sulfamethoxazole-Trimethoprim Hives and Rash Tramadol Hcl Nausea Only FOLLOW-UP Return in about 3 months (around 08/15/2019). Notes: 1. Parts of this documentwere created using Prosodic speech recognition software. As a resu lt, there may be unintended word spelling errors. Every attempt was made to correct the di ctation. doculeida colin in this encounter Plan of Treatment +--------+---------+ + + + | Date | Type | Specialty | Care Team | Description | +--------+---------+ + + + | 05/17/ | Office | Internal Medicine | Alanis, | | | 2019 | Visit | | MD Petrona | | | | | | [address] [place] [address] [place] | | | | | | [place] [address] | | | | | | [phone] | | | | | | | | +--------+---------+ + + + documented as of this encounter Procedures + +--------+ + + + | Procedure Name | Priori | Date/Time | Associated Diagnosis | Comments | | | ty | | | | + +--------+ + + + | ECG - EXTERNAL SCAN | | 12/11/2018 | | Results for this | | | | 12:00 AM | | procedure are in the | | | | PDT | | results section. | + +--------+ + + + documented in this encounter Results ECG - EXTERNAL SCAN (12/11/2018 12:00 AM PDT) + + + | Narrative | Performed At | + + + | Ordered by an | | | unspecified provider. | | + + + documented in this encounter Visit Diagnoses + + | Diagnosis | + + | Chronic diarrhea - Primary Diarrhea | + + | History of Zoe-en-Y gastric bypass Bariatric surgery status | + + | Fibromyalgia Mylagia and myositis, unspecified | + + | Fatty liver Other chronic nonalcoholic liver disease | + + documented in this encounter"
--- OUTSIDE RECORDS SUMMARY | ~2020-02-29 | XMS | Encounter Summary ---
Demographics + + + | Address | [address] | | | [place] [address] | + + + | Home Phone [...] Team Providers + +------+ + | Care Architectural Design Lecturer Name | Role | Phone | + +------+ + | Crystal Gutierrez MD | PCP | | + +------+ + Encounter Details +--------+ + + + + | Date | Type | Department | Care Team | Description | +--------+ + + + + | 09/14/ | Procedure - | [facility] Division of | Endoscopy, Gi | EGD | | 2008 | | Gastroenterology/Hep | | (esophagogastroduode | | | Transcribed | atology [address] | | noscopy) | | | | [address] | | | | | | Mailcode: [id number] | | | | | | [place] | | | | | | [address] | | | | | | [place], [place] | | | | | | [address] | | | | | | [phone] | | | +--------+ + + + [...] documented as of this encounter Procedure Notes Endoscopy, Gi - 09/14/2008 8:16 AM PDTAssociated Order(s): EGD PROCEDURES:PANENDOSCOPY (EGD) CPT: 65612. PERSONNEL:THE ATTENDING PHYSICIAN WAS PRESENT DURING THE ENTIRE PROCEDURE. ENDOSCOPIST: CRYSTAL COX M.D. REFERRED BY:ELIEZER RUANO MD. EXAM LOCATION:EXAM PERFORMED IN ENDOSCOPY SUITE. OUTPATIENT PATIENT CONSENT:PROCEDURE, ALTERNATIVES, RISKS AND BENEFITS DISCUSSED, CONSENT OBTAINED, FROM PATIENT. CONSENT WAS OBTAINED BY THE PHYSICIAN. CONSENT TO BE CONTACTED WAS GIVEN. SYMPTOMS:ABDOMINAL PAIN, LOCATION: EPIGASTRIC. CURRENT MEDICATIONS:PATIENT IS NOT CURRENTLY TAKING COUMADIN. MEDICAL/SURGICAL HISTORY:JACQUIE-EN-Y GASTRIC BYPASS, ALLERGIES:PATIENT IS ALLERGIC TO KEFLEX (CEPHALEXIN) . PATIENT HABITSPATIENT SMOKES: DRINKING STATUS: NOT CURRENTLY DRINKING. PRE-EXAM PHYSICAL:PERFORMED SEP 14, 2008 P 85. BP 110/80. ENTIRE PHYSICAL EXAM WAS NORMAL. EXAM INFO:MAXIMUM DEPTH OF INSERTION DUODENUM, INTENDED DUODENUM. DURATION OF EXAM: 10 MINUTES. VOCAL CORDS NOT VISUALIZED. GASTRIC RETROFLEXION PERFORMED. IMAGES TAKEN. ASA CLASSIFICATION: II. TOLERANCE: FAIR, ADEQUATE EXAM. SEDATION MEDS:PATIENT ASSESSED AND FOUND TO BE APPROPRIATE FOR MODERATE (CONSCIOUS) SEDATION. SEDATION WAS MANAGED BY THE ENDOSCOPIST. THE PATIENT WAS NOT INTUBATED. FENTANYL 100 MCG. GIVEN IV. MIDAZOLAM 4 MG. GIVEN IV. MONITORING:BP AND PULSE MONITORING DONE. OXIMETRY USED. FLUOROSCOPY:FLUOROSCOPY WAS NOT USED. INSTRUMENT(S):GIF 180. - ANASTAMOSIS: FUNDUS. REASON FOR ANASTAMOSIS: GASTROENTEROSTOMY. COMMENT: NORMAL ANASTAMOSIS WITHOUT ULCERATION. ABNORMAL EXAMINATION, SEE FINDINGS ABOVE. UNPLANNED INTERVENTION:NO UNPLANNED INTERVENTIONS WERE REQUIRED. UNPLANNED EVENTS:THERE WERE NO COMPLICATIONS. COMMENTS:CONTINUE CARAFATE WHICH SEEMS TO RELIEVE HER SYMPTOMS. REPORT ENTERED BY: CRYSTAL COX M.D.documented in this encounter Plan of Treatment Not on filedocumented as of this encounter Procedures + +--------+ + + + | Procedure Name | Priori | Date/Time | Associated Diagnosis | Comments | | | ty | | | | + +--------+ + + + | EGD | | 09/14/2008 | | Results for this | | | | 8:16 AM | | procedure are in the | | | | PDT | | results section. | + +--------+ + + + documented in this encounter Results EGD (09/14/2008 8:16 AM PDT) + + + | Narrative | Performed At | + + + | PROCEDURES:PANENDOSCOPY (EGD) CPT: [id number]. PERSONNEL:THE | | | ATTENDING PHYSICIAN WAS PRESENT DURING THE ENTIRE PROCEDURE. | | | ENDOSCOPIST: CRYSTAL COX M.D. REFERRED BY:ELIEZER RUANO | | | . EXAM LOCATION:EXAM PERFORMED IN ENDOSCOPY SUITE. OUTPATIENT | | | PATIENT CONSENT:PROCEDURE, ALTERNATIVES, RISKS AND BENEFITS | | | DISCUSSED, CONSENT OBTAINED, FROM PATIENT. CONSENT WAS OBTAINED BY | | | THE PHYSICIAN. CONSENT TO BE CONTACTED WAS GIVEN. | | | SYMPTOMS:ABDOMINAL PAIN, LOCATION: EPIGASTRIC. CURRENT | | | MEDICATIONS:PATIENT IS NOT CURRENTLY TAKING COUMADIN. | | | MEDICAL/SURGICAL HISTORY:JACQUIE-EN-Y GASTRIC BYPASS, ALLERGIES:PATIENT | | | IS ALLERGIC TO KEFLEX (CEPHALEXIN) . PATIENT HABITSPATIENT | | | SMOKES: DRINKING STATUS: NOT CURRENTLY DRINKING. PRE-EXAM | | | PHYSICAL:PERFORMED SEP 14, 2008 P 85. BP 110/80. ENTIRE PHYSICAL | | | EXAM WAS NORMAL. EXAM INFO:MAXIMUM DEPTH OF INSERTION DUODENUM, | | | INTENDED DUODENUM. DURATION OF EXAM: 10 MINUTES. VOCAL CORDS NOT | | | VISUALIZED. GASTRIC RETROFLEXION PERFORMED. IMAGES TAKEN. ASA | | | CLASSIFICATION: II. TOLERANCE: FAIR, ADEQUATE EXAM. SEDATION | | | MEDS:PATIENT ASSESSED AND FOUND TO BE APPROPRIATE FOR MODERATE | | | (CONSCIOUS) SEDATION. SEDATION WAS MANAGED BY THE ENDOSCOPIST. THE | | | PATIENT WAS NOT INTUBATED. FENTANYL 100 MCG. GIVEN IV. MIDAZOLAM 4 | | | MG. GIVEN IV. MONITORING:BP AND PULSE MONITORING DONE. OXIMETRY | | | USED. FLUOROSCOPY:FLUOROSCOPY WAS NOT USED. INSTRUMENT(S):GIF 180. | | | - ANASTAMOSIS: FUNDUS. REASON FOR ANASTAMOSIS: GASTROENTEROSTOMY. | | | COMMENT: NORMAL ANASTAMOSIS WITHOUT ULCERATION. ABNORMAL | | | EXAMINATION, SEE FINDINGS ABOVE. UNPLANNED INTERVENTION:NO UNPLANNED | | | INTERVENTIONS WERE REQUIRED. UNPLANNED EVENTS:THERE WERE NO | | | COMPLICATIONS. COMMENTS:CONTINUE CARAFATE WHICH SEEMS TO RELIEVE HER | | | SYMPTOMS. REPORT ENTERED BY: CRYSTAL COX M.D. | | + + + + + | Procedure Note | + + | 09/14/2008 8:16 AM PDT | | PROCEDURES:PANENDOSCOPY (EGD) CPT: [id number]. | | PERSONNEL:THE ATTENDING PHYSICIAN WAS PRESENT DURING THE ENTIRE PROCEDURE. | | ENDOSCOPIST: CRYSTAL COX M.D. | | REFERRED BY:ELIEZER RUANO MD. | | EXAM LOCATION:EXAM PERFORMED IN ENDOSCOPY SUITE. OUTPATIENT | | PATIENT CONSENT:PROCEDURE, ALTERNATIVES, RISKS AND BENEFITS DISCUSSED, | | CONSENT OBTAINED, FROM PATIENT. CONSENT WAS OBTAINED BY THE PHYSICIAN. | | CONSENT TO BE CONTACTED WAS GIVEN. | | SYMPTOMS:ABDOMINAL PAIN, LOCATION: EPIGASTRIC. | | CURRENT MEDICATIONS:PATIENT IS NOT CURRENTLY TAKING COUMADIN. | | MEDICAL/SURGICAL HISTORY:JACQUIE-EN-Y GASTRIC BYPASS, | | ALLERGIES:PATIENT IS ALLERGIC TO KEFLEX (CEPHALEXIN) . | | PATIENT HABITSPATIENT SMOKES: DRINKING STATUS: NOT CURRENTLY DRINKING. | | PRE-EXAM PHYSICAL:PERFORMED SEP 14, 2008 P 85. BP 110/80. ENTIRE PHYSICAL | | EXAM WAS NORMAL. | | EXAM INFO:MAXIMUM DEPTH OF INSERTION DUODENUM, INTENDED DUODENUM. DURATION | | OF EXAM: 10 MINUTES. VOCAL CORDS NOT VISUALIZED. GASTRIC RETROFLEXION | | PERFORMED. IMAGES TAKEN. ASA CLASSIFICATION: II. TOLERANCE: FAIR, | | ADEQUATE EXAM. | | SEDATION MEDS:PATIENT ASSESSED AND FOUND TO BE APPROPRIATE FOR MODERATE | | (CONSCIOUS) SEDATION. SEDATION WAS MANAGED BY THE ENDOSCOPIST. THE | | PATIENT WAS NOT INTUBATED. FENTANYL 100 MCG. GIVEN IV. MIDAZOLAM 4 MG. | | GIVEN IV. | | MONITORING:BP AND PULSE MONITORING DONE. OXIMETRY USED. | | FLUOROSCOPY:FLUOROSCOPY WAS NOT USED. | | INSTRUMENT(S):GIF 180. | | - ANASTAMOSIS: FUNDUS. REASON FOR ANASTAMOSIS: GASTROENTEROSTOMY. COMMENT: | | NORMAL ANASTAMOSIS WITHOUT ULCERATION. | | ABNORMAL EXAMINATION, SEE FINDINGS ABOVE. | | UNPLANNED INTERVENTION:NO UNPLANNED INTERVENTIONS WERE REQUIRED. | | UNPLANNED EVENTS:THERE WERE NO COMPLICATIONS. | | COMMENTS:CONTINUE CARAFATE WHICH SEEMS TO RELIEVE HER SYMPTOMS. | | REPORT ENTERED BY: CRYSTAL COX M.D. | + + documented in this encounter Visit Diagnoses Not on filedocumented in this encounter"
--- OUTSIDE RECORDS SUMMARY | ~2020-02-29 | XMS | Encounter Summary ---
Demographics + + + | Address | [address] | | | [place] [address] | + + + | Home Phone [...] Providers + +------+ + | Care Laboratory Miller Name | Role | Phone | + [...] as of this encounter Procedure Notes Interface, Environment Artist In - 05/14/2006 2:02 AM PST CAPSULE TRANSIT INFORMATIONTOTAL TRANSIT TIME 07:52:22. COMMENTS:CAPSULE DELIVERED INTO JACQUIE LIMB ENDOSCOPICALLY PROCEDURES:SMALL BOWEL CAPSULE ENDOSCOPY: CPT: 58503. PERSONNEL:RAPID ADMINISTRATIVE TECH: PRO LE MD. NATIONAL ACCOUNT DIRECTOR: BREE BACON RA. REFERRED BY:GIULIANA JOSE MD. [...] BY: PRO LE MDElectronically signed by Interface, Environment Artist In at 1 07/14/2005 2:02 AM PSTInterface, Environment Artist In - 05/13/2006 2:02 AM PST PROCEDURES:PANENDOSCOPY (EGD) CPT: [id number]. WITH WITH CAPSULE PLACEMENT PERSONNEL:THE ATTENDING PHYSICIAN WAS PRESENT DURING THE ENTIRE PROCEDURE. FELLOW: SELIN FITZGERALD MD. LEVEL OF SUPERVISION: 2. ENDOSCOPIST: PRO LE MD. NURSE: GIULIANA SALAZAR. NATIONAL ACCOUNT DIRECTOR: COMFORT ROBBINS RN. REFERRED BY:GIULIANA JOSE MD. [...] MONITORING DONE. OXIMETRY USED. INSTRUMENT(S):GIF Q160. SERIAL #[id number]. - PRIOR SURGERY: CARDIA. COMMENTS: NORMAL JACQUIE-EN-Y [...] | + +--------+ + + + | [facility], | | 05/12/2006 | | | | INTRALUMINAL | | | | | + +--------+ + + + documented in this encounter Visit Diagnoses Not on filedocumented in this encounter"
--- OUTSIDE RECORDS SUMMARY | ~2020-02-29 | XMS | Encounter Summary ---
Demographics + + + | Address | [address] | | | [place] [address] | + + + | Home Phone [...] Team Providers + +------+ + | Care Kettle Room Helper Name | Role | Phone | + +------+ + | Petrona Thapa | PCP | | | MD | | | + +------+ + Reason for Visit +--------+--------+ + | Reason | Onset | Comments | | | Date | | +--------+--------+ + | Other | 07/28/ | | | | 2019 | | +--------+--------+ + Encounter Details +--------+ + + + + | Date | Type | Department | Care Team | Description | +--------+ + + + + | 07/28/ | Telephone | [facility] | Alanis, | Other | | 2019 | | MEDICINE [address] | MD Petrona | | | | | [place], | [address] [facility] | | | | | [place] [address] | [place] [address] | | | | | [phone] | [phone] | | | | | | | [...] Telephone Encounter - Maggie Montoya LPN - 07/28/2019 4:49 PM PSTPatient states unable to sleep at night due to her upstairs neighbor stomping above her, is trying to seek an attorne y on what can be done. Patient has an upcoming appt on 08/15/2019, informed MD out of the offi ce until Thursday. Advised to speak to neighbor or the manager card, states she has and is not get ting anywhere with them. FYLynnectronically signed by Maggie Montoya LPN at 07/28/2019 4:51 P M PSTTelephone Encounter - Susanna Boyce - 07/28/2019 4:00 PM PSTPatient called wanting t o speak to the nurse states she's not getting any rest at night. Please advise.Sherman dennis signed by Susanna Boyce at 07/28/2019 4:01 PM PSTdocumented in this encounter Plan of [...] | | | | | [place] [address] | | | | | | [phone] | | | | | | | | +--------+---------+ + + + documented as of this encounter Visit Diagnoses Not on filedocumented in this encounter"
--- OUTSIDE RECORDS SUMMARY | ~2020-02-29 | XMS | Encounter Summary ---
Demographics + + + | Address | [address] | | | [place] [address] | + + + | Home Phone [...] Providers + +------+ + | Care Senior Editor Name | Role | Phone | + +------+ + | Sulaiman Carrera MD | PCP | | + +------+ + Encounter Details +--------+ + + + + | Date | Type | Department | Care Team | Description | +--------+ + + + + | 02/08/ | Telephone | [facility] | Chris Padgett, | | | 2008 | | [place] [address] | [address] [facility] | | | | | [place] Mailcode: CH4S | [address] | | | | | [facility] | [place], [place] | | | | | and Healing, | [address] | | | | | [place] [address], [address] | [phone] | | | | | Floor [place], [place] | | | | | | [address] | | | | | | [phone] | | | +--------+ + + + [...] Telephone Encounter - Nuris Cardenas Rn - 02/08/2009 1:50 PM PDTSent to Madelyn Jones to alex rodriguez with Shadia Melton for weight regain. elephone Encounter - Lolly Beckham - 02/08/2009 12:37 PM PDTPt had surgery 5 years ago and has done really well up until last 2 months, she started taking thyroid medic ation with in the last year , patient has gained about 30lbs, patient would like to know wha t she can do to get this weight back offElectronically signed by Lolly Beckham at 12:37 PM PDTdocumented in this encounter Plan of Treatment Not on filedocumented as of this encounter Visit Diagnoses Not on filedocumented in this encounter"
--- OUTSIDE RECORDS SUMMARY | ~2020-02-29 | XMS | Encounter Summary ---
Demographics + + + | Address | [address] | | | [place] [address] | + + + | Home Phone [...] Team Providers + +------+ + | Care Hand Ironer Name | Role | Phone | + +------+ + | Pedrito Gutierrez MD | PCP | | + +------+ + Reason for Visit +--------+--------+ + | Reason | Onset | Comments | | | Date | | +--------+--------+ + | Other | 08/14/ | lab results | | | 2007 | | +--------+--------+ + Encounter Details +--------+ + + + + | Date | Type | Department | Care Team | Description | +--------+ + + + + | 08/14/ | Telephone | [facility] | VenkatisacJose LChris, | Other (lab results) | | 2006 | | [place] [address] | [address] [facility] | | | | | Bethanie Mailcode: CH4S | Naeem Clementina | | | | | [facility] | [place], [place] | | | | | and [place], | [address] | | | | | [facility] | [phone] | | | | | Floor [place], [place] | | | | | | [address] | | | | | | [phone] | | | +--------+ + + + [...] Telephone Encounter - Nuris Cardenas Rn - 08/14/2006 10:14 AM PSTB12 level still a little hig h at 914 (ref range consider high if greater than 914). Pt going to space out b12 inj q 5-6 weeks. elephone Encounter - Inga Bourgeois - 08/14/2006 9:21 AM PSTPt is calling and wants to know her lab results They were sfaxed to us last night 9 :21 AM PSTdocumented in this encounter Plan of Treatment Not on filedocumented as of this encounter Visit Diagnoses Not on filedocumented in this encounter"
--- OUTSIDE RECORDS SUMMARY | ~2020-02-29 | XMS | Encounter Summary ---
Demographics + + + | Address | [address] | | | [place] [address] | + + + | Home Phone [...] Providers + +------+ + | Care Manager Benefit Name | Role | Phone | + [...] | | | | | Procedures | [address] | | | | | | CONSULT TO | Mychal Kovacs | | | | | | NEUROLOGY | [place], [place] | | | | | | | [address] | | +--------+--------+ + + + + Reason for Visit + + + | Reason | Comments | + + + | Back pain | | + + + Encounter Details +--------+---------+ + + + | Date | Type | Department | Care Team | Description | +--------+---------+ + + + | 10/03/ | Office | [facility] Comprehensive | Miranda Lambert, | Falling; | | 2009 | Visit | Pain Center at | ANP | Fibromyalgia; LBP | | | | [facility] | | (low back pain); | | | | [address] | | Encounter for | | | | [facility] | | Long-Term (Current) | | | | and Healing, | | Use of Opioids; | | | | | | Hypothyroidism; | | | | Floor [place], [place] | | Metabolic syndrome X | | | | [address] | | 250.80; Major | | | | [phone] | | depressive disorder, | | | [...] Schedule an appointment with Dr. Cesar SHEEHAN [facility] Neurology - If you continue to fall [...] Belinda Meehan is a 49 y.o. female [facility] Comprehensive Pain Center Return Visit Chief Complaint: [...] rays of back no head imaging [facility]. Denies other medical visit s panic attacks, [...] drawing has be completed, which I reviewed. [facility] Brief Pain Inventory: (ten= worst possible pain or complete interference) Right Now: 8 (10/03/091312) Least in 24 hours: 5 (10/03/091312) Worst in 24 hours: 8 (10/03/091312) Average: 60 (10/03/091312) % Relief (med/treat): 8 (10/03/091312) General Activity: 8 (10/03/091312) Mood: 8 (10/03/091312) Walking Ability: 3 (10/03/091312) Normal Work: 10 (10/03/091312) Relations with Others: 8 (10/03/091312) Enjoyment of Life: 7 (10/03/091312) Sleep: 9 (10/03/091312) Treatment since last visit includes: 1. Medication management: Robaxin bid, OTC denies use 2. Physical Rehabilitation: non exercise routine, "would do more if if was nice outside" 3. Mental Health care: Counsellor finding it no help 4. Dr. Ricky SHEEHAN [facility] did spine surgery last seen [...] 08/2007 right knee Hx lumbar fusion 05/2008 [id number] with bone spur removals Hx appendectomy Hx cholecystectomy Hx section Hx hysterectomy Gastric bypass C. Deveney wt 278 01/18 Paniculectomy Family History Problem Relation Cancer Mother Heart Father Additional Family History Father Migraine Additional Family History Mother Migraine Tanyia Guerrero MD [facility] Neurology 2008 evaluation of migraines: Impression: Belinda Barnes is [...] the names of 3 headache specialists in [place]- Dr. Koby García, Dr. Dakota Sweet and [...] a neurologist Dr. Taniya Guerrero here at [facility] at that time headaches were due to medication rebound with detention use of opioids and m igraine abortive [...] and there is no evidence to support detention benefit of opioids for this pa in [...] to schedule a follow up appointment with [facility] neurologists Dr. Guerrero, for falls workup. Dr. [...] to taper off gabapentin 2. Order for [facility] neurology Dr. Taniya Guerrero if falls continue [...] [facility] Mail code CH 4P [facility] and [address] [address] DarrenAilyn cabello Malissa - 1:03 PM PDTCMA History: PMH/PSH/SH/FH review Patient [...] refills today? no documented in this encounter Miscellaneous Notes Scan - Other, Faculty - 10/08/2009 7:40 AM PDT can - Ediwge, Faculty - 10/08/2009 7:35 AM PDT documented in this encou nter Plan of [...]
--- OUTSIDE RECORDS SUMMARY | ~2020-02-29 | XMS | Encounter Summary ---
Demographics + + + | Address | [address] | | | [place] [address] | + + + | Home Phone [...] Team Providers + +------+ + | Care Gate Watchman Name | Role | Phone | + [...] + + | 07/01/ | Telephone | [facility] | Alanis, | Foot Pain | | 2017 | | MEDICINE [address] | MD Petrona | | | | | [place], | [address] [facility] | | | | | [place] [address] | [place] [address] | | | | | [phone] | [phone] | | | | | | | [...] go to an urgent or ER in [place] for evaluation and x-ra y. Patient understands and accepts 1 0:53 AM PSTTelephone Encounter - Susie Gilmore - 07/01/2017 8:33 AM PSTEmmy jacobsen 1. Patient called and stated that she forgot to ask for an XRAY of her left foot last week, when she went to the ER for her fall. 2. Patient states she has sharp left foot pain and swelling if her foot is not in a shoe. 3. Patient wants this order sent to [place]. Please call [phone] to discuss. 18 8:37 AM PSTdocumented in this encounter Plan of Treatment +--------+---------+ + + + | Date | Type | Specialty | Care Team | Description | +--------+---------+ + + + | 05/17/ | Office | Internal Medicine | Alanis, | | | 2019 | Visit | | MD Petrona | | | | | | [address] [place] [address] [place] | | | | | | [place] [address] | | | | | | [phone] | | | | | | | | +--------+---------+ + + + documented as of this encounter Visit Diagnoses Not on filedocumented in this encounter"
--- OUTSIDE RECORDS SUMMARY | ~2020-02-29 | XMS | Encounter Summary ---
Demographics + + + | Address | [address] | | | [place] [address] | + + + | Home Phone [...] Providers + +------+ + | Care Technology Auditor Name | Role | Phone | + +------+ + | Petrnoa Thapa | PCP | | | MD | | | + +------+ + Encounter Details +--------+ + + + + | Date | Type | Department | Care Team | Description | +--------+ + + + + | 09/22/ | [facility] | [facility] | Alanis, | Impingement syndrome | | 2018 | Encounter | [facility] [address] X[facility] | MD Petrona | of right shoulder | | | | [address] [place] | [address] [facility] | | | | | [place], [place] | [place] [address] | | | | | [address] | [phone] | | | | | [phone] | | | +--------+ + + + [...] Take 4 capsules by | 360 | 3 | 09/01/19 | | | (NEURONTIN) 300 mg | [...] | | 0 | | | | (LJ Ruiz) 0.004% | | | | | [...] | | | | | [address] | | | | | | [place] [address] | | | | | | [phone] | | | | | | | | +--------+---------+ + + + documented as of this encounter Procedures + +--------+ + + + | Procedure Name | Priori | Date/Time | Associated Diagnosis | Comments | | | ty | | | | + +--------+ + + + | XR SHOULDER RIGHT 2 | Routin | 09/22/2017 | Impingement | Results for this | | + VW | e | 10:35 AM | syndrome of right | procedure are in the | | | | PDT | shoulder | results section. | + +--------+ + + + documented in this encounter Results XR Shoulder Right 2 [...] + | Impingement syndrome of right shoulder Other affections of shoulder region, not | | elsewhere classified | + + documented in this encounter"
--- OUTSIDE RECORDS SUMMARY | ~2020-02-29 | XMS | Encounter Summary ---
Demographics + + + | Address | [address] | | | [place] [address] | + + + | Home Phone [...] Team Providers + +------+ + | Care Hardware Engineer Name | Role | Phone | [...] Rehabilitatio | syndrome of | i, | [place] | | | | n | right | Sulaiman-Russell | [place]ce Zhao, | | | | | shoulder | , MD [address] | [place] [address] | | | | | Procedures | [address] | Phone: | | | | | PT | [place], | [phone] | | | | | | [place] | Fax: | | | | | | [address] | [phone] | | | | | | Phone: | | | | | | | [phone] | | | | | | | Fax: | | | | | | | [phone] | | +--------+ + + + + [...] + + | 09/22/ | Office | [facility] | Alanis, | Impingement syndrome | | 2018 | Visit | MEDICINE [address] | MD Petrona | of right shoulder | | | | [place], | [address] [place] | (Primary Dx); Chest | | | | [place] [address] | [place] [address] | pain, unspecified | | | | [phone] | [phone] | type | | | | | [...] encounter Progress Notes Petrona Thapa MD - 09/22/2017 9:45 AM PDTFormatting of [...] (See Comments) Confused and questionable for seizures Gkmarbqfld-Reab-Ntrnkxqy Cephalexin Hives Duloxetine Migraines and nausea Ketorolac Hives Morphine Swelling Ropinirole Hcl Hives Tramadol Hcl Nausea Only Tlidkntooa-Jird-Ryhggdrr Hives and Rash Ciprofloxacin Hives and Rash [...] Right 2 + Vw; Future - * [facility] Physical Therapy - AMB Referral; Future 2. Chest pain, unspecified type - nitroglycerin (NITROSTAT) 0.4 mg SL tablet; Place 1 tablet under the tongue every 5 minut es as needed for Chest pain. Dispense: 25 tablet; Refill: 3 FOLLOW-UP Return in about 6 months (around 03/24/2018). Note: Parts of this documentwere created using Pandoodle speech recognition software. As a r esult, [...] | | | | | | [address] [facility] | | | | | | [place] [address] | | | | | | [phone] | | | | | | | [...]
--- OUTSIDE RECORDS SUMMARY | ~2020-02-29 | XMS | Encounter Summary ---
Demographics + + + | Address | [address] | | | [place] [address] | + + + | Home Phone [...] Providers + +------+ + | Care Track Oiler Name | Role | Phone | + +------+ + | Maria Esther Cintron MD | PCP | | + +------+ + Reason for Visit + +--------+ + | Reason | Onset | Comments | | | Date | | + +--------+ + | Lab Results | 10/06/ | | | | 2012 | | + +--------+ + Encounter Details +--------+ + + + + | Date | Type | Department | Care Team | Description | +--------+ + + + + | 10/06/ | Telephone | [facility] | Patricia Bnaegas, | Lab Results | | 2012 | | Center at [facility] [address] | SHIFT ENGINEER [address] | | | | | [address] | [facility] [address] | | | | | for Health and | [place], [place] | | | | | [facility] 2 | [address] | | | | | [place], [place] | [phone] | | | | | [address] | | | | | | [phone] | | | +--------+ + + + [...] this encounter Miscellaneous Notes Telephone Encounter - Sabina Briscoe - 10/06/2012 2:06 PM PDTI spoke with Belinda. Her i moose levels are elevated so she will stop 325 mg per protocol and she will discuss elevated a lk phos with her pcp. (she does take quite a large amount of tylenol) documented in this encounter Plan of Treatment Not on filedocumented as of this encounter Visit Diagnoses Not on filedocumented in this encounter"
--- OUTSIDE RECORDS SUMMARY | ~2020-02-29 | XMS | Encounter Summary ---
Demographics + + + | Address | [address] | | | [place] [address] | + + + | Home Phone [...] Providers + +------+ + | Care Car Repair Supervisor Name | Role | Phone | + +------+ + | Petrona Thapa | PCP | | | MD | | | + +------+ + Encounter Details +--------+ + + + + | Date | Type | Department | Care Team | Description | +--------+ + + + + | 10/04/ | Documentati | [facility] | Alanis, | | | 2020 | on | MEDICINE [address] | MD Petrona | | | | | [address] [place], | [address] | | | | | [place] [address] | [place] [address] | | | | | [phone] | [phone] | | | | | | | [...] | | | | | [place] [address] | | | | | | [phone] | | | | | | | | +--------+---------+ + + + documented as of this encounter Visit Diagnoses Not on filedocumented in this encounter"
--- OUTSIDE RECORDS SUMMARY | ~2020-02-29 | XMS | Encounter Summary ---
Demographics + + + | Address | [address] | | | [place] [address] | + + + | Home Phone [...] Team Providers + +------+ + | Care Coppersmith Apprentice Name | Role | Phone | [...] + + | Closed | Specialty | | Diagnoses | | Strickland, | | | Services | | Closed | Rene | Bandar Doherty DPM | | | Required | | displaced | i, | [address] | | | | | fracture of | [address] | [address] | | | | | distal | , MD [address] | [address] | | | | | phalanx of | [address] | [place], [place] | | | | | left great | [place], | [address] | | | | | toe, initial | [place] | Phone: | | | | | encounter | [address] | [phone] | | | | | | Phone: | Fax: | | | | | | [phone] | [phone] | | | | | | Fax: | | | | | | | [phone] | | +--------+ + + + + + Reason for Visit + +--------+ + | Reason | Onset | Comments | | | Date | | + +--------+ + | Results, Imaging | 11/14/ | | | | 2019 | | + +--------+ + Encounter Details +--------+ + + + + | Date | Type | Department | Care Team | Description | +--------+ + + + + | 11/14/ | Telephone | [facility] | Alanis, | Results, Imaging | | 2019 | | MEDICINE [address] | MD Petrona | | | | | [place], | [address] [place] | | | | | [place] [address] | [place] [address] | | | | | [phone] | [phone] | | | | | | | [...] Telephone Encounter - Maggie Montoya LPN - 11/15/2019 2:30 PM PDTPatient notified of xray results. Requesting referral to Dr. Strickland in [place], [place]. Already seeing him for her leg.El ectronically signed by Maggie Montoya LPN at 11/15/2019 2:30 PM PDTTelephone Encounter - Maggie Arrington LPN - 11/15/2019 2:29 PM PDT----- Message from Petrona Thapa MD s ent at 11/15/2019 1:17 PM PDT ----- The x-ray shows a minimally displaced fracture of the head of her left big toe. Let me know if she has any preference in terms of what orthopedist to refer her to.Scott moreau signed by Maggie Montoya LPN at 11/15/2019 2:29 PM PDTTelephone Encounter - Long Lovelace - 11/15/2019 2:12 PM PDTPatient is wanting her x-ray results. Please advise. documented in thi s encounter Plan of Treatment +--------+---------+ + + + | Date | Type | Specialty | Care Team | Description | +--------+---------+ + + + | 05/17/ | Office | Internal Medicine | Alanis, | | | 2019 | Visit | | MD Petrona | | | | | | [address] [facility] | | | | | | [place] [address] | | | | | | [phone] | | | | | | | [...]
--- OUTSIDE RECORDS SUMMARY | ~2020-02-29 | XMS | Encounter Summary ---
Demographics + + + | Address | [address] | | | [place] [address] | + + + | Home Phone [...] Team Providers + +------+ + | Care Neck Pinner Name | Role | Phone | + +------+ + PCP | Unavailable | + +------+ + Encounter Details +--------+ + + + + | Date | Type | Department | Care Team | Description | +--------+ + + + + | 08/09/ | Results | | Other, Faculty | | | 2002 | Only | | [phone] | | +--------+ + + + + [...] | + + + | Ordered by [facility] | [facility] | | | DEPARTMENT OF | | | PATHOLOGY | + + + + + + + + | Performing | Address | City/State/Zipcode | Phone Number | | Organization | | | | + + + + + | [facility] DEPARTMENT OF | [address] | [place] [address] | | | PATHOLOGY | [address] | | | + + + + + | [facility] | [address] | [place] [address] | | | PATHOLOGY | [address] | | | + + + + + documented in this encounter Visit Diagnoses Not on filedocumented in this encounter"
--- OUTSIDE RECORDS SUMMARY | ~2020-02-29 | XMS | Encounter Summary ---
Demographics + + + | Address | [address] | | | [place] [address] | + + + | Home Phone [...] Team Providers + +------+ + | Care Propeller Engineer Name | Role | Phone | [...] + | 05/18/ | Refill | [facility] | Alanis, | Medication Refill | | 2016 | | [facility] [address] | MD Petrona | | | | | [place], | [address] [place] | | | | | [place] [address] | [place] [address] | | | | | [phone] | | | | | | | [...] - 05/18/2017 4:11 PM PSTrx [facility] [place] [place]. Patient notified 4: 13 PM PSTTelephone [...] | | | | | [place] [address] | | | | | | [phone] | | | | | | | | +--------+---------+ + + + documented as of this encounter Visit Diagnoses Not on filedocumented in this encounter"
--- OUTSIDE RECORDS SUMMARY | ~2020-02-29 | XMS | Encounter Summary ---
Demographics + + + | Address | [address] | | | [place] [address] | + + + | Home Phone [...] Team Providers + +------+ + | Care Youth Minister Name | Role | Phone | + [...] + + | 06/02/ | Telephone | [facility] | Alanis, | Results | | 2017 | | MEDICINE [address] | MD Petrona | | | | | [place], | [address] [facility] [place] | | | | | [place] [address] | [place] [address] | | | | | [phone] | [phone] | | | | | | | [...] her MRI done on 05/26/2018. Please advise [phone] signed by Ayla Quezada at 06/02/2018 1:52 PM PSTdocumented in this encounter Plan of Treatment +--------+---------+ + + + | Date | Type | Specialty | Care Team | Description | +--------+---------+ + + + | 05/17/ | Office | Internal Medicine | Alanis, | | | 2019 | Visit | | MD Petrona | | | | | | [facility] [address] | | | | | | [place] [address] | | | | | | [phone] | | | | | | | | +--------+---------+ + + + documented as of this encounter Visit Diagnoses Not on filedocumented in this encounter"
--- OUTSIDE RECORDS SUMMARY | ~2020-02-29 | XMS | Encounter Summary ---
Demographics + + + | Address | [address] | | | [place] [address] | + + + | Home Phone [...] Team Providers + +------+ + | Care Hamper Maker Name | Role | Phone | + +------+ + | Maria Esther Cintron MD | PCP | | + +------+ + Encounter Details +--------+ + + + + | Date | Type | Department | Care Team | Description | +--------+ + + + + | 12/22/ | Telephone | [facility] | Miranda [...] [address] | | | | | | [place], [place] | | | | | | [address] | | | | | | [phone] | | | +--------+ + + + [...] Telephone Encounter - Zachary Sampson - 12/05/2011 2:11 PM PDTThis encounter has been admin istratively closed with the authorization of the [facility] Committee. elephone Encounter - Tasha Em - 12/22/2006 2:48 PM PDTI receive a approval on the Oxycontin 20mg 1 tab every 1 2 hrs.. It is good for 6 mnths if it changes it will have to have a PA again..I did call her to let her know what Was going on...CindyElectronically signed by Tasha Nolasco at 7 2:48 PM PDTTelephone Encounter - Miranda Lambert - 12/22/2006 11:10 AM PDTBelinda needs to understand not to expect Medicare to cover medications. She may have a limited plan but it seems very limited! elepho ne Encounter - Tasha Nolasco - 12/22/2006 8:13 AM PDTBelinda Jean's OxyContin was not approved bu her insurance, I have a call in to the pharmacy for some info regarding why it was not covered and I also was asking for a Phone # to the insur terri so I could get some paper work started. I did call Belinda to let her know that I am wo rking on this. documented in t his encounter Plan of Treatment Not on filedocumented as of this encounter Visit Diagnoses Not on filedocumented in this encounter"
--- OUTSIDE RECORDS SUMMARY | ~2020-02-29 | XMS | Encounter Summary ---
Demographics + + + | Address | [address] | | | [place] [address] | + + + | Home Phone [...] Providers + +------+ + | Care Hand Quilter Name | Role | Phone | + +------+ + | Petrona Thapa | PCP | | | MD | | | + +------+ + Reason for Visit + +--------+ + | Reason | Onset | Comments | | | Date | | + +--------+ + | Medication Refill | 11/26/ | | | | 2018 | | + +--------+ + Encounter Details +--------+--------+ + + + | Date | Type | Department | Care Team | Description | +--------+--------+ + + + | 11/26/ | Refill | [facility] | Aalnis, | Medication Refill | | 2018 | | [facility] [address] | MD Petrona | | | | | [place], | [address] [place] | | | | | [place] [address] | [place] [address] | | | | | [phone] | [phone] | | | | | | | [...] Telephone Encounter - Maggie Montoya LPN - 11/26/2018 1:33 PM PDTrx sent patient notifiedE lectronically signed by Maggie Montoya LPN at 11/26/2018 1:33 PM PDTTelephone Encounter - Sia Freeman - 11/26/2018 12:18 PM PDTMedication:Loperamide Strength:2 mg Directions: 4 in am and 2 in pm Quantity:180 Pharmacy: [facility] Fax: Call Date of Last Refill: Unknown Date of Last Visit: 11/15/18 Date of Next Visit: 01/17/19 Patient calling in to request refill, patient can be reached at [phone] documented in this encounte r Plan of Treatment +--------+---------+ + + + | Date | Type | Specialty | Care Team | Description | +--------+---------+ + + + | 05/17/ | Office | Internal Medicine | Alanis, | | | 2019 | Visit | | MD Petrona | | | | | | [address] [place] | | | | | | [place] [address] | | | | | | [phone] | | | | | | | | +--------+---------+ + + + documented as of this encounter Visit Diagnoses + + | Diagnosis | + + | Chronic diarrhea Diarrhea | + + documented in this encounter"
--- OUTSIDE RECORDS SUMMARY | ~2020-02-29 | XMS | Encounter Summary ---
Demographics + + + | Address | [address] | | | [place] [address] | + + + | Home Phone [...] Team Providers + +------+ + | Care Orthopedic Technician Name | Role | Phone | + +------+ + | Petrona Thapa | PCP | | | MD | | | + +------+ + Reason for Visit + + + | Reason | Comments | + + + | Medication Refill | | + + + | Infusion | Reclast due approx 07/29/17, last one done at [facility] | + + + Encounter Details +--------+---------+ + + + | Date | Type | Department | Care Team | Description | +--------+---------+ + + + | 07/16/ | Office | [facility] | Emmy-Tajti, | Other osteoporosis, | | 2018 | Visit | MEDICINE [address] | MD Petrona | unspecified | | | | [address] [place], | [address] [place] | pathological | | | | [place] [address] | [place] [address] | fracture presence | | | | [phone] | [phone] | (Primary Dx); | | | | [...] approx 07/29/17, last one done at the [facility] Belinda Meehan is a 57 y.o. [...] She is seeing a pain specialist in [place] and is receiving hydrocodone from them. She needs a refill of Lomotil for chronic diarrhea which she tolerates well. She also reports some discomfort in the left nostril which is plugged most of the time for last several weeks. No fever or chills. No purulent drainage. Has history of allergies. REVIEW OF SYSTEMS See [facility] for further details. Review of systems otherwise negative. PAST MEDICAL HISTORY Past Medical History: Diagnosis Date Arthritis Atypical chest pain Benign essential hypertension Blind left eye Cervical radiculopathy Chronic low back pain 01/04/2015 Chronic neck pain 01/04/2015 Chronic pain Chronic venous insufficiency Coccydynia COPD (chronic obstructive pulmonary disease) ([facility]) Depression Diarrhea Dumping syndrome Fatigue fracture of vertebra Fibromyalgia Glaucoma Hyperparathyroidism (HCC) Hypothyroidism IBS (irritable bowel syndrome) Idiopathic scoliosis Leg edema Lumbar postlaminectomy syndrome Lumbar radiculopathy primarily right 01/04/2015 Meniere syndrome Migraines Muscle cramping Muscle spasm Myalgia Nonalcoholic hepatosteatosis Obesity Opiate dependence (HCC) Orthostatic hypotension OLIVER (obstructive sleep apnea) Osteoarthritis, generalized Osteopenia Osteoporosis Peripheral neuropathy (HCC) Rheumatoid arthritis ([facility]) Right arm pain 01/04/2015 RLS (restless legs syndrome) S/P lumbar fusion 01/04/2015 Scoliosis Spondylosis with myelopathy, lumbar region Stroke ([facility]) Syncope Tremor Type II or unspecified [...] 1 capsule by mouth Daily. (Patient not taki ng: Reported on 07/16/2017) 30 capsule 2 fluticasone [...] (See Comments) Confused and questionable for seizures Gqoivpvkva-Abhr-Gpnzjpnp Cephalexin Hives Duloxetine Migraines and nausea Ketorolac Hives Morphine Swelling Ropinirole Hcl Hives Tramadol Hcl Nausea Only Ruqnfxyvdt-Yrsc-Dvdrhbpk Hives and Rash Ciprofloxacin Hives and Rash [...] Note: Parts of this documentwere created using VisualCV speech recognition software. As a r esult, [...] | | | | | | [address] [facility] | | | | | | [place] [address] | | | | | | [phone] | | | | | | | [...]
--- OUTSIDE RECORDS SUMMARY | ~2020-02-29 | XMS | Encounter Summary ---
Demographics + + + | Address | [address] | | | [place] [address] | + + + | Home Phone [...] Team Providers + +------+ + | Care Cupola Man Name | Role | Phone | + +------+ + | Sulaiman Carrera MD | PCP | | + +------+ + Reason for Visit + +--------+ + | Reason | Onset | Comments | | | Date | | + +--------+ + | Lab Results | 01/05/ | | | | 2012 | | + +--------+ + Encounter Details +--------+ + + + + | Date | Type | Department | Care Team | Description | +--------+ + + + + | 01/05/ | Telephone | Kra[facility] Turner | Beto Meeks MD | Lab Results | | 2012 | | [facility] | [address] | | | | | [facility] | [place], [place] | | | | | [address] | [address] | | | | | [address] | [phone] | | | | | [facility] | | | | | | Physician's | | | | | | [facility], | | | | | | [place] [address] | | | | | | [phone] | | | +--------+ + + + [...] this encounter Miscellaneous Notes Telephone Encounter - Tiesha Borges - 01/26/2013 2:51 PM PDT2nd call, pt requesting call back to discuss results of labs done on December 21, please call [phone] signe d by Tiesha Borges at 01/26/2013 2:51 PM PDTTelephone Encounter - Tiesha Borges - 01/06/20 13 2:59 PM PDTPatient requesting [facility] lab resultsElectronically sign ed by Tiesha Borges at 01/05/2013 3:00 PM PDTdocumented in this encounter Plan of Treatment Not on filedocumented as of this encounter Visit Diagnoses Not on filedocumented in this encounter"
--- OUTSIDE RECORDS SUMMARY | ~2020-02-29 | XMS | Encounter Summary ---
Demographics + + + | Address | [address] | | | [place] [address] | + + + | Home Phone [...] Providers + +------+ + | Care Insurance Special Agent Name | Role | Phone | + +------+ + | Petrona Thapa | PCP | | | MD | | | + +------+ + Reason for Visit + +--------+ + | Reason | Onset | Comments | | | Date | | + +--------+ + | Results, Imaging | 03/02/ | outside imaging report from [facility] | | | 2018 | | + +--------+ + Encounter Details +--------+ + + + + | Date | Type | Department | Care Team | Description | +--------+ + + + + | 03/02/ | Telephone | [facility] INTER[facility] | Alanis, | Results, Imaging | | 2018 | | MEDICINE [address] | MD Petrona | (outside imaging | | | | [place], | [address] [place] | report from . | | | | [place] [address] | [place] [address] | [facility]) | | | | [phone] | [phone] | | | | | | | [...] Telephone Encounter - Maggie Montoya LPN - 03/02/2019 5:43 PM PDTReceived US abdominal fro m [facility] results showing fatty liver. Patient notified and advised to discuss in more detail at next office visit documented in this encounter Plan of Treatment +--------+---------+ + + + | Date | Type | Specialty | Care Team | Description | +--------+---------+ + + + | 05/17/ | Office | Internal Medicine | Alanis, | | | 2019 | Visit | | MD Petrona | | | | | | [facility] [address] | | | | | | [place] [address] | | | | | | [phone] | | | | | | | | +--------+---------+ + + + documented as of this encounter Visit Diagnoses Not on filedocumented in this encounter"
--- OUTSIDE RECORDS SUMMARY | ~2020-02-29 | XMS | Encounter Summary ---
Demographics + + + | Address | [address] | | | [place] [address] | + + + | Home Phone [...] Providers + +------+ + | Care Vehicle Check In Clerk Name | Role | Phone | [...] Specialty | Physical | Diagnoses | | Zierezairaerg, | | | Services | Medicine and | Chronic | Emmy-Tajt | Carlos Armijo MD | | | Required | Rehabilitatio | bilateral | i, | [address] | | | | n | low back | Sulaiman-Gily | [address] [place] | | | | | pain without | MD [address] | [place] | | | | | sciatica | [address] | [address] Phone: | | | | | | [place], | [phone] | | | | | | [place] | Fax: | | | | | | [address] | [phone] | | | | | | Phone: | | | | | | | [phone] | | | | | | | Fax: | | | | | | | [phone] | | +--------+ + + + + [...] + + | 07/15/ | Telephone | [facility] INTERNAL | Alanis, | Medication Orders | | 2018 | | [address] | MD John | | | | | [place], | [address] [place] | | | | | [place] [address] | [place] [address] | | | | | [phone] | [phone] | | | | | | | [...] to be referred again to physiatry Dr. Cowatr [facility]. Please advise elep martell Encounter - John Thapa MD - 07/16/2018 11:51 AM PSTRefilled.Veto lentz signed by John Thapa MD at 07/16/2018 11:51 AM PSTTelephone Encounter - Ayla Quezada - 07/16/2018 11:33 AM PSTPatient called in to check the status of her medication refill. Please advise [phone] signed by Ayla Quezada at 07/16/2018 11:34 [...] | | | | [address] [facility] [place] | | | | | | [place] [address] | | | | | | [phone] | | | | | | | [...]
--- OUTSIDE RECORDS SUMMARY | ~2020-02-29 | XMS | Encounter Summary ---
Demographics + + + | Address | [address] | | | [place] [address] | + + + | Home Phone [...] Providers + +------+ + | Care Assembler Garment Form Name | Role | Phone | + [...] + + | 09/09/ | Telephone | [facility] | Alanis, | Phone Attempt | | 2018 | | [address] | MD Petrona | | | | | [place], | [address] [place] [address] [place] | | | | | [place] [address] | [place] [address] | | | | | [phone] | [phone] | | | | | | | [...] | | | | | [place] [address] | | | | | | [phone] | | | | | | | | +--------+---------+ + + + documented as of this encounter Visit Diagnoses Not on filedocumented in this encounter
--- OUTSIDE RECORDS SUMMARY | ~2020-02-29 | XMS | Encounter Summary ---
Demographics + + + | Address | [address] | | | [place] [address] | + + + | Home Phone [...] Team Providers + +------+ + | Care 7Th Grade Social Studies Teacher Name | Role | Phone | + +------+ + | Pedrito Gutierrez MD | PCP | | + +------+ + Encounter Details +--------+---------+ + + + | Date | Type | Department | Care Team | Description | +--------+---------+ + + + | 09/09/ | Office | Comprehensive [facility] | Nathalia Arora | Neck Pain; | | 2006 | Visit | [facility] | [address] | Spondylosis with | | | | [place] [address] | [place], | Myelopathy, Lumbar | | | | [address] [facility] | [place] [address] | Region; Herniated | | | | Health and He[facility], | | Lumbar | | | | Building | | Intervertebral Disc | | | | Floor [place], [place] | | L4-5; Fibromyalgia | | | | [address] | | syndrome 729.1 | | | | [phone] | | | +--------+---------+ + + + [...] Date: December 02, 2006 Patient: Belinda Meehan, [id number], 1960 I agree with the proposed Physical Therapy Treatment Plan. Provider: DELFINA MOLINA ANP Nathalia Garrett - 007 4:49 PM PDT Physical Therapy Medicare Progress Note Date: 09/09/2006 Belinda Meehan [id number]. 1960 Start of Care: 06/23/2006 Referring Provider: [...] with walking and sitting; driving back to [employer] 2 weeks ago, stopped at rest place and got out of care, falling onto B knees, getting better. Objective: Apparently patient's trip home 2 weeks ago was most likely related to her positi oning, ie B knees were hyperflexed for a prolonged time. She has not fallen since then, use s her lofstrand crutches consistently. Functionally, patient is walking 25 minutes at [place] at least daily and tolerating it we [...] ended: 1210 Nathalia Arora, Physical Therapist License #[id number] documented in this encoun ter Plan of [...] [place] THERAPEUTIC | Procedures | Routin | Neck [...]
--- OUTSIDE RECORDS SUMMARY | ~2020-02-29 | XMS | Encounter Summary ---
Demographics + + + | Address | [address] | | | [place] [address] | + + + | Home Phone [...] Providers + +------+ + | Care Tool Room Gear Machine Operator Name | Role | Phone [...] as of this encounter Progress Notes Interface, Material Control Clerk In - 04/07/2006 2:32 AM PDT [id number] GEOVANNI Barnes [id number] Clinic Date: 04/01/2006 Clinic: Rheumatology Belinda Meehan is here for a couple of trigger point injections. She comes from [place]. Tomorrow, she is due for an EGD [...] 4 months. Caitlin Rivera M.S., F.N.P. / [id number] / [id number] / [id number] / [id number] Electronically signed by Caitlin Rivera 04-06-2006 03:23:35 PM documented i n this encounter Plan of Treatment Not on filedocumented as of this encounter Visit Diagnoses Not on filedocumented in this encounter"
--- OUTSIDE RECORDS SUMMARY | ~2020-02-29 | XMS | Encounter Summary ---
Demographics + + + | Address | [address] | | | [place] [address] | + + + | Home Phone [...] Providers + +------+ + | Care Network Coordinator Name | Role | Phone | + +------+ + | Petrona Thapa | PCP | | | MD | | | + +------+ + Reason for Visit + + + | Reason | Comments | + + + | Injections | B12 injection | + + + Encounter Details +--------+ + + + + | Date | Type | Department | Care Team | Description | +--------+ + + + + | 09/14/ | Clinical | [facility] [place] [facility] | Alanis, | B12 deficiency | | 2019 | Support | MEDICINE [address] [place] [address] | MD Petrona | | | | | [place], | [address] [place] [address] | | | | | [place] [address] | [place] [address] | | | | | [phone] | [phone] | | | | | | | [...] + documented as of this encounter Progress Teresa Tolbert, Medical Records Manager - 09/15/2019 10:15 AM PDTFormatting of this note calderon ht be different from the original. Administrations This Visit cyanocobalamin (VITAMIN B-12) injection 1,000 mcg Admin Date 09/15/2019 Action Given Dose 1000 mcg Route Intramuscular Administered By Teresa Mitchell Medical Records Manager do cumented in this encounter Plan of Treatment +--------+---------+ + + + | Date | Type | Specialty | Care Team | Description | +--------+---------+ + + + | 05/17/ | Office | Internal Medicine | Alanis, | | | 2019 | Visit | | MD Petrona | | | | | | [address] | | | | | | [place] [address] | | | | | | [phone] | | | | | | | | +--------+---------+ + + + documented as of this encounter Visit Diagnoses + + | Diagnosis | + + | B12 deficiency Other [...] | | | | First dose on [facility] 10/15/17 at 1215 | | | [...]
--- OUTSIDE RECORDS SUMMARY | ~2020-02-29 | XMS | Encounter Summary ---
Demographics + + + | Address | [address] | | | [place] [address] | + + + | Home Phone [...] Team Providers + +------+ + | Care Circuit Court Magistrate Name | Role | Phone | + +------+ + | Petrona Thapa | PCP | | | MD | | | + +------+ + Reason for Visit +---------+--------+ + | Reason | Onset | Comments | | | Date | | +---------+--------+ + | Results | 01/05/ | | | | 2018 | | +---------+--------+ + Encounter Details +--------+ + + + + | Date | Type | Department | Care Team | Description | +--------+ + + + + | 01/05/ | Telephone | [facility] | Luther Brito MD | Results | | 2018 | | GASTROENTEROLOGY | [address] | | | | | [address] [facility] | [place], [place] | | | | | [address] [place] | [address] | | | | | [address] | [phone] | | | | | [phone] | | | +--------+ + + + [...] Telephone Encounter - Dixie Salomon RN - 01/05/2018 1:20 PM PDTSpoke with patient ovi bender egd/colon results and Dr. Brito recommendation for CT if still having severe diarrhea; patient reports diarrhea has resolved, and she has daily formed soft stools and denies abdom inal pain; she asks that we hold off on CT for now and if symptoms return then we can have h er submit stool studies first since she never completed them, and then order CT prn per Dr. Brito advice; results letter mailed and sent via my chart. documented in this encounter Plan of Treatment [...] | | | | | [place] [address] | | | | | | [phone] | | | | | | | | +--------+---------+ + + + documented as of this encounter Visit Diagnoses Not on filedocumented in this encounter"
--- OUTSIDE RECORDS SUMMARY | ~2020-02-29 | XMS | Encounter Summary ---
Demographics + + + | Address | [address] | | | [place] [address] | + + + | Home Phone [...] Providers + +------+ + | Care Material Carrier Name | Role | Phone | [...] [address] | | | | | [place], [place] | [place], [place] | | | | | [address] | [address] | | | | | [phone] | [phone] | | | | | | | [...] + + + + | [facility] DEPARTMENT OF | [address] | [place] [address] | | | PATHOLOGY | [address] | | | + + + + + | [facility] DEPARTMENT OF | [address] | [place] [address] | | | PATHOLOGY | [address] [...] DEPARTMENT OF | [address] | [place] [address] | | | PATHOLOGY | [address] | | | + + + + + | [facility] DEPARTMENT OF | [address] | [place] [address] | | | PATHOLOGY | [address] | | | + + + + + PHOSPHORUS, PLASMA (12/07/2004 6:42 AM PDT) + +-------+ + + + | Component | Value | Ref Range | Performed | Pathologist | | | | | At | Signature | + +-------+ + + + | PHOSPHORUS, | 4.3 | 2.4 - 4.7 mg/dL | [facility] | | | PLASMA | | | [...] + + | [facility] | [address] | [place] [address] | | | PATHOLOGY | [address] | | | + + + + + | [facility] | [address] | [place] [address] | | | PATHOLOGY | [address] [...] DEPARTMENT OF | [address] | [place] [address] | | | PATHOLOGY | [address] | | | + + + + + | [facility] | [address] | [place] [address] | | | PATHOLOGY | [address] | | | + + + + + documented in this encounter Visit Diagnoses Not on filedocumented in this encounter"
--- OUTSIDE RECORDS SUMMARY | ~2020-02-29 | XMS | Encounter Summary ---
Demographics + + + | Address | [address] | | | [place] [address] | + + + | Home Phone [...] Team Providers + +------+ + | Care Cannon Crewmember Name | Role | Phone | + +------+ + | Petrona Thapa | PCP | | | MD | | | + +------+ + Reason for Visit + +--------+ + | Reason | Onset | Comments | | | Date | | + +--------+ + | Appointment | 07/28/ | | | | 2017 | | + +--------+ + Encounter Details +--------+ + + + + | Date | Type | Department | Care Team | Description | +--------+ + + + + | 07/28/ | Telephone | [facility] | Alanis, | Appointment | | 2017 | | MEDICINE [address] [place] [address] | MD Petrona | | | | | [place], | [address] [facility] | | | | | [place] [address] | [place] [address] | | | | | [phone] | [phone] | | | | | | | [...] Telephone Encounter - Maggie Montoya LPN - 07/28/2017 2:56 PM PSTSpoke to patient she stat es that she is already set up next month for spinal injections through the pain clinic and gagan nieves to know if she should keep the appt with Dr. Genao. I have advised that the consult [facility] would be for possible spinal injections as well. She will call to cancel appt w amber Genao for now. MD notified of this. Patient to continue with pain clinic for pain ma dominik. Patient understands and acceptsElectronically signed by Maggie Montoya LPN at 07/28 3:18 PM PSTTelephone Encounter - Bob Melgar - 07/28/2017 1:35 PM PSTPati ent called states she would like a return phone call to discuss appointment for 07/29/2017. She is needing to know if she needs to keep it or Cancell it. Patient would like a return ph one call today if possible she needs to arrange a ride if needs to keep her appointment with Dr. Ulysses Genao [facility]. P M PSTdocumented in this encounter Plan of Treatment +--------+---------+ + + + | Date | Type | Specialty | Care Team | Description | +--------+---------+ + + + | 05/17/ | Office | Internal Medicine | Alanis, | | | 2019 | Visit | | MD Petrona | | | | | | Karla KAY | | | | | | [place] [address] | | | | | | [phone] | | | | | | | | +--------+---------+ + + + documented as of this encounter Visit Diagnoses Not on filedocumented in this encounter"
--- OUTSIDE RECORDS SUMMARY | ~2020-02-29 | XMS | Encounter Summary ---
Demographics + + + | Address | [address] | | | [place] [address] | + + + | Home Phone [...] Providers + +------+ + | Care Research Neuropsychologist Name | Role | Phone | + +------+ + | Sulaiman Carrera MD | PCP | | + +------+ + Encounter Details +--------+ + + + + | Date | Type | Department | Care Team | Description | +--------+ + + + + | 06/12/ | Telephone | [facility] | Chris Padgett, | | | 2008 | | [place] [address] | [address] [facility] | | | | | Bethanie Mailcode: [id number] | [address] | | | | | [facility] | [place], [place] | | | | | and Healing, | [address] | | | | | [facility] [address] 6th | [phone] | | | | | Floor [place], [place] | | | | | | [address] | | | | | | [phone] | | | +--------+ + + + [...] this encounter Miscellaneous Notes Telephone Encounter - Lolly Beckham - 06/12/2009 9:44 AM Jessica is calling requesting that Dr. Chris Padgett write a letter in regards to how long she has been seen by Dr. Chapman and that she still needs to be seen by him, she is having a hearing with her insurance company. You may want need to call her to get more detailed information in regards to this. Advised patient 24-48 Hour time frame documented in this encounter Plan of Treatment Not on filedocumented as of this encounter Visit Diagnoses Not on filedocumented in this encounter"
--- OUTSIDE RECORDS SUMMARY | ~2020-02-29 | XMS | Encounter Summary ---
Demographics + + + | Address | [address] | | | [place] [address] | + + + | Home Phone [...] Team Providers + +------+ + | Care Billing Collections Specialist Name | Role | Phone | + +------+ + | Petrona Thapa | PCP | | | MD | | | + +------+ + Encounter Details +--------+ + + + + | Date | Type | Department | Care Team | Description | +--------+ + + + + | 02/23/ | Hospital | [facility] | [place] | Right shoulder pain, | | 2018 | Encounter | [facility] | MD [address] | unspecified | | | | [address] | [place] [address] | chronicity | | | | [place] | [place] [address] | | | | | [address] | [phone] | | | | | [phone] | | | +--------+ + + + [...] Petrona | | | | | | [facility] [address] | | | | | | [place] [address] | | | | | | [phone] | | | | | | | [...]
--- OUTSIDE RECORDS SUMMARY | ~2020-02-29 | XMS | Encounter Summary ---
Demographics + + + | Address | [address] | | | [place] [address] | + + + | Home Phone [...] + +------+ + | Care Supervisor Of Officials Name | Role | Phone | + [...] Rd | | | | | | [facility] | | | | | | [place], [address] Floor | | | | | | [place], [place] | | | | | | [address] | | | | | | [phone] | | | +--------+ + + + [...] documented as of this encounter Miscellaneous Notes Scan - Interface, Steamboat Inspector In - 01/12/2006 1:16 AM PDT CLINIC DATE: 05/23/2002 EMG PROGRESS NOTE REFERRING PHYSICIAN: Pedrito Gutierrez M.D. CLINICAL COMMENTS: This 42-year-old woman was referred to the [facility] Neuromuscular Neurology Clinic for evaluation of possible myopathy as she has long history of diffuse muscle weakness, and on a random blood test was found to have an elevated enzymes. In addition, she has painful tingling paresthesias in the palms of both hands. MOTOR NERVE CONDUCTIONS 1. Right median nerve: A normal distal latency of 5.5 ms and diminished compound muscle action potential amplitude of 4.3 mV was recorded from the abductor pollicis brevis muscle. 2. Left median nerve: A prolonged distal latency of 4.9 ms and borderline normal CMAP amplitude of 8.2 mV was recorded from the APB muscle. The motor nerve conduction velocity in the forearm segment was normal at 55.1 m/s. 3. Left ulnar nerve: A normal distal latency of 2.9 ms and normal CMAP amplitude of 10.8 mV was recorded from the abductor digiti minimi muscle. The MNCV was normal in the forearm segment at 64.6 m/s and normal across the elbow at 64.3 m/s. 4. Left peroneal nerve: A normal distal latency of 4.2 m/s and normal CMAP amplitude of 2.1 mV was recorded from the extensor digitorum brevis muscle. The MNCV was normal in the calf segment at 43.0 m/s. F-WAVE STUDIES: The minimum F-wave latencies were normal over the left median nerve at 26.8 ms, normal over the left ulnar nerve at 27.5 ms, and normal over the left peroneal nerve at 55.5 ms. SENSORY NERVE CONDUCTIONS 1. Left median nerve: The sensory nerve action potential was recorded from the wrist with stimulation at the palm. The SNAP amplitude was normal at 33 mcV. The SNCV was diminished across the wrist at 33.3 m/s. 2. Left ulnar nerve: The SNAP was recorded from the wrist with stimulation at the palm. The SNAP amplitude was normal at 27 microvolts. The SNCV was normal at 74.1 m/s. 3. Left sural nerve: The SNAP was recorded from the lateral malleolus with stimulation at the mid calf. The SNAP amplitude was borderline at 3.1 microvolts. The SNCV was normal at 45.2 m/s. NEEDLE EXAMINATION: The following muscles were sampled using a concentric needle: Left deltoid, first dorsal interosseous muscle of the hand, and abductor pollicis brevis muscle, facies lateralis, tibialis anterior, and first dorsal interosseous muscle of the foot. In all muscles sampled, there was normal insertional activity with no fibrillation potentials or positive sharp waves. In all muscle sampled, the motor units were normal in amplitude and duration. No signs of early recruitment were noted. Lack of voluntary effort due to pain limited full analysis of recruitment and interference in a number of muscles, although brief bouts of effort showed near full recruitment and at least near full interference. IMPRESSION: This is an abnormal study. There is electrophysiologic evidence of 1. Bilateral median nerve entrapments at the wrist. 2. There was no electrophysiologic evidence of a myopathic or neuropathic process, otherwise, seen on this study. The procedure was supervised by attending physician, Aliza Delgado M.D., Ph. D. Irving Pete M.D. Neurology Neuromuscular Fellow Aliza Delgado M.D., Ph. D. TBD / [id number] / [id number] / [id number] / cc: Pedrito Gutierrez M.D. [address] [place] [address] Issac Meeks M.D. [facility] Metabolic Endocrinology Clinic ENDO document ed in this encounter Plan of [...]
--- OUTSIDE RECORDS SUMMARY | ~2020-02-29 | XMS | Encounter Summary ---
Demographics + + + | Address | [address] | | | [place] [address] | + + + | Home Phone [...] Team Providers + +------+ + | Care Lamp Shade Joiner Name | Role | Phone | + +------+ + | Petrona Thapa | PCP | | | MD | | | + +------+ + Reason for Visit +--------+--------+ + | Reason | Onset | Comments | | | Date | | +--------+--------+ + | Other | 05/06/ | | | | 2016 | | +--------+--------+ + Encounter Details +--------+ + + + + | Date | Type | Department | Care Team | Description | +--------+ + + + + | 05/06/ | Telephone | [facility] | Alanis, | Other | | 2016 | | MEDICINE [address] | MD Petrona | | | | | [place], | [address] [facility] | | | | | [place] [address] | [place] [address] | | | | | [phone] | [phone] | | | | | | | [...] Telephone Encounter - Maggie Montoya LPN - 05/06/2017 10:12 AM PSTPatient notifiedElectroni mary carmen signed by Maggie Montoya LPN at 05/06/2017 10:12 AM PSTTelephone Encounter - Malissa Snider - 05/06/2017 8:43 AM PSTContact/Caller: Belinda Contact Number: [phone] Provider/Nurse: Emmy Reason for Call: Pt returning call for nurse believes it was regarding x rays. stated she c ould be reached at [phone]. Last Appointment: 05/04/17 Next Appointment: 06/01/17 documented in this encoun ter Plan of [...] | | | | | [place] [address] | | | | | | [phone] | | | | | | | | +--------+---------+ + + + documented as of this encounter Visit Diagnoses Not on filedocumented in this encounter"
--- OUTSIDE RECORDS SUMMARY | ~2020-02-29 | XMS | Encounter Summary ---
Demographics + + + | Address | [address] | | | [place] [address] | + + + | Home Phone [...] Providers + +------+ + | Care Floor Tiling Professional Name | Role | Phone | [...] 05/29/ | Office | [facility] | Lukasz Charles, | Major Depressive | | 2005 | Visit | [address] | PhD [address] | Disorder, Recurrent | | | | Center for Health | [place], [place] | Episode, Moderate | | | | and Healing, | [address] | ([facility]); Chronic | | | | | [phone] | Abdominal Pain; | | | | Floor [place], [place] | | Cervical Pain; | | | | [address] | | Headache; Adjustment | | | | [phone] | | Disorder with | | | [...] a 46 y.o. female who lives in [place], [place] wi th her 2 sons. The [...] disability benefits. 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 Marital History: , not currently in [...] and decreasing depression and anx iety. Diagnosis: Onward I: 1. (296.32) Major depressive disorder, recurrent, moderate. 2. (309.24) Adjustment disorder with anxiety. 3. (307.89) Chronic pain disorder associated with both psychological factors and a gene ral medical condition. Onward II: Deferred Onward III: abdominal pain, migraine headache, low back pain. Onward IV: low finances Onward V: GAF 50 Recommendations: 1. Psychological counseling to increase knowledge and use of cognitive and behavioral pain coping skills is recommended. The treatment should include relaxation training to improve c ontrol over physiologic responses to pain. Treatment should also focus on decreasing sympto ms of depression and increasing participation in social, recreational and leisure activities . Ms. 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
--- OUTSIDE RECORDS SUMMARY | ~2020-02-29 | XMS | Encounter Summary ---
Demographics + + + | Address | [address] | | | [place] [address] | + + + | Home Phone [...] Team Providers + +------+ + | Care Ctrs Name | Role | Phone | + [...] | | | | [id number] | [place], [place] | | | | | [address] | [address] | | | | | [place], [place] | [phone] | | | | | [address] | | | | | | [phone] | | | +--------+ + + + [...]
--- OUTSIDE RECORDS SUMMARY | ~2020-02-29 | XMS | Encounter Summary ---
Demographics + + + | Address | [address] | | | [place] [address] | + + + | Home Phone [...] Providers + +------+ + | Care Business Segment Manager Name | Role | Phone | [...] [id number] | | | | | | [place], [place] | | | | | | [address] | | | | | | [phone] | | | +--------+ + + + [...]
--- OUTSIDE RECORDS SUMMARY | ~2020-02-29 | XMS | Encounter Summary ---
Demographics + + + | Address | [address] | | | [place] [address] | + + + | Home Phone [...] Team Providers + +------+ + | Care Factory Representative Name | Role | Phone | [...] | 12/28/ | Telephone | [facility] | Alanis, | Results, Imaging | | 2017 | | [facility] [address] | MD Petrona | | | | | [place], | [address] [place] | | | | | [place] [address] | [place] [address] | | | | | [phone] | [phone] | | | | | | | [...] not received the [place] results yet from Lilly, she will call them and have them fax to for review eleph one Encounter - Malissa Redd - 12/31/2017 2:28 PM PDTPatient called again would really like a call back today. Please call back [phone] signed by Malissa Redd at 12/31/2017 2:29 PM PDTTelephone En counter - Malissa Redd - 12/31/2017 8:21 AM PDTPatient called again and would like to k now if the results have been received. Patient is concerned they haven't been sent and would really like to have someone confirm that they have been received. [phone] signed by Malissa Redd at 12/31/2017 8:23 AM PDTTelephone En counter - Malissa Redd - 12/30/2017 11:17 AM PDTPatient called to check on status of res ults for Ultra sound that was done in [facility]. Please return patients call if results were received [phone] signed by Malissa Redd at 12/30/2017 11:19 AM PDTTelephone En counter - Juliane Elena - 12/28/2017 9:32 AM PDTPatient called stating [...] Petrona | | | | | | [address] [place] [address] [address] [place] | | | | | | [place] [address] | | | | | | [phone] | | | | | | | | +--------+---------+ + + + documented as of this encounter Visit Diagnoses Not on filedocumented in this encounter"
--- OUTSIDE RECORDS SUMMARY | ~2020-02-29 | XMS | Encounter Summary ---
Demographics + + + | Address | [address] | | | [place] [address] | + + + | Home Phone [...] Team Providers + +------+ + | Care Plate Printer Name | Role | Phone | + +------+ + | Pedrito Gutierrez MD | PCP | | + +------+ + Reason for Visit + +--------+ + | Reason | Onset | Comments | | | Date | | + +--------+ + | Refill Request | 04/28/ | | | | 2008 | | + +--------+ + Encounter Details +--------+--------+ + + + | Date | Type | Department | Care Team | Description | +--------+--------+ + + + | 04/28/ | Refill | [facility] | Lorin Chris, | Refill Request | | 2007 | | [place] [address] | [address] [facility] | | | | | [place] Mailcode: CH4S | [facility] | | | | | [facility] | [place], [place] | | | | | and Healing, | [address] | | | | | [facility] | [phone] | | | | | [place], [place] | | | | | | [address] | | | | | | [phone] | | | +--------+--------+ + + + [...] Notes Telephone Encounter - Kenisha Melton - 04/28/2008 2:19 PM PSTShe is having relief of he r abdominal pain with the Carafate, will send the refill by fax. She will see us in clinic, no complications noted. P STTelephone Encounter - Loni Molina - 04/28/2008 1:54 PM PSTPatient calling wanting her prescription of Sucalfate (Carafate) I gram oral tablet. Called in to [facility] in [place]. Please advise Patient aware it will take 24-48 hours for a response. documented in this encounter Plan of Treatment Not on filedocumented as of this encounter Visit Diagnoses Not on filedocumented in this encounter"
--- OUTSIDE RECORDS SUMMARY | ~2020-02-29 | XMS | Encounter Summary ---
Demographics + + + | Address | [address] | | | [place] [address] | + + + | Home Phone [...] Team Providers + +------+ + | Care Disease Management Nurse Name | Role | Phone | + +------+ + PCP | Unavailable | + +------+ + Encounter Details +--------+ + + + + | Date | Type | Department | Care Team | Description | +--------+ + + + + | 11/22/ | Results | | Other, Faculty | | | 2004 | Only | | [phone] | | +--------+ + + + + [...] DEPARTMENT OF | [address] | [place] [address] | | | PATHOLOGY | [address] | | | + + + + + | [facility] DEPARTMENT OF | [address] | [place] [address] | | | PATHOLOGY | [address] [...] + | Ordered by SYEDA MCKENZIE | [facility] | | | DEPARTMENT OF | | | PATHOLOGY | + + + + + + + + | Performing | Address | City/State/Zipcode | Phone Number | | Organization | | | | + + + + + | [facility] DEPARTMENT OF | [address] | [place] [address] | | | PATHOLOGY | [address] | | | + + + + + | [facility] DEPARTMENT OF | [address] | [place] [address] | | | PATHOLOGY | [address] [...] + | Ordered by SYEDA MCKENZIE | [facility] | | | DEPARTMENT OF | | | PATHOLOGY | + + + + + + + + | Performing | Address | City/State/Zipcode | Phone Number | | Organization | | | | + + + + + | [facility] DEPARTMENT OF | [address] | [place] [address] | | | PATHOLOGY | [address] | | | + + + + + | [facility] DEPARTMENT OF | [address] | [place] [address] | | | PATHOLOGY | [address] [...] + + + + | [facility] DEPARTMENT OF | [address] [facility] | [place] [address] | | | PATHOLOGY | [address] | | | + + + + + | [facility] DEPARTMENT OF | [address] [facility] | [place] [address] | | | PATHOLOGY | [address] [...] + + + + | [facility] DEPARTMENT OF | [address] | [place] [address] | | | PATHOLOGY | [address] | | | + + + + + | [facility] DEPARTMENT OF | [address] | [place] [address] | | | PATHOLOGY | [address] [...] + | Ordered by SYEDA MCKENZIE | [facility] | | | DEPARTMENT OF | | | PATHOLOGY | + + + + + + + + | Performing | Address | City/State/Zipcode | Phone Number | | Organization | | | | + + + + + | [facility] DEPARTMENT OF | [address] | [place] [address] | | | PATHOLOGY | [address] | | | + + + + + | [place] DEPARTMENT OF | [address] | [place] [address] | | | PATHOLOGY | [address] | | | + + + + + documented in this encounter Visit Diagnoses Not on filedocumented in this encounter"
--- OUTSIDE RECORDS SUMMARY | ~2020-02-29 | XMS | Encounter Summary ---
Demographics + + + | Address | [address] | | | [place] [address] | + + + | Home Phone [...] Providers + +------+ + | Care Mica Patcher Name | Role | Phone | + +------+ + | Maria Esther Cintron MD | PCP | | + +------+ + Encounter Details +--------+ + + + + | Date | Type | Department | Care Team | Description | +--------+ + + + + | 04/19/ | Telephone | [facility] | Chris Padgett, | | | 2007 | | [place] [address] | [address] [facility] | | | | | [place] Mailcode: CH4S | Naeem Mcrae | | | | | [facility] | [place], [place] | | | | | and Healing, | [address] | | | | | Building , 6th | [phone] | | | | | Floor [place], [place] | | | | | | [address] | | | | | | [phone] | | | +--------+ + + + [...] istratively closed with the authorization of the [facility] Committee. elephone Encounter - Adriana [...] [address] [place] [address] 9AM-9PM MON-FRI / 9AM-7PM SAT / 10AM-6PM SUN documented in this encou nter Plan of Treatment Not on filedocumented as of this encounter Visit Diagnoses Not on filedocumented in this encounter"
--- OUTSIDE RECORDS SUMMARY | ~2020-02-29 | XMS | Encounter Summary ---
Demographics + + + | Address | [address] | | | [place] [address] | + + + | Home Phone [...] + + | 04/06/ | Telephone | [facility] | Alanis, | Care Coordination | | 2017 | | [address] | MD [place] | | | | | [place], | [address] | | | | | [place] [address] | [place] [address] | | | | | [phone] | [phone] | | | | | | | [...] 04/08/18 for post operative follow up from [facility]'s bowel obstruction surgery and new report of breathing concerns. I have also encour aged her to seek medical attention sooner or EMS system if necessary for evaluation of breat campbell concerns. She reports has scheduled transportation to office visit from [place].Elect ronically signed by Erica Emerson RN at [...] | | | | | [place] [address] | | | | | | [phone] | | | | | | | | +--------+---------+ + + + documented as of this encounter Visit Diagnoses Not on filedocumented in this encounter"
--- OUTSIDE RECORDS SUMMARY | ~2020-02-29 | XMS | Encounter Summary ---
Demographics + + + | Address | [address] | | | [place] [address] | + + + | Home Phone [...] Team Providers + +------+ + | Care Felter Tennis Balls Name | Role | Phone | + [...] 08/12/ | Office | [facility] at [facility] | Lukasz Charles, | Major Depressive | | 2006 | Visit | [address] | PhD [address] [place] | Disorder, Recurrent | | | | Center for Health | [facility] [place] | Episode, Moderate | | | | and Healing, | [address] | ([facility]); Neck Pain; | | | | | [phone] | Migraine Headache; | | | | Floor [place], [place] | | Spondylosis with | | | | [address] | | Myelopathy, Lumbar | | | | [phone] | | Region; Adjustment | | | [...] is making an effort to improve. Diagnosis: Stow I: 1. (296.32) Major depressive disorder, recurrent, moderate. 2. (309.24) Adjustment disorder with anxiety. 3. (307.89) Chronic pain disorder associated with both psychological factors and a gene ral medical condition. Stow II: Deferred Stow III: abdominal pain, migraine headache, low back pain. Stow IV: low finances Stow V: GAF 50 Plan: Return in 2 weeks. Check pacing, relaxation, activity, distraction. Ask about coping with previous headache. Continue cognitive/behavioral therapy. Total time spent with patient was approximately 45 minutes. LUKASZ CHARLES PHD [facility] [address] [place] [address] And [facility], 4th [place] [address] documented in this encount er Plan of Treatment + + +--------+ + + | Name | Type | Priori | Associated Diagnoses | Order Schedule | | | | ty | | | + + +--------+ + + | LA PSYCHOTHERPY, | Procedures | Routin | Major Depressive | Ordered: 08/12/2006 | | OFFICE (14-45) | | e | Disorder, Recurrent | | | | | | Episode, Moderate | | | | | | ([facility]) Neck Pain | | | | [...]
--- OUTSIDE RECORDS SUMMARY | ~2020-02-29 | XMS | Encounter Summary ---
Demographics + + + | Address | [address] | | | [place] [address] | + + + | Home Phone [...] Team Providers + +------+ + | Care Mineral Ore Processing Labourer Name | Role | Phone | + +------+ + | Petrona Thapa | PCP | | | MD | | | + +------+ + Reason for Visit + +--------+ + | Reason | Onset | Comments | | | Date | | + +--------+ + | Results, Imaging | 02/18/ | | | | 2017 | | + +--------+ + Encounter Details +--------+--------+ + + + | Date | Type | Department | Care Team | Description | +--------+--------+ + + + | 02/18/ | Refill | [facility] | Alanis, | Results, Imaging | | 2017 | | MEDICINE [address] | MD Petrona | | | | | [place], | [address] | | | | | [place] [address] | [place] [address] | | | | | [phone] | [phone] | | | | | | | [...] Notes Telephone Encounter - Adriana Cantor - 02/19/2018 11:01 AM PDTPatient called back check ing on the status of her sucralfate, please call patient to advise. elephone Encounter - Maggie Montoya LPN - 11/2017 4:45 PM PDTPatient notified of MRI results elephone Encounter - Maggie Montoya LPN - 02/18/2018 4:43 PM P DTPatient notified of MRI results with comments/recommendations elephone Encounter - Maggie Montoya LPN - 02/18 4:43 PM PDT----- Message from Petrona Thapa MD sent at 02/18/2018 10:50 P DT ----- MRI shows a tendon tear in shoulder and I have sent a referral for her to see one of our or thopedists for further evaluation and treatment.Electronically signed by TRUDI Infante t 02/18/2018 4:43 PM PDTTelephone Encounter - Maggie Montoya LPN - 02/18/2018 4:42 PM PDT- ---- Message from Petrona Thapa MD sent at 02/18/2018 10:50 PDT ----- MRI shows a tendon tear in shoulder and I have sent a referral for her to see one of our or thopedists for further evaluation and treatment.Electronically signed by TRUDI Infante 02/18/2018 4:42 PM PDTTelephone Encounter - Shalonda Mcdermott - 02/18/2018 3:43 PM PDTBrayden lewis called back to follow up on medication refill request. She stated she really needs this f illed. Patient stated currently she is taking this but the medication is and she is having to double up on it because its . Please advise elephone Encounter - Mary Kay Kuo - 02/18/2018 12:53 PM PDTMedication: sucralfate Strength: 1 g Directions: 1-2 tablets every 4 hours as needed Quantity Remainin Pharmacy: [facility] Call/Mail/Tin Tie Machine Operator Automatic/Fax: fax Date of Last Refill: 09/22/17 Date of Last Visit: 02/17/18 Date of Next Visit: 03/16/18 Medication is on "history list". Patient is wanting to start medication again. Please advis e. documented in this enco unter Plan of [...] | | | | | [place] [address] | | | | | | [phone] | | | | | | | | +--------+---------+ + + + documented as of this encounter Visit Diagnoses Not on filedocumented in this encounter
--- OUTSIDE RECORDS SUMMARY | ~2020-02-29 | XMS | Encounter Summary ---
Demographics + + + | Address | [address] | | | [place] [address] | + + + | Home Phone [...] Providers + +------+ + | Care Coil Inspector Name | Role | Phone | [...] | | | [place], | [address] | | | | | Sacroiliitis | Carlos Armijo MD | [place], | | | | | , not | [address] | [place] | | | | | elsewhere | [facility] | [address] | | | | | classified | [place], [place] | Phone: | | | | | (HCC) | [address] | [phone] | | | | | Procedures | Phone: | Fax: | | | | | UT INJECT SI | [phone] | [phone] | | | | | JOINT | Fax: | | | | | | ARTHRGRPHY&/ | [phone] | | | | | | ANES/STEROID | | | | | | | W/IMAGE UT | | | | | | | [...] + + | 02/27/ | Hospital | [facility] | Joe, | Bilateral | | 2014 | Encounter | MED CTR XRAY [address] | MARY Montero [address] | sacroiliitis (HCC) | | | | [place] | [facility] [address] | (Primary Dx); | | | | [place] [address] | [place] [address] | Chronic low back | | | | [phone] | [phone] | pain; SCOLIOSIS , | | | | | | IDIOPATHIC; S/P | | | | | Film Sound Engineer, [facility]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; | | | [...] | | | | | [place] [address] | | | | | | [phone] | | | | | | | [...] Belinda Praful Meehan presents to the | [facility] | | fluoroscopy suite for fluoroscopically guided bilateral sacroiliac | [facility] | | joint steroid injections as [...] + + | [address] | [address] | [place] | [phone] | | [facility] | | [address] | | | - IMAGING | | [...] 720.0 Belinda Meehan presents to the | [facility] | | fluoroscopy suite for fluoroscopically guided bilateral sacroiliac | [facility] | | joint steroid injections as [...] [address] | [place] | [phone] | | [facility] | | [address] | | | - IMAGING | | [...]
--- OUTSIDE RECORDS SUMMARY | ~2020-02-29 | XMS | Encounter Summary ---
Demographics + + + | Address | [address] | | | [place] [address] | + + + | Home Phone [...] Providers + +------+ + | Care Supervisor Mold Shop Name | Role | Phone | + +------+ + | Pedrito Gutierrez MD | PCP | | + +------+ + Reason for Visit + +--------+ + | Reason | Onset | Comments | | | Date | | + +--------+ + | Follow-up visit | 08/26/ | | | | 2006 | | + +--------+ + Encounter Details +--------+---------+ + + + | Date | Type | Department | Care Team | Description | +--------+---------+ + + + | 08/26/ | Office | [facility] | Lukasz Charles, | Major Depressive | | 2006 | Visit | [address] | PhD [address] | Disorder, Recurrent | | | | [facility] | [place], [place] | Episode, Moderate | | | | and Healing, | [address] | ([facility]); Spondylosis | | | | | [phone] | with Myelopathy, | | | | Floor [facility] [place] | | Lumbar Region; | | | | [address] | | Herniated Lumbar | | | | [phone] | | Intervertebral Disc | | | | | | L4-5; Neck Pain; | | [...] natalie ing an effort to improve. Diagnosis: [place] I: 1. (296.32) Major depressive disorder, recurrent, moderate. 2. (309.24) Adjustment disorder with anxiety. 3. (307.89) Chronic pain disorder associated with both psychological factors and a gene ral medical condition. [place] II: Deferred [place] III: abdominal pain, migraine headache, low back pain. [place] IV: low finances [place] V: GAF 50 Plan: Return in 2 weeks. Check pacing, relaxation, activity, distraction. Check managing Pain.. . book. Continue cognitive/behavioral therapy. Total time spent with patient was approximately 45 minutes. LUKASZ CHARLES PHD [facility] [address] [facility], [address] [place] [address] [facility] Plan of Treatment + + +--------+ + + | Name | Type | Priori | Associated Diagnoses | Order Schedule | | | | ty | | | + + +--------+ + + | NE PSYCHOTHERPY, | Procedures | Routin | Major Depressive | Ordered: 08/26/2006 | | OFFICE (07-17) | | e | Disorder, Recurrent | | | | | | Episode, Moderate | | | | | | ([facility]) Spondylosis | | | | | | [...]
--- OUTSIDE RECORDS SUMMARY | ~2020-02-29 | XMS | Encounter Summary ---
Demographics + + + | Address | [address] | | | [place] [address] | + + + | Home Phone [...] Providers + +------+ + | Care Marine Erector Name | Role | Phone | [...] + + | 11/14/ | Office | [facility] | Alanis, | Situational | | 2020 | Visit | MEDICINE [address] [place] [address] | MD Petrona | depression (Primary | | | | [place], | [address] [place] [address] | Dx); B12 deficiency; | | | | [place] [address] | [place] [address] | Chronic diarrhea; | | | | [phone] | [phone] | History of Zoe-en-Y | | | [...] Common migraine COPD (chronic obstructive pulmonary disease) ([facility]) Depression Diarrhea Dumping syndrome Fall at home Fatigue fracture of vertebra Fibromyalgia Full dentures GERD (gastroesophageal reflux disease) Glaucoma Hyperparathyroidism ([facility]) Hypothyroidism IBS (irritable bowel syndrome) Idiopathic scoliosis Leg edema Low back pain Lumbar postlaminectomy syndrome Lumbar radiculopathy primarily right 01/04/2015 Meniere syndrome Migraine with aura Migraines Muscle cramping Muscle spasm Myalgia Nausea Nonalcoholic hepatosteatosis Obesity Opioid dependence ([facility]) Orthostatic hypotension OLIVER (obstructive sleep apnea) Osteoarthritis, generalized Osteopenia Osteoporosis Palpitations Peripheral neuropathy Rheumatoid arthritis ([facility]) Right arm pain 01/04/2015 RLS (restless legs syndrome) S/P lumbar fusion 01/04/2015 Scoliosis Sleep apnea Spondylosis with myelopathy, lumbar region Stroke ([facility]) Syncope Tremor Type II or [...] Procedure: COLONOSCOPY; Surgeon: Luther Brito MD; Location: [facility] MEDICAL PROCEDURE UNIT DILATION AND CURETTAGE OF UTERUS ELBOW SURGERY FINGER TRIGGER RELEASE 2003 FINGER TRIGGER RELEASE 2010 GASTRIC BYPASS SURGERY 2004 HYSTERECTOMY 05/14/1980 JOINT REPLACEMENT Bilateral 2007 2008 KNEE ARTHROSCOPY 2005 LAPAROSCOPY 01/27/2015 LAPAROTOMY 2008 ROTATOR CUFF REPAIR 2005 SPINE SURGERY TONSILLECTOMY 1964 UPPER GASTROINTESTINAL ENDOSCOPY N/A 12/18/2017 Procedure: EGD; Surgeon: Luther Brito MD; Location: [facility] MEDICAL PROCEDURE UNIT CURRENT MEDICATIONS [...] Allergen Reactions Ensure Diarrhea Food Diarrhea Lactose Biwsyzmdjg-Ryu-Sqwt-Codeine Other (See Comments) Balance problems Codeine Sulfate Nausea Only Food Allergy Formula Diarrhea Ensure Levofloxacin Hives, Itching and Rash Butalbital Ropinirole Amitriptyline Hcl Other (See Comments) Confused and questionable for seizures Hsjxsjcfmx-Vuaf-Dzunjxmc Rash duplicate Nggczmktkq-Unts-Zqmzupeq Hives and Rash Cephalexin Hives Ciprofloxacin Hives [...] 1. Parts of this documentwere created using [employer] speech recognition software. As a resu lt, there may be unintended word spelling errors. Every attempt was made to correct the di ctation. Teresa Adame Machine Silk Screen Printer - 11/15/2019 9:30 AM PDTFormatting of this note might be diff erent from the original. Administrations This Visit cyanocobalamin (VITAMIN B-12) injection 1,000 mcg Admin Date 11/15/2019 Action Given Dose 1000 mcg Route Intramuscular Administered By Teresa Mitchell Machine Silk Screen Printer do cumented in this encounter Plan of Treatment +--------+---------+ + + + | Date | Type | Specialty | Care Team | Description | +--------+---------+ + + + | 05/17/ | Office | Internal Medicine | Alanis, | | | 2019 | Visit | | MD Petrona | | | | | | [address] | | | | | | [place] [address] | | | | | | [phone] | | | | | | | [...] | | First dose on [facility] 10/15/17 at 1215 | | | [...]
--- OUTSIDE RECORDS SUMMARY | ~2020-02-29 | XMS | Encounter Summary ---
Demographics + + + | Address | [address] | | | [place] [address] | + + + | Home Phone [...] Team Providers + +------+ + | Care Spa Consultant Name | Role | Phone | [...] + + | 11/22/ | Refill | [facility] | Alanis, | Medication Refill | | 2019 | | MEDICINE [address] | MD Petrona | | | | | [place], | [address] [facility] | | | | | [place] [address] | [place] [address] | | | | | [phone] | [phone] | | | | | | | [...] | | | | | [place] [address] | | | | | | [phone] | | | | | | | | +--------+---------+ + + + documented as of this encounter Visit Diagnoses Not on filedocumented in this encounter"
--- OUTSIDE RECORDS SUMMARY | ~2020-02-29 | XMS | Encounter Summary ---
Demographics + + + | Address | [address] | | | [place] [address] | + + + | Home Phone [...] Team Providers + +------+ + | Care Mandrel Puller Name | Role | Phone | + +------+ + | Petrona Thapa | PCP | | | MD | | | + +------+ + Reason for Visit + +--------+ + | Reason | Onset | Comments | | | Date | | + +--------+ + | Referral | 06/17/ | | | | 2018 | | + +--------+ + Encounter Details +--------+ + + + + | Date | Type | Department | Care Team | Description | +--------+ + + + + | 06/17/ | Telephone | [facility] | Alanis, | Referral | | 2019 | | MEDICINE [address] | MD Petrona | | | | | [place], | [address] [facility] | | | | | [place] [address] | [place] [address] | | | | | [phone] | [phone] | | | | | | | [...] Telephone Encounter - Maggie Montoya LPN - 06/18/2018 12:05 PM PSTnotedElectronically karlos d by Maggie Montoya LPN at 06/18/2018 12:05 PM PSTTelephone Encounter - Gloria Thapa MD - 06/18/2018 11:24 AM PSTReferral sent. elephone Encounter - Sia Bai - 06/18/2018 11 :05 AM PSTPatient called back to provide what provider she would like to see it is Dr. Nikita Vallejo at the [facility] elephone Encounter - Maggie Montoya LPN - 06/18/2018 10:50 AM PSTPatient notified of comments and will call back with the name of the provider elephone Encounter - Petrona Thapa MD - 06/18/2018 9:18 AM PSTBest thing would be for her to call her insurance to see which deny rgologist they cover, and I can refer her there. elephone Encounter - Adriana Cantor - 06/17/2018 2:12 PM PSTPatient called wanting to speak with the nurse as she forgot to ask about somet cmapbell at her appointment. Patient is wanting to see about getting a referral to an brace end [facility] as she has multiple intolerances to foods and would like to get some testing done. Patient would like a call back to advise, .Electronically signed by Adriana jacobsen 06/17/2018 2:13 PM PSTdocumented in this encounter Plan of Treatment +--------+---------+ + + + | Date | Type | Specialty | Care Team | Description | +--------+---------+ + + + | 05/17/ | Office | Internal Medicine | Alanis, | | | 2019 | Visit | | MD Petrona | | | | | | [facility] [address] [facility] | | | | | | [place] [address] | | | | | | [phone] | | | | | | | | +--------+---------+ + + + documented as of this encounter Visit Diagnoses Not on filedocumented in this encounter"
--- OUTSIDE RECORDS SUMMARY | ~2020-02-29 | XMS | Encounter Summary ---
Demographics + + + | Address | [address] | | | [place] [address] | + + + | Home Phone [...] Team Providers + +------+ + | Care Cordwainer Name | Role | Phone | + [...] as of this encounter Discharge Summaries Interface, Reconditioning Associate In - 01/12/2005 6:32 AM PDTAdmission Date: [...] with Dr. Chris Padgett. Murali Frederick M.D., D.MKyrie. Chris Padgett M.D. CLAIRE/carolynn A [phone] cc: documente d in this encounter Plan of Treatment Not on filedocumented as of this encounter Visit Diagnoses Not on filedocumented in this encounter"
--- OUTSIDE RECORDS SUMMARY | ~2020-02-29 | XMS | Encounter Summary ---
Demographics + + + | Address | [address] | | | [place] [address] | + + + | Home Phone [...] Team Providers + +------+ + | Care Dormitory Supervisor Name | Role | Phone | + +------+ + | Maria Esther Cintron MD | PCP | | + +------+ + Reason for Visit + +--------+ + | Reason | Onset | Comments | | | Date | | + +--------+ + | Refill Request | 11/04/ | actonel | | | 2011 | | + +--------+ + Encounter Details +--------+--------+ + + + | Date | Type | Department | Care Team | Description | +--------+--------+ + + + | 11/04/ | Refill | [facility] | Beto Meeks MD | Refill Request | | 2010 | | [facility] | [address] | (actonel) | | | | [facility] | [place], [place] | | | | | [address] | [address] | | | | | [address] | [phone] | | | | | [facility] | | | | | | Physician's | | | | | | [facility] | | | | | | [place] [address] | | | | | | [phone] | | | +--------+--------+ + + + [...] encounter Miscellaneous Notes Telephone Encounter - Nuris Lopez - 11/04/2010 3:46 PM PDTPharmacy notified.Sherman y signed by Nuris Lopez at 11/04/2010 3:46 PM PDTTelephone Encounter - Beto Meeks MD - 3:18 PM PDTPlease send the request for refills of risedronate (Actonel) 35 mg to h er primary care physician. I have not seen her for 2 years. Thanks, BDElectronically karlos d by Beto Meeks MD at 11/04/2010 3:19 PM PDTTelephone Encounter - Nuris Lopez - 1 10:59 AM PDTLast Office Visit in [facility] was on 07/25/08 at 1:20 pm with Beto harris MD. No future appointments scheduled in [facility]. documented in this encounter Plan of Treatment Not on filedocumented as of this encounter Visit Diagnoses Not on filedocumented in this encounter"
--- OUTSIDE RECORDS SUMMARY | ~2020-02-29 | XMS | Encounter Summary ---
Demographics + + + | Address | [address] | | | [place] [address] | + + + | Home Phone [...] Team Providers + +------+ + | Care Therapeutic Recreation Leader Name | Role | Phone [...] Medication Refill | | 2018 | | [facility] [address] | MD Petrona | | | | | [place], | [address] [place] | | | | | [place] [address] | [place] [address] | | | | | [phone] | [phone] | | | | | | | [...] | | | | | [place] [address] | | | | | | [phone] | | | | | | | | +--------+---------+ + + + documented as of this encounter Visit Diagnoses + + | Diagnosis | + + | Nausea - Primary Nausea alone | + + documented in this encounter"
--- OUTSIDE RECORDS SUMMARY | ~2020-02-29 | XMS | Encounter Summary ---
Demographics + + + | Address | [address] | | | [place] [address] | + + + | Home Phone [...] Team Providers + +------+ + | Care Intake Clinician Name | Role | Phone | [...] | | | | [facility] | [place], [place] | | | | | [address] | [address] | | | | | [place], [place] | [phone] | | | | | [address] | | | | | | [phone] | | | +--------+ + + + [...] | + +---------+ + + | [facility] DEPARTMENT OF | | | | [...] | + +---------+ + + | [facility] DEPARTMENT OF | | | | | RADIOLOGY | | | | + +---------+ + + documented in this encounter Visit Diagnoses Not on filedocumented in this encounter"
--- OUTSIDE RECORDS SUMMARY | ~2020-02-29 | XMS | Encounter Summary ---
Demographics + + + | Address | [address] | | | [place] [address] | + + + | Home Phone [...] Providers + +------+ + | Care Software Developer Consultant Name | Role | Phone | [...] as of this encounter Procedure Notes Interface, Principal Technical Specialist In - 06/05/2005 5:20 AM PST [id number] GEOVANNI VAZQUEZKatie Barnes Date: 12/06/2004 Attending Surgeon: Chris Padgett M.D. Latcher(s): Preoperative Diagnosis(es): 1. Unwanted panniculectomy. 2. Unwanted inner thigh skin folds. Postoperative Diagnosis(es): Procedures Performed: Panniculectomy with bilateral inner thigh skin fold removal. Anesthesia: General endotracheal. Complications: Estimated Blood Loss: Less than 50 mL. Specimens: Indications: This is a 45-year-old female who had a gastric bypass procedure performed. She has since lost over 200 pounds and now is here for removal of her pannus. Procedure: The patient was correctly identified and taken to the operating room. General anesthetic was induced. The patient was intubated without complication. The pannus was outlined previous to the incision. Using Bovie cautery, we dissected through the skin and down to the external fascia. The pannus was dissected off the fascial layer. Hemostasis was obtained throughout the case using 2-0 silk ties as well as 2-0 Vicryl suture ligatures. After removal of the pannus, closure was obtained using multiple interrupted 2-0 to 3-0 Vicryl sutures to approximate the skin folds. Reshma were used to close the overlying skin. Prior to this, two #10 JPs were placed overlying the fascial layer. Attention was then made towards the inner thigh folds. An incision somewhat like an arrow was made, and a triangular incision was made overlying the skin folds. A similar procedure was performed as with the pannus in terms of removing the unwanted skin and fat. The skin was then approximated using 2-0 Vicryl. And the skin was closed with reshma. The same procedure was performed on the right as well as on the left. No drains were placed within the inner thighs. Dr. Chris Padgett was present for the entire procedure. All counts were also correct. The patient was the then taken to Recovery in stable condition. Sree Carrillo M.D. Chris Padgett M.D. / [id number] / [id number] / [id number] / Electronically signed by Chris Padgett 12-31-2004 03:02:45 PM documented i n this encounter Plan [...] | Transcriptions | + + | Interface, Principal Technical Specialist In - 06/05/2005 5:20 AM PST | | [id number] | | [id number] GEOVANNI Barnes | | | | Date: 12/06/2004 | | | | Attending Surgeon: Chris Padgett M.D. | | | | Latcher(s): | | | | Preoperative Diagnosis(es): | [...] to approximate the skin | | folds. Allyn were used to close the overlying skin. [...] | | BW / HS | | [id number] / [id number] / [id number] / | | | | | | | | | | | | Electronically signed by Chris Padgett 12-31-2004 03:02:45 PM | + + documented in this encounter Visit Diagnoses Not on filedocumented in this encounter"
--- OUTSIDE RECORDS SUMMARY | ~2020-02-29 | XMS | Encounter Summary ---
Demographics + + + | Address | [address] | | | [place] [address] | + + + | Home Phone [...] Providers + +------+ + | Care Supervisor Print Line Name | Role | Phone | + [...] + + | 04/08/ | Telephone | [facility] | Alanis, | Headache | | 2016 | | MEDICINE [address] | MD Petrona | | | | | [place], | [address] [facility] | | | | | [place] [address] | [place] [address] | | | | | [phone] | [phone] | | | | | | | [...] near her home (she [place] in [place], [place]) or go to the nearest Er. [...] | | | | | [place] [address] | | | | | | [phone] | | | | | | | | +--------+---------+ + + + documented as of this encounter Visit Diagnoses Not on filedocumented in this encounter"
--- OUTSIDE RECORDS SUMMARY | ~2020-02-29 | XMS | Encounter Summary ---
Demographics + + + | Address | [address] | | | [place] [address] | + + + | Home Phone [...] Providers + +------+ + | Care Forestry Professor Name | Role | Phone | [...] as of this encounter Progress Notes Interface, Locomotive Mechanic In - 01/12/2005 12:26 AM PDT [id number] GEOVANNI Barnes Clinic Date: 07/25/2004 Clinic: Rheumatology [...] weight that she has lost. At the [employer], a study was presented [...] this would be very useful compared to Ambien. She does note that Ambien is also [...] 6 months. Caitlin Rivera M.S., F.N.P. / [id number] / [id number] / [id number] / [id number] cc: Pedrito Gutierrez M.D. [address] [facility] [place] [address] Electronically signed by Caitlin Rivera 07-31-2004 12:02:37 PM documented i n this encounter Plan of Treatment Not on filedocumented as of this encounter Visit Diagnoses Not on filedocumented in this encounter"
--- OUTSIDE RECORDS SUMMARY | ~2020-02-29 | XMS | Encounter Summary ---
Demographics + + + | Address | [address] | | | [place] [address] | + + + | Home Phone [...] Team Providers + +------+ + | Care Polysom Tech Name | Role | Phone | [...] 09/23/ | Office | [facility] | Lukasz Charles, | Major Depressive | | 2006 | Visit | [address] | PhD [address] | Disorder, Recurrent | | | | [facility] | [place], [place] | Episode, Moderate | | | | and Healing, | [address] | (HCC); Chronic | | | | | [phone] | Abdominal Pain; | | | | Floor [place], [place] | | Herniated Lumbar | | | | [address] | | Intervertebral Disc | | | | [phone] | | L4-5; DJD | | | [...] progress but still neglects self-care occasionally. Diagnosis: [place] I: 1. (296.32) Major depressive disorder, recurrent, moderate. 2. (309.24) Adjustment disorder with anxiety. 3. (307.89) Chronic pain disorder associated with both psychological factors and a gene ral medical condition. [place] II: Deferred [place] III: abdominal pain, migraine headache, low back pain. [place] IV: low finances [place] V: GAF 50 Plan: Return in 2 weeks. Check preparation for move and for niece's visit, [employer], pacing, r elaxation, activity, distraction. Check managing Pain... book. Discuss need for further vi sits. Total time spent with patient was approximately 45 minutes. LUKASZ CHARLES PHD [facility] [address] [facility] [address] [place] [address] documented in this encount er Plan of Treatment + + +--------+ + + | Name | Type | Priori | Associated Diagnoses | Order Schedule | | | | ty | | | + + +--------+ + + | [facility], | Procedures | Routin | Major Depressive | Ordered: 09/23/2006 | | OFFICE ([id number]) | | e | Disorder, Recurrent | [...]
--- OUTSIDE RECORDS SUMMARY | ~2020-02-29 | XMS | Encounter Summary ---
Demographics + + + | Address | [address] | | | [place] [address] | + + + | Home Phone [...] Providers + +------+ + | Care Supervisor Estimator And Drafter Name | Role | Phone | + [...] | | | | | abdominal | [place] | [address] [facility] | | | | | pain | Health & | [facility] | | | | | Procedures | Science | [address] [place], | | | | | REQUEST TO | University | [place] | | | | | SURGERY | [address] [facility] | [address] | | | | | [facility] | [address] | Phone: | | | | | [place] | Rd | [phone] | | | | | EXPLORATORY | [place], [place] | Fax: | | | | | OF ABDOMEN | [address] | [phone] | | | | | [place] | | | | | | [...] | | | | | | [place], | | | | | | | [place] | | | | | | | [address] | | | | | | | Phone: | | | | | | | [phone] | | | | | | | Fax: | | | | | | | [phone] | +--------+--------+ + + + + Encounter Details +--------+---------+ + + + | Date | Type | Department | Care Team | Description | +--------+---------+ + + + | 11/24/ | Office | Digestive Health | Chris Ruano, | Chronic Abdominal | | 2007 | Visit | Center [address] | [address] | Pain (Primary Dx) | | | | Ave Mailcode: CH4S | [address] | | | | | [facility] | [place], [place] | | | | | and Healing, | [address] | | | | | Building 1, 6th | [phone] | | | | | Floor [place], [place] | | | | | | [address] | | | | | | [phone] | | | +--------+---------+ + + + [...] and evaluated the patient. I agree with ann-marie blanc findings and the plan of care as documented in the resident s note. CHRIS RUANO MD [facility] [address] [place] [address] [facility], [address] [place] [phone] Chris Peralta - 10:55 AM PDTThe patient has had a long history of abdominal pain and now requests ex ploration for a possible internal hernia. Will schedule. I saw the patient with Dr. Quentin willson who performed a hx and phy. oemi Bazan - 11/25/2007 1:17 PM PDT 11/25/2007 1:10 [...] Surgical History Procedure Date Gastric bypass C. Venkatenejeannie wt 278 01/18 Paniculectomy Hx cholecystectomy Hx salpingo-oophorectomy Colonoscopy 03/2006 Hx tonsillectomy Pr d&c after delivery Pr inject trigger point, 1 or 2 Hx knee replacement 02/2007 Left knee Hx hysterectomy Hx section Hx knee replacement 08/2007 right knee SH: No EtOH, 1-2 cigs per day, does not work at this time. Lives in [place], [place] FH: Noncontributory ROS: No recent fevers, [...] + + + + + | [facility] | [address] [place] [address] | [place] [address] | | | PATHOLOGY | [address] | | | + + + + + | [facility] DEPARTMENT OF | [address] [facility] | [place] [address] | | | PATHOLOGY | [address] [...] | | + +---------+ + + | [facility] DEPARTMENT OF | | | | | RADIOLOGY | | | | + +---------+ + + documented in this encounter Visit Diagnoses + + | Diagnosis | + + | Chronic abdominal pain - Primary Abdominal pain, unspecified site | + + documented in this encounter"
--- OUTSIDE RECORDS SUMMARY | ~2020-02-29 | XMS | Encounter Summary ---
Demographics + + + | Address | [address] | | | [place] [address] | + + + | Home Phone [...] Providers + +------+ + | Care Alarm Field Technician Name | Role | Phone | [...] | | Essential | | | | [place], [place] | | hypertension 401.9; | | | | [address] | | Type II or | | | | [phone] | | unspecified type | | | [...] this encounter Miscellaneous Notes Addendum Note - Irina Cardoso - 12/21/2012 3:41 PM PDT Addended by: IRINA CARDOSO on: 12/21/2012 0 3:41 PM Modules accepted: Orders documented in this encounter [...] | | | LABORATORY | | | [place] | | | SERVICES, | | | [...] [facility] | [address] | [place] [address] | | | SERVICES, CORE | PARK [...] | + + + + + | [facility] | [address] | [place] [address] | | | SERVICES, TALYA | [address] | | | + [...] | | If you are | | [place] | | | | screening for diabetes: [...] + | [facility] | [address] | [place] [address] | | | [place] | | | | + + + [...] [facility] | [address] | [place] [address] | | | SERVICES, SPECIAL | PARK [...] | + + + + + | [facility] | [address] | [place] [address] | | | SERVICES, CORE | [address] [...] | + + + + + | [facility] | [address] | [place] [address] | | | SERVICES, SPECIAL | PARK [...] by | | | | | | [employer],[address] | | | | | | [facility],[place] | | | | | | [address] | | | | | | [phone] | | | | | | Get rosario, | | | | | | Esteban [...] + + | [facility] | [address] | [place], [place] | | | [facility] | | [address] | | + + + + + [...] | SERVICES, | | *(Mark CL et al. Pediatrics 2008; 122:1128-38.) 18 [...] | + + + + + | [facility] | [address] | [place] [address] | | | SERVICES, SPECIAL | [address] [...] | | | 0.5-2.5. uIU/ml | | [facility] | | + + + + + + + + | Specimen | + + | Blood - Blood | + + + + + + + | Performing | Address | City/State/Zipcode | Phone Number | | Organization | | | | + + + + + | [facility] | [address] | [place] [address] | | | [place] | | | | + + + [...]
--- OUTSIDE RECORDS SUMMARY | ~2020-02-29 | XMS | Encounter Summary ---
Demographics + + + | Address | [address] | | | [place] [address] | + + + | Home Phone [...] Team Providers + +------+ + | Care Skin Lap Bonder Name | Role | Phone | + [...] | Osteoporosis | [address] | [facility] [address] | | | | | Procedures | [place] | [address] | | | | | CONSULT TO | [place] | Clementina Winkler | | | | | BONE | [address] | Mailcode: | | | | | DENSITOMETRY | Phone: | [address] | | | | | | [phone] | [address] [address] [place] | | | | | | Fax: | [place], [place] | | | | | | [phone] | [address] | | | | | | | Phone: | | | | | | | [phone] | | | | | | | Fax: | | | | | | | [phone] | +--------+--------+ + + + + Reason for Visit + +--------+ + | Reason | Onset | Comments | | | Date | | + +--------+ + | Appointment | 07/29/ | | | | 2007 | | [...] | | | [facility] | [place], [place] | | | | | Pavilion [address] | [address] | | | | | [address] | [phone] | | | | | [facility] | | | | | | Physician's | | | | | | Pavilion [place], | | | | | | [place] [address] | | | | | | [phone] | | | +--------+ + + + [...] Notes Telephone Encounter - Lisa Mccarthy - 08/04/2007 10:31 AM PSTOrders signed, pt informed a nd she will call the 800 number and asked to be transferred to [facility] for scheduling. Electro nically signed by Lisa Mccarthy at 08/04/2007 10:33 AM PSTTelephone Encounter - Beto Meeks - 08/03/2007 8:29 PM PSTPlease order the DEXAElectronically signed by Beto Meeks at 2007 8:29 PM PSTTelephone Encounter - Lisa Mccarthy - 07/29/2007 2:31 PM PSTDexa prior t o appt? Please advise. Consult to dexa, pended.Electronically signed by Lisa Mccarthy at 0 07/29/2007 2:31 PM PSTTelephone Encounter - Ricky Tammy L - 07/29/2007 1:55 PM PSTShania peters started Actonel about a year ago. She is coming back for an appointment with Dr. Meeks on 08/23 and she wants to know if she should get a dexa done that same day so that Dr. Meeks can refill the Actonel. Please call patient back at [phone] signed by Prabha García at 07/29/2007 1:55 PM PSTdocumented in this encounter Plan of Treatment Not on filedocumented as of this encounter Visit Diagnoses + + | Diagnosis | + + | Osteoporosis Osteoporosis, unspecified | + + documented in this encounter"
--- OUTSIDE RECORDS SUMMARY | ~2020-02-29 | XMS | Encounter Summary ---
Demographics + + + | Address | [address] | | | [place] [address] | + + + | Home Phone [...] Team Providers + +------+ + | Care Janitor Caretaker Name | Role | Phone | + +------+ + | Petrona Thapa | PCP | | | MD | | | + +------+ + Reason for Visit + +--------+ + | Reason | Onset | Comments | | | Date | | + +--------+ + | Skin Irritation | 01/04/ | | | | 2017 | | + +--------+ + Encounter Details +--------+ + + + + | Date | Type | Department | Care Team | Description | +--------+ + + + + | 01/04/ | Telephone | [facility] | Emmy-Kamlesh, | Skin Irritation | | 2017 | | MEDICINE [address] | MD Petrona | | | | | [place], | [address] | | | | | [place] [address] | [place] [address] | | | | | [phone] | [phone] | | | | | | | [...] Telephone Encounter - Maggie Montoya LPN - 01/07/2018 10:46 AM PDTPatient notified of or yisel. Rx called into pharmacy. Printed rx destroyed, shredded elephone Encounter - Petrona Thapa MD - 01/07/2018 8:07 AM PDTSent prescription for antifungal cream into her pharmacy.Electronic ally signed by Petrona Thapa MD at 01/07/2018 8:08 AM PDTTelephone Encounter - Maggie Montoya LPN - 01/06/2018 3:31 PM PDTPatient is complaining rash in the folds of sk in in the groin area, it comes and goes but now lasting about a week. Please adviseElecshabanai mary carmen signed by Maggie Montoya LPN at 01/06/2018 3:37 PM PDTTelephone Encounter - Petrona Giordano MD - 01/06/2018 12:27 PM PDTIs she looking for a cream for a rash, or jeni ething like silvadene for a burn? elephone Encounter - Juliane Elena - 01/04/2018 5:03 PM PDTPatient called stating she has a skin irration and needs something to help with irration. Stated sh e is using a foot power that does help with irration but it get's expensive and would like t o know if they will prescribe? Please advise.Electronically signed by Juliane Elena at 01/04 5:07 PM PDTdocumented in this encounter Plan of Treatment +--------+---------+ + + + | Date | Type | Specialty | Care Team | Description | +--------+---------+ + + + | 05/17/ | Office | Internal Medicine | [place], | | | 2019 | Visit | | MD Petrona | | | | | | [address] [place] [address] [place] | | | | | | [place] [address] | | | | | | [phone] | | | | | | | | +--------+---------+ + + + documented as of this encounter Visit Diagnoses + + | Diagnosis | + + | Tinea cruris - Primary Dermatophytosis of groin and perianal area | + + documented in this encounter"
--- OUTSIDE RECORDS SUMMARY | ~2020-02-29 | XMS | Encounter Summary ---
Demographics + + + | Address | [address] | | | [place] [address] | + + + | Home Phone [...] Providers + +------+ + | Care Supervisor Real Estate Office Name | Role | Phone | + [...] as of this encounter Progress Notes Interface, Test Designer In - 07/03/2006 2:33 AM PST [id number] GEOVANNI [facility] [id number] Clinic Date: 06/24/2006 Clinic: Rheumatology Subjective: Bel[place] Meehan is a 46-year-old woman here for followup of fibromyalgia. She comes from [place] and is now also working with the [...] I will have a meeting soon with [facility] to start doing my films here, [...] 2 months. Caitlin Rivera M.S., F.N.P. / [id number] / [id number] / [id number] / [id number] cc: [facility]NG[facility] Electronically signed by Caitlin Rivera 07-02-2006 11:27:56 AM documented in this encounter Plan of Treatment Not on filedocumented as of this encounter Visit Diagnoses Not on filedocumented in this encounter"
--- OUTSIDE RECORDS SUMMARY | ~2020-02-29 | XMS | Encounter Summary ---
Demographics + + + | Address | [address] | | | [place] [address] | + + + | Home Phone [...] Team Providers + +------+ + | Care Hook And Eye Attacher Name | Role | Phone | + +------+ + | Pedrito Gutierrez MD | PCP | | + +------+ + Reason for Visit + +--------+ + | Reason | Onset | Comments | | | Date | | + +--------+ + | Prescription renewal | 03/26/ | | | | 2008 | | + +--------+ + Encounter Details +--------+ + + + + | Date | Type | Department | Care Team | Description | +--------+ + + + + | 03/26/ | Telephone | Orthopaedics at | Hai Hoyos, | Prescription renewal | | 2008 | | [facility] [address] | MD | | | | | [address] | | | | | | Mailcode: PV430 | | | | | | [facility] | | | | | | [place], [place] | | | | | | [address] | | | | | | [phone] | | | +--------+ + + + [...] encounter Miscellaneous Notes Telephone Encounter - Lisa Wilder - 03/27/2009 9:16 AM PDT Rx mailed.Pt informed earlier t hat she needs starting to wean off. A M PDTTelephone Encounter - Donna Clancy PA - 03/27/2009 9:10 AM PDTPrinted. Reduce d dose of oxycontin to 20mg to help weaning. elephone Encounter - Donna Clancy PA - 03/26/2009 2:58 PM PDTPlease refill but advise pt that she should begin weaning off oxycontin then oxycodon e. elephone Lisa Baeza - 03/26/2009 11:35 AM PDTPt takes 2 tablets of oxycodone every 4-6 hours a nd 1 tablet of oxycontin every 12 hours. She states that trying to wean down. Pt would like her rxs to be mailed. elephone Lisa Carpenter - 03/26/2009 11:15 AM PDTCalled and left a message. Asked pt to wendi l us back. Please, ask her how much pain medications she's currently taking and if she start ed weaning down or connect pt with me. 11:1 5 AM PDTTelephone Encounter - Donna Clancy PA - 03/26/2009 10:33 AM PDTHas she start ed weaning down yet? P DTTelephone Encounter - Rea Cintron PA - 03/26/2009 9:09 AM PDTThis is a huge dosage o f medication. Pended an order. Do not release unless Donna OK's. Will wait for her to sarahi vinson. elephone Laila Hart Cha - 03/26/2009 8:51 AM PDTSurgical Procedure: 1. Curettage and bone grafting of the left scapular lesion. 2. Open biopsy, left scapular lesion. Date of Surgery: 02-22-09 Medication oxycontin and oxycodone immediate release Quantity 40 oxycontin. 80 oxycodone Dosage: 40mg, oxycontin. 10mg oxycodone How often are you taking it?: Taking 1 tab every 12 hours of oxycontin. Taking 2 tabs ever y 4 to 5 hrs of oxycodone. Last filled 9-10 for oxycontin. 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
--- OUTSIDE RECORDS SUMMARY | ~2020-02-29 | XMS | Encounter Summary ---
Demographics + + + | Address | [address] | | | [place] [address] | + + + | Home Phone [...] Team Providers + +------+ + | Care Guard Captain Name | Role | Phone | + +------+ + | Petrona Thapa | PCP | | | MD | | | + +------+ + Reason for Visit + +--------+ + | Reason | Onset | Comments | | | Date | | + +--------+ + | Injections | 10/05/ | | | | 2019 | | + +--------+ + Encounter Details +--------+ + + + + | Date | Type | Department | Care Team | Description | +--------+ + + + + | 10/05/ | Telephone | [facility] | [place], | Injections | | 2019 | | MEDICINE [address] | MD Petrona | | | | | [place], | [address] [facility] | | | | | [place] [address] | [place] [address] | | | | | [phone] | [phone] | | | | | | | [...] Telephone Encounter - Maggie Montoya LPN - 10/06/2019 4:40 PM PDTLeft message on patient's voicemail on cell phone to call back to schedule for nurse visit for B12 injection if willi ng to come in or ok to wait until Covid restrictions are lifted elephone Encounter - Maggie Montoya LPN - 0 1:59 PM PDTPhone is constantly busy will call back elephone Encounter - Susanna Boyce - 10/06/2019 10:55 AM PD TPatient called in requesting b-12 injection. Please advise. documented in this encounter Plan of Treatment +--------+---------+ + + + | Date | Type | Specialty | Care Team | Description | +--------+---------+ + + + | 05/17/ | Office | Internal Medicine | Alanis, | | | 2019 | Visit | | MD Petrona | | | | | | [address] [place] [address] [place] | | | | | | [place] [address] | | | | | | [phone] | | | | | | | | +--------+---------+ + + + documented as of this encounter Visit Diagnoses Not on filedocumented in this encounter"
--- OUTSIDE RECORDS SUMMARY | ~2020-02-29 | XMS | Encounter Summary ---
Demographics + + + | Address | [address] | | | [place] [address] | + + + | Home Phone [...] Team Providers + +------+ + | Care Loan Administrator Name | Role | Phone | [...] [facility] | | | | | | [place], [place] | | | | | | [address] | | | | | | [phone] | | | +--------+ + + + [...] to ins urance reasons. Pt will call [phone] if she has any further questions. Electronically s igned by Lyle Esquivel at 02/27/2009 9:24 AM PDTTelephone Encounter - Donna Clancy PA - 02/27/2009 8:40 AM PDTPlease advise that is fine. Shouldn't need an order. Will n eed to come for 6 week post op, so we can obtain xrays. Please fax op note to pt's rianna valdivia doctor. elephone Encounter - aLila Gregg - 02/27/2009 8:35 AM PDTName of caller: Belinda Reason for call: Patient is wondering if Dr. Vasquez, referring doctor, can see her for first post-op due to distance. Should he have an order. PH: [phone]. . Would also like to have us [...]
--- OUTSIDE RECORDS SUMMARY | ~2020-02-29 | XMS | Encounter Summary ---
Demographics + + + | Address | [address] | | | [place] [address] | + + + | Home Phone [...] Team Providers + +------+ + | Care Resourcing Consultant Name | Role | Phone | + +------+ + | Petrona Thapa | PCP | | | MD | | | + +------+ + Reason for Visit + +--------+ + | Reason | Onset | Comments | | | Date | | + +--------+ + | Appointment Question | 10/05/ | | | | 2018 | | + +--------+ + Encounter Details +--------+ + + + + | Date | Type | Department | Care Team | Description | +--------+ + + + + | 10/05/ | Telephone | [facility] INTER[facility] | Alanis, | Appointment Question | | 2018 | | MEDICINE [address] | MD Petrona | | | | | [place], | [address] | | | | | [place] [address] | [place] [address] | | | | | [phone] | [phone] | | | | | | | [...] Telephone Encounter - Maggie Montoya LPN - 10/08/2018 1:56 PM PDTPatient notified of MD bailey mments elephone Petrona Oneil MD - 10/08/2018 7:25 AM PDTYes, typically we give it for 3-4 years in a row, then we take a break. elephone Encounter - Maggie Montoya LPN - 10/05/2018 4:29 PM PDTPatient had a question about the Reclast infusions, she is scheduled next month for th e infusion and yearly after that, but is there only a number of times that it can be given. Please advise elephone Encounter - Sakshi Adriana Malissa - 10/05/2018 2:59 PM PDTPatient called asking to speak with the nurse. Patient stated she has a few questions about her upcoming appointment for her in fusion for her osteoporosis. Please call patient to advise, . Electronically si gned by Adriana Cantor at 10/05/2018 3:00 PM PDTdocumented in this encounter Plan of Treatment +--------+---------+ + + + | Date | Type | Specialty | Care Team | Description | +--------+---------+ + + + | 05/17/ | Office | Internal Medicine | Alanis, | | | 2019 | Visit | | MD Petrona | | | | | | [address] | | | | | | [place] [address] | | | | | | [phone] | | | | | | | | +--------+---------+ + + + documented as of this encounter Visit Diagnoses Not on filedocumented in this encounter"
--- OUTSIDE RECORDS SUMMARY | ~2020-02-29 | XMS | Encounter Summary ---
Demographics + + + | Address | [address] | | | [place] [address] | + + + | Home Phone [...] Providers + +------+ + | Care Machine Feed Operator Name | Role | Phone | + +------+ + | Petrona Thapa | PCP | | | MD | | | + +------+ + Reason for Visit + +--------+ + | Reason | Onset | Comments | | | Date | | + +--------+ + | Paperwork | 04/25/ | | | | 2019 | | + +--------+ + | Pre-Op | 04/25/ | | | | 2019 | | + +--------+ + Encounter Details +--------+ + + + + | Date | Type | Department | Care Team | Description | +--------+ + + + + | 04/25/ | Telephone | [facility] | Alanis, | Paperwork; Pre-Op | | 2018 | | MEDICINE [address] | MD Petrona | | | | | [place], | [address] [place] | | | | | [place] [address] | [place] [address] | | | | | [phone] | [phone] | | | | | | | [...] Telephone Encounter - Maggie Montoya LPN - 04/25/2019 9:26 AM PSTFax placed on MD desk for completion elephone En mauro - Tiesha Rasmussen - 04/25/2019 9:16 AM PSTTanya [facility] stating that they faxed clearance paperwork over for patient on Thursday. She is calling to check on the status of the paperwork. She states that patient is scheduled for tomorrow for a right shoulder orthoscopy for a rotator cuff tear. Please advise. documented in this encounter Plan [...] | | | | | [place] [address] | | | | | | [phone] | | | | | | | | +--------+---------+ + + + documented as of this encounter Visit Diagnoses Not on filedocumented in this encounter"
--- OUTSIDE RECORDS SUMMARY | ~2020-02-29 | XMS | Encounter Summary ---
Demographics + + + | Address | [address] | | | [place] [address] | + + + | Home Phone [...] Team Providers + +------+ + | Care Plumbing Warehouse Helper Name | Role | Phone | + +------+ + | Sulaiman Carrera MD | PCP | | + +------+ + Reason for Visit + +--------+ + | Reason | Onset | Comments | | | Date | | + +--------+ + | Lab Results | 03/03/ | | | | 2007 [...] | | | [facility] | [place], [place] | | | | | [address] | [address] | | | | | [address] | [phone] | | | | | [facility] | | | | | | Physician's | | | | | | Pavilion [place], | | | | | | [place] [address] | | | | | | [phone] | | | +--------+ + + + [...] this encounter Miscellaneous Notes Telephone Encounter - Aissatou Soto - 03/17/2008 2:03 PM PDTPatient returned Lisa's call. She wanted to let Lisa know that she is retaining water and needs advice about going off h er water pills. elephone EncLisa Greenberg - 03/07/2008 4:22 PM PDTS/w pt and informed her, per pbd vmail, moris t results were unremarkable. Pt inquired about neurology referral, informed her of status and to call back on t o confirm completion eleph one Encounter - Tammy García - 03/07/2008 9:49 AM PDTPatient called back regarding he r lab results. She did not get a call from Dr. Meeks or the MA yesterday as promised. I sp sailaja with Lisa and she said Dr. Meeks picked up lab results yesterday and should call slick t today. She will remind him to do so in clinic today. This was relayed to the patient.Maida ctronically signed by Tammy García at 03/07/2008 9:49 AM PDTTelephone Encounter - Astrid Daniels - 03/06/2008 12:33 PM PDTPatient called back. Physician has already been paged. MA will follow-up this afternoon. Note: Patient will be gone this afternoon from 3-4 pm.Elect ronically signed by Astrid Daniels at 03/06/2008 12:33 PM PDTTelephone Encounter - Lisa Mccarthy - 03/03/2008 4:[address] Dove folder on my desk. Dr. Meeks wa s paged regarding this. elephone Encounter - Sia Lorenz - 03/03/2008 4:04 PM PDTPt called and would like to get her lab results. documented in this enco unter Plan of Treatment Not on filedocumented as of this encounter Visit Diagnoses Not on filedocumented in this encounter"
--- OUTSIDE RECORDS SUMMARY | ~2020-02-29 | XMS | Encounter Summary ---
Demographics + + + | Address | [address] | | | [place] [address] | + + + | Home Phone [...] Providers + +------+ + | Care Air Box Tester Name | Role | Phone | + +------+ + | Petrona Thapa | PCP | | | MD | | | + +------+ + Reason for Visit + +--------+ + | Reason | Onset | Comments | | | Date | | + +--------+ + | Medication Refill | 10/11/ | | | | 2020 | | + +--------+ + Encounter Details +--------+--------+ + + + | Date | Type | Department | Care Team | Description | +--------+--------+ + + + | 10/11/ | Refill | [facility] | Alanis, | Medication Refill | | 2019 | | MEDICINE [address] | MD Petrona | | | | | [place], | [address] [place] | | | | | [place] [address] | [place] [address] | | | | | [phone] | | | | | | | [...] | | | | | [place] [address] | | | | | | [phone] | | | | | | | | +--------+---------+ + + + documented as of this encounter Visit Diagnoses Not on filedocumented in this encounter"
--- OUTSIDE RECORDS SUMMARY | ~2020-02-29 | XMS | Encounter Summary ---
Demographics + + + | Address | [address] | | | [place] [address] | + + + | Home Phone [...] Providers + +------+ + | Care Roll Shop Supervisor Name | Role | Phone | + +------+ + PCP | Unavailable | + +------+ + Encounter Details +--------+ + + + + | Date | Type | Department | Care Team | Description | +--------+ + + + + | 12/21/ | Results | Rheumatology | Caitlin Rivera, | | | 2003 | Only | [address] [address] | INFORMATICIST | | | | | Sharmila Schilling | | | | | | Mailcode: OPC5 | | | | | | Outpatient Clinic | | | | | | Building [facility] | | | | | | [place] [address] | | | | | | [phone] | | | +--------+ + + + [...] Iron and TIBC, Serum Test performed by [facility] | | | [facility]. | | + + + + + + + + | Performing | Address | City/State/Zipcode | Phone Number | | Organization | | | | + + + + + | [facility] | [address] | [place] [address] | | | LABORATORY | | | [...] Colin | | | | | | [facility] | | | | | | Laboratories. | | | | + + + + + + + + | Specimen | + + | | + + + + + + + | Performing | Address | City/State/Zipcode | Phone Number | | Organization | | | | + + + + + | [facility] | [address] | [place] [address] | | | LABORATORY | | | [...] | | | | | performed at [place] | | | | | | [facility] | | | | | | Laboratory | | | | + + + + + + + + | Specimen | + + | | + + + + + + + | Performing | Address | City/State/Zipcode | Phone Number | | Organization | | | | + + + + + | [facility] | [address] | [place] [address] | | | LABORATORY | | | | + + + + + documented in this encounter Visit Diagnoses Not on filedocumented in this encounter"
--- OUTSIDE RECORDS SUMMARY | ~2020-02-29 | XMS | Encounter Summary ---
Demographics + + + | Address | [address] | | | [place] [address] | + + + | Home Phone [...] Providers + +------+ + | Care On Car Supervisor Name | Role | Phone | + +------+ + | Pedrito Gutierrez MD | PCP | | + +------+ + Reason for Visit + +--------+ + | Reason | Onset | Comments | | | Date | | + +--------+ + | Follow-up visit | 06/21/ | | | | 2008 | | + +--------+ + Consultation (Routine) +--------+--------+ + + + + | Status | Reason | Specialty | Diagnoses / | Referred By | Referred To | | | | | Procedures | Contact | Contact | +--------+--------+ + + + + | Closed | | Pain | Diagnoses | Miracle, | [place], | | | | Management | LBP (low | NIHARIKA Jean | Lukasz Rhodes, PhD | | | | | back pain) | [address] | [address] | | | | | DJD | [address] | Ave | | | | | (degenerativ | [place], [place] | [place] | | | | | e joint | [address] | [address] | | | | | disease) of | | Phone: | | | | | knee Knee | | [phone] | | | | | pain Major | | Fax: | | | | | depressive | | [phone] | | | | | disorder, | [...] 06/21/ | Office | [facility] | Lukasz Charles, | Major Depressive | | 2008 | Visit | [address] | PhD [address] | Disorder, Recurrent | | | | [facility] | [place], [place] | Episode, Mild (HCC); | | | | and Healing, | [address] | LBP (Low Back | | | | | [phone] | Pain); Migraine | | | | Floor [place], [place] | | Headache | | | | [address] | | | | | | [phone] | | | +--------+---------+ + + + [...] migraine specialist this week. She reported that sh e has done some sewing and she found [...] benefit as she becomes more active. Diagnosis: [place] I: 1. (296.31) Major depressive disorder, recurrent, mild. 2. (309.24) Adjustment disorder with anxiety. 3. (307.89) Chronic pain disorder associated with both psychological factors and a gene ral medical condition. [place] II: Deferred [place] III: abdominal pain, migraine headache, low back pain. [place] IV: low finances [place] V: GAF 55-60 Plan: return with next medical follow-up appointment. Check mood, pain, surgical recovery , relaxation, activity, distraction, eating. Ask about headache specialist, physical therap y. Continue cognitive/behavioral therapy. Total time spent with patient was approximately 45 minutes. LUKASZ CHARLES PHD [facility] [address] [facility], 4th [place] [address] documented in this en counter Miscellaneous Notes Maryse - Edwige, Faculty - 08/31/2008 8:41 AM PDT documented in this encounter Plan of Treatment + + +--------+ + + | Name | Type | Priori | Associated Diagnoses | Order Schedule | | | | ty | | | + + +--------+ + + | [place] PSYCHOTHERPY, | Procedures | Routin | Major Depressive | Ordered: 06/21/2008 | | OFFICE (35-50) | | e | Disorder, Recurrent | [...]
--- OUTSIDE RECORDS SUMMARY | ~2020-02-29 | XMS | Encounter Summary ---
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
--- OUTSIDE RECORDS SUMMARY | ~2020-02-29 | XMS | Encounter Summary ---
Demographics + + + | Address | [address] | | | [place] [address] | + + + | Home Phone [...] Team Providers + +------+ + | Care Gang Supervisor Name | Role | Phone | + +------+ + | Pedrito Gutierrez MD | PCP | | + +------+ + Reason for Visit + +--------+ + | Reason | Onset | Comments | | | Date | | + +--------+ + | Letter From | 06/12/ | | | Specialist | 2009 | | + +--------+ + [...] | | | [facility] | [place], [place] | | | | | [address] | [address] | | | | | [address] | [phone] | | | | | Physician's | | | | | | Pavilion, [facility] floor | | | | | | [place], [place] | | | | | | [address] | | | | | | [phone] | | | +--------+ + + + [...] encounter Miscellaneous Notes Telephone Encounter - Kenisha MeltonANAYA - 06/12/2009 6:29 PM PSTIt is time for Gulshan gamez to re establish care with her PCP more steadily. If she needs a surgical consult, dr. yonatan chau can see her. The insurance does not want to fund her transportation since she is in [facility]. Will see if there is someone she can establish care with as needed. Eduard del castillo discuss with dr. deveney 6:2 9 PM PSTTelephone Encounter - Ami Barton - 06/12/2009 9:53 AM PSTPatient needs a lette r written stating the reasons why she needs to continue her care with Dr. Meeks. Her insuran ce does not cover her here but she would like to continue coming. She would like this letter sent to her home address. You can reach her at [phone] signed by Ami Barton at 06/12/2009 9:53 AM PSTdocumented in this encounter Plan of Treatment Not on filedocumented as of this encounter Visit Diagnoses Not on filedocumented in this encounter"
--- OUTSIDE RECORDS SUMMARY | ~2020-02-29 | XMS | Encounter Summary ---
Demographics + + + | Address | [address] | | | [place] [address] | + + + | Home Phone [...] Providers + +------+ + | Care Pipe Machine Operator Name | Role | Phone [...] + + | 03/28/ | Refill | [facility] | Alanis, | Medication Refill | | 2016 | | MEDICINE [address] | MD Petrona | | | | | [place], | [address] [facility] | | | | | [place] [address] | [place] [address] | | | | | [phone] | [phone] | | | | | | | [...] Telephone Encounter - Nuris Hartman RN - 03/30/2017 2:26 PM PDTAre these the correct i nstructions? documente d in this encounter Plan of Treatment +--------+---------+ + + + | Date | Type | Specialty | Care Team | Description | +--------+---------+ + + + | 05/17/ | Office | Internal Medicine | Alanis, | | | 2019 | Visit | | MD Petrona | | | | | | [address] | | | | | | [place] [address] | | | | | | [phone] | | | | | | | | +--------+---------+ + + + documented as of this encounter Visit Diagnoses Not on filedocumented in this encounter"
--- OUTSIDE RECORDS SUMMARY | ~2020-02-29 | XMS | Encounter Summary ---
Demographics + + + | Address | [address] | | | [place] [address] | + + + | Home Phone [...] + + | Author | [facility] [employer] | | | and [place] | + [...] Providers + +------+ + | Care Clinic Supervisor Name | Role | Phone | + +------+ + | Petrona Thapa | PCP | | | MD | | | + +------+ + Encounter Details +--------+ + + + + | Date | Type | Department | Care Team | Description | +--------+ + + + + | 05/04/ | [facility] | [facility] | Alanis, | Left hip pain | | 2017 | Encounter | [facility] [address] XRAY | MD Petrona | | | | | [address] [place] | [address] [facility] | | | | | [place] | [place] [address] | | | | | [address] | [phone] | | | | | [phone] | | | +--------+ + + + [...] AM PSTL spine x-ray ordered, please prin jacobsen and [facility] Hospital[facility]ronically signed by Petrona Thapa MD at [address] [...] | | | | | [place] [address] | | | | | | [phone] | | | | | | | [...]
--- OUTSIDE RECORDS SUMMARY | ~2020-02-29 | XMS | Encounter Summary ---
Demographics + + + | Address | [address] | | | [place] [address] | + + + | Home Phone [...] Team Providers + +------+ + | Care Financial Project Manager Name | Role | Phone [...] of this encounter Progress Notes Interface, Labor Trainer In - 11/19/2005 3:09 AM [facility] [address], [place] [address] or May 09, 2003 Pedrito Gutierrez M.D. [address] [place] [address] RE: BELINDA MEEHAN MR #: [id number] Dear Dr. Gutierrez: I had the pleasure [...] this testing done through your clinic in [place]. I will plan to see her again [...] regarding her condition. Sincerely, Issac Meeks M.D. food prep worker, Division of Endocrinology, Diabetes, and Clinical Electrotyper Apprentice, Metabolic Disorders Clinic MONIQUE / SHARIF [id number] / [id number] / [id number] / Tdocumented in this encounter Plan of Treatment Not on filedocumented as of this encounter Visit Diagnoses Not on filedocumented in this encounter"
--- OUTSIDE RECORDS SUMMARY | ~2020-02-29 | XMS | Encounter Summary ---
Demographics + + + | Address | [address] | | | [place] [address] | + + + | Home Phone [...] Providers + +------+ + | Care Candy Forming Machine Operator Name | Role | Phone | + +------+ + | Petrona Thapa | PCP | | | MD | | | + +------+ + Encounter Details +--------+ + + + + | Date | Type | Department | Care Team | Description | +--------+ + + + + | 03/02/ | [facility] | [facility] | Alanis, | Neck pain on right | | 2018 | Encounter | [facility] | MD Petrona | side | | | | [address] [place] | [address] [facility] | | | | | [place], [place] | [place] [address] | | | | | [address] | [phone] | | | | | [phone] | | | +--------+ + + + [...] Petrona | | | | | | [address] [place] [address] [place] | | | | | | [place] [address] | | | | | | [phone] | | | | | | | [...]
--- OUTSIDE RECORDS SUMMARY | ~2020-02-29 | XMS | Encounter Summary ---
Demographics + + + | Address | [address] | | | [place] [address] | + + + | Home Phone [...] Providers + +------+ + | Care Skin Carver Name | Role | Phone | + [...] + + | 03/15/ | Telephone | [facility] | Alanis, | Appointment | | 2017 | | MEDICINE [address] | MD Petrona | | | | | [place], | [address] [facility] | | | | | [place] [address] | [place] [address] | | | | | [phone] | [phone] | | | | | | | [...] she is still in the hospital in [place]. Patient stated s he has been in the hospital for over a week now after her emergency bowel surgery. Patient stated she is at [facility], room #115, and would like the nurse [...] | | | | | [place] [address] | | | | | | [phone] | | | | | | | | +--------+---------+ + + + documented as of this encounter Visit Diagnoses Not on filedocumented in this encounter"
--- OUTSIDE RECORDS SUMMARY | ~2020-02-29 | XMS | Encounter Summary ---
Demographics + + + | Address | [address] | | | [place] [address] | + + + | Home Phone [...] Providers + +------+ + | Care Workforce Planner Name | Role | Phone | [...] as of this encounter Progress Notes Interface, Heat Treating Bluer In - 01/12/2005 10:09 AM PDT [id number] GEOVANNI [facility] Date: 12/12/2004 Clinic: Endocrinology PHONE CONTACT NOTE The patient called me today after having surgery last week here at [facility]. Her concern was the development of [...] cushion which I have ordered today through [employer], phone #[phone] and fax #[phone]. Today, the patient will monitor the decubiti closely and will be in touch with myself and her other physician depending on the progress. She also still has [address], which may be removed in one or two weeks when she returns to the Surgery Clinic at [facility]. Beto Meeks M.D. PD / HS [id number] / [id number] / [id number] / [id number] cc: Chris Padgett M.D. documented i n this encounter Plan of Treatment Not on filedocumented as of this encounter Visit Diagnoses Not on filedocumented in this encounter"
--- OUTSIDE RECORDS SUMMARY | ~2020-02-29 | XMS | Encounter Summary ---
Demographics + + + | Address | [address] | | | [place] [address] | + + + | Home Phone [...] Providers + +------+ + | Care Wood Router Name | Role | Phone | + [...] Specialty | Podiatry | Diagnoses | | Strickland, | | | Services | | Closed | Emmy-Cristin | Bandar Doherty DPM | | | Required | | nondisplaced | i, | [address] | | | | | fracture of | Sulaiman[address]Gily | [address] | | | | | proximal | , MD [address] | [address] | | | | | phalanx of | [address] | [place], [place] | | | | | left great | [place], | [address] | | | | | toe, initial | [place] | Phone: | | | | | encounter | [address] | [phone] | | | | | | Phone: | Fax: | | | | | | [phone] | [phone] | | | | | | Fax: | | | | | | | [phone] | | +--------+ + + + + + Encounter Details +--------+ + + + + | Date | Type | Department | Care Team | Description | +--------+ + + + + | 08/26/ | Orders Only | [facility] [place] [facility] | Emmy-Kamlesh, | Closed nondisplaced | | 2018 | | MEDICINE [address] | MD Petrona | fracture of proximal | | | | [address] [place], | [address] [place] | phalanx of left | | | | [place] [address] | [place] [address] | great toe, initial | | | | [phone] | [phone] | encounter (Primary | | | | [...] | | | | | [place] [address] | | | | | | [phone] | | | | | | | [...]
--- OUTSIDE RECORDS SUMMARY | ~2020-02-29 | XMS | Encounter Summary ---
Demographics + + + | Address | [address] | | | [place] [address] | + + + | Home Phone [...] Team Providers + +------+ + | Care Net Ui Developer Name | Role | Phone | [...] [facility] | | | | | [place] [address] | [place] [address] | | | | | [phone] | [phone] | | | | | | | [...] on: 04/08/2017 08:44 Modules accepted: Orders ddrobertou m Note - Yue Mitchell Assurance Engineer - 04/03/2017 3:04 PM PDT Addended by: YUE FELDMAN on: 04/03/2017 15:04 Modules accepted: Orders Telephone Encounter - Yue Mitchell Medical Assistant - 04/03/2017 2:57 PM PDTSpoke to patient and she is not doing better, She continues to have pain in her left hip and woeleanor d like to have an x-ray order sent to [facility] in [place]. Order cued up.Electronica lly signed by Destiney Rapp at 04/03/2017 2:58 PM PDTTelephone Enco unter - Alanis, MD John - 04/01/2017 9:14 AM PDTTook me a [...] Zpack has cleared it up [facility] in [place] is Pharmacy Had fall 4 months ago and used her life alert button but no one came. She had a big bruise at the time and continues to have pain in left hip Tender to touch and can't even lay on that side with out increased discomfort. Is requesting an x[facility] to [facility] in [place] Please to advise elephone Encounter - Taun Snider - 03/27/2017 2:22 PM PDTContact/Caller: Belinda Contact Number: [phone] Provider/Nurse: Emmy Reason for Call: Pt calling in stated they believe they are getting an infection on left ea r lobe. Wondering if they could get prescription for that. Pt also calling in would like an x-ray to be ordered for left hip over in [place]. Please advise. Last Appointment: 02/23/17 Next Appointment: [...] [place] | | | | | | [place] [address] | | | | | | [phone] | | | | | | | [...]
--- OUTSIDE RECORDS SUMMARY | ~2020-02-29 | XMS | Encounter Summary ---
Demographics + + + | Address | [address] | | | [place] [address] | + + + | Home Phone [...] Team Providers + +------+ + | Care Spool Tender Name | Role | Phone | + +------+ + | Pedrito Gutierrez MD | PCP | | + +------+ + Reason for Visit + +--------+ + | Reason | Onset | Comments | | | Date | | + +--------+ + | Swelling | 04/09/ | INTESTINES | | | 2005 | | + +--------+ + Encounter Details +--------+ + + + + | Date | Type | Department | Care Team | Description | +--------+ + + + + | 04/08/ | Telephone | [facility] Division of | Carlos Arreola, | Swelling | | 2005 | | Gastroenterology/Hep | [address] | ([facility]) | | | | atology [address] | [address]em [address] | | | | | [address] | [place] [address] | | | | | Mailcode: PV310 | [phone] | | | | | [facility] | | | | | | [address] | | | | | | [place], [place] | | | | | | [address] | | | | | | [phone] | | | +--------+ + + + [...] this encounter Miscellaneous Notes Telephone Encounter - Jerman Rosario - 04/13/2006 4:16 PM PSTPT INFORMED, LEFT VMSG.Electro nically signed by Jerman Rosario at 04/13/2006 4:16 PM PSTTelephone Encounter - Carlos Arreola - 04/13/2006 3:31 PM PSTpatient should inquire with PCP as to IV iron infusion, also.E lectronically signed by Carlos Arreola at 04/13/2006 3:31 PM PSTTelephone Encounter - Carlos Reyna - 04/13/2006 3:29 PM PSTspoke to patient today asked her to have xray sent to my office (still not sure what she means by intestinal swell ing after talking to her). she has not heard about pain center referral yet. capsule endo scheduled 05/12 (needs special equipment to deliver capsule to efferent limb o f letitia-en-y bypass) elep martell Encounter - Jerman Rosario - 04/13/2006 8:05 AM PSTCall Documentation >> JENNIFER CUEVAS [facility] Apr 09, 2006 4:32 PM Status: Signed She needs to know if anything has been sent to her PCP. She needs to know where to go from here. She will be home by 4 if you can give her a call. elephone Encounter - Jerman Curtis - 04/10/2006 3:17 PM PDTRCVD MSG [phone] 2:48 PM 04/10/06. PT CALLED STATING SHE RCVD MSG YESTERDAY AND WOULD LIKE TO SPEAK WITH THAT PT. elephone Encounter - Jerman Rosario - 04/09/2006 1:58 PM PD TPT INFORMED, LEFT VMSG. ele phone Encounter - Carlos Arreola - 04/09/2006 1:35 PM PDTI don't understand her question , as I never mentioned intestinal swelling. Perhaps one of her other providers suggested thi s. Taking aspirin can cause erosions and/or ulcers or general inflammation in the intestine, a nd I recommended that she discuss with her PCP stopping aspirin for one month to see if it c hanges her pain. elephon e Encounter - Jerman Rosario - 04/08/2006 1:06 PM PDTI CALLED BACK TO GET CLARITY ON QUESTIO N. SHE IS ASKING WHAT WOULD CAUSE THE INTESTINE TO SWELL, STATES SHE WAS TOLD THERE WAS SWE LLING IN THE INTESTINE. elep martell Encounter - 04/08/2006 1:03 PM PDT Staff Message copied by JERMAN ROSARIO on 04/08/2006 at 1:03 PM ------ Message from: JERMAN ROSARIO Created: 04/08/2006 at 11:15 AM Regarding: REBECA PT Contact: [facility] [phone] 9:09 AM 04/08/06. PT CALLED STATING SHE FORGOT TO ASK ABOUT SOME SWE LLING IN THE INTESTINES, WANTS A CALL BACK WITH AN ANSWER. documented in this encoun ter Plan of Treatment Not on filedocumented as of this encounter Visit Diagnoses Not on filedocumented in this encounter"
--- OUTSIDE RECORDS SUMMARY | ~2020-02-29 | XMS | Encounter Summary ---
Demographics + + + | Address | [address] | | | [place] [address] | + + + | Home Phone [...] Team Providers + +------+ + | Care Surplus Property Disposal Agent Name | Role | Phone | [...] | | | Bethanie Mailcode: CH4S | [facility] | | | | | [facility] | [place], [place] | | | | | and Healing, | [address] | | | | | [facility] | [phone] | | | | | Floor [place], [place] | | | | | | [address] | | | | | | [phone] | | | +--------+ + + + [...] Pharmacy: Pharmacy Preferences: [address] [place] [address] 9AM-9PM THU-THU / 9AM-7PM SAT / 10AM-6PM SUN documented in this encounter Plan of Treatment Not on filedocumented as of this encounter Visit Diagnoses Not on filedocumented in this encounter"
--- OUTSIDE RECORDS SUMMARY | ~2020-02-29 | XMS | Encounter Summary ---
Demographics + + + | Address | [address] | | | [place] [address] | + + + | Home Phone [...] Team Providers + +------+ + | Care Ibm Websphere Commerce Developer Name | Role | Phone | [...] + | 06/30/ | Refill | [facility] [place] [facility] | Alanis, | Medication Refill | | 2017 | | [facility] [address] | MD Petrona | | | | | [place], | [address] [place] | | | | | [place] [address] | [place] [address] | | | | | [phone] | [phone] | | | | | | | [...] | | | | | [place] [address] | | | | | | [phone] | | | | | | | | +--------+---------+ + + + documented as of this encounter Visit Diagnoses + + | Diagnosis | + + | Bronchitis - Primary Bronchitis, not specified as acute or chronic | + + documented in this encounter"
--- OUTSIDE RECORDS SUMMARY | ~2020-02-29 | XMS | Encounter Summary ---
Demographics + + + | Address | [address] | | | [place] [address] | + + + | Home Phone [...] Team Providers + +------+ + | Care Agronomy Internship Name | Role | Phone | + +------+ + | Petrona Thapa | PCP | | | MD | | | + +------+ + Reason for Visit + +--------+ + | Reason | Onset | Comments | | | Date | | + +--------+ + | Medication Refill | 02/12/ | | | | 2020 | | + +--------+ + Encounter Details +--------+--------+ + + + | Date | Type | Department | Care Team | Description | +--------+--------+ + + + | 02/12/ | Refill | [facility] | Alanis, | Medication Refill | | 2019 | | MEDICINE [address] | MD Petrona | | | | | [place], | [address] [place] | | | | | [place] [address] | [place] [address] | | | | | [phone] | [phone] | | | | | | | [...] | | | | | [place] [address] | | | | | | [phone] | | | | | | | | +--------+---------+ + + + documented as of this encounter Visit Diagnoses Not on filedocumented in this encounter"
--- OUTSIDE RECORDS SUMMARY | ~2020-02-29 | XMS | Encounter Summary ---
Demographics + + + | Address | [address] | | | [place] [address] | + + + | Home Phone [...] Team Providers + +------+ + | Care Mathematics Teacher Name | Role | Phone | + +------+ + | Pedrito Gutierrez MD | PCP | | + +------+ + Reason for Visit + +--------+ + | Reason | Onset | Comments | | | Date | | + +--------+ + | Lab findings, | 03/14/ | | | teaching, guidance, | 2008 [...] [address] | | | | | | [place], [place] | | | | | | [address] | | | | | | [phone] | | | +--------+ + + + [...] this encounter Miscellaneous Notes Telephone Encounter - Donna Clancy PA - 03/16/2009 9:25 AM PDTCalled pt to let her know results. Pt has no further questions. elephone Encounter - Lisa Wilder - 03/14/2009 4:24 PM PDTPt info rmed. Pathology results faxed at [phone] (Dr. Vasquez); ph # [phone] and at (Dr. Gutierrez); ph #[phone] signed by Lisa Wilder at 03/14/2009 4:24 PM PDTTelephone Encounter - Donna Clancy PA - 03/14/2009 3:53 PM PDTPlease advise p ann-marie I will try to call her on Thursday. Will be in the OR tomorrow. Please get the fax numbers for both doctors she would like results sent. elephone Encounter - Rut Lei - 03/14/2009 3: 45 PM PDTName of caller: Belinda Reason for call: Belinda would like to have her pathology results. She would also like for Dr. Pedrito Gutierrez and Dr. Helio Vasquez to get the pathology results Recent Surgery: yes/no: yes Date of surgery: 02/22/2009 Procedure: 1. Curettage and bone grafting of the left scapular lesion. 2. Open biopsy, left scapular lesion. Provider: Romain Does patient have confidential voicemail?: yes/no: yes documented in t his encounter Plan of Treatment Not on filedocumented as of this encounter Visit Diagnoses Not on filedocumented in this encounter"
--- OUTSIDE RECORDS SUMMARY | ~2020-02-29 | XMS | Encounter Summary ---
Demographics + + + | Address | [address] | | | [place] [address] | + + + | Home Phone [...] Team Providers + +------+ + | Care Gym Manager Name | Role | Phone | + +------+ + PCP | Unavailable | + +------+ + Encounter Details +--------+ + + + + | Date | Type | Department | Care Team | Description | +--------+ + + + + | 07/25/ | Procedure - | | Record, Operation | Operative Report | | 2006 | | | | | | | Transcribed | | | | +--------+ + + [...] as of this encounter Procedure Notes Interface, Centerless Grinder Operator In - 08/06/2005 2:06 AM PST [id number] GEOVANNI SKELTON J Date: 07/25/2005 Attending Surgeon: Chris Padgett M.D. Cook Dinner(s): Bandar Langley M.D. Preoperative Diagnosis(es): Abdominal pain. Postoperative Diagnosis(es): Multiple intraabdominal adhesions. Procedures Performed: Exploratory laparoscopy with lysis of adhesions. Anesthesia: General endotracheal. Estimated Blood Loss: Minimal. Complications: None. Findings: After inspection of the abdomen, the Zoe-limb appeared to be intact as was the gastrojejunostomy as was the jejunojejunostomy. There was some dilation of small bowel more distally, toward the end of the ileum near the ileocecal valve. There were multiple adhesions down the pelvis that were taken down, and although there was no clear internal hernia identified, we suspected these adhesions to have caused the intermittent abdominal pain and symptoms. Specimens: Indications: Ms. Meehan is a very pleasant 45-year-old woman who underwent a laparoscopic gastric bypass approximately 2 years ago. She has lost significant weight since then and has undergone abdominoplasty. It is noted that she was doing rather well until after abdominoplasty in which case she developed intermittent symptoms of abdominal pain after eating that would be relieved after a few hours. This happened on a relatively frequent and regular basis. The suspicion after evaluation was that this may be an intermittent bowel obstruction-type picture. All of her imaging studies preoperatively were negative, and this was the last resort. Procedure: Ms. Meehan was identified in the holding area, taken to the operating room, and placed on the operating table in a supine position. General endotracheal anesthesia was then administered without any complication. A Baker catheter and SCDs were placed. She was then prepped and draped in a standard surgical fashion. We initially began by injecting local anesthetic approximately 12 cm below the level of the xiphoid process. A 1-cm transverse incision was then made. A Veress needle was inserted into the abdomen on our first attempt. Pneumoperitoneum was established to a pressure of 15 mmHg with CO2 gas. Once we had sufficient pneumoperitoneum, we then inserted the 11-mm trocar through the site. This was followed by a 30-degree telescope, and the area was inspected for any evidence of bowel injury or bleeding, and there was none apparent. Subsequently, a left subcostal 12-mm port was inserted. A right subcostal 5-mm port, a right lower quadrant 5-mm port, and a left lower quadrant 5-mm port were all inserted into the abdomen under direct visualization. The greater omentum was stuck to the anterior abdominal wall, and this was taken down using sharp dissection as well as the Harmonic scalpel. Once we had the omentum down, we were able to look down into the pelvis where we did see some adhesions from the small bowel, interloop adhesions as well as to the cecum. These were all taken down sharply, straightening out the bowel. Once we had relieved it from the pelvis, we then traced the bowel starting at the gastrojejunal anastomosis and traced it down all the way to the jejunojejunal anastomosis and these all appeared to be intact. The bowel was of excellent quality in appearance. We continued on tracing it down the alimentary limb, all the way to the ileocecal valve. We did release some adhesions down the ileocecal region, and although there was no clear internal hernia identified, we suspected that this was the area that was causing the problem. Once this was completed, we removed all ports under direct visualization and closed port sites using 4-0 Monocryl suture in a subcutaneous subcuticular fashion. Mastisol, Steri-Strips, and Band-Aids were applied for dressing. The patient was then extubated in the operating room and transferred to the Postanesthesia Care Unit in good and stable condition. There were no complications from the surgery. All sponge and needle counts were correct. Dr. Chris Padgett was present and scrubbed throughout the entire case. Bandar Langley M.D. Chris Padgett M.D. / [id number] / [id number] / [id number] / [id number] Electronically signed by Chris Padgett 08-05-2005 12:36:41 PM documented i n this encounter Plan of Treatment Not on filedocumented as of this encounter Procedures + +--------+ + + + | Procedure Name | Priori | Date/Time | Associated Diagnosis | Comments | | | ty | | | | + +--------+ + + + | OPERATION RECORD | | 07/25/2005 | | Results for this | | | | | | procedure are in the | | | | | | results section. | + +--------+ + + + documented in this encounter Results OPERATION RECORD (07/25/2005) + + | Transcriptions | + + | Interface, Centerless Grinder Operator In - 08/06/2005 2:06 AM PST | | [id number] | | [id number] GEOVANNI Barnes | | | | Date: 07/25/2005 | | | | Attending Surgeon: Chris Padgett M.D. | | | | Cook Dinner(s): Bandar Langley M.D. | | | | | | Preoperative Diagnosis(es): | | Abdominal pain. | | | | Postoperative Diagnosis(es): | | Multiple intraabdominal adhesions. | | | | Procedures Performed: | | Exploratory laparoscopy with lysis of adhesions. | | | | Anesthesia: | | General endotracheal. | | | | Estimated Blood Loss: | | Minimal. | | | | Complications: | | None. | | | | Findings: | | After inspection of the abdomen, the Zoe-limb appeared to be intact as was | | the gastrojejunostomy as was the jejunojejunostomy. There was some | | dilation of small bowel more distally, toward the end of the ileum near the | | ileocecal valve. There were multiple adhesions down the pelvis that were | | taken down, and although there was no clear internal hernia identified, we | | suspected these adhesions to have caused the intermittent abdominal pain | | and symptoms. | | | | Specimens: | | | | Indications: | | Ms. Meehan is a very pleasant 45-year-old woman who underwent a | | laparoscopic gastric bypass approximately 2 years ago. She has lost | | significant weight since then and has undergone abdominoplasty. It is | | noted that she was doing rather well until after abdominoplasty in which | | case she developed intermittent symptoms of abdominal pain after eating | | that would be relieved after a few hours. This happened on a relatively | | frequent and regular basis. The suspicion after evaluation was that this | | may be an intermittent bowel obstruction-type picture. All of her imaging | | studies preoperatively were negative, and this was the last resort. | | | | Procedure: | | Ms. Meehan was identified in the holding area, taken to the operating | | room, and placed on the operating table in a supine position. General | | endotracheal anesthesia was then administered without any complication. A | | Baker catheter and SCDs were placed. She was then prepped and draped in a | | standard surgical fashion. | | | | We initially began by injecting local anesthetic approximately 12 cm below | | the level of the xiphoid process. A 1-cm transverse incision was then | | made. A Veress needle was inserted into the abdomen on our first attempt. | | Pneumoperitoneum was established to a pressure of 15 mmHg with CO2 gas. | | Once we had sufficient pneumoperitoneum, we then inserted the 11-mm trocar | | through the site. This was followed by a 30-degree telescope, and the area | | was inspected for any evidence of bowel injury or bleeding, and there was | | none apparent. Subsequently, a left subcostal 12-mm port was inserted. A | | right subcostal 5-mm port, a right lower quadrant 5-mm port, and a left | | lower quadrant 5-mm port were all inserted into the abdomen under direct | | visualization. The greater omentum was stuck to the anterior abdominal | | wall, and this was taken down using sharp dissection as well as the | | Harmonic scalpel. Once we had the omentum down, we were able to look down | | into the pelvis where we did see some adhesions from the small bowel, | | interloop adhesions as well as to the cecum. These were all taken down | | sharply, straightening out the bowel. Once we had relieved it from the | | pelvis, we then traced the bowel starting at the gastrojejunal anastomosis | | and traced it down all the way to the jejunojejunal anastomosis and these | | all appeared to be intact. The bowel was of excellent quality in | | appearance. We continued on tracing it down the alimentary limb, all the | | way to the ileocecal valve. We did release some adhesions down the | | ileocecal region, and although there was no clear internal hernia | | identified, we suspected that this was the area that was causing the | | problem. Once this was completed, we removed all ports under direct | | visualization and closed port sites using 4-0 Monocryl suture in a | | subcutaneous subcuticular fashion. Mastisol, Steri-Strips, and Band-Aids | | were applied for dressing. The patient was then extubated in the operating | | room and transferred to the Postanesthesia Care Unit in good and stable | | condition. There were no complications from the surgery. All sponge and | | needle counts were correct. | | | | Dr. Chris Padgett was present and scrubbed throughout the entire case. | | | | | | | | | | Bandar Langley M.D. | | | | | | | | Chris Padgett M.D. | | | | DT / HS | | [id number] / [id number] / [id number] / [id number] | | | | | | | | | | | | Electronically signed by Chris Padgett 08-05-2005 12:36:41 PM | + + documented in this encounter Visit Diagnoses Not on filedocumented in this encounter"
--- OUTSIDE RECORDS SUMMARY | ~2020-02-29 | XMS | Encounter Summary ---
Demographics + + + | Address | [address] | | | [place] [address] | + + + | Home Phone [...] Team Providers + +------+ + | Care Blackjack Supervisor Name | Role | Phone | [...] Rehabilitatio | bilateral | i, | [address] | | | | n | low back | Sulaiman-Gily | [place], | | | | | pain with | [address] | [place] [address] | | | | | left-sided | [address] | Phone: | | | | | sciatica | [place], | [phone] | | | | | Muscle spasm | [place] | Fax: | | | | | | [address] | [phone] | | | | | Fibromyalgia | Phone: | | | | | | | [phone] | | | | | | | Fax: | | | | | | | [phone] | | +--------+ + + + + + Reason for Visit + + + | Reason | Comments | + + + | Follow-up | 2 month | + + + Encounter Details +--------+---------+ + + + | Date | Type | Department | Care Team | Description | +--------+---------+ + + + | 05/04/ | Office | [facility] | Alanis, | Chronic bilateral | | 2017 | Visit | MEDICINE [address] | MD John | low back pain with | | | | [address] [place] [facility], | [address] [facility] | left-sided sciatica | | | | [place] [address] | [place] [address] | (Primary Dx); Muscle | | | | [phone] | [phone] | spasm; | | | | | [...] also help with symptoms. Date Last Reviewed: 07/29/[id number] [employer]. [address] [place] [address], [place] [address]. All righ ts reserved. This information is [...] Coccydynia COPD (chronic obstructive pulmonary disease) ([facility]) Depression Diarrhea Dumping syndrome Fatigue fracture of vertebra Fibromyalgia Glaucoma Hyperparathyroidism ([facility]) Hypothyroidism IBS (irritable bowel syndrome) Idiopathic scoliosis Leg edema Lumbar postlaminectomy syndrome Lumbar radiculopathy primarily right 01/04/2015 Meniere syndrome Migraines Muscle cramping Muscle spasm Myalgia Nonalcoholic hepatosteatosis Obesity Opiate dependence ([facility]) Orthostatic hypotension OLIVER (obstructive sleep apnea) Osteoarthritis, generalized Osteopenia Osteoporosis Peripheral neuropathy ([facility]) Rheumatoid arthritis ([facility]) Right arm pain 01/04/2015 RLS (restless legs syndrome) S/P lumbar fusion 01/04/2015 Scoliosis Spondylosis with myelopathy, lumbar region Stroke ([facility]) Syncope Tremor Type II or [...] (See Comments) Confused and questionable for seizures Ngcvesprkn-Cyvu-Atmipusf Cephalexin Hives Ketorolac Hives Morphine Swelling Tramadol Hcl Nausea Only Diumfkcqjr-Naib-Mbuluabw Hives and Rash Ciprofloxacin Hives and Rash [...] pain with left-sided sciatica - * [facility] Phys[facility]ry - AMB Referral; Future - CBC with Differential; Future - Comprehensive Metabolic Panel; Future - TSH; Future - CK Total; Future - C-Reactive Protein; Future 2. Muscle spasm - * [facility] Physiatry - AMB Referral; Future - CBC with Differential; Future - Comprehensive Metabolic Panel; Future - TSH; Future - CK Total; Future - C-Reactive Protein; Future - methocarbamol (ROBAXIN) 750 mg tablet; take 1 tablet by mouth twice a day Dispense: 60 t ablet; Refill: 3 3. Fibromyalgia - * [facility] Physiatry - AMB Referral; Future - CBC with Differential; Future - Comprehensive Metabolic Panel; Future - TSH; Future - CK Total; Future - C-Reactive Protein; Future 4. Left hip pain - XR Hip Left 2-3 Views; Future FOLLOW-UP No Follow-up on file. Note: Parts of this documentwere created using [employer] speech recognition software. As a r esult, [...] | | | | | [place] [address] | | | | | | [phone] | | | | | | | [...] + | [address] | [address] | [place] | [phone] | | [facility] | | [address] | | | - LABORATORY | | [...] [address] | [place] | [phone] | | [facility] | | [address] | | | - LABORATORY | | [...] + | [facility] | [address] | [place] | [phone] | | [facility] | | [address] | | | - LABORATORY | | [...] mL/min/1.73m2 | [facility] | | | [place] | RATE,ESTIMATED | | MEDICAL | | | | mL/min/1.52g2Htui than | | CENTER - | | [...] [address] | [place] | [phone] | | [facility] | | [address] | | | - LABORATORY | | [...] | Cells | | M/uL | [facility] | | | | [...] [address] | [place] | [phone] | | [facility] | | [address] | | | - LABORATORY | | [...]
--- OUTSIDE RECORDS SUMMARY | ~2020-02-29 | XMS | Encounter Summary ---
Demographics + + + | Address | [address] | | | [place] [address] | + + + | Home Phone [...] Team Providers + +------+ + | Care Climbing Guide Name | Role | Phone | + +------+ + | Petrona Thapa | PCP | | | MD | | | + +------+ + Reason for Visit + +--------+ + | Reason | Onset | Comments | | | Date | | + +--------+ + | ER Follow-up | 06/26/ | | | | 2018 | | + +--------+ + Encounter Details +--------+ + + + + | Date | Type | Department | Care Team | Description | +--------+ + + + + | 06/26/ | Telephone | [facility] | Alanis, | ER Follow-up | | 2017 | | MEDICINE [address] | MD Petrona | | | | | [place], | [address] [facility] [place] | | | | | [place] [address] | [place] [address] | | | | | [phone] | [phone] | | | | | | | [...] Encounter - Maggie Montoya LPN - 06/30/2017 5:05 PM PSTPatient notified will javon colin appointment for evaluation for need for MRI. Patient understands and will call to schedule sooner appointment ele phone Encounter - Petrona Thapa MD - 06/26/2017 3:04 PM PSTI am not sure wha t MRI is she asking for: neck, back, head? Also, w/o chart notes, it is unlikely insurance will cover an MRI. If ER didn't deem it nec essary, it would be difficult for us to justify it on a weekend, w/o any chart notes to supp ort the urgent need for it. Electronically signed by Petrona Thapa MD at 06/26 3:06 PM PSTTelephone Encounter - Juliane Fernandez - 06/26/2017 8:06 AM PSTContact/Gerardo blankenship: Belinda Contact Number: [phone] Provider/Nurse: Emmy Reason for Call: Emergency room follow up Last Appointment: 06/01/17 Next Appointment: 05/27/18 Shon called and stated was seen at the emergency room 06/25/17 and was given IV with medica tion zofran 8 ml. Patient states she still continues having a headache that goes from her he ad to her spine. Patient states she needs MRI, and would like a call back. documented in this encoun ter Plan of [...] | | | | | [place] [address] | | | | | | [phone] | | | | | | | | +--------+---------+ + + + documented as of this encounter Visit Diagnoses Not on filedocumented in this encounter"
--- OUTSIDE RECORDS SUMMARY | ~2020-02-29 | XMS | Encounter Summary ---
Demographics + + + | Address | [address] | | | [place] [address] | + + + | Home Phone [...] Providers + +------+ + | Care Sand Blaster Name | Role | Phone | + [...] + + | 06/29/ | Telephone | [facility] | Alanis, | Illness | | 2017 | | MEDICINE [address] | MD Petrona | | | | | [place], | [address] [facility] | | | | | [place] [address] | [place] [address] | | | | | [phone] | [phone] | | | | | | | [...] office visit. Please advise Patient [facility] [place] Patient can be reached at [phone] signed by Shalonda Mcdermott at 06/29/2017 4:31 PM PSTdocumented in this encounter Plan of Treatment +--------+---------+ + + + | Date | Type | Specialty | Care Team | Description | +--------+---------+ + + + | 05/17/ | Office | Internal Medicine | Alanis, | | | 2019 | Visit | | MD Petrona | | | | | | [facility] [address] | | | | | | [place] [address] | | | | | | [phone] | | | | | | | | +--------+---------+ + + + documented as of this encounter Visit Diagnoses Not on filedocumented in this encounter"
--- OUTSIDE RECORDS SUMMARY | ~2020-02-29 | XMS | Encounter Summary ---
Demographics + + + | Address | [address] | | | [place] [address] | + + + | Home Phone [...] Providers + +------+ + | Care Cloth Cutting Inspector Name | Role | Phone | [...] as of this encounter Progress Notes Interface, Block Hacker In - 01/11/2005 7:39 PM PDT Referred From and Faxed To: General Surgery Referred To: [facility] Consulting Physician: Svetlana Maki R.D., L.Ada Consultation Date: 09/14/2003 Reason for Requested Consultation: [...] when approved by Joanna 4. Follow-up with R.D. as needed post surgery, recommend between 3-6 months time. She is coming from [place] so this can be scheduled on the same day of her physician visit. General surgery can schedule this. 5. RNajma's business card with contact information for questions. Svetlana Maki R.D., L.D. SR/y39 P [phone] cc: documente d in this encounter Plan of Treatment Not on filedocumented as of this encounter Visit Diagnoses Not on filedocumented in this encounter"
--- OUTSIDE RECORDS SUMMARY | ~2020-02-29 | XMS | Encounter Summary ---
Demographics + + + | Address | [address] | | | [place] [address] | + + + | Home Phone [...] Team Providers + +------+ + | Care Paleontological Helper Name | Role | Phone | [...] | Alisha, | | | Services | ambery | Nausea | Rene | MD Luther | | | Required | | | i, | [address] | | | | | | [place] | TORI | | | | | MD [address] | [place] [address] | | | | | | [address] | Phone: | | | | | | [place], | [phone] | | | | | | [place] | Fax: | | | | | | [address] | [phone] | | | | | | Phone: | | | | | | | [phone] | | | | | | | Fax: | | | | | | | [phone] | | +--------+ + + + + + Reason for Visit + +--------+ + | Reason | Onset | Comments | | | Date | | + +--------+ + | Medication Question | 08/13/ | | | | 2018 | | + +--------+ + Encounter Details +--------+ + + + + | Date | Type | Department | Care Team | Description | +--------+ + + + + | 08/13/ | Telephone | [facility] | Alanis, | Medication Question | | 2018 | | [facility] [address] | MD Petrona | | | | | [place], | [address] [place] | | | | | [place] [address] | [place] [address] | | | | | [phone] | [phone] | | | | | | | [...] this encounter Miscellaneous Notes Telephone Encounter - Petrona Thapa MD - 08/17/2018 3:25 PM PSTReferral sen t. elephon e Shlomo - Maggie Montoya LPN - 08/17/2018 2:19 PM PSTPatient notified of comments/re commendations. Please refer to Dr. Briot in GI elephone Encounter - Bob Melgar - 08/17/2018 12:55 PM PS TPatient returned phone call please call [phone]. elephone Encounter - Maggie Montoya LPN - 08/17/2018 9: 34 AM PSTLeft message to call back elephone Encounter - Petrona Thapa MD - 08/16/2018 2:04 PM PSTI think she is in danger of polypharmacy, with this medication and other meds, too. Last time she went to the hospital for bowel obstruction the impression of the inpatient team is that her obstruction was related to overmedication. We can refer her to GI, if agrees, to have her meds reviewed. elephone Encounter - Maggie Montoya LP N - 08/13/2018 1:33 PM PSTCall to [facility] in [place] spoke with pharmacist Alek, states p atstephanie picked up #270 tabs of Ondansetron on 06/27/18. Called and spoke to patient and states that she has been taking 2 tabs Every 6-8 hrs since her surgery. Patient made aware MD out of the office today and will send message to be addressed on Thursday. Patient states she has enough to last through the weekend, I have instructed her to only take one tab every 8 hour s as needed as per MD instructions. Patient understands and accepts. Please adviseElectronic ally signed by Maggie Montoya LPN at 08/13/2018 1:40 PM PSTTelephone Encounter - Bob Murphy - 08/13/2018 12:12 PM PSTPatient called states she messed up on medication Zofra n 4 mg. She's taking 2 a day instead of one? patient is requesting a return phone call. [facility] call [phone]. P STdocumented in this encounter Plan of Treatment +--------+---------+ + + + | Date | Type | Specialty | Care Team | Description | +--------+---------+ + + + | 05/17/ | Office | Internal Medicine | Alanis, | | | 2019 | Visit | | MD [place] | | | | | | [address] [place] | | | | | | [place] [address] | | | | | | [phone] | | | | | | | [...]
--- OUTSIDE RECORDS SUMMARY | ~2020-02-29 | XMS | Encounter Summary ---
Demographics + + + | Address | [address] | | | [place] [address] | + + + | Home Phone [...] Team Providers + +------+ + | Care Clamshell Operator Name | Role | Phone | + +------+ + | Pedrito Gutierrez MD | PCP | | + +------+ + Reason for Visit + +--------+ + | Reason | Onset | Comments | | | Date | | + +--------+ + | Follow-up visit | / | | | | 2007 | | + +--------+ + Consultation (Routine) +--------+--------+ + + + + | Status | Reason | Specialty | Diagnoses / | Referred By | Referred To | | | | | Procedures | Contact | Contact | +--------+--------+ + + + + | Closed | | Pain | Diagnoses | Miracle, | Pratt, | | | | Management | LBP (low | NIHARIKA Jean | Lukasz Rhodes, PhD | | | | | back pain) | [address] | | | | | DJD | [address] | Ave | | | | | (degenerativ | [place], [place] | [place] | | | | | e joint | [address] | [address] | | | | | disease) of | | Phone: | | | | | knee Knee | | [phone] | | | | | pain Major | | Fax: | | | | | depressive | | [phone] | | | | | disorder, | [...] / | Office | [facility] | Lukasz Charles, | Major Depressive | | 2007 | Visit | [address] | PhD [address] | Disorder, Recurrent | | | | [facility] | [place], [place] | Episode, Moderate | | | | and Healing, | [address] | ([facility]); LBP (Low Back | | | | | [phone] | Pain); Fibromyalgia | | | | Floor [place], [place] | | syndrome 729.1; | | | | [address] | | Adjustment Disorder | | | | [phone] | | with Anxiety; | | | [...] She has had ongoing depression but sh e has been doing some creative work (quilting) and some reading. Ms. Meehan has ongoing depression and frustration. She is not suicidal. She is doing jeni ewhat better but needs to remember to use self-management skills during intense pain episode s. Diagnosis: Eddy I: 1. (296.32) Major depressive disorder, recurrent, moderate. 2. (309.24) Adjustment disorder with anxiety. 3. 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 Eddy II: Deferred Eddy III: abdominal pain, migraine headache, low back pain. Eddy IV: low finances Eddy V: GAF 55-60 Plan: return with next medical follow-up appointment. Check mood, knee surgery, relaxatio n, activity, distraction. Continue cognitive/behavioral therapy. Total time spent with patient was approximately 45 minutes. LUKASZ CHARLES PHD [facility] [address] [facility] [address] [place] [address] documented in this encount er Plan of Treatment + + +--------+ + + | Name | Type | Priori | Associated Diagnoses | Order Schedule | | | | ty | | | + + +--------+ + + | SD PSYCHOTHERPY, | Procedures | Routin | Major Depressive | Ordered: 08/13/2007 | | OFFICE (45-50) | | e | Disorder, Recurrent | | | | | | Episode, Moderate | | | | | | ([facility]) LBP (Low Back | | | | [...]
--- OUTSIDE RECORDS SUMMARY | ~2020-02-29 | XMS | Encounter Summary ---
Demographics + + + | Address | [address] | | | [place] [address] | + + + | Home Phone [...] Providers + +------+ + | Care Security Analyst Name | Role | Phone | + +------+ + | Maria Esther Cintron MD | PCP | | + +------+ + Reason for Visit + +--------+ + | Reason | Onset | Comments | | | Date | | + +--------+ + | Refill Request | 12/21/ | levothyroxine | | | 2011 | | + [...] | | | [facility] | [place], [place] | | | | | [address] | [address] | | | | | [address] | [phone] | | | | | [facility] | | | | | | Physician's | | | | | | [facility] | | | | | | [place] [address] | | | | | | [phone] | | | +--------+--------+ + + + [...] Miscellaneous Notes Telephone Encounter - Beto Meeks MD - 12/23/2011 6:10 PM PDTPlease send the levothyroxin e 50 mcg refill to her PCP. TTelephone Encounter - Nuris Lopez - 12/22/2011 4:22 PM PDTLast Office Visit in [facility] was on 07/25/08 at 1:20 pm with Beto Meeks MD. No future appointments scheduled in [facility]. Please advise. documented in this encounter Plan of Treatment Not on filedocumented as of this encounter Visit Diagnoses Not on filedocumented in this encounter"
--- OUTSIDE RECORDS SUMMARY | ~2020-02-29 | XMS | Encounter Summary ---
Demographics + + + | Address | [address] | | | [place] [address] | + + + | Home Phone [...] Providers + +------+ + | Care Sales Development Associate Name | Role | Phone | [...] + + | 10/16/ | Telephone | [facility] | Alanis, | Illness | | 2019 | | MEDICINE [address] | MD [place] | | | | | [place], | [address] [facility] | | | | | [place] [address] | [place] [address] | | | | | [phone] | [phone] | | | | | | | [...] | | | | | | [address] [place] [address] [place] | | | | | | [place] [address] | | | | | | [phone] | | | | | | | | +--------+---------+ + + + documented as of this encounter Visit Diagnoses Not on filedocumented in this encounter
--- OUTSIDE RECORDS SUMMARY | ~2020-02-29 | XMS | Encounter Summary ---
Demographics + + + | Address | [address] | | | [place] [address] | + + + | Home Phone [...] Providers + +------+ + | Care Horse Buyer Name | Role | Phone | + +------+ + | Pedrito Gutierrez MD | PCP | | + +------+ + Reason for Visit + +--------+ + | Reason | Onset | Comments | | | Date | | + +--------+ + | Refill Request | 10/08/ | | | | 2009 | | [...] | | | [facility] | [place], [place] | | | | | [address] | [address] | | | | | [address] | [phone] | | | | | [facility] | | | | | | Physician's | | | | | | [facility] [place], | | | | | | [place] [address] | | | | | | [phone] | | | +--------+--------+ + + + [...] this encounter Miscellaneous Notes Telephone Encounter - Juana Doshi - 10/08/2009 2:34 PM PDTLast Office Visit in [facility] was on 07/25/08 at 1:20 pm with Beto Meeks MD. Next Appointment in [facility] is on 01/29/10 at 4:00 pm with Beto Meeks MD. documented in this encounte r Plan of Treatment Not on filedocumented as of this encounter Visit Diagnoses Not on filedocumented in this encounter"
--- OUTSIDE RECORDS SUMMARY | ~2020-02-29 | XMS | Encounter Summary ---
Demographics + + + | Address | [address] | | | [place] [address] | + + + | Home Phone [...] Providers + +------+ + | Care Training Project Manager Name | Role | Phone [...] [address] | | | | | [place], [place] | [place], [place] | | | | | [address] | [address] | | | | | [phone] | [phone] | | | | | | | [...] [place] DEPARTMENT OF | [address] [facility] | [place] [address] | | | PATHOLOGY | [address] | | | + + + + + | [facility] DEPARTMENT OF | [address] [facility] | [place] [address] | | | PATHOLOGY | [address] [...] + + + + | [facility] | [address] [facility] | [place] [address] | | | PATHOLOGY | [address] | | | + + + + + | [facility] | [address] [facility] | [place] [address] | | | PATHOLOGY | [address] [...] Performed At | + + + | [id number] Estimated GFR > 60 mL/min/1.73 sq m if non- | [facility] | | [id number] Estimated GFR > 60 mL/min/1.73 sq m [...] + + + + | [facility] | [facility] | [place] [address] | | | PATHOLOGY | [address] | | | + + + + + | [facility] | [address] [facility] | [place] [address] | | | PATHOLOGY | [address] | | | + + + + + documented in this encounter Visit Diagnoses Not on filedocumented in this encounter"
--- OUTSIDE RECORDS SUMMARY | ~2020-02-29 | XMS | Encounter Summary ---
Demographics + + + | Address | [address] | | | [place] [address] | + + + | Home Phone [...] Team Providers + +------+ + | Care Plasterer Journeyman Name | Role | Phone | + +------+ + | Petrona Thaap | PCP | | | MD | | | + +------+ + Reason for Visit + +--------+ + | Reason | Onset | Comments | | | Date | | + +--------+ + | Lab Results | 12/10/ | | | | 2017 | | + +--------+ + Encounter Details +--------+ + + + + | Date | Type | Department | Care Team | Description | +--------+ + + + + | 12/10/ | Telephone | [facility] | Alanis, | Lab Results | | 2017 | | MEDICINE [address] | MD [place] | | | | | [place], | [address] [facility] | | | | | [place] [address] | [place] [address] | | | | | [phone] | [phone] | | | | | | | [...] Telephone Encounter - Maggie Montoya LPN - 12/10/2017 3:38 PM PDTPatient notified of mag a nd potassium results. Waiting for Hep C results.Electronically signed by TRUDI Infante 12/10/2017 3:39 PM PDTTelephone Encounter - Juliane Elena - 12/10/2017 1:05 PM PDTPatie nt called stating she was seen today by Dr. Booth, and understands doctor will be leaving on vacation on Thursday. States she would like a wendi back as soon as labs results come in, states she was not called last time and if she needs to be on some kind of medication, she like to know and not have to wait until for Dr. Booth returns, please advise. documented in this encounter Plan of [...] | | | | | [place] [address] | | | | | | [phone] | | | | | | | | +--------+---------+ + + + documented as of this encounter Visit Diagnoses Not on filedocumented in this encounter"
--- OUTSIDE RECORDS SUMMARY | ~2020-02-29 | XMS | Encounter Summary ---
Demographics + + + | Address | [address] | | | [place] [address] | + + + | Home Phone [...] Providers + +------+ + | Care Learning And Development Intern Name | Role | Phone | + +------+ + | John Desai | PCP | | | MD | [...] | Pain Medicine | Diagnoses | | LYNX | | | Services | | Chronic | [facility]ajt | [facility] | | | Required | | bilateral | i, | [address] | | | | | low back | [address] | [address] | | | | | pain without | , MD [address] | [place], | | | | | sciatica | [address] | [place] [address] | | | | | Generalized | [place], | Phone: | | | | | osteoarthrit | [place] | [phone] | | | | | is | [address] | Fax: | | | | | | Phone: | [phone] | | | | | | [phone] | | | | | | | Fax: | | | | | | | [phone] | | +--------+ + + + + + Reason for Visit + +--------+ + | Reason | Onset | Comments | | | Date | | + +--------+ + | Medication Problem | 06/05/ | | | | 2016 | | + +--------+ + Encounter Details +--------+--------+ + + + | Date | Type | Department | Care Team | Description | +--------+--------+ + + + | 06/05/ | Refill | [facility] | Alanis, | Medication Problem | | 2016 | | MEDICINE [address] | MD John | | | | | [place], | [address] [place] | | | | | [place] [address] | [place] [address] | | | | | [phone] | [phone] | | | | | | | [...] Telephone Encounter - Maggie Montoya LPN - 06/19/2017 5:06 PM PSTPatient notifiedScotti mary carmen signed by Maggie Montoya LPN at 06/19/2017 5:06 PM PSTTelephone Encounter - John Giordano MD - 06/17/2017 11:57 AM PSTReferral sent. ddendum Note - Rohan Desai MD - 06/17/2017 11:57 AM PST Addended by: JOHN DESAI on: 06/17/2017 11:5 7 Modules accepted: Orders elepho ne Encounter - Maggie Montoya LPN - 06/17/2017 9:23 AM PSTI spoke to patient yesterday and wanted to give me some good news, she found out that the her previous pain clinic in [facility] [place]. [place], that managed her pain was still operating. She states that she called them and they instructed her to get a referral from her PCP. I instructed her to keep her appt with her c urrent pain clinic until this appointment can be approved and scheduled. She states that she told them she wasn't coming back because they were trying to overdose her instead of findin g out what will help her. She has given me the number and fax number to the pain clinic that she would like to be referred to. . / [phone]. elephone Encounter - John Rapp MD - 06/16/2017 7:05 PM PSTPlease let her know diarrhea is a co mmon reaction to stopping or lowering opiate doses. Sxs usually get better after 1-2 weeks. Imodium OTC prn can help. Electronically signed by John Desai MD at 018 7:06 PM PSTTelephone Encounter - Astrid Grant - 06/16/2017 9:32 AM PSTBrenda called regarding her weakness and this message. She stated she can hardly stand she is so weak. Please advise. [phone] signed by Astrid Grant at 06/16/2017 9:33 AM PSTTelephone Maggie Peguero LPN - 06/09/2017 4:52 PM PSTPatient would like to wait to discuss t his with MD when back in the office next week. Patient ok with waiting until 06/17/17 to discu ss the dairy products causing diarrhea. Patient has had gastric bypass and also taking Immod ium OTC and states it does help some. Does have a follow up appointment with the Pain Clinic on 06/17/17 to follow up on the Belbuca that she has stopped taking. Patient understands and accepts elephone Encoun ter - Shalonda Mcdermott - 06/09/2017 1:18 PM PSTPatient called again today. She is aware dr pino ray is out of the office until 06/17/2017, she is requesting a returned call reg her medic ation issues that she called about on 06/05/17. She would also like to discuss her issues wi th dairy products. She stated it doesn't matter what dairy product it is at all or the small est amount, she gets severe uncontrollable diarrhea 2 minutes after ingesting it and wants t o know what she can take to so she can eat. Please call her at [phone] to discussElectr onically signed by Shalonda Mcdermott at 06/09/2017 1:21 PM PSTTelephone Encounter - Kiana Mcdermott - 06/05/2017 2:46 PM PSTContact/Caller: melissa-self Contact Number: [phone] Provider/Nurse: Emmy Reason for Call: Melissa stated the pain clinic had her taking belbuca 150 mcg. She stated s he had to stop taking it cause its making her sick. And its not helping her pain so every ti me she goes to the pain clinic (every 2 weeks) all they do is increase it and she is afraid they are trying to overdose her with it. She has concerns and is requesting a returned call to discuss. Last Appointment: 06/01/2017 Next Appointment: 08/31/2017 Patient was told provider is out of the office this afternoon. documented in this encounter Plan of Treatment [...] | | | | | [place] [address] | | | | | | [phone] | | | | | | | | +--------+---------+ + + + + + +--------+ + + | Name | Type | Priori | Associated Diagnoses | Order Schedule | | | | ty | | | + + +--------+ + + | Pain Clinic, | Outpatient | Routin | Chronic bilateral | Expected: | | External - AMB | Referral | e | low back pain | 06/17/2017, Expires: | | Referral | | | without sciatica | 06/17/2018 | | | | | Generalized | | | | | | osteoarthritis | | + + +--------+ + + documented as of this encounter Visit Diagnoses + + | Diagnosis | + + | Chronic bilateral low back pain without sciatica - Primary | + + | Generalized osteoarthritis Generalized osteoarthrosis, unspecified site | + + documented in this encounter"
--- OUTSIDE RECORDS SUMMARY | ~2020-02-29 | XMS | Encounter Summary ---
Demographics + + + | Address | [address] | | | [place] [address] | + + + | Home Phone [...] + +------+ + | Care Director Of Food And Nutrition Services Name | Role | Phone | [...] | | | | | | [address] [place], [place] | | | | | | [address] | | | | | | [phone] | | | +--------+ + + + [...]
--- OUTSIDE RECORDS SUMMARY | ~2020-02-29 | XMS | Encounter Summary ---
Demographics + + + | Address | [address] | | | [place] [address] | + + + | Home Phone [...] + +------+ + | Care Professor Of Biochemistry Name | Role | Phone | + +------+ + | Pedrito Gutierrez MD | PCP | | + +------+ + Reason for Visit + +--------+ + | Reason | Onset | Comments | | | Date | | + +--------+ + | Lab findings, | 08/07/ | | | teaching, guidance, | 2008 | | | and counseling | | | + +--------+ + | Falls | 08/07/ | | | | 2008 | | [...] | | | [facility] | [place], [place] | and counseling; | | | | [address] | [address] | Falls | | | | [address] | [phone] | | | | | [facility] | | | | | | Physician's | | | | | | Pavilion [place], | | | | | | [place] [address] | | | | | | [phone] | | | +--------+ + + + [...] this encounter Miscellaneous Notes Telephone Encounter - Sol Mcdonald - 08/10/2008 11:01 AM PSTPatient called back and I read her the message from Dr Meeks. Thanks 11 :01 AM PSTTelephone Encounter - Beto Meeks MD - 08/09/2008 1:46 PM PST These results are okay. Her vitamin D and iron levels are okay. Please let her know. The re are no new clues about the cause of dizziness Component Reference Range 07/28/2008 IRON SERUM 37-160 ug/dL 89 IRON BIND CAP SERUM 245-400 ug/dL 431 (A) VITAMIN D 25 HYDROXY 30-100 ng/mL 52 CALCIUM (LAB) 8.5-10.5 mg/dL 9.4 PTH, SERUM 12-65 pg/mL 49 elephone Encounter - Sia Lorenz - 08/09/2008 10:17 AM PSTPt called again and would like a call elephone Encounter - Astrid Daniels - 8:37 AM PSTPatient completed labwork at outside lab on 07/25/2008 and had results se nt for Dr. Meeks to review. She would like to discuss this JOJO. She is inquiring if any a bnormalities showed up to explain her dizziness spells. She has experienced 4 spells this p ast month that have caused her to fall. She is afraid she might fracture her hip. Electron ically signed by Astrid Daniels at 08/07/2008 8:37 AM PSTdocumented in this encounter Plan of Treatment Not on filedocumented as of this encounter Visit Diagnoses Not on filedocumented in this encounter"
--- OUTSIDE RECORDS SUMMARY | ~2020-02-29 | XMS | Encounter Summary ---
Demographics + + + | Address | [address] | | | [place] [address] | + + + | Home Phone [...] Team Providers + +------+ + | Care Actuarial Technician Name | Role | Phone | [...] 03/31/ | Office | [facility] at [facility] | Lukasz Charles, | Major Depressive | | 2006 | Visit | [address] | PhD [address] | Disorder, Recurrent | | | | [facility] | [facility] [place] | Episode, Moderate | | | | and Healing, | [address] | ([facility]); Spondylosis | | | | | [phone] | with Myelopathy, | | | | Floor [place], [place] | | Lumbar Region; Left | | | | [address] | | Knee Pain; | | | | [phone] | | Fibromyalgia | | | | [...] ab out her next knee surgery. Diagnosis: [place] I: 1. (296.32) Major depressive disorder, recurrent, moderate. 2. (309.24) Adjustment disorder with anxiety. 3. (307.89) Chronic pain disorder associated with both psychological factors and a gene ral medical condition. [place] II: Deferred [place] III: abdominal pain, migraine headache, low back pain. [place] IV: low finances Victoria V: GAF 55-60 Plan: Return with next medical follow-up appointment. Check mood, knee surgery, pacing, relaxati on, activity, distraction. Continue cognitive/behavioral therapy. Discuss need for further sessions. Total time spent with patient was approximately 45 minutes. LUKASZ CHARLES PHD [facility] [address] [place] [address] And [facility], [address] [place] [address] documented in this encount er Plan of Treatment + + +--------+ + + | Name | Type | Priori | Associated Diagnoses | Order Schedule | | | | ty | | | + + +--------+ + + | OR PSYCHOTHERPY, | Procedures | Routin | Major Depressive | Ordered: 03/31/2007 | | OFFICE (08-27) | | e | Disorder, Recurrent | | | | | | Episode, Moderate | | | | | | ([facility]) Spondylosis | | | | [...] | Major depressive disorder, recurrent episode, moderate ([facility]) Major depressive | | disorder, recurrent episode, moderate | + + | Spondylosis with myelopathy, lumbar region | + + | Left Knee Pain Pain in joint, lower leg | + + | Fibromyalgia syndrome 729.1 Mylagia and myositis, unspecified | + + | Adjustment disorder with anxiety | + + documented in this encounter"
--- OUTSIDE RECORDS SUMMARY | ~2020-02-29 | XMS | Encounter Summary ---
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 She will call me back with test results. elephone Encounter - Adriana Macedo - 01/25/2008 7:57 AM PDTBr moise Meehan calling to get referral to Urologist due to urine incontinence and some disc harge. Patient would like to be referred to a Urologist at [facility]. She can be reached at: [phone]. Pain Scale: na Recent Surgery or Procedure: yes - 12/27/07 Pharmacy: Pharmacy Preferences: [address] [place] [address] 9AM-9PM MON-FRI / 9AM-7PM SAT / 10AM-6PM SUN documented in this enc ounter Plan of Treatment Not on filedocumented as of this encounter Visit Diagnoses Not on filedocumented in this encounter"
--- OUTSIDE RECORDS SUMMARY | ~2020-02-29 | XMS | Encounter Summary ---
Demographics + + + | Address | [address] | | | [place] [address] | + + + | Home Phone [...] Providers + +------+ + | Care Drapery Head Former Name | Role | Phone | + +------+ + | Sulaiman Carrera MD | PCP | | + +------+ + Reason for Visit + +--------+ + | Reason | Onset | Comments | | | Date | | + +--------+ + | Follow-up visit | 04/21/ | | | | 2012 | | + +--------+ + Consultation (Routine) [...] | | | | | Encounter | [place] | | | | | for | [address] | [address] | | | | | long-term | | Phone: | | | | | (current) | | [phone] | | | | | use of other | | Fax: | | | | | medications | | [phone] | | | | | LBP (low [...] 04/21/ | Office | [facility] at [facility] | Lukasz Charles, | Major depressive | | 2013 | Visit | [address] | PhD [address] | disorder, recurrent | | | | Center [facility] | [place], [place] | episode, moderate | | | | and Healing, | [address] | ([facility]) (Primary Dx); | | | | | [phone] | LBP (low back pain); | | | | Floor [place], [place] | | Fibromyalgia; | | | | [address] | | Adjustment disorder | | | | [phone] | | with anxiety | +--------+---------+ + [...] provider who recommended that she return to [facility] for pain assessment and treatment. She [...] some changes in her living situation. Diagnosis: [place] I: 1. (296.32) Major depressive disorder, recurrent, moderate. 2. (309.24) Adjustment disorder with anxiety. [place] II: Deferred [place] III: abdominal pain, migraine headache, low back pain, fibromyalgia. [place] IV: low finances [place] V: GAF 55-60 Plan: return in 1 month. Check mood, pain, activity. Ask about visiting with Dr. Montero, spinal cord stimulator, any changes at home. Continue cognitive/behavioral therapy. Total time spent with patient was approximately 50 minutes. LUKASZ CHARLES PHD [facility] [address] [place] [address] And [facility], [address] [place] [address] documented in this en counter Plan of [...]
--- OUTSIDE RECORDS SUMMARY | ~2020-02-29 | XMS | Encounter Summary ---
Demographics + + + | Address | [address] | | | [place] [address] | + + + | Home Phone [...] Team Providers + +------+ + | Care Apple Picking Supervisor Name | Role | Phone | + +------+ + | Maria Esther Cintron MD | PCP | | + +------+ + Reason for Visit + +--------+ + | Reason | Onset | Comments | | | Date | | + +--------+ + | Medication requested | 11/02/ | sucralfate (CARAFATE) 1 gram Oral Tablet | | | 2007 | | + +--------+ + Encounter Details +--------+ + + + + | Date | Type | Department | Care Team | Description | +--------+ + + + + | 11/01/ | Telephone | [facility] | Chris Padgett, | Medication requested | | 2007 | | [place] [address] | [address] | (sucralfate | | | | Ave Mailcode: CH4S | [address] | (CARAFATE) 1 gram | | | | [facility] | [place], [place] | Oral Tablet) | | | | and Healing, | [address] | | | | | [facility] | [phone] | | | | | [place], [place] | | | | | | [address] | | | | | | [phone] | | | +--------+ + + + [...] Telephone Encounter - Nuris Cardenas Rn - 11/03/2007 5:00 PM PDTMA to have pt call pharmacy to fax request. elephone E kay - Adriana Macedo - 11/03/2007 2:55 PM PDTBrendvera Molly Meehan Making her 2nd call ing to get a refill on sucralfate (CARAFATE) 1 gram Oral Tablet. She has 1 tablet for today and 4 for tomorrow. Pain Scale: 0 Recent Surgery or Procedure: n Pharmacy: Pharmacy Preferences: [facility] [address] [place] [address] 9AM-9PM MON-FRI / 9AM-7PM SAT / 10AM-6PM SUN Contact information: [phone] (home) elephone Encounter - Lolly Herrera - 11/02/2007 8:31 AM PDTPatient needs refill of sucralfate (CARAFATE) 1 gra m Oral Tablet, she will be out . Without this medication dehydration will occur bessy galvan documented in this encoun ter Plan of Treatment Not on filedocumented as of this encounter Visit Diagnoses Not on filedocumented in this encounter"
--- OUTSIDE RECORDS SUMMARY | ~2020-02-29 | XMS | Encounter Summary ---
Demographics + + + | Address | [address] | | | [place] [address] | + + + | Home Phone [...] Team Providers + +------+ + | Care E Commerce Strategist Name | Role | Phone | [...] + + | 02/11/ | Telephone | [facility] | Alanis, | Arm Pain (Right Arm) | | 2017 | | MEDICINE [address] | MD [place] | | | | | [place], | [address] | | | | | [place] [address] | [place] [address] | | | | | [phone] | [phone] | | | | | | | [...] | | | | | [place] [address] | | | | | | [phone] | | | | | | | | +--------+---------+ + + + documented as of this encounter Visit Diagnoses Not on filedocumented in this encounter"
--- OUTSIDE RECORDS SUMMARY | ~2020-02-29 | XMS | Encounter Summary ---
Demographics + + + | Address | [address] | | | [place] [address] | + + + | Home Phone [...] Team Providers + +------+ + | Care Team Assistant Name | Role | Phone | [...] Floor | | | | | | [place], [place] | | | | | | [address] | | | | | | [phone] | | | +--------+ + + + [...] No: | | | | | | [id number] Name: | | | | | | GEOVANNIBELINDA Barnes | | | | | | Birthday: 1960 | | | | | | Sex: F | | | | | | Alias:Patient Location: | | | | | | [id number]: Outpatient | | | | | | ActiveOrdering | | | | | | Physician: JOSÉ MIGUEL | | | | | | MARYSOL MORENO SCAPULA | | | | | | COMPLETE completed on | | | | | | 01/01/2009 11:55 | | | | | | AMAccession # | | | | | | [id number]:LEFT | | | | | | SCAPULA [...]
--- OUTSIDE RECORDS SUMMARY | ~2020-02-29 | XMS | Encounter Summary ---
Demographics + + + | Address | [address] | | | [place] [address] | + + + | Home Phone [...] Providers + +------+ + | Care Line Ordering Clinician Name | Role | Phone | [...] [address] | | | | | [place], [place] | [place], [place] | | | | | [address] | [address] | | | | | [phone] | [phone] | | | | | | | [...]
--- OUTSIDE RECORDS SUMMARY | ~2020-02-29 | XMS | Encounter Summary ---
Demographics + + + | Address | [address] | | | [place] [address] | + + + | Home Phone [...] Team Providers + +------+ + | Care Trailer Rental Clerk Name | Role | Phone | [...] + + | 06/11/ | Refill | [facility] | Alanis, | Medication Refill | | 2017 | | MEDICINE [address] | MD Petrona | | | | | [place], | [address] [facility] | | | | | [place] [address] | [place] [address] | | | | | [phone] | [phone] | | | | | | | [...] this encounter Miscellaneous Notes Telephone Encounter - Mary Kay Kuo - 06/11/2018 9:25 AM PSTPatient states she has one dose left. Please advise. P STdocumented in this encounter Plan of Treatment +--------+---------+ + + + | Date | Type | Specialty | Care Team | Description | +--------+---------+ + + + | 05/17/ | Office | Internal Medicine | Alanis, | | | 2019 | Visit | | MD Petrona | | | | | | [address]la [address] | | | | | | [place] [address] | | | | | | [phone] | | | | | | | | +--------+---------+ + + + documented as of this encounter Visit Diagnoses Not on filedocumented in this encounter"
--- OUTSIDE RECORDS SUMMARY | ~2020-02-29 | XMS | Encounter Summary ---
Demographics + + + | Address | [address] | | | [place] [address] | + + + | Home Phone [...] + +--------+ + | Medication Question | 05/26/ | | | | 2018 | | + +--------+ + Encounter Details +--------+ + + + + | Date | Type | Department | Care Team | Description | +--------+ + + + + | 05/26/ | Telephone | [facility] | Alanis, | Medication Question | | 2018 | | MEDICINE [facility] [address] | MD Petrona | | | | | [place], | [address] | | | | | [place] [address] | [place] [address] | | | | | [phone] | [phone] | | | | | | | [...] Telephone Encounter - Maggie Montoya LPN - 05/27/2019 1:15 PM PSTPatient notified of MD co mment/recommendation. Understands and acceptsElectronically signed by Maggie Montoya LPN at 1 07/28/2018 1:16 PM PSTTelephone Encounter - Maggie Montoya LPN - 05/26/2019 4:13 PM PSTPati ent was asked by a MD did not say who, if a Lidocaine patch would be appropriate for patient with all other medications. Patient was told to ask PCP or consult with pain clinic. Please advise elephone Susanna Sibley - 05/26/2019 4:06 PM PSTPatient called wanting to speak to the nurse. She has a question regarding he medications. Please advise. documented in this encounter Plan of Treatment +--------+---------+ + + + | Date | Type | Specialty | Care Team | Description | +--------+---------+ + + + | 05/17/ | Office | Internal Medicine | Alanis, | | | 2019 | Visit | | MD Petrona | | | | | | [facility] [address] | | | | | | [place] [address] | | | | | | [phone] | | | | | | | | +--------+---------+ + + + documented as of this encounter Visit Diagnoses Not on filedocumented in this encounter"
--- OUTSIDE RECORDS SUMMARY | ~2020-02-29 | XMS | Encounter Summary ---
Demographics + + + | Address | [address] | | | [place] [address] | + + + | Home Phone [...] Providers + +------+ + | Care Planning Management It Specialist Name | Role | Phone | + +------+ + | Pedrito Gutierrez MD | PCP | | + +------+ + Encounter Details +--------+ + + + + | Date | Type | Department | Care Team | Description | +--------+ + + + + | 11/24/ | Respiratory | | Other, Faculty | | | 2003 | | | [phone] | | | | Therapy[facility] | | [...] documented as of this encounter Miscellaneous Notes Maryse - Vilma Gibbons - 02/22/2008 12:59 AM PDT documented in this encounter Plan of Treatment Not on filedocumented as of this encounter Visit Diagnoses Not on filedocumented in this encounter"
--- OUTSIDE RECORDS SUMMARY | ~2020-02-29 | XMS | Encounter Summary ---
Demographics + + + | Address | [address] | | | [place] [address] | + + + | Home Phone [...] Team Providers + +------+ + | Care Coke Oven Mason Name | Role | Phone | [...] as of this encounter Progress Notes Interface, Entry Processor In - 02/19/2005 5:04 AM PDT [id number] [facility] Date: 01/17/2005 Clinic: General [...] with Dr. Dwaine Larson. She has a ljk-zwlp-oalid lesion at the distal aspect of her [...] M.D. Dwaine Larson M.D. JOSE A / [id number] / [id number] / [id number] / [id number] Electronically signed by Dwaine Larson 02-18-2005 09:15:31 AM documented i n this encounter Plan of Treatment Not on filedocumented as of this encounter Visit Diagnoses Not on filedocumented in this encounter
--- OUTSIDE RECORDS SUMMARY | ~2020-02-29 | XMS | Encounter Summary ---
Demographics + + + | Address | [address] | | | [place] [address] | + + + | Home Phone [...] Team Providers + +------+ + | Care Store Team Leader Name | Role | Phone | [...] as of this encounter Progress Notes Interface, Operating Manager In - 08/19/2005 2:05 AM PST [id number] [facility] Date: 07/24/2005 Clinic: Hematology [...] full and complete summary. Lukasz Sellers M.D. vacuum evaporation operator NANCY / SHARIF [id number] / [id number] / [id number] / [id number] cc: Pedrito Gutierrez M.D. [address] [address] Electronically signed by Lukasz Sellers 08-18-2005 01:28:24 PM documented i n this encounter Plan of Treatment Not on filedocumented as of this encounter Visit Diagnoses Not on filedocumented in this encounter"
--- OUTSIDE RECORDS SUMMARY | ~2020-02-29 | XMS | Encounter Summary ---
Demographics + + + | Address | [address] | | | [place] [address] | + + + | Home Phone [...] + +------+ + | Care Grades 1 6 Tutor Name | Role | Phone | + [...] + + | 04/25/ | Refill | [facility] | Alanis, | Medication Refill | | 2016 | | MEDICINE [address] | MD Petrona | | | | | [place], | [address] [facility] | | | | | [place] [address] | [place] [address] | | | | | [phone] | [phone] | | | | | | | [...] supplies. [facility]letonElectronically signed by Tamara Elliott RN [...] | | | | | [place] [address] | | | | | | [phone] | | | | | | | | +--------+---------+ + + + documented as of this encounter Visit Diagnoses Not on filedocumented in this encounter"
--- OUTSIDE RECORDS SUMMARY | ~2020-02-29 | XMS | Encounter Summary ---
Demographics + + + | Address | [address] | | | [place] [address] | + + + | Home Phone [...] Team Providers + +------+ + | Care Specialty Therapist Name | Role | Phone | [...] | 2006 | Visit | [facility] | [address] 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 [facility] 09/23/2006 Belinda Meehan is [...] a gastri c bypass and is much paper spooler now. She is doing PT as this point. With some benefit. She is concerned because she now has some poppin mahesh dlocking symptoms and wants to know if there si something that haz tech be done w ith a scope to [...] (ciprofloxacin) Tramadol Morphine IM ( only in [facility]) made gut pain worse [...] the MRI. Ramon Ibarra M.D. Sports Medicine [facility] [address] [place] [address] [phone] documented in this encoun ter Plan of [...] | | + +---------+ + + | [facility] DEPARTMENT OF | | | | | [...]
--- OUTSIDE RECORDS SUMMARY | ~2020-02-29 | XMS | Encounter Summary ---
Demographics + + + | Address | [address] | | | [place] [address] | + + + | Home Phone [...] Team Providers + +------+ + | Care Looper Fixer Name | Role | Phone | [...] Rd | | | | | | [place], [place] | | | | | | [address] | | | +--------+ + + + [...]
--- OUTSIDE RECORDS SUMMARY | ~2020-02-29 | XMS | Encounter Summary ---
Demographics + + + | Address | [address] | | | [place] [address] | + + + | Home Phone [...] Team Providers + +------+ + | Care Intervention Teacher Name | Role | Phone | [...] [place] | | | | | [place] [address] | [place] [address] | | | | | [phone] | [phone] | | | | | | | [...] get a xray. She can be reached [phone]. 10:3 0 AM PDTdocumented in this encounter [...] | | | | | [place] [address] | | | | | | [phone] | | | | | | | | +--------+---------+ + + + documented as of this encounter Visit Diagnoses Not on filedocumented in this encounter"
--- OUTSIDE RECORDS SUMMARY | ~2020-02-29 | XMS | Encounter Summary ---
Demographics + + + | Address | [address] | | | [place] [address] | + + + | Home Phone [...] | | | | | | [place], | | | | | | | [place] | | | | | | | [address] | | | | | | | Phone: | | | | | | | [phone] | | | | | | | Fax: | | | | | | | [phone] | +--------+--------+ + + + + Encounter Details +--------+---------+ + + + | Date | Type | Department | Care Team | Description | +--------+---------+ + + + | 11/10/ | Office | [facility] | Chris Padgett, | Status Post | | 2007 | Visit | [place] [address] | [address] | Bariatric Surgery; | | | | Ave Mailcode: CH4S | [address] | Abdominal Pain, | | | | Center [facility] | [place], [place] | Other Specified Site | | | | and Healing, | [address] | | | | | Building | [phone] | | | | | Floor [place], [place] | | | | | | [address] | | | | | | [phone] | | | +--------+---------+ + + + [...]
--- OUTSIDE RECORDS SUMMARY | ~2020-02-29 | XMS | Encounter Summary ---
Demographics + + + | Address | [address] | | | [place] [address] | + + + | Home Phone [...] Team Providers + +------+ + | Care Feed Inspection Supervisor Name | Role | Phone | + +------+ + | Petrona Thapa | PCP | | | MD | | | + +------+ + Reason for Visit + +--------+ + | Reason | Onset | Comments | | | Date | | + +--------+ + | Medication Refill | 09/04/ | | | | 2020 | | + +--------+ + Encounter Details +--------+--------+ + + + | Date | Type | Department | Care Team | Description | +--------+--------+ + + + | 09/04/ | Refill | [facility] | Alanis, | Medication Refill | | 2019 | | MEDICINE [address] | MD [place] | | | | | [place], | [address] [place] | | | | | [place] [address] | [place] [address] | | | | | [phone] | [phone] | | | | | | | [...] | | | | | [place] [address] | | | | | | [phone] | | | | | | | | +--------+---------+ + + + documented as of this encounter Visit Diagnoses Not on filedocumented in this encounter"
--- OUTSIDE RECORDS SUMMARY | ~2020-02-29 | XMS | Encounter Summary ---
Demographics + + + | Address | [address] | | | [place] [address] | + + + | Home Phone [...] Providers + +------+ + | Care Franchise Sales Manager Name | Role | Phone [...] 2005 | | Bariatric [address] | [address] | Pain (Primary Dx) | | | | [address] | [address] | | | | | Mailcode: L223A | [place], [place] | | | | | Physician's Sharmila | [address] | | | | | [address] [place], [place] | [phone] | | | | | [address] | | | | | | [phone] | | | +--------+ + + + [...] [facility] | [address] | [place], [place] | | | [facility] | | [address] | | + + + + + documented in this encounter Visit Diagnoses + + | Diagnosis | + + | Chronic abdominal pain - Primary Abdominal pain, unspecified site | + + documented in this encounter"
--- OUTSIDE RECORDS SUMMARY | ~2020-02-29 | XMS | Encounter Summary ---
Demographics + + + | Address | [address] | | | [place] [address] | + + + | Home Phone [...] Team Providers + +------+ + | Care Auriculotherapist Name | Role | Phone | + [...] | | | | Clinical Nutrition | [place], [place] | | | | | [address] | [address] | | | | | Loop Mailcode: OPC5 | [phone] | | | | | Outpatient Clinic | | | | | | [facility], | | | | | | [place] [address] | | | | | | [phone] | | | +--------+ + + + [...]
--- OUTSIDE RECORDS SUMMARY | ~2020-02-29 | XMS | Encounter Summary ---
Demographics + + + | Address | [address] | | | [place] [address] | + + + | Home Phone [...] Providers + +------+ + | Care Bench Examiner Name | Role | Phone | + +------+ + | Pedrito Gutierrez MD | PCP | | + +------+ + Reason for Visit + +--------+ + | Reason | Onset | Comments | | | Date | | + +--------+ + | Memory loss | 09/16/ | | | | 2007 | | + +--------+ + Encounter Details +--------+ + + + + | Date | Type | Department | Care Team | Description | +--------+ + + + + | 09/16/ | Telephone | [facility] | Miranda Lambert, | Memory loss | | 2006 | | Pain Center at | ANP | | | | | [facility] | | | | | | [address] | | | | | | [facility] | | | | | | and Healing, | | | | | | Building | | | | | | Floor [place], [place] | | | | | | [address] | | | | | | [phone] | | | +--------+ + + + [...] Notes Telephone Encounter - Miranda Lambert - 09/16/2006 4:31 PM PDTI called Belinda back and she reproted increased memory loss past few days noted more. Félix any other issues, wanted to know if this could be from her medications. She denies starting any new medications except for Klor Con 20meq for low Potassium yesterd ay. Plan: I instructed her to decrease her Lyrica dose from 225mg bid to 150mg bid and call me and tell me if this helps. I have a follow up with her next week documented in this encoun ter Plan of Treatment Not on filedocumented as of this encounter Visit Diagnoses Not on filedocumented in this encounter"
--- OUTSIDE RECORDS SUMMARY | ~2020-02-29 | XMS | Encounter Summary ---
Demographics + + + | Address | [address] | | | [place] [address] | + + + | Home Phone [...] Team Providers + +------+ + | Care Summer Associate Name | Role | Phone | + +------+ + PCP | Unavailable | + +------+ + Encounter Details +--------+ + + + + | Date | Type | Department | Care Team | Description | +--------+ + + + + | 09/14/ | Hospital | [facility] | Ruben Tobias | | | 2001 | Encounter | MED CTR SLEEP | MD Raj[address] | | | | | [place] [address] | [address] [place] | | | | | [place], [place] | [place] [address] | | | | | [address] | [phone] | | | | | [phone] | | | +--------+ + + + [...] | | | | | [place] [address] | | | | | | [phone] | | | | | | | | +--------+---------+ + + + documented as of this encounter Visit Diagnoses Not on filedocumented in this encounter"
--- OUTSIDE RECORDS SUMMARY | ~2020-02-29 | XMS | Encounter Summary ---
Demographics + + + | Address | [address] | | | [place] [address] | + + + | Home Phone [...] Team Providers + +------+ + | Care Injection Specialist Name | Role | Phone | [...] Pavilion | | | | | | [place], [place] | | | | | | [address] | | | | | | [phone] | | | +--------+---------+ + + + [...] surgeries scheduled to take place on the emmett at the [facility]: Surgeries scheduled in the [facility] ([address] [place] [address]): registration is located on the 4th floor of [facility] (Day Surgery). Surgeries scheduled in the [facility]: registration is located on the 9th floor. Surgeries scheduled in [facility]: registration is located on the 6th floor. Surgeries scheduled in the [facility]: registration is located i n the [facility] on the first floor. For surgeries scheduled to take place at the [facility]: registration is l [...] If you use specialized medical equipment at [facility], please check with your provider before [...]
--- OUTSIDE RECORDS SUMMARY | ~2020-02-29 | XMS | Encounter Summary ---
Demographics + + + | Address | [address] | | | [place] [address] | + + + | Home Phone [...] Providers + +------+ + | Care Supply Requirements Officer Name | Role | Phone | + +------+ + | Pedrito Gutierrez MD | PCP | | + +------+ + Encounter Details +--------+---------+ + + + | Date | Type | Department | Care Team | Description | +--------+---------+ + + + | 08/05/ | Office | Comprehensive [facility] | Nathalia Arora | Cervical Spondylosis | | 2006 | Visit | [facility] | [address] | without Myelopathy | | | | [place] [address] | [address] [place], | (Primary Dx); | | | | [address] [facility] for | [place] [address] | 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 1960 Start of Care: 06/23/2006 Referring Provider: [...] keep hydrated, went to the ED in [place] and was sent home by the Joanna There without a ny treatment and advised by him to contact the pain clinic. Patient did not some relief with her last treatment, and continues her exercises consistent ly. She is walking daily at [facility] for 15-20 minutes, sitting X 60 [...] FL THERAPEUTIC | Procedures | Routin | Cervical [...] FL THERAPEUTIC | Procedures | Routin | Cervical [...]
--- OUTSIDE RECORDS SUMMARY | ~2020-02-29 | XMS | Encounter Summary ---
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 Provider: DELFINA MOLINA ANP elfina Molina - 007 6:13 PM PST.pt rnaga on Nathalia - 07/15/2006 4:28 PM PSTFormatting of this note might be different from the origin al. Physical Therapy Medicare Progress Note Date: 07/15/2006 Belinda Meehan [id number]. 1960 Start of Care: 06/23/2006 Referring Provider: [...]
--- OUTSIDE RECORDS SUMMARY | ~2020-02-29 | XMS | Encounter Summary ---
Demographics + + + | Address | [address] | | | [place] [address] | + + + | Home Phone [...] Providers + +------+ + | Care Mail Weigher Name | Role | Phone | [...] + + | 08/17/ | Telephone | [facility] | Alanis, | Other | | 2019 | | MEDICINE [address] | MD [place] | | | | | [place], | [address] [facility] | | | | | [place] [address] | [place] [address] | | | | | [phone] | [phone] | | | | | | | [...] incontinence supplies form. Patient will call the travayl to see if they receivedElectron ically signed [...] | | | | | [place] [address] | | | | | | [phone] | | | | | | | | +--------+---------+ + + + documented as of this encounter Visit Diagnoses Not on filedocumented in this encounter"
--- OUTSIDE RECORDS SUMMARY | ~2020-02-29 | XMS | Encounter Summary ---
Demographics + + + | Address | [address] | | | [place] [address] | + + + | Home Phone [...] Providers + +------+ + | Care Project Construction Manager Name | Role | Phone | [...] + + | 09/15/ | Office | [facility] | [facility], | Pain in right lower | | 2019 | Visit | MEDICINE [address] | MD [place] | leg (Primary Dx); | | | | AVE [place], | [address] [facility] | Fall in bathtub, | | | | [place] [address] | [place] [address] | initial encounter; | | | | [phone] | [phone] | Other osteoporosis | | | | [...] Procedure: COLONOSCOPY; Surgeon: Luther Brito MD; Location: [facility] MEDICAL PROCEDURE UNIT DILATION AND CURETTAGE OF UTERUS ELBOW SURGERY FINGER TRIGGER RELEASE 2002 FINGER TRIGGER RELEASE 2010 GASTRIC BYPASS SURGERY 2004 HYSTERECTOMY 05/14/1980 JOINT REPLACEMENT Bilateral 2006 2007 KNEE ARTHROSCOPY 2005 LAPAROSCOPY 01/27/2015 LAPAROTOMY 2008 ROTATOR CUFF REPAIR 2005 SPINE SURGERY TONSILLECTOMY 1964 UPPER GASTROINTESTINAL ENDOSCOPY N/A 12/18/2017 Procedure: EGD; Surgeon: Luther Brito MD; Location: [facility] MEDICAL PROCEDURE UNIT CURRENT MEDICATIONS Current [...] ours as needed for Pain. Incontinence Supplies [facility] As directed 100 each 11 levothyroxine (SYNTHROID) [...] Cla Maddie Thapa MD 1,000 mcg at 06/17/18 1132 ALLERGIES Allergies Allergen Reactions Ensure Diarrhea Food Diarrhea Lactose Codeine Sulfate Nausea Only Levofloxacin Hives, Itching and Rash Butalbital Ropinirole Amitriptyline Hcl Other (See Comments) Confused and questionable for seizures Meevfsvrxa-Zhrd-Ianvitxs Hives and Rash Cephalexin Hives Ciprofloxacin Hives [...] Note: Parts of this documentwere created using [employer] speech recognition software. As a r esult, [...] | | | [address] [facility] | | | | | | [place] [address] | | | | | | [phone] | | | | | | | [...] | | | First dose on [facility] 10/15/17 at 1215 | | | [...]
--- OUTSIDE RECORDS SUMMARY | ~2020-02-29 | XMS | Encounter Summary ---
Demographics + + + | Address | [address] | | | [place] [address] | + + + | Home Phone [...] Providers + +------+ + | Care [facility] Name | Role | Phone | + [...] + | 06/13/ | Refill | [facility] | Alanis, | Medication Refill; | | 2018 | | MEDICINE [address] | MD Petrona | Medication Refill | | | | [place], | [address] [facility] | | | | | [place] [address] | [place] [address] | | | | | [phone] | [phone] | | | | | | | [...] office and will have to go to [facility] refrigeration engine operator doctor. Patient would like to have the [...] evening Quantity Remainin Pharmacy: [facility] Call/Mail/Green Lumber Grader/Fax: Fax Date of Last Refill: 05/14/2019 Date [...] | | | | | | [facility] [address] | | | | | | [place] [address] | | | | | | [phone] | | | | | | | | +--------+---------+ + + + documented as of this encounter Visit Diagnoses Not on filedocumented in this encounter"
--- OUTSIDE RECORDS SUMMARY | ~2020-02-29 | XMS | Encounter Summary ---
Demographics + + + | Address | [address] | | | [place] [address] | + + + | Home Phone [...] Team Providers + +------+ + | Care Electronics Maintenance Technician Name | Role | Phone [...] of this encounter Progress Notes Interface, Machine Compositor In - 08/14/2005 2:05 AM PST [id number] GEOVANNI SKELTON [facility] Date: 08/06/2005 Clinic: [...] of antiinflammatory diet that one of the talent manager in [place] has written a book about, and I have had a patient do extremely well with it in terms of her IBS and fibromyalgia pain and fatigue. Belinda is interested in this and will pursue it. 3. I have given her a lot of articles that she can pass onto her physicians in [place]. She would like somebody there to learn [...] 4 months. Caitlin Rivera M.S., F.N.P. / [id number] / [id number] / [id number] / [phone] cc: Pedrito Gutierrez M.D. [address] [place] [address] Electronically signed by Caitlin Rivera 08-13-2005 03:37:47 PM documented i n this encounter Plan of Treatment Not on filedocumented as of this encounter Visit Diagnoses Not on filedocumented in this encounter"
--- OUTSIDE RECORDS SUMMARY | ~2020-02-29 | XMS | Clinical Summary ---
Demographics + + + | Address | [address] | | | [place] [address] | + + + | Home Phone [...] Providers + +------+ + | Care Industrial Relations Director Name | Role | Phone | [...] + + + + + + | Kzjdmqlhpc-Kpzg-Oqyq | Rash | Low | | duplicate | | eine | | | | | + + + + + + | Ekaihycpfr-Ugdj-Fmwy | Hives, Rash | Low | 03/25/20 | | | eine | | | 17 | | + + + + + + | Jfnskbavza-Vbe-Wqjc- | Other (See Comments) | Medium | [...] + + + | Clindamycin Hcl | Camille Rash | Low | | | + [...] | 19 | | | | : USP | Decreased | | | | | [...] tablet by | 30 | 11 | 08/3 | | Activ | | tartrate (LOPRESSOR) | mouth twice a day. | tablet | | 1/20 | | e | | 25 mg tablet | | | | 20 | | | + + + +---------+------+------+-------+ | AIMOVIG 70 MG/ML | inject 1 milliliter | | 0 | 08/2 | | Activ | | injection | subcutaneously every | | | 1/20 | | e | | | 30 DAYS | | | 20 | | | + + + +---------+------+------+-------+ | diclofenac | apply 1 to 2 grams | | 0 | 07/1 | | Activ | | (VOLTAREN) 1% GEL | topically three | | | 6/20 | | e | | | times a day | | | 20 | | | + + + +---------+------+------+-------+ | metoprolol | take 1/2 tablet by | 30 | 11 | 09/0 | 08/3 | Disco | | tartrate (LOPRESSOR) | mouth twice a day | tablet | | /20 | /20 | ntinu | | 25 mg tablet | | | | 19 | 20 | ed | | | | | | | | (Reor | | | | | | | | crista | | | | | | | | (no | | | | | | | | Cance | | | | | | | | l Rx | | | | | | | | msg)) | + + + +---------+------+------+-------+ | traZODone | Take 1 tablet by | 30 | 3 | 10/0 | 09/0 | Disco | | (DESYREL) 50 mg | mouth nightly as | tablet | | 7/20 | 3/20 | ntinu | | tabletIndications: | needed for Insomnia. | | | 19 | 20 | ed | | Primary insomnia, | | | | | | (Ther | | Situational | | | | | | apy | | depression | | | | | | compl | | | | | | | | eted) | + + + +---------+------+------+-------+ | SUMAtriptan | Take 1 tablet by | 12 | 5 | 06/2 | 09/0 | Disco | | (IMITREX) 100 mg | mouth as needed for | tablet | | 20 | 3/20 | ntinu | | tabletIndications: | Migraine Take 1 tab | | | 20 | 20 | ed | | Migraine without | by mouth on on-set | | | | | (Ther | | aura and without | of Migraine, may | | | | | apy | | status migrainosus, | repeat in 2 hours if | | | | | compl | | not intractable | needed. Max 2 tabs/ | | | | | eted) | | | 24 hours. | | | | | | + + + +---------+------+------+-------+ | UNABLE TO | Compression Velcro | 1 each | 0 | 07/0 | 09/0 | Disco | | FINDIndications: | Brace Pads for Lower | | | 8/20 | 3/20 | ntinu | | Venous insufficiency | Legs (1 Pair) REHAN: | | | 20 | 20 | ed | | of both lower | 99 months.. 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 | 02/16/2020 | + + + | B12 deficiency [...] + + | 02/27/ | Telephone | Internal Medicine | Alanis, | Migraine | | 2019 | | | MD Petrona | | +--------+ + + + + | 02/26/ | Hospital | Infusion Therapy | Alanis, | Age-related | | 2019 | Encounter | | MD Petrona | osteoporosis without | | | | | | current | | | | | | pathological | | | | | | fracture (Primary | | | | | | Dx) | +--------+ + + + + | 02/26/ | Telephone | Internal Medicine | Alanis, | Imaging | | 2019 | | | MD Petrona | | +--------+ + + + + | 02/15/ | Office | Internal Medicine | Alanis, | Skin lesion of left | | 2019 | Visit | | MD Petrona | leg (Primary Dx); | | | | | | Migraine without | | | | | | aura and without | | | | | | status migrainosus, | | | | | | not intractable; B12 | | | | | | deficiency; | | | | | | Osteoporosis due to | | | | | | malabsorption; Need | | | | | | for vaccination | +--------+ + + + + | 02/15/ | Telephone | Internal Medicine | Marlyn Rodriguez, | Treatment Order | | 2019 | | | PharmD | | +--------+ + + + + | 02/15/ | Telephone | Internal Medicine | Alanis, | Referral Question | | 2019 | | | MD Petrona | | +--------+ + + + + | 02/13/ | Telephone | Otolaryngology | Ulysses Genao MD | Other (letter | | 2020 | | | | request) | +--------+ + + + + | 02/12/ | Refill | Internal Medicine | Alanis, | Medication Refill | | 2020 | | | MD Petrona | | +--------+ + + + + | 02/07/ | Telephone | Internal Medicine | Alanis, | Cramps | | 2020 | | | MD Petrona | | +--------+ + + + + | 01/23/ | Telephone | Internal Medicine | Alanis, | Blister | | 2020 | | | MD Petrona | | +--------+ + + + + | 12/20/ | Off-Site | Otolaryngology | Alanis, | Sensorineural | | 2020 | Visit | | [...] Visit | | MD Petrona | Dx); Meniere's | | | | | Elisabet Munson [...] Headache (Adult - | 2019 | | | MD Petrona [...] + + + + | INFLUENZA PF 17 Y OR | 02/16/2020 | | | >,QUADRIVALENT | | | | RECOMBINANT | | | + + + + | INFLUENZA PF | 02/15/2019, 02/17/2018, 02/04/2017 | | | QUAD(PED/ADOL/ADULT) | | | | ,PSKT or VIAL | | | + + + + | INFLUENZA PF | 02/06/2016, 02/14/2015, 02/16/2014, | | | TRIVALENT(PED/ADOL/A | 02/13/2013, 02/02/2012, 02/03/2011 | | | ANASTASIYA PSKT | | | + + + [...] | | | | [address] [facility] [address] | | | | | | [place] [address] | | | | | | [phone] | | | | | | | [...] + + + + | Med Mgmt: BUN | | 04/18/20 | | | | [...] | 12, | | | | | 11/07/20 | | | | | 09, | [...] + | Vaccine: Influenza | Completed | 02/16/20 | | | | | 20, | | | | | 02/16/20 | [...] + | IMAGING REPORT - | | 01/31/2020 | | Results for this | | EXTERNAL SCAN | | 12:00 AM | | procedure are in the | | | | PDT | | results section. | + +--------+ + + + | LABS - EXTERNAL SCAN | | 01/30/2020 | | Results for this | | [...] + + from Last 3 Months Results IMAGING REPORT - EXTERNAL SCAN (01/31/2020 12:00 AM PDT)Only the most recent of 2 results w ithin the time period is included. + + + | Narrative | Performed At | + + + | Ordered by an | | | unspecified provider. | | + + + LABS - EXTERNAL SCAN (01/30/2020 12:00 AM PDT) + + + | Narrative | Performed At | + + + | Ordered by an | | | unspecified provider. | | + + + Vitamin B-12 (12/21/2019 10:00 AM PDT) + [...] ST. | [address] | [place], [place] | [phone] | | [facility] | | [address] | | | - LABORATORY | | | | + + + + + DIAGNOSTIC REPORT - EXTERNAL SCAN (12/21/2019 12:00 AM PDT) + + + | Narrative | Performed At | + + + | Ordered by an | | | unspecified provider. | | + + + from Last 3 Months [...] +--------+ +---------+--------+ | MEDICARE | MEDICA | [id number] | 07/16/19 | [phone] | | Medica | | | RE | | 03-Pre | 5 | | re | | | PART A | | sent | | | | | | AND B | | | | | | + +--------+ +--------+ +---------+--------+ | [employer] | MODA | [id number] | 06/16/19 | [phone] | | Medica | | MEDICAID HMO [...] Self | [birth year] | [address] | | | al/Fam | | 9 | [id number] | [place] [address] | | | bijan | | | 0 (Home) | | + +--------+ +--------+ + + | Belinda Meehanan | Person | Self | [birth year] | [address] | | | al/Fam | | 1960 | [phone] | [place] [address] | | | bijan | | | 0 (Home) | | + +--------+ +--------+ + + Advance Directives + + + + + | Type | Date Recorded | Patient | Explanation | | | | Tonsorial Artist | | + + + + + | Power of | | | | | Soil Chemist | | | | + + + + + | Advance | 10/14/2018 10:09 | | | | Directive | AM | | | + + + + +
--- OUTSIDE RECORDS SUMMARY | ~2020-02-29 | XMS | Encounter Summary ---
Demographics + + + | Address | [address] | | | [place] [address] | + + + | Home Phone [...] Providers + +------+ + | Care Automation Engineer Name | Role | Phone | [...] | | | | Clinical Nutrition | [place], [place] | | | | | [address] | [address] | | | | | Loop Mailcode: OPC5 | [phone] | | | | | Outpatient Clinic | | | | | | [facility], | | | | | | [place] [address] | | | | | | [phone] | | | +--------+ + + + [...]
--- OUTSIDE RECORDS SUMMARY | ~2020-02-29 | XMS | Encounter Summary ---
Demographics + + + | Address | [address] | | | [place] [address] | + + + | Home Phone [...] Team Providers + +------+ + | Care Pig Farm Manager Name | Role | Phone [...] Status Post | | 2007 | | [place] [address] | [address] [facility] | Bariatric Surgery | | | | Ave Mailcode: CH4S | [address] | (Primary Dx) | | | | [facility] | [place], [place] | | | | | and Healing, | [address] | | | | | Building [address]th | [phone] | | | | | Floor [place], [place] | | | | | | [address] | | | | | | [phone] | | | +--------+ + + + [...] [place] | | | | | | [place] [address] | | | | | | [phone]. | | | | | | Sincere [...] [facility] | [address] | [place], [place] | | | [facility] | | [address] | | + + + + + [...] | pg/mL | | | | | [facility]. | | | | + + + + + + + + | Specimen | + + | | + + + + + + + | Performing | Address | City/State/Zipcode | Phone Number | | Organization | | | | + + + + + | [facility] | [address] | [place] [address] | | | LABORATORY | | | [...] change effective | | | 04/05/07 [facility] ([facility]) | | | [facility] [place] [address] | | | [place] [address] | | + + + + + + + + | Performing | Address | City/State/Zipcode | Phone Number | | Organization | | | | + + + + + | [facility] | [address] | [place] [address] | | | LABORATORY | | | [...] [facility] ([facility]) | | | [facility] [address] | | | [place] [address] | | + + + + + + + + | Performing | Address | City/State/Zipcode | Phone Number | | Organization | | | | + + + + + | [facility] | [address] | [place] [address] | | | LABORATORY | | | [...] Performed At | + + + | [address] Estimated GFR > 60 mL/min/1.73 sq m if non- | [facility] | | [address] Estimated GFR > 60 mL/min/1.73 sq m [...] | + + + + + | [facility] | [address] [facility] | [place] [address] | | | PATHOLOGY | [address] | | | + + + + + | [facility] | [address] [facility] | [place] [address] | | | PATHOLOGY | [address] [...] | + + + + + | [facility] | [address] | [place] [address] | | | PATHOLOGY | [address] | | | + + + + + | [facility] | [address] | [place] [address] | | | PATHOLOGY | [address] | | | + + + + + documented in this encounter Visit Diagnoses + + | Diagnosis | + + | Status post bariatric surgery - Primary Bariatric surgery status | + + documented in this encounter"
--- OUTSIDE RECORDS SUMMARY | ~2020-02-29 | XMS | Encounter Summary ---
Demographics + + + | Address | [address] | | | [place] [address] | + + + | Home Phone [...] Providers + +------+ + | Care Gas Leak Inspector Helper Name | Role | Phone | [...] | | | [address] | [address] Phone: | | | | | | [place], | [phone] | | | | | | [place] | Fax: | | | | | | [address] | [phone] | | | | | | Phone: | | | | | | | [phone] | | | | | | | Fax: | | | | | | | [phone] | | +--------+ + + + + [...] + + | 11/18/ | Telephone | [facility] | Alanis, | Vertigo (Recurrent) | | 2017 | | MEDICINE [address] | MD Petrona | | | | | [place], | [address] [place] | | | | | [place] [address] | [place] [address] | | | | | [phone] | [phone] | | | | | | | [...] like a c all back to advise, [phone]. 11 :59 AM PDTdocumented in this encounter [...] | | | | | [place] [address] | | | | | | [phone] | | | | | | | [...]
--- OUTSIDE RECORDS SUMMARY | ~2020-02-29 | XMS | Encounter Summary ---
Demographics + + + | Address | [address] | | | [place] [address] | + + + | Home Phone [...] | Specialty | Bone | Diagnoses | Anika Padgett | | | Services | Densitometry | Status post | MD Chris | Bonedensity | | | Required | | gastric | [address] | [address] | | | | | bypass for | Jayce Hartley | [address] | | | | | obesity | [address] | Mailcode: | | | | | Procedures | [place], [place] | [facility] | | | | | CONSULT TO | [address] | for Health | | | | | BONE | Phone: | and Healing, | | | | | DENSITOMETRY | [phone] | Building [address] | | | | | | Fax: | [place], [place] | | | | | | [phone] | [address] | | | | | | | Phone: | | | | | | | [phone] | | | | | | | Fax: | | | | | | | [phone] | +--------+ + + + + + [...] | | | [facility] | [place], [place] | Bypass for Obesity | | | | and Healing, | [address] | | | | | [facility] | [phone] | | | | | Floor [place], [place] | | | | | | [address] | | | | | | [phone] | | | +--------+---------+ + + + [...] + documented in this encounter Progress Notes Fee Nuris Sanchez T - 05/26/2006 8:49 AM PSTPt s/p gastric bypass 11/22/03 and panniculectomy with chronic abd. pain. Here for results of recent EGD and capsule endoscopy. Is schedu led with pain svc. Fri. 05/29. Hx. vertebral fx. with last BMD [...]
--- OUTSIDE RECORDS SUMMARY | ~2020-02-29 | XMS | Encounter Summary ---
Demographics + + + | Address | [address] | | | [place] [address] | + + + | Home Phone [...] Providers + +------+ + | Care Die Cut Operator Name | Role | Phone | [...] | 02/10/ | Refill | [facility] | Alanis, | Medication Refill | | 2018 | | [facility] [address] | MD Petrona | | | | | [place], | [address] [place] | | | | | [place] [address] | [place] [address] | | | | | [phone] | [phone] | | | | | | | [...] AM PDTReceived fax from Tayo morelos in [place] for a refill of her ondansetron 4 [...] | | | | | [place] [address] | | | | | | [phone] | | | | | | | | +--------+---------+ + + + documented as of this encounter Visit Diagnoses + + | Diagnosis | + + | Nausea Nausea alone | + + documented in this encounter"
--- OUTSIDE RECORDS SUMMARY | ~2020-02-29 | XMS | Encounter Summary ---
Demographics + + + | Address | [address] | | | [place] [address] | + + + | Home Phone [...] + +------+ + | Care Automotive Parts Person Name | Role | Phone | + +------+ + | Pedrito Gutierrez MD | PCP | | + +------+ + Encounter Details +--------+ + + + + | Date | Type | Department | Care Team | Description | +--------+ + + + + | 03/26/ | Telephone | [facility] Division of | Carlos Arreola, | | | 2005 | | Gastroenterology/Hep | [address] | | | | | atology [address] | | | | | [address] | [place] [address] | | | | | Mailcode: [id number] | [phone] | | | | | Physician's Sharmila | | | | | | [address] | | | | | | [place], [place] | | | | | | [address] | | | | | | [phone] | | | +--------+ + + + [...] Notes Telephone Encounter - Carlos Arreola - 03/30/2006 11:34 AM PDTspoke to patient, gave her lab results, confirmed prep instructions for endoscopy elephone Encounter - Jerman Rosario - 03/26/2006 2:08 PM PDT I CALLED BACK, PT HAD QUESTION ON OMEPRAZOLE RX YOU TOLD HER ABOUT BUT SHE NEVER GOT A SCRIP T, SHE WILL TRY AND GET ONE FROM HER PCP. PT ALSO REQUESTING LAB RESULTS FROM 03/10/06, PLS INTERPRET. SPECIFICALLY ASKED FOR CALCIUM LEVEL.Electronically signed by Jerman Rosario at 1 2:08 PM PDTTelephone Encounter - 03/26/2006 2:06 PM PDT Staff Message copied by JERMAN ROSARIO on 03/26/2006 at 2:06 PM ------ Message from: JERMAN ROSARIO Created: 03/25/2006 at 2:39 PM Regarding: PROCEDURE Contact: [facility] [phone] 1:34 PM 03/25/06. "I SAW DR. ARREOLA ON THE OF LAST MONTH A [place] I AM SCHEDULE FOR PROC NEXT WEEK, IF SOMEONE COULD CALL ME BACK." documented in this encoun ter Plan of Treatment Not on filedocumented as of this encounter Visit Diagnoses Not on filedocumented in this encounter
--- OUTSIDE RECORDS SUMMARY | ~2020-02-29 | XMS | Encounter Summary ---
Demographics + + + | Address | [address] | | | [place] [address] | + + + | Home Phone [...] Providers + +------+ + | Care Remote Encoding Center Manager Name | Role | Phone [...] | | right | [address] | [address] Phone: | | | | | supraspinatu | [place], | [phone] | | | | | s tendon, | [place] | Fax: | | | | | initial | [address] | [phone] | | | | | encounter | Phone: | | | | | | | [phone] | | | | | | | Fax: | | | | | | | [phone] | | +--------+ + + + + [...] Acute pain | Emmy-Tajt | [address] | | | | | of right | i, | [place], | | | | | shoulder | John | [place] | | | | | Procedures | , MD [address] | [address] | | | | | MRI Shoulder | [address] | Phone: | | | | | Right wo | [place], | [phone] | | | | | Contrast | [place] | Fax: | | | | | | [address] | [phone] | | | | | | Phone: | | | | | | | [phone] | | | | | | | Fax: | | | | | | | [phone] | | +--------+--------+ + + + + [...] + + | 01/15/ | Office | [facility] | Alanis, | Acute pain of right | | 2017 | Visit | MEDICINE [address] | MD John | shoulder (Primary | | | | [address]VE [place], | [address] [place] | Dx); Chronic | | | | [place] [address] | [place] [address] | diarrhea; Fatty | | | | [phone] | [phone] | liver; S/P bariatric | | | [...] with myelopathy, lumbar region Stroke ([facility]) Syncope Tremor Type II or unspecified [...] Procedure: COLONOSCOPY; Surgeon: Luther Brito MD; Location: [facility] MEDICAL PROCEDURE UNIT DILATION AND CURETTAGE OF UTERUS ELBOW SURGERY FINGER TRIGGER RELEASE 2002 FINGER TRIGGER RELEASE 2010 GASTRIC BYPASS SURGERY 2004 HYSTERECTOMY 05/14/1980 JOINT REPLACEMENT Bilateral 2007,2008 KNEE ARTHROSCOPY 2005 LAPAROSCOPY 01/27/2015 LAPAROTOMY 2008 ROTATOR CUFF REPAIR 2005 SPINE SURGERY TONSILLECTOMY 1964 UPPER GASTROINTESTINAL ENDOSCOPY N/A 12/18/2017 Procedure: EGD; Surgeon: Luther Brito MD; Location: [facility] MEDICAL PROCEDURE UNIT CURRENT MEDICATIONS Current [...] (See Comments) Confused and questionable for seizures Zganinuqxb-Tetm-Vzkmubtr Hives and Rash Cephalexin Hives Ciprofloxacin Hives [...] Note: Parts of this documentwere created using Zixi speech recognition software. As a r esult, [...] | | | | | | [place] [address] | | | | | | [phone] | | | | | | | | +--------+---------+ + + + + + +--------+ + + | Name | Type | Priori | Associated Diagnoses | Order Schedule | | | | ty | | | + + +--------+ + + | * [facility] | Outpatient | Routin | [...]
--- OUTSIDE RECORDS SUMMARY | ~2020-02-29 | XMS | Encounter Summary ---
Demographics + + + | Address | [address] | | | [place] [address] | + + + | Home Phone [...] Team Providers + +------+ + | Care Slab Lifting Supervisor Name | Role | Phone | [...] + + | 09/14/ | Telephone | [facility] | Alanis, | Referral | | 2017 | | MEDICINE [address] | MD Petrona | | | | | [place], | [address] [facility] | | | | | [place] [address] | [place] [address] | | | | | [phone] | [phone] | | | | | | | [...] | | | | | | [address] [place] [address] [place] | | | | | | [place] [address] | | | | | | [phone] | | | | | | | | +--------+---------+ + + + documented as of this encounter Visit Diagnoses Not on filedocumented in this encounter"
--- OUTSIDE RECORDS SUMMARY | ~2020-02-29 | XMS | Encounter Summary ---
Demographics + + + | Address | [address] | | | [place] [address] | + + + | Home Phone [...] Providers + +------+ + | Care Industrial Engineering Analyst Name | Role | Phone | [...] | | | | | Encounter | [place], [place] | [place] | | | | | for | [address] | [address] | | | | | long-term | | Phone: | | | | | (current) | | [phone] | | | | | use of other | | Fax: | | | | | medications | | [phone] | | | | | LBP (low [...] Diagnoses | Paco, | Fili Pt Computer Customer Support Specialist | | | | Therapy | Myalgia and | Rosi T, ANP | [facility] [address] | | | | | myositis, | [address] | | | | | unspecified | [address] | Mailcode: | | | | | LBP (low | [place], [place] | [facility] | | | | | back pain) | [address] | [facility] | | | | | Chronic | | and Healing, | | | | | shoulder | | [address] | | | | | pain Muscle | | [place], [place] | | | | | strain | | [address] | | | | | Radicular | | Phone: | | | | | pain in left | | [phone] | | | | | arm Neck [...] | Chronic | Taqueria Strong NP | [place] | | | | | neck pain | [address] | [address] | | | | | Low back | [address] [place] | [address] | | | | | pain | [place], [place] | [place], [place] | | | | | | [address] | [address] | | | | | | Phone: | | | | | | | [phone] | | | | | | | Fax: | | | | | | | [phone] | | +--------+--------+ + + + + Encounter Details +--------+---------+ + + + | Date | Type | Department | Care Team | Description | +--------+---------+ + + + | 04/05/ | Office | [facility] Comprehensive | Rosi Antonio, | LBP (low back pain) | | 2012 | Visit | Pain Center at | ANP | (Primary Dx); | | | | [facility] [place] [place] | | Fibromyalgia | | | | [address] | | syndrome 729.1; | | | | [facility] | | Encounter for | | | | and Healing, | | Long-Term (Current) | | | | Building | | Use of Opioids; | | | | Floor [place], [place] | | Chronic Bilateral | | | | [address] | | Shoulder Pain; | | | | [phone] | | Muscle Strain hips; | | [...] Instructions Patient Instructions Rosi Antonio ANP - 04/05/2013 9:40 AM PDT Recommendations: [...] to discuss these treatment options. Consult to [facility] physical therapy: A supervised physical [...] you have questions or concerns. [facility] [address] [facility] Mail Code: [place] [address] documented in this encounter Progress Notes Rosi Antonio ANP - 04/05/2013 9:28 AM PDTFormatting of this note might be different fro m the original. [facility] Office Visit 04/05/2013 Belinda Meehan; ; : 1960 Ms. Meehan was referred for pain management consultation by Taqueria Raman NP [address] [place] [address] Chief Complaint Patient presents with New patient [...] steroid injections by Dr. 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. This visit can be in tandem [...] before her lumbar surgeries and recently in [place]. She has short-term relief from the se treatments. I would like her to return to see Dr. Murali Montero to discuss these treatment options. Consult to [facility] physical therapy: A supervised physical [...] of which more than 50% was spent kfrvh-lm-rbit in revie wing pain questionnaire, medical record, consultation, discussion, addressing questions and counselling/education. [facility] [address] [place] [address] Mail Code: [address] [address] Maris Costa MA - 04/05/2013 8:25 AM PDT Review [...] Neurologic Exam docum ented in this encounter Procedure Notes Other, Faculty - 04/25/2013 10:20 AM PSTAssociated Order(s): RADIOLOGY documented in this encounter Miscellaneous Notes Scan - Other, Faculty - 04/21/2013 3:47 PM PSTElectronically signed by Faculty Other at 3:47 PM PSTScan - Other, Faculty - 04/13/2013 7:07 AM PDT documented in this encounter Plan [...]
--- OUTSIDE RECORDS SUMMARY | ~2020-02-29 | XMS | Encounter Summary ---
Demographics + + + | Address | [address] | | | [place] [address] | + + + | Home Phone [...] + +------+ + | Care Director Of Special Events Name | Role | Phone | + [...] as of this encounter Procedure Notes Interface, Conductor Symphonic Orchestra In - 06/11/2006 6:51 AM PST PROCEDURES:COLONOSCOPY CPT: 84682. WITH POLYPECTOMY. CPT: 07492. PERSONNEL:ENDOSCOPIST: NIYA RODRIGUEZ MD. NURSE: VINNIE DANIELS RN. SLOPE RUNNER: XIN WILLIAMSON. REFERRED BY:GIULIANA JOSE MD. ELIEZER RUANO MD. EXAM LOCATION:EXAM PERFORMED IN ENDOSCOPY SUITE. OUTPATIENT PATIENT CONSENT:PROCEDURE, ALTERNATIVES, RISKS AND BENEFITS DISCUSSED, CONSENT OBTAINED, FROM PATIENT. CONSENT WAS OBTAINED BY THE PHYSICIAN. CONSENT TO BE CONTACTED WAS NOT REQUESTED. INCREASED RISK SCREENING:FOR FAMILY HISTORY OF COLORECTAL NEOPLASIA, IN GRANDPARENT CURRENT MEDICATIONS:PATIENT IS NOT CURRENTLY TAKING COUMADIN. MEDICAL/ SURGICAL HISTORY:JACQUIE-EN-Y GASTRIC BYPASS, PRE-EXAM PHYSICAL:PERFORMED APR 02, 2006. ENTIRE PHYSICAL EXAM WAS NORMAL. EXAM:EXTENT OF EXAM REACHED: TERMINAL ILEUM, EXTENT INTENDED: TERMINAL ILEUM. THE CECUM WAS IDENTIFIED BY APPENDICEAL ORIFICE AND IC VALVE. PATIENT POSITION: ON LEFT SIDE. DURATION OF EXAM: 35 MINUTES. COLON RETROFLEXION PERFORMED. IMAGES TAKEN. ASA CLASSIFICATION: II. TOLERANCE: GOOD. MONITORING:PULSE AND BP MONITORING, OXIMETRY USED. COLON PREPUSED panpan PREP KIT FOR COLON PREP. PREP RESULTS: GOOD. FLUOROSCOPY:FLUOROSCOPY WAS NOT USED. SEDATION MEDS:PATIENT ASSESSED AND FOUND TO BE APPROPRIATE FOR MODERATE (CONSCIOUS) SEDATION. SEDATION WAS MANAGED BY THE ENDOSCOPIST. THE PATIENT WAS NOT INTUBATED. FENTANYL 100 MCG. GIVEN IV. MIDAZOLAM 4 MG. GIVEN IV. INSTRUMENT(S):[id number] VARIABLE STIFFNESS. SERIAL #[id number]. - MULTIPLE POLYPS: SIGMOID COLON. MAXIMUM SIZE 3 MM. PROCEDURE: BIOPSY WITHOUT CAUTERY, REMOVED, POLYP RETRIEVED, 2 POLYPS POLYPS SENT TO PATHOLOGY. PATH # 2. - MULTIPLE POLYPS: SIGMOID COLON TO RECTUM. MINIMUM SIZE 4 MM, MAXIMUM SIZE 5 MM. PROCEDURE: SNARE WITHOUT CAUTERY, REMOVED, POLYP RETRIEVED, 2 POLYPS POLYPS SENT TO PATHOLOGY. PATH # 3. ICD9: NEOPLASIA, BENIGN, LARGE BOWEL: 211.3. - HEMORRHOIDS: INTERNAL. ICD9: HEMORRHOIDS, INTERNAL: 455.0. ABNORMAL EXAMINATION, SEE FINDINGS ABOVE. DIAGNOSES: 211.3: NEOPLASIA, BENIGN, LARGE BOWEL. 455.0: HEMORRHOIDS, INTERNAL. COMMENTS:1. INTERNAL HEMORRHOIDS. 2. TWO DIMINUTIVE POLYPS IN THE SIGMOID, BIOPSIED AND REMOVED. TWO SESSILE POLYPS IN THE RECTUM, SNARED. 3. NORMAL APPEARING TERMINAL ILEUM. NO CAUSE FOUND FOR ABDOMINAL PAIN ON THIS EXAM. 4. PROCEDURE DIFFICULT DUE TO EXCESSIVE LOOPING. STARTED PROCEDURE WITH PEDIATRIC VARIABLE STIFFNESS COLONOSCOPE AND HAD TO SWITCH TO ADULT SCOPE; RECOMMEND FUTURE EXAMS WITH ADULT COLONOSCOPE. UNPLANNED INTERVENTIONS:NO INTERVENTION WAS REQUIRED. UNPLANNED EVENTS:THERE WERE NO COMPLICATIONS. MEDICATION PLAN:AWAIT PATHOLOGY. DISPOSITION:AFTER PROCEDURE PATIENT SENT TO SHORT STAY UNIT. AFTER RECOVERY PATIENT SENT HOME. PATHOLOGY:POLYPS: RECTUM. PATH # 3. POLYPS: SIGMOID COLON. PATH # 1. PATH # 2. REPORT ENTERED BY: NIYA RODRIGUEZ MD nterface, Conductor Symphonic Orchestra In - 04/03/2006 2:02 AM PDT PROCEDURES:PANENDOSCOPY (EGD) CPT: 76547. WITH BIOPSY(S)/BRUSHING(S). CPT: 16200. PERSONNEL:ENDOSCOPIST: NIYA RODIRGUEZ MD. NURSE: VINNIE DANIELS RN. SLOPE RUNNER: XIN WILLIAMSON. REFERRED BY:GIULIANA JOSE MD. ELIEZER RUANO MD. EXAM LOCATION:EXAM PERFORMED IN ENDOSCOPY SUITE. OUTPATIENT PATIENT CONSENT:PROCEDURE, ALTERNATIVES, RISKS AND BENEFITS DISCUSSED, CONSENT OBTAINED, FROM PATIENT. CONSENT WAS OBTAINED BY THE PHYSICIAN. CONSENT TO BE CONTACTED WAS NOT REQUESTED. SYMPTOMS:ABDOMINAL PAIN, CURRENT MEDICATIONS:PATIENT IS NOT CURRENTLY TAKING COUMADIN. MEDICAL/SURGICAL HISTORY:JACQUIE-EN-Y GASTRIC BYPASS, PRE-EXAM PHYSICAL:PERFORMED APR 02, 2006 ENTIRE PHYSICAL EXAM WAS NORMAL. EXAM INFO:MAXIMUM DEPTH OF INSERTION JEJUNUM, INTENDED JEJUNUM. PATIENT POSITION: ON LEFT SIDE. DURATION OF EXAM: 10 MINUTES. VOCAL CORDS VISUALIZED. GASTRIC RETROFLEXION PERFORMED. IMAGES TAKEN. ASA CLASSIFICATION: II. TOLERANCE: EXCELLENT. SEDATION MEDS:PATIENT ASSESSED AND FOUND TO BE APPROPRIATE FOR MODERATE (CONSCIOUS) SEDATION. THE PATIENT WAS NOT INTUBATED. FENTANYL 100 MCG. GIVEN IV. MIDAZOLAM 5 MG. GIVEN IV. MONITORING:BP AND PULSE MONITORING DONE. OXIMETRY USED. FLUOROSCOPY:FLUOROSCOPY WAS NOT USED. INSTRUMENT(S):GIF 140. - NORMAL: DISTAL ESOPHAGUS. COMMENTS: NORMAL SC JUNCTION AT 41 CM. - PRIOR SURGERY: COMMENTS: JACQUIE-EN-Y ANATOMY. NORMAL APPEARING ANASTOMOSIS, WITHOUT ULCERATION. - NORMAL: DUODENAL 2ND PORTION TO JEJUNUM. BIOPSY/NORMAL TAKEN. PATH # 1. COMMENTS: THE JEJUNUM WAS NORMAL. BX TAKEN TO R/O SPRUE. ABNORMAL EXAMINATION, SEE FINDINGS ABOVE. COMMENTS:1. JACQUIE-EN-Y ANATOMY. NORMAL APPEARING MUCOSA ABOVE. NO ULCERATION. THE ANASTOMOSIS IS WIDELY PATENT AND NO ULCERATION WAS SEEN. BX TAKEN TO R/O SPRUE. UNPLANNED INTERVENTION:NO UNPLANNED INTERVENTIONS WERE REQUIRED. UNPLANNED EVENTS:THERE WERE NO COMPLICATIONS. MEDICATION(S):AWAIT PATHOLOGY. COMMENTS:COLONOSCOPY TO FOLLOW. DISPOSITION:AFTER PROCEDURE PATIENT SENT TO SHORT STAY UNIT. AFTER RECOVERY PATIENT SENT HOME. PATHOLOGY:BIOPSY/NORMAL: JEJUNUM. PATH # 1. REPORT ENTERED BY: NIYA RODRIGUEZ MD documented in this encounter Plan of [...]
--- OUTSIDE RECORDS SUMMARY | ~2020-02-29 | XMS | Encounter Summary ---
Demographics + + + | Address | [address] | | | [place] [address] | + + + | Home Phone [...] Team Providers + +------+ + | Care Multifocal Button Grinder Name | Role | Phone | [...] [place] | | | | | | [place], [place] | [facility] | | | | | | [address] | [address] | | | | | | | [place], [place] | | | | | | | [address] | | | | | | | Phone: | | | | | | | [phone] | | | | | | | Fax: | | | | | | | [phone] | +--------+--------+ + + + + Encounter Details +--------+---------+ + + + | Date | Type | Department | Care Team | Description | +--------+---------+ + + + | 06/23/ | Office | [facility] Comprehensive | Adrien Smith, | Fibromyalgia | | 2013 | Visit | Pain Center at | [address] [facility] | syndrome 729.1 | | | | [facility] | [facility] [id number] | (Primary Dx); LBP | | | | [address] | [place], [place] | (low back pain); | | | | [facility] | [address] | Chronic Bilateral | | | | and Healing, | [phone] | Shoulder Pain; Post | | | | | | laminectomy | | | | Floor [place], [place] | | syndrome; Chronic | | | | [address] | | migraine | | | | [phone] | | | +--------+---------+ + + + [...] PM PSTThis is a copy of the nicholas ft of my suggestions to your doctors. Ms. Meehan meets the ACR criteria for fibromyalgia. As part of the initial evaluation of a patient with fibromyalgia, the [facility] Fibromyalgia clinic suggests laboratory screening to i [...] suggests that fibromyalgia patients may have reduced MILK WAGON DRIVER opioid receptors (Reji is RE, et al. Decreased central mu-opioid receptor availability in fibromyalgia. J Neurosci . 27(37):04377-2, 2006Feb 24.) and there are no controlled [...] and evaluated the patient with Fellow Buzz velasquez. Brandon Cochran MD, who conducted the initial history. I reviewed the history in detail and edited his note. I was present for the examination and formulation portions of the enco unter. I agree with the findings and the plan of care as documented in our notes. ADRIEN SMITH MD Didactic Instructor, [facility] Video Software Engineer, Pain Medicine Professor, Anesthesiology & Perioperative Medicine Desire Woodson Brandon - 06/23/2013 2:21 PM PST [facility] Return Visit with Dr. Adrien [...] and fibromyalgia. She would like to avoid fur er back surgery. Her prior primary care [...] before her lumbar surgeries and recently in [place]. She has short-term relief from thes e treatments. I would like her to return to see Dr. Adrien Smith to discuss these treatment options. Consult to [facility] physical therapy: A supervised physical therapy [...] has been treated at the [facility] for back pain with the following problem [...] Overview Note: Surgery 05/15/08 Dr Ricky Garnett [place] JEY karlos to get operative reports Osteopenia [...] a pain drawing which I reviewed. [facility] Brief Pain Inventory: (ten= worst possible [...] knee Lumbar fusion 05/2008, '11 & '12 L5-A9twaanz with bone spur removals Appendectomy Cholecystectomy section [...] Hives Mainly in the legs Clindamycin Codeine Gtsgbxz-Kamqistrbv-Vay-Caff Balance problems Fioricet W/Codeine (Emamvinbre-Wyrigdyhro-Cqt-Cod) Keflex (Cephalexin) Morphine IM ( only in [facility]) made gut pain worse 08/27/06: Trial of oral MSIR caused leg swelling Penicillins Sulfa (Sulfonamide Antibiotics) Tramadol Ms. Meehan reports no side effects. The Review of Systems provided by Ms. Meehan and documented by the FLAKER OPERATOR was reviewed. Austyn shelton comments: 1. BONES, JOINTS AND MUSCLES atrophy, [...] evaluation of a patient with fibromyalgia, the [facility] Fibromyalgia clinic suggests laboratory screening to i [...] suggests that fibromyalgia patients may have reduced MILK WAGON DRIVER opioid receptors (Xavi FRANK, et al. Decreased central mu-opioid receptor availability in fib romyalgia. J Neurosci. 27(37):77503-3, 2006Feb 24.) and there are no controlled [...] 3 - 7 days. Belinda Meehan was provi ded written instructions, we had a detailed PARQ discussion regarding this medication and it s side effects, and she was instructed to call with any problems. 4. Follow-up PRN as needed with Rosi COCHRAN MD,PhD [facility] Maris Juárez MA - 06/23/2013 1:18 PM PSTCMA History: [...] increased appetite documented in this e ncounter Procedure Notes Edwige Faculty - 08/04/2013 8:00 AM PSTAssociated Order(s): RADIOLOGY documented in this encounter Miscellaneous Notes Scan - Edwige, Faculty - 06/30/2013 3:59 PM PSTElectronically signed by Faculty Other at 3:59 PM PSTdocumented in this encounter Plan of [...]
--- OUTSIDE RECORDS SUMMARY | ~2020-02-29 | XMS | Encounter Summary ---
Demographics + + + | Address | [address] | | | [place] [address] | + + + | Home Phone [...] Team Providers + +------+ + | Care Pipeline Construction Inspector Name | Role | Phone | [...] + + | 08/04/ | Refill | [facility] | Alanis, | Medication Refill | | 2017 | | MEDICINE [address] | MD Petrona | | | | | [place], | [address] [facility] | | | | | [place] [address] | [place] [address] | | | | | [phone] | [phone] | | | | | | | [...] | | | | | [place] [address] | | | | | | [phone] | | | | | | | | +--------+---------+ + + + documented as of this encounter Visit Diagnoses Not on filedocumented in this encounter"
--- OUTSIDE RECORDS SUMMARY | ~2020-02-29 | XMS | Encounter Summary ---
Demographics + + + | Address | [address] | | | [place] [address] | + + + | Home Phone [...] Providers + +------+ + | Care Water Meter Installer Name | Role | Phone | + +------+ + | Pedrito Gutierrez MD | PCP | | + +------+ + Reason for Visit + +--------+ + | Reason | Onset | Comments | | | Date | | + +--------+ + | Medication Question | 02/18/ | | | | 2007 | | [...] | | | [facility] | [place], [place] | | | | | [address] | [address] | | | | | [address] | [phone] | | | | | [facility] | | | | | | Physician's | | | | | | [facility] | | | | | | [place] [address] | | | | | | [phone] | | | +--------+ + + + [...] this encounter Miscellaneous Notes Telephone Encounter - Mini Maciel - 02/02/2008 3:05 PM PDTReferred pt back to her pcp to place the referral. e lephone Encounter - Mini Maciel - 02/02/2008 3:04 PM PDT Staff Message copied by MINI MACIEL on ThuFeb 02, 2008 3:04 PM ------ Message from: MAYA MOHAMUD Created: [facility] Jan 27, 2008 2:07 PM Mary Mini Patient came by to see if Dr Meeks would send her an referral to the Neurology Department. If any questions please call patient at home [phone] Thanks Maya documented in this enco unter Plan of Treatment Not on filedocumented as of this encounter Visit Diagnoses Not on filedocumented in this encounter"
--- OUTSIDE RECORDS SUMMARY | ~2020-02-29 | XMS | Encounter Summary ---
Demographics + + + | Address | [address] | | | [place] [address] | + + + | Home Phone [...] Providers + +------+ + | Care Hydro Generation Manager Name | Role | Phone [...] [address] | | | | | [place], [place] | [place], [place] | | | | | [address] | [address] | | | | | [phone] | [phone] | | | | | | | [...]
--- OUTSIDE RECORDS SUMMARY | ~2020-02-29 | XMS | Encounter Summary ---
Demographics + + + | Address | [address] | | | [place] [address] | + + + | Home Phone [...] Providers + +------+ + | Care Switch House Operator Name | Role | Phone | + +------+ + | Petrona Thapa | PCP | | | MD | | | + +------+ + Reason for Visit + +--------+ + | Reason | Onset | Comments | | | Date | | + +--------+ + | Referral | 03/04/ | | | | 2016 | | + +--------+ + | Medication Refill | 03/04/ | | | | 2016 | | + +--------+ + Encounter Details +--------+ + + + + | Date | Type | Department | Care Team | Description | +--------+ + + + + | 03/04/ | Telephone | [facility] | Alanis, | Referral; Medication | | 2016 | | MEDICINE [address] | MD Petrona | Refill | | | | [place], | [address] | | | | | [place] [address] | [place] [address] | | | | | [phone] | [phone] | | | | | | | [...] Telephone Encounter - Maggie Montoya LPN - 03/05/2017 4:11 PM PDTSpoke to patient and inst ructed her that we have not received an authorization yet from her insurance. I had advised her that you had given her medication at her last visit. She is still requesting [place] to he lp her pain. I told her I would send a message. elephone Encounter - Tuan Snider - 03/05/2017 3:[address]/Caller: [facility] Contact Number: [phone] Provider/Nurse: Emmy Reason for Call: Taniya calling in regarding pt stated they have received numerous calls fro m patient to schedule an appointment with them. Taniya is stating they have not received refe rral and if it could be sent to their main fax [phone]. Also Taniya wanted to add that they will not prescribed any medications on the first visits. FYI. Last Appointment: 02/23/17 Next Appointment: 04/27/17 elephone Encounter - Alan Pardo - 03/05/2017 2:28 PM PDTPatient is calling stating that they also nee d a referral to the pain clinic as they won't schedule the patient till they have a referral . elephone Karine stevenson - Maggie Montoya LPN - 03/04/2017 1:49 PM PDTReceived call from patient requesting rx for Hydrocodone for pain relief until she can get into the pain clinic. documented in this encounter Plan of Treatment +--------+---------+ + + + | Date | Type | Specialty | Care Team | Description | +--------+---------+ + + + | 05/17/ | Office | Internal Medicine | Emmy-Kamlesh, | | | 2019 | Visit | | MD Petrona | | | | | | [address] [facility] [place] | | | | | | [place] [address] | | | | | | [phone] | | | | | | | | +--------+---------+ + + + documented as of this encounter Visit Diagnoses Not on filedocumented in this encounter"
--- OUTSIDE RECORDS SUMMARY | ~2020-02-29 | XMS | Encounter Summary ---
Demographics + + + | Address | [address] | | | [place] [address] | + + + | Home Phone [...] +------+ + | Care Social Media Marketing Manager Name | Role | Phone | + +------+ + | Petrona Thapa | PCP | | | MD | | | + +------+ + Reason for Visit + +--------+ + | Reason | Onset | Comments | | | Date | | + +--------+ + | Medication Refill | 08/12/ | | | | 2017 | | + +--------+ + Encounter Details +--------+--------+ + + + | Date | Type | Department | Care Team | Description | +--------+--------+ + + + | 08/12/ | Refill | [facility] | Alanis, | Medication Refill | | 2017 | | [facility] [address] | MD Petrona | | | | | [place], | [address] [place] | | | | | [place] [address] | [place] [address] | | | | | [phone] | [phone] | | | | | | | [...] | | | | | [place] [address] | | | | | | [phone] | | | | | | | | +--------+---------+ + + + documented as of this encounter Visit Diagnoses Not on filedocumented in this encounter"
--- OUTSIDE RECORDS SUMMARY | ~2020-02-29 | XMS | Encounter Summary ---
Demographics + + + | Address | [address] | | | [place] [address] | + + + | Home Phone [...] Team Providers + +------+ + | Care Aquarist Name | Role | Phone | + [...] + | 05/03/ | Telephone | [facility] | Alanis, | Medication Prior | | 2017 | | MEDICINE [address] | MD Petrona | Authorization | | | | [place], | [address] [place] | (Sumatriptan) | | | | [place] [address] | [place] [address] | | | | | [phone] | [phone] | | | | | | | [...] 05/03/2018 12:24 PM PSTReceived prior auth request [facility] Sumatript[address]. No PA is needed on medication, pharmacy already notified. Please see referral#[id number] on details if needed. Closed encounter today. documented in this encounter Plan of Treatment +--------+---------+ + + + | Date | Type | Specialty | Care Team | Description | +--------+---------+ + + + | 05/17/ | Office | Internal Medicine | Alanis, | | | 2019 | Visit | | MD Petrona | | | | | | [address] [place] [address] [place] | | | | | | [place] [address] | | | | | | [phone] | | | | | | | | +--------+---------+ + + + documented as of this encounter Visit Diagnoses Not on filedocumented in this encounter"
--- OUTSIDE RECORDS SUMMARY | ~2020-02-29 | XMS | Encounter Summary ---
Demographics + + + | Address | [address] | | | [place] [address] | + + + | Home Phone [...] Providers + +------+ + | Care Adult Basic Education Teacher Name | Role | Phone | + +------+ + | Petrona Thapa | PCP | | | MD | | | + +------+ + Reason for Visit + +--------+ + | Reason | Onset | Comments | | | Date | | + +--------+ + | Personal Problem | 08/03/ | Rash in private area | | | 2018 | | + +--------+ + Encounter Details +--------+ + + + + | Date | Type | Department | Care Team | Description | +--------+ + + + + | 08/03/ | Telephone | [facility] | Alanis, | Personal Problem | | 2018 | | MEDICINE [address] | MD Petrona | (Rash in private | | | | [address] [place], | [address] [facility] | area) | | | | [place] [address] | [place] [address] | | | | | [phone] | [phone] | | | | | | | [...] Telephone Encounter - Maggie Montoya LPN - 08/03/2018 4:04 PM PSTSpoke to patient states t hat a painful burning rash noted in the groin area, applied antifungal powder and seems to b e getting better at this time. Per MD may continue to use as directed, but if any worsening symptoms will need to seek medical attention. Patient understands and accepts elephone Encounter - Sia Bai - 08/03/2018 3:27 PM PSTPatient called back would like to speak to nurse about a rash in her private area that is very painful states she put powder on it but that's not working . Shania ent can be reached at [phone] signed by Sia Bai at 08/03/2018 3:30 PM PSTTelephone Encounter - Hans Elenaica - 08/03/2018 12:37 PM PSTPatient called asking to speak to the nurse regarding her health problems, when asked for further information states "I don't want to get into it right now" please advise. documented in this encounter Plan [...] | | | | | [place] [address] | | | | | | [phone] | | | | | | | | +--------+---------+ + + + documented as of this encounter Visit Diagnoses Not on filedocumented in this encounter
--- OUTSIDE RECORDS SUMMARY | ~2020-02-29 | XMS | Encounter Summary ---
Demographics + + + | Address | [address] | | | [place] [address] | + + + | Home Phone [...] Team Providers + +------+ + | Care Retanned Leather Roller Name | Role | Phone | [...] Medication Refill | | 2018 | | [facility] [address] | MD Petrona | | | | | [place], | [address] [place] | | | | | [place] [address] | [place] [address] | | | | | [phone] | [phone] | | | | | | | [...] 05/17/ | Office | Internal Medicine | EmmyCarmen, | | | 2019 | Visit | | MD Petrona | | | | | | [address] [facility] [place] | | | | | | [place] [address] | | | | | | [phone] | | | | | | | | +--------+---------+ + + + documented as of this encounter Visit Diagnoses + + | Diagnosis | + + | Chronic bilateral low back pain without sciatica | + + documented in this encounter"
--- OUTSIDE RECORDS SUMMARY | ~2020-02-29 | XMS | Encounter Summary ---
Demographics + + + | Address | [address] | | | [place] [address] | + + + | Home Phone [...] Providers + +------+ + | Care Superintendent House Name | Role | Phone | [...] Refill | | 2017 | | [facility] [address] | MD Petrona | | | | | [place], | [address] [place] | | | | | [place] [address] | [place] [address] | | | | | [phone] | | | | | | | [...] | | | | | [place] [address] | | | | | | [phone] | | | | | | | | +--------+---------+ + + + documented as of this encounter Visit Diagnoses Not on filedocumented in this encounter"
--- OUTSIDE RECORDS SUMMARY | ~2020-02-29 | XMS | Encounter Summary ---
Demographics + + + | Address | [address] | | | [place] [address] | + + + | Home Phone [...] + +------+ + | Care Customer Sales Consultant Name | Role | Phone | + +------+ + | Pedrito Gutierrez MD | PCP | | + +------+ + Reason for Visit + +--------+ + | Reason | Onset | Comments | | | Date | | + +--------+ + | Letter From | 11/10/ | | | Specialist | 2009 | [...] | | | [facility] | [place], [place] | | | | | [address] | [address] | | | | | [address] | [phone] | | | | | Physician's | | | | | | Pavilion, [address] [place] [address] | | | | | | [place], [place] | | | | | | [address] | | | | | | [phone] | | | +--------+ + + + [...] Notes Telephone Encounter - Nuris Lopez - 11/13/2008 10:56 AM PDTI let her know.Electronically s igned by Nuris Lopez at 11/13/2008 10:56 AM PDTTelephone Encounter - Beto Meeks MD - 11/11 1:05 AM PDTThe letter of necessity most likely needs to come from her PCP. Veto lentz signed by Beto Meeks MD at 11/11/2008 1:05 AM PDTTelephone Encounter - Yvette Barton - 11/10/2008 12:14 PM PDTPatient called today to say that her transportation will no long er be covered by her insurance. She is going to need a letter of necessity to see you since there are no Endocrinologists close to her home. You can send this to her home address.Shakir yo signed by Ami Barton at 11/10/2008 12:14 PM PDTdocumented in this encounter Plan of Treatment Not on filedocumented as of this encounter Visit Diagnoses Not on filedocumented in this encounter"
--- OUTSIDE RECORDS SUMMARY | ~2020-02-29 | XMS | Encounter Summary ---
Demographics + + + | Address | [address] | | | [place] [address] | + + + | Home Phone [...] Providers + +------+ + | Care Scanning Tech Name | Role | Phone | [...] ANP | | | | | [facility] | | | | | | [address] | | | | | | Center for Health | | | | | | and Healing, | | | | | | Building ,[address] | | | | | | Floor [place], [place] | | | | | | [address] | | | | | | [phone] | | | +--------+ + + + [...] | Results for this | | WO NBA | e | | | procedure are [...]
--- OUTSIDE RECORDS SUMMARY | ~2020-02-29 | XMS | Encounter Summary ---
Demographics + + + | Address | [address] | | | [place] [address] [...] Providers + +------+ + | Care Mat Weaver Name | Role | Phone | [...] | | Osteoporosis | i, | [address] [place] | | | | | , | [place] | Cece Zhao, | | | | | unspecified | , [place] [address] | [place] [address] | | | | | osteoporosis | [address] | Phone: | | | | | type, | [place], | [phone] | | | | | unspecified | [place] | Fax: | | | | | pathological | [address] | [phone] | | | | | fracture | Phone: | | | | | | presence | [phone] | | | | | | Procedures | Fax: | | | | | | [place] | [phone] | | | | | | ZOLEDRONIC | | | | | | | ACID 1MG | | | +--------+ + + + + + Encounter Details +--------+ + + + + | Date | Type | Department | Care Team | Description | +--------+ + + + + | 07/20/ | Orders Only | [facility] | [place], | Osteoporosis, | | 2017 | | MEDICINE [address] | MD [place] | unspecified | | | | [address] [place], | [address] [facility] | osteoporosis type, | | | | [place] [address] | [place] [address] | unspecified | | | | [phone] | [phone] | pathological | | | | | [...] | | | | | [place] [address] | | | | | | [phone] | | | | | | | [...]
--- OUTSIDE RECORDS SUMMARY | ~2020-02-29 | XMS | Encounter Summary ---
Demographics + + + | Address | [address] | | | [place] [address] | + + + | Home Phone [...] Team Providers + +------+ + | Care Carbonating Stone Cleaner Name | Role | Phone | [...] [address] | | | | | | [place], [place] | | | | | | [address] | | | +--------+ + + + [...]
--- OUTSIDE RECORDS SUMMARY | ~2020-02-29 | XMS | Encounter Summary ---
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 Epidural steroid injections are awhile call to schedule with Dr. Kylah SHEEHAN. documented in this encounter Progress Notes Delfina Molina - 06/28/2007 8:56 AM PSTFormatting of this note might be different from lesli gomez. 06/28/2007 Belinda Meehan is a 47 y.o. female [facility] Return Visit [...] be in bed so long. Son primary insurance healthcare consultant. Current outpatient medications Medication Sig Dispense [...] Collection Time Resulting Agency 05/25/2007 4:06 PM [facility] DEPARTMENT OF RADIOLOGY Component Results [...] today 5. Schedule physical therapy [place] Nathalia rAora once she has finished with her knee rehabi litaion [ estimated in two weeks]. 6. Epidural steroid injections are an option of care for her lumbar radicular pain. 7. Schedule follow up in 4-6 weeks or sooner if needed - The pateint was asked to call the clinic with any concerns or questions. [facility] Mail code CH 4P [place] [address] [place] [address] Ailyn Bello - 06/28/19 08 8:38 [...]
--- OUTSIDE RECORDS SUMMARY | ~2020-02-29 | XMS | Encounter Summary ---
Demographics + + + | Address | [address] | | | [place] [address] | + + + | Home Phone [...] Providers + +------+ + | Care Aircraft Technician Name | Role | Phone | [...] pneumonia, | | | | Avjennifer Mailcode: [facility] | [address] | wants to get back on | | | | [facility] | [place], [place] | vitamins) | | | | and Healing, | [address] | | | | | [place] [address] [facility] | [phone] | | | | | Floor [place], [place] | | | | | | [address] | | | | | | [phone] | | | +--------+ + + + [...] Notes Telephone Encounter - Kenisha Melton - 07/27/2006 5:42 PM PSTPt. will call Dr. Gutierrez, PCP, who took her off all her vitamins a couple of months ago, as he thought this was contr ibuting to her abdominal pain. History of gastric bypass. Pt. will call him tomorrow and inquire about resumption of her vitamins.Electronically signed by Kenisha Melton at 2006 5:42 PM PSTTelephone Encounter - Ju Ivey - 07/27/2006 9:37 AM PSTRescheduled her 07/30 appt with Macarena, doctor is out. Scheduled for next available 08/13, but wants to get back on her vitamins right away. Patient states it is ok to leave confidential message o n patient's answering machine. documented in this encoun ter Plan of Treatment Not on filedocumented as of this encounter Visit Diagnoses Not on filedocumented in this encounter"
--- OUTSIDE RECORDS SUMMARY | ~2020-02-29 | XMS | Encounter Summary ---
Demographics + + + | Address | [address] | | | [place] [address] | + + + | Home Phone [...] Providers + +------+ + | Care Instructor Of Education Name | Role | Phone [...] | and counseling | | | | [facility] | [place], [place] | | | | | and Healing, | [address] | | | | | [place] [address], [facility] | [phone] | | | | | [place], [place] | | | | | | [address] | | | | | | [phone] | | | +--------+ + + + [...] below regarding B12. elephone Encounter - Precious Tran - 4:44 PM PSTPt called today regarding [...]
--- OUTSIDE RECORDS SUMMARY | ~2020-02-29 | XMS | Encounter Summary ---
Demographics + + + | Address | [address] | | | [place] [address] | + + + | Home Phone [...] Team Providers + +------+ + | Care Communications Media Professor Name | Role | Phone | + +------+ + | Pedrito Gutierrez MD | PCP | | + +------+ + Reason for Visit + +--------+ + | Reason | Onset | Comments | | | Date | | + +--------+ + | Refill Request | 04/02/ | | | | 2008 | | [...] | | | [facility] | [place], [place] | | | | | [address] | [address] | | | | | [address] | [phone] | | | | | Physician's | | | | | | Pavilion, 1st floor | | | | | | [place], [place] | | | | | | [address] | | | | | | [phone] | | | +--------+--------+ + + + [...] Notes Telephone Encounter - Juana Doshi - 04/02/2009 11:14 AM PDTLast Office Visit in [facility] was on 07/25/08 at 1:20 pm with Beto Meeks MD. No future appt scheduled. Refill approved per protocol. documented in this encounte r Plan of Treatment Not on filedocumented as of this encounter Visit Diagnoses Not on filedocumented in this encounter"
--- OUTSIDE RECORDS SUMMARY | ~2020-02-29 | XMS | Encounter Summary ---
Demographics + + + | Address | [address] | | | [place] [address] | + + + | Home Phone [...] Providers + +------+ + | Care Melter Supervisor Open Hearth Furnace Name | Role | Phone | + +------+ + | Pedrito Gutierrez MD | PCP | | + +------+ + Encounter Details +--------+ + + + + | Date | Type | Department | Care Team | Description | +--------+ + + + + | 01/14/ | Telephone | [facility] | Chris Padgett, | | | 2009 | | [place] [address] | [address] [facility] | | | | | [place] Mailcode: CH4S | [facility] | | | | | Center for Health | [place], [place] | | | | | and Healing, | [address] | | | | | [facility] | [phone] | | | | | Floor [place], [place] | | | | | | [address] | | | | | | [phone] | | | +--------+ + + + [...] Notes Telephone Encounter - Ivy Colon - 01/16/2010 3:49 PM PDTReviewed labs with Belinda, labs normal except for protein a little bit low. We discussed her protein intake which she f eels is good, but is not able to quantify. It has been several years since she has seen a tony hernandezan and she is comfortable with seeing RD again to review her food choices and make sure she is still doing well. She will schedule the follow-up RD appointment with Clarence. elephone Encounter - Adriana Israel - 01/14/2010 2: 57 PM PDTBelinda is calling to request a call to review labs that we should receive today or tomorrow from [facility]. Advised caller that they may not receive a call back from nurse or provider until the next business day. Caller understands and is agreeable to this. documented in this encou nter Plan of Treatment Not on filedocumented as of this encounter Visit Diagnoses Not on filedocumented in this encounter"
--- OUTSIDE RECORDS SUMMARY | ~2020-02-29 | XMS | Encounter Summary ---
Demographics + + + | Address | [address] | | | [place] [address] | + + + | Home Phone [...] Providers + +------+ + | Care Director Career Services Name | Role | Phone | [...] | | | | | [address] [facility] [facility] | | | | | | [address] [place] | | | | | | [address] | | | | | | [phone] | | | +--------+ + + + [...] Petrona | | | | | | [address] [place] [address] [address] | | | | | | [place] [address] | | | | | | [phone] | | | | | | | | +--------+---------+ + + + documented as of this encounter Visit Diagnoses Not on filedocumented in this encounter"
--- OUTSIDE RECORDS SUMMARY | ~2020-02-29 | XMS | Encounter Summary ---
Demographics + + + | Address | [address] | | | [place] [address] | + + + | Home Phone [...] Providers + +------+ + | Care Hardware Designer Name | Role | Phone | [...] + + | 11/23/ | Telephone | [facility] | Luther Brito MD | Other | | 2017 | | GASTROENTEROLOGY | [address] [facility] | | | | | [address] [facility] | [place], [place] | | | | | [address] [place], [place] | [address] | | | | | [address] | [phone] | | | | | [phone] | | | +--------+ + + + [...] thus far to submit stool samples; sh e is having 2-3 loose soft stools daily [...] 1:00 PM PDTName of Caller : Belinda Meehan Name of Patient: Belinda Barnes Shefali Reason for call: Pt has questions regarding her colonoscopy and egd - on 12/18/17. Pt can not do her stool samples. Pt is having difficulties and wants to know if it will interfere w ith her procedure on 12/18/17. Provider/Nurse: Dr. Brito / [place] Call back number: [phone] documented in this encou nter Plan of [...] | | | | | [place] [address] | | | | | | [phone] | | | | | | | | +--------+---------+ + + + documented as of this encounter Visit Diagnoses Not on filedocumented in this encounter"
--- OUTSIDE RECORDS SUMMARY | ~2020-02-29 | XMS | Encounter Summary ---
Demographics + + + | Address | [address] | | | [place] [address] | + + + | Home Phone [...] Providers + +------+ + | Care Relocation Associate Name | Role | Phone | [...] 2007 | Only | [address] | [phone] | | | | | Rd Mailcode: RPB07 | | | | | | [place], [place] | | | | | | [address] | | | | | | [phone] | | | +--------+ + + + [...] DEPARTMENT OF | [address] | [place] [address] | | | PATHOLOGY | [address] | | | + + + + + | [facility] | [address] | [place] [address] | | | PATHOLOGY | [address] | | | + + + + + documented in this encounter Visit Diagnoses Not on filedocumented in this encounter"
--- OUTSIDE RECORDS SUMMARY | ~2020-02-29 | XMS | Encounter Summary ---
Demographics + + + | Address | [address] | | | [place] [address] | + + + | Home Phone [...] Providers + +------+ + | Care Digital Communications Manager Name | Role | Phone [...] | | | | Clinical Nutrition | [place], [place] | | | | | [address] | [address] | | | | | Loop Mailcode: OPC5 | [phone] | | | | | Outpatient Clinic | | | | | | [facility] | | | | | | [place] [address] | | | | | | [phone] | | | +--------+ + + + [...] | | | SERUM | performed by [facility] | | | | [...] [facility] | [address] | [place], [place] | | | UN[facility] | | [address] | | + + + + + [...] + + + | [facility] | [address] | [place] [address] | | | LABORATORY | | | [...] + + + + + | [facility] DEPARTMENT OF | [address] | [place] [address] | | | PATHOLOGY | [address] | | | + + + + + | [facility] OF | [address] | [place] [address] | | | PATHOLOGY | [address] [...] DEPARTMENT OF | [address] | [place] [address] | | | PATHOLOGY | [address] | | | + + + + + | [facility] DEPARTMENT | [address] | [place] [address] | | | PATHOLOGY | [address] | | | + + + + + AMYLASE, PLASMA (01/11/2002 3:50 PM PDT) + +--------+ + + + | Component | Value | Ref Range | Performed | Pathologist | | | | | At | Signature | + +--------+ + + + | AMYLASE,MARIZA | 34 (L) | 36 - 128 U/L | [facility] | | | SMA | | | [...] + + + + + | [facility] DEPARTMENT OF | [address] | [place] [address] | | | PATHOLOGY | [address] | | | + + + + + | [facility] DEPARTMENT OF | [address] | [place] [address] | | | PATHOLOGY | [address] [...] + + + + + | [facility] DEPARTMENT OF | [address] | [place] [address] | | | PATHOLOGY | [address] | | | + + + + + | [facility] DEPARTMENT OF | [address] | [place] [address] | | | PATHOLOGY | [address] | | | + + + + + documented in this encounter Visit Diagnoses Not on filedocumented in this encounter"
--- OUTSIDE RECORDS SUMMARY | ~2020-02-29 | XMS | Encounter Summary ---
Demographics + + + | Address | [address] | | | [place] [address] | + + + | Home Phone [...] | | [address] | [place] [address] | | | | | | [address] | Phone: | | | | | | [place], | [phone] | | | | | | [place] | Fax: | | | | | | [address] | [phone] | | | | | | Phone: | | | | | | | [phone] | | | | | | | Fax: | | | | | | | [phone] | | +--------+ + + + + + Encounter Details +--------+---------+ + + + | Date | Type | Department | Care Team | Description | +--------+---------+ + + + | 10/18/ | [facility] | [facility] | Alanis, | Obesity (BMI | | 2019 | Visit | GASTROENTEROLOGY | MD Petrona | 30.0-34.9) (Primary | | | | [address] [place] | [address] [place] | Dx); Nausea; Dumping | | | | [address] | [place] [address] | syndrome; 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); | | | | [phone] | | Gastroesophageal | | | | | Luther Brito MD | reflux disease, | | | | | [address] | esophagitis presence | | | | | [place] | not specified | | | | | [address] | | | | | | [phone] | | | | | | | [...] (gastroesophageal reflux disease) Glaucoma Hyperparathyroidism ([facility]) Hypothyroidism IBS (irritable bowel syndrome) Idiopathic scoliosis Leg edema Low back pain Lumbar postlaminectomy syndrome Lumbar radiculopathy primarily right 01/04/2015 Meniere syndrome Migraine with aura Migraines Muscle cramping Muscle spasm Myalgia Nausea Nonalcoholic hepatosteatosis Obesity Opioid dependence (HCC) Orthostatic hypotension OLIVER (obstructive sleep apnea) Osteoarthritis, generalized Osteopenia Osteoporosis Palpitations Peripheral neuropathy Rheumatoid arthritis ([facility]) Right arm pain 01/04/2015 RLS (restless legs syndrome) S/P lumbar fusion 01/04/2015 Scoliosis Sleep apnea Spondylosis with myelopathy, lumbar region Stroke ([facility]) Syncope Tremor Type II or unspecified type [...] Location: [facility] Family History: Family [...] Hives,Itching,Rash Butalbital Not Noted Ropinirole Not Noted Kyyvwlzxxg-Vlao-Hbnzjlrc Hives,Rash Cephalexin Hives Ciprofloxacin Hives,Rash Clarithromycin Hives,Rash [...] liz ls. I recommend referral to a narrow fabrics weaver for further assistance with dumping syndrome. I [...] | | | | | | [address] [facility] | | | | | | [place] [address] | | | | | | [phone] | | | | | | | [...]
--- OUTSIDE RECORDS SUMMARY | ~2020-02-29 | XMS | Encounter Summary ---
Demographics + + + | Address | [address] | | | [place] [address] | + + + | Home Phone [...] Providers + +------+ + | Care Family Medicine Physician Name | Role | Phone | + +------+ + | Petrona Thapa | PCP | | | MD | | | + +------+ + Reason for Visit + +--------+ + | Reason | Onset | Comments | | | Date | | + +--------+ + | Medication Follow-up | 08/23/ | Prior Authorization needed | | | 2018 | | + +--------+ + Encounter Details +--------+ + + + + | Date | Type | Department | Care Team | Description | +--------+ + + + + | 08/23/ | Telephone | [facility] | Alanis, | Medication Follow-up | | 2018 | | MEDICINE [address] | MD Petrona | (Prior | | | | [address] [place], | [address] [place] | Authorization | | | | [place] [address] | [place] [address] | needed) | | | | [phone] | [phone] | | | | | | | [...] Notes Telephone Encounter - Mayda Montoya - 01/05/2019 4:03 PM PDTCalled Tayo Mcdonough in [place] a nd spoke to Lester, he verified that patient has been getting the medication in November and also in October with no PA being required on medication. Closed encounter today due to no PA being r equired. elephone Encounter - Shalonda Mcdermott Malissa - 08/23/2018 1:57 PM PDTBrenevin stated she has refills on her Imitrex medi cation but they wont fill it until she gets a Prior authorization completed through her ins urance (medicare and [place] medicaid). Please advise documented in this encounter Plan [...] | | | | | [place] [address] | | | | | | [phone] | | | | | | | | +--------+---------+ + + + documented as of this encounter Visit Diagnoses Not on filedocumented in this encounter"
--- OUTSIDE RECORDS SUMMARY | ~2020-02-29 | XMS | Encounter Summary ---
Demographics + + + | Address | [address] | | | [place] [address] | + + + | Home Phone [...] Providers + +------+ + | Care Optical Fabrication Technician Name | Role | Phone | [...] of this encounter Progress Notes Interface, Strategic Communications Specialist In - 01/12/2005 10:09 AM PDT [id number] [facility] Date: 12/25/2004 Clinic: GENERAL [...] to [facility] at fax #[phone], first 30 pills, oxycodone 5 mg to [...] the current plan. Melisa Thorne / SHARIF [id number] / [id number] / [id number] / [id number] Electronically signed by Kenisha Melton 01-01-2005 04:41:20 PM documented i n this encounter Plan of Treatment Not on filedocumented as of this encounter Visit Diagnoses Not on filedocumented in this encounter"
--- OUTSIDE RECORDS SUMMARY | ~2020-02-29 | XMS | Encounter Summary ---
Demographics + + + | Address | [address] | | | [place] [address] | + + + | Home Phone [...] + +------+ + | Care Automobile Rental Clerk Name | Role | Phone [...] | | | Metabolism | bypass | [address] | [address] | | | | | Hypovitamino | [address], | Ave | | | | | sis D [address] | [address] | [place], [place] | | | | | nutritional | [place] | [address] | | | | | deficiency | [address] | Phone: | | | | | Other | Phone: | [phone] | | | | | protein-jose manuel | [phone] | Fax: | | | | | nick | Fax: | [phone] | | | | | malnutrition | [phone] | | | | | | Weight | | | | | | | gain | | | | | | | Procedures | | | | | | | CONSULT TO | | | | | | | ENDO | | | | | | | [address] | | | +--------+--------+ + + + [...] | | | [facility] | [place], [place] | (Primary Dx); | | | | [address] | [address] | Metabolic syndrome X | | | | [address] | [phone] | 250.80; Essential | | | | [facility] | | hypertension 401.9; | | | | Physician's | | Unstable balance | | | | Pavilion [place], | | | | | | [place] [address] | | | | | | [phone] | | | +--------+---------+ + + + [...] Hives Mainly in the legs Clindamycin Codeine Jgccduj-Arhjfsouny-Kbh-Caff Balance problems Fioricet W/Codeine (Qlcawngduo-Bvzdhybyeo-Pxf-Cod) Keflex (Cephalexin) Morphine IM ( only in [facility]) made gut pain worse 08/27/06: [...] U/L 41 ANION GAP 8 VITAMIN B12, [id number] pg/ml >2000 (H) HEMOGLOBIN A1C <=5.6 % [...] SERUM 15.0-85.0 pg/ml 222.9 (H) VITAMIN B12, [id number] pg/ml > 2000 HEMOGLOBIN A1C <=5.6 % [...] home vi a a long drive to [place]. She needs further evaluation of her right hip and SLAB DEPILER OPERATOR. This c an be most easily accomplished [...] | + +--------+ + + + | TX COLLECTION | Routin | 08/09/2013 | IGT [...] VERONICA | [address] | [place], [place] | | | [facility] | [address] | [address] | | | TESTS | | | [...] MARQUAM | [address] | [place], [place] | | | [place] [facility] [place] | [address] | [address] | | | TESTS | | | [...]
--- OUTSIDE RECORDS SUMMARY | ~2020-02-29 | XMS | Encounter Summary ---
Demographics + + + | Address | [address] | | | [place] [address] | + + + | Home Phone [...] Providers + +------+ + | Care Title Specialist Name | Role | Phone | [...] + | 12/12/ | Telephone | [facility] | Alanis, | Headache (Adult - | 2019 | | MEDICINE [address] | MD Petrona | Recurrent Or Known | | | | [place], | [address] [place] | Dx Migraines) | | | | [place] [address] | [place] [address] | | | | | [phone] | [phone] | | | | | | | [...] encounter Miscellaneous Notes Telephone Encounter - Maggie oMntoya LPN - 12/13/2019 4:17 PM PDTPatient states worse head ache ongoing now for 2 weeks, not able to keep anything down, visual disturbance. Advised to seek medical attention at the ED in [facility]. Patient states son is with her [...] | | | | | [place] [address] | | | | | | [phone] | | | | | | | | +--------+---------+ + + + documented as of this encounter Visit Diagnoses Not on filedocumented in this encounter"
--- OUTSIDE RECORDS SUMMARY | ~2020-02-29 | XMS | Encounter Summary ---
Demographics + + + | Address | [address] | | | [place] [address] | + + + | Home Phone [...] Team Providers + +------+ + | Care Lawn Maintenance Worker Name | Role | Phone | [...] as of this encounter Progress Notes Interface, Product Development Ecologist In - 08/30/2005 2:07 AM PST [id number] [facility] Date: 08/11/2005 Clinic: Colorectal [...] Rebekah Navas M.D. Chris Padgett M.D. / [id number] / [id number] / [id number] / [id number] E: 08/14/2005 kr cc: Dr. Sarah De Jesus, [place] Electronically signed by Chris Padgett 08-29-2005 03:28:30 PM documented i n this encounter Plan of Treatment Not on filedocumented as of this encounter Visit Diagnoses Not on filedocumented in this encounter"
--- OUTSIDE RECORDS SUMMARY | ~2020-02-29 | XMS | Encounter Summary ---
Demographics + + + | Address | [address] | | | [place] [address] | + + + | Home Phone [...] Team Providers + +------+ + | Care Day Guard Name | Role | Phone | [...] Closed | | Bone | Diagnoses | Aniak Meeks | | | | Densitometry | Osteopenia | MD Beto | Bonedensity | | | | | Procedures | [address] | [facility] [address] | | | | | CONSULT TO | Bethanie | [address] | | | | | BONE | [place], [place] | [address] | | | | | DENSITOMETRY | [address] | Mailcode: | | | | | | Phone: | RODERICK Eduardo | | | | | | [phone] | [place]em [place] | | | | | | Fax: | [place], [place] | | | | | | [phone] | [address] | | | | | | | Phone: | | | | | | | [phone] | | | | | | | Fax: | | | | | | | [phone] | +--------+--------+ + + + + Reason [...] [address] | | | | | [facility] | [place], [place] | | | | | [address] | [address] | | | | | [address] | [phone] | | | | | [facility] | | | | | | Physician's | | | | | | Pavilion [place], | | | | | | [place] [address] | | | | | | [phone] | | | +--------+ + + + [...] has been ordered to be done at [facility] - she can do it on the [...]
--- OUTSIDE RECORDS SUMMARY | ~2020-02-29 | XMS | Encounter Summary ---
Demographics + + + | Address | [address] | | | [place] [address] | + + + | Home Phone [...] Providers + +------+ + | Care Pharmaceutical Sales Representative Name | Role | Phone | + +------+ + | Pedrito Gutierrez MD | PCP | | + +------+ + Reason for Visit + +--------+ + | Reason | Onset | Comments | | | Date | | + +--------+ + | Follow-up visit | 11/23/ | | | | 2007 | | + +--------+ + Consultation (Routine) +--------+--------+ + + + + | Status | Reason | Specialty | Diagnoses / | Referred By | Referred To | | | | | Procedures | Contact | Contact | +--------+--------+ + + + + | Closed | | Pain | Diagnoses | [facility], | [place], | | | | Management | LBP (low | NIHARIKA Jean | Lukasz Rhodes, PhD | | | | | back pain) | [address] | | | | | DJD | [address] | Ave | | | | | (degenerativ | [place], [place] | [place], [place] | | | | | e joint | [address] | [address] | | | | | disease) of | | Phone: | | | | | knee Knee | | [phone] | | | | | pain Major | | Fax: | | | | | depressive | | [phone] | | | | | disorder, | [...] 11/23/ | Office | [facility] at [facility] | Lukasz [place], | Major Depressive | | 2007 | Visit | [address] | PhD [address] | Disorder, Recurrent | | | | Center for Health | [place], [place] | Episode, Moderate | | | | and Healing, | [address] | ([facility]); LBP (Low Back | | | | | [phone] | Pain); Bilateral | | | | Floor [place], [place] | | Knee Pain; | | | | [address] | | Adjustment Disorder | | | | [phone] | | with Anxiety | +--------+---------+ + [...] frustra tion by being less active. Diagnosis: [place] I: 1. (296.32) Major depressive disorder, recurrent, moderate. 2. (309.24) Adjustment disorder with anxiety. 3. (307.89) Chronic pain disorder associated with both psychological factors and a gene ral medical condition. [place] II: Deferred [place] III: abdominal pain, migraine headache, low back pain. [place] IV: low finances [place] V: GAF 55-60 Plan: return with next medical follow-up appointment. Check mood, abdominal pain, relaxat ion, activity, distraction. Continue cognitive/behavioral therapy. Total time spent with patient was approximately 45 minutes. LUKASZ CHARLES PHD [facility] [address] [facility], 4th [place] [address] documented [facility] Plan of Treatment + + +--------+ + + | Name | Type | Priori | Associated Diagnoses | Order Schedule | | | | ty | | | + + +--------+ + + | [facility], | Procedures | Routin | Major Depressive | Ordered: 11/24/2007 | | OFFICE ([id number]) | | e | Disorder, Recurrent | [...]
--- OUTSIDE RECORDS SUMMARY | ~2020-02-29 | XMS | Encounter Summary ---
Demographics + + + | Address | [address] | | | [place] [address] | + + + | Home Phone [...] Providers + +------+ + | Care City Jailer Name | Role | Phone | + +------+ + | Sulaiman Carrera MD | PCP | | + +------+ + Encounter Details +--------+ + + + + | Date | Type | Department | Care Team | Description | +--------+ + + + + | 06/30/ | Telephone | [facility] | Lukasz [place], | | | 2013 | | [address] | PhD [address] | | | | | Center for Health | [place], [place] | | | | | and Healing, | [address] | | | | | [facility] | [phone] | | | | | Floor [place], [place] | | | | | | [address] | | | | | | [phone] | | | +--------+ + + + [...] Medical Center[address] Mail Code: [place] [address] documented in this en counter Plan of Treatment Not on filedocumented as of this encounter Visit Diagnoses Not on filedocumented in this encounter"
--- OUTSIDE RECORDS SUMMARY | ~2020-02-29 | XMS | Encounter Summary ---
Demographics + + + | Address | [address] | | | [place] [address] | + + + | Home Phone [...] Team Providers + +------+ + | Care Pesticide Control Inspector Name | Role | Phone | [...] | | | | Clinical Nutrition | [place], [place] | | | | | [address] | [address] | | | | | Loop Mailcode: OPC5 | [phone] | | | | | Outpatient Clinic | | | | | | [facility] | | | | | | [place] [address] | | | | | | [phone] | | | +--------+ + + + [...] + + + + + | [facility] | [address] | [place] [address] | | | LABORATORY | | | [...] | uIU/ml | | | | | [facility] | | | | | | Laboratories. | | | | + + + + + + + + | Specimen | + + | | + + + + + + + | Performing | Address | City/State/Zipcode | Phone Number | | Organization | | | | + + + + + | [facility] | [address] | [place] [address] | | | LABORATORY | | | [...] DEPARTMENT OF | [address] | [place] [address] | | | PATHOLOGY | [address] | | | + + + + + | [facility] | [address] | [place] [address] | | | PATHOLOGY | [address] | | | + + + + + documented in this encounter Visit Diagnoses Not on filedocumented in this encounter"
--- OUTSIDE RECORDS SUMMARY | ~2020-02-29 | XMS | Encounter Summary ---
Demographics + + + | Address | [address] | | | [place] [address] | + + + | Home Phone [...] Providers + +------+ + | Care Plant Ecologist Name | Role | Phone | [...] floor | | | | | | [place], [place] | | | | | | [address] | | | | | | [phone] | | | +--------+------+ + + + [...] + + + + | [facility] | [facility] | [place] [address] | | | PATHOLOGY | [address] | | | + + + + + | [facility] | [facility] | [place] [address] | | | PATHOLOGY | [address] [...] Performed At | + + + | [id number] Estimated GFR > 60 mL/min/1.73 sq m if non- | [facility] | | Iranian [id number] Estimated GFR > 60 mL/min/1.73 sq m if | DEPARTMENT OF | | Iranian GFR is estimated using the MDRD equation [...] + + + + | [facility] | [address] [facility] | [place] [address] | | | PATHOLOGY | [address] | | | + + + + + | [facility] | [address] [facility] | [place] [address] | | | PATHOLOGY | [address] [...] RLB ([facility]) | | | [facility] [address] | | | [place] [address] | | + + + + + + + + | Performing | Address | City/State/Zipcode | Phone Number | | Organization | | | | + + + + + | [facility] | [address] | [place] [address] | | | LABORATORY | | | [...] RLB ([address] [facility]) | | | [facility] [place] [address] [facility] | | | [place] [address] | | + + + + + + + + | Performing | Address | City/State/Zipcode | Phone Number | | Organization | | | | + + + + + | [facility] | [address] | [place] [address] | | | LABORATORY | | | | + + + + + documented in this encounter Visit Diagnoses + + | Diagnosis | + + | Hypothyroidism Unspecified hypothyroidism | + + | Edema | + + documented in this encounter"
--- OUTSIDE RECORDS SUMMARY | ~2020-02-29 | XMS | Encounter Summary ---
Demographics + + + | Address | [address] | | | [place] [address] | + + + | Home Phone [...] Providers + +------+ + | Care Coil Shaper Name | Role | Phone | + [...] | | | | | | [place], | | | | | | | [place] | | | | | | | [address] | | | | | | | Phone: | | | | | | | [phone] | | | | | | | Fax: | | | | | | | [phone] | +--------+--------+ + + + + Encounter Details +--------+---------+ + + + | Date | Type | Department | Care Team | Description | +--------+---------+ + + + | 07/10/ | Office | Digestive Health | Eliezer Ruano, | Abdominal Pain, | | 2008 | Visit | [place] [address] | [address] | dumping syndrome Hx | | | | Ave Mailcode: CH4S | [address] | of gastric bypass | | | | [facility] | [place], [place] | (Primary Dx) | | | | and Healing, | [address] | | | | | Building | [phone] | | | | | Floor [place], [place] | | | | | | [address] | | | | | | [phone] | | | +--------+---------+ + + + [...] Eliezer Ruano MD - 07/17/2008 11:42 AM SHERRELLI performed a history and physical examinati on of the patient and discussed her management with the resident. I reviewed the resident s note and agree with the documented findings and plan of care. ELIEZER RUANO MD [facility] Mailcode: [place] [address] Yuriy Mayo MD - 06/16 [...] surgery, L5-S1 fusion with spur removal in [place], [place] 7 weeks ago. Allergies Allergen Reactions Keflex (Cephalexin) Sulfa (Sulfonamides) Codeine Penicillins Clindamycin Cipro (Ciprofloxacin) Tramadol Morphine IM ( only in [facility]) made gut pain worse 08/27/06: [...] 300 mg) by oral route once daily uixcmalmyt-owgzajyfzhnhq-bfgjgqdu (FIORICET) 50-325-40 mg Oral Tablet take 2 [...] 278 01/18 Paniculectomy Hx lumbar fusion 05/2008 L1-F3nxbozi with bone spur removals Review of Systems: [...]
--- OUTSIDE RECORDS SUMMARY | ~2020-02-29 | XMS | Encounter Summary ---
Demographics + + + | Address | [address] | | | [place] [address] | + + + | Home Phone [...] Team Providers + +------+ + | Care Ict Support Engineer Name | Role | Phone | + +------+ + | Maria Esther Cintron MD | PCP | | + +------+ + Encounter Details +--------+ + + + + | Date | Type | Department | Care Team | Description | +--------+ + + + + | 02/16/ | Telephone | Digestive Health | Chris Padgett, | | | 2007 | | [place] [address] | [address] [facility] | | | | | Bethanie Mailcode: CH4S | [address] | | | | | [facility] | [place], [place] | | | | | and Healing, | [address] | | | | | Building , 6th | [phone] | | | | | Floor [place], [place] | | | | | | [address] | | | | | | [phone] | | | +--------+ + + + [...] Notes Telephone Encounter - Kenisha Melton - 02/22/2008 12:28 PM PDTThe orders were faxed. It appeared they were received in his office. Will check. elephone Encounter - Lolly Herrera - 02/17/2008 3:07 PM PDTBelinda Meehan calling she spoke with Shadia on 02/14. Shadia was supposed to send orders to her PCP office for a C diff because she's had diarrhea for 7 days with 10lb weight loss. This was not done. Her PCP is Pedrito Gutierrez. Please fax orders to [phone]. Thank you . Pain Scale: na Recent Surgery or Procedure: no Pharmacy: Pharmacy Preferences: [facility] [place] [address] 9AM-9PM MON-FRI / 9AM-7PM SAT / 10AM-6PM SUN documented in this encoun ter Plan of Treatment Not on filedocumented as of this encounter Visit Diagnoses Not on filedocumented in this encounter"
--- OUTSIDE RECORDS SUMMARY | ~2020-02-29 | XMS | Encounter Summary ---
Demographics + + + | Address | [address] | | | [place] [address] | + + + | Home Phone [...] Providers + +------+ + | Care Ear Pull Machine Operator Name | Role | Phone [...] + + | 06/04/ | Telephone | [facility] INTER[facility] | Alanis, | Medication Problem | | 2016 | | MEDICINE [address] [place] [address] | MD Petrona | | | | | [place], | [address] [facility] | | | | | [place] [address] | [place] [address] | | | | | [phone] | [phone] | | | | | | | [...] Mcdermott - 06/04/2017 11:03 AM PSTContac t/Caller: Belinda-self Contact Number: [phone] Provider/Nurse: Emmy Reason for Call: patient had [...] | | | | | [place] [address] | | | | | | [phone] | | | | | | | | +--------+---------+ + + + documented as of this encounter Visit Diagnoses Not on filedocumented in this encounter"
--- OUTSIDE RECORDS SUMMARY | ~2020-02-29 | XMS | Encounter Summary ---
Demographics + + + | Address | [address] | | | [place] [address] | + + + | Home Phone [...] Team Providers + +------+ + | Care Cutting And Splicing Supervisor Name | Role | Phone | + +------+ + | Petrona Thapa | PCP | | | MD | | | + +------+ + Reason for Visit + +--------+ + | Reason | Onset | Comments | | | Date | | + +--------+ + | Results, Imaging | 01/08/ | | | | 2017 | | + +--------+ + Encounter Details +--------+ + + + + | Date | Type | Department | Care Team | Description | +--------+ + + + + | 01/08/ | Telephone | [facility] | Alanis, | Results, Imaging | | 2017 | | [facility] [address] | MD Petrona | | | | | [place], | [address] [place] | | | | | [place] [address] | [place] [address] | | | | | [phone] | [phone] | | | | | | | [...] Telephone Encounter - Maggie Montoya LPN - 01/08/2018 9:53 AM PDTOutside US /Abdominal Torrez ited received dated 12/28/17. Patient notified of Impression: Fatty Liver and stable simple c yst 3.7cm in right kidney as compared to previous study on 07/31/15. documented in this encounter Plan of Treatment [...] | | | | | [place] [address] | | | | | | [phone] | | | | | | | | +--------+---------+ + + + documented as of this encounter Visit Diagnoses Not on filedocumented in this encounter"
--- OUTSIDE RECORDS SUMMARY | ~2020-02-29 | XMS | Encounter Summary ---
Demographics + + + | Address | [address] | | | [place] [address] | + + + | Home Phone [...] Providers + +------+ + | Care Telecommunications Engineer Name | Role | Phone | [...] | | | | Clinical Nutrition | [place], [place] | | | | | [address] | [address] | | | | | Loop Mailcode: OPC5 | [phone] | | | | | Outpatient Clinic | | | | | | [facility] | | | | | | [place] [address] | | | | | | [phone] | | | +--------+ + + + [...] | + + + + + | [facility] | [address] | [place] [address] | | | LABORATORY | | | [...] | [facility] | | | | | [facility] | | | | | | Laboratories. | | | | + + + + + + + + | Specimen | + + | | + + + + + + + | Performing | Address | City/State/Zipcode | Phone Number | | Organization | | | | + + + + + | [facility] | [address] | [place] [address] | | | LABORATORY | | | [...] | pg/mL | | | | | [facility] [...] + + + | [facility] | [address] | [place] [address] | | | LABORATORY | | | [...] | | | SERUM | performed by [facility] | | | | | | [facility] | | | | | | Laboratories. | | | | + + + + + + + + | Specimen | + + | | + + + + + + + | Performing | Address | City/State/Zipcode | Phone Number | | Organization | | | | + + + + + | [facility] | [address] | [place] [address] | | | LABORATORY | | | [...] + | [facility] | [address] | [place] [address] | | | PATHOLOGY | [address] | | | + + + + + | [facility] | [address] | [place] [address] | | | PATHOLOGY | [address] | | | + + + + + documented in this encounter Visit Diagnoses Not on filedocumented in this encounter"
--- OUTSIDE RECORDS SUMMARY | ~2020-02-29 | XMS | Encounter Summary ---
Demographics + + + | Address | [address] | | | [place] [address] | + + + | Home Phone [...] Team Providers + +------+ + | Care Managing Supervisor Name | Role | Phone | [...] Rd | | | | | | [place], [place] | | | | | | [address] | | | +--------+ + + + [...] documented as of this encounter Procedure Notes Edwige Faculty - 11/03/2013 10:22 AM PDTAssociated Order(s): BONE DENSITOMETRYElectronicall y signed by Faculty Other at 11/03/2013 10:22 AM PDTdocumented in this encounter Miscellaneous Notes Scan - Edwige Faculty - 11/03/2013 10:23 AM PDTElectronically signed by Faculty Other at 10:23 AM PDTdocumented in this encounter Plan of [...]
--- OUTSIDE RECORDS SUMMARY | ~2020-02-29 | XMS | Encounter Summary ---
Demographics + + + | Address | [address] | | | [place] [address] | + + + | Home Phone [...] Providers + +------+ + | Care Staff Anesthesiologist Name | Role | Phone | [...] [facility] | | | | | [facility] | [place], [place] | | | | | and [place], | [address] | | | | | [place] [address] [facility] | [phone] | | | | | Floor [place], [place] | | | | | | [address] | | | | | | [phone] | | | +--------+ + + + [...] encounter Miscellaneous Notes Telephone Encounter - Kenisha MetlonANAYA - 09/11/2008 9:02 AM PDTPt. Attributed her f all, one of many to her amitriptylline, and discontinued it.. She reports abdominal swellin g, no melena, no hematemesis. She is due for EGD on Thursday here at [facility]. She will see h er PCP today. [...] Procedure: no Pharmacy: Pharmacy Preferences: [facility] [facility] Milly Horton [address] [facility] [place] [id number] documented in this encoun ter Plan of Treatment Not on filedocumented as of this encounter Visit Diagnoses Not on filedocumented in this encounter"
--- OUTSIDE RECORDS SUMMARY | ~2020-02-29 | XMS | Encounter Summary ---
Demographics + + + | Address | [address] | | | [place] [address] | + + + | Home Phone [...] Providers + +------+ + | Care Contact Manager Name | Role | Phone | [...] as of this encounter Discharge Summaries Interface, Server Support Technician In - 08/30/2005 2:07 AM PST [id number] GEOVANNI Barnes Admission Date: 07/24/2005 Discharge Date: [...] for an appointment. Joanna Ritchie M.D. / SHARIF [id number] / [id number] / [id number] / Electronically signed by Chris Padgett 08-29-2005 03:28:23 PM documented i n this encounter Plan of Treatment Not on filedocumented as of this encounter Visit Diagnoses Not on filedocumented in this encounter"
--- OUTSIDE RECORDS SUMMARY | ~2020-02-29 | XMS | Encounter Summary ---
Demographics + + + | Address | [address] | | | [place] [address] | + + + | Home Phone [...] Providers + +------+ + | Care Chemical Educator Name | Role | Phone | [...] + + | 02/01/ | Telephone | [facility] | Alanis, | Other (B12 shot) | | 2017 | | MEDICINE [address] | MD Petrona | | | | | [place], | [address] | | | | | [place] [address] | [place] [address] | | | | | [phone] | [phone] | | | | | | | [...] | | | | | [place] [address] | | | | | | [phone] | | | | | | | | +--------+---------+ + + + documented as of this encounter Visit Diagnoses Not on filedocumented in this encounter"
--- OUTSIDE RECORDS SUMMARY | ~2020-02-29 | XMS | Encounter Summary ---
Demographics + + + | Address | [address] | | | [place] [address] | + + + | Home Phone [...] Providers + +------+ + | Care Game Design Instructor Name | Role | Phone | [...] | | | | | Procedures | [place], [place] | [address] [facility] | | | | | CONSULT TO | [address] | [address] | | | | | SURGERY - | | [address] [place], | | | | | GENERAL | | [place] | | | | | | | [address] | | | | | | | Phone: | | | | | | | [phone] | | | | | | | Fax: | | | | | | | [phone] | +--------+--------+ + + + + Encounter Details +--------+ + + + + | Date | Type | Department | Care Team | Description | +--------+ + + + + | 08/31/ | [place] | Digestive Health | Nuris Cardenas ANP | Hemorrhoid (Primary | | 2008 | | Center [address] | | Dx) | | | | [address] | | | | | | Mailcode: [id number] | | | | | | Phys[facility] Pavilion | | | | | | [place], [place] | | | | | | [address] | | | | | | [phone] | | | +--------+ + + + [...]
--- OUTSIDE RECORDS SUMMARY | ~2020-02-29 | XMS | Encounter Summary ---
Demographics + + + | Address | [address] | | | [place] [address] | + + + | Home Phone [...] Team Providers + +------+ + | Care Fixed Route Bus Operator Name | Role | Phone | [...] as of this encounter Discharge Summaries Interface, Foundry Worker General In - 01/12/2005 10:09 AM PDT [id number] GEOVANNI SKELTON Molly Admission Date: 12/06/2004 Discharge Date: 12/09/2004 Staff [...] her incision looked clear, dry, and intact. [place] were in place. She had some moderate [...] will be with Dr. Chris Padgett on December. At that point, the JPs will likely be removed as well as the efren. Sree Carrillo M.D. Chris Padgett M.D. / [id number] / [id number] / [id number] / [id number] Electronically signed by Chris Padgett 12-31-2004 03:03:21 PM documented i n this encounter Plan of Treatment Not on filedocumented as of this encounter Visit Diagnoses Not on filedocumented in this encounter"
--- OUTSIDE RECORDS SUMMARY | ~2020-02-29 | XMS | Encounter Summary ---
Demographics + + + | Address | [address] | | | [place] [address] | + + + | Home Phone [...] Team Providers + +------+ + | Care Philosophy And Religion Instructor Name | Role | Phone | [...] | | | unspecified | Petrona | [address] | | | | | laterality | , MD [address] | | | | | | [address] | [place] | | | | | | [place], | [address] Phone: | | | | | | [place] | [phone] | | | | | | [address] | Fax: | | | | | | Phone: | [phone] | | | | | | [phone] | | | | | | | Fax: | | | | | | | [phone] | | +--------+ + + + + [...] y | Meniere's | Emmy-Jefft | EMD [address] | | | Required | | disease, | i, | [address] | | | | | unspecified | [place]a | [address] [place] | | | | | laterality | , [address] | [place] | | | | | | [address] | [address] Phone: | | | | | | [place], | [phone] | | | | | | [place] | Fax: | | | | | | [address] | [phone] | | | | | | Phone: | | | | | | | [phone] | | | | | | | Fax: | | | | | | | [phone] | | + + + + + + + Reason for Visit + +--------+ + | Reason | Onset | Comments | | | Date | | + +--------+ + | Referral (Follow up) | 10/16/ | | | | 2020 | | + +--------+ + Encounter Details +--------+ + + + + | Date | Type | Department | Care Team | Description | +--------+ + + + + | 10/16/ | Telephone | [facility] | Alanis, | Referral (Follow up) | | 2019 | | MEDICINE [address] | MD [place] | | | | | [place], | [address] [place] | | | | | [place] [address] | [place] [address] | | | | | [phone] | [phone] | | | | | | | [...] Miscellaneous Notes Telephone Encounter - Teresa Mitchell, Sueding Machine Operator - 10/17/2019 11:23 AM PDTPatie nt is scheduled with Dr. Yost for follow up on 12/21/19. Needs a new referral. Orders pended. YOVANI 08/15/19Electronically signed by Teresa Mitchell Sueding Machine Operator a t 10/17/2019 11:28 AM PDTdocumented in this encounter [...] | | | | | [place] [address] | | | | | | [phone] | | | | | | | [...]
--- OUTSIDE RECORDS SUMMARY | ~2020-02-29 | XMS | Encounter Summary ---
Demographics + + + | Address | [address] | | | [place] [address] | + + + | Home Phone [...] Team Providers + +------+ + | Care Pallet Assembler Name | Role | Phone | [...] as of this encounter Progress Notes Interface, Cookie Mixer Helper In - 10/03/2006 2:33 AM PDT [id number] GEOVANNI Barnes 201919 Clinic Date: 09/14/2006 Clinic: Rheumatology Belinda Meehan [...] every 3 days changed; Trileptal 225 mg; Ladysmith 10/325; and Actonel. Objective: Weight is 214, [...] to this. Caitlin Rivera M.S., F.N.P. / [id number] / [id number] / [id number] / [id number] cc: Pedrito Gutierrez M.D. [address] [facility] [place] [address] Linh Lambert, C.A.N.P. [facility] Electronically signed by Caitlin Rivera 10-02-2006 09:24:29 AM documented in this encounter Plan of Treatment Not on filedocumented as of this encounter Visit Diagnoses Not on filedocumented in this encounter"
--- OUTSIDE RECORDS SUMMARY | ~2020-02-29 | XMS | Encounter Summary ---
Demographics + + + | Address | [address] | | | [place] [address] | + + + | Home Phone [...] Providers + +------+ + | Care Management Supervisor Name | Role | Phone | + +------+ + | Petrona Thapa | PCP | | | MD | | | + +------+ + Reason for Visit +--------+--------+ + | Reason | Onset | Comments | | | Date | | +--------+--------+ + | Other | 08/20/ | | | | 2017 | | +--------+--------+ + Encounter Details +--------+ + + + + | Date | Type | Department | Care Team | Description | +--------+ + + + + | 08/20/ | Telephone | [facility] | Alanis, | Other | | 2017 | | MEDICINE [address] | MD Petrona | | | | | [place], | [address] [facility] | | | | | [place] [address] | [place] [address] | | | | | [phone] | [phone] | | | | | | | [...] Telephone Encounter - Maggie Montoya LPN - 08/24/2017 1:41 PM PDTPatient notified of corre ctions [facility]phone [facility] - 08/24/2017 11:57 AM PDTCorrections made. Electronical ly signed by Petrona Thapa MD at 08/24/2017 11:57 AM PDTTelephone Encounter - Adriana Cantor - 08/20/2017 9:06 AM PSTPatient called in wanting to speak with the nurs e regarding an issue with her records. Patient stated she was seen in [place] yesterday for a s urgery on her hand and records had been faxed over prior to her surgery. Patient stated her records have incorrect information in them and she is concerned. Patient stated her record s say she has COPD but the patient says she does not and has never been told she has it and has never been tested for COPD. Patient also stated that her records state she had a mastec matthew and a lumpectomy when she has only had a lumpectomy. Patient has an appointment this cecilia valles at 9:45 but otherwise will be available and would like a call back regarding this, . documented in this encounter Plan of Treatment +--------+---------+ + + + | Date | Type | Specialty | Care Team | Description | +--------+---------+ + + + | 05/17/ | Office | Internal Medicine | Alanis, | | | 2019 | Visit | | MD Petrona | | | | | | [facility] [address] | | | | | | [place] [address] | | | | | | [phone] | | | | | | | | +--------+---------+ + + + documented as of this encounter Visit Diagnoses Not on filedocumented in this encounter"
--- OUTSIDE RECORDS SUMMARY | ~2020-02-29 | XMS | Encounter Summary ---
Demographics + + + | Address | [address] | | | [place] [address] | + + + | Home Phone [...] + +------+ + | Care Income Tax Return Preparer Name | Role | Phone | [...] + + | 02/18/ | Telephone | [facility] | Alanis, | Results | | 2017 | | MEDICINE [address] | MD [place]a | | | | | [place], | [address] [facility] | | | | | [place] [address] | [place] [address] | | | | | [phone] | [phone] | | | | | | | [...] | | | | | [place] [address] | | | | | | [phone] | | | | | | | | +--------+---------+ + + + documented as of this encounter Visit Diagnoses Not on filedocumented in this encounter"
--- OUTSIDE RECORDS SUMMARY | ~2020-02-29 | XMS | Encounter Summary ---
Demographics + + + | Address | [address] | | | [place] [address] | + + + | Home Phone [...] Providers + +------+ + | Care Retail Custodial Associate Name | Role | Phone | + +------+ + | Sulaiman Carrera MD | PCP | | + +------+ + Encounter Details +--------+ + + + + | Date | Type | Department | Care Team | Description | +--------+ + + + + | 01/02/ | Ancillary | Registration 3181 | Beto Meeks MD | | | 2004 | Registratio | [facility] | [address] | | | | n | [address] Mailcode: [id number] | [place], [place] | | | | | [place], [place] | [address] | | | | | [address] | [phone] | | | | | [phone] | | | +--------+ + + + [...] [facility] DEPARTMENT OF | [address] | [place] [address] | | | PATHOLOGY | [address] | | | + + + + + | [facility] DEPARTMENT OF | [address] | [place] [address] | | | PATHOLOGY | [address] [...] DEPARTMENT OF | [address] | [place] [address] | | | PATHOLOGY | [address] | | | + + + + + | [facility] | [address] | [place] [address] | | | PATHOLOGY | [address] [...] uIU/ml | | | | | [facility] | | | | | | Laboratories. | | | | + + + + + + + + | Specimen | + + | | + + + + + + + | Performing | Address | City/State/Zipcode | Phone Number | | Organization | | | | + + + + + | [facility] | [address] | [place] [address] | | | LABORATORY | | | | + + + + + documented in this encounter Visit Diagnoses Not on filedocumented in this encounter"
--- OUTSIDE RECORDS SUMMARY | ~2020-02-29 | XMS | Encounter Summary ---
Demographics + + + | Address | [address] | | | [place] [address] | + + + | Home Phone [...] Team Providers + +------+ + | Care Ore Bridge Operator Name | Role | Phone | + +------+ + | Petrona Thapa | PCP | | | MD | | | + +------+ + Encounter Details +--------+ + + + + | Date | Type | Department | Care Team | Description | +--------+ + + + + | 09/01/ | Abstract | [facility] | Phyllis, | | | 2018 | | GASTROENTEROLOGY | [address] | | | | | [address] [facility] | Sulma Boyd | | | | | [address] [place] [address] | [facility] [place] [address] | | | | | [address] | | | | | | [phone] | | | +--------+ + + + [...] Petrona | | | | | | [address] | | | | | | [place] [address] | | | | | | [phone] | | | | | | | | +--------+---------+ + + + documented as of this encounter Visit Diagnoses Not on filedocumented in this encounter"
--- OUTSIDE RECORDS SUMMARY | ~2020-02-29 | XMS | Encounter Summary ---
Demographics + + + | Address | [address] | | | [place] [address] | + + + | Home Phone [...] Providers + +------+ + | Care Mobile Development Manager Name | Role | Phone [...] | | | | | | | [facility] | | | | | | [facility] and | | | | | | | Healing, | | | | | | | [address] | | | | | | | [place], [place] | | | | | | | [address] | | | | | | | Phone: | | | | | | | [phone] | | | | | | | Fax: | | | | | | | [phone] | +--------+--------+ + + + + Encounter Details +--------+---------+ + + + | Date | Type | Department | Care Team | Description | +--------+---------+ + + + | 01/10/ | Office | Digestive Health | Chris Padgett, | Status post | | 2009 | Visit | Center [address] | [address] [facility] | bariatric surgery | | | | Ave Mailcode: CH4S | [address] | (Primary Dx) | | | | [facility] | [place], [place] | | | | | and [place], | [address] | | | | | Building [address]th | [phone] | | | | | Floor [place], [place] | | | | | | [address] | | | | | | [phone] | | | +--------+---------+ + + + [...] and I asked her to see a office technology instructor where she lives. Will obtain CBC and [...]
--- OUTSIDE RECORDS SUMMARY | ~2020-02-29 | XMS | Encounter Summary ---
Demographics + + + | Address | [address] | | | [place] [address] | + + + | Home Phone [...] Providers + +------+ + | Care Buffing And Polishing Wheel Repairer Name | Role | Phone | + +------+ + | Petrona Thapa | PCP | | | MD | | | + +------+ + Reason for Visit + +--------+ + | Reason | Onset | Comments | | | Date | | + +--------+ + | Medication Refill | 04/26/ | | | | 2018 | | + +--------+ + Encounter Details +--------+--------+ + + + | Date | Type | Department | Care Team | Description | +--------+--------+ + + + | 04/26/ | Refill | [facility] [place] [facility] | Alanis, | Medication Refill | | 2018 | | [facility] [address] | MD [place]rona | | | | | [place], | [address] [place] | | | | | [place] [address] | [place] [address] | | | | | [phone] | [phone] | | | | | | | [...] | | | | | [place] [address] | | | | | | [phone] | | | | | | | | +--------+---------+ + + + documented as of this encounter Visit Diagnoses Not on filedocumented in this encounter"
--- OUTSIDE RECORDS SUMMARY | ~2020-02-29 | XMS | Encounter Summary ---
Demographics + + + | Address | [address] | | | [place] [address] | + + + | Home Phone [...] Team Providers + +------+ + | Care Tavern Keeper Name | Role | Phone | [...] | Epigastric | T, ANP | [address] | | | | | pain Status | [place], [place] | [address] | | | | | post | [address] | [place] | | | | | bariatric | | [place], 4th | | | | | surgery | | floor | | | | | Procedures | | [place], [place] | | | | | CONSULT TO | | [address] | | | | | GI PROCEDURE | | Phone: | | | | | UNIT: EGD | | [phone] | | | | | | | Fax: | | | | | | | [phone] | +--------+--------+ + + + + Reason [...] | | | | | | Rd [place], | | | | | | | [place] | | | | | | | [address] | | | | | | | Phone: | | | | | | | [phone] | | | | | | | Fax: | | | | | | | [phone] | +--------+--------+ + + + + Encounter Details +--------+---------+ + + + | Date | Type | Department | Care Team | Description | +--------+---------+ + + + | 08/28/ | Office | Digestive Health | Chris Padgett, | Epigastric Pain | | 2008 | Visit | [place] [address] | [address] | (Primary Dx); Status | | | | Ave Mailcode: CH4S | [address] | Post Bariatric | | | | Center for [facility] | [place], [place] | Surgery | | | | and Healing, | [address] | | | | | | [phone] | | | | | [place], [place] | | | | | | [address] | | | | | | [phone] | | | +--------+---------+ + + + [...] 09/01/2008 1:25:48 P M Modules accepted: Orders Chris Peralta MD - 08/31/2008 8:37 AM PDTThe patient [...] + + +--------+ + + | [place] UPPER GI | Procedures | Routin | [...] Performed At | + + + | [id number] Estimated GFR > 60 mL/min/1.73 sq m if non- | [facility] | | [place] 430288 Estimated GFR > 60 mL/min/1.73 sq m [...] + | [facility] | [address] | [place] [address] | | | PATHOLOGY | [address] | | | + + + + + | [facility] | [address] | [place] [address] | | | PATHOLOGY | [address] | | | + + + + + documented in this encounter Visit Diagnoses + + | Diagnosis | + + | Epigastric pain - Primary Abdominal pain, epigastric | + + | Status post bariatric surgery Bariatric surgery status | + + documented in this encounter"
--- OUTSIDE RECORDS SUMMARY | ~2020-02-29 | XMS | Encounter Summary ---
Demographics + + + | Address | [address] | | | [place] [address] | + + + | Home Phone [...] Providers + +------+ + | Care District Plant Superintendent Name | Role | Phone [...] + | 09/01/ | Telephone | [facility] | Alanis, | Sinus Pain | | 2018 | | MEDICINE [address] | MD Petrona | | | | | [place], | [address] [facility] | | | | | [place] [address] | [place] [address] | | | | | [phone] | [phone] | | | | | | | [...] | | | | | [place] [address] | | | | | | [phone] | | | | | | | | +--------+---------+ + + + documented as of this encounter Visit Diagnoses Not on filedocumented in this encounter"
--- OUTSIDE RECORDS SUMMARY | ~2020-02-29 | XMS | Encounter Summary ---
Demographics + + + | Address | [address] | | | [place] [address] | + + + | Home Phone [...] Providers + +------+ + | Care Roller Machine Operator Name | Role | Phone | + +------+ + | Pedrito Gutierrez MD | PCP | | + +------+ + Encounter Details +--------+---------+ + + + | Date | Type | Department | Care Team | Description | +--------+---------+ + + + | 02/01/ | Office | Digestive Health | Chris Padgett, | Status Post | | 2006 | Visit | [facility] [address] | [address] | Bariatric Surgery; | | | | Ave Mailcode: CH4S | [address] | Follow-Up | | | | Center for [facility] | [place], [place] | Examination | | | | and Healing, | [address] | Following Surgery | | | | Building | [phone] | | | | | Floor [place], [place] | | | | | | [address] | | | | | | [phone] | | | +--------+---------+ + + + [...] history of intermittent abdominal pain comes to [facility] for 3 mo f/u evaluation with [...]
--- OUTSIDE RECORDS SUMMARY | ~2020-02-29 | XMS | Encounter Summary ---
Demographics + + + | Address | [address] | | | [place] [address] | + + + | Home Phone [...] Providers + +------+ + | Care Aerospace Medicine Physician Name | Role | Phone [...] [address] | | | | | [place], [place] | [place], [place] | | | | | [address] | [address] | | | | | [phone] | [phone] | | | | | | | [...] + | ABDOMEN, 2 | Radiologist 1: DOBOS, | | | | | VIEWS | [...] | | + +---------+ + + | [facility] | | | | | RADIOLOGY | | | | + +---------+ + + documented in this encounter Visit Diagnoses Not on filedocumented in this encounter"
--- OUTSIDE RECORDS SUMMARY | ~2020-02-29 | XMS | Encounter Summary ---
Demographics + + + | Address | [address] | | | [place] [address] | + + + | Home Phone [...] Team Providers + +------+ + | Care Comparative Sociology Professor Name | Role | Phone | + +------+ + | Petrona Thapa | PCP | | | MD | | | + +------+ + Encounter Details +--------+---------+ + + + | Date | Type | Department | Care Team | Description | +--------+---------+ + + + | 12/18/ | Surgery | [facility] | Luther Brito MD | EGD | | 2018 | | MED [facility] | [address] | | | | | [address] | [place], [place] | | | | | [place] | [address] | | | | | [address] | [phone] | | | | | [phone] | | | +--------+---------+ + + + [...] + + + | Blood Pressure | 119/64 | 12/18/2017 9:14 AM | | | | | PDT | | + + + + + | Pulse | 68 | 12/18/2017 9:14 AM | | | | | PDT | | + + + + + | Temperature | 36.2 C (97.2 F) | 12/18/2017 9:14 AM | | | | | PDT | | + + + + + | Respiratory Rate | 14 | 12/18/2017 9:14 AM | | | | | PDT | | + + + + + | Oxygen Saturation | 96% | 12/18/2017 9:14 AM | | | [...] You can't be awakened Date Last Reviewed: 04/01/201619992755-1041 [employer]. [address] [place] [address], [place] [address]. All righ ts reserved. This information is [...] documented as of this encounter H&P Notes Luther Brito MD - 12/18/2017 10:55 AM PDTPatient interviewed, history and physical, symp toms reviewed VS signs noted, no change from previous H&P or assessment and plan.Electronic ally signed by Luther Brito MD at 12/18/2017 10:55 AM Luther Tatum MD - 12/18/2017 1 0:54 AM PDT PRE-ENDOSCOPY HISTORY AND PRE-SEDATION ASSESSMENT PATIENT NAME: Belinda Rodriguez : 1960 TODAY'S DATE: 12/18/2017 PLANNED PROCEDURE: endoscopy and colonoscopy PERTINENT HISTORY/INDICATION FOR PROCEDURE: Belinda Rodriguez is a 57 y.o. female who is undergoing endoscopy for abdominal pain, diarrhea, fecal incontinence. PAST HISTORY: Past Medical History: Diagnosis Date Anemia [...] uncontrolled 05/04/2017 Vitamin D deficiency PAST SURGICAL HISTORY Past Surgical History: Procedure Laterality Date ADENOIDECTOMY APPENDECTOMY BREAST LUMPECTOMY Left 2002 CARPAL TUNNEL RELEASE 2002 SECTION CHOLECYSTECTOMY 2004 DILATION AND CURETTAGE OF UTERUS ELBOW SURGERY FINGER TRIGGER RELEASE 2002 FINGER TRIGGER RELEASE 2010 GASTRIC BYPASS SURGERY 2004 HYSTERECTOMY 05/14/1980 JOINT REPLACEMENT Bilateral 2007,2008 KNEE ARTHROSCOPY 2005 LAPAROSCOPY 01/27/2015 LAPAROTOMY 2008 ROTATOR CUFF REPAIR 2005 SPINE SURGERY TONSILLECTOMY 1964 HOME MEDS: Scheduled Meds: Continuous Infusions: lactated ringers 100 mL/hr at 12/18/17 0928 PRN Meds:.albuterol, albuterol-ipratropium, dextrose ALLERGIES Allergies Allergen Reactions Codeine Sulfate Nausea Only Levofloxacin Hives, Itching and Rash Amitriptyline Hcl Other (See Comments) Confused and questionable for seizures Sylmgnbzcm-Rqoc-Aeytjqif Hives and Rash Cephalexin Hives Ciprofloxacin Hives and Rash Clarithromycin Hives and Rash Clindamycin Hcl Hives and Rash Doxycycline Rash Duloxetine Other (See Comments) Migraines and nausea Ketorolac Hives Levofloxacin Hives and Rash Morphine Swelling Penicillins Hives and Rash Ropinirole Hcl Hives Sulfamethoxazole-Trimethoprim Hives and Rash Tramadol Hcl Nausea Only ASA CLASSIFICATION: Class 3 - A patient with severe systemic disease that limits activity b ut is not incapacitating EXAMINATION: BP 119/64 | Pulse 68 | Temp 36.2 C (97.2 F) (Temporal) | Resp 14 | Ht 1.727 m (5' 8 ") | Wt 102.8 kg (226 lb 10.1 oz) | SpO2 96% | BMI 34.46 kg/m General: Alert and oriented Throat: Normal Lungs: Clear Heart: Regular rate and rhythm with out significant murmur Abdomen: flat, normal bowel sounds. Soft, nontender 1. Available medical records have been reviewed. 2. Medication list reviewed. IMPRESSION: . Patient appropriate for procedure. PLAN: 1. Proceed with procedure as stated above with moderate sedation/analgesia 2. Procedure, indications, risks and alternatives explained to patient/family and they agre ed to proceed and consent was signed. 3. Patient will be reevaluated immediately (1-2 minutes) before sedation administration and approved for the plan as stated above. Electronically Signed by: Luther Brito MD 12/18/2017 [facility] Portions of this chart may have been created with doggyloot voice recognition software. Occasi onal wrong-word or sound-alike substitutions may have occurred due to the inherent mitchell itations of voice recognition software. Please read the chart carefully and recognize, using context, where these substitutions have occurred documented in this encounter Miscellaneous Notes D-C Instructions Provation - Luther Brito MD - 12/18/2017 10:49 AM PDTDischarge Instruct ions for Upper Endoscopy Patient: Belidna Rodriguez : 1960 Acct: [id number] Exam Date: Monday, December 18, 2017 Doctor: Luther Brito MD The chances of difficulty following this procedure are minimal. The following instructions will assist you in your recovery. 1. Do Not eat or drink anything for 1 hour. Try sips of water first. If tolerated, resume your regular diet or one recommended by your physician. 2. Do not drive, operate machinery, make critical decisions, or do activities that require coordination or balance for 24 hours. 3. You may experience a sore throat for 24 - 48 hours. You may use throat lozenges or gargle with warm salt water to relieve the discomfort. 4. Because air was put into your stomach druing the procedure, you may experience some belching. 5. Do not use any medication containing aspirin for 10 days, unless otherwise directed by your physician. 6. Sometimes the medications given to you druing the exam can aggravate the veins. The chemical irritation can cause inflammation or pain along the arm with redness, swelling and warmth. This does not mean there is an infection. You can treat the affected area by applying warm, wet compresses (towels) 4 times a day for 20 minutes at a time until inflammation is resolved 7. Report to your doctor: Chills and/or fever over 100 Persistent vomiting or vomiting with blood/nasal regurgitation Severe abdominal pain, other than gas cramps Severe chest pain Black, tarry stools You may reach your physician at Work: . If unable to reach your physician, call [facility] Emergency Department at Ext. [phone] Your doctor recommends these additional instructions: You have a contact number available for emergencies. The signs and symptoms of potential delayed complications were discussed with you. You may return to normal activities tomorrow. Written discharge instructions were provided to you. Eat a high fiber diet. Continue your present medications. We are waiting for your pathology results. Your physician has recommended a repeat upper endoscopy for surveillance based on pathology results. Return to your GI clinic as needed. Do not take any aspirin, ibuprofen (including Advil, Motrin or Nuprin), naproxen (including Aleve), or any other non-steroidal anti-inflammatory drugs. The findings and recommendations have been discussed with you. Eat a low fat diet indefinitely. These instructions have been explained to the patient and/or escort. A copy has been given to the patient/escort. Nurse Signature Patient Signature Escort Signature Date Luther Brito MD 12/18/2017 11:59:34 AM This report has been signed electronically.Electronically signed by Luther Brito MD at 11:59 AM PDTD-C Instructions Provation - Luther Brito MD - 12/18/2017 10:43 AM P DTDischarge Instructions for Colonoscopy Exams Patient: Belinda Rodriguez : 1960 Acct: [id number] Exam Date: Monday, December 18, 2017 Doctor: Luther Brito MD You have had an examination of the gastrointestinal tract. The chances of difficulty following this procedure are minimal. The following instructions will assist you in your recovery. ACTIVITIES: Rest quietly until sedation wears off. DO NOT drive a motor vehicle or operate machinery for 24 hours after sedation. Be cautious making critical decisions for 24 hours after sedation. DIET: If throat has been sprayed, do not eat or drink for 1 hour after. Start with a swallow of tap water, if you experience any lack of sensation in your throat, wait another 30 - 60 minutes and start with water again. Once swallowing has returned to normal you may resume your usual diet unless otherwise instructed by your physician. DISCOMFORT: If you had a bowel exam, you may have some abdominal discomfort from the air put into your bowel during the exam. Moving about will help you pass this air. Sometimes the medications given to you during the exam can aggravate the veins. The chemical irritation can cause inflammation or pain along the arm with redness, swelling and warmth. This does not mean there is an infection. You can treat the affected area by applying warm,wet compresses (towels) 4 times a day for 20 minutes at a time until inflammation is resolved. REPORT TO YOUR DOCTOR: Unusual abdominal pain Chest pain or unusual shortness of breath Shoulder pain Nausea, vomiting Fever over 100 degrees, chills Signs of rectal bleeding (red or black stools) Any concern you have resulting from procedure You may reach your physician at Work: . If unable to reach your physician, call [facility] Emergency Department at Ext. [phone] Your doctor recommends these additional instructions: You have a contact number available for emergencies. The signs and symptoms of potential delayed complications were discussed with you. You may return to normal activities tomorrow. Written discharge instructions were provided to you. Eat a high fiber diet and eat a low fat diet. Continue your present medications. We are waiting for your pathology results. Your physician has recommended a repeat colonoscopy in three years for surveillance based on pathology results. Return to your GI clinic as needed. Do not take any aspirin, ibuprofen (including Advil, Motrin or Nuprin), naproxen (including Aleve), or any other non-steroidal anti-inflammatory drugs. The findings and recommendations have been discussed with you. These instructions have been explained to the patient and/or escort. A copy has been given to the patient/escort. Nurse Signature Patient Signature Escort Signature Date Luther Brito MD 12/18/2017 12:03:26 PM This report has been signed electronically.Electronically signed by Luther Brito MD at 12:03 PM PDTdocumented in this encounter Plan of Treatment +--------+---------+ + + + | Date | Type | Specialty | Care Team | Description | +--------+---------+ + + + | 05/17/ | Office | Internal Medicine | EmmyAlberto, | | | 2019 | Visit | | MD Petrona | | | | | | [address] [facility] [place] | | | | | | [place] [address] | | | | | | [phone] | | | | | | | [...] 12/18/2017 | [facility] | | 10:49 AMMRN: [id number] #: [id number] of : | | | 9Admit Type: AmbulatoryAge: 57Room: [place] [address]Gender: FemaleNote | | | Status: FinalizedAttending MD: Luther Brito , [facility]cedure[facility] | | | Upper GI endoscopyIndications: [...] the anesthesiologist and the | | | screening technician in the pre-procedure area in the [...] | appearing mucosa. This was traversed. The inpmg-br-jtnraol limb | | | was characterized by healthy appearing mucosa. The | | | jejunojejunal anastomosis was characterized by healthy | | | appearing mucosa. The sgaqfqfz-pq-jxxtxwx limb was not examined | | | [...] AMScope Out: | | | 11:08:34 AM [facility], [address] | | | [place] [address] | | | - Return to GI [...] |Scope Out: 11:08:34 AM | | | [facility], [address], [place] | | | [address] | | + + -+ + +---------+ [...] 12/18/2017 | [facility] | | 10:43 AMMRN: [id number] #: [id number] of : | | | 1960dmit Type: AmbulatoryAge: 57Room: [facility] 01Gender: FemaleNote | | | Status: FinalizedAttending MD: Luther Brito , [facility]rocedure: | | | ColonoscopyIndications: Generalized abdominal [...] the anesthesiologist and the | | | screening technician in the pre-procedure area in the [...] Scope In: 11:12:28 AMScope Out: 11:56:57 AM [place] | | | [facility], [address] [place] [address] | | | [phone] | | | - Await pathology results. [...] |Scope Out: 11:56:57 AM | | | [facility], [address], [place] | | | [address] | | + + -+ + +---------+ + + | Performing | Address | City/State/[facility] Hospitalcode | Phone Number | | Organization [...] for specific diagnostic abnormality. | | | JVR:[facility]:C2NR GROSS DESCRIPTION: Received in five parts. | | | All specimens are received in formalin, labeled "Belinda Rodriguez." | | | All specimen descriptions are [...] Submitted all in | | | (E1). ka:MARTIN:samantha PERFORMING LABORATORY: Tissue processing and | | | slide preparation were performed by [email or web address], [address], [place] [address] (Rn Intern: Stephen Jacobson, | | | Joanna CLIA#: [id number]). Professional interpretation was performed | | | by [email or web address], [facility], [address] [place] [address] (Rn Intern: Stephen Jacobson M.D.; CLIA#: [id number]). Diagnostician: Stephen Donaldson | Kavon SHEEHAN Pathologist Electronically Signed 12/21/2017 | | + + + + +---------+ + + | Performing | Address | City/State/[facility] Hospitalcode | Phone Number | | Organization [...]
--- OUTSIDE RECORDS SUMMARY | ~2020-02-29 | XMS | Encounter Summary ---
Demographics + + + | Address | [address] | | | [place] [address] | + + + | Home Phone [...] Team Providers + +------+ + | Care Vendette Name | Role | Phone | + [...] | | | | unspecified | [place] [address] | [address] | | | | | laterality | Phone: | Phone: | | | | | | [phone] | [phone] | | | | | | Fax: | Fax: | | | | | | [phone] | [phone] | +--------+ + + + + + [...] | | | | [place] | [address] | laterality (Primary | | | | [address] | | Dx) | | | | [phone] | | | +--------+ + + + [...] | | | | | [place] [address] | | | | | | [phone] | | | | | | | [...]
--- OUTSIDE RECORDS SUMMARY | ~2020-02-29 | XMS | Encounter Summary ---
Demographics + + + | Address | [address] | | | [place] [address] | + + + | Home Phone [...] Team Providers + +------+ + | Care Lap Machine Tender Name | Role | Phone [...] + + | 01/01/ | Refill | [facility] | Alanis, | Medication Refill | | 2017 | | MEDICINE [address] | MD Petrona | | | | | [place], | [address] [facility] | | | | | [place] [address] | [place] [address] | | | | | [phone] | [phone] | | | | | | | [...] | | | | | [place] [address] | | | | | | [phone] | | | | | | | | +--------+---------+ + + + documented as of this encounter Visit Diagnoses Not on filedocumented in this encounter"
--- OUTSIDE RECORDS SUMMARY | ~2020-02-29 | XMS | Encounter Summary ---
Demographics + + + | Address | [address] | | | [place] [address] | + + + | Home Phone [...] Team Providers + +------+ + | Care Ecommerce Project Manager Name | Role | Phone [...] [facility] | | | | | | [facility] | | | | | | and [place], | | | | | | [facility] [address], 6th | | | | | | Floor [place], [place] | | | | | | [address] | | | | | | [phone] | | | +--------+ + + + [...] on patient's answering machine. thank you, helena [id number] signed by Helena Vega at 06/01/2006 9:16 AM PSTdocumented in th is encounter Plan of Treatment Not on filedocumented as of this encounter Visit Diagnoses Not on filedocumented in this encounter"
--- OUTSIDE RECORDS SUMMARY | ~2020-02-29 | XMS | Encounter Summary ---
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 female [facility] Comprehensive Pain [...] Meehan. We reviewed materials risk notice and [facility] opioid agreement. A ll questions were [...] management and reduce opioid need. DELFINA MOLINA [facility] Mail code CH 4P [facility] and [address] [address] Ailyn Foster - 12/22/19 07 [...]
--- OUTSIDE RECORDS SUMMARY | ~2020-02-29 | XMS | Encounter Summary ---
Demographics + + + | Address | [address] | | | [place] [address] | + + + | Home Phone [...] Team Providers + +------+ + | Care Microsoft Developer Name | Role | Phone | [...] | | Center at [facility] [address] | AIRPORT ENGINEER [address] | | | | | [address] [place] | [facility] [address] | | | | | for Health and | [place], [place] | | | | | [place] [address] | [address] | | | | | [place], [place] | [phone] | | | | | [address] | | | | | | [phone] | | | +--------+ + + + [...]
--- OUTSIDE RECORDS SUMMARY | ~2020-02-29 | XMS | Encounter Summary ---
Demographics + + + | Address | [address] | | | [place] [address] | + + + | Home Phone [...] Team Providers + +------+ + | Care Cement Worker Name | Role | Phone | [...] [facility] | | | | | [place] [address] | [place] [address] | | | | | [phone] | [phone] | | | | | | | [...] PDTPatient notified of x-ray order faxed to [facility] elephone Encounter - Petrona Thapa MD - 08/24/2018 [...] to be ordered an d sent to [facility] advise. documented in this encounter Plan of Treatment +--------+---------+ + + + | Date | Type | Specialty | Care Team | Description | +--------+---------+ + + + | 05/17/ | Office | Internal Medicine | Alanis, | | | 2019 | Visit | | MD Petrona | | | | | | [address] [facility] [address] | | | | | | [place] [address] | | | | | | [phone] | | | | | | | [...]
--- OUTSIDE RECORDS SUMMARY | ~2020-02-29 | XMS | Encounter Summary ---
Demographics + + + | Address | [address] | | | [place] [address] | + + + | Home Phone [...] Team Providers + +------+ + | Care Ballroom Dance Instructor Name | Role | Phone | [...] + | 01/25/ | Telephone | [facility] | Alanis, | Medical Problem | | 2017 | | MEDICINE [address] | MD Petrona | | | | | [place], | [address] [facility] | | | | | [place] [address] | [place] [address] | | | | | [phone] | [phone] | | | | | | | [...] patient's voicemail to seek medical attention at [facility] when back in town to have ear [...] | | | | | [place] [address] | | | | | | [phone] | | | | | | | | +--------+---------+ + + + documented as of this encounter Visit Diagnoses Not on filedocumented in this encounter"
--- OUTSIDE RECORDS SUMMARY | ~2020-02-29 | XMS | Encounter Summary ---
Demographics + + + | Address | [address] | | | [place] [address] | + + + | Home Phone [...] + +------+ + | Care Configuration Management Manager Name | Role | Phone | [...] | Pain | Diagnoses | [place], | [place], | | | | Management | LBP (low | NIHARIKA Jean | Lukasz Rhodes, PhD | | | | | back pain) | [address] | [address] | | | | | DJD | [address] | Ave | | | | | (degenerativ | [place], [place] | [place] | | | | | e joint | [address] | [address] | | | | | disease) of | | Phone: | | | | | knee Knee | | [phone] | | | | | pain Major | | Fax: | | | | | depressive | | [phone] | | | | | disorder, | [...] | | [facility] | [place], [place] | Episode, Mild (HCC); | | | | and Healing, | [address] | LBP (Low Back | | | | | [phone] | Pain); Migraine | | | | Floor [place], [place] | | Headache; Adjustment | | | | [address] | | Disorder with | | | | [phone] | | Anxiety | +--------+---------+ + + [...] plans for her surgical recovery period. Diagnosis: [place] I: 1. (296.31) Major depressive disorder, recurrent, mild. 2. (309.24) Adjustment disorder with anxiety. 3. (307.89) Chronic pain disorder associated with both psychological factors and a gene ral medical condition. [place] II: Deferred [place] III: abdominal pain, migraine headache, low back pain. [place] IV: low finances [place] V: GAF 55-60 Plan: return with next medical follow-up appointment. Check mood, pain, relaxation, activ ity, distraction, eating. Ask about headaches, fainting, surgery. Continue cognitive/behav ioral therapy. Total time spent with patient was approximately 45 minutes. LUKASZ CHARLES PHD [facility] [address] [place] [address] And [facility], 4th [place] [address] documented in this encount er Plan of Treatment + + +--------+ + + | Name | Type | Priori | Associated Diagnoses | Order Schedule | | | | ty | | | + + +--------+ + + | [facility], | Procedures | Routin | Major Depressive | Ordered: 04/13/2008 | | OFFICE ([id number]) | | e | Disorder, Recurrent | [...]
--- OUTSIDE RECORDS SUMMARY | ~2020-02-29 | XMS | Encounter Summary ---
Demographics + + + | Address | [address] | | | [place] [address] | + + + | Home Phone [...] + +------+ + | Care Inventory Control Analyst Name | Role | Phone | [...] as of this encounter Progress Notes Interface, Cost Control Specialist In - 01/12/2005 10:09 AM PDT [id number] [facility] Date: 12/19/2004 Clinic: General Surgery Clinic Primary Care Physician: Dr. Pedrito Gutierrez. Subjective: Mrs. Meehan returns post paniculectomy for removal of efren and Naeem-Claudio drain tubes. She is having [...] are placed and no bleeding noted. Multiple efren are removed from the lower pubic from hip to hip as well as half midline. All wound edges are well approximated. Bilateral thigh efren also removed. Small amount of left inner [...] was doing well without evidence of infection. Perry and drains were removed showing intact skin [...] as vitamin B12. Melisa Thorne / SHARIF [id number] / [id number] / [id number] / [id number] cc: Pedrito Gutierrez M.D. [facility] [address] [place] [address] FAX: [phone] Chris Padgett M.D. General Surgery, [facility] Electronically signed by Kenisha Melton 12-25-2004 04:28:39 PM documented i n this encounter Plan of Treatment Not on filedocumented as of this encounter Visit Diagnoses Not on filedocumented in this encounter"
--- OUTSIDE RECORDS SUMMARY | ~2020-02-29 | XMS | Encounter Summary ---
Demographics + + + | Address | [address] | | | [place] [address] | + + + | Home Phone [...] Providers + +------+ + | Care Campaign Director Name | Role | Phone | + +------+ + PCP | Unavailable | + +------+ + Encounter Details +--------+ + + + + | Date | Type | Department | Care Team | Description | +--------+ + + + + | 01/02/ | Telephone | Dig[facility]ive [facility] | Kenisha Melton, | | | 2005 | | [address] | [facility] [address] | | | | | [address] | [address] | | | | | Mailcode: [id number] | [place], [place] | | | | | [facility] | [address] | | | | | [place], [place] | [phone] | | | | | [address] | | | | | | [phone] | | | +--------+ + + + [...] 6:51 PM Regarding: FW: colonoscopy Contact: Dr. Padgett, the pt. gets severe right abd pains. [...] calling to say that her hospital in [place] has reported that they found nothing o [...]
--- OUTSIDE RECORDS SUMMARY | ~2020-02-29 | XMS | Encounter Summary ---
Demographics + + + | Address | [address] | | | [place] [address] | + + + | Home Phone [...] Providers + +------+ + | Care Mill Attendant Name | Role | Phone | + +------+ + | Pedrito Gutierrez MD | PCP | | + +------+ + Reason for Visit + +--------+ + | Reason | Onset | Comments | | | Date | | + +--------+ + | Lab findings, | 07/07/ | | | teaching, guidance, | 2007 | | | and counseling | | | + +--------+ + Encounter Details +--------+ + + + + | Date | Type | Department | Care Team | Description | +--------+ + + + + | 07/07/ | Telephone | Dig[facility]ive [facility] | Chris Padgett, | Lab findings, | | 2007 | | [place] [address] | [address] | teaching, guidance, | | | | Ave Mailcode: [id number] | [address] | and counseling | | | | [facility] | [place], [place] | | | | | and Healing, | [address] | | | | | [place] [address] [facility] | [phone] | | | | | [place], [place] | | | | | | [address] | | | | | | [phone] | | | +--------+ + + + [...] Notes Telephone Encounter - Nuris Cardenas Rn 07/07/2007 10:31 AM PSTForwarded to DUC zhang to cathie camejo pt. elephone Encounter - Xiao Bowers - 07/07/2007 10:13 AM PSTPatient calling for blood work results from Please call today after 3:30 or after 10 am documented in this encounter Plan of Treatment Not on filedocumented as of this encounter Visit Diagnoses Not on filedocumented in this encounter"
--- OUTSIDE RECORDS SUMMARY | ~2020-02-29 | XMS | Encounter Summary ---
Demographics + + + | Address | [address] | | | [place] [address] | + + + | Home Phone [...] Team Providers + +------+ + | Care Actionscript Developer Name | Role | Phone | [...] | | | | [place], | [address] | | | | | | [place] | Phone: | | | | | | [address] | [phone] | | | | | | Phone: | Fax: | | | | | | [phone] | [phone] | | | | | | Fax: | | | | | | | [phone] | | +--------+ + + + + + Encounter Details +--------+---------+ + + + | Date | Type | Department | Care Team | Description | +--------+---------+ + + + | 11/16/ | Office | [facility] | Alanis, | Diarrhea, | | 2017 | Visit | GASTROENTEROLOGY | MD Petrona | unspecified type | | | | [address] [facility] | [address] [facility] | (Primary Dx); | | | | [address] [place], [place] | [place] [address] | Chronic diarrhea; | | | | [address] | [phone] | S/P gastric bypass; | | | | [phone] | | Gastroesophageal | | | | | Luther Brito MD | reflux disease, | | | | | [address] | esophagitis presence | | | | | [place] | not specified; | | | | | [address] | History of gastric | | | | | [phone] | ulcer; Abdominal | | | | | | pain, unspecified | | | | | | abdominal location; | | | | | | Narcotic dependence | | | | | | ([facility]); Obesity (BMI | | | | | [...] ordered and patient will complet e at [facility] [address] in [place], orders were faxed; scheduled for egd/colon prop on 12/[address] Brito; advised to hold PPI day of procedure, she agreed. 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 documented in this encounter H&P Notes Luther Brito MD - 11/16/2017 9:30 AM PDT Date [...] takes Imodium liquid frequently and goes throu approximately 2 bottles a week of liquid [...] apnea Spondylosis with myelopathy, lumbar region Stroke ([facility]) Syncope Tremor Type II or [...] (See Comments) Confused and questionable for seizures Fffaqblivk-Qbnj-Xaqmleup Not Noted Cephalexin Hives Duloxetine Not Noted Migraines and nausea Ketorolac Hives Morphine Swelling Ropinirole Hcl Hives Tramadol Hcl Nausea Only Wivsihopft-Ncep-Hueyqooy Hives,Rash Ciprofloxacin Hives,Rash Clarithromycin Hives,Rash Clindamycin Hcl [...] | | [facility] [address] | | | | | | [place] [address] | | | | | | [phone] | | | | | | | [...]
--- OUTSIDE RECORDS SUMMARY | ~2020-02-29 | XMS | Encounter Summary ---
Demographics + + + | Address | [address] | | | [place] [address] | + + + | Home Phone [...] Providers + +------+ + | Care Dry Box Tender Name | Role | Phone | [...] + | 04/04/ | Telephone | [facility] | Alanis, | Toe Fracture | | 2019 | | MEDICINE [address] | MD Petrona | | | | | [place], | [address] | | | | | [place] [address] | [place] [address] | | | | | [phone] | [phone] | | | | | | | [...] MD - 04/05/2019 11:04 AM PDTIf her barrel raiser does not see the necessity of getting an x-ray, I do not think it would be very helpful to get one.Electr onically signed by Petrona Thapa MD at 04/05/2019 11:06 AM PDTTelephone Susanna Sibley - 04/04/2019 3:08 PM PDTPatient called regarding her big toe, states she thinks its still broken and she can't seem to get an x-ray from the barrel raiser. Please a dvise. documented in this e [...] | | | | | [place] [address] | | | | | | [phone] | | | | | | | | +--------+---------+ + + + documented as of this encounter Visit Diagnoses Not on filedocumented in this encounter"
--- OUTSIDE RECORDS SUMMARY | ~2020-02-29 | XMS | Encounter Summary ---
Demographics + + + | Address | [address] | | | [place] [address] | + + + | Home Phone [...] Providers + +------+ + | Care Glass Novelty Maker Name | Role | Phone | [...] | | | | [address] [facility] | | | | | | [address] [place] | | | | | | [address] | | | | | | [phone] | | | +--------+ + + + [...] | | | | | | [address] [place] [address] [address] | | | | | | [place] [address] | | | | | | [phone] | | | | | | | | +--------+---------+ + + + documented as of this encounter Visit Diagnoses Not on filedocumented in this encounter"
--- OUTSIDE RECORDS SUMMARY | ~2020-02-29 | XMS | Encounter Summary ---
Demographics + + + | Address | [address] | | | [place] [address] | + + + | Home Phone [...] Providers + +------+ + | Care Fur Dry Cleaner Hand Name | Role | Phone | + +------+ + | Sulaiman Carrera MD | PCP | | + +------+ + Encounter Details +--------+ + + + + | Date | Type | Department | Care Team | Description | +--------+ + + + + | 08/26/ | Ancillary | Registration [address] | | | | 2006 | Registratio | [address] | | | | | n | [address] Mailcode: [id number] | | | | | | [place], [place] | | | | | | [address] | | | | | | [phone] | | | +--------+ + + + [...]
--- OUTSIDE RECORDS SUMMARY | ~2020-02-29 | XMS | Encounter Summary ---
Demographics + + + | Address | [address] | | | [place] [address] | + + + | Home Phone [...] Team Providers + +------+ + | Care Collision Repair Technician Name | Role | Phone [...] | | | | Clinical Nutrition | [place], [place] | | | | | [address] | [address] | | | | | [address] Mailcode: [id number] | [phone] | | | | | Outpatient Clinic | | | | | | [facility], | | | | | | [place] [address] | | | | | | [phone] | | | +--------+ + + + [...]
--- OUTSIDE RECORDS SUMMARY | ~2020-02-29 | XMS | Encounter Summary ---
Demographics + + + | Address | [address] | | | [place] [address] | + + + | Home Phone [...] Providers + +------+ + | Care Enterprise Solutions Architect Name | Role | Phone [...] + + | 05/18/ | Refill | [facility] | Alanis, | Medication Refill | | 2016 | | MEDICINE [address] | MD Petrona | | | | | [place], | [address] [facility] | | | | | [place] [address] | [place] [address] | | | | | [phone] | [phone] | | | | | | | [...] | | | | | [place] [address] | | | | | | [phone] | | | | | | | | +--------+---------+ + + + documented as of this encounter Visit Diagnoses Not on filedocumented in this encounter"
--- OUTSIDE RECORDS SUMMARY | ~2020-02-29 | XMS | Encounter Summary ---
Demographics + + + | Address | [address] | | | [place] [address] | + + + | Home Phone [...] Providers + +------+ + | Care Equipment Operator/Laborer Name | Role | Phone | + [...] as of this encounter Progress Notes Interface, Magazine Keeper In - 01/12/2005 6:32 AM PDTClinic Date: [...] improves, and the leg discomfort is actually healthcare representative of restless legs. I have given [...] 4 months. Caitlin Rivera M.S., F.N.P. / [id number] / [id number] / [id number] / [id number] cc: Pedrito Gutierrez M.D. [address] [place] [address] signed by Interface, Magazine Keeper In at 01/12/2005 6:3 2 AM PDTdocumented in this encounter Plan of Treatment Not on filedocumented as of this encounter Visit Diagnoses Not on filedocumented in this encounter"
--- OUTSIDE RECORDS SUMMARY | ~2020-02-29 | XMS | Encounter Summary ---
Demographics + + + | Address | [address] | | | [place] [address] | + + + | Home Phone [...] Providers + +------+ + | Care Pressure Dispatcher Name | Role | Phone | + +------+ + PCP | Unavailable | + +------+ + Reason for Visit + +--------+ + | Reason | Onset | Comments | | | Date | | + +--------+ + | Abdominal pain | 01/01/ | recurrent, right abdominal, ED visit | | | 2005 | | + +--------+ + Encounter Details +--------+ + + + + | Date | Type | Department | Care Team | Description | +--------+ + + + + | 12/25/ | Telephone | General Surgery | Zachariah Padgett, | Abdominal pain | | 2005 | | Bariatric [address] | MD [address] | (recurrent, right | | | | [address] | [address] | abdominal, ED visit) | | | | Mailcode: L223A | [place], [place] | | | | | [facility] | [address] | | | | | [address] [place], [place] | [phone] | | | | | [address] | | | | | | [phone] | | | +--------+ + + + [...] Notes Telephone Encounter - Kenisha Melton - 01/01/2006 6:32 PM PDTPt. recounted symptoms of abdominal pain, right sided, doubling her over and requiring ED visit. Given IV pain med. No studies that support bowel obstruction, continuing to have bowel movements, no melena, no nausea or vomiting. Dr. Smith, PCP, called to order UGI to evaluate symptoms. To call [facility] with results. See Dr. zachariah Padgett in clinic as needed. elephone Encounter - 01/01/2006 6:30 PM PDT Staff Message copied by WILL MELTON on 01/01/2006 at 6:30 PM ------ Message from: ANNA JOHN Created: 12/29/2005 at 8:08 AM Regarding: intestinal distress Contact: Pt is calling to report "really bad gut pain with dry heaves". She is having the pain thro ughout her "abdomen all the way through my back". Pt reported pain at a "10 plus" so I paged you and conferenced the call. Anna Larry elephone Encounter - Anna John - 12/25/2005 8:24 AM PDTPt called again re: message left yesterday (about visit to ER). Is still waiting for a call back. Pt can be reached at home [phone] thanks, larrye documente d in this encounter Plan of Treatment Not on filedocumented as of this encounter Visit Diagnoses Not on filedocumented in this encounter
--- OUTSIDE RECORDS SUMMARY | ~2020-02-29 | XMS | Encounter Summary ---
Demographics + + + | Address | [address] | | | [place] [address] | + + + | Home Phone [...] + +------+ + | Care Electron Beam Welder Name | Role | Phone | + +------+ + | Pedrito Gutierrez MD | PCP | | + +------+ + Reason for Visit + +--------+ + | Reason | Onset | Comments | | | Date | | + +--------+ + | Refill Request | 10/18/ | | | | 2009 | | [...] | | | [facility] | [place], [place] | | | | | [address] | [address] | | | | | [address] | [phone] | | | | | [facility] | | | | | | Physician's | | | | | | Pavilion [place], | | | | | | [place] [address] | | | | | | [phone] | | | +--------+--------+ + + + [...] this encounter Miscellaneous Notes Telephone Encounter - Brandi Tsai - 10/18/2009 1:29 PM PDTLast Office Visit in [facility] was on 10/03/09 at 1:30 pm with NIHARIKA Ng. documented in this encount er Plan of Treatment Not on filedocumented as of this encounter Visit Diagnoses Not on filedocumented in this encounter"
--- OUTSIDE RECORDS SUMMARY | ~2020-02-29 | XMS | Encounter Summary ---
Demographics + + + | Address | [address] | | | [place] [address] | + + + | Home Phone [...] Providers + +------+ + | Care Diesel Powerplant Supervisor Name | Role | Phone | [...]
--- OUTSIDE RECORDS SUMMARY | ~2020-02-29 | XMS | Encounter Summary ---
Demographics + + + | Address | [address] | | | [place] [address] | + + + | Home Phone [...] Team Providers + +------+ + | Care Lifestyle Director Name | Role | Phone | + +------+ + | Petrona Thapa | PCP | | | MD | | | + +------+ + Encounter Details +--------+ + + + + | Date | Type | Department | Care Team | Description | +--------+ + + + + | 11/14/ | Hospital | [facility] | Alanis, | Toe pain, chronic, | | 2019 | Encounter | [facility] [address] [facility] | MD Petrona | left | | | | [address] [place] | [address] [facility] | | | | | [place], [place] | [place] [address] | | | | | [address] | [phone] | | | | | [phone] | | | +--------+ + + + [...] | | | | | : terminal clerk | Decreased | | | | | [...] | | | | | [place] [address] | | | | | | [phone] | | | | | | | [...]
--- OUTSIDE RECORDS SUMMARY | ~2020-02-29 | XMS | Encounter Summary ---
Demographics + + + | Address | [address] | | | [place] [address] | + + + | Home Phone [...] Providers + +------+ + | Care Coal Trammer Name | Role | Phone | + [...] + + | 12/26/ | Refill | [facility] | Alanis, | Medication Refill | | 2017 | | MEDICINE [address] | MD Petrona | | | | | [place], | [address] [facility] | | | | | [place] [address] | [place] [address] | | | | | [phone] | [phone] | | | | | | | [...] | | | | | [place] [address] | | | | | | [phone] | | | | | | | | +--------+---------+ + + + documented as of this encounter Visit Diagnoses Not on filedocumented in this encounter"
--- OUTSIDE RECORDS SUMMARY | ~2020-02-29 | XMS | Encounter Summary ---
Demographics + + + | Address | [address] | | | [place] [address] | + + + | Home Phone [...] Team Providers + +------+ + | Care Warp Tying Machine Knotter Name | Role | Phone | + [...] | | | [place] | [place] [address] | Dx) | | | | [address] | [phone] | | | | | [phone] | | | +--------+ + + + [...] | | | | | [place] [address] | | | | | | [phone] | | | | | | | [...]
--- OUTSIDE RECORDS SUMMARY | ~2020-02-29 | XMS | Encounter Summary ---
Demographics + + + | Address | [address] | | | [place] [address] | + + + | Home Phone [...] Providers + +------+ + | Care Assembly Instructions Writer Name | Role | Phone | [...] of this encounter Progress Notes Interface, Supervisor Train Operations In - 01/12/2005 6:20 AM PDT [id number] [facility] Date: 11/18/2004 Clinic: General [...] patient to send pictures to our financial planning assistant and warehouse distribution manager for evaluation for medicare for panniculectomy. Described [...] seek authorization for panniculectomy. Melisa Thorne / [id number] / [id number] / [id number] / [id number] cc: Joanna Arshad M.D. JONATHAN HITZMAN, MD [facility] [address] [place] [address] Electronically signed by Kenisha Melton 11-26-2004 05:00:55 PM documented i n this encounter Plan of Treatment Not on filedocumented as of this encounter Visit Diagnoses Not on filedocumented in this encounter"
--- OUTSIDE RECORDS SUMMARY | ~2020-02-29 | XMS | Encounter Summary ---
Demographics + + + | Address | [address] | | | [place] [address] | + + + | Home Phone [...] Providers + +------+ + | Care Tool Designer Name | Role | Phone | [...] | | Osteoporosis | i, | [address] | | | | | due to | Petrona | [place], | | | | | sapphireabsorpcecilia | , MD [address] | [place] [address] | | | | | n | [address] | Phone: | | | | | | [place], | [phone] | | | | | | [place] | Fax: | | | | | | [address] | [phone] | | | | | | Phone: | | | | | | | [phone] | | | | | | | Fax: | | | | | | | [phone] | | +--------+--------+ + + + + [...] | | | [place], | [place] [address] | | | | | | [place] | Phone: | | | | | | [address] | [phone] | | | | | | Phone: | Fax: | | | | | | [phone] | [phone] | | | | | | Fax: | | | | | | | [phone] | | +--------+ + + + + [...] | | Osteoporosis | i, | [address] | | | | | due to | Petrona | [place], | | | | | salvador | , MD [address] | [place] [address] | | | | | n | [address] | Phone: | | | | | | [place], | [phone] | | | | | | [place] | Fax: | | | | | | [address] | [phone] | | | | | | Phone: | | | | | | | [phone] | | | | | | | Fax: | | | | | | | [phone] | | +--------+--------+ + + + + Encounter Details +--------+---------+ + + + | Date | Type | Department | Care Team | Description | +--------+---------+ + + + | 02/15/ | Office | [facility] | Emmy-Tajti, | Skin lesion of left | | 2020 | Visit | MEDICINE [address] [place] [address] | MD Petrona | leg (Primary Dx); | | | | [facility] | [address] [facility] | Migraine without | | | | [place] [address] | [place] [address] | aura and without | | | | [phone] | [phone] | status migrainosus, | | | | [...] 1. Skin lesion of left leg - [facility] - AMB Referral 2. Migraine [...] Procedure: COLONOSCOPY; Surgeon: Luther Brito MD; Location: [facility] MEDICAL PROCEDURE UNIT DILATION AND CURETTAGE OF UTERUS ELBOW SURGERY FINGER TRIGGER RELEASE 2002 FINGER TRIGGER RELEASE 2010 GASTRIC BYPASS SURGERY 2004 HYSTERECTOMY 05/14/1980 JOINT REPLACEMENT Bilateral 2006 2007 KNEE ARTHROSCOPY 2005 LAPAROSCOPY 01/27/2015 LAPAROTOMY 2008 ROTATOR CUFF REPAIR 2005 SPINE SURGERY TONSILLECTOMY 1964 UPPER GASTROINTESTINAL ENDOSCOPY N/A 12/18/2017 Procedure: EGD; Surgeon: Luther Brito MD; Location: [facility] MEDICAL PROCEDURE UNIT CURRENT MEDICATIONS [...] Allergen Reactions Ensure Diarrhea Food Diarrhea Lactose Hthprcemqs-Pvn-Wdfj-Codeine Other (See Comments) Balance problems Codeine Sulfate Nausea Only Food Allergy Formula Diarrhea Ensure Levofloxacin Hives, Itching and Rash Butalbital Ropinirole Amitriptyline Hcl Other (See Comments) Confused and questionable for seizures Acyffnfimn-Rrow-Wykzdloc Rash duplicate Sgbckxjnwi-Pqdg-Arrrnfln Hives and Rash Cephalexin Hives Ciprofloxacin Hives [...] 1. Parts of this documentwere created using be2 speech recognition software. As a resu lt, [...] | | | | | [place] [address] | | | | | | [phone] | | | | | | | [...] | | | | First dose on [facility] 10/15/17 at 1215 | | | [...]
--- OUTSIDE RECORDS SUMMARY | ~2020-02-29 | XMS | Encounter Summary ---
Demographics + + + | Address | [address] | | | [place] [address] | + + + | Home Phone [...] Providers + +------+ + | Care Cad Drafter Name | Role | Phone | [...] | | | Metabolism | bypass | [address] | [address] | | | | | Hypovitamino | [address], | Ave | | | | | sis D [address] | [address] | [place], [place] | | | | | nutritional | [place], [place] | [address] | | | | | deficiency | [address] | Phone: | | | | | Other | Phone: | [phone] | | | | | protein-jose manuel | [phone] | Fax: | | | | | nick | Fax: | [phone] | | | | | malnutrition | [phone] | | | | | | Weight | | | | | | | gain | | | | | | | Procedures | | | | | | | CONSULT TO | | | | | | | ENDO | | | | | | | [address] | | | | | | | [address] | | | +--------+--------+ + + + [...] | | | | | | | [facility] | | | | | | | Health and | | | | | | | Healing, | | | | | | | [address] | | | | | | | [place], [place] | | | | | | | [address] | | | | | | | Phone: | | | | | | | [phone] | | | | | | | Fax: | | | | | | | [phone] | +--------+--------+ + + + + Encounter Details +--------+---------+ + + + | Date | Type | Department | Care Team | Description | +--------+---------+ + + + | 09/23/ | Office | Digestive Health | Patricia Banegas, | H/O gastric bypass | | 2013 | Visit | Center at [facility] | SUPERVISOR INTELLIGENCE ANALYST [address] | (Primary Dx); | | | | [address] | [facility] 350 | Hypovitaminosis D; | | | | for Health and | [place], [place] | B12 nutritional | | | | [facility], [address] | [address] | deficiency; Other | | | | [facility] [place] | [phone] | protein-calorie | | | | [address] | | malnutrition; Weight | | | | [phone] | | gain; Teeth decayed | +--------+---------+ [...] make an appt with me Calories approx. 0924-7330 per day when 3 mos or more out from surgery to maintain weight l oss. Calories may need to be adjusted up for individual needs. I recommend eating 5-6 times per day. [employer] Protein 60-100+ gms per day Water: 64 oz per day, your urine should be light yellow. Please let up know if you would like a referral to see the Neurosurgical Nurse. I would be happy to put in referrals to [facility], medical membership is $198 for 3 mos. If you are 12 mos or more out from surgery and would like referral for excess skin removal please let us know. Call us if you have any questions or concerns, or send Lenddo message for non-urgent issue sYudy Banegas RN, [facility] Nurse Practitioner for Bariatric Surgery [facility] | [address] | [place], [place] | [address] | documented in this encounter Progress Notes [...] Hives Mainly in the legs Clindamycin Codeine Qalqwzs-Filnuriygi-Klh-Caff Balance problems Fioricet W/Codeine (Fvjojckmrt-Ghjfbxhtvy-Jzf-Cod) Keflex (Cephalexin) Morphine IM ( only in [facility]) made gut pain worse 08/27/06: [...] replacement 08/2007 right knee Lumbar fusion 05/2008 L5-Z4tpxxve with bone spur removals Appendectomy Cholecystectomy section [...] to POC and will call or send Learndot message if any issues. Start time 1325, end time 1353. I spent a total of 28 minutes face to face with this patie nt. Over 50% of visit was in counseling. ~ 2 Minutes of additional time spent reviewing chart prior to visit and documenting after t his visit. Patricia Banegas RN, ENVIRONMENTAL PROTECTION ECONOMIST- Nurse Practitioner for Bariatric Surgery [facility] | [address] | [place] | [address] | documented in this e ncounter Plan [...]
--- OUTSIDE RECORDS SUMMARY | ~2020-02-29 | XMS | Encounter Summary ---
Demographics + + + | Address | [address] | | | [place] [address] | + + + | Home Phone [...] Team Providers + +------+ + | Care Attic Fans Mechanic Name | Role | Phone | [...] Diabetes & | H/O gastric | Patricia Lopze NP | MD Beto | | | | Metabolism | bypass | [address] | [address] | | | | | Hypovitamino | [address], | Ave | | | | | sis D [address] | [address] | [place], [place] | | | | | nutritional | [place], [place] | [address] | | | | | deficiency | [address] | Phone: | | | | | Other | Phone: | [phone] | | | | | protein-jose manuel | [phone] | Fax: | | | | | nick | Fax: | [phone] | | | | | malnutrition | [phone] | | | | | | Weight | | | | | | | gain | | | | | | | Procedures | | | | | | | CONSULT TO | | | | | | | ENDO | | | | | | | [address] | | | | | | | [address] | | | +--------+--------+ + + + [...] | | | [facility] | [place], [place] | Dx); Hypothyroidism; | | | | [address] | [address] | Essential | | | | [address] | [phone] | hypertension 401.9; | | | | [facility] | | 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 Gets primary care in [place], [place] ([facility] Cintron). Weight leveled out [...] replacement 08/2007 right knee Lumbar fusion 05/2008 L5-R2eaeekp with bone spur removals Appendectomy Cholecystectomy section [...] Hives Mainly in the legs Clindamycin Codeine Mfnyjau-Idkvrpziyw-Zli-Caff Balance problems Fioricet W/Codeine (Zlkkuayfve-Jyvdiundix-Srl-Cod) Keflex (Cephalexin) Morphine IM ( only in [facility]) made gut pain worse 08/27/06: Trial [...] Ly Allred MD R-2, Internal Medicine Pager: [phone] documented in this enco unter Miscellaneous Notes [...] | | If you are | | [facility] | | | | screening for diabetes: [...] + | [facility] - | [address] | [place] [address] | | | [place] | | | [...] + + + + + | [facility] | [address] | [place] [address] | | | SERVICES, SPECIAL | PARK [...] [facility] | [address] | [place] [address] | | | SERVICES, CORE | PARK [...] + + + + + | [facility] | [address] | [place] [address] | | | SERVICES, SPECIAL | PARK [...] by | | | | | | [employer],[address] | | | | | | Abdiaziz Morales, [facility],[place] | | | | | | [address] | | | | | | [phone].[employer]ral[employer]. | | | | | | Get [...] [facility] | [address] | [place], [place] | | | [facility] | | [address] | | + + + + + [...] + + + + + | [facility] | [address] | [place] [address] | | | SERVICES, SPECIAL | [address] [...] + | [facility] | [address] | [place] [address] | | | [place] | | | | + + + [...]
--- OUTSIDE RECORDS SUMMARY | ~2020-02-29 | XMS | Encounter Summary ---
Demographics + + + | Address | [address] | | | [place] [address] | + + + | Home Phone [...] as of this encounter Progress Notes Interface, Programmer Or Analyst In - 12/25/2005 2:07 AM PDT [id number] GEOVANNI [place] Molly [id number] Clinic Date: 12/05/2005 Clinic: General Surgery Clinic PHONE CONSULTATION Subjective: Belinda Meehan has been under our care with a history of gastric bypass and recurrent abdominal pain, nondiagnostic on multiple tests. She was requesting a prescription for oxycodone which will be sent to her home at [address] [place] [address]. Oxycodone 5 mg, 5 to 10 p.o. q.4 h. p.r.n. pain. Please note an additional note that the patient was provided with a prescription is incorrect since the patient did not come to the appropriate location, and the prescription is not locatable at this time from the Admitting Department. The patient will follow up with Dr. Chris Padgett in clinic. Melisa Thorne / [id number] / [id number] / [id number] / [id number] Electronically signed by Kenisha Melton 12-24-2005 01:41:04 PM documented i n this encounter Plan of Treatment Not on filedocumented as of this encounter Visit Diagnoses Not on filedocumented in this encounter"
--- OUTSIDE RECORDS SUMMARY | ~2020-02-29 | XMS | Encounter Summary ---
Demographics + + + | Address | [address] | | | [place] [address] | + + + | Home Phone [...] Team Providers + +------+ + | Care Computed Tomography Scanner Operator Name | Role | Phone | [...] + + | 08/14/ | Telephone | [facility] | Alanis, | Lab Order | | 2017 | | MEDICINE [address] | MD Petrona | | | | | [place], | [address] [facility] | | | | | [place] [address] | [place] [address] | | | | | [phone] | [phone] | | | | | | | [...] order faxed to [facility] in [place]. Left message on patient's voicemail elephone Encounter - Petrona Thapa MD - 11:29 AM PSTOrder printed, please fax to [facility]. elephone Encounter - Adriana Cantor - 08/14/2017 10:56 AM PSTPatient called [...] it to be ordered for [facility] in [place] so she can go ahead and get it drawn so it can be ready and back in time for her upcoming surgery. Please call patient to advise, [phone]. Kim jacobsen his encounter Plan of Treatment +--------+---------+ + + + | Date | Type | Specialty | Care Team | Description | +--------+---------+ + + + | 05/17/ | Office | Internal Medicine | Alanis, | | | 2019 | Visit | | MD Petrona | | | | | | [address] [place] [address] | | | | | | [place] [address] | | | | | | [phone] | | | | | | | | +--------+---------+ + + + documented as of this encounter Visit Diagnoses + + | Diagnosis | + + | Preop examination - Primary Preoperative examination, unspecified | + + documented in this encounter"
--- OUTSIDE RECORDS SUMMARY | ~2020-02-29 | XMS | Encounter Summary ---
Demographics + + + | Address | [address] | | | [place] [address] | + + + | Home Phone [...] [address] | | | | | | [place], [place] | | | | | | [address] | | | | | | [phone] | | | +--------+ + + + [...] Notes Telephone Encounter - Miranda Lambert - 07/31/2006 3:31 PM PSTI asked Tasha to call her ba ck and let her know that Dr Herrera is willing to prescribe once she is stable. He should pre scribe if she is due before I see her for follow up to begin pain management Esperanza tai signed by Miranda Lambert at 07/31/2006 3:31 PM PSTTelephone Encounter - Tasha Nolasco - 07/31/2006 10:03 AM Belinda Sin call today needing to know if you call her PCP and if not when will be able to do th is?. Her # is ..cindy documented in this encounter Plan of Treatment Not on filedocumented as of this encounter Visit Diagnoses Not on filedocumented in this encounter"
--- OUTSIDE RECORDS SUMMARY | ~2020-02-29 | XMS | Encounter Summary ---
Demographics + + + | Address | [address] | | | [place] [address] | + + + | Home Phone [...] Team Providers + +------+ + | Care Kaiawhina Name | Role | Phone | + [...] of this encounter Progress Notes Interface, Assembler Tester In - 12/09/2005 2:08 AM PDT [id number] GEOVANNI SKELTON J [id number] Clinic Date: 11/26/2005 Clinic: General Surgery Clinic [...] with extensive workup. Prescription picked up at [facility] on November 25, 2005, for 50 oxycodone 5 mg. Melisa Thorne / [id number] / [id number] / [id number] / [id number] Electronically signed by Kenisha Melton 12-05-2005 08:28:34 PM documented i n this encounter Plan of Treatment Not on filedocumented as of this encounter Visit Diagnoses Not on filedocumented in this encounter"
--- OUTSIDE RECORDS SUMMARY | ~2020-02-29 | XMS | Encounter Summary ---
[...] + +------+ + | Care In Flight Technician Name | Role | Phone | + +------+ + PCP | Unavailable | + +------+ + Encounter Details +--------+ + + + + | Date | Type | Department | Care Team | Description | +--------+ + + + + | 07/30/ | Hospital | [facility] | Ulysses Genao MD | | | 2011 - | Encounter | [facility] | [address] | | | | | [address] | [address] [place] | | | / | | [place] [address] | 8[address] | | | 2011 | | [phone] | | | +--------+ + + + [...] | | | | | [place] [address] | | | | | | [phone] | | | | | | | | +--------+---------+ + + + documented as of this encounter Visit Diagnoses Not on filedocumented in this encounter"
--- OUTSIDE RECORDS SUMMARY | ~2020-02-29 | XMS | Encounter Summary ---
Demographics + + + | Address | [address] | | | [place] [address] | + + + | Home Phone [...] Providers + +------+ + | Care Manager Local Name | Role | Phone | + [...] | | | [address] | [address] | | | | | [place], [place] | [phone] | | | | | [address] | | | | | | [phone] | | | +--------+ + + + [...] AT,GLUC,CA,AST,ALT,B | | | | | | EDYA TOTAL,ALK | | | | | | [...] [facility] DEPARTMENT OF | [address] | [place] [address] | | | PATHOLOGY | [address] | | | + + + + + | [place] DEPARTMENT OF | [address] [facility] | [place] [address] | | | PATHOLOGY | [address] [...] [facility] DEPARTMENT OF | [address] | [place] [address] | | | PATHOLOGY | [address] | | | + + + + + | [place] DEPARTMENT OF | [address] | [place] [address] | | | PATHOLOGY | [address] | | | + + + + + documented in this encounter Visit Diagnoses Not on filedocumented in this encounter"
--- OUTSIDE RECORDS SUMMARY | ~2020-02-29 | XMS | Encounter Summary ---
Demographics + + + | Address | [address] | | | [place] [address] | + + + | Home Phone [...] Team Providers + +------+ + | Care Beam Machine Operator Name | Role | Phone [...] Rd | | | | | | [place], [place] | | | | | | [address] | | | +--------+ + + + [...]
--- OUTSIDE RECORDS SUMMARY | ~2020-02-29 | XMS | Encounter Summary ---
Demographics + + + | Address | [address] | | | [place] [address] | + + + | Home Phone [...] Providers + +------+ + | Care Dry Heat Cabinet Attendant Name | Role | Phone | + +------+ + | Pedrito Gutierrez MD | PCP | | + +------+ + Reason for Visit + +--------+ + | Reason | Onset | Comments | | | Date | | + +--------+ + | Diarrhea | 10/28/ | has been in the bathroom since one this morning with | | | 2007 | IBS/dumping syndrome symptoms | + +--------+ + Encounter Details +--------+ [...] bathroom | | | | Ave Mailcode: [facility] | [address] | since one this | | | | [facility] | [place], [place] | morning with | | | | and Healing, | [address] | IBS/dumping syndrome | | | | Building [address] | [phone] | symptoms) | | | | Floor [place], [place] | | | | | | [address] | | | | | | [phone] | | | +--------+ + + + [...] Notes Telephone Encounter - Kenisha Melton - 10/29/2007 9:00 AM PDTPt. With diarrhea acute si nce yesterday. No exposure to outside organism per pt. No vomiting. Pain in stomach with acid. On Prevacid. Will add carafate. She feels dehydrated. The PCP office recommended I mmodium. She will see if 24 hour gastroenteritis, may go to ED in [place] if IV fluids ne eded, workup. Faxed over the Carafate to [facility]. elephone Encounter - Precious Tran - 10/29/2007 8:50 AM PDTPt wendi ling in again. States she's doubled over in pain and anything she tries to drink feels like burning acid through her digestive system. Shadia Melgar paged and call transferred to her.E lectronically signed by Precious Tran at 10/29/2007 8:50 AM PDTTelephone Encounter - Sofya García - 10/29/2007 7:58 AM PDT ..Belinda J Shefali - is calling because she has been in the bathroom with diarrhea all Ni ght (since 1am) and is concerned she may be dehydrating, along with being miserable. She st ates she is unable to keep anything down, even water She would like to speak to someone about how she can stay hydrated and feeling better Pt can be reached back at [phone] or if she doesn't answer there, you can reach her on her son's cell, # [phone] Next Appointmet: Next Appointment in [facility] is on 12/30/07 at 1:00 pm with Jose L Padgett MD. Medical History: Past Medical History Diagnosis Date Chronic Abdominal Pain on Oxycodone, NSAIDs, ASA RUQ u/s at OSH reportedly nl panc, bile ducts, liver; ct abd/pel normal, Colorectal Polyps Internal Hemorrhoid Benign Tumor of Colon 2005 endoscopy Vertebral Fracture T7,8,9 Xray T spine 2003 Optic Nerve Hemorrhage left eye Sleep Apnea Kidney Stone Fibromyalgia Intervertebral Disc Herniation 03/31/07 Reduced Vision Pneumonia Surgical History: Past Surgical History Procedure Date Gastric bypass Mayra Padgett wt 278 01/18 Paniculectomy Hx cholecystectomy Hx salpingo-oophorectomy Colonoscopy 03/2006 Hx tonsillectomy Pr d&c after delivery Pr inject trigger point, 1 or 2 Hx knee replacement 02/2007 Left knee Hx hysterectomy Hx section Current listed medications: Current outpatient medications Medication Sig Dispense Refill [...] tablet (40mg) by oral route once daily LEVOTHYROXINE OR takes .05mg daily Multivitamin Oral Tablet 1 tab po [...] procaine 1 % Injection Solution procaine 0.5% 6 cc 0 Procaine HCl 1 % Injection Solution [...] medication of the day 12 1 year VITAMIN C 500 MG CHEWABLE TAB four times a day ziprasidone (GEODON) 20 mg Oral Capsule take 1-2 capsules at bedtime 30 3 Allergies: Allergies Allergen Reactions Keflex (cephalexin) Sulfa (sulfonamides) Codeine Penicillins Clindamycin Cipro (ciprofloxacin) Tramadol Morphine IM ( only in [facility]) made gut pain worse 08/27/06: Trial of oral MSIR caused leg swelling Clarithromycin Hives Mainly in the legs Pharmacy: Pharmacy Preferences: [address] [place] [address] 9AM-9PM MON-FRI / 9AM-7PM SAT / 10AM-6PM SUN Contact information:[phone] (home) documented in this encounter Plan of Treatment Not on filedocumented as of this encounter Visit Diagnoses Not on filedocumented in this encounter"
--- OUTSIDE RECORDS SUMMARY | ~2020-02-29 | XMS | Encounter Summary ---
Demographics + + + | Address | [address] | | | [place] [address] | + + + | Home Phone [...] Team Providers + +------+ + | Care Hog Tender Name | Role | Phone | [...] + + | 01/14/ | Refill | [facility] | Alanis, | Medication Refill | | 2017 | | MEDICINE [address] | MD Petrona | | | | | [place], | [address] [facility] | | | | | [place] [address] | [place] [address] | | | | | [phone] | [phone] | | | | | | | [...] | | | | | [place] [address] | | | | | | [phone] | | | | | | | | +--------+---------+ + + + documented as of this encounter Visit Diagnoses Not on filedocumented in this encounter"
--- OUTSIDE RECORDS SUMMARY | ~2020-02-29 | XMS | Encounter Summary ---
[...] Team Providers + +------+ + | Care Therapist Phys Name | Role | Phone | + [...] [address] | | | | | [facility] | [place], [place] | | | | | and Healing, | [address] | | | | | [facility], [facility] | [phone] | | | | | Floor [place], [place] | | | | | | [address] | | | | | | [phone] | | | +--------+ + + + [...] PDTThe patient will be called by the Pcmh Specialist, her check will be mailed soon, for [...]
--- OUTSIDE RECORDS SUMMARY | ~2020-02-29 | XMS | Encounter Summary ---
Demographics + + + | Address | [address] | | | [place] [address] | + + + | Home Phone [...] Providers + +------+ + | Care Leather Splitter Name | Role | Phone | + +------+ + | Pedrito Gutierrez MD | PCP | | + +------+ + Encounter Details +--------+ + + + + | Date | Type | Department | Care Team | Description | +--------+ + + + + | 01/11/ | Telephone | [facility] | Chris Padgett, | | | 2009 | | [place] [address] | [address] [facility] | | | | | [place] Mailcode: [facility] | [facility] | | | | | [facility] | [place], [place] | | | | | and Healing, | [address] | | | | | Building | [phone] | | | | | Floor [place], [place] | | | | | | [address] | | | | | | [phone] | | | +--------+ + + + [...] that the lab orders be faxed to [facility] in [place], [place] at [phone]. Please call the p t at [phone] once this has been done. Advised caller that they may not receive a call b ack from nurse or provider until the next business day. Caller understands and is agreeable to this. documented in this encou nter Plan of Treatment Not on filedocumented as of this encounter Visit Diagnoses Not on filedocumented in this encounter"
--- OUTSIDE RECORDS SUMMARY | ~2020-02-29 | XMS | Encounter Summary ---
Demographics + + + | Address | [address] | | | [place] [address] | + + + | Home Phone [...] Providers + +------+ + | Care Rotary Drier Name | Role | Phone | [...] | | | | | | | [place], [place] | | | | | | | [address] | | | | | | | Phone: | | | | | | | [phone] | | | | | | | Fax: | | | | | | | [phone] | +--------+--------+ + + + + Encounter Details +--------+---------+ + + + | Date | Type | Department | Care Team | Description | +--------+---------+ + + + | 01/05/ | Office | [facility] | Eliezer Ruano, | Follow-Up | | 2007 | Visit | Center [address] | [address] [facility] | Examination | | | | Avjennifer Mailcode: CH4S | [address] | Following Surgery | | | | [facility] | [place], [place] | (Primary Dx) | | | | and Healing, | [address] | | | | | Building | [phone] | | | | | Floor [place], [place] | | | | | | [address] | | | | | | [phone] | | | +--------+---------+ + + + [...] + + documented in this encounter Progress Eliezer Liu - 01/06/2008 6:27 PM DELFINI performed a history and physical examination o f the patient and discussed her management with the resident. I reviewed the resident francesco guevara and agree with the documented findings and plan of care. ELIEZER RUANO MD [facility] [address] [place] [address] [facility], [address] [place] [address] ejas Crawley - 01/05 1:54 PM PDTS: Pt is here one week postop lysis of adhesions. She is doing well. She i s still having some pain. PE: Midline incision closed with reshma. Reshma removed. There was a small opening of [...]
--- OUTSIDE RECORDS SUMMARY | ~2020-02-29 | XMS | Encounter Summary ---
Demographics + + + | Address | [address] | | | [place] [address] | + + + | Home Phone [...] | back pain | [place], | [address] | | | | | with | [place] | Phone: | | | | | bilateral | [address] | [phone] | | | | | sciatica | Phone: | Fax: | | | | | Procedures | [phone] | [phone] | | | | | MRI Lumbar | Fax: | | | | | | Spine wo | [phone] | | | | | | Contrast [...] + + | 05/17/ | Office | [facility] | Emmy-Tajti, | Lumbar | | 2018 | Visit | MEDICINE [address] | MD Petrona | radiculopathy, acute | | | | [address] [place], | [address] [facility] | (Primary Dx); Acute | | | | [place] [address] | [place] [address] | midline low back | | | | [phone] | [phone] | pain with bilateral | | | [...] COPD (chronic obstructive pulmonary disease) ([facility]) Depression Diarrhea Dumping syndrome Fall at home Fatigue fracture of vertebra Fibromyalgia Full dentures GERD (gastroesophageal reflux disease) Glaucoma Hyperparathyroidism ([facility]) Hypothyroidism IBS (irritable bowel syndrome) Idiopathic scoliosis Leg edema Low back pain Lumbar postlaminectomy syndrome Lumbar radiculopathy primarily right 01/04/2015 Meniere syndrome Migraine with aura Migraines Muscle cramping Muscle spasm Myalgia Nonalcoholic hepatosteatosis Obesity Opioid dependence ([facility]) Orthostatic hypotension OLIVER (obstructive sleep apnea) Osteoarthritis, generalized Osteopenia Osteoporosis Peripheral neuropathy Rheumatoid arthritis ([facility]) Right arm pain 01/04/2015 RLS (restless legs syndrome) S/P lumbar fusion 01/04/2015 Scoliosis Sleep apnea Spondylosis with myelopathy, lumbar region Stroke ([facility]) Syncope Tremor Type II or [...] Procedure: COLONOSCOPY; Surgeon: Luther Brito MD; Location: [facility] MEDICAL PROC[facility]URE [facility] DILATION AND CURETTAGE OF UTERUS ELBOW SURGERY FINGER TRIGGER RELEASE 2002 FINGER TRIGGER RELEASE 2009 GASTRIC BYPASS SURGERY 2004 HYSTERECTOMY 05/14/1980 JOINT REPLACEMENT Bilateral 2007 2008 KNEE ARTHROSCOPY 2005 LAPAROSCOPY 01/27/2015 LAPAROTOMY 2008 ROTATOR CUFF REPAIR 2005 SPINE SURGERY TONSILLECTOMY 1964 UPPER GASTROINTESTINAL ENDOSCOPY N/A 12/18/2017 Procedure: EGD; Surgeon: Luther Brito MD; Location: [facility] MEDICAL PROCEDURE UNIT CURRENT MEDICATIONS [...] (See Comments) Confused and questionable for seizures Xtaxpeqgmu-Qblh-Zyfwhbqj Hives and Rash Cephalexin Hives Ciprofloxacin Hives [...] Note: Parts of this documentwere created using [employer] speech recognition software. As a r esult, [...] | | | | | [place] [address] | | | | | | [phone] | | | | | | | [...] | | First dose on [facility] 10/15/17 at 1215 | | | [...]
--- OUTSIDE RECORDS SUMMARY | ~2020-02-29 | XMS | Encounter Summary ---
Demographics + + + | Address | [address] | | | [place] [address] | + + + | Home Phone [...] Providers + +------+ + | Care Body Service Team Member Name | Role | Phone | + +------+ + | Pedrito Gutierrez MD | PCP | | + +------+ + Reason for Visit + +--------+ + | Reason | Onset | Comments | | | Date | | + +--------+ + | Small bowel capsule | 05/12/ | | | endoscopy procedure | 2005 | | + +--------+ + Encounter Details +--------+ + + + + | Date | Type | Department | Care Team | Description | +--------+ + + + + | 05/12/ | Procedure | [facility] | | Small bowel capsule | | 2005 | | [place] [address] [address] | | endoscopy procedure | | | | [facility] | | | | | | for Health and | | | | | | Healing, [address] | | | | | | [place], [place] | | | | | | [address] | | | | | | [phone] | | | +--------+ + + + [...] Earnest Gomes - 05/12/2006 10:43 AM Jessica Meehan underwent a small bowel capsule en doscopy in the Gastroenterology Clinic at [facility], see transcri bed report. Earnest Ward documented in this encount er Plan of Treatment + + +--------+ + + | Name | Type | Priori | Associated Diagnoses | Order Schedule | | | | ty | | | + + +--------+ + + | ID GI TRACT IMAGING, | Procedures | Routin [...]
--- OUTSIDE RECORDS SUMMARY | ~2020-02-29 | XMS | Encounter Summary ---
Demographics + + + | Address | [address] | | | [place] [address] | + + + | Home Phone [...] Providers + +------+ + | Care Tool Specialist Name | Role | Phone | [...] 2006 | Visit | Rheumatology [address] | SECURITY SERVICES SPECIALIST | Fibromyalgia; | | | | [address] | | Fibromyalgia | | | | Mailcode: OPC5 | | | | | | Outpatient Clinic | | | | | | [facility], | | | | | | [place] [address] | | | | | | [phone] | | | +--------+---------+ + + + [...] this encounter Progress Notes Miguel Caitlin - 05/18/2007 4:02 PM PST Subjective: I [...] however and she has been [facility]. Some of this is [...] 4-5/5 for all major deltoids, biceps, triceps. Housing Quality Standard Inspector slightly weak. Tone is normal. There is [...] cervical spine MRI to be done at [facility]. A few of these patients have [...]
--- OUTSIDE RECORDS SUMMARY | ~2020-02-29 | XMS | Encounter Summary ---
Demographics + + + | Address | [address] | | | [place] [address] | + + + | Home Phone [...] Providers + +------+ + | Care Nurse Sexual Assault Name | Role | Phone | + [...] | Audiology | Diagnoses | Genao, | Dariorey, | | | | | Vertigo of | Ulysses Lau MD | [place], [place] | | | | | central | [address] | CCC-A [address] | | | | | origin | [address] | [address] | | | | | VNG/FAMILYCA | [place], | [address] [facility] | | | | | RE/Emmy | [place] [address] | [place] | | | | | Procedures | Phone: | [phone] Phone: | | | | | [place] | [phone] | [phone] | | | | | SPONTANEOUS | Fax: | Fax: | | | | | [facility] | [phone] | [phone] | | | | | TEST [place] | | | | | | | POSITIONAL | | | | | | | [facility] | | | | | | | TEST [place] | | | | | | | CALORIC | | | | | | | VESTIBULAR | | | | | | | TEST [place] | | | | | | | OPTOKINETIC | | | | | | | [facility] | | | | | | | TEST [place] | | | | | | | OSCILLATING | | | | | | | TRACKING | | | | | | | TEST [place] | | | | | | | SUPPLEMENTAL | | | | | | | ELECTRICAL | | | | | | | TEST [place] | | | | | | | [...] + | 12/07/ | Office | [facility] | Elisabet [place] | Vertigo of central | | 2015 | Visit | AUDIOLOGY AND | [facility] [address] | origin, unspecified | | | | HE[facility] SERVICES | [address] [facility] | laterality (Primary | | | | [address] | [place] [address] | Dx) | | | | [address] [facility] | [phone] | | | | | [place] [address] | | | | | | [phone] | | | +--------+---------+ + + + [...] documented as of this encounter Progress Notes Dariokeyla Elisabet, CCC-A - 12/07/2014 2:12 PM PDTReferring Provider: Ulysses Genao M.D. VNG testing revealed abnormal oculomotor subtests. [place] pike revealed nystagmus when [...] | | | | | [place] [address] | | | | | | [phone] | | | | | | | [...]
--- OUTSIDE RECORDS SUMMARY | ~2020-02-29 | XMS | Encounter Summary ---
Demographics + + + | Address | [address] | | | [place] [address] | + + + | Home Phone [...] Team Providers + +------+ + | Care Host Name | Role | Phone | + +------+ + | Pedrito Gutierrez MD | PCP | | + +------+ + Reason for Visit + +--------+ + | Reason | Onset | Comments | | | Date | | + +--------+ + | Knee pain | 08/31/ | | | | 2006 | | + +--------+ + Encounter Details +--------+ + + + + | Date | Type | Department | Care Team | Description | +--------+ + + + + | 08/31/ | Telephone | Orthopaedics | MoralesDonAngel | Knee pain | | 2006 | | [facility] at [facility] | MD Darrion,PhD [address] | | | | | for Health and | Jayce Mcrae | | | | | Healing [address] | [place], [place] | | | | | [facility] | [address] | | | | | Health and Healing, | [phone] | | | | | [facility] | | | | | | Floor [place], [place] | | | | | | [address] | | | | | | [phone] | | | +--------+ + + + [...] this encounter Miscellaneous Notes Telephone Encounter - Jailyn Harrison - 08/31/2006 4:35 PM PDTPt notifiedElectronically si gned by Jailyn Harrison at 08/31/2006 4:35 PM PDTTelephone Encounter - Tiesha Amor - 08/31/2006 4:10 PM PDTPlease call patient; Dr. Morales has at this time only recommended non-surgical options. Could you please give her my email address? It will be easier for her to ask her questions and get a timely response. [email or web address] Tiesha Amor PA-C elephone Encounter - Katie Coley - 08/31/2006 3:58 PM PDTPlease call-- last seen by 08-26-06 pt . would like to discuss non-surgical options -a lot of unanswered questions Pt's phone:[phone] signed by Katie Coley at 08/31/2006 3:58 PM PDTdoc umented in this encounter Plan of Treatment Not on filedocumented as of this encounter Visit Diagnoses Not on filedocumented in this encounter"
--- OUTSIDE RECORDS SUMMARY | ~2020-02-29 | XMS | Encounter Summary ---
Demographics + + + | Address | [address] | | | [place] [address] | + + + | Home Phone [...] Providers + +------+ + | Care Terrazzo Polisher Name | Role | Phone | [...] as of this encounter Progress Notes Interface, Oven Heater In - 12/11/2005 2:05 AM PDT [id number] GEOVANNI SKELTON Molly [id number] Clinic Date: 11/27/2005 Clinic: Rheumatology Primary Care [...] 6 months. Caitlin Rivera M.S., F.N.P. / [id number] / [id number] / [id number] / [id number] cc: Pedrito Gutierrez M.D. [address] [place] [address] Electronically signed by Caitlin Rivera 12-10-2005 09:27:21 AM documented i n this encounter Plan of Treatment Not on filedocumented as of this encounter Visit Diagnoses Not on filedocumented in this encounter"
--- OUTSIDE RECORDS SUMMARY | ~2020-02-29 | XMS | Encounter Summary ---
Demographics + + + | Address | [address] | | | [place] [address] | + + + | Home Phone [...] Team Providers + +------+ + | Care Improvement Lead Name | Role | Phone | [...] + + | 07/19/ | Telephone | [facility] | [place]is, | Lab Results | | 2019 | | MEDICINE [address] | MD Petrona | | | | | [place], | [address] [place] [address] | | | | | [place] [address] | [place] [address] | | | | | [phone] | [phone] | | | | | | | [...] | | | | | [place] [address] | | | | | | [phone] | | | | | | | | +--------+---------+ + + + documented as of this encounter Visit Diagnoses Not on filedocumented in this encounter"
--- OUTSIDE RECORDS SUMMARY | ~2020-02-29 | XMS | Encounter Summary ---
Demographics + + + | Address | [address] | | | [place] [address] [...] Providers + +------+ + | Care Machine Guide Base Winder Name | Role | Phone | [...] | | | | Clinical Nutrition | [place], [place] | | | | | [address] | [address] | | | | | Loop Mailcode: OPC5 | [phone] | | | | | Outpatient Clinic | | | | | | [facility] | | | | | | [place] [address] | | | | | | [phone] | | | +--------+ + + + [...] Blood Test performed by | | | [facility]. | | + + + + + + + + | Performing | Address | City/State/Zipcode | Phone Number | | Organization | | | | + + + + + | [facility] | [address] | [place] [address] | | | LABORATORY | | | [...] + + + + + | [facility] | [address] | [place] [address] | | | LABORATORY | | | | + + + + + documented in this encounter Visit Diagnoses Not on filedocumented in this encounter"
--- OUTSIDE RECORDS SUMMARY | ~2020-02-29 | XMS | Encounter Summary ---
Demographics + + + | Address | [address] | | | [place] [address] | + + + | Home Phone [...] Team Providers + +------+ + | Care Cardiovascular Tech Name | Role | Phone | [...] as of this encounter Progress Notes Interface, Top And Trim Worker In - 08/22/2005 2:06 AM PST [id number] GEOVANNI Barnes Clinic Date: 07/31/2005 Clinic: Surgery [...] exploratory laparotomy. Plan: Emergency supply approved by Pharmacy in [place]. Quantity 35 was requested and will be filled. I will send a prescription for 40 additional oxycodone 5 mg. The patient will be seen in clinic in one week. Melisa Thorne / [id number] / [id number] / [id number] / [id number] Electronically signed by Kenisha Melton 08-21-2005 07:00:10 PM documented i n this encounter Plan of Treatment Not on filedocumented as of this encounter Visit Diagnoses Not on filedocumented in this encounter"
--- OUTSIDE RECORDS SUMMARY | ~2020-02-29 | XMS | Encounter Summary ---
Demographics + + + | Address | [address] | | | [place] [address] | + + + | Home Phone [...] + +------+ + | Care Director Of Broadcast Name | Role | Phone | + [...] + + | 09/30/ | Refill | [facility] INTER[facility] | Alanis, | Medication Refill | | 2018 | | MEDICINE [address] | MD [place] | | | | | [place], | [address] [facility] | | | | | [place] [address] | [place] [address] | | | | | [phone] | [phone] | | | | | | | [...] [place] | | | | | | [place] [address] | | | | | | [phone] | | | | | | | | +--------+---------+ + + + documented as of this encounter Visit Diagnoses Not on filedocumented in this encounter"
--- OUTSIDE RECORDS SUMMARY | ~2020-02-29 | XMS | Encounter Summary ---
Demographics + + + | Address | [address] | | | [place] [address] | + + + | Home Phone [...] Providers + +------+ + | Care Supervisor Special Services Name | Role | Phone | [...] | 2006 | TRANSCRIPTI | Faculty at [facility] | [address] [facility] | QUESTIONNAIRE | | | ON | for Health and | [facility], [place] | | | | | Healing [address] | [address] | | | | | [facility] | [phone] | | | | | Health and Healing, | | | | | | [facility] | | | | | | [place], [place] | | | | | | [address] | | | | | | [phone] | | | +--------+ + + + [...]
--- OUTSIDE RECORDS SUMMARY | ~2020-02-29 | XMS | Encounter Summary ---
Demographics + + + | Address | [address] | | | [place] [address] | + + + | Home Phone [...] Providers + +------+ + | Care Refrigeration Lead Name | Role | Phone | + +------+ + | Maria Esther Cintron MD | PCP | | + +------+ + Reason for Visit + +--------+ + | Reason | Onset | Comments | | | Date | | + +--------+ + | Refill Request | 11/20/ | | | | 2007 | | + +--------+ + Encounter Details +--------+--------+ + + + | Date | Type | Department | Care Team | Description | +--------+--------+ + + + | 11/20/ | Refill | Comprehensive Pain | Petra [...] [address] | | | | | | [place], [place] | | | | | | [address] | | | | | | [phone] | | | +--------+--------+ + + + [...] Telephone Encounter - Zachary Sampson - 12/05/2011 1:18 PM PDTThis encounter has been admin istratively closed with the authorization of the [facility] Committee. documented in this encount er Plan of Treatment Not on filedocumented as of this encounter Visit Diagnoses Not on filedocumented in this encounter"
--- OUTSIDE RECORDS SUMMARY | ~2020-02-29 | XMS | Encounter Summary ---
Demographics + + + | Address | [address] | | | [place] [address] | + + + | Home Phone [...] Providers + +------+ + | Care Child Support Officer Name | Role | Phone [...] | | | | Clinical Nutrition | [place], [place] | | | | | [address] | [address] | | | | | Loop Mailcode: OPC5 | [phone] | | | | | Outpatient Clinic | | | | | | [facility] | | | | | | [place] [address] | | | | | | [phone] | | | +--------+ + + + [...] | + + + + + | [facility] | [address] | [place] [address] | | | LABORATORY | | | [...] + + + | [facility] | [address] | [place] [address] | | | LABORATORY | | | [...] + + + + + | [facility] | [address] | [place] [address] | | | LABORATORY | | | | + + + + + documented in this encounter Visit Diagnoses Not on filedocumented in this encounter"
--- OUTSIDE RECORDS SUMMARY | ~2020-02-29 | XMS | Encounter Summary ---
Demographics + + + | Address | [address] | | | [place] [address] | + + + | Home Phone [...] Team Providers + +------+ + | Care Library Sales Consultant Name | Role | Phone | + +------+ + | Pedrito Gutierrez MD | PCP | | + +------+ + Encounter Details +--------+ + + + + | Date | Type | Department | Care Team | Description | +--------+ + + + + | 04/17/ | Telephone | [facility] Division of | Carlos Arreola, | | | 2005 | | Gastroenterology/Hep | [address] | | | | | atology [address] | | | | | [address] | [place] [address] | | | | | Mailcode: PV310 | [phone] | | | | | Physician's [facility] | | | | | | [address] | | | | | | [place], [place] | | | | | | [address] | | | | | | [phone] | | | +--------+ + + + [...] Debbi Artis MD. Subject: SILVERBLANCAATT PT [facility] [phone] 4:24 pm 04/17/06. PT CALLED STATING SHE [...]
--- OUTSIDE RECORDS SUMMARY | ~2020-02-29 | XMS | Encounter Summary ---
Demographics + + + | Address | [address] | | | [place] [address] | + + + | Home Phone [...] Providers + +------+ + | Care Service Support Representative Name | Role | Phone | [...] | | | | | [place], | | | | | | [place] [address] | | | | | | [phone] | | +--------+ + + + + [...] | | + +---------+ + + | [facility] DEPARTMENT OF | | | [...] | | + +---------+ + + | [facility] DEPARTMENT OF | | | [...] | | + +---------+ + + | [facility] DEPARTMENT OF | | | | | RADIOLOGY | | | | + +---------+ + + documented in this encounter Visit Diagnoses Not on filedocumented in this encounter"
--- OUTSIDE RECORDS SUMMARY | ~2020-02-29 | XMS | Encounter Summary ---
Demographics + + + | Address | [address] | | | [place] [address] | + + + | Home Phone [...] Providers + +------+ + | Care Grants Specialist Name | Role | Phone | [...] + + | 01/11/ | Office | 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 Belinda Meehan is here today for a [...] until surgery pending 02/13 12/19. DELFINA MOLINA [facility] Mail code CH [facility]P Health and [address] [address] ilyn Wyatt Malissa - 01/12/20 [...]
--- OUTSIDE RECORDS SUMMARY | ~2020-02-29 | XMS | Encounter Summary ---
Demographics + + + | Address | [address] | | | [place] [address] | + + + | Home Phone [...] Providers + +------+ + | Care Senior Formulation Scientist Name | Role | Phone | [...] + + | 11/20/ | Refill | [facility] INTER[facility] | Alanis, | Medication Refill | | 2017 | | MEDICINE [address] | MD [place] | | | | | [place], | [address] [facility] | | | | | [place] [address] | [place] [address] | | | | | [phone] | [phone] | | | | | | | [...] | | | | | [place] [address] | | | | | | [phone] | | | | | | | | +--------+---------+ + + + documented as of this encounter Visit Diagnoses Not on filedocumented in this encounter"
--- OUTSIDE RECORDS SUMMARY | ~2020-02-29 | XMS | Encounter Summary ---
Demographics + + + | Address | [address] | | | [place] [address] | + + + | Home Phone [...] + +------+ + | Care Cable Installer Repairer Helper Name | Role | Phone [...] | | [facility] | [place], [place] | | | | | [address] | [address] | | | | | [address] | [phone] | | | | | [facility] | | | | | | Physician's | | | | | | Pavilion [place], | | | | | | [place] [address] | | | | | | [phone] | | | +--------+--------+ + + + [...]
--- OUTSIDE RECORDS SUMMARY | ~2020-02-29 | XMS | Encounter Summary ---
Demographics + + + | Address | [address] | | | [place] [address] | + + + | Home Phone [...] + +------+ + | Care Sheet Metal Worker Helper Name | Role | Phone [...] + + | 10/18/ | Telephone | [facility] | Ulysses Genao MD | Appointment (MRI) | | 2014 | | OTOLARYNGOLOGY 301 | [address] [place] [address] | | | | | [facility] [address] | [address] [address] | | | | | [place] | [address] | | | | | [address] | | | | | | [phone] | | | +--------+ + + + [...] the orders have been sen t to [facility]. Patient already's has her follow up with . She is seeing Elisabet MCDONOUGH. Telephone Encounter - Reyna Kuo - 10/19/2014 4:02 PM PDTPatient called she states she got an ok from her insurance for the MRI and they told her they would contact our office to let us know this. Any questions please call patient back at [phone] sign ed by Reyna Kuo at 10/19/2014 4:09 PM PDTTelephone Encounter - Roz Morris - 015 4:55 PM PDTPatient called in asking if her appointment at [facility] has been made. Kevin rodriguez [...] Petrona | | | | | | [address] [place] [address] [place] | | | | | | [place] [address] | | | | | | [phone] | | | | | | | | +--------+---------+ + + + documented as of this encounter Visit Diagnoses Not on filedocumented in this encounter"
--- OUTSIDE RECORDS SUMMARY | ~2020-02-29 | XMS | Encounter Summary ---
Demographics + + + | Address | [address] | | | [place] [address] | + + + | Home Phone [...] Team Providers + +------+ + | Care Wallpaper Consultant Name | Role | Phone | [...] + + | 09/25/ | Telephone | [facility] | Alanis, | Other | | 2017 | | MEDICINE [address] | MD [place]ron[place] | | | | | [place], | [address] [facility] | | | | | [place] [address] | [place] [address] | | | | | [phone] | [phone] | | | | | | | [...] 10/02/2017 1:30 PM PDTPrinted rx mailed to [facility]. Patient notified INTe luciana Encounter - Malissa Redd - 09/25/2017 9:21 AM PDTPatient called and would like to know if she can get her CPAP supplies sent to [facility] in [facility]? Currently she is getting them through mail order and they have not been sending her t he correct order and she believes this is why she is not getting any sleep and the cause for her headaches. Please advise. [phone] signed by Malissa Redd at 09/25/2017 9:29 [...] [place] | | | | | | [place] [address] | | | | | | [phone] | | | | | | | | +--------+---------+ + + + documented as of this encounter Visit Diagnoses + + | Diagnosis | + + | OLIVER (obstructive sleep apnea) - Primary Obstructive sleep apnea (adult) (pediatric) | + + documented in this encounter"
--- OUTSIDE RECORDS SUMMARY | ~2020-02-29 | XMS | Encounter Summary ---
Demographics + + + | Address | [address] | | | [place] [address] | + + + | Home Phone [...] Providers + +------+ + | Care Hammer Repairer Name | Role | Phone | [...] + + | 07/16/ | Telephone | [facility] | Alanis, | IV Medication | | 2017 | | MEDICINE [address] | MD [place] | | | | | [place], | [address] [facility] [place] | | | | | [place] [address] | [place] [address] | | | | | [phone] | | | | | | | [...] be process and submitted through her insura pae. elephone [facility] Marlyn Rodriguez PharmD - 07/16/2017 2:22 PM PSTTried calling patient to answer any me dication related questions. No answer, left message requesting call back at [phone]. elephone Encounter - Malissa Redd - 07/16/2017 12:19 PM PSTPatient called and would like a call back about the IV please. Patient is also asking about the orders for her Ultrasound if they have been sent to imaging. [phone] signed by Malissa Redd at 07/16/2017 12:21 PM PSTTelephone En counter - Tuan Snider - 07/16/2017 11:03 AM PSTContact/Caller: Belinda Contact Number: [phone] Provider/Nurse: Emmy Reason for Call: Belinda will like a call back from nurse to discuss IV medicaion. Please ad valeriae. Last Appointment: 07/16/17 Next Appointment: 08/18/17 documented in this encoun ter Plan of Treatment +--------+---------+ + + + | Date | Type | Specialty | Care Team | Description | +--------+---------+ + + + | 05/17/ | Office | Internal Medicine | Alanis, | | | 2019 | Visit | | MD [place]rona | | | | | | [address] [place] [address] [place] | | | | | | [place] [address] | | | | | | [phone] | | | | | | | | +--------+---------+ + + + documented as of this encounter Visit Diagnoses Not on filedocumented in this encounter"
--- OUTSIDE RECORDS SUMMARY | ~2020-02-29 | XMS | Encounter Summary ---
Demographics + + + | Address | [address] | | | [place] [address] | + + + | Home Phone [...] Providers + +------+ + | Care Body Team Member Name | Role | Phone | + +------+ + | Sulaiman Carrera MD | PCP | | + +------+ + Reason for Visit + +--------+ + | Reason | Onset | Comments | | | Date | | + +--------+ + | Lab Results | 07/05/ | | | | 2013 | | [...] | | | [facility] | [place], [place] | | | | | [address] | [address] | | | | | [address] | [phone] | | | | | [facility] | | | | | | Physician's | | | | | | [facility] [place], | | | | | | [place] [address] | | | | | | [phone] | | | +--------+ + + + [...] Notes Telephone Encounter - Zachary Sampson - 11/29/2015 1:00 PM PDTThis encounter has been admin istratively closed with the authorization of the [facility] Committee. elephone Encounter - Charly Shoemaker - 07/05/2013 1:24 PM PSTPatient called she would like to get her lab results from her last draw please give her a call back soila. documented in this encounter Plan of Treatment Not on filedocumented as of this encounter Visit Diagnoses Not on filedocumented in this encounter"
--- OUTSIDE RECORDS SUMMARY | ~2020-02-29 | XMS | Encounter Summary ---
Demographics + + + | Address | [address] | | | [place] [address] | + + + | Home Phone [...] Providers + +------+ + | Care Framing Specialist Name | Role | Phone | + +------+ + | Pedrito Gutierrez MD | PCP | | + +------+ + Reason for Visit + +--------+ + | Reason | Onset | Comments | | | Date | | + +--------+ + | Refill Request | 01/26/ | | | | 2007 | | [...] [address] | | | | | | [place], [place] | | | | | | [address] | | | | | | [phone] | | | +--------+ + + + [...] this encounter Miscellaneous Notes Telephone Encounter - Ailyn Wyatt - 01/26/2007 2:55 PM PDTCalled patient left meassage, well have to call back next week for Rx refills, last refills were 01/11 Electronically sig eysenia by Ailyn Wyatt at 01/26/2007 2:55 PM PDTdocumented in this encounter Plan of Treatment Not on filedocumented as of this encounter Visit Diagnoses Not on filedocumented in this encounter"
--- OUTSIDE RECORDS SUMMARY | ~2020-02-29 | XMS | Encounter Summary ---
Demographics + + + | Address | [address] | | | [place] [address] | + + + | Home Phone [...] Team Providers + +------+ + | Care Raking Machine Operator Name | Role | Phone [...] Pavilion | | | | | | [place], [place] | | | | | | [address] | | | | | | [phone] | | | +--------+ + + + [...]
--- OUTSIDE RECORDS SUMMARY | ~2020-02-29 | XMS | Encounter Summary ---
Demographics + + + | Address | [address] | | | [place] [address] | + + + | Home Phone [...] Team Providers + +------+ + | Care Piano Professor Name | Role | Phone | [...] + + | 06/17/ | Office | [facility] | Emmy-Tajti, | Migraine without | | 2019 | Visit | MEDICINE [address] | MD [place]rona | aura and without | | | | [address] [place], | [address] [place] | status migrainosus, | | | | [place] [address] | [place] [address] | not intractable | | | | [phone] | [phone] | (Primary Dx); | | | | [...] her lower extremities. Had an MRI of [facility] recently showing chronic d egenerative changes and disc bulges in her lower back with no significant stenosis or other acute indications for neurosurgery. Findings were similar to a previous MRI from a few year s ago. She did have back surgery in [facility] on a number of years ago. She [...] Osteoporosis Peripheral neuropathy Rheumatoid arthritis ([facility]) [...] Procedure: COLONOSCOPY; Surgeon: Luther Brito MD; Location: [facility] DILATION AND CURETTAGE OF UTERUS ELBOW SURGERY FINGER TRIGGER RELEASE 2003 FINGER TRIGGER RELEASE 2010 GASTRIC BYPASS SURGERY 2004 HYSTERECTOMY 05/14/1980 JOINT REPLACEMENT Bilateral 2006 2008 KNEE ARTHROSCOPY 2005 LAPAROSCOPY 01/27/2015 LAPAROTOMY 2008 ROTATOR CUFF REPAIR 2005 SPINE SURGERY TONSILLECTOMY 1964 UPPER GASTROINTESTINAL ENDOSCOPY N/A 12/18/2017 Procedure: EGD; Surgeon: Luther Brito MD; Location: [facility] CURRENT MEDICATIONS Current [...] Supplies MIS As directed 100 each 11 levothyroxine (SYNTHROID) [...] (See Comments) Confused and questionable for seizures Qxomllcrlj-Cryr-Uscmahsu Hives and Rash Cephalexin Hives Ciprofloxacin Hives [...] - We'll refer for physical therapy in [place], including aquatic therapy. FOLLOW-UP Return in about 3 months (around 09/15/2018). Note: Parts of this documentwere created using Pulsar speech recognition software. As a r esult, there may be unintended word spelling errors. Every attempt was made to correct the dictation. Shanta Trevino Senior Benefits Manager - 06/17/2018 10:45 AM PSTFormatting of this note might be diff erent from the original. Administrations This Visit cyanocobalamin (VITAMIN B-12) injection 1,000 mcg Admin Date 06/17/2018 Action Given Dose 1000 mcg Route Intramuscular Administered By Shanta Whaley Senior Benefits Manager Pt tolerated B-12 injection well. documented in [...] | | | | | [place] [address] | | | | | | [phone] | | | | | | | [...]
--- OUTSIDE RECORDS SUMMARY | ~2020-02-29 | XMS | Encounter Summary ---
Demographics + + + | Address | [address] | | | [place] [address] | + + + | Home Phone [...] Team Providers + +------+ + | Care Forensic Dna Analyst Name | Role | Phone | [...] Required | | | i, | [address] [place] | | | | | osteoporosis | Sulaiman-Russell | [place], | | | | | without | , MD [address] | [place] [address] | | | | | current | [address] | Phone: | | | | | pathological | [place], | [phone] | | | | | fracture | [place] | Fax: | | | | | | [address] | [phone] | | | | | | Phone: | | | | | | | [phone] | | | | | | | Fax: | | | | | | | [phone] | | +--------+ + + + + [...] + + | 09/20/ | Telephone | [facility] | Alanis, | Medication Orders | | 2018 | | MEDICINE [address] | MD [place] | | | | | [place], | [address] [facility] [place] | | | | | [place] [address] | [place] [address] | | | | | [phone] | [phone] | | | | | | | [...] Reclast was over a year ago at [facility] the exact date is unknown. Will [...] IV medication for her osteoporosis. Please call [facility] to advise, . Electronically signed [...] | | | | | [place] [address] | | | | | | [phone] | | | | | | | [...]
--- OUTSIDE RECORDS SUMMARY | ~2020-02-29 | XMS | Encounter Summary ---
Demographics + + + | Address | [address] | | | [place] [address] | + + + | Home Phone [...] Lab findings, | | 2007 | | [place] [address] | [address] | teaching, guidance, | | | | Ave Mailcode: [facility] | [address] | and counseling (labs | | | | [facility] | [place], [place] | done on 07/01/07) | | | | and Healing, | [address] | | | | | [place] [address] [facility] | [phone] | | | | | [place], [place] | | | | | | [address] | | | | | | [phone] | | | +--------+ + + + [...]
--- OUTSIDE RECORDS SUMMARY | ~2020-02-29 | XMS | Encounter Summary ---
Demographics + + + | Address | [address] | | | [place] [address] | + + + | Home Phone [...] +------+ + | Care Fuel System Maintenance Worker Name | Role | Phone | + +------+ + | uSlaiman Carrera MD | PCP | | + +------+ + Encounter Details +--------+ + + + + | Date | Type | Department | Care Team | Description | +--------+ + + + + | 04/02/ | Hospital | Registration [id number] | Astrid Artis | | | 2005 | Activity | TRACE Wilson MD [address] | | | | | [place] Mailcode: [id number] | [place], [place] | | | | | [place], [place] | [address] | | | | | [address] | [phone] | | | | | [phone] | | | +--------+ + + + [...] M.D./PathologistT:04/06/ | | | | | | 06:[facility] I have reviewed | | | [...] CARE CENTER | [address] | [place] [address] | | | PATHOLOGY | [address] | | | + + + + + | [facility] | [address] | [place] [address] | | | PATHOLOGY | [address] | | | + + + + + documented in this encounter Visit Diagnoses Not on filedocumented in this encounter"
--- OUTSIDE RECORDS SUMMARY | ~2020-02-29 | XMS | Encounter Summary ---
Demographics + + + | Address | [address] | | | [place] [address] | + + + | Home Phone [...] Providers + +------+ + | Care Plaster Patternmaker Name | Role | Phone | + +------+ + | Pedrito Gutierrez MD | PCP | | + +------+ + Reason for Visit + +--------+ + | Reason | Onset | Comments | | | Date | | + +--------+ + | Medication Questions | 03/15/ | | | | 2007 | | [...] | | | [facility] | [place], [place] | | | | | [address] | [address] | | | | | [address] | [phone] | | | | | Physician's | | | | | | Pavilion, 1st floor | | | | | | [facility] [place] | | | | | | [address] | | | | | | [phone] | | | +--------+ + + + [...] Miscellaneous Notes Telephone Encounter - Lisa Mccarthy Buzz - 03/20/2008 3:43 PM PDTPt states that she was seen on Thursday and initial blood work showed a blood clot but none were found via US. I left a vmail for pt on Thursday afternoon to discuss prior message but she was unable to ca ll until this morning. She will follow up with pcp for further eval. elephone Encounter - Beto Meeks - 03/20/2008 2:08 PM PDTMisty, I sent another note to you re: this pt, but I cannot find it. I had asked you to call her to see how she is doing today. It is still appropriate for her to take 1/2 of her prior dos e of Lasix to see if this will be sufficienct. She needs further F/U to assess her persiste nt right leg edema (e.g. R/O DVT), which she can do through her PCP. Thanks, BD elephone Encounter - Astrid Daniels - 03/20/2008 8:51 AM PDTPatient called back returning voice message from Thursday. Re layed below information to patient. She went to hospital on Thursday morning due to leg swelling. Patient had d/c medication as of this point. She stated she felt like "her shoes were 3 sizes too small." She then took 3 tablets of Lasix as they recommended. She has had almost a complete reduction in swelling in left leg however the right leg is still swollen (although it has reduced since Sat). She wanted to note she has also reduced the propranolyl to 80 mg as her blood pressure has been low. She is anticipating return phone call if needed to clarify/elaborate on these iss ues. She will be at home this morning. 8: 52 AM PDTTelephone Encounter - Beto Meeks - 03/16/2008 5:28 PM PDTOur recommendation had b een to cut her dose of Lasix in half and then F/U with her PCP. Is she taking 1/2 the prior dose or did she D/C the drug? Has she been able to see her PCP? A physical assessment of her status would help determine the next step. Please discuss with ehr. Thanks, BDElectron ically signed by Beto Meeks at 03/16/2008 5:28 PM PDTTelephone Encounter - Sol Mcdonald - 03/15/2008 11:13 AM PDTPatient called regarding her water pill medication. Patient stated th at Dr Meesk had her to stop this medication and now her legs are swollen. Please call slick jacobsen at [phone] Thanks documented in this encounte r Plan of Treatment Not on filedocumented as of this encounter Visit Diagnoses Not on filedocumented in this encounter
--- OUTSIDE RECORDS SUMMARY | ~2020-02-29 | XMS | Encounter Summary ---
Demographics + + + | Address | [address] | | | [place] [address] | + + + | Home Phone [...] + + | 04/15/ | Telephone | [facility] | Alanis, | Other (Pain clinic) | | 2018 | | [facility] [address] | MD [place] | | | | | [place], | [address] [facility] | | | | | [place] [address] | [place] [address] | | | | | [phone] | [phone] | | | | | | | [...] day and could not think. I informed p cem that no notes have been received from the pain clinic but could address this at her a ppointment on Thursday am 04/18/19. Patient understands and accepts. Left message on pain clinic's voicemail to fax last couple of chart notesElectronically sig yesenia by Maggie Montoya LPN at 04/15/2019 1:27 PM PDTTelephone Encounter - Farnnie Melgar - 04/15/2019 9:05 AM PDTPatient called states she would like speak to nurse regarding h er visit at the pain clinic. Please call her at [phone]. documented in this encounter Plan of Treatment +--------+---------+ + + + | Date | Type | Specialty | Care Team | Description | +--------+---------+ + + + | 05/17/ | Office | Internal Medicine | Alanis, | | | 2019 | Visit | | MD [place] | | | | | | [address] | | | | | | [place] [address] | | | | | | [phone] | | | | | | | | +--------+---------+ + + + documented as of this encounter Visit Diagnoses Not on filedocumented in this encounter"
--- OUTSIDE RECORDS SUMMARY | ~2020-02-29 | XMS | Encounter Summary ---
Demographics + + + | Address | [address] | | | [place] [address] | + + + | Home Phone [...] Team Providers + +------+ + | Care Cam Specialist Name | Role | Phone | [...] Rd | | | | | | [place], [place] | | | | | | [address] | | | +--------+ + + + [...]
--- OUTSIDE RECORDS SUMMARY | ~2020-02-29 | XMS | Encounter Summary ---
Demographics + + + | Address | [address] | | | [place] [address] | + + + | Home Phone [...] Providers + +------+ + | Care Event Promoter Name | Role | Phone | [...] Medication Refill | | 2017 | | [facility] [address] | MD [place] | | | | | [place], | [address] [place] | | | | | [place] [address] | [place] [address] | | | | | [phone] | [phone] | | | | | | | [...] | | | | | [place] [address] | | | | | | [phone] | | | | | | | | +--------+---------+ + + + documented as of this encounter Visit Diagnoses Not on filedocumented in this encounter"
--- OUTSIDE RECORDS SUMMARY | ~2020-02-29 | XMS | Encounter Summary ---
Demographics + + + | Address | [address] | | | [place] [address] | + + + | Home Phone [...] Providers + +------+ + | Care Coil Placer Name | Role | Phone | [...] | Visit | [facility] [address] | syndrome [address] | | | | [address] | | (Primary Dx); | | | | Physician's | | Fibromyalgia | | | | Pavilion, 4th Floor | | | | | | [place], [place] | | | | | | [address] | | | | | | [phone] | | | +--------+---------+ + + + [...] instructions were given. documented in this encount Plan of Treatment [...]
--- OUTSIDE RECORDS SUMMARY | ~2020-02-29 | XMS | Encounter Summary ---
Demographics + + + | Address | [address] | | | [place] [address] | + + + | Home Phone [...] Providers + +------+ + | Care Ict Customer Support Officer Name | Role | Phone [...] + + | 02/15/ | Office | [facility] | Alanis, | Antibiotic-associate | | 2019 | Visit | MEDICINE [address] | MD John | d diarrhea (Primary | | | | [place], | [address] [place] | Dx); group home | | | | [place] [address] | [place] [address] | prescription opiate | | | | [phone] | [phone] | use; Seasonal | | | | [...] HOPKINS on: 02/15/2019 16:19 Modules accepted: Orders documen holly in this encounter Plan of Treatment +--------+---------+ + + + | Date | Type | Specialty | Care Team | Description | +--------+---------+ + + + | 05/17/ | Office | Internal Medicine | Alanis, | | | 2019 | Visit | | MD John | | | | | | [facility] [address] | | | | | | [place] [address] | | | | | | [phone] | | | | | | | [...] | | | | | mg/dL | [facility] | | | | | | MEDICAL | | | | | | CENTER - | | | | | | LABORATORY | | + + + + + + | eGFR, | >60Comment: GLOMERULAR | >=60 | [facility] | | | non- | FILTRATION | mL/min/1.73m2 | [facility] | | | [place] | RATE,ESTIMATED | | MEDICAL | | | | mL/min/1.41i6Pzxh than | | CENTER - | | [...] | | | | | mg/dL | [facility] | | | | | [...] | [facility] | [address] | [place] | [phone] | | [facility] | | [address] | | | - LABORATORY | | [...] ST. | [address] | [place], [place] | [phone] | | [facility] | | [address] | | | - LABORATORY | | | | + + + + + documented in this encounter Visit Diagnoses + + | Diagnosis | + + | Antibiotic-associated diarrhea - Primary Diarrhea | + + | group home prescription opiate use | + + | [...] | | | | First dose on [facility] 10/15/17 at 1215 | | | [...]
--- OUTSIDE RECORDS SUMMARY | ~2020-02-29 | XMS | Encounter Summary ---
Demographics + + + | Address | [address] | | | [place] [address] | + + + | Home Phone [...] as of this encounter Progress Notes Interface, Fashion Director In - 01/12/2005 8:09 AM PDT [id number] [facility] Date: 10/23/2003 Clinic: Ms. [...] agrees to go ahead. Chris Padgett M.D. ROSA / HS [id number] / [id number] / [id number] / [id number] documented i n this encounter Plan of Treatment Not on filedocumented as of this encounter Visit Diagnoses Not on filedocumented in this encounter"
--- OUTSIDE RECORDS SUMMARY | ~2020-02-29 | XMS | Encounter Summary ---
Demographics + + + | Address | [address] | | | [place] [address] | + + + | Home Phone [...] + +------+ + | Care Senior Service Aide Name | Role | Phone [...] | | | [facility] | [place], [place] | | | | | [address] | [address] | | | | | [address] | [phone] | | | | | Physician's | | | | | | Pavilion, [facility] floor | | | | | | [place], [place] | | | | | | [address] | | | | | | [phone] | | | +--------+ + + + [...] by | | | | | | [facility] | | | | | | [facility] Laboratory. | | | | + + + + + + + + | Specimen | + + | | + + + + + + + | Performing | Address | City/State/Zipcode | Phone Number | | Organization | | | | + + + + + | [facility] | [address] | [place] [address] | | | LABORATORY | | | [...] | pg/mL | | | | | [facility] | | | | | | Laboratory. | | | | + + + + + + + + | Specimen | + + | | + + + + + + + | Performing | Address | City/State/Zipcode | Phone Number | | Organization | | | | + + + + + | [facility] | [address] | [place] [address] | | | LABORATORY | | | [...] [facility] DEPARTMENT OF | [address] | [place] [address] | | | PATHOLOGY | [address] | | | + + + + + | [facility] DEPARTMENT OF | [address] | [place] [address] | | | PATHOLOGY | [address] | | | + + + + + documented in this encounter Visit Diagnoses Not on filedocumented in this encounter"
--- OUTSIDE RECORDS SUMMARY | ~2020-02-29 | XMS | Encounter Summary ---
Demographics + + + | Address | [address] | | | [place] [address] | + + + | Home Phone [...] Team Providers + +------+ + | Care Router Tender Name | Role | Phone | + +------+ + | Pedrito Gutierrez MD | PCP | | + +------+ + Encounter Details +--------+ + + + + | Date | Type | Department | Care Team | Description | +--------+ + + + + | 08/04/ | Telephone | [facility] | Chris Padgett, | | | 2006 | | [place] [address] | [address] [facility] | | | | | Bethanie Mailcode: CH4S | [facility] | | | | | [facility] | [place], [place] | | | | | and Healing, | [address] | | | | | Building | [phone] | | | | | Floor [place], [place] | | | | | | [address] | | | | | | [phone] | | | +--------+ + + + [...] with the ur ology Service here at [facility] for new referrals.Electronically signed by Kenisha Melton at 4:33 PM PSTTelephone Encounter - Angie García - 08/04/2006 10:03 AM PSTPt seen in clinic and was told she should probably see a urologist, so she was calling to get MD names to give to her PCP She can be reached at her home # [phone] Thanks m documented in this encounte r Plan of Treatment Not on filedocumented as of this encounter Visit Diagnoses Not on filedocumented in this encounter"
--- OUTSIDE RECORDS SUMMARY | ~2020-02-29 | XMS | Encounter Summary ---
Demographics + + + | Address | [address] | | | [place] [address] | + + + | Home Phone [...] Providers + +------+ + | Care Field Sales Engineer Name | Role | Phone [...] + + | 04/26/ | Refill | [facility] | Alanis, | Medication Refill | | 2017 | | MEDICINE [address] | MD Petrona | | | | | [place], | [address] [facility] | | | | | [place] [address] | [place] [address] | | | | | [phone] | [phone] | | | | | | | [...] | | | | | [place] [address] | | | | | | [phone] | | | | | | | | +--------+---------+ + + + documented as of this encounter Visit Diagnoses Not on filedocumented in this encounter"
--- OUTSIDE RECORDS SUMMARY | ~2020-02-29 | XMS | Encounter Summary ---
Demographics + + + | Address | [address] | | | [place] [address] | + + + | Home Phone [...] Team Providers + +------+ + | Care Athletics Director Name | Role | Phone | [...] + + | 07/06/ | Telephone | [facility] | Alanis, | Transfer Orders | | 2018 | | [facility] [address] | MD Petrona | | | | | [place], | [address] [place] | | | | | [place] [address] | [place] [address] | | | | | [phone] | [phone] | | | | | | | [...] teresita persaud sent to [facility] in [facility]. Please advise. documented in this encounter [...] | | | | | [place] [address] | | | | | | [phone] | | | | | | | | +--------+---------+ + + + documented as of this encounter Visit Diagnoses Not on filedocumented in this encounter"
--- OUTSIDE RECORDS SUMMARY | ~2020-02-29 | XMS | Encounter Summary ---
Demographics + + + | Address | [address] | | | [place] [address] | + + + | Home Phone [...] Providers + +------+ + | Care Scrap Materials Buyer Name | Role | Phone | [...] | Osteoporosis | [address] | [facility] [address] | | | | | Procedures | Ave | [address] | | | | | CONSULT TO | [place], [place] | Clementina Winkler | | | | | BONE | [address] | Mailcode: | | | | | DENSITOMETRY | Phone: | R[place] | | | | | | [phone] | Naeem [address] | | | | | | Fax: | [place], [place] | | | | | | [phone] | [address] | | | | | | | Phone: | | | | | | | [phone] | | | | | | | Fax: | | | | | | | [phone] | +--------+--------+ + + + + Encounter Details +--------+---------+ + + + | Date | Type | Department | Care Team | Description | +--------+---------+ + + + | 08/23/ | Office | Endocrinology, | Sjh, Bmd Dexa | Other Osteoporosis | | 2007 | Visit | Diabetes and | [address] | (Primary Dx); | | | | Clinical Nutrition | [facility], | Symptomatic | | | | [address] | [place] [address] | Menopausal or Female | | | | [facility] Mailcode: | | Climacteric States; | | | | [address] | | Disorder of Bone | | | | [facility], [place] | | and Cartilage, | | | | [address] | | Unspecified | | | | [phone] | | | +--------+---------+ + + + [...] | | + +---------+--------+ + + | [place] DXA BONE | Imaging | Routin | [...]
--- OUTSIDE RECORDS SUMMARY | ~2020-02-29 | XMS | Encounter Summary ---
Demographics + + + | Address | [address] | | | [place] [address] | + + + | Home Phone [...] Team Providers + +------+ + | Care Integrated Pest Management Technician Name | Role | Phone [...] test & | | 2007 | | [place] [address] | [address] | stool order); | | | | Ave Mailcode: [facility] | [facility] | Diarrhea | | | | [facility] | [place], [place] | | | | | and Healing, | [address] | | | | | [place] [address], [facility] | [phone] | | | | | [place], [place] | | | | | | [address] | | | | | | [phone] | | | +--------+ + + + [...] [facility] Committee. elephone Encounter - Kenisha Sams - 02/22/2008 8:42 AM PDTThese orders were faxed over to Dr. Smith.Scott moreau signed by Kenisha Melton at 02/22/2008 8:42 AM PDTTelephone Encounter - Diaz Macedo - 02/16/2008 10:04 AM PDTBelinda Meehan calling to get her orders faxed to her P CP . She states she spoke with Shadia Melton-MAINTENANCE ASSISTANT to have Blood test & Stool sample request for her diarrhea order. She would like to be notified when this order has been faxed . Pain Scale: na Recent Surgery or Procedure: no Pharmacy: Pharmacy Preferences: [facility] [address] [place] [address] 9AM-9PM MON-FRI / 9AM-7PM SAT / 10AM-6PM SUN documented in this enc ounter Plan of Treatment Not on filedocumented as of this encounter Visit Diagnoses Not on filedocumented in this encounter"
--- OUTSIDE RECORDS SUMMARY | ~2020-02-29 | XMS | Encounter Summary ---
Demographics + + + | Address | [address] | | | [place] [address] | + + + | Home Phone [...] Providers + +------+ + | Care Retail Special Event Associate Name | Role | Phone | + +------+ + | Petrona Thapa | PCP | | | MD | | | + +------+ + Reason for Visit + + + | Reason | Comments | + + + | Pain Management | [facility], Was switched to Simran Dash | | | Transbuccal every 12 hrs | + + + | Results, Imaging | | + + + Encounter Details +--------+---------+ + + + | Date | Type | Department | Care Team | Description | +--------+---------+ + + + | 06/01/ | Office | [facility] | Alanis, | Fibromyalgia | | 2017 | Visit | MEDICINE [address] | MD Petrona | (Primary Dx); | | | | [address] [place], | [address] [place] | Acquired | | | | [place] [address] | [place] [address] | hypothyroidism; | | | | [phone] | [phone] | Chronic bilateral | | | | [...] Pain Management Sees pain clinic in [facility], Was switched to Belbuca 150mc Transbuccal every 12 hrs Results, Imaging HPI Belinda Meehan is a 57 y.o. y/o female who presents today for f/u for several issues: Has had a visit w/ the pain in the [place], [place], and they gave her a trial [...] and has been on monthly B12 in [facility] for the last several months. REVIEW [...] Fatigue fracture of vertebra Fibromyalgia Glaucoma Hyperparathyroidism ([facility]) Hypothyroidism IBS [...] (See Comments) Confused and questionable for seizures Rufhgiizit-Zvxk-Apaapiyv Cephalexin Hives Ketorolac Hives Morphine Swelling Tramadol Hcl Nausea Only Iosbanpaxd-Ckmb-Dblzoaib Hives and Rash Ciprofloxacin Hives and Rash [...] Note: Parts of this documentwere created using [employer] speech recognition software. As a r esult, [...] | | | | | [place] [address] | | | | | | [phone] | | | | | | | [...]
--- OUTSIDE RECORDS SUMMARY | ~2020-02-29 | XMS | Encounter Summary ---
Demographics + + + | Address | [address] | | | [place] [address] | + + + | Home Phone [...] Providers + +------+ + | Care Field Property Loss Specialist Name | Role | Phone | + +------+ + | Maria Esther Cintron MD | PCP | | + +------+ + Encounter Details +--------+ + + + + | Date | Type | Department | Care Team | Description | +--------+ + + + + | 10/27/ | Telephone | [facility] | Chris Padgett, | | | 2008 | | [place] [address] | [address] [facility] | | | | | Bethanie Mailcode: CH4S | Naeem Mcrae | | | | | [facility] | [place], [place] | | | | | and Healing, | [address] | | | | | Building , 6th | [phone] | | | | | Floor [place], [place] | | | | | | [address] | | | | | | [phone] | | | +--------+ + + + [...] Telephone Encounter - Nuris Cardenas Rn - 10/27/2008 4:27 PM PDTUpper abdominal pain and dif ficulty breathing of fairly sudden onset with no know triggers for past 2 hours. Pt advised to call 911. She is agreeable. elephone Encounter - Madelyn Rosas - 10/27/2008 3:17 PM PDTHaving severve u pper abdominal pain .. Pain scale of 10 .. Having a hard time breathing..she is taking caraf ate 1g 4 times a day -is not helping with the Pain. Please call and adviseElectronically s igned by Madelyn Rosas at 10/27/2008 3:17 PM PDTdocumented in this encounter Plan of Treatment Not on filedocumented as of this encounter Visit Diagnoses Not on filedocumented in this encounter"
--- OUTSIDE RECORDS SUMMARY | ~2020-02-29 | XMS | Encounter Summary ---
Demographics + + + | Address | [address] | | | [place] [address] | + + + | Home Phone [...] Providers + +------+ + | Care Financial Adviser Name | Role | Phone | [...] + + | 03/02/ | Office | [facility] | Alanis, | Neck pain on right | | 2018 | Visit | MEDICINE [address] | MD Petrona | side (Primary Dx); | | | | [address] [place], | [address] [place] | Primary stabbing | | | | [place] [address] | [place] [address] | headache; | | | | [phone] | [phone] | Non-intractable | | | | | [...] Medical Student - 03/02/2018 9:30 AM PDT [facility] PROGRESS NOTE Pt. Name/Age/: Belinda Meehan 58 y.o. 1960 Med. Record Number: [id number] HPI: Belinda Meehan is a 58 y.o. [...] with myelopathy, lumbar region Stroke ([facility]) Syncope Tremor Type II or unspecified type diabetes mellitus with other specified manifestations, not stated as uncontrolled 05/04/2017 Vitamin D deficiency Past Surgical History: Procedure Laterality Date ADENOIDECTOMY APPENDECTOMY BREAST LUMPECTOMY Left 2002 CARPAL TUNNEL RELEASE 2001 SECTION CHOLECYSTECTOMY 2004 COLONOSCOPY N/A 12/18/2017 Procedure: COLONOSCOPY; Surgeon: Luther Brito MD; Location: [facility] MEDICAL PROCEDURE UNIT DILATION AND CURETTAGE OF UTERUS ELBOW SURGERY FINGER TRIGGER RELEASE 2002 FINGER TRIGGER RELEASE 2009 GASTRIC BYPASS SURGERY 2004 HYSTERECTOMY 05/14/1980 JOINT REPLACEMENT Bilateral 2007,2008 KNEE ARTHROSCOPY 2005 LAPAROSCOPY 01/27/2015 LAPAROTOMY 2008 ROTATOR CUFF REPAIR 2005 SPINE SURGERY TONSILLECTOMY 1964 UPPER GASTROINTESTINAL ENDOSCOPY N/A 12/18/2017 Procedure: EGD; Surgeon: Luther Brito MD; Location: [facility] MEDICAL PROCEDURE UNIT Allergies Allergen Reactions Levofloxacin Hives,Itching,Rash Abihgnziru-Wcna-Ycwchqst Hives,Rash Cephalexin Hives Ciprofloxacin Hives,Rash Clarithromycin Hives,Rash [...] | | | | | [place] [address] | | | | | | [phone] | | | | | | | [...] | mL/min/1.73m2 | NATHAN | | | Barb[place] | RATE,ESTIMATED | | MEDICAL | | | | mL/min/1.96b1Vtth than | | CENTER - | | [...] + | [facility] | [address] | [place] | [phone] | | [facility] | | [address] | | | - LABORATORY | | [...] | + + + + + | [facility] | [address] | [place] | [phone] | | [facility] | | [address] | | | - LABORATORY | | [...] + | [facility] | [address] | [place] | [phone] | | [facility] | | [address] | | | - LABORATORY | | [...]
--- OUTSIDE RECORDS SUMMARY | ~2020-02-29 | XMS | Encounter Summary ---
Demographics + + + | Address | [address] | | | [place] [address] | + + + | Home Phone [...] Providers + +------+ + | Care Veneer Splicer Name | Role | Phone | + +------+ + | Petrona Thapa | PCP | | | MD | | | + +------+ + Reason for Visit + +--------+ + | Reason | Onset | Comments | | | Date | | + +--------+ + | Medication Question | 03/03/ | | | | 2017 | | + +--------+ + Encounter Details +--------+ + + + + | Date | Type | Department | Care Team | Description | +--------+ + + + + | 03/03/ | Telephone | [facility] | Alanis, | Medication Question | | 2017 | | MEDICINE [facility] [address] | MD Petrona | | | | | [place], | [address] | | | | | [place] [address] | [place] [address] | | | | | [phone] | [phone] | | | | | | | [...] this encounter Miscellaneous Notes Addendum Note - Maggie Montoya LPN - 03/03/2018 3:47 PM PDT Addended by: MAGGIE MONTOYA on: 03/03/2018 15:47 Modules accepted: Orders elephone Encounter - Maggie Montoya LPN - 03/03/2018 3:38 PM PDTCall returned to [place] at the [facility]. I informed her that feels that, although the rx for the Clonidine is a good id ea, it was not appropriate for the patient, due high fall risk. I have also call [facility] and gave verbal order to run the Imitrex for #9 tabs/30 days and sig changed . Will run this through with new quantity and sig change for insurance purpose. Left message on patient's voicemail regarding this message. FYI. elephone Encounter - Maggie Montoya LPN - 03/03/2018 10:55 AM PDTSpoke to patient states that she got out of bed wrong this am and bent her toes back, sta nader had a previous surgery with pens in her left foot and her foot is turning black. I [facility]. Will call her back later this afternoon re garding the previous message. Patient did convey that she really doesn't know if wanting to take another blood pressure medication, but will if you feel that its necessary. Did state t hat her headache is better today. Please advise.Electronically signed by TRUDI Infante t 03/03/2018 10:59 AM PDTTelephone Encounter - Adriana Cantor - 03/03/2018 9:55 AM PDTR eceived a call from Belinda regarding her medication and was wanting to know if the medicatio n could be pushed through. Patient also stated she believes she might have broken a few toe s this morning when getting out of bed, possibly the top of her foot. Patient stated she do es not want to go to the ER or urgent care and wait for several hours and would like a call back to advise. Patient stated she is currently on the way home and will be home in about 3 -1/2 hours. Please call patient to advisjennifer, . elephone Encounter - Adriana Cantor - 03/03/2018 9: 08 AM PDTReceived a call from Ju Lynch with [facility] wanting to speak with the nurse. Ju stated an order for sumatriptan was written for yesterday but it need s a prior authorization so she was wondering if they might want to try clonidine 0.1 mg twic e a day as they have had success with that and it might help the patient while waiting for t he authorization. Please call Ju to gwen, , extension [phone]. documented in this encounter Plan of Treatment +--------+---------+ + + + | Date | Type | Specialty | Care Team | Description | +--------+---------+ + + + | 05/17/ | Office | Internal Medicine | Alanis, | | | 2019 | Visit | | MD Petrona | | | | | | [facility] [address] | | | | | | [place] [address] | | | | | | [phone] | | | | | | | | +--------+---------+ + + + documented as of this encounter Visit Diagnoses Not on filedocumented in this encounter"
--- OUTSIDE RECORDS SUMMARY | ~2020-02-29 | XMS | Encounter Summary ---
Demographics + + + | Address | [address] | | | [place] [address] | + + + | Home Phone [...] Providers + +------+ + | Care Sports Health Club Membership Advisors Name | Role | Phone | + [...] | | | | | hemorrhoid | [place], [place] | [address] | | | | | Rectal pain | [address] | [facility] | | | | | Procedures | | Rd [place], | | | | | CONSULT TO | | [place] | | | | | [place] | | [address] | | | | | SURGERY | | Phone: | | | | | | | [phone] | | | | | | | Fax: | | | | | | | [phone] | +--------+--------+ + + + + Encounter Details +--------+---------+ + + + | Date | Type | Department | Care Team | Description | +--------+---------+ + + + | 10/03/ | Office | Digestive Health | Bandar Valenzuela, | Anal or Rectal Pain | | 2008 | Visit | Center at [facility] [address] | [address] | (Primary Dx) | | | | [address] [place] | [facility] [address] | | | | | for Health and | [place], [place] | | | | | [facility] [address] | [address] | | | | | [place], [place] | [phone] | | | | | [address] | | | | | | [phone] | | | +--------+---------+ + + + [...] stool. She had a normal colonoscopy at [facility] in 2005 PMH: Past Medical History Diagnosis [...] 08/2007 right knee Hx lumbar fusion 05/2008 L5-O3ozvnch with bone spur removals Hx appendectomy Hx [...] swelling Clarithromycin Hives Mainly in the legs Ljmonnt-dzsykdfpkg-uqh-caff Balance problems Amitriptyline Grand mal seizures SH: [...] + + +--------+ + + | [facility] | Procedures | Routin | Anal or Rectal | Ordered: 10/05/2008 | | ANOSCOPY | | e | Pain | | + + +--------+ + + documented as of this encounter Visit Diagnoses + + | Diagnosis | + + | Anal or rectal pain - Primary | + + documented in this encounter
--- OUTSIDE RECORDS SUMMARY | ~2020-02-29 | XMS | Encounter Summary ---
Demographics + + + | Address | [address] | | | [place] [address] | + + + | Home Phone [...] Team Providers + +------+ + | Care Latex Ribbon Machine Operator Name | Role | Phone [...] as of this encounter Progress Notes Interface, Tax Technician In - 01/12/2006 1:16 AM PDTCLINIC DATE: 05/24/2002 NEUROMUSCULAR CLINIC [facility] CARE PROVIDER: Pedrito Gutierrze M.D., [place], [place]. REFERRING PROVIDER : Issac Meeks M.D., [facility] Endocrinology. REASON FOR CONSULTATION: Dr. Meeks [...] has some mild associated weakness in her input output clerk. She was told she had carpal tunnel [...] use drugs. 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 She is applying for disability compensation. She lives in [facility] and is currently undergoing a divorce. [...] position sense throughout. Coordination: Fine finger movements, ghvavh-yl-ziip, rapid alternating movements, and udcs-qj-cecp maneuvers are intact though rrlykw-nm-uftd is limited by poor depth perception due [...] Irving Pete M.D. Neurology/Neuromuscular Fellow [employer] / SHARIF [id number] / [id number] / [id number] / cc: Issac Meeks M.D. [facility] Endocrinology Pedrito Gutierrez M.D. [address] [place] [id number] signed by Interface, Tax Technician In at 01/12/2006 1:1 6 AM PDTdocumented in this encounter Plan of Treatment Not on filedocumented as of this encounter Visit Diagnoses Not on filedocumented in this encounter
--- OUTSIDE RECORDS SUMMARY | ~2020-02-29 | XMS | Encounter Summary ---
Demographics + + + | Address | [address] | | | [place] [address] | + + + | Home Phone [...] Team Providers + +------+ + | Care Telecommunication Tower Technician Name | Role | Phone | + +------+ + | Petrona Thapa | PCP | | | MD | | | + +------+ + Reason for Visit + +--------+ + | Reason | Onset | Comments | | | Date | | + +--------+ + | Cold-like Symptoms | 08/19/ | | | | 2019 | | + +--------+ + Encounter Details +--------+ + + + + | Date | Type | Department | Care Team | Description | +--------+ + + + + | 08/19/ | Telephone | [facility] | Alanis, | Cold-like Symptoms | | 2018 | | MEDICINE [address] | MD Petrona | | | | | [place], | [address] | | | | | [place] [address] | [place] [address] | | | | | [phone] | [phone] | | | | | | | [...] call for advise from nurse. Please call [phone] . documented in this encounter Plan of [...] | | | | | [place] [address] | | | | | | [phone] | | | | | | | | +--------+---------+ + + + documented as of this encounter Visit Diagnoses Not on filedocumented in this encounter"
--- OUTSIDE RECORDS SUMMARY | ~2020-02-29 | XMS | Encounter Summary ---
Demographics + + + | Address | [address] | | | [place] [address] | + + + | Home Phone [...] + +------+ + | Care Set Up Mold Technician Name | Role | Phone | [...] + + | 05/01/ | Refill | [facility] | Alanis, | Medication Refill | | 2017 | | MEDICINE [address] | MD Petrona | | | | | [place], | [address] | | | | | [place] [address] | [place] [address] | | | | | [phone] | | | | | | | [...] | | | | | [place] [address] | | | | | | [phone] | | | | | | | | +--------+---------+ + + + documented as of this encounter Visit Diagnoses Not on filedocumented in this encounter"
--- OUTSIDE RECORDS SUMMARY | ~2020-02-29 | XMS | Encounter Summary ---
Demographics + + + | Address | [address] | | | [place] [address] | + + + | Home Phone [...] + +------+ + | Care Data Entry Analyst Name | Role | Phone | [...] + + | 03/30/ | Telephone | [facility] | Alanis, | Appointment | | 2018 | | MEDICINE [address] | MD Petrona | | | | | [place], | [address] [facility] | | | | | [place] [address] | [place] [address] | | | | | [phone] | | | | | | | [...] | | | | | [place] [address] | | | | | | [phone] | | | | | | | | +--------+---------+ + + + documented as of this encounter Visit Diagnoses Not on filedocumented in this encounter"
--- OUTSIDE RECORDS SUMMARY | ~2020-02-29 | XMS | Encounter Summary ---
Demographics + + + | Address | [address] | | | [place] [address] | + + + | Home Phone [...] Team Providers + +------+ + | Care Pulper Name | Role | Phone | + [...] | | | Mailcode: PV240 | [place] [address] | | | | | [facility] | [phone] | | | | | [place], [place] | | | | | | [address] | | | | | | [phone] | | | +--------+ + + + [...]
--- OUTSIDE RECORDS SUMMARY | ~2020-02-29 | XMS | Encounter Summary ---
Demographics + + + | Address | [address] | | | [place] [address] | + + + | Home Phone [...] Providers + +------+ + | Care Video Network Engineer Name | Role | Phone | [...] Naeem Mcrae | | | | | [facility] | [place], [place] | | | | | and [place], | [address] | | | | | [place] [address] | [phone] | | | | | [place], [place] | | | | | | [address] | | | | | | [phone] | | | +--------+ + + + [...] [address] [place] [address] 9AM-9PM MON-FRI / 9AM-7PM SAT / 10AM-6PM [...]
--- OUTSIDE RECORDS SUMMARY | ~2020-02-29 | XMS | Encounter Summary ---
Demographics + + + | Address | [address] | | | [place] [address] | + + + | Home Phone [...] Team Providers + +------+ + | Care Energy Project Manager Name | Role | Phone [...] + + | 12/20/ | Office | [facility] | Ulysses Genao MD | Meniere's disease of | | 2019 | Visit | OTOLARYNGOLOGY [address] | [address] [place] | right ear (Primary | | | | [facility] [address] | [address] [place] | Dx); Benign | | | | [place] | [address] | paroxysmal | | | | [address] | | positional vertigo, | | | | [phone] | | unspecified | | | | [...] tympanog ainsley were A tympanograms. Her speech pot runner threshold is 30 dB in the right [...] sched uled for a Tayler maneuver in [place]. 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
--- OUTSIDE RECORDS SUMMARY | ~2020-02-29 | XMS | Encounter Summary ---
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 female [facility] Comprehensive Pain [...] drawing has be completed, which I reviewed. 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 Urology evaluation for ur [...] Collection Time Resulting Agency 05/25/2007 4:06 PM [facility] DEPARTMENT OF RADIOLOGY Component Results MR CERVICAL [...] Episode, Moderate 309.24 Adjustment Disorder with Anxiety Belnida Meehan is a pleasant 47yo obese female [...] [facility] Mail code CH 4P [facility] [address] [place] [address] Ailyn Bello - 08/13/19 08 8:52 [...]
--- OUTSIDE RECORDS SUMMARY | ~2020-02-29 | XMS | Encounter Summary ---
Demographics + + + | Address | [address] | | | [place] [address] | + + + | Home Phone [...] Providers + +------+ + | Care Project Superintendent Name | Role | Phone | [...] + + | 03/05/ | Telephone | [facility] | Alanis, | Vomiting | | 2017 | | MEDICINE [address] | MD Petrona | | | | | [place], | [address] [facility] | | | | | [place] [address] | [place] [address] | | | | | [phone] | [phone] | | | | | | | [...] on the . Called Tayo Mcdonough in [facility] and spoke to Jung letting him know that we are n ot submitting a PA request at this time since patient is following up with Dr. Vivas. [facility] ed prior auth request today. TTelephone Encounter - Mayda Montoya - 03/10/2018 4:46 PM PDTReceived prior auth request [facility] regarding Phenadoz (promethazine). Noted on request that insurance requested to try: Prochlorperazine Granisetron HCL Would these be appropriate for patient or would you like to continue with the Phenadoz. Rich nk you. elephone Encounter - Lisa Hurley RN - 03/05/2018 4:43 PM PDTCalled patient back. Her insurance won't cov er the Phenergan suppositories either. Called Tayo Mcdonough in [place] and spoke with [employer]. Both the Zofran and Phenergan suppository orders [...] back . Patient can be reached at [phone] signed by Sia Bai at 03/05/2018 12:24 [...] Thapa MD at 03/05/2018 10:46 AM PDTTelephone Lisa Swan RN - 03/05/2018 9:21 AM PDTCalled and spoke with patient. Says she we nt to the ER at [facility] yesterday by ambulance due to severe N/V, [...] can hardly make it to her bathroom. [facility] called her this morning to F/U on [...] | | | | | [place] [address] | | | | | | [phone] | | | | | | | | +--------+---------+ + + + documented as of this encounter Visit Diagnoses Not on filedocumented in this encounter"
--- OUTSIDE RECORDS SUMMARY | ~2020-02-29 | XMS | Encounter Summary ---
Demographics + + + | Address | [address] | | | [place] [address] | + + + | Home Phone [...] Team Providers + +------+ + | Care Display Decorator Name | Role | Phone | [...] + + | 05/25/ | Refill | [facility] | Alanis, | Medication Refill | | 2016 | | MEDICINE [address] | MD Petrona | | | | | [place], | [address] [facility] | | | | | [place] [address] | [place] [address] | | | | | [phone] | [phone] | | | | | | | [...] | | | | | [place] [address] | | | | | | [phone] | | | | | | | | +--------+---------+ + + + documented as of this encounter Visit Diagnoses Not on filedocumented in this encounter"
--- OUTSIDE RECORDS SUMMARY | ~2020-02-29 | XMS | Encounter Summary ---
Demographics + + + | Address | [address] | | | [place] [address] | + + + | Home Phone [...] Providers + +------+ + | Care Test Baker Name | Role | Phone | + +------+ + | Pedrito Gutierrez MD | PCP | | + +------+ + Reason for Visit + +--------+ + | Reason | Onset | Comments | | | Date | | + +--------+ + | Refill Request | 08/23/ | | | | 2009 | | + +--------+ + Encounter Details +--------+--------+ + + + | Date | Type | Department | Care Team | Description | +--------+--------+ + + + | 08/23/ | Refill | [facility] | Beto Meeks MD | Refill Request | | 2009 | | [facility] | [address] | | | | | [facility] | [place], [place] | | | | | [address] | [address] | | | | | [address] | [phone] | | | | | [facility] | | | | | | Physician's | | | | | | Pavilion [place], | | | | | | [place] [address] | | | | | | [phone] | | | +--------+--------+ + + + [...] Notes Telephone Encounter - Juana Doshi - 08/23/2009 2:35 PM PSTLast Office Visit in [facility] was on 07/25/08 at 1:20 pm with Beto Meeks MD. No future appointments scheduled in [facility]. documented in this [facility] Plan of Treatment Not on filedocumented as of this encounter Visit Diagnoses Not on filedocumented in this encounter"
--- OUTSIDE RECORDS SUMMARY | ~2020-02-29 | XMS | Encounter Summary ---
Demographics + + + | Address | [address] | | | [place] [address] | + + + | Home Phone [...] + +------+ + | Care Motion Picture Narrator Name | Role | Phone | [...] + + | 05/18/ | Telephone | [facility] | Alanis, | Referral | | 2017 | | MEDICINE [address] | MD [place]rona | | | | | [place], | [address] [facility] | | | | | [place] [address] | [place] [address] | | | | | [phone] | [phone] | | | | | | | [...] PSTPatient notified that ref erral resubmitted to [facility] in [place], [place]. Patient will call to schedule appt in the next few days P STTelephone Encounter - Adriana Cantor - 05/18/2018 1:44 PM PSTPatient called wanting t o speak with the nurse. Patient stated a referral was placed for her for an MRI but she was calling to see if it had been switched so she could have it done in [place]. Please call patient to advise, . documented [...] | | | | | [place] [address] | | | | | | [phone] | | | | | | | | +--------+---------+ + + + documented as of this encounter Visit Diagnoses Not on filedocumented in this encounter"
--- OUTSIDE RECORDS SUMMARY | ~2020-02-29 | XMS | Encounter Summary ---
Demographics + + + | Address | [address] | | | [place] [address] | + + + | Home Phone [...] Team Providers + +------+ + | Care Survey Methodologist Name | Role | Phone | + [...] [facility] | [place], [place] | Bypass Surgery November | | | | [address] | [address] | 2003; | | | | [address] | [phone] | Hypothyroidism; | | | | [facility] | | Essential | | | | Physician's | | hypertension [address]; | | | | [facility] [place], | | Iron Deficiency | | | | [place] [address] | | | | | | [phone] | | | +--------+---------+ + + + [...] (Ciprofloxacin) Tramadol Morphine IM ( only in [facility]) made gut pain worse 08/27/06: [...] 300 mg) by oral route once daily abfpesuqlw-luzzhiqiseddf-ptbsasuq (FIORICET) 50-325-40 mg Oral Tablet take 2 [...]
--- OUTSIDE RECORDS SUMMARY | ~2020-02-29 | XMS | Encounter Summary ---
Demographics + + + | Address | [address] | | | [place] [address] | + + + | Home Phone [...] Providers + +------+ + | Care Gas Burner Operator Name | Role | Phone | + +------+ + | Petrona Thapa | PCP | | | MD | | | + +------+ + Reason for Visit + +--------+ + | Reason | Onset | Comments | | | Date | | + +--------+ + | Appointment Question | 10/13/ | | | | 2020 | | + +--------+ + Encounter Details +--------+ + + + + | Date | Type | Department | Care Team | Description | +--------+ + + + + | 10/13/ | Telephone | [facility] | Alanis, | Appointment Question | 2019 | | MEDICINE [address] | MD Petrona | | | | | [place], | [address] | | | | | [place] [address] | [place] [address] | | | | | [phone] | [phone] | | | | | | | [...] back stating is being seen by her brazing furnace operator today. Please advise. elephone Encounter - Alan [...] | | | | | [place] [address] | | | | | | [phone] | | | | | | | | +--------+---------+ + + + documented as of this encounter Visit Diagnoses Not on filedocumented in this encounter"
--- OUTSIDE RECORDS SUMMARY | ~2020-02-29 | XMS | Encounter Summary ---
[...] + +------+ + | Care Director Of Outside Sales Name | Role | Phone | [...] as of this encounter Progress Notes Interface, Stopper Grinder In - 01/12/2005 6:46 AM PDTClinic Date: 11/27/2003 Clinic: Surgery Clinic Subjective: This patient of Dr. Chris Padgett walks into clinic today to discuss her laparoscopic incisions and a lesion on her lower back. She was discharged from [facility] approximately 36 hours ago following a [...] discharge and would like to proceed to [place], where her home is. She agrees to [...] she have any additional questions. Liliya Kirkpatrick. / SHARIF [id number] / [id number] / [id number] / [id number] Tdocumented in this encounter Plan of Treatment Not on filedocumented as of this encounter Visit Diagnoses Not on filedocumented in this encounter"
--- OUTSIDE RECORDS SUMMARY | ~2020-02-29 | XMS | Encounter Summary ---
Demographics + + + | Address | [address] | | | [place] [address] | + + + | Home Phone [...] + + | 03/21/ | Office | [facility] | EmmyAlberto, | Migraine without | | 2019 | Visit | MEDICINE [address] | MD Petrona | aura and without | | | | [facility], | [address] [facility] | status migrainosus, | | | | [place] [address] | [place] [address] | not intractable | | | | [phone] | [phone] | (Primary Dx); | | | | [...] She is working with an orthopedist in [facility], and she anticipates that she [...] Procedure: COLONOSCOPY; Surgeon: Luther Brito MD; Location: [facility] MEDICAL PROCEDURE UNIT DILATION AND CURETTAGE OF UTERUS ELBOW SURGERY FINGER TRIGGER RELEASE 2002 FINGER TRIGGER RELEASE 2010 GASTRIC BYPASS SURGERY 2004 HYSTERECTOMY 05/14/1980 JOINT REPLACEMENT Bilateral 2007 2008 KNEE ARTHROSCOPY 2005 LAPAROSCOPY 01/27/2015 LAPAROTOMY 2008 ROTATOR CUFF REPAIR 2005 SPINE SURGERY TONSILLECTOMY 1964 UPPER GASTROINTESTINAL ENDOSCOPY N/A 12/18/2017 Procedure: EGD; Surgeon: Luther Brito MD; Location: [facility] MEDICAL PROCEDURE UNIT CURRENT [...] Allergen Reactions Ensure Diarrhea Food Diarrhea Lactose Tlbsosncnv-Qcw-Oxcn-Codeine Other (See Comments) Balance problems Codeine Sulfate Nausea Only Food Allergy Formula Diarrhea Ensure Levofloxacin Hives, Itching and Rash Butalbital Ropinirole Amitriptyline Hcl Other (See Comments) Confused and questionable for seizures Mpdcatyzpf-Tzkt-Onxrpcza Rash duplicate Hypluodoqb-Uuer-Uikawehj Hives and Rash Cephalexin Hives Ciprofloxacin Hives [...] 1. Parts of this documentwere created using [employer] speech recognition software. As a resu lt, there may be unintended word spelling errors. Every attempt was made to correct the di ctation. documente d in this encounter Plan of Treatment +--------+---------+ + + + | Date | Type | Specialty | Care Team | Description | +--------+---------+ + + + | 05/17/ | Office | Internal Medicine | Emmy-Tajti, | | | 2019 | Visit | | MD Petrona | | | | | | [address] | | | | | | [place] [address] | | | | | | [phone] | | | | | | | [...]
--- OUTSIDE RECORDS SUMMARY | ~2020-02-29 | XMS | Encounter Summary ---
Demographics + + + | Address | [address] | | | [place] [address] | + + + | Home Phone [...] Providers + +------+ + | Care Windows System Admin Name | Role | Phone [...] + + | 12/14/ | Refill | [facility] | Alanis, | Medication Refill | | 2019 | | MEDICINE [address] | MD Petrona | | | | | [place], | [address] [facility] | | | | | [place] [address] | [place] [address] | | | | | [phone] | [phone] | | | | | | | [...] | | | | | [place] [address] | | | | | | [phone] | | | | | | | | +--------+---------+ + + + documented as of this encounter Visit Diagnoses Not on filedocumented in this encounter"
--- OUTSIDE RECORDS SUMMARY | ~2020-02-29 | XMS | Encounter Summary ---
Demographics + + + | Address | [address] | | | [place] [address] | + + + | Home Phone [...] Providers + +------+ + | Care Feather Separator Name | Role | Phone | + +------+ + | Pedrito Gutierrez MD | PCP | | + +------+ + Reason for Visit + +--------+ + | Reason | Onset | Comments | | | Date | | + +--------+ + | Refill Request | 11/03/ | | | | 2008 | | [...] | | | [facility] | [place], [place] | | | | | [address] | [address] | | | | | [address] | [phone] | | | | | [facility] | | | | | | Physician's | | | | | | [facility] [place], | | | | | | [place] [address] | | | | | | [phone] | | | +--------+--------+ + + + [...] this encounter Miscellaneous Notes Telephone Encounter - Linh Kenisha - 11/12/2007 3:52 PM PDTFaxed over the refill for the Carafate. Will also try dinesh's yogurt, 1/3 cup three times daily to add some probiotic , as she is reporting diarrhea stools. She can feel liquids go through her intestines, more so with the cold liquids. Only 50% chance of improving her symptoms with an exploratory vuong rgery, evaluate for internal hernia. documented in this encounter Plan of Treatment Not on filedocumented as of this encounter Visit Diagnoses Not on filedocumented in this encounter"
--- OUTSIDE RECORDS SUMMARY | ~2020-02-29 | XMS | Encounter Summary ---
Demographics + + + | Address | [address] | | | [place] [address] | + + + | Home Phone [...] Providers + +------+ + | Care Shop Superintendent Name | Role | Phone | [...] + + | 01/04/ | Telephone | [facility] | Ulysses Genao MD | Other | | 2017 | | OTOLARYNGOLOGY [address] | [address] [place] [address] | | | | | [address] [facility] [address] | [address] [place] | | | | | [place] | [address] | | | | | [address] | | | | | | [phone] | | | +--------+ + + + [...] Miscellaneous Notes Telephone Encounter - Louise Randall, Webfed Offset Press Operator - 01/04/2018 2:45 PM PDTReferr al has been approved and have been faxed to [facility] at [facility] elephone Encounter - Louise Carlton, Webfed Offset Press Operator - 01/04/2018 9:58 AM PDTWaiting for referral to be approved by insurance and then I will send the order es. elephone Encounter - Ly Li - 018 8:58 AM PDT Vivi called wanting to know where the orders are for Belinda Shefali for Vertigo? Please fax orders to : [phone] Fax document ed in this encounter Plan of Treatment +--------+---------+ + + + | Date | Type | Specialty | Care Team | Description | +--------+---------+ + + + | 05/17/ | Office | Internal Medicine | Alanis, | | | 2019 | Visit | | MD Petrona | | | | | | [address] [place] [address] [place] | | | | | | [place] [address] | | | | | | [phone] | | | | | | | | +--------+---------+ + + + documented as of this encounter Visit Diagnoses Not on filedocumented in this encounter"
--- OUTSIDE RECORDS SUMMARY | ~2020-02-29 | XMS | Encounter Summary ---
Demographics + + + | Address | [address] | | | [place] [address] | + + + | Home Phone [...] Providers + +------+ + | Care Nutrition Club Ambassador Name | Role | Phone | [...] | 2006 | Visit | [facility] | MD Darrion,PhD [address] | Deconditioning; | | | | for Health and | [address] | Physical | | | | Healing [address] | [place], [place] | Deconditioning | | | | [facility] | [address] | | | | | Health and Healing, | [phone] | | | | | | | | | | | Floor [place], [place] | | | | | | [address] | | | | | | [phone] | | | +--------+---------+ + + + [...] Angel Morales - 10/28/2006 9:40 AM Gini Barnes Shefali is here with a diagnosis of left [...] and neurology assessment. Angel Morales M.D., Ph.D. Criminal Profiler, Surgical Rail Crew Member Orthopedics & Cartilage Reconstruction Surgery Department of Orthopedics [email or web address] documented in this encou nter Plan [...]
--- OUTSIDE RECORDS SUMMARY | ~2020-02-29 | XMS | Encounter Summary ---
Demographics + + + | Address | [address] | | | [place] [address] | + + + | Home Phone [...] Providers + +------+ + | Care Assembler Body Name | Role | Phone | + +------+ + | Petrona Thapa | PCP | | | MD | | | + +------+ + Encounter Details +--------+ + + + + | Date | Type | Department | Care Team | Description | +--------+ + + + + | 09/22/ | Abstract | [facility] [place] | Ulysses Genao MD | | | 2015 | | GASTROENTEROLOGY | [address] [place] [address] | | | | | [address] [facility] | [address] [place] [place] | | | | | [address] [place] | [address] | | | | | [address] | | | | | | [phone] | | | +--------+ + + + [...] | | | | | [place] [address] | | | | | | [phone] | | | | | | | | +--------+---------+ + + + documented as of this encounter Visit Diagnoses Not on filedocumented in this encounter"
--- OUTSIDE RECORDS SUMMARY | ~2020-02-29 | XMS | Encounter Summary ---
Demographics + + + | Address | [address] | | | [place] [address] | + + + | Home Phone [...] Providers + +------+ + | Care Document Design Specialist Name | Role | Phone | [...] + | 06/03/ | Telephone | [facility] INTER[facility] | Alanis, | Referral | | 2016 | | MEDICINE [address] | MD [place] | | | | | [place], | [address] [facility] | | | | | [place] [address] | [place] [address] | | | | | [phone] | [phone] | | | | | | | [...] encounter with the pain clinic in the [place], [place] States that th e new medication [...] Juliane Fernandez - 06/03/2017 3:53 PM PSTContact/Gerardo blankenship: Belinda Contact Number: [phone] Provider/Nurse: Emmy Reason for Call: Referral Last [...] | | | | | | [address] [place] [address] [place] | | | | | | [place] [address] | | | | | | [phone] | | | | | | | | +--------+---------+ + + + documented as of this encounter Visit Diagnoses Not on filedocumented in this encounter
--- OUTSIDE RECORDS SUMMARY | ~2020-02-29 | XMS | Encounter Summary ---
Demographics + + + | Address | [address] | | | [place] [address] | + + + | Home Phone [...] Providers + +------+ + | Care Last Remodeler Repairer Name | Role | Phone | [...] | | | | | [address] | [address] [facility] | | | | | [place] | [place] [address] | | | | | [address] | [phone] | | | | | [phone] | | | +--------+ + + + [...] 12/18/17 1321 by | | eral | kani-asc-bgvbcg catheter system; | Jaye Bird, | Lucy [...] [place] Notes Anesthesia Postprocedure Evaluation - Ruben uKmar MD - 12/18/2017 1:56 PM PDTFo rmatting of this note might be different from the original. ANESTHESIA POSTANESTHESIA EVALUATION Belinda Meehan 57 y.o. female 1960 [id number] Procedure(s) EGD (N/A Mouth) COLONOSCOPY (N/A Rectum) [...] signed by Ruben Kumar MD 12/18/2017 13:56 [facility] signed by Ruben Kumar MD a t 12/18/2017 1:56 PM PDTAnesthesia Preprocedure Evaluation - Ruben Kumar MD - 10:54 AM PDT ANESTHESIA PREANESTHESIA EVALUATION Belinda Meehan 57 y.o. female 1960 [id number] Procedure(s): EGD (N/A Mouth) COLONOSCOPY (N/A Rectum) [...] | | | | | | [address] [place] [address] [place] | | | | | | [place] [address] | | | | | | [phone] | | | | | | | [...]
--- OUTSIDE RECORDS SUMMARY | ~2020-02-29 | XMS | Encounter Summary ---
Demographics + + + | Address | [address] | | | [place] [address] | + + + | Home Phone [...] Providers + +------+ + | Care Professional Skater Name | Role | Phone | + [...] Medication Refill | | 2017 | | [facility] [address] | MD [place] | | | | | [place], | [address] [place] | | | | | [place] [address] | [place] [address] | | | | | [phone] | | | | | | | [...] | | | | | [place] [address] | | | | | | [phone] | | | | | | | | +--------+---------+ + + + documented as of this encounter Visit Diagnoses Not on filedocumented in this encounter"
--- OUTSIDE RECORDS SUMMARY | ~2020-02-29 | XMS | Encounter Summary ---
Demographics + + + | Address | [address] | | | [place] [address] | + + + | Home Phone [...] Providers + +------+ + | Care Side Laster Staple Name | Role | Phone | + [...] + + | 07/20/ | Telephone | [facility] | Alanis, | Immunizations | | 2018 | | MEDICINE [address] [place] [address] | MD [place] | | | | | [place], | [address] [place] [address] [place] | | | | | [place] [address] | [place] [address] | | | | | [phone] | [phone] | | | | | | | [...] requesting dexascan results to be done at [facility], referral submitted Telephone Encounter - Petrona Thapa [...] locate her last bone density scan from [facility] but I don't see it, other than [...] regarding message. Please call her back at [phone]. P STTelephone Encounter - Maggie Montoya LPN [...] osteoporosis injection, patient can be reached at [phone] signed by Sia Bai at 07/20/2018 9:51 [...] [place] | | | | | | [place] [address] | | | | | | [phone] | | | | | | | [...]
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
--- OUTSIDE RECORDS SUMMARY | ~2020-02-29 | XMS | Encounter Summary ---
Demographics + + + | Address | [address] | | | [place] [address] | + + + | Home Phone [...] Providers + +------+ + | Care Machine Feeder Floorperson Name | Role | Phone | [...] | | | [address] [facility] | Sulma Boyd | | | | | [address] [place] [address] | [place] [address] | | | | | [address] | | | | | | [phone] | | | +--------+ + + + [...] | | | | | [place] [address] | | | | | | [phone] | | | | | | | [...]
--- OUTSIDE RECORDS SUMMARY | ~2020-02-29 | XMS | Encounter Summary ---
Demographics + + + | Address | [address] | | | [place] [address] | + + + | Home Phone [...] Team Providers + +------+ + | Care Ep Tech Name | Role | Phone | [...] of this encounter Progress Notes Interface, Curing Pickling Packer In - 01/21/2006 1:09 AM [facility] [place] [address] [address] or March 15, 2002 Pedrito Gutierrez M.D. [facility] [address] [place] [address] RE: BELINDA MEEHAN MR #: [id number] Dear Dr. Gutierrez: I had the pleasure [...] to set her up to see a product marketing consultant in Neurology or the Neuromuscular Clinic [...] to contact me. Sincerely, Issac Meeks M.D. fundraising assistant Division of Endocrinology, Diabetes, and Clinical Tactical Debriefer Officer of Metabolic Disorders Clinic MONIQUE / SHARIF [id number] / [id number] / [id number] / Tdocumented in this encounter Plan of Treatment Not on filedocumented as of this encounter Visit Diagnoses Not on filedocumented in this encounter"
--- OUTSIDE RECORDS SUMMARY | ~2020-02-29 | XMS | Encounter Summary ---
Demographics + + + | Address | [address] | | | [place] [address] | + + + | Home Phone [...] Providers + +------+ + | Care Authorization Nurse Name | Role | Phone | [...] [place] | | | | | [place], | [address] [place] | | | | | [place] [address] | [place] [address] | | | | | [phone] | [phone] | | | | | | | [...] | | | | | [place] [address] | | | | | | [phone] | | | | | | | | +--------+---------+ + + + documented as of this encounter Visit Diagnoses Not on filedocumented in this encounter"
--- OUTSIDE RECORDS SUMMARY | ~2020-02-29 | XMS | Encounter Summary ---
Demographics + + + | Address | [address] | | | [place] [address] | + + + | Home Phone [...] Team Providers + +------+ + | Care Filling Machine Operator Name | Role | Phone [...] | | | | Clinical Nutrition | [place], [place] | | | | | [address] | [address] | | | | | Loop Mailcode: OPC5 | [phone] | | | | | Outpatient Clinic | | | | | | [facility] | | | | | | [place] [address] | | | | | | [phone] | | | +--------+ + + + [...] DEPARTMENT OF | [address] | [place] [address] | | | PATHOLOGY | [address] | | | + + + + + | [place] DEPARTMENT OF | [address] | [place] [address] | | | PATHOLOGY | [address] | | | + + + + + documented in this encounter Visit Diagnoses Not on filedocumented in this encounter"
--- OUTSIDE RECORDS SUMMARY | ~2020-02-29 | XMS | Encounter Summary ---
Demographics + + + | Address | [address] | | | [place] [address] | + + + | Home Phone [...] + +------+ + | Care Computer Security Specialist Name | Role | Phone [...] | Visit | [facility] [address] IN WAITER/WAITRESS | Disc Disease; | | | | [address] | | Fibromyalgia | | | | Physician's | | | | | | Pavilion, 4th Floor | | | | | | [place], [place] | | | | | | [address] | | | | | | [phone] | | | +--------+---------+ + + + [...] m the original. Subjective: I periodically see Belinad Meehan for Fibromyalgia. She had low back disc s urgery with pins and fixation 6 weeks ago. She could not be specific exactly which discs or procedure was done, but thinsk it was L4-5 and L5/S1 discs. She has had good results, the le g numbness is gone and much of the LBP is gone. Dr. Ricky smith [place] was her surgeon. She think s a [...] 300 mg) by oral route once daily ybtadqslxm-uhfjwnkqjgrgf-rhtldtnn (FIORICET) 50-325-40 mg Oral Tablet take 2 [...]
--- OUTSIDE RECORDS SUMMARY | ~2020-02-29 | XMS | Encounter Summary ---
Demographics + + + | Address | [address] | | | [place] [address] | + + + | Home Phone [...] Team Providers + +------+ + | Care Launch Steward Name | Role | Phone | [...] [address] | | | | | [place], [place] | [place], [place] | | | | | [address] | [address] | | | | | [phone] | [phone] | | | | | | | [...]
--- OUTSIDE RECORDS SUMMARY | ~2020-02-29 | XMS | Encounter Summary ---
Demographics + + + | Address | [address] | | | [place] [address] | + + + | Home Phone [...] Team Providers + +------+ + | Care Embossing Clerk Name | Role | Phone | + +------+ + PCP | Unavailable | + +------+ + Encounter Details +--------+ + + + + | Date | Type | Department | Care Team | Description | +--------+ + + + + | 07/31/ | Hospital | [facility] | Ruben Tobias | | | 2005 | Encounter | MED CTR SLEEP | MD Raji [address] | | | | | [place] [address] | [address] [place] | | | | | [place], [place] | [place] [address] | | | | | [address] | [phone] | | | | | [phone] | | | +--------+ + + + [...] | | | | | [address] | | | | | | [place] [address] | | | | | | [phone] | | | | | | | | +--------+---------+ + + + documented as of this encounter Visit Diagnoses Not on filedocumented in this encounter"
--- OUTSIDE RECORDS SUMMARY | ~2020-02-29 | XMS | Encounter Summary ---
Demographics + + + | Address | [address] | | | [place] [address] | + + + | Home Phone [...] Providers + +------+ + | Care Green Pipefitter Name | Role | Phone | + [...] 2007 | Visit | Rheumatology [address] | syndrome [address] | | | | [address] | | (Primary Dx) | | | | Mailcode: OPC5 | | | | | | Outpatient Clinic | | | | | | Building [place], | | | | | | [place] [address] | | | | | | [phone] | | | +--------+---------+ + + + [...] have much room. I wonder about small stunt woman ior fossa. There is a disc bulge [...] Final Test performed by [facility]. VITAMIN D 25 HYDROXY (ng/mL) 07/03/2007 47 20-57 Final Comment: TEST INFORMATION: VITAMIN D, 25-HYDROXY This assay accurately quantifies the sum of vitamin D3, 25-hydroxy and vitamin D2, 25-hydroxy. Deficiency: Less than 20 ng/mL Insufficiency: 20-29 ng/mL Optimum Level: 30-80 ng/mL Possible Toxicity: Greater than 80 ng/mL Performed by [facility], [address] [place] [id number] [email or web address], Sincere Jordan MD - Lab. Director documented in this encount er Plan of Treatment Not on filedocumented as of this encounter Visit Diagnoses + + | Diagnosis | + + | Fibromyalgia syndrome 729.1 - Primary Mylagia and myositis, unspecified | + + documented in this encounter"
--- OUTSIDE RECORDS SUMMARY | ~2020-02-29 | XMS | Encounter Summary ---
Demographics + + + | Address | [address] | | | [place] [address] | + + + | Home Phone [...] Providers + +------+ + | Care Economic Developer Name | Role | Phone | [...] + + | 05/30/ | Refill | [facility] | Alanis, | Medication Refill | | 2016 | | MEDICINE [address] | MD Petrona | | | | | [place], | [address] [facility] | | | | | [place] [address] | [place] [address] | | | | | [phone] | [phone] | | | | | | | [...] | | | | | [place] [address] | | | | | | [phone] | | | | | | | | +--------+---------+ + + + documented as of this encounter Visit Diagnoses Not on filedocumented in this encounter"
--- OUTSIDE RECORDS SUMMARY | ~2020-02-29 | XMS | Encounter Summary ---
Demographics + + + | Address | [address] | | | [place] [address] | + + + | Home Phone [...] Team Providers + +------+ + | Care Lapidary Apprentice Name | Role | Phone | [...] | | | | [address] Physician's | [place], [place] | | | | | [address] | [address] | | | | | [place], [place] | [phone] | | | | | [address] | | | | | | [phone] | | | +--------+ + + + [...]
--- OUTSIDE RECORDS SUMMARY | ~2020-02-29 | XMS | Encounter Summary ---
Demographics + + + | Address | [address] | | | [place] [address] | + + + | Home Phone [...] +------+ + | Care Assistant Professor Of Sociology Name | Role | Phone | + [...] 2016 | | NEUROLOGY [place] | [address] | | | | | [address] [facility], | [address] [address] | | | | | [address] [place] | [place] | | | | | [place] [address] | [address] | | | | | [phone] | | | +--------+ + + + [...] | | | | | [place] [address] | | | | | | [phone] | | | | | | | | +--------+---------+ + + + documented as of this encounter Visit Diagnoses Not on filedocumented in this encounter"
--- OUTSIDE RECORDS SUMMARY | ~2020-02-29 | XMS | Encounter Summary ---
Demographics + + + | Address | [address] | | | [place] [address] | + + + | Home Phone [...] Providers + +------+ + | Care Machine Straw Hat Presser Name | Role | Phone | + +------+ + PCP | Unavailable | + +------+ + Encounter Details +--------+ + + + + | Date | Type | Department | Care Team | Description | +--------+ + + + + | 07/04/ | Office | Endocrinology, | Beto Meeks MD | | | 2005 | Visit-ECX | Diabetes and | [address] | | | | | Clinical Nutrition | [place], [place] | | | | | [address] | [address] | | | | | Loop Mailcode: OPC5 | [phone] | | | | | Outpatient Clinic | | | | | | [facility] | | | | | | [place] [address] | | | | | | [phone] | | | +--------+ + + + [...]
--- OUTSIDE RECORDS SUMMARY | ~2020-02-29 | XMS | Encounter Summary ---
Demographics + + + | Address | [address] | | | [place] [address] | + + + | Home Phone [...] Providers + +------+ + | Care Recreational Vehicle Resort Manager Name | Role | Phone | [...] + + | 09/02/ | Telephone | [facility] | Alanis, | Paperwork | | 2017 | | MEDICINE [address] [place] [address] | MD Petorna | | | | | [place], | [address] [facility] | | | | | [place] [address] | [place] [address] | | | | | [phone] | [phone] | | | | | | | [...] mileage/fuel. Will need to fax it to [phone] signed by Maggie Montoya LPN at 09/07/2017 3:45 PM PDTTelephone Encounter - Susie Gimlore - 09/04/2017 2:44 PM PDT1. Patient called again to ask for a letter stating she was in on the for fuel re imbursement. 2. Please fax a small note with her information and appointment date to [phone]. 3. Call patient to notify upon completion. [phone] elephone Encounter - Malissa Redd - 09/03/2017 2:25 PM PDTPatient called to check on status. Pl ease return her call [phone] signed by Malissa Redd at 09/03/2017 2:26 [...] | | | | | [place] [address] | | | | | | [phone] | | | | | | | | +--------+---------+ + + + documented as of this encounter Visit Diagnoses Not on filedocumented in this encounter"
--- OUTSIDE RECORDS SUMMARY | ~2020-02-29 | XMS | Encounter Summary ---
Demographics + + + | Address | [address] | | | [place] [address] | + + + | Home Phone [...] + + | 07/17/ | Telephone | [facility] | Alanis, | Medical Problem | | 2017 | | MEDICINE [address] | MD [place] | | | | | [place], | [address] [facility] | | | | | [place] [address] | [place] [address] | | | | | [phone] | | | | | | | [...] | | | | | | [address] [place] [address] [place] | | | | | | [place] [address] | | | | | | [phone] | | | | | | | | +--------+---------+ + + + documented as of this encounter Visit Diagnoses Not on filedocumented in this encounter"
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
--- OUTSIDE RECORDS SUMMARY | ~2020-02-29 | XMS | Encounter Summary ---
Demographics + + + | Address | [address] | | | [place] [address] | + + + | Home Phone [...] Providers + +------+ + | Care Naturopathic Doctor Name | Role | Phone | [...] + + | 01/31/ | Telephone | [facility] | Alanis, | Foot Pain | | 2018 | | MEDICINE [address] | MD [place] | | | | | [place], | [address] [facility] | | | | | [place] [address] | [place] [address] | | | | | [phone] | [phone] | | | | | | | [...] of treatment she needs for this. elephone Sia Martinez - 01/31/2019 7:24 AM PDTPatient is calling [...] | | | | | [place] [address] | | | | | | [phone] | | | | | | | | +--------+---------+ + + + documented as of this encounter Visit Diagnoses Not on filedocumented in this encounter"
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
--- OUTSIDE RECORDS SUMMARY | ~2020-02-29 | XMS | Encounter Summary ---
Demographics + + + | Address | [address] | | | [place] [address] | + + + | Home Phone [...] + +------+ + | Care Product Marketing Consultant Name | Role | Phone | [...] + + | 06/30/ | Telephone | [facility] INTER[facility] | Alanis, | Other | | 2018 | | MEDICINE [address] | MD [place] | | | | | [place], | [address] [facility] | | | | | [place] [address] | [place] [address] | | | | | [phone] | [phone] | | | | | | | [...] us of kidney, please fax order to [facility]. elephone Encounter - Shalonda Mcdermott - 07/05/2018 12:12 PM PSTBrenda called to follow up on request, patient is very eager to get moving on this for hopes that it will ohelp with her pain. Please call patient to follow up at [phone]. Patient was informed that provider is out of the office until 07/06/2018.Electronically sig yesenia by Shalonda Mcdermott at 07/05/2018 12:14 PM PSTTelephone Encounter - Maggie Montoya LPN - 4:49 PM PSTPatient notified of MD comments/recommendations. States would like orde r for renal US at [facility]. Please advise elephone Encounter - Mary Kay Kuo - 06/30/2018 4:24 P M PSTPatient called, please advise. 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 Patient would like a call back to advise, . elephone Encounter - Ayla Quezada - 06/30/2018 1:50 PM PSTPatient called in stated she would like to talk to the nurse regarding her back issue. Please advise [phone] signed by Ayla Quezada at 06/30/2018 1:52 [...] [place] | | | | | | [place] [address] | | | | | | [phone] | | | | | | | [...]
--- OUTSIDE RECORDS SUMMARY | ~2020-02-29 | XMS | Encounter Summary ---
Demographics + + + | Address | [address] | | | [place] [address] | + + + | Home Phone [...] Providers + +------+ + | Care Preparation Center Coordinator Name | Role | Phone | [...] + + | 04/09/ | Telephone | [facility] Division of | Carlos Arreola, | Erroneous Encounter | | 2005 | | Gastroenterology/Hep | [address] | - Disregard | | | | atology [address] | (duplicate call; see | | | | [address] | [place] [address] | other encounter ) | | | | Mailcode: [id number] | [phone] | | | | | [facility] | | | | | | [address] | | | | | | [place], [place] | | | | | | [address] | | | | | | [phone] | | | +--------+ + + + [...]
--- OUTSIDE RECORDS SUMMARY | ~2020-02-29 | XMS | Encounter Summary ---
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 Provider: DELFINA MOLINA ANP Nathalia Garrett - 007 11:16 AM PDT Physical Therapy Medicare Progress Note Date: 11/27/2006 Belinda Meehan [id number]. 1960 Start of Care: 11/24/2006 Referring Provider: [...] the free margin and undersurface of the acura sales consultant horn of the medial meniscus suspicious for [...] gait using bilateral lofstrand crutches Patient's goals: usp: Ambulation with single based cane Treatment: Patient [...] are to increased strength and endurance . residential goals: Improve gait so patient can ambulate with single based cane. Plan: Patient will return for f/u visit in 2 weeks and at that time will progress in core, hip, and knee strengthening regime. Treatment began: 1100 Treatment ended: 1200 Nathalia Arora, Physical Therapist License #[id number] documented in this encoun ter Plan of Treatment + + +--------+ + + | Name | Type | Priori | Associated Diagnoses | Order Schedule | | | | ty | | | + + +--------+ + + | [facility] | Procedures | Routin | [...]
--- OUTSIDE RECORDS SUMMARY | ~2020-02-29 | XMS | Encounter Summary ---
Demographics + + + | Address | [address] | | | [place] [address] | + + + | Home Phone [...] Team Providers + +------+ + | Care Spark Tester Name | Role | Phone | [...] of this encounter Progress Notes Interface, Gas Station Clerk In - 01/11/2005 6:26 PM PDT Referred [...] was obtained from the patient, [facility] medical records, and two magnetic resonance scans [...] any point. She has been seen her potash flaker in [facility], Dr. Lc Renteria, who by her [...] and fibromyalgia. SOCIAL HISTORY: Patient lives in [facility] with her eldest son. She supports [...] acute distress. She does have a right-sided Sleepy Eye crutch which she uses to enter and [...] biceps, triceps, wrist extensors, finger extensors, hand econometrics professor, hip flexors and extensors, and ankle, plantar, and dorsiflexors as well as knee flexors and extensors. There is no pronator drift. Reflexes are 2+ and symmetrical at the biceps, triceps, brachioradialis, patellar, and ankle regions. Toes are downgoing to plantar stimulation. Light touch and tuning fork is within normal limits in the lower extremities. Rmnyav-lo-rxdp and fine finger movements are within normal [...] Amin M.D., Neurophthalmology cc: CRYSTAL CARTER M.D. [facility] [address] [facility] [address] [facility] [id number] signed by Interface, Gas Station Clerk In at 2004 6:26 PM PDTdocumented in this encounter Plan of Treatment Not on filedocumented as of this encounter Visit Diagnoses Not on filedocumented in this encounter"
--- OUTSIDE RECORDS SUMMARY | ~2020-02-29 | XMS | Encounter Summary ---
Demographics + + + | Address | [address] | | | [place] [address] | + + + | Home Phone [...] Providers + +------+ + | Care Top Cutter Name | Role | Phone | [...] | | sciatica | [address] | [address] | | | | | Lumbar | [place], | Phone: | | | | | stenosis | [place] | [phone] | | | | | Opiate | [address] | Fax: | | | | | dependence, | Phone: | [phone] | | | | | continuous | [phone] | | | | | | ([facility]) | Fax: | | | | | | | [phone] | | +--------+ + + + + + Reason for Visit + + + | Reason | Comments | + + + | Medication Refill | | + + + Encounter Details +--------+---------+ + + + | Date | Type | Department | Care Team | Description | +--------+---------+ + + + | 02/23/ | Office | [facility] | Emmy-Kamlesh, | B12 deficiency | | 2017 | Visit | MEDICINE [address] [place] [address] | MD [place] | (Primary Dx); | | | | [address] [place], | [address] [facility] | Chronic bilateral | | | | [place] [address] | [place] [address] | low back pain | | | | [phone] | [phone] | without sciatica; | | | | [...] AM PDTWe are referr ing you to [facility] in [place]. B12 shot today. documented in this encounter [...] in seein g a pain clinic in [facility] as she [place] resident. [...] Chronic pain COPD (chronic obstructive pulmonary disease) ([facility]) Depression Diarrhea Dumping syndrome Fibromyalgia Hyperparathyroidism ([facility]) Hypothyroidism IBS (irritable bowel syndrome) Lumbar radiculopathy primarily right 01/04/2015 Meniere syndrome Migraine Migraines Obesity OLIVER (obstructive sleep apnea) Osteoarthritis, generalized Osteopenia Osteoporosis Peripheral neuropathy ([facility]) Rheumatoid arthritis ([facility]) Right arm pain 01/04/2015 RLS (restless legs syndrome) S/P lumbar fusion 01/04/2015 Scoliosis Stroke ([facility]) Syncope Tremor FAMILY HISTORY Family History [...] Reactions Levofloxacin Hives and Itching Amitriptyline Hcl Zegciqtuif-Ueoo-Uyedtuos Cephalexin Ciprofloxacin Clarithromycin Clindamycin Hcl Codeine Sulfate [...] | | | | | [place] [address] | | | | | | [phone] | | | | | | | [...]
--- OUTSIDE RECORDS SUMMARY | ~2020-02-29 | XMS | Encounter Summary ---
Demographics + + + | Address | [address] | | | [place] [address] | + + + | Home Phone [...] Team Providers + +------+ + | Care Canvas Baster Name | Role | Phone | [...] | | | [facility] | [place], [place] | | | | | [address] | [address] | | | | | [address] | [phone] | | | | | Physician's | | | | | | Pavilion, 1st floor | | | | | | [place], [place] | | | | | | [address] | | | | | | [phone] | | | +--------+--------+ + + + [...] 09/03/2011 12:21 PM PDTLast Office Visit in [facility] was on 07/25 at 1:20 pm with Beto Meeks MD. documented in this enc ounter Plan of Treatment Not on filedocumented as of this encounter Visit Diagnoses Not on filedocumented in this encounter"
--- OUTSIDE RECORDS SUMMARY | ~2020-02-29 | XMS | Encounter Summary ---
Demographics + + + | Address | [address] | | | [place] [address] | + + + | Home Phone [...] Providers + +------+ + | Care Film Tests Checker Name | Role | Phone | [...] + | 05/05/ | Telephone | [facility] | Emmy-Kamlesh, | Incontinence | | 2018 | | MEDICINE [address] | MD [place] | Supplies | | | | [place], | [address] [facility] | | | | | [place] [address] | [place] [address] | | | | | [phone] | [phone] | | | | | | | [...] Telephone Encounter - Maggie Montoya LPN - 05/05/2018 11:06 AM PSTLeft message [...] with the nurse. Patient [facility] if her incontinence supplies and [...] | | | [address] [facility] | | | | | | [place] [address] | | | | | | [phone] | | | | | | | [...]
--- OUTSIDE RECORDS SUMMARY | ~2020-02-29 | XMS | Encounter Summary ---
Demographics + + + | Address | [address] | | | [place] [address] | + + + | Home Phone [...] [id number] | | | | | | [place], [place] | | | | | | [address] | | | | | | [phone] | | | +--------+ + + + [...] uIU/ml | | | | | [facility] | | | | | | Laboratories. | | | | + + + + + + + + | Specimen | + + | | + + + + + + + | Performing | Address | City/State/Zipcode | Phone Number | | Organization | | | | + + + + + | [facility] | [address] | [place] [address] | | | LABORATORY | | | | + + + + + documented in this encounter Visit Diagnoses Not on filedocumented in this encounter"
--- OUTSIDE RECORDS SUMMARY | ~2020-02-29 | XMS | Encounter Summary ---
[...] Providers + +------+ + | Care Welder Explosion Name | Role | Phone | + [...] + + | 05/28/ | Office | [facility] | Delfina Molina, | LBP [...] of Opioids; | | | | Floor [place], [place] | | Migraine Headache; | | | | [address] | | Herniated Lumbar | | | | [phone] | | Intervertebral Disc | | | [...] Belinda Meehan is a 47 y.o. female [facility] Return Visit Chief [...] diagnostics and lab results. 6. [facility] with [facility] knee Post arthroplasty physical rehabiliation. 7. Schedule follow up in one month or sooner if needed - The pateint was asked to call the clinic with any concerns or questions. DELFINA MOLINA [facility] Mail code CH 4P [facility] and [address] [place] [address] asha Nolasco - 05/28/2007 [...] of 103.2 she was seen here at [facility] today the temp is 100.2 3. [...]
--- OUTSIDE RECORDS SUMMARY | ~2020-02-29 | XMS | Encounter Summary ---
Demographics + + + | Address | [address] | | | [place] [address] | + + + | Home Phone [...] Providers + +------+ + | Care Cable Mechanic Name | Role | Phone | [...] + + | 04/08/ | Telephone | [facility] | Anali Antonio, | | | 2012 | | Pain Center at | ANP | | | | | [facility] | | | | | | [address] | | | | | | [facility] | | | | | | and Healing, | | | | | | Building , | | | | | | Floor [place], [place] | | | | | | [address] | | | | | | [phone] | | | +--------+ + + + [...] had this done by Dr. Betty García, [facility] Now in the PCP/Care team She wants to send records to this doctor from [facility] to get records from them elephone Encounter [...]
--- OUTSIDE RECORDS SUMMARY | ~2020-02-29 | XMS | Encounter Summary ---
Demographics + + + | Address | [address] | | | [place] [address] | + + + | Home Phone [...] Providers + +------+ + | Care Healthcare Facility Administrator Name | Role | Phone | [...] + + | 06/25/ | Refill | [facility] | Alanis, | Medication Refill | | 2019 | | MEDICINE [address] | MD [place] | | | | | [place], | [address] [facility] | | | | | [place] [address] | [place] [address] | | | | | [phone] | [phone] | | | | | | | [...] [place] | | | | | | [place] [address] | | | | | | [phone] | | | | | | | | +--------+---------+ + + + documented as of this encounter Visit Diagnoses Not on filedocumented in this encounter"
--- OUTSIDE RECORDS SUMMARY | ~2020-02-29 | XMS | Encounter Summary ---
Demographics + + + | Address | [address] | | | [place] [address] | + + + | Home Phone [...] + +------+ + | Care Manager Utilization Management Name | Role | Phone | [...] + + | 10/05/ | Refill | [facility] | Alanis, | Medication Refill | | 2017 | | MEDICINE [address] | MD ePtrona | | | | | [place], | [address] [facility] | | | | | [place] [address] | [place] [address] | | | | | [phone] | [phone] | | | | | | | [...] [place] | | | | | | [place] [address] | | | | | | [phone] | | | | | | | | +--------+---------+ + + + documented as of this encounter Visit Diagnoses Not on filedocumented in this encounter"
--- OUTSIDE RECORDS SUMMARY | ~2020-02-29 | XMS | Encounter Summary ---
Demographics + + + | Address | [address] | | | [place] [address] | + + + | Home Phone [...] Team Providers + +------+ + | Care Shellfish Grower Name | Role | Phone | [...] as of this encounter Progress Notes Interface, Cpc Coder In - 03/26/2006 1:05 AM [facility] [place] [address] [address] or February 22, 2001 Pedrito Gutierrez M.D. [address] [address] RE: BELINDA MEEHAN MR #: [id number] Dear [...] regarding this patient. Sincerely, Issac Meeks M.D. caustic loader Division of Endocrinology, Diabetes, and Clinical Autism Specialist, Metabolic Disorders Clinic PBD / [id number] / [id number] / [id number] / [id number] signed by Interface, Cpc Coder In at 03/26/2006 1:05 AM PDTdocume nted in this encounter Plan of Treatment Not on filedocumented as of this encounter Visit Diagnoses Not on filedocumented in this encounter
--- OUTSIDE RECORDS SUMMARY | ~2020-02-29 | XMS | Encounter Summary ---
Demographics + + + | Address | [address] | | | [place] [address] | + + + | Home Phone [...] Team Providers + +------+ + | Care Third Hand Name | Role | Phone | [...] | | | [facility] | [place], [place] | | | | | [address] | [address] | | | | | [address] | [phone] | | | | | Physician's Pavilion | | | | | | Physician's | | | | | | Pavilion [place], | | | | | | [place] [address] | | | | | | [phone] | | | +--------+--------+ + + + [...]
--- OUTSIDE RECORDS SUMMARY | ~2020-02-29 | XMS | Encounter Summary ---
Demographics + + + | Address | [address] | | | [place] [address] | + + + | Home Phone [...] Providers + +------+ + | Care Digital Publishing Specialist Name | Role | Phone | [...] + + | 04/08/ | Office | [facility] | Alanis, | Pressure injury of | | 2017 | Visit | MEDICINE [address] | MD John | right buttock, stage | | | | [address] [place], | [address] | 1 (Primary Dx); [place] | | | | [place] [address] | [place] [address] | (obstructive sleep | | | | [phone] | [phone] | apnea); Lower leg | | | [...] generalized Osteopenia Osteoporosis Peripheral neuropathy Rheumatoid arthritis ([facility] [...] Procedure: COLONOSCOPY; Surgeon: Luther Brito MD; Location: [facility] PROC[facility] DILATION AND CURETTAGE OF UTERUS ELBOW SURGERY FINGER TRIGGER RELEASE 2003 FINGER TRIGGER RELEASE 2010 GASTRIC BYPASS SURGERY 2004 HYSTERECTOMY 05/14/1980 JOINT REPLACEMENT Bilateral 2007 2008 KNEE ARTHROSCOPY 2005 LAPAROSCOPY 01/27/2015 LAPAROTOMY 2008 ROTATOR CUFF REPAIR 2005 SPINE SURGERY TONSILLECTOMY 1964 UPPER GASTROINTESTINAL ENDOSCOPY N/A 12/18/2017 Procedure: EGD; Surgeon: Luther Brito MD; Location: [facility] MEDICAL PROCEDURE UN[facility] CURRENT MEDICATIONS Current [...] Cla Maddie Thapa MD 1,000 mcg at 04/08/18 1131 ALLERGIES Allergies Allergen Reactions Lactose Codeine Sulfate Nausea Only Levofloxacin Hives, Itching and Rash Amitriptyline Hcl Other (See Comments) Confused and questionable for seizures Psnuyqgkxm-Irzi-Qqbijdhi Hives and Rash Cephalexin Hives Ciprofloxacin Hives [...] like to check with a provider in [place] which is closer to her home for [...] Note: Parts of this documentwere created using [employer] speech recognition software. As a r esult, there may be unintended word spelling errors. Every attempt was made to correct the dictation. ree, Anastasia Leonardo LPN - 04/08/2018 11:00 AM [...] | | | | | [place] [address] | | | | | | [phone] | | | | | | | [...]
--- OUTSIDE RECORDS SUMMARY | ~2020-02-29 | XMS | Encounter Summary ---
Demographics + + + | Address | [address] | | | [place] [address] | + + + | Home Phone [...] Team Providers + +------+ + | Care Blanket Inspector Name | Role | Phone | [...] | | [facility] | [place], [place] | | | | | and [place], | [address] | | | | | [place] [address] [facility] | [phone] | | | | | Floor [place], [place] | | | | | | [address] | | | | | | [phone] | | | +--------+ + + + [...]
--- OUTSIDE RECORDS SUMMARY | ~2020-02-29 | XMS | Encounter Summary ---
Demographics + + + | Address | [address] | | | [place] [address] | + + + | Home Phone [...] + +------+ + | Care Medical Office Technology Instructor Name | Role | Phone | + +------+ + | Petrona Thapa | PCP | | | MD | | | + +------+ + Reason for Visit + +--------+ + | Reason | Onset | Comments | | | Date | | + +--------+ + | Medication Refill | 11/29/ | | | | 2020 | | + +--------+ + Encounter Details +--------+--------+ + + + | Date | Type | Department | Care Team | Description | +--------+--------+ + + + | 11/29/ | Refill | [facility] | Alanis, | Medication Refill | | 2019 | | MEDICINE [address] | MD [place] | | | | | [place], | [address] [place] | | | | | [place] [address] | [place] [address] | | | | | [phone] | [phone] | | | | | | | [...] Telephone Encounter - Maggie Montoya LPN - 11/30/2019 4:57 PM PDTAdvised patient to seek edical attention at the in [place] as is out of the office this afternoon. Understan ds and accepts elephone Encounter - Long Owen - 11/30/2019 4:20 PM PDTMedication: zofran Strength: 4mgs Directions: 4 per day Quantity Remainin Pharmacy: [facility] [place] Call/Mail/Log Data Technician/Fax: call Date of Last Refill: unknown Date of Last Visit: 11/15/19 Date of Next Visit: 02/16/20 Patient is also having a migraine. Patient has been taking her medication and is not seemin g to help. dojannet barrera in this encounter Plan of [...] | | | | | [place] [address] | | | | | | [phone] | | | | | | | | +--------+---------+ + + + documented as of this encounter Visit Diagnoses + + | Diagnosis | + + | Nausea Nausea alone | + + documented in this encounter"
--- OUTSIDE RECORDS SUMMARY | ~2020-02-29 | XMS | Encounter Summary ---
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 2. May continue with Leslie NTE 4 per day as prescribed 3. [...] Meehan is a 46 y.o. female [facility] [...] seen Dr. Morales in orth opedics at [facility], she reports that surgery is not [...] swelling has resolved. Belinda has been using Leslie 10/325 an average of 5 tablets per day. 1 tablet has an effecti ve duration of 5 hours "pain breaks through at about 4 hours", she reports taking a Leslie ev eduardo 5 hours. She denies any [...] Collection Time Resulting Agency 07/30/2006 4:00 PM [facility] Component Results Component [...] previous 6 days. 2. May continue with Leslie NTE 4 per day as prescribed 3. Continue with PT and Psychology as scheduled. 4. Continue with Trileptal 150mg 1 1/2 tablet twice a day 5. Follow up to review medications on 09/09/06 and call with any concerns or questions. DELFINA MOLINA [facility] Mail code CH 4P [facility] [address] [facility] [address] Ailyn Foster 08/27/19 07 9:09 AM [...]
--- OUTSIDE RECORDS SUMMARY | ~2020-02-29 | XMS | Encounter Summary ---
Demographics + + + | Address | [address] | | | [place] [address] [...] + | 02/02/ | Telephone | [facility] | Alanis, | Pain | | 2018 | | MEDICINE [address] | MD [place] | | | | | [place], | [address] | | | | | [place] [address] | [place] [address] | | | | | [phone] | [phone] | | | | | | | [...] | | | | | [place] [address] | | | | | | [phone] | | | | | | | | +--------+---------+ + + + documented as of this encounter Visit Diagnoses Not on filedocumented in this encounter"
--- OUTSIDE RECORDS SUMMARY | ~2020-02-29 | XMS | Encounter Summary ---
Demographics + + + | Address | [address] | | | [place] [address] | + + + | Home Phone [...] Team Providers + +------+ + | Care Phytochemistry Professor Name | Role | Phone | [...] | Services | Therapy | Other | [facility] | HOSPITAL | | | Required | | idiopathic | i, | PHYSICAL | | | | | scoliosis, | Sulaiman-Gily | THERAPY [address] | | | | | lumbar | , MD [address] | [place] | | | | | region | [address] | [place], [place] | | | | | Chronic | [place], | [address] | | | | | bilateral | [place] | Phone: | | | | | low back | [address] | [phone] | | | | | pain with | Phone: | Fax: | | | | | bilateral | [phone] | [phone] | | | | | sciatica | Fax: | | | | | | Procedures | [phone] | | | | | | 07/20 [...] + + | 07/18/ | Office | [facility] | Emmy-Tajti, | Chronic bilateral | | 2020 | Visit | MEDICINE [address] | MD [place] | low back pain with | | | | [address] [place], | [address] [facility] | bilateral sciatica | | | | [place] [address] | [place] [address] | (Primary Dx); Other | | | | [phone] | [phone] | idiopathic | | | | | [...] issues: Patient recently did an MRI in [place], [place], after which she had a steroid [...] Common migraine COPD (chronic obstructive pulmonary disease) ([facility] [...] Myalgia Nausea Nonalcoholic hepatosteatosis Obesity Opioid dependence ([facility]) Orthostatic hypotension OLIVER (obstructive sleep apnea) Osteoarthritis, generalized Osteopenia Osteoporosis Palpitations Peripheral neuropathy Rheumatoid arthritis (HCC) Right arm pain 01/04/2015 RLS (restless legs syndrome) S/P lumbar fusion 01/04/2015 Scoliosis Sleep apnea Spondylosis with myelopathy, lumbar region Stroke ([facility]) Syncope Tremor Type II [...] Procedure: COLONOSCOPY; Surgeon: Luther Brito MD; Location: [facility] MEDICAL PROCEDURE UNIT DILATION AND CURETTAGE OF UTERUS ELBOW SURGERY FINGER TRIGGER RELEASE 2002 FINGER TRIGGER RELEASE 2010 GASTRIC BYPASS SURGERY 2004 HYSTERECTOMY 05/14/1980 JOINT REPLACEMENT Bilateral 2007 2008 KNEE ARTHROSCOPY 2005 LAPAROSCOPY 01/27/2015 LAPAROTOMY 2008 ROTATOR CUFF REPAIR 2005 SPINE SURGERY TONSILLECTOMY 1964 UPPER GASTROINTESTINAL ENDOSCOPY N/A 12/18/2017 Procedure: EGD; Surgeon: Luther Brito MD; Location: [facility] MEDICAL PROCEDURE UNIT CURRENT MEDICATIONS [...] Cla Maddie Thapa MD 1,000 mcg at 07/18/19 0913 ALLERGIES Allergies Allergen Reactions Ensure Diarrhea Food Diarrhea Lactose Gbevmbunmw-Yqu-Trpo-Codeine Other (See Comments) Balance problems Codeine Sulfate Nausea Only Food Allergy Formula Diarrhea Ensure Levofloxacin Hives, Itching and Rash Butalbital Ropinirole Amitriptyline Hcl Other (See Comments) Confused and questionable for seizures Acsnwikkjh-Jfvi-Mkacmrov Rash duplicate Khzsgipqjz-Myrg-Twvlwsks Hives and Rash Cephalexin Hives Ciprofloxacin Hives and Rash Clarithromycin Hives and Rash Clindamycin Hcl Hives and Rash Doxycycline Rash Duloxetine Other (See Comments) Migraines and nausea Ketorolac Hives Levofloxacin Hives and Rash Morphine Swelling Penicillins Hives and Rash Ropinirole Hcl Hives Sulfamethoxazole-Trimethoprim Hives and Rash Tramadol Hcl Nausea Only FOLLOW-UP No follow-ups on file. Notes: 1. Parts of this documentwere created using Blinkbug[employer] speech recognition software. As a resu lt, there may be unintended word spelling errors. Every attempt was made to correct the di ctation. 2. ISulaiman MD, personally provided the services described in [...] [place] | | | | | | [address] [place] [address] [place] | | | | | | [place] [address] | | | | | | [phone] | | | | | | | [...] | | | | | uIU/mL | STYudy EVANS | | | | [...] ST. | [address] | [place], [place] | [phone] | | [facility] | | [address] | | | - LABORATORY | | [...]
--- OUTSIDE RECORDS SUMMARY | ~2020-02-29 | XMS | Encounter Summary ---
Demographics + + + | Address | [address] | | | [place] [address] | + + + | Home Phone [...] Providers + +------+ + | Care Bank Consultant Name | Role | Phone | [...] of this encounter Progress Notes Interface, Commercial Project Manager In - 01/12/2005 8:09 AM PDT [id number] [facility] Date: 02/27/2004 Clinic[facility] Subjective: The patient underwent gastric bypass surgery in November 2003 under the care of Dr. Chris Padgett here at [facility]. She has been doing [...] been scheduled through the Sleep Clinic in [place]. Medications 1. Ranitidine 150 mg p.o. b.i.d. [...] months. Issac Meeks M.D. MONIQUE / SHARIF [id number] / [id number] / [id number] / cc: Joanna Arshad M.D. [address] [facility] [place], [place] [address] documented i n this encounter Plan of Treatment Not on filedocumented as of this encounter Visit Diagnoses Not on filedocumented in this encounter"
--- OUTSIDE RECORDS SUMMARY | ~2020-02-29 | XMS | Encounter Summary ---
Demographics + + + | Address | [address] | | | [place] [address] | + + + | Home Phone [...] Providers + +------+ + | Care Safety Risk Lead Name | Role | Phone | [...] | | | | | [place], | | | | | | [place] [address] | | | +--------+ + + + [...] Report Patient: BELINDA MEEHAN J Med Rec: [id number] Sex F Bdate: 1960 Date/Time Data Entered Into [facility] Anesth PostOp Surgery Date [id number] 12/09/04 10:30 [id number] 11/23/03 10:57 Anesthesiologist SYEDA ANDREWS 12/09/04 10:30 [...] | Patient: BELINDA MEEHAN J Med Rec: [id number] Sex F Bdate: 1960 | | Date/Time Data | | Entered Into [facility] | | Anesth PostOp | | Surgery Date [id number] 12/09/04 10:30 | | [id number] 11/23/03 10:57 | | Anesthesiologist SYEDA ANDREWS [...]
--- OUTSIDE RECORDS SUMMARY | ~2020-02-29 | XMS | Encounter Summary ---
Demographics + + + | Address | [address] | | | [place] [address] | + + + | Home Phone [...] Team Providers + +------+ + | Care Bridge Repair Crew Person Name | Role | Phone | [...] (would like | | 2007 | | [place] [address] | [address] | labs put in) | | | | Ave Mailcode: CH4S | [facility] | | | | | [facility] | [place], [place] | | | | | and [place], | [address] | | | | | [facility] | [phone] | | | | | [place], [place] | | | | | | [address] | | | | | | [phone] | | | +--------+ + + + [...] sent over orders to be done in [place]. S he had antibiotics preop over a month ago. Will order labs. elephone Encounter - Inga Bourgeois - 03/01/2008 4:0 4 PM PDTPt is coming to [facility] tomorrow for an appt and she would [...]
--- OUTSIDE RECORDS SUMMARY | ~2020-02-29 | XMS | Encounter Summary ---
Demographics + + + | Address | [address] | | | [place] [address] | + + + | Home Phone [...] Providers + +------+ + | Care Timber Surveyor Name | Role | Phone | [...] + + | 03/31/ | Office | [facility] | Delfina [place], | Encounter for | | 2006 | Visit | Pain Center at | ANP | [facility] | | [facility] | | Use of Opioids; Left | | | | [address] | | Knee Pain; | | | | [place] for [facility] | | Arthroplasty of the | | | | and Healing, | | Left Knee; DJD | | | | Building | | (Degenerative Joint | | | | Floor [place], [place] | | Disease) of Knee; | | | | [address] | | Fibromyalgia | | | | [phone] | | syndrome 729.1; | | | [...] Belinda Meehan is a 47 y.o. female [facility] Pain [...] spine 2004 Optic Nerve Hemorrhage left eye Reduced Vision [...] value in her continuing [facility] at [facility] until her bilateral knee surgical [...] physical therapy for the left knee has finishe d, to discuss PT for the lower back. - I encouraged Belinda to delay the right knee arthroplasty until her left knee has complete ly healed I am concerned about the surgical trauma sensatizing her more aggrevating her fibr omyalgia central sensatization. 4. Continue with Oxycontin 40mg, 1 tablet every [address] Brenda SHEEHAN is now prescribin g. 5. I recommended that she contact Dr. Vasquez for her acute pain management, otherwise it wou ld be reasonable for her to return to oxycodone 5mg, 1 tablet bid PRN pain with Dr. Brenda SHEEHAN. - The pateint was asked to call the clinic with any concerns or questions. DELFINA MOLINA [facility] Mail code CH 4P [place] [facility] and [address] [address] asha Nolasco - 03/31/2007 9:15 AM PDTCMA History: PMH/PSH/SH/FH [...]
--- OUTSIDE RECORDS SUMMARY | ~2020-02-29 | XMS | Encounter Summary ---
Demographics + + + | Address | [address] | | | [place] [address] | + + + | Home Phone [...] Providers + +------+ + | Care Service Trainer Name | Role | Phone | [...]
--- OUTSIDE RECORDS SUMMARY | ~2020-02-29 | XMS | Encounter Summary ---
Demographics + + + | Address | [address] | | | [place] [address] | + + + | Home Phone [...] Team Providers + +------+ + | Care Crowning Hammer Operator Name | Role | Phone | [...] | | | | | | | [place], [place] | | | | | | | [address] | | | | | | | Phone: | | | | | | | [phone] | | | | | | | Fax: | | | | | | | [phone] | +--------+--------+ + + + + Encounter [...] | | | [facility] | [place], [place] | Metabolic syndrome | | | | [address] | [address] | X 250.80; Essential | | | | [address] | [phone] | hypertension 401.9; | | | | Physician's Pavilion | | Fibromyalgia | | | | Physician's | | syndrome 729.1 | | | | Pavilion [place], | | | | | | [place] [address] | | | | | | [phone] | | | +--------+---------+ + + + [...] knee replacement do ne on 08/30/[address] [place] [address] Vasquez. Patient Active Problem List [...] by oral route once daily at bedti pa as needed Oxycodone HCl (OXYCONTIN) 40 mg [...]
--- OUTSIDE RECORDS SUMMARY | ~2020-02-29 | XMS | Encounter Summary ---
Demographics + + + | Address | [address] | | | [place] [address] | + + + | Home Phone [...] Providers + +------+ + | Care Livestock Yard Attendant Name | Role | Phone | [...] + + | 03/17/ | Telephone | [facility] | Alanis, | TCM - Hosp FU | | 2017 | | [facility] [address] | MD [place]ron[place] | | | | | [place], | [address] [facility] | | | | | [place] [address] | [place] [address] | | | | | [phone] | [phone] | | | | | | | [...] 03/23/2018 2:24 PM PDTI have received a [employer] e call from Taniya at Dr. Paiz's office and they are working on getting home health started from nursing evaluation recommendation today. I have attempted follow up call to pt with vo [employer] message. eleph one Encounter - Erica Emerson [...] for Physical Therapy request and a [facility] plan. I have provided my phone # for follow up [phone]. elephone Encounter - Erica Emerson RN - [...] to report we have received records from [facility] and I have reached out to pillowcase sewer Devin to report dressing/ w ound care concerns that he reports working with Shalonda at [facility] and she has had an ev aluation yesterday. She receives 20 hours care support per month and they are also working w [facility] volunteer service to help with patient needs. [...] appt. She reports no change in current medications.Elect ronically signed by Erica Emerson RN at 03/18/2018 1:50 PM PDTTelephone Encounter - Earl ndt, Erica Leonardo RN - 03/17/2018 3:27 PM PDTTCM follow up call received from call center-Patient reports had just discharged from [facility] on Oct. 2 following a Bowel obstr uction surgery and has open wound area (which will require some packing) with efrne still intact. She reports not enough help at home to support her current state of weakness and she had contacted the [facility] worker she reports Devin [phone] as her pillowcase sewer . She gives permission for release of records to discuss this and reports she will notify [facility] so we can obtain information to assist in follow up care. I have spoke with Thais cortes (nurse) with for coordination of care @[phone] (provided by Patient ). She h as [...] | | | | | [place] [address] | | | | | | [phone] | | | | | | | | +--------+---------+ + + + documented as of this encounter Visit Diagnoses Not on filedocumented in this encounter"
--- OUTSIDE RECORDS SUMMARY | ~2020-02-29 | XMS | Encounter Summary ---
Demographics + + + | Address | [address] | | | [place] [address] | + + + | Home Phone [...] Providers + +------+ + | Care Director [employer] Name | Role | Phone | [...] | | [facility] | [address] [facility] | | | | | [facility] | [address] [place], | | | | | [address] | [place] [address] | | | | | [address] | [phone] | | | | | Physician's | | | | | | Pavilion, 1st floor | | | | | | [place], [place] | | | | | | [address] | | | | | | [phone] | | | +--------+ + + + [...] | | + +---------+--------+ + + | [place] DXA BONE | Imaging | Routin | [...]
--- OUTSIDE RECORDS SUMMARY | ~2020-02-29 | XMS | Encounter Summary ---
Demographics + + + | Address | [address] | | | [place] [address] | + + + | Home Phone [...] Team Providers + +------+ + | Care Assignment Manager Name | Role | Phone | [...] 10/28/ | Office | [facility] at [facility] | Lukasz Charles, | Major Depressive | | 2006 | Visit | [address] [place] | PhD [address] | Disorder, Recurrent | | | | Center for Health | [facility] [place] | Episode, Moderate | | | | and Healing, | [address] | ([facility]); Neck Pain; | | | | | [phone] | Herniated Lumbar | | | | Floor [place], [place] | | Intervertebral Disc | | | | [address] | | L4-5; 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 She has been doing cross stitch [...] She has using good self-care skills. Diagnosis: Sullivan I: 1. (296.32) Major depressive disorder, recurrent, moderate. 2. (309.24) Adjustment disorder with anxiety. 3. (307.89) Chronic pain disorder associated with both psychological factors and a gene ral medical condition. Sullivan II: Deferred Sullivan III: abdominal pain, migraine headache, low back pain. Sullivan IV: low finances Sullivan V: GAF 50 Plan: Return in 2 weeks. Check preparation for move and for niece's visit, results of orthopedic visit. Check pacing, relaxation, activity, distraction. Continue cognitive/behavioral the rapy. Total time spent with patient was approximately 45 minutes. LUKASZ CHARLES PHD [facility] [address] [place] [address] And [facility], [address]th [place] [address] documented in this encount er Plan of Treatment + + +--------+ + + | Name | Type | Priori | Associated Diagnoses | Order Schedule | | | | ty | | | + + +--------+ + + | [facility], | Procedures | Routin | Major Depressive | Ordered: 10/28/2006 | | OFFICE (26-56) | | e | Disorder, Recurrent | | | | | | Episode, Moderate | | | | | | ([facility]) Neck Pain | | | | | [...]
--- OUTSIDE RECORDS SUMMARY | ~2020-02-29 | XMS | Encounter Summary ---
Demographics + + + | Address | [address] | | | [place] [address] | + + + | Home Phone [...] Providers + +------+ + | Care Supervisor Tank Cleaning Name | Role | Phone | + [...] | | | | | elsewhere | [place], [place] | [facility] [place] | | | | | classified | [address] | [address] | | | | | Procedures | | Phone: | | | | | [place] | | [phone] | | | | | PSYCHOTHERPY | | Fax: | | | | | , OFFICE | | [phone] | | | | | (04-02) | | | +--------+--------+ + + + + Encounter Details +--------+---------+ + + + | Date | Type | Department | Care Team | Description | +--------+---------+ + + + | 07/15/ | Office | [facility] Center at [facility] | Lukasz Charles, | Major Depressive | | 2006 | Visit | [address] | PhD [address] | Disorder, Recurrent | | | | Center for [facility] | [place], [place] | Episode, Moderate | | | | and Healing, | [address] | ([facility]); Cervical | | | | | [phone] | Spondylosis without | | | | Floor [place], [place] | | Myelopathy; Migraine | | | | [address] | | Headache; | | | | [phone] | | Adjustment Disorder | | | [...] She appears to have good insight. Diagnosis: Ira I: 1. (296.32) Major depressive disorder, recurrent, moderate. 2. (309.24) Adjustment disorder with anxiety. 3. (307.89) Chronic pain disorder associated with both psychological factors and a gene ral medical condition. Ira II: Deferred Ira III: abdominal pain, migraine headache, low back pain. Ira IV: low finances Ira V: GAF 50 Plan: Return in 2 weeks. Check relaxation and activity. Check mood. Continue cognitive/behavio ral therapy. Total time spent with patient was approximately 50 minutes. LUKASZ CHARLES PHD [facility] [address] [facility], 4th [place] [address] documented in this encount er Plan of [...] | | ([facility]) Cervical | | | | | | Spondylosis without | | | | | | Myelopathy Migraine | | | | | | Headache | | | | | | Adjustment Disorder | | | | | | with Anxiety | | + + +--------+ + + | [place] BIOFEEDBACK | Procedures | Routin | Cervical [...]
--- OUTSIDE RECORDS SUMMARY | ~2020-02-29 | XMS | Encounter Summary ---
Demographics + + + | Address | [address] | | | [place] [address] | + + + | Home Phone [...] Providers + +------+ + | Care Human Resource Internship Name | Role | Phone | [...] | | | | L[facility] Physician's | [place], [place] | | | | | [address] | [address] | | | | | [place], [place] | [phone] | | | | | [address] | | | | | | [phone] | | | +--------+ + + + [...] + + + | [facility] | [address] | [place] [address] | | | LABORATORY | | | [...] [facility] | [address] [facility] | [place] [address] | | | PATHOLOGY | [address] [place] | | | + + + + + | [facility] | [address] | [place] [address] | | | PATHOLOGY | [address] | | | + + + + + documented in this encounter Visit Diagnoses Not on filedocumented in this encounter"
--- OUTSIDE RECORDS SUMMARY | ~2020-02-29 | XMS | Encounter Summary ---
Demographics + + + | Address | [address] | | | [place] [address] | + + + | Home Phone [...] Providers + +------+ + | Care Comic Illustrator Name | Role | Phone | [...] | | | | | [address] | [place] | | | | | [place] | [address] | | | | | [address] | | | | | | [phone] | | | +--------+ + + + [...] Electronic Medical Record (EMR) system used by [facility] will be updated. The category used to [...] insure continuity of care. Please contact the [facility] at with any [...] | | [facility] [address] | | | | | | [place] [address] | | | | | | [phone] | | | | | | | | +--------+---------+ + + + documented as of this encounter Visit Diagnoses Not on filedocumented in this encounter"
--- OUTSIDE RECORDS SUMMARY | ~2020-02-29 | XMS | Encounter Summary ---
Demographics + + + | Address | [address] | | | [place] [address] | + + + | Home Phone [...] Providers + +------+ + | Care Corporate Librarian Name | Role | Phone | [...] Medication Refill | | 2018 | | [facility] [address] | MD [place] | | | | | [place], | [address] [place] | | | | | [place] [address] | [place] [address] | | | | | [phone] | [phone] | | | | | | | [...] | | | | | [place] [address] | | | | | | [phone] | | | | | | | | +--------+---------+ + + + documented as of this encounter Visit Diagnoses Not on filedocumented in this encounter"
--- OUTSIDE RECORDS SUMMARY | ~2020-02-29 | XMS | Encounter Summary ---
Demographics + + + | Address | [address] | | | [place] [address] | + + + | Home Phone [...] Team Providers + +------+ + | Care Economics Faculty Member Name | Role | Phone [...] | | 2006 | | Faculty at [place] | MD [address] [facility] | | | | | for Health and | [facility] [place] | | | | | Healing [address] | [address] | | | | | e [place] for | [phone] | | | | | Health and Healing, | | | | | | [facility] | | | | | | [place], [place] | | | | | | [address] | | | | | | [phone] | | | +--------+ + + + [...]
--- OUTSIDE RECORDS SUMMARY | ~2020-02-29 | XMS | Encounter Summary ---
Demographics + + + | Address | [address] | | | [place] [address] | + + + | Home Phone [...] Providers + +------+ + | Care Reel Cart Operator Name | Role | Phone | [...] + + | 05/04/ | Refill | [facility] | Alanis, | Medication Refill | | 2016 | | MEDICINE [address] | MD [place] | | | | | [place], | [address] [facility] | | | | | [place] [address] | [place] [address] | | | | | [phone] | | | | | | | [...] | | | | | [place] [address] | | | | | | [phone] | | | | | | | | +--------+---------+ + + + documented as of this encounter Visit Diagnoses Not on filedocumented in this encounter"
--- OUTSIDE RECORDS SUMMARY | ~2020-02-29 | XMS | Encounter Summary ---
Demographics + + + | Address | [address] | | | [place] [address] | + + + | Home Phone [...] Team Providers + +------+ + | Care Washcloth Folder Name | Role | Phone | [...] as of this encounter Progress Notes Interface, Electrician Control Equipment In - 03/29/2005 5:05 AM PDT [id number] [facility] Date: 03/20/2005 Clinic: Rheumatology [...] sense of disability is 5/10. Her case management assistant needs a note from me that she [...] for the diagnosis of fibromyalgia by the [employer]. She also has the [...] to treat restless legs. There is a blanket washer in [place] who is using large doses to reduce [...] 4 months. Caitlin Rivera M.S., F.N.P. / [id number] / [id number] / [id number] / [id number] cc: Pedrito Gutierrez M.D. [address] [place] [address] [facility] [address] [place] [address] Electronically signed by Caitlin Rivera 03-28-2005 01:43:14 PM documented i n this encounter Plan of Treatment Not on filedocumented as of this encounter Visit Diagnoses Not on filedocumented in this encounter"
--- OUTSIDE RECORDS SUMMARY | ~2020-02-29 | XMS | Encounter Summary ---
Demographics + + + | Address | [address] | | | [place] [address] | + + + | Home Phone [...] Providers + +------+ + | Care Campaign Consultant Name | Role | Phone | [...] of this encounter Progress Notes Interface, Manager Communication In - 01/03/2006 3:[address] [address] or November 01, 2002 Pedrito Gutierrez M.D. [facility] [address] [place] [address] RE: BELINDA MEEHAN MR #: [id number] Dear Dr. Gutierrez: Belinda was seen in [...] be referred for bariatric surgery here at [facility]. We have several physicians who perform the [...] with Dr. Meeks. Sincerely, Maurilio Estrada M.D. / SHARIF [id number] / [id number] / [id number] / Tdocumented in this encounter Plan of Treatment Not on filedocumented as of this encounter Visit Diagnoses Not on filedocumented in this encounter"
--- OUTSIDE RECORDS SUMMARY | ~2020-02-29 | XMS | Encounter Summary ---
Demographics + + + | Address | [address] | | | [place] [address] | + + + | Home Phone [...] Providers + +------+ + | Care Automobile Glass Technician Name | Role | Phone | [...] + + | 08/18/ | Telephone | [facility] Comprehensive | Miranda Lambert, | Follow-up Diabetic | | 2006 | | Pain Center at | ANP | Assessment | | | | [facility] | | | | | | [address] | | | | | | [facility] | | | | | | and Healing, | | | | | | Building | | | | | | [place], [place] | | | | | | [address] | | | | | | [phone] | | | +--------+ + + + [...] will call in a prescriptio n for [place] 10/325 tab 1 po q 4 hrs NTE 5qd. She is scheduled to see you in f/u August 26. documented in this encou nter Plan of Treatment Not on filedocumented as of this encounter Visit Diagnoses Not on filedocumented in this encounter
--- OUTSIDE RECORDS SUMMARY | ~2020-02-29 | XMS | Encounter Summary ---
Demographics + + + | Address | [address] | | | [place] [address] | + + + | Home Phone [...] Providers + +------+ + | Care Supervisor Chlorine Liquefaction Name | Role | Phone | + [...] | Procedures | [address] | [facility] [address] | | | | | CONSULT TO | Bethanie | [address] | | | | | BONE | [place], [place] | [facility] | | | | | DENSITOMETRY | [address] | Mailcode: | | | | | | Phone: | [address] | | | | | | [phone] | [address] | | | | | | Fax: | [place], [place] | | | | | | [phone] | [address] | | | | | | | Phone: | | | | | | | [phone] | | | | | | | Fax: | | | | | | | [phone] | +--------+--------+ + + + + Encounter Details +--------+ + + + + | Date | Type | Department | Care Team | Description | +--------+ + + + + | 07/24/ | Hospital | Endocrinology, | Sjh, Bmd Dexa | | | 2008 | Encounter | Diabetes and | [address] | | | | | Clinical Nutrition | [facility], | | | | | [address] | [place] | | | | | [place] Mailcode: | | | | | | [address] | | | | | | [place], [place] | | | | | | [address] | | | | | | [phone] | | | +--------+ + + + [...] from the Results section by P Interface [[id number]] on | | | 04/17/2009 at 5:16 PM (File: [id number]*O*[id number]) | | + + + BONE DENSITOMETRY [...]
--- OUTSIDE RECORDS SUMMARY | ~2020-02-29 | XMS | Encounter Summary ---
Demographics + + + | Address | [address] | | | [place] [address] | + + + | Home Phone [...] Providers + +------+ + | Care Sql Developer Name | Role | Phone | [...] + + | 03/02/ | Telephone | [facility] | Alanis, | Results, Imaging | | 2017 | | [facility] [address] | MD Petrona | | | | | [place], | [address] [place] | | | | | [place] [address] | [place] [address] | | | | | [phone] | [phone] | | | | | | | [...] amaris e to come in please call [phone].Electronically signed by Bob Tinoco at 02/13 12:42 [...] | | | | | [place] [address] | | | | | | [phone] | | | | | | | | +--------+---------+ + + + documented as of this encounter Visit Diagnoses Not on filedocumented in this encounter"
--- OUTSIDE RECORDS SUMMARY | ~2020-02-29 | XMS | Encounter Summary ---
Demographics + + + | Address | [address] | | | [place] [address] | + + + | Home Phone [...] Team Providers + +------+ + | Care Prescriptionist Name | Role | Phone | + [...] + + | 03/19/ | Telephone | [facility] of | Carlos Arreola, | Erroneous Encounter | | 2005 | | Gastroenterology/Hep | [address] | - Disregard (ERROR) | | | | atology [address] | [address] | | | | | [address] | [place] [address] | | | | | Mailcode: [id number] | [phone] | | | | | [facility] | | | | | | [address] | | | | | | [place], [place] | | | | | | [address] | | | | | | [phone] | | | +--------+ + + + [...]
--- OUTSIDE RECORDS SUMMARY | ~2020-02-29 | XMS | Encounter Summary ---
Demographics + + + | Address | [address] | | | [place] [address] | + + + | Home Phone [...] Providers + +------+ + | Care Fire Assistant Name | Role | Phone | [...] Acute pain | Emmy-Tajt | [address] | | | | | of right | i, | [place], | | | | | shoulder | [place] | [place] | | | | | Procedures | , [address] | [address] | | | | | MRI Shoulder | [address] | Phone: | | | | | Right wo | [place], | [phone] | | | | | Contrast | [place] | Fax: | | | | | | [address] | [phone] | | | | | | Phone: | | | | | | | [phone] | | | | | | | Fax: | | | | | | | [phone] | | +--------+--------+ + + + + [...] Acute pain | Emmy-Tajt | [address] | | | | | of right | i, | [place], | | | | | shoulder | [place] | [place] | | | | | Procedures | , [address] | [address] | | | | | MRI Shoulder | [address] | Phone: | | | | | Right wo | [place], | [phone] | | | | | Contrast | [place] | Fax: | | | | | | [address] | [phone] | | | | | | Phone: | | | | | | | [phone] | | | | | | | Fax: | | | | | | | [phone] | | +--------+--------+ + + + + Encounter Details +--------+ + + + + | Date | Type | Department | Care Team | Description | +--------+ + + + + | 02/17/ | Hospital | [facility] | Alanis, | Acute pain of right | | 2018 | Encounter | MED CTR MRI [address] | MD [place] | shoulder | | | | [address] [place], | [address] [place] | | | | | [place] [address] | [place] [address] | | | | | [phone] | [phone] | | | | | | | [...] | | | | | [place] [address] | | | | | | [phone] | | | | | | | [...]
--- OUTSIDE RECORDS SUMMARY | ~2020-02-29 | XMS | Encounter Summary ---
Demographics + + + | Address | [address] | | | [place] [address] | + + + | Home Phone [...] Providers + +------+ + | Care A Auxiliary Name | Role | Phone | + [...] [place] | | | | | [place] [address] | [place] [address] | | | | | [phone] | [phone] | | | | | | | [...] | | | | | [place] [address] | | | | | | [phone] | | | | | | | | +--------+---------+ + + + documented as of this encounter Visit Diagnoses Not on filedocumented in this encounter"
--- OUTSIDE RECORDS SUMMARY | ~2020-02-29 | XMS | Encounter Summary ---
Demographics + + + | Address | [address] | | | [place] [address] | + + + | Home Phone [...] Providers + +------+ + | Care Container Filler Name | Role | Phone | [...] | | | | Mailcode: [id number] | [place], [place] | | | | | [facility] | [address] | | | | | [address], [place] | [phone] | | | | | [address] | | | | | | [phone] | | | +--------+ + + + [...] 12/24/2005 9:22 AM PDTPt [facility] Pt was given injections [...]
--- OUTSIDE RECORDS SUMMARY | ~2020-02-29 | XMS | Encounter Summary ---
Demographics + + + | Address | [address] | | | [place] [address] | + + + | Home Phone [...] Team Providers + +------+ + | Care Restrictive Preparation Operator Name | Role | Phone | [...] [place] | | | | | [place] [address] | [place] [address] | | | | | [phone] | [phone] | | | | | | | [...] | | | | | [place] [address] | | | | | | [phone] | | | | | | | | +--------+---------+ + + + documented as of this encounter Visit Diagnoses Not on filedocumented in this encounter"
--- OUTSIDE RECORDS SUMMARY | ~2020-02-29 | XMS | Encounter Summary ---
Demographics + + + | Address | [address] | | | [place] [address] | + + + | Home Phone [...] + | 07/16/ | Telephone | [facility] | Alanis, | Results, Imaging | | 2017 | | [facility] [address] | MD [place] | | | | | [place], | [address] [place] | | | | | [place] [address] | [place] [address] | | | | | [phone] | [phone] | | | | | | | [...] 3:40 PM PSTReceived call from [facility] reporting negative D[facility]. notifiedElectronically signed by [...] | | | | | [place] [address] | | | | | | [phone] | | | | | | | | +--------+---------+ + + + documented as of this encounter Visit Diagnoses Not on filedocumented in this encounter"
--- OUTSIDE RECORDS SUMMARY | ~2020-02-29 | XMS | Encounter Summary ---
Demographics + + + | Address | [address] | | | [place] [address] | + + + | Home Phone [...] Team Providers + +------+ + | Care Resistance Machine Welder Setter Name | Role | Phone | [...]
--- OUTSIDE RECORDS SUMMARY | ~2020-02-29 | XMS | Encounter Summary ---
Demographics + + + | Address | [address] | | | [place] [address] | + + + | Home Phone [...] Providers + +------+ + | Care Electrician Constructor Supervisor Name | Role | Phone | [...] + + | 05/11/ | Telephone | [facility] | Alanis, | Results | | 2016 | | MEDICINE [address] | MD Petrona | | | | | [place], | [address] [facility] [place] | | | | | [place] [address] | [place] [address] | | | | | [phone] | [phone] | | | | | | | [...] Tamara Elliott RN - 05/12/2017 4:38 PM PSTDr. Emmy reviewed xray result. Based on results he asked that patient be contacted to see if she would like to have an MRI so there is a clearer picture of how the loose hardware is actually affecting the surroundi ng tissues. Pt would like to have this done, agrees to have it done here rather than [facility]. She denies any claustrophobia so she is able to have MRI without that concern. She is concerned with being able to manage her pain while she has to lay still for that reanna unt of time. She would like something ordered specifically for that time period. She does not drive so that is not a concern. elephone EncounTamara Murray RN - 05/12/2017 2:44 PM PSTCalled to patient to inform her that we do not have those xray results yet. She states [facility] in [place] said they sent them to us but I explained to her that if they mailed them then the results will be processed as scanned media document and that take s some time. Will attempt to get imaging reports expedited from [facility]. elephone EncounAlan Riggs - 05/12/2017 1:36 PM PSTPatient is calling on status of xray i n [place], [place]. Patient is asking for a call back. elephone Encounter - Alan Odell - 2016 3:53 PM PSTPatient called back regarding image results elephone Encounter - Alan Odell - 05/11/2017 9:24 AM PSTContact/Caller: Belidna Contact Number: [phone] Provider/Nurse: Emmy Reason for Call: Patient's is asking about image results done on Thursday in [facility]. Shaniae nt also is asking that the results be sent to doctor in [place]. Please advise. Last Appointment: 05-04-17 Next Appointment: documented in th is encounter Plan of Treatment +--------+---------+ + + + | Date | Type | Specialty | Care Team | Description | +--------+---------+ + + + | 05/17/ | Office | Internal Medicine | Alanis, | | | 2019 | Visit | | MD Petrona | | | | | | [address] [facility] | | | | | | [place] [address] | | | | | | [phone] | | | | | | | | +--------+---------+ + + + documented as of this encounter Visit Diagnoses + + | Diagnosis | + + | Acute bilateral low back pain with bilateral sciatica - Primary | + + documented in this encounter"
--- OUTSIDE RECORDS SUMMARY | ~2020-02-29 | XMS | Encounter Summary ---
Demographics + + + | Address | [address] | | | [place] [address] | + + + | Home Phone [...] Providers + +------+ + | Care Express Manager Name | Role | Phone | [...] 09/09/ | Office | [facility] | Lukasz Charles, | Major Depressive | | 2006 | Visit | [address] | PhD [address] | Disorder, Recurrent | | | | Center for Health | [place], [place] | Episode, Moderate | | | | and Healing, | [address] | ([facility]); DJD | | | | | [phone] | (Degenerative Joint | | | | Floor [facility] [place] | | Disease) of Left | | | | [address] | | Knee; Neck Pain; | | | | [phone] | | Herniated Lumbar | | | [...] We d iscussed her desires to join [employer] and she made a plan to call [...] is making an effort to improve. Diagnosis: [place] I: 1. (296.32) Major depressive disorder, recurrent, moderate. 2. (309.24) Adjustment disorder with anxiety. 3. (307.89) Chronic pain disorder associated with both psychological factors and a gene ral medical condition. [place] II: Deferred [place] III: abdominal pain, migraine headache, low back pain. [place] IV: low finances [place] V: GAF 50 Plan: Return in 2 weeks. Check preparation for niece's visit, [employer], pacing, relaxation, ac tivity, distraction. Check managing Pain... book. Continue cognitive/behavioral therapy. Total time spent with patient was approximately 45 minutes. LUKASZ CHARLES PHD [facility] [address] [facility], 4th [place] [address] documented in this encount er Plan of Treatment + + +--------+ + + | Name | Type | Priori | Associated Diagnoses | Order Schedule | | | | ty | | | + + +--------+ + + | AR PSYCHOTHERPY, | Procedures | Routin | Major Depressive | Ordered: 09/09/2006 | | OFFICE (70-18) | | e | Disorder, Recurrent | | | | | | Episode, Moderate | | | | | | ([facility]) DJD | | | | | | [...]
--- OUTSIDE RECORDS SUMMARY | ~2020-02-29 | XMS | Encounter Summary ---
Demographics + + + | Address | [address] | | | [place] [address] | + + + | Home Phone [...] Providers + +------+ + | Care Executive Office Manager Name | Role | Phone [...] + + | 05/29/ | Office | [facility] | Delfina Molina, | Chronic Abdominal | | 2005 | Visit | Pain Center at | ANP | Pain; Cervical Pain; | | | | [facility] | | Joint pain 719.40; | | | | [address] | | Depression | | | | [place] for [facility] | | | | | | and Healing, | | | | | | Building | | | | | | Floor [place], [place] | | | | | | [address] | | | | | | [phone] | | | +--------+---------+ + + + [...] a Physical Therapy evaluation here at the [facility] in [place]. 3. Patient will be referred for a Psychology evaluation here at the [facility]. 4. Following the completion of these [...] Belinda Meehan is a 46 y.o. female [id number] Chief Complaint: Patient presents with: Pain - [...] as PAIN MEDICINES: Opioids: Hydrocodone (Vicodin, Lortab, [place]): Why stopped?: don't remember. Came off due [...] a Physical Therapy evaluation here at the [facility]. 3. Patient will be referred for a Psychology evaluation here at the [facility] er. 4. Following the completion of [...] you for [facility] [place] [facility]. I trust that you will find the recomm endations satisfactory and that you will be able to implement these in the care of your mehreen ent. Should you have any concerns or questions, please contact me, I would be happy to add ress those with you. DELFINA MOLINA [facility] Mail code CH 4P [facility] and [address] [phone] meryTasha - 05/29/2006 1:51 PM PSTInitial Evaluation [...] drinking? no -Do you ever drink an eye-plant buyer in the morning to relieve the shakes? [...] stressful life experiences recently? 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 What [...]
--- OUTSIDE RECORDS SUMMARY | ~2020-02-29 | XMS | Encounter Summary ---
Demographics + + + | Address | [address] | | | [place] [address] | + + + | Home Phone [...] Team Providers + +------+ + | Care Dural Mechanic Name | Role | Phone | [...] as of this encounter Procedure Notes Interface, Sample Body Builder In - 06/05/2005 5:20 AM PSTDate: Attending Surgeon: Chris Padgett M.D. Surgical Appliances Salesperson(s): Ramon Valentine M.D. Preoperative Diagnosis: Morbid obesity. Postoperative Diagnosis(es): Morbid obesity. Procedures Performed: 1. Laparoscopic Zoe-en-Y gastric bypass. 2. Laparoscopic lysis of adhesions. Anesthesia: General endotracheal anesthesia. Estimated Blood Loss: 100 mL. Complications: None immediate. Specimens: None. Indications: This 43-year-old woman has morbid obesity. She is 5 feet 10 inches tall and weighs 333 pounds. After discussion of all her options, she has chosen to undergo gastric bypass. Findings: Prior lower anterior wall abdominal scarring secondary to her hysterectomy and oophorectomy with dense adhesions through the omentum on this which were lysed. The liver was large and appeared slightly infiltrated. We constructed a Zoe-en-Y gastric bypass with a 50-cm biliary limb and a 150-cm Zoe limb which was brought up to antecolic and antegastric. Procedure: After informed consent had been obtained and perioperative antibiotics were administered, the patient was taken to the Operating Room, laid in supine position, and general anesthesia was induced. Next, sequential compression devices were placed on her legs, a Baker catheter in her bladder, and a bariatric orogastric tube in her stomach. The abdomen was prepped and draped in the usual sterile manner. We established pneumoperitoneum through an umbilical stab incision, placed a camera port approximately 6 cm up from the umbilicus just to the right of the midline. After placing our laparoscope, cursory examination was as mentioned above. We placed a left lateral abdominal 5-mm port and using this took down some middle lower abdominal adhesions through the anterior abdominal wall to allow us to place a lower working port which was 12 mm and was placed approximately 4 cm to the right of the umbilicus. Once this was placed, we took down the remainder of the adhesions and placed our right subcostal port which was also 12 mm. We pulled back the omentum located at the ligament of Treitz, stepped off 50 cm from this, and then transected the bowel and the mesentery with 2 firings of an Endo ANALI white load stapler. We had tagged the distal transecting ends of bowel, stepped along this a further 150 cm, and at this point brought our proximal transected portion down and did a hxpj-es-zbnm stapled jejunojejunostomy using a single firing blue load Endo ANALI stapler. Resulting enterotomy was closed using a running 2-0 Vicryl which was also used to pledget the closure. We then divided our omentum down to the colon, turned our attention to the upper abdomen area. Subxiphoid 5-mm port was placed, and through this a Nga retractor was placed in the abdominal cavity to plug up against the left lobe of the liver and held in place with a laparoscopic Bookwalter. We placed a left subcostal 12-mm working port around the nipple line. With these in place, we cleared off the angle of His. We inflated the bariatric orogastric balloon to 30 cm, and using this as a guide, created a 30 to 40 mL pouch around this using about 5 firings of the Endo ANALI blue load stapler. We then brought our Zoe limb up to this antecolic and antegastric and performed a nlzf-ee-evjh gastrojejunostomy after placing a posterior interrupted row of 2-0 Vicryl sutures. The gastroenterostomy was fashioned using a single firing of the Endo ANALI blue load stapler, and the resulting enterotomy was closed over the orogastric tube using a running 2-0 Vicryl. Interrupted 2-0 Vicryls were then used to buttress the anterior wall of this closure. The anastomosis was tested with 100 mL of methylene blue, and there was no evidence of a leak. This was aspirated as the orogastric tube was removed from the stomach, and then our retractors and ports were sequentially withdrawn under direct visualization. As the patient had history of gallstones, we examined the gallbladder and found there to be no evidence of acute inflammation and thus decided not to proceed with the cholecystectomy. Once the ports were withdrawn, the pneumoperitoneum was evacuated. The incisions were washed, dried, and the skin was closed using subcuticular Vicryl suture. Steri-Strips and sterile dressing were applied. The patient was then awoken from anesthesia and transported without complications to the PACU. Ramon Valentine M.D. Chris Padgett M.D. MOOKIE / SHARIF [id number] / [id number] / [id number] / [id number] Tdocumented in this encounter Plan of Treatment [...] | Transcriptions | + + | Interface, Sample Body Builder In - 06/05/2005 5:20 AM PST Date: | | 11/22/2003Attending Surgeon: Chris Padgett M.D.Surgical Appliances Salesperson(s): | | Ramon Valentine M.D.Preoperative Diagnosis:Morbid obesity.Postoperative [...] our proximal transected portion down and did syrgj-lt-snpc stapled jejunojejunostomy | | using a single [...] to this antecolic and antegastric andperformed a zunu-jx-jfss gastrojejunostomy | | after placing a posteriorinterrupted [...] Valentine | | Syed Padgett M.D.MOOKIE / [id number] / [id number] / [id number] / [id number]: 11/22/2003T: | | 11/22/2003 | |cm to [...] transected portion down and did a | |satn-hm-egsa stapled jejunojejunostomy using a single firing blue [...] antecolic and antegastric and | |performed a qtcp-kz-snha gastrojejunostomy after placing a posterior | |interrupted [...] Padgett M.D. | | | |MOOKIE / HS | |[id number] / [id number] / [id number] / [id number] | | | | | + + documented in this encounter Visit Diagnoses Not on filedocumented in this encounter"
--- OUTSIDE RECORDS SUMMARY | ~2020-02-29 | XMS | Encounter Summary ---
Demographics + + + | Address | [address] | | | [place] [address] | + + + | Home Phone [...] Providers + +------+ + | Care Director Pharmacovigilance Name | Role | Phone | + [...] | | | | laterality | [place] [address] | [place] | | | | | Procedures | Phone: | [address] | | | | | MRI Brain w | [phone] | Phone: | | | | | wo Contrast | Fax: | [phone] | | | | | [place] MRI | [phone] | Fax: | | | | | BRAIN COMBO | | [phone] | +--------+--------+ + + + + Reason [...] | | | escu | [place]ON[place] | [address] Phone: | | | | | Procedures | [place], | [phone] | | | | | OFFICE VISIT | [place] | Fax: | | | | | REGULAR | [address] | [phone] | | | | | | Phone: | | | | | | | [phone] | | | | | | | Fax: | | | | | | | [phone] | | +--------+--------+ + + + + [...] | laterality (Primary | | | | [place], [place] | [address] | Dx) | | | | [address] | | | | | | [phone] | | | +--------+---------+ + + + [...] MD - 10/18/2014 10:50 AM PDT [facility] OTOLARYNGOLOGY [address] [place] [address] OFFICE NOTE ULYSSES DSOUZA MD Patient: BELINDA MEEHAN Admitting: MR #: [id number] LOC: PT TYPE: Adm Date: 10/18/2014 : [...] Transcribed on 10/18/2014 11:06:48 by cmv job# [id number] Confirmation #: [id number] signed by Ulysses Dsouza MD at 10/18/2014 12:48 PM PDT Ulysses Dosuza MD - 10/18/2014 10:45 AM PDTSee dictation # [id number] signed by Ulysses Dsouza MD at 10/18/2014 10:51 AM PDTdocumented in th is encounter Plan of Treatment +--------+---------+ + + + | Date | Type | Specialty | Care Team | Description | +--------+---------+ + + + | 05/17/ | Office | Internal Medicine | Alanis, | | | 2019 | Visit | | MD Petrona | | | | | | [address] [place] [address] [place] | | | | | | [place] [address] | | | | | | [phone] | | | | | | | [...]
--- OUTSIDE RECORDS SUMMARY | ~2020-02-29 | XMS | Encounter Summary ---
Demographics + + + | Address | [address] | | | [place] [address] | + + + | Home Phone [...] | [facility] [place] | | | [...] Providers + +------+ + | Care Marine Electrician Apprentice Name | Role | Phone | [...] + + | 03/02/ | Telephone | [facility] | Alanis, | Paperwork | | 2016 | | MEDICINE [address] [place] [address] | MD Petrona | | | | | [place], | [address] [facility] | | | | | [place] [address] | [place] [address] | | | | | [phone] | [phone] | | | | | | | [...] - 03/02/2017 10:53 AM PDTSpoke with patient ryland colin explained the process for referrals in the [facility] system. She will wait a couple days and call the pain clinic or us to see where things are in the p rocess. She is anxious but accepting of the delays r/t insurance authorization. elephone Alan Ennis - 03/02/2017 10:00 AM PDTPatient calling on the status of refer ral. elephone Tuan Grimes - 03/02/2017 8:14 AM PDTContact/Caller: Belinda Contact Number: [phone] Provider/Nurse: Emmy Reason for Call: Pt calling in stating [facility] and were advised they did not receive [...] | | | | | | [facility] [address] | | | | | | [place] [address] | | | | | | [phone] | | | | | | | | +--------+---------+ + + + documented as of this encounter Visit Diagnoses Not on filedocumented in this encounter"
--- OUTSIDE RECORDS SUMMARY | ~2020-02-29 | XMS | Encounter Summary ---
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 1960 Start of Care: 06/23/2006 Referring Provider: [...] patient has increased her walking time at [employer] to 30-40 minutes daily, no t able [...]
--- OUTSIDE RECORDS SUMMARY | ~2020-02-29 | XMS | Encounter Summary ---
Demographics + + + | Address | [address] | | | [place] [address] | + + + | Home Phone [...] Providers + +------+ + | Care Polisher Numeral Name | Role | Phone | + [...] Bethanie | | | | | | [facility] | | | | | | and Healing, | | | | | | Building | | | | | | Floor [place], [place] | | | | | | [address] | | | | | | [phone] | | | +--------+ + + + [...] Notes Telephone Encounter - Ignacio Hernandez - 11/22/2009 9:46 AM PDTMs.Shefali continues to have prob lems with her pain and wants to know if Miranda would like to see her to make further recomme ndations to . She [place] from [place] and wants to make sure that h er trip and visit to the [facility] could help in assisting her and her PCP with managing her chron ic pain. documented in this enco unter Plan of Treatment Not on filedocumented as of this encounter Visit Diagnoses Not on filedocumented in this encounter"
--- OUTSIDE RECORDS SUMMARY | ~2020-02-29 | XMS | Encounter Summary ---
Demographics + + + | Address | [address] | | | [place] [address] | + + + | Home Phone [...] Providers + +------+ + | Care Assistant Terminal Manager Name | Role | Phone | [...] + + | 08/23/ | Refill | [facility] | Alanis, | Medication Refill | | 2017 | | MEDICINE [address] | MD Petrona | | | | | [place], | [address] [facility] | | | | | [place] [address] | [place] [address] | | | | | [phone] | [phone] | | | | | | | [...] | | | | | [place] [address] | | | | | | [phone] | | | | | | | | +--------+---------+ + + + documented as of this encounter Visit Diagnoses Not on filedocumented in this encounter"
--- OUTSIDE RECORDS SUMMARY | ~2020-02-29 | XMS | Encounter Summary ---
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 | [phone] | scoliosis, lumbar | | | | [...] COLONOSCOPY; Surgeon: Luther Brito MD; Location: [facility] DILATION AND CURETTAGE OF UTERUS ELBOW SURGERY FINGER TRIGGER RELEASE 2002 FINGER TRIGGER RELEASE 2009 GASTRIC BYPASS SURGERY 2004 HYSTERECTOMY 05/14/1980 JOINT REPLACEMENT Bilateral 2006 2007 KNEE ARTHROSCOPY 2005 LAPAROSCOPY 01/27/2015 LAPAROTOMY 2008 ROTATOR CUFF REPAIR 2005 SPINE SURGERY TONSILLECTOMY 1964 UPPER GASTROINTESTINAL ENDOSCOPY N/A 12/18/2017 Procedure: EGD; Surgeon: Luther Brito MD; Location: [facility] CURRENT MEDICATIONS Current Outpatient [...] Allergen Reactions Ensure Diarrhea Food Diarrhea Lactose Chmqbmlnpl-Bbj-Nvue-Codeine Other (See Comments) Balance problems Codeine Sulfate Nausea Only Food Allergy Formula Diarrhea Ensure Levofloxacin Hives, Itching and Rash Butalbital Ropinirole Amitriptyline Hcl Other (See Comments) Confused and questionable for seizures Lsytrylweh-Vumh-Sdbaqvlw Rash duplicate Mcczzbvbil-Kjta-Stwpcwyl Hives and Rash Cephalexin Hives Ciprofloxacin Hives and Rash Clarithromycin Hives and Rash Clindamycin Hcl Hives and Rash Doxycycline Rash Duloxetine Other (See Comments) Migraines and nausea Ketorolac Hives Levofloxacin Hives and Rash Morphine Swelling Penicillins Hives and Rash Ropinirole Hcl Hives Sulfamethoxazole-Trimethoprim Hives and Rash Tramadol Hcl Nausea Only FOLLOW-UP No follow-ups on file. Notes: 1. Parts of this documentwere created using [employer] speech recognition software. As a resu lt, [...] [place] | | | | | | [place] [address] | | | | | | [phone] | | | | | | | [...] [address] | [place] | [phone] | | [facility] | | [address] | | | - LABORATORY | | [...]
--- OUTSIDE RECORDS SUMMARY | ~2020-02-29 | XMS | Encounter Summary ---
Demographics + + + | Address | [address] | | | [place] [address] | + + + | Home Phone [...] Providers + +------+ + | Care Control Clerk Subassembly Name | Role | Phone | + [...] + + | 04/29/ | Telephone | [facility] | Alanis, | Medication Refill | | 2017 | | MEDICINE [address] | MD Petrona | Assistance | | | | [place], | [address] [facility] | | | | | [place] [address] | [place] [address] | | | | | [phone] | [phone] | | | | | | | [...] | | | | | [place] [address] | | | | | | [phone] | | | | | | | | +--------+---------+ + + + documented as of this encounter Visit Diagnoses Not on filedocumented in this encounter"
--- OUTSIDE RECORDS SUMMARY | ~2020-02-29 | XMS | Encounter Summary ---
Demographics + + + | Address | [address] | | | [place] [address] | + + + | Home Phone [...] Providers + +------+ + | Care Ring Stamper Name | Role | Phone | [...] | | | | | Encounter | [place], [place] | [place] | | | | | for | [address] | [address] | | | | | long-term | | Phone: | | | | | (current) | | [phone] | | | | | use of other | | Fax: | | | | | medications | | [phone] | | | | | LBP (low [...] 08/09/ | Office | [facility] | Lukasz Charles, | Major depressive | | 2013 | Visit | [address] | PhD [address] | disorder, recurrent | | | | Center [facility] | [place], [place] | episode, moderate | | | | and Healing, | [address] | ([facility]) (Primary Dx); | | | | | [phone] | LBP (low back pain); | | | | Floor [place], [place] | | Fibromyalgia; | | | | [address] | | Adjustment disorder | | | | [phone] | | with anxiety | +--------+---------+ + [...] gives her a lot of motivation. Diagnosis: Gattman I: 1. (296.32) Major depressive disorder, recurrent, moderate. 2. (309.24) Adjustment disorder with anxiety. Gattman II: Deferred Gattman III: abdominal pain, migraine headache, low back pain, fibromyalgia. Gattman IV: low finances Gattman V: GAF 55-60 Plan: return in 1 month. Check mood, pain, activity, stress management. Ask about any ch anges at home, taking care of her own self, sleeping. Continue cognitive/behavioral therapy . Total time spent with patient was approximately 45 minutes. LUKASZ CHARLES PHD [facility] [address] [place] [address] And [facility], 4th [place] [address] documented in this en counter Plan of [...]
--- OUTSIDE RECORDS SUMMARY | ~2020-02-29 | XMS | Encounter Summary ---
Demographics + + + | Address | [address] | | | [place] [address] | + + + | Home Phone [...] +------+ + | Care Electrical And Radio Mechanic Name | Role | Phone | [...] Thoracic or | [place], | [address] | | | | | lumbosacral | Carlos Armijo MD | [place], | | | | | neuritis or | [address] | [place] | | | | | | ST [place] | [address] | | | | | radiculitis, | [place], [place] | Phone: | | | | | unspecified | [address] | [phone] | | | | | Procedures | Phone: | Fax: | | | | | AL INJECT | [phone] | [phone] | | | | | ANES/STEROID | Fax: | | | | | | FORAMEN | [phone] | | | | | | LUMBAR/SACRA | | | | | | | L W IMG | | | | | | | GUIDE ,1 | | | | | | | LEVEL AL | | | | | | [...] + + | 01/19/ | Hospital | [facility] | Carlos Hsieh | Lumbar radiculopathy | | 2015 | Encounter | MED CTR XRAY [address] | TMD [address] | primarily right | | | | [address] [place] | [facility] | | | | | [place] [address] | [address] | | | | | [phone] | | | | | | | Rug ScratcherKristyn | | | | | | qasim [...] | | | | | | [address] [facility] | | | | | | [place] [address] | | | | | | [phone] | | | | | | | [...] radiculopathy ICD-9 Code 724.4 Belinda Basilio | [facility] | | Shefali presents to the fluoroscopy suite for [facility] | | fluoroscopically-guided bilateral L5-S1 transforaminal [...] + + + + + | [facility] | [address] | [place], [place] | [phone] | | [facility] | | [address] | | | - IMAGING | | [...]
--- OUTSIDE RECORDS SUMMARY | ~2020-02-29 | XMS | Encounter Summary ---
Demographics + + + | Address | [address] | | | [place] [address] | + + + | Home Phone [...] + +------+ + | Care Varnish Melter Helper Name | Role | Phone | [...] | Center [address] | [address] [facility] | | | | | Bethanie Mailcode: CH4S | [facility] | | | | | [facility] | [place], [place] | | | | | and [facility], | [address] | | | | | [place] [address] | [phone] | | | | | Floor [place], [place] | | | | | | [address] | | | | | | [phone] | | | +--------+ + + + [...] [place] [address] [place] [id number] documented in this encoun ter Plan of Treatment Not on filedocumented as of this encounter Visit Diagnoses Not on filedocumented in this encounter
--- OUTSIDE RECORDS SUMMARY | ~2020-02-29 | XMS | Encounter Summary ---
Demographics + + + | Address | [address] | | | [place] [address] | + + + | Home Phone [...] Providers + +------+ + | Care International Project Manager Name | Role | Phone | + +------+ + | Petrona Thapa | PCP | | | MD | | | + +------+ + Encounter Details +--------+ + + + + | Date | Type | Department | Care Team | Description | +--------+ + + + + | 12/18/ | Hospital | [facility] | Luther Brito MD | Abdominal pain, | | 2018 | Encounter | MED CTR MP INTRA OP | [address] | unspecified | | | | [address] | [place], [place] | abdominal location; | | | | [place], [place] | [address] | Gastroesophageal | | | | [address] | [phone] | reflux disease, | | | | [phone] | | esophagitis presence | | | [...] You can't be awakened Date Last Reviewed: 04/01/201619994101-8941 [employer]. [address] [place] [address]. All righ ts reserved. This information is [...] (See Comments) Confused and questionable for seizures Bsvgznzqug-Hzfa-Dpnzfncs Hives and Rash Cephalexin Hives Ciprofloxacin Hives [...] Electronically Signed by: Luther Brito MD 12/18/[address] [facility] Portions of this chart may have been created with [employer] voice recognition software. Occasi onal wrong-word or [...] Endoscopy Patient: Belinda Rodriguez : 1960 Acct: [id number] Exam Date: Monday, December 18, 2017 Doctor: [...] If unable to reach your physician, call [facility] Emergency Department at Ext. 2500 Your doctor [...] Exams Patient: Belinda Rodriguez : 1960 Acct: [id number] Exam Date: Monday, December 18, 2017 Doctor: [...] If unable to reach your physician, call [facility] Emergency Department at [address]. [address] Your doctor [...] KAY | | | | | | [place] [address] | | | | | | [phone] | | | | | | | [...] 12/18/2017 | PROVATION | | 10:49 AMMRN: [id number] #: [id number] of : | | | 9Admit Type: AmbulatoryAge: 57Room: [facility] 01Gender: FemaleNote | | | Status: [...] the anesthesiologist and the | | | infectious waste technician in the pre-procedure area in the [...] | appearing mucosa. This was traversed. The yrdzt-ld-cqswbwn limb | | | was characterized by healthy appearing mucosa. The | | | jejunojejunal anastomosis was characterized by healthy | | | appearing mucosa. The ypljfuaf-gv-facrpgx limb was not examined | | | [...] Out: | | | 11:08:[address] [facility], [address] | | | [place] [address] | | | - Return to GI [...] Out: 11:08:34 AM | | | [facility], [address] [place], [place] | | | [address] | | + + -+ + +---------+ [...] 12/18/2017 | PROVATION | | 10:43 AMMRN: [id number] #: [id number] of : | | | 9Admit Type: AmbulatoryAge: 57Room: [facility] 01Gender: FemaleNote | | | Status: [...] the anesthesiologist and the | | | infectious waste technician in the pre-procedure area in the [...] Scope In: 11:12:28 AMScope Out: 11:56:57 AM Achille | | | [facility], [facility] [place] [address] | | | [phone] | | | - Await pathology results. [...] Out: 11:56:57 AM | | | [facility], [address] [place] [address], [place], [place] | | | [address] | | + + -+ + +---------+ [...] for specific diagnostic abnormality. | | | VR:cox monett:C2NR GROSS DESCRIPTION: Received in five parts. | [...] | | slide preparation were performed by [employer], [facility] | | | St, [address], [place] [address] (Admitting Counselor: Stephen Jacobson | | | Joanna CLIA#: [id number]). Professional interpretation was performed | | | by [employer], [facility], [facility] | | | [place] [address] (Admitting Counselor: Stephen | | | Joanna Jacobson; CLIA#: [id number]). Diagnostician: Stephen Khan | | | Kavon [...]
--- OUTSIDE RECORDS SUMMARY | ~2020-02-29 | XMS | Encounter Summary ---
Demographics + + + | Address | [address] | | | [place] [address] | + + + | Home Phone [...] Team Providers + +------+ + | Care Veterans Contact Representative Name | Role | Phone | [...] + + | 10/11/ | Telephone | [facility] | Alanis, | LABS | | 2018 | | MEDICINE [address] | MD Petrona | | | | | [place], | [address] [facility] | | | | | [place] [address] | [place] [address] | | | | | [phone] | [phone] | | | | | | | [...] needing labs please sent orders to inter path labs in [place]. Veto lentz signed by Bob Tinoco at 10/11/2018 10:46 AM PDTdocumented in this encounter Plan of Treatment +--------+---------+ + + + | Date | Type | Specialty | Care Team | Description | +--------+---------+ + + + | 05/17/ | Office | Internal Medicine | Alanis, | | | 2019 | Visit | | MD Petrona | | | | | | [address] [place] [address] | | | | | | [place] [address] | | | | | | [phone] | | | | | | | | +--------+---------+ + + + documented as of this encounter Visit Diagnoses + + | Diagnosis | + + | Osteoporosis, unspecified osteoporosis type, unspecified pathological fracture | | presence - Primary | + + documented in this encounter"
--- OUTSIDE RECORDS SUMMARY | ~2020-02-29 | XMS | Encounter Summary ---
Demographics + + + | Address | [address] | | | [place] [address] | + + + | Home Phone [...] Providers + +------+ + | Care Heel Stainer Name | Role | Phone | + [...] + + | 09/04/ | Refill | [facility] | Alanis, | Medication Refill | | 2018 | | MEDICINE [address] | MD Petrona | | | | | [place], | [address] [facility] | | | | | [place] [address] | [place] [address] | | | | | [phone] | [phone] | | | | | | | [...] [place] | | | | | | [place] [address] | | | | | | [phone] | | | | | | | | +--------+---------+ + + + documented as of this encounter Visit Diagnoses Not on filedocumented in this encounter"
--- OUTSIDE RECORDS SUMMARY | ~2020-02-29 | XMS | Encounter Summary ---
Demographics + + + | Address | [address] | | | [place] [address] | + + + | Home Phone [...] Providers + +------+ + | Care Cargo Supervisor Name | Role | Phone [...] | Ave Mailcode: CH4S | [facility] | | | | | [facility] | [place], [place] | | | | | and [place], | [address] | | | | | [facility] | [phone] | | | | | [place], [place] | | | | | | [address] | | | | | | [phone] | | | +--------+--------+ + + + [...]
--- OUTSIDE RECORDS SUMMARY | ~2020-02-29 | XMS | Encounter Summary ---
Demographics + + + | Address | [address] | | | [place] [address] | + + + | Home Phone [...] Team Providers + +------+ + | Care Shift Boss Name | Role | Phone | [...] as of this encounter Progress Notes Interface, Mimeograph Operator In - 01/12/2005 9:01 AM PDT [id number] [facility] Date: 05/20/2004 Clinic: Morbid [...] Surgery Chris Padgett M.D. MS / HS [id number] / [id number] / [id number] / [id number] documented i n this encounter Plan of Treatment Not on filedocumented as of this encounter Visit Diagnoses Not on filedocumented in this encounter"
--- OUTSIDE RECORDS SUMMARY | ~2020-02-29 | XMS | Encounter Summary ---
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, | José Miguel Strong MD | | | | | uncertain | Eastern | | | | | | behavior of | [facility] | Orthopaedics | | | | | bone and | & Fractur | [address] | | | | | articular | [address] | Naeem Mcrae | | | | | cartilage | [address] | Rd | | | | | Procedures | [place], | [place], [place] | | | | | REQUEST TO | [place] [address] | [address] | | | | | SURGERY | Phone: | | | | | | KILN MECHANIC | [phone] | | | | | | [place] BONE | Fax: | | | | | | BIOPSY,OPEN | [phone] | | | | | | DEEP OH | | | | | | | EXCIS/CURET | | | | | | | BENIGN TUMR | | | | | | | CLAV/SCAPULA | | | | | | | OH EXCIS | | | | | | | BENIGN TUMR | | | | | | | CLAV/SCAP,AU | | | | | | | TOGRFT OH | | | | | | [...] | Orthopedic | Diagnoses | Vasquez, | Tiffanie, | | | | Surgery / | Lesion on | Helio Ruiz, | José Miguel Strong MD | | | | Orthopedics | lt natalee | MD [place]una[place] | | | | | | | [facility] | Orthopaedics | | | | | | & Fractur | [address] | | | | | | [address] | Naeem Mcrae | | | | | | Nirav Kovacs | [place] | | | | | | [place], | [place], [place] | | | | | | [place] [address] | [address] | | | | | | Phone: | | | | | | | [phone] | | | | | | | Fax: | | | | | | | [phone] | | +--------+--------+ + + + + [...] | (Primary Dx) | | | | [place], [place] | | | | | | [address] | | | | | | [phone] | | | +--------+---------+ + + + [...] 08/2007 right knee Hx lumbar fusion 05/2008 [id number] with bone spur removals Hx appendectomy Hx cholecystectomy Hx section Hx hysterectomy Gastric bypass Mayra Padgett wt 278 01/18 Paniculectomy Allergies: Allergies Allergen Reactions Keflex (Cephalexin) Sulfa (Sulfonamides) Codeine Penicillins Clindamycin Cipro (Ciprofloxacin) Tramadol Morphine IM ( only in [facility]) made gut pain worse 08/27/06: Trial of oral MSIR caused leg swelling Clarithromycin Hives Mainly in the legs Hzdofuz-mffhaqqffk-srz-caff Balance problems Amitriptyline Grand mal seizures Medications: [...] signs are noted as recorded by the Private Inquiry Agent. General: Alert, awake, and oriented x3. No [...] circular lesion about the medial scapular spine; kristyne r, this is difficult to discern. She [...] ablation, I may discuss with her leah avldivia with curettage and bone grafting of his lesion. I will call her once this conversation nguyen s been had. Thank you for allowing me to participate in the care of this patient. Orders Placed This Encounter X-ray scapula complete Oxycontin or documented in this e ncounter Miscellaneous Notes Scan - Other, Faculty - 01/12/2009 8:04 AM PDT can - Edwige, F aculty - 01/10/2009 1:13 PM PDT documented in t his encounter [...] No: | | | | | | [id number] Name: | | | | | | GEOVANNIBELINDA | | | | | | Birthday: 1960 | | | | | | Sex: F | | | | | | Alias:Patient Location: | | | | | | [id number]: Outpatient | | | | | | ActiveOrdering | | | | | | Physician: JOSÉ MIGUEL | | | | | | TIFFANIE,GSCAC SCAPULA | | | | | | COMPLETE completed on | | | | | | 01/01/2009 11:55 | | | | | | AMAccession # | | | | | | [id number] | | | | | | SCAPULA [...] BONNIE | | | | | | NOHELIA, | | | | | | JaonnaReviewer: BONNIE | | | | | | [...]
--- OUTSIDE RECORDS SUMMARY | ~2020-02-29 | XMS | Encounter Summary ---
Demographics + + + | Address | [address] | | | [place] [address] | + + + | Home Phone [...] Providers + +------+ + | Care Beauty Culturist Apprentice Name | Role | Phone | [...] Required | | paroxysmal | [address] [facility] | HOSPITAL | | | | | positional | [address] | [address] | | | | | vertigo, | [place], | AVE | | | | | left | [place] [address] | [place], [place] | | | | | Vertigo of | Phone: | [address] | | | | | central | [phone] | Phone: | | | | | origin, left | Fax: | [phone] | | | | | | [phone] | Fax: | | | | | | | [phone] | +--------+ + + + + + + + | Scheduling Instructions | + + | Patient is going to be having an Tayler maneuver done and at [facility]. | + + Encounter Details +--------+ + + + + | Date | Type | Department | Care Team | Description | +--------+ + + + + | 12/11/ | Orders Only | [facility] | Ulysses Genao MD | Benign paroxysmal | | 2015 | | OTOLARYNGOLOGY [address] | [address] | positional vertigo, | | | | [address] | [address] [place] | left (Primary Dx); | | | | [place], [place] | [address] | Vertigo [facility] | | | | [address] | | ermias, left | | | | [phone] | | | +--------+ + + + [...] REGION | | | | | | [place] [address] | | | | | | [phone] | | | | | | | [...]
--- OUTSIDE RECORDS SUMMARY | ~2020-02-29 | XMS | Encounter Summary ---
Demographics + + + | Address | [address] | | | [place] [address] | + + + | Home Phone [...] Providers + +------+ + | Care Furnace Repairer Helper Name | Role | Phone [...] of this encounter Progress Notes Interface, Engineering Programmer In - 01/13/2005 9:03 AM PDT [id number] [facility] Date: 01/02/2005 Clinic: Endocrinology [...] months. Beto Meeks M.D. PD / HS [id number] / [id number] / [id number] / [id number] cc: Chris Padgett M.D. documented i n this encounter Plan of Treatment Not on filedocumented as of this encounter Visit Diagnoses Not on filedocumented in this encounter"
--- OUTSIDE RECORDS SUMMARY | ~2020-02-29 | XMS | Encounter Summary ---
Demographics + + + | Address | [address] | | | [place] [address] | + + + | Home Phone [...] Team Providers + +------+ + | Care Casework Specialist Name | Role | Phone | [...] as of this encounter Progress Notes Interface, Correctional Supply Supervisor In - 08/19/2005 2:05 AM PST [id number] [facility] Date: 07/29/2005 Clinic: Hematology [...] pursue aggressive iron supplementation. Lukasz Sellers M.D. lithographing machine operator NANCY / [id number] / [id number] / [id number] / [id number] cc: Pedrito Gutierrez M.D. [address] [address] Electronically signed by Lukasz Sellers 08-18-2005 01:28:12 PM documented i n this encounter Plan of Treatment Not on filedocumented as of this encounter Visit Diagnoses Not on filedocumented in this encounter"
--- OUTSIDE RECORDS SUMMARY | ~2020-02-29 | XMS | Encounter Summary ---
Demographics + + + | Address | [address] | | | [place] [address] | + + + | Home Phone [...] Team Providers + +------+ + | Care Airconditioning Engineer Name | Role | Phone | [...] of this encounter Progress Notes Interface, Storage Administrator In - 08/30/2005 2:07 AM PST [id number] [facility] Date: 07/24/2005 Clinic: Surgery [...] surgery. Chris Padgett M.D. CD / HS [id number] / [id number] / [id number] / [id number] Electronically signed by Chris Padgett 08-29-2005 03:28:14 PM documented i n this encounter Plan of Treatment Not on filedocumented as of this encounter Visit Diagnoses Not on filedocumented in this encounter"
--- OUTSIDE RECORDS SUMMARY | ~2020-02-29 | XMS | Encounter Summary ---
Demographics + + + | Address | [address] | | | [place] [address] | + + + | Home Phone [...] + +------+ + | Care Director Of Retail Merchandising Name | Role | Phone | [...] | Center [address] | [address] [facility] | | | | | Bethanie Mailcode: CH4S | [facility] | | | | | [facility] | [place], [place] | | | | | and Healing, | [address] | | | | | [facility] | [phone] | | | | | Floor [place], [place] | | | | | | [address] | | | | | | [phone] | | | +--------+ + + + [...]
--- OUTSIDE RECORDS SUMMARY | ~2020-02-29 | XMS | Encounter Summary ---
Demographics + + + | Address | [address] | | | [place] [address] | + + + | Home Phone [...] + +------+ + | Care Head Of Business Development Name | Role | Phone | [...] | | | | sciatica | [place] [address] | | | | | | S/P lumbar | Phone: | | | | | | fusion | [phone] | | | | | | Sacroiliac | Fax: | | | | | | inflammation | [phone] | | | | | | (HCC) [...] Physical | Diagnoses | Rob, | [address] | | | Services [...] | | | | | sciatica | [place] [address] | [address] | | | | | S/P lumbar | Phone: | Phone: | | | | | fusion | [phone] | [phone] | | | | | Sacroiliac | Fax: | Fax: | | | | | inflammation | [phone] | [phone] | | | | | ([facility]) | | | | | | [...] | | | | sciatica | [address] | [address] Phone: | | | | | | [place], | [phone] | | | | | | [place] | Fax: | | | | | | [address] | [phone] | | | | | | Phone: | | | | | | | [phone] | | | | | | | Fax: | | | | | | | [phone] | | +--------+ + + + + + Encounter Details +--------+---------+ + + + | Date | Type | Department | Care Team | Description | +--------+---------+ + + + | 09/23/ | Office | [facility] | Lencho Rivas, | Sacroiliac | | 2019 | Visit | PHYSIATRY [address] | PA-C [address] | inflammation (HCC) | | | | [address] | [address] [place] | (Primary Dx); Acute | | | | [place], [place] | [place] [address] | midline low back | | | | [address] | [phone] | pain with bilateral | | | | [phone] | | sciatica; S/P lumbar | | [...] 9:20 AM PDTReferral to michelle james ([facility]). Referral to massage therapy. Due [...] press against a nerve. Date Last Reviewed: 08/13/201719997132-4416 [employer]. [address] [place] [address]. All righ ts reserved. This information is not intended as a substitute for professional medical care. Always follow your healthcare professional's instructions. documented in this encounter Progress Notes Lencho Rivas PA-C - 09/23/2018 9:20 AM PDTFormatting of this note might be different fro m the original. Lencho Rivas PA-C [address] [facility] [address] [place] [address] FAX: CHIEF COMPLAINT: Chief Complaint Patient presents [...] [facility] MEDICAL PROCEDURE UN[facility] CURRENT MEDICATIONS: Current Outpatient [...] (See Comments) Confused and questionable for seizures Utxxgersat-Wulh-Plgxuwzs Hives and Rash Cephalexin Hives Ciprofloxacin Hives [...] has no apparent deficits with short or snf memory. Cranial nerves 2-12 appear grossly intact. [...] currently enrolled in a pain clinic in [place], [place]. 5) Patient will follow up with [...] | | | | | [place] [address] | | | | | | [phone] | | | | | | | [...]
--- OUTSIDE RECORDS SUMMARY | ~2020-02-29 | XMS | Encounter Summary ---
Demographics + + + | Address | [address] | | | [place] [address] | + + + | Home Phone [...] Lab findings, | | 2008 | | [place] [address] | [address] | teaching, guidance, | | | | Ave Mailcode: CH4S | [facility] [address] | and counseling | | | | [facility] | [place], [place] | (08/28/08 Lab | | | | and Healing, | [address] | results) | | | | [place] [address] [facility] | [phone] | | | | | [place], [place] | | | | | | [address] | | | | | | [phone] | | | +--------+ + + + [...] istratively closed with the authorization of the [facility] Committee. elephone Encounter - Nuris Cardenas Rn - 09/01/2008 1:26 PM PDTNotified referral placed for hemorrhoids and order plac ed for EGD. Informed of lab results. elephone Encounter - Adriana Macedo - 08/30/2008 3:02 PM PDTBelinda maya calling to get lab results from 08/28/08. Also she wants Lolly Saenz To know that her PCP sugar l not authorize her a referral to [facility] for Hemorrhoids and she is not sure what to do or how she can get scheduled for her diagnosis. Pain Scale: na Recent Surgery or Procedure: yes-08/28/08 Pharmacy: Pharmacy Preferences: Tayo [address] [facility] Milly [place] [facility] [place] [id number] documented in this enc ounter Plan of Treatment Not on filedocumented as of this encounter Visit Diagnoses Not on filedocumented in this encounter"
--- OUTSIDE RECORDS SUMMARY | ~2020-02-29 | XMS | Encounter Summary ---
Demographics + + + | Address | [address] | | | [place] [address] | + + + | Home Phone [...] Providers + +------+ + | Care Detail Technician Name | Role | Phone | [...] | | | Metabolism | bypass | [address] | [address] | | | | | Hypovitamino | [address], | Ave | | | | | sis D [address] | [address] | [place], [place] | | | | | nutritional | [place], [place] | [address] | | | | | deficiency | [address] | Phone: | | | | | Other | Phone: | [phone] | | | | | protein-jose manuel | [phone] | Fax: | | | | | nick | Fax: | [phone] | | | | | malnutrition | [phone] | | | | | | Weight | | | | | | | gain | | | | | | | Procedures | | | | | | | CONSULT TO | | | | | | | ENDO | | | | | | | [address] | | | | | | | [address] | | | +--------+--------+ + + + [...] | | | [facility] | [place], [place] | Dx); Hypothyroidism; | | | | [address] | [address] | Essential | | | | [address] | [phone] | hypertension 401.9; | | | | [facility] | | Fibromyalgia | | | | Physician's | | syndrome 729[address] | | | | Pavilion [place], | | | | | | [place] [address] | | | | | | [phone] | | | +--------+---------+ + + + [...] Hives Mainly in the legs Clindamycin Codeine Fgzlqpy-Ixizhfsspv-Vtg-Caff Balance problems Fioricet W/Codeine (Uxeonldirh-Xkdzoxcjtq-Gvo-Cod) Keflex (Cephalexin) Morphine IM ( only in [facility]) made gut pain worse 08/27/06: Trial [...] U/L 41 ANION GAP 8 VITAMIN B12, [id number] pg/ml >2000 (H) HEMOGLOBIN A1C <=5.6 % [...] SERUM 15.0-85.0 pg/ml 222.9 (H) VITAMIN B12, [id number] pg/ml > 2000 HEMOGLOBIN A1C <=5.6 % [...]
--- OUTSIDE RECORDS SUMMARY | ~2020-02-29 | XMS | Encounter Summary ---
Demographics + + + | Address | [address] | | | [place] [address] | + + + | Home Phone [...] Team Providers + +------+ + | Care Radiator Cleaner Name | Role | Phone | [...] Abdominal pain | | 2005 | | [place] [facility] | | | | | | [address] | | | | | | Mailcode: WAT059 | | | | | | [facility] | | | | | | [place], [place] | | | | | | [address] | | | | | | [phone] | | | +--------+ + + + [...]
--- OUTSIDE RECORDS SUMMARY | ~2020-02-29 | XMS | Encounter Summary ---
Demographics + + + | Address | [address] | | | [place] [address] | + + + | Home Phone [...] Team Providers + +------+ + | Care Hogshead Salvage Name | Role | Phone | [...] | | | Ave Mailcode: CH4S | [facility] | | | | | [facility] | [place], [place] | | | | | and [place], | [address] | | | | | [facility] | [phone] | | | | | [place], [place] | | | | | | [address] | | | | | | [phone] | | | +--------+--------+ + + + [...] 5:14 PM Phone (Incoming) Tayo Mcdonough (Pharmacy) [phone] Call Documentation Roya Callaway Ma10/18/09 05:15 PM Signed Fax received. Last filled : 07/08/2009 Encounter Messages No Messages in this encounter Patient Education View Patient Education Report Allergies as of 10/18/2009 Date Reviewed:10/03/2009 Noted Type Reactions Keflex (Cephalexin) 01/22/2006 Sulfa (Sulfonamide Antibiotics) 01/22/2006 Codeine 01/22/2006 Penicillins 01/22/2006 Clindamycin 01/22/2006 Cipro (Ciprofloxacin) 01/22/2006 Tramadol 01/22/2006 Morphine IM ( only in [facility]) made gut pain worse, 08/27/06: Trial of oral MSIR caused leg swelling Clarithromycin 06/28/2007 Hives, Mainly in the legs Wuakqlz-ukaoorfohl-wgl-caff 08/28/2008 Balance problems Amitriptyline 10/03/2008 Grand mal seizures Fioricet W/codeine (Kdv-cpsnhpbdhl-tpqvillewl-caf) 02/21/2009 Refused Disp Refills Start End sucralfate (CARAFATE) 1 gram Oral Tablet 120 Tab 1 10/18/2009 Sig - Route: Take 1 Tab by mouth before meals. - Oral Class: eRx Reason for Refusal: Route to other provider Reason for Refusal Comment: To be filled by pt's PCP. Refused By: NIHARIKA KIRKPATRICK Pharmacy Used [facility] [phone] Orders and Results Diagnosis None ORDERS PLACED OR RELEASED THIS ENCOUNTER Telephone Contact Summary Incoming Call Date & Time Provider Department Center 10/18/2009 5:14 PM ELIEZER RUANO MD Bariatric [facility] Reason for Call Refill Request SUCRALFATE Routing History Routing History From To [facility] 10/18/09 05:59 PM NIHARIKA Kirkpatrick Ma Routine Called and told pharmacy that pt. Rx elephone Encounter - Roya Callaway Ma - 10/18/2009 5:15 PM PDTFax received. Last filled : 07/08/2009 documented in this e ncounter Plan of Treatment Not on filedocumented as of this encounter Visit Diagnoses Not on filedocumented in this encounter"
--- OUTSIDE RECORDS SUMMARY | ~2020-02-29 | XMS | Encounter Summary ---
[...] + +------+ + | Care Mail Clerk Name | Role | Phone | [...] [address] | | | | | | [place], [place] | | | | | | [address] | | | | | | [phone] | | | +--------+ + + + [...] + | [facility] | [address] [facility] | [place] [address] | | | PATHOLOGY | [address] | | | + + + + + | [facility] | [address] | [place] [address] | | | PATHOLOGY | [address] [...] DEPARTMENT OF | [address] | [place] [address] | | | PATHOLOGY | [address] | | | + + + + + | [facility] DEPARTMENT OF | [address] | [place] [address] | | | PATHOLOGY | [address] [...] DEPARTMENT OF | [address] | [place] [address] | | | PATHOLOGY | [address] | | | + + + + + | [facility] DEPARTMENT OF | [address] | [place] [address] | | | PATHOLOGY | [address] [...] + | [facility] DEPARTMENT OF | [facility] | [place] [address] | | | PATHOLOGY | [address] | | | + + + + + | [facility] DEPARTMENT OF | [facility] | [place] [address] | | | PATHOLOGY | [address] [...] pg/mL | | | | | [facility]. | | | | + + + + + + + + | Specimen | + + | | + + + + + + + | Performing | Address | City/State/Zipcode | Phone Number | | Organization | | | | + + + + + | [facility] | [address] | [place] [address] | | | LABORATORY | | | [...] | | | | | performed at [facility] | | | | | | [facility] | | | | | | Laboratory | | | | + + + + + + + + | Specimen | + + | | + + + + + + + | Performing | Address | City/State/Zipcode | Phone Number | | Organization | | | | + + + + + | [facility] | [address] | [place] [address] | | | LABORATORY | | | | + + + + + documented in this encounter Visit Diagnoses + + | Diagnosis | + + | Chronic abdominal pain Abdominal pain, unspecified site | + + | Iron deficiency Other disorders of iron metabolism | + + documented in this encounter"
--- OUTSIDE RECORDS SUMMARY | ~2020-02-29 | XMS | Encounter Summary ---
Demographics + + + | Address | [address] | | | [place] [address] | + + + | Home Phone [...] Providers + +------+ + | Care Safety Spec Name | Role | Phone | + [...] | | | | Clinical Nutrition | [place], [place] | | | | | [address] | [address] | | | | | Loop Mailcode: OPC5 | [phone] | | | | | Outpatient Clinic | | | | | | [facility] | | | | | | [place] [address] | | | | | | [phone] | | | +--------+ + + + [...] | uIU/aida | | | | | [facility] | | | | | | Laboratories. | | | | + + + + + + + + | Specimen | + + | | + + + + + + + | Performing | Address | City/State/Zipcode | Phone Number | | Organization | | | | + + + + + | [facility] | [address] | [place] [address] | | | LABORATORY | | | [...] | pg/mL | | | | | [facility] | | | | | | Laboratory. | | | | + + + + + + + + | Specimen | + + | | + + + + + + + | Performing | Address | City/State/Zipcode | Phone Number | | Organization | | | | + + + + + | [facility] | [address] | [place] [address] | | | LABORATORY | | | [...] DEPARTMENT OF | [address] | [place] [address] | | | PATHOLOGY | [address] | | | + + + + + | [facility] DEPARTMENT OF | [address] | [place] [address] | | | PATHOLOGY | [address] [...] + + | [facility] DEPARTMENT OF | [address] | [place] [address] | | | PATHOLOGY | [address] | | | + + + + + | [facility] | [address] | [place] [address] | | | PATHOLOGY | [address] | | | + + + + + documented in this encounter Visit Diagnoses Not on filedocumented in this encounter"
--- OUTSIDE RECORDS SUMMARY | ~2020-02-29 | XMS | Encounter Summary ---
Demographics + + + | Address | [address] | | | [place] [address] | + + + | Home Phone [...] Team Providers + +------+ + | Care Returned Case Inspector Name | Role | Phone | [...]
--- OUTSIDE RECORDS SUMMARY | ~2020-02-29 | XMS | Encounter Summary ---
Demographics + + + | Address | [address] | | | [place] [address] | + + + | Home Phone [...] Providers + +------+ + | Care Library Technical Assistant Name | Role | Phone | [...] [address] | | | | | | [place], [place] | | | | | | [address] | | | | | | [phone] | | | +--------+ + + + [...]
--- OUTSIDE RECORDS SUMMARY | ~2020-02-29 | XMS | Encounter Summary ---
Demographics + + + | Address | [address] | | | [place] [address] | + + + | Home Phone [...] Providers + +------+ + | Care Brick Siding Applicator Name | Role | Phone [...] + + | 02/03/ | Refill | [facility] | Alanis, | Medication Refill | | 2017 | | MEDICINE [address] | MD [place] | | | | | [place], | [address] [facility] | | | | | [place] [address] | [place] [address] | | | | | [phone] | [phone] | | | | | | | [...] | | | | | [place] [address] | | | | | | [phone] | | | | | | | | +--------+---------+ + + + documented as of this encounter Visit Diagnoses Not on filedocumented in this encounter"
--- OUTSIDE RECORDS SUMMARY | ~2020-02-29 | XMS | Encounter Summary ---
Demographics + + + | Address | [address] | | | [place] [address] | + + + | Home Phone [...] Providers + +------+ + | Care Merchandise Presentation Associate Name | Role | Phone | [...] [id number] | | | | | | [place], [place] | | | | | | [address] | | | | | | [phone] | | | +--------+--------+ + + + [...] 09/28/2006 3:11 PM PDTPatient Name: Belinda maya, [id number], 1960 Name of Medication requested: fentanyl / norco Date of last refill: 10/07 Dose requested: 12mcg / 10mg 325mg Patient has been compliant with [facility] treatment plan: yes Ailyn Wyatt documented in this encounter Plan of Treatment Not on filedocumented as of this encounter Visit Diagnoses Not on filedocumented in this encounter"
--- OUTSIDE RECORDS SUMMARY | ~2020-02-29 | XMS | Clinical Summary ---
Demographics + + + | Address | [address] | | | [place] [address] | + + + | Home Phone [...] + +------+ + | Care Highway Maintenance Crew Worker Name | Role | Phone | + +------+ + | Sulaiman Carrera MD | PCP | | + +------+ + Source Comments MARK is fully live on both [facility] and [facility] Allergies + + + + + [...] + + + + + + | Vzugqnm-Gwpfjedhpy-C | | | 08/29/19 | Balance problems [...] in | | | | | | [facility]) | | | | | | made [...] | imbalances, sleep apnea, neck pain, medication [id number] | + + + + + | [...] + + | Influenza (Flu) | | 02/16/20 | | | vaccination (#1) | 0 | 19, | | | | | 02/18/20 | | | | | 18, | | | | | 02/07/20 | | | | | 17, | | | | | Addition | | | | | al | | | | | history | | | | | exists | | + + + + + | Pneumococcal | Completed | 07/11/19 | | | vaccination | | 16, | | | | | 03/23/20 | | | | | 10 | [...] + +--------+ | MEDICARE | MEDICA | [id number] | 07/16/19 | [phone] | [address] | Medica | | | RE A & | | 03-Pre | 1 | [address] | re | | | B | | sent | | [place] | | | | | | | | [address] | | + +--------+ +--------+ + +--------+ | IMMIGRATION INSPECTOR MEDICAID | IMMIGRATION INSPECTOR | [id number] | | | | Medica | | [...] Person | Self | [birth year] | [address] | | | al/Fam | | 1959 | [id number] | [place] [address] | | | bijan | | | 3 (Home) | | + +--------+ +--------+ + + | Belinda Meehan | Medica | Self | [birth year] | | [address] | | | re | | 1959 | [id number] | [place] [address] | | | Recurr | | | 3 (Home) | | | | ing | | | | | + +--------+ +--------+ + + Advance Directives + + + + + | Type | Date Recorded | Patient | Explanation | | | | Stone Lathe Operator | | + + + + + | Advance | 11/19/2004 12:00 | | ADVANCE DIRECTIVE | | Directives and | AM | | | | Living Will | | | | + + + + + | Power of | | | | | Delimber Operator | | | | + + [...]
--- OUTSIDE RECORDS SUMMARY | ~2020-02-29 | XMS | Encounter Summary ---
Demographics + + + | Address | [address] | | | [place] [address] | + + + | Home Phone [...] Providers + +------+ + | Care Warehouse Checker Name | Role | Phone | [...] | Diagnoses | Rileyacle, | Fili Pt Crayon Sawyer | | | | Therapy | Muscle | NIHARIKA Jean | Ch[address] | | | | | strain Neck | [address] | [address] | | | | | pain | [address] | Mailcode: | | | | | Fibromyalgia | [place], [place] | [facility] | | | | | Radicular | [address] | for Health | | | | | pain in left | | and Healing, | | | | | arm | | Building 1 | | | | | Procedures | | [place], [place] | | | | | PHYSICAL | | [address] | | | | | THERAPY | | Phone: | | | | | REFERRAL | | [phone] | +--------+--------+ + + + + Reason for Visit + + + | Reason | Comments | + + + | LBP - Low back pain | | + + + Encounter Details +--------+---------+ + + + | Date | Type | Department | Care Team | Description | +--------+---------+ + + + | 08/22/ | Office | [facility] | Delfina Lambert, | Muscle Strain hips; | | 2008 | Visit | Pain Center at | ANP | Fibromyalgia; Neck | | | | [facility] | | Pain; Radicular Pain | | | | [address] | | in Left Arm; | | | | Center for [facility] | | Dizziness; Black | | | | and Healing, | | Out; Falling | | | | Building | |Falling | | | | Floor [place], [place] | | | | | | [address] | | | | | | [phone] | | | +--------+---------+ + + + [...] visit Schedule MRI of the neck at [facility] Use your TENS for the [...] drawing has be completed, which I reviewed. [facility] Brief Pain Inventory: (ten= worst possible [...] 3. Mental Health care: psychology Dr Ogden PRN every 3 months or as needed 4. [...] appointment to see lumbar spine surgery in [place] on . Psychiatric History: depressed mood, sleep [...] 278 01/18 Paniculectomy Hx lumbar fusion 05/2008 [id number] with bone spur removals Family History Problem [...] the MRI results befor planning [facility]. Belinda was compliant with all [...] [facility] Mail code CH 4P [facility] [address] [address] Ailyn Foster - 03/2009 9:30 AM [...] Miscellaneous Notes Scan - Other, Faculty - 10/29/2008 2:40 PM PDT can - Other, Faculty - 08/30/2008 8:50 AM PDT Electronica zaire signed by Gallo Matthews In at 08/30/2008 8:50 AM PDTdocumented in this encounter Plan of [...]
--- OUTSIDE RECORDS SUMMARY | ~2020-02-29 | XMS | Encounter Summary ---
Demographics + + + | Address | [address] | | | [place] [address] | + + + | Home Phone [...] Providers + +------+ + | Care Staff Training And Development Manager Name | Role | [...]
--- OUTSIDE RECORDS SUMMARY | ~2020-02-29 | XMS | Encounter Summary ---
Demographics + + + | Address | [address] | | | [place] [address] | + + + | Home Phone [...] Providers + +------+ + | Care Carver And Checkerer Specials Name | Role | Phone | + [...] Services | Therapy | Acute pain | [place] | [facility] | | | Required | | of right | Eliud, | PHYSICAL | | | | | shoulder | MD [address] | THERAPY [address] | | | | | Tear of | [address] | [place] | | | | | right | [place], | [place], [place] | | | | | supraspinatu | [place] | [address] | | | | | s tendon, | [address] | Phone: | | | | | initial | Phone: | [phone] | | | | | encounter | [phone] | Fax: | | | | | | Fax: | [phone] | | | | | | [phone] | | +--------+ + + + + [...] Services | Surgery | Acute pain | Emmy-Jefft | Ruben Leonardo MD | | | Required | | of right | i, | [address] | | | | | shoulder | Sulaiman-Gily | ST [place] | | | | | Tear of | [address] | [place], [place] | | | | | right | [address] | [address] Phone: | | | | | supraspinatu | [place], | [phone] | | | | | s tendon, | [place] | Fax: | | | | | initial | [address] | [phone] | | | | | encounter | Phone: | | | | | | | [phone] | | | | | | | Fax: | | | | | | | [phone] | | +--------+ + + + + + Encounter Details +--------+---------+ + + + | Date | Type | Department | Care Team | Description | +--------+---------+ + + + | 02/23/ | Office | [facility] | Lc Vail | Acute pain of right | | 2018 | Visit | ORTHOPEDIC SURGERY | MD [address] | shoulder; Tear of | | | | [address] [place] | [address] | right supraspinatus | | | | [place] | [place] [address] | tendon, initial | | | | [address] | [phone] | encounter | | | | [phone] | | | +--------+---------+ + + + [...] the shoulder. Try to hold the stretch [id number]. 3. Work up to nahsl2imuu of this stretch,3times a day. Work up [...] ask your healthcare provider. Date Last Reviewed: 07/16/201719994356-0795 [employer] [place] [address], [place] [address]. All righ ts reserved. This information is not intended as a substitute for professional medical care. Always follow your healthcare professional's instructions. documented in this encounter Progress Notes Lc Vail MD - 02/23/2018 1:30 PM PDTFormatting of this note might be different fro m the original. [facility] HISTORY AND PHYSICAL [...] apnea Spondylosis with myelopathy, lumbar region Stroke ([facility]) Syncope Tremor Type II or unspecified type diabetes mellitus with other specified manifestations, not stated as uncontrolled 05/04/2017 Vitamin D deficiency Past Surgical History: Procedure Laterality Date ADENOIDECTOMY APPENDECTOMY BREAST LUMPECTOMY Left 2002 CARPAL TUNNEL RELEASE 2001 SECTION CHOLECYSTECTOMY 2004 COLONOSCOPY N/A 12/18/2017 Procedure: COLONOSCOPY; Surgeon: Luther Brito MD; Location: [facility] MEDICAL PROCEDURE UNIT DILATION AND CURETTAGE OF UTERUS ELBOW SURGERY FINGER TRIGGER RELEASE 2002 FINGER TRIGGER RELEASE 2010 GASTRIC BYPASS SURGERY 2004 HYSTERECTOMY 05/14/1980 JOINT REPLACEMENT Bilateral 2007,2008 KNEE ARTHROSCOPY 2005 LAPAROSCOPY 01/27/2015 LAPAROTOMY 2008 ROTATOR CUFF REPAIR 2005 SPINE SURGERY TONSILLECTOMY 1964 UPPER GASTROINTESTINAL ENDOSCOPY N/A 12/18/2017 Procedure: EGD; Surgeon: Luther Brito MD; Location: [facility] MEDICAL PROCEDURE UNIT Allergies: Allergies Allergen Reactions Codeine Sulfate Nausea Only Levofloxacin Hives, Itching and Rash Amitriptyline Hcl Other (See Comments) Confused and questionable for seizures Aozklxzaqf-Bjms-Ikbndphc Hives and Rash Cephalexin Hives Ciprofloxacin Hives [...] 1. Acute pain of right shoulder * [facility] Physical Therapy - AMB Referral triamcinolone acetonide (KENALOG-40) 40 mg/mL injection 40 mg 2. Tear of right supraspinatus tendon, initial encounter * [facility] Physical Therapy - AMB Refe rral [...] injection. She is very symptomatic at the [facility] ent and states that [...] made to ensure accuracy; however, inadvertent computerized mill and coal transport operator errors may be pre sent. I appreciate the opportunity to help with the management of this patient. Lc Vail MD [facility] umented in this encounter Plan [...] | | | | | [place] [address] | | | | | | [phone] | | | | | | | [...]
--- OUTSIDE RECORDS SUMMARY | ~2020-02-29 | XMS | Encounter Summary ---
Demographics + + + | Address | [address] | | | [place] [address] | + + + | Home Phone [...] Team Providers + +------+ + | Care Ms Sql Dba Name | Role | Phone | [...] | | Fluid in | Emmy-Tajt | [place], [place] | | | | | ears/self/Fa | i, | CCC-A [address] | | | | | miguel | [place] | [address] | | | | | Medicare/Ion | , [address] | [address] [place] | | | | | escu | [address] | [place], [place] | | | | | Procedures | [place], | [address] Phone: | | | | | OFFICE VISIT | [place] | [phone] | | | | | REGULAR | [address] | Fax: | | | | | | Phone: | [phone] | | | | | | [phone] | | | | | | | Fax: | | | | | | | [phone] | | +--------+--------+ + + + + Encounter Details +--------+---------+ + + + | Date | Type | Department | Care Team | Description | +--------+---------+ + + + | 10/18/ | Office | [facility] | Elisabet Munson MS | Encounter for | | 2014 | Visit | AUDIOLOGY AND | [facility] [address] | hearing evaluation | | | | [facility] | [address] [place] | (Primary Dx) | | | | [address] | [place] [address] | | | | | [address] [facility] | [phone] | | | | | [place] [address] | | | | | | [phone] | | | +--------+---------+ + + + [...] documented as of this encounter Progress Notes JeimyElisabet, CCC-A - 10/18/2014 2:54 PM PDTReferring Provider: [...] | | | | | | [address] [place] [address] [place] | | | | | | [place] [address] | | | | | | [phone] | | | | | | | [...]
--- OUTSIDE RECORDS SUMMARY | ~2020-02-29 | XMS | Encounter Summary ---
Demographics + + + | Address | [address] | | | [place] [address] | + + + | Home Phone [...] +------+ + | Care Research And Development Director Name | Role | Phone | [...] | | | | [address] | [address] Phone: | | | | | | [place], | [phone] | | | | | | [place] | Fax: | | | | | | [address] | [phone] | | | | | | Phone: | | | | | | | [phone] | | | | | | | Fax: | | | | | | | [phone] | | +--------+--------+ + + + + Encounter Details +--------+---------+ + + + | Date | Type | Department | Care Team | Description | +--------+---------+ + + + | 01/04/ | Office | [facility] [place] | Carlos Hsieh | Fibromyalgia | | 2015 | Visit | PHYSIATRY [address] | [address], [address] | (Primary Dx); S/P | | | | [address] | [address] [place]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; | | | | [place] | [address] | Chronic neck pain; | | | | [address] | | Chronic low back | | | | [phone] | | pain; Lumbar | | | [...] of the procedure you must provide a cdl driver to take you home. For all procedur es it is recommended that someone else drive you home. documented in this encounter Progress Notes Carlos Hsieh MD - 01/04/2015 8:13 AM PDT Carlos Hsieh MD [address] [facility] [facility] [place], [place] [address] FAX: PHYSICAL MEDICINE AND REHABILITATION H&P CHIEF COMPLAINT: Chief Complaint Patient presents with Neck Pain Neck pain that radiates between the shoulder blades and down from there HISTORY OF PRESENT ILLNESS: The patient is a 54 y.o. female being seen today at the [facility] Booth for complaints of [...] were performed by a Dr. García in [place]. Th e patient is unable to take NSAID's because apparently last time she took them she was black and blue all over. PAST MEDICAL HISTORY: Past Medical History Diagnosis Date Diarrhea Osteoarthritis, generalized Migraine Osteopenia Obesity Syncope Hyperparathyroidism ([facility]) RLS (restless legs syndrome) OLIVER (obstructive sleep apnea) Depression COPD (chronic obstructive pulmonary disease) ([facility]) Fibromyalgia Peripheral neuropathy Chronic pain Benign essential hypertension Rheumatoid arthritis ([facility]) IBS (irritable bowel syndrome) Scoliosis Hypothyroidism Stroke ([facility]) Blind left eye Arthritis Osteoporosis [...] visit. ALLERGIES: Allergies Allergen Reactions Amitriptyline Hcl Tnampktjws-Pvdc-Mdnujzje Cephalexin Ciprofloxacin Clarithromycin Clindamycin Hcl Codeine Sulfate [...] | | | | | [place] [address] | | | | | | [phone] | | | | | | | [...] radiculopathy ICD-9 Code 724.4 Belinda Basilio | [facility] | | Shefali presents to the fluoroscopy suite for [facility] | | fluoroscopically-guided bilateral L5-S1 transforaminal [...] ST. | [address] | [place] | [phone] | | [facility] | | [address] | | | - IMAGING | | [...]
--- OUTSIDE RECORDS SUMMARY | ~2020-02-29 | XMS | Encounter Summary ---
Demographics + + + | Address | [address] | | | [place] [address] | + + + | Home Phone [...] + +------+ + | Care Pediatric Physical Therapist Name | Role | Phone [...] of this encounter Progress Notes Interface, Clinical Services Director In - 01/12/2005 8:09 AM PDT [id number] GEOVANNI BELINDA J Clinic Date: 03/07/2004 Clinic: [facility] TELEPHONE CONVERSATION Subjective: Belinda contacted [...] is welcome to come to [facility] for evaluation; however, given the distance of a 4-hour travel time, we found it would be more expeditious for her to be seen at her local hospital in [place]. The patient also agrees with this plan [...] additional followup as needed. Liliya Kirkpatrick. / [id number] / [id number] / [id number] / documented i n this encounter Plan of Treatment Not on filedocumented as of this encounter Visit Diagnoses Not on filedocumented in this encounter"
--- OUTSIDE RECORDS SUMMARY | ~2020-02-29 | XMS | Encounter Summary ---
Demographics + + + | Address | [address] | | | [place] [address] | + + + | Home Phone [...] Providers + +------+ + | Care Color Control Operator Name | Role | Phone [...] | | | | [id number] | [place], [place] | | | | | [address] | [address] | | | | | [place], [place] | [phone] | | | | | [address] | | | | | | [phone] | | | +--------+ + + + [...]
--- OUTSIDE RECORDS SUMMARY | ~2020-02-29 | XMS | Encounter Summary ---
Demographics + + + | Address | [address] | | | [place] [address] | + + + | Home Phone [...] + +------+ + | Care Director Of Contracts Name | Role | Phone | + +------+ + | Sulaiman Carrera MD | PCP | | + +------+ + Encounter Details +--------+ + + + + | Date | Type | Department | Care Team | Description | +--------+ + + + + | 02/23/ | Ancillary | Registration [id number] | Beto Meeks MD | | | 2006 | Registratio | [facility] | [address] | | | | n | [place] Mailcode: RPB07 | [place], [place] | | | | | [place], [place] | [address] | | | | | [address] | [phone] | | | | | [phone] | | | +--------+ + + + [...] | uIU/ml | | | | | [facility] | | | | | | Laboratories. | | | | + + + + + + + + | Specimen | + + | | + + + + + + + | Performing | Address | City/State/Zipcode | Phone Number | | Organization | | | | + + + + + | [facility] | [address] | [place] [address] | | | LABORATORY | | | [...] [place] | | | | | | [facility] | | | | | | Abdiaziz Morales, [facility] [place] | | | | | | [address] | | | | | | [phone]. | | | | | | Sincere [...] [facility] | [address] | [place], [place] | | | [facility] | | [address] | | + + + + + documented in this encounter Visit Diagnoses Not on filedocumented in this encounter"
--- OUTSIDE RECORDS SUMMARY | ~2020-02-29 | XMS | Encounter Summary ---
Demographics + + + | Address | [address] | | | [place] [address] | + + + | Home Phone [...] Team Providers + +------+ + | Care Slot Supervisor Name | Role | Phone | [...] | | | [facility] | [place], [place] | Episode, Moderate | | | | and Healing, | [address] | ([facility]); Left Knee | | | | Building | [phone] | Pain; Neck Pain; | | | | Floor [place], [place] | | Spondylosis with | | | | [address] | | Myelopathy, Lumbar | | | | [phone] | | Region; Chronic | | | [...] has using good self-care skil ls. Diagnosis: [place] I: 1. (296.32) Major depressive disorder, recurrent, moderate. 2. (309.24) Adjustment disorder with anxiety. 3. (307.89) Chronic pain disorder associated with both psychological factors and a gene ral medical condition. [place] II: Deferred [place] III: abdominal pain, migraine headache, low back pain. [place] IV: low finances [place] V: GAF 55-60 Plan: Return in 2 weeks. Check niece's visit, pacing, relaxation, activity, distraction. Contin ue cognitive/behavioral therapy. Total time spent with patient was approximately 45 minutes. LUKASZ CHARLES PHD [facility] [address] [place] [address] And [facility], [address] [place] [address] documented in this encount er Plan of Treatment + + +--------+ + + | Name | Type | Priori | Associated Diagnoses | Order Schedule | | | | ty | | | + + +--------+ + + | [place] [facility], | Procedures | Routin | Major Depressive | Ordered: 11/11/2006 | | OFFICE (38-50) | | e | Disorder, Recurrent | | | | | | Episode, Moderate | | | | | | ([facility]) Left Knee | | | | | [...]
--- OUTSIDE RECORDS SUMMARY | ~2020-02-29 | XMS | Encounter Summary ---
Demographics + + + | Address | [address] | | | [place] [address] | + + + | Home Phone [...] Providers + +------+ + | Care Senior Business Objects Developer Name | Role | Phone | [...] [place], | [address] [facility] | | | | | [place] [address] | [place] [address] | | | | | [phone] | [phone] | | | | | | | [...] Petrnoa | | | | | | [facility] [address] | | | | | | [place] [address] | | | | | | [phone] | | | | | | | | +--------+---------+ + + + documented as of this encounter Visit Diagnoses Not on filedocumented in this encounter"
--- OUTSIDE RECORDS SUMMARY | ~2020-02-29 | XMS | Encounter Summary ---
Demographics + + + | Address | [address] | | | [place] [address] | + + + | Home Phone [...] Providers + +------+ + | Care Marketing Assistant Manager Name | Role | Phone | + +------+ + | Pedrito Gutierrez MD | PCP | | + +------+ + Reason for Visit + +--------+ + | Reason | Onset | Comments | | | Date | | + +--------+ + | Physical therapy | 06/23/ | | | assessment | 2007 | | + +--------+ + Encounter Details +--------+---------+ + + + | Date | Type | Department | Care Team | Description | +--------+---------+ + + + | 06/24/ | Office | Comprehensive Pain | Nathalia Cantu | Chronic Abdominal | | 2006 | Visit | [facility] | [address] | Pain; Cervical Pain; | | | | [facility] [address] [place], | Pain in Joint, Site | | | | [facility] | [place] [address] | Unspecified; | | | | Health and Healing, | | Depression | | | | Building | | | | | | Floor [place], [place] | | | | | | [address] | | | | | | [phone] | | | +--------+---------+ + + + [...] MEDICARE INITIAL EVALUATION NOTE Date: 06/23/2006 Name: Belindavera Hyattdams [id number] y.o. female Start of Care: 06/23/2005 [...] the last few gregory hs. Handedness: right [place]: [place], [place] Chief Complaint: Headaches and cervical pain, bilateral [...] HX SALPINGO-OOPHORECTOMY COLONOSCOPY Comment: 03/2006 HX TONSILLECTOMY WI D&C AFTER DELIVERY WI INJECT TRIGGER POINT, 1 OR 2 Medications: [...] 4 visits concurrently with Psychology. Treatment began: 08 Treatment ende: 899 Nathalia Cantu, Physical Therapist, License number [id number] NATHAL[address] CANTU documented in this encoun ter [...]
--- OUTSIDE RECORDS SUMMARY | ~2020-02-29 | XMS | Encounter Summary ---
Demographics + + + | Address | [address] | | | [place] [address] | + + + | Home Phone [...] + + | 09/16/ | Telephone | [facility] INTER[facility] | Alanis, | Results, Imaging | | 2018 | | [facility] [address] | MD Petrona | | | | | [place], | [address] [place] | | | | | [place] [address] | [place] [address] | | | | | [phone] | [phone] | | | | | | | [...] done yesterday, patient can be reached at [phone] signed Tiburcio Bai at 09/16/2018 12:33 PM PDTdocumented in this encounter Plan of Treatment +--------+---------+ + + + | Date | Type | Specialty | Care Team | Description | +--------+---------+ + + + | 05/17/ | Office | Internal Medicine | Alanis, | | | 2019 | Visit | | MD Petrona | | | | | | [address] [place] [address] [place] | | | | | | [place] [address] | | | | | | [phone] | | | | | | | | +--------+---------+ + + + documented as of this encounter Visit Diagnoses Not on filedocumented in this encounter"
--- OUTSIDE RECORDS SUMMARY | ~2020-02-29 | XMS | Encounter Summary ---
Demographics + + + | Address | [address] | | | [place] [address] | + + + | Home Phone [...] Providers + +------+ + | Care Budget Controller Name | Role | Phone | [...] + + | 11/16/ | Telephone | [facility] | Alanis, | Lab Results | | 2018 | | MEDICINE [address] | MD Petrona | | | | | [place], | [address] [facility] | | | | | [place] [address] | [place] [address] | | | | | [phone] | [phone] | | | | | | | [...] like a rerun phobe call. Please call [phone] regarding her labs that were done 11/16/19 [...] | | | | | | [facility] [address] | | | | | | [place] [address] | | | | | | [phone] | | | | | | | | +--------+---------+ + + + documented as of this encounter Visit Diagnoses Not on filedocumented in this encounter"
--- OUTSIDE RECORDS SUMMARY | ~2020-02-29 | XMS | Encounter Summary ---
Demographics + + + | Address | [address] | | | [place] [address] | + + + | Home Phone [...] | | | | | | | [address] | | | | | | | Phone: | | | | | | | [phone] | | | | | | | Fax: | | | | | | | [phone] | | + + + + + [...] + + | 02/15/ | Telephone | [facility] INTER[facility] | Alanis, | Referral Question | | 2019 | | MEDICINE [address] | MD Petrona | | | | | [place], | [address] [facility] | | | | | [place] [address] | [place] [address] | | | | | [phone] | [phone] | | | | | | | [...] Miscellaneous Notes Telephone Encounter - Teresa Mitchell, Cold Mill Supervisor - 02/16/2020 1:53 PM PDTForma tting of this note might be different from the original. [facility] Dermatology and [facility] DERM Are not taking any [place] pts not even as a s econdary ins. I have closed this referral. OPTION is Dr Truong Lovell at [facility] Dermatology in [place] I HAVE CLOSED THIS REFERRAL SINCE A [...] [place] | | | | | | [place] [address] | | | | | | [phone] | | | | | | | [...]
--- OUTSIDE RECORDS SUMMARY | ~2020-02-29 | XMS | Encounter Summary ---
Demographics + + + | Address | [address] | | | [place] [address] | + + + | Home Phone [...] Team Providers + +------+ + | Care Cartography Supervisor Name | Role | Phone | [...] | | | [place], [place] | [place] [address] | IDIOPATHIC; Lumbar | | | | [address] | [phone] | radiculopathy | | | | [phone] | | primarily right; S/P | | [...] blood sugars if you a re diabetic. [facility] risk can lead to osteoporosis which is [...] were performed by a Dr. García in [place]. The patient is unable to take NSAID's [...] visit. ALLERGIES: Allergies Allergen Reactions Amitriptyline Hcl Jgoekdtfla-Guub-Gogjmish Cephalexin Ciprofloxacin Clarithromycin Clindamycin Hcl Codeine Sulfate [...] has no apparent deficits with short or custodial memory. She has appropriate fund of knowledge [...] PT (multiple sessions over the years) and resident care associate. Unfortunately she nelly nues to have significant [...] she is starting physical therapy again in [place]. 5. I will see the patient 2 [...] | | | | | [place] [address] | | | | | | [phone] | | | | | | | [...] Belinda Meehan presents to the | [facility] | | fluoroscopy suite for fluoroscopically guided bilateral sacroiliac | [facility] | | joint steroid injections as [...] ST. | [address] | [place], [place] | [phone] | | [facility] | | [address] | | | - IMAGING | | [...] Belinda Meehan presents to the | [facility] | | fluoroscopy suite for fluoroscopically guided bilateral sacroiliac [facility] | | joint steroid injections as [...] + | [address] | [address] | [place], [place] | [phone] | | [facility] | | [address] | | | - IMAGING | | [...]
--- OUTSIDE RECORDS SUMMARY | ~2020-02-29 | XMS | Encounter Summary ---
Demographics + + + | Address | [address] | | | [place] [address] | + + + | Home Phone [...] Providers + +------+ + | Care Die Welder Name | Role | Phone | [...] | [facility] [address] [place], | Region; Herniated | | | | [address] [facility] [place] | [place] [address] | Lumbar | | | | Health and Healing, | | Intervertebral Disc | | | | | | L4-5; Neck Pain; | | | | Floor [place], [place] | | Fibromyalgia | | | | [address] | | syndrome 729.1 | | | | [phone] | | | +--------+---------+ + + + [...] Medicare Progress Note Date: 08/26/2006 Belinda Meehan [id number]. 1960 Start of Care: 06/23/2006 Referring Provider: [...] ME THERAPEUTIC | Procedures | Routin | Spondylosis [...]
--- OUTSIDE RECORDS SUMMARY | ~2020-02-29 | XMS | Encounter Summary ---
Demographics + + + | Address | [address] | | | [place] [address] | + + + | Home Phone [...] Providers + +------+ + | Care Multimedia Educational Specialist Name | Role | Phone | [...] [place] | | | | | [place] [address] | [place] [address] | | | | | [phone] | [phone] | | | | | | | [...] | | | | | [place] [address] | | | | | | [phone] | | | | | | | | +--------+---------+ + + + documented as of this encounter Visit Diagnoses Not on filedocumented in this encounter"
--- OUTSIDE RECORDS SUMMARY | ~2020-02-29 | XMS | Encounter Summary ---
Demographics + + + | Address | [address] | | | [place] [address] | + + + | Home Phone [...] Providers + +------+ + | Care Marketing Sales Consultant Name | Role | Phone [...] as of this encounter Progress Notes Interface, Trimming Department Blocker In - 06/23/2006 2:36 AM PST [id number] [place] [address] Clinic Date: 05/05/2006 Clinic: Endocrinology Subjective: Belinda [...] replacement. Beto Meeks M.D. PD / HS [id number] / [id number] / [id number] / cc: Pedrito Gutierrez M.D. [address] [place] [address] Joanna Arshad M.D. [facility] Electronically signed by Beto Meeks 06-20-2006 11:48:11 PM documented i n this encounter Plan of Treatment Not on filedocumented as of this encounter Visit Diagnoses Not on filedocumented in this encounter"
--- OUTSIDE RECORDS SUMMARY | ~2020-02-29 | XMS | Encounter Summary ---
Demographics + + + | Address | [address] | | | [place] [address] | + + + | Home Phone [...] [facility] | | several radiology | | | | [address] | | studies) | | | | [facility] | | | | | | and Healing, | | | | | | Building | | | | | | Floor [place], [place] | | | | | | [address] | | | | | | [phone] | | | +--------+ + + + [...] + +--------+ + + + | NM MRI LOWER EXTREM | Routin | 08/22/2005 [...] + +--------+ + + + | NM MRI LOWER EXTREM | Routin | 03/05/2005 [...] + | NAME: BELINDA MEEHAN MR #: [id number] | [facility] | | DATE OF [...] Armaan Rivera | | | H : [id number] : 1442 Approved By: Radiologist: | | + + + + + + + + | Performing | Address | City/State/Zipcode | Phone Number | | Organization | | | | + + + + + | [facility] | [address] | [place], [place] | | | [facility] | [address] | [address] | | | TESTS | | | | + + + + + | [facility] | [address] | [place], [place] | | | TESTS | [facility] | [address] | | + + + + + SPINE CERV 4 VIEWS (10/01/2005) + + + | Impressions | Performed At | + + + | SPINE CERVICAL 2 VIEWS AT 1410 HOURS CERVICAL SPINE, 10/01/05 | [facility] | | HISTORY: Chronic back pain. [...] VERONICA | [address] | [place], [place] | | | [facility] POINT OF CARE | [facility] | [address] | | | TESTS | | | | + + + + + | [facility] | [address] | [place], [place] | | | TESTS | [facility] | [address] | | + + + + + [...] Armaan Rivera H : | | | [id number] : 1137 Approved By: | | + + + + + + + + | Performing | Address | City/State/Zipcode | Phone Number | | Organization | | | | + + + + + | [facility] | [address] | [place], [place] | | | [place] [facility] | [address] | [address] | | | TESTS | | | | + + + + + | [facility] | [address] | [place], [place] | | | TESTS | [facility] | [address] | | + + + + + MRI SPINE CERVICAL WO CONTRAST (10/01/2005) + + + | Impressions | Performed At | + + + | SPINE LUMBAR 2 VIEWS AT 1421 HOURS LUMBAR SPINE, 10/01/05 | [facility] | | HISTORY: Back pain. FINDINGS: AP and lateral views of the lumbar | CARE TESTS | | spine show five nfy-[id number]-qykgkyo lumbar vertebrae in normal alignment | | [...] | SPONDYLOSIS. Transcribed By: Armaan Mata : [id number] : | | | 1402 Approved By: | | + + + + + + + + | Performing | Address | City/State/Zipcode | Phone Number | | Organization | | | | + + + + + | [facility] | [address] | [place], [place] | | | [place] POINT OF CARE | [address] | [address] | | | TESTS | | | | + + + + + | [facility] | [address] | [place], [place] | | | TESTS | [address] | [address] | | + + + + + MRI SHOULDERS BILAT WO CONT (09/02/2005) + + + | Impressions | Performed At | + + + | UPPER EXT JOINT W/O RT AT 1309 HOURS RIGHT SHOULDER MRI, | [facility] | | 09/02/05 HISTORY: Two years [...] | | Transcribed By: Adriana Pacheco : [id number] : 1215 Approved By: | | | | | + + + + + + + + | Performing | Address | City/State/[facility] | Phone Number | | Organization | | | | + + + + + | [facility] | [address] | [place], [place] | | | [place] [facility] | [address] | [address] | | | TESTS | | | | + + + + + | [facility]ARE | [address] [facility] [address] | [place], [place] | | | TESTS | [address] | [address] | | + + + + + NM MRI LOWER EXTREM JT, W/O CONTRAST (08/22/2005) [...] | + + + + + | [facility] | [address] | [place], [place] | | | [facility] | [address] | [address] | | | TESTS | | | | + + + + + | [facility] | [address] | [place], [place] | | | TESTS | [address] | [address] | | + + + + + NM BONE IMG WHOLE BODY (05/16/2005) + + + | Impressions | Performed At | + + + | BONE SCAN (SPECT) AT 1232 HOURS BONE SPECT, 05/16/05 | [facility] | | HISTORY: Chronic thoracic pain [...] + + + | [facility] | [address] | [place], [place] | | | [facility] | [facility] | [address] | | | TESTS | | | | + + + + + | [facility] | [address] | [place], [place] | | | TESTS | [address] | [address] | | + + + + + NM MRI LOWER EXTREM JT, W/O CONTRAST (03/05/2005) [...] | | | By: Armaan Mata : [id number] : 1416 Approved By: | | + + + + + + + + | Performing | Address | City/State/Zipcode | Phone Number | | Organization | | | | + + + + + | [facility] | [address] | [place], [place] | | | [facility] | [address] | [address] | | | TESTS | | | [...] Armaan | | | Nicole MataYudy : [id number] : 1555 Approved By: | | + + + + + + + + | Performing | Address | City/State/Zipcode | Phone Number | | Organization | | | | + + + + + | [facility] | [address] | [place], [place] | | | [facility] | [address] | [address] | | | TESTS | | | [...] Adriana | | | Aminata Pacheco : [id number] : 1505 Approved By: | | + + + + + + + + | Performing | Address | City/State/Zipcode | Phone Number | | Organization | | | | + + + + + | [facility] | [address] | [place], [place] | | | [facility] | [facility] | [address] | | | TESTS | | | | + + + + + documented in this encounter Visit Diagnoses Not on filedocumented in this encounter"
--- OUTSIDE RECORDS SUMMARY | ~2020-02-29 | XMS | Encounter Summary ---
Demographics + + + | Address | [address] | | | [place] [address] | + + + | Home Phone [...] Providers + +------+ + | Care Account Resolution Expert Name | Role | Phone | [...] + + | 04/19/ | Telephone | [facility] | Alanis, | Lab Results | | 2018 | | MEDICINE [address] | MD [place] | | | | | [place], | [address] [facility] | | | | | [place] [address] | [place] [address] | | | | | [phone] | [phone] | | | | | | | [...] [place] | | | | | | [place] [address] | | | | | | [phone] | | | | | | | | +--------+---------+ + + + documented as of this encounter Visit Diagnoses Not on filedocumented in this encounter"
--- OUTSIDE RECORDS SUMMARY | ~2020-02-29 | XMS | Encounter Summary ---
Demographics + + + | Address | [address] | | | [place] [address] | + + + | Home Phone [...] Providers + +------+ + | Care Chucking Machine Operator Name | Role | Phone [...] + | 04/09/ | Refill | [facility] [place] [facility] | Alanis, | Medication Refill | | 2017 | | MEDICINE [place] | MD [place] | | | | | [address] | [address] [facility] [place] | | | | | [place] | [place] [address] | | | | | [address] | [phone] | | | | | [phone] | | | +--------+--------+ + + + [...] 2:11 PM PDTPatient [facility] was asked what medical supply she would like it faxed to and she stated to just mail it to her. Please call patient to advise, . elephone Encounter Maggie Ji LPN - 04/12/2018 2:02 PM PDTLeft message for patient to call back with the name of the medical supply to fa x rx to elephone Nael Garciay, MD - 04/12/2018 1:47 PM PDTRx printed. [...] | | | | | [place] [address] | | | | | | [phone] | | | | | | | | +--------+---------+ + + + documented as of this encounter Visit Diagnoses Not on filedocumented in this encounter"
--- OUTSIDE RECORDS SUMMARY | ~2020-02-29 | XMS | Encounter Summary ---
Demographics + + + | Address | [address] | | | [place] [address] | + + + | Home Phone [...] Providers + +------+ + | Care Clutch Assembler Name | Role | Phone | [...] + + | 02/26/ | Telephone | [facility] | Alanis, | Imaging | | 2019 | | MEDICINE [address] | MD [place] | | | | | [place], | [address] [facility] | | | | | [place] [address] | [place] [address] | | | | | [phone] | [phone] | | | | | | | [...] | | | | | [place] [address] | | | | | | [phone] | | | | | | | [...]
--- OUTSIDE RECORDS SUMMARY | ~2020-02-29 | XMS | Encounter Summary ---
Demographics + + + | Address | [address] | | | [place] [address] | + + + | Home Phone [...] + +------+ + | Care Director Of [employer] Name | Role | Phone | + [...] as of this encounter Progress Notes Interface, Spaghetti Press Helper In - 10/15/2005 2:06 AM PDT [id number] [facility] Date: 09/18/2005 Clinic: Ms. [...] a month. Chris Padgett M.D. ROSA / [id number] / [id number] / [id number] / [id number] Electronically signed by Chris Padgett 10-14-2005 08:13:46 AM documented i n this encounter Plan of Treatment Not on filedocumented as of this encounter Visit Diagnoses Not on filedocumented in this encounter"
--- OUTSIDE RECORDS SUMMARY | ~2020-02-29 | XMS | Encounter Summary ---
Demographics + + + | Address | [address] | | | [place] [address] | + + + | Home Phone [...] Team Providers + +------+ + | Care Viscose Department Worker Name | Role | Phone | [...] | | | | | Encounter | [place], [place] | [place] | | | | | for | [address] | [address] | | | | | long-term | | Phone: | | | | | (current) | | [phone] | | | | | use of other | | Fax: | | | | | medications | | [phone] | | | | | LBP (low [...] 06/23/ | Office | [facility] | Lukasz Charles, | Major depressive | | 2013 | Visit | [address] | PhD [address] | disorder, recurrent | | | | [facility] | [place], [place] | episode, moderate | | | | and Healing, | [address] | ([facility]) (Primary Dx); | | | | | [phone] | LBP (low back pain); | | | | Floor [place], [place] | | Adjustment disorder | | | | [address] | | with anxiety | | | | [phone] | | | +--------+---------+ + + + [...] an appropriate candidate for a stimulator. Diagnosis: [place] I: 1. (296.32) Major depressive disorder, recurrent, moderate. 2. (309.24) Adjustment disorder with anxiety. [place] II: Deferred [place] III: abdominal pain, migraine headache, low back pain, fibromyalgia. [place] IV: low finances [place] V: GAF 55-60 Plan: return in 1 month. Check mood, pain, activity, stress management. Ask about spinal cord stimulator, any changes at home. Continue cognitive/behavioral therapy. Total time spent with patient was approximately 45 minutes. LUKASZ CHARLES PHD [facility] [address] [place] [address] And [facility], [address] [place] [address] documented in this en counter Plan of [...]
--- OUTSIDE RECORDS SUMMARY | ~2020-02-29 | XMS | Encounter Summary ---
Demographics + + + | Address | [address] | | | [place] [address] | + + + | Home Phone [...] 12/20/ | Office | [facility] | Elisabet Munson MS | Sensorineural | | 2019 | Visit | AUDIOLOGY AND | [facility] [address] | hearing loss (SNHL) | | | | [facility] | [address] | of both ears | | | | [address] | [place] [address] | (Primary Dx); | | | | [address] | [phone] | Dizziness and | | | | [place] [address] | | giddiness | | | | [phone] | | | +--------+---------+ + + + [...] | | | | | [place] [address] | | | | | | [phone] | | | | | | | [...]
--- OUTSIDE RECORDS SUMMARY | ~2020-02-29 | XMS | Encounter Summary ---
Demographics + + + | Address | [address] | | | [place] [address] | + + + | Home Phone [...] Providers + +------+ + | Care Box Lining Machine Feeder Name | Role | Phone [...] | | | | | | | [address] | | | | | | | [place] | | | | | | | Pavilion | | | | | | | [place], [place] | | | | | | | [address] | | | | | | | Phone: | | | | | | | [phone] | | | | | | | Fax: | | | | | | | [phone] | +--------+--------+ + + + + Encounter Details +--------+ + + + + | Date | Type | Department | Care Team | Description | +--------+ + + + + | 02/22/ | Hospital | [facility] [address] | Hai Hoyos, | | | 2008 | Encounter | [address] | | | | | | [address] | | | | | | [place], | | | | | | [place] [address] | | | | | | [phone] | | | +--------+ + + + [...] Brief Hospital Course: Patient was admitted to [facility] short stay surgery. Patient was [...] business hours at or page the orthopedist rehabilitation therapy aide after regular business hours at [phone]. If you have any of the following: [...] appointment, please call our scheduling line at [phone]. Follow Up Tests: (Tests at [facility] must be entered into Epic) [...] Brief Hospital Course: Patient was admitted to [facility] short stay surgery. Patient was [...] business hours at or page the orthopedist rehabilitation therapy aide after regular business hours at [phone]. If you have any of the following: [...] at . Follow Up Tests: (Tests at [facility] must be entered into Epic) [...] as of this encounter Procedure Notes Other, [facility] - 02/22/2009 1:00 PM PDT Other, 02/22/2009 1:00 PM PDT Other, [facility] 02/22/2009 1:00 PM PDTAssociated Order(s): ANESTHESIA/SEDATION; ANESTHE JES/SEDATION Other, [facility] - 02/22/2009 1:00 PM PDT Other, [facility] 02/22/2009 1:00 PM PDTAssociated Order(s): ANESTHESIA/SEDATION; ANESTHE JES/SEDATION Other, [facility] - 02/22/2009 1:00 PM PDTAssociated Order(s): PATHOLOGY; PATHOLOGY Other, [facility] - 02/22/2009 1:00 PM PDTAssociated Order(s): ANESTHESIA/SEDATION; ANESTHE JES/SEDATION Other, [facility] - 02/22/2009 1:00 PM PDTAssociated Order(s): ANESTHESIA/SEDATION; [...] MD Assistants: NGUYỄN Adkins served as my captain assistant because no other qualified help was [...] PDTAssociated Order(s): OPERATION RECORD; OPER ATION RECORD [id number] [facility] Molly [id number] Date: 02/22/2009 Attending Surgeon: Hai Hoyos MD Plugging Machine Operator(s): Shantel Whipple Preoperative Diagnosis(es): Left symptomatic scapula lesion. Postoperative Diagnosis(es): Left symptomatic scapula lesion. Procedures Performed: 1. Curettage and bone grafting of the left scapular lesion. 2. Open biopsy, left scapular lesion. Donna Clancy served as my captain assistant because no other qualified help was [...] as aforementioned. MD ARTIS Wei / SHARIF [id number] / [id number] / [id number] / ther, Faculty - 4:17 PM PDT [...] [facility] | [address] | [place] [address] | | | PATHOLOGY | [address] [...] [facility] | [address] | [place] [address] | | | PATHOLOGY | [address] [...] | | | | | performed at [place] | | | | | | [facility] [...] | [facility] | [address] | [place] [address] | | | PATHOLOGY | [address] [...] [facility] | [address] | [place] [address] | | | PATHOLOGY | [address] [...] | | | | | performed at [place] | | | | | | [facility] [...] [facility] | [address] | [place] [address] | | | PATHOLOGY | [address] [...] [facility] | [address] | [place] [address] | | | PATHOLOGY | [address] [...] Lab) | | | | | | [facility] | | | | | | [address] | | | | [address] | | | | | | [place] [address] | | | | + + + + + + + + | Specimen | + + | | + + + + + + + | Performing | Address | City/State/Zipcode | Phone Number | | Organization | | | | + + + + + | [facility] | [address] | [place] [address] | | | PATHOLOGY | [address] [...] Performed At | + + + | [id number] | | | [id number] | | | [facility] [id number] | | | Date: 02/22/2009 Attending Surgeon: | | | Hai Hoyos MD Plugging Machine Operator(s): | | | Donna Clancy, P.A. Preoperative | | | Diagnosis(es): Left symptomatic scapula lesion. Postoperative | | | Diagnosis(es): Left symptomatic scapula lesion. Procedures | | | Performed: 1. Curettage and bone grafting of the left scapular | | | lesion. 2. Open biopsy, left scapular lesion. | | | Donna Clancy served as my captain assistant because no other qualified | | [...] | aforementioned. MD ARTIS Wei / SHARIF [id number] / | | | [id number] / [id number] / | | + + + + + | Procedure Note | + + | Hai Hoyos MD - 02/22/2009 12:00 AM PDT [id number] | | [id number] [facility] | | [id number] Date: 02/22/2009 Attending Surgeon: Hai | | MD Romain Plugging Machine Operator(s): Shantel Whipple Preoperative | | Diagnosis(es):Left symptomatic scapula lesion. Postoperative Diagnosis(es):Left | | symptomatic scapula lesion. Procedures Performed:1. Curettage and bone grafting of | | the left scapular lesion.2. Open biopsy, left scapular lesion. Donna Clancy | | served as my captain assistant because no other qualified help wasavailable. [...] plan is as aforementioned. CHARU Wei / [id number] / [id number] / [id number] /D: | | 02/22/2009T: 02/22/2009 | | [...] Hoyos MD | |ARTIS / SHARIF | |[id number] / [id number] / [id number] / | | | | | | [...] | [facility] | [address] [place] [address] | [place] [address] | | | PATHOLOGY | [address] | | | + + + + + | [facility] | [address] [place] [address] | [place] [address] | | | PATHOLOGY | [address] [...]
--- OUTSIDE RECORDS SUMMARY | ~2020-02-29 | XMS | Encounter Summary ---
Demographics + + + | Address | [address] | | | [place] [address] | + + + | Home Phone [...] Providers + +------+ + | Care Water Systems Designer Name | Role | Phone | [...] [place] | | | | | [place] [address] | [place] [address] | | | | | [phone] | [phone] | | | | | | | [...] | | | | | [place] [address] | | | | | | [phone] | | | | | | | | +--------+---------+ + + + documented as of this encounter Visit Diagnoses Not on filedocumented in this encounter"
--- OUTSIDE RECORDS SUMMARY | ~2020-02-29 | XMS | Encounter Summary ---
Demographics + + + | Address | [address] | | | [place] [address] | + + + | Home Phone [...] Providers + +------+ + | Care Rock Room Worker Name | Role | Phone [...] | | | | [address] Physician's | [place], [place] | | | | | [address] | [address] | | | | | [place], [place] | [phone] | | | | | [address] | | | | | | [phone] | | | +--------+ + + + [...]
--- OUTSIDE RECORDS SUMMARY | ~2020-02-29 | XMS | Encounter Summary ---
Demographics + + + | Address | [address] | | | [place] [address] | + + + | Home Phone [...] Providers + +------+ + | Care Manufacturing Worker Name | Role | Phone | [...] + | 11/17/ | Office | [facility] | Emmy-Tajti, | Bilateral leg edema | | 2018 | Visit | MEDICINE [address] | MD [place] | (Primary Dx); Venous | | | | [address] [place], | [address] [place] | insufficiency; | | | | [place] [address] | [place] [address] | Fatigue, unspecified | | | | [phone] | [phone] | type | | | | | [...] (See Comments) Confused and questionable for seizures Pbatxzpkif-Qsmh-Bscjlasr Cephalexin Hives Duloxetine Migraines and nausea Ketorolac Hives Morphine Swelling Ropinirole Hcl Hives Tramadol Hcl Nausea Only Fjaeqqfnbd-Iyjd-Ojcfmppe Hives and Rash Ciprofloxacin Hives and Rash [...] Note: Parts of this documentwere created using official.fm speech recognition software. As a r esult, [...] | | | [facility] [address] | | | | | | [place] [address] | | | | | | [phone] | | | | | | | [...] | Quantitativ | quantitative D-Dimer | | [facility] | | | e | assay has [...] [address] | [place] | [phone] | | [facility] | | [address] | | | - LABORATORY | | [...] + | [facility] | [address] | [place] | [phone] | | [facility] | | [address] | | | - LABORATORY | | [...] third generation TSH | uIU/mL | [facility] | | | | test. | | [...] [address] | [place] | [phone] | | [facility] | | [address] | | | - LABORATORY | | [...] | non- | FILTRATION | mL/min/1.73m2 | [facility] | | | Slovak | RATE,ESTIMATED | | MEDICAL | | | | mL/min/1.07x0Lrpj than | | CENTER - | | [...] + | [facility] | [address] | [place] | [phone] | | [facility] | | [address] | | | - LABORATORY | | [...] [address] | [place] | [phone] | | [facility] | | [address] | | | - LABORATORY | | [...]
--- OUTSIDE RECORDS SUMMARY | ~2020-02-29 | XMS | Encounter Summary ---
Demographics + + + | Address | [address] | | | [place] [address] | + + + | Home Phone [...] Providers + +------+ + | Care Mortgage Manager Name | Role | Phone [...] | | | | CONSULT TO | [place], [place] | Health and | | | | | NEUROLOGY | [address] | Healing, | | | | | | | Building [address], | | | | | | | 8th Floor | | | | | | | [place], [place] | | | | | | | [address] | | | | | | | Phone: | | | | | | | [phone] | | | | | | | Fax: | | | | | | | [phone] | +--------+--------+ + + + + Reason for Visit +--------+ + | Reason | Comments | +--------+ + | Pain | back, legs, headache | +--------+ + Encounter Details +--------+---------+ + + + | Date | Type | Department | Care Team | Description | +--------+---------+ + + + | 08/12/ | Office | [facility] | Delfina Molina, | Migraine Headache | | 2006 | Visit | Pain Center at | ANP | (Primary Dx); | | | | [facility] | | Spondylosis with | | | | [address] | | Myelopathy, Lumbar | | | | [place] [facility] | | Region; Neck Pain; | | | | and Healing, | | Right shoulder | | | | Building | | rotator cuff strain; | | | | Floor [place], [place] | | Fibromyalgia | | | | [address] | | syndrome 729.1; | | | | [phone] | | Depression | +--------+---------+ + + [...] might be different from lesli rodriguez original. 08/12/2006 Belinda Meehan is a 46 y.o. [...] spyptoms no different to her typical headaches, sh jennifer reports going to the ED for the [...] in two weeks or PRN DELFINA MOLINA [facility] Pain [facility] Mail code CH 4P [place] [facility] and [address] [address] Alisha Marquez - 8:25 AM PSTCMA History: PMH/PSH/SH/FH review 1. [...]
--- OUTSIDE RECORDS SUMMARY | ~2020-02-29 | XMS | Encounter Summary ---
Demographics + + + | Address | [address] | | | [place] [address] | + + + | Home Phone [...] + | 11/09/ | Telephone | [facility] | Alanis, | Medical Problem | | 2018 | | MEDICINE [address] | MD [place] | | | | | [place], | [address] [facility] | | | | | [place] [address] | [place] [address] | | | | | [phone] | [phone] | | | | | | | [...] | | | | | [place] [address] | | | | | | [phone] | | | | | | | | +--------+---------+ + + + documented as of this encounter Visit Diagnoses Not on filedocumented in this encounter"
--- OUTSIDE RECORDS SUMMARY | ~2020-02-29 | XMS | Encounter Summary ---
Demographics + + + | Address | [address] | | | [place] [address] | + + + | Home Phone [...] Team Providers + +------+ + | Care Hydraulics Engineer Name | Role | Phone | [...] | at [place] | [facility] | | | | | [address] | [place] [address] | | | | | [address] | | | | | | [place], 2nd floor | | | | | | [place], [place] | | | | | | [address] | | | | | | [phone] | | | +--------+ + + + [...]
--- OUTSIDE RECORDS SUMMARY | ~2020-02-29 | XMS | Encounter Summary ---
Demographics + + + | Address | [address] | | | [place] [address] | + + + | Home Phone [...] Providers + +------+ + | Care It Infrastructure Engineer Name | Role | Phone [...] | Pain | Diagnoses | Emmy | Mortgage Accounting Clerk Chh1 | | | | Management | [...] | | | | | [place] | [address] | [place], [place] | | | | | disease, | Phone: | [address] | | | | | bilateral | [phone] | Phone: | | | | | Rheumatoid | Fax: | [phone] | | | | | arthritis, | [phone] | Fax: | | | | | unspecified | | [phone] | | | | | | | [...] + + | 02/05/ | Office | [facility] | Shalonda Garcia, | Post laminectomy | | 2017 | Visit | Pain Center at | MANUFACTURING LAB TECHNICIAN [address] | syndrome (Primary | | | | [place] | [place], [place] | Dx); Intractable | | | | [address] | [address] | chronic migraine | | | | [place] [facility] | [phone] | without aura and | | | | and Healing, | | with status | | | | | | migrainosus; | | | | Floor [place], [place] | | Fibromyalgia | | | | [address] | | | | | | [phone] | | | +--------+---------+ + + + [...] Discuss with your PCP, a referral to [facility] for discussion regarding spinal cord stimulator Shalonda Mustafa DNP, MANUFACTURING LAB TECHNICIAN-C Adult Pain Service /[facility] [address] [place] [address] documented in this encounter Progress Notes Jing Holloway - 02/05/2017 1:35 PM PDT Date: 02/05/2017 was referred for pain management consultation by Sulaiman Whitlock MD [address] [place] [address] Reason for consult: cervical radiculopathy, low back [...] by her primary care pr magdy in [facility]. This provider is currently in [...] patient at a pain cli brigida in [facility], however her insurance changed and she no longer has coverage at this clinic. 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 She feels she is at the point where is not able to determine which medications are hel pful in improving her pain. She endorses incontinence symptoms. She reports there are "days I just want to " because her pain is so bad. 's treatment for this pain complaint has included: MEDICATIONS: - Gabapentin - Merced - Butran - Cymbalta - Fentanyl Patches NON-MEDICATION THERAPIES: - Physical Therapy - Exercise - Heat/Ice - Pool Therapy - Brace/Support - TENS INTERVENTIONS: - Spinal surgery x3, Laminectomy unknown level - Epidural Steroid Injections - Trigger Point Injections lives in a single family home in [place], [place]. She is not currently working , she receives disability. As a result of her pain, notes multiple changes in her life, including limiting her ability to perform routine tasks. 's goals from today's appointment include: consultation only (advice only to you and your primary care physician), counseling, drug treatment, help in coping with the pain a nd stress management. ASSISTANT GENERAL MANAGER Brief Pain Inventory: (ten= worst possible [...] Colorectal polyps COPD (chronic obstructive pulmonary disease) ([facility]) CVA (cerebral vascular accident) ([facility]) Fibromyalgia 07/25/2008 Craniocervical junction appears stenotic in cervical extension. Headache HTN (hypertension) Hypothyroidism 11/11/2006 IBS (irritable bowel syndrome) Internal hemorrhoid Kidney stone Major depressive disorder, recurrent episode, moderate ([facility]) 07/31/2006 Metabolic syndrome X 250.80 Metabolic syndrome X 250.80 Optic nerve hemorrhage left eye Other general symptoms Pneumonia PUD (peptic ulcer disease) RA (rheumatoid arthritis) ([facility]) Radiculitis, lumbosacral 03/03/2008 Reduced vision Scoliosis Sleep apnea Spondylosis with myelopathy, lumbar region 07/02/2006 Vertebral fracture T7,8,9 Xray T spine 2003 Past Surgical History Procedure Laterality Date Salpingo-oophorectomy Colonoscopy 03/2006 Tonsillectomy Pr d&c after delivery Pr inject trigger point, 1 or 2 Knee replacement 02/2007 Left knee Knee replacement 08/2007 right knee Lumbar fusion 05/2008, '11 & '12 L5-G9yjoaun with bone spur removals Appendectomy Cholecystectomy section [...] Hives Mainly in the legs Clindamycin Codeine Rtojgmp-Lsmocrtrlv-Ssh-Caff Balance problems Fioricet W/Codeine [Rslzoakcgr-Ssyodvztli-Qmp-Cod] Keflex [Cephalexin] Ketorolac Unknown Morphine IM ( only in [facility]) made gut pain worse 08/27/06: Trial [...] and summary of old medical records ([facility]), as summarized in the body of the [...] by her primary care pr magdy in [facility]. She reports that this provider [...] Whitlock MD may consider a referral to [facility] for discu ssion regarding spinal cord stimulator -No follow up needed at this time 02/05/2017: IKathleen am functioning as a medical artist for MEGAN Dutta DNP I have reviewed and verified the above scribed note of my visit with this patient as record ed by Kathleen Riley. Shalonda Mustafa DNP, FNP-C Adult Pain Service [facility] [address] [place] [address] Maris Costa MA - 02/05/2017 1:35 PM [...]
--- OUTSIDE RECORDS SUMMARY | ~2020-02-29 | XMS | Encounter Summary ---
Demographics + + + | Address | [address] | | | [place] [address] | + + + | Home Phone [...] Post | | | | Center for [facility] | | Bariatric Surgery | | | | and Healing, | | | | | | Building [address] | | | | | | [place], [place] | | | | | | [address] | | | | | | [phone] | | | +--------+------+ + + + [...] Performed At | + + + | [id number] Estimated GFR > 60 mL/min/1.73 sq m if non- | [facility] | | Nigerian [id number] Estimated GFR > 60 mL/min/1.73 sq m if | DEPARTMENT OF | | Nigerian GFR is estimated using the MDRD equation [...] [facility] DEPARTMENT OF | [address] | [place] [address] | | | PATHOLOGY | [address] | | | + + + + + | [facility] DEPARTMENT OF | [address] | [place] [address] | | | PATHOLOGY | [address] [...] + + | [facility] | [address] [facility] | [place] [address] | | | PATHOLOGY | [address] | | | + + + + + | [facility] | [address] [facility] | [place] [address] | | | PATHOLOGY | [address] | | | + + + + + documented in this encounter Visit Diagnoses + + | Diagnosis | + + | Chronic abdominal pain Abdominal pain, unspecified site | + + | Status post bariatric surgery Bariatric surgery status | + + documented in this encounter"
--- OUTSIDE RECORDS SUMMARY | ~2020-02-29 | XMS | Encounter Summary ---
Demographics + + + | Address | [address] | | | [place] [address] | + + + | Home Phone [...] Providers + +------+ + | Care Flooring Machine Feeder Name | Role | Phone [...] of this encounter Progress Notes Interface, Plant Protection Guard In - 10/30/2005 2:06 AM PDT [id number] GEOVANNI SKELTON Molyl [id number] Clinic Date: 10/23/2005 Clinic: Ms. Meehan comes in today for followup of her abdominal CT. The CT is normal. We will follow her for abdominal pain. I will see her again in 3 months. If she has exacerbation, she can come earlier. I also gave her 30 tablets of 5 mg oxycodone for the pain. Chris Padgett M.D. CD / HS [id number] / [id number] / [id number] / Electronically signed by Chris Padgett 10-29-2005 10:10:39 AM documented i n this encounter Plan of Treatment Not on filedocumented as of this encounter Visit Diagnoses Not on filedocumented in this encounter"
--- OUTSIDE RECORDS SUMMARY | ~2020-02-29 | XMS | Encounter Summary ---
Demographics + + + | Address | [address] | | | [place] [address] | + + + | Home Phone [...] Providers + +------+ + | Care Photographer Apprentice Name | Role | Phone | [...] + + | 11/15/ | Telephone | [facility] | Alanis, | Foot Injury | | 2019 | | MEDICINE [address] | MD [place] | | | | | [place], | [address] [place] [address] | | | | | [place] [address] | [place] [address] | | | | | [phone] | [phone] | | | | | | | [...] seek medical attention at the ED in [facility]. Understands and a ccepts elephone [facility] - 11/16/2019 8:21 [...] | | | | | [place] [address] | | | | | | [phone] | | | | | | | | +--------+---------+ + + + documented as of this encounter Visit Diagnoses Not on filedocumented in this encounter"
--- OUTSIDE RECORDS SUMMARY | ~2020-02-29 | XMS | Encounter Summary ---
[...] + +------+ + | Care Tufting Machine Operator Single Needle Name | Role | Phone | + [...] | | | | | [address] | [address] Phone: | | | | | | [place], | [phone] | | | | | | [place] | Fax: | | | | | | [address] | [phone] | | | | | | Phone: | | | | | | | [phone] | | | | | | | Fax: | | | | | | | [phone] | | +--------+ + + + + + Encounter Details +--------+---------+ + + + | Date | Type | Department | Care Team | Description | +--------+---------+ + + + | 12/30/ | Office | [facility] [place] | Ulysses Genao MD | Benign paroxysmal | | 2018 | Visit | OTOLARYNGOLOGY [address] | [address] [place] | positional vertigo, | | | | [address] | [address] [place] | unspecified | | | | [place] | [address] | laterality (Primary | | | | [address] | | Dx); Dysfunction of | | | | [phone] | | left eustachian tube | +--------+---------+ [...] negative nichole ft to it. Her speech nurse receptionist threshold is 20 dB in the [...] | | | | | [place] [address] | | | | | | [phone] | | | | | | | [...]
--- OUTSIDE RECORDS SUMMARY | ~2020-02-29 | XMS | Encounter Summary ---
Demographics + + + | Address | [address] | | | [place] [address] | + + + | Home Phone [...] Providers + +------+ + | Care Creative Services Specialist Name | Role | Phone [...] | Services | Medicine | OLIVER | Rene | Ruben Gerber | | | Required | | (obstructive | i, | MD Raji [address] | | | | | sleep | [place] | Clinton Rodríguez | | | | | apnea) | MD [address] [place] | | | | | | [address] | [place], [place] | | | | | | [place], | [address] Phone: | | | | | | [place] | [phone] | | | | | | [address] | Fax: | | | | | | Phone: | [phone] | | | | | | [phone] | | | | | | | Fax: | | | | | | | [phone] | | +--------+ + + + + [...] A[address] [place], | [address] [facility] | (Primary Dx) | | | | [place] [address] | [place] [address] | | | | | [phone] | [phone] | | | | | | | [...] | | | | | [place] [address] | | | | | | [phone] | | | | | | | | +--------+---------+ + + + + + +--------+ + + | Name | Type | Priori | Associated Diagnoses | Order Schedule | | | | ty | | | + + +--------+ + + | * TAHIR GALE | Outpatient | Routin | OLIVER (obstructive [...]
--- OUTSIDE RECORDS SUMMARY | ~2020-02-29 | XMS | Encounter Summary ---
Demographics + + + | Address | [address] | | | [place] [address] | + + + | Home Phone [...] Team Providers + +------+ + | Care Dynamite Shooter Name | Role | Phone | [...] Medication Refill | | 2018 | | [facility] [address] | MD [place] | | | | | [place], | [address] [place] | | | | | [place] [address] | [place] [address] | | | | | [phone] | [phone] | | | | | | | [...] | | | | | [place] [address] | | | | | | [phone] | | | | | | | | +--------+---------+ + + + documented as of this encounter Visit Diagnoses + + | Diagnosis | + + | Chest pain, unspecified type | + + documented in this encounter"
--- OUTSIDE RECORDS SUMMARY | ~2020-02-29 | XMS | Encounter Summary ---
Demographics + + + | Address | [address] | | | [place] [address] | + + + | Home Phone [...] +------+ + | Care Oil And Gas Lease Pumper Name | Role | Phone | [...] [address] | | | | | [place], [place] | [place], [place] | | | | | [address] | [address] | | | | | [phone] | [phone] | | | | | | | [...]
--- OUTSIDE RECORDS SUMMARY | ~2020-02-29 | XMS | Encounter Summary ---
Demographics + + + | Address | [address] | | | [place] [address] | + + + | Home Phone [...] + +------+ + | Care Director Of Midwifery/Staff Midwife Name | Role | Phone | [...] + | 09/14/ | Telephone | [facility] | Alanis, | Chest Pain | | 2019 | | MEDICINE [address] | MD [place] | | | | | [place], | [address] [facility] | | | | | [place] [address] | [place] [address] | | | | | [phone] | [phone] | | | | | | | [...] Miscellaneous Notes Telephone Encounter - Teresa Mitchell, Support Manager - 09/15/2019 10:28 AM Nareshe nt presented [...] | | | | | [place] [address] | | | | | | [phone] | | | | | | | | +--------+---------+ + + + documented as of this encounter Visit Diagnoses Not on filedocumented in this encounter"
--- OUTSIDE RECORDS SUMMARY | ~2020-02-29 | XMS | Encounter Summary ---
Demographics + + + | Address | [address] | | | [place] [address] | + + + | Home Phone [...] Providers + +------+ + | Care Jewelry Engraver Name | Role | Phone | + +------+ + | Pedrito Gutierrez MD | PCP | | + +------+ + Reason for Visit + +--------+ + | Reason | Onset | Comments | | | Date | | + +--------+ + | Refill Request | 02/22/ | | | | 2007 | | [...] [address] | | | | | | [place], [place] | | | | | | [address] | | | | | | [phone] | | | +--------+--------+ + + + [...] Notes Telephone Encounter - Ailyn Wyatt - 02/22/2007 3:17 PM PDTPatient Name: Belinda Molly HyattAurora s, [id number], 1960 Name of Medication requested: trilptal Date of last refill: 01/11 Dose requested: 150mg Patient has been compliant with [facility] treatment plan: yes Ailyn Wyatt I did not see in her chart where you prescribed, but got fax from pharmacy with miranda warren as perscriber document ed in this encounter Plan of Treatment Not on filedocumented as of this encounter Visit Diagnoses Not on filedocumented in this encounter"
--- OUTSIDE RECORDS SUMMARY | ~2020-02-29 | XMS | Encounter Summary ---
Demographics + + + | Address | [address] | | | [place] [address] | + + + | Home Phone [...] Providers + +------+ + | Care Research Biologist Name | Role | Phone | [...] | | Osteoporosis | i, | [address] | | | | | , | [place] | Cece Zhao, | | | | | unspecified | , MD [address] | [place] [address] | | | | | osteoporosis | [address] | Phone: | | | | | type, | CECE ZHAO, | [phone] | | | | | unspecified | [place] | Fax: | | | | | pathological | [address] | [phone] | | | | | fracture | Phone: | | | | | | presence | [phone] | | | | | | Procedures | Fax: | | | | | | [place] | [phone] | | | | | | ZOLEDRONIC | | | | | | | ACID 1MG | | | +--------+ + + + + + Encounter Details +--------+ + + + + | Date | Type | Department | Care Team | Description | +--------+ + + + + | 08/18/ | Hospital | [facility] | Alanis, | Osteopenia, | | 2018 | Encounter | MED CTR OP INFUSION | MD [place] | unspecified location | | | | [address] | [address] [place] [address] | | | | | [place], [place] | [place] [address] | | | | | [address] | [phone] | | | | | [phone] | | | +--------+ + + + [...] Scr was from her lab draw at [facility]. Marlyn PharmD reports it was 0.81 [...] | | | | | | [place] [address] | | | | | | [phone] | | | | | | | [...]
--- OUTSIDE RECORDS SUMMARY | ~2020-02-29 | XMS | Encounter Summary ---
Demographics + + + | Address | [address] | | | [place] [address] | + + + | Home Phone [...] Providers + +------+ + | Care Customer Solutions Representative Name | Role | Phone | [...] + + | 09/23/ | Office | [facility] | Delfina Molina, | Spondylosis with | | 2006 | Visit | Pain Center at | ANP | Myelopathy, Lumbar | | | | [facility] | | Region; Herniated | | | | [address] | | Lumbar | | | | Center for [facility] | | Intervertebral Disc | | | | and Healing, | | L4-5; Right shoulder | | | | Building | | rotator cuff | | | | Floor [place], [place] | | strain; DJD | | | | [address] | | (Degenerative Joint | | | | [phone] | | Disease) of Left | | [...] 72 hours on schedule 2. Continue with Cathlamet 10/325 1 tablet three times per day [...] Belinda Meehan is a 46 y.o. female [facility] Comprehensive Pain [...] 72 hours on schedule 2. Continue with Cathlamet 10/325 1 tablet three times per day as needed for increased pain wit h activity. 3. Continue with Trileptal 150mg, 1 tablet twice a day 4. Continue with PT and psychology as scheduled 5. Follow up with Delfina Molina in 4 weeks or sooner if needed. 6. Continue with orthopedic and neurology evaluations as scheduled DELFINA MOLINA [facility] Mail code CH [address]P [facility] and [address] [address] y Noel - 7 9:28 [...]
--- OUTSIDE RECORDS SUMMARY | ~2020-02-29 | XMS | Encounter Summary ---
Demographics + + + | Address | [address] | | | [place] [address] | + + + | Home Phone [...] Team Providers + +------+ + | Care Profiling Machine Setup Operator Name | Role | Phone | [...] | | | | Mailcode: CR131 | [place], [place] | | | | | Outpatient Clinic | [address] | | | | | [facility], | [phone] | | | | | [place] [address] | | | | | | [phone] | | | +--------+ + + + [...] + + + + | [facility] | [address] | [place] [address] | | | LABORATORY | | | | + + + + + documented in this encounter Visit Diagnoses Not on filedocumented in this encounter"
--- OUTSIDE RECORDS SUMMARY | ~2020-02-29 | XMS | Encounter Summary ---
Demographics + + + | Address | [address] | | | [place] [address] | + + + | Home Phone [...] Team Providers + +------+ + | Care Patching Machine Operator Name | Role | Phone [...] as of this encounter Progress Notes Interface, Washing Machine Assembler In - 09/13/2005 2:06 AM PST [id number] GEOVANNI [place] Clinic Date: 01/02/2005 Clinic: Endocrinology [...] months. Beto Meeks M.D. PD / HS [id number] / [id number] / [id number] / [id number] cc: Chris Padgett M.D. Electronically signed by Beto Meeks 09-12-2005 02:22:56 AM documented i n this encounter Plan of Treatment Not on filedocumented as of this encounter Visit Diagnoses Not on filedocumented in this encounter"
--- OUTSIDE RECORDS SUMMARY | ~2020-02-29 | XMS | Encounter Summary ---
Demographics + + + | Address | [address] | | | [place] [address] | + + + | Home Phone [...] Providers + +------+ + | Care Electronic Science Teacher Name | Role | Phone | [...] | [facility] | [address] [facility] | Myelopathy, Lumbar | | | | [address] [place], | Region; Neck Pain; | | | | [address] [facility] | [place] [address] | Herniated Lumbar | | | | Health and Healing, | | Intervertebral Disc | | | | Building | | L4-5; Fibromyalgia | | | | Floor [place], [place] | | syndrome 729.1; NO | | | | [address] | | DIAGNOSIS RECEIVED | | | | [phone] | | | +--------+---------+ + + + [...] Date: December 02, 2006 Patient: Belinda Meehan, [id number], 1960 I agree with the proposed Physical Therapy Treatment Plan. Provider: DELFINA MOLINA ANP elfina Molina - 007 11:31 AM PDTThis encounter was opened in error. Please disregard this note. athalia Arora - 007 12:26 PM PDT PROGRESS NOTE: Physical Therapy Medicare Progress Note Date: 10/07/2006 Belinda Meehan [id number]. 1960 Start of Care: 06/23/2006 Referring Provider: [...] dial meniscal tear. Patient continues walking at [employer] on a daily basis, (when she is no t in [place] for appts), 30-40 minutes, and her HEP [...]
--- OUTSIDE RECORDS SUMMARY | ~2020-02-29 | XMS | Encounter Summary ---
Demographics + + + | Address | [address] | | | [place] [address] | + + + | Home Phone [...] Providers + +------+ + | Care Field Administrative Assistant Name | Role | Phone [...] [id number] | | | | | | [place], [place] | | | | | | [address] | | | | | | [phone] | | | +--------+ + + + [...]
--- OUTSIDE RECORDS SUMMARY | ~2020-02-29 | XMS | Encounter Summary ---
Demographics + + + | Address | [address] | | | [place] [address] | + + + | Home Phone [...] + +------+ + | Care Help Desk Technician Name | Role | Phone [...] [phone] | | | | | | [place], [place] | | | | | | [address] | | | | | | [phone] | | | +--------+ + + + [...] | | | | | [place] [address] | | | | | | [phone] | | | | | | | | +--------+---------+ + + + documented as of this encounter Visit Diagnoses Not on filedocumented in this encounter"
--- OUTSIDE RECORDS SUMMARY | ~2020-02-29 | XMS | Encounter Summary ---
Demographics + + + | Address | [address] | | | [place] [address] | + + + | Home Phone [...] Team Providers + +------+ + | Care Cooperative Education Coordinator Name | Role | Phone [...] + + | 01/04/ | Office | [facility] Comprehensive | Delfina Molina, | Spondylosis with | | 2006 | Visit | Pain Center at | ANP | Myelopathy, Lumbar | | | | [facility] | | Region; Herniated | | | | [address] | | Lumbar | | | | Center for [facility] | | Intervertebral Disc | | | | and Healing, | | L4-5; Left Knee | | | | Building | | Pain; Opioid | | | | Floor [place], [place] | | [place], | | | | [address] | | Continuous ([facility]); | | | | [phone] | | Migraine Headache; | | | | | | Fibromyalgia | | | | | | syndrome 729.1; | | | | | | Major Depressive | | | | | | Disorder, Recurrent | | | | | | Episode, Moderate | | | | | | ([facility]); Adjustment | | | | | [...] back pain can be addressed and impr taigo with physical therapy. Recommendations/Plan: A 30 minute [...] and Independent Home Exercise Program DELFINA MOLINA [facility] Mail code CH 4P [facility] [address] [facility] [address] Ailyn Foster 01/05/20 1:29 PM PDTCMA [...]
--- OUTSIDE RECORDS SUMMARY | ~2020-02-29 | XMS | Encounter Summary ---
Demographics + + + | Address | [address] | | | [place] [address] | + + + | Home Phone [...] Team Providers + +------+ + | Care Therapist'S Assistant Name | Role | Phone | [...] | | | | | | Floor [place], [place] | | | | | | [address] | | | | | | [phone] | | | +--------+ + + + [...] Miranda Lambert - 10/14/2006 7:[address] [facility] Visual [employer] [facility] Multidisciplinary Patient Care Conference Summary Report The following providers participated in Belinda Meehan's Multidisciplinary patient Care C onference discussion on 10/14/2006: Medical Provider: VIOLA Ng Physical Therapist: Nathalia Arora PT Psychologist: Lukasz Ogden, PhD Our findings and recommendations are summarized in our initial notes. Our treatment plan a t the [facility] [place] includes: Medical: scheduled follow up 10/23/06 Physical [...]
--- OUTSIDE RECORDS SUMMARY | ~2020-02-29 | XMS | Encounter Summary ---
Demographics + + + | Address | [address] | | | [place] [address] | + + + | Home Phone [...] Providers + +------+ + | Care Net Developer Consultant Name | Role | Phone [...] [place] | | | | | [place] [address] | [place] [address] | | | | | [phone] | [phone] | | | | | | | [...] | | | | | | [address] [facility] | | | | | | [place] [address] | | | | | | [phone] | | | | | | | [...]
--- OUTSIDE RECORDS SUMMARY | ~2020-02-29 | XMS | Encounter Summary ---
Demographics + + + | Address | [address] | | | [place] [address] | + + + | Home Phone [...] Team Providers + +------+ + | Care Tricot Knitting Machine Operator Name | Role | [...] + + | 09/13/ | Telephone | [facility] | Alanis, | Appointment | | 2018 | | MEDICINE [address] | MD [place] | | | | | [place], | [address] [facility] | | | | | [place] [address] | [place] [address] | | | | | [phone] | | | | | | | [...] | | | | | [place] [address] | | | | | | [phone] | | | | | | | | +--------+---------+ + + + documented as of this encounter Visit Diagnoses Not on filedocumented in this encounter"
--- OUTSIDE RECORDS SUMMARY | ~2020-02-29 | XMS | Encounter Summary ---
Demographics + + + | Address | [address] | | | [place] [address] | + + + | Home Phone [...] Providers + +------+ + | Care Manufacturing Engineer Assembly Name | Role | Phone | + +------+ + | Pedrito Gutierrez MD | PCP | | + +------+ + Encounter Details +--------+---------+ + + + | Date | Type | Department | Care Team | Description | +--------+---------+ + + + | 07/30/ | Office | Comprehensive Pain | Nathalia Arora | Cervical Spondylosis | | 2006 | Visit | [facility] | [address] | without Myelopathy | | | | [address] | [address] [place], | (Primary Dx); | | | | [facility] for | [place] [address] | 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 1960 Start of Care: 06/23/2006 Referring Provider: [...] her today. Patient has multiple appts. At [facility] today, including a f/u regarding her [...]
--- OUTSIDE RECORDS SUMMARY | ~2020-02-29 | XMS | Encounter Summary ---
Demographics + + + | Address | [address] | | | [place] [address] | + + + | Home Phone [...] Team Providers + +------+ + | Care Grid Casting Machine Operator Helper Name | Role | [...] + + | 01/20/ | Refill | [facility] | Alanis, | Medication Refill | | 2017 | | MEDICINE [address] | MD [place] | | | | | [place], | [address] [facility] | | | | | [place] [address] | [place] [address] | | | | | [phone] | [phone] | | | | | | | [...] | | | | | [place] [address] | | | | | | [phone] | | | | | | | | +--------+---------+ + + + documented as of this encounter Visit Diagnoses Not on filedocumented in this encounter"
--- OUTSIDE RECORDS SUMMARY | ~2020-02-29 | XMS | Encounter Summary ---
Demographics + + + | Address | [address] | | | [place] [address] | + + + | Home Phone [...] Providers + +------+ + | Care Service Order Taker Name | Role | Phone | + [...] + + | 11/03/ | Telephone | [facility] | Alanis, | Headache | | 2018 | | MEDICINE [address] | MD [place] | | | | | [place], | [address] [facility] | | | | | [place] [address] | [place] [address] | | | | | [phone] | [phone] | | | | | | | [...] seek medical treatment at the ED in [place] for any worsening symptoms. Patient understands and accepts. Please a dvise INTeBob Young - 11/03/2018 8:47 AM PDTPatient called states she's needing to rcisti rankin with nurse to get some advise. [...] | | | | | | [address] [place] [address] [place] | | | | | | [place] [address] | | | | | | [phone] | | | | | | | | +--------+---------+ + + + documented as of this encounter Visit Diagnoses Not on filedocumented in this encounter"
--- OUTSIDE RECORDS SUMMARY | ~2020-02-29 | XMS | Encounter Summary ---
Demographics + + + | Address | [address] | | | [place] [address] | + + + | Home Phone [...] Providers + +------+ + | Care Rn Cardiovascular Name | Role | Phone | + [...] | Neurology | Diagnoses | [place], | [place], | | | | | Migraine | NIHARIKA Jean | Merari Lopez MD | | | | | headache | [address] | | | | | | Procedures | [address] | | | | | | CONSULT TO | [place], [place] | | | | | | NEUROLOGY | [address] | | +--------+--------+ + + + + [...] | (Primary Dx); | | | | [facility] | | Migraine Headache; | | | | [address] | | Opioid Dependence, | | | [facility] | | Continuous (HCC); | | | | and Healing, | | Neck Pain; Right | | | | | | shoulder rotator | | | | Floor [facility] [place] | | cuff strain; | | | | [address] | | Spondylosis with | | | | [phone] | | Myelopathy, Lumbar | | | [...] orthopedic surgical workup 3. Schedule Neurology evaluation [facility] order placed for Dr. Merari Mittal MD 4. Follow up 11/11/06 documented in this encounter Progress Notes Delfina Molina - 10/23/2006 1:20 PM PDTFormatting of this note might be different from th e original. 10/23/2006 Belinda Meehan is a 46 y.o. female [facility] Comprehensive Pain Center Return [...] car. She has not been seeing the [facility] PT , await ing the surgical plan for her left knee. MRI done, ordered by Dr. Ibarra who referred to Dr. Angel Morales for surgical opinion, scheduled for 10/28/06. She continues to see Dr. Alin adames at [facility] and reports benefit and would like to [...] Collection Time Resulting Agency 10/05/2006 9:20 AM [facility] DEPARTMENT OF RADIOLOGY Component [...] the free margin and undersurface of the beer coil cleaner horn of the medial meniscus suspicious for [...] the left knee 3. Schedule Neurology evaluation [facility] order placed for Dr. Merari Mittal MD 4. Follow up 11/11/06 to reivew pain management 5. Cntinue with PT and psychology as scheduled DELFINA MOLINA [facility] Comprehensive Pain Center Mail code CH 4P [facility] and [address] [address] Valencia Lagunas - 10/23 12:47 [...]
--- OUTSIDE RECORDS SUMMARY | ~2020-02-29 | XMS | Encounter Summary ---
Demographics + + + | Address | [address] | | | [place] [address] | + + + | Home Phone [...] + +------+ + | Care Circuit Court Clerk Name | Role | Phone [...] + + | 03/04/ | Telephone | [facility] | Alanis, | Fever | | 2017 | | MEDICINE [address] | MD [place] | | | | | [place], | [address] [facility] | | | | | [place] [address] | [place] [address] | | | | | [phone] | | | | | | | [...] | | | | | [place] [address] | | | | | | [phone] | | | | | | | | +--------+---------+ + + + documented as of this encounter Visit Diagnoses Not on filedocumented in this encounter"
--- OUTSIDE RECORDS SUMMARY | ~2020-02-29 | XMS | Encounter Summary ---
Demographics + + + | Address | [address] | | | [place] [address] | + + + | Home Phone [...] Providers + +------+ + | Care Enterprise Sales Person Name | Role | Phone [...] + + | 05/26/ | Telephone | [facility] | Alanis, | Diarrhea | | 2017 | | MEDICINE [address] | MD [place] | | | | | [place], | [address] [facility] | | | | | [place] [address] | [place] [address] | | | | | [phone] | | | | | | | [...] | | | | | [place] [address] | | | | | | [phone] | | | | | | | | +--------+---------+ + + + documented as of this encounter Visit Diagnoses Not on filedocumented in this encounter"
--- OUTSIDE RECORDS SUMMARY | ~2020-02-29 | XMS | Encounter Summary ---
Demographics + + + | Address | [address] | | | [place] [address] | + + + | Home Phone [...] Team Providers + +------+ + | Care Synthetic Filament Extruder Name | Role | Phone | + [...] + + | 01/23/ | Telephone | [facility] | Alanis, | Blister | | 2019 | | MEDICINE [address] | MD [place] | | | | | [place], | [address] [facility] | | | | | [place] [address] | [place] [address] | | | | | [phone] | | | | | | | [...] | | | | | [place] [address] | | | | | | [phone] | | | | | | | | +--------+---------+ + + + documented as of this encounter Visit Diagnoses Not on filedocumented in this encounter"
--- OUTSIDE RECORDS SUMMARY | ~2020-02-29 | XMS | Encounter Summary ---
Demographics + + + | Address | [address] | | | [place] [address] | + + + | Home Phone [...] Providers + +------+ + | Care Core Winding Operator Name | Role | Phone [...] as of this encounter Progress Notes Interface, Nephrology Nurse In - 01/11/2005 6:26 PM PDTClinic Date: [...] a gastric bypass surgery. Dwaine Al M.D. [facility] / [id number] / [id number] / [id number] / Tdocumented in this encounter Plan of Treatment Not on filedocumented as of this encounter Visit Diagnoses Not on filedocumented in this encounter"
--- OUTSIDE RECORDS SUMMARY | ~2020-02-29 | XMS | Encounter Summary ---
Demographics + + + | Address | [address] | | | [place] [address] | + + + | Home Phone [...] Team Providers + +------+ + | Care Bread Distributor Name | Role | Phone | [...] + + | 06/25/ | Telephone | [facility] | Alanis, | Illness | | 2017 | | MEDICINE [address] | MD [place] | | | | | [place], | [address] [facility] | | | | | [place] [address] | [place] [address] | | | | | [phone] | [phone] | | | | | | | [...] encounter Miscellaneous Notes Telephone Encounter - Maggie Motnoya LPN - 06/25/2017 9:41 AM PSTReceived call from slick jacobsen complaining of flu like symptoms, headache, bodyaches, chills, nausea/vomiting, diarrhea. Can not keep anything down. Temp unknown, patient does not have a thermometer to check. Shania peters lives out of town and advised to seek medical treatment at an urgent care or ER in [facility]. Patient understands and accepts. notified of advise. [...] | | | | | [place] [address] | | | | | | [phone] | | | | | | | | +--------+---------+ + + + documented as of this encounter Visit Diagnoses Not on filedocumented in this encounter"
--- OUTSIDE RECORDS SUMMARY | ~2020-02-29 | XMS | Encounter Summary ---
Demographics + + + | Address | [address] | | | [place] [address] | + + + | Home Phone [...] + +------+ + | Care Stained Glass Glazier Name | Role | Phone | + [...] Registratio | [facility] | [address] | | | | n | [place] Mailcode: RPB07 | [place], [place] | | | | | [place], [place] | [address] | | | | | [address] | [phone] | | | | | [phone] | | | +--------+ + + + [...] REG | [address] | [place], [place] | | | [facility] | | [address] | | + + + + + [...] | NaomiU/ml | | | | | [facility] [...] | + + + + + | [facility] | [address] | [place] [address] | | | LABORATORY | | | [...] OF | [address] | [place] [address] | | | PATHOLOGY | [address] | | | + + + + + | [facility] DEPARTMENT OF | [address] | [place] [address] | | | PATHOLOGY | [address] [...] [facility] DEPARTMENT OF | [address] [facility] | [place] [address] | | | PATHOLOGY | [address] | | | + + + + + | [facility] DEPARTMENT OF | [address] [facility] | [place] [address] | | | PATHOLOGY | [address] [...] Performed At | + + + | [id number] Estimated GFR > 60 mL/min/1.73 sq m if non- | [facility] | | [id number] Estimated GFR > 60 mL/min/1.73 sq m [...] + | [facility] | [facility] | [place] [address] | | | PATHOLOGY | [address] | | | + + + + + | [facility] DEPARTMENT OF | [facility] | [place] [address] | | | PATHOLOGY | [address] | | | + + + + + documented in this encounter Visit Diagnoses Not on filedocumented in this encounter"
--- OUTSIDE RECORDS SUMMARY | ~2020-02-29 | XMS | Encounter Summary ---
Demographics + + + | Address | [address] | | | [place] [address] | + + + | Home Phone [...] Team Providers + +------+ + | Care Technician'S Helper Name | Role | Phone | + +------+ + | [place] Thapa | PCP | | | MD | | | + +------+ + Reason for Visit + +--------+ + | Reason | Onset | Comments | | | Date | | + +--------+ + | Radiology | 12/28/ | | | Appointment | 2018 | | + +--------+ + Encounter Details +--------+ + + + + | Date | Type | Department | Care Team | Description | +--------+ + + + + | 12/28/ | Telephone | [facility] | Alanis, | Radiology | | 2017 | | MEDICINE [address] | MD [place] | Appointment | | | | [place], | [address] [facility] | | | | | [place] [address] | [place] [address] | | | | | [phone] | [phone] | | | | | | | [...] | | | | | [place] [address] | | | | | | [phone] | | | | | | | | +--------+---------+ + + + documented as of this encounter Visit Diagnoses Not on filedocumented in this encounter"
--- OUTSIDE RECORDS SUMMARY | ~2020-02-29 | XMS | Encounter Summary ---
Demographics + + + | Address | [address] | | | [place] [address] | + + + | Home Phone [...] + +------+ + | Care Oil Well Services Supervisor Name | Role | Phone [...] + | 03/10/ | Telephone | [facility] | Alanis, | Grief/ Loss | | 2018 | | MEDICINE [address] | MD [place] | | | | | [place], | [address] [place] | | | | | [place] [address] | [place] [address] | | | | | [phone] | | | | | | | [...] | | | | | [place] [address] | | | | | | [phone] | | | | | | | | +--------+---------+ + + + documented as of this encounter Visit Diagnoses Not on filedocumented in this encounter"
--- OUTSIDE RECORDS SUMMARY | ~2020-02-29 | XMS | Encounter Summary ---
Demographics + + + | Address | [address] | | | [place] [address] | + + + | Home Phone [...] Providers + +------+ + | Care Supply Analyst Name | Role | Phone | + +------+ + | Sulaiman Carrera MD | PCP | | + +------+ + Encounter Details +--------+ + + + + | Date | Type | Department | Care Team | Description | +--------+ + + + + | 10/05/ | Ancillary | Registration [address] | Ramon Ibarra, | | | 2006 | Registratio | [facility] Naeem Mcrae | [address] [facility] | | | | [address] | [address] Mailcode: RPB07 | [place], [place] | | | | | [place], [place] | [address] | | | | | [address] | [phone] | | | | | [phone] | | | +--------+ + + + [...]
--- OUTSIDE RECORDS SUMMARY | ~2020-02-29 | XMS | Encounter Summary ---
Demographics + + + | Address | [address] | | | [place] [address] | + + + | Home Phone [...] + +------+ + | Care Middle School Band Teacher Name | Role | Phone | [...] + + | 12/20/ | Telephone | [facility] | Alanis, | Results | | 2019 | | MEDICINE [address] | MD [place]ron[place] | | | | | [place], | [address] [facility] | | | | | [place] [address] | [place] [address] | | | | | [phone] | [phone] | | | | | | | [...] Miscellaneous Notes Telephone Encounter - Shanta Whaley, Mini Shifter - 12/21/2019 3:34 PM PDTPt ad vised [...] of monthly. elephone Encounter - Shanta Whaley Mini Shifter - 12/21/2019 2:52 PM PDTAdv ised pt [...] Petrona | | | | | | [facility] [address] | | | | | | [place] [address] | | | | | | [phone] | | | | | | | | +--------+---------+ + + + documented as of this encounter Visit Diagnoses Not on filedocumented in this encounter"
--- OUTSIDE RECORDS SUMMARY | ~2020-02-29 | XMS | Encounter Summary ---
Demographics + + + | Address | [address] | | | [place] [address] | + + + | Home Phone [...] Providers + +------+ + | Care Concrete Boom Pump Operator Name | Role | Phone [...] as of this encounter H&P Notes Interface, Production Broacher In - 01/12/2005 10:09 AM PDT [id number] 12/05/2004 12/05/2004 [id number] GEOVANNI Barnes Date of Service: 12/05/2004 History [...] Norberto Monsivais M.D. Chris Padgett M.D. / [id number] / [id number] / [id number] / Electronically signed by Chris Padgett 12-31-2004 03:02:34 PM documented i n this encounter Plan of Treatment Not on filedocumented as of this encounter Visit Diagnoses Not on filedocumented in this encounter"
--- OUTSIDE RECORDS SUMMARY | ~2020-02-29 | XMS | Encounter Summary ---
Demographics + + + | Address | [address] | | | [place] [address] | + + + | Home Phone [...] Team Providers + +------+ + | Care Skiing Instructor Name | Role | Phone | [...] as of this encounter Progress Notes Interface, Station Inspector In - 01/12/2005 8:09 AM PDTClinic Date: [...] months. Chris Padgett M.D. ROSA / SHARIF [id number] / [id number] / [id number] / Tdocumented in this encounter Plan of Treatment Not on filedocumented as of this encounter Visit Diagnoses Not on filedocumented in this encounter"
--- OUTSIDE RECORDS SUMMARY | ~2020-02-29 | XMS | Encounter Summary ---
Demographics + + + | Address | [address] | | | [place] [address] | + + + | Home Phone [...] Providers + +------+ + | Care Dial Lathe Operator Name | Role | Phone [...] + + | 04/02/ | Telephone | [facility] | Alanis, | Other | | 2017 | | MEDICINE [address] | MD [place] | | | | | [place], | [address] [facility] | | | | | [place] [address] | [place] [address] | | | | | [phone] | [phone] | | | | | | | [...] | | | | | [place] [address] | | | | | | [phone] | | | | | | | | +--------+---------+ + + + documented as of this encounter Visit Diagnoses Not on filedocumented in this encounter"
--- OUTSIDE RECORDS SUMMARY | ~2020-02-29 | XMS | Encounter Summary ---
Demographics + + + | Address | [address] | | | [place] [address] | + + + | Home Phone [...] + +------+ + | Care Sewer Line Photo Inspector Name | Role | Phone | + +------+ + | Maria Esther Cintron MD | PCP | | + +------+ + Encounter Details +--------+ + + + + | Date | Type | Department | Care Team | Description | +--------+ + + + + | 09/21/ | Telephone | Dig[facility]ive Health | Chris Padgett, | | | 2008 | | Tobias [address] | [address] [facility] | | | | | [place] Mailcode: [facility] | [address] | | | | | Center for Health | [place], [place] | | | | | and Healing, | [address] | | | | | Building , 6th | [phone] | | | | | Floor [place], [place] | | | | | | [address] | | | | | | [phone] | | | +--------+ + + + [...] istratively closed with the authorization of the [facility] Committee. elephone Encounter - Nuris Cardenas Rn - 09/21/2008 12:08 PM PDTNotified of normal egd cont carafateElectronically sign ed by Nuirs Cardenas Rn at 09/21/2008 12:08 PM PDTTelephone [...]
--- OUTSIDE RECORDS SUMMARY | ~2020-02-29 | XMS | Encounter Summary ---
Demographics + + + | Address | [address] | | | [place] [address] | + + + | Home Phone [...] Providers + +------+ + | Care Video Effects Editor Name | Role | Phone [...] + | 11/17/ | Telephone | [facility] | Alanis, | ER Follow-up | | 2019 | | MEDICINE [address] | MD [place] | | | | | [place], | [address] [place] | | | | | [place] [address] | [place] [address] | | | | | [phone] | [phone] | | | | | | | [...] the name. Please call slick jacobsen at [phone]. docum ented in this encounter Plan of [...] | | | | | [place] [address] | | | | | | [phone] | | | | | | | | +--------+---------+ + + + documented as of this encounter Visit Diagnoses Not on filedocumented in this encounter"
--- OUTSIDE RECORDS SUMMARY | ~2020-02-29 | XMS | Encounter Summary ---
Demographics + + + | Address | [address] | | | [place] [address] | + + + | Home Phone [...] as of this encounter Progress Notes Interface, Barrelhead Inspector In - 11/05/2005 2:06 AM PDT [id number] GEOVANNI SK[place]TON Molly [id number] Clinic Date: 10/20/2005 Clinic: Bariatric Surgery Clinic Subjective: Ms. Meehan returns today for continued evaluation of her abdominal pain. She has had a gastric bypass followed by a panniculectomy approximately 1 year ago. She has had diffuse sharp and crampy abdominal pain which lasts up to 45 minutes. She says "it takes her breath away." She went to the emergency room at [facility] last night and got some IV pain [...] . Wali Valentine M.D. CONNOR / SHARIF [id number] / [id number] / [id number] / [id number] Electronically signed by Luther Valentine 11-04-2005 11:36:40 AM documented i n this encounter Plan of Treatment Not on filedocumented as of this encounter Visit Diagnoses Not on filedocumented in this encounter
--- OUTSIDE RECORDS SUMMARY | ~2020-02-29 | XMS | Encounter Summary ---
Demographics + + + | Address | [address] | | | [place] [address] | + + + | Home Phone [...] Team Providers + +------+ + | Care Gage Designer Name | Role | Phone | [...] [address] [place] | | | | | [place] | [address] | | | | | [address] | | | | | | [phone] | | | +--------+ + + + [...] | | | | | [place] [address] | | | | | | [phone] | | | | | | | | +--------+---------+ + + + documented as of this encounter Visit Diagnoses Not on filedocumented in this encounter"
--- OUTSIDE RECORDS SUMMARY | ~2020-02-29 | XMS | Encounter Summary ---
Demographics + + + | Address | [address] | | | [place] [address] | + + + | Home Phone [...] Team Providers + +------+ + | Care Photogrammetry Airplane Pilot Name | Role | Phone [...] | [address] | NADEGE Lopez [facility] | Pre-Operative | | | | [address] | [facility] | Examination (Primary | | | | Mailcode: [id number] | [address] | Dx) | | | | Physician's Pavilion | [address] [place], | | | | | [place], [place] | [place] [address] | | | | | [address] | [phone] | | | | | [phone] | | | +--------+---------+ + + + [...] take place on the hill at the [facility]: Surgeries scheduled in the [facility] (4 North): registration is located on the 4th floor of [facility] (Day Surgery). Surgeries scheduled in the [facility]: registration is located on the 9th floor. Surgeries scheduled in [facility]: registration is located on the 6th floor. Surgeries scheduled in the [facility]: registration is located i n the [facility] on the first floor. For surgeries scheduled to take place at the [facility]: registration is l [...] If you use specialized medical equipment at [facility], please check with your provider before [...] take place on the hill at the [facility]: Surgeries scheduled in the [facility] ( North): registration is located on the 4th floor of [facility] (Day Surgery). Surgeries scheduled in the [facility]: registration is located on the 9th floor. Surgeries scheduled in [facility]: registration is located on the 6th floor. Surgeries scheduled in the [facility]: registration is located i n the [facility] on the first floor. For surgeries scheduled to take place at the [facility] Healing: registration is l ocated [...] If you use specialized medical equipment at [facility], please check with your provider before [...] 08/2007 right knee Hx lumbar fusion 05/2008 L5-A5reywrs with bone spur removals Hx appendectomy Hx [...] (Ciprofloxacin) Tramadol Morphine IM ( only in [facility]) made gut pain worse 08/27/06: Trial of oral MSIR caused leg swelling Clarithromycin Hives Mainly in the legs Pfwowxp-ekbjjxsjge-wwm-caff Balance problems Amitriptyline Grand mal seizures Fioricet W/codeine (Qyv-ppmqvevvlv-dbnzoxldts-caf) FAMILY HISTORY: Family History Problem Relation Cancer [...] [facility] DEPARTMENT OF | [address] | [place] [address] | | | PATHOLOGY | [address] | | | + + + + + | [facility] OF | [address] | [place] [address] | | | PATHOLOGY | [address] [...] + | [facility] | [address] | [place] [address] | | | PATHOLOGY | [address] | | | + + + + + | [facility] | [address] | [place] [address] | | | PATHOLOGY | [address] | | | + + + + + documented in this encounter Visit Diagnoses + + | Diagnosis | + + | Other specified pre-operative examination - Primary | + + documented in this encounter
--- OUTSIDE RECORDS SUMMARY | ~2020-02-29 | XMS | Encounter Summary ---
Demographics + + + | Address | [address] | | | [place] [address] | + + + | Home Phone [...] | [facility] | | | and [...] Providers + +------+ + | Care Pharmaceutical Detailer Name | Role | Phone | [...] + + | 02/22/ | Refill | [facility] | Alanis, | Medication Refill | | 2017 | | MEDICINE [address] | MD [place] | | | | | [place], | [address] [facility] | | | | | [place] [address] | [place] [address] | | | | | [phone] | [phone] | | | | | | | [...] | | | | | [place] [address] | | | | | | [phone] | | | | | | | | +--------+---------+ + + + documented as of this encounter Visit Diagnoses Not on filedocumented in this encounter"
--- OUTSIDE RECORDS SUMMARY | ~2020-02-29 | XMS | Encounter Summary ---
Demographics + + + | Address | [address] | | | [place] [address] | + + + | Home Phone [...] Providers + +------+ + | Care Library Monitor Name | Role | Phone | [...] [address] | | | | | | [place], [place] | | | | | | [address] | | | | | | [phone] | | | +--------+ + + + [...]
--- OUTSIDE RECORDS SUMMARY | ~2020-02-29 | XMS | Encounter Summary ---
Demographics + + + | Address | [address] | | | [place] [address] | + + + | Home Phone [...] Providers + +------+ + | Care Quality Systems Technician Name | Role | Phone [...] | 2006 | Visit | [facility] | MD Darrion,PhD [address] | (Primary Dx) | | | | for Health and | [address] | | | | | Healing [address] | [place], [place] | | | | | [facility] | [address] | | | | | Health and Healing, | [phone] | | | | | [facility] | | | | | | Floor [place], [place] | | | | | | [address] | | | | | | [phone] | | | +--------+---------+ + + + [...] [facility]) made gut pain worse REVIEW OF [...] normal limits except as noted. RIGHT LEFT Beverly Crepitation J Sign Apprehension LIGAMENTS: Within normal [...] are not effective. Angel Morales M.D., Ph.D. Bobbin Marker, Surgical Lapel Padder Blindstitch Orthopedics & Cartilage Reconstruction Surgery Department of Orthopedics Joyce@[facility] documented in this encou nter Plan of Treatment Not on filedocumented as of this encounter Visit Diagnoses + + | Diagnosis | + + | Osteoarthrosis, unspecified whether generalized or localized, lower leg - Primary | + + documented in this encounter
--- OUTSIDE RECORDS SUMMARY | ~2020-02-29 | XMS | Encounter Summary ---
Demographics + + + | Address | [address] | | | [place] [address] | + + + | Home Phone [...] Team Providers + +------+ + | Care Bobbin Cleaner Hand Name | Role | Phone [...] + + | 12/10/ | Office | [facility] | Emmy-Kamlesh, | Elevated liver | | 2018 | Visit | MEDICINE [address] | MD [place] | enzymes (Primary | | | | AVE [place], | [address] [place] | Dx); Limb cramps; | | | | [place] [address] | [place] [address] | Physical | | | | [phone] | [phone] | deconditioning; | | | | | [...] Refill Abdominal Pain Spasms legs and hips [facility] Belinda Meehan is a 57 y.o. y/o [...] is interested in doing physical therapy in [place], pool therapy has helped in the pas [...] (See Comments) Confused and questionable for seizures Qocklfvyrx-Bbck-Kfpxcohc Cephalexin Hives Duloxetine Migraines and nausea Ketorolac Hives Morphine Swelling Ropinirole Hcl Hives Tramadol Hcl Nausea Only Bvpbjnfamp-Xipd-Ndrxuxzi Hives and Rash Ciprofloxacin Hives and Rash [...] Note: Parts of this documentwere created using [employer] speech recognition software. As a r esult, [...] [place] | | | | | | [place] [address] | | | | | | [phone] | | | | | | | [...] [address] | [place] | [phone] | | [facility] | | [address] | | | - LABORATORY | | [...] [address] | [place] | [phone] | | [facility] | | [address] | | | - LABORATORY | | [...] | | | | > 0.9 The [facility] | | | | | | recommends that a | | | | | | positive HCV antibody | | | | | | result be followed up | | | | | | with a HCV Nucleic Acid | | | | | | Amplification test | | | | | | ([id number]). | | | | + + + + + + + + | Specimen | + + | Blood | + + + + + | Narrative | Performed At | + + + | Performed at: 01 - [facility] [place] [address], | REFERENCE LAB | | [place], [place] [id number] Net Architect: Bandar Gan MD, Phone: | [place]IAN[place] - [place] | | [phone] | | + + + + + + + + | Performing | Address | City/State/Zipcode | Phone Number | | Organization | | | | + + + + + | REFERENCE LAB | [address] | [place], [place] | [phone] | | [facility] | [facility] | [address] | | + + + + + [...] | | | | First dose on [facility] 10/15/17 at 1215 | | [...]
--- OUTSIDE RECORDS SUMMARY | ~2020-02-29 | XMS | Encounter Summary ---
Demographics + + + | Address | [address] | | | [place] [address] | + + + | Home Phone [...] + +------+ + | Care Profile Saw Setup Operator Name | Role | Phone [...] Mychal Kovacs | | | | | [place] [facility] | [place], [place] | | | | | [address] | [address] | | | | | [address] | [phone] | | | | | Physician's Pavilion | | | | | | Physician's | | | | | | Pavilion [place], | | | | | | [place] [address] | | | | | | [phone] | | | +--------+ + + + [...] like Dr Meeks or JOHN to call [employer] at [phone] regarding a billing code they are needing. [...]
--- OUTSIDE RECORDS SUMMARY | ~2020-02-29 | XMS | Encounter Summary ---
Demographics + + + | Address | [address] | | | [place] [address] | + + + | Home Phone [...] Providers + +------+ + | Care Farm Crew Leader Name | Role | Phone [...] Rd | | | | | | [place], [place] | | | | | | [address] | | | +--------+ + + + [...] as of this encounter Progress Notes Interface, Hay Rake Operator In - 03/12/2007 2:28 AM PDT [id number] GEOVANNI SKELTON [place] [id number] Clinic Date: 02/23/2007 Clinic: Endocrinology Subjective: Belinda [...] performed next Thursday, March 01, 2007, in [place]. The right knee will be replaced in [...] patch 25 mcg for 72 hours. 2. Dierks/acetaminophen 10 mg/325 mg, 1 every 6 hours [...] about 3 months. Beto Meeks M.D. / [id number] / [id number] / [id number] / [id number] cc: Pedrito Gutierrez M.D. [address] [place] [address] Chris Padgett M.D. Department of Surgery, [facility] Electronically signed by Beto Meeks 03-11-2007 04:41:13 PM nterface, Hay Rake Operator In - 03/12/2007 2:28 AM PDT [id number] GEOVANNI [place] [id number] Clinic Date: 02/23/2007 Clinic: Endocrinology Belinda Meehan [...] her primary care provider, Dr. Gutierrez in [place]. She had a followup eye exam today, [...] replacement next Thursday (in 6 days) in [place], [place]. The right knee replacement tentatively will [...] needed. Beto Meeks M.D. PD / HS [id number] / [id number] / [id number] / [id number] cc: Pedrito Gutierrez M.D. [address] [place] [address] Joanna Arshad M.D. Electronically signed by Beto Meeks 03-11-2007 04:41:08 PM documented in this encounter Plan of Treatment Not on filedocumented as of this encounter Visit Diagnoses Not on filedocumented in this encounter"
--- OUTSIDE RECORDS SUMMARY | ~2020-02-29 | XMS | Encounter Summary ---
Demographics + + + | Address | [address] | | | [place] [address] | + + + | Home Phone [...] + +------+ + | Care Director Of Healthcare Systems Name | Role | Phone | [...] | | 2006 | | [facility] | MD Darrion,PhD [address] | | | | | for Health and | [address] | | | | | Healing [address] | [place], [place] | | | | | [facility] | [address] | | | | | Health and Healing, | [phone] | | | | | | | | | | | Floor [place], [place] | | | | | | [address] | | | | | | [phone] | | | +--------+ + + + [...] talk with brian gerry non surg options. [phone] signed by Pamela Andino(Inactive) Annel Cowart at 09/01/2006 2:57 PM PD Tdocumented in this encounter Plan of Treatment Not on filedocumented as of this encounter Visit Diagnoses Not on filedocumented in this encounter"
--- OUTSIDE RECORDS SUMMARY | ~2020-02-29 | XMS | Encounter Summary ---
Demographics + + + | Address | [address] | | | [place] [address] [...] | | | | [place], | [address] | | | | | | [place] | Phone: | | | | | | [address] | [phone] | | | | | | Phone: | Fax: | | | | | | [phone] | [phone] | | | | | | Fax: | | | | | | | [phone] | | +--------+ + + + + [...] + + | 04/18/ | Office | [facility] | Alanis, | Poor memory (Primary | | 2019 | Visit | MEDICINE [address] | MD [place] | Dx); [address] | | | | [address] [place], | [address] [place] | deficiency; [place] | | | | [place] [address] | [place] [address] | liver | | | | [phone] | [phone] | | | | | | | [...] nl. No depression or suicidal thinki ng. [place] Cognitive Assessment (MoCA) Office Visit from 04/18/2019 in [facility] MEDICINE Visuospatial / Executive 4 Naming 2 Attention - List of Digits 1 Attention - List of Letters 1 Attention - Serial 7 Subtraction 0 Language - Repeat 0 Language - Fluency 0 Abstraction 1 Memory - Delayed Recall 0 Orientation 6 <=12 year education 1 Total Score (Calculated) 16 Administered the [place] Cognitive Assessment (MoCA) a cognitive screening measure [...] Procedure: COLONOSCOPY; Surgeon: Luther Brito MD; Location: [facility] MEDICAL PROCEDURE UNIT DILATION AND CURETTAGE OF UTERUS ELBOW SURGERY FINGER TRIGGER RELEASE 2002 FINGER TRIGGER RELEASE 2010 GASTRIC BYPASS SURGERY 2004 HYSTERECTOMY 05/14/1980 JOINT REPLACEMENT Bilateral 2006 2007 KNEE ARTHROSCOPY 2005 LAPAROSCOPY 01/27/2015 LAPAROTOMY 2008 ROTATOR CUFF REPAIR 2005 SPINE SURGERY TONSILLECTOMY 1964 UPPER GASTROINTESTINAL ENDOSCOPY N/A 12/18/2017 Procedure: EGD; Surgeon: Luther Brito MD; Location: [facility] MEDICAL PROCEDURE UNIT CURRENT MEDICATIONS [...] Allergen Reactions Ensure Diarrhea Food Diarrhea Lactose Gkmglfknay-Zvv-Disu-Codeine Other (See Comments) Balance problems Codeine Sulfate Nausea Only Food Allergy Formula Diarrhea Ensure Levofloxacin Hives, Itching and Rash Butalbital Ropinirole Amitriptyline Hcl Other (See Comments) Confused and questionable for seizures Oubmgzssbl-Yian-Bhuvqlfl Rash duplicate Cqbatrikhx-Kyxa-Wqmxqidb Hives and Rash Cephalexin Hives Ciprofloxacin Hives [...] 1. Parts of this documentwere created using frestyl speech recognition software. As a resu lt, [...] | | | | | [place] [address] | | | | | | [phone] | | | | | | | | +--------+---------+ + + + + + +--------+ + + | Name | Type | Priori | Associated Diagnoses | Order Schedule | | | | ty | | | + + +--------+ + + | Located Within [facility] Neurology | Outpatient | Routin | Poor [...] | 0.80 | 0.55 - 1.02 | [facility] | | | | | mg/dL | [facility] | | | | | | MEDICAL | | | | | | CENTER - | | | | | | LABORATORY | | + + + + + + | eGFR, | >60Comment: GLOMERULAR | >=60 | [facility] | | | non- | FILTRATION | mL/min/1.73m2 | [facility] | | | Pakistani | RATE,ESTIMATED | | MEDICAL | | | | mL/min/1.47r4Ftbe than | | CENTER - | | [...] ST. | [address] | [place], [place] | [phone] | | [facility] | | [address] | | | - LABORATORY | | [...] [address] | [place] | [phone] | | [facility] | | [address] | | | - LABORATORY | | | | + + + + + Vitamin B-12 (04/18/2019 11:29 AM PST) + + + + + + | Component | Value | Ref Range | Performed | Pathologist | | | | | At | Signature | + + + + + + | VITAMIN | >[id number] (H)Comment: | 156 - 672 pg/mL | [...] + | [address] | [address] | [place], [place] | [phone] | | [facility] | | [address] | | | - LABORATORY | | [...]
--- OUTSIDE RECORDS SUMMARY | ~2020-02-29 | XMS | Encounter Summary ---
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 Since prior visit she had a 06/24/06: Bone density study and her T-Score -1.2 lumbar spine a nd -2.2 proximal femur. Collection Information Collection Date Collection Time Resulting Agency 03/10/2006 2:42 PM [facility] DEPARTMENT OF PATHOLOGY Component Results Component Value Range Status CALCIUM (LAB) 9.5 8.5 - 10.5 mg/dL Fin SPINE LUMBAR 2 VIEWS AT 1421 HOURS LUMBAR SPINE, 10/01/05 HISTORY: Back pain. FINDINGS: AP and lateral views of the lumbar spine show five fwv-pyi-boqcsbs lumbar vertebrae in normal alignment with no [...] spent in reviewing of chart, imaging and college counselor ing/coordindation of care. 1. For the [...] appropriate care and safety for your patient, [facility] r equires a [...] Please indicate and fax your response to [phone] 5. I called and left a message on [facility] general voice mail requesting he call me to discuss prescribing and patient care. DELFINA MOLINA [facility] Mail code CH 4P [facility] and [address] [address] asha Nolasco - 07/30/2006 7:35 [...] + | Performing | Address | City/State/[facility] | Phone Number | | Organization [...]
--- OUTSIDE RECORDS SUMMARY | ~2020-02-29 | XMS | Encounter Summary ---
Demographics + + + | Address | [address] | | | [place] [address] | + + + | Home Phone [...] Providers + +------+ + | Care Rehab Spec Name | Role | Phone | [...] Medication Refill | | 2018 | | [facility] [address] | MD Petrona | | | | | [place], | [address] [place] | | | | | [place] [address] | [place] [address] | | | | | [phone] | [phone] | | | | | | | [...] US be sent to [facility], [place] elephone Enc alejo - [...] | | | | | [place] [address] | | | | | | [phone] | | | | | | | | +--------+---------+ + + + documented as of this encounter Visit Diagnoses Not on filedocumented in this encounter"
--- OUTSIDE RECORDS SUMMARY | ~2020-02-29 | XMS | Encounter Summary ---
Demographics + + + | Address | [address] | | | [place] [address] | + + + | Home Phone [...] Providers + +------+ + | Care Dough Molder Hand Name | Role | Phone | [...] + + | 07/24/ | Office | [facility] Comprehensive | Delfina Lambert, | Chronic Bilateral | | 2008 | Visit | Pain Center at | ANP | Shoulder Pain | | | | [facility] | | (Primary Dx); Spinal | | | | [address] | | Fusion Lumbar spine | | | | [place] [facility] | | ; LBP (Low Back | | | | and Healing, | | Pain); Osteopenia; | | | | Building | | Fibromyalgia | | | | Floor [place], [place] | | syndrome 729.1; | | | | [address] | | Major Depressive | | | | [phone] | | Disorder, Recurrent | | | | | | Episode, Moderate | | | | | | ([facility] [...] Belinda Meehan is a 48 y.o. female [facility] Comprehensive Pain [...] drawing has be completed, which I reviewed. [facility] Brief Pain Inventory: (ten= worst [...] 300 mg) by oral route once daily nzbvsjtjfh-tkgysumznucmg-jcobeevf (FIORICET) 50-325-40 mg Oral Tablet take 2 [...] 278 01/18 Paniculectomy Hx lumbar fusion 05/2008 L1-[id number] with bone spur removals Family History Problem [...] rays of bilateral shoulders, today [facility] building third floor, I reviewed the [...] PAIN CENTER Mail code CH 4P [place] [facility] and [address] [address] dmundo Aiyln Malissa - 02/2009 3:13 PM PSTCMA History: [...] Faculty Other at 1:36 PM PDTScan - Edwige, Faculty - 08/31/2008 11:41 AM PDT documented [...] + +---------+ + + | [facility] | | | | | RADIOLOGY [...]
--- OUTSIDE RECORDS SUMMARY | ~2020-02-29 | XMS | Encounter Summary ---
Demographics + + + | Address | [address] | | | [place] [address] | + + + | Home Phone [...] Providers + +------+ + | Care Watch Dial Printer Name | Role | Phone | [...] + | 08/26/ | Telephone | [facility] | Alanis, | Headache (Adult - | | 2018 | | MEDICINE [address] | MD Petrona | Recurrent Or Known | | | | [place], | [address] [place] | Dx Migraines) | | | | [place] [address] | [place] [address] | | | | | [phone] | [phone] | | | | | | | [...] | | | | | | [address] [facility] | | | | | | [place] [address] | | | | | | [phone] | | | | | | | [...]
--- OUTSIDE RECORDS SUMMARY | ~2020-02-29 | XMS | Encounter Summary ---
Demographics + + + | Address | [address] | | | [place] [address] | + + + | Home Phone [...] Providers + +------+ + | Care Cone Marker Name | Role | Phone | [...] [address] | | | | | | [place], [place] | | | | | | [address] | | | | | | [phone] | | | +--------+ + + + [...]
--- OUTSIDE RECORDS SUMMARY | ~2020-02-29 | XMS | Encounter Summary ---
Demographics + + + | Address | [address] | | | [place] [address] | + + + | Home Phone [...] Providers + +------+ + | Care Barrel Rifler Operator Name | Role | Phone | [...] as of this encounter Procedure Notes Interface, Station Repairer In - 05/20/2005 10:44 AM PSTVascular Lab Date: 07/28/2003 Referring Physician: Jones Portillo Landry Examination: Cerebrovascular Exam Clinical Indications: TIA Findings: Arm blood pressures are 129mm/Hg on the right and 138mm/Hg on the left. There were no cervical bruits. Carotid pulses are palpable bilaterally. Duplex examination of both carotid bifurcations shows mild to minimal plaquing. There are only minimal flow velocity changes in the internal and external carotid arteries bilaterally. Both vertebral arteries are patent with antegrade flow. IMPRESSION: Minimally abnormal cerebrovascular study showing 1-16% stenosis of both internal carotid arteries and less than 50% stenosis of both external carotid arteries. Joanna Pratt/katty D: P cc: documente d in this encounter Plan [...]
--- OUTSIDE RECORDS SUMMARY | ~2020-02-29 | XMS | Encounter Summary ---
[...] Team Providers + +------+ + | Care Leader Assembler Name | Role | Phone | [...] 2006 | Visit | Rheumatology 3245 | TELECOMMUNICATIONS SPECIALIST | (Primary Dx); | | | | TRACE Sharmila Schilling | | Fibromyalgia; | | | | Mailcode: [id number] | | Fibromyalgia | | | | Outpatient Clinic | | | | | | Building [place], | | | | | | [place] [address] | | | | | | [phone] | | | +--------+---------+ + + + [...] discomfort- entire abd around to back. Seeing [facility] pain clinic. Fentanyl patch helped pain a [...]
--- OUTSIDE RECORDS SUMMARY | ~2020-02-29 | XMS | Encounter Summary ---
Demographics + + + | Address | [address] | | | [place] [address] | + + + | Home Phone [...] Providers + +------+ + | Care Park Warden Name | Role | Phone | [...] Rd | | | | | | [place], [place] | | | | | | [address] | | | +--------+ + + + [...] of this encounter Progress Notes Interface, Electronic Funds Transfer Coordinator In - 12/06/2006 2:32 AM PDT [id number] GEOVANNI SKELTON Molly [id number] Clinic Date: 10/29/2006 Clinic: Endocrinology Subjective: Belinda [...] been working with the Pain Clinic at [facility] to optimize her pain management. Fortunately, [...] patch 25 mcg for 72 hours. 2. Lee/acetaminophen 10 mg/325 mg, 1 every 6 hours [...] months. Beto Meeks M.D. PD / HS [id number] / [id number] / [id number] / [id number] cc: Pedrito Gutierrez M.D. [address] [place] [address] Chris Padgett M.D. Electronically signed by Beto Meesk 12-05-2006 05:17:05 AM documented in this encounter Plan of Treatment Not on filedocumented as of this encounter Visit Diagnoses Not on filedocumented in this encounter"
--- OUTSIDE RECORDS SUMMARY | ~2020-02-29 | XMS | Encounter Summary ---
Demographics + + + | Address | [address] | | | [place] [address] | + + + | Home Phone [...] + +------+ + | Care Ice Cream Chef Name | Role | Phone | [...] + + | 08/27/ | Telephone | [facility] Basilio | Nathalia Arora | Follow-up encounter | | 2006 | | Pain Center at | [address] | | | | | [facility] | [address] [place], | | | | | [address] | [place] [address] | | | | | [facility] | | | | | | and Healing, | | | | | | [facility] | | | | | | Floor [place], [place] | | | | | | [address] | | | | | | [phone] | | | +--------+ + + + [...]
--- OUTSIDE RECORDS SUMMARY | ~2020-02-29 | XMS | Encounter Summary ---
Demographics + + + | Address | [address] | | | [place] [address] | + + + | Home Phone [...] Team Providers + +------+ + | Care Nougat Cutter Machine Name | Role | Phone [...] | Procedures | [address] | [place] | | | | | CONSULT TO | [address] | [address] | | | | | GI PROCEDURE | Rd | floor | | | | | UNIT: EGD | [place], [place] | [place], [place] | | | | | | [address] | [address] | | | | | | Phone: | Phone: | | | | | | [phone] | [phone] | | | | | | | Fax: | | | | | | | [phone] | +--------+--------+ + + + + Consultation [...] | | | | | UNIT: | [place] | [place], [place] | | | | | COLONOSCOPY | [address] | [address] | | | | | | Phone: | Phone: | | | | | | [phone] | [phone] | | | | | | | Fax: | | | | | | | [phone] | +--------+--------+ + + + + Reason [...] + + | 03/10/ | Office | [facility] Division of | Carlos Arreola, | Chronic Abdominal | | 2005 | Visit | Gastroenterology/Hep | MD [address] | Pain; Iron | | | | atology [address] | Deficiency | | | | [address] | [place] [address] | | | | | Mailcode: [id number] | [phone] | | | | | [facility] | | | | | | [address] | | | | | | [place], [place] | | | | | | [address] | | | | | | [phone] | | | +--------+---------+ + + + [...] contact me, please do so by calling [phone] and asking for my boilermaker's assistant Cierra lAexis. I always do my best to return [...] other questions or issues. Carlos Arreola MD. 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 Lost 200lbs psot bypass surgery, has [...] [facility] | [address] [facility] | [place] [address] | | | PATHOLOGY | [address] | | | + + + + + | [facility] | [address] [facility] | [place] [address] | | | PATHOLOGY | [address] [...] [facility] DEPARTMENT OF | [address] [facility] | [place] [address] | | | PATHOLOGY | [address] | | | + + + + + | [facility] DEPARTMENT OF | [address] [facility] | [place] [address] | | | PATHOLOGY | [address] [...] [facility] | [facility] | [place] [address] | | | PATHOLOGY | [address] | | | + + + + + | [facility] DEPARTMENT OF | [address] [facility] | [place] [address] | | | PATHOLOGY | [address] [...] [facility] | [address] [facility] | [place] [address] | | | PATHOLOGY | [address] | | | + + + + + | [facility] | [address] [facility] | [place] [address] | | | PATHOLOGY | [address] [...] + + + + | [facility] | [address] | [place] [address] | | | LABORATORY | | | [...] + + + | [facility] | [address] | [place] [address] | | | LABORATORY | | | | + + + + + documented in this encounter Visit Diagnoses + + | Diagnosis | + + | Chronic abdominal pain Abdominal pain, unspecified site | + + | Iron deficiency Other disorders of iron metabolism | + + documented in this encounter"
--- OUTSIDE RECORDS SUMMARY | ~2020-02-29 | XMS | Encounter Summary ---
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 Diagnosis: Mccracken I: 1. (296.32) Major depressive disorder, recurrent, moderate. 2. (309.24) Adjustment disorder with anxiety. 3. (307.89) Chronic pain disorder associated with both psychological factors and a gene ral medical condition. Mccracken II: Deferred Mccracken III: abdominal pain, migraine headache, low back pain. Mccracken IV: low finances Mccracken V: GAF 55-60 Plan: Return in 3 months. Check mood, knee surgery, pacing, relaxation, activity, distraction. Continue cognitive/behavioral therapy. Discuss need for further sessions. Total time spent with patient was approximately 45 minutes. LUKASZ CHARLES PHD [facility] [address] [facility], [address] [place] [address] documented in this encount er Plan of Treatment + + +--------+ + + | Name | Type | Priori | Associated Diagnoses | Order Schedule | | | | ty | | | + + +--------+ + + | MD PSYCHOTHERPY, | Procedures | Routin | Major Depressive | Ordered: 12/04/2006 | | OFFICE (76-93) | | e | Disorder, Recurrent | | | | | | Episode, Moderate | | | | | | ([facility]) Spondylosis | | | | | | [...]
--- OUTSIDE RECORDS SUMMARY | ~2020-02-29 | XMS | Encounter Summary ---
Demographics + + + | Address | [address] | | | [place] [address] | + + + | Home Phone [...] Providers + +------+ + | Care Telephone Order Clerk Room Service Name | Role | Phone | [...] + + | 04/02/ | Refill | [facility] | Alanis, | Medication Refill | | 2019 | | MEDICINE [address] | MD Petrona | | | | | [place], | [address] [facility] | | | | | [place] [address] | [place] [address] | | | | | [phone] | | | | | | | [...] 05/17/ | Office | Internal Medicine | lAanis, | | | 2019 | Visit | | MD Petrona | | | | | | [address] | | | | | | [place] [address] | | | | | | [phone] | | | | | | | | +--------+---------+ + + + documented as of this encounter Visit Diagnoses Not on filedocumented in this encounter"
--- OUTSIDE RECORDS SUMMARY | ~2020-02-29 | XMS | Encounter Summary ---
Demographics + + + | Address | [address] | | | [place] [address] | + + + | Home Phone [...] Providers + +------+ + | Care Online Project Manager Name | Role | Phone | + +------+ + | Petrona Thapa | PCP | | | MD | | | + +------+ + Encounter Details +--------+ + + + + | Date | Type | Department | Care Team | Description | +--------+ + + + + | 07/09/ | Abstract | [facility] | Alanis, | | | 2018 | | MEDICINE [address] | MD Petrona | | | | | [place], | [address] [facility] | | | | | [place] [address] | [place] [address] | | | | | [phone] | | | | | | | [...] | | | | | [place] [address] | | | | | | [phone] | | | | | | | [...]
--- OUTSIDE RECORDS SUMMARY | ~2020-02-29 | XMS | Encounter Summary ---
Demographics + + + | Address | [address] | | | [place] [address] | + + + | Home Phone [...] Team Providers + +------+ + | Care Powered Bridge Specialist Name | Role | Phone | [...]
--- OUTSIDE RECORDS SUMMARY | ~2020-02-29 | XMS | Encounter Summary ---
Demographics + + + | Address | [address] | | | [place] [address] | + + + | Home Phone [...] Team Providers + +------+ + | Care Anime Designer Name | Role | Phone | + +------+ + | MariaE sther Cintron MD | PCP | | + +------+ + Encounter Details +--------+ + + + + | Date | Type | Department | Care Team | Description | +--------+ + + + + | 08/25/ | Abstract | Digestive Health | Patricia Banegas, | | | 2011 | | Center at [facility] [address] | POWERHOUSE MECHANIC HELPER [address] | | | | | [address] [place] | [facility] [address] | | | | | for Health and | [place], [place] | | | | | [place] [address] | [address] | | | | | [place], [place] | [phone] | | | | | [address] | | | | | | [phone] | | | +--------+ + + + [...]
--- OUTSIDE RECORDS SUMMARY | ~2020-02-29 | XMS | Encounter Summary ---
Demographics + + + | Address | [address] | | | [place] [address] | + + + | Home Phone [...] + +------+ + | Care Dining Room Host/Hostess Name | Role | Phone | [...] + | 01/21/ | Telephone | [facility] | Alanis, | Pain | | 2019 | | MEDICINE [address] | MD [place] | | | | | [place], | [address] | | | | | [place] [address] | [place] [address] | | | | | [phone] | [phone] | | | | | | | [...] She can go to the ER at [facility] elephone Encounter - Maggie Montoya LPN - [...] | | | | | [place] [address] | | | | | | [phone] | | | | | | | | +--------+---------+ + + + documented as of this encounter Visit Diagnoses Not on filedocumented in this encounter
--- OUTSIDE RECORDS SUMMARY | ~2020-02-29 | XMS | Encounter Summary ---
Demographics + + + | Address | [address] | | | [place] [address] | + + + | Home Phone [...] Providers + +------+ + | Care Director Global Strategic Publisher Sales Name | Role | Phone | [...] | | | [address] | [place] [address] | | | | | [address] | | | | | | [place], 2nd floor | | | | | | [place], [place] | | | | | | [address] | | | | | | [phone] | | | +--------+ + + + [...]
--- OUTSIDE RECORDS SUMMARY | ~2020-02-29 | XMS | Encounter Summary ---
Demographics + + + | Address | [address] | | | [place] [address] | + + + | Home Phone [...] Providers + +------+ + | Care Manager Emergency Name | Role | Phone | + [...] + + | 03/08/ | Telephone | [facility] | Emmy-Kamlesh, | Hospitalization | | 2017 | | MEDICINE [address] | MD [place] | | | | | [place], | [address] [facility] | | | | | [place] [address] | [place] [address] | | | | | [phone] | [phone] | | | | | | | [...] MD aware of hospitalization elephone Encounter - Adrinaa Cantor - 2:57 PM PDTPatient returned call to speak with the nurse. Patient stated she had a n emergent 13 hour surgery yesterday in [place] to remove bad adhesions around her intesti flor and is in a lot of pain but currently in the hospital. Patient would like a call back a t [phone]. elepho ne Encounter - Adriana Cantor - 03/08/2018 6:59 AM PDTPatient called asking to speak wi th the nurse. Patient wanted to let the office know she is in the hospital in [place] in the ICU as she had surgery yesterday for a bowel obstruction. Patient can be reached at . documented i n this encounter Plan of [...] | | | | | [place] [address] | | | | | | [phone] | | | | | | | | +--------+---------+ + + + documented as of this encounter Visit Diagnoses Not on filedocumented in this encounter"
--- OUTSIDE RECORDS SUMMARY | ~2020-02-29 | XMS | Encounter Summary ---
Demographics + + + | Address | [address] | | | [place] [address] | + + + | Home Phone [...] Providers + +------+ + | Care Licensed Physical Therapist Name | Role | Phone [...] Rd | | | | | | [place], [place] | | | | | | [address] | | | +--------+ + + + [...]
--- OUTSIDE RECORDS SUMMARY | ~2020-02-29 | XMS | Encounter Summary ---
Demographics + + + | Address | [address] | | | [place] [address] | + + + | Home Phone [...] | [address] [place], | [address] [facility] | | | | | [place] [address] | [place] [address] | | | | | [phone] | | | | | | | [...] | | | | | [place] [address] | | | | | | [phone] | | | | | | | [...]
--- OUTSIDE RECORDS SUMMARY | ~2020-02-29 | XMS | Encounter Summary ---
Demographics + + + | Address | [address] | | | [place] [address] | + + + | Home Phone [...] Team Providers + +------+ + | Care Finnish Rubber Name | Role | Phone | [...] | | Order | Loop Physician's | [place], [place] | | | | | [place], [facility] floor | [address] | | | | | [place], [place] | [phone] | | | | | [address] | | | | | | [phone] | | | +--------+ + + + [...]
--- OUTSIDE RECORDS SUMMARY | ~2020-02-29 | XMS | Encounter Summary ---
Demographics + + + | Address | [address] | | | [place] [address] | + + + | Home Phone [...] +------+ + | Care Oil Well Services Dispatcher Name | Role | Phone | [...] + + | 09/12/ | Telephone | [facility] | Miranda Lambert, | Medication | | 2009 | | Pain Center at | ANP | Adjustment (rec's | | | | [facility] | | for weaning due to | | | | [address] | | over use) | | | | [facility] | | | | | | and Healing, | | | | | | Building | | | | | | Floor [place], [place] | | | | | | [address] | | | | | | [phone] | | | +--------+ + + + [...] patient was last seen by her at [facility] 08/28/2008 Jyoti Brown documented in this encounter Plan of Treatment Not on filedocumented as of this encounter Visit Diagnoses Not on filedocumented in this encounter"
--- OUTSIDE RECORDS SUMMARY | ~2020-02-29 | XMS | Encounter Summary ---
Demographics + + + | Address | [address] | | | [place] [address] | + + + | Home Phone [...] | | | | [address] | [address] Phone: | | | | | | [place], | [phone] | | | | | | [place] | Fax: | | | | | | [address] | [phone] | | | | | | Phone: | | | | | | | [phone] | | | | | | | Fax: | | | | | | | [phone] | | +--------+--------+ + + + + Encounter Details +--------+---------+ + + + | Date | Type | Department | Care Team | Description | +--------+---------+ + + + | 11/28/ | Office | [facility] | Carlos Hsieh | NO SHOW (Primary Dx) | | 2014 | Visit | PHYSIATRY [address] | T[address] | | | | [address] | [address] [place] | | | | | [place] | [id number] | | | | | [address] | | | | | | [phone] | Joe, | | | | | | MARY Montero [address] | | | | | | [address] | | | | | | [place] [address] | | | | | | [phone] | | | | | | | [...] | | | | | | [address] [facility] [address] | | | | | | [place] [address] | | | | | | [phone] | | | | | | | | +--------+---------+ + + + documented as of this encounter Visit Diagnoses + + | Diagnosis | + + | No Show - Primary Code used for vists where the patient is not seen | + + documented in this encounter"
--- OUTSIDE RECORDS SUMMARY | ~2020-02-29 | XMS | Encounter Summary ---
Demographics + + + | Address | [address] | | | [place] [address] | + + + | Home Phone [...] | 07/30/ | Office | [facility] [address] | Clinic, | Progress Note | | 2006 | Visit-Trans | [facility] | Endocrinology | | | | kurt | Sacha | | | | | | [facility], | | | | | | 7th floor | | | | | | [place], [place] | | | | | | [address] | | | | | | [phone] | | | +--------+ + + + [...] as of this encounter Progress Notes Interface, Hr Analyst In - 09/16/2006 7:22 AM PDT [id number] GEOVANNI SKELTON Molly [id number] Clinic Date: 07/30/2006 Clinic: Endocrinology Subjective: Belinda [...] year. Beto Meeks M.D. PD / HS [id number] / [id number] / [id number] / [id number] cc: Joanna Arshad M.D. Jonathan Hitzman, M.D. [address] [facility] [place] [address] Electronically signed by Beto Meeks 09-15-2006 11:40:17 PM documented in this encounter Plan of Treatment Not on filedocumented as of this encounter Visit Diagnoses Not on filedocumented in this encounter"
--- OUTSIDE RECORDS SUMMARY | ~2020-02-29 | XMS | Encounter Summary ---
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 Expectations for this visit [...] hypothyroidism Bone spur on right heel - cloth handler last week, insurance [place] for [place] Current [...] bid 2. Fentanyl patch 25mcg/hr Q72hr 3. [place] 10/325 NTE 4 per day 4 Continue [...] weeks or sooner if needed. DELFINA MOLINA [facility] Mail code CH 4P [facility] and [facility] [address] [facility] [address] avannah Nolascody - 11/11/2006 9:29 AM [...]
--- OUTSIDE RECORDS SUMMARY | ~2020-02-29 | XMS | Encounter Summary ---
Demographics + + + | Address | [address] | | | [place] [address] | + + + | Home Phone [...] + +------+ + | Care Hydraulic Jack Adjuster Name | Role | Phone | [...] | Specialty | Physical | Diagnoses | [place], | [facility] | | | Services | Therapy | Benign | Ulysses Lau MD | HOSPITAL | | | Required | | paroxysmal | [address] | PHYSICAL | | | | | positional | [address] | THERAPY [address] | | | | | vertigo, | [place], | [place] | | | | | unspecified | [place] [address] | [place], [place] | | | | | laterality | Phone: | [address] | | | | | Dysfunction | [phone] | Phone: | | | | | of left | Fax: | [phone] | | | | | eustachian | [phone] | Fax: | | | | | tube | | [phone] | +--------+ + + + + + Encounter Details +--------+ + + + + | Date | Type | Department | Care Team | Description | +--------+ + + + + | 01/04/ | Orders Only | [facility] [place] | Ulysses Genao MD | Benign paroxysmal | | 2018 | | OTOLARYNGOLOGY [address] | [address] | positional vertigo, | | | | [address] | [address] [place] | unspecified | | | | [place], [place] | [address] | laterality (Primary | | | | [address] | | Dx); Dysfunction of | | | | [phone] | | left eustachian tube | +--------+ [...] | | | | | [place] [address] | | | | | | [phone] | | | | | | | [...]
--- OUTSIDE RECORDS SUMMARY | ~2020-02-29 | XMS | Encounter Summary ---
Demographics + + + | Address | [address] | | | [place] [address] | + + + | Home Phone [...] Providers + +------+ + | Care Dog Or Horse Racing Official Name | Role | Phone | [...] + + | 09/04/ | Telephone | [facility] | Alanis, | Appointment Question | 2019 | | MEDICINE [address] | MD Petrona | | | | | [place], | [address] | | | | | [place] [address] | [place] [address] | | | | | [phone] | | | | | | | [...] | | | | | [place] [address] | | | | | | [phone] | | | | | | | | +--------+---------+ + + + documented as of this encounter Visit Diagnoses Not on filedocumented in this encounter"
--- OUTSIDE RECORDS SUMMARY | ~2020-02-29 | XMS | Encounter Summary ---
[...] Team Providers + +------+ + | Care Observer Gravity Prospecting Name | Role | Phone | + [...]
--- OUTSIDE RECORDS SUMMARY | ~2020-02-29 | XMS | Encounter Summary ---
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 Diagnosis: Follansbee I: 1. (296.32) Major depressive disorder, recurrent, moderate. 2. (309.24) Adjustment disorder with anxiety. 3. (307.89) Chronic pain disorder associated with both psychological factors and a gene ral medical condition. Follansbee II: Deferred Follansbee III: abdominal pain, migraine headache, low back pain. Follansbee IV: low finances Follansbee V: GAF 55-60 Plan: Return with next medical follow-up appointment. Check mood, knee surgery, relaxation, acti vity, distraction. Continue cognitive/behavioral therapy. Total time spent with patient was approximately 45 minutes. LUKASZ CHARLES PHD [facility] [address] [place] [address] [facility], 4th [place] [address] documented in this encount er Plan of Treatment + + +--------+ + + | Name | Type | Priori | Associated Diagnoses | Order Schedule | | | | ty | | | + + +--------+ + + | [facility] PSYCHOTHERPY, | Procedures | Routin | Major Depressive | Ordered: 05/28/2007 | | OFFICE (03-56) | | e | Disorder, Recurrent | [...]
--- OUTSIDE RECORDS SUMMARY | ~2020-02-29 | XMS | Encounter Summary ---
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 She deneis sweating however has [facility] pool program referral of her orthopedist physician. She reports going to [employer] pool three times a week for the [...] the past week of Fentanyl patch and Vallejo. Trileptal he lps with right leg pain and sleep. "been sleeping great". Expectations for this visit include : discussing the sticking problems with the fentanyl [facility] and her insurance not being willing prescribe Vallejo. There have been no other change in [...] an d her insurance stopped coverage of Vallejo. I believe doing pool therapy three times [...] might be d iverting or using her Vallejo? Until I know more I will not be prescribing a breakthrough sina n medication but am willing to prescribe early for her fentanyl. I have asked Belinda to picker tender helper and be responsible for her own medication picker tender helper. I discussed with Tasha Nolasco CMA the issue of Insurance PA for Vallejo this was in progress as of the time the patient was here. At the time I completed this note we had word that Ins urance would not approve coverage. I will discuss this with Belinda once I know her story o n where the dispensed #70 Vallejo is. [ Tasha reported calling [employer] who reported: Belinda's s on picking up [...] at the [facility]. DELFINA MOLINA [facility] Mail code CH 4P [facility] [address] [place] [address] asha Nolasco - 12/04/2006 7:43 AM [...]
--- OUTSIDE RECORDS SUMMARY | ~2020-02-29 | XMS | Encounter Summary ---
Demographics + + + | Address | [address] | | | [place] [address] | + + + | Home Phone [...] Team Providers + +------+ + | Care Pancake Professional Name | Role | Phone | [...] as of this encounter Progress Notes Interface, Investment Associate In - 07/09/2005 2:07 AM PST [id number] GEOVANNI Barnes Clinic Date: 07/03/2005 Clinic: Ms. [...] this operation. Chris Padgett M.D. ROSA / [id number] / [id number] / [id number] / [id number] Electronically signed by Chris Padgett 07-08-2005 01:45:20 PM documented i n this encounter Plan of Treatment Not on filedocumented as of this encounter Visit Diagnoses Not on filedocumented in this encounter"
--- OUTSIDE RECORDS SUMMARY | ~2020-02-29 | XMS | Encounter Summary ---
Demographics + + + | Address | [address] | | | [place] [address] | + + + | Home Phone [...] Providers + +------+ + | Care Traffic Control Signaler Name | Role | Phone | + [...] + + | 03/03/ | Office | [facility] | Delfina Molina, | LBP (Low Back Pain); | | 2007 | Visit | Pain Center at | ANP | Spondylosis with | | | | [facility] | | Myelopathy, Lumbar | | | | [address] | | Region; Bilateral | | | | [place] [facility] | | Leg Pain; | | | | and Healing, | | Radiculitis, | | | | Building | | Lumbosacral; | | | | Floor [place], [place] | | Encounter for | | | | [address] | | Long-Term (Current) | | | | [phone] | | Use of Opioids; Hx | [...] Belinda Meehan is a 48 y.o. female [facility] Comprehensive Pain [...] be ing reviewed by Dr Constantino SHEEHAN mechanical project engineer. MRI of the brain and it was [...] Ogden PhD TPI every 5-6 months with [facility] Rheumatology Hilda Saenz Review of [...] history, fam bijan history, or social history. [facility] Encorinology [facility] ACNP ThuNovember 12, 2007 Assessment: 1) [...] continue to discuss with her options at [facility] with, hopefully, coordinatio n of [...] 300 mg) by oral route once daily qsavjzcikn-gjucejzalftuy-vxffmdwg (FIORICET) 50-325-40 mg Oral Tablet take 2 [...] DISK BULGE. Transcribed By: Armaan Mata : [id number] : 1442 Approved By: Radiologist: Physical Examination: [...] Mail code CH 4P [facility] [address] [facility] [address] Ailyn Fotser - 03/03/20 08 10:24 AM PDTCMA History: [...]
--- OUTSIDE RECORDS SUMMARY | ~2020-02-29 | XMS | Encounter Summary ---
Demographics + + + | Address | [address] | | | [place] [address] | + + + | Home Phone [...] Providers + +------+ + | Care Facility Administrator Name | Role | Phone [...] + | 10/16/ | Telephone | [facility] | Alanis, | Wrist Pain | | 2017 | | MEDICINE [address] | MD Petrona | | | | | [place], | [address] [facility] | | | | | [place] [address] | [place] [address] | | | | | [phone] | [phone] | | | | | | | [...] order an xray and send it to [facility] if possible. Please advise. [phone] signed by Malissa Redd at 10/16/2017 8:45 [...] | | | | | [place] [address] | | | | | | [phone] | | | | | | | | +--------+---------+ + + + documented as of this encounter Visit Diagnoses Not on filedocumented in this encounter"
--- OUTSIDE RECORDS SUMMARY | ~2020-02-29 | XMS | Encounter Summary ---
Demographics + + + | Address | [address] | | | [place] [address] | + + + | Home Phone [...] Providers + +------+ + | Care Automotive Power Electronics Engineer Name | Role | [...] + | 03/29/ | Telephone | [facility] | Alanis, | Medication Prior | | 2017 | | MEDICINE [address] | MD Petrona | Authorization | | | | [place], | [address] | (Gabapentin ) | | | | [place] [address] | [place] [address] | | | | | [phone] | [phone] | | | | | | | [...] Notes Telephone Encounter - Mayda Montoya - 03/29/2018 9:32 AM PDTReceived prior auth request aren glover Gabapentin from [facility]. Script from pharmacy for requested 360 capsules was dated 2017. Medication has since been updated in January for 270 capsules that don't require author ization. Sent message to nurse asking to call pharmacy and give verbal over the phone with u pdated prescription. Please see referral#[id number] on details. Closed encounter today. Electro nically [...] | | | | | [place] [address] | | | | | | [phone] | | | | | | | | +--------+---------+ + + + documented as of this encounter Visit Diagnoses Not on filedocumented in this encounter"
--- OUTSIDE RECORDS SUMMARY | ~2020-02-29 | XMS | Encounter Summary ---
Demographics + + + | Address | [address] | | | [place] [address] | + + + | Home Phone [...] Team Providers + +------+ + | Care Inseam Trimming Machine Operator Name | Role | Phone [...] | | | | L[address] Physician's | [place], [place] | | | | | [address] | [address] | | | | | [place], [place] | [phone] | | | | | [address] | | | | | | [phone] | | | +--------+ + + + [...] MEDICAL CENTER DEPARTMENT OF | [address] | [place] [address] | | | PATHOLOGY | [address] | | | + + + + + | [facility] DEPARTMENT OF | [address] [facility] | [place] [address] | | | PATHOLOGY | [address] [...] DEPARTMENT OF | [address] | [place] [address] | | | PATHOLOGY | [address] | | | + + + + + | [facility] DEPARTMENT | [address] | [place] [address] | | | PATHOLOGY | [address] [...] DEPARTMENT OF | [address] | [place] [address] | | | PATHOLOGY | [address] | | | + + + + + | [facility] DEPARTMENT OF | [address] | [place] [address] | | | PATHOLOGY | [address] [...] | | + +---------+ + + | [facility] DEPARTMENT OF | | [...] [facility] DEPARTMENT OF | [address] [facility] | [place] [address] | | | PATHOLOGY | [address] | | | + + + + + | [place] DEPARTMENT OF | [address] [facility] | [place] [address] | | | PATHOLOGY | [address] [...] [facility] DEPARTMENT OF | [address] [facility] | [place] [address] | | | PATHOLOGY | [address] | | | + + + + + | [facility] DEPARTMENT OF | [address] | [place] [address] | | | PATHOLOGY | [address] | | | + + + + + documented in this encounter Visit Diagnoses Not on filedocumented in this encounter"
--- OUTSIDE RECORDS SUMMARY | ~2020-02-29 | XMS | Encounter Summary ---
Demographics + + + | Address | [address] | | | [place] [address] | + + + | Home Phone [...] | | Center at [facility] [address] | [place] [address] | | | | | [address] [place] | [facility] [address] | | | | | for Health and | [place], [place] | | | | | [place] [address] | [address] | | | | | [place], [place] | [phone] | | | | | [address] | | | | | | [phone] | | | +--------+ + + + [...]
--- OUTSIDE RECORDS SUMMARY | ~2020-02-29 | XMS | Encounter Summary ---
Demographics + + + | Address | [address] | | | [place] [address] | + + + | Home Phone [...] Providers + +------+ + | Care Water Trainer Name | Role | Phone | [...] of this encounter Progress Notes Interface, Clinical Sociologist In - 12/07/2005 3:[address] [address] or January 31, 2003 Pedrito Gutierrez M.D. [address] [place] [address] RE: BELINDA MEEHAN MR #: [id number] Dear Dr. Gutierrez: I had the pleasure [...] She had surgery 5 days ago in [place] on her right hand and wrist, for [...] time to help minimize her travel to [place]. In the meantime, please feel free to contact me if you have other questions, concerns, or suggestions regarding her condition. Sincerely, Issac Meeks M.D. data entry clerk Division of Endocrinology, Diabetes, and Clinical Nutrition, Director of Metabolic Disorders Clinic PBD / [id number] / [id number] / [id number] / Tdocumented in this encounter Plan of Treatment Not on filedocumented as of this encounter Visit Diagnoses Not on filedocumented in this encounter"
--- OUTSIDE RECORDS SUMMARY | ~2020-02-29 | XMS | Encounter Summary ---
Demographics + + + | Address | [address] | | | [place] [address] | + + + | Home Phone [...] Providers + +------+ + | Care Deputy Chief Executive Name | Role | Phone | [...] Medication Refill | | 2017 | | [facility] [address] | MD Petrona | | | | | [place], | [address] [place] | | | | | [place] [address] | [place] [address] | | | | | [phone] | | | | | | | [...] hours PRN Quantity: unknown Pharmacy: angie becerra Call/Mail/Nurses Supervisor/Fax: fax Date of Last Refill: unknown Date [...] | | | | | [place] [address] | | | | | | [phone] | | | | | | | | +--------+---------+ + + + documented as of this encounter Visit Diagnoses Not on filedocumented in this encounter"
--- OUTSIDE RECORDS SUMMARY | ~2020-02-29 | XMS | Encounter Summary ---
Demographics + + + | Address | [address] | | | [place] [address] | + + + | Home Phone [...] Providers + +------+ + | Care Supervisor Waterproofing Name | Role | Phone | + [...] as of this encounter Progress Notes Interface, Lard Bleacher In - 01/11/2005 5:17 PM [facility] [address] [place], [place] [address] or June 26, 2003 Pedrito Gutierrez M.D. [address] [place] [address] RE: BELINDA MEEHAN MR #: [id number] Dear Dr. Gutierrez: I had the pleasure [...] Sincerely, Sesar Nash M.D. NURIA / SHARIF [id number] / [id number] / [id number] / [id number] cc: Kelley Alegre [address] [place] [address] FAX: [phone] signed by Interface, Lard Bleacher In at 01/11/2005 5:17 PM PDTdocumented in this encounter Plan of Treatment Not on filedocumented as of this encounter Visit Diagnoses Not on filedocumented in this encounter"
--- OUTSIDE RECORDS SUMMARY | ~2020-02-29 | XMS | Encounter Summary ---
Demographics + + + | Address | [address] | | | [place] [address] | + + + | Home Phone [...] | | 2005 | | Center at [facility] [address] | [address] [facility] | | | | | [facility] | [facility] | | | | | for [facility] and | [place] [address] | | | | | [facility], [facility] 2 | [phone] | | | | | [place], [place] | | | | | | [address] | | | | | | [phone] | | | +--------+ + + + [...] Notes Telephone Encounter - Carlos Arreola - 05/22/2006 10:45 AM PSTPC to pt. Results of capsu le endoscopy given. F/u plain film of abdomen ordered via PCP does not show retained capsule per patient. She is to see Pain clinic and Dr. Padgett in the next week. She may need IV iron via PCP if intolerant or ineffective oral iron replacement. We have little more to offer from GI clinic, informed patient. She seems reasonably satisfied at this point. documented in this encounter Plan of Treatment Not on filedocumented as of this encounter Visit Diagnoses Not on filedocumented in this encounter"
--- OUTSIDE RECORDS SUMMARY | ~2020-02-29 | XMS | Encounter Summary ---
Demographics + + + | Address | [address] | | | [place] [address] | + + + | Home Phone [...] Team Providers + +------+ + | Care Biometrics Technician Name | Role | Phone | [...] | 2004 | Registratio | [facility] | [address] | | | | n | [place] Mailcode: [id number] | [place], [place] | | | | | [place], [place] | [address] | | | | | [address] | [phone] | | | | | [phone] | | | +--------+ + + + [...] + + + | [facility] | [address] | [place] [address] | | | LABORATORY | | | [...] [facility] | [address] [facility] | [place] [address] | | | PATHOLOGY | [address] | | | + + + + + | [facility] DEPARTMENT OF | [facility] | [place] [address] | | | PATHOLOGY | [address] [...] DEPARTMENT OF | [address] | [place] [address] | | | PATHOLOGY | [address] | | | + + + + + | [place] DEPARTMENT OF | [address] | [place] [address] | | | PATHOLOGY | [address] [...] | [facility] | [facility] [address] | [place] [address] | | | PATHOLOGY | [address] | | | + + + + + | [facility] DEPARTMENT OF | [facility] [address] | [place] [address] | | | PATHOLOGY | [address] | | | + + + + + documented in this encounter Visit Diagnoses Not on filedocumented in this encounter"
--- OUTSIDE RECORDS SUMMARY | ~2020-02-29 | XMS | Encounter Summary ---
Demographics + + + | Address | [address] | | | [place] [address] | + + + | Home Phone [...] Team Providers + +------+ + | Care Valve Maker Name | Role | Phone | [...] | | | | | hemorrhoid | [place], [place] | [address] [facility] | | | | | Rectal pain | [address] | [facility] | | | | | Procedures | | [address] [place], | | | | | CONSULT TO | | [place] | | | | | COLOR[place]AL | | [address] | | | | | SURGERY | | Phone: | | | | | | | [phone] | | | | | | | Fax: | | | | | | | [phone] | +--------+--------+ + + + + Encounter Details +--------+ + + + + | Date | Type | Department | Care Team | Description | +--------+ + + + + | 08/10/ | Sustain Engineer | [facility] | Nuris Cardenas, ANP | Internal Hemorrhoid; | | 2008 | | [place] [address] [address] | | Rectal Pain | | | | [address] | | | | | | Mailcode: [id number] | | | | | | [facility] | | | | | | [place], [place] | | | | | | [address] | | | | | | [phone] | | | +--------+ + + + [...]
--- OUTSIDE RECORDS SUMMARY | ~2020-02-29 | XMS | Encounter Summary ---
Demographics + + + | Address | [address] | | | [place] [address] | + + + | Home Phone [...] Providers + +------+ + | Care House Repairer Name | Role | Phone | [...] as of this encounter Progress Notes Interface, Ice Cream Man In - 01/12/2005 6:20 AM PDT Jennifer Belinda Barnes [id number] [facility] REC NUMBER: [id number] NAME : Belinda Meehan DATE : 1960 DISCHARGE ASSESSMENT AND CASE MANAGEMENT NOTES Chart Reviewed: 2004-12-04 15:29:00 Public Aid Eligibility Assistant: Lou Jordan RN Preadmission living situation: family If facilty, name: Additional needs assessment: Case Management Initial Assessment and Ongoing Notes: 12/04/2004 15:29 Rec'd referral from IR everardo. Pt donavan li for panniculectomy per Dr. Chris Padgett 12/06/2004. ----- ------- Living Situation: Pt lives w/ her son, Sree in [place], [place]. Pt also has a caregiver from [employer] [facility] come in for 8-9 hours per day when her son is not home. Transportation: Pat w/ [facility] will take pt home (H) (C). Home Health: Pt has an RN from [facility] visit once a month for an assesment (H) or (C). Medical Equipment: Pt states that she has forearm crutches, a shower chair, and is working on getting hand bars installed into her shower. ---- Co-Morbidities: Panniculitis, s/p gastric bypass, arthritis, asthma, NIDDM, GERD, HTN, and sleep apnea. ------ Providers: PCP is Dr. Pedrito Gutierrez in [facility] and Dr. William Meeks [facility] metabolic disorder clinic. Narrative: Pt asked if [...] or concerns, contact information given. Jean NUR [id number] documented i n this encounter Plan of Treatment Not on filedocumented as of this encounter Visit Diagnoses Not on filedocumented in this encounter"
--- OUTSIDE RECORDS SUMMARY | ~2020-02-29 | XMS | Encounter Summary ---
Demographics + + + | Address | [address] | | | [place] [address] | + + + | Home Phone [...] | | | | | | MS Elisbaet | | | | | Vertigo/Medi | | CCC-A [address] | | | | | care/Emmy | | [address] | | | | | /Self | | [address] [place] | | | | | Procedures | | [place] | | | | | OFFICE VISIT | | [address] Phone: | | | | | REGULAR | | [phone] | | | | | | | Fax: | | | | | | | [phone] | +--------+--------+ + + + + Encounter Details +--------+---------+ + + + | Date | Type | Department | Care Team | Description | +--------+---------+ + + + | 12/30/ | Office | [facility] | Elisabet [place]son, [place] | Subjective tinnitus | | 2018 | Visit | AUDIOLOGY AND | [facility] [address] | of left ear (Primary | | | | [facility] | [address] | Dx) | | | | [address] | [place] [address] | | | | | [address] [facility] | [phone] | | | | | [place] [address] | | | | | | [phone] | | | +--------+---------+ + + + [...] | | | | | [place] [address] | | | | | | [phone] | | | | | | | [...]
--- OUTSIDE RECORDS SUMMARY | ~2020-02-29 | XMS | Encounter Summary ---
Demographics + + + | Address | [address] | | | [place] [address] | + + + | Home Phone [...] Team Providers + +------+ + | Care Levi Maker Name | Role | Phone | [...] | | | [facility] | [place], [place] | and counseling | | | | [address] | [address] | | | | | [address] | [phone] | | | | | [facility] | | | | | | Physician's | | | | | | [facility] [place], | | | | | | [place] [address] | | | | | | [phone] | | | +--------+ + + + [...]
--- OUTSIDE RECORDS SUMMARY | ~2020-02-29 | XMS | Encounter Summary ---
Demographics + + + | Address | [address] | | | [place] [address] | + + + | Home Phone [...] Team Providers + +------+ + | Care Academy Director Name | Role | Phone | [...] Pavilion | | | | | | [place], [place] | | | | | | [address] | | | | | | [phone] | | | +--------+ + + + [...] able to ween down?: yes Can you grain picker the script if need to or should it be mailed?: Pick-up/mail MAIL Pharmacy: Pharmacy Preferences: [facility] [facility] Milly Horton [address] [facility] [place] [phone] documented in this encounter Plan of Treatment Not on filedocumented as of this encounter Visit Diagnoses + + | Diagnosis | + + | 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
--- OUTSIDE RECORDS SUMMARY | ~2020-02-29 | XMS | Encounter Summary ---
Demographics + + + | Address | [address] | | | [place] [address] | + + + | Home Phone [...] Providers + +------+ + | Care Assembly Associate Name | Role | Phone | [...] | | | | Clinical Nutrition | [place], [place] | | | | | [address] | [address] | | | | | Loop Mailcode: OPC5 | [phone] | | | | | Outpatient Clinic | | | | | | [facility] | | | | | | [place] [address] | | | | | | [phone] | | | +--------+ + + + [...] [facility] | [address] | [place], [place] | | | [facility] | | [address] | | + + + + + [...] + + + | [facility] | [address] | [place] [address] | | | LABORATORY | | | [...] DEPARTMENT OF | [address] | [place] [address] | | | PATHOLOGY | [address] | | | + + + + + | [facility] DEPARTMENT | [address] | [place] [address] | | | PATHOLOGY | [address] [...] [facility] | [address] | [place] [address] | | | PATHOLOGY | [address] | | | + + + + + | [facility] | [address] | [place] [address] | | | PATHOLOGY | [address] | | | + + + + + documented in this encounter Visit Diagnoses Not on filedocumented in this encounter"
--- OUTSIDE RECORDS SUMMARY | ~2020-02-29 | XMS | Encounter Summary ---
Demographics + + + | Address | [address] | | | [place] [address] | + + + | Home Phone [...] Providers + +------+ + | Care Lab Nurse Name | Role | Phone | [...] | 08/16/ | Refill | [facility] | Alanis, | Medication Refill | | 2019 | | MEDICINE [address] | MD [place] | | | | | [place], | [address] [place] | | | | | [place] [address] | [place] [address] | | | | | [phone] | [phone] | | | | | | | [...] medication remaining: none Quantity: ? Pharmacy: [facility] Call/Mail/Master Pilot/Fax: fax Date of Last Refill:unknown Date of [...] | | | | | [place] [address] | | | | | | [phone] | | | | | | | | +--------+---------+ + + + documented as of this encounter Visit Diagnoses Not on filedocumented in this encounter"
--- OUTSIDE RECORDS SUMMARY | ~2020-02-29 | XMS | Encounter Summary ---
Demographics + + + | Address | [address] | | | [place] [address] | + + + | Home Phone [...] Providers + +------+ + | Care Chief Executive Officer Name | Role | [...] + | 08/14/ | Office | [facility] | Alanis, | Situational insomnia | | 2020 | Visit | MEDICINE [address] | MD John | (Primary Dx); | | | | [place] [facility], | [address] [facility] | Situational | | | | [place] [address] | [place] [address] | depression | | | | [phone] | [phone] | | | | | | | [...] Total Score 10 (08/15/19934) (Printable questionnaires in Greek ) Interpretation of Total Score: 1-4 = [...] COPD (chronic obstructive pulmonary disease) ([facility]) Depression Diarrhea Dumping syndrome Fall at home Fatigue fracture of vertebra Fibromyalgia Full dentures GERD (gastroesophageal reflux disease) Glaucoma Hyperparathyroidism ([facility]) Hypothyroidism IBS (irritable bowel syndrome) Idiopathic scoliosis [...] Procedure: COLONOSCOPY; Surgeon: Luther Brito MD; Location: [facility] MEDICAL PROCEDURE UNIT DILATION AND CURETTAGE OF UTERUS ELBOW SURGERY FINGER TRIGGER RELEASE 2002 FINGER TRIGGER RELEASE 2009 GASTRIC BYPASS SURGERY 2004 HYSTERECTOMY 05/14/1980 JOINT REPLACEMENT Bilateral 2007 2007 KNEE ARTHROSCOPY 2005 LAPAROSCOPY 01/27/2015 LAPAROTOMY 2008 ROTATOR CUFF REPAIR 2005 SPINE SURGERY TONSILLECTOMY 1964 UPPER GASTROINTESTINAL ENDOSCOPY N/A 12/18/2017 Procedure: EGD; Surgeon: Luther Brito MD; Location: [facility] MEDICAL PROCEDURE UNIT CURRENT MEDICATIONS Current [...] Allergen Reactions Ensure Diarrhea Food Diarrhea Lactose Gsjlulbiyl-Glt-Zugh-Codeine Other (See Comments) Balance problems Codeine Sulfate Nausea Only Food Allergy Formula Diarrhea Ensure Levofloxacin Hives, Itching and Rash Butalbital Ropinirole Amitriptyline Hcl Other (See Comments) Confused and questionable for seizures Xzfialxkkr-Iapb-Ykulxiqf Rash duplicate Mkyricbhvj-Ikib-Gelnbkgx Hives and Rash Cephalexin Hives Ciprofloxacin Hives and Rash Clarithromycin Hives and Rash Clindamycin Hcl Hives and Rash Doxycycline Rash Duloxetine Other (See Comments) Migraines and nausea Ketorolac Hives Levofloxacin Hives and Rash Morphine Swelling Penicillins Hives and Rash Ropinirole Hcl Hives Sulfamethoxazole-Trimethoprim Hives and Rash Tramadol Hcl Nausea Only FOLLOW-UP No follow-ups on file. Notes: 1. Parts of this documentwere created using [employer] speech recognition software. As a resu lt, [...] | | | | | [place] [address] | | | | | | [phone] | | | | | | | [...]
--- OUTSIDE RECORDS SUMMARY | ~2020-02-29 | XMS | Encounter Summary ---
Demographics + + + | Address | [address] | | | [place] [address] | + + + | Home Phone [...] Providers + +------+ + | Care Tube Fitter Name | Role | Phone | [...] + + | 07/27/ | Telephone | [facility] | Alanis, | Other | | 2019 | | MEDICINE [address] | MD [place] | | | | | [place], | [address] [facility] | | | | | [place] [address] | [place] [address] | | | | | [phone] | [phone] | | | | | | | [...] incontinence supplies from a new company called [employer]? Instructed tristen de to call the company [...] | | | | | [place] [address] | | | | | | [phone] | | | | | | | | +--------+---------+ + + + documented as of this encounter Visit Diagnoses Not on filedocumented in this encounter"
--- OUTSIDE RECORDS SUMMARY | ~2020-02-29 | XMS | Encounter Summary ---
Demographics + + + | Address | [address] | | | [place] [address] | + + + | Home Phone [...] + +------+ + | Care Power Transformer Repair Supervisor Name | Role | Phone [...] | [facility] [address] [place], | Region; Neck Pain; | | | | [address] [facility] | [place] [address] | Herniated Lumbar | | | | [facility], | | Intervertebral Disc | | | | | | L4-5; Fibromyalgia | | | | Floor [place], [place] | | syndrome 729.1 | | | | [address] | | | | | | [phone] | | | +--------+---------+ + + + [...] Date: August 12, 2006 Patient: Belinda Meehan, [id number], 1960 I agree with the proposed Physical Therapy Treatment Plan. Provider: DELFINA MOLINA ANP Nathalia Keyes - 007 12:04 PM PST Physical Therapy Medicare Progress Note Date: 08/12/2006 Bleinda Meehan [id number]. 1960 Start of Care: 06/23/2006 Referring Provider: [...] MA THERAPEUTIC | Procedures | Routin | Spondylosis [...] MA THERAPEUTIC | Procedures | Routin | Spondylosis [...]
--- OUTSIDE RECORDS SUMMARY | ~2020-02-29 | XMS | Encounter Summary ---
Demographics + + + | Address | [address] | | | [place] [address] | + + + | Home Phone [...] + +------+ + | Care Sales Service Technician Name | Role | Phone [...] + + | 11/15/ | Office | [facility] | Alanis, | Arthralgia of both | | 2019 | Visit | MEDICINE [address] | MD [place] | hands (Primary Dx); | | | | [address]VE [place], | [address] [facility] | Acquired | | | | [place] [address] | [place] [address] | hypothyroidism; | | | | [phone] | [phone] | Migraine without | | | | [...] Procedure: COLONOSCOPY; Surgeon: Luther Brito MD; [facility] DILATION AND CURETTAGE OF UTERUS ELBOW SURGERY FINGER TRIGGER RELEASE 2003 FINGER TRIGGER RELEASE 2010 GASTRIC BYPASS SURGERY 2004 HYSTERECTOMY 05/14/1980 JOINT REPLACEMENT Bilateral 2007 2008 KNEE ARTHROSCOPY 2005 LAPAROSCOPY 01/27/2015 LAPAROTOMY 2008 ROTATOR CUFF REPAIR 2005 SPINE SURGERY TONSILLECTOMY 1964 UPPER GASTROINTESTINAL ENDOSCOPY N/A 12/18/2017 Procedure: EGD; Surgeon: Luther Brito MD; [facility] CURRENT MEDICATIONS [...] (See Comments) Confused and questionable for seizures Nmkqfjspkg-Tkpk-Sotfetxf Hives and Rash Cephalexin Hives Ciprofloxacin Hives [...] Note: Parts of this documentwere created using [employer] speech recognition software. As a r esult, [...] | | | | | [place] [address] | | | | | | [phone] | | | | | | | [...] + | [address] | [address] | [place] | [phone] | | [facility] | | [address] | | | - LABORATORY | | [...] | | | | | with both FL-3 and | | | | | | [...] | REFERENCE LAB | | [place] [id number] Control Panel Assembler: Manish Chin MD, Phone: | [facility] | | [phone] Performed at: [address] - [address] | | | [place], [place] [address] Control Panel Assembler: Jeannine Mendoza MD, | | | Phone: [phone] | | + + + + + + + + | Performing | Address | City/State/Zipcode | Phone Number | | Organization | | | | + + + + + | REFERENCE LAB | [address] | [place], [place] | [phone] | | [facility] | [facility] | [address] | | + + + + + [...] + | Performed at: 01 - [facility] [place] [address], | REFERENCE LAB | | [place], [place] [id number] Control Panel Assembler: Bandar Gan MD, Phone: | [facility] | | [phone] | | + + + + + + + + | Performing | Address | City/State/Zipcode | Phone Number | | Organization | | | | + + + + + | REFERENCE LAB | [address] | [place], [place] | [phone] | | [facility] | [place] | [address] | | + + + + + [...] [address] | [place] | [phone] | | [facility] | | [address] | | | - LABORATORY | | [...] + | [address] | [address] | [place] | [phone] | | [facility] | | [address] | | | [...] + | [address] | [address] | [place] | [phone] | | [facility] | | [address] | | | - LABORATORY | | [...] mL/min/1.73m2 | [facility] | | | Indonesian | RATE,ESTIMATED | | MEDICAL | | | | mL/min/1.62a1Rymm than | | CENTER - | | [...] [address] | [place] | [phone] | | [facility] | | [address] | | | - LABORATORY | | [...]
--- OUTSIDE RECORDS SUMMARY | ~2020-02-29 | XMS | Encounter Summary ---
Demographics + + + | Address | [address] | | | [place] [address] | + + + | Home Phone [...] Providers + +------+ + | Care Horse Exerciser Name | Role | Phone | + [...] + + | 10/07/ | Telephone | [facility] | Alanis, | Hip Pain | | 2017 | | MEDICINE [address] | MD [place] | | | | | [place], | [address] [facility] | | | | | [place] [address] | [place] [address] | | | | | [phone] | [phone] | | | | | | | [...] PDTPatient lives approx an h our from [facility]. Instructed to go to an [...] | | | | | [place] [address] | | | | | | [phone] | | | | | | | | +--------+---------+ + + + documented as of this encounter Visit Diagnoses Not on filedocumented in this encounter"
--- OUTSIDE RECORDS SUMMARY | ~2020-02-29 | XMS | Encounter Summary ---
Demographics + + + | Address | [address] | | | [place] [address] | + + + | Home Phone [...] Team Providers + +------+ + | Care Is Technician Name | Role | Phone | [...] as of this encounter Progress Notes Interface, Conductor Orchestra In - 09/13/2005 2:06 AM PST [id number] GEOVANNI Barnes Clinic Date: 07/03/2005 Clinic: Endocrinology [...] which are pending through the laboratory in [place]. Allergies: PENICILLIN, CODEINE, KEFLEX, SULFA, CIPRO, AND [...] which were done several days ago in [place]. Beto Meeks M.D. PD / HS [id number] / [id number] / [id number] / [id number] cc: Chris Padgett M.D. [facility] Electronically signed by Beto Meeks 09-12-2005 02:23:07 AM documented i n this encounter Plan of Treatment Not on filedocumented as of this encounter Visit Diagnoses Not on filedocumented in this encounter"
--- OUTSIDE RECORDS SUMMARY | ~2020-02-29 | XMS | Encounter Summary ---
Demographics + + + | Address | [address] | | | [place] [address] | + + + | Home Phone [...] Team Providers + +------+ + | Care Riding Silks Custodian Name | Role | Phone | [...] | Management | Chronic | Taqueria Strong, PROPERTY MANAGEMENT COORDINATOR | Rosi Armijo, ANP | | | | | neck pain | [address] | [address] | | | | | Low back | [place] | [address] | | | | | pain | [place] | [place], [place] | | | | | | [address] | [address] | | | | | | Phone: | | | | | | | [phone] | | | | | | | Fax: | | | | | | | [phone] | | +--------+--------+ + + + + Encounter Details +--------+---------+ + + + | Date | Type | Department | Care Team | Description | +--------+---------+ + + + | 08/09/ | Office | [facility] Comprehensive | Rosi Antonio, | Fibromyalgia | | 2013 | Visit | Pain Center at | ANP | syndrome 729.1 | | | | [facility] [place] | | (Primary Dx); Major | | | | [address] | | depressive disorder, | | | | [facility] | | recurrent episode, | | | | and Healing, | | moderate (HCC); | | | | Building | | Adjustment disorder | | | | Floor [place], [place] | | with anxiety; LBP | | | | [address] | | (low back pain); | | | | [phone] | | Osteopenia; Chronic | | | [...] Diabetes Care. 28(1):89-94, 2005 Jun; Anca M, FILM OR VIDEOTAPE EDITOR Drugs. [address] 1:25-30; discussion 45-6, [...] in two months as needed. NIHARIKA BERRIOS [facility] documented in this encounter Progress Notes Rosi Antonio ANP - 08/09/2013 12:03 PM PSTFormatting of this note might be different fro m the original. [facility] Return Visit 08/09/2013 Belinda Meehan; [...] never going to her local hospital in [place] for any medical evaluations. Belinda is very [...] and a pain drawing which I reviewed. [facility] Brief Pain Inventory: (ten= worst possible pain [...] regions, she notes pain in her right spiritism, bilateral shoul crista muscles, left elbow, entire [...] knee Lumbar fusion 05/2008, ' & ' L5-Y5qpbkrn with bone spur removals Appendectomy Cholecystectomy section [...] Hives Mainly in the legs Clindamycin Codeine Iqfyyvc-Mzxeuidnes-Tch-Caff Balance problems Fioricet W/Codeine (Eakuvhqtnu-Tagtoprqri-Qju-Cod) Keflex (Cephalexin) Morphine IM ( only in [facility]) made gut pain worse 08/27/06: Trial of oral MSIR caused leg swelling Penicillins Sulfa (Sulfonamide Antibiotics) Tramadol Ms. Meehan reports no side effects. The Review of Systems provided by Ms. Meehan and documented by the [facility] was reviewed. This data was entered by [...] al. Diabetes Care. 28(1):89-94, 2004; Anca M, FILM OR VIDEOTAPE EDITOR Drugs. [address] 1:25-30; discussion 45-6, [...] of which more than 50% was spent kmdym-dh-ggrf in r eviewing pain questionnaire, medical record, [...] + +---------+ + + | [facility] [...]
--- OUTSIDE RECORDS SUMMARY | ~2020-02-29 | XMS | Encounter Summary ---
Demographics + + + | Address | [address] | | | [place] [address] | + + + | Home Phone [...] Providers + +------+ + | Care Pharmacist Intern Name | Role | Phone | [...] [place] | | | | | | [address] | | | +--------+ + + + [...]
--- OUTSIDE RECORDS SUMMARY | ~2020-02-29 | XMS | Encounter Summary ---
Demographics + + + | Address | [address] | | | [place] [address] | + + + | Home Phone [...] Providers + +------+ + | Care Animal Killer Name | Role | Phone | + [...] + | 11/12/ | Telephone | [facility] | Alanis, | Leg Swelling | | 2017 | | MEDICINE [address] | MD [place] | | | | | [place], | [address] [place] | | | | | [place] [address] | [place] [address] | | | | | [phone] | [phone] | | | | | | | [...] | | | | | [place] [address] | | | | | | [phone] | | | | | | | | +--------+---------+ + + + documented as of this encounter Visit Diagnoses Not on filedocumented in this encounter"
--- OUTSIDE RECORDS SUMMARY | ~2020-02-29 | XMS | Encounter Summary ---
Demographics + + + | Address | [address] | | | [place] [address] | + + + | Home Phone [...] Team Providers + +------+ + | Care Commission Specialist Name | Role | Phone | [...] Required | | | i, | [address] | | | | | osteoporosis | Sulaiman-Russell | [place], | | | | | without | , MD [address] | [place] [address] | | | | | current | [address] | Phone: | | | | | pathological | [place], | [phone] | | | | | fracture | [place] | Fax: | | | | | | [address] | [phone] | | | | | | Phone: | | | | | | | [phone] | | | | | | | Fax: | | | | | | | [phone] | | +--------+ + + + + [...] Required | | | i, | [address] | | | | | osteoporosis | Sulaiman-Russell | [place], | | | | | without | , [address] | [place] [address] | | | | | current | [address] | Phone: | | | | | pathological | [place], | [phone] | | | | | fracture | [place] | Fax: | | | | | | [address] | [phone] | | | | | | Phone: | | | | | | | [phone] | | | | | | | Fax: | | | | | | | [phone] | | +--------+ + + + + + Encounter Details +--------+ + + + + | Date | Type | Department | Care Team | Description | +--------+ + + + + | 10/14/ | Hospital | [facility] | Alanis, | Age-related | | 2018 | Encounter | MED CTR OP INFUSION | MD [place] | osteoporosis without | | | | [address] | [address] [facility] | current | | | | [place] | [place] [address] | pathological | | | | [address] | [phone] | fracture (Primary | | | | [phone] | | Dx) | +--------+ + + [...] | | | | | | [address] [place] [address] [place] | | | | | | [place] [address] | | | | | | [phone] | | | | | | | [...]
--- OUTSIDE RECORDS SUMMARY | ~2020-02-29 | XMS | Encounter Summary ---
Demographics + + + | Address | [address] | | | [place] [address] | + + + | Home Phone [...] Providers + +------+ + | Care Cover Operator Name | Role | Phone [...] as of this encounter Progress Notes Interface, Charge Out Clerk In - 01/13/2005 9:03 AM PDT [id number] [facility] Date: 01/02/2005 Clinic: [facility] Subjective: Ms. Meehan presents today on a walk-in basis for evaluation of some discharge from her panniculectomy incisions over her medial thighs. She reports that she was in town today from [place], [place], to get some labs drawn at [facility] and decided to stop by the [...] Sree Riley M.D. Chris Padgett M.D. / [id number] / [id number] / [id number] / [id number] C: 01/08/2005 cmw documented i n this encounter Plan of Treatment Not on filedocumented as of this encounter Visit Diagnoses Not on filedocumented in this encounter"
--- OUTSIDE RECORDS SUMMARY | ~2020-02-29 | XMS | Encounter Summary ---
Demographics + + + | Address | [address] | | | [place] [address] | + + + | Home Phone [...] Providers + +------+ + | Care National Van Owner Operator Name | Role | Phone [...] Medication Refill | | 2017 | | [facility] [address] | MD [place] | | | | | [place], | [address] [place] | | | | | [place] [address] | [place] [address] | | | | | [phone] | [phone] | | | | | | | [...] | | | | | [place] [address] | | | | | | [phone] | | | | | | | | +--------+---------+ + + + documented as of this encounter Visit Diagnoses Not on filedocumented in this encounter"
--- OUTSIDE RECORDS SUMMARY | ~2020-02-29 | XMS | Encounter Summary ---
Demographics + + + | Address | [address] | | | [place] [address] | + + + | Home Phone [...] Providers + +------+ + | Care Air Tube Releaser Name | Role | Phone | + [...] + | 06/09/ | Telephone | [facility] | Alanis, | Safety issue | | 2018 | | MEDICINE [address] | MD [place] | | | | | [place], | [address] | | | | | [place] [address] | [place] [address] | | | | | [phone] | [phone] | | | | | | | [...] 3:45 PM Trent WOODWARD connected with Ligia bowsre. She lives with her son and his girlfriend and her son have been staying at her home f or the past week. Sree (son) took his g/f and her son home today. Belinda "hopes things will calm down now they're gone". Patient requested a call in "a cou le sy" for a wellness check. Belinda has a child welfare caseworker, Tania, through [facility]. Her housing is stable but she "wants to move where no one can live above her". Her hope is to have a house with a xuzsew[place]qd-gji cottage . This SW offered to coordinate with her child welfare caseworker and assist with housing but she declin ed at this time. Belinda receives food stamps and has enough food. Belinda has a state caregiver to help with cleaning and transportation to appointments. Belinda no longer drives. Belinda declined coun Hello Chairing resources. el ephone Encounter - Shalonda Mcdermott [...] help with? elephone Encounter - Teresa Mitchell, Profile Saw Operator - 06/09/2019 5:04 PM PSTPhone call from [...] office until 06/13/19. Is there anything that [facility] n help with? 5: 17 PM PSTdocumented [...] | | | | | [place] [address] | | | | | | [phone] | | | | | | | | +--------+---------+ + + + documented as of this encounter Visit Diagnoses Not on filedocumented in this encounter
--- OUTSIDE RECORDS SUMMARY | ~2020-02-29 | XMS | Encounter Summary ---
Demographics + + + | Address | [address] | | | [place] [address] [...] Team Providers + +------+ + | Care Subacute Nurse Name | Role | Phone | [...] + + | 02/04/ | Telephone | [facility] | Emmy-Jeffti, | Other (Kidney pain ) | | 2017 | | MEDICINE [address] | MD Petrona | | | | | [place], | [address] | | | | | [place] [address] | [place] [address] | | | | | [phone] | [phone] | | | | | | | [...] o talk to primary's nurse. Please call [phone]. documented in this encounter Plan of Treatment +--------+---------+ + + + | Date | Type | Specialty | Care Team | Description | +--------+---------+ + + + | 05/17/ | Office | Internal Medicine | Alanis, | | | 2019 | Visit | | MD Petrona | | | | | | [address] [place] [address] [place] | | | | | | [place] [address] | | | | | | [phone] | | | | | | | | +--------+---------+ + + + documented as of this encounter Visit Diagnoses Not on filedocumented in this encounter"
--- OUTSIDE RECORDS SUMMARY | ~2020-02-29 | XMS | Encounter Summary ---
Demographics + + + | Address | [address] | | | [place] [address] | + + + | Home Phone [...] Providers + +------+ + | Care Sales Clerk Food Name | Role | Phone | [...] | | | | | | Mailcode: [facility] | | | | | | | [facility] Center | | | | | | | for Health | | | | | | | and Healing, | | | | | | | Building [address] | | | | | | | [facility] [place] | | | | | | | [address] | | | | | | | Phone: | | | | | | | [phone] | | | | | | | Fax: | | | | | | | [phone] | +--------+--------+ + + + + Encounter Details +--------+ + + + + | Date | Type | Department | Care Team | Description | +--------+ + + + + | 09/14/ | Hospital | [facility] PROCEDURE | Olivia, | | | 2008 | Encounter | [address] | MD Pedrito | | | | | Bethanie Mailcode: [facility] | | | | | | [facility] for | | | | | | Health and Healing, | | | | | | [address] | | | | | | [facility] [place] | | | | | | [address] | | | | | | [phone] | | | +--------+ + + + [...] encounter Discharge Instructions Instructions EdisonMarleen - 09/14/2008 [facility] [place] [address] Toll Free ext: [phone] Home Care Instructions after EGD (Upper Endoscopy) [...] hours, or on weekends and holidays Hospital Contact Center Team Lead and have the GI doctor recreational director paged. The provider who performed your procedure [...] Meehan is a 48 y.o. female MR# [id number] presents today for an EG D to [...] 01/22/2006 Tramadol 01/22/2006 Morphine Clarithromycin Hives 06/28/2007 Vlhethq-kqadbeevhf-hat-caff 08/28/2008 See procedure note 09/14/2008 documented in [...]
--- OUTSIDE RECORDS SUMMARY | ~2020-02-29 | XMS | Encounter Summary ---
[...] Providers + +------+ + | Care Automotive Brake Specialist Name | Role | Phone | [...] | Procedures | [address] | [place] | | | | | CONSULT TO | [facility] | [address] | | | | | GI PROCEDURE | Rd | floor | | | | | UNIT: SM | [place], [place] | [place], [place] | | | | | BOWEL | [address] | [address] | | | | | CAPSULE | Phone: | Phone: | | | | | ENDOSCOPY | [phone] | [phone] | | | | | | | Fax: | | | | | | | [phone] | +--------+--------+ + + + + Consultation [...] | | Procedures | [facility] | [place], [place] | | | | | CONSULT TO | Rd | [address] | | | | | PAIN CENTER | [place], [place] | | | | | | | [address] | | | | | | | Phone: | | | | | | | [phone] | | +--------+--------+ + + + + Encounter Details +--------+---------+ + + + | Date | Type | Department | Care Team | Description | +--------+---------+ + + + | 04/07/ | Office | [facility] Division of | Carlos Arreola, | Iron Deficiency; | | 2005 | Visit | Gastroenterology/Hep | [address] | Chronic Abdominal | | | | atology [address] | [facility] | Pain | | | | [address] | [place] [address] | | | | | Mailcode: PV310 | [phone] | | | | | [facility]ilion | | | | | | [address] | | | | | | [place], [place] | | | | | | [address] | | | | | | [phone] | | | +--------+---------+ + + + [...] December reviewed and normal (past ed below). [facility] labs received and reviewed: [...] HEPATIS NODES. Transcribed By: Armaan Rivera : [id number] : 1224 Approved By: CT ABDOMEN AND [...] HEPATIS NODES. Transcribed By: Armaan Rivera : [id number] : 1224 Approved By: Carlos Benton - [...]
--- OUTSIDE RECORDS SUMMARY | ~2020-02-29 | XMS | Encounter Summary ---
Demographics + + + | Address | [address] | | | [place] [address] | + + + | Home Phone [...] Team Providers + +------+ + | Care Brooch Maker Novelty Name | Role | Phone | + [...] 07/30/ | Office | [facility] Center at [facility] | Lukasz Charles, | Major Depressive | | 2006 | Visit | [address] | PhD [address] | Disorder, Recurrent | | | | Center for Health | [place], [place] | Episode, Moderate; | | | | and Healing, | [address] | Chronic Abdominal | | | | | [phone] | Pain; Herniated | | | | Floor [place], [place] | | Lumbar | | | | [address] | | Intervertebral Disc | | | | [phone] | | L4-5; Spondylosis | | | [...] She set a goal to go to [place] with a friend and use pacing skills during the trip. Ms. Meehan has depression and frustration. She is having some difficulty increasing her a ctivity level but she is putting forth effort. She appears to have good insight. Diagnosis: [place] I: 1. (296.32) Major depressive disorder, recurrent, moderate. 2. (309.24) Adjustment disorder with anxiety. 3. (307.89) Chronic pain disorder associated with both psychological factors and a gene ral medical condition. [place] II: Deferred [place] III: abdominal pain, migraine headache, low back pain. [place] IV: low finances [place] V: GAF 50 Plan: Return in 2 weeks. Check pacing, relaxation, activity. Check trip to [place]. Check mood. Continue cognitive/behavioral therapy. Total time spent with patient was approximately 45 minutes. LUKASZ CHARLES [facility] [address] [facility] [place] [address] documented in this encount er Plan of Treatment + + +--------+ + + | Name | Type | Priori | Associated Diagnoses | Order Schedule | | | | ty | | | + + +--------+ + + | DC PSYCHOTHERPY, | Procedures | Routin | Major Depressive | Ordered: 07/31/2006 | | OFFICE (79-47) | | e | Disorder, Recurrent | [...]
--- OUTSIDE RECORDS SUMMARY | ~2020-02-29 | XMS | Encounter Summary ---
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 female [facility] Return Visit Chief Complaint: [...] [facility] Brief Pain Inventory: Right Now: 9 [...] Additional Family History Mother Migraine Resulting Agency [facility]-POINT OF CARE TESTS Result Impression NAME: BELINDA MEEHAN MR #: [id number] DATE OF EXAM: [id number] PHYSICIAN: EMMA ROJAS [...] DISK BULGE. Transcribed By: Armaan Mata : [id number] : 1442 Approved By: Radiologist: Physical Examination: [...] Care [facility] [place] to address her back pain that would [...] vs Hernia. 6. PT here at the [facility] available 7. Repeat TESI as needed. DELFINA MOLINA [facility] CENTER Mail code CH 4P [facility] [address] [facility] [address] Ty Omalley - 9:12 AM [...]
--- OUTSIDE RECORDS SUMMARY | ~2020-02-29 | XMS | Encounter Summary ---
Demographics + + + | Address | [address] | | | [place] [address] | + + + | Home Phone [...] Team Providers + +------+ + | Care Petrophysicist Name | Role | Phone | + [...] + + | 08/14/ | Refill | [facility] | Alanis, | Medication Refill | | 2019 | | MEDICINE [address] | MD Petrona | | | | | [place], | [address] [facility] | | | | | [place] [address] | [place] [address] | | | | | [phone] | [phone] | | | | | | | [...] | | | | | [place] [address] | | | | | | [phone] | | | | | | | | +--------+---------+ + + + documented as of this encounter Visit Diagnoses Not on filedocumented in this encounter"
--- OUTSIDE RECORDS SUMMARY | ~2020-02-29 | XMS | Encounter Summary ---
Demographics + + + | Address | [address] | | | [place] [address] | + + + | Home Phone [...] Providers + +------+ + | Care Jig Grinder Name | Role | Phone | [...] + + | 03/05/ | Telephone | [facility] | Alanis, | Other | | 2017 | | MEDICINE [address] | MD Petrona | | | | | [place], | [address] [facility] | | | | | [place] [address] | [place] [address] | | | | | [phone] | [phone] | | | | | | | [...] - 03/05/2018 9:19 AM PDTShalonda [facility] patient, Shalonda can be reached at [phone] ically signed by Sia Bai at 03/05/2018 [...] | | | | | [place] [address] | | | | | | [phone] | | | | | | | | +--------+---------+ + + + documented as of this encounter Visit Diagnoses + + | Diagnosis | + + | Non-intractable vomiting with nausea, unspecified vomiting type - Primary | + + documented in this encounter"
--- OUTSIDE RECORDS SUMMARY | ~2020-02-29 | XMS | Encounter Summary ---
Demographics + + + | Address | [address] | | | [place] [address] | + + + | Home Phone [...] Providers + +------+ + | Care Self Pay Specialist Name | Role | Phone | [...] + + | 08/28/ | Office | [facility] Comprehensive | Delfina Molina, | Neck Pain; Radicular | | 2008 | Visit | Pain Center at | ANP | Pain in Left Arm; | | | | [facility] | | Fibromyalgia; | | | | [address] | | Chronic Bilateral | | | | Center for [facility] | | Shoulder Pain; | | | | and Healing, | | Coccydynia; LBP (Low | | | | | | Back Pain); | | | | Floor [place], [place] | | Adjustment Disorder | | | | [address] | | with Anxiety; Major | | | | [phone] | | Depressive Disorder, | | | [...] Belinda Meehan is a 48 y.o. female [facility] [...] drawing has be completed, which I reviewed. 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
--- OUTSIDE RECORDS SUMMARY | ~2020-02-29 | XMS | Encounter Summary ---
Demographics + + + | Address | [address] | | | [place] [address] | + + + | Home Phone [...] Providers + +------+ + | Care Sales Market Leader Name | Role | Phone | [...] | Pain | Diagnoses | [place], | [place], | | | | Management | LBP (low | NIHARIKA Jean | Lukasz Rhodes, PhD | | | | | back pain) | [address] | [address] | | | | | DJD | [address] | Ave | | | | | (degenerativ | [place], [place] | [place], [place] | | | | | e joint | [address] | [address] | | | | | disease) of | | Phone: | | | | | knee Knee | | [phone] | | | | | pain Major | | Fax: | | | | | depressive | | [phone] | | | | | disorder, | [...] 03/03/ | Office | [facility] Center at [facility] | Lukasz Charles, | Major Depressive | | 2007 | Visit | [address] | PhD [address] | Disorder, Recurrent | | | | Center for Health | [place], [place] | Episode, Moderate | | | | and Healing, | [address] | ([facility]); LBP (Low Back | | | | | [phone] | Pain); Bilateral | | | | Floor [place], [place] | | Knee Pain; | | | | [address] | | Fibromyalgia | | | | [phone] | | syndrome 729.1; | | | [...] a lot and is going to the [employer] regularly. She mentioned that she is taking [...] seems to be doing good self-care. Diagnosis: [place] I: 1. (296.32) Major depressive disorder, recurrent, moderate. 2. (309.24) Adjustment disorder with anxiety. 3. (307.89) Chronic pain disorder associated with both psychological factors and a gene ral medical condition. [place] II: Deferred [place] III: abdominal pain, migraine headache, low back pain. [place] IV: low finances Norton V: GAF 55-60 Plan: return with next medical follow-up appointment. Check mood, pain, relaxation, activ ity, distraction, eating. Continue cognitive/behavioral therapy. Total time spent with patient was approximately 45 minutes. LUKASZ CHARLES PHD [facility] [address] [facility], 4th [place] [address] documented in this encount er Plan of [...] | | ([facility]) LBP (Low Back | | | [...]
--- OUTSIDE RECORDS SUMMARY | ~2020-02-29 | XMS | Encounter Summary ---
Demographics + + + | Address | [address] | | | [place] [address] | + + + | Home Phone [...] Providers + +------+ + | Care Professional Programmer Analyst Name | Role | Phone | + +------+ + | Petrona Thapa | PCP | | | MD | | | + +------+ + Encounter Details +--------+ + + + + | Date | Type | Department | Care Team | Description | +--------+ + + + + | 09/15/ | Hospital | [facility] | Alanis, | Pain in right lower | | 2019 | Encounter | [facility] | MD Petrona | leg | | | | [address] [place] | [address] [facility] | | | | | [place], [place] | [place] [address] | | | | | [address] | [phone] | | | | | [phone] | | | +--------+ + + + [...] | | | | | [place] [address] | | | | | | [phone] | | | | | | | [...]
--- OUTSIDE RECORDS SUMMARY | ~2020-02-29 | XMS | Encounter Summary ---
Demographics + + + | Address | [address] | | | [place] [address] | + + + | Home Phone [...] Team Providers + +------+ + | Care Seaman Officer Name | Role | Phone | [...] + + | 03/14/ | Refill | [facility] | Alanis, | Medication Refill | | 2018 | | MEDICINE [address] | MD Petrona | | | | | [place], | [address] [facility] | | | | | [place] [address] | [place] [address] | | | | | [phone] | [phone] | | | | | | | [...] | | | | | [place] [address] | | | | | | [phone] | | | | | | | | +--------+---------+ + + + documented as of this encounter Visit Diagnoses Not on filedocumented in this encounter"
--- OUTSIDE RECORDS SUMMARY | ~2020-02-29 | XMS | Encounter Summary ---
Demographics + + + | Address | [address] | | | [place] [address] | + + + | Home Phone [...] + + | 02/26/ | Hospital | [facility] | Alanis, | Age-related | | 2019 | Encounter | MED CTR OP INFUSION | MD Petrona | osteoporosis without | | | | [address] | [address] [facility] | current | | | | [place] | [place] [address] | pathological | | | | [address] | [phone] | fracture (Primary | | | | [phone] | | Dx) | +--------+ + + [...] | | | | | | : [facility] | Decreased | | | | | [...] | | | | | | [address] [place] [address] [place] | | | | | | [place] [address] | | | | | | [phone] | | | | | | | [...]
--- OUTSIDE RECORDS SUMMARY | ~2020-02-29 | XMS | Encounter Summary ---
Demographics + + + | Address | [address] | | | [place] [address] | + + + | Home Phone [...] Providers + +------+ + | Care Intelligence Director Name | Role | Phone | [...] + + | 08/18/ | Office | [facility] | Alanis, | Preop examination | | 2017 | Visit | MEDICINE [address] | MD Petrona | (Primary Dx); | | | | [facility] [facility], | [address] [facility] | Tr[place] | | | | [place] [address] | [place] [address] | all digits of left | | | | [phone] | [phone] | hand | | | | | [...] r with Dr. Dr Jefe Cruz in [place], [place]. . She had surgery before and [...] Had a basal metabolic panel yesterday at [facility] in [place] which came back okay. REVIEW OF SYSTEMS [...] Osteopenia Osteoporosis Peripheral neuropathy (HCC) Rheumatoid arthritis ([facility] - [...] (See Comments) Confused and questionable for seizures Nylycodkif-Yuxw-Qeeyiddc Cephalexin Hives Duloxetine Migraines and nausea Ketorolac Hives Morphine Swelling Ropinirole Hcl Hives Tramadol Hcl Nausea Only Uixzszsste-Btix-Sbhotqwo Hives and Rash Ciprofloxacin Hives and Rash [...] Note: Parts of this documentwere created using [employer] speech recognition software. As a r esult, [...] | | | [facility] [address] [facility] | | | | | | [place] [address] | | | | | | [phone] | | | | | | | [...]
--- OUTSIDE RECORDS SUMMARY | ~2020-02-29 | XMS | Encounter Summary ---
Demographics + + + | Address | [address] | | | [place] [address] | + + + | Home Phone [...] Providers + +------+ + | Care Wallpaper Hanger Name | Role | Phone | [...] of this encounter Progress Notes Interface, Security Systems Engineer In - 06/06/2005 2:05 AM PST [id number] [facility] Date: 05/29/2005 Clinic: Bariatric [...] a day. She has had workups in [place] including CT and upper GI with small-bowel followthrough which have reportedly been negative. She has some recent changes in her medications including addition of a calcium channel colby and diclofenac. She says her symptoms gets worse every time she takes pain medicine. She is currently taking oxycodone. Her primary doctor in [place] is Dr. Gutierrez. Physical Examination: Vital Signs: [...] will try to arrange for her in [place], so she does not have to come out here. We will call Dr. Gutierrez to try to arrange for this and followup her within 3 months. The patient was seen with Dr. Padgett. Karen Cisneros M.D. Chris Padgett M.D. / [id number] / [id number] / [id number] / [id number] Electronically signed by Chris Padgett 06-05-2005 05:29:09 PM documented i n this encounter Plan of Treatment Not on filedocumented as of this encounter Visit Diagnoses Not on filedocumented in this encounter"
--- OUTSIDE RECORDS SUMMARY | ~2020-02-29 | XMS | Encounter Summary ---
[...] Providers + +------+ + | Care Boat Engines Installer Name | Role | Phone | [...] | | | Metabolism | bypass | [address] | [address] | | | | | Hypovitamino | [address], | Ave | | | | | sis D [address]12 | [address] | [place], [place] | | | | | nutritional | [place], [place] | [address] | | | | | deficiency | [address] | Phone: | | | | | Other | Phone: | [phone] | | | | | protein-jose manuel | [phone] | Fax: | | | | | nick | Fax: | [phone] | | | | | malnutrition | [phone] | | | | | | Weight | | | | | | | gain | | | | | | | Procedures | | | | | | | CONSULT TO | | | | | | | ENDO | | | | | | | [address] | | | | | | | [address] | | | +--------+--------+ + + + [...] | | | [facility] | [place], [place] | Metabolic syndrome X | | | | [address] | [address] | 250.80; Essential | | | | [address] | [phone] | hypertension 401.9; | | | | Physician[facility] Pavilion | | IGT (impaired | | | | Physician's | | glucose tolerance) | | | | Pavilion [place], | | | | | | [place] [address] | | | | | | [phone] | | | +--------+---------+ + + + [...] Hives Mainly in the legs Clindamycin Codeine Bculrva-Eeaknmfgdn-Lgy-Caff Balance problems Fioricet W/Codeine (Deksdvffjy-Mhcrnxlegw-Fqc-Cod) Keflex (Cephalexin) Morphine IM ( only in [facility]) made gut pain worse 08/27/06: [...] U/L 41 ANION GAP 8 VITAMIN B12, [id number] pg/ml >2000 (H) HEMOGLOBIN A1C <=5.6 % [...] SERUM 15.0-85.0 pg/ml 222.9 (H) VITAMIN B12, [id number] pg/ml > 2000 HEMOGLOBIN A1C <=5.6 % [...]
--- OUTSIDE RECORDS SUMMARY | ~2020-02-29 | XMS | Encounter Summary ---
Demographics + + + | Address | [address] | | | [place] [address] | + + + | Home Phone [...] Providers + +------+ + | Care Manager Ambulatory Name | Role | Phone | [...] | | | | | Procedures | [facility] | [place] for | | | | | CONSULT TO | Rd | Health and | | | | | NEUROLOGY | [place], [place] | Healing, | | | | | | [address] | [address], | | | | | | Phone: | 8th Floor | | | | | | [phone] | [place], [place] | | | | | | | [address] | | | | | | | Phone: | | | | | | | [phone] | | | | | | | Fax: | | | | | | | [phone] | +--------+--------+ + + + + Reason [...] | | | [facility] | [place], [place] | Weak; | | | | [address] | [address] | Migraine Headache | | | | [address] | [phone] | | | | | [facility] | | | | | | Physician's | | | | | | Pavilion [place], | | | | | | [place] [address] | | | | | | [phone] | | | +--------+---------+ + + + [...] (ciprofloxacin) Tramadol Morphine IM ( only in [facility]) made gut pain worse 08/27/06: Trial of oral MSIR caused leg swelling Clarithromycin Hives Mainly in the legs Current outpatient prescriptions : aspirin chewable (BABY ASPIRIN) 81 mg Oral Tablet, Chewa ble, 2 daily, Disp: , Rfl: buPROPion XL (WELLBUTRIN XL) 300 mg Oral Tablet Sustained Release 24 hr, take 1 tablet (300 mg) by oral route once daily, Disp: , Rfl: mdqaqzgowu-psvxgfgiboxzs-nokxcjgv (FIORICET) 50-325-40 mg Oral Tablet, take 2 [...] LE edema Results for BELINDA MEEHAN Molly (ID#[id number]) as of 03/01/2008 9:22:28 PM Ref. Range [...] K/cu mm 220 Results for BELINDA MEEHAN (ID#[id number]) as of 03/01/2008 9:22:28 PM Ref. Range [...] at [facility] with, hopefully, coordin [facility] services. RTC in 3 mos, earlier [...] OF | [address] | [place] [address] | | | PATHOLOGY | [address] | | | + + + + + | [place] DEPARTMENT | [address] | [place] [address] | | | PATHOLOGY | [address] [...] Performed At | + + + | [id number] Estimated GFR > 60 mL/min/1.73 sq m if non- | [facility] | | Citizen [place] [id number] Estimated GFR > 60 mL/min/1.73 sq m if | DEPARTMENT OF | | Citizen [place] GFR is estimated using the MDRD equation [...] [facility] DEPARTMENT OF | [address] | [place] [address] | | | PATHOLOGY | [address] | | | + + + + + | [facility] DEPARTMENT OF | [address] | [place] [address] | | | PATHOLOGY | [address] [...] ([facility]) | | | [facility] [place] [address] | | | [place] [address] | | + + + + + + + + | Performing | Address | City/State/Zipcode | Phone Number | | Organization | | | | + + + + + | [facility] | [address] | [place] [address] | | | LABORATORY | | | [...] RLB ([facility]) | | | [facility] [address] | | | [place] [address] | | + + + + + + + + | Performing | Address | City/State/Zipcode | Phone Number | | Organization | | | | + + + + + | [facility] | [address] | [place] [address] | | | LABORATORY | | | [...]
--- OUTSIDE RECORDS SUMMARY | ~2020-02-29 | XMS | Encounter Summary ---
Demographics + + + | Address | [address] | | | [place] [address] [...] Team Providers + +------+ + | Care Electrolysis Needle Operator Name | Role | Phone | [...] + + | 03/12/ | Refill | [facility] | Alanis, | Medication Refill | | 2018 | | MEDICINE [address] | MD Petrona | | | | | [place], | [address] [facility] | | | | | [place] [address] | [place] [address] | | | | | [phone] | [phone] | | | | | | | [...] | | | | | [place] [address] | | | | | | [phone] | | | | | | | | +--------+---------+ + + + documented as of this encounter Visit Diagnoses Not on filedocumented in this encounter"
--- OUTSIDE RECORDS SUMMARY | ~2020-02-29 | XMS | Encounter Summary ---
Demographics + + + | Address | [address] | | | [place] [address] | + + + | Home Phone [...] + +------+ + | Care Health Care Coach Name | Role | Phone | [...] | | | [facility] | [place], [place] | | | | | [address] | [address] | | | | | [address] | [phone] | | | | | Physician's | | | | | | Pavilion, 1st floor | | | | | | [place], [place] | | | | | | [address] | | | | | | [phone] | | | +--------+--------+ + + + [...] 08/19/2010 12:09 PM PSTLast Office Visit in [facility] was on 07/25/08 at 1:20 pm with Beto Meeks MD. documented in this encoun ter Plan of Treatment Not on filedocumented as of this encounter Visit Diagnoses Not on filedocumented in this encounter"
--- OUTSIDE RECORDS SUMMARY | ~2020-02-29 | XMS | Encounter Summary ---
Demographics + + + | Address | [address] | | | [place] [address] | + + + | Home Phone [...] as of this encounter Progress Notes Interface, Pugger Helper In - 01/11/2005 8:56 PM PDTClinic Date: [...] bypass surgery and will be admitted to [facility] for this procedure on November 22, 2003. [...] Ester Romero M.D. Issac Meeks M.D. / [id number] / [id number] / [id number] / [id number] Tdocumented in this encounter Plan of Treatment Not on filedocumented as of this encounter Visit Diagnoses Not on filedocumented in this encounter"
--- OUTSIDE RECORDS SUMMARY | ~2020-02-29 | XMS | Encounter Summary ---
Demographics + + + | Address | [address] | | | [place] [address] | + + + | Home Phone [...] Providers + +------+ + | Care Nurse Sane Name | Role | Phone | + [...] as of this encounter Progress Notes Byron, Detective Supervisor In - 01/12/2005 6:46 AM PDTClinic [...] months. Chris Padgett M.D. CD / HS [id number] / [id number] / [id number] / Tdocumented in this encounter Plan of Treatment Not on filedocumented as of this encounter Visit Diagnoses Not on filedocumented in this encounter"
--- OUTSIDE RECORDS SUMMARY | ~2020-02-29 | XMS | Encounter Summary ---
Demographics + + + | Address | [address] | | | [place] [address] | + + + | Home Phone [...] 2013 | Encounter | Services at [facility] | | | | | | [address] | | | | | | Clementina Winkler [place] | | | | | | [facility], [address] [place] [address] | | | | | | [place], [place] | | | | | | [address] | | | | | | [phone] | | | +--------+ + + + [...]
--- OUTSIDE RECORDS SUMMARY | ~2020-02-29 | XMS | Encounter Summary ---
Demographics + + + | Address | [address] | | | [place] [address] [...] Providers + +------+ + | Care Medical Coding Technician Name | Role | Phone | + +------+ + | Suliaman Carrera MD | PCP | | + +------+ + Encounter Details +--------+ + + + + | Date | Type | Department | Care Team | Description | +--------+ + + + + | 03/19/ | Ancillary | Registration [id number] | | | | 2004 | Registratio | [address] | | | | | n | Peterson Mailcode: [id number] | | | | | | [place], [place] | | | | | | [address] | | | | | | [phone] | | | +--------+ + + + [...]
--- OUTSIDE RECORDS SUMMARY | ~2020-02-29 | XMS | Encounter Summary ---
Demographics + + + | Address | [address] | | | [place] [address] | + + + | Home Phone [...] Team Providers + +------+ + | Care Hauling Contractor Name | Role | Phone | [...] + | 06/21/ | Office | [facility] | Delfina Lambert, | LBP (Low Back Pain) | | 2008 | Visit | Pain Center at | ANP | (Primary Dx); Spinal | | | | [facility] | | Fusion Lumbar spine | | | | [address] | | ; Hx Arthroplasty | | | | Center for [facility] | | of both Knees; | | | | and Healing, | | Fibromyalgia | | | | | | syndrome 729.1; | | | | Floor [place], [place] | | Abdominal Pain, | | | | [address] | | dumping syndrome Hx | | | | [phone] | | of gastric bypass; | | [...] removal on 05/15/2008 Dr. Betty Thomas MD [facility], after having problems with nu mbness, burning [...] a migraine sp ecialist this week in [place], Dr Lucio Nichols. Next area of chronic [...] has be completed, which I reviewed. [facility] Brief Pain Inventory: (ten= worst possible pain [...] 3. Mental Health care: Dr Ogden psychology [facility] last visit today . [...] 300 mg) by oral route once daily xukrtnbdyk-gslwqutznazia-zpiqzlem (FIORICET) 50-325-40 mg Oral Tablet take 2 [...] 278 01/18 Paniculectomy Hx lumbar fusion 05/2008 [id number] with bone spur removals Family History Problem [...] psychologist when ever sh e comes to [place] for medical care. She has a strong [...] the clinic with any concerns or questions. [facility] Mail code CH 4P [facility] and [address] [place] [address] Ty Mendez - 12/2008 9:11 AM PSTCMA History: PMH/PSH/SH/FH review Patient had lumbar fusion in May 22. She also reports tooth abcess. She has script for an tibiotic tx waiting for her in [place]. 1. Has your pain changed from your [...]
--- OUTSIDE RECORDS SUMMARY | ~2020-02-29 | XMS | Encounter Summary ---
Demographics + + + | Address | [address] | | | [place] [address] [...] Providers + +------+ + | Care Fly Fishing Guide Name | Role | Phone | [...] of this encounter Progress Notes Interface, Termite Treater Helper In - 01/11/2005 11:07 PM PDT Referred [...] is being seen by an orthopedist in [place]. She brings her brace today which she states is going well. The patient, however, yesterday awoke with neck stiffness and pain with spasming type pains in the area of her neck. She was seen in the emergency room last night in [place] for injection after a migraine. She states [...] Aissatou De Jesus M.D. Joanna Rosario/derek P [id number] cc: Pedrito Gutierrez MD [address] [place], [place] [id number] signed by Interface, Termite Treater Helper In at 5 11:07 PM PDTdocumented in this encounter Plan of Treatment Not on filedocumented as of this encounter Visit Diagnoses Not on filedocumented in this encounter"
--- OUTSIDE RECORDS SUMMARY | ~2020-02-29 | XMS | Encounter Summary ---
Demographics + + + | Address | [address] | | | [place] [address] | + + + | Home Phone [...] +------+ + | Care Field Artillery Operations Man Name | Role | Phone | [...] | | | | SURGERY - | [place], [place] | [facility] | | | | | UROLOGY | [address] | for Health | | | | | | Phone: | and [place], | | | | | | [phone] | Building [address], | | | | | | Fax: | 10th Floor | | | | | | [phone] | [place], [place] | | | | | | | [address] | | | | | | | Phone: | | | | | | | [phone] | | | | | | | Fax: | | | | | | | [phone] | +--------+--------+ + + + + Reason [...] Incontinence | | 2006 | Visit | [facility] [address] | [address] | (Primary Dx); | | | | Bethanie Mailcode: CH4S | [address] | Status Post | | | | [facility] | [place], [place] | Bariatric Surgery | | | | and Healing, | [address] | | | | | [facility] | [phone] | | | | | Floor [place], [place] | | | | | | [address] | | | | | | [phone] | | | +--------+---------+ + + + [...] coughing. Medications: Fentanyl 25 mcg 72 hours, [place]/JOJO 10 mg/325 mg PRN Q 6 hrs, [...]
--- OUTSIDE RECORDS SUMMARY | ~2020-02-29 | XMS | Encounter Summary ---
Demographics + + + | Address | [address] | | | [place] [address] | + + + | Home Phone [...] + +------+ + | Care Oil Burner Journeyman Name | Role | Phone | [...] + + | 01/04/ | Telephone | [facility] | Ulysses Genao MD | Other | | 2017 | | OTOLARYNGOLOGY 301 | [address] [place] [address] | | | | | [address] [facility] [address] | [address] [place] | | | | | [place] | [address] | | | | | [address] | | | | | | [phone] | | | +--------+ + + + [...] Miscellaneous Notes Telephone Encounter - Louise Randall, Cold Meat Chef - 01/04/2018 2:48 PM PDTClosin g phone note 2: 57 PM PDTTelephone Encounter - Teja Hussein - 01/04/2018 1:08 PM PDTName of Caller: Kaleigh marcelino from [place] out patient Name of Patient: Belinda Meehan Reason for call: [facility] was called to check the status on referral. Pt has an appointment at 10 am tomorrow and they can not see her without the referral. Informed [facility] that referral is pending referral. She would like a call when that is approved. Provider/Nurse: Dr. Genao Call back number: [phone] documented in this encou nter Plan of [...] | | | | | [place] [address] | | | | | | [phone] | | | | | | | | +--------+---------+ + + + documented as of this encounter Visit Diagnoses Not on filedocumented in this encounter"
--- OUTSIDE RECORDS SUMMARY | ~2020-02-29 | XMS | Encounter Summary ---
Demographics + + + | Address | [address] | | | [place] [address] | + + + | Home Phone [...] Team Providers + +------+ + | Care Severity Of Illness Coordinator Name | Role | Phone | [...] | | | | | [address] | [address] Phone: | | | | | | [place], | [phone] | | | | | | [place] | Fax: | | | | | | [address] | [phone] | | | | | | Phone: | | | | | | | [phone] | | | | | | | Fax: | | | | | | | [phone] | | + + + + + + + Encounter Details +--------+ + + + + | Date | Type | Department | Care Team | Description | +--------+ + + + + | 12/20/ | Off-Site | [facility] | Emmy-Jeffti, | Sensorineural | | 2020 | Visit | OTOLARYNGOLOGY [address] | MD Petrona | hearing loss (SNHL) | | | | [address] | [address] [place] | of both ears | | | | [place] | [place] [address] | (Primary Dx); | | | | [address] | [phone] | Meniere's disease, | | | | [phone] | | unspecified | | | | | Ulysses Genao MD | laterality | | | | | [address] | | | | | | [address] [place] | | | | | | [address] | | | | | | | [...] the neck area noted. Audiogram: Patient speech solar photovoltaic electrician threshold is 30 dB bilaterally. Her speech [...] | | | | | | [place] [address] | | | | | | [phone] | | | | | | | | +--------+---------+ + + + documented as of this encounter Visit Diagnoses + + | Diagnosis | + + | Sensorineural hearing loss (SNHL) of both ears - Primary | + + | Meniere's disease, unspecified laterality | + + documented in this encounter
--- OUTSIDE RECORDS SUMMARY | ~2020-02-29 | XMS | Encounter Summary ---
Demographics + + + | Address | [address] | | | [place] [address] | + + + | Home Phone [...] Sleep | Diagnoses | | P[facility] | | | Services | Medicine | Diarrhea, | Emmy-Tajt | Ksd Sleep | | | Required | | unspecified | i, | Disorder [address] | | | | | type | [place] | [address] | | | | | | , [address] | [place], | | | | | [address] | [place] [address] | | | | | | [place], | Phone: | | | | | | [place] | [phone] | | | | | | [address] | Fax: | | | | | | Phone: | [phone] | | | | | | [phone] | | | | | | | Fax: | | | | | | | [phone] | | +--------+ + + + + [...] | (Primary Dx) | | | | [place] [address] | [place] [address] | | | | | [phone] | [phone] | | | | | | | [...] | | | | | [place] [address] | | | | | | [phone] | | | | | | | [...]
--- OUTSIDE RECORDS SUMMARY | ~2020-02-29 | XMS | Encounter Summary ---
Demographics + + + | Address | [address] | | | [place] [address] | + + + | Home Phone [...] Team Providers + +------+ + | Care Quad Stayer Name | Role | Phone | + [...] + + | 03/19/ | Telephone | [facility] | Emmy-Kamlesh, | Other (bowel issues) | | 2017 | | MEDICINE [address] | MD [place] | | | | | [place], | [address] [place] | | | | | [place] [address] | [place] [address] | | | | | [phone] | [phone] | | | | | | | [...] a llergic to dairy products. Please call [phone]. elephone Encounter - Adriana Cantor - 03/19/2018 [...] r antibiotic and medications. Patient has no child daycare worker with her today and her [facility] Patient would like a call back [...] | | | | | [place] [address] | | | | | | [phone] | | | | | | | | +--------+---------+ + + + documented as of this encounter Visit Diagnoses Not on filedocumented in this encounter"
--- OUTSIDE RECORDS SUMMARY | ~2020-02-29 | XMS | Encounter Summary ---
Demographics + + + | Address | [address] | | | [place] [address] | + + + | Home Phone [...] + + | 10/03/ | Telephone | [facility] | Miranda Lambert, | Erroneous Encounter | | 2009 | | Pain Center at | ANP | - Disregard | | | | [facility] | | | | | | [address] | | | | | | [facility] | | | | | | and Healing, | | | | | | Building | | | | | | Floor [place], [place] | | | | | | [address] | | | | | | [phone] | | | +--------+ + + + [...]
--- OUTSIDE RECORDS SUMMARY | ~2020-02-29 | XMS | Encounter Summary ---
Demographics + + + | Address | [address] | | | [place] [address] | + + + | Home Phone [...] + +------+ + | Care Commercial Account Manager Name | Role | Phone [...] | | | | | [address] | [address] [facility] | | | | | [place] | [place] [address] | | | | | [address] | [phone] | | | | | [phone] | | | +--------+ + + + [...] | | | | | [place] [address] | | | | | | [phone] | | | | | | | | +--------+---------+ + + + documented as of this encounter Visit Diagnoses Not on filedocumented in this encounter"
--- OUTSIDE RECORDS SUMMARY | ~2020-02-29 | XMS | Encounter Summary ---
Demographics + + + | Address | [address] | | | [place] [address] | + + + | Home Phone [...] Providers + +------+ + | Care Traffic Rate Analyst Name | Role | Phone | [...] | | | Clinical Nutrition | [place], [place] | | | | | [address] | [address] | | | | | Loop Mailcode: [id number] | [phone] | | | | | Outpatient Clinic | | | | | | [facility] | | | | | | [place] [address] | | | | | | [phone] | | | +--------+ + + + [...] DEPARTMENT OF | [address] | [place] [address] | | | PATHOLOGY | [address] | | | + + + + + | [facility] DEPARTMENT OF | [address] | [place] [address] | | | PATHOLOGY | [address] [...] [facility] | [address] | [place] [address] | | | PATHOLOGY | [address] | | | + + + + + | [facility] | [address] [place] [address] [address] | [place] [address] | | | PATHOLOGY | [address] | | | + + + + + documented in this encounter Visit Diagnoses Not on filedocumented in this encounter"
--- OUTSIDE RECORDS SUMMARY | ~2020-02-29 | XMS | Encounter Summary ---
Demographics + + + | Address | [address] | | | [place] [address] | + + + | Home Phone [...] Team Providers + +------+ + | Care Elect Equip Maint Eng Name | Role | Phone | [...] | Discussion | | 2007 | | [facility] & | MD | | | | | Healing [address] | | | | | | e [facility] | | | | | | Health and Healing, | | | | | | Building | | | | | | Floor [place], [place] | | | | | | [address] | | | | | | [phone] | | | +--------+ + + + [...] so can't call Dr. García for appt. ([facility] has [address] Nitin keller [...]
--- OUTSIDE RECORDS SUMMARY | ~2020-02-29 | XMS | Encounter Summary ---
Demographics + + + | Address | [address] | | | [place] [address] | + + + | Home Phone [...] + + | 05/14/ | Telephone | [facility] | Erich Conley MD | Medication Refill | | 2018 | | [address] | [address] [facility] | | | | | [place], | [place] | | | | | [place] [address] | [id number] | | | | | [phone] | | | +--------+ + + + [...] | | | | | [place] [address] | | | | | | [phone] | | | | | | | | +--------+---------+ + + + documented as of this encounter Visit Diagnoses Not on filedocumented in this encounter"
--- OUTSIDE RECORDS SUMMARY | ~2020-02-29 | XMS | Encounter Summary ---
[...] Providers + +------+ + | Care Rehab Nurse Name | Role | Phone | [...] of this encounter Progress Notes Interface, General Technician In - 02/15/2006 2:03 AM PDT [id number] [place]NI [place] [id number] Clinic Date: 10/23/2005 Clinic: Endocrinology Subjective: Belinda [...] her back on October 06, 2005, in [place], [place]. This study showed a moderate central disk bulge at L4-L5 consistent with a herniated nucleus pulposus. There has been some discussion by her physicians in [place] about the possibility of giving her epidural [...] most recent laboratory studies were performed in [place] on July 02, 2005. At that time, [...] months. Beto Meeks M.D. PD / HS [id number] / [id number] / [id number] / cc: Joanna Arshad M.D. [address] [place] [address] Electronically signed by Beto Meeks 02-14-2006 02:02:42 AM documented i n this encounter Plan of Treatment Not on filedocumented as of this encounter Visit Diagnoses Not on filedocumented in this encounter"
--- OUTSIDE RECORDS SUMMARY | ~2020-02-29 | XMS | Encounter Summary ---
Demographics + + + | Address | [address] | | | [place] [address] | + + + | Home Phone [...] Providers + +------+ + | Care Apartment Rental Agent Name | Role | Phone | [...] of this encounter Progress Notes Interface, Manager Statistics In - 01/03/2006 3:02 AM PDTCLINIC DATE: 11/01/2002 NEUROMUSCULAR CLINIC PRIMARY CARE PROVIDER: Pedrito Gutierrez M.D. OTHER PHYSICIAN: Issac Meeks M.D., [facility] Endocrinology. PROBLEM LIST 1. Fibromyalgia [...] fatigue. She reportedly has begun walking with [place] crutches much of the time due to [...] Pete M.D. Neurology/Neuromuscular Fellow TBD / HS [id number] / [id number] / [id number] / [id number] C: 11/10/2002 BRAD cc: Issac Meeks M.D. [facility] Endocrinology Pedrito Gutierrez M.D. [address] [place] [id number] signed by Interface, Manager Statistics In at 01/03/2006 3:0 2 AM PDTdocumented in this encounter Plan of Treatment Not on filedocumented as of this encounter Visit Diagnoses Not on filedocumented in this encounter
--- OUTSIDE RECORDS SUMMARY | ~2020-02-29 | XMS | Encounter Summary ---
Demographics + + + | Address | [address] | | | [place] [address] | + + + | Home Phone [...] Providers + +------+ + | Care State Highway Police Officer Name | Role | Phone [...] as of this encounter Progress Notes Interface, Traditional Chinese Herbalist In - 02/15/2006 2:03 AM PDT [id number] GEOVANNI [place] [id number] Clinic Date: 01/29/2006 Clinic: Endocrinology Belinda Meehan [...] her visits to the Emergency Department in [place], she apparently had elevated "liver enzyme levels" and her blood pressure was up to 160/98. She subsequently underwent diagnostic testing that apparently included CT imaging of her abdomen and upper GI endoscopy, abdominal ultrasound, and other testing; the results of which have apparently been normal. She started going to [employer] approximately 2 weeks ago which has increased her level of physical activity. She has only occasional headaches, due in part to ongoing treatment with propanolol. She apparently was referred by Dr. Padgett to see a radio sportscaster here at [facility] for further evaluation of severe recurrent [...] ([facility] and pulse 60 beats per [...] evaluated recently at the Emergency Department in [place]. Her alkaline phosphatase level today is about [...] would benefit from being evaluated by a radio sportscaster. According to the patient, no gastroenterologists are available in [place]. She needs to petition her primary care provider and her insurance company to give the necessary authorization to allow her to be evaluated by a radio sportscaster. Plan: 1. Await results of serum 25-hydroxyvitamin [...] She needs to be seen by a radio sportscaster. 5. Return to see me again in 3 months. Beto Meeks M.D. PD / HS [id number] / [id number] / [id number] / cc: Pedrito Gutierrez M.D. [address] [place] [address] Chris Padgett M.D. Electronically signed by Beto Meeks 02-14-2006 02:02:55 AM documented i n this encounter Plan of Treatment Not on filedocumented as of this encounter Visit Diagnoses Not on filedocumented in this encounter
--- OUTSIDE RECORDS SUMMARY | ~2020-02-29 | XMS | Encounter Summary ---
Demographics + + + | Address | [address] | | | [place] [address] | + + + | Home Phone [...] Providers + +------+ + | Care Furnace Setter Name | Role | Phone | [...] | | | | FAMILY | Rd [place], | | | | | | MEDICINE | [place] | | | | | | [address] | [address] | | | | | | [place] | Phone: | | | | | | [place], | [phone] | | | | | | [place] [address] | Fax: | | | | | | Phone: | [phone] | | | | | | [phone] | | | | | | | Fax: | | | | | | | [phone] | | +--------+--------+ + + + + [...] | (Primary Dx) | | | | [place] [facility] | [place], [place] | | | | | and Healing, | [address] | | | | | [facility] | [phone] | | | | | Floor [place], [place] | | | | | | [address] | | | | | | [phone] | | | +--------+---------+ + + + [...] She is being followe d [facility] providers for metabolic syndrome and hypothyroidism - Dr. Meeks, emotional issue s - Dr. Lukasz Ogden, and her PCP in [place]. She has sx of stress urinary incontinence [...] treated. She would like a urology or AIR QUALITY MANAGER referral as appropriate. Labs ordered. See in [...] [facility] | | | | | | [facility] | | | | | | [place], [place] [address] | | | | | | [phone]. | | | | | | Sincere [...] [facility] | [address] | [place], [place] | | | [facility] | | [address] | | + + + + + [...] | pg/mL | | | | | [facility]. | | | | + + + + + + + + | Specimen | + + | | + + + + + + + | Performing | Address | City/State/Zipcode | Phone Number | | Organization | | | | + + + + + | [facility] | [address] | [place] [address] | | | LABORATORY | | | [...] change effective | | | 04/05/07 [facility] ([facility]) | | | [facility] [address] | | | [place] [address] | | + + + + + + + + | Performing | Address | City/State/Zipcode | Phone Number | | Organization | | | | + + + + + | [facility] | [address] | [place] [address] | | | LABORATORY | | | [...] change effective | | | 04/05/07 [facility] ([facility]) | | | [facility] [place] [address] [facility] | | | [place] [address] | | + + + + + + + + | Performing | Address | City/State/Zipcode | Phone Number | | Organization | | | | + + + + + | [facility] | [address] | [place] [address] | | | LABORATORY | | | [...] Performed At | + + + | [address] Estimated GFR > 60 mL/min/1.73 sq m if non- | [facility] | | [address] Estimated GFR > 60 mL/min/1.73 sq m [...] HEALTH SERVICES | [address] | [place] [address] | | | PATHOLOGY | [address] | | | + + + + + | [facility] | [address] | [place] [address] | | | PATHOLOGY | [address] [...] + | [facility] | [address] [facility] | [place] [address] | | | PATHOLOGY | [address] | | | + + + + + | [facility] | [address] [facility] | [place] [address] | | | PATHOLOGY | [address] | | | + + + + + documented in this encounter Visit Diagnoses + + | Diagnosis | + + | Status post bariatric surgery - Primary Bariatric surgery status | + + documented in this encounter"
--- OUTSIDE RECORDS SUMMARY | ~2020-02-29 | XMS | Encounter Summary ---
Demographics + + + | Address | [address] | | | [place] [address] | + + + | Home Phone [...] Providers + +------+ + | Care Risk And Insurance Consultant Name | Role | Phone | [...] of this encounter Progress Notes Interface, Legal Internship In - 09/13/2005 2:06 AM PST [id number] GEOVANNI Barnes Clinic Date: 12/12/2004 Clinic: Endocrinology PHONE CONTACT NOTE The patient called me today after having surgery last week here at [facility]. Her concern was the development of 2 [...] cushion which I have ordered today through [employer], phone #[phone] and fax #[phone]. Today, the patient will monitor the decubiti closely and will be in touch with myself and her other physician depending on the progress. She also still has [address], which may be removed in one or two weeks when she returns to the Surgery Clinic at [facility]. Beto Meeks M.D. PD / HS [id number] / [id number] / [id number] / [id number] cc: Chris Padgett M.D. Electronically signed by Beto Meeks 09-12-2005 02:22:31 AM documented i n this encounter Plan of Treatment Not on filedocumented as of this encounter Visit Diagnoses Not on filedocumented in this encounter"
--- OUTSIDE RECORDS SUMMARY | ~2020-02-29 | XMS | Encounter Summary ---
Demographics + + + | Address | [address] | | | [place] [address] | + + + | Home Phone [...] of this encounter Progress Notes Interface, Medical Dir In - 08/19/2005 2:05 AM PST [id number] GEOVANNI Barnes Clinic Date: 07/24/2005 Clinic: Hematology/Oncology [...] or malignancies. 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 She still smokes 1/2 [...] are appreciated. No petechiae. Laboratory: Labs from [place]: Homocysteine 8.5 and SANIA negative. CBC: White [...] laboratory studies that have been obtained from [place], it does not appear that she has [...] supplementation. Karen Hoff M.D. Lukasz Sellers M.D. doughnut glazier / [id number] / [id number] / [id number] / [id number] cc: Pedrito Gutierrez M.D. [facility] [address] [place] [address] FAX: [phone] Electronically signed by Lukasz Sellers 08-18-2005 01:27:53 PM documented i n this encounter Plan of Treatment Not on filedocumented as of this encounter Visit Diagnoses Not on filedocumented in this encounter"
--- OUTSIDE RECORDS SUMMARY | ~2020-02-29 | XMS | Encounter Summary ---
Demographics + + + | Address | [address] | | | [place] [address] | + + + | Home [...] Providers + +------+ + | Care Supervisor Grove Name | Role | Phone | + [...] of this encounter Progress Notes Interface, Cost Estimator In - 01/12/2005 6:32 AM PDT Referred [...] she was going to go to the [employer] food store and try to find another [...] two months. Svetlana Maki R.D. SR/x35 P [id number] signed by Interface, Cost Estimator In at 01/12/2005 6:32 AM [facility] in this encounter Plan of Treatment Not on filedocumented as of this encounter Visit Diagnoses Not on filedocumented in this encounter"
--- OUTSIDE RECORDS SUMMARY | 2020-02-29 18:30 | XMS ---
PreManage Notification: NAFISA GALARZA Security Procurement Buyer Events No recent Security Events currently on file CRITERIA MET - Group Notification - 6 ED Visits in 6 Months - [facility] - Has Care Guidelines - [facility] - 2 Visits in 30 Days CARE PROVIDERS LLOYD, Internal Medicine Current [employer] PHONE: [phone] Tania Richards Principal Technologist/Automatic Pinsetter Adjuster 08/13/2016-Current PHONE: [phone] Daniella has no Care Guidelines for this patient. Care History Medical/Surgical 12/14/2018 [facility] HISTORY:\T\nbsp; SPINE SURGERY - PAIN MEDICATIONS [facility] [place] ([phone]) HX: MENIERE\T\#39; S SYNDROME (HAS RX FOR MECLIZINE THROUGH PCP DR CLEMENCIA [place]); MIGRAINES;OSTEOARTHRITIS;SCOLIOSIS;DUMPING SYNDROME;IBS CHRONIC PAIN. 11/10/2018 [facility] - [facility] CONTACTED PATIENT. PATIENT HAS A PCP APT WITH PCP OFFICE ON 11/15/18 FOR ER FOLLOW UP. Mona VISIT COUNT (12 MO.) 8 DAVID Martin TOTAL 8 NOTE: Visits indicate total known visits. ED/UCC VISIT TRACKING (12 MO.) 02/29/2020 18:28 [facility] [place] TYPE: Emergency COMPLAINT: - L SIDE HEAD,NECK,ARM PAIN 02/29/2020 06:12 [facility] [place] TYPE: Emergency COMPLAINT: - NECK PAIN NON INJURY 01/25/2020 16:14 [facility] [place] TYPE: Emergency COMPLAINT: - L SIDE CHEST SORE DIAGNOSES: - Disorder of the skin and subcutaneous tissue, unspecified 12/13/2019 19:11 [facility] [place] TYPE: Emergency COMPLAINT: - NAUSEA, HEADACHE DIAGNOSES: - Personal history of nicotine dependence - Allergy status to penicillin - Other alf (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 - Allergy status to sulfonamides status - Migraine, unspecified, not intractable, without status migrai - Allergy status to narcotic agent status - Allergy status to other antibiotic agents status - Allergy status to other drugs, medicaments and biological sub 11/17/2019 21:04 [facility] [place] TYPE: Emergency COMPLAINT: - LEFT ANKLE PAIN DIAGNOSES: - Other pedicab driver (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 - Personal history of [...] status to analgesic agent status - Other pedicab driver (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 - Vomiting, unspecified [...] status to narcotic agent status - Other alf (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 - Allergy status to sulfonamides status - Cellulitis of left lower limb - Allergy status to other antibiotic agents status - Migraine, unspecified, not intractable, without status migrai 06/25/2019 21:[address] [facility] [place] TYPE: Emergency COMPLAINT: - RIGHT SHOULD/ARM PAIN DIAGNOSES: - Allergy status to sulfonamides status - Other alf (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 - Allergy status to [...] visits to display in this time frame [id number]
== END 2020-03-01 00:54 | disposition home or self-care (01) ==
LOC: ED 18:28
DX: M54.2 Cervicalgia (principal); G43.909 Migraine, unspecified, not intractable, without status migrainosus; Z86.73 Personal history of transient ischemic attack (TIA), and cerebral infarction without residual deficits; Z88.1 Allergy status to other antibiotic agents; Z88.5 Allergy status to narcotic agent; Z88.0 Allergy status to penicillin; Z88.8 Allergy status to other drugs, medicaments and biological substances; Z88.2 Allergy status to sulfonamides; Z79.899 Other long term (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
CPT/HCPCS: 72125; 99284-25

== ENCOUNTER 2021-11-28 07:00 | Day surgery (SDC) | payer MEDICARE, OTHER ==
[~2021-11-28] VITALS: Ht 167.6 cm; Wt 100.9 kg
[2021-11-28] MEDS ORDERED: RECLAST 55 MG/100 M IV (07:56)
[2021-11-28] MEDS ORDERED: AIMOVIG AU140 MG/1 M IM (08:06)
--- NOTE | 2021-11-28 09:17 | NUR ---
11/28/21 0917 Melinda Clarke 0915 PATIENT ARRIVES TO PACU UNRESPONSIVE TO PAIN. ORAL AIRWAY IN PLACE. RESP EVEN AND UNLABORED, MASK AT 6 LITERS.
--- NOTE | 2021-11-28 18:26 | OR ---
[facility] [address], [place] [address] Signed DATE OF OPERATION: 11/28/2021 SURGEON: Lanie Kilgore MD PREOPERATIVE DIAGNOSES: 1. Upper abdominal pain and bloating; history of Zoe-en-Y gastric bypass with significant weight loss (209 pounds). 2. Episodic diarrhea and rectal bleeding. POSTOPERATIVE DIAGNOSES: 1. Normal anatomy of Zoe-en-Y gastric bypass without sign of gastric outlet obstruction, ulceration, neoplasm, inflammation or other abnormality. 2. Possible small polyp at 30 cm (excised). No evidence of obvious colitis or cancer or diverticulosis. PROCEDURES: 1. Esophagogastroduodenoscopy with biopsy. 2. Total colonoscopy to cecum with biopsies and excision of possible polyp at 30 cm. ANESTHESIA: Intravenous sedation, propofol infusion, Lanie Leon CRNA and preoperative antibiotic, Levaquin. INDICATION: This 61-year-old white woman has innumerable medical problems. She remains a patient of Dr. Booth in [place], [place]. She was referred by Dr. Booth for upper endoscopy noting abdominal bloating symptoms self described "reflux" for which she takes omeprazole and Zofran. She has no associated dysphagia or hematemesis. Additionally, she has complaints of diarrhea and occasions of rectal bleeding. She is well known to have chronic pain syndrome as well as morbid obesity, though over time is now lost 209 pounds. She has also had small bowel obstruction in the past. She has had knee replacements as well. She is admitted to undergo upper endoscopy and colonoscopy. She understands the risk of bleeding, infection, and perforation. FINDINGS: Upper endoscopy showed conventional anatomy consistent with Zoe-en-Y gastric bypass. There were no abnormalities. On colonoscopy, the prep was adequate. Complete colonoscopy was undertaken of the cecum and with the assistance of irrigation and so forth complete and good visualization of Electronically Signed By: LANIE KILGORE MD 11/28/21 1826 PATIENT NAME: NAFISA GALARZA OPERATIVE REPORT DATE OF : 58 REPORT #: [id number] PHYSICIAN: LANIE KILGORE MD PCP: JOHN DESAI REPORT IS CONFIDENTIAL AND NOT TO BE RELEASED WITHOUT AUTHORIZATION [facility] [address], [place] [address] Signed the entire colon undertaken including the cecum. The cecum was rather thin and mildly inflamed and biopsied. There was a small mucosal hypertrophy area in the right colon, which was biopsied and a small probable polyp at 30 cm which was excised. The rectal biopsy was obtained as well. There is no evidence of diverticulosis, bowel obstruction, abbie neoplasm or colitis. DESCRIPTION OF PROCEDURE: The patient was brought to the surgical endoscopy suite and placed in the lateral decubitus position. Dentures were left in per the patient preference and noting extreme adherence of upper and lower plates due to her denture preparation. After satisfactory intravenous sedation with propofol infusional technique, bite block was placed. Notably preoperative antibiotic Levaquin had been given. She did have a local reaction to it, though it was all completely given. After satisfactory sedation, an Olympus video upper endoscope was passed in the hypopharynx. The vocal cords appeared normal. Scope was advanced to the esophagus, throughout its length it was essentially normal. promptly entered into a very small gastric pouch as predicted from Zoe-en-Y gastric bypass. Outlet of the pouch to the jejunal limb was widely patent without sign of ulceration, stricture, neoplasm or inflammation. The scope was advanced as far as possible down the limb, though I never did encounter the duodenal connection to it. The scope was withdrawn and examination of the Zoe limb showed no sign of abnormality, certainly, no neoplasm, stricture or abnormal configuration. Re-examination of the stomach showed no sign of inflammation, ulceration, or other problem. Retroflexed view showed a reasonably intact flap valve. Biopsies were taken of the pouch. The scope was withdrawn. Distal esophageal biopsies also obtained as well as midesophageal biopsies. Scope was removed and plans were then made for colonoscopy. Digital rectal examination was found to be normal. Olympus video colonoscope was passed in the rectum and manipulated throughout the colon ultimately intubating the cecum itself. The ileocecal valve and appendiceal orifice were normal. Cecum was rather friable and easily made to bleed. Biopsies were obtained. The scope was withdrawn. In the mid right colon was a linear area of mucosal hypertrophy, which was also biopsied though unlikely to be pathologically significant. Further withdrawal showed a small polyp at 30 cm which was excised completely. Withdrawal to the rectum showed no evidence of proctitis. Biopsies were taken nevertheless given her diarrhea complaint. The scope was removed. The patient was taken to the recovery room in good condition. CONCLUDING DIAGNOSIS: Essentially normal upper endoscopy with typical Zoe-en-Y anatomy from prior gastric bypass. Additionally, no lesion to account for her current symptoms. Specifically, no cancer, obvious colitis, diverticulitis or other issue. Electronically Signed By: LANIE KILGORE MD 11/28/21 1826 PATIENT NAME: NAFISA GALARZA OPERATIVE REPORT DATE OF : 58 REPORT #: [id number] PHYSICIAN: LANIE KILGORE MD PCP: JOHN DESAI REPORT IS CONFIDENTIAL AND NOT TO BE RELEASED WITHOUT AUTHORIZATION [address] [place], [place] [address] Signed MD DANO Zapien/PRICE /[id number] cc: Dr. Booth, [place] Copies: ~ Electronically Signed By: LANIE KILGORE MD 11/28/21 1826 PATIENT NAME: NAFISA GALARZA OPERATIVE REPORT DATE OF : 58 REPORT #: [id number] PHYSICIAN: LANIE KILGORE MD PCP: JOHN DESAI REPORT IS CONFIDENTIAL AND NOT TO BE RELEASED WITHOUT AUTHORIZATION
--- NOTE | 2021-12-02 15:16 | PATH ---
[facility] [address], [place] [address] Signed SPECIMEN(S): A STOMACH BIOPSY SPECIMEN(S): B LOWER ESOPHAGUS BIOPSY SPECIMEN(S): C MIDDLE ESOPHAGEAL BIOPSY SPECIMEN(S): D CECUM BIOPSY SPECIMEN(S): E ASCENDING/RIGHT COLON BIOPSY SPECIMEN(S): F COLON POLYP AT 30 CM SPECIMEN(S): G RECTAL BIOPSY SPECIMEN SOURCE: A. STOMACH BIOPSY B. LOWER ESOPHAGUS BIOPSY C. MIDDLE ESOPHAGEAL BIOPSY D. CECUM BIOPSY E. ASCENDING/RIGHT COLON BIOPSY F. COLON POLYP AT 30 CM G. RECTAL BIOPSY CLINICAL HISTORY: Colonoscopy and EGD. Cecal volvulus, abdominal pain. Postop: EGD normal, small polyp x 1. FINAL PATHOLOGIC DIAGNOSIS: A. Stomach, biopsy: - Oxyntic mucosa with minimal focal chronic, inactive gastritis. - Negative for Helicobacter organisms on HE stain. - Negative for dysplasia or malignancy. B. Esophagus, lower, biopsy: - Reflux esophagitis. - Negative for intestinal metaplasia, dysplasia, or malignancy. C. Esophagus, middle, biopsy: - Squamous mucosa with mixed acute and chronic inflammation and reactive epithelial changes, suggestive of reflux esophagitis. - Negative for increased intraepithelial eosinophils. - Negative intestinal metaplasia, dysplasia, or malignancy. D. Colon, cecum, biopsy: - Colonic mucosa with no histopathologic abnormality. - Negative for active, chronic, or microscopic colitis. - Negative for dysplasia or malignancy. E. Colon, ascending, biopsy: - Colonic mucosa with no histopathologic abnormality. - Negative for active, chronic, or microscopic colitis. PATIENT NAME: NAFISA GALARZA PATHOLOGY DATE OF : 58 REPORT #: [id number] PHYSICIAN: RICKEY YUSUF PCP: JOHN DESAI REPORT IS CONFIDENTIAL AND NOT TO BE RELEASED WITHOUT AUTHORIZATION [facility] [address], [place] [address] Signed - Negative for dysplasia or malignancy. F. Colon, polyp at 30 cm, polypectomy: - Tubular adenoma. - Negative for high-grade dysplasia or malignancy. G. Rectum, biopsy: - Rectal mucosa with no histopathologic abnormality. - Negative for active or chronic proctitis. - Negative dysplasia or malignancy. NAL:cml:C2NR MICROSCOPIC EXAMINATION: Histologic sections of all submitted blocks are examined by light microscopy. These findings, together with the gross examination, support the pathologic diagnosis. GROSS DESCRIPTION: Seven specimens are received in seven containers, labeled "BM." A. The specimen, labeled "BM, stomach biopsy," is received in formalin and consists of two karimi soft tissue fragments that measure 0.2 cm in greatest dimension. The specimen is entirely submitted in cassette (A1). B. The specimen, labeled "BM, lower esophagus biopsy," is received in formalin and consists of two karimi soft tissue fragments that measure 0.2-0.3 cm in greatest dimension. The specimen is entirely submitted in cassette (B1). C. The specimen, labeled "BM, middle esophagus biopsy," is received in formalin and consists of three karimi soft tissue fragments that measure 0.1-0.2 cm in greatest dimension. The specimen is entirely submitted in cassette (C1). D. The specimen, labeled "BM, cecum biopsy," is received in formalin and consists of one karimi soft tissue fragment that measures 0.2 cm in greatest dimension. The specimen is entirely submitted in cassette (D1). E. The specimen, labeled "BM, ascending colon biopsy," is received in formalin and consists of one karimi soft tissue fragment that measures 0.1 cm in greatest dimension. The specimen is entirely submitted in cassette (E1). F. The specimen, labeled "BM, colon polyp at 30 cm," is received in formalin and consists of one karimi soft tissue fragment that measures 0.2 cm in greatest dimension. The specimen is entirely PATIENT NAME: NAFISA GALARZA PATHOLOGY DATE OF : 58 REPORT #: [id number] PHYSICIAN: RICKEY YUSUF PCP: JOHN DESAI REPORT IS CONFIDENTIAL AND NOT TO BE RELEASED WITHOUT AUTHORIZATION [facility] [address], [place] [address] Signed submitted in cassette (F1). G. The specimen, labeled "BM, rectum biopsy," is received in formalin and consists of two karimi soft tissue fragments that measure 0.1-0.2 cm in greatest dimension. The specimen is entirely submitted in cassette (G1). JS (under the direct supervision of a pathologist) The Gross Description was prepared using a voice recognition system. The report was reviewed for accuracy; however, sound-alike word errors, addition and/or deletions may occur. If there is any question about this report, please contact Client Services. PERFORMING LABORATORY: The technical component was performed by [employer], [address] [place] [id number] (CLIA# [id number]). Professional interpretation was performed by [employer], [facility], [address] [place] [id number] (CLIA# [id number]). Diagnostician: Babita Philippe MD Pathologist Electronically Signed 11/30/2021 Copies: ~ PATIENT NAME: NAFISA GALARZA PATHOLOGY DATE OF : 58 REPORT #: [id number] PHYSICIAN: RICKEY PATHOLOGY PCP: JOHN DESAI REPORT IS CONFIDENTIAL AND NOT TO BE RELEASED WITHOUT AUTHORIZATION
== END 2021-11-28 10:05 | disposition home or self-care (01) ==
LOC: OPS 07:00 → DS 07:00 → OPS 08:30 → DS 09:00 → OPS 10:05 → DS 11:00 → OPS 11:00
PROVIDERS: ATTEND Surgery
PROC: 0DB68ZX Excision of Stomach, Via Natural or Artificial Opening Endoscopic, Diagnostic (ICD-10-PCS; principal; 2021-11-28 08:30)
PROC: 0DBF8ZX Excision of Right Large Intestine, Via Natural or Artificial Opening Endoscopic, Diagnostic (ICD-10-PCS; 2021-11-28 08:30)
DX: K29.50 Unspecified chronic gastritis without bleeding (principal); K21.00 Gastro-esophageal reflux disease with esophagitis, without bleeding; D12.6 Benign neoplasm of colon, unspecified; K62.5 Hemorrhage of anus and rectum; G89.4 Chronic pain syndrome; E66.01 Morbid (severe) obesity due to excess calories; Z96.659 Presence of unspecified artificial knee joint; Z68.33 Body mass index [BMI] 33.0-33.9, adult; K56.2 Volvulus
CPT/HCPCS: J1956; J2405; J2704; J7121

== ENCOUNTER 2023-12-07 18:58 | Emergency (ER) | payer MEDICARE, OTHER ==
[~2023-12-07] VITALS: Ht 167.6 cm; Wt 97.0 kg
[~2023-12-07 18:58] MED LIST changes: +AIMOVIG AU140 MG/1 M IM
[2023-12-07] MEDS ORDERED: PERCOCET 5-3251 EACH PO (19:18)
[2023-12-07] MEDS ORDERED: FENTANYL1 EACH TD (19:19)
[2023-12-07] MEDS ORDERED: LINEZOLID600 MG PO (19:25)
[2023-12-07 19:27] LABS: BASOPHILS 0.8 % (0-2); EOSINOPHILS 1.2 % (0-6); HEMATOCRIT 44.3 % (35.0-50.0); HEMOGLOBIN 14.6 g/dL (12.0-18.0); MCH 31.7 (27-36); MONOCYTES 11.9 % (0-12); NEUTROPHILS 55.1 % (39-80); PLATELET COUNT 179 K/uL (140-440); RBC 4.62 M/ul (4.3-5.7); RDW 12.6 (10.5-15.0)
[2023-12-07] MEDS ORDERED: LINEZOLID 600 MG TAB PO ONE (19:30)
[2023-12-07 19:49] VITALS: BP 131/84
== END 2023-12-07 19:59 | disposition home or self-care (01) ==
LOC: ED 18:58
PROVIDERS: Family Medicine
DX: L03.116 Cellulitis of left lower limb (principal); H54.62 Unqualified visual loss, left eye, normal vision right eye; Z88.1 Allergy status to other antibiotic agents; Z88.5 Allergy status to narcotic agent; Z88.0 Allergy status to penicillin; Z88.2 Allergy status to sulfonamides; Z88.8 Allergy status to other drugs, medicaments and biological substances; Z79.899 Other long term (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; Z79.890 Hormone replacement therapy
CPT/HCPCS: 36415; 85025

== ENCOUNTER 2025-03-05 11:53 | Emergency (ER) | payer OTHER, MEDICARE ==
[~2025-03-05] VITALS: Ht 167.6 cm; Wt 87.3 kg
--- OUTSIDE RECORDS SUMMARY | ~2025-03-05 | XMS | Continuity of Care Document ---
Demographics + + + | Address | [address] | | | [place] [address] | + + + | Preferred Language | Unknown | + + + | Marital Status | unknown | + + + | Congregation Affiliation | Unknown | + + + | Race | Unknown | + + + | Ethnic Group | Unknown | + + + Author + + + | Author | [facility] | + + + | Organization | [facility] | + + + | Address | [address] | | | [place] [address] | + + + | Phone | | + + + Care Team Providers + + + + | Care Etcher Enameling Name | Role | Phone | + + + + Unavailable | Unavailable | + + + + Allergies No information. Encounters No information. Functional Status No information. Immunizations No information. Medications No information. Problems + + + + | date | description | facility | + + + + | 2025-02-02 16:27:31 | Mild intermittent asthma, | [facility] | | | uncomplicated | Care) | + + + + Procedures No information. Results/Labs No information. Social History +--------+ + + | date | description | facility | +--------+ + + Vital Signs No information."
[~2025-03-05 11:53] MED LIST changes: +FENTANYL1 EACH TD; +LINEZOLID600 MG PO; +PERCOCET 5-3251 EACH PO
[2025-03-05] MEDS ORDERED: OXYCODONE/APAP 5/325 TAB PO ONE (13:30)
[2025-03-05 15:08] VITALS: BP 101/66
== END 2025-03-05 15:09 | disposition home or self-care (01) ==
LOC: ED 11:53
DX: S70.01XA Contusion of right hip, initial encounter (principal); M54.50 Low back pain, unspecified; G43.909 Migraine, unspecified, not intractable, without status migrainosus; M19.90 Unspecified osteoarthritis, unspecified site; W01.0XXA Fall on same level from slipping, tripping and stumbling without subsequent striking against object, initial encounter; Z79.899 Other long term (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; Z88.1 Allergy status to other antibiotic agents; Z88.5 Allergy status to narcotic agent; Z88.0 Allergy status to penicillin; Z88.2 Allergy status to sulfonamides; Z88.8 Allergy status to other drugs, medicaments and biological substances
CPT/HCPCS: 72100; 73502; 99283

== ENCOUNTER 2025-03-16 15:03 | Emergency (ER) | payer MEDICARE, OTHER ==
[~2025-03-16] VITALS: Ht 167.6 cm; Wt 83.0 kg
--- OUTSIDE RECORDS SUMMARY | ~2025-03-16 | XMS | Continuity of Care Document ---
Demographics + + + | Address | [address] | | | [place] [address] | + + + | Preferred Language | Unknown | + + + | Marital Status | unknown | + + + | Sabianism Affiliation | Unknown | + + + | Race | Unknown | + + + | Ethnic Group | Unknown | + + + Author + + + | Author | [facility] | + + + | Organization | [facility] | + + + | Address | [address] | | | [place] [address] | + + + | Phone | | + + + Care Team Providers + + + + | Care Marketing Rep Name | Role | Phone | + + + + Unavailable | Unavailable | + + + + Allergies No information. Encounters No information. Functional Status No information. Immunizations No information. Medications No information. Problems + + + + | date | description | facility | + + + + | 2025-02-02 16:27:31 | Mild intermittent asthma, | [facility] ([facility] | | | uncomplicated | Care) | + + + + Procedures No information. Results/Labs No information. Social History +--------+ + + | date | description | facility | +--------+ + + Vital Signs No information."
[2025-03-16 15:30] LABS: BASOPHILS 0.5 % (0.1-1.2); EOSINOPHILS 0.5 % (0.7-5.8); LYMPHOCYTES 32.0 % (19.3-51.7); MCH 34.1 PG (25.6-32.2); MCHC 33.9 g/dL (32.2-35.5); MCV 100.7 fL (79.4-94.8); MONOCYTES 10.3 % (4.7-12.5); NEUTROPHILS 56.5 % (34.0-71.1); RBC 4.19 M/uL (3.93-5.22)
[2025-03-16 15:46] LABS: ALT (SGPT) 45.0 U/L (14-59); AST (SGOT) 71.0 U/L (15-37); GLOMERULAR FILTRATION RATE,EST 56.0 mL/min (>60); PROTEIN, TOTAL 6.1 g/dL (6.4-8.2); UREA NITROGEN 10.0 mg/dL (7-18)
[2025-03-16 18:33] VITALS: BP 98/54
== END 2025-03-16 18:34 | disposition home or self-care (01) ==
LOC: ED 15:03
PROVIDERS: Emergency Medicine
DX: K52.9 Noninfective gastroenteritis and colitis, unspecified (principal); M81.0 Age-related osteoporosis without current pathological fracture; Z98.84 Bariatric surgery status; Z86.73 Personal history of transient ischemic attack (TIA), and cerebral infarction without residual deficits; Z88.5 Allergy status to narcotic agent; Z88.6 Allergy status to analgesic agent; Z88.0 Allergy status to penicillin; Z88.2 Allergy status to sulfonamides; Z88.1 Allergy status to other antibiotic agents; Z88.8 Allergy status to other drugs, medicaments and biological substances; Z79.890 Hormone replacement therapy; Z79.899 Other long term (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
CPT/HCPCS: 36415; 80053; 83690; 85025; 87045; 87046; 99284

== ENCOUNTER 2025-04-24 11:10 | Emergency (ER) | payer OTHER, MEDICARE ==
[~2025-04-24] VITALS: Ht 167.6 cm; Wt 82.3 kg
--- OUTSIDE RECORDS SUMMARY | ~2025-04-24 | XMS | Continuity of Care Document ---
Demographics + + + | Address | [address] | | | [place] [address] | + + + | Preferred Language | Unknown | + + + | Marital Status | unknown | + + + | Islam Affiliation | Unknown | + + + | Race | Unknown | + + + | Ethnic Group | Unknown | + + + Author + + + | Author | [facility] | + + + | Organization | [facility] | + + + | Address | [address] | | | [place] [address] | + + + | Phone | | + + + Care Team Providers + + + + | Care Critical Care Nurse Specialist Name | Role | Phone | + + + + Unavailable | Unavailable | + + + + Allergies No information. Encounters No information. Functional Status No information. Immunizations No information. Medications No information. Problems + + + + | date | description | facility | + + + + | 2025-02-02 16:27:31 | Mild intermittent asthma, | [facility] ([facility] | | | uncomplicated | Care) | + + + + Procedures No information. Results/Labs No information. Social History +--------+ + + | date | description | facility | +--------+ + + Vital Signs No information."
[2025-04-24] MEDS ORDERED: DIPHTH,PERTUSS(ACELL),TET VAC 0.5 ML SYRINGE IM ONE (11:30)
[2025-04-24 12:10] VITALS: BP 102/64
== END 2025-04-24 12:04 | disposition home or self-care (01) ==
LOC: ED 11:10
DX: S81.812A Laceration without foreign body, left lower leg, initial encounter (principal); S30.810A Abrasion of lower back and pelvis, initial encounter; S50.311A Abrasion of right elbow, initial encounter; G43.909 Migraine, unspecified, not intractable, without status migrainosus; M19.90 Unspecified osteoarthritis, unspecified site; W54.1XXA Struck by dog, initial encounter; Z79.899 Other long term (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; Z88.0 Allergy status to penicillin; Z88.5 Allergy status to narcotic agent; Z88.1 Allergy status to other antibiotic agents
CPT/HCPCS: 12002; 90471; 90715; 99283-25

== ENCOUNTER 2025-05-05 17:35 | Emergency (ER) | payer MEDICARE, OTHER ==
[~2025-05-05] VITALS: Ht 167.6 cm; Wt 82.6 kg
[2025-05-05] MEDS ORDERED: QULIPTA60 MG PO (17:55)
[2025-05-05] MEDS ORDERED: EVENITY (2210 MG/2.3 SUB-Q (17:57)
[2025-05-05] MEDS ORDERED: ALLERGY RELIEF180 MG PO (17:58)
[2025-05-05] MEDS ORDERED: VENLAFAXINE H37.5 M1 PO (17:59)
[2025-05-05] MEDS ORDERED: OXYCODONE/APAP 5/325 TAB PO ONE (19:30)
[2025-05-05 21:22] VITALS: BP 108/64
== END 2025-05-05 21:23 | disposition home or self-care (01) ==
LOC: ED 17:35
DX: S70.01XA Contusion of right hip, initial encounter (principal); W01.0XXA Fall on same level from slipping, tripping and stumbling without subsequent striking against object, initial encounter; Z79.899 Other long term (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; Z88.5 Allergy status to narcotic agent; Z88.1 Allergy status to other antibiotic agents; Z88.8 Allergy status to other drugs, medicaments and biological substances; Z88.0 Allergy status to penicillin; Z88.2 Allergy status to sulfonamides
CPT/HCPCS: 70450; 72125; 73502; 99284-25